=== PATIENT | male | born 1935 | race Caucasian/White ===

== ENCOUNTER → 2017-04-21 09:00 | Outpatient (CLI) | payer MEDICARE, OTHER, SELFPAY ==
[2017-04-21 13:02] LABS: Prothrombin Time (Protime)PT. 21.5 SECONDS (11.7-14.9)
== END ==
PROVIDERS: Visit Provider Internal Medicine Cardiovascular Disease
DX: I48.0 Paroxysmal atrial fibrillation (principal)
CPT/HCPCS: 85610

== ENCOUNTER → 2017-06-23 11:55 | Outpatient (CLI) | payer MEDICARE, SELFPAY | PROVIDERS: PCP Family Medicine; Visit Provider Internal Medicine Cardiovascular Disease | DX: I48.0 Paroxysmal atrial fibrillation (principal) | CPT/HCPCS: 85610 ==

== ENCOUNTER → 2017-08-11 11:45 | Outpatient (CLI) | payer MEDICARE, SELFPAY ==
[2017-08-11 12:05] LABS: International Normalized Ratio 3.1; Prothrombin Time (Protime)PT. 32.5 SECONDS (11.7-14.9)
== END ==
PROVIDERS: Visit Provider Internal Medicine Cardiovascular Disease
DX: I48.0 Paroxysmal atrial fibrillation (principal)
CPT/HCPCS: 85610

== ENCOUNTER → 2017-08-25 08:49 | Outpatient (CLI) | payer MEDICARE, SELFPAY ==
--- NOTE | 2017-08-25 08:49 | DT_ITS ---
This patient was seen during an EMR downtime August 24, 2017 - August 31, 2017. This patient may have a combination of paper and electronic documentation or all paper documentation. All documentation is viewable within the e-chart portion of [facility] for each patient visit.
[2017-09-01 15:47] LABS: International Normalized Ratio 2.4; Prothrombin Time (Protime)PT. 26.1 SECONDS (11.7-14.9)
== END ==
PROVIDERS: PCP Family Medicine; Visit Provider Internal Medicine Cardiovascular Disease
DX: I48.0 Paroxysmal atrial fibrillation (principal)
CPT/HCPCS: 85610

== ENCOUNTER → 2017-08-26 13:55 | Outpatient (CLI) | payer MEDICARE, SELFPAY ==
--- NOTE | 2017-08-26 13:55 | DT_ITS ---
This patient was seen during an EMR downtime August 24, 2017 - August 31, 2017. This patient may have a combination of paper and electronic documentation or all paper documentation. All documentation is viewable within the e-chart portion of [facility] for each patient visit.
[2017-08-31 16:02] LABS: Alanine Aminotransfer ALT/SGPT 38 U/L (16-61); CPK Total, Creatine Kinase 135 U/L (39-308)
[2017-09-01 16:54] LABS: Cholesterol 88 mg/dL (200); High Density Lipoprotein 36 mg/dL; Triglycerides 54 mg/dL; Very Low Density Lipoprotein 11 mg/dL (5-40)
== END ==
PROVIDERS: Visit Provider Internal Medicine Cardiovascular Disease
DX: I25.10 Atherosclerotic heart disease of native coronary artery without angina pectoris (principal)
CPT/HCPCS: 80061; 82550; 84460

== ENCOUNTER → 2017-09-08 12:23 | Outpatient (CLI) | payer MEDICARE, SELFPAY ==
[2017-09-08 12:40] LABS: International Normalized Ratio 2.2; Prothrombin Time (Protime)PT. 24.3 SECONDS (11.7-14.9)
== END ==
PROVIDERS: Visit Provider Internal Medicine Cardiovascular Disease
DX: I48.0 Paroxysmal atrial fibrillation (principal)
CPT/HCPCS: 85610

== ENCOUNTER → 2017-09-22 12:37 | Outpatient (CLI) | payer MEDICARE, SELFPAY | PROVIDERS: Family Provider Family Medicine; PCP Family Medicine; Visit Provider Internal Medicine Cardiovascular Disease | DX: I48.0 Paroxysmal atrial fibrillation (principal) | CPT/HCPCS: 85610 ==

== ENCOUNTER 2017-10-06 15:17 | Emergency (ER) | payer MEDICARE, SELFPAY ==
[2017-10-06 15:18] VITALS: BP 147/83; PULSE 70; RESP 18; TEMP 37.1; O2SAT 97; BMI 23.6
--- NOTE | 2017-10-06 16:02 | VDLE_ITS ---
Reason For Study: swelling RIGHT LEFT GSV is normal. CFV is compressible, spontaneous, phasic, CFV is compressible, spontaneous, phasic, competent, and demonstrates normal competent and demonstrates normal augmentation. augmentation. FV is compressible, spontaneous, phasic, competent and demonstrates normal augmentation. POP V is compressible, spontaneous, phasic, competent and demonstrates normal augmentation. T/P Trunk is compressible. PTV is compressible. RT PerV is compressible. Procedure Exam performed portable in ED. The exam was diagnostic. A preliminary report was called and/or faxed to Dr. Gillespie. Interpretation Summary Deep veins of the right lower extremity are patent and compressible segmentally. There is no evidence of right lower extremity deep vein thrombosis. Valvular competence appears intact within the proximal deep venous system on the right . The right greater saphenous vein appears patent and compressible segmentally. Ordering Physician: Kristian Gillespie Performed By: Cuauhtemoc Chapin RVDawna
--- NOTE | 2017-10-06 16:03 | ED.VISSUMM ---
- ER Visit Summary Date of Service: 10/06/17 Chief Complaint: Atraumatic right lower leg swelling History of Present Illness: The patient is a 82 M currently on Coumadin for A. fib. The last 2+ days he had atraumatic right lower leg and foot swelling. No prior history. No prior blood clot. No recent travel, immobilization or hospitalization. No recent surgery. He denies any pain. No trouble walking on it. He Physical Examination: Well-appearing older male. Vital signs are stable afebrile. Accompanied by his . H EENT exam unremarkable. Neck nontender. Lungs clear to auscultation bilaterally. Heart regular rhythm no murmur. Abdomen soft nontender. Moving all 4 extremities. Neurovascular intact. He is trace edema and is very lower right lower leg and lateral foot. DP pulses intact. The foot is completely nontender. There is no bony deformities or tenderness. No redness or warmth. No signs of trauma. He is able to wiggle his toes. His normal touch sensation. Calf is nontender without cords. Neurologically is awake and alert. 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 Noninvasive study of his right lower extremity no DVT per the reimbursement representative. Emergency Department Course and Treatment: Repeat exam patient doing well at 1630. They are comfortable being discharged home. He is having no pain and is fine with no x-ray being obtained at this time. He will elevate his leg if this does not improve he will follow-up. He was instructed his INR was slightly subtherapeutic at 1.7 and was instructed to take an extra dose this evening. Treatment Plan: Follow-up with his primary care physician if not improving. Disposition: Discharge Impression: Acute right lower leg and foot mild swelling and edema secondary to venous insufficiency Subtherapeutic INR 1.7 This note was generated with [employer] dictation software. It may contain incorrect words, spelling, and punctuation that were not noted in review of the chart prior to signing ED Disposition - Plan for ED Patient: Chief Complaint: Edema Referrals: Joseph Mora MD [Primary Care Provider] -
--- NOTE | 2017-10-06 16:06 | ED.DCSUM_ITS ---
- ER Visit Summary Date of Service: 10/06/17 Chief Complaint: Atraumatic right lower leg swelling History of Present Illness: The patient is a 82 M currently on Coumadin for A. fib. The last 2+ days he had atraumatic right lower leg and foot swelling. No prior history. No prior blood clot. No recent travel, immobilization or hospitalization. No recent surgery. He denies any pain. No trouble walking on it. He Physical Examination: Well-appearing older male. Vital signs are stable afebrile. Accompanied by his . H EENT exam unremarkable. Neck nontender. Lungs clear to auscultation bilaterally. Heart regular rhythm no murmur. Abdomen soft nontender. Moving all 4 extremities. Neurovascular intact. He is trace edema and is very lower right lower leg and lateral foot. DP pulses intact. The foot is completely nontender. There is no bony deformities or tenderness. No redness or warmth. No signs of trauma. He is able to wiggle his toes. His normal touch sensation. Calf is nontender without cords. Neurologically is awake and alert. 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 Noninvasive study of his right lower extremity no DVT per the apprenticeship consultant. Emergency Department Course and Treatment: Repeat exam patient doing well at 1630. They are comfortable being discharged home. He is having no pain and is fine with no x-ray being obtained at this time. He will elevate his leg if this does not improve he will follow-up. He was instructed his INR was slightly subtherapeutic at 1.7 and was instructed to take an extra dose this evening. Treatment Plan: Follow-up with his primary care physician if not improving. Disposition: Discharge Impression: Acute right lower leg and foot mild swelling and edema secondary to venous insufficiency Subtherapeutic INR 1.7 This note was generated with [email or web address] dictation software. It may contain incorrect words, spelling, and punctuation that were not noted in review of the chart prior to signing ED Disposition - Plan for ED Patient: Chief Complaint: Edema Referrals: Joseph Mora MD [Primary Care Provider] -
--- NOTE | 2017-10-06 16:34 | ED.DEP ---
ED Disposition - Plan for ED Patient: Disposition: Home or Assisted Living Chief Complaint: Edema Instructions: ED Leg Swelling Unilateral Referrals: Joseph Mora MD [Primary Care Provider] - 1 Week if not improving Additional Instructions: Your warfarin level was subtherapeutic today at 1.7. You may want to take an extra 2 mg p.o. this evening. And then take your normal dose tomorrow. Follow-up with your doctor if the swelling does not resolve or gets worse.
[2017-10-06 16:48] VITALS: BP 132/68; PULSE 68; RESP 16; O2SAT 97
== END 2017-10-06 16:49 | disposition home or self-care (01) ==
PROVIDERS: Emergency Provider Emergency Medicine; Family Provider Family Medicine; PCP Family Medicine
DX: I87.2 Venous insufficiency (chronic) (peripheral) (principal); I48.91 Unspecified atrial fibrillation; Z79.01 Long term (current) 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
CPT/HCPCS: 93971; 99282

== ENCOUNTER → 2017-10-13 13:07 | Outpatient (CLI) | payer MEDICARE, SELFPAY ==
[2017-10-13 13:28] LABS: International Normalized Ratio 2.3; Prothrombin Time (Protime)PT. 25.2 SECONDS (11.7-14.9)
== END ==
PROVIDERS: Family Provider Family Medicine; PCP Family Medicine; Visit Provider Internal Medicine Cardiovascular Disease
DX: I48.0 Paroxysmal atrial fibrillation (principal)
CPT/HCPCS: 85610

== ENCOUNTER → 2017-10-20 08:32 | Outpatient (CLI) | payer MEDICARE, SELFPAY ==
[2017-10-20 15:34] LABS: International Normalized Ratio 0.9; Prothrombin Time (Protime)PT. 12.1 SECONDS (11.7-14.9)
== END ==
PROVIDERS: Family Provider Family Medicine; PCP Family Medicine; Visit Provider Internal Medicine Cardiovascular Disease
DX: I48.0 Paroxysmal atrial fibrillation (principal)
CPT/HCPCS: 85610

== ENCOUNTER → 2017-10-27 12:32 | Outpatient (CLI) | payer MEDICARE, SELFPAY ==
[2017-10-27 13:00] LABS: International Normalized Ratio 2.2; Prothrombin Time (Protime)PT. 24.3 SECONDS (11.7-14.9)
== END ==
PROVIDERS: Family Provider Family Medicine; PCP Family Medicine; Visit Provider Internal Medicine Cardiovascular Disease
DX: I48.0 Paroxysmal atrial fibrillation (principal)
CPT/HCPCS: 85610

== ENCOUNTER → 2017-11-03 12:00 | Outpatient (CLI) | payer MEDICARE, SELFPAY ==
[2017-11-03 12:23] LABS: International Normalized Ratio 2.3; Prothrombin Time (Protime)PT. 25.8 SECONDS (11.7-14.9)
== END ==
PROVIDERS: Family Provider Family Medicine; PCP Family Medicine; Visit Provider Internal Medicine Cardiovascular Disease
DX: I48.0 Paroxysmal atrial fibrillation (principal)
CPT/HCPCS: 85610

== ENCOUNTER → 2017-11-17 11:57 | Outpatient (CLI) | payer MEDICARE, SELFPAY ==
[2017-11-17 12:16] LABS: International Normalized Ratio 2.3; Prothrombin Time (Protime)PT. 25.8 SECONDS (11.7-14.9)
== END ==
PROVIDERS: Family Provider Family Medicine; PCP Family Medicine; Visit Provider Internal Medicine Cardiovascular Disease
DX: I48.0 Paroxysmal atrial fibrillation (principal)
CPT/HCPCS: 85610

== ENCOUNTER → 2018-01-12 15:38 | Outpatient (CLI) | payer MEDICARE, SELFPAY ==
[2018-01-12 16:48] LABS: International Normalized Ratio 2.4; Prothrombin Time (Protime)PT. 26.5 SECONDS (11.7-14.9)
== END ==
PROVIDERS: Family Provider Family Medicine; PCP Family Medicine; Referring Provider Internal Medicine Cardiovascular Disease; Visit Provider Internal Medicine Cardiovascular Disease
DX: I48.0 Paroxysmal atrial fibrillation (principal)
CPT/HCPCS: 85610

== ENCOUNTER → 2018-02-09 10:01 | Outpatient (CLI) | payer MEDICARE, SELFPAY | PROVIDERS: PCP Family Medicine; Visit Provider Internal Medicine Cardiovascular Disease | DX: I48.0 Paroxysmal atrial fibrillation (principal) | CPT/HCPCS: 85610 ==

== ENCOUNTER → 2018-03-09 11:55 | Outpatient (CLI) | payer MEDICARE, SELFPAY ==
[2018-03-09 13:04] LABS: International Normalized Ratio 2.2; Prothrombin Time (Protime)PT. 24.5 SECONDS (11.7-14.9)
--- OUTSIDE RECORDS SUMMARY | 2018-06-10 21:30 | XMS RPT_ITS ---
:1935 Author Organization OHIP Support Name Relationship Address Phone KAILASH HULL Unavailable Unavailable + [place] [address] TOÑITO HULL Unavailable [address] + [place] [address] R Unavailable Unavailable Unavailable DELLA, KAILASH Unavailable Unavailable + [place] [address] DELLA TOÑITO Unavailable [address] + [place] [address] R Unavailable Unavailable Unavailable DELLA, KAILASH Unavailable Unavailable + [place] [address] DELLA TOÑITO Unavailable [address] + [place] [address] R Unavailable Unavailable Unavailable DELLA, KAILASH Unavailable Unavailable + [place] [address] DELLA TOÑITO Unavailable [address] + [place] [address] R Unavailable Unavailable Unavailable DELLA, KAILASH Unavailable Unavailable + [place] [address] DELLA TOÑITO Unavailable [address] + [place] [address] R Unavailable Unavailable Unavailable DELLA, KAILASH Unavailable Unavailable + [place] [address] DELLA TOÑITO Unavailable [address] + [place] [address] R Unavailable Unavailable Unavailable DELLA, KAILASH Unavailable Unavailable + [place] [address] DELLA TOÑITO Unavailable [address] + [place] [address] R Unavailable Unavailable Unavailable DELLA, KAILASH Unavailable Unavailable + [place] [address] DELLA TOÑITO Unavailable [address] + [place] [address] R Unavailable Unavailable Unavailable DELLA, KAILASH Unavailable Unavailable + [place] [address] DELLA, TOÑITO Unavailable [address] + [place] [address] R Unavailable Unavailable Unavailable DELLA, KAILASH Unavailable Unavailable + [place] [address] DELLA, TOÑITO Unavailable [address] + [place] [address] R Unavailable Unavailable Unavailable DELLA, KAILASH Unavailable Unavailable + [place] [address] DELLA, TOÑITO Unavailable [address] + [place] [address] R Unavailable Unavailable Unavailable DELLA, KAILASH Unavailable Unavailable + [place] [address] DELLA, TOÑITO Unavailable [address] + [place] [address] R Unavailable Unavailable Unavailable DELLA, KAILASH Unavailable Unavailable + [place] [address] DELLA, TOÑITO Unavailable [address] + [place] [address] R Unavailable Unavailable Unavailable DELLA, KAILASH Unavailable Unavailable + [place] [address] DELLA, TOÑITO Unavailable [address] + [place] [address] R Unavailable Unavailable Unavailable DELLA, KAILASH Unavailable Unavailable + [place] [address] DELLA, TOÑITO Unavailable [address] + [place] [address] R Unavailable Unavailable Unavailable DELLA, KAILASH Unavailable Unavailable + [place] [address] DELLA, TOÑITO Unavailable [address] + [place] [address] R Unavailable Unavailable Unavailable DELLA, TOÑITO Unavailable [address] + [place] [address] R Unavailable Unavailable Unavailable Care Team Providers Name Role Phone Rosanna Oliveira Attending Unavailable Rosanna Oliveira Referring Unavailable Stas Carter Primary Care Unavailable Rosanna Oliveira Attending Unavailable Rosanna Oliveira Referring Unavailable Stas Carter Primary Care Unavailable Katelin Henry Consulting Unavailable Tee, Rosanna Attending Unavailable [facility] Unavailable Rock, Rosanna Referring Unavailable Rock, Rosanna Attending Unavailable Tee, Rosanna Attending Unavailable Tee, Rosanna Referring Unavailable Tee, Rosanna Attending Unavailable Rock, Rosanna Referring [facility]available [facility] [place] [facility] Unavailable Rock, Rosanna Attending [facility]available Rock, Rosanna Referring Unavailable Rock, Rosanna Attending Unavailable [facility] Unavailable Tee, Rosanna Attending Unavailable Tee, Rosanna Attending Unavailable [facility] Unavailable Rock, Rosanna Referring Unavailable Tee, Rosanna Attending Unavailable [facility] Unavailable Tee, Rosanna Attending Unavailable Tee, Rosanna Referring Unavailable [facility] Unavailable Rock, Rosanna Attending Unavailable [facility] Unavailable Tee, Rosanna Referring Unavailable [facility] Unavailable Kristian Gillespie Attending Unavailable Tee, Rosanna Attending Unavailable [facility] Unavailable Tee, Rosanna Attending Unavailable Tee, Rosanna Attending Unavailable [facility] Unavailable Tee, Rosanna Referring Unavailable TEE, ROSANNA E Attending Unavailable TEE, ROSANNA E Referring Unavailable TEE, ROSANNA E Referring Unavailable TEE, ROSANNA E Referring Unavailable TEE, ROSANNA E Referring Unavailable TEE, ROSANNA E Referring Unavailable TEE, ROSANNA E Referring Unavailable TEE, ROSANNA E Referring Unavailable TEE, ROSANNA E Referring Unavailable TEE, ROSANNA E Referring Unavailable TEE, ROSANNA E Referring Unavailable TEE, ROSANNA E Referring Unavailable TEE, ROSANNA E Referring Unavailable TEE, ROSANNA E Referring Unavailable TEE, ROSANNA E Referring Unavailable TEE, ROSANNA E Referring Unavailable TEE, ROSANNA E Referring Unavailable TEE, ROSANNA E Referring Unavailable TEE, ROSANNA E Referring Unavailable TEE, ROSANNA E Referring Unavailable TEE, ROSANNA E Referring Unavailable TEE, ROSANNA E Referring Unavailable TEE, ROSANNA E Referring Unavailable TEE, ROSANNA E Referring Unavailable GABRIELA RAMIREZ ([facility]) Attending Unavailable TEE, ROSANNA E Referring Unavailable TEE, ROSANNA E Referring Unavailable TEE, ROSANNA E Referring Unavailable TEE, ROSANNA E Referring Unavailable TEE, ROSANNA E Referring Unavailable TEE, ROSANNA E Referring Unavailable TEE, ROSANNA E Referring Unavailable RORO NUÑEZ ([place]) Attending Unavailable TEE, ROSANNA E Referring Unavailable KATELIN MORROW (SENIOR PRODUCT DEVELOPMENT SCIENTIST) Attending Unavailable TEE, ROSANNA E Attending Unavailable TEE, ROSNANA E Referring Unavailable TEE, ROSANNA Attending Unavailable TEE, ROSANNA Referring Unavailable Morgan Stas Maya Primary Care Unavailable TEE, ROSANNA Attending Unavailable TEE, ROSANNA Referring Unavailable Stas Carter Primary Care Unavailable PROBLEMS PROBLEMS DATE TYPE CONDITION / CODE ATTENDING STATUS SOURCE 04/05/2018 Unknown I48.0 - Paroxysmal Tee, Active [place] atrial fibrillation [facility] / I48.0(ICD-10) Hospital Repository 09/22/2016 Active Paroxysmal atrial NA Active [place] fibrillation / [facility] I48.0(ICD-10) [place] Repository 09/16/2017 Unknown I25.10 - Rock, Active [place] Atherosclerotic [facility] heart disease of [facility] [place] coronary Repository artery without angina pectoris / I25.10(ICD-10) 06/24/2017 Active Dizziness and NA Active [place] giddiness / [facility] R42(ICD-10) [place] Repository 06/02/2017 Active Atherosclerotic TEE, Active [place] heart disease of [facility] Other [place] coronary [place] artery without Repository angina pectoris / I25.10(ICD-10) 06/02/2017 Admitting Unknown / TEE, Active [place] [facility] diagnosis UNK(Unknown) [facility] Repository PROCEDURES PROCEDURES No Procedure Records FoundRESULTS RESULTS PROGRESS Observed: 04/05/2018 Status: COMPLETED Source: [place] 9:54 AM [facility] REPOSITORY HNO ID: [id number] Author: Katelin Montague (Marylu) Cristhian Service: (none) Author Type: Nurse Practitioner Type: Progress Notes Filed: 04/05/2018 11:44 AM Note Text: Chief Complaint Patient presents with: Mouth/Lip Problem: top of tongue is sore and creases of mouth are sore HPI Geronimo Flores is a 82 year old male who presents here today for Above Complaints. Patient previously seen on 12/15/17 for angular cheilitis and was prescribed Lotrimin cream and Nystatin swish and spit he has been using without relief. States the past month he has experienced an increase in dry mouth with difficulty swallowing in morning. States chewing gum helps. Also taking OTC medication to help with dry mouth and dry throat with minimal relief. Also having complaints of a burning sensation in the top of his tongue he has been experiencing x 2 weeks and rates 7/10. States chewing gum helps to relieve his tongue discomfort. He has had his dentures since the 1959' and is to be fitted tomorrow at the [place] for [facility] [place]. Reports brushing dentures twice daily while soaking them in efferdent every night. Reports sleeping with his mouth open. States he normally does not drink much water but has been increasing his water intake over the past couple of weeks. Denies difficulty swallowing or chewing and loss of appetite. Denies worsening or improvement in his symptoms from November. Also reports film on lips he began noticing 2-3 weeks ago in the morning after he wakes up. The ROS is otherwise negative. Past medical history, appointments, medications, allergies reviewed. Patient Allergies ALLERGIES No Known Allergies Current Medications Current Outpatient Prescriptions on File Prior to Visit: warfarin (COUMADIN) 2.5 mg tablet TAKE 5MG, 2.5MG, 2.5 MG AND REPEAT, OR DIRECTED atorvastatin (LIPITOR) 80 mg tablet Take 0.5 tablets by mouth once daily. fosinopril (MONOPRIL) 10 mg tablet Take 1 tablet by mouth once daily. ADULT ASPIRIN 81 MG CHEWABLE TAB Take one(1) tablet daily. nystatin (MYCOSTATIN) 100,000 unit/mL suspension Take 5 mL by mouth four times daily. 1tsp swish in mouth for several minutes, then swallow (or expectorate) 4 times daily until gone. (Patient not taking: Reported on 02/02/2018 ) sildenafil (VIAGRA) 100 mg tablet warfarin (COUMADIN) 2 mg tablet Take 1 tablet by mouth once daily. Or as directed No current facility-administered medications on file prior to visit. Previous Medical History PAST MEDICAL HISTORY Diagnosis Date - Coronary atherosclerosis of unspecified type of vessel, [place] or graft Coronary artery disease - Other and unspecified hyperlipidemia - Unspecified essential hypertension Essential hypertension Previous Surgical History PAST SURGICAL HISTORY Procedure Laterality Date - APPENDECTOMY - PERC TRANSL COR ANGIO 2005 last time Percutaneous Transluminal Coronary Angio Status 3 procedures Family History FAMILY HISTORY Problem Relation Age of Onset - Arthritis Mother - Alcohol/Drug Father - Stroke Father - Cancer Brother 50 Stomach cancer Social History Social History Marital status: Spouse name: Years of education: Number of children: 2 Social History Main Topics Smoking status: Former Smoker Packs/day: 0.00 Years: 0.00 Smokeless tobacco: Never Used Comment: 30 yaers ago Alcohol use: No Drug use: No EXAM: BP 148/70 (BP Site: Left Arm, BP Position: Sitting, BP Cuff Size: Large Adult) Pulse 76 Temp 36.4 ?C (97.5 ?F) (Tympanic) Resp 18 Wt 81.2 kg (179 lb) BMI 24.28 kg/m? General Appearance: Well appearing, alert, in no acute distress, well-hydrated, well nourished.. Skin: Skin color, texture, turgor normal, no suspicious rashes or lesions, Positives: Angular cheilitis. Nose/Sinuses: Nares normal, septum midline, mucosa normal, no drainage or sinus tenderness. Oropharynx: Lips, mucosa, gums normal, oropharynx normal and Positive findings: cheilitis. Fissured tongue. Positive for Dentures. Positive posterior oropharynx doan-colored mucous. Lungs: lungs clear to auscultation. No wheezing, rhonchi, rales. Heart: RRR without murmur, gallop, or rubs. No ectopy. ASSESSMENT/PLAN: 1. Angular cheilitis - ICD9: 528.5, ICD10: K13.0 (primary diagnosis) - CLOTRIMAZOLE 10 MG HARESH - FUNGAL CULTURE AND SMEAR-HAIR,SKIN,NAIL - Increase intake of non-caffeinated fluids - Humidifier at home - Salt water gargles at home - See patient instructions. 2. Paroxysmal atrial fibrillation (HCC) - ICD9: 427.31, ICD10: I48.0 -Follows with Cardiology Katelin Morrow, MSN SAMPLE BUILDER.SHEMAR BREWER Observed: 04/05/2018 Status: COMPLETED Source: [place] 9:40 AM [facility] REPOSITORY Office Visit (FAMPWS) GERONIMO FLORES ([id number]) 1935 M Date Time Provider Department 04/05/18 9:40 AM KATELIN MORROW (SENIOR PRODUCT DEVELOPMENT SCIENTIST) ZAKI During your visit today, we recorded the following information about you: Temperature Pulse Respiration Blood pressure 97.5 degrees 76/minute 18/minute 148/70 Weight 81.2 kg Katelin Morrow, MSN SAMPLE BUILDER.SUPERVISOR CIGAR MAKING HAND 04/05/2018 11:44 AM Signed Chief Complaint Patient presents with: Mouth/Lip Problem: top of tongue is sore and creases of mouth are sore HPI Geronimo Flores is a 82 year old male who presents here today for Above Complaints. Patient previously seen on 12/15/17 for angular cheilitis and was prescribed Lotrimin cream and Nystatin swish and spit he has been using without relief. States the past month he has experienced an increase in dry mouth with difficulty swallowing in morning. States chewing gum helps. Also taking OTC medication to help with dry mouth and dry throat with minimal relief. Also having complaints of a burning sensation in the top of his tongue he has been experiencing x 2 weeks and rates 7/10. States chewing gum helps to relieve his tongue discomfort. He has had his dentures since the 1959's and is to be fitted tomorrow at the [place] for new [facility]. Reports brushing dentures twice daily while soaking them in efferdent every night. Reports sleeping with his mouth open. States he normally does not drink much water but has been increasing his water intake over the past couple of weeks. Denies difficulty swallowing or chewing and loss of appetite. Denies worsening or improvement in his symptoms from November. Also reports film on lips he began noticing 2-3 weeks ago in the morning after he wakes up. The ROS is otherwise negative. Past medical history, appointments, medications, allergies reviewed. Patient Allergies ALLERGIES No Known Allergies Current Medications Current Outpatient Prescriptions on File Prior to Visit: warfarin (COUMADIN) 2.5 mg tablet TAKE 5MG, 2.5MG, 2.5 MG AND REPEAT, OR DIRECTED atorvastatin (LIPITOR) 80 mg tablet Take 0.5 tablets by mouth once daily. fosinopril (MONOPRIL) 10 mg tablet Take 1 tablet by mouth once daily. ADULT ASPIRIN 81 MG CHEWABLE TAB Take one(1) tablet daily. nystatin (MYCOSTATIN) 100,000 unit/mL suspension Take 5 mL by mouth four times daily. 1tsp swish in mouth for several minutes, then swallow (or expectorate) 4 times daily until gone. (Patient not taking: Reported on 02/02/2018 ) sildenafil (VIAGRA) 100 mg tablet warfarin (COUMADIN) 2 mg tablet Take 1 tablet by mouth once daily. Or as directed No current facility-administered medications on file prior to visit. Previous Medical History PAST MEDICAL HISTORY Diagnosis Date - Coronary atherosclerosis of unspecified type of vessel, [place] or graft Coronary artery disease - Other and unspecified hyperlipidemia - Unspecified essential hypertension Essential hypertension Previous Surgical History PAST SURGICAL HISTORY Procedure Laterality Date - APPENDECTOMY - PERC TRANSL COR ANGIO 2005 last time Percutaneous Transluminal Coronary Angio Status 3 procedures Family History FAMILY HISTORY Problem Relation Age of Onset - Arthritis Mother - Alcohol/Drug Father - Stroke Father - Cancer Brother 50 Stomach cancer Social History Social History Marital status: Spouse name: Years of education: Number of children: 2 Social History Main Topics Smoking status: Former Smoker Packs/day: 0.00 Years: 0.00 Smokeless tobacco: Never Used Comment: 30 yaers ago Alcohol use: No Drug use: No EXAM: BP 148/70 (BP Site: Left Arm, BP Position: Sitting, BP Cuff Size: Large Adult) Pulse 76 Temp 36.4 ?C (97.5 ?F) (Tympanic) Resp 18 Wt 81.2 kg (179 lb) BMI 24.28 kg/m? General Appearance: Well appearing, alert, in no acute distress, well-hydrated, well nourished.. Skin: Skin color, texture, turgor normal, no suspicious rashes or lesions, Positives: Angular cheilitis. Nose/Sinuses: Nares normal, septum midline, mucosa normal, no drainage or sinus tenderness. Oropharynx: Lips, mucosa, gums normal, oropharynx normal and Positive findings: cheilitis. Fissured tongue. Positive for Dentures. Positive posterior oropharynx doan-colored mucous. Lungs: lungs clear to auscultation. No wheezing, rhonchi, rales. Heart: RRR without murmur, gallop, or rubs. No ectopy. ASSESSMENT/PLAN: 1. Angular cheilitis - ICD9: 528.5, ICD10: K13.0 (primary diagnosis) - CLOTRIMAZOLE 10 MG HARESH - FUNGAL CULTURE AND SMEAR-HAIR,SKIN,NAIL - Increase intake of non-caffeinated fluids - Humidifier at home - Salt water gargles at home - See patient instructions. 2. Paroxysmal atrial fibrillation (HCC) - ICD9: 427.31, ICD10: I48.0 -Follows with Cardiology Katelin Morrow, MSN SAMPLE BUILDER.SUPERVISOR CIGAR MAKING HAND Katelin Morrow, MSN SAMPLE BUILDER.SUPERVISOR CIGAR MAKING HAND 04/05/2018 10:26 AM Signed 1. Warm salt water gargles 2-3 times/day 2. Humidifier 3. Increase water intake 4. Begin using the antifungal lozenges. 5 times/day Referring Provider: SELF [200] Allergies As of Date: 04/05/2018 (No Known Allergies) Date Reviewed: 04/05/2018 Reviewed by: Katelin Montague (Aeroplane Pilot) Cristhian - Fully Assessed Reason for Visit: Mouth/Lip Problem [68] Cmt: top of tongue is sore and creases of mouth are sore Primary Visit Diagnosis:Angular cheilitis [K13.0] Other Visit Diagnosis:Paroxysmal atrial fibrillation (HCC) [I48.0] Order(s):clotrimazole (MYCELEX) 10 mg trocheSLOWLY DISSOLVE IN MOUTH 5 (FIVE) TIMES A DAY FOR 2 WEEKS. DO NOT CHEW OR SWALLOW WHOLEDisp: 70 tabletRfl: 0 FUNGAL CULTURE AND SMEAR-HAIR,SKIN,NAIL [SQFHSNSM] Order #: [id number] Prescriptions as of 04/05/2018 Sig: WARFARIN 2.5 MG TABLET TAKE 5MG, 2.5MG, 2.5 MG AND R* ATORVASTATIN 80 MG TABLET Take 0.5 tablets by mouth onc* FOSINOPRIL 10 MG TABLET Take 1 tablet by mouth once d* * ADULT ASPIRIN 81 MG CHEWABLE * Take one(1) tablet daily. 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 Warm salt water gargles 2-3 times/day 2. Humidifier 3. Increase water intake 4. Begin using the antifungal lozenges. 5 times/day Prescriptions ordered this encounter Disp Refills Start End CLOTRIMAZOLE 10 MG HARESH 70 t* 0 04/05/2018 04/05/2018 Sig: SLOWLY DISSOLVE IN MOUTH 5 (FIVE) TIMES A DAY FOR 2 WEEKS. DO NOT CHEW OR SWALLOW WHOLE CLOTRIMAZOLE 10 MG HARESH 70 t* 0 04/05/2018 Sig: SLOWLY DISSOLVE IN MOUTH 5 (FIVE) TIMES A DAY FOR 2 WEEKS. DO NOT CHEW OR SWALLOW WHOLE Medications Discontinued During This Encounter nystatin (MYCOSTATIN) 100,000 unit/m* 200 * 0 12/15/2017 04/05/2018 Route: ORAL Sig: Take 5 mL by mouth four times daily. 1tsp swish in mouth for several minutes, then swallow (or expectorate) 4 times daily until gone. Patient not taking: Reported on 02/02/2018 Disc: Course of therapy completed sildenafil (VIAGRA) 100 mg tablet 0 09/26/2016 04/05/2018 Class: Historical Med Sig: Disc: Discontinued by Patient clotrimazole (MYCELEX) 10 mg haresh 70 t* 0 04/05/2018 04/05/2018 Sig: SLOWLY DISSOLVE IN MOUTH 5 (FIVE) TIMES A DAY FOR 2 WEEKS. DO NOT CHEW OR SWALLOW WHOLE Disc: Reason for discontinue is not on file. Encounter Status:Closed by KATELIN MORROW CNP on 04/05/18 PROTIME Collected: 04/05/2018 Status: F Source: [place] 9:05 AM [facility] REPOSITORY TYPE CODE TESTS RESULT OUT OF REFERENCE UNITS RANGE LAB PSEC 9.7-13.0 sec Test PT sent to [facility]. Result Comment: Account Credited HIDE LAB INR 0.9-1.3 Test sent to PT INR [facility]. Result Comment: Account Credited HIDE PROTHROMBIN TIME W/INR Collected: 04/05/2018 Status: F Source: [place] 9:04 AM [facility] REPOSITORY TYPE CODE TESTS RESULT OUT OF RANGE REFERENCE UNITS LAB L300.4150 11.7-14.9 SECONDS High PROTIME 22.6 LAB L300.4200 Normal INR 2.0 Performed By: #### L300.3900 #### [facility] Laboratory [address] [place], [address] PROTHROMBIN TIME W/INR Collected: 03/09/2018 Status: F Source: [place] 8:21 AM [facility] REPOSITORY TYPE CODE TESTS RESULT OUT OF RANGE REFERENCE UNITS LAB L300.4150 11.7-14.9 SECONDS High PROTIME 24.5 LAB L300.4200 Normal INR 2.2 Performed By: #### L300.3900 #### [facility] [address] [place], [address] PROTIME Collected: 03/09/2018 Status: F Source: [place] 8:19 AM [facility] REPOSITORY TYPE CODE TESTS RESULT OUT OF REFERENCE UNITS RANGE LAB PSEC 9.7-13.0 sec Test PT sent to [facility]. Result Comment: Account Credited LAB INR 0.9-1.3 Test sent to PT INR [facility]. Result Comment: Account Credited PROTIME Collected: 02/09/2018 Status: F Source: [place] 9:02 AM [facility] REPOSITORY TYPE CODE TESTS RESULT OUT OF REFERENCE UNITS RANGE LAB PSEC 9.7-13.0 sec Test PT sent to [facility]. Result Comment: Account Credited LAB INR 0.9-1.3 Test sent to PT INR [facility]. Result Comment: Account Credited PROTHROMBIN TIME W/INR Collected: 02/09/2018 Status: F Source: [place] 8:48 AM [facility] REPOSITORY TYPE CODE TESTS RESULT OUT OF RANGE REFERENCE UNITS LAB L300.4150 11.7-14.9 SECONDS High PROTIME 23.0 LAB L300.4200 Normal INR 2.0 Performed By: #### L300.3900 #### [facility] [address] [place], [address] PROGRESS Observed: 02/02/2018 Status: COMPLETED Source: [place] 8:54 AM [facility] REPOSITORY O ID: [id number] Author: Rosanna Oliveira Service: (none) Author Type: Physician Type: Progress Notes Filed: 02/02/2018 9:51 AM Note Text: PERTINENT CARDIAC HISTORY ASHD - PCI LAD 2003 HTN HL Carotid disease Syncope PAF ADHERENCE TO GUIDELINES MASTER-I or ARB for HF with prior LVEF<40 (NQF 0081) - N/A ASA or Plavix for ASHD (NQF 0067) - MET Beta jazmin for ASHD with prior CA or prior LVEF<40 (NQF 0070) - N/A Beta jazmin for HF with prior LVEF<40 (NQF 0083) - N/A MASTER-I or ARB for ASHD with DM or prior LVEF<40 (NQF 0066) - N/A Statin therapy for ASHD or FHL or DM - MET BMI documented and plan if >25 (NQF 0421) - lifestyle recommendation form Tobacco use screening and referral (NQF 0028) - lifestyle recommendation form Recommendation for whole food, plant based diet - lifestyle recommendation form CLINICAL IMPRESSION/PLAN: Geronimo Flores has stable ischemic heart disease. He's had no recurrent syncope. His blood pressure is still borderline low. I recommend that he decrease lisinopril to 10 milligrams daily and update me with vital signs in one to 2 weeks. His Lipitor will be decreased to 40 milligrams daily. I asked him to provide us copies of laboratory studies that are done at the [place]. I recommend that he be seen again in cardiology to 8 months. If he has recurrent syncope, loop recorder will be recommended. Written and verbal health teaching given to patient, patient verbalizes understanding and agrees with treatment plan. DIAGNOSIS FOR VISIT: ASHD PAF HISTORY OF PRESENT ILLNESS Geronimo Flores returns for follow-up of multiple cardiac issues, as noted above. He reports stable exercise tolerance. He's had no chest discomfort. He's had no recurrent syncope. He has occasional lightheadedness when he stands suddenly. Blood pressures at home have the been as low as 100 systolic. He's had no orthopnea, edema, palpitations, TIAs, amaurosis. ALLERGIES: ALLERGIES No Known Allergies CURRENT OUTPATIENT MEDICATIONS: atorvastatin (LIPITOR) 80 mg tablet Take 1 tablet by mouth once daily. Fosinopril Sodium 40 mg tablet Take 1/2 tablet daily warfarin (COUMADIN) 2.5 mg tablet Take 5mg, 2.5mg, 2.5 mg and repeat, or as directed sildenafil (VIAGRA) 100 mg tablet warfarin (COUMADIN) 2 mg tablet Take 1 tablet by mouth once daily. Or as directed ADULT ASPIRIN 81 MG CHEWABLE TAB Take one(1) tablet daily. nystatin (MYCOSTATIN) 100,000 unit/mL suspension Take 5 mL by mouth four times daily. 1tsp swish in mouth for several minutes, then swallow (or expectorate) 4 times daily until gone. PHYSICAL EXAMINATION: VITAL SIGNS: BP 111/63 Pulse 77 Ht 6' 0 (1.83m) Wt 178 lb 3.2 oz (80.8kg) BMI 24.16 kg/(m2). Chest: Clear to auscultation. Trachea is midline. Air entry is equal. Cardiac: Regular rhythm. S1 and S2 are normal. PMI is nondisplaced. There is a soft systolic ejection murmur. Carotids are brisk without bruits. JVP is less than 10 cm. Abdomen: Soft and nontender. There are no pulsatile masses or bruits. No liver enlargement. Bowel sounds are active. Extremities: No edema. Pulses are intact and symmetrical. Recent lipids were reviewed. LDL was 41 Recent carotid Doppler shows mild progression of disease. Follow-up has been scheduled. Electronically Signed: Rosanna Oliveira MD February 02, 2018 8:54 AM CC: Stas Carter MD CNOV Observed: 02/02/2018 Status: COMPLETED Source: [place] 8:30 AM [facility] REPOSITORY Office Visit (CAWSTR) GERONIMO FLORES ([id number]) 1935 M Date Time Provider Department 02/02/18 8:30 AM ROSANNA OLIVEIRA CAWSTR During your visit today, we recorded the following information about you: Pulse Blood pressure Weight Height 77/minute 111/63 80.8 kg 1.829 m Rosanna Oliveira MD 02/02/2018 9:51 AM Signed PERTINENT CARDIAC HISTORY ASHD - PCI LAD 2002 HTN HL Carotid disease Syncope PAF ADHERENCE TO GUIDELINES MASTER-I or ARB for HF with prior LVEF<40 (NQF 0081) - N/A ASA or Plavix for ASHD (NQF 0067) - MET Beta jazmin for ASHD with prior CA or prior LVEF<40 (NQF 0070) - N/A Beta jazmin for HF with prior LVEF<40 (NQF 0083) - N/A MASTER-I or ARB for ASHD with DM or prior LVEF<40 (NQF 0066) - N/A Statin therapy for ASHD or FHL or DM - MET BMI documented and plan if >25 (NQF 0421) - lifestyle recommendation form Tobacco use screening and referral (NQF 0028) - lifestyle recommendation form Recommendation for whole food, plant based diet - lifestyle recommendation form CLINICAL IMPRESSION/PLAN: Geronimo Flores has stable ischemic heart disease. He's had no recurrent syncope. His blood pressure is still borderline low. I recommend that he decrease lisinopril to 10 milligrams daily and update me with vital signs in one to 2 weeks. His Lipitor will be decreased to 40 milligrams daily. I asked him to provide us copies of laboratory studies that are done at the [facility]. I recommend that he be seen again in cardiology to 8 months. If he has recurrent syncope, loop recorder will be recommended. Written and verbal health teaching given to patient, patient verbalizes understanding and agrees with treatment plan. DIAGNOSIS FOR VISIT: ASHD PAF HISTORY OF PRESENT ILLNESS Geronimo Flores returns for follow-up of multiple cardiac issues, as noted above. He reports stable exercise tolerance. He's had no chest discomfort. He's had no recurrent syncope. He has occasional lightheadedness when he stands suddenly. Blood pressures at home have the been as low as 100 systolic. He's had no orthopnea, edema, palpitations, TIAs, amaurosis. ALLERGIES: ALLERGIES No Known Allergies CURRENT OUTPATIENT MEDICATIONS: atorvastatin (LIPITOR) 80 mg tablet Take 1 tablet by mouth once daily. Fosinopril Sodium 40 mg tablet Take 1/2 tablet daily warfarin (COUMADIN) 2.5 mg tablet Take 5mg, 2.5mg, 2.5 mg and repeat, or as directed sildenafil (VIAGRA) 100 mg tablet warfarin (COUMADIN) 2 mg tablet Take 1 tablet by mouth once daily. Or as directed ADULT ASPIRIN 81 MG CHEWABLE TAB Take one(1) tablet daily. nystatin (MYCOSTATIN) 100,000 unit/mL suspension Take 5 mL by mouth four times daily. 1tsp swish in mouth for several minutes, then swallow (or expectorate) 4 times daily until gone. PHYSICAL EXAMINATION: VITAL SIGNS: BP 111/63 Pulse 77 Ht 6' 0 (1.83m) Wt 178 lb 3.2 oz (80.8kg) BMI 24.16 kg/(m2). Chest: Clear to auscultation. Trachea is midline. Air entry is equal. Cardiac: Regular rhythm. S1 and S2 are normal. PMI is nondisplaced. There is a soft systolic ejection murmur. Carotids are brisk without bruits. JVP is less than 10 cm. Abdomen: Soft and nontender. There are no pulsatile masses or bruits. No liver enlargement. Bowel sounds are active. Extremities: No edema. Pulses are intact and symmetrical. Recent lipids were reviewed. LDL was 41 Recent carotid Doppler shows mild progression of disease. Follow-up has been scheduled. Electronically Signed: Rosanna Oliveira MD February 02, 2018 8:54 AM CC: MD Rosanna Vasquez MD 02/02/2018 8:56 AM Signed LIFESTYLE CHANGE A healthy lifestyle is the most important component of your overall treatment plan. Please give serious thought to the following areas and commit to making medical terminologist changes. EAT A WHOLE FOOD, PLANT BASED DIET The nutrition your body gets is more important than the medicine you take. What matters most is the overall way you eat. We encourage you to minimize the use of animal products (which include dairy and all meats except fatty fish) and use whole, unprocessed plant foods to provide your protein, vitamins and other nutrients. We have a lot of information to share with you on this topic. This is not a diet. It is a way of life that you will keep with you. EXERCISE REGULARLY It is not important to spend hours in the gym, lifting weights and perspiring heavily. A total of 2-3 hours per week of aerobic (causing you to be moderately short of breath) exercise is sufficient to improve your health. Talk to us before you begin a new exercise program, if you have heart disease or experience shortness of breath or chest pain. REDUCE STRESS Chronic emotional and physical stress leads to disease. Ways of reducing stress include meditation, visualization, prayer, yoga and other forms of relaxation therapy. Consistency is the carpio. Find a technique that works for you and do it every day. CULTIVATE RELATIONSHIPS Loneliness and isolation have a major negative impact on health. Seek out others who can love, care for and nurture you. Avoid hurtful relationships. MAINTAIN IDEAL BODY WEIGHT The best way to do this is to do all the things above. Our bodies naturally find the right weight if we keep moving and feed ourselves the right food. If your BMI is greater than 25, we strongly recommend a referral to a weight management program. Please speak to us or your family physician about available programs. AVOID NICOTINE IN ALL FORMS This includes all tobacco products, whether chewed, smoked, vaped, or rubbed on the skin. Smoking cessation programs, which can make use of tobacco substitutes, medications to suppress cravings and behavior management, are available. Please contact your family physician about programs in your area. Referring Provider: ROSANNA OLIVEIRA [[id number]] Allergies As of Date: 02/02/2018 (No Known Allergies) Date Reviewed: 02/02/2018 Reviewed by: Esther Luna MA - Fully Assessed Reason for Visit: Established Patient [175] Cmt: ASHD/HTN Primary Visit Diagnosis:Hypertension, essential [I10] Other Visit Diagnosis:Atherosclerosis 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, unspecified vessel or lesion type, unspecified whether [place] or transplanted heart [I25.10] Order(s):atorvastatin (LIPITOR) 80 mg tabletTake 0.5 tablets by mouth once daily.Disp: 30 tabletRfl: 11 fosinopril (MONOPRIL) 10 mg tabletTake 1 tablet by mouth once daily.Disp: 90 tabletRfl: 3 Prescriptions as of 02/02/2018 Sig: ATORVASTATIN 80 MG TABLET Take 0.5 tablets by mouth onc* WARFARIN 2.5 MG TABLET Take 5mg, 2.5mg, 2.5 mg and r* SILDENAFIL 100 MG TABLET WARFARIN 2 MG TABLET Take 1 tablet by mouth once d* * ADULT ASPIRIN 81 MG CHEWABLE * Take one(1) tablet daily. FOSINOPRIL 10 MG TABLET Take 1 tablet by mouth once d* NYSTATIN 100,000 UNIT/ML ORAL* Take 5 mL by mouth four times* Patient not taking: Reported on 02/02/2018 Problem List As Of Date 02/02/2018 Noted Resolved BENIGN HYPERTENSION [I10] INVALID FOR* Coronary atherosclerosis [I25.10] INVALID FOR* 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 Please give serious thought to the following areas and commit to making correction changes. EAT A WHOLE FOOD, PLANT BASED DIET The nutrition your body gets is more important than the medicine you take. What matters most is the overall way you eat. We encourage you to minimize the use of animal products (which include dairy and all meats except fatty fish) and use whole, unprocessed plant foods to provide your protein, vitamins and other nutrients. We have a lot of information to share with you on this topic. This is not a diet. It is a way of life that you will keep with you. EXERCISE REGULARLY It is not important to spend hours in the gym, lifting weights and perspiring heavily. A total of 2-3 hours per week of aerobic (causing you to be moderately short of breath) exercise is sufficient to improve your health. Talk to us before you begin a new exercise program, if you have heart disease or experience shortness of breath or chest pain. REDUCE STRESS Chronic emotional and physical stress leads to disease. Ways of reducing stress include meditation, visualization, prayer, yoga and other forms of relaxation therapy. Consistency is the carpio. Find a technique that works for you and do it every day. CULTIVATE RELATIONSHIPS Loneliness and isolation have a major negative impact on health. Seek out others who can love, care for and nurture you. Avoid hurtful relationships. MAINTAIN IDEAL BODY WEIGHT The best way to do this is to do all the things above. Our bodies naturally find the right weight if we keep moving and feed ourselves the right food. If your BMI is greater than 25, we strongly recommend a referral to a weight management program. Please speak to us or your family physician about available programs. AVOID NICOTINE IN ALL FORMS This includes all tobacco products, whether chewed, smoked, vaped, or rubbed on the skin. Smoking cessation programs, which can make use of tobacco substitutes, medications to suppress cravings and behavior management, are available. Please contact your family physician about programs in your area. Prescriptions ordered this encounter Disp Refills Start End ATORVASTATIN 80 MG TABLET 30 t* 11 02/02/2018 Route: ORAL Sig: Take 0.5 tablets by mouth once daily. FOSINOPRIL 10 MG TABLET 90 t* 3 02/02/2018 02/02/2018 Route: ORAL Sig: Take 1 tablet by mouth once daily. FOSINOPRIL 10 MG TABLET 90 t* 3 02/02/2018 Class: Print RX Route: ORAL Sig: Take 1 tablet by mouth once daily. Medications Discontinued During This Encounter atorvastatin (LIPITOR) 80 mg tablet 30 t* 11 06/26/2017 02/02/2018 Route: ORAL Sig: Take 1 tablet by mouth once daily. Disc: Reason for discontinue is not on file. Fosinopril Sodium 40 mg tablet 06/02/2017 02/02/2018 Class: Med Update Sig: Take 1/2 tablet daily Disc: Reason for discontinue is not on file. fosinopril (MONOPRIL) 10 mg tablet 90 t* 3 02/02/2018 02/02/2018 Route: ORAL Sig: Take 1 tablet by mouth once daily. Disc: Reason for discontinue is not on file. Encounter Status:Closed by ROSANNA OLIVEIRA MD on 02/02/18 PROTHROMBIN TIME W/INR Collected: 01/12/2018 Status: F Source: [place] 9:00 AM [facility] REPOSITORY TYPE CODE TESTS RESULT OUT OF RANGE REFERENCE UNITS LAB L300.4150 11.7-14.9 SECONDS High PROTIME 26.5 LAB L300.4200 Normal INR 2.4 Performed By: #### L300.3900 #### [facility] [address] [place], [address] PROTIME Collected: 01/12/2018 Status: F Source: [place] 9:00 AM [facility] REPOSITORY TYPE CODE TESTS RESULT OUT OF REFERENCE UNITS RANGE LAB PSEC 9.7-13.0 sec Test PT sent to [facility]. Result Comment: Account Credited HIDE LAB INR 0.9-1.3 Test sent to PT INR [facility]. Result Comment: Account Credited HIDE PROTIME Collected: 12/22/2017 Status: F Source: [place] 8:50 AM [facility] REPOSITORY TYPE CODE TESTS RESULT OUT OF RANGE REFERENCE UNITS LAB PSEC 9.7-13.0 sec High PT Sec 23.4 LAB INR 0.9-1.3 High PT INR 2.4 Result Comment: Vitamin K Antagonist (VKA) Therapeutic Range: INR 2 to 3 (Target INR of 2.5) Note: For patients treated with VKA drugs, such as warfarin, the [place] [employer] 2012 Guideline recommends a therapeutic INR range of 2 to 3 (target INR of 2.5). This recommendation includes high-risk patients with antiphospholipid syndrome with previous arterial or venous thromboembolism, current-generation mechanical or bioprosthetic aortic heart valve replacement. Note: Patients with mechanical aortic valve replacement and additional risk factors for thromboembolic events (atrial fibrillation, previous thromboembolism, LV dysfunction, hypercoagulable conditions) or an older generation mechanical AVR (i.e., ball in-Cage) or any mechanical MVR should have a INR therapeutic range of 2.5 to 3.5 (target INR of 3). Domenicott GH, et al. Chest 2012, 141:7S-47S Avel RA, et al. [facility] 2017, 70: 252-289 Performed By: #### PT #### [facility] [address], [place] [address] PROGRESS Observed: 12/15/2017 Status: COMPLETED Source: [place] 8:52 AM [facility] REPOSITORY HNO ID: [id number] Author: Jemma Nuñez Service: (none) Author Type: Physician Pattern Marking Supervisor Type: Progress Notes Filed: 12/15/2017 9:13 AM Note Text: Chief Complaint Patient presents with: burning sensation in mouth x 2 weeks HPI Geronimo Flores is a 82 year old male who presents here today for Above Complaints.. For the past 2 weeks patient has noticed a burning sensation in corner of mouth and on tongue Denies sore throat Reports dry throat. Has dentures No recent antibiotic use, doesn't have steroid oral or nasal inhalers. Past medical history, appointments, medications, allergies reviewed. Previous Medical History PAST MEDICAL HISTORY Diagnosis Date - Coronary atherosclerosis of unspecified type of vessel, [place] or graft Coronary artery disease - Other and unspecified hyperlipidemia - Unspecified essential hypertension Essential hypertension Previous Surgical History PAST SURGICAL HISTORY Procedure Laterality Date - APPENDECTOMY - PERC TRANSL COR ANGIO 2005 last time Percutaneous Transluminal Coronary Angio Status 3 procedures Family History FAMILY HISTORY Problem Relation Age of Onset - Arthritis Mother - Alcohol/Drug Father - Stroke Father - Cancer Brother 50 Stomach cancer Patient Allergies ALLERGIES No Known Allergies Current Medications Current Outpatient Prescriptions on File Prior to Visit: atorvastatin (LIPITOR) 80 mg tablet Take 1 tablet by mouth once daily. Fosinopril Sodium 40 mg tablet Take 1/2 tablet daily warfarin (COUMADIN) 2.5 mg tablet Take 5mg, 2.5mg, 2.5 mg and repeat, or as directed sildenafil (VIAGRA) 100 mg tablet warfarin (COUMADIN) 2 mg tablet Take 1 tablet by mouth once daily. Or as directed ADULT ASPIRIN 81 MG CHEWABLE TAB Take one(1) tablet daily. No current facility-administered medications on file prior to visit. Social History Social History Marital status: Spouse name: Years of education: Number of children: 2 Social History Main Topics Smoking status: Former Smoker Packs/day: 0.00 Years: 0.00 Smokeless tobacco: Never Used Comment: 30 yaers ago Alcohol use: No Drug use: No Review of Symptoms REVIEW OF SYSTEMS See HPI EXAM: BP 142/62 (BP Site: Right Arm, BP Position: Sitting, BP Cuff Size: Regular Adult) Pulse 78 Temp 36.6 ?C (97.8 ?F) Resp 12 Ht 182.9 cm (6') Wt 79.8 kg (176 lb) SpO2 98% BMI 23.87 kg/m? General Appearance: Well appearing, alert, in no acute distress, well-hydrated, well nourished.. Nose/Sinuses: Nares normal, septum midline, mucosa normal, no drainage or sinus tenderness. Oropharynx: erythema noted in corners of mouth. No yellow crusting. No blister. No erythema of posterior pharynx. No white patches. Lungs: Lungs clear to auscultation. No wheezing, rhonchi, rales. Heart: RRR without murmur, gallop, or rubs. No ectopy. Health Maintenance List ADULT PREVNAR-13 due on 08/12/2000 DTAP,TDAP,TD(1 - Tdap) due on 02/23/2008 INFLUENZA(1) due on 11/21/2017 LDL CHOLESTEROL due on 08/26/2018 DIABETES SCREEN due on 06/15/2020 LIPID SCREEN due on 08/26/2022 PNEUMOVAX AGE 65 AND OVER WITH 5YR LOOKBACK Completed Data reviewed n/a ASSESSMENT/PLAN: 1. Angular cheilitis - ICD9: 528.5, ICD10: K13.0 Use the lotrimin cream and nystatin swish for about 2 weeks. Discussed good oral and denture hygiene. Follow up in 2 weeks if no improvement. Discussed possible red flags and when to seek medical attention. PERICO DEL REAL Observed: 12/15/2017 Status: COMPLETED Source: [place] 8:40 AM [facility] REPOSITORY Office Visit (FAMPWS) GERONIMO FLORES ([id number]) 1935 M Date Time Provider Department 12/15/17 8:40 AM DAYRON NUÑEZ) FAMPWS During your visit today, we recorded the following information about you: Temperature Pulse Respiration Blood pressure 97.8 degrees 78/minute 12/minute 132/62 Weight Height 79.8 kg 1.829 m RORO NUÑEZ PA-C 12/15/2017 9:13 AM Signed Chief Complaint Patient presents with: burning sensation in mouth x 2 weeks HPI Geronimo Flores is a 82 year old male who presents here today for Above Complaints.. For the past 2 weeks patient has noticed a burning sensation in corner of mouth and on tongue Denies sore throat Reports dry throat. Has dentures No recent antibiotic use, doesn't have steroid oral or nasal inhalers. Past medical history, appointments, medications, allergies reviewed. Previous Medical History PAST MEDICAL HISTORY Diagnosis Date - Coronary atherosclerosis of unspecified type of vessel, [place] or graft Coronary artery disease - Other and unspecified hyperlipidemia - Unspecified essential hypertension Essential hypertension Previous Surgical History PAST SURGICAL HISTORY Procedure Laterality Date - APPENDECTOMY - PERC TRANSL COR ANGIO 2005 last time Percutaneous Transluminal Coronary Angio Status 3 procedures Family History FAMILY HISTORY Problem Relation Age of Onset - Arthritis Mother - Alcohol/Drug Father - Stroke Father - Cancer Brother 50 Stomach cancer Patient Allergies ALLERGIES No Known Allergies Current Medications Current Outpatient Prescriptions on File Prior to Visit: atorvastatin (LIPITOR) 80 mg tablet Take 1 tablet by mouth once daily. Fosinopril Sodium 40 mg tablet Take 1/2 tablet daily warfarin (COUMADIN) 2.5 mg tablet Take 5mg, 2.5mg, 2.5 mg and repeat, or as directed sildenafil (VIAGRA) 100 mg tablet warfarin (COUMADIN) 2 mg tablet Take 1 tablet by mouth once daily. Or as directed ADULT ASPIRIN 81 MG CHEWABLE TAB Take one(1) tablet daily. No current facility-administered medications on file prior to visit. Social History Social History Marital status: Spouse name: Years of education: Number of children: 2 Social History Main Topics Smoking status: Former Smoker Packs/day: 0.00 Years: 0.00 Smokeless tobacco: Never Used Comment: 30 yaers ago Alcohol use: No Drug use: No Review of Symptoms REVIEW OF SYSTEMS See HPI EXAM: BP 142/62 (BP Site: Right Arm, BP Position: Sitting, BP Cuff Size: Regular Adult) Pulse 78 Temp 36.6 ?C (97.8 ?F) Resp 12 Ht 182.9 cm (6') Wt 79.8 kg (176 lb) SpO2 98% BMI 23.87 kg/m? General Appearance: Well appearing, alert, in no acute distress, well-hydrated, well nourished.. Nose/Sinuses: Nares normal, septum midline, mucosa normal, no drainage or sinus tenderness. Oropharynx: erythema noted in corners of mouth. No yellow crusting. No blister. No erythema of posterior pharynx. No white patches. Lungs: Lungs clear to auscultation. No wheezing, rhonchi, rales. Heart: RRR without murmur, gallop, or rubs. No ectopy. Health Maintenance List ADULT PREVNAR-13 due on 08/12/2000 DTAP,TDAP,TD(1 - Tdap) due on 02/23/2008 INFLUENZA(1) due on 11/21/2017 LDL CHOLESTEROL due on 08/26/2018 DIABETES SCREEN due on 06/15/2020 LIPID SCREEN due on 08/26/2022 PNEUMOVAX AGE 65 AND OVER WITH 5YR LOOKBACK Completed Data reviewed n/a ASSESSMENT/PLAN: 1. Angular cheilitis - ICD9: 528.5, ICD10: K13.0 Use the lotrimin cream and nystatin swish for about 2 weeks. Discussed good oral and denture hygiene. Follow up in 2 weeks if no improvement. Discussed possible red flags and when to seek medical attention. RORO NUÑEZ PA-C Referring Provider: SELF [[id number]] Allergies As of Date: 12/15/2017 (No Known Allergies) Date Reviewed: 12/15/2017 Reviewed by: Franca Cohen LPN - Fully Assessed Reason for Visit: burning sensation in mouth x 2 weeks [Other] Primary Visit Diagnosis:Angular cheilitis [K13.0] Order(s):nystatin (MYCOSTATIN) 100,000 unit/mL suspensionTake 5 mL by mouth four times daily. 1tsp swish in mouth for several minutes, then swallow (or expectorate) 4 times daily until gone.Disp: 200 mLRfl: 0 clotrimazole (LOTRIMIN, CLOTRIM) 1 % creamApply 1 application to affected area twice daily for 14 days.Disp: 30 gRfl: 1 Prescriptions as of 12/15/2017 Sig: ATORVASTATIN 80 MG TABLET Take 1 tablet by mouth once d* FOSINOPRIL 40 MG TABLET Take 1/2 tablet daily WARFARIN 2.5 MG TABLET Take 5mg, 2.5mg, 2.5 mg and r* SILDENAFIL 100 MG TABLET WARFARIN 2 MG TABLET Take 1 tablet by mouth once d* * ADULT ASPIRIN 81 MG CHEWABLE * Take one(1) tablet daily. NYSTATIN 100,000 UNIT/ML ORAL* Take 5 mL by mouth four times* CLOTRIMAZOLE 1 % TOPICAL CREAM Apply 1 application to affect* Problem List As Of Date 12/15/2017 Noted Resolved BENIGN HYPERTENSION [I10] INVALID FOR* Coronary atherosclerosis [I25.10] INVALID FOR* 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 1tsp swish in mouth for several minutes, then swallow (or expectorate) 4 times daily until gone. CLOTRIMAZOLE 1 % TOPICAL CREAM 30 g 1 12/15/2017 12/29/2017 Route: TOPICAL Sig: Apply 1 application to affected area twice daily for 14 days. Encounter Status:Closed by RORO PALMA on 12/15/17 PROTIME Collected: 12/01/2017 Status: F Source: [place] 9:02 AM [facility] REPOSITORY TYPE CODE TESTS RESULT OUT OF RANGE REFERENCE UNITS LAB PSEC 9.7-13.0 sec High PT Sec 20.2 LAB INR 0.9-1.3 High PT INR 2.0 Result Comment: Vitamin K Antagonist (VKA) Therapeutic Range: INR 2 to 3 (Target INR of 2.5) Note: For patients treated with VKA drugs, such as warfarin, the [place] [employer] 2012 Guideline recommends a therapeutic INR range of 2 to 3 (target INR of 2.5). This recommendation includes high-risk patients with antiphospholipid syndrome with previous arterial or venous thromboembolism, current-generation mechanical or bioprosthetic aortic heart valve replacement. Note: Patients with mechanical aortic valve replacement and additional risk factors for thromboembolic events (atrial fibrillation, previous thromboembolism, LV dysfunction, hypercoagulable conditions) or an older generation mechanical AVR (i.e., ball in-Cage) or any mechanical MVR should have a INR therapeutic range of 2.5 to 3.5 (target INR of 3). Sade PALOMARES, et al. Chest 2012, 141:7S-47S Avel RA, et al. [facility] 2017, 70: 252-289 Performed By: #### PT #### [facility] [address] [place], [place] [address] PROTHROMBIN TIME W/INR Collected: 11/17/2017 Status: F Source: [place] 8:56 AM [facility] REPOSITORY TYPE CODE TESTS RESULT OUT OF RANGE REFERENCE UNITS LAB L300.4150 11.7-14.9 SECONDS High PROTIME 25.8 LAB L300.4200 Normal INR 2.3 Performed By: #### L300.3900 #### [facility] [address] [place], [place], [id number] PROTIME Collected: 11/17/2017 Status: F Source: [place] 8:56 AM [facility] REPOSITORY TYPE CODE TESTS RESULT OUT OF REFERENCE UNITS RANGE LAB PSEC 9.7-13.0 sec Test PT sent to [facility]. Result Comment: Account Credited HIDE LAB INR 0.9-1.3 Test sent to PT INR [facility]. Result Comment: Account Credited HIDE PROTIME Collected: 11/03/2017 Status: F Source: [place] 8:24 AM [facility] REPOSITORY TYPE CODE TESTS RESULT OUT OF REFERENCE UNITS RANGE LAB PSEC 9.7-13.0 sec Test PT sent to [facility]. Result Comment: Account Credited HIDE LAB INR 0.9-1.3 Test sent to PT INR [facility]. Result Comment: Account Credited HIDE PROTHROMBIN TIME W/INR Collected: 11/03/2017 Status: F Source: [place] 8:22 AM [facility] REPOSITORY TYPE CODE TESTS RESULT OUT OF RANGE REFERENCE UNITS LAB L300.4150 11.7-14.9 SECONDS High PROTIME 25.8 LAB L300.4200 Normal INR 2.3 Performed By: #### L300.3900 #### [facility] [address] [place], [place], [address] PROTHROMBIN TIME W/INR Collected: 10/27/2017 Status: F Source: [place] 7:45 AM [facility] REPOSITORY TYPE CODE TESTS RESULT OUT OF RANGE REFERENCE UNITS LAB L300.4150 11.7-14.9 SECONDS High PROTIME 24.3 LAB L300.4200 Normal INR 2.2 Performed By: #### L300.3900 #### [facility] [address] [place], [address] PROTIME Collected: 10/27/2017 Status: F Source: [place] 7:33 AM [facility] REPOSITORY TYPE CODE TESTS RESULT OUT OF REFERENCE UNITS RANGE LAB PSEC 9.7-13.0 sec Test PT sent to [facility]. Result Comment: Account Credited HIDE LAB INR 0.9-1.3 Test sent to PT INR [facility]. Result Comment: Account Credited HIDE PROTIME Collected: 10/20/2017 Status: F Source: [place] 8:35 AM [facility] REPOSITORY TYPE CODE TESTS RESULT OUT OF REFERENCE UNITS RANGE LAB PSEC 9.7-13.0 sec Test PT sent to [facility]. Result Comment: Account Credited HIDE LAB INR 0.9-1.3 Test sent to PT INR [facility]. Result Comment: Account Credited HIDE PROTHROMBIN TIME W/INR Collected: 10/20/2017 Status: F Source: [place] 12:00 AM [facility] REPOSITORY TYPE CODE TESTS RESULT OUT OF RANGE REFERENCE UNITS LAB L300.4150 11.7-14.9 SECONDS Normal PROTIME 12.1 LAB L300.4200 Normal INR 0.9 Performed By: #### L300.3900 #### [facility] [address] [place], [address] PROTIME Collected: 10/13/2017 Status: F Source: [place] 8:45 AM [facility] REPOSITORY TYPE CODE TESTS RESULT OUT OF REFERENCE UNITS RANGE LAB PSEC 9.7-13.0 sec Test PT sent to [facility]. Result Comment: Account Credited HIDE LAB INR 0.9-1.3 Test sent to PT INR [facility]. Result Comment: Account Credited HIDE PROTHROMBIN TIME W/INR Collected: 10/13/2017 Status: F Source: [place] 12:00 AM [facility] REPOSITORY TYPE CODE TESTS RESULT OUT OF RANGE REFERENCE UNITS LAB L300.4150 11.7-14.9 SECONDS High PROTIME 25.2 LAB L300.4200 Normal INR 2.3 Performed By: #### L300.3900 #### [facility] [address] [place], [address] EMERGENCY DEPARTMENT Observed: 10/06/2017 Status: F Source: [place] SUMMARY 11:57 PM [facility] REPOSITORY [facility] Medical Records Department [address] [place] [address] Emergency Department Summary 10/06/17 1603 MR#: [id number] Acct: [id number] Name: GERONIMO FLORES Rep #: [id number] : 1935 82 From: Kristian Gillespie MD PCP: Stas Carter MD Status: DEP ER - ER Visit Summary Date of Service: 10/06/17 Chief Complaint: Atraumatic right lower leg swelling History of Present Illness: The patient is a 82 M currently on Coumadin for A. fib. The last 2+ days he had atraumatic right lower leg and foot swelling. No prior history. No prior blood clot. No recent travel, immobilization or hospitalization. No recent surgery. He denies any pain. No trouble walking on it. He Physical Examination: Well-appearing older male. Vital signs are stable afebrile. Accompanied by his . H EENT exam unremarkable. Neck nontender. Lungs clear to auscultation bilaterally. Heart regular rhythm no murmur. Abdomen soft nontender. Moving all 4 extremities. Neurovascular intact. He is trace edema and is very lower right lower leg and lateral foot. DP pulses intact. The foot is completely nontender. There is no bony deformities or tenderness. No redness or warmth. No signs of trauma. He is able to wiggle his toes. His normal touch sensation. Calf is nontender without cords. Neurologically is awake and alert. 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 Noninvasive study of his right lower extremity no DVT per the shoemaker custom. Emergency Department Course and Treatment: Repeat exam patient doing well at 1630. They are comfortable being discharged home. He is having no pain and is fine with no x-ray being obtained at this time. He will elevate his leg if this does not improve he will follow-up. He was instructed his INR was slightly subtherapeutic at 1.7 and was instructed to take an extra dose this evening. Treatment Plan: Follow-up with his primary care physician if not improving. Disposition: Discharge Impression: Acute right lower leg and foot mild swelling and edema secondary to venous insufficiency Subtherapeutic INR 1.7 This note was generated with [employer] dictation software. It may contain incorrect words, spelling, and punctuation that were not noted in review of the chart prior to signing ED Disposition - Plan for ED Patient: Chief Complaint: Edema Referrals: Stas Carter MD [Primary Care Provider] - What to do if you have Problems For any increased pain, shortness of breath, bleeding, nausea or vomiting, chest pain, or any unexpected problems, contact your Primary Care Provider. Call [facility] ([phone]) or report to the closest Emergency Room. Call 911 if necessary. 10/06/17 8847 <Electronically signed by Kristian Gillespie MD> Date Kristian Gillespie MD Cosigner Signature (If Indicated): Date CC: Stas Carter MD DISCHARGE INSTRUCTION Observed: 10/06/2017 Status: F Source: [place] 11:57 PM [facility] REPOSITORY [facility] Medical Records Department [address] [place] [address] Discharge Instruction 10/06/17 1634 MR#: [id number] Acct: [id number] Name: GERONIMO FLORES Rep #: [id number] : 1935 82 From: Kristian Gillespie MD PCP: Stas Carter MD Status: [facility] ER ED Disposition - Plan for ED Patient: Disposition: Home or Assisted Living Chief Complaint: Edema Instructions: ED Leg Swelling Unilateral Referrals: Stas Carter MD [Primary Care Provider] - 1 Week if not improving Additional Instructions: Your warfarin level was subtherapeutic today at 1.7. You may want to take an extra 2 mg p.o. this evening. And then take your normal dose tomorrow. Follow-up with your doctor if the swelling does not resolve or gets worse. What to do if you have Problems For any increased pain, shortness of breath, bleeding, nausea or vomiting, chest pain, or any unexpected problems, contact your Primary Care Provider. Call [facility] ([phone]) or report to the closest Emergency Room. Call 911 if necessary. 10/06/17 0349 <Electronically signed by Kristian Gillespie MD> Date Kristian Gillespie MD Cosigner Signature (If Indicated): Date CC: Stas Carter MD VENOUS DUPLEX LOWER Observed: 10/06/2017 Status: F Source: [place] EXTREMITY 4:58 PM [facility] REPOSITORY [facility] Cardiovascular Services [address] [place] [address] Venous Duplex US, Unilateral 10/06/17 1609 MR#: [id number] Acct: [id number] Name: GERONIMO FLORES Rep #: [id number] : 1935 82 From: Levi Roberts MD Attending Dr: Status: DEP ER Ordering Dr: Kristian Gillespie MD Date: 10/06/17 Location: ED Sex: M C Admitted: Reason For Study: swelling RIGHT LEFT GSV is normal. CFV is compressible, spontaneous, phasic, CFV is compressible, spontaneous, phasic, competent, and demonstrates normal competent and demonstrates normal augmentation. augmentation. FV is compressible, spontaneous, phasic, competent and demonstrates normal augmentation. POP V is compressible, spontaneous, phasic, competent and demonstrates normal augmentation. T/P Trunk is compressible. PTV is compressible. RT PerV is compressible. Procedure Exam performed portable in ED. The exam was diagnostic. A preliminary report was called and/or faxed to Dr. Gillespie. Interpretation Summary Deep veins of the right lower extremity are patent and compressible segmentally. There is no evidence of right lower extremity deep vein thrombosis. Valvular competence appears intact within the proximal deep venous system on the right . The right greater saphenous vein appears patent and compressible segmentally. Ordering Physician: Kristian Gillespie Performed By: uCauhtemoc Chapin RVT 10/06/171657 Date Levi Roberts MD CC: Kristian Gillespie MD; Stas Carter MD Date Dictated: 10/06/17 1609 Date Transcribed: 10/06/171657 Correction Officer: Signed PROTIME Collected: 10/06/2017 Status: F Source: [place] 8:49 AM [facility] [place] REPOSITORY TYPE CODE TESTS RESULT OUT OF RANGE REFERENCE UNITS LAB PSEC 9.7-13.0 sec High PT Sec 17.3 LAB INR 0.9-1.3 High PT INR 1.7 Result Comment: Vitamin K Antagonist (VKA) Therapeutic Range: INR 2 to 3 (Target INR of 2.5) Note: For patients treated with VKA drugs, such as warfarin, the [place] [employer] 2012 Guideline recommends a therapeutic INR range of 2 to 3 (target INR of 2.5). This recommendation includes high-risk patients with antiphospholipid syndrome with previous arterial or venous thromboembolism, current-generation mechanical or bioprosthetic aortic heart valve replacement. Note: Patients with mechanical aortic valve replacement and additional risk factors for thromboembolic events (atrial fibrillation, previous thromboembolism, LV dysfunction, hypercoagulable conditions) or an older generation mechanical AVR (i.e., ball in-Cage) or any mechanical MVR should have a INR therapeutic range of 2.5 to 3.5 (target INR of 3). Sade GH, et al. Chest 2012, 141:7S-47S Avel RA et al. [facility] 2017, 70: 252-289 Performed By: #### PT #### [facility] [address] [place], [place] [address] PROTHROMBIN TIME W/INR Collected: 09/22/2017 Status: F Source: [place] 9:25 AM [facility] REPOSITORY TYPE CODE TESTS RESULT OUT OF RANGE REFERENCE UNITS LAB L300.4150 11.7-14.9 SECONDS High PROTIME 23.0 LAB L300.4200 Normal INR 2.0 Performed By: #### L300.3900 #### [facility] [address] [place], [address] PROTIME Collected: 09/22/2017 Status: F Source: [place] 9:25 AM [facility] REPOSITORY TYPE CODE TESTS RESULT OUT OF REFERENCE UNITS RANGE LAB PSEC 9.7-13.0 sec Test PT sent to [facility]. Result Comment: Account Credited HIDE LAB INR 0.9-1.3 Test sent to PT INR [facility]. Result Comment: Account Credited HIDE PROTIME Collected: 09/15/2017 Status: F Source: [place] 8:35 AM [facility] REPOSITORY TYPE CODE TESTS RESULT OUT OF RANGE REFERENCE UNITS LAB PSEC 9.7-13.0 sec High PT Sec 17.5 LAB INR 0.9-1.3 High PT INR 1.8 Result Comment: Vitamin K Antagonist (VKA) Therapeutic Range: INR 2 to 3 (Target INR of 2.5) Note: For patients treated with VKA drugs, such as warfarin, the [place] [employer] 2012 Guideline recommends a therapeutic INR range of 2 to 3 (target INR of 2.5). This recommendation includes high-risk patients with antiphospholipid syndrome with previous arterial or venous thromboembolism, current-generation mechanical or bioprosthetic aortic heart valve replacement. Note: Patients with mechanical aortic valve replacement and additional risk factors for thromboembolic events (atrial fibrillation, previous thromboembolism, LV dysfunction, hypercoagulable conditions) or an older generation mechanical AVR (i.e., ball in-Cage) or any mechanical MVR should have a INR therapeutic range of 2.5 to 3.5 (target INR of 3). Sade GH, et al. Chest 2012, 141:7S-47S Avel RA, et al. [facility] 2017, 70: 252-289 Performed By: #### PT #### [facility] [address] [place], [place] [address] DOWNTIME REPORT Observed: 09/10/2017 Status: F Source: [place] 1:52 PM [facility] REPOSITORY [facility] Medical Records Department [address] [place] [address] Downtime Report MR#: [id number] Acct: [id number] Name: GERONIMO FLORES E Rep #: [id number] : 1935 82 From: John Martinez PCP: Stas Carter MD Status: REG CLI This patient was seen during an EMR downtime August 24, 2017 - August 31, 2017. This patient may have a combination of paper and electronic documentation or all paper documentation. All documentation is viewable within the e-chart portion of [employer] for each patient visit. DOWNTIME REPORT Observed: 09/10/2017 Status: F Source: [place] 1:38 PM [facility] REPOSITORY [facility] Medical Records Department [address] [place] [address] Downtime Report MR#: [id number] Acct: [id number] Name: GERONIMO FLORES E Rep #: [id number] : 1935 82 From: John Martinez PCP: Status: REG CLI This patient was seen during an EMR downtime August 24, 2017 - August 31, 2017. This patient may have a combination of paper and electronic documentation or all paper documentation. All documentation is viewable within the e-chart portion of [employer] for each patient visit. PROTHROMBIN TIME W/INR Collected: 09/08/2017 Status: F Source: [place] 9:14 AM [facility] REPOSITORY TYPE CODE TESTS RESULT OUT OF RANGE REFERENCE UNITS LAB L300.4150 11.7-14.9 SECONDS High PROTIME 24.3 LAB L300.4200 Normal INR 2.2 Performed By: #### L300.3900 #### [facility] [address] [place], [address] PROTIME Collected: 09/08/2017 Status: F Source: [place] 8:31 AM [facility] REPOSITORY TYPE CODE TESTS RESULT OUT OF REFERENCE UNITS RANGE LAB PSEC 9.7-13.0 sec Test PT sent to [facility]. Result Comment: Account Credited HIDE LAB INR 0.9-1.3 Test sent to PT INR [facility]. Result Comment: Account Credited HIDE CPK TOTAL, CREATINE Collected: 08/26/2017 Status: F Source: [place] KINASE 8:58 AM [facility] REPOSITORY Order Comment: RESULT(S) PREVIOUSLY REPORTED ON MANUAL REQUISITION DURING DOWNTIME. TYPE CODE TESTS RESULT OUT OF RANGE REFERENCE UNITS LAB L501.3620 39-308 U/L Normal CPK TOTAL 135 Performed By: #### L501.3620, L501.4405, L500.4100 #### [facility] [address] [place], [address] ALANINE AMINOTRANSFERAS Collected: 08/26/2017 Status: F Source: [place] (SGPT) 8:58 AM [facility] REPOSITORY Order Comment: RESULT(S) PREVIOUSLY REPORTED ON MANUAL REQUISITION DURING DOWNTIME. TYPE CODE TESTS RESULT OUT OF RANGE REFERENCE UNITS LAB L501.4405 16-61 U/L Normal ALT 38 Performed By: #### L501.3620, L501.4405, L500.4100 #### [facility] [address] [place], [address] LIPID PROFILE Collected: 08/26/2017 Status: F Source: [place] 8:58 AM [facility] REPOSITORY Order Comment: RESULT(S) PREVIOUSLY REPORTED ON MANUAL REQUISITION DURING DOWNTIME. TYPE CODE TESTS RESULT OUT OF RANGE REFERENCE UNITS LAB L501.4900 200 mg/dL Normal CHOL 88 Result Comment: <200 mg/dL Desirable 200-240 mg/dL Borderline >240 mg/dL High Risk LAB L501.5000 mg/dL Normal TRIG 54 Result Comment: The drugs N-Acetylcysteine and Metamizole may falsely depress this assay. Serum Triglycerides Reference Interval Normal <150 mg/dL Borderline high 150 - 199 mg/dL High 200 - 499 mg/dL Very High > or = 500 mg/dL LAB L501.6400 mg/dL Low HDL 36 Result Comment: The drugs N-Acetylcysteine and Metamizole may falsely depress this assay. Reference Range HDL <40 mg/dL Low HDL Cholesterol HDL >or= 60 mg/dL High HDL Cholesterol LAB L501.6500 0-130 mg/dL Normal LDL 41 LAB L501.6600 5-40 mg/dL Normal VLDL 11 Performed By: #### L501.3620, L501.4405, L500.4100 #### [facility] [address] [place], [address] ALT Collected: 08/26/2017 Status: F Source: [place] 8:57 AM [facility] REPOSITORY TYPE CODE TESTS RESULT OUT OF REFERENCE UNITS RANGE LAB ALT 10-54 U/L Test ALT sent to [facility]. Result Comment: Account Credited KAYLARadha CK Collected: 08/26/2017 Status: F Source: [facility] 8:57 AM [facility] REPOSITORY TYPE CODE TESTS RESULT OUT OF REFERENCE UNITS RANGE LAB CK 51-298 U/L Test CK sent to [facility]. Result Comment: Account Credited ARINA LIPID PANEL, BASIC Collected: 08/26/2017 Status: F Source: [place] 8:57 AM [facility] REPOSITORY TYPE CODE TESTS RESULT OUT OF REFERENCE UNITS RANGE LAB CHOL <200 mg/dL Cholesterol Test sent to [facility]. Result Comment: Account Credited KAYLARadha LAB TRIGLY <150 mg/dL Triglyceride Test sent to [facility]. Result Comment: Account Credited KAYLARadha LAB HDL >39 mg/dL HDL-Cholesterol Test sent to [facility]. Result Comment: Account Credited KAYLARadha LAB LDL <100 mg/dL LDL-Cholesterol Test sent to [facility]. Result Comment: Account Credited KAYLARadha LAB NONHDL 90-159 mg/dL Non HDL Test Cholesterol sent to [facility]. Result Comment: Account Credited ARINA LAB FT hrs Fasting Time 12 LAB VLDL <30 mg/dL VLDL Cholesterol Test sent to [facility]. Result Comment: Account Credited HIDRadha LAB TCHDL <5.10 Test sent TC:HDL Ratio to [facility]. Result Comment: Account Credited ARINA LAB LDLHDL <2.54 Test sent LDL:HDL Ratio to [facility]. Result Comment: Account Credited KAYLAE PROTHROMBIN TIME W/INR Collected: 08/25/2017 Status: F Source: [place] 9:00 [facility] Order Comment: RESULT(S) PREVIOUSLY REPORTED ON MANUAL REQUISITION DURING DOWNTIME. TYPE CODE TESTS RESULT OUT OF RANGE REFERENCE UNITS LAB L300.4150 11.7-14.9 SECONDS High PROTIME 26.1 LAB L300.4200 Normal INR 2.4 Performed By: #### L300.3900 #### [facility] [address] [place], [address] PROTIME Collected: 08/25/2017 Status: F Source: [place] 9:00 AM [facility] REPOSITORY TYPE CODE TESTS RESULT OUT OF REFERENCE UNITS RANGE LAB PSEC 9.7-13.0 sec Test PT sent to [facility]. Result Comment: Account Credited KAYLAE LAB INR 0.9-1.3 Test sent to PT INR [facility]. Result Comment: Account Credited ARINA PROTIME Collected: 08/18/2017 Status: F Source: [place] 8:50 AM [facility] REPOSITORY TYPE CODE TESTS RESULT OUT OF RANGE REFERENCE UNITS LAB PSEC 9.7-13.0 sec High PT Sec 34.0 LAB INR 0.9-1.3 High PT INR 3.6 Result Comment: Vitamin K Antagonist (VKA) Therapeutic Range: INR 2 to 3 (Target INR of 2.5) Note: For patients treated with VKA drugs, such as warfarin, the [place] [employer] 2012 Guideline recommends a therapeutic INR range of 2 to 3 (target INR of 2.5). This recommendation includes high-risk patients with antiphospholipid syndrome with previous arterial or venous thromboembolism, current-generation mechanical or bioprosthetic aortic heart valve replacement. Note: Patients with mechanical aortic valve replacement and additional risk factors for thromboembolic events (atrial fibrillation, previous thromboembolism, LV dysfunction, hypercoagulable conditions) or an older generation mechanical AVR (i.e., ball in-Cage) or any mechanical MVR should have a INR therapeutic range of 2.5 to 3.5 (target INR of 3). Sade GH, et al. Chest 2012, 141:7S-47S Avel RA, et al. [facility] 2017, 70: 252-289 Performed By: #### PT #### [facility] [address] [place], [place] [address] PROTIME Collected: 08/11/2017 Status: F Source: [place] 8:33 AM [facility] REPOSITORY TYPE CODE TESTS RESULT OUT OF REFERENCE UNITS RANGE LAB PSEC 9.7-13.0 sec Test PT sent to [facility]. Result Comment: Account Credited HIDE LAB INR 0.9-1.3 Test sent to PT INR [facility]. Result Comment: Account Credited HIDE PROTHROMBIN TIME W/INR Collected: 08/11/2017 Status: F Source: [place] 8:31 AM [facility] REPOSITORY TYPE CODE TESTS RESULT OUT OF RANGE REFERENCE UNITS LAB L300.4150 11.7-14.9 SECONDS High PROTIME 32.5 LAB L300.4200 Normal INR 3.1 Performed By: #### L300.3900 #### [facility] [address] [place], [address] PROTIME Collected: 08/04/2017 Status: F Source: [place] 8:18 AM [facility] REPOSITORY TYPE CODE TESTS RESULT OUT OF RANGE REFERENCE UNITS LAB PSEC 9.7-13.0 sec High PT Sec 13.9 LAB INR 0.9-1.3 High PT INR 1.4 Result Comment: Vitamin K Antagonist (VKA) Therapeutic Range: INR 2 to 3 (Target INR of 2.5) Note: For patients treated with VKA drugs, such as warfarin, the [place] [employer] 2012 Guideline recommends a therapeutic INR range of 2 to 3 (target INR of 2.5). This recommendation includes high-risk patients with antiphospholipid syndrome with previous arterial or venous thromboembolism, current-generation mechanical or bioprosthetic aortic heart valve replacement. Note: Patients with mechanical aortic valve replacement and additional risk factors for thromboembolic events (atrial fibrillation, previous thromboembolism, LV dysfunction, hypercoagulable conditions) or an older generation mechanical AVR (i.e., ball in-Cage) or any mechanical MVR should have a INR therapeutic range of 2.5 to 3.5 (target INR of 3). Sade PALOMARES, et al. Chest 2012, 141:7S-47S Avel CARDONA et al. [facility] 2017, 70: 252-289 Performed By: #### PT #### [facility] [address] [place], [place] [address] PROTIME Collected: 07/28/2017 Status: F Source: [place] 9:10 AM [facility] REPOSITORY TYPE CODE TESTS RESULT OUT OF RANGE REFERENCE UNITS LAB PSEC 9.7-13.0 sec High PT Sec 38.2 LAB INR 0.9-1.3 High PT INR 4.0 Result Comment: Vitamin K Antagonist (VKA) Therapeutic Range: INR 2 to 3 (Target INR of 2.5) Note: For patients treated with VKA drugs, such as warfarin, the [place] [employer] 2012 Guideline recommends a therapeutic INR range of 2 to 3 (target INR of 2.5). This recommendation includes high-risk patients with antiphospholipid syndrome with previous arterial or venous thromboembolism, current-generation mechanical or bioprosthetic aortic heart valve replacement. Note: Patients with mechanical aortic valve replacement and additional risk factors for thromboembolic events (atrial fibrillation, previous thromboembolism, LV dysfunction, hypercoagulable conditions) or an older generation mechanical AVR (i.e., ball in-Cage) or any mechanical MVR should have a INR therapeutic range of 2.5 to 3.5 (target INR of 3). Sade PALOMARES, et al. Chest 2012, 141:7S-47S Avel CARDONA et al. [facility] 2017, 70: 252-289 Performed By: #### PT #### [facility] [address] [place], [place] [address] PROTIME Collected: 07/14/2017 Status: F Source: [place] 8:10 AM [facility] REPOSITORY TYPE CODE TESTS RESULT OUT OF RANGE REFERENCE UNITS LAB PSEC 9.7-13.0 sec High PT Sec 24.0 LAB INR 0.9-1.3 High PT INR 2.5 Result Comment: Vitamin K Antagonist (VKA) Therapeutic Range: INR 2 to 3 (Target INR of 2.5) Note: For patients treated with VKA drugs, such as warfarin, the [employer] [employer] 2012 Guideline recommends a therapeutic INR range of 2 to 3 (target INR of 2.5). This recommendation includes high-risk patients with antiphospholipid syndrome with previous arterial or venous thromboembolism, current-generation mechanical or bioprosthetic aortic heart valve replacement. Note: Patients with mechanical aortic valve replacement and additional risk factors for thromboembolic events (atrial fibrillation, previous thromboembolism, LV dysfunction, hypercoagulable conditions) or an older generation mechanical AVR (i.e., ball in-Cage) or any mechanical MVR should have a INR therapeutic range of 2.5 to 3.5 (target INR of 3). Sade PALOMARES et kindra. Chest 2012, 141:7S-47S Avel CARDONA et kindra. [facility] 2017, 70: 252-289 Performed By: #### PT #### [facility] [address] [place], [place] [address] PROTIME Collected: 07/07/2017 Status: F Source: [place] 8:06 AM [facility] REPOSITORY TYPE CODE TESTS RESULT OUT OF RANGE REFERENCE UNITS LAB PSEC 9.7-13.0 sec High PT Sec 17.4 LAB INR 0.9-1.3 High PT INR 1.7 Result Comment: Vitamin K Antagonist (VKA) Therapeutic Range: INR 2 to 3 (Target INR of 2.5) Note: For patients treated with VKA drugs, such as warfarin, the [place] [employer] 2012 Guideline recommends a therapeutic INR range of 2 to 3 (target INR of 2.5). This recommendation includes high-risk patients with antiphospholipid syndrome with previous arterial or venous thromboembolism, current-generation mechanical or bioprosthetic aortic heart valve replacement. Note: Patients with mechanical aortic valve replacement and additional risk factors for thromboembolic events (atrial fibrillation, previous thromboembolism, LV dysfunction, hypercoagulable conditions) or an older generation mechanical AVR (i.e., ball in-Cage) or any mechanical MVR should have a INR therapeutic range of 2.5 to 3.5 (target INR of 3). clif Henao. Chest 2012, 141:7S-47S Avel CARDONA et al. [facility] 2017, 70: 252-289 Performed By: #### PT #### [facility] [address] [place], [place] [address] PROTHROMBIN TIME W/INR Collected: 06/23/2017 Status: F Source: [place] 8:40 AM [facility] REPOSITORY TYPE CODE TESTS RESULT OUT OF RANGE REFERENCE UNITS LAB L300.4150 11.7-14.9 SECONDS High PROTIME 23.0 LAB L300.4200 Normal INR 2.0 Performed By: #### L300.3900 #### [facility] [address] [place], [address] PROTIME Collected: 06/23/2017 Status: F Source: [place] 8:36 AM [facility] REPOSITORY TYPE CODE TESTS RESULT OUT OF REFERENCE UNITS RANGE LAB PSEC 9.7-13.0 sec Test PT sent to [facility]. Result Comment: Account Credited HIDE LAB INR 0.9-1.3 Test sent to PT INR [facility]. Result Comment: Account Credited HIDE PROGRESS Observed: 06/09/2017 Status: COMPLETED Source: [place] 4:12 PM [facility] REPOSITORY HNO ID: [id number] Author: Vesta Marin PSR Service: (none) Author Type: (none) Type: Progress Notes Filed: 06/09/2017 4:13 PM Note Text: Spoke with the patient and scheduled his Corotid Doppler on June 24, 2017 at 9:00 am PROTIME Collected: 06/02/2017 Status: F Source: [place] 9:31 AM [facility] REPOSITORY TYPE CODE TESTS RESULT OUT OF RANGE REFERENCE UNITS LAB PSEC 9.7-13.0 sec High PT Sec 21.2 LAB INR 0.9-1.3 High PT INR 2.1 Result Comment: Vitamin K Antagonist (VKA) Therapeutic Range: INR 2 to 3 (Target INR of 2.5) Note: For patients treated with VKA drugs, such as warfarin, the [place] [employer] 2012 Guideline recommends a therapeutic INR range of 2 to 3 (target INR of 2.5). This recommendation includes high-risk patients with antiphospholipid syndrome with previous arterial or venous thromboembolism, current-generation mechanical or bioprosthetic aortic heart valve replacement. Note: Patients with mechanical aortic valve replacement and additional risk factors for thromboembolic events (atrial fibrillation, previous thromboembolism, LV dysfunction, hypercoagulable conditions) or an older generation mechanical AVR (i.e., ball in-Cage) or any mechanical MVR should have a INR therapeutic range of 2.5 to 3.5 (target INR of 3). Sade PALOMARES, et al. Chest 2012, 141:7S-47S Avel CARDONA, et al. [facility] 2017, 70: 252-289 Performed By: #### PT #### [facility] [address] [place], [place] [address] PROGRESS Observed: 06/02/2017 Status: COMPLETED Source: [place] 9:15 AM [facility] REPOSITORY HNO ID: [id number] Author: Rosanna Oliveira Service: (none) Author Type: Physician Type: Progress Notes Filed: 06/02/2017 9:31 AM Note Text: PERTINENT CARDIAC HISTORY ASHD - PCI LAD 2003 HTN HL Carotid disease Syncope PAF ADHERENCE TO GUIDELINES MASTER-I or ARB for HF with prior LVEF<40 (NQF 0081) - N/A ASA or Plavix for ASHD (NQF 0067) - MET Beta jazmin for ASHD with prior CA or prior LVEF<40 (NQF 0070) - N/A Beta jazmin for HF with prior LVEF<40 (NQF 0083) - N/A MASTER-I or ARB for ASHD with DM or prior LVEF<40 (NQF 0066) - N/A Statin therapy for ASHD or FHL or DM - MET BMI documented and plan if >25 (NQF 0421) - lifestyle recommendation form Tobacco use screening and referral (NQF 0028) - lifestyle recommendation form Recommendation for whole food, plant based diet - lifestyle recommendation form CLINICAL IMPRESSION/PLAN: Geronimo Flores is doing well. His blood pressure is somewhat low. He was advised to decrease fosinopril to 20 milligrams daily and update me with vital signs in 2 weeks. He will be getting labs from the [facility] in the near future and I've asked for a copy. INR has been within range. He is due today. I will see him in 8 months or as needed. If there is increased chest pain or recurrent syncope, he has been advised to contact me. Written and verbal health teaching given to patient, patient verbalizes understanding and agrees with treatment plan. This note was generated using Cloud[employer] voice recognition system, and there may be some incorrect words, spellings, and punctuation that were not noted in checking the note before saving. DIAGNOSIS FOR VISIT: ASHD Hypertension HISTORY OF PRESENT ILLNESS Geronimo Flores returns for follow-up of multiple cardiac issues, as noted above. He's had no further episodes of syncope. He has been working out at the 4 days week. He denies chest pain. His exercise tolerance is stable. He's had no edema, palpitations, TIAs, amaurosis or claudication. He has been having some postural lightheadedness and his blood pressures at home have been in the 110 systolic range. ALLERGIES: ALLERGIES No Known Allergies CURRENT OUTPATIENT MEDICATIONS: simvastatin (ZOCOR) 80 mg tablet TAKE 0.5 TABLETS BY MOUTH DAILY AT BEDTIME. Fosinopril Sodium 40 mg tablet TAKE 1 TABLET BY MOUTH ONCE DAILY. warfarin (COUMADIN) 2.5 mg tablet Take 5mg, 2.5mg, 2.5 mg and repeat, or as directed sildenafil (VIAGRA) 100 mg tablet warfarin (COUMADIN) 2 mg tablet Take 1 tablet by mouth once daily. Or as directed ADULT ASPIRIN 81 MG CHEWABLE TAB Take one(1) tablet daily. PHYSICAL EXAMINATION: VITAL SIGNS: BP 116/67 Pulse 70 Wt 175 lb 3.2 oz (79.5kg) Chest: Clear to percussion and auscultation. Trachea is midline. Air entry is equal. Cardiac: Regular rhythm. S1 and S2 are normal. PMI is nondisplaced. There is a 2/6 aortic outflow murmur. This is early systolic.. Carotids are brisk without bruits. JVP is less than 10 cm. Abdomen: Soft and nontender. There are no pulsatile masses or bruits. No liver enlargement. Bowel sounds are active. Extremities: No edema. Pulses are intact and symmetrical. EKG shows sinus rhythm with frequent atrial ectopics. There is no significant change. Electronically Signed: Rosanna Oliveira MD June 02, 2017 9:15 AM CC: Stas Carter MD CNOV Observed: 06/02/2017 Status: COMPLETED Source: [place] 9:00 AM [facility] OTHER [place] REPOSITORY Office Visit (AGCARDWST) GERONIMO FLORES ([id number]) 1935 M Date Time Provider Department 06/02/17 9:00 AM ROSANNA OLIVEIRA During your visit today, we recorded the following information about you: Pulse Blood pressure Weight 70/minute 116/67 79.5 kg Rosanna Oliveira MD 06/02/2017 9:31 AM Signed PERTINENT CARDIAC HISTORY ASHD - PCI LAD 2002 HTN HL Carotid disease Syncope PAF ADHERENCE TO GUIDELINES MASTER-I or ARB for HF with prior LVEFANDlt;40 (NQF 0081) - N/A ASA or Plavix for ASHD (NQF 0067) - MET Beta jazmin for ASHD with prior CA or prior LVEFANDlt;40 (NQF 0070) - N/A Beta jazmin for HF with prior LVEFANDlt;40 (NQF 0083) - N/A MASTER-I or ARB for ASHD with DM or prior LVEFANDlt;40 (NQF 0066) - N/A Statin therapy for ASHD or FHL or DM - MET BMI documented and plan if ANDgt;25 (NQF 0421) - lifestyle recommendation form Tobacco use screening and referral (NQF 0028) - lifestyle recommendation form Recommendation for whole food, plant based diet - lifestyle recommendation form CLINICAL IMPRESSION/PLAN: Geronimo Flores is doing well. His blood pressure is somewhat low. He was advised to decrease fosinopril to 20 milligrams daily and update me with vital signs in 2 weeks. He will be getting labs from the [facility] in the near future and I've asked for a copy. INR has been within range. He is due today. I will see him in 8 months or as needed. If there is increased chest pain or recurrent syncope, he has been advised to contact me. Written and verbal health teaching given to patient, patient verbalizes understanding and agrees with treatment plan. This note was generated using [employer] voice recognition system, and there may be some incorrect words, spellings, and punctuation that were not noted in checking the note before saving. DIAGNOSIS FOR VISIT: ASHD Hypertension HISTORY OF PRESENT ILLNESS Geronimo Flores returns for follow-up of multiple cardiac issues, as noted above. He's had no further episodes of syncope. [facility] He denies chest pain. His exercise tolerance is stable. He's had no edema, palpitations, TIAs, amaurosis or claudication. He has been having some postural lightheadedness and his blood pressures at home have been in the 110 systolic range. ALLERGIES: ALLERGIES No Known Allergies CURRENT OUTPATIENT MEDICATIONS: simvastatin (ZOCOR) 80 mg tablet TAKE 0.5 TABLETS BY MOUTH DAILY AT BEDTIME. Fosinopril Sodium 40 mg tablet TAKE 1 TABLET BY MOUTH ONCE DAILY. warfarin (COUMADIN) 2.5 mg tablet Take 5mg, 2.5mg, 2.5 mg and repeat, or as directed sildenafil (VIAGRA) 100 mg tablet warfarin (COUMADIN) 2 mg tablet Take 1 tablet by mouth once daily. Or as directed ADULT ASPIRIN 81 MG CHEWABLE TAB Take one(1) tablet daily. PHYSICAL EXAMINATION: VITAL SIGNS: BP 116/67 Pulse 70 Wt 175 lb 3.2 oz (79.5kg) Chest: Clear to percussion and auscultation. Trachea is midline. Air entry is equal. Cardiac: Regular rhythm. S1 and S2 are normal. PMI is nondisplaced. There is a 2/6 aortic outflow murmur. This is early systolic.. Carotids are brisk without bruits. JVP is less than 10 cm. Abdomen: Soft and nontender. There are no pulsatile masses or bruits. No liver enlargement. Bowel sounds are active. Extremities: No edema. Pulses are intact and symmetrical. EKG shows sinus rhythm with frequent atrial ectopics. There is no significant change. Electronically Signed: Rosanna Oliveira MD June 02, 2017 9:15 AM CC: MD Rosanna Vasquez MD 06/02/2017 9:21 AM Addendum Decrease fosinopril to 1/2 tablet daily Call with vital signs in 2 wks LIFESTYLE CHANGE A healthy lifestyle is the most important component of your overall treatment plan. Please give serious thought to the following areas and commit to making correction changes. EAT A WHOLE FOOD, PLANT BASED DIET The nutrition your body gets is more important than the medicine you take. What matters most is the overall way you eat. We encourage you to minimize the use of animal products (which include dairy and all meats except fatty fish) and use whole, unprocessed plant foods to provide your protein, vitamins and other nutrients. We have a lot of information to share with you on this topic. We also hold Shared Medical Appointments, where you can come visit with Dr. Oliveira in the company of other patients and spend over an hour talking about the challenges of changing the way you eat. This is not a ANDquot;dietANDquot;. It is a way of life that you will keep with you. EXERCISE REGULARLY It is not important to spend hours in the gym, lifting weights and perspiring heavily. A total of 2-3 hours per week of aerobic (causing you to be moderately short of breath) exercise is sufficient to improve your health. Talk to us before you begin a new exercise program, if you have heart disease or experience shortness of breath or chest pain. REDUCE STRESS Chronic emotional and physical stress leads to disease. Ways of reducing stress include meditation, visualization, prayer, yoga and other forms of relaxation therapy. Consistency is the carpio. Find a technique that works for you and do it every day. CULTIVATE RELATIONSHIPS Loneliness and isolation have a major negative impact on health. Seek out others who can love, care for and nurture you. Avoid hurtful relationships. MAINTAIN IDEAL BODY WEIGHT The best way to do this is to do all the things above. Our bodies naturally find the right weight if we keep moving and feed ourselves the right food. If your BMI is greater than 25, we strongly recommend a referral to a weight management program. Please speak to us or your family physician about available programs. AVOID NICOTINE IN ALL FORMS This includes all tobacco products, whether chewed, smoked, vaped, or rubbed on the skin. Smoking cessation programs, which can make use of tobacco substitutes, medications to suppress cravings and behavior management, are available. Please contact your family physician about programs in your area. Vesta Marin PSR 06/09/2017 4:13 PM Signed Spoke with the patient and scheduled his Corotid Doppler on June 24, 2017 at 9:00 am Referring Provider: ROSANNA OLIVEIRA [[id number]] Allergies As of Date: 06/02/2017 (No Known Allergies) Date Reviewed: 06/02/2017 Reviewed by: Kandi Kyle - Fully Assessed Reason for Visit: Recheck [92] Primary Visit Diagnosis:ASHD (arteriosclerotic heart disease) [I25.10] Other Visit Diagnosis:PAF (paroxysmal atrial fibrillation) (HCC) [I48.0] Order(s):ECG B/O W INTERP (MED OFFICE) [ECG06] Order #: [id number] Fosinopril Sodium 40 mg tabletTake 1/2 tablet dailyDisp: Rfl: Prescriptions as of 06/02/2017 Sig: FOSINOPRIL 40 MG TABLET Take 1/2 tablet daily SIMVASTATIN 80 MG TABLET TAKE 0.5 TABLETS BY MOUTH MELIA* WARFARIN 2.5 MG TABLET Take 5mg, 2.5mg, 2.5 mg and r* SILDENAFIL 100 MG TABLET WARFARIN 2 MG TABLET Take 1 tablet by mouth once d* * ADULT ASPIRIN 81 MG CHEWABLE * Take one(1) tablet daily. 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 Please give serious thought to the following areas and commit to making correction changes. EAT A WHOLE FOOD, PLANT BASED DIET The nutrition your body gets is more important than the medicine you take. What matters most is the overall way you eat. We encourage you to minimize the use of animal products (which include dairy and all meats except fatty fish) and use whole, unprocessed plant foods to provide your protein, vitamins and other nutrients. We have a lot of information to share with you on this topic. We also hold Shared Medical Appointments, where you can come visit with Dr. Oliveira in the company of other patients and spend over an hour talking about the challenges of changing the way you eat. This is not a diet. It is a way of life that you will keep with you. EXERCISE REGULARLY It is not important to spend hours in the gym, lifting weights and perspiring heavily. A total of 2-3 hours per week of aerobic (causing you to be moderately short of breath) exercise is sufficient to improve your health. Talk to us before you begin a new exercise program, if you have heart disease or experience shortness of breath or chest pain. REDUCE STRESS Chronic emotional and physical stress leads to disease. Ways of reducing stress include meditation, visualization, prayer, yoga and other forms of relaxation therapy. Consistency is the carpio. Find a technique that works for you and do it every day. CULTIVATE RELATIONSHIPS Loneliness and isolation have a major negative impact on health. Seek out others who can love, care for and nurture you. Avoid hurtful relationships. MAINTAIN IDEAL BODY WEIGHT The best way to do this is to do all the things above. Our bodies naturally find the right weight if we keep moving and feed ourselves the right food. If your BMI is greater than 25, we strongly recommend a referral to a weight management program. Please speak to us or your family physician about available programs. AVOID NICOTINE IN ALL FORMS This includes all tobacco products, whether chewed, smoked, vaped, or rubbed on the skin. Smoking cessation programs, which can make use of tobacco substitutes, medications to suppress cravings and behavior management, are available. Please contact your family physician about programs in your area. Prescriptions ordered this encounter Disp Refills Start End FOSINOPRIL 40 MG TABLET 90 t* 3 06/02/2017 06/02/2017 Class: Med Update Route: ORAL Sig: Take 1 tablet by mouth once daily. FOSINOPRIL 40 MG TABLET 06/02/2017 Class: Med Update Sig: Take 1/2 tablet daily Medications Discontinued During This Encounter metoprolol tartrate, short acting, (* 09/26/2016 06/02/2017 Class: Med Update Route: ORAL Sig: Take 1 tablet by mouth twice daily. Disc: Reason for discontinue is not on file. Cosign accepted by STAS CARTER MD[[id number]] on 09/30/2016 2:01 PM Fosinopril Sodium 40 mg tablet 90 t* 3 03/05/2017 06/02/2017 Sig: TAKE 1 TABLET BY MOUTH ONCE DAILY. Disc: Reason for discontinue is not on file. Fosinopril Sodium 40 mg tablet 90 t* 3 06/02/2017 06/02/2017 Class: Med Update Route: ORAL Sig: Take 1 tablet by mouth once daily. Disc: Reason for discontinue is not on file. Follow-up and Disposition History Recorded Encounter Status:Closed by ROSANNA OLIVEIRA MD on 06/02/17 PROTIME Collected: 05/12/2017 Status: F Source: [place] 8:05 AM [facility] REPOSITORY TYPE CODE TESTS RESULT OUT OF RANGE REFERENCE UNITS LAB PSEC 9.7-13.0 sec High PT Sec 20.3 LAB INR 0.9-1.3 High PT INR 2.1 Result Comment: Vitamin K Antagonist (VKA) Therapeutic Range: INR 2 to 3 (Target INR of 2.5) Note: For patients treated with VKA drugs, such as warfarin, the [place] [employer] 2012 Guideline recommends a therapeutic INR range of 2 to 3 (target INR of 2.5). This recommendation includes high-risk patients with antiphospholipid syndrome with previous arterial or venous thromboembolism, current-generation mechanical or bioprosthetic aortic heart valve replacement. Note: Patients with mechanical aortic valve replacement and additional risk factors for thromboembolic events (atrial fibrillation, previous thromboembolism, LV dysfunction, hypercoagulable conditions) or an older generation mechanical AVR (i.e., ball in-Cage) or any mechanical MVR should have a INR therapeutic range of 2.5 to 3.5 (target INR of 3). Sade GH, et al. Chest 2012, 141:7S-47S Avel RA, et al. [facility] 2017, 70: 252-289 Performed By: #### PT #### [facility] [address] [address] PROGRESS Observed: 05/04/2017 Status: COMPLETED Source: [place] 12:37 PM [facility] REPOSITORY HNO ID: [id number] Author: Gabriela Cristobal) SHEMAR Ramirez Service: (none) Author Type: Nurse Practitioner Type: Progress Notes Filed: 05/04/2017 1:04 PM Note Text: Chief Complaint Patient presents with: Pain HPI Geronimo Flores is a 81 year old male who presents here today for Above Complaints.. Patient presents to the office with complaints of left sided rib, axilla pain. Does have a history of stent placement in the past 15 years. Intermittent. Has been present for 2-3 days. Did shovel some snow last week. No pain at this time. Pain usually only occurs in the morning and with movement, twisting, and lifting arm above his head. When pain does occur, he described as a dull pain that feels like heat. Pain usually for 30-60 minutes at a time. During that time period, the pain can be intermittent. Has not had any syncopal episodes, periods of diaphoresis, or left arm pain. Denies any shortness of breath or chest pain. Has not taken any medications for this complaint. Has not tried any other interventions. Follows with Dr. Oliveira with cardiology. States that he thinks that it is muscular, but his made him come to the office. Past medical history, appointments, medications, allergies reviewed. Previous Medical History PAST MEDICAL HISTORY Diagnosis Date - Coronary atherosclerosis of unspecified type of vessel, [place] or graft Coronary artery disease - Other and unspecified hyperlipidemia - Unspecified essential hypertension Essential hypertension Previous Surgical History PAST SURGICAL HISTORY Procedure Laterality Date - APPENDECTOMY - PERC TRANSL COR ANGIO 2005 last time Percutaneous Transluminal Coronary Angio Status 3 procedures Family History FAMILY HISTORY Problem Relation Age of Onset - Arthritis Mother - Alcohol/Drug Father - Stroke Father - Cancer Brother 50 Stomach cancer Patient Allergies ALLERGIES No Known Allergies Current Medications Current Outpatient Prescriptions on File Prior to Visit: simvastatin (ZOCOR) 80 mg tablet TAKE 0.5 TABLETS BY MOUTH DAILY AT BEDTIME. Fosinopril Sodium 40 mg tablet TAKE 1 TABLET BY MOUTH ONCE DAILY. warfarin (COUMADIN) 2.5 mg tablet Take 5mg, 2.5mg, 2.5 mg and repeat, or as directed sildenafil (VIAGRA) 100 mg tablet metoprolol tartrate, short acting, (LOPRESSOR) 25 mg tablet Take 1 tablet by mouth twice daily. warfarin (COUMADIN) 2 mg tablet Take 1 tablet by mouth once daily. Or as directed ADULT ASPIRIN 81 MG CHEWABLE TAB Take one(1) tablet daily. No current facility-administered medications on file prior to visit. Social History Social History Marital status: Spouse name: Years of education: Number of children: Social History Main Topics Smoking status: Former Smoker Packs/day: 0.00 Years: 0.00 Smokeless status: Never Used Comment: 30 yaers ago Alcohol use: No Drug use: No REVIEW OF SYSTEMS: as above ? Reviewed relevant PMHx, PSHx, Social Hx, current medications and allergies. EXAM: BP 120/78 Pulse 76 Temp 36.9 ?C (98.4 ?F) (Tympanic) Resp 20 Wt 77.6 kg (171 lb) BMI 23.19 kg/m2 General Appearance: Well appearing, alert, in no acute distress, well-hydrated, well nourished.. Neck: Supple, no adenopathy; thyroid symmetric, normal size, no bruits. Lungs: Lungs clear to auscultation. No wheezing, rhonchi, rales. Heart: RRR without gallop, or rubs. No ectopy. Systolic murmur noted, chronic Extremities: No deformities, edema. Musculoskeletal: Mild tenderness of the intercostal space between ribs 3 and 4 on the left side, axillary line. Health Maintenance List ADULT PREVNAR-13 due on 08/12/2000 TETANUS due on 02/21/2018 DIABETES SCREEN due on 12/24/2018 INFLUENZA Completed PNEUMOVAX AGE 65 AND OVER WITH 5YR LOOKBACK Completed Data reviewed Component Latest Ref Rng AND Units 04/28/2017 PT Sec 9.7 - 13.0 sec 20.7 (H) PT INR 0.9 - 1.3 2.1 (H) ASSESSMENT/PLAN: 1. Muscle strain - ICD9: 848.9, ICD10: T14.8XXA - Was able to reproduce the pain at the location of the complaint in the left side of the rib cage. - Suspect ligament strain with recent shoveling snow, pain with movement and twisting of torso. - Advised tylenol, application of ice. - Discussed signs of cardiac chest pain and the need to go to nearest ER if developing these symptoms. - Discussed possible use of muscle relaxer but decided on not pursuing this regimen due to sedation, increased risk of falls. - Discussed these topics with his . No further questions verbalized. Follow up as needed. Gabriela Ramirez CNP PROTIME Collected: 04/28/2017 Status: F Source: [place] 8:27 AM [facility] REPOSITORY TYPE CODE TESTS RESULT OUT OF RANGE REFERENCE UNITS LAB PSEC 9.7-13.0 sec High PT Sec 20.7 LAB INR 0.9-1.3 High PT INR 2.1 Result Comment: Vitamin K Antagonist (VKA) Therapeutic Range: INR 2 to 3 (Target INR of 2.5) Note: For patients treated with VKA drugs, such as warfarin, the [place] [employer] 2012 Guideline recommends a therapeutic INR range of 2 to 3 (target INR of 2.5). This recommendation includes high-risk patients with antiphospholipid syndrome with previous arterial or venous thromboembolism, current-generation mechanical or bioprosthetic aortic heart valve replacement. Note: Patients with mechanical aortic valve replacement and additional risk factors for thromboembolic events (atrial fibrillation, previous thromboembolism, LV dysfunction, hypercoagulable conditions) or an older generation mechanical AVR (i.e., ball in-Cage) or any mechanical MVR should have a INR therapeutic range of 2.5 to 3.5 (target INR of 3). Gukrunaltt GH, et al. Chest 2012, 141:7S-47S Avel RA, et al. [facility] 2017, 70: 252-289 Performed By: #### PT #### [facility] [address] [place], [place] [address] PROTIME Collected: 04/21/2017 Status: F Source: [place] 9:13 AM [facility] REPOSITORY TYPE CODE TESTS RESULT OUT OF REFERENCE UNITS RANGE LAB PSEC 9.7-13.0 sec Test PT sent to [facility]. Result Comment: Account Credited HIDE LAB INR 0.9-1.3 Test sent to PT INR [facility]. Result Comment: Account Credited HIDE PROTHROMBIN TIME W/INR Collected: 04/21/2017 Status: F Source: [place] 12:00 AM [facility] REPOSITORY TYPE CODE TESTS RESULT OUT OF RANGE REFERENCE UNITS LAB L300.4150 11.7-14.9 SECONDS High PROTIME 21.5 LAB L300.4200 Normal INR 2.0 Performed By: #### L300.3900 #### [facility] [address] [place], [address] ALLERGIES ALLERGIES DATE TYPE / CODE NAME / CODE REACTION SEVERITY SOURCE 10/06/2017 [address] No Known Unknown [facility] Allergy/416 Allergies/Z87248 Hospital 443610(SNOM 0388(RXNORM) Repository ED CT) Drug NO KNOWN [facility] Class/10471 ALLERGIES Other [place] 1003(SNOMED Repository CT) NG/17890012 NO KNOWN [facility] 6(SNOMED ALLERGIES [facility]) Repository ENCOUNTERS ENCOUNTERS ADMIT/DISCHARGE ACCOUNT NUMBER ADMITTING ENCOUNTER LOCATION SOURCE CLASS 04/05/2018 [id number] Ambulatory [facility] ding:LABSPEC Repository 04/05/2018/04/07/19 [id number] Ambulatory [address] Main [place] Repository 04/05/2018/04/05/19 [id number] Ambulatory [address] [place] Repository 03/09/2018 [id number] Ambulatory [facility] ding:LABSPEC Repository 03/09/2018/03/09/20 [id number] Ambulatory [address] [place] Repository 02/09/2018 [id number] Ambulatory [facility] ding:LABSPEC Repository 02/09/2018/02/10/20 [id number] Ambulatory [address] [place] Repository 02/02/2018/02/03/20 [id number] Ambulatory [address] [place] Repository 02/02/2018 [id number] Ambulatory [facility] MEDICAL Repository CENTERBuildi ng:CAGWS 01/12/2018 [id number] Ambulatory [facility] ding:LABSPEC Repository 01/12/2018/01/13/20 [id number] Ambulatory [facility] Main [place] Repository 01/12/2018/01/13/20 [id number] Ambulatory [address] [place] Repository 12/22/2017/12/23/19 [id number] Ambulatory [facility] [place] Repository 12/15/2017/12/17/19 [id number] Ambulatory [facility] [place] Repository 12/01/2017/12/02/19 [id number] Ambulatory [address] [place] Repository 11/17/2017 [id number] Ambulatory [facility] ding:LABSPEC Repository 11/17/2017/11/18/19 [id number] Ambulatory [address] [place] Repository 11/03/2017 [id number] Ambulatory [facility] ding:LABSPEC Repository 11/03/2017/11/04/19 [id number] Ambulatory [address] [place] Repository 10/27/2017 [id number] Ambulatory [facility] ding:LABSPEC Repository 10/27/2017/10/28/19 [id number] Ambulatory [address] [place] Repository 10/20/2017/10/21/19 [id number] Ambulatory [address] [place] Repository 10/20/2017 [id number] Ambulatory [facility] ding:LABSPEC Repository 10/13/2017 [id number] Ambulatory [facility] ding:LABSPEC Repository 10/13/2017/10/14/19 [id number] Ambulatory [address] [place] Repository 10/06/2017/10/07/19 [id number] Emergency [address] ding:ED Repository 10/06/2017/10/07/19 [id number] Ambulatory [address] [place] Repository 09/22/2017 [id number] Ambulatory [facility] ding:LABSPEC Repository 09/22/2017/09/23/19 [id number] Ambulatory [address] [place] Repository 09/15/2017/09/16/19 [id number] Ambulatory [address] [place] Repository 09/08/2017 [id number] Ambulatory [facility] ding:LABSPEC Repository 09/08/2017/09/09/19 [id number] Ambulatory [address] [place] Repository 08/26/2017 [id number] Ambulatory [facility] ding:LABSPEC Repository 08/26/2017/08/27/19 [id number] Ambulatory [place] [facility] [place] Repository 08/25/[id number] [facility] [place] Repository 08/25/2017/08/26/19 [id number] Ambulatory [place] [facility] [place] Repository 08/25/2017 [id number] Ambulatory [facility] ding:LABSPEC Repository 08/18/2017/08/19/19 [id number] Ambulatory [address] [place] Repository 08/11/2017 [id number] Ambulatory [facility] ding:LABSPEC Repository 08/11/2017/08/12/19 [id number] Ambulatory [address] [place] Repository 07/28/2017/07/29/19 [id number] Ambulatory [address] [place] Repository 07/14/2017/07/15/19 [id number] Ambulatory [address] [place] Repository 07/07/2017/07/08/19 [id number] Ambulatory [address] [place] Repository 06/24/2017/07/01/19 [id number] Ambulatory [address] [place] Repository 06/23/2017 [id number] Ambulatory [facility] ding:LABSPEC Repository 06/23/2017/06/24/19 [id number] Ambulatory [address] [place] Repository 06/02/2017/06/03/19 [id number] Ambulatory [address] [place] Repository 06/02/2017/06/03/19 [id number] Ambulatory [address] Other [place] Repository 06/02/2017/06/03/19 [id number] Ambulatory [address] MEDICAL Repository CENTERBuildi ng:CAGWS 05/12/2017/05/12/19 [id number] Ambulatory [address] [place] Repository 05/04/2017/05/05/19 [id number] Ambulatory [address] [place] Repository 04/28/2017/04/28/19 [id number] Ambulatory [address] [place] Repository 04/21/2017/04/21/19 [id number] Ambulatory [address] [place] Repository 04/21/2017 [id number] Ambulatory [facility] ding:LABSPEC Repository PAYERS PAYERS ENCOUNTER GUARANTOR PAYER SUBSCRIBER SOURCE 04/05/2018 GERONIMO Garcia Primary GERONIMO E [place] [address] [facility] [place] [address], MEDICAREPolicy [id number] [facility] [address]Hai: Number: Repository [id number] (HP) Date:4328-23-77[address] [place] [address]JN: 04/05/2018 Secondary NOT GIVENUNK Bernice Insurance:SELF PAY [facility] Number: Effective Repository Date:2018-04-05 03/09/2018 GERONIMO E Primary GERONIMO E Bern[place] [address] Insurance:[employer] CARPENTERDOB: [place] [address], MEDICAREPolicy [id number] General Hospital [address]Vcy: Number: Repository [id number] (HP) Date:6290-07-99[address] [place] [address]UE: 03/09/2018 Secondary NOT GIVENUNK [place] Insurance:SELF PAY [facility] Number: Effective Repository Date:2018-03-09 02/09/2018 GERONIMO E Primary GERONIMO E [place] [address] Insurance:[employer] CARPENTERDOB: [place] [address], MEDICAREPolicy [id number] General Hospital [address]Tbv: Number: Repository [id number] (HP) Date:4929-93-08[address] [place] [address]WP: 02/09/2018 Secondary NOT GIVENUNK [place] Insurance:SELF PAY [facility] Number: Effective Repository Date:2018-02-09 02/02/2018 GERONIMO E Primary Insurance:[place] [facility]Policy CARPENTERDOB: [facility] [id number] BOX Number: [id number] Repository [address] [place] [address] [id number] [place] [address]Nrp: Date: (HP) 01/12/2018 GERONIMO E Primary GERONIMO E [place] [address] Insurance:[employer] CARPENTERDOB: [place] [address], MEDICAREPolicy [id number] General Hospital [address]Mat: Number: Repository [id number] (HP) Date:1189-81-82JW [address] [place] [address]XW: 01/12/2018 Secondary NOT GIVENUNK [place] Insurance:SELF PAY [facility] Number: Effective Repository Date:2018-01-12 11/17/2017 GERONIMO E Primary GERONIMO E [place] [address] Insurance:[employer] CARPENTERDOB: [place] [address], MEDICAREPolicy [id number] [facility] [place] [address]Sja: Number: Repository [id number] (HP) Date:5811-35-00[address] [place] [address]XJ: 11/17/2017 Secondary NOT GIVENUNK [place] Insurance:SELF PAY [facility] Number: Effective Repository Date:2017-11-17 11/03/2017 GERONIMO E Primary GERONIMO E [place] [address] Insurance:[employer] CARPENTERDOB: [place] [address], MEDICAREPolicy [id number] [facility] [place] [address]Nou: Number: Repository [id number] (HP) Date:4182-80-98FQ [address] [place] [address]EF: 11/03/2017 Secondary NOT GIVENUNK [place] Insurance:SELF PAY [facility] Number: Effective Repository Date:2017-11-03 10/27/2017 GERONIMO E Primary GERONIMO E [place] [address] Insurance:[employer] CARPENTERDOB: [place] [address], MEDICAREPolicy [id number] [place] [address]Srk: Number: Repository [id number] (HP) Date:2176-20-88SZ [address] [place] [address]JJ: 10/27/2017 Secondary NOT GIVENUNK [place] Insurance:SELF PAY [facility] Number: Effective Repository Date:2017-10-27 10/20/2017 GERONIMO E Primary GERONIMO E [place] [address] Insurance:[employer] CARPENTERDOB: [place] [address], MEDICAREPolicy [id number] Hospital [place] [address]Lmn: Number: Repository [id number] (HP) Date:5565-88-04ZV [address] [place] [address]XW: 10/20/2017 Secondary NOT GIVENUNK [place] Insurance:SELF PAY [facility] Number: Effective Repository Date:2017-10-20 10/13/2017 GERONIMO E Primary GERONIMO E [place] [address] Insurance:[employer] CARPENTERDOB: [place] [address], MEDICAREPolicy [id number] General Hospital [address]Xns: Number: Repository [id number] (HP) Date:2401-32-49[address] [place] [address]TI: 10/13/2017 Secondary NOT GIVENUNK [place] Insurance:SELF PAY [facility] Number: Effective Repository Date:2017-10-13 10/06/2017 GERONIMO E Primary GERONIMO E [place] [address] Insurance:[employer] CARPENTERDOB: [place] [address], MEDICAREPolicy [id number] [place] [address]Egq: Number: Repository [id number] (HP) Date:0073-24-20LD [address] [place] [address]JB: 10/06/2017 Secondary NOT GIVENUNK [place] Insurance:SELF PAY [facility] Number: Effective Repository Date:2017-10-06 09/22/2017 GERONIMO E Primary GERONIMO E [place] [address] Insurance:[employer] CARPENTERDOB: [place] [address], MEDICAREPolicy [id number] [place] [address]Aid: Number: Repository [id number] (HP) Date:7904-89-26CD [address] [place] [address]FO: 09/22/2017 Secondary NOT GIVENUNK [place] Insurance:SELF PAY [facility] Number: Effective Repository Date:2017-09-22 09/08/2017 GERONIMO E Primary GERONIMO E [place] [address] Insurance:[employer] CARPENTERDOB: [place] [address], MEDICAREPolicy [id number] Hospital [place] [address]Iox: Number: Repository [id number] (HP) Date:8656-60-73MI [address] [place] [address]DZ: 09/08/2017 Secondary NOT GIVENUNK [place] Insurance:SELF PAY [facility] Number: Effective Repository Date:2017-09-08 08/26/2017 GERONIMO E Primary GERONIMO E [place] [address] Insurance:[employer] CARPENTERDOB: [place] [address], MEDICAREPolicy [id number] General Hospital [address]Pqw: Number: Repository [id number] (HP) Date:3772-76-21TM [address] [place] [address]PX: 08/26/2017 Secondary NOT GIVENUNK [place] Insurance:SELF PAY [facility] Number: Effective Repository Date:2017-08-26 08/25/2017 GERONIMO E Primary GERONIMO E [place] [address] Insurance:[employer] CARPENTERDOB: [place] [address], MEDICAREPolicy [id number] General Hospital [address]Cad: Number: Repository [id number] (HP) Date:8227-49-25JY [address] [place] [address]UQ: 08/25/2017 Secondary NOT GIVENUNK [place] Insurance:SELF PAY [facility] Number: Effective Repository Date:2017-08-25 08/11/2017 Geronimo E Primary Geronimo E [place] [address] Insurance:[employer] CarpenterDOB: [place] [address], MEDICAREPolicy [id number] General Hospital [address]Qwq: Number: Repository [id number] (HP) Date:7927-51-55[address] [place] [address]GS: 08/11/2017 Secondary NOT GIVENUNK [place] Insurance:SELF PAY [facility] Number: Effective Repository Date:2017-08-11 06/23/2017 Geronimo E Primary Geronimo E [place] [address] Insurance:[employer] CarpenterDOB: [place] [address], MEDICAREPolicy [id number] General Hospital [address]Mof: Number: Repository [id number] (HP) Date:3429-68-68D[address] [place] [address]LZ: 06/23/2017 Secondary NOT GIVENUNK [place] Insurance:SELF PAY [facility] Number: Effective Repository Date:2017-06-23 06/02/2017 GERONIMO Garcia Primary Insurance:[place] GERONIMO E [facility] MEDICAREPolicy CARPENTERDOB: [facility] [id number] BOX Number: [id number] Repository [address] [place] [address] [id number] [place] [address]Rjm: Date: (HP) 04/21/2017 Geronimo Garcia Primary Geronimo E [place] [facility] [address] Insurance:[facility] CarpenterDOB: [place] [address], MEDICAREPolicy [id number] General Hospital [address]Jjv: Number: Repository [id number] (HP) Date:3094-09-51E[address] [place] [address]TF: 04/21/2017 Secondary Geronimo E Bernice Insurance[facility] Number: [id number] Hospital [id number] Repository Date:8056-78-91PWV SERVICE [id number] [place], [place] [address]MH: [phone] X2003 04/21/2017 Tertiary NOT GIVENUNK [place] Insurance:SELF PAY [facility] Number: Effective Repository Date:2017-04-21
== END ==
PROVIDERS: Family Provider Family Medicine; PCP Family Medicine; Referring Provider Internal Medicine Cardiovascular Disease; Visit Provider Internal Medicine Cardiovascular Disease
DX: I48.0 Paroxysmal atrial fibrillation (principal)
CPT/HCPCS: 85610

== ENCOUNTER → 2018-04-05 13:20 | Outpatient (CLI) | payer MEDICARE, SELFPAY ==
[2018-04-05 13:42] LABS: Prothrombin Time (Protime)PT. 22.6 SECONDS (11.7-14.9)
== END ==
PROVIDERS: Family Provider Family Medicine; PCP Family Medicine; Referring Provider Internal Medicine Cardiovascular Disease; Visit Provider Internal Medicine Cardiovascular Disease
DX: I48.0 Paroxysmal atrial fibrillation (principal); K13.0 Diseases of lips
CPT/HCPCS: 85610; 87077; 87102; 87106; 87206

== ENCOUNTER → 2018-05-04 12:22 | Outpatient (CLI) | payer MEDICARE, SELFPAY ==
[2018-05-04 13:19] LABS: Prothrombin Time (Protime)PT. 22.7 SECONDS (11.7-14.9)
== END ==
PROVIDERS: Family Provider Family Medicine; PCP Family Medicine; Referring Provider Internal Medicine Cardiovascular Disease; Visit Provider Internal Medicine Cardiovascular Disease
DX: I48.0 Paroxysmal atrial fibrillation (principal)
CPT/HCPCS: 85610

== ENCOUNTER → 2018-06-01 12:17 | Outpatient (CLI) | payer MEDICARE, SELFPAY ==
[2018-06-01 12:59] LABS: International Normalized Ratio 2.2; Prothrombin Time (Protime)PT. 24.5 SECONDS (11.7-14.9)
== END ==
PROVIDERS: Family Provider Family Medicine; PCP Family Medicine; Referring Provider Internal Medicine Cardiovascular Disease; Visit Provider Internal Medicine Cardiovascular Disease
DX: I48.0 Paroxysmal atrial fibrillation (principal)
CPT/HCPCS: 85610

== ENCOUNTER → 2018-06-29 10:19 | Outpatient (CLI) | payer MEDICARE, SELFPAY ==
[2018-06-29 11:13] LABS: Prothrombin Time (Protime)PT. 22.4 SECONDS (11.7-14.9)
== END ==
PROVIDERS: Family Provider Family Medicine; PCP Family Medicine; Referring Provider Internal Medicine Cardiovascular Disease; Visit Provider Internal Medicine Cardiovascular Disease
DX: I48.0 Paroxysmal atrial fibrillation (principal)
CPT/HCPCS: 85610

== ENCOUNTER → 2018-07-22 09:57 | Outpatient (CLI) | payer MEDICARE, SELFPAY ==
[2018-07-22 10:24] LABS: International Normalized Ratio 1.8; Prothrombin Time (Protime)PT. 20.5 SECONDS (11.7-14.9)
[2018-07-22 14:17] LABS: Vitamin B12 265 pg/mL (211-911)
== END ==
PROVIDERS: Family Provider Family Medicine; PCP Family Medicine; Referring Provider Family Medicine; Visit Provider Family Medicine
DX: R68.2 Dry mouth, unspecified (principal); K14.6 Glossodynia; Z79.01 Long term (current) 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
CPT/HCPCS: 82607; 85610

== ENCOUNTER → 2018-09-02 10:17 | Outpatient (CLI) | payer MEDICARE, SELFPAY ==
[2018-09-02 16:07] LABS: International Normalized Ratio 1.6; Prothrombin Time (Protime)PT. 19.3 SECONDS (11.7-14.9)
== END ==
PROVIDERS: Family Provider Family Medicine; PCP Family Medicine; Referring Provider Family Medicine; Visit Provider Family Medicine
DX: I48.0 Paroxysmal atrial fibrillation (principal); Z79.01 Long term (current) 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
CPT/HCPCS: 85610

== ENCOUNTER → 2018-09-08 | Outpatient (CLI) | payer MEDICARE, SELFPAY ==
[2018-09-09 14:06] LABS: RNP Ab 0.2 AI (0.0-0.9); SJOGREN'S Anti-SS-A test < 0.2 AI (0.0-0.9); SJOGREN'S Anti-SS-B test < 0.2 AI (0.0-0.9); Smith Ab <0.2 AI (0.0-0.9)
[2018-09-09 15:07] LABS: ANTINUCLEAR ANTIBODIES DIRECT Negative (Negative); Anti-dsDNA Ab <1 IU/mL (0-9)
[2018-09-09 16:07] LABS: RNP Ab 0.2 AI (0.0-0.9); Smith Ab <0.2 AI (0.0-0.9)
[2018-09-09 16:31] LABS: Anti-Nuclear Antibody Test Negative (.)
== END | disposition home or self-care (01) ==
LOC: LAB 10:05
PROVIDERS: Family Provider Family Medicine; PCP Family Medicine; Referring Provider Dermatology; Visit Provider Dermatology
DX: K11.7 Disturbances of salivary secretion (principal)
CPT/HCPCS: 36415; 86038; 86225; 86235

== ENCOUNTER → 2018-09-16 13:54 | Outpatient (CLI) | payer MEDICARE, SELFPAY ==
[2018-09-16 14:31] LABS: International Normalized Ratio 2.2
== END ==
PROVIDERS: Family Provider Family Medicine; PCP Family Medicine; Referring Provider Family Medicine; Visit Provider Family Medicine
DX: I48.0 Paroxysmal atrial fibrillation (principal); Z79.01 Long term (current) 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
CPT/HCPCS: 85610

== ENCOUNTER → 2018-10-07 10:30 | Outpatient (CLI) | payer MEDICARE, SELFPAY ==
[2018-10-07 10:59] LABS: International Normalized Ratio 2.7
== END ==
PROVIDERS: Family Provider Family Medicine; PCP Family Medicine; Referring Provider Family Medicine; Visit Provider Family Medicine
DX: I48.0 Paroxysmal atrial fibrillation (principal); Z79.01 Long term (current) 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
CPT/HCPCS: 85610

== ENCOUNTER → 2018-11-04 08:31 | Outpatient (CLI) | payer MEDICARE, SELFPAY ==
[2018-11-04 09:54] LABS: International Normalized Ratio 2.6; Prothrombin Time (Protime)PT. 27.5 SECONDS (11.7-14.9)
== END ==
PROVIDERS: Family Provider Family Medicine; PCP Family Medicine; Referring Provider Family Medicine; Visit Provider Family Medicine
DX: Z79.01 Long term (current) 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 (principal); I48.0 Paroxysmal atrial fibrillation
CPT/HCPCS: 85610

== ENCOUNTER → 2018-12-02 10:30 | Outpatient (CLI) | payer MEDICARE, SELFPAY ==
[2018-12-02 11:05] LABS: International Normalized Ratio 2.5; Prothrombin Time (Protime)PT. 26.8 SECONDS (11.7-14.9)
== END ==
PROVIDERS: Family Provider Family Medicine; PCP Family Medicine; Referring Provider Family Medicine; Visit Provider Family Medicine
DX: I48.0 Paroxysmal atrial fibrillation (principal); Z79.01 Long term (current) 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
CPT/HCPCS: 85610

== ENCOUNTER → 2019-01-27 10:32 | Outpatient (CLI) | payer MEDICARE, SELFPAY ==
[2019-01-27 11:12] LABS: International Normalized Ratio 3.2; Prothrombin Time (Protime)PT. 32.8 SECONDS (11.7-14.9)
== END ==
PROVIDERS: Family Provider Family Medicine; PCP Family Medicine; Referring Provider Family Medicine; Visit Provider Family Medicine
DX: I48.0 Paroxysmal atrial fibrillation (principal); Z79.01 Long term (current) 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
CPT/HCPCS: 85610

== ENCOUNTER → 2019-03-10 12:55 | Outpatient (CLI) | payer MEDICARE, SELFPAY ==
[2019-03-10 14:00] LABS: International Normalized Ratio 1.8; Prothrombin Time (Protime)PT. 20.7 SECONDS (11.7-14.9)
== END ==
PROVIDERS: Family Provider Family Medicine; PCP Family Medicine; Referring Provider Family Medicine; Visit Provider Family Medicine
DX: I48.0 Paroxysmal atrial fibrillation (principal); Z79.01 Long term (current) 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
CPT/HCPCS: 85610

== ENCOUNTER → 2019-03-31 12:25 | Outpatient (CLI) | payer MEDICARE, SELFPAY ==
[2019-03-31 13:03] LABS: International Normalized Ratio 1.7; Prothrombin Time (Protime)PT. 19.7 SECONDS (11.7-14.9)
== END ==
PROVIDERS: Family Provider Family Medicine; PCP Family Medicine; Referring Provider Family Medicine; Visit Provider Family Medicine
DX: I48.0 Paroxysmal atrial fibrillation (principal); Z79.01 Long term (current) 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
CPT/HCPCS: 85610

== ENCOUNTER → 2019-04-21 12:48 | Outpatient (CLI) | payer MEDICARE, SELFPAY ==
[2019-04-21 13:29] LABS: International Normalized Ratio 1.5; Prothrombin Time (Protime)PT. 17.8 SECONDS (11.7-14.9)
== END ==
PROVIDERS: PCP Family Medicine; Referring Provider Family Medicine; Visit Provider Family Medicine
DX: I48.0 Paroxysmal atrial fibrillation (principal); Z79.01 Long term (current) 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
CPT/HCPCS: 85610

== ENCOUNTER → 2019-05-05 12:25 | Outpatient (CLI) | payer MEDICARE, SELFPAY ==
[2019-05-05 13:36] LABS: International Normalized Ratio 2.3; Prothrombin Time (Protime)PT. 25.4 SECONDS (11.7-14.9)
== END ==
PROVIDERS: PCP Family Medicine; Referring Provider Family Medicine; Visit Provider Family Medicine
DX: I48.0 Paroxysmal atrial fibrillation (principal); Z79.01 Long term (current) 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
CPT/HCPCS: 85610

== ENCOUNTER → 2019-09-22 10:07 | Outpatient (CLI) | payer MEDICARE, SELFPAY ==
[2019-09-22 10:30] LABS: International Normalized Ratio 1.8; Prothrombin Time (Protime)PT. 20.4 SECONDS (11.7-14.9)
== END ==
PROVIDERS: PCP Family Medicine; Referring Provider Family Medicine; Visit Provider Family Medicine
DX: Z79.01 Long term (current) 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 (principal)
CPT/HCPCS: 85610

== ENCOUNTER → 2019-10-20 12:23 | Outpatient (CLI) | payer MEDICARE, SELFPAY ==
[2019-10-20 12:56] LABS: International Normalized Ratio 2.7; Prothrombin Time (Protime)PT. 27.8 SECONDS (11.7-14.9)
== END ==
PROVIDERS: PCP Family Medicine; Referring Provider Family Medicine; Visit Provider Family Medicine
DX: Z79.01 Long term (current) 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 (principal)
CPT/HCPCS: 85610

== ENCOUNTER → 2019-12-01 12:23 | Outpatient (CLI) | payer MEDICARE, SELFPAY ==
[2019-12-01 12:56] LABS: International Normalized Ratio 2.6; Prothrombin Time (Protime)PT. 27.7 SECONDS (11.7-14.9)
== END ==
PROVIDERS: PCP Family Medicine; Referring Provider Family Medicine; Visit Provider Family Medicine
DX: Z79.01 Long term (current) 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 (principal)
CPT/HCPCS: 85610

== ENCOUNTER → 2019-12-29 | Outpatient (CLI) | payer MEDICARE, SELFPAY ==
[2019-12-29 13:38] LABS: International Normalized Ratio 3.1; Prothrombin Time (Protime)PT. 31.5 SECONDS (11.7-14.9)
== END | disposition home or self-care (01) ==
LOC: LABSPEC 12:30
PROVIDERS: PCP Family Medicine; Referring Provider Family Medicine; Visit Provider Family Medicine
DX: Z79.01 Long term (current) 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 (principal)
CPT/HCPCS: 85610

== ENCOUNTER → 2020-01-26 09:19 | Outpatient (CLI) | payer MEDICARE, SELFPAY ==
[2020-01-26 09:48] LABS: International Normalized Ratio 2.8; Prothrombin Time (Protime)PT. 29.4 SECONDS (11.7-14.9)
== END ==
PROVIDERS: PCP Family Medicine; Referring Provider Family Medicine; Visit Provider Family Medicine
DX: Z79.01 Long term (current) 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 (principal)
CPT/HCPCS: 85610

== ENCOUNTER → 2020-02-23 09:24 | Outpatient (CLI) | payer MEDICARE, SELFPAY ==
[2020-02-23 09:45] LABS: International Normalized Ratio 2.1
== END ==
PROVIDERS: PCP Family Medicine; Referring Provider Family Medicine; Visit Provider Family Medicine
DX: Z79.01 Long term (current) 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 (principal)
CPT/HCPCS: 85610

== ENCOUNTER → 2020-03-22 09:25 | Outpatient (CLI) | payer MEDICARE, SELFPAY ==
[2020-03-22 10:11] LABS: International Normalized Ratio 5.6; Prothrombin Time (Protime)PT. 50.7 SECONDS (11.7-14.9)
== END ==
PROVIDERS: PCP Family Medicine; Referring Provider Family Medicine; Visit Provider Family Medicine
DX: Z79.01 Long term (current) 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 (principal)
CPT/HCPCS: 85610

== ENCOUNTER → 2020-03-29 09:02 | Outpatient (CLI) | payer MEDICARE, SELFPAY ==
[2020-03-29 09:28] LABS: International Normalized Ratio 1.1; Prothrombin Time (Protime)PT. 13.5 SECONDS (11.7-14.9)
== END ==
PROVIDERS: PCP Family Medicine; Referring Provider Family Medicine; Visit Provider Family Medicine
DX: Z79.01 Long term (current) 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 (principal)
CPT/HCPCS: 85610

== ENCOUNTER → 2020-04-12 16:36 | Outpatient (CLI) | payer MEDICARE, SELFPAY ==
[2020-04-12 17:57] LABS: International Normalized Ratio 2.4; Prothrombin Time (Protime)PT. 26.1 SECONDS (11.7-14.9)
== END ==
PROVIDERS: PCP Family Medicine; Referring Provider Family Medicine; Visit Provider Family Medicine
DX: Z79.01 Long term (current) 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 (principal)
CPT/HCPCS: 85610

== ENCOUNTER → 2020-05-23 10:02 | Outpatient (CLI) | payer MEDICARE, SELFPAY ==
[2020-05-23 10:29] LABS: International Normalized Ratio 2.2; Prothrombin Time (Protime)PT. 23.8 SECONDS (11.7-14.9)
== END ==
PROVIDERS: PCP Family Medicine; Referring Provider Family Medicine; Visit Provider Family Medicine
DX: Z79.01 Long term (current) 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 (principal)
CPT/HCPCS: 85610

== ENCOUNTER → 2020-06-20 10:10 | Outpatient (CLI) | payer MEDICARE, SELFPAY ==
[2020-06-20 10:41] LABS: International Normalized Ratio 3.1; Prothrombin Time (Protime)PT. 31.4 SECONDS (11.7-14.9)
== END ==
PROVIDERS: PCP Family Medicine; Visit Provider Family Medicine
DX: Z79.01 Long term (current) 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 (principal)
CPT/HCPCS: 85610

== ENCOUNTER → 2020-07-18 09:30 | Outpatient (CLI) | payer MEDICARE, SELFPAY ==
[2020-07-18 09:47] LABS: International Normalized Ratio 2.1; Prothrombin Time (Protime)PT. 22.5 SECONDS (11.7-14.9)
== END ==
PROVIDERS: PCP Family Medicine; Visit Provider Family Medicine
DX: Z79.01 Long term (current) 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 (principal)
CPT/HCPCS: 85610

== ENCOUNTER → 2020-08-15 09:48 | Outpatient (CLI) | payer MEDICARE, SELFPAY ==
[2020-08-15 10:06] LABS: International Normalized Ratio 3.4; Prothrombin Time (Protime)PT. 33.5 SECONDS (11.7-14.9)
== END ==
PROVIDERS: PCP Family Medicine; Visit Provider Family Medicine
DX: Z79.01 Long term (current) 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 (principal)
CPT/HCPCS: 85610

== ENCOUNTER → 2020-09-27 12:14 | Outpatient (CLI) | payer MEDICARE, SELFPAY ==
[2020-09-27 12:47] LABS: International Normalized Ratio 2.9; Prothrombin Time (Protime)PT. 29.4 SECONDS (11.7-14.9)
== END ==
PROVIDERS: PCP Family Medicine; Referring Provider Family Medicine; Visit Provider Family Medicine
DX: Z51.81 Encounter for therapeutic drug level monitoring (principal); Z79.01 Long term (current) 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
CPT/HCPCS: 85610

== ENCOUNTER → 2020-10-25 10:37 | Outpatient (CLI) | payer MEDICARE, SELFPAY ==
[2020-10-25 10:58] LABS: International Normalized Ratio 2.5; Prothrombin Time (Protime)PT. 26.4 SECONDS (11.7-14.9)
== END ==
PROVIDERS: PCP Family Medicine; Visit Provider Family Medicine
DX: Z51.81 Encounter for therapeutic drug level monitoring (principal); Z79.01 Long term (current) 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; I48.0 Paroxysmal atrial fibrillation
CPT/HCPCS: 85610

== ENCOUNTER → 2020-11-22 09:52 | Outpatient (CLI) | payer MEDICARE, SELFPAY ==
[2020-11-22 10:13] LABS: International Normalized Ratio 2.6; Prothrombin Time (Protime)PT. 27.2 SECONDS (11.7-14.9)
== END ==
PROVIDERS: PCP Family Medicine; Visit Provider Family Medicine
DX: Z51.81 Encounter for therapeutic drug level monitoring (principal); Z79.01 Long term (current) 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; I48.0 Paroxysmal atrial fibrillation
CPT/HCPCS: 85610

== ENCOUNTER → 2020-12-20 12:41 | Outpatient (CLI) | payer MEDICARE, SELFPAY ==
[2020-12-20 13:26] LABS: International Normalized Ratio 2.2; Prothrombin Time (Protime)PT. 23.3 SECONDS (11.7-14.9)
== END ==
PROVIDERS: PCP Family Medicine; Visit Provider Family Medicine
DX: Z51.81 Encounter for therapeutic drug level monitoring (principal); Z79.01 Long term (current) 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; I48.0 Paroxysmal atrial fibrillation
CPT/HCPCS: 85610

== ENCOUNTER → 2021-01-17 12:10 | Outpatient (CLI) | payer MEDICARE, SELFPAY ==
[2021-01-17 12:35] LABS: International Normalized Ratio 2.7; Prothrombin Time (Protime)PT. 28.2 SECONDS (11.7-14.9)
== END ==
PROVIDERS: PCP Family Medicine; Visit Provider Family Medicine
DX: Z51.81 Encounter for therapeutic drug level monitoring (principal); Z79.01 Long term (current) 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; I48.0 Paroxysmal atrial fibrillation
CPT/HCPCS: 85610

== ENCOUNTER 2021-02-10 07:25 | Inpatient (IN) | payer MEDICARE, SELFPAY ==
[2021-02-10] VITALS (12 sets, daily range): BP systolic 113–141; BP diastolic 57–89; PULSE 78–84; RESP 18–23; TEMP 37–37.9; O2SAT 92–95; BMI 24.2; BMI 23.0
--- NOTE | 2021-02-10 07:37 | EKG12_ITS ---
Test Reason : WEAKNESS Blood Pressure : / mmHG Vent. Rate : 090 BPM Atrial Rate : 090 BPM P-R Int : 232 ms QRS Dur : 134 ms QT Int : 410 ms P-R-T Axes : 078 -40 019 degrees QTc Int : 501 ms Sinus rhythm with marked sinus arrhythmia with 1st degree A-V block Left axis deviation Right bundle branch block Abnormal ECG Confirmed by BILLY POLANCO, JENSEN ([id number]), research editor GUS STRINGER ([id number]) on 02/11/2021 1:53:24 PM Referred By: VIDAL Confirmed By:JENSEN CERVANTES MD
--- NOTE | 2021-02-10 07:37 | RAD_ITS ---
EXAM: XR CHEST, 2 VIEWS CLINICAL INDICATION: Ill-defined infiltrates in the left mid lung. Mild pulmonary hyperinflation with flattening of the hemidiaphragms. TECHNIQUE: Frontal and lateral views of the chest. This report was created using [employer] report generation technology. COMPARISON: None. FINDINGS: LUNGS AND PLEURAL SPACES: Unremarkable. No consolidation or edema. No pneumothorax. No effusion. HEART: Unremarkable. Cardiac silhouette not enlarged. MEDIASTINUM: Central airways and mediastinal contour are unremarkable. BONES/JOINTS: Unremarkable. SOFT TISSUES: Unremarkable. RAD/Chest PA and Lateral IMPRESSION: 1. Suspicious interstitial pneumonitis in the left midlung. 2. Mild COPD. Electronically Signed: Yoan Mcfadden MD at 8:37 EST , Service support ,
--- NOTE | 2021-02-10 07:38 | EX.ED.DYSGE1 ---
HPI History of Present Illness Chief Complaint: Weakness Informant: patient and spouse/S.O. Onset/Context/Timing Onset: Weeks (Onset of illness 2 weeks ago per ) Context: Sudden Onset Timing: Intermittent Quality: Generalized weakness and respiratory symptoms Location: Not applicable Current Severity: Mild Maximum Severity: Moderate Worsened by: Uncertain Relieved by: Nothing Associated Symptoms Associated Symptoms: Per HPI Narrative Narrative: Patient is an elderly male who has history of hypertension, hypercholesterolemia, A. fib, coronary artery disease who became ill approximately 2 weeks ago. According to he felt much better on Thursday. He celebrated Thanksgiving with family yesterday. states until yesterday he has not been eating well. He denies loss of taste or smell. He is not certain why he has no appetite. states he did have cough and congestion. He was told that he does not have Covid since he does not have a fever. He has had several falls. He fell because of generalized weakness going to the restroom earlier this morning. He and his denied head trauma. He denies loss of conscious. He presently denies headache. He denies any visual, ocular auditory symptoms. He denies neck pain. He denies cardiac symptoms. He denies any respiratory symptoms presently. He denies GI symptoms. He denies urologic symptoms. He denies hematuria. He denies hematemesis, melena medic easier. He apparently is on Coumadin for atrial fibrillation. He may have had a stroke in the past as well. Prior similar symptoms: No Recent Illness/Hospitalization: Yes [facility] Home Medications aspirin 81 mg PO DAILY 10/06/17 [History Last Taken 10/06/17] fosinopril 20 mg PO DAILY 10/06/17 [History Last Taken 10/05/17] simvastatin 80 mg PO DAILY 10/06/17 [History Last Taken 10/05/17] warfarin 2.5 mg PO DAILY 10/06/17 [History Last Taken 10/06/17] Allergy/AdvReac Type Severity Reaction Status Date / Time No Known Allergies Allergy Verified 10/06/17 15:57 Social History (Updated 02/10/21 @ 07:[address] Riaz Marrero MD) household members: spouse Smoking Status: Never smoker substance use type: does not use ROS ROS ED Constitutional Constitutional ED: Denies chills, fever(s), subjective, sweats or weight loss Eyes Eyes: Denies blurry vision, change in vision or diplopia ENT ENT ED: Reports rhinorrhea; Denies ear pain or sore throat Cardiovascular Cardiovascular: Denies chest pain, orthopnea, palpitations, paroxysmal nocturnal dyspnea or racing heartbeat Respiratory/Chest Respiratory/Chest: Reports cough, dyspnea and sputum; Denies dyspnea on exertion, orthopnea or paroxysmal nocturnal dyspnea Gastrointestinal Gastrointestinal: Denies abdominal pain, constipation, diarrhea, melena, nausea or vomiting Genitourinary Genitourinary ED: Denies dysuria, hematuria or urinary frequency Musculoskeletal Musculoskeletal: Denies arthralgias, myalgias or neck pain Integumentary Denies rash Neurologic Neurologic: Reports weakness; Denies headache(s) or paresthesias Endocrine Endocrinology: Denies polydipsia, polyphagia or polyuria Hematologic/Lymphatic Hematologic/Lymphatic: Reports easy bruising; Denies anemia or easy bleeding EXAM Physical Exam Const Vital Signs: 02/10/21 07:26 02/10/21 07:30 02/10/21 07:31 Temperature 99.1 F 99.1 F Temperature Source Oral Oral Pulse Rate 84 84 Respiratory Rate 20 H 20 H Respiratory Effort Normal Non-Labored Respiratory Pattern Normal Blood Pressure 125/78 H 125/78 H Blood Pressure Mean 93 93 Pulse Ox 92 92 Oxygen Delivery Method Room Air Room Air 02/10/21 08:53 02/10/21 09:00 Temperature 99.1 F 99.1 F Temperature Source Oral Oral Pulse Rate 83 83 Respiratory Rate 22 H 22 H Respiratory Effort Respiratory Pattern Blood Pressure 121/57 H 121/57 H Blood Pressure Mean 78 78 Pulse Ox 93 93 Oxygen Delivery Method Room Air Room Air Positive well nourished and well developed General Appearance ED: well developed and NAD; Negative for cyanotic, diaphoretic or pallor HEENT Reports dry mucous membranes HEENT Narrative: Bilateral hearing aids. Uvula midline. There is no erythema or exudate. Negative for trauma or tenderness Mouth ED: Yes dry mucous membranes Mouth: dry mucous membranes Eyes PERRL and EOMs intact bilaterally General Eye ED: Negative for pale conjunctiva or scleral icterus Neck no lymphadenopathy, supple and no JVD General: Negative for tenderness Resp normal respiratory effort and No clear to auscultation bilaterally Resp Narrative: Patient has adventitial breath sounds bilaterally. Effort and Inspection: pain with movement Cardio regular rate and no murmurs Rhythm: abnormal rhythm GI normal to inspection, nondistended, normoactive bowel sounds and non-tender Palpation: soft Back/Spine no CVA tenderness Cervical Spine: Negative for cervical spine tenderness Thoracic Spine / Upper Back: Negative for thoracic spinal tenderness or paraspinal muscle tenderness Neuro No oriented x3 and CN's II-XII intact bilaterally Sensorium / Orientation: alert and orientation impaired Motor Exam: strength 5/5 throughout and general weakness Psych Psych Narrative: Affect is flat Skin no rashes or lesions noted and no wounds General Skin Exam: Negative for jaundice or pallor MDM MDM MDM Narrative Medical decision making narrative: Patient has vague generalized symptoms. This may represent Covid, metabolic or infectious etiology. Will obtain appropriate blood work to assess for anemia, renal function, urinary tract infection. Chest x-ray is obtained because of abnormal respiratory sounds and the fact that he has been ill for 2 weeks with respiratory symptoms according to the . Patient only has 1 SIRS criteria. With generalized weakness frequent recent falls, increased confusion (which may represent infectious cephalopathy) and community-acquired pneumonia will contact hospitalist for observation versus full admission for IV antibiotics. Respiratory rate is now elevated. Patient does have 2 sirs criteria. Lab Data Attestation: I reviewed the patient's lab results. Lab results narrative: White count is elevated. Because white count is elevated blood cultures were obtained. After reviewing chest x-rays antibiotics were ordered for commune acquired pneumonia. This may represent Covid pneumonia. Since his symptoms started greater than 2 weeks ago Covid PCR was obtained. Lactate is elevated. Labs: Laboratory Results - last 24 hr 02/10/21 02/10/21 02/10/21 07:10 07:10 07:51 WBC 16.1 H RBC 5.40 Hgb 16.1 Hct 48.5 MCV 89.8 MCH 29.8 MCHC 33.2 RDW Std Deviation 42.1 RDW Coeff of Boom 12.9 Plt Count 258 MPV 9.4 Immature Gran % (Auto) 0.400 Neut % (Auto) 93.3 H Lymph % (Auto) 2.2 L Graves % (Auto) 3.7 Eos % (Auto) 0.1 Baso % (Auto) 0.3 Absolute Neuts (auto) 15.0 H Absolute Lymphs (auto) 0.36 L Nucleated RBC % 0 PT INR Sodium 139 Potassium 3.7 Chloride 105 Carbon Dioxide 28.0 Anion Gap 6 BUN 15 Creatinine 0.85 Estim Creat Clear Calc 69.74 Est GFR (MDRD) Af Amer 111 Est GFR (MDRD) Non-Af 91 BUN/Creatinine Ratio 17.7 Glucose 148 H Lactic Acid 2.1 H* Calcium 8.9 Total Bilirubin 1.10 H AST 34 ALT 49 Alkaline Phosphatase 147 H Total Protein 7.2 Albumin 3.6 Globulin 3.6 Albumin/Globulin Ratio 1.0 02/10/21 02/10/21 07:51 08:08 WBC RBC Hgb Hct MCV MCH MCHC RDW Std Deviation RDW Coeff of Boom Plt Count MPV Immature Gran % (Auto) Neut % (Auto) Lymph % (Auto) Graves % (Auto) Eos % (Auto) Baso % (Auto) Absolute Neuts (auto) Absolute Lymphs (auto) Nucleated RBC % PT Cancelled 29.0 H INR Cancelled 2.8 Sodium Potassium Chloride Carbon Dioxide Anion Gap BUN Creatinine Estim Creat Clear Calc Est GFR (MDRD) Af Amer Est GFR (MDRD) Non-Af BUN/Creatinine Ratio Glucose Lactic Acid Calcium Total Bilirubin AST ALT Alkaline Phosphatase Total Protein Albumin Globulin Albumin/Globulin Ratio Radiography Chest X-Ray - ED: 2 View and Read by ED Physician (Patchy interstitial infiltrates on the left question on the right. There is a comparison view from 2017; however, unable to retrieve. Looking at the thumbnail these changes appear to be new. X-ray was interpreted by me at 0834) Diagnostic Testing: Clinical Impression(s) from Imaging Studies Chest X-Ray 02/10/21 07:37 IMPRESSION: 1. Suspicious interstitial pneumonitis in the left midlung. 2. Mild COPD. Electronically Signed: Yoan Mcfadden MD at 8:37 EST , Service support , EKG Initial EKG: Attestation: I personally reviewed and interpreted this EKG as follows: Interpretation: Sinus Rhythm (Ventricular rate is 90. There is premature atrial beats noted with first-degree AV block. MT interval is 232 ms. Cures duration 134 ms. QT duration 410 ms. [place] to the left. Patient QRS morphology is consistent with a right bundle branch block.) Discharge Plan Dx/Rx/DC Orders Clinical Impression: Community acquired pneumonia, Acidosis, lactic, Anticoagulant long-term use, Hyperglycemia Disposition Disposition: Acute Care Hospital [facility]
[2021-02-10 07:45] LABS: Absolute Lymphocyte Count 0.36 X10^3/uL (0.83-4.51); Basophil# 0.05 X10^3/uL; Basophil% 0.3 % (0-1); Eosinophil# 0.02 X10^3/uL; Eosinophils% 0.1 % (0-5); Hematocrit 48.5 % (40-54); Hemoglobin 16.1 g/dL (13.0-16.5); Lymphocyte # 0.36 X10^3/ul (0.83-4.51); Lymphocyte % 2.2 % (19-41); Mean Corp Hgb Conc 33.2 g/dL (32-36); Mean Corpuscular Hgb 29.8 pg (27.0-32.0); Mean Corpuscular Volume 89.8 fL (80-94); Mean Platelet Vol. 9.4 fl (6.2-12.0); Monocyte% 3.7 % (0-10); NRBC Flagged by Analyzer 0 % (0-5); Neutrophil % 93.3 % (47-70); POSITIVE DIFFERENTIAL YES; Platelet Count 258 K/mm3 (150-450); RBC Distribution Width CV 12.9 % (11.6-14.6); RBC Distribution Width SD 42.1 fl (35.1-43.9); White Blood Count 16.1 K/mm3 (4.4-11.0)
[2021-02-10 07:47] LABS: Differential Indicated SCAN CRITERIA MET
[2021-02-10 07:58] LABS: AST(SGOT) 34 U/L (15-37); Alanine Aminotransfer ALT/SGPT 49 U/L (16-61); Albumin, Serum 3.6 g/dL (3.2-5.0); Alkaline Phosphatase 147 U/L (45-117); Anion Gap 6 (5-15); BUN 15 mg/dL (7-18); BUN/Creat Ratio 17.7 RATIO (10-20); Calcium,Total 8.9 mg/dL (8.5-10.1); Chloride 105 mmol/L (98-107); Creatinine, Serum 0.85 mg/dL (0.70-1.30); EST Glomerular Filtration Rate 91 mL/min (>60); Est Glom Filt Rate - Afr Amer 111 mL/min (>60); Estimated Creatinine Clearance 69.74 ml/min; Globulin 3.6 g/dL (2.2-4.2); Glucose 148 mg/dL (74-106); Potassium 3.7 mmol/L (3.5-5.1); Protein, Total 7.2 g/dL (6.4-8.2); Sodium Level 139 mmol/L (136-145)
[2021-02-10 08:31] LABS: International Normalized Ratio 2.8
[2021-02-10 08:39] LABS: Lactic Acid 2.1 mmol/L (0.4-1.9)
--- NOTE | 2021-02-10 09:30 | PCM.HP.STD ---
HPI - General General Date of Admission: 02/10/21 HPI Narrative He was saturating 93% on pressure of 121/57, pulse rate of 53 and respiratory of 22 with temperature of 99.1 Fahrenheit.Vitals were bloodCLAXEL HOPSON, is a 85 M with an extensive PMH as outlined who was admitted with a complaint of progressively worsening weakness. Patient apparently became ill ~ 2 weeks ago, and had not been eating or drinking well. He has also been falling at home. He denied any fever or chills, nausea or vomiting or diarrhea. He also had mild confusion and cough and congestion. He denied any chest pain, palpitations, dizziness, nausea or vomiting. Review of systems was otherwise negative. Vitals where pulse rate of 83, blood pressure of 121/57 and respiratory rate of 22 and he was saturating at 93% on room air. CBC showed WBC of 16.1 and hemoglobin of 16.1 as well as platelets of 258. Chemistry was essentially unremarkable and lactic acid was 2.1. Chest x-ray showed ill-defined infiltrates in the left midlung with mild pulmonary hyperinflation with flattening of the hemidiaphragms. Covid PCR was pending. He has been admitted to be managed for sepsis due to pneumonia and probable Covid. [facility] Home Medications aspirin 81 mg PO DAILY 10/06/17 [History Last Taken 10/06/17] fosinopril 20 mg PO DAILY 10/06/17 [History Last Taken 10/05/17] simvastatin 80 mg PO DAILY 10/06/17 [History Last Taken 10/05/17] warfarin 2.5 mg PO DAILY 10/06/17 [History Last Taken 10/06/17] Allergy/AdvReac Type Severity Reaction Status Date / Time No Known Allergies Allergy Verified 10/06/17 15:57 Social History (Updated 02/10/21 @ 07:[address] Riaz Marrero MD) household members: spouse Smoking Status: Former smoker substance use type: does not use ROS Constitutional Constitutional: Reports anorexia, fatigue, malaise and weakness; Denies change in weight, chills or fever(s) Eyes Eyes: Denies change in vision ENT HEENT: Reports nasal congestion and nasal discharge; Denies dysphagia Cardiovascular Cardiovascular: Reports syncope; Denies chest pain, dyspnea on exertion, edema, lightheadedness, orthopnea, palpitations, paroxysmal nocturnal dyspnea or rapid heart rate Respiratory/Chest Respiratory/Chest: Reports cough, dyspnea and wheezing; Denies excessive phlegm production, hemoptysis, productive cough, shortness of breath at rest or shortness of breath with exertion Gastrointestinal Gastrointestinal: Denies abdominal pain, diarrhea, nausea or vomiting Genitourinary Genitourinary: Denies burning urination, dysuria or urinary frequency Musculoskeletal Musculoskeletal: Denies joint pain, joint stiffness or joint swelling Neurologic Neurologic: Reports confusion; Denies dizziness, focal weakness, headache(s), numbness or seizure-like activity Psychiatric Psychiatric: Denies anxiety Endocrine Endocrinology: Denies change in body appearance Hematologic/Lymphatic Hematologic/Lymphatic: Denies anemia Vital Signs Vital Signs Vital Signs: 02/10/21 07:26 02/10/21 07:30 02/10/21 07:31 Temperature 99.1 F 99.1 F Temperature Source Oral Oral Pulse Rate 84 84 Respiratory Rate 20 H 20 H Respiratory Effort Normal Non-Labored Respiratory Pattern Normal Blood Pressure 125/78 H 125/78 H Blood Pressure Mean 93 93 Pulse Ox 92 92 Oxygen Delivery Method Room Air Room Air 02/10/21 08:53 02/10/21 09:00 Temperature 99.1 F 99.1 F Temperature Source Oral Oral Pulse Rate 83 83 Respiratory Rate 22 H 22 H Respiratory Effort Respiratory Pattern Blood Pressure 121/57 H 121/57 H Blood Pressure Mean 78 78 Pulse Ox 93 93 Oxygen Delivery Method Room Air Room Air Weight Weight: 178 lb 9.191 oz Body Mass Index (BMI) 24.2 Physical Exam Const alert and oriented x3 General Appearance: cooperative Orientation / Consciousness: lethargic HEENT normocephalic, head/scalp atraumatic and hearing grossly normal bilaterally Eyes PERRL, EOMs intact bilaterally and conjunctivae normal Neck no lymphadenopathy Resp Resp Narrative: diminished breath sounds bibasally, no wheezes or crackles. on room air. tachypneic Cardio regular rate, regular rhythm, S1 normal heart sound and S2 normal heart sound GI normal to inspection, nondistended, normoactive bowel sounds, soft to palpation, non-tender and non-distended Extremity normal to inspection, full ROM and no clubbing, cyanosis or edema Peripheral Pulses: Yes pulses 2+ throughout Skin no rashes or lesions noted Neuro oriented x3, CN's II-XII intact bilaterally and moves all extremities Sensorium / Orientation: awake and alert Psych affect normal Results Lab / Micro Data Result Diagrams: 02/10/21 07:10 02/10/21 07:10 Labs: Laboratory Results - last 24 hr 02/10/21 07:10: WBC 16.1 H, RBC 5.40, Hgb 16.1, Hct 48.5, MCV 89.8, MCH 29.8, MCHC 33.2, RDW Std Deviation 42.1, RDW Coeff of Boom 12.9, Plt Count 258, MPV 9.4, Immature Gran % (Auto) 0.400, Neut % (Auto) 93.3 H, Lymph % (Auto) 2.2 L, [facility] % (Auto) 3.7, Eos % (Auto) 0.1, Baso % (Auto) 0.3, Absolute Neuts (auto) 15.0 H, Absolute Lymphs (auto) 0.36 L, Nucleated RBC % 0 02/10/21 07:10: Sodium 139, Potassium 3.7, Chloride 105, Carbon Dioxide 28.0, Anion Gap 6, BUN 15, Creatinine 0.85, Estim Creat Clear Calc 69.74, Est GFR (MDRD) Af Amer 111, Est GFR (MDRD) Non-Af 91, BUN/Creatinine Ratio 17.7, Glucose 148 H, Calcium 8.9, Total Bilirubin 1.10 H, AST 34, ALT 49, Alkaline Phosphatase 147 H, Total Protein 7.2, Albumin 3.6, Globulin 3.6, Albumin/Globulin Ratio 1.0 02/10/21 07:51: Lactic Acid 2.1 H* 02/10/21 07:51: PT Cancelled, INR Cancelled 02/10/21 08:08: PT 29.0 H, INR 2.8 Radiology Impression Chest X-Ray 02/10/21 07:37 IMPRESSION: 1. Suspicious interstitial pneumonitis in the left midlung. 2. Mild COPD. Electronically Signed: Yoan Mcfadden MD at 8:37 EST , Service support , Assessment & Plan Assessment/Plan (1) Community acquired pneumonia: (2) Acidosis, lactic: PLAN: #Debility and weakness due to community acquired pneumonia admit to PCU with telemetry hydrate gently with IVF start on IV ceftriaxone and azithromycin get sputum and blood cultures consult PT/OT fall precautions covid test pending #Sepsis due to community acquired pneumonia as above #Lactic acidosis: Likely due to community-acquired pneumonia. Should improve with hydration. #Atrial fibrillation: Not on any rate limiting all antiarrhythmic medication. On Coumadin. #Hyperlipidemia: Continue statins #Benign essential hypertension: On fosinopril #Coronary artery disease: On aspirin and fosinopril DVT prophylaxis: On Coumadin. Check INR. CODE STATUS: Full code Patient and significant other counseled extensively about different types of CODE STATUS including full code, DNR CCA and DNR CCA. Per significan other, she is unable to make decisions for him if he is incapacitated and that would fall on his daughters to make those decisions. Patient is alert and oriented now and elects to be full code. Total [id number] time 16 minutes. Charges/Coding Visit Charges Inpatient E&M: 30946 Init Hosp L3 Procedures Hospitalists Procedures: 91029 Advncd Care Plan 30 Min
--- NOTE | 2021-02-10 09:32 | NURSING ---
DR BARBARA WERNER
--- NOTE | 2021-02-10 09:58 | NURSING ---
MED SURG [facility] PNEUMONIA, ENCEPHALOPATHY, LACTIC ACIDOSIS
[2021-02-10 11:56] LABS: Reflex Lactate? Y
[2021-02-10 12:44] LABS: Troponin-I HS 16 pg/mL (3.0-78.0)
[2021-02-10 12:49] LABS: Lactic Acid 1.9 mmol/L (0.4-1.9)
[2021-02-10] MEDS: Aspirin E.C. 81 MG Tablet PO (13:40)
[2021-02-10] MEDS: 0.9% Normal Saline 1,000 ML 125 ML IV ×2 (13:40→20:39)
[2021-02-10 14:27] LABS: Troponin-I HS 17 pg/mL (3.0-78.0)
[2021-02-10 18:18] LABS: Troponin-I HS 17 pg/mL (3.0-78.0)
[2021-02-10] MEDS: Ceftriaxone 1 GM/50 ML BAG IV (20:39)
[2021-02-11 00:20] LABS: Mucous, Urine 0 SEEN /hpf (<or=2+); Red Blood Cells-Urine 0 SEEN /hpf (0-5); Squamous Epithelial Cells - UA 0 SEEN /hpf (0-5); White Blood Cells 0 SEEN /hpf (0-5)
[2021-02-11 00:21] LABS: Color, Urine Yellow (Yellow); Glucose, Dipstick Normal (Normal); Ketone-Dipstick Negative (Negative); Leukocyte Esterase-Dipstick Negative /ul (Negative); Nitrite-Dipstick Negative (Negative); Occult Blood-Urine Negative /ul (Negative); Protein-Dipstick Negative (Negative); Specific Gravity, Urine 1.015 (1.002-1.030); Urine Bilirubin Dipstick Negative (Negative); Urine Clarity Clear (Clear); Urine Urobilinogen 1 mg/dl (Normal)
[2021-02-11 00:34] LABS: Bacteria 1+ /hpf (None Seen)
[2021-02-11 03:00] VITALS: PULSE 76
[2021-02-11 03:45] VITALS: BP 140/82; PULSE 80; RESP 16; TEMP 36.4; O2SAT 96
[2021-02-11] MEDS: 0.9% Normal Saline 1,000 ML 125 ML IV (05:06)
[2021-02-11 06:02] LABS: Absolute Lymphocyte Count 1.02 X10^3/uL (0.83-4.51); Absolute Neutrophil Count 11.6 X10^3/uL (2.0-7.7); Basophil# 0.06 X10^3/uL; Basophil% 0.4 % (0-1); Eosinophil# 0.04 X10^3/uL; Eosinophils% 0.3 % (0-5); Hematocrit 39.4 % (40-54); Hemoglobin 12.9 g/dL (13.0-16.5); Lymphocyte # 1.02 X10^3/ul (0.83-4.51); Lymphocyte % 7.4 % (19-41); Mean Corp Hgb Conc 32.7 g/dL (32-36); Mean Corpuscular Hgb 29.9 pg (27.0-32.0); Mean Corpuscular Volume 91.2 fL (80-94); Mean Platelet Vol. 9.7 fl (6.2-12.0); Monocyte# 0.96 X10^3/uL; NRBC Flagged by Analyzer 0 % (0-5); Neutrophil # 11.61 X10^3/uL (2.7-7.7); Neutrophil % 84.4 % (47-70); Platelet Count 223 K/mm3 (150-450); RBC Distribution Width CV 12.9 % (11.6-14.6); RBC Distribution Width SD 43.1 fl (35.1-43.9); Red Blood Count 4.32 M/mm3 (4.6-6.2); White Blood Count 13.8 K/mm3 (4.4-11.0)
[2021-02-11 06:33] VITALS: PULSE 91
[2021-02-11 06:49] LABS: Anion Gap 5 (5-15); BUN 12 mg/dL (7-18); BUN/Creat Ratio 23.6 RATIO (10-20); Calcium,Total 8.4 mg/dL (8.5-10.1); Chloride 107 mmol/L (98-107); Creatinine, Serum 0.51 mg/dL (0.70-1.30); EST Glomerular Filtration Rate 165 mL/min (>60); Est Glom Filt Rate - Afr Amer 199 mL/min (>60); Estimated Creatinine Clearance 58.82 ml/min; Glucose 93 mg/dL (74-106); Potassium 3.6 mmol/L (3.5-5.1); Sodium Level 138 mmol/L (136-145)
[2021-02-11 07:33] VITALS: O2SAT 91
[2021-02-11 09:26] VITALS: BP 152/79; PULSE 66; RESP 18; TEMP 36.6; O2SAT 96
[2021-02-11] MEDS: Atorvastatin Calcium 40 MG Tablet PO (09:43)
[2021-02-11] MEDS: Aspirin E.C. 81 MG Tablet PO (09:44)
[2021-02-11] MEDS: Ceftriaxone 1 GM/50 ML BAG IV (09:44)
[2021-02-11] MEDS: Lisinopril 20 MG Tablet PO (09:44)
[2021-02-11 10:30] VITALS: O2SAT 91; O2SAT 94
--- NOTE | 2021-02-11 11:20 | CASEMGMT ---
EMILY YATES assessment: Face to Face with patient for initial transition planning/care coordination assessment. EMILY YATES introduced self and role at [facility], pt voices understanding and consents to assessment. Pt is sitting up in chair in no distress on room air. Pt is A/Ox4 and answers all questions appropriately. Care providers, pharmacy, and demographics verified/updated. Presentation: C/O fall last pm in bathroom and unable to get up, low pulse ox for EMS Admitting dx: Sepsis, CAP PCP: [facility] Specialists: Pt states no current specialists. [facility]erred [facility]acy: [facility] Insurance: [employer] Prescription Benefit: [employer] Living Will/HPOA: Pt states has LW/HPOA and sig other did bring them into be copied and placed on chart. Pt's daughter, Blanca Julian, is HPOA. LNOK: Blanca Julian, daughter/HPOA; Maria Guadalupe Salguero, sig other Living Arrangements: Pt lives with sig other in mobile home with 5 [address] in and states no concerns at home. Pt is independent with ADL's. Transportation: Pt states sig other drives and states no transportation concerns. DME/HHC: Pt states no current DME or need for any DME. Pt states no hx of HHC or SNF. Pt states no concerns with going home at time of discharge. Pt is retired. Pt states does not smoke cigarettes but does drink ETOH rarely. Pt voices no further concerns/needs. CM to follow for any further discharge planning/needs. Advised pt to ask for CM if any further questions/concerns/needs arise, voices understanding. Pt Goal: Home Plan[place] EMILY YATES
--- NOTE | 2021-02-11 12:33 | PCM.DC.SUM ---
Providers Date of Admission: 02/10/21 Primary Care Physician: Dr. Joseph Mora MD Reason For Visit: SEPSIS, COMMUNITY AQUIRED PNEUMONIA Diagnosis Discharge Diagnosis (1) Community acquired pneumonia: Status: Acute Code(s): J18.9 - Pneumonia, unspecified organism (2) Acidosis, lactic: Status: Acute Code(s): E87.2 - Acidosis Medications at Discharge Home Medications aspirin 81 mg PO DAILY 10/06/17 fosinopril 20 mg PO DAILY 10/06/17 simvastatin 80 mg PO DAILY 10/06/17 warfarin 2.5 mg PO DAILY 10/06/17 amoxicillin-pot clavulanate [Augmentin XR] 1 tab PO Q12H #12 tab 02/11/21 Hospital Course Operations None Procedures None Summary of Care Provided Minutes Spent on Discharge: 35 Hospital Course: Mr. Flores is an 85-year-old white male who presented to the emergency department [facility] on 02/10/2021 with a chief complaint of generalized weakness and respiratory symptoms. Evidently the patient became ill approximately 2 weeks prior to presentation but he felt much better on the Thursday prior to presenting to the hospital. He had celebrated Thanksgiving with his family the day prior to presentation and his reported up until the day prior to presentation he had not been eating well. The patient did have some cough and congestion as well as generalized weakness. He had a fall on the day of admission while going to the restroom secondary to this weakness. Given his course a COVID-19 PCR was performed and was found to be negative. His chest x-ray done on admission showed evidence of an infiltrate in the left midlung as well as mild COPD. On admission he had an elevated white count at 16.1 with a left shift. His BMP was overall unremarkable other than a mildly elevated total bilirubin at 1.0 and elevated lactic acid at 2.1. His cardiac enzymes were cycled and were found to be negative x3. His lactic acid corrected very quickly and within 3 hours of presentation corrected to baseline. Sepsis had been documented but has been ruled out. Blood cultures were obtained and were negative at 48 hours. He was treated for community-acquired pneumonia with azithromycin and ceftriaxone. Urine Legionella and strep pneumo antigens were done and were negative. I reevaluated the patient on 02/11/2021 he reported that he was feeling much better and was anxious to go home. He was seen by physical therapy and Occupational Therapy and was able to ambulate to the bathroom with only standby assist having a steady gait without the use of any supportive devices. He had multiple directional changes without loss of balance and only had mild shortness of breath. On admission he was placed on 2 L nasal cannula and had stable oxygen saturations. Upon my exam he was weaned to room air and had an oxygen saturation of 94%. Given his desire to go home we did ambulate him without oxygen and his oxygen saturation only dropped to 91%. He had not been able to produce a sputum and therefore sputum culture was not obtained. Given his symptoms we will discharge him on Augmentin to complete a 7-day course and I did recommend follow-up with his PCP in 1 week for reevaluation. I encouraged him to represent to the hospital if his symptoms got any worse given the fact he improved faster than we anticipated him to do so on admission. He was discharged home on 02/11/2021 in stable condition. Discharge diagnoses: Community-acquired pneumonia Sepsis-ruled out Leukocytosis Mild lactic acidosis-resolved Hypertension Hyperlipidemia Paroxysmal atrial fibrillation CAD Physical Exam Const alert, oriented x3, no apparent distress and average body habitus Constitutional Narrative: Older white male who appears younger than stated age, sitting up in a chair at the bedside, watching television, currently on room air, states he feels well and would like to go home General Appearance: cooperative, comfortable, well kempt and well developed Orientation / Consciousness: awake Exam Limitations: no limitations HEENT normocephalic, head/scalp atraumatic and moist oral mucous membranes; Negative for dentition normal HEENT Narrative: Mildly hard of hearing, no thrush, Mallampati 2 Eyes PERRL, EOMs intact bilaterally and conjunctivae normal Eyes Narrative: No scleral icterus Neck no lymphadenopathy, supple and no JVD Neck Narrative: Trachea midline Resp normal respiratory effort, no retractions, no use of accessory muscles and clear to auscultation bilaterally Resp Narrative: Few scattered end expiratory wheezes that improved with cough to clear Auscultation: wheezes; Negative for crackles, rales or rhonchi Cardio regular rate, regular rhythm, S1 normal heart sound, S2 normal heart sound, no murmurs, no rub, no gallops, no clicks and no JVD GI normal to inspection, nondistended, normoactive bowel sounds, soft to palpation, non-tender and non-distended Extremity no clubbing, cyanosis or edema Skin no rashes or lesions noted, no wounds, skin turgor normal and no jaundice Neuro oriented x3, CN's II-XII intact bilaterally, moves all extremities and no focal motor deficits Neuro Narrative: Mild generalized weakness proximal greater than distal Sensorium / Orientation: awake and alert Speech: speech normal Psych affect normal Psych Narrative: Extremely pleasant Weight / BMI Weight Weight: 77 kg Body Mass Index (BMI) 23.0 ABG / Lab / Microbiology Data Result Diagrams: 02/11/21 05:26 02/11/21 05:26 Laboratory: Laboratory Results - last 24 hr 02/10/21 12:15: Lactic Acid 1.9 02/10/21 12:15: Troponin I High Sens 16 02/10/21 14:00: Troponin I High Sens 17 02/10/21 17:45: Troponin I High Sens 17 02/10/21 23:55: Urine Color Yellow, Urine Clarity Clear, Urine pH 8.0, Ur Specific [place] 1.015, Urine Protein Negative, Urine Glucose (UA) Normal, Urine Ketones Negative, Urine Occult Blood Negative, Urine Nitrite Negative, Urine Bilirubin Negative, Urine Urobilinogen 1 H, Ur Leukocyte Esterase Negative, Urine RBC 0 SEEN, Urine WBC 0 SEEN, Ur Squamous Epith Cells 0 SEEN, Urine Bacteria 1+, Urine Mucus 0 SEEN 02/11/21 05:26: Sodium 138, Potassium 3.6, Chloride 107, Carbon Dioxide 26.0, Anion Gap 5, BUN 12, Creatinine 0.51 L, Estim Creat Clear Calc 58.82, Est GFR (MDRD) Af Amer 199, Est GFR (MDRD) Non-Af 165, BUN/Creatinine Ratio 23.6 H, Glucose 93, Calcium 8.4 L 02/11/21 05:26: WBC 13.8 H, RBC 4.32 L, Hgb 12.9 L, Hct 39.4 L, MCV 91.2, MCH 29.9, MCHC 32.7, RDW Std Deviation 43.1, RDW Coeff of [place] 12.9, Plt Count 223, MPV 9.7, Immature Gran % (Auto) 0.500, Neut % (Auto) 84.4 H, Lymph % (Auto) 7.4 L, [place] % (Auto) 7.0, Eos % (Auto) 0.3, Baso % (Auto) 0.4, Absolute Neuts (auto) 11.6 H, Absolute Lymphs (auto) 1.02, Nucleated RBC % 0 Microbiology: Microbiology 02/11/21 10:23 Urine, Clean Catch Streptococcus pneumoniae Antigen (M - Final 02/11/21 10:23 Urine Catheter - Catheter Legionella Antigen - Final 02/10/21 08:08 Blood Culture (Wb) - Right Hand Blood Culture - Preliminary No growth in 48 hours. 02/10/21 08:15 Blood Culture (Wb) - Left Forearm Blood Culture - Preliminary No growth in 48 hours. D/C Instructions Discharge Diet: Low fat / Low cholesterol Discharge Activity: Return to Normal Activity Meaningful Use Info Meaningful Use Diagnoses (Choose all that apply): None applicable Discharge Plan Admission Admit Date/Time: 02/10/21 09:52 Primary Reason for Your Visit: Weakness/respiratory symptoms Attending Provider: Marta Black Primary Care Provider: Joseph Mora Discharge Orders/Prescriptions Prescriptions: New amoxicillin-pot clavulanate [Augmentin XR] 1,000-62.5 mg tablet extended release 12 hr 1 tab PO Q12H Qty: 12 RF: 0 Continued fosinopril 40 MG tablet 20 mg PO DAILY RF: 0 simvastatin 80 MG tablet 80 mg PO DAILY RF: 0 warfarin 2.5 MG tablet 2.5 mg PO DAILY RF: 0 aspirin 81 MG tablet 81 mg PO DAILY RF: 0 Referrals / Follow Up: Joseph Mora MD [Primary Care Provider] - In 1 Week Disposition Disposition (needs filled in before D/C Order can be placed): Home, Self Care Charges/Coding Visit Charges Inpatient E&M: 89225 Disch Hosp
--- NOTE | 2021-02-11 15:16 | NURSING ---
This RN reviewed SN charting and was with SN during all medication administration
== END 2021-02-11 13:27 | disposition home or self-care (01) | DRG 194 ==
LOC: ED 08:47 → PCU 11:21
PROVIDERS: Admitting Provider Student in an Organized Health Care Education/Training Program; Emergency Provider Emergency Medicine; PCP Family Medicine; Visit Provider Internal Medicine
DX: J18.9 Pneumonia, unspecified organism (principal); E87.2 Acidosis; J44.0 Chronic obstructive pulmonary disease with (acute) lower respiratory infection; E78.5 Hyperlipidemia, unspecified; I10 Essential (primary) hypertension; I25.10 Atherosclerotic heart disease of native coronary artery without angina pectoris; Z66 Do not resuscitate; I48.0 Paroxysmal atrial fibrillation; I44.0 Atrioventricular block, first degree; Z79.01 Long term (current) 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; E78.00 Pure hypercholesterolemia, unspecified; Z79.82 Long term (current) use of aspirin; Z86.73 Personal history of transient ischemic attack (TIA), and cerebral infarction without residual deficits; Z87.891 Personal history of nicotine dependence
CPT/HCPCS: 36415; 71046; 80048; 80053; 81001; 83605; 84484; 85025; 85610; 87040; 87449; 87635; 93005; 97162; 97166; 99251; 99285; J7030; J7040; U0005; A4216; G0463; J0696; U0003

== ENCOUNTER → 2021-02-13 12:13 | Outpatient (CLI) | payer MEDICARE, SELFPAY ==
[2021-02-13 12:38] LABS: International Normalized Ratio 2.1; Prothrombin Time (Protime)PT. 22.9 SECONDS (11.7-14.9)
== END ==
PROVIDERS: PCP Family Medicine; Visit Provider Family Medicine
DX: Z51.81 Encounter for therapeutic drug level monitoring (principal); Z79.01 Long term (current) 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; I48.0 Paroxysmal atrial fibrillation
CPT/HCPCS: 85610

== ENCOUNTER → 2021-03-13 09:30 | Outpatient (CLI) | payer MEDICARE, SELFPAY ==
[2021-03-13 10:07] LABS: International Normalized Ratio 2.9; Prothrombin Time (Protime)PT. 29.9 SECONDS (11.7-14.9)
[2021-03-13 10:13] LABS: Cholesterol 206 mg/dL (200); High Density Lipoprotein 38 mg/dL; Triglycerides 193 mg/dL; Very Low Density Lipoprotein 39 mg/dL (5-40)
== END ==
PROVIDERS: PCP Family Medicine; Referring Provider Nurse Practitioner Family; Visit Provider Nurse Practitioner Family
DX: I25.10 Atherosclerotic heart disease of native coronary artery without angina pectoris (principal); Z51.81 Encounter for therapeutic drug level monitoring; Z79.01 Long term (current) 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; I48.0 Paroxysmal atrial fibrillation
CPT/HCPCS: 80061; 85610

== ENCOUNTER 2021-12-21 18:04 | Observation (INO) | payer MEDICARE, SELFPAY ==
[2021-12-21] VITALS (10 sets, daily range): BP systolic 156–185; BP diastolic 76–101; PULSE 66–81; RESP 16–18; TEMP 36.2–36.4; O2SAT 94–98; BMI 24.2; BMI 22.6
--- NOTE | 2021-12-21 18:09 | CT_ITS ---
EXAM: CT HEAD WITHOUT INTRAVENOUS CONTRAST CLINICAL INDICATION: Neuro deficit, acute, stroke suspected TECHNIQUE: Multiple axial images were obtained of the head without intravenous contrast. This CT exam was performed using one or more of the following dose reduction techniques: automated exposure control, adjustment of the mA and/or kV according to patient size, and/or use of iterative reconstruction technique. This report was created using [employer] report generation technology. 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 Low density regions in the brain may signify early microvascular ischemic changes, a demyelinating process, vasculitis, or sequela related to migraines. No intra- or extra-axial hemorrhage. No intracranial mass or mass effect. Posterior fossa structures are unremarkable. Ventricles are appropriate for age. No hydrocephalus. Basal cisterns are patent. BONES/JOINTS: Unremarkable. No discrete lytic or blastic abnormalities. VASCULATURE: There are calcifications around the cavernous carotid arteries. This is consistent for atherosclerotic disease. SINUSES: There is sinus disease. MASTOID AIR CELLS: Unremarkable. Clear. ORBITS: Visualized globes, extraocular muscles, optic nerves and retrobulbar fat appear unremarkable. CT/STROKE Brain/Head without Cont IMPRESSION: Chronic microvascular ischemic changes. N.B. : The above Results were Read Back by Noah Cardoza MD to JOSUE Richardson, and understanding confirmed on 12/21/2021 18:52:51 (ET). Electronically Signed: Noah Cardoza MD at 18:33 EDT ,
--- NOTE | 2021-12-21 18:09 | EKG12_ITS ---
Test Reason : STROKE Blood Pressure : / mmHG Vent. Rate : 071 BPM Atrial Rate : 071 BPM P-R Int : 184 ms QRS Dur : 124 ms QT Int : 432 ms P-R-T Axes : 077 -30 027 degrees QTc Int : 469 ms Sinus rhythm with Premature supraventricular complexes Left axis deviation Right bundle branch block Abnormal ECG Confirmed by BILLY POLANCO, JENSEN ([id number]), newspaper editor managing GUS STRINGER ([id number]) on 12/24/2021 12:39:26 PM Referred By: Confirmed By:JENSEN CERVANTES MD
--- NOTE | 2021-12-21 18:09 | NURSING ---
STROKE ALERT CALLED [phone]
--- NOTE | 2021-12-21 18:10 | CT_ITS ---
We are attempting to reach an attending provider to discuss findings. An addendum with communication details will be sent when the communication is complete. EXAM: CT ANGIOGRAPHY HEAD AND NECK WITH INTRAVENOUS CONTRAST CLINICAL INDICATION: Neuro deficit, acute, stroke suspected TECHNIQUE: [place]/head and neck CT angiography protocol performed with intravenous contrast. This CT exam was performed using one or more of the following dose reduction techniques: automated exposure control, adjustment of the mA and/or kV according to patient size, and/or use of iterative reconstruction technique. This report was created using [employer] report generation technology. MIP reconstructed images were created and reviewed. CONTRAST: IV 100mL [id number] RADIATION DOSE: CTDIvol = 19.10 mGy, DLP = 663.39 mGy-cm COMPARISON: None. FINDINGS: HEAD: RIGHT ANTERIOR CEREBRAL ARTERY: Unremarkable. No significant stenosis at the visualized segments. Anterior communicating artery is present. No aneurysm. RIGHT MIDDLE CEREBRAL ARTERY: Unremarkable. No significant stenosis at the visualized segments. No aneurysm. RIGHT POSTERIOR CEREBRAL ARTERY: Unremarkable. No occlusion or significant stenosis. No aneurysm. RIGHT INTRACRANIAL INTERNAL CAROTID ARTERY: See below. RIGHT INTRACRANIAL VERTEBRAL ARTERY: Unremarkable. No significant stenosis. No dissection or occlusion. LEFT ANTERIOR CEREBRAL ARTERY: Unremarkable. No significant stenosis at the visualized segments. No aneurysm. LEFT MIDDLE CEREBRAL ARTERY: Unremarkable. No significant stenosis at the visualized segments. No aneurysm. LEFT POSTERIOR CEREBRAL ARTERY: Unremarkable. No occlusion or significant stenosis. No aneurysm. LEFT INTRACRANIAL INTERNAL CAROTID ARTERY: See below. LEFT INTRACRANIAL VERTEBRAL ARTERY: Unremarkable. No significant stenosis. No dissection or occlusion. BASILAR ARTERY: Unremarkable. No significant stenosis. No aneurysm. OTHER VASCULATURE: There is mild atherosclerotic plaque formation of the origin of the right internal carotid artery with less than 50% cross sectional diameter stenosis. ALL ABOVE CRITERIA BY NASCET. There is mild atherosclerotic plaque formation of the origin of the left internal carotid artery with less than 50% cross sectional diameter stenosis. ALL ABOVE CRITERIA BY NASCET. There is calcified plaque formation of the right cavernous carotid artery, with a mild stenosis (less than 50%). ALL ABOVE CRITERIA BY NASCET. SINUSES: There is sinus disease. NECK: RIGHT COMMON CAROTID ARTERY: Unremarkable. No significant stenosis. No dissection or occlusion. RIGHT EXTRACRANIAL INTERNAL CAROTID ARTERY: See above. RIGHT EXTERNAL CAROTID ARTERY: Unremarkable. No occlusion. RIGHT EXTRACRANIAL VERTEBRAL ARTERY: Unremarkable. No significant stenosis. No dissection or occlusion. LEFT COMMON CAROTID ARTERY: Unremarkable. No significant stenosis. No dissection or occlusion. LEFT EXTRACRANIAL INTERNAL CAROTID ARTERY: See above. LEFT EXTERNAL CAROTID ARTERY: Unremarkable. No occlusion. LEFT EXTRACRANIAL VERTEBRAL ARTERY: Unremarkable. No significant stenosis. No dissection or occlusion. THYROID: The thyroid is heterogenous. It contains nodules. This should be further evaluated with ultrasound. This can be performed as an outpatient. GREAT VESSELS OF AORTIC ARCH: There is calcified plaque formation of the left cavernous carotid artery, with a mild stenosis (less than 50%). ALL ABOVE CRITERIA BY NASCET. LUNG APICES: Unremarkable as visualized. HEAD and NECK: BONES/JOINTS: There are degenerative findings of the cervical spine. No discrete lytic or blastic abnormalities. SOFT TISSUES: Unremarkable. CAROTID STENOSIS REFERENCE USING NASCET CRITERIA: % ICA stenosis = (1 - narrowest ICA diameter/diameter of distal cervical ICA) x 100. Mild - <50% stenosis. Moderate - 50-69% stenosis. Severe - 70-94% stenosis. Near occlusion - 95-99% stenosis. Occluded - 100% stenosis. CT/STROKE CTA Head AND Neck W/Con IMPRESSION: 1. The thyroid is heterogenous. It contains nodules. This should be further evaluated with ultrasound. This can be performed as an outpatient. 2. There is mild atherosclerotic plaque formation of the origin of the right internal carotid artery with less than 50% cross sectional diameter stenosis. ALL ABOVE CRITERIA BY NASCET. 3. There is mild atherosclerotic plaque formation of the origin of the left internal carotid artery with less than 50% cross sectional diameter stenosis. ALL ABOVE CRITERIA BY NASCET. 4. There is calcified plaque formation of the right cavernous carotid artery, with a mild stenosis (less than 50%). ALL ABOVE CRITERIA BY NASCET. 5. There is calcified plaque formation of the left cavernous carotid artery, with a mild stenosis (less than 50%). ALL ABOVE CRITERIA BY NASCET. Electronically Signed: Noah Cardoza MD at 18:45 EDT ,
--- NOTE | 2021-12-21 18:11 | EDS_ITS ---
HPI History of Present Illness Chief Complaint: Stroke Alert Informant: patient and spouse/S.O. Onset/Context/Timing Onset: Today Context: Sudden Onset Timing: Continuous Quality and Location: Positive for Right Facial Droop and Slurred Speech Current Severity: Mild Maximum Severity: Moderate Associated Symptoms Associated Symptoms: Positive for Headache; Negative for Nausea, Vomiting or Chest Pain Narrative Narrative: Male history of CAD with 4 cardiac stents on Coumadin. was not at home and he was working in the yard. She states she came home in about 5:00 she realized that he was in the backyard Stingose when she went to check on him and states that he was not acting normally she thought he had a right-sided facial droop and trouble with his speech and possibly weak on the right side. Most of that is resolved. She states he had a headache 2 days ago. No recent falls. He has never had a stroke or mini stroke. He is definitely improving from the symptoms he had at home. Prior similar symptoms: No Recent Illness/Hospitalization: No PFSH PFS Medical History Anticoagulant long-term use Home Medications warfarin 2.5 mg tablet 2.5 mg PO DAILY 10/06/17 [History Last Taken 10/06/17] Allergy/AdvReac Type Severity Reaction Status Date / Time No Known Allergies Allergy Verified 12/21/21 18:13 Social History household members: spouse Smoking Status: Former smoker substance use type: does not use ROS ROS ED ROS Narrative No recent illness. Headache 2 days ago. Review of Systems ROS Unobtainable: Denies due to encephalopathy Constitutional Constitutional ED: Denies chills or fever(s) Eyes Eyes: Denies blurry vision ENT ENT ED: Denies ear pain Cardiovascular Cardiovascular: Denies chest pain Respiratory/Chest Respiratory/Chest: Denies cough or dyspnea Gastrointestinal Gastrointestinal: Denies abdominal pain Genitourinary Genitourinary ED: Denies dysuria or hematuria Musculoskeletal Musculoskeletal: Denies arthralgias Integumentary Denies abscess Neurologic Neurologic: Reports headache(s) Psychiatric Psychiatric: Denies anxiety Endocrine Endocrinology: Denies polydipsia Hematologic/Lymphatic Hematologic/Lymphatic: Denies easy bleeding Allergic/Immunologic Allergic/Immunologic ED: Denies mouth swelling or urticaria EXAM Physical Exam Narrative Exam Narrative: 86-year-old male vital signs stable afebrile does not look septic toxic. H EENT exam is right side of his face does droop a little bit when he smiles both c orners of his mouth go up. Pupils round reactive light his motions are intact. He has normal sensation bilaterally. Tongue is midline. Normal speech. No signs of trauma. Neck nontender. No lymphadenopathy. Lungs are clear. Heart regular rate and rhythm rate about 80 no murmur. Chest were nontender. Abdomen soft nontender. Moving all 4 extremities. 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 Dorsi and plantar flexion intact. He can raise either arm or leg and there is no drift. He is speaking normally. At worst he has an NIH of 1. That would be for possible right-sided facial droop but there is no paralysis. Const Vital Signs: 12/21/21 18:05 12/21/21 18:16 12/21/21 18:17 Temperature 97.2 F L 97.2 F L Temperature Source Temporal Temporal Pulse Rate 81 Respiratory Rate 16 Blood Pressure 159/76 H Blood Pressure Mean 103 Pulse Ox 96 96 Oxygen Delivery Method Room Air Room Air 12/21/21 18:39 Temperature Temperature Source Pulse Rate 72 Respiratory Rate 16 Blood Pressure 156/101 H Blood Pressure Mean 119 Pulse Ox 95 Oxygen Delivery Method Room Air Positive well nourished and well developed; Negative for obese, cachectic, contractures or unkempt General Appearance ED: well developed; Negative for unkempt, cachectic, contractures or NAD Nutritional Appearance: Negative for cachectic or obese HEENT Reports moist mucous membranes atraumatic; Negative for trauma Nose: Negative for other Eyes PERRL and EOMs intact bilaterally General Eye ED: Negative for pale conjunctiva or scleral icterus Neck no lymphadenopathy, supple and no JVD General: Negative for tenderness Thyroid: Negative for other Chest Wall inspection of chest normal and palpation of chest normal Chest: Negative for other Resp normal respiratory effort and clear to auscultation bilaterally Effort and Inspection: Negative for retractions Auscultation: Negative for rales, rhonchi or wheezes Cardio no murmurs Rate: regular rate; Negative for bradycardia or tachycardic Rhythm: regular rhythm; Negative for abnormal rhythm Heart Sounds: S1 normal and S2 normal GI normal to inspection, nondistended, normoactive bowel sounds, soft to palpation, non-tender, non-distended and no masses Inspection: Negative for abdominal distention Auscultation: normoactive bowel sounds Palpation: Negative for tender or guarding Back/Spine no CVA tenderness General Back: Negative for CVA tenderness Cervical Spine: Negative for cervical spine tenderness Thoracic Spine / Upper Back: Negative for thoracic spinal tenderness Lumbar Spine / Lower Back: Negative for lumbar spinal tenderness Extremity normal to inspection General Extremety ED: Negative for deformity, edema or tenderness General Extremity: Negative for deformity or edema Neuro oriented x3 and no sensory deficits noted Neuro Narrative: Awake and alert. Answering questions following commands. Normal speech. His face seems a droop on the right however its not paralyzed when he smiles both corners of his mouth go up normally. Other than that he has normal motor strength to his arms and legs. No drift. Sensorium / Orientation: alert, oriented to person, oriented to place and oriented to time; Negative for orientation impaired, confused, lethargic or stuporous Speech: speech normal Motor Exam: strength 5/5 throughout Psych mental status grossly normal Appearance: Negative for unkempt Attitude: No agitated Mood & Affect: Negative for depressed Attention / Concentration: Negative for other Skin no wounds General Skin Exam: Negative for jaundice Lesions: no lesions Rashes: no rashes Trauma: Negative for abrasion NIHSS NIHSS Initial: 1a Level of Consciousness: 0 1b LOC Questions (Score 2 if aphasic/stupor): 0 1c LOC Commands (Only score 1st attempt): 0 2 Best Gaze (If aphasic, use reflexive mvmts.): 0 3 Visual: 0 4 Facial Palsy: 1 5 Motor Arm Right (UN = amputation/fusion): 0 5 Motor Arm Left: 0 6 Motor Leg Right: 0 6 Motor Leg Left: 0 7 Limb ataxia (Only + if out of proportion): 0 8 Sensory (Aphasia/stupor=0 or 1, coma=2): 0 9 Best Language: 0 10 Dysarthria (mute, coma=2, intubated=UN): 0 11 Extinction and Inattention (only scored if +): 0 Total Score: 1 MDM MDM MDM Narrative Medical decision making narrative: Patient with possible stroke or TIA symptoms. He seems to be much improved from when he was at home and even when our staff is getting him out of the car. Currently has normal motor strength. At worst he has an NIH of 1 currently. He is on the blood thinner Coumadin. He will be put through stroke protocol along with a CTA head and neck. He will be admitted. Repeat exam at 6:56 PM patient doing well. His NIH score is 0. His facial droop is completely resolved. He has normal motor strength. Normal speech. States he feels fine. I discussed all test results of both he and his . Still awaiting the PT/INR. I will speak to the hospitalist about admission. I have also spoken to the stroke neurologist who agrees that the patient is not a tPA candidate. Lab Data Attestation: I reviewed the patient's lab results. Lab results narrative: CBC normal. White count of 7 H&H of 14 and 44. Electrolytes unremarkable gap of 6 BUN and creatinine are 19 and 0.8. Glucose of 107. Troponin 13. CT of his brain and CTA shows no significant acute abnormalities as read by the radiologist and reviewed by me. Labs: Laboratory Results - last 24 hr 12/21/21 12/21/21 18:06 18:06 WBC 7.9 RBC 4.85 Hgb 14.5 Hct 44.6 MCV 92.0 MCH 29.9 MCHC 32.5 RDW Std Deviation 42.2 RDW Coeff of Boom 12.5 Plt Count 241 MPV 10.2 Immature Gran % (Auto) 0.400 Neut % (Auto) 72.4 H Lymph % (Auto) 15.5 L [place] % (Auto) 9.9 Eos % (Auto) 1.4 Baso % (Auto) 0.4 Absolute Neuts (auto) 5.7 Absolute Lymphs (auto) 1.23 Nucleated RBC % 0 Sodium 141 Potassium 3.7 Chloride 106 Carbon Dioxide 29.0 Anion Gap 6 BUN 19 H Creatinine 0.87 Estim Creat Clear Calc 66.90 Est GFR (MDRD) Af Amer 107 Est GFR (MDRD) Non-Af 88 BUN/Creatinine Ratio 21.8 H Glucose 107 H Calcium 9.2 Troponin I High Sens 13 Radiography Diagnostic Testing: Clinical Impression(s) from Imaging Studies Head/Neck CTA 12/21/21 18:10 IMPRESSION: 1. The thyroid is heterogenous. It contains nodules. This should be further evaluated with ultrasound. This can be performed as an outpatient. 2. There is mild atherosclerotic plaque formation of the origin of the right internal carotid artery with less than 50% cross sectional diameter stenosis. ALL ABOVE CRITERIA BY NASCET. 3. There is mild atherosclerotic plaque formation of the origin of the left internal carotid artery with less than 50% cross sectional diameter stenosis. ALL ABOVE CRITERIA BY NASCET. 4. There is calcified plaque formation of the right cavernous carotid artery, with a mild stenosis (less than 50%). ALL ABOVE CRITERIA BY NASCET. 5. There is calcified plaque formation of the left cavernous carotid artery, with a mild stenosis (less than 50%). ALL ABOVE CRITERIA BY NASCET. Electronically Signed: Noah Cardoza MD at 18:45 EDT , Rhythm Strip Rhythm Strip: Sinus Rhythm Rate: 71 Ectopy: None EKG Initial EKG: Attestation: I personally reviewed and interpreted this EKG as follows: Interpretation: Sinus Rhythm and No Acute Injury Pattern Comments: Normal sinus rhythm rate of 71 no acute signs of IA or ischemia. Right bundle branch block. Discharge Plan Triage Chief Complaint: Stroke Alert Other Complaint: Neuro S/Sx ED Provider: Inderjit Gillespie Dx/Rx/DC Orders Clinical Impression: TIA (transient ischemic attack), CAD (coronary artery disease), Chronic anticoagulation Prescriptions: No Action warfarin 2.5 MG tablet 2.5 mg PO DAILY Primary Care Provider: Joseph Mora Referrals: Joseph Mora MD [Primary Care Provider] - Disposition Disposition: Acute Care Hospital [facility]
--- NOTE | 2021-12-21 18:24 | CM.ED ---
SW Note SW responded to stroke alert. Patient goes by Jaquna. Patient's significant other is Maria Guadalupe. Patient has a daughter that Maria Guadalupe said that she would update but Jaquan asked her not to at this time. Emotional support provided. SW remains available if additional needs arise. Plan: Emotional support Oliva GIVENS
[2021-12-21 18:33] LABS: Absolute Lymphocyte Count 1.23 X10^3/uL (0.83-4.51); Absolute Neutrophil Count 5.7 X10^3/uL (2.0-7.7); Basophil# 0.03 X10^3/uL; Basophil% 0.4 % (0-1); Eosinophil# 0.11 X10^3/uL; Eosinophils% 1.4 % (0-5); Hematocrit 44.6 % (40-54); Hemoglobin 14.5 g/dL (13.0-16.5); Lymphocyte # 1.23 X10^3/ul (0.83-4.51); Lymphocyte % 15.5 % (19-41); Mean Corp Hgb Conc 32.5 g/dL (32-36); Mean Corpuscular Hgb 29.9 pg (27.0-32.0); Mean Platelet Vol. 10.2 fl (6.2-12.0); Monocyte# 0.78 X10^3/uL; Monocyte% 9.9 % (0-10); NRBC Flagged by Analyzer 0 % (0-5); Neutrophil # 5.73 X10^3/uL (2.7-7.7); Neutrophil % 72.4 % (47-70); Platelet Count 241 K/mm3 (150-450); RBC Distribution Width CV 12.5 % (11.6-14.6); RBC Distribution Width SD 42.2 fl (35.1-43.9); Red Blood Count 4.85 M/mm3 (4.6-6.2); White Blood Count 7.9 K/mm3 (4.4-11.0)
[2021-12-21 18:45] LABS: International Normalized Ratio 2.3; Prothrombin Time (Protime)PT. 24.7 SECONDS (11.7-14.9)
[2021-12-21 18:52] LABS: Anion Gap 6 (5-15); BUN 19 mg/dL (7-18); BUN/Creat Ratio 21.8 RATIO (10-20); Calcium,Total 9.2 mg/dL (8.5-10.1); Chloride 106 mmol/L (98-107); Creatinine, Serum 0.87 mg/dL (0.70-1.30); EST Glomerular Filtration Rate 88 mL/min (>60); Est Glom Filt Rate - Afr Amer 107 mL/min (>60); Glucose 107 mg/dL (74-106); Potassium 3.7 mmol/L (3.5-5.1); Sodium Level 141 mmol/L (136-145); Troponin-I HS 13 pg/mL (3.0-78.0)
[2021-12-21 18:55] LABS: Partial Thromboplast Time 36.6 Seconds (24.1-36.2)
--- NOTE | 2021-12-21 18:59 | RAD_ITS ---
STUDY: XR Chest 1 View 12/21/2021 6:59 PM REASON FOR EXAM: Male, 86 years old. CHEST PAIN Neuro deficit, acute, stroke suspected COMPARISON: 02.10.21 TECHNIQUE: XR Chest 1 View FINDINGS: There is no demonstrated pleural abnormality. Normal heart size. Normal mediastinum. Normal david. Prominent appearing increased interstitial lung markings. Normal visualized pulmonary arteries. There is atherosclerotic calcification of the aortic arch with tortuosity. There are diffuse degenerative changes of the visualized thoracic spine. There is degenerative osteoarthritis of the bilateral shoulders. There is no demonstrated abnormality of the visualized soft tissue structures of the upper abdomen. RAD/Chest 1 View IMPRESSION: There are no acute findings. Electronically Signed: Noah Cardoza MD at 19:22 EDT ,
--- NOTE | 2021-12-21 18:59 | ED.RN ---
PER DR. TAMEKA TALLEY TO [facility] STROKE SCALE.
--- NOTE | 2021-12-21 19:57 | HP.PCM.HOS_ITS ---
HPI - General General Date of Admission: 12/21/21 Date of Service: 12/21/21 Chief Complaint: Strokelike symptoms HPI Narrative GERONIMO HOPSON, is a 86 M with a significant history of; hypertension in dyslipidemia who presents to the emergency department with strokelike symptoms. Last known well before presentation was about 5 hours. When patient's significant other returned home patient was having expressive aphasia and right-sided weakness. Also he had a facial droop. Reportedly nurses had to pull patient from his vehicle when patient arrived to the ED. However while at the emergency department patient symptoms resolved. [facility] Medical History Anticoagulant long-term use Home Medications warfarin 2.5 mg tablet 2.5 mg PO DAILY 10/06/17 [History Last Taken 10/06/17] Allergy/AdvReac Type Severity Reaction Status Date / Time No Known Allergies Allergy Verified 12/21/21 18:13 Family History Other Alcoholism Surgical History History of appendectomy Social History household members: spouse Smoking Status: Former smoker substance use type: does not use ROS ROS Narrative Pertinent positives and pertinent negatives as noted in HPI. All other systems were reviewed and are negative Vital Signs Vital Signs Vital Signs: 12/21/21 18:05 12/21/21 18:16 12/21/21 18:17 Temperature 97.2 F L 97.2 F L Temperature Source Temporal Temporal Pulse Rate 81 Respiratory Rate 16 Blood Pressure 159/76 H Blood Pressure Mean 103 Pulse Ox 96 96 Oxygen Delivery Method Room Air Room Air 12/21/21 18:39 12/21/21 19:02 12/21/21 19:15 Temperature 97.6 F L Temperature Source Temporal Pulse Rate 72 74 70 Respiratory Rate 16 16 18 Blood Pressure 156/101 H 164/78 H 171/81 H Blood Pressure Mean 119 106 111 Pulse Ox 95 94 96 Oxygen Delivery Method Room Air Room Air Room Air Weight Weight: 80.9 kg Body Mass Index (BMI) 24.2 Physical Exam Narrative Physical exam: General: Well-nourished, well-developed. Head: Normocephalic, atraumatic, no tenderness Eyes: Vision is grossly intact. EOMI ENT, no trauma, moist mucous membranes, no rhinorrhea Neck: Nontender, full range of motion, no spinal tenderness, deformities, step- off CVS: Regular rate and rhythm. S1-S2 present. No murmur, gallop or rub. Respiratory : clear to auscultation bilaterally, chest wall nontender, no wheezing Abdomen: Soft, nontender, nondistended, normal bowel sounds, no masses : Deferred Back: Nontender, no CVA tenderness, no midline spinal tenderness, deformities, step-offs Extremities: Nontender full range of motion, no trauma Skin: Normal color, no trauma, abrasions Neuro: Alert, oriented, cranial nerves II through XII grossly intact. Right upper extremity strength 4 out of 5. Strength in all other extremities 5 out of 5. Not hyperreflexia throughout. No dysmetria with [id number] test and [id number] test Psychiatry: Normal mood. Normal affect. Not depressed. Not anxious. Results Lab / Micro Data Result Diagrams: 12/21/21 18:06 12/21/21 18:06 Labs: Laboratory Results - last 24 hr 12/21/21 18:06: WBC 7.9, RBC 4.85, Hgb 14.5, Hct 44.6, MCV 92.0, MCH 29.9, MCHC 32.5, RDW Std Deviation 42.2, RDW Coeff of Boom 12.5, Plt Count 241, MPV 10.2, Immature Gran % (Auto) 0.400, Neut % (Auto) 72.4 H, Lymph % (Auto) 15.5 L, [place] % (Auto) 9.9, Eos % (Auto) 1.4, Baso % (Auto) 0.4, Absolute Neuts (auto) 5.7, Absolute Lymphs (auto) 1.23, Nucleated RBC % 0 12/21/21 18:06: PT 24.7 H, INR 2.3, APTT 36.6 H 12/21/21 18:06: Sodium 141, Potassium 3.7, Chloride 106, Carbon Dioxide 29.0, Anion Gap 6, BUN 19 H, Creatinine 0.87, Estim Creat Clear Calc 66.90, Est GFR (MDRD) Af Amer 107, Est GFR (MDRD) Non-Af 88, BUN/Creatinine Ratio 21.8 H, Glucose 107 H, Calcium 9.2, Troponin I High Sens 13 Rhythm Strip Rhythm Strip: Sinus Rhythm Rate: 71 Ectopy: None Radiology Impression Head/Neck CTA 12/21/21 18:10 IMPRESSION: 1. The thyroid is heterogenous. It contains nodules. This should be further evaluated with ultrasound. This can be performed as an outpatient. 2. There is mild atherosclerotic plaque formation of the origin of the right internal carotid artery with less than 50% cross sectional diameter stenosis. ALL ABOVE CRITERIA BY NASCET. 3. There is mild atherosclerotic plaque formation of the origin of the left internal carotid artery with less than 50% cross sectional diameter stenosis. ALL ABOVE CRITERIA BY NASCET. 4. There is calcified plaque formation of the right cavernous carotid artery, with a mild stenosis (less than 50%). ALL ABOVE CRITERIA BY NASCET. 5. There is calcified plaque formation of the left cavernous carotid artery, with a mild stenosis (less than 50%). ALL ABOVE CRITERIA BY NASCET. Electronically Signed: Noah Cardoza MD at 18:45 EDT , ADDENDUM: 12/21/21 [id number] IMPRESSION: 1. The thyroid is heterogenous. It contains nodules. This should be further evaluated with ultrasound. This can be performed as an outpatient. 2. There is mild atherosclerotic plaque formation of the origin of the right internal carotid artery with less than 50% cross sectional diameter stenosis. ALL ABOVE CRITERIA BY NASCET. 3. There is mild atherosclerotic plaque formation of the origin of the left internal carotid artery with less than 50% cross sectional diameter stenosis. ALL ABOVE CRITERIA BY NASCET. 4. There is calcified plaque formation of the right cavernous carotid artery, with a mild stenosis (less than 50%). ALL ABOVE CRITERIA BY NASCET. 5. There is calcified plaque formation of the left cavernous carotid artery, with a mild stenosis (less than 50%). ALL ABOVE CRITERIA BY NASCET. N.B. : The above Results were Read Back by Noah Cardoza MD to Kristian Gillespie MD, and understanding confirmed on 12/21/2021 18:52:55 (ET). Electronically Signed: Noah Cardoza MD at 18:45 EDT , Chest X-Ray 12/21/21 18:59 IMPRESSION: There are no acute findings. Electronically Signed: Noah Cardoza MD at 19:22 EDT , Assessment & Plan Assessment/Plan (1) Stroke-like symptoms: (2) TIA (transient ischemic attack): (3) Chronic anticoagulation: PLAN: Plan Stroke-like symptoms Serial NINDS NIH Scale ordered. Impression of head CT by radiology:Chronic microvascular ischemic changes. Upon my personal head CT image review: I agree with radiologist interpretation CT head and neck with no hemodynamically significant stenosis Lipid profile and A1c ordered. Physical therapy, and occupational therapy to work with patient. N.p.o. until bedside swallow eval. Daily aspirin ordered. Review of record shows lipid profile on 03/13/2021 with triglycerides of 193; cholesterol 206; LDL cholesterol 129; VLDL cholesterol 39; HDL cholesterol of 38. Patient's significant other who was at the bedside stated patient was previously on statin but statin was discontinued because patient lipids level were good. High intensity statin ordered Permissive hypertension. Control blood pressure with labetalol for systolic blood pressure of more than 220 or diastolic blood pressure of more than 120. MRI brain ordered Echocardiogram ordered. Paroxysmal A. fib Stable INR therapeutic. Coumadin continued. Thyroid nodules CT head and neck on presentation showed nodules in thyroid; and for which thyroid ultrasound was recommended. TSH ordered. DVT prophylaxis Coumadin continued as above.
[2021-12-21] MEDS: Atorvastatin Calcium 40 MG Tablet PO (22:01)
[2021-12-22] VITALS (7 sets, daily range): BP systolic 142–170; BP diastolic 58–81; PULSE 56–82; RESP 16–20; TEMP 36.4–36.9; O2SAT 96–98
--- NOTE | 2021-12-22 03:29 | EKG12_ITS ---
Test Reason : RHYTHM CHANGE Blood Pressure : / mmHG Vent. Rate : 054 BPM Atrial Rate : 054 BPM P-R Int : 202 ms QRS Dur : 142 ms QT Int : 462 ms P-R-T Axes : 082 -23 024 degrees QTc Int : 438 ms Sinus bradycardia with Premature supraventricular complexes Right bundle branch block Abnormal ECG When compared with ECG of 21-DEC-2021 18:49, MANUAL COMPARISON REQUIRED, DATA IS UNCONFIRMED Confirmed by BILLY POLANCO, JENSEN ([id number]), food editor GUS STRINGER ([id number]) on 12/24/2021 12:42:27 PM Referred By: Confirmed By:JENSEN CERVANTES MD
[2021-12-22] MEDS: Potassium Chloride Oral Tablet 10 MEQ 30 MEQ PO (04:47)
[2021-12-22 05:59] LABS: International Normalized Ratio 2.5
[2021-12-22 06:03] LABS: Magnesium 2.1 mg/dL (1.6-2.6)
[2021-12-22 06:12] LABS: Cholesterol 152 mg/dL (200); High Density Lipoprotein 35 mg/dL; Thyroid Stim Hormone (TSH) 0.42 uIU/mL (0.358-3.74); Triglycerides 76 mg/dL; Very Low Density Lipoprotein 15 mg/dL (5-40)
[2021-12-22] MEDS: Aspirin 81 MG TAB.CHEW PO (08:35)
--- NOTE | 2021-12-22 09:00 | MRI_ITS ---
STUDY: MRI BRAIN WITHOUT CONTRAST REASON FOR EXAM: Male, 86 years old. CVA R facial droop, slurred speech TECHNIQUE: Standardized multiplanar fat and water weighted pulse sequences were obtained. COMPARISON: Head CT dated December 21, 2021. MRI of the brain dated SEPTEMBER 09, 2016 FINDINGS: There is mild cerebral atrophy with widening of the extra-axial spaces and ventricular dilatation. There are multiple white matter hyperintensities, distributed throughout the deep white matter tracts of the cerebral hemispheres, consistent with moderate chronic white matter ischemic changes. There is no evidence for recent intracranial ischemia or other cause of cytotoxic edema on diffusion weighted imaging (DWI). 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 Normal thalami. There is no extra-axial fluid accumulation. Normal flow voids within the major intracranial circulation suggesting patency by spin echo criteria. Normal sella turcica, pituitary gland, infundibular stalk, optic chiasm and hypothalamus. Normal tectal plate and pineal gland. Normal midbrain, joey and medulla. Normal cerebellum. Normal basal cisterns. Normal bilateral temporal bones. Normal bilateral internal auditory canals. No demonstrated orbital abnormality, within the constraints of a routine brain study. Normal visualized paranasal sinuses. Normal calvarium and skull base. Normal visualized soft tissue structures. Normal visualized upper cervical spine. MRI/Brain without Contrast IMPRESSION: 1. Involutional and chronic ischemic changes of the brain, as described above. 2. No acute infarct or intracranial hemorrhage. Electronically Signed: Fabiano Cheema MD at 10:46 EDT ,
[2021-12-22 09:23] LABS: Hemoglobin A1c 5.9 % (3.8-5.6)
--- NOTE | 2021-12-22 11:11 | DCINST_ITS ---
Discharge Instructions Diet Discharge Diet: No restrictions Activity Discharge Activity: Return to Normal Activity Dressing / Incision Call your doctor if you observe: Fever of 101 or Higher, Shortness of breath, Dizziness, Fainting spells, Swelling in the ankles, Chest pain and Increased palpitations (irregular heartbeat) Follow Up Care Test Results: Test results from this visit will be discussed in further detail at your follow- up appointment, if applicable. Discharge Plan Admission Admit Date/Time: 12/21/21 19:40 Attending Provider: Spike Preston Primary Care Provider: Joseph Mora Consulting Providers: Dirk Us Instructions Additional Instructions / Restrictions: Follow-up with your PCP in 3 to 5 days to monitor your blood pressure. I also started you on lisinopril which can affect kidney function started recommend an outpatient BMP as well. Discharge Orders/Prescriptions Prescriptions: New atorvastatin 40 mg Tablet 40 mg PO QHS Qty: 30 0RF aspirin 81 mg Tablet,Chewable 81 mg PO BREAKFAST Qty: 30 0RF lisinopril 10 mg tablet 10 mg PO DAILY Qty: 30 0RF Continued warfarin 2.5 MG tablet 2.5 mg PO DAILY Referrals / Follow Up: Joseph Mora MD [Primary Care Provider] - Within 1 Week Disposition Disposition (needs filled in before D/C Order can be placed): Home, Self Care
--- NOTE | 2021-12-22 11:16 | DS.PCM_ITS ---
Providers Date of Admission: 12/21/21 Primary Care Physician: Dr. Joseph Mora MD Reason For Visit: TIA Diagnosis Discharge Diagnosis (1) Stroke-like symptoms: Status: Acute Code(s): R29.90 - Unspecified symptoms and signs involving the nervous system (2) TIA (transient ischemic attack): Status: Acute Code(s): G45.9 - Transient cerebral ischemic attack, unspecified (3) Chronic anticoagulation: Status: Acute Code(s): Z79.01 - equipment [employer] (current) 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 Medications at Discharge Home Medications warfarin 2.5 mg tablet 2.5 mg PO DAILY 10/06/17 aspirin 81 mg chewable tablet 81 mg PO BREAKFAST #30 tabs 12/22/21 atorvastatin 40 mg tablet 40 mg PO QHS #30 tabs 12/22/21 lisinopril 10 mg tablet 10 mg PO DAILY #30 tabs 12/22/21 Hospital Course Operations None Procedures None Summary of Care Provided Minutes Spent on Discharge: 36 Hospital Course: Per HPI: GERONIMO HOPSON,? is a 86 M with a significant history of; hypertension in dyslipidemia who presents to the emergency department with strokelike symptoms.? Last known well before presentation was about 5 hours.? When patient's significant other returned home patient was having expressive aphasia and right-sided weakness.? Also he had a facial droop.? Reportedly nurses had to pull patient from his vehicle when patient arrived to the ED.? However while? at the emergency department patient symptoms resolved. Hospital Course: 1. TIA/paroxysmal A. fib?86-year-old male presented with right-sided weakness and aphasia, this is completely resolved. He was started on aspirin and Lipitor, CT of the head and neck was unremarkable and CT of the brain was normal. He did have an MRI today which was negative and just showed normal aging. I discussed with him the plan for possible discharge today given the fact that his NIHs have been 0, and he expressed understanding of the risk benefits of going home and would like to go home today. His blood pressures have been a little bit elevated so I do recommend starting him on lisinopril 10 mg p.o. daily as well as continuing aspirin and Lipitor in the setting of his Coumadin, his INR was therapeutic. I do recommend following up with his PCP in 3 to 5 days after discharge. 2. Incidental thyroid nodules on CT scan recommend outpatient follow-up with an ultrasound, TSH is normal at 0.42 Physical Exam Narrative General: Alert, Oriented x3, Cooperative, No apparent distress HEENT: Atraumatic, PERRLA, EOMI, Normocephalic Oral: Moist Mucosa Neck: Supple, No JVD Lungs: Clear to auscultation, Normal air movement, No rhonchi, No wheeze, No rales Cardiovascular: Regular rate, Regular Rhythm, Normal S1, Normal S2, No murmurs Abdomen: Soft, Non Tender, Non-Distended, No Hepato-splenomegaly Extremities: No edema, Capillary Refill Less than 3 Seconds Skin: No rashes, No breakdown Musculoskeletal: No Tenderness to Palpation of Joints or Extremities Neurological: Cranial nerves II-XII grossly intact, Motor Exam 5/5 strength throughout, Sensory exam intact to light touch and pain Psych/Mental Status: Normal Affect, Appropriate Weight / BMI Weight Weight: 167 lb 5.294 oz Body Mass Index (BMI) 22.6 ABG / Lab / Microbiology Data Result Diagrams: 12/21/21 18:06 12/21/21 18:06 Laboratory: Laboratory Results - last 24 hr 12/21/21 18:06: WBC 7.9, RBC 4.85, Hgb 14.5, Hct 44.6, MCV 92.0, MCH 29.9, MCHC 32.5, RDW Std Deviation 42.2, RDW Coeff of Boom 12.5, Plt Count 241, MPV 10.2, Immature Gran % (Auto) 0.400, Neut % (Auto) 72.4 H, Lymph % (Auto) 15.5 L, Hart % (Auto) 9.9, Eos % (Auto) 1.4, Baso % (Auto) 0.4, Absolute Neuts (auto) 5.7, Absolute Lymphs (auto) 1.23, Nucleated RBC % 0 12/21/21 18:06: PT 24.7 H, INR 2.3, APTT 36.6 H 12/21/21 18:06: Sodium 141, Potassium 3.7, Chloride 106, Carbon Dioxide 29.0, Anion Gap 6, BUN 19 H, Creatinine 0.87, Estim Creat Clear Calc 66.90, Est GFR (MDRD) Af Amer 107, Est GFR (MDRD) Non-Af 88, BUN/Creatinine Ratio 21.8 H, Glucose 107 H, Calcium 9.2, Troponin I High Sens 13 12/22/21 05:15: PT 27.0 H, INR 2.5 12/22/21 05:15: Triglycerides 76, Cholesterol 152, LDL Cholesterol 102, VLDL Cholesterol 15, HDL Cholesterol 35 L, TSH 0.42 12/22/21 05:15: Hemoglobin A1c 5.9 H 12/22/21 05:15: Magnesium 2.1 Radiography Diagnostic Testing: Radiology Impression Brain CT 12/21/21 18:09 IMPRESSION: Chronic microvascular ischemic changes. N.B. : The above Results were Read Back by Noah Cardoza MD to JOSUE Richardson, and understanding confirmed on 12/21/2021 18:52:51 (ET). Electronically Signed: Noah Cardoza MD at 18:33 EDT , ADDENDUM: 12/21/212119 IMPRESSION: undefined Head/Neck CTA 12/21/21 18:10 IMPRESSION: 1. The thyroid is heterogenous. It contains nodules. This should be further evaluated with ultrasound. This can be performed as an outpatient. 2. There is mild atherosclerotic plaque formation of the origin of the right internal carotid artery with less than 50% cross sectional diameter stenosis. ALL ABOVE CRITERIA BY NASCET. 3. There is mild atherosclerotic plaque formation of the origin of the left internal carotid artery with less than 50% cross sectional diameter stenosis. ALL ABOVE CRITERIA BY NASCET. 4. There is calcified plaque formation of the right cavernous carotid artery, with a mild stenosis (less than 50%). ALL ABOVE CRITERIA BY NASCET. 5. There is calcified plaque formation of the left cavernous carotid artery, with a mild stenosis (less than 50%). ALL ABOVE CRITERIA BY NASCET. Electronically Signed: Noah Cardoza MD at 18:45 EDT , ADDENDUM: 12/21/21 1859 IMPRESSION: 1. The thyroid is heterogenous. It contains nodules. This should be further evaluated with ultrasound. This can be performed as an outpatient. 2. There is mild atherosclerotic plaque formation of the origin of the right internal carotid artery with less than 50% cross sectional diameter stenosis. ALL ABOVE CRITERIA BY NASCET. 3. There is mild atherosclerotic plaque formation of the origin of the left internal carotid artery with less than 50% cross sectional diameter stenosis. ALL ABOVE CRITERIA BY NASCET. 4. There is calcified plaque formation of the right cavernous carotid artery, with a mild stenosis (less than 50%). ALL ABOVE CRITERIA BY NASCET. 5. There is calcified plaque formation of the left cavernous carotid artery, with a mild stenosis (less than 50%). ALL ABOVE CRITERIA BY NASCET. N.B. : The above Results were Read Back by Noah Cardoza MD to Kristian Gillespie MD, and understanding confirmed on 12/21/2021 18:52:55 (ET). Electronically Signed: Noah Cardoza MD at 18:45 EDT , Chest X-Ray 12/21/21 18:59 IMPRESSION: There are no acute findings. Electronically Signed: oNah Cardoza MD at 19:22 EDT , Brain MRI 12/22/21 09:00 IMPRESSION: 1. Involutional and chronic ischemic changes of the brain, as described above. 2. No acute infarct or intracranial hemorrhage. Electronically Signed: Fabiano Cheema MD at 10:46 EDT , D/C Instructions Discharge Diet: No restrictions Call your doctor if you observe: Fever of 101 or Higher, Shortness of breath, Dizziness, Fainting spells, Swelling in the ankles, Chest pain and Increased palpitations (irregular heartbeat) Meaningful Use Info Meaningful Use Diagnoses (Choose all that apply): None applicable Discharge Plan Admission Admit Date/Time: 12/21/21 19:40 Attending Provider: Spike Preston Primary Care Provider: Joseph Mora Consulting Providers: Dirk Us Instructions Additional Instructions / Restrictions: Follow-up with your PCP in 3 to 5 days to monitor your blood pressure. I also started you on lisinopril which can affect kidney function started recommend an outpatient BMP as well. Discharge Orders/Prescriptions Prescriptions: New atorvastatin 40 mg Tablet 40 mg PO QHS Qty: 30 0RF aspirin 81 mg Tablet,Chewable 81 mg PO BREAKFAST Qty: 30 0RF lisinopril 10 mg tablet 10 mg PO DAILY Qty: 30 0RF Continued warfarin 2.5 MG tablet 2.5 mg PO DAILY Referrals / Follow Up: Joseph Mora MD [Primary Care Provider] - Within 1 Week Disposition Disposition (needs filled in before D/C Order can be placed): Home, Self Care Charges/Coding Visit Charges OBSV E&M: 07085 Observation care discharge
[2021-12-22] MEDS: Lisinopril 10 MG Tablet PO (11:37)
[2021-12-25 08:30] LABS: Bedside Glucose 122 mg/dL (74-106)
== END 2021-12-22 11:15 | disposition home or self-care (01) ==
LOC: ED 19:16 → PCU 20:22
PROVIDERS: Admitting Provider Hospitalist; Emergency Provider Emergency Medicine; PCP Family Medicine; Visit Provider Family Medicine
DX: G45.9 Transient cerebral ischemic attack, unspecified (principal); I48.0 Paroxysmal atrial fibrillation; R29.810 Facial weakness; E78.5 Hyperlipidemia, unspecified; Z87.891 Personal history of nicotine dependence; Z79.01 Long term (current) 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; I25.10 Atherosclerotic heart disease of native coronary artery without angina pectoris; E04.2 Nontoxic multinodular goiter; I10 Essential (primary) hypertension; R47.81 Slurred speech; Z79.899 Other long term (current) drug therapy; Z95.5 Presence of coronary angioplasty implant and graft
CPT/HCPCS: 36415; 70450; 70496; 70498; 70551; 71045; 80048; 80061; 82962; 83036; 83735; 84443; 84484; 85025; 85610; 85730; 93005; 94762; 97162; 97165; 99218; 99285; Q9967; G0378

== ENCOUNTER 2023-02-10 14:30 | Emergency (ER) | payer OTHER, SELFPAY ==
[2023-02-10 14:32] VITALS: BP 141/62; PULSE 78; RESP 18; TEMP 36.6; O2SAT 98
[2023-02-10 14:37] VITALS: BMI 22.1
[2023-02-10 15:29] VITALS: BP 147/75; PULSE 66; RESP 16; O2SAT 97
--- NOTE | 2023-02-10 15:31 | EX.ED.DYSGE1 ---
HPI History of Present Illness Chief Complaint: Fatigue Informant: patient Onset/Context/Timing Onset: Yesterday Context: Gradual Onset Timing: Continuous Quality: Weakness Location: Generalized Worsened by: Nothing Relieved by: Nothing Narrative Narrative: Presents with generalized weakness that has been getting worse since yesterday morning. Patient states it is gradually getting worse. Patient states he feels weak all over. Patient admits to a mild sore throat and some neck pain. Patient denies any chest pain or shortness of breath. Patient denies any cough. Patient denies any nausea or vomiting. Patient denies any fevers or chills. Patient denies any urinary complaints. Patient denies any headaches. [facility] Medical History Anticoagulant long-term use CAD (coronary artery disease) Chronic anticoagulation TIA (transient ischemic attack) Home Medications warfarin 2.5 mg tablet 2.5 mg PO DAILY blood thinner 10/06/17 [History Last Taken 10/06/17] aspirin 81 mg chewable tablet 81 mg PO BREAKFAST #30 tabs 12/22/21 [Rx Last Taken Unknown] atorvastatin 40 mg tablet 40 mg PO QHS #30 tabs 12/22/21 [Rx Last Taken Unknown] lisinopril 10 mg tablet 10 mg PO DAILY #30 tabs 12/22/21 [Rx Last Taken Unknown] Allergy/AdvReac Type Severity Reaction Status Date / Time No Known Allergies Allergy Verified 02/10/23 14:32 Family History Other Alcoholism Surgical History History of appendectomy Hx of appendectomy Stented coronary artery Social History household members: spouse Smoking Status: Former smoker substance use type: does not use ROS ROS ED Constitutional Constitutional ED: Denies chills or fever(s) Eyes Eyes: Denies blurry vision or change in vision ENT ENT ED: Reports sore throat; Denies rhinorrhea Cardiovascular Cardiovascular: Denies chest pain or palpitations Respiratory/Chest Respiratory/Chest: Denies cough or dyspnea Gastrointestinal Gastrointestinal: Denies nausea or vomiting Genitourinary Genitourinary ED: Denies dysuria or hematuria Musculoskeletal Musculoskeletal: Reports neck pain; Denies back pain Integumentary Denies abscess or rash Neurologic Neurologic: Reports weakness; Denies headache(s) Allergic/Immunologic Allergic/Immunologic ED: Denies mouth swelling or urticaria EXAM Physical Exam Const Vital Signs: 02/10/23 14:32 02/10/23 15:20 02/10/23 15:29 Temperature 98 F Temperature Source Temporal Pulse Rate 78 66 Respiratory Rate 18 16 Respiratory Effort Normal Non-Labored Respiratory Pattern Normal Blood Pressure 141/62 H 147/75 H Blood Pressure Mean 88 99 Pulse Ox 98 97 Oxygen Delivery Method Room Air Room Air 02/10/23 16:59 Temperature Temperature Source Pulse Rate 79 Respiratory Rate 12 Respiratory Effort Respiratory Pattern Blood Pressure 153/68 H Blood Pressure Mean 96 Pulse Ox 98 Oxygen Delivery Method Room Air Positive well nourished and well developed General Appearance ED: well developed and NAD HEENT Reports moist mucous membranes Neck supple and no JVD Resp normal respiratory effort and clear to auscultation bilaterally Cardio regular rate and regular rhythm GI non-tender and non-distended Palpation: soft Extremity normal to inspection General Extremety ED: Negative for edema or tenderness General Extremity: Negative for edema Neuro oriented x3, CN's II-XII intact bilaterally and no sensory deficits noted Sensorium / Orientation: alert Motor Exam: strength 5/5 throughout and general weakness Psych mental status grossly normal MDM MDM MDM Narrative Medical decision making narrative: Differential diagnosis includes cardiac dysrhythmia, cardiac ischemia, pneumonia, pneumothorax, urinary tract infection, pyelonephritis, viral illness, dehydration, electrolyte abnormality, and gastroenteritis. EKG will be obtained to assess for cardiac dysrhythmia and cardiac ischemia. Chest x-ray will be obtained to assess for pneumonia and pneumothorax. CBC will be obtained to assess for leukocytosis and anemia. Basic metabolic profile will be obtained to assess for electrolyte abnormality and renal function. High-sensitivity troponin will be obtained to assess for cardiac ischemia. PT with INR and PTT will be obtained to assess for coagulopathy. Lab Data Attestation: I reviewed the patient's lab results. Lab results narrative: CBC was reviewed. There is a mild anemia with a hemoglobin of 10.6 and hematocrit 36.2. Basic metabolic profile was reviewed. BUN was 19. Chloride was slightly elevated at 108. Anion gap was normal. Glucose was normal. PT with INR and PTT were reviewed. Pro time was 15.6 and INR is 1.2. PTT was normal at 26.3. High-sensitivity troponin was reviewed and was normal at 16. Urinalysis was reviewed. There is no evidence of urinary tract infection or hematuria. COVID-19 rapid antigen was reviewed and was negative. Influenza A and influenza B antigens were reviewed and were negative. Labs: Laboratory Results - last 24 hr 02/10/23 02/10/23 16:00 17:00 WBC 7.5 RBC 4.42 L Hgb 10.6 L Hct 36.2 L MCV 81.9 MCH 24.0 L MCHC 29.3 L RDW Std Deviation 41.8 RDW Coeff of Boom 14.1 Plt Count 328 MPV 9.9 Immature Gran % (Auto) 0.400 Neut % (Auto) 77.9 H Lymph % (Auto) 13.3 L Stewart % (Auto) 7.2 Eos % (Auto) 0.4 Baso % (Auto) 0.8 Absolute Neuts (auto) 5.8 Absolute Lymphs (auto) 0.99 Nucleated RBC % 0 PT 15.6 H INR 1.2 APTT 26.3 Sodium 140 Potassium 4.0 Chloride 108 H Carbon Dioxide 30.0 Anion Gap 2 L BUN 19 H Creatinine 0.80 Estim Creat Clear Calc 68.37 Est GFR (MDRD) Af Amer 118 Est GFR (MDRD) Non-Af 97 BUN/Creatinine Ratio 23.8 H Glucose 117 H Calcium 8.9 Troponin I High Sens 16 Urine Color Yellow Urine Clarity Clear Urine pH 6.5 Ur Specific [place] 1.015 Urine Protein 15 H Urine Glucose (UA) Normal Urine Ketones 5 H Urine Occult Blood Negative Urine Nitrite Negative Urine Bilirubin 1 H Urine Urobilinogen 4 H Ur Leukocyte Esterase 25 H Urine RBC 0 SEEN Urine WBC 0-5 SEEN Ur Squamous Epith Cells 0 SEEN Urine Bacteria 0 SEEN Urine Mucus 0 SEEN Radiography Diagnostic Testing: Clinical Impression(s) from Imaging Studies Chest X-Ray 02/10/23 16:01 IMPRESSION: No definite acute or significant abnormality seen. Electronically Signed: Greg Ronquillo MD at 16:24 EST , Portable 1 view chest x-ray was obtained. On my independent interpretation, lung العلي are clear. There is normal cardiac silhouette. Bony thorax is normal. There is no acute process noted. Radiologist also interpreted the x-ray and agrees. EKG Initial EKG: Attestation: I personally reviewed and interpreted this EKG as follows: Interpretation: Sinus Rhythm (69), RBBB and Non-Specific ST Changes Comments: EKG was obtained. On my independent interpretation, it showed a normal sinus rhythm with a rate of 69. ME interval is within normal limits at 164 ms. QRS interval is slightly prolonged at 128 ms. QTc interval is within normal limits at 471 ms. There is left axis deviation at -39. There is a right bundle branch block pattern noted. There are nonspecific ST-T wave changes. Prior EKG tracings: available for review Prior: Unchanged (12/22/2021) Treatment and Re-Evaluation :: Patient was given IV fluids. Patient feeling better on reevaluation. Patient wants to go home. Patient was ambulated here in the emergency department was able to ambulate with a walker and was steady on his feet. Patient will be discharged. Patient will be instructed to follow-up with his primary care physician in 3 to 5 days. Patient was instructed to return if worse in any way. Patient and spouse understood and were agreeable with the plan. All questions were answered. Discharge Plan Triage Chief Complaint: Fatigue ED Provider: Brian Cunningham Dx/Rx/DC Orders Clinical Impression: Essential (primary) hypertension, General weakness Instructions: ED Weakness (Uncertain Cause) Prescriptions: No Action warfarin 2.5 MG tablet 2.5 mg PO DAILY atorvastatin 40 mg Tablet 40 mg PO QHS Qty: 30 0RF aspirin 81 mg Tablet,Chewable 81 mg PO BREAKFAST Qty: 30 0RF lisinopril 10 mg tablet 10 mg PO DAILY Qty: 30 0RF Primary Care Provider: Joseph Mora Referrals: Joseph Mora MD [Primary Care Provider] - 3-5 Days Disposition Disposition: Home, Self Care
[2023-02-10] MEDS: 0.9% Normal Saline (500mL Bag) 500 ML 1000 ML IV (16:01)
--- NOTE | 2023-02-10 16:01 | RAD_ITS ---
STUDY: X-RAY CHEST REASON FOR EXAM: Male, 87 years old. Weakness TECHNIQUE: Single AP portable view of the chest. COMPARISON: 12/21/2021. FINDINGS: The lungs are clear and expanded. There is no demonstrated pleural abnormality. Normal size heart. Normal mediastinum and david. Normal visualized pulmonary arteries. There is atherosclerotic tortuosity of the aortic arch and descending thoracic aorta. There are diffuse degenerative changes of the visualized thoracic spine. Normal visualized ribs, clavicles, and shoulders. There is no demonstrated abnormality of the visualized soft tissue structures of the upper abdomen. RAD/Chest 1 View (Portable) IMPRESSION: No definite acute or significant abnormality seen. Electronically Signed: Greg Ronquillo MD at 16:24 EST ,
[2023-02-10 16:15] LABS: Absolute Lymphocyte Count 0.99 X10^3/uL (0.83-4.51); Absolute Neutrophil Count 5.8 X10^3/uL (2.0-7.7); Basophil# 0.06 X10^3/uL; Basophil% 0.8 % (0-1); Eosinophil# 0.03 X10^3/uL; Eosinophils% 0.4 % (0-5); Hematocrit 36.2 % (40-54); Hemoglobin 10.6 g/dL (13.0-16.5); Lymphocyte # 0.99 X10^3/ul (0.83-4.51); Lymphocyte % 13.3 % (19-41); Mean Corp Hgb Conc 29.3 g/dL (32-36); Mean Corpuscular Volume 81.9 fL (80-94); Mean Platelet Vol. 9.9 fl (6.2-12.0); Monocyte# 0.54 X10^3/uL; Monocyte% 7.2 % (0-10); NRBC Flagged by Analyzer 0 % (0-5); Neutrophil # 5.81 X10^3/uL (2.7-7.7); Neutrophil % 77.9 % (47-70); Platelet Count 328 K/mm3 (150-450); RBC Distribution Width CV 14.1 % (11.6-14.6); RBC Distribution Width SD 41.8 fl (35.1-43.9); Red Blood Count 4.42 M/mm3 (4.6-6.2); White Blood Count 7.5 K/mm3 (4.4-11.0)
[2023-02-10 16:38] LABS: Anion Gap 2 (5-15); BUN 19 mg/dL (7-18); BUN/Creat Ratio 23.8 RATIO (10-20); Calcium,Total 8.9 mg/dL (8.5-10.1); Chloride 108 mmol/L (98-107); EST Glomerular Filtration Rate 97 mL/min (>60); Est Glom Filt Rate - Afr Amer 118 mL/min (>60); Estimated Creatinine Clearance 68.37 ml/min; Glucose 117 mg/dL (74-106); Sodium Level 140 mmol/L (136-145); Troponin-I HS 16 pg/mL (3.0-78.0)
[2023-02-10 16:45] LABS: International Normalized Ratio 1.2; Prothrombin Time (Protime)PT. 15.6 SECONDS (11.7-14.9)
[2023-02-10 16:46] LABS: Partial Thromboplast Time 26.3 Seconds (24.1-36.2)
[2023-02-10 16:59] VITALS: BP 153/68; PULSE 79; RESP 12; O2SAT 98
[2023-02-10 17:02] LABS: Bacteria 0 SEEN /hpf (None Seen); Mucous, Urine 0 SEEN /hpf (<or=2+); Red Blood Cells-Urine 0 SEEN /hpf (0-5); Squamous Epithelial Cells - UA 0 SEEN /hpf (0-5)
[2023-02-10 17:14] LABS: Color, Urine Yellow (Yellow); Glucose, Dipstick Normal (Normal); Ketone-Dipstick 5 mg/dl (Negative); Leukocyte Esterase-Dipstick 25 /ul (Negative); Nitrite-Dipstick Negative (Negative); Occult Blood-Urine Negative /ul (Negative); Protein-Dipstick 15 mg/dl (Negative); Specific Gravity, Urine 1.015 (1.002-1.030); Urine Clarity Clear (Clear); Urine Urobilinogen 4 mg/dl (Normal); Urine pH 6.5 (5.0 - 8.0)
[2023-02-10 17:21] LABS: Urine Bilirubin Dipstick 1 mg/dL (Negative)
[2023-02-10 17:27] LABS: White Blood Cells 0-5 SEEN /hpf (0-5)
== END 2023-02-10 19:05 | disposition home or self-care (01) ==
PROVIDERS: Emergency Provider Emergency Medicine; PCP Family Medicine; Visit Provider Emergency Medicine
DX: R53.1 Weakness (principal); R53.83 Other fatigue; Z87.891 Personal history of nicotine dependence; I25.10 Atherosclerotic heart disease of native coronary artery without angina pectoris; I10 Essential (primary) hypertension; Z86.73 Personal history of transient ischemic attack (TIA), and cerebral infarction without residual deficits; Z79.899 Other long term (current) drug therapy; Z79.01 Long term (current) 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; Z79.82 Long term (current) use of aspirin; Z90.49 Acquired absence of other specified parts of digestive tract; Z95.5 Presence of coronary angioplasty implant and graft
CPT/HCPCS: 71045; 80048; 81001; 84484; 85025; 85610; 85730; 87428; 90471; 93005; 96360; 99285; J7030

== ENCOUNTER 2024-09-01 07:31 | Inpatient (IN) | payer MEDICARE, SELFPAY ==
[2024-09-01] VITALS (8 sets, daily range): BP systolic 128–180; BP diastolic 60–96; PULSE 62–87; RESP 16–20; TEMP 36.8–38.4; O2SAT 93–99; BMI 23.4; BMI 21.6
--- NOTE | 2024-09-01 07:57 | RAD_ITS ---
PROCEDURE: HIPS B/L MIN 2 VIEWS W/ PELVIS 09/01/2024 REASON FOR EXAM: FALL AND PAIN TECHNIQUE: Three views of both hips were obtained. COMPARISON: None FINDINGS: Mild degree of joint space narrowing of both hip joints. No evidence of fracture or dislocation. Degenerative changes of the symphysis pubis. No pelvic fracture seen. RAD/Hips B/L min 2 views w/ Pelvis IMPRESSION: Degenerative changes of both hip joints. No fracture or dislocation present. Reading Location: [id number]
--- NOTE | 2024-09-01 07:58 | ED.VIS.FALL ---
HPI HPI - Fall History of Present Illness Chief Complaint: Fall Informant: patient and spouse/S.O. Occured/Mechanism Occurred: Today Mechanism/Context: Yes same level fall Usually ambulates: Without assistance Pain/Injury Pain Location: lower extremity Quality of Pain: Sharp Current Severity: Mild Associated Symptoms Associated Symptoms: Positive for Weakness and Inability to ambulate; Negative for Parasthesias, Loss of function, Loss of consciousness or Amnesia Narrative Narrative: 89-year-old male history of dementia on the blood thinner Coumadin due to prior TIAs and A-fib. He was in the bathroom today fell was unable to get up and is complaining of right hip pain. called the paramedics. He also fell yesterday. He has an abrasion to his left elbow. They do not believe that he hit his head. He denies any headache. Prior similar symptoms: No Recent Illness/Hospitalization: No PFSH PFS Medical History Chronic anticoagulation TIA (transient ischemic attack) Anticoagulant long-term use CAD (coronary artery disease) Home Medications ?Medication ?Instructions ?Recorded ?Last Taken ?Type warfarin 2.5 mg tablet 2.5 mg PO DAILY blood thinner 10/06/17 10/06/17 History atorvastatin 40 mg tablet 40 mg PO QHS #30 tabs 12/22/21 Unknown Rx lisinopril 10 mg tablet 10 mg PO DAILY #30 tabs 12/22/21 Unknown Rx memantine 10 mg tablet 10 mg PO BID 09/01/24 Unknown History rivastigmine 4.6 mg/24 hour 1 patch topical DAILY 09/01/24 Unknown History transdermal patch Allergy/AdvReac Type Severity Reaction Status Date / Time No Known Allergies Allergy Verified 09/01/24 07:35 Family History Other Alcoholism Surgical History Hx of appendectomy Stented coronary artery History of appendectomy Social History household members: spouse and significant other housing: house Smoking Status: Former smoker substance use type: does not use ROS ROS ED ROS Narrative Denies recent illness. Constitutional Constitutional ED: Denies chills or fever(s) Eyes Eyes: Denies blurry vision ENT ENT ED: Denies ear pain Cardiovascular Cardiovascular: Denies chest pain Respiratory/Chest Respiratory/Chest: Denies cough or dyspnea Gastrointestinal Gastrointestinal: Denies abdominal pain Genitourinary Genitourinary ED: Denies dysuria or hematuria Musculoskeletal Musculoskeletal: Denies arthralgias Integumentary Denies abscess or Abrasions Neurologic Neurologic: Denies headache(s) Psychiatric Psychiatric: Denies anxiety Endocrine Endocrinology: Denies polydipsia Hematologic/Lymphatic Hematologic/Lymphatic: Reports lymphadenopathy Allergic/Immunologic Allergic/Immunologic ED: Denies mouth swelling EXAM Physical Exam Narrative Exam Narrative: 89-year-old male sitting upright in bed. and I believe his daughter at bedside. No acute distress. Vital signs are stable. He is afebrile. His pulse ox is 98% on room air no hypoxia. H EENT exam pupils round reactive light. Extra motions are intact. He has no trauma or tenderness or bruising or abrasions to his face or scalp. C-spine and neck are nontender. Back and spine are nontender without any signs of trauma. Lungs clear to auscultation bilaterally. Heart A-fib rate in the 70s. Chest wall and ribs nontender. Abdomen soft nontender. Pelvic girdle intact. He has no shortening or rotation of either hip. He is able to flex and extend both hips. Femurs are nontender. There is no deformity. He has normal flexion extension of his knees and ankles. Normal dorsi plantarflexion. Upper extremities are nontender he is abrasion behind his left elbow but he can raise both arms over his head. He can flex extend his shoulders elbows and wrist. 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 Neurologically he is awake alert. Answering questions and following commands. He has dementia. Const Vital Signs: 09/01/24 07:31 09/01/24 07:36 09/01/24 09:31 Temperature 98.3 F Temperature Source Oral Pulse Rate 77 87 Respiratory Rate 16 18 Respiratory Effort Normal Non-Labored Respiratory Depth Normal Respiratory Pattern Normal Blood Pressure 170/86 H 180/89 H Blood Pressure Mean 114 119 Pulse Ox 98 98 99 Oxygen Delivery Method Room Air Room Air 09/01/24 09:52 Temperature 98.9 F Temperature Source Pulse Rate 87 Respiratory Rate 18 Respiratory Effort Respiratory Depth Respiratory Pattern Blood Pressure 180/89 H Blood Pressure Mean 119 Pulse Ox 99 Oxygen Delivery Method Positive well nourished and well developed General Appearance ED: well developed and NAD HEENT Reports normocephalic atraumatic; Negative for trauma, contusion, hematoma or tenderness Eyes PERRL and EOMs intact bilaterally Neck full ROM, no lymphadenopathy and supple Chest Wall inspection of chest normal and palpation of chest normal Resp normal respiratory effort, no retractions and clear to auscultation bilaterally Auscultation: Negative for rales, rhonchi or wheezes Cardio S1 normal heart sound, S2 normal heart sound and no murmurs; Negative for regular rate or regular rhythm Cardio Narrative: A-fib rate in the 70s. Rhythm: abnormal rhythm GI non-tender, non-distended and no masses Palpation: soft; Negative for guarding or rebound tenderness present Back/Spine no CVA tenderness Back/Spine Narrative: Back nontender no trauma. General Back: Negative for CVA tenderness Cervical Spine: Negative for cervical spine tenderness Lumbar Spine / Lower Back: Negative for lumbar spinal tenderness Neuro No oriented x3, CN's II-XII intact bilaterally, moves all extremities and no focal motor deficits Neuro Narrative: Awake and alert. Has dementia. Some confusion. At his baseline. Sensorium / Orientation: alert, oriented to person, orientation impaired and confused; Negative for oriented to place or oriented to time Motor Exam: strength 5/5 throughout Psych mental status grossly normal and thought process normal Skin Skin Narrative: Abrasion left posterior elbow. Nontender with normal range of motion. Lesions: no lesions Rashes: no rashes Trauma: abrasion MDM MDM MDM Narrative Medical decision making narrative: 89-year-old male fell at home in the bathroom complaining of hip pain exam is really not impressive he can move the hip there is no gross deformity nor shortening. X-rays to be taken of both hips. He does not need any pain meds. He is on Coumadin there is no signs of any head injury I do not think he needs a CT of his brain. He has no complaint of head pain or headache. And again there is no signs of trauma. Screening labs are also be obtained. Repeat exam patient doing well at 8:45 AM. I went over the x-ray results with both his and daughter. And the patient. Will going to try to get him up and ambulating. To see if he is able to walk. Multiple repeat exams patient is resting comfortably. I went over test results with he and family. When we try to get him up and walk him he was extremely weak and unsteady on his feet. He will be unable to be discharged to home. I added additional testing which was unremarkable. Spoke to and family who agreed with the admission. Spoke to the hospitalist and he will be admitted. History & Record Review Discussion w/independent historian: Patient and Family Additional record(s) reviewed:: Prior inpatient record, Prior outpatient record, Prior ED visit and Prior labs Lab Data Attestation: I reviewed the patient's lab results. Lab results narrative: CBC shows white count 12.9. H&H 11.6 and 36.8. Platelets 258. PT/INR was 21.4 and 1.8. Electrolytes show sodium 139. Gap 10. BUN and creatinine of 17 and 0.7. Glucose 112. UA normal. CT brain chronic changes. No acute bleed. Labs: Laboratory Results - last 24 hr 09/01/24 09/01/24 08:01 09:46 WBC 12.9 H RBC 4.72 Hgb 11.6 L Hct 36.8 L MCV 78.0 L MCH 24.6 L MCHC 31.5 L RDW Std Deviation 48.2 H RDW Coeff of [place]om 17.2 H Plt Count 258 MPV 9.4 Immature Gran % (Auto) 0.400 Neut % (Auto) 87.5 H Lymph % (Auto) 4.8 L [place] % (Auto) 5.7 Eos % (Auto) 1.2 Baso % (Auto) 0.4 Absolute Neuts (auto) 11.3 H Absolute Lymphs (auto) 0.62 L Nucleated RBC % 0 PT 21.4 H INR 1.8 Sodium 139 Potassium 3.7 Chloride 105 Carbon Dioxide 24.3 Anion Gap 10 BUN 17 Creatinine 0.77 Estim Creat Clear Calc 68.71 Est GFR (MDRD) Non-Af 86 BUN/Creatinine Ratio 21.6 H Glucose 112 H Calcium 8.8 Urine Color Yellow Urine Clarity Clear Urine pH 8.0 Ur Specific [place] 1.010 Urine Protein 15 H Urine Glucose (UA) Normal Urine Ketones Negative Urine Occult Blood 10 H Urine Nitrite Negative Urine Bilirubin Negative Urine Urobilinogen 4 H Ur Leukocyte Esterase Negative Urine RBC 0 SEEN Urine WBC 0 SEEN Ur Squamous Epith Cells 0 SEEN Urine Bacteria 0 SEEN Urine Mucus 0 SEEN Radiography Chest X-Ray - ED: 2 View, Read by ED Physician, Heart, Lungs, Mediastinum, Bony Structures, No Acute Disease and Chronic Changes Diagnostic Testing: Clinical Impression(s) from Imaging Studies Hip/Pelvis X-Ray 09/01/24 07:57 IMPRESSION: Degenerative changes of both hip joints. No fracture or dislocation present. Reading Location: [facility]--[address] 09/01/24 09:05 IMPRESSION: Cerebral atrophy. Mucosal thickening of the ethmoid sinuses as well as opacification of the left maxillary sinus. Reading Location: [facility]-IR-1 Chest X-Ray 09/01/24 09:25 IMPRESSION: No acute abnormality is seen. Reading Location: [facility]--1 Chest x-ray, 2 views, AP and lateral, interpreted by myself shows no acute abnormality. Also read by the radiologist and agrees its negative. Hip and pelvis x-ray. Of both the right and left hips. Showed arthritic changes. No fracture or dislocation. Interpreted again both by myself and the radiologist. Discharge Plan Dx/Rx/DC Orders Clinical Impression: Fall, Unable to ambulate, Contusion of hip, History of atrial fibrillation, History of TIAs, Chronic anticoagulation, History of dementia, Adult failure to thrive Disposition Disposition: Acute Care [facility]
[2024-09-01 08:11] LABS: Absolute Lymphocyte Count 0.62 X10^3/uL (0.83-4.51); Absolute Neutrophil Count 11.3 X10^3/uL (2.0-7.7); Basophil# 0.05 X10^3/uL; Basophil% 0.4 % (0-1); Eosinophil# 0.15 X10^3/uL; Eosinophils% 1.2 % (0-5); Hematocrit 36.8 % (40-54); Hemoglobin 11.6 g/dL (13.0-16.5); Lymphocyte # 0.62 X10^3/ul (0.83-4.51); Lymphocyte % 4.8 % (19-41); Mean Corp Hgb Conc 31.5 g/dL (32-36); Mean Corpuscular Hgb 24.6 pg (27.0-32.0); Mean Platelet Vol. 9.4 fl (6.2-12.0); Monocyte# 0.74 X10^3/uL; Monocyte% 5.7 % (0-10); NRBC Flagged by Analyzer 0 % (0-5); Neutrophil # 11.31 X10^3/uL (2.7-7.7); Neutrophil % 87.5 % (47-70); Platelet Count 258 K/mm3 (150-450); RBC Distribution Width CV 17.2 % (11.6-14.6); RBC Distribution Width SD 48.2 fl (35.1-43.9); Red Blood Count 4.72 M/mm3 (4.6-6.2); White Blood Count 12.9 K/mm3 (4.4-11.0)
[2024-09-01 08:27] LABS: Anion Gap 10 (5-15); BUN 17 mg/dL (4-19); BUN/Creat Ratio 21.6 RATIO (10-20); Calcium,Total 8.8 mg/dL (7.6-11.0); Carbon Dioxide 24.3 mmol/L (21.0-32.0); Chloride 105 mmol/L (98-108); Creatinine, Serum 0.77 mg/dL (0.70-1.20); EST Glomerular Filtration Rate 86 (>60); Estimated Creatinine Clearance 68.71 ml/min (50-250); Glucose 112 mg/dL (70-99); Potassium 3.7 mmol/L (3.3-5.1); Sodium Level 139 mmol/L (133-145)
[2024-09-01 08:31] LABS: International Normalized Ratio 1.8; Prothrombin Time (Protime)PT. 21.4 SECONDS (11.7-14.9)
--- NOTE | 2024-09-01 09:05 | CT_ITS ---
PROCEDURE: BRAIN/HEAD WITHOUT CONTRAST 09/01/2024 REASON FOR EXAM: FALL ON COUMADIN Dementia. TECHNIQUE: Head CT without intravenous contrast. Coronal and Sagittal reconstruction series were provided. One or more dose reduction techniques were used (e.g., Automated exposure control, adjustment of the mA and/or kV according to patient size, use of iterative reconstruction technique. RADIATION DOSE SUMMARY: CTDlvol: 44.99 mGy DLP: 849.54 mGycm COMPARISON: Prior study dated December 21, 2021. FINDINGS: Brain: Low density in the periventricular white matter suggests mild chronic small vessel ischemic changes. Calcification of the basal ganglia bilaterally. This is a normal variant for the patient's age. CSF Spaces: Moderate generalized cerebral atrophy Sinuses/Mastoids: Mucosal thickening of the ethmoid sinuses and opacification of the left maxillary sinus. Bones: No fracture. CT/Brain/Head without Contrast IMPRESSION: Cerebral atrophy. Mucosal thickening of the ethmoid sinuses as well as opacification of the left maxillary sinus. Reading Location: [place] [id number]
--- NOTE | 2024-09-01 09:25 | RAD_ITS ---
PROCEDURE: CHEST 1 VIEW (PORTABLE) 09/01/2024 REASON FOR EXAM: WEAKNESS TECHNIQUE: Frontal view of the chest. COMPARISON: Prior study dated February 10, 2023. FINDINGS: Hardware: EKG electrodes are seen Heart: Heart size is within normal limits. Lungs: Hyperinflation. No acute abnormality is seen. Bones: Degenerative changes are identified within the thoracic spine. Other: Atherosclerotic calcification of the aortic arch. RAD/Chest 1 View (Portable) IMPRESSION: No acute abnormality is seen. Reading Location: [place] [id number]
[2024-09-01 09:52] LABS: Bacteria 0 SEEN /hpf (None Seen); Mucous, Urine 0 SEEN /hpf (<or=2+); Red Blood Cells-Urine 0 SEEN /hpf (0-5); Squamous Epithelial Cells - UA 0 SEEN /hpf (0-5); White Blood Cells 0 SEEN /hpf (0-5)
[2024-09-01 09:58] LABS: Color, Urine Yellow (Yellow); Glucose, Dipstick Normal (Normal); Ketone-Dipstick Negative (Negative); Leukocyte Esterase-Dipstick Negative /ul (Negative); Nitrite-Dipstick Negative (Negative); Occult Blood-Urine 10 /ul (Negative); Protein-Dipstick 15 mg/dl (Negative); Urine Bilirubin Dipstick Negative (Negative); Urine Clarity Clear (Clear); Urine Urobilinogen 4 mg/dl (Normal)
--- NOTE | 2024-09-01 10:18 | PCM.HP.STD ---
HPI - General General Date of Admission: 09/01/24 Date of Service: 09/01/24 Chief Complaint: mechanical fall HPI Narrative GERONIMO HOPSON, is a 89 M with a PMH as outlined who presents via the ED On 09/01/2024 with a complaint of weakness and mechanical fall. He fell whilst in the bathroom this morning.He had also fallen the day before admission. He is on coumadin on account of afib. He complained of hip discomfort after hte fall. He did not hit his head. He denied any dizziness, lightheadedness, nausea, vomiting or any other symptoms. He could not ambulate in the ED due to mechanical fall. Review of systems was otherwise negative. History was mainly obtained from his significant other and his daughter. According to the significant other he had fallen further 2 prior days as stated and also said his last fall was about a year ago. She said his legs just gave way and he fell. He was unable to get up and they had to call the EMS to get him up. He did not hit his head. As far as she knew he had not had any lightheadedness or dizziness, palpitations, nausea vomiting or any other such symptoms. Vitals in the ED were BP of 180/89, DE of 87, RR of 18 and temp of 98.9F. He was saturating at 99% on room air. CBC showed Hb of 11.6, wbc of 12.98 and platelets of 258. INR was 1.8. Chemistry showed sodium of 139, potassium of 3.7 and anion gap of 10. Cr was 0.77. URinalysis showed no evidence of UTI. CT brain showed cerebral atrophy and mucosal thickening of the ethmoid sinuses as well as opacification of the left maxillary sinus. Xray of the hip and pelvic xray showed miuld degree of joint space narrowing of both hip joints and no evidence of fracture or dislocation. He is being admitted to be managed for debility and weakness due to mechanical fall. [facility] Medical History Chronic anticoagulation TIA (transient ischemic attack) Anticoagulant long-term use CAD (coronary artery disease) Home Medications ?Medication ?Instructions ?Recorded ?Last Taken ?Type warfarin 2.5 mg tablet 2.5 mg PO DAILY blood thinner 10/06/17 10/06/17 History atorvastatin 40 mg tablet 40 mg PO QHS #30 tabs 12/22/21 Unknown Rx lisinopril 10 mg tablet 10 mg PO DAILY #30 tabs 12/22/21 Unknown Rx memantine 10 mg tablet 10 mg PO BID 09/01/24 Unknown History rivastigmine 4.6 mg/24 hour 1 patch topical DAILY 09/01/24 Unknown History transdermal patch Allergy/AdvReac Type Severity Reaction Status Date / Time No Known Allergies Allergy Verified 09/01/24 07:35 Family History Other Alcoholism Surgical History Hx of appendectomy Stented coronary artery History of appendectomy Social History household members: spouse and significant other housing: house Smoking Status: Former smoker substance use type: does not use ROS ROS Narrative mainly obtained from significant other and daughter Constitutional Constitutional: Reports fatigue, malaise and weakness; Denies anorexia, chills or fever(s) Eyes Eyes: Denies change in vision ENT HEENT: Denies dysphagia, headache(s) or sinus pressure Cardiovascular Cardiovascular: Reports paroxysmal nocturnal dyspnea; Denies chest pain, dyspnea on exertion, edema, lightheadedness, orthopnea, palpitations or rapid heart rate Respiratory/Chest Respiratory/Chest: Denies cough, dyspnea, shortness of breath at rest or shortness of breath with exertion Gastrointestinal Gastrointestinal: Denies constipation, nausea or vomiting Genitourinary Genitourinary: Denies dysuria Neurologic Neurologic: Reports confusion; Denies dizziness, focal weakness or headache(s) Vital Signs Vital Signs Vital Signs: 09/01/24 07:31 09/01/24 07:36 09/01/24 09:31 Temperature 98.3 F Temperature Source Oral Pulse Rate 77 87 Respiratory Rate 16 18 Respiratory Effort Normal Non-Labored Respiratory Depth Normal Respiratory Pattern Normal Blood Pressure 170/86 H 180/89 H Blood Pressure Mean 114 119 Pulse Ox 98 98 99 Oxygen Delivery Method Room Air Room Air 09/01/24 09:52 Temperature 98.9 F Temperature Source Pulse Rate 87 Respiratory Rate 18 Respiratory Effort Respiratory Depth Respiratory Pattern Blood Pressure 180/89 H Blood Pressure Mean 119 Pulse Ox 99 Oxygen Delivery Method Weight Weight: 173 lb 1.006 oz Body Mass Index (BMI) 23.4 Physical Exam Const alert Constitutional Narrative: frail, weak, confused General Appearance: cooperative Orientation / Consciousness: confused and disoriented HEENT normocephalic and head/scalp atraumatic HEENT Narrative: dry oral mucosa Eyes EOMs intact bilaterally and conjunctivae normal Neck supple and no JVD Resp normal respiratory effort, no use of accessory muscles and clear to auscultation bilaterally Cardio regular rate, regular rhythm, S1 normal heart sound, S2 normal heart sound and no murmurs GI normal to inspection, nondistended, normoactive bowel sounds, soft to palpation, non-tender and non-distended Extremity normal to inspection, full ROM and no clubbing, cyanosis or edema Neuro Neuro Narrative: alert, confused, moves all extremities, weak and frail. Psych Psych Narrative: flat affect Results Lab / Micro Data 09/01/24 08:01 09/01/24 08:01 Labs: Laboratory Results - last 24 hr 09/01/24 08:01: WBC 12.9 H, RBC 4.72, Hgb 11.6 L, Hct 36.8 L, MCV 78.0 L, MCH 24.6 L, MCHC 31.5 L, RDW Std Deviation 48.2 H, RDW Coeff of Boom 17.2 H, Plt Count 258, MPV 9.4, Immature Gran % (Auto) 0.400, Neut % (Auto) 87.5 H, Lymph % (Auto) 4.8 L, [place] % (Auto) 5.7, Eos % (Auto) 1.2, Baso % (Auto) 0.4, Absolute Neuts (auto) 11.3 H, Absolute Lymphs (auto) 0.62 L, Nucleated RBC % 0, PT 21.4 H, INR 1.8, Sodium 139, Potassium 3.7, Chloride 105, Carbon Dioxide 24.3, Anion Gap 10, BUN 17, Creatinine 0.77, Estim Creat Clear Calc 68.71, Est GFR (MDRD) Non-Af 86, BUN/Creatinine Ratio 21.6 H, Glucose 112 H, Calcium 8.8 09/01/24 09:46: Urine Color Yellow, Urine Clarity Clear, Urine pH 8.0, Ur Specific [place] 1.010, Urine Protein 15 H, Urine Glucose (UA) Normal, Urine Ketones Negative, Urine Occult Blood 10 H, Urine Nitrite Negative, Urine Bilirubin Negative, Urine Urobilinogen 4 H, Ur Leukocyte Esterase Negative, Urine RBC 0 SEEN, Urine WBC 0 SEEN, Ur Squamous Epith Cells 0 SEEN, Urine Bacteria 0 SEEN, Urine Mucus 0 SEEN Imaging Radiology Impression Hip/Pelvis X-Ray 09/01/24 07:57 IMPRESSION: Degenerative changes of both hip joints. No fracture or dislocation present. Reading Location: [facility]-IR-[address] 09/01/24 09:05 IMPRESSION: Cerebral atrophy. Mucosal thickening of the ethmoid sinuses as well as opacification of the left maxillary sinus. Reading Location: [facility]-IR-1 Chest X-Ray 09/01/24 09:25 IMPRESSION: No acute abnormality is seen. Reading Location: [facility]-IR-1 Assessment & Plan Assessment/Plan (1) Adult failure to thrive: (2) Fall: (3) Unable to ambulate: (4) Contusion of hip: PLAN: Plan #Debility and weakness due to mechanical falls Patient admitted with a complaint of mechanical falls. He fell on the day of admission and also fell the day before. His legs just gave way. The EMS had to be called both times to get him off. states the last time he fell was about 2 years ago. He is on Coumadin for A-fib. Imaging done showed no evidence of any fractures. CT of the brain showed no evidence of intracranial bleed. Admit to [facility]. Hydrate gently with IV fluids. PT OT on board. Fall precautions. #History of A-fib: On Coumadin. INR is 1.8. Not on any rate or rhythm limiting medication. I spoke to the patient's daughter and extensively about the risk of brain bleed with his history of falls as well as the risk of stroke if he is taking of the Coumadin. I explained to them that would have to be a shared decision making process and the remaining power to make the decision they felt was in the best interest of the patient. The daughter is the healthcare power of sales [employer] business [employer]. In light of patient's confusion in the setting of dementia, she would ultimately have to make decisions feels in the best interest of her father. She was counseled that she would need to think about it and let the medical team know what she had decided. #History of dementia: On rivastigmine #Dyslipidemia: On statin #Benign essential hypertension: On lisinopril. DVT prophylaxis: SCDs for now. Hold Coumadin in light of patient who had a mechanical fall today. Will resume tomorrow unless family decides that they wants this medication to be stopped. Code status: DNRCCA no intubation Patient counseled extensively about different types of CODE STATUS including full code, DNR CCA and DNR CCA. PEr and daughter. Patient would not want CPR or intubation and has always been clear about that to them. They will therefore elect for him to be DNR CCA no intubation. Total [id number] time 16 minutes. Charges/Coding Visit Charges Inpatient E&M: 52239 Init Hosp L3 Procedures Hospitalists Procedures: 25532 Advncd Care Plan 30 Min
[2024-09-01] MEDS: 0.9% Normal Saline (1000mL) 1,000 ML 125 ML IV (13:53)
[2024-09-01] MEDS: 0.9% Saline Lock 10 ML Syringe IV ×3 (13:53→23:50)
[2024-09-01] MEDS: Acetaminophen 325 MG Tablet 650 MG PO (19:16)
--- NOTE | 2024-09-01 19:53 | PCM.HOSP.N ---
Hospitalist Note Called regarding Mr. Flores having a temperature of 101.1. He was given Tylenol. Reviewed admitting note and it appears he came in for generalized weakness and mechanical fall. He had also had a fall the day prior to presentation. It does not sound like he any other significant symptoms at the time of presentation. Upon review of his CBC he did have a leukocytosis and a left shift with an 87.5% neutrophilia. UA was unremarkable and chest x-ray was not suggestive of infection. He is hemodynamically stable. Will check sed rate, CRP, procalcitonin, COVID-19, respiratory viral panel, blood cultures, and start Vanco and Zosyn for now as the etiology of this fever is unclear at this time however with his leukocytosis and left shift I would be worried about an infection. Again source is not clear at this time. Monitor hemodynamics with the initiation of antibiotics.
--- OUTSIDE RECORDS SUMMARY | 2024-09-01 20:33 | XMS RPT_ITS | CCD ---
Author Organization [facility] Care Team Providers Care Trust Manager Name Role Phone AISHA OLIVEIRANETH E Unavailable Unavailable TEE DARRELL E Unavailable Unavailable AISHA OLIVEIRANETH Unavailable Unavailable DARRELL OLIVEIRA Unavailable Unavailable Stas Mora Unavailable Unavailable DARRELL OLIVEIRA Unavailable Unavailable DARRELL OLIVEIRA Unavailable Unavailable Stas Mora Unavailable Unavailable Stas Mora MD Primary Care Provider 13, Pharmacist Unavailable Stas Mora MD Primary Care Provider 13, Pharmacist Unavailable Stas Mora MD Primary Care Provider Dr. Stas Mora Primary Care Provider [phone] Dr. Inderjit Gillespie Emergency Provider Dr. Dirk Us Admit Provider Dr. Dirk Us Attending Provider Dr. Dirk Us Other Provider Dr. Spike Preston Attending Provider Dr. Spike Preston Other Provider Stas Mora MD Primary Care Provider 13, Pharmacist Unavailable PHYSICIAN, NONE Primary Care Physician Unavailab Stas Menjivar Primary Care Unavailable Brian Cunningham Attending Unavailable Stas Mora MD Primary Care Provider PAYTON IBANEZ DO Attending Unavailable PHYSICIAN, NONE Primary Care Unavailable PHYSICIAN, NONE Primary Care Unavailable [facility] DO Attending Unavailable Tannhof SENIOR TECHNICAL RECRUITER.SHIRT FOLDING MACHINE OPERATOR, Jenna Unavailable Caio SENIOR TECHNICAL RECRUITER.SHIRT FOLDING MACHINE OPERATOR, Elvis Unavailable GANTA, LUCIANA C Referring Unavailable ELDERBROCK, STAS D Primary Care Unavailable Tannhof SENIOR TECHNICAL RECRUITER.SHIRT FOLDING MACHINE OPERATOR, Jenna Unavailable Unavail able Tannhof SENIOR TECHNICAL RECRUITER.SHIRT FOLDING MACHINE OPERATOR, Jenna Unavailable ELDERBROCK, STAS D Primary Care Unavailable ELDERBROCK, STAS D Referring Unavailable ELDERBROCK, STAS D Primary Care Unavailable ELDERBROCK, STAS D Attending Unavailable ELDERBROCK, STAS D Primary Care Unavailable ELDERBROCK, STAS D Referring Unavailable ELDERBROCK, STAS D Primary Care Unavailable ELDERBROCK, STAS D Referring Unavailable ELDERBROCK, STAS D Primary Care Unavailable ELDERBROCK, STAS D Referring Unavailable ELDERBROCK, STAS D Primary Care Unavailable ELDERBROCK, STAS D Attending Unavailable ELDERBROCK, STAS D Primary Care Unavailable ELDERBROCK, STAS D Referring Unavailable ELDERBROCK, STAS D Primary Care Unavailable ELDERBROCK, STAS D Referring Unavailable ELDERBROCK, STAS D Primary Care Unavailable ELDERBROCK, STAS D Referring Unavailable ELDERBROCK, STAS D Primary Care Unavailable ELDERBROCK, STAS D Referring Unavailable ELDERBROCK, STAS D Primary Care Unavailable ELDERBROCK, STAS D Referring Unavailable ELDERBROCK, STAS D Primary Care Unavailable ELDERBROCK, STAS D Attending Unavailable ELDERBROCK, STAS D Primary Care Unavailable GANTA, LUCIANA Referring Unavailable ELDERBROCK, STAS D Primary Care Unavailable ELDERBROCK, STAS D Referring Unavailable GANTA, LUCIANA Attending Unavailable ELDERBROCK, STAS D Primary Care Unavailable ELDERBROCK, STAS D Referring Unavailable ELDERBROCK, STAS D Primary Care Unavailable ELDERBROCK, STAS D Referring Unavailable ELDERBROCK, STAS D Primary Care Unavailable ELDERBROCK, STAS D Attending Unavailable ELDERBROCK, STAS D Primary Care Unavailable ELDERBROCK, STAS D Referring Unavailable ELDERBROCK, STAS D Primary Care Unavailable ELDERBROCK, STAS D Referring Unavailable ELDERBROCK, STAS D Primary Care Unavailable ELDERBROCK, STAS D Referring Unavailable ELDERBROCK, STAS D Primary Care Unavailable ELDERBROCK, STAS D Referring Unavailable ELDERBROCK, STAS D Primary Care Unavailable ELDERBROCK, STAS D Referring Unavailable ELDERBROCK, STAS D Primary Care Unavailable ELDERBROCK, STAS D Referring Unavailable STAS MORA Primary Care Unavailable STAS MORA Referring Unavailable STAS MORA Primary Care Unavailable STAS MORA Referring Unavailable STAS MORA Primary Care Unavailable STAS MORA Referring Unavailable STAS MORA Primary Care Unavailable LUCIANA CISNEROS Attending Unavailable STAS MORA Primary Care Unavailable STAS MORA Attending Unavailable Morgan POLANCO, Dr. Ruiz Primary Care Provider Jose Miguel POLANCO, Dr. Jansen Emergency Provider Priscilla POLANCO, Dr. Kathy Bearden Admit Provider [phone] Priscilla POLANCO, Dr. 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 90 tablet 3 05/26/2024 Active Start: 07-16-2021 End: 07-17-2021 take 1 tablet by mouth once daily at bedtime for hyperlipidemia atorvastatin (LIPITOR) 20 mg tablet Take 1 tablet by mouth daily at bedtime. For cholesterol. 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 90 tablet 3 10/14/2019 07/13/2020 Discontinued Comment on above: Take 1 tablet by darrian th daily at bedtime. For cholesterol. Take 40 mg by mouth daily at bedtime. Take 1 tablet by darrian th daily at bedtime. furosemide 20 mg oral tablet (20 sources) Loop Diuretic Start: 09-15-19 End: 05-27-19 take 1 tablet by mouth once daily as needed furosemide (LASIX) 20 mg tablet Indications: Edema of both lower legs Take 1 tablet by mouth once daily as needed. 30 tablet 5 09/15/2023 05/26/2024 Discontinued (Course of therapy completed) lisinopril 10 mg oral tablet (20 sources) Angiotensin Converting Enzyme Inhibitor Start: 12-23-19 End: 11-26-19 take 1 tablet by mouth once daily lisinopril (ZESTRIL) 10 mg tablet Indications: Essential hypertension, benign Take 1 tablet by mouth once daily. 90 tablet 3 11/26/2023 Active Comment on above: Take by mouth. Take 1 tablet by darrian once daily. memantine hydrochloride 10 mg oral tablet (10 sources) Q-mdalum-P-aspartate Receptor Antagonist Start: 06-02-19 End: 11-29-19 take 1 tablet by mouth twice daily memantine (NAMENDA) 10 mg tablet Take 1 tablet by mouth two times a day. 60 tablet 5 06/01/2024 11/28/2024 Active metoprolol tartrate 50 mg oral tablet (1 source) beta-Adrenergic Jazmin Start: 01-02-20 Lopressor 50 mg oral tablet Dose : 25 mg = 0.5 tab(s), PO, BID, 0 Refill(s), current med (Hx) Start Date: 01/01/06 Status: Ordered 24 hr rivastigmine 0.192 mg/hr transdermal system (4 sources) Start: 09-02-19 Rivastigmine 4.6 mg/24 hour patch 24 hour Active 1 NMA TOPICAL DAILY September 01, 2024 12:00am Start: 08-31-2024 apply 1 dose transde rmal route once daily rivastigmine (EXELON) 4.6 mg/24 hour patch Apply 1 patch as directed once daily. 30 patch 5 08/31/2024 Active tamsulosin hydrochloride 0.4 mg oral capsule (20 sources) alpha-Adrenergic Jazmin Start: 03-03-2023 End: 05-26-2024 take 1 capsule by mouth once daily at bedtime tamsulosin (FLOMAX) 0.4 mg Indications: Urinary frequency Take 1 capsule by mouth daily at bedtime. 30 capsule 5 03/03/2023 05/26/2024 Discontinued (Discontinued by Patient) Comment on above: Take 1 capsule by mo [facility] daily at bedtime. vardenafil 10 mg oral tablet (1 source) Phosphodiesterase 5 Inhibitor Start: 01-01-2006 take 1 tablet by mouth once daily as needed vardenafil 10 mg oral tablet See Instructions, PO daily as needed, 0 Refill(s), current med (Hx) Start Date: 01/01/06 Status: Ordered warfarin sodium 3 mg oral tablet (20 sources) Vitamin K Antagonist Start: 01-04-2024 End: 01-03-2025 warfarin (COUMADIN) 3 mg tablet Indications: Paroxysmal atrial fibrillation (HCC) Take as directed by anticoagulation clinic 03/03/2024 Active Start: 06-08-2023 End: 05-26-2024 take 1 tablet by mouth once daily warfarin (COUMADIN) 1 mg tablet Take 1 tablet by mouth daily as directed. 30 tablet 06/24/2023 Active Start: 09-22-2019 End: 06-23-2022 warfarin (COUMADIN) 2.5 mg t ablet TAKE 5 MG EVERY MON, DIXIE 2.5 MG ALL OTHER DAYS 135 tablet 3 06/23/2022 Active Start: 10-06-2017 End: 03-03-2024 warfarin (COUMADIN) 2.5 mg t ablet Take as directed by anticoagulation clinic 30 tablet 03/03/2024 Active Comment on above: 5 mg every Mon, Dixie; 2.5 mg all other days TAKE 5 MG EVERY MON, DIXIE 2.5 MG ALL OTHER DAYS Take 2.5 mg everyday Take 2.5 mg everyday except 3.75 mg on Fridays Take 1 tablet by darrian once daily. Take 1 tablet by darrian daily as directed. Completed/Discontinued Medications Medication Drug Class(es) Dates Sig (Normalized) Sig (Original) acyclovir 0.05 mg/mg topical ointment (3 sources) Herpesvirus Nucleoside Analog DNA Polymerase Inhibitor, Herpes Simplex Virus Nucleoside Analog DNA Polymerase Inhibitor, Herpes Zoster Virus Nucleoside Analog DNA Polymerase Inhibitor Start: 11-08-2020 End: 07-08-2021 acyclovir (ZOVIRAX) 5 % ointment Apply to affected area five times daily. 5 g 1 11/08/2020 07/08/2021 Discontinued Comment on above: Apply to affected ar ea five times daily. 12 hr amoxicillin 1000 mg / clavulanate 62.5 mg extended release oral tablet (3 sources) Penicillin-class Antibacterial Start: 02-11-2021 End: 07-08-2021 Amoxicillin-Pot Clavulanate (AUGMENTIN SR) 1,000-62.5 mg per tablet Q12H 0 02/11/2021 07/08/2021 Discontinued Comment on above: Q12H aspirin 81 mg chewable tablet (20 sources) Platelet Aggregation Inhibitor, Nonsteroidal Anti-inflammatory Drug Start: 01-01-2006 take 1 dose by mouth once daily aspirin Dose : 81 mg =, PO, Daily, 0 Refill(s), current med (Hx) Start Date: 01/01/06 Status: Ordered Start: 10-07-2005 End: 09-01-2024 take 1 tablet by mouth at breakfast Aspirin 81 mg Tablet,Chewable Discontinued 81 mg PO WITH BREAKFAST December 22, 2021 12:00am September 01, 2024 7:38am Comment on above: Take one(1) tablet d aily. Take 1 tablet by darrian th once daily. 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 90 tablet 3 11/26/2023 07/28/2024 Discontinued (Discontinued by another Health Care Provider) fosinopril sodium 10 mg oral tablet (20 sources) Angiotensin Converting Enzyme Inhibitor Start: 2005 End: 2022 take 1 tablet by mouth once daily fosinopril (MONOPRIL) 10 mg tablet Take 1 tablet by mouth once daily. 90 tablet 3 02/02/2018 08/26/2022 Discontinued Comment on above: Take 1 tablet by darrian th once daily. methylPREDNISolone (1 source) Corticosteroid Start: 2019 End: 2019 methylPREDNISolone (MEDROL, SOFÍA,) 4 mg Dose-Pack Indications: Acute right-sided low back pain, unspecified whether sciatica present Follow dosing instructions, take with food. 1 Package 03/12/2020 03/18/2020 simvastatin 40 mg oral tablet (6 sources) HMG-CoA Reductase Inhibitor Start: 2005 End: 2021 simvastatin (ZOCOR) 40 mg tablet 40 mg. 0 09/08/2016 07/16/2021 Discontinued Comment on above: 40 mg. 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; Translations: [Coronary atherosclerosis] Onset: 10-07-2005 06-26-2017 Chronic Delirium, dementia, and amnestic and other cognitive disorders (14 sources) Vascular dementia ; Translations: [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, psychotic disturbance, mood disturbance, or anxiety (HCC)] Onset: 04-27-2024 08-14-2023 Chronic Diabetes mellitus without complication (4 sources) Hyperglycemia; Translations: [Hyperglycemia, unspecified] 02-19-2021 Episodic Disorders of lipid metabolism (20 sources) Dyslipidemia; Translations: [Hyperlipidemia, unspecified] Onset: 08-26-2022 Chronic E Codes: Fall (2 sources) Fall; Translations: [Unspecified fall, initial encounter] 09-01-2024 Episodic Essential hypertension (20 sources) Benign essential hypertension; Translations: [Essential (primary) hypertension] Onset: 10-07-2005 10-07-2005 Chronic Fluid and electrolyte disorders (4 sources) Lactic acidosis; Translations: [Acidosis] 02-19-2021 Episodic Genitourinary symptoms and ill-defined conditions (1 source) Increased frequency of urination; Translations: [Frequency of micturition] 11-26-2023 Episodic Late effects of cerebrovascular disease (3 sources) Sequela of cerebrovascular accident; Translations: [Unspecified sequelae of cerebral infarction] 06-01-2023 Chronic Malaise and fatigue (4 sources) Asthenia; Translations: [Weakness] Onset: 02-16-2023 02-10-2023 Episodic Open wounds of head; neck; and trunk (1 source) Laceration of head; Translations: [Laceration without foreign body of other part of head, initial encounter] Onset: 11-17-2022 Episodic Osteoarthritis (20 sources) Localized, primary osteoarthritis; Translations: [Unilateral primary osteoarthritis, unspecified knee] Onset: 10-07-2005 10-07-2005 Chronic Other aftercare (4 sources) Patient encounter status; Translations: [Encounter for therapeutic drug level monitoring] Episodic Other aftercare (1 source) Post-discharge follow-up; Translations: [Encounter for follow-up examination after completed treatment for conditions other than malignant neoplasm] Episodic Other circulatory disease (2 sources) H/O: atrial fibrillation; Translations: [Personal history of other diseases of the circulatory system] 09-01-2024 Episodic Other circulatory disease (2 sources) History of transient ischemic attack; Translations: [Personal history of transient ischemic attack (TIA), and cerebral infarction without residual deficits] 09-01-2024 Episodic Other connective tissue disease (1 source) Neurological symptom; Translations: [Unspecified symptoms and signs involving the nervous system] Episodic Other connective tissue disease (1 source) Unspecified symptoms and signs involving the nervous system; Translations: [Other symptoms involving nervous and musculoskeletal systems] Episodic Other connective tissue disease (2 sources) Other bursitis of elbow, right elbow; Translations: [Olecranon bursitis] Onset: 07-28-2024 07-28-2024 Episodic Other hereditary and degenerative nervous system conditions (2 sources) Impaired cognition; Translations: [Mild cognitive impairment, so stated] 04-27-2024 Chronic Other hereditary and degenerative nervous system conditions (2 sources) Mild cognitive impairment, so stated; Translations: [Cognitive impairment, mild, so stated] Onset: 04-27-2024 Chronic Other injuries and conditions due to external causes (1 source) Injury of head; Translations: [Unspecified injury of head, initial encounter] Onset: 11-17-2022 Episodic Other nervous system disorders (1 source) Walking disability; Translations: [Difficulty in walking, not elsewhere classified] 04-27-2024 Chronic Other nervous system disorders (1 source) Vascular parkinsonism; 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 Other nervous system disorders (1 source) Vascular parkinsonism; 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)] Onset: 06-01-2024 Chronic Other nervous system disorders (1 source) Difficulty in walking, not elsewhere classified; Translations: [Ambulatory dysfunction] Onset: 04-27-2024 Chronic Other nervous system disorders (2 sources) Unable to walk; Translations: [Difficulty in walking, not elsewhere classified] 09-01-2024 Chronic Other nervous system disorders (2 sources) Disturbance in speech; Translations: [Unspecified speech disturbances] 02-16-2023 Episodic Other nervous system disorders (2 sources) Impaired cognition; Translations: [Other symptoms and signs involving cognitive functions and awareness] 04-27-2024 Episodic Other nervous system disorders (1 source) Shuffling gait; Translations: [Other abnormalities of gait and mobility] 04-27-2024 Episodic Other nervous system disorders (1 source) Impairment of balance; Translations: [Other abnormalities of gait and mobility] 04-27-2024 Episodic Other non-traumatic joint disorders (1 source) Hip pain; Translations: [Pain in left hip] 05-21-2022 Episodic Other nutritional; endocrine; and metabolic disorders (2 sources) Adult failure to thrive syndrome; Translations: [Adult failure to thrive] 09-01-2024 Episodic Other screening for suspected conditions (not mental disorders or infectious disease) (4 sources) INR raised; Translations: [Abnormal coagulation profile] Onset: 05-25-2024 Episodic Pneumonia (except that caused by tuberculosis or sexually transmitted disease) (4 sources) Community acquired pneumonia; Translations: [Pneumonia, unspecified organism] 02-10-2021 Episodic Residual codes; unclassified (3 sources) Bilateral lower leg edema; Translations: [Localized edema] 09-15-2023 Episodic Residual codes; unclassified (1 source) Hallucinations; Translations: [Hallucinations, unspecified] 08-31-2024 Episodic Screening and history of mental health and substance abuse codes (2 sources) H/O: dementia; Translations: [Personal history of other mental and behavioral disorders] 09-01-2024 Episodic Spondylosis; intervertebral disc disorders; other back problems (1 source) Acute low back pain; Translations: [Acute right-sided low back pain, unspecified whether sciatica present] 03-12-2020 Episodic Superficial injury; contusion (3 sources) Contusion of hip; Translations: [Contusion of unspecified hip, initial encounter] 09-01-2024 Episodic Syncope (4 sources) Syncope; Translations: [Syncope and collapse] 09-08-2016 Episodic Thyroid disorders (1 source) Thyroid nodule; Translations: [Nontoxic single thyroid nodule] Chronic Transient cerebral ischemia (7 sources) Transient cerebral ischemia; Translations: [Transient cerebral ischemic attack, unspecified] Chronic Unclassified (1 source) Unknown / UNK(Unknown) Onset: 06-02-2017 Unclassified (1 source) heart cath Onset: 03-23-2005 01-05-2006 Past or Other Problems Problem Classification Problem Date Documented Date Episodic/Chronic Diseases of mouth; excluding dental (20 sources) Mucocele of lower lip; 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] Onset: 04-24-2011 04-24-2011 Episodic Neoplasms of unspecified nature or uncertain behavior (20 sources) Neoplasm of lip; 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] Onset: 04-24-2011 04-24-2011 Episodic Other aftercare (20 sources) Long-term current us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; Translations: [[facility] (current) 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] Onset: 09-22-2016 Episodic Other aftercare (3 sources) 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; Translations: [Long-term (current) 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] Onset: 07-19-2018 Episodic Other nervous system disorders (1 source) Other symptoms and signs involving cognitive functions and awareness; Translations: [Cognitive impairment] Onset: 04-27-2024 Episodic Other nervous system disorders (2 sources) Other abnormalities of gait and mobility; Translations: [Shuffling gait] Onset: 04-27-2024 Episodic Results Test Name Value Interpretation Reference Range Facility Absolute lymphocyte countOrd ered By: Inderjit Gillespie on 09-01-2024 Lymphocytes Auto (Unsp spec) [#/Vol] 0.62 10*3/uL Low 0.83-4.51 [facility] Absolute neutrophil countOrd ered By: Inderjit Gillespie on 09-01-2024 Neutrophils (Bld) [#/Vol] 11.3 10*3/uL High 2.0-7.7 [facility] Anion gap in Serum or Plasma Ordered By: Inderjit Gillespie on 09-01-2024 Anion gap [Moles/Vol] 10 mmol/L 5-15 [facility] Automated lymphocyte count a s percentage of total leukocytesOrdered By: Inderjit Gillespie on 09-01-2024 Lymphocytes/100 WBC Auto (Unsp spec) 4.8 % Low 19-41 [facility] BUN/creatinine ratioOrdered By: Inderjit Gillespie on 09-01-2024 Urea nitrogen/Creatinine [Mass ratio] 21.6 mg/mg High 10-20 [facility] Basophil percentageOrdered B y: Inderjit Gillespie on 09-01-2024 Basophils/100 WBC (Bld) 0.4 % 0-1 [facility] Bilirubin Test strip Ql (U)O rdered By: Inderjit Gillespie on 09-01-2024 Bilirubin Ql (U) Negative Negative [facility] Carbon dioxide, total [Moles /volume] in Central venous bloodOrdered By: Inderjit Gillespie on 09-01-2024 CO2 [Moles/Vol] 24.3 mmol/L 21.0-32.0 [facility] Chloride assayOrdered By: Aries Gillespie on 09-01-2024 Chloride [Moles/Vol] 105 mmol/L 98-108 [facility] Eosinophil percentageOrdered By: Inderjit Gillespie on 09-01-2024 Eosinophils/100 WBC (Bld) 1.2 % 0-5 [facility] Erythrocyte distribution wid th ratioOrdered By: Inderjit Gillespie on 09-01-2024 Erythrocyte distribution width (RBC) [Ratio] 17.2 % High 11.6-14.6 [facility] Erythrocyte distribution wid th standard deviationOrdered By: Inderjit Gillespie on 09-01-2024 Erythrocyte distribution width (RBC) [Ratio] 48.2 fl High 35.1-43.9 [facility] Glomerular filtration rate ( GFR) estimation/1.73 sq m using serum, plasma, or whole bOrdered By: Inderjit Gillespie on 09-01-2024 GFR/1.73 sq M.predicted among non-blacks MDRD (S/P/Bld) [Vol rate/Area] 86 mL/min/{1.73_m2} >60 [facility] Comment on above: mL/min/1.73m2 CKD-EP I Creatinine Equation (2020) Hematocrit Auto (Bld) [Volum e fraction]Ordered By: Inderjit Gillespie on 09-01-2024 Hematocrit (Bld) [Volume fraction] 36.8 % Low 40-54 [facility] Hemoglobin measurementOrdere d By: Inderjit Gillespie on 09-01-2024 Hemoglobin (Bld) [Mass/Vol] 11.6 g/dL Low 13.0-16.5 [facility] Immature granulocytes/100 WB C Auto (Bld)Ordered By: Inderjit Gillespie on 09-01-2024 Immature granulocytes/100 WBC (Bld) 0.400 % 0.0-0.9 [facility] Comment on above: IG% - Immature Granu locytes (promyelocytes, myelocytes and metamyelocytes) > 1% indicates that a LEFT SHIFT is Present. International normalized rat io (INR) calculationOrdered By: Inderjit Gillespie on 09-01-2024 INR Coag (Bld) [Relative time] 1.8 {INR} [facility] Ketones Test strip Ql (U)Ord ered By: Inderjit Gillespie on 09-01-2024 Ketones Ql (U) Negative Negative [facility] MCV (mean corpuscular volume ) determinationOrdered By: Inderjit Gillespie on 09-01-2024 MCV (RBC) [Entitic vol] 78.0 fL Low 80-94 [facility] Mean corpuscular hemoglobin (MCH) determinationOrdered By: Inderjit Gillespie on 09-01-2024 MCH (RBC) [Entitic mass] 24.6 pg Low 27.0-32.0 [facility] Mean corpuscular hemoglobin concentration (MCHC) determinationOrdered By: Inderjit Gillespie on 09-01-2024 MCHC (RBC) [Mass/Vol] 31.5 g/dL Low 32-36 [facility] Mean platelet volume determi nationOrdered By: Inderjit Gillespie on 09-01-2024 Platelet mean volume (Bld) [Entitic vol] 9.4 fL 6.2-12.0 [facility] Microscopic analysis of urin e for red blood cells (RBC)Ordered By: Inderjit Gillespie on 09-01-2024 Microscopic analysis of urine for red blood cells (RBC) 0 SEEN /hpf 0-5 [facility] Monocyte percentageOrdered B y: Inderjit Gillespie on 09-01-2024 Monocytes/100 WBC (Bld) 5.7 % 0-10 [facility] Mucus LM Ql (Urine sed)Order ed By: Inderjit Gillespie on 09-01-2024 Mucus Ql (Urine sed) 0 SEEN /hpf [facility] Neutrophil percentageOrdered By: Inderjit Gillespie on 09-01-2024 Neutrophils/100 WBC (Bld) 87.5 % High 47-70 [facility] Nitrite Test strip Ql (U)Ord ered By: Inderjit Gillespie on 09-01-2024 Nitrite Ql (U) Negative Negative [facility] Nucleated red blood cell per centageOrdered By: Inderjit Gillespie on 09-01-2024 Nucleated RBC/100 WBC (Bld) [Ratio] 0 % 0-5 [facility] Platelet countOrdered By: Aries Gillespie on 09-01-2024 Platelets (Bld) [#/Vol] 258 10*3/uL 150-450 [facility] Potassium measurement (mass/ volume)Ordered By: Inderjit Gillespie on 09-01-2024 Potassium (Unsp spec) [Mass/Vol] 3.7 mmol/L 3.3-5.1 [facility] Protein Test strip Ql (U)Ord ered By: Inderjit Gillespie on 09-01-2024 Protein Ql (U) 15 mg/dl High Negative [facility] Prothrombin timeOrdered By: Inderjit Gillespie on 09-01-2024 PT Coag (PPP) [Time] 21.4 s High 11.7-14.9 [facility] RBC Auto (Bld) [#/Vol]Ordere d By: Inderjit Gillespie on 09-01-2024 RBC (Bld) [#/Vol] 4.72 10*6/uL 4.6-6.2 [facility] Serum creatinine measurement (mass/volume)Ordered By: Inderjit Gillespie on 09-01-2024 Creatinine [Mass/Vol] 0.77 mg/dL 0.70-1.20 [facility] Serum glucose measurement (m ass/volume)Ordered By: Inderjit Gillespie on 09-01-2024 Glucose [Mass/Vol] 112 mg/dL High 70-99 [facility] Serum or plasma calcium alvaro urement (mass/volume)Ordered By: Inderjit Gillespie on 09-01-2024 Calcium [Mass/Vol] 8.8 mg/dL 7.6-11.0 [facility] Serum or plasma urea nitroge n measurement (mass/volume)Ordered By: Inderjit Gillespie on 09-01-2024 Urea nitrogen [Mass/Vol] 17 mg/dL 4-19 [facility] Sodium levelOrdered By: Inderjit Gillespie on 09-01-2024 Sodium [Moles/Vol] 139 mmol/L 133-145 [facility] Squamous epithelial cells de tection in urine sediment by light microscopyOrdered By: Inderjit Gillespie on 09-01-2024 Epithelial cells.squamous LM Ql (Urine sed) 0 SEEN /hpf 0-5 [facility] Urine clarityOrdered By: Mario Gillespie on 09-01-2024 Clarity (U) Clear Clear [facility] Urine color determinationOrd ered By: Inderjit Gillespie on 09-01-2024 Color (U) Yellow Yellow [facility] Urine glucose detectionOrder ed By: Inderjit Gillespie on 09-01-2024 Glucose Ql (U) Normal mg/dl Normal [facility] Urine leukocyte esterase det ection by dipstickOrdered By: Inderjit Gillespie on 09-01-2024 Leukocyte esterase Test strip Ql (U) Negative Negative [facility] Urine pHOrdered By: Inderjit pack on 09-01-2024 pH (U) 8.0 [pH] 5.0 - 8.0 [facility] Urine sediment bacteria coun t by microscopy (number/high power field)Ordered By: Inderjit Gillespie on 09-01-2024 Bacteria LM.HPF (Urine sed) [#/Area] 0 /[HPF] None Seen [facility] Urine specific gravity measu rementOrdered By: Inderjit Gillespie on 09-01-2024 Specific gravity (U) [Rel density] 1.010 1.002-1.03 0 [facility] Urine urobilinogen measureme ntOrdered By: Inderjit Gillespie on 09-01-2024 Urobilinogen Ql (U) 4 mg/dl High Normal [facility] White blood cell (WBC) count Ordered By: Inderjit Gillespie on 09-01-2024 WBC (Bld) [#/Vol] 12.9 10*3/uL High 4.4-11.0 [facility] White blood cell countOrdere d By: Inderjit Gillespie on 09-01-2024 White blood cell count 0 SEEN /hpf 0-5 [facility] CNPNon 08-03-2024 CNPN Telephone (PHAIAE) ROBY FLORES ([id number]) 1935 M Date Time Provider Department 08/03/24 CORETTA JALLOH During your visit today, we recorded the following information about you: Coretta Jalloh RPh 08/03/2024 10:52 AM Signed [facility] Pharmacy Anticoagulation Clinic Anticoagulation Episode Summary Anticoagulation Care Providers Provider Role Specialty Phone number Stas Mora MD Referring Family Medicine [phone] Roby Flores is a 88 year old year old male patient being evaluated today for a Lab INR. Patient is currently on the following 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(s) Warfarin. Labs Lab Results Component Value Date INR 2.5 (H) 08/03/2024 INR 2.1 (H) 07/06/2024 INR 2.5 (H) 06/29/2024 Lab Results Component Value Date HB 11.8 (L) 05/25/2024 HB 10.0 (L) 06/04/2023 HB 9.8 (L) 06/03/2023 Lab Results Component Value Date HCT 38.7 (L) 05/25/2024 HCT 34.9 (L) 06/04/2023 HCT 33.7 (L) 06/03/2023 Lab Results Component Value Date PLT 257 05/25/2024 PLT 297 06/04/2023 PLT 284 06/03/2023 Lab Results Component Value Date CREAT 0.73 05/25/2024 CREAT 0.81 06/03/2023 CREAT 0.89 08/15/2022 No components found for: TBILI3 Lab Results Component Value Date ALT 17 05/25/2024 ALT 13 06/03/2023 ALT 14 08/15/2022 Lab Results Component Value Date AST 22 05/25/2024 AST 21 06/03/2023 AST 23 08/15/2022 Estimated Creatinine Clearance: 73.3 mL/min (based on SCr of 0.73 mg/dL). ALLERGIES No Known Allergies 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: [facility] current us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 Paroxysmal atrial fibrillation (hcc) Anticoagulation Episode Summary Current INR goal: 2.0-3.0 Assessment: INR result of 2.5 is therapeutic Plan: Current Warfarin Dosing As of 08/03/2024 Full warfarin instructions: 1.5 mg every Thu, Sat; 2.5 mg all other days Left voice message For Maria Guadalupe. Advised patient to continue current weekly dose as noted above Next lab INR check scheduled on 08/31/2024 Patient advised to call the PAC with any medication changes, bleeding/bruising concerns, recent changes in vitamin k consumption, if any procedures are coming up, if they have been ill or in the hospital, and if they have missed any doses of warfarin. Coretta Jalloh [facility] Clinical Pharmacist, Pharmacy Anticoagulation Clinic Pharmacy Anticoagulation Clinic Pager: [phone]. Adrian (AcademizeElana Berry 08/03/2024 11:01 AM Signed PATIENT CALL Patient called call center regarding missed call. Patient's caregiver called re: returning a call. Read the following to caller: Assessment: INR result of 2.5 is therapeutic Plan: Current Warfarin Dosing As of 08/03/2024 Full warfarin instructions: 1.5 mg every Thu, Sat; 2.5 mg all other days Left voice message For Maria Guadalupe. Advised patient to continue current weekly dose as noted above Next lab INR check scheduled on 08/31/2024 Caregiver verbalized understanding. Will route to [facility] as FYI. Elana Campbell (Academize) Coretta Jalloh [facility] 08/03/2024 11:20 AM Signed I have reviewed the below recommendations and agree with plan. 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 Diagnosis:[facility] current us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 [Z79.01] Other Visit Diagnosis:Paroxysmal atrial fibrillation (HCC) [I48.0] Prescriptions as of 08/03/2024 - memantine (NAMENDA) 10 mg tablet Take 1 tablet by mouth two times a day. - atorvastatin (LIPITOR) 40 mg tablet Take 1 tablet by mouth daily at bedtime. - warfarin (COUMADIN) 2.5 mg tablet Take as directed by anticoagulation clinic - warfarin (COUMADIN) 3 mg tablet Take as directed by anticoagulation clinic - lisinopril (ZESTRIL) 10 mg tablet Take 1 tablet by mouth once daily. - warfarin (COUMADIN) 1 mg tablet Take 1 tablet by mouth daily as directed. 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 [facility] current us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 [Z79.01]09/22/2016 Paroxysmal atrial fibrillation (HCC) [I48.0] 09/22/2016 Hyperlipidemia [E78.5] 08/26/2022 Encounter Status:Closed by CORETTA JALLOH on 08/03/24 Normal [facility] PT panel Coag (PPP)on 2024 INR Coag (PPP) [Relative time] 2.5 {INR} High 0.9-1.3 [facility] Comment on above: Order Comment: Speci men Type: BLOOD SPECIMENOrdering Facility: [facility] Address: [address] [place] [address] Result Comment: Mary min K Antagonist (VKA) Therapeutic Range: INR 2 to 3 (Target INR of 2.5) Note: For patients treated with VKA drugs, such as warfarin, the [place] [employer] 2012 Guideline recommends [...] Chest 2012, 141:7S-47S Avel CARDONA et al. JAC 2017, 70: 252-289 Performed By: #### 3 4528-0 ####[facility] WALKERTOWNCLIA [id number] [address] [place] PT Coag (PPP) [Time] 24.3 s High <13.1 [facility] Comment on above: Order Comment: Speci men Type: BLOOD SPECIMENOrdering Facility: [facility] Address: [facility][note 3] [place] [address] Performed By: #### 3 4528-0 ####[facility] LINWNCLIA [id number] [address] OF [facility] CNOVon 07-28-2024 CNOV Office Visit (VISHWS ) ROBY FLORES ([id number]) 1935 M Date Time Provider Department 07/28/24 11:20 AM STAS MORA During your visit today, we recorded the following information about you: Pulse Respiration Blood pressure Weight 56/minute 16/minute 136/78 74.1 kg Stas Mora MD 07/28/2024 11:21 AM Signed Chief Complaint Patient presents with: Lump: Elbow HPI Robykarna Flores is a 88 year old male who presents here today for lump. Here today with his for an acute visit. Pt c/o lump on right elbow that's been present for about 1 month. states that pt just told her about it a few days ago. Denies hitting the elbow on anything. Denies any pain in the area, but can just feel the lump. No longer taking Aricept due to bradycardia. Was switched to Namenda by Geriatrics, but pt is not taking due to cost of medication. Past medical history, appointments, medications, allergies reviewed. Previous Medical History PAST MEDICAL HISTORY Diagnosis Date Coronary atherosclerosis of unspecified type of vessel, pauma or graft Coronary artery disease Other and unspecified hyperlipidemia Unspecified essential hypertension Essential hypertension Previous Surgical History PAST SURGICAL HISTORY Procedure Laterality Date APPENDECTOMY PERC TRANSL COR ANGIO 2006 last time Percutaneous Transluminal Coronary Angio Status 3 procedures Family History FAMILY HISTORY Problem Relation Age of Onset Arthritis Mother Alcohol/Drug Father Stroke Father Cancer Brother 50 Stomach cancer Patient Allergies ALLERGIES No Known Allergies Current Medications Current Outpatient Medications on File Prior to Visit Medication Sig memantine (NAMENDA) 10 mg tablet Take 1 tablet by mouth two times a day. atorvastatin (LIPITOR) 40 mg tablet Take 1 tablet by mouth daily at bedtime. warfarin (COUMADIN) 2.5 mg tablet Take as directed by anticoagulation clinic warfarin (COUMADIN) 3 mg tablet Take as directed by anticoagulation clinic lisinopril (ZESTRIL) 10 mg tablet Take 1 tablet by mouth once daily. donepezil (ARICEPT) 5 mg tablet Take 1 tablet by mouth daily at bedtime. warfarin (COUMADIN) 1 mg tablet Take 1 tablet by mouth daily as directed. No current facility-administered medications on file prior to visit. Social History Social History Tobacco Use Smoking status: Former Smokeless tobacco: Never Tobacco comments: 30 yaers ago Substance Use Topics Alcohol use: No Drug use: No EXAM: BP 136/78 Pulse (!) 56 Resp 16 Wt 74.1 kg (163 lb 5.8 oz) BMI 22.40 kg/m? General Appearance: Well appearing, alert, in no acute distress, well-hydrated, well nourished. Using a cane to ambulate, slow to walk with shuffling. Lungs: Lungs clear to auscultation. No wheezing, rhonchi, rales.. Heart: RRR without murmur, gallop, or rubs. No ectopy. Extremities: R elbow examined. Noted bursa sac on right elbow seen. No pain to palpate. Health Maintenance List Covid-19 Vaccine( season) due on 06/01/2024 Depression Screening due on 2024 Anxiety Screening due on 2024 RSV Vaccine(1 - 1-dose 75+ series) due on 11/25/2024 LDL Cholesterol due on 05/25/2025 Diabetes Screening due on 05/26/2027 DTaP,Tdap,Td Vaccine(2 - Td or Tdap) due on 02/27/2031 Influenza Vaccine Completed Advance Directive Discussion Completed Shingrix Vaccine Completed Pneumococcal Vaccine: 50+ Completed Data reviewed None ASSESSMENT/PLAN: 1. Bursitis of right elbow, unspecified bursa - ICD9: 726.33, ICD10: M70.31 - Advised pt to use ice and wrap elbow to help reduce lump. - Not painful, but if bothersome can refer to Ortho - Did advise pt and that generally not preferred to have drained due to re-occurrence. Follow up prn. I agree with the Chief Complaint, ROS, and Past Histories independently gathered by the clinical patient support tech and the remaining scribed note accurately describes my personal service to the patient. Medical Decision Making: Problems: Low: Acute, uncomplicated illness or injury Risk: Low: Low risk from testing/treatment Medical Decision Making Level: 3 - Low Stas Mora MD The documentation for this note was completed by Rosie Cruz MA acting as scribe for Stas Mora MD. July 28, 2024 11:16 AM. Rosie Cruz MA Allergies As of Date: 07/28/2024 (No Known Allergies) Date Reviewed: 07/28/2024 Reviewed by: Rosie Cruz MA - Fully Assessed Reason for Visit: Lump [31942] Cmt: Elbow Primary Visit Diagnosis:Bursitis of right elbow, unspecified bursa [M70.31] Prescriptions as of 07/28/2024 - memantine (NAMENDA) 10 mg tablet Take 1 tablet by mouth two times a day. - atorvastatin (LIPITOR) 40 mg tablet Take 1 tablet by mouth daily at bedtime. - warfarin (COUMADIN) 2.5 mg tablet Take as directed (more content not included)... Normal [facility] Gene 07-12-2024 SHEMARN Telephone (GERIWR) ROBY FLORES ([id number]) 1935 M Date Time Provider Department 07/12/24 LUCIANA CISNEROS During your visit today, we recorded the following information about you: Marian Corona RN 07/12/2024 10:28 AM Signed Significant other calls to report that patient is no longer going to take the memantine 10 mg twice daily d/t cost ($55/mo). Patient is wanting to know if he could stop the memantine and starting the donepezil again at 10 mg instead of 5 mg. Verified that patient is currently only taking memantine 10 mg twice daily and no Aricept at all. Please review and advise, EMILY Wolf Chitra, MD 07/14/2024 4:11 PM Signed His heart rate was only 46 so he cannot be on Namenda unless his heart rate is atleast 56 or above. Regards, Marta Woodward MD, MA 07/15/2024 8:59 AM Signed Spoke with Maria Guadalupe, she stated that due to cost they would like to stop the Namenda and start back on Aricept 10 mg daily. Please advise. MARIA E Coleman Chitra, MD 07/15/2024 1:41 PM Signed Sorry I meant he cannot be on the aricept due to the heart rate, if his current heart rate Is more than 60 then he can take the aricept. Also would like to know if he is feeling any improvement with the medication with cognition . Please call and let them know that they can stop the medication namenda if too expensive. Apologies for the confusion. The message was a typo Regards, Ursula Nino MD, MA 07/15/2024 2:31 PM Signed Significant other (SO) notified. SO states she's noticed a little improvement with cognition. Patient still has hallucinations and still doesn't remember well. SO states when patient was taking Aricept prior to start of Namenda, did not notice a difference with patient but the Aricept dose was only 5 mg. SO states it could be d/t the low dose. Repeated to SO patient CAN take Aricept if HR is 60+. SO verbalized understanding of instructions. SO questions if HR stays below 60 is there anything else that patient can take? Please advise. MARIA E Dodd Chitra, MD 07/15/2024 5:29 PM Signed Nothing other than namenda if aricept is contraindicated Luciana Ortiz MD, Elizabeth, MA 07/18/2024 9:37 AM Signed notified and aware nothing else can be sent in place namenda. Wendy Faulkner MA Allergies As of Date: 07/12/2024 (No Known Allergies) Date Reviewed: 06/01/2024 Reviewed by: Vicki Patricia LPN - Fully Assessed Reason for Visit: Medication Problem [65] Prescriptions as of 07/18/2024 - memantine (NAMENDA) 10 mg tablet Take 1 tablet by mouth two times a day. - atorvastatin (LIPITOR) 40 mg tablet Take 1 tablet by mouth daily at bedtime. - warfarin (COUMADIN) 2.5 mg tablet Take as directed by anticoagulation clinic - warfarin (COUMADIN) 3 mg tablet Take as directed by anticoagulation clinic - lisinopril (ZESTRIL) 10 mg tablet Take 1 tablet by mouth once daily. - donepezil (ARICEPT) 5 mg tablet Take 1 tablet by mouth daily at bedtime. - warfarin (COUMADIN) 1 mg tablet Take 1 tablet by mouth daily as directed. 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 [facility] current us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 [Z79.01]09/22/2016 Paroxysmal atrial fibrillation (HCC) [I48.0] 09/22/2016 Hyperlipidemia [E78.5] 08/26/2022 Encounter Status:Closed by WENDY FAULKNER on 07/18/24 [facility] ([id number]) 1935 M Date Time Provider Department 07/06/24 CORETTA JALLOH During your visit today, we recorded the following information about you: Coretta Jalloh [facility] 07/06/2024 10:16 AM Signed [facility] Ambulatory Pharmacy Anticoagulation Clinic Anticoagulation Episode Summary Anticoagulation Care Providers Provider Role Specialty Phone number Stas Mora MD Referring Family Medicine [phone] Roby Flores is a 88 year old year old male patient being evaluated today for a Telemanagement visit. Patient is currently on the following 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(s) Warfarin. Labs PT INR (no units) Date Value 05/19/2022 1.7 05/15/2021 2.3 04/17/2021 1.9 INR (no units) Date Value 07/06/2024 2.1 06/29/2024 2.5 05/25/2024 2.9 Hemoglobin (g/dL) Date Value 05/25/2024 11.8 Hematocrit (%) Date Value 05/25/2024 38.7 Platelet Count (k/uL) Date Value 05/25/2024 257 Creatinine (mg/dL) Date Value 05/25/2024 0.73 06/03/2023 0.81 08/15/2022 0.89 03/13/2021 0.80 08/28/2020 0.83 Bilirubin, Total (mg/dL) Date Value 05/25/2024 0.8 03/13/2021 0.5 ALT (U/L) Date Value 05/25/2024 17 03/13/2021 24 AST (U/L) Date Value 05/25/2024 22 03/13/2021 24 Estimated Creatinine Clearance: 73 mL/min (based on SCr of 0.73 mg/dL). 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 Paroxysmal atrial fibrillation (hcc) Anticoagulation Episode Summary Current INR goal: 2.0-3.0 Assessment: INR result of 2.1 is therapeutic Plan: Current Warfarin Dosing As of 07/06/2024 Full warfarin instructions: 1.5 mg every Thu, Sat; 2.5 mg all other days Called and spoke to patient/caregiver Advised patient to continue current weekly dose as noted above Next lab INR check scheduled on 08/03/2024 Patient's caregiver, Maria Guadalupe, verbalizes understanding of the plan. Patient denies need for refills. Patient advised to call the PAC with any medication changes, bleeding/bruising concerns, recent changes in vitamin k consumption, if any procedures are coming up, if they have been ill or in the hospital, and if they have missed any doses of warfarin. Coretta Jalloh [facility] Clinical Pharmacist, Pharmacy Anticoagulation Clinic Pharmacy Anticoagulation Clinic Pager: [phone]. Allergies As of Date: 07/06/2024 (No Known Allergies) Date Reviewed: 06/01/2024 Reviewed by: Vicki Patricia LPN - Fully Assessed Reason for Visit: Anticoagulation Telephone Fu [148] Cmt: Lab INR result Primary Visit Diagnosis:[facility] current us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 [Z79.01] Other Visit Diagnosis:Paroxysmal atrial fibrillation (HCC) [I48.0] Prescriptions as of 07/06/2024 - memantine (NAMENDA) 10 mg tablet Take 1 tablet by mouth two times a day. - atorvastatin (LIPITOR) 40 mg tablet Take 1 tablet by mouth daily at bedtime. - warfarin (COUMADIN) 2.5 mg tablet Take as directed by anticoagulation clinic - warfarin (COUMADIN) 3 mg tablet Take as directed by anticoagulation clinic - lisinopril (ZESTRIL) 10 mg tablet Take 1 tablet by mouth once daily. - donepezil (ARICEPT) 5 mg tablet Take 1 tablet by mouth daily at bedtime. - warfarin (COUMADIN) 1 mg tablet Take 1 tablet by mouth daily as directed. 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 [facility] current us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 [Z79.01]09/22/2016 Paroxysmal atrial fibrillation (HCC) [I48.0] 09/22/2016 Hyperlipidemia [E78.5] 08/26/2022 Encounter Status:Closed by CORETTA JALLOH on 07/06/24 Normal [facility] PT panel Coag (PPP)on 2024 INR Coag (PPP) [Relative time] 2.1 {INR} High 0.9-1.3 [facility] Comment on above: Order Comment: Speci ghulam Type: BLOOD SPECIMENOrdering Facility: [facility] Address: [address] [place] [address] Result Comment: Mary min K Antagonist (VKA) Therapeutic Range: INR 2 to 3 (Target INR of 2.5) Note: For patients treated with VKA drugs, such as warfarin, the [place] [employer] 2012 Guideline recommends [...] Chest 2012, 141:7S-47S Avel RA, et al. JACC 2017, 70: 252-289 Performed By: #### 3 4528-0 ####[facility] FAULKNER [id number] [place] [address] [place] PT Coag (PPP) [Time] 21.0 s High <13.1 [facility] Comment on above: Order Comment: Speci men Type: BLOOD SPECIMENOrdering Facility: [facility] Address: [address] [place] [address] Performed By: #### 3 4528-0 ####[facility] FAULKNER [id number] [place] [id number] [facility] CNPNon 06-29-2024 CNPN Telephone (PHAMTE) SANDRAROBY E ([id number]) 1935 M Date Time Provider Department 06/29/24 CORETTA JALLOH During your visit today, we recorded the following information about you: Coretta Jalloh RPh 06/29/2024 9:54 AM Signed [facility] Ambulatory Pharmacy Anticoagulation Clinic Anticoagulation Episode Summary Anticoagulation Care Providers Provider Role Specialty Phone number Stas Mora MD Referring Family Medicine [phone] Roby Radha Flores is a 88 year old year old male patient being evaluated today for a Lab INR. Patient is currently on the following 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(s) Warfarin. Labs PT INR (no units) Date Value 05/19/2022 1.7 05/15/2021 2.3 04/17/2021 1.9 INR (no units) Date Value 06/29/2024 2.5 05/25/2024 2.9 04/27/2024 2.6 Hemoglobin (g/dL) Date Value 05/25/2024 11.8 Hematocrit (%) Date Value 05/25/2024 38.7 Platelet Count (k/uL) Date Value 05/25/2024 257 Creatinine (mg/dL) Date Value 05/25/2024 0.73 06/03/2023 0.81 08/15/2022 0.89 03/13/2021 0.80 08/28/2020 0.83 Bilirubin, Total (mg/dL) Date Value 05/25/2024 0.8 03/13/2021 0.5 ALT (U/L) Date Value 05/25/2024 17 03/13/2021 24 AST (U/L) Date Value 05/25/2024 22 03/13/2021 24 Estimated Creatinine Clearance: 73 mL/min (based on SCr of 0.73 mg/dL). 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 Paroxysmal atrial fibrillation (hcc) Anticoagulation Episode Summary Current INR goal: 2.0-3.0 Assessment: INR result of 2.5 is therapeutic Plan: Current Warfarin Dosing As of 06/29/2024 Full warfarin instructions: 1.5 mg every Thu, Sat; 2.5 mg all other days Sent [facility] Therapy Records message Advised patient to continue current weekly dose as noted above Next home INR check scheduled on 07/06/2024 Patient advised to call the PAC with any medication changes, bleeding/bruising concerns, recent changes in vitamin k consumption, if any procedures are coming up, if they have been ill or in the hospital, and if they have missed any doses of warfarin. Coretta Jallho Formerly [facility] Clinical Pharmacist, Pharmacy Anticoagulation Clinic Pharmacy Anticoagulation Clinic Pager: [phone]. Allergies As of Date: 06/29/2024 (No Known Allergies) Date Reviewed: 06/01/2024 Reviewed by: Vicki Patricia LPN - Fully Assessed Reason for Visit: Anticoagulation Telephone Fu [148] Cmt: Lab INR result Primary Visit Diagnosis: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 [Z79.01] Other Visit Diagnosis:Paroxysmal atrial fibrillation (HCC) [I48.0] Prescriptions as of 06/29/2024 - memantine (NAMENDA) 10 mg tablet Take 1 tablet by mouth two times a day. - atorvastatin (LIPITOR) 40 mg tablet Take 1 tablet by mouth daily at bedtime. - warfarin (COUMADIN) 2.5 mg tablet Take as directed by anticoagulation clinic - warfarin (COUMADIN) 3 mg tablet Take as directed by anticoagulation clinic - lisinopril (ZESTRIL) 10 mg tablet Take 1 tablet by mouth once daily. - donepezil (ARICEPT) 5 mg tablet Take 1 tablet by mouth daily at bedtime. - warfarin (COUMADIN) 1 mg tablet Take 1 tablet by mouth daily as directed. 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 [Z79.01]09/22/2016 Paroxysmal atrial fibrillation (HCC) [I48.0] 09/22/2016 Hyperlipidemia [E78.5]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 8-15 [facility] Comment on above: Order Comment: Speci men Type: BLOOD SPECIMENOrdering Facility: [facility] Address: [address] [place] [address] Performed By: #### 2 4331-1 ####[facility] LABORATORYCLIA [id number] [place], [place] [address] [place] [address] STATES OF [facility] [id number] [place] [address] [place]#### 13174-9 ####[facility] [id number] [place] [address] [place] AST [Catalytic activity/Vol] 22 U/L Normal 14-40 [facility] Comment on above: Order Comment: Speci men Type: BLOOD SPECIMENOrdering Facility: [facility] Address: [address] [place] [address] Performed By: #### 2 4331-1 ####[facility] LABORATORYCLIA [id number] [place], [place] [address] [place] [address] BERNICE MILLTOWNCLIA [id number] [place] [address] [place]#### 83978-6 ####[facility] MILLTOWNCLIA [id number] [place] [address] [place] Bilirubin [Mass/Vol] 0.8 mg/dL Normal 0.2-1.3 [facility] Comment on above: Order Comment: Speci men Type: BLOOD SPECIMENOrdering Facility: [facility] Address: [address] [place] [address] Performed By: #### 2 4331-1 ####[facility] LABORATORYCLIA [id number] [address] BERNICE MILLTOWNCLIA [id number] [place] [address] [place]#### 52346-3 ####[facility] MILLTOWNCLIA [id number] [place] [address] [place] Calcium [Mass/Vol] 8.8 mg/dL Normal 8.5-10.2 [facility] Comment on above: Order Comment: Speci men Type: BLOOD SPECIMENOrdering Facility: [facility] Address: [address] [place] [address] Performed By: #### 2 4331-1 ####[facility] LABORATORYCLIA [id number] [address] BERNICE MILLTOWNCLIA [id number] [place] [address] [place]#### 42294-2 ####[facility] MILLTOWNCLIA [id number] [place] [address] [place] Chloride [Moles/Vol] 102 mmol/L Normal 98-107 [facility] Comment on above: Order Comment: Speci men Type: BLOOD SPECIMENOrdering Facility: [facility] Address: [address] [place] [address] Performed By: #### 2 4331-1 ####[facility] LABORATORYCLIA [id number] [place] [address] [place] [facility] BERNICEVERMONT PSYCHIATRIC CARE HOSPITALWCOLIA [id number] [place] [address] [place]#### 01584-1 ####[facility] MILLWCOLIA [id number] [place] [address] [place] CO2 [Moles/Vol] 24 mmol/L Normal 22-30 [facility] Comment on above: Order Comment: Speci men Type: BLOOD SPECIMENOrdering Facility: [facility] Address: [address] [place] [address] Performed By: #### 2 4331-1 ####[facility] LABORATORYCLIA [id number] [address] STATES [facility] [id number] [place] [address] [place]#### 72129-1 ####[facility] CENTERLIA [id number] [place] [address] [place] Creatinine [Mass/Vol] 0.73 mg/dL Normal 0.73-1.22 [facility] Comment on above: Order Comment: Speci men Type: BLOOD SPECIMENOrdering Facility: [facility] Address: [address] [place] [address] Performed By: #### 2 4331-1 ####[facility]ORATORYCLIA [id number] [place] [address] [place] [facility] BERNICESAMARITAN HOSPITALA [id number] [address]#### 12315-1 ####[facility] [id number] [address] Creatinine and Glomerular filtration rate.predicted panel (S/P/Bld) 88 mL/min/1.73m??? Normal >=60 [facility] Comment on above: Order Comment: Stone parmar Type: BLOOD SPECIMENOrdering Facility: [facility] Address: [address] [place] [address] Result Comment: Ruby mated Glomerular Filtration Rate (eGFR) is calculated using the 2020 CKD-EPI creatinine equation. This equation utilizes serum creatinine, sex, and age as parameters. The creatinine assay has traceable calibration to isotope dilution-mass spectrometry. Refer to KDIGO guidelines for clinical interpretation. In patients with unstable renal function, e.g. those with acute kidney injury, the eGFR may not accurately reflect actual GFR. Performed By: #### 2 4331-1 ####[facility] LABORATORYCLIA [id number] [address] [id number] [address]#### 92879-2 ####[facility] [id number] [place] [address] [place] Glucose [Mass/Vol] 98 mg/dL Normal 74-99 [facility] Comment on above: Order Comment: Stone parmar Type: BLOOD SPECIMENOrdering Facility: [facility] Address: [address] [place] [address] Result Comment: The [place] Diabetes Association (ADA) provides guidance for cutoff values for fasting glucose and random glucose. The ADA defines fasting as no caloric intake for at least 8 hours. Fasting plasma glucose results between 100 to 125 mg/dL indicate increased risk for diabetes (prediabetes). Fasting plasma glucose results greater than or equal to 126 mg/dL meet the criteria for diagnosis of diabetes. In the absence of unequivocal hyperglycemia, results should be confirmed by repeat testing. In a patient with classic symptoms of hyperglycemia or hyperglycemic crisis, random plasma glucose results greater than or equal to 200 mg/dL meet the criteria for diagnosis of diabetes. Reference: Standards of Medical Care in Diabetes 2016, [place] Diabetes Association. Diabetes Care. 2016.39(Suppl 1). Performed By: #### 2 4331-1 ####[facility] LABORATORYCLIA [id number] [address] [id number] [address] OF [place]#### 95977-1 ####[facility] [id number] [address] [place] Potassium [Moles/Vol] 4.1 mmol/L Normal 3.7-5.1 [facility] Comment on above: Order Comment: Speci men Type: BLOOD SPECIMENOrdering Facility: [facility] Address: [address] [place] [address] Performed By: #### 2 4331-1 ####[facility] LABORATORYCLIA [id number] [address] [id number] [address] OF [place]#### 52757-0 ####[facility] CENTERLIA [id number] [place] [address] [place] Protein [Mass/Vol] 6.8 g/dL Normal 6.3-8.0 [facility] Comment on above: Order Comment: Speci men Type: BLOOD SPECIMENOrdering Facility: [facility] Address: [address] [place] [address] Performed By: #### 2 4331-1 ####[facility] LABORATORYCLIA [id number] [address] [id number] [place] [address] [place]#### 23723-0 ####[facility] [id number] [place] [address] [place] Sodium [Moles/Vol] 137 mmol/L Normal 136-144 [facility] Comment on above: Order Comment: Speci men Type: BLOOD SPECIMENOrdering Facility: [facility] Address: [address] [place] [address] Performed By: #### 2 4331-1 ####[facility] LABORATORYCLIA [id number] [address] STATES OF [facility] [id number] [place] [address] [place]#### 42830-9 ####[facility] [id number] [place] [address] [place] Urea nitrogen [Mass/Vol] 14 mg/dL Normal 9-24 [facility] Comment on above: Order Comment: Speci men Type: BLOOD SPECIMENOrdering Facility: [facility] Address: [address] [place] [address] Performed By: #### 2 4331-1 ####[facility] LABORATORYCLIA [id number] [address] STATES OF [facility] [id number] [place] [address] [place]#### 59634-0 ####[facility] [id number] [place] [address] [place] Lipid 1996 panelon 5 Cholesterol [Mass/Vol] 107 mg/dL Normal <200 [facility] Comment on above: Order Comment: Speci men Type: BLOOD SPECIMENOrdering Facility: [facility] Address: [address] [place] [address] Result Comment: <200 mg/dL, Desirable 200-239 mg/dL, Borderline high >239 mg/dL, High Performed By: #### 2 4331-1 ####[facility] LABORATORYCLIA [id number] [address] STATES OF [facility] DAYTONLIA [id number] [place] [address] [place]#### 08570-1 ####[facility] CENTERLIA [id number] [place] [address] [place] Cholesterol in HDL [Mass/Vol] 43 mg/dL Normal >39 [facility] Comment on above: Order Comment: Speci men Type: BLOOD SPECIMENOrdering Facility: [facility] Address: [address] [place] [address] Result Comment: 40-5 9 mg/dL, Acceptable >59 mg/dL, High: Negative risk factor for coronary heart disease <40 mg/dL, Low: Positive risk factor for coronary heart disease Performed By: #### 2 4331-1 ####[facility] LABORATORYCLIA [id number] [address] STATES OF [facility]TONLIA [id number] [place] [address] [place]#### 89914-7 ####[facility] P[facility]LLASWNCLIA [id number] [place] [address] [place] Cholesterol in LDL [Mass/Vol] 51 mg/dL Normal <100 [facility] Comment on above: Order Comment: Speci men Type: BLOOD SPECIMENOrdering Facility: [facility] Address: [address] [place] [id number] Result Comment: <100 mg/dL, Optimal 100-129 mg/dL, Near optimal/above optimal 130-159 mg/dL, Borderline high 160-189 mg/dL, High >189 mg/dL, Very high Secondary prevention optimal LDL Cholesterol levels are recommended to be < 70 mg/dL Performed By: #### 2 4331-1 ####[facility] LABORATORYCLIA [id number] [address] [id number] [place] [address] [facility] [place]#### 31788-1 ####[facility] CENTERLIA [id number] [place] [address] [facility] [place] Cholesterol in LDL/Cholesterol in HDL [Mass ratio] 1.19 {ratio} Normal <2.54 [facility] Comment on above: Order Comment: Speci men Type: BLOOD SPECIMENOrdering Facility: [facility] Address: [address] [place] [address] Result Comment: Refe rence: 1. National Cholesterol Education Program ATP III Guideline At-A-Glance Quick Desk Reference: National Heart, Lung, and Blood [place]. National Institutes of Health. 2001: NIH Publication No. 01-3305. 2. An International Atherosclerosis Society position paper: global recommendations for the management of dyslipidemia: executive summary, Atherosclerosis. 2014: 232(2):410-413. Performed By: #### 2 4331-1 ####[facility] LABORATORYCLIA [id number] [address] [id number] [address]#### 80408-9 ####[facility] CENTERLIA [id number] [place] [address] [place] Cholesterol in VLDL [Mass/Vol] 13 mg/dL Normal <30 [facility] Comment on above: Order Comment: Speci men Type: BLOOD SPECIMENOrdering Facility: [facility] Address: [address] [place] [address] Performed By: #### 2 4331-1 ####[facility] LABORATORYCLIA [id number] [place] [address] [place] [facility] [id number] [place] [address] [place]#### 07633-1 ####[facility] [id number] [place] [address] [place] Cholesterol non HDL [Mass/Vol] 64 mg/dL Normal <130 [facility] Comment on above: Order Comment: Speci men Type: BLOOD SPECIMENOrdering Facility: [facility] Address: [address] [place] [address] Result Comment: <130 mg/dL, Optimal 130-159 mg/dL, Near optimal/above optimal 160-189 mg/dL, Borderline high 190-219 mg/dL, High >219 mg/dL, Very high Secondary prevention optimal non HDL Cholesterol levels are recommended to be <100 mg/dL Performed By: #### 2 4331-1 ####[facility] LABORATORYCLIA [id number] [address] STATES OF [facility] [id number] [place] [address] [place]#### 78440-9 ####[facility] [id number] [place] [address] [place] Cholesterol.total/Cho lesterol in HDL [Mass ratio] 2.49 {ratio} Normal <5.10 [facility] Comment on above: Order Comment: Speci men Type: BLOOD SPECIMENOrdering Facility: [facility] Address: [address] [place] [address] Performed By: #### 2 4331-1 ####[facility] LABORATORYCLIA [id number] [address] STATES OF [facility] [id number] [place] [address] [place]#### 76007-5 ####[facility] CENTERLIA [id number] [place] [address] [place] FASTING TIME 12 hrs Normal [facility] Comment on above: Order Comment: Speci men Type: BLOOD SPECIMENOrdering Facility: [facility] Address: [address] [place] [address] Performed By: #### 2 4331-1 ####[facility]ORATORYCLIA [id number] [address] [id number] [place] [address] [place]#### 56085-0 ####[facility] [id number] [place] [address] [place] Triglyceride [Mass/Vol] 66 mg/dL Normal <150 [facility] Comment on above: Order Comment: Speci men Type: BLOOD SPECIMENOrdering Facility: [facility] Address: [address] [place] [address] Result Comment: <150 mg/dL, Normal 150-199 mg/dL, Borderline high 200-499 mg/dL, High >499 mg/dL, Very high Performed By: #### 2 4331-1 ####[facility]ORATORYCLIA [id number] [address] [id number] [place] [address] [place]#### 11100-0 ####[facility] CENTERLIA [id number] [place] [address] [place] PT panel Coag (PPP)on 2024 INR Coag (PPP) [Relative time] 2.9 {INR} High 0.9-1.3 [facility] Comment on above: Order Comment: Speci men Type: BLOOD SPECIMENOrdering Facility: [facility] Address: [address] [place] [address] Result Comment: Mary min K Antagonist (VKA) Therapeutic Range: INR 2 to 3 (Target INR of 2.5) Note: For patients treated with VKA drugs, such as warfarin, the [place] College [employer] Chest [employer]icians 2012 Guideline recommends [...] Chest 2012, 141:7S-47S Avel CARDONA et al. [facility] 2017, 70: 252-289 Performed By: #### 3 4528-0 ####[facility] [id number] [place] [address] [place] PT Coag (PPP) [Time] 28.7 s High <13.1 [facility] Comment on above: Order Comment: Speci men Type: BLOOD SPECIMENOrdering Facility: [facility] Address: [address] [place] [address] Performed By: #### 3 4528-0 ####[facility] [id number] [place] [address] [place] MR Brain WO contraston 05-23 * * *Final Report* * * DATE OF EXAM: May 23 2024 3:14PM [facility] 3015 - MRI BRAIN W QUANT WO IVCON / PROCEDURE REASON: Cognitive impairment, mild, so stated * * * * Physician Interpretation * * * * EXAMINATION: MRI BRAIN W QUANT WO IVCON, MRI 3D BRAIN QUANT CLINICAL HISTORY: Cognitive impairment, mild, so stated TECHNIQUE: Axial KIN FLAIR, KIN T2, diffusion and susceptibility weighted imaging without contrast, using the ADNI dementia protocol and 3-D post-processing using the Neuro[employer] software at an independent workstation with concurrent physician supervision and images were created, reviewed and archived. MQ: [email or web address] COMPARISON: None RESULT: QUALITATIVE: Acute Intracranial Process: None. Chronic Intracranial Process: Extensive, confluent increased T2 and FLAIR signal is present in the supratentorial white matter which is nonspecific but likely represents extensive chronic microvascular ischemia. Number of chronic lacunar infarcts: Greater than 2 Location of chronic lacunar infarcts: Multiple remote lacunar infarcts in the bilateral centrum semiovale/judd radiata, along with the central joey. Age related white matter changes (ARWMC) rating: White matter lesions: 3 Basal ganglia lesions: 0 Prior intracranial hemorrhage: Parenchymal microhemorrhages: 0 Other (siderosis/macrohemorrhages (>10mm): Not Applicable Amyloid Related Imaging Abnormalities: ARIA-E: N/A ARIA-H Microhemorrhage: N/A ARIA-H Siderosis: N/A Qualitative brain and hippocampal volume loss for age: Cortex: Moderate and Symmetric White Matter: Severe and Symmetric Hippocampi: Severe and Symmetric Ventricles: Commensurate with volume loss. Brain Parenchymal Signal and Morphology: The brain parenchyma is otherwise within normal limits of signal and morphology. There is no evidence of an intracranial mass or extraaxial fluid collection. Other Significant Findings: Mild mucosal thickening in the bilateral ethmoid air cells, severe mucosal thickening in the right sphenoid sinus, and complete opacification of the left maxillary sinus. QUANTITATIVE: Exam Quality: Good for volumetric analysis. Segmentation: Negligible mismapping by visual inspection. Quantitative Data: Total Hippocampal Volume: Percentile for Age: 15 Asymmetry Index: 5.27 Inferior Lateral Vent Volume: Percentile for age: 99 Asymmetry Index: -7.83 Superior Lateral Vent Volume: Percentile for age: 99 Asymmetry Index: 12.7 Temporal Lobe Cortex Volume: Temporal Lobe Percentile for Age: 11 Temporal Lobe Asymmetry Index: 64 Frontal Lobe Cortex Volume: Frontal Lobe Percentile for Age: 29 Frontal Lobe Asymmetry Index: 20 Parietal Lobe Cortex Volume: Parietal Lobe Percentile for Age:35 Occipital Lobe Cortex Volume: Occipital Lobe Percentile for Age: 63 Whole Brain Volume Brain Percentile for Age: 12 Concordance between qualitative and quantitative hippocampal volume assessment: Concordant Change in brain volumes: No previous volumetric study for comparison See below for comparison of brain volumes in relation to the prior volumetric study: Not applicable. The prior study was reprocessed with the current algorithm version for adequate comparison. Please note that small variations may be due to standard measurement error. Brain Volume: Current percentile: N/A Previous percentile: N/A Hippocampal Volume: Current percentile: N/A Previous percentile: N/A Superior Lateral Ventricle Volume Change: Current percentile: N/A Previous percentile: N/A Inferior Lateral Ventricle Volume Change: Current percentile: N/A Previous percentile: N/A Mean hippocampal volume loss among normal elderly: 0.7% per year, (-0.3 to 1.7; Violeta 2008; also Hieu 2010). [facility] RADIOLOGY Provider, [facility] Kari [facility] - 05/23/2024 * * *Final Report* * * DATE OF EXAM: May 23 2024 3:14PM [facility] 3015 - MRI BRAIN W QUANT WO IVCON / PROCEDURE REASON: Cognitive impairment, mild, so stated * * * * Physician Interpretation * * * * EXAMINATION: MRI BRAIN W QUANT WO IVCON, MRI 3D BRAIN QUANT CLINICAL HISTORY: Cognitive impairment, mild, so stated TECHNIQUE: Axial KIN FLAIR, KIN T2, diffusion and susceptibility weighted imaging without contrast, using the ADNI dementia protocol and 3-D post-processing using the [employer] software at an independent workstation with concurrent physician supervision and images were created, reviewed and archived. MQ: [email or web address] COMPARISON: None RESULT: QUALITATIVE: Acute Intracranial Process: None. Chronic Intracranial Process: Extensive, confluent increased T2 and FLAIR signal is present in the supratentorial white matter which is nonspecific but likely represents extensive chronic microvascular ischemia. Number of chronic lacunar infarcts: Greater than 2 Location of chronic lacunar infarcts: Multiple remote lacunar infarcts in the bilateral centrum semiovale/judd radiata, along with the central joey. Age related white matter changes (ARWMC) rating: White matter lesions: 3 Basal ganglia lesions: 0 Prior intracranial hemorrhage: Parenchymal microhemorrhages: 0 Other (siderosis/macrohemorrhages (>10mm): Not Applicable Amyloid Related Imaging Abnormalities: ARIA-E: N/A ARIA-H Microhemorrhage: N/A ARIA-H Siderosis: N/A Qualitative brain and hippocampal volume loss for age: Cortex: Moderate and Symmetric White Matter: Severe and Symmetric Hippocampi: Severe and Symmetric Ventricles: Commensurate with volume loss. Brain Parenchymal Signal and Morphology: The brain parenchyma is otherwise within normal limits of signal and morphology. There is no evidence of an intracranial mass or extraaxial fluid collection. Other Significant Findings: Mild mucosal thickening in the bilateral ethmoid air cells, severe mucosal thickening in the right sphenoid sinus, and complete opacification of the left maxillary sinus. QUANTITATIVE: Exam Quality: Good for volumetric analysis. Segmentation: Negligible mismapping by visual inspection. Quantitative Data: Total Hippocampal Volume: Percentile for Age: 15 Asymmetry Index: 5.27 Inferior Lateral Vent Volume: Percentile for age: 99 Asymmetry Index: -7.83 Superior Lateral Vent Volume: Percentile for age: 99 Asymmetry Index: 12.7 Temporal Lobe Cortex Volume: Temporal Lobe Percentile for Age: 11 Temporal Lobe Asymmetry Index: 64 Frontal Lobe Cortex Volume: Frontal Lobe Percentile for Age: 29 Frontal Lobe Asymmetry Index: 20 Parietal Lobe Cortex Volume: Parietal Lobe Percentile for Age:35 Occipital Lobe Cortex Volume: Occipital Lobe Percentile for Age: 63 Whole Brain Volume Brain Percentile for Age: 12 Concordance between qualitative and quantitative hippocampal volume assessment: Concordant Change in brain volumes: No previous volumetric study for comparison See below for comparison of brain volumes in relation to the prior volumetric study: Not applicable. The prior study was reprocessed with the current algorithm version for adequate comparison. Please note that small variations may be due to standard measurement error. Brain Volume: Current percentile: N/A Previous percentile: N/A Hippocampal Volume: Current percentile: N/A Previous percentile: N/A Superior Lateral Ventricle Volume Change: Current percentile: N/A Previous percentile: N/A Inferior Lateral Ventricle Volume Change: Current percentile: N/A Previous percentile: N/A Mean hippocampal volume loss among normal elderly: 0.7% per year, (-0.3 to 1.7; Violeta 2008; also Hieu 2010). IMPRESSION IMPRESSION: No acute intracranial process. Chronic changes and quantitative volumes as described. REFERENCES: White Matter Lesions: 0 = No lesions, including symmetrical, well-defined caps or bands 1 = Focal Lesions 2 = Beginning of [place] 3 = Diffuse Involvement of Entire Region Basal Ganglia Lesions: 0 = No Lesions 1 = 1 Focal Lesion (>5mm) 2 = >1 Focal Lesion (>5mm) 3 = Confluent Lesions Hieu Saavedra, et al. The clinical use of structural MRI in Alzheimer disease. Nature Reviews Neurology 6;67 (2010). Violeta et al. Validation of a fully automated 3D hippocampal segmentation method using subjects with Alzheimer's disease mild cognitive impairment, and elderly controls. Neuroimage 43;59 (2008). Javier et al. A New Rating Scale for Age-Related White Matter Changes Applicable to MRI and CT. Stroke. 32:1318 (2001). * Asymmetry index defined as difference between left and right volumes divided by mean or [(L-R/Mean) x 100] (%). Age-matched r (more content not included)... [facility] MR Unspecified body region 3 D post processingon 05-23-2024 * * *Final Report* * * DATE OF EXAM: May 23 2024 3:14PM [facility] 7867 - MRI 3D BRAIN QUANT / PROCEDURE REASON: Cognitive impairment, mild, so stated * * * * Physician Interpretation * * * * EXAMINATION: MRI BRAIN W QUANT WO IVCON, MRI 3D BRAIN QUANT CLINICAL HISTORY: Cognitive impairment, mild, so stated TECHNIQUE: Axial KIN FLAIR, KIN T2, diffusion and susceptibility weighted imaging without contrast, using the ADNI dementia protocol and 3-D post-processing using the [employer] software at an independent workstation with concurrent physician supervision and images were created, reviewed and archived. MQ: [id number] COMPARISON: None RESULT: QUALITATIVE: Acute Intracranial Process: None. Chronic Intracranial Process: Extensive, confluent increased T2 and FLAIR signal is present in the supratentorial white matter which is nonspecific but likely represents extensive chronic microvascular ischemia. Number of chronic lacunar infarcts: Greater than 2 Location of chronic lacunar infarcts: Multiple remote lacunar infarcts in the bilateral centrum semiovale/judd radiata, along with the central joey. Age related white matter changes (ARWMC) rating: White matter lesions: 3 Basal ganglia lesions: 0 Prior intracranial hemorrhage: Parenchymal microhemorrhages: 0 Other (siderosis/macrohemorrhages (>10mm): Not Applicable Amyloid Related Imaging Abnormalities: ARIA-E: N/A ARIA-H Microhemorrhage: N/A ARIA-H Siderosis: N/A Qualitative brain and hippocampal volume loss for age: Cortex: Moderate and Symmetric White Matter: Severe and Symmetric Hippocampi: Severe and Symmetric Ventricles: Commensurate with volume loss. Brain Parenchymal Signal and Morphology: The brain parenchyma is otherwise within normal limits of signal and morphology. There is no evidence of an intracranial mass or extraaxial fluid collection. Other Significant Findings: Mild mucosal thickening in the bilateral ethmoid air cells, severe mucosal thickening in the right sphenoid sinus, and complete opacification of the left maxillary sinus. QUANTITATIVE: Exam Quality: Good for volumetric analysis. Segmentation: Negligible mismapping by visual inspection. Quantitative Data: Total Hippocampal Volume: Percentile for Age: 15 Asymmetry Index: 5.27 Inferior Lateral Vent Volume: Percentile for age: 99 Asymmetry Index: -7.83 Superior Lateral Vent Volume: Percentile for age: 99 Asymmetry Index: 12.7 Temporal Lobe Cortex Volume: Temporal Lobe Percentile for Age: 11 Temporal Lobe Asymmetry Index: 64 Frontal Lobe Cortex Volume: Frontal Lobe Percentile for Age: 29 Frontal Lobe Asymmetry Index: 20 Parietal Lobe Cortex Volume: Parietal Lobe Percentile for Age:35 Occipital Lobe Cortex Volume: Occipital Lobe Percentile for Age: 63 Whole Brain Volume Brain Percentile for Age: 12 Concordance between qualitative and quantitative hippocampal volume assessment: Concordant Change in brain volumes: No previous volumetric study for comparison See below for comparison of brain volumes in relation to the prior volumetric study: Not applicable. The prior study was reprocessed with the current algorithm version for adequate comparison. Please note that small variations may be due to standard measurement error. Brain Volume: Current percentile: N/A Previous percentile: N/A Hippocampal Volume: Current percentile: N/A Previous percentile: N/A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 INR (no units) Date Value 05/19/2022 1.7 05/15/2021 2.3 04/17/2021 1.9 INR (no units) Date Value 04/27/2024 2.6 04/13/2024 3.2 03/30/2024 3.5 Hemoglobin (g/dL) Date Value 06/04/2023 10.0 Hematocrit (%) Date Value 06/04/2023 34.9 Platelet Count (k/uL) Date Value 06/04/2023 297 Creatinine (mg/dL) Date Value 06/03/2023 0.81 08/15/2022 0.89 02/21/2022 0.85 03/13/2021 0.80 08/28/2020 0.83 Bilirubin, Total (mg/dL) Date Value 06/03/2023 0.6 03/13/2021 0.5 ALT (U/L) Date Value 06/03/2023 13 03/13/2021 24 AST (U/L) Date Value 06/03/2023 21 03/13/2021 24 CrCl cannot be calculated (Patient's most recent lab result is older than the maximum 180 days allowed.). ALLERGIES No Known Allergies 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: [facility] current us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 Paroxysmal atrial fibrillation (hcc) Anticoagulation Episode Summary Current INR goal: 2.0-3.0 Assessment: INR result of 2.6 is therapeutic following recent dose decrease. Plan: Current Warfarin Dosing As of 04/27/2024 Full warfarin instructions: 1.5 mg every Thu, Sat; 2.5 mg all other days Called and spoke to patient/caregiver Advised patient to continue current weekly dose as noted above Next lab INR check scheduled on 05/25/2024 Patient's SO, Maria Guadalupe =verbalizes understanding of the plan. Patient denies need for refills. Patient advised to call the PAC with any medication changes, bleeding/bruising concerns, recent changes in vitamin k consumption, if any procedures are coming up, if they have been ill or in the hospital, and if they have missed any doses of warfarin. Coretta Jalloh Formerly [facility] Clinical Pharmacist, Pharmacy Anticoagulation Clinic Pharmacy Anticoagulation Clinic Pager: [phone]. Allergies As of Date: 04/27/2024 (No Known Allergies) Date Reviewed: 04/27/2024 Reviewed by: Vicki Patricia LPN - Fully Assessed Reason for Visit: Anticoagulation Telephone Fu [148] Cmt: Lab INR result Primary Visit Diagnosis: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 [Z79.01] Other Visit Diagnosis:Paroxysmal atrial fibrillation (HCC) [I48.0] Prescriptions as of 04/27/2024 - warfarin (COUMADIN) 2.5 mg tablet Take as directed by anticoagulation clinic - warfarin (COUMADIN) 3 mg tablet Take as directed by anticoagulation clinic - lisinopril (ZESTRIL) 10 mg tablet Take 1 tablet by mouth once daily. - donepezil (ARICEPT) 5 mg tablet Take 1 tablet by mouth daily at bedtime. - warfarin (COUMADIN) 1 mg tablet Take 1 tablet by mouth once daily. - furosemide (LASIX) 20 mg tablet Take 1 tablet by mouth once daily as needed. - warfarin (COUMADIN) 1 mg tablet Take 1 tablet by mouth daily as directed. - tamsulosin (FLOMAX) 0.4 mg Take 1 capsule by mouth daily at bedtime. - atorvastatin (LIPITOR) 40 mg tablet Take 1 tablet by mouth daily at bedtime. - aspirin 81 mg chewable tablet Take 1 tablet by mouth once daily. 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 [Z79.01]09/22/2016 Paroxysmal atrial fibrillation (HCC) [I48.0] 09/22/2016 Hyperlipidemia [E78.5] 08/26/2022 Encounter Status:Closed by CORETTA JALLOH on 04/27/24 Normal [facility] Cobalamin (Vitamin B12) [Mas s/Vol]on 04-27-2024 Interpretation and review of laboratory results Normal [facility] No Panel Informationon 04-27 [facility] PT panel Coag (PPP)on 2024 INR Coag (PPP) [Relative time] 2.6 {INR} High 0.9-1.3 [facility] Comment on above: Order Comment: Stone parmar Type: BLOOD SPECIMENOrdering Facility: [facility] Address: [address] [place] [phone] Result Comment: Mary min K Antagonist (VKA) Therapeutic Range: INR 2 to 3 (Target INR of 2.5) Note: For patients treated with VKA drugs, such as warfarin, the [place] [employer] 2012 Guideline recommends [...] Chest 2012, 141:7S-47S Avel RA, et al. [facility] 2017, 70: 252-289 Performed By: #### 3 4528-0 ####[facility] HOSPITALAMINATARachel [id number] [place] [address] [place] PT Coag (PPP) [Time] 25.2 s High <13.1 [facility] Comment on above: Order Comment: Stone parmar Type: BLOOD SPECIMENOrdering Facility: [facility] Address: [address] [place] [phone] Performed By: #### 3 4528-0 ####[facility] PINELLASWNCLIA [id number] [place] [address] [place] THYROID STIMULATING HORMONEo n 04-27-2024 TSH Qn 0.177 m[IU]/L Low [facility] TSH Qnon 04-27-2024 Interpretation and review of laboratory results Abnormal [facility] TSH SerPl-aCncon 04-27-2024 TSH Qn 0.177 m[IU]/L Low 0.270-4.20 0 [facility] Comment on above: Order Comment: Speci men Type: BLOOD SPECIMENOrdering Facility: [facility] Address: [address] [place] [address] Performed By: #### 2 132-9, 3015-3 ####[facility] [id number] [place] [address] [place] VITAMIN B12on 04-27-2024 Cobalamin (Vitamin B12) [Mass/Vol] 389 pg/mL 232 - 1245 pg/mL [facility] Vit B12 SerPl-mCncon 025 Cobalamin (Vitamin B12) [Mass/Vol] 389 pg/mL Normal 232-1245 [facility] Comment on above: Order Comment: Speci men Type: BLOOD SPECIMENOrdering Facility: [facility] Address: [address] [place] [address] Performed By: #### 2 132-9, 3 ####[facility] [id number] [address] [place] CNPNon 04-25-2024 [facility] ROBY FLORES ([id number]) 1935 M Date Time Provider Department 04/25/24 [facility] During your visit today, we recorded the following information about you: Anabella Salazar LPN 04/25/2024 10:38 AM Signed Pt's SO Gabby, calls to report pt's memory issues are getting worse. Gabby reports pt tells others he has dreams but they are things he is really doing. Pt will look for letters or papers that do not exist. Gabby reports pt was looking for his dog that he had 30 years ago. Gabby reports she does not know what the next step is for pt but she is having a hard time with pt. Scheduled an appt on 04/29. Gabby and pt's daughter will be with pt at appt. RUDY Verdin Mark D, MD 04/25/2024 2:18 PM Signed I would suggest a consult to Geriatrics for further evaluation of his memory issues MD Hakeem Vasquez Kathryn, MA 04/25/2024 2:20 PM Signed Message left for pt to call back. Marian Carrasco MA, RN 04/25/2024 2:32 PM Signed Significant other (Maria Guadalupe) returns call and provider message reviewed. Transferred to schedule consult to geriatrics. Marian Corona RN Allergies As of Date: 04/25/2024 (No Known Allergies) Date Reviewed: 11/26/2023 Reviewed by: Rosie Cruz MA - Fully Assessed Reason for Visit: memory issues [Other] Primary Visit Diagnosis:Dementia, unspecified dementia severity, unspecified dementia type, unspecified whether behavioral, psychotic, or mood disturbance or anxiety ([facility]) [F03.90] Order(s):CONSULT TO GERIATRICS [9012] Order #: [id number]: 1 FUTURE Prescriptions as of 04/25/2024 - warfarin (COUMADIN) 2.5 mg tablet Take as directed by anticoagulation clinic - warfarin (COUMADIN) 3 mg tablet Take as directed by anticoagulation clinic - lisinopril (ZESTRIL) 10 mg tablet Take 1 tablet by mouth once daily. - donepezil (ARICEPT) 5 mg tablet Take 1 tablet by mouth daily at bedtime. - warfarin (COUMADIN) 1 mg tablet Take 1 tablet by mouth once daily. - furosemide (LASIX) 20 mg tablet Take 1 tablet by mouth once daily as needed. - warfarin (COUMADIN) 1 mg tablet Take 1 tablet by mouth daily as directed. - tamsulosin (FLOMAX) 0.4 mg Take 1 capsule by mouth daily at bedtime. - atorvastatin (LIPITOR) 40 mg tablet Take 1 tablet by mouth daily at bedtime. - aspirin 81 mg chewable tablet Take 1 tablet by mouth once daily. 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 [facility] current us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 [Z79.01]09/22/2016 Paroxysmal atrial fibrillation (HCC) [I48.0] 09/22/2016 Hyperlipidemia [E78.5] 08/26/2022 Encounter Status:Closed by MARIAN CORONA on 04/25/24 [facility] Gene 04-13-2024 CNPN Telephone ([facility]) ROBY FLORES ([id number]) 1935 M Date Time Provider Department 04/13/24 CORETTA JALLOH During your visit today, we recorded the following information about you: Coretta Jalloh riya 04/13/2024 11:15 AM Signed [facility] Ambulatory Pharmacy Anticoagulation Clinic Anticoagulation Episode Summary Anticoagulation Care Providers Provider Role Specialty Phone number Stas Mora MD Referring Family Medicine [phone] Roby Martinezenter is a 88 year old year old male patient being evaluated today for a Telemanagement visit. Patient is currently on the following 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(s) Warfarin. Labs PT INR (no units) Date Value 05/19/2022 1.7 05/15/2021 2.3 04/17/2021 1.9 INR (no units) Date Value 04/13/2024 3.2 03/30/2024 3.5 03/17/2024 3.8 Hemoglobin (g/dL) Date Value 06/04/2023 10.0 Hematocrit (%) Date Value 06/04/2023 34.9 Platelet Count (k/uL) Date Value 06/04/2023 297 Creatinine (mg/dL) Date Value 06/03/2023 0.81 08/15/2022 0.89 02/21/2022 0.85 03/13/2021 0.80 08/28/2020 0.83 Bilirubin, Total (mg/dL) Date Value 06/03/2023 0.6 03/13/2021 0.5 ALT (U/L) Date Value 06/03/2023 13 03/13/2021 24 AST (U/L) Date Value 06/03/2023 21 03/13/2021 24 CrCl cannot be calculated (Patient's most recent lab result is older than the maximum 180 days allowed.). 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 Paroxysmal atrial fibrillation (hcc) Anticoagulation Episode Summary Current INR goal: 2.0-3.0 Assessment: INR result of 3.2 is SUPRAtherapeutic due to: unknown cause - did not speak to patient despite recent dose decrease. Plan: Current Warfarin Dosing As of 04/13/2024 Full warfarin instructions: 1.5 mg every Wed, Sat; 2.5 mg all other days Left voice message On both home and mobile (Maria Guadalupe). Advised patient to decrease total weekly regimen Next lab INR check scheduled on 04/27/2024 Will try to reach out again to ensure they got the message to adjust his dose. Patient advised to call the PAC with any medication changes, bleeding/bruising concerns, recent changes in vitamin k consumption, if any procedures are coming up, if they have been ill or in the hospital, and if they have missed any doses of warfarin. Coretta Jalloh Formerly [facility] Clinical Pharmacist, Pharmacy Anticoagulation Clinic Pharmacy Anticoagulation Clinic Pager: [phone]. Elise Paredes Formerly [facility] 04/14/2024 10:45 AM Signed Spoke to patient and Gabby and they will reduce warfarin dosage to 1.5 mg WedSat/ 2.5 mg all other days and go back to the lab in 2 weeks. Elise Paredes, PharmD., CACP Allergies As of Date: 04/13/2024 (No Known Allergies) Date Reviewed: 11/26/2023 Reviewed by: Rosie Cruz MA - Fully Assessed Reason for Visit: Anticoagulation Telephone Fu [148] Cmt: Home INR result Primary Visit Diagnosis:[facility] current us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 [Z79.01] Other Visit Diagnosis:Paroxysmal atrial fibrillation (HCC) [I48.0] Prescriptions as of 04/14/2024 - warfarin (COUMADIN) 2.5 mg tablet Take as directed by anticoagulation clinic - warfarin (COUMADIN) 3 mg tablet Take as directed by anticoagulation clinic - lisinopril (ZESTRIL) 10 mg tablet Take 1 tablet by mouth once daily. - donepezil (ARICEPT) 5 mg tablet Take 1 tablet by mouth daily at bedtime. - warfarin (COUMADIN) 1 mg tablet Take 1 tablet by mouth once daily. - furosemide (LASIX) 20 mg tablet Take 1 tablet by mouth once daily as needed. - warfarin (COUMADIN) 1 mg tablet Take 1 tablet by mouth daily as directed. - tamsulosin (FLOMAX) 0.4 mg Take 1 capsule by mouth daily at bedtime. - atorvastatin (LIPITOR) 40 mg tablet Take 1 tablet by mouth daily at bedtime. - aspirin 81 mg chewable tablet Take 1 tablet by mouth once daily. 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 [Z79.01]09/22/2016 Paroxysmal atrial fibrillation (HCC) [I48.0] 09/22/2016 Hyperlipidemia [E78.5] 08/26/2022 Encounter Status:Closed by CORETTA JALLOH on 04/13/24 Normal [facility] PT panel Coag (PPP)on 2024 INR Coag (PPP) [Relative time] 3.2 {INR} High 0.9-1.3 [facility] Comment on above: Order Comment: Stone parmar Type: BLOOD SPECIMENOrdering Facility: [facility] Address: [address] [place] [id number] Result Comment: Mary min K Antagonist (VKA) Therapeutic Range: INR 2 to 3 (Target INR of 2.5) Note: For patients treated with VKA drugs, such as warfarin, the [place] [employer] 2012 Guideline recommends [...] Chest 2012, 141:7S-47S Avel RA, et al. [facility] 2017, 70: 252-289 Performed By: #### 3 4528-0 ####[facility]ITALAMINATALAKEVIEW [facility] [id number] [place] [address] [place] PT Coag (PPP) [Time] 31.2 s High <13.1 [facility] Comment on above: Order Comment: Stone parmar Type: BLOOD SPECIMENOrdering Facility: [facility] Address: [address] [place] [id number] Performed By: #### 3 4528-0 ####[facility] [id number] [address] [place] Gene 03-30-2024 MICHELINE Telephone ([facility]) ROBY FLORES ([id number]) 1935 M Date Time Provider Department 03/30/24 CORETTA JALLOH During your visit today, we recorded the following information about you: Coretta Jalloh Formerly [facility] 03/30/2024 9:57 AM Signed [facility] Pharmacy Anticoagulation Clinic Anticoagulation Episode Summary Anticoagulation Care Providers Provider Role Specialty Phone number Stas Mora MD Referring Family Medicine [phone] Roby Flores is a 88 year old year old male patient being evaluated today for a Lab INR. Patient is currently on the following 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(s) Warfarin. Labs PT INR (no units) Date Value 05/19/2022 1.7 05/15/2021 2.3 04/17/2021 1.9 INR (no units) Date Value 03/30/2024 3.5 03/17/2024 3.8 03/03/2024 3.6 Hemoglobin (g/dL) Date Value 06/04/2023 10.0 Hematocrit (%) Date Value 06/04/2023 34.9 Platelet Count (k/uL) Date Value 06/04/2023 297 Creatinine (mg/dL) Date Value 06/03/2023 0.81 08/15/2022 0.89 02/21/2022 0.85 03/13/2021 0.80 08/28/2020 0.83 Bilirubin, Total (mg/dL) Date Value 06/03/2023 0.6 03/13/2021 0.5 ALT (U/L) Date Value 06/03/2023 13 03/13/2021 24 AST (U/L) Date Value 06/03/2023 21 03/13/2021 24 CrCl cannot be calculated (Patient's most recent lab result is older than the maximum 180 days allowed.). ALLERGIES No Known Allergies 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: [facility] current us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 Paroxysmal atrial fibrillation (hcc) Anticoagulation Episode Summary Current INR goal: 2.0-3.0 Assessment: INR result of 3.5 is SUPRAtherapeutic due to: No obvious cause (patient denies medication change, grapefruit/cranberry/pomegra dustin/lazaro ingestion, OTC medication use, change in herbal/nutritional supplement, accidental overdosage, change in warfarin tablet shape or color, change in vit K consumption, recent illness (NVD, fever), any changes to general health, changes in tobacco use, or EtOH consumption) Maria Guadalupe said his appetite has been less but hasn't changed much recently. We have been reducing his dose for some time. Plan: Current Warfarin Dosing As of 03/30/2024 Full warfarin instructions: 03/30: 1.25 mg; Otherwise 1.5 mg every Wed; 2.5 mg all other days Called and spoke to patient/caregiver Advised patient to decrease dose for 1 day and decrease total weekly regimen Next lab INR check scheduled on 04/13/2024 Patient's caregiver verbalizes understanding of the plan. Patient denies need for refills. Patient advised to call the PAC with any medication changes, bleeding/bruising concerns, recent changes in vitamin k consumption, if any procedures are coming up, if they have been ill or in the hospital, and if they have missed any doses of warfarin. Coretta Jalloh Formerly [facility] Clinical Pharmacist, Pharmacy Anticoagulation Clinic Pharmacy Anticoagulation Clinic Pager: [phone]. Allergies As of Date: 03/30/2024 (No Known Allergies) Date Reviewed: 11/26/2023 Reviewed by: Rosie Cruz MA - Fully Assessed Reason for Visit: Anticoagulation Telephone Fu [148] Cmt: Lab INR result Primary Visit Diagnosis: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 [Z79.01] Other Visit Diagnosis:Paroxysmal atrial fibrillation (HCC) [I48.0] Prescriptions as of 03/30/2024 - warfarin (COUMADIN) 2.5 mg tablet Take as directed by anticoagulation clinic - warfarin (COUMADIN) 3 mg tablet Take as directed by anticoagulation clinic - lisinopril (ZESTRIL) 10 mg tablet Take 1 tablet by mouth once daily. - donepezil (ARICEPT) 5 mg tablet Take 1 tablet by mouth daily at bedtime. - warfarin (COUMADIN) 1 mg tablet Take 1 tablet by mouth once daily. - furosemide (LASIX) 20 mg tablet Take 1 tablet by mouth once daily as needed. - warfarin (COUMADIN) 1 mg tablet Take 1 tablet by mouth daily as directed. - tamsulosin (FLOMAX) 0.4 mg Take 1 capsule by mouth daily at bedtime. - atorvastatin (LIPITOR) 40 mg tablet Take 1 tablet by mouth daily at bedtime. - aspirin 81 mg chewable tablet Take 1 tablet by mouth once daily. 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 [Z79.01]09/22/2016 Paroxysmal atrial fibrillation (HCC) [I48.0] 09/22/2016 Hyperlipidemia [E78.5] 08/26/2022 Encounter Status:Closed by CORETTA JALLOH on 03/30/24 Normal [facility] PT panel Coag (PPP)on 2024 INR Coag (PPP) [Relative time] 3.5 {INR} High 0.9-1.3 [facility] Comment on above: Order Comment: Speci men Type: BLOOD SPECIMENOrdering Facility: [facility] Address: [address] [place] [address] Result Comment: Mary min K Antagonist (VKA) Therapeutic Range: INR 2 to 3 (Target INR of 2.5) Note: For patients treated with VKA drugs, such as warfarin, the [place] [employer] 2012 Guideline recommends [...] Chest 2012, 141:7S-47S Avel RA, et al. [facility] 2017, 70: 252-289 Performed By: #### 3 4528-0 ####[facility] BERNICE LINWNCLIA [id number] [place] [address] [place] PT Coag (PPP) [Time] 33.4 s High <13.1 [facility] Comment on above: Order Comment: Speci men Type: BLOOD SPECIMENOrdering Facility: [facility] Address: [facility][note 3] [place] [address] Performed By: #### 3 4528-0 ####[facility] DENISELONG LAKENCLIA [id number] [address] OF [facility] 03-17-2024 [facility] ROBY FLORES ([id number]) 1935 M Date Time Provider Department 03/17/24 JOSY GANDHI During your visit today, we recorded the following information about you: Josy Gandhi riya 03/17/2024 9:38 AM Signed [facility] Ambulatory Pharmacy Anticoagulation Clinic Anticoagulation Episode Summary Anticoagulation Care Providers Provider Role Specialty Phone number Stas Mora MD Referring Family Medicine [phone] Roby Martinezenter is a 88 year old year old male patient being evaluated today for a Lab INR. Patient is currently on the following 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(s) Warfarin. Labs PT INR (no units) Date Value 05/19/2022 1.7 05/15/2021 2.3 04/17/2021 1.9 INR (no units) Date Value 03/17/2024 3.8 03/03/2024 3.6 02/10/2024 3.3 Hemoglobin (g/dL) Date Value 06/04/2023 10.0 Hematocrit (%) Date Value 06/04/2023 34.9 Platelet Count (k/uL) Date Value 06/04/2023 297 Creatinine (mg/dL) Date Value 06/03/2023 0.81 08/15/2022 0.89 02/21/2022 0.85 03/13/2021 0.80 08/28/2020 0.83 Bilirubin, Total (mg/dL) Date Value 06/03/2023 0.6 03/13/2021 0.5 ALT (U/L) Date Value 06/03/2023 13 03/13/2021 24 AST (U/L) Date Value 06/03/2023 21 03/13/2021 24 CrCl cannot be calculated (Patient's most recent lab result is older than the maximum 180 days allowed.). 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 Paroxysmal atrial fibrillation (hcc) Anticoagulation Episode Summary Current INR goal: 2.0-3.0 Assessment: INR result of 3.8 is SUPRAtherapeutic due to: No obvious cause (patient denies medication change, grapefruit/cranberry/pomegra dustin/lazaro ingestion, OTC medication use, change in herbal/nutritional supplement, accidental overdosage, change in warfarin tablet shape or color, change in vit K consumption, recent illness (NVD, fever), any changes to general health, changes in tobacco use, or EtOH consumption) Plan: Current Warfarin Dosing As of 03/17/2024 Full warfarin instructions: 03/17: Hold; Otherwise 3 mg every Thu; 2.5 mg all other days Called and spoke to patient/caregiver Advised patient to hold 1 dose then decrease current regimen Next lab INR check scheduled on 03/31/2024 Patient's caregiver verbalizes understanding of the plan. Patient denies need for refills. Patient advised to call the PAC with any medication changes, bleeding/bruising concerns, recent changes in vitamin k consumption, if any procedures are coming up, if they have been ill or in the hospital, and if they have missed any doses of warfarin. Josy Gandhi Formerly [facility] Clinical Pharmacist, Pharmacy Anticoagulation Clinic Pharmacy Anticoagulation Clinic Pager: [phone]. 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:[facility] current us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 [Z79.01] Other Visit Diagnosis:Paroxysmal atrial fibrillation (HCC) [I48.0] Prescriptions as of 03/17/2024 - warfarin (COUMADIN) 2.5 mg tablet Take as directed by anticoagulation clinic - warfarin (COUMADIN) 3 mg tablet Take as directed by anticoagulation clinic - lisinopril (ZESTRIL) 10 mg tablet Take 1 tablet by mouth once daily. - donepezil (ARICEPT) 5 mg tablet Take 1 tablet by mouth daily at bedtime. - warfarin (COUMADIN) 1 mg tablet Take 1 tablet by mouth once daily. - furosemide (LASIX) 20 mg tablet Take 1 tablet by mouth once daily as needed. - warfarin (COUMADIN) 1 mg tablet Take 1 tablet by mouth daily as directed. - tamsulosin (FLOMAX) 0.4 mg Take 1 capsule by mouth daily at bedtime. - atorvastatin (LIPITOR) 40 mg tablet Take 1 tablet by mouth daily at bedtime. - aspirin 81 mg chewable tablet Take 1 tablet by mouth once daily. 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 [facility] current us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 [Z79.01]09/22/2016 Paroxysmal atrial fibrillation (HCC) [I48.0] 09/22/2016 Hyperlipidemia [E78.5] 08/26/2022 Encounter Status:Closed by JOSY GANDHI on 03/17/24 Normal [facility] PT panel Coag (PPP)on 2023 INR Coag (PPP) [Relative time] 3.8 {INR} High 0.9-1.3 [facility] Comment on above: Order Comment: Stone parmar Type: BLOOD SPECIMENOrdering Facility: [facility] Address: [address] [place] [place] [id number] Result Comment: Mary min K Antagonist (VKA) Therapeutic Range: INR 2 to 3 (Target INR of 2.5) Note: For patients treated with VKA drugs, such as warfarin, the [place] [employer] 2012 Guideline recommends [...] Chest 2012, 141:7S-47S Avel RA, et al. [facility] 2017, 70: 252-289 Performed By: #### 3 4528-0 ####[facility]PITALAMINATARachel [id number] [place] [address] [place] PT Coag (PPP) [Time] 36.4 s High <13.1 [facility] Comment on above: Order Comment: Stone parmar Type: BLOOD SPECIMENOrdering Facility: [facility] Address: [address] [place] [id number] Performed By: #### 3 4528-0 ####[facility] [id number] [address] [place] Gene 03-03-2024 MICHELINE Telephone ([facility]) ROBY FLORES ([id number]) 1935 M Date Time Provider Department 03/03/24 ELISE PAREDES During your visit today, we recorded the following information about you: [facility] 03/03/2024 9:40 AM Signed [facility] Ambulatory Pharmacy Anticoagulation Clinic Anticoagulation Episode Summary Anticoagulation Care Providers Provider Role Specialty Phone number Stas Mora MD Referring Family Medicine [phone] Roby Flores is a 88 year old year old male patient being evaluated today for a Lab INR. Patient is currently on the following 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(s) Warfarin. Labs PT INR (no units) Date Value 05/19/2022 1.7 05/15/2021 2.3 04/17/2021 1.9 INR (no units) Date Value 03/03/2024 3.6 02/10/2024 3.3 01/20/2024 3.4 Hemoglobin (g/dL) Date Value 06/04/2023 10.0 Hematocrit (%) Date Value 06/04/2023 34.9 Platelet Count (k/uL) Date Value 06/04/2023 297 Creatinine (mg/dL) Date Value 06/03/2023 0.81 08/15/2022 0.89 02/21/2022 0.85 03/13/2021 0.80 08/28/2020 0.83 Bilirubin, Total (mg/dL) Date Value 06/03/2023 0.6 03/13/2021 0.5 ALT (U/L) Date Value 06/03/2023 13 03/13/2021 24 AST (U/L) Date Value 06/03/2023 21 03/13/2021 24 CrCl cannot be calculated (Patient's most recent lab result is older than the maximum 180 days allowed.). 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 Paroxysmal atrial fibrillation (hcc) Anticoagulation Episode Summary Current INR goal: 2.0-3.0 Assessment: INR result of 3.6 is SUPRAtherapeutic due to: No obvious cause (patient denies medication change, grapefruit/cranberry/pomegra dustin/lazaro ingestion, OTC medication use, change in herbal/nutritional supplement, accidental overdosage, change in warfarin tablet shape or color, change in vit K consumption, recent illness (NVD, fever), any changes to general health, changes in tobacco use, or EtOH consumption) Plan: Current Warfarin Dosing As of 03/03/2024 Full warfarin instructions: 3 mg every Mon, Fri; 2.5 mg all other days Called and spoke to patient/caregiver Advised patient to decrease total weekly regimen Next lab INR check scheduled on 03/22/2024 Spouse verbalizes understanding of the plan. Patient denies need for refills. Patient advised to call the PAC with any medication changes, bleeding/bruising concerns, recent changes in vitamin k consumption, if any procedures are coming up, if they have been ill or in the hospital, and if they have missed any doses of warfarin. Elise Paredes Formerly [facility] Clinical Pharmacist, Pharmacy Anticoagulation Clinic Pharmacy Anticoagulation Clinic Pager: [phone]. Allergies As of Date: 03/03/2024 (No Known Allergies) Date Reviewed: 11/26/2023 Reviewed by: Rosie Cruz MA - Fully Assessed Reason for Visit: Anticoagulation Telephone Fu [148] Cmt: Lab INR result Primary Visit Diagnosis: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 [Z79.01] Other Visit Diagnosis:Paroxysmal atrial fibrillation (HCC) [I48.0] Order(s):Order #: [id number] Order #: [id number] Prescriptions as of 03/03/2024 - warfarin (COUMADIN) 2.5 mg tablet Take as directed by anticoagulation clinic - warfarin (COUMADIN) 3 mg tablet Take as directed by anticoagulation clinic - lisinopril (ZESTRIL) 10 mg tablet Take 1 tablet by mouth once daily. - donepezil (ARICEPT) 5 mg tablet Take 1 tablet by mouth daily at bedtime. - warfarin (COUMADIN) 1 mg tablet Take 1 tablet by mouth once daily. - furosemide (LASIX) 20 mg tablet Take 1 tablet by mouth once daily as needed. - warfarin (COUMADIN) 1 mg tablet Take 1 tablet by mouth daily as directed. - tamsulosin (FLOMAX) 0.4 mg Take 1 capsule by mouth daily at bedtime. - atorvastatin (LIPITOR) 40 mg tablet Take 1 tablet by mouth daily at bedtime. - aspirin 81 mg chewable tablet Take 1 tablet by mouth once daily. 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 Normal [facility] PT panel Coag (PPP)on 2023 INR Coag (PPP) [Relative time] 3.6 {INR} High 0.9-1.3 [facility] Comment on above: Order Comment: Speci men Type: BLOOD SPECIMENOrdering Facility: [facility] Address: [address] [place] [address] Result Comment: Mary min K Antagonist (VKA) Therapeutic Range: INR 2 to 3 (Target INR of 2.5) Note: For patients treated with VKA drugs, such as warfarin, the [place] [employer] 2012 Guideline recommends [...] GH, et al. Chest 2012, 141:7S-47S Avel CARDONA, et al. [facility] 2017, 70: 252-289 Performed By: #### 3 4528-0 ####[facility] DENISELONG [facility]AMINATALA[facility] [id number] [place] [address] [place] PT Coag (PPP) [Time] 35.1 s High <13.1 [facility] Comment on above: Order Comment: Speci men Type: BLOOD SPECIMENOrdering Facility: [facility] Address: [address] [place] [address] Performed By: #### 3 4528-0 ####[facility] [id number] [address] [place] CNPMarizol 02-10-2024 [facility] ROBY FLORES ([id number]) 1935 M Date Time Provider Department 02/10/24 CORETTA JALLOH During your visit today, we recorded the following information about you: Coretta Jalloh Formerly [facility] 02/10/2024 9:12 AM Signed [facility] Ambulatory Pharmacy Anticoagulation Clinic Anticoagulation Episode Summary Anticoagulation Care Providers Provider Role Specialty Phone number Stas Mora MD Referring Family Medicine [phone] Roby Garcia Sandra is a 88 year old year old male patient being evaluated today for a Telemanagement visit. Patient is currently on the following 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(s) Warfarin. Labs PT INR (no units) Date Value 05/19/2022 1.7 05/15/2021 2.3 04/17/2021 1.9 INR (no units) Date Value 02/10/2024 3.3 01/20/2024 3.4 12/23/2023 2.2 Hemoglobin (g/dL) Date Value 06/04/2023 10.0 Hematocrit (%) Date Value 06/04/2023 34.9 Platelet Count (k/uL) Date Value 06/04/2023 297 Creatinine (mg/dL) Date Value 06/03/2023 0.81 08/15/2022 0.89 02/21/2022 0.85 03/13/2021 0.80 08/28/2020 0.83 Bilirubin, Total (mg/dL) Date Value 06/03/2023 0.6 03/13/2021 0.5 ALT (U/L) Date Value 06/03/2023 13 03/13/2021 24 AST (U/L) Date Value 06/03/2023 21 03/13/2021 24 CrCl cannot be calculated (Patient's most recent lab result is older than the maximum 180 days allowed.). 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 Paroxysmal atrial fibrillation (hcc) Anticoagulation Episode Summary Current INR goal: 2.0-3.0 Assessment: INR result of 3.3 is SUPRAtherapeutic due to: unknown cause - did not speak to patient Plan: Current Warfarin Dosing As of 02/10/2024 Full warfarin instructions: 2.5 mg every Thu, Thu; 3 mg all other days Left voice message For Maria Guadalupe. Advised patient to decrease total weekly regimen - small change. Next lab INR check scheduled on 02/24/2024 Patient advised to call the PAC with any medication changes, bleeding/bruising concerns, recent changes in vitamin k consumption, if any procedures are coming up, if they have been ill or in the hospital, and if they have missed any doses of warfarin. Coretta Jalloh RPh Clinical Pharmacist, Pharmacy Anticoagulation Clinic Pharmacy Anticoagulation Clinic Pager: [phone]. Coretta Jalloh RPh 02/24/2024 3:53 PM Signed Patient was due to test INR today at the lab - will continue to monitor for results. Coretta Jalloh PharmD Pharmacy Anticoagulation Clinic [place], Coretta, Formerly [facility] 03/02/2024 1:38 PM Signed Roby Flores was called and reminded to test INR today or as soon as possible. Spoke to Maria Guadalupe, she said she would try to get him to the lab tomorrow - 03/03. Coretta Jalloh PharmD Pharmacy Anticoagulation Clinic Allergies As of Date: 02/10/2024 (No Known Allergies) Date Reviewed: 11/26/2023 Reviewed by: Rosie Cruz MA - Fully Assessed Reason for Visit: Anticoagulation Telephone Fu [148] Cmt: Lab INR result Primary Visit Diagnosis: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 [Z79.01] Other Visit Diagnosis:Paroxysmal atrial fibrillation (HCC) [I48.0] Prescriptions as of 03/02/2024 - warfarin (COUMADIN) 3 mg tablet Take 1 tablet by mouth daily as directed. - lisinopril (ZESTRIL) 10 mg tablet Take 1 tablet by mouth once daily. - donepezil (ARICEPT) 5 mg tablet Take 1 tablet by mouth daily at bedtime. - warfarin (COUMADIN) 1 mg tablet Take 1 tablet by mouth once daily. - furosemide (LASIX) 20 mg tablet Take 1 tablet by mouth once daily as needed. - warfarin (COUMADIN) 1 mg tablet Take 1 tablet by mouth daily as directed. - tamsulosin (FLOMAX) 0.4 mg Take 1 capsule by mouth daily at bedtime. - warfarin (COUMADIN) 2.5 mg tablet Take 2.5 mg everyday except 3.75 mg on Fridays - atorvastatin (LIPITOR) 40 mg tablet Take 1 tablet by mouth daily at bedtime. - aspirin 81 mg chewable tablet Take 1 tablet by mouth once daily. 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 [Z79.01]09/22/2016 Paroxysmal atrial fibrillation (HCC) [I48.0] 09/22/2016 Hyperlipidemia [E78.5] 08/26/2022 Encounter Status:Closed by CORETTA JALLOH on 02/10/24 Normal [facility] PT panel Coag (PPP)on 2023 INR Coag (PPP) [Relative time] 3.3 {INR} High 0.9-1.3 [facility] Comment on above: Order Comment: Specrosalio parmar Type: BLOOD SPECIMENOrdering Facility: [facility] Address: [address] [place] [address] Result Comment: Mary min K Antagonist (VKA) Therapeutic Range: INR 2 to 3 (Target INR of 2.5) Note: For patients treated with VKA drugs, such as warfarin, the [place] [employer] 2012 Guideline recommends [...] Chest 2012, 141:7S-47S Avel RA, et al. [facility] 2017, 70: 252-289 Performed By: #### 3 4528-0 ####[facility] HOSPITALRachel [id number] [place] [address] [place] PT Coag (PPP) [Time] 31.4 s High <13.1 [facility] Comment on above: Order Comment: Stone parmar Type: BLOOD SPECIMENOrdering Facility: [facility] Address: [address] [place] [address] Performed By: #### 3 4528-0 ####[facility] [id number] [place] [address] [place] Gene 01-20-2024 CNPN Telephone (PHAMTE) ROBY FLORES ([id number]) 1935 M Date Time Provider Department 01/20/24 CORETTA JALLOH During your visit today, we recorded the following information about you: Coretta Jalloh RPh 01/20/2024 10:25 AM Signed [facility] Ambulatory Pharmacy Anticoagulation Clinic Anticoagulation Episode Summary Anticoagulation Care Providers Provider Role Specialty Phone number Stas Mora MD Referring Family Medicine [phone] Roby Flores is a 88 year old year old male patient being evaluated today for a Telemanagement visit. Patient is currently on the following 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(s) Warfarin. Labs PT INR (no units) Date Value 05/19/2022 1.7 05/15/2021 2.3 04/17/2021 1.9 INR (no units) Date Value 01/20/2024 3.4 12/23/2023 2.2 12/09/2023 1.9 Hemoglobin (g/dL) Date Value 06/04/2023 10.0 Hematocrit (%) Date Value 06/04/2023 34.9 Platelet Count (k/uL) Date Value 06/04/2023 297 Creatinine (mg/dL) Date Value 06/03/2023 0.81 08/15/2022 0.89 02/21/2022 0.85 03/13/2021 0.80 08/28/2020 0.83 Bilirubin, Total (mg/dL) Date Value 06/03/2023 0.6 03/13/2021 0.5 ALT (U/L) Date Value 06/03/2023 13 03/13/2021 24 AST (U/L) Date Value 06/03/2023 21 03/13/2021 24 CrCl cannot be calculated (Patient's most recent lab result is older than the maximum 180 days allowed.). ALLERGIES No Known Allergies 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: [facility] current us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 Paroxysmal atrial fibrillation (hcc) Anticoagulation Episode Summary Current INR goal: 2.0-3.0 Assessment: INR result of 3.4 is SUPRAtherapeutic due to: Decreased vitamin k intake Maria Guadalupe said she will try to get him to eat more vit K containing foods. Plan: Current Warfarin Dosing As of 01/20/2024 Full warfarin instructions: 01/19: 1.5 mg; Otherwise 2.5 mg every Sun; 3 mg all other days Called and spoke to patient/caregiver Advised patient to decrease dose for 1 day only then resume weekly regimen Next lab INR check scheduled on 02/10/2024 Patient's caregiver, Maria Guadalupe, verbalizes understanding of the plan. Patient denies need for refills. Patient advised to call the PAC with any medication changes, bleeding/bruising concerns, recent changes in vitamin k consumption, if any procedures are coming up, if they have been ill or in the hospital, and if they have missed any doses of warfarin. Coretta Jalloh Formerly [facility] Clinical Pharmacist, Pharmacy Anticoagulation Clinic Pharmacy Anticoagulation Clinic Pager: [phone]. 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: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 [Z79.01] Other Visit Diagnosis:Paroxysmal atrial fibrillation (HCC) [I48.0] Prescriptions as of 01/20/2024 - warfarin (COUMADIN) 3 mg tablet Take 1 tablet by mouth daily as directed. - lisinopril (ZESTRIL) 10 mg tablet Take 1 tablet by mouth once daily. - donepezil (ARICEPT) 5 mg tablet Take 1 tablet by mouth daily at bedtime. - warfarin (COUMADIN) 1 mg tablet Take 1 tablet by mouth once daily. - furosemide (LASIX) 20 mg tablet Take 1 tablet by mouth once daily as needed. - warfarin (COUMADIN) 1 mg tablet Take 1 tablet by mouth daily as directed. - tamsulosin (FLOMAX) 0.4 mg Take 1 capsule by mouth daily at bedtime. - warfarin (COUMADIN) 2.5 mg tablet Take 2.5 mg everyday except 3.75 mg on Fridays - atorvastatin (LIPITOR) 40 mg tablet Take 1 tablet by mouth daily at bedtime. - aspirin 81 mg chewable tablet Take 1 tablet by mouth once daily. 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 [Z79.01]09/22/2016 Paroxysmal atrial fibrillation (HCC) [I48.0] 09/22/2016 Hyperlipidemia [E78.5] 08/26/2022 Encounter Status:Closed by CORETTA JALLOH on 01/20/24 Normal [facility] PT panel Coag (PPP)on 2023 INR Coag (PPP) [Relative time] 3.4 {INR} High 0.9-1.3 [facility] Comment on above: Order Comment: Speci men Type: BLOOD SPECIMENOrdering Facility: [facility] Address: [facility][note 3] [facility] [place] [id number] Result Comment: Mary min K Antagonist (VKA) Therapeutic Range: INR 2 to 3 (Target INR of 2.5) Note: For patients treated with VKA drugs, such as warfarin, the [place] [employer] 2012 Guideline recommends [...] Chest 2012, 141:7S-47S Avel RA, et al. [facility] 2017, 70: 252-289 Performed By: #### 3 4528-0 ####[facility] [id number] [place] [address] [place] PT Coag (PPP) [Time] 31.8 s High <13.1 [facility] Comment on above: Order Comment: Speci men Type: BLOOD SPECIMENOrdering Facility: [facility] Address: [address] [id number] Performed By: #### 3 4528-0 ####[facility] [id number] [address] [facility] Tele[facility] ([facility] ROBY FLORES ([id number]) 1935 M Date Time Provider Department 01/04/24 STAS MORA [facility] During your visit today, we recorded the following information about you: Oliva Westbrook LPN 01/04/2024 9:37 AM Signed Patient significant other Maria Guadalupe calling asking for a warfarin 3 mg rx to be sent to [facility]. He is taking 3 mg daily and has 1 mg tablets and 2.5 mg tablets. He keeps running out of the 1 mg every 10 days and pharmacy asking for another rx. Pending rx needs completed. Please advise Jenna Fitzpatrick APRN.SHIRT FOLDING MACHINE OPERATOR 01/04/2024 10:42 AM Signed The following approved medication requests have been transmitted electronically. Requested Prescriptions Signed Prescriptions Disp Refills warfarin (COUMADIN) 3 mg tablet 30 tablet 11 Sig: Take 1 tablet by mouth daily as directed. Authorizing Provider: JENNA FITZPATRICK APRN.SHIRT FOLDING MACHINE OPERATOR Allergies As of Date: 01/04/2024 (No Known Allergies) Date Reviewed: 11/26/2023 Reviewed by: Rosie Cruz MA - Fully Assessed Reason for Visit: Medication Request [138] Primary Visit Diagnosis:Paroxysmal atrial fibrillation (HCC) [I48.0] Order(s):warfarin (COUMADIN) 3 mg tabletTake 1 tablet by mouth daily as directed.Disp: 30 tabletRfl: 11 Prescriptions as of 01/04/2024 - warfarin (COUMADIN) 3 mg tablet Take 1 tablet by mouth daily as directed. - lisinopril (ZESTRIL) 10 mg tablet Take 1 tablet by mouth once daily. - donepezil (ARICEPT) 5 mg tablet Take 1 tablet by mouth daily at bedtime. - warfarin (COUMADIN) 1 mg tablet Take 1 tablet by mouth once daily. - furosemide (LASIX) 20 mg tablet Take 1 tablet by mouth once daily as needed. - warfarin (COUMADIN) 1 mg tablet Take 1 tablet by mouth daily as directed. - tamsulosin (FLOMAX) 0.4 mg Take 1 capsule by mouth daily at bedtime. - warfarin (COUMADIN) 2.5 mg tablet Take 2.5 mg everyday except 3.75 mg on Fridays - atorvastatin (LIPITOR) 40 mg tablet Take 1 tablet by mouth daily at bedtime. - aspirin 81 mg chewable tablet Take 1 tablet by mouth once daily. 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 Encounter Status:Closed by JENNA FITZPATRICK on 01/04/24 Normal [facility] Gene 12-24-2023 CNPN Telephone (PHAMTE) ROBY FLORES ([id number]) 1935 M Date Time Provider Department 12/24/23 ELISE PAREDES During your visit today, we recorded the following information about you: Elise Paredes, [facility] 12/24/2023 2:32 PM Signed [facility] Ambulatory Pharmacy Anticoagulation Clinic Anticoagulation Episode Summary Anticoagulation Care Providers Provider Role Specialty Phone number Stas Mora MD Referring Family Medicine [phone] Robykaran Flores is a 88 year old year old male patient being evaluated today for a Lab INR. Patient is currently on the following 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(s) Warfarin. Labs PT INR (no units) Date Value 05/19/2022 1.7 05/15/2021 2.3 04/17/2021 1.9 INR (no units) Date Value 12/23/2023 2.2 12/09/2023 1.9 11/26/2023 1.5 Hemoglobin (g/dL) Date Value 06/04/2023 10.0 Hematocrit (%) Date Value 06/04/2023 34.9 Platelet Count (k/uL) Date Value 06/04/2023 297 Creatinine (mg/dL) Date Value 06/03/2023 0.81 08/15/2022 0.89 02/21/2022 0.85 03/13/2021 0.80 08/28/2020 0.83 Bilirubin, Total (mg/dL) Date Value 06/03/2023 0.6 03/13/2021 0.5 ALT (U/L) Date Value 06/03/2023 13 03/13/2021 24 AST (U/L) Date Value 06/03/2023 21 03/13/2021 24 CrCl cannot be calculated (Patient's most recent lab result is older than the maximum 180 days allowed.). 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 Paroxysmal atrial fibrillation (hcc) Anticoagulation Episode Summary Current INR goal: 2.0-3.0 Assessment: INR result of 2.2 is therapeutic Plan: Current Warfarin Dosing As of 12/24/2023 Full warfarin instructions: 2.5 mg every Sun; 3 mg all other days Left voice message Advised patient to continue current weekly dose as noted above Next lab INR check scheduled on 01/21/2024 Elise Paredes [facility] Clinical Pharmacist, Pharmacy Anticoagulation Clinic Pharmacy Anticoagulation Clinic Pager: [phone]. Allergies As of Date: 12/24/2023 (No Known Allergies) Date Reviewed: 11/26/2023 Reviewed by: Rosie Cruz MA - Fully Assessed Reason for Visit: Anticoagulation Telephone Fu [148] Cmt: Lab INR Primary Visit Diagnosis:[facility] current us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 [Z79.01] Other Visit Diagnosis:Paroxysmal atrial fibrillation (HCC) [I48.0] Order(s):PROTHROMBIN TIME [SQPT] Order #: [id number] STANDING Prescriptions as of 12/24/2023 - lisinopril (ZESTRIL) 10 mg tablet Take 1 tablet by mouth once daily. - donepezil (ARICEPT) 5 mg tablet Take 1 tablet by mouth daily at bedtime. - warfarin (COUMADIN) 1 mg tablet Take 1 tablet by mouth once daily. - furosemide (LASIX) 20 mg tablet Take 1 tablet by mouth once daily as needed. - warfarin (COUMADIN) 1 mg tablet Take 1 tablet by mouth daily as directed. - tamsulosin (FLOMAX) 0.4 mg Take 1 capsule by mouth daily at bedtime. - warfarin (COUMADIN) 2.5 mg tablet Take 2.5 mg everyday except 3.75 mg on Fridays - atorvastatin (LIPITOR) 40 mg tablet Take 1 tablet by mouth daily at bedtime. - aspirin 81 mg chewable tablet Take 1 tablet by mouth once daily. 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 [facility] current us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 [Z79.01]09/22/2016 Paroxysmal atrial fibrillation (HCC) [I48.0] 09/22/2016 Hyperlipidemia [E78.5] 08/26/2022 Encounter Status:Closed by ELISE PAREDES on 12/24/23 Normal [facility] PT panel Coag (PPP)on 2023 INR Coag (PPP) [Relative time] 2.2 {INR} High 0.9-1.3 [facility] Comment on above: Order Comment: Speci men Type: BLOOD SPECIMENOrdering Facility: [facility] Address: [address] [place], [place] [id number] Result Comment: Mary min K Antagonist (VKA) Therapeutic Range: INR 2 to 3 (Target INR of 2.5) Note: For patients treated with VKA drugs, such as warfarin, the [place] [employer] 2012 Guideline recommends [...] Chest 2012, 141:7S-47S Avel CARDONA et al. [facility] 2017, 70: 252-289 Performed By: #### 3 4528-0 ####[facility] [id number] [place] [address] [place] PT Coag (PPP) [Time] 22.1 s High 9.7-13.0 [facility] Comment on above: Order Comment: Speci men Type: BLOOD SPECIMENOrdering Facility: [facility] Address: [address] [place] [address] Performed By: #### 3 4528-0 ####[facility] [id number] [address] [place] CNPMarizol 12-10-2023 CNPN Telephone (PHAMTE) ROBY FLORES ([id number]) 1935 M Date Time Provider Department 12/10/23 ELISE PAREDES During your visit today, we recorded the following information about you: [facility]/10/2023 2:21 PM Signed [facility] Ambulatory Pharmacy Anticoagulation Clinic Anticoagulation Episode Summary Anticoagulation Care Providers Provider Role Specialty Phone number Stas Mora MD Referring Family Medicine [phone] Roby Martinezenter is a 88 year old year old male patient being evaluated today for a Lab INR. Patient is currently on the following 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(s) Warfarin. Labs PT INR (no units) Date Value 05/19/2022 1.7 05/15/2021 2.3 04/17/2021 1.9 INR (no units) Date Value 12/09/2023 1.9 11/26/2023 1.5 11/18/2023 1.8 Hemoglobin (g/dL) Date Value 06/04/2023 10.0 Hematocrit (%) Date Value 06/04/2023 34.9 Platelet Count (k/uL) Date Value 06/04/2023 297 Creatinine (mg/dL) Date Value 06/03/2023 0.81 08/15/2022 0.89 02/21/2022 0.85 03/13/2021 0.80 08/28/2020 0.83 Bilirubin, Total (mg/dL) Date Value 06/03/2023 0.6 03/13/2021 0.5 ALT (U/L) Date Value 06/03/2023 13 03/13/2021 24 AST (U/L) Date Value 06/03/2023 21 03/13/2021 24 CrCl cannot be calculated (Patient's most recent lab result is older than the maximum 180 days allowed.). 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 Paroxysmal atrial fibrillation (hcc) Anticoagulation Episode Summary Current INR goal: 2.0-3.0 Assessment: INR result of 1.9 is SUBtherapeutic due to: unknown cause - did not speak to patient Plan: Current Warfarin Dosing As of 12/10/2023 Full warfarin instructions: 2.5 mg every Sun; 3 mg all other days Left voice message for Gabby at [phone] (home) Advised patient to increase total weekly regimen Next lab INR check scheduled on 12/24/2023 Elise Paredes [facility] Clinical Pharmacist, Pharmacy Anticoagulation Clinic Pharmacy Anticoagulation Clinic Pager: [phone]. Allergies As of Date: 12/10/2023 (No Known Allergies) Date Reviewed: 11/26/2023 Reviewed by: Rosie Cruz MA - Fully Assessed Reason for Visit: Anticoagulation Telephone Fu [148] Cmt: Lab INR Primary Visit Diagnosis:[facility] current us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 [Z79.01] Other Visit Diagnosis:Paroxysmal atrial fibrillation (HCC) [I48.0] Prescriptions as of 12/10/2023 - lisinopril (ZESTRIL) 10 mg tablet Take 1 tablet by mouth once daily. - donepezil (ARICEPT) 5 mg tablet Take 1 tablet by mouth daily at bedtime. - warfarin (COUMADIN) 1 mg tablet Take 1 tablet by mouth once daily. - furosemide (LASIX) 20 mg tablet Take 1 tablet by mouth once daily as needed. - warfarin (COUMADIN) 1 mg tablet Take 1 tablet by mouth daily as directed. - tamsulosin (FLOMAX) 0.4 mg Take 1 capsule by mouth daily at bedtime. - warfarin (COUMADIN) 2.5 mg tablet Take 2.5 mg everyday except 3.75 mg on Fridays - atorvastatin (LIPITOR) 40 mg tablet Take 1 tablet by mouth daily at bedtime. - aspirin 81 mg chewable tablet Take 1 tablet by mouth once daily. 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 [Z79.01]09/22/2016 Paroxysmal atrial fibrillation (HCC) [I48.0] 09/22/2016 Hyperlipidemia [E78.5] 08/26/2022 Encounter Status:Closed by ELISE PAREDES on 12/10/23 Normal [facility] PT panel Coag (PPP)on 2023 INR Coag (PPP) [Relative time] 1.9 {INR} High 0.9-1.3 [facility] Comment on above: Order Comment: Speci men Type: BLOOD SPECIMENOrdering Facility: [facility] Address: [address] [place] [address] Result Comment: Mary min K Antagonist (VKA) Therapeutic Range: INR 2 to 3 (Target INR of 2.5) Note: For patients treated with VKA drugs, such as warfarin, the [place] [employer] 2012 Guideline recommends [...] Chest 2012, 141:7S-47S Avel RA, et al. [facility] 2017, 70: 252-289 Performed By: #### 3 4528-0 ####[facility] [id number] [place] [address] [place] PT Coag (PPP) [Time] 18.8 s High 9.7-13.0 [facility] Comment on above: Order Comment: Speci men Type: BLOOD SPECIMENOrdering Facility: [facility] Address: [address] [place] [address] Performed By: #### 3 4528-0 ####[facility] [id number] [address] [place] CNOVon 11-26-2023 CNOV Office Visit (FAMPWS ) SANDRAROBY Garcia ([id number]) 1935 M Date Time Provider Department 11/26/23 10:40 AM STAS MORA FAMPWS During your visit today, we recorded the following information about you: Pulse Respiration Blood pressure Weight 60/minute 18/minute 144/80 71.4 kg Stas Mora MD 11/26/2023 11:02 AM Signed Chief Complaint Patient presents with: F/U 6 Month HPI Roby Garcia Sandra is a 88 year old male who presents here today for 6 month follow up. Pt here today for routine follow up. Here today with his . Denies doing too much over this summer due to trouble with walking and being 88 years old. Pt stated he was 81. GI/Uro - Denies any stomach or bowel issues. No longer having issues controlling his bowels, previously was. Does have urinary urgency with accidents frequently per . Previously was taking Flomax 0.4 mg daily, but has not taken this over the past few months. Unsure why pt quit medication. Unsure if any noticeable difference, due to still having accidents. INR and coumadin dosage managed by Pharmacists. Is supposed to have this checked today. HTN: Denies any chest pains, dizziness, or sob. Checking BP at home, overall doing okay. Taking Lisinopril 10 mg daily. Pt had elevated reading today in office, but has not taken his medication yet today. Edema - PRN use of Lasix 20 mg for lower leg edema. Stable at this time. Lipid/CVA: Does try to watch his diet, appetite overall okay but doesn't eat as much as he used too. No real exercise, but does do some things around the home. Has lost almost 10 lbs since last visit, but pt feels this was misread at that visit. Previously was taking Lipitor 40 mg daily, but has not taken this for the past few months, pt unsure why he stopped. Takes ASA 81 mg daily. Still some speech difficulties and right side weakness from probable CVA . Uses cane to get around. No falls in the past year. States he has trouble with walking, feels this is related to his knee's. Denies any pain or falls, but feels it slows him down. Memory - Taking Aricept 5 mg once daily, this was started at last visit. Denies any issues with medication or side effects. reports memory not doing well. Patient just chuckles when asked. Pt reports struggling with names and dates. No longer driving. He stated he was 81 years old. states he does handle his medication, but puts out his medication for him to take. HM - Declines RSV vaccine. Will receive Flu vaccine through Pharmacy with . Will check with local Pharmacy for updated Covid vaccine. Past medical history, appointments, medications, allergies reviewed. Previous Medical History PAST MEDICAL HISTORY No date: Coronary atherosclerosis of unspecified type of vessel, pauma or graft Comment: Coronary artery disease No date: Other and unspecified hyperlipidemia No date: Unspecified essential hypertension Comment: Essential hypertension Previous Surgical History PAST SURGICAL HISTORY No date: APPENDECTOMY 2005 last time: PERC TRANSL COR ANGIO Comment: Percutaneous Transluminal Coronary Angio Status 3 procedures Family History FAMILY HISTORY Problem Relation Age of Onset Arthritis Mother Alcohol/Drug Father Stroke Father Cancer Brother 50 Stomach cancer Patient Allergies ALLERGIES No Known Allergies Current Medications Current Outpatient Medications on File Prior to Visit Medication Sig warfarin (COUMADIN) 1 mg tablet Take 1 tablet by mouth once daily. furosemide (LASIX) 20 mg tablet Take 1 tablet by mouth once daily as needed. donepezil (ARICEPT) 5 mg tablet Take 1 tablet by mouth daily at bedtime. warfarin (COUMADIN) 1 mg tablet Take 1 tablet by mouth daily as directed. tamsulosin (FLOMAX) 0.4 mg Take 1 capsule by mouth daily at bedtime. warfarin (COUMADIN) 2.5 mg tablet Take 2.5 mg everyday except 3.75 mg on Fridays atorvastatin (LIPITOR) 40 mg tablet Take 1 tablet by mouth daily at bedtime. aspirin 81 mg chewable tablet Take 1 tablet by mouth once daily. lisinopril (ZESTRIL) 10 mg tablet Take 1 tablet by mouth once daily. No current facility-administered medications on file prior to visit. Social History Social History Tobacco Use Smoking status: Former Smokeless tobacco: Never Tobacco comments: 30 yaers ago Substance Use Topics Alcohol use: No Drug use: No EXAM: BP 144/80 Pulse 60 Resp 18 Wt 71.4 kg (157 lb 6.5 oz) BMI 21.95 kg/m? General Appearance: Well appearing, alert, in no acute distress, well-hydrated, well nourished. Using a cane to ambulate. Lungs: Lungs clear to auscultation. No wheezing, rhonchi, rales.. Heart: RRR without murmur, gallop, or rubs. No ectopy. Health Maintenance List RSV Vaccine(1 - 1-dose 60+ series) Never done Covid-19 Vaccine(2022- season) due on 11/22/2023 Influ (more content not included)... Normal [facility] Gene 11-26-2023 [facility] ROBY FLOR[facility] ([id number]) 1935 M Date Time Provider Department 11/26/23 ELISE PAREDES During your visit today, we recorded the following information about you: [facility] 11/26/2023 4:23 PM Signed [facility] Pharmacy Anticoagulation Clinic Anticoagulation Episode Summary Anticoagulation Care Providers Provider Role Specialty Phone number Stas Mora MD Referring Family Medicine [phone] Roby Flores is a 88 year old year old male patient being evaluated today for a Lab INR. Patient is currently on the following 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(s) Warfarin. Labs PT INR (no units) Date Value 05/19/2022 1.7 05/15/2021 2.3 04/17/2021 1.9 INR (no units) Date Value 11/26/2023 1.5 11/18/2023 1.8 10/14/2023 2.3 Hemoglobin (g/dL) Date Value 06/04/2023 10.0 Hematocrit (%) Date Value 06/04/2023 34.9 Platelet Count (k/uL) Date Value 06/04/2023 297 Creatinine (mg/dL) Date Value 06/03/2023 0.81 08/15/2022 0.89 02/21/2022 0.85 03/13/2021 0.80 08/28/2020 0.83 Bilirubin, Total (mg/dL) Date Value 06/03/2023 0.6 03/13/2021 0.5 ALT (U/L) Date Value 06/03/2023 13 03/13/2021 24 AST (U/L) Date Value 06/03/2023 21 03/13/2021 24 CrCl cannot be calculated (Unknown ideal weight.). ALLERGIES No Known Allergies 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: [facility] current us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 Paroxysmal atrial fibrillation (hcc) Anticoagulation Episode Summary Current INR goal: 2.0-3.0 Assessment: INR result of 1.5 is SUBtherapeutic due to: unknown cause - did not speak to patient Plan: Current Warfarin Dosing As of 11/26/2023 Full warfarin instructions: 11/25: 5 mg; Otherwise 3 mg every Mon, Wed, Sat; 2.5 mg all other days Left voice message Advised patient to 5 mg x1(11/25) and call PAC to discuss further Elise Paredes [facility] Clinical Pharmacist, Pharmacy Anticoagulation Clinic Pharmacy Anticoagulation Clinic Pager: [phone]. Satish (Fried Cake MakerParmjit Berry 11/26/2023 4:30 PM Signed Patient's spouse called regarding message. Patient typically takes warfarin in the morning but did not take any today. Patient's spouse doesn't understand why its low all the sudden. Denies changes in medication/ diet or missed doses. Call transferred to [facility] Parmjit Covarrubias, Process Camera Operator (pain management specialist) Pharmacy Anticoagulation Clinic Elise Paredes [facility] 11/26/2023 4:32 PM Signed [facility] Ambulatory Pharmacy Anticoagulation Clinic Anticoagulation Episode Summary Anticoagulation Care Providers Provider Role Specialty Phone number Stas Mora MD Referring Family Medicine [phone] Roby Flores is a 88 year old year old male patient being evaluated today for a Lab INR. Patient is currently on the following 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(s) Warfarin. Labs PT INR (no units) Date Value 05/19/2022 1.7 05/15/2021 2.3 04/17/2021 1.9 INR (no units) Date Value 11/26/2023 1.5 11/18/2023 1.8 10/14/2023 2.3 Hemoglobin (g/dL) Date Value 06/04/2023 10.0 Hematocrit (%) Date Value 06/04/2023 34.9 Platelet Count (k/uL) Date Value 06/04/2023 297 Creatinine (mg/dL) Date Value 06/03/2023 0.81 08/15/2022 0.89 02/21/2022 0.85 03/13/2021 0.80 08/28/2020 0.83 Bilirubin, Total (mg/dL) Date Value 06/03/2023 0.6 03/13/2021 0.5 ALT (U/L) Date Value 06/03/2023 13 03/13/2021 24 AST (U/L) Date Value 06/03/2023 21 03/13/2021 24 CrCl cannot be calculated (Unknown ideal weight.). 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 Paroxysmal atrial fibrillation (hcc) Anticoagulation Episode Summary Current INR goal: 2.0-3.0 Assessment: INR result of 1.5 is SUBtherapeutic due to: No obvious cause (patient denies liver, green tea, new herbal/nutritional supplements - such as Boost, Ensure, an increase in vit K foods and/or V8 type juices, any changes in warfarin tablet, or missed doses) Plan: Current Warfarin Dosing As of 11/26/2023 Full warfarin instructions: 11/25: 5 mg; Otherwise 2.5 mg every Thu, Thu, Thu; 3 mg all other days Called and spoke to patient/caregiver Advised patient to increase dose for 1 day and increase total weekly regimen Next lab INR check scheduled on 12/10/2023 Patient's caregiver verbalizes understanding of the plan. Patient denies need for refills. Elise Paredes [facility] Clinical Pharmacist, Pharmacy Anticoagulation Clinic Pharmacy Anticoagulation Clinic Pager: [phone]. Allergies As of Date: 11/26/2023 (No Known Allergies) Date Reviewed: 11/26/2023 Reviewed by: Rosie Cruz MA - Fully Assessed Reason for Visit: Anticoagulation Telephone Fu [148] Cmt: Lab INR Primary Visit Diagnosis: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 [Z79.01] (more content not included)... Normal [facility] PT panel Coag (PPP)on 2023 INR Coag (PPP) [Relative time] 1.5 {INR} High 0.9-1.3 [facility] Comment on above: Order Comment: Speci men Type: BLOOD SPECIMENOrdering Facility: [facility] Address: [address] [place] [address] Result Comment: Mary min K Antagonist (VKA) Therapeutic Range: INR 2 to 3 (Target INR of 2.5) Note: For patients treated with VKA drugs, such as warfarin, the [place] [employer] 2012 Guideline recommends [...] Chest 2012, 141:7S-47S Avel RA, et al. [facility] 2017, 70: 252-289 Performed By: #### 3 4528-0 ####[facility] [id number] [place] [address] [place] PT Coag (PPP) [Time] 15.1 s High 9.7-13.0 [facility] Comment on above: Order Comment: Speci men Type: BLOOD SPECIMENOrdering Facility: [facility] Address: [address] [place] [address] Performed By: #### 3 4528-0 ####[facility] [id number] [address] [place] Gene 11-18-2023 CNPN Telephone (SHAY) ROBY FLORES ([id number]) 1935 M Date Time Provider Department 11/18/23 CORETTA JALLOH During your visit today, we recorded the following information about you: Coretta Jalloh RPh 11/18/2023 4:37 PM Signed [facility] Ambulatory Pharmacy Anticoagulation Clinic Anticoagulation Episode Summary Anticoagulation Care Providers Provider Role Specialty Phone number Stas Mora MD Referring Family Medicine [phone] Roby Flores is a 88 year old year old male patient being evaluated today for a Lab INR. Patient is currently on the following 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(s) Warfarin. Labs PT INR (no units) Date Value 05/19/2022 1.7 05/15/2021 2.3 04/17/2021 1.9 INR (no units) Date Value 11/18/2023 1.8 10/14/2023 2.3 09/16/2023 2.3 Hemoglobin (g/dL) Date Value 06/04/2023 10.0 Hematocrit (%) Date Value 06/04/2023 34.9 Platelet Count (k/uL) Date Value 06/04/2023 297 Creatinine (mg/dL) Date Value 06/03/2023 0.81 08/15/2022 0.89 02/21/2022 0.85 03/13/2021 0.80 08/28/2020 0.83 Bilirubin, Total (mg/dL) Date Value 06/03/2023 0.6 03/13/2021 0.5 ALT (U/L) Date Value 06/03/2023 13 03/13/2021 24 AST (U/L) Date Value 06/03/2023 21 03/13/2021 24 CrCl cannot be calculated (Unknown ideal weight.). ALLERGIES No Known Allergies 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: [facility] current us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 Paroxysmal atrial fibrillation (hcc) Anticoagulation Episode Summary Current INR goal: 2.0-3.0 Assessment: INR result of 1.8 is SUBtherapeutic due to: Increased vitamin k intake recently. Plan: Current Warfarin Dosing As of 11/18/2023 Full warfarin instructions: 3 mg every Mon, Wed, Sat; 2.5 mg all other days Called and spoke to patient/caregiver Advised patient to continue current weekly dose as noted above Next lab INR check scheduled on 12/02/2023 Patient's caregiver verbalizes understanding of the plan. Patient denies need for refills. Coretta Jalloh Formerly [facility] Clinical Pharmacist, Pharmacy Anticoagulation Clinic Pharmacy Anticoagulation Clinic Pager: [phone]. Allergies As of Date: 11/18/2023 (No Known Allergies) Date Reviewed: 09/15/2023 Reviewed by: Rosie Cruz MA - Fully Assessed Reason for Visit: Anticoagulation Telephone Fu [148] Cmt: Home INR Primary Visit Diagnosis:[facility] current us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 [Z79.01] Other Visit Diagnosis:Paroxysmal atrial fibrillation (HCC) [I48.0] Prescriptions as of 11/18/2023 - warfarin (COUMADIN) 1 mg tablet Take 1 tablet by mouth once daily. - furosemide (LASIX) 20 mg tablet Take 1 tablet by mouth once daily as needed. - donepezil (ARICEPT) 5 mg tablet Take 1 tablet by mouth daily at bedtime. - warfarin (COUMADIN) 1 mg tablet Take 1 tablet by mouth daily as directed. - tamsulosin (FLOMAX) 0.4 mg Take 1 capsule by mouth daily at bedtime. - warfarin (COUMADIN) 2.5 mg tablet Take 2.5 mg everyday except 3.75 mg on Fridays - atorvastatin (LIPITOR) 40 mg tablet Take 1 tablet by mouth daily at bedtime. - aspirin 81 mg chewable tablet Take 1 tablet by mouth once daily. - lisinopril (ZESTRIL) 10 mg tablet Take 1 tablet by mouth once daily. 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 [Z79.01]09/22/2016 Paroxysmal atrial fibrillation (HCC) [I48.0] 09/22/2016 Hyperlipidemia [E78.5] 08/26/2022 Encounter Status:Closed by CORETTA JALLOH on 11/18/23 Normal [facility] PT panel Coag (PPP)on 2023 INR Coag (PPP) [Relative time] 1.8 {INR} High 0.9-1.3 [facility] Comment on above: Order Comment: Speci men Type: BLOOD SPECIMENOrdering Facility: [facility] Address: [address] [place] [address] Result Comment: Mary min K Antagonist (VKA) Therapeutic Range: INR 2 to 3 (Target INR of 2.5) Note: For patients treated with VKA drugs, such as warfarin, the [place] [employer] 2012 Guideline recommends [...] Chest 2012, 141:7S-47S Avel RA, et al. JAC 2017, 70: 252-289 Performed By: #### 3 4528-0 ####[facility] [id number] [place] [address] [place] PT Coag (PPP) [Time] 18.6 s High 9.7-13.0 [facility] Comment on above: Order Comment: Speci men Type: BLOOD SPECIMENOrdering Facility: [facility] Address: [address] [place] [address] Performed By: #### 3 4528-0 ####[facility] [id number] [place] [address] [place] CNPMarizol 10-14-2023 CNPN Telephone (PHAMTE) ROBY FLORES ([id number]) 1935 M Date Time Provider Department 10/14/23 CORETTA JALLOH During your visit today, we recorded the following information about you: Coretta Jalloh RPh 10/14/2023 4:24 PM Signed [facility] Pharmacy Anticoagulation Clinic Anticoagulation Episode Summary Anticoagulation Care Providers Provider Role Specialty Phone number Stas Mora MD Referring Family Medicine [phone] Roby Flores is a 88 year old year old male patient being evaluated today for a Lab INR. Patient is currently on the following 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(s) Warfarin. Labs PT INR (no units) Date Value 05/19/2022 1.7 05/15/2021 2.3 04/17/2021 1.9 INR (no units) Date Value 10/14/2023 2.3 09/16/2023 2.3 09/02/2023 2.4 Hemoglobin (g/dL) Date Value 06/04/2023 10.0 Hematocrit (%) Date Value 06/04/2023 34.9 Platelet Count (k/uL) Date Value 06/04/2023 297 Creatinine (mg/dL) Date Value 06/03/2023 0.81 08/15/2022 0.89 02/21/2022 0.85 03/13/2021 0.80 08/28/2020 0.83 Bilirubin, Total (mg/dL) Date Value 06/03/2023 0.6 03/13/2021 0.5 ALT (U/L) Date Value 06/03/2023 13 03/13/2021 24 AST (U/L) Date Value 06/03/2023 21 03/13/2021 24 CrCl cannot be calculated (Unknown ideal weight.). 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 Paroxysmal atrial fibrillation (hcc) Anticoagulation Episode Summary Current INR goal: 2.0-3.0 Assessment: INR result of 2.3 is therapeutic Plan: Current Warfarin Dosing As of 10/14/2023 Full warfarin instructions: 3 mg every Mon, Wed, Sat; 2.5 mg all other days Called and spoke to patient/caregiver Advised patient to continue current weekly dose as noted above Next lab INR check scheduled on 11/11/2023 Patient's caregiver - Maria Guadalupe, verbalizes understanding of the plan. Patient denies need for refills. Coretta Jalloh Formerly [facility] Clinical Pharmacist, Pharmacy Anticoagulation Clinic Pharmacy Anticoagulation Clinic Pager: [phone]. Coretta Jalloh RPh 11/11/2023 2:23 PM Signed Patient was due to test INR today at the lab -will continue to monitor for results. Coretta Jalloh PharmD Pharmacy Anticoagulation Clinic Allergies As of Date: 10/14/2023 (No Known Allergies) Date Reviewed: 09/15/2023 Reviewed by: Rosie Cruz MA - Fully Assessed Reason for Visit: Anticoagulation Telephone Fu [148] Cmt: Home INR results Primary Visit Diagnosis:[facility] current us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 [Z79.01] Other Visit Diagnosis:Paroxysmal atrial fibrillation (HCC) [I48.0] Prescriptions as of 11/18/2023 - warfarin (COUMADIN) 1 mg tablet Take 1 tablet by mouth once daily. - furosemide (LASIX) 20 mg tablet Take 1 tablet by mouth once daily as needed. - donepezil (ARICEPT) 5 mg tablet Take 1 tablet by mouth daily at bedtime. - warfarin (COUMADIN) 1 mg tablet Take 1 tablet by mouth daily as directed. - tamsulosin (FLOMAX) 0.4 mg Take 1 capsule by mouth daily at bedtime. - warfarin (COUMADIN) 2.5 mg tablet Take 2.5 mg everyday except 3.75 mg on Fridays - atorvastatin (LIPITOR) 40 mg tablet Take 1 tablet by mouth daily at bedtime. - aspirin 81 mg chewable tablet Take 1 tablet by mouth once daily. - lisinopril (ZESTRIL) 10 mg tablet Take 1 tablet by mouth once daily. 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 [Z79.01]09/22/2016 Paroxysmal atrial fibrillation (HCC) [I48.0] 09/22/2016 Hyperlipidemia [E78.5] 08/26/2022 Encounter Status:Closed by CORETTA JALLOH on 10/14/23 Normal [facility] PT panel Coag (PPP)on 2023 INR Coag (PPP) [Relative time] 2.3 {INR} High 0.9-1.3 [facility] Comment on above: Order Comment: Stone parmar Type: BLOOD SPECIMENOrdering Facility: [facility] Address: [address] [place] [address] Result Comment: Mary min K Antagonist (VKA) Therapeutic Range: INR 2 to 3 (Target INR of 2.5) Note: For patients treated with VKA drugs, such as warfarin, the [place] [employer] 2012 Guideline recommends [...] Chest 2012, 141:7S-47S Avel RA, et al. [facility] 2017, 70: 252-289 Performed By: #### 3 4528-0 ####[facility] [id number] [facility] [id number] [address] [place] PT Coag (PPP) [Time] 23.0 s High 9.7-13.0 [facility] Comment on above: Order Comment: Stone parmar Type: BLOOD SPECIMENOrdering Facility: [facility] Address: [address] [place] [address] Performed By: #### 3 4528-0 ####[facility] [id number] [address] [address] [place] Gene 09-16-2023 CNPN Telephone (PHAMTE) SANDRAALYSSAROBY Radha ([id number]) 1935 M Date Time Provider Department 09/16/23 COLLEEN STOUT PHAMTE During your visit today, we recorded the following information about you: Colleen Stout RPh 09/16/2023 4:23 PM Addendum [facility] Ambulatory Pharmacy Anticoagulation Clinic Anticoagulation Episode Summary Anticoagulation Care Providers Provider Role Specialty Phone number Stas Mora MD Referring Family Medicine [phone] Roby Radha Flores is a 88 year old year old male patient being evaluated today for a Telemanagement visit. Patient is currently on the following 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(s) Warfarin. Labs PT INR (no units) Date Value 05/19/2022 1.7 05/15/2021 2.3 04/17/2021 1.9 INR (no units) Date Value 09/16/2023 2.3 09/02/2023 2.4 08/26/2023 2.0 Hemoglobin (g/dL) Date Value 06/04/2023 10.0 Hematocrit (%) Date Value 06/04/2023 34.9 Platelet Count (k/uL) Date Value 06/04/2023 297 Creatinine (mg/dL) Date Value 06/03/2023 0.81 08/15/2022 0.89 02/21/2022 0.85 03/13/2021 0.80 08/28/2020 0.83 Bilirubin, Total (mg/dL) Date Value 06/03/2023 0.6 03/13/2021 0.5 ALT (U/L) Date Value 06/03/2023 13 03/13/2021 24 AST (U/L) Date Value 06/03/2023 21 03/13/2021 24 CrCl cannot be calculated (Unknown ideal weight.). ALLERGIES No Known Allergies 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: Anticoagulation Episode Summary Current INR goal: 2.0-3.0 Assessment: INR result of 2.3 is therapeutic 09/14-seen by Dr. Mora for swelling of both legs. Started on Lasix prn. Plan: Current Warfarin Dosing As of 09/16/2023 Full warfarin instructions: 3 mg every Mon, Wed, Sat; 2.5 mg all other days Called and spoke to patient/caregiver Advised patient to continue current weekly dose as noted above Next lab INR check scheduled on 10/14/2023 Patient's caregiver verbalizes understanding of the plan. Patient denies need for refills. Colleen tSout Formerly [facility] Clinical Pharmacist, Pharmacy Anticoagulation Clinic Pharmacy Anticoagulation Clinic Pager: [phone]. Allergies As of Date: 09/16/2023 (No Known Allergies) Date Reviewed: 09/15/2023 Reviewed by: Rosie Cruz MA - Fully Assessed Reason for Visit: Anticoagulation Telephone Fu [148] Prescriptions as of 09/16/2023 - furosemide (LASIX) 20 mg tablet Take 1 tablet by mouth once daily as needed. - donepezil (ARICEPT) 5 mg tablet Take 1 tablet by mouth daily at bedtime. - warfarin (COUMADIN) 1 mg tablet Take 1 tablet by mouth daily as directed. - warfarin (COUMADIN) 1 mg tablet Take 1 tablet by mouth once daily. - tamsulosin (FLOMAX) 0.4 mg Take 1 capsule by mouth daily at bedtime. - warfarin (COUMADIN) 2.5 mg tablet Take 2.5 mg everyday except 3.75 mg on Fridays - atorvastatin (LIPITOR) 40 mg tablet Take 1 tablet by mouth daily at bedtime. - aspirin 81 mg chewable tablet Take 1 tablet by mouth once daily. - lisinopril (ZESTRIL) 10 mg tablet Take 1 tablet by mouth once daily. 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 [facility] current us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 [Z79.01]09/22/2016 Paroxysmal atrial fibrillation (HCC) [I48.0] 09/22/2016 Hyperlipidemia [E78.5] 08/26/2022 Encounter Status:Closed by COLLEEN STOUT on 09/16/23 Normal [facility] PT panel Coag (PPP)on 2023 INR Coag (PPP) [Relative time] 2.3 {INR} High 0.9-1.3 [facility] Comment on above: Order Comment: Stone parmar Type: BLOOD SPECIMENOrdering Facility: [facility] Address: [address] [place] [address] Result Comment: Mary min K Antagonist (VKA) Therapeutic Range: INR 2 to 3 (Target INR of 2.5) Note: For patients treated with VKA drugs, such as warfarin, the [place] [employer] 2012 Guideline recommends [...] Chest 2012, 141:7S-47S Avel RA, et al. [facility] 2017, 70: 252-289 Performed By: #### 3 4528-0 ####[facility] [id number] [place] [address] [place] PT Coag (PPP) [Time] 22.4 s High 9.7-13.0 [facility] Comment on above: Order Comment: Speci men Type: BLOOD SPECIMENOrdering Facility: [facility] Address: [address] [place] [address] Performed By: #### 3 4528-0 ####[facility] [id number] [address] [id number] [id number] [place] CNOVon 09-15-2023 CNOV Office Visit (FAMPWS ) ROBY FLORES ([id number]) 1935 M Date Time Provider Department 09/15/23 8:40 AM [facility] During your visit today, we recorded the following information about you: Pulse Respiration Blood pressure Weight 76/minute 18/minute 138/84 79.7 kg Stas Mora MD 09/15/2023 8:52 AM Signed Chief Complaint Patient presents with: Edema: B/L lower legs HPI Roby Flores is a 88 year old male who presents here today for swelling. Pt here today with his . Pt and concerned about bilateral leg swelling that has been ongoing intermittently. Not exactly sure how long this has been going on or what causes the swelling. At times the pain is very uncomfortable. Unable to tell what causes this, feels it may be worse later in the day into the evening. States yesterday was really bad. states that his socks were cutting into him due to the edema, possibly socks were too tight but unsure. Today they don't look too bad at all, denies having much swelling at all today. Swelling goes about half way up each calf, pitting edema >1/4 inch (6 mm) deep, rest and elevation only with partial decrease in swelling. Does not wear compression stockings. No redness to legs, no pain, no fevers, no chest pains, SOB, dizziness. No hx of blood clots, cancer, heart failure, kidney disease, or liver failure. Past medical history, appointments, medications, allergies reviewed. Previous Medical History PAST MEDICAL HISTORY Diagnosis Date Coronary atherosclerosis of unspecified type of vessel, pauma or graft Coronary artery disease Other and unspecified hyperlipidemia Unspecified essential hypertension Essential hypertension Previous Surgical History PAST SURGICAL HISTORY Procedure Laterality Date APPENDECTOMY PERC TRANSL COR ANGIO 2005 last time Percutaneous Transluminal Coronary Angio Status 3 procedures Family History FAMILY HISTORY Problem Relation Age of Onset Arthritis Mother Alcohol/Drug Father Stroke Father Cancer Brother 50 Stomach cancer Patient Allergies ALLERGIES No Known Allergies Current Medications Current Outpatient Medications on File Prior to Visit Medication Sig donepezil (ARICEPT) 5 mg tablet Take 1 tablet by mouth daily at bedtime. warfarin (COUMADIN) 1 mg tablet Take 1 tablet by mouth daily as directed. warfarin (COUMADIN) 1 mg tablet Take 1 tablet by mouth once daily. tamsulosin (FLOMAX) 0.4 mg Take 1 capsule by mouth daily at bedtime. warfarin (COUMADIN) 2.5 mg tablet Take 2.5 mg everyday except 3.75 mg on Fridays atorvastatin (LIPITOR) 40 mg tablet Take 1 tablet by mouth daily at bedtime. aspirin 81 mg chewable tablet Take 1 tablet by mouth once daily. lisinopril (ZESTRIL) 10 mg tablet Take 1 tablet by mouth once daily. No current facility-administered medications on file prior to visit. Social History Social History Tobacco Use Smoking status: Former Smokeless tobacco: Never Tobacco comments: 30 yaers ago Substance Use Topics Alcohol use: No Drug use: No EXAM: BP 138/84 (BP Site: Left Arm, BP Position: Sitting, BP Cuff Size: Regular Adult) Pulse 76 Resp 18 Wt 79.7 kg (175 lb 12.8 oz) BMI 24.52 kg/m? General Appearance: Well appearing, alert, in no acute distress, well-hydrated, well nourished and using a cane. Lungs: Lungs clear to auscultation. No wheezing, rhonchi, rales.. Heart: RRR without murmur, gallop, or rubs. No ectopy. Extremities: Edema: Slight edema noted on today's exam bilaterally. Sock line noted. Health Maintenance List RSV Vaccine(1 - 1-dose 60+ series) Never done Covid-19 Vaccine() due on 05/13/2023 LDL Cholesterol due on 06/02/2024 Diabetes Screening due on 06/02/2026 DTaP,Tdap,Td Vaccine(2 - Td or Tdap) due on 02/27/2031 Influenza Vaccine Completed Advance Directive Discussion Completed Behavioral Health Screening Completed Shingrix Vaccine Completed Pneumococcal Vaccine: 65+ Completed Data reviewed None ASSESSMENT/PLAN: 1. Edema of both lower legs - ICD9: 782.3, ICD10: R60.0 - Start low dosage of Lasix 20 mg once daily as needed. Follow up as scheduled in Nov. I agree with the Chief Complaint, ROS, and Past Histories independently gathered by the clinical patient support tech and the remaining scribed note accurately describes my personal service to the patient. Medical Decision Making: Problems: Low: Acute, uncomplicated illness or injury Risk: Moderate: Drug management Medical Decision Making Level: 3 - Low Stas Mora MD The documentation for this note was completed by Rosie Cruz MA acting as scribe for Stas Mora MD. September 15, 2023 8:45 AM. MARIA E Arellano Rilee, MA 09/15/2023 8:48 AM Signed Starting Lasix (Furosemide) 20 mg once daily as needed. You can use the medication (more content not included)... [facility] (PHAMTE) ROBY FLORES ([id number]) 1935 M Date Time Provider Department 09/02/23 CORETTA JALLOH PHAJENNIFERE During your visit today, we recorded the following information about you: Coretta Jalloh RPh 09/02/2023 3:21 PM Signed [facility] Ambulatory Pharmacy Anticoagulation Clinic Anticoagulation Episode Summary Anticoagulation Care Providers Provider Role Specialty Phone number Stas Mora MD Referring Family Medicine [phone] Roby Garcia Sandra is a 88 year old year old male patient being evaluated today for a Lab INR. Patient is currently on the following 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(s) Warfarin. Labs PT INR (no units) Date Value 05/19/2022 1.7 05/15/2021 2.3 04/17/2021 1.9 INR (no units) Date Value 09/02/2023 2.4 08/26/2023 2.0 08/19/2023 1.9 Hemoglobin (g/dL) Date Value 06/04/2023 10.0 Hematocrit (%) Date Value 06/04/2023 34.9 Platelet Count (k/uL) Date Value 06/04/2023 297 Creatinine (mg/dL) Date Value 06/03/2023 0.81 08/15/2022 0.89 02/21/2022 0.85 03/13/2021 0.80 08/28/2020 0.83 Bilirubin, Total (mg/dL) Date Value 06/03/2023 0.6 03/13/2021 0.5 ALT (U/L) Date Value 06/03/2023 13 03/13/2021 24 AST (U/L) Date Value 06/03/2023 21 03/13/2021 24 CrCl cannot be calculated (Unknown ideal weight.). ALLERGIES No Known Allergies 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: [facility] current us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 Paroxysmal atrial fibrillation (hcc) Anticoagulation Episode Summary Current INR goal: 2.0-3.0 Assessment: INR result of 2.4 is therapeutic following very slight dose increase. Two therapeutic results in a row! Plan: Current Warfarin Dosing As of 09/02/2023 Full warfarin instructions: 3 mg every Mon, Wed, Sat; 2.5 mg all other days Called and spoke to patient/caregiver Advised patient to continue current weekly dose as noted above Next lab INR check scheduled on 09/16/2023 Maria Guadalupe verbalizes understanding of the plan. Patient denies need for refills. Coretta Jalloh Formerly [facility] Clinical Pharmacist, Pharmacy Anticoagulation Clinic Pharmacy Anticoagulation Clinic Pager: [phone]. Allergies As of Date: 09/02/2023 (No Known Allergies) Date Reviewed: 08/14/2023 Reviewed by: Marta Palacio MA - Fully Assessed Reason for Visit: Anticoagulation Telephone Fu [148] Cmt: Lab INR results Primary Visit Diagnosis: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 [Z79.01] Other Visit Diagnosis:Paroxysmal atrial fibrillation (HCC) [I48.0] Prescriptions as of 09/16/2023 - furosemide (LASIX) 20 mg tablet Take 1 tablet by mouth once daily as needed. - donepezil (ARICEPT) 5 mg tablet Take 1 tablet by mouth daily at bedtime. - warfarin (COUMADIN) 1 mg tablet Take 1 tablet by mouth daily as directed. - warfarin (COUMADIN) 1 mg tablet Take 1 tablet by mouth once daily. - tamsulosin (FLOMAX) 0.4 mg Take 1 capsule by mouth daily at bedtime. - warfarin (COUMADIN) 2.5 mg tablet Take 2.5 mg everyday except 3.75 mg on Fridays - atorvastatin (LIPITOR) 40 mg tablet Take 1 tablet by mouth daily at bedtime. - aspirin 81 mg chewable tablet Take 1 tablet by mouth once daily. - lisinopril (ZESTRIL) 10 mg tablet Take 1 tablet by mouth once daily. 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 [Z79.01]09/22/2016 Paroxysmal atrial fibrillation (HCC) [I48.0] 09/22/2016 Hyperlipidemia [E78.5] 08/26/2022 Encounter Status:Closed by CORETTA JALLOH on 09/02/23 Normal [facility] PT panel Coag (PPP)on 2023 INR Coag (PPP) [Relative time] 2.4 {INR} High 0.9-1.3 [facility] Comment on above: Order Comment: Speci men Type: BLOOD SPECIMENOrdering Facility: [facility] Address: [address] [place] [address] Result Comment: Mary min K Antagonist (VKA) Therapeutic Range: INR 2 to 3 (Target INR of 2.5) Note: For patients treated with VKA drugs, such as warfarin, the [place] [employer] 2012 Guideline recommends [...] Chest 2012, 141:7S-47S Avel RA, et al. [facility] 2017, 70: 252-289 Performed By: #### 3 4528-0 ####[facility] [id number] [place] [address] [place] PT Coag (PPP) [Time] 24.0 s High 9.7-13.0 [facility] Comment on above: Order Comment: Speci men Type: BLOOD SPECIMENOrdering Facility: [facility] Address: [address] [place] [address] Performed By: #### 3 4528-0 ####[facility] [id number] [address] [place] Gene 08-26-2023 CNPN Telephone (TIAE) ROBY FLORES ([id number]) 1935 M Date Time Provider Department 08/26/23 CORETTA JALLOH During your visit today, we recorded the following information about you: Coretta Jalloh RPh 08/26/2023 5:07 PM Signed [facility] Ambulatory Pharmacy Anticoagulation Clinic Anticoagulation Episode Summary Anticoagulation Care Providers Provider Role Specialty Phone number Stas Mora MD Referring Family Medicine [phone] Roby Flores is a 88 year old year old male patient being evaluated today for a Lab INR. Patient is currently on the following 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(s) Warfarin. Labs PT INR (no units) Date Value 05/19/2022 1.7 05/15/2021 2.3 04/17/2021 1.9 INR (no units) Date Value 08/26/2023 2.0 08/19/2023 1.9 08/12/2023 1.4 Hemoglobin (g/dL) Date Value 06/04/2023 10.0 Hematocrit (%) Date Value 06/04/2023 34.9 Platelet Count (k/uL) Date Value 06/04/2023 297 Creatinine (mg/dL) Date Value 06/03/2023 0.81 08/15/2022 0.89 02/21/2022 0.85 03/13/2021 0.80 08/28/2020 0.83 Bilirubin, Total (mg/dL) Date Value 06/03/2023 0.6 03/13/2021 0.5 ALT (U/L) Date Value 06/03/2023 13 03/13/2021 24 AST (U/L) Date Value 06/03/2023 21 03/13/2021 24 CrCl cannot be calculated (Unknown ideal weight.). 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 Paroxysmal atrial fibrillation (hcc) Anticoagulation Episode Summary Current INR goal: 2.0-3.0 Assessment: INR result of 2.0 is therapeutic following recent dose increase. Plan: Current Warfarin Dosing As of 08/26/2023 Full warfarin instructions: 3 mg every Mon, Wed, Sat; 2.5 mg all other days Left voice message For Maria Guadalupe. Advised patient to increase total weekly regimen but a little more since INR is on the low end. Next lab INR check scheduled on 09/02/2023 Coretta Jalloh RPh Clinical Pharmacist, Pharmacy Anticoagulation Clinic Pharmacy Antico[facility] Pager: [phone]. Allergies As of Date: 08/26/2023 (No Known Allergies) Date Reviewed: 08/14/2023 Reviewed by: Marta Palacio MA - Fully Assessed Reason for Visit: Anticoagulation Telephone Fu [148] Cmt: Lab INR results Primary Visit Diagnosis: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 [Z79.01] Other Visit Diagnosis:Paroxysmal atrial fibrillation (HCC) [I48.0] Prescriptions as of 08/26/2023 - donepezil (ARICEPT) 5 mg tablet Take 1 tablet by mouth daily at bedtime. - warfarin (COUMADIN) 1 mg tablet Take 1 tablet by mouth daily as directed. - warfarin (COUMADIN) 1 mg tablet Take 1 tablet by mouth once daily. - tamsulosin (FLOMAX) 0.4 mg Take 1 capsule by mouth daily at bedtime. - warfarin (COUMADIN) 2.5 mg tablet Take 2.5 mg everyday except 3.75 mg on Fridays - atorvastatin (LIPITOR) 40 mg tablet Take 1 tablet by mouth daily at bedtime. - aspirin 81 mg chewable tablet Take 1 tablet by mouth once daily. - lisinopril (ZESTRIL) 10 mg tablet Take 1 tablet by mouth once daily. 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 [Z79.01]09/22/2016 Paroxysmal atrial fibrillation (HCC) [I48.0] 09/22/2016 Hyperlipidemia [E78.5] 08/26/2022 Encounter Status:Closed by CORETTA JALLOH on 08/26/23 Normal [facility] PT panel Coag (PPP)on 2023 INR Coag (PPP) [Relative time] 2.0 {INR} High 0.9-1.3 [facility] Comment on above: Order Comment: Speci men Type: BLOOD SPECIMENOrdering Facility: [facility] Address: [address] [place] [address] Result Comment: Mary min K Antagonist (VKA) Therapeutic Range: INR 2 to 3 (Target INR of 2.5) Note: For patients treated with VKA drugs, such as warfarin, the [place] [employer] 2012 Guideline recommends [...] Chest 2012, 141:7S-47S Avel RA, et al. [facility] 2017, 70: 252-289 Performed By: #### 3 4528-0 ####[facility] [id number] [place] [address] [place] PT Coag (PPP) [Time] 20.1 s High 9.7-13.0 [facility] Comment on above: Order Comment: Stone parmar Type: BLOOD SPECIMENOrdering Facility: [facility] Address: [address] [place] [address] Performed By: #### 3 4528-0 ####[facility] [id number] [place] [address] [place] Gene 08-19-2023 MICHELINE Telephone ([facility]) ROBY FLORES ([id number]) 1935 M Date Time Provider Department 08/19/23 CORETTA JALLOH During your visit today, we recorded the following information about you: GaelyaquelinCoretta [facility]ly [facility] 08/19/2023 5:13 PM Signed [facility] Pharmacy Anticoagulation Clinic Anticoagulation Episode Summary Anticoagulation Care Providers Provider Role Specialty Phone number Stas Mora MD Referring Family Medicine [phone] Roby Flores is a 88 year old year old male patient being evaluated today for a Telemanagement visit. Patient is currently on the following 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(s) Warfarin. Labs PT INR (no units) Date Value 05/19/2022 1.7 05/15/2021 2.3 04/17/2021 1.9 INR (no units) Date Value 08/19/2023 1.9 08/12/2023 1.4 08/05/2023 1.5 Hemoglobin (g/dL) Date Value 06/04/2023 10.0 Hematocrit (%) Date Value 06/04/2023 34.9 Platelet Count (k/uL) Date Value 06/04/2023 297 Creatinine (mg/dL) Date Value 06/03/2023 0.81 08/15/2022 0.89 02/21/2022 0.85 03/13/2021 0.80 08/28/2020 0.83 Bilirubin, Total (mg/dL) Date Value 06/03/2023 0.6 03/13/2021 0.5 ALT (U/L) Date Value 06/03/2023 13 03/13/2021 24 AST (U/L) Date Value 06/03/2023 21 03/13/2021 24 Estimated Creatinine Clearance: 65.5 mL/min (based on SCr of 0.81 mg/dL). ALLERGIES No Known Allergies 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: Anticoagulation Episode Summary Current INR goal: 2.0-3.0 Assessment: INR result of 1.9 is SUBtherapeutic due to: No obvious cause Plan: Current Warfarin Dosing As of 08/12/2023 Full warfarin instructions: 08/11: 3 mg; Otherwise 2.5 mg every day Called and spoke to patient/caregiver Advised patient to increase total weekly regimen Next lab INR check scheduled on 08/26/23 - will have a re-education tomorrow. We did send the new ed video but Marai Guadalupe said she still has to watch it. Patient's caregiver verbalizes understanding of the plan. Patient denies need for refills. Coretta Jalloh [facility] Clinical Pharmacist, Pharmacy Anticoagulation Clinic Pharmacy Anticoagulation Clinic Pager: [phone]. Coretta Jalloh RPh 08/21/2023 2:28 PM Signed This was done over the phone. INITIAL EDUCATION FORM Initial patient education included: 1. Reason for taking warfarin 2. How warfarin works 3. What the INR test is and frequency of testing 4. When to take warfarin and what to do if a dose is missed 5. Identifying tablet(s) and to notify the [facility] if there is a change in tablet color, shape, or markings - verified that he has 1mg and 2.5mg 6. Drug interactions (Rx, OTC, herbal) and importance of notifying the [facility] with any changes - sometimes tylenol for pain prn - maybe 2 tablets whenever he needs it 7. Potential duration of therapy 8. Signs/symptoms of bleeding and what to do if they occur 9. Precautionary measures to decrease trauma/bleeding - had several falls in the past but not recently. Last summer may have been the last one. 10. Signs/symptoms of thrombosis and what to do if they occur 11. Need to limit or avoid EtOH consumption - not more than 2 drinks at a time 12. Dietary considerations - he eats green beans or a couple salads per week. 13. Carrying identification 14. Importance of notifying healthcare provider and [facility] when hospitalizations occur and when another healthcare provider has asked them to stop/hold warfarin before any procedure 15. Importance of notifying all healthcare providers they are taking warfarin 16. Use of control measures if applicable 17. Emergency contact numbers given Pt has a pill box but Maria Guadalupe said he forgets that So she leaves it out daily. Advised her to watch the new video. He just started Aricept 5mg this past week. He just saw his PCP. He was diagnosed with moderate dementia. Increased his dose 2 days ago and he will follow up at the lab on 08/25. Coretta Jalloh, PharmD, CACP Pharmacy Anticoagulation Clinic Allergies As of Date: 08/19/2023 (No Known Allergies) Date Reviewed: 08/14/2023 Reviewed by: Marta Palacio MA - Fully Assessed Reason for Visit: Anticoagulation Telephone Fu [148] Cmt: Lab INR Primary Visit Diagnosis:[facility] current us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 [Z79.01] Other Visit Diagnosis:Paroxysmal atrial fibrillation (HCC) [I48.0] Prescriptions as of 08/21/2023 - donepezil (ARICEPT) 5 mg tablet Take 1 tablet by mouth daily at bedtime. - warfarin (COUMADIN) 1 mg tablet Take 1 tablet by mouth daily as directed. - warfarin (COUMADIN) 1 mg tablet Take 1 tablet by mouth once daily. - tamsulosin (FLOMAX) 0.4 mg Take 1 capsule by mouth daily at bedtime. - warfarin (COUMADIN) 2.5 mg tablet Take 2.5 mg everyday except 3.75 mg on Fridays - atorvastatin (LIPITOR) 40 mg tablet Take 1 tablet by mouth daily at bedtime. - aspirin 81 mg chewable t (more content not included)... Normal [facility] PT panel Coag (PPP)on 2023 INR Coag (PPP) [Relative time] 1.9 {INR} High 0.9-1.3 [facility] Comment on above: Order Comment: Speci men Type: BLOOD SPECIMENOrdering Facility: [facility] Address: [facility]note 3[facility] [place] [address] Result Comment: Mary min K Antagonist (VKA) Therapeutic Range: INR 2 to 3 (Target INR of 2.5) Note: For patients treated with VKA drugs, such as warfarin, the [place] [employer] 2012 Guideline recommends [...] Chest 2012, 141:7S-47S Avel RA, et al. J[facility] 2017, 70: 252-289 Performed By: #### 3 4528-0 ####[facility] [id number] [address] [place] PT Coag (PPP) [Time] 18.8 s High 9.7-13.0 [facility] Comment on above: Order Comment: Speci men Type: BLOOD SPECIMENOrdering Facility: [facility] Address: [address] [place] [address] Performed By: #### 3 4528-0 ####[facility] [id number] [place] [id number] [facility] CNOVon 08-14-2023 CNOV Office Visit ([facility]AMPWS ) ROBY FLORES ([id number]) 1935 M Date Time Provider Department 08/14/23 10:00 AM [facility] During your visit today, we recorded the following information about you: Pulse Respiration Blood pressure Weight 64/minute 14/minute 140/80 73.5 kg Stas Mora MD 08/14/2023 10:20 AM Signed Chief Complaint Patient presents with: memory issues HPI Roby Flores is a 88 year old male who presents here today for memory issues. Here with is . Pt and family concerned about pt memory. Pt thinks his memory is ok. states he is forgetting every day things, can't find items that are in their usual spots. He doesn't remember appts or times. He thinks things are happening that are not happening, thinks he is being sued by a tenriism and that he was given a letter about it, doesn't know who the rate clerk passenger is or where the tenriism is. states this is not true. He was looking for his brother who lives out of state, thought he was still staying with them, however he has not been up to [place] since Jan. No hallucinations. Is not leaving the home in the middle of the night. Sleeping a lot, more than normal. Does not do any driving or cooking. He knows who the President is and knows that the year is 2023. Is not forgetting who people are. Pt states he has dreams about paying bills but it hasn't happened and then he is paranoid and worried that he missed a payment and his credit is being ruined. He states he doesn't know what to believe. Behavioral Health Screening (Lower risk for depression) YARELIS-2 Score: 0 (Lower risk for anxiety) Recommendation: no further intervention at this time Past medical history, appointments, medications, allergies reviewed. Previous Medical History PAST MEDICAL HISTORY Diagnosis Date Coronary atherosclerosis of unspecified type of vessel, pauma or graft Coronary artery disease Other and unspecified hyperlipidemia Unspecified essential hypertension Essential hypertension Previous Surgical History PAST SURGICAL HISTORY Procedure Laterality Date APPENDECTOMY PERC TRANSL COR ANGIO 2005 last time Percutaneous Transluminal Coronary Angio Status 3 procedures Family History FAMILY HISTORY Problem Relation Age of Onset Arthritis Mother Alcohol/Drug Father Stroke Father Cancer Brother 50 Stomach cancer Patient Allergies ALLERGIES No Known Allergies Current Medications Current Outpatient Medications on File Prior to Visit Medication Sig warfarin (COUMADIN) 1 mg tablet Take 1 tablet by mouth daily as directed. warfarin (COUMADIN) 1 mg tablet Take 1 tablet by mouth once daily. tamsulosin (FLOMAX) 0.4 mg Take 1 capsule by mouth daily at bedtime. warfarin (COUMADIN) 2.5 mg tablet Take 2.5 mg everyday except 3.75 mg on Fridays atorvastatin (LIPITOR) 40 mg tablet Take 1 tablet by mouth daily at bedtime. aspirin 81 mg chewable tablet Take 1 tablet by mouth once daily. lisinopril (ZESTRIL) 10 mg tablet Take 1 tablet by mouth once daily. No current facility-administered medications on file prior to visit. Social History Social History Tobacco Use Smoking status: Former Smokeless tobacco: Never Tobacco comments: 30 yaers ago Substance Use Topics Alcohol use: No Drug use: No EXAM: BP 140/80 Pulse 64 Resp 14 Wt 73.5 kg (162 lb) BMI 22.59 kg/m? General Appearance: Well appearing, alert, in no acute distress, well-hydrated, well nourished.. Lungs: Lungs clear to auscultation. No wheezing, rhonchi, rales.. Heart: RRR without murmur, gallop, or rubs. No ectopy. Health Maintenance List RSV Vaccine(1 - 1-dose 60+ series) Never done Behavioral Health Screening Never done Covid-19 Vaccine( season) due on 05/13/2023 LDL Cholesterol due on 06/02/2024 Diabetes Screening due on 06/02/2026 DTaP,Tdap,Td Vaccine(2 - Td or Tdap) due on 02/27/2031 Influenza Vaccine Completed Advance Directive Discussion Completed Shingrix Vaccine Completed Pneumococcal Vaccine: 65+ Completed Data reviewed None ASSESSMENT/PLAN: 1. 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 I agree with the Chief Complaint, ROS, and Past Histories independently gathered by the clinical patient support tech and the remaining scribed note accurately describes my personal service to the patient. Medical Decision Making: Problems: Moderate: New problem with uncertain prognosis Risk: Moderate: Drug management Medical Decision Making Level: 4 - Moderate Stas Mora MD The documentation for this note was completed by Marta Palacio MA acting as scribe for Stas Mora MD. August 14, 2023 9:51 AM. Marta Palacio MA Allergies As o (more content not included)... [facility] ([facility]) ROBY FLORES ([id number]) 1935 M Date Time Provider Department 08/12/23 CORETTA JALLOH During your visit today, we recorded the following information about you: Coretta Jalloh RPh 08/12/2023 4:39 PM Signed [facility] Pharmacy Anticoagulation Clinic Anticoagulation Episode Summary Anticoagulation Care Providers Provider Role Specialty Phone number Stas Mora MD Referring Family Medicine [phone] Roby Flores is a 87 year old year old male patient being evaluated today for a Telemanagement visit. Patient is currently on the following 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(s) Warfarin. Labs PT INR (no units) Date Value 05/19/2022 1.7 05/15/2021 2.3 04/17/2021 1.9 INR (no units) Date Value 08/12/2023 1.4 08/05/2023 1.5 07/29/2023 1.3 Hemoglobin (g/dL) Date Value 06/04/2023 10.0 Hematocrit (%) Date Value 06/04/2023 34.9 Platelet Count (k/uL) Date Value 06/04/2023 297 Creatinine (mg/dL) Date Value 06/03/2023 0.81 08/15/2022 0.89 02/21/2022 0.85 03/13/2021 0.80 08/28/2020 0.83 Bilirubin, Total (mg/dL) Date Value 06/03/2023 0.6 03/13/2021 0.5 ALT (U/L) Date Value 06/03/2023 13 03/13/2021 24 AST (U/L) Date Value 06/03/2023 21 03/13/2021 24 Estimated Creatinine Clearance: 68.4 mL/min (based on SCr of 0.81 mg/dL). ALLERGIES No Known Allergies 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: [facility] current us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 Paroxysmal atrial fibrillation (hcc) Anticoagulation Episode Summary Current INR goal: 2.0-3.0 Assessment: INR result of 1.4 is SUBtherapeutic due to: No obvious cause despite recent dose increase. Will send in the new pt ed video and schedule time next week to talk a little more on warfarin re-education. Hopefully this will help in our relationship and his healthcare experience. Plan: Current Warfarin Dosing As of 08/12/2023 Full warfarin instructions: 08/11: 3 mg; Otherwise 2.5 mg every day Called and spoke to patient/caregiver Advised patient to increase total weekly regimen Next lab INR check scheduled on 08/19/2023 Maria Guadalupe verbalizes understanding of the plan. Patient denies need for refills. Coretta Jalloh [facility] Clinical Pharmacist, Pharmacy Anticoagulation Clinic Pharmacy Anticoagulation Clinic Pager: [phone]. Allergies As of Date: 08/12/2023 (No Known Allergies) Date Reviewed: 06/01/2023 Reviewed by: Marta Palacio MA - Fully Assessed Reason for Visit: Anticoagulation Telephone Fu [148] Cmt: Home INR results Primary Visit Diagnosis: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 [Z79.01] Other Visit Diagnosis:Paroxysmal atrial fibrillation (HCC) [I48.0] Prescriptions as of 08/12/2023 - warfarin (COUMADIN) 1 mg tablet Take 1 tablet by mouth daily as directed. - warfarin (COUMADIN) 1 mg tablet Take 1 tablet by mouth once daily. - tamsulosin (FLOMAX) 0.4 mg Take 1 capsule by mouth daily at bedtime. - warfarin (COUMADIN) 2.5 mg tablet Take 2.5 mg everyday except 3.75 mg on Fridays - atorvastatin (LIPITOR) 40 mg tablet Take 1 tablet by mouth daily at bedtime. - aspirin 81 mg chewable tablet Take 1 tablet by mouth once daily. - lisinopril (ZESTRIL) 10 mg tablet Take 1 tablet by mouth once daily. 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 [Z79.01]09/22/2016 Paroxysmal atrial fibrillation (HCC) [I48.0] 09/22/2016 Hyperlipidemia [E78.5] 08/26/2022 Encounter Status:Closed by CORETTA JALLOH on 08/12/23 Normal [facility] PT panel Coag (PPP)on 2023 INR Coag (PPP) [Relative time] 1.4 {INR} High 0.9-1.3 [facility] Comment on above: Order Comment: Stone parmar Type: BLOOD SPECIMENOrdering Facility: [facility] Address: [address] [place] [address] Result Comment: Mary min K Antagonist (VKA) Therapeutic Range: INR 2 to 3 (Target INR of 2.5) Note: For patients treated with VKA drugs, such as warfarin, the [place] [employer] 2012 Guideline recommends [...] Chest 2012, 141:7S-47S Avel RA, et al. [facility] 2017, 70: 252-289 Performed By: #### 3 4528-0 ####[facility] [id number] [place] [address] [place] PT Coag (PPP) [Time] 14.5 s High 9.7-13.0 [facility] Comment on above: Order Comment: Stone parmar Type: BLOOD SPECIMENOrdering Facility: [facility] Address: [address] [place] [address] Performed By: #### 3 4528-0 ####[facility] [id number] [place] [address] [place] CBC W Auto Differential pane l (Bld)on 06-04-2023 Basophils (Bld) [#/Vol] 0.06 10*3/uL <0.11 k/uL [facility] Basophils/100 WBC (Bld) 0.9 % [facility] Differential cell count method Nom (Bld) Auto [facility] Eosinophils (Bld) [#/Vol] 0.16 10*3/uL <0.46 k/uL [facility] Eosinophils/100 WBC (Bld) 2.4 % [facility] Erythrocyte distribution width (RBC) [Ratio] 15.7 % High 11.5 - 15.0 % [facility] Hematocrit (Bld) [Volume fraction] 34.9 % Low 39.0 - 51.0 % [facility] Hemoglobin (Bld) [Mass/Vol] 10.0 g/dL Low 13.0 - 17.0 g/dL [facility] Immature granulocytes (Bld) [#/Vol] <0.10 k/uL [facility] Immature granulocytes/100 WBC (Bld) 0.3 % [facility] Lymphocytes (Bld) [#/Vol] 1.65 10*3/uL 1.00 - 4.00 k/uL [facility] Lymphocytes/100 WBC (Bld) 24.8 % [facility] MCH (RBC) [Entitic mass] 20.9 pg Low 26.0 - 34.0 pg [facility] MCHC (RBC) [Mass/Vol] 28.7 g/dL Low 30.5 - 36.0 g/dL [facility] MCV (RBC) [Entitic vol] 73.0 fL Low 80.0 - 100.0 fL [facility] Monocytes (Bld) [#/Vol] 0.61 10*3/uL <0.87 k/uL [facility] Monocytes/100 WBC (Bld) 9.2 % [facility] Neutrophils (Bld) [#/Vol] 4.16 10*3/uL 1.45 - 7.50 k/uL [facility] Neutrophils/100 WBC (Bld) 62.4 % [facility] Nucleated RBC (Bld) [#/Vol] <0.01 k/uL [facility] Nucleated RBC/100 WBC (Bld) [Ratio] 0.0 /100 WBC [facility] Platelet mean volume (Bld) [Entitic vol] 10.7 fL 9.0 - 12.7 fL [facility] Platelets (Bld) [#/Vol] 297 10*3/uL 150 - 400 k/uL [facility] RBC (Bld) [#/Vol] 4.78 10*6/uL 4.20 - 6.00 m/uL [facility] WBC (Bld) [#/Vol] 6.66 10*3/uL 3.70 - 11.00 k/uL [facility] MRI BRAIN WO IVCONon 023 [facility] Absolute lymphocyte countOrd ered By: Brian Cunningham on 02-10-2023 Lymphocytes Auto (Unsp spec) [#/Vol] 0.99 10*3/uL 0.83-4.51 [facility] Automated blood hematocrit ( percentage)Ordered By: Brian Cunningham on 02-10-2023 Hematocrit (Bld) [Volume fraction] 36.2 % Low 40-54 [facility] Comment on above: Performed By: #### L 100.0100, L300.3900, L500.2500, L501.4020, L300.4310 #### [facility] [address] [place], [address] Basic Metabolic Profile (BMP )on 02-10-2023 BUN/CRE 23.8 RATIO High 10-20 [facility] Comment on above: Order Comment: 'TROP ' Serial specimen #1, #2 or #3: 1 Performed By: #### L 100.0100, L300.3900, L500.2500, L501.4020, L300.4310 #### [facility] [address] [place], [address] CA,Total 8.9 mg/dL Normal 8.5-10.1 [facility] Comment on above: Order Comment: 'TROP ' Serial specimen #1, #2 or #3: 1 Performed By: #### L 100.0100, L300.3900, L500.2500, L501.4020, L300.4310 #### [facility] [address] [place], [address] ECRCL 68.37 ml/min Normal [facility] Comment on above: Order Comment: 'TROP ' Serial specimen #1, #2 or #3: 1 Performed By: #### L 100.0100, L300.3900, L500.2500, L501.4020, L300.4310 #### [facility] [address] [place], [address] EST GFR - AA 118 mL/min Normal >60 [facility] Comment on above: Order Comment: 'TROP ' Serial specimen #1, #2 or #3: 1 Result Comment: Afri can [place] GFR Calc Performed By: #### L 100.0100, L300.3900, L500.2500, L501.4020, L300.4310 #### [facility] [address] [place], [address] GAP 2 Low 5-15 [facility] Comment on above: Order Comment: 'TROP ' Serial specimen #1, #2 or #3: 1 Performed By: #### L 100.0100, L300.3900, L500.2500, L501.4020, L300.4310 #### [facility] [address] [place], [address] GFR/1.73 sq M.predicted among non-blacks MDRD (S/P/Bld) [Vol rate/Area] 97 mL/min/{1.73_m2} Normal >60 [facility] Comment on above: Order Comment: 'TROP ' Serial specimen #1, #2 or #3: 1 Result Comment: Non- GFR Calc Performed By: #### L 100.0100, L300.3900, L500.2500, L501.4020, L300.4310 #### [facility] [address] [place], [address] Basic Metabolic Profile (BMP )Ordered By: Brian Cunningham on 02-10-2023 CO2 [Moles/Vol] 30.0 mmol/L Normal 21.0-32.0 [facility] Comment on above: Order Comment: 'TROP ' Serial specimen #1, #2 or #3: 1 Performed By: #### L 100.0100, L300.3900, L500.2500, L501.4020, L300.4310 #### [facility] [address] [place], [address] Basophil percentageOrdered B y: Brian Cunningham on 02-10-2023 Chloride [Moles/Vol] 108 mmol/L High 98-107 [facility] Comment on above: Order Comment: 'TROP ' Serial specimen #1, #2 or #3: 1 Performed By: #### L 100.0100, L300.3900, L500.2500, L501.4020, L300.4310 #### [facility] [address] [place], [address] Glucose [Mass/Vol] 117 mg/dL High 74-106 [facility] Comment on above: Fasting Glucose resu lt from 100 to 125 mg/dL suggests IMPAIRED HOMEOSTASIS per A.D.A. criteria. Order Comment: 'TROP ' Serial specimen #1, #2 or #3: 1 Result Comment: Fast ing Glucose result from 100 to 125 mg/dL suggests IMPAIRED HOMEOSTASIS per A.D.A. criteria. Performed By: #### L 100.0100, L300.3900, L500.2500, L501.4020, L300.4310 #### [facility] [address] [place], [address] Potassium [Moles/Vol] 4.0 mmol/L Normal 3.5-5.1 [facility] Comment on above: Order Comment: 'TROP ' Serial specimen #1, #2 or #3: 1 Performed By: #### L 100.0100, L300.3900, L500.2500, L501.4020, L300.4310 #### [facility] [address] [place], [address] Sodium [Moles/Vol] 140 mmol/L Normal 136-145 [facility] Comment on above: Order Comment: 'TROP ' Serial specimen #1, #2 or #3: 1 Performed By: #### L 100.0100, L300.3900, L500.2500, L501.4020, L300.4310 #### [facility] [address] [place], [address] Basophils/100 WBC (Bld) 0.8 % Normal 0-1 [facility] Comment on above: Performed By: #### L 100.0100, L300.3900, L500.2500, L501.4020, L300.4310 #### [facility] [address] [place], [address] Eosinophils/100 WBC (Bld) 0.4 % Normal 0-5 [facility] Comment on above: Performed By: #### L 100.0100, L300.3900, L500.2500, L501.4020, L300.4310 #### [facility] [address] [place], [address] Neutrophils/100 WBC (Bld) 77.9 % High 47-70 [facility] Comment on above: Performed By: #### L 100.0100, L300.3900, L500.2500, L501.4020, L300.4310 #### [facility] [address] [place], [address] WBC (Bld) [#/Vol] 7.5 10*3/uL Normal 4.4-11.0 [facility] Comment on above: Performed By: #### L 100.0100, L300.3900, L500.2500, L501.4020, L300.4310 #### [facility] [address] [place], [address] Basophil percentage 0-5 SEEN /hpf 0-[address] [facility] Neutrophils (Bld) [#/Vol] 5.8 10*3/uL 2.0-7.7 [facility] Bilirubin Test strip Ql (U)O rdered By: Brian Cunningham on 02-10-2023 Bilirubin Ql (U) 1 mg/dL Negative [facility] Comment on above: COLOR OF URINE MAY A FFECT DIPSTICK RESULTS. Blood erythrocytes count (nu mber/volume)Ordered By: Brian Cunningham on 02-10-2023 RBC (Bld) [#/Vol] 4.42 10*6/uL Low 4.6-6.2 [facility] Comment on above: Performed By: #### L 100.0100, L300.3900, L500.2500, L501.4020, L300.4310 #### [facility] [address] [facility] [address] Blood hemoglobin measurement (mass/volume)Ordered By: Brian Cunningham on 02-10-2023 Hemoglobin (Bld) [Mass/Vol] 10.6 g/dL Low 13.0-16.5 [facility] Comment on above: Performed By: #### L 100.0100, L300.3900, L500.2500, L501.4020, L300.4310 #### [facility] [address] [place] [id number] Blood lymphocytes/100 leukoc ytesOrdered By: Brian Cunningham on 02-10-2023 Lymphocytes/100 WBC (Bld) 13.3 % Low 19-41 [facility] Comment on above: Performed By: #### L 100.0100, L300.3900, L500.2500, L501.4020, L300.4310 #### [facility] [address] [place] [id number] Blood monocytes/100 leukocyt esOrdered By: Brian Cunningham on 02-10-2023 Monocytes/100 WBC (Bld) 7.2 % Normal 0-10 [facility] Comment on above: Performed By: #### L 100.0100, L300.3900, L500.2500, L501.4020, L300.4310 #### [facility] [address] [facility] [address] Blood platelet mean volumeOr dered By: Brian Cunningham on 02-10-2023 Platelet mean volume (Bld) [Entitic vol] 9.9 fL Normal 6.2-12.0 [facility] Comment on above: Performed By: #### L 100.0100, L300.3900, L500.2500, L501.4020, L300.4310 #### [facility] [address] [place], [address] CBC W/Diff, Automatedon 01-22 Absolute Lymph 0.99 X10 3/uL Normal 0.83-4.51 [facility] Comment on above: Performed By: #### L 100.0100, L300.3900, L500.2500, L501.4020, L300.4310 #### [facility] [address] [place], [address] Absolute Neut 5.8 X10 3/uL Normal 2.0-7.7 [facility] Comment on above: Performed By: #### L 100.0100, L300.3900, L500.2500, L501.4020, L300.4310 #### [facility] [address] [place], [address] IG% 0.400 Normal 0.0-0.9 [facility] Comment on above: Result Comment: IG% - Immature Granulocytes (promyelocytes, myelocytes and metamyelocytes) > 1% indicates that a LEFT SHIFT is Present. Performed By: #### L 100.0100, L300.3900, L500.2500, L501.4020, L300.4310 #### [facility] [address] [place], [address] Nucleated RBC (Bld) [#/Vol] 0 10*3/uL Normal 0-5 [facility] Comment on above: Performed By: #### L 100.0100, L300.3900, L500.2500, L501.4020, L300.4310 #### [facility] [address] [place], [address] RDW SD 41.8 fl Normal 35.1-43.9 [facility] Comment on above: Performed By: #### L 100.0100, L300.3900, L500.2500, L501.4020, L300.4310 #### [facility] [address] [place], [address] CBC W/Diff, AutomatedOrdered By: Brian Cunningham on 02-10-2023 Erythrocyte distribution width (RBC) [Ratio] 14.1 % Normal 11.6-14.6 [facility] Comment on above: Performed By: #### L 100.0100, L300.3900, L500.2500, L501.4020, L300.4310 #### [facility] [address] [place], [address] MCH (RBC) [Entitic mass] 24.0 pg Low 27.0-32.0 [facility] Comment on above: Performed By: #### L 100.0100, L300.3900, L500.2500, L501.4020, L300.4310 #### [facility] [address] [place], [address] Chest 1 View (Portable)on Chest 1 View (Portable) [facility] Services [address] [place] [address] Chest 1 View (Portable) MR#: [id number] Acct: [id number] Name: ROBY FLORES Rep #: [id number] : 1935 M 87 From: Greg antonio MD PCP: Dr. Stas Mora MD Status: [facility] ER Study: Chest 1 View (Portable) Date of Exam: 02/10/23 Exam# [id number] Ordering Dr: Brian Cunningham DO :[id number] STUDY: X-RAY CHEST REASON FOR EXAM: Male, 87 years old. Weakness TECHNIQUE: Single AP portable view of the chest. COMPARISON: 12/21/2021. FINDINGS: The lungs are clear and expanded. There is no demonstrated pleural abnormality. Normal size heart. Normal mediastinum and david. Normal visualized pulmonary arteries. There is atherosclerotic tortuosity of the aortic arch and descending thoracic aorta. There are diffuse degenerative changes of the visualized thoracic spine. Normal visualized ribs, clavicles, and shoulders. There is no demonstrated abnormality of the visualized soft tissue structures of the upper abdomen. RAD/Chest 1 View (Portable) IMPRESSION: No definite acute or significant abnormality seen. Electronically Signed: Greg Ronquillo MD at 16:24 EST , CC: Dr. Brina Cunningham DO; Dr. Stas Mora MD Fitter Mechanic: Signed Normal [facility] Determination of erythrocyte mean corpuscular volume (MCV)Ordered By: Brian Cunningham on 02-10-2023 MCV (RBC) [Entitic vol] 81.9 fL Normal 80-94 [facility] Comment on above: Performed By: #### L 100.0100, L300.3900, L500.2500, L501.4020, L300.4310 #### [facility] [address] [place], [address] Emergency Department Summary on 02-10-2023 Emergency Department Summary [facility] Medical Records Department [address] [place] [address] Emergency Department Summary 02/10/23 MR#: [id number] Acct: [id number] Name: ROBY FLORES Rep #: [id number] : 1935 87 From: Brian Cunningham DO PCP: Dr. Stas Mora MD Status:DEP ER Location: ED HPI History of Present Illness Chief Complaint: Fatigue Informant: patient Onset/Context/Timing Onset: Yesterday Context: Gradual Onset Timing: Continuous Quality: Weakness Location: Generalized Worsened by: Nothing Relieved by: Nothing Narrative Narrative: Presents with generalized weakness that has been getting worse since yesterday morning. Patient states it is gradually getting worse. Patient states he feels weak all over. Patient admits to a mild sore throat and some neck pain. Patient denies any chest pain or shortness of breath. Patient denies any cough. Patient denies any nausea or vomiting. Patient denies any fevers or chills. Patient denies any urinary complaints. Patient denies any headaches. PFSH [facility] Medical History Anticoagulant long-term use CAD (coronary artery disease) Chronic anticoagulation TIA (transient ischemic attack) Home Medications warfarin 2.5 mg tablet 2.5 mg PO DAILY blood thinner 10/06/17 [History Last Taken 10/06/17] aspirin 81 mg chewable tablet 81 mg PO BREAKFAST #30 tabs 12/22/21 [Rx Last Taken Unknown] atorvastatin 40 mg tablet 40 mg PO QHS #30 tabs 12/22/21 [Rx Last Taken Unknown] lisinopril 10 mg tablet 10 mg PO DAILY #30 tabs 12/22/21 [Rx Last Taken Unknown] Allergy/AdvReac Type Severity Reaction Status Date / Time No Known Allergies Allergy Verified 02/10/23 14:32 Family History Other Alcoholism Surgical History History of appendectomy Hx of appendectomy Stented coronary artery Social History household members: spouse Smoking Status: Former smoker substance use type: does not use ROS ROS ED Constitutional Constitutional ED: Denies chills or fever(s) Eyes Eyes: Denies blurry vision or change in vision ENT ENT ED: Reports sore throat; Denies rhinorrhea Cardiovascular Cardiovascular: Denies chest pain or palpitations Respiratory/Chest Respiratory/Chest: Denies cough or dyspnea Gastrointestinal Gastrointestinal: Denies nausea or vomiting Genitourinary Genitourinary ED: Denies dysuria or hematuria Musculoskeletal Musculoskeletal: Reports neck pain; Denies back pain Integumentary Denies abscess or rash Neurologic Neurologic: Reports weakness; Denies headache(s) Allergic/Immunologic Allergic/Immunologic ED: Denies mouth swelling or urticaria EXAM Physical Exam Const Vital Signs: 02/10/23 14:32 02/10/23 15:20 02/10/23 15:29 Temperature 98 F Temperature Source Temporal Pulse Rate 78 66 Respiratory Rate 18 16 Respiratory Effort Normal Non-Labored Respiratory Pattern Normal Blood Pressure 141/62 H 147/75 H Blood Pressure Mean 88 99 Pulse Ox 98 97 Oxygen Delivery Method Room Air Room Air 02/10/23 16:59 Temperature Temperature Source Pulse Rate 79 Respiratory Rate 12 Respiratory Effort Respiratory Pattern Blood Pressure 153/68 H Blood Pressure Mean 96 Pulse Ox 98 Oxygen Delivery Method Room Air Positive well nourished and well developed General Appearance ED: well developed and NAD HEENT Reports moist mucous membranes Neck supple and no JVD Resp normal respiratory effort and clear to auscultation bilaterally Cardio regular rate and regular rhythm GI non-tender and non-distended Palpation: soft Extremity normal to inspection General Extremety ED: Negative for edema or tenderness General Extremity: Negative for edema Neuro oriented x3, CN's II-XII intact bilaterally and no sensory deficits noted Sensorium / Orientation: alert Motor Exam: strength 5/5 throughout and general weakness Psych mental status grossly normal MDM MDM MDM Narrative Medical decision making narrative: Differential diagnosis includes cardiac dysrhythmia, cardiac ischemia, pneumonia, pneumothorax, urinary tract infection, pyelonephritis, viral illness, dehydration, electrolyte abnormality, and gastroenteritis. EKG will be obtained to assess for cardiac dysrhythmia and cardiac ischemia. Chest x-ray will be obtained to assess for pneumonia and pneumothorax. CBC will be obtained to assess for leukocytosis and anemia. Basic metabolic profile will be obtained to assess for electrolyte abnormality and renal function. High-sensitivity troponin will be obtained to assess for cardiac ischemia. PT wit (more content not included)... Normal [facility] INR in Blood by Coagulation assayOrdered By: Brian Cunningham on 02-10-2023 INR Coag (Bld) [Relative time] 1.2 {INR} [facility] Influenza virus A and B and SARS-CoV-2 (COVID-19) Ag panel - Upper respiratory specimOrdered By: Brian Cunningham on 02-10-2023 SARS-CoV-2 (COVID-19) RNA LOLI+probe Ql (Resp) [facility] Ketones Test strip Ql (U)Ord ered By: Brian Cunningham on 02-10-2023 Ketones Ql (U) 5 mg/dl Negative [facility] L501.4020on 02-10-2023 TROPONIN-I HS 16 pg/mL Normal 3.0-78.0 [facility] Comment on above: Order Comment: 'TROP ' Serial specimen #1, #2 or #3: 1 Result Comment: Plea se Note: New Test Units and Gender Specific Reference Ranges. For more information see Policy Stat Procedure Early High Sensitivity Troponin (TNIH) and attachments. Performed By: #### L 100.0100, L300.3900, L500.2500, L501.4020, L300.4310 #### [facility] [address] [place], [address] Laboratory - Chemistry and C hemistry - challengeOrdered By: Brian Cunningham on 02-10-2023 Urea nitrogen/Creatinine [Mass ratio] 23.8 mg/mg 10- [facility] - Hematology and Cell countsOrdered By: Brian Cunningham on 02-10-2023 Erythrocyte distribution width (RBC) [Entitic vol] 41.8 fL 35.1-43.9 [facility] Immature granulocytes/100 WBC (Bld) 0.400 % 0.0-0.9 [facility] Comment on above: IG% - Immature Granu locytes (promyelocytes, myelocytes and metamyelocytes) > 1% indicates that a LEFT SHIFT is Present. Nucleated RBC/100 WBC (Bld) [Ratio] 0 % 0-5 [facility] M101.0111on 02-10-2023 M101.0111 *Negative results fr om patients with symptom onset beyond five days should be treated as presumptive and confirmed by a molecular assay if clinically necessary. Negative results should not be used as the sole basis for treatment or for patient management. FLUABV+SARS-CoV2 Ag Pnl Up resp IA.rapid *Positive results do not differentiate between SARS-CoV and SARS-CoV-2. FLUABV+SARS-CoV2 Ag Pnl Up resp IA.rapid Negative Influenza results should be confirmed with FLU PANEL MOLECULAR if indicated. FLUABV+SARS-CoV2 Ag Pnl Up resp IA.rapid * This test has not been FDA cleared or approved; the test has been authorized by FDA under an Emergency Use Authorization (EAU) for use by laboratories certified under CLIA that meet the requirements to perform moderate, high, or waived complexity tests. FLUABV+SARS-CoV2 Ag Pnl Up resp IA.rapid Normal Reference Range: Negative Kajal, CHUCKY method SARS-CoV-2 (COVID 19) Negative Influenza Ag, Direct NEGATIVE for Influenza A/B Antigen (See Note) Normal [facility] Comment on above: Performed By: #### M 101.0111 #### [facility] [address] [place], [address] MCHC [Mass/volume] by Automa eli countOrdered By: Brian Cunningham on 02-10-2023 MCHC (RBC) [Mass/Vol] 29.3 g/dL Low 32-36 [facility] Comment on above: Performed By: #### L 100.0100, L300.3900, L500.2500, L501.4020, L300.4310 #### [facility] [address] [place], [address] Mucus LM Ql (Urine sed)Order ed By: Brian Cunningham on 02-10-2023 Mucus Ql (Urine sed) 0 SEEN /hpf [facility] Nitrite Test strip Ql (U)Ord ered By: Brian Cunningham on 02-10-2023 Nitrite Ql (U) Negative Negative [facility] No Panel InformationOrdered By: Brian Cunningham on 02-10-2023 Estimated Creatinine Clearance Calc 68.37 ml/min [facility] Estimated GFR (MDRD) Amer 118 mL/min >60 [facility] Comment on above: GFR Calc Estimated GFR (MDRD) Non-Af Amer 97 mL/min >60 [facility] Comment on above: Non- GFR Calc Troponin I High Sensitivity 16 pg/mL 3.0-78.0 [facility] Comment on above: Please Note: New Hiwot t Units and Gender Specific Reference Ranges. For more information see Policy Stat Procedure Early High Sensitivity Troponin (TNIH) and attachments. Partial Thromboplast TimeOrd ered By: Brian Cunningham on 02-10-2023 aPTT Coag (Bld) [Time] 26.3 s Normal 24.1-36.2 [facility] Comment on above: Performed By: #### L 100.0100, L300.3900, L500.2500, L501.4020, L300.4310 #### [facility] [address] [place], [address] Platelets bldOrdered By: Caitlyn Cunningham on 02-10-2023 Platelets (Bld) [#/Vol] 328 10*3/uL Normal 150-450 [facility] Comment on above: Performed By: #### L 100.0100, L300.3900, L500.2500, L501.4020, L300.4310 #### [facility] [address] [place], [address] Protein Test strip Ql (U)Ord ered By: Brian Cunningham on 02-10-2023 Protein Ql (U) 15 mg/dl Negative [facility] Prothrombin Time w/INRon INR Coag (PPP) [Relative time] 1.2 {INR} Normal [facility] Comment on above: Performed By: #### L 100.0100, L300.3900, L500.2500, L501.4020, L300.4310 #### [facility] [address] [place], [address] Prothrombin Time w/INROrdere d By: Brian Cunningham on 02-10-2023 PT Coag (PPP) [Time] 15.6 s High 11.7-14.9 [facility] Comment on above: Performed By: #### L 100.0100, L300.3900, L500.2500, L501.4020, L300.4310 #### [facility] [address] [place], [address] Serum or plasma calcium alvaro urement (mass/volume)Ordered By: Brian Cunningham on 02-10-2023 Calcium [Mass/Vol] 8.9 mg/dL 8.5-10.1 [facility] Serum or plasma creatinine m easurement (mass/volume)Ordered By: Brian Cunningham on 02-10-2023 Creatinine [Mass/Vol] 0.80 mg/dL Normal 0.70-1.30 [facility] Comment on above: The validity of the calculated GFR & GFRAA in patients over 70 years has not been determined. Clinical correlation is essential. Order Comment: 'TROP ' Serial specimen #1, #2 or #3: 1 Result Comment: The validity of the calculated GFR GFRAA in patients over 70 years has not been determined. Clinical correlation is essential. Performed By: #### L 100.0100, L300.3900, L500.2500, L501.4020, L300.4310 #### [facility] [address] [place], [address] Serum or plasma urea nitroge n measurement (mass/volume)Ordered By: Brian Cunningham on 02-10-2023 Urea nitrogen [Mass/Vol] 19 mg/dL High 7-18 [facility] Comment on above: Order Comment: 'TROP ' Serial specimen #1, #2 or #3: 1 Performed By: #### L 100.0100, L300.3900, L500.2500, L501.4020, L300.4310 #### [facility] [address] [place], [address] Squamous epithelial cells de tection in urine sediment by light microscopyOrdered By: Brian Cunningham on 02-10-2023 Epithelial cells.squamous LM Ql (Urine sed) 0 SEEN /hpf 0-5 [facility] Thin prep Papanicolaou smear with manual screeningOrdered By: Brian Cunningham on 02-10-2023 Thin prep Papanicolaou smear with manual screening 2 5-15 [facility] Urinalysis, Completeon 11-21 -2023 WBC 0-5 SEEN Normal 0-5 [facility] Comment on above: Order Comment: CLEAN CATCH Performed By: #### L 400.0001 #### [facility] [address] [place], [address] BACTERIA 0 SEEN Normal None Seen [facility] Comment on above: Order Comment: CLEAN CATCH Performed By: #### L 400.0001 #### [facility] [address] [place], [address] EPI,SQUAMOUS 0 SEEN Normal 0-5 [facility] Comment on above: Order Comment: CLEAN CATCH Performed By: #### L 400.0001 #### [facility] [address] [place], [address] Mucus Ql (Urine sed) 0 SEEN Normal [facility] Comment on above: Order Comment: CLEAN CATCH Performed By: #### L 400.0001 #### [facility] [address] [place], [address] RBC 0 SEEN Normal 0-5 [facility] Comment on above: Order Comment: CLEAN CATCH Performed By: #### L 400.0001 #### [facility] [address] [place], [address] Urine blood detectionOrdered By: Brian Cunningham on 02-10-2023 RBC Ql (U) Negative Negative [facility] RBC Ql (U) 0 SEEN /hpf 0-5 [facility] Urine clarityOrdered By: Caitlyn Cunningham on 02-10-2023 Clarity (U) Clear Clear [facility] Urine color determinationOrd ered By: Brian Cunningham on 02-10-2023 Color (U) Yellow Yellow [facility] Urine glucose detectionOrder ed By: Brian Cunningham on 02-10-2023 Glucose Ql (U) Normal mg/dl Normal [facility] Urine leukocyte esterase det ection by dipstickOrdered By: Brian Cunningham on 02-10-2023 Leukocyte esterase Test strip Ql (U) 25 /ul Negative [facility] Urine pHOrdered By: Brian lawlerrashard on 02-10-2023 pH (U) 6.5 [pH] 5.0 - 8.0 [facility] Urine sediment bacteria coun t by microscopy (number/high power field)Ordered By: Brian Cunningham on 02-10-2023 Bacteria LM.HPF (Urine sed) [#/Area] 0 /[HPF] None Seen [facility] Urine specific gravity measu rementOrdered By: Brian Cunningham on 02-10-2023 Specific gravity (U) [Rel density] 1.015 1.002-1.03 0 [facility] Urobilinogen Auto test strip Ql (U)Ordered By: Brian Cunningham on 02-10-2023 Urobilinogen Ql (U) 4 mg/dl Normal [facility] CT HEAD OR BRAIN W/O CONTRAS Ton 11-17-2022 CT HEAD OR BRAIN W/O CONTRAST ORIGINAL EXAMINATION: CT OF THE HEAD WITHOUT CONTRAST 11/17/2022 4:17 pm TECHNIQUE: CT of the head was performed without the administration of intravenous contrast. Automated exposure control, iterative reconstruction, and/or weight based adjustment of the mA/kV was utilized to reduce the radiation dose to as low as reasonably achievable. COMPARISON: None. HISTORY: ORDERING SYSTEM PROVIDED HISTORY: Reason for Exam: pain FINDINGS: BRAIN/VENTRICLES: There is no acute intracranial hemorrhage, mass effect or midline shift. No abnormal extra-axial fluid collection. There is extensive bilateral microangiopathic change. There is a 9 mm left basal ganglion lacunar infarct which is the doan-white differentiation is maintained without evidence of an acute infarct. There is no evidence of hydrocephalus. ORBITS: The visualized portion of the orbits demonstrate no acute abnormality. SINUSES: Left maxillary sinus is hypoplastic and opacified. SOFT TISSUES/SKULL: No acute abnormality of the visualized skull or soft tissues. IMPRESSION: No acute intracranial abnormality. Extensive white matter disease most commonly seen in microangiopathic change. 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 Interpreted by: Silvestre Chaudhari MD Preliminary Report By: Silvestre Chaudhari MD Electronically signed By Silvestre Chaudhari MD Dictated Date: 11/17/2022 4:24:43 PM Prelim Date: 11/17/2022 4:26:20 PM Sign Date: 11/17/2022 4:26:20 PM Ordering Provider: STERLING Plummer [facility] ([place] XR Pelvis and Hip - left AP and Lateral frogon 05-21-2022 IMPRESSION: No acute fracture or hip dislocation Fitter Mechanic: PSC Transcribe Date/Time: May 21 2022 3:41P Dictated by : JUDY MCKENZIE MD This examination was interpreted and the report reviewed and electronically signed by: JUDY MCKENZIE MD on May 21 2022 3:43PM EST DIVISION OF RADIOLOGY * * *Final Report* * * DATE OF EXAM: May 21 2022 3:41PM WOX [id number] - XR HIP 3V PELV+ AP/LAT LT / PROCEDURE REASON: Left hip pain * * * * Physician Interpretation * * * * EXAMINATION: XR HIP 3V PELV+ AP/LAT LT CLINICAL HISTORY: Left hip pain Technique: XR HIP 3V PELV+ AP/LAT LT -- LEFT with 3 views on 3 images Comparison: None RESULT: No acute fracture or dislocation. Mild hip joint space narrowing. Small acetabular osteophytes. DIVISION OF RADIOLOGY Provider, [facility] - 05/21/2022 * * *Final Report* * * DATE OF EXAM: May 21 2022 3:41PM WOX 5351 - XR HIP 3V PELV+ AP/LAT LT / PROCEDURE REASON: Left hip pain * * * * Physician Interpretation * * * * EXAMINATION: XR HIP 3V PELV+ AP/LAT LT CLINICAL HISTORY: Left hip pain Technique: XR HIP 3V PELV+ AP/LAT LT -- LEFT with 3 views on 3 images Comparison: None RESULT: No acute fracture or dislocation. Mild hip joint space narrowing. Small acetabular osteophytes. IMPRESSION IMPRESSION: No acute fracture or hip dislocation Fitter Mechanic: PSCB Transcribe Date/Time: May 21 2022 3:41P Dictated by : JUDY MCKENZIE MD This examination was interpreted and the report reviewed and electronically signed by: JUDY MCKENZIE MD on May 21 2022 3:43PM EST [facility] Radiology Study observation (narrative) [facility] XR Pelvis and Hip - left AP and Lateral frogOrdered By: Ccf Provider on 05-21-2022 [facility] PT panel Coag (PPP)on 2022 INR Coag (Bld) [Relative time] 1.7 {INR} [facility] Basophil percentageon 2021 Cholesterol [Mass/Vol] 152 mg/dL <200 [facility] Work Phone: Comment on above: <200 mg/dL Desirable 200-240 mg/dL Borderline >240 mg/dL High Risk Triglyceride [Mass/Vol] 76 mg/dL <199 [facility] Work Phone: Comment on above: The drugs N-Acetylcy steine and Metamizole may falsely depress this assay.Serum Triglycerides Reference Interval Normal <150 mg/dL Borderline high 150 - 199 mg/dL High 200 - 499 mg/dL Very High > or = 500 mg/dL INR in Blood by Coagulation assayon 12-22-2021 INR Coag (Bld) [Relative time] 2.5 {INR} [facility] Work Phone: Laboratory - Chemistry and C hemistry - challengeon 12-22-2021 Magnesium [Mass/Vol] 2.1 mg/dL 1.6-2.6 [facility] Work Phone: Laboratory - Coagulationon 1 PT Coag (PPP) [Time] 27.0 s 11.7-14.9 [facility] Work Phone: No Panel Informationon 12-22 Thyroid Stimulating Hormone (TSH) 0.42 uIU/mL 0.358-3.74 [facility] Work Phone: Serum or plasma cholesterol in HDL measurement (mass/volume)on 12-22-2021 Cholesterol in HDL [Mass/Vol] 35 mg/dL >40 [facility] Work Phone: Comment on above: The drugs N-Acetylcy steine and Metamizole may falsely depress this assay. Reference Range HDL <40 mg/dL Low HDL Cholesterol HDL >or= 60 mg/dL High HDL Cholesterol Serum or plasma cholesterol in VLDL measurement (mass/volume)on 12-22-2021 Cholesterol in VLDL [Mass/Vol] 15 mg/dL 5-40 [facility] Work Phone: Serum or plasma low density lipoprotein (LDL) cholesterol measurement (mass/volume)on 12-22-2021 Cholesterol in LDL [Mass/Vol] 102 mg/dL 0-130 [facility] Work Phone: Whole blood hemoglobin A1c/t otal hemoglobin ratio (mass fraction)on 12-22-2021 HbA1c (Bld) [Mass fraction] 5.9 % 3.8-5.6 [facility] Work Phone: Comment on above: Normal < 5.7 % Predi abetic 5.7 - 6.4 % Diabetic >or= 6.5 % Please note range changes. Absolute lymphocyte counton 12-21-2021 Lymphocytes Auto (Unsp spec) [#/Vol] 1.23 10*3/uL 0.83-4.51 [facility] Work Phone: Basophil percentageon 2021 Basophils/100 WBC (Bld) 0.4 % 0-1 [facility] Work Phone: Chloride [Moles/Vol] 106 mmol/L 98-107 [facility] Work Phone: Eosinophils/100 WBC (Bld) 1.4 % 0-5 [facility] Work Phone: Glucose [Mass/Vol] 107 mg/dL 74-106 [facility] Work Phone: Comment on above: Fasting Glucose resu lt from 100 to 125 mg/dL suggests IMPAIRED HOMEOSTASIS per A.D.A. criteria. Neutrophils (Bld) [#/Vol] 5.7 10*3/uL 2.0-7.7 [facility] Work Phone: Neutrophils/100 WBC (Bld) 72.4 % 47-70 [facility] Work Phone: Potassium [Moles/Vol] 3.7 mmol/L 3.5-5.1 [facility] Work Phone: [phone] Sodium [Moles/Vol] 141 mmol/L 136-145 [facility] Work Phone: WBC (Bld) [#/Vol] 7.9 10*3/uL 4.4-11.0 [facility] Work Phone: Blood erythrocytes count (nu mber/volume)on 12-21-2021 RBC (Bld) [#/Vol] 4.85 10*6/uL 4.6-6.2 [facility] Work Phone: Blood hemoglobin measurement (mass/volume)on 12-21-2021 Hemoglobin (Bld) [Mass/Vol] 14.5 g/dL 13.0-16.5 [facility] Work Phone: Blood lymphocytes/100 leukoc yteson 12-21-2021 Lymphocytes/100 WBC (Bld) 15.5 % 19-41 [facility] Work Phone: Blood monocytes/100 leukocyt eson 12-21-2021 Monocytes/100 WBC (Bld) 9.9 % 0-10 [facility] Work Phone: Blood platelet mean volumeon 12-21-2021 Platelet mean volume (Bld) [Entitic vol] 10.2 fL 6.2-12.0 [facility] Work Phone: Determination of erythrocyte mean corpuscular volume (MCV)on 12-21-2021 MCV (RBC) [Entitic vol] 92.0 fL 80-94 [facility] Work Phone: Hematocrit Auto (Bld) [Volum e fraction]on 12-21-2021 Hematocrit (Bld) [Volume fraction] 44.6 % 40-54 [facility] Work Phone: INR in Blood by Coagulation assayon 12-21-2021 INR Coag (Bld) [Relative time] 2.3 {INR} [facility] Work Phone: Laboratory - Chemistry and C hemistry - challengeon 12-21-2021 CO2 [Moles/Vol] 29.0 mmol/L 21.0-32.0 [facility] Work Phone: Urea nitrogen/Creatinine [Mass ratio] 21.8 mg/mg 10-20 [facility] Work Phone: Laboratory - Coagulationon 1 aPTT Coag (Bld) [Time] 36.6 s 24.1-36.2 [facility] Work Phone: PT Coag (PPP) [Time] 24.7 s 11.7-14.9 [facility] Work Phone: Laboratory - Hematology and Cell countson 12-21-2021 Erythrocyte distribution width (RBC) [Entitic vol] 42.2 fL 35.1-43.9 [facility] Work Phone: Erythrocyte distribution width (RBC) [Ratio] 12.5 % 11.6-14.6 [facility] Work Phone: Immature granulocytes/100 WBC (Bld) 0.400 % 0.0-0.9 [facility] Work Phone: Comment on above: IG% - Immature Granu locytes (promyelocytes, myelocytes and metamyelocytes) > 1% indicates that a LEFT SHIFT is Present. MCH (RBC) [Entitic mass] 29.9 pg 27.0-32.0 [facility] Work Phone: Nucleated RBC/100 WBC (Bld) [Ratio] 0 % 0-5 [facility] Work Phone: MCHC Auto (RBC) [Mass/Vol]on 12-21-2021 MCHC (RBC) [Mass/Vol] 32.5 g/dL 32-36 [facility] Work Phone: No Panel Informationon 12-21 Estimated Creatinine Clearance Calc 66.90 ml/min [facility] Work Phone: Estimated GFR (MDRD) Amer 107 mL/min >60 [facility] Work Phone: Comment on above: GFR Calc Estimated GFR (MDRD) Non-Af Amer 88 mL/min >60 [facility] Work Phone: Comment on above: Non- GFR Calc Troponin I High Sensitivity 13 pg/mL 3.0-78.0 [facility] Work Phone: [phone] Comment on above: Please Note: New Hiwot t Units and Gender Specific Reference Ranges. For more information see Policy Stat Procedure Early High Sensitivity Troponin (TNIH) and attachments. Platelets bldon 12-21-2021 Platelets (Bld) [#/Vol] 241 10*3/uL 150-450 [facility] Work Phone: Serum or plasma calcium alvaro urement (mass/volume)on 12-21-2021 Calcium [Mass/Vol] 9.2 mg/dL 8.5-10.1 [facility] Work Phone: Serum or plasma creatinine m easurement (mass/volume)on 12-21-2021 Creatinine [Mass/Vol] 0.87 mg/dL 0.70-1.30 [facility] Work Phone: Comment on above: The validity of the calculated GFR & GFRAA in patients over 70 years has not been determined. Clinical correlation is essential. Serum or plasma urea nitroge n measurement (mass/volume)on 12-21-2021 Urea nitrogen [Mass/Vol] 19 mg/dL 10-07 [facility] Work Phone: Thin prep Papanicolaou smear with manual screeningon 12-21-2021 Thin prep Papanicolaou smear with manual screening 6 08-04 [facility] Work Phone: CBC panel Auto (Bld)on 07-08 Erythrocyte distribution width (RBC) [Ratio] 13.1 % 11.5 - 15.0 % [facility] Hematocrit (Bld) [Volume fraction] 49.5 % 39.0 - 51.0 % [facility] Hemoglobin (Bld) [Mass/Vol] 15.9 g/dL 13.0 - 17.0 g/dL [facility] MCH (RBC) [Entitic mass] 29.6 pg 26.0 - 34.0 pg [facility] MCHC (RBC) [Mass/Vol] 32.1 g/dL 30.5 - 36.0 g/dL [facility] MCV (RBC) [Entitic vol] 92.2 fL 80.0 - 100.0 fL [facility] Nucleated RBC (Bld) [#/Vol] 10*3/uL <0.01 k/uL [facility] Platelet mean volume (Bld) [Entitic vol] 10.7 fL 9.0 - 12.7 fL [facility] Platelets (Bld) [#/Vol] 235 10*3/uL 150 - 400 k/uL [facility] RBC (Bld) [#/Vol] 5.37 10*6/uL 4.20 - 6.00 m/uL [facility] WBC (Bld) [#/Vol] 10.33 10*3/uL 3.70 - 11.00 k/uL [facility] XR Lumbar spine 3 Viewson IMPRESSION: 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 Fitter Mechanic: EDUAR Transcribe Date/Time: Mar 13 2020 8:34A Dictated by : GABRIELLE BENTLEY MD This examination was interpreted and the report reviewed and electronically signed by: GABRIELLE BENTLEY MD on Mar 13 2020 8:35AM [facility] DIVISION OF RADIOLOGY * * *Final Report* * * DATE OF EXAM: Mar 12 2020 5:08PM WOX [id number] - XR LUMBAR 3V AP/LAT/L5-S1 / PROCEDURE REASON: Acute right-sided low back pain, unspecified whether sciatica present * * * * Physician Interpretation * * * * EXAM TITLE: XR LUMBAR 3V AP/LAT/L5-S1 EXAM DATE/TIME: 03/12/2020 5:08 PM COMPARISON: None. CLINICAL INDICATION/HISTORY: Low back pain. TECHNIQUE: AP, lateral and cone down lateral views of the lumbar spine are presented. FINDINGS: There are five jqw-bnd-gyvsezg lumbar vertebrae. No fracture or subluxations are noted. L5-S1 disc space narrowing is demonstrated. There is significant osteophyte formation. Kissing spine seen on lateral view. DIVISION OF RADIOLOGY Provider, [facility] - 03/13/2020 * * *Final Report* * * DATE OF EXAM: Mar 12 2020 5:08PM WOX [id number] - XR LUMBAR 3V AP/LAT/L5-S1 / PROCEDURE REASON: Acute right-sided low back pain, unspecified whether sciatica present * * * * Physician Interpretation * * * * EXAM TITLE: XR LUMBAR 3V AP/LAT/L5-S1 EXAM DATE/TIME: 03/12/2020 5:08 PM COMPARISON: None. CLINICAL INDICATION/HISTORY: Low back pain. TECHNIQUE: AP, lateral and cone down lateral views of the lumbar spine are presented. FINDINGS: There are five dep-ghf-jhbfozw lumbar vertebrae. No fracture or subluxations are noted. L5-S1 disc space narrowing is demonstrated. There is significant osteophyte formation. Kissing spine seen on lateral view. 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 Fitter Mechanic: PSCB Transcribe Date/Time: Mar 13 2020 8:34A Dictated by : GABRIELLE BENTLEY MD This examination was interpreted and the report reviewed and electronically signed by: GABRIELLE BENTLEY MD on Mar 13 2020 8:35AM EST [facility] XR Lumbar spine 3 ViewsOrder ed By: Ccf Provider on 03-13-2020 [facility] XR Lumbar spine 3 Viewson Radiology Study observation (narrative) [facility] PROGRESSon 06-09-2017 PROGRESS HNO ID: [id number] Author: Vesta Marin PSR Service: (none) Author Type: (none) Type: Progress Notes Filed: 06/09/2017 4:13 PM Note Text: Spoke with the patient and scheduled his Corotid Doppler on June 24, 2017 at 9:00 am Normal [facility] CNOVon 06-02-2017 CNOV Office Visit (AGCARDWST) -------ROBY FLORES ([id number]) 1935 MDate Time Provider Department06/02/17 9:00 AM DARRELL OLIVEIRA During your visit today, we recorded the following information about you: Pulse Blood pressure Weight 70/minute 116/67 79.5 kgDarrell Oliveira MD 06/02/2017 9:31 AM SignedPERTINENT CARDIAC HISTORYASHD - PCI LAD 2003HTNHLCarotid diseaseSyncopePAFADHERENCE TO GUIDELINESACE-I or ARB for HF with prior LVEFANDlt;40 (NQF 0081) - N/AASA or Plavix for ASHD (NQF 0067) - METBeta jazmin for ASHD with prior NM or prior LVEFANDlt;40 (NQF 0070) - N/ABeta jazmin for HF with prior LVEFANDlt;40 (NQF 0083) - N/AACE-I or ARB for ASHD with DM or prior LVEFANDlt;40 (NQF 0066) - N/AStatin therapy for ASHD or FHL or DM - METBMI documented and plan if ANDgt;25 (NQF 0421) - lifestyle recommendation formTobacco use screening and referral (NQF 0028) - lifestyle recommendation formRecommendation for whole food, plant based diet - lifestyle recommendation formCLINICAL IMPRESSION/PLAN:Roby Flores is doing well. His blood pressure is somewhat low. He wasadvised to decrease fosinopril to 20 milligrams daily and update me with vitalsigns in 2 weeks.He will be getting labs from the [facility] in the near future and I've askedfor a copy.INR has been within range. He is due today.I will see him in 8 months or as needed. If there is increased chest pain orrecurrent syncope, he has been advised to contact me.Written and verbal health teaching given to patient, patient verbalizesunderstanding and agrees with treatment plan.This note was generated using artandseek voice recognition system, and there may besome incorrect words, spellings, and punctuation that were not noted inchecking the note before saving.DIAGNOSIS FOR VISIT:ASHDHypertensionHISTOR Y OF PRESENT ILLNESSClshayne Flores returns for follow-up of multiple cardiac issues, as notedabove.He's had no further episodes of syncope. [facility] He denies chest pain. His exercise tolerance is stable. He's had noedema, palpitations, TIAs, amaurosis or claudication.He has been having some postural lightheadedness and his blood pressures athome have been in the 110 systolic range.ALLERGIES:ALLERGIESNo Known AllergiesCURRENT OUTPATIENT MEDICATIONS:simvastatin (ZOCOR) 80 mg tablet TAKE 0.5 TABLETS BY MOUTH DAILY AT BEDTIME.Fosinopril Sodium 40 mg tablet TAKE 1 TABLET BY MOUTH ONCE DAILY.warfarin (COUMADIN) 2.5 mg tablet Take 5mg, 2.5mg, 2.5 mg and repeat, or asdirectedsildenafil (VIAGRA) 100 mg tabletwarfarin (COUMADIN) 2 mg tablet Take 1 tablet by mouth once daily. Or asdirectedADULT ASPIRIN 81 MG CHEWABLE TAB Take one(1) tablet daily.PHYSICAL EXAMINATION:VITAL SIGNS: BP 116/67 Pulse 70 Wt 175 lb 3.2 oz (79.5kg)Chest: Clear to percussion and auscultation. Trachea is midline. Air entry isequal. Cardiac: Regular rhythm. S1 and S2 are normal. PMI is nondisplaced.There is a 2/6 aortic outflow murmur. This is early systolic.. Carotids arebrisk without bruits. JVP is less than 10 cm. Abdomen: Soft and nontender.There are no pulsatile masses or bruits. No liver enlargement. Bowel soundsare active. Extremities: No edema. Pulses are intact and symmetrical.EKG shows sinus rhythm with frequent atrial ectopics. There is no significantchange.Electronic ally Signed:Darrell Oliveira [facility] 2017 9:15 [facility]: Carmen Vasquez MD 06/02/2017 9:21 AM AddendumDecrease fosinopril to 1/2 tablet dailyCall with vital signs in 2 wksLIFESTYLE CHANGEA healthy lifestyle is the most important component of your overall treatmentplan. Please give serious thought to the following areas and commit to makinglong term changes.EAT A WHOLE FOOD, PLANT BASED DIETThe nutrition your body gets is more important than the medicine you take.What matters most is the overall way you eat. We encourage you to minimize theuse of animal products (which include dairy and all meats except fatty fish)and use whole, unprocessed plant foods to provide your protein, vitamins andother nutrients. We have a lot of information to share with you on this topic. We also hold Shared Medical Appointments, where you can come visit with in the company of other patients and spend over an hour talking aboutthe challenges of changing the way you eat. This is not a ANDquot;dietANDquot;.It is a way of life that you will keep with you.EXERCISE REGULARLYIt is not important to spend hours in the gym, lifting weights and perspiringheavily. A total of 2-3 hours per week of aerobic (causing you to bemoderately short of breath) exercise is sufficient to improve your health.Talk to us before you begin a new exercise program, if you have heart diseaseor experience shortness of breath or chest pain.REDUCE STRESSChronic emotional and physical stress leads to disease. Ways of reducingstress include meditation, visualization, prayer, yoga and other forms ofrelaxation therapy. Consistency is the carpio. Find a technique that works foryou and do it every day.CULTIVATE RELATIONSHIPSLoneliness and isolation have a major negative impact on health. Seek outothers who can love, care for and nurture you. Avoid hurtful relationships.MAINTAIN IDEAL BODY WEIGHTThe best way to do this is to do all the things above. Our bodies naturallyfind the right weight if we keep moving and feed ourselves the right food. Ifyour BMI is greater than 25, we strongly recommend a referral to a weightmanagement program. Please speak to us or your family physician aboutavailable programs.AVOID NICOTINE IN ALL FORMSThis includes all tobacco products, whether chewed, smoked, vaped, or rubbed onthe skin. Smoking cessation programs, which can make use of tobaccosubstitutes, medications to suppress cravings and behavior management, areavailable. Please contact your family physician about programs in your area.Vesta Marin PSR 06/09/2017 4:13 PM SignedSpoke with the patient and scheduled his Corotid Doppler on June 24, 2017 at9:00 amRefbrittani Provider: DARRELL OLIVEIRA [[id number]]Allergies As of Date: 06/02/2017(No Known Allergies)Date Reviewed: 06/02/2017Reviewed by: Kandi Breaux) Anabella - Fully AssessedReason for Visit: Recheck [92]Primary Visit Diagnosis:ASHD (arteriosclerotic heart disease) [I25.10] Other Visit Diagnosis:PAF (paroxysmal atrial fibrillation) ([facility]) [I48.0]Order(s):ECG B/O W INTERP (MED OFFICE) [ECG06] Order #: [id number] Fosinopril Sodium 40 mg tabletTake 1/2 tablet dailyDisp: Rfl:Prescriptions as of 06/02/2017 Sig: FOSINOPRIL 40 MG TABLET Take 1/2 tablet daily SIMVASTATIN 80 MG TABLET TAKE 0.5 TABLETS BY MOUTH BHANU* WARFARIN 2.5 MG TABLET Take 5mg, 2.5mg, 2.5 mg and r* SILDENAFIL 100 MG TABLET WARFARIN 2 MG TABLET Take 1 tablet by mouth once d* * ADULT ASPIRIN 81 MG CHEWABLE * Take one(1) tablet daily.Problem List As Of Date 06/02/2017 Noted Resolved BENIGN HYPERTENSION [I10] INVALID FOR* CORONARY ATHEROSCLER UNSPEC VESSEL [I25.10] INVALID FOR* 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 Please give serious thought to the following areas and commit to making [place] [facility] changes. EAT A WHOLE FOOD, PLANT BASED [...] your family physician about programs in your area.Prescriptions ordered this encounter Disp Refills Start End FOSINOPRIL 40 MG TABLET 90 t* 3 06/02/2017 06/02/2017 Class: Med Update Route: ORAL Sig: Take 1 tablet by mouth once daily. FOSINOPRIL 40 MG TABLET 06/02/2017 Class: Med Update Sig: Take 1/2 tablet dailyMedications Discontinued During This Encounter metoprolol tartrate, short acting, (* 09/26/2016 06/02/2017 Class: Med Update Route: ORAL Sig: Take 1 tablet by mouth twice daily. Disc: Reason for discontinue is not on file. Cosign accepted by STAS MORA MD[[id number]] on 09/30/2016 2:01 PM Fosinopril Sodium 40 mg tablet 90 t* 3 03/05/2017 06/02/2017 Sig: TAKE 1 TABLET BY MOUTH ONCE DAILY. Disc: Reason for discontinue is not on file. Fosinopril Sodium 40 mg tablet 90 t* 3 06/02/2017 06/02/2017 Class: Med Update Route: ORAL Sig: Take 1 tablet by mouth once daily. Disc: Reason for discontinue is not on file.Follow-up and Disposition History RecordedEncounter Number: [id number] Status:Closed by DARRELL OLIVEIRA MD on 06/02/17 Normal [facility] PROGRESSon 06-02-2017 PROGRESS HNO ID: [id number] thor: Darrell Stahl: (none)Author Type: PhysicianType: Progress NotesFiled: 06/02/2017 9:31 AMNote Text:PERTINENT CARDIAC HISTORYASHD - PCI LAD 2003HTNHLCarotid diseaseSyncopePAFADHERENCE TO GUIDELINESACE-I or ARB for HF with prior LVEF<40 (NQF 0081) - N/AASA or Plavix for ASHD (NQF 0067) - METBeta jazmin for ASHD with prior NM or prior LVEF<40 (NQF 0070) - N/ABeta jazmin for HF with prior LVEF<40 (NQF 0083) - N/AACE-I or ARB for ASHD with DM or prior LVEF<40 (NQF 0066) - N/AStatin therapy for ASHD or FHL or DM - METBMI documented and plan if >25 (NQF 0421) - lifestyle recommendation formTobacco use screening and referral (NQF 0028) - lifestyle recommendationformRecommenda tion for whole food, plant based diet - lifestyle recommendationformCLINICAL IMPRESSION/PLAN:Roby Flores is doing well. His blood pressure is somewhat low. Hewas advised to decrease fosinopril to 20 milligrams daily and update mewith vital signs in 2 weeks.He will be getting labs from the [facility] in the near future and I'veasked for a copy.INR has been within range. He is due today.I will see him in 8 months or as needed. If there is increased chest painor recurrent syncope, he has been advised to contact me.Written and verbal health teaching given to patient, patient verbalizesunderstanding and agrees with treatment plan.This note was generated using artandseek voice recognition system, and theremay be some incorrect words, spellings, and punctuation that were notnoted in checking the note before saving.DIAGNOSIS FOR VISIT:ASHDHypertensionHISTOR Y OF PRESENT ILLNESSClshayne Flores returns for follow-up of multiple cardiac issues, asnoted above.He's had no further episodes of syncope. [facility]. He denies chest pain. His exercise tolerance is stable. He'shad no edema, palpitations, TIAs, amaurosis or claudication.He has been having some postural lightheadedness and his blood pressuresat home have been in the 110 systolic range.ALLERGIES:ALLERGIESNo Known AllergiesCURRENT OUTPATIENT MEDICATIONS:simvastatin (ZOCOR) 80 mg tablet TAKE 0.5 TABLETS BY MOUTH DAILY ATBEDTIME.Fosinopril Sodium 40 mg tablet TAKE 1 TABLET BY MOUTH ONCE DAILY.warfarin (COUMADIN) 2.5 mg tablet Take 5mg, 2.5mg, 2.5 mg and repeat, oras directedsildenafil (VIAGRA) 100 mg tabletwarfarin (COUMADIN) 2 mg tablet Take 1 tablet by mouth once daily. Or asdirectedADULT ASPIRIN 81 MG CHEWABLE TAB Take one(1) tablet daily.PHYSICAL EXAMINATION:VITAL SIGNS: BP 116/67 Pulse 70 Wt 175 lb 3.2 oz (79.5kg)Chest: Clear to percussion and auscultation. Trachea is midline. Airentry is equal. Cardiac: Regular rhythm. S1 and S2 are normal. PMI isnondisplaced. There is a 2/6 aortic outflow murmur. This is earlysystolic.. Carotids are brisk without bruits. JVP is less than 10 cm.Abdomen: Soft and nontender. There are no pulsatile masses or bruits. Noliver enlargement. Bowel sounds are active. Extremities: No edema.Pulses are intact and symmetrical.EKG shows sinus rhythm with frequent atrial ectopics. There is nosignificant change.Electronically Signed:Darrell Oliveira, [facility] 2017 9:15 [facility]: Stas Mora MD [facility] OBSOLETEon 03-02-2017 OBSOLETE Refill (AGCARDWST) -------ROB[facility] FLORES ([id number]) 1935 [facility] Ssacgngszs01/11/17 DARRELL OLIVEIRA AGCARDWST During your visit today, we recorded the following information about you:Darrell Oliveira MD 03/02/2017 12:36 PM SignedThe following approved medication requests have been transmitted electronically.Signed Prescriptions Disp Refills warfarin (COUMADIN) 2.5 mg tablet 100 tablet 11 Sig: Take 1 tablet by mouth once daily. Or as directed MESFIN: No Authorizing Provider: DARRELL OLIVEIRA MDAmanda Caskey, MA 03/02/2017 2:47 PM SignedPharmacy called stating that directions needs to be different in order to getmedication to be approved for more tablets.Pended a new script.Chuy De Leon MA 03/02/2017 2:47 PM SignedAddended by: ELANA HOOD MA on: 03/02/2017 02:47 PM Modules accepted: More Oliveira MD 03/02/2017 3:14 PM SignedPended order makes no sense. This would be 2 tablets a weekErmias Awad MA 03/02/2017 3:19 PM SignedDirections changed, please check.Chuy De Leon MA 03/02/2017 3:19 PM SignedAddended by: ELANA HOOD MA on: 03/02/2017 03:19 PM Modules accepted: More Oliveira MD 03/02/2017 4:14 PM SignedThe following approved medication requests have been transmitted electronically.Signed Prescriptions Disp Refills warfarin (COUMADIN) 2.5 mg tablet 60 tablet 11 Sig: Take 5mg, 2.5mg, 2.5 mg and repeat, or as directed MESFIN: No Authorizing Provider: DARRELL OLIVEIRA MDKenneth E. Shafer, MD 03/02/2017 4:14 PM SignedAddended by: DARRELL OLIVEIRA MD on: 03/02/2017 04:14 PM Modules accepted: OrdersAllergies As of Date: 03/02/2017(No Known Allergies)Date Reviewed: 12/01/2016Reviewed by: Yesenia Oro Ma - Fully AssessedReason for Visit: Refill Request [94]Order(s):warfarin (COUMADIN) 2.5 mg tabletTake 5mg, 2.5mg, 2.5 mg and repeat, or as directedDisp: 60 tabletRfl: 11Prescriptions as of 03/02/2017 Sig: WARFARIN 2.5 MG TABLET Take 5mg, 2.5mg, 2.5 mg and r* SILDENAFIL 100 MG TABLET METOPROLOL TARTRATE 25 MG TAB* Take 1 tablet by mouth twice * WARFARIN 2 MG TABLET Take 1 tablet by mouth once d* SIMVASTATIN 80 MG TABLET Take 0.5 tablets by mouth bhanu* FOSINOPRIL 40 MG TABLET Take 1 tablet by mouth once d* * ADULT ASPIRIN 81 MG CHEWABLE * Take one(1) tablet daily.Problem List As Of Date 03/02/2017 Noted Resolved BENIGN HYPERTENSION [I10] INVALID FOR* CORONARY ATHEROSCLER UNSPEC VESSEL [I25.10] INVALID FOR* 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 Or as directed WARFARIN 2.5 MG TABLET 60 t* 11 03/02/2017 Sig: Take 5mg, 2.5mg, 2.5 mg and repeat, or as directedMedications Discontinued During This Encounter warfarin (COUMADIN) 2.5 mg tablet 45 t* 01/23/2017 03/02/2017 Route: ORAL Sig: Take 1 tablet by mouth daily as directed. Disc: Reason for discontinue is not on file. warfarin (COUMADIN) 2.5 mg tablet 100 * 11 03/02/2017 03/02/2017 Route: ORAL Sig: Take 1 tablet by mouth once daily. Or as directed Disc: Reason for discontinue is not on file. Status:Closed by ELANA HOOD MA on 03/02/17 [facility] OBSOLETEon 01-23-2017 OBSOLETE Refill (AGCARDWST) -------ROBY FLORES ([id number]) 1935 MDate Time Provider Ngdaxrlngw57/3/17 DARRELL OLIVEIRA AGCARDWST During your visit today, we recorded the following information about you:Dao Bishop RN, RN 01/23/2017 3:15 PM SignedPatient phones requesting refills as follows:Pending Prescriptions Disp Refills WARFARIN 2.5 MG TABLET 45 tablet 11 Sig: Take 1 tablet by mouth daily as directed. Currently taking cycle io5zs-9.5mg-2.5mg repeat MESFIN: No Please review and advise.Mahesh Carpenter has been identified by name and date of : YesRX INSTRUCTIONS:Patient aware RX will be sent to pharmacy. No need to notify patient.Arthur Carpenter MD 01/23/2017 4:30 PM SignedThe following approved medication requests have been transmitted electronically.Signed Prescriptions Disp Refills warfarin (COUMADIN) 2.5 mg tablet 45 tablet 11 Sig: Take 1 tablet by mouth daily as directed. MESFIN: No Authorizing Provider: DARRELL OLIVEIRA MDAdam Gilmor, RN, RN 01/23/2017 5:08 PM Signedescript confirmedAllergies As of Date: 01/23/2017(No Known Allergies)Date Reviewed: 12/01/2016Reviewed by: Yesenia Oro Ma - Fully AssessedReason for Visit: Refill Request [94]Order(s):warfarin (COUMADIN) 2.5 mg tabletTake 1 tablet by mouth daily as directed.Disp: 45 tabletRfl: 11Prescriptions as of 01/23/2017 Sig: WARFARIN 2.5 MG TABLET Take 1 tablet by mouth daily * SILDENAFIL 100 MG TABLET METOPROLOL TARTRATE 25 MG TAB* Take 1 tablet by mouth twice * WARFARIN 2 MG TABLET Take 1 tablet by mouth once d* SIMVASTATIN 80 MG TABLET Take 0.5 tablets by mouth bhanu* FOSINOPRIL 40 MG TABLET Take 1 tablet by mouth once d* * ADULT ASPIRIN 81 MG CHEWABLE * Take one(1) tablet daily.Problem List As Of Date 01/23/2017 Noted Resolved BENIGN HYPERTENSION [I10] INVALID FOR* CORONARY ATHEROSCLER UNSPEC VESSEL [I25.10] INVALID FOR* 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 Disc: Reason for discontinue is not on file. Status:Closed by DAO BISHOP on 01/23/17 Normal [facility] Vital Signs Date Time Vital Sign Value Performing Clinician Facility 09-01-2024 11:00-0400 Diastolic blood pressure 79 mm[Hg] Dr. Stas Mora MD Work Phone: [facility] 09-01-2024 11:00-0400 Heart rate 70 /min Dr. Stas Mora MD Work Phone: [facility] 09-01-2024 11:00-0400 Respiratory rate 18 /min Dr. Stas Mora MD Work Phone: [facility] 09-01-2024 11:00-0400 SaO2% (BldA) [Mass fraction] 98 % Dr. Stas Mora MD Work Phone: [facility] 09-01-2024 11:00-0400 Systolic blood pressure 180 mm[Hg] Dr. Stas Mora MD Work Phone: [facility] 09-01-2024 09:52-0400 Body temperature 98.9 [degF] Dr. Stas Mora MD Work Phone: [facility] 09-01-2024 07:31-0400 Body height 182.[address] Stas Mora MD Work Phone: [facility] 09-01-2024 07:31-0400 Body mass index (BMI) [Ratio] 23.4 kg/m2 Dr. Stas Mora MD Work Phone: [facility] 09-01-2024 07:31-0400 Body weight 78.[address] Stas Mora MD Work Phone: [facility] 08-31-2024 11:05-0400 Body mass index (BMI) [Ratio] 22.35 kg/m2 Luciana Cisneros MD Work Phone: [facility] 08-31-2024 11:05-0400 Body weight 73.94 kg Luciana Cisneros MD Work Phone: [facility] 08-31-2024 11:05-0400 Diastolic blood pressure 74 mm[Hg] Luciana Cisneros MD Work Phone: [facility] 08-31-2024 11:05-0400 Heart rate 74 /min Luciana Cisneros MD Work Phone: [facility] 08-31-2024 11:05-0400 Respiratory rate 12 /min Luciana Cisneros MD Work Phone: [facility] 08-31-2024 11:05-0400 SaO2% (BldA) [Mass fraction] 98 % Luciana Cisneros MD Work Phone: [facility] 08-31-2024 11:05-0400 Systolic blood pressure 124 mm[Hg] Luciana Cisneros MD Work Phone: [facility] 07-28-2024 11:12-0400 Diastolic blood pressure 78 mm[Hg] Stas Mora MD Work Phone: [facility] 07-28-2024 11:12-0400 Systolic blood pressure 136 mm[Hg] Stas Mora MD Work Phone: [facility] 07-28-2024 11:10-0400 Body mass index (BMI) [Ratio] 22.4 kg/m2 Stas Mora MD Work Phone: [facility] 07-28-2024 11:10-0400 Body weight 74.1 kg Stas Mora MD Work Phone: [facility] 07-28-2024 11:10-0400 Heart rate 56 /min Stas Mora MD Work Phone: [facility] 07-28-2024 11:10-0400 Respiratory rate 16 /min Stas Mora MD Work Phone: [facility] 06-01-2024 14:52-0400 Body height 181.9 cm Luciana Cisneros MD Work Phone: [facility] 06-01-2024 14:52-0400 Body mass index (BMI) [Ratio] 22.33 kg/m2 Luciana Cisneros MD Work Phone: [facility] 06-01-2024 14:52-0400 Body weight 73.85 kg Luciana Cisneros MD Work Phone: [facility] 06-01-2024 14:52-0400 Diastolic blood pressure 60 mm[Hg] Luciana Cisneros MD Work Phone: [facility] 06-01-2024 14:52-0400 Heart rate 46 /min Luciana Cisneros MD Work Phone: [facility] 06-01-2024 14:52-0400 SaO2% (BldA) [Mass fraction] 98 % Luciana Cisneros MD Work Phone: [facility] 06-01-2024 14:52-0400 Systolic blood pressure 132 mm[Hg] Luciana Cisneros MD Work Phone: [facility] 05-26-2024 09:18-0500 Diastolic blood pressure 82 mm[Hg] Stas Mora MD Work Phone: [facility] 05-26-2024 09:18-0500 Systolic blood pressure 144 mm[Hg] Stas Mora MD Work Phone: [facility] 05-26-2024 09:06-0500 Body mass index (BMI) [Ratio] 22.19 kg/m2 Stas Mora MD Work Phone: [facility] 05-26-2024 09:06-0500 Body weight 73.5 kg Stas Mora MD Work Phone: [facility] 05-26-2024 09:06-0500 Heart rate 56 /min Stas Mora MD Work Phone: [facility] 05-26-2024 09:06-0500 Respiratory rate 18 /min Stas Mora MD Work Phone: [facility] 04-27-2024 09:34-0500 Body height 182 cm Luciana Cisneros MD Work Phone: [facility] 04-27-2024 09:34-0500 Body mass index (BMI) [Ratio] 22.51 kg/m2 Luciana Cisneros MD Work Phone: [facility] 04-27-2024 09:34-0500 Body weight 74.57 kg Luciana Cisneros MD Work Phone: [facility] 04-27-2024 09:34-0500 Diastolic blood pressure 62 mm[Hg] Luciana Cisneros MD Work Phone: [facility] 04-27-2024 09:34-0500 Heart rate 60 /min Luciana Cisneros MD Work Phone: [facility] 04-27-2024 09:34-0500 SaO2% (BldA) [Mass fraction] 98 % Luciana Cisneros MD Work Phone: [facility] 04-27-2024 09:34-0500 Systolic blood pressure 110 mm[Hg] Luciana Cisneros MD Work Phone: [facility] 11-26-2023 10:33-0400 Diastolic blood pressure 80 mm[Hg] Stas Mora MD Work Phone: [facility] 11-26-2023 10:33-0400 Systolic blood pressure 144 mm[Hg] Stas Mora MD Work Phone: [facility] 11-26-2023 10:22-0400 Body mass index (BMI) [Ratio] 21.95 kg/m2 Stas Mora MD Work Phone: [facility] 11-26-2023 10:22-0400 Body weight 71.4 kg Stas Mora MD Work Phone: [facility] 11-26-2023 10:22-0400 Heart rate 60 /min Stas Mora MD Work Phone: [facility] 11-26-2023 10:22-0400 Respiratory rate 18 /min Stas Mora MD Work Phone: [facility] 09-15-2023 08:38-0400 Body mass index (BMI) [Ratio] 24.52 kg/m2 Stas Mora MD Work Phone: [facility] 09-15-2023 08:38-0400 Body weight 79.74 kg Stas Mora MD Work Phone: [facility] 09-15-2023 08:38-0400 Diastolic blood pressure 84 mm[Hg] Stas Mora MD Work Phone: [facility] 09-15-2023 08:38-0400 Heart rate 76 /min Stas Mora MD Work Phone: [facility] 09-15-2023 08:38-0400 Respiratory rate 18 /min Stas Mora MD Work Phone: [facility] 09-15-2023 08:38-0400 Systolic blood pressure 138 mm[Hg] Stas Mora MD Work Phone: [facility] 08-14-2023 09:57-0400 Body mass index (BMI) [Ratio] 22.59 kg/m2 Stas Mora MD Work Phone: [facility] 08-14-2023 09:57-0400 Body weight 73.48 kg Stas Mora MD Work Phone: [facility] 08-14-2023 09:57-0400 Diastolic blood pressure 80 mm[Hg] Stas Mora MD Work Phone: [facility] 08-14-2023 09:57-0400 Heart rate 64 /min Stas Mora MD Work Phone: [facility] 08-14-2023 09:57-0400 Respiratory rate 14 /min Stas Mora MD Work Phone: [facility] 08-14-2023 09:57-0400 Systolic blood pressure 140 mm[Hg] Stas Mora MD Work Phone: [facility] 06-01-2023 15:08-0400 Body weight 75.75 kg Stas Mora MD Work Phone: [facility] 06-01-2023 15:08-0400 Diastolic blood pressure 90 mm[Hg] Stas Mora MD Work Phone: [facility] 06-01-2023 15:08-0400 Heart rate 82 /min Stas Mora MD Work Phone: [facility] 06-01-2023 15:08-0400 Respiratory rate 16 /min Stas Mora MD Work Phone: [facility] 06-01-2023 15:08-0400 SaO2% (BldA) [Mass fraction] 100 % Stas Mora MD Work Phone: [facility] 06-01-2023 15:08-0400 Systolic blood pressure 140 mm[Hg] Stas Mora MD Work Phone: [facility] 02-16-2023 13:57-0500 Diastolic blood pressure 62 mm[Hg] Stas Mora MD Work Phone: [facility] 02-16-2023 13:57-0500 Heart rate 62 /min Stas Mora MD Work Phone: [facility] 02-16-2023 13:57-0500 Respiratory rate 16 /min Stas Mora MD Work Phone: [facility] 02-16-2023 13:57-0500 Systolic blood pressure 110 mm[Hg] Stas Mora MD Work Phone: [facility] 02-10-2023 16:59-0500 Diastolic blood pressure 68 mm[Hg] [facility] 02-10-2023 16:59-0500 Heart rate 79 /min [facility] 02-10-2023 16:59-0500 Respiratory rate 12 /min [facility] 02-10-2023 16:59-0500 SaO2% (BldA) [Mass fraction] 98 % [facility] 02-10-2023 16:59-0500 Systolic blood pressure 153 mm[Hg] [facility] 02-10-2023 14:37-0500 Body mass index (BMI) [Ratio] 22.1 kg/m2 [facility] 02-10-2023 14:37-0500 Body weight 74.3 kg [facility] 02-10-2023 14:32-0500 Body height 182.88 cm [facility] 02-10-2023 14:32-0500 Body temperature 98 [degF] [facility] 11-17-2022 17:22-0400 Diastolic Blood Pressure Non-Invasive 68 1 STERLING LYNCH DO [facility] 11-17-2022 17:22-0400 Heart rate 76 /min STERLING LYNCH DO [facility] 11-17-2022 17:22-0400 Respiratory rate 18 /min STERLING LYNCH DO [facility] 11-17-2022 17:22-0400 Systolic Blood Pressure Non-Invasive 126 1 STERLING LYNCH DO [facility] 11-17-2022 15:23-0400 Body height 185.4 cm STERLING LYNCH DO [facility] 11-17-2022 15:23-0400 Body temperature 97.88 [degF] STERLING DAIGLET DO [facility] 11-17-2022 15:23-0400 Body weight 79.6 kg STERLING LYNCH DO [facility] 11-17-2022 15:23-0400 Diastolic Blood Pressure Non-Invasive 70 1 STERLING LYNCH DO [facility] 11-17-2022 15:23-0400 Heart rate 89 /min STERLING LYNCH DO [facility] 11-17-2022 15:23-0400 Respiratory rate 18 /min STERLING LYNCH DO [facility] 11-17-2022 15:23-0400 Systolic Blood Pressure Non-Invasive 134 1 STERLING LYNCH DO [facility] 08-26-2022 13:12-0400 Body height 180.3 cm Stas Mora MD Work Phone: [facility] 08-26-2022 13:12-0400 Body weight 78.74 kg Stas Mora MD Work Phone: [facility] 08-26-2022 13:12-0400 Diastolic blood pressure 74 mm[Hg] Stas Mora MD Work Phone: [facility] 08-26-2022 13:12-0400 Heart rate 66 /min Stas Mora MD Work Phone: [facility] 08-26-2022 13:12-0400 Respiratory rate 16 /min Stas Mora MD Work Phone: [facility] 08-26-2022 13:12-0400 Systolic blood pressure 122 mm[Hg] Stas Mora MD Work Phone: [facility] 12-26-2021 11:22-0400 Body weight 78.56 kg Stas Mora MD Work Phone: [facility] 12-26-2021 11:22-0400 Diastolic blood pressure 80 mm[Hg] Stas Mora MD Work Phone: [facility] 12-26-2021 11:22-0400 Heart rate 58 /min Stas Mora MD Work Phone: [facility] 12-26-2021 11:22-0400 Respiratory rate 16 /min Stas Mora MD Work Phone: [facility] 12-26-2021 11:22-0400 Systolic blood pressure 142 mm[Hg] Stas Mora MD Work Phone: [facility] 12-22-2021 11:13-0400 Body temperature 97.6 [degF] Dr. Stas Mora Work Phone: [facility] Work Phone: 12-22-2021 11:13-0400 Diastolic blood pressure 58 mm[Hg] Dr. Stas Mora Work Phone: [facility] Work Phone: 12-22-2021 11:13-0400 Heart rate 63 /min Dr. Stas Mora Work Phone: [facility] Work Phone: 12-22-2021 11:13-0400 Respiratory rate 16 /min Dr. Stas Mora Work Phone: [facility] Work Phone: 12-22-2021 11:13-0400 SaO2% (BldA) [Mass fraction] 96 % Dr. Stas Mora Work Phone: [facility] Work Phone: 12-22-2021 11:13-0400 Systolic blood pressure 142 mm[Hg] Dr. Stas Mora Work Phone: [facility] Work Phone: 12-21-2021 20:06-0400 Body height 182.[address] Stas Mora Work Phone: [facility] Work Phone: 12-21-2021 20:06-0400 Body mass index (BMI) [Ratio] 22.6 kg/m2 Dr. Stas Mora Work Phone: [facility] Work Phone: 12-21-2021 20:06-0400 Body weight 75.[address] Stas Mora Work Phone: [facility] Work Phone: 12-21-2021 19:15-0400 Diastolic blood pressure 81 mm[Hg] [facility] Work Phone: 12-21-2021 19:15-0400 Heart rate 70 /min [facility] Work Phone: 12-21-2021 19:15-0400 Respiratory rate 18 /min [facility] Work Phone: 12-21-2021 19:15-0400 SaO2% (BldA) [Mass fraction] 96 % [facility] Work Phone: 12-21-2021 19:15-0400 Systolic blood pressure 171 mm[Hg] [facility] Work Phone: 12-21-2021 19:02-0400 Body temperature 97.6 [degF] [facility] Work Phone: 12-21-2021 18:17-0400 Body height 182.88 cm [facility] Work Phone: 12-21-2021 18:17-0400 Body mass index (BMI) [Ratio] 24.2 kg/m2 [facility] Work Phone: 12-21-2021 18:17-0400 Body weight 80.9 kg [facility] Work Phone: 09-05-2021 11:21-0400 Body height 182.9 cm Stas Mora MD Work Phone: [facility] 09-05-2021 11:21-0400 Body weight 80.2 kg Stas Mora MD Work Phone: [facility] 09-05-2021 11:21-0400 Diastolic blood pressure 70 mm[Hg] Stas Mora MD Work Phone: [facility] 09-05-2021 11:21-0400 Heart rate 62 /min Stas Mora MD Work Phone: [facility] 09-05-2021 11:21-0400 Respiratory rate 16 /min Stas Mora MD Work Phone: [facility] 09-05-2021 11:21-0400 Systolic blood pressure 136 mm[Hg] Stas Mora MD Work Phone: [facility] 07-08-2021 10:41-0400 Body weight 83.55 kg Stas Mora MD Work Phone: [facility] 07-08-2021 10:41-0400 Diastolic blood pressure 78 mm[Hg] Stas Mora MD Work Phone: [facility] 07-08-2021 10:41-0400 Heart rate 60 /min Stas Mora MD Work Phone: [facility] 07-08-2021 10:41-0400 Respiratory rate 16 /min Stas Mora MD Work Phone: [facility] 07-08-2021 10:41-0400 Systolic blood pressure 120 mm[Hg] Stas Mora MD Work Phone: [facility] Encounters Encounter Date Encounter Type Care Provider Facility Start: 09-01-2024 End: 09-01-2024 Telephone encounter Kandi Petego [facility] Work Phone: [facility] Comment on above: Medication Problem ( Cost) Start: 09-01-2024 Evaluation and management of inpatient Dr. Kathy Wells MD -[facility] 3 Work Phone: Start: 09-01-[address] Stas Mora MD Work Phone: [facility] Work Phone: Start: 08-31-2024 End: 08-31-2024 Telephone encounter Coretta Jalloh [facility] Comment on above: Anticoagulation Tele phone Fu (Home INR result ) Start: 08-31-2024 End: 08-31-2024 Office outpatient visit 25 minutes Luciana Cisneros MD Work Phone: Geriatrics Comment on above: Moderate dementia wi thout behavioral disturbance, psychotic disturbance, mood disturbance, or anxiety, unspecified dementia type (HCC) (Primary Dx); Hallucinations; Screening for depression; Encounter for screening examination for other mental health and behavioral disorders Start: 08-03-2024 End: 08-03-2024 Telephone encounter Coretta [facility] [facility] Comment on above: Anticoagulation Tele phone Fu (Lab INR result) Start: 08-03-2024 End: 08-03-[address] Start: 07-28-2024 End: 07-28-2024 Office outpatient visit 15 minutes Stas Mora MD Work Phone: [facility] Comment on above: Bursitis of right el bow, unspecified bursa (Primary Dx) Start: 07-28-2024 End: 07-28-2024 ambulatory STAS MORA Facility:[facility] Start: 07-06-2024 End: 07-06-2024 Telephone encounter Coretta Jalloh [facility] Comment on above: Anticoagulation Tele phone Fu (Lab INR result ) Start: 07-06-2024 End: 07-06-2024 ambulatory STAS MORA Facility:[facility] Start: 06-29-2024 End: 06-29-2024 Telephone encounter Coretta Jalloh [facility] Comment on above: Anticoagulation Tele phone Fu (Lab INR result ) Start: 06-29-2024 End: 06-29-2024 ambulatory STAS MORA Facility:[facility] Start: 06-01-2024 End: 06-01-2024 Office consultation new/estab patient 80 min Luciana Cisneros MD Work Phone: Geriatrics Comment on above: Mixed dementia (HCC) (Primary Dx); Vascular parkinsonism (HCC) Start: 06-01-2024 End: 06-01-[address] [facility] Start: 06-01-2024 End: 08-01-2024 Follow-up encounter Luciana Cisneros MD Work Phone: Geriatrics Start: 05-26-2024 End: 05-26-2024 Telephone encounter Luciana Cisneros MD Work Phone: Geriatrics Comment on above: Appointment (Resched ule for geriatric f/u) Start: 05-26-2024 End: 05-26-[address] [facility] Start: 05-26-2024 End: 05-26-2024 Patient encounter procedure Stas Mora MD Work Phone: [facility] [place] Comment on above: Essential hypertensi on, benign (Primary Dx); Hyperlipidemia, unspecified hyperlipidemia type; Atherosclerosis 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, unspecified vessel or lesion type, unspecified whether pauma or transplanted heart; Paroxysmal atrial fibrillation (HCC); Edema of both lower legs; History of stroke with residual effects; Dementia, unspecified dementia severity, unspecified dementia type, unspecified whether behavioral, psychotic, or mood disturbance or anxiety (HCC) Start: 05-25-2024 End: 05-25-2024 Telephone encounter Paige Hickman [facility] Comment on above: Anticoagulation Tele phone Fu (Lab INR Result ) Start: 05-25-2024 End: 05-25-2024 ambulatory STAS MORA Facility:[facility] Start: 05-23-2024 ambulatory ULCIANA CISNEROS Facility :[id number] Start: 05-23-2024 End: 05-23-2024 Subsequent hospital visit by physician [facility] Work Phone: [facility] Comment on above: Cognitive impairment , mild, 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] Start: 04-28-2024 End: 04-29-2024 Telephone encounter Stas Mora MD Work Phone: Internal Medicine [place] Comment on above: Results Start: 04-27-2024 End: 04-27-2024 Telephone encounter Coretta Jalloh [facility] Comment on above: Anticoagulation Tele phone Fu (Lab INR result ) Start: 04-27-2024 End: 04-27-2024 ambulatory STAS MORA Facility:[facility] Start: 04-27-2024 End: 04-27-2024 Assmt & care planning pt w/cognitive impairment Luciana Cisneros MD Work Phone: Geriatrics Comment on above: Dementia, unspecifie d dementia severity, unspecified dementia type, unspecified whether behavioral, psychotic, or mood disturbance or anxiety (HCC) (Primary Dx); Cognitive impairment; Cognitive impairment, mild, so stated; Shuffling gait; Ambulatory dysfunction; Balance disorder Start: 04-27-2024 End: 04-27-2024 ambulatory STAS MORA Facility:[facility] Start: 04-25-2024 End: 04-25-2024 Telephone encounter Stas Mora MD Work Phone: Family Medicine [place] Comment on above: memory issues Start: 04-13-2024 End: 04-13-2024 [facility] Comment on above: Anticoagulation Tele phone Fu (Home INR result ) Start: 04-13-2024 End: 04-13-2024 ambulatory STAS MORA Facility:[facility] Start: 03-30-2024 End: 03-30-2024 Telephone encounter Coretta Jalloh [facility] Comment on above: Anticoagulation Tele phone Fu (Lab INR result ) Start: 03-30-2024 End: 03-30-2024 ambulatory [facility] Start: 03-17-2024 End: 03-17-2024 Telephone encounter Josy Gandhi [facility] Comment on above: Anticoagulation Tele phone Fu (Lab INR result ) Start: 03-17-2024 End: 03-17-2024 ambulatory STAS MORA Facility:[facility] Start: 03-03-2024 End: 03-03-2024 Telephone encounter Elise Paredes [facility] Comment on above: Anticoagulation Tele phone Fu (Lab INR result) Start: 03-03-2024 End: 03-03-2024 ambulatory [facility] Facility:[facility] Start: 02-10-2024 End: 02-10-2024 Telephone encounter Coretta Jalloh [facility] Comment on above: Anticoagulation Tele phone Fu (Lab INR result ) Start: 02-10-2024 End: 02-10-2024 ambulatory [facility] Facility:[facility] Start: 01-20-2024 End: 01-20-2024 Telephone encounter Coretta Jalloh [facility] Comment on above: Anticoagulation Tele phone Fu (Lab INR results ) Start: 01-20-2024 End: 01-20-2024 ambulatory [facility] Facility:[facility] Start: 01-04-2024 End: 01-04-2024 Telephone encounter Stas Mora MD Work Phone: [facility] Comment on above: Medication Request Start: 12-24-2023 End: 12-24-2023 Telephone encounter Elise Paredes [facility] Comment on above: Anticoagulation Tele phone Fu (Lab INR) Start: 12-23-2023 End: 12-23-2023 ambulatory STAS MORA Facility:[facility] Start: 12-10-2023 End: 12-10-2023 Telephone encounter Elise Paredes [facility] Comment on above: Anticoagulation Tele phone Fu (Lab INR) Start: 12-09-2023 End: 12-09-2023 ambulatory [facility] Facility:[facility] Start: 11-26-2023 End: 11-26-2023 Telephone encounter Elise Paredes [facility] Comment on above: Anticoagulation Tele phone Fu (Lab INR) Start: 11-26-2023 End: 11-26-2023 ambulatory [facility] Facility:[facility] Start: 11-26-2023 End: 11-26-2023 Patient encounter procedure Stas Mora MD Work Phone: [facility] [place] Comment on above: Essential hypertensi on, benign (Primary Dx); Hyperlipidemia, unspecified hyperlipidemia type; Edema of both lower legs; Paroxysmal atrial fibrillation (HCC); History of stroke with residual effects; 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, psychotic disturbance, mood disturbance, or anxiety (HCC); Urinary frequency; Abnormal CBC Start: 11-18-2023 End: 11-18-2023 Telephone encounter Coretta Jalloh [facility] Comment on above: Anticoagulation Tele phone Fu (Home INR) Start: 11-18-2023 End: 11-18-2023 ambulatory STAS MORA Facility:[facility] Start: 11-16-2023 End: 11-16-2023 Refill Stas Mora MD Work Phone: [facility] [place] Comment on above: Refill Request Start: 10-14-2023 Telephone encounter [facility] Comment on above: Anticoagulation Tele phone Fu (Home INR results ) Start: 10-14-2023 End: 10-14-2023 ambulatory STAS MORA Facility:[facility] Start: 09-16-2023 Telephone encounter Colleen Stout [facility] Comment on above: Anticoagulation Tele phone Fu Start: 09-16-2023 End: 09-16-2023 ambulatory STAS MORA Facility:[facility] Start: 09-15-2023 End: 09-15-2023 ambulatory ST[facility] Tre[facility] Start: 09-15-2023 End: 09-15-2023 Patient encounter procedure Stas Mora MD Work Phone: [facility] [place] Comment on above: Edema of both lower legs (Primary Dx) Start: 09-14-2023 End: 09-14-2023 ambulatory Nurse Intm/Famp Triage [facility] Work Phone: Nurse Phone Triage Comment on above: Leg swelling Start: 09-02-2023 Telephone encounter [facility] Comment on above: Anticoagulation Tele phone Fu (Lab INR results) Start: 09-02-2023 End: 09-02-2023 ambulatory [facility] Facility:[facility] Start: 08-26-2023 Telephone encounter [facility] Comment on above: Anticoagulation Tele phone Fu (Lab INR results ) Start: 08-26-2023 End: 08-26-2023 ambulatory [facility] Facility:[facility] Start: 08-19-2023 Telephone encounter [facility] Comment on above: Anticoagulation Tele phone Fu (Lab INR) Start: 08-19-2023 End: 08-19-2023 ambulatory [facility] Facility:[facility] Start: 08-14-2023 End: 08-14-2023 ambulatory [facility] Facility:[facility] Start: 08-14-2023 End: 08-14-2023 Patient encounter procedure Stas Mora MD Work Phone: [facility] Comment on above: Moderate vascular de mentia without behavioral disturbance, psychotic disturbance, mood disturbance, or anxiety (HCC) (Primary Dx); Essential hypertension, benign; Paroxysmal atrial fibrillation (HCC) Start: 08-12-2023 Telephone encounter [facility]ta [facility] Comment on above: Anticoagulation Tele phone Fu (Home INR results ) Start: 08-12-2023 End: 08-12-2023 ambulatory [facility] Facility:[facility] Start: 08-06-2023 ambulatory PAYTON IBANEZ DO Facil ity:A Start: 08-05-2023 Telephone encounter [facility] Comment on above: Anticoagulation Tele phone Fu (Home INR results ) Start: 07-29-2023 Telephone encounter [facility] Comment on above: Anticoagulation Foll ow Up Start: 07-22-2023 Telephone encounter [facility]ta [facility] Comment on above: Anticoagulation Tele phone Fu (Lab INR results ) Start: 07-16-2023 Refill Elvis RASHID RN.SHIRT FOLDING MACHINE OPERATOR Work Phone: [facility] Comment on above: Refill Request Start: 07-15-2023 Telephone encounter [facility]ta [facility] Comment on above: Anticoagulation Tele phone Fu (Lab INR results ) Start: 07-08-2023 Telephone encounter [facility]ta [facility] Comment on above: Anticoagulation Tele phone Fu (Lab INR ) Start: 07-02-2023 Telephone encounter [facility]ta [facility] Comment on above: Opened In Error Start: 07-01-2023 Telephone encounter [facility]ta [facility] Comment on above: Anticoagulation Tele phone Fu (Home INR ) Start: 06-25-2023 End: 04-13-2024 Telephone encounter [facility] Comment on above: Patient Update Start: 06-24-2023 Telephone encounter Jerzy Easton MD Work Phone: [facility] [place] Comment on above: Anticoagulation Start: 06-11-2023 Telephone encounter Stas miranda MD Work Phone: [facility] [place] Comment on above: Anticoagulation Start: 06-08-2023 Telephone encounter Jenna Armenta nhof SENIOR TECHNICAL RECRUITER.SHIRT FOLDING MACHINE OPERATOR Work Phone: [facility] [place] Comment on above: Erroneous encounter- disregard Anticoagulation Start: 06-05-2023 Telephone encounter Jennaligia Armenta nhof SENIOR TECHNICAL RECRUITER.SHIRT FOLDING MACHINE OPERATOR Work Phone: [facility] [place] Comment on above: Results (Labs, Criti cleopatra ) Start: 06-04-2023 ambulatory Hortencia Winston RN NURSE O N CALL Comment on above: Results, Lab High Protime and INR Start: 06-04-2023 E-mail encounter fro m caregiver Jasmin Bell MD Work Phone: [facility] [place] Start: 06-04-2023 Telephone encounter Jenna Armenta nhof SENIOR TECHNICAL RECRUITER.SHIRT FOLDING MACHINE OPERATOR Work Phone: [facility] [place] Comment on above: Results; Orders (Lab s ) Start: 06-03-2023 Telephone encounter [facility]oretta [facility] Comment on above: Anticoagulation Tele phone Fu (Lab INR results ) Start: 06-01-2023 End: 06-01-2023 Patient encounter procedure Stas Mora MD Work Phone: [facility] [place] Comment on above: Essential hypertensi on, benign (Primary Dx); Paroxysmal atrial fibrillation (HCC); Atherosclerosis 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, unspecified vessel or lesion type, unspecified whether pauma or transplanted heart; Hyperlipidemia, unspecified hyperlipidemia type; History of stroke with residual effects; Speech disturbance, unspecified type Start: 05-27-2023 Telephone encounter [facility]ta [facility] Comment on above: Anticoagulation Tele phone Fu (Lab INR results ) Start: 05-20-2023 Telephone encounter [facility]ta [facility] Comment on above: Anticoagulation Tele phone Fu (Home INR results) Start: 05-13-2023 Telephone encounter Senia Alan [facility] Comment on above: Anticoagulation Tele phone Fu (INR Lab Result) Start: 05-06-2023 Telephone encounter [facility]ta [facility] Comment on above: Anticoagulation Tele phone Fu (Lab INR results ) Start: 04-29-2023 Telephone encounter [facility]ta [facility] Comment on above: Anticoagulation Tele phone Fu (Home INR results ) Start: 02-20-2023 Telephone encounter Elise Paredes [facility] Comment on above: Anticoagulation Tele phone Fu (Lab INR) Start: 02-17-2023 Telephone encounter Stas miranda MD Work Phone: [facility] [place] Comment on above: Results Start: 02-17-2023 End: 02-17-2023 Subsequent hospital visit by physician Mri Radio [facility] (I-Stat/1.5t) Work Phone: Radiology Comment on above: Cerebral infarction, unspecified mechanism (HCC) [I63.9] Start: 02-16-2023 End: 02-16-2023 Patient encounter procedure Stas Mora MD Work Phone: Family [facility] [place] Comment on above: Cerebral infarction, unspecified mechanism (HCC) (Primary Dx); Generalized weakness; Speech disturbance, unspecified type; Hyperlipidemia, unspecified hyperlipidemia type; Essential hypertension, benign; Paroxysmal atrial fibrillation (HCC) Start: 02-13-2023 Telephone encounter Elise Paredes [facility] Comment on above: Anticoagulation Tele phone Fu (Lab INR) Start: 02-10-2023 End: 02-10-2023 Emergency department patient visit Stas Mora Facility:[facility] Start: 02-10-2023 End: 02-10-2023 Emergency department patient visit [facility] Work Phone: Start: 02-06-2023 Telephone encounter Senia Cross [facility] Amb[facility] Telemanagement Comment on above: Anticoagulation Tele phone Fu (INR Lab Result) Start: 01-19-2023 Telephone encounter [facility] Comment on above: Anticoagulation Tele phone Fu Start: 01-16-2023 Orders Only Stas newman MD Work Phone: Family Medicine [place] Comment on above: 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 current us 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 (Primary Dx); Paroxysmal atrial fibrillation (HCC) Start: 12-26-2022 Telephone encounter Senia Cross [facility] Comment on above: Anticoagulation Tele phone Fu (INR Lab Result) Start: 12-19-2022 Telephone encounter Senia Cross [facility] Comment on above: Anticoagulation Tele phone Fu (INR Lab Result) Start: 12-12-2022 Telephone encounter Senia Cross [facility] Comment on above: Anticoagulation Tele phone Fu (INR Lab Result) Start: 11-21-2022 Telephone encounter Jeimy Rhoda [facility] Comment on above: Anticoagulation Tele phone Fu (Lab INR result) Start: 11-17-2022 End: 11-17-2022 Emergency department patient visit NONE PHYSICIAN Facility:B Start: 11-17-2022 End: 11-17-2022 Emergency department patient visit STERLING SYED [facility] Start: 11-07-2022 Telephone encounter Senia Cross [facility] Comment on above: Anticoagulation Tele phone Fu (INR Lab Result) Start: 10-31-2022 Telephone encounter [facility] Comment on above: Anticoagulation Tele phone Fu Start: 10-24-2022 Telephone encounter Senia Cross [facility] Comment on above: Anticoagulation Tele phone Fu (INR Lab Result) Start: 10-17-2022 Telephone encounter Yomi Cov[facility]ubiaszman [facility] Tele[facility] Comment on above: Anticoagulation Tele phone Fu (Lab INR Result/) urgent PT INR result Start: 09-26-2022 Telephone encounter Jeimy Duong [facility] Comment on above: Anticoagulation Tele phone Fu (Lab INR result) Start: 09-12-2022 Telephone encounter Jeimy Duong [facility] Comment on above: Anticoagulation Tele phone Fu (Lab INR result) Start: 08-26-2022 End: 08-26-2022 Patient encounter procedure Stas Mora MD Work Phone: [facility] [place] Comment on above: Encounter for Medica re annual wellness exam (Primary Dx); Paroxysmal atrial fibrillation (HCC); Essential hypertension, benign; Hyperlipidemia, unspecified hyperlipidemia type Start: 08-22-2022 Telephone encounter Senia Cross [facility] Comment on above: Anticoagulation Tele phone Fu Start: 07-18-2022 Telephone encounter Senia Cross [facility] Comment on above: Anticoagulation Tele phone Fu (INR Lab Result) Start: 07-04-2022 Telephone encounter Lety Brady Juliocesar [facility] Comment on above: Anticoagulation Tele phone Fu (Lab INR result ) Start: 06-23-2022 Refill Elvis RASHID RN.SHIRT FOLDING MACHINE OPERATOR Work Phone: [facility] [place] Comment on above: Refill Request Start: 06-20-2022 Telephone encounter Senia Cross [facility] Telemanagement Comment on above: Anticoagulation Tele phone Fu (INR Lab Result) Start: 06-06-2022 Telephone encounter Senia Cross [facility] Comment on above: Anticoagulation Tele phone Fu (INR Lab Result) Start: 05-30-2022 Telephone encounter Stas miranda MD Work Phone: [facility] [place] Comment on above: Opened In Error Start: 05-22-2022 Telephone encounter Jenna barnes APRN.SHIRT FOLDING MACHINE OPERATOR Work Phone: [facility] [place] Comment on above: Results (X-ray hip) Start: 05-21-2022 End: 05-21-2022 Subsequent hospital visit by physician Jaymie [facility] [place] Work Phone: Radiology Comment on above: Left hip pain [M25.5 52] Start: 05-21-2022 ambulatory Fani Grace RN NURSE O N CALL Comment on above: Fall Fall; Hip Pain Start: 05-19-2022 Telephone encounter Stas miranda MD Work Phone: [facility] Comment on above: Anticoagulation Start: 05-16-2022 Telephone encounter Senia Cross [facility] Comment on above: Anticoagulation Tele phone Fu Start: 05-02-2022 Telephone encounter Senia Cross [facility] Comment on above: Anticoagulation Tele phone Fu (INR Lab Result) Start: 04-18-2022 Telephone encounter Senia Cross [facility] Tele[facility] Comment on above: Anticoagulation Tele phone Fu (INR Lab Result) Start: 04-04-2022 Telephone encounter Elise Paredes [facility] Comment on above: Anticoagulation Tele phone Fu (Lab INR) Start: 03-31-2022 Telephone encounter Stas miranda MD Work Phone: [facility] Comment on above: Release Of Medical R ecords ([place] PCP) Start: 03-21-2022 Telephone encounter Carmelina Cruz [facility] Comment on above: Anticoagulation Tele phone Fu Start: 02-21-2022 Telephone encounter Kristian Ferguson MD Work Phone: [facility] Comment on above: Anticoagulation Start: 02-10-2022 Telephone encounter Stas miranda MD Work Phone: [facility] Comment on above: Opened In Error Start: 01-27-2022 Telephone encounter [facility]ige [facility] Comment on above: Anticoagulation Tele phone Fu (Lab INR Result) Start: 01-20-2022 Telephone encounter [facility] Comment on above: Anticoagulation Tele phone Fu (Lab INR Result) Start: 01-17-2022 Telephone encounter Stas miranda MD Work Phone: [facility] Comment on above: Anticoagulation; Cri tical Results (INR) Start: 01-13-2022 Refill Stas newman MD Work Phone: [facility] Comment on above: Refill Request; Refi ll Request Start: 01-03-2022 Telephone encounter Senia Phillips [facility] Comment on above: Anticoagulation Tele phone Fu (INR Home Test Result) Start: 01-02-2022 Telephone encounter Stas miranda MD Work Phone: [facility] Comment on above: Results Start: 12-26-2021 End: 12-26-2021 Patient encounter procedure Stas Mora MD Work Phone: [facility] Comment on above: Hospital discharge f ollow-up (Primary Dx); Encounter for immunization; TIA (transient ischemic attack); Thyroid nodule; Essential hypertension, benign; Paroxysmal atrial fibrillation (HCC); Atherosclerosis 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, unspecified vessel or lesion type, unspecified whether pauma or transplanted heart Start: 12-22-2021 Non-patient / Non-visit Dr. Maria E Mora Work Phone: [facility] Start: 12-21-2021 Non-patient / Non-visit Dr. Maria E Mora Work Phone: [facility] Start: 12-21-2021 End: 12-22-2021 Evaluation and management of inpatient [facility] Start: 12-21-2021 End: 12-22-[address] Stas Mora Work Phone: [facility] Work Phone: Start: 12-20-2021 Telephone encounter Stas miranda MD Work Phone: [facility] Comment on above: Opened In Error Anticoagulation Tele phone Fu (INR Lab Result) Start: 12-06-2021 Telephone encounter Senia Phillips [facility] Comment on above: Anticoagulation Tele phone Fu (INR Lab Result) Start: 11-22-2021 Telephone encounter Janice Huang [facility] Comment on above: Anticoagulation Tele phone Fu (INR) Start: 11-08-2021 Telephone encounter Stas miranda MD Work Phone: [facility] [place] Comment on above: Opened In Error Anticoagulation Tele phone Fu (INR Lab Result) Start: 10-25-2021 Telephone encounter Janice Sal [facility] Comment on above: Anticoagulation Tele phone Fu (lab INR ) Start: 09-27-2021 Telephone encounter Yomi Wills [facility] Comment on above: Anticoagulation Tele phone Fu (Lab INR Result) Start: 09-13-2021 Orders Only Stas newman MD Work Phone: [facility] [place] Comment on above: [facility] current us 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 (Primary Dx); Encounter for monitoring Coumadin therapy Anticoagulation Tele phone Fu (INR Lab Result) Start: 09-05-2021 End: 09-05-2021 Patient encounter procedure Stas Mora MD Work Phone: Family [facility] [place] Comment on above: Encounter for Medica re annual wellness exam (Primary Dx); Paroxysmal atrial fibrillation (HCC); Essential hypertension, benign Start: 08-30-2021 Telephone encounter Jenna Armenta nhof SENIOR TECHNICAL RECRUITER.SHIRT FOLDING MACHINE OPERATOR Work Phone: [facility] [place] Comment on above: Orders (INR ) Anticoagulation Tele phone Fu (INR Lab Result) Start: 08-16-2021 Orders Only Stas newman MD Work Phone: [facility] [place] Comment on above: Anticoagulation Start: 08-02-2021 Telephone encounter Senia Alan [facility] Comment on above: Anticoagulation Tele phone Fu (INR Lab Result) Start: 07-16-2021 Telephone encounter Stas miranda MD Work Phone: [facility] [place] Comment on above: Results Start: 07-13-2021 Refill Elvis RASHID RN.SHIRT FOLDING MACHINE OPERATOR Work Phone: [facility] [place] Comment on above: Refill Request Start: 07-08-2021 End: 07-08-2021 Patient encounter procedure Stas Mora MD Work Phone: [facility] [place] Comment on above: Essential hypertensi on, benign (Primary Dx); Atherosclerosis 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, unspecified vessel or lesion type, unspecified whether pauma or transplanted heart; Paroxysmal atrial fibrillation (HCC); Primary osteoarthritis of both knees Start: 07-03-2021 Telephone encounter Stas miranda MD Work Phone: [facility] [place] Comment on above: Anticoagulation Tele phone Fu (Lab INR result) Start: 06-12-2021 Telephone encounter Stas miranda MD Work Phone: [facility] [place] Comment on above: Anticoagulation (Lab INR result) Start: 03-12-2020 End: 03-12-2020 Subsequent hospital visit by physician Xr [facility] [place] Work Phone: Radiology Comment on above: Acute right-sided lo w back pain, unspecified whether sciatica present [M54.5] Start: 02-02-2018 Ambulatory DARRELL OLIVEIRA Facility :[facility] Start: 06-02-2017 End: 06-02-2017 [facility] Procedures Date Procedure Procedure Detail Performing Clinician Start: 09-01-2024 Urnls dip stick/tabl et reagent auto microscopy Dr. Stas Mora MD Work Phone: Start: 09-01-2024 Plain chest X-ray Dr. Jessica Mora MD Work Phone: Start: 09-01-2024 CT of head without contrast Dr. Stas Mora MD Work Phone: Start: 09-01-[address] Stas Mora MD Work Phone: Start: 09-01-2024 Plain x-ray of pelvi s and lower extremity Dr. 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 Stas Mora Work Phone: Start: 12-21-2021 Plain chest X-ray Start: 12-21-2021 CT angiography of he ad and neck Start: 12-21-2021 CT of head without contrast Dr. Stas Mora Work Phone: Start: 03-12-2020 Radex spine lumbosac ral 2/3 views Stas Mora MD Work Phone: Plan of Treatment Date Care Activity Detail Author Start: 02-27-2031 Urine microalbumin profile [facility] Start: 05-26-2027 Diabetes Screening Diabetes Screenin g [facility] Start: 06-02-2026 Diabetes Screening Diabetes Screenin [facility] Start: 08-15-2025 DIABETES SCREEN DIABETES SCREEN [facility] Start: 08-15-2025 Diabetes Screening Diabetes Screenin g [facility] Start: 05-25-2025 Hepatitis B surface antibody level LDL Cholesterol [facility] Start: 03-30-2025 End: 03-30-2025 Patient encounter procedure 03/30/2025 11:00 AM EST Office Visit Geriatrics [address] [place] [address] Luciana Cisneros MD [address] [place] [id number] follow up 6 months Geriatrics Comment on above: follow up 6 months Start: 02-21-2025 DIABETES SCREEN DIABETES SCREEN [facility] Start: 12-06-2024 DIABETES SCREEN DIABETES SCREEN [facility] Start: 12-05-2024 End: 12-05-2024 Patient encounter procedure 12/05/2024 12:40 PM EDT Office Visit [facility] [place] [address] [place] [address] Stas Mora MD [address] [place] [address] [facility] from [facility]01 Start: 12-01-2024 End: 12-01-2024 Patient encounter procedure 12/01/2024 9:40 AM EDT Office Visit [facility] [place] [address] [place] [address] Stas Mora MD [address] [place], [place] [address] 6 mo f/u [facility] Comment on above: 6 mo f/u Start: 11-26-2024 End: 02-25-2025 CBC W Auto Differential panel - Blood COMPLETE BLOOD COUNT AND DIFFERENTIAL Lab Routine Essential hypertension, benign Expected: 11/26/2024 (Approximate), Expires: 02/25/2025 [facility] Comment on above: Expected: 11/26/2024 (Approximate), Expires: 02/25/2025 Start: 11-26-2024 End: 02-25-2025 Comprehensive metabolic 2000 panel - Serum or Plasma COMPREHENSIVE METABOLIC PANEL Lab Routine Essential hypertension, benign Hyperlipidemia, unspecified hyperlipidemia type Expected: 11/26/2024 (Approximate), Expires: 02/25/2025 [facility] Work Phone: Comment on above: Expected: 11/26/2024 (Approximate), Expires: 02/25/2025 Start: 11-26-2024 End: 02-25-2025 Lipid 1996 panel - Serum or Plasma LIPID PANEL BASIC Lab Routine Essential hypertension, benign Hyperlipidemia, unspecified hyperlipidemia type Expected: 11/26/2024 (Approximate), Expires: 02/25/2025 [facility] Comment on above: Expected: 11/26/2024 (Approximate), Expires: 02/25/2025 Start: 11-25-2024 RSV Vaccine (1 - 1-d ose 60+ series) RSV Vaccine (1 - 1-dose 60+ series) [facility] Comment on above: Postponed from 08/12 (Declined at this time) Start: 11-25-2024 RSV Vaccine (1 - 1-d ose 75+ series) RSV Vaccine (1 - 1-dose 75+ series) [facility] Comment on above: Postponed from 08/12 (Declined at this time) Start: 09-01-2024 Admission procedure [facility] Start: 09-01-2024 Hospital admission, emergency, from emergency room, medical nature [facility] Start: 08-31-2024 End: 08-31-2024 Patient encounter procedure 08/31/2024 11:00 AM EDT Office Visit Geriatrics [address] [place], [place] [address] Luciana Cisneros MD [address] [place], [place] [id number] 3 month f/u Geriatrics Comment on above: 3 month f/u Start: 2024 Anxiety Screening Anxiety Screening [facility] Start: 2024 Depression Screening Depression Scre ening [facility] Start: 07-08-2024 DIABETES SCREEN DIABETES SCREEN [facility] Start: 06-02-2024 Hepatitis B surface antibody level LDL Cholesterol [facility] Start: 06-01-2024 End: 06-01-2024 Patient encounter procedure 06/01/2024 3:00 PM EDT Office Visit Geriatrics [address] [place], [place] [id number] Luciana Cisneros MD [address] [place], [place] [phone] Follow up visit for MRI Geriatrics Comment on above: Follow up visit for MRI Start: 06-01-2024 Covid-19 Vaccine () Covid-19 Vaccine () [facility] Start: 05-30-2024 End: 05-30-2024 Patient encounter procedure 05/30/2024 11:20 AM EDT Office Visit [facility] Medicine [place] [address] [place] [address] Luciana Cisneros MD [address] [place] [address] Follow up visit for MRI [facility] [place] Comment on above: Follow up visit for MRI Start: 05-26-2024 End: 05-26-2024 Patient encounter procedure 05/26/2024 9:20 AM EST Office Visit Family Medicine [place] [address] [place] [address] Stas Mora MD [address] [place] [address] 6 mo f/u [facility] [place] Comment on above: 6 mo f/u Start: 05-25-2024 End: 08-24-2024 CBC W Auto Differential panel - Blood COMPLETE BLOOD COUNT AND DIFFERENTIAL Lab Routine Abnormal CBC Expected: 05/25/2024 (Approximate), Expires: 08/24/2024 [facility] Comment on above: Expected: 05/25/2024 (Approximate), Expires: 08/24/2024 Start: 05-25-2024 End: 08-24-2024 Comprehensive metabolic 2000 panel - Serum or Plasma COMPREHENSIVE METABOLIC PANEL Lab Routine Essential hypertension, benign Hyperlipidemia, unspecified hyperlipidemia type Expected: 05/25/2024 (Approximate), Expires: 08/24/2024 [facility] Work Phone: Comment on above: Expected: 05/25/2024 (Approximate), Expires: 08/24/2024 Start: 05-25-2024 End: 08-24-2024 Lipid 1996 panel - Serum or Plasma LIPID PANEL BASIC Lab Routine Essential hypertension, benign Hyperlipidemia, unspecified hyperlipidemia type Expected: 05/25/2024 (Approximate), Expires: 08/24/2024 [facility] Comment on above: Expected: 05/25/2024 (Approximate), Expires: 08/24/2024 Start: 05-25-2024 End: 05-25-2024 ambulatory 05/25/2024 8:30 AM EST Results Only [place] [facility] Draw Station [address] [facility] [place] [address] [facility] Start: 05-23-2024 End: 05-23-2024 Patient encounter procedure 05/23/2024 2:30 PM EST Appointment [facility] [address] [place] [address] Cognitive impairment, mild, 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] [facility] Comment on above: Cognitive impairment , mild, 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] Start: 04-29-2024 End: 04-29-2024 Patient encounter procedure 04/29/2024 3:40 PM EST Office Visit Family [facility] [place] [address] [place] [address] Stas Mora MD [address] [facility] [address] memory issues,See TE Family [place] Comment on above: memory issues,See TE Start: 04-27-2024 End: 04-27-2024 Patient encounter procedure 04/27/2024 9:30 AM EST Office Visit Geriatrics [address] [facility] [address] Luciana Cisneros MD [address] [facility] [address] Dementia, unspecified dementia severity, unspecified dementia type, unspecified whether behavioral, psychotic, or mood disturbance or anxiety (HCC) [F03.90] Geriatrics Comment on above: Dementia, unspecifie d dementia severity, unspecified dementia type, unspecified whether behavioral, psychotic, or mood disturbance or anxiety (HCC) [F03.90] Start: 03-23-2024 Advance Directive Discussion Advance Directive Discussion [facility] Start: 03-23-2024 Medicare Advantage A nnual Wellness Visit Medicare Advantage Annual Wellness Visit [facility] Start: 03-13-2024 DIABETES SCREEN DIABETES SCREEN [facility] Start: 11-26-2023 End: 11-26-2023 Patient encounter procedure [facility] [place] Comment on above: 6 month follow up 6 month follow up, jessica bashir, on aricept x 3 months Start: 11-22-2023 Covid-19 Vaccine ( season) Covid-19 Vaccine () [facility] Start: 11-22-2023 Influenza vaccination Influenza Vacc ine (#1) [facility] Start: 09-15-2023 End: 09-15-2023 Patient encounter procedure 09/15/2023 8:40 AM EDT [facility] [address] [place], [place] [address] Stas Mora MD [address] [place], [place] [id number] leg swelling- both legs--See triage 09/14/2023. [facility] [place] Comment on above: leg swelling- both l egs--See triage 09/14/2023. Start: 08-16-2023 Hepatitis B surface antibody level LDL CHOLESTEROL [facility] Start: 08-14-2023 End: 08-14-2023 Patient encounter procedure 08/14/2023 10:00 AM EDT Office Visit [facility] [place] [address] [place] [address] Stas Mora MD [address] [place], [place] [id number] Memory Issues [facility] [place] Comment on above: Memory Issues Start: 06-04-2023 End: 09-03-2023 Ferritin [Mass/volume] in Serum or Plasma [facility] Work Phone: Comment on above: Expected: 06/04/2023 , Expires: 09/03/2023 Start: 06-04-2023 End: 09-03-2023 Iron and Iron binding capacity panel - Serum or Plasma [facility] Work Phone: Comment on above: Expected: 06/04/2023 , Expires: 09/03/2023 Start: 06-01-2023 End: 08-31-2023 CBC panel - Blood by Automated count CBC Lab Routine Paroxysmal atrial fibrillation (HCC) Essential hypertension, benign Expected: 06/01/2023 (Approximate), Expires: 08/31/2023 [facility] Work Phone: Comment on above: Expected: 06/01/2023 (Approximate), Expires: 08/31/2023 Start: 06-01-2023 End: 08-31-2023 Comprehensive metabolic 2000 panel - Serum or Plasma COMP METABOLIC PANEL Lab Routine Paroxysmal atrial fibrillation (HCC) Essential hypertension, benign Hyperlipidemia, unspecified hyperlipidemia type Expected: 06/01/2023 (Approximate), Expires: 08/31/2023 [facility] Work Phone: Comment on above: Expected: 06/01/2023 (Approximate), Expires: 08/31/2023 Start: 06-01-2023 End: 08-31-2023 Lipid 1996 panel - Serum or Plasma LIPID PANEL BASIC Lab Routine Paroxysmal atrial fibrillation (HCC) Essential hypertension, benign Hyperlipidemia, unspecified hyperlipidemia type Expected: 06/01/2023 (Approximate), Expires: 08/31/2023 [facility] Work Phone: Comment on above: Expected: 06/01/2023 (Approximate), Expires: 08/31/2023 Start: 05-13-2023 Covid-19 Vaccine () Covid-19 Vaccine () [facility] Start: 03-23-2023 Advance Directive Discussion Advance Directive Discussion [facility] Start: 03-23-2023 Behavioral Health Screening Behavioral Health Screening [facility] Start: 03-23-2023 Depression Assessment Depression Ass essment [facility] Start: 02-21-2023 Hepatitis B surface antibody level LDL CHOLESTEROL [facility] Start: 02-10-2023 [facility] Start: 12-06-2022 Hepatitis B surface antibody level LDL CHOLESTEROL [facility] Start: 11-21-2022 Covid-19 Vaccine ( season) Covid-19 Vaccine () [facility] Start: 11-21-[address] [facility] Start: 09-05-2022 PNEUMOCOCCAL: 65+ (2 - PCV) PNEUMOCOCCAL: 65+ (2 - PCV) [facility] Comment on above: Postponed from 02/21 (Declined at this time) Start: 07-08-2022 Hepatitis B surface antibody level LDL CHOLESTEROL [facility] Start: 04-26-2022 COVID-19 VACCINE (6 - Pfizer series) COVID-19 VACCINE (6 - Pfizer series) [facility] Start: 03-23-2022 ADVANCE DIRECTIVE DISCUSSION ADVANCE DIRECTIVE DISCUSSION [facility] Start: 03-23-2022 DEPRESSION ASSESSMENT DEPRESSION ASS ESSMENT [facility] Start: 03-13-2022 Hepatitis B surface antibody level LDL CHOLESTEROL [facility] Start: 03-10-2022 End: 05-10-2022 CBC panel - Blood by Automated count CBC Lab Routine TIA (transient ischemic attack) Essential hypertension, benign Atherosclerosis 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, unspecified vessel or lesion type, unspecified whether pauma or transplanted heart Expected: 03/10/2022 (Approximate), Expires: 05/10/2022 [facility] Work Phone: Comment on above: Expected: 03/10/2022 (Approximate), Expires: 05/10/2022 Start: 03-10-2022 End: 05-10-2022 Comprehensive metabolic 2000 panel - Serum or Plasma COMP METABOLIC PANEL Lab Routine TIA (transient ischemic attack) Essential hypertension, benign Atherosclerosis 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, unspecified vessel or lesion type, unspecified whether pauma or transplanted heart Expected: 03/10/2022 (Approximate), Expires: 05/10/2022 [facility] Work Phone: Comment on above: Expected: 03/10/2022 (Approximate), Expires: 05/10/2022 Start: 03-10-2022 End: 05-10-2022 Lipid 1996 panel - Serum or Plasma LIPID PANEL BASIC Lab Routine TIA (transient ischemic attack) Essential hypertension, benign Atherosclerosis 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, unspecified vessel or lesion type, unspecified whether pauma or transplanted heart Expected: 03/10/2022 (Approximate), Expires: 05/10/2022 [facility] Work Phone: Comment on above: Expected: 03/10/2022 (Approximate), Expires: 05/10/2022 Start: 01-03-2022 End: 03-05-2022 Comprehensive metabolic 2000 panel - Serum or Plasma COMP METABOLIC PANEL Lab Routine Atherosclerosis 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, unspecified vessel or lesion type, unspecified whether pauma or transplanted heart Essential hypertension, benign Expected: 01/03/2022 (Approximate), Expires: 03/05/2022 [facility] Work Phone: Comment on above: Expected: 01/03/2022 (Approximate), Expires: 03/05/2022 Start: 01-03-2022 End: 03-05-2022 LIPID PANEL BASIC LIPID PANEL BASIC Lab Routine Atherosclerosis 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, unspecified vessel or lesion type, unspecified whether pauma or transplanted heart Essential hypertension, benign Expected: 01/03/2022 (Approximate), Expires: 03/05/2022 [facility] Work Phone: Comment on above: Expected: 01/03/2022 (Approximate), Expires: 03/05/2022 Start: 12-24-2021 Prothrombin time [facility] Work Phone: Start: 12-23-2021 Prothrombin time [facility] Work Phone: Start: 12-22-2021 Patient discharge [facility] Work Phone: Start: 12-21-2021 Assessment of risk o f venous thromboembolism [facility] Work Phone: Start: 12-21-2021 Cardiac monitoring [facility] Work Phone: Start: 12-21-2021 Catheterization of vein [facility] Work Phone: Start: 12-21-2021 Continuous pulse oximetry [facility] Work Phone: Start: 12-21-2021 Elevation of head of bed [facility] Work Phone: Start: 12-21-2021 Exercises [facility] Work Phone: Start: 12-21-[address] anned interventions [facility] Work Phone: Start: 12-21-2021 Insertion of cathete r into peripheral vein [facility] Work Phone: Start: 12-21-2021 Measuring intake and output [facility] Work Phone: Start: 12-21-2021 Notification of physician [facility] Work Phone: Start: 12-21-2021 Oxygen therapy [facility] Work Phone: Start: 12-21-2021 Providing care accor ding to standard [facility] Work Phone: Start: 12-21-2021 Provision of activit y privileges [facility] Work Phone: Start: 12-21-2021 Referral to occupati onal therapist [facility] Work Phone: Start: 12-21-2021 Referral to service [facility] Work Phone: Start: 12-21-2021 Tobacco use cessatio n education [facility] Work Phone: Start: 12-21-2021 US scan of thyroid Thyroid [facility] Work Phone: Start: 12-21-2021 [facility] Work Phone: Start: 12-21-2021 End: 12-21-2021 Following clinical pathway protocol [facility] Work Phone: Start: 12-21-2021 Verification routine [facility] Work Phone: Start: 12-21-2021 Admission procedure [facility] Work Phone: Start: 12-21-2021 CT of head without contrast STROKE Brain/Head without Cont [facility] Work Phone: Start: 12-21-2021 CT Unspecified body region WO contrast [facility] Work Phone: Start: 12-21-2021 Oxygen therapy [facility] Work Phone: Start: 12-21-2021 End: 12-22-2021 [facility] Work Phone: Start: 11-21-2021 Influenza vaccination INFLUENZA (#1) [facility] Start: 09-24-2021 COVID-19 VACCINE (5 - Booster for Pfizer series) COVID-19 VACCINE (5 - Booster for Pfizer series) [facility] Start: 08-30-2021 End: 10-30-2021 PT panel - Platelet poor plasma by Coagulation assay [facility] Work Phone: Comment on above: Expected: 08/30/2021 , Expires: 10/30/2021 Start: 07-08-2021 End: 09-07-2021 Comprehensive metabolic 2000 panel - Serum or Plasma [facility] Work Phone: Comment on above: Expected: 07/08/2021 (Approximate), Expires: 09/07/2021 Start: 07-08-2021 End: 09-07-2021 LIPID PANEL BASIC [facility] Work Phone: Comment on above: Expected: 07/08/2021 (Approximate), Expires: 09/07/2021 Start: 04-27-2021 COVID-19 VACCINE (4 - Booster for Pfizer series) COVID-19 VACCINE (4 - Booster for Pfizer series) [facility] Start: 03-23-2021 ADVANCE DIRECTIVE DISCUSSION ADVANCE DIRECTIVE DISCUSSION [facility] Start: 03-23-2021 DEPRESSION ASSESSMENT DEPRESSION ASS ESSMENT [facility] Start: 02-21-2009 Pneumococcal Vaccine : 65+ (2 - PCV) Pneumococcal Vaccine: 65+ (2 - PCV) [facility] Start: 02-21-2009 PNEUMOCOCCAL: 65+ (2 - PCV) PNEUMOCOCCAL: 65+ (2 - PCV) [facility] Start: 02-23-2008 Urine microalbumin profile DTAP,TDAP,TD (1 - Tdap) [facility] Start: 1995 RSV Vaccine (1 - 1-d ose 60+ series) RSV Vaccine (1 - 1-dose 60+ series) [facility] Start: 08-12-1985 SHINGRIX VACCINE (1 of 2) VALDES GRIX VACCINE (1 of 2) [facility] Hemoglobin.gastroint estin al.lower [Presence] in Stool by Immunoassay FECAL OCCULT BLOOD TEST Lab Routine Abnormal CBC 06/04/2023 2:13 PM EDT [facility] Work Phone: End: 05-27-2025 MR Brain WO contrast MRI BRAIN W QUANT WO IVCON Radiology Routine Cognitive impairment, mild, so stated 1 Occurrences starting 04/27/2024 until 05/27/2025 [facility] Work Phone: Comment on above: 1 Occurrences starti ng 04/27/2024 until 05/27/2025 End: 05-27-2025 MR Unspecified body region 3D post processing MRI 3D BRAIN QUANT Radiology Routine Cognitive impairment, mild, so stated 1 Occurrences starting 04/27/2024 until 05/27/2025 [facility] Comment on above: 1 Occurrences starti ng 04/27/2024 until 05/27/2025 End: 03-17-2024 Mri brain brain stem w/o contrast material MRI BRAIN WO IVCON Radiology STAT Cerebral infarction, unspecified mechanism (HCC) 1 Occurrences starting 02/16/2023 until 03/17/2024 [facility] Work Phone: Comment on above: 1 Occurrences starti ng 02/16/2023 until 03/17/2024 Mri brain brain stem w/o contrast material MRI BRAIN WO IVCON Radiology STAT Cerebral infarction, unspecified mechanism (HCC) 02/17/2023 8:13 AM EST [facility] Work Phone: Patient Education ED Weakness (U ncertain Cause) [facility] Work Phone: Patient referral [facility] Work Phone: End: 09-13-2022 PT panel - Platelet poor plasma by Coagulation assay PROTHROMBIN TIME/PT Lab Routine 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 Encounter for monitoring Coumadin therapy Once per week for 99 Occurrences starting 09/13/2021 until 09/13/2022 [facility] Work Phone: Comment on above: Once per week for 99 Occurrences starting 09/13/2021 until 09/13/2022 PT panel - Platelet poor plasma by Coagulation assay PROTHROMBIN TIME/PT Lab Routine 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 Encounter for monitoring Coumadin therapy 09/13/2021 8:42 AM EDT [facility] Work Phone: End: 01-16-2024 PT panel - Platelet poor plasma by Coagulation assay PROTHROMBIN TIME/PT Lab Routine [facility] current us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 Paroxysmal atrial fibrillation (HCC) Once per week for 99 Occurrences starting 01/16/2023 until 01/16/2024 [facility] Work Phone: Comment on above: Once per week for 99 Occurrences starting 01/16/2023 until 01/16/2024 End: 12-23-2024 PT panel - Platelet poor plasma by Coagulation assay PROTHROMBIN TIME Lab STAT [facility] current us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 24 Occurrences starting 12/24/2023 until 12/23/2024 [facility] Work Phone: Comment on above: 24 Occurrences start ing 12/24/2023 until 12/23/2024 End: 01-25-2023 Us soft tissue head & neck real time imge docm US THYROID/PARATHYROID Radiology Routine Thyroid nodule 1 Occurrences starting 12/26/2021 until 01/25/2023 [facility] Work Phone: Comment on above: 1 Occurrences starti ng 12/26/2021 until 01/25/2023 [facility] Immunizations Immunization Date Immunization Notes Care Provider Rich vargas 01-10-2023 influenza (HD-IIV4) vaccine, age 65+ yr, high dose, quadrivalent, PF (FLUZONE HIGH-DOSE) [facility] 01-10-2023 influenza virus vacc ine, unspecified formulation [facility] 12-26-2021 influenza, high-dose , quadrivalent vaccine (FLUZONE HIGH DOSE QUADRIVALENT) Stas Mora MD Work Phone: [facility] 12-26-2021 influenza virus vacc ine, unspecified formulation Senia Phillips [facility] 02-27-2021 tetanus toxoid, redu natividad diphtheria toxoid, and acellular pertussis vaccine, adsorbed Stas Mora MD Work Phone: [facility] 02-27-2021 zoster vaccine recombinant Stas Mora MD Work Phone: [facility] 12-25-2020 Covid (Pfizer) Dr. Stas gonzales Work Phone: [facility] 12-10-2020 influenza (HD-IIV4) vaccine, age 65+ yr, high dose, quadrivalent, PF (FLUZONE HIGH-DOSE) Coretta Jalloh [facility] 12-10-2020 influenza, high dose seasonal, preservative-free Stas Mora MD Work Phone: [facility] 09-17-2020 zoster vaccine recombinant Stas Mora MD Work Phone: [facility] 05-09-2020 Covid (Pfizer) Dr. Stas gonzales Work Phone: [facility] 04-18-2020 Covid (Pfizer) Dr. Stas gonzales Work Phone: [facility] 12-24-2016 influenza, high dose seasonal, preservative-free Stas Mora MD Work Phone: [facility] 12-22-2015 Influenza virus vaccine [facility] 12-22-2015 influenza, seasonal, injectable, preservative free Stas Mora MD Work Phone: [facility] Work Phone: 01-30-2014 influenza, high dose seasonal, preservative-free Stas Mora MD Work Phone: [facility] Work Phone: 01-24-2013 influenza virus vacc ine, unspecified formulation Stas Mora MD Work Phone: [facility] 02-22-2008 pneumococcal polysaccharide vaccine, 23 valent Stas Mora MD Work Phone: [facility] Work Phone: 02-22-2008 tetanus and diphther ia toxoids, adsorbed, preservative free, for adult use (2 Lf of tetanus toxoid and 2 Lf of diphtheria toxoid) Stas Mora MD Work Phone: [facility] Work Phone: Payers Date Payer Category Payer Self-pay [id number] 2023 Unknown [id number] 2022 Unknown [id number] 2016 Medicare [employer] [place] [id number] 2016-Present [phone] [address] [place] [address] HMO [id number] 2016 Medicare [employer] [place] [id number] 2016-Present [phone] [address] [place] [address] HMO [id number] 2016 [place] ([place] Care[place] [id number] 2016 Medicare [id number] 1935 Unknown [id number] 1935 Unknown [id number] Unknown [place] AUTH REQUIR ED SEE NOTE . [id number] Unknown [id number] Social History Date Type Detail Facility Start: 05-04-2017 End: 12-26-2021 Tobacco smoking status NHIS Ex-smoker [facility] Start: 02-15-2021 End: 07-28-2024 Alcohol intake Current non-drinker of alcohol (finding) [facility] Start: 08-26-2020 End: 08-29-2021 History SDOH Alcohol Frequency 2 [facility] Start: 08-26-2020 End: 08-29-2021 History SDOH Alcohol Std Drinks 1 [facility] Start: 08-26-2020 End: 08-29-2021 History SDOH Social Connections Muslim 3 [facility] Start: 08-26-2020 End: 08-29-2021 History SDOH Social Connections Living 5 [facility] Start: 08-26-2020 History SDOH Physical Activity MPS 6 [facility] Start: 08-26-2020 Education 12 [facility] Start: 1935 Sex Assigned At Male [facility] Start: 02-11-2020 End: 12-26-2021 Exposure to SARS-CoV-2 (event) Not sure [facility] History of tobacco use Current smoker [facility] Start: 05-04-2017 End: 12-26-2021 Tobacco use and exposure Smokeless tobacco non-user [facility] Start: 12-21-2021 End: 02-10-2023 Tobacco smoking status [facility] Unknown if ever smoked [facility] Start: 12-22-2021 Non-smoker [facility] Start: 12-26-2021 Tobacco Comment 30 yaers ago [facility] Start: 02-28-2020 End: 08-29-2021 History of Social function [facility] Start: 02-28-2020 End: 08-29-2021 Social connection and isolation panel [facility] Do you belong to any clubs or organizations such as tenriism groups, unions, fraternal or athletic groups, or school groups? No [facility] Are you now , , , , never or living with a partner? [facility] How often to you hav e a drink containing alcohol? Monthly or less [facility] How many standard dr inks containing alcohol do you have on a typical day? 1 or 2 [facility] How often do you hav e 6 or more drinks on 1 occasion? Never [facility] How hard is it for y ou to pay for the very basics like food, housing, medical care, and heating Not hard at all [facility] Do you feel stress - tense, restless, nervous, or anxious, or unable to sleep at night because your mind is troubled all the time - these days [OSQ] Not at all [facility] (I/We) worried wheth er (my/our) food would run out before (I/we) got money to buy more. Never true [facility] Start: 08-26-2020 Gender identity Identifies as male gender (finding) [facility] Start: 08-26-2020 Sexual orientation Heterosexual (finding) [facility] Sex Assigned At [facility] Are you now , , , , never or living with a partner? [facility] How often to you hav e a drink containing alcohol? 2-4 times a month [facility] Goals Date Patient Goal Desired Activity /State Functional Status Date Assessment Result Facility 07-26-2024 Total score [AUDIT-C] 1 07/27/19 6:26 PM EDT User, Olena [facility] 07-26-2024 Within the last year , have you been humiliated or emotionally abused in other ways by your partner or ex-partner? No 07/26/2024 6:26 PM EDT [facility] Within the last year , have you been afraid of your partner or ex-partner? No 07/26/2024 6:26 PM EDT User, [facility] 07-26-2024 Within the last year , have you been raped or forced to have any kind of sexual activity by your partner or ex-partner? No 07/26/2024 6:26 PM EDT [facility] 07-26-2024 Within the last year , have you been kicked, hit, slapped, or otherwise physically hurt by your partner or ex-partner? No 07/26/2024 6:26 PM EDT [facility] 07-26-2024 How often to you hav e a drink containing alcohol? Monthly or less 07/26/2024 6:26 PM EDT User, Mychart Monthly or less [facility] 07-26-[address] inks containing alcohol do you have on a typical day? 1 or 2 07/26/2024 6:26 PM EDT User, Mychart 1 or 2 [facility] 07-26-2024 How often do you hav e 6 or more drinks on 1 occasion? Never 07/26/2024 6:26 PM EDT User, Mychart Never [facility] 11-17-2022 Functional Status Up ad tara [facility] 11-17-2022 Functional Status Identified as high risk, Fall ID band on, Room located near nursing station [facility] 12-22-2021 Functional status Ambulates;Chair [facility] Work Phone: 07-02-2016 Are you deaf, or do you have serious difficulty hearing No 07/02/2016 2:52 PM JOYT Anita Zhang, DO No [facility] Work Phone: 07-02-2016 Are you blind, or do you have serious difficulty seeing, even when wearing glasses No 07/02/2016 2:52 PM Anita Bentley, DO No [facility] 07-02-2016 Do you have serious difficulty walking or climbing stairs No 07/02/2016 2:52 PM Anita Bentley, DO No [facility] 07-02-2016 Do you have difficul ty dressing or bathing No 07/02/2016 2:52 PM Anita Bentley, DO No [facility] 07-02-2016 Because of a physica l, mental, or emotional condition, do you have difficulty doing errands alone such as visiting a physician's office or shopping No 07/02/2016 2:52 PM Anita Bentley, DO No [facility] Mental Status Date Assessment Result Facility 02-10-2023 Cognitive function Level Of Cons ciousness Awake;Alert;Appropriate;Fol lows Commands [facility] Work Phone: 11-17-2022 Mental Status Orientation Oriented x 4 [facility] 11-17-2022 Mental Status [facility] 12-22-2021 Cognitive function Voice/Name [facility] Work Phone: 12-21-2021 Cognitive function Voice/Name [facility] Work Phone: 07-02-2016 Because of a physica l, mental, or emotional condition, do you have serious difficulty concentrating, remembering, or making decisions No 07/02/2016 2:52 PM EDT Anita Zhang, DO No [facility] Clinical Notes 03-12-2020 to 09-01-2024 Telephone Encounter - Haydee Oliveros LPN - 09/01/2024 2:49 PM EDTTelephone Encounter - Haydee Oliveros LPN - 09/01/2024 2:49 PM EDTGLuciana broderick MD - 08/31/2024 5:46 PM EDT Note Date & Type Note Facility 09-01-2024 Telephone encounter Note Form atting of this note might be different from the original. Mychart message sent [facility] 09-01-2024 Miscellaneous Notes Formattin g of this note might be different from the original. Mychart message sent Thanks Kandi, Staff please let patient know what the pharmacist as opined on. Regards, Luciana Cisneros MD Images from the original note were not included. PCP reached out to PharmD regarding ways to get memantine tabs or rivastigmine patch at a reduced cost. Per recent PCP note, memantine was originally affordable at $18.75 but increased to ~$55. Rivastigmine patch was ordered yesterday. PharmD called pharmacy and confirmed copay is $100 x 30 patches. Memantine (Namenda) tablets are available at a more affordable alvarado using Good Rx coupons. At [facility] (his current pharmacy), he can get a 1 mo supply for ~$30. If he switches the prescription to [facility], he can get a 1 mo supply for ~$20. See coupons below. Rivastigmine patches are also available via GoodRx. It appears the cheapest option is through [facility], in which he can get 30 patches for $52. Coupon also below. Sending to PCP to review and provide patient with coupon card information. Kandi Aguayo PharmD, [facility] Primary Care Clinical Pharmacist Memantine coupon at [facility] Memantine coupon at [facility] Rivastigmine patches coupon at [facility] documented in this encounter [facility] 09-01-2024 Telephone encounter Note Form atting of this note might be different from the original. Thanks Kandi, Staff please let patient know what the pharmacist as opined on. Regards, Luciana Cisneros MD [facility] 09-01-2024 Discharge summary [facility] 09-01-2024 Telephone encounter Note Images from the original note were not included. PCP reached out to PharmD regarding ways to get memantine tabs or rivastigmine patch at a reduced cost. Per recent PCP note, memantine was originally affordable at $18.75 but increased to ~$55. Rivastigmine patch was ordered yesterday. PharmD called pharmacy and confirmed copay is $100 x 30 patches. Memantine (Namenda) tablets are available at a more affordable alvarado using Good Rx coupons. At [facility] (his current pharmacy), he can get a 1 mo supply for ~$30. If he switches the prescription to [facility], he can get a 1 mo supply for ~$20. See coupons below. Rivastigmine patches are also available via GoodRx. It appears the cheapest option is through [facility], in which he can get 30 patches for $52. Coupon also below. Sending to PCP to review and provide patient with coupon card information. Kandi Aguayo, PharmD, BCPS Primary Care Clinical Pharmacist Memantine coupon at [facility] Memantine coupon at [facility] Rivastigmine patches coupon at [facility] Work Phone: 09-01-2024 Radiology Diagnostic study note [facility] Imaging Services [address], [place] [address] Brain/Head without Contrast MR#: [id number] Acct: [id number] Name: ROBY FLORES Rep #: [id number] : 1935 M [id number] From: Laith Chavez MD PCP: Dr. Stas Mora MD Status: RE G ER Study:Brain/Head without Contrast Date of Exa m: 09/01/24 Exam# [id number] Ordering Dr: Earlene Gillespie MD PROCEDURE: BRAIN/HEAD WITHOUT CONTRAST 09/01/2024 REASON FOR EXAM: FALL ON COUMADIN Dementia. TECHNIQUE: Head CT without intravenous contrast. Coronal and Sagittal reconstruction serieswere provided. One or more dose reduction techniques were used (e.g., Automated exposure control, adjustment of the mA and/or kV according to patient size, use of iterative reconstruction technique. RADIATION DOSE SUMMARY: CTDlvol: 44.99 mGy DLP: 849.54 mGycm COMPARISON: Prior study dated December 21, 2021. FINDINGS: Brain: Low density in the periventricular white matter suggests mild chronic small vessel ischemic changes. Calcification of the basal ganglia bilaterally. This is a normal variant for the patient's age. CSF Spaces: Moderate generalized cerebral atrophy Sinuses/Mastoids: Mucosal thickening of the ethmoid sinuses and opacification ofthe left maxillary sinus. Bones: No fracture. CT/Brain/Head without Contrast IMPRESSION: Cerebral atrophy. Mucosal thickening of the ethmoid sinuses as well as opacification of the left maxillary sinus. Reading Location: [place] [address] CC: Dr. Inderjit Gillespie MD; Dr. Stas Mora MD ~ Fitter Mechanic: Signed [facility] 09-01-2024 Radiology Diagnostic study note [facility] Imaging Services [address] [place] [id number] Chest 1 View (Portable) MR#: [id number] Acct: [id number] Name: ROBY FLORES Rep #: [id number] 1935 M [id number] From: Laith Chavez MD PCP: Dr. Stas Mora MD Status: RE G ER Study:Chest 1 View (Portable) Date of Exam: 09/01/24 Exam# [id number] Ordering Dr: Earlene Gillespie MD PROCEDURE: CHEST 1 VIEW (PORTABLE) 09/01/2024 REASON FOR EXAM: WEAKNESS TECHNIQUE: Frontal view of the chest. COMPARISON: Prior study dated February 10, 2023. FINDINGS: Hardware: EKG electrodes are seen Heart: Heart size is within normal limits. Lungs: Hyperinflation. No acute abnormality is seen. Bones: Degenerative changes are identified within the thoracic spine. Other: Atherosclerotic calcification of the aortic arch. RAD/Chest 1 View (Portable) IMPRESSION: No acute abnormality is seen. Reading Location: [place] [address] CC: Dr. Inderjit Gillespie MD; Dr. Stas Mora MD ~ Fitter Mechanic: Signed [facility] 09-01-2024 Radiology Diagnostic study note [facility] Imaging [facility] [address] [place], [place] [address] Hips B/L min 2 views w/ Pelvis MR#: [id number] Acct: [id number] Name: ROBY FLORES Rep #: [id number] : 1935 M [id number] From: Laith Chavez MD PCP: Dr. Stas Mora MD Status: RE G ER Study:Hips B/L min 2 views w/ Pelvis Date of Exam: 09/01/24 Exam# [id number] Ordering Dr: Earlene Gillespie MD PROCEDURE: HIPS B/L MIN 2 VIEWS W/ PELVIS 09/01/2024 REASON FOR EXAM: FALL AND PAIN TECHNIQUE: Three views of both hips were obtained. COMPARISON: None FINDINGS: Mild degree of joint space narrowing of both hip joints. No evidence of fracture or dislocation. Degenerative changes of the symphysis pubis. No pelvic fracture seen. RAD/Hips B/L min 2 views w/ Pelvis IMPRESSION: Degenerative changes of both hip joints. No fracture or dislocation present. Reading Location: [place] [address] CC: Dr. Inderjit Gillespie MD; Dr. Stas Mora MD ~ Fitter Mechanic: Signed [facility] 08-31-2024 History of Present illness Narrative Reason for Visit Follow up HPI Jaquan Flores is a 89-year-old male with a history of dementia, accompanied by his caregiver, presenting for worsening hallucinations and memory decline. Jaquan's caregiver reports an increase in the frequency and severity of hallucinations, which occur during the day and are perceived as real by Jaquan. Recent hallucinations include seeing two men in suits in the bedroom and believing his brother, who lives in [place], was present. Jaquan also thought he had a car in [facility] and wanted to retrieve it, despite not having a speedboat driver's license or a car there. Additionally, he was found fully dressed at 0430, waiting for a bus that does not exist. Jaquan denies fear associated with these hallucinations. Jaquan's memory has reportedly worsened over the past year, with episodes of confusion about his age and location. He also inquires about a nonexistent gun, believing his caregiver possesses it. The caregiver expresses frustration and anger due to Jaquan's condition but denies any aggressive behavior from Jaquan, such as hitting or throwing objects. Jaquan has a history of falls and rigidity, resembling Parkinsonian symptoms, but has not had recent falls. He used to walk frequently and ride a bike until a few years ago but has reduced his walking activities recently. He refuses physical therapy due to copay costs. Jaquan previously tried Aricept but discontinued it due to bradycardia. He also tried Namenda, which was initially affordable at $18.75 but increased to $54.95, leading to discontinuation due to cost. The caregiver notes that Namenda seemed to help but was not significantly effective. Social History Tobacco Use Smoking status: Former Smokeless tobacco: Never Tobacco comments: 30 yaers ago Substance Use Topics Alcohol use: No Drug use: No Past medical history, appointments, medications, allergies reviewed. Pertinent Lab/Diagnostic Studies are reviewed and discussed today Current Outpatient Medications: atorvastatin (LIPITOR) 40 mg tablet warfarin (COUMADIN) 2.5 mg tablet warfarin (COUMADIN) 3 mg tablet lisinopril (ZESTRIL) 10 mg tablet warfarin (COUMADIN) 1 mg tablet rivastigmine (EXELON) 4.6 mg/24 hour patch memantine (NAMENDA) 10 mg tablet [facility] Maintenance Medicare Advantage Annual Wellness Visit Covid-19 Vaccine()@ Review Of Systems Constitutional: (+) insomnia Musculoskeletal: (+) rigidity, (+) gait difficulty Neurological: (+) memory loss Psychiatric: (+) visual hallucinations, (-) dream enactment behavior Physical Exam BP 124/74 Pulse 74 Resp 12 Wt 73.9 kg (163 lb) SpO2 98% BMI 22.35 kg/m GENERAL: NAD, alert and oriented SKIN: unremarkable, no rash or skin lesions. HEAD: normocephalic EYES: PERRLA, EOMI, conjunctiva clear LUNGS: Clear to auscultation bilaterally, no wheezes/rhonchi/rales. HEART: Regular rate and rhythm, no murmurs. No ectopy. EXTREMITIES: Normal, No deformities, No skin discoloration, No edema. NEURO: Awake, alert and oriented x3, cranial nerves II-XII grossly intact, normal gait, no involuntary motions Assessment and Plan 1. Moderate dementia without behavioral disturbance, psychotic disturbance, mood disturbance, or anxiety, unspecified dementia type (HCC) Hallucinations Dementia with worsening hallucinations. Previously trialed Aricept, which was discontinued due to bradycardia, and Namenda, which was discontinued due to cost. Hallucinations include seeing people and objects that are not present. Patient is not currently experiencing anxiety or anger, but rigidity and decreased mobility are noted. - Initiate rivastigmine patch; will monitor for efficacy and side effects. - Contacted pharmacist to explore cost assistance for rivastigmine patch. - Educated caregiver on managing hallucinations by sometimes playing along to reduce distress. - Advised caregiver to monitor heart rate; if HR is below 60 bpm, hold medication. - Discussed potential use of risperidone if hallucinations become harmful or significantly bothersome. - Follow-up to assess response to treatment and adjust as necessary. 2. Screening for depression 3. Encounter for screening examination for other mental health and behavioral disorders Voice recognition software was used to compose this office note. Please excuse any unintended typographical errors. Recording using ambient Waterfall software for draft documentation of the visit was discussed with the patient/authorized business office representative; all questions welcomed and answered. Patient/authorized business office representative agreed to proceed Luciana Cisneros MD documented in this encounter [facility] 08-31-2024 Telephone encounter Note [facility] Ambulatory Pharmacy Anticoagulation Clinic Anticoagulation Episode Summary Anticoagulation Care Providers Provider Role Specialty Phone number Stas Mora MD Referring Family Medicine [phone] Roby Flores is a 89 year old year old male patient being evaluated today for a Lab INR. Patient is currently on the following 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(s) Warfarin. Labs Lab Results Component Value Date INR 1.9 (H) 08/31/2024 INR 2.5 (H) 08/03/2024 INR 2.1 (H) 07/06/2024 Lab Results Component Value Date HB 11.8 (L) 05/25/2024 HB 10.0 (L) 06/04/2023 HB 9.8 (L) 06/03/2023 Lab Results Component Value Date HCT 38.7 (L) 05/25/2024 HCT 34.9 (L) 06/04/2023 HCT 33.7 (L) 06/03/2023 Lab Results Component Value Date PLT 257 05/25/2024 PLT 297 06/04/2023 PLT 284 06/03/2023 Lab Results Component Value Date CREAT 0.73 05/25/2024 CREAT 0.81 06/03/2023 CREAT 0.89 08/15/2022 No components found for: TBILI3 Lab Results Component Value Date ALT 17 05/25/2024 ALT 13 06/03/2023 ALT 14 08/15/2022 Lab Results Component Value Date AST 22 05/25/2024 AST 21 06/03/2023 AST 23 08/15/2022 Estimated Creatinine Clearance: 71.7 mL/min (based on SCr of 0.73 mg/dL). ALLERGIES No Known Allergies 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: [facility] current us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 Paroxysmal atrial fibrillation (hcc) Anticoagulation Episode Summary Current INR goal: 2.0-3.0 Assessment: INR result of 1.9 is SUBtherapeutic due to: No obvious cause (patient denies liver, green tea, new herbal/nutritional supplements - such as Boost, Ensure, an increase in vit K foods and/or V8 type juices, any changes in warfarin tablet, or missed doses) Plan: Current Warfarin Dosing As of 08/31/2024 Full warfarin instructions: 1.5 mg every Thu, Sat; 2.5 mg all other days Called and spoke to patient/caregiver Advised patient to continue current weekly dose as noted above Next point of care INR check scheduled on or by 09/28/2024 Patient's caregiver verbalizes understanding of the plan. Patient denies need for refills. Patient advised to call the PAC with any medication changes, bleeding/bruising concerns, recent changes in vitamin k consumption, if any procedures are coming up, if they have been ill or in the hospital, and if they have missed any doses of warfarin. Coretta Jalloh RPh Clinical Pharmacist, Pharmacy Anticoagulation Clinic Pharmacy Anticoagulation Clinic Pager: [phone]. [facility] 08-31-2024 Miscellaneous Notes [facility] Ambulatory Pharmacy Anticoagulation Clinic Anticoagulation Episode Summary Anticoagulation Care Providers Provider Role Specialty Phone number Stas Mora MD Referring Family Medicine [phone] Roby Flores is a 89 year old year old male patient being evaluated today for a Lab INR. Patient is currently on the following 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(s) Warfarin. Labs Lab Results Component Value Date INR 1.9 (H) 08/31/2024 INR 2.5 (H) 08/03/2024 INR 2.1 (H) 07/06/2024 Lab Results Component Value Date HB 11.8 (L) 05/25/2024 HB 10.0 (L) 06/04/2023 HB 9.8 (L) 06/03/2023 Lab Results Component Value Date HCT 38.7 (L) 05/25/2024 HCT 34.9 (L) 06/04/2023 HCT 33.7 (L) 06/03/2023 Lab Results Component Value Date PLT 257 05/25/2024 PLT 297 06/04/2023 PLT 284 06/03/2023 Lab Results Component Value Date CREAT 0.73 05/25/2024 CREAT 0.81 06/03/2023 CREAT 0.89 08/15/2022 No components found for: [id number] Lab Results Component Value Date ALT 17 05/25/2024 ALT 13 06/03/2023 ALT 14 08/15/2022 Lab Results Component Value Date AST 22 05/25/2024 AST 21 06/03/2023 AST 23 08/15/2022 Estimated Creatinine Clearance: 71.7 mL/min (based on SCr of 0.73 mg/dL). 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 Paroxysmal atrial fibrillation (hcc) Anticoagulation Episode Summary Current INR goal: 2.0-3.0 Assessment: INR result of 1.9 is SUBtherapeutic due to: No obvious cause (patient denies liver, green tea, new herbal/nutritional supplements - such as Boost, Ensure, an increase in vit K foods and/or V8 type juices, any changes in warfarin tablet, or missed doses) Plan: Current Warfarin Dosing As of 08/31/2024 Full warfarin instructions: 1.5 mg every Thu, Sat; 2.5 mg all other days Called and spoke to patient/caregiver Advised patient to continue current weekly dose as noted above Next point of care INR check scheduled on or by 09/28/2024 Patient's caregiver verbalizes understanding of the plan. Patient denies need for refills. Patient advised to call the PAC with any medication changes, bleeding/bruising concerns, recent changes in vitamin k consumption, if any procedures are coming up, if they have been ill or in the hospital, and if they have missed any doses of warfarin. Coretta Jalloh RPh Clinical Pharmacist, Pharmacy Anticoagulation Clinic Pharmacy Anticoagulation Clinic Pager: [phone]. documented in this encounter [facility] 08-31-2024 Instructions Luciana Cisneros MD - 08/31/2024 12:08 PM EDT We discussed your dementia and related symptoms: - Your memory and hallucinations have worsened. You are experiencing more frequent hallucinations, including seeing people or figures that are not present. You mentioned that these hallucinations are not frightening to you. - We discussed trying the Rivastigmine patch to help with memory and possibly reduce hallucinations. This patch may have fewer side effects, such as a lower risk of reducing your heart rate, compared to other medications. I will contact the pharmacist to explore options for insurance coverage or discounts for this medication. Once I have more information, I will let Maria Guadalupe know. - Your blood pressure and heart rate were good today (heart rate: 74). If your heart rate remains above 60, we may consider retrying certain medications, but this will depend on cost and side effects. - For now, we will not start medications like Risperidone unless your hallucinations become harmful or significantly bothersome. We discussed your mobility and physical activity: - Your walking has decreased, and you have experienced rigidity and falls in the past. You are able to pull yourself up using a chair when needed. - You have not been attending physical therapy due to cost and preference. If you change your mind, physical therapy could help improve your mobility and reduce the risk of falls. We discussed strategies for managing your hallucinations: - Maria Guadalupe should use situational judgment when responding to your hallucinations. For simple or harmless situations, it may be helpful to play along or redirect your attention. For more complex or impractical scenarios, such as traveling long distances, it is okay to gently explain that the situation is not real. - Maria Guadalupe should continue monitoring your symptoms and let us know if they worsen or if you become frightened by your hallucinations. Next steps: - I will contact the pharmacist to explore options for the Rivastigmine patch and will inform Maria Guadalupe of any updates. - Please monitor your heart rate at home. If it consistently stays above 60, let us know, as this may allow us to consider additional treatment options. - Continue to prioritize safety at home, especially regarding falls. If you experience more frequent falls or mobility issues, let us know. Please reach out if you have any questions or if your symptoms change. documented in this encounter [facility] 08-21-2024 Evaluation note Diagnosis Onset Date Resolution Adult failure to thrive acute J une 2024 10:24am Chronic anticoagulation acute J une 2024 10:24am Contusion of hip acute August 10:24am Fall acute September 01 10:24am History of atrial fibrillation acute September 01, 2024 10:24am History of dementia acute September 01, 2024 10:24am History of TIAs acute August 10:24am Unable to ambulate acute August 212024 10:24am [facility] Work Phone: 1(415) 283-683205-14-2025 Telephone encounter Note* Telephone Encounter - Coretta Jalloh [facility] - 08/03/2024 11:20 AM EDT I have reviewed the below recommendations and agree with plan. Coretta Jalloh PharmD [facility]05-14-2025 Miscellaneous Notes* Telephone Encounter - Coretta Jalloh RPh - 08/03/2024 11:20 AM EDT I have reviewed the below recommendations and agree with plan. Coretta Jalloh PharmD * Telephone Encounter - Adrian ([employer]ana Berry - 08/03/2024 10:57 AM EDT PATIENT CALL Patient called call center regarding missed call. Patient's caregiver called re: returning a call. Read the following to caller: Assessment: INR result of 2.5 is therapeutic Plan: Current Warfarin Dosing As of 08/03/2024 Full warfarin instructions: 1.5 mg every Thu, Sat; 2.5 mg all other days Left voice message For Maria Guadalupe. Advised patient to continue current weekly dose as noted above Next lab INR check scheduled on 08/31/2024 Caregiver verbalized understanding. Will route to [facility] as FYI. Elana Campbell ([employer]) * Telephone Encounter - Coretta Jalloh RP - 08/03/2024 10:41 AM EDT [facility] Ambulatory Pharmacy Anticoagulation Clinic Anticoagulation Episode Summary Anticoagulation Care Providers Provider Role Specialty Phone number Stas Mora MD Referring Family Medicine [phone] Roby Flores is a 88 year old year old male patient being evaluated today for a Lab INR. Patient is currently on the following 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(s) Warfarin. Labs Lab Results Component Value Date INR 2.5 (H) 08/03/2024 INR 2.1 (H) 07/06/2024 INR 2.5 (H) 06/29/2024 Lab Results Component Value Date HB 11.8 (L) 05/25/2024 HB 10.0 (L) 06/04/2023 HB 9.8 (L) 06/03/2023 Lab Results Component Value Date HCT 38.7 (L) 05/25/2024 HCT 34.9 (L) 06/04/2023 HCT 33.7 (L) 06/03/2023 Lab Results Component Value Date PLT 257 05/25/2024 PLT 297 06/04/2023 PLT 284 06/03/2023 Lab Results Component Value Date CREAT 0.73 05/25/2024 CREAT 0.81 06/03/2023 CREAT 0.89 08/15/2022 No components found for: TBILI3 Lab Results Component Value Date ALT 17 05/25/2024 ALT 13 06/03/2023 ALT 14 08/15/2022 Lab Results Component Value Date AST 22 05/25/2024 AST 21 06/03/2023 AST 23 08/15/2022 Estimated Creatinine Clearance: 73.3 mL/min (based on SCr of 0.73 mg/dL). ALLERGIES No Known Allergies 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: [facility] current us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 Paroxysmal atrial fibrillation (hcc) Anticoagulation Episode Summary Current INR goal: 2.0-3.0 Assessment: INR result of 2.5 is therapeutic Plan: Current Warfarin Dosing As of 08/03/2024 Full warfarin instructions: 1.5 mg every Thu, Sat; 2.5 mg all other days Left voice message For Maria Guadalupe. Advised patient to continue current weekly dose as noted above Next lab INR check scheduled on 08/31/2024 Patient advised to call the PAC with any medication changes, bleeding/bruising concerns, recent changes in vitamin k consumption, if any procedures are coming up, if they have been ill or in the hospital, and if they have missed any doses of warfarin. Coretta Jalloh [facility] Clinical Pharmacist, Pharmacy Anticoagulation Clinic Pharmacy Anticoagulation Clinic Pager: [phone]. [facility] Telephone encounter Note * Telephone Encounter - Adrian Huang[employer])Elana - 08/03/2024 10:57 AM EDT PATIENT CALL Patient called call center regarding missed call. Patient's caregiver called re: returning a call. Read the following to caller: Assessment: INR result of 2.5 is therapeutic Plan: Current Warfarin Dosing As of 08/03/2024 Full warfarin instructions: 1.5 mg every Thu, Sat; 2.5 mg all other days Left voice message For Maria Guadalupe. Advised patient to continue current weekly dose as noted above Next lab INR check scheduled on 08/31/2024 Caregiver verbalized understanding. Will route to [facility] as FYI. Elana Huang[employer]ize) [facility]05-14-2025 Telephone encounter Note* Telephone Encounter - Coretta Jalloh RPh - 08/03/2024 10:41 AM EDT [facility] Ambulatory Pharmacy Anticoagulation Clinic Anticoagulation Episode Summary Anticoagulation Care Providers Provider Role Specialty Phone number Stas Mora MD Referring Family Medicine [phone] Roby Flores is a 88 year old year old male patient being evaluated today for a Lab INR. Patient is currently on the following 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(s) Warfarin. Labs Lab Results Component Value Date INR 2.5 (H) 08/03/2024 INR 2.1 (H) 07/06/2024 INR 2.5 (H) 06/29/2024 Lab Results Component Value Date HB 11.8 (L) 05/25/2024 HB 10.0 (L) 06/04/2023 HB 9.8 (L) 06/03/2023 Lab Results Component Value Date HCT 38.7 (L) 05/25/2024 HCT 34.9 (L) 06/04/2023 HCT 33.7 (L) 06/03/2023 Lab Results Component Value Date PLT 257 05/25/2024 PLT 297 06/04/2023 PLT 284 06/03/2023 Lab Results Component Value Date CREAT 0.73 05/25/2024 CREAT 0.81 06/03/2023 CREAT 0.89 08/15/2022 No components found for: [id number] Lab Results Component Value Date ALT 17 05/25/2024 ALT 13 06/03/2023 ALT 14 08/15/2022 Lab Results Component Value Date AST 22 05/25/2024 AST 21 06/03/2023 AST 23 08/15/2022 Estimated Creatinine Clearance: 73.3 mL/min (based on SCr of 0.73 mg/dL). 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 Advised patient to continue current weekly dose as noted above Next lab INR check scheduled on 08/31/2024 Patient advised to call the PAC with any medication changes, bleeding/bruising concerns, recent changes in vitamin k consumption, if any procedures are coming up, if they have been ill or in the hospital, and if they have missed any doses of warfarin. Coretta Jalloh RPh Clinical Pharmacist, Pharmacy Anticoagulation Clinic Pharmacy Anticoagulation Clinic Pager: [phone]. [facility]05-08-2025 History of Present illness Narrative* Stas Mora MD - 07/28/2024 11:20 AM EDT Chief Complaint Patient presents with: Lump: Elbow HPI Roby Flores is a 88 year old male who presents here today for lump. Here today with his for an acute visit. Pt c/o lump on right elbow that's been present for about 1 month. states that pt just told herabout it a few days ago. Denies hitting the elbow on anything. Denies any pain in the area, but canjust feel the lump. No longer taking Aricept due to bradycardia. Was switched to Namenda by Geriatrics, but pt is not taking due to cost of medication. Past medical history, appointments, medications, allergies reviewed. Previous Medical History PAST MEDICAL HISTORY Diagnosis Date Coronary atherosclerosis of unspecified type of vessel, pauma or graft Coronary artery disease Other and unspecified hyperlipidemia Unspecified essential hypertension Essential hypertension Previous Surgical History PAST SURGICAL HISTORY Procedure Laterality Date APPENDECTOMY PERC TRANSL COR ANGIO 2005 last time Percutaneous Transluminal Coronary Angio Status 3 procedures Family History FAMILY HISTORY Problem Relation Age of Onset Arthritis Mother Alcohol/Drug Father Stroke Father Cancer Brother 50 Stomach cancer Patient Allergies ALLERGIES No Known Allergies Current Medications Current Outpatient Medications on File Prior to Visit Medication Sig memantine (NAMENDA) 10 mg tablet Take 1 tablet by mouth two times a day. atorvastatin (LIPITOR) 40 mg tablet Take 1 tablet by mouth daily at bedtime. warfarin (COUMADIN) 2.5 mg tablet Take as directed by anticoagulation clinic warfarin (COUMADIN) 3 mg tablet Take as directed by anticoagulation clinic lisinopril (ZESTRIL) 10 mg tablet Take 1 tablet by mouth once daily. donepezil (ARICEPT) 5 mg tablet Take 1 tablet by mouth daily at bedtime. warfarin (COUMADIN) 1 mg tablet Take 1 tablet by mouth daily as directed. No current facility-administered medications on file prior to visit. Social History Social History Tobacco Use Smoking status: Former Smokeless tobacco: Never Tobacco comments: 30 yaers ago Substance Use Topics Alcohol use: No Drug use: No EXAM: BP 136/78 Pulse (!) 56 Resp 16 Wt 74.1 kg (163 lb 5.8 oz) BMI 22.40 kg/m General Appearance: Well appearing, alert, in no acute distress, well-hydrated, well nourished. Using a cane to ambulate, slow to walk with shuffling. Lungs: Lungs clear to auscultation. No wheezing, rhonchi, rales.. Heart: RRR without murmur, gallop, or rubs. No ectopy. Extremities: R elbow examined. Noted bursa sac on right elbow seen. No pain to palpate. Health Maintenance List Covid-19 Vaccine( season) due on 06/01/2024 Depression Screening due on 2024 Anxiety Screening due on 2024 RSV Vaccine(1 - 1-dose 75+ series) due on 11/25/2024 LDL Cholesterol due on 05/25/2025 Diabetes Screening due on 05/26/2027 DTaP,Tdap,Td Vaccine(2 - Td or Tdap) due on 02/27/2031 Influenza Vaccine Completed Advance Directive Discussion Completed Shingrix Vaccine Completed Pneumococcal Vaccine: 50+ Completed Data reviewed None ASSESSMENT/PLAN: 1. Bursitis of right elbow, unspecified bursa - ICD9: 726.33, ICD10: M70.31 - Advised pt to use ice and wrap elbow to help reduce lump. - Not painful, but if bothersome can refer to Ortho - Did advise pt and that generally not preferred to have drained due to re-occurrence. Follow up prn. I agree with the Chief Complaint, ROS, and Past Histories independently gathered by the clinical patient support tech and the remaining scribed note accurately describes my personal service to the patient. Medical Decision Making: Problems: Low: Acute, uncomplicated illness or injury Risk: Low: Low risk from testing/treatment Medical Decision Making Level: 3 - Low Stas Mora MD The documentation for this note was completed by Rosie Cruz MA acting as scribe for Stas Mora MD. July 28, 2024 11:16 AM. Rosie Cruz MA documented in this encounterC[facility] NoteHNO ID: [id number] Author: STAS MORA MD Service: ? Author Type: Physician Type: Progress Notes Filed: 07/28/2024 11:21 Note Text: Chief Complaint Patient presents with: Lump: Elbow HPI Roby Flores is a 88 year old male who presents here today for lump. Here today with his for an acute visit. Pt c/o lump on right elbow that's been present for about 1 month. states that pt just told her about it a few days ago. Denies hitting the elbow on anything. Denies any pain in the area, but can just feel the lump. No longer taking Aricept due to bradycardia. Was switched to Namenda by Geriatrics, but pt is not taking due to cost of medication. Past medical history, appointments, medications, allergies reviewed. Previous Medical History PAST MEDICAL HISTORY Diagnosis Date Coronary atherosclerosis of unspecified type of vessel, pauma or graft Coronary artery disease Other and unspecified hyperlipidemia Unspecified essential hypertension Essential hypertension Previous Surgical History PAST SURGICAL HISTORY Procedure Laterality Date APPENDECTOMY PERC TRANSL COR ANGIO 2005 last time Percutaneous Transluminal Coronary Angio Status 3 procedures Family History FAMILY HISTORY Problem Relation Age of Onset Arthritis Mother Alcohol/Drug Father Stroke Father Cancer Brother 50 Stomach cancer Patient Allergies ALLERGIES No Known Allergies Current Medications Current Outpatient Medications on File Prior to Visit Medication Sig memantine (NAMENDA) 10 mg tablet Take 1 tablet by mouth two times a day. atorvastatin (LIPITOR) 40 mg tablet Take 1 tablet by mouth daily at bedtime. warfarin (COUMADIN) 2.5 mg tablet Take as directed by anticoagulation clinic warfarin (COUMADIN) 3 mg tablet Take as directed by anticoagulation clinic lisinopril (ZESTRIL) 10 mg tablet Take 1 tablet by mouth once daily. donepezil (ARICEPT) 5 mg tablet Take 1 tablet by mouth daily at bedtime. warfarin (COUMADIN) 1 mg tablet Take 1 tablet by mouth daily as directed. No current facility-administered medications on file prior to visit. Social History Social History Tobacco Use Smoking status: Former Smokeless tobacco: Never Tobacco comments: 30 yaers ago Substance Use Topics Alcohol use: No Drug use: No EXAM: BP 136/78 Pulse (!) 56 Resp 16 Wt 74.1 kg (163 lb 5.8 oz) BMI 22.40 kg/m? General Appearance: Well appearing, alert, in no acute distress, well-hydrated, well nourished. Using a cane to ambulate, slow to walk with shuffling. Lungs: Lungs clear to auscultation. No wheezing, rhonchi, rales.. Heart: RRR without murmur, gallop, or rubs. No ectopy. Extremities: R elbow examined. Noted bursa sac on right elbow seen. No pain to palpate. Health Maintenance List Covid-19 Vaccine( season) due on 06/01/2024 Depression Screening due on 2024 Anxiety Screening due on 2024 RSV Vaccine(1 - 1-dose 75+ series) due on 11/25/2024 LDL Cholesterol due on 05/25/2025 Diabetes Screening due on 05/26/2027 DTaP,Tdap,Td Vaccine(2 - Td or Tdap) due on 02/27/2031 Influenza Vaccine Completed Advance Directive Discussion Completed Shingrix Vaccine Completed Pneumococcal Vaccine: 50+ Completed Data reviewed None ASSESSMENT/PLAN: 1. Bursitis of right elbow, unspecified bursa - ICD9: 726.33, ICD10: M70.31 - Advised pt to use ice and wrap elbow to help reduce lump. - Not painful, but if bothersome can refer to Ortho - Did advise pt and that generally not preferred to have drained due to re-occurrence. Follow up prn. I agree with the Chief Complaint, ROS, and Past Histories independently gathered by the clinical patient support tech and the remaining scribed note accurately describes my personal service to the patient. Medical Decision Making: Problems: Low: Acute, uncomplicated illness or injury Risk: Low: Low risk from testing/treatment Medical Decision Making Level: 3 - Low Stas Mora MD The documentation for this note was completed by Rosie Cruz MA acting as scribe for Stas Mora MD. July 28, 2024 11:[address] [facility]04-16-2025 Telephone encounter Note* Telephone Encounter - Coretta Jalloh [facility] - 07/06/2024 10:11 AM EDT [facility] Ambulatory Pharmacy Anticoagulation Clinic Anticoagulation Episode Summary Anticoagulation Care Providers Provider Role Specialty Phone number Stas Mora MD Referring Family Medicine [phone] Roby Flores is a 88 year old year old male patient being evaluated today for a Telemanagement visit. Patient is currently on the following 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(s) Warfarin. Labs PT INR (no units) Date Value 05/19/2022 1.7 05/15/2021 2.3 04/17/2021 1.9 INR (no units) Date Value 07/06/2024 2.1 06/29/2024 2.5 05/25/2024 2.9 Hemoglobin (g/dL) Date Value 05/25/2024 11.8 Hematocrit (%) Date Value 05/25/2024 38.7 Platelet Count (k/uL) Date Value 05/25/2024 257 Creatinine (mg/dL) Date Value 05/25/2024 0.73 06/03/2023 0.81 08/15/2022 0.89 03/13/2021 0.80 08/28/2020 0.83 Bilirubin, Total (mg/dL) Date Value 05/25/2024 0.8 03/13/2021 0.5 ALT (U/L) Date Value 05/25/2024 17 03/13/2021 24 AST (U/L) Date Value 05/25/2024 22 03/13/2021 24 Estimated Creatinine Clearance: 73 mL/min (based on SCr of 0.73 mg/dL). 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 Paroxysmal atrial fibrillation (hcc) Anticoagulation Episode Summary Current INR goal: 2.0-3.0 Assessment: INR result of 2.1 is therapeutic Plan: Current Warfarin Dosing As of 07/06/2024 Full warfarin instructions: 1.5 mg every Thu, Sat; 2.5 mg all other days Called and spoke to patient/caregiver Advised patient to continue current weekly dose as noted above Next lab INR check scheduled on 08/03/2024 Patient's caregiver, Maria Guadalupe, verbalizes understanding of the plan. Patient denies need for refills. Patient advised to call the PAC with any medication changes, bleeding/bruising concerns, recent changes in vitamin k consumption, if any procedures are coming up, if they have been ill or in the hospital, and if they have missed any doses of warfarin. Coretta Jalloh RPh Clinical Pharmacist, Pharmacy Anticoagulation Clinic Pharmacy Anticoagulation Clinic Pager: [phone]. [facility]04-16-2025 Miscellaneous Notes* Telephone Encounter - Coretta Jalloh [facility] - 07/06/2024 10:11 AM EDT [facility] Ambulatory Pharmacy Anticoagulation Clinic Anticoagulation Episode Summary Anticoagulation Care Providers Provider Role Specialty Phone number Stas Mora MD Referring Family Medicine [phone] Roby Flores is a 88 year old year old male patient being evaluated today for a Telemanagement visit. Patient is currently on the following 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(s) Warfarin. Labs PT INR (no units) Date Value 05/19/2022 1.7 05/15/2021 2.3 04/17/2021 1.9 INR (no units) Date Value 07/06/2024 2.1 06/29/2024 2.5 05/25/2024 2.9 Hemoglobin (g/dL) Date Value 05/25/2024 11.8 Hematocrit (%) Date Value 05/25/2024 38.7 Platelet Count (k/uL) Date Value 05/25/2024 257 Creatinine (mg/dL) Date Value 05/25/2024 0.73 06/03/2023 0.81 08/15/2022 0.89 03/13/2021 0.80 08/28/2020 0.83 Bilirubin, Total (mg/dL) Date Value 05/25/2024 0.8 03/13/2021 0.5 ALT (U/L) Date Value 05/25/2024 17 03/13/2021 24 AST (U/L) Date Value 05/25/2024 22 03/13/2021 24 Estimated Creatinine Clearance: 73 mL/min (based on SCr of 0.73 mg/dL). ALLERGIES No Known Allergies 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: [facility] current us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 Paroxysmal atrial fibrillation (hcc) Anticoagulation Episode Summary Current INR goal: 2.0-3.0 Assessment: INR result of 2.1 is therapeutic Plan: Current Warfarin Dosing As of 07/06/2024 Full warfarin instructions: 1.5 mg every Thu, Sat; 2.5 mg all other days Called and spoke to patient/caregiver Advised patient to continue current weekly dose as noted above Next lab INR check scheduled on 08/03/2024 Patient's caregiver, Maria Guadalupe, verbalizes understanding of the plan. Patient denies need for refills. Patient advised to call the PAC with any medication changes, bleeding/bruising concerns, recent changes in vitamin k consumption, if any procedures are coming up, if they have been ill or in the hospital, and if they have missed any doses of warfarin. Coretta Jalloh RPh Clinical Pharmacist, Pharmacy Anticoagulation Clinic Pharmacy Anticoagulation Clinic Pager: [phone]. documented in this encounterC[facility] Telephone encounter Note * Telephone Encounter - Coretta Jalloh RPh - 06/29/2024 9:52 AM EDT [facility] Ambulatory Pharmacy Anticoagulation Clinic Anticoagulation Episode Summary Anticoagulation Care Providers Provider Role Specialty Phone number Stas Mora MD Referring Family Medicine [phone] Roby Flores is a 88 year old year old male patient being evaluated today for a Lab INR. Patient is currently on the following 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(s) Warfarin. Labs PT INR (no units) Date Value 05/19/2022 1.7 05/15/2021 2.3 04/17/2021 1.9 INR (no units) Date Value 06/29/2024 2.5 05/25/2024 2.9 04/27/2024 2.6 Hemoglobin (g/dL) Date Value 05/25/2024 11.8 Hematocrit (%) Date Value 05/25/2024 38.7 Platelet Count (k/uL) Date Value 05/25/2024 257 Creatinine (mg/dL) Date Value 05/25/2024 0.73 06/03/2023 0.81 08/15/2022 0.89 03/13/2021 0.80 08/28/2020 0.83 Bilirubin, Total (mg/dL) Date Value 05/25/2024 0.8 03/13/2021 0.5 ALT (U/L) Date Value 05/25/2024 17 03/13/2021 24 AST (U/L) Date Value 05/25/2024 22 03/13/2021 24 Estimated Creatinine Clearance: 73 mL/min (based on SCr of 0.73 mg/dL). 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 Paroxysmal atrial fibrillation (hcc) Anticoagulation Episode Summary Current INR goal: 2.0-3.0 Assessment: INR result of 2.5 is therapeutic Plan: Current Warfarin Dosing As of 06/29/2024 Full warfarin instructions: 1.5 mg every Thu, Sat; 2.5 mg all other days [facility] Records message Advised patient to continue current weekly dose as noted above Next home INR check scheduled on 07/06/2024 Patient advised to call the PAC with any medication changes, bleeding/bruising concerns, recent changes in vitamin k consumption, if any procedures are coming up, if they have been ill or in the hospital, and if they have missed any doses of warfarin. Coretta Jalloh RPh Clinical Pharmacist, Pharmacy Anticoagulation Clinic Pharmacy Anticoagulation Clinic Pager: [phone]. [facility]04-09-2025 Miscellaneous Notes* Telephone Encounter - Coretta Jalloh RPh - 06/29/2024 9:52 AM EDT [facility] Ambulatory Pharmacy Anticoagulation Clinic Anticoagulation Episode Summary Anticoagulation Care Providers Provider Role Specialty Phone number Stas Mora MD Referring Family Medicine [phone] Roby Flores is a 88 year old year old male patient being evaluated today for a Lab INR. Patient is currently on the following 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(s) Warfarin. Labs PT INR (no units) Date Value 05/19/2022 1.7 05/15/2021 2.3 04/17/2021 1.9 INR (no units) Date Value 06/29/2024 2.5 05/25/2024 2.9 04/27/2024 2.6 Hemoglobin (g/dL) Date Value 05/25/2024 11.8 Hematocrit (%) Date Value 05/25/2024 38.7 Platelet Count (k/uL) Date Value 05/25/2024 257 Creatinine (mg/dL) Date Value 05/25/2024 0.73 06/03/2023 0.81 08/15/2022 0.89 03/13/2021 0.80 08/28/2020 0.83 Bilirubin, Total (mg/dL) Date Value 05/25/2024 0.8 03/13/2021 0.5 ALT (U/L) Date Value 05/25/2024 17 03/13/2021 24 AST (U/L) Date Value 05/25/2024 22 03/13/2021 24 Estimated Creatinine Clearance: 73 mL/min (based on SCr of 0.73 mg/dL). ALLERGIES No Known Allergies 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: [facility] current us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 Paroxysmal atrial fibrillation (hcc) Anticoagulation Episode Summary Current INR goal: 2.0-3.0 Assessment: INR result of 2.5 is therapeutic Plan: Current Warfarin Dosing As of 06/29/2024 Full warfarin instructions: 1.5 mg every Thu, Sat; 2.5 mg all other days [facility] Records message Advised patient to continue current weekly dose as noted above Next home INR check scheduled on 07/06/2024 Patient advised to call the PAC with any medication changes, bleeding/bruising concerns, recent changes in vitamin k consumption, if any procedures are coming up, if they have been ill or in the hospital, and if they have missed any doses of warfarin. Coretta Jalloh RPh Clinical Pharmacist, Pharmacy Anticoagulation Clinic Pharmacy Anticoagulation Clinic Pager: [phone]. documented in this encounterC[facility]03-[facility] Instructions* Patient Instructions* Luciana Cisneros MD - 06/01/2024 3:39 PM EDT Look into adult date care once or twice a week. Physical Therapy for vascular parkinsonism documented in this encounterC[facility]03-[facility]25 NoteHNO ID: [id number] Author: LUCIANA CISNEROS MD Service: ? Author Type: Physician Type: Progress Notes Filed: 07/14/2024 16:10 Note Text: [facility] Geriatric Medicine Initial Consult Roby Flores is a 88 year old year old male who comes for Comprehensive Geriatric Assessment. Pt accompanied by: daughter Anabella and SO- Maria Guadalupe. Caregivers involved in care: HPI: This is a 88-year-old gentleman with a past medical history of hypertension, paroxysmal A-fib, hyperlipidemia, bph,who is here for assessment of memory concerns. He is already on Aricept 5 mg. For over a year she has been declining in memory. Initially it seemed insidious like he was but more now. He needs supervising for a lot of his instrumental activities of daily living, family noted paranoia, and some delusions of people coming to get him because he owes them money. He also has been talking lately of animals when he grew up in farm house, was searching for a dog all over his house, but they have not had pets for the past 20 years or more. He denies constipation, decrease in smell, tremors, RBD, hallucination, head trauma, but he does have change In his handwriting. Daughter and SO note that he is forgetting appointments, repeats himself. June 01, 2024 Here along with his significant other and daughter and would like again to discuss his MRI results of the brain. Reviewed in detail the extensive white matter changes that are seen in his brain along with the different volumes including hippocampal volume of 15% tile.. The superior temporal gyrus and supramarginal gyrus are both the 4th percentile. Family wanted to know approximate timelines and so we did the E prognosis for him and there is a 52% chance that he will not be around in 2 years and 91 percentile chance he will be around 5 years. This was discussed in detail with the family. Patient was not able to understand completely what we were talking about. The significant other is kind and is taking care of him but she is getting worn out and she is hoping to look into places to keep him. notes that he does not have RBD, had hallucinations in the past but not too many of late, he does sleep a lot, is tired and his heart rate is only 46-49, he does shuffle and into his way around the house. There is some, concern of wandering. Any Family History of dementia? No Are you or your spouse a ? Yes Safety: Does pt know his/her address? YES only half of it. What would you do if there was a fire? Get out How would you call for help? Yes but did not know 911 Social History: Primary language: Armenian Marital Status: Single Living situation: Home w/ SO Socially engaged? (participates in activities such as clubs, tenriism, community center, sports, games, visiting friends/relatives, etc?): They go out to eat sometimes, not as often, most of the time they order stuff and pick it up at home. Caregiver Holiday and Stress Are your feeling overwhelmed? A little Do you have concerns about your own health? Yes Are you neglecting your own needs? A little Do you have financial concerns? YES Do your fear loss of employment? NO Do you have concerns about verbal/physical abuse? NO Do you feel that you are still capable of taking care of your relative? YES at the current level of care Are you willing to continue being in the caregiver role? YES B-ADLs: (I=independent,A=assistance,D=dependent) ?Bathing: I, needs reminders occasionally Dressing: I, but uses the same clothes sometimes Toileting: I, mostly, sometimes needs help Transferring:Other: he has been shuffling recently , Continence: I, he has had urine accidents a lot in the past. Not recently Feeding: I, I-ADLs: Ability to use phone: A, Shopping: D, Cooking: D, but he never did cooking. Housekeeping: I, still does the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 81 mg chewable tablet, Sig Take 1 tablet by mouth once daily., Start Date 12/22/22, End Date 12/17/23, Taking? 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 YES - Type?: likely functional incontinence Constipation/Change in bowel habits: No Vision Positive for vision impairment and wears glasses Follows with shoe planner:YES Hearing - Hearing aid : Hearing impairment, wears bilateral hearing aids Falls: .: Falls in the last 12 months: Positive: last week, went to the barn, and tripped and fell. If + falls: Physical Exam: General: Well-nourished, kempt Ambulatory: cane Mobility Aid: Cane Head: Normocephalic Eyes: conjunctiva/corneas normal, EOMI Ears: R TM -has hearing aids in. L has hearing aids in. Oropharynx: Moist without lesions, teeth in good repair Neck: supple and no adenopathy. Cardio: regular rate and rhythm. Pulmonary: Lungs clear to auscultation bilaterally Extremities: Extremities normal. Sensations are normal in the feet b/l No deformities, edema, or skin discoloration. Musculoskeletal: overall strength is normal. Neuro:Deep Tendon reflexes :2/4, Cranial nerves are normal. Extremities: Extremities normal. No deformities, edema, or skin discoloration. Musculoskeletal: No rigidity, tremor or bradykinesia is noted. Rhomberg: Negative. Neuro:Deep Tendon reflexes :2/4, B/l legs Lurias test: was not done A tandem gait testing was unable to be done. Gait: Unsteadiness: YES Shuffling: YES sometimes he is shuffling Tremors: NO Slowness: YES [place] Cognitive Exam (MOCA): 18/30 CDR Dementia Scale 1) Subjective Memory Loss: YES 2) Measurable Memory Loss: YES 3) IADLs: YES 4) BADLs: YES Driving Safely: No < 50% 6) Medications: CHEI Level: CDR 5 Depression Screening/Evaluation: PHQ- 5 Labs: None available today Brain Imaging:None available today (F03.90) Dementia, unspecified dementia severity, unspecified dementia type, unspecified whether behavioral, psychotic, or mood disturbance or anxiety (HCC) Comment: Plan: CONSULT TO GERIATRICS Assessment and Plan: I. Medical /Mental Status/Decision Making Capacity 1-Mentation # Subjective memory loss with measurable memory loss with MOCA score of 18/30 ... Patient does havefunctional impairment. 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 Afib could be contributing to the presentation. Not on medication that could be contributing, he is on aricept at 5 mgs but taking it at night time, discussed that he should take in the morning. Though he has hearing aids he still cannot hear very well, which may be contributing to decrease in cognition. Has not been exercising. More to himself and does not have social interactions CDR 2 FAST 08/27 Patient and family are looking for an explanation of his condition and would like to know how to plan for him in the future Plan: He will need imaging, labs , tsh and vit d ,and optimization of medications. Please get the mri done in [place] Take aricept in the morning Do Physical Therapy Labs today See me after the mri. We discussed adult daycare to help with bathing and supervision once or twice a week. We also discussed Meals on Wheels or other food options to help the caregiver who is getting for him. 2-Mobility -- Has been falling as he does not lift his legs when walking, does not complain of back or legs pains. notes shuffling, was advised Physical Therapy in the past but he did not want to pay the co pays although he is willing to do it now Plan - Physical Therapy 3-Medications and chronic medical conditions He is on blood thinners, we discussed the importance of optimizing balance and moblity to prevent bleeding episodes from falling. Emphasized the importance of exercise in him. 4- Matters Most - - has HCPOA, nominated , daughter will be making the decisions. REFERRALS AND RECOMMENDATIONS 1. Discussed the cognitive benefits of memory exercises and reviewed examples 2. Discussed the cognitive benefits of physical exercise and socialization Luciana Cisneros MD [facility] documented in this encounterCleveland [facility]02-03-2025 Telephone encounter Note * Telephone Encounter - Marian Corona RN - 04/25/2024 2:30 PM EST Significant other (Maria Guadalupe) returns call and provider message reviewed. Transferred to schedule consult to geriatrics. Marian Corona RN [facility]02-03-2025 Miscellaneous Notes* Telephone Encounter - Marian Corona RN - 04/25/2024 2:30 PM EST Significant other (Maria Guadalupe) returns call and provider message reviewed. Transferred to schedule consult to geriatrics. Marian Corona RN * Telephone Encounter - Marta Palacio MA - 04/25/2024 2:20 PM EST Message left for pt to call back. Marta Palacio MA * Telephone Encounter - Stas Mora MD - 04/25/2024 2:18 PM EST I would suggest a consult to Geriatrics for further evaluation of his memory issues Stas Mora MD * Telephone Encounter - Anabella Salazar LPN - 04/25/2024 10:35 AM EST Pt's SO Gabby, calls to report pt's memory issues are getting worse. Gabby reports pt tells others he has dreams but they are things he is really doing. Pt will look for letters or papers that do not exist. Gabby reports pt was looking for his dog that he had 30 years ago. Gabby reports she does not know what the next step is for pt but she is having a hard time with pt. Scheduled an appt on 04/29. Gabby and pt's daughter will be with pt at appt. Anabella Salazar LPN documented in this encounterCleveland Clinic [facility]02-03-2025 Telephone encounter Note * Telephone Encounter - Marta Palacio MA - 04/25/2024 2:20 PM EST Message left for pt to call back. Marta Palacio MA [facility]02-03-2025 Telephone encounter Note* Telephone Encounter - Stas Mora MD - 04/25/2024 2:18 PM EST I would suggest a consult to Geriatrics for further evaluation of his memory issues Stas Mora MD [facility]02-03-2025 Telephone encounter Note* Telephone Encounter - Anabella Salazar LPN - 04/25/2024 10:35 AM EST Pt's SO Gabby, calls to report pt's memory issues are getting worse. Gabby reports pt tells others he has dreams but they are things he is really doing. Pt will look for letters or papers that do not exist. Gabby reports pt was looking for his dog that he had 30 years ago. Gabby reports she does not know what the next step is for pt but she is having a hard time with pt. Scheduled an appt on 04/29. Gabby and pt's daughter will be with pt at appt. Anabella Salazar LPN [facility]01-22-2025 Telephone encounter Note* Telephone Encounter - Coretta Jalloh [facility] - 04/13/2024 11:04 AM EST [facility] Ambulatory Pharmacy Anticoagulation Clinic Anticoagulation Episode Summary Anticoagulation Care Providers Provider Role Specialty Phone number Stas Mora MD Referring Family Medicine [phone] Roby Flores is a 88 year old year old male patient being evaluated today for a Telemanagement visit. Patient is currently on the following 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(s) Warfarin. Labs PT INR (no units) Date Value 05/19/2022 1.7 05/15/2021 2.3 04/17/2021 1.9 INR (no units) Date Value 04/13/2024 3.2 03/30/2024 3.5 03/17/2024 3.8 Hemoglobin (g/dL) Date Value 06/04/2023 10.0 Hematocrit (%) Date Value 06/04/2023 34.9 Platelet Count (k/uL) Date Value 06/04/2023 297 Creatinine (mg/dL) Date Value 06/03/2023 0.81 08/15/2022 0.89 02/21/2022 0.85 03/13/2021 0.80 08/28/2020 0.83 Bilirubin, Total (mg/dL) Date Value 06/03/2023 0.6 03/13/2021 0.5 ALT (U/L) Date Value 06/03/2023 13 03/13/2021 24 AST (U/L) Date Value 06/03/2023 21 03/13/2021 24 CrCl cannot be calculated (Patient's most recent lab result is older than the maximum 180 days allowed.). 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 Paroxysmal atrial fibrillation (hcc) Anticoagulation Episode Summary Current INR goal: 2.0-3.0 Assessment: INR result of 3.2 is SUPRAtherapeutic due to: unknown cause - did not speak to patient despite recent dose decrease. Plan: Current Warfarin Dosing As of 04/13/2024 Full warfarin instructions: 1.5 mg every Thu, Sat; 2.5 mg all other days Left voice message On both home and mobile ([employer]). Advised patient to decrease total weekly regimen Next lab INR check scheduled on 04/27/2024 Will try to reach out again to ensure they got the message to adjust his dose. Patient advised to call the PAC with any medication changes, bleeding/bruising concerns, recent changes in vitamin k consumption, if any procedures are coming up, if they have been ill or in the hospital, and if they have missed any doses of warfarin. Coretta Jalloh RPh Clinical Pharmacist, Pharmacy Anticoagulation Clinic Pharmacy Anticoagulation Clinic Pager: [phone]. [facility]01-22-2025 Miscellaneous Notes* Telephone Encounter - Coretta Jalloh, [facility] - 04/13/2024 11:04 AM EST [facility] Ambulatory Pharmacy Anticoagulation Clinic Anticoagulation Episode Summary Anticoagulation Care Providers Provider Role Specialty Phone number Stas Mora MD Referring Family Medicine [phone] Roby Flores is a 88 year old year old male patient being evaluated today for a Telemanagement visit. Patient is currently on the following 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(s) Warfarin. Labs PT INR (no units) Date Value 05/19/2022 1.7 05/15/2021 2.3 04/17/2021 1.9 INR (no units) Date Value 04/13/2024 3.2 03/30/2024 3.5 03/17/2024 3.8 Hemoglobin (g/dL) Date Value 06/04/2023 10.0 Hematocrit (%) Date Value 06/04/2023 34.9 Platelet Count (k/uL) Date Value 06/04/2023 297 Creatinine (mg/dL) Date Value 06/03/2023 0.81 08/15/2022 0.89 02/21/2022 0.85 03/13/2021 0.80 08/28/2020 0.83 Bilirubin, Total (mg/dL) Date Value 06/03/2023 0.6 03/13/2021 0.5 ALT (U/L) Date Value 06/03/2023 13 03/13/2021 24 AST (U/L) Date Value 06/03/2023 21 03/13/2021 24 CrCl cannot be calculated (Patient's most recent lab result is older than the maximum 180 days allowed.). 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 Paroxysmal atrial fibrillation (hcc) Anticoagulation Episode Summary Current INR goal: 2.0-3.0 Assessment: INR result of 3.2 is SUPRAtherapeutic due to: unknown cause - did not speak to patient despite recent dose decrease. Plan: Current Warfarin Dosing As of 04/13/2024 Full warfarin instructions: 1.5 mg every Thu, Sat; 2.5 mg all other days Left voice message On both home and mobile ([employer]). Advised patient to decrease total weekly regimen Next lab INR check scheduled on 04/27/2024 Will try to reach out again to ensure they got the message to adjust his dose. Patient advised to call the PAC with any medication changes, bleeding/bruising concerns, recent changes in vitamin k consumption, if any procedures are coming up, if they have been ill or in the hospital, and if they have missed any doses of warfarin. Coretta Jalloh RPh Clinical Pharmacist, Pharmacy Anticoagulation Clinic Pharmacy Antico[facility] Pager: [phone]. documented [facility] encounterC[facility] Telephone encounter Note * Telephone Encounter - Coretta Jalloh RPh - 03/30/2024 9:45 AM EST [facility] Amb[facility] Anticoagulation Episode Summary Anticoagulation Care Providers Provider Role Specialty Phone number Stas Mora MD Referring Family Medicine [phone] Roby Flores is a 88 year old year old male patient being evaluated today for a Lab INR. Patient is currently on the following 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(s) Warfarin. Labs PT INR (no units) Date Value 05/19/2022 1.7 05/15/2021 2.3 04/17/2021 1.9 INR (no units) Date Value 03/30/2024 3.5 03/17/2024 3.8 03/03/2024 3.6 Hemoglobin (g/dL) Date Value 06/04/2023 10.0 Hematocrit (%) Date Value 06/04/2023 34.9 Platelet Count (k/uL) Date Value 06/04/2023 297 Creatinine (mg/dL) Date Value 06/03/2023 0.81 08/15/2022 0.89 02/21/2022 0.85 03/13/2021 0.80 08/28/2020 0.83 Bilirubin, Total (mg/dL) Date Value 06/03/2023 0.6 03/13/2021 0.5 ALT (U/L) Date Value 06/03/2023 13 03/13/2021 24 AST (U/L) Date Value 06/03/2023 21 03/13/2021 24 CrCl cannot be calculated (Patient's most recent lab result is older than the maximum 180 days allowed.). ALLERGIES No Known Allergies 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: [facility] current us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 Paroxysmal atrial fibrillation (hcc) Anticoagulation Episode Summary Current INR goal: 2.0-3.0 Assessment: INR result of 3.5 is SUPRAtherapeutic due to: No obvious cause (patient denies medication change, grapefruit/cranberry/pomegranate/lazaro ingestion, OTC medication use, change in herbal/nutritional supplement, accidental overdosage, change in warfarin tablet shape or color, change in vit K consumption, recent illness (NVD, fever), any changes to general health, changes in tobacco use, or EtOH consumption) Maria Guadalupe said his appetite has been less but hasn't changed much recently. We have been reducing his dose for some time. Plan: Current Warfarin Dosing As of 03/30/2024 Full warfarin instructions: 03/30: 1.25 mg; Otherwise 1.5 mg every Thu; 2.5 mg all other days Called and spoke to patient/caregiver Advised patient to decrease dose for 1 day and decrease total weekly regimen Next lab INR check scheduled on 04/13/2024 Patient's caregiver verbalizes understanding of the plan. Patient denies need for refills. Patient advised to call the PAC with any medication changes, bleeding/bruising concerns, recent changes in vitamin k consumption, if any procedures are coming up, if they have been ill or in the hospital, and if they have missed any doses of warfarin. Coretta Jalloh RPh Clinical Pharmacist, Pharmacy Anticoagulation Clinic Pharmacy Anticoagulation [facility] Pager: [phone]. [facility]01[facility] Miscellaneous Notes* Telephone Encounter - Coretta Jalloh RPh - 03/30/2024 9:45 AM EST [facility] Ambulatory Pharm[facility] Anticoagulation Clinic Anticoagulation Episode Summary Anticoagulation Care Providers Provider Role Specialty Phone number Stas Mora MD Referring Family Medicine [phone] Roby Flores is a 88 year old year old male patient being evaluated today for a Lab INR. Patient is currently on the following 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(s) Warfarin. Labs PT INR (no units) Date Value 05/19/2022 1.7 05/15/2021 2.3 04/17/2021 1.9 INR (no units) Date Value 03/30/2024 3.5 03/17/2024 3.8 03/03/2024 3.6 Hemoglobin (g/dL) Date Value 06/04/2023 10.0 Hematocrit (%) Date Value 06/04/2023 34.9 Platelet Count (k/uL) Date Value 06/04/2023 297 Creatinine (mg/dL) Date Value 06/03/2023 0.81 08/15/2022 0.89 02/21/2022 0.85 03/13/2021 0.80 08/28/2020 0.83 Bilirubin, Total (mg/dL) Date Value 06/03/2023 0.6 03/13/2021 0.5 ALT (U/L) Date Value 06/03/2023 13 03/13/2021 24 AST (U/L) Date Value 06/03/2023 21 03/13/2021 24 CrCl cannot be calculated (Patient's most recent lab result is older than the maximum 180 days allowed.). ALLERGIES No Known Allergies 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: [facility] current us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 Paroxysmal atrial fibrillation (hcc) Anticoagulation Episode Summary Current INR goal: 2.0-3.0 Assessment: INR result of 3.5 is SUPRAtherapeutic due to: No obvious cause (patient denies medication change, grapefruit/cranberry/pomegranate/lazaro ingestion, OTC medication use, change in herbal/nutritional supplement, accidental overdosage, change in warfarin tablet shape or color, change in vit K consumption, recent illness (NVD, fever), any changes to general health, changes in tobacco use, or EtOH consumption) Maria Guadalupe said his appetite has been less but hasn't changed much recently. We have been reducing his dose for some time. Plan: Current Warfarin Dosing As of 03/30/2024 Full warfarin instructions: 03/30: 1.25 mg; Otherwise 1.5 mg every Wed; 2.5 mg all other days Called and spoke to patient/caregiver Advised patient to decrease dose for 1 day and decrease total weekly regimen Next lab INR check scheduled on 04/13/2024 Patient's caregiver verbalizes understanding of the plan. Patient denies need for refills. Patient advised to call the PAC with any medication changes, bleeding/bruising concerns, recent changes in vitamin k consumption, if any procedures are coming up, if they have been ill or in the hospital, and if they have missed any doses of warfarin. Coretta Jalloh RPh Clinical Pharmacist, Pharmacy Anticoagulation Clinic Pharmacy Anticoagulation Clinic Pager: [phone]. documented in this encounterC[facility] Telephone encounter Note * Telephone Encounter - Josy Gandhi RPh - 03/17/2024 9:34 AM EST [facility] Ambulatory Pharm[facility] Anticoagulation Clinic Anticoagulation Episode Summary Anticoagulation Care Providers Provider Role Specialty Phone number Stas Mora MD Referring Family Medicine [phone] Roby Flores is a 88 year old year old male patient being evaluated today for a Lab INR. Patient is currently on the following 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(s) Warfarin. Labs PT INR (no units) Date Value 05/19/2022 1.7 05/15/2021 2.3 04/17/2021 1.9 INR (no units) Date Value 03/17/2024 3.8 03/03/2024 3.6 02/10/2024 3.3 Hemoglobin (g/dL) Date Value 06/04/2023 10.0 Hematocrit (%) Date Value 06/04/2023 34.9 Platelet Count (k/uL) Date Value 06/04/2023 297 Creatinine (mg/dL) Date Value 06/03/2023 0.81 08/15/2022 0.89 02/21/2022 0.85 03/13/2021 0.80 08/28/2020 0.83 Bilirubin, Total (mg/dL) Date Value 06/03/2023 0.6 03/13/2021 0.5 ALT (U/L) Date Value 06/03/2023 13 03/13/2021 24 AST (U/L) Date Value 06/03/2023 21 03/13/2021 24 CrCl cannot be calculated (Patient's most recent lab result is older than the maximum 180 days allowed.). ALLERGIES No Known Allergies 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: [facility] current us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 Paroxysmal atrial fibrillation (hcc) Anticoagulation Episode Summary Current INR goal: 2.0-3.0 Assessment: INR result of 3.8 is SUPRAtherapeutic due to: No obvious cause (patient denies medication change, grapefruit/cranberry/pomegranate/lazaro ingestion, OTC medication use, change in herbal/nutritional supplement, accidental overdosage, change in warfarin tablet shape or color, change in vit K consumption, recent illness (NVD, fever), any changes to general health, changes in tobacco use, or EtOH consumption) Plan: Current Warfarin Dosing As of 03/17/2024 Full warfarin instructions: 03/17: Hold; Otherwise 3 mg every Thu; 2.5 mg all other days Called and spoke to patient/caregiver Advised patient to hold 1 dose then decrease current regimen Next lab INR check scheduled on 03/31/2024 Patient's caregiver verbalizes understanding of the plan. Patient denies need for refills. Patient advised to call the PAC with any medication changes, bleeding/bruising concerns, recent changes in vitamin k consumption, if any procedures are coming up, if they have been ill or in the hospital, and if they have missed any doses of warfarin. Josy Gandhi RPh Clinical Pharmacist, Pharmacy Anticoagulation Clinic Pharmacy Anticoagulation Clinic Pager: [phone]. [facility] Miscellaneous Notes* Telephone Encounter - Josy Gandhi RPh - 03/17/2024 9:34 AM EST [facility] Ambulatory Pharmacy Anticoagulation Clinic Anticoagulation Episode Summary Anticoagulation Care Providers Provider Role Specialty Phone number Stas Mora MD Referring Family Medicine [phone] Roby Flores is a 88 year old year old male patient being evaluated today for a Lab INR. Patient is currently on the following 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(s) Warfarin. Labs PT INR (no units) Date Value 05/19/2022 1.7 05/15/2021 2.3 04/17/2021 1.9 INR (no units) Date Value 03/17/2024 3.8 03/03/2024 3.6 02/10/2024 3.3 Hemoglobin (g/dL) Date Value 06/04/2023 10.0 Hematocrit (%) Date Value 06/04/2023 34.9 Platelet Count (k/uL) Date Value 06/04/2023 297 Creatinine (mg/dL) Date Value 06/03/2023 0.81 08/15/2022 0.89 02/21/2022 0.85 03/13/2021 0.80 08/28/2020 0.83 Bilirubin, Total (mg/dL) Date Value 06/03/2023 0.6 03/13/2021 0.5 ALT (U/L) Date Value 06/03/2023 13 03/13/2021 24 AST (U/L) Date Value 06/03/2023 21 03/13/2021 24 CrCl cannot be calculated (Patient's most recent lab result is older than the maximum 180 days allowed.). ALLERGIES No Known Allergies 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: [facility] current us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 Paroxysmal atrial fibrillation (hcc) Anticoagulation Episode Summary Current INR goal: 2.0-3.0 Assessment: INR result of 3.8 is SUPRAtherapeutic due to: No obvious cause (patient denies medication change, grapefruit/cranberry/pomegranate/lazaro ingestion, OTC medication use, change in herbal/nutritional supplement, accidental overdosage, change in warfarin tablet shape or color, change in vit K consumption, recent illness (NVD, fever), any changes to general health, changes in tobacco use, or EtOH consumption) Plan: Current Warfarin Dosing As of 03/17/2024 Full warfarin instructions: 03/17: Hold; Otherwise 3 mg every Thu; 2.5 mg all other days Called and spoke to patient/caregiver Advised patient to hold 1 dose then decrease current regimen Next lab INR check scheduled on 03/31/2024 Patient's caregiver verbalizes understanding of the plan. Patient denies need for refills. Patient advised to call the PAC with any medication changes, bleeding/bruising concerns, recent changes in vitamin k consumption, if any procedures are coming up, if they have been ill or in the hospital, and if they have missed any doses of warfarin. Josy Gandhi Formerly [facility] Clinical Pharmacist, Pharmacy Anticoagulation Clinic Pharmacy Anticoagulation Clinic Pager: [phone]. documented in this encounterC[facility] Telephone encounter Note * Telephone Encounter - Elise Paredes [facility] - 03/03/2024 9:32 AM EST [facility] Ambulatory Pharmacy Anticoagulation Clinic Anticoagulation Episode Summary Anticoagulation Care Providers Provider Role Specialty Phone number Stas Mora MD Referring Family Medicine [phone] Roby Flores is a 88 year old year old male patient being evaluated today for a Lab INR. Patient is currently on the following 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(s) Warfarin. Labs PT INR (no units) Date Value 05/19/2022 1.7 05/15/2021 2.3 04/17/2021 1.9 INR (no units) Date Value 03/03/2024 3.6 02/10/2024 3.3 01/20/2024 3.4 Hemoglobin (g/dL) Date Value 06/04/2023 10.0 Hematocrit (%) Date Value 06/04/2023 34.9 Platelet Count (k/uL) Date Value 06/04/2023 297 Creatinine (mg/dL) Date Value 06/03/2023 0.81 08/15/2022 0.89 02/21/2022 0.85 03/13/2021 0.80 08/28/2020 0.83 Bilirubin, Total (mg/dL) Date Value 06/03/2023 0.6 03/13/2021 0.5 ALT (U/L) Date Value 06/03/2023 13 03/13/2021 24 AST (U/L) Date Value 06/03/2023 21 03/13/2021 24 CrCl cannot be calculated (Patient's most recent lab result is older than the maximum 180 days allowed.). 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 Paroxysmal atrial fibrillation (hcc) Anticoagulation Episode Summary Current INR goal: 2.0-3.0 Assessment: INR result of 3.6 is SUPRAtherapeutic due to: No obvious cause (patient denies medication change, grapefruit/cranberry/pomegranate/lazaro ingestion, OTC medication use, change in herbal/nutritional supplement, accidental overdosage, change in warfarin tablet shape or color, change in vit K consumption, recent illness (NVD, fever), any changes to general health, changes in tobacco use, or EtOH consumption) Plan: Current Warfarin Dosing As of 03/03/2024 Full warfarin instructions: 3 mg every Mon, Fri; 2.5 mg all other days Called and spoke to patient/caregiver Advised patient to decrease total weekly regimen Next lab INR check scheduled on 03/22/2024 Spouse verbalizes understanding of the plan. Patient denies need for refills. Patient advised to call the PAC with any medication changes, bleeding/bruising concerns, recent changes in vitamin k consumption, if any procedures are coming up, if they have been ill or in the hospital, and if they have missed any doses of warfarin. Elise Paredes RPh Clinical Pharmacist, Pharmacy Anticoagulation Clinic Pharmacy Anticoagulation Clinic Pager: [phone]. [facility]12-12-[facility] Miscellaneous Notes* Telephone Encounter - Elise Paredes RPh - 03/03/2024 9:32 AM EST [facility] Ambulatory Pharmacy Anticoagulation Clinic Anticoagulation Episode Summary Anticoagulation Care Providers Provider Role Specialty Phone number Stas Mora MD Referring Family Medicine [phone] Roby Flores is a 88 year old year old male patient being evaluated today for a Lab INR. Patient is currently on the following 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(s) Warfarin. Labs PT INR (no units) Date Value 05/19/2022 1.7 05/15/2021 2.3 04/17/2021 1.9 INR (no units) Date Value 03/03/2024 3.6 02/10/2024 3.3 01/20/2024 3.4 Hemoglobin (g/dL) Date Value 06/04/2023 10.0 Hematocrit (%) Date Value 06/04/2023 34.9 Platelet Count (k/uL) Date Value 06/04/2023 297 Creatinine (mg/dL) Date Value 06/03/2023 0.81 08/15/2022 0.89 02/21/2022 0.85 03/13/2021 0.80 08/28/2020 0.83 Bilirubin, Total (mg/dL) Date Value 06/03/2023 0.6 03/13/2021 0.5 ALT (U/L) Date Value 06/03/2023 13 03/13/2021 24 AST (U/L) Date Value 06/03/2023 21 03/13/2021 24 CrCl cannot be calculated (Patient's most recent lab result is older than the maximum 180 days allowed.). 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 Paroxysmal atrial fibrillation (hcc) Anticoagulation Episode Summary Current INR goal: 2.0-3.0 Assessment: INR result of 3.6 is SUPRAtherapeutic due to: No obvious cause (patient denies medication change, grapefruit/cranberry/pomegranate/lazaro ingestion, OTC medication use, change in herbal/nutritional supplement, accidental overdosage, change in warfarin tablet shape or color, change in vit K consumption, recent illness (NVD, fever), any changes to general health, changes in tobacco use, or EtOH consumption) Plan: Current Warfarin Dosing As of 03/03/2024 Full warfarin instructions: 3 mg every Mon, Fri; 2.5 mg all other days Called and spoke to patient/caregiver Advised patient to decrease total weekly regimen Next lab INR check scheduled on 03/22/2024 Spouse verbalizes understanding of the plan. Patient denies need for refills. Patient advised to call the PAC with any medication changes, bleeding/bruising concerns, recent changes in vitamin k consumption, if any procedures are coming up, if they have been ill or in the hospital, and if they have missed any doses of warfarin. Elise Paredes RPh Clinical Pharmacist, Pharmacy Anticoagulation Clinic Pharmacy Anticoagulation Clinic Pager: [phone]. documented in this encounterC[facility] Telephone encounter Note * Telephone Encounter - Coretta Jalloh RPh - 02/10/2024 9:08 AM EST [facility] Ambulatory Pharmacy Anticoagulation Clinic Anticoagulation Episode Summary Anticoagulation Care Providers Provider Role Specialty Phone number Stas Mora MD Referring Family Medicine [phone] Roby Flores is a 88 year old year old male patient being evaluated today for a Telemanagement visit. Patient is currently on the following 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(s) Warfarin. Labs PT INR (no units) Date Value 05/19/2022 1.7 05/15/2021 2.3 04/17/2021 1.9 INR (no units) Date Value 02/10/2024 3.3 01/20/2024 3.4 12/23/2023 2.2 Hemoglobin (g/dL) Date Value 06/04/2023 10.0 Hematocrit (%) Date Value 06/04/2023 34.9 Platelet Count (k/uL) Date Value 06/04/2023 297 Creatinine (mg/dL) Date Value 06/03/2023 0.81 08/15/2022 0.89 02/21/2022 0.85 03/13/2021 0.80 08/28/2020 0.83 Bilirubin, Total (mg/dL) Date Value 06/03/2023 0.6 03/13/2021 0.5 ALT (U/L) Date Value 06/03/2023 13 03/13/2021 24 AST (U/L) Date Value 06/03/2023 21 03/13/2021 24 CrCl cannot be calculated (Patient's most recent lab result is older than the maximum 180 days allowed.). 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 Paroxysmal atrial fibrillation (hcc) Anticoagulation Episode Summary Current INR goal: 2.0-3.0 Assessment: INR result of 3.3 is SUPRAtherapeutic due to: unknown cause - did not speak to patient Plan: Current Warfarin Dosing As of 02/10/2024 Full warfarin instructions: 2.5 mg every Thu, Thu; 3 mg all other days Left voice message For Maria Guadalupe. Advised patient to decrease total weekly regimen - small change. Next lab INR check scheduled on 02/24/2024 Patient advised to call the PAC with any medication changes, bleeding/bruising concerns, recent changes in vitamin k consumption, if any procedures are coming up, if they have been ill or in the hospital, and if they have missed any doses of warfarin. Coretta Jalloh RPh Clinical Pharmacist, Pharmacy Anticoagulation Clinic Pharmacy Anticoagulation Clinic Pager: [phone]. [facility]11-20-2024 Miscellaneous Notes* Telephone Encounter - Coretta Jalloh RPh - 02/10/2024 9:08 AM EST [facility] Ambulatory Pharmacy Anticoagulation Clinic Anticoagulation Episode Summary Anticoagulation Care Providers Provider Role Specialty Phone number Stas Mora MD Referring Family Medicine [phone] Roby Flores is a 88 year old year old male patient being evaluated today for a Telemanagement visit. Patient is currently on the following 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(s) Warfarin. Labs PT INR (no units) Date Value 05/19/2022 1.7 05/15/2021 2.3 04/17/2021 1.9 INR (no units) Date Value 02/10/2024 3.3 01/20/2024 3.4 12/23/2023 2.2 Hemoglobin (g/dL) Date Value 06/04/2023 10.0 Hematocrit (%) Date Value 06/04/2023 34.9 Platelet Count (k/uL) Date Value 06/04/2023 297 Creatinine (mg/dL) Date Value 06/03/2023 0.81 08/15/2022 0.89 02/21/2022 0.85 03/13/2021 0.80 08/28/2020 0.83 Bilirubin, Total (mg/dL) Date Value 06/03/2023 0.6 03/13/2021 0.5 ALT (U/L) Date Value 06/03/2023 13 03/13/2021 24 AST (U/L) Date Value 06/03/2023 21 03/13/2021 24 CrCl cannot be calculated (Patient's most recent lab result is older than the maximum 180 days allowed.). 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 Paroxysmal atrial fibrillation (hcc) Anticoagulation Episode Summary Current INR goal: 2.0-3.0 Assessment: INR result of 3.3 is SUPRAtherapeutic due to: unknown cause - did not speak to patient Plan: Current Warfarin Dosing As of 02/10/2024 Full warfarin instructions: 2.5 mg every Thu, Thu; 3 mg all other days Left voice message For Maria Guadalupe. Advised patient to decrease total weekly regimen - small change. Next lab INR check scheduled on 02/24/2024 Patient advised to call the PAC with any medication changes, bleeding/bruising concerns, recent changes in vitamin k consumption, if any procedures are coming up, if they have been ill or in the hospital, and if they have missed any doses of warfarin. Coretta Jalloh RPh Clinical Pharmacist, Pharmacy Anticoagulation Clinic Pharmacy Anticoagulation Clinic Pager: [phone]. documented in this encounterC[facility] Telephone encounter Note * Telephone Encounter - Coretta Jalloh RPh - 01/20/2024 10:19 AM EDT [facility] Ambulatory Pharmacy Anticoagulation Clinic Anticoagulation Episode Summary Anticoagulation Care Providers Provider Role Specialty Phone number Stas Mora MD Referring Family Medicine [phone] Roby Flores is a 88 year old year old male patient being evaluated today for a Telemanagement visit. Patient is currently on the following 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(s) Warfarin. Labs PT INR (no units) Date Value 05/19/2022 1.7 05/15/2021 2.3 04/17/2021 1.9 INR (no units) Date Value 01/20/2024 3.4 12/23/2023 2.2 12/09/2023 1.9 Hemoglobin (g/dL) Date Value 06/04/2023 10.0 Hematocrit (%) Date Value 06/04/2023 34.9 Platelet Count (k/uL) Date Value 06/04/2023 297 Creatinine (mg/dL) Date Value 06/03/2023 0.81 08/15/2022 0.89 02/21/2022 0.85 03/13/2021 0.80 08/28/2020 0.83 Bilirubin, Total (mg/dL) Date Value 06/03/2023 0.6 03/13/2021 0.5 ALT (U/L) Date Value 06/03/2023 13 03/13/2021 24 AST (U/L) Date Value 06/03/2023 21 03/13/2021 24 CrCl cannot be calculated (Patient's most recent lab result is older than the maximum 180 days allowed.). ALLERGIES No Known Allergies 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: [facility] current us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 Paroxysmal atrial fibrillation (hcc) Anticoagulation Episode Summary Current INR goal: 2.0-3.0 Assessment: INR result of 3.4 is SUPRAtherapeutic due to: Decreased vitamin k intake Maria Guadalupe said she will try to get him to eat more vit K containing foods. Plan: Current Warfarin Dosing As of 01/20/2024 Full warfarin instructions: 01/19: 1.5 mg; Otherwise 2.5 mg every Sun; 3 mg all other days Called and spoke to patient/caregiver Advised patient to decrease dose for 1 day only then resume weekly regimen Next lab INR check scheduled on 02/10/2024 Patient's caregiver, Maria Guadalupe, verbalizes understanding of the plan. Patient denies need for refills. Patient advised to call the PAC with any medication changes, bleeding/bruising concerns, recent changes in vitamin k consumption, if any procedures are coming up, if they have been ill or in the hospital, and if they have missed any doses of warfarin. Coretta Jalloh RPh Clinical Pharmacist, Pharmacy Anticoagulation Clinic Pharmacy Anticoagulation Clinic Pager: [phone]. [facility]10[facility] Miscellaneous Notes* Telephone Encounter - Coretta Jalloh RPh - 01/20/2024 10:19 AM EDT [facility] Ambulatory Pharmacy Anticoagulation Clinic Anticoagulation Episode Summary Anticoagulation Care Providers Provider Role Specialty Phone number Stas Mora MD Referring Family Medicine [phone] Roby Flores is a 88 year old year old male patient being evaluated today for a Telemanagement visit. Patient is currently on the following 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(s) Warfarin. Labs PT INR (no units) Date Value 05/19/2022 1.7 05/15/2021 2.3 04/17/2021 1.9 INR (no units) Date Value 01/20/2024 3.4 12/23/2023 2.2 12/09/2023 1.9 Hemoglobin (g/dL) Date Value 06/04/2023 10.0 Hematocrit (%) Date Value 06/04/2023 34.9 Platelet Count (k/uL) Date Value 06/04/2023 297 Creatinine (mg/dL) Date Value 06/03/2023 0.81 08/15/2022 0.89 02/21/2022 0.85 03/13/2021 0.80 08/28/2020 0.83 Bilirubin, Total (mg/dL) Date Value 06/03/2023 0.6 03/13/2021 0.5 ALT (U/L) Date Value 06/03/2023 13 03/13/2021 24 AST (U/L) Date Value 06/03/2023 21 03/13/2021 24 CrCl cannot be calculated (Patient's most recent lab result is older than the maximum 180 days allowed.). ALLERGIES No Known Allergies 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: [facility] current us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 Paroxysmal atrial fibrillation (hcc) Anticoagulation Episode Summary Current INR goal: 2.0-3.0 Assessment: INR result of 3.4 is SUPRAtherapeutic due to: Decreased vitamin k intake Maria Guadalupe said she will try to get him to eat more vit K containing foods. Plan: Current Warfarin Dosing As of 01/20/2024 Full warfarin instructions: 01/19: 1.5 mg; Otherwise 2.5 mg every Sun; 3 mg all other days Called and spoke to patient/caregiver Advised patient to decrease dose for 1 day only then resume weekly regimen Next lab INR check scheduled on 02/10/2024 Patient's caregiver, Maria Guadalupe, verbalizes understanding of the plan. Patient denies need for refills. Patient advised to call the PAC with any medication changes, bleeding/bruising concerns, recent changes in vitamin k consumption, if any procedures are coming up, if they have been ill or in the hospital, and if they have missed any doses of warfarin. Coretta Jalloh RPh Clinical Pharmacist, Pharmacy Anticoagulation Clinic Pharm[facility] Pager: [phone]. documented in this encounterC[facility] Telephone encounter Note * Telephone Encounter - Jenna Fitzpatrick APRN.CNP - 01/04/2024 10:41 AM EDT The following approved medication requests have been transmitted electronically. Requested Prescriptions Signed Prescriptions Disp Refills warfarin (COUMADIN) 3 mg tablet 30 tablet 11 Sig: Take 1 tablet by mouth daily as directed. Authorizing Provider: JENNA FITZPATRICK APRN.CNP [facility]10-14-2024 Miscellaneous Notes* Telephone Encounter - Jenna Fitzpatrick APRN.CNP - 01/04/2024 10:41 AM EDT The following approved medication requests have been transmitted electronically. Requested Prescriptions Signed Prescriptions Disp Refills warfarin (COUMADIN) 3 mg tablet 30 tablet 11 Sig: Take 1 tablet by mouth daily as directed. Authorizing Provider: JENNA FITZPATRICK APRN.CNP * Telephone Encounter - Oliva Westbrook LPN - 01/04/2024 9:33 AM EDT Patient significant other Maria Guadalupe calling asking for a warfarin 3 mg rx to be sent to [facility]. Heis taking 3 mg daily and has 1 mg tablets and 2.5 mg tablets. He keeps running out of the 1 mg every 10 days and pharmacy asking for another rx. Pending rx needs completed. Please advise documented in this encounterC[facility]10-[facility] Telephone encounter Note * Telephone Encounter - Oliva Westbrook LPN - 01/04/2024 9:33 AM EDT Patient significant other Maria Guadalupe calling asking for a warfarin 3 mg rx to be sent to [facility]. Heis taking 3 mg daily and has 1 mg tablets and 2.5 mg tablets. He keeps running out of the 1 mg every 10 days and pharmacy asking for another rx. Pending rx needs completed. Please advise [facility]10-[facility]24 Telephone encounter Note* Telephone Encounter - Elise Paredes, [facility] - 12/24/2023 2:29 PM EDT [facility] Amb[facility] Clinic Anticoagulation Episode Summary Anticoagulation Care Providers Provider Role Specialty Phone number Stas Mora MD Referring Family Medicine [phone] Roby Flores is a 88 year old year old male patient being evaluated today for a Lab INR. Patient is currently on the following 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(s) Warfarin. Labs PT INR (no units) Date Value 05/19/2022 1.7 05/15/2021 2.3 04/17/2021 1.9 INR (no units) Date Value 12/23/2023 2.2 12/09/2023 1.9 11/26/2023 1.5 Hemoglobin (g/dL) Date Value 06/04/2023 10.0 Hematocrit (%) Date Value 06/04/2023 34.9 Platelet Count (k/uL) Date Value 06/04/2023 297 Creatinine (mg/dL) Date Value 06/03/2023 0.81 08/15/2022 0.89 02/21/2022 0.85 03/13/2021 0.80 08/28/2020 0.83 Bilirubin, Total (mg/dL) Date Value 06/03/2023 0.6 03/13/2021 0.5 ALT (U/L) Date Value 06/03/2023 13 03/13/2021 24 AST (U/L) Date Value 06/03/2023 21 03/13/2021 24 CrCl cannot be calculated (Patient's most recent lab result is older than the maximum 180 days allowed.). ALLERGIES No Known Allergies 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: [facility] current us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 Paroxysmal atrial fibrillation (hcc) Anticoagulation Episode Summary Current INR goal: 2.0-3.0 Assessment: INR result of 2.2 is therapeutic Plan: Current Warfarin Dosing As of 12/24/2023 Full warfarin instructions: 2.5 mg every Sun; 3 mg all other days Left voice message Advised patient to continue current weekly dose as noted above Next lab INR check scheduled on 01/21/2024 Elise Paredes RPh Clinical Pharmacist, Pharmacy Anticoagulation Clinic Pharmacy Anticoagulation Clinic Pager: [phone]. [facility]10-[facility] Miscellaneous Notes* Telephone Encounter - Elise Paredes RPh - 12/24/2023 2:29 PM EDT [facility] Ambulatory Pharmacy Anticoagulation Clinic Anticoagulation Episode Summary Anticoagulation Care Providers Provider Role Specialty Phone number Stas Mora MD Referring Family Medicine [phone] Roby Flores is a 88 year old year old male patient being evaluated today for a Lab INR. Patient is currently on the following 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(s) Warfarin. Labs PT INR (no units) Date Value 05/19/2022 1.7 05/15/2021 2.3 04/17/2021 1.9 INR (no units) Date Value 12/23/2023 2.2 12/09/2023 1.9 11/26/2023 1.5 Hemoglobin (g/dL) Date Value 06/04/2023 10.0 Hematocrit (%) Date Value 06/04/2023 34.9 Platelet Count (k/uL) Date Value 06/04/2023 297 Creatinine (mg/dL) Date Value 06/03/2023 0.81 08/15/2022 0.89 02/21/2022 0.85 03/13/2021 0.80 08/28/2020 0.83 Bilirubin, Total (mg/dL) Date Value 06/03/2023 0.6 03/13/2021 0.5 ALT (U/L) Date Value 06/03/2023 13 03/13/2021 24 AST (U/L) Date Value 06/03/2023 21 03/13/2021 24 CrCl cannot be calculated (Patient's most recent lab result is older than the maximum 180 days allowed.). ALLERGIES No Known Allergies 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: [facility] current us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 Paroxysmal atrial fibrillation (hcc) Anticoagulation Episode Summary Current INR goal: 2.0-3.0 Assessment: INR result of 2.2 is therapeutic Plan: Current Warfarin Dosing As of 12/24/2023 Full warfarin instructions: 2.5 mg every Sun; 3 mg all other days Left voice message Advised patient to continue current weekly dose as noted above Next lab INR check scheduled on 01/21/2024 Elise Paredes RPh Clinical Pharmacist, Pharmacy Anticoagulation Clinic Pharmacy Anticoagulation Clinic Pager: [phone]. documented in this encounterC[facility] Telephone encounter Note * Telephone Encounter - Elise Paredes RPh - 12/10/2023 2:13 PM EDT [facility] Amb[facility] Clinic Anticoagulation Episode Summary Anticoagulation Care Providers Provider Role Specialty Phone number Stas Mora MD Referring Family Medicine [phone] Roby Flores is a 88 year old year old male patient being evaluated today for a Lab INR. Patient is currently on the following 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(s) Warfarin. Labs PT INR (no units) Date Value 05/19/2022 1.7 05/15/2021 2.3 04/17/2021 1.9 INR (no units) Date Value 12/09/2023 1.9 11/26/2023 1.5 11/18/2023 1.8 Hemoglobin (g/dL) Date Value 06/04/2023 10.0 Hematocrit (%) Date Value 06/04/2023 34.9 Platelet Count (k/uL) Date Value 06/04/2023 297 Creatinine (mg/dL) Date Value 06/03/2023 0.81 08/15/2022 0.89 02/21/2022 0.85 03/13/2021 0.80 08/28/2020 0.83 Bilirubin, Total (mg/dL) Date Value 06/03/2023 0.6 03/13/2021 0.5 ALT (U/L) Date Value 06/03/2023 13 03/13/2021 24 AST (U/L) Date Value 06/03/2023 21 03/13/2021 24 CrCl cannot be calculated (Patient's most recent lab result is older than the maximum 180 days allowed.). 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 Paroxysmal atrial fibrillation (hcc) Anticoagulation Episode Summary Current INR goal: 2.0-3.0 Assessment: INR result of 1.9 is SUBtherapeutic due to: unknown cause - did not speak to patient Plan: Current Warfarin Dosing As of 12/10/2023 Full warfarin instructions: 2.5 mg every Sun; 3 mg all other days Left voice message for Gabby at [phone] (home) Advised patient to increase total weekly regimen Next lab INR check scheduled on 12/24/2023 Elise Paredes [facility] Clinical Pharmacist, Pharmacy Anticoagulation Clinic Pharmacy Anticoagulation Clinic Pager: [phone]. [facility] Miscellaneous Notes* Telephone Encounter - Elise Paredes RPh - 12/10/2023 2:13 PM EDT [facility] Ambulatory [facility] Anticoagulation Clinic Anticoagulation Episode Summary Anticoagulation Care Providers Provider Role Specialty Phone number Stas Mora MD Referring Family Medicine [phone] Roby Flores is a 88 year old year old male patient being evaluated today for a Lab INR. Patient is currently on the following 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(s) Warfarin. Labs PT INR (no units) Date Value 05/19/2022 1.7 05/15/2021 2.3 04/17/2021 1.9 INR (no units) Date Value 12/09/2023 1.9 11/26/2023 1.5 11/18/2023 1.8 Hemoglobin (g/dL) Date Value 06/04/2023 10.0 Hematocrit (%) Date Value 06/04/2023 34.9 Platelet Count (k/uL) Date Value 06/04/2023 297 Creatinine (mg/dL) Date Value 06/03/2023 0.81 08/15/2022 0.89 02/21/2022 0.85 03/13/2021 0.80 08/28/2020 0.83 Bilirubin, Total (mg/dL) Date Value 06/03/2023 0.6 03/13/2021 0.5 ALT (U/L) Date Value 06/03/2023 13 03/13/2021 24 AST (U/L) Date Value 06/03/2023 21 03/13/2021 24 CrCl cannot be calculated (Patient's most recent lab result is older than the maximum 180 days allowed.). 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 Paroxysmal atrial fibrillation (hcc) Anticoagulation Episode Summary Current INR goal: 2.0-3.0 Assessment: INR result of 1.9 is SUBtherapeutic due to: unknown cause - did not speak to patient Plan: Current Warfarin Dosing As of 12/10/2023 Full warfarin instructions: 2.5 mg every Sun; 3 mg all other days Left voice message for Gabby at [phone] (home) Advised patient to increase total weekly regimen Next lab INR check scheduled on 12/24/2023 Elise Paredes RPh Clinical Pharmacist, Pharmacy Anticoagulation Clinic Pharmacy Anticoagulation Clinic Pager: [phone]. documented in this encounterC[facility] Telephone encounter Note * Telephone Encounter - Elise Paredes RPh - 11/26/2023 4:32 PM EDT [facility] Ambulatory [facility] Anticoagulation Clinic Anticoagulation Episode Summary Anticoagulation Care Providers Provider Role Specialty Phone number Stas Mora MD Referring Family Medicine [phone] Roby Flores is a 88 year old year old male patient being evaluated today for a Lab INR. Patient is currently on the following 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(s) Warfarin. Labs PT INR (no units) Date Value 05/19/2022 1.7 05/15/2021 2.3 04/17/2021 1.9 INR (no units) Date Value 11/26/2023 1.5 11/18/2023 1.8 10/14/2023 2.3 Hemoglobin (g/dL) Date Value 06/04/2023 10.0 Hematocrit (%) Date Value 06/04/2023 34.9 Platelet Count (k/uL) Date Value 06/04/2023 297 Creatinine (mg/dL) Date Value 06/03/2023 0.81 08/15/2022 0.89 02/21/2022 0.85 03/13/2021 0.80 08/28/2020 0.83 Bilirubin, Total (mg/dL) Date Value 06/03/2023 0.6 03/13/2021 0.5 ALT (U/L) Date Value 06/03/2023 13 03/13/2021 24 AST (U/L) Date Value 06/03/2023 21 03/13/2021 24 CrCl cannot be calculated (Unknown ideal weight.). 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 Paroxysmal atrial fibrillation (hcc) Anticoagulation Episode Summary Current INR goal: 2.0-3.0 Assessment: INR result of 1.5 is SUBtherapeutic due to: No obvious cause (patient denies liver, green tea, new herbal/nutritional supplements - such as Boost, Ensure, an increase in vit K foods and/or V8 type juices, any changes in warfarin tablet, or missed doses) Plan: Current Warfarin Dosing As of 11/26/2023 Full warfarin instructions: 11/25: 5 mg; Otherwise 2.5 mg every Thu, Thu, Thu; 3 mg all other days Called and spoke to patient/caregiver Advised patient to increase dose for 1 day and increase total weekly regimen Next lab INR check scheduled on 12/10/2023 Patient's caregiver verbalizes understanding of the plan. Patient denies need for refills. Elise Paredes RPh Clinical Pharmacist, Pharmacy Anticoagulation Clinic Pharmacy Anticoagulation Clinic Pager: [phone]. [facility]09-[facility] Miscellaneous Notes* Telephone Encounter - Elise Paredes RPh - 11/26/2023 4:32 PM EDT [facility] Ambulatory Pharmacy Anticoagulation Clinic Anticoagulation Episode Summary Anticoagulation Care Providers Provider Role Specialty Phone number Stas Mora MD Referring Family Medicine [phone] Roby Flores is a 88 year old year old male patient being evaluated today for a Lab INR. Patient is currently on the following 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(s) Warfarin. Labs PT INR (no units) Date Value 05/19/2022 1.7 05/15/2021 2.3 04/17/2021 1.9 INR (no units) Date Value 11/26/2023 1.5 11/18/2023 1.8 10/14/2023 2.3 Hemoglobin (g/dL) Date Value 06/04/2023 10.0 Hematocrit (%) Date Value 06/04/2023 34.9 Platelet Count (k/uL) Date Value 06/04/2023 297 Creatinine (mg/dL) Date Value 06/03/2023 0.81 08/15/2022 0.89 02/21/2022 0.85 03/13/2021 0.80 08/28/2020 0.83 Bilirubin, Total (mg/dL) Date Value 06/03/2023 0.6 03/13/2021 0.5 ALT (U/L) Date Value 06/03/2023 13 03/13/2021 24 AST (U/L) Date Value 06/03/2023 21 03/13/2021 24 CrCl cannot be calculated (Unknown ideal weight.). 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 Paroxysmal atrial fibrillation (hcc) Anticoagulation Episode Summary Current INR goal: 2.0-3.0 Assessment: INR result of 1.5 is SUBtherapeutic due to: No obvious cause (patient denies liver, green tea, new herbal/nutritional supplements - such as Boost, Ensure, an increase in vit K foods and/or V8 type juices, any changes in warfarin tablet, or missed doses) Plan: Current Warfarin Dosing As of 11/26/2023 Full warfarin instructions: 11/25: 5 mg; Otherwise 2.5 mg every Thu, Thu, Thu; 3 mg all other days Called and spoke to patient/caregiver Advised patient to increase dose for 1 day and increase total weekly regimen Next lab INR check scheduled on 12/10/2023 Patient's caregiver verbalizes understanding of the plan. Patient denies need for refills. Elise Paredes [facility] Clinical Pharmacist, Pharmacy Anticoagulation Clinic Pharmacy Anticoagulation Clinic Pager: [phone]. * Telephone Encounter - Satish HuangFried Cake MakerParmjit Berry - 11/26/2023 4:26 PM EDT Patient's spouse called regarding message. Patient typically takes warfarin in the morning but did not take any today. Patient's spouse doesn't understand why its low all the sudden. Denies changes in medication/ diet or missed doses. Call transferred to [facility] Parmjit Covarrubias, Process Camera Operator (pain management specialist) Pharmacy Anticoagulation Clinic * Telephone Encounter - Elise Paredes [facility] - 11/26/2023 4:21 PM EDT [facility] Ambulatory [facility] Anticoagulation Clinic Anticoagulation Episode Summary Anticoagulation Care Providers Provider Role Specialty Phone number Stas Mora MD Referring Family Medicine [phone] Roby Flores is a 88 year old year old male patient being evaluated today for a Lab INR. Patient is currently on the following 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(s) Warfarin. Labs PT INR (no units) Date Value 05/19/2022 1.7 05/15/2021 2.3 04/17/2021 1.9 INR (no units) Date Value 11/26/2023 1.5 11/18/2023 1.8 10/14/2023 2.3 Hemoglobin (g/dL) Date Value 06/04/2023 10.0 Hematocrit (%) Date Value 06/04/2023 34.9 Platelet Count (k/uL) Date Value 06/04/2023 297 Creatinine (mg/dL) Date Value 06/03/2023 0.81 08/15/2022 0.89 02/21/2022 0.85 03/13/2021 0.80 08/28/2020 0.83 Bilirubin, Total (mg/dL) Date Value 06/03/2023 0.6 03/13/2021 0.5 ALT (U/L) Date Value 06/03/2023 13 03/13/2021 24 AST (U/L) Date Value 06/03/2023 21 03/13/2021 24 CrCl cannot be calculated (Unknown ideal weight.). ALLERGIES No Known Allergies 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: [facility] current us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 Paroxysmal atrial fibrillation (hcc) Anticoagulation Episode Summary Current INR goal: 2.0-3.0 Assessment: INR result of 1.5 is SUBtherapeutic due to: unknown cause - did not speak to patient Plan: Current Warfarin Dosing As of 11/26/2023 Full warfarin instructions: 11/25: 5 mg; Otherwise 3 mg every Mon, Wed, Sat; 2.5 mg all other days Left voice message Advised patient to 5 mg x1(11/25) and call PAC to discuss further Elise Paredes [facility] Clinical Pharmacist, Pharmacy Anticoagulation Clinic Pharmacy Anticoagulation Clinic Pager: [phone]. documented in this encounterC[facility] Telephone encounter Note * Telephone Encounter - Satish (Fried Cake Maker)Parmjit - 11/26/2023 4:26 PM EDT Patient's spouse called regarding message. Patient typically takes warfarin in the morning but did not take any today. Patient's spouse doesn't understand why its low all the sudden. Denies changes in medication/ diet or missed doses. Call transferred to [facility] Parmjit Covarrubias, Process Camera Operator (pain management specialist) Pharmacy Anticoagulation Clinic [facility] Telephone encounter Note* Telephone Encounter - Elise Paredes [facility] - 11/26/2023 4:21 PM EDT [facility] Ambulatory Pharmacy Anticoagulation Clinic Anticoagulation Episode Summary Anticoagulation Care Providers Provider Role Specialty Phone number Stas Mora MD Referring Family Medicine [phone] Roby Flores is a 88 year old year old male patient being evaluated today for a Lab INR. Patient is currently on the following 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(s) Warfarin. Labs PT INR (no units) Date Value 05/19/2022 1.7 05/15/2021 2.3 04/17/2021 1.9 INR (no units) Date Value 11/26/2023 1.5 11/18/2023 1.8 10/14/2023 2.3 Hemoglobin (g/dL) Date Value 06/04/2023 10.0 Hematocrit (%) Date Value 06/04/2023 34.9 Platelet Count (k/uL) Date Value 06/04/2023 297 Creatinine (mg/dL) Date Value 06/03/2023 0.81 08/15/2022 0.89 02/21/2022 0.85 03/13/2021 0.80 08/28/2020 0.83 Bilirubin, Total (mg/dL) Date Value 06/03/2023 0.6 03/13/2021 0.5 ALT (U/L) Date Value 06/03/2023 13 03/13/2021 24 AST (U/L) Date Value 06/03/2023 21 03/13/2021 24 CrCl cannot be calculated (Unknown ideal weight.). 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 [facility]09-[facility] History of Present illness Narrative* Stas Mora MD - 11/26/2023 10:40 AM EDT Chief Complaint Patient presents with: F/U 6 Month HPI Roby Flores is a 88 year old male who presents here today for 6 month follow up. Pt here today for routine follow up. Here today with his . Denies doing too much over this summer due to trouble with walking and being 88 years old. Pt stated he was 81. GI/Uro - Denies any stomach or bowel issues. No longer having issues controlling his bowels, previously was. Does have urinary urgency with accidents frequently per . Previously was taking Flomax0.4 mg daily, but has not taken this over the past few months. Unsure why pt quit medication. Unsure if any noticeable difference, due to still having accidents. INR and coumadin dosage managed by Pharmacists. Is supposed to have this checked today. HTN: Denies any chest pains, dizziness, or sob. Checking BP at home, overall doing okay. Taking Lisinopril 10 mg daily. Pt had elevated reading today in office, but has not taken his medication yet today. Edema - PRN use of Lasix 20 mg for lower leg edema. Stable at this time. Lipid/CVA: Does try to watch his diet, appetite overall okay but doesn't eat as much as he used too. No real exercise, but does do some things around the home. Has lost almost 10 lbs since last visit, but pt feels this was misread at that visit. Previously was taking Lipitor 40 mg daily, but has not taken this for the past few months, pt unsure why he stopped. Takes ASA 81 mg daily. Still some speech difficulties and right side weakness from probable CVA . Uses cane to get around.No falls in the past year. States he has trouble with walking, feels this is related to his knee's.Denies any pain or falls, but feels it slows him down. Memory - Taking Aricept 5 mg once daily, this was started at last visit. Denies any issues with medication or side effects. reports memory not doing well. Patient just chuckles when asked. Pt reports struggling with names and dates. No longer driving. He stated he was 81 years old. stateshe does handle his medication, but puts out his medication for him to take. HM - Declines RSV vaccine. Will receive Flu vaccine through Pharmacy with . Will check with local Pharmacy for updated Covid vaccine. Past medical history, appointments, medications, allergies reviewed. Previous Medical History PAST MEDICAL HISTORY No date: Coronary atherosclerosis of unspecified type of vessel, pauma or graft Comment: Coronary artery disease No date: Other and unspecified hyperlipidemia No date: Unspecified essential hypertension Comment: Essential hypertension Previous Surgical History PAST SURGICAL HISTORY No date: APPENDECTOMY 2005 last time: PERC TRANSL COR ANGIO Comment: Percutaneous Transluminal Coronary Angio Status 3 procedures Family History FAMILY HISTORY Problem Relation Age of Onset Arthritis Mother Alcohol/Drug Father Stroke Father Cancer Brother 50 Stomach cancer Patient Allergies ALLERGIES No Known Allergies Current Medications Current Outpatient Medications on File Prior to Visit Medication Sig warfarin (COUMADIN) 1 mg tablet Take 1 tablet by mouth once daily. furosemide (LASIX) 20 mg tablet Take 1 tablet by mouth once daily as needed. donepezil (ARICEPT) 5 mg tablet Take 1 tablet by mouth daily at bedtime. warfarin (COUMADIN) 1 mg tablet Take 1 tablet by mouth daily as directed. tamsulosin (FLOMAX) 0.4 mg Take 1 capsule by mouth daily at bedtime. warfarin (COUMADIN) 2.5 mg tablet Take 2.5 mg everyday except 3.75 mg on Fridays atorvastatin (LIPITOR) 40 mg tablet Take 1 tablet by mouth daily at bedtime. aspirin 81 mg chewable tablet Take 1 tablet by mouth once daily. lisinopril (ZESTRIL) 10 mg tablet Take 1 tablet by mouth once daily. No current facility-administered medications on file prior to visit. Social History Social History Tobacco Use Smoking status: Former Smokeless tobacco: Never Tobacco comments: 30 yaers ago Substance Use Topics Alcohol use: No Drug use: No EXAM: BP 144/80 Pulse 60 Resp 18 Wt 71.4 kg (157 lb 6.5 oz) BMI 21.95 kg/m General Appearance: Well appearing, alert, in no acute distress, well-hydrated, well nourished. Using a cane to ambulate. Lungs: Lungs clear to auscultation. No wheezing, rhonchi, rales.. Heart: RRR without murmur, gallop, or rubs. No ectopy. Health Maintenance List RSV Vaccine(1 - 1-dose 60+ series) Never done Covid-19 Vaccine() due on 11/22/2023 Influenza Vaccine(1) due on 11/22/2023 LDL Cholesterol due on 06/02/2024 Depression Screening due on 2024 Anxiety Screening due on 2024 Diabetes Screening due on 06/02/2026 DTaP,Tdap,Td Vaccine(2 - Td or Tdap) due on 02/27/2031 Advance Directive Discussion Completed Shingrix Vaccine Completed Pneumococcal Vaccine: 65+ Completed Data reviewed None ASSESSMENT/PLAN: 1. Essential hypertension, benign - ICD9: 401.1, ICD10: I10 (primary diagnosis) - elevated today, take medication - Recommend home blood pressure monitoring, to bring results to next visit - Encouraged sodium restriction, DASH or Mediterranean diet - Recommend regular aerobic exercise - LISINOPRIL 10 MG TABLET - COMPREHENSIVE METABOLIC PANEL - LIPID PANEL BASIC 2. Hyperlipidemia, unspecified hyperlipidemia type - ICD9: 272.4, ICD10: E78.5 - Off Lipitor - Counseled on healthy diet and regular exercise - COMPREHENSIVE METABOLIC PANEL - LIPID PANEL BASIC 3. Edema of both lower legs - ICD9: 782.3, ICD10: R60.0 - Stable - Use Lasix prn 4. Paroxysmal atrial fibrillation (HCC) - ICD9: 427.31, ICD10: I48.0 - Check INR today - Follow up with Pharmacist. 5. History of stroke with residual effects - ICD9: 438.9, ICD10: I69.30 - Stable 6. 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 - DONEPEZIL 5 MG TABLET 7. Urinary frequency - ICD9: 788.41, ICD10: R35.0 - Chronic - continue to stay off Flomax. 8. Abnormal CBC - ICD9: 790.6, ICD10: R79.89 - Recheck labs - COMPLETE BLOOD COUNT AND DIFFERENTIAL 6 mo f/u with fasting labs prior to visit. I agree with the Chief Complaint, ROS, and Past Histories independently gathered by the clinical patient support tech and the remaining scribed note accurately describes my personal service to the patient. Medical Decision Making: Problems: Moderate: 2+ stable chronic illnesses Data: Unique test(s) ordered: 3+ Risk: Moderate: Drug management Medical Decision Making Level: 4 - Moderate Stas Mora MD The documentation for this note was completed by Rosie Cruz MA acting as scribe for Stas Mora MD. November 26, 2023 10:55 AM. Rosie Cruz MA documented in this encounterC[facility] NoteHNO ID: [id number] Author: STAS MORA MD Service: ? Author Type: Physician Type: Progress Notes Filed: 11/26/2023 11:02 Note Text: Chief Complaint Patient presents with: F/U 6 Month HPI Roby Flores is a 88 year old male who presents here today for 6 month follow up. Pt here today for routine follow up. Here today with his . Denies doing too much over this summer due to trouble with walking and being 88 years old. Pt stated he was 81. GI/Uro - Denies any stomach or bowel issues. No longer having issues controlling his bowels, previously was. Does have urinary urgency with accidents frequently per . Previously was taking Flomax 0.4 mg daily, but has not taken this over the past few months. Unsure why pt quit medication. Unsure if any noticeable difference, due to still having accidents. INR and coumadin dosage managed by Pharmacists. Is supposed to have this checked today. HTN: Denies any chest pains, dizziness, or sob. Checking BP at home, overall doing okay. Taking Lisinopril 10 mg daily. Pt had elevated reading today in office, but has not taken his medication yet today. Edema - PRN use of Lasix 20 mg for lower leg edema. Stable at this time. Lipid/CVA: Does try to watch his diet, appetite overall okay but doesn't eat as much as he used too. No real exercise, but does do some things around the home. Has lost almost 10 lbs since last visit, but pt feels this was misread at that visit. Previously was taking Lipitor 40 mg daily, but has not taken this for the past few months, pt unsure why he stopped. Takes ASA 81 mg daily. Still some speech difficulties and right side weakness from probable CVA . Uses cane to get around. No falls in the past year. States he has trouble with walking, feels this is related to his knee's. Denies any pain or falls, but feels it slows him down. Memory - Taking Aricept 5 mg once daily, this was started at last visit. Denies any issues with medication or side effects. reports memory not doing well. Patient just chuckles when asked. Pt reports struggling with names and dates. No longer driving. He stated he was 81 years old. states he does handle his medication, but puts out his medication for him to take. HM - Declines RSV vaccine. Will receive Flu vaccine through Pharmacy with . Will check with local Pharmacy for updated Covid vaccine. Past medical history, appointments, medications, allergies reviewed. Previous Medical History PAST MEDICAL HISTORY No date: Coronary atherosclerosis of unspecified type of vessel, pauma or graft Comment: Coronary artery disease No date: Other and unspecified hyperlipidemia No date: Unspecified essential hypertension Comment: Essential hypertension Previous Surgical History PAST SURGICAL HISTORY No date: APPENDECTOMY 2005 last time: PERC TRANSL COR ANGIO Comment: Percutaneous Transluminal Coronary Angio Status 3 procedures Family History FAMILY HISTORY Problem Relation Age of Onset Arthritis Mother Alcohol/Drug Father Stroke Father Cancer Brother 50 Stomach cancer Patient Allergies ALLERGIES No Known Allergies Current Medications Current Outpatient Medications on File Prior to Visit Medication Sig warfarin (COUMADIN) 1 mg tablet Take 1 tablet by mouth once daily. furosemide (LASIX) 20 mg tablet Take 1 tablet by mouth once daily as needed. donepezil (ARICEPT) 5 mg tablet Take 1 tablet by mouth daily at bedtime. warfarin (COUMADIN) 1 mg tablet Take 1 tablet by mouth daily as directed. tamsulosin (FLOMAX) 0.4 mg Take 1 capsule by mouth daily at bedtime. warfarin (COUMADIN) 2.5 mg tablet Take 2.5 mg everyday except 3.75 mg on Fridays atorvastatin (LIPITOR) 40 mg tablet Take 1 tablet by mouth daily at bedtime. aspirin 81 mg chewable tablet Take 1 tablet by mouth once daily. lisinopril (ZESTRIL) 10 mg tablet Take 1 tablet by mouth once daily. No current facility-administered medications on file prior to visit. Social History Social History Tobacco Use Smoking status: Former Smokeless tobacco: Never Tobacco comments: 30 yaers ago Substance Use Topics Alcohol use: No Drug use: No EXAM: BP 144/80 Pulse 60 Resp 18 Wt 71.4 kg (157 lb 6.5 oz) BMI 21.95 kg/m? General Appearance: Well appearing, alert, in no acute distress, well-hydrated, well nourished. Using a cane to ambulate. Lungs: Lungs clear to auscultation. No wheezing, rhonchi, rales.. Heart: RRR without murmur, gallop, or rubs. No ectopy. Health Maintenance List RSV Vaccine(1 - 1-dose 60+ series) Never done Covid-19 Vaccine( season) due on 11/22/2023 Influenza Vaccine(1) due on 11/22/2023 LDL Cholesterol due on 06/02/2024 Depression Screening due on 2024 Anxiety Screening due on 2024 Diabetes Screening due on 06/02/2026 DTaP,Tdap,Td Vaccine(2 - Td or Tdap) due on 02/27/2031 Advance Directive Discussion Compl (more content not included)...[facility]08-28-2024 Telephone encounter Note* Telephone Encounter - Coretta Jalloh RP - 11/18/2023 4:30 PM EDT [facility] Anticoagulation Episode Summary Anticoagulation Care Providers Provider Role Specialty Phone number Stas Mora MD Referring Family Medicine [phone] Roby Flores is a 88 year old year old male patient being evaluated today for a Lab INR. Patient is currently on the following anticoagulant(s) Warfarin. Labs PT INR (no units) Date Value 05/19/2022 1.7 05/15/2021 2.3 04/17/2021 1.9 INR (no units) Date Value 11/18/2023 1.8 10/14/2023 2.3 09/16/2023 2.3 Hemoglobin (g/dL) Date Value 06/04/2023 10.0 Hematocrit (%) Date Value 06/04/2023 34.9 Platelet Count (k/uL) Date Value 06/04/2023 297 Creatinine (mg/dL) Date Value 06/03/2023 0.81 08/15/2022 0.89 02/21/2022 0.85 03/13/2021 0.80 08/28/2020 0.83 Bilirubin, Total (mg/dL) Date Value 06/03/2023 0.6 03/13/2021 0.5 ALT (U/L) Date Value 06/03/2023 13 03/13/2021 24 AST (U/L) Date Value 06/03/2023 21 03/13/2021 24 CrCl cannot be calculated (Unknown ideal weight.). 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 Paroxysmal atrial fibrillation (hcc) Anticoagulation Episode Summary Current INR goal: 2.0-3.0 Assessment: INR result of 1.8 is SUBtherapeutic due to: Increased vitamin k intake recently. Plan: Current Warfarin Dosing As of 11/18/2023 Full warfarin instructions: 3 mg every Mon, Wed, Sat; 2.5 mg all other days Called and spoke to patient/caregiver Advised patient to continue current weekly dose as noted above Next lab INR check scheduled on 12/02/2023 Patient's caregiver verbalizes understanding of the plan. Patient denies need for refills. Coretta Jalloh RPh Clinical Pharmacist, Pharmacy Anticoagulation Clinic Pharmacy [facility] Pager: [phone]. [facility]08-28-2024 Miscellaneous Notes* Telephone Encounter - Coretta Jalloh RPh - 11/18/2023 4:30 PM EDT [facility] Clinic Anticoagulation Episode Summary Anticoagulation Care Providers Provider Role Specialty Phone number Stas Mora MD Referring Family Medicine [phone] Roby Flores is a 88 year old year old male patient being evaluated today for a Lab INR. Patient is currently on the following anticoagulant(s) Warfarin. Labs PT INR (no units) Date Value 05/19/2022 1.7 05/15/2021 2.3 04/17/2021 1.9 INR (no units) Date Value 11/18/2023 1.8 10/14/2023 2.3 09/16/2023 2.3 Hemoglobin (g/dL) Date Value 06/04/2023 10.0 Hematocrit (%) Date Value 06/04/2023 34.9 Platelet Count (k/uL) Date Value 06/04/2023 297 Creatinine (mg/dL) Date Value 06/03/2023 0.81 08/15/2022 0.89 02/21/2022 0.85 03/13/2021 0.80 08/28/2020 0.83 Bilirubin, Total (mg/dL) Date Value 06/03/2023 0.6 03/13/2021 0.5 ALT (U/L) Date Value 06/03/2023 13 03/13/2021 24 AST (U/L) Date Value 06/03/2023 21 03/13/2021 24 CrCl cannot be calculated (Unknown ideal weight.). 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 Paroxysmal atrial fibrillation (hcc) Anticoagulation Episode Summary Current INR goal: 2.0-3.0 Assessment: INR result of 1.8 is SUBtherapeutic due to: Increased vitamin k intake recently. Plan: Current Warfarin Dosing As of 11/18/2023 Full warfarin instructions: 3 mg every Mon, Wed, Sat; 2.5 mg all other days Called and spoke to patient/caregiver Advised patient to continue current weekly dose as noted above Next lab INR check scheduled on 12/02/2023 Patient's caregiver verbalizes understanding of the plan. Patient denies need for refills. Coretta Jalloh RPh Clinical Pharmacist, Pharmacy Anticoagulation Clinic Pharmacy Anticoagulation Clinic Pager: [phone]. documented in this encounterC[facility]08-26-2024 Telephone encounter Note * Telephone Encounter - Elvis Kearney APRN.CNP - 11/16/2023 9:39 AM EDT The following approved medication requests have been transmitted electronically. Requested Prescriptions Pending Prescriptions Disp Refills warfarin (COUMADIN) 1 mg tablet 30 tablet 5 Sig: Take 1 tablet by mouth once daily. Elvis Kearney APRN.CNP [facility]08-26-2024 Miscellaneous Notes* Telephone Encounter - Elvis Kearney APRN.CNP - 11/16/2023 9:39 AM EDT The following approved medication requests have been transmitted electronically. Requested Prescriptions Pending Prescriptions Disp Refills warfarin (COUMADIN) 1 mg tablet 30 tablet 5 Sig: Take 1 tablet by mouth once daily. Elvis Kearney APRN.CNP * Telephone Encounter - Melany Shahid MA - 11/16/2023 9:06 AM EDT Prescription Refill Information The patient has been identified by name and date of : Yes Caregiver verified no other encounters exist for this prescription request: Yes Caregiver confirmed with patient/requestor that no other refills are due, in the near future, with this provider at this time: Yes The last office visit in the department: 07/2023 Does the patient have a future office visit with this provider/department: Yes 11/2023 Requested Prescriptions Pending Prescriptions Disp Refills warfarin (COUMADIN) 1 mg tablet 30 tablet 5 Sig: Take 1 tablet by mouth once daily. Melany Shahid MA November 16, 2023 9:06 AM * Telephone Encounter - Keke Ross - 11/16/2023 9:00 AM EDT Prescription Refill Information The patient has been identified by name and date of : Yes Caregiver verified no other encounters exist for this prescription request: Yes Caregiver confirmed with patient/requestor that no other refills are due, in the near future, with this provider at this time: Yes The last office visit in the department: 09/15/23 Does the patient have a future office visit with this provider/department: Yes Requested Prescriptions Pending Prescriptions Disp Refills warfarin (COUMADIN) 1 mg tablet 30 tablet 5 Sig: Take 1 tablet by mouth once daily. Keke Rinaldi November 16, 2023 9:00 AM documented in this encounterC[facility]08-26-2024 Telephone encounter Note * Telephone Encounter - Melany Shahid MA - 11/16/2023 9:06 AM EDT Prescription Refill Information The patient has been identified by name and date of : Yes Caregiver verified no other encounters exist for this prescription request: Yes Caregiver confirmed with patient/requestor that no other refills are due, in the near future, with this provider at this time: Yes The last office visit in the department: 07/2023 Does the patient have a future office visit with this provider/department: Yes 11/2023 Requested Prescriptions Pending Prescriptions Disp Refills warfarin (COUMADIN) 1 mg tablet 30 tablet 5 Sig: Take 1 tablet by mouth once daily. Melany Shahid MA November 16, 2023 9:06 AM [facility]08-26-2024 Telephone encounter Note* Telephone Encounter - Kkee Ross - 11/16/2023 9:00 AM EDT Prescription Refill Information The patient has been identified by name and date of : Yes Caregiver verified no other encounters exist for this prescription request: Yes Caregiver confirmed with patient/requestor that no other refills are due, in the near future, with this provider at this time: Yes The last office visit in the department: 09/15/23 Does the patient have a future office visit with this provider/department: Yes Requested Prescriptions Pending Prescriptions Disp Refills warfarin (COUMADIN) 1 mg tablet 30 tablet 5 Sig: Take 1 tablet by mouth once daily. Keke Rinaldi November 16, 2023 9:00 AM [facility]07-24-2024 Telephone encounter Note* Telephone Encounter - Coretta Jalloh RPh - 10/14/2023 4:21 PM EDT [facility] Ambulatory Pharm[facility] Anticoagulation Clinic Anticoagulation Episode Summary Anticoagulation Care Providers Provider Role Specialty Phone number Stas Mora MD Referring Family Medicine [phone] Roby Flores is a 88 year old year old male patient being evaluated today for a Lab INR. Patient is currently on the following anticoagulant(s) Warfarin. Labs PT INR (no units) Date Value 05/19/2022 1.7 05/15/2021 2.3 04/17/2021 1.9 INR (no units) Date Value 10/14/2023 2.3 09/16/2023 2.3 09/02/2023 2.4 Hemoglobin (g/dL) Date Value 06/04/2023 10.0 Hematocrit (%) Date Value 06/04/2023 34.9 Platelet Count (k/uL) Date Value 06/04/2023 297 Creatinine (mg/dL) Date Value 06/03/2023 0.81 08/15/2022 0.89 02/21/2022 0.85 03/13/2021 0.80 08/28/2020 0.83 Bilirubin, Total (mg/dL) Date Value 06/03/2023 0.6 03/13/2021 0.5 ALT (U/L) Date Value 06/03/2023 13 03/13/2021 24 AST (U/L) Date Value 06/03/2023 21 03/13/2021 24 CrCl cannot be calculated (Unknown ideal weight.). ALLERGIES No Known Allergies 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: [facility] current us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 Paroxysmal atrial fibrillation (hcc) Anticoagulation Episode Summary Current INR goal: 2.0-3.0 Assessment: INR result of 2.3 is therapeutic Plan: Current Warfarin Dosing As of 10/14/2023 Full warfarin instructions: 3 mg every Mon, Wed, Sat; 2.5 mg all other days Called and spoke to patient/caregiver Advised patient to continue current weekly dose as noted above Next lab INR check scheduled on 11/11/2023 Patient's caregiver - Maria Guadalupe, verbalizes understanding of the plan. Patient denies need for refills. Coretta Jalloh RPh Clinical Pharmacist, Pharmacy Anticoagulation Clinic Pharmacy Anticoagulation Clinic Pager: [phone]. [facility]07-24-[facility]24 Miscellaneous Notes* Telephone Encounter - Coretta Jalloh RPh - 10/14/2023 4:21 PM EDT [facility] Anticoagulation Clinic Anticoagulation Episode Summary Anticoagulation Care Providers Provider Role Specialty Phone number Stas Mora MD Referring Family Medicine [phone] Roby Flores is a 88 year old year old male patient being evaluated today for a Lab INR. Patient is currently on the following anticoagulant(s) Warfarin. Labs PT INR (no units) Date Value 05/19/2022 1.7 05/15/2021 2.3 04/17/2021 1.9 INR (no units) Date Value 10/14/2023 2.3 09/16/2023 2.3 09/02/2023 2.4 Hemoglobin (g/dL) Date Value 06/04/2023 10.0 Hematocrit (%) Date Value 06/04/2023 34.9 Platelet Count (k/uL) Date Value 06/04/2023 297 Creatinine (mg/dL) Date Value 06/03/2023 0.81 08/15/2022 0.89 02/21/2022 0.85 03/13/2021 0.80 08/28/2020 0.83 Bilirubin, Total (mg/dL) Date Value 06/03/2023 0.6 03/13/2021 0.5 ALT (U/L) Date Value 06/03/2023 13 03/13/2021 24 AST (U/L) Date Value 06/03/2023 21 03/13/2021 24 CrCl cannot be calculated (Unknown ideal weight.). ALLERGIES No Known Allergies 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: [facility] current us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 Paroxysmal atrial fibrillation (hcc) Anticoagulation Episode Summary Current INR goal: 2.0-3.0 Assessment: INR result of 2.3 is therapeutic Plan: Current Warfarin Dosing As of 10/14/2023 Full warfarin instructions: 3 mg every Mon, Wed, Sat; 2.5 mg all other days Called and spoke to patient/caregiver Advised patient to continue current weekly dose as noted above Next lab INR check scheduled on 11/11/2023 Patient's caregiver - Maria Guadalupe, verbalizes understanding of the plan. Patient denies need for refills. Coretta Jalloh RPh Clinical Pharmacist, Pharmacy Anticoagulation Clinic Pharmacy Anticoagulation Clinic Pager: [phone]. documented in this encounterC[facility]06-[facility] Telephone encounter Note * Telephone Encounter - Colleen Stout, [facility] - 09/16/2023 11:15 AM EDT [facility] Ambulatory Pharm[facility] Anticoagulation Clinic Anticoagulation Episode Summary Anticoagulation Care Providers Provider Role Specialty Phone number Stas Mora MD Referring Family Medicine [phone] Roby Flores is a 88 year old year old male patient being evaluated today for a Telemanagement visit. Patient is currently on the following anticoagulant(s) Warfarin. Labs PT INR (no units) Date Value 05/19/2022 1.7 05/15/2021 2.3 04/17/2021 1.9 INR (no units) Date Value 09/16/2023 2.3 09/02/2023 2.4 08/26/2023 2.0 Hemoglobin (g/dL) Date Value 06/04/2023 10.0 Hematocrit (%) Date Value 06/04/2023 34.9 Platelet Count (k/uL) Date Value 06/04/2023 297 Creatinine (mg/dL) Date Value 06/03/2023 0.81 08/15/2022 0.89 02/21/2022 0.85 03/13/2021 0.80 08/28/2020 0.83 Bilirubin, Total (mg/dL) Date Value 06/03/2023 0.6 03/13/2021 0.5 ALT (U/L) Date Value 06/03/2023 13 03/13/2021 24 AST (U/L) Date Value 06/03/2023 21 03/13/2021 24 CrCl cannot be calculated (Unknown ideal weight.). ALLERGIES No Known Allergies 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: Anticoagulation Episode Summary Current INR goal: 2.0-3.0 Assessment: INR result of 2.3 is therapeutic 09/14-seen by Dr. Mora for swelling of both legs. Started on Lasix prn. Plan: Current Warfarin Dosing As of 09/16/2023 Full warfarin instructions: 3 mg every Mon, Wed, Sat; 2.5 mg all other days Called and spoke to patient/caregiver Advised patient to continue current weekly dose as noted above Next lab INR check scheduled on 10/14/2023 Patient's caregiver verbalizes understanding of the plan. Patient denies need for refills. Colleen Stout RPh Clinical Pharmacist, Pharmacy Anticoagulation Clinic Pharmacy Anticoagulation Clinic Pager: [phone]. [facility]06-26-2024 Miscellaneous Notes* Telephone Encounter - Colleen Stout RPh - 09/16/2023 11:15 AM EDT [facility] Amb[facility] Anticoagulation Clinic Anticoagulation Episode Summary Anticoagulation Care Providers Provider Role Specialty Phone number Stas Mora MD Referring Family Medicine [phone] Roby Flores is a 88 year old year old male patient being evaluated today for a Telemanagement visit. Patient is currently on the following anticoagulant(s) Warfarin. Labs PT INR (no units) Date Value 05/19/2022 1.7 05/15/2021 2.3 04/17/2021 1.9 INR (no units) Date Value 09/16/2023 2.3 09/02/2023 2.4 08/26/2023 2.0 Hemoglobin (g/dL) Date Value 06/04/2023 10.0 Hematocrit (%) Date Value 06/04/2023 34.9 Platelet Count (k/uL) Date Value 06/04/2023 297 Creatinine (mg/dL) Date Value 06/03/2023 0.81 08/15/2022 0.89 02/21/2022 0.85 03/13/2021 0.80 08/28/2020 0.83 Bilirubin, Total (mg/dL) Date Value 06/03/2023 0.6 03/13/2021 0.5 ALT (U/L) Date Value 06/03/2023 13 03/13/2021 24 AST (U/L) Date Value 06/03/2023 21 03/13/2021 24 CrCl cannot be calculated (Unknown ideal weight.). ALLERGIES No Known Allergies 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: Anticoagulation Episode Summary Current INR goal: 2.0-3.0 Assessment: INR result of 2.3 is therapeutic 09/14-seen by Dr. Mora for swelling of both legs. Started on Lasix prn. Plan: Current Warfarin Dosing As of 09/16/2023 Full warfarin instructions: 3 mg every Mon, Wed, Sat; 2.5 mg all other days Called and spoke to patient/caregiver Advised patient to continue current weekly dose as noted above Next lab INR check scheduled on 10/14/2023 Patient's caregiver verbalizes understanding of the plan. Patient denies need for refills. Colleen Stout RPh Clinical Pharmacist, Pharmacy Anticoagulation Clinic Pharmacy Anticoagulation Clinic Pager: [phone]. documented in this encounterCleveland [facility]06-25-2024 Instructions* Patient Instructions* Rosie Cruz MA - 09/15/2023 8:48 AM EDT Starting Lasix (Furosemide) 20 mg once daily as needed. You can use the medication on days where swelling is increased. Elevate legs through out the day to help with swelling. Decrease sodium in diet. documented in this encounterCleveland Clinic [facility]06-25-2024 History of Present illness Narrative* Stas Mora MD - 09/15/2023 8:40 AM EDT Chief Complaint Patient presents with: Edema: B/L lower legs HPI Roby Flores is a 88 year old male who presents here today for swelling. Pt here today with his . Pt and concerned about bilateral leg swelling that has been ongoing intermittently. Not exactly sure how long this has been going on or what causes the swelling. At times the pain is very uncomfortable. Unable to tell what causes this, feels it may be worse later in the day into the evening. States yesterday was really bad. states that his socks were cutting into him due to the edema, possibly socks were too tight but unsure. Today they don't look too bad at all, denies having much swelling at all today. Swelling goes about half way up each calf, pitting edema >1/4 inch (6 mm) deep, rest and elevation only with partial decrease in swelling. Does not wear compression stockings. No redness to legs, no pain, no fevers, no chest pains, SOB, dizziness. No hx of blood clots, cancer, heart failure, kidney disease, or liver failure. Past medical history, appointments, medications, allergies reviewed. Previous Medical History PAST MEDICAL HISTORY Diagnosis Date Coronary atherosclerosis of unspecified type of vessel, pauma or graft Coronary artery disease Other and unspecified hyperlipidemia Unspecified essential hypertension Essential hypertension Previous Surgical History PAST SURGICAL HISTORY Procedure Laterality Date APPENDECTOMY PERC TRANSL COR ANGIO 2005 last time Percutaneous Transluminal Coronary Angio Status 3 procedures Family History FAMILY HISTORY Problem Relation Age of Onset Arthritis Mother Alcohol/Drug Father Stroke Father Cancer Brother 50 Stomach cancer Patient Allergies ALLERGIES No Known Allergies Current Medications Current Outpatient Medications on File Prior to Visit Medication Sig donepezil (ARICEPT) 5 mg tablet Take 1 tablet by mouth daily at bedtime. warfarin (COUMADIN) 1 mg tablet Take 1 tablet by mouth daily as directed. warfarin (COUMADIN) 1 mg tablet Take 1 tablet by mouth once daily. tamsulosin (FLOMAX) 0.4 mg Take 1 capsule by mouth daily at bedtime. warfarin (COUMADIN) 2.5 mg tablet Take 2.5 mg everyday except 3.75 mg on Fridays atorvastatin (LIPITOR) 40 mg tablet Take 1 tablet by mouth daily at bedtime. aspirin 81 mg chewable tablet Take 1 tablet by mouth once daily. lisinopril (ZESTRIL) 10 mg tablet Take 1 tablet by mouth once daily. No current facility-administered medications on file prior to visit. Social History Social History Tobacco Use Smoking status: Former Smokeless tobacco: Never Tobacco comments: 30 yaers ago Substance Use Topics Alcohol use: No Drug use: No EXAM: BP 138/84 (BP Site: Left Arm, BP Position: Sitting, BP Cuff Size: Regular Adult) Pulse 76 Resp 18 Wt 79.7 kg (175 lb 12.8 oz) BMI 24.52 kg/m General Appearance: Well appearing, alert, in no acute distress, well-hydrated, well nourished and using a cane. Lungs: Lungs clear to auscultation. No wheezing, rhonchi, rales.. Heart: RRR without murmur, gallop, or rubs. No ectopy. Extremities: Edema: Slight edema noted on today's exam bilaterally. Sock line noted. Health Maintenance List RSV Vaccine(-dose 60+ series) Never done Covid-19 Vaccine( season) due on 05/13/2023 LDL Cholesterol due on 06/02/2024 Diabetes Screening due on 06/02/2026 DTaP,Tdap,Td Vaccine(2 - Td or Tdap) due on 02/27/2031 Influenza Vaccine Completed Advance Directive Discussion Completed Behavioral Health Screening Completed Shingrix Vaccine Completed Pneumococcal Vaccine: 65+ Completed Data reviewed None ASSESSMENT/PLAN: 1. Edema of both lower legs - ICD9: 782.3, ICD10: R60.0 - Start low dosage of Lasix 20 mg once daily as needed. Follow up as scheduled in Nov. I agree with the Chief Complaint, ROS, and Past Histories independently gathered by the clinical patient support tech and the remaining scribed note accurately describes my personal service to the patient. Medical Decision Making: Problems: Low: Acute, uncomplicated illness or injury Risk: Moderate: Drug management Medical Decision Making Level: 3 - Low Stas Mora MD The documentation for this note was completed by Rosie Cruz MA acting as scribe for Stas Mora MD. September 15, 2023 8:45 AM. Rosie Cruz MA documented in this encounterC[facility] NoteHNO ID: [id number] Author: STAS MORA MD Service: ? Author Type: Physician Type: Progress Notes Filed: 09/15/2023 08:52 Note Text: Chief Complaint Patient presents with: Edema: B/L lower legs HPI Roby Flores is a 88 year old male who presents here today for swelling. Pt here today with his . Pt and concerned about bilateral leg swelling that has been ongoing intermittently. Not exactly sure how long this has been going on or what causes the swelling. At times the pain is very uncomfortable. Unable to tell what causes this, feels it may be worse later in the day into the evening. States yesterday was really bad. states that his socks were cutting into him due to the edema, possibly socks were too tight but unsure. Today they don't look too bad at all, denies having much swelling at all today. Swelling goes about half way up each calf, pitting edema >1/4 inch (6 mm) deep, rest and elevation only with partial decrease in swelling. Does not wear compression stockings. No redness to legs, no pain, no fevers, no chest pains, SOB, dizziness. No hx of blood clots, cancer, heart failure, kidney disease, or liver failure. Past medical history, appointments, medications, allergies reviewed. Previous Medical History PAST MEDICAL HISTORY Diagnosis Date Coronary atherosclerosis of unspecified type of vessel, pauma or graft Coronary artery disease Other and unspecified hyperlipidemia Unspecified essential hypertension Essential hypertension Previous Surgical History PAST SURGICAL HISTORY Procedure Laterality Date APPENDECTOMY PERC TRANSL COR ANGIO 2005 last time Percutaneous Transluminal Coronary Angio Status 3 procedures Family History FAMILY HISTORY Problem Relation Age of Onset Arthritis Mother Alcohol/Drug Father Stroke Father Cancer Brother 50 Stomach cancer Patient Allergies ALLERGIES No Known Allergies Current Medications Current Outpatient Medications on File Prior to Visit Medication Sig donepezil (ARICEPT) 5 mg tablet Take 1 tablet by mouth daily at bedtime. warfarin (COUMADIN) 1 mg tablet Take 1 tablet by mouth daily as directed. warfarin (COUMADIN) 1 mg tablet Take 1 tablet by mouth once daily. tamsulosin (FLOMAX) 0.4 mg Take 1 capsule by mouth daily at bedtime. warfarin (COUMADIN) 2.5 mg tablet Take 2.5 mg everyday except 3.75 mg on Fridays atorvastatin (LIPITOR) 40 mg tablet Take 1 tablet by mouth daily at bedtime. aspirin 81 mg chewable tablet Take 1 tablet by mouth once daily. lisinopril (ZESTRIL) 10 mg tablet Take 1 tablet by mouth once daily. No current facility-administered medications on file prior to visit. Social History Social History Tobacco Use Smoking status: Former Smokeless tobacco: Never Tobacco comments: 30 yaers ago Substance Use Topics Alcohol use: No Drug use: No EXAM: BP 138/84 (BP Site: Left Arm, BP Position: Sitting, BP Cuff Size: Regular Adult) Pulse 76 Resp 18 Wt 79.7 kg (175 lb 12.8 oz) BMI 24.52 kg/m? General Appearance: Well appearing, alert, in no acute distress, well-hydrated, well nourished and using a cane. Lungs: Lungs clear to auscultation. No wheezing, rhonchi, rales.. Heart: RRR without murmur, gallop, or rubs. No ectopy. Extremities: Edema: Slight edema noted on today's exam bilaterally. Sock line noted. Health Maintenance List RSV Vaccine(1 - 1-dose 60+ series) Never done Covid-19 Vaccine( season) due on 05/13/2023 LDL Cholesterol due on 06/02/2024 Diabetes Screening due on 06/02/2026 DTaP,Tdap,Td Vaccine(2 - Td or Tdap) due on 02/27/2031 Influenza Vaccine Completed Advance Directive Discussion Completed Behavioral Health Screening Completed Shingrix Vaccine Completed Pneumococcal Vaccine: 65+ Completed Data reviewed None ASSESSMENT/PLAN: 1. Edema of both lower legs - ICD9: 782.3, ICD10: R60.0 - Start low dosage of Lasix 20 mg once daily as needed. Follow up as scheduled in Nov. I agree with the Chief Complaint, ROS, and Past Histories independently gathered by the clinical patient support tech and the remaining scribed note accurately describes my personal service to the patient. Medical Decision Making: Problems: Low: Acute, uncomplicated illness or injury Risk: Moderate: Drug management Medical Decision Making Level: 3 - Low Stas Mora MD The documentation for this note was completed by Rosie Cruz MA acting as scribe for Stas Mora MD. September 15, 2023 8:[address] [facility]06-24-2024 Telephone encounter Note* Telephone Encounter - Marian Corona RN - 09/14/2023 3:24 PM EDT Significant other (Maria Guadalupe) called and patient present. Nurse triage completed with Maria Guadalupe relaying questions to patient. Per protocol. See provider within 24 hours. Patient scheduled for tomorrow morning at [address] Mora. Care advice reviewed. Maria Guadalupe verbalizes understanding. Reason for Disposition [1] MODERATE leg swelling (e.g., swelling extends up to knees) AND [2] new-onset or worsening Answer Assessment - Initial Assessment Questions 1. ONSET: Off and on for quite some time. Patient not sure exactly how long. 2. LOCATION: Bilateral legs. Approximately 1[address] up each calf. 3. SEVERITY: - MODERATE edema: Swelling of lower leg to knee, pitting edema > 1/4 inch (6 mm) deep, rest and elevation only partially reduce swelling. 4. REDNESS: No redness 5. PAIN: No pain 6. FEVER:No fever 7. CAUSE: Patient not certain. 8. MEDICAL HISTORY: No history of blood clots (e.g., DVT), cancer, heart failure, kidney disease, or liver failure 9. RECURRENT SYMPTOM: No 10. OTHER SYMPTOMS: No chest pain or difficulty breathing Protocols used: Leg Swelling and [id number]-LE [facility]06-[facility] Miscellaneous Notes* Telephone Encounter - Marian Coroan RN - 09/14/2023 3:24 PM EDT Significant other (Maria Guadalupe) called and patient present. Nurse triage completed with Maria Guadalupe relaying questions to patient. Per protocol. See provider within 24 hours. Patient scheduled for tomorrow morning at [address] Mora. Care advice reviewed. Maria Guadalupe verbalizes understanding. Reason for Disposition [1] MODERATE leg swelling (e.g., swelling extends up to knees) AND [2] new-onset or worsening Answer Assessment - Initial Assessment Questions 1. ONSET: Off and on for quite some time. Patient not sure exactly how long. 2. LOCATION: Bilateral legs. Approximately 1/[address] up each calf. 3. SEVERITY: - MODERATE edema: Swelling of lower leg to knee, pitting edema > 1/4 inch (6 mm) deep, rest and elevation only partially reduce swelling. 4. REDNESS: No redness 5. PAIN: No pain 6. FEVER:No fever 7. CAUSE: Patient not certain. 8. MEDICAL HISTORY: No history of blood clots (e.g., DVT), cancer, heart failure, kidney disease, or liver failure 9. RECURRENT SYMPTOM: No 10. OTHER SYMPTOMS: No chest pain or difficulty breathing Protocols used: Leg Swelling and [id number] * Telephone Encounter - Elana Valdes RN - 09/14/2023 2:52 PM EDT Called and left a voicemail for the Patient and on the Pts girlfriends phone to have the Pt call back and ask for a nurse to receive the providers message. We need more information about his bilateral leg swelling that he was scheduled for tomorrow. Elana Valdes RN documented in this encounterC[facility]06-24-2024 Telephone encounter Note * Telephone Encounter - Elana Valdes RN - 09/14/2023 2:52 PM EDT Called and left a voicemail for the Patient and on the Pts girlfriends phone to have the Pt call back and ask for a nurse to receive the providers message. We need more information about his bilateral leg swelling that he was scheduled for tomorrow. Elana Valdes RN [facility]06-12-2024 Telephone encounter Note* Telephone Encounter - Coretta Jalloh RP - 09/02/2023 3:08 PM EDT [facility] Clinic Anticoagulation Episode Summary Anticoagulation Care Providers Provider Role Specialty Phone number Stas Mora MD Referring Family Medicine [phone] Roby Flores is a 88 year old year old male patient being evaluated today for a Lab INR. Patient is currently on the following anticoagulant(s) Warfarin. Labs PT INR (no units) Date Value 05/19/2022 1.7 05/15/2021 2.3 04/17/2021 1.9 INR (no units) Date Value 09/02/2023 2.4 08/26/2023 2.0 08/19/2023 1.9 Hemoglobin (g/dL) Date Value 06/04/2023 10.0 Hematocrit (%) Date Value 06/04/2023 34.9 Platelet Count (k/uL) Date Value 06/04/2023 297 Creatinine (mg/dL) Date Value 06/03/2023 0.81 08/15/2022 0.89 02/21/2022 0.85 03/13/2021 0.80 08/28/2020 0.83 Bilirubin, Total (mg/dL) Date Value 06/03/2023 0.6 03/13/2021 0.5 ALT (U/L) Date Value 06/03/2023 13 03/13/2021 24 AST (U/L) Date Value 06/03/2023 21 03/13/2021 24 CrCl cannot be calculated (Unknown ideal weight.). 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 Two therapeutic results in a row! Plan: Current Warfarin Dosing As of 09/02/2023 Full warfarin instructions: 3 mg every Mon, Wed, Sat; 2.5 mg all other days Called and spoke to patient/caregiver Advised patient to continue current weekly dose as noted above Next lab INR check scheduled on 09/16/2023 Maria Guadalupe verbalizes understanding of the plan. Patient denies need for refills. Coretta Jalloh RPh Clinical Pharmacist, Pharmacy Anticoagulation Clinic Pharmacy [facility] Pager: [phone]. [facility]06-12-[facility] Miscellaneous Notes* Telephone Encounter - Coretta Jalloh RPh - 09/02/2023 3:08 PM EDT [facility] Antico[facility] Clinic Anticoagulation Episode Summary Anticoagulation Care Providers Provider Role Specialty Phone number Stas Mora MD Referring Family Medicine [phone] Roby Flores is a 88 year old year old male patient being evaluated today for a Lab INR. Patient is currently on the following anticoagulant(s) Warfarin. Labs PT INR (no units) Date Value 05/19/2022 1.7 05/15/2021 2.3 04/17/2021 1.9 INR (no units) Date Value 09/02/2023 2.4 08/26/2023 2.0 08/19/2023 1.9 Hemoglobin (g/dL) Date Value 06/04/2023 10.0 Hematocrit (%) Date Value 06/04/2023 34.9 Platelet Count (k/uL) Date Value 06/04/2023 297 Creatinine (mg/dL) Date Value 06/03/2023 0.81 08/15/2022 0.89 02/21/2022 0.85 03/13/2021 0.80 08/28/2020 0.83 Bilirubin, Total (mg/dL) Date Value 06/03/2023 0.6 03/13/2021 0.5 ALT (U/L) Date Value 06/03/2023 13 03/13/2021 24 AST (U/L) Date Value 06/03/2023 21 03/13/2021 24 CrCl cannot be calculated (Unknown ideal weight.). ALLERGIES No Known Allergies 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: [facility] current us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 Paroxysmal atrial fibrillation (hcc) Anticoagulation Episode Summary Current INR goal: 2.0-3.0 Assessment: INR result of 2.4 is therapeutic following very slight dose increase. Two therapeutic results in a row! Plan: Current Warfarin Dosing As of 09/02/2023 Full warfarin instructions: 3 mg every Mon, Wed, Sat; 2.5 mg all other days Called and spoke to patient/caregiver Advised patient to continue current weekly dose as noted above Next lab INR check scheduled on 09/16/2023 Maria Guadalupe verbalizes understanding of the plan. Patient denies need for refills. Coretta Jalloh RPh Clinical Pharmacist, Pharmacy Anticoagulation Clinic Pharmacy An[facility] Pager: [phone]. documented in this encounterC[facility]06-[facility] Telephone encounter Note * Telephone Encounter - Coretta Jalloh RPh - 08/26/2023 5:03 PM EDT [facility] An[facility] Clinic Anticoagulation Episode Summary Anticoagulation Care Providers Provider Role Specialty Phone number Stas Mora MD Referring Family Medicine [phone] Roby Flores is a 88 year old year old male patient being evaluated today for a Lab INR. Patient is currently on the following anticoagulant(s) Warfarin. Labs PT INR (no units) Date Value 05/19/2022 1.7 05/15/2021 2.3 04/17/2021 1.9 INR (no units) Date Value 08/26/2023 2.0 08/19/2023 1.9 08/12/2023 1.4 Hemoglobin (g/dL) Date Value 06/04/2023 10.0 Hematocrit (%) Date Value 06/04/2023 34.9 Platelet Count (k/uL) Date Value 06/04/2023 297 Creatinine (mg/dL) Date Value 06/03/2023 0.81 08/15/2022 0.89 02/21/2022 0.85 03/13/2021 0.80 08/28/2020 0.83 Bilirubin, Total (mg/dL) Date Value 06/03/2023 0.6 03/13/2021 0.5 ALT (U/L) Date Value 06/03/2023 13 03/13/2021 24 AST (U/L) Date Value 06/03/2023 21 03/13/2021 24 CrCl cannot be calculated (Unknown ideal weight.). ALLERGIES No Known Allergies 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: [facility] current us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 Paroxysmal atrial fibrillation (hcc) Anticoagulation Episode Summary Current INR goal: 2.0-3.0 Assessment: INR result of 2.0 is therapeutic following recent dose increase. Plan: Current Warfarin Dosing As of 08/26/2023 Full warfarin instructions: 3 mg every Mon, Wed, Sat; 2.5 mg all other days Left voice message For Maria Guadalupe. Advised patient to increase total weekly regimen but a little more since INR is on the low end. Next lab INR check scheduled on 09/02/2023 Coretta Jalloh RPh Clinical Pharmacist, Pharmacy Anticoagulation Clinic Pharmacy Antico[facility] Pager: [phone]. [facility]06-[facility] Miscellaneous Notes* Telephone Encounter - Coretta Jalloh RPh - 08/26/2023 5:03 PM EDT [facility] Anticoagulation Episode Summary Anticoagulation Care Providers Provider Role Specialty Phone number Stas Mora MD Referring Family Medicine [phone] Roby Flores is a 88 year old year old male patient being evaluated today for a Lab INR. Patient is currently on the following anticoagulant(s) Warfarin. Labs PT INR (no units) Date Value 05/19/2022 1.7 05/15/2021 2.3 04/17/2021 1.9 INR (no units) Date Value 08/26/2023 2.0 08/19/2023 1.9 08/12/2023 1.4 Hemoglobin (g/dL) Date Value 06/04/2023 10.0 Hematocrit (%) Date Value 06/04/2023 34.9 Platelet Count (k/uL) Date Value 06/04/2023 297 Creatinine (mg/dL) Date Value 06/03/2023 0.81 08/15/2022 0.89 02/21/2022 0.85 03/13/2021 0.80 08/28/2020 0.83 Bilirubin, Total (mg/dL) Date Value 06/03/2023 0.6 03/13/2021 0.5 ALT (U/L) Date Value 06/03/2023 13 03/13/2021 24 AST (U/L) Date Value 06/03/2023 21 03/13/2021 24 CrCl cannot be calculated (Unknown ideal weight.). 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 Paroxysmal atrial fibrillation (hcc) Anticoagulation Episode Summary Current INR goal: 2.0-3.0 Assessment: INR result of 2.0 is therapeutic following recent dose increase. Plan: Current Warfarin Dosing As of 08/26/2023 Full warfarin instructions: 3 mg every Mon, Wed, Sat; 2.5 mg all other days Left voice message For Maria Guadalupe. Advised patient to increase total weekly regimen but a little more since INR is on the low end. Next lab INR check scheduled on 09/02/2023 Coretta Jalloh RPh Clinical Pharmacist, Pharmacy Anticoagulation Clinic Pharmacy Anticoagulation Clinic Pager: [phone]. documented in this encounterC[facility]05-[facility] Telephone encounter Note * Telephone Encounter - Coretta Jalloh RPh - 08/19/2023 5:09 PM EDT [facility] Ambulatory [facility] Anticoagulation Clinic Anticoagulation Episode Summary Anticoagulation Care Providers Provider Role Specialty Phone number Stas Mora MD Referring Family Medicine [phone] Roby Flores is a 88 year old year old male patient being evaluated today for a Telemanagement visit. Patient is currently on the following anticoagulant(s) Warfarin. Labs PT INR (no units) Date Value 05/19/2022 1.7 05/15/2021 2.3 04/17/2021 1.9 INR (no units) Date Value 08/19/2023 1.9 08/12/2023 1.4 08/05/2023 1.5 Hemoglobin (g/dL) Date Value 06/04/2023 10.0 Hematocrit (%) Date Value 06/04/2023 34.9 Platelet Count (k/uL) Date Value 06/04/2023 297 Creatinine (mg/dL) Date Value 06/03/2023 0.81 08/15/2022 0.89 02/21/2022 0.85 03/13/2021 0.80 08/28/2020 0.83 Bilirubin, Total (mg/dL) Date Value 06/03/2023 0.6 03/13/2021 0.5 ALT (U/L) Date Value 06/03/2023 13 03/13/2021 24 AST (U/L) Date Value 06/03/2023 21 03/13/2021 24 Estimated Creatinine Clearance: 65.5 mL/min (based on SCr of 0.81 mg/dL). ALLERGIES No Known Allergies 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: Anticoagulation Episode Summary Current INR goal: 2.0-3.0 Assessment: INR result of 1.9 is SUBtherapeutic due to: No obvious cause Plan: Current Warfarin Dosing As of 08/12/2023 Full warfarin instructions: 08/11: 3 mg; Otherwise 2.5 mg every day Called and spoke to patient/caregiver Advised patient to increase total weekly regimen Next lab INR check scheduled on 08/26/23 - will have a re-education tomorrow. We did send the new ed video but Maria Guadalupe said she still has to watch it. Patient's caregiver verbalizes understanding of the plan. Patient denies need for refills. Coretta Jalloh RPh Clinical Pharmacist, Pharmacy Anticoagulation Clinic Pharmacy Anticoagulation Clinic Pager: [phone]. [facility]05-29-[facility] Miscellaneous Notes* Telephone Encounter - Coretta Jalloh RPh - 08/19/2023 5:09 PM EDT [facility] Ambulatory Pharmacy Anticoagulation Clinic Anticoagulation Episode Summary Anticoagulation Care Providers Provider Role Specialty Phone number Stas Mora MD Referring Family Medicine [phone] Roby Flores is a 88 year old year old male patient being evaluated today for a Telemanagement visit. Patient is currently on the following anticoagulant(s) Warfarin. Labs PT INR (no units) Date Value 05/19/2022 1.7 05/15/2021 2.3 04/17/2021 1.9 INR (no units) Date Value 08/19/2023 1.9 08/12/2023 1.4 08/05/2023 1.5 Hemoglobin (g/dL) Date Value 06/04/2023 10.0 Hematocrit (%) Date Value 06/04/2023 34.9 Platelet Count (k/uL) Date Value 06/04/2023 297 Creatinine (mg/dL) Date Value 06/03/2023 0.81 08/15/2022 0.89 02/21/2022 0.85 03/13/2021 0.80 08/28/2020 0.83 Bilirubin, Total (mg/dL) Date Value 06/03/2023 0.6 03/13/2021 0.5 ALT (U/L) Date Value 06/03/2023 13 03/13/2021 24 AST (U/L) Date Value 06/03/2023 21 03/13/2021 24 Estimated Creatinine Clearance: 65.5 mL/min (based on SCr of 0.81 mg/dL). ALLERGIES No Known Allergies 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: Anticoagulation Episode Summary Current INR goal: 2.0-3.0 Assessment: INR result of 1.9 is SUBtherapeutic due to: No obvious cause Plan: Current Warfarin Dosing As of 08/12/2023 Full warfarin instructions: 08/11: 3 mg; Otherwise 2.5 mg every day Called and spoke to patient/caregiver Advised patient to increase total weekly regimen Next lab INR check scheduled on 08/26/23 - will have a re-education tomorrow. We did send the new ed video but Maria Guadalupe said she still has to watch it. Patient's caregiver verbalizes understanding of the plan. Patient denies need for refills. Coretta Jalloh RPh Clinical Pharmacist, Pharmacy Anticoagulation Clinic Pharmacy Anticoagulation Clinic Pager: [phone]. documented in this encounterC[facility]05[facility] History of Present illness Narrative* Stas Mora MD - 08/14/2023 10:00 AM EDT Chief Complaint Patient presents with: memory issues HPI Roby Flores is a 88 year old male who presents here today for memory issues. Here with is . Pt and family concerned about pt memory. Pt thinks his memory is ok. states he is forgetting every day things, can't find items that are in their usual spots. He doesn't remember appts or times.He thinks things are happening that are not happening, thinks he is being sued by a tenriism and thathe was given a letter about it, doesn't know who the rate clerk passenger is or where the tenriism is. states this is not true. He was looking for his brother who lives out of state, thought he was still staying with them, however he has not been up to [place] since Jan. No hallucinations. Is not leaving the home in the middle of the night. Sleeping a lot, more than normal. Does not do any driving or cooking. He knows who the President is and knows that the year is 2023. Is not forgetting who people are. Pt states he has dreams about paying bills but it hasn't happened and then he is paranoid and worriedthat he missed a payment and his credit is being ruined. He states he doesn't know what to believe. Behavioral Health Screening (Lower risk for depression) YARELIS-2 Score: 0 (Lower risk for anxiety) Recommendation: no further intervention at this time Past medical history, appointments, medications, allergies reviewed. Previous Medical History PAST MEDICAL HISTORY Diagnosis Date Coronary atherosclerosis of unspecified type of vessel, pauma or graft Coronary artery disease Other and unspecified hyperlipidemia Unspecified essential hypertension Essential hypertension Previous Surgical History PAST SURGICAL HISTORY Procedure Laterality Date APPENDECTOMY PERC TRANSL COR ANGIO 2006 last time Percutaneous Transluminal Coronary Angio Status 3 procedures Family History FAMILY HISTORY Problem Relation Age of Onset Arthritis Mother Alcohol/Drug Father Stroke Father Cancer Brother 50 Stomach cancer Patient Allergies ALLERGIES No Known Allergies Current Medications Current Outpatient Medications on File Prior to Visit Medication Sig warfarin (COUMADIN) 1 mg tablet Take 1 tablet by mouth daily as directed. warfarin (COUMADIN) 1 mg tablet Take 1 tablet by mouth once daily. tamsulosin (FLOMAX) 0.4 mg Take 1 capsule by mouth daily at bedtime. warfarin (COUMADIN) 2.5 mg tablet Take 2.5 mg everyday except 3.75 mg on Fridays atorvastatin (LIPITOR) 40 mg tablet Take 1 tablet by mouth daily at bedtime. aspirin 81 mg chewable tablet Take 1 tablet by mouth once daily. lisinopril (ZESTRIL) 10 mg tablet Take 1 tablet by mouth once daily. No current facility-administered medications on file prior to visit. Social History Social History Tobacco Use Smoking status: Former Smokeless tobacco: Never Tobacco comments: 30 yaers ago Substance Use Topics Alcohol use: No Drug use: No EXAM: BP 140/80 Pulse 64 Resp 14 Wt 73.5 kg (162 lb) BMI 22.59 kg/m General Appearance: Well appearing, alert, in no acute distress, well-hydrated, well nourished.. Lungs: Lungs clear to auscultation. No wheezing, rhonchi, rales.. Heart: RRR without murmur, gallop, or rubs. No ectopy. Health Maintenance List RSV Vaccine(1 - 1-dose 60+ series) Never done Behavioral Health Screening Never done Covid-19 Vaccine( season) due on 05/13/2023 LDL Cholesterol due on 06/02/2024 Diabetes Screening due on 06/02/2026 DTaP,Tdap,Td Vaccine(2 - Td or Tdap) due on 02/27/2031 Influenza Vaccine Completed Advance Directive Discussion Completed Shingrix Vaccine Completed Pneumococcal Vaccine: 65+ Completed Data reviewed None ASSESSMENT/PLAN: 1. 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 I agree with the Chief Complaint, ROS, and Past Histories independently gathered by the clinical patient support tech and the remaining scribed note accurately describes my personal service to the patient. Medical Decision Making: Problems: Moderate: New problem with uncertain prognosis Risk: Moderate: Drug management Medical Decision Making Level: 4 - Moderate Stas Mora MD The documentation for this note was completed by Marta Palacio MA acting as scribe for Stas Mora MD. August 14, 2023 9:51 AM. Marta Palacio MA documented in this encounterCleveland [facility] NoteHNO ID: [id number] Author: STAS MORA MD Service: ? Author Type: Physician Type: Progress Notes Filed: 08/14/2023 10:20 Note Text: Chief Complaint Patient presents with: memory issues HPI Roby Flores is a 88 year old male who presents here today for memory issues. Here with is . Pt and family concerned about pt memory. Pt thinks his memory is ok. states he is forgetting every day things, can't find items that are in their usual spots. He doesn't remember appts or times. He thinks things are happening that are not happening, thinks he is being sued by a tenriism and that he was given a letter about it, doesn't know who the rate clerk passenger is or where the tenriism is. states this is not true. He was looking for his brother who lives out of state, thought he was still staying with them, however he has not been up to [place] since Jan. No hallucinations. Is not leaving the home in the middle of the night. Sleeping a lot, more than normal. Does not do any driving or cooking. He knows who the President is and knows that the year is 2023. Is not forgetting who people are. Pt states he has dreams about paying bills but it hasn't happened and then he is paranoid and worried that he missed a payment and his credit is being ruined. He states he doesn't know what to believe. Behavioral Health Screening (Lower risk for depression) YARELIS-2 Score: 0 (Lower risk for anxiety) Recommendation: no further intervention at this time Past medical history, appointments, medications, allergies reviewed. Previous Medical History PAST MEDICAL HISTORY Diagnosis Date Coronary atherosclerosis of unspecified type of vessel, pauma or graft Coronary artery disease Other and unspecified hyperlipidemia Unspecified essential hypertension Essential hypertension Previous Surgical History PAST SURGICAL HISTORY Procedure Laterality Date APPENDECTOMY PERC TRANSL COR ANGIO 2005 last time Percutaneous Transluminal Coronary Angio Status 3 procedures Family History FAMILY HISTORY Problem Relation Age of Onset Arthritis Mother Alcohol/Drug Father Stroke Father Cancer Brother 50 Stomach cancer Patient Allergies ALLERGIES No Known Allergies Current Medications Current Outpatient Medications on File Prior to Visit Medication Sig warfarin (COUMADIN) 1 mg tablet Take 1 tablet by mouth daily as directed. warfarin (COUMADIN) 1 mg tablet Take 1 tablet by mouth once daily. tamsulosin (FLOMAX) 0.4 mg Take 1 capsule by mouth daily at bedtime. warfarin (COUMADIN) 2.5 mg tablet Take 2.5 mg everyday except 3.75 mg on Fridays atorvastatin (LIPITOR) 40 mg tablet Take 1 tablet by mouth daily at bedtime. aspirin 81 mg chewable tablet Take 1 tablet by mouth once daily. lisinopril (ZESTRIL) 10 mg tablet Take 1 tablet by mouth once daily. No current facility-administered medications on file prior to visit. Social History Social History Tobacco Use Smoking status: Former Smokeless tobacco: Never Tobacco comments: 30 yaers ago Substance Use Topics Alcohol use: No Drug use: No EXAM: BP 140/80 Pulse 64 Resp 14 Wt 73.5 kg (162 lb) BMI 22.59 kg/m? General Appearance: Well appearing, alert, in no acute distress, well-hydrated, well nourished.. Lungs: Lungs clear to auscultation. No wheezing, rhonchi, rales.. Heart: RRR without murmur, gallop, or rubs. No ectopy. Health Maintenance List RSV Vaccine(1 - 1-dose 60+ series) Never done Behavioral Health Screening Never done Covid-19 Vaccine(2022-) due on 05/13/2023 LDL Cholesterol due on 06/02/2024 Diabetes Screening due on 06/02/2026 DTaP,Tdap,Td Vaccine(2 - Td or Tdap) due on 02/27/2031 Influenza Vaccine Completed Advance Directive Discussion Completed Shingrix Vaccine Completed Pneumococcal Vaccine: 65+ Completed Data reviewed None ASSESSMENT/PLAN: 1. 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 I agree with the Chief Complaint, ROS, and Past Histories independently gathered by the clinical patient support tech and the remaining scribed note accurately describes my personal service to the patient. Medical Decision Making: Problems: Moderate: New problem with uncertain prognosis Risk: Moderate: Drug management Medical Decision Making Level: 4 - Moderate Stas Mora MD The documentation for this note was completed by aMrta Palacio MA acting as scribe for Stas Mora MD. August 14, 2023 9:51 AM. Marta Palacio [facility]05-22-2024 Telephone encounter Note * Telephone Encounter - Yeimi Coretta [facility] - 08/12/2023 4:27 PM EDT [facility] Anticoagulation Episode Summary Anticoagulation Care Providers Provider Role Specialty Phone number Stas Mora MD Referring Family Medicine [phone] Roby Flores is a 87 year old year old male patient being evaluated today for a Telemanagement visit. Patient is currently on the following anticoagulant(s) Warfarin. Labs PT INR (no units) Date Value 05/19/2022 1.7 05/15/2021 2.3 04/17/2021 1.9 INR (no units) Date Value 08/12/2023 1.4 08/05/2023 1.5 07/29/2023 1.3 Hemoglobin (g/dL) Date Value 06/04/2023 10.0 Hematocrit (%) Date Value 06/04/2023 34.9 Platelet Count (k/uL) Date Value 06/04/2023 297 Creatinine (mg/dL) Date Value 06/03/2023 0.81 08/15/2022 0.89 02/21/2022 0.85 03/13/2021 0.80 08/28/2020 0.83 Bilirubin, Total (mg/dL) Date Value 06/03/2023 0.6 03/13/2021 0.5 ALT (U/L) Date Value 06/03/2023 13 03/13/2021 24 AST (U/L) Date Value 06/03/2023 21 03/13/2021 24 Estimated Creatinine Clearance: 68.4 mL/min (based on SCr of 0.81 mg/dL). 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 Paroxysmal atrial fibrillation (hcc) Anticoagulation Episode Summary Current INR goal: 2.0-3.0 Assessment: INR result of 1.4 is SUBtherapeutic due to: No obvious cause despite recent dose increase. Will send in the new pt ed video and schedule time next week to talk a little more on warfarin re-education. Hopefully this will help in our relationship and his healthcare experience. Plan: Current Warfarin Dosing As of 08/12/2023 Full warfarin instructions: 08/11: 3 mg; Otherwise 2.5 mg every day Called and spoke to patient/caregiver Advised patient to increase total weekly regimen Next lab INR check scheduled on 08/19/2023 Maria Guadalupe verbalizes understanding of the plan. Patient denies need for refills. Coretta Jalloh RPh Clinical Pharmacist, Pharmacy Anticoagulation Clinic Pharmacy Anticoagulation Clinic Pager: [phone]. [facility]05-22-[facility]24 Miscellaneous Notes* Telephone Encounter - Coretta Jalloh RPh - 08/12/2023 4:27 PM EDT [facility] Ambulatory Pharm[facility] Anticoagulation Clinic Anticoagulation Episode Summary Anticoagulation Care Providers Provider Role Specialty Phone number Stas Mora MD Referring Family Medicine [phone] Roby Flores is a 87 year old year old male patient being evaluated today for a Telemanagement visit. Patient is currently on the following anticoagulant(s) Warfarin. Labs PT INR (no units) Date Value 05/19/2022 1.7 05/15/2021 2.3 04/17/2021 1.9 INR (no units) Date Value 08/12/2023 1.4 08/05/2023 1.5 07/29/2023 1.3 Hemoglobin (g/dL) Date Value 06/04/2023 10.0 Hematocrit (%) Date Value 06/04/2023 34.9 Platelet Count (k/uL) Date Value 06/04/2023 297 Creatinine (mg/dL) Date Value 06/03/2023 0.81 08/15/2022 0.89 02/21/2022 0.85 03/13/2021 0.80 08/28/2020 0.83 Bilirubin, Total (mg/dL) Date Value 06/03/2023 0.6 03/13/2021 0.5 ALT (U/L) Date Value 06/03/2023 13 03/13/2021 24 AST (U/L) Date Value 06/03/2023 21 03/13/2021 24 Estimated Creatinine Clearance: 68.4 mL/min (based on SCr of 0.81 mg/dL). ALLERGIES No Known Allergies 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: [facility] current us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 Paroxysmal atrial fibrillation (hcc) Anticoagulation Episode Summary Current INR goal: 2.0-3.0 Assessment: INR result of 1.4 is SUBtherapeutic due to: No obvious cause despite recent dose increase. Will send in the new pt ed video and schedule time next week to talk a little more on warfarin re-education. Hopefully this will help in our relationship and his healthcare experience. Plan: Current Warfarin Dosing As of 08/12/2023 Full warfarin instructions: 08/11: 3 mg; Otherwise 2.5 mg every day Called and spoke to patient/caregiver Advised patient to increase total weekly regimen Next lab INR check scheduled on 08/19/2023 Maria Guadalupe verbalizes understanding of the plan. Patient denies need for refills. Coretta Jalloh RPh Clinical Pharmacist, Pharmacy Anticoagulation Clinic Pharmacy Anticoagulation Clinic Pager: [phone]. documented in this encounterC[facility]05-[facility]-2024 Telephone encounter Note * Telephone Encounter - Coretta Jalloh RPh - 08/05/2023 4:41 PM EDT [facility] Clinic Anticoagulation Episode Summary Anticoagulation Care Providers Provider Role Specialty Phone number Stas Mora MD Referring Family Medicine [phone] Roby Flores is a 87 year old year old male patient being evaluated today for a Telemanagement visit. Patient is currently on the following anticoagulant(s) Warfarin. Labs PT INR (no units) Date Value 05/19/2022 1.7 05/15/2021 2.3 04/17/2021 1.9 INR (no units) Date Value 08/05/2023 1.5 07/29/2023 1.3 07/22/2023 1.3 Hemoglobin (g/dL) Date Value 06/04/2023 10.0 Hematocrit (%) Date Value 06/04/2023 34.9 Platelet Count (k/uL) Date Value 06/04/2023 297 Creatinine (mg/dL) Date Value 06/03/2023 0.81 08/15/2022 0.89 02/21/2022 0.85 03/13/2021 0.80 08/28/2020 0.83 Bilirubin, Total (mg/dL) Date Value 06/03/2023 0.6 03/13/2021 0.5 ALT (U/L) Date Value 06/03/2023 13 03/13/2021 24 AST (U/L) Date Value 06/03/2023 21 03/13/2021 24 Estimated Creatinine Clearance: 68.4 mL/min (based on SCr of 0.81 mg/dL). 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 Paroxysmal atrial fibrillation (hcc) Anticoagulation Episode Summary Current INR goal: 2.0-3.0 Assessment: INR result of 1.5 is SUBtherapeutic due to: unknown cause - did not speak to patient Plan: Current Warfarin Dosing As of 08/05/2023 Full warfarin instructions: 2 mg every Tue, Dixie, Sat; 2.5 mg all other days Left voice message On home and cell (for Maria Guadalupe) Advised patient to increase total weekly regimen Next lab INR check scheduled on 08/12/2023 Coretta Jalloh [facility] Clinical Pharmacist, Pharmacy Anticoagulation Clinic Pharmacy Anticoagulation Clinic Pager: [phone]. [facility]05-[facility] Miscellaneous Notes* Telephone Encounter - Coretta Jalloh RPh - 08/05/2023 4:41 PM EDT [facility] Ambulatory Pharmacy Anticoagulation Clinic Anticoagulation Episode Summary Anticoagulation Care Providers Provider Role Specialty Phone number Stas Mora MD Referring Family Medicine [phone] Roby Flores is a 87 year old year old male patient being evaluated today for a Telemanagement visit. Patient is currently on the following anticoagulant(s) Warfarin. Labs PT INR (no units) Date Value 05/19/2022 1.7 05/15/2021 2.3 04/17/2021 1.9 INR (no units) Date Value 08/05/2023 1.5 07/29/2023 1.3 07/22/2023 1.3 Hemoglobin (g/dL) Date Value 06/04/2023 10.0 Hematocrit (%) Date Value 06/04/2023 34.9 Platelet Count (k/uL) Date Value 06/04/2023 297 Creatinine (mg/dL) Date Value 06/03/2023 0.81 08/15/2022 0.89 02/21/2022 0.85 03/13/2021 0.80 08/28/2020 0.83 Bilirubin, Total (mg/dL) Date Value 06/03/2023 0.6 03/13/2021 0.5 ALT (U/L) Date Value 06/03/2023 13 03/13/2021 24 AST (U/L) Date Value 06/03/2023 21 03/13/2021 24 Estimated Creatinine Clearance: 68.4 mL/min (based on SCr of 0.81 mg/dL). 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 Paroxysmal atrial fibrillation (hcc) Anticoagulation Episode Summary Current INR goal: 2.0-3.0 Assessment: INR result of 1.5 is SUBtherapeutic due to: unknown cause - did not speak to patient Plan: Current Warfarin Dosing As of 08/05/2023 Full warfarin instructions: 2 mg every Tue, Dixie, Sat; 2.5 mg all other days Left voice message On home and cell (for Maria Guadalupe) Advised patient to increase total weekly regimen Next lab INR check scheduled on 08/12/2023 Coretta Jalloh RPh Clinical Pharmacist, Pharmacy Anticoagulation Clinic Pharmacy Anticoagulation Clinic Pager: [phone]. documented in this encounterC[facility]05-[facility] Telephone encounter Note * Telephone Encounter - Elena Lopez RPh - 07/29/2023 3:21 PM EDT [facility] Ambulatory Pharm[facility] Anticoagulation Clinic Anticoagulation Episode Summary Anticoagulation Care Providers Provider Role Specialty Phone number Stas Mora MD Referring Family Medicine [phone] Roby Flores is a 87 year old year old male patient being evaluated today for a Telemanagement visit. Patient is currently on the following anticoagulant(s) Warfarin. Labs PT INR (no units) Date Value 05/19/2022 1.7 05/15/2021 2.3 04/17/2021 1.9 INR (no units) Date Value 07/29/2023 1.3 07/22/2023 1.3 07/15/2023 1.5 Hemoglobin (g/dL) Date Value 06/04/2023 10.0 Hematocrit (%) Date Value 06/04/2023 34.9 Platelet Count (k/uL) Date Value 06/04/2023 297 Creatinine (mg/dL) Date Value 06/03/2023 0.81 08/15/2022 0.89 02/21/2022 0.85 03/13/2021 0.80 08/28/2020 0.83 Bilirubin, Total (mg/dL) Date Value 06/03/2023 0.6 03/13/2021 0.5 ALT (U/L) Date Value 06/03/2023 13 03/13/2021 24 AST (U/L) Date Value 06/03/2023 21 03/13/2021 24 Estimated Creatinine Clearance: 68.4 mL/min (based on SCr of 0.81 mg/dL). 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 Paroxysmal atrial fibrillation (hcc) Anticoagulation Episode Summary Current INR goal: 2.0-3.0 Assessment: INR result of 1.3 is SUBtherapeutic due to: No obvious cause Patient denies missed doses, increase in dietary vitamin K (including liver products, protein shakes and nutrient drinks), changes in Prescription/OTC/herbal/ medicines or dietary supplements, and change in tablet appearance Discussed higher INRs at the end of April through mid-May. Caregiver does not recall anything in particular that affected INR during that time either. Caregiver expresses confidence that patient is taking warfarin Plan: Current Warfarin Dosing As of 07/29/2023 Full warfarin instructions: 07/28: 3 mg; Otherwise 2.5 mg every Sun; 2 mg all other days Called and spoke to patient/caregiver Advised patient to increase dose for 1 day and increase total weekly regimen Caregiver agrees to track Vit K intake over the next week to consider any opportunities for more week to week consistency Next lab INR check scheduled on 08/05/2023 Patient and Patient's caregiver verbalizes understanding of the plan. Patient denies need for refills. Elena Lopez [facility] Clinical Pharmacist, Pharmacy Anticoagulation Clinic Pharmacy Anticoagulation Clinic Pager: [phone]. [facility]05-08-[facility] Miscellaneous Notes* Telephone Encounter - Elena Lopez RPh - 07/29/2023 3:21 PM EDT [facility] Ambulatory Pharmacy Anticoagulation Clinic Anticoagulation Episode Summary Anticoagulation Care Providers Provider Role Specialty Phone number Stas Mora MD Referring Family Medicine [phone] Roby Flores is a 87 year old year old male patient being evaluated today for a Telemanagement visit. Patient is currently on the following anticoagulant(s) Warfarin. Labs PT INR (no units) Date Value 05/19/2022 1.7 05/15/2021 2.3 04/17/2021 1.9 INR (no units) Date Value 07/29/2023 1.3 07/22/2023 1.3 07/15/2023 1.5 Hemoglobin (g/dL) Date Value 06/04/2023 10.0 Hematocrit (%) Date Value 06/04/2023 34.9 Platelet Count (k/uL) Date Value 06/04/2023 297 Creatinine (mg/dL) Date Value 06/03/2023 0.81 08/15/2022 0.89 02/21/2022 0.85 03/13/2021 0.80 08/28/2020 0.83 Bilirubin, Total (mg/dL) Date Value 06/03/2023 0.6 03/13/2021 0.5 ALT (U/L) Date Value 06/03/2023 13 03/13/2021 24 AST (U/L) Date Value 06/03/2023 21 03/13/2021 24 Estimated Creatinine Clearance: 68.4 mL/min (based on SCr of 0.81 mg/dL). ALLERGIES No Known Allergies 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: [facility] current us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 Paroxysmal atrial fibrillation (hcc) Anticoagulation Episode Summary Current INR goal: 2.0-3.0 Assessment: INR result of 1.3 is SUBtherapeutic due to: No obvious cause Patient denies missed doses, increase in dietary vitamin K (including liver products, protein shakes and nutrient drinks), changes in Prescription/OTC/herbal/ medicines or dietary supplements, and change in tablet appearance Discussed higher INRs at the end of April through mid-May. Caregiver does not recall anything in particular that affected INR during that time either. Caregiver expresses confidence that patient is taking warfarin Plan: Current Warfarin Dosing As of 07/29/2023 Full warfarin instructions: 07/28: 3 mg; Otherwise 2.5 mg every Sun; 2 mg all other days Called and spoke to patient/caregiver Advised patient to increase dose for 1 day and increase total weekly regimen Caregiver agrees to track Vit K intake over the next week to consider any opportunities for more week to week consistency Next lab INR check scheduled on 08/05/2023 Patient and Patient's caregiver verbalizes understanding of the plan. Patient denies need for refills. Elena Lopez RPh Clinical Pharmacist, Pharmacy Anticoagulation Clinic Pharmacy Anticoagulation Clinic Pager: [phone]. documented in this encounterC[facility] Telephone encounter Note * Telephone Encounter - Coretta Jalloh, [facility] - 07/22/2023 4:40 PM EDT [facility] Ambulatory Pharmacy Anticoagulation Clinic Anticoagulation Episode Summary Anticoagulation Care Providers Provider Role Specialty Phone number Stas Mora MD Referring Family Medicine [phone] Roby Flores is a 87 year old year old male patient being evaluated today for a Telemanagement visit. Patient is currently on the following anticoagulant(s) Warfarin. Labs PT INR (no units) Date Value 05/19/2022 1.7 05/15/2021 2.3 04/17/2021 1.9 INR (no units) Date Value 07/22/2023 1.3 07/15/2023 1.5 07/08/2023 1.3 Hemoglobin (g/dL) Date Value 06/04/2023 10.0 Hematocrit (%) Date Value 06/04/2023 34.9 Platelet Count (k/uL) Date Value 06/04/2023 297 Creatinine (mg/dL) Date Value 06/03/2023 0.81 08/15/2022 0.89 02/21/2022 0.85 03/13/2021 0.80 08/28/2020 0.83 Bilirubin, Total (mg/dL) Date Value 06/03/2023 0.6 03/13/2021 0.5 ALT (U/L) Date Value 06/03/2023 13 03/13/2021 24 AST (U/L) Date Value 06/03/2023 21 03/13/2021 24 Estimated Creatinine Clearance: 68.4 mL/min (based on SCr of 0.81 mg/dL). 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 Plan: Current Warfarin Dosing As of 07/22/2023 Full warfarin instructions: 2 mg every day Called and spoke to patient/caregiver Advised patient to increase dose for 1 day and increase total weekly regimen Next lab INR check scheduled on 07/29/2023 Patient's caregiver, Maria Guadalupe, verbalizes understanding of the plan. Patient denies need for refills. Coretta Jalloh RPh Clinical Pharmacist, Pharmacy Anticoagulation Clinic Pharmacy Anticoagulation Clinic Pager: [phone]. [facility]05-01-20[facility] Miscellaneous Notes* Telephone Encounter - Coretta Jalloh RPh - 07/22/2023 4:40 PM EDT [facility] Ambulatory Pharmacy Anticoagulation Clinic Anticoagulation Episode Summary Anticoagulation Care Providers Provider Role Specialty Phone number Stas Mora MD Referring Family Medicine [phone] Roby Flores is a 87 year old year old male patient being evaluated today for a Telemanagement visit. Patient is currently on the following anticoagulant(s) Warfarin. Labs PT INR (no units) Date Value 05/19/2022 1.7 05/15/2021 2.3 04/17/2021 1.9 INR (no units) Date Value 07/22/2023 1.3 07/15/2023 1.5 07/08/2023 1.3 Hemoglobin (g/dL) Date Value 06/04/2023 10.0 Hematocrit (%) Date Value 06/04/2023 34.9 Platelet Count (k/uL) Date Value 06/04/2023 297 Creatinine (mg/dL) Date Value 06/03/2023 0.81 08/15/2022 0.89 02/21/2022 0.85 03/13/2021 0.80 08/28/2020 0.83 Bilirubin, Total (mg/dL) Date Value 06/03/2023 0.6 03/13/2021 0.5 ALT (U/L) Date Value 06/03/2023 13 03/13/2021 24 AST (U/L) Date Value 06/03/2023 21 03/13/2021 24 Estimated Creatinine Clearance: 68.4 mL/min (based on SCr of 0.81 mg/dL). 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 Plan: Current Warfarin Dosing As of 07/22/2023 Full warfarin instructions: 2 mg every day Called and spoke to patient/caregiver Advised patient to increase dose for 1 day and increase total weekly regimen Next lab INR check scheduled on 07/29/2023 Patient's caregiver, Maria Guadalupe, verbalizes understanding of the plan. Patient denies need for refills. Coretta Jalloh RPh Clinical Pharmacist, Pharmacy Anticoagulation Clinic [facility] Pager: [phone]. documented in this encounterC[facility] Telephone encounter Note * Telephone Encounter - Coretta Jalloh RPh - 07/15/2023 3:18 PM EDT [facility] Anticoagulation Episode Summary Anticoagulation Care Providers Provider Role Specialty Phone number Stas Mora MD Referring Family Medicine [phone] Roby Flores is a 87 year old year old male patient being evaluated today for a Lab INR. Patient is currently on the following anticoagulant(s) Warfarin. Labs PT INR (no units) Date Value 05/19/2022 1.7 05/15/2021 2.3 04/17/2021 1.9 INR (no units) Date Value 07/15/2023 1.5 07/08/2023 1.3 07/01/2023 1.2 Hemoglobin (g/dL) Date Value 06/04/2023 10.0 Hematocrit (%) Date Value 06/04/2023 34.9 Platelet Count (k/uL) Date Value 06/04/2023 297 Creatinine (mg/dL) Date Value 06/03/2023 0.81 08/15/2022 0.89 02/21/2022 0.85 03/13/2021 0.80 08/28/2020 0.83 Bilirubin, Total (mg/dL) Date Value 06/03/2023 0.6 03/13/2021 0.5 ALT (U/L) Date Value 06/03/2023 13 03/13/2021 24 AST (U/L) Date Value 06/03/2023 21 03/13/2021 24 Estimated Creatinine Clearance: 68.4 mL/min (based on SCr of 0.81 mg/dL). 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 Paroxysmal atrial fibrillation (hcc) Anticoagulation Episode Summary Current INR goal: 2.0-3.0 Assessment: INR result of 1.5 is SUBtherapeutic due to: No obvious cause Plan: Current Warfarin Dosing As of 07/15/2023 Full warfarin instructions: 1 mg every Mon, Fri; 2 mg all other days Called and spoke to patient/caregiver Advised patient to increase total weekly regimen Next home INR check scheduled on 07/22/2023 Patient's caregiver verbalizes understanding of the plan. Patient denies need for refills. Coretta Jalloh RPh Clinical Pharmacist, Pharmacy Anticoagulation Clinic Pharmacy An[facility] Pager: [phone]. [facility]04-24-[facility] Miscellaneous Notes* Telephone Encounter - Coretta Jalloh RPh - 07/15/2023 3:18 PM EDT [facility] Ambulatory [facility] Antico[facility] Clinic Anticoagulation Episode Summary Anticoagulation Care Providers Provider Role Specialty Phone number Stas Mora MD Referring Family Medicine [phone] Roby Flores is a 87 year old year old male patient being evaluated today for a Lab INR. Patient is currently on the following anticoagulant(s) Warfarin. Labs PT INR (no units) Date Value 05/19/2022 1.7 05/15/2021 2.3 04/17/2021 1.9 INR (no units) Date Value 07/15/2023 1.5 07/08/2023 1.3 07/01/2023 1.2 Hemoglobin (g/dL) Date Value 06/04/2023 10.0 Hematocrit (%) Date Value 06/04/2023 34.9 Platelet Count (k/uL) Date Value 06/04/2023 297 Creatinine (mg/dL) Date Value 06/03/2023 0.81 08/15/2022 0.89 02/21/2022 0.85 03/13/2021 0.80 08/28/2020 0.83 Bilirubin, Total (mg/dL) Date Value 06/03/2023 0.6 03/13/2021 0.5 ALT (U/L) Date Value 06/03/2023 13 03/13/2021 24 AST (U/L) Date Value 06/03/2023 21 03/13/2021 24 Estimated Creatinine Clearance: 68.4 mL/min (based on SCr of 0.81 mg/dL). 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 Paroxysmal atrial fibrillation (hcc) Anticoagulation Episode Summary Current INR goal: 2.0-3.0 Assessment: INR result of 1.5 is SUBtherapeutic due to: No obvious cause Plan: Current Warfarin Dosing As of 07/15/2023 Full warfarin instructions: 1 mg every Mon, Fri; 2 mg all other days Called and spoke to patient/caregiver Advised patient to increase total weekly regimen Next home INR check scheduled on 07/22/2023 Patient's caregiver verbalizes understanding of the plan. Patient denies need for refills. Coretta Jalloh RPh Clinical Pharmacist, Pharmacy Anticoagulation Clinic Pharmacy Anticoagulation Clinic Pager: [phone]. documented in this encounterCleveland [facility]04-[facility] Miscellaneous Notes* Telephone Encounter - Coretta Jalloh RPh - 07/08/2023 4:36 PM EDT [facility] Anticoagulation Episode Summary Anticoagulation Care Providers Provider Role Specialty Phone number Stas Mora MD Referring Family Medicine [phone] Roby Flores is a 87 year old year old male patient being evaluated today for a Lab INR. Patient is currently on the following anticoagulant(s) Warfarin. Labs PT INR (no units) Date Value 05/19/2022 1.7 05/15/2021 2.3 04/17/2021 1.9 INR (no units) Date Value 07/08/2023 1.3 07/01/2023 1.2 06/24/2023 1.3 Hemoglobin (g/dL) Date Value 06/04/2023 10.0 Hematocrit (%) Date Value 06/04/2023 34.9 Platelet Count (k/uL) Date Value 06/04/2023 297 Creatinine (mg/dL) Date Value 06/03/2023 0.81 08/15/2022 0.89 02/21/2022 0.85 03/13/2021 0.80 08/28/2020 0.83 Bilirubin, Total (mg/dL) Date Value 06/03/2023 0.6 03/13/2021 0.5 ALT (U/L) Date Value 06/03/2023 13 03/13/2021 24 AST (U/L) Date Value 06/03/2023 21 03/13/2021 24 Estimated Creatinine Clearance: 68.4 mL/min (based on SCr of 0.81 mg/dL). ALLERGIES No Known Allergies 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: [facility] current us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 Paroxysmal atrial fibrillation (hcc) Anticoagulation Episode Summary Current INR goal: 2.0-3.0 Assessment: INR result of 1.3 is SUBtherapeutic due to: No obvious cause Maria Guadalupe said he has been having more green vegetables - like green beans. He will try to keep very consistent. It looks like he was taking 17.5mg per week and that was making his INR too high. Now he is up to 11mg per week. Plan: Current Warfarin Dosing As of 07/08/2023 Full warfarin instructions: 2 mg every Mon, Wed, Fri; 1 mg all other days Called and spoke to patient/caregiver Advised patient to increase total weekly regimen Next lab INR check scheduled on 07/14 Maria Guadalupe verbalizes understanding of the plan. Patient requests need for refills. Coretta Jalloh RPh Clinical Pharmacist, Pharmacy Anticoagulation Clinic Pharmacy Anticoagulation Clinic Pager: [phone]. documented in this encounterC[facility]04-10-2024 Miscellaneous Notes* Telephone Encounter - Coretta Jalloh RPh - 07/01/2023 5:20 PM EDT [facility] Ambulatory Pharmacy Anticoagulation Clinic Anticoagulation Episode Summary Anticoagulation Care Providers Provider Role Specialty Phone number Stas Mora MD Referring Family Medicine [phone] Roby Flores is a 87 year old year old male patient being evaluated today for a Lab INR. Patient is currently on the following anticoagulant(s) Warfarin. Labs PT INR (no units) Date Value 05/19/2022 1.7 05/15/2021 2.3 04/17/2021 1.9 INR (no units) Date Value 07/01/2023 1.2 06/24/2023 1.3 06/11/2023 2.2 Hemoglobin (g/dL) Date Value 06/04/2023 10.0 Hematocrit (%) Date Value 06/04/2023 34.9 Platelet Count (k/uL) Date Value 06/04/2023 297 Creatinine (mg/dL) Date Value 06/03/2023 0.81 08/15/2022 0.89 02/21/2022 0.85 03/13/2021 0.80 08/28/2020 0.83 Bilirubin, Total (mg/dL) Date Value 06/03/2023 0.6 03/13/2021 0.5 ALT (U/L) Date Value 06/03/2023 13 03/13/2021 24 AST (U/L) Date Value 06/03/2023 21 03/13/2021 24 Estimated Creatinine Clearance: 68.4 mL/min (based on SCr of 0.81 mg/dL). 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 Paroxysmal atrial fibrillation (hcc) Anticoagulation Episode Summary Current INR goal: 2.0-3.0 Assessment: INR result of 1.2 is SUBtherapeutic due to: No obvious cause and didn't speak to pt. It looks like his dose was changed last time to 2mg ThFri / 1mg all other days. LM asking him to let us know if that is not what was taken or if there was a missed dose or diet change. Plan: Current Warfarin Dosing As of 07/01/2023 Full warfarin instructions: 2 mg every Mon, Wed, Fri; 1 mg all other days Left voice message On cell number. Advised patient to increase total weekly regimen Next lab INR check scheduled on 07/08/2023 Coretta Jalloh [facility] Clinical Pharmacist, Pharmacy Anticoagulation Clinic Pharmacy Anticoagulation Clinic Pager: [phone]. documented in this encounterC[facility]04-04-20[facility] Telephone encounter Note * Telephone Encounter - Adrian HuangAcademizeElana Berry - 06/25/2023 5:14 PM EDT Images from the original note were not included. Per response from PCP: Stas Mora MD routed conversation to You 27 minutes ago (4:46 PM) Stas Mora MD 27 minutes ago (4:46 PM) It looks like my office became involved because the on-call doctor was called with his elevated INR. I would prefer he stay with the pharmacy for his routine monitoring. Stas Mora MD PAC to continue to monitor patient's INRs/dose warfarin. Next INR expected 4/5 and remains on Remote TM list. Elana Campbell (Academize) [facility]04-04-2024 Miscellaneous Notes* Telephone Encounter - Adrian HuangFried Cake Maker)Elana - 06/25/2023 5:14 PM EDT Images from the original note were not included. Per response from PCP: Stas Mora MD routed conversation to You 27 minutes ago (4:46 PM) Stas Mora MD 27 minutes ago (4:46 PM) It looks like my office became involved because the on-call doctor was called with his elevated INR. I would prefer he stay with the pharmacy for his routine monitoring. Stas Mora MD PAC to continue to monitor patient's INRs/dose warfarin. Next INR expected 4/5 and remains on Remote TM list. Elana Campbell (Academize) * Telephone Encounter - Stas Mora MD - 06/25/2023 4:44 PM EDT It looks like my office became involved because the on-call doctor was called with his elevated INR. I would prefer he stay with the pharmacy for his routine monitoring. Stas Mora MD * Telephone Encounter - Adrian (Fried Cake Maker)Elana - 06/25/2023 4:03 PM EDT Pharm Phone Call follow up. PPC note: 06/24 did PCP advise who is managing the patient? RN placed this note. We will need to reach out to MD office as patient will have next INR 4/5 to determine who will manage results PPC Patient is to have INR checked tomorrow (4/5). Unclear who is managing results. Will route to provider for input. Dr. Mora: It appears your office has been managing patient's INRs/warfarin. If you plan to continue managing patients results, PAC will DC patient from our service at this time Please advise. Elana Campbell CPhT (Process Camera Operator) Pharmacy Anticoagulation Clinic documented in this encounterC[facility]04-04-20[facility] Telephone encounter Note * Telephone Encounter - Stas Mora MD - 06/25/2023 4:44 PM EDT It looks like my office became involved because the on-call doctor was called with his elevated INR. I would prefer he stay with the pharmacy for his routine monitoring. Stas Mora MD [facility]04-04-20[facility] Telephone encounter Note* Telephone Encounter - Adrian HuangFried Cake MakerElana Berry - 06/25/2023 4:03 PM EDT Pharm Phone Call follow up. PPC note: 06/24 did PCP advise who is managing the patient? RN placed this note. We will need to reach out to MD office as patient will have next INR 4/5 to determine who will manage results PPC Patient is to have INR checked tomorrow (4/5). Unclear who is managing results. Will route to provider for input. Dr. Mora: It appears your office has been managing patient's INRs/warfarin. If you plan to continue managing patients results, PAC will DC patient from our service at this time Please advise. Elana Campbell CPhT (Process Camera Operator) Pharmacy Anticoagulation Clinic [facility]04-03-2024 Miscellaneous Notes* Telephone Encounter - Jason Easton MD - 06/24/2023 4:46 PM EDT Order approved. Take as directed in earlier message. * Telephone Encounter - Keke Tsang MA - 06/24/2023 4:35 PM EDT Patient and spouse notified. Pt reports that he cannot find 1 mg warfarin bottle today at all. Requesting new RX be sent to pharmacy today. Order pended. Keke Tsang MA * Telephone Encounter - Jason Easton MD - 06/24/2023 4:26 PM EDT INR low. Increase coumadin to 2 mg Th, Thu and 1 mg all other days. Recheck in 1 week. * Telephone Encounter - Keke Tsang MA - 06/24/2023 4:10 PM EDT INR Date Value Ref Range Status 06/24/2023 1.3 0.9 - 1.3 Final Comment: Vitamin K Antagonist (VKA) Therapeutic Range: INR 2 to 3 (Target INR of 2.5) Note: For patients treated with VKA drugs, such as warfarin, the [place] [employer] 2012 Guideline recommends [...] Chest 2012, 141:7S-47S Avel RA, et al. [facility] 2017, 70: 252-289 Confirmed that pt is taking 1 mg daily. No changes to diet, medications, missed or extra doses, etc. Keke Tsang MA documented in this encounterCleveland [facility]03-22-2024 Miscellaneous Notes* Telephone Encounter - Marta Palacio MA - 06/12/2023 11:21 AM EDT Gabby notified and voiced understanding. Tracker and med list updated. Marta Palacio MA * Telephone Encounter - Luz Elena Giraldo APRN.CNP - 06/12/2023 9:39 AM EDT Continue current Coumadin dose, recheck again in 2 weeks. Luz Elena Giraldo APRN.CNP * Telephone Encounter - Rosie Cruz Ma - 06/11/2023 4:24 PM EDT Last INR: PT INR 2.2 06/11/2023 Current dose of coumadin is: 1 mg daily. Last date of dose change: 06/08/23. Previous INR (date and result): 3.2 on 06/08/23 Additional Clinical Information or narrative: no Rosie Cruz Ma documented in this encounterCleveland [facility]03-18-2024 Miscellaneous Notes* Telephone Encounter - Keke Ferraro PA-C - 06/08/2023 5:20 PM EDT Rx sent per nurse request. Keke Ferraro PA-C * Telephone Encounter - Hortencia Silver LPN - 06/08/2023 5:[address] Reagan Coumadin 1 mg daily recheck or Thursday. Pt. informed. * Telephone Encounter - Jonathan Reagan DO - 06/08/2023 5:08 PM EDT What was his previous dosing for Coumadin? Jonathan Reagan DO * Telephone Encounter - Marta Palacio MA - 06/08/2023 3:00 PM EDT Last INR: PT INR 3.2 06/08/2023 Current dose of coumadin is: Pt has been holding Coumadin over the weekend. Last date of dose change: 06/05/23. Previous INR (date and result): 06/05/23 INR: 6.9 Additional Clinical Information or narrative: no documented in this encounterCleveland [facility]03-15-2024 Miscellaneous Notes* Telephone Encounter - Halina Alfaro LPN - 06/05/2023 10:17 AM EDT Patient daughter notified of results, verbalizes understanding of instructions. Pt is to hold coumadin Sat and Sun. and Get PT/INR on Thursday. Halina Alfaro LPN * Telephone Encounter - Oliva Westbrook LPN - 06/05/2023 10:05 AM EDT Phoned Maria Guadalupe oliveros was going over notes from Dr Bell my chart note, patient has already taken his coumadin dose 2.5 mg today. so now what instructions does he go by? Notes from Dr Bell: If you are having any bleeding issues, you need to go to the closest ER to be evaluated and treated. If no bleeding issues: You need to hold the coumadin today and tomorrow Coumadin 1.25 mg Thursday and Thursday. Get INR on Thursday * Telephone Encounter - Oliva Westbrook LPN - 06/05/2023 9:51 AM EDT Maria Guadalupe Salguero returned call and went over notes below from Jenna Fitzpatrick SHELL COREMAKER. She said no change in his diet, not taking any antibiotics, has not taken double dose. Patient currently taking coumadin2.5 mg daily. * Telephone Encounter - Jenna Fitzpatrick APRN.CNP - 06/05/2023 9:11 AM EDT Attempted to call the patient and daughter to discuss critical lab value that was received yesterday. On-call provider tried calling the patient last night several times without answer. I attempted to call the patient again this morning and his daughter without answer. INR was 6.9. Jenna Fitzpatrick APRN.SHEMAR documented in this encounterCleveland [facility]03-15-2024 Miscellaneous Notes* Telephone Encounter - Marta Palacio MA - 06/05/2023 10:15 AM EDT See phone note 06/05/23 with Jenna Fitzpatrick. Marta Palacio MA * Telephone Encounter - Jasmin Bell MD - 06/04/2023 7:59 PM EDT Been trying to call patient at numbers give and goes straight to . Sending MyChart message in case will see that sooner. After multiple attempts, I called [facility]. They cannot call the patient but if the patient calls them, they will conference call with me. documented in this encounterCleveland [facility]03-15-2024 Miscellaneous Notes* Telephone Encounter - Marta Palacio MA - 06/05/2023 10:06 AM EDT See other phone note sent to Jenna Fitzpatrick. Mrata Palacio MA * Telephone Encounter - Jasmin Bell MD - 06/04/2023 7:48 PM EDT Paged about critical lab value. INR that was drawn 1:28 this afternoon high at 6.9. Reviewed records. INR was 3.9 yesterday--patient instructed to lower dose from 3.75 mg Wed with 2.5 mg daily to 1.25 mg Wed and 2.5 mg daily. Went back a couple months and noted that INR has not been stable since at least February. Got over 8 when dose was 3.75 Fridays with 2.5 mg rest of the week. Doses titrated down and some doses held for a few weeks then when got too low, dose titrated back up. I have left multiple voicemail messages on his mobile as well as Maria Guadalupe Salguero's phone. Also left a message on conrad Rios's mobile. Sent a MyChart message too. Called [facility] and the will conference call me if patient calls them. documented in this encounterCleveland Clinic [facility]03-14-2024 Miscellaneous Notes* Telephone Encounter - Hortencia Winston, RN - 06/04/2023 8:[address] Bell has left messages for the patient to call back regarding a critical lab. documented in this encounterCleveland Clinic [facility]03-14-2024 Miscellaneous Notes* Telephone Encounter - Minda Solorzano RN - 06/04/2023 12:51 PM EDT Spoke with patient's significant other, Maria Guadalupe. Given message from provider's office. She verbalizesunderstanding. Minda Solorzano RN * Telephone Encounter - Halina Alfaro LPN - 06/04/2023 12:35 PM EDT TC to pt. LM to call office, ask for triage nurse to get results. Halina Alfaro LPN * Telephone Encounter - Jenna Fitzpatrick APRN.CNP - 06/04/2023 11:37 AM EDT Can you please call the patient and let him know that I reviewed his lab results. Cholesterol was normal. I know his INR has been elevated. CBC lab test shows some signs of possibleblood loss. I would like him to repeat labs in 1 week as well as complete a stool test to check forany blood. He can stop at the lab to collect his stool supplies. Please let me know if he has any questions. Thank you. Jenna Fitzpatrick APRN.SHEMAR documented in this encounterCleveland [facility]03-13-2024 Miscellaneous Notes* Telephone Encounter - Coretta Jalloh, DAVID - 06/03/2023 3:22 PM EDT [facility] Antico[facility] Clinic Anticoagulation Episode Summary Anticoagulation Care Providers Provider Role Specialty Phone number Stas Mora MD Referring Family Medicine [phone] Roby Flores is a 87 year old year old male patient being evaluated today for a Lab INR. Patient is currently on the following anticoagulant(s) Warfarin. Labs PT INR (no units) Date Value 05/19/2022 1.7 05/15/2021 2.3 04/17/2021 1.9 INR (no units) Date Value 06/03/2023 3.9 05/27/2023 4.8 05/20/2023 2.3 Hemoglobin (g/dL) Date Value 06/03/2023 9.8 Hematocrit (%) Date Value 06/03/2023 33.7 Platelet Count (k/uL) Date Value 06/03/2023 284 Creatinine (mg/dL) Date Value 08/15/2022 0.89 02/21/2022 0.85 12/06/2021 0.80 03/13/2021 0.80 08/28/2020 0.83 Bilirubin, Total (mg/dL) Date Value 08/15/2022 0.9 03/13/2021 0.5 ALT (U/L) Date Value 08/15/2022 14 03/13/2021 24 AST (U/L) Date Value 08/15/2022 23 03/13/2021 24 CrCl cannot be calculated (Patient's most recent lab result is older than the maximum 180 days allowed.). 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 This similar dose was working before. Plan: Current Warfarin Dosing As of 06/03/2023 Full warfarin instructions: 1.25 mg every Wed; 2.5 mg all other days Called and spoke to patient/caregiver Advised patient to decrease dose for 1 day only then resume weekly regimen Next lab INR check scheduled on 06/10/2023 Patient verbalizes understanding of the plan. Patient denies need for refills. Coretta Jalloh RPh Clinical Pharmacist, Pharmacy Anticoagulation Clinic Pharmacy Anticoagulation Clinic Pager: [phone]. documented in this encounterCleveland Clinic [facility]03-11-2024 History of Present illness Narrative* Stas Mora MD - 06/01/2023 3:20 PM EDT Chief Complaint Patient presents with: F/U 3 Month HPI Roby Flores is a 87 year old male who presents here today for 3 month follow up. Pt unclear about medications; states that for the past month he has stopped all his medications other than the coumadin. HM: Depression screening; denies feeling depressed or hopeless. Depression screening tool completedand reviewed. Based on score and interview, patient is not at risk for depression. Screening tool discussed with patient, and I recommended no further intervention at this time Still some speech difficulties and right side weakness from probable CVA . Uses cane to get around.No recent falls. Has an advanced directive. Denies any bowel, Gi, or urinary issues. Taking Flomax 0.4 mg daily. HTN: Taking Lisinopril 10 mg daily. NO chest pains, dizziness, or SOB. Lipid: Tolerating Lipitor 40 mg daily and ASA 81 mg daily. INR and coumadin dosage managed by Pharmacists. Past medical history, appointments, medications, allergies reviewed. Previous Medical History PAST MEDICAL HISTORY Diagnosis Date Coronary atherosclerosis of unspecified type of vessel, pauma or graft Coronary artery disease Other and unspecified hyperlipidemia Unspecified essential hypertension Essential hypertension Previous Surgical History PAST SURGICAL HISTORY Procedure Laterality Date APPENDECTOMY PERC TRANSL COR ANGIO 2005 last time Percutaneous Transluminal Coronary Angio Status 3 procedures Family History FAMILY HISTORY Problem Relation Age of Onset Arthritis Mother Alcohol/Drug Father Stroke Father Cancer Brother 50 Stomach cancer Patient Allergies ALLERGIES No Known Allergies Current Medications Current Outpatient Medications on File Prior to Visit Medication Sig tamsulosin (FLOMAX) 0.4 mg Take 1 capsule by mouth daily at bedtime. warfarin (COUMADIN) 2.5 mg tablet Take 2.5 mg everyday except 3.75 mg on Fridays atorvastatin (LIPITOR) 40 mg tablet Take 1 tablet by mouth daily at bedtime. aspirin 81 mg chewable tablet Take 1 tablet by mouth once daily. lisinopril (ZESTRIL) 10 mg tablet Take 1 tablet by mouth once daily. No current facility-administered medications on file prior to visit. Social History Social History Tobacco Use Smoking status: Former Smokeless tobacco: Never Tobacco comments: 30 yaers ago Substance Use Topics Alcohol use: No Drug use: No EXAM: BP 140/90 Pulse 82 Resp 16 Wt 75.8 kg (167 lb) SpO2 100% BMI 23.29 kg/m General Appearance: Well appearing, alert, in no acute distress, well-hydrated, well nourished.. Lungs: Lungs clear to auscultation. No wheezing, rhonchi, rales.. Heart: RRR without murmur, gallop, or rubs. No ectopy. Health Maintenance List RSV Vaccine(1 - 1-dose 60+ series) Never done Advance Directive Discussion due on 03/23/2023 Depression Assessment due on 03/23/2023 LDL Cholesterol due on 08/16/2023 Diabetes Screening due on 08/15/2025 DTaP,Tdap,Td Vaccine(2 - Td or Tdap) due on 02/27/2031 Influenza Vaccine Completed Shingrix Vaccine Completed Covid-19 Vaccine Completed Pneumococcal Vaccine: 65+ Completed Data reviewed none ASSESSMENT/PLAN: 1. Essential hypertension, benign - ICD9: 401.1, ICD10: I10 (primary diagnosis) - Controlled - Continue current medications - Recommend home blood pressure monitoring, to bring results to next visit - Encouraged sodium restriction, DASH or Mediterranean diet - COMP METABOLIC PANEL - LIPID PANEL BASIC - CBC 2. Paroxysmal atrial fibrillation (HCC) - ICD9: 427.31, ICD10: I48.0 - COMP METABOLIC PANEL - LIPID PANEL BASIC - CBC 3. Atherosclerosis 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, unspecified vessel or lesion type, unspecified whether pauma or transplanted heart - ICD9: 414.00, ICD10: I25.10 Stable 4. Hyperlipidemia, unspecified hyperlipidemia type - ICD9: 272.4, ICD10: E78.5 Check labs - COMP METABOLIC PANEL - LIPID PANEL BASIC 5. History of stroke with residual effects - ICD9: 438.9, ICD10: I69.30 Stable 6. Speech disturbance, unspecified type - ICD9: 784.59, ICD10: R47.9 Stable Labs ordered; notify of results Follow up in 6 months I agree with the Chief Complaint, ROS, and Past Histories independently gathered by the clinical patient support tech and the remaining scribed note accurately describes my personal service to the patient. Medical Decision Making: Problems: Moderate: 2+ stable chronic illnesses Data: Unique test(s) ordered: 3+ Risk: Moderate: Drug management Medical Decision Making Level: 4 - Moderate Stas Mora MD The documentation for this note was completed by Marta Palacio MA acting as scribe for Stas Mora MD. June 01, 2023 3:10 PM. Marta Palacio MA documented in this encounterC[facility]03-[facility]24 Miscellaneous Notes* Telephone Encounter - Coretta Jalloh, Formerly [facility] - 05/27/2023 2:23 PM EST [facility] Anticoagulation Episode Summary Anticoagulation Care Providers Provider Role Specialty Phone number Stas Mora MD Referring Family Medicine [phone] Roby Flores is a 87 year old year old male patient being evaluated today for a [facility] Anticoagulation Episode Summary Anticoagulation Care Providers Provider Role Specialty Phone number Stas Mora MD Referring Family Medicine [phone] Roby Flores is a 87 year old year old male patient being evaluated today for a Telemanagement visit. Patient is currently on the following anticoagulant(s) Warfarin. Labs PT INR (no units) Date Value 05/19/2022 1.7 05/15/2021 2.3 04/17/2021 1.9 INR (no units) Date Value 05/27/2023 4.8 05/20/2023 2.3 05/13/2023 1.4 Hemoglobin (g/dL) Date Value 08/15/2022 12.6 Hematocrit (%) Date Value 08/15/2022 40.0 Platelet Count (k/uL) Date Value 08/15/2022 229 Creatinine (mg/dL) Date Value 08/15/2022 0.89 02/21/2022 0.85 12/06/2021 0.80 03/13/2021 0.80 08/28/2020 0.83 Bilirubin, Total (mg/dL) Date Value 08/15/2022 0.9 03/13/2021 0.5 ALT (U/L) Date Value 08/15/2022 14 03/13/2021 24 AST (U/L) Date Value 08/15/2022 23 03/13/2021 24 CrCl cannot be calculated (Patient's most recent lab result is older than the maximum 180 days allowed.). ALLERGIES No Known Allergies 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: [facility] current us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 Paroxysmal atrial fibrillation (hcc) Anticoagulation Episode Summary Current INR goal: 2.0-3.0 Assessment: INR result of 4.8 is SUPRAtherapeutic due to: No obvious cause Plan: Current Warfarin Dosing As of 05/27/2023 Full warfarin instructions: 05/26: Hold; Otherwise 3.75 mg every Wed; 2.5 mg all other days Called and spoke to patient/caregiver Advised patient to hold 1 dose then continue current regimen Next lab INR check scheduled on 06/02 Maria Guadalupe verbalizes understanding of the plan. Patient denies need for refills. Coretta Jalloh RPh Clinical Pharmacist, Pharmacy Anticoagulation Clinic Pharmacy [facility] Pager: [phone]. documented in this encounterCleveland [facility]02-28-2024 Miscellaneous Notes* Telephone Encounter - Coretta Jalloh RPh - 05/20/2023 2:36 PM EST [facility] Amb[facility] Clinic Anticoagulation Episode Summary Anticoagulation Care Providers Provider Role Specialty Phone number Stas Mora MD Referring Family Medicine [phone] Roby Flores is a 87 year old year old male patient being evaluated today for a Telemanagement visit. Patient is currently on the following anticoagulant(s) Warfarin. Labs INR (no units) Date Value 05/20/2023 2.3 05/13/2023 1.4 05/06/2023 1.3 Hemoglobin (g/dL) Date Value 08/15/2022 12.6 Hematocrit (%) Date Value 08/15/2022 40.0 Platelet Count (k/uL) Date Value 08/15/2022 229 Creatinine (mg/dL) Date Value 08/15/2022 0.89 02/21/2022 0.85 12/06/2021 0.80 03/13/2021 0.80 08/28/2020 0.83 Bilirubin, Total (mg/dL) Date Value 08/15/2022 0.9 03/13/2021 0.5 ALT (U/L) Date Value 08/15/2022 14 03/13/2021 24 AST (U/L) Date Value 08/15/2022 23 03/13/2021 24 CrCl cannot be calculated (Patient's most recent lab result is older than the maximum 180 days allowed.). ALLERGIES No Known Allergies 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: [facility] current us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 Paroxysmal atrial fibrillation (hcc) Anticoagulation Episode Summary Current INR goal: 2.0-3.0 Assessment: INR result of 2.3 is therapeutic following recent dose increase. We have been slowing titration his dose back up for some time. Plan: Current Warfarin Dosing As of 05/20/2023 Full warfarin instructions: 3.75 mg every Wed; 2.5 mg all other days Left voice message Advised patient to continue current weekly dose as noted above Next lab INR check scheduled on 05/27/2023 Coretta Jalloh RPh Clinical Pharmacist, Pharmacy Anticoagulation Clinic Pharmacy Antico[facility] Pager: [phone]. documented in this encounterC[facility]02-21-2024 Miscellaneous Notes* Telephone Encounter - Senia Phillips RPh - 05/13/2023 4:06 PM EST [facility] Clinic Anticoagulation Episode Summary Anticoagulation Care Providers Provider Role Specialty Phone number Stas Mora MD Referring Family Medicine [phone] Roby Flores is a 87 year old year old male patient being evaluated today for a Telemanagement visit. Patient is currently on the following anticoagulant(s) Warfarin. Labs PT INR (no units) Date Value 05/19/2022 1.7 05/15/2021 2.3 04/17/2021 1.9 INR (no units) Date Value 05/13/2023 1.4 05/06/2023 1.3 04/29/2023 1.3 Hemoglobin (g/dL) Date Value 08/15/2022 12.6 Hematocrit (%) Date Value 08/15/2022 40.0 Platelet Count (k/uL) Date Value 08/15/2022 229 Creatinine (mg/dL) Date Value 08/15/2022 0.89 02/21/2022 0.85 12/06/2021 0.80 03/13/2021 0.80 08/28/2020 0.83 Bilirubin, Total (mg/dL) Date Value 08/15/2022 0.9 03/13/2021 0.5 ALT (U/L) Date Value 08/15/2022 14 03/13/2021 24 AST (U/L) Date Value 08/15/2022 23 03/13/2021 24 CrCl cannot be calculated (Patient's most recent lab result is older than the maximum 180 days allowed.). ALLERGIES No Known Allergies 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: [facility] current us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 Paroxysmal atrial fibrillation (hcc) Anticoagulation Episode Summary Current INR goal: 2.0-3.0 Assessment: INR result of 1.4 is SUBtherapeutic due to: No obvious cause Patient denies missed doses, recent increase in vitamin K intake, and other potential causes of subtherapeutic INR such as: liver, green tea, nutritional supplements including V8, recent addition of multivitamin, meal replacement drinks/shakes (Boost, Ensure, Glucerna, Slim-Fast, Atkins, etc.). Plan: Current Warfarin Dosing As of 05/13/2023 Full warfarin instructions: 05/13: 3.75 mg; Otherwise 2.5 mg every day Called and spoke to patient/caregiver Advised patient to increase dose for 1 day and increase total weekly regimen Next lab INR check scheduled on 05/20/2023 Patient's caregiver verbalizes understanding of the plan. Patient denies need for refills. Senia Phillips RPh Clinical Pharmacist, Pharmacy Anticoagulation Clinic Pharmacy Anticoagulation Clinic Pager: [phone]. documented in this encounterC[facility]02-14-2024 Miscellaneous Notes* Telephone Encounter - Coretta Jalloh, Former[facility] - 05/06/2023 3:14 PM EST [facility] Ambulatory [facility] Anticoagulation Clinic Anticoagulation Episode Summary Anticoagulation Care Providers Provider Role Specialty Phone number Stas Mora MD Referring Family Medicine [phone] Roby Flores is a 87 year old year old male patient being evaluated today for a Lab INR. Patient is currently on the following anticoagulant(s) Warfarin. Labs PT INR (no units) Date Value 05/19/2022 1.7 05/15/2021 2.3 04/17/2021 1.9 INR (no units) Date Value 05/06/2023 1.3 04/29/2023 1.3 04/22/2023 1.4 Hemoglobin (g/dL) Date Value 08/15/2022 12.6 Hematocrit (%) Date Value 08/15/2022 40.0 Platelet Count (k/uL) Date Value 08/15/2022 229 Creatinine (mg/dL) Date Value 08/15/2022 0.89 02/21/2022 0.85 12/06/2021 0.80 03/13/2021 0.80 08/28/2020 0.83 Bilirubin, Total (mg/dL) Date Value 08/15/2022 0.9 03/13/2021 0.5 ALT (U/L) Date Value 08/15/2022 14 03/13/2021 24 AST (U/L) Date Value 08/15/2022 23 03/13/2021 24 CrCl cannot be calculated (Patient's most recent lab result is older than the maximum 180 days allowed.). ALLERGIES No Known Allergies 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: [facility] current us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 Paroxysmal atrial fibrillation (hcc) Anticoagulation Episode Summary Current INR goal: 2.0-3.0 Assessment: INR result of 1.3 is SUBtherapeutic due to: unknown cause - did not speak to patient I wasn't sure if patient was a slower responder to doses and was being cautious as his INR julio very high in the past. Plan: Current Warfarin Dosing As of 05/06/2023 Full warfarin instructions: 05/06: 3.75 mg; Otherwise 1.25 mg every Sun; 2.5 mg all other days; Starting 05/07/2023 Left voice message Advised patient to increase dose for 1 day and increase total weekly regimen Next lab INR check scheduled on 05/13/2023 JENNIFER for Diana. Coretta Jalloh RPh Clinical Pharmacist, Pharmacy Anticoagulation Clinic Pharmacy Anticoagulation Clinic Pager: [phone]. documented in this encounterC[facility]02-07-2024 Miscellaneous Notes* Telephone Encounter - Coretta Jalloh RPh - 04/29/2023 4:00 PM EST [facility] Ambulatory [facility] Anticoagulation Clinic Anticoagulation Episode Summary Anticoagulation Care Providers Provider Role Specialty Phone number Stas Mora MD Referring Family Medicine [phone] Roby Flores is a 87 year old year old male patient being evaluated today for a Lab INR. Patient is currently on the following anticoagulant(s) Warfarin. Labs PT INR (no units) Date Value 05/19/2022 1.7 05/15/2021 2.3 04/17/2021 1.9 INR (no units) Date Value 04/29/2023 1.3 04/22/2023 1.4 04/15/2023 1.7 Hemoglobin (g/dL) Date Value 08/15/2022 12.6 Hematocrit (%) Date Value 08/15/2022 40.0 Platelet Count (k/uL) Date Value 08/15/2022 229 Creatinine (mg/dL) Date Value 08/15/2022 0.89 02/21/2022 0.85 12/06/2021 0.80 03/13/2021 0.80 08/28/2020 0.83 Bilirubin, Total (mg/dL) Date Value 08/15/2022 0.9 03/13/2021 0.5 ALT (U/L) Date Value 08/15/2022 14 03/13/2021 24 AST (U/L) Date Value 08/15/2022 23 03/13/2021 24 CrCl cannot be calculated (Patient's most recent lab result is older than the maximum 180 days allowed.). ALLERGIES No Known Allergies 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: [facility] current us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 Paroxysmal atrial fibrillation (hcc) Anticoagulation Episode Summary Current INR goal: 2.0-3.0 Assessment: INR result of 1.3 is SUBtherapeutic due to: unknown cause - did not speak to patient Despite increased warfarin dose. INR remains very labile. Plan: Current Warfarin Dosing As of 04/29/2023 Full warfarin instructions: 1.25 mg every Sun, [place]; 2.5 mg all other days Left voice message - LM on his cell number. Advised patient to increase dose for 1 day only then resume weekly regimen Unsure if he needs a further dose increase. Perhaps he is a late responder on the frequent dose adjustments? LM to call us to discuss any other reason for the low INR again. Next lab INR check scheduled on 05/06/2023 Coretta Jalloh RPh Clinical Pharmacist, Pharmacy Anticoagulation Clinic Pharmacy Anticoagulation Clinic Pager: [phone]. documented in this encounterCleveland [facility]12-01-2023 Miscellaneous Notes* Telephone Encounter - Elise Paredes [facility] - 02/20/2023 3:37 PM EST [facility] Ambulatory Pharmacy Anticoagulation Clinic Anticoagulation Episode Summary Anticoagulation Care Providers Provider Role Specialty Phone number Stas Mora MD Referring Family Medicine [phone] Roby Flores is a 87 year old year old male patient being evaluated today for a Lab INR. Patient is currently on the following anticoagulant(s) Warfarin. Labs PT INR (no units) Date Value 05/19/2022 1.7 05/15/2021 2.3 04/17/2021 1.9 INR (no units) Date Value 02/20/2023 2.9 02/13/2023 1.6 02/06/2023 1.9 Hemoglobin (g/dL) Date Value 08/15/2022 12.6 Hematocrit (%) Date Value 08/15/2022 40.0 Platelet Count (k/uL) Date Value 08/15/2022 229 Creatinine (mg/dL) Date Value 08/15/2022 0.89 02/21/2022 0.85 12/06/2021 0.80 03/13/2021 0.80 08/28/2020 0.83 Bilirubin, Total (mg/dL) Date Value 08/15/2022 0.9 03/13/2021 0.5 ALT (U/L) Date Value 08/15/2022 14 03/13/2021 24 AST (U/L) Date Value 08/15/2022 23 03/13/2021 24 CrCl cannot be calculated (Patient's most recent lab result is older than the maximum 180 days allowed.). ALLERGIES No Known Allergies 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: [facility] current us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 Paroxysmal atrial fibrillation (hcc) Anticoagulation Episode Summary Current INR goal: 2.0-3.0 Assessment: INR result of 2.9 is therapeutic Plan: Current Warfarin Dosing As of 02/20/2023 Full warfarin instructions: 3.75 mg every Fri; 2.5 mg all other days Called and spoke to patient/caregiver - Maria Guadalupe Advised patient to increase total weekly regimen Next lab INR check scheduled on 03/06/2023 Patient's caregiver verbalizes understanding of the plan. Patient denies need for refills. Elise Paredes [facility] Clinical Pharmacist, Pharmacy Anticoagulation Clinic Pharmacy Anticoagulation Clinic Pager: [phone]. documented in this encounterCleveland [facility]11-28-2023 Miscellaneous Notes* Telephone Encounter - Franca Cohen LPN - 02/17/2023 9:59 AM EST Maria Guadalupe called back and message below given. She reports he is a little better. She will discuss withpt message below and decide on what they want to do. Franca Cohen LPN * Telephone Encounter - Marta Palacio Ma - 02/17/2023 9:40 AM EST Message left for pt to call back for results. 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 Unless he is much better today I would recommend return to ER; I think he would benefit from admission for further evaluation and therapy evaluation Stas Mora MD documented in this encounterCleveland Clinic [facility]11-28-2023 History of Present illness Narrative* Janelle Rivera RT(R) - 02/17/2023 7:30 AM EST Radiology Service Progress Note PATIENT NAME: Roby Flores DATE OF SERVICE: February 17, 2023 TIME: 7:43 AM PATIENT IDENTITY VERIFICATION COMPLETED USING TWO (2) IDENTIFIERS: Name and Date of confirmedby patient verbally. FALL SCREENING: Has the patient had 2 falls in the last year or 1 fall with injury or currently using an Ambulatory Assistive Device (Walker, Cane, Wheelchair, Crutches, etc.)? Yes, Patient High Riskfor Falls What interventions were put in place to prevent falls during this visit? Instructed Patient to Callfor Help if Needed, Offered Assistance with Transfers/Clothing, Instructed Patient to Remain Seated(Not on Exam Table) Until Exam, and Increased Observations by Caregivers PATIENT GENDER DATA: Male PATIENT RELEVANT IMPLANT DATA REVIEWED: Yes RADIOLOGY DEPARTMENT: MR; Exam(s) Completed: Head: Routine Brain PERIPHERAL IV DATA: Not applicable SIGNED BY: RT Nancy(R) February 17, 2023 7:43 AM documented in this encounterCleveland Clinic [facility]11-27-2023 History of Present illness Narrative* Stas Mora MD - 02/16/2023 2:00 PM EST Chief Complaint Patient presents with: ED Follow-up HPI Roby Flores is a 87 year old male who presents here today for ER Follow Up.. Pt went to the [facility] ER on 02/10/23 with c/o fatigue, weakness, trouble finding words. He was given IV fluids and at time of discharge was feeling better and felt he could go home. He has been feeling very weak in the legs, difficulty moving the legs on his own, requires help from . Uses a walkerto ambulate at home. Has had 2 falls in the last 4 days. Pt has been having trouble with his legs for some time but it is getting worse. Has remained confused, had urinary and bowel incontinence yesterday. Feels a little better today. Pt had INR checked on 02/13/23 with result of 1.6. Pharmacist manages INR and coumadin, message left instructing pt to increase does 1 day only to 5 mg then resume weekly regimen of 2.5 mg daily. Recheck in 1 week. Below copied from [employer]: Chief Complaint: Fatigue Informant: patient Onset/Context/Timing Onset: Yesterday Context: Gradual Onset Timing: Continuous Quality: Weakness Location: Generalized Worsened by: Nothing Relieved by: Nothing Narrative Narrative: Presents with generalized weakness that has been getting worse since yesterday morning. Patient states it is gradually getting worse. Patient states he feels weak all over. Patient admits to a mild sore throat and some neck pain. Patient denies any chest pain or shortness of breath. Patient denies any cough. Patient denies any nausea or vomiting. Patient denies any fevers or chills. Patient denies any urinary complaints. Patient denies any headaches. [facility] Narrative Medical decision making narrative: Differential diagnosis includes cardiac dysrhythmia, cardiac ischemia, pneumonia, pneumothorax, urinary tract infection, pyelonephritis, viral illness, dehydration, electrolyte abnormality, and gastroenteritis. EKG will be obtained to assess for cardiac dysrhythmia and cardiac ischemia. Chest x-raywill be obtained to assess for pneumonia and pneumothorax. CBC will be obtained to assess for leukocytosis and anemia. Basic metabolic profile will be obtained to assess for electrolyte abnormality and renal function. High-sensitivity troponin will be obtained to assess for cardiac ischemia. PT with INR and PTT will be obtained to assess for coagulopathy. Lab Data Attestation: I reviewed the patient's lab results. Lab results narrative: CBC was reviewed. There is a mild anemia with a hemoglobin of 10.6 and hematocrit 36.2. Basic metabolic profile was reviewed. BUN was 19. Chloride was slightly elevated at 108. Anion gap was normal. Glucose was normal. PT with INR and PTT were reviewed. Pro time was 15.6 and INR is 1.2. PTT was normal at 26.3. High-sensitivity troponin was reviewed and was normal at 16. Urinalysis was reviewed. There is no evidence of urinary tract infection or hematuria. COVID-19 rapid antigen was reviewed andwas negative. Influenza A and influenza B antigens were reviewed and were negative. Past medical history, appointments, medications, allergies reviewed. Previous Medical History PAST MEDICAL HISTORY Diagnosis Date Coronary atherosclerosis of unspecified type of vessel, pauma or graft Coronary artery disease Other and unspecified hyperlipidemia Unspecified essential hypertension Essential hypertension Previous Surgical History PAST SURGICAL HISTORY Procedure Laterality Date APPENDECTOMY PERC TRANSL COR ANGIO 2005 last time Percutaneous Transluminal Coronary Angio Status 3 procedures Family History FAMILY HISTORY Problem Relation Age of Onset Arthritis Mother Alcohol/Drug Father Stroke Father Cancer Brother 50 Stomach cancer Patient Allergies ALLERGIES No Known Allergies Current Medications Current Outpatient Medications on File Prior to Visit Medication Sig atorvastatin (LIPITOR) 40 mg tablet Take 1 tablet by mouth daily at bedtime. warfarin (COUMADIN) 2.5 mg tablet Take 2.5 mg everyday aspirin 81 mg chewable tablet Take 1 tablet by mouth once daily. lisinopril (ZESTRIL) 10 mg tablet Take 1 tablet by mouth once daily. No current facility-administered medications on file prior to visit. Social History Social History Tobacco Use Smoking status: Former Smokeless tobacco: Never Tobacco comments: 30 yaers ago Substance Use Topics Alcohol use: No Drug use: No EXAM: BP 110/62 Pulse 62 Resp 16 General Appearance: weak, mildly confused. Lungs: Lungs clear to auscultation. No wheezing, rhonchi, rales.. Heart: RRR without murmur, gallop, or rubs. No ectopy. Extremities: moves all extremities with good strength. Health Maintenance List RSV Vaccine(1 - 1-dose 60+ series) Never done LDL Cholesterol due on 08/16/2023 Diabetes Screening due on 08/15/2025 DTaP,Tdap,Td Vaccine(2 - Td or Tdap) due on 02/27/2031 Influenza Vaccine Completed Advance Directive Discussion Completed Depression Assessment Completed Shingrix Vaccine Completed Covid-19 Vaccine Completed Pneumococcal Vaccine: 65+ Completed Data reviewed [facility] ER reports 02/10/23 ASSESSMENT/PLAN: 1. Cerebral infarction, unspecified mechanism (HCC) - ICD9: 434.91, ICD10: I63.9 (primary diagnosis) Concern for CVA; will get MRI - MRI BRAIN WO IVCON 2. Generalized weakness - ICD9: 780.79, ICD10: R53.1 3. Speech disturbance, unspecified type - ICD9: 784.59, ICD10: R47.9 4. Hyperlipidemia, unspecified hyperlipidemia type - ICD9: 272.4, ICD10: E78.5 5. Essential hypertension, benign - ICD9: 401.1, ICD10: I10 - Controlled - Continue current medications - Recommend home blood pressure monitoring, to bring results to next visit - Encouraged sodium restriction, DASH or Mediterranean diet - Recommend regular aerobic exercise 6. Paroxysmal atrial fibrillation (HCC) - ICD9: 427.31, ICD10: I48.0 IF condition worsens return to ER, may need inpatient care if he is not able to take care of himself at home Follow up prn I agree with the Chief Complaint, ROS, and Past Histories independently gathered by the clinical patient support tech and the remaining scribed note accurately describes my personal service to the patient. Medical Decision Making: Problems: High: Chronic illness with severe change Data: Unique test(s) ordered: 1 Risk: Moderate: Moderate risk from testing/treatment Medical Decision Making Level: 4 - Moderate Stas Mora MD The documentation for this note was completed by Marta Palacio Ma acting as scribe for Stas Mora MD. February 16, 2023 2:01 PM. Marta Palacio Ma documented in this encounterC[facility]23 Miscellaneous Notes* Telephone Encounter - Elise Paredes Formerly [facility] - 02/13/2023 3:56 PM EST [facility] Amb[facility] An[facility] Clinic Anticoagulation Episode Summary Anticoagulation Care Providers Provider Role Specialty Phone number Stas Mora MD Referring Family Medicine [phone] Roby Flores is a 87 year old year old male patient being evaluated today for a Lab INR. Patient is currently on the following anticoagulant(s) Warfarin. Labs PT INR (no units) Date Value 05/19/2022 1.7 05/15/2021 2.3 04/17/2021 1.9 INR (no units) Date Value 02/13/2023 1.6 02/06/2023 1.9 01/30/2023 2.1 Hemoglobin (g/dL) Date Value 08/15/2022 12.6 Hematocrit (%) Date Value 08/15/2022 40.0 Platelet Count (k/uL) Date Value 08/15/2022 229 Creatinine (mg/dL) Date Value 08/15/2022 0.89 02/21/2022 0.85 12/06/2021 0.80 03/13/2021 0.80 08/28/2020 0.83 Bilirubin, Total (mg/dL) Date Value 08/15/2022 0.9 03/13/2021 0.5 ALT (U/L) Date Value 08/15/2022 14 03/13/2021 24 AST (U/L) Date Value 08/15/2022 23 03/13/2021 24 CrCl cannot be calculated (Patient's most recent lab result is older than the maximum 180 days allowed.). 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 Paroxysmal atrial fibrillation (hcc) Anticoagulation Episode Summary Current INR goal: 2.0-3.0 Assessment: INR result of 1.6 is SUBtherapeutic due to: unknown cause - did not speak to patient Plan: Current Warfarin Dosing As of 02/13/2023 Full warfarin instructions: 02/13: 5 mg; Otherwise 2.5 mg every day Left voice message for Maria Guadalupe Advised patient to increase dose for 1 day only then resume weekly regimen Next lab INR check scheduled on 02/20/2023 Elise Paredes [facility] Clinical Pharmacist, Pharmacy Anticoagulation Clinic Pharmacy Anticoagulation Clinic Pager: [phone]. documented in this encounterC[facility]11-17-2023 Miscellaneous Notes* Telephone Encounter - Senia Phillips RP - 02/06/2023 4:28 PM EST [facility] Amb[facility] Antico[facility] Clinic Anticoagulation Episode Summary Anticoagulation Care Providers Provider Role Specialty Phone number Stas Mora MD Referring Family Medicine [phone] Roby Flores is a 87 year old year old male patient being evaluated today for a Telemanagement visit. Patient is currently on the following anticoagulant(s) Warfarin. Labs PT INR (no units) Date Value 05/19/2022 1.7 05/15/2021 2.3 04/17/2021 1.9 INR (no units) Date Value 02/06/2023 1.9 01/30/2023 2.1 01/23/2023 1.7 Hemoglobin (g/dL) Date Value 08/15/2022 12.6 Hematocrit (%) Date Value 08/15/2022 40.0 Platelet Count (k/uL) Date Value 08/15/2022 229 Creatinine (mg/dL) Date Value 08/15/2022 0.89 02/21/2022 0.85 12/06/2021 0.80 03/13/2021 0.80 08/28/2020 0.83 Bilirubin, Total (mg/dL) Date Value 08/15/2022 0.9 03/13/2021 0.5 ALT (U/L) Date Value 08/15/2022 14 03/13/2021 24 AST (U/L) Date Value 08/15/2022 23 03/13/2021 24 Estimated Creatinine Clearance: 62.3 mL/min (based on SCr of 0.89 mg/dL). ALLERGIES No Known Allergies 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: [facility] current us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 Paroxysmal atrial fibrillation (hcc) Anticoagulation Episode Summary Current INR goal: 2.0-3.0 Assessment: INR result of 1.9 is SUBtherapeutic due to: No obvious cause Plan: Current Warfarin Dosing As of 02/06/2023 Full warfarin instructions: 02/07: 3.75 mg; Otherwise 2.5 mg every day Called and spoke to patient/caregiver Advised patient to increase dose for 1 day only then resume weekly regimen Next lab INR check scheduled on 02/13/2023 Patient verbalizes understanding of the plan. Patient denies need for refills. Senia Phillips RPh Clinical Pharmacist, Pharmacy Anticoagulation Clinic Pharmacy Anticoagulation Clinic Pager: [phone]. documented [place] encounterAnthony [place] [address]-06-2023 Miscellaneous Notes* Telephone Encounter - Senia Phillips RPh - 12/26/2022 3:04 PM EDT [facility] An[facility] Clinic Anticoagulation Episode Summary Anticoagulation Care Providers Provider Role Specialty Phone number Stas Mora MD Referring Family Medicine [phone] Roby Flores is a 87 year old year old male patient being evaluated today for a Telemanagement visit. Patient is currently on the following anticoagulant(s) Warfarin. Labs PT INR (no units) Date Value 05/19/2022 1.7 05/15/2021 2.3 04/17/2021 1.9 INR (no units) Date Value 12/26/2022 2.5 12/19/2022 2.0 12/12/2022 4.1 Hemoglobin (g/dL) Date Value 08/15/2022 12.6 Hematocrit (%) Date Value 08/15/2022 40.0 Platelet Count (k/uL) Date Value 08/15/2022 229 Creatinine (mg/dL) Date Value 08/15/2022 0.89 02/21/2022 0.85 12/06/2021 0.80 03/13/2021 0.80 08/28/2020 0.83 Bilirubin, Total (mg/dL) Date Value 08/15/2022 0.9 03/13/2021 0.5 ALT (U/L) Date Value 08/15/2022 14 03/13/2021 24 AST (U/L) Date Value 08/15/2022 23 03/13/2021 24 Estimated Creatinine Clearance: 62.3 mL/min (based on SCr of 0.89 mg/dL). 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 Paroxysmal atrial fibrillation (hcc) Anticoagulation Episode Summary Current INR goal: 2.0-3.0 Assessment: INR result of 2.5 is therapeutic Plan: Current Warfarin Dosing As of 12/26/2022 Full warfarin instructions: 2.5 mg every day [employer] Records message Advised patient to continue current weekly dose as noted above Next lab INR check scheduled on 01/09/2023 Senia Phillips RPh Clinical Pharmacist, Pharmacy Anticoagulation Clinic Pharmacy Anticoagulation Clinic Pager: [phone]. documented in this encounterC[facility]09-29-2023 Miscellaneous Notes* Telephone Encounter - Senia Phillips RPh - 12/19/2022 4:30 PM EDT [facility] Ambulatory [facility] Anticoagulation Clinic Anticoagulation Episode Summary Anticoagulation Care Providers Provider Role Specialty Phone number Stas Mora MD Referring Family Medicine [phone] Roby Flores is a 87 year old year old male patient being evaluated today for a Telemanagement visit. Patient is currently on the following anticoagulant(s) Warfarin. Labs PT INR (no units) Date Value 05/19/2022 1.7 05/15/2021 2.3 04/17/2021 1.9 INR (no units) Date Value 12/19/2022 2.0 12/12/2022 4.1 11/21/2022 2.3 Hemoglobin (g/dL) Date Value 08/15/2022 12.6 Hematocrit (%) Date Value 08/15/2022 40.0 Platelet Count (k/uL) Date Value 08/15/2022 229 Creatinine (mg/dL) Date Value 08/15/2022 0.89 02/21/2022 0.85 12/06/2021 0.80 03/13/2021 0.80 08/28/2020 0.83 Bilirubin, Total (mg/dL) Date Value 08/15/2022 0.9 03/13/2021 0.5 ALT (U/L) Date Value 08/15/2022 14 03/13/2021 24 AST (U/L) Date Value 08/15/2022 23 03/13/2021 24 Estimated Creatinine Clearance: 62.3 mL/min (based on SCr of 0.89 mg/dL). 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 Paroxysmal atrial fibrillation (hcc) Anticoagulation Episode Summary Current INR goal: 2.0-3.0 Assessment: INR result of 2.0 is therapeutic Plan: Current Warfarin Dosing As of 12/19/2022 Full warfarin instructions: 2.5 mg every day [employer] Records message Advised patient to continue current weekly dose as noted above Next lab INR check scheduled on 01/02/2023 Senia Phillips RPh Clinical Pharmacist, Pharmacy Anticoagulation Clinic Pharmacy Anticoagulation Clinic Pager: [phone]. documented in this encounterC[facility]09-22-2023 Miscellaneous Notes* Telephone Encounter - Senia Phillips RPh - 12/12/2022 4:01 PM EDT [facility] Ambulatory [facility] Anticoagulation Clinic Anticoagulation Episode Summary Anticoagulation Care Providers Provider Role Specialty Phone number Stas Mora MD Referring Family Medicine [phone] Roby Flores is a 87 year old year old male patient being evaluated today for a Telemanagement visit. Patient is currently on the following anticoagulant(s) Warfarin. Labs PT INR (no units) Date Value 05/19/2022 1.7 05/15/2021 2.3 04/17/2021 1.9 INR (no units) Date Value 12/12/2022 4.1 11/21/2022 2.3 11/07/2022 2.2 Hemoglobin (g/dL) Date Value 08/15/2022 12.6 Hematocrit (%) Date Value 08/15/2022 40.0 Platelet Count (k/uL) Date Value 08/15/2022 229 Creatinine (mg/dL) Date Value 08/15/2022 0.89 02/21/2022 0.85 12/06/2021 0.80 03/13/2021 0.80 08/28/2020 0.83 Bilirubin, Total (mg/dL) Date Value 08/15/2022 0.9 03/13/2021 0.5 ALT (U/L) Date Value 08/15/2022 14 03/13/2021 24 AST (U/L) Date Value 08/15/2022 23 03/13/2021 24 Estimated Creatinine Clearance: 62.3 mL/min (based on SCr of 0.89 mg/dL). ALLERGIES No Known Allergies 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: [facility] current us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 Paroxysmal atrial fibrillation (hcc) Anticoagulation Episode Summary Current INR goal: 2.0-3.0 Assessment: INR result of 4.1 is SUPRAtherapeutic due to: Patient taking incorrect warfarin dose or extra dose(s) Plan: Current Warfarin Dosing As of 12/12/2022 Full warfarin instructions: 12/12: Hold; Otherwise 2.5 mg every day Called and spoke to patient/caregiver Advised patient to hold 1 dose then decrease current regimen Next lab INR check scheduled on 12/26/2022 Patient verbalizes understanding of the plan. Patient denies need for refills. Senia Phillips riya Clinical Pharmacist, Pharmacy Anticoagulation Clinic Pharmacy Anticoagulation Clinic Pager: [phone]. documented in this encounterC[facility]09-01-2023 Miscellaneous Notes* Telephone Encounter - Jeimy Duong RPh - 11/21/2022 2:38 PM EDT [facility] Ambulatory Pharmacy Anticoagulation Clinic Anticoagulation Episode Summary Anticoagulation Care Providers Provider Role Specialty Phone number Stas Mora MD Referring Family Medicine [phone] Roby Flores is a 87 year old year old male patient being evaluated today for a Lab INR. Patient is currently on the following anticoagulant(s) Warfarin. Labs PT INR (no units) Date Value 05/19/2022 1.7 05/15/2021 2.3 04/17/2021 1.9 INR (no units) Date Value 11/21/2022 2.3 11/07/2022 2.2 10/24/2022 2.5 Hemoglobin (g/dL) Date Value 08/15/2022 12.6 Hematocrit (%) Date Value 08/15/2022 40.0 Platelet Count (k/uL) Date Value 08/15/2022 229 Creatinine (mg/dL) Date Value 08/15/2022 0.89 02/21/2022 0.85 12/06/2021 0.80 03/13/2021 0.80 08/28/2020 0.83 Bilirubin, Total (mg/dL) Date Value 08/15/2022 0.9 03/13/2021 0.5 ALT (U/L) Date Value 08/15/2022 14 03/13/2021 24 AST (U/L) Date Value 08/15/2022 23 03/13/2021 24 Estimated Creatinine Clearance: 62.3 mL/min (based on SCr of 0.89 mg/dL). ALLERGIES No Known Allergies 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: Anticoagulation Episode Summary Current INR goal: 2.0-3.0 Assessment: INR result of 2.3 is therapeutic Plan: Current Warfarin Dosing As of 11/21/2022 Full warfarin instructions: 2.5 mg every day Left voice message on home number Advised patient to continue current weekly dose as noted above Next lab INR check scheduled on 12/12/2022 Jeimy Duong RPh Clinical Pharmacist, Pharmacy Anticoagulation Clinic Pharmacy Anticoagulation Clinic Pager: [phone]. documented in this encounterCleveland [facility]08-28-2023 Hospital Discharge instructions Patient Education 11/17/2022 16:32:18 Laceration, Face: Suture or Tape Face Laceration: Stitches or Tape A laceration is a cut through the skin. This will require stitches if it is deep. Minor cuts may betreated with surgical tape. Home care Your healthcare provider may prescribe an antibiotic. This is to help prevent infection. Follow allinstructions for taking this medicine. Take the medicine every day until it is gone or you are toldto stop. You should not have any left over. The healthcare provider may prescribe medicines for pain. Follow instructions for taking them. Follow the healthcare provider s instructions on how to care for the cut. Wash your hands with soap and warm water before and after caring for the cut. This helps prevent infection. If a bandage was applied and it becomes wet or dirty, replace it. Otherwise, leave it in place for the first 24 hours, then change it once a day or as directed. If stitches were used, clean the wound daily: oAfter removing the bandage, wash the area with soap and water. Use a wet cotton swab to loosen andremove any blood or crust that forms. oAfter cleaning, keep the wound clean and dry. Talk with your healthcare provider before putting any antibiotic ointment on the wound. Reapply a fresh bandage. oYou may remove the bandage to shower as usual after the first 24 hours, but don't soak the area inwater (no swimming) until the sutures are removed. If surgical tape was used, keep the area clean and dry. If it becomes wet, blot it dry with a towel. Most facial skin wounds heal without problems. But an infection sometimes occurs despite proper treatment. Watch for the signs of infection listed below. Follow-up care Follow up with your healthcare provider as advised. Be sure to return for removal of the stitches as directed. Ask your provider how long stitches should remain in place. If surgical tape closures were used, you may remove them yourself when your provider recommends if they have not fallen off on their own. When to seek medical advice Call your healthcare provider right away if any of these occur: Wound bleeding not controlled by direct pressure Signs of infection, including increasing pain in the wound, increasing wound redness or swelling, or pus or bad odor coming from the wound Fever of 100.4 F (38 C) or higher, or as directed by your healthcare provider Stitches come apart or fall out or surgical tape falls off before 5 days Wound edges reopen Wound changes colors Numbness around the wound [id number] [employer]. [address] [place] [address]. All rights reserved. This information is not intended as a substitute for professional medical care. Always follow yourhealthcare professional's instructions. 11/17/2022 16:32:14 Head Injury (Adult) Head Injury (Adult) You have a head injury. It does not appear serious at this time. But symptoms of a more serious problem, such as a mild brain injury (concussion) or bruising or bleeding in the brain, may appear later. For this reason, you or someone caring for you will need to watch for the symptoms listed below. Once you re home, also be sure to follow any care instructions you re given. Home care Watch for the following symptoms Seek emergency medical care if you have any of these symptoms over the next hours to days: Headache Nausea or vomiting Dizziness Sensitivity to light or noise Unusual sleepiness or grogginess Trouble falling asleep Personality changes Vision changes Memory loss Confusion Trouble walking or clumsiness Loss of consciousness (even for a short time) Inability to be awakened Stiff neck Weakness or numbness in any part of the body Seizures General care If you were prescribed medicines for pain, use them as directed. Note: Don t take other medicines for pain without talking to your provider first. To help reduce swelling and pain, apply a cold source to the injured area for up to 20 minutes at atime. Do this as often as directed. Use a cold pack or bag of ice wrapped in a thin towel. Never apply a cold source directly to the skin. If you have cuts or scrapes as a result of your head injury, care for them as directed. For the next 24 hours (or longer, if instructed): oDon t drink alcohol or use sedatives or other medicines that make you sleepy. oDon t drive or operate machinery. oDon t do anything strenuous, such as heavy lifting or straining. oLimit tasks that require concentration. This includes reading, using a smartphone or computer, watching TV, and playing video games. oDon t return to sports or other activities that could result in another head injury. Follow-up care Follow up with your healthcare provider, or as directed. If imaging tests were done, they will be reviewed by a doctor. You will be told the results and any new findings that may affect your care. When to seek medical advice Call your healthcare provider right away if any of these occur: Pain doesn t get better or worsens New or increased swelling or bruising Fever of 100.4 F (38 C) or higher, or as directed by your provider Increased redness, warmth, drainage, or bleeding from the injured area Fluid drainage or bleeding from the nose or ears Any depression or bony abnormality in the injured area Persistent confusion or lethargy Bruising behind the ears or bruising around the eyes [id number] [employer]. [address] [place] [address]. All rights reserved. This information is not intended as a substitute for professional medical care. Always follow yourhealthcare professional's instructions. Follow Up Care 11/17/2022 15:05:08 With:Call Physician Referral Address:Unknown When:2-4 days [facility] 08-28-2023 Note Discharge Instructions Thank you for allowing [place] to assist you with your healthcare needs. The following is importantdischarge information regarding your hospital visit. Diagnosis from Today's Visit Fall Head injury Laceration of forehead Multiple head and/or neck laceration What to Do Next Instructions from Your Care Team sutures out in 5-7 days No qualifying data available. Post Acute Orders No qualifying data available. You Need to Schedule the Following Appointments Follow Up with Call Physician Referral When Within 2-4 days Allergies NKA Medications Please ask your primary doctor or pharmacist before taking any other medication not listed, including over the counter drugs, herbal medications, vitamins and or supplements as they may interact withyour home medications. What How Much When Instructions Last Dose Unchanged aspirin 81 Milligram by mouth Every day Unchanged atorvastatin (atorvastatin 40 mg oral tablet) 1 tab(s) by mouth Once a day Unchanged fosinopril (fosinopril 10 mg oral tablet) 1 tab(s) by mouth Every day Unchanged lisinopril (lisinopril 10 mg oral tablet) 1 tab(s) by mouth Once a day Unchanged metoprolol (Lopressor 50 mg oral tablet) 0.5 tab(s) by mouth Two (2) times a day Unchanged simvastatin (simvastatin 40 mg oral tablet) 1 tab(s) by mouth Once a day (at bedtime) Unchanged vardenafil (vardenafil 10 mg oral tablet) See Instructions PO daily as needed Unchanged warfarin (warfarin 2.5 mg oral tablet) 2 tab(s) by mouth Every Thursday and TAKE 5 MG BY MOUTH EVERY THURSDAY AND THURSDAY, THEN 2.5 MG ALL OTHER DAYS Unchanged warfarin (warfarin 2.5 mg oral tablet) 1 tab(s) by mouth Every Thu / / Thu / Thu / Thu Please take this list to your next doctor s visit. Bring all medications you take, including over the counter medications, herbals and other supplements with you to your doctor s visit. Patients and families are reminded to discard old lists and to update any records with all medication providers or retail pharmacies. Education Materials Face Laceration: Stitches or Tape A laceration is a cut through the skin. This will require stitches if it is deep. Minor cuts may betreated with surgical tape. Home care Your healthcare provider may prescribe an antibiotic. This is to help prevent infection. Follow allinstructions for taking this medicine. Take the medicine every day until it is gone or you are toldto stop. You should not have any left over. The healthcare provider may prescribe medicines for pain. Follow instructions for taking them. Follow the healthcare provider s instructions on how to care for the cut. Wash your hands with soap and warm water before and after caring for the cut. This helps prevent infection. If a bandage was applied and it becomes wet or dirty, replace it. Otherwise, leave it in place for the first 24 hours, then change it once a day or as directed. If stitches were used, clean the wound daily: oAfter removing the bandage, wash the area with soap and water. Use a wet cotton swab to loosen andremove any blood or crust that forms. oAfter cleaning, keep the wound clean and dry. Talk with your healthcare provider before putting any antibiotic ointment on the wound. Reapply a fresh bandage. oYou may remove the bandage to shower as usual after the first 24 hours, but don't soak the area inwater (no swimming) until the sutures are removed. If surgical tape was used, keep the area clean and dry. If it becomes wet, blot it dry with a towel. Most facial skin wounds heal without problems. But an infection sometimes occurs despite proper treatment. Watch for the signs of infection listed below. Follow-up care Follow up with your healthcare provider as advised. Be sure to return for removal of the stitches as directed. Ask your provider how long stitches should remain in place. If surgical tape closures were used, you may remove them yourself when your provider recommends if they have not fallen off on their own. When to seek medical advice Call your healthcare provider right away if any of these occur: Wound bleeding not controlled by direct pressure Signs of infection, including increasing pain in the wound, increasing wound redness or swelling, or pus or bad odor coming from the wound Fever of 100.4 F (38 C) or higher, or as directed by your healthcare provider Stitches come apart or fall out or surgical tape falls off before 5 days Wound edges reopen Wound changes colors Numbness around the wound [id number] [employer]. [address] [place] [address]. All rights reserved. This information is not intended as a substitute for professional medical care. Always follow yourhealthcare professional's instructions. Head Injury (Adult) You have a head injury. It does not appear serious at this time. But symptoms of a more serious problem, such as a mild brain injury (concussion) or bruising or bleeding in the brain, may appear later. For this reason, you or someone caring for you will need to watch for the symptoms listed below. Once you re home, also be sure to follow any care instructions you re given. Home care Watch for the following symptoms Seek emergency medical care if you have any of these symptoms over the next hours to days: Headache Nausea or vomiting Dizziness Sensitivity to light or noise Unusual sleepiness or grogginess Trouble falling asleep Personality changes Vision changes Memory loss Confusion Trouble walking or clumsiness Loss of consciousness (even for a short time) Inability to be awakened Stiff neck Weakness or numbness in any part of the body Seizures General care If you were prescribed medicines for pain, use them as directed. Note: Don t take other medicines for pain without talking to your provider first. To help reduce swelling and pain, apply a cold source to the injured area for up to 20 minutes at atime. Do this as often as directed. Use a cold pack or bag of ice wrapped in a thin towel. Never apply a cold source directly to the skin. If you have cuts or scrapes as a result of your head injury, care for them as directed. For the next 24 hours (or longer, if instructed): oDon t drink alcohol or use sedatives or other medicines that make you sleepy. oDon t drive or operate machinery. oDon t do anything strenuous, such as heavy lifting or straining. oLimit tasks that require concentration. This includes reading, using a smartphone or computer, watching TV, and playing video games. oDon t return to sports or other activities that could result in another head injury. Follow-up care Follow up with your healthcare provider, or as directed. If imaging tests were done, they will be reviewed by a doctor. You will be told the results and any new findings that may affect your care. When to seek medical advice Call your healthcare provider right away if any of these occur: Pain doesn t get better or worsens New or increased swelling or bruising Fever of 100.4 F (38 C) or higher, or as directed by your provider Increased redness, warmth, drainage, or bleeding from the injured area Fluid drainage or bleeding from the nose or ears Any depression or bony abnormality in the injured area Persistent confusion or lethargy Bruising behind the ears or bruising around the eyes [id number] [employer]. [address] [place] [address], [place] [address]. All rights reserved. This information is not intended as a substitute for professional medical care. Always follow yourhealthcare professional's instructions. Additional Information VACCINATE! IT SAVES LIVES! Members of the community who have not yet received the COVID-19 vaccine and would like to receive it can visit one of [facility] vaccine clinics. There are many vaccine clinic locations within the [facility]. For locations and available times, please visit [email or web address] It is important to note that some COVID mobile vaccine clinics are held outdoors and may be canceled in rainy or stormy conditions. To learn more about pediatric vaccinations (ages 5-11), we invite you to visit the [facility] webpage. https://[email or web address]/[email or web address] [email or web address] learn more about the COVID-19 vaccine, we invite you to visit the CDC website for a list of frequently asked questions. https://www.cdc.gov/coronavirus/2019-ncov/vaccines/faq.html [facility] Patient Portal Access Instructions: Stay connected with your healthcare team and access your personal medical information anytime with the [facility] [employer] Patient Portal. If you would like a full copy of your medical records please contact the [facility] Medical Records Department Thursday through Thursday between 8a.m. and 4:30p.m. Please follow the directions below to access the portal: 1.Access the email account you provided upon registration to the hospital.2.Look for an invitation email from [facility].3.Open the email and access the invitation link: Accept Invitation to [facility]4.Fill in the required العلي to create your account. Sign into [email or web address] with your username and password that you created in the above steps to stay up to date. You can then view a summary of results, a summary of your visits, and the ability to download your summaries to your computer or send the information securely to a physician. Remember that your healthcare information is confidential, so carefully consider who you will allow to register on the [facility] Patient Portal for access to your information. You can also access the [facility] Patient Portal on the [employer] jonathon. Simply click on Health Records under [employer] [facility] [place] and then click on the [employer] logo. HOW TO SAFELY DISPOSE OF PRESCRIPTION MEDICATIONS Please use one of the following methods to safely dispose of your unused medications. 1.Use a drug disposal kit: the drug disposal pouch allows you to safely discard your old and unuseddrugs. Ask your nurse to give you one when you are discharged.2.Visit a local take-back location: Many local pharmacies and police departments have programs that collect old and unwanted prescriptiondrugs. Call your local pharmacy or go to http://[email or web address].Doculogy/2C5Oa5i to find one close to you.3.Make use of household items: Use cat litter or old coffee grounds to dispose medications if other options arenot available. Mix your drugs with these household products, seal them in an airtight container andthrow it into the garbage. Call [facility]: [phone] to be sure your drugs can be disposed of in this way. Some medicines may require a different approach.4.Never flush your medications down the toilet. IF YOU HAVE BEEN PRESCRIBED AN OPIOIDS FOR PAIN If you have been prescribed an opioid (such as hydrocodone, oxycodone or morphine), it is critical to understand the possible side effects and risks of opioid pain medications. Even when taken as directed, opioids can have several side effects including: Tolerance, meaning you might need to take more of a medication for the same pain relief. Nausea, vomiting and/or constipation. Sleepiness, dizziness, dry mouth, confusion, depression or itching. Physical dependence, meaning you have withdrawal symptoms when a medication is stopped ? this can develop within a few days. KNOW YOUR RESPONSIBILITIES It is important to know exactly how much and how often to take the opioid pain medications you are prescribed. Never take opioids in higher amounts or more often than prescribed. Do not combine opioids with alcohol or other drugs that cause drowsiness, such as benzodiazepines, also known as benzos,including diazepam and alprazolam, muscle relaxants or sleep aids. Never sell or share prescriptionopioids. This is illegal. Store opioids in a secure place and out of reach of others (including children, family, friends and visitors). The last page(s) of this document has been signed and retained as a CHART COPY Signatures Patient Education Materials Laceration, Face: Suture or Tape Head Injury (Adult) Medication Leaflets My discharge plan and instructions have been reviewed and explained to me and I,SANDRA ROBY Radha understand my current condition and have read and understand these discharge instructions. I have received a written copy of the plan/instructions. If I have questions, I am aware that I should contact my doctor. 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 Automated exposure control, iterative reconstruction, and/or weight based adjustment of the mA/kV was utilized to reduce the radiation dose to as low as reasonably achievable. COMPARISON: None. HISTORY: ORDERING SYSTEM PROVIDED HISTORY: Reason for Exam: pain FINDINGS: BRAIN/VENTRICLES: There is no acute intracranial hemorrhage, mass effect or midline shift. No abnormal extra-axial fluid collection. There is extensive bilateral microangiopathic change. There is a 9 mm left basal ganglion lacunar infarct which is the doan-white differentiation is maintained without evidence of an acute infarct. There is no evidence of hydrocephalus. ORBITS: The visualized portion of the orbits demonstrate no acute abnormality. SINUSES: Left maxillary sinus is hypoplastic and opacified. SOFT TISSUES/SKULL: No acute abnormality of the visualized skull or soft tissues. IMPRESSION: No acute intracranial abnormality. Extensive white matter disease most commonly seen in microangiopathic change. 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 Interpreted by: Silvestre Chaudhari MD Preliminary Report By: Silvestre Chaudhari MD Electronically signed By Silvestre Chaudhari MD Dictated Date: 11/17/2022 4:24:43 PM Prelim Date: 11/17/2022 4:26:20 PM Sign Date: 11/17/2022 4:26:20 PM Ordering Provider: [facility]08-18-2023 Miscellaneous Notes* Telephone Encounter - Senia Phillips [facility] - 11/07/2022 3:22 PM EDT [facility] Ambulatory Pharmacy Anticoagulation Clinic Anticoagulation Episode Summary Anticoagulation Care Providers Provider Role Specialty Phone number Stas Mora MD Referring Family Medicine [phone] Roby Flores is a 87 year old year old male patient being evaluated today for a Telemanagement visit. Patient is currently on the following anticoagulant(s) Warfarin. Labs PT INR (no units) Date Value 05/19/2022 1.7 05/15/2021 2.3 04/17/2021 1.9 INR (no units) Date Value 11/07/2022 2.2 10/24/2022 2.5 10/17/2022 5.5 Hemoglobin (g/dL) Date Value 08/15/2022 12.6 Hematocrit (%) Date Value 08/15/2022 40.0 Platelet Count (k/uL) Date Value 08/15/2022 229 Creatinine (mg/dL) Date Value 08/15/2022 0.89 02/21/2022 0.85 12/06/2021 0.80 03/13/2021 0.80 08/28/2020 0.83 Bilirubin, Total (mg/dL) Date Value 08/15/2022 0.9 03/13/2021 0.5 ALT (U/L) Date Value 08/15/2022 14 03/13/2021 24 AST (U/L) Date Value 08/15/2022 23 03/13/2021 24 Estimated Creatinine Clearance: 62.3 mL/min (based on SCr of 0.89 mg/dL). ALLERGIES No Known Allergies 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: [facility] current us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 Paroxysmal atrial fibrillation (hcc) Anticoagulation Episode Summary Current INR goal: 2.0-3.0 Assessment: INR result of 2.2 is therapeutic Plan: Current Warfarin Dosing As of 11/07/2022 Full warfarin instructions: 2.5 mg every day [facility] Records message Advised patient to continue current weekly dose as noted above Next lab INR check scheduled on 11/21/2022 Senia Phillips RPh Clinical Pharmacist, Pharmacy Anticoagulation Clinic Pharmacy An[facility] Pager: [phone]. documented in this encounterC[facility] Miscellaneous Notes* Telephone Encounter - Senia Phillips RPh - 10/31/2022 2:29 PM EDT Patient due to test INR today. Will continue to monitor for results. Senia Phillips RPh documented in this encounterC[facility]08-04-2023 Miscellaneous Notes* Telephone Encounter - Senia Phillips RPh - 10/24/2022 3:13 PM EDT [facility] Ambulatory Pharm[facility] Anticoagulation Clinic Anticoagulation Episode Summary Anticoagulation Care Providers Provider Role Specialty Phone number Stas Mora MD Referring Family Medicine [phone] Roby Flores is a 87 year old year old male patient being evaluated today for a Telemanagement visit. Patient is currently on the following anticoagulant(s) Warfarin. Labs PT INR (no units) Date Value 05/19/2022 1.7 05/15/2021 2.3 04/17/2021 1.9 INR (no units) Date Value 10/24/2022 2.5 10/17/2022 5.5 09/26/2022 2.8 Hemoglobin (g/dL) Date Value 08/15/2022 12.6 Hematocrit (%) Date Value 08/15/2022 40.0 Platelet Count (k/uL) Date Value 08/15/2022 229 Creatinine (mg/dL) Date Value 08/15/2022 0.89 02/21/2022 0.85 12/06/2021 0.80 03/13/2021 0.80 08/28/2020 0.83 Bilirubin, Total (mg/dL) Date Value 08/15/2022 0.9 03/13/2021 0.5 ALT (U/L) Date Value 08/15/2022 14 03/13/2021 24 AST (U/L) Date Value 08/15/2022 23 03/13/2021 24 Estimated Creatinine Clearance: 62.3 mL/min (based on SCr of 0.89 mg/dL). ALLERGIES No Known Allergies 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: [facility] current us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 Paroxysmal atrial fibrillation (hcc) Anticoagulation Episode Summary Current INR goal: 2.0-3.0 Assessment: INR result of 2.5 is therapeutic Plan: Current Warfarin Dosing As of 10/24/2022 Full warfarin instructions: 2.5 mg every day [facility] Records message Advised patient to decrease total weekly regimen to better reflect overall dose given past few weeks Next lab INR check scheduled on 10/31/2022 Senia Phillips RPh Clinical Pharmacist, Pharmacy Anticoagulation Clinic Pharmacy Anticoagulation Clinic Pager: [phone]. documented in this encounterC[facility]07-28-2023 Miscellaneous Notes* Telephone Encounter - Jason Easton MD - 10/17/2022 4:25 PM EDT Reviewed recommendations and agree. * Telephone Encounter - Halina Castelan RN - 10/17/2022 3:36 PM EDT Patient s identity has been confirmed by name and birthdate: Yes Call received from Rolanda Saavedra from [facility] lab at 1530 PM to report an urgent value for PT INR with a result of 5.5. Routed to Dr Easton at 1559 as an FYI. Please see the Anticoagulation TE call from today by the [facility] Anticoagulation Clinic. They spoke with pt at 1543 and gave pt instructions on what to do. Halina Castelan RN documented in this encounterCleveland Clinic [facility]07-28-2023 Miscellaneous Notes* Telephone Encounter - Yomi Wills, [facility] - 10/17/2022 3:43 PM EDT [facility] Ambulatory Pharm[facility] Anticoagulation Clinic Anticoagulation Episode Summary Anticoagulation Care Providers Provider Role Specialty Phone number Stas Mora MD Referring Family Medicine [phone] Roby Flores is a 87 year old year old male patient being evaluated today for a Lab INR. Patient is currently on the following anticoagulant(s) Warfarin. Labs PT INR (no units) Date Value 05/19/2022 1.7 05/15/2021 2.3 04/17/2021 1.9 INR (no units) Date Value 10/17/2022 5.5 09/26/2022 2.8 09/12/2022 3.9 Hemoglobin (g/dL) Date Value 08/15/2022 12.6 Hematocrit (%) Date Value 08/15/2022 40.0 Platelet Count (k/uL) Date Value 08/15/2022 229 Creatinine (mg/dL) Date Value 08/15/2022 0.89 02/21/2022 0.85 12/06/2021 0.80 03/13/2021 0.80 08/28/2020 0.83 Bilirubin, Total (mg/dL) Date Value 08/15/2022 0.9 03/13/2021 0.5 ALT (U/L) Date Value 08/15/2022 14 03/13/2021 24 AST (U/L) Date Value 08/15/2022 23 03/13/2021 24 Estimated Creatinine Clearance: 62.3 mL/min (based on SCr of 0.89 mg/dL). 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 denies decrease in dietary vitamin K, changes in Prescription/OTC/herbal/ medicines or dietary supplement, cranberry or grapefruit ingestion, NVD, cold/flu/infection, change in tablet apperance, increased edema (worsened CHF), or EtOH ingestion Plan: Current Warfarin Dosing As of 10/17/2022 Full warfarin instructions: 3.75 mg every Fri; 2.5 mg all other days Called and spoke to patient/caregiver - spoke with Maria Guadalupe Patient reports no S/S of bleeding/bruising Advised patient to increase intake of Vitamin K rich foods x 1-2 days Advised patient to hold 2 doses then continue current regimen Next home INR check scheduled on 10/24/2022 Patient's caregiver verbalizes understanding of the plan. Patient denies need for refills. Yomi Wills [facility] Clinical Pharmacist, Pharmacy Anticoagulation Clinic Pharmacy Anticoagulation Clinic Pager: [phone]. documented in this encounterC[facility]07-07-2023 Miscellaneous Notes* Telephone Encounter - Jeimy Duong RPh - 09/26/2022 2:11 PM EDT [facility] Ambulatory Pharm[facility] Anticoagulation Clinic Anticoagulation Episode Summary Anticoagulation Care Providers Provider Role Specialty Phone number Stas Mora MD Referring Family Medicine [phone] Roby Flores is a 87 year old year old male patient being evaluated today for a Lab INR. Patient is currently on the following anticoagulant(s) Warfarin. Labs PT INR (no units) Date Value 05/19/2022 1.7 05/15/2021 2.3 04/17/2021 1.9 INR (no units) Date Value 09/26/2022 2.8 09/12/2022 3.9 08/29/2022 2.4 Hemoglobin (g/dL) Date Value 08/15/2022 12.6 Hematocrit (%) Date Value 08/15/2022 40.0 Platelet Count (k/uL) Date Value 08/15/2022 229 Creatinine (mg/dL) Date Value 08/15/2022 0.89 02/21/2022 0.85 12/06/2021 0.80 03/13/2021 0.80 08/28/2020 0.83 Bilirubin, Total (mg/dL) Date Value 08/15/2022 0.9 03/13/2021 0.5 ALT (U/L) Date Value 08/15/2022 14 03/13/2021 24 AST (U/L) Date Value 08/15/2022 23 03/13/2021 24 Estimated Creatinine Clearance: 62.3 mL/min (based on SCr of 0.89 mg/dL). ALLERGIES No Known Allergies 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: Anticoagulation Episode Summary Current INR goal: 2.0-3.0 Assessment: INR result of 2.8 is therapeutic Plan: Current Warfarin Dosing As of 09/26/2022 Full warfarin instructions: 3.75 mg every Fri; 2.5 mg all other days Called and spoke to patient/caregiver spouse Advised patient to continue current weekly dose as noted above Next lab INR check scheduled on 10/17/2022 Patient verbalizes understanding of the plan. Jeimy Duong RPh Clinical Pharmacist, Pharmacy Anticoagulation Clinic Pharmacy Anticoagulation Clinic Pager: [phone]. documented in this encounterCleveland [facility]06-23-2023 Miscellaneous Notes* Telephone Encounter - Jeimy Duong RPh - 09/12/2022 2:50 PM EDT [facility]ulatory [facility] Anticoagulation Clinic Anticoagulation Episode Summary Anticoagulation Care Providers Provider Role Specialty Phone number Stas Mora MD Referring Family Medicine [phone] Roby Flores is a 87 year old year old male patient being evaluated today for a Lab INR. Patient is currently on the following anticoagulant(s) Warfarin. Labs PT INR (no units) Date Value 05/19/2022 1.7 05/15/2021 2.3 04/17/2021 1.9 INR (no units) Date Value 09/12/2022 3.9 08/29/2022 2.4 08/15/2022 2.4 Hemoglobin (g/dL) Date Value 08/15/2022 12.6 Hematocrit (%) Date Value 08/15/2022 40.0 Platelet Count (k/uL) Date Value 08/15/2022 229 Creatinine (mg/dL) Date Value 08/15/2022 0.89 02/21/2022 0.85 12/06/2021 0.80 03/13/2021 0.80 08/28/2020 0.83 Bilirubin, Total (mg/dL) Date Value 08/15/2022 0.9 03/13/2021 0.5 ALT (U/L) Date Value 08/15/2022 14 03/13/2021 24 AST (U/L) Date Value 08/15/2022 23 03/13/2021 24 Estimated Creatinine Clearance: 62.3 mL/min (based on SCr of 0.89 mg/dL). ALLERGIES No Known Allergies 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: Anticoagulation Episode Summary Current INR goal: 2.0-3.0 Assessment: INR result of 3.9 is SUPRAtherapeutic due to: No obvious cause Patient denies any medication changes, grapefruit/cranberry ingestion, OTC/herbal/nutritional supplement use, accidental over dosage, changes in warfarin tablet color/shape/packing checker, eating less green vegetables, recent illness/fever/nausea/vomiting/diarrhea, increased edema/SOB, or ETOH consump tion. Plan: Current Warfarin Dosing As of 09/12/2022 Full warfarin instructions: 09/12: 1.25 mg; Otherwise 3.75 mg every Thu; 2.5 mg all other days Called and spoke to patient/caregiver daughter Advised patient to decrease dose for 1 day only then resume weekly regimen as noted above. Next lab INR check scheduled on 09/26/2022 Patient's caregiver verbalizes understanding of the plan. Jeimy Duong RPh Clinical Pharmacist, Pharmacy Anticoagulation Clinic Pharmacy Anticoagulation Clinic Pager: [phone]. documented in this encounterCleveland Clinic [facility]06-06-2023 Instructions* Patient Instructions* Marta Palacio Ma - 08/26/2022 1:36 PM EDT Please check your medications when you get home and make sure that your medications match our list. documented in this encounterCleveland Clinic [facility]06-06-2023 History of Present illness Narrative* Stas Mora MD - 08/26/2022 1:20 PM EDT Medical B eligibilty date 1999 Date of last exam 09/05/2021 PAST MEDICAL HISTORY Diagnosis Date Coronary atherosclerosis of unspecified type of vessel, pauma or graft Coronary artery disease Other and unspecified hyperlipidemia Unspecified essential hypertension Essential hypertension PAST SURGICAL HISTORY Procedure Laterality Date APPENDECTOMY PERC TRANSL COR ANGIO 2006 last time Percutaneous Transluminal Coronary Angio Status 3 procedures Patient has no known allergies. Current Outpatient Medications Medication Sig warfarin (COUMADIN) 2.5 mg tablet TAKE 5 MG EVERY MON, DIXIE 2.5 MG ALL OTHER DAYS atorvastatin (LIPITOR) 40 mg tablet Take 1 tablet by mouth daily at bedtime. lisinopril (ZESTRIL, PRINIVIL) 10 mg tablet Take 1 tablet by mouth once daily. aspirin 81 mg chewable tablet Take 1 tablet by mouth once daily. fosinopril (MONOPRIL) 10 mg tablet Take 1 tablet by mouth once daily. No current facility-administered medications for this visit. Medications reviewed: Yes FAMILY HISTORY Problem Relation Age of Onset Arthritis Mother Alcohol/Drug Father Stroke Father Cancer Brother 50 Stomach cancer Social History Tobacco Use Smoking status: Former Smokeless tobacco: Never Tobacco comments: 30 yaers ago Substance Use Topics Alcohol use: No Drug use: No Roby likes to exercise by walking a mile, takes him about 30 minutes. He watches his diet for sodium, low fat and low cholesterol some of the time. List of current specialists seen: Dr. Bobby [facility] Pharmacist manage INR End of Live Planning discussed including patients advanced directive wishes: Yes I am willing to follow Roby advanced directives. Depression screen He in the past two weeks denies having felt down, depressed, hopeless, or with little interest or pleasure in doing things. Depression screening tool completed and reviewed. Based on score and interview, patient is not at risk for depression. Screening tool discussed with patient, and I recommendedno further intervention at this time. Functional Ability/Safety Screen 1. Was the patient's timed Up and Go test unsteady or longer than 30 seconds? Yes 2. Does the patient need help with the phone, transportation, shopping,preparing meals, housework, laundry, medications or managing money? No 3. Does your home have rungs in the hallway, lack of grab bars in the bathroom, lack of handrails on the stairs or have poor lighting? Yes Hearing Evaluation: wears hearing aids and normal PHYSICAL EXAM BP 122/74 Pulse 66 Resp 16 Ht 180.3 cm (5' 11) Wt 78.7 kg (173 lb 9.6 oz) BMI 24.21 kg/m Visual acuity: OD: 20/25 OS: 20/ 25 OU: 20/25 No glasses CV: Irregular Lungs: Clear ASSESSMENT/PLAN: 1. Encounter for Medicare annual wellness exam - ICD9: V70.0, ICD10: Z00.00 (primary diagnosis) - Counseled on healthy diet and regular exercise - Depression screening tool completed and reviewed with patient. Based on score and interview, patient is not at risk for depression and recommended no further intervention at this time. - Follow up for annual exam in one year 2. Paroxysmal atrial fibrillation (HCC) - ICD9: 427.31, ICD10: I48.0 Stable Continue current medications. 3. Essential hypertension, benign - ICD9: 401.1, ICD10: I10 - Controlled - Continue current medications - Recommend regular aerobic exercise 4. Hyperlipidemia, unspecified hyperlipidemia type - ICD9: 272.4, ICD10: E78.5 - Controlled - Continue current medications - Counseled on healthy diet and regular exercise Follow up in 6 months for follow up with labs I agree with the Chief Complaint, ROS, and Past Histories independently gathered by the clinical patient support tech and the remaining scribed note accurately describes my personal service to the patient. Stas Mora MD The documentation for this note was completed by Marta Palacio Ma acting as scribe for Stas Mora MD. August 26, 2022 1:17 PM. Marta Palacio Ma documented in this encounterCleveland Clinic [facility]06-02-2023 Miscellaneous Notes* Telephone Encounter - Senia Alan [facility] - 08/22/2022 2:50 PM EDT [facility] Ambulatory Pharmacy Anticoagulation Clinic Anticoagulation Episode Summary Anticoagulation Care Providers Provider Role Specialty Phone number Stas Mora MD Referring Family Medicine [phone] Roby Flores is a 87 year old year old male patient being evaluated today for a Telemanagement visit. Patient is currently on the following anticoagulant(s) Warfarin. Labs PT INR (no units) Date Value 05/19/2022 1.7 05/15/2021 2.3 04/17/2021 1.9 INR (no units) Date Value 08/15/2022 2.4 08/01/2022 1.8 07/18/2022 2.1 Hemoglobin (g/dL) Date Value 08/15/2022 12.6 Hematocrit (%) Date Value 08/15/2022 40.0 Platelet Count (k/uL) Date Value 08/15/2022 229 Creatinine (mg/dL) Date Value 08/15/2022 0.89 02/21/2022 0.85 12/06/2021 0.80 03/13/2021 0.80 08/28/2020 0.83 Bilirubin, Total (mg/dL) Date Value 08/15/2022 0.9 03/13/2021 0.5 ALT (U/L) Date Value 08/15/2022 14 03/13/2021 24 AST (U/L) Date Value 08/15/2022 23 03/13/2021 24 CrCl cannot be calculated (Unknown ideal weight.). 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 Paroxysmal atrial fibrillation (hcc) Anticoagulation Episode Summary Current INR goal: 2.0-3.0 Assessment: INR result of 2.4 is therapeutic Plan: Current Warfarin Dosing As of 08/22/2022 Full warfarin instructions: 3.75 mg every Fri; 2.5 mg all other days [facility] [employer] Records message Advised patient to continue current weekly dose as noted above Next lab INR check scheduled on 08/29/2022 Senia Phillips RPh Clinical Pharmacist, Pharmacy Anticoagulation Clinic Pharm[facility] Pager: [phone]. documented in this encounterCleveland [facility]04-28-2023 Miscellaneous Notes* Telephone Encounter - Senia Phillips RPh - 07/18/2022 3:29 PM EDT [facility] Anticoagulation Episode Summary Anticoagulation Care Providers Provider Role Specialty Phone number Stas Mora MD Referring Family Medicine [phone] Roby Flores is a 86 year old year old male patient being evaluated today for a Telemanagement visit. Patient is currently on the following anticoagulant(s) Warfarin. Labs PT INR (no units) Date Value 05/19/2022 1.7 05/15/2021 2.3 04/17/2021 1.9 INR (no units) Date Value 07/18/2022 2.1 07/04/2022 1.6 06/20/2022 2.9 Hemoglobin (g/dL) Date Value 02/21/2022 14.5 Hematocrit (%) Date Value 02/21/2022 44.1 Platelet Count (k/uL) Date Value 02/21/2022 233 Creatinine (mg/dL) Date Value 02/21/2022 0.85 12/06/2021 0.80 07/08/2021 0.81 03/13/2021 0.80 08/28/2020 0.83 Bilirubin, Total (mg/dL) Date Value 02/21/2022 0.5 03/13/2021 0.5 ALT (U/L) Date Value 02/21/2022 84 03/13/2021 24 AST (U/L) Date Value 02/21/2022 47 03/13/2021 24 Estimated Creatinine Clearance: 67.2 mL/min (based on SCr of 0.85 mg/dL). 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 Paroxysmal atrial fibrillation (hcc) Anticoagulation Episode Summary Current INR goal: 2.0-3.0 Assessment: INR result of 2.1 is therapeutic Plan: Current Warfarin Dosing As of 07/18/2022 Full warfarin instructions: 2.5 mg every day [employer] Records message Advised patient to continue current weekly dose as noted above Next lab INR check scheduled on 08/01/2022 Senia Phillips riya Clinical Pharmacist, Pharmacy Anticoagulation Clinic Pharmacy An[facility] Pager: [phone]. documented in this encounterCleveland [facility]04-14-2023 Miscellaneous Notes* Telephone Encounter - Lety Gandara RPh - 07/04/2022 3:46 PM EDT [facility] Amb[facility] Anticoagulation Episode Summary Anticoagulation Care Providers Provider Role Specialty Phone number Stas Mora MD Referring Family Medicine [phone] Roby Flores is a 86 year old year old male patient being evaluated today for a Lab INR. Patient is currently on the following anticoagulant(s) Warfarin. Labs PT INR (no units) Date Value 05/19/2022 1.7 05/15/2021 2.3 04/17/2021 1.9 INR (no units) Date Value 07/04/2022 1.6 06/20/2022 2.9 06/06/2022 2.6 Hemoglobin (g/dL) Date Value 02/21/2022 14.5 Hematocrit (%) Date Value 02/21/2022 44.1 Platelet Count (k/uL) Date Value 02/21/2022 233 Creatinine (mg/dL) Date Value 02/21/2022 0.85 12/06/2021 0.80 07/08/2021 0.81 03/13/2021 0.80 08/28/2020 0.83 Bilirubin, Total (mg/dL) Date Value 02/21/2022 0.5 03/13/2021 0.5 ALT (U/L) Date Value 02/21/2022 84 03/13/2021 24 AST (U/L) Date Value 02/21/2022 47 03/13/2021 24 Estimated Creatinine Clearance: 67.2 mL/min (based on SCr of 0.85 mg/dL). ALLERGIES No Known Allergies 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: [facility] current us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 Paroxysmal atrial fibrillation (hcc) Anticoagulation Episode Summary Current INR goal: 2.0-3.0 Assessment: Spoke to Maria Guadalupe after confirming pt INR result of 1.6 is SUBtherapeutic due to: No obvious cause The patient caregiver denies he has had liver, green tea, new supplements, an increase in vit K foods, any changes with the Coumadin tablet, or missed doses. Plan: Current Warfarin Dosing As of 07/04/2022 Full warfarin instructions: 07/04: 3.75 mg; Otherwise 2.5 mg every day Called and spoke to patient/caregiver Maria Guadalupe Advised patient to increase dose for 1 day only then resume weekly regimen Next lab INR check scheduled on 07/18/2022 appt booked for 8:30 am Patient's caregiver verbalizes understanding of the plan. Patient denies need for refills. Lety Gandara, Formerly [facility] Clinical Pharmacist, Pharmacy Anticoagulation Clinic Pharmacy Anticoagulation Clinic Pager: [phone]. documented in this encounterCleveland [facility]04-03-2023 Miscellaneous Notes* Telephone Encounter - Elvis Kearney APRN.CNP - 06/23/2022 10:17 AM EDT The following approved medication requests have been transmitted electronically. Requested Prescriptions Pending Prescriptions Disp Refills warfarin (COUMADIN) 2.5 mg tablet [Pharmacy Med Name: WARFARIN SODIUM 2.5 MG TABLET] 135 tablet 3 Sig: TAKE 5 MG EVERY MON, DIXIE 2.5 MG ALL OTHER DAYS Elvis Kearney APRN.CNP documented in this encounterCleveland Clinic [facility]03-31-2023 Miscellaneous Notes* Telephone Encounter - Senia Phillips RPh - 06/20/2022 4:46 PM EDT [facility] Clinic Anticoagulation Episode Summary Anticoagulation Care Providers Provider Role Specialty Phone number Stas Mora MD Referring Family Medicine [phone] Roby Flores is a 86 year old year old male patient being evaluated today for a Telemanagement visit. Patient is currently on the following anticoagulant(s) Warfarin. Labs PT INR (no units) Date Value 05/19/2022 1.7 05/15/2021 2.3 04/17/2021 1.9 INR (no units) Date Value 06/20/2022 2.9 06/06/2022 2.6 05/30/2022 4.8 Hemoglobin (g/dL) Date Value 02/21/2022 14.5 Hematocrit (%) Date Value 02/21/2022 44.1 Platelet Count (k/uL) Date Value 02/21/2022 233 Creatinine (mg/dL) Date Value 02/21/2022 0.85 12/06/2021 0.80 07/08/2021 0.81 03/13/2021 0.80 08/28/2020 0.83 Bilirubin, Total (mg/dL) Date Value 02/21/2022 0.5 03/13/2021 0.5 ALT (U/L) Date Value 02/21/2022 84 03/13/2021 24 AST (U/L) Date Value 02/21/2022 47 03/13/2021 24 Estimated Creatinine Clearance: 67.2 mL/min (based on SCr of 0.85 mg/dL). 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 Paroxysmal atrial fibrillation (hcc) Anticoagulation Episode Summary Current INR goal: 2.0-3.0 Assessment: INR result of 2.9 is therapeutic Plan: Current Warfarin Dosing As of 06/20/2022 Full warfarin instructions: 2.5 mg every day Called and was unable to leave voice message - voicemailbox was for Maria Guadalupe, wasn't sure if ok to leave message Sent [employer] message Advised patient to continue current weekly dose as noted above Next lab INR check scheduled on 07/04/2022 Senia Phillips RPh Clinical Pharmacist, Pharmacy Anticoagulation Clinic Pharmacy Anticoagulation Clinic Pager: [phone]. documented in this encounterCleveland [facility]03-17-2023 Miscellaneous Notes* Telephone Encounter - Senia Phillips RPh - 06/06/2022 4:18 PM EDT [facility] Amb[facility] Anticoagulation Clinic Anticoagulation Episode Summary Anticoagulation Care Providers Provider Role Specialty Phone number Stas Mora MD Referring Family Medicine [phone] Roby Flores is a 86 year old year old male patient being evaluated today for a Telemanagement visit. Patient is currently on the following anticoagulant(s) Warfarin. Labs PT INR (no units) Date Value 05/19/2022 1.7 05/15/2021 2.3 04/17/2021 1.9 INR (no units) Date Value 06/06/2022 2.6 05/30/2022 4.8 05/19/2022 1.7 Hemoglobin (g/dL) Date Value 02/21/2022 14.5 Hematocrit (%) Date Value 02/21/2022 44.1 Platelet Count (k/uL) Date Value 02/21/2022 233 Creatinine (mg/dL) Date Value 02/21/2022 0.85 12/06/2021 0.80 07/08/2021 0.81 03/13/2021 0.80 08/28/2020 0.83 Bilirubin, Total (mg/dL) Date Value 02/21/2022 0.5 03/13/2021 0.5 ALT (U/L) Date Value 02/21/2022 84 03/13/2021 24 AST (U/L) Date Value 02/21/2022 47 03/13/2021 24 Estimated Creatinine Clearance: 67.2 mL/min (based on SCr of 0.85 mg/dL). ALLERGIES No Known Allergies 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: [facility] current us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 Paroxysmal atrial fibrillation (hcc) Anticoagulation Episode Summary Current INR goal: 2.0-3.0 Assessment: INR result of 2.6 is therapeutic Plan: Current Warfarin Dosing As of 06/06/2022 Full warfarin instructions: 2.5 mg every day [facility] [employer] Records message Advised patient to continue current weekly dose as noted above Next lab INR check scheduled on 06/20/2022 Senia Phillips RPh Clinical Pharmacist, Pharmacy Anticoagulation Clinic Pharmacy Anticoagulation Clinic Pager: [phone]. documented in this encounterCleveland [facility]03-10-2023 Miscellaneous Notes* Telephone Encounter - Neeru Rice LPN - 05/30/2022 3:02 PM EST Pharmacists manage INR documented in this encounterCleveland Clinic [facility]03-02-2023 Miscellaneous Notes* Telephone Encounter - Halina Alfaro LPN - 05/22/2022 8:51 AM EST Patient notified spouse of results, verbalizes understanding of instructions. She will tell Pt. Halina Alfaro LPN * Telephone Encounter - Jenna Fitzpatrick APRN.SHEMAR - 05/22/2022 7:15 AM EST Can you please call the patient and let him know that I reviewed his x-ray results. X-ray does not show any dislocation or fracture. 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 I would recommend that he continue supportive care at home, pain should improve over time. Continue to use Tylenol as needed and ice to the area. Please let me know if he has any questions. Thank you. Jenna Fitzpatrick APRN.SHIRT FOLDING MACHINE OPERATOR documented in this encounterCleveland Clinic [facility]03-01-2023 Miscellaneous Notes* Telephone Encounter - Judy Matos RN - 05/21/2022 12:32 PM EST Reason for call: Hip injury (right) Outcome: 24 hour recommendation, care advice given, patient verbalized understanding. Conferenced Significant other to appointment center for scheduling. Reason for Disposition [1] High-risk adult (e.g., age > 60 years, osteoporosis, chronic steroid use) AND [2] limping Followed a hip injury Answer Assessment - Initial Assessment Questions 1. MECHANISM: trip and fall in the bathroom, landing on right hip. Denies head injury, loss of consciousness. + blood thinners (Coumadin) 2. ONSET: 05/20 at 6000 3. LOCATION: right hip 4. APPEARANCE of INJURY: Significant other denies swelling, hematoma, wounds 5. SEVERITY: Patient can stand, very painful to walk 6. SIZE: na 7. PAIN: 3/10 at rest, 8/10 with walking--steady pain, ache 8. TETANUS: na 9. OTHER SYMPTOMS: weakness in right hip/leg 10. : na Protocols used: Hip [id number], Hip [id number] documented in this encounterCleveland Clinic [facility]03-01-2023 Miscellaneous Notes* Telephone Encounter - Fani Grace RN - 05/21/2022 12:22 PM EST Patient disconnected during transferred, called multiple time with no answer. documented in this encounterCleveland Clinic [facility]02-27-2023 Miscellaneous Notes* Telephone Encounter - Paige Hickman RPh - 05/19/2022 4:31 PM EST Spoke with patient and provided dosing instructions and next INR date. * Telephone Encounter - Oliva Westbrook LPN - 05/19/2022 4:15 PM EST Patient calling to ask for his coumadin instructions please. * Telephone Encounter - Franca Cohen LPN - 05/19/2022 3:42 PM EST Last INR: PT INR 1.7 05/19/2022 Current dose of coumadin is: Coumadin 2.5 every day. Last date of dose change: unknown. Previous INR (date and result): 05/02/22 2.1 Additional Clinical Information or narrative: no, denies any problems with bleeding, bruising, change in diet, has not missed any doses. Pt called in for results. Please call back with instructions. Franca Cohen LPN documented in this encounterCleveland Clinic [facility]02-24-2023 Miscellaneous Notes* Telephone Encounter - Senia Phillips RPh - 05/16/2022 5:10 PM EST Patient due to test INR today. Will continue to monitor for results. Senia Phillips RPh documented in this encounterCleveland Clinic [facility]02-10-2023 Miscellaneous Notes* Telephone Encounter - Senia Phillips RPh - 05/02/2022 3:06 PM EST [facility] Ambulatory Pharmacy Anticoagulation Clinic Anticoagulation Episode Summary Anticoagulation Care Providers Provider Role Specialty Phone number Stas Mora MD Referring Family Medicine [phone] Roby Flores is a 86 year old year old male patient being evaluated today for a Telemanagement visit. Patient is currently on the following anticoagulant(s) Warfarin. Labs PT INR (no units) Date Value 05/15/2021 2.3 04/17/2021 1.9 03/13/2021 Test sent to [facility]. INR (no units) Date Value 05/02/2022 2.1 04/18/2022 2.4 04/04/2022 3.3 Hemoglobin (g/dL) Date Value 02/21/2022 14.5 Hematocrit (%) Date Value 02/21/2022 44.1 Platelet Count (k/uL) Date Value 02/21/2022 233 Creatinine (mg/dL) Date Value 02/21/2022 0.85 12/06/2021 0.80 07/08/2021 0.81 03/13/2021 0.80 08/28/2020 0.83 Bilirubin, Total (mg/dL) Date Value 02/21/2022 0.5 03/13/2021 0.5 ALT (U/L) Date Value 02/21/2022 84 03/13/2021 24 AST (U/L) Date Value 02/21/2022 47 03/13/2021 24 Estimated Creatinine Clearance: 68.3 mL/min (based on SCr of 0.85 mg/dL). 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 Paroxysmal atrial fibrillation (hcc) Anticoagulation Episode Summary Current INR goal: 2.0-3.0 Assessment: INR result of 2.1 is therapeutic Plan: Current Warfarin Dosing As of 05/02/2022 Full warfarin instructions: 2.5 mg every day Sent [employer] Records message Advised patient to continue current weekly dose as noted above Next lab INR check scheduled on 05/16/2022 Senia Phillips RPh Clinical Pharmacist, Pharmacy Anticoagulation Clinic Pharmacy Anticoagulation Clinic Pager: [phone]. documented in this encounterCleveland Clinic [facility]01-27-2023 Miscellaneous Notes* Telephone Encounter - Senia Phillips RPh - 04/18/2022 4:25 PM EST [facility] Ambulatory [facility] Anticoagulation Clinic Anticoagulation Episode Summary Anticoagulation Care Providers Provider Role Specialty Phone number Stas Mora MD Referring Family Medicine [phone] Roby Flores is a 86 year old year old male patient being evaluated today for a Telemanagement visit. Patient is currently on the following anticoagulant(s) Warfarin. Labs PT INR (no units) Date Value 05/15/2021 2.3 04/17/2021 1.9 03/13/2021 Test sent to [facility]. INR (no units) Date Value 04/18/2022 2.4 04/04/2022 3.3 03/21/2022 2.9 Hemoglobin (g/dL) Date Value 02/21/2022 14.5 Hematocrit (%) Date Value 02/21/2022 44.1 Platelet Count (k/uL) Date Value 02/21/2022 233 Creatinine (mg/dL) Date Value 02/21/2022 0.85 12/06/2021 0.80 07/08/2021 0.81 03/13/2021 0.80 08/28/2020 0.83 Bilirubin, Total (mg/dL) Date Value 02/21/2022 0.5 03/13/2021 0.5 ALT (U/L) Date Value 02/21/2022 84 03/13/2021 24 AST (U/L) Date Value 02/21/2022 47 03/13/2021 24 Estimated Creatinine Clearance: 68.3 mL/min (based on SCr of 0.85 mg/dL). ALLERGIES No Known Allergies 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: [facility] current us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 Paroxysmal atrial fibrillation (hcc) Anticoagulation Episode Summary Current INR goal: 2.0-3.0 Assessment: INR result of 2.4 is therapeutic Plan: Current Warfarin Dosing As of 04/18/2022 Full warfarin instructions: 2.5 mg every day; Starting 04/18/2022 Sent [facility] [employer] Records message Advised patient to continue current weekly dose as noted above Next lab INR check scheduled on 05/02/2022 Senia Phillips RPh Clinical Pharmacist, Pharmacy Anticoagulation Clinic Pharmacy Anticoagulation Clinic Pager: [phone]. documented in this encounterCleveland Clinic [facility]01-13-2023 Miscellaneous Notes* Telephone Encounter - Elise Paredes [facility] - 04/04/2022 4:09 PM EST [facility] Ambulatory Pharmacy Anticoagulation Clinic Anticoagulation Episode Summary Anticoagulation Care Providers Provider Role Specialty Phone number Stas Mora MD Referring Family Medicine [phone] Roby Flores is a 86 year old year old male patient being evaluated today for a Lab INR. Patient is currently on the following anticoagulant(s) Warfarin. Labs PT INR (no units) Date Value 05/15/2021 2.3 04/17/2021 1.9 03/13/2021 Test sent to [facility]. INR (no units) Date Value 04/04/2022 3.3 03/21/2022 2.9 03/07/2022 4.1 Hemoglobin (g/dL) Date Value 02/21/2022 14.5 Hematocrit (%) Date Value 02/21/2022 44.1 Platelet Count (k/uL) Date Value 02/21/2022 233 Creatinine (mg/dL) Date Value 02/21/2022 0.85 12/06/2021 0.80 07/08/2021 0.81 03/13/2021 0.80 08/28/2020 0.83 Bilirubin, Total (mg/dL) Date Value 02/21/2022 0.5 03/13/2021 0.5 ALT (U/L) Date Value 02/21/2022 84 03/13/2021 24 AST (U/L) Date Value 02/21/2022 47 03/13/2021 24 Estimated Creatinine Clearance: 68.3 mL/min (based on SCr of 0.85 mg/dL). 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 Paroxysmal atrial fibrillation (hcc) Anticoagulation Episode Summary Current INR goal: 2.0-3.0 Assessment: INR result of 3.3 is SUPRAtherapeutic due to: unknown cause - did not speak to patient Plan: Current Warfarin Dosing As of 04/04/2022 Full warfarin instructions: 2.5 mg every day; Starting 04/04/2022 Left voice message Advised patient to decrease dose for 1 day only then resume weekly regimen Next lab INR check scheduled on 04/18/2022 as appears patient has been getting labs every 2 weeks Elise Paredes [facility] Clinical Pharmacist, Pharmacy Anticoagulation Clinic Pharmacy Anticoagulation Clinic Pager: [phone]. documented in this encounterCleveland Clinic [facility]01-09-2023 Miscellaneous Notes* Telephone Encounter - Rosie Cruz Ma - 03/31/2022 5:12 PM EST Office received continuity of care paperwork from the [facility] requesting pt's last OV, labs and Imm. PerPCP okay to fax back requested records. Faxed back to [facility] at F#: [phone]. Rosie Cruz Ma documented in this encounterCleveland Clinic [facility]12-30-2022 Miscellaneous Notes* Telephone Encounter - Carmelina Cruz [facility] - 03/21/2022 4:05 PM EST [facility] Ambulatory Pharmacy Anticoagulation Clinic Anticoagulation Episode Summary Anticoagulation Care Providers Provider Role Specialty Phone number Stas Mora MD Referring Family Medicine [phone] Roby Flores is a 86 year old year old male patient being evaluated today for a Telemanagement visit. Patient is currently on the following anticoagulant(s) Warfarin. Labs PT INR (no units) Date Value 05/15/2021 2.3 04/17/2021 1.9 03/13/2021 Test sent to [facility]. INR (no units) Date Value 03/21/2022 2.9 03/07/2022 4.1 02/21/2022 2.0 Hemoglobin (g/dL) Date Value 02/21/2022 14.5 Hematocrit (%) Date Value 02/21/2022 44.1 Platelet Count (k/uL) Date Value 02/21/2022 233 Creatinine (mg/dL) Date Value 02/21/2022 0.85 12/06/2021 0.80 07/08/2021 0.81 03/13/2021 0.80 08/28/2020 0.83 Bilirubin, Total (mg/dL) Date Value 02/21/2022 0.5 03/13/2021 0.5 ALT (U/L) Date Value 02/21/2022 84 03/13/2021 24 AST (U/L) Date Value 02/21/2022 47 03/13/2021 24 Estimated Creatinine Clearance: 68.3 mL/min (based on SCr of 0.85 mg/dL). 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 Paroxysmal atrial fibrillation (hcc) Anticoagulation Episode Summary Current INR goal: 2.0-3.0 Assessment: INR result of 2.9 is therapeutic Plan: Current Warfarin Dosing As of 03/21/2022 Full warfarin instructions: 2.5 mg every day; Starting 03/21/2022 Sent Group Therapy Records message Advised patient to continue current weekly dose as noted above Next home INR check scheduled on 04/04/2022 Carmelina Cruz RPh Clinical Pharmacist, Pharmacy Anticoagulation Clinic Pharmacy Anticoagulation Clinic Pager: [phone]. * Telephone Encounter - Carmelina Cruz RPh - 03/21/2022 3:12 PM EST Patient due to test INR today. Will continue to monitor for results. Carmelina Cruz RPh documented in this encounterCleveland Clinic [facility]12-02-2022 Miscellaneous Notes* Telephone Encounter - Oliva Westbrook LPN - 02/21/2022 2:58 PM EST Last INR: PT INR 2.0 02/21/2022 Current dose of coumadin is: 2.5 mg daily Last date of dose change: not known . Previous INR (date and result): 3.1 on 02/07/2022 Additional Clinical Information or narrative: no changes, no missed doses, no antibiotics, no bruising or bleeding issues, his diet was out of control for Thanksgiving ate whatever he wanted to. documented in this encounterCleveland Clinic [facility]10-31-2022 Miscellaneous Notes* Telephone Encounter - Paige Hickman RPh - 01/20/2022 3:55 PM EDT [facility] Ambulatory Pharmacy Anticoagulation Clinic Anticoagulation Episode Summary Anticoagulation Care Providers Provider Role Specialty Phone number Stas Mora MD Referring Family Medicine [phone] Roby Flores is a 86 year old year old male patient being evaluated today for a Telemanagement visit. Patient is currently on the following anticoagulant(s) Warfarin. Labs PT INR (no units) Date Value 05/15/2021 2.3 04/17/2021 1.9 03/13/2021 Test sent to [facility]. INR (no units) Date Value 01/20/2022 1.7 01/17/2022 5.7 01/03/2022 2.4 Estimated Creatinine Clearance: 72.8 mL/min (based on SCr of 0.8 mg/dL). ALLERGIES No Known Allergies 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: Anticoagulation Episode Summary Current INR goal: 2.0-3.0 Assessment: INR result of 1.7 is SUBtherapeutic due to: held doses. Plan: Current Warfarin Dosing As of 01/20/2022 Full warfarin instructions: 2.5 mg every day Left voice message Advised patient to restart warfarin today - 2.5 mg daily Next INR check due on 01/27/2022 Patient instructed to call [facility] at [phone] with any questionsor concerns. Paige Hickman RPh Clinical Pharmacist, Pharmacy Anticoagulation Clinic Pharmacy Anticoagulation Clinic Pager: [phone] documented in this encounterCleveland Clinic [facility]10-28-2022 Miscellaneous Notes* Telephone Encounter - Senia Phillips RPh - 01/17/2022 5:27 PM EDT Follow up with INR result on Thursday, 01/20. Senia Phillips PharmD, BCPS * Telephone Encounter - Oliva Westbrook LPN - 01/17/2022 4:51 PM EDT Patient returned call and went over notes from Dr Mora, hold coumadin, do not take coumadin, recheck INR on Thursday, INR was high 5.7 this time, with patient understanding. * Telephone Encounter - Elana Valdes RN - 01/17/2022 4:39 PM EDT Called and left a voicemail for the Patient to call back and ask for a nurse to receive the providers message. Sent information as a [employer] message as well. Elana Valdes RN * Telephone Encounter - Stas Mora MD - 01/17/2022 4:25 PM EDT Hold coumadin Recheck INR on Thursday Stas Mora MD * Telephone Encounter - Rosie Cruz Ma - 01/17/2022 4:24 PM EDT Routing INR high priority to Pharmacy who manages pt's Coumadin. PCP will review and advise. Rosie Cruz Ma * Telephone Encounter - Stas Mora MD - 01/17/2022 3:54 PM EDT * Telephone Encounter - Enedelia Ibanez LPN - 01/17/2022 3:45 PM EDT Last INR: PT INR 5.7 01/17/2022 Attempted to contact patient with no answer at [phone]. Current dose of coumadin is: 2.5 mg every day . Previous INR (date and result): 01/03/22 2.4 documented in this encounterCleveland Clinic [facility]10-24-2022 Miscellaneous Notes* Telephone Encounter - Jenna Fitzpatrick APRN.CNP - 01/13/2022 1:54 PM EDT The following approved medication requests have been transmitted electronically. Requested Prescriptions Pending Prescriptions Disp Refills atorvastatin (LIPITOR) 40 mg tablet 90 tablet 3 Sig: Take 1 tablet by mouth daily at bedtime. lisinopril (ZESTRIL, PRINIVIL) 10 mg tablet 90 tablet 3 Sig: Take 1 tablet by mouth once daily. aspirin 81 mg chewable tablet 90 tablet 3 Sig: Take 1 tablet by mouth once daily. Jenna Fitzpatrick APRN.SHEMAR * Telephone Encounter - López Mckenna LPN - 01/13/2022 1:38 PM EDT Patient phones requesting refills as follows: Requested Prescriptions Pending Prescriptions Disp Refills atorvastatin (LIPITOR) 40 mg tablet 90 tablet 3 Sig: Take 1 tablet by mouth daily at bedtime. lisinopril (ZESTRIL, PRINIVIL) 10 mg tablet 90 tablet 3 Sig: Take 1 tablet by mouth once daily. FARZANA 12/26/21 NOV 03/10/22 Please review and advise. López Mckenna LPN documented in this encounterCleveland [facility]10-14-2022 Miscellaneous Notes* Telephone Encounter - Senia Phillips RPh - 01/03/2022 4:11 PM EDT [facility] Amb[facility] An[facility] Clinic Anticoagulation Episode Summary Anticoagulation Care Providers Provider Role Specialty Phone number Stas Mora MD Referring Family Medicine [phone] Roby Flores is a 86 year old year old male patient being evaluated today for a Telemanagement visit. Patient is currently on the following anticoagulant(s) Warfarin. Labs PT INR (no units) Date Value 05/15/2021 2.3 04/17/2021 1.9 03/13/2021 Test sent to [facility]. INR (no units) Date Value 01/03/2022 2.4 12/20/2021 2.1 12/06/2021 3.8 Hemoglobin (g/dL) Date Value 07/08/2021 15.9 Hematocrit (%) Date Value 07/08/2021 49.5 Platelet Count (k/uL) Date Value 07/08/2021 235 Creatinine (mg/dL) Date Value 12/06/2021 0.80 07/08/2021 0.81 03/13/2021 0.80 08/28/2020 0.83 Bilirubin, Total (mg/dL) Date Value 12/06/2021 0.4 03/13/2021 0.5 ALT (U/L) Date Value 12/06/2021 17 03/13/2021 24 AST (U/L) Date Value 12/06/2021 23 03/13/2021 24 Estimated Creatinine Clearance: 72.8 mL/min (based on SCr of 0.8 mg/dL). 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 Paroxysmal atrial fibrillation (hcc) Anticoagulation Episode Summary Current INR goal: 2.0-3.0 Assessment: INR result of 2.4 is therapeutic Plan: Current Warfarin Dosing As of 01/03/2022 Full warfarin instructions: 2.5 mg every day Sent Group Therapy Records message Advised patient to continue current weekly dose as noted above Next lab INR check scheduled on 01/17/2022 Senia Phillips RPh Clinical Pharmacist, Pharmacy Anticoagulation Clinic Pharmacy Antico[facility] Clinic Pager: [phone]. documented in this encounterCleveland Clinic [facility]10-14-2022 Miscellaneous Notes* Telephone Encounter - Marta Palacio Ma - 01/03/2022 10:49 AM EDT Pt notified of results via Group Therapy Records. Marta Palacio Ma * Telephone Encounter - Stas Mora MD - 01/02/2022 6:07 PM EDT Please notify patient that his thyroid ultrasound looks OK, the nodules are all small, appear normal, and do not need any further evaluation pr follow up. Stas Mora MD documented in this encounterCleveland Clinic [facility]10-06-2022 History of Present illness Narrative* Stas Mora MD - 12/26/2021 11:20 AM EDT Chief Complaint Patient presents with: [facility] F/U [facility] Roby Flores is a 86 year old male who presents here today for Hospital Discharge Follow up. Here with . Pt stated he was putting new steps on the deck and when he got done he walked around the side of the deck, started cleaning up and started feeling dizzy. He grabbed on to the deck and started to go down, he was not able to get up due to his right leg feeling weak. It took him about 20 minutes to get up and he walked over to the swing and sat down until his came home. noticed right away that something was wrong because his right side mouth was drooping. He used the pole of the swing topull himself up but he was not able to put his arm around , they managed to get him to the car and then to the ER. Pt feels he had the sx for about 1-2 hours. Pt was admitted to [facility] ER 12/21/21 with stroke sx however sx resolved while in ER. CT and MRI unremarkable for CVA. BP was elevated so he was advised to start Lisinopril 10 mg daily and Lipitor 40 mg daily and continue with Aspirin and coumadin. He was discharged home on 12/22/21. There was note of incidental finding of thyroid nodules on CT scan with recommendation of outpatient follow- up with anultrasound. Pt TSH was normal at 0.42. He states he feels ok. Energy level is ok, appetite ok. Denies any further issues with stroke like sx. Has not been checking his BP at home. No chest pains, dizziness, or SOB. states that his BPwas down to 140/80 range when he was discharged home. Facial drooping has resolved. Has had a fall in the last year. Below copied from [facility]: HPI History of Present Illness Chief Complaint: Stroke Alert Informant: patient and spouse/S.O. Onset/Context/Timing Onset: Today Context: Sudden Onset Timing: Continuous Quality and Location: Positive for Right Facial Droop and Slurred Speech Current Severity: Mild Maximum Severity: Moderate Associated Symptoms Associated Symptoms: Positive for Headache; Negative for Nausea, Vomiting or Chest Pain Narrative Narrative: Male history of CAD with 4 cardiac stents on Coumadin. was not at home and he was working in the yard. She states she came home in about 5:00 she realized that he was in the backyard Stingose when she went to check on him and states that he was not acting normally she thought he had a right-sided facial droop and trouble with his speech and possibly weak on the right side. Most of that is resolved. She states he had a headache 2 days ago. No recent falls. He has never had a stroke or mini stroke. He is definitely improving from the symptoms he had at home. Physical Exam Narrative Exam Narrative: 86-year-old male vital signs stable afebrile does not look septic toxic. H EENT exam is right side of his face does droop a little bit when he smiles both corners of his mouth go up. Pupils round reactive light his motions are intact. He has normal sensation bilaterally. Tongue is midline. Normal speech. No signs of trauma. Neck nontender. No lymphadenopathy. Lungs are clear. Heart regular rate and rhythm rate about 80 no murmur. Chest were nontender. Abdomen soft nontender. Moving all 4 extremities. He has 5 out of 5 group chief operator strength bilaterally. Dorsi and plantar flexion intact. He can raise either arm or leg and there is no drift. He is speaking normally. At worst he has an NIH of 1. That would be for possible right-sided facial droop but there is no paralysis. Date of Admission: 12/21/21 Primary Care Physician: Dr. Stas Mora MD Reason For Visit: TIA Diagnosis Discharge Diagnosis (1) Stroke-like symptoms: Status: Acute Code(s): R29.90 - Unspecified symptoms and signs involving the nervous system (2) TIA (transient ischemic attack): Status: Acute Code(s): G45.9 - Transient cerebral ischemic attack, unspecified (3) Chronic anticoagulation: Status: Acute Code(s): Z79.01 - 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 Medications at Discharge Home Medications warfarin 2.5 mg tablet 2.5 mg PO DAILY 10/06/17 aspirin 81 mg chewable tablet 81 mg PO BREAKFAST #30 tabs 12/22/21 atorvastatin 40 mg tablet 40 mg PO QHS #30 tabs 12/22/21 lisinopril 10 mg tablet 10 mg PO DAILY #30 tabs 12/22/21 Hospital Course Operations None Procedures None Summary of Care Provided Minutes Spent on Discharge: 36 Hospital Course: Per HPI: ROBY FLORES, is a 86 M with a significant history of; hypertension in dyslipidemia who presents to the emergency department with strokelike symptoms. Last known well before presentation was about 5 hours. When patient's significant other returned home patient was having expressive aphasia and right-sided weakness. Also he had a facial droop. Reportedly nurses had to pull patient from his vehicle when patient arrived to the ED. However while at the emergency department patient symptoms resolved. Hospital Course: 1. TIA/paroxysmal A. [id number] male presented with right-sided weakness and aphasia, this is completely resolved. He was started on aspirin and Lipitor, CT of the head and neck was unremarkableand CT of the brain was normal. He did have an MRI today which was negative and just showed normal aging. I discussed with him the plan for possible discharge today given the fact that his NIHs have been 0, and he expressed understanding of the risk benefits of going home and would like to go home today. His blood pressures have been a little bit elevated so I do recommend starting him on lisinopril 10 mg p.o. daily as well as continuing aspirin and Lipitor in the setting of his Coumadin, his INR was therapeutic. I do recommend following up with his PCP in 3 to 5 days after discharge. 2. Incidental thyroid nodules on CT scan recommend outpatient follow-up with an ultrasound, TSH is normal at 0.42 Falls Risk Intake: Patient age 65 or over, unsteady, or was advised to use special equipment to aid ambulation (i.e., cane or walker)? Yes Has the patient had two falls in the past year, or one with injury? Yes Does the patient need to use their hands when pushing up from chair, or hold onto furniture when ambulating at home? No Is the patient worried about falling? Yes Please inform patient that answering Yes to one or more of the questions above can increase theirrisk of falling Patient is at greater risk for falls. Falls Instruction: Teaching document below - reviewed and given to patient [facility] - FALLS Prevention Safety Plan Past medical history, appointments, medications, allergies reviewed. Previous Medical History PAST MEDICAL HISTORY Diagnosis Date Coronary atherosclerosis of unspecified type of vessel, pauma or graft Coronary artery disease Other and unspecified hyperlipidemia Unspecified essential hypertension Essential hypertension Previous Surgical History PAST SURGICAL HISTORY Procedure Laterality Date APPENDECTOMY PERC TRANSL COR ANGIO 2005 last time Percutaneous Transluminal Coronary Angio Status 3 procedures Family History FAMILY HISTORY Problem Relation Age of Onset Arthritis Mother Alcohol/Drug Father Stroke Father Cancer Brother 50 Stomach cancer Patient Allergies ALLERGIES No Known Allergies Current Medications Current Outpatient Medications on File Prior to Visit Medication Sig warfarin (COUMADIN) 2.5 mg tablet TAKE 5 MG EVERY MON, DIXIE 2.5 MG ALL OTHER DAYS fosinopril (MONOPRIL) 10 mg tablet Take 1 tablet by mouth once daily. ADULT ASPIRIN 81 MG CHEWABLE TAB Take one(1) tablet daily. No current facility-administered medications on file prior to visit. Social History Social History Tobacco Use Smoking status: Former Smokeless tobacco: Never Tobacco comments: 30 yaers ago Substance Use Topics Alcohol use: No Drug use: No EXAM: BP 142/80 Pulse (!) 58 Resp 16 Wt 78.6 kg (173 lb 3.2 oz) BMI 23.49 kg/m General Appearance: Well appearing, alert, in no acute distress, well-hydrated, well nourished.. Head: no facial drooping. Neck: Supple, no adenopathy; thyroid symmetric, normal size, no bruits. Lungs: Lungs clear to auscultation. No wheezing, rhonchi, rales.. Heart: RRR without murmur, gallop, or rubs. No ectopy. Health Maintenance List SHINGRIX VACCINE(1 of 2) Never done DTAP,TDAP,TD(1 - Tdap) due on 02/23/2008 DEPRESSION ASSESSMENT Never done COVID-19 VACCINE(5 - Booster for Pfizer series) due on 09/24/2021 INFLUENZA(1) due on 11/21/2021 PNEUMOCOCCAL: 65+(2 - PCV) due on 09/05/2022 LDL CHOLESTEROL due on 12/06/2022 DIABETES SCREEN due on 12/06/2024 ADVANCE DIRECTIVE DISCUSSION Completed Data reviewed [facility] reports from 10/21/21-10/22/21 ASSESSMENT/PLAN: 1. Hospital discharge follow-up - ICD9: V67.59, ICD10: Z09 (primary diagnosis) Improved Continue current medications. 2. Encounter for immunization - ICD9: V03.89, ICD10: Z23 - INFLUENZA SEASONAL QUADRIVALENT HIGH DOSE AGE 65+ 3. TIA (transient ischemic attack) - ICD9: 435.9, ICD10: G45.9 Continue current medications. 4. Thyroid nodule - ICD9: 241.0, ICD10: E04.1 Get Thyroid US 5. Essential hypertension, benign - ICD9: 401.1, ICD10: I10 - fair control - Continue current medication(s) - Recommended regular aerobic exercise. - Recommend home blood pressure monitoring, to bring results in on next visit - Goal of BP <130/80 6. Paroxysmal atrial fibrillation (HCC) - ICD9: 427.31, ICD10: I48.0 Continue current medications. 7. Atherosclerosis 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, unspecified vessel or lesion type, unspecified whether pauma or transplanted heart - ICD9: 414.00, ICD10: I25.10 Continue current medications. Follow up in Dec as scheduled with fasting labs prior. I agree with the Chief Complaint, ROS, and Past Histories independently gathered by the clinical patient support tech and the remaining scribed note accurately describes my personal service to the patient. Medical Decision Making: Problems: Moderate: New problem with uncertain prognosis Data: Unique test result(s) reviewed: 3+ Unique test(s) ordered: 3+ Risk: Moderate: Drug management Medical Decision Making Level: 4 - Moderate Stas Mora MD The documentation for this note was completed by Marta Palacio Ma acting as scribe for Stas Mora MD. December 26, 2021 11:26 AM. Marta Palacio Ma documented in this encounterCleveland [facility]09-30-2022 Miscellaneous Notes* Telephone Encounter - Senia Phillips RPh - 12/20/2021 4:39 PM EDT [facility] Ambulatory Pharmacy Anticoagulation Clinic Anticoagulation Episode Summary Anticoagulation Care Providers Provider Role Specialty Phone number Stas Mora MD Referring Family Medicine [phone] Roby Flores is a 86 year old year old male patient being evaluated today for a Telemanagement visit. Patient is currently on the following anticoagulant(s) Warfarin. Labs PT INR (no units) Date Value 05/15/2021 2.3 04/17/2021 1.9 03/13/2021 Test sent to [facility]. INR (no units) Date Value 12/20/2021 2.1 12/06/2021 3.8 11/22/2021 2.4 Hemoglobin (g/dL) Date Value 07/08/2021 15.9 Hematocrit (%) Date Value 07/08/2021 49.5 Platelet Count (k/uL) Date Value 07/08/2021 235 Creatinine (mg/dL) Date Value 12/06/2021 0.80 07/08/2021 0.81 03/13/2021 0.80 08/28/2020 0.83 Bilirubin, Total (mg/dL) Date Value 12/06/2021 0.4 03/13/2021 0.5 ALT (U/L) Date Value 12/06/2021 17 03/13/2021 24 AST (U/L) Date Value 12/06/2021 23 03/13/2021 24 CrCl cannot be calculated (Unknown ideal weight.). ALLERGIES No Known Allergies 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: [facility] current us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 Paroxysmal atrial fibrillation (hcc) Anticoagulation Episode Summary Current INR goal: 2.0-3.0 Assessment: INR result of 2.1 is therapeutic Plan: Current Warfarin Dosing As of 12/20/2021 Full warfarin instructions: 2.5 mg every day Sent Group Therapy Records message Advised patient to continue current weekly dose as noted above Next lab INR check scheduled on 01/03/2022 Senia Phillips RPh Clinical Pharmacist, Pharmacy Anticoagulation Clinic Pharmacy Anticoagulation Clinic Pager: [phone]. documented in this encounterCleveland [facility]09-16-2022 Miscellaneous Notes* Telephone Encounter - Senia Phillips RPh - 12/06/2021 4:29 PM EDT [facility] Ambulatory Pharmacy Anticoagulation Clinic Anticoagulation Episode Summary Anticoagulation Care Providers Provider Role Specialty Phone number Stas Mora MD Referring [facility] [phone] Roby Flores is a 86 year old year old male patient being evaluated today for a Telemanagement visit. Patient is currently on the following anticoagulant(s) Warfarin. Labs PT INR (no units) Date Value 05/15/2021 2.3 04/17/2021 1.9 03/13/2021 Test sent to [facility]. INR (no units) Date Value 12/06/2021 3.8 11/22/2021 2.4 11/08/2021 2.8 Hemoglobin (g/dL) Date Value 07/08/2021 15.9 Hematocrit (%) Date Value 07/08/2021 49.5 Platelet Count (k/uL) Date Value 07/08/2021 235 Creatinine (mg/dL) Date Value 12/06/2021 0.80 07/08/2021 0.81 03/13/2021 0.80 08/28/2020 0.83 Bilirubin, Total (mg/dL) Date Value 12/06/2021 0.4 03/13/2021 0.5 ALT (U/L) Date Value 12/06/2021 17 03/13/2021 24 AST (U/L) Date Value 12/06/2021 23 03/13/2021 24 CrCl cannot be calculated (Unknown ideal weight.). 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 Paroxysmal atrial fibrillation (hcc) Anticoagulation Episode Summary Current INR goal: 2.0-3.0 Assessment: INR result of 3.8 is SUPRAtherapeutic due to: unknown cause - did not speak to patient Plan: Current Warfarin Dosing As of 12/06/2021 Full warfarin instructions: 2.5 mg every day Left voice message Advised patient to hold 1 dose then continue current regimen Next lab INR check scheduled on 12/20/2021 Senia Phillips RPh Clinical Pharmacist, Pharmacy Anticoagulation Clinic Pharmacy Anticoagulation Clinic Pager: [phone]. documented in this encounterCleveland [facility]09-02-2022 Miscellaneous Notes* Telephone Encounter - Janice Huang RPh - 11/22/2021 5:17 PM EDT [facility] Amb[facility] Anticoagulation Clinic Anticoagulation Episode Summary Anticoagulation Care Providers Provider Role Specialty Phone number Stas Mora MD Referring [facility] [phone] Roby Flores is a 86 year old year old male patient being evaluated today for a Telemanagement visit. Patient is currently on the following anticoagulant(s) Warfarin. Labs PT INR (no units) Date Value 05/15/2021 2.3 04/17/2021 1.9 03/13/2021 Test sent to [facility]. INR (no units) Date Value 11/22/2021 2.4 11/08/2021 2.8 10/25/2021 4.1 Hemoglobin (g/dL) Date Value 07/08/2021 15.9 Hematocrit (%) Date Value 07/08/2021 49.5 Platelet Count (k/uL) Date Value 07/08/2021 235 Creatinine (mg/dL) Date Value 07/08/2021 0.81 03/13/2021 0.80 08/28/2020 0.83 Bilirubin, Total (mg/dL) Date Value 07/08/2021 0.5 03/13/2021 0.5 ALT (U/L) Date Value 07/08/2021 29 03/13/2021 24 AST (U/L) Date Value 07/08/2021 29 03/13/2021 24 Estimated Creatinine Clearance: 71.9 mL/min (based on SCr of 0.81 mg/dL). 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 Paroxysmal atrial fibrillation (hcc) Anticoagulation Episode Summary Current INR goal: 2.0-3.0 Assessment: INR result of 2.4 is therapeutic Plan: Current Warfarin Dosing As of 11/22/2021 Full warfarin instructions: 2.5 mg every day Called and spoke to patient/caregiver Advised patient to continue current weekly dose as noted above Next lab INR check scheduled on 12/06/2021 Advised pt to Call Coumadin Clinic at [phone] to confirm dosing and follow-up Janice Huang RPh Clinical Pharmacist, Pharmacy Anticoagulation Clinic Pharmacy Anticoagulation Clinic Pager: [phone]. documented in this encounterCleveland Clinic [facility]08-19-2022 Miscellaneous Notes* Telephone Encounter - Senia Phillips RPh - 11/08/2021 5:01 PM EDT [facility] Ambulatory [facility] Anticoagulation Clinic Anticoagulation Episode Summary Anticoagulation Care Providers Provider Role Specialty Phone number Stas Mora MD Referring [facility] [phone] Roby Flores is a 86 year old year old male patient being evaluated today for a Telemanagement visit. Patient is currently on the following anticoagulant(s) Warfarin. Labs PT INR (no units) Date Value 05/15/2021 2.3 04/17/2021 1.9 03/13/2021 Test sent to [facility]. INR (no units) Date Value 11/08/2021 2.8 10/25/2021 4.1 10/11/2021 4.1 Hemoglobin (g/dL) Date Value 07/08/2021 15.9 Hematocrit (%) Date Value 07/08/2021 49.5 Platelet Count (k/uL) Date Value 07/08/2021 235 Creatinine (mg/dL) Date Value 07/08/2021 0.81 03/13/2021 0.80 08/28/2020 0.83 Bilirubin, Total (mg/dL) Date Value 07/08/2021 0.5 03/13/2021 0.5 ALT (U/L) Date Value 07/08/2021 29 03/13/2021 24 AST (U/L) Date Value 07/08/2021 29 03/13/2021 24 Estimated Creatinine Clearance: 71.9 mL/min (based on SCr of 0.81 mg/dL). ALLERGIES No Known Allergies 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: [facility] current us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 Paroxysmal atrial fibrillation (hcc) Anticoagulation Episode Summary Current INR goal: 2.0-3.0 Assessment: INR result of 2.8 is therapeutic Plan: Current Warfarin Dosing As of 11/08/2021 Full warfarin instructions: 2.5 mg every day Sent Group Therapy Records message Advised patient to continue current weekly dose as noted above Next lab INR check scheduled on 11/22/2021 Senia Phillips RPh Clinical Pharmacist, Pharmacy Anticoagulation Clinic Pharmacy Anticoagulation Clinic Pager: [phone]. documented in this encounterCleveland Clinic [facility]08-05-2022 Miscellaneous Notes* Telephone Encounter - Janice Huang RPh - 10/25/2021 4:16 PM EDT [facility] Amb[facility] Anticoagulation Clinic Anticoagulation Episode Summary Anticoagulation Care Providers Provider Role Specialty Phone number Stas Mora MD Referring [facility] [phone] Roby Flores is a 86 year old year old male patient being evaluated today for a Telemanagement visit. Patient is currently on the following anticoagulant(s) Warfarin. Labs PT INR (no units) Date Value 05/15/2021 2.3 04/17/2021 1.9 03/13/2021 Test sent to [facility]. INR (no units) Date Value 10/25/2021 4.1 10/11/2021 4.1 09/27/2021 2.3 Hemoglobin (g/dL) Date Value 07/08/2021 15.9 Hematocrit (%) Date Value 07/08/2021 49.5 Platelet Count (k/uL) Date Value 07/08/2021 235 Creatinine (mg/dL) Date Value 07/08/2021 0.81 03/13/2021 0.80 08/28/2020 0.83 Bilirubin, Total (mg/dL) Date Value 07/08/2021 0.5 03/13/2021 0.5 ALT (U/L) Date Value 07/08/2021 29 03/13/2021 24 AST (U/L) Date Value 07/08/2021 29 03/13/2021 24 Estimated Creatinine Clearance: 71.9 mL/min (based on SCr of 0.81 mg/dL). 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 Paroxysmal atrial fibrillation (hcc) Anticoagulation Episode Summary Current INR goal: 2.0-3.0 Assessment: INR result of 4.1 is SUPRAtherapeutic due to: No obvious cause Plan: Current Warfarin Dosing As of 10/25/2021 Full warfarin instructions: 10/25: Hold; Otherwise 2.5 mg every day Called and spoke to patient/caregiver Advised patient to hold 1 dose then decrease current regimen Next lab INR check scheduled on 11/08/2021 Patient verbalizes understanding of the plan. Patient denies need for refills. Janice Huang RPh Clinical Pharmacist, Pharmacy Anticoagulation Clinic Pharmacy Anticoagulation Clinic Pager: [phone] . documented in this encounterCleveland Clinic [facility]07-08-2022 Miscellaneous Notes* Telephone Encounter - Elana Campbell ([employer]) - 09/27/2021 4:50 PM EDT PATIENT CALL Patient called call center regarding results. Patient called and stated he had his INR checked today (09/27) and it was 2.3. Patient can be called at [phone] with any questions or sent [facility] message if result is within range. PT INR (no units) Date Value 05/15/2021 2.3 04/17/2021 1.9 03/13/2021 Test sent to [facility]. INR (no units) Date Value 09/27/2021 2.3 09/13/2021 2.7 08/30/2021 2.1 Elana Campbell ([employer]) * Telephone Encounter - Yomi Wills RPh - 09/27/2021 6:28 AM EDT Patient due to test INR today. Will continue to monitor for results. Yomi Wills RPh documented in this encounterCleveland Clinic [facility]06-24-2022 Miscellaneous Notes* Telephone Encounter - Senia Phillips RPh - 09/13/2021 4:11 PM EDT [facility] Ambulatory Pharmacy Anticoagulation Clinic Anticoagulation Episode Summary Anticoagulation Care Providers Provider Role Specialty Phone number Stas Mora MD [facility] [facility] [phone] Roby Flores is a 86 year old year old male patient being evaluated today for a Telemanagement visit. Patient is currently on the following anticoagulant(s) Warfarin. Labs PT INR (no units) Date Value 05/15/2021 2.3 04/17/2021 1.9 03/13/2021 Test sent to [facility]. INR (no units) Date Value 09/13/2021 2.7 08/30/2021 2.1 08/16/2021 1.7 Hemoglobin (g/dL) Date Value 07/08/2021 15.9 Hematocrit (%) Date Value 07/08/2021 49.5 Platelet Count (k/uL) Date Value 07/08/2021 235 Creatinine (mg/dL) Date Value 07/08/2021 0.81 03/13/2021 0.80 08/28/2020 0.83 Bilirubin, Total (mg/dL) Date Value 07/08/2021 0.5 03/13/2021 0.5 ALT (U/L) Date Value 07/08/2021 29 03/13/2021 24 AST (U/L) Date Value 07/08/2021 29 03/13/2021 24 Estimated Creatinine Clearance: 71.9 mL/min (based on SCr of 0.81 mg/dL). ALLERGIES No Known Allergies 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: [facility] current us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 Paroxysmal atrial fibrillation (hcc) Anticoagulation Episode Summary Current INR goal: 2.0-3.0 Assessment: INR result of 2.7 is therapeutic Plan: Sent [employer] message Advised patient to continue current weekly dose Next lab INR check scheduled on 09/27/2021 Senia Phillips RPh Clinical Pharmacist, Pharmacy Anticoagulation Clinic Pharmacy [facility] Pager: [phone] . documented in this encounterCleveland Clinic [facility]06-16-2022 History of Present illness Narrative* Stas Mora MD - 09/05/2021 11:20 AM EDT Medical B eligibilty date 1999 Date of last exam 08/28/2020 PAST MEDICAL HISTORY Diagnosis Date Coronary atherosclerosis of unspecified type of vessel, pauma or graft Coronary artery disease Other and unspecified hyperlipidemia Unspecified essential hypertension Essential hypertension PAST SURGICAL HISTORY Procedure Laterality Date APPENDECTOMY PERC TRANSL COR ANGIO 2005 last time Percutaneous Transluminal Coronary Angio Status 3 procedures Patient has no known allergies. Current Outpatient Medications Medication Sig warfarin (COUMADIN) 2.5 mg tablet TAKE 5 MG EVERY MON, DIXIE 2.5 MG ALL OTHER DAYS fosinopril (MONOPRIL) 10 mg tablet Take 1 tablet by mouth once daily. ADULT ASPIRIN 81 MG CHEWABLE TAB Take one(1) tablet daily. No current facility-administered medications for this visit. Medications reviewed: Yes FAMILY HISTORY Problem Relation Age of Onset Arthritis Mother Alcohol/Drug Father Stroke Father Cancer Brother 50 Stomach cancer Social History Tobacco Use Smoking status: Former Smoker Smokeless tobacco: Never Used Tobacco comment: 30 yaers ago Substance Use Topics Alcohol use: No Drug use: No Roby gets minimal exercise other then doing work around the home, such as mowing. Admits he doesn't watch his diet, but his significant other Gabby cooks well for him. Did fall in the bathroom last week due to knee going out or slipping in his socks on the hardwood floor. When he fell his mid back hit the edge of the tub. Denies any pain just has a bruise. List of current specialists seen: [facility] follows with [facility] for Coumadin management. Pt denies any other Specialist. End of Live Planning discussed including patients advanced directive wishes: Yes has both. Daughteris his POA. I am willing to follow Roby advanced directives. Depression screen He in the past two weeks denies having felt down, depressed, hopeless or with little interest or pleasure in doing things. Functional Ability/Safety Screen 1. Was the patient's timed Up and Go test unsteady or longer than 30 seconds? No 2. Does the patient need help with the phone, transportation, shopping,preparing meals, housework, laundry, medications or managing money? No 3. Does your home have rungs in the hallway, lack of grab bars in the bathroom, lack of handrails on the stairs or have poor lighting? No rugs, No grab bars, + handrails and good lighting at home. Hearing Evaluation: within normal limits and wears hearing aids PHYSICAL EXAM BP 136/70 (BP Site: Left Arm, BP Position: Sitting, BP Cuff Size: Regular Adult) Pulse 62 Resp 16 Ht 182.9 cm (6') Wt 80.2 kg (176 lb 12.8 oz) BMI 23.98 kg/m Visual acuity: OD: 20/40 OS: 20/ 40 OU: 20/25, no corrective lenses. Green = blue, Red normal. Mini-Cog Patient asked to remember the following three words: Banana, [place] and Chair Visuospatial/Executive Functioning: Clock drawin/2 (Normal clock with all number in correct sequence and position, hands are correct = 2 points, inability or refusal to draw a clock = 0) Three word recall: 3/3 Total score: 5/5 (Total score = word recall score + clock draw score) Physical Exam Constitutional: Appearance: Normal appearance. Cardiovascular: Rate and Rhythm: Normal rate and regular rhythm. Pulses: Normal pulses. Heart sounds: Normal heart sounds. No murmur heard. No gallop. Pulmonary: Effort: Pulmonary effort is normal. No respiratory distress. Breath sounds: Normal breath sounds. No wheezing or rales. Skin: Findings: Bruising present. Comments: Mid upper back. Neurological: General: No focal deficit present. Mental Status: He is alert and oriented to person, place, and time. Psychiatric: Mood and Affect: Mood normal. Behavior: Behavior normal. ASSESMENT/PLAN: 86 year old male The following prevention plan was discussed during the office visit and provided to the patient: - Fall avoidance ASSESSMENT/PLAN: 1. Encounter for Medicare annual wellness exam - ICD9: V70.0, ICD10: Z00.00 (primary diagnosis) - Counseled on healthy diet and regular exercise - Follow up for annual exam in one year 2. Paroxysmal atrial fibrillation (HCC) - ICD9: 427.31, ICD10: I48.0 3. Essential hypertension, benign - ICD9: 401.1, ICD10: I10 I agree with the Chief Complaint, ROS, and Past Histories independently gathered by the clinical patient support tech and the remaining scribed note accurately describes my personal service to the patient. Stas Mora MD The documentation for this note was completed by Rosie Cruz Ma acting as scribe for Stas Mora MD. September 05, 2021 11:33 AM. Rosie Cruz Ma documented in this encounterCleveland Clinic [facility]06-10-2022 Miscellaneous Notes* Telephone Encounter - Senia Phillips [facility] - 08/30/2021 5:10 PM EDT [facility] Amb[facility]tico[facility] Clinic Anticoagulation Episode Summary Anticoagulation Care Providers Provider Role Specialty Phone number Stas Mora MD Referring [facility] [phone] Roby Flores is a 86 year old year old male patient being evaluated today for a Telemanagement visit. Patient is currently on the following anticoagulant(s) Warfarin. Labs PT INR (no units) Date Value 05/15/2021 2.3 04/17/2021 1.9 03/13/2021 Test sent to [facility]. INR (no units) Date Value 08/30/2021 2.1 08/16/2021 1.7 08/02/2021 3.2 Hemoglobin (g/dL) Date Value 07/08/2021 15.9 Hematocrit (%) Date Value 07/08/2021 49.5 Platelet Count (k/uL) Date Value 07/08/2021 235 Creatinine (mg/dL) Date Value 07/08/2021 0.81 03/13/2021 0.80 08/28/2020 0.83 Bilirubin, Total (mg/dL) Date Value 07/08/2021 0.5 03/13/2021 0.5 ALT (U/L) Date Value 07/08/2021 29 03/13/2021 24 AST (U/L) Date Value 07/08/2021 29 03/13/2021 24 CrCl cannot be calculated (Unknown ideal weight.). 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 documented in this encounterC[facility]06-10-2022 Miscellaneous Notes* Telephone Encounter - Jenna Fitzpatrick APRN.CNP - 08/30/2021 8:56 AM EDT Needs order for PT/INR, order signed. Jenna Fitzpatrick APRN.CNP documented in this encounterCleveland Clinic [facility]05-27-2022 Miscellaneous Notes* Telephone Encounter - Rosie Cruz Ma - 08/16/2021 2:18 PM EDT INR has been reviewed in another encounter. Rosie Cruz Ma documented in this encounterCleveland Clinic [facility]05-13-2022 Miscellaneous Notes* Telephone Encounter - Senia Phillips RPh - 08/02/2021 4:11 PM EDT [facility] Ambulatory [facility] Anticoagulation Clinic Anticoagulation Episode Summary Anticoagulation Care Providers Provider Role Specialty Phone number Stas Mora MD Referring [facility] [phone] Roby Flores is a 85 year old year old male patient being evaluated today for a Telemanagement visit. Patient is currently on the following anticoagulant(s) Warfarin. Labs PT INR (no units) Date Value 05/15/2021 2.3 04/17/2021 1.9 03/13/2021 Test sent to [facility]. INR (no units) Date Value 08/02/2021 3.2 07/17/2021 2.0 07/03/2021 4.5 Hemoglobin (g/dL) Date Value 07/08/2021 15.9 Hematocrit (%) Date Value 07/08/2021 49.5 Platelet Count (k/uL) Date Value 07/08/2021 235 Creatinine (mg/dL) Date Value 07/08/2021 0.81 03/13/2021 0.80 08/28/2020 0.83 Bilirubin, Total (mg/dL) Date Value 07/08/2021 0.5 03/13/2021 0.5 ALT (U/L) Date Value 07/08/2021 29 03/13/2021 24 AST (U/L) Date Value 07/08/2021 29 03/13/2021 24 CrCl cannot be calculated (Unknown ideal weight.). 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 documented in this encounterCleveland Clinic [facility]04-27-2022 Miscellaneous Notes* Telephone Encounter - Rosie Cruz Ma - 07/17/2021 3:23 PM EDT Call to pt and notified him of below, verbalized understanding. Rosie Cruz Ma * Telephone Encounter - Stas Mora MD - 07/17/2021 3:14 PM EDT Thanks for the clarification; I was understanding that he had gone back on the Zocor. Since he has not been taking anything then I think he is OK to stay off any cholesterol medications. Stas Mora MD * Telephone Encounter - Jessica Mcfadden RN - 07/17/2021 12:55 PM EDT Patient returned call and given provider's message with verbalized understanding. Patient reports he has not taken cholesterol medicine in a long time. He doesn't know how long. Do you still want himto take the lipitor? Please advise patient. * Telephone Encounter - Marta Palacio Ma - 07/17/2021 11:31 AM EDT Message left for pt to call back for results. Marta Palacio MA * Telephone Encounter - Stas Mora MD - 07/16/2021 6:07 PM EDT Please notify patient that his labs look very good; his cholesterol is low. I think he would benefit from staying on a cholesterol medicine, so I would like to switch him to Lipitor as ordered and recheck labs in 6 months Stas Mora MD documented in this encounterCleveland Clinic [facility]04-25-2022 Miscellaneous Notes* Telephone Encounter - Elvis Kearney APRN.CNP - 07/15/2021 12:39 PM EDT The following approved medication requests have been transmitted electronically. Pending Prescriptions Disp Refills WARFARIN 2.5 MG TABLET 135 tablet 3 Sig: TAKE 5 MG EVERY MON, DIXIE 2.5 MG ALL OTHER DAYS MESFIN: No Elvis Kearney APRN.CNP documented in this encounterCleveland Clinic [facility]04-18-2022 History of Present illness Narrative* Stas Mora MD - 07/08/2021 10:36 AM EDT Chief Complaint Patient presents with: Medication Follow-up HPI Roby Flores is a 85 year old male who presents here today for medication follow up. He does have an advanced directive/Living will. No bowel, Gi, or urinary issues. HTN: Does check BP at home, readings WNL. No chest pains, dizziness, or SOB. No swelling in feet orankles. 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 Taking Fosinopril 10 mg daily. Lipid: Taking Zocor 40 mg daily. He states he has been watching his diet, actually eating more vegetarian. Denies any regular exercise. He has been off the Zocor a few months but started taking it again last week. Pt states that his insurance is going to increase the cost of the Zocor and suggestedif he still needed cholesterol meds to switch to something else. A-fib: Taking coumadin, Pharmacist manages INR. He can not tell when he is in A- fib. He states thatthe last 2 months his INR has been high. He has been eating more greens. He was also splitting his dosage into twice a day rather than all at once. Pain: brian knee pain, OA. He has not done PT or seen Ortho for the pain. The knees ache constantly, occ feels like the knee might give out. Uses blue emu on the knees at times. He does not take any Tylenol. Past medical history, appointments, medications, allergies reviewed. Previous Medical History PAST MEDICAL HISTORY Diagnosis Date Coronary atherosclerosis of unspecified type of vessel, pauma or graft Coronary artery disease Other and unspecified hyperlipidemia Unspecified essential hypertension Essential hypertension Previous Surgical History PAST SURGICAL HISTORY Procedure Laterality Date APPENDECTOMY PERC TRANSL COR ANGIO 2005 last time Percutaneous Transluminal Coronary Angio Status 3 procedures Family History FAMILY HISTORY Problem Relation Age of Onset Arthritis Mother Alcohol/Drug Father Stroke Father Cancer Brother 50 Stomach cancer Patient Allergies ALLERGIES No Known Allergies Current Medications Current Outpatient Medications on File Prior to Visit Medication Sig Amoxicillin-Pot Clavulanate (AUGMENTIN SR) 1,000-62.5 mg per tablet Q12H simvastatin (ZOCOR) 40 mg tablet 40 mg. acyclovir (ZOVIRAX) 5 % ointment Apply to affected area five times daily. warfarin (COUMADIN) 2.5 mg tablet 5 mg every Mon, Dixie; 2.5 mg all other days fosinopril (MONOPRIL) 10 mg tablet Take 1 tablet by mouth once daily. ADULT ASPIRIN 81 MG CHEWABLE TAB Take one(1) tablet daily. No current facility-administered medications on file prior to visit. Social History Social History Tobacco Use Smoking status: Former Smoker Smokeless tobacco: Never Used Tobacco comment: 30 yaers ago Substance Use Topics Alcohol use: No Drug use: No EXAM: BP 120/78 Pulse 60 Resp 16 Wt 83.6 kg (184 lb 3.2 oz) BMI 24.98 kg/m General Appearance: Well appearing, alert, in no acute distress, well-hydrated, well nourished.. Lungs: Lungs clear to auscultation. No wheezing, rhonchi, rales.. Heart: RRR without murmur, gallop, or rubs. No ectopy. Health Maintenance List SHINGRIX VACCINE(1 of 2) Never done DTAP,TDAP,TD(1 - Tdap) due on 02/23/2008 ADVANCE DIRECTIVE DISCUSSION Never done LDL CHOLESTEROL due on 03/13/2022 DIABETES SCREEN due on 03/13/2024 INFLUENZA Completed PNEUMOVAX AGE 65 AND OVER WITH 5YR LOOKBACK Completed COVID-19 VACCINE Completed MENINGOCOCCAL CONJUGATE Aged Out Data reviewed Appointment on 07/03/2021 Component Date Value PT Sec 07/03/2021 44.1 (A) INR 07/03/2021 4.5 (A) Appointment on 06/12/2021 Component Date Value PT Sec 06/12/2021 34.5 (A) INR 06/12/2021 3.5 (A) Appointment on 05/15/2021 Component Date Value PT Sec 05/15/2021 23.4 (A) PT INR 05/15/2021 2.3 (A) ASSESSMENT/PLAN: 1. Essential hypertension, benign - ICD9: 401.1, ICD10: I10 (primary diagnosis) - good control - Continue current medication(s) - Recommended regular aerobic exercise. - Recommend home blood pressure monitoring, to bring results in on next visit - Goal of BP <130/80 2. Atherosclerosis 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, unspecified vessel or lesion type, unspecified whether pauma or transplanted heart - ICD9: 414.00, ICD10: I25.10 Check lipid and cmp today, will notify if he needs to continue on cholesterol medications, may needto change zocor to cheaper medication. Continue current medications. Recommend exercise 3. Paroxysmal atrial fibrillation (HCC) - ICD9: 427.31, ICD10: I48.0 Continue current medications. 4. Acute pain of both knees - ICD9: 338.19, 719.46, ICD10: M25.561, M25.562 Declined PT or Ortho consult Declined XR Recommend using Tylenol for pain, continue with blue emu Follow up determined upon lab results. Will notify of lab results. I agree with the Chief Complaint, ROS, and Past Histories independently gathered by the clinical patient support tech and the remaining scribed note accurately describes my personal service to the patient. Medical Decision Making: Problems: Moderate: 2+ stable chronic illnesses Data: Unique test(s) ordered: 2 Risk: Moderate: Drug management Medical Decision Making Level: 4 - Moderate Stas Mora MD The documentation for this note was completed by Marta Palacio Ma acting as scribe for Stas Mora MD. July 08, 2021 10:37 AM. Marta Palacio Ma documented in this encounterCleveland Clinic [facility]04-13-2022 Miscellaneous Notes* Telephone Encounter - Coretta Jalloh [facility] - 07/03/2021 3:40 PM EDT [facility] Ambulatory Pharm[facility] Anticoagulation Clinic Anticoagulation Episode Summary Anticoagulation Care Providers Provider Role Specialty Phone number Stas Mora MD Referring [facility] [phone] Roby Flores is a 85 year old year old male patient being evaluated today for a Lab INR. Patient is currently on the following anticoagulant(s) Warfarin. Labs PT INR (no units) Date Value 05/15/2021 2.3 04/17/2021 1.9 03/13/2021 Test sent to [facility]. INR (no units) Date Value 07/03/2021 4.5 06/12/2021 3.5 Creatinine (mg/dL) Date Value 03/13/2021 0.80 08/28/2020 0.83 Bilirubin, Total (mg/dL) Date Value 03/13/2021 0.5 ALT (U/L) Date Value 03/13/2021 24 AST (U/L) Date Value 03/13/2021 24 CrCl cannot be calculated (Unknown ideal weight.). 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 He also has been taking 2.5mg AM and 2.5mg PM on Thu and . Plan: Called and spoke to patient/caregiver Advised patient to hold 1 dose then decrease current regimen Next lab INR check scheduled on or by 07/17. Patient verbalizes understanding of the plan. Patient denies need for refills. Coretta Jalloh RPh Clinical Pharmacist, Pharmacy Anticoagulation Clinic Pharmacy Anticoagulation Clinic Pager: [phone] . * Telephone Encounter - Marta Palacio Ma - 07/03/2021 3:05 PM EDT INR 4.5. Results routed to pharmacist who Handles pt coumadin. Marta Palacio Ma documented in this encounterCleveland Clinic [facility]03-23-2022 Miscellaneous Notes* Telephone Encounter - Coretta Jalloh RPh - 06/12/2021 3:20 PM EDT [facility] Amb[facility] Anticoagulation Clinic Anticoagulation Episode Summary Anticoagulation Care Providers Provider Role Specialty Phone number Stas Mora MD Referring [facility] [phone] Roby Flores is a 85 year old year old male patient being evaluated today for a Lab INR. Patient is currently on the following anticoagulant(s) Warfarin. Labs PT INR (no units) Date Value 05/15/2021 2.3 04/17/2021 1.9 03/13/2021 Test sent to [facility]. INR (no units) Date Value 06/12/2021 3.5 Creatinine (mg/dL) Date Value 03/13/2021 0.80 08/28/2020 0.83 Bilirubin, Total (mg/dL) Date Value 03/13/2021 0.5 ALT (U/L) Date Value 03/13/2021 24 AST (U/L) Date Value 03/13/2021 24 CrCl cannot be calculated (Unknown ideal weight.). ALLERGIES No Known Allergies 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: [facility] current use of anticoagulant Paroxysmal atrial fibrillation (hcc) Anticoagulation Episode Summary Current INR goal: 2.0-3.0 Assessment: INR result of 3.5 is SUPRAtherapeutic due to: No obvious cause Plan: Called and spoke to patient/caregiver Advised patient to hold 1 dose then continue current regimen Next lab INR check scheduled on 07/03 in [place]. Patient verbalizes understanding of the plan. Patient denies need for refills. Coretta Jlaloh RPh Clinical Pharmacist, Pharmacy Anticoagulation Clinic Pharmacy Anticoagulation Clinic Pager: [phone] . * Telephone Encounter - Rosie Cruz Ma - 06/12/2021 3:08 PM EDT Pt's INR results have finalized. Routing to pharm to review and advise. Rosie Cruz Ma documented in this encounterCleveland Clinic [facility] Rehabilitation12-21-2020 History of Present illness Narrative* Hussein George Tech (Rt) - 03/12/2020 5:00 PM EST Radiology Service Progress Note PATIENT NAME: Roby Flores DATE OF SERVICE: March 12, 2020 TIME: 5:01 PM PATIENT IDENTITY VERIFICATION COMPLETED USING TWO (2) IDENTIFIERS: Name and Date of confirmedby patient verbally. FALL SCREENING: Has the patient had 2 falls in the last year or 1 fall with injury or currently using an Ambulatory Assistive Device (Walker, Cane, Wheelchair, Crutches, etc.)? No PATIENT GENDER DATA: Male PATIENT RELEVANT IMPLANT DATA REVIEWED: Not Applicable RADIOLOGY DEPARTMENT: General X-ray: Exam(s) Completed: Spine X-Ray(s): Lumbar AP / LAT / L5-S1 PERIPHERAL IV DATA: Not applicable SIGNED BY: RT Macrina March 12, 2020 5:01 PM documented in this encounterCleveland Clinic Children'S Hospital For RehabilitationDischar summary Author Inderjit Gillespie [facility] Note Date/Time September 01, 2024 10:2 5am [facility] Medical Records Department [address] [place] [address] Emergency Department Summary 09/01/24 MR#: [id number] Acct: [id number] Name: ROBY FLORES Rep #:[id number] : [id number] 89 From: Inderjit Gillespie MD PCP: Dr. Stas Mora MD Status:RE G ER Location: ED HPI HPI - Fall History of Present Illness Chief Complaint: Fall Informant: patient and spouse/S.O. Occured/Mechanism Occurred: Today Mechanism/Context: Yes same level fall Usually ambulates: Without assistance Pain/Injury Pain Location: lower extremity Quality of Pain: Sharp Current Severity: Mild Associated Symptoms Associated Symptoms: Positive for Weakness and Inability to ambulate; Negative for Parasthesias, Loss of function, Loss of consciousness or Amnesia Narrative Narrative: 89-year-old male history of dementia on the blood thinner Coumadin due to prior TIAs and A-fib. He was in the bathroom today fell was unable to get up and is complaining of right hip pain. called the paramedics. He also fell yesterday. He has an abrasion to his left elbow. They do not believe that he hit his head. He denies any headache. Prior similar symptoms: No Recent Illness/Hospitalization: No PFSH PFSH Medical History Chronic anticoagulation TIA (transient ischemic attack) Anticoagulant long-term use CAD (coronary artery disease) Home Medications ?Medication ?Instructions ?Recorded ?Last Taken ?Type warfarin 2.5 mg tablet 2.5 mg PO DAILY blood thinne r 10/06/17 10/06/17 History atorvastatin 40 mg tablet 40 mg PO QHS #30 tabs Unknown Rx lisinopril 10 mg tablet 10 mg PO DAILY #30 tabs 10/0 05/14 Unknown Rx memantine 10 mg tablet 10 mg PO BID 09/01/24 Unknow n History rivastigmine 4.6 mg/24 hour 1 patch topical DAILY 08/21 05/17 Unknown History transdermal patch Allergy/AdvReac Type Severity Reaction Status Date / Time No Known Allergies Allergy Verified 09/01/24 07:35 Family History Other Alcoholism Surgical History Hx of appendectomy Stented coronary artery History of appendectomy Social History household members: spouse and significant other housing: house Smoking Status: Former smoker substance use type: does not use ROS ROS ED ROS Narrative Denies recent illness. Constitutional Constitutional ED: Denies chills or fever(s) Eyes Eyes: Denies blurry vision ENT ENT ED: Denies ear pain Cardiovascular Cardiovascular: Denies chest pain Respiratory/Chest Respiratory/Chest: Denies cough or dyspnea Gastrointestinal Gastrointestinal: Denies abdominal pain Genitourinary Genitourinary ED: Denies dysuria or hematuria Musculoskeletal Musculoskeletal: Denies arthralgias Integumentary Denies abscess or Abrasions Neurologic Neurologic: Denies headache(s) Psychiatric Psychiatric: Denies anxiety Endocrine Endocrinology: Denies polydipsia Hematologic/Lymphatic Hematologic/Lymphatic: Reports lymphadenopathy Allergic/Immunologic Allergic/Immunologic ED: Denies mouth swelling EXAM Physical Exam Narrative Exam Narrative: 89-year-old male sitting upright in bed. and I believe his daughter at bedside. No acute distress. Vital signs are stable. He is afebrile. His pulse ox is 98% on room air no hypoxia. H EENT exam pupils round reactive light. Extra motions are intact. He has no trauma or tenderness or bruising orabrasions to his face or scalp. C-spine and neck are nontender. Back and spineare nontender without any signs of trauma. Lungs clear to auscultation bilaterally. Heart A-fib rate in the 70s. Chest wall and ribs nontender. Abdomen soft nontender. Pelvic girdle intact. He has no shortening or rotationof either hip. He is able to flex and extend both hips. Femurs are nontender. There is no deformity. He has normal flexion extension of his knees and ankles. Normal dorsi plantarflexion. Upper extremities are nontender he is abrasion behind his left elbow but he can raise both arms over his head. He can flex extend his shoulders elbows and wrist. 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 Neurologically he is awake alert. Answering questions and following commands. He has dementia. Const Vital Signs: 09/01/24 07:31 09/01/24 07:36 09/01/24 09:31 Temperature 98.3 F Temperature Source Oral Pulse Rate 77 87 Respiratory Rate 16 18 Respiratory Effort Normal Non-Labored Respiratory Depth Normal Respiratory Pattern Normal Blood Pressure 170/86 H 180/89 H Blood Pressure Mean 114 119 Pulse Ox 98 98 99 Oxygen Delivery Method Room Air Room Air 09/01/24 09:52 Temperature 98.9 F Temperature Source Pulse Rate 87 Respiratory Rate 18 Respiratory Effort Respiratory Depth Respiratory Pattern Blood Pressure 180/89 H Blood Pressure Mean 119 Pulse Ox 99 Oxygen Delivery Method Positive well nourished and well developed General Appearance ED: well developed and NAD HEENT Reports normocephalic atraumatic; Negative for trauma, contusion, hematoma or tenderness Eyes PERRL and EOMs intact bilaterally Neck full ROM, no lymphadenopathy and supple Chest Wall inspection of chest normal and palpation of chest normal Resp normal respiratory effort, no retractions and clear to auscultation bilaterally Auscultation: Negative for rales, rhonchi or wheezes Cardio S1 normal heart sound, S2 normal heart sound and no murmurs; Negative for regular rate or regular rhythm Cardio Narrative: A-fib rate in the 70s. Rhythm: abnormal rhythm GI non-tender, non-distended and no masses Palpation: soft; Negative for guarding or rebound tenderness present Back/Spine no CVA tenderness Back/Spine Narrative: Back nontender no trauma. General Back: Negative for CVA tenderness Cervical Spine: Negative for cervical spine tenderness Lumbar Spine / Lower Back: Negative for lumbar spinal tenderness Neuro No oriented x3, CN's II-XII intact bilaterally, moves all extremities and no focal motor deficits Neuro Narrative: Awake and alert. Has dementia. Some confusion. At his baseline. Sensorium / Orientation: alert, oriented to person, orientation impaired and confused; Negative for oriented to place or oriented to time Motor Exam: strength 5/5 throughout Psych mental status grossly normal and thought process normal Skin Skin Narrative: Abrasion left posterior elbow. Nontender with normal range of motion. Lesions: no lesions Rashes: no rashes Trauma: abrasion MDM MDM MDM Narrative Medical decision making narrative: 89-year-old male fell at home in the bathroom complaining of hip pain exam is really not impressive he can move the hip there is no gross deformity nor shortening. X-rays to be taken of both hips. He does not need any pain meds. He is on Coumadin there is no signs of any head injury I do not think he needs aCT of his brain. He has no complaint of head pain or headache. And again thereis no signs of trauma. Screening labs are also be obtained. Repeat exam patient doing well at 8:45 AM. I went over the x-ray results with both his and daughter. And the patient. Will going to try to get him up and ambulating. To see if he is able to walk. Multiple repeat exams patient is resting comfortably. I went over test results with he and family. When we try to get him up and walk him he was extremely weak and unsteady on his feet. He will be unable to be discharged to home. I added additional testing which was unremarkable. Spoke to and family who agreed with the admission. Spoke to the hospitalist and he will be admitted. History & Record Review Discussion w/independent historian: Patient and Family Additional record(s) reviewed:: Prior inpatient record, Prior outpatient record,Prior ED visit and Prior labs Lab Data Attestation: I reviewed the patient's lab results. Lab results narrative: CBC shows white count 12.9. H&H 11.6 and 36.8. Platelets 258. PT/INR was 21.4 and 1.8. Electrolytes show sodium 139. Gap 10. BUN and creatinine of 17 and 0.7. Glucose 112. UA normal. CT brain chronic changes. No acute bleed. Labs: Laboratory Results - last 24 hr 09/01/24 09/01/24 08:01 09:46 WBC 12.9 H RBC 4.72 Hgb 11.6 L Hct 36.8 L MCV 78.0 L MCH 24.6 L MCHC 31.5 L RDW Std Deviation 48.2 H RDW Coeff of Boom 17.2 H Plt Count 258 MPV 9.4 Immature Gran % (Auto) 0.400 Neut % (Auto) 87.5 H Lymph % (Auto) 4.8 L Citrus % (Auto) 5.7 Eos % (Auto) 1.2 Baso % (Auto) 0.4 Absolute Neuts (auto) 11.3 H Absolute Lymphs (auto) 0.62 L Nucleated RBC % 0 PT 21.4 H INR 1.8 Sodium 139 Potassium 3.7 Chloride 105 Carbon Dioxide 24.3 Anion Gap 10 BUN 17 Creatinine 0.77 Estim Creat Clear Calc 68.71 Est GFR (MDRD) Non-Af 86 BUN/Creatinine Ratio 21.6 H Glucose 112 H Calcium 8.8 Urine Color Yellow Urine Clarity Clear Urine pH 8.0 Ur Specific [place] 1.010 Urine Protein 15 H Urine Glucose (UA) Normal Urine Ketones Negative Urine Occult Blood 10 H Urine Nitrite Negative Urine Bilirubin Negative Urine Urobilinogen 4 H Ur Leukocyte Esterase Negative Urine RBC 0 SEEN Urine WBC 0 SEEN Ur Squamous Epith Cells 0 SEEN Urine Bacteria 0 SEEN Urine Mucus 0 SEEN Radiography Chest X-Ray - ED: 2 View, Read by ED Physician, Heart, Lungs, Mediastinum, Bony Structures, No Acute Disease and Chronic Changes Diagnostic Testing: Clinical Impression(s) from Imaging Studies Hip/Pelvis X-Ray 09/01/24 07:57 IMPRESSION: Degenerative changes of both hip joints. No fracture or dislocation present. Reading Location: [facility]--[address] 09/01/24 09:05 IMPRESSION: Cerebral atrophy. Mucosal thickening of the ethmoid sinuses as well as opacification of the left maxillary sinus. Reading Location: [facility]-IR-1 Chest X-Ray 09/01/24 09:25 IMPRESSION: No acute abnormality is seen. Reading Location: [facility]-IR-1 Chest x-ray, 2 views, AP and lateral, interpreted by myself shows no acute abnormality. Also read by the radiologist and agrees its negative. Hip and pelvis x-ray. Of both the right and left hips. Showed arthritic changes. No fracture or dislocation. Interpreted again both by myself and the radiologist. Discharge Plan Dx/Rx/DC Orders Clinical Impression: Fall, Unable to ambulate, Contusion of hip, History of atrial fibrillation, History of TIAs, Chronic anticoagulation, History of dementia, Adult failure to thrive Disposition Disposition: Acute Care Hospital [facility] What to do if you have Problems For any increased pain, shortness of breath, bleeding, nausea or vomiting, chestpain, or any unexpected problems, contact your Primary Care Provider. Call [facility] ([phone]) or report to the closest Emergency Room. Call 911 if necessary. 09/01/24 1025 <Electronically signed by Inderjit Gillespie MD> Cosigner Signature (if applicable): CC: Dr. 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- Primary Long-term (current) 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 Paroxysmal atrial fibrillation (HCC) 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- Primary Long-term (current) 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 Paroxysmal atrial fibrillation (HCC) Atrial [facility] Diagnosis Essential hypertension, benign- Primary Atherosclerosis 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, unspecified vessel or lesion type, unspecified whether pauma or transplanted heart Paroxysmal atrial fibrillation (HCC) Atrial fibrillation Primary osteoarthritis of both knees Primary localized osteoarthrosis, lower leg [facility] Diagnosis Atherosclerosis 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, unspecified vessel or lesion type, unspecified whether pauma or transplanted heart- Primary Essential hypertension, benign [facility] current use of anticoagulant- Primary Long-term (current) 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 Paroxysmal atrial fibrillation (HCC) Atrial [facility] Diagnosis Elevated INR- Primary Abnormal coagulation profile [facility] current use of anticoagulant- Primary Long-term (current) 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 Paroxysmal atrial fibrillation (HCC) Atrial [facility] Diagnosis Encounter for Medicare annual wellness exam- Primary Routine general medical examination at a health care facility Paroxysmal atrial fibrillation (HCC) Atrial fibrillation Essential hypertension, benign [facility] current use of anticoagulant- Primary Long-term (current) 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 Encounter for monitoring Coumadin therapy Encounter for therapeutic drug monitoring [facility] Diagnosis [facility] current use of anticoagulant- Primary Long-term (current) 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 Paroxysmal atrial fibrillation (HCC) Atrial fibrillation [facility] Diagnosis [facility] current use of anticoagulant- Primary Long-term (current) 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 Paroxysmal atrial fibrillation (HCC) Atrial fibrillation [facility] Diagnosis Onset Date Resolution Status Chronic anticoagulation acut e TIA (transient ischemic attack) acute CAD (coronary artery disease) [facility] Work Phone: Evaluation note* Diagnosis Onset Date Resolution Status Chronic anticoagulation acut e Stroke-like symptoms acute TIA (transient ischemic attack) acute CAD (coronary artery disease) [facility] Work Phone: Evaluation note* Diagnosis Hospital discharge follow-up- Primary Other follow-up examination Encounter for immunization Need for other specified prophylactic vaccination against single bacterial disease TIA (transient ischemic attack) Unspecified transient cerebral ischemia Thyroid nodule Nontoxic uninodular goiter Essential hypertension, benign Paroxysmal atrial fibrillation (HCC) Atrial fibrillation Atherosclerosis 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, unspecified vessel or lesion type, unspecified whether pauma or transplanted heart [facility]* 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- Primary Long-term (current) 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 Paroxysmal atrial fibrillation (HCC) Atrial fibrillation [facility] 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- Primary Long-term (current) 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 Paroxysmal atrial fibrillation (HCC) Atrial fibrillation [facility] Diagnosis [facility] current use of anticoagulant- Primary Long-term (current) 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 Paroxysmal atrial fibrillation (HCC) Atrial fibrillation [facility]* Diagnosis Encounter for Medicare annual wellness exam- Primary Routine general medical examination at a [facility] care facility Paroxysmal atrial fibrillation (HCC) Atrial fibrillation Essential hypertension, benign Hyperlipidemia, unspecified hyperlipidemia type documented [facility]* 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- Primary Long-term (current) 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 Paroxysmal atrial fibrillation (HCC) Atrial fibrillation [facility] Diagnosis [facility] current use of anticoagulant- Primary Long-term (current) 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 Paroxysmal atrial fibrillation (HCC) Atrial fibrillation [facility] Diagnosis [facility] current use of anticoagulant- Primary Long-term (current) 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 Paroxysmal atrial fibrillation (HCC) Atrial fibrillation [facility] 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- Primary Long-term (current) 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 Paroxysmal atrial fibrillation (HCC) Atrial fibrillation [facility]No assessment information [facility]test[facility] Work Phone: Evaluation note* 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- Primary Long-term (current) 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 Paroxysmal atrial fibrillation (HCC) Atrial fibrillation [facility]* Diagnosis Cerebral infarction, unspecified mechanism (HCC)- Primary Generalized weakness Other malaise and fatigue Speech disturbance, unspecified type Hyperlipidemia, unspecified hyperlipidemia type Essential hypertension, benign Paroxysmal atrial fibrillation (HCC) Atrial fibrillation [facility]* Diagnosis Cerebral infarction, unspecified mechanism (HCC) documented [facility]* 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- Primary Long-term (current) 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 Paroxysmal atrial fibrillation (HCC) Atrial fibrillation [facility]* Diagnosis Essential hypertension, benign- Primary Paroxysmal atrial fibrillation (HCC) Atrial fibrillation Atherosclerosis 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, unspecified vessel or lesion type, unspecified whether pauma or transplanted heart Hyperlipidemia, unspecified hyperlipidemia type History of stroke with 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 Speech disturbance, unspecified type [facility]* Diagnosis Abnormal CBC- Primary Other abnormal blood chemistry [facility]* Diagnosis [facility] current use of anticoagulant- Primary Long-term (current) 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 Paroxysmal atrial fibrillation (HCC) Atrial fibrillation [facility]* 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- Primary Long-term (current) 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 Paroxysmal atrial fibrillation (HCC) Atrial fibrillation [facility] Diagnosis [facility] current use of anticoagulant- Primary Long-term (current) 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 Paroxysmal atrial fibrillation (HCC) Atrial fibrillation [facility] Diagnosis [facility] current use of anticoagulant- Primary Long-term (current) 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 Paroxysmal atrial fibrillation (HCC) [facility]rial [facility] Diagnosis 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, psychotic disturbance, mood disturbance, or anxiety (HCC)- Primary Essential hypertension, benign Paroxysmal atrial fibrillation (HCC) Atrial fibrillation [facility] Diagnosis Edema of both lower legs- Primary [facility] Diagnosis [facility] current use of anticoagulant- Primary Long-term (current) 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 Paroxysmal atrial fibrillation (HCC) Atrial fibrillation [facility] Diagnosis [facility] current use of anticoagulant Long-term (current) 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 Paroxysmal atrial fibrillation (HCC) Atrial fibrillation [facility] Diagnosis Essential hypertension, benign- Primary Hyperlipidemia, unspecified hyperlipidemia type Edema of both lower legs Paroxysmal atrial fibrillation (HCC) Atrial fibrillation History of stroke with 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, psychotic disturbance, mood disturbance, or anxiety (HCC) Urinary frequency Abnormal CBC Other abnormal blood chemistry [facility] 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- Primary Long-term (current) 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 Paroxysmal atrial fibrillation (HCC) Atrial fibrillation [facility] 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- Primary Long-term (current) 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 Paroxysmal atrial fibrillation (HCC) Atrial fibrillation [facility]* Diagnosis Left hip pain Pain in joint, pelvic region and thigh [facility] Diagnosis [facility] current use of anticoagulant- Primary Long-term (current) 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 Paroxysmal atrial fibrillation (HCC) Atrial fibrillation [facility] Diagnosis Acute right-sided low back pain, unspecified whether sciatica present [facility] Diagnosis Paroxysmal atrial fibrillation (HCC)- Primary [facility]rial [facility] current use of anticoagulant- Primary Long-term (current) 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 Paroxysmal atrial fibrillation (HCC) Atrial fibrillation [facility] 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- Primary Long-term (current) 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 Paroxysmal atrial fibrillation (HCC) Atrial fibrillation documented in this encounter [facility] note* Diagnosis Dementia, unspecified dementia severity, unspecified dementia type, unspecified whether behavioral, psychotic, or mood disturbance or anxiety (HCC)- Primary documented in this encounter [facility] note* 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- Primary Long-term (current) 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 Paroxysmal atrial fibrillation (HCC) Atrial fibrillation documented in this encounter [facility] note* Diagnosis Dementia, unspecified dementia severity, unspecified dementia type, unspecified whether behavioral, psychotic, or mood disturbance or anxiety (HCC)- Primary Cognitive impairment Unspecified persistent mental disorders due to conditions classified elsewhere Cognitive impairment, mild, so stated Mild cognitive impairment, so stated Shuffling gait Abnormality of gait Ambulatory dysfunction Difficulty in walking Balance disorder Other symptoms involving nervous and musculoskeletal systems documented in this encounter [facility] note* Diagnosis Cognitive impairment, mild, so stated Mild cognitive impairment, so stated documented in this encounter [facility] note* Diagnosis Essential hypertension, benign- Primary Hyperlipidemia, unspecified hyperlipidemia type Atherosclerosis 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, unspecified vessel or lesion type, unspecified whether pauma or transplanted heart Paroxysmal atrial fibrillation (HCC) Atrial fibrillation Edema of both lower legs History of stroke with 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 Dementia, unspecified dementia severity, unspecified dementia type, unspecified whether behavioral, psychotic, or mood disturbance or anxiety (HCC) documented in this encounter [facility] note* 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) Paralysis agitans documented in this encounter [facility] note* Diagnosis Bursitis of right elbow, unspecified bursa- Primary [facility] Diagnosis Moderate dementia without behavioral disturbance, psychotic disturbance, mood disturbance, or anxiety, unspecified dementia type (HCC)- Primary Hallucinations Screening for depression Encounter for screening examination for other mental health and behavioral disorders documented in this encounter [facility] for referral (narrative)* Diagnostic Procedure Only (Routine) - Authorized Specialty Diagnoses / Procedures Referred By Jennifer t Referred To Contact US IMAGING Diagnoses Thyroid nodule Procedures US THYROID/PARATHYROID US SOFT TISSUE HEAD & NECK REAL TIME IMGE DOCM Stas Mora MD [address] [place] [address] Us Imaging Referral ID Status Reason Start Date Expiration Date Visits Requested Visits Authorized [id number] Authorized Auto-Generat ed Referral 12/26/2021 01/25/2023 1 1 [facility] for referral (narrative)* Diagnostic Procedure Only (Urgent) - Closed Specialty Diagnoses / Procedures Referred By Contac t Referred To Contact XR IMAGING Diagnoses Left hip pain Procedures XR HIP GENERAL 3V PELV/AP/LAT LEFT RADEX HIP UNILATERAL WITH PELVIS 2-3 VIEWS Jenna Fitzpatrick APRN.[employer] FOLDING MACHINE OPERATOR [address] [id number] [place] [address] Referral ID Status Reason Start Date Expiration Date V isits Requested Visits Authorized [id number] Closed Auto-Generate d Referral 05/21/2022 06/20/2023 1 1 [facility] for referral (narrative)No reason for referral information [facility]: Reason for visit Narrative* Diagnostic Procedure Only (Urgent) - Closed Specialty Diagnoses / Procedures Referred By Contac t Referred To Contact XR IMAGING Diagnoses Left hip pain Procedures XR HIP GENERAL 3V PELV/AP/LAT LEFT RADEX HIP UNILATERAL WITH PELVIS 2-3 VIEWS Jenna Fitzpatrick APRN.[employer]ATOR [address] [place] [address] [place] [address] Referral ID Status Reason Start Date Expiration Date V isits Requested Visits Authorized [id number] Closed Auto-Generate d Referral 05/21/2022 06/20/2023 1 1 [facility] for visit Narrative* MRI/CT (Routine) - Closed Specialty Diagnoses / Procedures Referred By Contac t Referred To Contact MR IMAGING Diagnoses Cognitive impairment, mild, so stated Procedures MRI BRAIN W QUANT WO IVCON MRI BRAIN BRAIN STEM W/O CONTRAST MATERIAL Luciana Cisneros MD [address] [place] [address] Phone: tel: fax: [place] [id number] Referral ID Status Reason Start Date Expiration Date V isits Requested Visits Authorized [id number] Closed Auto-Generate d Referral 05/11/2024 07/10/2024 1 1 [facility] Summary Purpose Family History Relationship Condition Age at Onset Recorded Date/T eva Unknown Family History?No pertinent history Unkno wn September 08, 2016 1:12pm Family History?No pertinent history Unkno wn September 08, 2016 1:12pm Relationship Condition Age at Onset Recorded Date/T eva Not Specified Alcoholism Unknown Advance Directives Advance Directive Response Recorded Date/ Time Living Will Yes December 21 6:17pm Power of Lathe Winder Yes December 21 022 6:17pm Name of Medical Power of Lathe Winder IRAJ HULL , DAUGHTER December 21, 2021 6:17pm Advance Directive Response Recorded Date/ Time Name of Medical Power of Lathe Winder Anabella Hull December 21, 2021 8:06pm Living Will Yes December 21 8:06pm Power of Lathe Winder Yes December 21 8:06pm Advance Directive Response Recorded Date/ Time Living Will Yes February 10, 023 3:17pm Power of Lathe Winder Yes February 10, 2023 3:17pm Name of Medical Power of Lathe Winder daughter-yomi hull February 10, 2023 3:17pm Advance Directive Response Recorded Date/ Time Do you have a Healthcare Power of Lathe Winder? Yes September 01, 2024 7:36am Name of Medical Power of Lathe Winder anabella hull September 01, 2024 7:36am Chief Complaint and Reason for Visit Chief Complaint NEURO Reason for Visit Chronic anticoagulat ion TIA (transient ischemic attack) CAD (coronary artery disease) Chief Complaint TIA TIA (cardiology) TIA (cardiology) Reason for Visit Chronic anticoagulat ion Stroke-like symptoms TIA (transient ischemic attack) CAD (coronary artery disease) Chief Complaint fatigue Chief Complaint Admit Date DEBILITY, MECHANICAL FALL September 01 10:24am Reason for Visit Admit Date Adult failure to thrive September 01, 2024 10:24am Chronic anticoagulation September 01, 2024 10:24am Contusion of hip September 01, 2024 10:2 4am Fall September 01, 2024 10:2 4am History of atrial fibrillation August 10:24am History of dementia September 01, 2024 10:2 4am History of TIAs September 01, 2024 10:2 4am Unable to ambulate September 01, 2024 10:2 4am Reason for Referral Specialty Diagnoses / Procedures Referred By Jennifer t Referred To Contact [facility] Diagnoses Shuffling gait Ambulatory dysfunction Balance disorder Procedures CONSULT TO PHYSICAL THERAPY PHYSICAL THERAPY EVALUATION HIGH COMPLEX 45 MINS Luciana Cisneros MD [address] [place] [address] [facility] [place] [address] [place] [address] Referral ID Status Reason Start Date Expiration Date Visits Requested Visits Authorized [id number] Pending Review Auto-Generat ed Referral 04/27/2024 04/27/2025 1 1 Specialty Diagnoses / Procedures Referred By Jennifer gomez Referred To Contact MR IMAGING Diagnoses Cognitive impairment, mild, so stated Procedures MRI BRAIN W QUANT WO IVCON MRI BRAIN BRAIN STEM W/O CONTRAST MATERIAL Luciana Cisneros MD [address] [place] [address] Mr Imaging [id number] Referral ID Status Reason Start Date Expiration Date Visits Requested Visits Authorized [id number] Pending Review Auto-Generat ed Referral 04/27/2024 05/27/2025 1 1 Specialty Diagnoses / Procedures Referred By Jennifer gomez Referred To Contact Gerontology Diagnoses Dementia, unspecified dementia severity, unspecified dementia type, unspecified whether behavioral, psychotic, or mood disturbance or anxiety (HCC) Procedures CONSULT TO GERIATRICS OFFICE/OUTPATIENT [facility] MDM 60 MINUTES Stas Mora MD [address] [place] [address] Referral ID Status Reason Start Date Expiration Date Visits Requested Visits Authorized [id number] Authorized PCP Requested Referral 04/25/2024 04/25/2025 1 1 Specialty Diagnoses / Procedures Referred By Jennifer gomez Referred To Contact MR IMAGING Diagnoses Cerebral infarction, unspecified mechanism (HCC) Procedures MRI BRAIN WO IVCON MRI BRAIN BRAIN STEM W/O CONTRAST MATERIAL Stas Mora MD [address] [place] [address] [place] [id number] Referral ID Status Reason Start Date Expiration Date Visits Requested Visits Authorized [id number] Pending Review Auto-Genera eli Referral Patient Cleared - Admin/Chair man/Directo r advise to proceed or did not respond 3 03/17/2024 1 1 Additional Source Comments (unrecognized sect ion and content) No Status Records FoundNo Status Records FoundNo Status Records FoundNo Status Records FoundNo Status Records FoundNo Status Records FoundNo Status Records Found INFORMATION SOURCE (unrecogn ized section and content) DATE CREATED AUTHOR [facility] DATE CREATED AUTHOR AUTHOR'S ORGANIZ ATION [facility]11[facility] DATE CREATED AUTHOR AUTHOR'S ORGANIZ ATION 09/15/2017 [facility] DATE CREATED AUTHOR AUTHOR'S ORGANIZ ATION 02/16/2023 [facility] DATE CREATED AUTHOR AUTHOR'S ORGANIZ ATION 08/12/2023 [facility] ([place]) DATE CREATED AUTHOR AUTHOR'S ORGANIZ ATION 05/24/2024 [facility] DATE CREATED AUTHOR AUTHOR'S ORGANIZ ATION 08/04/2024 [facility] Source Comments (unrecognize d section and content) In the event this informatio n is protected by the Federal Confidentiality of Alcohol and Drug Abuse Patient Records regulations: The Federal rules restrict any use of the information to criminally investigate or prosecute any alcohol or drug abuse patient.[facility] RehabilitationIn the event this information is protected by the Federal Confidentiality of Alcohol and Drug Abuse Patient Records regulations: The Federal rules restrict any use of the information to criminally investigate or prosecute any alcohol or drug abuse patient.[facility] RehabilitationIn the event this information is protected by the Federal Confidentiality of Alcohol and Drug Abuse Patient Records regulations: The Federal rules restrict any use of the information to criminally investigate or prosecute any alcohol or drug abuse patient.[facility] RehabilitationIn the event this information is protected by the Federal Confidentiality of Alcohol and Drug Abuse Patient Records regulations: The Federal rules restrict any use of the information to criminally investigate or prosecute any alcohol or drug abuse patient.[facility] RehabilitationIn the event this information is protected by the Federal Confidentiality of Alcohol and Drug Abuse Patient Records regulations: The Federal rules restrict any use of the information to criminally investigate or prosecute any alcohol or drug abuse patient.[facility] RehabilitationIn the event this information is protected by the Federal Confidentiality of Alcohol and Drug Abuse Patient Records regulations: The Federal rules restrict any use of the information to criminally investigate or prosecute any alcohol or drug abuse patient.[facility] RehabilitationIn the event this information is protected by the Federal Confidentiality of Alcohol and Drug Abuse Patient Records regulations: The Federal rules restrict any use of the information to criminally investigate or prosecute any alcohol or drug abuse patient.[facility] RehabilitationIn the event this information is protected by the Federal Confidentiality of Alcohol and Drug Abuse Patient Records regulations: The Federal rules restrict any use of the information to criminally investigate or prosecute any alcohol or drug abuse patient.[facility] RehabilitationIn the event this information is protected by the Federal Confidentiality of Alcohol and Drug Abuse Patient Records regulations: The Federal rules restrict any use of the information to criminally investigate or prosecute any alcohol or drug abuse patient.[facility] RehabilitationIn the event this information is protected by the Federal Confidentiality of Alcohol and Drug Abuse Patient Records regulations: The Federal rules restrict any use of the information to criminally investigate or prosecute any alcohol or drug abuse patient.[facility] RehabilitationIn the event this information is protected by the Federal Confidentiality of Alcohol and Drug Abuse Patient Records regulations: The Federal rules restrict any use of the information to criminally investigate or prosecute any alcohol or drug abuse patient.[facility] RehabilitationIn the event this information is protected by the Federal Confidentiality of Alcohol and Drug Abuse Patient Records regulations: The Federal rules restrict any use of the information to criminally investigate or prosecute any alcohol or drug abuse patient.[facility] RehabilitationIn the event this information is protected by the Federal Confidentiality of Alcohol and Drug Abuse Patient Records regulations: The Federal rules restrict any use of the information to criminally investigate or prosecute any alcohol or drug abuse patient.[facility] RehabilitationIn the event this information is protected by the Federal Confidentiality of Alcohol and Drug Abuse Patient Records regulations: The Federal rules restrict any use of the information to criminally investigate or prosecute any alcohol or drug abuse patient.[facility] RehabilitationIn the event this information is protected by the Federal Confidentiality of Alcohol and Drug Abuse Patient Records regulations: The Federal rules restrict any use of the information to criminally investigate or prosecute any alcohol or drug abuse patient.[facility] RehabilitationIn the event this information is protected by the Federal Confidentiality of Alcohol and Drug Abuse Patient Records regulations: The Federal rules restrict any use of the information to criminally investigate or prosecute any alcohol or drug abuse patient.[facility] RehabilitationIn the event this information is protected by the Federal Confidentiality of Alcohol and Drug Abuse Patient Records regulations: The Federal rules restrict any use of the information to criminally investigate or prosecute any alcohol or drug abuse patient.[facility] RehabilitationIn the event this information is protected by the Federal Confidentiality of Alcohol and Drug Abuse Patient Records regulations: The Federal rules restrict any use of the information to criminally investigate or prosecute any alcohol or drug abuse patient.[facility] RehabilitationIn the event this information is protected by the Federal Confidentiality of Alcohol and Drug Abuse Patient Records regulations: The Federal rules restrict any use of the information to criminally investigate or prosecute any alcohol or drug abuse patient.[facility] RehabilitationIn the event this information is protected by the Federal Confidentiality of Alcohol and Drug Abuse Patient Records regulations: The Federal rules restrict any use of the information to criminally investigate or prosecute any alcohol or drug abuse patient.[facility] RehabilitationIn the event this information is protected by the Federal Confidentiality of Alcohol and Drug Abuse Patient Records regulations: The Federal rules restrict any use of the information to criminally investigate or prosecute any alcohol or drug abuse patient.[facility] RehabilitationIn the event this information is protected by the Federal Confidentiality of Alcohol and Drug Abuse Patient Records regulations: The Federal rules restrict any use of the information to criminally investigate or prosecute any alcohol or drug abuse patient.[facility] RehabilitationIn the event this information is protected by the Federal Confidentiality of Alcohol and Drug Abuse Patient Records regulations: The Federal rules restrict any use of the information to criminally investigate or prosecute any alcohol or drug abuse patient.[facility] RehabilitationIn the event this information is protected by the Federal Confidentiality of Alcohol and Drug Abuse Patient Records regulations: The Federal rules restrict any use of the information to criminally investigate or prosecute any alcohol or drug abuse patient.[facility] RehabilitationIn the event this information is protected by the Federal Confidentiality of Alcohol and Drug Abuse Patient Records regulations: The Federal rules restrict any use of the information to criminally investigate or prosecute any alcohol or drug abuse patient.[facility] RehabilitationIn the event this information is protected by the Federal Confidentiality of Alcohol and Drug Abuse Patient Records regulations: The Federal rules restrict any use of the information to criminally investigate or prosecute any alcohol or drug abuse patient.[facility] RehabilitationIn the event this information is protected by the Federal Confidentiality of Alcohol and Drug Abuse Patient Records regulations: The Federal rules restrict any use of the information to criminally investigate or prosecute any alcohol or drug abuse patient.[facility] RehabilitationIn the event this information is protected by the Federal Confidentiality of Alcohol and Drug Abuse Patient Records regulations: The Federal rules restrict any use of the information to criminally investigate or prosecute any alcohol or drug abuse patient.[facility] RehabilitationIn the event this information is protected by the Federal Confidentiality of Alcohol and Drug Abuse Patient Records regulations: The Federal rules restrict any use of the information to criminally investigate or prosecute any alcohol or drug abuse patient.[facility] RehabilitationIn the event this information is protected by the Federal Confidentiality of Alcohol and Drug Abuse Patient Records regulations: The Federal rules restrict any use of the information to criminally investigate or prosecute any alcohol or drug abuse patient.[facility] RehabilitationIn the event this information is protected by the Federal Confidentiality of Alcohol and Drug Abuse Patient Records regulations: The Federal rules restrict any use of the information to criminally investigate or prosecute any alcohol or drug abuse patient.[facility] RehabilitationIn the event this information is protected by the Federal Confidentiality of Alcohol and Drug Abuse Patient Records regulations: The Federal rules restrict any use of the information to criminally investigate or prosecute any alcohol or drug abuse patient.[facility] RehabilitationIn the event this information is protected by the Federal Confidentiality of Alcohol and Drug Abuse Patient Records regulations: The Federal rules restrict any use of the information to criminally investigate or prosecute any alcohol or drug abuse patient.[facility] RehabilitationIn the event this information is protected by the Federal Confidentiality of Alcohol and Drug Abuse Patient Records regulations: The Federal rules restrict any use of the information to criminally investigate or prosecute any alcohol or drug abuse patient.[facility] RehabilitationIn the event this information is protected by the Federal Confidentiality of Alcohol and Drug Abuse Patient Records regulations: The Federal rules restrict any use of the information to criminally investigate or prosecute any alcohol or drug abuse patient.[facility] RehabilitationIn the event this information is protected by the Federal Confidentiality of Alcohol and Drug Abuse Patient Records regulations: The Federal rules restrict any use of the information to criminally investigate or prosecute any alcohol or drug abuse patient.[facility] RehabilitationIn the event this information is protected by the Federal Confidentiality of Alcohol and Drug Abuse Patient Records regulations: The Federal rules restrict any use of the information to criminally investigate or prosecute any alcohol or drug abuse patient.[facility] RehabilitationIn the event this information is protected by the Federal Confidentiality of Alcohol and Drug Abuse Patient Records regulations: The Federal rules restrict any use of the information to criminally investigate or prosecute any alcohol or drug abuse patient.[facility] RehabilitationIn the event this information is protected by the Federal Confidentiality of Alcohol and Drug Abuse Patient Records regulations: The Federal rules restrict any use of the information to criminally investigate or prosecute any alcohol or drug abuse patient.[facility] RehabilitationIn the event this information is protected by the Federal Confidentiality of Alcohol and Drug Abuse Patient Records regulations: The Federal rules restrict any use of the information to criminally investigate or prosecute any alcohol or drug abuse patient.[facility] RehabilitationIn the event this information is protected by the Federal Confidentiality of Alcohol and Drug Abuse Patient Records regulations: The Federal rules restrict any use of the information to criminally investigate or prosecute any alcohol or drug abuse patient.[facility] RehabilitationIn the event this information is protected by the Federal Confidentiality of Alcohol and Drug Abuse Patient Records regulations: The Federal rules restrict any use of the information to criminally investigate or prosecute any alcohol or drug abuse patient.[facility] RehabilitationIn the event this information is protected by the Federal Confidentiality of Alcohol and Drug Abuse Patient Records regulations: The Federal rules restrict any use of the information to criminally investigate or prosecute any alcohol or drug abuse patient.[facility] RehabilitationIn the event this information is protected by the Federal Confidentiality of Alcohol and Drug Abuse Patient Records regulations: The Federal rules restrict any use of the information to criminally investigate or prosecute any alcohol or drug abuse patient.[facility] RehabilitationIn the event this information is protected by the Federal Confidentiality of Alcohol and Drug Abuse Patient Records regulations: The Federal rules restrict any use of the information to criminally investigate or prosecute any alcohol or drug abuse patient.[facility] RehabilitationIn the event this information is protected by the Federal Confidentiality of Alcohol and Drug Abuse Patient Records regulations: The Federal rules restrict any use of the information to criminally investigate or prosecute any alcohol or drug abuse patient.[facility] RehabilitationIn the event this information is protected by the Federal Confidentiality of Alcohol and Drug Abuse Patient Records regulations: The Federal rules restrict any use of the information to criminally investigate or prosecute any alcohol or drug abuse patient.[facility] RehabilitationIn the event this information is protected by the Federal Confidentiality of Alcohol and Drug Abuse Patient Records regulations: The Federal rules restrict any use of the information to criminally investigate or prosecute any alcohol or drug abuse patient.[facility] RehabilitationIn the event this information is protected by the Federal Confidentiality of Alcohol and Drug Abuse Patient Records regulations: The Federal rules restrict any use of the information to criminally investigate or prosecute any alcohol or drug abuse patient.[facility] RehabilitationIn the event this information is protected by the Federal Confidentiality of Alcohol and Drug Abuse Patient Records regulations: The Federal rules restrict any use of the information to criminally investigate or prosecute any alcohol or drug abuse patient.[facility] RehabilitationIn the event this information is protected by the Federal Confidentiality of Alcohol and Drug Abuse Patient Records regulations: The Federal rules restrict any use of the information to criminally investigate or prosecute any alcohol or drug abuse patient.[facility] RehabilitationIn the event this information is protected by the Federal Confidentiality of Alcohol and Drug Abuse Patient Records regulations: The Federal rules restrict any use of the information to criminally investigate or prosecute any alcohol or drug abuse patient.[facility] RehabilitationIn the event this information is protected by the Federal Confidentiality of Alcohol and Drug Abuse Patient Records regulations: The Federal rules restrict any use of the information to criminally investigate or prosecute any alcohol or drug abuse patient.[facility] RehabilitationIn the event this information is protected by the Federal Confidentiality of Alcohol and Drug Abuse Patient Records regulations: The Federal rules restrict any use of the information to criminally investigate or prosecute any alcohol or drug abuse patient.[facility] RehabilitationIn the event this information is protected by the Federal Confidentiality of Alcohol and Drug Abuse Patient Records regulations: The Federal rules restrict any use of the information to criminally investigate or prosecute any alcohol or drug abuse patient.[facility] RehabilitationIn the event this information is protected by the Federal Confidentiality of Alcohol and Drug Abuse Patient Records regulations: The Federal rules restrict any use of the information to criminally investigate or prosecute any alcohol or drug abuse patient.[facility] RehabilitationIn the event this information is protected by the Federal Confidentiality of Alcohol and Drug Abuse Patient Records regulations: The Federal rules restrict any use of the information to criminally investigate or prosecute any alcohol or drug abuse patient.[facility] RehabilitationIn the event this information is protected by the Federal Confidentiality of Alcohol and Drug Abuse Patient Records regulations: The Federal rules restrict any use of the information to criminally investigate or prosecute any alcohol or drug abuse patient.[facility] RehabilitationIn the event this information is protected by the Federal Confidentiality of Alcohol and Drug Abuse Patient Records regulations: The Federal rules restrict any use of the information to criminally investigate or prosecute any alcohol or drug abuse patient.[facility] RehabilitationIn the event this information is protected by the Federal Confidentiality of Alcohol and Drug Abuse Patient Records regulations: The Federal rules restrict any use of the information to criminally investigate or prosecute any alcohol or drug abuse patient.[facility] RehabilitationIn the event this information is protected by the Federal Confidentiality of Alcohol and Drug Abuse Patient Records regulations: The Federal rules restrict any use of the information to criminally investigate or prosecute any alcohol or drug abuse patient.[facility] RehabilitationIn the event this information is protected by the Federal Confidentiality of Alcohol and Drug Abuse Patient Records regulations: The Federal rules restrict any use of the information to criminally investigate or prosecute any alcohol or drug abuse patient.[facility] RehabilitationIn the event this information is protected by the Federal Confidentiality of Alcohol and Drug Abuse Patient Records regulations: The Federal rules restrict any use of the information to criminally investigate or prosecute any alcohol or drug abuse patient.[facility] RehabilitationIn the event this information is protected by the Federal Confidentiality of Alcohol and Drug Abuse Patient Records regulations: The Federal rules restrict any use of the information to criminally investigate or prosecute any alcohol or drug abuse patient.[facility] RehabilitationIn the event this information is protected by the Federal Confidentiality of Alcohol and Drug Abuse Patient Records regulations: The Federal rules restrict any use of the information to criminally investigate or prosecute any alcohol or drug abuse patient.[facility] RehabilitationIn the event this information is protected by the Federal Confidentiality of Alcohol and Drug Abuse Patient Records regulations: The Federal rules restrict any use of the information to criminally investigate or prosecute any alcohol or drug abuse patient.[facility] RehabilitationIn the event this information is protected by the Federal Confidentiality of Alcohol and Drug Abuse Patient Records regulations: The Federal rules restrict any use of the information to criminally investigate or prosecute any alcohol or drug abuse patient.[facility] RehabilitationIn the event this information is protected by the Federal Confidentiality of Alcohol and Drug Abuse Patient Records regulations: The Federal rules restrict any use of the information to criminally investigate or prosecute any alcohol or drug abuse patient.[facility] RehabilitationIn the event this information is protected by the Federal Confidentiality of Alcohol and Drug Abuse Patient Records regulations: The Federal rules restrict any use of the information to criminally investigate or prosecute any alcohol or drug abuse patient.[facility] RehabilitationIn the event this information is protected by the Federal Confidentiality of Alcohol and Drug Abuse Patient Records regulations: The Federal rules restrict any use of the information to criminally investigate or prosecute any alcohol or drug abuse patient.[facility] RehabilitationIn the event this information is protected by the Federal Confidentiality of Alcohol and Drug Abuse Patient Records regulations: The Federal rules restrict any use of the information to criminally investigate or prosecute any alcohol or drug abuse patient.[facility] RehabilitationIn the event this information is protected by the Federal Confidentiality of Alcohol and Drug Abuse Patient Records regulations: The Federal rules restrict any use of the information to criminally investigate or prosecute any alcohol or drug abuse patient.[facility] RehabilitationIn the event this information is protected by the Federal Confidentiality of Alcohol and Drug Abuse Patient Records regulations: The Federal rules restrict any use of the information to criminally investigate or prosecute any alcohol or drug abuse patient.[facility] RehabilitationIn the event this information is protected by the Federal Confidentiality of Alcohol and Drug Abuse Patient Records regulations: The Federal rules restrict any use of the information to criminally investigate or prosecute any alcohol or drug abuse patient.[facility] RehabilitationIn the event this information is protected by the Federal Confidentiality of Alcohol and Drug Abuse Patient Records regulations: The Federal rules restrict any use of the information to criminally investigate or prosecute any alcohol or drug abuse patient.[facility] RehabilitationIn the event this information is protected by the Federal Confidentiality of Alcohol and Drug Abuse Patient Records regulations: The Federal rules restrict any use of the information to criminally investigate or prosecute any alcohol or drug abuse patient.[facility] RehabilitationIn the event this information is protected by the Federal Confidentiality of Alcohol and Drug Abuse Patient Records regulations: The Federal rules restrict any use of the information to criminally investigate or prosecute any alcohol or drug abuse patient.[facility] RehabilitationIn the event this information is protected by the Federal Confidentiality of Alcohol and Drug Abuse Patient Records regulations: The Federal rules restrict any use of the information to criminally investigate or prosecute any alcohol or drug abuse patient.[facility] RehabilitationIn the event this information is protected by the Federal Confidentiality of Alcohol and Drug Abuse Patient Records regulations: The Federal rules restrict any use of the information to criminally investigate or prosecute any alcohol or drug abuse patient.[facility] RehabilitationIn the event this information is protected by the Federal Confidentiality of Alcohol and Drug Abuse Patient Records regulations: The Federal rules restrict any use of the information to criminally investigate or prosecute any alcohol or drug abuse patient.[facility] RehabilitationIn the event this information is protected by the Federal Confidentiality of Alcohol and Drug Abuse Patient Records regulations: The Federal rules restrict any use of the information to criminally investigate or prosecute any alcohol or drug abuse patient.[facility] RehabilitationIn the event this information is protected by the Federal Confidentiality of Alcohol and Drug Abuse Patient Records regulations: The Federal rules restrict any use of the information to criminally investigate or prosecute any alcohol or drug abuse patient.[facility] RehabilitationIn the event this information is protected by the Federal Confidentiality of Alcohol and Drug Abuse Patient Records regulations: The Federal rules restrict any use of the information to criminally investigate or prosecute any alcohol or drug abuse patient.[facility] RehabilitationIn the event this information is protected by the Federal Confidentiality of Alcohol and Drug Abuse Patient Records regulations: The Federal rules restrict any use of the information to criminally investigate or prosecute any alcohol or drug abuse patient.[facility] RehabilitationIn the event this information is protected by the Federal Confidentiality of Alcohol and Drug Abuse Patient Records regulations: The Federal rules restrict any use of the information to criminally investigate or prosecute any alcohol or drug abuse patient.[facility] RehabilitationIn the event this information is protected by the Federal Confidentiality of Alcohol and Drug Abuse Patient Records regulations: The Federal rules restrict any use of the information to criminally investigate or prosecute any alcohol or drug abuse patient.[facility] RehabilitationIn the event this information is protected by the Federal Confidentiality of Alcohol and Drug Abuse Patient Records regulations: The Federal rules restrict any use of the information to criminally investigate or prosecute any alcohol or drug abuse patient.[facility] RehabilitationIn the event this information is protected by the Federal Confidentiality of Alcohol and Drug Abuse Patient Records regulations: The Federal rules restrict any use of the information to criminally investigate or prosecute any alcohol or drug abuse patient.[facility] RehabilitationIn the event this information is protected by the Federal Confidentiality of Alcohol and Drug Abuse Patient Records regulations: The Federal rules restrict any use of the information to criminally investigate or prosecute any alcohol or drug abuse patient.[facility] RehabilitationIn the event this information is protected by the Federal Confidentiality of Alcohol and Drug Abuse Patient Records regulations: The Federal rules restrict any use of the information to criminally investigate or prosecute any alcohol or drug abuse patient.[facility] RehabilitationIn the event this information is protected by the Federal Confidentiality of Alcohol and Drug Abuse Patient Records regulations: The Federal rules restrict any use of the information to criminally investigate or prosecute any alcohol or drug abuse patient.[facility] RehabilitationIn the event this information is protected by the Federal Confidentiality of Alcohol and Drug Abuse Patient Records regulations: The Federal rules restrict any use of the information to criminally investigate or prosecute any alcohol or drug abuse patient.[facility] RehabilitationIn the event this information is protected by the Federal Confidentiality of Alcohol and Drug Abuse Patient Records regulations: The Federal rules restrict any use of the information to criminally investigate or prosecute any alcohol or drug abuse patient.[facility] RehabilitationIn the event this information is protected by the Federal Confidentiality of Alcohol and Drug Abuse Patient Records regulations: The Federal rules restrict any use of the information to criminally investigate or prosecute any alcohol or drug abuse patient.[facility] RehabilitationIn the event this information is protected by the Federal Confidentiality of Alcohol and Drug Abuse Patient Records regulations: The Federal rules restrict any use of the information to criminally investigate or prosecute any alcohol or drug abuse patient.[facility] RehabilitationIn the event this information is protected by the Federal Confidentiality of Alcohol and Drug Abuse Patient Records regulations: The Federal rules restrict any use of the information to criminally investigate or prosecute any alcohol or drug abuse patient.[facility] RehabilitationIn the event this information is protected by the Federal Confidentiality of Alcohol and Drug Abuse Patient Records regulations: The Federal rules restrict any use of the information to criminally investigate or prosecute any alcohol or drug abuse patient.[facility] RehabilitationIn the event this information is protected by the Federal Confidentiality of Alcohol and Drug Abuse Patient Records regulations: The Federal rules restrict any use of the information to criminally investigate or prosecute any alcohol or drug abuse patient.[facility] RehabilitationIn the event this information is protected by the Federal Confidentiality of Alcohol and Drug Abuse Patient Records regulations: The Federal rules restrict any use of the information to criminally investigate or prosecute any alcohol or drug abuse patient.[facility] RehabilitationIn the event this information is protected by the Federal Confidentiality of Alcohol and Drug Abuse Patient Records regulations: The Federal rules restrict any use of the information to criminally investigate or prosecute any alcohol or drug abuse patient.[facility] RehabilitationIn the event this information is protected by the Federal Confidentiality of Alcohol and Drug Abuse Patient Records regulations: The Federal rules restrict any use of the information to criminally investigate or prosecute any alcohol or drug abuse patient.[facility] RehabilitationIn the event this information is protected by the Federal Confidentiality of Alcohol and Drug Abuse Patient Records regulations: The Federal rules restrict any use of the information to criminally investigate or prosecute any alcohol or drug abuse patient.[facility] RehabilitationIn the event this information is protected by the Federal Confidentiality of Alcohol and Drug Abuse Patient Records regulations: The Federal rules restrict any use of the information to criminally investigate or prosecute any alcohol or drug abuse patient.[facility] RehabilitationIn the event this information is protected by the Federal Confidentiality of Alcohol and Drug Abuse Patient Records regulations: The Federal rules restrict any use of the information to criminally investigate or prosecute any alcohol or drug abuse patient.[facility] RehabilitationIn the event this information is protected by the Federal Confidentiality of Alcohol and Drug Abuse Patient Records regulations: The Federal rules restrict any use of the information to criminally investigate or prosecute any alcohol or drug abuse patient.[facility] RehabilitationIn the event this information is protected by the Federal Confidentiality of Alcohol and Drug Abuse Patient Records regulations: The Federal rules restrict any use of the information to criminally investigate or prosecute any alcohol or drug abuse patient.[facility] RehabilitationIn the event this information is protected by the Federal Confidentiality of Alcohol and Drug Abuse Patient Records regulations: The Federal rules restrict any use of the information to criminally investigate or prosecute any alcohol or drug abuse patient.[facility] RehabilitationIn the event this information is protected by the Federal Confidentiality of Alcohol and Drug Abuse Patient Records regulations: The Federal rules restrict any use of the information to criminally investigate or prosecute any alcohol or drug abuse patient.[facility] RehabilitationIn the event this information is protected by the Federal Confidentiality of Alcohol and Drug Abuse Patient Records regulations: The Federal rules restrict any use of the information to criminally investigate or prosecute any alcohol or drug abuse patient.[facility] RehabilitationIn the event this information is protected by the Federal Confidentiality of Alcohol and Drug Abuse Patient Records regulations: The Federal rules restrict any use of the information to criminally investigate or prosecute any alcohol or drug abuse patient.[facility] RehabilitationIn the event this information is protected by the Federal Confidentiality of Alcohol and Drug Abuse Patient Records regulations: The Federal rules restrict any use of the information to criminally investigate or prosecute any alcohol or drug abuse patient.[facility] RehabilitationIn the event this information is protected by the Federal Confidentiality of Alcohol and Drug Abuse Patient Records regulations: The Federal rules restrict any use of the information to criminally investigate or prosecute any alcohol or drug abuse patient.[facility] RehabilitationIn the event this information is protected by the Federal Confidentiality of Alcohol and Drug Abuse Patient Records regulations: The Federal rules restrict any use of the information to criminally investigate or prosecute any alcohol or drug abuse patient.[facility] RehabilitationIn the event this information is protected by the Federal Confidentiality of Alcohol and Drug Abuse Patient Records regulations: The Federal rules restrict any use of the information to criminally investigate or prosecute any alcohol or drug abuse patient.[facility] RehabilitationIn the event this information is protected by the Federal Confidentiality of Alcohol and Drug Abuse Patient Records regulations: The Federal rules restrict any use of the information to criminally investigate or prosecute any alcohol or drug abuse patient.[facility] RehabilitationIn the event this information is protected by the Federal Confidentiality of Alcohol and Drug Abuse Patient Records regulations: The Federal rules restrict any use of the information to criminally investigate or prosecute any alcohol or drug abuse patient.[facility] RehabilitationIn the event this information is protected by the Federal Confidentiality of Alcohol and Drug Abuse Patient Records regulations: The Federal rules restrict any use of the information to criminally investigate or prosecute any alcohol or drug abuse patient.[facility] RehabilitationIn the event this information is protected by the Federal Confidentiality of Alcohol and Drug Abuse Patient Records regulations: The Federal rules restrict any use of the information to criminally investigate or prosecute any alcohol or drug abuse patient.[facility] RehabilitationIn the event this information is protected by the Federal Confidentiality of Alcohol and Drug Abuse Patient Records regulations: The Federal rules restrict any use of the information to criminally investigate or prosecute any alcohol or drug abuse patient.[facility] RehabilitationIn the event this information is protected by the Federal Confidentiality of Alcohol and Drug Abuse Patient Records regulations: The Federal rules restrict any use of the information to criminally investigate or prosecute any alcohol or drug abuse patient.[facility] RehabilitationIn the event this information is protected by the Federal Confidentiality of Alcohol and Drug Abuse Patient Records regulations: The Federal rules restrict any use of the information to criminally investigate or prosecute any alcohol or drug abuse patient.[facility] RehabilitationIn the event this information is protected by the Federal Confidentiality of Alcohol and Drug Abuse Patient Records regulations: The Federal rules restrict any use of the information to criminally investigate or prosecute any alcohol or drug abuse patient.[facility] RehabilitationIn the event this information is protected by the Federal Confidentiality of Alcohol and Drug Abuse Patient Records regulations: The Federal rules restrict any use of the information to criminally investigate or prosecute any alcohol or drug abuse patient.[facility] RehabilitationIn the event this information is protected by the Federal Confidentiality of Alcohol and Drug Abuse Patient Records regulations: The Federal rules restrict any use of the information to criminally investigate or prosecute any alcohol or drug abuse patient.[facility] RehabilitationIn the event this information is protected by the Federal Confidentiality of Alcohol and Drug Abuse Patient Records regulations: The Federal rules restrict any use of the information to criminally investigate or prosecute any alcohol or drug abuse patient.[facility] RehabilitationIn the event this information is protected by the Federal Confidentiality of Alcohol and Drug Abuse Patient Records regulations: The Federal rules restrict any use of the information to criminally investigate or prosecute any alcohol or drug abuse patient.[facility] RehabilitationIn the event this information is protected by the Federal Confidentiality of Alcohol and Drug Abuse Patient Records regulations: The Federal rules restrict any use of the information to criminally investigate or prosecute any alcohol or drug abuse patient.[facility] RehabilitationIn the event this information is protected by the Federal Confidentiality of Alcohol and Drug Abuse Patient Records regulations: The Federal rules restrict any use of the information to criminally investigate or prosecute any alcohol or drug abuse patient.[facility] RehabilitationIn the event this information is protected by the Federal Confidentiality of Alcohol and Drug Abuse Patient Records regulations: The Federal rules restrict any use of the information to criminally investigate or prosecute any alcohol or drug abuse patient.[facility] RehabilitationIn the event this information is protected by the Federal Confidentiality of Alcohol and Drug Abuse Patient Records regulations: The Federal rules restrict any use of the information to criminally investigate or prosecute any alcohol or drug abuse patient.[facility] RehabilitationIn the event this information is protected by the Federal Confidentiality of Alcohol and Drug Abuse Patient Records regulations: The Federal rules restrict any use of the information to criminally investigate or prosecute any alcohol or drug abuse patient.[facility] RehabilitationIn the event this information is protected by the Federal Confidentiality of Alcohol and Drug Abuse Patient Records regulations: The Federal rules restrict any use of the information to criminally investigate or prosecute any alcohol or drug abuse patient.[facility] RehabilitationIn the event this information is protected by the Federal Confidentiality of Alcohol and Drug Abuse Patient Records regulations: The Federal rules restrict any use of the information to criminally investigate or prosecute any alcohol or drug abuse patient.[facility] Reason for Visit (unrecogniz ed section and content) Reason Comments Anticoagulation Lab INR result Reason Comments Anticoagulation Telephone Fu Lab INR res ult Reason Comments Medication Follow-up Reason Comments Refill Request Reason Comments Results Reason Comments Anticoagulation Telephone Fu INR Lab Res ult Reason Comments Orders INR Reason Comments Medicare Wellness Exam Reason Onset Date Comments Anticoagulation Telephone Fu 09/27/2021 Lab INR Result Reason Comments Anticoagulation Telephone Fu lab INR Reason Comments Opened In Error Reason Comments Anticoagulation Telephone Fu INR Reason Comments Hospital F/U Reason Comments Anticoagulation Telephone Fu INR Home Te st Result Reason Onset Date Comments Anticoagulation 01/17/2022 Critical Results 01/17/2022 INR Reason Onset Date Comments Anticoagulation Telephone Fu 01/20/2022 Lab INR Result Reason Onset Date Comments Anticoagulation Telephone Fu 01/27/2022 Lab INR Result Reason Onset Date Comments Refill Request 01/13/2022 Refill Request 01/28/2022 Reason Comments Anticoagulation Reason Comments Anticoagulation Telephone Fu Reason Comments Release Of Medical Records [facility] PCP Reason Onset Date Comments Anticoagulation Telephone Fu 04/04/2022 Lab INR Reason Comments Fall Reason Comments Fall Hip Pain Reason Comments Results X-ray hip Reason Comments Anticoagulation Telephone Fu Lab INR res ult Reason Onset Date Comments Anticoagulation Telephone Fu 10/17/2022 Lab INR Result Reason Comments urgent PT INR result Reason Onset Date Comments Anticoagulation Telephone Fu 01/19/2023 Reason Onset Date Comments Anticoagulation Telephone Fu 02/13/2023 Lab INR Reason Comments ED Follow-up Specialty Diagnoses / Procedures Referred By Jennifer gomez Referred To Contact MR IMAGING Diagnoses Cerebral infarction, unspecified mechanism (HCC) Procedures MRI BRAIN WO IVCON MRI BRAIN BRAIN STEM W/O CONTRAST MATERIAL Stas Mora MD [address] [facility] [place] [address] [place] [address] Referral ID Status Reason Start Date Expiration Date V isits Requested Visits Authorized [id number] Closed Auto-Generat ed Referral Patient Cleared - Admin/Chairm an/Director advise to proceed or did not respond 02/17/2023 04/18/2023 1 1 Reason Onset Date Comments Anticoagulation Telephone Fu 02/20/2023 Lab INR Reason Comments Anticoagulation Telephone Fu Home INR re sults Reason Comments Anticoagulation Telephone Fu Lab INR res ults Reason Comments Anticoagulation Telephone Fu Home INR re sults Reason Comments F/U 3 Month Reason Comments Results Orders Labs Reason Comments Results, Lab Reason Comments Results Labs, Critical Reason Comments Erroneous encounter-disregard Reason Onset Date Comments Anticoagulation 06/24/2023 Reason Comments Anticoagulation Telephone Fu Home INR Reason Comments Anticoagulation Telephone Fu Lab INR Reason Comments Anticoagulation Follow Up Reason Comments memory issues Reason Comments Anticoagulation Telephone Fu Lab INR Reason Comments Anticoagulation Telephone Fu Lab INR res ults Reason Comments Leg swelling Reason Comments Edema B/L lower legs Reason Onset Date Comments Refill Request 11/16/2023 Reason Comments Anticoagulation Telephone Fu Home INR Reason Comments F/U 6 Month Reason Onset Date Comments Anticoagulation Telephone Fu 11/26/2023 Lab INR Reason Onset Date Comments Anticoagulation Telephone Fu 12/10/2023 Lab INR Reason Onset Date Comments Anticoagulation Telephone Fu 12/24/2023 Lab INR Reason Comments Medication Request Reason Onset Date Comments Anticoagulation Telephone Fu 03/03/2024 Lab INR result Reason Comments Anticoagulation Telephone Fu Home INR re sult Reason Comments Patient Update Reason Comments memory issues Reason Comments Geriatric Evaluation Specialty Diagnoses / Procedures Referred By Jennifer gomez Referred To Contact Gerontology Diagnoses Dementia, unspecified dementia severity, unspecified dementia type, unspecified whether behavioral, psychotic, or mood disturbance or anxiety (HCC) Procedures CONSULT TO GERIATRICS OFFICE/OUTPATIENT [facility] 60 MINUTES Stas Mora MD [address] [id number] Referral ID Status Reason Start Date Expiration Date V isits Requested Visits Authorized [id number] Closed PCP Requested Referral 04/25/2024 04/25/2025 1 1 Reason Onset Date Comments Anticoagulation Telephone Fu 05/25/2024 Lab INR Result Reason Comments Appointment Reschedule for geria tric f/u Reason Comments Follow Up Geriatric follow up MRI results, with daughter Iraj and Maria Guadalupe, shuffling gait, did not remember ' name. Reason Comments Lump Elbow Reason Comments Follow Up Reason Comments Medication Problem Cost Care Teams (unrecognized sec tion and content) Trust Manager Relationship Specialty Start Date End Date Stas Mora MD [address] [facility] [place] [address] PCP - General 08/02/08, Pharmacist [phone] [place] [address], [place] [address] Pharmacist Pharmacy 10/19/19 Trust Manager Relationship Specialty Start Date End Date Stas Mora MD [address] [facility] [place] [address] PCP - General 08/02/08, Pharmacist [phone] [place] [address], [place] [address] Pharmacist Pharmacy 10/19/19 Trust Manager Relationship Specialty Start Date End Date Stas Mora MD [address] [place] [address] PCP - General 08/02/08, Pharmacist [phone] [place] [address], [place] [address] Pharmacist Pharmacy 10/19/19 Trust Manager Relationship Specialty Start Date End Date Stas Mora MD [address] [place] [address] PCP - General 08/02/08, Pharmacist [phone] [place] [address], [place] [address] Pharmacist Pharmacy 10/19/19 Trust Manager Relationship Specialty Start Date End Date Stas Mora MD [address] [facility] [place] [address] PCP - General 08/02/08, Pharmacist [address] [place] [address] Pharmacist Pharmacy 10/19/19 Trust Manager Relationship Specialty Start Date End Date Stas Mora MD [address] [place] [address] PCP - General 08/02/08, Pharmacist [address] [place] [address] Pharmacist Pharmacy 10/19/19 Trust Manager Relationship Specialty Start Date End Date Stas Mora MD [address] [facility] [place] [address] PCP - General 08/02/08, Pharmacist [address] [place] [address] Pharmacist Pharmacy 10/19/19 Trust Manager Relationship Specialty Start Date End Date Stas Mora MD [address] [place] [address] PCP - General 08/02/08, Pharmacist [address]129 [place] [address] Pharmacist Pharmacy 10/19/19 Trust Manager Relationship Specialty Start Date End Date Stas Mora MD [address] [place] [address] PCP - General 08/02/08, Pharmacist [address] [place] [address] Pharmacist Pharmacy 10/19/19 Trust Manager Relationship Specialty Start Date End Date Stas Mora MD [address] [place] [address] PCP - General 08/02/08, Pharmacist [phone] [place] [address], [place] [address] Pharmacist Pharmacy 10/19/19 Trust Manager Relationship Specialty Start Date End Date Stsa Mora MD [address] [place] [address] PCP - General 08/02/08, Pharmacist [address] [place] [address] Pharmacist Pharmacy 10/19/19 Trust Manager Relationship Specialty Start Date End Date Stas Mora MD [address] [place] [address] PCP - General 08/02/08, Pharmacist [address] [facility] [place] [address] Pharmacist Pharmacy 10/19/19 Trust Manager Relationship Specialty Start Date End Date Stas Mora MD [address] [facility] [place] [address] PCP - General 08/02/08, Pharmacist [address] [place] [address] Pharmacist Pharmacy 10/19/19 Trust Manager Relationship Specialty Start Date End Date Stas Mora MD [address] [facility] [place] [address] PCP - General 08/02/08, Pharmacist [phone] [place] [address], [place] [address] Pharmacist Pharmacy 10/19/19 Trust Manager Relationship Specialty Start Date End Date Stas Mora MD [address] [facility] [place] [address] PCP - General 08/02/08, Pharmacist [address] [place] [address] Pharmacist Pharmacy 10/19/19 Trust Manager Relationship Specialty Start Date End Date Stas Mora MD [address] [facility] [place] [address] PCP - General 08/02/08, Pharmacist [address] [place] [address] Pharmacist Pharmacy 10/19/19 Trust Manager Relationship Specialty Start Date End Date Stas Mora MD [address] [facility] [place] [address] PCP - General 08/02/08, Pharmacist [address] [place] [address] Pharmacist Pharmacy 10/19/19 Trust Manager Relationship Specialty Start Date End Date Stas Mora MD [address] [facility] [place] [address] PCP - General 08/02/08, Pharmacist [address] [place] [address] Pharmacist Pharmacy 10/19/19 Trust Manager Relationship Specialty Start Date End Date Stas Mora MD [address] [place] [address] PCP - General 08/02/08, Pharmacist [address] [place] [address] Pharmacist Pharmacy 10/19/19 Trust Manager Relationship Specialty Start Date End Date Stas Mora MD [address] [place] [address] PCP - General 08/02/08, Pharmacist [address] [place] [address] Pharmacist Pharmacy 10/19/19 Trust Manager Relationship Specialty Start Date End Date Stas Mora MD [address] [place] [address] PCP - General 08/02/08, Pharmacist [address] [place] [address] Pharmacist Pharmacy 10/19/19 Team Status: Active Member Role Status Dates Dr. Stas Mora MD Family Provider Active Dr. Stas Mora MD Primary Care Provider Active Team Status: Inactive Member Role Status Dates Dr. Stas Mora MD Primary Care Provider Active Dr. Brian Cunningham , DO Emergency Provider Active Trust Manager Relationship Specialty Start Date End Date Stas Mora MD [address] [place] [address] PCP - General 08/02/08, Pharmacist [address] [place] [address] Pharmacist Pharmacy 10/19/19 Trust Manager Relationship Specialty Start Date End Date Stas Mora MD [address] [facility] [place] [address] PCP - General 08/02/08, Pharmacist [address] [place] [address] Pharmacist Pharmacy 10/19/19 Trust Manager Relationship Specialty Start Date End Date Stas Mora MD [address] [facility] [place] [address] PCP - General 08/02/08, Pharmacist [address] [place] [address] Pharmacist Pharmacy 10/19/19 Trust Manager Relationship Specialty Start Date End Date Stas Mora MD [address] [place] [address] PCP - General 08/02/08, Pharmacist [address] [place] [address] Pharmacist Pharmacy 10/19/19 Trust Manager Relationship Specialty Start Date End Date Stas Mora MD [address] [facility] [place] [address] PCP - General 08/02/08, Pharmacist [address] [place] [address] Pharmacist Pharmacy 10/19/19 Trust Manager Relationship Specialty Start Date End Date Stas Mora MD [address] [facility] [place] [address] PCP - General 08/02/08, Pharmacist [address] [place] [address] Pharmacist Pharmacy 10/19/19 Trust Manager Relationship Specialty Start Date End Date Stas Mora MD [address] [facility] [place] [address] PCP - General 08/02/08, Pharmacist [address] [place] [address] Pharmacist Pharmacy 10/19/19 Trust Manager Relationship Specialty Start Date End Date Stas Mora MD [address] [place] [address] PCP - General 08/02/08, Pharmacist [address] [place] [address] Pharmacist Pharmacy 10/19/19 Trust Manager Relationship Specialty Start Date End Date Stas Mora MD [address] [place] [address] PCP - General 08/02/08, Pharmacist [address] [place] [address] Pharmacist Pharmacy 10/19/19 Trust Manager Relationship Specialty Start Date End Date Stas Mora MD [address] [place] [address] PCP - General 08/02/08, Pharmacist [address] [place] [address] Pharmacist Pharmacy 10/19/19 Trust Manager Relationship Specialty Start Date End Date Stas Mora MD [address] [place] [address] PCP - General 08/02/08, Pharmacist [address] [place] [address] Pharmacist Pharmacy 10/19/19 Trust Manager Relationship Specialty Start Date End Date Stas Mora MD [address] [place] [address] PCP - General 08/02/08, Pharmacist 56683 [place] [address] Pharmacist Pharmacy 10/19/19 Trust Manager Relationship Specialty Start Date End Date Stas Mora MD [address] [place] [address] PCP - General 08/02/08, Pharmacist 399[address] [place] [address] Pharmacist Pharmacy 10/19/19 Trust Manager Relationship Specialty Start Date End Date Stas Mora MD [address] [place] [address] PCP - General 08/02/08, Pharmacist [address] [place] [address] Pharmacist Pharmacy 10/19/19 Trust Manager Relationship Specialty Start Date End Date Stas Mora MD [address] [place] [address] PCP - General 08/02/08, Pharmacist [address]478 [place] [address] Pharmacist Pharmacy 10/19/19 Trust Manager Relationship Specialty Start Date End Date Stas Mora MD [address] [place] [address] PCP - General 08/02/08, Pharmacist [address]195 [place] [address] Pharmacist Pharmacy 10/19/19 Trust Manager Relationship Specialty Start Date End Date Stas Mora MD [address] [place] [address] PCP - General 08/02/08, Pharmacist [address]60 [place] [address] Pharmacist Pharmacy 10/19/19 Trust Manager Relationship Specialty Start Date End Date Stas Mora MD [address] [facility] [place] [address] PCP - General 08/02/08, Pharmacist [address]255 [place] [address] Pharmacist Pharmacy 10/19/19 Trust Manager Relationship Specialty Start Date End Date Stas Mora MD [address] [place] [address] PCP - General 08/02/08, Pharmacist [address] [place] [address] Pharmacist Pharmacy 10/19/19 Trust Manager Relationship Specialty Start Date End Date Stas Mora MD [address] [place] [address] PCP - General 08/02/08, Pharmacist [address]73 [place] [address] Pharmacist Pharmacy 10/19/19 Trust Manager Relationship Specialty Start Date End Date Stas Mora MD [address] [place] [address] PCP - General 08/02/08, Pharmacist [address] [place] [address] Pharmacist Pharmacy 10/19/19 Trust Manager Relationship Specialty Start Date End Date Stas Mora MD [address] [facility] [place] [address] PCP - General 08/02/08, Pharmacist [address] [place] [address] Pharmacist Pharmacy 10/19/19 Jenna Fitzpatrick APRN.SHIRT FOLDING MACHINE OPERATOR [address] [facility] [place] [address] Associate Professor Of Biology Family Medicine 02/28/24 Trust Manager Relationship Specialty Start Date End Date Stas Mora MD [address] [facility] [place] [address] PCP - General 08/02/08, Pharmacist [address]443 [place] [address] Pharmacist Pharmacy 10/19/19 Jenna Fitzpatrick APRN.SHIRT FOLDING MACHINE OPERATOR [address] [place] [address] Associate Professor Of Biology Family Medicine 02/28/24 Elvis Kearney APRN.SHIRT FOLDING MACHINE OPERATOR [address] [place] [address] Associate Professor Of Biology Family Medicine 03/08/24 Trust Manager Relationship Specialty Start Date End Date Stas Mora MD [address] [facility] [place] [address] PCP - General 08/02/08, Pharmacist 81906 [place] [address] Pharmacist Pharmacy 10/19/19 Jenna Fitzpatrick SENIOR TECHNICAL RECRUITER.SHIRT FOLDING MACHINE OPERATOR [address] [facility] [place] [address] Associate Professor Of Biology Family Medicine 02/28/24 Elvis Kearney APRN.SHIRT FOLDING MACHINE OPERATOR [address] [facility] [place] [address] Associate Professor Of Biology Family Medicine 03/08/24 Trust Manager Relationship Specialty Start Date End Date Stas Mora MD [address] [place] [address] PCP - General 08/02/08, Pharmacist [address] [place] [address] Pharmacist Pharmacy 10/19/19 Jenna Fitzpatrick APRN.SHIRT FOLDING MACHINE OPERATOR [address] [place] [address] Associate Professor Of Biology Family Medicine 02/28/24 Elvis Kearney SENIOR TECHNICAL RECRUITER.SHIRT FOLDING MACHINE OPERATOR [address] [place] [address] Associate Professor Of Biology [facility] Medicine 03/08/24 Trust Manager Relationship Specialty Start Date End Date Stas Mora MD [address] [place] [address] PCP - General 08/02/08, Pharmacist [address]704 [place] [address] Pharmacist Pharmacy 10/19/19 Jenna Fitzpatrick SENIOR TECHNICAL RECRUITER.SHIRT FOLDING MACHINE OPERATOR [address] [place] [address] Associate Professor Of Biology Family Medicine 02/28/24 Elvis Kearney SENIOR TECHNICAL RECRUITER.SHIRT FOLDING MACHINE OPERATOR [address] [place] [address] Associate Professor Of Biology Family Medicine 03/08/24 Trust Manager Relationship Specialty Start Date End Date Stas Mora MD [address] [place] [address] PCP - General 08/02/08, Pharmacist [address] [place] [address] Pharmacist Pharmacy 10/19/19 Jenna Fitzpatrick APRN.SHIRT FOLDING MACHINE OPERATOR [address] [facility] [place] [address] Associate Professor Of Biology Family Medicine 02/28/24 Elvis Kearney APRN.SHIRT FOLDING MACHINE OPERATOR [address] [facility] [place] [address] Associate Professor Of Biology Family Medicine 03/08/24 Trust Manager Relationship Specialty Start Date End Date Stas Mora MD [address] [place] [address] PCP - General 08/02/08, Pharmacist [address]64 [place] [address] Pharmacist Pharmacy 10/19/19 Jenna Fitzpatrick APRN.SHIRT FOLDING MACHINE OPERATOR [address] [place] [address] Associate Professor Of Biology Family [facility] 02/28/24 Elvis Kearney APRN.SHIRT FOLDING MACHINE OPERATOR [address] [place] [address] Associate Professor Of Biology [facility] 03/08/24 Trust Manager Relationship Specialty Start Date End Date Stas Mora MD [address] [place] [address] PCP - General 08/02/08, Pharmacist [address] [place] [address] Pharmacist Pharmacy 10/19/19 Jenna Fitzpatrick APRN.SHIRT FOLDING MACHINE OPERATOR [address] [place] [address] Associate Professor Of Biology Family Medicine 02/28/24 Elvis Kearney APRN.SHIRT FOLDING MACHINE OPERATOR [address] [place] [address] Associate Professor Of Biology Family Medicine 03/08/24 Trust Manager Relationship Specialty Start Date End Date Stas Mora MD [address] [place] [address] PCP - General 08/02/08, Pharmacist [address]20 [place] [address] Pharmacist Pharmacy 10/19/19 Jenna Fitzpatrick SENIOR TECHNICAL RECRUITER.SHIRT FOLDING MACHINE OPERATOR [address] [place] [address] Associate Professor Of Biology Family Medicine 02/28/24 Elvis Kearney APRN.SHIRT FOLDING MACHINE OPERATOR [address] [place] [address] Associate Professor Of Biology [facility] 03/08/24 Trust Manager Relationship Specialty Start Date End Date Stas Mora MD [address] [place] [address] PCP - General 08/02/08, Pharmacist [address] [place] [address] Pharmacist Pharmacy 10/19/19 Jenna Fitzpatrick SENIOR TECHNICAL RECRUITER.SHIRT FOLDING MACHINE OPERATOR [address] [place] [address] Associate Professor Of Biology Family Medicine 02/28/24 Elvis Kearney APRN.SHIRT FOLDING MACHINE OPERATOR [address] [place] [address] Associate Professor Of Biology Family Medicine 03/08/24 Trust Manager Relationship Specialty Start Date End Date Stas Mora MD [address] [place] [address] PCP - General 08/02/08, Pharmacist [address]33 [place] [address] Pharmacist Pharmacy 10/19/19 Jenna Fitzpatrick APRN.SHIRT FOLDING MACHINE OPERATOR [address] [place] [address] Associate Professor Of Biology Family Medicine 02/28/24 Elvis Kearney APRN.SHIRT FOLDING MACHINE OPERATOR [address] [place] [address] Associate Professor Of Biology Family Medicine 03/08/24 Trust Manager Relationship Specialty Start Date End Date Stas Mora MD [address] [place] [address] PCP - General 08/02/08, Pharmacist [address] [place] [address] Pharmacist Pharmacy 10/19/19 Jenna Fitzpatrick APRN.SHIRT FOLDING MACHINE OPERATOR [address] [place] [address] Associate Professor Of Biology Family Medicine 02/28/24 Elvis Kearney SENIOR TECHNICAL RECRUITER.SHIRT FOLDING MACHINE OPERATOR [address] [place] [address] Associate Professor Of Biology Family Medicine 03/08/24 Trust Manager Relationship Specialty Start Date End Date Stas Mora MD [address] [place] [address] PCP - General 08/02/08, Pharmacist [address] [place] [address] Pharmacist Pharmacy 10/19/19 Jenna Fitzpatrick APRN.SHIRT FOLDING MACHINE OPERATOR [address] [place] [address] Associate Professor Of Biology Family Medicine 02/28/24 Elvis Kearney APRN.SHIRT FOLDING MACHINE OPERATOR [address] [place] [address] Associate Professor Of Biology Family Medicine 03/08/24 Trust Manager Relationship Specialty Start Date End Date Stas Mora MD [address] [place] [address] PCP - General 08/02/08, Pharmacist [phone] [place] [address] Pharmacist Pharmacy 10/19/19 Jenna Fitzpatrick APRN.SHIRT FOLDING MACHINE OPERATOR [address] [place] [address] Associate Professor Of Biology Family [facility] 02/28/24 Elvis Kearney APRN.SHIRT FOLDING MACHINE OPERATOR [address] [place] [address] [facility] 03/08/24 Trust Manager Relationship Specialty Start Date End Date Stas Mora MD [address] [place] [address] PCP - General 08/02/08, Pharmacist [address]42 [place] [address] Pharmacist Pharmacy 10/19/19 Jenna Fitzpatrick SENIOR TECHNICAL RECRUITER.SHIRT FOLDING MACHINE OPERATOR [address] [place] [address] Associate Professor Of Biology Family Medicine 02/28/24 Elvis Kearney APRN.SHIRT FOLDING MACHINE OPERATOR [address] [place] [address] Associate Professor Of Biology Family Medicine 03/08/24 Trust Manager Relationship Specialty Start Date End Date Stas Mora MD [address] [place] [address] PCP - General 08/02/08, Pharmacist 14933 [place] [address] Pharmacist Pharmacy 10/19/19 Jenna Fitzpatrick APRN.SHIRT FOLDING MACHINE OPERATOR [address] [place] [address] Associate Professor Of Biology Family Medicine 02/28/24 Elvis Kearney APRN.SHIRT FOLDING MACHINE OPERATOR [address] [place] [address] Associate Professor Of Biology Family Medicine 03/08/24 Trust Manager Relationship Specialty Start Date End Date Stas Mora MD [address] [place] [address] PCP - General 08/02/08, Pharmacist 987[address] [place] [address] Pharmacist Pharmacy 10/19/19 Jenna Fitzpatrick APRN.SHIRT FOLDING MACHINE OPERATOR [address] [place] [address] Associate Professor Of Biology Family Medicine 02/28/24 Elvis Kearney APRN.SHIRT FOLDING MACHINE OPERATOR [address] [place] [address] Associate Professor Of Biology Family Medicine 03/08/24 Trust Manager Relationship Specialty Start Date End Date Stas Mora MD [address] [place] [address] PCP - General 08/02/08, Pharmacist [address] [place] [address] Pharmacist Pharmacy 10/19/19 Elvis Kearney APRN.SHIRT FOLDING MACHINE OPERATOR [address] [place], [place] 289371 [facility] 03/08/24 Trust Manager Relationship Specialty Start Date End Date Stas Mora MD [address] [place], [place] [address]67[address] PCP - General 08/02/08, Pharmacist 73376 [place], [place] 6928[address] Pharmacist Pharmacy 10/19/19 Elvis Kearney, JETHRO.SHIRT FOLDING MACHINE OPERATOR [address] [place], [place] 8657[address] [facility] 03/08/24 Team Status: Active Member Role Status Dates Dr. Stas Mora MD Primary Care Provider Active Team Status: Active Member Role Status Dates Dr. Stas Mora MD Primary Care Provider Active Start: September 01, 2024 Dr. Inderjit Gillespie MD Emergency Provider Active S tart: September 01, 2024 Dr. Kathy Wells MD Admit Provider Active St art: September 01, 2024 Dr. Kathy Wells MD Attending Provider Active Start: September 01, 2024 Goals (unrecognized section and content) Goals may be documented in a n alternate section No data available for this sectionGoals may be documented in an alternate sectionGoals may be documented in an alternate section FOR RECORDS PERTAINING TO PATIENTS WHO ARE OR HAVE BEEN ENROLLED IN A CHEMICAL DEPENDENCY/SUBSTANCEABUSE PROGRAM, SOME INFORMATION MAY BE OMITTED. This clinical summary was aggregated from multiple sources. Caution should be exercised in using it in the provision of clinical care. This summary normalizes information from multiple sources, and as a consequence, information in this document may materially change the coding, format and clinical context of patient data. In addition, data may be omitted in some cases. CLINICAL DECISIONS SHOULD BE BASED ON THE PRIMARY CLINICAL RECORDS. [facility] [employer] [facility]. provides no warranty or guarantee of the accuracy or completeness of information in this document.
[2024-09-01] MEDS: Vancomycin HCl 1,750 MG in 0.9% Normal Saline (500mL Bag) 500 ML 250 MG IV (20:49)
--- NOTE | 2024-09-01 21:14 | PCM.RX.CS ---
Consult Antibiotic Management Pharmacy has been consulted to manage selected antibiotic: Vancomycin Type of Intervention Type of Consult: New start Labs Labs: Sodium 139 mmol/L (133-145) 09/01/24 08:01 Potassium 3.7 mmol/L (3.3-5.1) 09/01/24 08:01 Chloride 105 mmol/L (98-108) 09/01/24 08:01 Carbon Dioxide 24.3 mmol/L (21.0-32.0) 09/01/24 08:01 Anion Gap 10 (5-15) 09/01/24 08:01 BUN 17 mg/dL (4-19) 09/01/24 08:01 Creatinine 0.77 mg/dL (0.70-1.20) 09/01/24 08:01 Est GFR (MDRD) Non-Af 86 (>60) 09/01/24 08:01 BUN/Creatinine Ratio 21.6 RATIO (10-20) H 09/01/24 08:01 Glucose 112 mg/dL (70-99) H 09/01/24 08:01 Dosing Weight Weight used for dosin.4 kg Estimated Creatinine Clearance Estimated Creatinine Clearance: 69 Goal Trough Goal Trough: 15-20 mcg/mL Pharmacy Plan for Drug Dosing Pharmacy Plan for Drug Dosing: Pharmacy Service will continue to monitor and adjust dosing as required. 1750MG GIVEN IN ER @2048. START 750MG Q12H AND DRAW TROUGH PRIOR TO 4TH DOSE Follow-Up Labs Follow-Up Labs: Trough: Vancomycin Date/Time Labs Ordered Labs to be done on [date and time ordered]: 09/03 @ 5109
[2024-09-01 21:16] LABS: Erythrocyte Sedimentation Rate 2 mm/hr (0-20)
[2024-09-01 21:25] LABS: Procalcitonin 0.07 ng/mL (<=0.10)
[2024-09-01] MEDS: Memantine Hydrochloride 10 MG Tablet PO (22:40)
[2024-09-01] MEDS: Atorvastatin Calcium 40 MG Tablet PO (22:40)
[2024-09-01] MEDS: Piperacil/Tazobactam 3.375 GM in 0.9% Normal Saline (50mL MB+) 50 ML IV (23:56)
[2024-09-02] VITALS (11 sets, daily range): BP systolic 151–180; BP diastolic 85–101; PULSE 80–89; RESP 24–28; TEMP 36.4–37.1; O2SAT 89–97
[2024-09-02] MEDS: 0.9% Normal Saline (1000mL) 1,000 ML 125 ML IV (02:35)
[2024-09-02 06:46] LABS: Absolute Lymphocyte Count 0.52 X10^3/uL (0.83-4.51); Absolute Neutrophil Count 12.1 X10^3/uL (2.0-7.7); Basophil# 0.08 X10^3/uL; Basophil% 0.6 % (0-1); Eosinophils% 2.2 % (0-5); Hematocrit 39.9 % (40-54); Hemoglobin 11.9 g/dL (13.0-16.5); Lymphocyte # 0.52 X10^3/ul (0.83-4.51); Lymphocyte % 3.8 % (19-41); Mean Corp Hgb Conc 29.8 g/dL (32-36); Mean Corpuscular Hgb 24.5 pg (27.0-32.0); Mean Corpuscular Volume 82.3 fL (80-94); Mean Platelet Vol. 10.6 fl (6.2-12.0); Monocyte# 0.66 X10^3/uL; Monocyte% 4.8 % (0-10); NRBC Flagged by Analyzer 0 % (0-5); Neutrophil # 12.12 X10^3/uL (2.7-7.7); Neutrophil % 87.9 % (47-70); POSITIVE DIFFERENTIAL YES; Platelet Count 227 K/mm3 (150-450); RBC Distribution Width CV 17.8 % (11.6-14.6); RBC Distribution Width SD 52.3 fl (35.1-43.9); Red Blood Count 4.85 M/mm3 (4.6-6.2); White Blood Count 13.8 K/mm3 (4.4-11.0)
[2024-09-02] MEDS: Piperacil/Tazobactam 3.375 GM in 0.9% Normal Saline (50mL MB+) 50 ML IV ×3 (07:02→22:55)
[2024-09-02 07:18] LABS: Anion Gap 15 (5-15); BUN 14 mg/dL (4-19); BUN/Creat Ratio 18.9 RATIO (10-20); Calcium,Total 8.5 mg/dL (7.6-11.0); Carbon Dioxide 14.2 mmol/L (21.0-32.0); Chloride 105 mmol/L (98-108); Creatinine, Serum 0.75 mg/dL (0.70-1.20); EST Glomerular Filtration Rate 86 (>60); Glucose 105 mg/dL (70-99); Potassium 4.3 mmol/L (3.3-5.1); Sodium Level 135 mmol/L (133-145)
[2024-09-02 08:47] LABS: International Normalized Ratio 1.9; Prothrombin Time (Protime)PT. 22.1 SECONDS (11.7-14.9)
[2024-09-02] MEDS: Vancomycin HCl 750 MG in 0.9% Normal Saline (250mL Bag) 250 ML 250 MG IV ×2 (09:14→20:34)
--- NOTE | 2024-09-02 09:45 | CASEMGMT ---
Addendum entered by Fanny Bernabe 09/02/24 11:55: 1128- EMILY YATES into pt room, pt sig other present. Pt sitting up in chair in no distress with eyes closed. Pt sig other states that she is having a hard time managing pt at home. She states it is mentally difficult for her as pt hallucinations can make her angry but she realizes pt is not present when he has these and they are very real to him. She states pt has seen men in suits in the bedroom when it was only the two of them. Tsering states she was told that pt will get further therapy prior to coming home and she feels this is the best option at this time. She does want pt to return home after therapy. Updated SW who will call pt dtr to discuss. Original Note: EMILY YATES into pt room, pt sitting on edge of bed as it appears he may be starting to get up. Pt nurse arrived soon after. Pt could not recall where he was, what year it is or whom he lives with. Reoriented pt and made pt aware that this EMILY YATES would call his dtr to ask some questions regarding his living situation. Pt agreeable to this. Noted pt dtr is POA. EMILY YATES Assessment: TC to pt dtr, Blanca Julian RN CM introduced self and role at [facility], pt dtr voices understanding and consents to assessment. Care providers, pharmacy, and demographics verified/updated. Admitting Dx: debility, mechanical fall Strata Score: 3 PCP:[facility] Specialists:Sue, geriatric specialist; WHG, cardio Preferred Pharmacy: [facility] Insurance: [facility] Prescription Benefit: yes LNOK: deneen Mastr; Maria Guadalupe Salguero, sig other Living Arrangements: Pt lives with sig other in a mobile home with 5-6 steps to enter with a rail. Pt dtr reports pt has been living with sig other for approx 14 years. She states pt is indep in bathing and dressing self but that sig other does the meals, laundry and gets groceries. She states that she feels it may be getting too difficult for the sig other to care for pt with his dementia but sig other is not reporting this. She asks EMILY YATES to speak with her to see if she feels pt can return home or if pt will need s/t therapy prior to coming home. Pt dtr states she would not be able to care for him on her own but she knows the sig other is trying to keep pt at home as long as she can. TC to sig other, left vm requesting returned call. Transportation: Pt significant other transports pt to medical appts. DME:cane, walker, grab bar in shower, shower chair HHC/SNF: Denies hx of CM to follow. Advised pt to ask CM if any further questions/concerns/needs arise, voices understanding. Pt Goal: Unable to state Plan: TBD pending decision of pt dtr and sig other Taran DIAZ CM
[2024-09-02] MEDS: Lisinopril 10 MG Tablet PO (09:54)
[2024-09-02] MEDS: Memantine Hydrochloride 10 MG Tablet PO ×2 (09:55→20:35)
--- NOTE | 2024-09-02 10:37 | NURSING ---
Updated Mr. Flores's daughter Blanca on how pt is doing and plan of care going forward.
--- NOTE | 2024-09-02 11:07 | CASEMGMT ---
Spoke with pts daughter/HC POA, Blanca Julian, to complete CHASE form. CHASE form and its content were verbally explained. Blanca voiced understanding.? Copy of signed CHASE form placed in pts room and original placed in patient's chart.? Neeru Peguero, Discharge Planning Asst
--- NOTE | 2024-09-02 11:41 | CASEMGMT ---
Discharge Planning A list of SNF providers including quality and resource use data and consistent with the patient's preferred geographic region, medical needs, and insurance network was created in [facility] Guide.? This list was provided to the SW. Neeru Peguero Discharge Planning Asst.
--- NOTE | 2024-09-02 12:13 | CASEMGMT ---
Social Work SW received referral from RNCM. Pt's dgt and significant other are in agreement that pt needs SNF placement. SW spoke with pt dgt Blanca about placement. Blanca is uncertain if placement will be for short term rehab only or will turn into snf placement. This is dependent on how pt would do with therapy. A list of SNF providers including quality and resource use data and consistent with the patient?s preferred geographic region, medical needs, and insurance network were provided via the [facility] Guide Link. Pt dgt to review emailed list and let SW know SNF choice. DEANDRE Bardales
--- NOTE | 2024-09-02 14:04 | PN_ITS ---
Subjective Subjective Patient seen and examined. He had no complaints this morning. He was alert and sitting in his chair when I saw him with his nurse by his bedside. He did display a date of the day he was seen.. However he said [place] Was the current president and did not know the year. He is on 1 L of oxygen. He developed a fever overnight and so was started on broad-spectrum antibiotics. WBC is 13.8 today. Objective Data Objective Data Vital Signs: Vital Signs Temp Pulse Resp BP Pulse Ox O2 Del Method O2 Flow Rate 98.5 F 80 24 H 159/89 H 96 Nasal Cannula 1 09/02/24 08:00 09/02/24 08:00 09/02/24 08:00 09/02/24 08:00 09/02/24 09:30 09/02/24 09:30 09/02/24 09:30 Oxygen Flow Rate (L/min) 1 Oxygen Delivery Method Nasal Cannula Weight: 159 lb 9.835 oz Body Mass Index (BMI) 21.6 Intake & Output: Intake and Output for Last 24 Hours 08/31/24 09/01/24 09/02/24 23:59 23:59 23:59 Intake Total 1537.08 / 1537.08 1722.92 / 1722.92 Output Total 250 / 450 850 / 850 Balance 1287.08 / 1087.08 872.92 / 872.92 Lab / Micro Data 09/02/24 05:10 09/02/24 05:10 Labs: Laboratory Results - last 24 hr 09/01/24 08:01: ESR 2, C-React Prot Ext Range 26.80 H, Procalcitonin 0.07 09/02/24 05:10: WBC 13.8 H, RBC 4.85, Hgb 11.9 L, Hct 39.9 L, MCV 82.3 D, MCH 24.5 L, MCHC 29.8 L D, RDW Std Deviation 52.3 H, RDW Coeff of Boom 17.8 H, Plt Count 227, MPV 10.6, Immature Gran % (Auto) 0.700, Neut % (Auto) 87.9 H, Lymph % (Auto) 3.8 L, [place] % (Auto) 4.8, Eos % (Auto) 2.2, Baso % (Auto) 0.6, Absolute Neuts (auto) 12.1 H, Absolute Lymphs (auto) 0.52 L, Nucleated RBC % 0, Sodium 135, Potassium 4.3, Chloride 105, Carbon Dioxide 14.2 L, Anion Gap 15, BUN 14, Creatinine 0.75, Estim Creat Clear Calc 64.10, Est GFR (MDRD) Non-Af 86, BUN/Creatinine Ratio 18.9, Glucose 105 H, Calcium 8.5 09/02/24 08:25: PT 22.1 H, INR 1.9 Micro: Microbiology 09/01/24 20:24 Mucosa - Nasopharyngeal Respiratory Panel (PCR) - Final 09/01/24 20:56 Nasal Secretion SARS-CoV-2 Antigen (Rapid) - Final Physical Exam Const alert Constitutional Narrative: frail, weak, confused, alert to self and place, but not to time. General Appearance: cooperative HEENT normocephalic and head/scalp atraumatic Eyes conjunctivae normal Neck supple and no JVD Resp normal respiratory effort, no use of accessory muscles and clear to auscultation bilaterally Cardio regular rate, regular rhythm, S1 normal heart sound, S2 normal heart sound and no murmurs GI normal to inspection, nondistended, normoactive bowel sounds and soft to palpation Extremity normal to inspection, full ROM, normal capillary refill and no clubbing, cyanosis or edema General Extremity: no tenderness to palpation of joints or extremities Skin General Skin Exam: no breakdown Neuro CN's II-XII intact bilaterally and no focal motor deficits Neuro Narrative: alert, confused, moves all extremities, weak and frail. Motor Exam: general weakness Psych Psych Narrative: flat affect Assessment & Plan Assessment/Plan (1) Adult failure to thrive: (2) Fall: (3) Unable to ambulate: (4) Contusion of hip: PLAN: Plan #Debility and weakness due to mechanical falls * Patient admitted with a complaint of mechanical falls. He fell on the day of admission and also fell the day before. His legs just gave way. The EMS had to be called both times to get him off. * states the last time he fell was about 2 years ago. He is on Coumadin for A-fib. * Imaging done showed no evidence of any fractures. CT of the brain showed no evidence of intracranial bleed. * Admit to MedSur. Hydrate gently with IV fluids. * PT OT on board. Fall precautions. * # Fever * Patient developed a fever overnight. Urinalysis showed no evidence of UTI. Blood cultures ordered and patient started on IV vancomycin and Zosyn. * #History of A-fib: * On Coumadin. INR is 1.9. Not on any rate or rhythm limiting medication. * I spoke to the patient's daughter and extensively about the risk of brain bleed with his history of falls as well as the risk of stroke if he is taking of the Coumadin. * I explained to them that would have to be a shared decision making process and the remaining power to make the decision they felt was in the best interest of the patient. * The daughter is the healthcare power of bankruptcy attorney. * In light of patient's confusion in the setting of dementia, she would ultimately have to make decisions feels in the best interest of her father. * She was counseled that she would need to think about it and let the medical team know what she had decided. * Will resume Coumadin today was waiting for daughter to make a decision. * #History of dementia: On rivastigmine #Dyslipidemia: On statin #Benign essential hypertension: On lisinopril. DVT prophylaxis: * Resume Coumadin today. INR 1.9. Daughter still thinking about that she wants him to continue otherwise. * Code status: DNRCCA no intubation * Charges/Coding Visit Charges Inpatient E&M: 02303 Subs Hosp L2
--- NOTE | 2024-09-02 14:48 | CASEMGMT ---
Social Work Return call from pt's daughter Blanca. Blanca has reviewed SNF list and preferred providers are [facility] and 2. [facility]. Blanca is uncertain if pt will need manager 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 placement, but would like pt to go to a facility that would be able to provide this if pt cannot return home. DC speech language pathology assistant updated and to send referral to [facility]. Plan[facility], pending acceptance and precDEANDRE Rahman
--- NOTE | 2024-09-02 14:56 | CASEMGMT ---
Addendum entered by Neeru Peguero 09/02/24 15:26: [facility] has accepted and will submit for precert. Neeru Peguero DC Planning Asst. Original Note: Discharge Planning Referral sent to [facility]. Neeru Peguero DC Planning Asst.
[2024-09-02] MEDS: 0.9% Normal Saline (250mL Bag) 250 ML 15 ML IV (15:59)
--- NOTE | 2024-09-02 16:03 | CASEMGMT ---
Social Work [facility] pt and precert has been started. PASRR completed in HENS. Phone call placed to pt dgt updating on SNF acceptance and pending precert. Green sheet placed on chart to facilitate weekend discharge. [place] to call the unit if precert is obtained. Plan: [facility], pending precert DEANDRE Bardales
--- NOTE | 2024-09-02 17:47 | NURSING ---
Bladder scanned for 2cc after pt only voided 100cc in urinal with some hesitency and previously tried to urinate in the bathroom and was unable. This RN gave pt some water to drink and he drank around 125cc of water. Family encouraged to help pt keep drinking water. Pt refused breakfast this morning and also for dinner. Only took bites for lunch.
[2024-09-02] MEDS: Atorvastatin Calcium 40 MG Tablet PO (20:35)
[2024-09-03] VITALS (8 sets, daily range): BP systolic 120–154; BP diastolic 70–104; PULSE 81–97; RESP 15–24; TEMP 36.7–37.3; O2SAT 94–99
[2024-09-03] MEDS: Piperacil/Tazobactam 3.375 GM in 0.9% Normal Saline (50mL MB+) 50 ML IV ×3 (05:52→23:21)
[2024-09-03] MEDS: Memantine Hydrochloride 10 MG Tablet PO ×2 (08:19→20:42)
[2024-09-03] MEDS: Lisinopril 10 MG Tablet PO (08:19)
[2024-09-03] MEDS: Vancomycin Trough/Random Due 1 LAB MC (08:20)
[2024-09-03 08:21] LABS: Absolute Lymphocyte Count 0.82 X10^3/uL (0.83-4.51); Absolute Neutrophil Count 10.2 X10^3/uL (2.0-7.7); Basophil# 0.08 X10^3/uL; Basophil% 0.7 % (0-1); Eosinophil# 0.34 X10^3/uL; Eosinophils% 2.8 % (0-5); Hematocrit 35.6 % (40-54); Hemoglobin 11.3 g/dL (13.0-16.5); Lymphocyte # 0.82 X10^3/ul (0.83-4.51); Lymphocyte % 6.7 % (19-41); Mean Corp Hgb Conc 31.7 g/dL (32-36); Mean Corpuscular Hgb 24.7 pg (27.0-32.0); Mean Corpuscular Volume 77.7 fL (80-94); Mean Platelet Vol. 9.9 fl (6.2-12.0); Monocyte# 0.74 X10^3/uL; NRBC Flagged by Analyzer 0 % (0-5); Neutrophil # 10.22 X10^3/uL (2.7-7.7); Neutrophil % 83.4 % (47-70); Platelet Count 252 K/mm3 (150-450); RBC Distribution Width CV 17.5 % (11.6-14.6); RBC Distribution Width SD 48.2 fl (35.1-43.9); Red Blood Count 4.58 M/mm3 (4.6-6.2); White Blood Count 12.3 K/mm3 (4.4-11.0)
[2024-09-03 08:31] LABS: International Normalized Ratio 1.8; Prothrombin Time (Protime)PT. 20.9 SECONDS (11.7-14.9)
[2024-09-03 09:21] LABS: Anion Gap 13 (5-15); BUN 10 mg/dL (4-19); BUN/Creat Ratio 13.3 RATIO (10-20); Calcium,Total 8.5 mg/dL (7.6-11.0); Carbon Dioxide 19.1 mmol/L (21.0-32.0); Chloride 104 mmol/L (98-108); Creatinine, Serum 0.74 mg/dL (0.70-1.20); EST Glomerular Filtration Rate 87 (>60); Glucose 111 mg/dL (70-99); Potassium 3.5 mmol/L (3.3-5.1); Sodium Level 137 mmol/L (133-145)
[2024-09-03 09:35] LABS: Vancomycin, Trough Level 8.2 ug/mL (5.0-15.0)
[2024-09-03] MEDS: Vancomycin HCl 1,250 MG in 0.9% Normal Saline (250mL Bag) 250 ML 167 MG IV ×2 (10:59→20:53)
--- NOTE | 2024-09-03 11:35 | PCM.PROGNOTE ---
Subjective Subjective Patient seen and examined. He was alert and communicative. He had no active complaints. He has remained hemodynamically stable. Review of systems otherwise negative. Objective Data Objective Data Vital Signs: Vital Signs Temp Pulse Resp BP Pulse Ox O2 Del Method O2 Flow Rate 98.2 F 96 22 H 154/104 H 94 Room Air 2 09/03/24 08:13 09/03/24 08:13 09/03/24 08:13 09/03/24 08:13 09/03/24 08:09/03/24 08:09/02/24 15:02 Oxygen Flow Rate (L/min) 2 Oxygen Delivery Method Room Air Weight: 159 lb 9.835 oz Body Mass Index (BMI) 21.6 Intake & Output: Intake and Output for Last 24 Hours 09/01/24 09/02/24 09/03/24 23:59 23:59 23:59 Intake Total 1537.08 / 1537.08 2277.92 / 2477.92 550 / 550 Output Total 250 / 450 950 / 950 100 / 100 Balance 1287.08 / 1087.08 1327.92 / 1527.92 450 / 450 Lab / Micro Data 09/03/24 08:11 09/03/24 08:11 Labs: Laboratory Results - last 24 hr 09/03/24 08:11: WBC 12.3 H, RBC 4.58 L, Hgb 11.3 L, Hct 35.6 L, MCV 77.7 L D, MCH 24.7 L, MCHC 31.7 L D, RDW Std Deviation 48.2 H, RDW Coeff of Boom 17.5 H, Plt Count 252, MPV 9.9, Immature Gran % (Auto) 0.400, Neut % (Auto) 83.4 H, Lymph % (Auto) 6.7 L, [place] % (Auto) 6.0, Eos % (Auto) 2.8, Baso % (Auto) 0.7, Absolute Neuts (auto) 10.2 H, Absolute Lymphs (auto) 0.82 L, Nucleated RBC % 0, PT 20.9 H, INR 1.8, Sodium 137, Potassium 3.5, Chloride 104, Carbon Dioxide 19.1 L, Anion Gap 13, BUN 10, Creatinine 0.74, Estim Creat Clear Calc 64.10, Est GFR (MDRD) Non-Af 87, BUN/Creatinine Ratio 13.3, Glucose 111 H, Calcium 8.5, Vancomycin Trough 8.2 Micro: Microbiology 09/01/24 20:24 Mucosa - Nasopharyngeal Respiratory Panel (PCR) - Final 09/01/24 20:56 Nasal Secretion SARS-CoV-2 Antigen (Rapid) - Final Physical Exam Const alert Constitutional Narrative: frail, frail, weak, more communicative and less confused today General Appearance: cooperative HEENT normocephalic, head/scalp atraumatic and moist oral mucous membranes Eyes EOMs intact bilaterally and conjunctivae normal Neck supple and no JVD Resp normal respiratory effort, normal air movement, no use of accessory muscles and clear to auscultation bilaterally Cardio regular rate, regular rhythm, S1 normal heart sound, S2 normal heart sound and no murmurs GI normal to inspection, nondistended, normoactive bowel sounds and soft to palpation Extremity normal to inspection, full ROM, normal capillary refill and no clubbing, cyanosis or edema Extremity Narrative: LUE bandaged at the elbow due to elbow contusion. General Extremity: no tenderness to palpation of joints or extremities Skin General Skin Exam: no breakdown Neuro no focal motor deficits Neuro Narrative: alert, moves all extremities, weak and frail. Motor Exam: general weakness Psych Psych Narrative: flat affect Assessment & Plan Assessment/Plan (1) Adult failure to thrive: (2) Fall: (3) Unable to ambulate: (4) Contusion of hip: PLAN: Plan #Debility and weakness due to mechanical falls Patient admitted with a complaint of mechanical falls. He fell on the day of admission and also fell the day before. His legs just gave way. The EMS had to be called both times to get him up. states the last time he fell was about 2 years ago. He is on Coumadin for A-fib. Imaging done showed no evidence of any fractures. CT of the brain showed no evidence of intracranial bleed. He was hydrated with IV fluids. PT OT on board. Fall precautions. # Fever Patient developed a fever. Fever resolved and has not recurred. Urinalysis showed no evidence of UTI. Blood cultures ordered and patient started on IV vancomycin and Zosyn. WBC today is 12.3. Respiratory panel was negative. Blood cultures pending. #History of A-fib: On Coumadin. INR is 1.8 today. Not on any rate or rhythm limiting medication. I spoke to the patient's daughter and extensively about the risk of brain bleed with his history of falls as well as the risk of stroke if he is taking of the Coumadin. I explained to them that would have to be a shared decision making process and the remaining power to make the decision they felt was in the best interest of the patient. The daughter is the healthcare power of civil attorney. In light of patient's confusion in the setting of dementia, she would ultimately have to make decisions feels in the best interest of her father. She was counseled that she would need to think about it and let the medical team know what she had decided. resume coumadin today. #History of dementia: On rivastigmine #Dyslipidemia: On statin #Benign essential hypertension: On lisinopril. DVT prophylaxis: Resume Coumadin today. INR 1.8. Daughter still thinking about that she wants him to continue otherwise. Code status: DNRCCA no intubation Disposition: Will benefit from placement. PT OT on board. Charges/Coding Visit Charges Inpatient E&M: 99398 Subs Hosp L2
--- NOTE | 2024-09-03 15:48 | PCM.RX.CS ---
Consult Antibiotic Management Pharmacy has been consulted to manage selected antibiotic: Vancomycin Type of Intervention Type of Consult: Follow-up Suspected Infection Suspected Infection: Other Labs Labs: Sodium 137 mmol/L (133-145) 09/03/24 08:11 Potassium 3.5 mmol/L (3.3-5.1) 09/03/24 08:11 Chloride 104 mmol/L (98-108) 09/03/24 08:11 Carbon Dioxide 19.1 mmol/L (21.0-32.0) L 09/03/24 08:11 Anion Gap 13 (5-15) 09/03/24 08:11 BUN 10 mg/dL (4-19) 09/03/24 08:11 Creatinine 0.74 mg/dL (0.70-1.20) 09/03/24 08:11 Est GFR (MDRD) Non-Af 87 (>60) 09/03/24 08:11 BUN/Creatinine Ratio 13.3 RATIO (10-20) 09/03/24 08:11 Glucose 111 mg/dL (70-99) H 09/03/24 08:11 Vancomycin Trough 8.2 ug/mL (5.0-15.0) 09/03/24 08:11 Microbiology Microbiology: Microbiology 09/01/24 20:24 Mucosa - Nasopharyngeal Respiratory Panel (PCR) - Final 09/01/24 20:56 Nasal Secretion SARS-CoV-2 Antigen (Rapid) - Final Goal Trough Goal Trough: 15-20 mcg/mL Pharmacy Plan for Drug Dosing Pharmacy Plan for Drug Dosing: VANCOMYCIN LEVEL RECEIVED Current Vancomycin Dose: 750mg q12h Number of Doses Received: x2 doses of 750mg Vancomycin Level: 8.2 Hours Since Last Dose: 11.5 hours since last 750mg dose Renal Function: SrCr 0.74 Renal Function Trend: SrCr stable Lab/Micro: Vancomycin Plan/Comments: trough level of 8.2 is below the ordered goal trough range of 15-20. recommend changing dose to 1250mg q12h and checking a trough prior to the 4th dose Pending Level: 09/04/24 at 2130 Pharmacy Service will continue to monitor and adjust dosing as required. Follow-Up Labs Follow-Up Labs: Trough: Vancomycin (09/04/24 at 2130)
[2024-09-03] MEDS: Atorvastatin Calcium 40 MG Tablet PO (20:42)
[2024-09-04 05:00] VITALS: BP 178/80; PULSE 94; RESP 15; TEMP 36.6; O2SAT 98
[2024-09-04] MEDS: Piperacil/Tazobactam 3.375 GM in 0.9% Normal Saline (50mL MB+) 50 ML IV ×2 (05:15→13:36)
[2024-09-04 07:09] LABS: Absolute Lymphocyte Count 0.89 X10^3/uL (0.83-4.51); Absolute Neutrophil Count 8.9 X10^3/uL (2.0-7.7); Basophil# 0.09 X10^3/uL; Basophil% 0.8 % (0-1); Eosinophils% 5.3 % (0-5); Hematocrit 33.3 % (40-54); Hemoglobin 10.7 g/dL (13.0-16.5); Lymphocyte # 0.89 X10^3/ul (0.83-4.51); Lymphocyte % 7.8 % (19-41); Mean Corp Hgb Conc 32.1 g/dL (32-36); Mean Corpuscular Hgb 24.6 pg (27.0-32.0); Mean Corpuscular Volume 76.6 fL (80-94); Mean Platelet Vol. 10.6 fl (6.2-12.0); Monocyte# 0.88 X10^3/uL; Monocyte% 7.7 % (0-10); NRBC Flagged by Analyzer 0 % (0-5); Neutrophil # 8.89 X10^3/uL (2.7-7.7); Platelet Count 305 K/mm3 (150-450); RBC Distribution Width CV 17.5 % (11.6-14.6); RBC Distribution Width SD 48.3 fl (35.1-43.9); Red Blood Count 4.35 M/mm3 (4.6-6.2); White Blood Count 11.4 K/mm3 (4.4-11.0)
[2024-09-04 07:24] LABS: Anion Gap 11 (5-15); BUN 12 mg/dL (4-19); BUN/Creat Ratio 17.3 RATIO (10-20); Calcium,Total 8.2 mg/dL (7.6-11.0); Carbon Dioxide 20.9 mmol/L (21.0-32.0); Chloride 107 mmol/L (98-108); Creatinine, Serum 0.72 mg/dL (0.70-1.20); EST Glomerular Filtration Rate 87 (>60); Glucose 120 mg/dL (70-99); Potassium 3.5 mmol/L (3.3-5.1); Sodium Level 139 mmol/L (133-145)
[2024-09-04 08:06] LABS: International Normalized Ratio 1.9; Prothrombin Time (Protime)PT. 21.8 SECONDS (11.7-14.9)
[2024-09-04] MEDS: Vancomycin HCl 1,250 MG in 0.9% Normal Saline (250mL Bag) 250 ML 167 MG IV (10:01)
[2024-09-04] MEDS: Memantine Hydrochloride 10 MG Tablet PO ×2 (10:02→20:35)
[2024-09-04] MEDS: Lisinopril 10 MG Tablet PO (10:02)
--- NOTE | 2024-09-04 13:00 | CASEMGMT ---
Social Work Date of referral: 09/04/24 Reason for referral: Family requesting information regarding upcoming [facility] ([facility]) placement. Referred by: [facility] nursing Patient, patient's daughter, Blanca Julian and patient's significant other (s/o) Maria Guadalupe Salguero were all present. Patient's daughter had general questions about the SNF process and where patient is in that process. torpedo worker shared information from last Care Management note indicating that patient has been accepted at [facility] and pre-cert has been started. SNF facility to alert acute floor once pre-cert has been approved. Patient's daughter and s/o also requested to speak with patient's nurse to see how patient did through the night so sheep farm worker did leave patient's room to request nurse go update family which nurse stated she would do. No other questions/concerns/follow up needed/requested at this time. Family expressed appreciation for social work visit. Deb Cuadra, SALVAGE ENGINEER, STRINGS TEACHER
[2024-09-04] MEDS: 0.9% Normal Saline (250mL Bag) 250 ML 15 ML IV (13:40)
[2024-09-04 14:00] VITALS: O2SAT 97
[2024-09-04 14:05] VITALS: BP 148/92; PULSE 92; RESP 16; TEMP 36.9; O2SAT 97
--- NOTE | 2024-09-04 14:12 | PN_ITS ---
Subjective Subjective Patient seen and examined. He was alert and communicative and had no complaints today. He had an uneventful night. Review of systems otherwise negative. Objective Data Objective Data Vital Signs: Vital Signs Temp Pulse Resp BP Pulse Ox O2 Del Method O2 Flow Rate 97.8 F 94 15 178/80 H 98 Nasal Cannula 2 09/04/24 05:00 09/04/24 05:00 09/04/24 05:00 09/04/24 05:00 09/04/24 05:00 09/04/24 10:22 09/04/24 12:05 Oxygen Flow Rate (L/min) 2 Oxygen Delivery Method Nasal Cannula Weight: 159 lb 9.835 oz Body Mass Index (BMI) 21.6 Intake & Output: Intake and Output for Last 24 Hours 09/02/24 09/03/24 09/04/24 23:59 23:59 23:59 Intake Total 2277.92 / 2477.92 1840 / 1940 475 / 475 Output Total 950 / 950 200 / 300 150 / 150 Balance 1327.92 / 1527.92 1640 / 1640 325 / 325 Lab / Micro Data 09/04/24 05:14 09/04/24 05:14 Labs: Laboratory Results - last 24 hr 09/04/24 05:14: WBC 11.4 H, RBC 4.35 L, Hgb 10.7 L, Hct 33.3 L, MCV 76.6 L, MCH 24.6 L, MCHC 32.1, RDW Std Deviation 48.3 H, RDW Coeff of Boom 17.5 H, Plt Count 305, MPV 10.6, Immature Gran % (Auto) 0.400, Neut % (Auto) 78.0 H, Lymph % (Auto) 7.8 L, [place] % (Auto) 7.7, Eos % (Auto) 5.3 H, Baso % (Auto) 0.8, Absolute Neuts (auto) 8.9 H, Absolute Lymphs (auto) 0.89, Nucleated RBC % 0, Sodium 139, Potassium 3.5, Chloride 107, Carbon Dioxide 20.9 L, Anion Gap 11, BUN 12, Creatinine 0.72, Estim Creat Clear Calc 64.10, Est GFR (MDRD) Non-Af 87, BUN/Creatinine Ratio 17.3, Glucose 120 H, Calcium 8.2 09/04/24 07:45: PT 21.8 H, INR 1.9 Micro: Microbiology 09/01/24 20:45 Blood Culture (Wb) - Right Hand Blood Culture - Preliminary No growth in 48 hours. 09/01/24 20:45 Blood Culture (Wb) - Left Hand Blood Culture - Preliminary No growth in 48 hours. 09/01/24 20:24 Mucosa - Nasopharyngeal Respiratory Panel (PCR) - Final 09/01/24 20:56 Nasal Secretion SARS-CoV-2 Antigen (Rapid) - Final Physical Exam Const alert Constitutional Narrative: frail, weak, more communicative and less confused today General Appearance: cooperative Orientation / Consciousness: confused and disoriented HEENT normocephalic, head/scalp atraumatic and moist oral mucous membranes Eyes EOMs intact bilaterally and conjunctivae normal Neck supple and no JVD Resp Resp Narrative: Mildly diminished breath sounds bibasilarly. No wheezes or crackles. On 2 L of oxygen by nasal cannula. Cardio regular rate, regular rhythm, S1 normal heart sound, S2 normal heart sound and no murmurs GI normal to inspection, nondistended, normoactive bowel sounds, soft to palpation, non-tender and non-distended Extremity normal to inspection, full ROM, normal capillary refill and no clubbing, cyanosis or edema Extremity Narrative: LUE bandaged at the elbow due to elbow contusion. General Extremity: no tenderness to palpation of joints or extremities Skin Skin Narrative: as under extremities Neuro no focal motor deficits Neuro Narrative: alert, moves all extremities, weak and frail. Motor Exam: general weakness Psych cooperative Psych Narrative: flat affect Mood & Affect: flat affect Assessment & Plan Assessment/Plan (1) Adult failure to thrive: (2) Fall: (3) Unable to ambulate: (4) Contusion of hip: PLAN: Plan #Debility and weakness due to mechanical falls * Patient admitted with a complaint of mechanical falls. He fell on the day of admission and also fell the day before. His legs just gave way. The EMS had to be called both times to get him up. * states the last time he fell was about 2 years ago. He is on Coumadin for A-fib. * Imaging done showed no evidence of any fractures. CT of the brain showed no evidence of intracranial bleed. * PT OT on board. Fall precautions. * # Fever * Patient developed a fever. Fever resolved and has not recurred. * Urinalysis showed no evidence of UTI. * Blood cultures ordered and patient started on IV vancomycin and Zosyn. * WBC today is down to 11.3. Respiratory panel was negative. Blood cultures negative after 48 hours. Will therefore DC antibiotics. * #History of A-fib: * On Coumadin. INR is 1.9 today. Not on any rate or rhythm limiting medication. * I spoke to the patient's daughter and extensively about the risk of brain bleed with his history of falls as well as the risk of stroke if he is taking of the Coumadin. * I explained to them that would have to be a shared decision making process and the remaining power to make the decision they felt was in the best interest of the patient. * The daughter is the healthcare power of attorney recruiter. * In light of patient's confusion in the setting of dementia, she would ultimately have to make decisions feels in the best interest of her father. * She was counseled that she would need to think about it and let the medical team know what she had decided. * coumadin resumed whilst patient is in the hospital. Awaiting daughter's final decision about stopping coumadin or otherwise due to history of mechanical falls * #History of dementia: On rivastigmine #Dyslipidemia: On statin #Benign essential hypertension: On lisinopril. DVT prophylaxis: * Resume Coumadin today. INR 1.8. Daughter still thinking about that she wants him to continue otherwise. * Code status: DNRCCA no intubation * Disposition: Awaiting placement. PT OT on board. Charges/Coding Visit Charges Inpatient E&M: 15287 Subs Hosp L2
[2024-09-04 20:00] VITALS: BP 171/100; PULSE 70; RESP 15; TEMP 36.9; O2SAT 97
[2024-09-04] MEDS: Atorvastatin Calcium 40 MG Tablet PO (20:35)
[2024-09-05 04:51] LABS: Mucous, Urine 0 SEEN /hpf (<or=2+); Squamous Epithelial Cells - UA 0 SEEN /hpf (0-5)
[2024-09-05 05:15] LABS: Color, Urine Straw (Yellow); Glucose, Dipstick Normal (Normal); Ketone-Dipstick Negative (Negative); Leukocyte Esterase-Dipstick Negative /ul (Negative); Nitrite-Dipstick Negative (Negative); Occult Blood-Urine 25 /ul (Negative); Protein-Dipstick 15 mg/dl (Negative); Specific Gravity, Urine 1.005 (1.002-1.030); Urine Bilirubin Dipstick Negative (Negative); Urine Clarity Clear (Clear); Urine Urobilinogen Normal (Normal)
[2024-09-05 05:23] LABS: Bacteria RARE /hpf (None Seen); Red Blood Cells-Urine 0-5 SEEN /hpf (0-5); White Blood Cells 0-5 SEEN /hpf (0-5)
[2024-09-05 06:22] VITALS: BP 170/85; PULSE 90; RESP 15; TEMP 36.8; O2SAT 96
[2024-09-05 07:05] LABS: Absolute Lymphocyte Count 0.96 X10^3/uL (0.83-4.51); Absolute Neutrophil Count 7.6 X10^3/uL (2.0-7.7); Basophil# 0.07 X10^3/uL; Basophil% 0.7 % (0-1); Eosinophil# 0.39 X10^3/uL; Hematocrit 35.3 % (40-54); Hemoglobin 11.3 g/dL (13.0-16.5); Lymphocyte # 0.96 X10^3/ul (0.83-4.51); Lymphocyte % 9.8 % (19-41); Mean Corpuscular Hgb 24.4 pg (27.0-32.0); Mean Corpuscular Volume 76.2 fL (80-94); Mean Platelet Vol. 9.3 fl (6.2-12.0); Monocyte# 0.78 X10^3/uL; Monocyte% 7.9 % (0-10); NRBC Flagged by Analyzer 0 % (0-5); Neutrophil # 7.58 X10^3/uL (2.7-7.7); Neutrophil % 77.2 % (47-70); Platelet Count 329 K/mm3 (150-450); RBC Distribution Width CV 17.6 % (11.6-14.6); RBC Distribution Width SD 47.9 fl (35.1-43.9); Red Blood Count 4.63 M/mm3 (4.6-6.2); White Blood Count 9.8 K/mm3 (4.4-11.0)
[2024-09-05 07:18] LABS: Anion Gap 12 (5-15); BUN 8 mg/dL (4-19); BUN/Creat Ratio 13.4 RATIO (10-20); Calcium,Total 8.6 mg/dL (7.6-11.0); Carbon Dioxide 21.9 mmol/L (21.0-32.0); Chloride 105 mmol/L (98-108); Creatinine, Serum 0.62 mg/dL (0.70-1.20); EST Glomerular Filtration Rate 91 (>60); Glucose 119 mg/dL (70-99); Potassium 3.3 mmol/L (3.3-5.1); Sodium Level 139 mmol/L (133-145)
[2024-09-05 07:53] VITALS: BP 178/86; PULSE 78; RESP 18; TEMP 36.9; O2SAT 95
--- NOTE | 2024-09-05 08:58 | CASEMGMT ---
Discharge Planning Updates attached. Precert remains pending. Neeru Peguero DC Planning Asst.
[2024-09-05] MEDS: Memantine Hydrochloride 10 MG Tablet PO ×2 (08:59→20:14)
[2024-09-05] MEDS: Lisinopril 10 MG Tablet PO (08:59)
[2024-09-05 14:00] VITALS: BP 148/67; PULSE 65; RESP 18; TEMP 36.8; O2SAT 99
--- NOTE | 2024-09-05 16:08 | PN.HOSP_ITS ---
Reason for Visit Reason for Visit: Diagnoses Difficulty in walking, not elsewhere classified (09/02/24) Adult failure to thrive (09/02/24) Abrasion of unspecified elbow, initial encounter (09/02/24) Contusion of unspecified hip, initial encounter (09/02/24) Unspecified fall, initial encounter (09/02/24) Objective Data Objective Data Vital Signs: Vital Signs Temp Pulse Resp BP Pulse Ox O2 Del Method O2 Flow Rate 98.2 F 65 18 148/67 H 99 Room Air 2 09/05/24 14:00 09/05/24 14:00 09/05/24 14:00 09/05/24 14:00 09/05/24 14:00 09/05/24 14:00 09/04/24 12:05 Oxygen Flow Rate (L/min) 2 Oxygen Delivery Method Room Air Weight: 159 lb 9.835 oz Body Mass Index (BMI) 21.6 Intake & Output: Intake and Output for Last 24 Hours 09/03/24 09/04/24 09/05/24 23:59 23:59 23:59 Intake Total 1840 / 1940 884.38 / 884.38 250 / 250 Output Total 200 / 300 350 / 350 Balance 1640 / 1640 534.38 / 534.38 250 / 250 Lab / Micro Data 09/05/24 06:55 09/05/24 06:55 Labs: Laboratory Results - last 24 hr 09/05/24 03:20: Urine Color Straw, Urine Clarity Clear, Urine pH 7.0, Ur Specific [place] 1.005, Urine Protein 15 H, Urine Glucose (UA) Normal, Urine Ketones Negative, Urine Occult Blood 25 H, Urine Nitrite Negative, Urine Bilirubin Negative, Urine Urobilinogen Normal, Ur Leukocyte Esterase Negative, Urine RBC 0-5 SEEN, Urine WBC 0-5 SEEN, Ur Squamous Epith Cells 0 SEEN, Urine Bacteria RARE, Urine Mucus 0 SEEN 09/05/24 06:55: WBC 9.8, RBC 4.63, Hgb 11.3 L, Hct 35.3 L, MCV 76.2 L, MCH 24.4 L, MCHC 32.0, RDW Std Deviation 47.9 H, RDW Coeff of [place]om 17.6 H, Plt Count 329, MPV 9.3, Immature Gran % (Auto) 0.400, Neut % (Auto) 77.2 H, Lymph % (Auto) 9.8 L, [place] % (Auto) 7.9, Eos % (Auto) 4.0, Baso % (Auto) 0.7, Absolute Neuts (auto) 7.6, Absolute Lymphs (auto) 0.96, Nucleated RBC % 0, Sodium 139, Potassium 3.3, Chloride 105, Carbon Dioxide 21.9, Anion Gap 12, BUN 8, Creatinine 0.62 L, Estim Creat Clear Calc 64.10, Est GFR (MDRD) Non-Af 91, BUN/Creatinine Ratio 13.4, G lucose 119 H, Calcium 8.6 Micro: Microbiology 09/01/24 20:45 Blood Culture (Wb) - Right Hand Blood Culture - Preliminary No growth in 48 hours. 09/01/24 20:45 Blood Culture (Wb) - Left Hand Blood Culture - Preliminary No growth in 48 hours. 09/01/24 20:24 Mucosa - Nasopharyngeal Respiratory Panel (PCR) - Final 09/01/24 20:56 Nasal Secretion SARS-CoV-2 Antigen (Rapid) - Final Physical Exam Narrative Seen and examined. Patient was admitted with mechanical fall. Waiting for pre-CERT. Patient and her agreed for continuation of blood thinner/Coumadin. Risk and benefit explained Physical exam General: Alert, Oriented x3, Cooperative HEENT: Atraumatic, PERRLA, EOMI, Normocephalic. Oral: No Gingival or Mucosal Lesions/ Ulcerations Neck: Supple, No JVD, Negative Carotid Bruits Chest wall/Lungs: Air entry diminished in bilateral lung bases. No crepitation/rhonchi Cardiovascular: Irregular rhythm, A-fib normal S1,S2, No M/G/R Abdomen: Bowel Sounds Present, Soft, Non Tender, Non-Distended : No dysuria. No renal angle tenderness. No suprapubic tenderness. Extremities: No edema, Capillary Refill Less than 3 Seconds Skin: No rashes, No breakdown Musculoskeletal: No Tenderness to Palpation of Joints or Extremities Neurological: Cranial nerves II-XII grossly intact, DTR 2+/4. No acute focal neurological deficit. Psych/Mental Status: Flat affect. Assessment & Plan Assessment/Plan (1) Adult failure to thrive: (2) Fall: (3) Unable to ambulate: (4) Contusion of hip: PLAN: Plan 89-year-old gentleman was mainly admitted for debility and weakness related to mechanical fall and disequilibrium. #Debility and weakness due to mechanical falls * Patient admitted with a complaint of mechanical falls. He fell on the day of admission and also fell the day before. His legs just gave way. The EMS had to be called both times to get him up. * states the last time he fell was about 2 years ago. He is on Coumadin for A-fib. * Imaging done showed no evidence of any fractures. CT of the brain showed no evidence of intracranial bleed. * PT OT on board. Fall precautions. 09/05: For now they agree to continue Coumadin. Risk and benefit of anticoagulants including Coumadin explained to the patient and his near the bedside. # Fever * Patient developed a fever. Fever resolved and has not recurred. * Urinalysis showed no evidence of UTI. * Blood cultures ordered and patient started on IV vancomycin and Zosyn. * WBC today is down to 11.3. Respiratory panel was negative. Blood cultures negative after 48 hours. Antibiotics were discontinued #History of A-fib: * On Coumadin. INR is 1.9 today. Not on any rate or rhythm limiting medication. * I spoke to the patient's extensively about the risk of brain bleed with his history of falls as well as the risk of stroke if he is taking of the Coumadin and patient and his agreed to continue warfarin * The daughter is the healthcare power of internet e commerce specialist. #History of dementia: On rivastigmine #Dyslipidemia: On statin #Benign essential hypertension: On lisinopril. DVT prophylaxis: * Resume Coumadin today. INR 1.8. Daughter still thinking about that she wants him to continue otherwise. Code status: DNRCCA no intubation * Disposition: Awaiting placement. PT OT on board. Charges/Coding Visit Charges Inpatient E&M: 84954 Subs Hosp L2
[2024-09-05 17:31] LABS: International Normalized Ratio 2.2; Prothrombin Time (Protime)PT. 24.7 SECONDS (11.7-14.9)
[2024-09-05] MEDS: Atorvastatin Calcium 40 MG Tablet PO (20:14)
[2024-09-05] MEDS: Acetaminophen 325 MG Tablet 650 MG PO (20:18)
[2024-09-05 20:31] VITALS: BP 122/72; PULSE 59; RESP 16; TEMP 36.6; O2SAT 95
[2024-09-06 01:31] VITALS: BP 164/94; PULSE 88; RESP 16; TEMP 36.5; O2SAT 95
[2024-09-06 04:52] LABS: Absolute Lymphocyte Count 1.28 X10^3/uL (0.83-4.51); Absolute Neutrophil Count 5.2 X10^3/uL (2.0-7.7); Basophil# 0.08 X10^3/uL; Eosinophil# 0.49 X10^3/uL; Eosinophils% 6.3 % (0-5); Hematocrit 33.6 % (40-54); Hemoglobin 10.8 g/dL (13.0-16.5); Lymphocyte # 1.28 X10^3/ul (0.83-4.51); Lymphocyte % 16.4 % (19-41); Mean Corp Hgb Conc 32.1 g/dL (32-36); Mean Corpuscular Hgb 24.6 pg (27.0-32.0); Mean Corpuscular Volume 76.5 fL (80-94); Mean Platelet Vol. 9.4 fl (6.2-12.0); Monocyte# 0.71 X10^3/uL; Monocyte% 9.1 % (0-10); NRBC Flagged by Analyzer 0 % (0-5); Neutrophil % 66.8 % (47-70); Platelet Count 325 K/mm3 (150-450); RBC Distribution Width CV 17.4 % (11.6-14.6); RBC Distribution Width SD 48.2 fl (35.1-43.9); Red Blood Count 4.39 M/mm3 (4.6-6.2); White Blood Count 7.8 K/mm3 (4.4-11.0)
[2024-09-06 05:06] LABS: International Normalized Ratio 2.4
[2024-09-06 05:07] LABS: Anion Gap 10 (5-15); BUN 11 mg/dL (4-19); BUN/Creat Ratio 14.4 RATIO (10-20); Calcium,Total 8.7 mg/dL (7.6-11.0); Carbon Dioxide 24.9 mmol/L (21.0-32.0); Chloride 106 mmol/L (98-108); Creatinine, Serum 0.73 mg/dL (0.70-1.20); EST Glomerular Filtration Rate 87 (>60); Glucose 109 mg/dL (70-99); Potassium 3.5 mmol/L (3.3-5.1); Sodium Level 141 mmol/L (133-145)
[2024-09-06 07:52] VITALS: BP 107/90; PULSE 92; RESP 18; TEMP 36.4; O2SAT 97
[2024-09-06] MEDS: Memantine Hydrochloride 10 MG Tablet PO (07:59)
[2024-09-06] MEDS: Lisinopril 10 MG Tablet PO (07:59)
--- NOTE | 2024-09-06 10:03 | TREXTCAR_ITS ---
Diet Diet Order/Speech Therapy: INPATIENT Hospital Diet / Speech Therapy Order(s) 09/01/24 13:31 Diet: Regular - General Food consistency:: Regular Liquid Consistency:: Regular/Thin Routine Orders/Code Status Suppository Type: Dulcolax 10mg Suppository Frequency: Daily PRN Routine Lab Work: INR (Twice a week.) DC O2, CPAP, BIPAP needs Home O2 Discharge instructions: No Wound(s) skin tear to left elbow: Wound Type: Skin Tear Therapies Extremity Affected:: Bilateral Lower Physical Therapy: Eval and Treat Occupational Therapy: Eval and Treat Speech Therapy: Eval and Treat Problem/Diagnosis (1) Adult failure to thrive: Status: Acute Code(s): R62.7 - Adult failure to thrive (2) Fall: Status: Acute Code(s): W19.XXXA - Unspecified fall, initial encounter (3) Unable to ambulate: Status: Acute Code(s): R26.2 - Difficulty in walking, not elsewhere classified (4) Contusion of hip: Status: Acute Code(s): S70.00XA - Contusion of unspecified hip, initial encounter Plan 89-year-old gentleman was mainly admitted for debility and weakness related to mechanical fall and disequilibrium. #Debility and weakness due to mechanical falls * Patient admitted with a complaint of mechanical falls. He fell on the day of admission and also fell the day before. His legs just gave way. The EMS had to be called both times to get him up. * states the last time he fell was about 2 years ago. He is on Coumadin for A-fib. * Imaging done showed no evidence of any fractures. CT of the brain showed no evidence of intracranial bleed. * PT OT on board. Fall precautions. 09/05: For now they agree to continue Coumadin. Risk and benefit of anticoagulants including Coumadin explained to the patient and his near the bedside. # Fever * Patient developed a fever. Fever resolved and has not recurred. * Urinalysis showed no evidence of UTI. * Blood cultures ordered and patient started on IV vancomycin and Zosyn. * WBC today is down to 11.3. Respiratory panel was negative. Blood cultures negative after 48 hours. Antibiotics were discontinued #History of A-fib: * On Coumadin. INR is 1.9 today. Not on any rate or rhythm limiting medication. * I spoke to the patient's extensively about the risk of brain bleed with his history of falls as well as the risk of stroke if he is taking of the Coumadin and patient and his agreed to continue warfarin * The daughter is the healthcare power of civil attorney. #History of dementia: On rivastigmine #Dyslipidemia: On statin #Benign essential hypertension: On lisinopril. DVT prophylaxis: * Resume Coumadin today. INR 1.8. Daughter still thinking about that she wants him to continue otherwise. Code status: DNRCCA no intubation * Disposition: Awaiting placement. PT OT on board. Allergies/Procedures Done in Hospital Allergies No Known Allergies Allergy (Verified 09/01/24 07:35) Type of Care/Length of Stay Estimated LOS: Convalescent Care Less Than 30 days Type of Care Needed: Skilled Rehab Potential: Good Prognosis: Good Additional Orders/Day of Discharge Day of Discharge: 09/06/24 Dietary and Speech Recommendations Dietitian Recommendations/Changes: Will continue liberalized regular diet with consistency/texture as per PATIENT PORTAL REPRESENTATIVE. Will continue 120mL ensure plus HP 4 times per day w/ medpass. Monitor blood glucose level and restrict dietary carbohydrate as needed. Trend weights closely and adjust ONS as needed to optimize nutrition and prevent energy/pro depletion. Discharge Plan Admission Admit Date/Time: 09/02/24 12:49 Primary Reason for Your Visit: Mechanical fall Attending Provider: Navid Dominguez Primary Care Provider: Joseph Mora Consulting Providers: Kathy Wells Discharge Orders/Prescriptions Prescriptions: New polyethylene glycol 3350 [Miralax] 17 gram/dose powder 17 g PO DAILY 30 Days Qty: 510 0RF Continued warfarin 2.5 MG tablet 2.5 mg PO DAILY atorvastatin 40 mg Tablet 40 mg PO QHS Qty: 30 0RF lisinopril 10 mg tablet 10 mg PO DAILY Qty: 30 0RF memantine 10 mg tablet 10 mg PO BID rivastigmine 4.6 mg/24 hour patch 24 hour 1 patch topical DAILY Referrals / Follow Up: Joseph Mora MD [Primary Care Provider] - Disposition Disposition (needs filled in before D/C Order can be placed): Assisted Facility
--- NOTE | 2024-09-06 10:05 | CASEMGMT ---
Social Work- SW received notice of precert approval. SW updated pt and pt dtr Blanca. SW provided education on SNF process to Blanca. Pt confused and unsure why he is in the hospital. Pt dtr reports that she spoke with pt who asked her as well when he arrived at the hospital and why he was admitted. SW remains available to follow. DEANDRE Daigle
--- NOTE | 2024-09-06 11:09 | DS.PCM_ITS ---
Providers Date of Admission: 09/02/24 Date of Discharge: 09/06/24 Primary Care Physician: Dr. Joseph Mora MD Reason For Visit: DEBILITY, MECHANICAL FALL Diagnosis Discharge Diagnosis (1) Adult failure to thrive: Status: Acute Code(s): R62.7 - Adult failure to thrive (2) Fall: Status: Acute Code(s): W19.XXXA - Unspecified fall, initial encounter (3) Unable to ambulate: Status: Acute Code(s): R26.2 - Difficulty in walking, not elsewhere classified (4) Contusion of hip: Status: Acute Code(s): S70.00XA - Contusion of unspecified hip, initial encounter Plan 89-year-old gentleman was mainly admitted for debility and weakness related to mechanical fall and disequilibrium. #Debility and weakness due to mechanical falls * Patient admitted with a complaint of mechanical falls. He fell on the day of admission and also fell the day before. His legs just gave way. The EMS had to be called both times to get him up. * states the last time he fell was about 2 years ago. He is on Coumadin for A-fib. * Imaging done showed no evidence of any fractures. CT of the brain showed no evidence of intracranial bleed. * PT OT on board. Fall precautions. 09/05: For now they agree to continue Coumadin. Risk and benefit of anticoagulants including Coumadin explained to the patient and his near the bedside. 09/06: INR 2.4. Hold warfarin today and resume tomorrow. H&H 10.8/33.6%, moderate chronic anemia # Fever * Patient developed a fever. Fever resolved and has not recurred. * Urinalysis showed no evidence of UTI. * Blood cultures ordered and patient started on IV vancomycin and Zosyn. * WBC today is down to 11.3. Respiratory panel was negative. Blood cultures negative after 48 hours. Antibiotics were discontinued #History of A-fib: * On Coumadin. INR is 1.9 today. Not on any rate or rhythm limiting medication. * I spoke to the patient's extensively about the risk of brain bleed with his history of falls as well as the risk of stroke if he is taking of the Coumadin and patient and his agreed to continue warfarin * The daughter is the healthcare power of staff attorney. #History of dementia: On rivastigmine #Dyslipidemia: On statin #Benign essential hypertension: On lisinopril. DVT prophylaxis: * Resume Coumadin today. INR 1.8. Daughter still thinking about that she wants him to continue otherwise. Code status: DNRCCA no intubation * Discharge medication reconciliation done. Discharge follow-up instructions completed. Discharge process discussed with the patient and all questions were answered to patient's satisfaction. Follow with PCP in 1 to 2 weeks Total time spent, exact 35 minutes on discharge meds reconciliation, examination, coordination of care with nurses and ancillary staff, review of imaging and blood test and discussion with the patient on follow-up instructions. Medications at Discharge Home Medications atorvastatin 40 mg tablet 40 mg PO QHS #30 tabs 12/22/21 lisinopril 10 mg tablet 10 mg PO DAILY #30 tabs 12/22/21 memantine 10 mg tablet 10 mg PO BID 09/01/24 rivastigmine 4.6 mg/24 hour transdermal patch 1 patch topical DAILY 09/01/24 polyethylene glycol 3350 17 gram/dose oral powder (Miralax) 17 g PO DAILY 1 month #510 grams 09/06/24 warfarin 2 mg tablet 2 mg PO .evening #30 tabs 09/06/24 Physical Exam Narrative Seen and examined. Patient was admitted with mechanical fall. Waiting for pre-CERT. Patient and her agreed for continuation of blood thinner/Coumadin. Risk and benefit explained and patient and family agreed to take warfarin. Advised to hold warfarin today Physical exam General: Alert, Oriented x3, Cooperative HEENT: Atraumatic, PERRLA, EOMI, Normocephalic. Oral: No Gingival or Mucosal Lesions/ Ulcerations Neck: Supple, No JVD, Negative Carotid Bruits Chest wall/Lungs: Air entry diminished in bilateral lung bases. No crepitation/rhonchi Cardiovascular: Irregular rhythm, A-fib normal S1,S2, No M/G/R Abdomen: Bowel Sounds Present, Soft, Non Tender, Non-Distended : No dysuria. No renal angle tenderness. No suprapubic tenderness. Extremities: No edema, Capillary Refill Less than 3 Seconds Skin: No rashes, No breakdown Musculoskeletal: No Tenderness to Palpation of Joints or Extremities Neurological: Cranial nerves II-XII grossly intact, DTR 2+/4. No acute focal neurological deficit. Psych/Mental Status: Flat affect. Weight / BMI Weight Weight: 159 lb 9.835 oz Body Mass Index (BMI) 21.6 ABG / Lab / Microbiology Data 09/06/24 04:00 09/06/24 04:00 Laboratory: Laboratory Results - last 24 hr 09/05/24 16:55: PT 24.7 H, INR 2.2 09/06/24 04:00: WBC 7.8, RBC 4.39 L, Hgb 10.8 L, Hct 33.6 L, MCV 76.5 L, MCH 24.6 L, MCHC 32.1, RDW Std Deviation 48.2 H, RDW Coeff of [place]om 17.4 H, Plt Count 325, MPV 9.4, Immature Gran % (Auto) 0.400, Neut % (Auto) 66.8, Lymph % (Auto) 16.4 L, [place] % (Auto) 9.1, Eos % (Auto) 6.3 H, Baso % (Auto) 1.0, Absolute Neuts (auto) 5.2, Absolute Lymphs (auto) 1.28, Nucleated RBC % 0, PT 27.0 H, INR 2.4, Sodium 141, Potassium 3.5, Chloride 106, Carbon Dioxide 24.9, Anion Gap 10, BUN 11, Creatinine 0.73, Estim Creat Clear Calc 64.10, Est GFR (MDRD) Non-Af 87, BUN/Creatinine Ratio 14.4, Glucose 109 H, Calcium 8.7 Microbiology: Microbiology 09/01/24 20:45 Blood Culture (Wb) - Right Hand Blood Culture - Preliminary No growth in 48 hours. 09/01/24 20:45 Blood Culture (Wb) - Left Hand Blood Culture - Preliminary No growth in 48 hours. 09/01/24 20:24 Mucosa - Nasopharyngeal Respiratory Panel (PCR) - Final 09/01/24 20:56 Nasal Secretion SARS-CoV-2 Antigen (Rapid) - Final D/C Instructions DC O2, CPAP, BIPAP Needs Home O2 Discharge instructions: No Meaningful Use Info Meaningful Use Meaningful Use Diagnoses (Choose all that apply): None applicable Ischemic Stroke Statin Dosing Therapy Reference: STATIN DOSE THERAPY REFERENCE: * Patients > 75 years receive moderate or high dose statin therapy. * Patients 75 years or YOUNGER should receive HIGH intensity statin dose unless contraindicated. You will be required to document reason for non-treatment if statin daily dose does not meet guidelines. HIGH DOSE STATIN THERAPY DAILY Atorvastatin > than or = to 40 mg Rosuvastatin > than or = to 20 mg Amlodipine + Atorvastatin > than or = to 2.5/40 mg Ezetimibe + Simvastatin 10/80 mg Simvastatin 80mg Discharge Plan Admission Admit Date/Time: 09/02/24 12:49 Primary Reason for Your Visit: Mechanical fall Attending Provider: Navid Dominguez Primary Care Provider: Joseph Mora Consulting Providers: Kathy Wells Instructions Additional Instructions / Restrictions: Start warfarin from tomorrow. Discharge Orders/Prescriptions Prescriptions: New polyethylene glycol 3350 [Miralax] 17 gram/dose powder 17 g PO DAILY 30 Days Qty: 510 0RF warfarin 2 mg tablet 2 mg PO .evening Qty: 30 0RF Rx Instructions: Hold if INR more than 2.5. Start from 09/07/2024 Continued atorvastatin 40 mg Tablet 40 mg PO QHS Qty: 30 0RF lisinopril 10 mg tablet 10 mg PO DAILY Qty: 30 0RF memantine 10 mg tablet 10 mg PO BID rivastigmine 4.6 mg/24 hour patch 24 hour 1 patch topical DAILY Discontinued warfarin 2.5 MG tablet 2.5 mg PO DAILY Referrals / Follow Up: Joseph Mora MD [Primary Care Provider] - Disposition Disposition (needs filled in before D/C Order can be placed): [facility] Facility Charges/Coding Visit Charges Inpatient E&M: 01860 Disch Hosp >30min
--- NOTE | 2024-09-06 11:43 | PHA.DC.MR.R ---
Pharmacy [place] Med Reconciliation Pharmacy Service has performed discharge medication reconciliation for this patient. The patient's discharge medication list was reviewed for discrepancies and discrepancies were resolved. Medications at Discharge Home Medications atorvastatin 40 mg tablet 40 mg PO QHS #30 tabs 12/22/21 lisinopril 10 mg tablet 10 mg PO DAILY #30 tabs 12/22/21 memantine 10 mg tablet 10 mg PO BID 09/01/24 rivastigmine 4.6 mg/24 hour transdermal patch 1 patch topical DAILY 09/01/24 polyethylene glycol 3350 17 gram/dose oral powder (Miralax) 17 g PO DAILY 1 month #510 grams 09/06/24 warfarin 2 mg tablet 2 mg PO .evening #30 tabs 09/06/24
--- NOTE | 2024-09-06 12:28 | NURSING ---
Called report to Jenna at [facility] [phone]. Pt to be picked up at 15:00.
--- NOTE | 2024-09-06 12:29 | CASEMGMT ---
Discharge Planning Discharge orders, signed med list, and transport time sent to [facility]. Physicians will transport pt by cot at 3p. Nursing, SW, and pts daughter (Blanca) updated. Neeru Peguero DC Planning Asst.
--- NOTE | 2024-09-06 13:16 | CASEMGMT ---
Social Work Precert has been obtained.? Physician updated and pt is ready for discharge today.? PASRR form completed in [facility]. Bedside nurse notified of discharge time. DCA notified of discharge readiness. DCA to complete all final arrangements and notifications. Disposition:[facility], skilled level of care under convalescent stay. DEANDRE Daigle
[2024-09-06 14:15] VITALS: BP 137/88; PULSE 78; RESP 18; TEMP 36.6; O2SAT 97
== END 2024-09-06 16:37 | disposition skilled nursing facility (03) | DRG 884 ==
LOC: ED 10:24 → MS3 11:29
PROVIDERS: Internal Medicine; Admitting Provider Student in an Organized Health Care Education/Training Program; Emergency Provider Emergency Medicine; PCP Family Medicine; Visit Provider Internal Medicine
DX: F03.90 Unspecified dementia, unspecified severity, without behavioral disturbance, psychotic disturbance, mood disturbance, and anxiety (principal); R62.7 Adult failure to thrive; Z66 Do not resuscitate; I10 Essential (primary) hypertension; I48.0 Paroxysmal atrial fibrillation; E78.5 Hyperlipidemia, unspecified; I25.10 Atherosclerotic heart disease of native coronary artery without angina pectoris; S50.312A Abrasion of left elbow, initial encounter; S70.00XA Contusion of unspecified hip, initial encounter; R26.2 Difficulty in walking, not elsewhere classified; W19.XXXA Unspecified fall, initial encounter; R53.81 Other malaise; Z87.891 Personal history of nicotine dependence; Z79.2 Long term (current) use of antibiotics; Z95.5 Presence of coronary angioplasty implant and graft; Z81.8 Family history of other mental and behavioral disorders; Z79.01 Long term (current) 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; Z75.1 Person awaiting admission to adequate facility elsewhere; Z68.21 Body mass index [BMI] 21.0-21.9, adult
CPT/HCPCS: 36415; 70450; 71045; 73521; 80048; 80202; 81001; 84145; 85025; 85610; 85652; 86140; 87040; 87633; 87811; 97162; 97166; 97530; 97535; 99285; A4216

== ENCOUNTER → 2024-09-26 | Outpatient (REF) | payer MEDICARE, SELFPAY ==
[2024-09-26 07:30] LABS: INR Fingerstick 2.5
== END ==
LOC: OLS.WHLTCC 05:00
PROVIDERS: PCP Family Medicine; Visit Provider Internal Medicine
DX: I48.91 Unspecified atrial fibrillation (principal)
CPT/HCPCS: 36416; 85610

== ENCOUNTER → 2024-09-28 | Outpatient (REF) | payer MEDICARE, SELFPAY ==
[2024-09-28 07:26] LABS: Hematocrit 37.0 % (40-54); Hemoglobin 11.5 g/dL (13.0-16.5); Immature Granulocytes Count 0.020 X10^3/uL (0.0-0.0); Mean Corp Hgb Conc 31.1 g/dL (32-36); Mean Corpuscular Volume 80.3 fL (80-94); Mean Platelet Vol. 10.5 fl (6.2-12.0); NRBC Flagged by Analyzer 0 % (0-5); Platelet Count 280 K/mm3 (150-450); RBC Distribution Width CV 18.3 % (11.6-14.6); RBC Distribution Width SD 52.8 fl (35.1-43.9); Red Blood Count 4.61 M/mm3 (4.6-6.2); White Blood Count 7.0 K/mm3 (4.4-11.0)
[2024-09-28 08:03] LABS: Anion Gap 13 (5-15); BUN 14 mg/dL (4-19); BUN/Creat Ratio 19.9 RATIO (10-20); Calcium,Total 8.9 mg/dL (7.6-11.0); Carbon Dioxide 21.1 mmol/L (21.0-32.0); Chloride 105 mmol/L (98-108); Glucose 91 mg/dL (70-99); Potassium 4.0 mmol/L (3.3-5.1)
== END ==
LOC: OLS.WHLTCC 05:00
PROVIDERS: PCP Family Medicine; Visit Provider Internal Medicine
DX: I10 Essential (primary) hypertension (principal); M25.851 Other specified joint disorders, right hip; M25.852 Other specified joint disorders, left hip; S70.01XD Contusion of right hip, subsequent encounter; M25.551 Pain in right hip; M25.552 Pain in left hip; M62.561 Muscle wasting and atrophy, not elsewhere classified, right lower leg
CPT/HCPCS: 36415; 80048; 85025

== ENCOUNTER → 2024-09-29 05:00 | Outpatient (REF) | payer MEDICARE, SELFPAY ==
[2024-09-29 09:45] LABS: Prothrombin Time (Protime)PT. 34.4 SECONDS (11.7-14.9)
== END ==
LOC: OLS.WHLTCC 05:00
PROVIDERS: PCP Family Medicine; Visit Provider Internal Medicine
DX: M25.851 Other specified joint disorders, right hip (principal); M25.852 Other specified joint disorders, left hip; M25.552 Pain in left hip; M25.551 Pain in right hip; M62.561 Muscle wasting and atrophy, not elsewhere classified, right lower leg; S70.01XD Contusion of right hip, subsequent encounter; I48.91 Unspecified atrial fibrillation
CPT/HCPCS: 36415; 85610

== ENCOUNTER → 2024-10-05 05:00 | Outpatient (REF) | payer MEDICARE, SELFPAY ==
--- OUTSIDE RECORDS SUMMARY | 2024-10-05 07:00 | XMS RPT_ITS | CCD ---
Author Organization [facility] Care Team Providers Care [employer] Consultant Name Role Phone TEEAISHA LLODYNETH E Unavailable Unavailable TEE DARRELL E Unavailable Unavailable AISHA OLIVEIRANETH Unavailable Unavailable DARRELL OLIVEIRA Unavailable Unavailable tSas Mora Unavailable Unavailable DARRELL OLIVEIRA Unavailable Unavailable [...] NONE Primary Care Physician Unavailab Stas Menjivar MD Primary Care Provider PAYTON IBANEZ DO Attending Unavailable PHYSICIAN, NONE Primary Care Unavailable PHYSICIAN, NONE Primary Care Unavailable STERLING LYNCH DO Attending Unavailable Tannhof CONSTRUCTION DRILLER.INSOLE LIP TURNER, Jenna Unavailable Caio CONSTRUCTION DRILLER.INSOLE LIP TURNER, Elvis Unavailable LUCIANA CISNEROS Referring Unavailable ELDERBROCKSTAS Primary Care Unavailable Tannhof CONSTRUCTION DRILLER.INSOLE LIP TURNER, Jenna Unavailable Unavail able [place]annhof CONSTRUCTION DRILLER.INSOLE LIP TURNER, Jenna Unavailable Morgan POLANCO, Dr. Ruiz Primary Care Provider Jose Miguel POLANCO, Dr. Jansen Emergency Provider Priscilla POLANCO, Dr. Kathy Bearden Admit Provider Priscilla POLANCO, Dr. Kathy Bearden Attending Provider Priscilla POLANCO, Dr. Kathy Bearden Other Provider Alberto POLANCO, Dr. Shoemaker Attending Provider Alberto POLANCO, Dr. Shoemaker Other Provider Oleghe OLS, Efewongbe Attending Unavailabl e Elderbrock, Stas Primary Care Unavailable Oleghe OLS, Efewongbe Attending Unavailabl e Elderbrock, Stas Primary Care Unavailable Oleghe OLS, Efewongbe Attending Unavailabl e Elderbrock, Stas Primary Care Unavailable Navid Dominguez Attending Unavailable Koram, Kathy Monisha Consulting Unavailable Koram, Kathy Monisha Admitting Unavailable Elderbrock, Stas Primary Care Unavailable Navid Dominguez Consulting Unavailable Koram, Kathy Monisha Attending Unavailable Koram, Kathy Monisha Admitting Unavailable Koram, Kahty Monisha Attending Unavailable Elderbrock, Stas Primary Care Unavailable Koram, Kathy Monisha Consulting Unavailable Oleghe OLS, Efewongbe Referring Unavailabl e Oleghe OLS, Efewongbe Attending Unavailabl e Elderbrock, Stas Primary Care Unavailable Oleghe OLS, Efewongbe Attending Unavailabl e Elderbrock, Stas Primary Care Unavailable Oleghe OLS, Efewongbe Attending Unavailabl e Elderbrock, Stas Primary Care Unavailable Oleghe OLS, Efewongbe Attending Unavailabl e Elderbrock, Stas Primary Care Unavailable Oleghe OLS, Efewongbe Attending Unavailabl e Elderbrock, Stas Primary Care Unavailable Koram, Kathy Monisha Admitting Unavailable Elderbrock, Stas Primary Care Unavailable Alberto, Navid Attending Unavailable Koram, Kathy Monisha Consulting Unavailable Oleghe OLS, Efewongbe Attending Unavailabl e Elderbrock, Stas Primary Care Unavailable Oleghe OLS, Efewongbe Attending Unavailabl e Elderbrock, Stas Primary Care Unavailable Oleghe OLS, Efewongbe Attending Unavailabl e Elderbrock, Stas Primary Care Unavailable ELDERBROCK, STAS D Primary Care Unavailable GANTA, LUCIANA Attending Unavailable ELDERBROCK, STAS D Referring Unavailable ELDERBROCK, STAS D Primary Care Unavailable ELDERBROCK, STAS D Referring Unavailable ELDERBROCK, STAS D Primary Care Unavailable ELDERBROCK, STAS D Referring Unavailable ELDERBROCK, STAS Maya Primary Care Unavailable ELDERBROCK, STAS Maya Primary Care Unavailable ELDERBROCK, STAS D Referring Unavailable ELDERBROCK, STAS Maya Attending Unavailable ELDERBROCK, STAS Trejo Primary Care Unavailable ELDERBROCK, STAS Maya Referring Unavailable ELDERBROCK, STAS Maya Primary Care Unavailable ELDERBROCK, STAS Maya Referring Unavailable ELDERBROCK, STAS Maya Primary Care Unavailable ELDERBROCK, STAS Maya Referring Unavailable GANTA, LUCIANA Attending Unavailable ELDERBROCK, STAS Maya Primary Care Unavailable ELDERBROCK, STAS Maya Referring Unavailable ELDERBROCK, STAS Maya Primary Care Unavailable ELDERBROCK, STAS Maya Referring Unavailable ELDERBROCK, STAS Maya Primary Care Unavailable ELDERBROCK, STAS D Referring Unavailable ELDERBROCK, STAS Maya Primary Care Unavailable ELDERBROCK, STAS Maya Referring Unavailable ELDERBROCK, STAS Maya Primary Care Unavailable ELDERBROCK, STAS Maya Referring Unavailable ELDERBROCK, STAS Maya Primary Care Unavailable ELDERBROCK, STAS Maya Primary Care Unavailable ELDERBROCK, STAS Maya Referring Unavailable ELDERBROCK, STAS Maya Referring Unavailable ELDERBROCK, STAS Maya Primary Care Unavailable ELDERBROCK, STAS Maya Attending Unavailable ELDERBROCK, STAS Maya Primary Care Unavailable ELDERBROCK, STAS Maya Primary Care Unavailable GANTA, LUCIANA Attending Unavailable ELDERBROCK, STAS D Referring Unavailable ELDERBROCK, STAS D Primary Care Unavailable ELDERBROCK, STAS D Primary Care Unavailable GANTA, LUCIANA Referring Unavailable ELDERBROCK, STAS D Referring Unavailable ELDERBROCK, STAS D Primary Care Unavailable ELDERBROCK, STAS D Attending Unavailable ELDERBROCK, STAS D Primary Care Unavailable ELDERBROCK, STAS D Referring Unavailable ELDERBROCK, STAS D Primary Care Unavailable Medications Current Medications Medication Drug Class(es) Dates Sig (Normalized) Sig (Original) atorvastatin 40 mg oral tablet (20 sources) HMG-CoA Reductase Inhibitor Start: 12-22-2021 End: 05-26-2024 take 1 tablet by mouth once daily at bedtime atorvastatin (LIPITOR) 40 mg tablet Indications: Hyperlipidemia, unspecified hyperlipidemia type , Atherosclerosis 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, unspecified vessel or lesion type, unspecified whether [place] or transplanted heart Take 1 tablet by [...] unspecified vessel or lesion type, unspecified whether [place] or transplanted heart Take 1 tablet by [...] by mouth. Take 1 tablet by darrian th once daily. memantine hydrochloride 10 mg oral tablet (12 sources) I-clhtnu-R-aspartate Receptor Antagonist Start: 06-02-19 End: 11-29-19 take [...] med (Hx) Start Date: 01/01/06 Status: Ordered polyethylene glycol 3350 22006 mg powder for oral solution (1 source) Osmotic Laxative Start: 09-07-19 Polyethylene Glycol 3350 (Miralax) 17 gram/dose powder Active 17 g PO DAILY 510 September 06, 2024 12:00am 24 hr rivastigmine 0.192 mg/hr transdermal system (6 sources) Start: 09-02-19 Rivastigmine 4.6 mg/24 hour [...] Comment on above: Take 1 capsule by [facility] daily at bedtime. vardenafil 10 mg oral tablet (1 source) Phosphodiesterase 5 Inhibitor Start: 01-01-2006 take 1 tablet by mouth once daily as needed vardenafil 10 mg oral tablet See Instructions, PO daily as needed, 0 Refill(s), current med (Hx) Start Date: 01/01/06 Status: Ordered warfarin sodium 2 mg oral tablet (20 sources) Vitamin K Antagonist Start: 09-06-2024 Warfarin 2 mg tablet Active 2 mg PO .evening September 06, 2024 12:00am Hold if INR more than 2.5. Start from 09/07/2024 Start: 01-04-2024 End: 01-03-2025 warfarin (COUMADIN) 3 mg tab let Indications: Paroxysmal atrial fibrillation (HCC) Take as [...] tablet 3 06/23/2022 Active Start: 10-06-2017 End: 09-06-2024 warfarin (COUMADIN) 2.5 mg t ablet Take as directed by anticoagulation clinic 30 tablet 03/03/2024 Active Comment on above: 5 mg every Mon, Dixie; 2.5 mg all other days TAKE 5 MG EVERY MON, DIXIE 2.5 MG ALL OTHER DAYS Take 2.5 mg everyday Take 2.5 mg everyday except 3.75 mg on Fridays Take 1 tablet by darrian th once daily. Take 1 tablet by darrian th daily as directed. 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, psychotic disturbance, mood disturbance, or anxiety (HCC)] Onset: 04-27-2024 08-14-2023 Chronic Diabetes mellitus without complication (5 sources) Hyperglycemia; Translations: [Hyperglycemia, unspecified] 02-19-2021 Episodic Disorders of lipid metabolism (20 sources) Dyslipidemia; Translations: [Hyperlipidemia, unspecified] Onset: 08-26-2022 Chronic E Codes: Fall (5 sources) Fall; Translations: [Unspecified fall, initial encounter] Onset: 09-06-2024 09-01-2024 Episodic Essential hypertension (20 sources) Benign essential hypertension; Translations: [Essential (primary) hypertension] Onset: 10-07-2005 10-07-2005 Chronic Fluid and electrolyte disorders (5 sources) Lactic acidosis; Translations: [Acidosis] 02-19-2021 Episodic Genitourinary symptoms and ill-defined conditions (1 source) Increased frequency of urination; Translations: [Frequency of micturition] 11-26-2023 Episodic Late effects of cerebrovascular disease (3 sources) Sequela of cerebrovascular accident; Translations: [Unspecified sequelae of cerebral infarction] 06-01-2023 Chronic Malaise and fatigue (4 sources) Asthenia; Translations: [Weakness] 02-10-2023 Episodic Open wounds of head; neck; [...] than malignant neoplasm] Episodic Other circulatory disease (4 sources) H/O: atrial fibrillation; Translations: [Personal history of other diseases of the circulatory system] 09-01-2024 Episodic Other circulatory disease (4 sources) History of transient ischemic attack; Translations: [...] parkinsonism] 06-01-2024 Chronic Other nervous system disorders (4 sources) Unable to walk; Translations: [Difficulty in walking, not elsewhere classified] 09-01-2024 Chronic Other nervous system disorders (2 sources) Difficulty in walking, not elsewhere classified; Translations: [Difficulty in walking, not elsewhere classified] Onset: 04-27-2024 Chronic Other nervous system disorders (1 source) Vascular parkinsonism; 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)] Onset: 06-01-2024 Chronic Other nervous system disorders (2 sources) [...] Episodic Other nutritional; endocrine; and metabolic disorders (4 sources) Adult failure to thrive syndrome; Translations: [Adult failure to thrive] 09-01-2024 Episodic Other nutritional; endocrine; and metabolic disorders (1 source) Adult failure to thrive; Translations: [Adult failure to thrive] Onset: 09-06-2024 Episodic Pneumonia (except that caused by tuberculosis or sexually transmitted disease) (5 sources) Community acquired pneumonia; Translations: [Pneumonia, unspecified organism] 02-10-2021 Episodic Residual codes; unclassified (3 sources) Bilateral lower leg edema; Translations: [Localized edema] 09-15-2023 Episodic Residual codes; unclassified (1 source) Hallucinations; Translations: [Hallucinations, unspecified] 08-31-2024 Episodic Screening and history of mental health and substance abuse codes (6 sources) H/O: dementia; Translations: [Personal history of other mental and behavioral disorders] Onset: 08-31-2024 09-01-2024 Episodic Spondylosis; intervertebral disc disorders; other back problems (1 source) Acute low back pain; Translations: [Acute right-sided low back pain, unspecified whether sciatica present] 03-12-2020 Episodic Superficial injury; contusion (8 sources) Contusion of hip; Translations: [Contusion of unspecified hip, initial encounter] Onset: 09-06-2024 09-01-2024 Episodic Syncope (5 sources) Syncope; Translations: [Syncope and collapse] 09-08-2016 Episodic Thyroid disorders (1 source) Thyroid nodule; Translations: [Nontoxic single thyroid nodule] Chronic Transient cerebral ischemia (8 sources) Transient cerebral ischemia; Translations: [Transient cerebral ischemic attack, unspecified] Chronic Unclassified (1 source) Unknown / UNK(Unknown) Onset: 06-02-2017 Unclassified (1 source) heart cath Onset: 03-23-2005 01-05-2006 Unclassified (1 source) Moderate dementia without behavioral disturbance, psychotic disturbance, mood disturbance, or anxiety, unspecified dementia type (HCC); Translations: [Moderate dementia without behavioral disturbance, psychotic disturbance, mood disturbance, or anxiety, unspecified dementia type (HCC)] Onset: 08-31-2024 Past or Other Problems Problem Classification Problem [...] sources) Long-term current use of anticoagulant; Translations: [manager 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 (current) 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] Onset: 09-22-2016 Episodic Other aftercare (3 sources) care home (current) 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; Translations: [Long-term (current) 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] Onset: 07-19-2018 Episodic Other nervous system disorders (1 source) Other symptoms and signs involving cognitive functions and awareness; Translations: [Cognitive impairment] Onset: 04-27-2024 Episodic Other nervous system disorders (2 sources) Other abnormalities of gait and mobility; Translations: [Shuffling gait] Onset: 04-27-2024 Episodic Other screening for suspected conditions (not mental disorders or infectious disease) (4 sources) INR raised; Translations: [Abnormal coagulation profile] Onset: 05-25-2024 Episodic Results Test Name Value Interpretation Reference Range Facility [facility] 09-21-2024 [facility] Telephone ([facility]) ROBY FLORES ([id number]) 1935 M Date Time Provider Department 09/21/24 STAS MORA [facility] During your visit today, we recorded the following information about you: Petty Vargas 09/21/2024 9:23 AM Signed [facility] for rehabilitation. Maria Guadalupe states that he has been in there for two weeks. Please advise Allergies As of Date: 09/21/2024 (No Known Allergies) Date Reviewed: 08/31/2024 Reviewed by: Wendy Faulkner MA - Fully Assessed Prescriptions as of 09/22/2024 - rivastigmine (EXELON) 4.6 mg/24 hour patch Apply 1 patch as directed once daily. - memantine (NAMENDA) 10 mg tablet Take [...] as directed. 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, [address] PROTIME Normal 11.7-14.9 [facility] Comment on above: Result Comment: Canc elled via OM: Order cancelled - Patient discharged Performed By: #### L 300.3900 #### [facility] [address] [place], [address] Culture, Blood (WB)on 2024 CUB No growth in [address] [facility] Comment on above: Performed By: #### M 200.1000, L509.7001, L101.9900, L501.6710 #### [facility] [address] [place], [address] Prothrombin Time w/INRon INR Normal [facility] Comment on above: Result Comment: Canc elled via OM: Order cancelled - Patient discharged Performed By: #### L 300.3900 #### [facility] [address] [place], [address] PROTIME Normal 11.7-14.9 [facility] Comment on above: Result Comment: Canc elled via OM: Order cancelled - Patient discharged Performed By: #### L 300.3900 #### [facility] [address] [place], [address] Absolute lymphocyte countOrd ered By: Navid Dominguez on 09-06-2024 Lymphocytes Auto (Unsp spec) [#/Vol] 1.28 10*3/uL 0.83-4.51 [facility] Absolute neutrophil countOrd ered By: Navid Dominguez on 09-06-2024 Neutrophils (Bld) [#/Vol] 5.2 10*3/uL 2.0-7.7 [facility] Anion gap in Serum or Plasma Ordered By: Navid Dominguez on 09-06-2024 Anion gap [Moles/Vol] 10 mmol/L 5-15 [facility] Automated blood erythrocyte countOrdered By: Navid Dominguez on 09-06-2024 RBC (Bld) [#/Vol] 4.39 10*6/uL Low 4.6-6.2 [facility] Comment on above: Performed By: #### L 100.0100, L500.2500, L300.3900 #### [facility] [address] [place], [address] Automated blood hematocrit ( percentage)Ordered By: Navid Dominguez on 09-06-2024 Hematocrit (Bld) [Volume fraction] 33.6 % Low 40-54 [facility] Comment on above: Performed By: #### L 100.0100, L500.2500, L300.3900 #### [facility] [address] [place], [address] Automated lymphocyte count a s percentage of total leukocytesOrdered By: Navid Dominguez on 09-06-2024 Lymphocytes/100 WBC Auto (Unsp spec) 16.4 % Low 19-41 [facility] BUN/creatinine ratioOrdered By: Navid Dominguez on 09-06-2024 Urea nitrogen/Creatinine [Mass ratio] 14.4 mg/mg 10-20 [facility] Basic Metabolic Profile (BMP )on 09-06-2024 BUN/CRE 14.4 RATIO Normal -20 [facility] Comment on above: Performed By: #### M 200.1000, L509.7001, L101.9900, L501.6710 #### [facility] [address] [place], [address] ECRCL 64.10 ml/min Normal 50-250 [facility] Comment on above: Performed By: #### M 200.1000, L509.7001, L101.9900, L501.6710 #### [facility] [address] [place], [address] GAP 10 Normal 5-15 [facility] Comment on above: Performed By: #### M 200.1000, L509.7001, L101.9900, L501.6710 #### [facility] [address] [place], [address] Potassium [Moles/Vol] 3.5 mmol/L Normal 3.3-5.1 [facility] Comment on above: Performed By: #### M 200.1000, L509.7001, L101.9900, L501.6710 #### [facility] [address] [place], [address] Basophil percentageOrdered B y: Navid Alberto on 09-06-2024 Basophils/100 WBC (Bld) 1.0 % Normal 0-1 [facility] Comment on above: Performed By: #### L 100.0100, L500.2500, L300.3900 #### [facility] [address] [place], [address] CBC W/Diff, Automatedon 08-21 Absolute Lymph 1.28 X10 3/uL Normal 0.83-4.51 [facility] Comment on above: Performed By: #### L 100.0100, L500.2500, L300.3900 #### [facility] [address] [place], [address] Absolute Neut 5.2 X10 3/uL Normal 2.0-7.7 [facility] Comment on above: Performed By: #### L 100.0100, L500.2500, L300.3900 #### [facility] [address] [place], [address] IG% 0.400 Normal 0.0-0.9 [facility] Comment on above: Result Comment: IG% - Immature Granulocytes (promyelocytes, myelocytes and metamyelocytes) > 1% indicates that a LEFT SHIFT is Present. Performed By: #### L 100.0100, L500.2500, L300.3900 #### [facility] [address] [place], [address] Lymphocytes/100 WBC (Bld) 16.4 % Low 19-41 [facility] Comment on above: Performed By: #### L 100.0100, L500.2500, L300.3900 #### [facility] [address] [place], [address] Nucleated RBC (Bld) [#/Vol] 0 10*3/uL Normal 0-5 [facility] Comment on above: Performed By: #### L 100.0100, L500.2500, L300.3900 #### [facility] [address] [place], [address] RDW SD 48.2 fl High 35.1-43.9 [facility] Comment on above: Performed By: #### L 100.0100, L500.2500, L300.3900 #### [facility] [address] [place], [address] Carbon dioxide, total [Moles /volume] in Central venous bloodOrdered By: Navid Dominguez on 09-06-2024 CO2 [Moles/Vol] 24.9 mmol/L Normal 21.0-32.0 [facility] Comment on above: Performed By: #### M 200.1000, L509.7001, L101.9900, L501.6710 #### [facility] [address] [place], [address] Chloride assayOrdered By: Cameron Dominguez on 09-06-2024 Chloride [Moles/Vol] 106 mmol/L Normal 98-108 [facility] Comment on above: Performed By: #### M 200.1000, L509.7001, L101.9900, L501.6710 #### [facility] [address] [place], [address] Eosinophil percentageOrdered By: Navid Dominguez on 09-06-2024 Eosinophils/100 WBC (Bld) 6.3 % High 0-5 [facility] Comment on above: Performed By: #### L 100.0100, L500.2500, L300.3900 #### [facility] [address] [place], [address] Erythrocyte distribution wid th ratioOrdered By: Navid Dominguez on 09-06-2024 Erythrocyte distribution width (RBC) [Ratio] 17.4 % High 11.6-14.6 [facility] Comment on above: Performed By: #### L 100.0100, L500.2500, L300.3900 #### [facility] [address] [place], [address] Erythrocyte distribution wid th standard deviationOrdered By: Navid Dominguez on 09-06-2024 Erythrocyte distribution width (RBC) [Ratio] 48.2 fl High 35.1-43.9 [facility] Glomerular filtration rate ( GFR) estimation/1.73 sq m using serum, plasma, or whole bOrdered By: Navid Dominguez on 09-06-2024 GFR/1.73 sq M.predicted among non-blacks MDRD (S/P/Bld) [Vol rate/Area] 87 mL/min/{1.73_m2} Normal >60 [facility] Comment on above: mL/min/1.73m2 CKD-EP I Creatinine Equation (2020) Result Comment: mL/m in/1.73m2 CKD-EPI Creatinine Equation (2020) Performed By: #### M 200.1000, L509.7001, L101.9900, L501.6710 #### [facility] [address] [place], [address] Hemoglobin measurementOrdere d By: Navid Dominguez on 09-06-2024 Hemoglobin (Bld) [Mass/Vol] 10.8 g/dL Low 13.0-16.5 [facility] Comment on above: Performed By: #### L 100.0100, L500.2500, L300.3900 #### [facility] [address] [place], [address] Immature granulocytes/100 WB C Auto (Bld)Ordered By: Navid Dominguez on 09-06-2024 Immature granulocytes/100 WBC (Bld) 0.400 % 0.0-0.9 [facility] Comment on above: IG% - Immature Granu locytes (promyelocytes, myelocytes and metamyelocytes) > 1% indicates that a LEFT SHIFT is Present. International normalized rat io (INR) calculationOrdered By: Navid Dominguez on 09-06-2024 INR Coag (Bld) [Relative time] 2.4 {INR} [facility] MCV (mean corpuscular volume ) determinationOrdered By: Navid Dominguez on 09-06-2024 MCV (RBC) [Entitic vol] 76.5 fL Low 80-94 [facility] Comment on above: Performed By: #### L 100.0100, L500.2500, L300.3900 #### [facility] [address] [place], [place], [id number] Mean corpuscular hemoglobin (MCH) determinationOrdered By: Navid Dominguez on 09-06-2024 MCH (RBC) [Entitic mass] 24.6 pg Low 27.0-32.0 [facility] Comment on above: Performed By: #### L 100.0100, L500.2500, L300.3900 #### [facility] [address] [place], [address] Mean corpuscular hemoglobin concentration (MCHC) determinationOrdered By: Navid Dominguez on 09-06-2024 MCHC (RBC) [Mass/Vol] 32.1 g/dL Normal 32-36 [facility] Comment on above: Performed By: #### L 100.0100, L500.2500, L300.3900 #### [facility] [address] [place], [place], [id number] [phone] Mean platelet volume determi nationOrdered By: Navid Dominguez on 09-06-2024 Platelet mean volume (Bld) [Entitic vol] 9.4 fL Normal 6.2-12.0 [facility] Comment on above: Performed By: #### L 100.0100, L500.2500, L300.3900 #### [facility] [address] [place], [address] Monocyte percentageOrdered B y: Navid Dominguez on 09-06-2024 Monocytes/100 WBC (Bld) 9.1 % Normal 0-10 [facility] Comment on above: Performed By: #### L 100.0100, L500.2500, L300.3900 #### [facility] [address] [place], [address] Neutrophil percentageOrdered By: Navid Dominguez on 09-06-2024 Neutrophils/100 WBC (Bld) 66.8 % Normal 47-70 [facility] Comment on above: Performed By: #### L 100.0100, L500.2500, L300.3900 #### [facility] [address] [place], [address] Nucleated red blood cell per centageOrdered By: Navid Dominguez on 09-06-2024 Nucleated RBC/100 WBC (Bld) [Ratio] 0 % 0-5 [facility] Platelet countOrdered By: Cameron Dominguez on 09-06-2024 Platelets (Bld) [#/Vol] 325 10*3/uL Normal 150-450 [facility] Comment on above: Performed By: #### L 100.0100, L500.2500, L300.3900 #### [facility] [address] [place], [address] Potassium measurement (mass/ volume)Ordered By: Navid Dominguez on 09-06-2024 Potassium (Unsp spec) [Mass/Vol] 3.5 mmol/L 3.3-5.1 [facility] Prothrombin Time w/INRon INR Coag (PPP) [Relative time] 2.4 {INR} Normal [facility] Comment on above: Performed By: #### M 200.1000, L509.7001, L101.9900, L501.6710 #### [facility] [address] [place], [address] Prothrombin timeOrdered By: Navid Dominguez on 09-06-2024 PT Coag (PPP) [Time] 27.0 s High 11.7-14.9 [facility] Comment on above: Performed By: #### M 200.1000, L509.7001, L101.9900, L501.6710 #### [facility] [address] [place], [address] Serum creatinine measurement (mass/volume)Ordered By: Navid Dominguez on 09-06-2024 Creatinine [Mass/Vol] 0.73 mg/dL Normal 0.70-1.20 [facility] Comment on above: Performed By: #### M 200.1000, L509.7001, L101.9900, L501.6710 #### [facility] [address] [place], [address] Serum glucose measurement (m ass/volume)Ordered By: Navid Dominguez on 09-06-2024 Glucose [Mass/Vol] 109 mg/dL High 70-99 [facility] Comment on above: Performed By: #### M 200.1000, L509.7001, L101.9900, L501.6710 #### [facility] [address] [place], [address] Serum or plasma calcium alvaro urement (mass/volume)Ordered By: Navid Dominguez on 09-06-2024 Calcium [Mass/Vol] 8.7 mg/dL Normal 7.6-11.0 [facility] Comment on above: Performed By: #### M 200.1000, L509.7001, L101.9900, L501.6710 #### [facility] [address] [place], [address] Serum or plasma urea nitroge n measurement (mass/volume)Ordered By: Navid Dominguez on 09-06-2024 Urea nitrogen [Mass/Vol] 11 mg/dL Normal 4-19 [facility] Comment on above: Performed By: #### M 200.1000, L509.7001, L101.9900, L501.6710 #### [facility] [address] [place], [address] Sodium levelOrdered By: Kamilah Dominguez on 09-06-2024 Sodium [Moles/Vol] 141 mmol/L Normal 133-145 [facility] Comment on above: Performed By: #### M 200.1000, L509.7001, L101.9900, L501.6710 #### [facility] [address] [place], [address] White blood cell (WBC) count Ordered By: Navid Dominguez on 09-06-2024 WBC (Bld) [#/Vol] 7.8 10*3/uL Normal 4.4-11.0 [facility] Comment on above: Performed By: #### L 100.0100, L500.2500, L300.3900 #### [facility] [address] [place], [address] Basic Metabolic Profile (BMP )on 09-05-2024 BUN/CRE 13.4 RATIO Normal 10-20 [facility] Comment on above: Performed By: #### M 200.1000, L509.7001, L101.9900, L501.6710 #### [facility] [address] [place], [address] Calcium [Mass/Vol] 8.6 mg/dL Normal 7.6-11.0 [facility] Comment on above: Performed By: #### M 200.1000, L509.7001, L101.9900, L501.6710 #### [facility] [address] [place], [address] Chloride [Moles/Vol] 105 mmol/L Normal 98-108 [facility] Comment on above: Performed By: #### M 200.1000, L509.7001, L101.9900, L501.6710 #### [facility] [address] [place], [address] CO2 [Moles/Vol] 21.9 mmol/L Normal 21.0-32.0 [facility] Comment on above: Performed By: #### M 200.1000, L509.7001, L101.9900, L501.6710 #### [facility] [address] [place], [address] Creatinine [Mass/Vol] 0.62 mg/dL Low 0.70-1.20 [facility] Comment on above: Performed By: #### M 200.1000, L509.7001, L101.9900, L501.6710 #### [facility] [address] [place], [address] ECRCL 64.10 ml/min Normal 50-250 [facility] Comment on above: Performed By: #### M 200.1000, L509.7001, L101.9900, L501.6710 #### [facility] [address] [place], [address] GAP 12 Normal 5-15 [facility] Comment on above: Performed By: #### M 200.1000, L509.7001, L101.9900, L501.6710 #### [facility] [address] [place], [address] GFR/1.73 sq M.predicted among non-blacks MDRD (S/P/Bld) [Vol rate/Area] 91 mL/min/{1.73_m2} Normal >60 [facility] Comment on above: Result Comment: mL/m in/1.73m2 CKD-EPI Creatinine Equation (2020) Performed By: #### M 200.1000, L509.7001, L101.9900, L501.6710 #### [facility] [address] [place], [address] Glucose [Mass/Vol] 119 mg/dL High 70-99 [facility] Comment on above: Performed By: #### M 200.1000, L509.7001, L101.9900, L501.6710 #### [facility] [address] [place], [address] Potassium [Moles/Vol] 3.3 mmol/L Normal 3.3-5.1 [facility] Comment on above: Performed By: #### M 200.1000, L509.7001, L101.9900, L501.6710 #### [facility] [address] [place], [address] Sodium [Moles/Vol] 139 mmol/L Normal 133-145 [facility] Comment on above: Performed By: #### M 200.1000, L509.7001, L101.9900, L501.6710 #### [facility] [address] [place], [address] Urea nitrogen [Mass/Vol] 8 mg/dL Normal 4-19 [facility] Comment on above: Performed By: #### M 200.1000, L509.7001, L101.9900, L501.6710 #### [facility] [address] [place], [address] Bilirubin Test strip Ql (U)O rdered By: Marta Black on 09-05-2024 Bilirubin Ql (U) Negative Negative [facility] CBC W/Diff, Automatedon 08-21 Absolute Lymph 0.96 X10 3/uL Normal 0.83-4.51 [facility] Comment on above: Performed By: #### M 200.1000, L509.7001, L101.9900, L501.6710 #### [facility] [address] [place], [address] Absolute Neut 7.6 X10 3/uL Normal 2.0-7.7 [facility] Comment on above: Performed By: #### M 200.1000, L509.7001, L101.9900, L501.6710 #### [facility] [address] [place], [address] Basophils/100 WBC (Bld) 0.7 % Normal 0-1 [facility] Comment on above: Performed By: #### M 200.1000, L509.7001, L101.9900, L501.6710 #### [facility] [address] [place], [address] Eosinophils/100 WBC (Bld) 4.0 % Normal 0-5 [facility] Comment on above: Performed By: #### M 200.1000, L509.7001, L101.9900, L501.6710 #### [facility] [address] [place], [address] Erythrocyte distribution width (RBC) [Ratio] 17.6 % High 11.6-14.6 [facility] Comment on above: Performed By: #### M 200.1000, L509.7001, L101.9900, L501.6710 #### [facility] [address] [place], [address] Hematocrit (Bld) [Volume fraction] 35.3 % Low 40-54 [facility] Comment on above: Performed By: #### M 200.1000, L509.7001, L101.9900, L501.6710 #### [facility] [address] [place], [address] Hemoglobin (Bld) [Mass/Vol] 11.3 g/dL Low 13.0-16.5 [facility] Comment on above: Performed By: #### M 200.1000, L509.7001, L101.9900, L501.6710 #### [facility] [address] [place], [address] IG% 0.400 Normal 0.0-0.9 [facility] Comment on above: Result Comment: IG% - Immature Granulocytes (promyelocytes, myelocytes and metamyelocytes) > 1% indicates that a LEFT SHIFT is Present. Performed By: #### M 200.1000, L509.7001, L101.9900, L501.6710 #### [facility] [address] [place], [address] Lymphocytes/100 WBC (Bld) 9.8 % Low 19-41 [facility] Comment on above: Performed By: #### M 200.1000, L509.7001, L101.9900, L501.6710 #### [facility] [address] [place], [address] MCH (RBC) [Entitic mass] 24.4 pg Low 27.0-32.0 [facility] Comment on above: Performed By: #### M 200.1000, L509.7001, L101.9900, L501.6710 #### [facility] [address] [place], [address] MCHC (RBC) [Mass/Vol] 32.0 g/dL Normal 32-36 [facility] Comment on above: Performed By: #### M 200.1000, L509.7001, L101.9900, L501.6710 #### [facility] [address] [place], [address] MCV (RBC) [Entitic vol] 76.2 fL Low 80-94 [facility] Comment on above: Performed By: #### M 200.1000, L509.7001, L101.9900, L501.6710 #### [facility] [address] [place], [address] Monocytes/100 WBC (Bld) 7.9 % Normal 0-10 [facility] Comment on above: Performed By: #### M 200.1000, L509.7001, L101.9900, L501.6710 #### [facility] [address] [place], [address] Neutrophils/100 WBC (Bld) 77.2 % High 47-70 [facility] Comment on above: Performed By: #### M 200.1000, L509.7001, L101.9900, L501.6710 #### [facility] [address] [place], [address] Nucleated RBC (Bld) [#/Vol] 0 10*3/uL Normal 0-5 [facility] Comment on above: Performed By: #### M 200.1000, L509.7001, L101.9900, L501.6710 #### [facility] [address] [place], [address] Platelet mean volume (Bld) [Entitic vol] 9.3 fL Normal 6.2-12.0 [facility] Comment on above: Performed By: #### M 200.1000, L509.7001, L101.9900, L501.6710 #### [facility] [address] [place], [address] Platelets (Bld) [#/Vol] 329 10*3/uL Normal 150-450 [facility] Comment on above: Performed By: #### M 200.1000, L509.7001, L101.9900, L501.6710 #### [facility] [address] [place], [address] RBC (Bld) [#/Vol] 4.63 10*6/uL Normal 4.6-6.2 [facility] Comment on above: Performed By: #### M 200.1000, L509.7001, L101.9900, L501.6710 #### [facility] [address] [place], [address] RDW SD 47.9 fl High 35.1-43.9 [facility] Comment on above: Performed By: #### M 200.1000, L509.7001, L101.9900, L501.6710 #### [facility] [address] [place], [address] WBC (Bld) [#/Vol] 9.8 10*3/uL Normal 4.4-11.0 [facility] Comment on above: Performed By: #### M 200.1000, L509.7001, L101.9900, L501.6710 #### [facility] [address] [place], [address] Ketones Test strip Ql (U)Ord ered By: Marta Black on 09-05-2024 Ketones Ql (U) Negative Negative [facility] Microscopic analysis of urin e for red blood cells (RBC)Ordered By: Marta Black on 09-05-2024 Microscopic analysis of urine for red blood cells (RBC) 0-5 SEEN /hpf 0-5 [facility] Mucus LM Ql (Urine sed)Order ed By: Marta Black on 09-05-2024 Mucus Ql (Urine sed) 0 SEEN /hpf [facility] Nitrite Test strip Ql (U)Ord ered By: Marta Black on 09-05-2024 Nitrite Ql (U) Negative Negative [facility] Protein Test strip Ql (U)Ord ered By: Marta Black on 09-05-2024 Protein Ql (U) 15 mg/dl High Negative [facility] Prothrombin Time w/INRon INR Coag (PPP) [Relative time] 2.2 {INR} Normal [facility] Comment on above: Performed By: #### M 200.1000, L509.7001, L101.9900, L501.6710 #### [facility] [address] [place], [address] PT Coag (PPP) [Time] 24.7 s High 11.7-14.9 [facility] Comment on above: Performed By: #### M 200.1000, L509.7001, L101.9900, L501.6710 #### [facility] [address] [place], [address] Squamous epithelial cells de tection in urine sediment by light microscopyOrdered By: Marta Black on 09-05-2024 Epithelial cells.squamous LM Ql (Urine sed) 0 SEEN /hpf 0-5 [facility] Urinalysis, Completeon 09-05 BACTERIA RARE Normal None Seen [facility] Comment on above: Order Comment: CLEAN CATCH Performed By: #### M 200.1000, L509.7001, L101.9900, L501.6710 #### [facility] [address] [place], [address] RBC 0-5 SEEN Normal 0-5 [facility] Comment on above: Order Comment: CLEAN CATCH Performed By: #### M 200.1000, L509.7001, L101.9900, L501.6710 #### [facility] [address] [place], [address] WBC 0-5 SEEN Normal 0-5 [facility] Comment on above: Order Comment: CLEAN CATCH Performed By: #### M 200.1000, L509.7001, L101.9900, L501.6710 #### [facility] [address] [place], [address] BILIRUBIN URINE Negative Normal Negative [facility] Comment on above: Order Comment: CLEAN CATCH Performed By: #### M 200.1000, L509.7001, L101.9900, L501.6710 #### [facility] [address] [place], [address] Clarity (U) Clear Normal Clear [facility] Comment on above: Order Comment: CLEAN CATCH Performed By: #### M 200.1000, L509.7001, L101.9900, L501.6710 #### [facility] [address] [place], [address] Color (U) Straw Normal Yellow [facility] Comment on above: Order Comment: CLEAN CATCH Performed By: #### M 200.1000, L509.7001, L101.9900, L501.6710 #### [facility] [address] [place], [address] GLUCOSE, UR Normal Normal Normal [facility] Comment on above: Order Comment: CLEAN CATCH Performed By: #### M 200.1000, L509.7001, L101.9900, L501.6710 #### [facility] [address] [place], [address] KETONE UR Negative Normal Negative [facility] Comment on above: Order Comment: CLEAN CATCH Performed By: #### M 200.1000, L509.7001, L101.9900, L501.6710 #### [facility] [address] [place], [address] LEUK ESTERASE Negative Normal Negative [facility] Comment on above: Order Comment: CLEAN CATCH Performed By: #### M 200.1000, L509.7001, L101.9900, L501.6710 #### [facility] [address] [place], [address] Nitrite Ql (U) Negative Normal Negative [facility] Comment on above: Order Comment: CLEAN CATCH Performed By: #### M 200.1000, L509.7001, L101.9900, L501.6710 #### [facility] [address] [place], [address] OCCULT BLOOD-UR 25 /ul Abnormal Negative [facility] Comment on above: Order Comment: CLEAN CATCH Performed By: #### M 200.1000, L509.7001, L101.9900, L501.6710 #### [facility] [address] [place], [address] pH UR 7.0 Normal 5.0 - 8.0 [facility] Comment on above: Order Comment: CLEAN CATCH Performed By: #### M 200.1000, L509.7001, L101.9900, L501.6710 #### [facility] [address] [place], [address] PROT DIPSTX 15 mg/dl Abnormal Negative [facility] Comment on above: Order Comment: CLEAN CATCH Performed By: #### M 200.1000, L509.7001, L101.9900, L501.6710 #### [facility] [address] [place], [address] SP.GR. DIPSTX 1.005 Normal 1.002-1.03 0 [facility] Comment on above: Order Comment: CLEAN CATCH Performed By: #### M 200.1000, L509.7001, L101.9900, L501.6710 #### [facility] [address] [place], [address] UROBILI Normal Normal Normal [facility] Comment on above: Order Comment: CLEAN CATCH Performed By: #### M 200.1000, L509.7001, L101.9900, L501.6710 #### [facility] [address] [place], [address] EPI,SQUAMOUS 0 SEEN Normal 0-5 [facility] Comment on above: Order Comment: CLEAN CATCH Performed By: #### M 200.1000, L509.7001, L101.9900, L501.6710 #### [facility] [address] [place], [address] Mucus Ql (Urine sed) [address] [facility] Comment on above: Order Comment: CLEAN CATCH Performed By: #### M 200.1000, L509.7001, L101.9900, L501.6710 #### [facility] [address] [place], [address] Urine clarityOrdered By: Magnolia Black on 09-05-2024 Clarity (U) Clear Clear [facility] Urine color determinationOrd ered By: Marta Black on 09-05-2024 Color (U) Straw Yellow [facility] Urine glucose detectionOrder ed By: Marta Black on 09-05-2024 Glucose Ql (U) Normal mg/dl Normal [facility] Urine leukocyte esterase det ection by dipstickOrdered By: Marta Black on 09-05-2024 Leukocyte esterase Test strip Ql (U) Negative Negative [facility] Urine pHOrdered By: Marta Black on 09-05-2024 pH (U) 7.0 [pH] 5.0 - 8.0 [facility] Urine sediment bacteria coun t by microscopy (number/high power field)Ordered By: Marta Black on 09-05-2024 Bacteria LM.HPF (Urine sed) [#/Area] RARE /hpf None Seen [facility] Urine specific gravity measu rementOrdered By: Marta Black on 09-05-2024 Specific gravity (U) [Rel density] 1.005 1.002-1.03 0 [facility] Urine urobilinogen measureme ntOrdered By: Marta Black on 09-05-2024 Urobilinogen Ql (U) Normal mg/dl Normal [facility] White blood cell countOrdere d By: Marta Black on 09-05-2024 White blood cell count 0-5 SEEN /hpf 0-5 [facility] Basic Metabolic Profile (BMP )on 09-04-2024 BUN/CRE 17.3 RATIO Normal 10-20 [facility] Comment on above: Performed By: #### M 200.1000, L509.7001, L101.9900, L501.6710 #### [facility] [address] [place], [address] Calcium [Mass/Vol] 8.2 mg/dL Normal 7.6-11.0 [facility] Comment on above: Performed By: #### M 200.1000, L509.7001, L101.9900, L501.6710 #### [facility] [address] [place], [address] Chloride [Moles/Vol] 107 mmol/L Normal 98-108 [facility] Comment on above: Performed By: #### M 200.1000, L509.7001, L101.9900, L501.6710 #### [facility] [address] [place], [address] CO2 [Moles/Vol] 20.9 mmol/L Low 21.0-32.0 [facility] Comment on above: Performed By: #### M 200.1000, L509.7001, L101.9900, L501.6710 #### [facility] [address] [place], [address] Creatinine [Mass/Vol] 0.72 mg/dL Normal 0.70-1.20 [facility] Comment on above: Performed By: #### M 200.1000, L509.7001, L101.9900, L501.6710 #### [facility] [address] [place], [address] ECRCL 64.10 ml/min Normal 50-250 [facility] Comment on above: Performed By: #### M 200.1000, L509.7001, L101.9900, L501.6710 #### [facility] [address] [place], [address] GAP 11 Normal 5-15 [facility] Comment on above: Performed By: #### M 200.1000, L509.7001, L101.9900, L501.6710 #### [facility] [address] [place], [address] GFR/1.73 sq M.predicted among non-blacks MDRD (S/P/Bld) [Vol rate/Area] 87 mL/min/{1.73_m2} Normal >60 [facility] Comment on above: Result Comment: mL/m in/1.73m2 CKD-EPI Creatinine Equation (2020) Performed By: #### M 200.1000, L509.7001, L101.9900, L501.6710 #### [facility] [address] [place], [address] Glucose [Mass/Vol] 120 mg/dL High 70-99 [facility] Comment on above: Performed By: #### M 200.1000, L509.7001, L101.9900, L501.6710 #### [facility] [address] [place], [address] Potassium [Moles/Vol] 3.5 mmol/L Normal 3.3-5.1 [facility] Comment on above: Performed By: #### M 200.1000, L509.7001, L101.9900, L501.6710 #### [facility] [address] [place], [address] Sodium [Moles/Vol] 139 mmol/L Normal 133-145 [facility] Comment on above: Performed By: #### M 200.1000, L509.7001, L101.9900, L501.6710 #### [facility] [address] [place], [address] Urea nitrogen [Mass/Vol] 12 mg/dL Normal 4-19 [facility] Comment on above: Performed By: #### M 200.1000, L509.7001, L101.9900, L501.6710 #### [facility] [address] [place], [address] CBC W/Diff, Automatedon 08-21 Absolute Lymph 0.89 X10 3/uL Normal 0.83-4.51 [facility] Comment on above: Performed By: #### M 200.1000, L509.7001, L101.9900, L501.6710 #### [facility] [address] [place], [address] Absolute Neut 8.9 X10 3/uL High 2.0-7.7 [facility] Comment on above: Performed By: #### M 200.1000, L509.7001, L101.9900, L501.6710 #### [facility] [address] [place], [address] Basophils/100 WBC (Bld) 0.8 % Normal 0-1 [facility] Comment on above: Performed By: #### M 200.1000, L509.7001, L101.9900, L501.6710 #### [facility] [address] [place], [address] Eosinophils/100 WBC (Bld) 5.3 % High 0-5 [facility] Comment on above: Performed By: #### M 200.1000, L509.7001, L101.9900, L501.6710 #### [facility] [address] [place], [address] Erythrocyte distribution width (RBC) [Ratio] 17.5 % High 11.6-14.6 [facility] Comment on above: Performed By: #### M 200.1000, L509.7001, L101.9900, L501.6710 #### [facility] [address] [place], [address] Hematocrit (Bld) [Volume fraction] 33.3 % Low 40-54 [facility] Comment on above: Performed By: #### M 200.1000, L509.7001, L101.9900, L501.6710 #### [facility] [address] [place], [address] Hemoglobin (Bld) [Mass/Vol] 10.7 g/dL Low 13.0-16.5 [facility] Comment on above: Performed By: #### M 200.1000, L509.7001, L101.9900, L501.6710 #### [facility] [address] [place], [address] IG% 0.400 Normal 0.0-0.9 [facility] Comment on above: Result Comment: IG% - Immature Granulocytes (promyelocytes, myelocytes and metamyelocytes) > 1% indicates that a LEFT SHIFT is Present. Performed By: #### M 200.1000, L509.7001, L101.9900, L501.6710 #### [facility] [address] [place], [address] Lymphocytes/100 WBC (Bld) 7.8 % Low 19-41 [facility] Comment on above: Performed By: #### M 200.1000, L509.7001, L101.9900, L501.6710 #### [facility] [address] [place], [address] MCH (RBC) [Entitic mass] 24.6 pg Low 27.0-32.0 [facility] Comment on above: Performed By: #### M 200.1000, L509.7001, L101.9900, L501.6710 #### [facility] [address] [place], [address] MCHC (RBC) [Mass/Vol] 32.1 g/dL Normal 32-36 [facility] Comment on above: Performed By: #### M 200.1000, L509.7001, L101.9900, L501.6710 #### [facility] [address] [place], [address] MCV (RBC) [Entitic vol] 76.6 fL Low 80-94 [facility] Comment on above: Performed By: #### M 200.1000, L509.7001, L101.9900, L501.6710 #### [facility] [address] [place], [address] Monocytes/100 WBC (Bld) 7.7 % Normal 0-10 [facility] Comment on above: Performed By: #### M 200.1000, L509.7001, L101.9900, L501.6710 #### [facility] [address] [place], [address] Neutrophils/100 WBC (Bld) 78.0 % High 47-70 [facility] Comment on above: Performed By: #### M 200.1000, L509.7001, L101.9900, L501.6710 #### [facility] [address] [place], [address] Nucleated RBC (Bld) [#/Vol] 0 10*3/uL Normal 0-5 [facility] Comment on above: Performed By: #### M 200.1000, L509.7001, L101.9900, L501.6710 #### [facility] [address] [place], [address] Platelet mean volume (Bld) [Entitic vol] 10.6 fL Normal 6.2-12.0 [facility] Comment on above: Performed By: #### M 200.1000, L509.7001, L101.9900, L501.6710 #### [facility] [address] [place], [address] Platelets (Bld) [#/Vol] 305 10*3/uL Normal 150-450 [facility] Comment on above: Performed By: #### M 200.1000, L509.7001, L101.9900, L501.6710 #### [facility] [address] [place], [address] RBC (Bld) [#/Vol] 4.35 10*6/uL Low 4.6-6.2 [facility] Comment on above: Performed By: #### M 200.1000, L509.7001, L101.9900, L501.6710 #### [facility] [address] [place], [address] RDW SD 48.3 fl High 35.1-43.9 [facility] Comment on above: Performed By: #### M 200.1000, L509.7001, L101.9900, L501.6710 #### [facility] [address] [place], [address] WBC (Bld) [#/Vol] 11.4 10*3/uL High 4.4-11.0 [facility] Comment on above: Performed By: #### M 200.1000, L509.7001, L101.9900, L501.6710 #### [facility] [address] [place], [address] Prothrombin Time w/INRon INR Coag (PPP) [Relative time] 1.9 {INR} Normal [facility] Comment on above: Performed By: #### L 300.3900 #### [facility] [address] [place], [address] PT Coag (PPP) [Time] 21.8 s High 11.7-14.9 [facility] Comment on above: Performed By: #### L 300.3900 #### [facility] [address] [place], [address] Basic Metabolic Profile (BMP )on 09-03-2024 BUN/CRE 13.3 RATIO Normal 10-20 [facility] Comment on above: Performed By: #### M 200.1000, L509.7001, L101.9900, L501.6710 #### [facility] [address] [place], [address] Calcium [Mass/Vol] 8.5 mg/dL Normal 7.6-11.0 [facility] Comment on above: Performed By: #### M 200.1000, L509.7001, L101.9900, L501.6710 #### [facility] [address] [place], [address] Chloride [Moles/Vol] 104 mmol/L Normal 98-108 [facility] Comment on above: Performed By: #### M 200.1000, L509.7001, L101.9900, L501.6710 #### [facility] [address] [place], [address] CO2 [Moles/Vol] 19.1 mmol/L Low 21.0-32.0 [facility] Comment on above: Performed By: #### M 200.1000, L509.7001, L101.9900, L501.6710 #### [facility] [address] [place], [address] Creatinine [Mass/Vol] 0.74 mg/dL Normal 0.70-1.20 [facility] Comment on above: Performed By: #### M 200.1000, L509.7001, L101.9900, L501.6710 #### [facility] [address] [place], [address] ECRCL 64.10 ml/min Normal 50-250 [facility] Comment on above: Performed By: #### M 200.1000, L509.7001, L101.9900, L501.6710 #### [facility] [address] [place], [address] GAP 13 Normal 5-15 [facility] Comment on above: Performed By: #### M 200.1000, L509.7001, L101.9900, L501.6710 #### [facility] [address] [place], [address] GFR/1.73 sq M.predicted among non-blacks MDRD (S/P/Bld) [Vol rate/Area] 87 mL/min/{1.73_m2} Normal >60 [facility] Comment on above: Result Comment: mL/m in/1.73m2 CKD-EPI Creatinine Equation (2020) Performed By: #### M 200.1000, L509.7001, L101.9900, L501.6710 #### [facility] [address] [place], [address] Glucose [Mass/Vol] 111 mg/dL High 70-99 [facility] Comment on above: Performed By: #### M 200.1000, L509.7001, L101.9900, L501.6710 #### [facility] [address] [place], [address] Potassium [Moles/Vol] 3.5 mmol/L Normal 3.3-5.1 [facility] Comment on above: Performed By: #### M 200.1000, L509.7001, L101.9900, L501.6710 #### [facility] [address] [place], [address] Sodium [Moles/Vol] 137 mmol/L Normal 133-145 [facility] Comment on above: Performed By: #### M 200.1000, L509.7001, L101.9900, L501.6710 #### [facility] [address] [place], [address] Urea nitrogen [Mass/Vol] 10 mg/dL Normal 4-19 [facility] Comment on above: Performed By: #### M 200.1000, L509.7001, L101.9900, L501.6710 #### [facility] [address] [place], [address] CBC W/Diff, Automatedon - Absolute Lymph 0.82 X10 3/uL Low 0.83-4.51 [facility] Comment on above: Performed By: #### M 200.1000, L509.7001, L101.9900, L501.6710 #### [facility] [address] [place], [address] Absolute Neut 10.2 X10 3/uL High 2.0-7.7 [facility] Comment on above: Performed By: #### M 200.1000, L509.7001, L101.9900, L501.6710 #### [facility] [address] [place], [address] Basophils/100 WBC (Bld) 0.7 % Normal 0-1 [facility] Comment on above: Performed By: #### M 200.1000, L509.7001, L101.9900, L501.6710 #### [facility] [address] [place], [address] Eosinophils/100 WBC (Bld) 2.8 % Normal 0-5 [facility] Comment on above: Performed By: #### M 200.1000, L509.7001, L101.9900, L501.6710 #### [facility] [address] [place], [address] Erythrocyte distribution width (RBC) [Ratio] 17.5 % High 11.6-14.6 [facility] Comment on above: Performed By: #### M 200.1000, L509.7001, L101.9900, L501.6710 #### [facility] [address] [place], [address] Hematocrit (Bld) [Volume fraction] 35.6 % Low 40-54 [facility] Comment on above: Performed By: #### M 200.1000, L509.7001, L101.9900, L501.6710 #### [facility] [address] [place], [address] Hemoglobin (Bld) [Mass/Vol] 11.3 g/dL Low 13.0-16.5 [facility] Comment on above: Performed By: #### M 200.1000, L509.7001, L101.9900, L501.6710 #### [facility] [address] [place], [address] IG% 0.400 Normal 0.0-0.9 [facility] Comment on above: Result Comment: IG% - Immature Granulocytes (promyelocytes, myelocytes and metamyelocytes) > 1% indicates that a LEFT SHIFT is Present. Performed By: #### M 200.1000, L509.7001, L101.9900, L501.6710 #### [facility] [address] [place], [address] Lymphocytes/100 WBC (Bld) 6.7 % Low 19-41 [facility] Comment on above: Performed By: #### M 200.1000, L509.7001, L101.9900, L5.6710 #### [facility] [address] [place], [address] MCH (RBC) [Entitic mass] 24.7 pg Low 27.0-32.0 [facility] Comment on above: Performed By: #### M 200.1000, L509.7001, L101.9900, L501.6710 #### [facility] [address] [place], [address] MCHC (RBC) [Mass/Vol] 31.7 g/dL Low 32-36 [facility] Comment on above: Performed By: #### M 200.1000, L509.7001, L101.9900, L501.6710 #### [facility] [address] [place], [address] MCV (RBC) [Entitic vol] 77.7 fL Low 80-94 [facility] Comment on above: Performed By: #### M 200.1000, L509.7001, L101.9900, L501.6710 #### [facility] [address] [place], [address] Monocytes/100 WBC (Bld) 6.0 % Normal 0-10 [facility] Comment on above: Performed By: #### M 200.1000, L509.7001, L101.9900, L501.6710 #### [facility] [address] [place], [address] Neutrophils/100 WBC (Bld) 83.4 % High 47-70 [facility] Comment on above: Performed By: #### M 200.1000, L509.7001, L101.9900, L501.6710 #### [facility] [address] [place], [address] Nucleated RBC (Bld) [#/Vol] 0 10*3/uL Normal 0-5 [facility] Comment on above: Performed By: #### M 200.1000, L509.7001, L101.9900, L501.6710 #### [facility] [address] [place], [address] Platelet mean volume (Bld) [Entitic vol] 9.9 fL Normal 6.2-12.0 [facility] Comment on above: Performed By: #### M 200.1000, L509.7001, L101.9900, L501.6710 #### [facility] [address] [place], [address] Platelets (Bld) [#/Vol] 252 10*3/uL Normal 150-450 [facility] Comment on above: Performed By: #### M 200.1000, L509.7001, L101.9900, L501.6710 #### [facility] [address] [place], [address] RBC (Bld) [#/Vol] 4.58 10*6/uL Low 4.6-6.2 [facility] Comment on above: Performed By: #### M 200.1000, L509.7001, L101.9900, L501.6710 #### [facility] [address] [place], [address] RDW SD 48.2 fl High 35.1-43.9 [facility] Comment on above: Performed By: #### M 200.1000, L509.7001, L101.9900, L501.6710 #### [facility] [address] [place], [address] WBC (Bld) [#/Vol] 12.3 10*3/uL High 4.4-11.0 [facility] Comment on above: Performed By: #### M 200.1000, L509.7001, L101.9900, L501.6710 #### [facility] [address] [place], [address] Prothrombin Time w/INRon INR Coag (PPP) [Relative time] 1.8 {INR} Normal [facility] Comment on above: Performed By: #### L 300.3900 #### [facility] [address] [place], [address] PT Coag (PPP) [Time] 20.9 s High 11.7-14.9 [facility] Comment on above: Performed By: #### L 300.3900 #### [facility] [address] [place], [address] Trough vancomycin levelOrder ed By: Marta Black on 09-03-2024 Vancomycin trough [Mass/Vol] 8.2 ug/mL 5.0-15.0 [facility] Comment on above: Recommended goal tro ugh ranges are generally 10-15 mcg/ml for less severe/complicated infections such as cellulitis or UTI and 15-20 mcg/ml for more severe/complicated infections such as bacteremia/sepsis, osteomyelitis, pneumonia or meningitis. Goal trough ranges should take into account indication, patient-specific factors and organism LAILA.VANCOMYCIN STANDARED DRUG THERAPY TROUGH LEVEL: 5.0 - 15.0 mg/L VANCOMYCIN HIGH INTENSITY THERAPY TROUGH LEVEL: 15.0 - 20.0 mg/L High Intensity therapy recommended for serious lifethreatening infections include:- Jsafbshfob-Yquiqhbvkztf-Fmfylocpq (Ventilator/Healtcare Associated)-Sepsis PLEASE CONTACT PHARMACY SERVICES (#[id number]) FOR INTERPRETATIONOF RESULTS. Vancomycin, Trough Levelon 0 09-03-2024 VANCO, TROUGH 8.2 ug/mL Normal 5.0-15.0 [facility] Comment on above: Order Comment: Comme nts: Trough to be drawn 30 mins prior to scheduled [id number] Result Comment: Ilya mmended goal trough ranges are generally 10-15 mcg/ml for less severe/complicated infections such as cellulitis or UTI and 15-20 mcg/ml for more severe/complicated infections such as bacteremia/sepsis, osteomyelitis, pneumonia or meningitis. Goal trough ranges should take into account indication, patient-specific factors and organism LAILA. VANCOMYCIN STANDARED DRUG THERAPY TROUGH LEVEL: 5.0 - 15.0 mg/L VANCOMYCIN HIGH INTENSITY THERAPY TROUGH LEVEL: 15.0 - 20.0 mg/L High Intensity therapy recommended for serious life threatening infections include: - Meningitis -Endocarditis -Pneumonia (Ventilator/Healtcare Associated) -Sepsis PLEASE CONTACT PHARMACY SERVICES (#[id number]) FOR INTERPRETATION OF RESULTS. Performed By: #### M 200.1000, L509.7001, L101.9900, L501.6710 #### [facility] [address] [place], [address] Basic Metabolic Profile (BMP )on 09-02-2024 BUN/CRE 18.9 RATIO Normal 10-20 [facility] Comment on above: Performed By: #### M 200.1000, L509.7001, L101.9900, L501.6710 #### [facility] [address] [place], [address] Calcium [Mass/Vol] 8.5 mg/dL Normal 7.6-11.0 [facility] Comment on above: Performed By: #### M 200.1000, L509.7001, L101.9900, L501.6710 #### [facility] [address] [place], [address] Chloride [Moles/Vol] 105 mmol/L Normal 98-108 [facility] Comment on above: Performed By: #### M 200.1000, L509.7001, L101.9900, L501.6710 #### [facility] [address] [place], [address] CO2 [Moles/Vol] 14.2 mmol/L Low 21.0-32.0 [facility] Comment on above: Performed By: #### M 200.1000, L509.7001, L101.9900, L501.6710 #### [facility] [address] [place], [address] Creatinine [Mass/Vol] 0.75 mg/dL Normal 0.70-1.20 [facility] Comment on above: Performed By: #### M 200.1000, L509.7001, L101.9900, L501.6710 #### [facility] [address] [place], [address] ECRCL 64.10 ml/min Normal 50-250 [facility] Comment on above: Performed By: #### M 200.1000, L509.7001, L101.9900, L501.6710 #### [facility] [address] [place], [address] GAP 15 Normal 5-15 [facility] Comment on above: Performed By: #### M 200.1000, L509.7001, L101.9900, L501.6710 #### [facility] [address] [place], [address] GFR/1.73 sq M.predicted among non-blacks MDRD (S/P/Bld) [Vol rate/Area] 86 mL/min/{1.73_m2} Normal >60 [facility] Comment on above: Result Comment: mL/m in/1.73m2 CKD-EPI Creatinine Equation (2020) Performed By: #### M 200.1000, L509.7001, L101.9900, L501.6710 #### [facility] [address] [place], [address] Glucose [Mass/Vol] 105 mg/dL High 70-99 [facility] Comment on above: Performed By: #### M 200.1000, L509.7001, L101.9900, L501.6710 #### [facility] [address] [place], [address] Potassium [Moles/Vol] 4.3 mmol/L Normal 3.3-5.1 [facility] Comment on above: Result Comment: Hemo lysis present, Results??could be affected. ?? Performed By: #### M 200.1000, L509.7001, L101.9900, L501.6710 #### [facility] [address] [place], [address] Sodium [Moles/Vol] 135 mmol/L Normal 133-145 [facility] Comment on above: Performed By: #### M 200.1000, L509.7001, L101.9900, L501.6710 #### [facility] [address] [place], [address] Urea nitrogen [Mass/Vol] 14 mg/dL Normal 4-19 [facility] Comment on above: Performed By: #### M 200.1000, L509.7001, L101.9900, L501.6710 #### [facility] [address] [place], [address] CBC W/Diff, Automatedon 06-03 25-2024 Absolute Lymph 0.52 X10 3/uL Low 0.83-4.51 [facility] Comment on above: Performed By: #### M 200.1000, L509.7001, L101.9900, L501.6710 #### [facility] [address] [place], [address] Absolute Neut 12.1 X10 3/uL High 2.0-7.7 [facility] Comment on above: Performed By: #### M 200.1000, L509.7001, L101.9900, L501.6710 #### [facility] [address] [place], [address] Basophils/100 WBC (Bld) 0.6 % Normal 0-1 [facility] Comment on above: Performed By: #### M 200.1000, L509.7001, L101.9900, L501.6710 #### [facility] [address] [place], [address] Eosinophils/100 WBC (Bld) 2.2 % Normal 0-5 [facility] Comment on above: Performed By: #### M 200.1000, L509.7001, L101.9900, L501.6710 #### [facility] [address] [place], [address] Erythrocyte distribution width (RBC) [Ratio] 17.8 % High 11.6-14.6 [facility] Comment on above: Performed By: #### M 200.1000, L509.7001, L101.9900, L501.6710 #### [facility] [address] [place], [address] Hematocrit (Bld) [Volume fraction] 39.9 % Low 40-54 [facility] Comment on above: Performed By: #### M 200.1000, L509.7001, L101.9900, L501.6710 #### [facility] [address] [place], [address] Hemoglobin (Bld) [Mass/Vol] 11.9 g/dL Low 13.0-16.5 [facility] Comment on above: Performed By: #### M 200.1000, L509.7001, L101.9900, L501.6710 #### [facility] [address] [place], [address] IG% 0.700 Normal 0.0-0.9 [facility] Comment on above: Result Comment: IG% - Immature Granulocytes (promyelocytes, myelocytes and metamyelocytes) > 1% indicates that a LEFT SHIFT is Present. Performed By: #### M 200.1000, L509.7001, L101.9900, L501.6710 #### [facility] [address] [place], [address] Lymphocytes/100 WBC (Bld) 3.8 % Low 19-41 [facility] Comment on above: Performed By: #### M 200.1000, L509.7001, L101.9900, L501.6710 #### [facility] [address] [place], [address] MCH (RBC) [Entitic mass] 24.5 pg Low 27.0-32.0 [facility] Comment on above: Performed By: #### M 200.1000, L509.7001, L101.9900, L501.6710 #### [facility] [address] [place], [address] MCHC (RBC) [Mass/Vol] 29.8 g/dL Low 32-36 [facility] Comment on above: Performed By: #### M 200.1000, L509.7001, L101.9900, L501.6710 #### [facility] [address] [place], [address] MCV (RBC) [Entitic vol] 82.3 fL Normal 80-94 [facility] Comment on above: Performed By: #### M 200.1000, L509.7001, L101.9900, L501.6710 #### [facility] [address] [place], [address] Monocytes/100 WBC (Bld) 4.8 % Normal 0-10 [facility] Comment on above: Performed By: #### M 200.1000, L509.7001, L101.9900, L501.6710 #### [facility] [address] [place], [address] Neutrophils/100 WBC (Bld) 87.9 % High 47-70 [facility] Comment on above: Performed By: #### M 200.1000, L509.7001, L101.9900, L501.6710 #### [facility] [address] [place], [address] Nucleated RBC (Bld) [#/Vol] 0 10*3/uL Normal 0-5 [facility] Comment on above: Performed By: #### M 200.1000, L509.7001, L101.9900, L501.6710 #### [facility] [address] [place], [address] Platelet mean volume (Bld) [Entitic vol] 10.6 fL Normal 6.2-12.0 [facility] Comment on above: Performed By: #### M 200.1000, L509.7001, L101.9900, L501.6710 #### [facility] [address] [place], [address] Platelets (Bld) [#/Vol] 227 10*3/uL Normal 150-450 [facility] Comment on above: Performed By: #### M 200.1000, L509.7001, L101.9900, L501.6710 #### [facility] [address] [place], [address] RBC (Bld) [#/Vol] 4.85 10*6/uL Normal 4.6-6.2 [facility] Comment on above: Performed By: #### M 200.1000, L509.7001, L101.9900, L501.6710 #### [facility] [address] [place], [address] RDW SD 52.3 fl High 35.1-43.9 [facility] Comment on above: Performed By: #### M 200.1000, L509.7001, L101.9900, L501.6710 #### [facility] [address] [place], [address] WBC (Bld) [#/Vol] 13.8 10*3/uL High 4.4-11.0 [facility] Comment on above: Performed By: #### M 200.1000, L509.7001, L101.9900, L501.6710 #### [facility] [address] [place], [address] Prothrombin Time w/INRon INR Coag (PPP) [Relative time] 1.9 {INR} Normal [facility] Comment on above: Performed By: #### M 200.1000, L509.7001, L101.9900, L501.6710 #### [facility] [address] [place], [address] PT Coag (PPP) [Time] 22.1 s High 11.7-14.9 [facility] Comment on above: Performed By: #### M 200.1000, L509.7001, L101.9900, L501.6710 #### [facility] [address] [place], [address] RESPIRATORY PANEL MOLECULARo n 09-02-2024 RP PANEL ADENOVIRUS Not Detected INFLUENZA A Not Detected INFLUENZA A (SUBTYPE H1) Not Detected INFLUENZA A (SUBTYPE H3) Not Detected INFLUENZA B Not Detected HUMAN METAPHNEUMO Not Detected PARAINFLUENZA 1 Not Detected PARAINFLUENZA 2 Not Detected PARAINFLUENZA 3 Not Detected PARAINFLUENZA 4 Not Detected RHINOVIRUS Not Detected RSV A Not Detected RSV B Not Detected Normal [facility] Comment on above: Performed By: #### M 200.1000, L509.7001, L101.9900, L501.6710 #### [facility] [address] [place], [address] Absolute lymphocyte countOrd ered By: Inderjit Gillespie on 09-01-2024 Lymphocytes Auto (Unsp spec) [#/Vol] 0.62 10*3/uL Low 0.83-4.51 [facility] Absolute neutrophil countOrd ered By: Inderjit Gillespie on 09-01-2024 Neutrophils (Bld) [#/Vol] 11.3 10*3/uL High 2.0-7.7 [facility] Anion gap in Serum or Plasma Ordered By: Inderjit Gillespie on 09-01-2024 Anion gap [Moles/Vol] 10 mmol/L 5-15 [facility] Automated lymphocyte count a s percentage of total leukocytesOrdered By: Inderjit Gillespie on 09-01-2024 Lymphocytes/100 WBC Auto (Unsp spec) 4.8 % Low 19-41 [facility] BUN/creatinine ratioOrdered By: Inderjit Gillespie on 09-01-2024 Urea nitrogen/Creatinine [Mass ratio] 21.6 mg/mg High 10-20 [facility] Basic Metabolic Profile (BMP )on 09-01-2024 BUN/CRE 21.6 RATIO High 10-20 [facility] Comment on above: Performed By: #### M 200.1000, L509.7001, L101.9900, L501.6710 #### [facility] [address] [place], [address] Calcium [Mass/Vol] 8.8 mg/dL Normal 7.6-11.0 [facility] Comment on above: Performed By: #### M 200.1000, L509.7001, L101.9900, L501.6710 #### [facility] [address] [place], [address] Chloride [Moles/Vol] 105 mmol/L Normal 98-108 [facility] Comment on above: Performed By: #### M 200.1000, L509.7001, L101.9900, L501.6710 #### [facility] [address] [place], [address] CO2 [Moles/Vol] 24.3 mmol/L Normal 21.0-32.0 [facility] Comment on above: Performed By: #### M 200.1000, L509.7001, L101.9900, L501.6710 #### [facility] [address] [place], [address] Creatinine [Mass/Vol] 0.77 mg/dL Normal 0.70-1.20 [facility] Comment on above: Performed By: #### M 200.1000, L509.7001, L101.9900, L501.6710 #### [facility] [address] [place], [address] ECRCL 68.71 ml/min Normal 50-250 [facility] Comment on above: Performed By: #### M 200.1000, L509.7001, L101.9900, L501.6710 #### [facility] [address] [place], [address] GAP 10 Normal 5-15 [facility] Comment on above: Performed By: #### M 200.1000, L509.7001, L101.9900, L501.6710 #### [facility] [address] [place], [address] GFR/1.73 sq M.predicted among non-blacks MDRD (S/P/Bld) [Vol rate/Area] 86 mL/min/{1.73_m2} Normal >60 [facility] Comment on above: Result Comment: mL/m in/1.73m2 CKD-EPI Creatinine Equation (2020) Performed By: #### M 200.1000, L509.7001, L101.9900, L501.6710 #### [facility] [address] [place], [address] Glucose [Mass/Vol] 112 mg/dL High 70-99 [facility] Comment on above: Performed By: #### M 200.1000, L509.7001, L101.9900, L501.6710 #### [facility] [address] [place], [address] Potassium [Moles/Vol] 3.7 mmol/L Normal 3.3-5.1 [facility] Comment on above: Performed By: #### M 200.1000, L509.7001, L101.9900, L501.6710 #### [facility] [address] [place], [address] Sodium [Moles/Vol] 139 mmol/L Normal 133-145 [facility] Comment on above: Performed By: #### M 200.1000, L509.7001, L101.9900, L501.6710 #### [facility] [address] [place], [address] Urea nitrogen [Mass/Vol] 17 mg/dL Normal 4-19 [facility] Comment on above: Performed By: #### M 200.1000, L509.7001, L101.9900, L501.6710 #### [facility] [address] [place], [address] Basophil percentageOrdered B y: Inderjit Gillespie on 09-01-2024 Basophils/100 WBC (Bld) 0.4 % 0-1 [facility] Bilirubin Test strip Ql (U)O rdered By: Inderjit Gillespie on 09-01-2024 Bilirubin Ql (U) Negative Negative [facility] Brain/Head without Contrasto n 09-01-2024 Brain/Head without Contrast [facility] [address] [place] [address] Brain/Head without Contrast MR#: [id number] Acct: [id number] Name: ROBY FLORES Rep #: [id number] : 1935 M 89 From: Jose harris MD PCP: Dr. Stas Mora MD Status: REG ER Study: Brain/Head without Contrast Date of Exam: 08/21 05/17 Exam# [id number] Ordering Dr: Inderjit Gillespie MD PROCEDURE: BRAIN/HEAD WITHOUT CONTRAST 09/01/2024 REASON FOR EXAM: FALL ON COUMADIN Dementia. TECHNIQUE: Head CT without intravenous contrast. Coronal and Sagittal reconstruction series were provided. One or more dose reduction techniques [...] thickening of the ethmoid sinuses and opacification of the left maxillary sinus. Bones: No fracture. CT/Brain/Head without Contrast IMPRESSION: Cerebral atrophy. Mucosal thickening of the ethmoid sinuses as well as opacification of the left maxillary sinus. Reading Location: [place] [address] CC: Dr. Inderjit Gillespie MD; Dr. Stas Mora MD [employer]: Signed Normal [facility] CBC W/Diff, Automatedon 08-21 Absolute Lymph 0.62 X10 3/uL Low 0.83-4.51 [facility] Comment on above: Performed By: #### M 200.1000, L509.7001, L101.9900, L501.6710 #### [facility] [address] [place], [address] Absolute Neut 11.3 X10 3/uL High 2.0-7.7 [facility] Comment on above: Performed By: #### M 200.1000, L509.7001, L101.9900, L501.6710 #### [facility] [address] [place], [address] Basophils/100 WBC (Bld) 0.4 % Normal 0-1 [facility] Comment on above: Performed By: #### M 200.1000, L509.7001, L101.9900, L501.6710 #### [facility] [address] [place], [address] Eosinophils/100 WBC (Bld) 1.2 % Normal 0-5 [facility] Comment on above: Performed By: #### M 200.1000, L509.7001, L101.9900, L501.6710 #### [facility] [address] [place], [address] Erythrocyte distribution width (RBC) [Ratio] 17.2 % High 11.6-14.6 [facility] Comment on above: Performed By: #### M 200.1000, L509.7001, L101.9900, L501.6710 #### [facility] [address] [place], [address] Hematocrit (Bld) [Volume fraction] 36.8 % Low 40-54 [facility] Comment on above: Performed By: #### M 200.1000, L509.7001, L101.9900, L501.6710 #### [facility] [address] [place], [address] Hemoglobin (Bld) [Mass/Vol] 11.6 g/dL Low 13.0-16.5 [facility] Comment on above: Performed By: #### M 200.1000, L509.7001, L101.9900, L501.6710 #### [facility] [address] [place], [address] IG% 0.400 Normal 0.0-0.9 [facility] Comment on above: Result Comment: IG% - Immature Granulocytes (promyelocytes, myelocytes and metamyelocytes) > 1% indicates that a LEFT SHIFT is Present. Performed By: #### M 200.1000, L509.7001, L101.9900, L501.6710 #### [facility] [address] [place], [address] Lymphocytes/100 WBC (Bld) 4.8 % Low 19-41 [facility] Comment on above: Performed By: #### M 200.1000, L509.7001, L101.9900, L501.6710 #### [facility] [address] [place], [address] MCH (RBC) [Entitic mass] 24.6 pg Low 27.0-32.0 [facility] Comment on above: Performed By: #### M 200.1000, L509.7001, L101.9900, L501.6710 #### [facility] [address] [place], [address] MCHC (RBC) [Mass/Vol] 31.5 g/dL Low 32-36 [facility] Comment on above: Performed By: #### M 200.1000, L509.7001, L101.9900, L501.6710 #### [facility] [address] [place], [address] MCV (RBC) [Entitic vol] 78.0 fL Low 80-94 [facility] Comment on above: Performed By: #### M 200.1000, L509.7001, L101.9900, L501.6710 #### [facility] [address] [place], [address] Monocytes/100 WBC (Bld) 5.7 % Normal 0-10 [facility] Comment on above: Performed By: #### M 200.1000, L509.7001, L101.9900, L501.6710 #### [facility] [address] [place], [address] Neutrophils/100 WBC (Bld) 87.5 % High 47-70 [facility] Comment on above: Performed By: #### M 200.1000, L509.7001, L101.9900, L501.6710 #### [facility] [address] [place], [address] Nucleated RBC (Bld) [#/Vol] 0 10*3/uL Normal 0-5 [facility] Comment on above: Performed By: #### M 200.1000, L509.7001, L101.9900, L501.6710 #### [facility] [address] [place], [address] Platelet mean volume (Bld) [Entitic vol] 9.4 fL Normal 6.2-12.0 [facility] Comment on above: Performed By: #### M 200.1000, L509.7001, L101.9900, L501.6710 #### [facility] [address] [place], [address] Platelets (Bld) [#/Vol] 258 10*3/uL Normal 150-450 [facility] Comment on above: Performed By: #### M 200.1000, L509.7001, L101.9900, L501.6710 #### [facility] [address] [place], [address] RBC (Bld) [#/Vol] 4.72 10*6/uL Normal 4.6-6.2 [facility] Comment on above: Performed By: #### M 200.1000, L509.7001, L101.9900, L501.6710 #### [facility] [address] [place], [address] RDW SD 48.2 fl High 35.1-43.9 [facility] Comment on above: Performed By: #### M 200.1000, L509.7001, L101.9900, L501.6710 #### [facility] [address] [place], [address] WBC (Bld) [#/Vol] 12.9 10*3/uL High 4.4-11.0 [facility] Comment on above: Performed By: #### M 200.1000, L509.7001, L101.9900, L501.6710 #### [facility] [address] [place], [address] CNPNon 09-01-2024 CNPN Telephone (PHMEWO) ROBY FLORES ([id number]) 1935 M Date Time Provider Department 09/01/24 RUSSELL AGUAYO During your visit today, we recorded the following information about you: Russell Aguayo [facility] 09/01/2024 10:01 AM Signed PCP reached out to PharmD regarding ways to get memantine tabs or rivastigmine patch at a reduced cost. Per recent PCP note, memantine was originally affordable at $18.75 but increased to ~$55. Rivastigmine patch was ordered yesterday. PharmD called pharmacy and confirmed copay is $100 x 30 patches. Memantine (Namenda) tablets are available at a more affordable alvarado using Good Rx coupons. At [facility] (his current pharmacy), he can get a 1 mo supply for ~$30. If he switches the prescription to [facility], he can get a 1 mo supply for ~$20. See coupons below. Rivastigmine patches are also available via [facility]. It appears the cheapest option is through [facility], in which he can get 30 patches for $52. Coupon also below. Sending to PCP to review and provide patient with coupon card information. Russell Aguayo, Saúl, BCPS Primary Care Clinical Pharmacist Memantine coupon at [facility] Memantine coupon at [facility] Rivastigmine patches coupon at [facility] Luciana Cisneros MD 09/01/2024 1:27 PM Signed Rahul Chau, Staff please let patient know what the pharmacist as opined on. Regards, Haydee Mares MD, LPN 09/01/2024 2:49 PM Signed [employer] message sent Allergies As of Date: 09/01/2024 (No Known Allergies) Date Reviewed: 08/31/2024 Reviewed by: Wendy Faulnker MA - Fully Assessed Reason for Visit: Medication Problem [65] Cmt: Cost Prescriptions as of 09/01/2024 - rivastigmine (EXELON) 4.6 mg/24 hour patch Apply 1 patch as directed once daily. - memantine (NAMENDA) 10 mg tablet Take [...] as directed. 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 RAPID ([facility] T)on 09-01-2024 SARS-CoV-2 (COVID-19) RNA LOLI+probe Ql (Unsp spec) *Negative results from patients with symptom onset beyond five days should be treated as presumptive and confirmed by a molecular assay if clinically necessary. Negative results should not be used as the sole basis for treatment or for patient management. SARS-CoV-2 Ag Resp Ql IA.rapid * This test has not been FDA cleared or approved; the test has been authorized by FDA under an Emergency Use Authorization (EAU) for use by laboratories certified under CLIA that meet the requirements to perform moderate, high, or waived complexity tests. SARS-CoV-2 Ag Resp Ql IA.rapid Normal Reference Range: Negative SARS-CoV-2 (COVID 19) Negative RAPID METHOD [employer] COVID19 Ag Card Normal [facility] Comment on above: Performed By: #### M 200.1000, L509.7001, L101.9900, L501.6710 #### [facility] [address] [facility] [place], [address] COVID-19 virus antigen assay Ordered By: Marta Black on 09-01-2024 SARS-CoV-2 (COVID-19) Ag IA.rapid Ql (Resp) [facility] CRPon 09-01-2024 C-REACTIVE PROT 26.80 mg/L High 0.0-3.0 [facility] Comment on above: Performed By: #### M 200.1000, L509.7001, L101.9900, L501.6710 #### [facility] [address] [place], [place], [id number] Carbon dioxide, total [Moles /volume] in Central venous bloodOrdered By: Inderjit Gillespie on 09-01-2024 CO2 [Moles/Vol] 24.3 mmol/L 21.0-32.0 [facility] Chest 1 View (Portable)on Chest 1 View (Portable) [facility] Services [address] [place], [place] [id number] Chest 1 View (Portable) MR#: [id number] Acct: [id number] Name: ROBY FLORES Rep #: [id number] : 1935 M 89 From: Jose harris MD PCP: Dr. Sats Mora MD Status: REG ER Study: Chest 1 View (Portable) Date of Exam: 09/01/24 Exam# [id number] Ordering Dr: Inderjit Gillespie MD PROCEDURE: CHEST 1 VIEW (PORTABLE) [...] No acute abnormality is seen. Reading Location: [place] [address] CC: Dr. Inderjit Gillespie MD; Dr. Stas Mora MD [employer] Ware[employer] Associate: Signed Normal [facility] Chloride assayOrdered By: Aries Gillespie on 09-01-2024 Chloride [Moles/Vol] 105 mmol/L 98-108 [facility] Emergency Department Summary on 09-01-2024 Emergency Department Summary [facility] Medical Records Department [address] [place] [address] Emergency Department Summary 09/01/24 MR#: [id number] Acct: [id number] Name: ROBY FLORES Rep #: [id number] : 1935 89 From: Inderjit Gillespie MD PCP: Dr. Stas Mora MD Status:REG ER Location: ED HPI HPI - Fall [...] similar symptoms: No Recent Illness/Hospitalization: No PFSH PFS Medical History Chronic anticoagulation TIA (transient ischemic attack) Anticoagulant long-term use CAD (coronary artery disease) Home Medications ???Medication ???Instructions ???Recorded ???Last Taken ???Type warfarin 2.5 mg tablet 2.5 mg PO DAILY blood thinner 09/2010/06/17 History atorvastatin 40 mg tablet 40 mg PO QHS #30 tabs 12/22/21 Unk nown Rx lisinopril 10 mg tablet 10 mg PO DAILY #30 tabs 12/22/21 U nknown Rx memantine 10 mg tablet 10 mg PO BID 09/01/24 Unknown Hist ory rivastigmine 4.6 mg/24 hour 1 patch topical DAILY 09/01/24 Unk nown History transdermal patch Allergy/AdvReac Type Severity Reaction [...] has no trauma or tenderness or bruising or abrasions to his face or scalp. C-spine and neck are nontender. Back and spine are nontender without any signs of trauma. Lungs clear to auscultation bilaterally. Heart A-fib rate in the 70s. Chest wall and ribs nontender. Abdomen soft nontender. Pelvic girdle intact. He has no shortening or rotation of either hip. He is able to flex and extend both hips. Femurs are nontender. There is no deformity. He has normal flexion extension of his knees and ankles. Normal dorsi plantarflexion. Upper extremities are nontender he is abrasion behind his left elbow but he can raise both arms over his head. He can flex extend his shoulders elbows and wrist. 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 Neurologically he is awake alert. Answering [...] Delivery Method Room Air Room Air 09/01/24 (more content not included)... Normal [facility] Eosinophil percentageOrdered By: Inderjit Gillespie on 09-01-2024 Eosinophils/100 WBC (Bld) 1.2 % 0-5 [facility] Erythrocyte Sed Rateon 09-01 SED RATE 2 mm/hr Normal 0-20 [facility] Comment on above: Performed By: #### M 200.1000, L509.7001, L101.9900, L501.6710 #### [facility] [address] [place], [address] Erythrocyte distribution wid th ratioOrdered By: Inderjit Gillespie on 09-01-2024 Erythrocyte distribution width (RBC) [Ratio] 17.2 % High 11.6-14.6 [facility] Erythrocyte distribution wid th standard deviationOrdered By: Inderjit Gillespie on 09-01-2024 Erythrocyte distribution width (RBC) [Ratio] 48.2 fl High 35.1-43.9 [facility] Erythrocyte sedimentation ra teOrdered By: Marta Black on 09-01-2024 ESR (Bld) [Velocity] 2 mm/h 0-20 [facility] Glomerular filtration rate ( GFR) estimation/1.73 sq m using serum, plasma, or whole bOrdered By: Inderjit Gillespie on 09-01-2024 GFR/1.73 sq M.predicted among non-blacks MDRD (S/P/Bld) [Vol rate/Area] 86 mL/min/{1.73_m2} >60 [facility] Comment on above: mL/min/1.73m2 CKD-EP I Creatinine Equation (2020) H AND P Exam - [facility]iston 09-01-2024 H&P Exam - Hospitalist [facility] Medical Records Department [address] [place] [address] H P Exam - Hospitalist 09/01/24 1018 MR#: [id number] Acct: [id number] Name: ROBY FLORES Rep #: [id number] : 1935 89 From: Kathy Wells MD PCP: Dr. Stas Mora MD Status:ADM GERMAN Location: [facility] [id number] HPI - General General Date of Admission: 09/01/24 Date of Service: 09/01/24 Chief Complaint: mechanical fall HPI Narrative ROBY FLORES, is a 89 M with a PMH as outlined who presents via the ED On 09/01/2024 with a complaint of weakness and mechanical fall. He fell whilst in the bathroom this morning.He had also fallen the day before admission. He is on coumadin on account of afib. He complained of hip discomfort after hte fall. He did not hit his head. He denied any dizziness, lightheadedness, nausea, vomiting or any other symptoms. He could not ambulate in the ED due to mechanical fall. Review of systems was otherwise negative. History was mainly obtained from his significant other and his daughter. According to the significant other he had fallen further 2 prior days as stated and also said his last fall was about a year ago. She said his legs just gave way and he fell. He was unable to get up and they had to call the EMS to get him up. He did not hit his head. As far as she knew he had not had any lightheadedness or dizziness, palpitations, nausea vomiting or any other such symptoms. Vitals in the ED were BP of 180/89, TX of 87, RR of 18 and temp of 98.9F. He was saturating at 99% on room air. CBC showed Hb of 11.6, wbc of 12.98 and platelets of 258. INR was 1.8. Chemistry showed sodium of 139, potassium of 3.7 and anion gap of 10. Cr was 0.77. URinalysis showed no evidence of UTI. CT brain showed cerebral atrophy and mucosal thickening of the ethmoid sinuses as well as opacification of the left maxillary sinus. Xray of the hip and pelvic xray showed miuld degree of joint space narrowing of both hip joints and no evidence of fracture or dislocation. He is being admitted to be managed for debility and weakness due to mechanical fall. [facility] Medical History Chronic anticoagulation TIA (transient ischemic attack) Anticoagulant long-term use CAD (coronary artery disease) Home Medications ???Medication ???Instructions ???Recorded ???Last Taken ???Type warfarin 2.5 mg tablet 2.5 mg PO DAILY blood thinner 09/2010/06/17 History atorvastatin 40 mg tablet 40 mg PO QHS #30 tabs 12/22/21 Unk nown Rx lisinopril 10 mg tablet 10 mg PO DAILY #30 tabs 12/22/21 U nknown Rx memantine 10 mg tablet 10 mg PO BID 09/01/24 Unknown Hist ory rivastigmine 4.6 mg/24 hour 1 patch topical DAILY 09/01/24 Unk nown History transdermal patch Allergy/AdvReac Type Severity Reaction Status Date / Time No Known Allergies Allergy Verified 09/01/24 07:35 Family History Other Alcoholism Surgical History Hx of appendectomy Stented coronary artery History of appendectomy Social History household members: spouse and significant other housing: house Smoking Status: Former smoker substance use type: does not use ROS ROS Narrative mainly obtained from significant other and daughter Constitutional Constitutional: Reports fatigue, malaise and weakness; Denies anorexia, chills or fever(s) Eyes Eyes: Denies change in vision ENT HEENT: Denies dysphagia, headache(s) or sinus pressure Cardiovascular Cardiovascular: Reports paroxysmal nocturnal dyspnea; Denies chest pain, dyspnea on exertion, edema, lightheadedness, orthopnea, palpitations or rapid heart rate Respiratory/Chest Respiratory/Chest: Denies cough, dyspnea, shortness of breath at rest or shortness of breath with exertion Gastrointestinal Gastrointestinal: Denies constipation, nausea or vomiting Genitourinary Genitourinary: Denies dysuria Neurologic Neurologic: Reports confusion; Denies dizziness, focal weakness or headache(s) Vital Signs Vital Signs Vital Signs: 09/01/24 07:31 09/01/24 07:36 09/01/24 [...] Blood Pressure Mean 119 Pulse Ox 99 Oxy (more content not included)... Normal [facility] Hematocrit Auto (Bld) [Volum e fraction]Ordered By: Inderjit Gillespie on 09-01-2024 Hematocrit (Bld) [Volume fraction] 36.8 % Low 40-54 [facility] Hemoglobin measurementOrdere d By: Inderjit Gillespie on 09-01-2024 Hemoglobin (Bld) [Mass/Vol] 11.6 g/dL Low 13.0-16.5 [facility] Hips B/L min 2 views w/ Pelv adolfo 09-01-2024 Hips B/L min 2 views w/ Pelvis [facility] Services [address] [place], [place] [id number] Hips B/L min 2 views w/ Pelvis MR#: [id number] Acct: [id number] Name: ROBY FLORES Rep #: [id number] : 1935 M 89 From: Jose harris MD PCP: Dr. Stas Mora MD Status: REG ER Study: Hips B/L min 2 views w/ Pelvis Date of Exam: 0 09/01/24 Exam# [id number] Ordering Dr: Inderjit Gillespie MD PROCEDURE: HIPS B/L MIN 2 [...] No fracture or dislocation present. Reading Location: [place] [address] CC: Dr. Inderjit Gillespie MD; Dr. Stas Mora MD Retail Ware[employer] Associate: Signed Normal [facility] Immature granulocytes/100 WB C Auto (Bld)Ordered By: Inderjit Gillespie on 09-01-2024 Immature granulocytes/100 WBC (Bld) 0.400 % 0.0-0.9 [facility] Comment on above: IG% - Immature Granu locytes (promyelocytes, myelocytes and metamyelocytes) > 1% indicates that a LEFT SHIFT is Present. International normalized rat io (INR) calculationOrdered By: Inderjit Gillespie on 09-01-2024 INR Coag (Bld) [Relative time] 1.8 {INR} [facility] Ketones Test strip Ql (U)Ord ered By: Inderjit Gillespie on 09-01-2024 Ketones Ql (U) Negative Negative [facility] L509.7001on 09-01-2024 Procalcitonin 0.07 ng/mL Normal <=0.10 [facility] Comment on above: Result Comment: Inte rpretation: <0.10-0.25 ng/mL: Antibiotic therapy discouraged. Bacterial infection unlikely. 0.25-0.50 ng/mL: Antibiotic therapy encouraged. Bacterial infection possible. >0.50 ng/mL: Antibiotic therapy strongly encouraged. Suggestive of presence of bacterial infection. PCT should always be interpreted in the clinical context of the patient. Therefore, clinicians should use the PCT results in conjunction with other laboratory findings and clinical signs of the patient. Performed By: #### M 200.1000, L509.7001, L101.9900, L501.6710 #### [facility] [address] [place], [address] MCV (mean corpuscular volume ) determinationOrdered By: Inderjit Gillespie on 09-01-2024 MCV (RBC) [Entitic vol] 78.0 fL Low 80-94 [facility] Mean corpuscular hemoglobin (MCH) determinationOrdered By: Inderjit Gillespie on 09-01-2024 MCH (RBC) [Entitic mass] 24.6 pg Low 27.0-32.0 [facility] Mean corpuscular hemoglobin concentration (MCHC) determinationOrdered By: Inderjit Gillespie on 09-01-2024 MCHC (RBC) [Mass/Vol] 31.5 g/dL Low 32-36 [facility] Mean platelet volume determi nationOrdered By: Inderjit Gillespie on 09-01-2024 Platelet mean volume (Bld) [Entitic vol] 9.4 fL 6.2-12.0 [facility] Microscopic analysis of urin e for red blood cells (RBC)Ordered By: Inderjit Gillespie on 09-01-2024 Microscopic analysis of urine for red blood cells (RBC) 0 SEEN /hpf 0-5 [facility] Monocyte percentageOrdered B y: Inderjit Gillespie on 09-01-2024 Monocytes/100 WBC (Bld) 5.7 % 0-10 [facility] Mucus LM Ql (Urine sed)Order ed By: Inderjit Gillespie on 09-01-2024 Mucus Ql (Urine sed) 0 SEEN /hpf [facility] Neutrophil percentageOrdered By: Inderjit Gillespie on 09-01-2024 Neutrophils/100 WBC (Bld) 87.5 % High 47-70 [facility] Nitrite Test strip Ql (U)Ord ered By: Inderjit Gillespie on 09-01-2024 Nitrite Ql (U) Negative Negative [facility] Nucleated red blood cell per centageOrdered By: Inderjit Gillespie on 09-01-2024 Nucleated RBC/100 WBC (Bld) [Ratio] 0 % 0-5 [facility] Platelet countOrdered By: Aries Gillespie on 09-01-2024 Platelets (Bld) [#/Vol] 258 10*3/uL 150-450 [facility] Potassium measurement (mass/ volume)Ordered By: Inderjit Gillespie on 09-01-2024 Potassium (Unsp spec) [Mass/Vol] 3.7 mmol/L 3.3-5.1 [facility] Procalcitonin [Mass/volume] in Serum or Plasma by ImmunoassayOrdered By: Marta Black on 09-01-2024 Procalcitonin IA [Mass/Vol] 0.07 ng/mL <0.11 [facility] Comment on above: Interpretation:<0.10 -0.25 ng/mL: Antibiotic therapy discouraged. Bacterial infection unlikely.0.25-0.50 ng/mL: Antibiotic therapy encouraged. Bacterial infection possible.>0.50 ng/mL: Antibiotic therapy strongly encouraged. Suggestive of presence of bacterial infection.PCT should always be interpreted in the clinical context of the patient. Therefore, clinicians should use the PCT results in conjunction with other laboratory findings and clinical signs of the patient. Protein Test strip Ql (U)Ord ered By: Inderjit Gillespie on 09-01-2024 Protein Ql (U) 15 mg/dl High Negative [facility] Prothrombin Time w/INRon INR Coag (PPP) [Relative time] 1.8 {INR} Normal [facility] Comment on above: Performed By: #### M 200.1000, L509.7001, L101.9900, L501.6710 #### [facility] [address] [place], [address] PT Coag (PPP) [Time] 21.4 s High 11.7-14.[address] [facility] Comment on above: Performed By: #### M 200.1000, L509.7001, L101.9900, L501.6710 #### [facility] [place], [address] Prothrombin timeOrdered By: Inderjit Gillespie on 09-01-2024 PT Coag (PPP) [Time] 21.4 s High 11.7-14.9 [facility] RBC Auto (Bld) [#/Vol]Ordere d By: Inderjit Gillespie on 09-01-2024 RBC (Bld) [#/Vol] 4.72 10*6/uL 4.6-6.2 [facility] Respiratory pathogens detect ion panel by molecular detection methodOrdered By: Marta Black on 09-01-2024 Respiratory pathogens DNA and RNA panel LOLI+probe (Resp) [facility] Serum creatinine measurement (mass/volume)Ordered By: Inderjit Gillespie on 09-01-2024 Creatinine [Mass/Vol] 0.77 mg/dL 0.70-1.20 [facility] Serum glucose measurement (m ass/volume)Ordered By: Inderjit Gillespie on 09-01-2024 Glucose [Mass/Vol] 112 mg/dL High 70-99 [facility] Serum or plasma C reactive p rotein measurement (mass/volume)Ordered By: Marta Black on 09-01-2024 CRP [Mass/Vol] 26.80 mg/L High 0.0-3.0 [facility] Serum or plasma calcium alvaro urement (mass/volume)Ordered By: Inderjit Gillespie on 09-01-2024 Calcium [Mass/Vol] 8.8 mg/dL 7.6-11.0 [facility] Serum or plasma urea nitroge n measurement (mass/volume)Ordered By: Inderjit Gillespie on 09-01-2024 Urea nitrogen [Mass/Vol] 17 mg/dL 4-19 [facility] Sodium levelOrdered By: Inderjit Gillespie on 09-01-2024 Sodium [Moles/Vol] 139 mmol/L 133-145 [facility] Squamous epithelial cells de tection in urine sediment by light microscopyOrdered By: Inderjit Gillespie on 09-01-2024 Epithelial cells.squamous LM Ql (Urine sed) 0 SEEN /hpf 0-5 [facility] Urinalysis, Completeon 09-01 BACTERIA 0 SEEN Normal None Seen [facility] Comment on above: Order Comment: CLEAN CATCH Performed By: #### L 400.0001 #### [facility] [address] [place], [address] EPI,SQUAMOUS 0 SEEN Normal 0-5 [facility] Comment on above: Order Comment: CLEAN CATCH Performed By: #### L 400.0001 #### [facility] [address] [place], [address] Mucus Ql (Urine sed) [address] [facility] Comment on above: Order Comment: CLEAN CATCH Performed By: #### L 400.0001 #### [facility] [address] [place], [address] RBC 0 SEEN Normal 0-5 [facility] Comment on above: Order Comment: CLEAN CATCH Performed By: #### L 400.0001 #### [facility] [address] [place], [address] WBC 0 SEEN Normal 0-5 [facility] Comment on above: Order Comment: CLEAN CATCH Performed By: #### L 400.0001 #### [facility] [address] [place], [address] Urine clarityOrdered By: Mario Gillespie on 09-01-2024 Clarity (U) Clear Clear [facility] Urine color determinationOrd ered By: Inderjit Gillespie on 09-01-2024 Color (U) Yellow Yellow [facility] Urine glucose detectionOrder ed By: Inderjit Gillespie on 09-01-2024 Glucose Ql (U) Normal mg/dl Normal [facility] Urine leukocyte esterase det ection by dipstickOrdered By: Inderjit Gillespie on 09-01-2024 Leukocyte esterase Test strip Ql (U) Negative Negative [facility] Urine pHOrdered By: Inderjit pack on 09-01-2024 pH (U) 8.0 [pH] 5.0 - 8.0 [facility] Urine sediment bacteria coun t by microscopy (number/high power field)Ordered By: Inderjit Gillespie on 09-01-2024 Bacteria LM.HPF (Urine sed) [#/Area] 0 /[HPF] None Seen [facility] Urine specific gravity measu rementOrdered By: Inderjit Gillespie on 09-01-2024 Specific gravity (U) [Rel density] 1.010 1.002-1.03 0 [facility] Urine urobilinogen measureme ntOrdered By: Inderjit Gillespie on 09-01-2024 Urobilinogen Ql (U) 4 mg/dl High Normal [facility] White blood cell (WBC) count Ordered By: Inderjit Gillespie on 09-01-2024 WBC (Bld) [#/Vol] 12.9 10*3/uL High 4.4-11.0 [facility] White blood cell countOrdere d By: Inderjit Gillespie on 09-01-2024 White blood cell count 0 SEEN /hpf 0-5 [facility] CNOVon 08-31-2024 CNOV Office Visit ([place] ) ROBY FLORES ([id number]) 1935 M Date Time Provider Department 08/31/24 11:00 AM LUCIANA CISNEROS During your visit today, we recorded the following information about you: Pulse Respiration Blood pressure Weight 74/minute 12/minute 124/74 73.9 kg Luciana Cisneros MD 08/31/2024 12:08 PM Signed We discussed your dementia and related symptoms: [...] any questions or if your symptoms change. Luciana Cisneros MD 08/31/2024 5:51 PM Signed Reason for Visit Follow up HPI Jaquan [...] and believing his brother, who lives in [place], was present. Jaquan also thought he had a car in [facility] and wanted to retrieve it, despite not having a stake driver's license or a car there. Additionally, [...] mg tablet warfarin (COUMADIN) 2.5 mg tablet wa (more content not included)... Normal [facility] ([id number]) 1935 M Date Time Provider Department 08/31/24 CORETTA JALLOH During your visit today, we recorded the following information about you: Coretta Jalloh RPh 08/31/2024 2:13 PM Signed [facility] Ambulatory Pharmacy Anticoagulation Clinic Anticoagulation Episode Summary Anticoagulation Care Providers Provider Role Specialty Phone number Stas Mora MD Referring Family Medicine [phone] Roby Flores is a 89 year old [...] ALLERGIES No Known Allergies 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 Paroxysmal atrial fibrillation [...] Pharmacy Anticoagulation Clinic Pharmacy Anticoagulation Clinic Pager: [phone]. Coretta Jalloh RPh 09/28/2024 11:30 AM Signed Per TE on 09/21, pt is in [facility] for rehab. He has been for for nearly 3 weeks now. Will check back next week before we call Maria Guadalupe. Will watch for notes of discharge. Coretta Jalloh RPh Allergies As of Date: 08/31/2024 (No Known Allergies) Date Reviewed: 08/31/2024 Reviewed by: Wendy Faulkner MA - Fully Assessed Reason for Visit: Anticoagulation Telephone Fu [148] Cmt: Home INR result Primary Visit Diagnosis: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 [Z79.01] Other Visit Diagnosis:Paroxysmal atrial fibrillation (HCC) [I48.0] Prescriptions as of 09/28/2024 - rivastigmine (EXELON) 4.6 mg/24 hour patch Apply 1 patch as directed once daily. - memantine (NAMENDA) 10 mg tablet Take [...] as directed. 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*08/31/2024 Encounter Status:Closed by CORETTA JALLOH on 08/31/24 Normal [facility] PT panel Coag (PPP)on 2024 INR Coag (PPP) [Relative time] 1.9 {INR} High 0.9-1.3 [facility] Comment on above: Order Comment: Stone parmar Type: BLOOD SPECIMENOrdering Facility: [facility] Address: [address] [place] [address] Result Comment: Mary min K Antagonist (VKA) Therapeutic Range: INR 2 to 3 (Target INR of 2.5) Note: For patients treated with VKA drugs, such as warfarin, the Citizen Of The [place] [employer] 2012 Guideline recommends [...] 70: 252-289 Performed By: #### 3 4528-0 ####[facility] [id number] [place] [address] [place] PT Coag (PPP) [Time] 19.2 s High <13.1 [facility] Comment on above: Order Comment: Speci men Type: BLOOD SPECIMENOrdering Facility: [facility] Address: [address], [place] [address] Performed By: #### 3 4528-0 ####[facility] BERNICE FAULKNER [id number] [place] [id number] [place] CNPMarizol 08-03-2024 CNPN Telephone (PHAMTE) ROBY FLORES ([id number]) 1935 M Date Time Provider Department 08/03/24 CORETTA JALLOH During your visit today, we recorded the following information about you: Coretta Jalloh [facility] 08/03/2024 10:52 AM Signed [facility] Pharmacy Anticoagulation Clinic Anticoagulation Episode Summary Anticoagulation Care Providers Provider Role Specialty Phone number Stas Mora MD Referring Family Medicine [phone] Roby Radha Flores is a 88 year [...] ALLERGIES No Known Allergies 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: care home current use of anticoagulant Paroxysmal atrial fibrillation (hcc) Anticoagulation Episode Summary Current INR goal: 2.0-3.0 Assessment: INR result of 2.5 is therapeutic Plan: Current Warfarin Dosing As of 08/03/2024 Full warfarin instructions: 1.5 mg every Wed, [...] any doses of warfarin. Coretta Jalloh [facility] Clinical Pharmacist, Pharmacy Anticoagulation Clinic Pharmacy Anticoagulation Clinic Pager: [phone]. Adrian ([email or web address])Elana 08/03/2024 11:01 AM Signed PATIENT CALL Patient called call center regarding missed call. Patient's caregiver called re: returning a call. Read the following to caller: Assessment: INR result of 2.5 is therapeutic Plan: Current Warfarin Dosing As of 08/03/2024 Full warfarin instructions: 1.5 mg every Wed, Sat; 2.5 mg all other days Left voice message For Maria Guadalupe. Advised patient to continue current weekly dose as noted above Next lab INR check scheduled on 08/31/2024 Caregiver verbalized understanding. Will route to [facility] as FYI. Elana Campbell (Art Teacher) Coretta Jalloh RPh 08/03/2024 11:20 AM Signed I have reviewed the below recommendations and agree with plan. 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 care home current use of anticoagulant [Z79.01]09/22/2016 Paroxysmal atrial fibrillation (HCC) [I48.0] 09/22/2016 Hyperlipidemia [E78.5] 08/26/2022 Encounter Status:Closed by CORETTA JALLOH on 08/03/24 Normal [facility] PT panel Coag (PPP)on 2024 INR Coag (PPP) [Relative time] 2.5 {INR} High 0.9-1.3 [facility] Comment on above: Order Comment: Speci men Type: BLOOD SPECIMENOrdering Facility: [facility] Address: [address] [place] [address] Result Comment: Mary min K Antagonist (VKA) Therapeutic Range: INR 2 to 3 (Target INR of 2.5) Note: For patients treated with VKA drugs, such as warfarin, the Citizen Of The [place] [employer] 2012 Guideline recommends [...] 70: 252-289 Performed By: #### 3 4528-0 ####[facility] [id number] [place] [address] [place] PT Coag (PPP) [Time] 24.3 s High <13.1 [facility] Comment on above: Order Comment: Speci men Type: BLOOD SPECIMENOrdering Facility: [facility] Address: [address] [place] [address] Performed By: #### 3 4528-0 ####[facility] [id number] [place] [address] [place] CNOVon 07-28-2024 [facility]Y FLORES ([id number]) 1935 M Date Time Provider Department 07/28/24 11:20 AM STAS MORA FAMPWS During your visit [...] Coronary atherosclerosis of unspecified type of vessel, unalakleet or graft Coronary artery disease Other and [...] Past Histories independently gathered by the clinical sales support manager and the remaining scribed note accurately describes [...] - Fully Assessed Reason for Visit: Lump [[id number]] Cmt: Elbow Primary Visit Diagnosis:Bursitis of right elbow, unspecified bursa [M70.31] Prescriptions as of 07/28/2024 - memantine (NAMENDA) 10 mg tablet Take 1 tablet by mouth two times a day. - atorvastatin (LIPITOR) 40 mg tablet Take 1 tablet by mouth daily at bedtime. - warfarin (COUMADIN) 2.5 mg tablet Take as directed (more content not included)... [facility] (GERIWR) SANDRAROBY ([id number]) 1935 M Date Time Provider Department 07/12/24 [...] the confusion. 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 [Z79.01]09/22/2016 Paroxysmal atrial fibrillation (HCC) [I48.0] 09/22/2016 Hyperlipidemia [E78.5] 08/26/2022 Encounter Status:Closed by WENDY FAULKNER on 07/18/24 Normal [facility] CNPNon 07-06-2024 CNPN Telephone (W-locateMTE) ROBY FLORES ([id number]) 1935 M Date Time Provider Department 07/06/24 CORETTA JALLOH During your visit today, we recorded the following information about you: Coretta Jalloh RPh 07/06/2024 10:16 AM Signed [facility]ulatory Pharmacy Anticoagulation Clinic Anticoagulation Episode Summary Anticoagulation Care Providers Provider Role Specialty Phone number Stas Mora MD Referring Family Medicine [phone] Roby Martinezenter is a 88 year old [...] ALLERGIES No Known Allergies 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 Paroxysmal atrial fibrillation [...] any doses of warfarin. Coretta Jalloh [facility] Clinical Pharmacist, Pharmacy Anticoagulation Clinic Pharmacy Anticoagulation Clinic Pager: [phone]. 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 [Z79.01]09/22/2016 Paroxysmal atrial fibrillation (HCC) [I48.0] 09/22/2016 Hyperlipidemia [E78.5] 08/26/2022 Encounter Status:Closed by CORETTA JALLOH on 07/06/24 Normal [facility] PT panel Coag (PPP)on 2024 INR Coag (PPP) [Relative time] 2.1 {INR} High 0.9-1.3 [facility] Comment on above: Order Comment: Speci men Type: BLOOD SPECIMENOrdering Facility: [facility] Address: [address] [place] [address] Result Comment: Mary min K Antagonist (VKA) Therapeutic Range: INR 2 to 3 (Target INR of 2.5) Note: For patients treated with VKA drugs, such as warfarin, the Citizen Of The [place] [employer] 2012 Guideline recommends [...] 70: 252-289 Performed By: #### 3 4528-0 ####[facility] [id number] [place] [address] [place] PT Coag (PPP) [Time] 21.0 s High <13.1 [facility] Comment on above: Order Comment: Speci men Type: BLOOD SPECIMENOrdering Facility: [facility] Address: [address] [place] [address] Performed By: #### 3 4528-0 ####[facility] [id number] [address] [place] CNPMarizol 06-29-2024 CNPN Telephone (PHAMTE) ROBY FLORES ([id number]) 1935 M Date Time Provider Department 06/29/24 CORETTA JALLHO During your visit today, we recorded the following information about you: Coretta Jalloh RPh 06/29/2024 9:54 AM Signed [facility] Ambulatory Pharmacy Anticoagulation Clinic Anticoagulation Episode Summary Anticoagulation Care Providers Provider Role Specialty Phone number Stas Mora MD Referring Family Medicine [phone] Roby Radha Flores is a 88 year [...] ALLERGIES No Known Allergies 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 Paroxysmal atrial fibrillation (hcc) Anticoagulation Episode Summary Current INR goal: 2.0-3.0 Assessment: INR result of 2.5 is therapeutic Plan: Current Warfarin Dosing As of 06/29/2024 Full warfarin instructions: 1.5 mg every Thu, Sat; 2.5 mg all other days Sent BABL Media message Advised patient to continue current weekly dose as noted above Next home INR check scheduled on 07/06/2024 Patient advised to call the PAC with any medication changes, bleeding/bruising concerns, recent changes in vitamin k consumption, if any procedures are coming up, if they have been ill or in the hospital, and if they have missed any doses of warfarin. Coretta Jalloh [facility] Clinical Pharmacist, Pharmacy Anticoagulation Clinic Pharmacy Anticoagulation Clinic Pager: [phone]. 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 care home current use of anticoagulant [Z79.01]09/22/2016 Paroxysmal atrial fibrillation (HCC) [I48.0] 09/22/2016 Hyperlipidemia [E78.5] 08/26/2022 Encounter Status:Closed by CORETTA JALLOH on 06/29/24 Normal [facility] PT panel Coag (PPP)on 2024 INR Coag (PPP) [Relative time] 2.5 {INR} High 0.9-1.3 [facility] Comment on above: Order Comment: Speci men Type: BLOOD SPECIMENOrdering Facility: [facility] Address: [address] [place] [address] Result Comment: Mary min K Antagonist (VKA) Therapeutic Range: INR 2 to 3 (Target INR of 2.5) Note: For patients treated with VKA drugs, such as warfarin, the Citizen Of [place] [employer] 2012 Guideline recommends [...] 70: 252-289 Performed By: #### 3 4528-0 ####[facility] [id number] [place] [address] [place] PT Coag (PPP) [Time] 24.4 s High <13.1 [facility] Comment on above: Order Comment: Speci men Type: BLOOD SPECIMENOrdering Facility: [facility] Address: [address] [place] [address] Performed By: #### 3 4528-0 ####[facility] [id number] [place] [address] [place] CNOVon 06-01-2024 CNOV Office Visit ([place] ) ROBY FLORES ([id number]) 1935 M Date Time Provider Department 06/01/24 3:00 PM LUCIANA CISNEROS During your visit today, we recorded the following information about you: Pulse Blood pressure Weight Height 46/minute 132/60 73.8 kg 1.819 m Luciana Cisneros MD 07/14/2024 4:10 PM Addendum [facility] Initial Consult Roby Flores [...] not know 911 Social History: Primary language: Kenyan Marital Status: Single Living situation: Home w/ SO Socially engaged? (participates in activities such as clubs, mandaen, community center, sports, games, visiting friends/relatives, etc?): They go out to eat sometimes, not as often, most of the time they order stuff and pick it up at home. Caregiver [place] and Stress Are your feeling overwhelmed? 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 Normal [facility] CNOVon 05-26-2024 CNOV Office Visit (FAMPWS ) ROBY FLORES ([id number]) 1935 M Date Time Provider Department 05/26/24 9:20 AM [facility] During your visit today, we recorded the following information about you: Pulse Respiration Blood pressure Weight 56/minute 18/minute 144/82 73.5 kg Stas Mora MD 05/26/2024 9:39 AM Signed Chief Complaint Patient presents with: F/U 6 Month HPI Roby Radha Flores is a 88 year old male [...] Coronary atherosclerosis of unspecified type of vessel, unalakleet or graft Coronary artery disease Other and [...] due on (more content not included)... 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 care home current use of anticoagulant [Z79.01]09/22/2016 Paroxysmal atrial fibrillation (HCC) [I48.0] 09/22/2016 Hyperlipidemia [E78.5] 08/26/2022 Encounter Status:Closed by EDILIA MOSLEY on 05/26/24 Normal [facility] CBC W Auto Differential pane l (Bld)on 05-25-2024 Basophils (Bld) [#/Vol] 0.05 10*3/uL Normal <0.11 [facility] Comment on above: Order Comment: Speci men Type: BLOOD SPECIMENOrdering Facility: [facility] Address: [address] [place] [address] Performed By: #### 5 7021-8 ####[facility] BERNICE AFULKNER [id number] [place] [address] [place] Basophils/100 WBC (Bld) 0.6 % Normal [facility] Comment on above: Order Comment: Speci men Type: BLOOD SPECIMENOrdering Facility: [facility] Address: [address] [place] [address] Performed By: #### 5 7021-8 ####[facility] [id number] [place] [address] [place] Differential cell count method Nom (Bld) Auto Normal [facility] Comment on above: Order Comment: Speci men Type: BLOOD SPECIMENOrdering Facility: [facility] Address: [address] [place] [address] Performed By: #### 5 7021-8 ####[facility] [id number] [place] [address] [place] Eosinophils (Bld) [#/Vol] 0.08 10*3/uL Normal <0.46 [facility] Comment on above: Order Comment: Speci men Type: BLOOD SPECIMENOrdering Facility: [facility] Address: [address] [place] [address] Performed By: #### 5 7021-8 ####[facility] [id number] [place] [address] [place] Eosinophils/100 WBC (Bld) 1.0 % Normal [facility] Comment on above: Order Comment: Speci men Type: BLOOD SPECIMENOrdering Facility: [facility] Address: [address] [place] [address] Performed By: #### 5 7021-8 ####[facility] [id number] [place] [address] [place] Erythrocyte distribution width (RBC) [Ratio] 16.7 % High 11.5-15.0 [facility] Comment on above: Order Comment: Speci men Type: BLOOD SPECIMENOrdering Facility: [facility] Address: [address] [place] [address] Performed By: #### 5 7021-8 ####[facility] [id number] [place] [address] [place] Hematocrit (Bld) [Volume fraction] 38.7 % Low 39.0-51.0 [facility] Comment on above: Order Comment: Speci men Type: BLOOD SPECIMENOrdering Facility: [facility] Address: [address] [place] [address] Performed By: #### 5 7021-8 ####[facility]ENTER[facility]ER[facility] [id number] [place] [address] [place] Hemoglobin (Bld) [Mass/Vol] 11.8 g/dL Low 13.0-17.0 [facility] Comment on above: Order Comment: Speci men Type: BLOOD SPECIMENOrdering Facility: [facility] Address: [address] [place] [address] Performed By: #### 5 7021-8 ####[facility] CENTERAMINATARachel [id number] [place] [address] [place] Immature granulocytes (Bld) [#/Vol] 10*3/uL Normal <0.10 [facility] Comment on above: Order Comment: Speci men Type: BLOOD SPECIMENOrdering Facility: [facility] Address: [address] [place] [address] Performed By: #### 5 7021-8 ####[facility] CENTERFATIMAHA [id number] [place] [address] [place] Immature granulocytes/100 WBC (Bld) 0.2 % Normal [facility] Comment on above: Order Comment: Speci men Type: BLOOD SPECIMENOrdering Facility: [facility] Address: [address] [place] [address] Performed By: #### 5 7021-8 ####[facility] SYSTEMSWNCLIA [id number] [place] [address] [place] Lymphocytes (Bld) [#/Vol] 1.50 10*3/uL Normal 1.00-4.00 [facility] Comment on above: Order Comment: Speci men Type: BLOOD SPECIMENOrdering Facility: [facility] Address: [address] [place] [address] Performed By: #### 5 7021-8 ####[facility] [id number] [place] [address] [place] Lymphocytes/100 WBC (Bld) 18.7 % Normal [facility] Comment on above: Order Comment: Speci men Type: BLOOD SPECIMENOrdering Facility: [facility] Address: [address] [place] [address] Performed By: #### 5 7021-8 ####[facility] [id number] [place] [address] [place] MCH (RBC) [Entitic mass] 23.6 pg Low 26.0-34.0 [facility] Comment on above: Order Comment: Speci men Type: BLOOD SPECIMENOrdering Facility: [facility] Address: [address] [place] [address] Performed By: #### 5 7021-8 ####[facility] [id number] [place] [address] [place] MCHC (RBC) [Mass/Vol] 30.5 g/dL Normal 30.5-36.0 [facility] Comment on above: Order Comment: Speci men Type: BLOOD SPECIMENOrdering Facility: [facility] Address: [address] [place] [address] Performed By: #### 5 7021-8 ####[facility]ENTERNCLI [id number] [place] [address] [place] MCV (RBC) [Entitic vol] 77.6 fL Low 80.0-100.0 [facility] Comment on above: Order Comment: Speci men Type: BLOOD SPECIMENOrdering Facility: [facility] Address: [address] [place] [address] Performed By: #### 5 7021-8 ####[facility]ENTERNCLIA [id number] [place] [address] [place] Monocytes (Bld) [#/Vol] 0.64 10*3/uL Normal <0.87 [facility] Comment on above: Order Comment: Speci men Type: BLOOD SPECIMENOrdering Facility: [facility] Address: [address] [place] [address] Performed By: #### 5 7021-8 ####[facility]ENTERNCLIA [id number] [place] [address] [place] Monocytes/100 WBC (Bld) 8.0 % Normal [facility] Comment on above: Order Comment: Speci men Type: BLOOD SPECIMENOrdering Facility: [facility] Address: [address] [place] [address] Performed By: #### 5 7021-8 ####[facility]ENTERNCLIA [id number] [place] [address] [place] Neutrophils (Bld) [#/Vol] 5.75 10*3/uL Normal 1.45-7.50 [facility] Comment on above: Order Comment: Speci men Type: BLOOD SPECIMENOrdering Facility: [facility] Address: [address] [place] [address] Performed By: #### 5 7021-8 ####[facility]ENTERNCLIA [id number] [place] [address] [place] Neutrophils/100 WBC (Bld) 71.5 % Normal [facility] Comment on above: Order Comment: Speci men Type: BLOOD SPECIMENOrdering Facility: [facility] Address: [address] [place] [address] Performed By: #### 5 7021-8 ####[facility] FORKJERMAIN [id number] [place] [address] [place] Nucleated RBC (Bld) [#/Vol] 10*3/uL Normal <0.01 [facility] Comment on above: Order Comment: Speci men Type: BLOOD SPECIMENOrdering Facility: [facility] Address: [address] [place] [address] Performed By: #### 5 7021-8 ####[facility]ENTERNCLIZZ [id number] [place] [address] [place] Nucleated RBC/100 WBC (Bld) [Ratio] 0.0 /100 WBC Normal [facility] Comment on above: Order Comment: Speci men Type: BLOOD SPECIMENOrdering Facility: [facility] Address: [address] [place] [address] Performed By: #### 5 7021-8 ####[facility]ENTERNCLIA [id number] [place] [address] [place] Platelet mean volume (Bld) [Entitic vol] 10.6 fL Normal 9.0-12.7 [facility] Comment on above: Order Comment: Speci men Type: BLOOD SPECIMENOrdering Facility: [facility] Address: [address] [place] [address] Performed By: #### 5 7021-8 ####[facility]ENTERNCLIA [id number] [place] [address] [place] Platelets (Bld) [#/Vol] 257 10*3/uL Normal 150-400 [facility] Comment on above: Order Comment: Speci men Type: BLOOD SPECIMENOrdering Facility: [facility] Address: [address] [place] [address] Performed By: #### 5 7021-8 ####[facility]ITALTOWNCLIA [id number] [place] [address] [place] RBC (Bld) [#/Vol] 4.99 10*6/uL Normal 4.20-6.00 [facility] Comment on above: Order Comment: Speci men Type: BLOOD SPECIMENOrdering Facility: [facility] Address: [address] [place] [address] Performed By: #### 5 7021-8 ####[facility]ENTERNCLIA [id number] [place] [address] [place] WBC (Bld) [#/Vol] 8.04 10*3/uL Normal 3.70-11.00 [facility] Comment on above: Order Comment: Speci men Type: BLOOD SPECIMENOrdering Facility: [facility] Address: [address] [place] [address] Performed By: #### 5 7021-8 ####[facility]ERNCLIA [id number] [address] [place] CNPMarizol 05-25-2024 CNPN Telephone (TIAE) ROBY FLORES ([id number]) 1935 M Date Time Provider Department 05/25/24 PAIGE HICKMAN During your visit today, we recorded the following information about you: Paige Hickman RPh 05/25/2024 1:51 PM Signed [facility] Anticoagulation Clinic Anticoagulation Episode Summary Anticoagulation Care Providers Provider Role Specialty Phone number Stas Mora MD Referring Family Medicine [phone] Roby Martinezenter is a 88 year old [...] Sat; 2.5 mg all other days Sent BABL Media message Advised patient to continue current weekly dose as noted above Next INR check due on 06/29/2024 Paige Hickman [facility]ly [facility] Clinical Pharmacist, Pharmacy Anticoagulation Clinic Pharmacy Anticoagulation Clinic Pager: [phone]. 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 [Z79.01]09/22/2016 Paroxysmal atrial fibrillation (HCC) [I48.0] 09/22/2016 Hyperlipidemia [E78.5] 08/26/2022 Encounter Status:Closed by PAIGE HICKMAN on 05/25/24 Normal [facility] Comprehensive metabolic 2000 panelon 05-25-2024 Albumin [Mass/Vol] 4.2 g/dL Normal 3.9-4.9 [facility] Comment on above: Order Comment: Speci men Type: BLOOD SPECIMENOrdering Facility: [facility] Address: [address] [place] [address] Performed By: #### 2 4331-1 ####[facility] LABORATORYCLIA [id number] [place] [address] [place] OF [facility] [id number] [address] STATES [place]#### [address]-8 ####[facility] HOSPITALLIA [id number] [place] [address] [place] ALP [Catalytic activity/Vol] 138 U/L High 38-113 [facility] Comment on above: Order Comment: Speci men Type: BLOOD SPECIMENOrdering Facility: [facility] Address: [address] [place] [address] Performed By: #### 2 4331-1 ####[facility] LABORATORYCLIA [id number] [address] [id number] [address] STATES [place]#### 70840-9 ####[facility] [id number] [address] [place] ALT [Catalytic activity/Vol] 17 U/L Normal 10-54 [facility] Comment on above: Order Comment: Speci men Type: BLOOD SPECIMENOrdering Facility: [facility] Address: [address] [place] [address] Performed By: #### 2 4331-1 ####[facility] LABORATORYCLIA [id number] [address] [id number] [address] [place]#### 65492-8 ####[facility] [id number] [place] [address] [place] Anion gap [Moles/Vol] 11 mmol/L Normal 8-15 [facility] Comment on above: Order Comment: Speci men Type: BLOOD SPECIMENOrdering Facility: [facility] Address: [address] [place] [address] Performed By: #### 2 4331-1 ####[facility]ORATORYCLIA [id number] [place], [place] [address] [place] [address] BERNICE MILLTOWNCLIA [id number] [address] STATES [place]#### 81538-0 ####[facility] MILLTOWNCLIA [id number] [place] [address] [place] AST [Catalytic activity/Vol] 22 U/L Normal 14-40 [facility] Comment on above: Order Comment: Speci men Type: BLOOD SPECIMENOrdering Facility: [facility] Address: [address] [place] [address] Performed By: #### 2 4331-1 ####[facility] LABORATORYCLIA [id number] [address] BERNICE MILLTOWNCLIA [id number] [place] [address] [place]#### 36975-1 ####[facility] MILLTOWNCLIA [id number] [place] [address] [place] Bilirubin [Mass/Vol] 0.8 mg/dL Normal 0.2-1.3 [facility] Comment on above: Order Comment: Speci men Type: BLOOD SPECIMENOrdering Facility: [facility] Address: [address] [place] [address] Performed By: #### 2 4331-1 ####[facility] LABORATORYCLIA [id number] [address] BERNICE MILLTOWNCLIA [id number] [place] [address] [place]#### 22942-7 ####[facility] MILLTOWNCLIA [id number] [place] [address] [place] Calcium [Mass/Vol] 8.8 mg/dL Normal 8.5-10.2 [facility] Comment on above: Order Comment: Speci men Type: BLOOD SPECIMENOrdering Facility: [facility] Address: [address] [place] [address] Performed By: #### 2 4331-1 ####[facility] LABORATORYCLIA [id number] [place] [address] [place] [facility] BERNICE MILLTOWNCLIA [id number] [place] [address] [place]#### 10032-5 ####[facility] MILLTOWNCLIA [id number] [place] [address] [place] Chloride [Moles/Vol] 102 mmol/L Normal 98-107 [facility] Comment on above: Order Comment: Speci men Type: BLOOD SPECIMENOrdering Facility: [facility] Address: [address] [place] [address] Performed By: #### 2 4331-1 ####[facility] LABORATORYCLIA [id number] [address] OF [facility] BERNICEBRATTLEBORO MEMORIAL HOSPITALWNCLIA [id number] [place] [address] [place]#### 34987-3 ####[facility] MILLWNCLIA [id number] [place] [address] [place] CO2 [Moles/Vol] 24 mmol/L Normal 22-30 [facility] Comment on above: Order Comment: Speci men Type: BLOOD SPECIMENOrdering Facility: [facility] Address: [address] [place] [address] Performed By: #### 2 4331-1 ####[facility] LABORATORYCLIA [id number] [place] [address] [place] [facility] BERNICE MILLWNCLIA [id number] [address]#### [address]-9 ####[facility] HOSPITALLIA [id number] [place] [address] [place] [facility] Creatinine [Mass/Vol] 0.73 mg/dL Normal 0.73-1.22 [facility] Comment on above: Order Comment: Speci men Type: BLOOD SPECIMENOrdering Facility: [facility] Address: [address] [place] [address] Performed By: #### 2 4331-1 ####[facility] LABORATORYCLIA [id number] [id number] [place] [address]#### 10564-8 ####[facility] [id number] [address] Creatinine and Glomerular filtration rate.predicted panel (S/P/Bld) 88 mL/min/1.73m??? Normal >=60 [facility] Comment on above: Order Comment: Speci men Type: BLOOD SPECIMENOrdering Facility: [facility] Address: [address] [place] [address] Result Comment: Ruby mated Glomerular Filtration Rate [...] actual GFR. Performed By: #### 2 4331-1 ####[facility] LABORATORYCLIA [id number] [address]ETWFEDERAL CORRECTION INSTITUTION HOSPITALA [id number] [address]#### 35197-4 ####[facility] HOSPITALLIA [id number] [place] [address] [place] Glucose [Mass/Vol] 98 mg/dL Normal 74-99 [facility] Comment on above: Order Comment: Speci men Type: BLOOD SPECIMENOrdering Facility: [facility] Address: [address] [place], [place] [address] Result Comment: The [place] Diabetes Association (ADA) provides guidance for cutoff [...] Standards of Medical Care in Diabetes 2016, [place] Diabetes Association. Diabetes Care. 2016.39(Suppl 1). Performed By: #### 2 4331-1 ####[employer] [facility] LABORATORYCLIA [id number] [address] [id number] [place] [address] [place]#### 65911-3 ####[facility] [id number] [place] [address] [place] Potassium [Moles/Vol] 4.1 mmol/L Normal 3.7-5.1 [facility] Comment on above: Order Comment: Speci men Type: BLOOD SPECIMENOrdering Facility: [facility] Address: [address] [place] [address] Performed By: #### 2 4331-1 ####[facility] LABORATORYCLIA [id number] [address] STATES OF [facility] [id number] [address] [place]#### 50527-3 ####[facility] SYSTEMSWNMLIA [id number] [place] [address] [place] Protein [Mass/Vol] 6.8 g/dL Normal 6.3-8.0 [facility] Comment on above: Order Comment: Speci men Type: BLOOD SPECIMENOrdering Facility: [facility] Address: [address] [place] [address] Performed By: #### 2 4331-1 ####[facility] LABORATORYCLIA [id number] [address] [id number] [address] [place]#### 07242-9 ####[facility] [id number] [place] [address] [place] Sodium [Moles/Vol] 137 mmol/L Normal 136-144 [facility] Comment on above: Order Comment: Speci men Type: BLOOD SPECIMENOrdering Facility: [facility] Address: [address] [place] [address] Performed By: #### 2 4331-1 ####[facility] LABORATORYCLIA [id number] [address] [id number] [place] [address] [place]#### 93393-1 ####[facility] HOSPITALLIA [id number] [place] [address] [place] Urea nitrogen [Mass/Vol] 14 mg/dL Normal 9-24 [facility] Comment on above: Order Comment: Speci men Type: BLOOD SPECIMENOrdering Facility: [facility] Address: [address] [place] [address] Performed By: #### 2 4331-1 ####[facility]ORATORYCLIA [id number] [place], [place] [address] [place] [id number] OF [place]#### [address]-6 ####[facility] HOSPITALLIA [id number] [place] [address] [place] Lipid 1996 panelon 5 Cholesterol [Mass/Vol] 107 mg/dL Normal <200 [facility] Comment on above: Order Comment: Speci men Type: BLOOD SPECIMENOrdering Facility: [facility] Address: [address] [place] [address] Result Comment: <200 mg/dL, Desirable 200-239 mg/dL, Borderline high >239 mg/dL, High Performed By: #### 2 4331-1 ####[facility]ORATORYCLIA [id number] [address] [id number] [address] [place]#### 61429-9 ####[facility] [id number] [address] [place] Cholesterol in HDL [Mass/Vol] 43 mg/dL Normal >39 [facility] Comment on above: Order Comment: Speci men Type: BLOOD SPECIMENOrdering Facility: [facility] Address: [address] [place] [address] Result Comment: 40-5 9 mg/dL, Acceptable >59 mg/dL, High: Negative risk factor for coronary heart disease <40 mg/dL, Low: Positive risk factor for coronary heart disease Performed By: #### 2 4331-1 ####[facility] LABORATORYCLIA [id number] [place], [place] [address] [place] [address] OF [facility] CAMPUSLIA [id number] [address]#### 479[address]-9 ####[facility] [id number] [address] Cholesterol in LDL [Mass/Vol] 51 mg/dL Normal <100 [facility] Comment on above: Order Comment: Speci men Type: BLOOD SPECIMENOrdering Facility: [facility] Address: [address] [place] [address] Result Comment: <100 mg/dL, Optimal 100-129 mg/dL, Near optimal/above optimal 130-159 mg/dL, Borderline high 160-189 mg/dL, High >189 mg/dL, Very high Secondary prevention optimal LDL Cholesterol levels are recommended to be < 70 mg/dL Performed By: #### 2 4331-1 ####[employer] LABORATORYCLIA [id number] [address] [id number] [address]#### 80978-9 ####[facility] [id number] [address] Cholesterol in LDL/Cholesterol in HDL [Mass ratio] 1.19 {ratio} Normal <2.54 [facility] Comment on above: Order Comment: Speci men Type: BLOOD SPECIMENOrdering Facility: [facility] Address: [address] [place] [address] Result Comment: Refe rence: 1. National Cholesterol Education Program ATP III Guideline At-A-Glance Quick Desk Reference: National Heart, Lung, and Blood [place]. National Institutes of Health. 2001: NIH Publication No. 01-3305. 2. An International Atherosclerosis Society position paper: global recommendations for the management of dyslipidemia: executive summary, Atherosclerosis. 2014: 232(2):410-413. Performed By: #### 2 4331-1 ####[employer] LABORATORYCLIA [id number] [address] [facility]IN[facility] BERNICE MILLTOWNCLIA [id number] [place] [address] [place]#### 39266-7 ####[facility] SYSTEMSWNCLIA [id number] [address] [place] Cholesterol in VLDL [Mass/Vol] 13 mg/dL Normal <30 [facility] Comment on above: Order Comment: Speci men Type: BLOOD SPECIMENOrdering Facility: [facility] Address: [address] [place] [address] Performed By: #### 2 4331-1 ####[facility] LABORATORYCLIA [id number] [address] [id number] [place] [address] [place]#### 33246-8 ####[facility] [id number] [place] [address] [place] Cholesterol non HDL [Mass/Vol] 64 mg/dL Normal <130 [facility] Comment on above: Order Comment: Speci men Type: BLOOD SPECIMENOrdering Facility: [facility] Address: [address] [place] [address] Result Comment: <130 mg/dL, Optimal 130-159 mg/dL, Near optimal/above optimal 160-189 mg/dL, Borderline high 190-219 mg/dL, High >219 mg/dL, Very high Secondary prevention optimal non HDL Cholesterol levels are recommended to be <100 mg/dL Performed By: #### 2 4331-1 ####[facility] LABORATORYCLIA [id number] [address] STATES OF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 [facility] 01-20-2024 CNPN Telephone (PHAMTE) ROBY FLORES ([id number]) 1935 M Date Time Provider Department 01/20/24 CORETTA JLALOH During your visit today, we recorded the following information about you: Coretta Jalloh RPh 01/20/2024 10:25 AM Signed [facility] Ambulatory Pharmacy Anticoagulation Clinic Anticoagulation Episode Summary Anticoagulation Care Providers Provider Role Specialty Phone number Stas Mora MD Referring Family Medicine [phone] Roby Martinezenter is a 88 year old [...] ALLERGIES No Known Allergies 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: care home current use of anticoagulant Paroxysmal atrial fibrillation [...] any doses of warfarin. Coretta Jalloh Former[facility] Clinical Pharmacist, Pharmacy Anticoagulation Clinic Pharmacy Anticoagulation Clinic Pager: [phone]. 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 care home current use of anticoagulant [Z79.01]09/22/2016 Paroxysmal atrial fibrillation (HCC) [I48.0] 09/22/2016 Hyperlipidemia [E78.5] 08/26/2022 Encounter Status:Closed by CORETTA JALLOH on 01/20/24 Normal [facility] PT panel Coag (PPP)on 2023 INR Coag (PPP) [Relative time] 3.4 {INR} High 0.9-1.3 [facility] Comment on above: Order Comment: Stone parmar Type: BLOOD SPECIMENOrdering Facility: [facility] Address: [address] [place] [id number] Result Comment: Mary min K Antagonist (VKA) Therapeutic Range: INR 2 to 3 (Target INR of 2.5) Note: For patients treated with VKA drugs, such as warfarin, the Citizen Of The [place] [employer]icians 2012 Guideline recommends [...] 70: 252-289 Performed By: #### 3 4528-0 ####[facility] [id number] [place] [address] [place] PT Coag (PPP) [Time] 31.8 s High <13.1 [facility] Comment on above: Order Comment: Stone parmar Type: BLOOD SPECIMENOrdering Facility: [facility] Address: [address] [place] [place] [id number] Performed By: #### 3 4528-0 ####[facility]ENTERNCLIA [id number] [address] [place] Gene 01-04-2024 SHEMARN Telephone (FAMPWS) ROBY FLORES ([id number]) 1935 M Date Time Provider Department 01/04/24 STAS MORA During your visit today, we recorded the following information about you: Oliva Westbrook LPN 01/04/2024 9:37 AM Signed Patient significant other Maria Guadalupe calling asking for a warfarin 3 mg rx to be sent to [facility]. He is taking 3 mg daily and has 1 mg tablets and 2.5 mg tablets. He keeps running out of the 1 mg every 10 days and pharmacy asking for another rx. Pending rx needs completed. Please advise Jenna Fitzpatrick APRN.CNP 01/04/2024 10:42 AM Signed The following approved medication requests have been transmitted electronically. Requested Prescriptions Signed Prescriptions Disp Refills warfarin (COUMADIN) 3 mg tablet 30 tablet 11 Sig: Take 1 tablet by mouth daily as directed. 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 Encounter Status:Closed by JENNA FITZPATRICK on 01/04/24 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 [Z79.01]09/22/2016 Paroxysmal atrial fibrillation (HCC) [I48.0] 09/22/2016 Hyperlipidemia [E78.5] 08/26/2022 Encounter Status:Closed by ELISE PAREDES on 12/24/23 Normal [facility] PT panel Coag (PPP)on 2023 INR Coag (PPP) [Relative time] 2.2 {INR} High 0.9-1.3 [facility] Comment on above: Order Comment: Speci men Type: BLOOD SPECIMENOrdering Facility: [facility] Address: [address] [place] [address] [place] [address] Result Comment: Mary min K Antagonist (VKA) Therapeutic Range: INR 2 to 3 (Target INR of 2.5) Note: For patients treated with VKA drugs, such as warfarin, the Citizen Of [place] [employer] 2012 Guideline recommends [...] 70: 252-289 Performed By: #### 3 4528-0 ####[facility] [id number] [place] [address] [place] PT Coag (PPP) [Time] 22.1 s High 9.7-13.0 [facility] Comment on above: Order Comment: Speci men Type: BLOOD SPECIMENOrdering Facility: [facility] Address: [address] [place] [address] Performed By: #### 3 4528-0 ####[facility] [id number] [address] [place] CNPMarizol 12-10-2023 SHEMARN Telephone (SHAY) ROBY FLORES ([id number]) 1935 M Date Time Provider Department 12/10/23 ELISE PAREDES During your visit today, we recorded the following information about you: Elise Paredes RPh 12/10/2023 2:21 PM Signed [facility] Pharm[facility] Anticoagulation Clinic Anticoagulation Episode Summary Anticoagulation Care Providers Provider Role Specialty Phone number Stas Mora MD Referring Family Medicine [phone] Roby Flores is a 88 year old [...] ALLERGIES No Known Allergies 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: care home current use of anticoagulant Paroxysmal atrial fibrillation (hcc) Anticoagulation Episode Summary Current INR goal: 2.0-3.0 Assessment: INR result of 1.9 is SUBtherapeutic due to: unknown cause - did not speak to patient Plan: Current Warfarin Dosing As of 12/10/2023 Full warfarin instructions: 2.5 mg every Sun; 3 mg all other days Left voice message for Gabby at [phone] (home) Advised patient to increase total weekly regimen Next lab INR check scheduled on 12/24/2023 Elise Paredes RPh Clinical Pharmacist, Pharmacy Anticoagulation Clinic Pharmacy Anticoagulation Clinic Pager: [phone]. 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 [Z79.01]09/22/2016 Paroxysmal atrial fibrillation (HCC) [I48.0] 09/22/2016 Hyperlipidemia [E78.5] 08/26/2022 Encounter Status:Closed by ELISE PAREDES on 12/10/23 Normal [facility] PT panel Coag (PPP)on 2023 INR Coag (PPP) [Relative time] 1.9 {INR} High 0.9-1.3 [facility] Comment on above: Order Comment: Stone parmar Type: BLOOD SPECIMENOrdering Facility: [facility] Address: [address] [place] [address] Result Comment: Mary min K Antagonist (VKA) Therapeutic Range: INR 2 to 3 (Target INR of 2.5) Note: For patients treated with VKA drugs, such as warfarin, the Citizen Of [place] [employer] 2012 Guideline recommends [...] 70: 252-289 Performed By: #### 3 4528-0 ####[facility] [id number] [place] [address] [place] PT Coag (PPP) [Time] 18.8 s High 9.7-13.0 [facility] Comment on above: Order Comment: Stone parmar Type: BLOOD SPECIMENOrdering Facility: [facility] Address: [address] [place] [address] Performed By: #### 3 4528-0 ####[facility] [id number] [place] [address] [place] CNOVon 11-26-2023 CNOV Office Visit (FAMPWS ) ROBY FLORES ([id number]) 1935 M Date Time Provider Department 11/26/23 10:40 AM STAS MORA During your visit today, [...] Coronary atherosclerosis of unspecified type of vessel, [place] or graft Comment: Coronary artery disease No [...] done Covid-19 Vaccine( season) due on 11/22/2023 Influ (more content not included)... Normal [facility] CNPNon 11-26-2023 CNPN Telephone (PHAMTE) ROBY FLORES ([id number]) 1935 M Date Time Provider Department 11/26/23 ELISE PAREDES During your visit today, we recorded the following information about you: Elise Paredes, [facility] 11/26/2023 4:23 PM Signed [facility] Pharm[facility] Anticoagulation Clinic Anticoagulation Episode Summary Anticoagulation Care Providers Provider Role Specialty Phone number Stas Mora MD Referring Family Medicine [phone] Roby Martinezenter is a 88 year old [...] ALLERGIES No Known Allergies 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: care home current use of anticoagulant Paroxysmal atrial fibrillation [...] PAC to discuss further Elise Paredes [facility] Clinical Pharmacist, Pharmacy Anticoagulation Clinic Pharmacy Anticoagulation Clinic Pager: [phone]. Satish (Art TeacherParmjit Berry 11/26/2023 4:30 PM Signed Patient's spouse called regarding message. Patient typically takes warfarin in the morning but did not take any today. Patient's spouse doesn't understand why its low all the sudden. Denies changes in medication/ diet or missed doses. 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 Allergies As of Date: 11/26/2023 (No Known Allergies) Date Reviewed: 11/26/2023 Reviewed by: Rosie Cruz MA - Fully Assessed Reason for Visit: Anticoagulation Telephone Fu [148] Cmt: Lab INR Primary Visit Diagnosis: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 [Z79.01] (more content not included)... Normal [facility] PT panel Coag (PPP)on 2023 INR Coag (PPP) [Relative time] 1.5 {INR} High 0.9-1.3 [facility] Comment on above: Order Comment: Stone parmar Type: BLOOD SPECIMENOrdering Facility: [facility] Address: [address] [place] [address] Result Comment: Mary min K Antagonist (VKA) Therapeutic Range: INR 2 to 3 (Target INR of 2.5) Note: For patients treated with VKA drugs, such as warfarin, the Citizen Of [place] [employer] 2012 Guideline recommends [...] 70: 252-289 Performed By: #### 3 4528-0 ####[facility] LABIA [id number] [place] [address] [place] PT Coag (PPP) [Time] 15.1 s High 9.7-13.0 [facility] Comment on above: Order Comment: Stone parmar Type: BLOOD SPECIMENOrdering Facility: [facility] Address: [address] [place] [id number] Performed By: #### 3 4528-0 ####[facility] LABCLIA [id number] [place] [address] [place] CNPMarizol 11-18-2023 CNPN Telephone ([facility]) ROBY FLORES ([id number]) 1935 M Date Time Provider Department 11/18/23 CORETTA JALLOH During your visit today, we recorded the following information about you: Coretta Jalloh [facility] 11/18/2023 4:37 PM Signed [facility]ulatory Pharmacy Anticoagulation Clinic Anticoagulation Episode Summary Anticoagulation Care Providers Provider Role Specialty Phone number Stas Mora MD Referring Family Medicine [phone] Roby Flores is a 88 year old [...] ALLERGIES No Known Allergies 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 Coretta Jalloh [facility] Clinical Pharmacist, Pharmacy Anticoagulation Clinic Pharmacy Anticoagulation Clinic Pager: [phone]. 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 care home current use of anticoagulant [Z79.01]09/22/2016 Paroxysmal atrial fibrillation (HCC) [I48.0] 09/22/2016 Hyperlipidemia [E78.5] 08/26/2022 Encounter Status:Closed by CORETTA JALLOH on 11/18/23 Normal [facility] PT panel Coag (PPP)on 2023 INR Coag (PPP) [Relative time] 1.8 {INR} High 0.9-1.3 [facility] Comment on above: Order Comment: Stone parmar Type: BLOOD SPECIMENOrdering Facility: [facility] Address: [address] [place] [address] Result Comment: Mary min K Antagonist (VKA) Therapeutic Range: INR 2 to 3 (Target INR of 2.5) Note: For patients treated with VKA drugs, such as warfarin, the Citizen Of [place] [employer] 2012 Guideline recommends [...] 70: 252-289 Performed By: #### 3 4528-0 ####[facility] LABCLIA [id number] [place] [address] [place] PT Coag (PPP) [Time] 18.6 s High 9.7-13.0 [facility] Comment on above: Order Comment: Stone parmar Type: BLOOD SPECIMENOrdering Facility: [facility] Address: [address], [place] [address] Performed By: #### 3 4528-0 ####[facility] SHADE [id number] [address] [place] [id number] [id number] [place] CNPMarizol 10-14-2023 CNPN Telephone (PHAMTE) ROBY FLORES ([id number]) 1935 M Date Time Provider Department 10/14/23 CORETTA JALLOH During your visit today, we recorded the following information about you: Coretta Jalloh [facility] 10/14/2023 4:24 PM Signed [facility]ulatory Pharmacy Anticoagulation Clinic Anticoagulation Episode Summary Anticoagulation Care Providers Provider Role Specialty Phone number Stas Mora MD Referring Family Medicine [phone] Roby Flores is a 88 year old [...] ALLERGIES No Known Allergies 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 Coretta Jalloh [facility] Clinical Pharmacist, Pharmacy Anticoagulation Clinic Pharmacy Anticoagulation Clinic Pager: [phone]. Coretta Jalloh RPh 11/11/2023 2:23 PM Signed Patient was due to test INR today at the lab -will continue to monitor for results. 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 care home current use of anticoagulant [Z79.01]09/22/2016 Paroxysmal atrial fibrillation (HCC) [I48.0] 09/22/2016 Hyperlipidemia [E78.5] 08/26/2022 Encounter Status:Closed by CORETTA JALLOH on 10/14/23 Normal [facility] PT panel Coag (PPP)on 2023 INR Coag (PPP) [Relative time] 2.3 {INR} High 0.9-1.3 [facility] Comment on above: Order Comment: Speci men Type: BLOOD SPECIMENOrdering Facility: [facility] Address: [address] [place], [place] [address] Result Comment: Mary min K Antagonist (VKA) Therapeutic Range: INR 2 to 3 (Target INR of 2.5) Note: For patients treated with VKA drugs, such as warfarin, the Citizen Of [place] [employer] 2012 Guideline recommends [...] 2.5 to 3.5 (target INR of 3). Guyatt GH, et al. Chest 2012, 141:7S-47S Avel CARDONA, et al. [facility] 2017, 70: 252-289 Performed By: #### 3 4528-0 ####[facility] [id number] [place] [address] [place] PT Coag (PPP) [Time] 23.0 s High 9.7-13.0 [facility] Comment on above: Order Comment: Speci men Type: BLOOD SPECIMENOrdering Facility: [facility] Address: [address] [place] [address] Performed By: #### 3 4528-0 ####[facility] [id number] [address] [place] CBC W Auto Differential pane l (Bld)on 06-04-2023 Basophils (Bld) [#/Vol] 0.06 10*3/uL <0.11 k/uL [facility] Basophils/100 WBC (Bld) 0.9 % [facility] Differential cell count method Nom (Bld) Auto [facility] Eosinophils (Bld) [#/Vol] 0.16 10*3/uL <0.46 k/uL [facility] Eosinophils/100 WBC (Bld) 2.4 % [facility] Erythrocyte distribution width (RBC) [Ratio] 15.7 % High 11.5 - 15.0 % [facility] Hematocrit (Bld) [Volume fraction] 34.9 % Low 39.0 - 51.0 % [facility] Hemoglobin (Bld) [Mass/Vol] 10.0 g/dL Low 13.0 - 17.0 g/dL [facility] Immature granulocytes (Bld) [#/Vol] <0.10 k/uL [facility] Immature granulocytes/100 WBC (Bld) 0.3 % [facility] Lymphocytes (Bld) [#/Vol] 1.65 10*3/uL 1.00 - 4.00 k/uL [facility] Lymphocytes/100 WBC (Bld) 24.8 % [facility] MCH (RBC) [Entitic mass] 20.9 pg Low 26.0 - 34.0 pg [facility] MCHC (RBC) [Mass/Vol] 28.7 g/dL Low 30.5 - 36.0 g/dL [facility] MCV (RBC) [Entitic vol] 73.0 fL Low 80.0 - 100.0 fL [facility] Monocytes (Bld) [#/Vol] 0.61 10*3/uL <0.87 k/uL [facility] Monocytes/100 WBC (Bld) 9.2 % [facility] Neutrophils (Bld) [#/Vol] 4.16 10*3/uL 1.45 - 7.50 k/uL [facility] Neutrophils/100 WBC (Bld) 62.4 % [facility] Nucleated RBC (Bld) [#/Vol] <0.01 k/uL [facility] Nucleated RBC/100 WBC (Bld) [Ratio] 0.0 /100 WBC [facility] Platelet mean volume (Bld) [Entitic vol] 10.7 fL 9.0 - 12.7 fL [facility] Platelets (Bld) [#/Vol] 297 10*3/uL 150 - 400 k/uL [facility] RBC (Bld) [#/Vol] 4.78 10*6/uL 4.20 - 6.00 m/uL [facility] WBC (Bld) [#/Vol] 6.66 10*3/uL 3.70 - 11.00 k/uL [facility] MRI BRAIN WO IVCONon 02-17-2 023 [facility] Absolute lymphocyte countOrd ered By: Brian Cunningham on 02-10-2023 Lymphocytes Auto (Unsp spec) [#/Vol] 0.99 10*3/uL 0.83-4.51 [facility] Basophil percentageOrdered B y: Brian Cunningham on 02-10-2023 Basophil percentage 0-5 SEEN /hpf 0-5 [facility] Basophils/100 WBC (Bld) 0.8 % 0-1 [facility] Chloride [Moles/Vol] 108 mmol/L 98-107 [facility] Eosinophils/100 WBC (Bld) 0.4 % 0-5 [facility] Glucose [Mass/Vol] 117 mg/dL 74-106 [facility] Comment on above: Fasting Glucose resu lt from 100 to 125 mg/dL suggests IMPAIRED HOMEOSTASIS per A.D.A. criteria. Neutrophils (Bld) [#/Vol] 5.8 10*3/uL 2.0-7.7 [facility] Neutrophils/100 WBC (Bld) 77.9 % 47-70 [facility] Potassium [Moles/Vol] 4.0 mmol/L 3.5-5.1 [facility] Sodium [Moles/Vol] 140 mmol/L 136-145 [facility] WBC (Bld) [#/Vol] 7.5 10*3/uL 4.4-11.0 [facility] Bilirubin Test strip Ql (U)O rdered By: Brian Cunningham on 02-10-2023 Bilirubin Ql (U) 1 mg/dL Negative [facility] Comment on above: COLOR OF URINE MAY A FFECT DIPSTICK RESULTS. Blood erythrocytes count (nu mber/volume)Ordered By: Brian Cunningham on 02-10-2023 RBC (Bld) [#/Vol] 4.42 10*6/uL 4.6-6.2 [facility] Blood hemoglobin measurement (mass/volume)Ordered By: Brian Cunningham on 02-10-2023 Hemoglobin (Bld) [Mass/Vol] 10.6 g/dL 13.0-16.5 [facility] Blood lymphocytes/100 leukoc ytesOrdered By: Brian Cunningham on 02-10-2023 Lymphocytes/100 WBC (Bld) 13.3 % 19-41 [facility] Blood monocytes/100 leukocyt esOrdered By: Brian Cunningham on 02-10-2023 Monocytes/100 WBC (Bld) 7.2 % 0-10 [facility] Blood platelet mean volumeOr dered By: Brian Cunningham on 02-10-2023 Platelet mean volume (Bld) [Entitic vol] 9.9 fL 6.2-12.0 [facility] Determination of erythrocyte mean corpuscular volume (MCV)Ordered By: Brian Cunningham on 02-10-2023 MCV (RBC) [Entitic vol] 81.9 fL 80-94 [facility] Hematocrit Auto (Bld) [Volum e fraction]Ordered By: Brian Cunningham on 02-10-2023 Hematocrit (Bld) [Volume fraction] 36.2 % 40-54 [facility] INR in Blood by Coagulation assayOrdered By: Brian Cunningham on 02-10-2023 INR Coag (Bld) [Relative time] 1.2 {INR} [facility] Influenza virus A and B and SARS-CoV-2 (COVID-19) Ag panel - Upper respiratory specimOrdered By: Brian Cunningham on 02-10-2023 SARS-CoV-2 (COVID-19) RNA LOLI+probe Ql (Resp) [facility] Ketones Test strip Ql (U)Ord ered By: Brian Cunningham on 02-10-2023 Ketones Ql (U) 5 mg/dl Negative [facility] Laboratory - Chemistry and C hemistry - challengeOrdered By: Brian Cunningham on 02-10-2023 CO2 [Moles/Vol] 30.0 mmol/L 21.0-32.0 [facility] Urea nitrogen/Creatinine [Mass ratio] 23.8 mg/mg 10-20 [facility] Laboratory - CoagulationOrde red By: Brian Cunningham on 02-10-2023 aPTT Coag (Bld) [Time] 26.3 s 24.1-36.2 [facility] PT Coag (PPP) [Time] 15.6 s 11.7-14.9 [facility] Laboratory - Hematology and Cell countsOrdered By: Brian Cunningham on 02-10-2023 Erythrocyte distribution width (RBC) [Entitic vol] 41.8 fL 35.1-43.9 [facility] Erythrocyte distribution width (RBC) [Ratio] 14.1 % 11.6-14.6 [facility] Immature granulocytes/100 WBC (Bld) 0.400 % 0.0-0.9 [facility] Comment on above: IG% - Immature Granu locytes (promyelocytes, myelocytes and metamyelocytes) > 1% indicates that a LEFT SHIFT is Present. MCH (RBC) [Entitic mass] 24.0 pg 27.0-32.0 [facility] Nucleated RBC/100 WBC (Bld) [Ratio] 0 % 0-5 [facility] MCHC Auto (RBC) [Mass/Vol]Or dered By: Brian Cunningham on 02-10-2023 MCHC (RBC) [Mass/Vol] 29.3 g/dL 32-36 [facility] Mucus LM Ql (Urine sed)Order ed By: Brian Cunningham on 02-10-2023 Mucus Ql (Urine sed) 0 SEEN /hpf [facility] Nitrite Test strip Ql (U)Ord ered By: Brian Cunningham on 02-10-2023 Nitrite Ql (U) Negative Negative [facility] No Panel InformationOrdered By: Brian Cunningham on 02-10-2023 Estimated Creatinine Clearance Calc 68.37 ml/min [facility] Estimated GFR (MDRD) Amer 118 mL/min >60 [facility] Comment on above: GFR Calc Estimated GFR (MDRD) Non-Af Amer 97 mL/min >60 [facility] Comment on above: Non- GFR Calc Troponin I High Sensitivity 16 pg/mL 3.0-78.0 [facility] Comment on above: Please Note: New [place] t Units and Gender Specific Reference Ranges. For more information see Policy Stat Procedure [place] High Sensitivity Troponin (TNIH) and attachments. Platelets bldOrdered By: Caitlyn Cunningham on 02-10-2023 Platelets (Bld) [#/Vol] 328 10*3/uL 150-450 [facility] Protein Test strip Ql (U)Ord ered By: Brian Cunningham on 02-10-2023 Protein Ql (U) 15 mg/dl Negative [facility] Serum or plasma calcium alvaro urement (mass/volume)Ordered By: Brian Cunningham on 02-10-2023 Calcium [Mass/Vol] 8.9 mg/dL 8.5-10.1 [facility] Serum or plasma creatinine m easurement (mass/volume)Ordered By: Brian Cunningham on 02-10-2023 Creatinine [Mass/Vol] 0.80 mg/dL 0.70-1.30 [facility] Comment on above: The validity of the calculated GFR & GFRAA in patients over 70 years has not been determined. Clinical correlation is essential. Serum or plasma urea nitroge n measurement (mass/volume)Ordered By: Brian Cunningham on 02-10-2023 Urea nitrogen [Mass/Vol] 19 mg/dL 7-18 [facility] Squamous epithelial cells de tection in urine sediment by light microscopyOrdered By: Brian Cunningham on 02-10-2023 Epithelial cells.squamous LM Ql (Urine sed) 0 SEEN /hpf 0-5 [facility] Thin prep Papanicolaou smear with manual screeningOrdered By: Brian Cunningham on 02-10-2023 Thin prep Papanicolaou smear with manual screening 2 5-15 [facility] Urine blood detectionOrdered By: Brian Cunningham on 02-10-2023 RBC Ql (U) Negative Negative [facility] RBC Ql (U) 0 SEEN /hpf 0-5 [facility] Urine clarityOrdered By: Caitlyn Cunningham on 02-10-2023 Clarity (U) Clear Clear [facility] Urine color determinationOrd ered By: Brian Cunningham on 02-10-2023 Color (U) Yellow Yellow [facility] Urine glucose detectionOrder ed By: Brian Cunningham on 02-10-2023 Glucose Ql (U) Normal mg/dl Normal [facility] Urine leukocyte esterase det ection by dipstickOrdered By: Brian Cunningham on 02-10-2023 Leukocyte esterase Test strip Ql (U) 25 /ul Negative [facility] Urine pHOrdered By: Brian swain on 02-10-2023 pH (U) 6.5 [pH] 5.0 - 8.0 [facility] Urine sediment bacteria coun t by microscopy (number/high power field)Ordered By: rBian Cunningham on 02-10-2023 Bacteria LM.HPF (Urine sed) [#/Area] 0 /[HPF] None Seen [facility] Urine specific gravity measu rementOrdered By: Brian Cunningham on 02-10-2023 Specific gravity (U) [Rel density] 1.015 1.002-1.03 0 [facility] Urobilinogen Auto test strip Ql (U)Ordered By: Brian Cunningham on 02-10-2023 Urobilinogen Ql (U) 4 mg/dl Normal [facility] CT HEAD OR BRAIN W/O CONTRAS Ton [...] Silvestre Chaudhari MD Preliminary Report By: Silvestre Chaduhari MD Electronically signed By Silvestre Chaudhari MD Dictated Date: 11/17/2022 4:24:43 PM Prelim Date: 11/17/2022 4:26:20 PM Sign Date: 11/17/2022 4:26:20 PM Ordering Provider: STERLING LYNCH [facility] XR Pelvis and Hip - left AP and Lateral frogon 05-21-2022 IMPRESSION: No acute fracture or hip dislocation Retail Warehouse Associate: EDUAR Transcribe Date/Time: May 21 2022 3:41P Dictated by : JUDY MCKENZIE MD This examination was interpreted and the report reviewed and electronically signed by: JUDY MCKENZIE MD on May 21 2022 3:43PM [facility] DIVISION OF RADIOLOGY * * *Final Report* [...] Small acetabular osteophytes. DIVISION OF RADIOLOGY [facility]22 * * *Final Report* * [...] IMPRESSION: No acute fracture or hip dislocation Retail Warehouse Associate: PSCB Transcribe Date/Time: May 21 2022 3:41P Dictated by : JUDY MCKENZIE MD This examination was interpreted and the report reviewed and electronically signed by: JUDY MCKENZIE MD on May 21 2022 3:43PM EST [facility] Radiology Study observation (narrative) [facility] XR Pelvis and Hip - left AP and Lateral frogOrdered By: Ccf Provider on 05-21-2022 [facility] PT panel Coag (PPP)on 2022 INR Coag (Bld) [Relative time] 1.7 {INR} [facility] Basophil percentageon 2021 Cholesterol [Mass/Vol] 152 mg/dL <200 [facility] Work Phone: Comment on above: <200 mg/dL Desirable 200-240 mg/dL Borderline >240 mg/dL High Risk Triglyceride [Mass/Vol] 76 mg/dL <199 [facility] Work Phone: Comment on above: The drugs N-Acetylcy steine and Metamizole may falsely depress this assay.Serum Triglycerides Reference Interval Normal <150 mg/dL Borderline high 150 - 199 mg/dL High 200 - 499 mg/dL Very High > or = 500 mg/dL INR in Blood by Coagulation assayon 12-22-2021 INR Coag (Bld) [Relative time] 2.5 {INR} [facility] Work Phone: Laboratory - Chemistry and C hemistry - challengeon 12-22-2021 Magnesium [Mass/Vol] 2.1 mg/dL 1.6-2.6 [facility] Work Phone: Laboratory - Coagulationon 1 PT Coag (PPP) [Time] 27.0 s 11.7-14.9 [facility] Work Phone: No Panel Informationon 12-22 Thyroid Stimulating Hormone (TSH) 0.42 uIU/mL 0.358-3.74 [facility] Work Phone: Serum or plasma cholesterol in HDL measurement (mass/volume)on 12-22-2021 Cholesterol in HDL [Mass/Vol] 35 mg/dL >40 [facility] Work Phone: Comment on above: The drugs N-Acetylcy steine and Metamizole may falsely depress this assay. Reference Range HDL <40 mg/dL Low HDL Cholesterol HDL >or= 60 mg/dL High HDL Cholesterol Serum or plasma cholesterol in VLDL measurement (mass/volume)on 12-22-2021 Cholesterol in VLDL [Mass/Vol] 15 mg/dL 5-40 [facility] Work Phone: Serum or plasma low density lipoprotein (LDL) cholesterol measurement (mass/volume)on 12-22-2021 Cholesterol in LDL [Mass/Vol] 102 mg/dL 0-130 [facility] Work Phone: Whole blood hemoglobin A1c/t otal hemoglobin ratio (mass fraction)on 12-22-2021 HbA1c (Bld) [Mass fraction] 5.9 % 3.8-5.6 [facility] Work Phone: Comment on above: Normal < 5.7 % Predi abetic 5.7 - 6.4 % Diabetic >or= 6.5 % Please note range changes. Absolute lymphocyte counton 12-21-2021 Lymphocytes Auto (Unsp spec) [#/Vol] 1.23 10*3/uL 0.83-4.51 [facility] Work Phone: Basophil percentageon 2021 Basophils/100 WBC (Bld) 0.4 % 0-1 [facility] Work Phone: Chloride [Moles/Vol] 106 mmol/L 98-107 [facility] Work Phone: [phone] Eosinophils/100 WBC (Bld) 1.4 % 0-5 [facility] Work Phone: Glucose [Mass/Vol] 107 mg/dL 74-106 [facility] Work Phone: Comment on above: Fasting Glucose resu lt from 100 to 125 mg/dL suggests IMPAIRED HOMEOSTASIS per A.D.A. criteria. Neutrophils (Bld) [#/Vol] 5.7 10*3/uL 2.0-7.7 [facility] Work Phone: [phone] Neutrophils/100 WBC (Bld) 72.4 % 47-70 [facility] Work Phone: Potassium [Moles/Vol] 3.7 mmol/L 3.5-5.1 [facility] Work Phone: Sodium [Moles/Vol] 141 mmol/L 136-145 [facility] Work Phone: WBC (Bld) [#/Vol] 7.9 10*3/uL 4.4-11.0 [facility] Work Phone: Blood erythrocytes count (nu mber/volume)on 12-21-2021 RBC (Bld) [#/Vol] 4.85 10*6/uL 4.6-6.2 [facility] Work Phone: Blood hemoglobin measurement (mass/volume)on 12-21-2021 Hemoglobin (Bld) [Mass/Vol] 14.5 g/dL 13.0-16.5 [facility] Work Phone: [phone] Blood lymphocytes/100 leukoc yteson 12-21-2021 Lymphocytes/100 WBC (Bld) 15.5 % 19-41 [facility] Work Phone: Blood monocytes/100 leukocyt eson 12-21-2021 Monocytes/100 WBC (Bld) 9.9 % 0-10 [facility] Work Phone: Blood platelet mean volumeon 12-21-2021 Platelet mean volume (Bld) [Entitic vol] 10.2 fL 6.2-12.0 [facility] Work Phone: Determination of erythrocyte mean corpuscular volume (MCV)on 12-21-2021 MCV (RBC) [Entitic vol] 92.0 fL 80-94 [facility] Work Phone: Hematocrit Auto (Bld) [Volum e fraction]on 12-21-2021 Hematocrit (Bld) [Volume fraction] 44.6 % 40-54 [facility] Work Phone: INR in Blood by Coagulation assayon 12-21-2021 INR Coag (Bld) [Relative time] 2.3 {INR} [facility] Work Phone: Laboratory - Chemistry and C hemistry - challengeon 12-21-2021 CO2 [Moles/Vol] 29.0 mmol/L 21.0-32.0 [facility] Work Phone: Urea nitrogen/Creatinine [Mass ratio] 21.8 mg/mg 10-20 [facility] Work Phone: Laboratory - Coagulationon 1 aPTT Coag (Bld) [Time] 36.6 s 24.1-36.2 [facility] Work Phone: PT Coag (PPP) [Time] 24.7 s 11.7-14.9 [facility] Work Phone: Laboratory - Hematology and Cell countson 12-21-2021 Erythrocyte distribution width (RBC) [Entitic vol] 42.2 fL 35.1-43.9 [facility] Work Phone: Erythrocyte distribution width (RBC) [Ratio] 12.5 % 11.6-14.6 [facility] Work Phone: Immature granulocytes/100 WBC (Bld) 0.400 % 0.0-0.9 [facility] Work Phone: Comment on above: IG% - Immature Granu locytes (promyelocytes, myelocytes and metamyelocytes) > 1% indicates that a LEFT SHIFT is Present. MCH (RBC) [Entitic mass] 29.9 pg 27.0-32.0 [facility] Work Phone: Nucleated RBC/100 WBC (Bld) [Ratio] 0 % 0-5 [facility] Work Phone: MCHC Auto (RBC) [Mass/Vol]on 12-21-2021 MCHC (RBC) [Mass/Vol] 32.5 g/dL 32-36 [facility] Work Phone: No Panel Informationon 12-21 Estimated Creatinine Clearance Calc 66.90 ml/min [facility] Work Phone: Estimated GFR (MDRD) Amer 107 mL/min >60 [facility] Work Phone: Comment on above: GFR Calc Estimated GFR (MDRD) Non-Af Amer 88 mL/min >60 [facility] Work Phone: Comment on above: Non- GFR Calc Troponin I High Sensitivity 13 pg/mL 3.0-78.0 [facility] Work Phone: Comment on above: Please Note: New Hiwot t Units and Gender Specific Reference Ranges. For more information see Policy Stat Procedure [place] High Sensitivity Troponin (TNIH) and attachments. Platelets bldon 12-21-2021 Platelets (Bld) [#/Vol] 241 10*3/uL 150-450 [facility] Work Phone: Serum or plasma calcium alvaro urement (mass/volume)on 12-21-2021 Calcium [Mass/Vol] 9.2 mg/dL 8.5-10.1 [facility] Work Phone: Serum or plasma creatinine m easurement (mass/volume)on 12-21-2021 Creatinine [Mass/Vol] 0.87 mg/dL 0.70-1.30 [facility] Work Phone: Comment on above: The validity of the calculated GFR & GFRAA in patients over 70 years has not been determined. Clinical correlation is essential. Serum or plasma urea nitroge n measurement (mass/volume)on 12-21-2021 Urea nitrogen [Mass/Vol] 19 mg/dL 7-18 [facility] Work Phone: Thin prep Papanicolaou smear with manual screeningon 12-21-2021 Thin prep Papanicolaou smear with manual screening 08-04 [facility] Work Phone: CBC panel Auto (Bld)on 07-08 Erythrocyte distribution width (RBC) [Ratio] 13.1 % 11.5 - 15.0 % [facility] Hematocrit (Bld) [Volume fraction] 49.5 % 39.0 - 51.0 % [facility] Hemoglobin (Bld) [Mass/Vol] 15.9 g/dL 13.0 - 17.0 g/dL [facility] MCH (RBC) [Entitic mass] 29.6 pg 26.0 - 34.0 pg [facility] MCHC (RBC) [Mass/Vol] 32.1 g/dL 30.5 - 36.0 g/dL [facility] MCV (RBC) [Entitic vol] 92.2 fL 80.0 - 100.0 fL [facility] Nucleated RBC (Bld) [#/Vol] 10*3/uL <0.01 k/uL [facility] Platelet mean volume (Bld) [Entitic vol] 10.7 fL 9.0 - 12.7 fL [facility] Platelets (Bld) [#/Vol] 235 10*3/uL 150 - 400 k/uL [facility] RBC (Bld) [#/Vol] 5.37 10*6/uL 4.20 - 6.00 m/uL [facility] WBC (Bld) [#/Vol] 10.33 10*3/uL 3.70 - 11.00 k/uL [facility] XR Lumbar spine 3 Viewson IMPRESSION: 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 Retail Warehouse Associate: PSCB Transcribe Date/Time: Mar 13 2020 8:34A Dictated by : GABRIELLE BENTLEY MD This examination was interpreted and the report reviewed and electronically signed by: GABRIELLE BENTLEY MD on Mar 13 2020 8:35AM [facility] DIVISION OF RADIOLOGY * * *Final Report* [...] spine are presented. FINDINGS: There are five wjz-exm-tkfuhci lumbar vertebrae. No fracture or subluxations are noted. L5-S1 disc space narrowing is demonstrated. There is significant osteophyte formation. Kissing spine seen on lateral view. DIVISION OF RADIOLOGY Provider, [facility] - 03/13/2020 * * *Final Report* * [...] spine are presented. FINDINGS: There are five mzr-mxx-psgefbn lumbar vertebrae. No fracture or subluxations are noted. L5-S1 disc space narrowing is demonstrated. There is significant osteophyte formation. Kissing spine seen on lateral view. 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 Retail Warehouse Associate: PSCB Transcribe Date/Time: Mar 13 2020 8:34A Dictated by : GABRIELLE BENTLEY MD This examination was interpreted and the report reviewed and electronically signed by: GABRIELLE BENTLEY MD on Mar 13 2020 8:35AM EST [facility] XR Lumbar spine 3 ViewsOrder ed By: [facility] Provider on 03-13-2020 [facility] XR Lumbar spine 3 Viewson Radiology Study observation (narrative) [facility] PROGRESSon 06-09-2017 PROGRESS HNO ID: [id number] Author: Vesta Marin PSR Service: (none) Author Type: (none) Type: Progress Notes Filed: 06/09/2017 4:13 PM Note Text: Spoke with the patient and scheduled his Corotid Doppler on June 24, 2017 at 9:00 am Normal [facility] CNOVon 06-02-2017 CNOV Office Visit (AGCARDWST) -------ROBY FLORES ([id number]) 1935 MDate Time Provider Department06/02/17 9:00 AM DARRELL OLIVEIRA AGCARDWST During your visit today, we recorded the following information about you: Pulse Blood pressure Weight 70/minute 116/67 79.5 kgDarrell Oliveira MD 06/02/2017 9:31 AM SignedPERTINENT CARDIAC HISTORYASHD - PCI LAD 2003HTNHLCarotid diseaseSyncopePAFADHERENCE TO GUIDELINESACE-I or ARB for HF with prior LVEFANDlt;40 (NQF 0081) - N/AASA or Plavix for ASHD (NQF 0067) - METBeta jazmin for ASHD with prior ID or prior LVEFANDlt;40 (NQF 0070) - N/ABeta [...] weeks.He will be getting labs from the [facility] in the near future and I've askedfor a copy.INR has been within range. He is due today.I will see him in 8 months or as needed. If there is increased chest pain orrecurrent syncope, he has been advised to contact me.Written and verbal health teaching given to patient, patient verbalizesunderstanding and agrees with treatment plan.This note was generated using [email or web address] voice recognition system, and there may besome incorrect words, spellings, and punctuation that were not noted inchecking the note before saving.DIAGNOSIS FOR VISIT:ASHDHypertensionHISTOR Y OF PRESENT ILLNESSRoby Flores returns for follow-up of multiple cardiac [...] ectopics. There is no significantchange.Electronic ally Signed:Darrell Oliveira, [facility] 2017 9:15 [facility]: Carmen Vasquez MD 06/02/2017 9:21 AM AddendumDecrease [...] Corotid Doppler on June 24, 2017 at9:00 amReferring Provider: DARRELL OLIVEIRA [[id number]]Allergies As of Date: 06/02/2017(No Known Allergies)Date Reviewed: 06/02/2017Reviewed by: Russell ([facility]) Anabella - Fully AssessedReason for Visit: Recheck [92]Primary Visit Diagnosis:ASHD (arteriosclerotic heart disease) [I25.10] Other Visit Diagnosis:PAF (paroxysmal atrial fibrillation) (HCC) [I48.0]Order(s):ECG B/O W INTERP (MED OFFICE) [ECG06] Order #: [id number] Fosinopril Sodium 40 mg tabletTake 1/2 tablet [...] FOR* 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 Please give serious thought to the following areas and commit to making retirement changes. EAT A WHOLE FOOD, PLANT BASED [...] way you eat. This is not a "diet". It is a way of life that [...] on file. Cosign accepted by STAS MORA MD[[id number]] on 09/30/2016 2:01 PM Fosinopril Sodium 40 [...] on file.Follow-up and Disposition History RecordedEncounter Number: [id number] Status:Closed by DARRELL OLIVEIRA MD on 06/02/17 [facility] PROGRESSon 06-02-2017 PROGRESS HNO ID: [id number] thor: Darrell Stahl: (none)Author Type: PhysicianType: Progress NotesFiled: 06/02/2017 9:31 AMNote Text:PERTINENT CARDIAC HISTORYASHD - PCI LAD 2003HTNHLCarotid diseaseSyncopePAFADHERENCE TO GUIDELINESACE-I or ARB for HF with prior LVEF<40 (NQF 0081) - N/AASA or Plavix for ASHD (NQF 0067) - METBeta jazmin for ASHD with prior ID or prior LVEF<40 (NQF 0070) - N/ABeta [...] weeks.He will be getting labs from the [facility] in the near future and I'veasked for a copy.INR has been within range. He is due today.I will see him in 8 months or as needed. If there is increased chest painor recurrent syncope, he has been advised to contact me.Written and verbal health teaching given to patient, patient verbalizesunderstanding and agrees with treatment plan.This note was generated using [email or web address] voice recognition system, and theremay be some [...] atrial ectopics. 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 Disc: Reason for discontinue is not on file. warfarin (COUMADIN) 2.5 mg tablet 100 * 11 03/02/2017 03/02/2017 Route: ORAL Sig: Take 1 tablet by mouth once daily. Or as directed Disc: Reason for discontinue is not on file. Status:Closed by ELANA HOOD MA on 03/02/17 [facility] OBSOLETEon 01-23-2017 OBSOLETE Refill (AGCARDWST) -------ROBY FLORES ([id number]) 1935 MDate Time Provider Gzaojnnxel52/3/17 DARRELL OLIVEIRA AGCARDWST During your visit today, we recorded the following information about you:Dao Bishop RN, RN 01/23/2017 3:15 PM SignedPatient phones requesting refills as follows:Pending Prescriptions Disp Refills WARFARIN 2.5 MG TABLET 45 tablet 11 Sig: Take 1 tablet by mouth daily as directed. 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 Status:Closed by DAO BISHOP on 01/23/17 [facility] Vital Signs Date Time Vital Sign Value Performing Clinician Facility 09-06-2024 14:15-0400 Body temperature 98 [degF] Dr. Stas Mora MD Work Phone: 1(902)[phone] [place] [address] 09-06-2024 14:15-0400 Diastolic blood pressure 88 mm[Hg] Dr. Stas Mora MD Work Phone: 4(619)830-667196 [place] [address] 09-06-2024 14:15-0400 Heart rate 78 /min Dr. Stas Mora MD Work Phone: 9(168)483-853996 [place] [address] 09-06-2024 14:15-0400 Respiratory rate 18 /min Dr. Stas Mora MD Work Phone: 3(104)773-936296 [place] [address] 09-06-2024 14:15-0400 SaO2% (BldA) [Mass fraction] 97 % Dr. Stas Mora MD Work Phone: 1(944)[phone] [place] [address] 09-06-2024 14:15-0400 Systolic blood pressure 137 mm[Hg] Dr. Stas Mora MD Work Phone: 0(108)211-162596 [place] [address] 09-04-2024 12:05-0400 Inhaled oxygen flow rate 2 L/min Dr. Stas Mora MD Work Phone: 9(891)783-370996 [place] [address] 09-01-2024 11:52-0400 Body height 182.[address] Stas Mora MD Work Phone: 6(431)173-669296 [place] [address] 09-01-2024 11:52-0400 Body mass index (BMI) [Ratio] 21.6 kg/m2 Dr. Stas Mora MD Work Phone: 2(078)672-103696 [place] [address] 09-01-2024 11:52-0400 Body weight 72.[address] Stas Mora MD Work Phone: 0(376)051-399396 [place] [address] 09-01-2024 11:00-0400 Diastolic blood pressure 79 mm[Hg] Dr. Stas Mora MD Work Phone: 6(572)921-335596 [place] [address] 09-01-2024 11:00-0400 Heart rate 70 /min Dr. Stas Mora MD Work Phone: 4(867)843-283496 [place] [address] 09-01-2024 11:00-0400 Respiratory rate 18 /min Dr. Stas Mora MD Work Phone: 9(679)816-731096 [place] [address] 09-01-2024 11:00-0400 SaO2% (BldA) [Mass fraction] 98 % Dr. Stas Mora MD Work Phone: 5(581)241-890196 [place] [address] 09-01-2024 11:00-0400 Systolic blood pressure 180 mm[Hg] Dr. Stas Mora MD Work Phone: 7(012)046-553096 [place] [address] 09-01-2024 09:52-0400 Body temperature 98.9 [degF] Dr. Stas Mora MD Work Phone: 8(365)182-838396 [place] [address] 09-01-2024 07:31-0400 Body height 182.[address] Stas Mora MD Work Phone: 7(895)335-240896 [place] [address] 09-01-2024 07:31-0400 Body mass index (BMI) [Ratio] 23.4 kg/m2 Dr. Stas Mora MD Work Phone: 7(660)210-253096 [place] [address] 09-01-2024 07:31-0400 Body weight 78.[address] Stas Mora MD Work Phone: 3(470)288-646796 [place] [address] 08-31-2024 11:05-0400 Body mass index (BMI) [Ratio] 22.35 kg/m2 Luciana Cisneros MD Work Phone: [facility] 08-31-2024 11:05-0400 Body weight 73.94 kg Luciana Cisneros MD Work Phone: [facility] 08-31-2024 11:05-0400 Diastolic blood pressure 74 mm[Hg] Luciana Cisneros MD Work Phone: [facility] 08-31-2024 11:05-0400 Heart rate 74 /min Luciana Cisneros MD Work Phone: [facility] 08-31-2024 11:05-0400 Respiratory rate 12 /min Luciana Cisneros MD Work Phone: [facility] 08-31-2024 11:05-0400 SaO2% (BldA) [Mass fraction] 98 % Luciana Cisneros MD Work Phone: [facility] 08-31-2024 11:05-0400 Systolic blood pressure 124 mm[Hg] Luciana Cisneros MD Work Phone: [facility] 07-28-2024 11:12-0400 Diastolic blood pressure 78 mm[Hg] Stas Mora MD Work Phone: [facility] 07-28-2024 11:12-0400 Systolic blood pressure 136 mm[Hg] Stas Mora MD Work Phone: [facility] 07-28-2024 11:10-0400 Body mass index (BMI) [Ratio] 22.4 kg/m2 Stas Mora MD Work Phone: [facility] 07-28-2024 11:10-0400 Body weight 74.1 kg Stas Mora MD Work Phone: [facility] 07-28-2024 11:10-0400 Heart rate 56 /min Stas Mora MD Work Phone: [facility] 07-28-2024 11:10-0400 Respiratory rate 16 /min Stas Mora MD Work Phone: [facility] 06-01-2024 14:52-0400 Body height 181.9 cm Luciana Cisneros MD Work Phone: [facility] 06-01-2024 14:52-0400 Body mass index (BMI) [Ratio] 22.33 kg/m2 Luciana Cisneros MD Work Phone: [facility] 06-01-2024 14:52-0400 Body weight 73.85 kg Luciana Cisneros MD Work Phone: [facility] 06-01-2024 14:52-0400 Diastolic blood pressure 60 mm[Hg] Luciana Cisneros MD Work Phone: [facility] 06-01-2024 14:52-0400 Heart rate 46 /min Luciana Cisneros MD Work Phone: [facility] 06-01-2024 14:52-0400 SaO2% (BldA) [Mass fraction] 98 % Luciana Cisneros MD Work Phone: [facility] 06-01-2024 14:52-0400 Systolic blood pressure 132 mm[Hg] Luciana Cisneros MD Work Phone: [facility] 05-26-2024 09:18-0500 Diastolic blood pressure 82 mm[Hg] Stas Mora MD Work Phone: [facility] 05-26-2024 09:18-0500 Systolic blood pressure 144 mm[Hg] Stas Mora MD Work Phone: [facility] 05-26-2024 09:06-0500 Body mass index (BMI) [Ratio] 22.19 kg/m2 Stas Mora MD Work Phone: [facility] 05-26-2024 09:06-0500 Body weight 73.5 kg Stas Mora MD Work Phone: [facility] 05-26-2024 09:06-0500 Heart rate 56 /min Stas Mora MD Work Phone: [facility] 05-26-2024 09:06-0500 Respiratory rate 18 /min Stas Mora MD Work Phone: [facility] 04-27-2024 09:34-0500 Body height 182 cm Luciana Cisneros MD Work Phone: [facility] 04-27-2024 09:34-0500 Body mass index (BMI) [Ratio] 22.51 kg/m2 Luciana Cisneros MD Work Phone: [facility] 04-27-2024 09:34-0500 Body weight 74.57 kg Luciana Cisneros MD Work Phone: [facility] 04-27-2024 09:34-0500 Diastolic blood pressure 62 mm[Hg] Luciana Cisneros MD Work Phone: [facility] 04-27-2024 09:34-0500 Heart rate 60 /min Luciana Cisneros MD Work Phone: [facility] 04-27-2024 09:34-0500 SaO2% (BldA) [Mass fraction] 98 % Luciana Cisneros MD Work Phone: [facility] 04-27-2024 09:34-0500 Systolic blood pressure 110 mm[Hg] Luciana Cisneros MD Work Phone: [facility] 11-26-2023 10:33-0400 Diastolic blood pressure 80 mm[Hg] Stas Mora MD Work Phone: [facility] 11-26-2023 10:33-0400 Systolic blood pressure 144 mm[Hg] Stas Mora MD Work Phone: [facility] 11-26-2023 10:22-0400 Body mass index (BMI) [Ratio] 21.95 kg/m2 Stas Mora MD Work Phone: [facility] 11-26-2023 10:22-0400 Body weight 71.4 kg Stas Mora MD Work Phone: [facility] 11-26-2023 10:22-0400 Heart rate 60 /min Stas Mora MD Work Phone: [facility] 11-26-2023 10:22-0400 Respiratory rate 18 /min Stas Mora MD Work Phone: [facility] 09-15-2023 08:38-0400 Body mass index (BMI) [Ratio] 24.52 kg/m2 Stas Mora MD Work Phone: [facility] 09-15-2023 08:38-0400 Body weight 79.74 kg Stas Mora MD Work Phone: [facility] 09-15-2023 08:38-0400 Diastolic blood pressure 84 mm[Hg] Stas Mora MD Work Phone: [facility] 09-15-2023 08:38-0400 Heart rate 76 /min Stas Mora MD Work Phone: [facility] 09-15-2023 08:38-0400 Respiratory rate 18 /min Stas Mora MD Work Phone: [facility] 09-15-2023 08:38-0400 Systolic blood pressure 138 mm[Hg] Stas Mora MD Work Phone: [facility] 08-14-2023 09:57-0400 Body mass index (BMI) [Ratio] 22.59 kg/m2 Stas Mora MD Work Phone: [facility] 08-14-2023 09:57-0400 Body weight 73.48 kg Stas Mora MD Work Phone: [facility] 08-14-2023 09:57-0400 Diastolic blood pressure 80 mm[Hg] Stas Mora MD Work Phone: [facility] 08-14-2023 09:57-0400 Heart rate 64 /min Stas Mora MD Work Phone: [facility] 08-14-2023 09:57-0400 Respiratory rate 14 /min Stas Mora MD Work Phone: [facility] 08-14-2023 09:57-0400 Systolic blood pressure 140 mm[Hg] Stas Mora MD Work Phone: [facility] 06-01-2023 15:08-0400 Body weight 75.75 kg Stas Mora MD Work Phone: [facility] 06-01-2023 15:08-0400 Diastolic blood pressure 90 mm[Hg] Stas Mora MD Work Phone: [facility] 06-01-2023 15:08-0400 Heart rate 82 /min Stas Mora MD Work Phone: [facility] 06-01-2023 15:08-0400 Respiratory rate 16 /min Stas Mora MD Work Phone: [facility] 06-01-2023 15:08-0400 SaO2% (BldA) [Mass fraction] 100 % Stas Mora MD Work Phone: [facility] 06-01-2023 15:08-0400 Systolic blood pressure 140 mm[Hg] Stas Mora MD Work Phone: [facility] 02-16-2023 13:57-0500 Diastolic blood pressure 62 mm[Hg] Stas Mora MD Work Phone: [facility] 02-16-2023 13:57-0500 Heart rate 62 /min Stas Mora MD Work Phone: [facility] 02-16-2023 13:57-0500 Respiratory rate 16 /min Stas Mora MD Work Phone: [facility] 02-16-2023 13:57-0500 Systolic blood pressure 110 mm[Hg] Stas Mora MD Work Phone: [facility] 02-10-2023 16:59-0500 Diastolic blood pressure 68 mm[Hg] [facility] 02-10-2023 16:59-0500 Heart rate 79 /min [facility] 02-10-2023 16:59-0500 Respiratory rate 12 /min [facility] 02-10-2023 16:59-0500 SaO2% (BldA) [Mass fraction] 98 % [facility] 02-10-2023 16:59-0500 Systolic blood pressure 153 mm[Hg] [facility] 02-10-2023 14:37-0500 Body mass index (BMI) [Ratio] 22.1 kg/m2 [facility] 02-10-2023 14:37-0500 Body weight 74.3 kg [facility] 02-10-2023 14:32-0500 Body height 182.88 cm [facility] 02-10-2023 14:32-0500 Body temperature 98 [degF] [facility] 11-17-2022 17:22-0400 Diastolic Blood Pressure Non-Invasive 68 1 STERLING FROMMELT DO [facility] 11-17-2022 17:22-0400 Heart rate 76 /min STERLING FROMMELT DO [facility] 11-17-2022 17:22-0400 Respiratory rate 18 /min STERLING DAIGLET DO [facility] 11-17-2022 17:22-0400 Systolic Blood Pressure Non-Invasive 126 1 STERLING DAIGLET DO [facility] 11-17-2022 15:23-0400 Body height 185.4 cm STERLING DAIGLET DO [facility] 11-17-2022 15:23-0400 Body temperature 97.88 [degF] STERLING DAIGLET DO [facility] 11-17-2022 15:23-0400 Body weight 79.6 kg STERLING DAIGLET DO [facility] 11-17-2022 15:23-0400 Diastolic Blood Pressure Non-Invasive 70 1 STERLING DAIGLET DO [facility] 11-17-2022 15:23-0400 Heart rate 89 /min STERLING DAIGLET DO [facility] 11-17-2022 15:23-0400 Respiratory rate 18 /min STERLING DAIGLET DO [facility] 11-17-2022 15:23-0400 Systolic Blood Pressure Non-Invasive 134 1 STERLING CISNEROSMELT DO [facility] 08-26-2022 13:12-0400 Body height 180.3 cm Stas Mora MD Work Phone: [facility] 08-26-2022 13:12-0400 Body weight 78.74 kg Stas Mora MD Work Phone: [facility] 08-26-2022 13:12-0400 Diastolic blood pressure 74 mm[Hg] Stas Mora MD Work Phone: [facility] 08-26-2022 13:12-0400 Heart rate 66 /min Stas Mora MD Work Phone: [facility] 08-26-2022 13:12-0400 Respiratory rate 16 /min Stas Mora MD Work Phone: [facility] 08-26-2022 13:12-0400 Systolic blood pressure 122 mm[Hg] Stas Mora MD Work Phone: [facility] 12-26-2021 11:22-0400 Body weight 78.56 kg Stas Mora MD Work Phone: [facility] 12-26-2021 11:22-0400 Diastolic blood pressure 80 mm[Hg] Stas Mora MD Work Phone: [facility] 12-26-2021 11:22-0400 Heart rate 58 /min Stas Mora MD Work Phone: [facility] 12-26-2021 11:22-0400 Respiratory rate 16 /min Stas Mora MD Work Phone: [facility] 12-26-2021 11:22-0400 Systolic blood pressure 142 mm[Hg] Stas Mora MD Work Phone: [facility] 12-22-2021 11:13-0400 Body temperature 97.6 [degF] Dr. Stas Mora Work Phone: [facility] Work Phone: 12-22-2021 11:13-0400 Diastolic blood pressure 58 mm[Hg] Dr. Stas Mora Work Phone: [facility] Work Phone: 12-22-2021 11:13-0400 Heart rate 63 /min Dr. Stas Mora Work Phone: [facility] Work Phone: 12-22-2021 11:13-0400 Respiratory rate 16 /min Dr. Stas Mora Work Phone: [facility] Work Phone: 12-22-2021 11:13-0400 SaO2% (BldA) [Mass fraction] 96 % Dr. Stas Mora Work Phone: [facility] Work Phone: 12-22-2021 11:13-0400 Systolic blood pressure 142 mm[Hg] Dr. Stas Mora Work Phone: [facility] Work Phone: 12-21-2021 20:06-0400 Body height 182.[address] Stas Mora Work Phone: [facility] Work Phone: 12-21-2021 20:06-0400 Body mass index (BMI) [Ratio] 22.6 kg/m2 Dr. Stas Mora Work Phone: [facility] Work Phone: 12-21-2021 20:06-0400 Body weight 75.[address] Stas Mora Work Phone: [facility] Work Phone: 12-21-2021 19:15-0400 Diastolic blood pressure 81 mm[Hg] [facility] Work Phone: 12-21-2021 19:15-0400 Heart rate 70 /min [facility] Work Phone: 12-21-2021 19:15-0400 Respiratory rate 18 /min [facility] Work Phone: 12-21-2021 19:15-0400 SaO2% (BldA) [Mass fraction] 96 % [facility] Work Phone: 12-21-2021 19:15-0400 Systolic blood pressure 171 mm[Hg] [facility] Work Phone: 12-21-2021 19:02-0400 Body temperature 97.6 [degF] [facility] Work Phone: 12-21-2021 18:17-0400 Body height 182.88 cm [facility] Work Phone: 12-21-2021 18:17-0400 Body mass index (BMI) [Ratio] 24.2 kg/m2 [facility] Work Phone: 12-21-2021 18:17-0400 Body weight 80.9 kg [facility] Work Phone: 09-05-2021 11:21-0400 Body height 182.9 cm Stas Mora MD Work Phone: [facility] 09-05-2021 11:21-0400 Body weight 80.2 kg Stas Mora MD Work Phone: [facility] 09-05-2021 11:21-0400 Diastolic blood pressure 70 mm[Hg] Stas Mora MD Work Phone: [facility] 09-05-2021 11:21-0400 Heart rate 62 /min Stas Mora MD Work Phone: [facility] 09-05-2021 11:21-0400 Respiratory rate 16 /min Stas Mora MD Work Phone: [facility] 09-05-2021 11:21-0400 Systolic blood pressure 136 mm[Hg] Stas Mora MD Work Phone: [facility] 07-08-2021 10:41-0400 Body weight 83.55 kg Stas Mora MD Work Phone: [facility] 07-08-2021 10:41-0400 Diastolic blood pressure 78 mm[Hg] Stas Mora MD Work Phone: [facility] 07-08-2021 10:41-0400 Heart rate 60 /min Stas Mora MD Work Phone: [facility] 07-08-2021 10:41-0400 Respiratory rate 16 /min Stas Mora MD Work Phone: [facility] 07-08-2021 10:41-0400 Systolic blood pressure 120 mm[Hg] Stas Mora MD Work Phone: [facility] Encounters Encounter Date Encounter Type Care Provider Facility Start: 09-29-2024 ambulatory Efewongbe Oleghe OLS Fa cility:[facility] Start: 09-28-2024 ambulatory Efewongbe Oleghe OLS Fa cility:[facility] Start: 09-26-2024 ambulatory Efewongbe Oleghe OLS Fa cility:[facility] Start: 09-23-2024 ambulatory Efewongbe Oleghe OLS Fa cility:[facility] Start: 09-21-2024 End: 09-22-2024 Telephone encounter Stas Mora MD Work Phone: [facility] Start: 09-21-2024 ambulatory Efewongbe Oleghe OLS Fa cility:[facility] Start: 09-19-2024 ambulatory Efewongbe Oleghe OLS Fa cility:[facility] Start: 09-15-2024 ambulatory Efewongbe Oleghe OLS Fa cility:[facility] Start: 09-14-2024 ambulatory Efewongbe Oleghe OLS Fa cility:[facility] Start: 09-12-2024 ambulatory Efewongbe Oleghe OLS Fa cility:[facility] Start: 09-08-2024 ambulatory Efewongbe Oleghe OLS Fa cility:[facility] Start: 09-07-2024 ambulatory Efewongbe Oleghe OLS Fa cility:[facility] Start: 09-06-2024 Non-patient / Non-visit Dr. Navid Dominguez MD -[facility] Work Phone: Start: 09-05-2024 Non-patient / Non-visit Dr. Navid Dominguez MD -[facility] Work Phone: Start: 09-04-2024 Non-patient / Non-visit Dr. Jia Wells MD -[facility] Work Phone: Start: 09-03-2024 Non-patient / Non-visit Dr. Jia Wells MD -[facility] Work Phone: Start: 09-02-2024 Non-patient / Non-visit Dr. Jia Wells MD -[facility] Work Phone: Start: 09-02-2024 ambulatory Navid Dominguez Facility: [facility] Start: 09-02-2024 End: 09-06-2024 Evaluation and management of inpatient Dr. Navid Dominguez MD -[facility] Work Phone: Start: 09-01-2024 End: 09-01-2024 Telephone encounter Russell Glendora [facility] Work Phone: [facility] Comment on above: Medication Problem ( Cost) Start: 09-01-2024 ambulatory Kathy Wells Facility :[facility] Start: 09-01-2024 Evaluation and management of inpatient Dr. Kathy Wells MD -[facility] Work Phone: Start: 09-01-2024 Non-patient / Non-visit Dr. Jia Wells MD -[facility] Work Phone: Start: 09-01-[address] Stas Mora MD Work Phone: [facility] Work Phone: Start: 08-31-2024 End: 08-31-2024 Telephone encounter Coretta Jalloh [facility] Telemanagement Comment on above: Anticoagulation Tele phone Fu (Home INR result ) Start: 08-31-2024 End: 08-31-2024 ambulatory STAS MORA Facility:[facility] Start: 08-31-2024 End: 08-31-2024 Office outpatient visit 25 minutes Luciana Cisneros MD Work Phone: Geriatrics Comment on above: Moderate dementia wi thout behavioral disturbance, psychotic disturbance, mood disturbance, or anxiety, unspecified dementia type (HCC) (Primary Dx); Hallucinations; Screening for depression; Encounter for screening examination for other mental health and behavioral disorders Start: 08-31-2024 End: 08-31-2024 ambulatory [facility] Facility:[facility] Start: 08-03-2024 End: 08-03-2024 Telephone encounter Coretta Jalloh [facility] Tele[facility] Comment on above: Anticoagulation Tele phone Fu (Lab INR result) Start: 08-03-2024 End: 08-03-2024 ambulatory [facility] Facility:[facility] Start: 07-28-2024 End: 07-28-2024 Office outpatient visit 15 minutes Stas Mora MD Work Phone: [facility] [place] Comment on above: Bursitis of right el bow, unspecified bursa (Primary Dx) Start: 07-28-2024 End: 07-28-2024 [facility] Facility:[facility] Start: 07-06-2024 End: 07-06-2024 [facility] Telemanagement Comment on above: Anticoagulation Tele phone Fu (Lab INR result ) Start: 07-06-2024 End: 07-06-2024 ambulatory [facility] Facility:[facility] Start: 06-29-2024 End: 06-29-2024 Telephone encounter Coretta Jalloh [facility]ulatory Telemanagement Comment on above: Anticoagulation Tele phone Fu (Lab INR result ) Start: 06-29-2024 End: 06-29-2024 [facility] Facility:[facility] Start: 06-01-2024 End: 06-01-2024 Office consultation new/estab patient 80 min Luciana Cisneros MD Work Phone: Geriatrics Comment on above: Mixed dementia (HCC) (Primary Dx); Vascular parkinsonism (HCC) Start: 06-01-2024 End: 06-01-2024 ambulatory [facility] Facility:[facility] Start: 06-01-2024 End: 08-01-2024 Follow-up encounter Luciana Cisneros MD Work Phone: Geriatrics Start: 05-26-2024 End: 05-26-2024 Telephone encounter Luciana Cisneros MD Work Phone: Geriatrics Comment on above: Appointment (Resched ule for geriatric f/u) Start: 05-26-2024 End: 05-26-2024 ambulatory STAS MORA Facility:[facility] Start: 05-26-2024 End: 05-26-2024 Patient encounter procedure Stas Mora MD Work Phone: [facility] [place] Comment on above: Essential hypertensi on, benign (Primary Dx); Hyperlipidemia, unspecified hyperlipidemia type; Atherosclerosis 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, unspecified vessel or lesion type, unspecified whether [place] or transplanted heart; Paroxysmal atrial fibrillation (HCC); Edema of both lower legs; History of stroke with residual effects; Dementia, unspecified dementia severity, unspecified dementia type, unspecified whether behavioral, psychotic, or mood disturbance or anxiety (HCC) Start: 05-25-2024 End: 05-25-2024 Telephone encounter Paige Hickman [facility] Tele[facility] Comment on above: Anticoagulation Tele phone Fu (Lab INR Result ) Start: 05-25-2024 End: 05-25-2024 [facility] Start: 05-23-2024 ambulatory LUCIANA CISNEROS Facility :[id number] Start: 05-23-2024 End: 05-23-2024 Subsequent hospital visit by physician [facility] 1 Work Phone: [facility] Comment on above: Cognitive impairment , mild, 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] Start: 04-28-2024 End: 04-29-2024 Telephone encounter Stas Mora MD Work Phone: [facility] [place] Comment on above: Results Start: 04-27-2024 End: 04-27-2024 Telephone encounter Coretta Jalloh [facility] Telemanagement Comment on above: Anticoagulation Tele phone Fu (Lab INR result ) Start: 04-27-2024 End: 04-27-2024 ambulatory STAS MORA Facility:[facility] Start: 04-27-2024 End: 04-27-2024 Assmt & care planning pt w/cognitive impairment Luciana Cisneros MD Work Phone: Geriatrics Comment on above: Dementia, unspecifie d dementia severity, unspecified dementia type, unspecified whether behavioral, psychotic, or mood disturbance or anxiety (HCC) (Primary Dx); Cognitive impairment; Cognitive impairment, mild, so stated; Shuffling gait; Ambulatory dysfunction; Balance disorder Start: 04-27-2024 End: 04-27-2024 ambulatory STAS MORA Facility:[facility] Start: 04-25-2024 End: 04-25-2024 Telephone encounter Stas Mora MD Work Phone: [facility] Comment on above: memory issues Start: 04-13-2024 End: 04-13-2024 Telephone encounter Coretta Jalloh [facility] Comment on above: Anticoagulation Tele phone Fu (Home INR result ) Start: 04-13-2024 End: 04-13-2024 [facility] Start: 03-30-2024 End: 03-30-2024 Telephone encounter Coretta Jlaloh [facility] Comment on above: Anticoagulation Tele phone Fu (Lab INR result ) Start: 03-30-2024 End: 03-30-2024 ambulatory BEEMER Maya [facility] Facility:[facility] Start: 03-17-2024 End: 03-17-2024 Telephone encounter Josy Gandhi [facility] Comment on above: Anticoagulation Tele phone Fu (Lab INR result ) Start: 03-17-2024 End: 03-17-2024 ambulatory [facility] Start: 03-03-2024 End: 03-03-2024 Telephone encounter Elise Paredes [facility] Comment on above: Anticoagulation Tele phone Fu (Lab INR result) Start: 03-03-2024 End: 03-03-2024 ambulatory [facility] Start: 02-10-2024 End: 02-10-2024 Telephone encounter Coretta Jalloh [facility] Comment on above: Anticoagulation Tele phone Fu (Lab INR result ) Start: 02-10-2024 End: 02-10-2024 ambulatory STAS Maya [facility] Facility:[facility] Start: 01-20-2024 End: 01-20-2024 Telephone encounter Coretta Jalloh [facility] Comment on above: Anticoagulation Tele phone Fu (Lab INR results ) Start: 01-20-2024 End: 01-20-2024 ambulatory [facility] Facility:[facility] Start: 01-04-2024 End: 01-04-2024 Telephone encounter Stas Mora MD Work Phone: [facility] [place] Comment on above: Medication Request Start: 12-24-2023 End: 12-24-2023 Telephone encounter Elise Paredes [facility] Comment on above: Anticoagulation Tele phone Fu (Lab INR) Start: 12-23-2023 End: 12-23-2023 ambulatory [facility] Facility:[facility] Start: 12-10-2023 End: 12-10-2023 Telephone encounter Elise Paredes [facility] Comment on above: Anticoagulation Tele phone Fu (Lab INR) Start: 12-09-2023 End: 12-09-2023 ambulatory [facility] Facility:[facility] Start: 11-26-2023 End: 11-26-2023 Telephone encounter Elise Paredes [facility] Tele[facility] Comment on above: Anticoagulation Tele phone Fu (Lab INR) Start: 11-26-2023 End: 11-26-2023 ambulatory [facility] Facility:[facility] Start: 11-26-2023 End: 11-26-2023 Patient encounter procedure Stas Mora MD Work Phone: [facility] Comment on above: Essential hypertensi on, benign (Primary Dx); Hyperlipidemia, unspecified hyperlipidemia type; Edema of both lower legs; Paroxysmal atrial fibrillation (HCC); History of stroke with residual effects; 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, psychotic disturbance, mood disturbance, or anxiety (HCC); Urinary frequency; Abnormal CBC Start: 11-18-2023 End: 11-18-2023 Telephone encounter Coretta Jalloh [facility] Comment on above: Anticoagulation Tele phone Fu (Home INR) Start: 11-18-2023 End: 11-18-2023 ambulatory [facility] Facility:[facility] Start: 11-16-2023 End: 11-16-2023 Refill Stas Mora MD Work Phone: [facility] [place] Comment on above: Refill Request Start: 10-14-2023 Telephone encounter Corettaubaldo Jalloh [facility] Comment on above: Anticoagulation Tele phone Fu (Home INR results ) Start: 10-14-2023 End: 10-14-2023 ambulatory STAS MORA Facility:[facility] Start: 09-16-2023 Telephone encounter Colleen Sommer [facility] Telemanagement Comment on above: Anticoagulation Tele phone Fu Start: 09-15-2023 End: 09-15-2023 Patient encounter procedure Stas Mora MD Work Phone: [facility] [place] Comment on above: Edema of both lower legs (Primary Dx) Start: 09-14-2023 End: 09-14-2023 ambulatory Nurse Intm/Famp Triage [facility] Work Phone: Nurse Phone Triage Comment on above: Leg swelling Start: 09-02-2023 Telephone encounter Coretta Taryaquelin [facility] Comment on above: Anticoagulation Tele phone Fu (Lab INR results) Start: 08-26-2023 Telephone encounter [facility]oretta Taryaquelin [facility] Comment on above: Anticoagulation Tele phone Fu (Lab INR results ) Start: 08-19-2023 Telephone encounter Coretta Taryaquelin [facility] Comment on above: Anticoagulation Tele phone Fu (Lab INR) Start: 08-14-2023 End: 08-14-2023 Patient encounter procedure Stas Mora MD Work Phone: [facility] [place] Comment on above: Moderate vascular de mentia without behavioral disturbance, psychotic disturbance, mood disturbance, or anxiety (HCC) (Primary Dx); Essential hypertension, benign; Paroxysmal atrial fibrillation (HCC) Start: 08-12-2023 Telephone encounter Coretta Taryaquelin [facility] Comment on above: Anticoagulation Tele phone Fu (Home INR results ) Start: 08-06-2023 ambulatory PAYTON SHAMAR DO Facil ity:A Start: 08-05-2023 Telephone encounter Coretta Tarcy [facility] Comment on above: Anticoagulation Tele phone Fu (Home INR results ) Start: 07-29-2023 Telephone encounter Elena Lopez [facility] Comment on above: Anticoagulation Foll ow Up Start: 07-22-2023 Telephone encounter [facility] Comment on above: Anticoagulation Tele phone Fu (Lab INR results ) Start: 07-16-2023 Refill Elvis RASHID RN.[employer] Work Phone: [facility] [place] Comment on above: Refill Request Start: 07-15-2023 Telephone encounter [facility] Comment on above: Anticoagulation Tele phone Fu (Lab INR results ) Start: 07-08-2023 Telephone encounter [facility] Comment on above: Anticoagulation Tele phone Fu (Lab INR ) Start: 07-02-2023 Telephone encounter Coretta Jalloh [facility] Comment on above: Opened In Error Start: 07-01-2023 Telephone encounter [facility] Comment on above: Anticoagulation Tele phone Fu (Home INR ) Start: 06-25-2023 End: 04-13-2024 Telephone encounter [facility] Comment on above: Patient Update Start: 06-24-2023 Telephone encounter Jerzy Easton MD Work Phone: [facility] [place] Comment on above: Anticoagulation Start: 06-11-2023 Telephone encounter Stas miranda MD Work Phone: [facility] [place] Comment on above: Anticoagulation Start: 06-08-2023 Telephone encounter Jenna Armenta mdof [employer]STRU[employer]ER.[employer] Work Phone: [facility] [place] Comment on above: Erroneous encounter- disregard Anticoagulation Start: 06-05-2023 Telephone encounter Jenna Armenta mdof [employer]RILLER.[employer]NER Work Phone: [facility] [place] Comment on above: Results (Labs, Criti cleopatra ) Start: 06-04-2023 ambulatory Hortencia Winston RN NURSE O N CALL Comment on above: Results, Lab High Protime and INR Start: 06-04-2023 E-mail encounter fro m caregiver Jasmin Bell MD Work Phone: [facility] [place] Start: 06-04-2023 Telephone encounter Jenna Armenta nhof [employer]STRU[employer] DRILLER.[employer] TURNER Work Phone: [facility] [place] Comment on above: Results; Orders (Lab s ) Start: 06-03-2023 Telephone encounter [facility]oretta Jalloh [facility] Ambulatory Telemanagement Comment on above: Anticoagulation Tele phone Fu (Lab INR results ) Start: 06-01-2023 End: 06-01-2023 Patient encounter procedure Stas Mora MD Work Phone: [facility] [place] Comment on above: Essential hypertensi on, benign (Primary Dx); Paroxysmal atrial fibrillation (HCC); Atherosclerosis 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, unspecified vessel or lesion type, unspecified whether [place] or transplanted heart; Hyperlipidemia, unspecified hyperlipidemia type; History of stroke with residual effects; Speech disturbance, unspecified type Start: 05-27-2023 Telephone encounter Corettaubaldo Jalloh [facility] Comment on above: Anticoagulation Tele phone Fu (Lab INR results ) Start: 05-20-2023 Telephone encounter Corettaubaldo Mayocy [facility] Amb[facility] Tele[facility] Comment on above: Anticoagulation Tele phone Fu (Home INR results) Start: 05-13-2023 Telephone encounter Senia Phillips [facility] Ambulatory Telemanagement Comment on above: Anticoagulation Tele phone Fu (INR Lab Result) Start: 05-06-2023 Telephone encounter Corettaubaldo Mayocy R [facility] Comment on above: Anticoagulation Tele phone Fu (Lab INR results ) Start: 04-29-2023 Telephone encounter Coretta Tarcy [facility] Amb[facility] Tele[facility] Comment on above: Anticoagulation Tele phone Fu (Home INR results ) Start: 02-20-2023 Telephone encounter Elise Paredes [facility] Comment on above: Anticoagulation Tele phone Fu (Lab INR) Start: 02-17-2023 Telephone encounter Stas miranda MD Work Phone: [facility] [place] Comment on above: Results Start: 02-17-2023 End: 02-17-2023 Subsequent hospital visit by physician Mri [facility] (I-Stat/1.5t) Work Phone: Radiology Comment on above: Cerebral infarction, unspecified mechanism (HCC) [I63.9] Start: 02-16-2023 End: 02-16-2023 Patient encounter procedure Stas Mora MD Work Phone: [facility] Comment on above: Cerebral infarction, unspecified mechanism (HCC) (Primary Dx); Generalized weakness; Speech disturbance, unspecified type; Hyperlipidemia, unspecified hyperlipidemia type; Essential hypertension, benign; Paroxysmal atrial fibrillation (HCC) Start: 02-13-2023 Telephone encounter Elise Paredes [facility]ulatory Telemanagement Comment on above: Anticoagulation Tele phone Fu (Lab INR) Start: 02-10-2023 End: 02-10-2023 Emergency department patient visit [facility] Work Phone: Start: 02-06-2023 Telephone encounter Senia Phillips h P [facility]acy Ambulatory Telemanagement Comment on above: Anticoagulation Tele phone Fu (INR Lab Result) Start: 01-19-2023 Telephone encounter [facility]ige [facility] Comment on above: Anticoagulation Tele phone Fu Start: 01-16-2023 Orders Only Stas newman MD Work Phone: [facility] Comment on above: care home current us e of anticoagulant (Primary Dx); Paroxysmal atrial fibrillation (HCC) Start: 12-26-2022 Telephone encounter Senia Phillips RPh P [facility]acy Ambulatory Telemanagement Comment on above: Anticoagulation Tele phone Fu (INR Lab Result) Start: 12-19-2022 Telephone encounter Senia Phillips RPh P [facility]acy Ambulatory Telemanagement Comment on above: Anticoagulation Tele phone Fu (INR Lab Result) Start: 12-12-2022 Telephone encounter Senia Phillips RPh P harmacy Ambulatory Telemanagement Comment on above: Anticoagulation Tele phone Fu (INR Lab Result) Start: 11-21-2022 Telephone encounter Jeimy Duong [facility] Comment on above: Anticoagulation Tele phone Fu (Lab INR result) Start: 11-17-2022 End: 11-17-2022 Emergency department patient visit NONE PHYSICIAN Facility:B Start: 11-17-2022 End: 11-17-2022 Emergency department patient visit STERLING LYNCH DO [facility] Start: 11-07-2022 Telephone encounter Senia Cross [...] Lab Result) Start: 10-17-2022 Telephone encounter Yomi Wills RP h Pharmacy Ambulatory Telemanagement Comment on above: Anticoagulation Tele phone Fu (Lab INR Result/) urgent PT INR result Start: 09-26-2022 Telephone encounter Jeimy Duong [facility] Comment on above: Anticoagulation Tele phone Fu (Lab INR result) Start: 09-12-2022 Telephone encounter Jeimy Duong [facility] Comment on above: Anticoagulation Tele phone Fu (Lab INR result) Start: 08-26-2022 End: 08-26-2022 Patient encounter procedure Stas Mora MD Work Phone: [facility] [place] Comment on above: Encounter for Medica re [...] Lab Result) Start: 07-04-2022 Telephone encounter Lety Gandara [facility] Comment on above: Anticoagulation Tele phone Fu (Lab INR result ) Start: 06-23-2022 Refill Elvis RASHID RN.INSOLE LIP TURNER Work Phone: [facility] Comment on above: Refill Request Start: 06-20-2022 Telephone encounter Senia Cross RPh P harmacy Ambulatory Telemanagement Comment on above: Anticoagulation Tele phone Fu (INR Lab Result) Start: 06-06-2022 Telephone encounter Senia Cross RPh P harmacy Amb[facility] Tele[facility] Comment on above: Anticoagulation Tele phone Fu (INR Lab Result) Start: 05-30-2022 Telephone encounter Stas miranda MD Work Phone: [facility] [place] Comment on above: Opened In Error Start: 05-22-2022 Telephone encounter Jenna Armenta nhof CONSTRUCTION DRILLER.INSOLE LIP TURNER Work Phone: [facility] [place] Comment on above: Results (X-ray hip) Start: 05-21-2022 End: 05-21-2022 Subsequent hospital visit by physician Jaymie [facility] [place] Work Phone: Radiology Comment on above: Left hip pain [M25.5 52] Start: 05-21-2022 ambulatory Fani Grace RN NURSE O N CALL Comment on above: Fall Fall; Hip Pain Start: 05-19-2022 Telephone encounter Stas miranda MD Work Phone: [facility] [place] Comment on above: Anticoagulation Start: 05-16-2022 Telephone [...] Start: 04-04-2022 Telephone encounter Elise Paredes [facility] Comment on above: Anticoagulation Tele phone Fu (Lab INR) Start: 03-31-2022 Telephone encounter Stas miranda MD Work Phone: [facility] [place] Comment on above: Release Of Medical R ecords ([place] PCP) Start: 03-21-2022 Telephone encounter Carmelina Cruz [facility] Comment on above: Anticoagulation Tele phone Fu Start: 02-21-2022 Telephone encounter Kristian Ferguson MD Work Phone: [facility] [place] Comment on above: Anticoagulation Start: 02-10-2022 Telephone encounter Stas miranda MD Work Phone: [facility] [place] Comment on above: Opened In Error Start: 01-27-2022 Telephone encounter Paige Brady [facility] Comment on above: Anticoagulation Tele phone Fu (Lab INR Result) Start: 01-20-2022 Telephone encounter Paige Brady [facility] Comment on above: Anticoagulation Tele phone Fu (Lab INR Result) Start: 01-17-2022 Telephone encounter Stas miranda MD Work Phone: [facility] Comment on above: Anticoagulation; Cri tical Results (INR) Start: 01-13-2022 Refill Stas newman MD Work Phone: [facility] Comment on above: Refill Request; Refi ll Request Start: 01-03-2022 Telephone encounter Senia Alan [facility] Comment on above: Anticoagulation Tele phone Fu (INR Home Test Result) Start: 01-02-2022 Telephone encounter Stas miranda MD Work Phone: [facility] Comment on above: Results Start: 12-26-2021 End: 12-26-2021 Patient encounter procedure Stas Mora MD Work Phone: [facility] Comment on above: Hospital discharge f ollow-up (Primary Dx); Encounter for immunization; TIA (transient ischemic attack); Thyroid nodule; Essential hypertension, benign; Paroxysmal atrial fibrillation (HCC); Atherosclerosis 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, unspecified vessel or lesion type, unspecified whether [place] or transplanted heart Start: 12-22-2021 Non-patient / Non-visit Dr. Maria E Mora Work Phone: [facility] Start: 12-21-2021 Non-patient / Non-visit Dr. Maria E Mora Work Phone: [facility] Start: 12-21-2021 End: 12-22-2021 Evaluation and management of inpatient [facility] Unit Start: 12-21-2021 End: 12-22-[address] Stas Mora Work Phone: [facility] Work Phone: Start: 12-20-2021 Telephone encounter Stas miranda MD Work Phone: [facility] [place] Comment on above: Opened In Error Anticoagulation Tele phone Fu (INR Lab Result) Start: 12-06-2021 Telephone encounter Senia Alan [facility] Tele[facility] Comment on above: Anticoagulation Tele phone Fu (INR Lab Result) Start: 11-22-2021 Telephone encounter Janice Huang [facility] Comment on above: Anticoagulation Tele phone Fu (INR) Start: 11-08-2021 Telephone encounter Stas miranda MD Work Phone: [facility] [place] Comment on above: Opened In Error Anticoagulation Tele phone Fu (INR Lab Result) Start: 10-25-2021 Telephone encounter Janice Sal [facility] Comment on above: Anticoagulation Tele phone Fu (lab INR ) Start: 09-27-2021 Telephone encounter Yomi Covarrubiaszman [facility] Ambulatory Telemanagement Comment on above: Anticoagulation Tele phone Fu (Lab INR Result) Start: 09-13-2021 Orders Only Stas newman MD Work Phone: [facility] [place] Comment on above: care home current us e of anticoagulant (Primary Dx); Encounter for monitoring Coumadin therapy Anticoagulation Tele phone Fu (INR Lab Result) Start: 09-05-2021 End: 09-05-2021 Patient encounter procedure Stas Mora MD Work Phone: [facility] [place] Comment on above: Encounter for Medica re annual wellness exam (Primary Dx); Paroxysmal atrial fibrillation (HCC); Essential hypertension, benign Start: 08-30-2021 Telephone encounter Jenna Armenta nhof CONSTRUCTION DRILLER.INSOLE LIP TURNER Work Phone: [facility] [place] Comment on above: Orders (INR ) Anticoagulation Tele phone Fu (INR Lab Result) Start: 08-16-2021 Orders Only Stas newman MD Work Phone: [facility] [place] Comment on above: Anticoagulation Start: 08-02-2021 Telephone encounter Senia Alan [facility] Comment on above: Anticoagulation Tele phone Fu (INR Lab Result) Start: 07-16-2021 Telephone encounter Stas miranda MD Work Phone: [facility] Comment on above: Results Start: 07-13-2021 Refill Elvis RASHID RN.INSOLE LIP TURNER Work Phone: [facility] Comment on above: Refill Request Start: 07-08-2021 End: 07-08-2021 Patient encounter procedure Stas Mora MD Work Phone: [facility] Comment on above: Essential hypertensi on, benign (Primary Dx); Atherosclerosis 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, unspecified vessel or lesion type, unspecified whether [place] or transplanted heart; Paroxysmal atrial fibrillation (HCC); Primary osteoarthritis of both knees Start: 07-03-2021 Telephone encounter Stas miranda MD Work Phone: [facility] Comment on above: Anticoagulation Tele phone Fu (Lab INR result) Start: 06-12-2021 Telephone encounter Stas miranda MD Work Phone: [facility] Comment on above: Anticoagulation (Lab INR result) Start: 03-12-2020 End: 03-12-2020 Subsequent hospital visit by physician Xr [facility] [place] Work Phone: Radiology Comment on above: Acute right-sided lo w back pain, unspecified whether sciatica present [M54.5] Start: 02-02-2018 Ambulatory DARRELL OLIVEIRA Facility :[facility] Start: 06-02-2017 End: 06-02-2017 [facility] Procedures Date Procedure Procedure Detail Performing Clinician Start: 09-06-[address] Stas Mora MD Work Phone: Start: 09-05-2024 Urnls dip stick/tabl et reagent auto microscopy Dr. Stas Mora MD Work Phone: Start: 09-01-[address] Stas Mora MD Work Phone: Start: 09-01-[address] Stas Mora MD Work Phone: Start: 09-01-2024 Urnls dip stick/tabl et reagent [...] depression scr eening assessment Coretta Jalloh [facility] Start: 02-17-2023 Mri brain brain stem w/o contrast material Stas Mora MD Work Phone: Start: 02-10-2023 Plain chest X-ray Start: 02-10-2023 SARS-CoV-2 & FLU Ant igen (Rapid) Start: 05-21-2022 Radex hip unilateral with pelvis 2-3 views Jenna Fitzpatrick APRN.INSOLE LIP TURNER Work Phone: Start: 05-19-2022 PROTHROMBIN TIME/PT Ccf [...] Detail Author Start: 02-27-2031 Urine microalbumin profile [facility] Start: 05-26-2027 Diabetes Screening Diabetes Screenin g [facility] Start: 06-02-2026 Diabetes Screening Diabetes Screennm g [facility] Start: 08-15-2025 DIABETES SCREEN DIABETES SCREEN [facility] Start: 08-15-2025 Diabetes Screening Diabetes Screenin g [facility] Start: 05-25-2025 Hepatitis B surface antibody level LDL Cholesterol [facility] Start: 03-30-2025 End: 03-30-2025 Patient encounter procedure 03/30/2025 11:00 AM EST Office Visit Geriatrics [address], [place] [id number] Luciana Cisneros MD [address] [place], [place] [id number] follow up 6 months Geriatrics Comment on above: follow up 6 months Start: 02-21-2025 DIABETES SCREEN DIABETES SCREEN [facility] Start: 12-06-2024 DIABETES SCREEN DIABETES SCREEN [facility] Start: 12-05-2024 End: 12-05-2024 Patient encounter procedure 12/05/2024 12:40 PM EDT Office Visit Family Medicine [place] [address] [facility] [place] [address] Stas Mora MD [address] [place], [place] [id number] reschedule from 12/01 [facility] [place] Comment on above: reschedule from 12/01 Start: 12-01-2024 End: 12-01-2024 Patient encounter procedure 12/01/2024 9:40 AM EDT Office Visit Family Medicine [place] [address] [place], [place] [address] Stas Mora MD [address] [place], [place] [address] 6 mo f/u Family [facility] [place] Comment on above: 6 mo f/u Start: 11-26-2024 End: 02-25-2025 CBC W Auto Differential panel - Blood COMPLETE BLOOD COUNT AND DIFFERENTIAL Lab Routine Essential hypertension, benign Expected: 11/26/2024 (Approximate), Expires: 02/25/2025 [facility] Comment on above: Expected: 11/26/2024 (Approximate), Expires: 02/25/2025 Start: 11-26-2024 End: 02-25-2025 Comprehensive metabolic 2000 panel - Serum or Plasma COMPREHENSIVE METABOLIC PANEL Lab Routine Essential hypertension, benign Hyperlipidemia, unspecified hyperlipidemia type Expected: 11/26/2024 (Approximate), Expires: 02/25/2025 [facility] Work Phone: Comment on above: Expected: 11/26/2024 (Approximate), Expires: 02/25/2025 Start: 11-26-2024 End: 02-25-2025 Lipid 1996 panel - Serum or Plasma LIPID PANEL BASIC Lab Routine Essential hypertension, benign Hyperlipidemia, unspecified hyperlipidemia type Expected: 11/26/2024 (Approximate), Expires: 02/25/2025 [facility] Comment on above: Expected: 11/26/2024 (Approximate), Expires: 02/25/2025 Start: 11-25-2024 RSV Vaccine (1 - 1-d ose 60+ series) RSV Vaccine (1 - 1-dose 60+ series) [facility] Comment on above: Postponed from 08/12 (Declined at this time) Start: 11-25-2024 RSV Vaccine (1 - 1-d ose 75+ series) RSV Vaccine (1 - 1-dose 75+ series) [facility] Comment on above: Postponed from 08/12 (Declined at this time) Start: 11-21-2024 Influenza vaccination Influenza Vacc ine (#1) [facility] Start: 09-06-2024 Patient discharge [facility] Start: 09-02-2024 Admission procedure [facility] Start: 09-01-2024 End: 09-02-2024 [facility] Start: 09-01-2024 Blood culture Blood Culture [facility] Start: 09-01-2024 Application of intermittent pneumatic compression device [facility] Start: 09-01-2024 Fall prevention [facility] Start: 09-01-2024 Oxygen therapy [facility] Start: 09-01-2024 Provision of activit y privileges [facility] Start: 09-01-2024 Assessment of risk o f venous thromboembolism [facility] Start: 09-01-2024 Insertion of cathete r into peripheral vein [facility] Start: 09-01-2024 Providing care accor ding to standard [facility] Start: 09-01-2024 Referral to occupati onal therapist [facility] Start: 09-01-2024 Referral to service [facility] Start: 09-01-2024 [facility] Start: 09-01-2024 Following clinical pathway protocol [facility] Start: 09-01-2024 Admission procedure [facility] Start: 09-01-2024 Hospital admission, emergency, from emergency room, medical nature [facility] Start: 08-31-2024 End: 08-31-2024 Patient encounter procedure 08/31/2024 11:00 AM EDT Office Visit Geriatrics [address] [place] [address] Luciana Cisneros MD [address] [place] [address] 3 month f/u Geriatrics Comment on above: 3 month f/u Start: 2024 Anxiety Screening Anxiety Screening [facility] Start: 2024 Depression Screening Depression Scre ening [facility] Start: 07-08-2024 DIABETES SCREEN DIABETES SCREEN [facility] Start: 06-02-2024 Hepatitis B surface antibody level LDL Cholesterol [facility] Start: 06-01-2024 End: 06-01-2024 Patient encounter procedure 06/01/2024 3:00 PM EDT Office Visit Geriatrics [address] [place] [address] Luciana Cisneros MD [address] [place] [address] Follow up visit for MRI Geriatrics Comment on above: Follow up visit for MRI Start: 06-01-2024 Covid-19 Vaccine () Covid-19 Vaccine ( season) [facility] Start: 05-30-2024 End: 05-30-2024 Patient encounter procedure 05/30/2024 11:20 AM EDT Office Visit Internal Medicine [place] [address] [place] [address] Luciana Cisneros MD [address] [place] [address] Follow up visit for MRI [facility] [place] Comment on above: Follow up visit for MRI Start: 05-26-2024 End: 05-26-2024 Patient encounter procedure 05/26/2024 9:20 AM EST Office Visit Family Medicine [place] [address] [place] [address] Stas Mora MD [address] [place] [address] 6 mo f/u Family Medicine [place] Comment on above: 6 mo f/u Start: 05-25-2024 End: 08-24-2024 CBC W Auto Differential panel - Blood COMPLETE BLOOD COUNT AND DIFFERENTIAL Lab Routine Abnormal CBC Expected: 05/25/2024 (Approximate), Expires: 08/24/2024 [facility] Comment on above: Expected: 05/25/2024 (Approximate), Expires: 08/24/2024 Start: 05-25-2024 End: 08-24-2024 Comprehensive metabolic 2000 panel - Serum or Plasma COMPREHENSIVE METABOLIC PANEL Lab Routine Essential hypertension, benign Hyperlipidemia, unspecified hyperlipidemia type Expected: 05/25/2024 (Approximate), Expires: 08/24/2024 [facility] Work Phone: Comment on above: Expected: 05/25/2024 (Approximate), Expires: 08/24/2024 Start: 05-25-2024 End: 08-24-2024 Lipid 1996 panel - Serum or Plasma LIPID PANEL BASIC Lab Routine Essential hypertension, benign Hyperlipidemia, unspecified hyperlipidemia type Expected: 05/25/2024 (Approximate), Expires: 08/24/2024 [facility] Comment on above: Expected: 05/25/2024 (Approximate), Expires: 08/24/2024 Start: 05-25-2024 End: 05-25-2024 ambulatory 05/25/2024 8:30 AM EST Results Only [place] [facility] Draw Station [address] 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 [address] Stas Mora MD [address] [facility] [address] memory issues,See TE [facility] [place] Comment on above: memory issues,See TE Start: 04-27-2024 End: 04-27-2024 Patient encounter procedure 04/27/2024 9:30 AM EST Office Visit Geriatrics [address] [facility] [address] Luciana Cisneros MD [address] [facility] [address] Dementia, unspecified dementia severity, unspecified dementia type, unspecified whether behavioral, psychotic, or mood disturbance or anxiety (HCC) [F03.90] Geriatrics Comment on above: Dementia, unspecifie d dementia severity, unspecified dementia type, unspecified whether behavioral, psychotic, or mood disturbance or anxiety (HCC) [F03.90] Start: 03-23-2024 Advance Directive Discussion Advance Directive Discussion [facility] Start: 03-23-2024 Medicare Advantage A nnual Wellness Visit Medicare Advantage Annual Wellness Visit [facility] Start: 03-13-2024 DIABETES SCREEN DIABETES SCREEN [facility] Start: 11-26-2023 End: 11-26-2023 Patient encounter procedure [facility] [place] Comment on above: 6 month follow up 6 month follow up, jessica bashir, on aricept x 3 months Start: 11-22-2023 Covid-19 Vaccine ( season) Covid-19 Vaccine ( season) [facility] Start: 11-22-2023 Influenza vaccination Influenza Vacc ine (#1) [facility] Start: 09-15-2023 End: 09-15-2023 Patient encounter procedure 09/15/2023 8:40 AM EDT Office Visit [facility] [place] [address] [place], [place] [id number] Stas Mora MD [address] [place], [place] [id number] leg swelling- both legs--See triage 09/14/2023. [facility] [place] Comment on above: leg swelling- both l egs--See triage 09/14/2023. Start: 08-16-2023 Hepatitis B surface antibody level LDL CHOLESTEROL [facility] Start: 08-14-2023 End: 08-14-2023 Patient encounter procedure 08/14/2023 10:00 AM EDT Office Visit [facility] [place] [address] [facility], [place] [id number] Stas Mora MD [address] [place], [place] [id number] Memory Issues [facility] [place] Comment on above: Memory Issues Start: 06-04-2023 End: 09-03-2023 Ferritin [Mass/volume] in Serum or Plasma [facility] Work Phone: Comment on above: Expected: 06/04/2023 , Expires: 09/03/2023 Start: 06-04-2023 End: 09-03-2023 Iron and Iron binding capacity panel - Serum or Plasma [facility] Work Phone: Comment on above: Expected: 06/04/2023 , Expires: 09/03/2023 Start: 06-01-2023 End: 08-31-2023 CBC panel - Blood by Automated count CBC Lab Routine Paroxysmal atrial fibrillation (HCC) Essential hypertension, benign Expected: 06/01/2023 (Approximate), Expires: 08/31/2023 [facility] Work Phone: Comment on above: Expected: 06/01/2023 (Approximate), Expires: 08/31/2023 Start: 06-01-2023 End: 08-31-2023 Comprehensive metabolic 2000 panel - Serum or Plasma COMP METABOLIC PANEL Lab Routine Paroxysmal atrial fibrillation (HCC) Essential hypertension, benign Hyperlipidemia, unspecified hyperlipidemia type Expected: 06/01/2023 (Approximate), Expires: 08/31/2023 [facility] Work Phone: Comment on above: Expected: 06/01/2023 (Approximate), Expires: 08/31/2023 Start: 06-01-2023 End: 08-31-2023 Lipid 1996 panel - Serum or Plasma LIPID PANEL BASIC Lab Routine Paroxysmal atrial fibrillation (HCC) Essential hypertension, benign Hyperlipidemia, unspecified hyperlipidemia type Expected: 06/01/2023 (Approximate), Expires: 08/31/2023 [facility] Work Phone: Comment on above: Expected: 06/01/2023 (Approximate), Expires: 08/31/2023 Start: 05-13-2023 Covid-19 Vaccine () Covid-19 Vaccine () [facility] Start: 03-23-2023 Advance Directive Discussion Advance Directive Discussion [facility] Start: 03-23-2023 Behavioral Health Screening Behavioral Health Screening [facility] Start: 03-23-2023 Depression Assessment Depression Ass essment [facility] Start: 02-21-2023 Hepatitis B surface antibody level LDL CHOLESTEROL [facility] Start: 02-10-2023 [facility] Start: 12-06-2022 Hepatitis B surface antibody level LDL CHOLESTEROL [facility] Start: 11-21-2022 Covid-19 Vaccine () Covid-19 Vaccine () [facility] Start: 11-21-2022 Influenza vaccination [facility] Start: 09-05-2022 PNEUMOCOCCAL: 65+ (2 - PCV) PNEUMOCOCCAL: 65+ (2 - PCV) [facility] Comment on above: Postponed from 02/21 (Declined at this time) Start: 07-08-2022 Hepatitis B surface antibody level LDL CHOLESTEROL [facility] Start: 04-26-2022 COVID-19 VACCINE (6 - Pfizer series) COVID-19 VACCINE (6 - Pfizer series) [facility] Start: 03-23-2022 ADVANCE DIRECTIVE DISCUSSION ADVANCE DIRECTIVE DISCUSSION [facility] Start: 03-23-2022 DEPRESSION ASSESSMENT DEPRESSION ASS ESSMENT [facility] Start: 03-13-2022 Hepatitis B surface antibody level LDL CHOLESTEROL [facility] Start: 03-10-2022 End: 05-10-2022 CBC panel - Blood by Automated count CBC Lab Routine TIA (transient ischemic attack) Essential hypertension, benign Atherosclerosis 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, unspecified vessel or lesion type, unspecified whether [place] or transplanted heart Expected: 03/10/2022 (Approximate), Expires: 05/10/2022 [facility] Work Phone: Comment on above: Expected: 03/10/2022 (Approximate), Expires: 05/10/2022 Start: 03-10-2022 End: 05-10-2022 Comprehensive metabolic 2000 panel - Serum or Plasma COMP METABOLIC PANEL Lab Routine TIA (transient ischemic attack) Essential hypertension, benign Atherosclerosis 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, unspecified vessel or lesion type, unspecified whether [place] or transplanted heart Expected: 03/10/2022 (Approximate), Expires: 05/10/2022 [facility] Work Phone: Comment on above: Expected: 03/10/2022 (Approximate), Expires: 05/10/2022 Start: 03-10-2022 End: 05-10-2022 Lipid 1996 panel - Serum or Plasma LIPID PANEL BASIC Lab Routine TIA (transient ischemic attack) Essential hypertension, benign Atherosclerosis 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, unspecified vessel or lesion type, unspecified whether [place] or transplanted heart Expected: 03/10/2022 (Approximate), Expires: 05/10/2022 [facility] Work Phone: Comment on above: Expected: 03/10/2022 (Approximate), Expires: 05/10/2022 Start: 01-03-2022 End: 03-05-2022 Comprehensive metabolic 2000 panel - Serum or Plasma COMP METABOLIC PANEL Lab Routine Atherosclerosis 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, unspecified vessel or lesion type, unspecified whether [place] or transplanted heart Essential hypertension, benign Expected: 01/03/2022 (Approximate), Expires: 03/05/2022 [facility] Work Phone: Comment on above: Expected: 01/03/2022 (Approximate), Expires: 03/05/2022 Start: 01-03-2022 End: 03-05-2022 LIPID PANEL BASIC LIPID PANEL BASIC Lab Routine Atherosclerosis 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, unspecified vessel or lesion type, unspecified whether [place] or transplanted heart Essential hypertension, benign Expected: 01/03/2022 (Approximate), Expires: 03/05/2022 [facility] Work Phone: Comment on above: Expected: 01/03/2022 (Approximate), Expires: 03/05/2022 Start: 12-24-2021 Prothrombin time [facility] Work Phone: Start: 12-23-2021 Prothrombin time [facility] Work Phone: Start: 12-22-2021 Patient discharge [facility] Work Phone: Start: 12-21-2021 Assessment of risk o f venous thromboembolism [facility] Work Phone: Start: 12-21-[address] [facility] Work Phone: Start: 12-21-2021 Catheterization of vein [facility] Work Phone: Start: 12-21-2021 Continuous pulse oximetry [facility] Work Phone: Start: 12-21-2021 Elevation of head of bed [facility] Work Phone: Start: 12-21-2021 Exercises [facility] Work Phone: Start: 12-21-[address] anned interventions [facility] Work Phone: Start: 12-21-2021 Insertion of cathete r into peripheral vein [facility] Work Phone: Start: 12-21-2021 Measuring intake and output [facility] Work Phone: Start: 12-21-2021 Notification of physician [facility] Work Phone: Start: 12-21-2021 Oxygen therapy [facility] Work Phone: Start: 12-21-2021 Providing care accor ding to standard [facility] Work Phone: Start: 12-21-2021 Provision of activit y privileges [facility] Work Phone: Start: 12-21-2021 Referral to occupati onal therapist [facility] Work Phone: Start: 12-21-2021 Referral to service [facility] Work Phone: Start: 12-21-2021 Tobacco use cessatio n education [facility] Work Phone: Start: 12-21-2021 US scan of thyroid Thyroid [facility] Work Phone: Start: 12-21-2021 [facility] Work Phone: Start: 12-21-2021 End: 12-21-2021 Following clinical pathway protocol [facility] Work Phone: Start: 12-21-2021 Verification routine Wo [facility] Work Phone: Start: 12-21-2021 Admission procedure [facility] Work Phone: Start: 12-21-2021 CT of head without contrast STROKE Brain/Head without Cont [facility] Work Phone: Start: 12-21-2021 CT Unspecified body region WO contrast [facility] Work Phone: Start: 12-21-2021 Oxygen therapy [facility] Work Phone: Start: 12-21-2021 End: 12-22-2021 [facility] Work Phone: Start: 11-21-2021 Influenza vaccination INFLUENZA (#1) [facility] Start: 09-24-2021 COVID-19 VACCINE (5 - Booster for Pfizer series) COVID-19 VACCINE (5 - Booster for Pfizer series) [facility] Start: 08-30-2021 End: 10-30-2021 PT panel - Platelet poor plasma by Coagulation assay [facility] Work Phone: Comment on above: Expected: 08/30/2021 , Expires: 10/30/2021 Start: 07-08-2021 End: 09-07-2021 Comprehensive metabolic 2000 panel - Serum or Plasma [facility] Work Phone: Comment on above: Expected: 07/08/2021 (Approximate), Expires: 09/07/2021 Start: 07-08-2021 End: 09-07-2021 LIPID PANEL BASIC [facility] Work Phone: Comment on above: Expected: 07/08/2021 (Approximate), Expires: 09/07/2021 Start: 04-27-2021 COVID-19 VACCINE (4 - Booster for Pfizer series) COVID-19 VACCINE (4 - Booster for Pfizer series) [facility] Start: 03-23-2021 ADVANCE DIRECTIVE DISCUSSION ADVANCE DIRECTIVE DISCUSSION [facility] Start: 03-23-2021 DEPRESSION ASSESSMENT DEPRESSION ASS ESSMENT [facility] Start: 02-21-2009 Pneumococcal Vaccine : 65+ (2 - PCV) Pneumococcal Vaccine: 65+ (2 - PCV) [facility] Start: 02-21-2009 PNEUMOCOCCAL: 65+ (2 - PCV) PNEUMOCOCCAL: 65+ (2 - PCV) [facility] Start: 02-23-2008 Urine microalbumin profile DTAP,TDAP,TD (1 - Tdap) [facility] Start: 1995 RSV Vaccine (1 - 1-d ose 60+ series) RSV Vaccine (1 - 1-dose 60+ series) [facility] Start: 08-12-1985 SHINGRIX VACCINE (1 of 2) VALDES GRIX VACCINE (1 of 2) [facility] Hemoglobin.gastroint estin al.lower [Presence] in Stool by Immunoassay FECAL OCCULT BLOOD TEST Lab Routine Abnormal CBC 06/04/2023 2:13 PM EDT [facility] Work Phone: End: 05-27-2025 MR Brain WO contrast MRI BRAIN W QUANT WO IVCON Radiology Routine Cognitive impairment, mild, so stated 1 Occurrences starting 04/27/2024 until 05/27/2025 [facility] Work Phone: Comment on above: 1 Occurrences starti ng 04/27/2024 until 05/27/2025 End: 05-27-2025 MR Unspecified body region 3D post processing MRI 3D BRAIN QUANT Radiology Routine Cognitive impairment, mild, so stated 1 Occurrences starting 04/27/2024 until 05/27/2025 [facility] Comment on above: 1 Occurrences starti ng 04/27/2024 until 05/27/2025 End: 03-17-2024 Mri brain brain stem w/o contrast material MRI BRAIN WO IVCON Radiology STAT Cerebral infarction, unspecified mechanism (HCC) 1 Occurrences starting 02/16/2023 until 03/17/2024 [facility] Work Phone: Comment on above: 1 Occurrences starti ng 02/16/2023 until 03/17/2024 Mri brain brain stem w/o contrast material MRI BRAIN WO IVCON Radiology STAT Cerebral infarction, unspecified mechanism (HCC) 02/17/2023 8:13 AM EST [facility] Work Phone: Patient Education ED Weakness (U ncertain Cause) [facility] Work Phone: Patient referral [facility] Work Phone: End: 09-13-2022 PT panel - Platelet poor plasma by Coagulation assay PROTHROMBIN TIME/PT Lab Routine care home current use of anticoagulant Encounter for monitoring Coumadin therapy Once per week for 99 Occurrences starting 09/13/2021 until 09/13/2022 [facility] Work Phone: Comment on above: Once per week for 99 Occurrences starting 09/13/2021 until 09/13/2022 PT panel - Platelet poor plasma by Coagulation assay PROTHROMBIN TIME/PT Lab Routine care home current use of anticoagulant Encounter for monitoring Coumadin therapy 09/13/2021 8:42 AM EDT [facility] Work Phone: End: 01-16-2024 PT panel - Platelet poor plasma by Coagulation assay PROTHROMBIN TIME/PT Lab Routine 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 Paroxysmal atrial fibrillation (HCC) Once per week for 99 Occurrences starting 01/16/2023 until 01/16/2024 [facility] Work Phone: Comment on above: Once per week for 99 Occurrences starting 01/16/2023 until 01/16/2024 End: 12-23-2024 PT panel - Platelet poor plasma by Coagulation assay PROTHROMBIN TIME Lab STAT care home current use of anticoagulant 24 Occurrences starting 12/24/2023 until 12/23/2024 [facility] Work Phone: Comment on above: 24 Occurrences start ing 12/24/2023 until 12/23/2024 End: 01-25-2023 Us soft tissue head & neck real time imge docm US THYROID/PARATHYROID Radiology Routine Thyroid nodule 1 Occurrences starting 12/26/2021 until 01/25/2023 [facility] Work Phone: Comment on above: 1 Occurrences starti ng 12/26/2021 until 01/25/2023 [facility] Immunizations Immunization Date Immunization Notes Care Provider [facility] 12-03-2023 influenza virus vacc ine, unspecified formulation Stas Mora MD Work Phone: [facility] 01-10-2023 influenza (HD-IIV4) vaccine, age 65+ yr, high dose, quadrivalent, PF (FLUZONE HIGH-DOSE) Coretta Jalloh [facility] 01-10-2023 influenza virus vacc ine, unspecified formulation Coretta Jalloh [facility] 12-26-2021 influenza, high-dose , quadrivalent vaccine (FLUZONE HIGH DOSE QUADRIVALENT) Stas Mora MD Work Phone: [facility] 12-26-2021 influenza virus vacc ine, unspecified formulation Senia Phillips [facility] 02-27-2021 tetanus toxoid, redu natividad diphtheria toxoid, and acellular pertussis vaccine, adsorbed Stas Mora MD Work Phone: [facility] 02-27-2021 zoster vaccine recombinant Stas Mora MD Work Phone: [facility] 12-25-2020 Covid (Pfizer) Dr. Stas gonzales Work Phone: [facility] 12-10-2020 influenza (HD-IIV4) vaccine, age 65+ yr, high dose, quadrivalent, PF (FLUZONE HIGH-DOSE) Coretta Jalloh [facility] 12-10-2020 influenza, high dose seasonal, preservative-free Stas Mora MD Work Phone: [facility] 09-17-2020 zoster vaccine recombinant Stas Mora MD Work Phone: [facility] 05-09-2020 Covid (Pfizer) Dr. Stas gonzales Work Phone: [facility] 04-18-2020 Covid (Pfizer) Dr. Stas gonzales Work Phone: [facility] 12-24-2016 influenza, high dose seasonal, preservative-free Stas Mora MD Work Phone: [facility] 12-22-2015 Influenza virus vaccine W [facility] 12-22-2015 influenza, seasonal, injectable, preservative free Stas Mora MD Work Phone: [facility] Work Phone: 01-30-2014 influenza, high dose seasonal, preservative-free Stas Mora MD Work Phone: [facility] Work Phone: 01-24-2013 influenza virus vacc ine, unspecified formulation Stas Mora MD Work Phone: [facility] 02-22-2008 pneumococcal polysaccharide vaccine, 23 valent Stas Mora MD Work Phone: [facility] Work Phone: 02-22-2008 tetanus and diphther ia toxoids, adsorbed, preservative free, for adult use (2 Lf of tetanus toxoid and 2 Lf of diphtheria toxoid) Stas Mora MD Work Phone: [facility] Work Phone: Payers Date Payer Category Payer Self-pay [id number] 2022 Unknown [id number] 2016 [place] [id number] 2016-Present [phone] [address] [place] [address] O [id number] 2016 Medicare [place] [id number] 2016-Present [phone] [address] [place] [address] O [id number] 2016 [place] Care[place] [id number] 2016 Medicare [id number] 1935 Unknown [id number]. [id number] 1935 Unknown [id number] 2.16.840.1.192468.3.579. 2.627 Unknown VA AUTH REQUIR ED SEE NOTE [id number] Unknown VA AUTH REQUIR ED SEE NOTE . [id number] Unknown [id number] 2.16.840.1.833056.3.579. 2.462 Unknown [id number] 2.16.840.1.492572.3.579. 2.462 Unknown [id number] 2.16.840.1.231266.3.579. 2.462 Unknown [id number] 2.16.840.1.347543.3.579. 2.462 Unknown [id number] 2.16.840.1.702910.3.579. 2.462 Unknown [id number] 2.16.840.1.064473.3.579. 2.462 Unknown [id number] 2.16.840.1.587048.3.579. 2.462 Unknown [id number] 2.16.840.1.984724.3.579. 2.462 Unknown [id number] 2.16.840.1.719931.3.579. 2.462 Unknown [id number] 2.16.840.1.267854.3.579. 2.462 Unknown [id number] 2.16.840.1.000259.3.579. 2.462 Unknown [id number] 2.16.840.1.776049.3.579. 2.462 Unknown [id number] 2.16.840.1.399090.3.579. 2.462 Unknown [id number] 2.16.840.1.360478.3.579. 2.462 Unknown [id number] 2.16.840.1.732386.3.579. 2.462 Unknown [id number] 2.16.840.1.386371.3.579. 2.462 Unknown [id number] 2.16.840.1.890489.3.579. 2.462 Unknown [id number] 2.16.840.1.853547.3.579. 2.462 Social History Date Type Detail Facility Start: 05-04-2017 End: 12-26-2021 Tobacco smoking status NHIS Ex-smoker [facility] Start: 02-15-2021 End: 07-28-2024 Alcohol intake Current non-drinker of alcohol (finding) [facility] Start: 08-26-2020 End: 08-29-2021 History SDOH Alcohol Frequency 2 [facility] Start: 08-26-2020 End: 08-29-2021 History SDOH Alcohol Std Drinks 1 [facility] Start: 08-26-2020 End: 08-29-2021 History SDOH Social Connections Confucianism 3 [facility] Start: 08-26-2020 End: 08-29-2021 History SDOH Social Connections Living 5 [facility] Start: 08-26-2020 History SDOH Physical Activity MPS 6 [facility] Start: 08-26-2020 Education 12 [facility] Start: 1935 Sex Assigned At Male [facility] Start: 02-11-2020 End: 12-26-2021 Exposure to SARS-CoV-2 (event) Not sure [facility] History of tobacco use Current smoker [facility] Start: 05-04-2017 End: 12-26-2021 Tobacco use and exposure Smokeless tobacco non-user [facility] Start: 12-21-2021 End: 02-10-2023 Tobacco smoking status KYIS Unknown if ever smoked [facility] Start: 12-22-2021 Non-smoker [facility] Start: 12-26-2021 Tobacco Comment 30 yaers ago [facility] Start: 02-28-2020 End: 08-29-2021 History of Social function [facility] Start: 02-28-2020 End: 08-29-2021 Social connection and isolation panel [facility] Do you belong to any clubs or organizations such as mandaen groups, unions, fraternal or athletic groups, or school groups? No [facility] Are you now , , , , never or living with a partner? [facility] How often to you hav e a drink containing alcohol? Monthly or less [facility] How many standard dr inks containing alcohol do you have on a typical day? 1 or 2 [facility] How often do you hav e 6 or more drinks on 1 occasion? Never [facility] How hard is it for y ou to pay for the very basics like food, housing, medical care, and heating Not hard at all [facility] Do you feel stress - tense, restless, nervous, or anxious, or unable to sleep at night because your mind is troubled all the time - these days [OSQ] Not at all [facility] (I/We) worried velvet er (my/our) food would run out before (I/we) got money to buy more. Never true [facility] Start: 08-26-2020 Gender identity Identifies as male gender (finding) [facility] Start: 08-26-2020 Sexual orientation Heterosexual (finding) [facility] Sex Assigned At Sex [facility] Are you now , , , , never or living with a partner? [facility] How often to you hav e a drink containing alcohol? 2-4 times a month [facility] Goals Date Patient Goal Desired Activity /State Functional Status Date Assessment Result Facility 09-06-2024 Functional status Ambulates [facility] Work Phone: 07-26-2024 Total score [AUDIT-C] 1 07/27/19 25 6:26 PM EDT User, Olena [facility] 07-26-2024 Within the last year , have you been humiliated or emotionally abused in other ways by your partner or ex-partner? No 07/26/2024 6:26 PM EDT User, [email or web address] 07-26-2024 Within the last year , have you been afraid of your partner or ex-partner? No 07/26/2024 6:26 PM EDT [facility] 07-26-2024 Within the last year , have you been raped or forced to have any kind of sexual activity by your partner or ex-partner? No 07/26/2024 6:26 PM EDT [facility] 07-26-[facility]24 Within the last year , have you been kicked, hit, slapped, or otherwise physically hurt by your partner or ex-partner? No 07/26/2024 6:26 PM EDT User, Mychart No [facility] 07-26-2024 How often to you hav e a drink containing alcohol? Monthly or less 07/26/2024 6:26 PM EDT User, Mychart Monthly or less [facility] 07-26-[address] inks containing alcohol do you have on a typical day? 1 or 2 07/26/2024 6:26 PM EDT User, Mychart 1 or 2 [facility] 07-26-2024 How often do you hav e 6 or more drinks on 1 occasion? Never 07/26/2024 6:26 PM EDT User, Mychart Never [facility] 11-17-2022 Functional Status Up ad tara [facility] 11-17-2022 Functional Status Identified as high risk, Fall ID band on, Room located near nursing station [facility] 12-22-2021 Functional status Ambulates;Chair [facility] Work Phone: 07-02-2016 Are you deaf, or do you have serious difficulty hearing No 07/02/2016 2:52 PM Anita Bentley, DO No [facility] Work Phone: 07-02-2016 Are you blind, or do you have serious difficulty seeing, even when wearing glasses No 07/02/2016 2:52 PM Anita Bentley, DO No [facility] 07-02-2016 Do you have serious difficulty walking or climbing stairs No 07/02/2016 2:52 PM Anita Bentley, DO No [facility] 07-02-2016 Do you have difficul ty dressing or bathing No 07/02/2016 2:52 PM Anita Bentley, DO No [facility] 07-02-2016 Because of a physica l, mental, or emotional condition, do you have difficulty doing errands alone such as visiting a physician's office or shopping No 07/02/2016 2:52 PM Anita Bentley, DO No [facility] Mental Status Date Assessment Result Facility 09-06-2024 Cognitive function Voice/Name [facility] Work Phone: 09-05-2024 Cognitive function Appropriate;Cooperativ e [facility] Work Phone: 02-10-2023 Cognitive function Level Of Cons ciousness Awake;Alert;Appropriate;Fol lows Commands [facility] Work Phone: 11-17-2022 Mental Status Orientation Oriented x 4 [facility] 11-17-2022 Mental Status [facility] 12-22-2021 Cognitive function Voice/Name [facility] Work Phone: 12-21-2021 Cognitive function Voice/Name [facility] Work Phone: 07-02-2016 Because of a physica l, mental, or emotional condition, do you have serious difficulty concentrating, remembering, or making decisions No 07/02/2016 2:52 PM EDT Anita Zhang, DO No [facility] Clinical Notes 03-12-2020 to 09-21-2024 Telephone Encounter - Petty Vargas - 09/21/2024 9:21 AM EDTTelephone Encounter - Petty Vargas - 09/21/2024 9:21 AM EDT Note Date & Type Note Facility 09-21-2024 Telephone encounter Note Form atting of this note might be different from the original. [facility]. Maria Guadalupe states that he has been in there for two weeks. Please advise [facility] 09-21-2024 Miscellaneous Notes Formattin g of this note might be different from the original. [facility]. Maria Guadalupe states that he has been in there for two weeks. Please advise documented in this encounter [facility] 09-06-2024 Consult note [facility] 09-06-2024 Consult note Note Date/Time September 06, 2024 4:37pm [facility] Medical Records Department [address] [place] [address] Counseling Note - Pharmacy 09/06/24 1143 MR#: [id number] Acct: [id number] Name: ROBY FLORES Rep #:[id number] : 1935 89 From: Isabelle Summers PCP: Dr. Stas Mora MD Status:AD M IN Location: [place] [address] Pharmacy [place] Med Reconciliation Pharmacy Service has performed discharge medication reconciliation for this patient. The patient's discharge medication list was reviewed for discrepancies and discrepancies were resolved. Medications at Discharge Home Medications atorvastatin 40 mg tablet 40 mg PO QHS #30 tabs 12/22/21 lisinopril 10 mg tablet 10 mg PO DAILY #30 tabs 12/22/21 memantine 10 mg tablet 10 mg PO BID 09/01/24 rivastigmine 4.6 mg/24 hour transdermal patch 1 patch topical DAILY 09/01/24 polyethylene glycol 3350 17 gram/dose oral powder (Miralax) 17 g PO DAILY 1 month #510 grams 09/06/24 warfarin 2 mg tablet 2 mg PO .evening #30 tabs 09/06/24 09/06/24 1143 <Electronically signed by Isabelle Summers> Date _ Isabelle Summers Cosigner Signature (if applicable): Date CC: ~ Signed [facility] Work Phone: [phone] 710-155406-17-2025 Discharge summary Author Navid Dominguez [facility] Note Date/Time September 06, 2024 11:1 4am [facility] Medical Records Department [address] [place] [address] Discharge Summary 09/06/24 1109 MR#: [id number] Acct: [id number] Name: ROBY FLORES Rep #:[id number] : 1935 89 From: Navid Trejo PCP: Dr. Stas Mora MD Status:AD M IN Location: [facility] [id number] Providers Date of Admission: 09/02/24 Date of Discharge: 09/06/24 Primary Care Physician: Dr. Stas Mora MD Reason For Visit: DEBILITY, MECHANICAL FALL Diagnosis Discharge Diagnosis (1) Adult failure to thrive: Status: Acute Code(s): R62.7 - Adult failure to thrive (2) Fall: Status: Acute Code(s): W19.XXXA - Unspecified fall, initial encounter (3) Unable to ambulate: Status: Acute Code(s): R26.2 - Difficulty in walking, not elsewhere classified (4) Contusion of hip: Status: Acute Code(s): S70.00XA - Contusion of unspecified hip, initial encounter Plan 89-year-old gentleman was mainly admitted for debility and weakness related to mechanical fall and disequilibrium. #Debility and weakness due to mechanical falls * Patient admitted with a complaint of mechanical falls. He fell on the day of admission and also fell the day before. His legs just gave way. The EMS had to be called both times to get him up. * states the last time he fell was about 2 years ago. He is on Coumadin for A-fib. * Imaging done showed no evidence of any fractures. CT of the brain showed no evidence of intracranial bleed. * PT OT on board. Fall precautions. 09/05: For now they agree to continue Coumadin. Risk and benefit of anticoagulants including [facility]mad[facility]: INR 2.4. Hold warfarin today and resume tomorrow. H&H 10.8/33.6%, moderate chronic anemia # Fever * Patient developed a fever. Fever resolved and has not recurred. * Urinalysis showed no evidence of UTI. * Blood cultures ordered and patient started on IV vancomycin and Zosyn. * WBC today is down to 11.3. Respiratory panel was negative. Blood cultures negative after 48 hours. Antibiotics were discontinued #History of A-fib: * On Coumadin. INR is 1.9 today. Not on any rate or rhythm limiting medication. * I spoke to the patient's extensively about the risk of brain bleed with his history of falls as well as the risk of stroke if he is taking of the Coumadin and patient and his agreed to continue warfarin * The daughter is the healthcare power of energy attorney. #History of dementia: On rivastigmine #Dyslipidemia: On statin #Benign essential hypertension: On lisinopril. DVT prophylaxis: * Resume Coumadin today. INR 1.8. Daughter still thinking about that she wants him to continue otherwise. Code status: DNRCCA no intubation * Discharge medication reconciliation done. Discharge follow-up instructions completed. Discharge process discussed with the patient and all questions wereanswered to patient's satisfaction. Follow with PCP in 1 to 2 weeks Total time spent, exact 35 minutes on discharge meds reconciliation, examination, coordination of care with nurses and ancillary staff, review of imaging and blood test and discussion with the patient on follow-up instructions. Medications at Discharge Home Medications atorvastatin 40 mg tablet 40 mg PO QHS #30 tabs 12/22/21 lisinopril 10 mg tablet 10 mg PO DAILY #30 tabs 12/22/21 memantine 10 mg tablet 10 mg PO BID 09/01/24 rivastigmine 4.6 mg/24 hour transdermal patch 1 patch topical DAILY 09/01/24 polyethylene glycol 3350 17 gram/dose oral powder (Miralax) 17 g PO DAILY 1 month #510 grams 09/06/24 warfarin 2 mg tablet 2 mg PO .evening #30 tabs 09/06/24 Physical Exam Narrative Seen and examined. Patient was admitted with mechanical fall. Waiting for pre-CERT. Patient and her agreed for continuation of blood thinner/Coumadin. Risk and benefit explained and patient and family agreed to take warfarin. Advised to hold warfarin today Physical exam General: Alert, Oriented x3, Cooperative HEENT: Atraumatic, PERRLA, EOMI, Normocephalic. Oral: No Gingival or Mucosal Lesions/ Ulcerations Neck: Supple, No JVD, Negative Carotid Bruits Chest wall/Lungs: Air entry diminished in bilateral lung bases. No crepitation/rhonchi Cardiovascular: Irregular rhythm, A-fib normal S1,S2, No M/G/R Abdomen: Bowel Sounds Present, Soft, Non Tender, Non-Distended : No dysuria. No renal angle tenderness. No suprapubic tenderness. Extremities: No edema, Capillary Refill Less than 3 Seconds Skin: No rashes, No breakdown Musculoskeletal: No Tenderness to Palpation of Joints or Extremities Neurological: Cranial nerves II-XII grossly intact, DTR 2+/4. No acute focal neurological deficit. Psych/Mental Status: Flat affect. Weight / BMI Weight Weight: 159 lb 9.835 oz Body Mass Index (BMI) 21.6 ABG / Lab / Microbiology Data 09/06/24 04:00 09/06/24 04:00 Laboratory: Laboratory Results - last 24 hr 09/05/24 16:55: PT 24.7 H, INR 2.2 09/06/24 04:00: WBC 7.8, RBC 4.39 L, Hgb 10.8 L, Hct 33.6 L, MCV 76.5 L, MCH 24.6 L, MCHC 32.1, RDW Std Deviation 48.2 H, RDW Coeff of Boom 17.4 H, Plt Count 325, MPV 9.4, Immature Gran % (Auto) 0.400, Neut % (Auto) 66.8, Lymph % (Auto) 16.4 L, [place] % (Auto) 9.1, Eos % (Auto) 6.3 H, Baso % (Auto) 1.0, Absolute Neuts(auto) 5.2, Absolute Lymphs (auto) 1.28, Nucleated RBC % 0, PT 27.0 H, INR 2.4, Sodium 141, Potassium 3.5, Chloride 106, Carbon Dioxide 24.9, Anion Gap 10, BUN 11, Creatinine 0.73, Estim Creat Clear Calc 64.10, Est GFR (MDRD) Non-Af 87, BUN/Creatinine Ratio 14.4, Glucose 109 H, Calcium 8.7 Microbiology: Microbiology 09/01/24 20:45 Blood Culture (Wb) - Right Hand Blood Culture - Preliminary No growth in 48 hours. 09/01/24 20:45 Blood Culture (Wb) - Left Hand Blood Culture - Preliminary No growth in 48 hours. 09/01/24 20:24 Mucosa - Nasopharyngeal Respiratory Panel (PCR) - Final 09/01/24 20:56 Nasal Secretion SARS-CoV-2 Antigen (Rapid) - Final D/C Instructions DC O2, CPAP, BIPAP Needs Home O2 Discharge instructions: No Meaningful Use Info Meaningful Use Meaningful Use Diagnoses (Choose all that apply): None applicable Ischemic Stroke Statin Dosing Therapy Reference: STATIN DOSE THERAPY REFERENCE: * Patients > 75 years receive moderate or high dose statin therapy. * Patients 75 years or YOUNGER should receive HIGH intensity statin dose unless contraindicated. You will be required to document reason for non-treatment if statin daily dose does not meet guidelines. HIGH DOSE STATIN THERAPY DAILY Atorvastatin > than or = to 40 mg Rosuvastatin > than or = to 20 mg Amlodipine + Atorvastatin > than or = to 2.5/40 mg Ezetimibe + Simvastatin 10/80 mg Simvastatin 80mg Discharge Plan Admission Admit Date/Time: 09/02/24 12:49 Primary Reason for Your Visit: Mechanical fall Attending Provider: Navid Dominguez Primary Care Provider: Stas Mora Consulting Providers: Kathy Wells Instructions Additional Instructions / Restrictions: Start warfarin from tomorrow. Discharge Orders/Prescriptions Prescriptions: New polyethylene glycol 3350 [Miralax] 17 gram/dose powder 17 g PO DAILY 30 Days Qty: 510 0RF warfarin 2 mg tablet 2 mg PO .evening Qty: 30 0RF Rx Instructions: Hold if INR more than 2.5. Start from 09/07/2024 Continued atorvastatin 40 mg Tablet 40 mg PO QHS Qty: 30 0RF lisinopril 10 mg tablet 10 mg PO DAILY Qty: 30 0RF memantine 10 mg tablet 10 mg PO BID rivastigmine 4.6 mg/24 hour patch 24 hour 1 patch topical DAILY Discontinued warfarin 2.5 MG tablet 2.5 mg PO DAILY Referrals / Follow Up: Stas Mora MD [Primary Care Provider] - Disposition Disposition (needs filled in before D/C Order can be placed): Half-Way Facility Charges/Coding Visit Charges Inpatient E&M: 12433 Disch Hosp >30min 09/06/24 1114 <Electronically signed by Navid Dominguez MD> Cosigner Signature (if applicable): CC: Dr. Stas Mora MD; Dr. Navid Dominguez MD~ Signed [facility] Work Phone: [phone] 238-820206-17-2025 Discharge summary Author Navid Dominguez [facility] Note Date/Time September 06, 2024 11:0 9am [facility] Medical Records Department [address] [place] [address] Transfer to [facility] MR#: [id number] Acct: [id number] Name: ROBY FLORES Rep #:[id number] : 1935 89 From: Navid Trejo PCP: Dr. Stas Mora MD Status:AD M IN Certification of patient admission REQUIRED AT TIME OF ADMISSION. I CERTIFY THAT POST-HOSPITAL ECF SERVICES ARE REQUIRED TO BE GIVEN ON AN IN-PATIENT BASIS BECAUSE OF THE ABOVE NAMED PATIENT'S NEED FOR LONGTERM CARE ON A CONTINUING BASIS FOR THE CONDITION(S) FOR WHICH HE/SHE WAS RECEIVING IN-PATIENT HOSPITAL SERVICES PRIOR TO HIS/HER TRANSFER TO THE ECF. 09/06/24 1109<Electronically signed by Navid Dominguez MD> Diet Diet Order/Speech Therapy: INPATIENT Hospital Diet / Speech Therapy Order(s) 09/01/24 13:31 Diet: Regular - General Food consistency:: Regular Liquid Consistency:: Regular/Thin Routine Orders/Code Status Suppository Type: Dulcolax 10mg Suppository Frequency: Daily PRN Routine Lab Work: INR (Twice a week.) DC O2, CPAP, BIPAP needs Home O2 Discharge instructions: No Wound(s) skin tear to left elbow: Wound Type: Skin Tear Therapies Extremity Affected:: Bilateral Lower Physical Therapy: Eval and Treat Occupational Therapy: Eval and Treat Speech Therapy: Eval and Treat Problem/Diagnosis (1) Adult failure to thrive: Status: Acute Code(s): R62.7 - Adult failure to thrive (2) Fall: Status: Acute Code(s): W19.XXXA - Unspecified fall, initial encounter (3) Unable to ambulate: Status: Acute Code(s): R26.2 - Difficulty in walking, not elsewhere classified (4) Contusion of hip: Status: Acute Code(s): S70.00XA - Contusion of unspecified hip, initial encounter Plan 89-year-old gentleman was mainly admitted for debility and weakness related to mechanical fall and disequilibrium. #Debility and weakness due to mechanical falls * Patient admitted with a complaint of mechanical falls. He fell on the day of admission and also fell the day before. His legs just gave way. The EMS had to be called both times to get him up. * states the last time he fell was about 2 years ago. He is on Coumadin for A-fib. * Imaging done showed no evidence of any fractures. CT of the brain showed no evidence of intracranial bleed. * PT OT on board. Fall precautions. 09/05: For now they agree to continue Coumadin. Risk and benefit of anticoagulants including Coumadin explained to the patient and his near thebedside. # Fever * Patient developed a fever. Fever resolved and has not recurred. * Urinalysis showed no evidence of UTI. * Blood cultures ordered and patient started on IV vancomycin and Zosyn. * WBC today is down to 11.3. Respiratory panel was negative. Blood cultures negative after 48 hours. Antibiotics were discontinued #History of A-fib: * On Coumadin. INR is 1.9 today. Not on any rate or rhythm limiting medication. * I spoke to the patient's extensively about the risk of brain bleed with his history of falls as well as the risk of stroke if he is taking of the Coumadin and patient and his agreed to continue warfarin * The daughter is the healthcare power of energy attorney. #History of dementia: On rivastigmine #Dyslipidemia: On statin #Benign essential hypertension: On lisinopril. DVT prophylaxis: * Resume Coumadin today. INR 1.8. Daughter still thinking about that she wants him to continue otherwise. Code status: DNRCCA no intubation * Disposition: Awaiting placement. PT OT on board. Allergies/Procedures Done in Hospital Allergies No Known Allergies Allergy (Verified 09/01/24 07:35) Type of Care/Length of Stay Estimated LOS: Convalescent Care Less Than 30 days Type of Care Needed: Skilled Rehab Potential: Good Prognosis: Good Additional Orders/Day of Discharge Day of Discharge: 09/06/24 Dietary and Speech Recommendations Dietitian Recommendations/Changes: Will continue liberalized regular diet with consistency/texture as per [employer]. Will continue 120mL ensure plus HP 4 times per day w/ medpass. Monitor blood glucose level and restrict dietary carbohydrate as needed. Trend weights closely and adjust ONS as needed to optimize nutrition and preventenergy/pro depletion. Discharge Plan Admission Admit Date/Time: 09/02/24 12:49 Primary Reason for Your Visit: Mechanical fall Attending Provider: Navid Dominguez Primary Care Provider: Stas Mora Consulting Providers: Kathy Wells Discharge Orders/Prescriptions Prescriptions: New polyethylene glycol 3350 [Miralax] 17 gram/dose powder 17 g PO DAILY 30 Days Qty: 510 0RF Continued warfarin 2.5 MG tablet 2.5 mg PO DAILY atorvastatin 40 mg Tablet 40 mg PO QHS Qty: 30 0RF lisinopril 10 mg tablet 10 mg PO DAILY Qty: 30 0RF memantine 10 mg tablet 10 mg PO BID rivastigmine 4.6 mg/24 hour patch 24 hour 1 patch topical DAILY Referrals / Follow Up: Stas Mora MD [Primary Care Provider] - Disposition Disposition (needs filled in before D/C Order can be placed): Half-Way Facility 09/06/24 1109 <Electronically signed by Navid Dominguez MD> Cosigner Signature (if applicable): CC: Dr. Stas Mora MD; Dr. Kathy Wells MD ~ [facility] Work Phone: [phone]) 474-555106-17-2025 Discharge summary [facility] Medical Records Department [address] [place] [address] Discharge Summary 09/06/24 1109 MR#: [id number] Acct: [id number] Name: ROBY FLORES Rep #:[id number] : 1935 89 From: Navid Trejo PCP: Dr. Stas Mora MD Status:AD M IN [facility] Date of Admission: 09/02/24 Date of Discharge: 09/06/24 Primary Care Physician: Dr. Stas Mora MD Reason For Visit: DEBILITY, MECHANICAL FALL Diagnosis Discharge Diagnosis (1) Adult failure to thrive: Status: Acute Code(s): R62.7 - Adult failure to thrive (2) Fall: Status: Acute Code(s): W19.XXXA - Unspecified fall, initial encounter (3) Unable to ambulate: Status: Acute Code(s): R26.2 - Difficulty in walking, not elsewhere classified (4) Contusion of hip: Status: Acute Code(s): S70.00XA - Contusion of unspecified hip, initial encounter Plan 89-year-old gentleman was mainly admitted for debility and weakness related to mechanical fall and disequilibrium. #Debility and weakness due to mechanical falls * Patient admitted with a complaint of mechanical falls. He fell on the day of admission and also fell the day before. His legs just gave way. The EMS had to be called both times to get him up. * states the last time he fell was about 2 years ago. He is on Coumadin for A-fib. * Imaging done showed no evidence of any fractures. CT of the brain showed no evidence of intracranial bleed. * PT OT on board. Fall precautions. 09/05: For now they agree to continue Coumadin. Risk and benefit of anticoagulants including Coumadin [facility] 09/06: INR 2.4. Hold warfarin today and resume tomorrow. H&H 10.8/33.6%, moderate chronic anemia # Fever * Patient developed a fever. Fever resolved and has not recurred. * Urinalysis showed no evidence of UTI. * Blood cultures ordered and patient started on IV vancomycin and Zosyn. * WBC today is down to 11.3. Respiratory panel was negative. Blood cultures negative after 48 hours. Antibiotics were discontinued #History of A-fib: * On Coumadin. INR is 1.9 today. Not on any rate or rhythm limiting medication. * I spoke to the patient's extensively about the risk of brain bleed with his history of fallsas well as the risk of stroke if he is taking of the Coumadin and patient and his agreed to continue warfarin * The daughter is the healthcare power of energy attorney. #History of dementia: On rivastigmine #Dyslipidemia: On statin #Benign essential hypertension: On lisinopril. DVT prophylaxis: * Resume Coumadin today. INR 1.8. Daughter still thinking about that she wants him to continue otherwise. Code status: DNRCCA no intubation * Discharge medication reconciliation done. Discharge follow-up instructions completed. Discharge process discussed with the patient and all questions wereanswered to patient's satisfaction. Follow with PCP in 1 to 2 weeks Total time spent, exact 35 minutes on discharge meds reconciliation, examination, coordination of care with nurses and ancillary staff, review of imaging and blood test and discussion with the patient on follow-up instructions. Medications at Discharge Home Medications atorvastatin 40 mg tablet 40 mg PO QHS #30 tabs 12/22/21 lisinopril 10 mg tablet 10 mg PO DAILY #30 tabs 12/22/21 memantine 10 mg tablet 10 mg PO BID 09/01/24 rivastigmine 4.6 mg/24 hour transdermal patch 1 patch topical DAILY 09/01/24 polyethylene glycol 3350 17 gram/dose oral powder (Miralax) 17 g PO DAILY 1 month #510 grams 09/06/24 warfarin 2 mg tablet 2 mg PO .evening #30 tabs 09/06/24 Physical Exam Narrative Seen and examined. Patient was admitted with mechanical fall. Waiting for pre-CERT. Patient and her agreed for continuation of blood thinner/Coumadin. Risk and benefit explained and patient and family agreed to take warfarin. Advised to hold warfarin today Physical exam General: Alert, Oriented x3, Cooperative HEENT: Atraumatic, PERRLA, EOMI, Normocephalic. Oral: No Gingival or Mucosal Lesions/ Ulcerations Neck: Supple, No JVD, Negative Carotid Bruits Chest wall/Lungs: Air entry diminished in bilateral lung bases. No crepitation/rhonchi Cardiovascular: Irregular rhythm, A-fib normal S1,S2, No M/G/R Abdomen: Bowel Sounds Present, Soft, Non Tender, Non-Distended : No dysuria. No renal angle tenderness. No suprapubic tenderness. Extremities: No edema, Capillary Refill Less than 3 Seconds Skin: No rashes, No breakdown Musculoskeletal: No Tenderness to Palpation of Joints or Extremities Neurological: Cranial nerves II-XII grossly intact, DTR 2+/4. No acute focal neurological deficit. Psych/Mental Status: Flat affect. Weight / BMI Weight Weight: 159 lb 9.835 oz Body Mass Index (BMI) 21.6 ABG / Lab / Microbiology Data 09/06/24 04:00 09/06/24 04:00 Laboratory: Laboratory Results - last 24 hr 09/05/24 16:55: PT 24.7 H, INR 2.2 09/06/24 04:00: WBC 7.8, RBC 4.39 L, Hgb 10.8 L, Hct 33.6 L, MCV 76.5 L, MCH 24.6 L, MCHC 32.1, RDWStd Deviation 48.2 H, RDW Coeff of Boom 17.4 H, Plt Count 325, MPV 9.4, Immature Gran % (Auto) 0.400, Neut % (Auto) 66.8, Lymph % (Auto) 16.4 L, [place] % (Auto) 9.1, Eos % (Auto) 6.3 H, Baso % (Auto) 1.0, Absolute Neuts(auto) 5.2, Absolute Lymphs (auto) 1.28, Nucleated RBC % 0, PT 27.0 H, INR 2.4, Sodium 141, Potassium 3.5, Chloride 106, Carbon Dioxide 24.9, Anion Gap 10, BUN 11, Creatinine 0.73, Estim Creat Clear Calc 64.10, Est GFR (MDRD) Non-Af 87, BUN/Creatinine Ratio 14.4, Glucose 109 H, Calcium 8.7 Microbiology: Microbiology 09/01/24 20:45 Blood Culture (Wb) - Right Hand Blood Culture - Preliminary No growth in 48 hours. 09/01/24 20:45 Blood Culture (Wb) - Left Hand Blood Culture - Preliminary No growth in 48 hours. 09/01/24 20:24 Mucosa - Nasopharyngeal Respiratory Panel (PCR) - Final 09/01/24 20:56 Nasal Secretion SARS-CoV-2 Antigen (Rapid) - Final D/C Instructions DC O2, CPAP, BIPAP Needs Home O2 Discharge instructions: No Meaningful Use Info Meaningful Use Meaningful Use Diagnoses (Choose all that apply): None applicable Ischemic Stroke Statin Dosing Therapy Reference: STATIN DOSE THERAPY REFERENCE: * Patients > 75 years receive moderate or high dose statin therapy. * Patients 75 years or YOUNGER should receive HIGH intensity statin dose unless contraindicated. You will be required to document reason for non-treatment if statin daily dose does not meet guidelines. HIGH DOSE STATIN THERAPY DAILY Atorvastatin > than or = to 40 mg Rosuvastatin > than or = to 20 mg Amlodipine + Atorvastatin > than or = to 2.5/40 mg Ezetimibe + Simvastatin 10/80 mg Simvastatin 80mg Discharge Plan Admission Admit Date/Time: 09/02/24 12:49 Primary Reason for Your Visit: Mechanical fall Attending Provider: Navid Dominguez Primary Care Provider: Stas Mora Consulting Providers: Kathy Wells Instructions Additional Instructions / Restrictions: Start warfarin from tomorrow. Discharge Orders/Prescriptions Prescriptions: New polyethylene glycol 3350 [Miralax] 17 gram/dose powder 17 g PO DAILY 30 Days Qty: 510 0RF warfarin 2 mg tablet 2 mg PO .evening Qty: 30 0RF Rx Instructions: Hold if INR more than 2.5. Start from 09/07/2024 Continued atorvastatin 40 mg Tablet 40 mg PO QHS Qty: 30 0RF lisinopril 10 mg tablet 10 mg PO DAILY Qty: 30 0RF memantine 10 mg tablet 10 mg PO BID rivastigmine 4.6 mg/24 hour patch 24 hour 1 patch topical DAILY Discontinued warfarin 2.5 MG tablet 2.5 mg PO DAILY Referrals / Follow Up: Stas Mora MD [Primary Care Provider] - Disposition Disposition (needs filled in before D/C Order can be placed): Half-Way Facility Charges/Coding Visit Charges Inpatient E&M: 25354 Disch Hosp >30min 09/06/24 1114 Cosigner Signature (if applicable): CC: Dr. Stas Mora MD; Dr. Navid Dominguez MD~ Signed [facility]06-17-2025 Discharge summary [facility] Medical Records Department [address] [place] [address] Transfer to [facility] MR#: [id number] Acct: [id number] Name: ROBY FLORES Rep #:[id number] : 1935 89 From: Navid Trejo PCP: Dr. Stas Mora MD Status:AD M IN Certification of patient admission REQUIRED AT TIME OF ADMISSION. I CERTIFY THAT POST-HOSPITAL F SERVICES ARE REQUIRED TO BE GIVEN ON AN IN-PATIENT BASIS BECAUSE OF THE ABOVE NAMED PATIENT'S NEED FOR LONGTERM CARE ON A CONTINUING BASIS FOR THE CONDITION(S) FOR WHICH HE/SHE WAS RECEIVING IN-PATIENT HOSPITAL SERVICES PRIOR TO HIS/HER TRANSFER TO THE [facility]. 09/06/24 1109 Diet Diet Order/Speech Therapy: INPATIENT Hospital Diet / Speech Therapy Order(s) 09/01/24 13:31 Diet: Regular - General Food consistency:: Regular Liquid Consistency:: Regular/Thin Routine Orders/Code Status Suppository Type: Dulcolax 10mg Suppository Frequency: Daily PRN Routine Lab Work: INR (Twice a week.) DC O2, CPAP, BIPAP needs Home O2 Discharge instructions: No Wound(s) skin tear to left elbow: Wound Type: Skin Tear Therapies Extremity Affected:: Bilateral Lower Physical Therapy: Eval and Treat Occupational Therapy: Eval and Treat Speech Therapy: Eval and Treat Problem/Diagnosis (1) Adult failure to thrive: Status: Acute Code(s): R62.7 - Adult failure to thrive (2) Fall: Status: Acute Code(s): W19.XXXA - Unspecified fall, initial encounter (3) Unable to ambulate: Status: Acute Code(s): R26.2 - Difficulty in walking, not elsewhere classified (4) Contusion of hip: Status: Acute Code(s): S70.00XA - Contusion of unspecified hip, initial encounter Plan 89-year-old gentleman was mainly admitted for debility and weakness related to mechanical fall and disequilibrium. #Debility and weakness due to mechanical falls * Patient admitted with a complaint of mechanical falls. He fell on the day of admission and also fell the day before. His legs just gave way. The EMS had to be called both times to get him up. * states the last time he fell was about 2 years ago. He is on Coumadin for A-fib. * Imaging done showed no evidence of any fractures. CT of the brain showed no evidence of intracranial bleed. * PT OT on board. Fall precautions. 09/05: For now they agree to continue Coumadin. Risk and benefit of anticoagulants including Coumadin [facility] the [facility] # Fever * Patient developed a fever. Fever resolved and has not recurred. * Urinalysis showed no evidence of UTI. * Blood cultures ordered and patient started on IV vancomycin and Zosyn. * WBC today is down to 11.3. Respiratory panel was negative. Blood cultures negative after 48 hours. Antibiotics were discontinued #History of A-fib: * On Coumadin. INR is 1.9 today. Not on any rate or rhythm limiting medication. * I spoke to the patient's extensively about the risk of brain bleed with his history of fallsas well as the risk of stroke if he is taking of the Coumadin and patient and his agreed to continue warfarin * The daughter is the healthcare power of energy attorney. #History of dementia: On rivastigmine #Dyslipidemia: On statin #Benign essential hypertension: On lisinopril. DVT prophylaxis: * Resume Coumadin today. INR 1.8. Daughter still thinking about that she wants him to continue otherwise. Code status: DNRCCA no intubation * Disposition: Awaiting placement. PT OT on board. Allergies/Procedures Done in Hospital Allergies No Known Allergies Allergy (Verified 09/01/24 07:35) Type of Care/Length of Stay Estimated LOS: Convalescent Care Less Than 30 days Type of Care Needed: Skilled Rehab Potential: Good Prognosis: Good Additional Orders/Day of Discharge Day of Discharge: 09/06/24 Dietary and Speech Recommendations Dietitian Recommendations/Changes: Will continue liberalized regular diet with consistency/texture as per [employer]. Will continue 120mL ensure plus HP 4 times per day w/ medpass. Monitor blood glucose level and restrict dietary carbohydrate as needed. Trend weights closely and adjust ONS as needed to optimize nutrition and preventenergy/pro depletion. Discharge Plan Admission Admit Date/Time: 09/02/24 12:49 Primary Reason for Your Visit: Mechanical fall Attending Provider: Navid Dominguez Primary Care Provider: Stas Mora Consulting Providers: Kathy Wells Discharge Orders/Prescriptions Prescriptions: New polyethylene glycol 3350 [Miralax] 17 gram/dose powder 17 g PO DAILY 30 Days Qty: 510 0RF Continued warfarin 2.5 MG tablet 2.5 mg PO DAILY atorvastatin 40 mg Tablet 40 mg PO QHS Qty: 30 0RF lisinopril 10 mg tablet 10 mg PO DAILY Qty: 30 0RF memantine 10 mg tablet 10 mg PO BID rivastigmine 4.6 mg/24 hour patch 24 hour 1 patch topical DAILY Referrals / Follow Up: Stas Mora MD [Primary Care Provider] - Disposition Disposition (needs filled in before D/C Order can be placed): Half-Way Facility 09/06/24 1109 Cosigner Signature (if applicable): CC: Dr. Stas Mora MD; Dr. Kathy Wells MD ~ [facility]06-17-2025 [facility] Medical Records Department [address] [place] [address] Discharge Summary 09/06/24 1109 MR#: [id number] Acct: [id number] Name: ROBY FLORES Rep #: [id number] : 1935 89 From: Navid Dominguez MD PCP: Dr. Stas Mora MD Status:ADM IN [facility] Prov[facility] Date of Admission: 09/02/24 Date of Discharge: 09/06/24 Primary Care Physician: Dr. Stas Mora MD Reason For Visit: DEBILITY, MECHANICAL FALL Diagnosis Discharge Diagnosis (1) Adult failure to thrive: Status: Acute Code(s): R62.7 - Adult failure to thrive (2) Fall: Status: Acute Code(s): W19.XXXA - Unspecified fall, initial encounter (3) Unable to ambulate: Status: Acute Code(s): R26.2 - Difficulty in walking, not elsewhere classified (4) Contusion of hip: Status: Acute Code(s): S70.00XA - Contusion of unspecified hip, initial encounter Plan 89-year-old gentleman was mainly admitted for debility and weakness related to mechanical fall and disequilibrium. #Debility and weakness due to mechanical falls * Patient admitted with a complaint of mechanical falls. He fell on the day of admission and also fell the day before. His legs just gave way. The EMS had to be called both times to get him up. * states the last time he fell was about 2 years ago. He is on Coumadin for A-fib. * Imaging done showed no evidence of any fractures. CT of the brain showed no evidence of intracranial bleed. * PT OT on board. Fall precautions. 09/05: For now they agree to continue Coumadin. Risk and benefit of anticoagulants including Coumadin explained to the patient and his near the bedside. 09/06: INR 2.4. Hold warfarin today and resume tomorrow. H H 10.8/33.6%, moderate chronic anemia # Fever * Patient developed a fever. Fever resolved and has not recurred. * Urinalysis showed no evidence of UTI. * Blood cultures ordered and patient started on IV vancomycin and Zosyn. * WBC today is down to 11.3. Respiratory panel was negative. Blood cultures negative after 48 hours. Antibiotics were discontinued #History of A-fib: * On Coumadin. INR is 1.9 today. Not on any rate or rhythm limiting medication. * I spoke to the patient's extensively about the risk of brain bleed with his history of falls as well as the risk of stroke if he is taking of the Coumadin and patient and his agreed to continue warfarin * The daughter is the healthcare power of energy attorney. #History of dementia: On rivastigmine #Dyslipidemia: On statin #Benign essential hypertension: On lisinopril. DVT prophylaxis: * Resume Coumadin today. INR 1.8. Daughter still thinking about that she wants him to continue otherwise. Code status: DNRCCA no intubation * Discharge medication reconciliation done. Discharge follow-up instructions completed. Discharge process discussed with the patient and all questions were answered to patient's satisfaction. Follow with PCP in 1 to 2 weeks Total time spent, exact 35 minutes on discharge meds reconciliation, examination, coordination of care with nurses and ancillary staff, review of imaging and blood test and discussion with the patient on follow-up instructions. Medications at Discharge Home Medications atorvastatin 40 mg tablet 40 mg PO QHS #30 tabs 12/22/21 lisinopril 10 mg tablet 10 mg PO DAILY #30 tabs 12/22/21 memantine 10 mg tablet 10 mg PO BID 09/01/24 rivastigmine 4.6 mg/24 hour transdermal patch 1 patch topical DAILY 09/01/24 polyethylene glycol 3350 17 gram/dose oral powder (Miralax) 17 g PO DAILY 1 month #510 grams 09/06/24 warfarin 2 mg tablet 2 mg PO .evening #30 tabs 09/06/24 Physical Exam Narrative Seen and examined. Patient was admitted with mechanical fall. Waiting for pre-CERT. Patient and her agreed for continuation of blood thinner/Coumadin. Risk and benefit explained and patient and family agreed to take warfarin. Advised to hold warfarin today Physical exam General: Alert, Oriented x3, Cooperative HEENT: Atraumatic, PERRLA, EOMI, Normocephalic. Oral: No Gingival or Mucosal Lesions/ Ulcerations Neck: Supple, No JVD, Negative Carotid Bruits Chest wall/Lungs: Air entry diminished in bilateral lung bases. No crepitation/rhonchi Cardiovascular: Irregular rhythm, A-fib normal S1,S2, No M/G/R Abdomen: Bowel Sounds Present, Soft, Non Tender, Non-Distended : No dysuria. No renal angle tenderness. No suprapubic tenderness. Extremities: No edema, Capillary Refill Less than 3 Seconds Skin: No rashes, No breakdown Musculoskeletal: No Tenderness to Palpation of Joints or Extremities Neurological: Cranial nerves II-XII grossly intact, DTR 2+/4. No acute focal neurological deficit. Psych/Mental Status: Flat affect. Weight / BMI Weight Weight: 159 lb 9.835 oz Body Mass Index (BMI) 21.6 ABG / Lab / Microbiol (more content not included)...[facility] 09-05-2024 Progress note Author Navid Dominguez [facility] Note Date/Time September 05, 2024 4:15 pm [facility] Medical Records Department [address] [place] [address] Progress Note - Hospitalist 09/05/24 1608 MR#: [id number] Acct: [id number] Name: ROBY FLORES Rep #:[id number] : 1935 89 From: Navid Trejo PCP: Dr. Stas Mora MD Status:AD M IN [facility] Reason for Visit Reason for Visit: Diagnoses Difficulty in walking, not elsewhere classified (09/02/24) Adult failure to thrive (09/02/24) Abrasion of unspecified elbow, initial encounter (09/02/24) Contusion of unspecified hip, initial encounter (09/02/24) Unspecified fall, initial encounter (09/02/24) Objective Data Objective Data Vital Signs: Vital Signs Temp Pulse Resp BP Pulse Ox O2 Del Method O2 Flow Rate 98.2 F 65 18 148/67 H 99 Room Air 2 09/05/24 14:00 09/05/24 14:00 09/05/24 14:00 09/05/24 14:00 09/05/24 14:00 09/05/24 14:00 09/04/24 12:05 Oxygen Flow Rate (L/min) 2 Oxygen Delivery Method Room Air Weight: 159 lb 9.835 oz Body Mass Index (BMI) 21.6 Intake & Output: Intake and Output for Last 24 Hours 09/03/24 09/04/24 09/05/24 23:59 23:59 23:59 Intake Total 1840 / 1940 884.38 / 884.38 250 / 250 Output Total 200 / 300 350 / 350 Balance 1640 / 1640 534.38 / 534.38 250 / 250 Lab / Micro Data 09/05/24 06:55 09/05/24 06:55 Labs: Laboratory Results - last 24 hr 09/05/24 03:20: Urine Color Straw, Urine Clarity Clear, Urine pH 7.0, Ur Specific [place] 1.005, Urine Protein 15 H, Urine Glucose (UA) Normal, Urine Ketones Negative, Urine Occult Blood 25 H, Urine Nitrite Negative, Urine Bilirubin Negative, Urine Urobilinogen Normal, Ur Leukocyte Esterase Negative, Urine RBC 0-5 SEEN, Urine WBC 0-5 SEEN, Ur Squamous Epith Cells 0 SEEN, Urine Bacteria RARE, Urine Mucus 0 SEEN 09/05/24 06:55: WBC 9.8, RBC 4.63, Hgb 11.3 L, Hct 35.3 L, MCV 76.2 L, MCH 24.4 L, MCHC 32.0, RDW Std Deviation 47.9 H, RDW Coeff of Boom 17.6 H, Plt Count 329, MPV 9.3, Immature Gran % (Auto) 0.400, Neut % (Auto) 77.2 H, Lymph % (Auto) 9.8 L, [place] % (Auto) 7.9, Eos % (Auto) 4.0, Baso % (Auto) 0.7, Absolute Neuts (auto)7.6, Absolute Lymphs (auto) 0.96, Nucleated RBC % 0, Sodium 139, Potassium 3.3, Chloride 105, Carbon Dioxide 21.9, Anion Gap 12, BUN 8, Creatinine 0.62 L, EstimCreat Clear Calc 64.10, Est GFR (MDRD) Non-Af 91, BUN/Creatinine Ratio 13.4, Glucose 119 H, Calcium 8.6 Micro: Microbiology 09/01/24 20:45 Blood Culture (Wb) - Right Hand Blood Culture - Preliminary No growth in 48 hours. 09/01/24 20:45 Blood Culture (Wb) - Left Hand Blood Culture - Preliminary No growth in 48 hours. 09/01/24 20:24 Mucosa - Nasopharyngeal Respiratory Panel (PCR) - Final 09/01/24 20:56 Nasal Secretion SARS-CoV-2 Antigen (Rapid) - Final Physical Exam Narrative Seen and examined. Patient was admitted with mechanical fall. Waiting for pre-CERT. Patient and her agreed for continuation of blood thinner/Coumadin. Risk and benefit explained Physical exam General: Alert, Oriented x3, Cooperative HEENT: Atraumatic, PERRLA, EOMI, Normocephalic. Oral: No Gingival or Mucosal Lesions/ Ulcerations Neck: Supple, No JVD, Negative Carotid Bruits Chest wall/Lungs: Air entry diminished in bilateral lung bases. No crepitation/rhonchi Cardiovascular: Irregular rhythm, A-fib normal S1,S2, No M/G/R Abdomen: Bowel Sounds Present, Soft, Non Tender, Non-Distended : No dysuria. No renal angle tenderness. No suprapubic tenderness. Extremities: No edema, Capillary Refill Less than 3 Seconds Skin: No rashes, No breakdown Musculoskeletal: No Tenderness to Palpation of Joints or Extremities Neurological: Cranial nerves II-XII grossly intact, DTR 2+/4. No acute focal neurological deficit. Psych/Mental Status: Flat affect. Assessment & Plan Assessment/Plan (1) Adult failure to thrive: (2) Fall: (3) Unable to ambulate: (4) Contusion of hip: PLAN: Plan 89-year-old gentleman was mainly admitted for debility and weakness related to mechanical fall and disequilibrium. #Debility and weakness due to mechanical falls * Patient admitted with a complaint of mechanical falls. He fell on the day of admission and also fell the day before. His legs just gave way. The EMS had to be called both times to get him up. * states the last time he fell was about 2 years ago. He is on Coumadin for A-fib. * Imaging done showed no evidence of any fractures. CT of the brain showed no evidence of intracranial bleed. * PT OT on board. Fall precautions. 09/05: For now they agree to continue Coumadin. Risk and benefit of anticoagulants including [facility]madin [facility] # Fever * Patient developed a fever. Fever resolved and has not recurred. * Urinalysis showed no evidence of UTI. * Blood cultures ordered and patient started on IV vancomycin and Zosyn. * WBC today is down to 11.3. Respiratory panel was negative. Blood cultures negative after 48 hours. Antibiotics were discontinued #History of A-fib: * On Coumadin. INR is 1.9 today. Not on any rate or rhythm limiting medication. * I spoke to the patient's extensively about the risk of brain bleed with his history of falls as well as the risk of stroke if he is taking of the Coumadin and patient and his agreed to continue warfarin * The daughter is the healthcare power of energy attorney. #History of dementia: On rivastigmine #Dyslipidemia: On statin #Benign essential hypertension: On lisinopril. DVT prophylaxis: * Resume Coumadin today. INR 1.8. Daughter still thinking about that she wants him to continue otherwise. Code status: DNRCCA no intubation * Disposition: Awaiting placement. PT OT on board. Charges/Coding Visit Charges Inpatient E&M: 02665 Subs Hosp L2 09/05/24 1615 <Electronically signed by Navid Dominguez MD> Cosigner Signature (if applicable): CC: ~ Signed [facility] Work Phone: [phone] Progress note [facility] Medical Records Department [address] [place] [address] Progress Note - Hospitalist 09/05/24 1608 MR#: [id number] Acct: [id number] Name: ROBY FLORES Rep #:[id number] : 1935 89 From: Navid Trejo PCP: Dr. Stas Mora MD Status:AD M IN Location: [place] [address]-1 Reason for Visit Reason for Visit: Diagnoses Difficulty in walking, not elsewhere classified (09/02/24) Adult failure to thrive (09/02/24) Abrasion of unspecified elbow, initial encounter (09/02/24) Contusion of unspecified hip, initial encounter (09/02/24) Unspecified fall, initial encounter (09/02/24) Objective Data Objective Data Vital Signs: Vital Signs Temp Pulse Resp BP Pulse Ox O2 Del Method O2 Flow Rate 98.2 F 65 18 148/67 H 99 Room Air 2 09/05/24 14:00 09/05/24 14:00 09/05/24 14:00 09/05/24 14:00 09/05/24 14:00 09/05/24 14:00 09/04/24 12:05 Oxygen Flow Rate (L/min) 2 Oxygen Delivery Method Room Air Weight: 159 lb 9.835 oz Body Mass Index (BMI) 21.6 Intake & Output: Intake and Output for Last 24 Hours 09/03/24 09/04/24 09/05/24 23:59 23:59 23:59 Intake Total 1840 / 1940 884.38 / 884.38 250 / 250 Output Total 200 / 300 350 / 350 Balance 1640 / 1640 534.38 / 534.38 250 / 250 Lab / Micro Data 09/05/24 06:55 09/05/24 06:55 Labs: Laboratory Results - last 24 hr 09/05/24 03:20: Urine Color Straw, Urine Clarity Clear, Urine pH 7.0, Ur Specific [place] 1.005, Urine Protein 15 H, Urine Glucose (UA) Normal, Urine Ketones Negative, Urine Occult Blood 25 H, Urine Nitrite Negative, Urine Bilirubin Negative, Urine Urobilinogen Normal, Ur Leukocyte Esterase Negative, Urine RBC 0-5 SEEN, Urine WBC 0-5 SEEN, Ur Squamous Epith Cells 0 SEEN, Urine Bacteria RARE, Urine Mucus 0 SEEN 09/05/24 06:55: WBC 9.8, RBC 4.63, Hgb 11.3 L, Hct 35.3 L, MCV 76.2 L, MCH 24.4 L, MCHC 32.0, RDW Std Deviation 47.9 H, RDW Coeff of Boom 17.6 H, Plt Count 329, MPV 9.3, Immature Gran % (Auto) 0.400, Neut % (Auto) 77.2 H, Lymph % (Auto) 9.8 L, [place] % (Auto) 7.9, Eos % (Auto) 4.0, Baso % (Auto) 0.7, Absolute Neuts (auto)7.6, Absolute Lymphs (auto) 0.96, Nucleated RBC % 0, Sodium 139, Potassium 3.3,Chloride 105, Carbon Dioxide 21.9, Anion Gap 12, BUN 8, Creatinine 0.62 L, EstimCreat Clear Calc 64.10, Est GFR (MDRD) Non-Af 91, BUN/Creatinine Ratio 13.4, Glucose 119 H, Calcium 8.6 Micro: Microbiology 09/01/24 20:45 Blood Culture (Wb) - Right Hand Blood Culture - Preliminary No growth in 48 hours. 09/01/24 20:45 Blood Culture (Wb) - Left Hand Blood Culture - Preliminary No growth in 48 hours. 09/01/24 20:24 Mucosa - Nasopharyngeal Respiratory Panel (PCR) - Final 09/01/24 20:56 Nasal Secretion SARS-CoV-2 Antigen (Rapid) - Final Physical Exam Narrative Seen and examined. Patient was admitted with mechanical fall. Waiting for pre-CERT. Patient and her agreed for continuation of blood thinner/Coumadin. Risk and benefit explained Physical exam General: Alert, Oriented x3, Cooperative HEENT: Atraumatic, PERRLA, EOMI, Normocephalic. Oral: No Gingival or Mucosal Lesions/ Ulcerations Neck: Supple, No JVD, Negative Carotid Bruits Chest wall/Lungs: Air entry diminished in bilateral lung bases. No crepitation/rhonchi Cardiovascular: Irregular rhythm, A-fib normal S1,S2, No M/G/R Abdomen: Bowel Sounds Present, Soft, Non Tender, Non-Distended : No dysuria. No renal angle tenderness. No suprapubic tenderness. Extremities: No edema, Capillary Refill Less than 3 Seconds Skin: No rashes, No breakdown Musculoskeletal: No Tenderness to Palpation of Joints or Extremities Neurological: Cranial nerves II-XII grossly intact, DTR 2+/4. No acute focal neurological deficit. Psych/Mental Status: Flat affect. Assessment & Plan Assessment/Plan (1) Adult failure to thrive: (2) Fall: (3) Unable to ambulate: (4) Contusion of hip: PLAN: Plan 89-year-old gentleman was mainly admitted for debility and weakness related to mechanical fall and disequilibrium. #Debility and weakness due to mechanical falls * Patient admitted with a complaint of mechanical falls. He fell on the day of admission and also fell the day before. His legs just gave way. The EMS had to be called both times to get him up. * states the last time he fell was about 2 years ago. He is on Coumadin for A-fib. * Imaging done showed no evidence of any fractures. CT of the brain showed no evidence of intracranial bleed. * PT OT on board. Fall precautions. 09/05: For now they agree to continue Coumadin. Risk and benefit of anticoagulants including Coumadin explained [facility] the [facility] # Fever * Patient developed a fever. Fever resolved and has not recurred. * Urinalysis showed no evidence of UTI. * Blood cultures ordered and patient started on IV vancomycin and Zosyn. * WBC today is down to 11.3. Respiratory panel was negative. Blood cultures negative after 48 hours. Antibiotics were discontinued #History of A-fib: * On Coumadin. INR is 1.9 today. Not on any rate or rhythm limiting medication. * I spoke to the patient's extensively about the risk of brain bleed with his history of fallsas well as the risk of stroke if he is taking of the Coumadin and patient and his agreed to continue warfarin * The daughter is the healthcare power of energy attorney. #History of dementia: On rivastigmine #Dyslipidemia: On statin #Benign essential hypertension: On lisinopril. DVT prophylaxis: * Resume Coumadin today. INR 1.8. Daughter still thinking about that she wants him to continue otherwise. Code status: DNRCCA no intubation * Disposition: Awaiting placement. PT OT on board. Charges/Coding Visit Charges Inpatient E&M: 18579 Subs Hosp L2 09/05/24 1615 Cosigner Signature (if applicable): CC: ~ Signed [facility]06-15-2025 Progress note [facility] Note Date/Time September 04, 2024 3:37 pm [facility] Medical Records Department [address] [place] [address] Progress Note 09/04/24 1412 MR#: [id number] Acct: [id number] Name: ROBY FLORES Rep #:[id number] : 1935 89 From: Kathy Wells MD PCP: Dr. Stas Mora MD Status:AD M IN Location: [place] [address]-1 Subjective Subjective Patient seen and examined. He was alert and communicative and had no complaintstoday. He had an uneventful night. Review of systems otherwise negative. Objective Data Objective Data Vital Signs: Vital Signs Temp Pulse Resp BP Pulse Ox O2 Del Method O2 Flow Rate 97.8 F 94 15 178/80 H 98 Nasal Cannula 2 09/04/24 05:00 09/04/24 05:00 09/04/24 05:00 09/04/24 05:00 09/04/24 05:00 09/04/24 10:22 09/04/24 12:05 Oxygen Flow Rate (L/min) 2 Oxygen Delivery Method Nasal Cannula Weight: 159 lb 9.835 oz Body Mass Index (BMI) 21.6 Intake & Output: Intake and Output for Last 24 Hours 09/02/24 09/03/24 09/04/24 23:59 23:59 23:59 Intake Total 2277.92 / 2477.92 1840 / 1940 475 / 475 Output Total 950 / 950 200 / 300 150 / 150 Balance 1327.92 / 1527.92 1640 / 1640 325 / 325 Lab / Micro Data 09/04/24 05:14 09/04/24 05:14 Labs: Laboratory Results - last 24 hr 09/04/24 05:14: WBC 11.4 H, RBC 4.35 L, Hgb 10.7 L, Hct 33.3 L, MCV 76.6 L, MCH 24.6 L, MCHC 32.1, RDW Std Deviation 48.3 H, RDW Coeff of Boom 17.5 H, Plt Count 305, MPV 10.6, Immature Gran % (Auto) 0.400, Neut % (Auto) 78.0 H, Lymph % (Auto) 7.8 L, [place] % (Auto) 7.7, Eos % (Auto) 5.3 H, Baso % (Auto) 0.8, AbsoluteNeuts (auto) 8.9 H, Absolute Lymphs (auto) 0.89, Nucleated RBC % 0, Sodium 139, Potassium 3.5, Chloride 107, Carbon Dioxide 20.9 L, Anion Gap 11, BUN 12, Creatinine 0.72, Estim Creat Clear Calc 64.10, Est GFR (MDRD) Non-Af 87, BUN/Creatinine Ratio 17.3, Glucose 120 H, Calcium 8.2 09/04/24 07:45: PT 21.8 H, INR 1.9 Micro: Microbiology 09/01/24 20:45 Blood Culture (Wb) - Right Hand Blood Culture - Preliminary No growth in 48 hours. 09/01/24 20:45 Blood Culture (Wb) - Left Hand Blood Culture - Preliminary No growth in 48 hours. 09/01/24 20:24 Mucosa - Nasopharyngeal Respiratory Panel (PCR) - Final 09/01/24 20:56 Nasal Secretion SARS-CoV-2 Antigen (Rapid) - Final Physical Exam Const alert Constitutional Narrative: frail, weak, more communicative and less confused today General Appearance: cooperative Orientation / Consciousness: confused and disoriented HEENT normocephalic, head/scalp atraumatic and moist oral mucous membranes Eyes EOMs intact bilaterally and conjunctivae normal Neck supple and no JVD Resp Resp Narrative: Mildly diminished breath sounds bibasilarly. No wheezes or crackles. On 2 L ofoxygen by nasal cannula. Cardio regular rate, regular rhythm, S1 normal heart sound, S2 normal heart sound and no murmurs GI normal to inspection, nondistended, normoactive bowel sounds, soft to palpation,non-tender and non-distended Extremity normal to inspection, full ROM, normal capillary refill and no clubbing, cyanosis or edema Extremity Narrative: LUE bandaged at the elbow due to elbow contusion. General Extremity: no tenderness to palpation of joints or extremities Skin Skin Narrative: as under extremities Neuro no focal motor deficits Neuro Narrative: alert, moves all extremities, weak and frail. Motor Exam: general weakness Psych cooperative Psych Narrative: flat affect Mood & Affect: flat affect Assessment & Plan Assessment/Plan (1) Adult failure to thrive: (2) Fall: (3) Unable to ambulate: (4) Contusion of hip: PLAN: Plan #Debility and weakness due to mechanical falls * Patient admitted with a complaint of mechanical falls. He fell on the day of admission and also fell the day before. His legs just gave way. The EMS had to be called both times to get him up. * states the last time he fell was about 2 years ago. He is on Coumadin for A-fib. * Imaging done showed no evidence of any fractures. CT of the brain showed no evidence of intracranial bleed. * PT OT on board. Fall precautions. * # Fever * Patient developed a fever. Fever resolved and has not recurred. * Urinalysis showed no evidence of UTI. * Blood cultures ordered and patient started on IV vancomycin and Zosyn. * WBC today is down to 11.3. Respiratory panel was negative. Blood cultures negative after 48 hours. Will therefore DC antibiotics. * #History of A-fib: * On Coumadin. INR is 1.9 today. Not on any rate or rhythm limiting medication. * I spoke to the patient's daughter and extensively about the risk of brain bleed with his history of falls as well as the risk of stroke if he is taking of the Coumadin. * I explained to them that would have to be a shared decision making process and the remaining power to make the decision they felt was in the best interest of the patient. * The daughter is the healthcare power of energy attorney. * In light of patient's confusion in the setting of dementia, she would ultimately have to make decisions feels in the best interest of her father. * She was counseled that she would need to think about it and let the medical team know what she had decided. * coumadin resumed whilst patient is in the hospital. Awaiting daughter's final decision about stopping coumadin or otherwise due to history of mechanical falls * #History of dementia: On rivastigmine #Dyslipidemia: On statin #Benign essential hypertension: On lisinopril. DVT prophylaxis: * Resume Coumadin today. INR 1.8. Daughter still thinking about that she wants him to continue otherwise. * Code status: DNRCCA no intubation * Disposition: Awaiting placement. PT OT on board. Charges/Coding Visit Charges Inpatient E&M: 85187 Subs Hosp L2 09/04/24 1536 <Electronically signed by Kathy Wells MD> Kathy Wells MD Cosigner Signature (if applicable): CC: ~ Signed [facility] Work Phone: [phone] Progress note [facility] Medical Records Department [address] [place] [address] Progress Note 09/04/24 1412 MR#: [id number] Acct: [id number] Name: ROBY FLORES Rep #:[id number] : 1935 89 From: Kathy Wells MD PCP: Dr. Stas Mora MD Status:AD M IN Location: [place] [address] Subjective Subjective Patient seen and examined. He was alert and communicative and had no complaintstoday. He had an uneventful night. Review of systems otherwise negative. Objective Data Objective Data Vital Signs: Vital Signs Temp Pulse Resp BP Pulse Ox O2 Del Method O2 Flow Rate 97.8 F 94 15 178/80 H 98 Nasal Cannula 2 09/04/24 05:00 09/04/24 05:00 09/04/24 05:00 09/04/24 05:00 09/04/24 05:00 09/04/24 10:22 09/04/24 12:05 Oxygen Flow Rate (L/min) 2 Oxygen Delivery Method Nasal Cannula Weight: 159 lb 9.835 oz Body Mass Index (BMI) 21.6 Intake & Output: Intake and Output for Last 24 Hours 09/02/24 09/03/2409/04/25 23:59 23:59 23:59 Intake Total 2277.92 / 2477.92 1840 / 1940 475 / 475 Output Total 950 / 950 200 / 300 150 / 150 Balance 1327.92 / 1527.92 1640 / 1640 325 / 325 Lab / Micro Data 09/04/24 05:14 09/04/24 05:14 Labs: Laboratory Results - last 24 hr 09/04/24 05:14: WBC 11.4 H, RBC 4.35 L, Hgb 10.7 L, Hct 33.3 L, MCV 76.6 L, MCH 24.6 L, MCHC 32.1, RDW Std Deviation 48.3 H, RDW Coeff of Boom 17.5 H, Plt Count 305, MPV 10.6, Immature Gran % (Auto) 0.400, Neut % (Auto) 78.0 H, Lymph % (Auto) 7.8 L, [place] % (Auto) 7.7, Eos % (Auto) 5.3 H, Baso % (Auto) 0.8, AbsoluteNeuts (auto) 8.9 H, Absolute Lymphs (auto) 0.89, Nucleated RBC % 0, Sodium 139, Potassium 3.5, Chloride 107, Carbon Dioxide 20.9 L, Anion Gap 11, BUN 12, Creatinine 0.72, Estim Creat Clear Calc 64.10, Est GFR (MDRD) Non-Af 87, BUN/Creatinine Ratio 17.3, Glucose 120 H, Calcium 8.2 09/04/24 07:45: PT 21.8 H, INR 1.9 Micro: Microbiology 09/01/24 20:45 Blood Culture (Wb) - Right Hand Blood Culture - Preliminary No growth in 48 hours. 09/01/24 20:45 Blood Culture (Wb) - Left Hand Blood Culture - Preliminary No growth in 48 hours. 09/01/24 20:24 Mucosa - Nasopharyngeal Respiratory Panel (PCR) - Final 09/01/24 20:56 Nasal Secretion SARS-CoV-2 Antigen (Rapid) - Final Physical Exam Const alert Constitutional Narrative: frail, weak, more communicative and less confused today General Appearance: cooperative Orientation / Consciousness: confused and disoriented HEENT normocephalic, head/scalp atraumatic and moist oral mucous membranes Eyes EOMs intact bilaterally and conjunctivae normal Neck supple and no JVD Resp Resp Narrative: Mildly diminished breath sounds bibasilarly. No wheezes or crackles. On 2 L ofoxygen by nasal cannula. Cardio regular rate, regular rhythm, S1 normal heart sound, S2 normal heart sound and no murmurs GI normal to inspection, nondistended, normoactive bowel sounds, soft to palpation,non-tender and non-distended Extremity normal to inspection, full ROM, normal capillary refill and no clubbing, cyanosis or edema Extremity Narrative: LUE bandaged at the elbow due to elbow contusion. General Extremity: no tenderness to palpation of joints or extremities Skin Skin Narrative: as under extremities Neuro no focal motor deficits Neuro Narrative: alert, moves all extremities, weak and frail. Motor Exam: general weakness Psych cooperative Psych Narrative: flat affect Mood & Affect: flat affect Assessment & Plan Assessment/Plan (1) Adult failure to thrive: (2) Fall: (3) Unable to ambulate: (4) Contusion of hip: PLAN: Plan #Debility and weakness due to mechanical falls * Patient admitted with a complaint of mechanical falls. He fell on the day of admission and also fell the day before. His legs just gave way. The EMS had to be called both times to get him up. * states the last time he fell was about 2 years ago. He is on Coumadin for A-fib. * Imaging done showed no evidence of any fractures. CT of the brain showed no evidence of intracranial bleed. * PT OT on board. Fall precautions. * # Fever * Patient developed a fever. Fever resolved and has not recurred. * Urinalysis showed no evidence of UTI. * Blood cultures ordered and patient started on IV vancomycin and Zosyn. * WBC today is down to 11.3. Respiratory panel was negative. Blood cultures negative after 48 hours. Will therefore DC antibiotics. * #History of A-fib: * On Coumadin. INR is 1.9 today. Not on any rate or rhythm limiting medication. * I spoke to the patient's daughter and extensively about the risk of brain bleed with his history of falls as well as the risk of stroke if he is taking of the Coumadin. * I explained to them that would have to be a shared decision making process and the remaining power to make the decision they felt was in the best interest of the patient. * The daughter is the healthcare power of energy attorney. * In light of patient's confusion in the setting of dementia, she would ultimately have to make decisions feels in the best interest of her father. * She was counseled that she would need to think about it and let the medical team know what she had decided. * coumadin resumed whilst patient is in the hospital. Awaiting daughter's final decision about stopping coumadin or otherwise due to history of mechanical falls * #History of dementia: On rivastigmine #Dyslipidemia: On statin #Benign essential hypertension: On lisinopril. DVT prophylaxis: * Resume Coumadin today. INR 1.8. Daughter still thinking about that she wants him to continue otherwise. * Code status: DNRCCA no intubation * Disposition: Awaiting placement. PT OT on board. Charges/Coding Visit Charges Inpatient E&M: 96237 Subs Hosp L2 09/04/24 1537 Kathy Wells MD Cosigner Signature (if applicable): CC: ~ Signed [facility]06-14-2025 Progress note Author Kathy [facility] Note Date/Time September 03, 2024 6:29 pm [facility] Medical Records Department [address] [place] [address] Progress Note 09/03/24 1135 MR#: [id number] Acct: [id number] Name: ROBY FLORES Rep #:[id number] : 1935 89 From: Kathy Wells MD PCP: Dr. Stas Mora MD Status:AD M IN Location: [place] [address] Subjective Subjective Patient seen and examined. He was alert and communicative. He had no active complaints. He has remained hemodynamically stable. Review of systems otherwise negative. Objective Data Objective Data Vital Signs: Vital Signs Temp Pulse Resp BP Pulse Ox O2 Del Method O2 Flow Rate 98.2 F 96 22 H 154/104 H 94 Room Air 2 09/03/24 08:13 09/03/24 08:13 09/03/24 08:09/03/24 08:09/03/24 08:09/03/24 08:09/02/24 15:02 Oxygen Flow Rate (L/min) 2 Oxygen Delivery Method Room Air Weight: 159 lb 9.835 oz Body Mass Index (BMI) 21.6 Intake & Output: Intake and Output for Last 24 Hours 09/01/24 09/02/24 09/03/24 23:59 23:59 23:59 Intake Total 1537.08 / 1537.08 2277.92 / 2477.92 550 / 550 Output Total 250 / 450 950 / 950 100 / 100 Balance 1287.08 / 1087.08 1327.92 / 1527.92 450 / 450 Lab / Micro Data 09/03/24 08:11 09/03/24 08:11 Labs: Laboratory Results - last 24 hr 09/03/24 08:11: WBC 12.3 H, RBC 4.58 L, Hgb 11.3 L, Hct 35.6 L, MCV 77.7 L D, MCH 24.7 L, MCHC 31.7 L D, RDW Std Deviation 48.2 H, RDW Coeff of Boom 17.5 H, PltCount 252, MPV 9.9, Immature Gran % (Auto) 0.400, Neut % (Auto) 83.4 H, Lymph % (Auto) 6.7 L, [place] % (Auto) 6.0, Eos % (Auto) 2.8, Baso % (Auto) 0.7, Absolute Neuts (auto) 10.2 H, Absolute Lymphs (auto) 0.82 L, Nucleated RBC % 0, PT 20.9 H, INR 1.8, Sodium 137, Potassium 3.5, Chloride 104, Carbon Dioxide 19.1 L, AnionGap 13, BUN 10, Creatinine 0.74, Estim Creat Clear Calc 64.10, Est GFR (MDRD) Non-Af 87, BUN/Creatinine Ratio 13.3, Glucose 111 H, Calcium 8.5, Vancomycin Trough 8.2 Micro: Microbiology 09/01/24 20:24 Mucosa - Nasopharyngeal Respiratory Panel (PCR) - Final 09/01/24 20:56 Nasal Secretion SARS-CoV-2 Antigen (Rapid) - Final Physical Exam Const alert Constitutional Narrative: frail, frail, weak, more communicative and less confused today General Appearance: cooperative HEENT normocephalic, head/scalp atraumatic and moist oral mucous membranes Eyes EOMs intact bilaterally and conjunctivae normal Neck supple and no JVD Resp normal respiratory effort, normal air movement, no use of accessory muscles and clear to auscultation bilaterally Cardio regular rate, regular rhythm, S1 normal heart sound, S2 normal heart sound and no murmurs GI normal to inspection, nondistended, normoactive bowel sounds and soft to palpation Extremity normal to inspection, full ROM, normal capillary refill and no clubbing, cyanosis or edema Extremity Narrative: LUE bandaged at the elbow due to elbow contusion. General Extremity: no tenderness to palpation of joints or extremities Skin General Skin Exam: no breakdown Neuro no focal motor deficits Neuro Narrative: alert, moves all extremities, weak and frail. Motor Exam: general weakness Psych Psych Narrative: flat affect Assessment & Plan Assessment/Plan (1) Adult failure to thrive: (2) Fall: (3) Unable to ambulate: (4) Contusion of hip: PLAN: Plan #Debility and weakness due to mechanical falls * Patient admitted with a complaint of mechanical falls. He fell on the day of admission and also fell the day before. His legs just gave way. The EMS had to be called both times to get him up. * states the last time he fell was about 2 years ago. He is on Coumadin for A-fib. * Imaging done showed no evidence of any fractures. CT of the brain showed no evidence of intracranial bleed. * He was hydrated with IV fluids. * PT OT on board. Fall precautions. * # Fever * Patient developed a fever. Fever resolved and has not recurred. * Urinalysis showed no evidence of UTI. * Blood cultures ordered and patient started on IV vancomycin and Zosyn. * WBC today is 12.3. Respiratory panel was negative. Blood cultures pending. * #History of A-fib: * On Coumadin. INR is 1.8 today. Not on any rate or rhythm limiting medication. * I spoke to the patient's daughter and extensively about the risk of brain bleed with his history of falls as well as the risk of stroke if he is taking of the Coumadin. * I explained to them that would have to be a shared decision making process and the remaining power to make the decision they felt was in the best interest of the patient. * The daughter is the healthcare power of energy attorney. * In light of patient's confusion in the setting of dementia, she would ultimately have to make decisions feels in the best interest of her father. * She was counseled that she would need to think about it and let the medical team know what she had decided. * resume coumadin today. * #History of dementia: On rivastigmine #Dyslipidemia: On statin #Benign essential hypertension: On lisinopril. DVT prophylaxis: * Resume Coumadin today. INR 1.8. Daughter still thinking about that she wants him to continue otherwise. * Code status: DNRCCA no intubation * Disposition: Will benefit from placement. PT OT on board. Charges/Coding Visit Charges Inpatient E&M: 41278 Subs Hosp L2 09/03/24 1829 <Electronically signed by Kathy Wells MD> Kathy Wells MD Cosigner Signature (if applicable): CC: ~ Signed [facility] Work Phone: [phone] Progress note [facility] Medical Records Department [address] [place] [address] Progress Note 09/03/24 1135 MR#: [id number] Acct: [id number] Name: ROBY FLORES Rep #:[id number] : 1935 89 From: Kathy Wells MD PCP: Dr. Stas Mora MD Status:AD M IN Location: [place] [address]1 Subjective Subjective Patient seen and examined. He was alert and communicative. He had no active complaints. He has remained hemodynamically stable. Review of systems otherwise negative. Objective Data Objective Data Vital Signs: Vital Signs Temp Pulse Resp BP Pulse Ox O2 Del Method O2 Flow Rate 98.2 F 96 22 H 154/104 H 94 Room Air 2 09/03/24 08:13 09/03/24 08:13 09/03/24 08:13 09/03/24 08:09/03/24 08:25 09/03/24 08:09/02/24 15:02 Oxygen Flow Rate (L/min) 2 Oxygen Delivery Method Room Air Weight: 159 lb 9.835 oz Body Mass Index (BMI) 21.6 Intake & Output: Intake and Output for Last 24 Hours 09/01/24 09/02/24 09/03/24 23:59 23:59 23:59 Intake Total 1537.08 / 1537.08 2277.92 / 2477.92 550 / 550 Output Total 250 / 450 950 / 950 100 / 100 Balance 1287.08 / 1087.08 1327.92 / 1527.92 450 / 450 Lab / Micro Data 09/03/24 08:11 09/03/24 08:11 Labs: Laboratory Results - last 24 hr 09/03/24 08:11: WBC 12.3 H, RBC 4.58 L, Hgb 11.3 L, Hct 35.6 L, MCV 77.7 L D, MCH 24.7 L, MCHC 31.7L D, RDW Std Deviation 48.2 H, RDW Coeff of Boom 17.5 H, PltCount 252, MPV 9.9, Immature Gran % (Auto) 0.400, Neut % (Auto) 83.4 H, Lymph % (Auto) 6.7 L, [place] % (Auto) 6.0, Eos % (Auto) 2.8, Baso % (Auto) 0.7, Absolute Neuts (auto) 10.2 H, Absolute Lymphs (auto) 0.82 L, Nucleated RBC % 0, PT 20.9 H,INR 1.8, Sodium 137, Potassium 3.5, Chloride 104, Carbon Dioxide 19.1 L, AnionGap 13, BUN 10, Creatinine 0.74, Estim Creat Clear Calc 64.10, Est GFR (MDRD) Non-Af 87, BUN/Creatinine Ratio 13.3, Glucose 111 H, Calcium 8.5, Vancomycin Trough 8.2 Micro: Microbiology 09/01/24 20:24 Mucosa - Nasopharyngeal Respiratory Panel (PCR) - Final 09/01/24 20:56 Nasal Secretion SARS-CoV-2 Antigen (Rapid) - Final Physical Exam Const alert Constitutional Narrative: frail, frail, weak, more communicative and less confused today General Appearance: cooperative HEENT normocephalic, head/scalp atraumatic and moist oral mucous membranes Eyes EOMs intact bilaterally and conjunctivae normal Neck supple and no JVD Resp normal respiratory effort, normal air movement, no use of accessory muscles and clear to auscultation bilaterally Cardio regular rate, regular rhythm, S1 normal heart sound, S2 normal heart sound and no murmurs GI normal to inspection, nondistended, normoactive bowel sounds and soft to palpation Extremity normal to inspection, full ROM, normal capillary refill and no clubbing, cyanosis or edema Extremity Narrative: LUE bandaged at the elbow due to elbow contusion. General Extremity: no tenderness to palpation of joints or extremities Skin General Skin Exam: no breakdown Neuro no focal motor deficits Neuro Narrative: alert, moves all extremities, weak and frail. Motor Exam: general weakness Psych Psych Narrative: flat affect Assessment & Plan Assessment/Plan (1) Adult failure to thrive: (2) Fall: (3) Unable to ambulate: (4) Contusion of hip: PLAN: Plan #Debility and weakness due to mechanical falls * Patient admitted with a complaint of mechanical falls. He fell on the day of admission and also fell the day before. His legs just gave way. The EMS had to be called both times to get him up. * states the last time he fell was about 2 years ago. He is on Coumadin for A-fib. * Imaging done showed no evidence of any fractures. CT of the brain showed no evidence of intracranial bleed. * He was hydrated with IV fluids. * PT OT on board. Fall precautions. * # Fever * Patient developed a fever. Fever resolved and has not recurred. * Urinalysis showed no evidence of UTI. * Blood cultures ordered and patient started on IV vancomycin and Zosyn. * WBC today is 12.3. Respiratory panel was negative. Blood cultures pending. * #History of A-fib: * On Coumadin. INR is 1.8 today. Not on any rate or rhythm limiting medication. * I spoke to the patient's daughter and extensively about the risk of brain bleed with his history of falls as well as the risk of stroke if he is taking of the Coumadin. * I explained to them that would have to be a shared decision making process and the remaining power to make the decision they felt was in the best interest of the patient. * The daughter is the healthcare power of energy attorney. * In light of patient's confusion in the setting of dementia, she would ultimately have to make decisions feels in the best interest of her father. * She was counseled that she would need to think about it and let the medical team know what she had decided. * resume coumadin today. * #History of dementia: On rivastigmine #Dyslipidemia: On statin #Benign essential hypertension: On lisinopril. DVT prophylaxis: * Resume Coumadin today. INR 1.8. Daughter still thinking about that she wants him to continue otherwise. * Code status: DNRCCA no intubation * Disposition: Will benefit from placement. PT OT on board. Charges/Coding Visit Charges Inpatient E&M: 62435 Subs Hosp L2 09/03/24 0312 Kathy Wells MD Cosigner Signature (if applicable): CC: ~ Signed [facility]06-14-2025 Consult note Author Spike De La Cruz [facility] Note Date/Time September 03, 2024 3:49 pm [facility] Medical Records Department [address] [place] [address] Pharmacokinetic/Renal -Consult 09/03/24 1548 MR#: [id number] Acct: [id number] Name: ROBY FLORES Rep #:[id number] : 1935 89 From: Spike [facility] PCP: Dr. Stas Mora MD Status:AD M IN Location: [place] [address] Consult Antibiotic Management Pharmacy has been consulted to manage selected antibiotic: Vancomycin Type of Intervention Type of Consult: Follow-up Suspected Infection Suspected Infection: Other Labs Labs: Sodium 137 mmol/L (133-145) 09/03/24 08:11 Potassium 3.5 mmol/L (3.3-5.1) 09/03/24 08:11 Chloride 104 mmol/L (98-108) 09/03/24 08:11 Carbon Dioxide 19.1 mmol/L (21.0-32.0) L 09/03/24 08:11 Anion Gap 13 (5-15) 09/03/24 08:11 BUN 10 mg/dL (4-19) 09/03/24 08:11 Creatinine 0.74 mg/dL (0.70-1.20) 09/03/24 08:11 Est GFR (MDRD) Non-Af 87 (>60) 09/03/24 08:11 BUN/Creatinine Ratio 13.3 RATIO (10-20) 09/03/24 08:11 Glucose 111 mg/dL (70-99) H 09/03/24 08:11 Vancomycin Trough 8.2 ug/mL (5.0-15.0) 09/03/24 08:11 Microbiology Microbiology: Microbiology 09/01/24 20:24 Mucosa - Nasopharyngeal Respiratory Panel (PCR) - Final 09/01/24 20:56 Nasal Secretion SARS-CoV-2 Antigen (Rapid) - Final Goal Trough Goal Trough: 15-20 mcg/mL Pharmacy Plan for Drug Dosing Pharmacy Plan for Drug Dosing: VANCOMYCIN LEVEL RECEIVED Current Vancomycin Dose: 750mg q12h Number of Doses Received: x2 doses of 750mg Vancomycin Level: 8.2 Hours Since Last Dose: 11.5 hours since last 750mg dose Renal Function: SrCr 0.74 Renal Function Trend: SrCr stable Lab/Micro: Vancomycin Plan/Comments: trough level of 8.2 is below the ordered goal trough range of 15-20. recommend changing dose to 1250mg q12h and checking a trough prior to the 4th dose Pending Level: 09/04/24 at 2130 Pharmacy Service will continue to monitor and adjust dosing as required. Follow-Up Labs Follow-Up Labs: Trough: Vancomycin (09/04/24 at 2130) 09/03/24 1549 <Electronically signed by Spike Angelo [facility]> Date _ Spike De La Cruz [facility] Cosigner Signature (if applicable): Date CC: ~ Signed [facility] Work Phone: [phone]) [phone] Consult note [facility] Medical Records Department [address] [place] [address] [place] [address] Pharmacokinetic/Renal -Consult 09/03/24 1548 MR#: [id number] Acct: [id number] Name: ROBY FLORES Rep #:[id number] : 1935 89 From: Spike [facility] PCP: Dr. Stas Mora MD Status:AD M IN Location: [place] [address] Consult Antibiotic Management Pharmacy has been consulted to manage selected antibiotic: Vancomycin Type of Intervention Type of Consult: Follow-up Suspected Infection Suspected Infection: Other Labs Labs: Sodium 137 mmol/L (133-145) 09/03/24 08:11 Potassium 3.5 mmol/L (3.3-5.1) 09/03/24 08:11 Chloride 104 mmol/L (98-108) 09/03/24 08:11 Carbon Dioxide 19.1 mmol/L (21.0-32.0) L 09/03/24 08:11 Anion Gap 13 (5-15) 09/03/24 08:11 BUN 10 mg/dL (4-19) 09/03/24 08:11 Creatinine 0.74 mg/dL (0.70-1.20) 09/03/24 08:11 Est GFR (MDRD) Non-Af 87 (>60) 09/03/24 08:11 BUN/Creatinine Ratio 13.3 RATIO (10-20) 09/03/24 08:11 Glucose 111 mg/dL (70-99) H 09/03/24 08:11 Vancomycin Trough 8.2 ug/mL (5.0-15.0) 09/03/24 08:11 Microbiology Microbiology: Microbiology 09/01/24 20:24 Mucosa - Nasopharyngeal Respiratory Panel (PCR) - Final 09/01/24 20:56 Nasal Secretion SARS-CoV-2 Antigen (Rapid) - Final Goal Trough Goal Trough: 15-20 mcg/mL Pharmacy Plan for Drug Dosing Pharmacy Plan for Drug Dosing: VANCOMYCIN LEVEL RECEIVED Current Vancomycin Dose: 750mg q12h Number of Doses Received: x2 doses of 750mg Vancomycin Level: 8.2 Hours Since Last Dose: 11.5 hours since last 750mg dose Renal Function: SrCr 0.74 Renal Function Trend: SrCr stable Lab/Micro: Vancomycin Plan/Comments: trough level of 8.2 is below the ordered goal trough range of 15-20. recommend changing dose to 1250mg q12h and checking a trough prior to the 4th dose Pending Level: 09/04/24 at 2130 Pharmacy Service will continue to monitor and adjust dosing as required. Follow-Up Labs Follow-Up Labs: Trough: Vancomycin (09/04/24 at 2130) 09/03/24 1549 dominick [facility]> Date _ Spike De La Cruz [facility] Cosigner Signature (if applicable): Date CC: ~ Signed [facility]06-13-2025 Progress note Author Kathy Wells [facility] Note Date/Time September 02, 2024 6:45 pm [facility] Medical Records Department [address] [place] [address] Progress Note 09/02/24 1404 MR#: [id number] Acct: [id number] Name: ROBY FLORES Rep #:[id number] : 1935 89 From: Kathy Wells MD PCP: Dr. Stas Mora MD Status:AD M IN Location: [place] [address] Subjective Subjective Patient seen and examined. He had no complaints this morning. He was alert andsitting in his chair when I saw him with his nurse by his bedside. He did display a date of the day he was seen.. However he said Gab Was the current president and did not know the year. He is on 1 L of oxygen. He developed a fever overnight and so was started on broad-spectrum antibiotics. WBC is 13.8 today. Objective Data Objective Data Vital Signs: Vital Signs Temp Pulse Resp BP Pulse Ox O2 Del Method O2 Flow Rate 98.5 F 80 24 H 159/89 H 96 Nasal Cannula 1 09/02/24 08:00 09/02/24 08:00 09/02/24 08:00 09/02/24 08:00 09/02/24 09:30 09/02/24 09:30 09/02/24 09:30 Oxygen Flow Rate (L/min) 1 Oxygen Delivery Method Nasal Cannula Weight: 159 lb 9.835 oz Body Mass Index (BMI) 21.6 Intake & Output: Intake and Output for Last 24 Hours 08/31/24 09/01/24 09/02/24 23:59 23:59 23:59 Intake Total 1537.08 / 1537.08 1722.92 / 1722.92 Output Total 250 / 450 850 / 850 Balance 1287.08 / 1087.08 872.92 / 872.92 Lab / Micro Data 09/02/24 05:10 09/02/24 05:10 Labs: Laboratory Results - last 24 hr 09/01/24 08:01: ESR 2, C-React Prot Ext Range 26.80 H, Procalcitonin 0.07 09/02/24 05:10: WBC 13.8 H, RBC 4.85, Hgb 11.9 L, Hct 39.9 L, MCV 82.3 D, MCH 24.5 L, MCHC 29.8 L D, RDW Std Deviation 52.3 H, RDW Coeff of Boom 17.8 H, Plt Count 227, MPV 10.6, Immature Gran % (Auto) 0.700, Neut % (Auto) 87.9 H, Lymph %(Auto) 3.8 L, [place] % (Auto) 4.8, Eos % (Auto) 2.2, Baso % (Auto) 0.6, Absolute Neuts (auto) 12.1 H, Absolute Lymphs (auto) 0.52 L, Nucleated RBC % 0, Sodium 135, Potassium 4.3, Chloride 105, Carbon Dioxide 14.2 L, Anion Gap 15, BUN 14, Creatinine 0.75, Estim Creat Clear Calc 64.10, Est GFR (MDRD) Non-Af 86, BUN/Creatinine Ratio 18.9, Glucose 105 H, Calcium 8.5 09/02/24 08:25: PT 22.1 H, INR 1.9 Micro: Microbiology 09/01/24 20:24 Mucosa - Nasopharyngeal Respiratory Panel (PCR) - Final 09/01/24 20:56 Nasal Secretion SARS-CoV-2 Antigen (Rapid) - Final Physical Exam Const alert Constitutional Narrative: frail, weak, confused, alert to self and place, but not to time. General Appearance: cooperative HEENT normocephalic and head/scalp atraumatic Eyes conjunctivae normal Neck supple and no JVD Resp normal respiratory effort, no use of accessory muscles and clear to auscultationbilaterally Cardio regular rate, regular rhythm, S1 normal heart sound, S2 normal heart sound and no murmurs GI normal to inspection, nondistended, normoactive bowel sounds and soft to palpation Extremity normal to inspection, full ROM, normal capillary refill and no clubbing, cyanosis or edema General Extremity: no tenderness to palpation of joints or extremities Skin General Skin Exam: no breakdown Neuro CN's II-XII intact bilaterally and no focal motor deficits Neuro Narrative: alert, confused, moves all extremities, weak and frail. Motor Exam: general weakness Psych Psych Narrative: flat affect Assessment & Plan Assessment/Plan (1) Adult failure to thrive: (2) Fall: (3) Unable to ambulate: (4) Contusion of hip: PLAN: Plan #Debility and weakness due to mechanical falls * Patient admitted with a complaint of mechanical falls. He fell on the day of admission and also fell the day before. His legs just gave way. The EMS had to be called both times to get him off. * states the last time he fell was about 2 years ago. He is on Coumadin for A-fib. * Imaging done showed no evidence of any fractures. CT of the brain showed no evidence of intracranial bleed. * [facility]drate gently with IV fluids. * PT OT on board. Fall precautions. * # Fever * Patient developed a fever overnight. Urinalysis showed no evidence of UTI. Blood cultures ordered and patient started on IV vancomycin and Zosyn. * #History of A-fib: * On Coumadin. INR is 1.9. Not on any rate or rhythm limiting medication. * I spoke to the patient's daughter and extensively about the risk of brain bleed with his history of falls as well as the risk of stroke if he is taking of the Coumadin. * I explained to them that would have to be a shared decision making process and the remaining power to make the decision they felt was in the best interest of the patient. * The daughter is the healthcare power of energy attorney. * In light of patient's confusion in the setting of dementia, she would ultimately have to make decisions feels in the best interest of her father. * She was counseled that she would need to think about it and let the medical team know what she had decided. * Will resume Coumadin today was waiting for daughter to make a decision. * #History of dementia: On rivastigmine #Dyslipidemia: On statin #Benign essential hypertension: On lisinopril. DVT prophylaxis: * Resume Coumadin today. INR 1.9. Daughter still thinking about that she wants him to continue otherwise. * Code status: DNRCCA no intubation * Charges/Coding Visit Charges Inpatient E&M: 79890 Subs Hosp L2 09/02/24 1845 <Electronically signed by Kathy Wells MD> Kathy Wells MD Cosigner Signature (if applicable): CC: ~ Signed [facility] Work Phone: [phone]) 470-160006-13-2025 Progress note [facility] Medical Records Department [address] [place] [address] Progress Note 09/02/24 1404 MR#: [id number] Acct: [id number] Name: ROBY FLORES Rep #:[id number] : 1935 89 From: Kathy Wells MD PCP: Dr. Stas Mora MD Status:AD M IN Location: [place] [address]1 Subjective Subjective Patient seen and examined. He had no complaints this morning. He was alert andsitting in his chair when I saw him with his nurse by his bedside. He did display a date of the day he was seen.. However he said Gab Was the current president and did not know the year. He is on 1 L of oxygen. He developed a fever overnight and so was started on broad-spectrum antibiotics. WBC is 13.8 today. Objective Data Objective Data Vital Signs: Vital Signs Temp Pulse Resp BP Pulse Ox O2 Del Method O2 Flow Rate 98.5 F 80 24 H 159/89 H 96 Nasal Cannula 1 09/02/24 08:00 09/02/24 08:00 09/02/24 08:00 09/02/24 08:00 09/02/24 09:30 09/02/24 09:30 09/02/24 09:30 Oxygen Flow Rate (L/min) 1 Oxygen Delivery Method Nasal Cannula Weight: 159 lb 9.835 oz Body Mass Index (BMI) 21.6 Intake & Output: Intake and Output for Last 24 Hours 08/31/24 09/01/24 09/02/24 23:59 23:59 23:59 Intake Total 1537.08 / 1537.08 1722.92 / 1722.92 Output Total 250 / 450 850 / 850 Balance 1287.08 / 1087.08 872.92 / 872.92 Lab / Micro Data 09/02/24 05:10 09/02/24 05:10 Labs: Laboratory Results - last 24 hr 09/01/24 08:01: ESR 2, C-React Prot Ext Range 26.80 H, Procalcitonin 0.07 09/02/24 05:10: WBC 13.8 H, RBC 4.85, Hgb 11.9 L, Hct 39.9 L, MCV 82.3 D, MCH 24.5 L, MCHC 29.8 L D, RDW Std Deviation 52.3 H, RDW Coeff of Boom 17.8 H, Plt Count 227, MPV 10.6, Immature Gran % (Auto)0.700, Neut % (Auto) 87.9 H, Lymph %(Auto) 3.8 L, [place] % (Auto) 4.8, Eos % (Auto) 2.2, Baso % (Auto) 0.6, Absolute Neuts (auto) 12.1 H, Absolute Lymphs (auto) 0.52 L, Nucleated RBC % 0, Sodium 135, Potassium 4.3, Chloride 105, Carbon Dioxide 14.2 L, Anion Gap 15, BUN 14, Creatinine 0.75, Estim Creat Clear Calc 64.10, Est GFR (MDRD) Non-Af 86, BUN/Creatinine Ratio 18.9, Glucose 105 H, Calcium 8.5 09/02/24 08:25: PT 22.1 H, INR 1.9 Micro: Microbiology 09/01/24 20:24 Mucosa - Nasopharyngeal Respiratory Panel (PCR) - Final 09/01/24 20:56 Nasal Secretion SARS-CoV-2 Antigen (Rapid) - Final Physical Exam Const alert Constitutional Narrative: frail, weak, confused, alert to self and place, but not to time. General Appearance: cooperative HEENT normocephalic and head/scalp atraumatic Eyes conjunctivae normal Neck supple and no JVD Resp normal respiratory effort, no use of accessory muscles and clear to auscultationbilaterally Cardio regular rate, regular rhythm, S1 normal heart sound, S2 normal heart sound and no murmurs GI normal to inspection, nondistended, normoactive bowel sounds and soft to palpation Extremity normal to inspection, full ROM, normal capillary refill and no clubbing, cyanosis or edema General Extremity: no tenderness to palpation of joints or extremities Skin General Skin Exam: no breakdown Neuro CN's II-XII intact bilaterally and no focal motor deficits Neuro Narrative: alert, confused, moves all extremities, weak and frail. Motor Exam: general weakness Psych Psych Narrative: flat affect Assessment & Plan Assessment/Plan (1) Adult failure to thrive: (2) Fall: (3) Unable to ambulate: (4) Contusion of hip: PLAN: Plan #Debility and weakness due to mechanical falls * Patient admitted with a complaint of mechanical falls. He fell on the day of admission and also fell the day before. His legs just gave way. The EMS had to be called both times to get him off. * states the last time he fell was about 2 years ago. He is on Coumadin for A-fib. * Imaging done showed no evidence of any fractures. CT of the brain showed no evidence of intracranial bleed. * [facility] Hydrate gently with IV fluids. * PT OT on board. Fall precautions. * # Fever * Patient developed a fever overnight. Urinalysis showed no evidence of UTI. Blood cultures orderedand patient started on IV vancomycin and Zosyn. * #History of A-fib: * On Coumadin. INR is 1.9. Not on any rate or rhythm limiting medication. * I spoke to the patient's daughter and extensively about the risk of brain bleed with his history of falls as well as the risk of stroke if he is taking of the Coumadin. * I explained to them that would have to be a shared decision making process and the remaining power to make the decision they felt was in the best interest of the patient. * The daughter is the healthcare power of energy attorney. * In light of patient's confusion in the setting of dementia, she would ultimately have to make decisions feels in the best interest of her father. * She was counseled that she would need to think about it and let the medical team know what she had decided. * Will resume Coumadin today was waiting for daughter to make a decision. * #History of dementia: On rivastigmine #Dyslipidemia: On statin #Benign essential hypertension: On lisinopril. DVT prophylaxis: * Resume Coumadin today. INR 1.9. Daughter still thinking about that she wants him to continue otherwise. * Code status: DNRCCA no intubation * Charges/Coding Visit Charges Inpatient E&M: 66653 Subs Hosp L2 09/02/24 0323 Kathy Wells MD Cosigner Signature (if applicable): CC: ~ Signed [facility]06-13-2025 Evaluation note* Diagnosis Onset Date Resolution Status Admit Date Adult failure to thrive acute [facility] 2024 12:49pm Chronic anticoagulation acute [facility] 2024 12:49pm Contusion of hip acute August 12:49pm Fall acute September 02 12:49pm History of atrial fibrillation acute September 02, 2024 12:49pm History of dementia acute September 02, 2024 12:49pm History of TIAs acute August 12:49pm Unable to ambulate acute August 212024 12:49pm [facility] Work Phone: 1(529) 152-518306-12-2025 Consult note Author Zachary Lubin [facility] Note Date/Time September 01, 2024 9:15 pm [facility] Medical Records Department [address] [place] [address] Pharmacokinetic/Renal -Consult 09/01/242113 MR#: [id number] Acct: [id number] Name: ROBY FLORES Rep #:[id number] : 1935 89 From: Zachary Serrano od PCP: Dr. Stas Mora MD Status:AD M [facility] Y Location: [place] [address] Consult Antibiotic Management Pharmacy has been consulted to manage selected antibiotic: Vancomycin Type of Intervention Type of Consult: New start Labs Labs: Sodium 139 mmol/L (133-145) 09/01/24 08:01 Potassium 3.7 mmol/L (3.3-5.1) 09/01/24 08:01 Chloride 105 mmol/L (98-108) 09/01/24 08:01 Carbon Dioxide 24.3 mmol/L (21.0-32.0) 09/01/24 08:01 Anion Gap 10 (5-15) 09/01/24 08:01 BUN 17 mg/dL (4-19) 09/01/24 08:01 Creatinine 0.77 mg/dL (0.70-1.20) 09/01/24 08:01 Est GFR (MDRD) Non-Af 86 (>60) 09/01/24 08:01 BUN/Creatinine Ratio 21.6 RATIO (10-20) H 09/01/24 08:01 Glucose 112 mg/dL (70-99) H 09/01/24 08:01 Dosing Weight Weight used for dosin.4 kg Estimated Creatinine Clearance Estimated Creatinine Clearance: 69 Goal Trough Goal Trough: 15-20 mcg/mL Pharmacy Plan for Drug Dosing Pharmacy Plan for Drug Dosing: Pharmacy Service will continue to monitor and adjust dosing as required. 1750MG GIVEN IN ER @2048. START 750MG Q12H AND DRAW TROUGH PRIOR TO 4TH DOSE Follow-Up Labs Follow-Up Labs: Trough: Vancomycin Date/Time Labs Ordered Labs to be done on [date and time ordered]: 09/03 @ 82909/01/242114 <Electronically signed by Zachary burton> Date _ Zachary Lubin Cosigner Signature (if applicable): Date _ CC: ~ Signed [facility] Work Phone: 1(402) 843-302906-12-2025 Progress note Author Marta Black [facility] Note Date/Time September 01, 2024 7:55 pm [facility] Medical Records Department [address] [place] [address] Progress Note - Hospitalist 09/01/241952 MR#: [id number] Acct: [id number] Name: ROBY FLORES Rep #:[id number] : 1935 89 From: Marta Black DO PCP: Dr. Stas Mora MD Status:AD M [facility] Location: [place] [id number] Hospitalist Note Called regarding Mr. Flores having a temperature of 101.1. He was given Tylenol. Reviewed admitting note and it appears he came in for generalized weakness and mechanical fall. He had also had a fall the day prior to presentation. It does not sound like he any other significant symptoms at the time of presentation. Upon review of his CBC he did have a leukocytosis and a left shift with an 87.5% neutrophilia. UA was unremarkable and chest x-ray was not suggestive of infection. He is hemodynamically stable. Will check sed rate, CRP, procalcitonin, COVID-19, respiratory viral panel, blood cultures, and start Vanco and Zosyn for now as the etiology of this fever is unclear at this time however with his leukocytosis and left shift I would be worried about an infection. Again source is not clear at this time. Monitor hemodynamics with the initiation of antibiotics. 09/01/241954 <Electronically signed by Marta Black DO> Cosigner Signature (if applicable): CC: ~ Signed [facility] Work Phone: 1(973) 305-876206-12-2025 Consult note [facility] Medical Records Department [address] [place] [address] Pharmacokinetic/Renal -Consult 09/01/242113 MR#: [id number] Acct: [id number] Name: ROBY FLORES Rep #:[id number] : 1935 89 From: Zachary Serrano od PCP: Dr. Stas Mora MD Status:AD M [facility] Y Location: [place] [address] Consult Antibiotic Management Pharmacy has been consulted to manage selected antibiotic: Vancomycin Type of Intervention Type of Consult: New start Labs Labs: Sodium 139 mmol/L (133-145) 09/01/24 08:01 Potassium 3.7 mmol/L (3.3-5.1) 09/01/24 08:01 Chloride 105 mmol/L (98-108) 09/01/24 08:01 Carbon Dioxide 24.3 mmol/L (21.0-32.0) 09/01/24 08:01 Anion Gap 10 (5-15) 09/01/24 08:01 BUN 17 mg/dL (4-19) 09/01/24 08:01 Creatinine 0.77 mg/dL (0.70-1.20) 09/01/24 08:01 Est GFR (MDRD) Non-Af 86 (>60) 09/01/24 08:01 BUN/Creatinine Ratio 21.6 RATIO (10-20) H 09/01/24 08:01 Glucose 112 mg/dL (70-99) H 09/01/24 08:01 Dosing Weight Weight used for dosin.4 kg Estimated Creatinine Clearance Estimated Creatinine Clearance: 69 Goal Trough Goal Trough: 15-20 mcg/mL Pharmacy Plan for Drug Dosing Pharmacy Plan for Drug Dosing: Pharmacy Service will continue to monitor and adjust dosing as required. 1750MG GIVEN IN ER @2048. START 750MG Q12H AND DRAW TROUGH PRIOR TO 4TH DOSE Follow-Up Labs Follow-Up Labs: Trough: Vancomycin Date/Time Labs Ordered Labs to be done on [date and time ordered]: 09/03 @ 30 09/01/24 2115 lood> Date _ Zachary Juárezignrowdy Signature (if applicable): Date _ CC: ~ Signed [facility]06-12-2025 History and physical note Author Kathy [facility] Note Date/Time September 01, 2024 6:04 pm [facility] Medical Records Department [address] [place] [address] H&P Exam - Hospitalist 09/01/24 1018 MR#: [id number] Acct: [id number] Name: ROBY FLORES Rep #:[id number] : 1935 89 From: Kathy Wells MD PCP: Dr. Stas Mora MD Status:AD M [facility] Location: [place] [id number] HPI - General General Date of Admission: 09/01/24 Date of Service: 09/01/24 Chief Complaint: mechanical fall HPI Narrative ROBY FLORES, is a 89 M with a PMH as outlined who presents via the ED On 09/01/2024 with a complaint of weakness and mechanical fall. He fell whilst in the bathroom this morning.He had also fallen the day before admission. He is on coumadin on account of afib. He complained of hip discomfort after hte fall. He did not hit his head. He denied any dizziness, lightheadedness, nausea, vomitingor any other symptoms. He could not ambulate in the ED due to mechanical fall. Review of systems was otherwise negative. History was mainly obtained from his significant other and his daughter. According to the significant other he had fallen further 2 prior days as stated and also said his last fall was about a year ago. She said his legs just gave way and he fell. He was unable to get upand they had to call the EMS to get him up. He did not hit his head. As far asshe knew he had not had any lightheadedness or dizziness, palpitations, nausea vomiting or any other such symptoms. Vitals in the ED were BP of 180/89, TX of 87, RR of 18 and temp of 98.9F. He wassaturating at 99% on room air. CBC showed Hb of 11.6, wbc of 12.98 and plateletsof 258. INR was 1.8. Chemistry showed sodium of 139, potassium of 3.7 and anion gap of 10. Cr was 0.77. URinalysis showed no evidence of UTI. CT brain showed cerebral atrophy and mucosal thickening of the ethmoid sinuses as well as opacification of the left maxillary sinus. Xray of the hip and pelvic xray showed miuld degree of joint space narrowing of both hip joints and no evidence of fracture or dislocation. He is being admitted to be managed for debility and weakness due to mechanical fall. [facility] Medical History Chronic anticoagulation TIA (transient ischemic attack) Anticoagulant long-term use CAD (coronary artery disease) Home Medications ?Medication ?Instructions ?Recorded ?Last Taken ?Type warfarin 2.5 mg tablet 2.5 mg PO DAILY blood thinne r 10/06/17 10/06/17 History atorvastatin 40 mg tablet 40 mg PO QHS #30 tabs Unknown Rx lisinopril 10 mg tablet 10 mg PO DAILY #30 tabs 05/14 Unknown Rx memantine 10 mg tablet [...] use type: does not use ROS ROS Narrative mainly obtained from significant other and daughter Constitutional Constitutional: Reports fatigue, malaise and weakness; Denies anorexia, chills or fever(s) Eyes Eyes: Denies change in vision ENT HEENT: Denies dysphagia, headache(s) or sinus pressure Cardiovascular Cardiovascular: Reports paroxysmal nocturnal dyspnea; Denies chest pain, dyspneaon exertion, edema, lightheadedness, orthopnea, palpitations or rapid heart rate Respiratory/Chest Respiratory/Chest: Denies cough, dyspnea, shortness of breath at rest or shortness of breath with exertion Gastrointestinal Gastrointestinal: Denies constipation, nausea or vomiting Genitourinary Genitourinary: Denies dysuria Neurologic Neurologic: Reports confusion; Denies dizziness, focal weakness or headache(s) Vital Signs Vital Signs Vital Signs: 09/01/24 07:31 09/01/24 07:36 09/01/24 [...] 119 Pulse Ox 99 Oxygen Delivery Method Weight Weight: 173 lb 1.006 oz Body Mass Index (BMI) 23.4 Physical Exam Const alert Constitutional Narrative: frail, weak, confused General Appearance: cooperative Orientation / Consciousness: confused and disoriented HEENT normocephalic and head/scalp atraumatic HEENT Narrative: dry oral mucosa Eyes EOMs intact bilaterally and conjunctivae normal Neck supple and no JVD Resp normal respiratory effort, no use of accessory muscles and clear to auscultationbilaterally Cardio regular rate, regular rhythm, S1 normal heart sound, S2 normal heart sound and no murmurs GI normal to inspection, nondistended, normoactive bowel sounds, soft to palpation,non-tender and non-distended Extremity normal to inspection, full ROM and no clubbing, cyanosis or edema Neuro Neuro Narrative: alert, confused, moves all extremities, weak and frail. Psych Psych Narrative: flat affect Results Lab / Micro Data 09/01/24 08:01 09/01/24 08:01 Labs: Laboratory Results - last 24 hr 09/01/24 08:01: WBC 12.9 H, RBC 4.72, Hgb 11.6 L, Hct 36.8 L, MCV 78.0 L, MCH 24.6 L, MCHC 31.5 L, RDW Std Deviation 48.2 H, RDW Coeff of Boom 17.2 H, Plt Count 258, MPV 9.4, Immature Gran % (Auto) 0.400, Neut % (Auto) 87.5 H, Lymph % (Auto) 4.8 L, [place] % (Auto) 5.7, Eos % (Auto) 1.2, Baso % (Auto) 0.4, Absolute Neuts (auto) 11.3 H, Absolute Lymphs (auto) 0.62 L, Nucleated RBC % 0, PT 21.4 H, INR 1.8, Sodium 139, Potassium 3.7, Chloride 105, Carbon Dioxide 24.3, Anion Gap 10, BUN 17, Creatinine 0.77, Estim Creat Clear Calc 68.71, Est GFR (MDRD) Non-Af 86, BUN/Creatinine Ratio 21.6 H, Glucose 112 H, Calcium 8.8 09/01/24 09:46: Urine Color Yellow, Urine Clarity Clear, Urine pH 8.0, Ur Specific [place] 1.010, Urine Protein 15 H, Urine Glucose (UA) Normal, Urine Ketones Negative, Urine Occult Blood 10 H, Urine Nitrite Negative, Urine Bilirubin Negative, Urine Urobilinogen 4 H, Ur Leukocyte Esterase Negative, Urine RBC 0 SEEN, Urine WBC 0 SEEN, Ur Squamous Epith Cells 0 SEEN, Urine Bacteria 0 SEEN, Urine Mucus 0 SEEN Imaging Radiology Impression Hip/Pelvis X-Ray 09/01/24 07:57 IMPRESSION: Degenerative changes of both hip joints. No fracture or dislocation present. Reading Location: [facility]--[address] 09/01/24 09:05 IMPRESSION: Cerebral atrophy. Mucosal thickening of the ethmoid sinuses as well as opacification of the left maxillary sinus. Reading Location: [facility] Chest X-Ray 09/01/24 09:25 IMPRESSION: No acute abnormality is seen. Reading Location: [facility] Assessment & Plan Assessment/Plan (1) Adult failure to thrive: (2) Fall: (3) Unable to ambulate: (4) Contusion of hip: PLAN: Plan #Debility and weakness due to mechanical falls * Patient admitted with a complaint of mechanical falls. He fell on the day of admission and also fell the day before. His legs just gave way. The EMS had to be called both times to get him off. * states the last time he fell was about 2 years ago. He is on Coumadin for A-fib. * Imaging done showed no evidence of any fractures. CT of the brain showed no evidence of intracranial bleed. * Admit to MedSurg. Hydrate gently with IV fluids. * PT OT on board. Fall precautions. * #History of A-fib: * On Coumadin. INR is 1.8. Not on any rate or rhythm limiting medication. * I spoke to the patient's daughter and extensively about the risk of brain bleed with his history of falls as well as the risk of stroke if he is taking of the Coumadin. * I explained to them that would have to be a shared decision making process and the remaining power to make the decision they felt was in the best interest of the patient. * The daughter is the healthcare power of energy attorney. * In light of patient's confusion in the setting of dementia, she would ultimately have to make decisions feels in the best interest of her father. * She was counseled that she would need to think about it and let the medical team know what she had decided. * #History of dementia: On rivastigmine #Dyslipidemia: On statin #Benign essential hypertension: On lisinopril. DVT prophylaxis: * SCDs for now. * Hold Coumadin in light of patient who had a mechanical fall today. * Will resume tomorrow unless family decides that they wants this medication to be stopped. * Code status: DNRCCA no intubation * Patient counseled extensively about different types of CODE STATUS including full code, DNR CCA and DNR CCA. * PEr and daughter. Patient would not want CPR or intubation and has always been clear about that to them. They will therefore elect for him to be DNR CCA no intubation. * Total wlyf-lv-wnat time 16 minutes. Charges/Coding Visit Charges Inpatient E&M: 56104 Init Hosp L3 Procedures Hospitalists Procedures: 79147 Advncd Care Plan 30 Min 09/01/24 1804 <Electronically signed by Kathy Wells MD> Cosigner Signature (if applicable): CC: Dr. Stas Mora MD; Dr. Kathy Wells MD~ Signed [facility] Work Phone: 1(836) 762-236106-12-2025 Progress note [facility] Medical Records Department [address] [place] [address] Progress Note - Hospitalist 09/01/241952 MR#: [id number] Acct: [id number] Name: ROBY FLORES Rep #:[id number] : 1935 89 From: Marta Black DO PCP: Dr. Stas Mora MD Status:[facility] Location: [place] [address] Hospitalist Note Called regarding Mr. Flores having a temperature of 101.1. He was given Tylenol. Reviewed admitting note and it appears he came in for generalized weakness and mechanical fall. He had also had a fall the day prior to presentation. It does not sound like he any other significant symptoms at the ti me of presentation. Upon review of his CBC he did have a leukocytosis and a left shift with an 87.5% neutrophilia. UA was unremarkable and chest x-ray was not suggestive of infection. He is hemodynamically stable. Will check sed rate, CRP, procalcitonin, COVID-19, respiratory viral panel, blood cultures, and start Vanco and Zosyn for now as the etiology of this fever is unclear at this time however with his leukocytosis and left shift I would be worried about an infection. Again source is not clear at this time. Monitor hemodynamics with the initiation of antibiotics. 09/01/241954 Cosigner Signature (if applicable): CC: ~ Signed [facility]06-12-2025 History and physical note [facility] Medical Records Department [address] [place] [address] H&P Exam - Hospitalist 09/01/24 1018 MR#: [id number] Acct: [id number] Name: ROBY FLORES Rep #:[id number] : 1935 89 From: Kathy Wells MD PCP: Dr. Stas Mora MD Status:AD M [id number] HPI - General General Date of Admission: 09/01/24 Date of Service: 09/01/24 Chief Complaint: mechanical fall HPI Narrative ROBY FLORES, is a 89 M with a PMH as outlined who presents via the ED On 09/01/2024 with a complaint of weakness and mechanical fall. He fell whilst in the bathroom this morning.He had also fallen the day before admission. He is on coumadin on account of afib. He complained of hip discomfort after hte fall. He did not hit his head. He denied any dizziness, lightheadedness, nausea, vomitingorany other symptoms. He could not ambulate in the ED due to mechanical fall. Review of systems was otherwise negative. History was mainly obtained from his significant other and his daughter. According to the significant other he had fallen further 2 prior days as stated and also said his last fall was about a year ago. She said his legs just gave way and he fell. He was unable to get upand they had to call the EMS to get him up. He did not hit his head. As far asshe knew he had not had any lightheadedness or dizziness, palpitations, nausea vomiting or any other such symptoms. Vitals in the ED were BP of 180/89, TX of 87, RR of 18 and temp of 98.9F. He wassaturating at 99% on room air. CBC showed Hb of 11.6, wbc of 12.98 and plateletsof 258. INR was 1.8. Chemistry showed sodium of 139, potassium of 3.7 and anion gap of 10. Cr was 0.77. URinalysis showed no evidence of UTI. CT brain showed cerebral atrophy and mucosal thickening of the ethmoid sinuses as well as opacification of the left maxillary sinus. Xray of the hip and pelvic xray showed miuld degree of joint space narrowing of both hip joints and no evidence of fracture or dislocation. He is being admitted to be managed for debility and weakness due to mechanical fall. [facility] Medical History Chronic anticoagulation TIA (transient ischemic attack) Anticoagulant long-term use CAD (coronary artery disease) Home Medications ?Medication ?Instructions ?Recorded ?Last Taken ?Type warfarin 2.5 mg tablet 2.5 mg PO DAILY blood thinne r 10/06/17 10/06/17 History atorvastatin 40 mg tablet 40 mg PO QHS #30 tabs Unknown Rx lisinopril 10 mg tablet 10 mg PO DAILY #30 tabs 05/14 Unknown Rx memantine 10 mg tablet [...] use type: does not use ROS ROS Narrative mainly obtained from significant other and daughter Constitutional Constitutional: Reports fatigue, malaise and weakness; Denies anorexia, chills or fever(s) Eyes Eyes: Denies change in vision ENT HEENT: Denies dysphagia, headache(s) or sinus pressure Cardiovascular Cardiovascular: Reports paroxysmal nocturnal dyspnea; Denies chest pain, dyspneaon exertion, edema,lightheadedness, orthopnea, palpitations or rapid heart rate Respiratory/Chest Respiratory/Chest: Denies cough, dyspnea, shortness of breath at rest or shortness of breath with exertion Gastrointestinal Gastrointestinal: Denies constipation, nausea or vomiting Genitourinary Genitourinary: Denies dysuria Neurologic Neurologic: Reports confusion; Denies dizziness, focal weakness or headache(s) Vital Signs Vital Signs Vital Signs: 09/01/24 07:31 09/01/24 07:36 09/01/24 [...] 119 Pulse Ox 99 Oxygen Delivery Method Weight Weight: 173 lb 1.006 oz Body Mass Index (BMI) 23.4 Physical Exam Const alert Constitutional Narrative: frail, weak, confused General Appearance: cooperative Orientation / Consciousness: confused and disoriented HEENT normocephalic and head/scalp atraumatic HEENT Narrative: dry oral mucosa Eyes EOMs intact bilaterally and conjunctivae normal Neck supple and no JVD Resp normal respiratory effort, no use of accessory muscles and clear to auscultationbilaterally Cardio regular rate, regular rhythm, S1 normal heart sound, S2 normal heart sound and no murmurs GI normal to inspection, nondistended, normoactive bowel sounds, soft to palpation,non-tender and non-distended Extremity normal to inspection, full ROM and no clubbing, cyanosis or edema Neuro Neuro Narrative: alert, confused, moves all extremities, weak and frail. Psych Psych Narrative: flat affect Results Lab / Micro Data 09/01/24 08:01 09/01/24 08:01 Labs: Laboratory Results - last 24 hr 09/01/24 08:01: WBC 12.9 H, RBC 4.72, Hgb 11.6 L, Hct 36.8 L, MCV 78.0 L, MCH 24.6 L, MCHC 31.5 L, RDW Std Deviation 48.2 H, RDW Coeff of [place]om 17.2 H, Plt Count 258, MPV 9.4, Immature Gran % (Auto) 0.400, Neut % (Auto) 87.5 H, Lymph % (Auto) 4.8 L, [place] % (Auto) 5.7, Eos % (Auto) 1.2, Baso % (Auto) 0.4, Absolute Neuts (auto) 11.3 H, Absolute Lymphs (auto) 0.62 L, Nucleated RBC % 0, PT 21.4 H, INR 1.8, Sodium 139, Potassium 3.7, Chloride 105, Carbon Dioxide 24.3, Anion Gap 10, BUN 17, Creatinine 0.77, Estim Creat Clear Calc 68.71, Est GFR (MDRD) Non-Af 86, BUN/Creatinine Ratio 21.6 H, Glucose 112 H, Calcium 8.8 09/01/24 09:46: Urine Color Yellow, Urine Clarity Clear, Urine pH 8.0, Ur Specific [place] 1.010, Urine Protein 15 H, Urine Glucose (UA) Normal, Urine Ketones Negative, Urine Occult Blood 10 H, UrineNitrite Negative, Urine Bilirubin Negative, Urine Urobilinogen 4 H, Ur Leukocyte Esterase Negative,Urine RBC 0 SEEN, Urine WBC 0 SEEN, Ur Squamous Epith Cells 0 SEEN, Urine Bacteria 0 SEEN, Urine Mucus 0 SEEN Imaging Radiology Impression Hip/Pelvis X-Ray 09/01/24 07:57 IMPRESSION: Degenerative changes of both hip joints. No fracture or dislocation present. Reading Location: [facility] 09/01/24 09:05 IMPRESSION: Cerebral atrophy. Mucosal thickening of the ethmoid sinuses as well as opacification of the left maxillary sinus. Reading Location: [facility] Chest X-Ray 09/01/24 09:25 IMPRESSION: No acute abnormality is seen. Reading Location: [facility] Assessment & Plan Assessment/Plan (1) Adult failure to thrive: (2) Fall: (3) Unable to ambulate: (4) Contusion of hip: PLAN: Plan #Debility and weakness due to mechanical falls * Patient admitted with a complaint of mechanical falls. He fell on the day of admission and also fell the day before. His legs just gave way. The EMS had to be called both times to get him off. * states the last time he fell was about 2 years ago. He is on Coumadin for A-fib. * Imaging done showed no evidence of any fractures. CT of the brain showed no evidence of intracranial bleed. * Admit to MedSurg. Hydrate gently with IV fluids. * PT OT on board. Fall precautions. * #History of A-fib: * On Coumadin. INR is 1.8. Not on any rate or rhythm limiting medication. * I spoke to the patient's daughter and extensively about the risk of brain bleed with his history of falls as well as the risk of stroke if he is taking of the Coumadin. * I explained to them that would have to be a shared decision making process and the remaining power to make the decision they felt was in the best interest of the patient. * The daughter is the healthcare power of energy attorney. * In light of patient's confusion in the setting of dementia, she would ultimately have to make decisions feels in the best interest of her father. * She was counseled that she would need to think about it and let the medical team know what she had decided. * #History of dementia: On rivastigmine #Dyslipidemia: On statin #Benign essential hypertension: On lisinopril. DVT prophylaxis: * SCDs for now. * Hold Coumadin in light of patient who had a mechanical fall today. * Will resume tomorrow unless family decides that they wants this medication to be stopped. * Code status: DNRCCA no intubation * Patient counseled extensively about different types of CODE STATUS including full code, DNR CCA and DNR CCA. * PEr and daughter. Patient would not want CPR or intubation and has always been clear about that to them. They will therefore elect for him to be DNR CCA no intubation. * Total hzeh-yc-jbgi time 16 minutes. Charges/Coding Visit Charges Inpatient E&M: 22887 Init Hosp L3 Procedures Hospitalists Procedures: 42105 Advncd Care Plan 30 Min 09/01/24 1804 Cosigner Signature (if applicable): CC: Dr. Stas Mora MD; Dr. Kathy Wells MD~ Signed [facility]06-12-2025 Telephone encounter Note* Telephone Encounter - Haydee Oliveros LPN - 09/01/2024 2:49 PM EDT Mychart message sent [facility]06-12-2025 Miscellaneous Notes* Telephone Encounter - Haydee Oliveros LPN - 09/01/2024 2:49 PM EDT Mychart message sent * Telephone Encounter - Luciana Cisneros MD - 09/01/2024 1:26 PM EDT Thanks Russell, Staff please let patient know what the pharmacist as opined on. Regards, Luciana Cisneros MD * Telephone Encounter - Russell Aguayo RPh - 09/01/2024 9:46 AM EDT Images from the original note were not included. PCP reached out to PharmD regarding ways to get memantine tabs or rivastigmine patch at a reduced cost. Per recent PCP note, memantine was originally affordable at $18.75 but increased to ~$55. Rivastigmine patch was ordered yesterday. [facility] called pharmacy and confirmed copay is $100 x 30 patches. Memantine (Namenda) tablets are available at a more affordable alvarado using Good Rx coupons. At [facility] (his current pharmacy), he can get a 1 mo supply for ~$30. If he switches the prescription to [facility], he can get a 1 mo supply for ~$20. See coupons below. Rivastigmine patches are also available via [employer]. It appears the cheapest option is through [facility], in which he can get 30 patches for $52. Coupon also below. Sending to PCP to review and provide patient with coupon card information. Russell Aguayo PharmD, [facility] Primary Care Clinical Pharmacist Memantine coupon at [facility] Memantine coupon at [facility] Rivastigmine patches coupon at [facility] documented in this encounterLicking [facility] Hospital06-12-2025 Telephone encounter Note * Telephone Encounter - Luciana Cisneros MD - 09/01/2024 1:26 PM EDT Thanks Russell, Staff please let patient know what the pharmacist as opined on. Regards, Luciana Cisneros MD [facility]06-12-2025 Discharge summary Author Inderjit Gillespie [facility] Note Date/Time September 01, 2024 10:2 5am [facility] Medical Records Department [address] [place] [address] Emergency Department Summary 09/01/24 MR#: [id number] Acct: [id number] Name: ROBY FLORES Rep #:[id number] : [...] similar symptoms: No Recent Illness/Hospitalization: No PFSH PFS Medical History Chronic anticoagulation TIA (transient ischemic attack) Anticoagulant long-term use CAD (coronary artery disease) Home Medications ?Medication ?Instructions ?Recorded ?Last Taken ?Type warfarin 2.5 mg tablet 2.5 mg PO DAILY blood thinne r 10/06/17 10/06/17 History atorvastatin 40 mg tablet 40 mg PO QHS #30 tabs Unknown Rx lisinopril 10 mg tablet 10 mg PO DAILY #30 tabs 05/14 Unknown Rx memantine 10 mg tablet [...] shoulders elbows and wrist. 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 Neurologically he is awake alert. Answering [...] 87.5 H Lymph % (Auto) 4.8 L [place] % (Auto) 5.7 Eos % (Auto) 1.2 [...] Clarity Clear Urine pH 8.0 Ur Specific [place] 1.010 Urine Protein 15 H Urine Glucose [...] No fracture or dislocation present. Reading Location: [facility]-[address] 09/01/24 09:05 IMPRESSION: Cerebral atrophy. Mucosal thickening of the ethmoid sinuses as well as opacification of the left maxillary sinus. Reading Location: [facility]-1 Chest X-Ray 09/01/24 09:25 IMPRESSION: No acute abnormality is seen. Reading Location: [facility]-1 Chest x-ray, 2 views, AP and lateral, [...] to thrive Disposition Disposition: Acute Care Hospital [facility] What to do if you have Problems For any increased pain, shortness of breath, bleeding, nausea or vomiting, chestpain, or any unexpected problems, contact your Primary Care Provider. Call [facility] ([phone]) or report to the closest Emergency Room. Call 911 if necessary. 09/01/24 1025 <Electronically signed by Inderjit Gillespie MD> Cosigner Signature (if applicable): CC: Dr. Stas Mora MD ~ Signed [facility] Work Phone: 1(194) 569-938806-12-2025 Discharge summary [facility] Medical Records Department [address] [place] [address] Emergency Department Summary 09/01/24 MR#: [id number] Acct: [id number] Name: ROBY FLORES Rep #:[id number] : [...] similar symptoms: No Recent Illness/Hospitalization: No PFSH PFS Medical History Chronic anticoagulation TIA (transient ischemic attack) Anticoagulant long-term use CAD (coronary artery disease) Home Medications ?Medication ?Instructions ?Recorded ?Last Taken ?Type warfarin 2.5 mg tablet 2.5 mg PO DAILY blood thinne r 10/06/17 10/06/17 History atorvastatin 40 mg tablet 40 mg PO QHS #30 tabs Unknown Rx lisinopril 10 mg tablet 10 mg PO DAILY #30 tabs 1005/14 Unknown Rx memantine 10 mg tablet 10 [...] on room air no hypoxia. H EENT exampupils round reactive light. Extra motions are intact. He has no trauma or tenderness or bruising orabrasions to his face or scalp. C-spine and neck are nontender. Back and spineare nontender withoutany signs of trauma. Lungs clear to auscultation [...] shoulders elbows and wrist. 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 Neurologically he is awake alert. Answering [...] to person, orientation impaired and confused; Negative fororiented to place or oriented to time Motor [...] of hip pain exam is really not impressivehe can move the hip there is no gross deformity nor shortening. X-rays to be taken of both hips. Hedoes not need any pain meds. He is [...] 87.5 H Lymph % (Auto) 4.8 L [place] % (Auto) 5.7 Eos % (Auto) 1.2 [...] Clarity Clear Urine pH 8.0 Ur Specific [place] 1.010 Urine Protein 15 H Urine Glucose [...] No fracture or dislocation present. [facility] 09/01/24 09:05 IMPRESSION: Cerebral atrophy. Mucosal thickening of the ethmoid sinuses as well as opacification of the left maxillary sinus. Reading Location: [facility] Chest X-Ray 09/01/24 09:25 IMPRESSION: No acute abnormality is seen. Reading Location: [facility] Chest x-ray, 2 views, AP and [...] failure to thrive Disposition Disposition: Acute Care [facility] What to do if you have Problems For any increased pain, shortness of breath, bleeding, nausea or vomiting, chestpain, or any unexpected problems, contact your Primary Care Provider. Call [facility] ([phone]) or report tothe closest Emergency Room. Call 911 if necessary. 09/01/24 1025 Cosigner Signature (if applicable): CC: Dr. Stas Mora MD ~ Signed [facility]06-12-2025 Telephone encounter Note* Telephone Encounter - Russell Aguayo, [facility] - 09/01/2024 9:46 AM EDT Images from the original note were [...] affordable alvarado using Good Rx coupons. At [facility] (his current pharmacy), he can get a 1 mo supply for ~$30. If he switches the prescription to [facility], he can get a 1 mo supply for ~$20. See coupons below. Rivastigmine patches are also available via [employer]. It appears the cheapest option is through [facility], in which he can get 30 patches for $52. Coupon also below. Sending to PCP to review and provide patient with coupon card information. Russell Aguayo, PharmD, BCPS Primary Care Clinical Pharmacist Memantine coupon at [facility] Memantine coupon at [facility] Rivastigmine patches coupon at [facility] Work Phone: 1(573) 536-296106-12-2025 Radiology Diagnostic study note [facility] Imaging Services [address] [place], [place] [address] Brain/Head without Contrast MR#: [id number] Acct: [id number] Name: ROBY FLORES Rep #: [id number] : 1935 M 89 From: Laith Chavez MD PCP: Dr. tSas Mora MD Status: RE G ER Study:Brain/Head without Contrast Date of Exa m: 09/01/24 Exam# [id number] Ordering Dr: Earlene Gillespie MD PROCEDURE: BRAIN/HEAD [...] of the left maxillary sinus. Reading Location: [facility]- CC: Dr. Inderjit Gillespie MD; Dr. Stas Mora MD ~ Retail Warehouse Associate: Signed [facility]06-12-2025 Radiology Diagnostic study note [facility] Imaging Services [address] [place], [place] [id number] Chest 1 View (Portable) MR#: [id number] Acct: [id number] Name: ROBY FLORES Rep #: [id number] : 1935 M 89 From: Laith Chavez MD PCP: Dr. Stas Mora MD Status: RE G ER Study:Chest 1 View (Portable) Date of Exam: 09/01/24 Exam# [id number] Ordering Dr: Earlene Gillespie MD PROCEDURE: CHEST [...] No acute abnormality is seen. Reading Location: [facility]- CC: Dr. Inderjit Gillespie MD; Dr. Stas Mora MD ~ Retail Warehouse Associate: Signed [facility]06-12-2025 Radiology Diagnostic study note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 Pharmacy Anticoagulation Clinic Pharmacy Anticoagulation Clinic Pager: [phone]. [facility]06-26-2024 Miscellaneous Notes* Telephone Encounter - Colleen Sommer RPh - 09/16/2023 11:15 AM EDT [facility] Antico[facility] Anticoagulation Episode Summary Anticoagulation Care Providers Provider Role Specialty Phone number Stas Mora MD Referring Family Medicine [phone] Roby Flores is a 88 year old [...] plan. Patient denies need for refills. Colleen Sommer RPh Clinical Pharmacist, Pharmacy Anticoagulation Clinic Pharmacy Anticoagulation Clinic Pager: [phone]. documented in this encounterLicking Memorial Hospital06-25-2024 Instructions* Patient Instructions* Rosie Cruz MA - 09/15/2023 8:48 AM EDT Starting Lasix (Furosemide) 20 mg once daily as needed. You can use the medication on days where swelling is increased. Elevate legs through out the day to help with swelling. Decrease sodium in diet. documented in this encounterLicking Memorial Hospital06-25-2024 History of Present illness Narrative* Stas Mora [...] Coronary atherosclerosis of unspecified type of vessel, unalakleet or graft Coronary artery disease Other and [...] Past Histories independently gathered by the clinical sales support manager and the remaining scribed note accurately describes [...] AM. Rosie Cruz MA documented in this encounterLicking [facility] Hospital06-24-2024 Telephone encounter Note * Telephone Encounter - [...] difficulty breathing Protocols used: Leg Swelling and [id number] [facility]06-24-2024 Miscellaneous Notes* Telephone Encounter - Marian Corona [...] difficulty breathing Protocols used: Leg Swelling and [id number] * Telephone Encounter - Elana Valdes RN - 09/14/2023 2:52 PM EDT Called and left a voicemail for the Patient and on the Pts girlfriends phone to have the Pt call back and ask for a nurse to receive the providers message. We need more information about his bilateral leg swelling that he was scheduled for tomorrow. Elana Valdes RN documented in this encounterLicking Memorial Hospital06-24-2024 Telephone encounter Note * Telephone Encounter - Elana Valdes RN - 09/14/2023 2:52 PM EDT Called and left a voicemail for the Patient and on the Pts girlfriends phone to have the Pt call back and ask for a nurse to receive the providers message. We need more information about his bilateral leg swelling that he was scheduled for tomorrow. Elana Valdes RN [facility]06-12-2024 Telephone encounter Note* Telephone Encounter - Coretta Jalloh RP - 09/02/2023 3:08 PM EDT [facility] Anticoagulation Clinic Anticoagulation Episode Summary Anticoagulation Care Providers Provider Role Specialty Phone number Stas Mora MD Referring Family Medicine [phone] Roby Flores is a 88 year old [...] ALLERGIES No Known Allergies 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 Paroxysmal atrial fibrillation [...] Pharmacy Anticoagulation Clinic Pharmacy Anticoagulation Clinic Pager: [phone]. [facility]06-12-2024 Miscellaneous Notes* Telephone Encounter - Coretta Jalloh RPh - 09/02/2023 3:08 PM EDT [facility]tico[facility] Anticoagulation Episode Summary Anticoagulation Care Providers Provider Role Specialty Phone number Stas Mora MD Referring [facility] [phone] Roby Flores is a 88 year old [...] ALLERGIES No Known Allergies 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: care home current use of anticoagulant Paroxysmal atrial fibrillation [...] Pharmacy Anticoagulation Clinic Pharmacy Anticoagulation Clinic Pager: [phone]. documented in this encounterLicking Memorial Hospital06-05-2024 Telephone encounter Note * Telephone Encounter - Coretta Jalloh RPh - 08/26/2023 5:03 PM EDT [facility] Pharmacy Anticoagulation Clinic Anticoagulation Episode Summary Anticoagulation Care Providers Provider Role Specialty Phone number Stas Mora MD Referring Family Medicine [phone] Roby Flores is a 88 year old [...] ALLERGIES No Known Allergies 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: care home current use of anticoagulant Paroxysmal atrial fibrillation [...] Pharmacy Anticoagulation Clinic Pharmacy Anticoagulation Clinic Pager: [phone]. [facility]06-05-2024 Miscellaneous Notes* Telephone Encounter - Coretta Jalloh RPh - 08/26/2023 5:03 PM EDT [facility] Antico[facility] Anticoagulation Episode Summary Anticoagulation Care Providers Provider Role Specialty Phone number Stas Mora MD Referring Family Medicine [phone] Roby Flores is a 88 year old [...] ALLERGIES No Known Allergies 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: care home current use of anticoagulant Paroxysmal atrial fibrillation [...] Pharmacy Anticoagulation Clinic Pharmacy Anticoagulation Clinic Pager: [phone]. documented in this encounterLicking Memorial Hospital05-29-2024 Telephone encounter Note * Telephone Encounter - Coretta Jalloh RPh - 08/19/2023 5:09 PM EDT [facility] Anticoagulation Episode Summary Anticoagulation Care Providers Provider Role Specialty Phone number Stas Mora MD Referring Family Medicine [phone] Roby Flores is a 88 year old [...] Pharmacy Anticoagulation Clinic Pharmacy Anticoagulation Clinic Pager: [phone]. [facility]05-29-2024 Miscellaneous Notes* Telephone Encounter - Coretta Jalloh RPh - 08/19/2023 5:09 PM EDT [facility] Anticoagulation [facility] Anticoagulation Episode Summary Anticoagulation Care Providers Provider Role Specialty Phone number Stas Mora MD Referring Family Medicine [phone] Roby Flores is a 88 year old [...] Pharmacy Anticoagulation Clinic Pharmacy Anticoagulation Clinic Pager: [phone]. documented in this encounterLicking Memorial Hospital05-24-2024 History of Present illness Narrative* Stas Mora [...] thinks he is being sued by a mandaen and thathe was given a letter about it, doesn't know who the cash applications coordinator is or where the mandaen is. states this is not true. He was looking for his brother who lives out of state, thought he was still staying with them, however he has not been up to [place] since Nov. No hallucinations. Is not leaving the home [...] Coronary atherosclerosis of unspecified type of vessel, unalakleet or graft Coronary artery disease Other and [...] Past Histories independently gathered by the clinical sales support manager and the remaining scribed note accurately describes [...] AM. Marta Palacio MA documented in this encounterLicking Memorial Hospital05-22-2024 Telephone encounter Note * Telephone Encounter - Coretta Jalloh [facility] - 08/12/2023 4:27 PM EDT [facility] Antico[facility] Anticoagulation Episode Summary Anticoagulation Care Providers Provider Role Specialty Phone number Stas Mora MD Referring Family Medicine [phone] Roby Flores is a 87 year old [...] ALLERGIES No Known Allergies 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 Paroxysmal atrial fibrillation [...] Pharmacy Anticoagulation Clinic Pharmacy Anticoagulation Clinic Pager: [phone]. [facility]05-22-2024 Miscellaneous Notes* Telephone Encounter - Coretta Jalloh RPh - 08/12/2023 4:27 PM EDT [facility]tico[facility] Anticoagulation Episode Summary Anticoagulation Care Providers Provider Role Specialty Phone number Stas Mora MD Referring Family Medicine [phone] Roby Flores is a 87 year old [...] ALLERGIES No Known Allergies 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 Paroxysmal atrial fibrillation [...] Pharmacy Anticoagulation Clinic Pharmacy Anticoagulation Clinic Pager: [phone]. documented in this encounterLicking [facility] Hospital05-15-2024 Telephone encounter Note * Telephone Encounter - Coretta Jalloh RPh - 08/05/2023 4:41 PM EDT [facility] Anticoagulation Episode Summary Anticoagulation Care Providers Provider Role Specialty Phone number Stas Mora MD Referring Family Medicine [phone] Roby Flores is a 87 year old [...] ALLERGIES No Known Allergies 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: care home current use of anticoagulant Paroxysmal atrial fibrillation [...] Pharmacy Anticoagulation Clinic Pharmacy Anticoagulation Clinic Pager: [phone]. [facility]05-15-2024 Miscellaneous Notes* Telephone Encounter - Coretta Jalloh RPh - 08/05/2023 4:41 PM EDT [facility] Anticoagulation Episode Summary Anticoagulation Care Providers Provider Role Specialty Phone number Stas Mora MD Referring Family Medicine [phone] Roby Flores is a 87 year old [...] ALLERGIES No Known Allergies 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 Paroxysmal atrial fibrillation [...] Pharmacy Anticoagulation Clinic Pharmacy Anticoagulation Clinic Pager: [phone]. documented in this encounterLicking Memorial Hospital05-08-2024 Telephone encounter Note * Telephone Encounter - Elena Lopez RPh - 07/29/2023 3:21 PM EDT [facility] Anticoagulation Episode Summary Anticoagulation Care Providers Provider Role Specialty Phone number Stas Mora MD Referring Family Medicine [phone] Roby Flores is a 87 year old [...] ALLERGIES No Known Allergies 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: care home current use of anticoagulant Paroxysmal atrial fibrillation [...] Pharmacy Anticoagulation Clinic Pharmacy Anticoagulation Clinic Pager: [phone]. [facility]05-08-2024 Miscellaneous Notes* Telephone Encounter - Elena Lopez RPh - 07/29/2023 3:21 PM EDT [facility] Anticoagulation Episode Summary Anticoagulation Care Providers Provider Role Specialty Phone number Stas Mora MD Referring Family Medicine [phone] Roby Flores is a 87 year old [...] ALLERGIES No Known Allergies 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 Elena Lopez [facility]ly [facility] Clinical Pharmacist, Pharmacy Anticoagulation Clinic Pharmacy Anticoagulation Clinic Pager: [phone]. documented in this encounterLicking [facility]05[facility] Telephone encounter Note * Telephone Encounter - Coretta Jalloh RPh - 07/22/2023 4:40 PM EDT [facility] Anticoagulation Episode Summary Anticoagulation Care Providers Provider Role Specialty Phone number Stas Mora MD Referring Family Medicine [phone] Roby Flores is a 87 year old [...] ALLERGIES No Known Allergies 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 Paroxysmal atrial fibrillation [...] Pharmacy Anticoagulation Clinic Pharmacy Anticoagulation Clinic Pager: [phone]. [facility]05-01-[facility]24 Miscellaneous Notes* Telephone Encounter - Coretta Jalloh RPh - 07/22/2023 4:40 PM EDT [facility] Anticoagulation Episode Summary Anticoagulation Care Providers Provider Role Specialty Phone number Stas Mora MD Referring Family Medicine [phone] Roby Flores is a 87 year old [...] ALLERGIES No Known Allergies 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: care home current use of anticoagulant Paroxysmal atrial fibrillation [...] Pharmacy Anticoagulation Clinic Pharmacy Anticoagulation Clinic Pager: [phone]. documented in this encounterLicking [facility] Hospital04-24-[facility]24 Telephone encounter Note * Telephone Encounter - Coretta Jalloh RPh - 07/15/2023 3:18 PM EDT [facility] Anticoagulation Episode Summary Anticoagulation Care Providers Provider Role Specialty Phone number Stas Mora MD Referring Family Medicine [phone] Roby Flores is a 87 year old [...] ALLERGIES No Known Allergies 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 Paroxysmal atrial fibrillation [...] Pharmacy Anticoagulation Clinic Pharmacy Anticoagulation Clinic Pager: [phone]. [facility]04[facility] Miscellaneous Notes* Telephone Encounter - Coretta Jalloh RPh - 07/15/2023 3:18 PM EDT [facility] Anticoagulation Episode Summary Anticoagulation Care Providers Provider Role Specialty Phone number Stas Mora MD Referring Family Medicine [phone] Roby Flores is a 87 year old [...] ALLERGIES No Known Allergies 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: care home current use of anticoagulant Paroxysmal atrial fibrillation [...] Pharmacy Anticoagulation Clinic Pharmacy Anticoagulation Clinic Pager: [phone]. documented in this encounterLicking [facility] Hospital04-17-2024 Miscellaneous Notes* Telephone Encounter - Coretta Jalloh RPh - 07/08/2023 4:36 PM EDT [facility] Anticoagulation Episode Summary Anticoagulation Care Providers Provider Role Specialty Phone number Stas Mora MD Referring [facility] [phone] Roby Flores is a 87 year old [...] ALLERGIES No Known Allergies 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 Paroxysmal atrial fibrillation [...] Patient requests need for refills. Coretta Jalloh [facility]ly [facility] Clinical Pharmacist, Pharmacy Anticoagulation Clinic Pharmacy Anticoagulation Clinic Pager: [phone]. documented in this encounterLicking [facility] Hospital04-10-2024 Miscellaneous Notes* Telephone Encounter - Coretta Jalloh RPh - 07/01/2023 5:20 PM EDT [facility] Anticoagulation Episode Summary Anticoagulation Care Providers Provider Role Specialty Phone number Stas Mora MD Referring Family Medicine [phone] Roby Flores is a 87 year old [...] ALLERGIES No Known Allergies 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 Paroxysmal atrial fibrillation [...] INR check scheduled on 07/08/2023 Coretta Jalloh RPh Clinical Pharmacist, Pharmacy Anticoagulation Clinic Pharmacy Anticoagulation Clinic Pager: [phone]. documented in this encounterLicking [facility] Hospital04-04-2024 Telephone encounter Note * Telephone Encounter - Adrian ([email or web address])Elana - 06/25/2023 5:14 PM EDT Images from [...] remains on Remote TM list. Elana Campbell ([email or web address]) [facility]04-04-2024 Miscellaneous Notes* Telephone Encounter - Adrian [email or web address])Elana - 06/25/2023 5:14 PM EDT Images from [...] remains on Remote TM list. Elana Campbell (Art Teacher) * Telephone Encounter - Stas Mora MD - 06/25/2023 4:44 PM EDT It looks like my office became involved because the on-call doctor was called with his elevated INR. I would prefer he stay with the pharmacy for his routine monitoring. Stas Mora MD * Telephone Encounter - Adrian (Art Teacher)Elana - 06/25/2023 4:03 PM EDT Pharm Phone [...] this time Please advise. Elana Campbell CPhT (Biomass Boiler Operator) Pharmacy Anticoagulation Clinic documented in this encounterLicking [facility] Hospital04-04-2024 Telephone encounter Note * Telephone Encounter - Stas Mora MD - 06/25/2023 4:44 PM EDT It looks like my office became involved because the on-call doctor was called with his elevated INR. I would prefer he stay with the pharmacy for his routine monitoring. Stas Mora MD [facility]04-04-2024 Telephone encounter Note* Telephone Encounter - Adrian (Art Teacher)Elana - 06/25/2023 4:03 PM EDT Pharm Phone [...] this time Please advise. Elana Campbell CPhT (Biomass Boiler Operator) Pharmacy Anticoagulation Clinic [facility]04-03-20[facility] Miscellaneous Notes* Telephone Encounter - Jason Easton MD - 06/24/2023 4:46 PM EDT Order approved. Take as directed in earlier message. * Telephone Encounter - Keke Tsang MA - 06/24/2023 4:35 PM EDT Patient and spouse notified. Pt reports that he cannot find 1 mg warfarin bottle today "at all". Requesting new RX be sent to pharmacy today. Order pended. Keke Tsang MA * Telephone Encounter - Jason Easton MD - 06/24/2023 4:26 PM EDT INR low. Increase coumadin to 2 mg Thurs, Fri and 1 mg all other days. Recheck in 1 week. * Telephone Encounter - Keke Tsang MA - 06/24/2023 4:10 PM EDT INR Date Value Ref Range Status 06/24/2023 1.3 0.9 - 1.3 Final Comment: Vitamin K Antagonist (VKA) Therapeutic Range: INR 2 to 3 (Target INR of 2.5) Note: For patients treated with VKA drugs, such as warfarin, the [employer] [place] [employer] 2012 Guideline recommends [...] etc. Keke Tsang MA documented in this encounterLicking Memorial Hospital03-22-2024 Miscellaneous Notes* Telephone Encounter - Marta Palacio [...] no Rosie Cruz Ma documented in this encounterLicking [facility] Hospital03-18-2024 Miscellaneous Notes* Telephone Encounter - Keke Ferraro [...] Information or narrative: no documented in this encounterLicking Memorial Hospital03-15-2024 Miscellaneous Notes* Telephone Encounter - Halina Alfaro [...] went over notes below from Jenna Fitzpatrick PAINT STRIPPER. She said no change in his diet, not taking any antibiotics, has not taken double dose. Patient currently taking coumadin2.5 mg daily. * Telephone Encounter - Jenna Fitzpatrick APRN.INSOLE LIP TURNER - 06/05/2023 9:11 AM EDT Attempted to call the patient and daughter to discuss critical lab value that was received yesterday. On-call provider tried calling the patient last night several times without answer. I attempted to call the patient again this morning and his daughter without answer. INR was 6.9. Jenna Fitzpatrick APRN.SHEMAR documented in this encounterLicking Memorial Hospital03-15-2024 Miscellaneous Notes* Telephone Encounter - Marta Palacio MA - 06/05/2023 10:15 AM EDT See phone note 06/05/23 with Jenna Fitzpatrick. Marta Palacio MA * Telephone Encounter - Jasmin Bell MD - 06/04/2023 7:59 PM EDT Been trying to call patient at numbers give and goes straight to . Sending [facility] message in case will see that sooner. After multiple attempts, I called [facility]OC. They cannot call the patient but if the patient calls them, they will conference call with me. documented in this encounterLicking Memorial Hospital03-15-2024 Miscellaneous Notes* Telephone Encounter - Marta Palacio MA - 06/05/2023 10:06 AM EDT See other phone note sent to Jenna Fitzpatrick. Marta Palacio MA * Telephone [...] messages on his mobile as well as Marai Guadalupe Salguero's phone. Also left a message on daughter Anabella's mobile. Sent a [employer] message too. Called [facility] and the will conference call me if patient calls them. documented in this encounterLicking Memorial Hospital03-14-2024 Miscellaneous Notes* Telephone Encounter - Hortencia Winston RN - 06/04/2023 8:[address] Bell has left messages for the patient to call back regarding a critical lab. documented in this encounterLicking Memorial Hospital03-14-2024 Miscellaneous Notes* Telephone Encounter - Minda Solorzano [...] LPN * Telephone Encounter - Jenna Fitzpatrick APRN.INSOLE LIP TURNER - 06/04/2023 11:37 AM EDT Can you [...] has any questions. Thank you. Jenna Fitzpatrick APRN.INSOLE LIP TURNER documented in this encounterLicking Memorial Hospital03-13-2024 Miscellaneous Notes* Telephone Encounter - Coretta Jalloh [facility] - 06/03/2023 3:22 PM EDT [facility] Antico[facility] Clinic Anticoagulation Episode Summary Anticoagulation Care Providers Provider Role Specialty Phone number Stas Mora MD Referring Family Medicine [phone] Roby Flores is a 87 year old [...] ALLERGIES No Known Allergies 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 Paroxysmal atrial fibrillation [...] Pharmacy Anticoagulation Clinic Pharmacy Anticoagulation Clinic Pager: [phone]. documented in this encounterLicking Memorial Hospital03-11-2024 History of Present illness Narrative* Stas Mora [...] Coronary atherosclerosis of unspecified type of vessel, unal[place]leet or graft Coronary artery disease Other and [...] unspecified vessel or lesion type, unspecified whether unalakleet or transplanted heart - ICD9: 414.00, ICD10: [...] Past Histories independently gathered by the clinical sales support manager and the remaining scribed note accurately describes [...] PM. Marta Palacio MA documented in this encounterLicking Memorial Hospital03-06-2024 Miscellaneous Notes* Telephone Encounter - Coretta Jalloh [facility] - 05/27/2023 2:23 PM EST [facility] Anticoagulation Episode Summary Anticoagulation Care Providers Provider Role Specialty Phone number Stas Mora MD Referring Family Medicine [phone] Robyimelda Flores is a 87 year old year old male patient being evaluated today for a [facility] Anticoagulation Episode Summary Anticoagulation Care Providers Provider Role Specialty Phone number Stas Mora MD Referring Family Medicine [phone] Robyimelda Flores is a 87 year old year [...] ALLERGIES No Known Allergies 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 Paroxysmal atrial fibrillation (hcc) Anticoagulation Episode Summary Current INR goal: 2.0-3.0 Assessment: INR result of 4.8 is SUPRAtherapeutic due to: No obvious cause Plan: Current Warfarin Dosing As of 05/27/2023 Full warfarin instructions: 05/26: Hold; Otherwise 3.75 mg every Thu; 2.5 mg all other days Called and spoke to patient/caregiver Advised patient to hold 1 dose then continue current regimen Next lab INR check scheduled on 06/02 Maria Guadalupe verbalizes understanding of the plan. Patient denies need for refills. Coretta Jalloh RPh Clinical Pharmacist, Pharmacy Anticoagulation Clinic Pharmacy Anticoagulation Clinic Pager: [phone]. documented in this encounterLicking Memorial Hospital02-28-2024 Miscellaneous Notes* Telephone Encounter - Coretta Jalloh RPh - 05/20/2023 2:36 PM EST [facility] An[facility] Anticoagulation Episode Summary Anticoagulation Care Providers Provider Role Specialty Phone number Stas Mora MD Referring Family Medicine [phone] Roby Flores is a 87 year old [...] ALLERGIES No Known Allergies 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: care home current use of anticoagulant Paroxysmal atrial fibrillation (hcc) Anticoagulation Episode Summary Current INR goal: 2.0-3.0 Assessment: INR result of 2.3 is therapeutic following recent dose increase. We have been slowing titration his dose back up for some time. Plan: Current Warfarin Dosing As of 05/20/2023 Full warfarin instructions: 3.75 mg every Thu; 2.5 mg all other days Left voice message Advised patient to continue current weekly dose as noted above Next lab INR check scheduled on 05/27/2023 Coretta Jalloh RPh Clinical Pharmacist, Pharmacy Anticoagulation Clinic Pharmacy Anticoagulation Clinic Pager: [phone]. documented in this encounterLicking Memorial Hospital02-21-2024 Miscellaneous Notes* Telephone Encounter - Senia Phillips RPh - 05/13/2023 4:06 PM EST [facility] Antico[facility] Clinic Anticoagulation Episode Summary Anticoagulation Care Providers Provider Role Specialty Phone number Stas Mora MD Referring Family Medicine [phone] Roby Flores is a 87 year old [...] ALLERGIES No Known Allergies 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 Paroxysmal atrial fibrillation [...] Pharmacy Anticoagulation Clinic Pharmacy Anticoagulation Clinic Pager: [phone]. documented in this encounterLicking Memorial Hospital02-14-2024 Miscellaneous Notes* Telephone Encounter - Coretta Jalloh RPh - 05/06/2023 3:14 PM EST [facility] Antico[facility] Clinic Anticoagulation Episode Summary Anticoagulation Care Providers Provider Role Specialty Phone number Stas Mora MD Referring Family Medicine [phone] Roby Flores is a 87 year old [...] ALLERGIES No Known Allergies 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 Paroxysmal atrial fibrillation [...] Next lab INR check scheduled on 05/13/2023 LM for Maria Guadalupe. Coretta Jalloh RPh Clinical Pharmacist, Pharmacy Anticoagulation Clinic Pharmacy Anticoagulation Clinic Pager: [phone]. documented in this encounterLicking Memorial Hospital02-07-2024 Miscellaneous Notes* Telephone Encounter - Coertta Jalloh RPh - 04/29/2023 4:00 PM EST [facility] Anticoagulation Episode Summary Anticoagulation Care Providers Provider Role Specialty Phone number Stas Mora MD Referring Family Medicine [phone] Roby Flores is a 87 year old [...] ALLERGIES No Known Allergies 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: care home current use of anticoagulant Paroxysmal atrial fibrillation [...] INR check scheduled on 05/06/2023 Coretta Jalloh [facility] Clinical Pharmacist, Pharmacy Anticoagulation Clinic Pharmacy Anticoagulation Clinic Pager: [phone]. documented in this encounterLicking [facility] Hospital12-01-2023 Miscellaneous Notes* Telephone Encounter - Elise Paredes [facility] - 02/20/2023 3:37 PM EST [facility] Anticoagulation Episode Summary Anticoagulation Care Providers Provider Role Specialty Phone number Stas Mora MD Referring Family Medicine [phone] Roby Flores is a 87 year old [...] ALLERGIES No Known Allergies 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: care home current use of anticoagulant Paroxysmal atrial fibrillation [...] Pharmacy Anticoagulation Clinic Pharmacy Anticoagulation Clinic Pager: [phone]. documented in this encounterLicking Memorial Hospital11-28-2023 Miscellaneous Notes* Telephone Encounter - Franca Cohen [...] evaluation Stas Mora MD documented in this encounterLicking Memorial Hospital11-28-2023 History of Present illness Narrative* Janelle Rivera RT(Caitlyn) - 02/17/2023 7:30 AM EST Radiology Service [...] IV DATA: Not applicable SIGNED BY: RT Nancy(Caitlyn) February 17, 2023 7:43 AM documented in this encounterCleveland [id number] History of Present illness Narrative* Stas Mora MD - 02/16/2023 2:00 PM EST Chief Complaint Patient presents with: ED Follow-up HPI Roby Flores is a 87 year old male who presents here today for ER Follow Up.. Pt went to the [facility] ER on 02/10/23 with c/o fatigue, weakness, [...] Recheck in 1 week. Below copied from [employer]: Chief Complaint: Fatigue Informant: patient Onset/Context/Timing Onset: [...] any urinary complaints. Patient denies any headaches. [facility] Narrative Medical decision making narrative: Differential diagnosis [...] Coronary atherosclerosis of unspecified type of vessel, unalakleet or graft Coronary artery disease Other and [...] Completed Pneumococcal Vaccine: 65+ Completed Data reviewed [facility] ER reports 02/10/23 ASSESSMENT/PLAN: 1. Cerebral infarction, [...] Past Histories independently gathered by the clinical sales support manager and the remaining scribed note accurately describes [...] PM. Marta Palacio Ma documented in this encounterLicking Memorial Hospital11-24-2023 Miscellaneous Notes* Telephone Encounter - Elise Paredes, [facility] - 02/13/2023 3:56 PM EST [facility] Antico[facility] Clinic Anticoagulation Episode Summary Anticoagulation Care Providers Provider Role Specialty Phone number Stas Mora MD Referring Family Medicine [phone] Roby Flores is a 87 year old [...] ALLERGIES No Known Allergies 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 Paroxysmal atrial fibrillation [...] check scheduled on 02/20/2023 Elise Paredes [facility] Clinical Pharmacist, Pharmacy Anticoagulation Clinic Pharmacy Anticoagulation Clinic Pager: [phone]. documented in this encounterLicking [facility] Hospital11-17-2023 Miscellaneous Notes* Telephone Encounter - AlanSeniaEnrique - 02/06/2023 4:28 PM EST [facility] Anticoagulation Clinic Anticoagulation Episode Summary Anticoagulation Care Providers Provider Role Specialty Phone number Stas Mora MD Referring Family Medicine [phone] Roby Flores is a 87 year old [...] ALLERGIES No Known Allergies 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 Paroxysmal atrial fibrillation [...] Pharmacy Anticoagulation Clinic Pharmacy Anticoagulation Clinic Pager: [phone]. documented in this encounterLicking Memorial Hospital10-06-2023 Miscellaneous Notes* Telephone Encounter - Senia Phillips RPh - 12/26/2022 3:04 PM EDT [facility] Anticoagulation Clinic Anticoagulation Episode Summary Anticoagulation Care Providers Provider Role Specialty Phone number Stas Mora MD Referring Family Medicine [phone] Roby Flores is a 87 year old [...] ALLERGIES No Known Allergies 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: care home current use of anticoagulant Paroxysmal atrial fibrillation (hcc) Anticoagulation Episode Summary Current INR goal: 2.0-3.0 Assessment: INR result of 2.5 is therapeutic Plan: Current Warfarin Dosing As of 12/26/2022 Full warfarin instructions: 2.5 mg every day Sent [employer] message Advised patient to continue current weekly dose as noted above Next lab INR check scheduled on 01/09/2023 Senia Phillips RPh Clinical Pharmacist, Pharmacy Anticoagulation Clinic Pharmacy Anticoagulation Clinic Pager: [phone]. documented in this encounterLicking Memorial Hospital09-29-2023 Miscellaneous Notes* Telephone Encounter - Senia Phillips RPh - 12/19/2022 4:30 PM EDT [facility] Antico[facility] Clinic Anticoagulation Episode Summary Anticoagulation Care Providers Provider Role Specialty Phone number Stas Mora MD Referring Family Medicine [phone] Roby Flores is a 87 year old [...] ALLERGIES No Known Allergies 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: care home current use of anticoagulant Paroxysmal atrial fibrillation (hcc) Anticoagulation Episode Summary Current INR goal: 2.0-3.0 Assessment: INR result of 2.0 is therapeutic Plan: Current Warfarin Dosing As of 12/19/2022 Full warfarin instructions: 2.5 mg every day Sent [employer] message Advised patient to continue current weekly dose as noted above Next lab INR check scheduled on 01/02/2023 Senia Phillips RPh Clinical Pharmacist, Pharmacy Anticoagulation Clinic Pharmacy Anticoagulation Clinic Pager: [phone]. documented in this encounterLicking Memorial Hospital09-22-2023 Miscellaneous Notes* Telephone Encounter - Senia Phillips RPh - 12/12/2022 4:01 PM EDT [facility] Anticoagulation Clinic Anticoagulation Episode Summary Anticoagulation Care Providers Provider Role Specialty Phone number Stas Mora MD Referring Family Medicine [phone] Roby Flores is a 87 year old [...] ALLERGIES No Known Allergies 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: care home current use of anticoagulant Paroxysmal atrial fibrillation [...] Pharmacy Anticoagulation Clinic Pharmacy Anticoagulation Clinic Pager: [phone]. documented in this encounterLicking [facility] Hospital09-01-2023 Miscellaneous Notes* Telephone Encounter - Jeimy Duong RPh - 11/21/2022 2:38 PM EDT [facility] Anticoagulation Clinic Anticoagulation Episode Summary Anticoagulation Care Providers Provider Role Specialty Phone number Stas Mora MD Referring Family Medicine [phone] Roby Flores is a 87 year old [...] Pharmacy Anticoagulation Clinic Pharmacy Anticoagulation Clinic Pager: [phone]. documented in this encounterLicking Memorial Hospital08-28-2023 Hospital Discharge instructions Patient Education 11/17/2022 16:32:18 [...] Wound changes colors Numbness around the wound 9805-3111 [employer]. [address] [place] [address]653. All rights reserved. This information is not intended as a substitute for professional medical care. Always follow [facility] professional's instructions. 11/17/2022 16:32:14 Head Injury (Adult) [...] the ears or bruising around the eyes 0587-0101 [employer]. [address] [place] [address], [place] [address]. All rights reserved. This information is not intended as a substitute for professional medical care. Always follow yourhealthcare professional's instructions. Follow Up Care 11/17/2022 15:05:08 With:Call Physician Referral Address:Unknown When:2-4 days [facility] Samiradevin Graham 08-28-2023 Note Discharge Instructions Thank you for allowing [facility] to assist you with your healthcare needs. [...] Wound changes colors Numbness around the wound 7994-3108 [employer]. [address] [place] [address], [place] [address]. All rights reserved. This information is not [...] the ears or bruising around the eyes 4803-3939 [employer]. [address] [place] [address]. All rights reserved. This information is not intended as a substitute for professional medical care. Always follow yourhealthcare professional's instructions. Additional Information VACCINATE! IT SAVES LIVES! Members of the community who have not yet received the COVID-19 vaccine and would like to receive it can visit one of [facility] vaccine clinics. There are many vaccine clinic locations within the [facility]. For locations and available times, please visit www.[email or web address].[place].gov/. It is important to note that some COVID mobile vaccine clinics are held outdoors and may be canceled in rainy or stormy conditions. To learn more about pediatric vaccinations (ages 5-11), we invite you to visit the [facility] webpage. [email or web address]://www.[email or web address].org/pages/[email or web address]-Opnwmpwhev-[email or web address] stions.htmlTo learn more about the COVID-19 vaccine, we invite you to visit the CDC website for a list of frequently asked questions. https://www.cdc.gov/coronavirus/2019-ncov/vaccines/faq.html [facility] Greenleaf Book GroupChart Patient Portal Access Instructions: Stay connected with your healthcare team and access your personal medical information anytime with the [facility] Patient Portal. If you would like a full copy of your medical records please contact the [facility] Medical Records Department Thursday through Thursday between 8a.m. and 4:30p.m. Please follow the directions below to access the portal: 1.Access the email account you provided upon registration to the [facility].2.Look for an invitation email from [facility].3.Open the email and access the invitation link: Accept Invitation to [employer]4.Fill in the required العلي to create your account. Sign into [email or web address] with your username and password that you [...] you will allow to register on the [employer] Patient Portal for access to your information. You can also access the [employer] Patient Portal on the [email or web address]. Simply click on "Health Records" under "Forter" and then click on the [employer] logo. HOW TO SAFELY DISPOSE OF PRESCRIPTION [...] Call your local pharmacy or go to [email or web address] to find one close to you.3.Make use of household items: Use cat litter or old coffee grounds to dispose medications if other options arenot available. Mix your drugs with these household products, seal them in an airtight container andthrow it into the garbage. Call [facility]: [phone] to be sure your drugs can be [...] been reviewed and explained to me and ISANDRA CLAYTON E understand my current condition and have read and understand these discharge instructions. I have received a written copy of the plan/instructions. If I have questions, I am aware that I should contact my doctor. Patient/Product Steward Signature: Date/Time: Relationship to Patient: Witness Name/Signature: Date/Time: [facility]08-28-2023 Note ORIGINAL EXAMINATION: CT OF THE [...] Sign Date: 11/17/2022 4:26:20 PM Ordering Provider: [facility]08-18-2023 Miscellaneous Notes* Telephone Encounter - Senia Phillips [facility] - 11/07/2022 3:22 PM EDT [facility] Anticoagulation Episode Summary Anticoagulation Care Providers Provider Role Specialty Phone number Stas Mora MD Referring Family Medicine [phone] Roby Flores is a 87 year old [...] ALLERGIES No Known Allergies 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: care home current use of anticoagulant Paroxysmal atrial fibrillation (hcc) Anticoagulation Episode Summary Current INR goal: 2.0-3.0 Assessment: INR result of 2.2 is therapeutic Plan: Current Warfarin Dosing As of 11/07/2022 Full warfarin instructions: 2.5 mg every day Sent B[employer] Media message Advised patient to continue current weekly dose as noted above Next lab INR check scheduled on 11/21/2022 Senia Phillips RPh Clinical Pharmacist, Pharmacy Anticoagulation Clinic Pharmacy [facility] Pager: [phone]. documented in this encounterLicking Memorial Hospital08-11-2023 Miscellaneous Notes* Telephone Encounter - Senia Phillips RPh - 10/31/2022 2:29 PM EDT Patient due to test INR today. Will continue to monitor for results. Senia Phillips RPh documented in this encounterLicking Memorial Hospital08-04-2023 Miscellaneous Notes* Telephone Encounter - Senia Phillips RPh - 10/24/2022 3:13 PM EDT [facility] Anticoagulation Episode Summary Anticoagulation Care Providers Provider Role Specialty Phone number Stas Mora MD Referring Family Medicine [phone] Roby Flores is a 87 year old [...] ALLERGIES No Known Allergies 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 Paroxysmal atrial fibrillation (hcc) Anticoagulation Episode Summary Current INR goal: 2.0-3.0 Assessment: INR result of 2.5 is therapeutic Plan: Current Warfarin Dosing As of 10/24/2022 Full warfarin instructions: 2.5 mg every day Sent BAB[employer] Media message Advised patient to decrease total weekly regimen to better reflect overall dose given past few weeks Next lab INR check scheduled on 10/31/2022 Senia Phillips RPh Clinical Pharmacist, Pharmacy Anticoagulation Clinic Pharmacy Antico[facility] Clinic Pager: [phone]. documented in this encounterLicking Memorial Hospital07-28-2023 Miscellaneous Notes* Telephone Encounter - Jason Easton [...] Anticoagulation TE call from today by the [facility]. They spoke with pt at [phone] and gave pt instructions on what to do. Halina Castelan, RN documented in this encounterLicking Memorial Hospital07-28-2023 Miscellaneous Notes* Telephone Encounter - Yomi Wills [facility] - 10/17/2022 3:43 PM EDT [facility] Anticoagulation Episode Summary Anticoagulation Care Providers Provider Role Specialty Phone number Stas Mora MD Referring Family Medicine [phone] Roby Flores is a 87 year old [...] ALLERGIES No Known Allergies 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 Paroxysmal atrial fibrillation [...] Patient denies need for refills. Yomi Wills RPh Clinical Pharmacist, Pharmacy Anticoagulation Clinic Pharmacy Anticoagulation Clinic Pager: [phone]. documented in this encounterLicking Memorial Hospital07-07-2023 Miscellaneous Notes* Telephone Encounter - Jeimy Duong RPh - 09/26/2022 2:11 PM EDT [facility] Anticoagulation Episode Summary Anticoagulation Care Providers Provider Role Specialty Phone number Stas Mora MD Referring Family Medicine [phone] Roby Flores is a 87 year old [...] Pharmacy Anticoagulation Clinic Pharmacy Anticoagulation Clinic Pager: [phone]. documented in this encounterLicking Memorial Hospital06-23-2023 Miscellaneous Notes* Telephone Encounter - Jeimy Duong RPh - 09/12/2022 2:50 PM EDT [facility] Anticoagulation Episode Summary Anticoagulation Care Providers Provider Role Specialty Phone number Stas Mora MD Referring Family Medicine [phone] Roby Flores is a 87 year old [...] accidental over dosage, changes in warfarin tablet color/shape/tin flopper, eating less green vegetables, recent illness/fever/nausea/vomiting/diarrhea, increased edema/SOB, or ETOH consump tion. Plan: Current Warfarin Dosing As of 09/12/2022 Full warfarin instructions: 09/12: 1.25 mg; Otherwise 3.75 mg every Fri; 2.5 mg all other days Called and spoke to patient/caregiver daughter Advised patient to decrease dose for 1 day only then resume weekly regimen as noted above. Next lab INR check scheduled on 09/26/2022 Patient's caregiver verbalizes understanding of the plan. Jeimy Duong RPh Clinical Pharmacist, Pharmacy Anticoagulation Clinic Pharmacy Anticoagulation Clinic Pager: [phone]. documented in this encounterLicking Memorial Hospital06-06-2023 Instructions* Patient Instructions* Marta Palacio Hi - 08/26/2022 1:36 PM EDT Please check your medications when you get home and make sure that your medications match our list. documented in this encounterLicking Memorial Hospital06-06-2023 History of Present illness Narrative* Stas Mora MD - 08/26/2022 1:20 PM EDT Medical B eligibilty date 1999 Date of last exam 09/05/2021 PAST MEDICAL HISTORY Diagnosis Date Coronary atherosclerosis of unspecified type of vessel, [place] or graft Coronary artery disease Other and [...] 66 Resp 16 Ht 180.3 cm (5' 11") Wt 78.7 kg (173 lb 9.6 oz) [...] Past Histories independently gathered by the clinical sales support manager and the remaining scribed note accurately describes my personal service to the patient. Stas Mora MD The documentation for this note was completed by Marta Palacio Ma acting as scribe for Stas Mora MD. August 26, 2022 1:17 PM. Marta Palacio Ma documented in this encounterLicking Memorial Hospital06-02-2023 Miscellaneous Notes* Telephone Encounter - Senia Phillips [facility] - 08/22/2022 2:50 PM EDT [facility] Anticoagulation Episode Summary Anticoagulation Care Providers Provider Role Specialty Phone number Stas Mora MD Referring Family Medicine [phone] Roby Flores is a 87 year old [...] ALLERGIES No Known Allergies 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 Paroxysmal atrial fibrillation (hcc) Anticoagulation Episode Summary Current INR goal: 2.0-3.0 Assessment: INR result of 2.4 is therapeutic Plan: Current Warfarin Dosing As of 08/22/2022 Full warfarin instructions: 3.75 mg every Fri; 2.5 mg all other days Sent BABL Media message Advised patient to continue current weekly dose as noted above Next lab INR check scheduled on 08/29/2022 Senia Phillips RPh Clinical Pharmacist, Pharmacy Anticoagulation Clinic Pharmacy Anticoagulation Clinic Pager: [phone]. documented in this encounterLicking Memorial Hospital04-28-2023 Miscellaneous Notes* Telephone Encounter - Senia Phillips RPh - 07/18/2022 3:29 PM EDT [facility] Anticoagulation Episode Summary Anticoagulation Care Providers Provider Role Specialty Phone number Stas Mora MD Referring Family Medicine [phone] Roby Flores is a 86 year old [...] ALLERGIES No Known Allergies 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 Paroxysmal atrial fibrillation (hcc) Anticoagulation Episode Summary Current INR goal: 2.0-3.0 Assessment: INR result of 2.1 is therapeutic Plan: Current Warfarin Dosing As of 07/18/2022 Full warfarin instructions: 2.5 mg every day Sent BABL Media message Advised patient to continue current weekly dose as noted above Next lab INR check scheduled on 08/01/2022 Senai Phillips RPh Clinical Pharmacist, Pharmacy Anticoagulation Clinic Pharmacy Anticoagulation Clinic Pager: [phone]. documented in this encounterLicking Memorial Hospital04-14-2023 Miscellaneous Notes* Telephone Encounter - Lety Gandara [facility] - 07/04/2022 3:46 PM EDT [facility] Anticoagulation Episode Summary Anticoagulation Care Providers Provider Role Specialty Phone number Stas Mora MD Referring Family Medicine [phone] Roby Flores is a 86 year old [...] ALLERGIES No Known Allergies Indication for Warfarin: care home current use of anticoagulant Paroxysmal atrial fibrillation [...] plan. Patient denies need for refills. Lety Gandara [facility] Clinical Pharmacist, Pharmacy Anticoagulation Clinic Pharmacy Anticoagulation Clinic Pager: [phone]. documented in this encounterLicking Memorial Hospital04-03-2023 Miscellaneous Notes* Telephone Encounter - Elvis Kearney APRN.CNP - 06/23/2022 10:17 AM EDT The following approved medication requests have been transmitted electronically. Requested Prescriptions Pending Prescriptions Disp Refills warfarin (COUMADIN) 2.5 mg tablet [Pharmacy Med Name: WARFARIN SODIUM 2.5 MG TABLET] 135 tablet 3 Sig: TAKE 5 MG EVERY MON, DIXIE 2.5 MG ALL OTHER DAYS Elvis Kearney APRN.CNP documented in this encounterLicking Memorial Hospital03-31-2023 Miscellaneous Notes* Telephone Encounter - Senia Phillips RPh - 06/20/2022 4:46 PM EDT [facility] Anticoagulation Episode Summary Anticoagulation Care Providers Provider Role Specialty Phone number Stas Mora MD Referring Family Medicine [phone] Roby Flores is a 86 year old [...] ALLERGIES No Known Allergies 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 Paroxysmal atrial fibrillation (hcc) Anticoagulation Episode Summary Current INR goal: 2.0-3.0 Assessment: INR result of 2.9 is therapeutic Plan: Current Warfarin Dosing As of 06/20/2022 Full warfarin instructions: 2.5 mg every day Called and was unable to leave voice message - voicemailbox was for Maria Guadalupe, wasn't sure if ok to leave message Sent MyChart message Advised patient to continue current weekly dose as noted above Next lab INR check scheduled on 07/04/2022 Senia Phillips RPh Clinical Pharmacist, Pharmacy Anticoagulation Clinic Pharmacy Anticoagulation Clinic Pager: [phone]. documented in this encounterLicking Memorial Hospital03-17-2023 Miscellaneous Notes* Telephone Encounter - Senia Phillips RPh - 06/06/2022 4:18 PM EDT [facility] Anticoagulation Episode Summary Anticoagulation Care Providers Provider Role Specialty Phone number Stas Mora MD Referring Family Medicine [phone] Roby Flores is a 86 year old [...] ALLERGIES No Known Allergies Indication for Warfarin: care home current use of anticoagulant Paroxysmal atrial fibrillation (hcc) Anticoagulation Episode Summary Current INR goal: 2.0-3.0 Assessment: INR result of 2.6 is therapeutic Plan: Current Warfarin Dosing As of 06/06/2022 Full warfarin instructions: 2.5 mg every day Sent BABL Media message Advised patient to continue current weekly dose as noted above Next lab INR check scheduled on 06/20/2022 Senia Phillips RPh Clinical Pharmacist, Pharmacy Anticoagulation Clinic Pharmacy Anticoagulation Clinic Pager: [phone]. documented in this encounterLicking Memorial Hospital03-10-2023 Miscellaneous Notes* Telephone Encounter - Neeru Rice LPN - 05/30/2022 3:02 PM EST Pharmacists manage INR documented in this encounterLicking Memorial Hospital03-02-2023 Miscellaneous Notes* Telephone Encounter - Halina Alfaro LPN - 05/22/2022 8:51 AM EST Patient notified spouse of results, verbalizes understanding of instructions. She will tell Pt. Halina Alfaro LPN * Telephone Encounter - Jenna Fitzpatrick APRN.CNP - 05/22/2022 7:15 AM EST Can you [...] you. Jenna Fitzpatrick APRN.SHEMAR documented in this encounterLicking Memorial Hospital03-01-2023 Miscellaneous Notes* Telephone Encounter - Judy Matos [...] hip/leg 10. : na Protocols used: Hip [id number], Hip Hebicp-[id number]-DJ documented in this encounterLicking Memorial Hospital03-01-2023 Miscellaneous Notes* Telephone Encounter - Fani Grace RN - 05/21/2022 12:22 PM EST Patient disconnected during transferred, called multiple time with no answer. documented in this encounterLicking Memorial Hospital02-27-2023 Miscellaneous Notes* Telephone Encounter - Paige Hickman [...] instructions. Franca Cohen LPN documented in this encounterLicking Memorial Hospital02-24-2023 Miscellaneous Notes* Telephone Encounter - Senia Phillips RPh - 05/16/2022 5:10 PM EST Patient due to test INR today. Will continue to monitor for results. Senia Phillips RPh documented in this encounterLicking Memorial Hospital02-10-2023 Miscellaneous Notes* Telephone Encounter - Senia Phillips RPh - 05/02/2022 3:06 PM EST [facility] Anticoagulation Episode Summary Anticoagulation Care Providers Provider Role Specialty Phone number Stas Mora MD Referring Family Medicine [phone] Roby Flores is a 86 year old year old male patient being evaluated today for a Telemanagement visit. Patient is currently on the following anticoagulant(s) Warfarin. Labs PT INR (no units) Date Value 05/15/2021 2.3 04/17/2021 1.9 03/13/2021 Test sent to [facility]. INR (no units) Date Value 05/02/2022 2.1 [...] ALLERGIES No Known Allergies 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 Paroxysmal atrial fibrillation (hcc) Anticoagulation Episode Summary Current INR goal: 2.0-3.0 Assessment: INR result of 2.1 is therapeutic Plan: Current Warfarin Dosing As of 05/02/2022 Full warfarin instructions: 2.5 mg every day Sent BABL Media message Advised patient to continue current weekly dose as noted above Next lab INR check scheduled on 05/16/2022 Senia Phillips RPh Clinical Pharmacist, Pharmacy Anticoagulation Clinic Pharmacy Anticoagulation Clinic Pager: [phone]. documented in this encounterLicking Memorial Hospital01-27-2023 Miscellaneous Notes* Telephone Encounter - Senia Phillips RPh - 04/18/2022 4:25 PM EST [facility] Anticoagulation Episode Summary Anticoagulation Care Providers Provider Role Specialty Phone number Stas Mora MD Referring Family Medicine [phone] Roby Flores is a 86 year old year old male patient being evaluated today for a Telemanagement visit. Patient is currently on the following anticoagulant(s) Warfarin. Labs PT INR (no units) Date Value 05/15/2021 2.3 04/17/2021 1.9 03/13/2021 Test sent to [facility]. INR (no units) Date Value 04/18/2022 2.4 [...] ALLERGIES No Known Allergies Indication for Warfarin: care home current use of anticoagulant Paroxysmal atrial fibrillation (hcc) Anticoagulation Episode Summary Current INR goal: 2.0-3.0 Assessment: INR result of 2.4 is therapeutic Plan: Current Warfarin Dosing As of 04/18/2022 Full warfarin instructions: 2.5 mg every day; Starting 04/18/2022 Sent BABL Media message Advised patient to continue current weekly dose as noted above Next lab INR check scheduled on 05/02/2022 Senia Phillips RPh Clinical Pharmacist, Pharmacy Anticoagulation Clinic Pharmacy Anticoagulation Clinic Pager: [phone]. documented in this encounterLicking Memorial Hospital01-13-2023 Miscellaneous Notes* Telephone Encounter - Elise Paredes RPh - 04/04/2022 4:09 PM EST [facility] Anticoagulation Episode Summary Anticoagulation Care Providers Provider Role Specialty Phone number Stas Mora MD Referring Family Medicine [phone] Roby Flores is a 86 year old year old male patient being evaluated today for a Lab INR. Patient is currently on the following anticoagulant(s) Warfarin. Labs PT INR (no units) Date Value 05/15/2021 2.3 04/17/2021 1.9 03/13/2021 Test sent to [facility]. INR (no units) Date Value 04/04/2022 3.3 [...] ALLERGIES No Known Allergies Indication for Warfarin: care home current use of anticoagulant Paroxysmal atrial fibrillation [...] labs every 2 weeks Elise Paredes [facility] Clinical Pharmacist, Pharmacy Anticoagulation Clinic Pharmacy Anticoagulation Clinic Pager: [phone]. documented in this encounterLicking Memorial Hospital01-09-2023 Miscellaneous Notes* Telephone Encounter - Rosie Cruz Ma - 03/31/2022 5:12 PM EST Office received continuity of care paperwork from the [place] requesting pt's last OV, labs and Imm. PerPCP okay to fax back requested records. Faxed back to [facility] at F#: [phone]. Rosie Cruz Ma documented in this encounterLicking Memorial Hospital12-30-2022 Miscellaneous Notes* Telephone Encounter - Carmelina Cruz RPh - 03/21/2022 4:05 PM EST [facility] Anticoagulation Episode Summary Anticoagulation Care Providers Provider Role Specialty Phone number Stas Mora MD Referring Family Medicine [phone] Roby Flores is a 86 year old year old male patient being evaluated today for a Telemanagement visit. Patient is currently on the following anticoagulant(s) Warfarin. Labs PT INR (no units) Date Value 05/15/2021 2.3 04/17/2021 1.9 03/13/2021 Test sent to [facility]. 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 * Telephone Encounter - Carmelina Cruz RPh - 03/21/2022 3:12 PM EST Patient due to test INR today. Will continue to monitor for results. Carmelina Cruz RPh documented in this encounterLicking Memorial Hospital12-02-2022 Miscellaneous Notes* Telephone Encounter - Oliva Westbrook [...] whatever he wanted to. documented in this encounterLicking Memorial Hospital10-31-2022 Miscellaneous Notes* Telephone Encounter - Paige Hickman RPh - 01/20/2022 3:55 PM EDT [facility] Anticoagulation Episode Summary Anticoagulation Care Providers Provider Role Specialty Phone number Stas Mora MD Referring Family Medicine [phone] Roby Flores is a 86 year old year old male patient being evaluated today for a Telemanagement visit. Patient is currently on the following anticoagulant(s) Warfarin. Labs PT INR (no units) Date Value 05/15/2021 2.3 04/17/2021 1.9 03/13/2021 Test sent to [facility]. INR (no units) Date Value 01/20/2022 1.7 [...] instructed to call [facility] at [phone] with any questionsor concerns. Paige Hickman RP Clinical Pharmacist, Pharmacy Anticoagulation Clinic Pharmacy Anticoagulation Clinic Pager: [phone] documented in this encounterLicking Memorial Hospital10-28-2022 Miscellaneous Notes* Telephone Encounter - Senia Phillips [...] the providers message. Sent information as a [employer] message as well. Elana Valdes RN * [...] to contact patient with no answer at [phone]. Current dose of coumadin is: 2.5 mg every day . Previous INR (date and result): 01/03/22 2.4 documented in this encounterLicking Memorial Hospital10-24-2022 Miscellaneous Notes* Telephone Encounter - Jenna Fitzpatrick [...] advise. López Mckenna LPN documented in this encounterLicking Memorial Hospital10-14-2022 Miscellaneous Notes* Telephone Encounter - Senia Phillips [facility] - 01/03/2022 4:11 PM EDT [facility] Anticoagulation Episode Summary Anticoagulation Care Providers Provider Role Specialty Phone number Stas Mora MD Referring Family Medicine [phone] Roby Flores is a 86 year old year old male patient being evaluated today for a Telemanagement visit. Patient is currently on the following anticoagulant(s) Warfarin. Labs PT INR (no units) Date Value 05/15/2021 2.3 04/17/2021 1.9 03/13/2021 Test sent to [facility]. INR (no units) Date Value 01/03/2022 2.4 [...] ALLERGIES No Known Allergies Indication for Warfarin: care home current use of anticoagulant Paroxysmal atrial fibrillation (hcc) Anticoagulation Episode Summary Current INR goal: 2.0-3.0 Assessment: INR result of 2.4 is therapeutic Plan: Current Warfarin Dosing As of 01/03/2022 Full warfarin instructions: 2.5 mg every day Sent BABL Media message Advised patient to continue current weekly dose as noted above Next lab INR check scheduled on 01/17/2022 Senia Phillips RPh Clinical Pharmacist, Pharmacy Anticoagulation Clinic Pharmacy Anticoagulation Clinic Pager: [phone]. documented in this encounterLicking Memorial Hospital10-14-2022 Miscellaneous Notes* Telephone Encounter - Marta Palacio Ma - 01/03/2022 10:49 AM EDT Pt notified of results via [email or web address]. Marta Palacio Ma * Telephone Encounter - Stas Mora MD - 01/02/2022 6:07 PM EDT Please notify patient that his thyroid ultrasound looks OK, the nodules are all small, appear normal, and do not need any further evaluation pr follow up. Stas Mora MD documented in this encounterLicking Memorial Hospital10-06-2022 History of Present illness Narrative* Stas Mora MD - 12/26/2021 11:20 AM EDT Chief Complaint Patient presents with: [facility] F/U [facility] Roby Flores is a 86 year [...] about 1-2 hours. Pt was admitted to [facility] ER 12/21/21 with stroke sx however sx [...] in the last year. Below copied from [facility] [employer]: HPI History of Present Illness Chief Complaint: [...] realized that he was in the backyard [facility] when she went to check on him [...] extremities. 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 Dorsi and plantar flexion intact. [...] Chronic anticoagulation: Status: Acute Code(s): Z79.01 - care home (current) 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 Medications at Discharge [...] symptoms resolved. Hospital Course: 1. TIA/paroxysmal A. [id number] male presented with right-sided weakness and aphasia, [...] Coronary atherosclerosis of unspecified type of vessel, unalakleet or graft Coronary artery disease Other and [...] 12/06/2024 ADVANCE DIRECTIVE DISCUSSION Completed Data reviewed [facility] reports from 10/21/21-10/22/21 ASSESSMENT/PLAN: 1. Hospital discharge [...] unspecified vessel or lesion type, unspecified whether unalak[place]et or transplanted heart - ICD9: 414.00, ICD10: I25.10 Continue current medications. Follow up in Dec as scheduled with fasting labs prior. I agree with the Chief Complaint, ROS, and Past Histories independently gathered by the clinical sales support manager and the remaining scribed note accurately describes my personal service to the patient. Medical Decision Making: Problems: Moderate: New problem with uncertain prognosis Data: Unique test result(s) reviewed: 3+ Unique test(s) ordered: 3+ Risk: Moderate: Drug management Medical Decision Making Level: 4 - Moderate Stas Mora MD The documentation for this note was completed by Marat Palacio Ma acting as scribe for Stas Mora MD. December 26, 2021 11:26 AM. Marta Palacio Ma documented in this encounterLicking [facility] Hospital09-30-2022 Miscellaneous Notes* Telephone Encounter - Senia Phillips Former[facility] - 12/20/2021 4:39 PM EDT [facility] Anticoagulation Episode Summary Anticoagulation Care Providers Provider Role Specialty Phone number Stas Mora MD Referring Family Medicine [phone] Roby Flores is a 86 year old year old male patient being evaluated today for a Telemanagement visit. Patient is currently on the following anticoagulant(s) Warfarin. Labs PT INR (no units) Date Value 05/15/2021 2.3 04/17/2021 1.9 03/13/2021 Test sent to [facility]. INR (no units) Date Value 12/20/2021 2.1 [...] ALLERGIES No Known Allergies Indication for Warfarin: care home current use of anticoagulant Paroxysmal atrial fibrillation (hcc) Anticoagulation Episode Summary Current INR goal: 2.0-3.0 Assessment: INR result of 2.1 is therapeutic Plan: Current Warfarin Dosing As of 12/20/2021 Full warfarin instructions: 2.5 mg every day Sent BABL Media message Advised patient to continue current weekly dose as noted above Next lab INR check scheduled on 01/03/2022 Senia Phillips RPh Clinical Pharmacist, Pharmacy Anticoagulation Clinic Pharmacy Anticoagulation Clinic Pager: [phone]. documented in this encounterLicking Memorial Hospital09-16-2022 Miscellaneous Notes* Telephone Encounter - Senia Phillips RPh - 12/06/2021 4:29 PM EDT [facility] Anticoagulation Episode Summary Anticoagulation Care Providers Provider Role Specialty Phone number Stas Mora MD Referring [facility] [phone] Roby Flores is a 86 year old year old male patient being evaluated today for a Telemanagement visit. Patient is currently on the following anticoagulant(s) Warfarin. Labs PT INR (no units) Date Value 05/15/2021 2.3 04/17/2021 1.9 03/13/2021 Test sent to [facility]. INR (no units) Date Value 12/06/2021 3.8 [...] ALLERGIES No Known Allergies Indication for Warfarin: care home current use of anticoagulant Paroxysmal atrial fibrillation [...] Pharmacy Anticoagulation Clinic Pharmacy Anticoagulation Clinic Pager: [phone]. documented in this encounterLicking Memorial Hospital09-02-2022 Miscellaneous Notes* Telephone Encounter - Janice Huang RPh - 11/22/2021 5:17 PM EDT [facility] Anticoagulation Episode Summary Anticoagulation Care Providers Provider Role Specialty Phone number Stas Mora MD Referring [facility] [phone] Roby Flores is a 86 year old year old male patient being evaluated today for a Telemanagement visit. Patient is currently on the following anticoagulant(s) Warfarin. Labs PT INR (no units) Date Value 05/15/2021 2.3 04/17/2021 1.9 03/13/2021 Test sent to [facility]. INR (no units) Date Value 11/22/2021 2.4 [...] ALLERGIES No Known Allergies Indication for Warfarin: care home current use of anticoagulant Paroxysmal atrial fibrillation [...] Advised pt to Call Coumadin Clinic at [phone] to confirm dosing and follow-up Janice Huang RP Clinical Pharmacist, Pharmacy Anticoagulation Clinic Pharmacy Anticoagulation Clinic Pager: [phone]. documented in this encounterLicking Memorial Hospital08-19-2022 Miscellaneous Notes* Telephone Encounter - Senia Phillips RPh - 11/08/2021 5:01 PM EDT [facility] Anticoagulation Episode Summary Anticoagulation Care Providers Provider Role Specialty Phone number Stas Mora MD Referring [facility] [phone] Roby Flores is a 86 year old year old male patient being evaluated today for a Telemanagement visit. Patient is currently on the following anticoagulant(s) Warfarin. Labs PT INR (no units) Date Value 05/15/2021 2.3 04/17/2021 1.9 03/13/2021 Test sent to [facility]. 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 documented in this encounterLicking Memorial Hospital08-05-2022 Miscellaneous Notes* Telephone Encounter - Janice Huang RPh - 10/25/2021 4:16 PM EDT [facility] Anticoagulation Episode Summary Anticoagulation Care Providers Provider Role Specialty Phone number Stas Mora MD Referring [facility] [phone] Roby Flores is a 86 year old year old male patient being evaluated today for a Telemanagement visit. Patient is currently on the following anticoagulant(s) Warfarin. Labs PT INR (no units) Date Value 05/15/2021 2.3 04/17/2021 1.9 03/13/2021 Test sent to [facility]. INR (no units) Date Value 10/25/2021 4.1 [...] ALLERGIES No Known Allergies 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 Paroxysmal atrial fibrillation [...] Pharmacy Anticoagulation Clinic Pharmacy Anticoagulation Clinic Pager: [phone] . documented in this encounterLicking Memorial Hospital07-08-2022 Miscellaneous Notes* Telephone Encounter - Elana Campbell (Art Teacher) - 09/27/2021 4:50 PM EDT PATIENT CALL Patient called call center regarding results. Patient called and stated he had his INR checked today (09/27) and it was 2.3. Patient can be called at [phone] with any questions or sent MC message if result is within range. PT INR (no units) Date Value 05/15/2021 2.3 04/17/2021 1.9 03/13/2021 Test sent to [facility]. INR (no units) Date Value 09/27/2021 2.3 09/13/2021 2.7 08/30/2021 2.1 Elana Campbell (Art Teacher) * Telephone Encounter - Yomi Wills RP - 09/27/2021 6:28 AM EDT Patient due to test INR today. Will continue to monitor for results. Yomi Wills [facility] documented in this encounterLicking Memorial Hospital06-24-2022 Miscellaneous Notes* Telephone Encounter - Senia Phillips [facility] - 09/13/2021 4:11 PM EDT [facility] Anticoagulation Episode Summary Anticoagulation Care Providers Provider Role Specialty Phone number Stas Mora MD Referring [facility] [phone] Roby Flores is a 86 year old year old male patient being evaluated today for a Telemanagement visit. Patient is currently on the following anticoagulant(s) Warfarin. Labs PT INR (no units) Date Value 05/15/2021 2.3 04/17/2021 1.9 03/13/2021 Test sent to [facility]. INR (no units) Date Value 09/13/2021 2.7 [...] ALLERGIES No Known Allergies Indication for Warfarin: care home current use of anticoagulant Paroxysmal atrial fibrillation (hcc) Anticoagulation Episode Summary Current INR goal: 2.0-3.0 Assessment: INR result of 2.7 is therapeutic Plan: Sent BABL Media message Advised patient to continue current weekly dose Next lab INR check scheduled on 09/27/2021 Senia Phillips RPh Clinical Pharmacist, Pharmacy Anticoagulation Clinic Pharmacy Anticoagulation Clinic Pager: [phone] . documented in this encounterLicking Memorial Hospital06-16-2022 History of Present illness Narrative* Stas Mora MD - 09/05/2021 11:20 AM EDT Medical B eligibilty date 1999 Date of last exam 08/28/2020 PAST MEDICAL HISTORY Diagnosis Date Coronary atherosclerosis of unspecified type of vessel, unalakleet or graft Coronary artery disease Other and [...] [facility] every [facility]. [facility]. Pt denies any other Specialist. End of Live Planning discussed including patients advanced directive wishes: Yes has both. Daughteris his POA. I am willing to follow [place] advanced directives. Depression screen He in the [...] to remember the following three words: Banana, Globe and Chair Visuospatial/Executive Functioning: Clock drawin/2 (Normal [...] Past Histories independently gathered by the clinical sales support manager and the remaining scribed note accurately describes my personal service to the patient. Stas Mora MD The documentation for this note was completed by Rosie Cruz Ma acting as scribe for Stas Mora MD. September 05, 2021 11:33 AM. Rosie Cruz Ma documented in this encounterLicking Memorial Hospital06-10-2022 Miscellaneous Notes* Telephone Encounter - Senia Phillips [facility] - 08/30/2021 5:10 PM EDT [facility] Anticoagulation Episode Summary Anticoagulation Care Providers Provider Role Specialty Phone number Stas Mora MD Referring [facility] [phone] Roby Flores is a 86 year old year old male patient being evaluated today for a Telemanagement visit. Patient is currently on the following anticoagulant(s) Warfarin. Labs PT INR (no units) Date Value 05/15/2021 2.3 04/17/2021 1.9 03/13/2021 Test sent to [facility]. INR (no units) Date Value 08/30/2021 2.1 [...] ALLERGIES No Known Allergies 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 Paroxysmal atrial fibrillation (hcc) Anticoagulation Episode Summary Current INR goal: 2.0-3.0 Assessment: INR result of 2.1 is therapeutic Plan: Sent BABL Media message Advised patient to continue current weekly dose Next lab INR check scheduled on 09/13/2021 Senia Phillips RPh Clinical Pharmacist, Pharmacy Anticoagulation Clinic Pharmacy Anticoagulation Clinic Pager: [phone] . documented in this encounterLicking Memorial Hospital06-10-2022 Miscellaneous Notes* Telephone Encounter - Jenna Fitzpatrick APRN.CNP - 08/30/2021 8:56 AM EDT Needs order for PT/INR, order signed. Jenna Fitzpatrick APRN.CNP documented in this encounterLicking Memorial Hospital05-27-2022 Miscellaneous Notes* Telephone Encounter - Rosie Cruz Ma - 08/16/2021 2:18 PM EDT INR has been reviewed in another encounter. Rosie Cruz Ma documented in this encounterLicking Memorial Hospital05-13-2022 Miscellaneous Notes* Telephone Encounter - Senia Phillips RPh - 08/02/2021 4:11 PM EDT [facility] Anticoagulation Episode Summary Anticoagulation Care Providers Provider Role Specialty Phone number Stas Mora MD Referring [facility] [phone] Roby Flores is a 85 year old year old male patient being evaluated today for a Telemanagement visit. Patient is currently on the following anticoagulant(s) Warfarin. Labs PT INR (no units) Date Value 05/15/2021 2.3 04/17/2021 1.9 03/13/2021 Test sent to [facility]. INR (no units) Date Value 08/02/2021 3.2 [...] ALLERGIES No Known Allergies Indication for Warfarin: care home current use of anticoagulant Paroxysmal atrial fibrillation [...] Pharmacy Anticoagulation Clinic Pharmacy Anticoagulation Clinic Pager: [phone] . documented in this encounterLicking Memorial Hospital04-27-2022 Miscellaneous Notes* Telephone Encounter - Rosie Cruz [...] months Stas Mora MD documented in this encounterLicking Memorial Hospital04-25-2022 Miscellaneous Notes* Telephone Encounter - Elvis Kearney APRN.CNP - 07/15/2021 12:39 PM EDT The following approved medication requests have been transmitted electronically. Pending Prescriptions Disp Refills WARFARIN 2.5 MG TABLET 135 tablet 3 Sig: TAKE 5 MG EVERY MON, DIXIE 2.5 MG ALL OTHER DAYS MESFIN: No Elvis Kearney APRN.CNP documented in this encounterLicking Memorial Hospital04-18-2022 History of Present illness Narrative* Stas Mora [...] SOB. No swelling in feet orankles. No finance manager. Taking Fosinopril 10 mg daily. Lipid: Taking [...] Coronary atherosclerosis of unspecified type of vessel, unalakleet or graft Coronary artery disease Other and [...] unspecified vessel or lesion type, unspecified whether unal[place] or transplanted heart - ICD9: 414.00, ICD10: [...] Past Histories independently gathered by the clinical sales support manager and the remaining scribed note accurately describes [...] AM. Marta Palacio Ma documented in this encounterLicking Memorial Hospital04-13-2022 Miscellaneous Notes* Telephone Encounter - Coretta Jalloh [facility] - 07/03/2021 3:40 PM EDT [facility] Anticoagulation Episode Summary Anticoagulation Care Providers Provider Role Specialty Phone number Stas Mora MD Referring Family Practice [phone] Roby Flores is a 85 year old year old male patient being evaluated today for a Lab INR. Patient is currently on the following anticoagulant(s) Warfarin. Labs PT INR (no units) Date Value 05/15/2021 2.3 04/17/2021 1.9 03/13/2021 Test sent to [facility]. INR (no units) Date Value 07/03/2021 4.5 06/12/2021 3.5 Creatinine (mg/dL) Date Value 03/13/2021 0.80 08/28/2020 0.83 Bilirubin, Total (mg/dL) Date Value 03/13/2021 0.5 ALT (U/L) Date Value 03/13/2021 24 AST (U/L) Date Value 03/13/2021 24 CrCl cannot be calculated (Unknown ideal weight.). ALLERGIES No Known Allergies Indication for Warfarin: care home current use of anticoagulant Paroxysmal atrial fibrillation [...] Pharmacy Anticoagulation Clinic Pharmacy Anticoagulation Clinic Pager: [phone] . * Telephone Encounter - Marta Palacio Ma - 07/03/2021 3:05 PM EDT INR 4.5. Results routed to pharmacist who Handles pt coumadin. Marta Palacio Ma documented in this encounterLicking Memorial Hospital03-23-2022 Miscellaneous Notes* Telephone Encounter - Coretta Jalloh RPh - 06/12/2021 3:20 PM EDT [facility] Anticoagulation Episode Summary Anticoagulation Care Providers Provider Role Specialty Phone number Stas Mora MD Referring [facility] [phone] Roby Flores is a 85 year old year old male patient being evaluated today for a Lab INR. Patient is currently on the following anticoagulant(s) Warfarin. Labs PT INR (no units) Date Value 05/15/2021 2.3 04/17/2021 1.9 03/13/2021 Test sent to [facility]. INR (no units) Date Value 06/12/2021 3.5 Creatinine (mg/dL) Date Value 03/13/2021 0.80 08/28/2020 0.83 Bilirubin, Total (mg/dL) Date Value 03/13/2021 0.5 ALT (U/L) Date Value 03/13/2021 24 AST (U/L) Date Value 03/13/2021 24 CrCl cannot be calculated (Unknown ideal weight.). ALLERGIES No Known Allergies 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 Paroxysmal atrial fibrillation (hcc) Anticoagulation Episode Summary Current INR goal: 2.0-3.0 Assessment: INR result of 3.5 is SUPRAtherapeutic due to: No obvious cause Plan: Called and spoke to patient/caregiver Advised patient to hold 1 dose then continue current regimen Next lab INR check scheduled on 07/03 in [place]. Patient verbalizes understanding of the plan. Patient denies need for refills. Coretta Jalloh RPh Clinical Pharmacist, Pharmacy Anticoagulation Clinic Pharmacy Anticoagulation Clinic Pager: [phone] . * Telephone Encounter - Rosie Cruz Ma - 06/12/2021 3:08 PM EDT Pt's INR results have finalized. Routing to pharm to review and advise. Rosie Cruz Ma documented in this encounterLicking Memorial Hospital12-21-2020 History of Present illness Narrative* Hussein George [...] 12, 2020 5:01 PM documented in this encounterLicking Memorial HospitalDischar summary Author Inderjit Gillespie [facility] Note Date/Time September 01, 2024 10:2 5am [facility] Medical Records Department [address] [place] [address] Emergency Department Summary 09/01/24 MR#: [id number] Acct: [id number] Name: ROBY FLORES Rep #:[id number] : [...] Prior similar symptoms: No Recent [facility] Medical History Chronic anticoagulation TIA (transient ischemic attack) Anticoagulant long-term use CAD (coronary artery disease) Home Medications ?Medication ?Instructions ?Recorded ?Last Taken ?Type warfarin 2.5 mg tablet 2.5 mg PO DAILY blood thinne r 10/06/17 10/06/17 History atorvastatin 40 mg tablet 40 mg PO QHS #30 tabs Unknown Rx lisinopril 10 mg tablet 10 mg PO DAILY #30 tabs 05/14 Unknown Rx memantine 10 mg tablet [...] shoulders elbows and wrist. 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 Neurologically he is awake alert. Answering [...] 87.5 H Lymph % (Auto) 4.8 L [place] % (Auto) 5.7 Eos % (Auto) 1.2 [...] Clarity Clear Urine pH 8.0 Ur Specific [place] 1.010 Urine Protein 15 H Urine Glucose [...] No fracture or dislocation present. Reading Location: [facility] 09/01/24 09:05 IMPRESSION: Cerebral atrophy. Mucosal thickening of the ethmoid sinuses as well as opacification of the left maxillary sinus. Reading Location: [facility] Chest X-Ray 09/01/24 09:25 IMPRESSION: No acute abnormality is seen. [facility], 2 views, AP and lateral, [...] to thrive Disposition Disposition: Acute Care Hospital [facility] What to do if you have Problems For any increased pain, shortness of breath, bleeding, nausea or vomiting, chestpain, or any unexpected problems, contact your Primary Care Provider. Call [facility] ([phone]) or report to the closest Emergency Room. Call 911 if necessary. 09/01/24 1025 <Electronically signed by Inderjit Gillespie MD> Cosigner Signature (if applicable): CC: Dr. 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- Primary Long-term (current) 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 Paroxysmal atrial fibrillation (HCC) Atrial fibrillation documented in this encounter [facility]* Diagnosis Essential hypertension, benign- Primary Atherosclerosis 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, unspecified vessel or lesion type, unspecified whether [place] or transplanted heart Paroxysmal atrial fibrillation (HCC) Atrial fibrillation Primary osteoarthritis of both knees Primary localized osteoarthrosis, lower leg documented in this encounter [facility]* Diagnosis Atherosclerosis 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, unspecified vessel or lesion type, unspecified whether un[place] or transplanted heart- Primary Essential hypertension, benign documented in this encounter [facility]* Diagnosis care home current use of anticoagulant- Primary Long-term (current) 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 Paroxysmal atrial fibrillation (HCC) Atrial fibrillation documented in this encounter [facility]* Diagnosis Elevated INR- Primary Abnormal coagulation profile [facility] Diagnosis care home current use of anticoagulant- Primary Long-term (current) 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 Paroxysmal atrial fibrillation (HCC) Atrial fibrillation [facility]* Diagnosis Encounter for Medicare annual wellness exam- Primary Routine general medical examination at a [facility] care facility Paroxysmal atrial fibrillation (HCC) Atrial fibrillation Essential hypertension, benign [facility]* Diagnosis care home current use of anticoagulant- Primary Long-term (current) 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 Encounter for monitoring Coumadin therapy Encounter for therapeutic drug monitoring documented in this encounter [facility]* Diagnosis care home current use of anticoagulant- Primary Long-term (current) 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 Paroxysmal atrial fibrillation (HCC) Atrial fibrillation [facility] Diagnosis care home current use of anticoagulant- Primary Long-term (current) 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 Paroxysmal atrial fibrillation (HCC) Atrial fibrillation documented in this encounter [facility]* Diagnosis Onset Date Resolution Status Chronic anticoagulation acut e TIA (transient ischemic attack) acute CAD (coronary artery disease) [facility] Work Phone: Evaluation note* Diagnosis Onset Date Resolution Status Chronic anticoagulation acut e Stroke-like symptoms acute TIA (transient ischemic attack) acute CAD (coronary artery disease) [facility] Work Phone: Evaluation note* Diagnosis Hospital discharge follow-up- Primary Other follow-up examination Encounter for immunization Need for other specified prophylactic vaccination against single bacterial disease TIA (transient ischemic attack) Unspecified transient cerebral ischemia Thyroid nodule Nontoxic uninodular goiter Essential hypertension, benign Paroxysmal atrial fibrillation (HCC) Atrial fibrillation Atherosclerosis 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, unspecified vessel or lesion type, unspecified whether [place] or transplanted heart documented in this encounter [facility]* Diagnosis care home current use of anticoagulant- Primary Long-term (current) 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 Paroxysmal atrial fibrillation (HCC) Atrial fibrillation [facility] Diagnosis care home current use of anticoagulant- Primary Long-term (current) 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 Paroxysmal atrial fibrillation (HCC) Atrial fibrillation documented in this encounter [facility]* Diagnosis care home current use of anticoagulant- Primary Long-term (current) 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 Paroxysmal atrial fibrillation (HCC) Atrial fibrillation [facility]* Diagnosis Encounter for Medicare annual wellness exam- Primary Routine general medical examination at a [facility] facility Paroxysmal atrial fibrillation (HCC) Atrial fibrillation Essential hypertension, benign Hyperlipidemia, unspecified hyperlipidemia type [facility]* Diagnosis 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- Primary Long-term (current) 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 Paroxysmal atrial fibrillation (HCC) Atrial [facility] Diagnosis care home current use of anticoagulant- Primary Long-term (current) 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 Paroxysmal atrial fibrillation (HCC) Atrial fibrillation [facility]* Diagnosis care home current use of anticoagulant- Primary Long-term (current) 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 Paroxysmal atrial fibrillation (HCC) Atrial fibrillation [facility]* Diagnosis care home current use of anticoagulant- Primary Long-term (current) 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 Paroxysmal atrial fibrillation (HCC) Atrial fibrillation [facility] noteNo assessment information availableWSelect [facility] Work Phone: Evaluation note* Diagnosis care home current use of anticoagulant- Primary Long-term (current) 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 Paroxysmal atrial fibrillation (HCC) Atrial fibrillation [facility]* Diagnosis Cerebral infarction, unspecified mechanism (HCC)- Primary Generalized weakness Other malaise and fatigue Speech disturbance, unspecified type Hyperlipidemia, unspecified hyperlipidemia type Essential hypertension, benign Paroxysmal atrial fibrillation (HCC) Atrial fibrillation [facility]* Diagnosis Cerebral infarction, unspecified mechanism (HCC) [facility]* Diagnosis care home current use of anticoagulant- Primary Long-term (current) 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 Paroxysmal atrial fibrillation (HCC) Atrial fibrillation [facility]* Diagnosis Essential hypertension, benign- Primary Paroxysmal atrial fibrillation (HCC) Atrial fibrillation Atherosclerosis 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, unspecified vessel or lesion type, unspecified whether [place] or transplanted heart Hyperlipidemia, unspecified hyperlipidemia type History of stroke with 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 Speech disturbance, unspecified type [facility]* Diagnosis Abnormal CBC- Primary Other abnormal [facility] current use of anticoagulant- Primary Long-term (current) 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 Paroxysmal atrial fibrillation (HCC) [facility]rial [facility] current use of anticoagulant- Primary Long-term (current) 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 Paroxysmal atrial fibrillation (HCC) [facility]rial [facility] Diagnosis care home current use of anticoagulant- Primary Long-term (current) 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 Paroxysmal atrial fibrillation (HCC) Atrial [facility] Diagnosis care home current use of anticoagulant- Primary Long-term (current) 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 Paroxysmal atrial fibrillation (HCC) Atrial [facility] Diagnosis 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, psychotic disturbance, mood disturbance, or anxiety (HCC)- Primary Essential hypertension, benign Paroxysmal atrial fibrillation (HCC) [facility]rial [facility] Diagnosis Edema of both lower legs- Primary [facility] Diagnosis 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- Primary Long-term (current) 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 Paroxysmal atrial fibrillation (HCC) Atrial fibrillation [facility] Diagnosis care home current use of anticoagulant Long-term (current) 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 Paroxysmal atrial fibrillation (HCC) Atrial [facility] Diagnosis Essential hypertension, benign- Primary Hyperlipidemia, unspecified hyperlipidemia type Edema of both lower legs Paroxysmal atrial fibrillation (HCC) Atrial fibrillation History of stroke with 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, psychotic disturbance, mood disturbance, or anxiety (HCC) Urinary frequency Abnormal CBC Other abnormal blood chemistry [facility] 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- Primary Long-term (current) 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 Paroxysmal atrial fibrillation (HCC) Atrial [facility] 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- Primary Long-term (current) 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 Paroxysmal atrial fibrillation (HCC) Atrial [facility] Diagnosis Left hip pain Pain in joint, pelvic region and thigh [facility] current use of anticoagulant- Primary Long-term (current) 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 Paroxysmal atrial fibrillation (HCC) [facility]rial [facility] Diagnosis Acute right-sided low back pain, unspecified whether sciatica present [facility] Diagnosis Paroxysmal atrial fibrillation (HCC)- Primary Atrial fibrillation [facility] Diagnosis care home current use of anticoagulant- Primary Long-term (current) 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 Paroxysmal atrial fibrillation (HCC) Atrial fibrillation [facility] Diagnosis care home current use of anticoagulant- Primary Long-term (current) 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 Paroxysmal atrial fibrillation (HCC) Atrial fibrillation [facility] Diagnosis Dementia, unspecified dementia severity, unspecified dementia type, unspecified whether behavioral, psychotic, or mood disturbance or anxiety (HCC)- Primary [facility] Diagnosis 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- Primary Long-term (current) 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 Paroxysmal atrial fibrillation (HCC) Atrial fibrillation [facility]* Diagnosis Dementia, unspecified dementia severity, unspecified [...] and musculoskeletal systems [facility]* Diagnosis Cognitive impairment, mild, so stated Mild cognitive impairment, so stated [facility]* Diagnosis Essential hypertension, benign- Primary Hyperlipidemia, unspecified hyperlipidemia type Atherosclerosis 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, unspecified vessel or lesion type, unspecified whether [place] or transplanted heart Paroxysmal atrial fibrillation (HCC) Atrial fibrillation Edema of both lower legs History of stroke with 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 Dementia, unspecified dementia severity, unspecified dementia type, unspecified whether behavioral, psychotic, or mood disturbance or anxiety (HCC) [facility]* 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) Paralysis agitans [facility] Diagnosis Bursitis of right elbow, unspecified bursa- Primary [facility]* Diagnosis Moderate dementia without behavioral disturbance, psychotic disturbance, mood disturbance, or anxiety, unspecified dementia type (HCC)- Primary Hallucinations Screening for depression Encounter for screening examination for other mental health and behavioral disorders documented in this encounter [facility] for referral (narrative)* Diagnostic Procedure Only (Routine) - Authorized Specialty Diagnoses / Procedures Referred By Kashac t Referred To Contact US IMAGING Diagnoses Thyroid nodule Procedures US THYROID/PARATHYROID US SOFT TISSUE HEAD & NECK REAL TIME IMGE Stas Queen MD [address] [place] [address] Us Imaging Referral ID Status Reason Start Date Expiration Date Visits Requested Visits Authorized [id number] Authorized Auto-Generat ed Referral 12/26/2021 01/25/2023 1 1 [facility] for referral (narrative)* Diagnostic Procedure Only (Urgent) - Closed Specialty Diagnoses / Procedures Referred By Kashac t Referred To Contact XR IMAGING Diagnoses Left hip pain Procedures XR HIP GENERAL 3V PELV/AP/LAT LEFT RADEX HIP UNILATERAL WITH PELVIS 2-3 VIEWS Jenna Fitzpatrick APRN.[employer] [address] [place] [address] [place] [address] Referral ID Status Reason Start Date Expiration Date V isits Requested Visits Authorized [id number] Closed Auto-Generate d Referral 05/21/2022 06/20/2023 1 1 [facility] for referral (narrative)No reason for referral information availableWSelect [facility] Work Phone: Reason for visit Narrative* Diagnostic Procedure Only (Urgent) - Closed Specialty Diagnoses / Procedures Referred By Contac t Referred To Contact XR IMAGING Diagnoses Left hip pain Procedures XR HIP GENERAL 3V PELV/AP/LAT LEFT RADEX HIP UNILATERAL WITH PELVIS 2-3 VIEWS Jenna Fitzpatrick APRN.CNP [address] [place] [address] [place] [address] Referral ID Status Reason Start Date Expiration Date V isits Requested Visits Authorized [id number] Closed Auto-Generate d Referral 05/21/2022 06/20/2023 1 1 [facility] for visit Narrative* MRI/CT (Routine) - Closed Specialty Diagnoses / Procedures Referred By Jennifer t Referred To Contact MR IMAGING Diagnoses Cognitive impairment, mild, so stated Procedures MRI BRAIN W QUANT WO IVCON MRI BRAIN BRAIN STEM W/O CONTRAST MATERIAL Luciana Cisneros MD [address] [place] [address] Phone: tel: fax: [place] [address] Referral ID Status Reason Start Date Expiration Date V isits Requested Visits Authorized [id number] Closed Auto-Generate d Referral 05/11/2024 07/10/2024 1 1 [facility] Summary Purpose Family History No Family History Records Found Relationship Condition Age at Onset Recorded Date/T eva Unknown Family History?No pertinent history Unkno wn September 08, 2016 1:12pm Family History?No pertinent history Unkno wn September 08, 2016 1:12pm Relationship Condition Age at Onset Recorded Date/T eva Not Specified Alcoholism Unknown Advance Directives No Advanced Directives Records Found Advance Directive Response Recorded Date/ Time Living Will Yes December 21 6:17pm Power of Advertising Columnist Yes December 21 022 6:17pm Name of Medical Power of Advertising Columnist IRAJ HULL , DAUGHTER December 21, 2021 6:17pm Advance Directive Response Recorded Date/ Time Name of Medical Power of Advertising Columnist Anabella Hull December 21, 2021 8:06pm Living Will Yes December 21 8:06pm Power of Advertising Columnist Yes December 21 8:06pm Advance Directive Response Recorded Date/ Time Living Will Yes February 10, 023 3:17pm Power of Advertising Columnist Yes February 10, 2023 3:17pm Name of Medical Power of Advertising Columnist daughter-yomi hull February 10, 2023 3:17pm Advance Directive Response Recorded Date/ Time Do you have a Healthcare Power of Advertising Columnist? Yes September 01, 2024 7:36am Name of Medical Power of Advertising Columnist anabella hull September 01, 2024 7:36am Advance Directive Response Recorded Date/ Time Do you have a Healthcare Power of Advertising Columnist? Yes September 01, 2024 12:00pm Name of Medical Power of Advertising Columnist anabella hull September 01, 2024 12:00pm Chief Complaint and Reason for Visit Chief [...] to ambulate September 01, 2024 10:2 4am Chief Complaint Admit Date DEBILITY, MECHANICAL FALL September 01 10:24am DEBILITY, MECHANICAL FALL September 02 12:49pm DEBILITY, MECHANICAL FALL September 02 2:04pm DEBILITY, MECHANICAL FALL September 03 11:35am DEBILITY, MECHANICAL FALL September 04 2:12pm DEBILITY, MECHANICAL FALL September 05 4:08pm DEBILITY, MECHANICAL FALL September 06 10:03am Reason for Visit Admit Date Adult failure to thrive September 02, 2024 12:49pm Chronic anticoagulation September 02, 2024 12:49pm Contusion of hip September 02, 2024 12:4 9pm Fall September 02, 2024 12:4 9pm History of atrial fibrillation August 12:49pm History of dementia September 02, 2024 12:4 9pm History of TIAs September 02, 2024 12:4 9pm Unable to ambulate September 02, 2024 12:4 9pm Reason for Referral Specialty Diagnoses / Procedures Referred By Jennifer gomez Referred To Contact [facility] Diagnoses Shuffling gait Ambulatory dysfunction Balance disorder Procedures CONSULT TO PHYSICAL THERAPY PHYSICAL THERAPY EVALUATION HIGH COMPLEX 45 MINS Luciana Cisneros MD [address] [place] [address] [facility] [address] [place] [address] Referral ID Status Reason Start Date Expiration Date Visits Requested Visits Authorized [id number] Pending Review Auto-Generat ed Referral 04/27/2024 04/27/2025 1 1 Specialty Diagnoses / Procedures Referred By Contac t Referred To Contact MR IMAGING Diagnoses Cognitive impairment, mild, so stated Procedures MRI BRAIN W QUANT WO IVCON MRI BRAIN BRAIN STEM W/O CONTRAST MATERIAL Luciana Cisneros MD [address] [place] [address] Mr Imaging [facility] Referral ID Status Reason Start Date Expiration Date Visits Requested Visits Authorized [id number] Pending Review Auto-Generat ed Referral 04/27/2024 05/27/2025 1 1 Specialty Diagnoses / Procedures Referred By Contac t Referred To Contact Gerontology Diagnoses Dementia, unspecified dementia severity, unspecified dementia type, unspecified whether behavioral, psychotic, or mood disturbance or anxiety (HCC) Procedures CONSULT TO GERIATRICS OFFICE/OUTPATIENT [facility] 60 MINUTES Stas Mora MD [address] [place], [place] [id number] Referral ID Status Reason Start Date Expiration Date Visits Requested Visits Authorized [id number] Authorized PCP Requested Referral 04/25/2024 04/25/2025 1 1 Specialty Diagnoses / Procedures Referred By Contac t Referred To Contact MR IMAGING Diagnoses Cerebral infarction, unspecified mechanism (HCC) Procedures MRI BRAIN WO IVCON MRI BRAIN BRAIN STEM W/O CONTRAST MATERIAL Stas Mora MD [address] [place] [address] [place] [address] Referral ID Status Reason Start Date Expiration Date Visits Requested Visits Authorized [id number] Pending Review Auto-Genera eli Referral Patient Cleared - Admin/Chair man/Directo r advise to proceed or did not respond 3 03/17/2024 1 1 Additional Source Comments (unrecognized sect ion and content) No Status Records FoundNo Status Records FoundNo Status Records FoundNo Status Records FoundNo Status Records FoundNo Status Records FoundNo Status Records Found INFORMATION SOURCE (unrecogn ized section and content) DATE CREATED AUTHOR 09/11/2017 [facility] DATE CREATED AUTHOR AUTHOR'S ORGANIZ ATION 09/11/2017 [facility] DATE CREATED AUTHOR AUTHOR'S ORGANIZ ATION 09/15/2017 [facility] DATE CREATED AUTHOR AUTHOR'S ORGANIZ ATION 08/12/2023 [facility] ([place]) DATE CREATED AUTHOR AUTHOR'S ORGANIZ ATION 05/24/2024 [facility] DATE CREATED AUTHOR AUTHOR'S ORGANIZ ATION 09/29/2024 [facility] DATE CREATED AUTHOR AUTHOR'S ORGANIZ ATION 10/02/2024 [facility] Source Comments (unrecognize d section and content) In the event this informatio n is protected by the Federal Confidentiality of Alcohol and Drug Abuse Patient Records regulations: The Federal rules restrict any use of the information to criminally investigate or prosecute any alcohol or drug abuse patient.[facility] the event this information is protected by the Federal Confidentiality of Alcohol and Drug Abuse Patient Records regulations: The Federal rules restrict any use of the information to criminally investigate or prosecute any alcohol or drug abuse patient.[facility] HospitalIn the event this information is protected by the Federal Confidentiality of Alcohol and Drug Abuse Patient Records regulations: The Federal rules restrict any use of the information to criminally investigate or prosecute any alcohol or drug abuse patient.[facility] HospitalIn the event this information is protected by the Federal Confidentiality of Alcohol and Drug Abuse Patient Records regulations: The Federal rules restrict any use of the information to criminally investigate or prosecute any alcohol or drug abuse patient.[facility] HospitalIn the event this information is protected by the Federal Confidentiality of Alcohol and Drug Abuse Patient Records regulations: The Federal rules restrict any use of the information to criminally investigate or prosecute any alcohol or drug abuse patient.[facility] HospitalIn the event this information is protected by the Federal Confidentiality of Alcohol and Drug Abuse Patient Records regulations: The Federal rules restrict any use of the information to criminally investigate or prosecute any alcohol or drug abuse patient.[facility] HospitalIn the event this information is protected by the Federal Confidentiality of Alcohol and Drug Abuse Patient Records regulations: The Federal rules restrict any use of the information to criminally investigate or prosecute any alcohol or drug abuse patient.[facility] HospitalIn the event this information is protected by the Federal Confidentiality of Alcohol and Drug Abuse Patient Records regulations: The Federal rules restrict any use of the information to criminally investigate or prosecute any alcohol or drug abuse patient.[facility] HospitalIn the event this information is protected by the Federal Confidentiality of Alcohol and Drug Abuse Patient Records regulations: The Federal rules restrict any use of the information to criminally investigate or prosecute any alcohol or drug abuse patient.[facility] HospitalIn the event this information is protected by the Federal Confidentiality of Alcohol and Drug Abuse Patient Records regulations: The Federal rules restrict any use of the information to criminally investigate or prosecute any alcohol or drug abuse patient.[facility] HospitalIn the event this information is protected by the Federal Confidentiality of Alcohol and Drug Abuse Patient Records regulations: The Federal rules restrict any use of the information to criminally investigate or prosecute any alcohol or drug abuse patient.[facility] HospitalIn the event this information is protected by the Federal Confidentiality of Alcohol and Drug Abuse Patient Records regulations: The Federal rules restrict any use of the information to criminally investigate or prosecute any alcohol or drug abuse patient.[facility] HospitalIn the event this information is protected by the Federal Confidentiality of Alcohol and Drug Abuse Patient Records regulations: The Federal rules restrict any use of the information to criminally investigate or prosecute any alcohol or drug abuse patient.[facility] HospitalIn the event this information is protected by the Federal Confidentiality of Alcohol and Drug Abuse Patient Records regulations: The Federal rules restrict any use of the information to criminally investigate or prosecute any alcohol or drug abuse patient.[facility] HospitalIn the event this information is protected by the Federal Confidentiality of Alcohol and Drug Abuse Patient Records regulations: The Federal rules restrict any use of the information to criminally investigate or prosecute any alcohol or drug abuse patient.[facility] HospitalIn the event this information is protected by the Federal Confidentiality of Alcohol and Drug Abuse Patient Records regulations: The Federal rules restrict any use of the information to criminally investigate or prosecute any alcohol or drug abuse patient.[facility] HospitalIn the event this information is protected by the Federal Confidentiality of Alcohol and Drug Abuse Patient Records regulations: The Federal rules restrict any use of the information to criminally investigate or prosecute any alcohol or drug abuse patient.[facility] HospitalIn the event this information is protected by the Federal Confidentiality of Alcohol and Drug Abuse Patient Records regulations: The Federal rules restrict any use of the information to criminally investigate or prosecute any alcohol or drug abuse patient.[facility] HospitalIn the event this information is protected by the Federal Confidentiality of Alcohol and Drug Abuse Patient Records regulations: The Federal rules restrict any use of the information to criminally investigate or prosecute any alcohol or drug abuse patient.[facility] HospitalIn the event this information is protected by the Federal Confidentiality of Alcohol and Drug Abuse Patient Records regulations: The Federal rules restrict any use of the information to criminally investigate or prosecute any alcohol or drug abuse patient.[facility] HospitalIn the event this information is protected by the Federal Confidentiality of Alcohol and Drug Abuse Patient Records regulations: The Federal rules restrict any use of the information to criminally investigate or prosecute any alcohol or drug abuse patient.[facility] HospitalIn the event this information is protected by the Federal Confidentiality of Alcohol and Drug Abuse Patient Records regulations: The Federal rules restrict any use of the information to criminally investigate or prosecute any alcohol or drug abuse patient.[facility] HospitalIn the event this information is protected by the Federal Confidentiality of Alcohol and Drug Abuse Patient Records regulations: The Federal rules restrict any use of the information to criminally investigate or prosecute any alcohol or drug abuse patient.[facility] HospitalIn the event this information is protected by the Federal Confidentiality of Alcohol and Drug Abuse Patient Records regulations: The Federal rules restrict any use of the information to criminally investigate or prosecute any alcohol or drug abuse patient.[facility] HospitalIn the event this information is protected by the Federal Confidentiality of Alcohol and Drug Abuse Patient Records regulations: The Federal rules restrict any use of the information to criminally investigate or prosecute any alcohol or drug abuse patient.[facility] HospitalIn the event this information is protected by the Federal Confidentiality of Alcohol and Drug Abuse Patient Records regulations: The Federal rules restrict any use of the information to criminally investigate or prosecute any alcohol or drug abuse patient.[facility] HospitalIn the event this information is protected by the Federal Confidentiality of Alcohol and Drug Abuse Patient Records regulations: The Federal rules restrict any use of the information to criminally investigate or prosecute any alcohol or drug abuse patient.[facility] HospitalIn the event this information is protected by the Federal Confidentiality of Alcohol and Drug Abuse Patient Records regulations: The Federal rules restrict any use of the information to criminally investigate or prosecute any alcohol or drug abuse patient.[facility] HospitalIn the event this information is protected by the Federal Confidentiality of Alcohol and Drug Abuse Patient Records regulations: The Federal rules restrict any use of the information to criminally investigate or prosecute any alcohol or drug abuse patient.[facility] HospitalIn the event this information is protected by the Federal Confidentiality of Alcohol and Drug Abuse Patient Records regulations: The Federal rules restrict any use of the information to criminally investigate or prosecute any alcohol or drug abuse patient.[facility] HospitalIn the event this information is protected by the Federal Confidentiality of Alcohol and Drug Abuse Patient Records regulations: The Federal rules restrict any use of the information to criminally investigate or prosecute any alcohol or drug abuse patient.[facility] HospitalIn the event this information is protected by the Federal Confidentiality of Alcohol and Drug Abuse Patient Records regulations: The Federal rules restrict any use of the information to criminally investigate or prosecute any alcohol or drug abuse patient.[facility] HospitalIn the event this information is protected by the Federal Confidentiality of Alcohol and Drug Abuse Patient Records regulations: The Federal rules restrict any use of the information to criminally investigate or prosecute any alcohol or drug abuse patient.[facility] HospitalIn the event this information is protected by the Federal Confidentiality of Alcohol and Drug Abuse Patient Records regulations: The Federal rules restrict any use of the information to criminally investigate or prosecute any alcohol or drug abuse patient.[facility] HospitalIn the event this information is protected by the Federal Confidentiality of Alcohol and Drug Abuse Patient Records regulations: The Federal rules restrict any use of the information to criminally investigate or prosecute any alcohol or drug abuse patient.[facility] HospitalIn the event this information is protected by the Federal Confidentiality of Alcohol and Drug Abuse Patient Records regulations: The Federal rules restrict any use of the information to criminally investigate or prosecute any alcohol or drug abuse patient.[facility] HospitalIn the event this information is protected by the Federal Confidentiality of Alcohol and Drug Abuse Patient Records regulations: The Federal rules restrict any use of the information to criminally investigate or prosecute any alcohol or drug abuse patient.[facility] HospitalIn the event this information is protected by the Federal Confidentiality of Alcohol and Drug Abuse Patient Records regulations: The Federal rules restrict any use of the information to criminally investigate or prosecute any alcohol or drug abuse patient.[facility] HospitalIn the event this information is protected by the Federal Confidentiality of Alcohol and Drug Abuse Patient Records regulations: The Federal rules restrict any use of the information to criminally investigate or prosecute any alcohol or drug abuse patient.[facility] HospitalIn the event this information is protected by the Federal Confidentiality of Alcohol and Drug Abuse Patient Records regulations: The Federal rules restrict any use of the information to criminally investigate or prosecute any alcohol or drug abuse patient.[facility] HospitalIn the event this information is protected by the Federal Confidentiality of Alcohol and Drug Abuse Patient Records regulations: The Federal rules restrict any use of the information to criminally investigate or prosecute any alcohol or drug abuse patient.[facility] HospitalIn the event this information is protected by the Federal Confidentiality of Alcohol and Drug Abuse Patient Records regulations: The Federal rules restrict any use of the information to criminally investigate or prosecute any alcohol or drug abuse patient.[facility] HospitalIn the event this information is protected by the Federal Confidentiality of Alcohol and Drug Abuse Patient Records regulations: The Federal rules restrict any use of the information to criminally investigate or prosecute any alcohol or drug abuse patient.[facility] HospitalIn the event this information is protected by the Federal Confidentiality of Alcohol and Drug Abuse Patient Records regulations: The Federal rules restrict any use of the information to criminally investigate or prosecute any alcohol or drug abuse patient.[facility] HospitalIn the event this information is protected by the Federal Confidentiality of Alcohol and Drug Abuse Patient Records regulations: The Federal rules restrict any use of the information to criminally investigate or prosecute any alcohol or drug abuse patient.[facility] HospitalIn the event this information is protected by the Federal Confidentiality of Alcohol and Drug Abuse Patient Records regulations: The Federal rules restrict any use of the information to criminally investigate or prosecute any alcohol or drug abuse patient.[facility] HospitalIn the event this information is protected by the Federal Confidentiality of Alcohol and Drug Abuse Patient Records regulations: The Federal rules restrict any use of the information to criminally investigate or prosecute any alcohol or drug abuse patient.[facility] HospitalIn the event this information is protected by the Federal Confidentiality of Alcohol and Drug Abuse Patient Records regulations: The Federal rules restrict any use of the information to criminally investigate or prosecute any alcohol or drug abuse patient.[facility] HospitalIn the event this information is protected by the Federal Confidentiality of Alcohol and Drug Abuse Patient Records regulations: The Federal rules restrict any use of the information to criminally investigate or prosecute any alcohol or drug abuse patient.[facility] HospitalIn the event this information is protected by the Federal Confidentiality of Alcohol and Drug Abuse Patient Records regulations: The Federal rules restrict any use of the information to criminally investigate or prosecute any alcohol or drug abuse patient.[facility] HospitalIn the event this information is protected by the Federal Confidentiality of Alcohol and Drug Abuse Patient Records regulations: The Federal rules restrict any use of the information to criminally investigate or prosecute any alcohol or drug abuse patient.[facility] HospitalIn the event this information is protected by the Federal Confidentiality of Alcohol and Drug Abuse Patient Records regulations: The Federal rules restrict any use of the information to criminally investigate or prosecute any alcohol or drug abuse patient.[facility] HospitalIn the event this information is protected by the Federal Confidentiality of Alcohol and Drug Abuse Patient Records regulations: The Federal rules restrict any use of the information to criminally investigate or prosecute any alcohol or drug abuse patient.[facility] HospitalIn the event this information is protected by the Federal Confidentiality of Alcohol and Drug Abuse Patient Records regulations: The Federal rules restrict any use of the information to criminally investigate or prosecute any alcohol or drug abuse patient.[facility] HospitalIn the event this information is protected by the Federal Confidentiality of Alcohol and Drug Abuse Patient Records regulations: The Federal rules restrict any use of the information to criminally investigate or prosecute any alcohol or drug abuse patient.[facility] HospitalIn the event this information is protected by the Federal Confidentiality of Alcohol and Drug Abuse Patient Records regulations: The Federal rules restrict any use of the information to criminally investigate or prosecute any alcohol or drug abuse patient.[facility] HospitalIn the event this information is protected by the Federal Confidentiality of Alcohol and Drug Abuse Patient Records regulations: The Federal rules restrict any use of the information to criminally investigate or prosecute any alcohol or drug abuse patient.[facility] HospitalIn the event this information is protected by the Federal Confidentiality of Alcohol and Drug Abuse Patient Records regulations: The Federal rules restrict any use of the information to criminally investigate or prosecute any alcohol or drug abuse patient.[facility] HospitalIn the event this information is protected by the Federal Confidentiality of Alcohol and Drug Abuse Patient Records regulations: The Federal rules restrict any use of the information to criminally investigate or prosecute any alcohol or drug abuse patient.[facility] HospitalIn the event this information is protected by the Federal Confidentiality of Alcohol and Drug Abuse Patient Records regulations: The Federal rules restrict any use of the information to criminally investigate or prosecute any alcohol or drug abuse patient.[facility] HospitalIn the event this information is protected by the Federal Confidentiality of Alcohol and Drug Abuse Patient Records regulations: The Federal rules restrict any use of the information to criminally investigate or prosecute any alcohol or drug abuse patient.[facility] HospitalIn the event this information is protected by the Federal Confidentiality of Alcohol and Drug Abuse Patient Records regulations: The Federal rules restrict any use of the information to criminally investigate or prosecute any alcohol or drug abuse patient.[facility] HospitalIn the event this information is protected by the Federal Confidentiality of Alcohol and Drug Abuse Patient Records regulations: The Federal rules restrict any use of the information to criminally investigate or prosecute any alcohol or drug abuse patient.[facility] HospitalIn the event this information is protected by the Federal Confidentiality of Alcohol and Drug Abuse Patient Records regulations: The Federal rules restrict any use of the information to criminally investigate or prosecute any alcohol or drug abuse patient.[facility] HospitalIn the event this information is protected by the Federal Confidentiality of Alcohol and Drug Abuse Patient Records regulations: The Federal rules restrict any use of the information to criminally investigate or prosecute any alcohol or drug abuse patient.[facility] HospitalIn the event this information is protected by the Federal Confidentiality of Alcohol and Drug Abuse Patient Records regulations: The Federal rules restrict any use of the information to criminally investigate or prosecute any alcohol or drug abuse patient.[facility] HospitalIn the event this information is protected by the Federal Confidentiality of Alcohol and Drug Abuse Patient Records regulations: The Federal rules restrict any use of the information to criminally investigate or prosecute any alcohol or drug abuse patient.[facility] HospitalIn the event this information is protected by the Federal Confidentiality of Alcohol and Drug Abuse Patient Records regulations: The Federal rules restrict any use of the information to criminally investigate or prosecute any alcohol or drug abuse patient.[facility] HospitalIn the event this information is protected by the Federal Confidentiality of Alcohol and Drug Abuse Patient Records regulations: The Federal rules restrict any use of the information to criminally investigate or prosecute any alcohol or drug abuse patient.[facility] HospitalIn the event this information is protected by the Federal Confidentiality of Alcohol and Drug Abuse Patient Records regulations: The Federal rules restrict any use of the information to criminally investigate or prosecute any alcohol or drug abuse patient.[facility] HospitalIn the event this information is protected by the Federal Confidentiality of Alcohol and Drug Abuse Patient Records regulations: The Federal rules restrict any use of the information to criminally investigate or prosecute any alcohol or drug abuse patient.[facility] HospitalIn the event this information is protected by the Federal Confidentiality of Alcohol and Drug Abuse Patient Records regulations: The Federal rules restrict any use of the information to criminally investigate or prosecute any alcohol or drug abuse patient.[facility] HospitalIn the event this information is protected by the Federal Confidentiality of Alcohol and Drug Abuse Patient Records regulations: The Federal rules restrict any use of the information to criminally investigate or prosecute any alcohol or drug abuse patient.[facility] HospitalIn the event this information is protected by the Federal Confidentiality of Alcohol and Drug Abuse Patient Records regulations: The Federal rules restrict any use of the information to criminally investigate or prosecute any alcohol or drug abuse patient.[facility] HospitalIn the event this information is protected by the Federal Confidentiality of Alcohol and Drug Abuse Patient Records regulations: The Federal rules restrict any use of the information to criminally investigate or prosecute any alcohol or drug abuse patient.[facility] HospitalIn the event this information is protected by the Federal Confidentiality of Alcohol and Drug Abuse Patient Records regulations: The Federal rules restrict any use of the information to criminally investigate or prosecute any alcohol or drug abuse patient.[facility] HospitalIn the event this information is protected by the Federal Confidentiality of Alcohol and Drug Abuse Patient Records regulations: The Federal rules restrict any use of the information to criminally investigate or prosecute any alcohol or drug abuse patient.[facility] HospitalIn the event this information is protected by the Federal Confidentiality of Alcohol and Drug Abuse Patient Records regulations: The Federal rules restrict any use of the information to criminally investigate or prosecute any alcohol or drug abuse patient.[facility] HospitalIn the event this information is protected by the Federal Confidentiality of Alcohol and Drug Abuse Patient Records regulations: The Federal rules restrict any use of the information to criminally investigate or prosecute any alcohol or drug abuse patient.[facility] HospitalIn the event this information is protected by the Federal Confidentiality of Alcohol and Drug Abuse Patient Records regulations: The Federal rules restrict any use of the information to criminally investigate or prosecute any alcohol or drug abuse patient.[facility] HospitalIn the event this information is protected by the Federal Confidentiality of Alcohol and Drug Abuse Patient Records regulations: The Federal rules restrict any use of the information to criminally investigate or prosecute any alcohol or drug abuse patient.[facility] HospitalIn the event this information is protected by the Federal Confidentiality of Alcohol and Drug Abuse Patient Records regulations: The Federal rules restrict any use of the information to criminally investigate or prosecute any alcohol or drug abuse patient.[facility] HospitalIn the event this information is protected by the Federal Confidentiality of Alcohol and Drug Abuse Patient Records regulations: The Federal rules restrict any use of the information to criminally investigate or prosecute any alcohol or drug abuse patient.[facility] HospitalIn the event this information is protected by the Federal Confidentiality of Alcohol and Drug Abuse Patient Records regulations: The Federal rules restrict any use of the information to criminally investigate or prosecute any alcohol or drug abuse patient.[facility] HospitalIn the event this information is protected by the Federal Confidentiality of Alcohol and Drug Abuse Patient Records regulations: The Federal rules restrict any use of the information to criminally investigate or prosecute any alcohol or drug abuse patient.[facility] HospitalIn the event this information is protected by the Federal Confidentiality of Alcohol and Drug Abuse Patient Records regulations: The Federal rules restrict any use of the information to criminally investigate or prosecute any alcohol or drug abuse patient.[facility] HospitalIn the event this information is protected by the Federal Confidentiality of Alcohol and Drug Abuse Patient Records regulations: The Federal rules restrict any use of the information to criminally investigate or prosecute any alcohol or drug abuse patient.[facility] HospitalIn the event this information is protected by the Federal Confidentiality of Alcohol and Drug Abuse Patient Records regulations: The Federal rules restrict any use of the information to criminally investigate or prosecute any alcohol or drug abuse patient.[facility] HospitalIn the event this information is protected by the Federal Confidentiality of Alcohol and Drug Abuse Patient Records regulations: The Federal rules restrict any use of the information to criminally investigate or prosecute any alcohol or drug abuse patient.[facility] HospitalIn the event this information is protected by the Federal Confidentiality of Alcohol and Drug Abuse Patient Records regulations: The Federal rules restrict any use of the information to criminally investigate or prosecute any alcohol or drug abuse patient.[facility] HospitalIn the event this information is protected by the Federal Confidentiality of Alcohol and Drug Abuse Patient Records regulations: The Federal rules restrict any use of the information to criminally investigate or prosecute any alcohol or drug abuse patient.[facility] HospitalIn the event this information is protected by the Federal Confidentiality of Alcohol and Drug Abuse Patient Records regulations: The Federal rules restrict any use of the information to criminally investigate or prosecute any alcohol or drug abuse patient.[facility] HospitalIn the event this information is protected by the Federal Confidentiality of Alcohol and Drug Abuse Patient Records regulations: The Federal rules restrict any use of the information to criminally investigate or prosecute any alcohol or drug abuse patient.[facility]In the event this information is protected by the Federal Confidentiality of Alcohol and Drug Abuse Patient Records regulations: The Federal rules restrict any use of the information to criminally investigate or prosecute any alcohol or drug abuse patient.[facility] HospitalIn the event this information is protected by the Federal Confidentiality of Alcohol and Drug Abuse Patient Records regulations: The Federal rules restrict any use of the information to criminally investigate or prosecute any alcohol or drug abuse patient.[facility]In the event this information is protected by the Federal Confidentiality of Alcohol and Drug Abuse Patient Records regulations: The Federal rules restrict any use of the information to criminally investigate or prosecute any alcohol or drug abuse patient.[facility]In the event this information is protected by the Federal Confidentiality of Alcohol and Drug Abuse Patient Records regulations: The Federal rules restrict any use of the information to criminally investigate or prosecute any alcohol or drug abuse patient.[facility]In the event this information is protected by the Federal Confidentiality of Alcohol and Drug Abuse Patient Records regulations: The Federal rules restrict any use of the information to criminally investigate or prosecute any alcohol or drug abuse patient.[facility] HospitalIn the event this information is protected by the Federal Confidentiality of Alcohol and Drug Abuse Patient Records regulations: The Federal rules restrict any use of the information to criminally investigate or prosecute any alcohol or drug abuse patient.[facility]In the event this information is protected by the Federal Confidentiality of Alcohol and Drug Abuse Patient Records regulations: The Federal rules restrict any use of the information to criminally investigate or prosecute any alcohol or drug abuse patient.[facility] HospitalIn the event this information is protected by the Federal Confidentiality of Alcohol and Drug Abuse Patient Records regulations: The Federal rules restrict any use of the information to criminally investigate or prosecute any alcohol or drug abuse patient.[facility]In the event this information is protected by the Federal Confidentiality of Alcohol and Drug Abuse Patient Records regulations: The Federal rules restrict any use of the information to criminally investigate or prosecute any alcohol or drug abuse patient.[facility]In the event this information is protected by the Federal Confidentiality of Alcohol and Drug Abuse Patient Records regulations: The Federal rules restrict any use of the information to criminally investigate or prosecute any alcohol or drug abuse patient.[facility]In the event this information is protected by the Federal Confidentiality of Alcohol and Drug Abuse Patient Records regulations: The Federal rules restrict any use of the information to criminally investigate or prosecute any alcohol or drug abuse patient.[facility]In the event this information is protected by the Federal Confidentiality of Alcohol and Drug Abuse Patient Records regulations: The Federal rules restrict any use of the information to criminally investigate or prosecute any alcohol or drug abuse patient.[facility]In the event this information is protected by the Federal Confidentiality of Alcohol and Drug Abuse Patient Records regulations: The Federal rules restrict any use of the information to criminally investigate or prosecute any alcohol or drug abuse patient.[facility] HospitalIn the event this information is protected by the Federal Confidentiality of Alcohol and Drug Abuse Patient Records regulations: The Federal rules restrict any use of the information to criminally investigate or prosecute any alcohol or drug abuse patient.[facility]In the event this information is protected by the Federal Confidentiality of Alcohol and Drug Abuse Patient Records regulations: The Federal rules restrict any use of the information to criminally investigate or prosecute any alcohol or drug abuse patient.[facility]In the event this information is protected by the Federal Confidentiality of Alcohol and Drug Abuse Patient Records regulations: The Federal rules restrict any use of the information to criminally investigate or prosecute any alcohol or drug abuse patient.[facility]In the event this information is protected by the Federal Confidentiality of Alcohol and Drug Abuse Patient Records regulations: The Federal rules restrict any use of the information to criminally investigate or prosecute any alcohol or drug abuse patient.[facility] HospitalIn the event this information is protected by the Federal Confidentiality of Alcohol and Drug Abuse Patient Records regulations: The Federal rules restrict any use of the information to criminally investigate or prosecute any alcohol or drug abuse patient.[facility] HospitalIn the event this information is protected by the Federal Confidentiality of Alcohol and Drug Abuse Patient Records regulations: The Federal rules restrict any use of the information to criminally investigate or prosecute any alcohol or drug abuse patient.[facility] [facility] HospitalIn the event this information is protected by the Federal Confidentiality of Alcohol and Drug Abuse Patient Records regulations: The Federal rules restrict any use of the information to criminally investigate or prosecute any alcohol or drug abuse patient.[facility] HospitalIn the event this information is protected by the Federal Confidentiality of Alcohol and Drug Abuse Patient Records regulations: The Federal rules restrict any use of the information to criminally investigate or prosecute any alcohol or drug abuse patient.[facility] HospitalIn the event this information is protected by the Federal Confidentiality of Alcohol and Drug Abuse Patient Records regulations: The Federal rules restrict any use of the information to criminally investigate or prosecute any alcohol or drug abuse patient.[facility] HospitalIn the event this information is protected by the Federal Confidentiality of Alcohol and Drug Abuse Patient Records regulations: The Federal rules restrict any use of the information to criminally investigate or prosecute any alcohol or drug abuse patient.[facility] HospitalIn the event this information is protected by the Federal Confidentiality of Alcohol and Drug Abuse Patient Records regulations: The Federal rules restrict any use of the information to criminally investigate or prosecute any alcohol or drug abuse patient.[facility] HospitalIn the event this information is protected by the Federal Confidentiality of Alcohol and Drug Abuse Patient Records regulations: The Federal rules restrict any use of the information to criminally investigate or prosecute any alcohol or drug abuse patient.[facility] HospitalIn the event this information is protected by the Federal Confidentiality of Alcohol and Drug Abuse Patient Records regulations: The Federal rules restrict any use of the information to criminally investigate or prosecute any alcohol or drug abuse patient.[facility] HospitalIn the event this information is protected by the Federal Confidentiality of Alcohol and Drug Abuse Patient Records regulations: The Federal rules restrict any use of the information to criminally investigate or prosecute any alcohol or drug abuse patient.[facility] HospitalIn the event this information is protected by the Federal Confidentiality of Alcohol and Drug Abuse Patient Records regulations: The Federal rules restrict any use of the information to criminally investigate or prosecute any alcohol or drug abuse patient.[facility] HospitalIn the event this information is protected by the Federal Confidentiality of Alcohol and Drug Abuse Patient Records regulations: The Federal rules restrict any use of the information to criminally investigate or prosecute any alcohol or drug abuse patient.[facility] HospitalIn the event this information is protected by the Federal Confidentiality of Alcohol and Drug Abuse Patient Records regulations: The Federal rules restrict any use of the information to criminally investigate or prosecute any alcohol or drug abuse patient.[facility] HospitalIn the event this information is protected by the Federal Confidentiality of Alcohol and Drug Abuse Patient Records regulations: The Federal rules restrict any use of the information to criminally investigate or prosecute any alcohol or drug abuse patient.[facility] HospitalIn the event this information is protected by the Federal Confidentiality of Alcohol and Drug Abuse Patient Records regulations: The Federal rules restrict any use of the information to criminally investigate or prosecute any alcohol or drug abuse patient.[facility] HospitalIn the event this information is protected by the Federal Confidentiality of Alcohol and Drug Abuse Patient Records regulations: The Federal rules restrict any use of the information to criminally investigate or prosecute any alcohol or drug abuse patient.[facility] HospitalIn the event this information is protected by the Federal Confidentiality of Alcohol and Drug Abuse Patient Records regulations: The Federal rules restrict any use of the information to criminally investigate or prosecute any alcohol or drug abuse patient.[facility] HospitalIn the event this information is protected by the Federal Confidentiality of Alcohol and Drug Abuse Patient Records regulations: The Federal rules restrict any use of the information to criminally investigate or prosecute any alcohol or drug abuse patient.[facility] HospitalIn the event this information is protected by the Federal Confidentiality of Alcohol and Drug Abuse Patient Records regulations: The Federal rules restrict any use of the information to criminally investigate or prosecute any alcohol or drug abuse patient.[facility] HospitalIn the event this information is protected by the Federal Confidentiality of Alcohol and Drug Abuse Patient Records regulations: The Federal rules restrict any use of the information to criminally investigate or prosecute any alcohol or drug abuse patient.[facility] HospitalIn the event this information is protected by the Federal Confidentiality of Alcohol and Drug Abuse Patient Records regulations: The Federal rules restrict any use of the information to criminally investigate or prosecute any alcohol or drug abuse patient.[facility] HospitalIn the event this information is protected by the Federal Confidentiality of Alcohol and Drug Abuse Patient Records regulations: The Federal rules restrict any use of the information to criminally investigate or prosecute any alcohol or drug abuse patient.[facility] HospitalIn the event this information is protected by the Federal Confidentiality of Alcohol and Drug Abuse Patient Records regulations: The Federal rules restrict any use of the information to criminally investigate or prosecute any alcohol or drug abuse patient.[facility] HospitalIn the event this information is protected by the Federal Confidentiality of Alcohol and Drug Abuse Patient Records regulations: The Federal rules restrict any use of the information to criminally investigate or prosecute any alcohol or drug abuse patient.[facility] Reason for Visit (unrecogniz ed section and [...] STEM W/O CONTRAST MATERIAL Stas Mora MD [address] [facility] [place] [address] [place] [address] Referral ID Status Reason Start Date Expiration Date V isits Requested Visits Authorized [id number] Closed Auto-Generat ed Referral Patient Cleared - [...] anxiety (HCC) Procedures CONSULT TO GERIATRICS OFFICE/OUTPATIENT [facility] 60 MINUTES Stas Mora MD [address] [place] [address] Referral ID Status Reason Start Date Expiration Date V isits Requested Visits Authorized [id number] Closed PCP Requested Referral 04/25/2024 04/25/2025 1 [...] Care Teams (unrecognized sec tion and content) [employer] Consultant Relationship Specialty Start Date End Date Stas Mora MD [address] [facility] [place] [address] PCP - General 08/02/08, Pharmacist [address] [place] [address] Pharmacist Pharmacy 10/19/19 Oracle Fusion Consultant Relationship Specialty Start Date End Date Stas Mora MD [address] [facility] [place] [address] PCP - General 08/02/08, Pharmacist 46488 [place] [address] Pharmacist Pharmacy 10/19/19 Oracle Fusion Consultant Relationship Specialty Start Date End Date Stas Mora MD [address] [place] [address] PCP - General 08/02/08, Pharmacist 58668 [place] [address] Pharmacist Pharmacy 10/19/19 Oracle Fusion Consultant Relationship Specialty Start Date End Date Stas Mora MD [address] [place] [address] PCP - General 08/02/08, Pharmacist 96658 [place] [address] Pharmacist Pharmacy 10/19/19 Oracle Fusion Consultant Relationship Specialty Start Date End Date Stas Mora MD [address] [facility] [place] [address] PCP - General 08/02/08, Pharmacist 21155 [place] [address] Pharmacist Pharmacy 10/19/19 Oracle Fusion Consultant Relationship Specialty Start Date End Date Stas Mora MD [address] [place] [address] PCP - General 08/02/08, Pharmacist 14947 [facility] [place] [address] Pharmacist Pharmacy 10/19/19 Oracle Fusion Consultant Relationship Specialty Start Date End Date Stas Mora MD [address] [facility] [place] [address] PCP - General 08/02/08, Pharmacist 51432 [place] [address] Pharmacist Pharmacy 10/19/19 Oracle Fusion Consultant Relationship Specialty Start Date End Date Stas Mora MD [address] [facility] [place] [address] PCP - General 08/02/08, Pharmacist 08135 [place] [address] Pharmacist Pharmacy 10/19/19 Oracle Fusion Consultant Relationship Specialty Start Date End Date Stas Mora MD [address] [facility] [place] [address] PCP - General 08/02/08, Pharmacist 53923 [place] [address] Pharmacist Pharmacy 10/19/19 Oracle Fusion Consultant Relationship Specialty Start Date End Date Stas Mora MD [address] [facility] [place] [address] PCP - General 08/02/08, Pharmacist 37830 [place] [address] Pharmacist Pharmacy 10/19/19 Oracle Fusion Consultant Relationship Specialty Start Date End Date Stas Mora MD [address] [facility] [place] [address] PCP - General 08/02/08, Pharmacist 14708 [facility] [place] [address] Pharmacist Pharmacy 10/19/19 Oracle Fusion Consultant Relationship Specialty Start Date End Date Stas Mora MD [address] [facility] [place] [address] PCP - General 08/02/08, Pharmacist 27704 [place] [address] Pharmacist Pharmacy 10/19/19 Oracle Fusion Consultant Relationship Specialty Start Date End Date Stas Mora MD [address] [place] [address] PCP - General 08/02/08, Pharmacist 51088 [place] [address] Pharmacist Pharmacy 10/19/19 Oracle Fusion Consultant Relationship Specialty Start Date End Date Stas Mora MD [address] [place] [address] PCP - General 08/02/08, Pharmacist [phone] [place] [address], [place] [address] Pharmacist Pharmacy 10/19/19 Oracle Fusion Consultant Relationship Specialty Start Date End Date Stas Mora MD [address] [place] [address] PCP - General 08/02/08, Pharmacist 89208 [place] [address] Pharmacist Pharmacy 10/19/19 Oracle Fusion Consultant Relationship Specialty Start Date End Date Stas Mora MD [address] [place] [address] PCP - General 08/02/08, Pharmacist 66872 [place] [address] Pharmacist Pharmacy 10/19/19 Oracle Fusion Consultant Relationship Specialty Start Date End Date Stas Mora MD [address] [facility] [place] [address] PCP - General 08/02/08, Pharmacist 25259 [place] [address] Pharmacist Pharmacy 10/19/19 Oracle Fusion Consultant Relationship Specialty Start Date End Date Stas Mora MD [address] [place] [address] PCP - General 08/02/08, Pharmacist [address] [place] [address] Pharmacist Pharmacy 10/19/19 Oracle Fusion Consultant Relationship Specialty Start Date End Date Stas Mora MD [address] [place] [address] PCP - General 08/02/08, Pharmacist [address] [place] [address] Pharmacist Pharmacy 10/19/19 Oracle Fusion Consultant Relationship Specialty Start Date End Date Stas Mora MD [address] [place] [address] PCP - General 08/02/08, Pharmacist [address]375 [place] [address] Pharmacist Pharmacy 10/19/19 Oracle Fusion Consultant Relationship Specialty Start Date End Date Stas Mora MD [address] [place] [address] PCP - General 08/02/08, Pharmacist [address] [place] [address] Pharmacist Pharmacy 10/19/19 Team Status: Active Member Role Status Dates Dr. Stas Mora MD Family Provider Active Dr. Stas Mora MD Primary Care Provider Active Team Status: Inactive Member Role Status Dates Dr. Stas Mora MD Primary Care Provider Active Dr. Brian Cunningham , Emergency Provider Active [employer] Consultant Relationship Specialty Start Date End Date Stas Mora MD [address] [place] [address] PCP - General 08/02/08, Pharmacist [address]83 [place] [address] Pharmacist Pharmacy 10/19/19 Oracle Fusion Consultant Relationship Specialty Start Date End Date Stas Mora MD [address] [facility] [place] [address] PCP - General 08/02/08, Pharmacist [address]18 [place] [address] Pharmacist Pharmacy 10/19/19 Oracle Fusion Consultant Relationship Specialty Start Date End Date Stas Mora MD [address] [place] [address] PCP - General 08/02/08, Pharmacist [address]83 [place] [address] Pharmacist Pharmacy 10/19/19 Oracle Fusion Consultant Relationship Specialty Start Date End Date Stas Mora MD [address] [facility] [place] [address] PCP - General 08/02/08, Pharmacist [address]37 [place] [address] Pharmacist Pharmacy 10/19/19 Oracle Fusion Consultant Relationship Specialty Start Date End Date Stas Mora MD [address] [place] [address] PCP - General 08/02/08, Pharmacist 46954 [place] [address] Pharmacist Pharmacy 10/19/19 Oracle Fusion Consultant Relationship Specialty Start Date End Date Stas Mora MD [address] [facility] [place] [address] PCP - General 08/02/08, Pharmacist [address] [place] [address] Pharmacist Pharmacy 10/19/19 Oracle Fusion Consultant Relationship Specialty Start Date End Date Stas Mora MD [address] [facility] [place] [address] PCP - General 08/02/08, Pharmacist 28435 [place] [address] Pharmacist Pharmacy 10/19/19 Oracle Fusion Consultant Relationship Specialty Start Date End Date Stas Mora MD [address] [facility] [place] [address] PCP - General 08/02/08, Pharmacist [address]136 [place] [address] Pharmacist Pharmacy 10/19/19 Oracle Fusion Consultant Relationship Specialty Start Date End Date Stas Mora MD [address] [facility] [place] [address] PCP - General 08/02/08, Pharmacist 38187 [place] [address] Pharmacist Pharmacy 10/19/19 Oracle Fusion Consultant Relationship Specialty Start Date End Date Stas Mora MD [address] [facility] [place] [address] PCP - General 08/02/08, Pharmacist 69898 [place] [address] Pharmacist Pharmacy 10/19/19 Oracle Fusion Consultant Relationship Specialty Start Date End Date Stas Mora MD [address] [facility] [place] [address] PCP - General 08/02/08, Pharmacist 73836 [place] [address] Pharmacist Pharmacy 10/19/19 Oracle Fusion Consultant Relationship Specialty Start Date End Date Stas Mora MD [address] [facility] [place] [address] PCP - General 08/02/08, Pharmacist [address] [place] [address] Pharmacist Pharmacy 10/19/19 Oracle Fusion Consultant Relationship Specialty Start Date End Date Stas Mora MD [address] [place] [address] PCP - General 08/02/08, Pharmacist [phone] [place] [address] Pharmacist Pharmacy 10/19/19 Oracle Fusion Consultant Relationship Specialty Start Date End Date Stas Mora MD [address] [place] [address] PCP - General 08/02/08, Pharmacist [address] [place] [address] Pharmacist Pharmacy 10/19/19 Oracle Fusion Consultant Relationship Specialty Start Date End Date Stas Mora MD [address] [place] [address] PCP - General 08/02/08, Pharmacist [address]007 [place] [address] Pharmacist Pharmacy 10/19/19 Oracle Fusion Consultant Relationship Specialty Start Date End Date Stas Mora MD [address] [place] [address] PCP - General 08/02/08, Pharmacist [address]57 [place] [address] Pharmacist Pharmacy 10/19/19 Oracle Fusion Consultant Relationship Specialty Start Date End Date Stas Mora MD [address] [place] [address] PCP - General 08/02/08, Pharmacist [address] [place] [address] Pharmacist Pharmacy 10/19/19 Oracle Fusion Consultant Relationship Specialty Start Date End Date Stas Mora MD [address] [facility] [place] [address] PCP - General 08/02/08, Pharmacist [address]75 [place] [address] Pharmacist Pharmacy 10/19/19 Oracle Fusion Consultant Relationship Specialty Start Date End Date Stas Mora MD [address] [place] [address] PCP - General 08/02/08, Pharmacist [address]15 [place] [address] Pharmacist Pharmacy 10/19/19 Oracle Fusion Consultant Relationship Specialty Start Date End Date Stas Mora MD [address] [place] [address] PCP - General 08/02/08, Pharmacist [address]177 [place] [address] Pharmacist Pharmacy 10/19/19 Oracle Fusion Consultant Relationship Specialty Start Date End Date Stas Mora MD [address] [facility] [place] [address] PCP - General 08/02/08, Pharmacist [address]34 [place] [address] Pharmacist Pharmacy 10/19/19 Oracle Fusion Consultant Relationship Specialty Start Date End Date Stas Mora MD [address] [facility] [place] [address] PCP - General 08/02/08, Pharmacist 31280 [place] [address] Pharmacist Pharmacy 10/19/19 Jenna Fitzpatrick APRN.INSOLE LIP TURNER [address] [facility] [place] [address] Attending Physician Family Medicine 02/28/24 Oracle Fusion Consultant Relationship Specialty Start Date End Date Stas Mora MD [address] [facility] [place] [address] PCP - General 08/02/08, Pharmacist [address] [place] [address] Pharmacist Pharmacy 10/19/19 Jenna Fitzpatrick APRN.INSOLE LIP TURNER [address] [place] [address] Attending Physician Family Medicine 02/28/24 Elvis Kearney APRN.INSOLE LIP TURNER [address] [facility] [place] [address] [facility] 03/08/24 Oracle Fusion Consultant Relationship Specialty Start Date End Date Stas Mora MD [address] [place] [address] PCP - General 08/02/08, Pharmacist 41276 [place] [address] Pharmacist Pharmacy 10/19/19 Jenna Fitzpatrick APRN.INSOLE LIP TURNER [address] [facility] [place] [address] Attending Physician Family Medicine 02/28/24 Elvis Kearney APRN.INSOLE LIP TURNER [address] [facility] [place] [address] Attending Physician Family Medicine 03/08/24 Oracle Fusion Consultant Relationship Specialty Start Date End Date Stas Mora MD [address] [place] [address] PCP - General 08/02/08, Pharmacist [address] [place] [address] Pharmacist Pharmacy 10/19/19 Jenna Fitzpatrick, CONSTRUCTION DRILLER.INSOLE LIP TURNER [address] [place] [address] Attending Physician Family Medicine 02/28/24 Elvis Kearney CONSTRUCTION DRILLER.INSOLE LIP TURNER [address] [place] [address] Attending Physician Family Medicine 03/08/24 Oracle Fusion Consultant Relationship Specialty Start Date End Date Stas Mora MD [address] [facility] [place] [address] PCP - General 08/02/08, Pharmacist [address] [place] [address] Pharmacist Pharmacy 10/19/19 Jenna Fitzpatrick, CONSTRUCTION DRILLER.INSOLE LIP TURNER [address] [place] [address] Attending Physician Family Medicine 02/28/24 Elvis Kearney, CONSTRUCTION DRILLER.INSOLE LIP TURNER [address] [facility] [place] [address] Attending Physician Family Medicine 03/08/24 Oracle Fusion Consultant Relationship Specialty Start Date End Date Stas Mora MD [address] [facility] [place] [address] PCP - General 08/02/08, Pharmacist [address] [place] [address] Pharmacist Pharmacy 10/19/19 Jenna Fitzpatrick APRN.INSOLE LIP TURNER [address] [facility] [place] [address] Attending Physician Family Medicine 02/28/24 Elvis Kearney APRN.INSOLE LIP TURNER [address] [facility] [place] [address] Attending Physician Family Medicine 03/08/24 Oracle Fusion Consultant Relationship Specialty Start Date End Date Stas Mora MD [address] [place] [address] PCP - General 08/02/08, Pharmacist [address] [place] [address] Pharmacist Pharmacy 10/19/19 Jenna Fitzpatrick CONSTRUCTION DRILLER.INSOLE LIP TURNER [address] [place] [address] Attending Physician Family Medicine 02/28/24 Elvis Kearney CONSTRUCTION DRILLER.INSOLE LIP TURNER [address] [facility] [place] [address] Attending Physician Family Medicine 03/08/24 Oracle Fusion Consultant Relationship Specialty Start Date End Date Stas Mora MD [address] [facility] [place] [address] PCP - General 08/02/08, Pharmacist [address] [place] [address] Pharmacist Pharmacy 10/19/19 Jenna Fitzpatrick APRN.INSOLE LIP TURNER [address] [place] [address] Attending Physician Family Medicine 02/28/24 Elvis Kearney APRN.INSOLE LIP TURNER [address] [facility] [place] [address] Attending Physician Family Medicine 03/08/24 Oracle Fusion Consultant Relationship Specialty Start Date End Date Stas Mora MD [address] [place] [address] PCP - General 08/02/08, Pharmacist [address] [place] [address] Pharmacist Pharmacy 10/19/19 Jenna Fitzpatrick APRN.INSOLE LIP TURNER [address] [place] [address] Attending Physician Family [facility] 02/28/24 Elvis Kearney APRN.INSOLE LIP TURNER [address] [place] [address] Attending Physician [facility] 03/08/24 Oracle Fusion Consultant Relationship Specialty Start Date End Date Stas Mora MD [address] [place] [address] PCP - General 08/02/08, Pharmacist [address] [place] [address] Pharmacist Pharmacy 10/19/19 Jenna Fitzpatrick CONSTRUCTION DRILLER.INSOLE LIP TURNER [address] [place] [address] Attending Physician Family Medicine 02/28/24 Elvis Kearney APRN.INSOLE LIP TURNER [address] [place] [address] Attending Physician Family Medicine 03/08/24 Oracle Fusion Consultant Relationship Specialty Start Date End Date Stas Mora MD [address] [facility] [place] [address] PCP - General 08/02/08, Pharmacist 35128 [place] [address] Pharmacist Pharmacy 10/19/19 Jenna Fitzpatrick APRN.INSOLE LIP TURNER [address] [place] [address] Attending Physician Family Medicine 02/28/24 Elvis Kearney APRN.INSOLE LIP TURNER [address] [place] [address] Attending Physician Family Medicine 03/08/24 Oracle Fusion Consultant Relationship Specialty Start Date End Date Stas Mora MD [address] [place] [address] PCP - General 08/02/08, Pharmacist [address] [place] [address] Pharmacist Pharmacy 10/19/19 Jenna Fitzpatrick, CONSTRUCTION DRILLER.INSOLE LIP TURNER [address] [place] [address] Attending Physician Family Medicine 02/28/24 Elvis Kearney CONSTRUCTION DRILLER.INSOLE LIP TURNER [address] [facility] [place] [address] Attending Physician Family Medicine 03/08/24 Oracle Fusion Consultant Relationship Specialty Start Date End Date Stas Mora MD [address] [facility] [place] [address] PCP - General 08/02/08, Pharmacist 37089 [place] [address] Pharmacist Pharmacy 10/19/19 Jenna Fitzpatrick APRN.INSOLE LIP TURNER [address] [place] [address] Attending Physician [facility] 02/28/24 Elvis Kearney APRN.INSOLE LIP TURNER [address] [place] [address] Attending Physician [facility] 03/08/24 Oracle Fusion Consultant Relationship Specialty Start Date End Date Stas Mora MD [address] [place] [address] PCP - General 08/02/08, Pharmacist [address]210 [place] [address] Pharmacist Pharmacy 10/19/19 Jenna Fitzpatrick APRN.INSOLE LIP TURNER [address] [place] [address] [facility] 02/[facility]/24 Elvis Kearney APRN.INSOLE LIP TURNER [address] [place] [address] [facility] 03/08/24 Oracle Fusion Consultant Relationship Specialty Start Date End Date Stas Mora MD [address] [place] [address] PCP - General 08/02/08, Pharmacist 37791 [place] [address] Pharmacist Pharmacy 10/19/19 Jenna Fitzpatrick APRN.INSOLE LIP TURNER [address] [place] [address] Attending Physician [facility] 02/28/24 Elvis Kearney APRN.INSOLE LIP TURNER [address] [place] [address] Attending Physician Family Medicine 03/08/24 Oracle Fusion Consultant Relationship Specialty Start Date End Date Stas Mora MD [address] [place] [address] PCP - General 08/02/08, Pharmacist [address] [place] [address] Pharmacist Pharmacy 10/19/19 Jenna Fitzpatrick, CONSTRUCTION DRILLER.INSOLE LIP TURNER [address] [place] [address] Attending Physician Family Medicine 02/28/24 Elvis Kearney CONSTRUCTION DRILLER.INSOLE LIP TURNER [address] [place] [address] Attending Physician [facility] 03/08/24 Oracle Fusion Consultant Relationship Specialty Start Date End Date Stas Mora MD [address] [place] [address] PCP - General 08/02/08, Pharmacist [address] [place] [address] Pharmacist Pharmacy 10/19/19 Jenna Fitzpatrick, CONSTRUCTION DRILLER.INSOLE LIP TURNER [address] [place], [place] [address] Attending Physician Family Medicine 02/28/24 Elvis Kearney, CONSTRUCTION DRILLER.INSOLE LIP TURNER [address] [place] [address] Attending Physician [facility] 03/08/24 [employer] Consultant Relationship Specialty Start Date End Date Stas Mora MD [address] [place] [address] PCP - General 08/02/08, Pharmacist [id number] [place], [place] [id number] Pharmacist Pharmacy 10/19/19 Elvis Kearney APRN.INSOLE LIP TURNER [address] [facility], [place] [id number] Formerly [facility], [facility] 03/08/24 [employer] Consultant Relationship Specialty Start Date End Date Stas Mora MD [address] [place], [place] [id number] PCP - General 08/02/08, Pharmacist [id number] [place] [address] Pharmacist Pharmacy 10/19/19 Elvis Kearney APRN.INSOLE LIP TURNER [address] [facility] [place] [address] Formerly [facility], [facility] 03/08/24 Team Status: Active Member Role Status [...] Attending Provider Active Start: September 01, 2024 Team Status: Active Member Role Status Dates Dr. Stas Mora MD Primary Care Provider Active Start: September 01, 2024 Dr. Inderjit Gillespie MD Emergency Provider Active S tart: September 01, 2024 Dr. Kathy Wells MD Admit Provider Active St art: September 01, 2024 Dr. Kathy Wells MD Attending Provider Active Start: September 01, 2024 Dr. Kathy Wells MD Other Provider Active St art: September 01, 2024 Team Status: Inactive Member Role Status Dates Dr. Stas Mora MD Primary Care Provider Active Start: September 02, 2024 End: September 06, 2024 Dr. Inderjit Gillespie MD Emergency Provider Active S tart: September 02, 2024 End: September 06, 2024 Dr. Kathy Wells MD Admit Provider Active St art: September 02, 2024 End: September 06, 2024 Dr. Kathy Wells MD Other Provider Active St art: September 02, 2024 End: September 06, 2024 Dr. Navid Dominguez MD Attending Provider Active Start: September 02, 2024 End: September 06, 2024 Team Status: Active Member Role Status Dates Dr. Stas Mora MD Primary Care Provider Active Start: September 02, 2024 Dr. Inderjit Gillespie MD Emergency Provider Active S tart: September 02, 2024 Dr. Kathy Wells MD Admit Provider Active St art: September 02, 2024 Dr. Kathy Wells MD Attending Provider Active Start: September 02, 2024 Dr. Kathy Wells MD Other Provider Active St art: September 02, 2024 Team Status: Active Member Role Status Dates Dr. Stas Mora MD Primary Care Provider Active Start: September 03, 2024 Dr. Inderjit Gillespie MD Emergency Provider Active S tart: September 03, 2024 Dr. Kathy Wells MD Admit Provider Active St art: September 03, 2024 Dr. Kathy Wells MD Attending Provider Active Start: September 03, 2024 Dr. Kathy Wells MD Other Provider Active St art: September 03, 2024 Team Status: Active Member Role Status Dates Dr. Stas Mora MD Primary Care Provider Active Start: September 04, 2024 Dr. Inderjit Gillespie MD Emergency Provider Active S tart: September 04, 2024 Dr. Kathy Wells MD Admit Provider Active St art: September 04, 2024 Dr. Kathy Wells MD Attending Provider Active Start: September 04, 2024 Dr. Kathy Wells MD Other Provider Active St art: September 04, 2024 Team Status: Active Member Role Status Dates Dr. Stas Mora MD Primary Care Provider Active Start: September 05, 2024 Dr. Inderjit Gillespie MD Emergency Provider Active S tart: September 05, 2024 Dr. Kathy Wells MD Admit Provider Active St art: September 05, 2024 Dr. Kathy Wells MD Other Provider Active St art: September 05, 2024 Dr. Navid Dominguez MD Attending Provider Active Start: September 05, 2024 Dr. Navid Dominguez MD Other Provider Active Sta rt: September 05, 2024 Team Status: Active Member Role Status Dates Dr. Stas Mora MD Primary Care Provider Active Start: September 06, 2024 Dr. Inderjit Gillespie MD Emergency Provider Active S tart: September 06, 2024 Dr. Kathy Wells MD Admit Provider Active St art: September 06, 2024 Dr. Kathy Wells MD Other Provider Active St art: September 06, 2024 Dr. Navid Dominguez MD Attending Provider Active Start: September 06, 2024 Dr. Navid Dominguez MD Other Provider Active Sta rt: September 06, 2024 [employer] Consultant Relationship Specialty Start Date End Date Stas Mora MD [address] [place], [place] [id number] PCP - General 08/02/08 13, Pharmacist [id number] [place] [address] Pharmacist Pharmacy 10/19/19 Elvis Kearney APRN.CNP [address] [place], [place] [address] Attending Physician Family Medicine 03/08/24 Goals (unrecognized section and content) Goals may [...] BE BASED ON THE PRIMARY CLINICAL RECORDS. [facility] [employer] [facility]. provides no warranty or guarantee of the accuracy or completeness of information in this document.
[2024-10-05 07:27] LABS: Hematocrit 35.0 % (40-54); Hemoglobin 11.0 g/dL (13.0-16.5); Immature Granulocytes Count 0.020 X10^3/uL (0.0-0.0); Mean Corp Hgb Conc 31.4 g/dL (32-36); Mean Corpuscular Volume 78.8 fL (80-94); Mean Platelet Vol. 10.3 fl (6.2-12.0); NRBC Flagged by Analyzer 0 % (0-5); Platelet Count 235 K/mm3 (150-450); RBC Distribution Width CV 18.2 % (11.6-14.6); RBC Distribution Width SD 52.4 fl (35.1-43.9); Red Blood Count 4.44 M/mm3 (4.6-6.2); White Blood Count 6.5 K/mm3 (4.4-11.0)
[2024-10-05 07:57] LABS: Anion Gap 10 (5-15); BUN 13 mg/dL (4-19); BUN/Creat Ratio 18.2 RATIO (10-20); Calcium,Total 8.7 mg/dL (7.6-11.0); Carbon Dioxide 24.6 mmol/L (21.0-32.0); Chloride 106 mmol/L (98-108); Glucose 90 mg/dL (70-99); Potassium 4.1 mmol/L (3.3-5.1)
== END ==
LOC: OLS.WHLTSB 05:00
PROVIDERS: PCP Family Medicine; Visit Provider Internal Medicine
DX: I48.91 Unspecified atrial fibrillation (principal)
CPT/HCPCS: 36415; 80048; 85025

== ENCOUNTER → 2024-10-06 05:00 | Outpatient (REF) | payer MEDICARE, SELFPAY ==
--- OUTSIDE RECORDS SUMMARY | 2024-10-06 03:27 | XMS RPT_ITS | CCD ---
Author Organization [facility] Care Team Providers Care Car Stower Name Role Phone TEEAISHA LOLYDNETH E Unavailable Unavailable TEE DARRELL E Unavailable [...] Unavailable STERLING LYNCH DO Attending Unavailable Tannhof LOAN SERVICING SPECIALIST.FIBERGLASS TECHNICIAN, Jenna Unavailable Caio LOAN SERVICING SPECIALIST.FIBERGLASS TECHNICIAN, Elvis Unavailable LUCIANA CISNEROS Referring Unavailable ELDERBROCKSTAS Primary Care Unavailable Tannhof LOAN SERVICING SPECIALIST.FIBERGLASS TECHNICIAN, Jenna Unavailable Unavail able Tannhof LOAN SERVICING SPECIALIST.FIBERGLASS TECHNICIAN, Jenna Unavailable Morgan POLANCO, Dr. Ruiz Primary Care Provider [phone] Jose Miguel POLANCO, Dr. Jansen Emergency Provider [phone] Priscilla POLANCO, Dr. Kathy Bearden Admit Provider [...] Unavailable Koram, Kathy Monisha Admitting Unavailable Koram, Kathy Monisha Attending Unavailable Elderbrock, Stas Primary Care [...] ELDERBROCK, STAS D Primary Care Unavailable ELDERBROCK, SATS D Referring Unavailable ELDERBROCK, STAS D Primary [...] unspecified vessel or lesion type, unspecified whether [place] or transplanted heart Take 1 tablet by [...] unspecified vessel or lesion type, unspecified whether [place] or transplanted heart Take 1 tablet by [...] hydrochloride 10 mg oral tablet (12 sources) C-sjlcpr-W-aspartate Receptor Antagonist Start: 06-02-19 End: 11-29-19 take [...] Date: 01/01/06 Status: Ordered polyethylene glycol 3350 07909 mg powder for oral solution (1 source) [...] Comment on above: Take 1 capsule by [facility] daily at bedtime. vardenafil 10 [...] disease (20 sources) Atherosclerotic heart disease of [place] coronary artery without angina pectoris; Translations: [Coronary [...] Long-term current use of anticoagulant; Translations: [manager 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] Onset: 09-22-2016 Episodic Other aftercare (3 sources) assisted (current) 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; Translations: [Long-term (current) [...] Test Name Value Interpretation Reference Range Facility [facility] 09-21-2024 [facility] Telephone ([facility]) ROBY FLORES ([id number]) 1935 M Date Time Provider Department 09/21/24 STAS MORA [facility] During your visit today, we recorded the following information about you: Petty Vargas 09/21/2024 9:23 AM Signed [facility] for [facility]. 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, [address] PROTIME Normal 11.7-14.9 [facility] Comment on above: Result Comment: Canc elled via OM: Order cancelled - Patient discharged Performed By: #### L 300.3900 #### [facility] [address] [place], [address] Culture, Blood (WB)on 2024 CUB No growth in 5 days. Normal [facility] Comment on above: Performed By: #### M 200.1000, L509.7001, L101.9900, L501.6710 #### [facility] [address] [place], [address] Prothrombin Time w/INRon INR Normal [facility] Comment on above: Result Comment: Canc elled via OM: Order cancelled - Patient discharged Performed By: #### L 300.3900 #### [facility] [address] [place], [address] PROTIME Normal 11.7-14.9 [facility] Comment on above: Result Comment: Canc elled via OM: Order cancelled - Patient discharged Performed By: #### L 300.3900 #### [facility] [address] [place], [address] Absolute lymphocyte countOrd ered By: Navid Dominguez on 09-06-2024 Lymphocytes Auto (Unsp spec) [#/Vol] 1.28 10*3/uL 0.83-4.51 [facility] Absolute neutrophil countOrd ered By: Navid Dominguez on 09-06-2024 Neutrophils (Bld) [#/Vol] 5.2 10*3/uL 2.0-7.7 [facility] Anion gap in Serum or Plasma Ordered By: Navid Dominguez on 09-06-2024 Anion gap [Moles/Vol] 10 mmol/L 5-15 [facility] Automated blood erythrocyte countOrdered By: Navid Dominguez on 09-06-2024 RBC (Bld) [#/Vol] 4.39 10*6/uL Low 4.6-6.2 [facility] Comment on above: Performed By: #### L 100.0100, L500.2500, L300.3900 #### [facility] [address] [place], [address] Automated blood hematocrit ( percentage)Ordered By: Navid Dominguez on 09-06-2024 Hematocrit (Bld) [Volume fraction] 33.6 % Low 40-54 [facility] Comment on above: Performed By: #### L 100.0100, L500.2500, L300.3900 #### [facility] [address] [place], [address] Automated lymphocyte count a s percentage of total leukocytesOrdered By: Navid Dominguez on 09-06-2024 Lymphocytes/100 WBC Auto (Unsp spec) 16.4 % Low 19-41 [facility] BUN/creatinine ratioOrdered By: Navid Dominguez on 09-06-2024 Urea nitrogen/Creatinine [Mass ratio] 14.4 mg/mg 10-20 [facility] Basic Metabolic Profile (BMP )on 09-06-2024 BUN/CRE 14.4 RATIO Normal -20 [facility] Comment on above: Performed By: #### M 200.1000, L509.7001, L101.9900, L501.6710 #### [facility] [address] [place], [address] ECRCL 64.10 ml/min Normal 50-250 [facility] Comment on above: Performed By: #### M 200.1000, L509.7001, L101.9900, L501.6710 #### [facility] [address] [place], [address] GAP 10 Normal 5-15 [facility] Comment on above: Performed By: #### M 200.1000, L509.7001, L101.9900, L501.6710 #### [facility] [address] [place], [address] Potassium [Moles/Vol] 3.5 mmol/L Normal 3.3-5.1 [facility] Comment on above: Performed By: #### M 200.1000, L509.7001, L101.9900, L501.6710 #### [facility] [address] [place], [address] Basophil percentageOrdered B y: Navid Alberto on 09-06-2024 Basophils/100 WBC (Bld) 1.0 % Normal 0-1 [facility] Comment on above: Performed By: #### L 100.0100, L500.2500, L300.3900 #### [facility] [address] [place], [address] CBC W/Diff, Automatedon 08-21 Absolute Lymph 1.28 X10 3/uL Normal 0.83-4.51 [facility] Comment on above: Performed By: #### L 100.0100, L500.2500, L300.3900 #### [facility] [address] [place], [address] Absolute Neut 5.2 X10 3/uL Normal 2.0-7.7 [facility] Comment on above: Performed By: #### L 100.0100, L500.2500, L300.3900 #### [facility] [address] [place], [address] IG% 0.400 Normal 0.0-0.9 [facility] Comment on above: Result Comment: IG% - Immature Granulocytes (promyelocytes, myelocytes and metamyelocytes) > 1% indicates that a LEFT SHIFT is Present. Performed By: #### L 100.0100, L500.2500, L300.3900 #### [facility] [address] [place], [address] Lymphocytes/100 WBC (Bld) 16.4 % Low 19-41 [facility] Comment on above: Performed By: #### L 100.0100, L500.2500, L300.3900 #### [facility] [address] [place], [address] Nucleated RBC (Bld) [#/Vol] 0 10*3/uL Normal 0-5 [facility] Comment on above: Performed By: #### L 100.0100, L500.2500, L300.3900 #### [facility] [address] [place], [address] RDW SD 48.2 fl High 35.1-43.9 [facility] Comment on above: Performed By: #### L 100.0100, L500.2500, L300.3900 #### [facility] [address] [place], [address] Carbon dioxide, total [Moles /volume] in Central venous bloodOrdered By: Navid Dominguez on 09-06-2024 CO2 [Moles/Vol] 24.9 mmol/L Normal 21.0-32.0 [facility] Comment on above: Performed By: #### M 200.1000, L509.7001, L101.9900, L501.6710 #### [facility] [address] [place], [address] Chloride assayOrdered By: Cameron Dominguez on 09-06-2024 Chloride [Moles/Vol] 106 mmol/L Normal 98-108 [facility] Comment on above: Performed By: #### M 200.1000, L509.7001, L101.9900, L501.6710 #### [facility] [address] [place], [address] Eosinophil percentageOrdered By: Navid Dominguez on 09-06-2024 Eosinophils/100 WBC (Bld) 6.3 % High 0-5 [facility] Comment on above: Performed By: #### L 100.0100, L500.2500, L300.3900 #### [facility] [address] [place], [address] Erythrocyte distribution wid th ratioOrdered By: Navid Dominguez on 09-06-2024 Erythrocyte distribution width (RBC) [Ratio] 17.4 % High 11.6-14.6 [facility] Comment on above: Performed By: #### L 100.0100, L500.2500, L300.3900 #### [facility] [address] [place], [address] Erythrocyte distribution wid th standard deviationOrdered By: Navid Dominguez on 09-06-2024 Erythrocyte distribution width (RBC) [Ratio] 48.2 fl High 35.1-43.9 [facility] Glomerular filtration rate ( GFR) estimation/1.73 sq m using serum, plasma, or whole bOrdered By: Navid Dominguez on 09-06-2024 GFR/1.73 sq M.predicted among non-blacks MDRD (S/P/Bld) [Vol rate/Area] 87 mL/min/{1.73_m2} Normal >60 [facility] Comment on above: mL/min/1.73m2 CKD-EP I Creatinine Equation (2020) Result Comment: mL/m in/1.73m2 CKD-EPI Creatinine Equation (2020) Performed By: #### M 200.1000, L509.7001, L101.9900, L501.6710 #### [facility] [address] [place], [address] Hemoglobin measurementOrdere d By: Navid Dominguez on 09-06-2024 Hemoglobin (Bld) [Mass/Vol] 10.8 g/dL Low 13.0-16.5 [facility] Comment on above: Performed By: #### L 100.0100, L500.2500, L300.3900 #### [facility] [address] [place], [address] Immature granulocytes/100 WB C Auto (Bld)Ordered By: Navid Dominguez on 09-06-2024 Immature granulocytes/100 WBC (Bld) 0.400 % 0.0-0.9 [facility] Comment on above: IG% - Immature Granu locytes (promyelocytes, myelocytes and metamyelocytes) > 1% indicates that a LEFT SHIFT is Present. International normalized rat io (INR) calculationOrdered By: Navid Dominguez on 09-06-2024 INR Coag (Bld) [Relative time] 2.4 {INR} [facility] MCV (mean corpuscular volume ) determinationOrdered By: Navid Dominguez on 09-06-2024 MCV (RBC) [Entitic vol] 76.5 fL Low 80-94 [facility] Comment on above: Performed By: #### L 100.0100, L500.2500, L300.3900 #### [facility] [address] [place], [place], [id number] Mean corpuscular hemoglobin (MCH) determinationOrdered By: Navid Dominguez on 09-06-2024 MCH (RBC) [Entitic mass] 24.6 pg Low 27.0-32.0 [facility] Comment on above: Performed By: #### L 100.0100, L500.2500, L300.3900 #### [facility] [address] [place], [address] Mean corpuscular hemoglobin concentration (MCHC) determinationOrdered By: Navid Dominguez on 09-06-2024 MCHC (RBC) [Mass/Vol] 32.1 g/dL Normal 32-36 [facility] Comment on above: Performed By: #### L 100.0100, L500.2500, L300.3900 #### [facility] [address] [place], [place], [id number] [phone] Mean platelet volume determi nationOrdered By: Navid Dominguez on 09-06-2024 Platelet mean volume (Bld) [Entitic vol] 9.4 fL Normal 6.2-12.0 [facility] Comment on above: Performed By: #### L 100.0100, L500.2500, L300.3900 #### [facility] [address] [place], [address] Monocyte percentageOrdered B y: Navid Dominguez on 09-06-2024 Monocytes/100 WBC (Bld) 9.1 % Normal 0-10 [facility] Comment on above: Performed By: #### L 100.0100, L500.2500, L300.3900 #### [facility] [address] [place], [address] Neutrophil percentageOrdered By: Navid Dominguez on 09-06-2024 Neutrophils/100 WBC (Bld) 66.8 % Normal 47-70 [facility] Comment on above: Performed By: #### L 100.0100, L500.2500, L300.3900 #### [facility] [address] [place], [address] Nucleated red blood cell per centageOrdered By: Navid Dominguez on 09-06-2024 Nucleated RBC/100 WBC (Bld) [Ratio] 0 % 0-5 [facility] Platelet countOrdered By: Cameron Dominguez on 09-06-2024 Platelets (Bld) [#/Vol] 325 10*3/uL Normal 150-450 [facility] Comment on above: Performed By: #### L 100.0100, L500.2500, L300.3900 #### [facility] [address] [place], [address] Potassium measurement (mass/ volume)Ordered By: Navid Dominguez on 09-06-2024 Potassium (Unsp spec) [Mass/Vol] 3.5 mmol/L 3.3-5.1 [facility] Prothrombin Time w/INRon INR Coag (PPP) [Relative time] 2.4 {INR} Normal [facility] Comment on above: Performed By: #### M 200.1000, L509.7001, L101.9900, L501.6710 #### [facility] [address] [place], [address] Prothrombin timeOrdered By: Navid Dominguez on 09-06-2024 PT Coag (PPP) [Time] 27.0 s High 11.7-14.9 [facility] Comment on above: Performed By: #### M 200.1000, L509.7001, L101.9900, L501.6710 #### [facility] [address] [place], [address] Serum creatinine measurement (mass/volume)Ordered By: Navid Dominguez on 09-06-2024 Creatinine [Mass/Vol] 0.73 mg/dL Normal 0.70-1.20 [facility] Comment on above: Performed By: #### M 200.1000, L509.7001, L101.9900, L501.6710 #### [facility] [address] [place], [address] Serum glucose measurement (m ass/volume)Ordered By: Navid Dominguez on 09-06-2024 Glucose [Mass/Vol] 109 mg/dL High 70-99 [facility] Comment on above: Performed By: #### M 200.1000, L509.7001, L101.9900, L501.6710 #### [facility] [address] [place], [address] Serum or plasma calcium alvaro urement (mass/volume)Ordered By: Navid Dominguez on 09-06-2024 Calcium [Mass/Vol] 8.7 mg/dL Normal 7.6-11.0 [facility] Comment on above: Performed By: #### M 200.1000, L509.7001, L101.9900, L501.6710 #### [facility] [address] [place], [address] Serum or plasma urea nitroge n measurement (mass/volume)Ordered By: Navid Dominguez on 09-06-2024 Urea nitrogen [Mass/Vol] 11 mg/dL Normal 4-19 [facility] Comment on above: Performed By: #### M 200.1000, L509.7001, L101.9900, L501.6710 #### [facility] [address] [place], [address] Sodium levelOrdered By: Kamilah Dominguez on 09-06-2024 Sodium [Moles/Vol] 141 mmol/L Normal 133-145 [facility] Comment on above: Performed By: #### M 200.1000, L509.7001, L101.9900, L501.6710 #### [facility] [address] [place], [address] White blood cell (WBC) count Ordered By: Navid Dominguez on 09-06-2024 WBC (Bld) [#/Vol] 7.8 10*3/uL Normal 4.4-11.0 [facility] Comment on above: Performed By: #### L 100.0100, L500.2500, L300.3900 #### [facility] [address] [place], [address] Basic Metabolic Profile (BMP )on 09-05-2024 BUN/CRE 13.4 RATIO Normal 10-20 [facility] Comment on above: Performed By: #### M 200.1000, L509.7001, L101.9900, L501.6710 #### [facility] [address] [place], [address] Calcium [Mass/Vol] 8.6 mg/dL Normal 7.6-11.0 [facility] Comment on above: Performed By: #### M 200.1000, L509.7001, L101.9900, L501.6710 #### [facility] [address] [place], [address] Chloride [Moles/Vol] 105 mmol/L Normal 98-108 [facility] Comment on above: Performed By: #### M 200.1000, L509.7001, L101.9900, L501.6710 #### [facility] [address] [place], [address] CO2 [Moles/Vol] 21.9 mmol/L Normal 21.0-32.0 [facility] Comment on above: Performed By: #### M 200.1000, L509.7001, L101.9900, L501.6710 #### [facility] [address] [place], [address] Creatinine [Mass/Vol] 0.62 mg/dL Low 0.70-1.20 [facility] Comment on above: Performed By: #### M 200.1000, L509.7001, L101.9900, L501.6710 #### [facility] [address] [place], [address] ECRCL 64.10 ml/min Normal 50-250 [facility] Comment on above: Performed By: #### M 200.1000, L509.7001, L101.9900, L501.6710 #### [facility] [address] [place], [address] GAP 12 Normal 5-15 [facility] Comment on above: Performed By: #### M 200.1000, L509.7001, L101.9900, L501.6710 #### [facility] [address] [place], [address] GFR/1.73 sq M.predicted among non-blacks MDRD (S/P/Bld) [Vol rate/Area] 91 mL/min/{1.73_m2} Normal >60 [facility] Comment on above: Result Comment: mL/m in/1.73m2 CKD-EPI Creatinine Equation (2020) Performed By: #### M 200.1000, L509.7001, L101.9900, L501.6710 #### [facility] [address] [place], [address] Glucose [Mass/Vol] 119 mg/dL High 70-99 [facility] Comment on above: Performed By: #### M 200.1000, L509.7001, L101.9900, L501.6710 #### [facility] [address] [place], [address] Potassium [Moles/Vol] 3.3 mmol/L Normal 3.3-5.1 [facility] Comment on above: Performed By: #### M 200.1000, L509.7001, L101.9900, L501.6710 #### [facility] [address] [place], [address] Sodium [Moles/Vol] 139 mmol/L Normal 133-145 [facility] Comment on above: Performed By: #### M 200.1000, L509.7001, L101.9900, L501.6710 #### [facility] [address] [place], [address] Urea nitrogen [Mass/Vol] 8 mg/dL Normal 4-19 [facility] Comment on above: Performed By: #### M 200.1000, L509.7001, L101.9900, L501.6710 #### [facility] [address] [place], [address] Bilirubin Test strip Ql (U)O rdered By: Marta Black on 09-05-2024 Bilirubin Ql (U) Negative Negative [facility] CBC W/Diff, Automatedon 08-21 Absolute Lymph 0.96 X10 3/uL Normal 0.83-4.51 [facility] Comment on above: Performed By: #### M 200.1000, L509.7001, L101.9900, L501.6710 #### [facility] [address] [place], [address] Absolute Neut 7.6 X10 3/uL Normal 2.0-7.7 [facility] Comment on above: Performed By: #### M 200.1000, L509.7001, L101.9900, L501.6710 #### [facility] [address] [place], [address] Basophils/100 WBC (Bld) 0.7 % Normal 0-1 [facility] Comment on above: Performed By: #### M 200.1000, L509.7001, L101.9900, L501.6710 #### [facility] [address] [place], [address] Eosinophils/100 WBC (Bld) 4.0 % Normal 0-5 [facility] Comment on above: Performed By: #### M 200.1000, L509.7001, L101.9900, L501.6710 #### [facility] [address] [place], [address] Erythrocyte distribution width (RBC) [Ratio] 17.6 % High 11.6-14.6 [facility] Comment on above: Performed By: #### M 200.1000, L509.7001, L101.9900, L501.6710 #### [facility] [address] [place], [address] Hematocrit (Bld) [Volume fraction] 35.3 % Low 40-54 [facility] Comment on above: Performed By: #### M 200.1000, L509.7001, L101.9900, L501.6710 #### [facility] [address] [place], [address] Hemoglobin (Bld) [Mass/Vol] 11.3 g/dL Low 13.0-16.5 [facility] Comment on above: Performed By: #### M 200.1000, L509.7001, L101.9900, L501.6710 #### [facility] [address] [place], [address] IG% 0.400 Normal 0.0-0.9 [facility] Comment on above: Result Comment: IG% - Immature Granulocytes (promyelocytes, myelocytes and metamyelocytes) > 1% indicates that a LEFT SHIFT is Present. Performed By: #### M 200.1000, L509.7001, L101.9900, L501.6710 #### [facility] [address] [place], [address] Lymphocytes/100 WBC (Bld) 9.8 % Low 19-41 [facility] Comment on above: Performed By: #### M 200.1000, L509.7001, L101.9900, L501.6710 #### [facility] [address] [place], [address] MCH (RBC) [Entitic mass] 24.4 pg Low 27.0-32.0 [facility] Comment on above: Performed By: #### M 200.1000, L509.7001, L101.9900, L501.6710 #### [facility] [address] [place], [address] MCHC (RBC) [Mass/Vol] 32.0 g/dL Normal 32-36 [facility] Comment on above: Performed By: #### M 200.1000, L509.7001, L101.9900, L501.6710 #### [facility] [address] [place], [address] MCV (RBC) [Entitic vol] 76.2 fL Low 80-94 [facility] Comment on above: Performed By: #### M 200.1000, L509.7001, L101.9900, L501.6710 #### [facility] [address] [place], [address] Monocytes/100 WBC (Bld) 7.9 % Normal 0-10 [facility] Comment on above: Performed By: #### M 200.1000, L509.7001, L101.9900, L501.6710 #### [facility] [address] [place], [address] Neutrophils/100 WBC (Bld) 77.2 % High 47-70 [facility] Comment on above: Performed By: #### M 200.1000, L509.7001, L101.9900, L501.6710 #### [facility] [address] [place], [address] Nucleated RBC (Bld) [#/Vol] 0 10*3/uL Normal 0-5 [facility] Comment on above: Performed By: #### M 200.1000, L509.7001, L101.9900, L501.6710 #### [facility] [address] [place], [address] Platelet mean volume (Bld) [Entitic vol] 9.3 fL Normal 6.2-12.0 [facility] Comment on above: Performed By: #### M 200.1000, L509.7001, L101.9900, L501.6710 #### [facility] [address] [place], [address] Platelets (Bld) [#/Vol] 329 10*3/uL Normal 150-450 [facility] Comment on above: Performed By: #### M 200.1000, L509.7001, L101.9900, L501.6710 #### [facility] [address] [place], [address] RBC (Bld) [#/Vol] 4.63 10*6/uL Normal 4.6-6.2 [facility] Comment on above: Performed By: #### M 200.1000, L509.7001, L101.9900, L501.6710 #### [facility] [address] [place], [address] RDW SD 47.9 fl High 35.1-43.9 [facility] Comment on above: Performed By: #### M 200.1000, L509.7001, L101.9900, L501.6710 #### [facility] [address] [place], [address] WBC (Bld) [#/Vol] 9.8 10*3/uL Normal 4.4-11.0 [facility] Comment on above: Performed By: #### M 200.1000, L509.7001, L101.9900, L501.6710 #### [facility] [address] [place], [address] Ketones Test strip Ql (U)Ord ered By: Marta Black on 09-05-2024 Ketones Ql (U) Negative Negative [facility] Microscopic analysis of urin e for red blood cells (RBC)Ordered By: Marta Black on 09-05-2024 Microscopic analysis of urine for red blood cells (RBC) 0-5 SEEN /hpf 0-5 [facility] Mucus LM Ql (Urine sed)Order ed By: Marta Black on 09-05-2024 Mucus Ql (Urine sed) 0 SEEN /hpf [facility] Nitrite Test strip Ql (U)Ord ered By: Marta Black on 09-05-2024 Nitrite Ql (U) Negative Negative [facility] Protein Test strip Ql (U)Ord ered By: Marta Black on 09-05-2024 Protein Ql (U) 15 mg/dl High Negative [facility] Prothrombin Time w/INRon INR Coag (PPP) [Relative time] 2.2 {INR} Normal [facility] Comment on above: Performed By: #### M 200.1000, L509.7001, L101.9900, L501.6710 #### [facility] [address] [place], [address] PT Coag (PPP) [Time] 24.7 s High 11.7-14.9 [facility] Comment on above: Performed By: #### M 200.1000, L509.7001, L101.9900, L501.6710 #### [facility] [address] [place], [address] Squamous epithelial cells de tection in urine sediment by light microscopyOrdered By: Marta Black on 09-05-2024 Epithelial cells.squamous LM Ql (Urine sed) 0 SEEN /hpf 0-5 [facility] Urinalysis, Completeon 09-05 BACTERIA RARE Normal None Seen [facility] Comment on above: Order Comment: CLEAN CATCH Performed By: #### M 200.1000, L509.7001, L101.9900, L501.6710 #### [facility] [address] [place], [address] RBC 0-5 SEEN Normal 0-5 [facility] Comment on above: Order Comment: CLEAN CATCH Performed By: #### M 200.1000, L509.7001, L101.9900, L501.6710 #### [facility] [address] [place], [address] WBC 0-5 SEEN Normal 0-5 [facility] Comment on above: Order Comment: CLEAN CATCH Performed By: #### M 200.1000, L509.7001, L101.9900, L501.6710 #### [facility] [address] [place], [address] BILIRUBIN URINE Negative Normal Negative [facility] Comment on above: Order Comment: CLEAN CATCH Performed By: #### M 200.1000, L509.7001, L101.9900, L501.6710 #### [facility] [address] [place], [address] Clarity (U) Clear Normal Clear [facility] Comment on above: Order Comment: CLEAN CATCH Performed By: #### M 200.1000, L509.7001, L101.9900, L501.6710 #### [facility] [address] [place], [address] Color (U) Straw Normal Yellow [facility] Comment on above: Order Comment: CLEAN CATCH Performed By: #### M 200.1000, L509.7001, L101.9900, L501.6710 #### [facility] [address] [place], [address] GLUCOSE, UR Normal Normal Normal [facility] Comment on above: Order Comment: CLEAN CATCH Performed By: #### M 200.1000, L509.7001, L101.9900, L501.6710 #### [facility] [address] [place], [address] KETONE UR Negative Normal Negative [facility] Comment on above: Order Comment: CLEAN CATCH Performed By: #### M 200.1000, L509.7001, L101.9900, L501.6710 #### [facility] [address] [place], [address] LEUK ESTERASE Negative Normal Negative [facility] Comment on above: Order Comment: CLEAN CATCH Performed By: #### M 200.1000, L509.7001, L101.9900, L501.6710 #### [facility] [address] [place], [address] Nitrite Ql (U) Negative Normal Negative [facility] Comment on above: Order Comment: CLEAN CATCH Performed By: #### M 200.1000, L509.7001, L101.9900, L501.6710 #### [facility] [address] [place], [address] OCCULT BLOOD-UR 25 /ul Abnormal Negative [facility] Comment on above: Order Comment: CLEAN CATCH Performed By: #### M 200.1000, L509.7001, L101.9900, L501.6710 #### [facility] [address] [place], [address] pH UR 7.0 Normal 5.0 - 8.0 [facility] Comment on above: Order Comment: CLEAN CATCH Performed By: #### M 200.1000, L509.7001, L101.9900, L501.6710 #### [facility] [address] [place], [address] PROT DIPSTX 15 mg/dl Abnormal Negative [facility] Comment on above: Order Comment: CLEAN CATCH Performed By: #### M 200.1000, L509.7001, L101.9900, L501.6710 #### [facility] [address] [place], [address] SP.GR. DIPSTX 1.005 Normal 1.002-1.03 0 [facility] Comment on above: Order Comment: CLEAN CATCH Performed By: #### M 200.1000, L509.7001, L101.9900, L501.6710 #### [facility] [address] [place], [address] UROBILI Normal Normal Normal [facility] Comment on above: Order Comment: CLEAN CATCH Performed By: #### M 200.1000, L509.7001, L101.9900, L501.6710 #### [facility] [address] [place], [address] EPI,SQUAMOUS 0 SEEN Normal 0-5 [facility] Comment on above: Order Comment: CLEAN CATCH Performed By: #### M 200.1000, L509.7001, L101.9900, L501.6710 #### [facility] [address] [place], [address] Mucus Ql (Urine sed) 0 SEEN Normal [facility] Comment on above: Order Comment: CLEAN CATCH Performed By: #### M 200.1000, L509.7001, L101.9900, L501.6710 #### [facility] [address] [place], [address] Urine clarityOrdered By: Magnolia Black on 09-05-2024 Clarity (U) Clear Clear [facility] Urine color determinationOrd ered By: Marta Black on 09-05-2024 Color (U) Straw Yellow [facility] Urine glucose detectionOrder ed By: Marta Black on 09-05-2024 Glucose Ql (U) Normal mg/dl Normal [facility] Urine leukocyte esterase det ection by dipstickOrdered By: Marta Black on 09-05-2024 Leukocyte esterase Test strip Ql (U) Negative Negative [facility] Urine pHOrdered By: Marta Black on 09-05-2024 pH (U) 7.0 [pH] 5.0 - 8.0 [facility] Urine sediment bacteria coun t by microscopy (number/high power field)Ordered By: Marta Black on 09-05-2024 Bacteria LM.HPF (Urine sed) [#/Area] RARE /hpf None Seen [facility] Urine specific gravity measu rementOrdered By: Marta Black on 09-05-2024 Specific gravity (U) [Rel density] 1.005 1.002-1.03 0 [facility] Urine urobilinogen measureme ntOrdered By: Marta Black on 09-05-2024 Urobilinogen Ql (U) Normal mg/dl Normal [facility] White blood cell countOrdere d By: Marta Black on 09-05-2024 White blood cell count 0-5 SEEN /hpf 0-5 [facility] Basic Metabolic Profile (BMP )on 09-04-2024 BUN/CRE 17.3 RATIO Normal 10-20 [facility] Comment on above: Performed By: #### M 200.1000, L509.7001, L101.9900, L501.6710 #### [facility] [address] [place], [address] Calcium [Mass/Vol] 8.2 mg/dL Normal 7.6-11.0 [facility] Comment on above: Performed By: #### M 200.1000, L509.7001, L101.9900, L501.6710 #### [facility] [address] [place], [address] Chloride [Moles/Vol] 107 mmol/L Normal 98-108 [facility] Comment on above: Performed By: #### M 200.1000, L509.7001, L101.9900, L501.6710 #### [facility] [address] [place], [address] CO2 [Moles/Vol] 20.9 mmol/L Low 21.0-32.0 [facility] Comment on above: Performed By: #### M 200.1000, L509.7001, L101.9900, L501.6710 #### [facility] [address] [place], [address] Creatinine [Mass/Vol] 0.72 mg/dL Normal 0.70-1.20 [facility] Comment on above: Performed By: #### M 200.1000, L509.7001, L101.9900, L501.6710 #### [facility] [address] [place], [address] ECRCL 64.10 ml/min Normal 50-250 [facility] Comment on above: Performed By: #### M 200.1000, L509.7001, L101.9900, L501.6710 #### [facility] [address] [place], [address] GAP 11 Normal 5-15 [facility] Comment on above: Performed By: #### M 200.1000, L509.7001, L101.9900, L501.6710 #### [facility] [address] [place], [address] GFR/1.73 sq M.predicted among non-blacks MDRD (S/P/Bld) [Vol rate/Area] 87 mL/min/{1.73_m2} Normal >60 [facility] Comment on above: Result Comment: mL/m in/1.73m2 CKD-EPI Creatinine Equation (2020) Performed By: #### M 200.1000, L509.7001, L101.9900, L501.6710 #### [facility] [address] [place], [address] Glucose [Mass/Vol] 120 mg/dL High 70-99 [facility] Comment on above: Performed By: #### M 200.1000, L509.7001, L101.9900, L501.6710 #### [facility] [address] [place], [address] Potassium [Moles/Vol] 3.5 mmol/L Normal 3.3-5.1 [facility] Comment on above: Performed By: #### M 200.1000, L509.7001, L101.9900, L501.6710 #### [facility] [address] [place], [address] Sodium [Moles/Vol] 139 mmol/L Normal 133-145 [facility] Comment on above: Performed By: #### M 200.1000, L509.7001, L101.9900, L501.6710 #### [facility] [address] [place], [address] Urea nitrogen [Mass/Vol] 12 mg/dL Normal 4-19 [facility] Comment on above: Performed By: #### M 200.1000, L509.7001, L101.9900, L501.6710 #### [facility] [address] [place], [address] CBC W/Diff, Automatedon 08-21 Absolute Lymph 0.89 X10 3/uL Normal 0.83-4.51 [facility] Comment on above: Performed By: #### M 200.1000, L509.7001, L101.9900, L501.6710 #### [facility] [address] [place], [address] Absolute Neut 8.9 X10 3/uL High 2.0-7.7 [facility] Comment on above: Performed By: #### M 200.1000, L509.7001, L101.9900, L501.6710 #### [facility] [address] [place], [address] Basophils/100 WBC (Bld) 0.8 % Normal 0-1 [facility] Comment on above: Performed By: #### M 200.1000, L509.7001, L101.9900, L501.6710 #### [facility] [address] [place], [address] Eosinophils/100 WBC (Bld) 5.3 % High 0-5 [facility] Comment on above: Performed By: #### M 200.1000, L509.7001, L101.9900, L501.6710 #### [facility] [address] [place], [address] Erythrocyte distribution width (RBC) [Ratio] 17.5 % High 11.6-14.6 [facility] Comment on above: Performed By: #### M 200.1000, L509.7001, L101.9900, L501.6710 #### [facility] [address] [place], [address] Hematocrit (Bld) [Volume fraction] 33.3 % Low 40-54 [facility] Comment on above: Performed By: #### M 200.1000, L509.7001, L101.9900, L501.6710 #### [facility] [address] [place], [address] Hemoglobin (Bld) [Mass/Vol] 10.7 g/dL Low 13.0-16.5 [facility] Comment on above: Performed By: #### M 200.1000, L509.7001, L101.9900, L501.6710 #### [facility] [address] [place], [address] IG% 0.400 Normal 0.0-0.9 [facility] Comment on above: Result Comment: IG% - Immature Granulocytes (promyelocytes, myelocytes and metamyelocytes) > 1% indicates that a LEFT SHIFT is Present. Performed By: #### M 200.1000, L509.7001, L101.9900, L501.6710 #### [facility] [address] [place], [address] Lymphocytes/100 WBC (Bld) 7.8 % Low 19-41 [facility] Comment on above: Performed By: #### M 200.1000, L509.7001, L101.9900, L501.6710 #### [facility] [address] [place], [address] MCH (RBC) [Entitic mass] 24.6 pg Low 27.0-32.0 [facility] Comment on above: Performed By: #### M 200.1000, L509.7001, L101.9900, L501.6710 #### [facility] [address] [place], [address] MCHC (RBC) [Mass/Vol] 32.1 g/dL Normal 32-36 [facility] Comment on above: Performed By: #### M 200.1000, L509.7001, L101.9900, L501.6710 #### [facility] [address] [place], [address] MCV (RBC) [Entitic vol] 76.6 fL Low 80-94 [facility] Comment on above: Performed By: #### M 200.1000, L509.7001, L101.9900, L501.6710 #### [facility] [address] [place], [address] Monocytes/100 WBC (Bld) 7.7 % Normal 0-10 [facility] Comment on above: Performed By: #### M 200.1000, L509.7001, L101.9900, L501.6710 #### [facility] [address] [place], [address] Neutrophils/100 WBC (Bld) 78.0 % High 47-70 [facility] Comment on above: Performed By: #### M 200.1000, L509.7001, L101.9900, L501.6710 #### [facility] [address] [place], [address] Nucleated RBC (Bld) [#/Vol] 0 10*3/uL Normal 0-5 [facility] Comment on above: Performed By: #### M 200.1000, L509.7001, L101.9900, L501.6710 #### [facility] [address] [place], [address] Platelet mean volume (Bld) [Entitic vol] 10.6 fL Normal 6.2-12.0 [facility] Comment on above: Performed By: #### M 200.1000, L509.7001, L101.9900, L501.6710 #### [facility] [address] [place], [address] Platelets (Bld) [#/Vol] 305 10*3/uL Normal 150-450 [facility] Comment on above: Performed By: #### M 200.1000, L509.7001, L101.9900, L501.6710 #### [facility] [address] [place], [address] RBC (Bld) [#/Vol] 4.35 10*6/uL Low 4.6-6.2 [facility] Comment on above: Performed By: #### M 200.1000, L509.7001, L101.9900, L501.6710 #### [facility] [address] [place], [address] RDW SD 48.3 fl High 35.1-43.9 [facility] Comment on above: Performed By: #### M 200.1000, L509.7001, L101.9900, L501.6710 #### [facility] [address] [place], [address] WBC (Bld) [#/Vol] 11.4 10*3/uL High 4.4-11.0 [facility] Comment on above: Performed By: #### M 200.1000, L509.7001, L101.9900, L501.6710 #### [facility] [address] [place], [address] Prothrombin Time w/INRon INR Coag (PPP) [Relative time] 1.9 {INR} Normal [facility] Comment on above: Performed By: #### L 300.3900 #### [facility] [address] [place], [address] PT Coag (PPP) [Time] 21.8 s High 11.7-14.9 [facility] Comment on above: Performed By: #### L 300.3900 #### [facility] [address] [place], [address] Basic Metabolic Profile (BMP )on 09-03-2024 BUN/CRE 13.3 RATIO Normal 10-20 [facility] Comment on above: Performed By: #### M 200.1000, L509.7001, L101.9900, L501.6710 #### [facility] [address] [place], [address] Calcium [Mass/Vol] 8.5 mg/dL Normal 7.6-11.0 [facility] Comment on above: Performed By: #### M 200.1000, L509.7001, L101.9900, L501.6710 #### [facility] [address] [place], [address] Chloride [Moles/Vol] 104 mmol/L Normal 98-108 [facility] Comment on above: Performed By: #### M 200.1000, L509.7001, L101.9900, L501.6710 #### [facility] [address] [place], [address] CO2 [Moles/Vol] 19.1 mmol/L Low 21.0-32.0 [facility] Comment on above: Performed By: #### M 200.1000, L509.7001, L101.9900, L501.6710 #### [facility] [address] [place], [address] Creatinine [Mass/Vol] 0.74 mg/dL Normal 0.70-1.20 [facility] Comment on above: Performed By: #### M 200.1000, L509.7001, L101.9900, L501.6710 #### [facility] [address] [place], [address] ECRCL 64.10 ml/min Normal 50-250 [facility] Comment on above: Performed By: #### M 200.1000, L509.7001, L101.9900, L501.6710 #### [facility] [address] [place], [address] GAP 13 Normal 5-15 [facility] Comment on above: Performed By: #### M 200.1000, L509.7001, L101.9900, L501.6710 #### [facility] [address] [place], [address] GFR/1.73 sq M.predicted among non-blacks MDRD (S/P/Bld) [Vol rate/Area] 87 mL/min/{1.73_m2} Normal >60 [facility] Comment on above: Result Comment: mL/m in/1.73m2 CKD-EPI Creatinine Equation (2020) Performed By: #### M 200.1000, L509.7001, L101.9900, L501.6710 #### [facility] [address] [place], [address] Glucose [Mass/Vol] 111 mg/dL High 70-99 [facility] Comment on above: Performed By: #### M 200.1000, L509.7001, L101.9900, L501.6710 #### [facility] [address] [place], [address] Potassium [Moles/Vol] 3.5 mmol/L Normal 3.3-5.1 [facility] Comment on above: Performed By: #### M 200.1000, L509.7001, L101.9900, L501.6710 #### [facility] [address] [place], [address] Sodium [Moles/Vol] 137 mmol/L Normal 133-145 [facility] Comment on above: Performed By: #### M 200.1000, L509.7001, L101.9900, L501.6710 #### [facility] [address] [place], [address] Urea nitrogen [Mass/Vol] 10 mg/dL Normal 4-19 [facility] Comment on above: Performed By: #### M 200.1000, L509.7001, L101.9900, L501.6710 #### [facility] [address] [place], [address] CBC W/Diff, Automatedon - Absolute Lymph 0.82 X10 3/uL Low 0.83-4.51 [facility] Comment on above: Performed By: #### M 200.1000, L509.7001, L101.9900, L501.6710 #### [facility] [address] [place], [address] Absolute Neut 10.2 X10 3/uL High 2.0-7.7 [facility] Comment on above: Performed By: #### M 200.1000, L509.7001, L101.9900, L501.6710 #### [facility] [address] [place], [id number] Basophils/100 WBC (Bld) 0.7 % Normal 0-1 [facility] Comment on above: Performed By: #### M 200.1000, L509.7001, L101.9900, L501.6710 #### [facility] [address] [place], [id number] Eosinophils/100 WBC (Bld) 2.8 % Normal 0-5 [facility] Comment on above: Performed By: #### M 200.1000, L509.7001, L101.9900, L501.6710 #### [facility] [address] [place], [address] Erythrocyte distribution width (RBC) [Ratio] 17.5 % High 11.6-14.6 [facility] Comment on above: Performed By: #### M 200.1000, L509.7001, L101.9900, L501.6710 #### [facility] [address] [place], [address] Hematocrit (Bld) [Volume fraction] 35.6 % Low 40-54 [facility] Comment on above: Performed By: #### M 200.1000, L509.7001, L101.9900, L501.6710 #### [facility] [address] [place], [address] Hemoglobin (Bld) [Mass/Vol] 11.3 g/dL Low 13.0-16.5 [facility] Comment on above: Performed By: #### M 200.1000, L509.7001, L101.9900, L501.6710 #### [facility] [address] [place], [address] IG% 0.400 Normal 0.0-0.9 [facility] Comment on above: Result Comment: IG% - Immature Granulocytes (promyelocytes, myelocytes and metamyelocytes) > 1% indicates that a LEFT SHIFT is Present. Performed By: #### M 200.1000, L509.7001, L101.9900, L501.6710 #### [facility] [address] [place], [address] Lymphocytes/100 WBC (Bld) 6.7 % Low 19-41 [facility] Comment on above: Performed By: #### M 200.1000, L509.7001, L101.9900, L5.6710 #### [facility] [address] [place], [address] MCH (RBC) [Entitic mass] 24.7 pg Low 27.0-32.0 [facility] Comment on above: Performed By: #### M 200.1000, L509.7001, L101.9900, L501.6710 #### [facility] [address] [place], [address] MCHC (RBC) [Mass/Vol] 31.7 g/dL Low 32-36 [facility] Comment on above: Performed By: #### M 200.1000, L509.7001, L101.9900, L501.6710 #### [facility] [address] [place], [address] MCV (RBC) [Entitic vol] 77.7 fL Low 80-94 [facility] Comment on above: Performed By: #### M 200.1000, L509.7001, L101.9900, L501.6710 #### [facility] [address] [place], [address] Monocytes/100 WBC (Bld) 6.0 % Normal 0-10 [facility] Comment on above: Performed By: #### M 200.1000, L509.7001, L101.9900, L501.6710 #### [facility] [address] [place], [address] Neutrophils/100 WBC (Bld) 83.4 % High 47-70 [facility] Comment on above: Performed By: #### M 200.1000, L509.7001, L101.9900, L501.6710 #### [facility] [address] [place], [address] Nucleated RBC (Bld) [#/Vol] 0 10*3/uL Normal 0-5 [facility] Comment on above: Performed By: #### M 200.1000, L509.7001, L101.9900, L501.6710 #### [facility] [address] [place], [address] Platelet mean volume (Bld) [Entitic vol] 9.9 fL Normal 6.2-12.0 [facility] Comment on above: Performed By: #### M 200.1000, L509.7001, L101.9900, L501.6710 #### [facility] [address] [place], [address] Platelets (Bld) [#/Vol] 252 10*3/uL Normal 150-450 [facility] Comment on above: Performed By: #### M 200.1000, L509.7001, L101.9900, L501.6710 #### [facility] [address] [place], [id number] RBC (Bld) [#/Vol] 4.58 10*6/uL Low 4.6-6.2 [facility] Comment on above: Performed By: #### M 200.1000, L509.7001, L101.9900, L501.6710 #### [facility] [address] [place], [address] RDW SD 48.2 fl High 35.1-43.9 [facility] Comment on above: Performed By: #### M 200.1000, L509.7001, L101.9900, L501.6710 #### [facility] [address] [place], [address] WBC (Bld) [#/Vol] 12.3 10*3/uL High 4.4-11.0 [facility] Comment on above: Performed By: #### M 200.1000, L509.7001, L101.9900, L501.6710 #### [facility] [address] [place], [address] Prothrombin Time w/INRon INR Coag (PPP) [Relative time] 1.8 {INR} Normal [facility] Comment on above: Performed By: #### L 300.3900 #### [facility] [address] [place], [address] PT Coag (PPP) [Time] 20.9 s High 11.7-14.9 [facility] Comment on above: Performed By: #### L 300.3900 #### [facility] [address] [place], [address] Trough vancomycin levelOrder ed By: Marta Black on 09-03-2024 Vancomycin trough [Mass/Vol] 8.2 ug/mL 5.0-15.0 [facility] Comment on above: Recommended goal tro [...] therapy recommended for serious lifethreatening infections include:- Abqvijvugz-Vwcdtvenzrdw-Pslhtdwls (Ventilator/Healtcare Associated)-Sepsis PLEASE CONTACT PHARMACY SERVICES (#[id number]) FOR INTERPRETATIONOF RESULTS. Vancomycin, Trough Levelon 0 09-03-2024 VANCO, TROUGH 8.2 ug/mL Normal 5.0-15.0 [facility] Comment on above: Order Comment: Comme nts: Trough to be drawn 30 mins prior to scheduled [id number] Result Comment: Ilya mmended goal trough ranges [...] (Ventilator/Healtcare Associated) -Sepsis PLEASE CONTACT PHARMACY SERVICES (#[id number]) FOR INTERPRETATION OF RESULTS. Performed By: #### M 200.1000, L509.7001, L101.9900, L501.6710 #### [facility] [address] [place], [address] Basic Metabolic Profile (BMP )on 09-02-2024 BUN/CRE 18.9 RATIO Normal 10-20 [facility] Comment on above: Performed By: #### M 200.1000, L509.7001, L101.9900, L501.6710 #### [facility] [address] [place], [address] Calcium [Mass/Vol] 8.5 mg/dL Normal 7.6-11.0 [facility] Comment on above: Performed By: #### M 200.1000, L509.7001, L101.9900, L501.6710 #### [facility] [address] [place], [address] Chloride [Moles/Vol] 105 mmol/L Normal 98-108 [facility] Comment on above: Performed By: #### M 200.1000, L509.7001, L101.9900, L501.6710 #### [facility] [address] [place], [address] CO2 [Moles/Vol] 14.2 mmol/L Low 21.0-32.0 [facility] Comment on above: Performed By: #### M 200.1000, L509.7001, L101.9900, L501.6710 #### [facility] [address] [place], [address] Creatinine [Mass/Vol] 0.75 mg/dL Normal 0.70-1.20 [facility] Comment on above: Performed By: #### M 200.1000, L509.7001, L101.9900, L501.6710 #### [facility] [address] [place], [address] ECRCL 64.10 ml/min Normal 50-250 [facility] Comment on above: Performed By: #### M 200.1000, L509.7001, L101.9900, L501.6710 #### [facility] [address] [place], [address] GAP 15 Normal 5-15 [facility] Comment on above: Performed By: #### M 200.1000, L509.7001, L101.9900, L501.6710 #### [facility] [address] [place], [address] GFR/1.73 sq M.predicted among non-blacks MDRD (S/P/Bld) [Vol rate/Area] 86 mL/min/{1.73_m2} Normal >60 [facility] Comment on above: Result Comment: mL/m in/1.73m2 CKD-EPI Creatinine Equation (2020) Performed By: #### M 200.1000, L509.7001, L101.9900, L501.6710 #### [facility] [address] [place], [id number] Glucose [Mass/Vol] 105 mg/dL High 70-99 [facility] Comment on above: Performed By: #### M 200.1000, L509.7001, L101.9900, L501.6710 #### [facility] [address] [place], [id number] Potassium [Moles/Vol] 4.3 mmol/L Normal 3.3-5.1 [facility] Comment on above: Result Comment: Hemo lysis present, Results??could be affected. ?? Performed By: #### M 200.1000, L509.7001, L101.9900, L501.6710 #### [facility] [address] [place], [id number] Sodium [Moles/Vol] 135 mmol/L Normal 133-145 [facility] Comment on above: Performed By: #### M 200.1000, [id number], L101.9900, [id number] #### [facility] [address] [place], [id number] Urea nitrogen [Mass/Vol] 14 mg/dL Normal 4-19 [facility] Comment on above: Performed By: #### M 200.1000, [id number], L101.9900, [id number] #### [facility] [address] [place], [id number] CBC W/Diff, Automatedon 06-03 25-2024 Absolute Lymph 0.52 X10 3/uL Low 0.83-4.51 [facility] Comment on above: Performed By: #### M 200.1000, [id number], L101.9900, L501.6710 #### [facility] [address] [place], [id number] Absolute Neut 12.1 X10 3/uL High 2.0-7.7 [facility] Comment on above: Performed By: #### M 200.1000, L509.7001, L101.9900, L501.6710 #### [facility] [address] [place], [address] Basophils/100 WBC (Bld) 0.6 % Normal 0-1 [facility] Comment on above: Performed By: #### M 200.1000, L509.7001, L101.9900, L501.6710 #### [facility] [address] [place], [address] Eosinophils/100 WBC (Bld) 2.2 % Normal 0-5 [facility] Comment on above: Performed By: #### M 200.1000, L509.7001, L101.9900, L501.6710 #### [facility] [address] [place], [address] Erythrocyte distribution width (RBC) [Ratio] 17.8 % High 11.6-14.6 [facility] Comment on above: Performed By: #### M 200.1000, L509.7001, L101.9900, L501.6710 #### [facility] [address] [place], [address] Hematocrit (Bld) [Volume fraction] 39.9 % Low 40-54 [facility] Comment on above: Performed By: #### M 200.1000, L509.7001, L101.9900, L501.6710 #### [facility] [address] [place], [address] Hemoglobin (Bld) [Mass/Vol] 11.9 g/dL Low 13.0-16.5 [facility] Comment on above: Performed By: #### M 200.1000, L509.7001, L101.9900, L501.6710 #### [facility] [address] [place], [address] IG% 0.700 Normal 0.0-0.9 [facility] Comment on above: Result Comment: IG% - Immature Granulocytes (promyelocytes, myelocytes and metamyelocytes) > 1% indicates that a LEFT SHIFT is Present. Performed By: #### M 200.1000, L509.7001, L101.9900, L501.6710 #### [facility] [address] [place], [address] Lymphocytes/100 WBC (Bld) 3.8 % Low 19-41 [facility] Comment on above: Performed By: #### M 200.1000, L509.7001, L101.9900, L501.6710 #### [facility] [address] [place], [address] MCH (RBC) [Entitic mass] 24.5 pg Low 27.0-32.0 [facility] Comment on above: Performed By: #### M 200.1000, L509.7001, L101.9900, L501.6710 #### [facility] [address] [place], [address] MCHC (RBC) [Mass/Vol] 29.8 g/dL Low 32-36 [facility] Comment on above: Performed By: #### M 200.1000, L509.7001, L101.9900, L501.6710 #### [facility] [address] [place], [address] MCV (RBC) [Entitic vol] 82.3 fL Normal 80-94 [facility] Comment on above: Performed By: #### M 200.1000, L509.7001, L101.9900, L501.6710 #### [facility] [address] [place], [address] Monocytes/100 WBC (Bld) 4.8 % Normal 0-10 [facility] Comment on above: Performed By: #### M 200.1000, L509.7001, L101.9900, L501.6710 #### [facility] [address] [place], [address] Neutrophils/100 WBC (Bld) 87.9 % High 47-70 [facility] Comment on above: Performed By: #### M 200.1000, L509.7001, L101.9900, L501.6710 #### [facility] [address] [place], [address] Nucleated RBC (Bld) [#/Vol] 0 10*3/uL Normal 0-5 [facility] Comment on above: Performed By: #### M 200.1000, L509.7001, L101.9900, L501.6710 #### [facility] [address] [place], [address] Platelet mean volume (Bld) [Entitic vol] 10.6 fL Normal 6.2-12.0 [facility] Comment on above: Performed By: #### M 200.1000, L509.7001, L101.9900, L501.6710 #### [facility] [address] [place], [address] Platelets (Bld) [#/Vol] 227 10*3/uL Normal 150-450 [facility] Comment on above: Performed By: #### M 200.1000, L509.7001, L101.9900, L501.6710 #### [facility] [address] [place], [address] RBC (Bld) [#/Vol] 4.85 10*6/uL Normal 4.6-6.2 [facility] Comment on above: Performed By: #### M 200.1000, L509.7001, L101.9900, L501.6710 #### [facility] [address] [place], [address] RDW SD 52.3 fl High 35.1-43.9 [facility] Comment on above: Performed By: #### M 200.1000, L509.7001, L101.9900, L501.6710 #### [facility] [address] [place], [address] WBC (Bld) [#/Vol] 13.8 10*3/uL High 4.4-11.0 [facility] Comment on above: Performed By: #### M 200.1000, L509.7001, L101.9900, L501.6710 #### [facility] [address] [place], [address] Prothrombin Time w/INRon INR Coag (PPP) [Relative time] 1.9 {INR} Normal [facility] Comment on above: Performed By: #### M 200.1000, L509.7001, L101.9900, L501.6710 #### [facility] [address] [place], [address] PT Coag (PPP) [Time] 22.1 s High 11.7-14.9 [facility] Comment on above: Performed By: #### M 200.1000, L509.7001, L101.9900, L501.6710 #### [facility] [address] [place], [address] RESPIRATORY PANEL MOLECULARo n 09-02-2024 RP PANEL ADENOVIRUS Not Detected INFLUENZA A Not Detected INFLUENZA A (SUBTYPE H1) Not Detected INFLUENZA A (SUBTYPE H3) Not Detected INFLUENZA B Not Detected HUMAN METAPHNEUMO Not Detected PARAINFLUENZA 1 Not Detected PARAINFLUENZA 2 Not Detected PARAINFLUENZA 3 Not Detected PARAINFLUENZA 4 Not Detected RHINOVIRUS Not Detected RSV A Not Detected RSV B Not Detected Normal [facility] Comment on above: Performed By: #### M 200.1000, L509.7001, L101.9900, L501.6710 #### [facility] [address] [place], [id number] Absolute lymphocyte countOrd ered By: Inderjit Gillespie on 09-01-2024 Lymphocytes Auto (Unsp spec) [#/Vol] 0.62 10*3/uL Low 0.83-4.51 [facility] Absolute neutrophil countOrd ered By: Inderjit Gillespie on 09-01-2024 Neutrophils (Bld) [#/Vol] 11.3 10*3/uL High 2.0-7.7 [facility] Anion gap in Serum or Plasma Ordered By: Inderjit Gillespie on 09-01-2024 Anion gap [Moles/Vol] 10 mmol/L 5-15 [facility] Automated lymphocyte count a s percentage of total leukocytesOrdered By: Inderjit Gillespie on 09-01-2024 Lymphocytes/100 WBC Auto (Unsp spec) 4.8 % Low 19-41 [facility] BUN/creatinine ratioOrdered By: Inderjit Gillespie on 09-01-2024 Urea nitrogen/Creatinine [Mass ratio] 21.6 mg/mg High 10-20 [facility] Basic Metabolic Profile (BMP )on 09-01-2024 BUN/CRE 21.6 RATIO High 10-20 [facility] Comment on above: Performed By: #### M 200.1000, L509.7001, L101.9900, L501.6710 #### [facility] [address] [place], [address] Calcium [Mass/Vol] 8.8 mg/dL Normal 7.6-11.0 [facility] Comment on above: Performed By: #### M 200.1000, L509.7001, L101.9900, L501.6710 #### [facility] [address] [place], [address] Chloride [Moles/Vol] 105 mmol/L Normal 98-108 [facility] Comment on above: Performed By: #### M 200.1000, L509.7001, L101.9900, L501.6710 #### [facility] [address] [place], [address] CO2 [Moles/Vol] 24.3 mmol/L Normal 21.0-32.0 [facility] Comment on above: Performed By: #### M 200.1000, L509.7001, L101.9900, L501.6710 #### [facility] [address] [place], [address] Creatinine [Mass/Vol] 0.77 mg/dL Normal 0.70-1.20 [facility] Comment on above: Performed By: #### M 200.1000, L509.7001, L101.9900, L501.6710 #### [facility] [address] [place], [address] ECRCL 68.71 ml/min Normal 50-250 [facility] Comment on above: Performed By: #### M 200.1000, L509.7001, L101.9900, L501.6710 #### [facility] [address] [place], [address] GAP 10 Normal 5-15 [facility] Comment on above: Performed By: #### M 200.1000, L509.7001, L101.9900, L501.6710 #### [facility] [address] [place], [address] GFR/1.73 sq M.predicted among non-blacks MDRD (S/P/Bld) [Vol rate/Area] 86 mL/min/{1.73_m2} Normal >60 [facility] Comment on above: Result Comment: mL/m in/1.73m2 CKD-EPI Creatinine Equation (2020) Performed By: #### M 200.1000, L509.7001, L101.9900, L501.6710 #### [facility] [address] [place], [address] Glucose [Mass/Vol] 112 mg/dL High 70-99 [facility] Comment on above: Performed By: #### M 200.1000, L509.7001, L101.9900, L501.6710 #### [facility] [address] [place], [address] Potassium [Moles/Vol] 3.7 mmol/L Normal 3.3-5.1 [facility] Comment on above: Performed By: #### M 200.1000, L509.7001, L101.9900, L501.6710 #### [facility] [address] [place], [address] Sodium [Moles/Vol] 139 mmol/L Normal 133-145 [facility] Comment on above: Performed By: #### M 200.1000, L509.7001, L101.9900, L501.6710 #### [facility] [address] [place], [address] Urea nitrogen [Mass/Vol] 17 mg/dL Normal 4-19 [facility] Comment on above: Performed By: #### M 200.1000, L509.7001, L101.9900, L501.6710 #### [facility] [address] [place], [address] Basophil percentageOrdered B y: Inderjit Gillespie on 09-01-2024 Basophils/100 WBC (Bld) 0.4 % 0-1 [facility] Bilirubin Test strip Ql (U)O rdered By: Inderjit Gillespie on 09-01-2024 Bilirubin Ql (U) Negative Negative [facility] Brain/Head without Contrasto n 09-01-2024 Brain/Head without Contrast [facility] Imaging Services [address] [place] [address] Brain/Head without Contrast MR#: [id number] Acct: [id number] Name: ROBY FLORES Rep #: [id number] : 1935 M 89 From: Jose harris MD PCP: Dr. Stas Mora MD Status: REG ER Study: Brain/Head without Contrast Date of Exam: 08/21 05/17 Exam# [id number] Ordering Dr: Inderjit Gillespie MD PROCEDURE: BRAIN/HEAD [...] of the left maxillary sinus. Reading Location: [place] [address] CC: Dr. Inderjit Gillespie MD; Dr. Stas Mora MD Cadd Drafter: Signed Normal [facility] CBC W/Diff, Automatedon 08-21 Absolute Lymph 0.62 X10 3/uL Low 0.83-4.51 [facility] Comment on above: Performed By: #### M 200.1000, L509.7001, L101.9900, L501.6710 #### [facility] [address] [place], [address] Absolute Neut 11.3 X10 3/uL High 2.0-7.7 [facility] Comment on above: Performed By: #### M 200.1000, L509.7001, L101.9900, L501.6710 #### [facility] [address] [place], [address] Basophils/100 WBC (Bld) 0.4 % Normal 0-1 [facility] Comment on above: Performed By: #### M 200.1000, L509.7001, L101.9900, L501.6710 #### [facility] [address] [place], [address] Eosinophils/100 WBC (Bld) 1.2 % Normal 0-5 [facility] Comment on above: Performed By: #### M 200.1000, L509.7001, L101.9900, L501.6710 #### [facility] [address] [place], [address] Erythrocyte distribution width (RBC) [Ratio] 17.2 % High 11.6-14.6 [facility] Comment on above: Performed By: #### M 200.1000, L509.7001, L101.9900, L501.6710 #### [facility] [address] [place], [address] Hematocrit (Bld) [Volume fraction] 36.8 % Low 40-54 [facility] Comment on above: Performed By: #### M 200.1000, L509.7001, L101.9900, L501.6710 #### [facility] [address] [place], [address] Hemoglobin (Bld) [Mass/Vol] 11.6 g/dL Low 13.0-16.5 [facility] Comment on above: Performed By: #### M 200.1000, L509.7001, L101.9900, L501.6710 #### [facility] [address] [place], [address] IG% 0.400 Normal 0.0-0.9 [facility] Comment on above: Result Comment: IG% - Immature Granulocytes (promyelocytes, myelocytes and metamyelocytes) > 1% indicates that a LEFT SHIFT is Present. Performed By: #### M 200.1000, L509.7001, L101.9900, L501.6710 #### [facility] [address] [place], [id number] Lymphocytes/100 WBC (Bld) 4.8 % Low 19-41 [facility] Comment on above: Performed By: #### M 200.1000, L509.7001, L101.9900, L501.6710 #### [facility] [address] [place], [address] MCH (RBC) [Entitic mass] 24.6 pg Low 27.0-32.0 [facility] Comment on above: Performed By: #### M 200.1000, L509.7001, L101.9900, L501.6710 #### [facility] [address] [place], [address] MCHC (RBC) [Mass/Vol] 31.5 g/dL Low 32-36 [facility] Comment on above: Performed By: #### M 200.1000, L509.7001, L101.9900, L501.6710 #### [facility] [address] [place], [address] MCV (RBC) [Entitic vol] 78.0 fL Low 80-94 [facility] Comment on above: Performed By: #### M 200.1000, L509.7001, L101.9900, L501.6710 #### [facility] [address] [place], [address] Monocytes/100 WBC (Bld) 5.7 % Normal 0-10 [facility] Comment on above: Performed By: #### M 200.1000, L509.7001, L101.9900, L501.6710 #### [facility] [address] [place], [address] Neutrophils/100 WBC (Bld) 87.5 % High 47-70 [facility] Comment on above: Performed By: #### M 200.1000, L509.7001, L101.9900, L501.6710 #### [facility] [address] [place], [address] Nucleated RBC (Bld) [#/Vol] 0 10*3/uL Normal 0-5 [facility] Comment on above: Performed By: #### M 200.1000, L509.7001, L101.9900, L501.6710 #### [facility] [address] [place], [address] Platelet mean volume (Bld) [Entitic vol] 9.4 fL Normal 6.2-12.0 [facility] Comment on above: Performed By: #### M 200.1000, L509.7001, L101.9900, L501.6710 #### [facility] [address] [place], [address] Platelets (Bld) [#/Vol] 258 10*3/uL Normal 150-450 [facility] Comment on above: Performed By: #### M 200.1000, L509.7001, L101.9900, L501.6710 #### [facility] [address] [place], [address] RBC (Bld) [#/Vol] 4.72 10*6/uL Normal 4.6-6.2 [facility] Comment on above: Performed By: #### M 200.1000, L509.7001, L101.9900, L501.6710 #### [facility] [address] [place], [address] RDW SD 48.2 fl High 35.1-43.9 [facility] Comment on above: Performed By: #### M 200.1000, L509.7001, L101.9900, L501.6710 #### [facility] [address] [place], [address] WBC (Bld) [#/Vol] 12.9 10*3/uL High 4.4-11.0 [facility] Comment on above: Performed By: #### M 200.1000, L509.7001, L101.9900, L501.6710 #### [facility] [address] [place], [address] CNPNon 09-01-2024 CNPN Telephone (PHMEWO) ROBY FLORES ([id number]) 1935 M Date Time Provider Department 09/01/24 RUSSELL AGUAYO During your visit today, we recorded the following information about you: Russell Aguayo [facility] 09/01/2024 10:01 AM Signed PCP reached out [...] affordable alvarado using Good Rx coupons. At [facility] (his current pharmacy), he can get a 1 mo supply for ~$30. If he switches the prescription to [facility], he can get a 1 mo supply for ~$20. See coupons below. Rivastigmine patches are also available via [employer]. It appears the cheapest option is through [facility], in which he can get 30 patches for $52. Coupon also below. Sending to PCP to review and provide patient with coupon card information. Russell Aguayo, Saúl, BCPS Primary Care Clinical Pharmacist Memantine coupon at [facility] Memantine coupon at [facility] Rivastigmine patches coupon at [facility] Luciana Cisneros MD 09/01/2024 1:27 PM Signed Rahul Chau, Staff please let patient know what the pharmacist as opined on. 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, [address] COVID-19 virus antigen assay Ordered By: Marta Black on 09-01-2024 SARS-CoV-2 (COVID-19) Ag IA.rapid Ql (Resp) [facility] CRPon 09-01-2024 C-REACTIVE PROT 26.80 mg/L High 0.0-3.0 [facility] Comment on above: Performed By: #### M 200.1000, L509.7001, L101.9900, L501.6710 #### [facility] [address] [place], [place], [address] Carbon dioxide, total [Moles /volume] in Central venous bloodOrdered By: Inderjit Gillespie on 09-01-2024 CO2 [Moles/Vol] 24.3 mmol/L 21.0-32.0 [facility] Chest 1 View (Portable)on Chest 1 View (Portable) [facility] Imaging Services [address] [place], [place] [address] Chest 1 View (Portable) MR#: [id number] Acct: [id number] Name: ROBY FLORES Rep #: [id number] : 1935 M 89 From: Jose harris MD PCP: Dr. Stas Mora MD Status: REG ER Study: Chest 1 View (Portable) Date of Exam: 09/01/24 Exam# [id number] Ordering Dr: Inderjit Gillespie MD PROCEDURE: CHEST [...] No acute abnormality is seen. Reading Location: [place] [address] CC: Dr. Inderjit Gillespie MD; Dr. Stas Mora MD Cadd Drafter: Signed Normal [facility] Chloride assayOrdered By: Aires Gillespie on 09-01-2024 Chloride [Moles/Vol] 105 mmol/L 98-108 [facility] Emergency Department Summary on 09-01-2024 Emergency Department Summary [facility] Medical Records Department [address] [place] [address] Emergency Department Summary 09/01/24 MR#: [id number] Acct: [id number] Name: ROBY FLORES Rep #: [id number] : 1935 89 From: Inderjit Gillespie MD [...] shoulders elbows and wrist. 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 Neurologically he is awake alert. Answering [...] Air 09/01/24 (more content not included)... Normal [facility] Eosinophil percentageOrdered By: Inderjit Gillespie on 09-01-2024 Eosinophils/100 WBC (Bld) 1.2 % 0-5 [facility] Erythrocyte Sed Rateon 09-01 SED RATE 2 mm/hr Normal 0-20 [facility] Comment on above: Performed By: #### M 200.1000, L509.7001, L101.9900, L501.6710 #### [facility] [address] [place], [address] Erythrocyte distribution wid th ratioOrdered By: Inderjit Gillespie on 09-01-2024 Erythrocyte distribution width (RBC) [Ratio] 17.2 % High 11.6-14.6 [facility] Erythrocyte distribution wid th standard deviationOrdered By: Inderjit Gillespie on 09-01-2024 Erythrocyte distribution width (RBC) [Ratio] 48.2 fl High 35.1-43.9 [facility] Erythrocyte sedimentation ra teOrdered By: Marta Black on 09-01-2024 ESR (Bld) [Velocity] 2 mm/h 0-20 [facility] Glomerular filtration rate ( GFR) estimation/1.73 sq m using serum, plasma, or whole bOrdered By: Inderjit Gillespie on 09-01-2024 GFR/1.73 sq M.predicted among non-blacks MDRD (S/P/Bld) [Vol rate/Area] 86 mL/min/{1.73_m2} >60 [facility] Comment on above: mL/min/1.73m2 CKD-EP I Creatinine Equation (2020) H AND P Exam - [facility] 09-01-2024 H&P Exam - Hospitalist [facility] Medical Records Department [address] [place] [address] H P Exam - Hospitalist 09/01/24 1018 MR#: [id number] Acct: [id number] Name: ROBY FLORES Rep #: [id number] : 1935 89 From: Kathy Wells MD PCP: Dr. Stas Mora MD Status:ADM GERMAN [place] [facility] HPI - General General Date of Admission: [...] in the ED were BP of 180/89, [place] of 87, RR of 18 and temp [...] debility and weakness due to mechanical fall. [facility] Medical History Chronic anticoagulation TIA (transient ischemic [...] 99 Oxy (more content not included)... Normal [facility] Hematocrit Auto (Bld) [Volum e fraction]Ordered By: Inderjit Gillespie on 09-01-2024 Hematocrit (Bld) [Volume fraction] 36.8 % Low 40-54 [facility] Hemoglobin measurementOrdere d By: Inderjit Gillespie on 09-01-2024 Hemoglobin (Bld) [Mass/Vol] 11.6 g/dL Low 13.0-16.5 [facility] Hips B/L min 2 views w/ Pelv adolfo 09-01-2024 Hips B/L min 2 views w/ Pelvis [facility] Imaging Services [address] [place], [place] [id number] Hips B/L min 2 views w/ Pelvis MR#: [id number] Acct: [id number] Name: ROBY FLORES Rep #: [id number] : 1935 M 89 From: Jose harris MD PCP: Dr. Stas Mora MD Status: REG ER Study: Hips B/L min 2 views w/ Pelvis Date of Exam: 0 09/01/24 Exam# [id number] Ordering Dr: Inderjit Gillespie MD PROCEDURE: HIPS [...] No fracture or dislocation present. Reading Location: [place] [address] CC: Dr. Inderjit Gillespie MD; Dr. Stas Mora MD Cadd Drafter: Signed Normal [facility] Immature granulocytes/100 WB C Auto (Bld)Ordered By: Inderjit Gillespie on 09-01-2024 Immature granulocytes/100 WBC (Bld) 0.400 % 0.0-0.9 [facility] Comment on above: IG% - Immature Granu locytes (promyelocytes, myelocytes and metamyelocytes) > 1% indicates that a LEFT SHIFT is Present. International normalized rat io (INR) calculationOrdered By: Inderjit Gillespie on 09-01-2024 INR Coag (Bld) [Relative time] 1.8 {INR} [facility] Ketones Test strip Ql (U)Ord ered By: Inderjit Gillespie on 09-01-2024 Ketones Ql (U) Negative Negative [facility] L509.7001on 09-01-2024 Procalcitonin 0.07 ng/mL Normal <=0.10 [facility] Comment on above: Result Comment: Inte [...] #### M 200.1000, L509.7001, L101.9900, L501.6710 #### [facility] [address] [place], [address] MCV (mean corpuscular volume ) determinationOrdered By: Inderijt Gillespie on 09-01-2024 MCV (RBC) [Entitic vol] 78.0 fL Low 80-94 [facility] Mean corpuscular hemoglobin (MCH) determinationOrdered By: Inderjit Gillespie on 09-01-2024 MCH (RBC) [Entitic mass] 24.6 pg Low 27.0-32.0 [facility] Mean corpuscular hemoglobin concentration (MCHC) determinationOrdered By: Inderjit Gillespie on 09-01-2024 MCHC (RBC) [Mass/Vol] 31.5 g/dL Low 32-36 [facility] Mean platelet volume determi nationOrdered By: Inderjit Gillespie on 09-01-2024 Platelet mean volume (Bld) [Entitic vol] 9.4 fL 6.2-12.0 [facility] Microscopic analysis of urin e for red blood cells (RBC)Ordered By: Inderjit Gillespie on 09-01-2024 Microscopic analysis of urine for red blood cells (RBC) 0 SEEN /hpf 0-5 [facility] Monocyte percentageOrdered B y: Inderjit Gillespie on 09-01-2024 Monocytes/100 WBC (Bld) 5.7 % 0-10 [facility] Mucus LM Ql (Urine sed)Order ed By: Inderjit Gillespie on 09-01-2024 Mucus Ql (Urine sed) 0 SEEN /hpf [facility] Neutrophil percentageOrdered By: Inderjit Gillespie on 09-01-2024 Neutrophils/100 WBC (Bld) 87.5 % High 47-70 [facility] Nitrite Test strip Ql (U)Ord ered By: Inderjit Gillespie on 09-01-2024 Nitrite Ql (U) Negative Negative [facility] Nucleated red blood cell per centageOrdered By: Inderjit Gillespie on 09-01-2024 Nucleated RBC/100 WBC (Bld) [Ratio] 0 % 0-5 [facility] Platelet countOrdered By: Aries Gillespie on 09-01-2024 Platelets (Bld) [#/Vol] 258 10*3/uL 150-450 [facility] Potassium measurement (mass/ volume)Ordered By: Inderjit Gillespie on 09-01-2024 Potassium (Unsp spec) [Mass/Vol] 3.7 mmol/L 3.3-5.1 [facility] Procalcitonin [Mass/volume] in Serum or Plasma by ImmunoassayOrdered By: Marta Black on 09-01-2024 Procalcitonin IA [Mass/Vol] 0.07 ng/mL <0.11 [facility] Comment on above: Interpretation:<0.10 -0.25 ng/mL: [...] Protein Ql (U) 15 mg/dl High Negative [facility] Prothrombin Time w/INRon INR Coag (PPP) [Relative time] 1.8 {INR} Normal [facility] Comment on above: Performed By: #### M 200.1000, L509.7001, L101.9900, L501.6710 #### [facility] [address] [place], [address] PT Coag (PPP) [Time] 21.4 s High 11.7-14.[address] [facility] Comment on above: Performed By: #### M 200.1000, L509.7001, L101.9900, L501.6710 #### [facility] [place], [address] Prothrombin timeOrdered By: Inderjit Gillespie on 09-01-2024 PT Coag (PPP) [Time] 21.4 s High 11.7-14.9 [facility] RBC Auto (Bld) [#/Vol]Ordere d By: Inderjit Gillespie on 09-01-2024 RBC (Bld) [#/Vol] 4.72 10*6/uL 4.6-6.2 [facility] Respiratory pathogens detect ion panel by molecular detection methodOrdered By: Marta Black on 09-01-2024 Respiratory pathogens DNA and RNA panel LOLI+probe (Resp) [facility] Serum creatinine measurement (mass/volume)Ordered By: Inderjit Gillespie on 09-01-2024 Creatinine [Mass/Vol] 0.77 mg/dL 0.70-1.20 [facility] Serum glucose measurement (m ass/volume)Ordered By: Inderjit Gillespie on 09-01-2024 Glucose [Mass/Vol] 112 mg/dL High 70-99 [facility] Serum or plasma C reactive p rotein measurement (mass/volume)Ordered By: Marta Black on 09-01-2024 CRP [Mass/Vol] 26.80 mg/L High 0.0-3.0 [facility] Serum or plasma calcium alvaro urement (mass/volume)Ordered By: Inderjit Gillespie on 09-01-2024 Calcium [Mass/Vol] 8.8 mg/dL 7.6-11.0 [facility] Serum or plasma urea nitroge n measurement (mass/volume)Ordered By: Inderjit Gillespie on 09-01-2024 Urea nitrogen [Mass/Vol] 17 mg/dL 4-19 [facility] Sodium levelOrdered By: Inderjit Gillespie on 09-01-2024 Sodium [Moles/Vol] 139 mmol/L 133-145 [facility] Squamous epithelial cells de tection in urine sediment by light microscopyOrdered By: Inderjit Gillespie on 09-01-2024 Epithelial cells.squamous LM Ql (Urine sed) 0 SEEN /hpf 0-5 [facility] Urinalysis, Completeon 09-01 BACTERIA 0 SEEN Normal None Seen [facility] Comment on above: Order Comment: CLEAN CATCH Performed By: #### L 400.0001 #### [facility] [address] [place], [address] EPI,SQUAMOUS 0 SEEN Normal 0-5 [facility] Comment on above: Order Comment: CLEAN CATCH Performed By: #### L 400.0001 #### [facility] [address] [place], [address] Mucus Ql (Urine sed) 0 SEEN Normal [facility] Comment on above: Order Comment: CLEAN CATCH Performed By: #### L 400.0001 #### [facility] [address] [place], [address] RBC 0 SEEN Normal 0-5 [facility] Comment on above: Order Comment: CLEAN CATCH Performed By: #### L 400.0001 #### [facility] [address] [place], [address] WBC 0 SEEN Normal 0-5 [facility] Comment on above: Order Comment: CLEAN CATCH Performed By: #### L 400.0001 #### [facility] [address] [place], [address] Urine clarityOrdered By: Mario Gillespie on 09-01-2024 Clarity (U) Clear Clear [facility] Urine color determinationOrd ered By: Inderjit Gillespie on 09-01-2024 Color (U) Yellow Yellow [facility] Urine glucose detectionOrder ed By: Inderjit Gillespie on 09-01-2024 Glucose Ql (U) Normal mg/dl Normal [facility] Urine leukocyte esterase det ection by dipstickOrdered By: Inderjit Gillespie on 09-01-2024 Leukocyte esterase Test strip Ql (U) Negative Negative [facility] Urine pHOrdered By: Inderjit pack on 09-01-2024 pH (U) 8.0 [pH] 5.0 - 8.0 [facility] Urine sediment bacteria coun t by microscopy (number/high power field)Ordered By: Inderjit Gillespie on 09-01-2024 Bacteria LM.HPF (Urine sed) [#/Area] 0 /[HPF] None Seen [facility] Urine specific gravity measu rementOrdered By: Inderjit Gillespie on 09-01-2024 Specific gravity (U) [Rel density] 1.010 1.002-1.03 0 [facility] Urine urobilinogen measureme ntOrdered By: Inderjit Gillespie on 09-01-2024 Urobilinogen Ql (U) 4 mg/dl High Normal [facility] White blood cell (WBC) count Ordered By: Inderjit Gillespie on 09-01-2024 WBC (Bld) [#/Vol] 12.9 10*3/uL High 4.4-11.0 [facility] White blood cell countOrdere d By: Inderjit Gillespie on 09-01-2024 White blood cell count 0 SEEN /hpf 0-5 [facility] CNOVon 08-31-2024 CNOV Office Visit ([place] ) ROBY FLORES ([id number]) 1935 M Date Time Provider Department 08/31/24 [...] and believing his brother, who lives in [place], was present. 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 Additionally, [...] tablet wa (more content not included)... Normal [facility] Gene 08-31-2024 [facility] Telephone (TIAE) ROBY FLORES ([id number]) 1935 M Date Time Provider Department 08/31/24 CORETTA JALLOH During your visit today, we recorded the following information about you: Coretta Jalloh RPh 08/31/2024 2:13 PM Signed [facility] Anticoagulation Clinic Anticoagulation Episode Summary Anticoagulation Care Providers Provider Role Specialty Phone number Stas Mora MD Referring Family Medicine [phone] Roby Flores is a 89 year old [...] No Known Allergies Indication for Warfarin: 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 Coretta Jalloh RPh 09/28/2024 11:30 AM Signed Per TE on 09/21, pt is in [facility] for rehab. He has been for for nearly 3 weeks now. Will check back next week before we call Maria Guadalupe. Will watch for notes of discharge. 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*08/31/2024 Encounter Status:Closed by CORETTA JALLOH on 08/31/24 Normal [facility] PT panel Coag (PPP)on 2024 INR Coag (PPP) [Relative time] 1.9 {INR} High 0.9-1.3 [facility] Comment on above: Order Comment: Stone parmar Type: BLOOD SPECIMENOrdering Facility: [facility] Address: [address] [place] [address] Result Comment: Mary min K Antagonist (VKA) Therapeutic Range: INR 2 to 3 (Target INR of 2.5) Note: For patients treated with VKA drugs, such as warfarin, the [place] [employer] 2012 Guideline recommends [...] Chest 2012, 141:7S-47S Avel RA, et al. [facility] 2017, 70: 252-289 Performed By: #### 3 4528-0 ####[facility] [id number] [place] [address] [place] PT Coag (PPP) [Time] 19.2 s High <13.1 [facility] Comment on above: Order Comment: Speci men Type: BLOOD SPECIMENOrdering Facility: [facility] Address: [address], [place] [address] Performed By: #### 3 4528-0 ####[facility] BERNICE FAULKNER [id number] [place] [id number] [place] CNPMarizol 08-03-2024 CNPN Telephone (PHAMTE) ROBY FLORES ([id number]) 1935 M Date Time Provider Department 08/03/24 CORETTA JALLOH During your visit today, we recorded the following information about you: Coretta Jalloh [facility] 08/03/2024 10:52 AM Signed [facility] Anticoagulation Clinic Anticoagulation Episode Summary Anticoagulation Care Providers Provider Role Specialty Phone number Stas Mora MD Referring Family Medicine [phone] Roby Radha Flores is a 88 year [...] ALLERGIES No Known Allergies Indication for Warfarin: assisted current use of 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 Coretta Jalloh [facility] Clinical Pharmacist, Pharmacy Anticoagulation Clinic Pharmacy Anticoagulation Clinic Pager: [phone]. Adrian (Healthcare IT)Elana 08/03/2024 11:01 AM Signed PATIENT CALL Patient [...] 08/31/2024 Caregiver verbalized understanding. Will route to [facility] as FYI. Elana Campbell ([employer] T[employer] Repairer) Coretta Jalloh RPh 08/03/2024 11:20 AM Signed I have reviewed the below recommendations and agree with plan. 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 assisted current use of anticoagulant [Z79.01]09/22/2016 Paroxysmal atrial fibrillation (HCC) [I48.0] 09/22/2016 Hyperlipidemia [E78.5] 08/26/2022 Encounter Status:Closed by CORETTA JALLOH on 08/03/24 Normal [facility] PT panel Coag (PPP)on 2024 INR Coag (PPP) [Relative time] 2.5 {INR} High 0.9-1.3 [facility] Comment on above: Order Comment: Speci men Type: BLOOD SPECIMENOrdering Facility: [facility] Address: [address] [place] [address] Result Comment: Mary min K Antagonist (VKA) Therapeutic Range: INR 2 to 3 (Target INR of 2.5) Note: For patients treated with VKA drugs, such as warfarin, the [place] [employer] 2012 Guideline recommends [...] Performed By: #### 3 4528-0 ####[facility] [id number] [place] [address] [place] PT Coag (PPP) [Time] 24.3 s High <13.1 [facility] Comment on above: Order Comment: Speci men Type: BLOOD SPECIMENOrdering Facility: [facility] Address: [address] [place] [address] Performed By: #### 3 4528-0 ####[facility] [id number] [place] [address] [place] CNOVon 07-28-2024 [facility]Y FLORES ([id number]) 1935 M Date Time Provider Department 07/28/24 [...] Coronary atherosclerosis of unspecified type of vessel, [place] or graft Coronary artery disease Other and [...] Past Histories independently gathered by the clinical bilingual patient support caseworker and the remaining scribed note accurately describes [...] - Fully Assessed Reason for Visit: Lump [90793] Cmt: Elbow Primary Visit Diagnosis:Bursitis of right elbow, unspecified bursa [M70.31] Prescriptions as of 07/28/2024 - memantine (NAMENDA) 10 mg tablet Take 1 tablet by mouth two times a day. - atorvastatin (LIPITOR) 40 mg tablet Take 1 tablet by mouth daily at bedtime. - warfarin (COUMADIN) 2.5 mg tablet Take as directed (more content not included)... 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 [Z79.01]09/22/2016 Paroxysmal atrial fibrillation (HCC) [I48.0] 09/22/2016 Hyperlipidemia [E78.5] 08/26/2022 Encounter Status:Closed by WENDY FAULKNER on 07/18/24 Normal [facility] CNPNon 07-06-2024 CNPN Telephone (The Finance ScholarMTE) ROBY FLORES ([id number]) 1935 M Date Time Provider Department 07/06/24 CORETTA JALLOH During your visit today, we recorded the following information about you: Coretta Jalloh RPh 07/06/2024 10:16 AM Signed [facility] Anticoagulation Clinic Anticoagulation Episode Summary Anticoagulation Care Providers Provider Role Specialty Phone number Stas Mora MD Referring Family Medicine [phone] Roby Martinezenter is a 88 year old [...] No Known Allergies Indication for Warfarin: 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 Coretta Jalloh [facility] Clinical Pharmacist, Pharmacy Anticoagulation Clinic Pharmacy Anticoagulation Clinic Pager: [phone]. 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 [Z79.01]09/22/2016 Paroxysmal atrial fibrillation (HCC) [I48.0] 09/22/2016 Hyperlipidemia [E78.5] 08/26/2022 Encounter Status:Closed by CORETTA JALLOH on 07/06/24 Normal [facility] PT panel Coag (PPP)on 2024 INR Coag (PPP) [Relative time] 2.1 {INR} High 0.9-1.3 [facility] Comment on above: Order Comment: Speci men Type: BLOOD SPECIMENOrdering Facility: [facility] Address: [address] [place] [address] Result Comment: Mary min K Antagonist (VKA) Therapeutic Range: INR 2 to 3 (Target INR of 2.5) Note: For patients treated with VKA drugs, such as warfarin, the [place] [employer] 2012 Guideline recommends [...] Chest 2012, 141:7S-47S Avel CARDONA, et al. [facility] 2017, 70: 252-289 Performed By: #### 3 4528-0 ####[facility] [id number] [place] [address] [place] PT Coag (PPP) [Time] 21.0 s High <13.1 [facility] Comment on above: Order Comment: Speci men Type: BLOOD SPECIMENOrdering Facility: [facility] Address: [address] [place] [address] Performed By: #### 3 4528-0 ####[facility] [id number] [address] [place] CNPMarizol 06-29-2024 CNPN Telephone (PHAMTE) ROBY FLORES ([id number]) 1935 M Date Time Provider Department 06/29/24 CORETTA JALLOH During your visit today, we recorded the following information about you: Coretta Jalloh RPh 06/29/2024 9:54 AM Signed [facility] Anticoagulation Clinic Anticoagulation Episode Summary Anticoagulation Care Providers Provider Role Specialty Phone number Stas Mora MD Referring Family Medicine [phone] Roby Radha Flores is a 88 year [...] No Known Allergies Indication for Warfarin: 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 Paroxysmal atrial fibrillation (hcc) Anticoagulation Episode Summary Current INR goal: 2.0-3.0 Assessment: INR result of 2.5 is therapeutic Plan: Current Warfarin Dosing As of 06/29/2024 Full warfarin instructions: 1.5 mg every Thu, Sat; 2.5 mg all other days Sent Tripcover message Advised patient to continue current weekly dose as noted above Next home INR check scheduled on 07/06/2024 Patient advised to call the PAC with any medication changes, bleeding/bruising concerns, recent changes in vitamin k consumption, if any procedures are coming up, if they have been ill or in the hospital, and if they have missed any doses of warfarin. Coretta Jalloh [facility] Clinical Pharmacist, Pharmacy Anticoagulation Clinic Pharmacy Anticoagulation Clinic Pager: [phone]. 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 assisted current use of anticoagulant [Z79.01]09/22/2016 Paroxysmal atrial fibrillation (HCC) [I48.0] 09/22/2016 Hyperlipidemia [E78.5] 08/26/2022 Encounter Status:Closed by CORETTA JALLOH on 06/29/24 Normal [facility] PT panel Coag (PPP)on 2024 INR Coag (PPP) [Relative time] 2.5 {INR} High 0.9-1.3 [facility] Comment on above: Order Comment: Speci men Type: BLOOD SPECIMENOrdering Facility: [facility] Address: [address] [place] [address] Result Comment: Mary min K Antagonist (VKA) Therapeutic Range: INR 2 to 3 (Target INR of 2.5) Note: For patients treated with VKA drugs, such as warfarin, the [place] [employer] 2012 Guideline recommends [...] Performed By: #### 3 4528-0 ####[facility] [id number] [place] [address] [place] PT Coag (PPP) [Time] 24.4 s High <13.1 [facility] Comment on above: Order Comment: Speci men Type: BLOOD SPECIMENOrdering Facility: [facility] Address: [address] [place] [address] Performed By: #### 3 4528-0 ####[facility] [id number] [place] [address] [place] CNOVon 06-01-2024 CNOV Office Visit ([place] ) ROBY FLORES ([id number]) 1935 M Date Time Provider Department 06/01/24 3:00 PM LUCIANA CISNEROS During your visit today, we recorded the following information about you: Pulse Blood pressure Weight Height 46/minute 132/60 73.8 kg 1.819 m Luciana Cisneros MD 07/14/2024 4:10 PM Addendum [facility] Initial Consult [...] not know 911 Social History: Primary language: Mauritanian Marital Status: Single Living situation: Home w/ SO Socially engaged? (participates in activities such as clubs, roman catholic, community center, sports, games, visiting friends/relatives, etc?): They go out to eat sometimes, not as often, most of the time they order stuff and pick it up at home. Caregiver [place] and Stress Are your feeling overwhelmed? 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 Normal [facility] CNOVon 05-26-2024 CNOV Office Visit ([place] ) ROBY FLORES ([id number]) 1935 M Date Time Provider Department 05/26/24 9:20 AM STAS MORA [facility] During your visit today, we recorded the [...] Coronary atherosclerosis of unspecified type of vessel, [place] or graft Coronary artery disease Other and [...] due on (more content not included)... 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 assisted current use of anticoagulant [Z79.01]09/22/2016 Paroxysmal atrial fibrillation (HCC) [I48.0] 09/22/2016 Hyperlipidemia [E78.5] 08/26/2022 Encounter Status:Closed by EDILIA MOSLEY on 05/26/24 Normal [facility] CBC W Auto Differential pane l (Bld)on 05-25-2024 Basophils (Bld) [#/Vol] 0.05 10*3/uL Normal <0.11 [facility] Comment on above: Order Comment: Speci men Type: BLOOD SPECIMENOrdering Facility: [facility] Address: [address] [place] [address] Performed By: #### 5 7021-8 ####[facility] BERNICE FAULKNER [id number] [place] [address] [place] Basophils/100 WBC (Bld) 0.6 % Normal [facility] Comment on above: Order Comment: Speci men Type: BLOOD SPECIMENOrdering Facility: [facility] Address: [address] [place] [address] Performed By: #### 5 7021-8 ####[facility] [id number] [place] [address] [place] Differential cell count method Nom (Bld) Auto Normal [facility] Comment on above: Order Comment: Speci men Type: BLOOD SPECIMENOrdering Facility: [facility] Address: [address] [place] [address] Performed By: #### 5 7021-8 ####[facility] [id number] [place] [address] [place] Eosinophils (Bld) [#/Vol] 0.08 10*3/uL Normal <0.46 [facility] Comment on above: Order Comment: Speci men Type: BLOOD SPECIMENOrdering Facility: [facility] Address: [address] [place] [address] Performed By: #### 5 7021-8 ####[facility] [id number] [place] [address] [place] Eosinophils/100 WBC (Bld) 1.0 % Normal [facility] Comment on above: Order Comment: Speci men Type: BLOOD SPECIMENOrdering Facility: [facility] Address: [address] [place] [address] Performed By: #### 5 7021-8 ####[facility] [id number] [place] [address] [place] Erythrocyte distribution width (RBC) [Ratio] 16.7 % High 11.5-15.0 [facility] Comment on above: Order Comment: Speci men Type: BLOOD SPECIMENOrdering Facility: [facility] Address: [address] [place] [address] Performed By: #### 5 7021-8 ####[facility] KAUSHIK [id number] [place] [address] [place] Hematocrit (Bld) [Volume fraction] 38.7 % Low 39.0-51.0 [facility] Comment on above: Order Comment: Speci men Type: BLOOD SPECIMENOrdering Facility: [facility] Address: [address] [place] [address] Performed By: #### 5 7021-8 ####[facility] [id number] [place] [address] [place] Hemoglobin (Bld) [Mass/Vol] 11.8 g/dL Low 13.0-17.0 [facility] Comment on above: Order Comment: Speci men Type: BLOOD SPECIMENOrdering Facility: [facility] Address: [address] [place] [address] Performed By: #### 5 7021-8 ####[facility] N[facility]LESAMINATARachel [id number] [place] [address] [place] Immature granulocytes (Bld) [#/Vol] 10*3/uL Normal <0.10 [facility] Comment on above: Order Comment: Speci men Type: BLOOD SPECIMENOrdering Facility: [facility] Address: [address] [place] [address] Performed By: #### 5 7021-8 ####[facility]LESFATIMAHA [id number] [place] [address] [place] Immature granulocytes/100 WBC (Bld) 0.2 % Normal [facility] Comment on above: Order Comment: Speci men Type: BLOOD SPECIMENOrdering Facility: [facility] Address: [address] [place] [address] Performed By: #### 5 7021-8 ####[facility] [id number] [place] [address] [place] Lymphocytes (Bld) [#/Vol] 1.50 10*3/uL Normal 1.00-4.00 [facility] Comment on above: Order Comment: Speci men Type: BLOOD SPECIMENOrdering Facility: [facility] Address: [address] [place] [address] Performed By: #### 5 7021-8 ####[facility] [id number] [place] [address] [place] Lymphocytes/100 WBC (Bld) 18.7 % Normal [facility] Comment on above: Order Comment: Speci men Type: BLOOD SPECIMENOrdering Facility: [facility] Address: [address] [place] [address] Performed By: #### 5 7021-8 ####[facility] [id number] [place] [address] [place] MCH (RBC) [Entitic mass] 23.6 pg Low 26.0-34.0 [facility] Comment on above: Order Comment: Speci men Type: BLOOD SPECIMENOrdering Facility: [facility] Address: [address] [place] [address] Performed By: #### 5 7021-8 ####[facility] [id number] [place] [address] [place] MCHC (RBC) [Mass/Vol] 30.5 g/dL Normal 30.5-36.0 [facility] Comment on above: Order Comment: Speci men Type: BLOOD SPECIMENOrdering Facility: [facility] Address: [address] [place] [address] Performed By: #### 5 7021-8 ####[facility] NAPLESNCLI [id number] [place] [address] [place] MCV (RBC) [Entitic vol] 77.6 fL Low 80.0-100.0 [facility] Comment on above: Order Comment: Speci men Type: BLOOD SPECIMENOrdering Facility: [facility] Address: [address] [place] [address] Performed By: #### 5 7021-8 ####[facility] NAPLESNCLIA [id number] [place] [address] [place] Monocytes (Bld) [#/Vol] 0.64 10*3/uL Normal <0.87 [facility] Comment on above: Order Comment: Speci men Type: BLOOD SPECIMENOrdering Facility: [facility] Address: [address] [place] [address] Performed By: #### 5 7021-8 ####[facility] NAPLESNCLIA [id number] [place] [address] [place] Monocytes/100 WBC (Bld) 8.0 % Normal [facility] Comment on above: Order Comment: Speci men Type: BLOOD SPECIMENOrdering Facility: [facility] Address: [address] [place] [address] Performed By: #### 5 7021-8 ####[facility] NAPLESNCLIA [id number] [place] [address] [place] Neutrophils (Bld) [#/Vol] 5.75 10*3/uL Normal 1.45-7.50 [facility] Comment on above: Order Comment: Speci men Type: BLOOD SPECIMENOrdering Facility: [facility] Address: [address] [place] [address] Performed By: #### 5 7021-8 ####[facility] NAPLESNCLIA [id number] [place] [address] [place] Neutrophils/100 WBC (Bld) 71.5 % Normal [facility] Comment on above: Order Comment: Speci men Type: BLOOD SPECIMENOrdering Facility: [facility] Address: [address] [place] [address] Performed By: #### 5 7021-8 ####[facility] DENISEIRRIGONJERMAIN [id number] [place] [address] [place] Nucleated RBC (Bld) [#/Vol] 10*3/uL Normal <0.01 [facility] Comment on above: Order Comment: Speci men Type: BLOOD SPECIMENOrdering Facility: [facility] Address: [address] [place] [address] Performed By: #### 5 7021-8 ####[facility] NAPLESNCLIZZ [id number] [place] [address] [place] Nucleated RBC/100 WBC (Bld) [Ratio] 0.0 /100 WBC Normal [facility] Comment on above: Order Comment: Speci men Type: BLOOD SPECIMENOrdering Facility: [facility] Address: [address] [place] [address] Performed By: #### 5 7021-8 ####[facility] NAPLESNCLIA [id number] [place] [address] [place] Platelet mean volume (Bld) [Entitic vol] 10.6 fL Normal 9.0-12.7 [facility] Comment on above: Order Comment: Speci men Type: BLOOD SPECIMENOrdering Facility: [facility] Address: [address] [place] [address] Performed By: #### 5 7021-8 ####[facility] N[facility]LESNCLIA [id number] [place] [address] [place] Platelets (Bld) [#/Vol] 257 10*3/uL Normal 150-400 [facility] Comment on above: Order Comment: Speci men Type: BLOOD SPECIMENOrdering Facility: [facility] Address: [address] [place] [address] Performed By: #### 5 7021-8 ####[facility] SYSTEMTOWNCLIA [id number] [place] [address] [place] RBC (Bld) [#/Vol] 4.99 10*6/uL Normal 4.20-6.00 [facility] Comment on above: Order Comment: Speci men Type: BLOOD SPECIMENOrdering Facility: [facility] Address: [address] [place] [address] Performed By: #### 5 7021-8 ####[facility] N[facility]LESNCLIA [id number] [place] [address] [place] WBC (Bld) [#/Vol] 8.04 10*3/uL Normal 3.70-11.00 [facility] Comment on above: Order Comment: Speci men Type: BLOOD SPECIMENOrdering Facility: [facility] Address: [address] [place] [address] Performed By: #### 5 7021-8 ####[facility] NAPLESNCLIA [id number] [address] [place] CNPMarizol 05-25-2024 CNPN Telephone (TIAE) ROBY FLORES ([id number]) 1935 M Date Time Provider Department 05/25/24 PAIGE HICKMAN During your visit today, we recorded the following information about you: Paige Hickman RPh 05/25/2024 1:51 PM Signed [facility] Anticoagulation Clinic Anticoagulation Episode Summary Anticoagulation Care Providers Provider Role Specialty Phone number Stas Mora MD Referring Family Medicine [phone] Roby Martinezenter is a 88 year old [...] Sat; 2.5 mg all other days Sent Tripcover message Advised patient to continue current weekly dose as noted above Next INR check due on 06/29/2024 Paige Hickman [facility] Clinical Pharmacist, Pharmacy Anticoagulation Clinic Pharmacy Anticoagulation Clinic Pager: [phone]. 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 [Z79.01]09/22/2016 Paroxysmal atrial fibrillation (HCC) [I48.0] 09/22/2016 Hyperlipidemia [E78.5] 08/26/2022 Encounter Status:Closed by PAIGE HICKMAN on 05/25/24 Normal [facility] Comprehensive metabolic 2000 panelon 05-25-2024 Albumin [Mass/Vol] 4.2 g/dL Normal 3.9-4.9 [facility] Comment on above: Order Comment: Speci men Type: BLOOD SPECIMENOrdering Facility: [facility] Address: [address] [place] [address] Performed By: #### 2 4331-1 ####[facility] LABORATORYCLIA [id number] [place] [address] [place] OF [facility] [id number] [address] [place]#### 87822-8 ####[facility] CENTERLIA [id number] [place] [address] [place] ALP [Catalytic activity/Vol] 138 U/L High 38-113 [facility] Comment on above: Order Comment: Speci men Type: BLOOD SPECIMENOrdering Facility: [facility] Address: [address] [place] [address] Performed By: #### 2 4331-1 ####[facility] LABORATORYCLIA [id number] [address] [id number] [address] [place]#### 86982-2 ####[facility] [id number] [address] [place] ALT [Catalytic activity/Vol] 17 U/L Normal 10-54 [facility] Comment on above: Order Comment: Speci men Type: BLOOD SPECIMENOrdering Facility: [facility] Address: [address] [place] [address] Performed By: #### 2 4331-1 ####[facility] LABORATORYCLIA [id number] [address] [id number] [address] [place]#### 99261-4 ####[facility]ITAL[facility] [id number] [place] [address] [place] Anion gap [Moles/Vol] 11 mmol/L Normal 8-15 [facility] Comment on above: Order Comment: Speci men Type: BLOOD SPECIMENOrdering Facility: [facility] Address: [address] [place] [address] Performed By: #### 2 4331-1 ####[facility]ORATORYCLIA [id number] [place], [place] [address] [place] [address] BERNICE MILLTOWNCLIA [id number] [address] [place]#### 79385-0 ####[facility] MILLTOWNCLIA [id number] [place] [address] [place] AST [Catalytic activity/Vol] 22 U/L Normal 14-40 [facility] Comment on above: Order Comment: Speci men Type: BLOOD SPECIMENOrdering Facility: [facility] Address: [address] [place] [address] Performed By: #### 2 4331-1 ####[facility] LABORATORYCLIA [id number] [address] BERNICE MILLTOWNCLIA [id number] [place] [address] [place]#### 92052-9 ####[facility] MILLTOWNCLIA [id number] [place] [address] [place] Bilirubin [Mass/Vol] 0.8 mg/dL Normal 0.2-1.3 [facility] Comment on above: Order Comment: Speci men Type: BLOOD SPECIMENOrdering Facility: [facility] Address: [address] [place] [address] Performed By: #### 2 4331-1 ####[facility] LABORATORYCLIA [id number] [address] BERNICE MILLTOWNCLIA [id number] [place] [address] [place]#### 20892-4 ####[facility] MILLTOWNCLIA [id number] [place] [address] [place] Calcium [Mass/Vol] 8.8 mg/dL Normal 8.5-10.2 [facility] Comment on above: Order Comment: Speci men Type: BLOOD SPECIMENOrdering Facility: [facility] Address: [address] [place] [address] Performed By: #### 2 4331-1 ####[facility]ORATORYCLIA [id number] [place] [address] [place] [facility] BERNICE MILLTOWNCLIA [id number] [place] [address] [place]#### 68151-5 ####[facility] MILLTOWNCLIA [id number] [place] [address] [place] Chloride [Moles/Vol] 102 mmol/L Normal 98-107 [facility] Comment on above: Order Comment: Speci men Type: BLOOD SPECIMENOrdering Facility: [facility] Address: [address] [place] [address] Performed By: #### 2 4331-1 ####[facility]ORATORYCLIA [id number] [address] OF [facility] BERNICEUNIVERSITY OF VERMONT MEDICAL CENTERWNCLIA [id number] [place] [address] [place]#### 64914-1 ####[facility] MILLWNCLIA [id number] [place] [address] [place] CO2 [Moles/Vol] 24 mmol/L Normal 22-30 [facility] Comment on above: Order Comment: Speci men Type: BLOOD SPECIMENOrdering Facility: [facility] Address: [address] [place] [address] Performed By: #### 2 4331-1 ####[facility]ORATORYCLIA [id number] [place] [address] [place] [facility] BERNICE MILLWNCLIA [id number] [address] [place] [address]#### 02592-5 ####[facility] MEDICAL CENTERLIA [id number] [place] [address] [place] [facility] Creatinine [Mass/Vol] 0.73 mg/dL Normal 0.73-1.22 [facility] Comment on above: Order Comment: Speci men Type: BLOOD SPECIMENOrdering Facility: [facility] Address: [address] [place] [address] Performed By: #### 2 4331-1 ####[facility] LABORATORYCLIA [id number] [id number] [place] [address]#### 79774-6 ####[facility] [id number] [address] Creatinine and Glomerular filtration rate.predicted panel (S/P/Bld) 88 mL/min/1.73m??? Normal >=60 [facility] Comment on above: Order Comment: Speci men Type: BLOOD SPECIMENOrdering Facility: [facility] Address: [address] [place] [address] Result Comment: Ruby mated Glomerular Filtration Rate [...] By: #### 2 4331-1 ####[facility] LABORATORYCLIA [id number] [address]ETWAPPLETON MUNICIPAL HOSPITALA [id number] [address]#### 37833-3 ####[facility] MED[facility] CENTERLIA [id number] [place] [address] [place] Glucose [Mass/Vol] 98 mg/dL Normal 74-99 [facility] Comment on above: Order Comment: Speci men Type: BLOOD SPECIMENOrdering Facility: [facility] Address: [address] [place], [place] [address] Result Comment: The [place] Diabetes Association (ADA) provides guidance for cutoff [...] Standards of Medical Care in Diabetes 2016, [place] [employer] Association. Diabetes Care. 2016.39(Suppl 1). Performed By: #### 2 4331-1 ####[facility] LABORATORYCLIA [id number] [address] [id number] [place] [address] [place]#### 58812-4 ####[facility] [id number] [place] [address] [place] Potassium [Moles/Vol] 4.1 mmol/L Normal 3.7-5.1 [facility] Comment on above: Order Comment: Speci men Type: BLOOD SPECIMENOrdering Facility: [facility] Address: [address] [place] [address] Performed By: #### 2 4331-1 ####[facility] LABORATORYCLIA [id number] [address] STATES OF [facility] [id number] [address] [place]#### 67662-1 ####[facility] FLORIDAWMDLIA [id number] [place] [address] [place] Protein [Mass/Vol] 6.8 g/dL Normal 6.3-8.0 [facility] Comment on above: Order Comment: Speci men Type: BLOOD SPECIMENOrdering Facility: [facility] Address: [address] [place] [address] Performed By: #### 2 4331-1 ####[facility] LABORATORYCLIA [id number] [address] [id number] [address] [place]#### 02768-3 ####[facility] [id number] [place] [address] [place] Sodium [Moles/Vol] 137 mmol/L Normal 136-144 [facility] Comment on above: Order Comment: Speci men Type: BLOOD SPECIMENOrdering Facility: [facility] Address: [address] [place] [address] Performed By: #### 2 4331-1 ####[facility] LABORATORYCLIA [id number] [address] [id number] [place] [address] [place]#### 65777-6 ####[facility] CENTERLIA [id number] [place] [address] [place] Urea nitrogen [Mass/Vol] 14 mg/dL Normal 9-24 [facility] Comment on above: Order Comment: Speci men Type: BLOOD SPECIMENOrdering Facility: [facility] Address: [address] [place] [address] Performed By: #### 2 4331-1 ####[facility]ORATORYCLIA [id number] [place], [place] [address] [place] [id number] [place]#### 39610-1 ####[facility] CENTERLIA [id number] [place] [address] [place] Lipid 1996 panelon 5 Cholesterol [Mass/Vol] 107 mg/dL Normal <200 [facility] Comment on above: Order Comment: Speci men Type: BLOOD SPECIMENOrdering Facility: [facility] Address: [address] [place] [address] Result Comment: <200 mg/dL, Desirable 200-239 mg/dL, Borderline high >239 mg/dL, High Performed By: #### 2 4331-1 ####[facility]ORATORYCLIA [id number] [address] [id number] [address] [place]#### 30767-9 ####[facility] [id number] [address] [place] Cholesterol in HDL [Mass/Vol] 43 mg/dL Normal >39 [facility] Comment on above: Order Comment: Speci men Type: BLOOD SPECIMENOrdering Facility: [facility] Address: [address] [place] [address] Result Comment: 40-5 9 mg/dL, Acceptable >59 mg/dL, High: Negative risk factor for coronary heart disease <40 mg/dL, Low: Positive risk factor for coronary heart disease Performed By: #### 2 4331-1 ####[facility]ORATORYCLIA [id number] [place], [place] [address] [place] [address] OF [facility] SOUTHLIA [id number] [address]#### 69938-8 ####[facility] [id number] [address] Cholesterol in LDL [Mass/Vol] 51 mg/dL Normal <100 [facility] Comment on above: Order Comment: Speci men Type: BLOOD SPECIMENOrdering Facility: [facility] Address: [address] [place] [address] Result Comment: <100 mg/dL, Optimal 100-129 mg/dL, Near optimal/above optimal 130-159 mg/dL, Borderline high 160-189 mg/dL, High >189 mg/dL, Very high Secondary prevention optimal LDL Cholesterol levels are recommended to be < 70 mg/dL Performed By: #### 2 4331-1 ####[facility] LABORATORYCLIA [id number] [address] [id number] [address]#### 92814-4 ####[facility] [id number]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 ####[facility] CLINENCLIA [id number] [address] [place] [facility] 01-20-2024 CNPN Telephone (PHAMTE) ROBY FLORES ([id number]) 1935 M Date Time Provider Department 01/20/24 CORETTA JALLOH During your visit today, we recorded the following information about you: Coretta Jalloh RPh 01/20/2024 10:25 AM Signed [facility] Ambulatory Pharmacy Anticoagulation Clinic Anticoagulation Episode Summary Anticoagulation Care Providers Provider Role Specialty Phone number Stas Mora MD Referring Family Medicine [phone] Roby Martinezenter is a 88 year old [...] ALLERGIES No Known Allergies Indication for Warfarin: assisted current use of 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 Coretta Jalloh [facility] Clinical Pharmacist, Pharmacy Anticoagulation Clinic Pharmacy Anticoagulation Clinic Pager: [phone]. 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 assisted current use of anticoagulant [Z79.01]09/22/2016 Paroxysmal atrial fibrillation (HCC) [I48.0] 09/22/2016 Hyperlipidemia [E78.5] 08/26/2022 Encounter Status:Closed by CORETTA JALLOH on 01/20/24 Normal [facility] PT panel Coag (PPP)on 2023 INR Coag (PPP) [Relative time] 3.4 {INR} High 0.9-1.3 [facility] Comment on above: Order Comment: Stone parmar Type: BLOOD SPECIMENOrdering Facility: [facility] Address: [address] [place] [id number] Result Comment: Mary min K Antagonist (VKA) Therapeutic Range: INR 2 to 3 (Target INR of 2.5) Note: For patients treated with VKA drugs, such as warfarin, the [place] [employer]icians 2012 Guideline recommends [...] Chest 2012, 141:7S-47S Avel RA, et al. [facility] 2017, 70: 252-289 Performed By: #### 3 4528-0 ####[facility] [id number] [place] [address] [place] PT Coag (PPP) [Time] 31.8 s High <13.1 [facility] Comment on above: Order Comment: Stone parmar Type: BLOOD SPECIMENOrdering Facility: [facility] Address: [address] [place] [id number] Performed By: #### 3 4528-0 ####[facility] N[facility]LESNCLIA [id number] [address] [place] Gene 01-04-2024 SHEMARN Telephone (FAMPWS) ROBY FLORES ([id number]) 1935 M Date Time Provider Department 01/04/24 STAS MORA During your visit today, we recorded the following information about you: Oliva Westbrook LPN 01/04/2024 9:37 AM Signed Patient significant other Maria Guadalupe calling asking for a warfarin 3 mg rx to be sent to [place] [facility]. He is taking 3 mg daily [...] daily as directed. 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 Encounter Status:Closed by JENNA FITZPATRICK on 01/04/24 [facility] 12-24-2023 MICHELINE Telephone (DARIENMTE) ROBY FLORES ([id number]) 1935 M Date Time Provider Department 12/24/23 ELISE PAREDES During your visit today, we recorded the following information about you: Elise Paredes [facility] 12/24/2023 2:32 PM Signed [facility] Pharm[facility] Anticoagulation Clinic Anticoagulation Episode Summary Anticoagulation Care Providers Provider Role Specialty Phone number Stas Mora MD Referring Family Medicine [phone] Roby Garcia Sandra is a 88 year [...] No Known Allergies Indication for Warfarin: 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 Paroxysmal atrial fibrillation (hcc) Anticoagulation Episode Summary Current INR goal: 2.0-3.0 Assessment: INR result of 2.2 is therapeutic Plan: Current Warfarin Dosing As of 12/24/2023 Full warfarin instructions: 2.5 mg every Sun; 3 mg all other days Left voice message Advised patient to continue current weekly dose as noted above Next lab INR check scheduled on 01/21/2024 Elise Paredes [facility] Clinical Pharmacist, Pharmacy Anticoagulation Clinic Pharmacy Anticoagulation Clinic Pager: [phone]. 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 [Z79.01]09/22/2016 Paroxysmal atrial fibrillation (HCC) [I48.0] 09/22/2016 Hyperlipidemia [E78.5] 08/26/2022 Encounter Status:Closed by ELISE PAREDES on 12/24/23 Normal [facility] PT panel Coag (PPP)on 2023 INR Coag (PPP) [Relative time] 2.2 {INR} High 0.9-1.3 [facility] Comment on above: Order Comment: Speci men Type: BLOOD SPECIMENOrdering Facility: [facility] Address: [address] [place] [address] [place] [address] Result Comment: Mary min K Antagonist (VKA) Therapeutic Range: INR 2 to 3 (Target INR of 2.5) Note: For patients treated with VKA drugs, such as warfarin, the [place] [employer] 2012 Guideline recommends [...] Chest 2012, 141:7S-47S Avel RA, et al. [facility] 2017, 70: 252-289 Performed By: #### 3 4528-0 ####[facility] [id number] [place] [address] [place] PT Coag (PPP) [Time] 22.1 s High 9.7-13.0 [facility] Comment on above: Order Comment: Speci men Type: BLOOD SPECIMENOrdering Facility: [facility] Address: [address] [place] [address] Performed By: #### 3 4528-0 ####[facility] [id number] [address] [place] CNPMarizol 12-10-2023 SHEMARN Telephone (SHAY) ROBY FLORES ([id number]) 1935 M Date Time Provider Department 12/10/23 ELISE PAREDES During your visit today, we recorded the following information about you: Elise Paredes RPh 12/10/2023 2:21 PM Signed [facility] Ambulatory Pharmacy Anticoagulation Clinic Anticoagulation Episode Summary Anticoagulation Care Providers Provider Role Specialty Phone number Stas Mora MD Referring Family Medicine [phone] Roby Flores is a 88 year old [...] ALLERGIES No Known Allergies Indication for Warfarin: assisted current use of anticoagulant Paroxysmal atrial fibrillation (hcc) Anticoagulation Episode Summary Current INR goal: 2.0-3.0 Assessment: INR result of 1.9 is SUBtherapeutic due to: unknown cause - did not speak to patient Plan: Current Warfarin Dosing As of 12/10/2023 Full warfarin instructions: 2.5 mg every Sun; 3 mg all other days Left voice message for Gabby at [phone] (home) Advised patient to increase total weekly regimen Next lab INR check scheduled on 12/24/2023 Elise Paredes RPh Clinical Pharmacist, Pharmacy Anticoagulation Clinic Pharmacy Anticoagulation Clinic Pager: [phone]. 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 [Z79.01]09/22/2016 Paroxysmal atrial fibrillation (HCC) [I48.0] 09/22/2016 Hyperlipidemia [E78.5] 08/26/2022 Encounter Status:Closed by ELISE PAREDES on 12/10/23 Normal [facility] PT panel Coag (PPP)on 2023 INR Coag (PPP) [Relative time] 1.9 {INR} High 0.9-1.3 [facility] Comment on above: Order Comment: Stone parmar Type: BLOOD SPECIMENOrdering Facility: [facility] Address: [address] [place] [address] Result Comment: Mary min K Antagonist (VKA) Therapeutic Range: INR 2 to 3 (Target INR of 2.5) Note: For patients treated with VKA drugs, such as warfarin, the [place] [employer] 2012 Guideline recommends [...] 70: 252-289 Performed By: #### 3 4528-0 ####[facility] [id number] [place] [address] [place] PT Coag (PPP) [Time] 18.8 s High 9.7-13.0 [facility] Comment on above: Order Comment: Stone parmar Type: BLOOD SPECIMENOrdering Facility: [facility] Address: [address] [place] [address] Performed By: #### 3 4528-0 ####[facility] [id number] [place] [address] [place] CNOVon 11-26-2023 CNOV Office Visit (FAMPWS ) ROBY FLORES ([id number]) 1935 M Date Time Provider Department 11/26/23 [...] Coronary atherosclerosis of unspecified type of vessel, [place] or graft Comment: Coronary artery disease No [...] 11/22/2023 Influ (more content not included)... Normal [facility] CNPNon 11-26-2023 CNPN Telephone (PHAMTE) ROBY FLORES ([id number]) 1935 M Date Time Provider Department 11/26/23 ELISE PAREDES During your visit today, we recorded the following information about you: Elise Paredes, [facility] 11/26/2023 4:23 PM Signed [facility] Ambulatory Pharmacy Anticoagulation Clinic Anticoagulation Episode Summary Anticoagulation Care Providers Provider Role Specialty Phone number Stas Mora MD Referring Family Medicine [phone] Roby Martinezenter is a 88 year old [...] ALLERGIES No Known Allergies Indication for Warfarin: assisted current use of anticoagulant Paroxysmal atrial fibrillation [...] call PAC to discuss further Elise Paredes [facility] Clinical Pharmacist, Pharmacy Anticoagulation Clinic Pharmacy Anticoagulation Clinic Pager: [phone]. Satish (Tire And Tube RepairerParmjit Berry 11/26/2023 4:30 PM Signed Patient's spouse called regarding message. Patient typically takes warfarin in the morning but did not take any today. Patient's spouse doesn't understand why its low all the sudden. Denies changes in medication/ diet or missed doses. Call transferred to [facility] Parmjit Covarrubias Stroke Belt Sander Operator (computer programmer analyst) Pharmacy Anticoagulation Clinic Elise Paredes [facility] 11/26/2023 4:32 PM S[address] [facility] Pharmacy Anticoagulation Clinic Anticoagulation Episode Summary Anticoagulation Care Providers Provider Role Specialty Phone number Stas Mora MD Referring Family Medicine [phone] Roby Flores is a 88 year old [...] No Known Allergies Indication for Warfarin: 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 Paroxysmal atrial fibrillation [...] Pharmacy Anticoagulation Clinic Pharmacy Anticoagulation Clinic Pager: [phone]. Allergies As of Date: 11/26/2023 (No Known Allergies) Date Reviewed: 11/26/2023 Reviewed by: Rosie Cruz MA - Fully Assessed Reason for Visit: Anticoagulation Telephone Fu [148] Cmt: Lab INR Primary Visit Diagnosis: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 [Z79.01] (more content not included)... Normal [facility] PT panel Coag (PPP)on 2023 INR Coag (PPP) [Relative time] 1.5 {INR} High 0.9-1.3 [facility] Comment on above: Order Comment: Stone parmar Type: BLOOD SPECIMENOrdering Facility: [facility] Address: [address] [place] [address] Result Comment: Mary min K Antagonist (VKA) Therapeutic Range: INR 2 to 3 (Target INR of 2.5) Note: For patients treated with VKA drugs, such as warfarin, the [place] [employer] 2012 Guideline recommends [...] Chest 2012, 141:7S-47S Avel RA, et al. [facility] 2017, 70: 252-289 Performed By: #### 3 4528-0 ####[facility] LABIA [id number] [place] [address] [place] PT Coag (PPP) [Time] 15.1 s High 9.7-13.0 [facility] Comment on above: Order Comment: Stone parmar Type: BLOOD SPECIMENOrdering Facility: [facility] Address: [address] [place] [id number] Performed By: #### 3 4528-0 ####[facility] LABCLIA [id number] [place] [address] [place] CNPMarizol 11-18-2023 CNPN Telephone ([facility]) ROBY FLORES ([id number]) 1935 M Date Time Provider Department 11/18/23 CORETTA JALLOH During your visit today, we recorded the following information about you: Coretta Jalloh [facility] 11/18/2023 4:37 PM Signed [facility] Ambulatory Pharmacy Anticoagulation Clinic Anticoagulation Episode Summary Anticoagulation Care Providers Provider Role Specialty Phone number Stas Mora MD Referring Family Medicine [phone] Roby Flores is a 88 year old [...] No Known Allergies Indication for Warfarin: 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 Paroxysmal atrial fibrillation [...] Patient denies need for refills. Coretta Jalloh [facility] Clinical Pharmacist, Pharmacy Anticoagulation Clinic Pharmacy Anticoagulation Clinic Pager: [phone]. 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 assisted current use of anticoagulant [Z79.01]09/22/2016 Paroxysmal atrial fibrillation (HCC) [I48.0] 09/22/2016 Hyperlipidemia [E78.5] 08/26/2022 Encounter Status:Closed by CORETTA JALLOH on 11/18/23 Normal [facility] PT panel Coag (PPP)on 2023 INR Coag (PPP) [Relative time] 1.8 {INR} High 0.9-1.3 [facility] Comment on above: Order Comment: Stone parmar Type: BLOOD SPECIMENOrdering Facility: [facility] Address: [address] [place] [address] Result Comment: Mary min K Antagonist (VKA) Therapeutic Range: INR 2 to 3 (Target INR of 2.5) Note: For patients treated with VKA drugs, such as warfarin, the [place] [employer] 2012 Guideline recommends [...] Chest 2012, 141:7S-47S Avel RA, et al. [facility] 2017, 70: 252-289 Performed By: #### 3 4528-0 ####[facility] LABCLIA [id number] [place] [address] [place] PT Coag (PPP) [Time] 18.6 s High 9.7-13.0 [facility] Comment on above: Order Comment: Stone paramr Type: BLOOD SPECIMENOrdering Facility: [facility] Address: [address], [place] [address] Performed By: #### 3 4528-0 ####[facility] [place]ADE [id number] [id number] [id number] [place] CNPMarizol 10-14-2023 CNPN Telephone (PHAMTE) ROBY FLORES ([id number]) 1935 M Date Time Provider Department 10/14/23 CORETTA JALLOH During your visit today, we recorded the following information about you: Coretta Jalloh [facility] 10/14/2023 4:24 PM Signed [facility] Ambulatory Pharmacy Anticoagulation Clinic Anticoagulation Episode Summary Anticoagulation Care Providers Provider Role Specialty Phone number Stas Mora MD Referring Family Medicine [phone] Roby Flores is a 88 year old [...] No Known Allergies Indication for Warfarin: 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 Paroxysmal atrial fibrillation [...] Patient denies need for refills. Coretta Jalloh [facility] Clinical Pharmacist, Pharmacy Anticoagulation Clinic Pharmacy Anticoagulation Clinic Pager: [phone]. Coretta Jalloh RPh 11/11/2023 2:23 PM Signed Patient was due to test INR today at the lab -will continue to monitor for results. 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 assisted current use of anticoagulant [Z79.01]09/22/2016 Paroxysmal atrial fibrillation (HCC) [I48.0] 09/22/2016 Hyperlipidemia [E78.5] 08/26/2022 Encounter Status:Closed by CORETTA JALLOH on 10/14/23 Normal [facility] PT panel Coag (PPP)on 2023 INR Coag (PPP) [Relative time] 2.3 {INR} High 0.9-1.3 [facility] Comment on above: Order Comment: Speci men Type: BLOOD SPECIMENOrdering Facility: [facility] Address: [address] [place], [place] [id number] Result Comment: Mary min K Antagonist (VKA) Therapeutic Range: INR 2 to 3 (Target INR of 2.5) Note: For patients treated with VKA drugs, such as warfarin, the [place] [employer] 2012 Guideline recommends [...] Chest 2012, 141:7S-47S Avel CARDONA, et al. [facility] 2017, 70: 252-289 Performed By: #### 3 4528-0 ####[facility] [id number] [place] [address] [place] PT Coag (PPP) [Time] 23.0 s High 9.7-13.0 [facility] Comment on above: Order Comment: Speci men Type: BLOOD SPECIMENOrdering Facility: [facility] Address: [address] [place] [address] Performed By: #### 3 4528-0 ####[facility] LABIA [id number] [address] [place] CBC W Auto Differential pane l (Bld)on 06-04-2023 Basophils (Bld) [#/Vol] 0.06 10*3/uL <0.11 k/uL [facility] Basophils/100 WBC (Bld) 0.9 % [facility] Differential cell count method Nom (Bld) Auto [facility] Eosinophils (Bld) [#/Vol] 0.16 10*3/uL <0.46 k/uL [facility] Eosinophils/100 WBC (Bld) 2.4 % [facility] Erythrocyte distribution width (RBC) [Ratio] 15.7 % High 11.5 - 15.0 % [facility] Hematocrit (Bld) [Volume fraction] 34.9 % Low 39.0 - 51.0 % [facility] Hemoglobin (Bld) [Mass/Vol] 10.0 g/dL Low 13.0 - 17.0 g/dL [facility] Immature granulocytes (Bld) [#/Vol] <0.10 k/uL [facility] Immature granulocytes/100 WBC (Bld) 0.3 % [facility] Lymphocytes (Bld) [#/Vol] 1.65 10*3/uL 1.00 - 4.00 k/uL [facility] Lymphocytes/100 WBC (Bld) 24.8 % [facility] MCH (RBC) [Entitic mass] 20.9 pg Low 26.0 - 34.0 pg [facility] MCHC (RBC) [Mass/Vol] 28.7 g/dL Low 30.5 - 36.0 g/dL [facility] MCV (RBC) [Entitic vol] 73.0 fL Low 80.0 - 100.0 fL [facility] Monocytes (Bld) [#/Vol] 0.61 10*3/uL <0.87 k/uL [facility] Monocytes/100 WBC (Bld) 9.2 % [facility] Neutrophils (Bld) [#/Vol] 4.16 10*3/uL 1.45 - 7.50 k/uL [facility] Neutrophils/100 WBC (Bld) 62.4 % [facility] Nucleated RBC (Bld) [#/Vol] <0.01 k/uL [facility] Nucleated RBC/100 WBC (Bld) [Ratio] 0.0 /100 WBC [facility] Platelet mean volume (Bld) [Entitic vol] 10.7 fL 9.0 - 12.7 fL [facility] Platelets (Bld) [#/Vol] 297 10*3/uL 150 - 400 k/uL [facility] RBC (Bld) [#/Vol] 4.78 10*6/uL 4.20 - 6.00 m/uL [facility] WBC (Bld) [#/Vol] 6.66 10*3/uL 3.70 - 11.00 k/uL [facility] MRI BRAIN WO IVCONon 02-17-2 023 [facility] Absolute lymphocyte countOrd ered By: Brian Cunningham on 02-10-2023 Lymphocytes Auto (Unsp spec) [#/Vol] 0.99 10*3/uL 0.83-4.51 [facility] Basophil percentageOrdered B y: Brian Cunningham on 02-10-2023 Basophil percentage 0-5 SEEN /hpf 0-5 [facility] Basophils/100 WBC (Bld) 0.8 % 0-1 [facility] Chloride [Moles/Vol] 108 mmol/L 98-107 [facility] Eosinophils/100 WBC (Bld) 0.4 % 0-5 [facility] Glucose [Mass/Vol] 117 mg/dL 74-106 [facility] Comment on above: Fasting Glucose resu lt from 100 to 125 mg/dL suggests IMPAIRED HOMEOSTASIS per A.D.A. criteria. Neutrophils (Bld) [#/Vol] 5.8 10*3/uL 2.0-7.7 [facility] Neutrophils/100 WBC (Bld) 77.9 % 47-70 [facility] Potassium [Moles/Vol] 4.0 mmol/L 3.5-5.1 [facility] Sodium [Moles/Vol] 140 mmol/L 136-145 [facility] WBC (Bld) [#/Vol] 7.5 10*3/uL 4.4-11.0 [facility] Bilirubin Test strip Ql (U)O rdered By: Brian Cunningham on 02-10-2023 Bilirubin Ql (U) 1 mg/dL Negative [facility] Comment on above: COLOR OF URINE MAY A FFECT DIPSTICK RESULTS. Blood erythrocytes count (nu mber/volume)Ordered By: Brian Cunningham on 02-10-2023 RBC (Bld) [#/Vol] 4.42 10*6/uL 4.6-6.2 [facility] Blood hemoglobin measurement (mass/volume)Ordered By: Brian Cunningham on 02-10-2023 Hemoglobin (Bld) [Mass/Vol] 10.6 g/dL 13.0-16.5 [facility] Blood lymphocytes/100 leukoc ytesOrdered By: Brian Cunningham on 02-10-2023 Lymphocytes/100 WBC (Bld) 13.3 % 19-41 [facility] Blood monocytes/100 leukocyt esOrdered By: Brian Cunningham on 02-10-2023 Monocytes/100 WBC (Bld) 7.2 % 0-10 [facility] Blood platelet mean volumeOr dered By: Brian Cunningham on 02-10-2023 Platelet mean volume (Bld) [Entitic vol] 9.9 fL 6.2-12.0 [facility] Determination of erythrocyte mean corpuscular volume (MCV)Ordered By: Brian Cunningham on 02-10-2023 MCV (RBC) [Entitic vol] 81.9 fL 80-94 [facility] Hematocrit Auto (Bld) [Volum e fraction]Ordered By: Brian Cunningham on 02-10-2023 Hematocrit (Bld) [Volume fraction] 36.2 % 40-54 [facility] INR in Blood by Coagulation assayOrdered By: Brian Cunningham on 02-10-2023 INR Coag (Bld) [Relative time] 1.2 {INR} [facility] Influenza virus A and B and SARS-CoV-2 (COVID-19) Ag panel - Upper respiratory specimOrdered By: Brian Cunningham on 02-10-2023 SARS-CoV-2 (COVID-19) RNA LOLI+probe Ql (Resp) [facility] Ketones Test strip Ql (U)Ord ered By: Brian Cunningham on 02-10-2023 Ketones Ql (U) 5 mg/dl Negative [facility] Laboratory - Chemistry and C hemistry - challengeOrdered By: Brian Cunningham on 02-10-2023 CO2 [Moles/Vol] 30.0 mmol/L 21.0-32.0 [facility] Urea nitrogen/Creatinine [Mass ratio] 23.8 mg/mg 10-20 [facility] Laboratory - CoagulationOrde red By: Brian Cunningham on 02-10-2023 aPTT Coag (Bld) [Time] 26.3 s 24.1-36.2 [facility] PT Coag (PPP) [Time] 15.6 s 11.7-14.9 [facility] - Hematology and Cell countsOrdered By: Brian Cunningham on 02-10-2023 Erythrocyte distribution width (RBC) [Entitic vol] 41.8 fL 35.1-43.9 [facility] Erythrocyte distribution width (RBC) [Ratio] 14.1 % 11.6-14.6 [facility] Immature granulocytes/100 WBC (Bld) 0.400 % 0.0-0.9 [facility] Comment on above: IG% - Immature Granu locytes (promyelocytes, myelocytes and metamyelocytes) > 1% indicates that a LEFT SHIFT is Present. MCH (RBC) [Entitic mass] 24.0 pg 27.0-32.0 [facility] Nucleated RBC/100 WBC (Bld) [Ratio] 0 % 0-5 [facility] MCHC Auto (RBC) [Mass/Vol]Or dered By: Brian Cunningham on 02-10-2023 MCHC (RBC) [Mass/Vol] 29.3 g/dL 32-36 [facility] Mucus LM Ql (Urine sed)Order ed By: Brian Cunningham on 02-10-2023 Mucus Ql (Urine sed) 0 SEEN /hpf [facility] Nitrite Test strip Ql (U)Ord ered By: Brian Cunningham on 02-10-2023 Nitrite Ql (U) Negative Negative [facility] No Panel InformationOrdered By: Brian Cunningham on 02-10-2023 Estimated Creatinine Clearance Calc 68.37 ml/min [facility] Estimated GFR (MDRD) Amer 118 mL/min >60 [facility] Comment on above: GFR Calc Estimated GFR (MDRD) Non-Af Amer 97 mL/min >60 [facility] Comment on above: Non- GFR Calc Troponin I High Sensitivity 16 pg/mL 3.0-78.0 [facility] Comment on above: Please Note: New [place] t Units and Gender Specific Reference Ranges. For more information see Policy Stat Procedure [place] High Sensitivity Troponin (TNIH) and attachments. Platelets bldOrdered By: Caitlyn Cunningham on 02-10-2023 Platelets (Bld) [#/Vol] 328 10*3/uL 150-450 [facility] Protein Test strip Ql (U)Ord ered By: Brian Cunningham on 02-10-2023 Protein Ql (U) 15 mg/dl Negative [facility] Serum or plasma calcium alvaro urement (mass/volume)Ordered By: Brian Cunningham on 02-10-2023 Calcium [Mass/Vol] 8.9 mg/dL 8.5-10.1 [facility] Serum or plasma creatinine m easurement (mass/volume)Ordered By: Brian Cunningham on 02-10-2023 Creatinine [Mass/Vol] 0.80 mg/dL 0.70-1.30 [facility] Comment on above: The validity of the calculated GFR & GFRAA in patients over 70 years has not been determined. Clinical correlation is essential. Serum or plasma urea nitroge n measurement (mass/volume)Ordered By: Brian Cunningham on 02-10-2023 Urea nitrogen [Mass/Vol] 19 mg/dL 7-18 [facility] Squamous epithelial cells de tection in urine sediment by light microscopyOrdered By: Brian Cunningham on 02-10-2023 Epithelial cells.squamous LM Ql (Urine sed) 0 SEEN /hpf 0-5 [facility] Thin prep Papanicolaou smear with manual screeningOrdered By: Brian Cunningham on 02-10-2023 Thin prep Papanicolaou smear with manual screening 2 5-15 [facility] Urine blood detectionOrdered By: Brian Cunningham on 02-10-2023 RBC Ql (U) Negative Negative [facility] RBC Ql (U) 0 SEEN /hpf 0-5 [facility] Urine clarityOrdered By: Caitlyn Cunningham on 02-10-2023 Clarity (U) Clear Clear [facility] [facility] Urine color determinationOrd ered By: Brian Cunningham on 02-10-2023 Color (U) Yellow Yellow [facility] Urine glucose detectionOrder ed By: Brian Cunningham on 02-10-2023 Glucose Ql (U) Normal mg/dl Normal [facility] Urine leukocyte esterase det ection by dipstickOrdered By: Brian Cunningham on 02-10-2023 Leukocyte esterase Test strip Ql (U) 25 /ul Negative [facility] Urine pHOrdered By: Brian swain on 02-10-2023 pH (U) 6.5 [pH] 5.0 - 8.0 [facility] Urine sediment bacteria coun t by microscopy (number/high power field)Ordered By: Brian Cunningham on 02-10-2023 Bacteria LM.HPF (Urine sed) [#/Area] 0 /[HPF] None Seen [facility] Urine specific gravity measu rementOrdered By: Brian Cunningham on 02-10-2023 Specific gravity (U) [Rel density] 1.015 1.002-1.03 0 [facility] Urobilinogen Auto test strip Ql (U)Ordered By: Brian Cunningham on 02-10-2023 Urobilinogen Ql (U) 4 mg/dl Normal [facility] CT HEAD OR BRAIN W/O CONTRAS Ton [...] 11/17/2022 4:26:20 PM Ordering Provider: STERLING LYNCH [facility] ([facility]) XR Pelvis and Hip - left AP and Lateral frogon 05-21-2022 IMPRESSION: No acute fracture or hip dislocation Cadd Drafter: EDUAR Transcribe Date/Time: May 21 2022 3:41P Dictated by : JUDY MCKENZIE MD This examination was interpreted and the report reviewed and electronically signed by: JUDY MCKENZIE MD on May 21 2022 3:43PM [facility] DIVISION OF RADIOLOGY * * *Final [...] Small acetabular osteophytes. DIVISION OF RADIOLOGY [facility] * * *Final Report* * [...] IMPRESSION: No acute fracture or hip dislocation Cadd Drafter: PSCB Transcribe Date/Time: May 21 2022 3:41P Dictated by : JUDY MCKENZIE MD This examination was interpreted and the report reviewed and electronically signed by: JUDY MCKENZIE MD on May 21 2022 3:43PM EST [facility] Radiology Study observation (narrative) [facility] XR Pelvis and Hip - left AP and Lateral frogOrdered By: Ccf Provider on 05-21-2022 [facility] PT panel Coag (PPP)on 2022 INR Coag (Bld) [Relative time] 1.7 {INR} [facility] Basophil percentageon 2021 Cholesterol [Mass/Vol] 152 mg/dL <200 [facility] Work Phone: Comment on above: <200 mg/dL Desirable 200-240 mg/dL Borderline >240 mg/dL High Risk Triglyceride [Mass/Vol] 76 mg/dL <199 [facility] Work Phone: Comment on above: The drugs N-Acetylcy steine and Metamizole may falsely depress this assay.Serum Triglycerides Reference Interval Normal <150 mg/dL Borderline high 150 - 199 mg/dL High 200 - 499 mg/dL Very High > or = 500 mg/dL INR in Blood by Coagulation assayon 12-22-2021 INR Coag (Bld) [Relative time] 2.5 {INR} [facility] Work Phone: Laboratory - Chemistry and C hemistry - challengeon 12-22-2021 Magnesium [Mass/Vol] 2.1 mg/dL 1.6-2.6 [facility] Work Phone: Laboratory - Coagulationon 1 PT Coag (PPP) [Time] 27.0 s 11.7-14.9 [facility] Work Phone: No Panel Informationon 12-22 Thyroid Stimulating Hormone (TSH) 0.42 uIU/mL 0.358-3.74 [facility] Work Phone: Serum or plasma cholesterol in HDL measurement (mass/volume)on 12-22-2021 Cholesterol in HDL [Mass/Vol] 35 mg/dL >40 [facility] Work Phone: Comment on above: The drugs N-Acetylcy steine and Metamizole may falsely depress this assay. Reference Range HDL <40 mg/dL Low HDL Cholesterol HDL >or= 60 mg/dL High HDL Cholesterol Serum or plasma cholesterol in VLDL measurement (mass/volume)on 12-22-2021 Cholesterol in VLDL [Mass/Vol] 15 mg/dL 5-40 [facility] Work Phone: Serum or plasma low density lipoprotein (LDL) cholesterol measurement (mass/volume)on 12-22-2021 Cholesterol in LDL [Mass/Vol] 102 mg/dL 0-130 [facility] Work Phone: Whole blood hemoglobin A1c/t otal hemoglobin ratio (mass fraction)on 12-22-2021 HbA1c (Bld) [Mass fraction] 5.9 % 3.8-5.6 [facility] Work Phone: Comment on above: Normal < 5.7 % Predi abetic 5.7 - 6.4 % Diabetic >or= 6.5 % Please note range changes. Absolute lymphocyte counton 12-21-2021 Lymphocytes Auto (Unsp spec) [#/Vol] 1.23 10*3/uL 0.83-4.51 [facility] Work Phone: Basophil percentageon 2021 Basophils/100 WBC (Bld) 0.4 % 0-1 [facility] Work Phone: Chloride [Moles/Vol] 106 mmol/L 98-107 [facility] Work Phone: [phone] Eosinophils/100 WBC (Bld) 1.4 % 0-5 [facility] Work Phone: Glucose [Mass/Vol] 107 mg/dL 74-106 [facility] Work Phone: Comment on above: Fasting Glucose resu lt from 100 to 125 mg/dL suggests IMPAIRED HOMEOSTASIS per A.D.A. criteria. Neutrophils (Bld) [#/Vol] 5.7 10*3/uL 2.0-7.7 [facility] Work Phone: [phone] Neutrophils/100 WBC (Bld) 72.4 % 47-70 [facility] Work Phone: Potassium [Moles/Vol] 3.7 mmol/L 3.5-5.1 [facility] Work Phone: Sodium [Moles/Vol] 141 mmol/L 136-145 [facility] Work Phone: WBC (Bld) [#/Vol] 7.9 10*3/uL 4.4-11.0 [facility] Work Phone: Blood erythrocytes count (nu mber/volume)on 12-21-2021 RBC (Bld) [#/Vol] 4.85 10*6/uL 4.6-6.2 [facility] Work Phone: Blood hemoglobin measurement (mass/volume)on 12-21-2021 Hemoglobin (Bld) [Mass/Vol] 14.5 g/dL 13.0-16.5 [facility] Work Phone: [phone] Blood lymphocytes/100 leukoc yteson 12-21-2021 Lymphocytes/100 WBC (Bld) 15.5 % 19-41 [facility] Work Phone: Blood monocytes/100 leukocyt eson 12-21-2021 Monocytes/100 WBC (Bld) 9.9 % 0-10 [facility] Work Phone: Blood platelet mean volumeon 12-21-2021 Platelet mean volume (Bld) [Entitic vol] 10.2 fL 6.2-12.0 [facility] Work Phone: Determination of erythrocyte mean corpuscular volume (MCV)on 12-21-2021 MCV (RBC) [Entitic vol] 92.0 fL 80-94 [facility] Work Phone: Hematocrit Auto (Bld) [Volum e fraction]on 12-21-2021 Hematocrit (Bld) [Volume fraction] 44.6 % 40-54 [facility] Work Phone: INR in Blood by Coagulation assayon 12-21-2021 INR Coag (Bld) [Relative time] 2.3 {INR} [facility] Work Phone: Laboratory - Chemistry and C hemistry - challengeon 12-21-2021 CO2 [Moles/Vol] 29.0 mmol/L 21.0-32.0 [facility] Work Phone: Urea nitrogen/Creatinine [Mass ratio] 21.8 mg/mg 10-20 [facility] Work Phone: Laboratory - Coagulationon 1 aPTT Coag (Bld) [Time] 36.6 s 24.1-36.2 [facility] Work Phone: PT Coag (PPP) [Time] 24.7 s 11.7-14.9 [facility] Work Phone: Laboratory - Hematology and Cell countson 12-21-2021 Erythrocyte distribution width (RBC) [Entitic vol] 42.2 fL 35.1-43.9 [facility] Work Phone: Erythrocyte distribution width (RBC) [Ratio] 12.5 % 11.6-14.6 [facility] Work Phone: Immature granulocytes/100 WBC (Bld) 0.400 % 0.0-0.9 [facility] Work Phone: Comment on above: IG% - Immature Granu locytes (promyelocytes, myelocytes and metamyelocytes) > 1% indicates that a LEFT SHIFT is Present. MCH (RBC) [Entitic mass] 29.9 pg 27.0-32.0 [facility] Work Phone: Nucleated RBC/100 WBC (Bld) [Ratio] 0 % 0-5 [facility] Work Phone: MCHC Auto (RBC) [Mass/Vol]on 12-21-2021 MCHC (RBC) [Mass/Vol] 32.5 g/dL 32-36 [facility] Work Phone: No Panel Informationon 12-21 Estimated Creatinine Clearance Calc 66.90 ml/min [facility] Work Phone: Estimated GFR (MDRD) Amer 107 mL/min >60 [facility] Work Phone: Comment on above: GFR Calc Estimated GFR (MDRD) Non-Af Amer 88 mL/min >60 [facility] Work Phone: Comment on above: Non- GFR Calc Troponin I High Sensitivity 13 pg/mL 3.0-78.0 [facility] Work Phone: Comment on above: Please Note: New Hiwot t Units and Gender Specific Reference Ranges. For more information see Policy Stat Procedure [place] High Sensitivity Troponin (TNIH) and attachments. Platelets bldon 12-21-2021 Platelets (Bld) [#/Vol] 241 10*3/uL 150-450 [facility] Work Phone: Serum or plasma calcium alvaro urement (mass/volume)on 12-21-2021 Calcium [Mass/Vol] 9.2 mg/dL 8.5-10.1 [facility] Work Phone: Serum or plasma creatinine m easurement (mass/volume)on 12-21-2021 Creatinine [Mass/Vol] 0.87 mg/dL 0.70-1.30 [facility] Work Phone: Comment on above: The validity of the calculated GFR & GFRAA in patients over 70 years has not been determined. Clinical correlation is essential. Serum or plasma urea nitroge n measurement (mass/volume)on 12-21-2021 Urea nitrogen [Mass/Vol] 19 mg/dL 7-18 [facility] Work Phone: Thin prep Papanicolaou smear with manual screeningon 12-21-2021 Thin prep Papanicolaou smear with manual screening 08-04 [facility] Work Phone: CBC panel Auto (Bld)on 07-08 Erythrocyte distribution width (RBC) [Ratio] 13.1 % 11.5 - 15.0 % [facility] Hematocrit (Bld) [Volume fraction] 49.5 % 39.0 - 51.0 % [facility] Hemoglobin (Bld) [Mass/Vol] 15.9 g/dL 13.0 - 17.0 g/dL [facility] MCH (RBC) [Entitic mass] 29.6 pg 26.0 - 34.0 pg [facility] MCHC (RBC) [Mass/Vol] 32.1 g/dL 30.5 - 36.0 g/dL [facility] MCV (RBC) [Entitic vol] 92.2 fL 80.0 - 100.0 fL [facility] Nucleated RBC (Bld) [#/Vol] 10*3/uL <0.01 k/uL [facility] Platelet mean volume (Bld) [Entitic vol] 10.7 fL 9.0 - 12.7 fL [facility] Platelets (Bld) [#/Vol] 235 10*3/uL 150 - 400 k/uL [facility] RBC (Bld) [#/Vol] 5.37 10*6/uL 4.20 - 6.00 m/uL [facility] WBC (Bld) [#/Vol] 10.33 10*3/uL 3.70 - 11.00 k/uL [facility] XR Lumbar spine 3 Viewson IMPRESSION: 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 Cadd Drafter: PSCB Transcribe Date/Time: Mar 13 2020 8:34A Dictated by : GABRIELLE BENTLEY MD This examination was interpreted and the report reviewed and electronically signed by: GABRIELLE BENTLEY MD on Mar 13 2020 8:35AM [facility] DIVISION OF RADIOLOGY * * *Final [...] spine are presented. FINDINGS: There are five zrd-cgt-nihcggx lumbar vertebrae. No fracture or subluxations are noted. L5-S1 disc space narrowing is demonstrated. There is significant osteophyte formation. Kissing spine seen on lateral view. DIVISION OF RADIOLOGY Provider, [facility] - 03/13/2020 * * *Final Report* [...] spine are presented. FINDINGS: There are five itx-kef-uzaerbi lumbar vertebrae. No fracture or subluxations are noted. L5-S1 disc space narrowing is demonstrated. There is significant osteophyte formation. Kissing spine seen on lateral view. 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 Cadd Drafter: PSCB Transcribe Date/Time: Mar 13 2020 8:34A Dictated by : GABRIELLE BENTLEY MD This examination was interpreted and the report reviewed and electronically signed by: GABRIELLE BENTLEY MD on Mar 13 2020 8:35AM EST [facility] XR Lumbar spine 3 ViewsOrder ed By: Ccf Provider on 03-13-2020 [facility] XR Lumbar spine 3 Viewson Radiology Study observation (narrative) [facility] PROGRESSon 06-09-2017 PROGRESS HNO ID: [id number] Author: Vesta Marin PSR Service: (none) Author Type: (none) Type: Progress Notes Filed: 06/09/2017 4:13 PM Note Text: Spoke with the patient and scheduled his Corotid Doppler on June 24, 2017 at 9:00 am Normal [facility] CNOVon 06-02-2017 CNOV Office Visit (AGCARDWST) -------ROBY FLORES ([id number]) 1935 MDate Time Provider Department06/02/17 9:00 AM [...] - METBeta jazmin for ASHD with prior LA or prior LVEFANDlt;40 (NQF 0070) - N/ABeta [...] weeks.He will be getting labs from the [facility] in the near future and I've askedfor a copy.INR has been within range. He is due today.I will see him in 8 months or as needed. If there is increased chest pain orrecurrent syncope, he has been advised to contact me.Written and verbal health teaching given to patient, patient verbalizesunderstanding and agrees with treatment plan.This note was generated using [employer] voice recognition system, and there may besome [...] There is no significantchange.Electronic ally Signed:Darrell Oliveira, [facility] 2017 9:15 [facility]: Carmen Vasquez MD 06/02/2017 9:21 [...] 24, 2017 at9:00 amReferring Provider: DARRELL OLIVEIRA [[id number]]Allergies As of Date: 06/02/2017(No Known Allergies)Date Reviewed: 06/02/2017Reviewed by: Russell ([facility]) Anabella - Fully AssessedReason for Visit: Recheck [92]Primary Visit Diagnosis:ASHD (arteriosclerotic heart disease) [I25.10] Other Visit Diagnosis:PAF (paroxysmal atrial fibrillation) (HCC) [I48.0]Order(s):ECG B/O W INTERP (MED OFFICE) [ECG06] Order #: [id number] Fosinopril Sodium 40 mg tabletTake 1/2 tablet [...] FOR* 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 Please give serious thought to the following areas and commit to making mcc changes. EAT A WHOLE FOOD, PLANT BASED [...] on file. Cosign accepted by STAS MORA MD[[id number]] on 09/30/2016 2:01 PM Fosinopril Sodium 40 [...] on file.Follow-up and Disposition History RecordedEncounter Number: [id number] Status:Closed by DARRELL OLIVEIRA MD on 06/02/17 [facility] PROGRESSon 06-02-2017 PROGRESS HNO ID: [id number] thor: Darrell Stahl: (none)Author Type: PhysicianType: Progress NotesFiled: 06/02/2017 9:31 AMNote Text:PERTINENT CARDIAC HISTORYASHD - PCI LAD 2003HTNHLCarotid diseaseSyncopePAFADHERENCE TO GUIDELINESACE-I or ARB for HF with prior LVEF<40 (NQF 0081) - N/AASA or Plavix for ASHD (NQF 0067) - METBeta jazmin for ASHD with prior LA or prior LVEF<40 (NQF 0070) - N/ABeta [...] weeks.He will be getting labs from the [facility] in the near future and I'veasked for a copy.INR has been within range. He is due today.I will see him in 8 months or as needed. If there is increased chest painor recurrent syncope, he has been advised to contact me.Written and verbal health teaching given to patient, patient verbalizesunderstanding and agrees with treatment plan.This note was generated using [employer] voice recognition system, and theremay be some [...] ectopics. There is nosignificant change.Electronically Signed:Darrell Oliveira 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 Status:Closed by DAO BISHOP on 01/23/17 [facility] Vital Signs Date Time Vital Sign Value Performing Clinician Facility 09-06-2024 14:15-0400 Body temperature 98 [degF] Dr. Stas Mora MD Work Phone: 5(477)416-294263 [place] [address] 09-06-2024 14:15-0400 Diastolic blood pressure 88 mm[Hg] Dr. Stas Mora MD Work Phone: 7(135)557-674963 [place] [address] 09-06-2024 14:15-0400 Heart rate 78 /min Dr. Stas Mora MD Work Phone: 2(537)882-225963 [place] [address] 09-06-2024 14:15-0400 Respiratory rate 18 /min Dr. Stas Mora MD Work Phone: 5(872)029-059463 [place] [address] 09-06-2024 14:15-0400 SaO2% (BldA) [Mass fraction] 97 % Dr. Stas Mora MD Work Phone: 3(620)337-339863 [place] [address] 09-06-2024 14:15-0400 Systolic blood pressure 137 mm[Hg] Dr. Stas Mora MD Work Phone: 2(963)298-920763 [place] [address] 09-04-2024 12:05-0400 Inhaled oxygen flow rate 2 L/min Dr. Stas Mora MD Work Phone: 6(326)574-570463 [place] [address] 09-01-2024 11:52-0400 Body height 182.[address] Stas Mora MD Work Phone: 9(639)787-914963 [place] [address] 09-01-2024 11:52-0400 Body mass index (BMI) [Ratio] 21.6 kg/m2 Dr. Stas Mora MD Work Phone: 3(208)249-336663 [place] [address] 09-01-2024 11:52-0400 Body weight 72.[address] Stas Mora MD Work Phone: 8(510)776-504763 [place] [address] 09-01-2024 11:00-0400 Diastolic blood pressure 79 mm[Hg] Dr. Stas Mora MD Work Phone: 6(986)357-976263 [place] [address] 09-01-2024 11:00-0400 Heart rate 70 /min Dr. Stas Mora MD Work Phone: 6(597)444-394963 [place] [address] 09-01-2024 11:00-0400 Respiratory rate 18 /min Dr. Stas Mora MD Work Phone: 4(192)338-565263 [place] [address] 09-01-2024 11:00-0400 SaO2% (BldA) [Mass fraction] 98 % Dr. Stas Mora MD Work Phone: 8(866)683-881063 [place] [address] 09-01-2024 11:00-0400 Systolic blood pressure 180 mm[Hg] Dr. Stas Mora MD Work Phone: 3(677)569-027763 [place] [address] 09-01-2024 09:52-0400 Body temperature 98.9 [degF] Dr. Stas Mora MD Work Phone: 7(562)[phone] [place] [address] 09-01-2024 07:31-0400 Body height 182.[address] Stas Mora MD Work Phone: 3(151)386-224163 [place] [address] 09-01-2024 07:31-0400 Body mass index (BMI) [Ratio] 23.4 kg/m2 Dr. Stas Mora MD Work Phone: 3(416)335-980063 [place] [address] 09-01-2024 07:31-0400 Body weight 78.[address] Stas Mora MD Work Phone: 6(865)185-790063 [place] [address] 08-31-2024 11:05-0400 Body mass index (BMI) [Ratio] 22.35 kg/m2 Luciana Cisneros MD Work Phone: [facility] 08-31-2024 11:05-0400 Body weight 73.94 kg Luciana Cisneros MD Work Phone: [facility] 08-31-2024 11:05-0400 Diastolic blood pressure 74 mm[Hg] Luciana Cisneros MD Work Phone: [facility] 08-31-2024 11:05-0400 Heart rate 74 /min Luciana Cisneros MD Work Phone: [facility] 08-31-2024 11:05-0400 Respiratory rate 12 /min Luciana Cisneros MD Work Phone: [facility] 08-31-2024 11:05-0400 SaO2% (BldA) [Mass fraction] 98 % Luciana Cisneros MD Work Phone: [facility] 08-31-2024 11:05-0400 Systolic blood pressure 124 mm[Hg] Luciana Cisneros MD Work Phone: [facility] 07-28-2024 11:12-0400 Diastolic blood pressure 78 mm[Hg] Stas Mora MD Work Phone: [facility] 07-28-2024 11:12-0400 Systolic blood pressure 136 mm[Hg] Stas Mora MD Work Phone: [facility] 07-28-2024 11:10-0400 Body mass index (BMI) [Ratio] 22.4 kg/m2 Stas Mora MD Work Phone: [facility] 07-28-2024 11:10-0400 Body weight 74.1 kg Stas Mora MD Work Phone: [facility] 07-28-2024 11:10-0400 Heart rate 56 /min Stas Mora MD Work Phone: [facility] 07-28-2024 11:10-0400 Respiratory rate 16 /min Stas Mora MD Work Phone: [facility] 06-01-2024 14:52-0400 Body height 181.9 cm Luciana Cisneros MD Work Phone: [facility] 06-01-2024 14:52-0400 Body mass index (BMI) [Ratio] 22.33 kg/m2 Luciana Cisneros MD Work Phone: [facility] 06-01-2024 14:52-0400 Body weight 73.85 kg Luciana Cisneros MD Work Phone: [facility] 06-01-2024 14:52-0400 Diastolic blood pressure 60 mm[Hg] Luciana Cisneros MD Work Phone: [facility] 06-01-2024 14:52-0400 Heart rate 46 /min Luciana Cisneros MD Work Phone: [facility] 06-01-2024 14:52-0400 SaO2% (BldA) [Mass fraction] 98 % Luciana Cisneros MD Work Phone: [facility] 06-01-2024 14:52-0400 Systolic blood pressure 132 mm[Hg] Luciana Cisneros MD Work Phone: [facility] 05-26-2024 09:18-0500 Diastolic blood pressure 82 mm[Hg] Stas Mora MD Work Phone: [facility] 05-26-2024 09:18-0500 Systolic blood pressure 144 mm[Hg] Stas Mora MD Work Phone: [facility] 05-26-2024 09:06-0500 Body mass index (BMI) [Ratio] 22.19 kg/m2 Stas Mora MD Work Phone: [facility] 05-26-2024 09:06-0500 Body weight 73.5 kg Stas Mora MD Work Phone: [facility] 05-26-2024 09:06-0500 Heart rate 56 /min Stas Mora MD Work Phone: [facility] 05-26-2024 09:06-0500 Respiratory rate 18 /min Stas Mora MD Work Phone: [facility] 04-27-2024 09:34-0500 Body height 182 cm Luciana Cisneros MD Work Phone: [facility] 04-27-2024 09:34-0500 Body mass index (BMI) [Ratio] 22.51 kg/m2 Luciana Cisneros MD Work Phone: [facility] 04-27-2024 09:34-0500 Body weight 74.57 kg Luciana Cisneros MD Work Phone: [facility] 04-27-2024 09:34-0500 Diastolic blood pressure 62 mm[Hg] Luciana Cisneros MD Work Phone: [facility] 04-27-2024 09:34-0500 Heart rate 60 /min Luciana Cisneros MD Work Phone: [facility] 04-27-2024 09:34-0500 SaO2% (BldA) [Mass fraction] 98 % Luciana Cisneros MD Work Phone: [facility] 04-27-2024 09:34-0500 Systolic blood pressure 110 mm[Hg] Luciana Cisneros MD Work Phone: [facility] 11-26-2023 10:33-0400 Diastolic blood pressure 80 mm[Hg] Stas Mora MD Work Phone: [facility] 11-26-2023 10:33-0400 Systolic blood pressure 144 mm[Hg] Stas Mora MD Work Phone: [facility] 11-26-2023 10:22-0400 Body mass index (BMI) [Ratio] 21.95 kg/m2 Stas Mora MD Work Phone: [facility] 11-26-2023 10:22-0400 Body weight 71.4 kg Stas Mora MD Work Phone: [facility] 11-26-2023 10:22-0400 Heart rate 60 /min Stas Mora MD Work Phone: [facility] 11-26-2023 10:22-0400 Respiratory rate 18 /min Stas Mora MD Work Phone: [facility] 09-15-2023 08:38-0400 Body mass index (BMI) [Ratio] 24.52 kg/m2 Stas Mora MD Work Phone: [facility] 09-15-2023 08:38-0400 Body weight 79.74 kg Stas Mora MD Work Phone: [facility] 09-15-2023 08:38-0400 Diastolic blood pressure 84 mm[Hg] Stas Mora MD Work Phone: [facility] 09-15-2023 08:38-0400 Heart rate 76 /min Stas Mora MD Work Phone: [facility] 09-15-2023 08:38-0400 Respiratory rate 18 /min Stas Mora MD Work Phone: [facility] 09-15-2023 08:38-0400 Systolic blood pressure 138 mm[Hg] Stas Mora MD Work Phone: [facility] 08-14-2023 09:57-0400 Body mass index (BMI) [Ratio] 22.59 kg/m2 Stas Mora MD Work Phone: [facility] 08-14-2023 09:57-0400 Body weight 73.48 kg Stas Mora MD Work Phone: [facility] 08-14-2023 09:57-0400 Diastolic blood pressure 80 mm[Hg] Stas Mora MD Work Phone: [facility] 08-14-2023 09:57-0400 Heart rate 64 /min Stas Mora MD Work Phone: [facility] 08-14-2023 09:57-0400 Respiratory rate 14 /min Stas Mora MD Work Phone: [facility] 08-14-2023 09:57-0400 Systolic blood pressure 140 mm[Hg] Stas Mora MD Work Phone: [facility] 06-01-2023 15:08-0400 Body weight 75.75 kg Stas Mora MD Work Phone: [facility] 06-01-2023 15:08-0400 Diastolic blood pressure 90 mm[Hg] Stas Mora MD Work Phone: [facility] 06-01-2023 15:08-0400 Heart rate 82 /min Stas Mora MD Work Phone: [facility] 06-01-2023 15:08-0400 Respiratory rate 16 /min Stas Mora MD Work Phone: [facility] 06-01-2023 15:08-0400 SaO2% (BldA) [Mass fraction] 100 % Stas Mora MD Work Phone: [facility] 06-01-2023 15:08-0400 Systolic blood pressure 140 mm[Hg] Stas Mora MD Work Phone: [facility] 02-16-2023 13:57-0500 Diastolic blood pressure 62 mm[Hg] Stas Mora MD Work Phone: [facility] 02-16-2023 13:57-0500 Heart rate 62 /min Stas Mora MD Work Phone: [facility] 02-16-2023 13:57-0500 Respiratory rate 16 /min Stas Mora MD Work Phone: [facility] 02-16-2023 13:57-0500 Systolic blood pressure 110 mm[Hg] Stas Mora MD Work Phone: [facility] 02-10-2023 16:59-0500 Diastolic blood pressure 68 mm[Hg] [facility] 02-10-2023 16:59-0500 Heart rate 79 /min [facility] 02-10-2023 16:59-0500 Respiratory rate 12 /min [facility] 02-10-2023 16:59-0500 SaO2% (BldA) [Mass fraction] 98 % [facility] 02-10-2023 16:59-0500 Systolic blood pressure 153 mm[Hg] [facility] 02-10-2023 14:37-0500 Body mass index (BMI) [Ratio] 22.1 kg/m2 [facility] 02-10-2023 14:37-0500 Body weight 74.3 kg [facility] 02-10-2023 14:32-0500 Body height 182.88 cm [facility] 02-10-2023 14:32-0500 Body temperature 98 [degF] [facility] 11-17-2022 17:22-0400 Diastolic Blood Pressure Non-Invasive 68 1 STERLING FROMMELT DO [facility] 11-17-2022 17:22-0400 Heart rate 76 /min STERLING FROMMELT DO [facility] 11-17-2022 17:22-0400 Respiratory rate 18 /min STERLING DAIGLET DO [facility] 11-17-2022 17:22-0400 Systolic Blood Pressure Non-Invasive 126 1 STERLING DAIGLET DO [facility] 11-17-2022 15:23-0400 Body height 185.4 cm STERLING DAIGLET DO [facility] 11-17-2022 15:23-0400 Body temperature 97.88 [degF] STERLING DAIGLET DO [facility] 11-17-2022 15:23-0400 Body weight 79.6 kg STERLING DAIGLET DO [facility] 11-17-2022 15:23-0400 Diastolic Blood Pressure Non-Invasive 70 1 STERLING DAIGLET DO [facility] 11-17-2022 15:23-0400 Heart rate 89 /min STERLING DAIGLET DO [facility] 11-17-2022 15:23-0400 Respiratory rate 18 /min STERLIGN DAIGLET DO [facility] 11-17-2022 15:23-0400 Systolic Blood Pressure Non-Invasive 134 1 STERLING CISNEROSMELT DO [facility] 08-26-2022 13:12-0400 Body height 180.3 cm Stas Mora MD Work Phone: [facility] 08-26-2022 13:12-0400 Body weight 78.74 kg Stas Mora MD Work Phone: [facility] 08-26-2022 13:12-0400 Diastolic blood pressure 74 mm[Hg] Stas Mora MD Work Phone: [facility] 08-26-2022 13:12-0400 Heart rate 66 /min Stas Mora MD Work Phone: [facility] 08-26-2022 13:12-0400 Respiratory rate 16 /min Stas Mora MD Work Phone: [facility] 08-26-2022 13:12-0400 Systolic blood pressure 122 mm[Hg] Stas Mora MD Work Phone: [facility] 12-26-2021 11:22-0400 Body weight 78.56 kg Stas Mora MD Work Phone: [facility] 12-26-2021 11:22-0400 Diastolic blood pressure 80 mm[Hg] Stas Mora MD Work Phone: [facility] 12-26-2021 11:22-0400 Heart rate 58 /min Stas Mora MD Work Phone: [facility] 12-26-2021 11:22-0400 Respiratory rate 16 /min Stas Mora MD Work Phone: [facility] 12-26-2021 11:22-0400 Systolic blood pressure 142 mm[Hg] Stas Mora MD Work Phone: [facility] 12-22-2021 11:13-0400 Body temperature 97.6 [degF] Dr. Stas Mora Work Phone: [facility] Work Phone: 12-22-2021 11:13-0400 Diastolic blood pressure 58 mm[Hg] Dr. Stas Mora Work Phone: [facility] Work Phone: 12-22-2021 11:13-0400 Heart rate 63 /min Dr. Stas Mora Work Phone: [facility] Work Phone: 12-22-2021 11:13-0400 Respiratory rate 16 /min Dr. Stas Mora Work Phone: [facility] Work Phone: 12-22-2021 11:13-0400 SaO2% (BldA) [Mass fraction] 96 % Dr. Stas Mora Work Phone: [facility] Work Phone: 12-22-2021 11:13-0400 Systolic blood pressure 142 mm[Hg] Dr. Stas Mora Work Phone: [facility] Work Phone: 12-21-2021 20:06-0400 Body height 182.[address] Stas Mora Work Phone: [facility] Work Phone: 12-21-2021 20:06-0400 Body mass index (BMI) [Ratio] 22.6 kg/m2 Dr. Stas Mora Work Phone: [facility] Work Phone: 12-21-2021 20:06-0400 Body weight 75.[address] Stas Mora Work Phone: [facility] Work Phone: 12-21-2021 19:15-0400 Diastolic blood pressure 81 mm[Hg] [facility] Work Phone: 12-21-2021 19:15-0400 Heart rate 70 /min [facility] Work Phone: 12-21-2021 19:15-0400 Respiratory rate 18 /min [facility] Work Phone: 12-21-2021 19:15-0400 SaO2% (BldA) [Mass fraction] 96 % [facility] Work Phone: 12-21-2021 19:15-0400 Systolic blood pressure 171 mm[Hg] [facility] Work Phone: 12-21-2021 19:02-0400 Body temperature 97.6 [degF] [facility] Work Phone: 12-21-2021 18:17-0400 Body height 182.88 cm [facility] Work Phone: 12-21-2021 18:17-0400 Body mass index (BMI) [Ratio] 24.2 kg/m2 [facility] Work Phone: 12-21-2021 18:17-0400 Body weight 80.9 kg [facility] Work Phone: 09-05-2021 11:21-0400 Body height 182.9 cm Stas Mora MD Work Phone: [facility] 09-05-2021 11:21-0400 Body weight 80.2 kg Stas Mora MD Work Phone: [facility] 09-05-2021 11:21-0400 Diastolic blood pressure 70 mm[Hg] Stas Mora MD Work Phone: [facility] 09-05-2021 11:21-0400 Heart rate 62 /min Stas Mora MD Work Phone: [facility] 09-05-2021 11:21-0400 Respiratory rate 16 /min Stas Mora MD Work Phone: [facility] 09-05-2021 11:21-0400 Systolic blood pressure 136 mm[Hg] Stas Mora MD Work Phone: [facility] 07-08-2021 10:41-0400 Body weight 83.55 kg Stas Mora MD Work Phone: [facility] 07-08-2021 10:41-0400 Diastolic blood pressure 78 mm[Hg] Stas Mora MD Work Phone: [facility] 07-08-2021 10:41-0400 Heart rate 60 /min Stas Mora MD Work Phone: [facility] 07-08-2021 10:41-0400 Respiratory rate 16 /min Stas Mora MD Work Phone: [facility] 07-08-2021 10:41-0400 Systolic blood pressure 120 mm[Hg] Stas Mora MD Work Phone: [facility] Encounters Encounter Date Encounter Type Care Provider Facility Start: 09-29-2024 ambulatory Efewongbe Oleghe OLS Fa cility:[facility] Start: 09-28-2024 ambulatory Efewongbe Oleghe OLS Fa cility:[facility] Start: 09-26-2024 ambulatory Efewongbe Oleghe OLS Fa cility:[facility] Start: 09-23-2024 ambulatory Efewongbe Oleghe OLS Fa cility:[facility] Start: 09-21-2024 End: 09-22-2024 Telephone encounter Stas Mora MD Work Phone: [facility] Start: 09-21-2024 ambulatory Efewongbe Oleghe OLS Fa cility:[facility] Start: 09-19-2024 ambulatory Efewongbe Oleghe OLS Fa cility:[facility] Start: 09-15-2024 ambulatory Efewongbe Oleghe OLS Fa cility:[facility] Start: 09-14-2024 ambulatory Efewongbe Oleghe OLS Fa cility:[facility] Start: 09-12-2024 ambulatory Efewongbe Oleghe OLS Fa cility:[facility] Start: 09-08-2024 ambulatory Efewongbe Oleghe OLS Fa cility:[facility] Start: 09-07-2024 ambulatory Efewongbe Oleghe OLS Fa cility:[facility] Start: 09-06-2024 Non-patient / Non-visit Dr. Navid Dominguez MD -[facility] Work Phone: Start: 09-05-2024 Non-patient / Non-visit Dr. Navid Dominguez MD -[facility] Work Phone: Start: 09-04-2024 Non-patient / Non-visit Dr. Jia Wells MD -[facility] Work Phone: Start: 09-03-2024 Non-patient / Non-visit Dr. Jia Wells MD -[facility] Work Phone: Start: 09-02-2024 Non-patient / Non-visit Dr. Jia Wells MD -[facility] Work Phone: Start: 09-02-2024 ambulatory Navid Dominguez [place] [facility] Start: 09-02-2024 End: 09-06-2024 Evaluation and management of inpatient Dr. Navid Dominguez MD -[facility] Work Phone: Start: 09-01-2024 End: 09-01-2024 Telephone encounter [place] [facility] Work Phone: [facility] Comment on above: Medication Problem ( Cost) Start: 09-01-2024 ambulatory Kathy Wells [place] :[facility] Start: 09-01-2024 Evaluation and management of inpatient Dr. Kathy Wells MD -[facility] Work Phone: Start: 09-01-2024 Non-patient / Non-visit Dr. Jia Wells MD -[facility] Work Phone: Start: 09-01-[address] Stas Mora MD Work Phone: [facility] Work Phone: Start: 08-31-2024 End: 08-31-2024 Telephone encounter Coretta Jalloh [facility]ulatory Telemanagement Comment on above: Anticoagulation Tele phone Fu (Home INR result ) Start: 08-31-2024 End: 08-31-2024 ambulatory STAS MORA Facility:[facility] Start: 08-31-2024 End: 08-31-2024 Office outpatient visit 25 minutes Luciana Cisneros MD Work Phone: Geriatrics Comment on above: Moderate dementia wi thout behavioral disturbance, psychotic disturbance, mood disturbance, or anxiety, unspecified dementia type (HCC) (Primary Dx); Hallucinations; Screening for depression; Encounter for screening examination for other mental health and behavioral disorders Start: 08-31-2024 End: 08-31-2024 ambulatory [facility] Facility:[facility] Start: 08-03-2024 End: 08-03-2024 Telephone encounter Coretta Jalloh [facility]ulatory Telemanagement Comment on above: Anticoagulation Tele phone Fu (Lab INR result) Start: 08-03-2024 End: 08-03-2024 ambulatory [facility] Facility:[facility] Start: 07-28-2024 End: 07-28-2024 Office outpatient visit 15 minutes Stas Mora MD Work Phone: [facility] [place] Comment on above: Bursitis of right el bow, unspecified bursa (Primary Dx) Start: 07-28-2024 End: 07-28-2024 [facility] Facility:[facility] Start: 07-06-2024 End: 07-06-2024 [facility] Telemanagement Comment on above: Anticoagulation Tele phone Fu (Lab INR result ) Start: 07-06-2024 End: 07-06-2024 ambulatory [facility] Facility:[facility] Start: 06-29-2024 End: 06-29-2024 Telephone encounter Coretta Jalloh [facility]ulatory Telemanagement Comment on above: Anticoagulation Tele phone Fu (Lab INR result ) Start: 06-29-2024 End: 06-29-2024 [facility] Facility:[facility] Start: 06-01-2024 End: 06-01-2024 Office consultation new/estab patient 80 min Luciana Cisneros MD Work Phone: Geriatrics Comment on above: Mixed dementia (HCC) (Primary Dx); Vascular parkinsonism (HCC) Start: 06-01-2024 End: 06-01-2024 ambulatory [facility] Facility:[facility] Start: 06-01-2024 End: 08-01-2024 Follow-up encounter Luciana Cisneros MD Work Phone: Geriatrics Start: 05-26-2024 End: 05-26-2024 Telephone encounter Luciana Cisneros MD Work Phone: Geriatrics Comment on above: Appointment (Resched ule for geriatric f/u) Start: 05-26-2024 End: 05-26-2024 ambulatory STAS MORA Facility:[facility] Start: 05-26-2024 End: 05-26-2024 Patient encounter procedure Stas Mora MD Work Phone: [facility] [place] Comment on above: Essential hypertensi on, benign (Primary Dx); Hyperlipidemia, unspecified hyperlipidemia type; Atherosclerosis 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, unspecified vessel or lesion type, unspecified whether [place] or transplanted heart; Paroxysmal atrial fibrillation (HCC); Edema of both lower legs; History of stroke with residual effects; Dementia, unspecified dementia severity, unspecified dementia type, unspecified whether behavioral, psychotic, or mood disturbance or anxiety (HCC) Start: 05-25-2024 End: 05-25-2024 Telephone encounter Paige Hickman [facility]ulatory Telemanagement Comment on above: Anticoagulation Tele phone Fu (Lab INR Result ) Start: 05-25-2024 End: 05-25-2024 [facility] Start: 05-23-2024 ambulatory LUCIANA CISNEROS Facility :[id number] Start: 05-23-2024 End: 05-23-2024 Subsequent hospital visit by physician [facility] Work Phone: [facility] Comment on above: Cognitive impairment , mild, 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] Start: 04-28-2024 End: 04-29-2024 Telephone encounter Stas Mora MD Work Phone: [facility] [place] Comment on above: Results Start: 04-27-2024 End: 04-27-2024 Telephone encounter Coretta Jalloh [facility]ulatory Telemanagement Comment on above: Anticoagulation Tele phone Fu (Lab INR result ) Start: 04-27-2024 End: 04-27-2024 ambulatory STAS MORA Facility:[facility] Start: 04-27-2024 End: 04-27-2024 Assmt & care planning pt w/cognitive impairment Luciana Cisneros MD Work Phone: Geriatrics Comment on above: Dementia, unspecifie d dementia severity, unspecified dementia type, unspecified whether behavioral, psychotic, or mood disturbance or anxiety (HCC) (Primary Dx); Cognitive impairment; Cognitive impairment, mild, so stated; Shuffling gait; Ambulatory dysfunction; Balance disorder Start: 04-27-2024 End: 04-27-2024 ambulatory STAS MROA Facility:[facility] Start: 04-25-2024 End: 04-25-2024 Telephone encounter Stas Mora MD Work Phone: [facility] Comment on above: memory issues Start: 04-13-2024 End: 04-13-2024 Telephone encounter Coretta Jalloh [facility]ulatory Telemanagement Comment on above: Anticoagulation Tele phone Fu (Home INR result ) Start: 04-13-2024 End: 04-13-2024 [facility] Start: 03-30-2024 End: 03-30-2024 Telephone encounter Coretta Jalloh [facility]ulatory Telemanagement Comment on above: Anticoagulation Tele phone Fu (Lab INR result ) Start: 03-30-2024 End: 03-30-2024 ambulatory IVANHOE Maya [facility] Facility:[facility] Start: 03-17-2024 End: 03-17-2024 Telephone encounter Josy Gandhi [facility] Comment on above: Anticoagulation Tele phone Fu (Lab INR result ) Start: 03-17-2024 End: 03-17-2024 [facility]ulatory [facility] Start: 03-03-2024 End: 03-03-2024 Telephone encounter Elise Paredes [facility]ulatory Telemanagement Comment on above: Anticoagulation Tele phone Fu (Lab INR result) Start: 03-03-2024 End: 03-03-2024 [facility]ulatory [facility] Start: 02-10-2024 End: 02-10-2024 Telephone encounter Coretta Jalloh [facility]ulatory Telemanagement Comment on above: Anticoagulation Tele phone Fu (Lab INR result ) Start: 02-10-2024 End: 02-10-2024 ambulatory STAS Maya [facility] Facility:[facility] Start: 01-20-2024 End: 01-20-2024 Telephone encounter Coretta Jalloh [facility]ulatory Telemanagement Comment on above: Anticoagulation Tele phone Fu (Lab INR results ) Start: 01-20-2024 End: 01-20-2024 ambulatory [facility] Facility:[facility] Start: 01-04-2024 End: 01-04-2024 Telephone encounter Stas Mora MD Work Phone: [facility] [place] Comment on above: Medication Request Start: 12-24-2023 End: 12-24-2023 Telephone encounter Elise Paredes [facility]ulatory Telemanagement Comment on above: Anticoagulation Tele phone Fu (Lab INR) Start: 12-23-2023 End: 12-23-2023 ambulatory [facility] Facility:[facility] Start: 12-10-2023 End: 12-10-2023 Telephone encounter Elise Paredes [facility]ulatory Telemanagement Comment on above: Anticoagulation Tele phone Fu (Lab INR) Start: 12-09-2023 End: 12-09-2023 ambulatory [facility] Facility:[facility] Start: 11-26-2023 End: 11-26-2023 Telephone encounter Elise Paredes [facility] Ambulatory Telemanagement Comment on above: Anticoagulation Tele phone Fu (Lab INR) Start: 11-26-2023 End: 11-26-2023 ambulatory [facility] Facility:[facility] Start: 11-26-2023 End: 11-26-2023 Patient encounter procedure Stas Mora MD Work Phone: [facility] Comment on above: Essential hypertensi on, benign (Primary Dx); Hyperlipidemia, unspecified hyperlipidemia type; Edema of both lower legs; Paroxysmal atrial fibrillation (HCC); History of stroke with residual effects; 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, psychotic disturbance, mood disturbance, or anxiety (HCC); Urinary frequency; Abnormal CBC Start: 11-18-2023 End: 11-18-2023 Telephone encounter Coretta Jalloh [facility] Ambulatory Telemanagement Comment on above: Anticoagulation Tele phone Fu (Home INR) Start: 11-18-2023 End: 11-18-2023 ambulatory [facility] Facility:[facility] Start: 11-16-2023 End: 11-16-2023 Refill Stas Mora MD Work Phone: [facility] [place] Comment on above: Refill Request Start: 10-14-2023 Telephone encounter Corettaubaldo Jalloh [facility] Tele[facility] Comment on above: Anticoagulation Tele phone Fu (Home INR results ) Start: 10-14-2023 End: 10-14-2023 ambulatory STAS MORA Facility:[facility] Start: 09-16-2023 Telephone encounter Colleen Sommer [facility] Ambulatory Telemanagement Comment on above: Anticoagulation Tele phone Fu Start: 09-15-2023 End: 09-15-2023 Patient encounter procedure Stas Mora MD Work Phone: [facility] [place] Comment on above: Edema of both lower legs (Primary Dx) Start: 09-14-2023 End: 09-14-2023 ambulatory Nurse Intm/Famp Triage [facility] Work Phone: Nurse Phone Triage Comment [...] encounter procedure Stas Mora MD Work Phone: [facility] [place] Comment on above: Moderate vascular de mentia [...] results ) Start: 07-16-2023 Refill Elvis RASHID RN.FIBERGLASS TECHNICIAN Work Phone: [facility] [place] Comment on above: Refill Request Start: [...] Anticoagulation Start: 06-08-2023 Telephone encounter Jenna Armenta idof LOAN SERVICING SPECIALIST.FIBERGLASS TECHNICIAN Work Phone: [facility] [place] Comment on above: Erroneous encounter- disregard Anticoagulation Start: 06-05-2023 Telephone encounter Jenna Armenta idof LOAN SERVICING SPECIALIST.FIBERGLASS TECHNICIAN Work Phone: [facility] [place] Comment on above: Results (Labs, Criti cleopatra ) Start: 06-04-2023 ambulatory Hortencia Winston RN NURSE O N CALL Comment on above: Results, Lab High Protime and INR Start: 06-04-2023 E-mail encounter fro m caregiver Jasmin Bell MD Work Phone: [facility] [place] Start: 06-04-2023 Telephone encounter Jenna Armenta nhof LOAN SERVICING SPECIALIST.FIBERGLASS TECHNICIAN Work Phone: [facility] [place] Comment on above: Results; Orders (Lab s ) Start: 06-03-2023 Telephone encounter Coretta [facility]oh [facility] Ambulatory Telemanagement Comment on above: Anticoagulation Tele phone Fu (Lab INR results ) Start: 06-01-2023 End: 06-01-2023 Patient encounter procedure Stas Mora MD Work Phone: [facility] [place] Comment on above: Essential hypertensi on, benign (Primary Dx); Paroxysmal atrial fibrillation (HCC); Atherosclerosis 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, unspecified vessel or lesion type, unspecified whether [place] or transplanted heart; Hyperlipidemia, unspecified hyperlipidemia type; [...] results) Start: 05-13-2023 Telephone encounter Senia Phillips [facility] Ambulatory Telemanagement Comment on above: [...] ) Start: 02-20-2023 Telephone encounter Elise Paredes [facility] Comment on above: Anticoagulation Tele phone Fu (Lab INR) Start: 02-17-2023 Telephone encounter Stas miranda MD Work Phone: [facility] [place] Comment on above: Results Start: 02-17-2023 End: 02-17-2023 Subsequent hospital visit by physician [employer] [facility] (I-Stat/1.5t) Work Phone: Radiology Comment on above: Cerebral infarction, unspecified mechanism (HCC) [I63.9] Start: 02-16-2023 End: 02-16-2023 Patient encounter procedure Stas Mora MD Work Phone: [facility] Comment on above: Cerebral infarction, unspecified mechanism (HCC) (Primary Dx); Generalized weakness; Speech disturbance, unspecified type; Hyperlipidemia, unspecified hyperlipidemia type; Essential hypertension, benign; Paroxysmal atrial fibrillation (HCC) Start: 02-13-2023 Telephone encounter Elise Paredes [facility] Ambulatory Telemanagement Comment on above: Anticoagulation Tele phone Fu (Lab INR) Start: 02-10-2023 End: 02-10-2023 Emergency department patient visit [facility] Work Phone: Start: 02-06-2023 Telephone encounter Senia Phillips h P [facility] Comment on above: Anticoagulation Tele phone Fu (INR Lab Result) Start: 01-19-2023 Telephone encounter [facility] Comment on above: Anticoagulation Tele phone Fu Start: 01-16-2023 Orders Only Stas newman MD Work Phone: [facility] Comment on above: assisted current us e of anticoagulant (Primary Dx); [...] Result) Start: 11-21-2022 Telephone encounter Jeimy Duong [facility] harm[facility] Comment on above: Anticoagulation Tele phone Fu (Lab INR result) Start: 11-17-2022 End: 11-17-2022 Emergency department patient visit NONE PHYSICIAN Facility:B Start: 11-17-2022 End: 11-17-2022 Emergency department patient visit STERLING LYNCH DO [place] Start: 11-07-2022 Telephone encounter Senia Cross RPh [...] result Start: 09-26-2022 Telephone encounter Jeimy Duong [facility] Comment on above: Anticoagulation Tele phone Fu (Lab INR result) Start: 09-12-2022 Telephone encounter Jeimy Duong [facility] Comment on above: Anticoagulation Tele phone Fu (Lab INR result) Start: 08-26-2022 End: 08-26-2022 Patient encounter procedure Stas Mora MD Work Phone: [facility] [place] Comment on above: Encounter for Medica re [...] Result) Start: 07-04-2022 Telephone encounter Lety Gandara [facility] Comment on above: Anticoagulation Tele phone Fu (Lab INR result ) Start: 06-23-2022 Refill Elvis RASHID RN.FIBERGLASS TECHNICIAN Work Phone: [facility] Comment on above: Refill Request Start: 06-20-2022 Telephone encounter Senia Cross RPh P [facility] Comment on above: Anticoagulation Tele phone Fu (INR Lab Result) Start: 06-06-2022 Telephone encounter Senia Cross RPh P [facility] Comment on above: Anticoagulation Tele phone Fu (INR Lab Result) Start: 05-30-2022 Telephone encounter Stas miranda MD Work Phone: [facility] [place] Comment on above: Opened In Error Start: 05-22-2022 Telephone encounter Jenna Armenta nhof LOAN SERVICING SPECIALIST.FIBERGLASS TECHNICIAN Work Phone: [facility] [place] Comment on above: Results (X-ray hip) Start: 05-21-2022 End: 05-21-2022 Subsequent hospital visit by physician Jaymie [facility] [place] Work Phone: Radiology Comment on above: Left hip pain [M25.5 52] Start: 05-21-2022 ambulatory Fani Grace RN NURSE O N CALL Comment on above: Fall Fall; Hip Pain Start: 05-19-2022 Telephone encounter Stas miranda MD Work Phone: [facility] [place] Comment on above: Anticoagulation Start: [...] Result) Start: 04-04-2022 Telephone encounter Elise Paredes [facility] Comment on above: Anticoagulation Tele phone Fu (Lab INR) Start: 03-31-2022 Telephone encounter Stas miranda MD Work Phone: [facility] [place] Comment on above: Release Of Medical R ecords (DC PCP) Start: 03-21-2022 Telephone encounter Carmelina Cruz [facility] Comment on above: Anticoagulation Tele phone Fu Start: 02-21-2022 Telephone encounter Kristian Ferguson MD Work Phone: [facility] [place] Comment on above: Anticoagulation Start: 02-10-2022 Telephone encounter Stas miranda MD Work Phone: [facility] [place] Comment on above: Opened In Error Start: 01-27-2022 Telephone encounter [facility] Comment on above: Anticoagulation Tele phone Fu (Lab INR Result) Start: 01-20-2022 Telephone encounter [facility] Comment on above: Anticoagulation Tele phone Fu (Lab INR Result) Start: 01-17-2022 Telephone encounter Stas miranda MD Work Phone: [facility] Comment on above: Anticoagulation; Cri tical Results (INR) Start: 01-13-2022 Refill Stas newman MD Work Phone: [facility] Comment on above: Refill Request; Refi ll Request Start: 01-03-2022 Telephone encounter Senia Alan [facility] Tele[facility] Comment on above: Anticoagulation Tele phone Fu (INR Home Test Result) Start: 01-02-2022 Telephone encounter Stas miranda MD Work Phone: [facility] Comment on above: Results Start: 12-26-2021 End: 12-26-2021 Patient encounter procedure Stas Mora MD Work Phone: [facility] Comment on above: Hospital discharge f ollow-up (Primary Dx); Encounter for immunization; TIA (transient ischemic attack); Thyroid nodule; Essential hypertension, benign; Paroxysmal atrial fibrillation (HCC); Atherosclerosis 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, unspecified vessel or lesion type, unspecified whether [place] or transplanted heart Start: 12-22-2021 Non-patient / Non-visit Dr. Maria E Mora Work Phone: [facility] Start: 12-21-2021 Non-patient / Non-visit Dr. Maria E Mora Work Phone: [facility] Start: 12-21-2021 End: 12-22-2021 Evaluation and management of inpatient [facility] Start: 12-21-2021 End: 12-22-[address] Stas Mora Work Phone: [facility] Work Phone: Start: 12-20-2021 Telephone encounter Stas miranda MD Work Phone: [facility] [place] Comment on above: Opened In Error Anticoagulation Tele phone Fu (INR Lab Result) Start: 12-06-2021 Telephone encounter Senia Alan [facility] P harm[facility] Tele[facility] Comment on above: Anticoagulation Tele phone Fu (INR Lab Result) Start: 11-22-2021 Telephone encounter Janice Huang [facility] Tele[facility] Comment on above: Anticoagulation Tele phone Fu (INR) Start: 11-08-2021 Telephone encounter Stas miranda MD Work Phone: [facility] [place] Comment on above: Opened In Error Anticoagulation Tele phone Fu (INR Lab Result) Start: 10-25-2021 Telephone encounter Janice Sal [facility] Comment on above: Anticoagulation Tele phone Fu (lab INR ) Start: 09-27-2021 Telephone encounter Yomi Covarrubiaszman [facility] Telemanagement Comment on above: Anticoagulation Tele phone Fu (Lab INR Result) Start: 09-13-2021 Orders Only Stas newman MD Work Phone: [facility] [place] Comment on above: assisted current us e of anticoagulant (Primary Dx); Encounter for monitoring Coumadin therapy Anticoagulation Tele phone Fu (INR Lab Result) Start: 09-05-2021 End: 09-05-2021 Patient encounter procedure Stas Mora MD Work Phone: [facility] [place] Comment on above: Encounter for Medica re annual wellness exam (Primary Dx); Paroxysmal atrial fibrillation (HCC); Essential hypertension, benign Start: 08-30-2021 Telephone encounter Jenna Armenta nhof LOAN SERVICING SPECIALIST.FIBERGLASS TECHNICIAN Work Phone: [facility] [place] Comment on above: Orders (INR ) Anticoagulation Tele phone Fu (INR Lab Result) Start: 08-16-2021 Orders Only Stas newman MD Work Phone: [facility] [place] Comment on above: Anticoagulation Start: 08-02-2021 Telephone encounter Senia Alan [facility] Tele[facility] Comment on above: Anticoagulation Tele phone Fu (INR Lab Result) Start: 07-16-2021 Telephone encounter Stas miranda MD Work Phone: [facility] Comment on above: Results Start: 07-13-2021 Refill Elvis RASHID RN.FIBERGLASS TECHNICIAN Work Phone: [facility] Comment on above: Refill Request Start: 07-08-2021 End: 07-08-2021 Patient encounter procedure Stas Mora MD Work Phone: [facility] Comment on above: Essential hypertensi on, benign (Primary Dx); Atherosclerosis 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, unspecified vessel or lesion type, unspecified whether [place] or transplanted heart; Paroxysmal atrial fibrillation (HCC); Primary osteoarthritis of both knees Start: 07-03-2021 Telephone encounter Stas miranda MD Work Phone: [facility] Comment on above: Anticoagulation Tele phone Fu (Lab INR result) Start: 06-12-2021 Telephone encounter Stas miranda MD Work Phone: [facility] Comment on above: Anticoagulation (Lab INR result) Start: 03-12-2020 End: 03-12-2020 Subsequent hospital visit by physician Xr [facility] [place] Work Phone: Radiology Comment on above: Acute right-sided lo w back pain, unspecified whether sciatica present [M54.5] Start: 02-02-2018 Ambulatory DARRELL OLIVEIRA Facility :[facility] Start: 06-02-2017 End: 06-02-2017 [facility]ulatory [facility] Procedures Date Procedure Procedure Detail Performing Clinician [...] Adult depression scr eening assessment Coretta Jalloh [facility] Start: 02-17-2023 Mri brain brain stem w/o contrast material Stas Mora MD Work Phone: Start: 02-10-2023 Plain chest X-ray Start: 02-10-2023 SARS-CoV-2 & FLU Ant igen (Rapid) Start: 05-21-2022 Radex hip unilateral with pelvis 2-3 views Jenna Fitzpatrick APRN.FIBERGLASS TECHNICIAN Work Phone: Start: 05-19-2022 PROTHROMBIN TIME/PT [facility] [...] Detail Author Start: 02-27-2031 Urine microalbumin profile [facility] Start: 05-26-2027 Diabetes Screening Diabetes Screenin g [facility] Start: 06-02-2026 Diabetes Screening Diabetes Screensc g [facility] Start: 08-15-2025 DIABETES SCREEN DIABETES SCREEN [facility] Start: 08-15-2025 Diabetes Screening Diabetes Screenin g [facility] Start: 05-25-2025 Hepatitis B surface antibody level LDL Cholesterol [facility] Start: 03-30-2025 End: 03-30-2025 Patient encounter procedure 03/30/2025 11:00 AM EST Office Visit Geriatrics [address] [place], [place] [phone] Luciana Cisneros MD [address] [place], [place] [address] follow up 6 months Geriatrics Comment on above: follow up 6 months Start: 02-21-2025 DIABETES SCREEN DIABETES SCREEN [facility] Start: 12-06-2024 DIABETES SCREEN DIABETES SCREEN [facility] Start: 12-05-2024 End: 12-05-2024 Patient encounter procedure 12/05/2024 12:40 PM EDT Office Visit [facility] [place] [address] [facility] [place] [address] Stas Mora MD [address] [place], [place] [phone] reschedule from 12/01 [facility] [place] Comment on above: reschedule from 12/01 Start: 12-01-2024 End: 12-01-2024 Patient encounter procedure 12/01/2024 9:40 AM EDT Office Visit [facility] [place] [address] [place], [place] [id number] Stas Mora MD [address] [place], [place] [address] 6 mo f/u [facility] [place] Comment on above: 6 mo f/u Start: 11-26-2024 End: 02-25-2025 CBC W Auto Differential panel - Blood COMPLETE BLOOD COUNT AND DIFFERENTIAL Lab Routine Essential hypertension, benign Expected: 11/26/2024 (Approximate), Expires: 02/25/2025 [facility] Comment on above: Expected: 11/26/2024 (Approximate), Expires: 02/25/2025 Start: 11-26-2024 End: 02-25-2025 Comprehensive metabolic 2000 panel - Serum or Plasma COMPREHENSIVE METABOLIC PANEL Lab Routine Essential hypertension, benign Hyperlipidemia, unspecified hyperlipidemia type Expected: 11/26/2024 (Approximate), Expires: 02/25/2025 [facility] Work Phone: Comment on above: Expected: 11/26/2024 (Approximate), Expires: 02/25/2025 Start: 11-26-2024 End: 02-25-2025 Lipid 1996 panel - Serum or Plasma LIPID PANEL BASIC Lab Routine Essential hypertension, benign Hyperlipidemia, unspecified hyperlipidemia type Expected: 11/26/2024 (Approximate), Expires: 02/25/2025 [facility] Comment on above: Expected: 11/26/2024 (Approximate), Expires: 02/25/2025 Start: 11-25-2024 RSV Vaccine (1 - 1-d ose 60+ series) RSV Vaccine (1 - 1-dose 60+ series) [facility] Comment on above: Postponed from 08/12 (Declined at this time) Start: 11-25-2024 RSV Vaccine (1 - 1-d ose 75+ series) RSV Vaccine (1 - 1-dose 75+ series) [facility] Comment on above: Postponed from 08/12 (Declined at this time) Start: 11-21-2024 Influenza vaccination Influenza Vacc ine (#1) [facility] Start: 09-06-2024 Patient discharge [facility] Start: 09-02-2024 Admission procedure [facility] Start: 09-01-2024 End: 09-02-2024 [facility] Start: 09-01-2024 Blood culture Blood Culture [facility] Start: 09-01-2024 Application of intermittent pneumatic compression device [facility] Start: 09-01-2024 Fall prevention [facility] Start: 09-01-2024 Oxygen therapy [facility] Start: 09-01-2024 Provision of activit y privileges [facility] Start: 09-01-2024 Assessment of risk o f venous thromboembolism [facility] Start: 09-01-2024 Insertion of cathete r into peripheral vein [facility] Start: 09-01-2024 Providing care accor ding to standard [facility] Start: 09-01-2024 Referral to occupati onal therapist [facility] Start: 09-01-2024 Referral to service [facility] Start: 09-01-2024 [facility] Start: 09-01-2024 Following clinical pathway protocol [facility] Start: 09-01-2024 Admission procedure [facility] Start: 09-01-2024 Hospital admission, emergency, from emergency room, medical nature [facility] Start: 08-31-2024 End: 08-31-2024 Patient encounter procedure 08/31/2024 11:00 AM EDT Office Visit Geriatrics [address] [place] [address] Luciana Cisneros MD [address] [place] [address] 3 month f/u Geriatrics Comment on above: 3 month f/u Start: 2024 Anxiety Screening Anxiety Screening [facility] Start: 2024 Depression Screening Depression Scre ening [facility] Start: 07-08-2024 DIABETES SCREEN DIABETES SCREEN [facility] Start: 06-02-2024 Hepatitis B surface antibody level LDL Cholesterol [facility] Start: 06-01-2024 End: 06-01-2024 Patient encounter procedure 06/01/2024 3:00 PM EDT Office Visit Geriatrics [address] [place] [address] Luciana Cisneros MD [address] [place] [address] Follow up visit for MRI [facility] Comment on above: Follow up visit for MRI Start: 06-01-2024 Covid-19 Vaccine () Covid-19 Vaccine ( season) [facility] Start: 05-30-2024 End: 05-30-2024 Patient encounter procedure 05/30/2024 11:20 AM EDT Office Visit Internal Medicine [place] [address] [place] [address] Luciana Cisneros MD [address] [place] [address] Follow up visit for MRI [facility] [place] Comment on above: Follow up visit for MRI Start: 05-26-2024 End: 05-26-2024 Patient encounter procedure 05/26/2024 9:20 AM EST Office Visit Family Medicine [place] [address] [place] [address] Stas Mora MD [address] [place] [address] 6 mo f/u [facility] [place] Comment on above: 6 mo f/u Start: 05-25-2024 End: 08-24-2024 CBC W Auto Differential panel - Blood COMPLETE BLOOD COUNT AND DIFFERENTIAL Lab Routine Abnormal CBC Expected: 05/25/2024 (Approximate), Expires: 08/24/2024 [facility] Comment on above: Expected: 05/25/2024 (Approximate), Expires: 08/24/2024 Start: 05-25-2024 End: 08-24-2024 Comprehensive metabolic 2000 panel - Serum or Plasma COMPREHENSIVE METABOLIC PANEL Lab Routine Essential hypertension, benign Hyperlipidemia, unspecified hyperlipidemia type Expected: 05/25/2024 (Approximate), Expires: 08/24/2024 [facility] Work Phone: Comment on above: Expected: 05/25/2024 (Approximate), Expires: 08/24/2024 Start: 05-25-2024 End: 08-24-2024 Lipid 1996 panel - Serum or Plasma LIPID PANEL BASIC Lab Routine Essential hypertension, benign Hyperlipidemia, unspecified hyperlipidemia type Expected: 05/25/2024 (Approximate), Expires: 08/24/2024 [facility] Comment on above: Expected: 05/25/2024 (Approximate), Expires: 08/24/2024 Start: 05-25-2024 End: 05-25-2024 ambulatory 05/25/2024 8:30 AM EST Results Only [place] [facility] [address] [facility] [place] [id number] [place] [facility] Start: 05-23-2024 End: 05-23-2024 Patient encounter procedure 05/23/2024 2:30 PM EST Appointment [facility] [address] [place] [address] Cognitive impairment, mild, 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] [facility] Comment on above: Cognitive impairment , mild, 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] Start: 04-29-2024 End: 04-29-2024 Patient encounter procedure 04/29/2024 3:40 PM EST Office Visit [facility] [place] [address] [facility] [place] [id number] Stas Mora MD [address] [facility] [address] memory issues,See TE [facility] [place] Comment on above: memory issues,See TE Start: 04-27-2024 End: 04-27-2024 Patient encounter procedure 04/27/2024 9:30 AM EST Office Visit Geriatrics [address] [facility] [place] [address] Luciana Cisneros MD [address] [facility] [place] [address] Dementia, unspecified dementia severity, unspecified dementia type, unspecified whether behavioral, psychotic, or mood disturbance or anxiety (HCC) [F03.90] Geriatrics Comment on above: Dementia, unspecifie d dementia severity, unspecified dementia type, unspecified whether behavioral, psychotic, or mood disturbance or anxiety (HCC) [F03.90] Start: 03-23-2024 Advance Directive Discussion Advance Directive Discussion [facility] Start: 03-23-2024 Medicare Advantage A nnual Wellness Visit Medicare Advantage Annual Wellness Visit [facility] Start: 03-13-2024 DIABETES SCREEN DIABETES SCREEN [facility] Start: 11-26-2023 End: 11-26-2023 Patient encounter procedure [facility] [place] Comment on above: 6 month follow up 6 month follow up, jessica bashir, on aricept x 3 months Start: 11-22-2023 Covid-19 Vaccine ( season) Covid-19 Vaccine ( season) [facility] Start: 11-22-2023 Influenza vaccination Influenza Vacc ine (#1) [facility] Start: 09-15-2023 End: 09-15-2023 Patient encounter procedure 09/15/2023 8:40 AM EDT Office Visit [facility] [place] [address] [place], [place] [id number] Stas Mora MD [address] [place], [place] [phone] leg swelling- both legs--See triage 09/14/2023. [facility] [place] Comment on above: leg swelling- both l egs--See triage 09/14/2023. Start: 08-16-2023 Hepatitis B surface antibody level LDL CHOLESTEROL [facility] Start: 08-14-2023 End: 08-14-2023 Patient encounter procedure 08/14/2023 10:00 AM EDT Office Visit [facility] [place] [address] [facility] [place], [place] [address] Stas Mora MD [address] [place], [place] [phone] Memory Issues [facility] [place] Comment on above: Memory Issues Start: 06-04-2023 End: 09-03-2023 Ferritin [Mass/volume] in Serum or Plasma [facility] Work Phone: Comment on above: Expected: 06/04/2023 , Expires: 09/03/2023 Start: 06-04-2023 End: 09-03-2023 Iron and Iron binding capacity panel - Serum or Plasma [facility] Work Phone: Comment on above: Expected: 06/04/2023 , Expires: 09/03/2023 Start: 06-01-2023 End: 08-31-2023 CBC panel - Blood by Automated count CBC Lab Routine Paroxysmal atrial fibrillation (HCC) Essential hypertension, benign Expected: 06/01/2023 (Approximate), Expires: 08/31/2023 [facility] Work Phone: Comment on above: Expected: 06/01/2023 (Approximate), Expires: 08/31/2023 Start: 06-01-2023 End: 08-31-2023 Comprehensive metabolic 2000 panel - Serum or Plasma COMP METABOLIC PANEL Lab Routine Paroxysmal atrial fibrillation (HCC) Essential hypertension, benign Hyperlipidemia, unspecified hyperlipidemia type Expected: 06/01/2023 (Approximate), Expires: 08/31/2023 [facility] Work Phone: Comment on above: Expected: 06/01/2023 (Approximate), Expires: 08/31/2023 Start: 06-01-2023 End: 08-31-2023 Lipid 1996 panel - Serum or Plasma LIPID PANEL BASIC Lab Routine Paroxysmal atrial fibrillation (HCC) Essential hypertension, benign Hyperlipidemia, unspecified hyperlipidemia type Expected: 06/01/2023 (Approximate), Expires: 08/31/2023 [facility] Work Phone: Comment on above: Expected: 06/01/2023 (Approximate), Expires: 08/31/2023 Start: 05-13-2023 Covid-19 Vaccine () Covid-19 Vaccine () [facility] Start: 03-23-2023 Advance Directive Discussion Advance Directive Discussion [facility] Start: 03-23-2023 Behavioral Health Screening Behavioral Health Screening [facility] Start: 03-23-2023 Depression Assessment Depression Ass essment [facility] Start: 02-21-2023 Hepatitis B surface antibody level LDL CHOLESTEROL [facility] Start: 02-10-2023 [facility] Start: 12-06-2022 Hepatitis B surface antibody level LDL CHOLESTEROL [facility] Start: 11-21-2022 Covid-19 Vaccine () Covid-19 Vaccine () [facility] Start: 11-21-2022 Influenza vaccination [facility] Start: 09-05-2022 PNEUMOCOCCAL: 65+ (2 - PCV) PNEUMOCOCCAL: 65+ (2 - PCV) [facility] Comment on above: Postponed from 02/21 (Declined at this time) Start: 07-08-2022 Hepatitis B surface antibody level LDL CHOLESTEROL [facility] Start: 04-26-2022 COVID-19 VACCINE (6 - Pfizer series) COVID-19 VACCINE (6 - Pfizer series) [facility] Start: 03-23-2022 ADVANCE DIRECTIVE DISCUSSION ADVANCE DIRECTIVE DISCUSSION [facility] Start: 03-23-2022 DEPRESSION ASSESSMENT DEPRESSION ASS ESSMENT [facility] Start: 03-13-2022 Hepatitis B surface antibody level LDL CHOLESTEROL [facility] Start: 03-10-2022 End: 05-10-2022 CBC panel - Blood by Automated count CBC Lab Routine TIA (transient ischemic attack) Essential hypertension, benign Atherosclerosis 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, unspecified vessel or lesion type, unspecified whether [place] or transplanted heart Expected: 03/10/2022 (Approximate), Expires: 05/10/2022 [facility] Work Phone: Comment on above: Expected: 03/10/2022 (Approximate), Expires: 05/10/2022 Start: 03-10-2022 End: 05-10-2022 Comprehensive metabolic 2000 panel - Serum or Plasma COMP METABOLIC PANEL Lab Routine TIA (transient ischemic attack) Essential hypertension, benign Atherosclerosis 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, unspecified vessel or lesion type, unspecified whether [place] or transplanted heart Expected: 03/10/2022 (Approximate), Expires: 05/10/2022 [facility] Work Phone: Comment on above: Expected: 03/10/2022 (Approximate), Expires: 05/10/2022 Start: 03-10-2022 End: 05-10-2022 Lipid 1996 panel - Serum or Plasma LIPID PANEL BASIC Lab Routine TIA (transient ischemic attack) Essential hypertension, benign Atherosclerosis 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, unspecified vessel or lesion type, unspecified whether [place] or transplanted heart Expected: 03/10/2022 (Approximate), Expires: 05/10/2022 [facility] Work Phone: Comment on above: Expected: 03/10/2022 (Approximate), Expires: 05/10/2022 Start: 01-03-2022 End: 03-05-2022 Comprehensive metabolic 2000 panel - Serum or Plasma COMP METABOLIC PANEL Lab Routine Atherosclerosis 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, unspecified vessel or lesion type, unspecified whether [place] or transplanted heart Essential hypertension, benign Expected: 01/03/2022 (Approximate), Expires: 03/05/2022 [facility] Work Phone: Comment on above: Expected: 01/03/2022 (Approximate), Expires: 03/05/2022 Start: 01-03-2022 End: 03-05-2022 LIPID PANEL BASIC LIPID PANEL BASIC Lab Routine Atherosclerosis 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, unspecified vessel or lesion type, unspecified whether [place] or transplanted heart Essential hypertension, benign Expected: 01/03/2022 (Approximate), Expires: 03/05/2022 [facility] Work Phone: Comment on above: Expected: 01/03/2022 (Approximate), Expires: 03/05/2022 Start: 12-24-2021 Prothrombin time [facility] Work Phone: Start: 12-23-2021 Prothrombin time [facility] Work Phone: Start: 12-22-2021 Patient discharge [facility] Work Phone: Start: 12-21-2021 Assessment of risk o f venous thromboembolism [facility] Work Phone: Start: 12-21-2021 Cardiac monitoring [facility] Work Phone: Start: 12-21-2021 Catheterization of vein [facility] Work Phone: Start: 12-21-2021 Continuous pulse oximetry [facility] Work Phone: Start: 12-21-2021 Elevation of head of bed [facility] Work Phone: Start: 12-21-2021 Exercises [facility] Work Phone: Start: 12-21-[address] anned interventions [facility] Work Phone: Start: 12-21-2021 Insertion of cathete r into peripheral vein [facility] Work Phone: Start: 12-21-2021 Measuring intake and output [facility] Work Phone: Start: 12-21-2021 Notification of physician [facility] Work Phone: Start: 12-21-2021 Oxygen therapy [facility] Work Phone: Start: 12-21-2021 Providing care accor ding to standard [facility] Work Phone: Start: 12-21-2021 Provision of activit y privileges [facility] Work Phone: Start: 12-21-2021 Referral to occupati onal therapist [facility] Work Phone: Start: 12-21-2021 Referral to service [facility] Work Phone: Start: 12-21-2021 Tobacco use cessatio n education [facility] Work Phone: Start: 12-21-2021 US scan of thyroid Thyroid [facility] Work Phone: Start: 12-21-2021 [facility] Work Phone: Start: 12-21-2021 End: 12-21-2021 Following clinical pathway protocol [facility] Work Phone: Start: 12-21-2021 Verification routine [facility] Work Phone: Start: 12-21-2021 Admission procedure [facility] Work Phone: Start: 12-21-2021 CT of head without contrast STROKE Brain/Head without Cont [facility] Work Phone: Start: 12-21-2021 CT Unspecified body region WO contrast [facility] Work Phone: Start: 12-21-2021 Oxygen therapy [facility] Work Phone: Start: 12-21-2021 End: 12-22-2021 [facility] Work Phone: Start: 11-21-2021 Influenza vaccination INFLUENZA (#1) [facility] Start: 09-24-2021 COVID-19 VACCINE (5 - Booster for Pfizer series) COVID-19 VACCINE (5 - Booster for Pfizer series) [facility] Start: 08-30-2021 End: 10-30-2021 PT panel - Platelet poor plasma by Coagulation assay [facility] Work Phone: Comment on above: Expected: 08/30/2021 , Expires: 10/30/2021 Start: 07-08-2021 End: 09-07-2021 Comprehensive metabolic 2000 panel - Serum or Plasma [facility] Work Phone: Comment on above: Expected: 07/08/2021 (Approximate), Expires: 09/07/2021 Start: 07-08-2021 End: 09-07-2021 LIPID PANEL BASIC [facility] Work Phone: Comment on above: Expected: 07/08/2021 (Approximate), Expires: 09/07/2021 Start: 04-27-2021 COVID-19 VACCINE (4 - Booster for Pfizer series) COVID-19 VACCINE (4 - Booster for Pfizer series) [facility] Start: 03-23-2021 ADVANCE DIRECTIVE DISCUSSION ADVANCE DIRECTIVE DISCUSSION [facility] Start: 03-23-2021 DEPRESSION ASSESSMENT DEPRESSION ASS ESSMENT [facility] Start: 02-21-2009 Pneumococcal Vaccine : 65+ (2 - PCV) Pneumococcal Vaccine: 65+ (2 - PCV) [facility] Start: 02-21-2009 PNEUMOCOCCAL: 65+ (2 - PCV) PNEUMOCOCCAL: 65+ (2 - PCV) [facility] Start: 02-23-2008 Urine microalbumin profile DTAP,TDAP,TD (1 - Tdap) [facility] Start: 1995 RSV Vaccine (1 - 1-d ose 60+ series) RSV Vaccine (1 - 1-dose 60+ series) [facility] Start: 08-12-1985 SHINGRIX VACCINE (1 of 2) VALDES GRIX VACCINE (1 of 2) [facility] Hemoglobin.gastroint estin al.lower [Presence] in Stool by Immunoassay FECAL OCCULT BLOOD TEST Lab Routine Abnormal CBC 06/04/2023 2:13 PM EDT [facility] Work Phone: End: 05-27-2025 MR Brain WO contrast MRI BRAIN W QUANT WO IVCON Radiology Routine Cognitive impairment, mild, so stated 1 Occurrences starting 04/27/2024 until 05/27/2025 [facility] Work Phone: Comment on above: 1 Occurrences starti ng 04/27/2024 until 05/27/2025 End: 05-27-2025 MR Unspecified body region 3D post processing MRI 3D BRAIN QUANT Radiology Routine Cognitive impairment, mild, so stated 1 Occurrences starting 04/27/2024 until 05/27/2025 [facility] Comment on above: 1 Occurrences starti ng 04/27/2024 until 05/27/2025 End: 03-17-2024 Mri brain brain stem w/o contrast material MRI BRAIN WO IVCON Radiology STAT Cerebral infarction, unspecified mechanism (HCC) 1 Occurrences starting 02/16/2023 until 03/17/2024 [facility] Work Phone: Comment on above: 1 Occurrences starti ng 02/16/2023 until 03/17/2024 Mri brain brain stem w/o contrast material MRI BRAIN WO IVCON Radiology STAT Cerebral infarction, unspecified mechanism (HCC) 02/17/2023 8:13 AM EST [facility] Work Phone: Patient Education ED Weakness (U ncertain Cause) [facility] Work Phone: Patient referral [facility] Work Phone: End: 09-13-2022 PT panel - Platelet poor plasma by Coagulation assay PROTHROMBIN TIME/PT Lab Routine assisted current use of anticoagulant Encounter for monitoring Coumadin therapy Once per week for 99 Occurrences starting 09/13/2021 until 09/13/2022 [facility] Work Phone: Comment on above: Once per week for 99 Occurrences starting 09/13/2021 until 09/13/2022 PT panel - Platelet poor plasma by Coagulation assay PROTHROMBIN TIME/PT Lab Routine assisted current use of anticoagulant Encounter for monitoring Coumadin therapy 09/13/2021 8:42 AM EDT [facility] Work Phone: End: 01-16-2024 PT panel - Platelet poor plasma by Coagulation assay PROTHROMBIN TIME/PT Lab Routine 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 Paroxysmal atrial fibrillation (HCC) Once per week for 99 Occurrences starting 01/16/2023 until 01/16/2024 [facility] Work Phone: Comment on above: Once per week for 99 Occurrences starting 01/16/2023 until 01/16/2024 End: 12-23-2024 PT panel - Platelet poor plasma by Coagulation assay PROTHROMBIN TIME Lab STAT assisted current use of anticoagulant 24 Occurrences starting 12/24/2023 until 12/23/2024 [facility] Work Phone: Comment on above: 24 Occurrences start ing 12/24/2023 until 12/23/2024 End: 01-25-2023 Us soft tissue head & neck real time imge docm US THYROID/PARATHYROID Radiology Routine Thyroid nodule 1 Occurrences starting 12/26/2021 until 01/25/2023 [facility] Work Phone: Comment on above: 1 Occurrences starti ng 12/26/2021 until 01/25/2023 [facility] Immunizations Immunization Date Immunization Notes Care Provider Rich [facility] 12-03-2023 influenza virus vacc ine, unspecified formulation Stas Mora MD Work Phone: [facility] 01-10-2023 influenza (HD-IIV4) vaccine, age 65+ yr, high dose, quadrivalent, PF (FLUZONE HIGH-DOSE) Coretta Jalloh [facility] 01-10-2023 influenza virus vacc ine, unspecified formulation Coretta Jalloh [facility] 12-26-2021 influenza, high-dose , quadrivalent vaccine (FLUZONE HIGH DOSE QUADRIVALENT) Stas Mora MD Work Phone: [facility] 12-26-2021 influenza virus vacc ine, unspecified formulation Senia Phillips [facility] 02-27-2021 tetanus toxoid, redu natividad diphtheria toxoid, and acellular pertussis vaccine, adsorbed Stas Mora MD Work Phone: [facility] 02-27-2021 zoster vaccine recombinant Stas Mora MD Work Phone: [facility] 12-25-2020 Covid (Pfizer) Dr. Stas gonzales Work Phone: [facility] 12-10-2020 influenza (HD-IIV4) vaccine, age 65+ yr, high dose, quadrivalent, PF (FLUZONE HIGH-DOSE) Coretta Jalloh [facility] 12-10-2020 influenza, high dose seasonal, preservative-free Stas Mora MD Work Phone: [facility] 09-17-2020 zoster vaccine recombinant Stas Mora MD Work Phone: [facility] 05-09-2020 Covid (Pfizer) Dr. Stas gonzales Work Phone: [facility] 04-18-2020 Covid (Pfizer) Dr. Stas gonzales Work Phone: [facility] 12-24-2016 influenza, high dose seasonal, preservative-free Stas Mora MD Work Phone: [facility] 12-22-2015 Influenza virus vaccine [facility] 12-22-2015 influenza, seasonal, injectable, preservative free Stas Mora MD Work Phone: [facility] Work Phone: 01-30-2014 influenza, high dose seasonal, preservative-free Stas Mora MD Work Phone: [facility] Work Phone: 01-24-2013 influenza virus vacc ine, unspecified formulation Stas Mora MD Work Phone: [facility] 02-22-2008 pneumococcal polysaccharide vaccine, 23 valent Stas Mora MD Work Phone: [facility] Work Phone: 02-22-2008 tetanus and diphther ia toxoids, adsorbed, preservative free, for adult use (2 Lf of tetanus toxoid and 2 Lf of diphtheria toxoid) Stas Mora MD Work Phone: [facility] Work Phone: Payers Date Payer Category Payer Self-pay [id number] 2022 Unknown [id number] 2016 Medicare [employer] [id number] 2016-Present [phone] [address] [place] [address] O [id number] 2016 Medicare [employer] [id number] 2016-Present [phone] [address] [place] [address] O [id number] 2016 [place] [id number] 2016 Medicare [id number] 1935 Unknown [id number]. [id number] 1935 Unknown [id number] [id number]. 2.627 Unknown VA AUTH REQUIR ED SEE NOTE [id number] Unknown VA AUTH REQUIR ED SEE NOTE . [id number] Unknown [id number] 2.16.840.1.877448.3.579. 2.462 Unknown [id number] 2.16.840.1.416479.3.579. 2.462 Unknown [id number] 2.16.840.1.168971.3.579. 2.462 Unknown [id number] 2.16.840.1.493551.3.579. 2.462 Unknown [id number] 2.16.840.1.115221.3.579. 2.462 Unknown [id number] 2.16.840.1.679676.3.579. 2.462 Unknown [id number] 2.16.840.1.970313.3.579. 2.462 Unknown [id number] 2.16.840.1.185163.3.579. 2.462 Unknown [id number] 2.16.840.1.068323.3.579. 2.462 Unknown [id number] 2.16.840.1.792476.3.579. 2.462 Unknown [id number] 2.16.840.1.938498.3.579. 2.462 Unknown [id number] 2.16.840.1.121086.3.579. 2.462 Unknown [id number] 2.16.840.1.520844.3.579. 2.462 Unknown [id number] 2.16.840.1.477581.3.579. 2.462 Unknown [id number] 2.16.840.1.792904.3.579. 2.462 Unknown [id number] 2.16.840.1.924214.3.579. 2.462 Unknown [id number] 2.16.840.1.834975.3.579. 2.462 Unknown [id number] 2.16.840.1.531420.3.579. 2.462 Social History Date Type Detail Facility Start: 05-04-2017 End: 12-26-2021 Tobacco smoking status NHIS Ex-smoker [facility] Start: 02-15-2021 End: 07-28-2024 Alcohol intake Current non-drinker of alcohol (finding) [facility] Start: 08-26-2020 End: 08-29-2021 History SDOH Alcohol Frequency 2 [facility] Start: 08-26-2020 End: 08-29-2021 History SDOH Alcohol Std Drinks 1 [facility] Start: 08-26-2020 End: 08-29-2021 History SDOH Social Connections Buddhism 3 [facility] Start: 08-26-2020 End: 08-29-2021 History SDOH Social Connections Living 5 [facility] Start: 08-26-2020 History SDOH Physical Activity MPS 6 [facility] Start: 08-26-2020 Education 12 [facility] Start: 1935 Sex Assigned At Male [facility] Start: 02-11-2020 End: 12-26-2021 Exposure to SARS-CoV-2 (event) Not sure [facility] History of tobacco use Current smoker [facility] Start: 05-04-2017 End: 12-26-2021 Tobacco use and exposure Smokeless tobacco non-user [facility] Start: 12-21-2021 End: 02-10-2023 Tobacco smoking status OHIS Unknown if ever smoked [facility] Start: 12-22-2021 Non-smoker [facility] Start: 12-26-2021 Tobacco Comment 30 yaers ago [facility] Start: 02-28-2020 End: 08-29-2021 History of Social function [facility] Start: 02-28-2020 End: 08-29-2021 Social connection and isolation panel [facility] Do you belong to any clubs or organizations such as roman catholic groups, unions, fraternal or athletic groups, or school groups? No [facility] Are you now , , , , never or living with a partner? [facility] How often to you hav e a drink containing alcohol? Monthly or less [facility] How many standard dr inks containing alcohol do you have on a typical day? 1 or 2 [facility] How often do you hav e 6 or more drinks on 1 occasion? Never [facility] How hard is it for y ou to pay for the very basics like food, housing, medical care, and heating Not hard at all [facility] Do you feel stress - tense, restless, nervous, or anxious, or unable to sleep at night because your mind is troubled all the time - these days [OSQ] Not at all [facility] (I/We) worried velvet er (my/our) food would run out before (I/we) got money to buy more. Never true [facility] Start: 08-26-2020 Gender identity Identifies as male gender (finding) [facility] Start: 08-26-2020 Sexual orientation Heterosexual (finding) [facility] Sex Assigned At Sex [facility] Are you now , , , , never or living with a partner? [facility] How often to you hav e a drink containing alcohol? 2-4 times a month [facility] Goals Date Patient Goal Desired Activity /State Functional Status Date Assessment Result Facility 09-06-2024 Functional status Ambulates [facility] Work Phone: 07-26-2024 Total score [AUDIT-C] 1 07/27/19 25 6:26 PM EDT User, Olena [facility] 07-26-2024 Within the last year , have you been humiliated or emotionally abused in other ways by your partner or ex-partner? No 07/26/2024 6:26 PM EDT User, [facility] 07-26-2024 Within the last year , have you been afraid of your partner or ex-partner? No 07/26/2024 6:26 PM EDT [facility] 07-26-2024 Within the last year , have you been raped or forced to have any kind of sexual activity by your partner or ex-partner? No 07/26/2024 6:26 PM EDT [facility] 07-26-[facility]24 Within the last year , have you been kicked, hit, slapped, or otherwise physically hurt by your partner or ex-partner? No 07/26/2024 6:26 PM EDT User, Mychart No [facility] 07-26-2024 How often to you hav e a drink containing alcohol? Monthly or less 07/26/2024 6:26 PM EDT User, Mychart Monthly or less [facility] 07-26-[address] inks containing alcohol do you have on a typical day? 1 or 2 07/26/2024 6:26 PM EDT User, Mychart 1 or 2 [facility] 07-26-2024 How often do you hav e 6 or more drinks on 1 occasion? Never 07/26/2024 6:26 PM EDT User, Mychart Never [facility] 11-17-2022 Functional Status Up ad tara [facility] 11-17-2022 Functional Status Identified as high risk, Fall ID band on, Room located near nursing station [facility] 12-22-2021 Functional status Ambulates;Chair [facility] Work Phone: 07-02-2016 Are you deaf, or do you have serious difficulty hearing No 07/02/2016 2:52 PM Anita Bentley, DO No [facility] Work Phone: 07-02-2016 Are you blind, or do you have serious difficulty seeing, even when wearing glasses No 07/02/2016 2:52 PM Anita Bentley, DO No [facility] 07-02-2016 Do you have serious difficulty walking or climbing stairs No 07/02/2016 2:52 PM Anita Bentley, DO No [facility] 07-02-2016 Do you have difficul ty dressing or bathing No 07/02/2016 2:52 PM Anita Bentley, DO No [facility] 07-02-2016 Because of a physica l, mental, or emotional condition, do you have difficulty doing errands alone such as visiting a physician's office or shopping No 07/02/2016 2:52 PM Anita Bentley, DO No [facility] Mental Status Date Assessment Result Facility 09-06-2024 Cognitive function Voice/Name [facility] Work Phone: 09-05-2024 Cognitive function Appropriate;Cooperativ e [facility] Work Phone: 02-10-2023 Cognitive function Level Of Cons ciousness Awake;Alert;Appropriate;Fol lows Commands [facility] Work Phone: 11-17-2022 Mental Status Orientation Oriented x 4 [facility] 11-17-2022 Mental Status [facility] 12-22-2021 Cognitive function Voice/Name [facility] Work Phone: 12-21-2021 Cognitive function Voice/Name [facility] Work Phone: 07-02-2016 Because of a physica l, mental, or emotional condition, do you have serious difficulty concentrating, remembering, or making decisions No 07/02/2016 2:52 PM EDT Anita Zhang, DO No [facility] Clinical Notes 03-12-2020 to 09-21-2024 Telephone Encounter [...] in there for two weeks. Please advise [facility] 09-21-2024 Miscellaneous Notes Formattin g of this note might be different from the original. [facility]. Maria Guadalupe states that he has been in there for two weeks. Please advise documented in this encounter [facility] 09-06-2024 Consult note [facility] 09-06-2024 Consult note Note Date/Time September 06, 2024 4:37pm [facility] Medical Records Department [address] [place] [address] Counseling Note - Pharmacy 09/06/24 1143 MR#: [id number] Acct: [id number] Name: ROBY FLORES Rep #:[id number] : 1935 89 From: Isabelle Summers PCP: Dr. Stas Mora MD Status:AD M IN Location: [place] [address] Pharmacy [place] Med Reconciliation Pharmacy Service has performed discharge [...] Signature (if applicable): Date CC: ~ Signed [facility] Work Phone: 1(788) 240-572306-17-2025 Discharge summary Author Navid Dominguez [facility] Note Date/Time September 06, 2024 11:1 4am [facility] Medical Records Department [address] [place] [address] Discharge Summary 09/06/24 1109 MR#: [id number] Acct: [id number] Name: ROBY FLORES Rep #:[id number] : 1935 89 From: Navid Trejo PCP: Dr. Stas Mora MD Status:AD M IN [place] [facility] [id number] Providers Date of Admission: 09/02/24 Date of [...] [facility] to the [facility] and [facility] 09/06: INR 2.4. Hold warfarin today and [...] The daughter is the healthcare power of charge auditor. #History of dementia: On rivastigmine #Dyslipidemia: On [...] (Auto) 66.8, Lymph % (Auto) 16.4 L, [place] % (Auto) 9.1, Eos % (Auto) 6.3 [...] in before D/C Order can be placed): Longterm Facility Charges/Coding Visit Charges Inpatient E&M: 98791 Disch Hosp >30min 09/06/24 1114 <Electronically signed by Navid Dominguez MD> Cosigner Signature (if applicable): CC: Dr. Stas Mora MD; Dr. Navid Dominguez MD~ Signed [facility] Work Phone: 1(725) 991-921306-17-2025 Discharge summary Author Navid Dominguez [facility] Note Date/Time September 06, 2024 11:0 9am [facility] Medical Records Department [address] [place] [address] [address] [facility] MR#: [id number] Acct: [id number] Name: ROBY FLORES Rep #:[id number] : [...] The daughter is the healthcare power of charge auditor. #History of dementia: On rivastigmine #Dyslipidemia: On [...] liberalized regular diet with consistency/texture as per UNDERWEAR TRIMMER. Will continue 120mL ensure plus HP 4 [...] in before D/C Order can be placed): Longterm Facility 09/06/24 1109 <Electronically signed by Navid Dominguez MD> Cosigner Signature (if applicable): CC: Dr. Stas Mora MD; Dr. Kathy Wells MD ~ [facility] Work Phone: 1(668) 807-180706-17-2025 Discharge summary [facility] Medical Records Department [address] [place] [address] Discharge Summary 09/06/24 1109 MR#: [id number] Acct: [id number] Name: ROBY FLORES Rep #:[id number] : 1935 89 From: Navid Trejo PCP: Dr. Stas Mora MD Status:AD M IN [id number] Providers Date of Admission: 09/02/24 Date of [...] [facility] 09[facility]: INR 2.4. Hold warfarin today and [...] The daughter is the healthcare power of charge auditor. #History of dementia: On rivastigmine #Dyslipidemia: On [...] (Auto) 66.8, Lymph % (Auto) 16.4 L, [place] % (Auto) 9.1, Eos % (Auto) 6.3 [...] in before D/C Order can be placed): Longterm Facility Charges/Coding Visit Charges Inpatient E&M: 16069 Disch Hosp >30min 09/06/24 1114 Cosigner Signature (if applicable): CC: Dr. Stas Mora MD; Dr. Navid Dominguez MD~ Signed [facility]06-17-2025 Discharge summary [facility] Medical Records Department [address] [place] [address] [facility] MR#: [id number] Acct: [id number] Name: ROBY FLORES Rep #:[id number] : [...] SERVICES PRIOR TO HIS/HER TRANSFER TO THE [facility]. 09/06/24 1109 Diet Diet Order/Speech Therapy: INPATIENT [...] explained to the [facility] # Fever * Patient developed a fever. [...] The daughter is the healthcare power of charge auditor. #History of dementia: On rivastigmine #Dyslipidemia: On [...] liberalized regular diet with consistency/texture as per UNDERWEAR TRIMMER. Will continue 120mL ensure plus HP 4 [...] in before D/C Order can be placed): Longterm Facility 09/06/24 1109 Cosigner Signature (if applicable): CC: Dr. Stas Mora MD; Dr. Kathy Wells MD ~ [facility]06-17-2025 [facility] Medical Records Department [address] [place] [address] Discharge Summary 09/06/24 1109 MR#: [id number] Acct: [id number] Name: ROBY FLORES Rep #: [id number] : 1935 89 From: Navid Dominguez MD PCP: Dr. Stas Mora MD Status:ADM IN [facility] Providers Date of Admission: 09/02/24 Date of [...] The daughter is the healthcare power of charge auditor. #History of dementia: On rivastigmine #Dyslipidemia: On [...] / Lab / Microbiol (more content not included)...[facility] 09-05-2024 Progress note Author Navid Dominguez [facility] Note Date/Time September 05, 2024 4:15 pm [facility] Medical Records Department [address] [place] [address] Progress Note - Hospitalist 09/05/24 1608 MR#: [id number] Acct: [id number] Name: ROBY FLORES Rep #:[id number] : 1935 89 From: Navid Trejo PCP: Dr. Stas Mora MD Status:AD M IN [facility] Reason for Visit Reason for Visit: Diagnoses [...] Clarity Clear, Urine pH 7.0, Ur Specific [place] 1.005, Urine Protein 15 H, Urine Glucose [...] 77.2 H, Lymph % (Auto) 9.8 L, [place] % (Auto) 7.9, Eos % (Auto) 4.0, [...] explained to the patient and [facility] # Fever * Patient developed a fever. [...] The daughter is the healthcare power of charge auditor. #History of dementia: On rivastigmine #Dyslipidemia: On statin #Benign essential hypertension: On lisinopril. DVT prophylaxis: * Resume Coumadin today. INR 1.8. Daughter still thinking about that she wants him to continue otherwise. Code status: DNRCCA no intubation * Disposition: Awaiting placement. PT OT on board. Charges/Coding Visit Charges Inpatient E&M: 50421 Subs Hosp L2 09/05/24 1615 <Electronically signed by Navid Dominguez MD> Cosigner Signature (if applicable): CC: ~ Signed [facility] Work Phone: 1(900) 732-286506-16-2025 Progress note [facility] Medical Records Department [address] [place] [address] Progress Note - Hospitalist 09/05/24 1608 MR#: [id number] Acct: [id number] Name: ROBY FLORES Rep #:[id number] : 1935 89 From: Navid Trejo PCP: Dr. Stas Mora MD Status:AD M IN Location: [place] [address]-1 Reason for Visit Reason for Visit: Diagnoses [...] Clarity Clear, Urine pH 7.0, Ur Specific [place] 1.005, Urine Protein 15 H, Urine Glucose [...] 77.2 H, Lymph % (Auto) 9.8 L, [place] % (Auto) 7.9, Eos % (Auto) 4.0, [...] explained to the patient and his [facility] # Fever * Patient developed a fever. [...] The daughter is the healthcare power of charge auditor. #History of dementia: On rivastigmine #Dyslipidemia: On statin #Benign essential hypertension: On lisinopril. DVT prophylaxis: * Resume Coumadin today. INR 1.8. Daughter still thinking about that she wants him to continue otherwise. Code status: DNRCCA no intubation * Disposition: Awaiting placement. PT OT on board. Charges/Coding Visit Charges Inpatient E&M: 55557 Subs Hosp L2 09/05/24 1615 Cosigner Signature (if applicable): CC: ~ Signed [facility]06-15-2025 Progress note Author [facility] Note Date/Time September 04, 2024 3:37 pm [facility] Medical Records Department [address] [place] [address] Progress Note 09/04/24 1412 MR#: [id number] Acct: [id number] Name: ROBY FLORES Rep #:[id number] : 1935 89 From: Kathy Wells MD PCP: Dr. Stas Mora MD Status:AD M IN Location: [place] [address]-1 Subjective Subjective Patient seen and examined. He [...] 78.0 H, Lymph % (Auto) 7.8 L, [place] % (Auto) 7.7, Eos % (Auto) 5.3 [...] The daughter is the healthcare power of charge auditor. * In light of patient's confusion in [...] on board. Charges/Coding Visit Charges Inpatient E&M: 72074 Subs Hosp L2 09/04/24 1531 <Electronically signed by Kathy Wells MD> Kathy Wells MD Cosigner Signature (if applicable): CC: ~ Signed [facility] Work Phone: 1(129) 585-641906-15-2025 Progress note [facility] Medical Records Department [address] [place] [address] Progress Note 09/04/24 1412 MR#: [id number] Acct: [id number] Name: ROBY FLORES Rep #:[id number] : 1935 89 From: Kathy Wells MD PCP: Dr. Stas Mora MD Status:AD M IN Location: [place] [address] Subjective Subjective Patient seen and examined. He [...] 78.0 H, Lymph % (Auto) 7.8 L, [place] % (Auto) 7.7, Eos % (Auto) 5.3 [...] The daughter is the healthcare power of charge auditor. * In light of patient's confusion in [...] on board. Charges/Coding Visit Charges Inpatient E&M: 34470 Subs Hosp L2 09/04/24 1537 Kathy Wells MD Cosigner Signature (if applicable): CC: ~ Signed [facility]06-14-2025 Progress note Author Kathy [facility] Note Date/Time September 03, 2024 6:29 pm [facility] Medical Records Department [address] [place] [address] Progress Note 09/03/24 1135 MR#: [id number] Acct: [id number] Name: ROBY FLORES Rep #:[id number] : 1935 89 From: Kathy Wells MD PCP: Dr. Stas Mora MD Status:AD M IN Location: [place] [address] Subjective Subjective Patient seen and examined. He [...] 83.4 H, Lymph % (Auto) 6.7 L, [place] % (Auto) 6.0, Eos % (Auto) 2.8, [...] The daughter is the healthcare power of charge auditor. * In light of patient's confusion in [...] on board. Charges/Coding Visit Charges Inpatient E&M: 01636 Subs Hosp L2 09/03/24 1829 <Electronically signed by Kathy Wells MD> Kathy Wells MD Cosigner Signature (if applicable): CC: ~ Signed [facility] Work Phone: 1(468) 833-185706-14-2025 Progress note [facility] Medical Records Department [address] [place] [address] Progress Note 09/03/24 1135 MR#: [id number] Acct: [id number] Name: ROBY FLORES Rep #:[id number] : 1935 89 From: Kathy Wells MD PCP: Dr. Stas Mora MD Status:AD M IN Location: [place] [address]-1 Subjective Subjective Patient seen and examined. He [...] 83.4 H, Lymph % (Auto) 6.7 L, [place] % (Auto) 6.0, Eos % (Auto) 2.8, [...] The daughter is the healthcare power of charge auditor. * In light of patient's confusion in [...] on board. Charges/Coding Visit Charges Inpatient E&M: 32098 Subs Hosp L2 09/03/24 3428 Kathy Wells MD Cosigner Signature (if applicable): CC: ~ Signed [facility]06-14-2025 Consult note Author Spike De La Cruz [facility] Note Date/Time September 03, 2024 3:49 pm [facility] Medical Records Department [address] [place] [address] Pharmacokinetic/Renal -Consult 09/03/24 1548 MR#: [id number] Acct: [id number] Name: ROBY FLORES Rep #:[id number] : 1935 89 From: Spike Maynard [facility] PCP: Dr. Stas Mora MD Status:AD M IN Location: [place] [address] Consult Antibiotic Management Pharmacy has been consulted [...] 09/03/24 1549 <Electronically signed by Spike Angelo [facility]> Date _ Spike De La Cruz [facility] Cosigner Signature (if applicable): Date CC: ~ Signed [facility] Work Phone: 1(812) 438-644406-14-2025 Consult note [facility] Medical Records Department [address] [place] [address] [place] [address] Pharmacokinetic/Renal -Consult 09/03/24 1548 MR#: [id number] Acct: [id number] Name: ROBY FLORES Rep #:[id number] : 1935 89 From: Spike Maynard [facility] PCP: Dr. Stas Mora MD Status:AD M IN Location: [place] [address] Consult Antibiotic Management Pharmacy has been consulted [...] Vancomycin (09/04/24 at 2130) 09/03/24 1549 dominick [facility]> Date _ Spike De La Cruz [facility] Cosigner Signature (if applicable): Date CC: ~ Signed [facility]06-13-2025 Progress note Author Kathy Wells [facility] Note Date/Time September 02, 2024 6:45 pm [facility] Medical Records Department [address] [place] [address] Progress Note 09/02/24 1404 MR#: [id number] Acct: [id number] Name: ROBY FLORES Rep #:[id number] : 1935 89 From: Kathy Wells MD PCP: Dr. Stas Mora MD Status:AD M IN Location: [place] [address] Subjective Subjective Patient seen and examined. He [...] (Auto) 87.9 H, Lymph %(Auto) 3.8 L, [place] % (Auto) 4.8, Eos % (Auto) 2.2, [...] evidence of intracranial bleed. [facility] with [facility] fluids. * PT [...] The daughter is the healthcare power of charge auditor. * In light of patient's confusion in [...] intubation * Charges/Coding Visit Charges Inpatient E&M: 13961 Subs Hosp L2 09/02/24 1845 <Electronically signed by Kathy Wells MD> Kathy Wells MD Cosigner Signature (if applicable): CC: ~ Signed [facility] Work Phone: 1(613) 338-346506-13-2025 Progress note [facility] Medical Records Department [address] [place] [address] Progress Note 09/02/24 1404 MR#: [id number] Acct: [id number] Name: ROBY FLORES Rep #:[id number] : 1935 89 From: Kathy Wells MD PCP: Dr. Stas Mora MD Status:AD M IN Location: [place] [address]-1 Subjective Subjective Patient seen and examined. He [...] (Auto) 87.9 H, Lymph %(Auto) 3.8 L, [place] % (Auto) 4.8, Eos % (Auto) 2.2, [...] evidence of intracranial bleed. * [facility] Hydrate gently with IV fluids. * PT [...] The daughter is the healthcare power of charge auditor. * In light of patient's confusion in [...] intubation * Charges/Coding Visit Charges Inpatient E&M: 07024 Subs Hosp L2 09/02/24 5850 Kathy Wells MD Cosigner Signature (if applicable): CC: ~ Signed [facility]06-13-2025 Evaluation note* Diagnosis Onset Date Resolution Status Admit Date Adult failure to thrive acute J [facility] 2024 12:49pm Chronic anticoagulation acute J [facility] 2024 12:49pm Contusion of hip acute August 12:49pm Fall acute September 02 12:49pm History of atrial fibrillation acute September 02, 2024 12:49pm History of dementia acute September 02, 2024 12:49pm History of TIAs acute August 12:49pm Unable to ambulate acute August 212024 12:49pm [facility] Work Phone: 1(959) 809-174306-12-2025 Consult note Author Zachary Lubin [facility] Note Date/Time September 01, 2024 9:15 pm [facility] Medical Records Department [address] [facility] [place] [address] Pharmacokinetic/Renal -Consult 09/01/242113 MR#: [id number] Acct: [id number] Name: ROBY FLORES Rep #:[id number] : 1935 89 From: Zachary Serrano od PCP: Dr. Stas Mora MD Status:AD M GERMAN Y Location: [place] [address] Consult Antibiotic Management Pharmacy has been consulted [...] (if applicable): Date _ CC: ~ Signed [facility] Work Phone: 1(997) 910-667906-12-2025 Progress note Author Marta Black [facility] Note Date/Time September 01, 2024 7:55 pm [facility] Medical Records Department [address] [place] [address] Progress Note - Hospitalist 09/01/241952 MR#: [id number] Acct: [id number] Name: ROBY FLORES Rep #:[id number] : 1935 89 From: Marta Black DO PCP: Dr. Stas Mora MD Status:AD M [place]ER[place] Location: [place] ZA648-7 Hospitalist Note Called regarding Mr. Flores having [...] Cosigner Signature (if applicable): CC: ~ Signed [facility] Work Phone: 1(220) 164-346706-12-2025 Consult note [facility] Medical Records Department [address] [place] [address] Pharmacokinetic/Renal -Consult 09/01/242113 MR#: [id number] Acct: [id number] Name: ROBY FLORES Rep #:[id number] : 1935 89 From: Zachary Serrano od PCP: Dr. Stas Mora MD Status:AD M GERMAN Y Location: [place] [address] Consult Antibiotic Management Pharmacy has been consulted [...] (if applicable): Date _ CC: ~ Signed [facility]06-12-2025 History and physical note Author Kathy [facility] Note Date/Time September 01, 2024 6:04 pm [facility] Medical Records Department [address] [place] [address] H&P Exam - Hospitalist 09/01/24 1018 MR#: [id number] Acct: [id number] Name: ROBY FLORES Rep #:[id number] : 1935 89 From: Kathy Wells MD PCP: Dr. Stas Mora MD Status:AD M [place] Location: [place] ZI332-5 HPI - General General Date of Admission: [...] in the ED were BP of 180/89, [place] of 87, RR of 18 and temp [...] debility and weakness due to mechanical fall. [facility] Medical History Chronic anticoagulation TIA (transient ischemic [...] 87.5 H, Lymph % (Auto) 4.8 L, [place] % (Auto) 5.7, Eos % (Auto) 1.2, [...] Clarity Clear, Urine pH 8.0, Ur Specific [place] 1.010, Urine Protein 15 H, Urine Glucose [...] No fracture or dislocation present. Reading Location: [facility]--[address] 09/01/24 09:05 IMPRESSION: Cerebral atrophy. Mucosal thickening of the ethmoid sinuses as well as opacification of the left maxillary sinus. Reading Location: [facility]-1 Chest X-Ray 09/01/24 09:25 IMPRESSION: No acute abnormality is seen. Reading Location: [facility]-1 Assessment & Plan Assessment/Plan (1) Adult [...] The daughter is the healthcare power of charge auditor. * In light of patient's confusion in [...] be DNR CCA no intubation. * Total eova-iy-vcdu time 16 minutes. Charges/Coding Visit Charges Inpatient E&M: 51256 Init Hosp L3 Procedures Hospitalists Procedures: 47314 Advncd Care Plan 30 Min 09/01/24 1804 <Electronically signed by Kathy Wells MD> Cosigner Signature (if applicable): CC: Dr. Stas Mora MD; Dr. Kathy Wells MD~ Signed [facility] Work Phone: 1(962) 525-110306-12-2025 Progress note [facility] Medical Records Department [address] [place] [address] Progress Note - Hospitalist 09/01/241952 MR#: [id number] Acct: [id number] Name: ROBY FLORES Rep #:[id number] : 1935 89 From: Marta Black DO PCP: Dr. Stas Mora MD Status:[facility] Location: [place] [address] Hospitalist Note Called regarding Mr. Flores having [...] Cosigner Signature (if applicable): CC: ~ Signed [facility]06-12-2025 History and physical note [facility] Medical Records Department [address] [place] [address] H&P Exam - Hospitalist 09/01/24 1018 MR#: [id number] Acct: [id number] Name: ROBY FLORES Rep #:[id number] : 1935 89 From: Kathy Wells MD PCP: Dr. Stas Mora MD Status:AD M [facility] HPI - General General Date of Admission: [...] in the ED were BP of 180/89, [place] of 87, RR of 18 and temp [...] debility and weakness due to mechanical fall. [facility] Medical History Chronic anticoagulation TIA (transient ischemic [...] 87.5 H, Lymph % (Auto) 4.8 L, [place] % (Auto) 5.7, Eos % (Auto) 1.2, [...] Clarity Clear, Urine pH 8.0, Ur Specific [place] 1.010, Urine Protein 15 H, Urine Glucose [...] No fracture or dislocation present. Reading Location: [facility]-[address] 09/01/24 09:05 IMPRESSION: Cerebral atrophy. Mucosal thickening of the ethmoid sinuses as well as opacification of the left maxillary sinus. Reading Location: [facility]-1 Chest X-Ray 09/01/24 09:25 IMPRESSION: No acute abnormality is seen. Reading Location: [facility]-1 Assessment & Plan Assessment/Plan (1) Adult [...] The daughter is the healthcare power of charge auditor. * In light of patient's confusion in [...] be DNR CCA no intubation. * Total fvhg-lx-aukw time 16 minutes. Charges/Coding Visit Charges Inpatient E&M: 52873 Init Hosp L3 Procedures Hospitalists Procedures: 97532 Advncd Care Plan 30 Min 09/01/24 1804 Cosigner Signature (if applicable): CC: Dr. Stas Mora MD; Dr. Kathy Wells MD~ Signed [facility]06-12-2025 Telephone encounter Note* Telephone Encounter - Haydee Oliveros LPN - 09/01/2024 2:49 PM EDT Mychart message sent [facility]06-12-2025 Miscellaneous Notes* Telephone Encounter - Haydee Oliveros [...] affordable alvarado using Good Rx coupons. At [facility] (his current pharmacy), he can get a 1 mo supply for ~$30. If he switches the prescription to [facility], he can get a 1 mo supply for ~$20. See coupons below. Rivastigmine patches are also available via [employer]. It appears the cheapest option is through [facility], in which he can get 30 patches for $52. Coupon also below. Sending to PCP to review and provide patient with coupon card information. Russell Aguayo PharmD, [facility] Primary Care Clinical Pharmacist Memantine coupon at [facility] Memantine coupon at [facility] Rivastigmine patches coupon at [facility] documented in this [facility] Telephone encounter Note * Telephone Encounter - Luciana Cisneros MD - 09/01/2024 1:26 PM EDT Thanks Russell, Staff please let patient know what the pharmacist as opined on. Regards, Luciana Cisneros MD [facility]06-12-2025 Discharge summary Author Inderjit Gillespie [facility] Note Date/Time September 01, 2024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 voicemail for the Patient and on the Pts girlfriends phone to have the Pt call back and ask for a nurse to receive the providers message. We need more information about his bilateral leg swelling that he was scheduled for tomorrow. Elana Valdes RN documented in this encounterSelect Medical Specialty [facility] [place] Telephone encounter Note * Telephone Encounter - Elana Valdes RN - 09/14/2023 2:52 PM EDT Called and left a voicemail for the Patient and on the Pts girlfriends phone to have the Pt call back and ask for a nurse to receive the providers message. We need more information about his bilateral leg swelling that he was scheduled for tomorrow. Elana Valdes RN [facility] [place]06-12-2024 Telephone encounter Note* Telephone Encounter - Coretta Jalloh RP - 09/02/2023 3:08 PM EDT [facility] [place] [facility] Anticoagulation Clinic Anticoagulation Episode Summary Anticoagulation Care Providers Provider Role Specialty Phone number Stas Mora MD Referring Family Medicine [phone] Roby Flores is a 88 year old [...] No Known Allergies Indication for Warfarin: 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 Paroxysmal atrial fibrillation [...] Pharmacy Anticoagulation Clinic Pharmacy Anticoagulation Clinic Pager: [phone]. [facility] [place]06-12-2024 Miscellaneous Notes* Telephone Encounter - Coretta Jalloh RPh - 09/02/2023 3:08 PM EDT [facility] [place] [facility] Anticoagulation Clinic Anticoagulation Episode Summary Anticoagulation Care Providers Provider Role Specialty Phone number Stas Mora MD Referring [facility] [phone] Roby Flores is a 88 year old [...] ALLERGIES No Known Allergies Indication for Warfarin: assisted current use of anticoagulant Paroxysmal atrial fibrillation [...] Pharmacy Anticoagulation Clinic Pharmacy Anticoagulation Clinic Pager: [phone]. documented [facility] encounter[facility] [place] Telephone encounter Note * Telephone Encounter - Coretta Jalloh RPh - 08/26/2023 5:03 PM EDT [facility] Pharm[facility] Anticoagulation Clinic Anticoagulation Episode Summary Anticoagulation Care Providers Provider Role Specialty Phone number Stas Mora MD Referring Family Medicine [phone] Roby Flores is a 88 year old [...] ALLERGIES No Known Allergies Indication for Warfarin: assisted current use of anticoagulant Paroxysmal atrial fibrillation [...] Pharmacy Anticoagulation Clinic Pharmacy Anticoagulation Clinic Pager: [phone]. [facility] [place]06-05-2024 Miscellaneous Notes* Telephone Encounter - Coretta Jalloh RPh - 08/26/2023 5:03 PM EDT [facility] [place] [facility]ticoagulation Clinic Anticoagulation Episode Summary Anticoagulation Care Providers Provider Role Specialty Phone number Stas Mora MD Referring Family Medicine [phone] Roby Flores is a 88 year old [...] ALLERGIES No Known Allergies Indication for Warfarin: assisted current use of anticoagulant Paroxysmal atrial fibrillation [...] Pharmacy Anticoagulation Clinic Pharmacy Anticoagulation Clinic Pager: [phone]. documented [facility] encounter[facility] [place] Telephone encounter Note * Telephone Encounter - Coretta Jalloh RPh - 08/19/2023 5:09 PM EDT [facility] [place] [facility] Anticoagulation Clinic Anticoagulation Episode Summary Anticoagulation Care Providers Provider Role Specialty Phone number Stas Mora MD Referring Family Medicine [phone] Roby Flores is a 88 year old [...] Pharmacy Anticoagulation Clinic Pharmacy Anticoagulation Clinic Pager: [phone]. [facility] [place]05-29-2024 Miscellaneous Notes* Telephone Encounter - Coretta Jalloh RPh - 08/19/2023 5:09 PM EDT [facility] [place] [facility] Anticoagulation Clinic Anticoagulation Episode Summary Anticoagulation Care Providers Provider Role Specialty Phone number Stas Mora MD Referring Family Medicine [phone] Roby Flores is a 88 year old [...] Pharmacy Anticoagulation Clinic Pharmacy Anticoagulation Clinic Pager: [phone]. documented in this encounter[facility] [place] History of Present illness Narrative* Stas Mora [...] thinks he is being sued by a roman catholic and thathe was given a letter about it, doesn't know who the behavioral science chair is or where the roman catholic is. states this is not true. He was looking for his brother who lives out of state, thought he was still staying with them, however he has not been up to [place] since Nov. No hallucinations. Is not leaving [...] Coronary atherosclerosis of unspecified type of vessel, [place] or graft Coronary artery disease Other and [...] Past Histories independently gathered by the clinical bilingual patient support caseworker and the remaining scribed note accurately describes [...] AM. Marta Palacio MA documented in [facility] encounter[facility] [place] Telephone encounter Note * Telephone Encounter - Coretta Jalloh [facility] - 08/12/2023 4:27 PM EDT [facility] [place] [facility] Anticoagulation Clinic Anticoagulation Episode Summary Anticoagulation Care Providers Provider Role Specialty Phone number Stas Mora MD Referring Family Medicine [phone] Roby Flores is a 87 year old [...] No Known Allergies Indication for Warfarin: 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 Paroxysmal atrial fibrillation [...] Pharmacy Anticoagulation Clinic Pharmacy Anticoagulation Clinic Pager: [phone]. [facility] [place]05-22-2024 Miscellaneous Notes* Telephone Encounter - Coretta Jalloh RPh - 08/12/2023 4:27 PM EDT [facility] [place] [facility] Anticoagulation Clinic Anticoagulation Episode Summary Anticoagulation Care Providers Provider Role Specialty Phone number Stas Mora MD Referring Family Medicine [phone] Roby Flores is a 87 year old [...] No Known Allergies Indication for Warfarin: 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 Paroxysmal atrial fibrillation [...] Pharmacy Anticoagulation Clinic Pharmacy Anticoagulation Clinic Pager: [phone]. documented in [facility] encounter[facility] [place] Telephone encounter Note * Telephone Encounter - Coretta Jalloh RPh - 08/05/2023 4:41 PM EDT [facility] [place] [facility] Anticoagulation Clinic Anticoagulation Episode Summary Anticoagulation Care Providers Provider Role Specialty Phone number Stas Mora MD Referring Family Medicine [phone] Roby Flores is a 87 year old [...] ALLERGIES No Known Allergies Indication for Warfarin: assisted current use of anticoagulant Paroxysmal atrial fibrillation [...] Pharmacy Anticoagulation Clinic Pharmacy Anticoagulation Clinic Pager: [phone]. [facility] [place]05-15-2024 Miscellaneous Notes* Telephone Encounter - Coretta Jalloh RPh - 08/05/2023 4:41 PM EDT [facility] [place] [facility] Anticoagulation Clinic Anticoagulation Episode Summary Anticoagulation Care Providers Provider Role Specialty Phone number Stas Mora MD Referring Family Medicine [phone] Roby Flores is a 87 year old [...] No Known Allergies Indication for Warfarin: 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 Paroxysmal atrial fibrillation [...] Pharmacy Anticoagulation Clinic Pharmacy Anticoagulation Clinic Pager: [phone]. documented in [facility] encounter[facility] [place] Telephone encounter Note * Telephone Encounter - Elena Lopez RPh - 07/29/2023 3:21 PM EDT [facility] [place] [facility] Anticoagulation Clinic Anticoagulation Episode Summary Anticoagulation Care Providers Provider Role Specialty Phone number Stas Mora MD Referring Family Medicine [phone] Roby Flores is a 87 year old [...] ALLERGIES No Known Allergies Indication for Warfarin: assisted current use of anticoagulant Paroxysmal atrial fibrillation [...] Pharmacy Anticoagulation Clinic Pharmacy Anticoagulation Clinic Pager: [phone]. [facility] [place]05-08-2024 Miscellaneous Notes* Telephone Encounter - Elena Lopez RPh - 07/29/2023 3:21 PM EDT [facility] [place] [facility] Anticoagulation Clinic Anticoagulation Episode Summary Anticoagulation Care Providers Provider Role Specialty Phone number Stas Mora MD Referring Family Medicine [phone] Roby Flores is a 87 year old [...] No Known Allergies Indication for Warfarin: 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 Paroxysmal atrial fibrillation [...] Patient denies need for refills. Elena Lopez [facility] Clinical Pharmacist, Pharmacy Anticoagulation Clinic Pharmacy Anticoagulation Clinic Pager: [phone]. documented in this encounterSelect [facility] [place] Telephone encounter Note * Telephone Encounter - Coretta Jalloh RPh - 07/22/2023 4:40 PM EDT [facility] [place] [facility] Anticoagulation Clinic Anticoagulation Episode Summary Anticoagulation Care Providers Provider Role Specialty Phone number Stas Mora MD Referring Family Medicine [phone] Roby Flores is a 87 year old [...] No Known Allergies Indication for Warfarin: 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 Paroxysmal atrial fibrillation [...] Pharmacy Anticoagulation Clinic Pharmacy Anticoagulation Clinic Pager: [phone]. [facility] [place]05-01-2024 Miscellaneous Notes* Telephone Encounter - Coretta Jalloh RPh - 07/22/2023 4:40 PM EDT [facility] [place] [facility] Anticoagulation Clinic Anticoagulation Episode Summary Anticoagulation Care Providers Provider Role Specialty Phone number Stas Mora MD Referring Family Medicine [phone] Roby Flores is a 87 year old [...] ALLERGIES No Known Allergies Indication for Warfarin: assisted current use of anticoagulant Paroxysmal atrial fibrillation [...] Pharmacy Anticoagulation Clinic Pharmacy Anticoagulation Clinic Pager: [phone]. documented in this encounterSelect [facility] [place] Telephone encounter Note * Telephone Encounter - Coretta Jalloh RPh - 07/15/2023 3:18 PM EDT [facility] [place] Amb[facility] Anticoagulation Clinic Anticoagulation Episode Summary Anticoagulation Care Providers Provider Role Specialty Phone number Stas Mora MD Referring Family Medicine [phone] Roby Flores is a 87 year old [...] No Known Allergies Indication for Warfarin: 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 Paroxysmal atrial fibrillation [...] Pharmacy Anticoagulation Clinic Pharmacy Anticoagulation Clinic Pager: [phone]. [facility] [place]04-24-2024 Miscellaneous Notes* Telephone Encounter - Coretta Jalloh RPh - 07/15/2023 3:18 PM EDT [facility] [place] Amb[facility] Anticoagulation Clinic Anticoagulation Episode Summary Anticoagulation Care Providers Provider Role Specialty Phone number Stas Mora MD Referring Family Medicine [phone] Roby Flores is a 87 year old [...] ALLERGIES No Known Allergies Indication for Warfarin: assisted current use of anticoagulant Paroxysmal atrial fibrillation [...] Pharmacy Anticoagulation Clinic Pharmacy Anticoagulation Clinic Pager: [phone]. documented in this encounterSelect [facility] [place]04[facility]-2024 Miscellaneous Notes* Telephone Encounter - Coretta Jalloh RPh - 07/08/2023 4:36 PM EDT [facility] [place] [facility] Anticoagulation Clinic Anticoagulation Episode Summary Anticoagulation Care Providers Provider Role Specialty Phone number Stas Mora MD Referring [facility] [phone] Roby Flores is a 87 year old [...] No Known Allergies Indication for Warfarin: 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 Paroxysmal atrial fibrillation [...] Patient requests need for refills. Coretta Jalloh [facility] Clinical Pharmacist, Pharmacy Anticoagulation Clinic Pharmacy Anticoagulation Clinic Pager: [phone]. documented in this encounterSelect [facility] [place]2024 Miscellaneous Notes* Telephone Encounter - Coretta Jalloh RPh - 07/01/2023 5:20 PM EDT [facility] [place] Amb[facility] Anticoagulation Clinic Anticoagulation Episode Summary Anticoagulation Care Providers Provider Role Specialty Phone number Stas Mora MD Referring Family Medicine [phone] Roby Flores is a 87 year old [...] No Known Allergies Indication for Warfarin: 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 Paroxysmal atrial fibrillation [...] Pharmacy Anticoagulation Clinic Pharmacy Anticoagulation Clinic Pager: [phone]. documented in this encounterSelect [facility] [place] Telephone encounter Note * Telephone Encounter - Adrian (Healthcare IT)Elana - 06/25/2023 5:14 PM EDT Images from [...] remains on Remote TM list. Elana Campbell (Healthcare IT) [facility] [place]04-04-2024 Miscellaneous Notes* Telephone Encounter - Adrian HuangHealthcare IT)Elana - 06/25/2023 5:14 PM EDT Images from [...] remains on Remote TM list. Elana Campbell (Tire And Tube Repairer) * Telephone Encounter - Stas Mora MD - 06/25/2023 4:44 PM EDT It looks like my office became involved because the on-call doctor was called with his elevated INR. I would prefer he stay with the pharmacy for his routine monitoring. Stas Mora MD * Telephone Encounter - Adrian (Tire And Tube Repairer)Elana - 06/25/2023 4:03 PM EDT Pharm Phone [...] this time Please advise. Elana Campbell CPhT (Stroke Belt Sander Operator) Pharmacy Anticoagulation Clinic documented in this encounterSelect [facility] [place] Telephone encounter Note * Telephone Encounter - Stas Mora MD - 06/25/2023 4:44 PM EDT It looks like my office became involved because the on-call doctor was called with his elevated INR. I would prefer he stay with the pharmacy for his routine monitoring. Stas Mora MD [facility] [place]04-04-2024 Telephone encounter Note* Telephone Encounter - Adrian (Tire And Tube Repairer)Elana - 06/25/2023 4:03 PM EDT Pharm Phone [...] this time Please advise. Elana Campbell CPhT (Stroke Belt Sander Operator) Pharmacy Anticoagulation Clinic [facility] [place]04-03-2024 Miscellaneous Notes* Telephone Encounter - Jason Easton [...] with VKA drugs, such as warfarin, the [place] [employer] 2012 Guideline recommends [...] Chest 2012, 141:7S-47S Avel RA, et al. [facility] 2017, 70: 252-289 Confirmed that pt is taking 1 mg daily. No changes to diet, medications, missed or extra doses, etc. Keke Tsang MA documented in this encounterSelect [facility] [place]03-[facility]-2024 Miscellaneous Notes* Telephone Encounter - Marta Palacio [...] no Rosie Cruz Ma documented in this encounterSelect [facility] [place]03-18-2024 Miscellaneous Notes* Telephone Encounter - Keke Ferraro [...] Information or narrative: no documented in this encounterSelect Medical [facility]ty [facility] [place]03-[facility]-2024 Miscellaneous Notes* Telephone Encounter - Halina Alfaro [...] went over notes below from Jenna Fitzpatrick WIRE WHEELER. She said no change in his diet, not taking any antibiotics, has not taken double dose. Patient currently taking coumadin2.5 mg daily. * Telephone Encounter - Jenna Fitzpatrick APRN.FIBERGLASS TECHNICIAN - 06/05/2023 9:11 AM EDT Attempted to call the patient and daughter to discuss critical lab value that was received yesterday. On-call provider tried calling the patient last night several times without answer. I attempted to call the patient again this morning and his daughter without answer. INR was 6.9. Jenna Fitzpatrick APRN.SHEMAR documented in this encounterSelect [facility]ty [facility] [place]03-[facility]-2024 Miscellaneous Notes* Telephone Encounter - Marta Palacio MA - 06/05/2023 10:15 AM EDT See phone note 06/05/23 with Jenna Fitzpatrick. Marta Palacio MA * Telephone Encounter - Jasmin Bell MD - 06/04/2023 7:59 PM EDT Been trying to call patient at numbers give and goes straight to . Sending Hightail message in case will see that sooner. After multiple attempts, I called [facility]. They cannot call the patient but if the patient calls them, they will conference call with me. documented in this encounterSelect [facility]ty [facility] [place]-2024 Miscellaneous Notes* Telephone Encounter - Marta Palacio [...] message on daughter Anabella's mobile. Sent a Gini.nett message too. Called [facility] and the will conference call me if patient calls them. documented in this encounterSelect [facility] [place]03-[facility]-2024 Miscellaneous Notes* Telephone Encounter - Hortencia Winston RN - 06/04/2023 8:[address] Bell has left messages for the patient to call back regarding a critical lab. documented in this encounterSelect [facility] [place]03-14-2024 Miscellaneous Notes* Telephone Encounter - Minda Solorzano [...] LPN * Telephone Encounter - Jenna Fitzpatrick APRN.FIBERGLASS TECHNICIAN - 06/04/2023 11:37 AM EDT Can you [...] has any questions. Thank you. Jenna Fitzpatrick APRN.FIBERGLASS TECHNICIAN documented in this encounterSelect [facility]ty [facility] [place]03-13-2024 Miscellaneous Notes* Telephone Encounter - Coretta Jalloh [facility] - 06/03/2023 3:22 PM EDT [facility] [place] Ambulatory Pharmacy Anticoagulation Clinic Anticoagulation Episode Summary Anticoagulation Care Providers Provider Role Specialty Phone number Stas Mora MD Referring Family Medicine [phone] Roby Flores is a 87 year old [...] No Known Allergies Indication for Warfarin: 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 Paroxysmal atrial fibrillation [...] Pharmacy Anticoagulation Clinic Pharmacy Anticoagulation Clinic Pager: [phone]. documented in this encounterSelect [facility]ty [facility] [place]03-[place]-2024 History of Present illness Narrative* Stas Mora [...] Coronary atherosclerosis of unspecified type of vessel, [place] or graft Coronary artery disease Other and [...] unspecified vessel or lesion type, unspecified whether [place] or transplanted heart - ICD9: 414.00, ICD10: [...] Past Histories independently gathered by the clinical bilingual patient support caseworker and the remaining scribed note accurately describes [...] PM. Marta Palacio MA documented in this encounterSelect [facility] [place]03-[facility]-2024 Miscellaneous Notes* Telephone Encounter - Coretta Jalloh [facility] - 05/27/2023 2:23 PM EST [facility] [place] [facility] Anticoagulation Clinic Anticoagulation Episode Summary Anticoagulation Care Providers Provider Role Specialty Phone number Stas Mora MD Referring Family Medicine [phone] Robyimelda Flores is a 87 year old year old male patient being evaluated today for a [facility] [place] Amb[facility] Anticoagulation Clinic Anticoagulation Episode Summary Anticoagulation Care Providers Provider Role Specialty Phone number Stas Mora MD Referring Family Medicine [phone] Robyimelda Flores is a 87 year old [...] No Known Allergies Indication for Warfarin: 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 Paroxysmal atrial fibrillation [...] Pharmacy Anticoagulation Clinic Pharmacy Anticoagulation Clinic Pager: [phone]. documented in this encounterSelect [facility] [place]02-28-2024 Miscellaneous Notes* Telephone Encounter - Coretta Jalloh RPh - 05/20/2023 2:36 PM EST [facility] [place] Amb[facility] Pharmacy Anticoagulation Clinic Anticoagulation Episode Summary Anticoagulation Care Providers Provider Role Specialty Phone number Stas Mora MD Referring Family Medicine [phone] Roby Flores is a 87 year old [...] ALLERGIES No Known Allergies Indication for Warfarin: assisted current use of anticoagulant Paroxysmal atrial fibrillation [...] Pharmacy Anticoagulation Clinic Pharmacy Anticoagulation Clinic Pager: [phone]. documented in this encounterSelect [facility] [place]02-[place]-2024 Miscellaneous Notes* Telephone Encounter - Senia Phillips RPh - 05/13/2023 4:06 PM EST [facility] [place] Amb[facility] Pharmacy Anticoagulation Clinic Anticoagulation Episode Summary Anticoagulation Care Providers Provider Role Specialty Phone number Stas Mora MD Referring Family Medicine [phone] Roby Flores is a 87 year old [...] No Known Allergies Indication for Warfarin: 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 Paroxysmal atrial fibrillation [...] Pharmacy Anticoagulation Clinic Pharmacy Anticoagulation Clinic Pager: [phone]. documented in this encounterSelect [facility] [place]02[facility]-2024 Miscellaneous Notes* Telephone Encounter - Coretta Jalloh RPh - 05/06/2023 3:14 PM EST [facility] [place] Amb[facility] Anticoagulation Clinic Anticoagulation Episode Summary Anticoagulation Care Providers Provider Role Specialty Phone number Stas Mora MD Referring Family Medicine [phone] Roby Flores is a 87 year old [...] No Known Allergies Indication for Warfarin: 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 Paroxysmal atrial fibrillation [...] Pharmacy Anticoagulation Clinic Pharmacy Anticoagulation Clinic Pager: [phone]. documented in this encounterSelect [facility] [place]02[facility]-2024 Miscellaneous Notes* Telephone Encounter - Coretta Jalloh RPh - 04/29/2023 4:00 PM EST [facility] [place] [facility] Anticoagulation Clinic Anticoagulation Episode Summary Anticoagulation Care Providers Provider Role Specialty Phone number Stas Mora MD Referring Family Medicine [phone] Roby Flores is a 87 year old [...] ALLERGIES No Known Allergies Indication for Warfarin: assisted current use of anticoagulant Paroxysmal atrial fibrillation [...] INR check scheduled on 05/06/2023 Coretta Jalloh [facility] Clinical Pharmacist, Pharmacy Anticoagulation Clinic Pharmacy Anticoagulation Clinic Pager: [phone]. documented in this encounterSelect [facility] [place]12[facility]-2023 Miscellaneous Notes* Telephone Encounter - Elise Paredes [facility] - 02/20/2023 3:37 PM EST [facility] [place] Amb[facility] Anticoagulation Clinic Anticoagulation Episode Summary Anticoagulation Care Providers Provider Role Specialty Phone number Stas Mora MD Referring Family Medicine [phone] Roby Flores is a 87 year old [...] ALLERGIES No Known Allergies Indication for Warfarin: assisted current use of anticoagulant Paroxysmal atrial fibrillation [...] Pharmacy Anticoagulation Clinic Pharmacy Anticoagulation Clinic Pager: [phone]. documented in this encounterSelect [facility] [place]11-[place]-2023 Miscellaneous Notes* Telephone Encounter - Franca Cohen [...] evaluation Stas Mora MD documented in this encounterSelect [facility] [place]11-[place]-2023 History of Present illness Narrative* Janelle Rivera [...] 2023 7:43 AM documented in this encounterCleveland [id number] History of Present illness Narrative* Stas Mora MD - 02/16/2023 2:00 PM EST Chief Complaint Patient presents with: ED Follow-up HPI Roby Flores is a 87 year old male who presents here today for ER Follow Up.. Pt went to the [facility] ER on 02/10/23 with c/o fatigue, [...] Recheck in 1 week. Below copied from [facility]: Chief Complaint: Fatigue Informant: patient Onset/Context/Timing Onset: [...] any urinary complaints. Patient denies any headaches. [facility] Narrative Medical decision making narrative: Differential [...] Coronary atherosclerosis of unspecified type of vessel, [place] or graft Coronary artery disease Other and [...] Completed Pneumococcal Vaccine: 65+ Completed Data reviewed [facility] ER reports 02/10/23 ASSESSMENT/PLAN: 1. Cerebral [...] Past Histories independently gathered by the clinical bilingual patient support caseworker and the remaining scribed note accurately describes [...] PM. Marta Palacio Ma documented in this encounterSelect [facility] [place]11-24-2023 Miscellaneous Notes* Telephone Encounter - Elise Paredes, [facility] - 02/13/2023 3:56 PM EST [facility] Anticoagulation Episode Summary Anticoagulation Care Providers Provider Role Specialty Phone number Stas Mora MD Referring Family Medicine [phone] Roby Flores is a 87 year old [...] No Known Allergies Indication for Warfarin: 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 Paroxysmal atrial fibrillation [...] INR check scheduled on 02/20/2023 Elise Paredes [facility] Clinical Pharmacist, Pharmacy Anticoagulation Clinic Pharmacy Anticoagulation Clinic Pager: [phone]. documented in this encounterSelect Medical [facility] [place]11-17-2023 Miscellaneous Notes* Telephone Encounter - AlanSeniaEnrique - 02/06/2023 4:28 PM EST [facility] Clinic Anticoagulation Episode Summary Anticoagulation Care Providers Provider Role Specialty Phone number Stas Mora MD Referring Family Medicine [phone] Roby Flores is a 87 year old [...] No Known Allergies Indication for Warfarin: 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 Paroxysmal atrial fibrillation [...] Pharmacy Anticoagulation Clinic Pharmacy Anticoagulation Clinic Pager: [phone]. documented in this encounterSelect Medical [facility] [place]10-06-2023 Miscellaneous Notes* Telephone Encounter - Senia Phillips RPh - 12/26/2022 3:04 PM EDT [facility] Clinic Anticoagulation Episode Summary Anticoagulation Care Providers Provider Role Specialty Phone number Stas Mora MD Referring Family Medicine [phone] Roby Flores is a 87 year old [...] ALLERGIES No Known Allergies Indication for Warfarin: assisted current use of anticoagulant Paroxysmal atrial fibrillation (hcc) Anticoagulation Episode Summary Current INR goal: 2.0-3.0 Assessment: INR result of 2.5 is therapeutic Plan: Current Warfarin Dosing As of 12/26/2022 Full warfarin instructions: 2.5 mg every day Sent Tripcover message Advised patient to continue current weekly dose as noted above Next lab INR check scheduled on 01/09/2023 Senia Phillips RPh Clinical Pharmacist, Pharmacy Anticoagulation Clinic Pharmacy Anticoagulation Clinic Pager: [phone]. documented in this encounterSelect Medical [facility]ty [facility] [place]09-29-2023 Miscellaneous Notes* Telephone Encounter - Senia Phillips RPh - 12/19/2022 4:30 PM EDT [facility] Clinic Anticoagulation Episode Summary Anticoagulation Care Providers Provider Role Specialty Phone number Stas Mora MD Referring Family Medicine [phone] Roby Flores is a 87 year old [...] ALLERGIES No Known Allergies Indication for Warfarin: assisted current use of anticoagulant Paroxysmal atrial fibrillation (hcc) Anticoagulation Episode Summary Current INR goal: 2.0-3.0 Assessment: INR result of 2.0 is therapeutic Plan: Current Warfarin Dosing As of 12/19/2022 Full warfarin instructions: 2.5 mg every day Sent Tripcover message Advised patient to continue current weekly dose as noted above Next lab INR check scheduled on 01/02/2023 Senia Phillips RPh Clinical Pharmacist, Pharmacy Anticoagulation Clinic Pharmacy Anticoagulation Clinic Pager: [phone]. documented in this encounterSelect Medical [facility]ty [facility] [place]09-22-2023 Miscellaneous Notes* Telephone Encounter - Senia Phillips RPh - 12/12/2022 4:01 PM EDT [facility] Clinic Anticoagulation Episode Summary Anticoagulation Care Providers Provider Role Specialty Phone number Stas Mora MD Referring Family Medicine [phone] Roby Flores is a 87 year old [...] ALLERGIES No Known Allergies Indication for Warfarin: assisted current use of anticoagulant Paroxysmal atrial fibrillation [...] Pharmacy Anticoagulation Clinic Pharmacy Anticoagulation Clinic Pager: [phone]. documented in this encounterSelect Medical [facility]ty [facility] [place]09-01-2023 Miscellaneous Notes* Telephone Encounter - Jeimy Duong RPh - 11/21/2022 2:38 PM EDT [facility]tico[facility] Clinic Anticoagulation Episode Summary Anticoagulation Care Providers Provider Role Specialty Phone number Stas Mora MD Referring Family Medicine [phone] Roby Flores is a 87 year old [...] Pharmacy Anticoagulation Clinic Pharmacy Anticoagulation Clinic Pager: [phone]. documented in this encounterSelect Medical Specialty [facility] [place]08-28-2023 Hospital Discharge instructions Patient Education 11/17/2022 16:32:18 [...] Wound changes colors Numbness around the wound 5768-6871 [employer]. [address] [place] [address]. All rights reserved. This information is not intended as a substitute for professional medical care. Always follow [facility] professional's instructions. 11/17/2022 16:32:14 Head Injury (Adult) [...] the ears or bruising around the eyes 4488-4152 [employer] [address] [place] [address], [place] [address]. All rights reserved. This information is not intended as a substitute for professional medical care. Always follow yourhealthcare professional's instructions. Follow Up Care 11/17/2022 15:05:08 With:Call Physician Referral Address:Unknown When:2-4 days [facility] Samiradevin Graham 08-28-2023 Note Discharge Instructions Thank [...] Wound changes colors Numbness around the wound 0144-5350 [employer] [address] [place] [address], [place] [address]. All rights reserved. This information is not [...] the ears or bruising around the eyes 7650-1915 [employer] [address] [place] [address]. All rights reserved. This information is not intended as a substitute for professional medical care. Always follow yourhealthcare professional's instructions. Additional Information VACCINATE! IT SAVES LIVES! Members of the community who have not yet received the COVID-19 vaccine and would like to receive it can visit one of [facility] vaccine clinics. There are many vaccine clinic locations within the [facility]. For locations and available times, please visit [email or web address] It is important to note that some COVID mobile vaccine clinics are held outdoors and may be canceled in rainy or stormy conditions. To learn more about pediatric vaccinations (ages 5-11), we invite you to visit the [facility] webpage. [email or web address] learn more about the COVID-19 vaccine, we invite you to visit the CDC website for a list of frequently asked questions. https://www.cdc.gov/coronavirus/2019-ncov/vaccines/faq.html [facility] Patient [facility] Access Instructions: Stay connected with your healthcare team and access your personal medical information anytime with the [facility] Patient Portal. If you would like a full copy of your medical records please contact the [facility] Medical Records Department Thursday through Thursday between 8a.m. and 4:30p.m. Please follow the directions below to access the portal: 1.Access the email account you provided upon registration to the [facility].2.Look for an invitation email from [facility].3.Open the email and access the invitation link: Accept Invitation to [employer]4.Fill in the required العلي to create your account. Sign into [email or web address] with your username and password that you [...] you will allow to register on the [employer] Patient Portal for access to your information. You can also access the [employer] Patient Portal on the [facility]. Simply click on "Health Records" under "Jobaline" and then click on the [employer] logo. HOW TO SAFELY DISPOSE OF PRESCRIPTION [...] Call your local pharmacy or go to [email or web address] to find one close to you.3.Make use of household items: Use cat litter or old coffee grounds to dispose medications if other options arenot available. Mix your drugs with these household products, seal them in an airtight container andthrow it into the garbage. Call [facility]: [phone] to be sure your drugs can be [...] aware that I should contact my doctor. 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08-28-2023 Note ORIGINAL EXAMINATION: CT OF THE HEAD [...] Sign Date: 11/17/2022 4:26:20 PM Ordering Provider: [facility]08-18-2023 Miscellaneous Notes* Telephone Encounter - Senia Phillips [facility] - 11/07/2022 3:22 PM EDT [facility] Antico[facility] Clinic Anticoagulation Episode Summary Anticoagulation Care Providers Provider Role Specialty Phone number Stas Mora MD Referring Family Medicine [phone] Roby Flores is a 87 year old [...] ALLERGIES No Known Allergies Indication for Warfarin: assisted current use of anticoagulant Paroxysmal atrial fibrillation (hcc) Anticoagulation Episode Summary Current INR goal: 2.0-3.0 Assessment: INR result of 2.2 is therapeutic Plan: Current Warfarin Dosing As of 11/07/2022 Full warfarin instructions: 2.5 mg every day Sent Tripcover message Advised patient to continue current weekly dose as noted above Next lab INR check scheduled on 11/21/2022 Senia Phillips RPh Clinical Pharmacist, Pharmacy Anticoagulation Clinic Pharmacy Anticoagulation Clinic Pager: [phone]. documented in this encounterSelect Medical Specialty [facility] [place]08-11-2023 Miscellaneous Notes* Telephone Encounter - Senia Phillips RPh - 10/31/2022 2:29 PM EDT Patient due to test INR today. Will continue to monitor for results. 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 documented in this encounterSelect Medical [facility]ty [facility] [place]07-28-2023 Miscellaneous Notes* Telephone Encounter - Jason Easton [...] call from today by the [facility] Pharmacy Anticoagulation Clinic. They spoke with pt at [phone] and gave pt instructions on what to do. 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 documented in this encounterSelect Medical [facility]ty [facility] [place]07-07-2023 Miscellaneous Notes* Telephone Encounter - Jeimy Duong RPh - 09/26/2022 2:11 PM EDT [facility] Anticoagulation Clinic Anticoagulation Episode Summary Anticoagulation Care Providers Provider Role Specialty Phone number Stas Mora MD Referring Family Medicine [phone] Roby Flores is a 87 year old [...] Pharmacy Anticoagulation Clinic Pharmacy Anticoagulation Clinic Pager: [phone]. 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 documented in this encounterSelect Medical [facility]ty [facility] [place]06-06-2023 Instructions* Patient Instructions* Marta Palacio Al - 08/26/2022 1:36 PM EDT Please check your medications when you get home and make sure that your medications match our list. documented in this encounterSelect Medical Specialty Hospital [facility] [place]06-06-2023 History of Present illness Narrative* Stas Mora MD - 08/26/2022 1:20 PM EDT Medical B eligibilty date 1999 Date of last exam 09/05/2021 PAST MEDICAL HISTORY Diagnosis Date Coronary atherosclerosis of unspecified type of vessel, [place] or graft Coronary artery disease Other and [...] Past Histories independently gathered by the clinical bilingual patient support caseworker and the remaining scribed note accurately describes my personal service to the patient. Stas Mora MD The documentation for this note was completed by Marta Palacio Ma acting as scribe for Stas Mora MD. August 26, 2022 1:17 PM. Marta Palacio Ma documented in this encounterSelect Medical Specialty [facility] [place]06-02-2023 Miscellaneous Notes* Telephone Encounter - Senia Phillips [facility] - 08/22/2022 2:50 PM EDT [facility] Anticoagulation Clinic Anticoagulation Episode Summary Anticoagulation Care Providers Provider Role Specialty Phone number Stas Mora MD Referring Family Medicine [phone] Roby Flores is a 87 year old [...] No Known Allergies Indication for Warfarin: 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 Paroxysmal atrial fibrillation (hcc) Anticoagulation Episode Summary Current INR goal: 2.0-3.0 Assessment: INR result of 2.4 is therapeutic Plan: Current Warfarin Dosing As of 08/22/2022 Full warfarin instructions: 3.75 mg every Fri; 2.5 mg all other days Sent Tripcover message Advised patient to continue current weekly dose as noted above Next lab INR check scheduled on 08/29/2022 Senia Phillips RPh Clinical Pharmacist, Pharmacy Anticoagulation Clinic Pharmacy Anticoagulation Clinic Pager: [phone]. documented in this encounterSelect Medical [facility] [place]04-28-2023 Miscellaneous Notes* Telephone Encounter - Senia Phillips RPh - 07/18/2022 3:29 PM EDT [facility] Antico[facility] Clinic Anticoagulation Episode Summary Anticoagulation Care Providers Provider Role Specialty Phone number Stas Mora MD Referring Family Medicine [phone] Roby Flores is a 86 year old [...] No Known Allergies Indication for Warfarin: 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 Paroxysmal atrial fibrillation (hcc) Anticoagulation Episode Summary Current INR goal: 2.0-3.0 Assessment: INR result of 2.1 is therapeutic Plan: Current Warfarin Dosing As of 07/18/2022 Full warfarin instructions: 2.5 mg every day Sent Tripcover message Advised patient to continue current weekly dose as noted above Next lab INR check scheduled on 08/01/2022 Senia Phillips RPh Clinical Pharmacist, Pharmacy Anticoagulation Clinic Pharmacy Anticoagulation Clinic Pager: [phone]. documented in this encounterSelect Medical [facility]ty [facility] [place]04-14-2023 Miscellaneous Notes* Telephone Encounter - Lety Gandara [facility] - 07/04/2022 3:46 PM EDT [facility] Anticoagulation Clinic Anticoagulation Episode Summary Anticoagulation Care Providers Provider Role Specialty Phone number Stas Mora MD Referring Family Medicine [phone] Roby Flores is a 86 year old [...] ALLERGIES No Known Allergies Indication for Warfarin: assisted current use of anticoagulant Paroxysmal atrial fibrillation [...] Patient denies need for refills. Lety Gandara [facility] Clinical Pharmacist, Pharmacy Anticoagulation Clinic Pharmacy Anticoagulation Clinic Pager: [phone]. documented in this encounterSelect Medical [facility]ty [facility] [place]04-03-2023 Miscellaneous Notes* Telephone Encounter - Elvis Kearney APRN.CNP - 06/23/2022 10:17 AM EDT The following approved medication requests have been transmitted electronically. Requested Prescriptions Pending Prescriptions Disp Refills warfarin (COUMADIN) 2.5 mg tablet [Pharmacy Med Name: WARFARIN SODIUM 2.5 MG TABLET] 135 tablet 3 Sig: TAKE 5 MG EVERY MON, DIXIE 2.5 MG ALL OTHER DAYS Elvis Kearney APRN.CNP documented in this encounterSelect Medical [facility]ty [facility] [place]03-31-2023 Miscellaneous Notes* Telephone Encounter - Senia Phillips RPh - 06/20/2022 4:46 PM EDT [facility] Anticoagulation Clinic Anticoagulation Episode Summary Anticoagulation Care Providers Provider Role Specialty Phone number Stas Mora MD Referring Family Medicine [phone] Roby Flores is a 86 year old [...] No Known Allergies Indication for Warfarin: 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 Paroxysmal atrial fibrillation [...] Pharmacy Anticoagulation Clinic Pharmacy Anticoagulation Clinic Pager: [phone]. documented in this encounterSelect Medical [facility] [place]03-17-2023 Miscellaneous Notes* Telephone Encounter - Senia Phillips RPh - 06/06/2022 4:18 PM EDT [facility] Amb[facility] Anticoagulation Clinic Anticoagulation Episode Summary Anticoagulation Care Providers Provider Role Specialty Phone number Stas Mora MD Referring Family Medicine [phone] Roby Flores is a 86 year old [...] ALLERGIES No Known Allergies Indication for Warfarin: assisted current use of anticoagulant Paroxysmal atrial fibrillation (hcc) Anticoagulation Episode Summary Current INR goal: 2.0-3.0 Assessment: INR result of 2.6 is therapeutic Plan: Current Warfarin Dosing As of 06/06/2022 Full warfarin instructions: 2.5 mg every day Sent Tripcover message Advised patient to continue current weekly dose as noted above Next lab INR check scheduled on 06/20/2022 Senia Phillips RPh Clinical Pharmacist, Pharmacy Anticoagulation Clinic Pharmacy Anticoagulation Clinic Pager: [phone]. documented in this encounterSelect Medical [facility]ty [facility] [place]03-10-2023 Miscellaneous Notes* Telephone Encounter - Neeru Rice LPN - 05/30/2022 3:02 PM EST Pharmacists manage INR documented in this encounterSelect Medical Specialty Hospital [facility] [place]03-02-2023 Miscellaneous Notes* Telephone Encounter - Halina Alfaro [...] you. Jenna Fitzpatrick APRN.SHEMAR documented in this encounterSelect Medical Specialty [facility] [place]03-01-2023 Miscellaneous Notes* Telephone Encounter - Judy Matos [...] hip/leg 10. : na Protocols used: Hip [id number], Hip Chspco-UCHUE-MQ documented in this encounterSelect Medical Specialty [facility] [place]03-01-2023 Miscellaneous Notes* Telephone Encounter - Fani Grace RN - 05/21/2022 12:22 PM EST Patient disconnected during transferred, called multiple time with no answer. documented in this encounterSelect Medical Specialty [facility] [place]02-27-2023 Miscellaneous Notes* Telephone Encounter - Paige Hickman [...] instructions. Franca Cohen LPN documented in this encounterSelect Medical Specialty [facility] [place]02-24-2023 Miscellaneous Notes* Telephone Encounter - Senia Phillips RPh - 05/16/2022 5:10 PM EST Patient due to test INR today. Will continue to monitor for results. Senia Phillips RPh documented in this encounterSelect Medical Specialty [facility] [place]02-10-2023 Miscellaneous Notes* Telephone Encounter - Senia Phillips RPh - 05/02/2022 3:06 PM EST [facility] Anticoagulation Clinic Anticoagulation Episode Summary Anticoagulation Care Providers Provider Role Specialty Phone number Stas Mora MD Referring Family Medicine [phone] Roby Flores is a 86 year old year old male patient being evaluated today for a Telemanagement visit. Patient is currently on the following anticoagulant(s) Warfarin. Labs PT INR (no units) Date Value 05/15/2021 2.3 04/17/2021 1.9 03/13/2021 Test sent to [facility]. INR (no units) Date Value 05/02/2022 [...] No Known Allergies Indication for Warfarin: 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 Paroxysmal atrial fibrillation (hcc) Anticoagulation Episode Summary Current INR goal: 2.0-3.0 Assessment: INR result of 2.1 is therapeutic Plan: Current Warfarin Dosing As of 05/02/2022 Full warfarin instructions: 2.5 mg every day Sent Tripcover message Advised patient to continue current weekly dose as noted above Next lab INR check scheduled on 05/16/2022 Senia Phillips RPh Clinical Pharmacist, Pharmacy Anticoagulation Clinic Pharmacy Anticoagulation Clinic Pager: [phone]. documented in this encounterSelect Medical [facility] [place]01-27-2023 Miscellaneous Notes* Telephone Encounter - Senia Phillips RPh - 04/18/2022 4:25 PM EST [facility] Anticoagulation Clinic Anticoagulation Episode Summary Anticoagulation Care Providers Provider Role Specialty Phone number Stas Mora MD Referring Family Medicine [phone] Roby Flores is a 86 year old year old male patient being evaluated today for a Telemanagement visit. Patient is currently on the following anticoagulant(s) Warfarin. Labs PT INR (no units) Date Value 05/15/2021 2.3 04/17/2021 1.9 03/13/2021 Test sent to [facility]. INR (no units) Date Value 04/18/2022 [...] ALLERGIES No Known Allergies Indication for Warfarin: assisted current use of anticoagulant Paroxysmal atrial fibrillation (hcc) Anticoagulation Episode Summary Current INR goal: 2.0-3.0 Assessment: INR result of 2.4 is therapeutic Plan: Current Warfarin Dosing As of 04/18/2022 Full warfarin instructions: 2.5 mg every day; Starting 04/18/2022 Sent Tripcover message Advised patient to continue current weekly dose as noted above Next lab INR check scheduled on 05/02/2022 Senia Phillips RPh Clinical Pharmacist, Pharmacy Anticoagulation Clinic Pharmacy Anticoagulation Clinic Pager: [phone]. documented in this encounterSelect Medical [facility]ty [facility] - [place] Miscellaneous Notes* Telephone Encounter - Elise Paredes RPh - 04/04/2022 4:09 PM EST [facility] [place] Ambulatory Pharmacy Anticoagulation Clinic Anticoagulation Episode Summary Anticoagulation Care Providers Provider Role Specialty Phone number Stas Mora MD Referring Family Medicine [phone] Roby Flores is a 86 year old year old male patient being evaluated today for a Lab INR. Patient is currently on the following anticoagulant(s) Warfarin. Labs PT INR (no units) Date Value 05/15/2021 2.3 04/17/2021 1.9 03/13/2021 Test sent to [facility]. INR (no units) Date Value 04/04/2022 [...] ALLERGIES No Known Allergies Indication for Warfarin: assisted current use of anticoagulant Paroxysmal atrial fibrillation [...] getting labs every 2 weeks Elise Paredes [facility] Clinical Pharmacist, Pharmacy Anticoagulation Clinic Pharmacy Anticoagulation Clinic Pager: [phone]. documented in this encounterSelect [facility] [place]-[place] Miscellaneous Notes* Telephone Encounter - Rosie Cruz Ma - 03/31/2022 5:12 PM EST Office received continuity of care paperwork from the DC requesting pt's last OV, labs and Imm. PerPCP okay to fax back requested records. Faxed back to [facility] at F#: [phone]. Rosie Cruz Ma documented in this encounterSelect [facility] [place]12-30-2022 Miscellaneous Notes* Telephone Encounter - Carmelina Cruz RPh - 03/21/2022 4:05 PM EST [facility] [place] Ambulatory Pharmacy Anticoagulation Clinic Anticoagulation Episode Summary Anticoagulation Care Providers Provider Role Specialty Phone number Stas Mora MD Referring Family Medicine [phone] Roby Flores is a 86 year old year old male patient being evaluated today for a Telemanagement visit. Patient is currently on the following anticoagulant(s) Warfarin. Labs PT INR (no units) Date Value 05/15/2021 2.3 04/17/2021 1.9 03/13/2021 Test sent to [facility]. 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 * Telephone Encounter - Carmelina Cruz RPh - 03/21/2022 3:12 PM EST Patient due to test INR today. Will continue to monitor for results. Carmelina Cruz RPh documented in this encounterSelect [facility] [place]12-[place]-20[place] Miscellaneous Notes* Telephone Encounter - Oliva Westbrook [...] whatever he wanted to. documented in this encounterSelect [facility] - [place]10-31-2022 Miscellaneous Notes* Telephone Encounter - Paige Hickman RPh - 01/20/2022 3:55 PM EDT [facility] [place] Ambulatory Pharmacy Anticoagulation Clinic Anticoagulation Episode Summary Anticoagulation Care Providers Provider Role Specialty Phone number Stas Mora MD Referring Family Medicine [phone] Roby Flores is a 86 year old year old male patient being evaluated today for a Telemanagement visit. Patient is currently on the following anticoagulant(s) Warfarin. Labs PT INR (no units) Date Value 05/15/2021 2.3 04/17/2021 1.9 03/13/2021 Test sent to [facility]. INR (no units) Date Value 01/20/2022 [...] instructed to call [facility] at [phone] with any questionsor concerns. Paige Hickman RP Clinical Pharmacist, Pharmacy Anticoagulation Clinic Pharmacy Anticoagulation Clinic Pager: [phone] documented in this encounterSelect Medical [facility]ty [facility] - [place]10-28-2022 Miscellaneous Notes* Telephone Encounter - Senia Phillips [...] the providers message. Sent information as a Hightail message as well. Elana Valdes RN * [...] to contact patient with no answer at [phone]. Current dose of coumadin is: 2.5 mg every day . Previous INR (date and result): 01/03/22 2.4 documented in this encounterSelect Medical [facility] - [place]10-24-2022 Miscellaneous Notes* Telephone Encounter - Jenna Fitzpatrick [...] advise. López Mckenna LPN documented in this encounterSelect Medical Specialty Hospital - [place]10-14-2022 Miscellaneous Notes* Telephone Encounter - Senia Phillips [facility] - 01/03/2022 4:11 PM EDT [facility] [place] Ambulatory [facility] Anticoagulation Clinic Anticoagulation Episode Summary Anticoagulation Care Providers Provider Role Specialty Phone number Stas Mora MD Referring Family Medicine [phone] Roby Flores is a 86 year old year old male patient being evaluated today for a Telemanagement visit. Patient is currently on the following anticoagulant(s) Warfarin. Labs PT INR (no units) Date Value 05/15/2021 2.3 04/17/2021 1.9 03/13/2021 Test sent to [facility]. INR (no units) Date Value 01/03/2022 [...] ALLERGIES No Known Allergies Indication for Warfarin: assisted current use of anticoagulant Paroxysmal atrial fibrillation (hcc) Anticoagulation Episode Summary Current INR goal: 2.0-3.0 Assessment: INR result of 2.4 is therapeutic Plan: Current Warfarin Dosing As of 01/03/2022 Full warfarin instructions: 2.5 mg every day Sent Tripcover message Advised patient to continue current weekly dose as noted above Next lab INR check scheduled on 01/17/2022 Senia Phillips RPh Clinical Pharmacist, Pharmacy Anticoagulation Clinic Pharmacy Anticoagulation Clinic Pager: [phone]. documented in this encounterSelect Medical [facility] - [place]10-14-2022 Miscellaneous Notes* Telephone Encounter - Marta Palacio Ma - 01/03/2022 10:49 AM EDT Pt notified of results via [employer]. Marta Palacio Ma * Telephone Encounter - Stas Mora MD - 01/02/2022 6:07 PM EDT Please notify patient that his thyroid ultrasound looks OK, the nodules are all small, appear normal, and do not need any further evaluation pr follow up. Stas Mora MD documented in this encounterSelect Medical [facility]ty [facility] - [place]10-06-2022 History of Present illness Narrative* Stas Mora MD - 12/26/2021 11:20 AM EDT Chief Complaint Patient presents with: [facility] F/U [facility] Roby Flores is a 86 [...] about 1-2 hours. Pt was admitted to [facility] ER 12/21/21 with stroke sx however [...] in the last year. Below copied from [facility] [employer]: HPI History of Present Illness Chief Complaint: [...] realized that [facility] she went to check on him [...] extremities. 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 Dorsi and plantar flexion intact. [...] Chronic anticoagulation: Status: Acute Code(s): Z79.01 - assisted (current) 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 Medications at Discharge [...] symptoms resolved. Hospital Course: 1. TIA/paroxysmal A. [id number]-old male presented with right-sided weakness and aphasia, [...] Coronary atherosclerosis of unspecified type of vessel, [place] or graft Coronary artery disease Other and [...] 12/06/2024 ADVANCE DIRECTIVE DISCUSSION Completed Data reviewed [facility] reports from 10/21/21-10/22/21 ASSESSMENT/PLAN: 1. Hospital [...] unspecified vessel or lesion type, unspecified whether [place] or transplanted heart - ICD9: 414.00, ICD10: I25.10 Continue current medications. Follow up in Dec as scheduled with fasting labs prior. I agree with the Chief Complaint, ROS, and Past Histories independently gathered by the clinical bilingual patient support caseworker and the remaining scribed note accurately describes [...] AM. Marta Palacio Ma documented in this encounterSelect Medical Specialty [facility] - [place]09-30-2022 Miscellaneous Notes* Telephone Encounter - Senia Phillips [facility] - 12/20/2021 4:39 PM EDT [facility] [place] Ambulatory Pharmacy Anticoagulation Clinic Anticoagulation Episode Summary Anticoagulation Care Providers Provider Role Specialty Phone number Stas Mora MD Referring Family Medicine [phone] Roby Flores is a 86 year old year old male patient being evaluated today for a Telemanagement visit. Patient is currently on the following anticoagulant(s) Warfarin. Labs PT INR (no units) Date Value 05/15/2021 2.3 04/17/2021 1.9 03/13/2021 Test sent to [facility]. INR (no units) Date Value 12/20/2021 [...] ALLERGIES No Known Allergies Indication for Warfarin: assisted current use of anticoagulant Paroxysmal atrial fibrillation (hcc) Anticoagulation Episode Summary Current INR goal: 2.0-3.0 Assessment: INR result of 2.1 is therapeutic Plan: Current Warfarin Dosing As of 12/20/2021 Full warfarin instructions: 2.5 mg every day Sent Tripcover message Advised patient to continue current weekly dose as noted above Next lab INR check scheduled on 01/03/2022 Senia Phillips RPh Clinical Pharmacist, Pharmacy Anticoagulation Clinic Pharmacy Anticoagulation Clinic Pager: [phone]. documented in this encounterSelect Medical [facility] - [place]09-16-2022 Miscellaneous Notes* Telephone Encounter - Senia Phillips RPh - 12/06/2021 4:29 PM EDT [facility] [place] Ambulatory [facility] Anticoagulation Clinic Anticoagulation Episode Summary Anticoagulation Care Providers Provider Role Specialty Phone number Stas Mora MD Referring [facility] [phone] Roby Flores is a 86 year old year old male patient being evaluated today for a Telemanagement visit. Patient is currently on the following anticoagulant(s) Warfarin. Labs PT INR (no units) Date Value 05/15/2021 2.3 04/17/2021 1.9 03/13/2021 Test sent to [facility]. INR (no units) Date Value 12/06/2021 [...] ALLERGIES No Known Allergies Indication for Warfarin: assisted current use of anticoagulant Paroxysmal atrial fibrillation [...] Pharmacy Anticoagulation Clinic Pharmacy Anticoagulation Clinic Pager: [phone]. documented in this encounterSelect Medical [facility] - [place]09-02-2022 Miscellaneous Notes* Telephone Encounter - Janice Huang RPh - 11/22/2021 5:17 PM EDT [facility] [place] Ambulatory [facility] Anticoagulation Clinic Anticoagulation Episode Summary Anticoagulation Care Providers Provider Role Specialty Phone number Stas Mora MD Referring [facility] [phone] Roby Flores is a 86 year old year old male patient being evaluated today for a Telemanagement visit. Patient is currently on the following anticoagulant(s) Warfarin. Labs PT INR (no units) Date Value 05/15/2021 2.3 04/17/2021 1.9 03/13/2021 Test sent to [facility]. INR (no units) Date Value 11/22/2021 [...] ALLERGIES No Known Allergies Indication for Warfarin: assisted current use of anticoagulant Paroxysmal atrial fibrillation [...] Advised pt to Call Coumadin Clinic at [phone] to confirm dosing and follow-up Janice Huang RP Clinical Pharmacist, Pharmacy Anticoagulation Clinic Pharmacy Anticoagulation Clinic Pager: [phone]. documented in this encounterSelect Medical [facility]ty [facility] - [place]08-19-2022 Miscellaneous Notes* Telephone Encounter - Senia Phillips RPh - 11/08/2021 5:01 PM EDT [facility] [place] Ambulatory [facility] Anticoagulation Clinic Anticoagulation Episode Summary Anticoagulation Care Providers Provider Role Specialty Phone number Stas Mora MD Referring [facility] [phone] Roby Flores is a 86 year old year old male patient being evaluated today for a Telemanagement visit. Patient is currently on the following anticoagulant(s) Warfarin. Labs PT INR (no units) Date Value 05/15/2021 2.3 04/17/2021 1.9 03/13/2021 Test sent to [facility]. 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 documented in this encounterSelect Medical [facility]ty [facility] - [place]08-05-2022 Miscellaneous Notes* Telephone Encounter - Janice Huang RPh - 10/25/2021 4:16 PM EDT [facility] [place] Ambulatory [facility] Anticoagulation Clinic Anticoagulation Episode Summary Anticoagulation Care Providers Provider Role Specialty Phone number Stas Mora MD Referring [facility] [phone] Roby Flores is a 86 year old year old male patient being evaluated today for a Telemanagement visit. Patient is currently on the following anticoagulant(s) Warfarin. Labs PT INR (no units) Date Value 05/15/2021 2.3 04/17/2021 1.9 03/13/2021 Test sent to [facility]. INR (no units) Date Value 10/25/2021 [...] No Known Allergies Indication for Warfarin: 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 Paroxysmal atrial fibrillation [...] Pharmacy Anticoagulation Clinic Pharmacy Anticoagulation Clinic Pager: [phone] . documented in this encounterSelect Medical Specialty Hospital - [place]07-08-2022 Miscellaneous Notes* Telephone Encounter - Elana Campbell ([employer]ire [employer] Tube Repairer) - 09/27/2021 4:50 PM EDT PATIENT CALL Patient called call center regarding results. Patient called and stated he had his INR checked today (09/27) and it was 2.3. Patient can be called at [phone] with any questions or sent MC message if result is within range. PT INR (no units) Date Value 05/15/2021 2.3 04/17/2021 1.9 03/13/2021 Test sent to [facility]. INR (no units) Date Value 09/27/2021 2.3 09/13/2021 2.7 08/30/2021 2.1 Elana Campbell (Tire And Tube Repairer) * Telephone Encounter - Yomi Wills RP - 09/27/2021 6:28 AM EDT Patient due to test INR today. Will continue to monitor for results. Yomi Wills [facility] documented in this encounterSelect Medical Specialty Hospital - [place]06-24-2022 Miscellaneous Notes* Telephone Encounter - Senia Phillips [facility] - 09/13/2021 4:11 PM EDT [facility] [place] Ambulatory Pharmacy Anticoagulation Clinic Anticoagulation Episode Summary Anticoagulation Care Providers Provider Role Specialty Phone number Stas Mora MD Referring [facility] [phone] Roby Flores is a 86 year old year old male patient being evaluated today for a Telemanagement visit. Patient is currently on the following anticoagulant(s) Warfarin. Labs PT INR (no units) Date Value 05/15/2021 2.3 04/17/2021 1.9 03/13/2021 Test sent to [facility]. INR (no units) Date Value 09/13/2021 [...] ALLERGIES No Known Allergies Indication for Warfarin: assisted current use of anticoagulant Paroxysmal atrial fibrillation (hcc) Anticoagulation Episode Summary Current INR goal: 2.0-3.0 Assessment: INR result of 2.7 is therapeutic Plan: Sent Tripcover message Advised patient to continue current weekly dose Next lab INR check scheduled on 09/27/2021 Senia Phillips RPh Clinical Pharmacist, Pharmacy Anticoagulation Clinic Pharmacy Anticoagulation Clinic Pager: [phone] . documented in this encounterSelect Medical Specialty Hospital - [place]06-16-2022 History of Present illness Narrative* Stas Mora MD - 09/05/2021 11:20 AM EDT Medical B eligibilty date 1999 Date of last exam 08/28/2020 PAST MEDICAL HISTORY Diagnosis Date Coronary atherosclerosis of unspecified type of vessel, [place] or graft Coronary artery disease Other and [...] his POA. I am willing to follow [place] advanced directives. Depression screen He in the [...] to remember the following three words: Banana, [place] and Chair Visuospatial/Executive Functioning: Clock drawin/2 (Normal [...] Past Histories independently gathered by the clinical bilingual patient support caseworker and the remaining scribed note accurately describes my personal service to the patient. Stas Mora MD The documentation for this note was completed by Rosie Cruz Ma acting as scribe for Stas Mora MD. September 05, 2021 11:33 AM. Rosie Cruz Ma documented in this encounterSelect Medical Specialty Hospital - [place]06-10-2022 Miscellaneous Notes* Telephone Encounter - Senia Phillips [facility] - 08/30/2021 5:10 PM EDT [facility] [place] Ambulatory Pharmacy Anticoagulation Clinic Anticoagulation Episode Summary Anticoagulation Care Providers Provider Role Specialty Phone number Stas Mora MD Referring [facility] [phone] Roby Flores is a 86 year old year old male patient being evaluated today for a Telemanagement visit. Patient is currently on the following anticoagulant(s) Warfarin. Labs PT INR (no units) Date Value 05/15/2021 2.3 04/17/2021 1.9 03/13/2021 Test sent to [facility]. INR (no units) Date Value 08/30/2021 [...] No Known Allergies Indication for Warfarin: 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 Paroxysmal atrial fibrillation (hcc) Anticoagulation Episode Summary Current INR goal: 2.0-3.0 Assessment: INR result of 2.1 is therapeutic Plan: Sent Tripcover message Advised patient to continue current weekly dose Next lab INR check scheduled on 09/13/2021 Senia Phillips RPh Clinical Pharmacist, Pharmacy Anticoagulation Clinic Pharmacy Anticoagulation Clinic Pager: [phone] . documented in this encounterSelect Medical [facility]ty [facility] - [place]06-10-2022 Miscellaneous Notes* Telephone Encounter - Jenna Fitzpatrick APRN.CNP - 08/30/2021 8:56 AM EDT Needs order for PT/INR, order signed. Jenna Fitzpatrick APRN.CNP documented in this encounterSelect Medical Specialty Hospital - [place]05-27-2022 Miscellaneous Notes* Telephone Encounter - Rosie Cruz Ma - 08/16/2021 2:18 PM EDT INR has been reviewed in another encounter. Rosie Cruz Ma documented in this encounterSelect Medical Specialty Hospital - [place]05-13-2022 Miscellaneous Notes* Telephone Encounter - Senia Phillips RPh - 08/02/2021 4:11 PM EDT [facility] [place] Ambulatory Pharm[facility] Anticoagulation Clinic Anticoagulation Episode Summary Anticoagulation Care Providers Provider Role Specialty Phone number Stas Mora MD Referring [facility] [phone] Roby Flores is a 85 year old year old male patient being evaluated today for a Telemanagement visit. Patient is currently on the following anticoagulant(s) Warfarin. Labs PT INR (no units) Date Value 05/15/2021 2.3 04/17/2021 1.9 03/13/2021 Test sent to [facility]. INR (no units) Date Value 08/02/2021 [...] ALLERGIES No Known Allergies Indication for Warfarin: assisted current use of anticoagulant Paroxysmal atrial fibrillation [...] Pharmacy Anticoagulation Clinic Pharmacy Anticoagulation Clinic Pager: [phone] . documented in this encounterSelect Medical Specialty [facility] - [place]04-27-2022 Miscellaneous Notes* Telephone Encounter - Rosie Cruz [...] months Stas Mora MD documented in this encounterSelect Medical Specialty Hospital - [place]04-25-2022 Miscellaneous Notes* Telephone Encounter - Elvis Kearney APRN.CNP - 07/15/2021 12:39 PM EDT The following approved medication requests have been transmitted electronically. Pending Prescriptions Disp Refills WARFARIN 2.5 MG TABLET 135 tablet 3 Sig: TAKE 5 MG EVERY MON, DIXIE 2.5 MG ALL OTHER DAYS MESFIN: No Elvis Kearney APRN.CNP documented in this encounterSelect Medical Specialty Hospital - [place]04-18-2022 History of Present illness Narrative* Stas Mora [...] SOB. No swelling in feet orankles. No otorhinolaryngologist. Taking Fosinopril 10 mg daily. Lipid: Taking [...] Coronary atherosclerosis of unspecified type of vessel, [place] or graft Coronary artery disease Other and [...] unspecified vessel or lesion type, unspecified whether [place] or transplanted heart - ICD9: 414.00, ICD10: [...] Past Histories independently gathered by the clinical bilingual patient support caseworker and the remaining scribed note accurately describes my personal service to the patient. Medical Decision Making: Problems: Moderate: 2+ stable chronic illnesses Data: Unique test(s) ordered: 2 Risk: Moderate: Drug management Medical Decision Making Level: 4 - Moderate Stas Mora MD The documentation for this note was completed by Marta Plaacio Ma acting as scribe for Stas Mora MD. July 08, 2021 10:37 AM. Marta Palacio Ma documented in this encounterSelect Medical [facility]ty [facility] [place]04-13-2022 Miscellaneous Notes* Telephone Encounter - Coretta Jalloh [facility] - 07/03/2021 3:40 PM EDT [facility] [place] Ambulatory Pharm[facility] Anticoagulation Clinic Anticoagulation Episode Summary Anticoagulation Care Providers Provider Role Specialty Phone number Stas Mora MD Referring Family Practice [phone] Roby Flores is a 85 year old year old male patient being evaluated today for a Lab INR. Patient is currently on the following anticoagulant(s) Warfarin. Labs PT INR (no units) Date Value 05/15/2021 2.3 04/17/2021 1.9 03/13/2021 Test sent to [facility]. INR (no units) Date Value 07/03/2021 4.5 06/12/2021 3.5 Creatinine (mg/dL) Date Value 03/13/2021 0.80 08/28/2020 0.83 Bilirubin, Total (mg/dL) Date Value 03/13/2021 0.5 ALT (U/L) Date Value 03/13/2021 24 AST (U/L) Date Value 03/13/2021 24 CrCl cannot be calculated (Unknown ideal weight.). ALLERGIES No Known Allergies Indication for Warfarin: assisted current use of anticoagulant Paroxysmal atrial fibrillation [...] Pharmacy Anticoagulation Clinic Pharmacy Anticoagulation Clinic Pager: [phone] . * Telephone Encounter - Marta Palacio Ma - 07/03/2021 3:05 PM EDT INR 4.5. Results routed to pharmacist who Handles pt coumadin. Marta Palacio Ma documented in this encounterSelect Medical Specialty [facility] - [place]03-23-2022 Miscellaneous Notes* Telephone Encounter - Coretta Jalloh RPh - 06/12/2021 3:20 PM EDT [facility] [place] Ambulatory [facility] Anticoagulation Clinic Anticoagulation Episode Summary Anticoagulation Care Providers Provider Role Specialty Phone number Stas Mora MD Referring [facility] [phone] Roby Flores is a 85 year old year old male patient being evaluated today for a Lab INR. Patient is currently on the following anticoagulant(s) Warfarin. Labs PT INR (no units) Date Value 05/15/2021 2.3 04/17/2021 1.9 03/13/2021 Test sent to [facility]. INR (no units) Date Value 06/12/2021 3.5 Creatinine (mg/dL) Date Value 03/13/2021 0.80 08/28/2020 0.83 Bilirubin, Total (mg/dL) Date Value 03/13/2021 0.5 ALT (U/L) Date Value 03/13/2021 24 AST (U/L) Date Value 03/13/2021 24 CrCl cannot be calculated (Unknown ideal weight.). ALLERGIES No Known Allergies Indication for Warfarin: 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 Paroxysmal atrial fibrillation (hcc) Anticoagulation Episode Summary Current INR goal: 2.0-3.0 Assessment: INR result of 3.5 is SUPRAtherapeutic due to: No obvious cause Plan: Called and spoke to patient/caregiver Advised patient to hold 1 dose then continue current regimen Next lab INR check scheduled on 07/03 in [place]. Patient verbalizes understanding of the plan. Patient denies need for refills. Coretta Jalloh RPh Clinical Pharmacist, Pharmacy Anticoagulation Clinic Pharmacy Anticoagulation Clinic Pager: [phone] . * Telephone Encounter - Rosie Cruz Ma - 06/12/2021 3:08 PM EDT Pt's INR results have finalized. Routing to pharm to review and advise. Rosie Cruz Ma documented in this encounterSelect [facility] History of Present illness Narrative* Hussein George [...] 12, 2020 5:01 PM documented in this encounterSelect [facility]Dis[facility] summary Author Inderjit Gillespie [facility] Note Date/Time September 01, 2024 10:2 5am [facility] Medical Records Department [address] [place] [address] Emergency Department Summary 09/01/24 MR#: [id number] Acct: [id number] Name: ROBY FLORES Rep #:[id number] : [...] Prior similar symptoms: No Recent Illness/Hospitalization: [facility] Medical History Chronic anticoagulation TIA (transient ischemic [...] shoulders elbows and wrist. 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 Neurologically he is awake alert. Answering [...] 87.5 H Lymph % (Auto) 4.8 L [place] % (Auto) 5.7 Eos % (Auto) 1.2 [...] Clarity Clear Urine pH 8.0 Ur Specific [place] 1.010 Urine Protein 15 H Urine Glucose [...] No fracture or dislocation present. Reading Location: [facility] 09/01/24 09:05 IMPRESSION: Cerebral atrophy. Mucosal thickening of the ethmoid sinuses as well as opacification of the left maxillary sinus. Reading Location: [facility] Chest X-Ray 09/01/24 09:25 IMPRESSION: No acute abnormality is seen. [facility], 2 views, AP and lateral, [...] to thrive Disposition Disposition: Acute Care Hospital [facility] What to do if you have Problems For any increased pain, shortness of breath, bleeding, nausea or vomiting, chestpain, or any unexpected problems, contact your Primary Care Provider. Call [facility] ([phone]) or report to the closest Emergency Room. Call 911 if necessary. 09/01/24 1025 <Electronically signed by Inderjit Gillespie MD> Cosigner Signature (if applicable): CC: Dr. Stas Mora MD ~ Signed [facility] Work Phone: Evaluation + Plan note No data available for this section [facility] Evaluation note* Diagnosis 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- Primary Long-term (current) 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 Paroxysmal atrial fibrillation (HCC) Atrial fibrillation [facility] Diagnosis 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- Primary Long-term (current) 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 Paroxysmal atrial fibrillation (HCC) Atrial fibrillation [facility]* Diagnosis Essential hypertension, benign- Primary Atherosclerosis 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, unspecified vessel or lesion type, unspecified whether [place] or transplanted heart Paroxysmal atrial fibrillation (HCC) Atrial fibrillation Primary osteoarthritis of both knees Primary localized osteoarthrosis, lower leg documented in [facility]* Diagnosis Atherosclerosis 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, unspecified vessel or lesion type, unspecified whether [place] or transplanted heart- Primary Essential hypertension, benign documented [facility]* Diagnosis assisted current use of anticoagulant- Primary Long-term (current) 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 Paroxysmal atrial fibrillation (HCC) Atrial fibrillation documented [facility] this [facility]* Diagnosis Elevated INR- Primary Abnormal coagulation profile [facility]* Diagnosis assisted current use of anticoagulant- Primary Long-term (current) 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 Paroxysmal atrial fibrillation (HCC) Atrial fibrillation [facility]* Diagnosis Encounter for Medicare annual wellness exam- Primary Routine general medical examination at a [facility] facility Paroxysmal atrial fibrillation (HCC) Atrial fibrillation Essential hypertension, benign [facility]* Diagnosis assisted current use of anticoagulant- Primary Long-term (current) 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 Encounter for monitoring Coumadin therapy Encounter for therapeutic drug monitoring documented [facility] this encounter [facility]* Diagnosis assisted current use of anticoagulant- Primary Long-term (current) 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 Paroxysmal atrial fibrillation (HCC) Atrial fibrillation [facility]* Diagnosis assisted current use of anticoagulant- Primary Long-term (current) 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 Paroxysmal atrial fibrillation (HCC) Atrial fibrillation documented in this encounter [facility]* Diagnosis Onset Date Resolution Status Chronic anticoagulation acut e TIA (transient ischemic attack) acute CAD (coronary artery disease) [facility] Work Phone: Evaluation note* Diagnosis Onset Date Resolution Status Chronic anticoagulation acut e Stroke-like symptoms acute TIA (transient ischemic attack) acute CAD (coronary artery disease) [facility] Work Phone: Evaluation note* Diagnosis Hospital discharge follow-up- Primary Other follow-up examination Encounter for immunization Need for other specified prophylactic vaccination against single bacterial disease TIA (transient ischemic attack) Unspecified transient cerebral ischemia Thyroid nodule Nontoxic uninodular goiter Essential hypertension, benign Paroxysmal atrial fibrillation (HCC) Atrial fibrillation Atherosclerosis 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, unspecified vessel or lesion type, unspecified whether [place] or transplanted heart documented in this encounter [facility]* Diagnosis assisted current use of anticoagulant- Primary Long-term (current) 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 Paroxysmal atrial fibrillation (HCC) Atrial fibrillation [facility]* Diagnosis assisted current use of anticoagulant- Primary Long-term (current) 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 Paroxysmal atrial fibrillation (HCC) Atrial fibrillation [facility]* Diagnosis assisted current use of anticoagulant- Primary Long-term (current) 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 Paroxysmal atrial fibrillation (HCC) Atrial fibrillation documented in this encounter [facility]* Diagnosis Encounter for Medicare annual wellness exam- Primary Routine general medical examination at a [facility] facility Paroxysmal atrial fibrillation (HCC) Atrial fibrillation Essential hypertension, benign Hyperlipidemia, unspecified hyperlipidemia type documented in this encounter [facility]* Diagnosis 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- Primary Long-term (current) 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 Paroxysmal atrial fibrillation (HCC) Atrial fibrillation documented in this encounter [facility]* Diagnosis assisted current use of anticoagulant- Primary Long-term (current) 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 Paroxysmal atrial fibrillation (HCC) Atrial fibrillation documented in this encounter [facility]* Diagnosis assisted current use of anticoagulant- Primary Long-term (current) 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 Paroxysmal atrial fibrillation (HCC) Atrial fibrillation documented in this encounter [facility]* Diagnosis assisted current use of anticoagulant- Primary Long-term (current) 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 Paroxysmal atrial fibrillation (HCC) Atrial fibrillation documented in this encounter [facility] noteNo assessment information availableWWright-[facility] Work Phone: Evaluation note* Diagnosis assisted current use of anticoagulant- Primary Long-term (current) 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 Paroxysmal atrial fibrillation (HCC) Atrial fibrillation documented in this encounter [facility]* Diagnosis Cerebral infarction, unspecified mechanism (HCC)- Primary Generalized weakness Other malaise and fatigue Speech disturbance, unspecified type Hyperlipidemia, unspecified hyperlipidemia type Essential hypertension, benign Paroxysmal atrial fibrillation (HCC) Atrial fibrillation documented in this encounter [facility]* Diagnosis Cerebral infarction, unspecified mechanism (HCC) documented in this encounter [facility]* Diagnosis assisted current use of anticoagulant- Primary Long-term (current) 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 Paroxysmal atrial fibrillation (HCC) Atrial fibrillation documented in this encounter [facility]* Diagnosis Essential hypertension, benign- Primary Paroxysmal atrial fibrillation (HCC) Atrial fibrillation Atherosclerosis 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, unspecified vessel or lesion type, unspecified whether [place] or transplanted heart Hyperlipidemia, unspecified hyperlipidemia type History of stroke with 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 Speech disturbance, unspecified type documented in this encounter [facility]* Diagnosis Abnormal CBC- Primary Other abnormal blood chemistry [facility] Diagnosis assisted current use of anticoagulant- Primary Long-term (current) 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 Paroxysmal atrial fibrillation (HCC) Atrial fibrillation [facility]* Diagnosis assisted current use of anticoagulant- Primary Long-term (current) 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 Paroxysmal atrial fibrillation (HCC) Atrial fibrillation [facility]* Diagnosis assisted current use of anticoagulant- Primary Long-term (current) 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 Paroxysmal atrial fibrillation (HCC) Atrial fibrillation [facility]* Diagnosis assisted current use of anticoagulant- Primary Long-term (current) 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 Paroxysmal atrial fibrillation (HCC) Atrial fibrillation [facility]* Diagnosis 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, psychotic disturbance, mood disturbance, or anxiety (HCC)- Primary Essential hypertension, benign Paroxysmal atrial fibrillation (HCC) Atrial fibrillation [facility]* Diagnosis Edema of both lower legs- Primary [facility]* Diagnosis 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- Primary Long-term (current) 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 Paroxysmal atrial fibrillation (HCC) Atrial fibrillation [facility]* Diagnosis assisted current use of anticoagulant Long-term (current) 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 Paroxysmal atrial fibrillation (HCC) Atrial fibrillation [facility]* Diagnosis Essential hypertension, benign- Primary Hyperlipidemia, unspecified hyperlipidemia type Edema of both lower legs Paroxysmal atrial fibrillation (HCC) Atrial fibrillation History of stroke with 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, psychotic disturbance, mood disturbance, or anxiety (HCC) Urinary frequency Abnormal CBC Other abnormal blood chemistry [facility] Diagnosis 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- Primary Long-term (current) 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 Paroxysmal atrial fibrillation (HCC) Atrial fibrillation [facility] Diagnosis 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- Primary Long-term (current) 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 Paroxysmal atrial fibrillation (HCC) Atrial fibrillation [facility]* Diagnosis Left hip pain Pain in joint, pelvic region and thigh [facility]* Diagnosis assisted current use of anticoagulant- Primary Long-term (current) 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 Paroxysmal atrial fibrillation (HCC) Atrial fibrillation documented [facility] this encounter [facility]* Diagnosis Acute right-sided low back pain, unspecified whether sciatica present documented in this encounter [facility]* Diagnosis Paroxysmal atrial fibrillation (HCC)- Primary Atrial fibrillation documented [facility] this [facility]* Diagnosis assisted current use of anticoagulant- Primary Long-term (current) 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 Paroxysmal atrial fibrillation (HCC) Atrial fibrillation documented in this encounter [facility]* Diagnosis assisted current use of anticoagulant- Primary Long-term (current) 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 Paroxysmal atrial fibrillation (HCC) Atrial fibrillation documented in this encounter [facility]* Diagnosis Dementia, unspecified dementia severity, unspecified dementia type, unspecified whether behavioral, psychotic, or mood disturbance or anxiety (HCC)- Primary documented in this encounter [facility]* Diagnosis 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- Primary Long-term (current) 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 Paroxysmal atrial fibrillation (HCC) Atrial fibrillation documented in this encounter [facility]* Diagnosis Dementia, unspecified dementia severity, unspecified [...] and musculoskeletal systems documented in this encounter [facility]* Diagnosis Cognitive impairment, mild, so stated Mild cognitive impairment, so stated documented in this encounter [facility]* Diagnosis Essential hypertension, benign- Primary Hyperlipidemia, unspecified hyperlipidemia type Atherosclerosis 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, unspecified vessel or lesion type, unspecified whether [place] or transplanted heart Paroxysmal atrial fibrillation (HCC) Atrial fibrillation Edema of both lower legs History of stroke with 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 Dementia, unspecified dementia severity, unspecified dementia type, unspecified whether behavioral, psychotic, or mood disturbance or anxiety (HCC) documented in this encounter [facility]* 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) Paralysis agitans documented [facility] this encounter [facility]* Diagnosis Bursitis of right elbow, unspecified bursa- Primary documented in this [facility]* Diagnosis Moderate dementia without behavioral disturbance, psychotic disturbance, mood disturbance, or anxiety, unspecified dementia type (HCC)- Primary Hallucinations Screening for depression Encounter for screening examination for other mental health and behavioral disorders documented in this encounter [facility] for referral (narrative)* Diagnostic Procedure Only (Routine) - Authorized Specialty Diagnoses / Procedures Referred By Kashac t Referred To Contact US IMAGING Diagnoses Thyroid nodule Procedures US THYROID/PARATHYROID US SOFT TISSUE HEAD & NECK REAL TIME IMGE Stas Queen MD [address] [place] [address] Us Imaging Referral ID Status Reason Start Date Expiration Date Visits Requested Visits Authorized [id number] Authorized Auto-Generat ed Referral 12/26/2021 01/25/[address] [facility] for referral (narrative)* Diagnostic Procedure Only (Urgent) - Closed Specialty Diagnoses / Procedures Referred By Kashac t Referred To Contact XR IMAGING Diagnoses Left hip pain Procedures XR HIP GENERAL 3V PELV/AP/LAT LEFT RADEX HIP UNILATERAL WITH PELVIS 2-3 VIEWS Jenna Fitzpatrick APRN.F[employer]ERGL[employer] TECHNICIAN [address] [place] [address] [place] [address] Referral ID Status Reason Start Date Expiration Date V isits Requested Visits Authorized [id number] Closed Auto-Generate d Referral 05/21/2022 06/20/[address] [facility] for referral (narrative)No reason for referral information availableWWright-[facility] Work Phone: Reason for visit Narrative* Diagnostic Procedure Only (Urgent) - Closed Specialty Diagnoses / Procedures Referred By Contac t Referred To Contact XR IMAGING Diagnoses Left hip pain Procedures XR HIP GENERAL 3V PELV/AP/LAT LEFT RADEX HIP UNILATERAL WITH PELVIS 2-3 VIEWS Jenna Fitzpatrick APRN.CNP [address] [place] [address] [place] [address] Referral ID Status Reason Start Date Expiration Date V isits Requested Visits Authorized [id number] Closed Auto-Generate d Referral 05/21/2022 06/20/[address] [facility] for visit Narrative* MRI/CT (Routine) - Closed Specialty Diagnoses / Procedures Referred By Jennifer t Referred To Contact MR IMAGING Diagnoses Cognitive impairment, mild, so stated Procedures MRI BRAIN W QUANT WO IVCON MRI BRAIN BRAIN STEM W/O CONTRAST MATERIAL Luciana Cisneros MD [address] [place] [address] Phone: tel: fax: [place] [address] Referral ID Status Reason Start Date Expiration Date V isits Requested Visits Authorized [id number] Closed Auto-Generate d Referral 05/11/2024 07/10/2024 1 1 [facility] Summary Purpose Family History No Family History [...] Will Yes December 21 6:17pm Power of [employer]ble [employer] Gran[employer]isher Yes December 21 022 6:17pm Name of Medical Power of [employer]ble [employer] IRAJ HULL , DAUGHTER December 21, 2021 6:17pm Advance Directive Response Recorded Date/ Time Name of Medical Power of [employer]ble [employer] Gran[employer] Anabella Hull December 21, 2021 8:06pm Living Will Yes December 21 8:06pm Power of [employer]ble [employer]isher Yes December 21 8:06pm Advance Directive Response Recorded Date/ Time Living Will Yes February 10, 023 3:17pm Power of [employer]ble [employer]isher Yes February 10, 2023 3:17pm Name of Medical Power of [employer] daughter-yomi hull February 10, 2023 3:17pm Advance Directive Response Recorded Date/ Time Do you have a Healthcare Power of [employer]ble [employer] Granite [employer]isher? Yes September 01, 2024 7:36am Name of Medical Power of [employer]isher anabella hull September 01, 2024 7:36am Advance Directive Response Recorded Date/ Time Do you have a Healthcare Power of [employer]ble [employer] Gran[employer]isher? Yes September 01, 2024 12:00pm Name of Medical Power of [employer]ble [employer] Granite [employer]isher anabella hull September 01, 2024 12:00pm Chief [...] HIGH COMPLEX 45 MINS Luciana Cisneros MD [address] [place] [address] [facility] [place] [address] [place] [address] Referral ID Status Reason Start Date Expiration Date Visits Requested Visits Authorized [id number] Pending Review Auto-Generat ed Referral 04/27/2024 04/27/2025 1 1 Specialty Diagnoses / Procedures Referred By Contac t Referred To Contact MR IMAGING Diagnoses Cognitive impairment, mild, so stated Procedures MRI BRAIN W QUANT WO IVCON MRI BRAIN BRAIN STEM W/O CONTRAST MATERIAL Luciana Cisneros MD [address] [place] [address] Mr Imaging [facility] Referral ID Status Reason Start Date Expiration Date Visits Requested Visits Authorized [id number] Pending Review Auto-Generat ed Referral 04/27/2024 05/27/2025 1 1 Specialty Diagnoses / Procedures Referred By Contac t Referred To Contact Gerontology Diagnoses Dementia, unspecified dementia severity, unspecified dementia type, unspecified whether behavioral, psychotic, or mood disturbance or anxiety (HCC) Procedures CONSULT TO GERIATRICS OFFICE/OUTPATIENT [facility] 60 MINUTES Stas Mora MD [address] [place], [place] [id number] Referral ID Status Reason Start Date Expiration Date Visits Requested Visits Authorized [id number] Authorized PCP Requested Referral 04/25/2024 04/25/2025 1 1 Specialty Diagnoses / Procedures Referred By Contac t Referred To Contact MR IMAGING Diagnoses Cerebral infarction, unspecified mechanism (HCC) Procedures MRI BRAIN WO IVCON MRI BRAIN BRAIN STEM W/O CONTRAST MATERIAL Stas Mora MD [address] [place] [address] [place] [id number] Referral ID Status Reason Start Date Expiration Date Visits Requested Visits Authorized [id number] Pending Review Auto-Genera eli Referral Patient Cleared - Admin/Chair man/Directo r advise to proceed or did not respond 3 03/17/2024 1 1 Additional Source Comments (unrecognized sect ion and content) No Status Records FoundNo Status Records FoundNo Status Records FoundNo Status Records FoundNo Status Records FoundNo Status Records FoundNo Status Records Found INFORMATION SOURCE (unrecogn ized section and content) DATE CREATED AUTHOR 09/11/2017 [facility] DATE CREATED AUTHOR AUTHOR'S ORGANIZ ATION 09/11/2017 [facility] DATE CREATED AUTHOR AUTHOR'S ORGANIZ ATION 09/15/2017 [facility] DATE CREATED AUTHOR AUTHOR'S ORGANIZ ATION 08/12/2023 [facility] ([place] DATE CREATED AUTHOR AUTHOR'S ORGANIZ ATION 05/24/[address] [facility] DATE CREATED AUTHOR AUTHOR'S ORGANIZ ATION 09/29/2024 [facility] DATE CREATED AUTHOR AUTHOR'S ORGANIZ ATION 10/02/2024 [facility] Source Comments (unrecognize d section and content) In the event this informatio n is protected by the Federal Confidentiality of Alcohol and Drug Abuse Patient Records regulations: The Federal rules restrict any use of the information to criminally investigate or prosecute any alcohol or drug abuse patient.[facility] the event this information is protected by the Federal Confidentiality of Alcohol and Drug Abuse Patient Records regulations: The Federal rules restrict any use of the information to criminally investigate or prosecute any alcohol or drug abuse patient.[facility] [facility] [place] the event this information is protected by the Federal Confidentiality of Alcohol and Drug Abuse Patient Records regulations: The Federal rules restrict any use of the information to criminally investigate or prosecute any alcohol or drug abuse patient.[facility] [place] the event this information is protected by the Federal Confidentiality of Alcohol and Drug Abuse Patient Records regulations: The Federal rules restrict any use of the information to criminally investigate or prosecute any alcohol or drug abuse patient.[facility] [place] the event this information is protected by the Federal Confidentiality of Alcohol and Drug Abuse Patient Records regulations: The Federal rules restrict any use of the information to criminally investigate or prosecute any alcohol or drug abuse patient.[facility] [place] the event this information is protected by the Federal Confidentiality of Alcohol and Drug Abuse Patient Records regulations: The Federal rules restrict any use of the information to criminally investigate or prosecute any alcohol or drug abuse patient.[facility] [place] the event this information is protected by the Federal Confidentiality of Alcohol and Drug Abuse Patient Records regulations: The Federal rules restrict any use of the information to criminally investigate or prosecute any alcohol or drug abuse patient.[facility] [place]In the event this information is protected by the Federal Confidentiality of Alcohol and Drug Abuse Patient Records regulations: The Federal rules restrict any use of the information to criminally investigate or prosecute any alcohol or drug abuse patient.[facility] [place]In the event this information is protected by the Federal Confidentiality of Alcohol and Drug Abuse Patient Records regulations: The Federal rules restrict any use of the information to criminally investigate or prosecute any alcohol or drug abuse patient.[facility] [place] the event this information is protected by the Federal Confidentiality of Alcohol and Drug Abuse Patient Records regulations: The Federal rules restrict any use of the information to criminally investigate or prosecute any alcohol or drug abuse patient.[facility] [place]In the event this information is protected by the Federal Confidentiality of Alcohol and Drug Abuse Patient Records regulations: The Federal rules restrict any use of the information to criminally investigate or prosecute any alcohol or drug abuse patient.[facility] [place]In the event this information is protected by the Federal Confidentiality of Alcohol and Drug Abuse Patient Records regulations: The Federal rules restrict any use of the information to criminally investigate or prosecute any alcohol or drug abuse patient.[facility] [place] the event this information is protected by the Federal Confidentiality of Alcohol and Drug Abuse Patient Records regulations: The Federal rules restrict any use of the information to criminally investigate or prosecute any alcohol or drug abuse patient.[facility] [place] the event this information is protected by the Federal Confidentiality of Alcohol and Drug Abuse Patient Records regulations: The Federal rules restrict any use of the information to criminally investigate or prosecute any alcohol or drug abuse patient.[facility] [place]In the event this information is protected by the Federal Confidentiality of Alcohol and Drug Abuse Patient Records regulations: The Federal rules restrict any use of the information to criminally investigate or prosecute any alcohol or drug abuse patient.[facility] [place]In the event this information is protected by the Federal Confidentiality of Alcohol and Drug Abuse Patient Records regulations: The Federal rules restrict any use of the information to criminally investigate or prosecute any alcohol or drug abuse patient.[facility] [place]In the event this information is protected by the Federal Confidentiality of Alcohol and Drug Abuse Patient Records regulations: The Federal rules restrict any use of the information to criminally investigate or prosecute any alcohol or drug abuse patient.[facility] [place]In the event this information is protected by the Federal Confidentiality of Alcohol and Drug Abuse Patient Records regulations: The Federal rules restrict any use of the information to criminally investigate or prosecute any alcohol or drug abuse patient.[facility] [place]In the event this information is protected by the Federal Confidentiality of Alcohol and Drug Abuse Patient Records regulations: The Federal rules restrict any use of the information to criminally investigate or prosecute any alcohol or drug abuse patient.[facility] [place]In the event this information is protected by the Federal Confidentiality of Alcohol and Drug Abuse Patient Records regulations: The Federal rules restrict any use of the information to criminally investigate or prosecute any alcohol or drug abuse patient.[facility] [place]In the event this information is protected by the Federal Confidentiality of Alcohol and Drug Abuse Patient Records regulations: The Federal rules restrict any use of the information to criminally investigate or prosecute any alcohol or drug abuse patient.[facility] [place]In the event this information is protected by the Federal Confidentiality of Alcohol and Drug Abuse Patient Records regulations: The Federal rules restrict any use of the information to criminally investigate or prosecute any alcohol or drug abuse patient.[facility] [place]In the event this information is protected by the Federal Confidentiality of Alcohol and Drug Abuse Patient Records regulations: The Federal rules restrict any use of the information to criminally investigate or prosecute any alcohol or drug abuse patient.[facility] [place]In the event this information is protected by the Federal Confidentiality of Alcohol and Drug Abuse Patient Records regulations: The Federal rules restrict any use of the information to criminally investigate or prosecute any alcohol or drug abuse patient.[facility] [place]In the event this information is protected by the Federal Confidentiality of Alcohol and Drug Abuse Patient Records regulations: The Federal rules restrict any use of the information to criminally investigate or prosecute any alcohol or drug abuse patient.[facility] [place]In the event this information is protected by the Federal Confidentiality of Alcohol and Drug Abuse Patient Records regulations: The Federal rules restrict any use of the information to criminally investigate or prosecute any alcohol or drug abuse patient.[facility] [place]In the event this information is protected by the Federal Confidentiality of Alcohol and Drug Abuse Patient Records regulations: The Federal rules restrict any use of the information to criminally investigate or prosecute any alcohol or drug abuse patient.[facility] [place]In the event this information is protected by the Federal Confidentiality of Alcohol and Drug Abuse Patient Records regulations: The Federal rules restrict any use of the information to criminally investigate or prosecute any alcohol or drug abuse patient.[facility] [place]In the event this information is protected by the Federal Confidentiality of Alcohol and Drug Abuse Patient Records regulations: The Federal rules restrict any use of the information to criminally investigate or prosecute any alcohol or drug abuse patient.[facility] [place]In the event this information is protected by the Federal Confidentiality of Alcohol and Drug Abuse Patient Records regulations: The Federal rules restrict any use of the information to criminally investigate or prosecute any alcohol or drug abuse patient.[facility] [place]In the event this information is protected by the Federal Confidentiality of Alcohol and Drug Abuse Patient Records regulations: The Federal rules restrict any use of the information to criminally investigate or prosecute any alcohol or drug abuse patient.[facility] [place]In the event this information is protected by the Federal Confidentiality of Alcohol and Drug Abuse Patient Records regulations: The Federal rules restrict any use of the information to criminally investigate or prosecute any alcohol or drug abuse patient.[facility] [place]In the event this information is protected by the Federal Confidentiality of Alcohol and Drug Abuse Patient Records regulations: The Federal rules restrict any use of the information to criminally investigate or prosecute any alcohol or drug abuse patient.[facility] [place]In the event this information is protected by the Federal Confidentiality of Alcohol and Drug Abuse Patient Records regulations: The Federal rules restrict any use of the information to criminally investigate or prosecute any alcohol or drug abuse patient.[facility] [place]In the event this information is protected by the Federal Confidentiality of Alcohol and Drug Abuse Patient Records regulations: The Federal rules restrict any use of the information to criminally investigate or prosecute any alcohol or drug abuse patient.[facility] [place]In the event this information is protected by the Federal Confidentiality of Alcohol and Drug Abuse Patient Records regulations: The Federal rules restrict any use of the information to criminally investigate or prosecute any alcohol or drug abuse patient.[facility] [place]In the event this information is protected by the Federal Confidentiality of Alcohol and Drug Abuse Patient Records regulations: The Federal rules restrict any use of the information to criminally investigate or prosecute any alcohol or drug abuse patient.[facility] [place]In the event this information is protected by the Federal Confidentiality of Alcohol and Drug Abuse Patient Records regulations: The Federal rules restrict any use of the information to criminally investigate or prosecute any alcohol or drug abuse patient.[facility] [place]In the event this information is protected by the Federal Confidentiality of Alcohol and Drug Abuse Patient Records regulations: The Federal rules restrict any use of the information to criminally investigate or prosecute any alcohol or drug abuse patient.[facility] [place]In the event this information is protected by the Federal Confidentiality of Alcohol and Drug Abuse Patient Records regulations: The Federal rules restrict any use of the information to criminally investigate or prosecute any alcohol or drug abuse patient.[facility] [place]In the event this information is protected by the Federal Confidentiality of Alcohol and Drug Abuse Patient Records regulations: The Federal rules restrict any use of the information to criminally investigate or prosecute any alcohol or drug abuse patient.[facility] [place]In the event this information is protected by the Federal Confidentiality of Alcohol and Drug Abuse Patient Records regulations: The Federal rules restrict any use of the information to criminally investigate or prosecute any alcohol or drug abuse patient.[facility] [place]In the event this information is protected by the Federal Confidentiality of Alcohol and Drug Abuse Patient Records regulations: The Federal rules restrict any use of the information to criminally investigate or prosecute any alcohol or drug abuse patient.[facility] [place]In the event this information is protected by the Federal Confidentiality of Alcohol and Drug Abuse Patient Records regulations: The Federal rules restrict any use of the information to criminally investigate or prosecute any alcohol or drug abuse patient.[facility] [place]In the event this information is protected by the Federal Confidentiality of Alcohol and Drug Abuse Patient Records regulations: The Federal rules restrict any use of the information to criminally investigate or prosecute any alcohol or drug abuse patient.[facility] [place]In the event this information is protected by the Federal Confidentiality of Alcohol and Drug Abuse Patient Records regulations: The Federal rules restrict any use of the information to criminally investigate or prosecute any alcohol or drug abuse patient.[facility] [place]In the event this information is protected by the Federal Confidentiality of Alcohol and Drug Abuse Patient Records regulations: The Federal rules restrict any use of the information to criminally investigate or prosecute any alcohol or drug abuse patient.[facility] [place]In the event this information is protected by the Federal Confidentiality of Alcohol and Drug Abuse Patient Records regulations: The Federal rules restrict any use of the information to criminally investigate or prosecute any alcohol or drug abuse patient.[facility] [place]In the event this information is protected by the Federal Confidentiality of Alcohol and Drug Abuse Patient Records regulations: The Federal rules restrict any use of the information to criminally investigate or prosecute any alcohol or drug abuse patient.[facility] [place]In the event this information is protected by the Federal Confidentiality of Alcohol and Drug Abuse Patient Records regulations: The Federal rules restrict any use of the information to criminally investigate or prosecute any alcohol or drug abuse patient.[facility] [place]In the event this information is protected by the Federal Confidentiality of Alcohol and Drug Abuse Patient Records regulations: The Federal rules restrict any use of the information to criminally investigate or prosecute any alcohol or drug abuse patient.[facility] [place]In the event this information is protected by the Federal Confidentiality of Alcohol and Drug Abuse Patient Records regulations: The Federal rules restrict any use of the information to criminally investigate or prosecute any alcohol or drug abuse patient.[facility] [place]In the event this information is protected by the Federal Confidentiality of Alcohol and Drug Abuse Patient Records regulations: The Federal rules restrict any use of the information to criminally investigate or prosecute any alcohol or drug abuse patient.[facility] [place]In the event this information is protected by the Federal Confidentiality of Alcohol and Drug Abuse Patient Records regulations: The Federal rules restrict any use of the information to criminally investigate or prosecute any alcohol or drug abuse patient.[facility] [place]In the event this information is protected by the Federal Confidentiality of Alcohol and Drug Abuse Patient Records regulations: The Federal rules restrict any use of the information to criminally investigate or prosecute any alcohol or drug abuse patient.[facility] [place]In the event this information is protected by the Federal Confidentiality of Alcohol and Drug Abuse Patient Records regulations: The Federal rules restrict any use of the information to criminally investigate or prosecute any alcohol or drug abuse patient.[facility] [place]In the event this information is protected by the Federal Confidentiality of Alcohol and Drug Abuse Patient Records regulations: The Federal rules restrict any use of the information to criminally investigate or prosecute any alcohol or drug abuse patient.[facility] [place]In the event this information is protected by the Federal Confidentiality of Alcohol and Drug Abuse Patient Records regulations: The Federal rules restrict any use of the information to criminally investigate or prosecute any alcohol or drug abuse patient.[facility] [place]In the event this information is protected by the Federal Confidentiality of Alcohol and Drug Abuse Patient Records regulations: The Federal rules restrict any use of the information to criminally investigate or prosecute any alcohol or drug abuse patient.[facility] [place]In the event this information is protected by the Federal Confidentiality of Alcohol and Drug Abuse Patient Records regulations: The Federal rules restrict any use of the information to criminally investigate or prosecute any alcohol or drug abuse patient.[facility] [place]In the event this information is protected by the Federal Confidentiality of Alcohol and Drug Abuse Patient Records regulations: The Federal rules restrict any use of the information to criminally investigate or prosecute any alcohol or drug abuse patient.[facility] [place]In the event this information is protected by the Federal Confidentiality of Alcohol and Drug Abuse Patient Records regulations: The Federal rules restrict any use of the information to criminally investigate or prosecute any alcohol or drug abuse patient.[facility] [place]In the event this information is protected by the Federal Confidentiality of Alcohol and Drug Abuse Patient Records regulations: The Federal rules restrict any use of the information to criminally investigate or prosecute any alcohol or drug abuse patient.[facility] [place]In the event this information is protected by the Federal Confidentiality of Alcohol and Drug Abuse Patient Records regulations: The Federal rules restrict any use of the information to criminally investigate or prosecute any alcohol or drug abuse patient.[facility] [place]In the event this information is protected by the Federal Confidentiality of Alcohol and Drug Abuse Patient Records regulations: The Federal rules restrict any use of the information to criminally investigate or prosecute any alcohol or drug abuse patient.[facility] [place]In the event this information is protected by the Federal Confidentiality of Alcohol and Drug Abuse Patient Records regulations: The Federal rules restrict any use of the information to criminally investigate or prosecute any alcohol or drug abuse patient.[facility] [place]In the event this information is protected by the Federal Confidentiality of Alcohol and Drug Abuse Patient Records regulations: The Federal rules restrict any use of the information to criminally investigate or prosecute any alcohol or drug abuse patient.[facility] [place]In the event this information is protected by the Federal Confidentiality of Alcohol and Drug Abuse Patient Records regulations: The Federal rules restrict any use of the information to criminally investigate or prosecute any alcohol or drug abuse patient.[facility] [place]In the event this information is protected by the Federal Confidentiality of Alcohol and Drug Abuse Patient Records regulations: The Federal rules restrict any use of the information to criminally investigate or prosecute any alcohol or drug abuse patient.[facility] [place]In the event this information is protected by the Federal Confidentiality of Alcohol and Drug Abuse Patient Records regulations: The Federal rules restrict any use of the information to criminally investigate or prosecute any alcohol or drug abuse patient.[facility] [place]In the event this information is protected by the Federal Confidentiality of Alcohol and Drug Abuse Patient Records regulations: The Federal rules restrict any use of the information to criminally investigate or prosecute any alcohol or drug abuse patient.[facility] [place]In the event this information is protected by the Federal Confidentiality of Alcohol and Drug Abuse Patient Records regulations: The Federal rules restrict any use of the information to criminally investigate or prosecute any alcohol or drug abuse patient.[facility] [place]In the event this information is protected by the Federal Confidentiality of Alcohol and Drug Abuse Patient Records regulations: The Federal rules restrict any use of the information to criminally investigate or prosecute any alcohol or drug abuse patient.[facility] [place]In the event this information is protected by the Federal Confidentiality of Alcohol and Drug Abuse Patient Records regulations: The Federal rules restrict any use of the information to criminally investigate or prosecute any alcohol or drug abuse patient.[facility] [place]In the event this information is protected by the Federal Confidentiality of Alcohol and Drug Abuse Patient Records regulations: The Federal rules restrict any use of the information to criminally investigate or prosecute any alcohol or drug abuse patient.[facility] [place]In the event this information is protected by the Federal Confidentiality of Alcohol and Drug Abuse Patient Records regulations: The Federal rules restrict any use of the information to criminally investigate or prosecute any alcohol or drug abuse patient.[facility] [place]In the event this information is protected by the Federal Confidentiality of Alcohol and Drug Abuse Patient Records regulations: The Federal rules restrict any use of the information to criminally investigate or prosecute any alcohol or drug abuse patient.[facility] [place]In the event this information is protected by the Federal Confidentiality of Alcohol and Drug Abuse Patient Records regulations: The Federal rules restrict any use of the information to criminally investigate or prosecute any alcohol or drug abuse patient.[facility] [place]In the event this information is protected by the Federal Confidentiality of Alcohol and Drug Abuse Patient Records regulations: The Federal rules restrict any use of the information to criminally investigate or prosecute any alcohol or drug abuse patient.[facility] [place]In the event this information is protected by the Federal Confidentiality of Alcohol and Drug Abuse Patient Records regulations: The Federal rules restrict any use of the information to criminally investigate or prosecute any alcohol or drug abuse patient.[facility] [place]In the event this information is protected by the Federal Confidentiality of Alcohol and Drug Abuse Patient Records regulations: The Federal rules restrict any use of the information to criminally investigate or prosecute any alcohol or drug abuse patient.[facility] [place]In the event this information is protected by the Federal Confidentiality of Alcohol and Drug Abuse Patient Records regulations: The Federal rules restrict any use of the information to criminally investigate or prosecute any alcohol or drug abuse patient.[facility]In the event this information is protected by the Federal Confidentiality of Alcohol and Drug Abuse Patient Records regulations: The Federal rules restrict any use of the information to criminally investigate or prosecute any alcohol or drug abuse patient.[facility] [place]In the event this information is protected by the Federal Confidentiality of Alcohol and Drug Abuse Patient Records regulations: The Federal rules restrict any use of the information to criminally investigate or prosecute any alcohol or drug abuse patient.[facility] [place]In the event this information is protected by the Federal Confidentiality of Alcohol and Drug Abuse Patient Records regulations: The Federal rules restrict any use of the information to criminally investigate or prosecute any alcohol or drug abuse patient.[facility] [place]In the event this information is protected by the Federal Confidentiality of Alcohol and Drug Abuse Patient Records regulations: The Federal rules restrict any use of the information to criminally investigate or prosecute any alcohol or drug abuse patient.[facility] [place]In the event this information is protected by the Federal Confidentiality of Alcohol and Drug Abuse Patient Records regulations: The Federal rules restrict any use of the information to criminally investigate or prosecute any alcohol or drug abuse patient.[facility] [place]stownIn the event this information is protected by the Federal Confidentiality of Alcohol and Drug Abuse Patient Records regulations: The Federal rules restrict any use of the information to criminally investigate or prosecute any alcohol or drug abuse patient.[facility] [place]In the event this information is protected by the Federal Confidentiality of Alcohol and Drug Abuse Patient Records regulations: The Federal rules restrict any use of the information to criminally investigate or prosecute any alcohol or drug abuse patient.[facility] [place]stownIn the event this information is protected by the Federal Confidentiality of Alcohol and Drug Abuse Patient Records regulations: The Federal rules restrict any use of the information to criminally investigate or prosecute any alcohol or drug abuse patient.[facility] [place]In the event this information is protected by the Federal Confidentiality of Alcohol and Drug Abuse Patient Records regulations: The Federal rules restrict any use of the information to criminally investigate or prosecute any alcohol or drug abuse patient.[facility] [place]In the event this information is protected by the Federal Confidentiality of Alcohol and Drug Abuse Patient Records regulations: The Federal rules restrict any use of the information to criminally investigate or prosecute any alcohol or drug abuse patient.[facility] [place]In the event this information is protected by the Federal Confidentiality of Alcohol and Drug Abuse Patient Records regulations: The Federal rules restrict any use of the information to criminally investigate or prosecute any alcohol or drug abuse patient.[facility] [place]In the event this information is protected by the Federal Confidentiality of Alcohol and Drug Abuse Patient Records regulations: The Federal rules restrict any use of the information to criminally investigate or prosecute any alcohol or drug abuse patient.[facility] [place]In the event this information is protected by the Federal Confidentiality of Alcohol and Drug Abuse Patient Records regulations: The Federal rules restrict any use of the information to criminally investigate or prosecute any alcohol or drug abuse patient.[facility] [place]In the event this information is protected by the Federal Confidentiality of Alcohol and Drug Abuse Patient Records regulations: The Federal rules restrict any use of the information to criminally investigate or prosecute any alcohol or drug abuse patient.[facility] [place]In the event this information is protected by the Federal Confidentiality of Alcohol and Drug Abuse Patient Records regulations: The Federal rules restrict any use of the information to criminally investigate or prosecute any alcohol or drug abuse patient.[facility] [place]stownIn the event this information is protected by the Federal Confidentiality of Alcohol and Drug Abuse Patient Records regulations: The Federal rules restrict any use of the information to criminally investigate or prosecute any alcohol or drug abuse patient.[facility] [place]stownIn the event this information is protected by the Federal Confidentiality of Alcohol and Drug Abuse Patient Records regulations: The Federal rules restrict any use of the information to criminally investigate or prosecute any alcohol or drug abuse patient.[facility] [place]stownIn the event this information is protected by the Federal Confidentiality of Alcohol and Drug Abuse Patient Records regulations: The Federal rules restrict any use of the information to criminally investigate or prosecute any alcohol or drug abuse patient.[facility] [place]stownIn the event this information is protected by the Federal Confidentiality of Alcohol and Drug Abuse Patient Records regulations: The Federal rules restrict any use of the information to criminally investigate or prosecute any alcohol or drug abuse patient.[facility] [place]stownIn the event this information is protected by the Federal Confidentiality of Alcohol and Drug Abuse Patient Records regulations: The Federal rules restrict any use of the information to criminally investigate or prosecute any alcohol or drug abuse patient.[facility] [place]stownIn the event this information is protected by the Federal Confidentiality of Alcohol and Drug Abuse Patient Records regulations: The Federal rules restrict any use of the information to criminally investigate or prosecute any alcohol or drug abuse patient.[facility] [place]stownIn the event this information is protected by the Federal Confidentiality of Alcohol and Drug Abuse Patient Records regulations: The Federal rules restrict any use of the information to criminally investigate or prosecute any alcohol or drug abuse patient.[facility] [place]In the event this information is protected by the Federal Confidentiality of Alcohol and Drug Abuse Patient Records regulations: The Federal rules restrict any use of the information to criminally investigate or prosecute any alcohol or drug abuse patient.[facility] [place]In the event this information is protected by the Federal Confidentiality of Alcohol and Drug Abuse Patient Records regulations: The Federal rules restrict any use of the information to criminally investigate or prosecute any alcohol or drug abuse patient.[facility] [place]stownIn the event this information is protected by the Federal Confidentiality of Alcohol and Drug Abuse Patient Records regulations: The Federal rules restrict any use of the information to criminally investigate or prosecute any alcohol or drug abuse patient.[facility] [place]stownIn the event this information is protected by the Federal Confidentiality of Alcohol and Drug Abuse Patient Records regulations: The Federal rules restrict any use of the information to criminally investigate or prosecute any alcohol or drug abuse patient.[facility] [place]stownIn the event this information is protected by the Federal Confidentiality of Alcohol and Drug Abuse Patient Records regulations: The Federal rules restrict any use of the information to criminally investigate or prosecute any alcohol or drug abuse patient.[facility] [place]stownIn the event this information is protected by the Federal Confidentiality of Alcohol and Drug Abuse Patient Records regulations: The Federal rules restrict any use of the information to criminally investigate or prosecute any alcohol or drug abuse patient.[facility] [place]stownIn the event this information is protected by the Federal Confidentiality of Alcohol and Drug Abuse Patient Records regulations: The Federal rules restrict any use of the information to criminally investigate or prosecute any alcohol or drug abuse patient.[facility] [place]stownIn the event this information is protected by the Federal Confidentiality of Alcohol and Drug Abuse Patient Records regulations: The Federal rules restrict any use of the information to criminally investigate or prosecute any alcohol or drug abuse patient.[facility] [place]stownIn the event this information is protected by the Federal Confidentiality of Alcohol and Drug Abuse Patient Records regulations: The Federal rules restrict any use of the information to criminally investigate or prosecute any alcohol or drug abuse patient.[facility] [place]stownIn the event this information is protected by the Federal Confidentiality of Alcohol and Drug Abuse Patient Records regulations: The Federal rules restrict any use of the information to criminally investigate or prosecute any alcohol or drug abuse patient.[facility] [place]In the event this information is protected by the Federal Confidentiality of Alcohol and Drug Abuse Patient Records regulations: The Federal rules restrict any use of the information to criminally investigate or prosecute any alcohol or drug abuse patient.[facility] [place]In the event this information is protected by the Federal Confidentiality of Alcohol and Drug Abuse Patient Records regulations: The Federal rules restrict any use of the information to criminally investigate or prosecute any alcohol or drug abuse patient.[facility] [place]In the event this information is protected by the Federal Confidentiality of Alcohol and Drug Abuse Patient Records regulations: The Federal rules restrict any use of the information to criminally investigate or prosecute any alcohol or drug abuse patient.[facility] [place]In the event this information is protected by the Federal Confidentiality of Alcohol and Drug Abuse Patient Records regulations: The Federal rules restrict any use of the information to criminally investigate or prosecute any alcohol or drug abuse patient.[facility] [place]stownIn the event this information is protected by the Federal Confidentiality of Alcohol and Drug Abuse Patient Records regulations: The Federal rules restrict any use of the information to criminally investigate or prosecute any alcohol or drug abuse patient.[facility] [place]stownIn the event this information is protected by the Federal Confidentiality of Alcohol and Drug Abuse Patient Records regulations: The Federal rules restrict any use of the information to criminally investigate or prosecute any alcohol or drug abuse patient.[facility] [place]stownIn the event this information is protected by the Federal Confidentiality of Alcohol and Drug Abuse Patient Records regulations: The Federal rules restrict any use of the information to criminally investigate or prosecute any alcohol or drug abuse patient.[facility] [place]stownIn the event this information is protected by the Federal Confidentiality of Alcohol and Drug Abuse Patient Records regulations: The Federal rules restrict any use of the information to criminally investigate or prosecute any alcohol or drug abuse patient.[facility] [place]stownIn the event this information is protected by the Federal Confidentiality of Alcohol and Drug Abuse Patient Records regulations: The Federal rules restrict any use of the information to criminally investigate or prosecute any alcohol or drug abuse patient.[facility] [place]stownIn the event this information is protected by the Federal Confidentiality of Alcohol and Drug Abuse Patient Records regulations: The Federal rules restrict any use of the information to criminally investigate or prosecute any alcohol or drug abuse patient.[facility] [place]stownIn the event this information is protected by the Federal Confidentiality of Alcohol and Drug Abuse Patient Records regulations: The Federal rules restrict any use of the information to criminally investigate or prosecute any alcohol or drug abuse patient.[facility] [place]stownIn the event this information is protected by the Federal Confidentiality of Alcohol and Drug Abuse Patient Records regulations: The Federal rules restrict any use of the information to criminally investigate or prosecute any alcohol or drug abuse patient.[facility] [place]stownIn the event this information is protected by the Federal Confidentiality of Alcohol and Drug Abuse Patient Records regulations: The Federal rules restrict any use of the information to criminally investigate or prosecute any alcohol or drug abuse patient.[facility] [place]In the event this information is protected by the Federal Confidentiality of Alcohol and Drug Abuse Patient Records regulations: The Federal rules restrict any use of the information to criminally investigate or prosecute any alcohol or drug abuse patient.[facility] [place]In the event this information is protected by the Federal Confidentiality of Alcohol and Drug Abuse Patient Records regulations: The Federal rules restrict any use of the information to criminally investigate or prosecute any alcohol or drug abuse patient.[facility] [place]In the event this information is protected by the Federal Confidentiality of Alcohol and Drug Abuse Patient Records regulations: The Federal rules restrict any use of the information to criminally investigate or prosecute any alcohol or drug abuse patient.[facility] [place]In the event this information is protected by the Federal Confidentiality of Alcohol and Drug Abuse Patient Records regulations: The Federal rules restrict any use of the information to criminally investigate or prosecute any alcohol or drug abuse patient.[facility] [place]In the event this information is protected by the Federal Confidentiality of Alcohol and Drug Abuse Patient Records regulations: The Federal rules restrict any use of the information to criminally investigate or prosecute any alcohol or drug abuse patient.[facility] [place]In the event this information is protected by the Federal Confidentiality of Alcohol and Drug Abuse Patient Records regulations: The Federal rules restrict any use of the information to criminally investigate or prosecute any alcohol or drug abuse patient.[facility] [place]In the event this information is protected by the Federal Confidentiality of Alcohol and Drug Abuse Patient Records regulations: The Federal rules restrict any use of the information to criminally investigate or prosecute any alcohol or drug abuse patient.[facility] [place] Reason for Visit (unrecogniz ed section and [...] STEM W/O CONTRAST MATERIAL Stas Mora MD [address] [place] [id number] [place] [id number] Referral ID Status Reason Start Date Expiration Date V isits Requested Visits Authorized [id number] Closed Auto-Generat ed Referral Patient Cleared - [...] anxiety (HCC) Procedures CONSULT TO GERIATRICS OFFICE/OUTPATIENT [facility] 60 MINUTES Stas Mora MD [address] [place] [address] Referral ID Status Reason Start Date Expiration Date V isits Requested Visits Authorized [id number] Closed PCP Requested Referral 04/25/2024 04/25/2025 1 [...] Care Teams (unrecognized sec tion and content) Car Stower Relationship Specialty Start Date End Date Stas Mora MD [address] [place] [id number] PCP - General 08/02/08, Pharmacist [address] [facility] [place] [address] Pharmacist Pharmacy 10/19/19 Car Stower Relationship Specialty Start Date End Date Stas Mora MD [address] [place] [address] PCP - General 08/02/08, Pharmacist [address] [facility] [place] [address] Pharmacist Pharmacy 10/19/19 Car Stower Relationship Specialty Start Date End Date Stas Mora MD [address] [place] [address] PCP - General 08/02/08, Pharmacist [address]26 [facility] [place] [address] Pharmacist Pharmacy 10/19/19 Car Stower Relationship Specialty Start Date End Date Stas Mora MD [address] [place] [address] PCP - General 08/02/08, Pharmacist [address]32 [facility] [place] [address] Pharmacist Pharmacy 10/19/19 Car Stower Relationship Specialty Start Date End Date Stas Mora MD [address] [place] [address] PCP - General 08/02/08, Pharmacist [address] [facility] [place] [address] Pharmacist Pharmacy 10/19/19 Car Stower Relationship Specialty Start Date End Date Stas Mora MD [address] [place] [address] PCP - General 08/02/08, Pharmacist [address] [facility] [place] [address] Pharmacist Pharmacy 10/19/19 Car Stower Relationship Specialty Start Date End Date Stas Mora MD [address] [place] [address] PCP - General 08/02/08, Pharmacist [address] [facility] [place] [address] Pharmacist Pharmacy 10/19/19 Car Stower Relationship Specialty Start Date End Date Stas Mora MD [address] [place] [address] PCP - General 08/02/08, Pharmacist [address] [facility] [place] [address] Pharmacist Pharmacy 10/19/19 Car Stower Relationship Specialty Start Date End Date Stas Mora MD [address] [place] [address] PCP - General 08/02/08, Pharmacist [address] [facility] [address] Pharmacist Pharmacy 10/19/19 Car Stower Relationship Specialty Start Date End Date Stas Mora MD [address] [place] [address] PCP - General 08/02/08, Pharmacist [address] [facility] [place] [address] Pharmacist Pharmacy 10/19/19 Car Stower Relationship Specialty Start Date End Date Stas Mora MD [address] [place] [address] PCP - General 08/02/08, Pharmacist [address] [facility] [place] [address] Pharmacist Pharmacy 10/19/19 Car Stower Relationship Specialty Start Date End Date Stas Mora MD [address] [place] [address] PCP - General 08/02/08, Pharmacist [address] [facility] [place] [address] Pharmacist Pharmacy 10/19/19 Car Stower Relationship Specialty Start Date End Date Stas Mora MD [address] [place] [address] PCP - General 08/02/08, Pharmacist [address]74 [facility] [place] [address] Pharmacist Pharmacy 10/19/19 Car Stower Relationship Specialty Start Date End Date Stas Mora MD [address] [place] [address] PCP - General 08/02/08, Pharmacist [id number] [place] [address], [place] [address] Pharmacist Pharmacy 10/19/19 Car Stower Relationship Specialty Start Date End Date Stas Mora MD [address] [place] [address] PCP - General 08/02/08, Pharmacist 43582 [facility] [place] [address] Pharmacist Pharmacy 10/19/19 Car Stower Relationship Specialty Start Date End Date Stas Mora MD [address] [place] [address] PCP - General 08/02/08, Pharmacist [address]873 [facility] [place] [address] Pharmacist Pharmacy 10/19/19 Car Stower Relationship Specialty Start Date End Date Stas Mora MD [address] [facility] [place] [address] PCP - General 08/02/08, Pharmacist [address] [facility] [place] [address] Pharmacist Pharmacy 10/19/19 Car Stower Relationship Specialty Start Date End Date Stas Mora MD [address] [place] [address] PCP - General 08/02/08, Pharmacist [address] [place] [address] Pharmacist Pharmacy 10/19/19 Car Stower Relationship Specialty Start Date End Date Stas Mora MD [address] [place] [address] PCP - General 08/02/08, Pharmacist [address] [place] [address] Pharmacist Pharmacy 10/19/19 Car Stower Relationship Specialty Start Date End Date Stas Mora MD [address] [place] [address] PCP - General 08/02/08, Pharmacist [address] [place] [address] Pharmacist Pharmacy 10/19/19 Car Stower Relationship Specialty Start Date End Date Stas Mora MD [address] [place] [address] PCP - General 08/02/08, Pharmacist [address] [place] [address] Pharmacist Pharmacy 10/19/19 Team Status: Active Member Role Status Dates Dr. Stas Mora MD Family Provider Active Dr. Stas Mora MD Primary Care Provider Active Team Status: Inactive Member Role Status Dates Dr. Stas Mora MD Primary Care Provider Active Dr. Brian Cunningham , Emergency Provider Active Car Stower Relationship Specialty Start Date End Date Stas Mora MD [address] [place] [address] PCP - General 08/02/08, Pharmacist [address] [place] [address] Pharmacist Pharmacy 10/19/19 Car Stower Relationship Specialty Start Date End Date Stas Mora MD [address] [place] [address] PCP - General 08/02/08, Pharmacist [address] [place] [address] Pharmacist Pharmacy 10/19/19 Car Stower Relationship Specialty Start Date End Date Stas Mora MD [address] [place] [address] PCP - General 08/02/08, Pharmacist [address] [place] [address] Pharmacist Pharmacy 10/19/19 Car Stower Relationship Specialty Start Date End Date Stas Mora MD [address] [place] [address] PCP - General 08/02/08, Pharmacist [address] [place] [address] Pharmacist Pharmacy 10/19/19 Car Stower Relationship Specialty Start Date End Date Stas Mora MD [address] [place] [address] PCP - General 08/02/08, Pharmacist [address] [facility] [address] Pharmacist Pharmacy 10/19/19 Car Stower Relationship Specialty Start Date End Date Stas Mora MD [address] [place] [address] PCP - General 08/02/08, Pharmacist [address] [place] [address] Pharmacist Pharmacy 10/19/19 Car Stower Relationship Specialty Start Date End Date Stas Mora MD [address] [place] [address] PCP - General 08/02/08, Pharmacist [address] [facility] [place] [address] Pharmacist Pharmacy 10/19/19 Car Stower Relationship Specialty Start Date End Date Stas Mora MD [address] [place] [address] PCP - General 08/02/08, Pharmacist [address] [place] [address] Pharmacist Pharmacy 10/19/19 Car Stower Relationship Specialty Start Date End Date Stas Mora MD [address] [place] [address] PCP - General 08/02/08, Pharmacist 19442 [facility] [place] [address] Pharmacist Pharmacy 10/19/19 Car Stower Relationship Specialty Start Date End Date Stas Mora MD [address] [place] [address] PCP - General 08/02/08, Pharmacist [address] [facility] [place] [address] Pharmacist Pharmacy 10/19/19 Car Stower Relationship Specialty Start Date End Date Stas Mora MD [address] [place] [address] PCP - General 08/02/08, Pharmacist [address] [facility] [place] [address] Pharmacist Pharmacy 10/19/19 Car Stower Relationship Specialty Start Date End Date Stas Mora MD [address] [place] [address] PCP - General 08/02/08, Pharmacist [address] [place] [address] Pharmacist Pharmacy 10/19/19 Car Stower Relationship Specialty Start Date End Date Stas Mora MD [address] [place] [address] PCP - General 08/02/08, Pharmacist [id number] [place] [address] Pharmacist Pharmacy 10/19/19 Car Stower Relationship Specialty Start Date End Date tSas Mora MD [address] [place] [address] PCP - General 08/02/08, Pharmacist [id number] [place] [address] Pharmacist Pharmacy 10/19/19 Car Stower Relationship Specialty Start Date End Date Stas Mora MD [address] [place] [address] PCP - General 08/02/08, Pharmacist [address] [place] [address] Pharmacist Pharmacy 10/19/19 Car Stower Relationship Specialty Start Date End Date Stas Mora MD [address] [place] [address] PCP - General 08/02/08, Pharmacist [id number] [place] [address] Pharmacist Pharmacy 10/19/19 Car Stower Relationship Specialty Start Date End Date Stas Mora MD [address] [place] [address] PCP - General 08/02/08, Pharmacist [address] [place] [address] Pharmacist Pharmacy 10/19/19 Car Stower Relationship Specialty Start Date End Date Stas Mora MD [address] [place] [address] PCP - General 08/02/08, Pharmacist [address] [place] [address] Pharmacist Pharmacy 10/19/19 Car Stower Relationship Specialty Start Date End Date Stas Mora MD [address] [place] [address] PCP - General 08/02/08, Pharmacist [address] [place] [address] Pharmacist Pharmacy 10/19/19 Car Stower Relationship Specialty Start Date End Date Stas Mora MD [address] [place] [address] PCP - General 08/02/08, Pharmacist [address] [place] [address] Pharmacist Pharmacy 10/19/19 Car Stower Relationship Specialty Start Date End Date Stas Mora MD [address] [place] [id number] PCP - General 08/02/08, Pharmacist [address] [place] [address] Pharmacist Pharmacy 10/19/19 Car Stower Relationship Specialty Start Date End Date Stas Mora MD [address] [place] [id number] PCP - General 08/02/08, Pharmacist [phone] [facility] [place] [id number] Pharmacist Pharmacy 10/19/19 Jenna Fitzpatrick APRN.FIBERGLASS TECHNICIAN [address] [place] [address] Assembly Operator Family Medicine 02/28/24 Car Stower Relationship Specialty Start Date End Date Stas Mora MD [address] [place] [address] PCP - General 08/02/08, Pharmacist [address] [place] [address] Pharmacist Pharmacy 10/19/19 Jenna Fitzpatrick APRN.FIBERGLASS TECHNICIAN [address] [place] [address] Assembly Operator Family Medicine 02/28/24 Elvis Kearney APRN.FIBERGLASS TECHNICIAN [address] [place] [address] [facility] 03/08/24 Car Stower Relationship Specialty Start Date End Date Stas Mora MD [address] [place] [address] PCP - General 08/02/08, Pharmacist [address] [facility] [place] [address] Pharmacist Pharmacy 10/19/19 Jenna Fitzpatrick APRN.FIBERGLASS TECHNICIAN [address] [place] [address] Assembly Operator Family Medicine 02/28/24 Elvis Kearney APRN.FIBERGLASS TECHNICIAN [address] [place] [address] Assembly Operator Family Medicine 03/08/24 Car Stower Relationship Specialty Start Date End Date Stas Mora MD [address] [place] [address] PCP - General 08/02/08, Pharmacist [address] [place] [address] Pharmacist Pharmacy 10/19/19 Jenna Fitzpatrick, LOAN SERVICING SPECIALIST.FIBERGLASS TECHNICIAN [address] [place] [address] Assembly Operator Family Medicine 02/28/24 Elvis Kearney LOAN SERVICING SPECIALIST.FIBERGLASS TECHNICIAN [address] [place] [address] Assembly Operator Family Medicine 03/08/24 Car Stower Relationship Specialty Start Date End Date Stas Mora MD [address] [place] [address] PCP - General 08/02/08, Pharmacist [address] [place] [address] Pharmacist Pharmacy 10/19/19 Jenna Fitzpatrick, LOAN SERVICING SPECIALIST.FIBERGLASS TECHNICIAN [address] [place] [address] Assembly Operator Family Medicine 02/28/24 Elvis Kearney, LOAN SERVICING SPECIALIST.FIBERGLASS TECHNICIAN [address] [place] [address] Assembly Operator Family Medicine 03/08/24 Car Stower Relationship Specialty Start Date End Date Stas Mora MD [address] [place] [address] PCP - General 08/02/08, Pharmacist [address] [place] [address] Pharmacist Pharmacy 10/19/19 Jenna Fitzpatrick APRN.FIBERGLASS TECHNICIAN [address] [place] [address] Assembly Operator Family Medicine 02/28/24 Elvis Kearney APRN.FIBERGLASS TECHNICIAN [address] [place] [address] Assembly Operator Family Medicine 03/08/24 Car Stower Relationship Specialty Start Date End Date Stas Mora MD [address] [place] [address] PCP - General 08/02/08, Pharmacist [address] [place] [address] Pharmacist Pharmacy 10/19/19 Jenna Fitzpatrick LOAN SERVICING SPECIALIST.FIBERGLASS TECHNICIAN [address] [place] [address] Assembly Operator Family Medicine 02/28/24 Elvis Kearney LOAN SERVICING SPECIALIST.FIBERGLASS TECHNICIAN [address] [place] [address] Assembly Operator Family Medicine 03/08/24 Car Stower Relationship Specialty Start Date End Date Stas Mora MD [address] [place] [address] PCP - General 08/02/08, Pharmacist [address] [place] [address] Pharmacist Pharmacy 10/19/19 Jenna Fitzpatrick APRN.FIBERGLASS TECHNICIAN [address] [place] [address] Assembly Operator Family Medicine 02/28/24 Elvis Kearney APRN.FIBERGLASS TECHNICIAN [address] [place] [address] Assembly Operator Family Medicine 03/08/24 Car Stower Relationship Specialty Start Date End Date Stas Mora MD [address] [place] [address] PCP - General 08/02/08, Pharmacist [address] [place] [address] Pharmacist Pharmacy 10/19/19 Jenna Fitzpatrick APRN.FIBERGLASS TECHNICIAN [address] [place] [address] Assembly Operator [facility] 02/28/24 Elvis Kearney APRN.FIBERGLASS TECHNICIAN [address] [place] [address] Assembly Operator [facility] 03/08/24 Car Stower Relationship Specialty Start Date End Date Stas Mora MD [address] [place] [address] PCP - General 08/02/08, Pharmacist [address] [place] [address] Pharmacist Pharmacy 10/19/19 Jenna Fitzpatrick LOAN SERVICING SPECIALIST.FIBERGLASS TECHNICIAN [address] [place] [address] Assembly Operator Family Medicine 02/28/24 Elvis Kearney APRN.FIBERGLASS TECHNICIAN [address] [place] [address] Assembly Operator Family Medicine 03/08/24 Car Stower Relationship Specialty Start Date End Date Stas Mora MD [address] [place] [address] PCP - General 08/02/08, Pharmacist [address] [facility] [place] [address] Pharmacist Pharmacy 10/19/19 Jenna Fitzpatrick APRN.FIBERGLASS TECHNICIAN [address] [place] [address] Assembly Operator Family Medicine 02/28/24 Elvis Kearney APRN.FIBERGLASS TECHNICIAN [address] [place] [address] Assembly Operator Family Medicine 03/08/24 Car Stower Relationship Specialty Start Date End Date Stas Mora MD [address] [place] [address] PCP - General 08/02/08, Pharmacist [address] [place] [address] Pharmacist Pharmacy 10/19/19 Jenna Fitzpatrick, LOAN SERVICING SPECIALIST.FIBERGLASS TECHNICIAN [address] [place] [address] Assembly Operator Family Medicine 02/28/24 Elvis Kearney LOAN SERVICING SPECIALIST.FIBERGLASS TECHNICIAN [address] [facility] [place] [address] Assembly Operator Family Medicine 03/08/24 Car Stower Relationship Specialty Start Date End Date Stas Mora MD [address] [place] [address] PCP - General 08/02/08, Pharmacist [address] [facility] [place] [address] Pharmacist Pharmacy 10/19/19 Jenna Fitzpatrick APRN.FIBERGLASS TECHNICIAN [address] [place] [address] Assembly Operator [facility] 02/28/24 Elvis Kearney APRN.FIBERGLASS TECHNICIAN [address] [place] [address] Assembly Operator [facility] 03/08/24 Car Stower Relationship Specialty Start Date End Date Stas Mora MD [address] [place] [address] PCP - General 08/02/08, Pharmacist [address] [place] [address] Pharmacist Pharmacy 10/19/19 Jenna Fitzpatrick APRN.FIBERGLASS TECHNICIAN [address] [place] [address] [facility] 02/28/24 Elvis Kearney APRN.FIBERGLASS TECHNICIAN [address] [place] [address] [facility] 03/08/24 Car Stower Relationship Specialty Start Date End Date Stas Mora MD [address] [place] [address] PCP - General 08/02/08, Pharmacist [address] [facility] [place] [address] Pharmacist Pharmacy 10/19/19 Jenna Fitzpatrick APRN.FIBERGLASS TECHNICIAN [address] [place] [address] Assembly Operator [facility] 02/28/24 Elvis Kearney APRN.FIBERGLASS TECHNICIAN [address] [place] [address] Assembly Operator Family Medicine 03/08/24 Car Stower Relationship Specialty Start Date End Date Stas Mora MD [address] [place] [address] PCP - General 08/02/08, Pharmacist [address] [place] [address] Pharmacist Pharmacy 10/19/19 Jenna Fitzpatrick, LOAN SERVICING SPECIALIST.FIBERGLASS TECHNICIAN [address] [place] [address] Assembly Operator Family Medicine 02/28/24 Elvis Kearney LOAN SERVICING SPECIALIST.FIBERGLASS TECHNICIAN [address] [place] [address] Assembly Operator [facility] 03/08/24 Car Stower Relationship Specialty Start Date End Date Stas Mora MD [address] [place] [address] PCP - General 08/02/08, Pharmacist [address] [place] [address] Pharmacist Pharmacy 10/19/19 Jenna Fitzpatrick, LOAN SERVICING SPECIALIST.FIBERGLASS TECHNICIAN [address] [place] [address] Assembly Operator Family Medicine 02/28/24 Elvis Kearney, LOAN SERVICING SPECIALIST.FIBERGLASS TECHNICIAN [address] [place] [address] Assembly Operator [facility] 03/08/24 Car Stower Relationship Specialty Start Date End Date Stas Mora MD [address] [place] [address] PCP - General 08/02/08, Pharmacist [address] [place], [place] [address] Pharmacist Pharmacy 10/19/19 Elvis Kearney APRN.FIBERGLASS TECHNICIAN [address] [place], [place] [address] [facility] 03/08/24 Car Stower Relationship Specialty Start Date End Date Stas Mora MD [address] [place], [place] [address] PCP - General 08/02/08, Pharmacist [address] [place] [address] Pharmacist Pharmacy 10/19/19 Elvis Kearney APRN.FIBERGLASS TECHNICIAN [address] [place] [address] [facility] 03/08/24 Team Status: Active Member Role Status [...] Provider Active Sta rt: September 06, 2024 Car Stower Relationship Specialty Start Date End Date Stas Mora MD [address] [place], [place] [id number] PCP - General 08/02/08 13, Pharmacist [address] [place] [address] Pharmacist Pharmacy 10/19/19 Elvis Kearney APRN.CNP [address] [place], [place] [address] Assembly Operator Family Medicine 03/08/24 Goals (unrecognized section and [...] BE BASED ON THE PRIMARY CLINICAL RECORDS. [facility]. provides no warranty or guarantee of the accuracy or completeness of information in this document.
[2024-10-06 08:00] LABS: INR Fingerstick 2.1
== END ==
LOC: OLS.WHLTSB 05:00
PROVIDERS: PCP Family Medicine; Visit Provider Internal Medicine
DX: I48.91 Unspecified atrial fibrillation (principal)
CPT/HCPCS: 36416; 85610

== ENCOUNTER → 2024-10-31 05:00 | Outpatient (REF) | payer MEDICARE, SELFPAY ==
[2024-10-31 09:02] LABS: INR Fingerstick 1.8
== END ==
LOC: OLS.WHLTSB 05:00
PROVIDERS: PCP Family Medicine; Visit Provider Internal Medicine
DX: M25.851 Other specified joint disorders, right hip (principal); M25.852 Other specified joint disorders, left hip; S70.01XD Contusion of right hip, subsequent encounter; M25.552 Pain in left hip; M62.561 Muscle wasting and atrophy, not elsewhere classified, right lower leg; I48.91 Unspecified atrial fibrillation
CPT/HCPCS: 36416; 85610

== ENCOUNTER → 2024-11-02 05:00 | Outpatient (REF) | payer MEDICARE, SELFPAY ==
--- OUTSIDE RECORDS SUMMARY | 2024-11-02 04:06 | XMS RPT_ITS | CCD ---
Author Organization [facility] Inform ion [facility] Care Team Providers Care Transit Vehicle Inspector Name Role Phone TEE, DARRELL E Unavailable Unavailable TEE, DARRELL E Unavailable Unavailable TEE DARRELL Unavailable Unavailable DARRELL OLIVEIRA Unavailable Unavailable Stas Mora Unavailable Unavailable AISHA OLIVEIRANETH Unavailable Unavailable DARRELL OLIVEIRA Unavailable Unavailable Stas Mora Unavailable Unavailable Stas Mora MD Primary Care Provider 13, Pharmacist Unavailable Stas Mora MD Primary Care Provider 13, Pharmacist Unavailable Stas Mora MD Primary Care Provider [phone] Dr. Stas Mora Primary Care Provider [phone] Dr. Inderjit Gillespie Emergency Provider Dr. Dirk Us Admit Provider Dr. Dirk Us Attending Provider Dr. Dirk Us Other Provider Dr. Spike Preston Attending Provider Dr. Spike Preston Other Provider Stas Mora MD Primary Care Provider [phone] 13, Pharmacist Unavailable PHYSICIAN, NONE Primary Care Physician Unavailab Stas Menjivar MD Primary Care Provider PAYTON IBANEZ DO Attending Unavailable PHYSICIAN, NONE Primary Care Unavailable PHYSICIAN, NONE Primary Care Unavailable STERLING LYNCH DO Attending Unavailable Tannhof SAMPLE CUTTER.GUEST ATTENDANT, Jenna Unavailable Caio SAMPLE CUTTER.GUEST ATTENDANT, Elvis Unavailable GANTA, LUCIANA C Referring Unavailable ELDERBROCK, STAS D Primary Care Unavailable Tannhof SAMPLE CUTTER.GUEST ATTENDANT, Jenna Unavailable Unavail able Tannhof SAMPLE CUTTER.GUEST ATTENDANT, Jenna Unavailable Morgan POLANCO, Dr. Ruiz Primary Care Provider Jose Miguel POLANCO, Dr. Jansen Emergency Provider Priscilla POLANCO, Dr. Kathy Bearden Admit Provider Priscilla POLANCO, Dr. Kathy Bearden Attending Provider Priscilla POLANCO, Dr. Kathy Bearden Other Provider Alberto POLANCO, Dr. Shoemaker Attending Provider Alberto POLANCO, Dr. Shoemaker Other Provider Ever POLANCO, Shayy Attending Provider Unavailrachel Curtis MD, Shayy Referring Provider Unavailrachel Carmona NP-CHalina Attending Provider ELDERBROCK, STAS D Primary Care Unavailable GANTA, LUCIANA Attending Unavailable ELDERBROCK, STAS D Attending Unavailable ELDERBROCK, STAS D Primary Care Unavailable ELDERBROCK, STAS D Referring Unavailable ELDERBROCK, STAS D Primary Care Unavailable GANTA, LUCIANA Attending Unavailable ELDERBROCK, STAS D Primary Care Unavailable ELDERBROCK, STAS D Primary Care Unavailable ELDERBROCK, STAS D Referring Unavailable ELDERBROCK, STAS D Primary Care Unavailable ELDERBROCK, STAS D Referring Unavailable ELDERBROCK, STAS D Referring Unavailable [...] STAS D Referring Unavailable ELDERBROCK, STAS D Referring Unavailable GANTA, LUCIANA Attending Unavailable ELDERBROCK, STAS D Primary Care Unavailable ELDERAYUSHCKSTAS Primary Care Unavailable ELDERBROCKSTAS Referring Unavailable ELDERBROCK, STAS Trejo Referring Unavailable ELDERBROCK, STAS Trejo Primary Care Unavailable ELDERSTAS GUTIERREZ Attending Unavailable ELDERAYUSHCKSTAS Primary Care Unavailable ELDERBROCK, STAS Trejo Primary Care Unavailable ELDERAYUSHCK, STAS Trejo Referring Unavailable ELDERBROCK, STAS Trejo Primary Care Unavailable ELDERBROCK, STAS Trejo Referring Unavailable ELDERBROCKSTAS Attending Unavailable ELDERSTAS GUTIERREZ Primary Care Unavailable ELDERSTAS GUTIERREZ Referring Unavailable ELDERBROCK, STAS Trejo Primary Care Unavailable GANLUCIANA BAILEY Referring Unavailable ELDERBROCKSTAS Primary Care Unavailable Oleghe OLS, Efewongbe Attending Unavailabl e Elderbrock, Stas Primary Care Unavailable Oleghe OLS, Efewongbe Attending Unavailabl e Elderbrock, Stas Primary Care Unavailable Koram, Kathy Monisha Attending Unavailable Koram, Kathy Monisha Consulting Unavailable Elderbrock, Stas Primary Care Unavailable Koram, Kathy Monisha Admitting Unavailable Koram, Kathy Monisha Attending Unavailable Koram, Kathy Monisha Consulting Unavailable Elderbrock, Stas Primary Care Unavailable Koram, Kathy Monisha Admitting Unavailable Oleghe OLS, Efewongbe Attending Unavailabl e Elderbrock, Stas Primary Care Unavailable Koram, Kathy Monisha Consulting Unavailable Elderbrock, Stas Primary Care Unavailable Alberto, Navid Attending Unavailable Koram, Kathy Monisha Admitting Unavailable Oleghe OLS, Efewongbe Referring Unavailabl e Oleghe OLS, Efewongbe Attending Unavailabl e Elderbrock, Stas Primary Care Unavailable Oleghe OLS, Efewongbe Attending Unavailabl e Elderbrock, Stas Primary Care Unavailable Oleghe OLS, Efewongbe Attending Unavailabl e Elderbrock, Stas Primary Care Unavailable Oleghe OLS, Efewongbe Attending Unavailabl e Elderbrock, Stas Primary Care Unavailable Elderbrock, Stas Primary Care Unavailable Oleghe OLS, Efewongbe Attending Unavailabl e Oleghe OLS, Efewongbe Attending Unavailabl e Elderbrock, Stas Primary Care Unavailable Alberto, Navid Attending Unavailable Alberto, Navid Consulting Unavailable Kristine INGOT PASSER, Halina Attending Unavailable Elderbrock, Stas Primary Care Unavailable Kristine INGOT PASSER, Halina Attending Unavailable Elderbrock, Stas Primary Care Unavailable Oleghe OLS, Efewongbe Attending Unavailabl e Elderbrock, Stas Primary Care Unavailable Shayy Spencer Attending Stas Macario Primary Care Unavailable Shayy Spencer Attending Stas Macario Primary Care Unavailable Shayy Spencer Attending Stas Macario Primary Care Unavailable Shayy Spencer Attending Stas Macario Primary Care Unavailable Medications Current Medications Medication Drug Class(es) Dates Sig (Normalized) Sig (Original) atorvastatin 40 mg oral tablet (20 sources) HMG-CoA Reductase Inhibitor Start: 12-22-2021 End: 05-26-2024 take 1 tablet by mouth at bedtime Atorvastatin 40 mg Tablet Active 40 mg PO AT BEDTIME December 22, 2021 12:00am Start: 07-16-2021 End: 07-17-2021 take 1 tablet [...] unspecified vessel or lesion type, unspecified whether [place] or transplanted heart Take 1 tablet by [...] take 1 tablet by mouth once daily Lisinopril 10 mg tablet Active 10 mg PO DAILY December 22, 2021 12:00am Comment on above: Take by mouth. [facility] memantine hydrochloride 10 mg oral tablet (16 sources) W-qkuxep-W-aspartate Receptor Antagonist Start: 06-02-19 End: 11-29-19 take 1 tablet by mouth twice daily Memantine 10 mg tablet Active 10 mg PO TWICE A DAY September 01, 2024 12:00am metoprolol tartrate 50 mg oral tablet (1 source) beta-Adrenergic Jazmin Start: 01-02-20 Lopressor 50 mg oral tablet Dose : 25 mg = 0.5 tab(s), PO, BID, 0 Refill(s), current med (Hx) Start Date: 01/01/06 Status: Ordered polyethylene glycol 3350 36751 mg powder for oral solution (5 sources) Osmotic Laxative Start: 09-07-19 Polyethylene Glycol 3350 (Miralax) 17 gram/dose powder Active 17 g PO DAILY 510 30 0 September 06, 2024 12:00am 24 hr rivastigmine 0.192 mg/hr transdermal system (10 sources) Start: 09-02-19 Rivastigmine 4.6 mg/24 hour [...] on above: Take 1 capsule by mo [facility] daily at bedtime. vardenafil 10 mg [...] mg tablet Active 2 mg PO .evening 30 0 September 06, 2024 12:00am Hold if INR [...] 3 06/23/2022 Active Start: 10-06-2017 End: 09-06-2024 take 1 tablet by mouth once daily Warfarin 2.5 MG tablet Discontinued 2.5 mg PO DAILY October 06, 2017 12:00am September 06, 2024 11:11am blood thinner Comment on above: 5 mg every Mon, [...] Tablet,Chewable Discontinued 81 mg PO WITH BREAKFAST 30 0 December 22, 2021 12:00am September 01, 2024 [...] disease (20 sources) Atherosclerotic heart disease of [place] coronary artery without angina pectoris; Translations: [Coronary atherosclerosis] Onset: 10-07-2005 06-26-2017 Chronic Delirium, dementia, and amnestic and other cognitive disorders (16 sources) Vascular dementia ; Translations: [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, psychotic disturbance, mood disturbance, or anxiety (HCC)] Onset: 04-27-2024 08-14-2023 Chronic Diabetes mellitus without complication (9 sources) Hyperglycemia; Translations: [Hyperglycemia, unspecified] 02-19-2021 Episodic Disorders of lipid metabolism (20 sources) Dyslipidemia; Translations: [Hyperlipidemia, unspecified] Onset: 08-26-2022 Chronic E Codes: Fall (13 sources) Fall; Translations: [Unspecified fall, initial encounter] Onset: 09-06-2024 09-01-2024 Episodic Essential hypertension (20 sources) Benign essential hypertension; Translations: [Essential (primary) hypertension] Onset: 10-07-2005 10-07-2005 Chronic Fluid and electrolyte disorders (9 sources) Lactic acidosis; Translations: [Acidosis] 02-19-2021 Episodic Genitourinary symptoms and ill-defined conditions (1 source) Increased frequency of urination; Translations: [Frequency of micturition] 11-26-2023 Episodic Late effects of cerebrovascular disease (3 sources) Sequela of cerebrovascular accident; Translations: [Unspecified sequelae of cerebral infarction] 06-01-2023 Chronic Malaise and fatigue (8 sources) Asthenia; Translations: [Weakness] 02-10-2023 Episodic Open wounds of head; neck; and trunk (1 source) Laceration of head; Translations: [Laceration without foreign body of other part of head, initial encounter] Onset: 11-17-2022 Episodic Osteoarthritis (20 sources) Localized, primary osteoarthritis; Translations: [Unilateral primary osteoarthritis, unspecified knee] Onset: 10-07-2005 10-07-2005 Chronic Other aftercare (20 sources) Long-term current use of anticoagulant; Translations: [donor specialist (current) 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] Onset: 09-22-2016 Episodic Other aftercare (4 sources) Patient encounter status; Translations: [Encounter for therapeutic drug level monitoring] Episodic Other aftercare (1 source) Post-discharge follow-up; Translations: [Encounter for follow-up examination after completed treatment for conditions other than malignant neoplasm] Episodic Other circulatory disease (12 sources) H/O: atrial fibrillation; Translations: [Personal history of other diseases of the circulatory system] 09-01-2024 Episodic Other circulatory disease (12 sources) History of transient ischemic attack; Translations: [...] musculoskeletal systems] Episodic Other connective tissue disease (1 source) Muscle wasting and atrophy, not elsewhere classified, right lower leg; Translations: [Muscle wasting and atrophy, not elsewhere classified, right lower leg] Onset: 10-12-2024 Episodic Other hereditary and degenerative nervous system [...] parkinsonism] 06-01-2024 Chronic Other nervous system disorders (12 sources) Unable to walk; Translations: [Difficulty in walking, not elsewhere classified] 09-01-2024 Chronic Other nervous system disorders (1 source) [...] [Pain in left hip] 05-21-2022 Episodic Other non-traumatic joint disorders (1 source) Pain in left hip; Translations: [Pain in left hip] Onset: 10-19-2024 Episodic Other non-traumatic joint disorders (1 source) Other specified joint disorders, right hip; Translations: [Other specified joint disorders, right hip] Onset: 10-19-2024 Episodic Other non-traumatic joint disorders (1 source) Other specified joint disorders, left hip; Translations: [Other specified joint disorders, left hip] Onset: 10-19-2024 Episodic Other non-traumatic joint disorders (1 source) Pain in right hip; Translations: [Pain in right hip] Onset: 10-19-2024 Episodic Other non-traumatic joint disorders (1 source) Pain in unspecified shoulder; Translations: [Pain in unspecified shoulder] Onset: 10-12-2024 Episodic Other nutritional; endocrine; and metabolic disorders (12 sources) Adult failure to thrive syndrome; Translations: [Adult failure to thrive] 09-01-2024 Episodic Other nutritional; endocrine; and metabolic disorders (1 source) Adult failure to thrive; Translations: [Adult failure to thrive] Onset: 09-06-2024 Episodic Pneumonia (except that caused by tuberculosis or sexually transmitted disease) (9 sources) Community acquired pneumonia; Translations: [Pneumonia, unspecified organism] 02-10-2021 Episodic Residual codes; unclassified (3 sources) Bilateral lower leg edema; Translations: [Localized edema] 09-15-2023 Episodic Residual codes; unclassified (1 source) Hallucinations; Translations: [Hallucinations, unspecified] 08-31-2024 Episodic Screening and history of mental health and substance abuse codes (14 sources) H/O: dementia; Translations: [Personal history of other mental and behavioral disorders] Onset: 08-31-2024 09-01-2024 Episodic Spondylosis; intervertebral disc disorders; other back problems (1 source) Acute low back pain; Translations: [Acute right-sided low back pain, unspecified whether sciatica present] 03-12-2020 Episodic Superficial injury; contusion (20 sources) Contusion of hip; Translations: [Contusion of unspecified hip, initial encounter] Onset: 09-06-2024 09-01-2024 Episodic Syncope (9 sources) Syncope; Translations: [Syncope and collapse] 09-08-2016 Episodic Thyroid disorders (1 source) Thyroid nodule; Translations: [Nontoxic single thyroid nodule] Chronic Transient cerebral ischemia (12 sources) Transient cerebral ischemia; Translations: [Transient cerebral [...] system] Onset: 04-24-2011 04-24-2011 Episodic Other aftercare (3 sources) snf (current) 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; Translations: [Long-term (current) 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] Onset: 07-19-2018 Episodic Other connective tissue disease (2 sources) Other bursitis of elbow, right elbow; Translations: [Olecranon bursitis] Onset: 07-28-2024 07-28-2024 Episodic Other nervous system disorders (1 source) [...] Test Name Value Interpretation Reference Range Facility International normalized rat io (INR) measurement by fingerstickOrdered By: Shayy Curtis on 10-31-2024 INR Coag (BldC) [Relative time] 1.8 [facility] Comment on above: Critical Value > 4.0 Whole blood prothrombin time Ordered By: Shayy Crutis on 10-31-2024 PT Coag (Bld) [Time] 20.2 s High 11.7-14.9 [facility] International normalized rat io (INR) measurement by fingerstickOrdered By: Shayy Curtis on 10-06-2024 INR Coag (BldC) [Relative time] 2.1 [facility] Comment on above: Critical Value > 4.0 Whole blood prothrombin time Ordered By: Shayy Curtis on 10-06-2024 PT Coag (Bld) [Time] 22.6 s High 11.7-14.9 [facility] Absolute lymphocyte countOrd ered By: Shayy Curtis on 10-05-2024 Lymphocytes Auto (Unsp spec) [#/Vol] 1.54 10*3/uL 0.83-4.51 [facility] Absolute neutrophil countOrd ered By: Shayy Curtis on 10-05-2024 Neutrophils (Bld) [#/Vol] 4.2 10*3/uL 2.0-7.7 [facility] Anion gap in Serum or Plasma Ordered By: Shayy Curtis on 10-05-2024 Anion gap [Moles/Vol] 10 mmol/L 5-15 [facility] Automated lymphocyte count a s percentage of total leukocytesOrdered By: Shayy Curtis on 10-05-2024 Lymphocytes/100 WBC Auto (Unsp spec) 23.8 % 19-41 [facility] BUN/creatinine ratioOrdered By: Hunghollierobsonirlanda Salazartomyradha on 10-05-2024 Urea nitrogen/Creatinine [Mass ratio] 18.2 mg/mg 10-20 [facility] Basophil percentageOrdered B y: Shayy Martintomyradha on 10-05-2024 Basophils/100 WBC (Bld) 0.6 % 0-1 [facility] Carbon dioxide, total [Moles /volume] in Central venous bloodOrdered By: [facility] Curtis on 10-05-2024 CO2 [Moles/Vol] 24.6 mmol/L 21.0-32.0 [facility] Chloride assayOrdered By: Hung holliechampionirlanda Curtis on 10-05-2024 Chloride [Moles/Vol] 106 mmol/L 98-108 [facility] Eosinophil percentageOrdered By: holliechampionirlanda Salazartomyradha on 10-05-2024 Eosinophils/100 WBC (Bld) 1.9 % 0-5 [facility] Erythrocyte distribution wid th ratioOrdered By: [facility] Martintomyradha on 10-05-2024 Erythrocyte distribution width (RBC) [Ratio] 18.2 % High 11.6-14.6 [facility] Erythrocyte distribution wid th standard deviationOrdered By: [facility] Martintomyradha on 10-05-2024 Erythrocyte distribution width (RBC) [Ratio] 52.4 fl High 35.1-43.9 [facility] Glomerular filtration rate ( GFR) estimation/1.73 sq m using serum, plasma, or whole bOrdered By: baldomero Salazartomyradha on 10-05-2024 GFR/1.73 sq M.predicted among non-blacks MDRD (S/P/Bld) [Vol rate/Area] 87 mL/min/{1.73_m2} >60 [facility] Comment on above: mL/min/1.73m2 CKD-EP I Creatinine Equation (2020) Hematocrit Auto (Bld) [Volum e fraction]Ordered By: Shayy Curtis on 10-05-2024 Hematocrit (Bld) [Volume fraction] 35.0 % Low 40-54 [facility] Hemoglobin measurementOrdere d By: Shayy Curtis on 10-05-2024 Hemoglobin (Bld) [Mass/Vol] 11.0 g/dL Low 13.0-16.5 [facility] Immature granulocytes/100 WB C Auto (Bld)Ordered By: Shayy Curtis on 10-05-2024 Immature granulocytes/100 WBC (Bld) 0.300 % 0.0-0.9 [facility] Comment on above: IG% - Immature Granu locytes (promyelocytes, myelocytes and metamyelocytes) > 1% indicates that a LEFT SHIFT is Present. MCV (mean corpuscular volume ) determinationOrdered By: Shayy Curtis on 10-05-2024 MCV (RBC) [Entitic vol] 78.8 fL Low 80-94 [facility] Mean corpuscular hemoglobin (MCH) determinationOrdered By: holliechampionirlanda Curtis on 10-05-2024 MCH (RBC) [Entitic mass] 24.8 pg Low 27.0-32.0 [facility] Mean corpuscular hemoglobin concentration (MCHC) determinationOrdered By: baldomero Curtis on 10-05-2024 MCHC (RBC) [Mass/Vol] 31.4 g/dL Low 32-36 [facility] Mean platelet volume determi nationOrdered By: Shayy Curtis on 10-05-2024 Platelet mean volume (Bld) [Entitic vol] 10.3 fL 6.2-12.0 [facility] Monocyte percentageOrdered B y: Shayy Curtis on 10-05-2024 Monocytes/100 WBC (Bld) 8.5 % 0-10 [facility] Neutrophil percentageOrdered By: baldomero Curtis on 10-05-2024 Neutrophils/100 WBC (Bld) 64.9 % 47-70 [facility] Nucleated red blood cell per centageOrdered By: Shayy Curtis on 10-05-2024 Nucleated RBC/100 WBC (Bld) [Ratio] 0 % 0-5 [facility] Platelet countOrdered By: Hung Curtis on 10-05-2024 Platelets (Bld) [#/Vol] 235 10*3/uL 150-450 [facility] Potassium measurement (mass/ volume)Ordered By: Shayy Curtis on 10-05-2024 Potassium (Unsp spec) [Mass/Vol] 4.1 mmol/L 3.3-5.1 [facility] RBC Auto (Bld) [#/Vol]Ordere d By: Shayy Curtis on 10-05-2024 RBC (Bld) [#/Vol] 4.44 10*6/uL Low 4.6-6.2 [facility] Serum creatinine measurement (mass/volume)Ordered By: Shayy Curtis on 10-05-2024 Creatinine [Mass/Vol] 0.73 mg/dL 0.70-1.20 [facility] Serum glucose measurement (m ass/volume)Ordered By: Shayy Curtis on 10-05-2024 Glucose [Mass/Vol] 90 mg/dL 70-99 [facility] Serum or plasma calcium alvaro urement (mass/volume)Ordered By: Shayy Curtis on 10-05-2024 Calcium [Mass/Vol] 8.7 mg/dL 7.6-11.0 [facility] Serum or plasma urea nitroge n measurement (mass/volume)Ordered By: Shayy Curtis on 10-05-2024 Urea nitrogen [Mass/Vol] 13 mg/dL 4-19 [facility] Sodium levelOrdered By: Latrice simonmaira Ever on 10-05-2024 Sodium [Moles/Vol] 140 mmol/L 133-145 [facility] White blood cell (WBC) count Ordered By: Shayy Curtis on 10-05-2024 WBC (Bld) [#/Vol] 6.5 10*3/uL 4.4-11.0 [facility] International normalized rat io (INR) calculationOrdered By: Shayy Curtis on 09-29-2024 INR Coag (Bld) [Relative time] 3.3 {INR} [facility] Prothrombin timeOrdered By: Shayy Curtis on 09-29-2024 PT Coag (PPP) [Time] 34.4 s High 11.7-14.9 [facility] Absolute lymphocyte countOrd ered By: Latricerobsonirlanda Salazartomyradha on 09-28-2024 Lymphocytes Auto (Unsp spec) [#/Vol] 1.41 10*3/uL 0.83-4.51 [facility] Absolute neutrophil countOrd ered By: Shayy Salazartomyradha on 09-28-2024 Neutrophils (Bld) [#/Vol] 4.8 10*3/uL 2.0-7.7 [facility] Anion gap in Serum or Plasma Ordered By: Shayy Curtis on 09-28-2024 Anion gap [Moles/Vol] 13 mmol/L 5-15 [facility] Automated lymphocyte count a s percentage of total leukocytesOrdered By: Shayy Curtis on 09-28-2024 Lymphocytes/100 WBC Auto (Unsp spec) 20.1 % 19-41 [facility] BUN/creatinine ratioOrdered By: holilechampionirlanda Curtis on 09-28-2024 Urea nitrogen/Creatinine [Mass ratio] 19.9 mg/mg 10-20 [facility] Basophil percentageOrdered B y: Latricerobsonirlanda Salazartomyradha on 09-28-2024 Basophils/100 WBC (Bld) 0.6 % 0-1 [facility] Carbon dioxide, total [Moles /volume] in Central venous bloodOrdered By: Shayy Curtis on 09-28-2024 CO2 [Moles/Vol] 21.1 mmol/L 21.0-32.0 [facility] Chloride assayOrdered By: Hung Curtis on 09-28-2024 Chloride [Moles/Vol] 105 mmol/L 98-108 [facility] Eosinophil percentageOrdered By: baldomero Curtis on 09-28-2024 Eosinophils/100 WBC (Bld) 2.0 % 0-5 [facility] Erythrocyte distribution wid th ratioOrdered By: Shayy Curtis on 09-28-2024 Erythrocyte distribution width (RBC) [Ratio] 18.3 % High 11.6-14.6 [facility] Erythrocyte distribution wid th standard deviationOrdered By: Shayy Curtis on 09-28-2024 Erythrocyte distribution width (RBC) [Ratio] 52.8 fl High 35.1-43.9 [facility] Glomerular filtration rate ( GFR) estimation/1.73 sq m using serum, plasma, or whole bOrdered By: Shayy Curtis on 09-28-2024 GFR/1.73 sq M.predicted among non-blacks MDRD (S/P/Bld) [Vol rate/Area] 88 mL/min/{1.73_m2} >60 [facility] Comment on above: mL/min/1.73m2 CKD-EP I Creatinine Equation (2020) Hematocrit Auto (Bld) [Volum e fraction]Ordered By: [facility] on 09-28-2024 Hematocrit (Bld) [Volume fraction] 37.0 % Low 40-54 [facility] Hemoglobin measurementOrdere d By: Shayy Curtis on 09-28-2024 Hemoglobin (Bld) [Mass/Vol] 11.5 g/dL Low 13.0-16.5 [facility] Immature granulocytes/100 WB C Auto (Bld)Ordered By: holliechampionirlanda Curtis on 09-28-2024 Immature granulocytes/100 WBC (Bld) 0.300 % 0.0-0.9 [facility] Comment on above: IG% - Immature Granu locytes (promyelocytes, myelocytes and metamyelocytes) > 1% indicates that a LEFT SHIFT is Present. MCV (mean corpuscular volume ) determinationOrdered By: Shayy Curtis on 09-28-2024 MCV (RBC) [Entitic vol] 80.3 fL 80-94 [facility] Mean corpuscular hemoglobin (MCH) determinationOrdered By: baldomero Curtis on 09-28-2024 MCH (RBC) [Entitic mass] 24.9 pg Low 27.0-32.0 [facility] Mean corpuscular hemoglobin concentration (MCHC) determinationOrdered By: holliechampionirlanda Curtis 09-28-2024 MCHC (RBC) [Mass/Vol] 31.1 g/dL Low 32-36 [facility] Mean platelet volume determi nationOrdered By: baldomero Curtis 09-28-2024 Platelet mean volume (Bld) [Entitic vol] 10.5 fL 6.2-12.0 [facility] Monocyte percentageOrdered B y: Shayy Salazartomyradha on 09-28-2024 Monocytes/100 WBC (Bld) 8.8 % 0-10 [facility] Neutrophil percentageOrdered By: Shayy Curtis on 09-28-2024 Neutrophils/100 WBC (Bld) 68.2 % 47-70 [facility] Nucleated red blood cell per centageOrdered By: Shayy Curtis on 09-28-2024 Nucleated RBC/100 WBC (Bld) [Ratio] 0 % 0-5 [facility] Platelet countOrdered By: Hung Curtis on 09-28-2024 Platelets (Bld) [#/Vol] 280 10*3/uL 150-450 [facility] Potassium measurement (mass/ volume)Ordered By: Shayy Curtis on 09-28-2024 Potassium (Unsp spec) [Mass/Vol] 4.0 mmol/L 3.3-5.1 [facility] RBC Auto (Bld) [#/Vol]Ordere d By: Shayy Curtis on 09-28-2024 RBC (Bld) [#/Vol] 4.61 10*6/uL 4.6-6.2 [facility] Serum creatinine measurement (mass/volume)Ordered By: Shayy Curtis on 09-28-2024 Creatinine [Mass/Vol] 0.71 mg/dL 0.70-1.20 [facility] Serum glucose measurement (m ass/volume)Ordered By: Shayy Curtis on 09-28-2024 Glucose [Mass/Vol] 91 mg/dL 70-99 [facility] Serum or plasma calcium alvaro urement (mass/volume)Ordered By: Shayy Curtis on 09-28-2024 Calcium [Mass/Vol] 8.9 mg/dL 7.6-11.0 [facility] Serum or plasma urea nitroge n measurement (mass/volume)Ordered By: Shayy Curtis on 09-28-2024 Urea nitrogen [Mass/Vol] 14 mg/dL 4-19 [facility] Sodium levelOrdered By: Latrice Curtis on 09-28-2024 Sodium [Moles/Vol] 140 mmol/L 133-145 [facility] White blood cell (WBC) count Ordered By: Shayy Curtis on 09-28-2024 WBC (Bld) [#/Vol] 7.0 10*3/uL 4.4-11.0 [facility] International normalized rat io (INR) measurement by fingerstickOrdered By: Shayy Curtis on 09-26-2024 INR Coag (BldC) [Relative time] 2.5 [facility] Comment on above: Critical Value > 4.0 Whole blood prothrombin time Ordered By: Shayy Curtis on 09-26-2024 PT Coag (Bld) [Time] 27.1 s High 11.7-14.9 [facility] International normalized rat io (INR) calculationOrdered By: Shayy Curtis on 09-23-2024 INR Coag (Bld) [Relative time] 2.0 {INR} [facility] Prothrombin timeOrdered By: Shayy Curtis on 09-23-2024 PT Coag (PPP) [Time] 23.5 s High 11.7-14.9 [facility] Absolute lymphocyte countOrd ered By: Shayy Curtis on 09-21-2024 Lymphocytes Auto (Unsp spec) [#/Vol] 1.35 10*3/uL 0.83-4.51 [facility] Absolute neutrophil countOrd ered By: Shayy Curtis on 09-21-2024 Neutrophils (Bld) [#/Vol] 4.3 10*3/uL 2.0-7.7 [facility] Anion gap in Serum or Plasma Ordered By: Shayy Curtis on 09-21-2024 Anion gap [Moles/Vol] 12 mmol/L 5-15 [facility] Automated lymphocyte count a s percentage of total leukocytesOrdered By: Shayy Curtis on 09-21-2024 Lymphocytes/100 WBC Auto (Unsp spec) 21.5 % 19-41 [facility] BUN/creatinine ratioOrdered By: Shayy Curtis on 09-21-2024 Urea nitrogen/Creatinine [Mass ratio] 15.8 mg/mg 10-20 [facility] Basophil percentageOrdered B y: Shayy Curtis on 09-21-2024 Basophils/100 WBC (Bld) 0.8 % 0-1 [facility] CNPNon 09-21-2024 CNPN Telephone (FAMWS) ROBY FLORES ([id number]) 1935 M Date Time Provider Department 09/21/24 [facility] During your visit today, we recorded the following information about you: Ruthannzenaida Petty 09/21/2024 9:[address] [facility] for [facility]. 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 Encounter Status:Closed by MARTA PALACIO on 09/22/24 Normal [facility] Carbon dioxide, total [Moles /volume] in Central venous bloodOrdered By: Shayy Curtis on 09-21-2024 CO2 [Moles/Vol] 23.2 mmol/L 21.0-32.0 [facility] Chloride assayOrdered By: Hung Curtis on 09-21-2024 Chloride [Moles/Vol] 104 mmol/L 98-108 [facility] Eosinophil percentageOrdered By: Shayy Curtis on 09-21-2024 Eosinophils/100 WBC (Bld) 1.3 % 0-5 [facility] Erythrocyte distribution wid th ratioOrdered By: Shayy Curtis on 09-21-2024 Erythrocyte distribution width (RBC) [Ratio] 18.0 % High 11.6-14.6 [facility] Erythrocyte distribution wid th standard deviationOrdered By: Shayy Curtis on 09-21-2024 Erythrocyte distribution width (RBC) [Ratio] 50.8 fl High 35.1-43.9 [facility] Glomerular filtration rate ( GFR) estimation/1.73 sq m using serum, plasma, or whole bOrdered By: Shayy Curtis on 09-21-2024 GFR/1.73 sq M.predicted among non-blacks MDRD (S/P/Bld) [Vol rate/Area] 88 mL/min/{1.73_m2} >60 [facility] Comment on above: mL/min/1.73m2 CKD-EP I Creatinine Equation (2020) Hematocrit Auto (Bld) [Volum e fraction]Ordered By: Shayy Curtis on 09-21-2024 Hematocrit (Bld) [Volume fraction] 37.5 % Low 40-54 [facility] Hemoglobin measurementOrdere d By: Shayy Curtis on 09-21-2024 Hemoglobin (Bld) [Mass/Vol] 11.6 g/dL Low 13.0-16.5 [facility] Immature granulocytes/100 WB C Auto (Bld)Ordered By: Shayy Curtis on 09-21-2024 Immature granulocytes/100 WBC (Bld) 0.300 % 0.0-0.9 [facility] Comment on above: IG% - Immature Granu locytes (promyelocytes, myelocytes and metamyelocytes) > 1% indicates that a LEFT SHIFT is Present. International normalized rat io (INR) calculationOrdered By: Shayy Curtis on 09-21-2024 INR Coag (Bld) [Relative time] 1.7 {INR} [facility] MCV (mean corpuscular volume ) determinationOrdered By: Shayy Curtis on 09-21-2024 MCV (RBC) [Entitic vol] 78.9 fL Low 80-94 [facility] Mean corpuscular hemoglobin (MCH) determinationOrdered By: holliechampionirlanda Curtis on 09-21-2024 MCH (RBC) [Entitic mass] 24.4 pg Low 27.0-32.0 [facility] Mean corpuscular hemoglobin concentration (MCHC) determinationOrdered By: baldomero Curtis on 09-21-2024 MCHC (RBC) [Mass/Vol] 30.9 g/dL Low 32-36 [facility] Mean platelet volume determi nationOrdered By: holliechampionirlanda Curtis on 09-21-2024 Platelet mean volume (Bld) [Entitic vol] 10.1 fL 6.2-12.0 [facility] Monocyte percentageOrdered B y: Shayy Curtis on 09-21-2024 Monocytes/100 WBC (Bld) 8.1 % 0-10 [facility] Neutrophil percentageOrdered By: Shayy Curtis on 09-21-2024 Neutrophils/100 WBC (Bld) 68.0 % 47-70 [facility] Nucleated red blood cell per centageOrdered By: Shayy Curtis on 09-21-2024 Nucleated RBC/100 WBC (Bld) [Ratio] 0 % 0-5 [facility] Platelet countOrdered By: Hung Curtis on 09-21-2024 Platelets (Bld) [#/Vol] 318 10*3/uL 150-450 [facility] Potassium measurement (mass/ volume)Ordered By: Shayy Curtis on 09-21-2024 Potassium (Unsp spec) [Mass/Vol] 4.0 mmol/L 3.3-5.1 [facility] Prothrombin timeOrdered By: Shayy Curtis on 09-21-2024 PT Coag (PPP) [Time] 20.6 s High 11.7-14.9 [facility] RBC Auto (Bld) [#/Vol]Ordere d By: Shayy Curtis on 09-21-2024 RBC (Bld) [#/Vol] 4.75 10*6/uL 4.6-6.2 [facility] Serum creatinine measurement (mass/volume)Ordered By: Shayy Curtis on 09-21-2024 Creatinine [Mass/Vol] 0.70 mg/dL 0.70-1.20 [facility] Serum glucose measurement (m ass/volume)Ordered By: Shayy Curtis on 09-21-2024 Glucose [Mass/Vol] 101 mg/dL High 70-99 [facility] Serum or plasma calcium alvaro urement (mass/volume)Ordered By: Shayy Curtis on 09-21-2024 Calcium [Mass/Vol] 9.2 mg/dL 7.6-11.0 [facility] Serum or plasma urea nitroge n measurement (mass/volume)Ordered By: Shayy Curtis on 09-21-2024 Urea nitrogen [Mass/Vol] 11 mg/dL 4-19 [facility] Sodium levelOrdered By: Latrice Curtis on 09-21-2024 Sodium [Moles/Vol] 139 mmol/L 133-145 [facility] White blood cell (WBC) count Ordered By: Shayy Curtis on 09-21-2024 WBC (Bld) [#/Vol] 6.3 10*3/uL 4.4-11.0 [facility] International normalized rat io (INR) measurement by fingerstickOrdered By: Shayy Curtis on 09-19-2024 INR Coag (BldC) [Relative time] 1.9 [facility] Comment on above: Critical Value > 4.0 Whole blood prothrombin time Ordered By: Shayy Curtis on 09-19-2024 PT Coag (Bld) [Time] 21.5 s High 11.7-14.9 [facility] International normalized rat io (INR) calculationOrdered By: Shayy Curtis on 09-15-2024 INR Coag (Bld) [Relative time] 2.1 {INR} [facility] Prothrombin timeOrdered By: Shayy Curtis on 09-15-2024 PT Coag (PPP) [Time] 24.2 s High 11.7-14.9 [facility] Absolute lymphocyte countOrd ered By: Shayy Curtis on 09-14-2024 Lymphocytes Auto (Unsp spec) [#/Vol] 1.57 10*3/uL 0.83-4.51 [facility] Absolute neutrophil countOrd ered By: Shayy Curtis on 09-14-2024 Neutrophils (Bld) [#/Vol] 5.1 10*3/uL 2.0-7.7 [facility] Anion gap in Serum or Plasma Ordered By: Shayy Curtis on 09-14-2024 Anion gap [Moles/Vol] 12 mmol/L 5-15 [facility] Automated lymphocyte count a s percentage of total leukocytesOrdered By: Shayy Curtis on 09-14-2024 Lymphocytes/100 WBC Auto (Unsp spec) 20.8 % - [facility] BUN/creatinine ratioOrdered By: Shayy Curtis on 09-14-2024 Urea nitrogen/Creatinine [Mass ratio] 21.8 mg/mg High 10-20 [facility] Basophil percentageOrdered B y: Shayy Curtis on 09-14-2024 Basophils/100 WBC (Bld) 1.1 % High 0-1 [facility] Carbon dioxide, total [Moles /volume] in Central venous bloodOrdered By: Shayy Curtis on 09-14-2024 CO2 [Moles/Vol] 21.8 mmol/L 21.0-32.0 [facility] Chloride assayOrdered By: Hung Curtis on 09-14-2024 Chloride [Moles/Vol] 107 mmol/L 98-108 [facility] Eosinophil percentageOrdered By: Shayy Curtis on 09-14-2024 Eosinophils/100 WBC (Bld) 1.7 % 0-5 [facility] Erythrocyte distribution wid th ratioOrdered By: Hungbaldomero Salazartomyradha on 09-14-2024 Erythrocyte distribution width (RBC) [Ratio] 17.7 % High 11.6-14.6 [facility] Erythrocyte distribution wid th standard deviationOrdered By: Shayy Curtis on 09-14-2024 Erythrocyte distribution width (RBC) [Ratio] 51.1 fl High 35.1-43.9 [facility] Glomerular filtration rate ( GFR) estimation/1.73 sq m using serum, plasma, or whole bOrdered By: Shayy Curtis on 09-14-2024 GFR/1.73 sq M.predicted among non-blacks MDRD (S/P/Bld) [Vol rate/Area] 87 mL/min/{1.73_m2} >60 [facility] Comment on above: mL/min/1.73m2 CKD-EP I Creatinine Equation (2020) Hematocrit Auto (Bld) [Volum e fraction]Ordered By: Shayy Curtis on 09-14-2024 Hematocrit (Bld) [Volume fraction] 34.7 % Low 40-54 [facility] Hemoglobin measurementOrdere d By: Shayy Curtis on 09-14-2024 Hemoglobin (Bld) [Mass/Vol] 10.7 g/dL Low 13.0-16.5 [facility] Immature granulocytes/100 WB C Auto (Bld)Ordered By: Shayy Curtis on 09-14-2024 Immature granulocytes/100 WBC (Bld) 0.400 % 0.0-0.9 [facility] Comment on above: IG% - Immature Granu locytes (promyelocytes, myelocytes and metamyelocytes) > 1% indicates that a LEFT SHIFT is Present. MCV (mean corpuscular volume ) determinationOrdered By: Shayy Curtis on 09-14-2024 MCV (RBC) [Entitic vol] 78.9 fL Low 80-94 [facility] Mean corpuscular hemoglobin (MCH) determinationOrdered By: Shayy Curtis on 09-14-2024 MCH (RBC) [Entitic mass] 24.3 pg Low 27.0-32.0 [facility] Mean corpuscular hemoglobin concentration (MCHC) determinationOrdered By: Shayy Curtis on 09-14-2024 MCHC (RBC) [Mass/Vol] 30.8 g/dL Low 32-36 [facility] Mean platelet volume determi nationOrdered By: Shayy Curtis on 09-14-2024 Platelet mean volume (Bld) [Entitic vol] 10.6 fL 6.2-12.0 [facility] Monocyte percentageOrdered B y: Shayy Curtis on 09-14-2024 Monocytes/100 WBC (Bld) 8.5 % 0-10 [facility] Neutrophil percentageOrdered By: holliechampionirlanda Curtis on 09-14-2024 Neutrophils/100 WBC (Bld) 67.5 % 47-70 [facility] Nucleated red blood cell per centageOrdered By: Shayy Curtis on 09-14-2024 Nucleated RBC/100 WBC (Bld) [Ratio] 0 % 0-5 [facility] Platelet countOrdered By: Hung Curtis on 09-14-2024 Platelets (Bld) [#/Vol] 291 10*3/uL 150-450 [facility] Potassium measurement (mass/ volume)Ordered By: Shayy Curtis on 09-14-2024 Potassium (Unsp spec) [Mass/Vol] 4.0 mmol/L 3.3-5.1 [facility] RBC Auto (Bld) [#/Vol]Ordere d By: Shayy Curtis on 09-14-2024 RBC (Bld) [#/Vol] 4.40 10*6/uL Low 4.6-6.2 [facility] Serum creatinine measurement (mass/volume)Ordered By: Shayy Curtis on 09-14-2024 Creatinine [Mass/Vol] 0.74 mg/dL 0.70-1.20 [facility] Serum glucose measurement (m ass/volume)Ordered By: Shayy Curtis on 09-14-2024 Glucose [Mass/Vol] 99 mg/dL 70-99 [facility] Serum or plasma calcium alvaro urement (mass/volume)Ordered By: Shayy Curtis on 09-14-2024 Calcium [Mass/Vol] 8.6 mg/dL 7.6-11.0 [facility] Serum or plasma urea nitroge n measurement (mass/volume)Ordered By: Shayy Curtis on 09-14-2024 Urea nitrogen [Mass/Vol] 16 mg/dL 4-19 [facility] Sodium levelOrdered By: Latrice simonmaira Ever on 09-14-2024 Sodium [Moles/Vol] 141 mmol/L 133-145 [facility] White blood cell (WBC) count Ordered By: Shayy Curtis on 09-14-2024 WBC (Bld) [#/Vol] 7.5 10*3/uL 4.4-11.0 [facility] International normalized rat io (INR) measurement by fingerstickOrdered By: Shayy Curtis on 09-12-2024 INR Coag (BldC) [Relative time] 3.2 [facility] Comment on above: Critical Value > 4.0 Whole blood prothrombin time Ordered By: Shayy Curtis on 09-12-2024 PT Coag (Bld) [Time] 33.0 s High 11.7-14.9 [facility] International normalized rat io (INR) measurement by fingerstickOrdered By: Shayy Curtis on 09-08-2024 INR Coag (BldC) [Relative time] 2.2 [facility] Comment on above: Critical Value > 4.0 Prothrombin Time w/INRon INR Normal [facility] Comment on above: Result Comment: Canc elled via OM: Order cancelled - Patient discharged Performed By: #### L 300.3900 #### [facility] [address] [place], [place], [id number] PROTIME Normal 11.7-14.9 [facility] Comment on above: Result Comment: Canc elled via OM: Order cancelled - Patient discharged Performed By: #### L 300.3900 #### [facility] [address] [place], [place], [id number] Whole blood prothrombin time Ordered By: Shayy Curtis on 09-08-2024 PT Coag (Bld) [Time] 23.8 s High 11.7-14.9 [facility] Anion gap in Serum or Plasma Ordered By: Shayy Curtis on 09-07-2024 Anion gap [Moles/Vol] 10 mmol/L 5-15 [facility] BUN/creatinine ratioOrdered By: Shayy Curtis on 09-07-2024 Urea nitrogen/Creatinine [Mass ratio] 14.0 mg/mg 10-20 [facility] Bilirubin, totalOrdered By: Shayy Curtis on 09-07-2024 Bilirubin [Mass/Vol] 1.02 mg/dL 0.00-1.30 [facility] Calculated very low density lipoprotein (VLDL) cholesterol measurementOrdered By: Shayy Curtis on 09-07-2024 Calculated very low density lipoprotein (VLDL) cholesterol measurement 13 mg/dL 5-40 [facility] Carbon dioxide, total [Moles /volume] in Central venous bloodOrdered By: Shayy Curtis on 09-07-2024 CO2 [Moles/Vol] 25.4 mmol/L 21.0-32.0 [facility] Chloride assayOrdered By: Hung Curtis on 09-07-2024 Chloride [Moles/Vol] 104 mmol/L 98-108 [facility] Culture, Blood (WB)on 2024 CUB No growth in 5 days. Normal [facility] Comment on above: Performed By: #### M 200.1000, L509.7001, L101.9900, L501.6710 #### [facility] [address] [place], [address] Glomerular filtration rate ( GFR) estimation/1.73 sq m using serum, plasma, or whole bOrdered By: Shayy Curtis on 09-07-2024 GFR/1.73 sq M.predicted among non-blacks MDRD (S/P/Bld) [Vol rate/Area] 88 mL/min/{1.73_m2} >60 [facility] Comment on above: mL/min/1.73m2 CKD-EP I Creatinine Equation (2020) LDL calc ser/plasOrdered By: Shayy Curtis on 09-07-2024 Cholesterol in LDL [Mass/Vol] 64 mg/dL [facility] Comment on above: Hqefjcxuqf=455-514 m g/dL & Higher Keiu=296 mg/dL or greater Laboratory - Chemistry and C hemistry - challengeOrdered By: Shayy Curtis on 09-07-2024 AST [Catalytic activity/Vol] 33 U/L <38 [facility] Potassium measurement (mass/ volume)Ordered By: Shayy Curtis on 09-07-2024 Potassium (Unsp spec) [Mass/Vol] 3.8 mmol/L 3.3-5.1 [facility] Prothrombin Time w/INRon INR Normal [facility] Comment on above: Result Comment: Canc elled via OM: Order cancelled - Patient discharged Performed By: #### L 300.3900 #### [facility] [address] [place], [address] PROTIME Normal 11.7-14.9 [facility] Comment on above: Result Comment: Canc elled via OM: Order cancelled - Patient discharged Performed By: #### L 300.3900 #### [facility] [address] [place], [address] Screening total cholesterol/ high density lipoprotein (HDL) cholesterol ratioOrdered By: Shayy Curtis on 09-07-2024 Cholesterol.total/Cho lesterol in HDL [Mass ratio] 3.75 {ratio} [facility] Serum creatinine measurement (mass/volume)Ordered By: Shayy Curtis on 09-07-2024 Creatinine [Mass/Vol] 0.70 mg/dL 0.70-1.20 [facility] Serum globulin measurementOr dered By: Shayy Curtis on 09-07-2024 Globulin (S) [Mass/Vol] 2.5 g/dL 2.2-4.2 [facility] Serum glucose measurement (m ass/volume)Ordered By: Shayy Curtis on 09-07-2024 Glucose [Mass/Vol] 107 mg/dL High 70-99 [facility] Serum or plasma alanine franks otransferase (ALT) measurementOrdered By: Shayy Curtis on 09-07-2024 ALT [Catalytic activity/Vol] 23 U/L <47 [facility] Serum or plasma albumin alvaro urement (mass/volume)Ordered By: Shayy Curtis on 09-07-2024 Albumin [Mass/Vol] 3.7 g/dL 3.4-4.8 [facility] Serum or plasma albumin/glob ulin mass ratioOrdered By: Shayy Curtis on 09-07-2024 Albumin/Globulin [Mass ratio] 1.5 {ratio} 0.9-2.4 [facility] Serum or plasma alkaline carole sphatase measurementOrdered By: Shayy Curtis on 09-07-2024 ALP [Catalytic activity/Vol] 123 U/L 40-129 [facility] Serum or plasma calcium alvaro urement (mass/volume)Ordered By: Shayy Curtis on 09-07-2024 Calcium [Mass/Vol] 8.7 mg/dL 7.6-11.0 [facility] Serum or plasma cholesterol in HDL measurement (mass/volume)Ordered By: Shayy Curtis on 09-07-2024 Cholesterol in HDL [Mass/Vol] 28 mg/dL Low >40 [facility] Comment on above: National Cholesterol Education Program (NCEP) guidelines:<40 mg/dL: Low HDL-cholesterol (major risk factor for CHD)>= 60 mg/dL: High HDL-cholesterol (negative risk factor for CHD)HDL-cholesterol is affected by a number of factors, e.g. smoking, exercise, hormones, sex and age. Serum or plasma cholesterol measurement (mass/volume)Ordered By: Shayy Curtis on 09-07-2024 Cholesterol [Mass/Vol] 105 mg/dL <201 [facility] Comment on above: Cholesterol level, D esirable <200 mg/dLBorderline high cholesterol 200-239 mg/dLHigh cholesterol >=240 mg/dLRecommendations of the NCEP Adult Treatment Panel for the following risk-cutoff thresholds for the [place] population. Serum or plasma urea nitroge n measurement (mass/volume)Ordered By: Shayy Curtis on 09-07-2024 Urea nitrogen [Mass/Vol] 10 mg/dL 4-19 [facility] Sodium levelOrdered By: Latrice Curtis on 09-07-2024 Sodium [Moles/Vol] 139 mmol/L 133-145 [facility] TSH DL <= 0.005 mIU/L QnOrde red By: Shayy Curtis on 09-07-2024 TSH Qn 0.300 uIU/mL 0.300-4.20 0 [facility] Total proteinOrdered By: Yazan Curtis on 09-07-2024 Protein [Mass/Vol] 6.2 g/dL 5.9-8.4 [facility] Triglycerides measurementOrd ered By: Shayy Curtis on 09-07-2024 Triglyceride [Mass/Vol] 63 mg/dL <199 [facility] Comment on above: The drugs N-Acetylcy steine and Metamizole may falsely depress this assay. Normal range: <150 mg/dLBorderline High: 150-199 mg/dLHigh: 200-499 mg/dLVery High: >500 mg/dL Vitamin B12 ser/plasOrdered By: Shayy Curtis on 09-07-2024 Cobalamin (Vitamin B12) [Mass/Vol] 519 pg/mL 180-914 [facility] Absolute lymphocyte countOrd ered By: Navid Dominguez on 09-06-2024 Lymphocytes Auto (Unsp spec) [#/Vol] 1.28 10*3/uL 0.83-4.51 [facility] Absolute neutrophil countOrd ered By: Navid Dominguez on 09-06-2024 Neutrophils (Bld) [#/Vol] 5.2 10*3/uL 2.0-7.7 [facility] Anion gap in Serum or Plasma Ordered By: Navid Dominguez on 09-06-2024 Anion gap [Moles/Vol] 10 mmol/L 5-15 [facility] Automated blood erythrocyte countOrdered By: Navid Dominguez on 09-06-2024 RBC (Bld) [#/Vol] 4.39 10*6/uL Low 4.6-6.2 [facility] Comment on above: Performed By: #### L 100.0100, L500.2500, L300.3900 #### [facility] [address] [place], [place], [id number] Automated blood hematocrit ( percentage)Ordered By: Navid Dominguez on 09-06-2024 Hematocrit (Bld) [Volume fraction] 33.6 % Low 40-54 [facility] Comment on above: Performed By: #### L 100.0100, L500.2500, L300.3900 #### [facility] [address] [place], [place], [id number] Automated lymphocyte count a s percentage of total leukocytesOrdered By: Navid Dominguze on 09-06-2024 Lymphocytes/100 WBC Auto (Unsp spec) 16.4 % Low 19-41 [facility] BUN/creatinine ratioOrdered By: Navid Dominguez on 09-06-2024 Urea nitrogen/Creatinine [Mass ratio] 14.4 mg/mg - [facility] Basic Metabolic Profile (BMP )on 09-06-2024 BUN/CRE 14.4 RATIO Normal 01-09 [facility] Comment on above: Performed By: #### M 200.1000, L509.7001, L101.9900, L501.6710 #### [facility] [address] [place], [address] ECRCL 64.10 ml/min Normal 50-250 [facility] Comment on above: Performed By: #### M 200.1000, L509.7001, L101.9900, L501.6710 #### [facility] [address] [place], [id number] GAP 10 Normal 5-15 [facility] Comment on above: Performed By: #### M 200.1000, L509.7001, L101.9900, L501.6710 #### [facility] [address] [place], [id number] Potassium [Moles/Vol] 3.5 mmol/L Normal 3.3-5.1 [facility] Comment on above: Performed By: #### M 200.1000, L509.7001, L101.9900, L501.6710 #### [facility] [address] [place], [id number] Basophil percentageOrdered B y: Navid Alberto on 09-06-2024 Basophils/100 WBC (Bld) 1.0 % 0-1 [facility] Comment on above: Performed By: #### L 100.0100, L500.2500, L300.3900 #### [facility] [address] [place], [id number] CBC W/Diff, Automatedon - Absolute Lymph 1.28 X10 3/uL Normal 0.83-4.51 [facility] Comment on above: Performed By: #### L 100.0100, L500.2500, L300.3900 #### [facility] [address] [place], [id number] Absolute Neut 5.2 X10 3/uL Normal 2.0-7.7 [facility] Comment on above: Performed By: #### L 100.0100, L500.2500, L300.3900 #### [facility] [address] [place], [id number] IG% 0.400 Normal 0.0-0.9 [facility] Comment on above: Result Comment: IG% - Immature Granulocytes (promyelocytes, myelocytes and metamyelocytes) > 1% indicates that a LEFT SHIFT is Present. Performed By: #### L 100.0100, L500.2500, L300.3900 #### [facility] [address] [place], [address] Lymphocytes/100 WBC (Bld) 16.4 % Low 19-41 [facility] Comment on above: Performed By: #### L 100.0100, L500.2500, L300.3900 #### [facility] [address] [place], [address] Nucleated RBC (Bld) [#/Vol] 0 10*3/uL Normal 0-5 [facility] Comment on above: Performed By: #### L 100.0100, L500.2500, L300.3900 #### [facility] [address] [place], [address] RDW SD 48.2 fl High 35.1-43.9 [facility] Comment on above: Performed By: #### L 100.0100, L500.2500, L300.3900 #### [facility] [address] [place], [address] Carbon dioxide, total [Moles /volume] in Central venous bloodOrdered By: Navid Dominguez on 09-06-2024 CO2 [Moles/Vol] 24.9 mmol/L 21.0-32.0 [facility] Comment on above: Performed By: #### M 200.1000, L509.7001, L101.9900, L501.6710 #### [facility] [address] [place], [address] Chloride assayOrdered By: Cameron Dominguez on 09-06-2024 Chloride [Moles/Vol] 106 mmol/L 98-108 [facility] Comment on above: Performed By: #### M 200.1000, L509.7001, L101.9900, L501.6710 #### [facility] [address] [place], [address] Eosinophil percentageOrdered By: Navid Dominguez on 09-06-2024 Eosinophils/100 WBC (Bld) 6.3 % High 0-5 [facility] Comment on above: Performed By: #### L 100.0100, L500.2500, L300.3900 #### [facility] [address] [place], [address] Erythrocyte distribution wid th ratioOrdered By: Navid Dominguez on 09-06-2024 Erythrocyte distribution width (RBC) [Ratio] 17.4 % High 11.6-14.6 [facility] Comment on above: Performed By: #### L 100.0100, L500.2500, L300.3900 #### [facility] [address] [place], [address] Erythrocyte distribution wid th standard deviationOrdered By: Navid Dominguez on 09-06-2024 Erythrocyte distribution width (RBC) [Ratio] 48.2 fl High 35.1-43.9 [facility] Glomerular filtration rate ( GFR) estimation/1.73 sq m using serum, plasma, or whole bOrdered By: Navid Dominguez on 09-06-2024 GFR/1.73 sq M.predicted among non-blacks MDRD (S/P/Bld) [Vol rate/Area] 87 mL/min/{1.73_m2} >60 [facility] Comment on above: mL/min/1.73m2 CKD-EP I Creatinine Equation (2020) Result Comment: mL/m in/1.73m2 CKD-EPI Creatinine Equation (2020) Performed By: #### M 200.1000, L509.7001, L101.9900, L501.6710 #### [facility] [address] [place], [place], [address] Hemoglobin measurementOrdere d By: Navid Dominguez on 09-06-2024 Hemoglobin (Bld) [Mass/Vol] 10.8 g/dL Low 13.0-16.5 [facility] Comment on above: Performed By: #### L 100.0100, L500.2500, L300.3900 #### [facility] [address] [place], [address] Immature granulocytes/100 WB C Auto (Bld)Ordered By: Navid Dominguez on 09-06-2024 Immature granulocytes/100 WBC (Bld) 0.400 % 0.0-0.9 [facility] Comment on above: IG% - Immature Granu locytes (promyelocytes, myelocytes and metamyelocytes) > 1% indicates that a LEFT SHIFT is Present. International normalized rat io (INR) calculationOrdered By: Navid Dominguez on 09-06-2024 INR Coag (Bld) [Relative time] 2.4 {INR} [facility] MCV (mean corpuscular volume ) determinationOrdered By: Navid Dominguez on 09-06-2024 MCV (RBC) [Entitic vol] 76.5 fL Low 80-94 [facility] Comment on above: Performed By: #### L 100.0100, L500.2500, L300.3900 #### [facility] [address] [place], [place], [address] Mean corpuscular hemoglobin (MCH) determinationOrdered By: Navid Dominguez on 09-06-2024 MCH (RBC) [Entitic mass] 24.6 pg Low 27.0-32.0 [facility] Comment on above: Performed By: #### L 100.0100, L500.2500, L300.3900 #### [facility] [address] [place], [place], [address] Mean corpuscular hemoglobin concentration (MCHC) determinationOrdered By: Navid Dominguez on 09-06-2024 MCHC (RBC) [Mass/Vol] 32.1 g/dL 32-36 [facility] Comment on above: Performed By: #### L 100.0100, L500.2500, L300.3900 #### [facility] [address] [place], [address] Mean platelet volume determi nationOrdered By: Navid Dominguez on 09-06-2024 Platelet mean volume (Bld) [Entitic vol] 9.4 fL 6.2-12.0 [facility] Comment on above: Performed By: #### L 100.0100, L500.2500, L300.3900 #### [facility] [address] [place], [address] Monocyte percentageOrdered B y: aNvid Dominguez on 09-06-2024 Monocytes/100 WBC (Bld) 9.1 % 0-10 [facility] Comment on above: Performed By: #### L 100.0100, L500.2500, L300.3900 #### [facility] [address] [place], [address] Neutrophil percentageOrdered By: Navid Dominguez on 09-06-2024 Neutrophils/100 WBC (Bld) 66.8 % 47-70 [facility] Comment on above: Performed By: #### L 100.0100, L500.2500, L300.3900 #### [facility] [address] [place], [address] Nucleated red blood cell per centageOrdered By: Navid Dominguez on 09-06-2024 Nucleated RBC/100 WBC (Bld) [Ratio] 0 % 0-5 [facility] Platelet countOrdered By: Cameron Dominguez on 09-06-2024 Platelets (Bld) [#/Vol] 325 10*3/uL 150-450 [facility] Comment on above: Performed By: #### L 100.0100, L500.2500, L300.3900 #### [facility] [address] [place], [address] Potassium measurement (mass/ volume)Ordered By: Navid Dominguez on 09-06-2024 Potassium (Unsp spec) [Mass/Vol] 3.5 mmol/L 3.3-5.1 [facility] Prothrombin Time w/INRon INR Coag (PPP) [Relative time] 2.4 {INR} Normal [facility] Comment on above: Performed By: #### M 200.1000, L509.7001, L101.9900, L501.6710 #### [facility] [address] [place], [address] Prothrombin timeOrdered By: Navid Dominguez on 09-06-2024 PT Coag (PPP) [Time] 27.0 s High 11.7-14.9 [facility] Comment on above: Performed By: #### M 200.1000, L509.7001, L101.9900, L501.6710 #### [facility] [address] [place], [address] Serum creatinine measurement (mass/volume)Ordered By: Navid Dominguez on 09-06-2024 Creatinine [Mass/Vol] 0.73 mg/dL 0.70-1.20 [facility] Comment on above: Performed By: #### M 200.1000, L509.7001, L101.9900, L501.6710 #### [facility] [address] [place], [address] Serum glucose measurement (m ass/volume)Ordered By: Navid Dominguez on 09-06-2024 Glucose [Mass/Vol] 109 mg/dL High 70-99 [facility] Comment on above: Performed By: #### M 200.1000, L509.7001, L101.9900, L501.6710 #### [facility] [address] [place], [address] Serum or plasma calcium alvaro urement (mass/volume)Ordered By: Navid Dominguez on 09-06-2024 Calcium [Mass/Vol] 8.7 mg/dL 7.6-11.0 [facility] Comment on above: Performed By: #### M 200.1000, L509.7001, L101.9900, L501.6710 #### [facility] [address] [place], [address] Serum or plasma urea nitroge n measurement (mass/volume)Ordered By: Navid Dominguez on 09-06-2024 Urea nitrogen [Mass/Vol] 11 mg/dL 4-19 [facility] Comment on above: Performed By: #### M 200.1000, L509.7001, L101.9900, L501.6710 #### [facility] [address] [place], [address] Sodium levelOrdered By: Kamilah Dominguez on 09-06-2024 Sodium [Moles/Vol] 141 mmol/L 133-145 [facility] Comment on above: Performed By: #### M 200.1000, L509.7001, L101.9900, L501.6710 #### [facility] [address] [place], [address] White blood cell (WBC) count Ordered By: Navid Dominguez on 09-06-2024 WBC (Bld) [#/Vol] 7.8 10*3/uL 4.4-11.0 [facility] Comment on above: Performed By: #### L 100.0100, L500.2500, L300.3900 #### [facility] [address] [place], [id number] Basic Metabolic Profile (BMP )on 09-05-2024 BUN/CRE 13.4 RATIO Normal 10-20 [facility] Comment on above: Performed By: #### M 200.1000, L509.7001, L101.9900, L501.6710 #### [facility] [address] [place], [address] Calcium [Mass/Vol] 8.6 mg/dL Normal 7.6-11.0 [facility] Comment on above: Performed By: #### M 200.1000, L509.7001, L101.9900, L501.6710 #### [facility] [address] [place], [address] Chloride [Moles/Vol] 105 mmol/L Normal 98-108 [facility] Comment on above: Performed By: #### M 200.1000, L509.7001, L101.9900, L501.6710 #### [facility] [address] [place], [address] CO2 [Moles/Vol] 21.9 mmol/L Normal 21.0-32.0 [facility] Comment on above: Performed By: #### M 200.1000, L509.7001, L101.9900, L501.6710 #### [facility] [address] [place], [address] Creatinine [Mass/Vol] 0.62 mg/dL Low 0.70-1.20 [facility] Comment on above: Performed By: #### M 200.1000, L509.7001, L101.9900, L501.6710 #### [facility] [address] [place], [id number] ECRCL 64.10 ml/min Normal 50-250 [facility] Comment on above: Performed By: #### M 200.1000, L509.7001, L101.9900, L501.6710 #### [facility] [address] [place], [address] GAP 12 Normal 5-15 [facility] Comment on above: Performed By: #### M 200.1000, L509.7001, L101.9900, L501.6710 #### [facility] [address] [place], [address] GFR/1.73 sq M.predicted among non-blacks MDRD (S/P/Bld) [Vol rate/Area] 91 mL/min/{1.73_m2} Normal >60 [facility] Comment on above: Result Comment: mL/m in/1.73m2 CKD-EPI Creatinine Equation (2020) Performed By: #### M 200.1000, L509.7001, L101.9900, L501.6710 #### [facility] [address] [place], [address] Glucose [Mass/Vol] 119 mg/dL High 70-99 [facility] Comment on above: Performed By: #### M 200.1000, L509.7001, L101.9900, L501.6710 #### [facility] [address] [place], [address] Potassium [Moles/Vol] 3.3 mmol/L Normal 3.3-5.1 [facility] Comment on above: Performed By: #### M 200.1000, L509.7001, L101.9900, L501.6710 #### [facility] [address] [place], [address] Sodium [Moles/Vol] 139 mmol/L Normal 133-145 [facility] Comment on above: Performed By: #### M 200.1000, L509.7001, L101.9900, L501.6710 #### [facility] [address] [place], [address] Urea nitrogen [Mass/Vol] 8 mg/dL Normal 4-19 [facility] Comment on above: Performed By: #### M 200.1000, L509.7001, L101.9900, L501.6710 #### [facility] [address] [place], [address] Bilirubin Test strip Ql (U)O rdered By: Marta Black on 09-05-2024 Bilirubin Ql (U) Negative Negative [facility] CBC W/Diff, Automatedon - Absolute Lymph 0.96 X10 3/uL Normal 0.83-4.51 [facility] Comment on above: Performed By: #### M 200.1000, L509.7001, L101.9900, L501.6710 #### [facility] [address] [place], [address] Absolute Neut 7.6 X10 3/uL Normal 2.0-7.7 [facility] Comment on above: Performed By: #### M 200.1000, L509.7001, L101.9900, L501.6710 #### [facility] [address] [place], [address] Basophils/100 WBC (Bld) 0.7 % Normal 0-1 [facility] Comment on above: Performed By: #### M 200.1000, L509.7001, L101.9900, L501.6710 #### [facility] [address] [place], [address] Eosinophils/100 WBC (Bld) 4.0 % Normal 0-5 [facility] Comment on above: Performed By: #### M 200.1000, L509.7001, L101.9900, L501.6710 #### [facility] [address] [place], [address] Erythrocyte distribution width (RBC) [Ratio] 17.6 % High 11.6-14.6 [facility] Comment on above: Performed By: #### M 200.1000, L509.7001, L101.9900, L501.6710 #### [facility] [address] [place], [address] Hematocrit (Bld) [Volume fraction] 35.3 % Low 40-54 [facility] Comment on above: Performed By: #### M 200.1000, L509.7001, L101.9900, L501.6710 #### [facility] [address] [place], [address] Hemoglobin (Bld) [Mass/Vol] 11.3 g/dL Low 13.0-16.5 [facility] Comment on above: Performed By: #### M 200.1000, L509.7001, L101.9900, L501.6710 #### [facility] [address] [place], [address] IG% 0.400 Normal 0.0-0.9 [facility] Comment on above: Result Comment: IG% - Immature Granulocytes (promyelocytes, myelocytes and metamyelocytes) > 1% indicates that a LEFT SHIFT is Present. Performed By: #### M 200.1000, L509.7001, L101.9900, L501.6710 #### [facility] [address] [place], [address] Lymphocytes/100 WBC (Bld) 9.8 % Low 19-41 [facility] Comment on above: Performed By: #### M 200.1000, L509.7001, L101.9900, L501.6710 #### [facility] [address] [place], [address] MCH (RBC) [Entitic mass] 24.4 pg Low 27.0-32.0 [facility] Comment on above: Performed By: #### M 200.1000, L509.7001, L101.9900, L501.6710 #### [facility] [address] [place], [address] MCHC (RBC) [Mass/Vol] 32.0 g/dL Normal 32-36 [facility] Comment on above: Performed By: #### M 200.1000, L509.7001, L101.9900, L501.6710 #### [facility] [address] [place], [id number] MCV (RBC) [Entitic vol] 76.2 fL Low 80-94 [facility] Comment on above: Performed By: #### M 200.1000, L509.7001, L101.9900, L501.6710 #### [facility] [address] [place], [address] Monocytes/100 WBC (Bld) 7.9 % Normal 0-10 [facility] Comment on above: Performed By: #### M 200.1000, L509.7001, L101.9900, L501.6710 #### [facility] [address] [place], [address] Neutrophils/100 WBC (Bld) 77.2 % High 47-70 [facility] Comment on above: Performed By: #### M 200.1000, L509.7001, L101.9900, L501.6710 #### [facility] [address] [place], [address] Nucleated RBC (Bld) [#/Vol] 0 10*3/uL Normal 0-5 [facility] Comment on above: Performed By: #### M 200.1000, L509.7001, L101.9900, L501.6710 #### [facility] [address] [place], [address] Platelet mean volume (Bld) [Entitic vol] 9.3 fL Normal 6.2-12.0 [facility] Comment on above: Performed By: #### M 200.1000, L509.7001, L101.9900, L501.6710 #### [facility] [address] [place], [address] Platelets (Bld) [#/Vol] 329 10*3/uL Normal 150-450 [facility] Comment on above: Performed By: #### M 200.1000, L509.7001, L101.9900, L501.6710 #### [facility] [address] [place], [address] RBC (Bld) [#/Vol] 4.63 10*6/uL Normal 4.6-6.2 [facility] Comment on above: Performed By: #### M 200.1000, L509.7001, L101.9900, L501.6710 #### [facility] [address] [place], [address] RDW SD 47.9 fl High 35.1-43.9 [facility] Comment on above: Performed By: #### M 200.1000, L509.7001, L101.9900, L501.6710 #### [facility] [address] [place], [address] WBC (Bld) [#/Vol] 9.8 10*3/uL Normal 4.4-11.0 [facility] Comment on above: Performed By: #### M 200.1000, L509.7001, L101.9900, L501.6710 #### [facility] [address] [place], [address] Ketones Test strip Ql (U)Ord ered By: Marta Black on 09-05-2024 Ketones Ql (U) Negative Negative [facility] Microscopic analysis of urin e for red blood cells (RBC)Ordered By: Marta Black on 09-05-2024 Microscopic analysis of urine for red blood cells (RBC) 0-5 SEEN /hpf 0-5 [facility] Mucus LM Ql (Urine sed)Order ed By: Marta Black on 09-05-2024 Mucus Ql (Urine sed) 0 SEEN /hpf [facility] Nitrite Test strip Ql (U)Ord ered By: Marta Black on 09-05-2024 Nitrite Ql (U) Negative Negative [facility] Protein Test strip Ql (U)Ord ered By: Marta Black on 09-05-2024 Protein Ql (U) 15 mg/dl High Negative [facility] Prothrombin Time w/INRon INR Coag (PPP) [Relative time] 2.2 {INR} Normal [facility] Comment on above: Performed By: #### M 200.1000, L509.7001, L101.9900, L501.6710 #### [facility] [address] [place], [address] PT Coag (PPP) [Time] 24.7 s High 11.7-14.9 [facility] Comment on above: Performed By: #### M 200.1000, L509.7001, L101.9900, L501.6710 #### [facility] [address] [place], [address] Squamous epithelial cells de tection in urine sediment by light microscopyOrdered By: Marta Black on 09-05-2024 Epithelial cells.squamous LM Ql (Urine sed) 0 SEEN /hpf 0-5 [facility] Urinalysis, Completeon 09-05 BACTERIA RARE Normal None Seen [facility] Comment on above: Order Comment: CLEAN CATCH Performed By: #### M 200.1000, L509.7001, L101.9900, L501.6710 #### [facility] [address] [place], [address] RBC 0-5 SEEN Normal 0-5 [facility] Comment on above: Order Comment: CLEAN CATCH Performed By: #### M 200.1000, L509.7001, L101.9900, L501.6710 #### [facility] [address] [place], [address] WBC 0-5 SEEN Normal 0-5 [facility] Comment on above: Order Comment: CLEAN CATCH Performed By: #### M 200.1000, L509.7001, L101.9900, L501.6710 #### [facility] [address] [place], [address] BILIRUBIN URINE Negative Normal Negative [facility] Comment on above: Order Comment: CLEAN CATCH Performed By: #### M 200.1000, L509.7001, L101.9900, L501.6710 #### [facility] [address] [place], [address] Clarity (U) Clear Normal Clear [facility] Comment on above: Order Comment: CLEAN CATCH Performed By: #### M 200.1000, L509.7001, L101.9900, L501.6710 #### [facility] [address] [place], [address] Color (U) Straw Normal Yellow [facility] Comment on above: Order Comment: CLEAN CATCH Performed By: #### M 200.1000, L509.7001, L101.9900, L501.6710 #### [facility] [address] [place], [address] GLUCOSE, UR Normal Normal Normal [facility] Comment on above: Order Comment: CLEAN CATCH Performed By: #### M 200.1000, L509.7001, L101.9900, L501.6710 #### [facility] [address] [place], [address] KETONE UR Negative Normal Negative [facility] Comment on above: Order Comment: CLEAN CATCH Performed By: #### M 200.1000, L509.7001, L101.9900, L501.6710 #### [facility] [address] [place], [address] LEUK ESTERASE Negative Normal Negative [facility] Comment on above: Order Comment: CLEAN CATCH Performed By: #### M 200.1000, L509.7001, L101.9900, L501.6710 #### [facility] [address] [place], [address] Nitrite Ql (U) Negative Normal Negative [facility] Comment on above: Order Comment: CLEAN CATCH Performed By: #### M 200.1000, L509.7001, L101.9900, L501.6710 #### [facility] [address] [place], [address] OCCULT BLOOD-UR 25 /ul Abnormal Negative [facility] Comment on above: Order Comment: CLEAN CATCH Performed By: #### M 200.1000, L509.7001, L101.9900, L501.6710 #### [facility] [address] [place], [address] pH UR 7.0 Normal 5.0 - 8.0 [facility] Comment on above: Order Comment: CLEAN CATCH Performed By: #### M 200.1000, L509.7001, L101.9900, L501.6710 #### [facility] [address] [place], [address] PROT DIPSTX 15 mg/dl Abnormal Negative [facility] Comment on above: Order Comment: CLEAN CATCH Performed By: #### M 200.1000, L509.7001, L101.9900, L501.6710 #### [facility] [address] [place], [address] SP.GR. DIPSTX 1.005 Normal 1.002-1.03 0 [facility] Comment on above: Order Comment: CLEAN CATCH Performed By: #### M 200.1000, L509.7001, L101.9900, L501.6710 #### [facility] [address] [place], [address] UROBILI Normal Normal Normal [facility] Comment on above: Order Comment: CLEAN CATCH Performed By: #### M 200.1000, L509.7001, L101.9900, L501.6710 #### [facility] [address] [place], [address] EPI,SQUAMOUS 0 SEEN Normal 0-5 [facility] Comment on above: Order Comment: CLEAN CATCH Performed By: #### M 200.1000, L509.7001, L101.9900, L501.6710 #### [facility] [address] [place], [address] Mucus Ql (Urine sed) 0 SEEN Normal [facility] Comment on above: Order Comment: CLEAN CATCH Performed By: #### M 200.1000, L509.7001, L101.9900, L501.6710 #### [facility] [address] [place], [address] Urine clarityOrdered By: Magnolia Black on 09-05-2024 Clarity (U) Clear Clear [facility] Urine color determinationOrd ered By: Marta Black on 09-05-2024 Color (U) Straw Yellow [facility] Urine glucose detectionOrder ed By: Marta Black on 09-05-2024 Glucose Ql (U) Normal mg/dl Normal [facility] Urine leukocyte esterase det ection by dipstickOrdered By: Marta Black on 09-05-2024 Leukocyte esterase Test strip Ql (U) Negative Negative [facility] Urine pHOrdered By: Marta Black on 09-05-2024 pH (U) 7.0 [pH] 5.0 - 8.0 [facility] Urine sediment bacteria coun t by microscopy (number/high power field)Ordered By: Marta Black on 09-05-2024 Bacteria LM.HPF (Urine sed) [#/Area] RARE /hpf None Seen [facility] Urine specific gravity measu rementOrdered By: Marta Black on 09-05-2024 Specific gravity (U) [Rel density] 1.005 1.002-1.03 0 [facility] Urine urobilinogen measureme ntOrdered By: Marta Black on 09-05-2024 Urobilinogen Ql (U) Normal mg/dl Normal [facility] White blood cell countOrdere d By: Marta Black on 09-05-2024 White blood cell count 0-5 SEEN /hpf 0-5 [facility] Basic Metabolic Profile (BMP )on 09-04-2024 BUN/CRE 17.3 RATIO Normal 10-20 [facility] Comment on above: Performed By: #### M 200.1000, L509.7001, L101.9900, L501.6710 #### [facility] [address] [place], [address] Calcium [Mass/Vol] 8.2 mg/dL Normal 7.6-11.0 [facility] Comment on above: Performed By: #### M 200.1000, L509.7001, L101.9900, L501.6710 #### [facility] [address] [place], [address] Chloride [Moles/Vol] 107 mmol/L Normal 98-108 [facility] Comment on above: Performed By: #### M 200.1000, L509.7001, L101.9900, L501.6710 #### [facility] [address] [place], [address] CO2 [Moles/Vol] 20.9 mmol/L Low 21.0-32.0 [facility] Comment on above: Performed By: #### M 200.1000, L509.7001, L101.9900, L501.6710 #### [facility] [address] [place], [address] Creatinine [Mass/Vol] 0.72 mg/dL Normal 0.70-1.20 [facility] Comment on above: Performed By: #### M 200.1000, L509.7001, L101.9900, L501.6710 #### [facility] [address] [place], [address] ECRCL 64.10 ml/min Normal 50-250 [facility] Comment on above: Performed By: #### M 200.1000, L509.7001, L101.9900, L501.6710 #### [facility] [address] [place], [address] GAP 11 Normal 5-15 [facility] Comment on above: Performed By: #### M 200.1000, L509.7001, L101.9900, L501.6710 #### [facility] [address] [place], [id number] GFR/1.73 sq M.predicted among non-blacks MDRD (S/P/Bld) [Vol rate/Area] 87 mL/min/{1.73_m2} Normal >60 [facility] Comment on above: Result Comment: mL/m in/1.73m2 CKD-EPI Creatinine Equation (2020) Performed By: #### M 200.1000, L509.7001, L101.9900, L501.6710 #### [facility] [address] [place], [id number] Glucose [Mass/Vol] 120 mg/dL High 70-99 [facility] Comment on above: Performed By: #### M 200.1000, L509.7001, L101.9900, L501.6710 #### [facility] [address] [place], [address] Potassium [Moles/Vol] 3.5 mmol/L Normal 3.3-5.1 [facility] Comment on above: Performed By: #### M 200.1000, L509.7001, L101.9900, L501.6710 #### [facility] [address] [place], [address] Sodium [Moles/Vol] 139 mmol/L Normal 133-145 [facility] Comment on above: Performed By: #### M 200.1000, L509.7001, L101.9900, L501.6710 #### [facility] [address] [place], [id number] Urea nitrogen [Mass/Vol] 12 mg/dL Normal 4-19 [facility] Comment on above: Performed By: #### M 200.1000, L509.7001, L101.9900, L501.6710 #### [facility] [address] [place], [address] CBC W/Diff, Automatedon 06-03 27-2024 Absolute Lymph 0.89 X10 3/uL Normal 0.83-4.51 [facility] Comment on above: Performed By: #### M 200.1000, L509.7001, L101.9900, L501.6710 #### [facility] [address] [place], [address] Absolute Neut 8.9 X10 3/uL High 2.0-7.7 [facility] Comment on above: Performed By: #### M 200.1000, L509.7001, L101.9900, L501.6710 #### [facility] [address] [place], [address] Basophils/100 WBC (Bld) 0.8 % Normal 0-1 [facility] Comment on above: Performed By: #### M 200.1000, L509.7001, L101.9900, L501.6710 #### [facility] [address] [place], [address] Eosinophils/100 WBC (Bld) 5.3 % High 0-5 [facility] Comment on above: Performed By: #### M 200.1000, L509.7001, L101.9900, L501.6710 #### [facility] [address] [place], [address] Erythrocyte distribution width (RBC) [Ratio] 17.5 % High 11.6-14.6 [facility] Comment on above: Performed By: #### M 200.1000, L509.7001, L101.9900, L501.6710 #### [facility] [address] [place], [address] Hematocrit (Bld) [Volume fraction] 33.3 % Low 40-54 [facility] Comment on above: Performed By: #### M 200.1000, L509.7001, L101.9900, L501.6710 #### [facility] [address] [place], [address] Hemoglobin (Bld) [Mass/Vol] 10.7 g/dL Low 13.0-16.5 [facility] Comment on above: Performed By: #### M 200.1000, L509.7001, L101.9900, L501.6710 #### [facility] [address] [place], [address] IG% 0.400 Normal 0.0-0.9 [facility] Comment on above: Result Comment: IG% - Immature Granulocytes (promyelocytes, myelocytes and metamyelocytes) > 1% indicates that a LEFT SHIFT is Present. Performed By: #### M 200.1000, L509.7001, L101.9900, L501.6710 #### [facility] [address] [place], [address] Lymphocytes/100 WBC (Bld) 7.8 % Low 19-41 [facility] Comment on above: Performed By: #### M 200.1000, L509.7001, L101.9900, L501.6710 #### [facility] [address] [place], [address] MCH (RBC) [Entitic mass] 24.6 pg Low 27.0-32.0 [facility] Comment on above: Performed By: #### M 200.1000, L509.7001, L101.9900, L501.6710 #### [facility] [address] [place], [address] MCHC (RBC) [Mass/Vol] 32.1 g/dL Normal 32-36 [facility] Comment on above: Performed By: #### M 200.1000, L509.7001, L101.9900, L501.6710 #### [facility] [address] [place], [address] MCV (RBC) [Entitic vol] 76.6 fL Low 80-94 [facility] Comment on above: Performed By: #### M 200.1000, L509.7001, L101.9900, L501.6710 #### [facility] [address] [place], [id number] Monocytes/100 WBC (Bld) 7.7 % Normal 0-10 [facility] Comment on above: Performed By: #### M 200.1000, L509.7001, L101.9900, L501.6710 #### [facility] [address] [place], [id number] Neutrophils/100 WBC (Bld) 78.0 % High 47-70 [facility] Comment on above: Performed By: #### M 200.1000, L509.7001, L101.9900, L501.6710 #### [facility] [address] [place], [id number] Nucleated RBC (Bld) [#/Vol] 0 10*3/uL Normal 0-5 [facility] Comment on above: Performed By: #### M 200.1000, L509.7001, L101.9900, L501.6710 #### [facility] [address] [place], [id number] Platelet mean volume (Bld) [Entitic vol] 10.6 fL Normal 6.2-12.0 [facility] Comment on above: Performed By: #### M 200.1000, L509.7001, L101.9900, L501.6710 #### [facility] [address] [place], [id number] Platelets (Bld) [#/Vol] 305 10*3/uL Normal 150-450 [facility] Comment on above: Performed By: #### M 200.1000, L509.7001, L101.9900, L501.6710 #### [facility] [address] [place], [id number] RBC (Bld) [#/Vol] 4.35 10*6/uL Low 4.6-6.2 [facility] Comment on above: Performed By: #### M 200.1000, L509.7001, L101.9900, L501.6710 #### [facility] [address] [place], [id number] RDW SD 48.3 fl High 35.1-43.9 [facility] Comment on above: Performed By: #### M 200.1000, L509.7001, L101.9900, L501.6710 #### [facility] [address] [place], [id number] WBC (Bld) [#/Vol] 11.4 10*3/uL High 4.4-11.0 [facility] Comment on above: Performed By: #### M 200.1000, L509.7001, L101.9900, L501.6710 #### [facility] [address] [place], [id number] Prothrombin Time w/INRon INR Coag (PPP) [Relative time] 1.9 {INR} Normal [facility] Comment on above: Performed By: #### L 300.3900 #### [facility] [address] [place], [id number] PT Coag (PPP) [Time] 21.8 s High 11.7-14.9 [facility] Comment on above: Performed By: #### L 300.3900 #### [facility] [address] [place], [id number] Basic Metabolic Profile (BMP )on 09-03-2024 BUN/CRE 13.3 RATIO Normal 10-20 [facility] Comment on above: Performed By: #### M 200.1000, L509.7001, L101.9900, L501.6710 #### [facility] [address] [place], [address] Calcium [Mass/Vol] 8.5 mg/dL Normal 7.6-11.0 [facility] Comment on above: Performed By: #### M 200.1000, L509.7001, L101.9900, L501.6710 #### [facility] [address] [place], [address] Chloride [Moles/Vol] 104 mmol/L Normal 98-108 [facility] Comment on above: Performed By: #### M 200.1000, L509.7001, L101.9900, L501.6710 #### [facility] [address] [place], [address] CO2 [Moles/Vol] 19.1 mmol/L Low 21.0-32.0 [facility] Comment on above: Performed By: #### M 200.1000, L509.7001, L101.9900, L501.6710 #### [facility] [address] [place], [address] Creatinine [Mass/Vol] 0.74 mg/dL Normal 0.70-1.20 [facility] Comment on above: Performed By: #### M 200.1000, L509.7001, L101.9900, L501.6710 #### [facility] [address] [place], [address] ECRCL 64.10 ml/min Normal 50-250 [facility] Comment on above: Performed By: #### M 200.1000, L509.7001, L101.9900, L501.6710 #### [facility] [address] [place], [address] GAP 13 Normal 5-15 [facility] Comment on above: Performed By: #### M 200.1000, L509.7001, L101.9900, L501.6710 #### [facility] [address] [place], [id number] GFR/1.73 sq M.predicted among non-blacks MDRD (S/P/Bld) [Vol rate/Area] 87 mL/min/{1.73_m2} Normal >60 [facility] Comment on above: Result Comment: mL/m in/1.73m2 CKD-EPI Creatinine Equation (2020) Performed By: #### M 200.1000, L509.7001, L101.9900, L501.6710 #### [facility] [address] [place], [id number] Glucose [Mass/Vol] 111 mg/dL High 70-99 [facility] Comment on above: Performed By: #### M 200.1000, L509.7001, L101.9900, L501.6710 #### [facility] [address] [place], [address] Potassium [Moles/Vol] 3.5 mmol/L Normal 3.3-5.1 [facility] Comment on above: Performed By: #### M 200.1000, L509.7001, L101.9900, L501.6710 #### [facility] [address] [place], [id number] Sodium [Moles/Vol] 137 mmol/L Normal 133-145 [facility] Comment on above: Performed By: #### M 200.1000, L509.7001, L101.9900, L501.6710 #### [facility] [address] [place], [id number] Urea nitrogen [Mass/Vol] 10 mg/dL Normal 4-19 [facility] Comment on above: Performed By: #### M 200.1000, L509.7001, L101.9900, L501.6710 #### [facility] [address] [place], [address] CBC W/Diff, Automatedon - Absolute Lymph 0.82 X10 3/uL Low 0.83-4.51 [facility] Comment on above: Performed By: #### M 200.1000, L509.7001, L101.9900, L501.6710 #### [facility] [address] [place], [address] Absolute Neut 10.2 X10 3/uL High 2.0-7.7 [facility] Comment on above: Performed By: #### M 200.1000, L509.7001, L101.9900, L501.6710 #### [facility] [address] [place], [address] Basophils/100 WBC (Bld) 0.7 % Normal 0-1 [facility] Comment on above: Performed By: #### M 200.1000, L509.7001, L101.9900, L501.6710 #### [facility] [address] [place], [address] Eosinophils/100 WBC (Bld) 2.8 % Normal 0-5 [facility] Comment on above: Performed By: #### M 200.1000, L509.7001, L101.9900, L501.6710 #### [facility] [address] [place], [address] Erythrocyte distribution width (RBC) [Ratio] 17.5 % High 11.6-14.6 [facility] Comment on above: Performed By: #### M 200.1000, L509.7001, L101.9900, L501.6710 #### [facility] [address] [place], [address] Hematocrit (Bld) [Volume fraction] 35.6 % Low 40-54 [facility] Comment on above: Performed By: #### M 200.1000, L509.7001, L101.9900, L501.6710 #### [facility] [address] [place], [address] Hemoglobin (Bld) [Mass/Vol] 11.3 g/dL Low 13.0-16.5 [facility] Comment on above: Performed By: #### M 200.1000, L509.7001, L101.9900, L501.6710 #### [facility] [address] [place], [address] IG% 0.400 Normal 0.0-0.9 [facility] Comment on above: Result Comment: IG% - Immature Granulocytes (promyelocytes, myelocytes and metamyelocytes) > 1% indicates that a LEFT SHIFT is Present. Performed By: #### M 200.1000, L509.7001, L101.9900, L501.6710 #### [facility] [address] [place], [address] Lymphocytes/100 WBC (Bld) 6.7 % Low 19-41 [facility] Comment on above: Performed By: #### M 200.1000, L509.7001, L101.9900, L501.6710 #### [facility] [address] [place], [address] MCH (RBC) [Entitic mass] 24.7 pg Low 27.0-32.0 [facility] Comment on above: Performed By: #### M 200.1000, L509.7001, L101.9900, L501.6710 #### [facility] [address] [place], [address] MCHC (RBC) [Mass/Vol] 31.7 g/dL Low 32-36 [facility] Comment on above: Performed By: #### M 200.1000, L509.7001, L101.9900, L501.6710 #### [facility] [address] [place], [id number] MCV (RBC) [Entitic vol] 77.7 fL Low 80-94 [facility] Comment on above: Performed By: #### M 200.1000, L509.7001, L101.9900, L501.6710 #### [facility] [address] [place], [id number] Monocytes/100 WBC (Bld) 6.0 % Normal 0-10 [facility] Comment on above: Performed By: #### M 200.1000, L509.7001, L101.9900, L501.6710 #### [facility] [address] [place], [id number] Neutrophils/100 WBC (Bld) 83.4 % High 47-70 [facility] Comment on above: Performed By: #### M 200.1000, L509.7001, L101.9900, L501.6710 #### [facility] [address] [place], [id number] Nucleated RBC (Bld) [#/Vol] 0 10*3/uL Normal 0-5 [facility] Comment on above: Performed By: #### M 200.1000, L509.7001, L101.9900, L501.6710 #### [facility] [address] [place], [id number] Platelet mean volume (Bld) [Entitic vol] 9.9 fL Normal 6.2-12.0 [facility] Comment on above: Performed By: #### M 200.1000, L509.7001, L101.9900, L501.6710 #### [facility] [address] [place], [id number] Platelets (Bld) [#/Vol] 252 10*3/uL Normal 150-450 [facility] Comment on above: Performed By: #### M 200.1000, L509.7001, L101.9900, L501.6710 #### [facility] [address] [place], [id number] RBC (Bld) [#/Vol] 4.58 10*6/uL Low 4.6-6.2 [facility] Comment on above: Performed By: #### M 200.1000, L509.7001, L101.9900, L501.6710 #### [facility] [address] [place], [id number] RDW SD 48.2 fl High 35.1-43.9 [facility] Comment on above: Performed By: #### M 200.1000, L509.7001, L101.9900, L501.6710 #### [facility] [address] [place], [id number] WBC (Bld) [#/Vol] 12.3 10*3/uL High 4.4-11.0 [facility] Comment on above: Performed By: #### M 200.1000, L509.7001, L101.9900, L501.6710 #### [facility] [address] [place], [id number] Prothrombin Time w/INRon INR Coag (PPP) [Relative time] 1.8 {INR} Normal [facility] Comment on above: Performed By: #### L 300.3900 #### [facility] [address] [place], [id number] PT Coag (PPP) [Time] 20.9 s High 11.7-14.9 [facility] Comment on above: Performed By: #### L 300.3900 #### [facility] [address] [place], [id number] Trough vancomycin levelOrder ed By: Marta Black on 09-03-2024 Vancomycin trough [Mass/Vol] 8.2 ug/mL 5.0-15.0 [facility] Comment on above: Recommended goal tro [...] therapy recommended for serious lifethreatening infections include:- Oazkakgfis-Mmfgjrzuvuga-Ylvgfrktp (Ventilator/Healtcare Associated)-Sepsis PLEASE CONTACT PHARMACY SERVICES (#[id number]) FOR INTERPRETATIONOF RESULTS. Vancomycin, Trough Levelon 0 09-03-2024 VANCO, TROUGH 8.2 ug/mL Normal 5.0-15.0 [facility] Comment on above: Order Comment: Comme nts: Trough to be drawn 30 mins prior to scheduled [id number] Result Comment: Ilya mmended goal trough ranges [...] (Ventilator/Healtcare Associated) -Sepsis PLEASE CONTACT PHARMACY SERVICES (#[id number]) FOR INTERPRETATION OF RESULTS. Performed By: #### M 200.1000, L509.7001, L101.9900, L501.6710 #### [facility] [address] [place], [address] Basic Metabolic Profile (BMP )on 09-02-2024 BUN/CRE 18.9 RATIO Normal 10-20 [facility] Comment on above: Performed By: #### M 200.1000, L509.7001, L101.9900, L501.6710 #### [facility] [address] [place], [address] Calcium [Mass/Vol] 8.5 mg/dL Normal 7.6-11.0 [facility] Comment on above: Performed By: #### M 200.1000, L509.7001, L101.9900, L501.6710 #### [facility] [address] [place], [address] Chloride [Moles/Vol] 105 mmol/L Normal 98-108 [facility] Comment on above: Performed By: #### M 200.1000, L509.7001, L101.9900, L501.6710 #### [facility] [address] [place], [address] CO2 [Moles/Vol] 14.2 mmol/L Low 21.0-32.0 [facility] Comment on above: Performed By: #### M 200.1000, L509.7001, L101.9900, L501.6710 #### [facility] [address] [place], [address] Creatinine [Mass/Vol] 0.75 mg/dL Normal 0.70-1.20 [facility] Comment on above: Performed By: #### M 200.1000, L509.7001, L101.9900, L501.6710 #### [facility] [address] [place], [address] ECRCL 64.10 ml/min Normal 50-250 [facility] Comment on above: Performed By: #### M 200.1000, L509.7001, L101.9900, L501.6710 #### [facility] [address] [place], [address] GAP 15 Normal 5-15 [facility] Comment on above: Performed By: #### M 200.1000, L509.7001, L101.9900, L501.6710 #### [facility] [address] [place], [address] GFR/1.73 sq M.predicted among non-blacks MDRD (S/P/Bld) [Vol rate/Area] 86 mL/min/{1.73_m2} Normal >60 [facility] Comment on above: Result Comment: mL/m in/1.73m2 CKD-EPI Creatinine Equation (2020) Performed By: #### M 200.1000, L509.7001, L101.9900, L501.6710 #### [facility] [address] [place], [address] Glucose [Mass/Vol] 105 mg/dL High 70-99 [facility] Comment on above: Performed By: #### M 200.1000, L509.7001, L101.9900, L501.6710 #### [facility] [address] [place], [address] Potassium [Moles/Vol] 4.3 mmol/L Normal 3.3-5.1 [facility] Comment on above: Result Comment: Hemo lysis present, Results??could be affected. ?? Performed By: #### M 200.1000, L509.7001, L101.9900, L501.6710 #### [facility] [address] [place], [address] Sodium [Moles/Vol] 135 mmol/L Normal 133-145 [facility] Comment on above: Performed By: #### M 200.1000, L509.7001, L101.9900, L501.6710 #### [facility] [address] [place], [id number] Urea nitrogen [Mass/Vol] 14 mg/dL Normal 4-19 [facility] Comment on above: Performed By: #### M 200.1000, L509.7001, L101.9900, L501.6710 #### [facility] [address] [place], [address] CBC W/Diff, Automatedon 06-03 25-2024 Absolute Lymph 0.52 X10 3/uL Low 0.83-4.51 [facility] Comment on above: Performed By: #### M 200.1000, L509.7001, L101.9900, L501.6710 #### [facility] [address] [place], [address] Absolute Neut 12.1 X10 3/uL High 2.0-7.7 [facility] Comment on above: Performed By: #### M 200.1000, L509.7001, L101.9900, L501.6710 #### [facility] [address] [place], [address] Basophils/100 WBC (Bld) 0.6 % Normal 0-1 [facility] Comment on above: Performed By: #### M 200.1000, L509.7001, L101.9900, L501.6710 #### [facility] [address] [place], [address] Eosinophils/100 WBC (Bld) 2.2 % Normal 0-5 [facility] Comment on above: Performed By: #### M 200.1000, L509.7001, L101.9900, L501.6710 #### [facility] [address] [place], [address] Erythrocyte distribution width (RBC) [Ratio] 17.8 % High 11.6-14.6 [facility] Comment on above: Performed By: #### M 200.1000, L509.7001, L101.9900, L501.6710 #### [facility] [address] [place], [address] Hematocrit (Bld) [Volume fraction] 39.9 % Low 40-54 [facility] Comment on above: Performed By: #### M 200.1000, L509.7001, L101.9900, L501.6710 #### [facility] [address] [place], [id number] Hemoglobin (Bld) [Mass/Vol] 11.9 g/dL Low 13.0-16.5 [facility] Comment on above: Performed By: #### M 200.1000, L509.7001, L101.9900, L501.6710 #### [facility] [address] [place], [address] IG% 0.700 Normal 0.0-0.9 [facility] Comment on above: Result Comment: IG% - Immature Granulocytes (promyelocytes, myelocytes and metamyelocytes) > 1% indicates that a LEFT SHIFT is Present. Performed By: #### M 200.1000, L509.7001, L101.9900, L501.6710 #### [facility] [address] [place], [id number] Lymphocytes/100 WBC (Bld) 3.8 % Low 19-41 [facility] Comment on above: Performed By: #### M 200.1000, L509.7001, L101.9900, L501.6710 #### [facility] [address] [place], [id number] MCH (RBC) [Entitic mass] 24.5 pg Low 27.0-32.0 [facility] Comment on above: Performed By: #### M 200.1000, L509.7001, L101.9900, L501.6710 #### [facility] [address] [place], [id number] MCHC (RBC) [Mass/Vol] 29.8 g/dL Low 32-36 [facility] Comment on above: Performed By: #### M 200.1000, L509.7001, L101.9900, L501.6710 #### [facility] [address] [place], [id number] MCV (RBC) [Entitic vol] 82.3 fL Normal 80-94 [facility] Comment on above: Performed By: #### M 200.1000, L509.7001, L101.9900, L501.6710 #### [facility] [address] [place], [id number] Monocytes/100 WBC (Bld) 4.8 % Normal 0-10 [facility] Comment on above: Performed By: #### M 200.1000, L509.7001, L101.9900, L501.6710 #### [facility] [address] [place], [id number] Neutrophils/100 WBC (Bld) 87.9 % High 47-70 [facility] Comment on above: Performed By: #### M 200.1000, L509.7001, L101.9900, L501.6710 #### [facility] [address] [place], [id number] Nucleated RBC (Bld) [#/Vol] 0 10*3/uL Normal 0-5 [facility] Comment on above: Performed By: #### M 200.1000, L509.7001, L101.9900, L501.6710 #### [facility] [address] [place], [address] Platelet mean volume (Bld) [Entitic vol] 10.6 fL Normal 6.2-12.0 [facility] Comment on above: Performed By: #### M 200.1000, L509.7001, L101.9900, L501.6710 #### [facility] [address] [place], [id number] Platelets (Bld) [#/Vol] 227 10*3/uL Normal 150-450 [facility] Comment on above: Performed By: #### M 200.1000, L509.7001, L101.9900, L501.6710 #### [facility] [address] [place], [id number] RBC (Bld) [#/Vol] 4.85 10*6/uL Normal 4.6-6.2 [facility] Comment on above: Performed By: #### M 200.1000, L509.7001, L101.9900, L501.6710 #### [facility] [address] [place], [id number] RDW SD 52.3 fl High 35.1-43.9 [facility] Comment on above: Performed By: #### M 200.1000, L509.7001, L101.9900, L501.6710 #### [facility] [address] [place], [id number] WBC (Bld) [#/Vol] 13.8 10*3/uL High 4.4-11.0 [facility] Comment on above: Performed By: #### M 200.1000, L509.7001, L101.9900, L501.6710 #### [facility] [address] [place], [id number] Prothrombin Time w/INRon INR Coag (PPP) [Relative time] 1.9 {INR} Normal [facility] Comment on above: Performed By: #### M 200.1000, L509.7001, L101.9900, L501.6710 #### [facility] [address] [place], [id number] PT Coag (PPP) [Time] 22.1 s High 11.7-14.9 [facility] Comment on above: Performed By: #### M 200.1000, L509.7001, L101.9900, L501.6710 #### [facility] [address] [place], [id number] RESPIRATORY PANEL MOLECULARo n 09-02-2024 RP PANEL ADENOVIRUS Not Detected INFLUENZA A Not Detected INFLUENZA A (SUBTYPE H1) Not Detected INFLUENZA A (SUBTYPE H3) Not Detected INFLUENZA B Not Detected HUMAN METAPHNEUMO Not Detected PARAINFLUENZA 1 Not Detected PARAINFLUENZA 2 Not Detected PARAINFLUENZA 3 Not Detected PARAINFLUENZA 4 Not Detected RHINOVIRUS Not Detected RSV A Not Detected RSV B Not Detected Normal [facility] Comment on above: Performed By: #### M 200.1000, L509.7001, L101.9900, L501.6710 #### [facility] [address] [place], [address] Absolute lymphocyte countOrd ered By: Inderjit Gillespie on 09-01-2024 Lymphocytes Auto (Unsp spec) [#/Vol] 0.62 10*3/uL Low 0.83-4.51 [facility] Absolute neutrophil countOrd ered By: Inderjit Gillespie on 09-01-2024 Neutrophils (Bld) [#/Vol] 11.3 10*3/uL High 2.0-7.7 [facility] Anion gap in Serum or Plasma Ordered By: Inderjit Gillespie on 09-01-2024 Anion gap [Moles/Vol] 10 mmol/L 5-15 [facility] Automated lymphocyte count a s percentage of total leukocytesOrdered By: Inderjit Gillespie on 09-01-2024 Lymphocytes/100 WBC Auto (Unsp spec) 4.8 % Low 19-41 [facility] BUN/creatinine ratioOrdered By: Inderjit Gillespie on 09-01-2024 Urea nitrogen/Creatinine [Mass ratio] 21.6 mg/mg High 10-20 [facility] Basic Metabolic Profile (BMP )on 09-01-2024 BUN/CRE 21.6 RATIO High - [facility] Comment on above: Performed By: #### M 200.1000, L509.7001, L101.9900, L501.6710 #### [facility] [address] [place], [address] Calcium [Mass/Vol] 8.8 mg/dL Normal 7.6-11.0 [facility] Comment on above: Performed By: #### M 200.1000, L509.7001, L101.9900, L501.6710 #### [facility] [address] [place], [id number] Chloride [Moles/Vol] 105 mmol/L Normal 98-108 [facility] Comment on above: Performed By: #### M 200.1000, L509.7001, L101.9900, L501.6710 #### [facility] [address] [place], [id number] CO2 [Moles/Vol] 24.3 mmol/L Normal 21.0-32.0 [facility] Comment on above: Performed By: #### M 200.1000, L509.7001, L101.9900, L501.6710 #### [facility] [address] [place], [id number] Creatinine [Mass/Vol] 0.77 mg/dL Normal 0.70-1.20 [facility] Comment on above: Performed By: #### M 200.1000, L509.7001, L101.9900, L501.6710 #### [facility] [address] [place], [id number] ECRCL 68.71 ml/min Normal 50-250 [facility] Comment on above: Performed By: #### M 200.1000, L509.7001, L101.9900, L501.6710 #### [facility] [address] [place], [id number] GAP 10 Normal 5-15 [facility] Comment on above: Performed By: #### M 200.1000, L509.7001, L101.9900, L501.6710 #### [facility] [address] [place], [id number] GFR/1.73 sq M.predicted among non-blacks MDRD (S/P/Bld) [Vol rate/Area] 86 mL/min/{1.73_m2} Normal >60 [facility] Comment on above: Result Comment: mL/m in/1.73m2 CKD-EPI Creatinine Equation (2020) Performed By: #### M 200.1000, L509.7001, L101.9900, L501.6710 #### [facility] [address] [place], [id number] Glucose [Mass/Vol] 112 mg/dL High 70-99 [facility] Comment on above: Performed By: #### M 200.1000, L509.7001, L101.9900, L501.6710 #### [facility] [address] [place], [id number] Potassium [Moles/Vol] 3.7 mmol/L Normal 3.3-5.1 [facility] Comment on above: Performed By: #### M 200.1000, L509.7001, L101.9900, L501.6710 #### [facility] [address] [place], [id number] Sodium [Moles/Vol] 139 mmol/L Normal 133-145 [facility] Comment on above: Performed By: #### M 200.1000, L509.7001, L101.9900, L501.6710 #### [facility] [address] [place], [id number] Urea nitrogen [Mass/Vol] 17 mg/dL Normal 4-19 [facility] Comment on above: Performed By: #### M 200.1000, L509.7001, L101.9900, L501.6710 #### [facility] [address] [place], [id number] Basophil percentageOrdered B y: Inderjit Gillespie on 09-01-2024 Basophils/100 WBC (Bld) 0.4 % 0-1 [facility] Bilirubin Test strip Ql (U)O rdered By: Inderjit Gillespie on 09-01-2024 Bilirubin Ql (U) Negative Negative [facility] Blood cultureOrdered By: Magnolia Black on 09-01-2024 Bacteria identified Cx Nom (Bld) No growth in 5 days. [facility] Brain/Head without Contrasto n 09-01-2024 Brain/Head without Contrast [facility] Imaging Services [address] [place] [id number] Brain/Head without Contrast MR#: [id number] Acct: [id number] Name: ROBY FLORES Rep #: [id number] : 1935 M 89 From: Jose harris MD PCP: Dr. Stas Mora MD Status: REG ER Study: Brain/Head without Contrast Date of Exam: 08/21 05/17 Exam# [id number] Ordering Dr: Inderjit Gillespie MD PROCEDURE: BRAIN/HEAD [...] of the left maxillary sinus. Reading Location: [place] [address] CC: Dr. Inderjit Gillespie MD; Dr. Stas Mora MD Measurement Supervisor: Signed Normal [facility] CBC W/Diff, Automatedon 08-21 Absolute Lymph 0.62 X10 3/uL Low 0.83-4.51 [facility] Comment on above: Performed By: #### M 200.1000, L509.7001, L101.9900, L501.6710 #### [facility] [address] [place], [id number] Absolute Neut 11.3 X10 3/uL High 2.0-7.7 [facility] Comment on above: Performed By: #### M 200.1000, L509.7001, L101.9900, L501.6710 #### [facility] [address] [place], [address] Basophils/100 WBC (Bld) 0.4 % Normal 0-1 [facility] Comment on above: Performed By: #### M 200.1000, L509.7001, L101.9900, L501.6710 #### [facility] [address] [place], [id number] Eosinophils/100 WBC (Bld) 1.2 % Normal 0-5 [facility] Comment on above: Performed By: #### M 200.1000, L509.7001, L101.9900, L501.6710 #### [facility] [address] [place], [id number] Erythrocyte distribution width (RBC) [Ratio] 17.2 % High 11.6-14.6 [facility] Comment on above: Performed By: #### M 200.1000, L509.7001, L101.9900, L501.6710 #### [facility] [address] [place], [id number] Hematocrit (Bld) [Volume fraction] 36.8 % Low 40-54 [facility] Comment on above: Performed By: #### M 200.1000, L509.7001, L101.9900, L501.6710 #### [facility] [address] [place], [id number] Hemoglobin (Bld) [Mass/Vol] 11.6 g/dL Low 13.0-16.5 [facility] Comment on above: Performed By: #### M 200.1000, L509.7001, L101.9900, L501.6710 #### [facility] [address] [place], [address] IG% 0.400 Normal 0.0-0.9 [facility] Comment on above: Result Comment: IG% - Immature Granulocytes (promyelocytes, myelocytes and metamyelocytes) > 1% indicates that a LEFT SHIFT is Present. Performed By: #### M 200.1000, L509.7001, L101.9900, L501.6710 #### [facility] [address] [place], [address] Lymphocytes/100 WBC (Bld) 4.8 % Low 19-41 [facility] Comment on above: Performed By: #### M 200.1000, L509.7001, L101.9900, L501.6710 #### [facility] [address] [place], [address] MCH (RBC) [Entitic mass] 24.6 pg Low 27.0-32.0 [facility] Comment on above: Performed By: #### M 200.1000, L509.7001, L101.9900, L501.6710 #### [facility] [address] [place], [address] MCHC (RBC) [Mass/Vol] 31.5 g/dL Low 32-36 [facility] Comment on above: Performed By: #### M 200.1000, L509.7001, L101.9900, L501.6710 #### [facility] [address] [place], [address] MCV (RBC) [Entitic vol] 78.0 fL Low 80-94 [facility] Comment on above: Performed By: #### M 200.1000, L509.7001, L101.9900, L501.6710 #### [facility] [address] [place], [address] Monocytes/100 WBC (Bld) 5.7 % Normal 0-10 [facility] Comment on above: Performed By: #### M 200.1000, L509.7001, L101.9900, L501.6710 #### [facility] [address] [place], [address] Neutrophils/100 WBC (Bld) 87.5 % High 47-70 [facility] Comment on above: Performed By: #### M 200.1000, L509.7001, L101.9900, L501.6710 #### [facility] [address] [place], [address] Nucleated RBC (Bld) [#/Vol] 0 10*3/uL Normal 0-5 [facility] Comment on above: Performed By: #### M 200.1000, L509.7001, L101.9900, L501.6710 #### [facility] [address] [place], [address] Platelet mean volume (Bld) [Entitic vol] 9.4 fL Normal 6.2-12.0 [facility] Comment on above: Performed By: #### M 200.1000, L509.7001, L101.9900, L501.6710 #### [facility] [address] [place], [address] Platelets (Bld) [#/Vol] 258 10*3/uL Normal 150-450 [facility] Comment on above: Performed By: #### M 200.1000, L509.7001, L101.9900, L501.6710 #### [facility] [address] [place], [address] RBC (Bld) [#/Vol] 4.72 10*6/uL Normal 4.6-6.2 [facility] Comment on above: Performed By: #### M 200.1000, L509.7001, L101.9900, L501.6710 #### [facility] [address] [place], [address] RDW SD 48.2 fl High 35.1-43.9 [facility] Comment on above: Performed By: #### M 200.1000, L509.7001, L101.9900, L501.6710 #### [facility] [address] [place], [address] WBC (Bld) [#/Vol] 12.9 10*3/uL High 4.4-11.0 [facility] Comment on above: Performed By: #### M 200.1000, L509.7001, L101.9900, L501.6710 #### [facility] [address] [place], [address] CNPNon 09-01-2024 CNPN Telephone (PHMEWO) ROBY FLORES ([id number]) 1935 M Date Time Provider Department 09/01/24 RUSSELL AGUAYO [facility] During your visit today, we recorded the following information about you: Russell Aguayo [facility] 09/01/2024 10:01 AM Signed PCP reached out [...] affordable alvarado using Good Rx coupons. At [facility] (his current pharmacy), he can get a 1 mo supply for ~$30. If he switches the prescription to [facility], he can get a 1 mo supply for ~$20. See coupons below. Rivastigmine patches are also available via GoodRx. It appears the cheapest option is through [facility], in which he can get 30 patches for $52. Coupon also below. Sending to PCP to review and provide patient with coupon card information. Russell Aguayo, YongD, BCPS Primary Care Clinical Pharmacist Memantine coupon at [facility] Memantine coupon at [facility] Rivastigmine patches coupon at [facility] Luciana Cisneros MD 09/01/2024 1:27 PM Signed Thanks Russell, Staff please let patient know what the pharmacist as opined on. 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 [place], [place], [address] COVID-19 virus antigen assay Ordered By: Marta Black on 09-01-2024 SARS-CoV-2 (COVID-19) Ag IA.rapid Ql (Resp) [facility] CRPon 09-01-2024 C-REACTIVE PROT 26.80 mg/L High 0.0-3.0 [facility] Comment on above: Performed By: #### M 200.1000, L509.7001, L101.9900, L501.6710 #### [facility] [address] [place], [address] Carbon dioxide, total [Moles /volume] in Central venous bloodOrdered By: Inderjit Gillespie on 09-01-2024 CO2 [Moles/Vol] 24.3 mmol/L 21.0-32.0 [facility] Chest 1 View (Portable)on Chest 1 View (Portable) [facility] Imaging Services [address] [place] [address] Chest 1 View (Portable) MR#: [id number] Acct: [id number] Name: ROBY FLORES Rep #: [id number] : 1935 M 89 From: Jose harris MD PCP: Dr. Stas Mora MD Status: REG ER Study: Chest 1 View (Portable) Date of Exam: 09/01/24 Exam# [id number] Ordering Dr: Inderjit Gillespie MD PROCEDURE: CHEST [...] No acute abnormality is seen. Reading Location: [facility] CC: Dr. Inderjit Gillespie MD; Dr. Stas Mora MD Measurement Supervisor: Signed Normal [facility] Chloride assayOrdered By: Aries Gillespie on 09-01-2024 Chloride [Moles/Vol] 105 mmol/L 98-108 [facility] Emergency Department Summary on 09-01-2024 Emergency Department Summary [facility] Medical Records Department [address] [place] [address] Emergency Department Summary 09/01/24 MR#: [id number] Acct: [id number] Name: ROBY FLORES Rep #: [id number] : 1935 89 From: Inderjit Gillespie MD [...] shoulders elbows and wrist. He has normal powder blender and pourer strength. Neurologically he is awake alert. Answering [...] Air 09/01/24 (more content not included)... Normal [facility] Eosinophil percentageOrdered By: Inderjit Gillespie on 09-01-2024 Eosinophils/100 WBC (Bld) 1.2 % 0-5 [facility] Erythrocyte Sed Rateon 09-01 SED RATE 2 mm/hr Normal 0-20 [facility] Comment on above: Performed By: #### M 200.1000, L509.7001, L101.9900, L501.6710 #### [facility] [address] [place], [address] Erythrocyte distribution wid th ratioOrdered By: Inderjit Gillespie on 09-01-2024 Erythrocyte distribution width (RBC) [Ratio] 17.2 % High 11.6-14.6 [facility] Erythrocyte distribution wid th standard deviationOrdered By: Inderjit Gillespie on 09-01-2024 Erythrocyte distribution width (RBC) [Ratio] 48.2 fl High 35.1-43.9 [facility] Erythrocyte sedimentation ra teOrdered By: aMrta Black on 09-01-2024 ESR (Bld) [Velocity] 2 mm/h 0- [facility] Glomerular filtration rate ( GFR) estimation/1.73 sq m using serum, plasma, or whole bOrdered By: Inderjit Gillespie on 09-01-2024 GFR/1.73 sq M.predicted among non-blacks MDRD (S/P/Bld) [Vol rate/Area] 86 mL/min/{1.73_m2} >60 [facility] Comment on above: mL/min/1.73m2 CKD-EP I Creatinine Equation (2020) H AND P Exam - [facility] 09-01-2024 H&P Exam - Hospitalist [facility] Medical Records Department [address] [place] [address] H P Exam - Hospitalist 09/01/24 1018 MR#: [id number] Acct: [id number] Name: ROBY FLORES Rep #: [id number] : 1935 89 From: Kathy Wells MD PCP: Dr. Stas Mora MD Status:ADM GERMAN Location: MS3 EC912-5 HPI - General General Date of Admission: 09/01/24 Date of Service: 09/01/24 Chief Complaint: mechanical fall HPI Annika FLORES, is a 89 M with a [...] in the ED were BP of 180/89, OR of 87, RR of 18 and temp [...] debility and weakness due to mechanical fall. [facility] Medical History Chronic anticoagulation TIA (transient [...] 99 Oxy (more content not included)... Normal [facility] Hematocrit Auto (Bld) [Volum e fraction]Ordered By: Inderjit Gillespie on 09-01-2024 Hematocrit (Bld) [Volume fraction] 36.8 % Low 40-54 [facility] Hemoglobin measurementOrdere d By: Inderjit Gillespie on 09-01-2024 Hemoglobin (Bld) [Mass/Vol] 11.6 g/dL Low 13.0-16.5 [facility] Hips B/L min 2 views w/ Pelv adolfo 09-01-2024 Hips B/L min 2 views w/ Pelvis [facility] Imaging Services [address] [place] [address] Hips B/L min 2 views w/ Pelvis MR#: [id number] Acct: [id number] Name: ROBY FLORES Rep #: [id number] :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 Mora MD Referring Family Medicine [phone] Roby Radha Flores is a 88 year [...] ALLERGIES No Known Allergies Indication for Warfarin: 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 Coretta Jalloh [facility] Clinical Pharmacist, Pharmacy Anticoagulation Clinic Pharmacy Anticoagulation Clinic Pager: [phone]. 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 [Z79.01]09/22/2016 Paroxysmal atrial fibrillation (HCC) [I48.0] 09/22/2016 Hyperlipidemia [E78.5] 08/26/2022 Encounter Status:Closed by CORETTA JALLOH on 04/27/24 Normal [facility] Cobalamin (Vitamin B12) [Mas s/Vol]on 04-27-2024 Interpretation and review of laboratory results Normal [facility] No Panel Informationon 04-27 [facility] PT panel Coag (PPP)on 2024 INR Coag (PPP) [Relative time] 2.6 {INR} High 0.9-1.3 [facility] Comment on above: Order Comment: Speci men Type: BLOOD SPECIMENOrdering Facility: [facility] Address: [facility] [place] [address] Result Comment: Mary min K Antagonist (VKA) Therapeutic Range: INR 2 to 3 (Target INR of 2.5) Note: For patients treated with VKA drugs, such as warfarin, the [employer] [employer] 2012 Guideline recommends [...] Chest 2012, 141:7S-47S Avel RA, et al. [facility] 2017, 70: 252-289 Performed By: #### 3 4528-0 ####[facility] [id number] [place] [address] [place] PT Coag (PPP) [Time] 25.2 s High <13.1 [facility] Comment on above: Order Comment: Stone parmar Type: BLOOD SPECIMENOrdering Facility: [facility] Address: [address] [place] [address] Performed By: #### 3 4528-0 ####[facility] [id number] [place] [address] [place] THYROID STIMULATING HORMONEo n 04-27-2024 TSH Qn 0.177 m[IU]/L Low [facility] TSH Qnon 04-27-2024 Interpretation and review of laboratory results Abnormal [facility] TSH SerPl-aCncon 04-27-2024 TSH Qn 0.177 m[IU]/L Low 0.270-4.20 0 [facility] Comment on above: Order Comment: Stone parmar Type: BLOOD SPECIMENOrdering Facility: [facility] Address: [address] [place] [address] Performed By: #### 2 132-9, 3016-3 ####[facility] LABCLIA [id number] [place] [address] [place] VITAMIN B12on 04-27-2024 Cobalamin (Vitamin B12) [Mass/Vol] 389 pg/mL 232 - 1245 pg/mL [facility] Vit B12 SerPl-mCncon 025 Cobalamin (Vitamin B12) [Mass/Vol] 389 pg/mL Normal 232-1245 [facility] Comment on above: Order Comment: Speci men Type: BLOOD SPECIMENOrdering Facility: [facility] Address: [address] [place] [address] Performed By: #### 2 132-9, 3016-3 ####[facility] LABCLIA [id number] [facility] [id number] [id number] 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 Gene 04-13-2024 CNPN Telephone (PHAMTE) SANDRAROBY Garcia ([id number]) 1935 M Date Time Provider Department 04/13/24 CORETTA JALLOH PHAMTE During your visit today, we recorded the following information about you: Coretta Jalloh [facility] 04/13/2024 11:15 AM Signed [facility] Ambulatory Pharmacy Anticoagulation Clinic Anticoagulation Episode Summary Anticoagulation Care Providers Provider Role Specialty Phone number Stas Mora MD Referring Family Medicine [phone] Roby Radha Flores is a 88 year [...] ALLERGIES No Known Allergies Indication for Warfarin: snf current use of 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 Coretta Jalloh [facility] Clinical Pharmacist, Pharmacy Anticoagulation Clinic Pharmacy Anticoagulation Clinic Pager: [phone]. 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 [Z79.01]09/22/2016 Paroxysmal atrial fibrillation (HCC) [I48.0] 09/22/2016 Hyperlipidemia [E78.5] 08/26/2022 Encounter Status:Closed by CORETTA JALLOH on 04/13/24 Normal [facility] PT panel Coag (PPP)on 2024 INR Coag (PPP) [Relative time] 3.2 {INR} High 0.9-1.3 [facility] Comment on above: Order Comment: Speci men Type: BLOOD SPECIMENOrdering Facility: [facility] Address: [address] [place] [address] Result Comment: Mary min K Antagonist (VKA) Therapeutic Range: INR 2 to 3 (Target INR of 2.5) Note: For patients treated with VKA drugs, such as warfarin, the [place] [employer] 2012 Guideline recommends [...] Chest 2012, 141:7S-47S Avel RA, et al. [facility] 2017, 70: 252-289 Performed By: #### 3 4528-0 ####[facility] [id number] [place] [address] [place] PT Coag (PPP) [Time] 31.2 s High <13.1 [facility] Comment on above: Order Comment: Speci men Type: BLOOD SPECIMENOrdering Facility: [facility] Address: [address] [place] [address] Performed By: #### 3 4528-0 ####[facility] [id number] [place] [address] [place] Gene 03-30-2024 SHEMARN Telephone (TIAE) ROBY FLORES ([id number]) 1935 M Date Time Provider Department 03/30/24 CORETTA JALLOH During your visit today, we recorded the following information about you: Coretta Jalloh [facility] 03/30/2024 9:57 AM Signed [facility] Ambulatory Pharmacy Anticoagulation Clinic Anticoagulation Episode Summary Anticoagulation Care Providers Provider Role Specialty Phone number Stas Mora MD Referring Family Medicine [phone] Roby Flores is a 88 year old [...] ALLERGIES No Known Allergies Indication for Warfarin: 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 Paroxysmal atrial fibrillation [...] Dosing As of 03/30/2024 Full warfarin instructions: 1/8: 1.25 mg; Otherwise 1.5 mg every Wed; [...] missed any doses of warfarin. Coretta Jalloh [facility] Clinical Pharmacist, Pharmacy Anticoagulation Clinic Pharmacy Anticoagulation Clinic Pager: [phone]. 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 snf current use of anticoagulant [Z79.01]09/22/2016 Paroxysmal atrial fibrillation (HCC) [I48.0] 09/22/2016 Hyperlipidemia [E78.5] 08/26/2022 Encounter Status:Closed by CORETTA JALLOH on 03/30/24 Normal [facility] PT panel Coag (PPP)on 2024 INR Coag (PPP) [Relative time] 3.5 {INR} High 0.9-1.3 [facility] Comment on above: Order Comment: Speci men Type: BLOOD SPECIMENOrdering Facility: [facility] Address: [address] [place] [address] Result Comment: Mary min K Antagonist (VKA) Therapeutic Range: INR 2 to 3 (Target INR of 2.5) Note: For patients treated with VKA drugs, such as warfarin, the [place] [employer] 2012 Guideline recommends [...] Chest 2012, 141:7S-47S Avel RA, et al. [facility] 2017, 70: 252-289 Performed By: #### 3 4528-0 ####[facility] [id number] [place] [address] [place] PT Coag (PPP) [Time] 33.4 s High <13.1 [facility] Comment on above: Order Comment: Speci men Type: BLOOD SPECIMENOrdering Facility: [facility] Address: [address] [place] [address] Performed By: #### 3 4528-0 ####[facility] FAULKNER [id number] [address] OF [facility] Gene 03-17-2024 CNPN Telephone (PHARAV) ROBY FLORES ([id number]) 1935 M Date Time Provider Department 03/17/24 JOSY GANDHI During your visit today, we recorded the following information about you: Josy Gandhi RPh 03/17/2024 9:38 AM Signed [facility] Ambulatory Pharmacy Anticoagulation Clinic Anticoagulation Episode Summary Anticoagulation Care Providers Provider Role Specialty Phone number Stas Mora MD Referring Family Medicine [phone] Rboyimelda Flores is a 88 year old year [...] ALLERGIES No Known Allergies Indication for Warfarin: 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 Josy Gandhi [facility] Clinical Pharmacist, Pharmacy Anticoagulation Clinic Pharmacy Anticoagulation Clinic Pager: [phone]. 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 snf current use of anticoagulant [Z79.01]09/22/2016 Paroxysmal atrial fibrillation (HCC) [I48.0] 09/22/2016 Hyperlipidemia [E78.5] 08/26/2022 Encounter Status:Closed by JOSY GANDHI on 03/17/24 Normal [facility] PT panel Coag (PPP)on 2023 INR Coag (PPP) [Relative time] 3.8 {INR} High 0.9-1.3 [facility] Comment on above: Order Comment: Speci men Type: BLOOD SPECIMENOrdering Facility: [facility] Address: [address] [place] [address] Result Comment: Mary min K Antagonist (VKA) Therapeutic Range: INR 2 to 3 (Target INR of 2.5) Note: For patients treated with VKA drugs, such as warfarin, the [place] [employer] 2012 Guideline recommends [...] 70: 252-289 Performed By: #### 3 4528-0 ####[facility] [id number] [place] [address] [place] PT Coag (PPP) [Time] 36.4 s High <13.1 [facility] Comment on above: Order Comment: Speci men Type: BLOOD SPECIMENOrdering Facility: [facility] Address: [address] [place] [address] Performed By: #### 3 4528-0 ####[facility] [id number] [place] [address] [place] Gene 03-03-2024 MICHELINE Telephone (PHAMTE) ROBY FLORES ([id number]) 1935 M Date Time Provider Department 03/03/24 ELISE PAREDES During your visit today, we recorded the following information about you: Elise Paredes, [facility] 03/03/2024 9:40 AM Signed [facility] Ambulatory Pharmacy Anticoagulation Clinic Anticoagulation Episode Summary Anticoagulation Care Providers Provider Role Specialty Phone number Stas Mora MD Referring Family Medicine [phone] Roby Flores is a 88 year old [...] ALLERGIES No Known Allergies Indication for Warfarin: snf current use of 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 Elise Paredes [facility] Clinical Pharmacist, Pharmacy Anticoagulation Clinic Pharmacy Anticoagulation Clinic Pager: [phone]. 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 Normal [facility] PT panel Coag (PPP)on 2023 INR Coag (PPP) [Relative time] 3.6 {INR} High 0.9-1.3 [facility] Comment on above: Order Comment: Speci men Type: BLOOD SPECIMENOrdering Facility: [facility] Address: [address] [place], [place] [id number] Result Comment: Mary min K Antagonist (VKA) Therapeutic Range: INR 2 to 3 (Target INR of 2.5) Note: For patients treated with VKA drugs, such as warfarin, the [place] [employer] 2012 Guideline recommends [...] Chest 2012, 141:7S-47S Avel CARDONA et al. [facility] 2017, 70: 252-289 Performed By: #### 3 4528-0 ####[facility] [id number] [place] [address] [place] PT Coag (PPP) [Time] 35.1 s High <13.1 [facility] Comment on above: Order Comment: Speci men Type: BLOOD SPECIMENOrdering Facility: [facility] Address: [facility] [place] [address] Performed By: #### 3 4528-0 ####[facility]ITAL[facility] [id number] [place] [address] [place] CNPNon 02-10-2024 CNPN Telephone (PHAMTE) ROBY FLORES ([id number]) 1935 M Date Time Provider Department 02/10/24 CORETTA JALLOH During your visit today, we recorded the following information about you: Coretta Jalloh RPh 02/10/2024 9:12 AM Signed [facility] Ambulatory Pharmacy Anticoagulation Clinic Anticoagulation Episode Summary Anticoagulation Care Providers Provider Role Specialty Phone number Stas Mora MD Referring Family Medicine [phone] Roby Martinezenter is a 88 year old [...] ALLERGIES No Known Allergies Indication for Warfarin: snf current use of anticoagulant Paroxysmal atrial fibrillation [...] Pharmacy Anticoagulation Clinic Pharmacy Anticoagulation Clinic Pager: [phone]. Coretta Jalloh RPh 02/24/2024 3:53 PM Signed Patient was due to test INR today at the lab - will continue to monitor for results. 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 snf current use of anticoagulant [Z79.01]09/22/2016 Paroxysmal atrial fibrillation (HCC) [I48.0] 09/22/2016 Hyperlipidemia [E78.5] 08/26/2022 Encounter Status:Closed by CORETTA JALLOH on 02/10/24 Normal [facility] PT panel Coag (PPP)on 2023 INR Coag (PPP) [Relative time] 3.3 {INR} High 0.9-1.3 [facility] Comment on above: Order Comment: Stone parmar Type: BLOOD SPECIMENOrdering Facility: [facility] Address: [address] [place] [id number] Result Comment: Mary min K Antagonist (VKA) Therapeutic Range: INR 2 to 3 (Target INR of 2.5) Note: For patients treated with VKA drugs, such as warfarin, the [place] [employer] 2012 Guideline recommends [...] Chest 2012, 141:7S-47S Avel RA, et al. [facility] 2017, 70: 252-289 Performed By: #### 3 4528-0 ####[facility] [id number] [place] [address] [place] PT Coag (PPP) [Time] 31.4 s High <13.1 [facility] Comment on above: Order Comment: Stone parmar Type: BLOOD SPECIMENOrdering Facility: [facility] Address: [address] [place] [address] Performed By: #### 3 4528-0 ####[facility] [id number] [address] [place] Gene 01-20-2024 SHEMARN Telephone ([facility]) ROBY FLORES ([id number]) 1935 M Date Time Provider Department 01/20/24 CORETTA JALLOH During your visit today, we recorded the following information about you: Coretta Jalloh [facility] 01/20/2024 10:25 AM Signed [facility] Ambulatory Pharmacy Anticoagulation Clinic Anticoagulation Episode Summary Anticoagulation Care Providers Provider Role Specialty Phone number Stas Mora MD Referring Family Medicine [phone] Roby Flores is a 88 year old [...] ALLERGIES No Known Allergies Indication for Warfarin: 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 Coretta Jalloh [facility] Clinical Pharmacist, Pharmacy Anticoagulation Clinic Pharmacy Anticoagulation Clinic Pager: [phone]. 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 snf current use of anticoagulant [Z79.01]09/22/2016 Paroxysmal atrial fibrillation (HCC) [I48.0] 09/22/2016 Hyperlipidemia [E78.5] 08/26/2022 Encounter Status:Closed by CORETTA JALLOH on 01/20/24 Normal [facility] PT panel Coag (PPP)on 2023 INR Coag (PPP) [Relative time] 3.4 {INR} High 0.9-1.3 [facility] Comment on above: Order Comment: Speci men Type: BLOOD SPECIMENOrdering Facility: [facility] Address: [address] [place] [address] Result Comment: Mary min K Antagonist (VKA) Therapeutic Range: INR 2 to 3 (Target INR of 2.5) Note: For patients treated with VKA drugs, such as warfarin, the [place] [employer] 2012 Guideline recommends [...] GH, et al. Chest 2012, 141:7S-47S Avel CARDONA et al. [facility] 2017, 70: 252-289 Performed By: #### 3 4528-0 ####[facility] [id number] [place] [address] [place] PT Coag (PPP) [Time] 31.8 s High <13.1 [facility] Comment on above: Order Comment: Speci men Type: BLOOD SPECIMENOrdering Facility: [facility] Address: [address] [place] [address] Performed By: #### 3 4528-0 ####[facility]OSPITALR[facility] [id number] [address] [place] [facility] 01-04-2024 [facility] (FAM[facility] ROBY FLORES ([id number]) 1935 M Date Time Provider Department 01/04/24 [facility] During your visit today, we recorded [...] rx needs completed. Please advise Jenna Fitzpatrick APRN.SHEMAR 01/04/2024 10:42 AM Signed The following approved medication requests have been transmitted electronically. Requested Prescriptions Signed Prescriptions Disp Refills warfarin (COUMADIN) 3 mg tablet 30 tablet 11 Sig: Take 1 tablet by mouth daily as directed. 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 Encounter Status:Closed by JENNA FITZPATRICK on 01/04/24 [facility] ([facility] ROBY FLORES ([id number]) 1935 M Date Time Provider Department 12/24/23 ELISE PAREDES PHAMAHENDRA During your visit today, we recorded the following information about you: Elise Paredes, [facility] 12/24/2023 2:32 PM Signed [facility] Ambulatory Pharmacy Anticoagulation Clinic Anticoagulation Episode Summary Anticoagulation Care Providers Provider Role Specialty Phone number Stas Mora MD Referring Family Medicine [phone] Roby Flores is a 88 year old [...] ALLERGIES No Known Allergies Indication for Warfarin: snf current use of anticoagulant Paroxysmal atrial fibrillation (hcc) Anticoagulation Episode Summary Current INR goal: 2.0-3.0 Assessment: INR result of 2.2 is therapeutic Plan: Current Warfarin Dosing As of 12/24/2023 Full warfarin instructions: 2.5 mg every Sun; 3 mg all other days Left voice message Advised patient to continue current weekly dose as noted above Next lab INR check scheduled on 01/21/2024 Elise Paredes [facility] Clinical Pharmacist, Pharmacy Anticoagulation Clinic Pharmacy Anticoagulation Clinic Pager: [phone]. 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 [Z79.01]09/22/2016 Paroxysmal atrial fibrillation (HCC) [I48.0] 09/22/2016 Hyperlipidemia [E78.5] 08/26/2022 Encounter Status:Closed by ELISE PAREDES on 12/24/23 Normal [facility] PT panel Coag (PPP)on 2023 INR Coag (PPP) [Relative time] 2.2 {INR} High 0.9-1.3 [facility] Comment on above: Order Comment: Stone parmar Type: BLOOD SPECIMENOrdering Facility: [facility] Address: [address] [place] [address] Result Comment: Mary min K Antagonist (VKA) Therapeutic Range: INR 2 to 3 (Target INR of 2.5) Note: For patients treated with VKA drugs, such as warfarin, the [employer] 2012 Guideline recommends [...] Chest 2012, 141:7S-47S Avel RA, et al. [facility] 2017, 70: 252-289 Performed By: #### 3 4528-0 ####[facility] LABCLIA [id number] [place] [address] [place] PT Coag (PPP) [Time] 22.1 s High 9.7-13.0 [facility] Comment on above: Order Comment: Speci men Type: BLOOD SPECIMENOrdering Facility: [facility] Address: [address], [place] [address] Performed By: #### 3 4528-0 ####[facility] LABJOHN [id number] [address] [id number] [id number] [place] CNPMarizol 12-10-2023 CNP[facility] Telephone (PHAMTE) ROBY FLORES ([id number]) 1935 M Date Time Provider Department 12/10/23 ELISE PAREDES PHAMAHENDRA During your visit today, we recorded the following information about you: [facility] 2:21 PM Signed [facility] Ambulatory Pharmacy Anticoagulation Clinic Anticoagulation Episode Summary Anticoagulation Care Providers Provider Role Specialty Phone number Stas Mora MD Referring Family Medicine [phone] Roby Garcia Sandra is a 88 year [...] ALLERGIES No Known Allergies Indication for Warfarin: 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 Paroxysmal atrial fibrillation (hcc) Anticoagulation Episode Summary Current INR goal: 2.0-3.0 Assessment: INR result of 1.9 is SUBtherapeutic due to: unknown cause - did not speak to patient Plan: Current Warfarin Dosing As of 12/10/2023 Full warfarin instructions: 2.5 mg every Sun; 3 mg all other days Left voice message for Gabby at [phone] (home) Advised patient to increase total weekly regimen Next lab INR check scheduled on 12/24/2023 Elise Paredes [facility] Clinical Pharmacist, Pharmacy Anticoagulation Clinic Pharmacy Anticoagulation Clinic Pager: [phone]. 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 snf current use of anticoagulant [Z79.01]09/22/2016 Paroxysmal atrial fibrillation (HCC) [I48.0] 09/22/2016 Hyperlipidemia [E78.5] 08/26/2022 Encounter Status:Closed by ELISE PAREDES on 12/10/23 Normal [facility] PT panel Coag (PPP)on 2023 INR Coag (PPP) [Relative time] 1.9 {INR} High 0.9-1.3 [facility] Comment on above: Order Comment: Speci men Type: BLOOD SPECIMENOrdering Facility: [facility] Address: [address] [place] [address] Result Comment: Mary min K Antagonist (VKA) Therapeutic Range: INR 2 to 3 (Target INR of 2.5) Note: For patients treated with VKA drugs, such as warfarin, the [employer] 2012 Guideline recommends [...] 70: 252-289 Performed By: #### 3 4528-0 ####[facility] LABCLIA [id number] [place] [id number] [place] PT Coag (PPP) [Time] 18.8 s High 9.7-13.0 [facility] Comment on above: Order Comment: Speci men Type: BLOOD SPECIMENOrdering Facility: [facility] Address: [facility] [place] [address] Performed By: #### 3 4528-0 ####[facility] LABCLIA [id number] [place] [id number] [facility] [place] CNOVon 11-26-2023 CNOV Office Visit (VISHWS ) SANDRAROBY Garcia ([id number]) 1935 M Date Time Provider Department 11/26/23 [...] Coronary atherosclerosis of unspecified type of vessel, [place] or graft Comment: Coronary artery disease No [...] 11/22/2023 Influ (more content not included)... [facility] Telephone (DARIENMDE) ROBY FLORES ([id number]) 1935 M Date Time Provider Department 11/26/23 ELISE PAREDES During your visit today, we recorded the following information about you: Elise Paredes, [facility] 11/26/2023 4:23 PM Signed [facility] Pharmacy Anticoagulation Clinic Anticoagulation Episode Summary Anticoagulation Care Providers Provider Role Specialty Phone number Stas Mora MD Referring Family Medicine [phone] Roby Flores is a 88 year old [...] ALLERGIES No Known Allergies Indication for Warfarin: 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 Paroxysmal atrial fibrillation [...] call PAC to discuss further Elise Paredes [facility] Clinical Pharmacist, Pharmacy Anticoagulation Clinic Pharmacy Anticoagulation Clinic Pager: [phone]. Satish (Media Manager)Parmjit 11/26/2023 4:30 PM Signed Patient's spouse called regarding message. Patient typically takes warfarin in the morning but did not take any today. Patient's spouse doesn't understand why its low all the sudden. Denies changes in medication/ diet or missed doses. 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 Elise Paredes [facility] Clinical Pharmacist, Pharmacy Anticoagulation Clinic Pharmacy Anticoagulation Clinic Pager: [phone]. 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 Normal [facility] PT panel Coag (PPP)on 2023 INR Coag (PPP) [Relative time] 1.5 {INR} High 0.9-1.3 [facility] Comment on above: Order Comment: Speci men Type: BLOOD SPECIMENOrdering Facility: [facility] Address: [address] [place], [place] [id number] Result Comment: Mary min K Antagonist (VKA) Therapeutic Range: INR 2 to 3 (Target INR of 2.5) Note: For patients treated with VKA drugs, such as warfarin, the [place] [employer] 2012 Guideline recommends [...] Chest 2012, 141:7S-47S Avel RA, et al. [facility] 2017, 70: 252-289 Performed By: #### 3 4528-0 ####[facility] [id number] [place] [address] [place] PT Coag (PPP) [Time] 15.1 s High 9.7-13.0 [facility] Comment on above: Order Comment: Speci men Type: BLOOD SPECIMENOrdering Facility: [facility] Address: [address] [place] [address] Performed By: #### 3 4528-0 ####[facility] LABIA [id number] [address] [place] CNPNon 11-18-2023 CNPN Telephone (PHAMTE) ROBY FLORES ([id number]) 1935 M Date Time Provider Department 11/18/23 CORETTA JALLOH During your visit today, we recorded the following information about you: Coretta Jalloh [facility] 11/18/2023 4:37 PM Signed [facility] Ambulatory Pharmacy Anticoagulation Clinic Anticoagulation Episode Summary Anticoagulation Care Providers Provider Role Specialty Phone number Stas Mora MD Referring Family Medicine [phone] Roby Martinezenter is a 88 year old [...] ALLERGIES No Known Allergies Indication for Warfarin: 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 Paroxysmal atrial fibrillation [...] Patient denies need for refills. Coretta Jalloh [facility] Clinical Pharmacist, Pharmacy Anticoagulation Clinic Pharmacy Anticoagulation Clinic Pager: [phone]. 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 snf current use of anticoagulant [Z79.01]09/22/2016 Paroxysmal atrial fibrillation (HCC) [I48.0] 09/22/2016 Hyperlipidemia [E78.5] 08/26/2022 Encounter Status:Closed by CORETTA JALLOH on 11/18/23 Normal [facility] PT panel Coag (PPP)on 2023 INR Coag (PPP) [Relative time] 1.8 {INR} High 0.9-1.3 [facility] Comment on above: Order Comment: Speci men Type: BLOOD SPECIMENOrdering Facility: [facility] Address: [address] [place] [address] Result Comment: Mary min K Antagonist (VKA) Therapeutic Range: INR 2 to 3 (Target INR of 2.5) Note: For patients treated with VKA drugs, such as warfarin, the [employer] [employer] 2012 Guideline recommends [...] Chest 2012, 141:7S-47S Avel RA, et al. [facility] 2017, 70: 252-289 Performed By: #### 3 4528-0 ####[facility] [id number] [place] [address] [place] PT Coag (PPP) [Time] 18.6 s High 9.7-13.0 [facility] Comment on above: Order Comment: Speci men Type: BLOOD SPECIMENOrdering Facility: [facility] Address: [address] [place] [address] Performed By: #### 3 4528-0 ####[facility] [id number] [address] [place] CBC W Auto Differential pane l (Bld)on 06-04-2023 Basophils (Bld) [#/Vol] 0.06 10*3/uL <0.11 k/uL [facility] Basophils/100 WBC (Bld) 0.9 % [facility] Differential cell count method Nom (Bld) Auto [facility] Eosinophils (Bld) [#/Vol] 0.16 10*3/uL <0.46 k/uL [facility] Eosinophils/100 WBC (Bld) 2.4 % [facility] Erythrocyte distribution width (RBC) [Ratio] 15.7 % High 11.5 - 15.0 % [facility] Hematocrit (Bld) [Volume fraction] 34.9 % Low 39.0 - 51.0 % [facility] Hemoglobin (Bld) [Mass/Vol] 10.0 g/dL Low 13.0 - 17.0 g/dL [facility] Immature granulocytes (Bld) [#/Vol] <0.10 k/uL [facility] Immature granulocytes/100 WBC (Bld) 0.3 % [facility] Lymphocytes (Bld) [#/Vol] 1.65 10*3/uL 1.00 - 4.00 k/uL [facility] Lymphocytes/100 WBC (Bld) 24.8 % [facility] MCH (RBC) [Entitic mass] 20.9 pg Low 26.0 - 34.0 pg [facility] MCHC (RBC) [Mass/Vol] 28.7 g/dL Low 30.5 - 36.0 g/dL [facility] MCV (RBC) [Entitic vol] 73.0 fL Low 80.0 - 100.0 fL [facility] Monocytes (Bld) [#/Vol] 0.61 10*3/uL <0.87 k/uL [facility] Monocytes/100 WBC (Bld) 9.2 % [facility] Neutrophils (Bld) [#/Vol] 4.16 10*3/uL 1.45 - 7.50 k/uL [facility] Neutrophils/100 WBC (Bld) 62.4 % [facility] Nucleated RBC (Bld) [#/Vol] <0.01 k/uL [facility] Nucleated RBC/100 WBC (Bld) [Ratio] 0.0 /100 WBC [facility] Platelet mean volume (Bld) [Entitic vol] 10.7 fL 9.0 - 12.7 fL [facility] Platelets (Bld) [#/Vol] 297 10*3/uL 150 - 400 k/uL [facility] RBC (Bld) [#/Vol] 4.78 10*6/uL 4.20 - 6.00 m/uL [facility] WBC (Bld) [#/Vol] 6.66 10*3/uL 3.70 - 11.00 k/uL [facility] MRI BRAIN WO IVCONon 02-17- 023 [facility] Absolute lymphocyte countOrd ered By: Brian Cunningham on 02-10-2023 Lymphocytes Auto (Unsp spec) [#/Vol] 0.99 10*3/uL 0.83-4.51 [facility] Basophil percentageOrdered B y: Brian Cunningham on 02-10-2023 Basophil percentage 0-5 SEEN /hpf 0-5 [facility] Basophils/100 WBC (Bld) 0.8 % 0-1 [facility] Chloride [Moles/Vol] 108 mmol/L 98-107 [facility] Eosinophils/100 WBC (Bld) 0.4 % 0-5 [facility] Glucose [Mass/Vol] 117 mg/dL 74-106 [facility] Comment on above: Fasting Glucose resu lt from 100 to 125 mg/dL suggests IMPAIRED HOMEOSTASIS per A.D.A. criteria. Neutrophils (Bld) [#/Vol] 5.8 10*3/uL 2.0-7.7 [facility] Neutrophils/100 WBC (Bld) 77.9 % 47-70 [facility] Potassium [Moles/Vol] 4.0 mmol/L 3.5-5.1 [facility] Sodium [Moles/Vol] 140 mmol/L 136-145 [facility] WBC (Bld) [#/Vol] 7.5 10*3/uL 4.4-11.0 [facility] Bilirubin Test strip Ql (U)O rdered By: Brian Cunningham on 02-10-2023 Bilirubin Ql (U) 1 mg/dL Negative [facility] Comment on above: COLOR OF URINE MAY A FFECT DIPSTICK RESULTS. Blood erythrocytes count (nu mber/volume)Ordered By: Brian Cunningham on 02-10-2023 RBC (Bld) [#/Vol] 4.42 10*6/uL 4.6-6.2 [facility] Blood hemoglobin measurement (mass/volume)Ordered By: Brian Cunningham on 02-10-2023 Hemoglobin (Bld) [Mass/Vol] 10.6 g/dL 13.0-16.5 [facility] Blood lymphocytes/100 leukoc ytesOrdered By: Brian Cunningham on 02-10-2023 Lymphocytes/100 WBC (Bld) 13.3 % 19-41 [facility] Blood monocytes/100 leukocyt esOrdered By: Brian Cunningham on 02-10-2023 Monocytes/100 WBC (Bld) 7.2 % 0-10 [facility] Blood platelet mean volumeOr dered By: Brian Cunningham on 02-10-2023 Platelet mean volume (Bld) [Entitic vol] 9.9 fL 6.2-12.0 [facility] Determination of erythrocyte mean corpuscular volume (MCV)Ordered By: Brian Cunningham on 02-10-2023 MCV (RBC) [Entitic vol] 81.9 fL 80-94 [facility] Hematocrit Auto (Bld) [Volum e fraction]Ordered By: Brian Cunningham on 02-10-2023 Hematocrit (Bld) [Volume fraction] 36.2 % 40-54 [facility] INR in Blood by Coagulation assayOrdered By: Brian Cunningham on 02-10-2023 INR Coag (Bld) [Relative time] 1.2 {INR} [facility] Influenza virus A and B and SARS-CoV-2 (COVID-19) Ag panel - Upper respiratory specimOrdered By: Brian Cunningham on 02-10-2023 SARS-CoV-2 (COVID-19) RNA LOLI+probe Ql (Resp) [facility] Ketones Test strip Ql (U)Ord ered By: Brian Cunningham on 02-10-2023 Ketones Ql (U) 5 mg/dl Negative [facility] Laboratory - Chemistry and C hemistry - challengeOrdered By: Brian Cunningham on 02-10-2023 CO2 [Moles/Vol] 30.0 mmol/L 21.0-32.0 [facility] Urea nitrogen/Creatinine [Mass ratio] 23.8 mg/mg 10-20 [facility] Laboratory - CoagulationOrde red By: Brian Cunningham on 02-10-2023 aPTT Coag (Bld) [Time] 26.3 s 24.1-36.2 [facility] PT Coag (PPP) [Time] 15.6 s 11.7-14.9 [facility] Laboratory - Hematology and Cell countsOrdered By: Brian Cunningham on 02-10-2023 Erythrocyte distribution width (RBC) [Entitic vol] 41.8 fL 35.1-43.9 [facility] Erythrocyte distribution width (RBC) [Ratio] 14.1 % 11.6-14.6 [facility] Immature granulocytes/100 WBC (Bld) 0.400 % 0.0-0.9 [facility] Comment on above: IG% - Immature Granu locytes (promyelocytes, myelocytes and metamyelocytes) > 1% indicates that a LEFT SHIFT is Present. MCH (RBC) [Entitic mass] 24.0 pg 27.0-32.0 [facility] Nucleated RBC/100 WBC (Bld) [Ratio] 0 % 0-5 [facility] MCHC Auto (RBC) [Mass/Vol]Or dered By: Brian Cunningham on 02-10-2023 MCHC (RBC) [Mass/Vol] 29.3 g/dL 32-36 [facility] Mucus LM Ql (Urine sed)Order ed By: Brian Cunningham on 02-10-2023 Mucus Ql (Urine sed) 0 SEEN /hpf [facility] Nitrite Test strip Ql (U)Ord ered By: Brian Cunningham on 02-10-2023 Nitrite Ql (U) Negative Negative [facility] No Panel InformationOrdered By: Brian Cunningham on 02-10-2023 Estimated Creatinine Clearance Calc 68.37 ml/min [facility] Estimated GFR (MDRD) Amer 118 mL/min >60 [facility] Comment on above: GFR Calc Estimated GFR (MDRD) Non-Af Amer 97 mL/min >60 [facility] Comment on above: Non- GFR Calc Troponin I High Sensitivity 16 pg/mL 3.0-78.0 [facility] Comment on above: Please Note: New [place] t Units and Gender Specific Reference Ranges. For more information see Policy Stat Procedure [place] High Sensitivity Troponin (TNIH) and attachments. Platelets bldOrdered By: Caitlyn Cunningham on 02-10-2023 Platelets (Bld) [#/Vol] 328 10*3/uL 150-450 [facility] Protein Test strip Ql (U)Ord ered By: Brian Cunningham on 02-10-2023 Protein Ql (U) 15 mg/dl Negative [facility] Serum or plasma calcium alvaro urement (mass/volume)Ordered By: Brian Cunningham on 02-10-2023 Calcium [Mass/Vol] 8.9 mg/dL 8.5-10.1 [facility] Serum or plasma creatinine m easurement (mass/volume)Ordered By: Brian Cunningham on 02-10-2023 Creatinine [Mass/Vol] 0.80 mg/dL 0.70-1.30 [facility] Comment on above: The validity of the calculated GFR & GFRAA in patients over 70 years has not been determined. Clinical correlation is essential. Serum or plasma urea nitroge n measurement (mass/volume)Ordered By: Brian Cunningham on 02-10-2023 Urea nitrogen [Mass/Vol] 19 mg/dL 7-18 [facility] Squamous epithelial cells de tection in urine sediment by light microscopyOrdered By: Brian Cunningham on 02-10-2023 Epithelial cells.squamous LM Ql (Urine sed) 0 SEEN /hpf 0-5 [facility] Thin prep Papanicolaou smear with manual screeningOrdered By: Brian Cunningham on 02-10-2023 Thin prep Papanicolaou smear with manual screening 2 5-15 [facility] Urine blood detectionOrdered By: Brian Cunningham on 02-10-2023 RBC Ql (U) Negative Negative [facility] RBC Ql (U) 0 SEEN /hpf 0-5 [facility] Urine clarityOrdered By: Caitlyn Cunningham on 02-10-2023 Clarity (U) Clear Clear [facility] Urine color determinationOrd ered By: Brian Cunningham on 02-10-2023 Color (U) Yellow Yellow [facility] Urine glucose detectionOrder ed By: Brian Cunningham on 02-10-2023 Glucose Ql (U) Normal mg/dl Normal [facility] Urine leukocyte esterase det ection by dipstickOrdered By: Brian Cunningham on 02-10-2023 Leukocyte esterase Test strip Ql (U) 25 /ul Negative [facility] Urine pHOrdered By: Brian swain on 02-10-2023 pH (U) 6.5 [pH] 5.0 - 8.0 [facility] Urine sediment bacteria coun t by microscopy (number/high power field)Ordered By: Brian Cunningham on 02-10-2023 Bacteria LM.HPF (Urine sed) [#/Area] 0 /[HPF] None Seen [facility] Urine specific gravity measu rementOrdered By: Brian Cunningham on 02-10-2023 Specific gravity (U) [Rel density] 1.015 1.002-1.03 0 [facility] Urobilinogen Auto test strip Ql (U)Ordered By: Brian Cunningham on 02-10-2023 Urobilinogen Ql (U) 4 mg/dl Normal [facility] CT HEAD OR BRAIN W/O [...] Date: 11/17/2022 4:26:20 PM [facility]ing [facility] Pelvis and Hip - left AP and Lateral frogon 05-21-2022 IMPRESSION: No acute fracture or hip dislocation Measurement Supervisor: EDUAR Transcribe Date/Time: May 21 2022 3:41P Dictated by : JUDY MCKENZIE MD This examination was interpreted and the report reviewed and electronically signed by: JUDY MCKENZIE MD on May 21 2022 3:43PM [facility] DIVISION OF RADIOLOGY * * [...] Small acetabular osteophytes. DIVISION OF RADIOLOGY [facility]22 * * *Final Report* [...] IMPRESSION: No acute fracture or hip dislocation Measurement Supervisor: [facility] Transcribe Date/Time: May 21 2022 3:41P Dictated by : JUDY MCKENZIE MD This examination was interpreted and the report reviewed and electronically signed by: JUDY MCKENZIE MD on May 21 2022 3:43PM EST [facility] Radiology Study observation (narrative) [facility] XR Pelvis and Hip - left AP and Lateral frogOrdered By: Ccf Provider on 05-21-2022 [facility] PT panel Coag (PPP)on 2022 INR Coag (Bld) [Relative time] 1.7 {INR} [facility] Basophil percentageon 2021 Cholesterol [Mass/Vol] 152 mg/dL <200 [facility] Work Phone: Comment on above: <200 mg/dL Desirable 200-240 mg/dL Borderline >240 mg/dL High Risk Triglyceride [Mass/Vol] 76 mg/dL <199 [facility] Work Phone: Comment on above: The drugs N-Acetylcy steine and Metamizole may falsely depress this assay.Serum Triglycerides Reference Interval Normal <150 mg/dL Borderline high 150 - 199 mg/dL High 200 - 499 mg/dL Very High > or = 500 mg/dL INR in Blood by Coagulation assayon 12-22-2021 INR Coag (Bld) [Relative time] 2.5 {INR} [facility] Work Phone: Laboratory - Chemistry and C hemistry - challengeon 12-22-2021 Magnesium [Mass/Vol] 2.1 mg/dL 1.6-2.6 [facility] Work Phone: Laboratory - Coagulationon 1 PT Coag (PPP) [Time] 27.0 s 11.7-14.9 [facility] Work Phone: No Panel Informationon 12-22 Thyroid Stimulating Hormone (TSH) 0.42 uIU/mL 0.358-3.74 [facility] Work Phone: Serum or plasma cholesterol in HDL measurement (mass/volume)on 12-22-2021 Cholesterol in HDL [Mass/Vol] 35 mg/dL >40 [facility] Work Phone: Comment on above: The drugs N-Acetylcy steine and Metamizole may falsely depress this assay. Reference Range HDL <40 mg/dL Low HDL Cholesterol HDL >or= 60 mg/dL High HDL Cholesterol Serum or plasma cholesterol in VLDL measurement (mass/volume)on 12-22-2021 Cholesterol in VLDL [Mass/Vol] 15 mg/dL 5-40 [facility] Work Phone: Serum or plasma low density lipoprotein (LDL) cholesterol measurement (mass/volume)on 12-22-2021 Cholesterol in LDL [Mass/Vol] 102 mg/dL 0-130 [facility] Work Phone: Whole blood hemoglobin A1c/t otal hemoglobin ratio (mass fraction)on 12-22-2021 HbA1c (Bld) [Mass fraction] 5.9 % 3.8-5.6 [facility] Work Phone: Comment on above: Normal < 5.7 % Predi abetic 5.7 - 6.4 % Diabetic >or= 6.5 % Please note range changes. Absolute lymphocyte counton 12-21-2021 Lymphocytes Auto (Unsp spec) [#/Vol] 1.23 10*3/uL 0.83-4.51 [facility] Work Phone: Basophil percentageon 2021 Basophils/100 WBC (Bld) 0.4 % 0-1 [facility] Work Phone: Chloride [Moles/Vol] 106 mmol/L 98-107 [facility] Work Phone: Eosinophils/100 WBC (Bld) 1.4 % 0-5 [facility] Work Phone: Glucose [Mass/Vol] 107 mg/dL 74-106 [facility] Work Phone: Comment on above: Fasting Glucose resu lt from 100 to 125 mg/dL suggests IMPAIRED HOMEOSTASIS per A.D.A. criteria. Neutrophils (Bld) [#/Vol] 5.7 10*3/uL 2.0-7.7 [facility] Work Phone: Neutrophils/100 WBC (Bld) 72.4 % 47-70 [facility] Work Phone: Potassium [Moles/Vol] 3.7 mmol/L 3.5-5.1 [facility] Work Phone: Sodium [Moles/Vol] 141 mmol/L 136-145 [facility] Work Phone: WBC (Bld) [#/Vol] 7.9 10*3/uL 4.4-11.0 [facility] Work Phone: [phone] Blood erythrocytes count (nu mber/volume)on 12-21-2021 RBC (Bld) [#/Vol] 4.85 10*6/uL 4.6-6.2 [facility] Work Phone: Blood hemoglobin measurement (mass/volume)on 12-21-2021 Hemoglobin (Bld) [Mass/Vol] 14.5 g/dL 13.0-16.5 [facility] Work Phone: Blood lymphocytes/100 leukoc yteson 12-21-2021 Lymphocytes/100 WBC (Bld) 15.5 % 19-41 [facility] Work Phone: Blood monocytes/100 leukocyt eson 12-21-2021 Monocytes/100 WBC (Bld) 9.9 % 0-10 [facility] Work Phone: Blood platelet mean volumeon 12-21-2021 Platelet mean volume (Bld) [Entitic vol] 10.2 fL 6.2-12.0 [facility] Work Phone: Determination of erythrocyte mean corpuscular volume (MCV)on 12-21-2021 MCV (RBC) [Entitic vol] 92.0 fL 80-94 [facility] Work Phone: Hematocrit Auto (Bld) [Volum e fraction]on 12-21-2021 Hematocrit (Bld) [Volume fraction] 44.6 % 40-54 [facility] Work Phone: INR in Blood by Coagulation assayon 12-21-2021 INR Coag (Bld) [Relative time] 2.3 {INR} [facility] Work Phone: Laboratory - Chemistry and C hemistry - challengeon 12-21-2021 CO2 [Moles/Vol] 29.0 mmol/L 21.0-32.0 [facility] Work Phone: Urea nitrogen/Creatinine [Mass ratio] 21.8 mg/mg 10-20 [facility] Work Phone: Laboratory - Coagulationon 1 aPTT Coag (Bld) [Time] 36.6 s 24.1-36.2 [facility] Work Phone: PT Coag (PPP) [Time] 24.7 s 11.7-14.9 [facility] Work Phone: Laboratory - Hematology and Cell countson 12-21-2021 Erythrocyte distribution width (RBC) [Entitic vol] 42.2 fL 35.1-43.9 [facility] Work Phone: Erythrocyte distribution width (RBC) [Ratio] 12.5 % 11.6-14.6 [facility] Work Phone: Immature granulocytes/100 WBC (Bld) 0.400 % 0.0-0.9 [facility] Work Phone: Comment on above: IG% - Immature Granu locytes (promyelocytes, myelocytes and metamyelocytes) > 1% indicates that a LEFT SHIFT is Present. MCH (RBC) [Entitic mass] 29.9 pg 27.0-32.0 [facility] Work Phone: Nucleated RBC/100 WBC (Bld) [Ratio] 0 % 0-5 [facility] Work Phone: MCHC Auto (RBC) [Mass/Vol]on 12-21-2021 MCHC (RBC) [Mass/Vol] 32.5 g/dL 32-36 [facility] Work Phone: No Panel Informationon 12-21 Estimated Creatinine Clearance Calc 66.90 ml/min [facility] Work Phone: Estimated GFR (MDRD) Amer 107 mL/min >60 [facility] Work Phone: Comment on above: GFR Calc Estimated GFR (MDRD) Non-Af Amer 88 mL/min >60 [facility] Work Phone: Comment on above: Non- GFR Calc Troponin I High Sensitivity 13 pg/mL 3.0-78.0 [facility] Work Phone: Comment on above: Please Note: New Hiwot t Units and Gender Specific Reference Ranges. For more information see Policy Stat Procedure [place] High Sensitivity Troponin (TNIH) and attachments. Platelets bldon 12-21-2021 Platelets (Bld) [#/Vol] 241 10*3/uL 150-450 [facility] Work Phone: Serum or plasma calcium alvaro urement (mass/volume)on 12-21-2021 Calcium [Mass/Vol] 9.2 mg/dL 8.5-10.1 [facility] Work Phone: Serum or plasma creatinine m easurement (mass/volume)on 12-21-2021 Creatinine [Mass/Vol] 0.87 mg/dL 0.70-1.30 [facility] Work Phone: Comment on above: The validity of the calculated GFR & GFRAA in patients over 70 years has not been determined. Clinical correlation is essential. Serum or plasma urea nitroge n measurement (mass/volume)on 12-21-2021 Urea nitrogen [Mass/Vol] 19 mg/dL 10-07 [facility] Work Phone: Thin prep Papanicolaou smear with manual screeningon 12-21-2021 Thin prep Papanicolaou smear with manual screening 08-04 [facility] Work Phone: CBC panel Auto (Bld)on 07-08 Erythrocyte distribution width (RBC) [Ratio] 13.1 % 11.5 - 15.0 % [facility] Hematocrit (Bld) [Volume fraction] 49.5 % 39.0 - 51.0 % [facility] Hemoglobin (Bld) [Mass/Vol] 15.9 g/dL 13.0 - 17.0 g/dL [facility] MCH (RBC) [Entitic mass] 29.6 pg 26.0 - 34.0 pg [facility] MCHC (RBC) [Mass/Vol] 32.1 g/dL 30.5 - 36.0 g/dL [facility] MCV (RBC) [Entitic vol] 92.2 fL 80.0 - 100.0 fL [facility] Nucleated RBC (Bld) [#/Vol] 10*3/uL <0.01 k/uL [facility] Platelet mean volume (Bld) [Entitic vol] 10.7 fL 9.0 - 12.7 fL [facility] Platelets (Bld) [#/Vol] 235 10*3/uL 150 - 400 k/uL [facility] RBC (Bld) [#/Vol] 5.37 10*6/uL 4.20 - 6.00 m/uL [facility] WBC (Bld) [#/Vol] 10.33 10*3/uL 3.70 - 11.00 k/uL [facility] XR Lumbar spine 3 Viewson IMPRESSION: 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 Measurement Supervisor: EDUAR Transcribe Date/Time: Mar 13 2020 8:34A Dictated by : GABRIELLE BENTLEY MD This examination was interpreted and the report reviewed and electronically signed by: GABRIELLE BENTLEY MD on Mar 13 2020 8:35AM [facility] DIVISION OF RADIOLOGY * * [...] spine are presented. FINDINGS: There are five rvv-mgh-gknzfks lumbar vertebrae. No fracture or subluxations are noted. L5-S1 disc space narrowing is demonstrated. There is significant osteophyte formation. Kissing spine seen on lateral view. DIVISION OF RADIOLOGY Provider, Richie Pierce [facility] - 03/13/2020 * * *Final Report* [...] spine are presented. FINDINGS: There are five udn-fdb-ljexcdp lumbar vertebrae. No fracture or subluxations are noted. L5-S1 disc space narrowing is demonstrated. There is significant osteophyte formation. Kissing spine seen on lateral view. 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 Measurement Supervisor: PSCB Transcribe Date/Time: Mar 13 2020 8:34A Dictated by : GABRIELLE BENTLEY MD This examination was interpreted and the report reviewed and electronically signed by: GABRIELLE BENTLEY MD on Mar 13 2020 8:35AM EST [facility] XR Lumbar spine 3 ViewsOrder ed By: Ccf Provider on 03-13-2020 [facility] XR Lumbar spine 3 Viewson Radiology Study observation (narrative) [facility] PROGRESSon 06-09-2017 PROGRESS HNO ID: [id number] Author: Vesta Marin PSR Service: (none) Author Type: (none) Type: Progress Notes Filed: 06/09/2017 4:13 PM Note Text: Spoke with the patient and scheduled his Corotid Doppler on June 24, 2017 at 9:00 am [facility] CNOVon 06-02-2017 CNOV Office Visit (AGCARDWST) -------ROBY FLORES ([id number]) 1935 MDate Time Provider Department06/02/17 9:00 AM [...] weeks.He will be getting labs from the [facility] in the near future and I've askedfor a copy.INR has been within range. He is due today.I will see him in 8 months or as needed. If there is increased chest pain orrecurrent syncope, he has been advised to contact me.Written and verbal health teaching given to patient, patient verbalizesunderstanding and agrees with treatment plan.This note was generated using Linksy voice recognition system, and there may besome incorrect words, spellings, and punctuation that were not noted inchecking the note before saving.DIAGNOSIS FOR VISIT:ASHDHypertensionHISTOR Y OF PRESENT ILLNESSClshayne Flores returns for follow-up of multiple cardiac issues, as notedabove.He's had no further episodes of syncope. He has been working out at the 4days week. He denies chest pain. His [...] There is no significantchange.Electronic ally Signed:Darrell Oliveira, [facility] 2017 9:15 [facility]: Carmen Vasquez MD 06/02/2017 9:21 AM AddendumDecrease [...] 24, 2017 at9:00 amReferring Provider: DARRELL OLIVEIRA [[id number]]Allergies As of Date: 06/02/2017(No Known Allergies)Date Reviewed: 06/02/2017Reviewed by: Rsusell Breaux) Anabella - Fully AssessedReason for Visit: Recheck [92]Primary Visit Diagnosis:ASHD (arteriosclerotic heart disease) [I25.10] Other Visit Diagnosis:PAF (paroxysmal atrial fibrillation) ([facility]) [I48.0]Order(s):ECG B/O W INTERP (MED OFFICE) [ECG06] Order #: [id number] Fosinopril Sodium 40 mg tabletTake 1/2 tablet [...] FOR* 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 Cosign accepted by STAS MORA MD[[id number]] on 09/30/2016 2:01 PM Fosinopril Sodium 40 [...] on file.Follow-up and Disposition History RecordedEncounter Number: [id number] Status:Closed by DARRELL OLIVEIRA MD on 06/02/17 [facility] PROGRESSon 06-02-2017 PROGRESS HNO ID: [id number] thor: Darrell Stahl: (none)Author Type: PhysicianType: Progress [...] weeks.He will be getting labs from the [facility] in the near future and I'veasked for a copy.INR has been within range. He is due today.I will see him in 8 months or as needed. If there is increased chest painor recurrent syncope, he has been advised to contact me.Written and verbal health teaching given to patient, patient verbalizesunderstanding and agrees with treatment plan.This note was generated using Linksy voice recognition system, and theremay be some [...] ectopics. 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 Or as directed WARFARIN 2.5 MG TABLET 60 t* 03/02/2017 Sig: Take 5mg, 2.5mg, 2.5 mg and repeat, or as directedMedications Discontinued During This Encounter warfarin (COUMADIN) 2.5 mg tablet 45 t* 01/23/2017 03/02/2017 Route: ORAL Sig: Take 1 tablet by mouth daily as directed. Disc: Reason for discontinue is not on file. warfarin (COUMADIN) 2.5 mg tablet 100 * 03/02/2017 03/02/2017 Route: ORAL Sig: Take 1 tablet by mouth once daily. Or as directed Disc: Reason for discontinue is not on file. Status:Closed by ELANA HOOD MA on 03/02/17 [facility] OBSOLETEon 01-23-2017 OBSOLETE Refill (AGCARDWST) -------ROBY FLORES ([id number]) 1935 MDate Time Provider Ocqdfhidny10/3/17 DARRELL OLIVEIRA AGCARDWST During your visit today, we recorded the following information about you:Dao Bishop RN, RN 01/23/2017 3:15 PM SignedPatient phones requesting refills as follows:Pending Prescriptions Disp Refills WARFARIN 2.5 MG TABLET 45 tablet 11 Sig: Take 1 tablet by mouth daily as directed. 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 Stas Mora MD Work Phone: 3(924)086-604719 [place] [address] 09-06-2024 14:15-0400 Diastolic blood pressure 88 mm[Hg] Dr. Stas Mora MD Work Phone: 5(085)333-380866 [place] [address] 09-06-2024 14:15-0400 Heart rate 78 /min Dr. Stas Mora MD Work Phone: 6(841)481-575719 [place] [address] 09-06-2024 14:15-0400 Respiratory rate 18 /min Dr. Stas Mora MD Work Phone: 3(240)660-984119 [place] [address] 09-06-2024 14:15-0400 SaO2% (BldA) [Mass fraction] 97 % Dr. Stas Mora MD Work Phone: [facility] 09-06-2024 14:15-0400 Systolic blood pressure 137 mm[Hg] Dr. Stas Mora MD Work Phone: 4(756)892-775319 [place] [address] 09-04-2024 12:05-0400 Inhaled oxygen flow rate 2 L/min Dr. Stas Mora MD Work Phone: 3(066)973-203980 [address] 09-01-2024 11:52-0400 Body height 182.[address] Stas Mora MD Work Phone: 1(292)556-077366 [place] [address] 09-01-2024 11:52-0400 Body mass index (BMI) [Ratio] 21.6 kg/m2 Dr. Stas Mora MD Work Phone: 0(178)543-350666 [place] [address] 09-01-2024 11:52-0400 Body weight 72.[address] Stas Mora MD Work Phone: 8(104)383-379166 [place] [address] 09-01-2024 11:00-0400 Diastolic blood pressure 79 mm[Hg] Dr. Stas Mora MD Work Phone: 8(086)762-283066 [place] [address] 09-01-2024 11:00-0400 Heart rate 70 /min Dr. Stas Mora MD Work Phone: 8(703)955-794266 [place] [address] 09-01-2024 11:00-0400 Respiratory rate 18 /min Dr. Stas Mora MD Work Phone: 9(700)753-906066 [place] [address] 09-01-2024 11:00-0400 SaO2% (BldA) [Mass fraction] 98 % Dr. Stas Mora MD Work Phone: 2(122)441-373066 [place] [address] 09-01-2024 11:00-0400 Systolic blood pressure 180 mm[Hg] Dr. Stas Mora MD Work Phone: 9(896)423-929466 [place] [address] 09-01-2024 09:52-0400 Body temperature 98.9 [degF] Dr. Stas Mora MD Work Phone: 9(708)095-455066 [place] [address] 09-01-2024 07:31-0400 Body height 182.[address] Stas Mora MD Work Phone: 7(994)823-075266 [place] [address] 09-01-2024 07:31-0400 Body mass index (BMI) [Ratio] 23.4 kg/m2 Dr. Stas Mora MD Work Phone: 0(684)937-418566 [place] [address] 09-01-2024 07:31-0400 Body weight 78.[address] Stas Mora MD Work Phone: 1(885)467-358866 [place] [address] 08-31-2024 11:05-0400 Body mass index (BMI) [Ratio] 22.35 kg/m2 Luciana Cisneros MD Work Phone: [facility] 08-31-2024 11:05-0400 Body weight 73.94 kg Luciana Cisneros MD Work Phone: [facility] 08-31-2024 11:05-0400 Diastolic blood pressure 74 mm[Hg] Luciana Cisneros MD Work Phone: [facility] 08-31-2024 11:05-0400 Heart rate 74 /min Luciana Cisneros MD Work Phone: [facility] 08-31-2024 11:05-0400 Respiratory rate 12 /min Luciana Cisneros MD Work Phone: [facility] 08-31-2024 11:05-0400 SaO2% (BldA) [Mass fraction] 98 % Luciana Cisneros MD Work Phone: [facility] 08-31-2024 11:05-0400 Systolic blood pressure 124 mm[Hg] Luciana Cisneros MD Work Phone: [facility] 07-28-2024 11:12-0400 Diastolic blood pressure 78 mm[Hg] Stas Mora MD Work Phone: [facility] 07-28-2024 11:12-0400 Systolic blood pressure 136 mm[Hg] Stas Mora MD Work Phone: [facility] 07-28-2024 11:10-0400 Body mass index (BMI) [Ratio] 22.4 kg/m2 Stas Mora MD Work Phone: [facility] 07-28-2024 11:10-0400 Body weight 74.1 kg Stas Mora MD Work Phone: [facility] 07-28-2024 11:10-0400 Heart rate 56 /min Stas Mora MD Work Phone: [facility] 07-28-2024 11:10-0400 Respiratory rate 16 /min Stas Mora MD Work Phone: [facility] 06-01-2024 14:52-0400 Body height 181.9 cm Luciana Cisneros MD Work Phone: [facility] 06-01-2024 14:52-0400 Body mass index (BMI) [Ratio] 22.33 kg/m2 Luciana Cisneros MD Work Phone: [facility] 06-01-2024 14:52-0400 Body weight 73.85 kg Luciana Cisneros MD Work Phone: [facility] 06-01-2024 14:52-0400 Diastolic blood pressure 60 mm[Hg] Luciana Cisneros MD Work Phone: [facility] 06-01-2024 14:52-0400 Heart rate 46 /min Luciana Cisneros MD Work Phone: [facility] 06-01-2024 14:52-0400 SaO2% (BldA) [Mass fraction] 98 % Luciana Cisneros MD Work Phone: [facility] 06-01-2024 14:52-0400 Systolic blood pressure 132 mm[Hg] Luciana Cisneros MD Work Phone: [facility] 05-26-2024 09:18-0500 Diastolic blood pressure 82 mm[Hg] Stas Mora MD Work Phone: [facility] 05-26-2024 09:18-0500 Systolic blood pressure 144 mm[Hg] Stas Mora MD Work Phone: [facility] 05-26-2024 09:06-0500 Body mass index (BMI) [Ratio] 22.19 kg/m2 Stas Mora MD Work Phone: [facility] 05-26-2024 09:06-0500 Body weight 73.5 kg Stas Mora MD Work Phone: [facility] 05-26-2024 09:06-0500 Heart rate 56 /min Stas Mora MD Work Phone: [facility] 05-26-2024 09:06-0500 Respiratory rate 18 /min Stas Mora MD Work Phone: [facility] 04-27-2024 09:34-0500 Body height 182 cm Luciana Cisneros MD Work Phone: [facility] 04-27-2024 09:34-0500 Body mass index (BMI) [Ratio] 22.51 kg/m2 Luciana Cisneros MD Work Phone: [facility] 04-27-2024 09:34-0500 Body weight 74.57 kg Luciana Cisneros MD Work Phone: [facility] 04-27-2024 09:34-0500 Diastolic blood pressure 62 mm[Hg] Luciana Cisneros MD Work Phone: [facility] 04-27-2024 09:34-0500 Heart rate 60 /min Luciana Cisneros MD Work Phone: [facility] 04-27-2024 09:34-0500 SaO2% (BldA) [Mass fraction] 98 % Luciana Cisneros MD Work Phone: [facility] 04-27-2024 09:34-0500 Systolic blood pressure 110 mm[Hg] Luciana Cisneros MD Work Phone: [facility] 11-26-2023 10:33-0400 Diastolic blood pressure 80 mm[Hg] Stas Mora MD Work Phone: [facility] 11-26-2023 10:33-0400 Systolic blood pressure 144 mm[Hg] Stas Mora MD Work Phone: [facility] 11-26-2023 10:22-0400 Body mass index (BMI) [Ratio] 21.95 kg/m2 Stas Mora MD Work Phone: [facility] 11-26-2023 10:22-0400 Body weight 71.4 kg Stas Mora MD Work Phone: [facility] 11-26-2023 10:22-0400 Heart rate 60 /min Stas Mora MD Work Phone: [facility] 11-26-2023 10:22-0400 Respiratory rate 18 /min Stas Mora MD Work Phone: [facility] 09-15-2023 08:38-0400 Body mass index (BMI) [Ratio] 24.52 kg/m2 Stas Mora MD Work Phone: [facility] 09-15-2023 08:38-0400 Body weight 79.74 kg Stas Mora MD Work Phone: [facility] 09-15-2023 08:38-0400 Diastolic blood pressure 84 mm[Hg] Stas Mora MD Work Phone: [facility] 09-15-2023 08:38-0400 Heart rate 76 /min Stas Mora MD Work Phone: [facility] 09-15-2023 08:38-0400 Respiratory rate 18 /min Stas Mora MD Work Phone: [facility] 09-15-2023 08:38-0400 Systolic blood pressure 138 mm[Hg] Stas Mora MD Work Phone: [facility] 08-14-2023 09:57-0400 Body mass index (BMI) [Ratio] 22.59 kg/m2 Stas Mora MD Work Phone: [facility] 08-14-2023 09:57-0400 Body weight 73.48 kg Stas Mora MD Work Phone: [facility] 08-14-2023 09:57-0400 Diastolic blood pressure 80 mm[Hg] Stas Mora MD Work Phone: [facility] 08-14-2023 09:57-0400 Heart rate 64 /min Stas Mora MD Work Phone: [facility] 08-14-2023 09:57-0400 Respiratory rate 14 /min Stas Mora MD Work Phone: [facility] 08-14-2023 09:57-0400 Systolic blood pressure 140 mm[Hg] Stas Mora MD Work Phone: [facility] 06-01-2023 15:08-0400 Body weight 75.75 kg Stas Mora MD Work Phone: [facility] 06-01-2023 15:08-0400 Diastolic blood pressure 90 mm[Hg] Stas Mora MD Work Phone: [facility] 06-01-2023 15:08-0400 Heart rate 82 /min Stas Mora MD Work Phone: [facility] 06-01-2023 15:08-0400 Respiratory rate 16 /min Stas Mora MD Work Phone: [facility] 06-01-2023 15:08-0400 SaO2% (BldA) [Mass fraction] 100 % Stas Mora MD Work Phone: [facility] 06-01-2023 15:08-0400 Systolic blood pressure 140 mm[Hg] Stas Mora MD Work Phone: [facility] 02-16-2023 13:57-0500 Diastolic blood pressure 62 mm[Hg] Stas Mora MD Work Phone: [facility] 02-16-2023 13:57-0500 Heart rate 62 /min Stas Mora MD Work Phone: [facility] 02-16-2023 13:57-0500 Respiratory rate 16 /min Stas Mora MD Work Phone: [facility] 02-16-2023 13:57-0500 Systolic blood pressure 110 mm[Hg] Stas Mora MD Work Phone: [facility] 02-10-2023 16:59-0500 Diastolic blood pressure 68 mm[Hg] [facility] 02-10-2023 16:59-0500 Heart rate 79 /min [facility] 02-10-2023 16:59-0500 Respiratory rate 12 /min [facility] 02-10-2023 16:59-0500 SaO2% (BldA) [Mass fraction] 98 % [facility] 02-10-2023 16:59-0500 Systolic blood pressure 153 mm[Hg] [facility] 02-10-2023 14:37-0500 Body mass index (BMI) [Ratio] 22.1 kg/m2 [facility] 02-10-2023 14:37-0500 Body weight 74.3 kg [facility] 02-10-2023 14:32-0500 Body height 182.88 cm [facility] 02-10-2023 14:32-0500 Body temperature 98 [degF] [facility] 11-17-2022 17:22-0400 Diastolic Blood Pressure Non-Invasive 68 1 STERLING FROMLayer3 TVT DO [facility] 11-17-2022 17:22-0400 Heart rate 76 /min STERLING FROMLayer3 TVT DO [facility] 11-17-2022 17:22-0400 Respiratory rate 18 /min STERLING FROMMELT DO [facility] 11-17-2022 17:22-0400 Systolic Blood Pressure Non-Invasive 126 1 STERLING FROMLayer3 TVT DO [facility] 11-17-2022 15:23-0400 Body height 185.4 cm STERLING FROMLayer3 TVT DO [facility] 11-17-2022 15:23-0400 Body temperature 97.88 [degF] STERLING FROMMELT DO [facility] 11-17-2022 15:23-0400 Body weight 79.6 kg STERLING FROMMELT DO [facility] 11-17-2022 15:23-0400 Diastolic Blood Pressure Non-Invasive 70 1 STERLING FROMLayer3 TVT DO [facility] 11-17-2022 15:23-0400 Heart rate 89 /min STERLING FROMLayer3 TVT DO [facility] 11-17-2022 15:23-0400 Respiratory rate 18 /min STERLING FROMLayer3 TVT DO [facility] 11-17-2022 15:23-0400 Systolic Blood Pressure Non-Invasive 134 1 STERLING LYNCH DO [facility] 08-26-2022 13:12-0400 Body height 180.3 cm Stas Mora MD Work Phone: [facility] 08-26-2022 13:12-0400 Body weight 78.74 kg Stas Mora MD Work Phone: [facility] 08-26-2022 13:12-0400 Diastolic blood pressure 74 mm[Hg] Stas Mora MD Work Phone: [facility] 08-26-2022 13:12-0400 Heart rate 66 /min Stas Mora MD Work Phone: [facility] 08-26-2022 13:12-0400 Respiratory rate 16 /min Stas Mora MD Work Phone: [facility] 08-26-2022 13:12-0400 Systolic blood pressure 122 mm[Hg] Stas Mora MD Work Phone: [facility] 12-26-2021 11:22-0400 Body weight 78.56 kg Stas Mora MD Work Phone: [facility] 12-26-2021 11:22-0400 Diastolic blood pressure 80 mm[Hg] Stas Mora MD Work Phone: [facility] 12-26-2021 11:22-0400 Heart rate 58 /min Stas Mora MD Work Phone: [facility] 12-26-2021 11:22-0400 Respiratory rate 16 /min Stas Mora MD Work Phone: [facility] 12-26-2021 11:22-0400 Systolic blood pressure 142 mm[Hg] Stas Mora MD Work Phone: [facility] 12-22-2021 11:13-0400 Body temperature 97.6 [degF] Dr. Stas Mora Work Phone: [facility] Work Phone: 12-22-2021 11:13-0400 Diastolic blood pressure 58 mm[Hg] Dr. Stas Mora Work Phone: [facility] Work Phone: 12-22-2021 11:13-0400 Heart rate 63 /min Dr. Stas Mora Work Phone: [facility] Work Phone: 12-22-2021 11:13-0400 Respiratory rate 16 /min Dr. Stas Mora Work Phone: [facility] Work Phone: 12-22-2021 11:13-0400 SaO2% (BldA) [Mass fraction] 96 % Dr. Stas Mora Work Phone: [facility] Work Phone: 12-22-2021 11:13-0400 Systolic blood pressure 142 mm[Hg] Dr. Stas Mora Work Phone: [facility] Work Phone: 12-21-2021 20:06-0400 Body height 182.[address] Stas Mora Work Phone: [facility] Work Phone: 12-21-2021 20:06-0400 Body mass index (BMI) [Ratio] 22.6 kg/m2 Dr. Stas Mora Work Phone: [facility] Work Phone: 12-21-2021 20:06-0400 Body weight 75.[address] Stas Mora Work Phone: [facility] Work Phone: 12-21-2021 19:15-0400 Diastolic blood pressure 81 mm[Hg] [facility] Work Phone: 12-21-2021 19:15-0400 Heart rate 70 /min [facility] Work Phone: 12-21-2021 19:15-0400 Respiratory rate 18 /min [facility] Work Phone: 12-21-2021 19:15-0400 SaO2% (BldA) [Mass fraction] 96 % [facility] Work Phone: 12-21-2021 19:15-0400 Systolic blood pressure 171 mm[Hg] [facility] Work Phone: 12-21-2021 19:02-0400 Body temperature 97.6 [degF] [facility] Work Phone: 12-21-2021 18:17-0400 Body height 182.88 cm [facility] Work Phone: 12-21-2021 18:17-0400 Body mass index (BMI) [Ratio] 24.2 kg/m2 [facility] Work Phone: 12-21-2021 18:17-0400 Body weight 80.9 kg [facility] Work Phone: 09-05-2021 11:21-0400 Body height 182.9 cm Stas Mora MD Work Phone: [facility] 09-05-2021 11:21-0400 Body weight 80.2 kg Stas Mora MD Work Phone: [facility] 09-05-2021 11:21-0400 Diastolic blood pressure 70 mm[Hg] Stas Mora MD Work Phone: [facility] 09-05-2021 11:21-0400 Heart rate 62 /min Stas Mora MD Work Phone: [facility] 09-05-2021 11:21-0400 Respiratory rate 16 /min Stas Mora MD Work Phone: [facility] 09-05-2021 11:21-0400 Systolic blood pressure 136 mm[Hg] Stas Mora MD Work Phone: [facility] 07-08-2021 10:41-0400 Body weight 83.55 kg Stas Mora MD Work Phone: [facility] 07-08-2021 10:41-0400 Diastolic blood pressure 78 mm[Hg] Stas Mora MD Work Phone: [facility] 07-08-2021 10:41-0400 Heart rate 60 /min Stas Mora MD Work Phone: [facility] 07-08-2021 10:41-0400 Respiratory rate 16 /min Stas Mora MD Work Phone: [facility] 07-08-2021 10:41-0400 Systolic blood pressure 120 mm[Hg] Stas Mora MD Work Phone: [facility] Encounters Encounter Date Encounter Type Care Provider Facility Start: 10-31-2024 ambulatory Stas Frankel y:[facility] Start: 10-31-2024 Registered Referred Shayy MaloneyElmer Olguin/Alyssa Start: 10-20-2024 End: 10-20-[address] Stas Mora MD Work Phone: [facility] Start: 10-20-2024 End: 10-20-2024 Patient encounter procedure [facility] Work Phone: Start: 10-06-2024 ambulatory Shayy GAMA Fa cility:[facility] Start: 10-06-2024 Registered Referred Shayy MaloneyElmer Olguin/Alyssa Start: 10-05-2024 ambulatory Shayy GAMA Fa cility:[facility] Start: 10-05-2024 Registered Referred Shayy MaloneyElmer Olguin/Alyssa Start: 09-30-2024 End: 09-30-[address] Stas Mora MD Work Phone: [facility] Start: 09-30-2024 End: 09-30-2024 Patient encounter procedure [facility] Work Phone: Start: 09-29-2024 ambulatory Efhollieongbe Martintomye OLS Fa cility:[facility] Start: 09-29-2024 Registered Referred Shayy Cardozo Start: 09-28-2024 ambulatory Efhollietimmy [place] [facility] Fa cility:[facility] Start: 09-28-2024 Registered Referred Shayy Cardozo Start: 09-26-2024 ambulatory Efbaldomero [place] [facility] Fa cility:[facility] Start: 09-26-2024 Registered Referred Shayy Cardozo Start: 09-23-2024 ambulatory Efbaldomero Curtis O[facility] Fa cility:[facility] Start: 09-23-2024 Registered Referred Shayy Cardozo Start: 09-21-2024 End: 09-22-2024 Telephone encounter Stas Mora MD Work Phone: [facility] Start: 09-21-2024 ambulatory Hungbaldomero [place] O[facility] Fa cility:[facility] Start: 09-21-2024 Registered Referred Shayy Cardozo Start: 09-19-2024 ambulatory Efbaldomero [place] [facility] Fa cility:[facility] Start: 09-19-2024 Registered Referred Shayy Cardozo Start: 09-15-2024 ambulatory Shayy Curtis [facility] Fa cility:[facility] Start: 09-15-2024 Registered Referred Shayy Cardozo Start: 09-14-2024 ambulatory Efhollieongirlanda [place] [facility] Fa cility:[facility] Start: 09-14-2024 Registered Referred Shayy Cardozo Start: 09-12-2024 ambulatory Efbaldomero Curtis OLS Fa cility:[facility] Start: 09-12-2024 Registered Referred Shayy Cardozo Start: 09-08-2024 End: 09-08-2024 Patient encounter procedure Halina Lintonimedla [facility] Work Phone: Start: 09-08-2024 End: 09-08-[address] Stas Mora MD Work Phone: [facility] Start: 09-08-2024 Registered Referred Shayy Cardozo Start: 09-07-2024 End: 09-07-2024 Patient encounter procedure Halina Lintonimelda [facility] Work Phone: Start: 09-07-2024 End: 09-07-[address] Stas Mora MD Work Phone: [facility] Start: 09-07-2024 Registered Referred Shayy Cardozo Start: 09-06-2024 Non-patient / Non-visit Dr. Navid Dominguez MD [facility] Work Phone: Start: 09-05-2024 Non-patient / Non-visit Dr. Navid Dominguez MD [facility] Work Phone: Start: 09-04-2024 Non-patient / [facility] Work [facility]: Start: 09-03-2024 Non-patient / Non-visit [facility] Jia [facility] Work Phone: Start: 09-02-2024 Non-patient / Non-visit [facility] Jia [facility] Work Phone: Start: 09-02-2024 ambulatory Kathy Wells Facility :[facility] Start: 09-02-2024 End: 09-06-2024 Evaluation and management of inpatient Dr. Navid Dominguez MD -[facility] Work Phone: Start: 09-01-2024 End: 09-01-2024 Telephone encounter Russell Aguayo [facility] Work Phone: [facility] Comment on above: Medication Problem ( Cost) Start: 09-01-2024 ambulatory Kathy Wells Facility :[facility] Start: 09-01-2024 Evaluation and management of inpatient Dr. Kathy Wells MD [facility] Work Phone: Start: 09-01-2024 Non-patient / Non-visit Dr. Jia Wells MD -[place] [facility] Work Phone: Start: 09-01-[address] Stas Mora MD Work Phone: [facility] Work Phone: Start: 08-31-2024 End: 08-31-2024 Telephone encounter Coretta Jalloh [facility] Telemanagement Comment on above: Anticoagulation Tele phone Fu (Home INR result ) Start: 08-31-2024 End: 08-31-2024 ambulatory STAS MORA Facility:[facility] Start: 08-31-2024 End: 08-31-2024 Office outpatient visit 25 minutes Luciana Cisneros MD Work Phone: Geriatrics Comment on above: Moderate dementia wi thout behavioral disturbance, psychotic disturbance, mood disturbance, or anxiety, unspecified dementia type (HCC) (Primary Dx); Hallucinations; Screening for depression; Encounter for screening examination for other mental health and behavioral disorders Start: 08-31-2024 End: 08-31-2024 ambulatory LUCIANA CISNEROS Facility:[facility] Start: 08-03-2024 End: 08-03-2024 Telephone encounter Coretta Jalloh [facility] Telemanagement Comment on above: Anticoagulation Tele phone Fu (Lab INR result) Start: 08-03-2024 End: 08-03-2024 ambulatory STAS MORA Facility:[facility] Start: 07-28-2024 End: 07-28-2024 Office outpatient visit 15 minutes Stas Mora MD Work Phone: [facility] [place] Comment on above: Bursitis of right el bow, unspecified bursa (Primary Dx) Start: 07-28-2024 End: 07-28-2024 ambulatory STAS MORA Facility:[facility] Start: 07-06-2024 End: 07-06-2024 Telephone encounter Coretta Jalloh [facility] Tele[facility] Comment on above: Anticoagulation Tele phone Fu (Lab INR result ) Start: 07-06-2024 End: 07-06-2024 ambulatory [facility] Facility:[facility] Start: 06-29-2024 End: 06-29-2024 Telephone encounter Coretta Jalloh [facility] Tele[facility] Comment on above: Anticoagulation Tele phone Fu (Lab INR result ) Start: 06-29-2024 End: 06-29-2024 ambulatory [facility] Facility:[facility] Start: 06-01-2024 End: 06-01-2024 Office consultation new/estab patient 80 min Luciana Cisneros MD Work Phone: Geriatrics Comment on above: Mixed dementia (HCC) (Primary Dx); Vascular parkinsonism (HCC) Start: 06-01-2024 End: 06-01-2024 ambulatory [facility] Facility:[facility] Start: 06-01-2024 End: 08-01-2024 Follow-up encounter Luciana Cisneros MD Work Phone: Geriatrics Start: 05-26-2024 End: 05-26-2024 Telephone encounter Luciana Cisneros MD Work Phone: Geriatrics Comment on above: Appointment (Resched ule for geriatric f/u) Start: 05-26-2024 End: 05-26-2024 ambulatory [facility] Facility:[facility] Start: 05-26-2024 End: 05-26-2024 Patient encounter procedure Stas Mora MD Work Phone: [facility] [place] Comment on above: Essential hypertensi on, benign (Primary Dx); Hyperlipidemia, unspecified hyperlipidemia type; Atherosclerosis 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, unspecified vessel or lesion type, unspecified whether [place] or transplanted heart; Paroxysmal atrial fibrillation (HCC); Edema of both lower legs; History of stroke with residual effects; Dementia, unspecified dementia severity, unspecified dementia type, unspecified whether behavioral, psychotic, or mood disturbance or anxiety (HCC) Start: 05-25-2024 End: 05-25-2024 Telephone encounter Paige Hickman [facility] Tele[facility] Comment on above: Anticoagulation Tele phone Fu (Lab INR Result ) Start: 05-25-2024 End: 05-25-2024 ambulatory STAS MORA Facility:[facility] Start: 05-23-2024 ambulatory LUCIANA CISNEROS Facility :[id number] Start: 05-23-2024 End: 05-23-2024 Subsequent hospital visit by physician [facility] Work Phone: [facility] Comment on above: Cognitive impairment , mild, 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] Start: 04-28-2024 End: 04-29-2024 Telephone encounter Stas Mora MD Work Phone: [facility] [place] Comment on above: Results Start: 04-27-2024 End: 04-27-2024 Telephone encounter Coretta Jalloh [facility] Tele[facility] Comment on above: Anticoagulation Tele phone Fu (Lab INR result ) Start: 04-27-2024 End: 04-27-2024 ambulatory LUCIANA CISNEROS Facility:[facility] Start: 04-27-2024 End: 04-27-2024 Assmt & care planning pt w/cognitive impairment Luciana Cisneros MD Work Phone: Geriatrics Comment on above: Dementia, unspecifie d dementia severity, unspecified dementia type, unspecified whether behavioral, psychotic, or mood disturbance or anxiety (HCC) (Primary Dx); Cognitive impairment; Cognitive impairment, mild, so stated; Shuffling gait; Ambulatory dysfunction; Balance disorder Start: 04-27-2024 End: 04-27-2024 ambulatory STAS MORA Facility:[facility] Start: 04-25-2024 End: 04-25-2024 Telephone encounter Stas Mora MD Work Phone: [facility] [place] Comment on above: memory issues Start: 04-13-2024 End: 04-13-2024 Telephone encounter Coretta Jalloh [facility] Comment on above: Anticoagulation Tele phone Fu (Home INR result ) Start: 04-13-2024 End: 04-13-2024 ambulatory STAS MORA Facility:[facility] Start: 03-30-2024 End: 03-30-2024 Telephone encounter Coretta Jalloh [facility] Comment on above: Anticoagulation Tele phone Fu (Lab INR result ) Start: 03-30-2024 End: 03-30-2024 ambulatory [facility] Facility:[facility] Start: 03-17-2024 End: 03-17-2024 Telephone encounter Josy Collins [facility] Comment on above: Anticoagulation Tele phone Fu (Lab INR result ) Start: 03-17-2024 End: 03-17-2024 ambulatory [facility] Facility:[facility] Start: 03-03-2024 End: 03-03-2024 Telephone encounter Elise Paredes [facility] Tele[facility] Comment on above: Anticoagulation Tele phone Fu (Lab INR result) Start: 03-03-2024 End: 03-03-2024 ambulatory STAS Trejo [facility] Facility:[facility] Start: 02-10-2024 End: 02-10-2024 Telephone encounter Coretta Jalloh [facility] Comment on above: Anticoagulation Tele phone Fu (Lab INR result ) Start: 02-10-2024 End: 02-10-2024 ambulatory [facility] Facility:[facility] Start: 01-20-2024 End: 01-20-2024 Telephone encounter Coretta Jalloh [facility] Comment on above: Anticoagulation Tele phone Fu (Lab INR results ) Start: 01-20-2024 End: 01-20-2024 ambulatory [facility] Facility:[facility] Start: 01-04-2024 End: 01-04-2024 Telephone encounter Stas Mora MD Work Phone: [facility] Comment on above: Medication Request Start: 12-24-2023 End: 12-24-2023 Telephone encounter Elies Paredes [facility] Comment on above: Anticoagulation Tele phone Fu (Lab INR) Start: 12-23-2023 End: 12-23-2023 ambulatory STAS Maya [facility] Facility:[facility] Start: 12-10-2023 End: 12-10-2023 Telephone encounter Elise Paredes [facility] Comment on above: Anticoagulation Tele phone Fu (Lab INR) Start: 12-09-2023 End: 12-09-2023 ambulatory STAS MORA Facility:[facility] Start: 11-26-2023 End: 11-26-2023 Telephone encounter Elise Paredes [facility] Tele[facility] Comment on above: Anticoagulation Tele phone Fu (Lab INR) Start: 11-26-2023 End: 11-26-2023 ambulatory SATS Maya [facility] Facility:[facility] Start: 11-26-2023 End: 11-26-2023 Patient encounter procedure Stas Mora MD Work Phone: [facility] [place] Comment on above: Essential hypertensi on, benign (Primary Dx); Hyperlipidemia, unspecified hyperlipidemia type; Edema of both lower legs; Paroxysmal atrial fibrillation (HCC); History of stroke with residual effects; 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, psychotic disturbance, mood disturbance, or anxiety (HCC); Urinary frequency; Abnormal CBC Start: 11-18-2023 End: 11-18-2023 Telephone encounter Coretta Jalloh [facility] Tele[facility] Comment on above: Anticoagulation Tele phone Fu (Home INR) Start: 11-18-2023 End: 11-18-2023 ambulatory STAS Trejo [facility] Facility:[facility] Start: 11-16-2023 End: 11-16-2023 Refill Stas Mora MD Work Phone: [facility] [place] Comment on above: Refill Request Start: 10-14-2023 Telephone encounter [facility] Comment on above: Anticoagulation Tele phone Fu (Home INR results ) Start: 09-16-2023 Telephone encounter Colleen Sommer [facility] Tele[facility] Comment on above: Anticoagulation Tele phone Fu Start: 09-15-2023 End: 09-15-2023 Patient encounter procedure Stas Mora MD Work Phone: [facility] [place] Comment on above: Edema of both lower legs (Primary Dx) Start: 09-14-2023 End: 09-14-2023 ambulatory Nurse Intm/Famp Triage [facility] Work Phone: Nurse Phone Triage Comment on above: Leg swelling Start: 09-02-2023 Telephone encounter [facility]ta aJlloh [facility] Comment on above: Anticoagulation Tele phone Fu (Lab INR results) Start: 08-26-2023 Telephone encounter [facility]ta Taryaquelin [facility] Comment on above: Anticoagulation Tele phone Fu (Lab INR results ) Start: 08-19-2023 Telephone encounter Corettaubaldo Jalloh [facility] Comment on above: Anticoagulation Tele phone Fu (Lab INR) Start: 08-14-2023 End: 08-14-2023 Patient encounter procedure Stas Mora MD Work Phone: [facility] Comment on above: Moderate vascular de mentia without behavioral disturbance, psychotic disturbance, mood disturbance, or anxiety (HCC) (Primary Dx); Essential hypertension, benign; Paroxysmal atrial fibrillation (HCC) Start: 08-12-2023 Telephone encounter [facility]ta [facility]oh [facility] Comment on above: Anticoagulation Tele phone Fu (Home INR results ) Start: 08-06-2023 ambulatory PAYTON SHAMAR DO Facil ity:A Start: 08-05-2023 Telephone encounter [facility]ta [facility]oh [facility] Comment on above: Anticoagulation Tele phone Fu (Home INR results ) Start: 07-29-2023 Telephone encounter [facility] Comment on above: Anticoagulation Foll ow Up Start: 07-22-2023 Telephone encounter [facility]oretta Jalloh [facility] Comment on above: Anticoagulation Tele phone Fu (Lab INR results ) Start: 07-16-2023 Refill Elvis RASHID RN.GUEST ATTENDANT Work Phone: [facility] Comment on above: Refill Request Start: 07-15-2023 Telephone encounter [facility]ta Taryaquelin [facility] Comment on above: Anticoagulation Tele phone Fu (Lab INR results ) Start: 07-08-2023 Telephone encounter [facility] T[facility]aquelin [facility] Comment on above: Anticoagulation Tele phone Fu (Lab INR ) Start: 07-02-2023 Telephone encounter [facility] Taryaquelin [facility] Comment on above: Opened In Error Start: 07-01-2023 Telephone encounter [facility]ta Taryaquelin [facility] Comment on above: Anticoagulation Tele phone Fu (Home INR ) Start: 06-25-2023 End: 04-13-2024 Telephone encounter [facility] Comment on above: Patient Update Start: 06-24-2023 Telephone encounter Jerzy Easton MD Work Phone: [facility] [place] Comment on above: Anticoagulation Start: 06-11-2023 Telephone encounter Stas miranda MD Work Phone: [facility] [place] Comment on above: Anticoagulation Start: 06-08-2023 Telephone encounter Jenna Armenta nvof SAMPLE CUTTER.GUEST ATTENDANT Work Phone: [facility] [place] Comment on above: Erroneous encounter- disregard Anticoagulation Start: 06-05-2023 Telephone encounter Jenna Armenta nvof SAMPLE CUTTER.GUEST ATTENDANT Work Phone: [facility] [place] Comment on above: Results (Labs, Criti cleopatra ) Start: 06-04-2023 ambulatory Hortencia Winston RN NURSE O N CALL Comment on above: Results, Lab High Protime and INR Start: 06-04-2023 E-mail encounter fro m caregiver Jasmin Bell MD Work Phone: [facility] Start: 06-04-2023 Telephone encounter Jenna Armenta nvof SAMPLE CUTTER.GUEST ATTENDANT Work Phone: [facility] [place] Comment on above: Results; Orders (Lab s ) Start: 06-03-2023 Telephone encounter [facility] Comment on above: Anticoagulation Tele phone Fu (Lab INR results ) Start: 06-01-2023 End: 06-01-2023 Patient encounter procedure Stas Mora MD Work Phone: [facility] [place] Comment on above: Essential hypertensi on, benign (Primary Dx); Paroxysmal atrial fibrillation (HCC); Atherosclerosis 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, unspecified vessel or lesion type, unspecified whether [place] or transplanted heart; Hyperlipidemia, unspecified hyperlipidemia type; History of stroke with residual effects; Speech disturbance, unspecified type Start: 05-27-2023 Telephone encounter [facility] Comment on above: Anticoagulation Tele phone Fu (Lab INR results ) Start: 05-20-2023 Telephone encounter [facility] Comment on above: Anticoagulation Tele phone Fu (Home INR results) Start: 05-13-2023 Telephone encounter Senia Phillips [facility] Ambulatory Telemanagement Comment on above: Anticoagulation Tele phone Fu (INR Lab Result) Start: 05-06-2023 Telephone encounter [facility] Comment on above: Anticoagulation Tele phone Fu (Lab INR results ) Start: 04-29-2023 Telephone encounter [facility] Comment on above: Anticoagulation Tele phone Fu (Home INR results ) Start: 02-20-2023 Telephone encounter Elise Paredes [facility] Comment on above: Anticoagulation Tele phone Fu (Lab INR) Start: 02-17-2023 Telephone encounter Stas miranda MD Work Phone: [facility] Comment on above: Results Start: 02-17-2023 End: 02-17-2023 Subsequent hospital visit by physician Mri Radio [facility] (I-Stat/1.5t) Work Phone: Radiology Comment on above: Cerebral infarction, unspecified mechanism (HCC) [I63.9] Start: 02-16-2023 End: 02-16-2023 Patient encounter procedure Stas Mora MD Work Phone: [facility] Comment on above: Cerebral infarction, unspecified mechanism (HCC) (Primary Dx); Generalized weakness; Speech disturbance, unspecified type; Hyperlipidemia, unspecified hyperlipidemia type; Essential hypertension, benign; Paroxysmal atrial fibrillation (HCC) Start: 02-13-2023 Telephone encounter Elise Paredes [facility] Comment on above: Anticoagulation Tele phone Fu (Lab INR) Start: 02-10-2023 End: 02-10-2023 Emergency department patient visit [facility] Work Phone: Start: 02-06-2023 Telephone encounter Senia Phillips [facility] Telemanagement Comment on above: Anticoagulation Tele phone Fu (INR Lab Result) Start: 01-19-2023 Telephone encounter [facility] Comment on above: Anticoagulation Tele phone Fu Start: 01-16-2023 Orders Only Stas newman MD Work Phone: [facility] [place] Comment on above: donor specialist current us e of anticoagulant (Primary Dx); [...] Result) Start: 11-21-2022 Telephone encounter Jeimy Duong [facility] Comment on above: Anticoagulation Tele phone Fu (Lab INR result) Start: 11-17-2022 End: 11-17-2022 Emergency department patient visit NONE PHYSICIAN Facility:B Start: 11-17-2022 End: 11-17-2022 Emergency department patient visit STERLING LYNCH DO [facility] Start: 11-07-2022 Telephone encounter Senia Cross RPh [...] result Start: 09-26-2022 Telephone encounter [facility] Comment on above: Anticoagulation Tele phone Fu (Lab INR result) Start: 09-12-2022 Telephone encounter [facility] Comment on above: Anticoagulation Tele phone Fu (Lab INR result) Start: 08-26-2022 End: 08-26-2022 Patient encounter procedure Stas Mora MD Work Phone: [facility] Comment on above: Encounter for Medica re [...] Start: 07-04-2022 Telephone encounter Lety Brady Juliocesar [facility] Comment on above: Anticoagulation Tele phone Fu (Lab INR result ) Start: 06-23-2022 Refill Elvis RASHID RN.GUEST ATTENDANT Work Phone: [facility] Comment on above: Refill Request Start: 06-20-2022 Telephone encounter Senia Cross [facility] Comment on above: Anticoagulation Tele phone Fu (INR Lab Result) Start: 06-06-2022 Telephone encounter Senia Cross [facility] Comment on above: Anticoagulation Tele phone Fu (INR Lab Result) Start: 05-30-2022 Telephone encounter Stas miranda MD Work Phone: [facility] Comment on above: Opened In Error Start: 05-22-2022 Telephone encounter Jenna Geovany nhof SAMPLE CUTTER.GUEST ATTENDANT Work Phone: Family [facility] [place] Comment on above: Results (X-ray hip) Start: 05-21-2022 End: 05-21-2022 Subsequent hospital visit by physician Jaymie [facility] [place] Work Phone: Radiology Comment on above: Left hip pain [M25.5 52] Start: 05-21-2022 ambulatory Fani Grace RN NURSE O N CALL Comment on above: Fall Fall; Hip Pain Start: 05-19-2022 Telephone encounter Stas miranda MD Work Phone: [facility] [place] Comment on above: Anticoagulation Start: 05-16-2022 Telephone encounter Senia Cross [facility] Comment on above: Anticoagulation Tele phone Fu Start: 05-02-2022 Telephone encounter Senia Phillips [facility] Amb[facility] Tele[facility] Comment on above: Anticoagulation Tele phone Fu (INR Lab Result) Start: 04-18-2022 Telephone encounter Senia Phillips [facility] Amb[facility] Telemanagement Comment on above: Anticoagulation Tele phone Fu (INR Lab Result) Start: 04-04-2022 Telephone encounter Elise Paredes [facility] Comment on above: Anticoagulation Tele phone Fu (Lab INR) Start: 03-31-2022 Telephone encounter Stas miranda MD Work Phone: [facility] [place] Comment on above: Release Of Medical R ecords (ND PCP) Start: 03-21-2022 Telephone encounter Carmelina Cruz [facility] Comment on above: Anticoagulation Tele phone Fu Start: 02-21-2022 Telephone encounter Kristian Ferguson MD Work Phone: [facility] [place] Comment on above: Anticoagulation Start: 02-10-2022 Telephone encounter Stas miranda MD Work Phone: [facility] [place] Comment on above: Opened In Error Start: 01-27-2022 Telephone encounter [facility] Comment on above: Anticoagulation Tele phone Fu (Lab INR Result) Start: 01-20-2022 Telephone encounter [facility] Comment on above: Anticoagulation Tele phone Fu (Lab INR Result) Start: 01-17-2022 Telephone encounter Stas miranda MD Work Phone: [facility] [place] Comment on above: Anticoagulation; Cri tical Results (INR) Start: 01-13-2022 Refill Stas newman MD Work Phone: [facility] [place] Comment on above: Refill Request; Refi ll Request Start: 01-03-2022 Telephone encounter Senia Phillips [facility] Tele[facility] Comment on above: Anticoagulation Tele phone Fu (INR Home Test Result) Start: 01-02-2022 Telephone encounter Stas miranda MD Work Phone: [facility] [place] Comment on above: Results Start: 12-26-2021 End: 12-26-2021 Patient encounter procedure Stas Mora MD Work Phone: [facility] Comment on above: Hospital discharge f ollow-up (Primary Dx); Encounter for immunization; TIA (transient ischemic attack); Thyroid nodule; Essential hypertension, benign; Paroxysmal atrial fibrillation (HCC); Atherosclerosis 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, unspecified vessel or lesion type, unspecified whether [place] or transplanted heart Start: 12-22-2021 Non-patient / Non-visit Dr. Maria E Mora Work Phone: [facility] Start: 12-21-2021 Non-patient / Non-visit Dr. Maria E Mora Work Phone: [facility] Start: 12-21-2021 End: 12-22-2021 Evaluation and management of inpatient [facility] Start: 12-21-2021 End: 12-22-[address] Stas Mora Work Phone: [facility] Work Phone: Start: 12-20-2021 Telephone encounter Stas miranda MD Work Phone: [facility] Comment on above: Opened In Error Anticoagulation Tele phone Fu (INR Lab Result) Start: 12-06-2021 Telephone encounter Senia Phillips [facility] Comment on above: Anticoagulation Tele phone Fu (INR Lab Result) Start: 11-22-2021 Telephone encounter Janice Huang [facility] Comment on above: Anticoagulation Tele phone Fu (INR) Start: 11-08-2021 Telephone encounter Stas miranda MD Work Phone: [facility] Comment on above: Opened In Error Anticoagulation Tele phone Fu (INR Lab Result) Start: 10-25-2021 Telephone encounter Janice Huang [facility] Comment on above: Anticoagulation Tele phone Fu (lab INR ) Start: 09-27-2021 Telephone encounter Yomi Wills [facility] Comment on above: Anticoagulation Tele phone Fu (Lab INR Result) Start: 09-13-2021 Orders Only Stas newman MD Work Phone: [facility] [place] Comment on above: donor specialist current us e of anticoagulant (Primary Dx); Encounter for monitoring Coumadin therapy Anticoagulation Tele phone Fu (INR Lab Result) Start: 09-05-2021 End: 09-05-2021 Patient encounter procedure Stas Mora MD Work Phone: [facility] [place] Comment on above: Encounter for Medica re annual wellness exam (Primary Dx); Paroxysmal atrial fibrillation (HCC); Essential hypertension, benign Start: 08-30-2021 Telephone encounter Jenna Armenta nhof SAMPLE CUTTER.GUEST ATTENDANT Work Phone: [facility] [place] Comment on above: Orders (INR ) Anticoagulation Tele phone Fu (INR Lab Result) Start: 08-16-2021 Orders Only Stas newman MD Work Phone: [facility] [place] Comment on above: Anticoagulation Start: 08-02-2021 Telephone encounter Senia Phillips [facility] Comment on above: Anticoagulation Tele phone Fu (INR Lab Result) Start: 07-16-2021 Telephone encounter Stas miranda MD Work Phone: [facility] [place] Comment on above: Results Start: 07-13-2021 Refill Elvis RASHID RN.GUEST ATTENDANT Work Phone: [facility] [place] Comment on above: Refill Request Start: 07-08-2021 End: 07-08-2021 Patient encounter procedure Stas Mora MD Work Phone: [facility] [place] Comment on above: Essential hypertensi on, benign (Primary Dx); Atherosclerosis 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, unspecified vessel or lesion type, unspecified whether [place] or transplanted heart; Paroxysmal atrial fibrillation (HCC); Primary osteoarthritis of both knees Start: 07-03-2021 Telephone encounter Stas miranda MD Work Phone: [facility] [place] Comment on above: Anticoagulation Tele phone Fu (Lab INR result) Start: 06-12-2021 Telephone encounter Stas miranda MD Work Phone: [facility] [place] Comment on above: Anticoagulation (Lab INR result) Start: 03-12-2020 End: 03-12-2020 Subsequent hospital visit by physician Jaymie [facility] [place] Work Phone: Radiology Comment on above: Acute right-sided lo w back pain, unspecified whether sciatica present [M54.5] Start: 02-02-2018 Ambulatory DARRELL OLIVEIRA Facility :[facility] Start: 06-02-2017 End: 06-02-2017 [facility] DARRELL OLIVEIRA [facility] Procedures Date Procedure Procedure Detail Performing Clinician Start: 09-06-[address] Stas Mora MD Work Phone: Start: 09-05-2024 Urnls dip stick/tabl et reagent auto microscopy Dr. Stas Mora MD Work Phone: Start: 09-01-[address] Stas Mora MD Work Phone: Start: 09-01-[address] Stas Mora MD Work Phone: Start: 09-01-[address] Sats Mora MD Work Phone: Start: 09-01-2024 Urnls [...] Adult depression scr eening assessment Coretta Jalloh [facility] Start: 02-17-2023 Mri brain brain stem w/o contrast material Stas Mora MD Work Phone: Start: 02-10-2023 Plain chest X-ray Start: 02-10-2023 SARS-CoV-2 & FLU Ant igen (Rapid) Start: 05-21-2022 Radex hip unilateral with pelvis 2-3 views Jenna Amari SAMPLE CUTTER.GUEST ATTENDANT Work Phone: Start: 05-19-2022 PROTHROMBIN TIME/PT Ccf [...] Detail Author Start: 02-27-2031 Urine microalbumin profile [facility] Start: 05-26-2027 Diabetes Screening Diabetes Screenin [facility] Start: 06-02-2026 Diabetes Screening Diabetes Screenin g [facility] Start: 08-15-2025 DIABETES SCREEN DIABETES SCREEN [facility] Start: 08-15-2025 Diabetes Screening Diabetes Screenin g [facility] Start: 05-25-2025 Hepatitis B surface antibody level LDL Cholesterol [facility] Start: 03-30-2025 End: 03-30-2025 Patient encounter procedure 03/30/2025 11:00 AM EST Office Visit Geriatrics [address] [place] [id number] Luciana Cisneros MD [address] [place] [address] follow up 6 months Geriatrics Comment on above: follow up 6 months Start: 02-21-2025 DIABETES SCREEN DIABETES SCREEN [facility] Start: 12-06-2024 DIABETES SCREEN DIABETES SCREEN [facility] Start: 12-05-2024 End: 12-05-2024 Patient encounter procedure 12/05/2024 12:40 PM EDT Office Visit [facility] [address] [facility] [place] [address] Stas Mora MD [address] [place] [address] reschedule from 12/01 [facility] Comment on above: reschedule from 12/01 Start: 12-01-2024 End: 12-01-2024 Patient encounter procedure 12/01/2024 9:40 AM EDT Office Visit [facility] [address] [place], [place] [address] Stas Mora MD [address] [place] [address] 6 mo f/u [facility] Comment on above: 6 mo f/u Start: 11-26-2024 End: 02-25-2025 CBC W Auto Differential panel - Blood COMPLETE BLOOD COUNT AND DIFFERENTIAL Lab Routine Essential hypertension, benign Expected: 11/26/2024 (Approximate), Expires: 02/25/2025 [facility] Comment on above: Expected: 11/26/2024 (Approximate), Expires: 02/25/2025 Start: 11-26-2024 End: 02-25-2025 Comprehensive metabolic 2000 panel - Serum or Plasma COMPREHENSIVE METABOLIC PANEL Lab Routine Essential hypertension, benign Hyperlipidemia, unspecified hyperlipidemia type Expected: 11/26/2024 (Approximate), Expires: 02/25/2025 [facility] Work Phone: Comment on above: Expected: 11/26/2024 (Approximate), Expires: 02/25/2025 Start: 11-26-2024 End: 02-25-2025 Lipid 1996 panel - Serum or Plasma LIPID PANEL BASIC Lab Routine Essential hypertension, benign Hyperlipidemia, unspecified hyperlipidemia type Expected: 11/26/2024 (Approximate), Expires: 02/25/2025 [facility] Comment on above: Expected: 11/26/2024 (Approximate), Expires: 02/25/2025 Start: 11-25-2024 RSV Vaccine (1 - 1-d ose 60+ series) RSV Vaccine (1 - 1-dose 60+ series) [facility] Comment on above: Postponed from 08/12 (Declined at this time) Start: 11-25-2024 RSV Vaccine (1 - 1-d ose 75+ series) RSV Vaccine (1 - 1-dose 75+ series) [facility] Comment on above: Postponed from 08/12 (Declined at this time) Start: 11-21-2024 Influenza vaccination Influenza Vacc ine (#1) [facility] Start: 09-06-2024 Patient discharge [facility] Start: 09-02-2024 Admission procedure [facility] Start: 09-01-2024 End: 09-02-2024 [facility] Start: 09-01-2024 Blood culture Blood Culture [facility] Start: 09-01-2024 Application of intermittent pneumatic compression device [facility] Start: 09-01-2024 Fall prevention [facility] Start: 09-01-2024 Oxygen therapy [facility] Start: 09-01-2024 Provision of activit y privileges [facility] Start: 09-01-2024 Assessment of risk o f venous thromboembolism [facility] Start: 09-01-2024 Insertion of cathete r into peripheral vein [facility] Start: 09-01-2024 Providing care accor ding to standard [facility] Start: 09-01-2024 Referral to occupati onal therapist [facility] Start: 09-01-2024 Referral to service [facility] Start: 09-01-2024 [facility] Start: 09-01-2024 Following clinical pathway protocol [facility] Start: 09-01-2024 Admission procedure [facility] Start: 09-01-2024 Hospital admission, emergency, from emergency room, medical nature [facility] Start: 08-31-2024 End: 08-31-2024 Patient encounter procedure 08/31/2024 11:00 AM EDT Office Visit Geriatrics [address] [facility] [place] [address] Luciana Cisneros MD [address] [facility] [place], [place] [id number] 3 month f/u Geriatrics Comment on above: 3 month f/u Start: 2024 Anxiety Screening Anxiety Screening [facility] Start: 2024 Depression Screening Depression Scre ening [facility] Start: 07-08-2024 DIABETES SCREEN DIABETES SCREEN [facility] Start: 06-02-2024 Hepatitis B surface antibody level LDL Cholesterol [facility] Start: 06-01-2024 End: 06-01-2024 Patient encounter procedure 06/01/2024 3:00 PM EDT Office Visit Geriatrics [address] [facility] [place] [address] Luciana Cisneros MD [address] [facility] [place] [address] Follow up visit for MRI [facility]iatric[facility] Comment on above: Follow up visit for MRI Start: 06-01-2024 Covid-19 Vaccine ( season) Covid-19 Vaccine () [facility] Start: 05-30-2024 End: 05-30-2024 Patient encounter procedure 05/30/2024 11:20 AM EDT Office Visit [facility] [place] [address] [facility] [place] [address] Luciana Cisneros MD [address] [facility] [place] [address] Follow up visit for MRI [facility] [place] Comment on above: Follow up visit for MRI Start: 05-26-2024 End: 05-26-2024 Patient encounter procedure 05/26/2024 9:20 AM EST Office Visit [facility] Medicine [place] [address] [facility] [place], [place] [address] Sats Mora MD [address] [facility] [place], [place] [id number] 6 mo f/u [facility] [place] Comment on above: 6 mo f/u Start: 05-25-2024 End: 08-24-2024 CBC W Auto Differential panel - Blood COMPLETE BLOOD COUNT AND DIFFERENTIAL Lab Routine Abnormal CBC Expected: 05/25/2024 (Approximate), Expires: 08/24/2024 [facility] Comment on above: Expected: 05/25/2024 (Approximate), Expires: 08/24/2024 Start: 05-25-2024 End: 08-24-2024 Comprehensive metabolic 2000 panel - Serum or Plasma COMPREHENSIVE METABOLIC PANEL Lab Routine Essential hypertension, benign Hyperlipidemia, unspecified hyperlipidemia type Expected: 05/25/2024 (Approximate), Expires: 08/24/2024 [facility] Work Phone: Comment on above: Expected: 05/25/2024 (Approximate), Expires: 08/24/2024 Start: 05-25-2024 End: 08-24-2024 Lipid 1996 panel - Serum or Plasma LIPID PANEL BASIC Lab Routine Essential hypertension, benign Hyperlipidemia, unspecified hyperlipidemia type Expected: 05/25/2024 (Approximate), Expires: 08/24/2024 [facility] Comment on above: Expected: 05/25/2024 (Approximate), Expires: 08/24/2024 Start: 05-25-2024 End: 05-25-2024 ambulatory 05/25/2024 8:30 AM EST Results Only [facility] [address] [facility] [place] [address] [facility] Start: 05-23-2024 End: 05-23-2024 Patient encounter procedure 05/23/2024 2:30 PM EST Appointment [facility] [address] [place] [address] Cognitive impairment, mild, 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] [facility] Comment on above: Cognitive impairment , mild, 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] Start: 04-29-2024 End: 04-29-2024 Patient encounter procedure 04/29/2024 3:40 PM EST Office Visit Family [facility] [address] [facility] [place] [address] Stas Mora MD [address] [facility] [address] memory issues,See TE [facility] [place] Comment on above: memory issues,See TE Start: 04-27-2024 End: 04-27-2024 Patient encounter procedure 04/27/2024 9:30 AM EST Office Visit Geriatrics [address] [place], [place] [id number] Luciana Cisneros MD [address] [place], [place] [id number] Dementia, unspecified dementia severity, unspecified dementia type, unspecified whether behavioral, psychotic, or mood disturbance or anxiety (HCC) [F03.90] Geriatrics Comment on above: Dementia, unspecifie d dementia severity, unspecified dementia type, unspecified whether behavioral, psychotic, or mood disturbance or anxiety (HCC) [F03.90] Start: 03-23-2024 Advance Directive Discussion Advance Directive Discussion [facility] Start: 03-23-2024 Medicare Advantage A nnual Wellness Visit Medicare Advantage Annual Wellness Visit [facility] Start: 03-13-2024 DIABETES SCREEN DIABETES SCREEN [facility] Start: 11-26-2023 End: 11-26-2023 Patient encounter procedure [facility] [place] Comment on above: 6 month follow up 6 month follow up, jessica bashir, on aricept x 3 months Start: 11-22-2023 Covid-19 Vaccine ( season) Covid-19 Vaccine ( season) [facility] Start: 11-22-2023 Influenza vaccination Influenza Vacc ine (#1) [facility] Start: 09-15-2023 End: 09-15-2023 Patient encounter procedure 09/15/2023 8:40 AM EDT Office Visit [facility] [place] [address] [place] [address] Stas Mora MD [address] [place], [place] [phone] leg swelling- both legs--See triage 09/14/2023. [facility] [place] Comment on above: leg swelling- both l egs--See triage 09/14/2023. Start: 08-16-2023 Hepatitis B surface antibody level LDL CHOLESTEROL [facility] Start: 08-14-2023 End: 08-14-2023 Patient encounter procedure 08/14/2023 10:00 AM EDT Office Visit [facility] [place] [address] [place] [address] Stas Mora MD [address] [facility] [place] [id number] Memory Issues [facility] [place] Comment on above: Memory Issues Start: 06-04-2023 End: 09-03-2023 Ferritin [Mass/volume] in Serum or Plasma [facility] Work Phone: Comment on above: Expected: 06/04/2023 , Expires: 09/03/2023 Start: 06-04-2023 End: 09-03-2023 Iron and Iron binding capacity panel - Serum or Plasma [facility] Work Phone: Comment on above: Expected: 06/04/2023 , Expires: 09/03/2023 Start: 06-01-2023 End: 08-31-2023 CBC panel - Blood by Automated count CBC Lab Routine Paroxysmal atrial fibrillation (HCC) Essential hypertension, benign Expected: 06/01/2023 (Approximate), Expires: 08/31/2023 [facility] Work Phone: Comment on above: Expected: 06/01/2023 (Approximate), Expires: 08/31/2023 Start: 06-01-2023 End: 08-31-2023 Comprehensive metabolic 2000 panel - Serum or Plasma COMP METABOLIC PANEL Lab Routine Paroxysmal atrial fibrillation (HCC) Essential hypertension, benign Hyperlipidemia, unspecified hyperlipidemia type Expected: 06/01/2023 (Approximate), Expires: 08/31/2023 [facility] Work Phone: Comment on above: Expected: 06/01/2023 (Approximate), Expires: 08/31/2023 Start: 06-01-2023 End: 08-31-2023 Lipid 1996 panel - Serum or Plasma LIPID PANEL BASIC Lab Routine Paroxysmal atrial fibrillation (HCC) Essential hypertension, benign Hyperlipidemia, unspecified hyperlipidemia type Expected: 06/01/2023 (Approximate), Expires: 08/31/2023 [facility] Work Phone: Comment on above: Expected: 06/01/2023 (Approximate), Expires: 08/31/2023 Start: 05-13-2023 Covid-19 Vaccine () Covid-19 Vaccine () [facility] Start: 03-23-2023 Advance Directive Discussion Advance Directive Discussion [facility] Start: 03-23-2023 Behavioral Health Screening Behavioral Health Screening [facility] Start: 03-23-2023 Depression Assessment Depression Ass essment [facility] Start: 02-21-2023 Hepatitis B surface antibody level LDL CHOLESTEROL [facility] Start: 02-10-2023 [facility] Start: 12-06-2022 Hepatitis B surface antibody level LDL CHOLESTEROL [facility] Start: 11-21-2022 Covid-19 Vaccine () Covid-19 Vaccine () [facility] Start: 11-21-2022 Influenza vaccination [facility] Start: 09-05-2022 PNEUMOCOCCAL: 65+ (2 - PCV) PNEUMOCOCCAL: 65+ (2 - PCV) [facility] Comment on above: Postponed from 02/21 (Declined at this time) Start: 07-08-2022 Hepatitis B surface antibody level LDL CHOLESTEROL [facility] Start: 04-26-2022 COVID-19 VACCINE (6 - Pfizer series) COVID-19 VACCINE (6 - Pfizer series) [facility] Start: 03-23-2022 ADVANCE DIRECTIVE DISCUSSION ADVANCE DIRECTIVE DISCUSSION [facility] Start: 03-23-2022 DEPRESSION ASSESSMENT DEPRESSION ASS ESSMENT [facility] Start: 03-13-2022 Hepatitis B surface antibody level LDL CHOLESTEROL [facility] Start: 03-10-2022 End: 05-10-2022 CBC panel - Blood by Automated count CBC Lab Routine TIA (transient ischemic attack) Essential hypertension, benign Atherosclerosis 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, unspecified vessel or lesion type, unspecified whether [place] or transplanted heart Expected: 03/10/2022 (Approximate), Expires: 05/10/2022 [facility] Work Phone: Comment on above: Expected: 03/10/2022 (Approximate), Expires: 05/10/2022 Start: 03-10-2022 End: 05-10-2022 Comprehensive metabolic 2000 panel - Serum or Plasma COMP METABOLIC PANEL Lab Routine TIA (transient ischemic attack) Essential hypertension, benign Atherosclerosis 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, unspecified vessel or lesion type, unspecified whether [place] or transplanted heart Expected: 03/10/2022 (Approximate), Expires: 05/10/2022 [facility] Work Phone: Comment on above: Expected: 03/10/2022 (Approximate), Expires: 05/10/2022 Start: 03-10-2022 End: 05-10-2022 Lipid 1996 panel - Serum or Plasma LIPID PANEL BASIC Lab Routine TIA (transient ischemic attack) Essential hypertension, benign Atherosclerosis 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, unspecified vessel or lesion type, unspecified whether [place] or transplanted heart Expected: 03/10/2022 (Approximate), Expires: 05/10/2022 [facility] Work Phone: Comment on above: Expected: 03/10/2022 (Approximate), Expires: 05/10/2022 Start: 01-03-2022 End: 03-05-2022 Comprehensive metabolic 2000 panel - Serum or Plasma COMP METABOLIC PANEL Lab Routine Atherosclerosis 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, unspecified vessel or lesion type, unspecified whether [place] or transplanted heart Essential hypertension, benign Expected: 01/03/2022 (Approximate), Expires: 03/05/2022 [facility] Work Phone: Comment on above: Expected: 01/03/2022 (Approximate), Expires: 03/05/2022 Start: 01-03-2022 End: 03-05-2022 LIPID PANEL BASIC LIPID PANEL BASIC Lab Routine Atherosclerosis 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, unspecified vessel or lesion type, unspecified whether [place] or transplanted heart Essential hypertension, benign Expected: 01/03/2022 (Approximate), Expires: 03/05/2022 [facility] Work Phone: Comment on above: Expected: 01/03/2022 (Approximate), Expires: 03/05/2022 Start: 12-24-2021 Prothrombin time [facility] Work Phone: Start: 12-23-2021 Prothrombin time [facility] Work Phone: Start: 12-22-2021 Patient discharge [facility] Work Phone: Start: 12-21-2021 Assessment of risk o f venous thromboembolism [facility] Work Phone: Start: 12-21-2021 Cardiac monitoring [facility] Work Phone: Start: 12-21-2021 Catheterization of vein [facility] Work Phone: Start: 12-21-2021 Continuous pulse oximetry [facility] Work Phone: Start: 12-21-2021 Elevation of head of bed [facility] Work Phone: Start: 12-21-2021 Exercises [facility] Work Phone: Start: 12-21-[address] anned interventions [facility] Work Phone: Start: 12-21-2021 Insertion of cathete r into peripheral vein [facility] Work Phone: Start: 12-21-2021 Measuring intake and output [facility] Work Phone: Start: 12-21-2021 Notification of physician [facility] Work Phone: Start: 12-21-2021 Oxygen therapy [facility] Work Phone: Start: 12-21-2021 Providing care accor ding to standard [facility] Work Phone: Start: 12-21-2021 Provision of activit y privileges [facility] Work Phone: Start: 12-21-2021 Referral to occupati onal therapist [facility] Work Phone: Start: 12-21-2021 Referral to service [facility] Work Phone: Start: 12-21-2021 Tobacco use cessatio n education [facility] Work Phone: Start: 12-21-2021 [facility] Start: [facility] Start: 12-21-2021 End: 12-21-2021 Following clinical pathway protocol [facility] Work Phone: Start: 12-21-2021 Verification routine [facility] Work Phone: Start: 12-21-2021 [facility] Start: 12-21-2021 CT of head without contrast STROKE Brain/Head without Cont [facility] Work Phone: Start: 12-21-2021 CT Unspecified body region WO contrast [facility] Work Phone: Start: 12-21-2021 Oxygen therapy [facility] Work Phone: Start: 12-21-2021 End: 12-22-2021 [facility] Work Phone: Start: 11-21-2021 Influenza vaccination INFLUENZA (#1) [facility] Start: 09-24-2021 COVID-19 VACCINE (5 - Booster for Pfizer series) COVID-19 VACCINE (5 - Booster for Pfizer series) [facility] Start: 08-30-2021 End: 10-30-2021 PT panel - Platelet poor plasma by Coagulation assay [facility] Work Phone: Comment on above: Expected: 08/30/2021 , Expires: 10/30/2021 Start: 07-08-2021 End: 09-07-2021 Comprehensive metabolic 2000 panel - Serum or Plasma [facility] Work Phone: Comment on above: Expected: 07/08/2021 (Approximate), Expires: 09/07/2021 Start: 07-08-2021 End: 09-07-2021 LIPID PANEL BASIC [facility] Work Phone: Comment on above: Expected: 07/08/2021 (Approximate), Expires: 09/07/2021 Start: 04-27-2021 COVID-19 VACCINE (4 - Booster for Pfizer series) COVID-19 VACCINE (4 - Booster for Pfizer series) [facility] Start: 03-23-2021 ADVANCE DIRECTIVE DISCUSSION ADVANCE DIRECTIVE DISCUSSION [facility] Start: 03-23-2021 DEPRESSION ASSESSMENT DEPRESSION ASS ESSMENT [facility] Start: 02-21-2009 Pneumococcal Vaccine : 65+ (2 - PCV) Pneumococcal Vaccine: 65+ (2 - PCV) [facility] Start: 02-21-2009 PNEUMOCOCCAL: 65+ (2 - PCV) PNEUMOCOCCAL: 65+ (2 - PCV) [facility] Start: 02-23-2008 Urine microalbumin profile DTAP,TDAP,TD (1 - Tdap) [facility] Start: 1995 RSV Vaccine (1 - 1-d ose 60+ series) RSV Vaccine (1 - 1-dose 60+ series) [facility] Start: 08-12-1985 SHINGRIX VACCINE (1 of 2) VALDES GRIX VACCINE (1 of 2) [facility] Hemoglobin.gastroint estin al.lower [Presence] in Stool by Immunoassay FECAL OCCULT BLOOD TEST Lab Routine Abnormal CBC 06/04/2023 2:13 PM EDT [facility] Work Phone: End: 05-27-2025 MR Brain WO contrast MRI BRAIN W QUANT WO IVCON Radiology Routine Cognitive impairment, mild, so stated 1 Occurrences starting 04/27/2024 until 05/27/2025 [facility] Work Phone: Comment on above: 1 Occurrences starti ng 04/27/2024 until 05/27/2025 End: 05-27-2025 MR Unspecified body region 3D post processing MRI 3D BRAIN QUANT Radiology Routine Cognitive impairment, mild, so stated 1 Occurrences starting 04/27/2024 until 05/27/2025 [facility] Comment on above: 1 Occurrences starti ng 04/27/2024 until 05/27/2025 End: 03-17-2024 Mri brain brain stem w/o contrast material MRI BRAIN WO IVCON Radiology STAT Cerebral infarction, unspecified mechanism (HCC) 1 Occurrences starting 02/16/2023 until 03/17/2024 [facility] Work Phone: Comment on above: 1 Occurrences starti ng 02/16/2023 until 03/17/2024 Mri brain brain stem w/o contrast material MRI BRAIN WO IVCON Radiology STAT Cerebral infarction, unspecified mechanism (HCC) 02/17/2023 8:13 AM EST [facility] Work Phone: Patient Education ED Weakness (U ncertain Cause) [facility] Work Phone: Patient referral [facility] Work Phone: End: 09-13-2022 PT panel - Platelet poor plasma by Coagulation assay PROTHROMBIN TIME/PT Lab Routine snf current use of anticoagulant Encounter for monitoring Coumadin therapy Once per week for 99 Occurrences starting 09/13/2021 until 09/13/2022 [facility] Work Phone: Comment on above: Once per week for 99 Occurrences starting 09/13/2021 until 09/13/2022 PT panel - Platelet poor plasma by Coagulation assay PROTHROMBIN TIME/PT Lab Routine 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 Encounter for monitoring Coumadin therapy 09/13/2021 8:42 AM EDT [facility] Work Phone: End: 01-16-2024 PT panel - Platelet poor plasma by Coagulation assay PROTHROMBIN TIME/PT Lab Routine snf current use of anticoagulant Paroxysmal atrial fibrillation (HCC) Once per week for 99 Occurrences starting 01/16/2023 until 01/16/2024 [facility] Work Phone: Comment on above: Once per week for 99 Occurrences starting 01/16/2023 until 01/16/2024 End: 12-23-2024 PT panel - Platelet poor plasma by Coagulation assay PROTHROMBIN TIME Lab STAT 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 24 Occurrences starting 12/24/2023 until 12/23/2024 [facility] Work Phone: Comment on above: 24 Occurrences start ing 12/24/2023 until 12/23/2024 End: 01-25-2023 Us soft tissue head & neck real time imge docm US THYROID/PARATHYROID Radiology Routine Thyroid nodule 1 Occurrences starting 12/26/2021 until 01/25/2023 [facility] Work Phone: Comment on above: 1 Occurrences starti ng 12/26/2021 until 01/25/2023 [facility] Immunizations Immunization Date Immunization Notes Care Provider Rich vargas 12-03-2023 influenza virus vacc ine, unspecified formulation Stas Mora MD Work Phone: [facility] 01-10-2023 influenza (HD-IIV4) vaccine, age 65+ yr, high dose, quadrivalent, PF (FLUZONE HIGH-DOSE) [facility] 01-10-2023 influenza virus vacc ine, unspecified formulation [facility] 12-26-2021 influenza, high-dose , quadrivalent vaccine (FLUZONE HIGH DOSE QUADRIVALENT) Stas Mora MD Work Phone: [facility] 12-26-2021 influenza virus vacc ine, unspecified formulation Senia Alan [facility] 02-27-2021 tetanus toxoid, redu natividad diphtheria toxoid, and acellular pertussis vaccine, adsorbed Stas Mora MD Work Phone: [facility] 02-27-2021 zoster vaccine recombinant Stas Mora MD Work Phone: [facility] 12-25-2020 Covid (Pfizer) Dr. Stas gonzales Work Phone: [facility] 12-10-2020 influenza (HD-IIV4) vaccine, age 65+ yr, high dose, quadrivalent, PF (FLUZONE HIGH-DOSE) Coretta Jalloh [facility] 12-10-2020 influenza, high dose seasonal, preservative-free Stas Mora MD Work Phone: [facility] 09-17-2020 zoster vaccine recombinant Stas Mora MD Work Phone: [facility] 05-09-2020 Covid (Pfizer) Dr. Stas gonzales Work Phone: [facility] 04-18-2020 Covid (Pfizer) Dr. Stas gonzales Work Phone: [facility] 12-24-2016 influenza, high dose seasonal, preservative-free Stas Mora MD Work Phone: [facility] 12-22-2015 Influenza virus vaccine [facility] 12-22-2015 influenza, seasonal, injectable, preservative free Stas Mora MD Work Phone: [facility] Work Phone: 01-30-2014 influenza, high dose seasonal, preservative-free Stas Mora MD Work Phone: [facility] Work Phone: 01-24-2013 influenza virus vacc ine, unspecified formulation Stas Mora MD Work Phone: [facility] 02-22-2008 pneumococcal polysaccharide vaccine, 23 valent Stas Mora MD Work Phone: [facility] Work Phone: 02-22-2008 tetanus and diphther ia toxoids, adsorbed, preservative free, for adult use (2 Lf of tetanus toxoid and 2 Lf of diphtheria toxoid) Stas Mora MD Work Phone: [facility] Work Phone: Payers Date Payer Category Payer Self-pay [id number] 2022 Unknown [id number] 2016 Medicare [employer] [place] [id number] 2016-Present [phone] [address] [place] [address] [facility] [id number] 2016 Medicare [employer] [place] [id number] 2016-Present [phone] [address] [place] [address] HMO [id number] 2016 [place] [id number] 2016 Medicare [id number] 1935 Unknown [id number]. 2.627 1935 Unknown [id number] 2.0.1.385430.3.579. 2.627 Unknown VA AUTH REQUIR ED SEE NOTE [id number] Unknown [place] AUTH REQUIR ED SEE NOTE . [id number] Unknown [id number]. 2.462 Unknown [id number] 2.0.1.214512.3.579. 2.462 Unknown [id number] 2.0.1.473635.3.579. 2.462 Unknown [id number] 2.840.1.534352.3.579. 2.462 Unknown [id number] 2.840.1.885765.3.579. 2.462 Unknown [id number] 2.0.1.915212.3.579. 2.462 Unknown [id number] 2.16.840.1.196004.3.579. 2.462 Unknown [id number] 2.16.840.1.709257.3.579. 2.462 Unknown [id number] 2.16.840.1.681639.3.579. 2.462 Unknown [id number] 2.16.840.1.926324.3.579. 2.462 Unknown [id number] 2.16.840.1.752776.3.579. 2.462 Unknown [id number] 2.16.840.1.539327.3.579. 2.462 Unknown [id number] 2.16.840.1.609226.3.579. 2.462 Unknown [id number] 2.16.840.1.883856.3.579. 2.462 Unknown [id number] 2.16.840.1.019052.3.579. 2.462 Unknown [id number] 2.16.840.1.635471.3.579. 2.462 Unknown [id number] 2.16.840.1.829272.3.579. 2.462 Unknown [id number] 2.16.840.1.951649.3.579. 2.462 Unknown [id number] 2.16.840.1.888468.3.579. 2.462 Unknown [id number] 2.16.840.1.902445.3.579. 2.462 Unknown [id number] 2.16.840.1.240243.3.579. 2.462 Unknown [id number] 2.16.840.1.231873.3.579. 2.462 Unknown [id number] 2.16.840.1.126319.3.579. 2.462 Social History Date Type Detail Facility Start: 05-04-2017 End: 09-01-2024 Tobacco smoking status TXIS Ex-smoker [facility] Start: 02-15-2021 End: 07-28-2024 Alcohol intake Current non-drinker of alcohol (finding) [facility] Start: 08-26-2020 End: 08-29-2021 History SDOH Alcohol Frequency 2 [facility] Start: 08-26-2020 End: 08-29-2021 History SDOH Alcohol Std Drinks 1 [facility] Start: 08-26-2020 End: 08-29-2021 History SDOH Social Connections Mu-Ism 3 [facility] Start: 08-26-2020 End: 08-29-2021 History SDOH Social Connections Living 5 [facility] Start: 08-26-2020 History SDOH Physical Activity MPS 6 [facility] Start: 08-26-2020 Education 12 [facility] Start: 1935 Sex Assigned At Male [facility] Start: 02-11-2020 End: 12-26-2021 Exposure to SARS-CoV-2 (event) Not sure [facility] History of tobacco use Current smoker [facility] Start: 05-04-2017 End: 12-26-2021 Tobacco use and exposure Smokeless tobacco non-user [facility] Start: 12-21-2021 End: 02-10-2023 Tobacco smoking status NHIS Unknown if ever smoked [facility] Start: 12-22-2021 Non-smoker [facility] Start: 12-26-2021 Tobacco Comment 30 yaers ago [facility] Start: 02-28-2020 End: 08-29-2021 History of Social function [facility] Start: 02-28-2020 End: 08-29-2021 Social connection and isolation panel [facility] Do you belong to any clubs or organizations such as restorationist groups, unions, fraternal or athletic groups, or school groups? No [facility] Are you now , , , , never or living with a partner? [facility] How often to you hav e a drink containing alcohol? Monthly or less [facility] How many standard dr inks containing alcohol do you have on a typical day? 1 or 2 [facility] How often do you hav e 6 or more drinks on 1 occasion? Never [facility] How hard is it for y ou to pay for the very basics like food, housing, medical care, and heating Not hard at all [facility] Do you feel stress - tense, restless, nervous, or anxious, or unable to sleep at night because your mind is troubled all the time - these days [OSQ] Not at all [facility] (I/We) worried velvet er (my/our) food would run out before (I/we) got money to buy more. Never true [facility] Start: 08-26-2020 Gender identity Identifies as male gender (finding) [facility] Start: 08-26-2020 Sexual orientation Heterosexual (finding) [facility] Sex Assigned At [facility] Are you now , , , , never or living with a partner? [facility] How often to you hav e a drink containing alcohol? 2-4 times a month [facility] Goals Date Patient Goal Desired Activity /State Functional Status Date Assessment Result Facility 09-06-2024 Functional status Ambulates [facility] Work Phone: 07-26-2024 Total score [AUDIT-C] 1 07/27/19 6:26 PM EDT [facility] 07-26-2024 Within the last year , have you been humiliated or emotionally abused in other ways by your partner or ex-partner? No 07/26/2024 6:26 PM EDT User, [facility] 07-26-2024 Within the last year , have you been afraid of your partner or ex-partner? No 07/26/2024 6:26 PM EDT User, [facility] 07-26-2024 Within the last year , have you been raped or forced to have any kind of sexual activity by your partner or ex-partner? No 07/26/2024 6:26 PM EDT [facility] 07-26-2024 Within the last year , have you been kicked, hit, slapped, or otherwise physically hurt by your partner or ex-partner? No 07/26/2024 6:26 PM EDT User, [facility] No [facility] 07-26-2024 How often to you hav e a drink containing alcohol? Monthly or less 07/26/2024 6:26 PM EDT User, Mychart Monthly or less [facility] 07-26-[address] inks containing alcohol do you have on a typical day? 1 or 2 07/26/2024 6:26 PM EDT User, Mychart 1 or 2 [facility] 07-26-2024 How often do you hav e 6 or more drinks on 1 occasion? Never 07/26/2024 6:26 PM EDT User, Mychart Never [facility] 11-17-2022 [facility] 11-17-2022 Functional Status Identified as high risk, Fall ID band on, Room located near nursing station [facility] 12-22-2021 Functional status Ambulates;Chair [facility] Work Phone: 07-02-2016 Are you deaf, or do you have serious difficulty hearing No 07/02/2016 2:52 PM EDT Anita Zhang, DO No [facility] Work Phone: 07-02-2016 Are you blind, or do you have serious difficulty seeing, even when wearing glasses No 07/02/2016 2:52 PM EDT Anita Zhang, DO No [facility] 07-02-2016 Do you have serious difficulty walking or climbing stairs No 07/02/2016 2:52 PM EDT Anita Zhang, DO No [facility] 07-02-2016 Do you have difficul ty dressing or bathing No 07/02/2016 2:52 PM EDT Anita Zhang, DO No [facility] 07-02-2016 Because of a physica l, mental, or emotional condition, do you have difficulty doing errands alone such as visiting a physician's office or shopping No 07/02/2016 2:52 PM EDT Anita Zhang, DO No [facility] Mental Status Date Assessment Result Facility 09-06-2024 Cognitive function Voice/Name [facility] Work Phone: 09-05-2024 Cognitive function Appropriate;Cooperativ e [facility] Work Phone: 02-10-2023 Cognitive function Level Of Cons ciousness Awake;Alert;Appropriate;Fol lows Commands [facility] Work Phone: 11-17-2022 Mental Status Orientation Oriented x 4 [facility] 11-17-2022 Mental Status [facility] 12-22-2021 Cognitive function Voice/Name [facility] Work Phone: 12-21-2021 Cognitive function Voice/Name [facility] Work Phone: 07-02-2016 Because of a physica l, mental, or emotional condition, do you have serious difficulty concentrating, remembering, or making decisions No 07/02/2016 2:52 PM EDT Anita Zhang, DO No [facility] Clinical Notes 03-12-2020 to 09-21-2024 Telephone Encounter - Petty Vargas - 09/21/2024 9:21 AM EDTTelephone Encounter - Petty Vargas - 09/21/2024 9:21 AM EDT Note Date & Type Note Facility 09-21-2024 Telephone encounter Note Form atting of this note might be different from the original. [facility]. Maria Guadalupe states that he has been in there for two weeks. Please advise [facility] 09-21-2024 Miscellaneous Notes Formattin g of this note might be different from the original. [facility] for [facility]. Maria Guadalupe states that he has been in there for two weeks. Please advise documented in this encounter [facility] 09-06-2024 Consult note [facility] 09-06-2024 Consult note Note Date/Time September 06, 2024 4:37pm [facility] Medical Records Department [address] [place] [address] Counseling Note - Pharmacy 09/06/24 1143 MR#: [id number] Acct: [id number] Name: ROBY FLORES Rep #:[id number] : 1935 89 From: Isabelle Summers PCP: Dr. Stas Mora MD Status:AD M IN Y [id number] [place] Med Reconciliation Pharmacy Service has performed discharge [...] Signature (if applicable): Date CC: ~ Signed [facility] Work Phone: 1(549) 605-889406-17-2025 Discharge summary Author Navid Dominguez [facility] Note Date/Time September 06, 2024 11:[address] [place] [address] Health System Medical Records Department [address] [place] [address] Discharge Summary 09/06/24 1109 MR#: [id number] Acct: [id number] Name: ROBY FLORES Rep #:[id number] : 1935 89 From: Navid Trejo PCP: Dr. Stas Mora MD Status:AD M IN Location: [place] [address]-1 Providers Date of Admission: 09/02/24 Date of [...] explained to the patient and his [facility] 09/06: INR 2.4. Hold warfarin today [...] The daughter is the healthcare power of claims attorney. #History of dementia: On rivastigmine #Dyslipidemia: [...] (Auto) 66.8, Lymph % (Auto) 16.4 L, George % (Auto) 9.1, Eos % (Auto) 6.3 [...] Half-Way Facility Charges/Coding Visit Charges Inpatient E&M: 76209 Disch Hosp >30min 09/06/24 1114 <Electronically signed by Navid Dominguez MD> Cosigner Signature (if applicable): CC: Dr. Stas Mora MD; Dr. Navid Dominguez MD~ Signed [facility] Work Phone: 1(175) 388-703306-17-2025 Discharge summary Author Navid Dominguez [facility] Note Date/Time September 06, 2024 11:0 9am [facility] Medical Records Department [address] [place] [address] [facility] MR#: [id number] Acct: [id number] Name: ROBY FLORES Rep #:[id number] : 1935 89 From: Navid Trejo PCP: Dr. Stas Mora MD Status:AD M IN Certification of patient admission REQUIRED AT TIME OF ADMISSION. I CERTIFY THAT POST-HOSPITAL ECF SERVICES ARE REQUIRED TO BE GIVEN ON AN IN-PATIENT BASIS BECAUSE OF THE ABOVE NAMED PATIENT'S NEED FOR ASSISTED CARE ON A CONTINUING BASIS FOR THE CONDITION(S) FOR WHICH HE/SHE WAS RECEIVING IN-PATIENT HOSPITAL SERVICES PRIOR TO HIS/HER TRANSFER TO THE [facility]. 09/06/24 1109<Electronically signed by Navid Dominguez MD> [...] explained to the patient and his [facility]. # Fever * Patient developed a [...] The daughter is the healthcare power of claims attorney. #History of dementia: On rivastigmine #Dyslipidemia: [...] liberalized regular diet with consistency/texture as per STRAIGHTENING ROLL OPERATOR. Will continue 120mL ensure plus HP 4 [...] Mora MD; Dr. Kathy Wells MD ~ [facility] Work Phone: 1([phone]) [phone] Discharge summary [facility] Medical Records Department [address] [place] [address] Discharge Summary 09/06/24 1109 MR#: [id number] Acct: [id number] Name: ROBY FLORES Rep #:[id number] : 1935 89 From: Navid Trejo PCP: Dr. Stas Mora MD Status:[facility] [place] Location: [address] Providers Date of Admission: 09/02/24 Date of [...] to the patient and his near [facility]. 09/06: INR 2.4. Hold warfarin today and [...] The daughter is the healthcare power of claims attorney. #History of dementia: On rivastigmine #Dyslipidemia: [...] (Auto) 66.8, Lymph % (Auto) 16.4 L, George % (Auto) 9.1, Eos % (Auto) 6.3 [...] Half-Way Facility Charges/Coding Visit Charges Inpatient E&M: 69787 Disch Hosp >30min 09/06/24 1114 Cosigner Signature (if applicable): CC: Dr. Stas Mora MD; Dr. Navid Dominguez MD~ Signed [facility]06-17-2025 Discharge summary [facility] Medical Records Department [address] [place] [address] [facility] MR#: [id number] Acct: [id number] Name: ROBY FLORES Rep #:[id number] : 1935 89 From: Navid Trejo PCP: Dr. Stas Mora MD Status:AD M IN Certification of patient admission REQUIRED AT TIME OF ADMISSION. I CERTIFY THAT POST-HOSPITAL ECF SERVICES ARE REQUIRED TO BE GIVEN ON AN IN-PATIENT BASIS BECAUSE OF THE ABOVE NAMED PATIENT'S NEED FOR ASSISTED CARE ON A CONTINUING BASIS FOR THE CONDITION(S) FOR WHICH HE/SHE WAS RECEIVING IN-PATIENT HOSPITAL SERVICES PRIOR TO HIS/HER TRANSFER TO THE [facility]. 09/06/24 1109 Diet Diet Order/Speech Therapy: INPATIENT [...] explained to the patient and his [facility]. # Fever * Patient developed a [...] The daughter is the healthcare power of claims attorney. #History of dementia: On rivastigmine #Dyslipidemia: [...] liberalized regular diet with consistency/texture as per STRAIGHTENING ROLL OPERATOR. Will continue 120mL ensure plus HP 4 [...] can be placed): Half-Way Facility 09/06/24 1109 [facility] Signature (if applicable): CC: Dr. Stas Mora MD; Dr. Kathy Wells MD ~ [facility]06-17-2025 [facility] Medical Records Department [address] [place] [address] Discharge Summary 09/06/24 1109 MR#: [id number] Acct: [id number] Name: ROBY FLROES Rep #: [id number] : 1935 89 From: Navid Dominguez MD PCP: Dr. Stas Mora MD Status:ADM IN [facility] Providers Date of Admission: 09/02/24 Date of [...] The daughter is the healthcare power of claims attorney. #History of dementia: On rivastigmine #Dyslipidemia: [...] / Lab / Microbiol (more content not included)...[facility] 09-05-2024 Progress note Author Navid Dominguez [facility] Note Date/Time September 05, 2024 4:15 pm [facility] Medical Records Department [address] [place] [address] Progress Note - Hospitalist 09/05/24 1608 MR#: [id number] Acct: [id number] Name: ROBY FLORES Rep #:[id number] : 1935 89 From: Navid Trejo PCP: Dr. Stas Mora MD Status:AD M IN Location: [address] Reason for Visit Reason for Visit: Diagnoses [...] Clarity Clear, Urine pH 7.0, Ur Specific [place] 1.005, Urine Protein 15 H, Urine Glucose [...] 77.2 H, Lymph % (Auto) 9.8 L, George % (Auto) 7.9, Eos % (Auto) 4.0, [...] explained to the [facility]. # Fever * Patient developed a fever. [...] The daughter is the healthcare power of claims attorney. #History of dementia: On rivastigmine #Dyslipidemia: On statin #Benign essential hypertension: On lisinopril. DVT prophylaxis: * Resume Coumadin today. INR 1.8. Daughter still thinking about that she wants him to continue otherwise. Code status: DNRCCA no intubation * Disposition: Awaiting placement. PT OT on board. Charges/Coding Visit Charges Inpatient E&M: 12017 Subs Hosp L2 09/05/24 7232 <Electronically signed by Navid Dominguez MD> Cosigner Signature (if applicable): CC: ~ Signed [facility] Work Phone: 1(833) 648-409306-16-2025 Progress note [facility] Medical Records Department [address] [place] [address] Progress Note - Hospitalist 09/05/24 1608 MR#: [id number] Acct: [id number] Name: ROBY FLORES Rep #:[id number] : 1935 89 From: Navid Trejo PCP: Dr. Stas Mora MD Status:AD M IN Location: [place] EC127-8 Reason for Visit Reason for Visit: Diagnoses [...] Clarity Clear, Urine pH 7.0, Ur Specific [place] 1.005, Urine Protein 15 H, Urine Glucose [...] 77.2 H, Lymph % (Auto) 9.8 L, George % (Auto) 7.9, Eos % (Auto) 4.0, [...] explained to the patient and his [facility]. # Fever * Patient developed a [...] The daughter is the healthcare power of claims attorney. #History of dementia: On rivastigmine #Dyslipidemia: On statin #Benign essential hypertension: On lisinopril. DVT prophylaxis: * Resume Coumadin today. INR 1.8. Daughter still thinking about that she wants him to continue otherwise. Code status: DNRCCA no intubation * Disposition: Awaiting placement. PT OT on board. Charges/Coding Visit Charges Inpatient E&M: 42299 Subs Hosp L2 09/05/24 1615 Cosigner Signature (if applicable): CC: ~ Signed [facility]06-15-2025 Progress note Author Kathy Wells [facility] Note Date/Time September 04, 2024 3:37 pm [facility] Medical Records Department [address] [place] [address] Progress Note 09/04/24 1412 MR#: [id number] Acct: [id number] Name: ROBY FLORES Rep #:[id number] : 1935 89 From: Kathy Wells MD PCP: Dr. Stas Mora MD Status:AD M IN Location: [place] [address] Subjective Subjective Patient seen and examined. He [...] 78.0 H, Lymph % (Auto) 7.8 L, George % (Auto) 7.7, Eos % (Auto) 5.3 [...] The daughter is the healthcare power of claims attorney. * In light of patient's confusion [...] on board. Charges/Coding Visit Charges Inpatient E&M: 98971 Subs Hosp L2 09/04/24 1537 <Electronically signed by Kathy Wells MD> Kathy Wells MD Cosigner Signature (if applicable): CC: ~ Signed [facility] Work Phone: [phone]) 851-140606-15-2025 Progress note [facility] Medical Records Department [address] [place] [address] Progress Note 09/04/24 1412 MR#: [id number] Acct: [id number] Name: ROBY FLORES Rep #:[id number] : 1935 89 From: Kathy Wells MD PCP: Dr. Stas Mora MD Status:AD M IN Location: [place] [address] Subjective Subjective Patient seen and examined. He [...] 78.0 H, Lymph % (Auto) 7.8 L, George % (Auto) 7.7, Eos % (Auto) 5.3 [...] The daughter is the healthcare power of claims attorney. * In light of patient's confusion [...] on board. Charges/Coding Visit Charges Inpatient E&M: 01735 Subs Hosp L2 09/04/24 1537 Kathy Wells MD Cosigner Signature (if applicable): CC: ~ Signed [facility]06-14-2025 Progress note Author Kathy [facility] Note Date/Time September 03, 2024 6:29 pm [facility] Medical Records Department [address] [place] [address] Progress Note 09/03/24 1135 MR#: [id number] Acct: [id number] Name: ROBY FLORES Rep #:[id number] : 1935 89 From: Kathy Wells MD PCP: Dr. Stas Mroa MD Status:AD M IN Location: [place] [address] Subjective Subjective Patient seen and examined. He [...] 83.4 H, Lymph % (Auto) 6.7 L, George % (Auto) 6.0, Eos % (Auto) 2.8, [...] The daughter is the healthcare power of claims attorney. * In light of patient's confusion [...] on board. Charges/Coding Visit Charges Inpatient E&M: 14661 Subs Hosp L2 09/03/24 1829 <Electronically signed by Kathy Wells MD> Kathy Wells MD Cosigner Signature (if applicable): CC: ~ Signed [facility] Work Phone: 1(751) 428-256306-14-2025 Progress note [facility] Medical Records Department [address] [place] [address] Progress Note 09/03/24 1135 MR#: [id number] Acct: [id number] Name: ROBY FLORES Rep #:[id number] : 1935 89 From: Kathy Wells MD PCP: Dr. Stas Mora MD Status:AD M IN Location: [place] [address] Subjective Subjective Patient seen and examined. He [...] 09/03/24 08:13 09/03/24 08:13 09/03/24 08:13 09/03/24 08:13 09/03/24 08:25 09/03/24 08:25 09/02/24 15:02 Oxygen Flow Rate (L/min) 2 Oxygen [...] 83.4 H, Lymph % (Auto) 6.7 L, George % (Auto) 6.0, Eos % (Auto) 2.8, [...] The daughter is the healthcare power of claims attorney. * In light of patient's confusion [...] on board. Charges/Coding Visit Charges Inpatient E&M: 56267 Subs Hosp L2 09/03/24 7165 Kathy Wells MD Cosigner Signature (if applicable): CC: ~ Signed [facility]06-14-2025 Consult note Author Spike [facility] Note Date/Time September 03, 2024 3:49 pm [facility] Medical Records Department [address] [place] [address] Pharmacokinetic/Renal -Consult 09/03/24 1548 MR#: [id number] Acct: [id number] Name: ROBY FLOERS Rep #:[id number] : 1935 89 From: Spike Maynard [facility] PCP: Dr. Stas Mora MD Status:AD M IN Location: [place] [address] Consult Antibiotic Management Pharmacy has been consulted [...] 09/03/24 1549 <Electronically signed by Spike Angelo [facility]> Date _ Spike De La Cruz [facility] Cosigner Signature (if applicable): Date CC: ~ Signed [facility] Work Phone: 1(395) 762-205706-14-2025 Consult note [facility] Medical Records Department [address] [facility] [place] [address] Pharmacokinetic/Renal -Consult 09/03/24 1548 MR#: [id number] Acct: [id number] Name: ROBY FLORES Rep #:[id number] : 1935 89 From: Spike Maynard [facility] PCP: Dr. Stas Mora MD Status:AD M IN Location: [place] [address] Consult Antibiotic Management Pharmacy has been consulted [...] Vancomycin (09/04/24 at 2130) 09/03/24 1549 dominick [facility]> Date _ Spike De La Cruz [facility] Cosigner Signature (if applicable): Date CC: ~ Signed [facility]06-13-2025 Progress note Author Kathy Wells [facility] Note Date/Time September 02, 2024 6:45 pm [facility] Medical Records Department [address] [place] [address] Progress Note 09/02/24 1404 MR#: [id number] Acct: [id number] Name: ROBY FLORES Rep #:[id number] : 1935 89 From: Kathy Wells MD PCP: Dr. Stas Mora MD Status:AD M IN Location: [place] [address]1 Subjective Subjective Patient seen and examined. He [...] (Auto) 87.9 H, Lymph %(Auto) 3.8 L, George % (Auto) 4.8, Eos % (Auto) 2.2, [...] evidence of intracranial bleed. * [facility]. * PT [...] The daughter is the healthcare power of claims attorney. * In light of patient's confusion [...] intubation * Charges/Coding Visit Charges Inpatient E&M: 91601 Subs Hosp L2 09/02/24 629 <Electronically signed by Kathy Wells MD> Kathy Wells MD Cosigner Signature (if applicable): CC: ~ Signed [facility] Work Phone: 1(474) 111-883906-13-2025 Progress note [facility] Medical Records Department [address] [place] [address] Progress Note 09/02/24 1404 MR#: [id number] Acct: [id number] Name: ROBY FLORES Rep #:[id number] : 1935 89 From: Kathy Wells MD PCP: Dr. Stas Mora MD Status:AD M IN Location: [place] [address] Subjective Subjective Patient seen and examined. He [...] (Auto) 87.9 H, Lymph %(Auto) 3.8 L, George % (Auto) 4.8, Eos % (Auto) 2.2, [...] evidence of intracranial bleed. * [facility] gently with IV fluids. * PT [...] The daughter is the healthcare power of claims attorney. * In light of patient's confusion [...] intubation * Charges/Coding Visit Charges Inpatient E&M: 60599 Subs Hosp L2 09/02/24 8043 Kathy Wells MD Cosigner Signature (if applicable): CC: ~ Signed [facility]06-13-2025 Evaluation note* Diagnosis Onset Date Resolution Status Admit Date Adult failure to thrive acute J une 2024 12:49pm Chronic anticoagulation acute J [facility] 2024 12:49pm Contusion of hip acute August 12:49pm Fall acute Louann 13[address], 202 5 12:49pm History of atrial fibrillation acute September 02, 2024 12:49pm History of dementia acute September 02, 2024 12:49pm History of TIAs acute August 12:49pm Unable to ambulate acute August 212024 12:49pm [facility] Work Phone: 1(198) 292-817706-13-2025 Evaluation note* Diagnosis Onset Date Resolution Status Admit Date Chronic anticoagulation acute J [facility] 2024 12:49pm Contusion of hip acute August 12:49pm Fall acute September 02 12:49pm History of atrial fibrillation acute September 02, 2024 12:49pm History of TIAs acute August 12:49pm Unable to ambulate acute August 212024 12:49pm Adult failure to thrive inactive [facility] 2024 12:49pm History of dementia inactive September 02, 2024 12:49pm [facility] Work Phone: 1([phone] 109-169906-12-2025 Consult note Author Zachary Lubin [facility] Note Date/Time September 01, 2024 9:15 pm [facility] Medical Records Department [address] [place] [address] Pharmacokinetic/Renal -Consult 09/01/242113 MR#: [id number] Acct: [id number] Name: ROBY FLORES Rep #:[id number] : 1935 89 From: Zachary Serrano od PCP: Dr. Stas Mora MD Status:ELIAS PORTER Y Location: [place] [address] Consult Antibiotic Management Pharmacy has been consulted [...] on [date and time ordered]: 09/03 @ 0830 09/01/242114 <Electronically signed by Zachary burton> Date _ Zachary Skinner Signature (if applicable): Date _ CC: ~ Signed [facility] Work Phone: 1(233) 289-625906-12-2025 Progress note Author Marta Black [facility] Note Date/Time September 01, 2024 7:55 pm [facility] Medical Records Department [address] [place] [address] Progress Note - Hospitalist 09/01/241952 MR#: [id number] Acct: [id number] Name: ROBY FLORES Rep #:[id number] : 1935 89 From: Marta Black DO PCP: Dr. Stas Mora MD Status:AD M [place] Location: [place] VQ030-9 Hospitalist Note Called regarding Mr. Flores having [...] Cosigner Signature (if applicable): CC: ~ Signed [facility] Work Phone: 1(412) 869-494106-12-2025 Consult note [facility] Medical Records Department [address] [place] [address] Pharmacokinetic/Renal -Consult 09/01/242113 MR#: [id number] Acct: [id number] Name: ROBY FLORES Rep #:[id number] : 1935 89 From: Zachary Serrano od PCP: Dr. Stas Mora MD Status:AD M [place] Y Location: [place] [address] Consult Antibiotic Management Pharmacy has been consulted [...] on [date and time ordered]: 09/03 @ 0830 09/01/242114 lood> Date _ Zachary Skinner Signature (if applicable): Date _ CC: ~ Signed [facility]06-12-2025 History and physical note Author Kathy [facility] Note Date/Time September 01, 2024 6:04 pm [facility] Medical Records Department [address] [place] [address] H&P Exam - Hospitalist 09/01/24 1018 MR#: [id number] Acct: [id number] Name: ROBY FLORES Rep #:[id number] : 1935 89 From: Kathy Wells MD PCP: Dr. Stas Mora MD Status:AD M [place] [facility] [place] HPI - General General Date of Admission: [...] in the ED were BP of 180/89, OR of 87, RR of 18 and temp [...] debility and weakness due to mechanical fall. [facility] Medical History Chronic anticoagulation TIA (transient [...] 87.5 H, Lymph % (Auto) 4.8 L, George % (Auto) 5.7, Eos % (Auto) 1.2, [...] Clarity Clear, Urine pH 8.0, Ur Specific [place] 1.010, Urine Protein 15 H, Urine Glucose [...] No fracture or dislocation present. Reading Location: [facility] 09/01/24 09:05 IMPRESSION: Cerebral atrophy. Mucosal thickening of the ethmoid sinuses as well as opacification of the left maxillary sinus. [facility] Chest X-Ray 09/01/24 09:25 IMPRESSION: No acute abnormality is seen. Reading Location: [facility]-1 Assessment & Plan Assessment/Plan (1) Adult failure [...] evidence of intracranial bleed. * [facility]drate gently with IV fluids. * PT [...] The daughter is the healthcare power of claims attorney. * In light of patient's confusion [...] be DNR CCA no intubation. * Total lvmc-fz-xgvq time 16 minutes. Charges/Coding Visit Charges Inpatient E&M: 03796 Init Hosp L3 Procedures Hospitalists Procedures: 29993 Advncd Care Plan 30 Min 09/01/24 1804 <Electronically signed by Kathy Wells MD> Cosigner Signature (if applicable): CC: Dr. Stas Mora MD; Dr. Kathy Wells MD~ Signed [facility] Work Phone: 1(316) 144-783906-12-2025 Progress note [facility] Medical Records Department [address] [place] [address] Progress Note - Hospitalist 09/01/241952 MR#: [id number] Acct: [id number] Name: ROBY FLORES E Rep #:[id number] : 1935 89 From: Marta Black DO PCP: Dr. Stas Mora MD Status:AD M [facility] Location: [place] [address] Hospitalist Note Called regarding Mr. Flores having [...] Cosigner Signature (if applicable): CC: ~ Signed [facility]06-12-2025 History and physical note [facility] Medical Records Department [address] [place] [address] H&P Exam - Hospitalist 09/01/24 1018 MR#: [id number] Acct: [id number] Name: ROBY FLORES Rep #:[id number] : 1935 89 From: Kathy Wells MD PCP: Dr. Stas Mora MD Status:[facility] [place] [facility] [place] HPI - General General Date of Admission: [...] in the ED were BP of 180/89, OR of 87, RR of 18 and temp [...] debility and weakness due to mechanical fall. [facility] Medical History Chronic anticoagulation TIA (transient [...] 87.5 H, Lymph % (Auto) 4.8 L, George % (Auto) 5.7, Eos % (Auto) 1.2, [...] Clarity Clear, Urine pH 8.0, Ur Specific [place] 1.010, Urine Protein 15 H, Urine Glucose [...] No fracture or dislocation present. Reading Location: [facility]--[address] 09/01/24 09:05 IMPRESSION: Cerebral atrophy. Mucosal thickening of the ethmoid sinuses as well as opacification of the left maxillary sinus. Reading Location: [facility]--1 Chest X-Ray 09/01/24 09:25 IMPRESSION: No acute abnormality is seen. Reading Location: [facility]-1 Assessment & Plan Assessment/Plan (1) Adult [...] evidence of intracranial bleed. * Admit to [facility]. Hydrate gently with IV fluids. * PT [...] The daughter is the healthcare power of claims attorney. * In light of patient's confusion [...] be DNR CCA no intubation. * Total qcwj-jt-nsdg time 16 minutes. Charges/Coding Visit Charges Inpatient E&M: 84783 Init Hosp L3 Procedures Hospitalists Procedures: 99891 Advncd Care Plan 30 Min 06/12/25 1804 Cosigner Signature (if applicable): CC: Dr. Stas Mora MD; Dr. Kathy Wells MD~ Signed [facility]06-12-2025 Telephone encounter Note* Telephone Encounter - Haydee Oliveros LPN - 09/01/2024 2:49 PM EDT Mychart message sent [facility]06-12-2025 Miscellaneous Notes* Telephone Encounter - Haydee Oliveros LPN - 09/01/2024 2:49 PM EDT Mychart message sent * Telephone Encounter - Luciana Cisneros MD - 09/01/2024 1:26 PM EDT Thanks Russell, Staff please let patient know what the pharmacist as opined on. Regards, Luciana Cisneros MD * [facility]/01/2024 9:46 AM EDT Images from [...] affordable alvarado using Good Rx coupons. At [facility] (his current pharmacy), he can get a 1 mo supply for ~$30. If he switches the prescription to [facility], he can get a 1 mo supply for ~$20. See coupons below. Rivastigmine patches are also available via GoodRx. It appears the cheapest option is through [facility], in which he can get 30 patches for $52. Coupon also below. Sending to PCP to review and provide patient with coupon card information. Russell Aguayo, YongD, BCPS Primary Care Clinical Pharmacist Memantine coupon at [facility] Memantine coupon at [facility] Rivastigmine patches coupon at [facility] documented in this encounter[facility] Telephone encounter Note * Telephone Encounter - Luciana Cisneros MD - 09/01/2024 1:26 PM EDT Thanks Russell, Staff please let patient know what the pharmacist as opined on. Regards, Luciana Cisneros MD [facility]06-12-2025 Discharge summary Author Inderjit Gillespie [facility] Note Date/Time September 01, 2024 10:2 5am [facility] Medical Records Department [address] [place] [address] Emergency Department Summary 09/01/24 MR#: [id number] Acct: [id number] Name: ROBY FLORES Rep #:[id number] : [...] shoulders elbows and wrist. He has normal powder blender and pourer strength. Neurologically he is awake alert. Answering [...] 87.5 H Lymph % (Auto) 4.8 L George % (Auto) 5.7 Eos % (Auto) 1.2 [...] Clarity Clear Urine pH 8.0 Ur Specific [place] 1.010 Urine Protein 15 H Urine Glucose [...] No fracture or dislocation present. Reading Location: [facility]-[address] 09/01/24 09:05 IMPRESSION: Cerebral atrophy. Mucosal thickening of the ethmoid sinuses as well as opacification of the left maxillary sinus. Reading Location: [facility]-IR-1 Chest X-Ray 09/01/24 09:25 IMPRESSION: No acute abnormality is seen. Reading Location: [facility]1 Chest x-ray, 2 views, AP and [...] dementia, Adult failure to thrive Disposition Disposition: [facility] What to do if you have Problems For any increased pain, shortness of breath, bleeding, nausea or vomiting, chestpain, or any unexpected problems, contact your Primary Care Provider. Call [facility] ([phone]) or report to the closest Emergency Room. Call 911 if necessary. 09/01/24 1025 <Electronically signed by Inderjit Gillespie MD> Cosigner Signature (if applicable): CC: Dr. Stas Mora MD ~ Signed [facility] Work Phone: 1(516) 569-258006-12-2025 Discharge summary [facility] Medical Records Department [address] [place] [address] Emergency Department Summary 09/01/24 MR#: [id number] Acct: [id number] Name: ROBY FLORES Rep #:[id number] : [...] shoulders elbows and wrist. He has normal powder blender and pourer strength. Neurologically he is awake alert. Answering [...] 87.5 H Lymph % (Auto) 4.8 L George % (Auto) 5.7 Eos % (Auto) 1.2 [...] Clarity Clear Urine pH 8.0 Ur Specific [place] 1.010 Urine Protein 15 H Urine Glucose [...] No fracture or dislocation present. Reading Location: [facility] 09/01/24 09:05 IMPRESSION: Cerebral atrophy. Mucosal thickening of the ethmoid sinuses as well as opacification of the left maxillary sinus. Reading Location: [facility] Chest X-Ray 09/01/24 09:25 IMPRESSION: No acute abnormality is seen. Reading Location: [facility] Chest x-ray, 2 views, AP and [...] to thrive Disposition Disposition: [facility] What to do if you have Problems For any increased pain, shortness of breath, bleeding, nausea or vomiting, chestpain, or any unexpected problems, contact your Primary Care Provider. Call [facility] ([phone]) or report tothe closest Emergency Room. Call 911 if necessary. 09/01/24 1025 Cosigner Signature (if applicable): CC: Dr. Stas Mora MD ~ Signed [facility]06-12-2025 Telephone encounter Note* Telephone Encounter - Russell Aguayo, [facility] - 09/01/2024 9:46 AM EDT Images from [...] affordable alvarado using Good Rx coupons. At [facility] (his current pharmacy), he can get a 1 mo supply for ~$30. If he switches the prescription to [facility], he can get a 1 mo supply for ~$20. See coupons below. Rivastigmine patches are also available via GoodRx. It appears the cheapest option is through [facility], in which he can get 30 patches for $52. Coupon also below. Sending to PCP to review and provide patient with coupon card information. Russell Aguayo, PharmD, BCPS Primary Care Clinical Pharmacist Memantine coupon at [facility] Memantine coupon at [facility] Rivastigmine patches coupon at [facility] Work Phone: [phone]) 166-318406-12-2025 Radiology Diagnostic study note [facility] Imaging Services [address] [place] [address] [id number] Brain/Head without Contrast MR#: [id number] Acct: [id number] Name: ROBY FLORES Rep #: [id number] : 1935 M 89 From: Laith Chavez MD PCP: Dr. Stas Mora MD Status: RE G ER Study:Brain/Head without Contrast Date of Exa m: 09/01/24 Exam# [id number] Ordering Dr: Earlene Gillespie MD PROCEDURE: BRAIN/HEAD [...] of the left maxillary sinus. Reading Location: [facility]1 CC: Dr. Inderjit Gillespie MD; Dr. Stas Mora MD ~ Measurement Supervisor: Signed [facility]06-12-2025 Radiology Diagnostic study note [facility] Imaging Services [address] [place], [place] [address] Chest 1 View (Portable) MR#: [id number] Acct: [id number] Name: ROBY FLORES Rep #: [id number] : 1935 M 89 From: Laith Chavez MD PCP: Dr. Stas Mora MD Status: RE G ER Study:Chest 1 View (Portable) Date of Exam: 09/01/24 Exam# [id number] Ordering Dr: Earlene Gillespie MD PROCEDURE: CHEST [...] No acute abnormality is seen. Reading Location: [place] [address] CC: Dr. Inderjit Gillespie MD; Dr. Stas Moar MD ~ Measurement Supervisor: Signed [facility]06-12-2025 Radiology Diagnostic study note [facility] Imaging Services [address] [place], [place] [id number] Hips B/L min 2 views w/ Pelvis MR#: [id number] Acct: [id number] Name: ROBY FLORES Rep #: [id number] : 1935 M 89 From: Laith Chavez MD PCP: Dr. Stas Mora MD Status: RE G ER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 Allergies Indication for Warfarin: snf current use of anticoagulant Paroxysmal atrial fibrillation [...] voice message On both home and mobile ([employer]). Advised patient to decrease total weekly regimen [...] Pharmacy Anticoagulation Clinic Pharmacy Anticoagulation Clinic Pager: [phone]. documented in this encounterAvita Health System [facility]01-08-2025 Telephone encounter Note * Telephone Encounter - Coretta Jalloh RPh - 03/30/2024 9:45 AM EST [facility] Clinic Anticoagulation Episode Summary Anticoagulation Care Providers Provider Role Specialty Phone number Stas Mora MD Referring Family Medicine [phone] Roby Flores is a 88 year old [...] ALLERGIES No Known Allergies Indication for Warfarin: snf current use of anticoagulant Paroxysmal atrial fibrillation [...] Pharmacy Anticoagulation Clinic Pharmacy Anticoagulation Clinic Pager: [phone]. [facility] Miscellaneous Notes* Telephone Encounter - Coretta Jalloh RPh - 03/30/2024 9:45 AM EST [facility]ticoagulation Clinic Anticoagulation Episode Summary Anticoagulation Care Providers Provider Role Specialty Phone number Stas Mora MD Referring Family Medicine [phone] Roby Flores is a 88 year old [...] ALLERGIES No Known Allergies Indication for Warfarin: 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 Paroxysmal atrial fibrillation [...] Pharmacy Anticoagulation Clinic Pharmacy Anticoagulation Clinic Pager: [phone]. documented in this encounterAvita Health [facility]12-26-2024 Telephone encounter Note * Telephone Encounter - Josy Gandhi RPh - 03/17/2024 9:34 AM EST [facility] Anticoagulation Clinic Anticoagulation Episode Summary Anticoagulation Care Providers Provider Role Specialty Phone number Stas Mora MD Referring Family Medicine [phone] Roby Flores is a 88 year old [...] ALLERGIES No Known Allergies Indication for Warfarin: snf current use of 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 Josy Gandhi [facility] Clinical Pharmacist, Pharmacy Anticoagulation Clinic Pharmacy Anticoagulation Clinic Pager: [phone]. [facility]12-26-[facility] Miscellaneous Notes* Telephone Encounter - Josy Gandhi RPh - 03/17/2024 9:34 AM EST [facility] Ambulatory [facility] Anticoagulation Clinic Anticoagulation Episode Summary Anticoagulation Care Providers Provider Role Specialty Phone number Stas Mora MD Referring Family Medicine [phone] Roby Flores is a 88 year old [...] ALLERGIES No Known Allergies Indication for Warfarin: 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 Paroxysmal atrial fibrillation [...] Pharmacy Anticoagulation Clinic Pharmacy Anticoagulation Clinic Pager: [phone]. documented in this encounterAvita Health [facility]12-12-2024 Telephone encounter Note * Telephone Encounter - Elise Paredes RP - 03/03/2024 9:32 AM EST [facility] Clinic Anticoagulation Episode Summary Anticoagulation Care Providers Provider Role Specialty Phone number Stas Mora MD Referring Family Medicine [phone] Roby Flores is a 88 year old [...] ALLERGIES No Known Allergies Indication for Warfarin: snf current use of anticoagulant Paroxysmal atrial fibrillation [...] Pharmacy Anticoagulation Clinic Pharmacy Anticoagulation Clinic Pager: [phone]. [facility]12-[facility] Miscellaneous Notes* Telephone Encounter - Elise Paredes RPh - 03/03/2024 9:32 AM EST [facility] Anticoagulation Clinic Anticoagulation Episode Summary Anticoagulation Care Providers Provider Role Specialty Phone number Stas Mora MD Referring Family Medicine [phone] Roby Flores is a 88 year old [...] ALLERGIES No Known Allergies Indication for Warfarin: snf current use of 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 Elise Paredes [facility] Clinical Pharmacist, Pharmacy Anticoagulation Clinic Pharmacy Anticoagulation Clinic Pager: [phone]. documented in this encounterAvita Health [facility]11-20-2024 Telephone encounter Note * Telephone Encounter - Coretta Jalloh RPh - 02/10/2024 9:08 AM EST [facility] Antico[facility] Clinic Anticoagulation Episode Summary Anticoagulation Care Providers Provider Role Specialty Phone number Stas Mora MD Referring Family Medicine [phone] Roby Flores is a 88 year old [...] ALLERGIES No Known Allergies Indication for Warfarin: 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 Paroxysmal atrial fibrillation [...] Pharmacy Anticoagulation Clinic Pharmacy Anticoagulation Clinic Pager: [phone]. [facility] Miscellaneous Notes* Telephone Encounter - Coretta Jalloh RPh - 02/10/2024 9:08 AM EST [facility] Anticoagulation Clinic Anticoagulation Episode Summary Anticoagulation Care Providers Provider Role Specialty Phone number Stas Mora MD Referring Family Medicine [phone] Roby Flores is a 88 year old [...] ALLERGIES No Known Allergies Indication for Warfarin: snf current use of anticoagulant Paroxysmal atrial fibrillation [...] Pharmacy Anticoagulation Clinic Pharmacy Anticoagulation Clinic Pager: [phone]. documented in this encounterAvita [facility]10-30-2024 Telephone encounter Note * Telephone Encounter - Coretta Jalloh RPh - 01/20/2024 10:19 AM EDT [facility] An[facility] Clinic Anticoagulation Episode Summary Anticoagulation Care Providers Provider Role Specialty Phone number Stas Mora MD Referring Family Medicine [phone] Roby Flores is a 88 year old [...] ALLERGIES No Known Allergies Indication for Warfarin: snf current use of 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 Coretta Jalloh [facility] Clinical Pharmacist, Pharmacy Anticoagulation Clinic Pharmacy Anticoagulation Clinic Pager: [phone]. [facility]10-30[facility] Miscellaneous Notes* Telephone Encounter - Coretta Jalloh RPh - 01/20/2024 10:19 AM EDT [facility] Ambulatory [facility] Anticoagulation Clinic Anticoagulation Episode Summary Anticoagulation Care Providers Provider Role Specialty Phone number Stas Mora MD Referring Family Medicine [phone] Roby Flores is a 88 year old [...] ALLERGIES No Known Allergies Indication for Warfarin: snf current use of anticoagulant Paroxysmal atrial fibrillation [...] Pharmacy Anticoagulation Clinic Pharmacy Anticoagulation Clinic Pager: [phone]. documented in this encounterAvita Health [facility]10-14-2024 Telephone encounter Note * Telephone Encounter - Jenna Fitzpatrick APRN.CNP - 01/04/2024 10:41 AM EDT The following approved medication requests have been transmitted electronically. Requested Prescriptions Signed Prescriptions Disp Refills warfarin (COUMADIN) 3 mg tablet 30 tablet 11 Sig: Take 1 tablet by mouth daily as directed. Authorizing Provider: JENNA FITZPATRICK APRN.CNP [facility]10-14-[facility]24 Miscellaneous Notes* Telephone Encounter - Jenna [...] 3 mg rx to be sent to [facility]. Heis taking 3 mg daily and has 1 mg tablets and 2.5 mg tablets. He keeps running out of the 1 mg every 10 days and pharmacy asking for another rx. Pending rx needs completed. Please advise documented in this encounterAvita Health System [facility]10-14-2024 Telephone encounter Note * Telephone Encounter - Oliva Westbrook LPN - 01/04/2024 9:33 AM EDT Patient significant other Maria Guadalupe calling asking for a warfarin 3 mg rx to be sent to [facility]. Heis taking 3 mg daily and has 1 mg tablets and 2.5 mg tablets. He keeps running out of the 1 mg every 10 days and pharmacy asking for another rx. Pending rx needs completed. Please advise [facility] Telephone encounter Note* Telephone Encounter - Elise Paredes, [facility] - 12/24/2023 2:29 PM EDT [facility] Amb[facility] Anticoagulation Clinic Anticoagulation Episode Summary Anticoagulation Care Providers Provider Role Specialty Phone number Stsa Mora MD Referring Family Medicine [phone] Roby Flores is a 88 year old [...] ALLERGIES No Known Allergies Indication for Warfarin: snf current use of anticoagulant Paroxysmal atrial fibrillation (hcc) Anticoagulation Episode Summary Current INR goal: 2.0-3.0 Assessment: INR result of 2.2 is therapeutic Plan: Current Warfarin Dosing As of 12/24/2023 Full warfarin instructions: 2.5 mg every Sun; 3 mg all other days Left voice message Advised patient to continue current weekly dose as noted above Next lab INR check scheduled on 01/21/2024 Elise Paredes riya Clinical Pharmacist, Pharmacy Anticoagulation Clinic Pharmacy Anticoagulation Clinic Pager: [phone]. [facility]10-03-[facility] Miscellaneous Notes* Telephone Encounter - Elise Paredes RPh - 12/24/2023 2:29 PM EDT [facility] Ambulatory [facility]acy Anticoagulation Clinic Anticoagulation Episode Summary Anticoagulation Care Providers Provider Role Specialty Phone number Stas Mora MD Referring Family Medicine [phone] Roby Flores is a 88 year old [...] ALLERGIES No Known Allergies Indication for Warfarin: snf current use of anticoagulant Paroxysmal atrial fibrillation [...] Pharmacy Anticoagulation Clinic Pharmacy Anticoagulation Clinic Pager: [phone]. documented in this encounterAvita Health [facility]09-19-2024 Telephone encounter Note * Telephone Encounter - Elise Paredes RPh - 12/10/2023 2:13 PM EDT [facility] Ambulatory [facility] Anticoagulation Clinic Anticoagulation Episode Summary Anticoagulation Care Providers Provider Role Specialty Phone number Stas Mora MD Referring Family Medicine [phone] Roby Flores is a 88 year old [...] ALLERGIES No Known Allergies Indication for Warfarin: snf current use of anticoagulant Paroxysmal atrial fibrillation (hcc) Anticoagulation Episode Summary Current INR goal: 2.0-3.0 Assessment: INR result of 1.9 is SUBtherapeutic due to: unknown cause - did not speak to patient Plan: Current Warfarin Dosing As of 12/10/2023 Full warfarin instructions: 2.5 mg every Sun; 3 mg all other days Left voice message for Gabby at [phone] (home) Advised patient to increase total weekly regimen Next lab INR check scheduled on 12/24/2023 Elise Paredes RPh Clinical Pharmacist, Pharmacy Anticoagulation Clinic Pharmacy Anticoagulation Clinic Pager: [phone]. [facility]09-[facility] Miscellaneous Notes* Telephone Encounter - Elise Paredes RPh - 12/10/2023 2:13 PM EDT [facility] Ambulatory Pharmacy Anticoagulation Clinic Anticoagulation Episode Summary Anticoagulation Care Providers Provider Role Specialty Phone number Stas Mora MD Referring Family Medicine [phone] Roby Flores is a 88 year old [...] ALLERGIES No Known Allergies Indication for Warfarin: snf current use of anticoagulant Paroxysmal atrial fibrillation (hcc) Anticoagulation Episode Summary Current INR goal: 2.0-3.0 Assessment: INR result of 1.9 is SUBtherapeutic due to: unknown cause - did not speak to patient Plan: Current Warfarin Dosing As of 12/10/2023 Full warfarin instructions: 2.5 mg every Sun; 3 mg all other days Left voice message for Gabby at [phone] (home) Advised patient to increase total weekly regimen Next lab INR check scheduled on 12/24/2023 Elise Paredes RPh Clinical Pharmacist, Pharmacy Anticoagulation Clinic Pharmacy Anticoagulation Clinic Pager: [phone]. documented in this encounterAvita [facility]09-05-2024 Telephone encounter Note * Telephone Encounter - Elise Paredes, [facility] - 11/26/2023 4:32 PM EDT [facility] Ambulatory [facility] Anticoagulation Clinic Anticoagulation Episode Summary Anticoagulation Care Providers Provider Role Specialty Phone number Stas Mora MD Referring Family Medicine [phone] Roby Flores is a 88 year old [...] ALLERGIES No Known Allergies Indication for Warfarin: 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 Paroxysmal atrial fibrillation [...] Pharmacy Anticoagulation Clinic Pharmacy Anticoagulation Clinic Pager: [phone]. [facility]09-[facility] Miscellaneous Notes* Telephone Encounter - Elise Paredes RPh - 11/26/2023 4:32 PM EDT [facility] Ambulatory Pharmacy Anticoagulation Clinic Anticoagulation Episode Summary Anticoagulation Care Providers Provider Role Specialty Phone number Stas Mora MD Referring Family Medicine [phone] Roby Flores is a 88 year old [...] ALLERGIES No Known Allergies Indication for Warfarin: snf current use of anticoagulant Paroxysmal atrial fibrillation [...] Patient denies need for refills. Elise Paredes [facility] Clinical Pharmacist, Pharmacy Anticoagulation Clinic Pharmacy Anticoagulation Clinic Pager: [phone]. * Telephone Encounter - Satish [employer]Parmjit - 11/26/2023 4:26 PM EDT Patient's spouse called regarding message. Patient typically takes warfarin in the morning but did not take any today. Patient's spouse doesn't understand why its low all the sudden. Denies changes in medication/ diet or missed doses. Call transferred to [facility] Parmjit Covarrubias, Manufacturing Advisor (seed sorter) Pharmacy Anticoagulation Clinic * Telephone Encounter - Elise Paredes [facility] - 11/26/2023 4:21 PM EDT [facility] Ambulatory Pharmacy Anticoagulation Clinic Anticoagulation Episode Summary Anticoagulation Care Providers Provider Role Specialty Phone number Stas Mora MD Referring Family Medicine [phone] Roby Flores is a 88 year old [...] ALLERGIES No Known Allergies Indication for Warfarin: 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 Paroxysmal atrial fibrillation [...] Pharmacy Anticoagulation Clinic Pharmacy Anticoagulation Clinic Pager: [phone]. documented in this encounterAvita Health [facility]09-05-2024 Telephone encounter Note * Telephone Encounter - Satish (Media ManagerParmjit Berry - 11/26/2023 4:26 PM EDT Patient's spouse called regarding message. Patient typically takes warfarin in the morning but did not take any today. Patient's spouse doesn't understand why its low all the sudden. Denies changes in medication/ diet or missed doses. Call transferred to [facility] Parmjit Covarrubias, Manufacturing Advisor (seed sorter) Pharmacy Anticoagulation Clinic [facility]09-05-[facility] Telephone encounter Note* Telephone Encounter - Elise Paredes, [facility] - 11/26/2023 4:21 PM EDT [facility] Ambulatory Pharmacy Anticoagulation Clinic Anticoagulation Episode Summary Anticoagulation Care Providers Provider Role Specialty Phone number Stas Mora MD Referring Family Medicine [phone] Roby Flores is a 88 year old [...] ALLERGIES No Known Allergies Indication for Warfarin: snf current use of anticoagulant Paroxysmal atrial fibrillation [...] call PAC to discuss further Elise Paredes [facility] Clinical Pharmacist, Pharmacy Anticoagulation Clinic Pharmacy Anticoagulation Clinic Pager: [phone]. [facility]09-05-[facility] History of Present illness Narrative* Stas [...] Coronary atherosclerosis of unspecified type of vessel, [place] or graft Comment: Coronary artery disease No [...] Past Histories independently gathered by the clinical product support representative and the remaining scribed note accurately describes [...] AM. Rosie Cruz MA documented in this encounterAvita Health System [facility]09-05-2024 NoteHNO ID: [id number] Author: STAS MORA MD Service: ? Author [...] Coronary atherosclerosis of unspecified type of vessel, [place] or graft Comment: Coronary artery disease No [...] Directive Discussion Compl (more content not included)...[facility]08-28-2024 Telephone encounter Note* Telephone Encounter - Coretta Jalloh RPh - 11/18/2023 4:30 PM EDT [facility] Ambulatory Pharmacy Anticoagulation Clinic Anticoagulation Episode Summary Anticoagulation Care Providers Provider Role Specialty Phone number Stas Mora MD Referring Family Medicine [phone] Roby Flores is a 88 year old [...] ALLERGIES No Known Allergies Indication for Warfarin: 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 Paroxysmal atrial fibrillation [...] Pharmacy Anticoagulation Clinic Pharmacy Anticoagulation Clinic Pager: [phone]. [facility] Miscellaneous Notes* Telephone Encounter - Coretta Jalloh RPh - 11/18/2023 4:30 PM EDT [facility] Ambulatory Pharmacy Anticoagulation Clinic Anticoagulation Episode Summary Anticoagulation Care Providers Provider Role Specialty Phone number Stas Mora MD Referring Family Medicine [phone] Roby Flores is a 88 year old [...] ALLERGIES No Known Allergies Indication for Warfarin: 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 Paroxysmal atrial fibrillation [...] Patient denies need for refills. Coretta Jalloh [facility] Clinical Pharmacist, Pharmacy Anticoagulation Clinic Pharmacy [facility] Pager: [phone]. documented in this encounterAvita [facility]08-26-[facility]24 Telephone encounter Note * Telephone Encounter - Elvis Kearney APRN.CNP - 11/16/2023 9:39 AM EDT The following approved medication requests have been transmitted electronically. Requested Prescriptions Pending Prescriptions Disp Refills warfarin (COUMADIN) 1 mg tablet 30 tablet 5 Sig: Take 1 tablet by mouth once daily. Elvis Kearney APRN.CNP [facility]08-26-[facility]24 Miscellaneous Notes* Telephone Encounter - Elvis [...] 16, 2023 9:00 AM documented in this encounterAvita Health [facility]08-26-2024 Telephone encounter Note * Telephone Encounter [...] Shahid MA November 16, 2023 9:06 AM [facility]08-26-2024 Telephone encounter Note* Telephone Encounter - [...] Keke Rinaldi November 16, 2023 9:00 AM [facility]07-24-2024 Telephone encounter Note* Telephone Encounter - Coretta Jalloh RP - 10/14/2023 4:21 PM EDT [facility] Anticoagulation Episode Summary Anticoagulation Care Providers Provider Role Specialty Phone number Stas Mora MD Referring Family Medicine [phone] Roby Flores is a 88 year old [...] ALLERGIES No Known Allergies Indication for Warfarin: 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 Paroxysmal atrial fibrillation [...] Pharmacy Anticoagulation Clinic Pharmacy [facility] Pager: [phone]. [facility] Miscellaneous Notes* Telephone Encounter - Coretta Jalloh RPh - 10/14/2023 4:21 PM EDT [facility] Anticoagulation Episode Summary Anticoagulation Care Providers Provider Role Specialty Phone number Stas Mora MD Referring Family Medicine [phone] Roby Flores is a 88 year old [...] ALLERGIES No Known Allergies Indication for Warfarin: snf current use of anticoagulant Paroxysmal atrial fibrillation [...] Pharmacy Anticoagulation Clinic Pharmacy Anticoagulation Clinic Pager: [phone]. documented in this encounterAvita [facility]06-26-2024 Telephone encounter Note * Telephone Encounter - Colleen Sommer RPh - 09/16/2023 11:15 AM EDT [facility] Anticoagulation Episode Summary Anticoagulation Care Providers Provider Role Specialty Phone number Stas Mora MD Referring Family Medicine [phone] Roby Flores is a 88 year old [...] Pharmacy Anticoagulation Clinic Pharmacy An[facility] Pager: [phone]. [facility] Miscellaneous Notes* Telephone Encounter - Colleen Sommer RPh - 09/16/2023 11:15 AM EDT [facility] Anticoagulation Episode Summary Anticoagulation Care Providers Provider Role Specialty Phone number Stas Mora MD Referring Family Medicine [phone] Roby Flores is a 88 year old [...] Pharmacy Anticoagulation Clinic Pharmacy Anticoagulation Clinic Pager: [phone]. documented in this encounterAvita Health System [facility]06-25-2024 Instructions* Patient Instructions* Rosie Cruz MA - 09/15/2023 8:48 AM EDT Starting Lasix (Furosemide) 20 mg once daily as needed. You can use the medication on days where swelling is increased. Elevate legs through out the day to help with swelling. Decrease sodium in diet. documented in this encounterAvita Health [facility]06-25-2024 History of Present illness Narrative* Stas [...] Coronary atherosclerosis of unspecified type of vessel, [place] or graft Coronary artery disease Other and [...] Past Histories independently gathered by the clinical product support representative and the remaining scribed note accurately describes [...] AM. Rosie Cruz MA documented in this encounterAvita [facility]06-24-2024 Telephone encounter Note * Telephone Encounter [...] difficulty breathing Protocols used: Leg Swelling and [id number] [facility]06-24-2024 Miscellaneous Notes* Telephone Encounter - Marian [...] difficulty breathing Protocols used: Leg Swelling and [id number] * Telephone Encounter - Elana Valdes RN - 09/14/2023 2:52 PM EDT Called and left a voicemail for the Patient and on the Pts girlfriends phone to have the Pt call back and ask for a nurse to receive the providers message. We need more information about his bilateral leg swelling that he was scheduled for tomorrow. Elana Valdes RN documented in this encounterAvita Health System [facility]06-24-2024 Telephone encounter Note * Telephone Encounter [...] was scheduled for tomorrow. Elana Valdes RN [facility] Telephone encounter Note* Telephone Encounter - Coretta Jalloh RP - 09/02/2023 3:08 PM EDT [facility] Anticoagulation Episode Summary Anticoagulation Care Providers Provider Role Specialty Phone number Stas Mora MD Referring Family Medicine [phone] Roby Flores is a 88 year old [...] ALLERGIES No Known Allergies Indication for Warfarin: snf current use of anticoagulant Paroxysmal atrial fibrillation [...] Pharmacy Anticoagulation Clinic Pharmacy Anticoagulation [facility] Pager: [phone]. [facility] Miscellaneous Notes* Telephone Encounter - Coretta Jalloh RPh - 09/02/2023 3:08 PM EDT [facility] Anticoagulation Episode Summary Anticoagulation Care Providers Provider Role Specialty Phone number Stas Mora MD Referring Family Medicine [phone] Roby Flores is a 88 year old [...] ALLERGIES No Known Allergies Indication for Warfarin: snf current use of anticoagulant Paroxysmal atrial fibrillation [...] the plan. Patient denies need for refills. Corettaubaldo Jalloh RPh Clinical Pharmacist, Pharmacy Anticoagulation Clinic Pharmacy Anticoagulation Clinic Pager: [phone]. documented in this encounterAvita Health [facility]06-05-2024 Telephone encounter Note * Telephone Encounter - Coretta Jalloh RPh - 08/26/2023 5:03 PM EDT [facility] Anticoagulation Episode Summary Anticoagulation Care Providers Provider Role Specialty Phone number Stas Mora MD Referring Family Medicine [phone] Roby Flores is a 88 year old [...] ALLERGIES No Known Allergies Indication for Warfarin: snf current use of anticoagulant Paroxysmal atrial fibrillation [...] Pharmacy Anticoagulation Clinic Pharmacy Antico[facility] Pager: [phone]. [facility] Miscellaneous Notes* Telephone Encounter - Coretta Jalloh RPh - 08/26/2023 5:03 PM EDT [facility] Anticoagulation Episode Summary Anticoagulation Care Providers Provider Role Specialty Phone number Stas Mora MD Referring Family Medicine [phone] Roby Flores is a 88 year old [...] ALLERGIES No Known Allergies Indication for Warfarin: snf current use of anticoagulant Paroxysmal atrial fibrillation [...] Pharmacy Anticoagulation Clinic Pharmacy Anticoagulation Clinic Pager: [phone]. documented in this encounterAvita [facility]05-29-2024 Telephone encounter Note * Telephone Encounter - Coretta Jalloh RPh - 08/19/2023 5:09 PM EDT [facility] Anticoagulation Episode Summary Anticoagulation Care Providers Provider Role Specialty Phone number Stas Mora MD Referring Family Medicine [phone] Roby Flores is a 88 year old [...] Pharmacy Anticoagulation Clinic Pharmacy Antico[facility] Pager: [phone]. [facility] Miscellaneous Notes* Telephone Encounter - Coretta Jalloh RPh - 08/19/2023 5:09 PM EDT [facility] Clinic Anticoagulation Episode Summary Anticoagulation Care Providers Provider Role Specialty Phone number Stas Mora MD Referring Family Medicine [phone] Roby Flores is a 88 year old [...] Pharmacy Anticoagulation Clinic Pharmacy Anticoagulation Clinic Pager: [phone]. documented in this encounterAvita Health System [facility]05-24-2024 History of Present illness Narrative* Stas [...] thinks he is being sued by a restorationist and thathe was given a letter about it, doesn't know who the allergist/pediatric pulmonologist is or where the restorationist is. states this is not true. He was looking for his brother who lives out of state, thought he was still staying with them, however he has not been up to [place] since Jan. No hallucinations. Is not leaving [...] Coronary atherosclerosis of unspecified type of vessel, [place] or graft Coronary artery disease Other and [...] Past Histories independently gathered by the clinical product support representative and the remaining scribed note accurately describes [...] AM. Marta Palacio MA documented in this encounterAvita [facility]05-22-2024 Telephone encounter Note * Telephone Encounter - Coretta Jalloh RPh - 08/12/2023 4:27 PM EDT [facility] Clinic Anticoagulation Episode Summary Anticoagulation Care Providers Provider Role Specialty Phone number Stas Mora MD Referring Family Medicine [phone] Roby Flores is a 87 year old [...] ALLERGIES No Known Allergies Indication for Warfarin: snf current use of anticoagulant Paroxysmal atrial fibrillation [...] Pharmacy Anticoagulation Clinic Pharmacy Anticoagulation Clinic Pager: [phone]. [facility] Miscellaneous Notes* Telephone Encounter - Coretta Jalloh, [facility] - 08/12/2023 4:27 PM EDT [facility] Anticoagulation Episode Summary Anticoagulation Care Providers Provider Role Specialty Phone number Stas Mora MD Referring Family Medicine [phone] Roby Flores is a 87 year old [...] ALLERGIES No Known Allergies Indication for Warfarin: snf current use of anticoagulant Paroxysmal atrial fibrillation [...] Pharmacy Anticoagulation Clinic Pharmacy Anticoagulation Clinic Pager: [phone]. documented in this encounterAvita Health [facility]05-15-2024 Telephone encounter Note * Telephone Encounter - Coretta Jalloh RPh - 08/05/2023 4:41 PM EDT [facility] Anticoagulation Episode Summary Anticoagulation Care Providers Provider Role Specialty Phone number Stas Mora MD Referring Family Medicine [phone] Roby Flores is a 87 year old [...] ALLERGIES No Known Allergies Indication for Warfarin: 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 Paroxysmal atrial fibrillation [...] Pharmacy Anticoagulation Clinic Pharmacy Anticoagulation Clinic Pager: [phone]. [facility]05-[facility] Miscellaneous Notes* Telephone Encounter - Coretta Jalloh RPh - 08/05/2023 4:41 PM EDT [facility] An[facility] Clinic Anticoagulation Episode Summary Anticoagulation Care Providers Provider Role Specialty Phone number Stas Mora MD Referring Family Medicine [phone] Roby Flores is a 87 year old [...] ALLERGIES No Known Allergies Indication for Warfarin: 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 Paroxysmal atrial fibrillation (hcc) Anticoagulation Episode Summary Current INR goal: 2.0-3.0 Assessment: INR result of 1.5 is SUBtherapeutic due to: unknown cause - did not speak to patient Plan: Current Warfarin Dosing As of 08/05/2023 Full warfarin instructions: 2 mg every e, [place], Sat; 2.5 mg all other days Left voice message On home and cell (for Maria Guadalupe) Advised patient to increase total weekly regimen Next lab INR check scheduled on 08/12/2023 Coretta Jalloh RPh Clinical Pharmacist, Pharmacy Anticoagulation Clinic Pharmacy Anticoagulation Clinic Pager: [phone]. documented in this encounterAvita [facility]05-08-2024 Telephone encounter Note * Telephone Encounter - Elena Lopez RPh - 07/29/2023 3:21 PM EDT [facility] Anticoagulation Clinic Anticoagulation Episode Summary Anticoagulation Care Providers Provider Role Specialty Phone number Stas Mora MD Referring Family Medicine [phone] Roby Flores is a 87 year old [...] ALLERGIES No Known Allergies Indication for Warfarin: 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 Paroxysmal atrial fibrillation [...] Pharmacy Anticoagulation Clinic Pharmacy Anticoagulation Clinic Pager: [phone]. [facility]05-[facility] Miscellaneous Notes* Telephone Encounter - Elena Lopez RPh - 07/29/2023 3:21 PM EDT [facility] Anticoagulation Clinic Anticoagulation Episode Summary Anticoagulation Care Providers Provider Role Specialty Phone number Stas Mora MD Referring Family Medicine [phone] Roby Flores is a 87 year old [...] ALLERGIES No Known Allergies Indication for Warfarin: snf current use of anticoagulant Paroxysmal atrial fibrillation [...] Patient denies need for refills. Elena Lopez [facility] Clinical Pharmacist, Pharmacy Anticoagulation Clinic Pharmacy Anticoagulation Clinic Pager: [phone]. documented in this encounterAvita Health [facility]05-01-2024 Telephone encounter Note * Telephone Encounter - Coretta Jalloh [facility] - 07/22/2023 4:40 PM EDT [facility] Clinic Anticoagulation Episode Summary Anticoagulation Care Providers Provider Role Specialty Phone number Stas Mora MD Referring Family Medicine [phone] Roby Flores is a 87 year old [...] ALLERGIES No Known Allergies Indication for Warfarin: 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 Paroxysmal atrial fibrillation [...] Pharmacy Anticoagulation Clinic Pharmacy Anticoagulation Clinic Pager: [phone]. [facility]05-[facility] Miscellaneous Notes* Telephone Encounter - Coretta Jalloh RPh - 07/22/2023 4:40 PM EDT [facility] Ambulatory [facility]acy Anticoagulation Clinic Anticoagulation Episode Summary Anticoagulation Care Providers Provider Role Specialty Phone number Stas Mora MD Referring Family Medicine [phone] Roby Flores is a 87 year old [...] ALLERGIES No Known Allergies Indication for Warfarin: snf current use of anticoagulant Paroxysmal atrial fibrillation [...] Pharmacy Anticoagulation Clinic Pharmacy Anticoagulation Clinic Pager: [phone]. documented in this encounterAvita Health [facility]04-24-2024 Telephone encounter Note * Telephone Encounter - Coretta Jalloh RPh - 07/15/2023 3:18 PM EDT [facility] Anticoagulation Clinic Anticoagulation Episode Summary Anticoagulation Care Providers Provider Role Specialty Phone number Stas Mora MD Referring Family Medicine [phone] Roby Flores is a 87 year old [...] ALLERGIES No Known Allergies Indication for Warfarin: snf current use of anticoagulant Paroxysmal atrial fibrillation [...] Pharmacy Anticoagulation Clinic Pharmacy Anticoagulation Clinic Pager: [phone]. [facility]04[facility] Miscellaneous Notes* Telephone Encounter - Coretta Jalloh RPh - 07/15/2023 3:18 PM EDT [facility] Ambulatory Pharmacy Anticoagulation Clinic Anticoagulation Episode Summary Anticoagulation Care Providers Provider Role Specialty Phone number Stas Mora MD Referring Family Medicine [phone] Roby Flores is a 87 year old [...] ALLERGIES No Known Allergies Indication for Warfarin: snf current use of anticoagulant Paroxysmal atrial fibrillation [...] Pharmacy Anticoagulation Clinic Pharmacy Anticoagulation Clinic Pager: [phone]. documented in this encounterAvita Health [facility]04-17-2024 Miscellaneous Notes* Telephone Encounter - Coretta Jalloh [facility] - 07/08/2023 4:36 PM EDT [facility] Ambulatory [facility]acy Anticoagulation Clinic Anticoagulation Episode Summary Anticoagulation Care Providers Provider Role Specialty Phone number Stas Mora MD Referring Family Medicine [phone] Roby Flores is a 87 year old [...] ALLERGIES No Known Allergies Indication for Warfarin: snf current use of anticoagulant Paroxysmal atrial fibrillation [...] Pharmacy Anticoagulation Clinic Pharmacy Anticoagulation Clinic Pager: [phone]. documented in this encounterAvita [facility]04-10-2024 Miscellaneous Notes* Telephone Encounter - Coretta Jalloh RPh - 07/01/2023 5:20 PM EDT [facility] Ambulatory [facility]acy Anticoagulation Clinic Anticoagulation Episode Summary Anticoagulation Care Providers Provider Role Specialty Phone number Stas Mora MD Referring Family Medicine [phone] Roby Flores is a 87 year old [...] ALLERGIES No Known Allergies Indication for Warfarin: snf current use of anticoagulant Paroxysmal atrial fibrillation [...] Pharmacy Anticoagulation Clinic Pharmacy Anticoagulation Clinic Pager: [phone]. documented in this encounterAvita Health [facility]04-04-2024 Telephone encounter Note * Telephone Encounter - Adrian ([employer]Elana - 06/25/2023 5:14 PM EDT Images from [...] remains on Remote TM list. Elana Campbell ([employer] [facility]04-04-2024 Miscellaneous Notes* Telephone Encounter - Adrian [employer]Elana Berry - 06/25/2023 5:14 PM EDT Images [...] remains on Remote TM list. Elana Campbell ([employer] * Telephone Encounter - Stas Mora MD - 06/25/2023 4:44 PM EDT It looks like my office became involved because the on-call doctor was called with his elevated INR. I would prefer he stay with the pharmacy for his routine monitoring. Stas Mora MD * Telephone Encounter - Adrian [employer]Elana - 06/25/2023 4:03 PM EDT Pharm Phone [...] this time Please advise. Elana Campbell CPhT (Manufacturing Advisor) Pharmacy Anticoagulation Clinic documented in this encounterAvita Health [facility]04-04-2024 Telephone encounter Note * Telephone Encounter - Stas Mora MD - 06/25/2023 4:44 PM EDT It looks like my office became involved because the on-call doctor was called with his elevated INR. I would prefer he stay with the pharmacy for his routine monitoring. Stas Mora MD [facility]04-04-2024 Telephone encounter Note* Telephone Encounter - Adrian (Media Manager)Elana - 06/25/2023 4:03 PM EDT Pharm Phone [...] this time Please advise. Elana Campbell CPhT (Manufacturing Advisor) Pharmacy Anticoagulation Clinic [facility]04-03-2024 Miscellaneous Notes* Telephone Encounter - Jason [...] with VKA drugs, such as warfarin, the [employer] 2012 Guideline recommends [...] Chest 2012, 141:7S-47S Avel RA, et al. [facility] 2017, 70: [phone] Confirmed that pt is taking 1 mg daily. No changes to diet, medications, missed or extra doses, etc. Keke Tsang MA documented in this encounterAvita Health System [facility]03-22-2024 Miscellaneous Notes* Telephone Encounter - Marta Palacio MA - 06/12/2023 11:21 AM EDT Gabby notified and voiced understanding. Tracker and med list updated. Marta Palacio MA * Telephone Encounter - Luz Elena Giraldo APRN.SHEMAR - 06/12/2023 9:39 AM EDT Continue current Coumadin dose, recheck again in 2 weeks. Luz Elena Giraldo APRN.GUEST ATTENDANT * Telephone Encounter - Rosie Cruz Ma - 06/11/2023 4:24 PM EDT Last INR: PT INR 2.2 06/11/2023 Current dose of coumadin is: 1 mg daily. Last date of dose change: 06/08/23. Previous INR (date and result): 3.2 on 06/08/23 Additional Clinical Information or narrative: no Rosie Cruz Ma documented in this encounterAvita Health [facility]03-18-2024 Miscellaneous Notes* Telephone Encounter - Keke [...] Information or narrative: no documented in this encounterAvita Health System [facility]03-15-2024 Miscellaneous Notes* Telephone Encounter - Halina [...] went over notes below from Jenna Fitzpatrick [employer]. She said no change in his diet, not taking any antibiotics, has not taken double dose. Patient currently taking coumadin2.5 mg daily. * Telephone Encounter - Jenna Fiztpatrick APRN.CNP - 06/05/2023 9:11 AM EDT Attempted to call the patient and daughter to discuss critical lab value that was received yesterday. On-call provider tried calling the patient last night several times without answer. I attempted to call the patient again this morning and his daughter without answer. INR was 6.9. Jenna Fitzpatrick APRN.SHEMAR documented in this encounterAvita Health [facility]03-15-2024 Miscellaneous Notes* Telephone Encounter - Marta Palacio MA - 06/05/2023 10:15 AM EDT See phone note 06/05/23 with Jenna Fitzpatrick. Marta Palacio MA * Telephone Encounter - Jasmin Bell MD - 06/04/2023 7:59 PM EDT Been trying to call patient at numbers give and goes straight to . Sending [employer] message in case will see that sooner. After multiple attempts, I called [facility]. They cannot call the patient but if the patient calls them, they will conference call with me. documented in this encounterAvita Health [facility]03-15-2024 Miscellaneous Notes* Telephone Encounter - Marta [...] message on daughter Anabella's mobile. Sent a [employer] message too. Called [facility] and the will conference call me if patient calls them. documented in this encounterAvita Health [facility]03-14-2024 Miscellaneous Notes* Telephone Encounter - Hortencia Winston RN - 06/04/2023 8:[address] Bell has left messages for the patient to call back regarding a critical lab. documented in this encounterAvita Health [facility]03-14-2024 Miscellaneous Notes* Telephone Encounter - Minda [...] has any questions. Thank you. Jenna Fitzpatrick APRN.GUEST ATTENDANT documented in this encounterAvita Health [facility]03-13-2024 Miscellaneous Notes* Telephone Encounter - Coretta Jalloh, [facility] - 06/03/2023 3:22 PM EDT [facility] Ambulatory [facility]acy Anticoagulation Clinic Anticoagulation Episode Summary Anticoagulation Care Providers Provider Role Specialty Phone number Stas Mora MD Referring Family Medicine [phone] Roby Flores is a 87 year old [...] ALLERGIES No Known Allergies Indication for Warfarin: 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 Paroxysmal atrial fibrillation [...] the plan. Patient denies need for refills. Corteta Jalloh RPh Clinical Pharmacist, Pharmacy Anticoagulation Clinic Pharmacy Anticoagulation Clinic Pager: [phone]. documented in this encounterAvita Health [facility]03-11-2024 History of Present illness Narrative* Stas [...] Coronary atherosclerosis of unspecified type of vessel, [place] or graft Coronary artery disease Other and [...] unspecified vessel or lesion type, unspecified whether [place] or transplanted heart - ICD9: 414.00, ICD10: [...] Past Histories independently gathered by the clinical product support representative and the remaining scribed note accurately describes [...] PM. Marta Palacio MA documented in this encounterAvita Health [facility]03-06-2024 Miscellaneous Notes* Telephone Encounter - Coretta Jalloh [facility] - 05/27/2023 2:23 PM EST [facility] Ambulatory [facility]acy Anticoagulation Clinic Anticoagulation Episode Summary Anticoagulation Care Providers Provider Role Specialty Phone number Stas Mora MD Referring Family Medicine [phone] Roby Radha Flores is a 87 year old year old male patient being evaluated today for a [facility]acy Anticoagulation Clinic Anticoagulation Episode Summary Anticoagulation Care Providers Provider Role Specialty Phone number Stas Mora MD Referring Family Medicine [phone] Roybimelda Flores is a 87 year old year [...] ALLERGIES No Known Allergies Indication for Warfarin: 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 Paroxysmal atrial fibrillation [...] Pharmacy Anticoagulation Clinic Pharmacy Anticoagulation Clinic Pager: [phone]. documented in this encounterAv[facility]-28-[facility] Miscellaneous Notes* Telephone Encounter - Coretta Jalloh RPh - 05/20/2023 2:36 PM EST [facility] Anticoagulation Episode Summary Anticoagulation Care Providers Provider Role Specialty Phone number Stas Mora MD Referring Family Medicine [phone] Roby Flores is a 87 year old [...] ALLERGIES No Known Allergies Indication for Warfarin: 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 Paroxysmal atrial fibrillation [...] Pharmacy Anticoagulation Clinic Pharmacy Anticoagulation Clinic Pager: [phone]. documented in this encounterAvita [facility]02-21-2024 Miscellaneous Notes* Telephone Encounter - Senia PhillipsEnrique - 05/13/2023 4:06 PM EST [facility] Clinic Anticoagulation Episode Summary Anticoagulation Care Providers Provider Role Specialty Phone number Stas Mora MD Referring Family Medicine [phone] Roby Flores is a 87 year old [...] ALLERGIES No Known Allergies Indication for Warfarin: snf current use of anticoagulant Paroxysmal atrial fibrillation [...] Pharmacy Anticoagulation Clinic Pharmacy Anticoagulation Clinic Pager: [phone]. documented in this encounterAvita [facility]02-14-2024 Miscellaneous Notes* Telephone Encounter - oCretta Jalloh RPh - 05/06/2023 3:14 PM EST [facility] Clinic Anticoagulation Episode Summary Anticoagulation Care Providers Provider Role Specialty Phone number Stas Mora MD Referring Family Medicine [phone] Roby Flores is a 87 year old [...] ALLERGIES No Known Allergies Indication for Warfarin: 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 Paroxysmal atrial fibrillation [...] Next lab INR check scheduled on 05/13/2023 for Diana. Coretta Jalloh RPh Clinical Pharmacist, Pharmacy Anticoagulation Clinic Pharmacy Anticoagulation Clinic Pager: [phone]. documented in this encounterAvita [facility]02-07-2024 Miscellaneous Notes* Telephone Encounter - Coretta Jalloh RPh - 04/29/2023 4:00 PM EST [facility] Anticoagulation Episode Summary Anticoagulation Care Providers Provider Role Specialty Phone number Stas Mora MD Referring Family Medicine [phone] Roby Flores is a 87 year old [...] ALLERGIES No Known Allergies Indication for Warfarin: snf current use of anticoagulant Paroxysmal atrial fibrillation [...] INR check scheduled on 05/06/2023 Coretta Jalloh riya Clinical Pharmacist, Pharmacy Anticoagulation Clinic Pharmacy Anticoagulation Clinic Pager: [phone]. documented in this encounterAvita [facility]12-01-2023 Miscellaneous Notes* Telephone Encounter - Elise Paredes [facility] - 02/20/2023 3:37 PM EST [facility] Clinic Anticoagulation Episode Summary Anticoagulation Care Providers Provider Role Specialty Phone number Stas Mora MD Referring Family Medicine [phone] Roby Flores is a 87 year old [...] ALLERGIES No Known Allergies Indication for Warfarin: snf current use of anticoagulant Paroxysmal atrial fibrillation [...] Pharmacy Anticoagulation Clinic Pharmacy Anticoagulation Clinic Pager: [phone]. documented in this encounterAvita [facility]11-28-2023 Miscellaneous Notes* Telephone Encounter - Franca [...] Palacio MA * Telephone Encounter - Stas Mroa MD - 02/17/2023 9:36 AM EST Please notify patient that his MRI does show a small stoke. Unless he is much better today I would recommend return to ER; I think he would benefit from admission for further evaluation and therapy evaluation Stas Mora MD documented in this encounterAvita Health System [facility]11-28-2023 History of Present illness Narrative* Janelle Rivera, RT(R) - 02/17/2023 7:30 AM EST Radiology [...] 17, 2023 7:43 AM documented in this encounterAvita Health System [facility]11-27-2023 History of Present illness Narrative* Stas Mora MD - 02/16/2023 2:00 PM EST Chief Complaint Patient presents with: ED Follow-up HPI Roby Flores is a 87 year old male who presents here today for ER Follow Up.. Pt went to the [facility] ER on 02/10/23 with c/o fatigue, [...] Recheck in 1 week. Below copied from [employer]: Chief Complaint: Fatigue Informant: patient Onset/Context/Timing Onset: [...] any urinary complaints. Patient denies any headaches. MDM Narrative Medical decision making narrative: Differential [...] Coronary atherosclerosis of unspecified type of vessel, [place] or graft Coronary artery disease Other and [...] Completed Pneumococcal Vaccine: 65+ Completed Data reviewed [facility] ER reports 02/10/23 ASSESSMENT/PLAN: 1. Cerebral [...] Past Histories independently gathered by the clinical product support representative and the remaining scribed note accurately describes [...] PM. Marta Palacio Ma documented in this encounterAvita [facility]11-24-2023 Miscellaneous Notes* Telephone Encounter - Reggie Elise Brady, [facility] - 02/13/2023 3:56 PM EST [facility] Clinic Anticoagulation Episode Summary Anticoagulation Care Providers Provider Role Specialty Phone number Stas Mora MD Referring Family Medicine [phone] Roby Flores is a 87 year old [...] ALLERGIES No Known Allergies Indication for Warfarin: 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 Paroxysmal atrial fibrillation [...] INR check scheduled on 02/20/2023 Elise Paredes [facility] Clinical Pharmacist, Pharmacy Anticoagulation Clinic Pharmacy Anticoagulation Clinic Pager: [phone]. documented in this encounterAvita [facility]11-17-2023 Miscellaneous Notes* Telephone Encounter - Senia Phillips RP - 02/06/2023 4:28 PM EST [facility] Anticoagulation Clinic Anticoagulation Episode Summary Anticoagulation Care Providers Provider Role Specialty Phone number Stas Mora MD Referring Family Medicine [phone] Roby Flores is a 87 year old [...] ALLERGIES No Known Allergies Indication for Warfarin: 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 Paroxysmal atrial fibrillation [...] Pharmacy Anticoagulation Clinic Pharmacy Anticoagulation Clinic Pager: [phone]. documented in this encounterAvita Health System [facility]10-06-2023 Miscellaneous Notes* Telephone Encounter - Senia Phillips RPh - 12/26/2022 3:04 PM EDT [facility] Clinic Anticoagulation Episode Summary Anticoagulation Care Providers Provider Role Specialty Phone number Stas Mora MD Referring Family Medicine [phone] Roby Flores is a 87 year old [...] ALLERGIES No Known Allergies Indication for Warfarin: 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 Paroxysmal atrial fibrillation (hcc) Anticoagulation Episode Summary Current INR goal: 2.0-3.0 Assessment: INR result of 2.5 is therapeutic Plan: Current Warfarin Dosing As of 12/26/2022 Full warfarin instructions: 2.5 mg every day Sent [employer] message Advised patient to continue current weekly dose as noted above Next lab INR check scheduled on 01/09/2023 Senia Phillips RPh Clinical Pharmacist, Pharmacy Anticoagulation Clinic Pharmacy Anticoagulation Clinic Pager: [phone]. documented in this encounterAvita Health [facility]09-29-2023 Miscellaneous Notes* Telephone Encounter - Senia Phillips RPh - 12/19/2022 4:30 PM EDT [facility] Anticoagulation Clinic Anticoagulation Episode Summary Anticoagulation Care Providers Provider Role Specialty Phone number Stas Mora MD Referring Family Medicine [phone] Roby Flores is a 87 year old [...] ALLERGIES No Known Allergies Indication for Warfarin: snf current use of anticoagulant Paroxysmal atrial fibrillation (hcc) Anticoagulation Episode Summary Current INR goal: 2.0-3.0 Assessment: INR result of 2.0 is therapeutic Plan: Current Warfarin Dosing As of 12/19/2022 Full warfarin instructions: 2.5 mg every day Sent [employer] message Advised patient to continue current weekly dose as noted above Next lab INR check scheduled on 01/02/2023 Senia Phillips RPh Clinical Pharmacist, Pharmacy Anticoagulation Clinic Pharmacy Anticoagulation Clinic Pager: [phone]. documented in this encounterAvita Health [facility]09-22-2023 Miscellaneous Notes* Telephone Encounter - Senia Phillips RPh - 12/12/2022 4:01 PM EDT [facility] Anticoagulation Clinic Anticoagulation Episode Summary Anticoagulation Care Providers Provider Role Specialty Phone number Stas Mora MD Referring Family Medicine [phone] Roby Flores is a 87 year old [...] ALLERGIES No Known Allergies Indication for Warfarin: 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 Paroxysmal atrial fibrillation [...] Pharmacy Anticoagulation Clinic Pharmacy Anticoagulation Clinic Pager: [phone]. documented in this encounterAvita Health [facility]09-01-2023 Miscellaneous Notes* Telephone Encounter - Jeimy Duong RPh - 11/21/2022 2:38 PM EDT [facility] Ambulatory Pharmacy Anticoagulation Clinic Anticoagulation Episode Summary Anticoagulation Care Providers Provider Role Specialty Phone number Stas Mora MD Referring Family Medicine [phone] Roby Flores is a 87 year old [...] Pharmacy Anticoagulation Clinic Pharmacy Anticoagulation Clinic Pager: [phone]. documented in this encounterAvita Health System [facility]08-28-2023 Hospital Discharge instructions Patient Education 11/17/2022 [...] Wound changes colors Numbness around the wound 2984-5775 [employer]. [address] [place] [address], [place] [address]. All rights reserved. This information is not [...] the ears or bruising around the eyes 8446-[address] [employer] [place] [address], [place] [address]. All rights reserved. This information is not intended as a substitute for professional medical care. Always follow yourhealthcare professional's instructions. Follow Up Care 11/17/2022 15:05:08 With:Call Physician Referral Address:Unknown When:2-4 days [facility] 08-28-2023 Note Discharge Instructions Thank you for allowing [facility] to assist you with your healthcare needs. [...] Thu / / Thu / Thu / Sat Please take this list to your next [...] Wound changes colors Numbness around the wound 3426-2587 [employer]. [address] [place] [address]. All rights reserved. This information is not [...] the ears or bruising around the eyes 8428-9274 [employer]. [address] [place] [address]. All rights reserved. This information is not intended as a substitute for professional medical care. Always follow yourhealthcare professional's instructions. Additional Information VACCINATE! IT SAVES LIVES! Members of the community who have not yet received the COVID-19 vaccine and would like to receive it can visit one of [facility] vaccine clinics. There are many vaccine clinic locations within the [facility]. For locations and available times, please visit [email or web address] It is important to note that some COVID mobile vaccine clinics are held outdoors and may be canceled in rainy or stormy conditions. To learn more about pediatric vaccinations (ages 5-11), we invite you to visit the [facility] webpage. [email or web address]://www.[email or web address]/pages/[email or web address]-Dvkxrknlmpm-Xjbwhroryb-[email or web address]-Dpo stions.htmlTo learn more about the COVID-19 vaccine, we invite you to visit the CDC website for a list of frequently asked questions. https://www.cdc.gov/coronavirus/2019-ncov/vaccines/faq.html [facility] Patient Portal Access Instructions: Stay connected with your healthcare team and access your personal medical information anytime with the [facility] Patient Portal. If you would like a full copy of your medical records please contact the [facility] Medical Records Department Thursday through Thursday between 8a.m. and 4:30p.m. Please follow the directions below to access the portal: 1.Access the email account you provided upon registration to the hospital.2.Look for an invitation email from [facility].3.Open the email and access the invitation link: Accept Invitation to [facility]4.Fill in the required العلي to create your account. Sign into [email or web address] with your username and password that you [...] you will allow to register on the [facility] Patient Portal for access to your information. You can also access the [facility] Patient Portal on the [employer]. Simply click on "Health Records" under "[employer]" and then click on the [facility] logo. HOW TO SAFELY DISPOSE OF PRESCRIPTION [...] Call your local pharmacy or go to [email or web address]/[email or web address] to find one close to you.3.Make use of household items: Use cat litter or old coffee grounds to dispose medications if other options arenot available. Mix your drugs with these household products, seal them in an airtight container andthrow it into the garbage. Call [facility]: [phone] to be sure your drugs can be [...] been reviewed and explained to me and I,ROBY FLORES understand my current condition and have read and understand these discharge instructions. I have received a written copy of the plan/instructions. If I have questions, I am aware that I should contact my doctor. 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: Date/Time: Relationship to Patient: Witness Name/Signature: Date/Time: [facility]08-28-2023 Note ORIGINAL EXAMINATION: CT OF [...] 11/17/2022 4:26:20 PM Ordering Provider: [facility]08-18-2023 Miscellaneous Notes* Telephone Encounter - Senia Phillips [facility] - 11/07/2022 3:22 PM EDT [facility] Ambulatory Pharmacy Anticoagulation Clinic Anticoagulation Episode Summary Anticoagulation Care Providers Provider Role Specialty Phone number Stas Mora MD Referring Family Medicine [phone] Roby Flores is a 87 year old [...] ALLERGIES No Known Allergies Indication for Warfarin: snf current use of anticoagulant Paroxysmal atrial fibrillation (hcc) Anticoagulation Episode Summary Current INR goal: 2.0-3.0 Assessment: INR result of 2.2 is therapeutic Plan: Current Warfarin Dosing As of 11/07/2022 Full warfarin instructions: 2.5 mg every day Sent [employer] message Advised patient to continue current weekly dose as noted above Next lab INR check scheduled on 11/21/2022 Senia Phillips RPh Clinical Pharmacist, Pharmacy Anticoagulation Clinic Pharmacy Anticoagulation Clinic Pager: [phone]. documented in this encounterAvita Health [facility]08-11-2023 Miscellaneous Notes* Telephone Encounter - Senia Phillips RPh - 10/31/2022 2:29 PM EDT Patient due to test INR today. Will continue to monitor for results. Senia Phillips RPh documented in this encounterAvita Health [facility]08-04-2023 Miscellaneous Notes* Telephone Encounter - Senia Phillips RPh - 10/24/2022 3:13 PM EDT [facility] Ambulatory Pharmacy Anticoagulation Clinic Anticoagulation Episode Summary Anticoagulation Care Providers Provider Role Specialty Phone number Stas Mora MD Referring Family Medicine [phone] Roby Flores is a 87 year old [...] ALLERGIES No Known Allergies Indication for Warfarin: snf current use of anticoagulant Paroxysmal atrial fibrillation (hcc) Anticoagulation Episode Summary Current INR goal: 2.0-3.0 Assessment: INR result of 2.5 is therapeutic Plan: Current Warfarin Dosing As of 10/24/2022 Full warfarin instructions: 2.5 mg every day Sent [employer] message Advised patient to decrease total weekly regimen to better reflect overall dose given past few weeks Next lab INR check scheduled on 10/31/2022 Senia Phillips RPh Clinical Pharmacist, Pharmacy Anticoagulation Clinic Pharmacy Anticoagulation Clinic Pager: [phone]. documented in this encounterAvita Health [facility]07-28-2023 Miscellaneous Notes* Telephone Encounter - Jason [...] Anticoagulation TE call from today by the [facility]. They spoke with pt at [phone] and gave pt instructions on what to do. 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 documented in this encounterAvita Health [facility]07-07-2023 Miscellaneous Notes* Telephone Encounter - Jeimy Duong RPh - 09/26/2022 2:11 PM EDT [facility] Ambulatory Pharmacy Anticoagulation Clinic Anticoagulation Episode Summary Anticoagulation Care Providers Provider Role Specialty Phone number Stas Mora MD Referring Family Medicine [phone] Roby Flores is a 87 year old [...] Pharmacy Anticoagulation Clinic Pharmacy Anticoagulation Clinic Pager: [phone]. 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 documented in this encounterAvita Health System [facility]06-06-2023 Instructions* Patient Instructions* Marta Palacio Ma - 08/26/2022 1:36 PM EDT Please check your medications when you get home and make sure that your medications match our list. documented in this encounterAvita Health System [facility]06-06-2023 History of Present illness Narrative* Stas Mora MD - 08/26/2022 1:20 PM EDT Medical B eligibilty date 1999 Date of last exam 09/05/2021 PAST MEDICAL HISTORY Diagnosis Date Coronary atherosclerosis of unspecified type of vessel, [place] or graft Coronary artery disease Other and [...] Past Histories independently gathered by the clinical product support representative and the remaining scribed note accurately describes my personal service to the patient. Stas Mora MD The documentation for this note was completed by Marta Palacio Ma acting as scribe for Stas Mora MD. August 26, 2022 1:17 PM. Marta Palacio Ma documented in this encounterAvita Health System [facility]06-02-2023 Miscellaneous Notes* Telephone Encounter - Senia Phillips RPh - 08/22/2022 2:50 PM EDT [facility] Ambulatory Pharmacy Anticoagulation Clinic Anticoagulation Episode Summary Anticoagulation Care Providers Provider Role Specialty Phone number Stas Mora MD Referring Family Medicine [phone] Roby Flores is a 87 year old [...] ALLERGIES No Known Allergies Indication for Warfarin: snf current use of anticoagulant Paroxysmal atrial fibrillation (hcc) Anticoagulation Episode Summary Current INR goal: 2.0-3.0 Assessment: INR result of 2.4 is therapeutic Plan: Current Warfarin Dosing As of 08/22/2022 Full warfarin instructions: 3.75 mg every Fri; 2.5 mg all other days Sent [employer] message Advised patient to continue current weekly dose as noted above Next lab INR check scheduled on 08/29/2022 Senia Phillips RPh Clinical Pharmacist, Pharmacy Anticoagulation Clinic Pharmacy Anticoagulation Clinic Pager: [phone]. documented in this encounterAvita Health System [facility]04-28-2023 Miscellaneous Notes* Telephone Encounter - Senia Phillips RPh - 07/18/2022 3:29 PM EDT [facility] Ambulatory Pharmacy Anticoagulation Clinic Anticoagulation Episode Summary Anticoagulation Care Providers Provider Role Specialty Phone number Stas Mora MD Referring Family Medicine [phone] Roby Flores is a 86 year old [...] ALLERGIES No Known Allergies Indication for Warfarin: snf current use of anticoagulant Paroxysmal atrial fibrillation (hcc) Anticoagulation Episode Summary Current INR goal: 2.0-3.0 Assessment: INR result of 2.1 is therapeutic Plan: Current Warfarin Dosing As of 07/18/2022 Full warfarin instructions: 2.5 mg every day Sent [employer] message Advised patient to continue current weekly dose as noted above Next lab INR check scheduled on 08/01/2022 Senia Phillips RPh Clinical Pharmacist, Pharmacy Anticoagulation Clinic Pharmacy Anticoagulation Clinic Pager: [phone]. documented in this encounterAvita Health [facility]04-14-2023 Miscellaneous Notes* Telephone Encounter - Lety Gandara [facility] - 07/04/2022 3:46 PM EDT [facility] Ambulatory Pharmacy Anticoagulation Clinic Anticoagulation Episode Summary Anticoagulation Care Providers Provider Role Specialty Phone number Stas Mora MD Referring Family Medicine [phone] Roby Flores is a 86 year old [...] ALLERGIES No Known Allergies Indication for Warfarin: snf current use of anticoagulant Paroxysmal atrial fibrillation [...] Patient denies need for refills. Lety Gandara RPh Clinical Pharmacist, Pharmacy Anticoagulation Clinic Pharmacy Anticoagulation Clinic Pager: [phone]. documented in this encounterAvita Health System [facility]04-03-2023 Miscellaneous Notes* Telephone Encounter - Elvis Kearney APRN.CNP - 06/23/2022 10:17 AM EDT The following approved medication requests have been transmitted electronically. Requested Prescriptions Pending Prescriptions Disp Refills warfarin (COUMADIN) 2.5 mg tablet [Pharmacy Med Name: WARFARIN SODIUM 2.5 MG TABLET] 135 tablet 3 Sig: TAKE 5 MG EVERY MON, DIXIE 2.5 MG ALL OTHER DAYS Elvis Kearney APRN.CNP documented in this encounterAvita Health System [facility]03-31-2023 Miscellaneous Notes* Telephone Encounter - Senia Phillips RPh - 06/20/2022 4:46 PM EDT [facility] Ambulatory Pharmacy Anticoagulation Clinic Anticoagulation Episode Summary Anticoagulation Care Providers Provider Role Specialty Phone number Stas Mora MD Referring Family Medicine [phone] Roby Flores is a 86 year old [...] ALLERGIES No Known Allergies Indication for Warfarin: 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 Paroxysmal atrial fibrillation [...] Pharmacy Anticoagulation Clinic Pharmacy Anticoagulation Clinic Pager: [phone]. documented in this encounterAvita Health [facility]03-17-2023 Miscellaneous Notes* Telephone Encounter - Senia Phillips RPh - 06/06/2022 4:18 PM EDT [facility] Ambulatory Pharmacy Anticoagulation Clinic Anticoagulation Episode Summary Anticoagulation Care Providers Provider Role Specialty Phone number Stas Mora MD Referring Family Medicine [phone] Roby Flores is a 86 year old [...] ALLERGIES No Known Allergies Indication for Warfarin: 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 Paroxysmal atrial fibrillation (hcc) Anticoagulation Episode Summary Current INR goal: 2.0-3.0 Assessment: INR result of 2.6 is therapeutic Plan: Current Warfarin Dosing As of 06/06/2022 Full warfarin instructions: 2.5 mg every day Sent [employer] message Advised patient to continue current weekly dose as noted above Next lab INR check scheduled on 06/20/2022 Senia Phillips RPh Clinical Pharmacist, Pharmacy Anticoagulation Clinic Pharmacy [facility] Pager: [phone]. documented in this encounterAvita [facility]03-10-2023 Miscellaneous Notes* Telephone Encounter - Neeru Rice LPN - 05/30/2022 3:02 PM EST Pharmacists manage INR documented in this encounterAvita Health System [facility]03-02-2023 Miscellaneous Notes* Telephone Encounter - Halina [...] has any questions. Thank you. Jenna Fitzpatrick APRN.GUEST ATTENDANT documented in this encounterAvita Health System [facility]03-01-2023 Miscellaneous Notes* Telephone Encounter - Judy [...] hip/leg 10. : na Protocols used: Hip Nomf-EWAEM-VF, Hip Hksszq-HNZXI-UD documented in this encounterAvita Health System [facility]03-01-2023 Miscellaneous Notes* Telephone Encounter - Fani Grace RN - 05/21/2022 12:22 PM EST Patient disconnected during transferred, called multiple time with no answer. documented in this encounterAvita Health System [facility]02-27-2023 Miscellaneous Notes* Telephone Encounter - Paige [...] instructions. Franca Cohen LPN documented in this encounterAvita Health System [facility]02-24-2023 Miscellaneous Notes* Telephone Encounter - Senia Phillips RP - 05/16/2022 5:10 PM EST Patient due to test INR today. Will continue to monitor for results. Senia Phillips RPh documented in this encounterAvita Health System [facility]02-10-2023 Miscellaneous Notes* Telephone Encounter - Senia Phillips [facility] - 05/02/2022 3:06 PM EST [facility] Anticoagulation Episode Summary Anticoagulation Care Providers Provider Role Specialty Phone number Stas Mora MD Referring Family Medicine [phone] Roby Flores is a 86 year old year old male patient being evaluated today for a Telemanagement visit. Patient is currently on the following anticoagulant(s) Warfarin. Labs PT INR (no units) Date Value 05/15/2021 2.3 04/17/2021 1.9 03/13/2021 Test sent to [facility]. INR (no units) Date Value 05/02/2022 [...] ALLERGIES No Known Allergies Indication for Warfarin: snf current use of anticoagulant Paroxysmal atrial fibrillation (hcc) Anticoagulation Episode Summary Current INR goal: 2.0-3.0 Assessment: INR result of 2.1 is therapeutic Plan: Current Warfarin Dosing As of 05/02/2022 Full warfarin instructions: 2.5 mg every day Sent [employer] message Advised patient to continue current weekly dose as noted above Next lab INR check scheduled on 05/16/2022 Senia Phillips RPh Clinical Pharmacist, Pharmacy Anticoagulation Clinic Pharmacy Anticoagulation Clinic Pager: [phone]. documented in this encounterAvita Health System [facility]01-27-2023 Miscellaneous Notes* Telephone Encounter - Senia Phillips RPh - 04/18/2022 4:25 PM EST [facility] Anticoagulation Episode Summary Anticoagulation Care Providers Provider Role Specialty Phone number tSas Mora MD Referring Family Medicine [phone] Roby Flores is a 86 year old year old male patient being evaluated today for a Telemanagement visit. Patient is currently on the following anticoagulant(s) Warfarin. Labs PT INR (no units) Date Value 05/15/2021 2.3 04/17/2021 1.9 03/13/2021 Test sent to [facility]. INR (no units) Date Value 04/18/2022 [...] ALLERGIES No Known Allergies Indication for Warfarin: snf current use of anticoagulant Paroxysmal atrial fibrillation (hcc) Anticoagulation Episode Summary Current INR goal: 2.0-3.0 Assessment: INR result of 2.4 is therapeutic Plan: Current Warfarin Dosing As of 04/18/2022 Full warfarin instructions: 2.5 mg every day; Starting 04/18/2022 Sent [employer] message Advised patient to continue current weekly dose as noted above Next lab INR check scheduled on 05/02/2022 Senia Phillips RPh Clinical Pharmacist, Pharmacy Anticoagulation Clinic Pharmacy Anticoagulation Clinic Pager: [phone]. documented in this encounterAvita Health System [facility]01-13-2023 Miscellaneous Notes* Telephone Encounter - Elise Paredes RPh - 04/04/2022 4:09 PM EST [facility] Anticoagulation Episode Summary Anticoagulation Care Providers Provider Role Specialty Phone number Stas Mora MD Referring Family Medicine [phone] Roby Flores is a 86 year old year old male patient being evaluated today for a Lab INR. Patient is currently on the following anticoagulant(s) Warfarin. Labs PT INR (no units) Date Value 05/15/2021 2.3 04/17/2021 1.9 03/13/2021 Test sent to [facility]. INR (no units) Date Value 04/04/2022 [...] ALLERGIES No Known Allergies Indication for Warfarin: 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 Paroxysmal atrial fibrillation [...] getting labs every 2 weeks Elise Paredes [facility] Clinical Pharmacist, Pharmacy Anticoagulation Clinic Pharmacy Anticoagulation Clinic Pager: [phone]. documented in this encounterAvita Health System [facility]01-09-2023 Miscellaneous Notes* Telephone Encounter - Rosie Cruz Ma - 03/31/2022 5:12 PM EST Office received continuity of care paperwork from the [place] requesting pt's last OV, labs and Imm. PerPCP okay to fax back requested records. Faxed back to [facility] at F#: [phone]. Rosie Cruz Ma documented in this encounterAvita Health System [facility]12-30-2022 Miscellaneous Notes* Telephone Encounter - Carmelina Cruz RPh - 03/21/2022 4:05 PM EST [facility] Anticoagulation Episode Summary Anticoagulation Care Providers Provider Role Specialty Phone number Stas Mora MD Referring Family Medicine [phone] Roby Flores is a 86 year old year old male patient being evaluated today for a Telemanagement visit. Patient is currently on the following anticoagulant(s) Warfarin. Labs PT INR (no units) Date Value 05/15/2021 2.3 04/17/2021 1.9 03/13/2021 Test sent to [facility]. INR (no units) Date Value 03/21/2022 [...] ALLERGIES No Known Allergies Indication for Warfarin: snf current use of anticoagulant Paroxysmal atrial fibrillation (hcc) Anticoagulation Episode Summary Current INR goal: 2.0-3.0 Assessment: INR result of 2.9 is therapeutic Plan: Current Warfarin Dosing As of 03/21/2022 Full warfarin instructions: 2.5 mg every day; Starting 03/21/2022 Sent [employer] message Advised patient to continue current weekly dose as noted above Next home INR check scheduled on 04/04/2022 Carmelina Cruz RPh Clinical Pharmacist, Pharmacy Anticoagulation Clinic Pharmacy Anticoagulation Clinic Pager: [phone]. * Telephone Encounter - Carmelina Cruz RPh - 03/21/2022 3:12 PM EST Patient due to test INR today. Will continue to monitor for results. Carmelina Cruz RPh documented in this encounterAvita Health System [facility]12-02-2022 Miscellaneous Notes* Telephone Encounter - Oliva [...] whatever he wanted to. documented in this encounterAvita Health System [facility]10-31-2022 Miscellaneous Notes* Telephone Encounter - Paige Hickman RPh - 01/20/2022 3:55 PM EDT [facility] Anticoagulation Episode Summary Anticoagulation Care Providers Provider Role Specialty Phone number Stas Mora MD Referring Family Medicine [phone] Roby Flores is a 86 year old year old male patient being evaluated today for a Telemanagement visit. Patient is currently on the following anticoagulant(s) Warfarin. Labs PT INR (no units) Date Value 05/15/2021 2.3 04/17/2021 1.9 03/13/2021 Test sent to [facility]. INR (no units) Date Value 01/20/2022 [...] instructed to call [facility] at [phone] with any questionsor concerns. Paige Hickman [facility] Clinical Pharmacist, Pharmacy Anticoagulation Clinic Pharmacy Anticoagulation Clinic Pager: [phone] documented in this encounterAvita Health System [facility]10-28-2022 Miscellaneous Notes* Telephone Encounter - Senia [...] the providers message. Sent information as a [employer] message as well. Elana Valdes, RN * Telephone Encounter - Stas Mora MD - 01/17/2022 4:25 PM EDT Hold coumadin Recheck INR on Thursday tSas Mora MD * Telephone Encounter - Rosie [...] to contact patient with no answer at [phone]. Current dose of coumadin is: 2.5 mg every day . Previous INR (date and result): 01/03/22 2.4 documented in this encounterAvita Health System [facility]10-24-2022 Miscellaneous Notes* Telephone Encounter - Jenna [...] tablet by mouth once daily. Jenna Fitzpatrick APRN.CNP * Telephone Encounter - López Mckenna LPN [...] advise. López Mckenna LPN documented in this encounterAvita Health System [facility]10-14-2022 Miscellaneous Notes* Telephone Encounter - Senia Phillips [facility] - 01/03/2022 4:11 PM EDT [facility] Amb[facility] Anticoagulation Clinic Anticoagulation Episode Summary Anticoagulation Care Providers Provider Role Specialty Phone number Stas Mora MD Referring Family Medicine [phone] Roby Flores is a 86 year old year old male patient being evaluated today for a Telemanagement visit. Patient is currently on the following anticoagulant(s) Warfarin. Labs PT INR (no units) Date Value 05/15/2021 2.3 04/17/2021 1.9 03/13/2021 Test sent to [facility]. INR (no units) Date Value 01/03/2022 [...] ALLERGIES No Known Allergies Indication for Warfarin: 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 Paroxysmal atrial fibrillation (hcc) Anticoagulation Episode Summary Current INR goal: 2.0-3.0 Assessment: INR result of 2.4 is therapeutic Plan: Current Warfarin Dosing As of 01/03/2022 Full warfarin instructions: 2.5 mg every day Sent [employer] message Advised patient to continue current weekly dose as noted above Next lab INR check scheduled on 01/17/2022 Senia Phillips RPh Clinical Pharmacist, Pharmacy Anticoagulation Clinic Pharmacy Anticoagulation Clinic Pager: [phone]. documented in this encounterAvita Health System [facility]10-14-2022 Miscellaneous Notes* Telephone Encounter - Marta Palacio Ma - 01/03/2022 10:49 AM EDT Pt notified of results via [employer]. Marta Palacio Ma * Telephone Encounter - Stas Mora MD - 01/02/2022 6:07 PM EDT Please notify patient that his thyroid ultrasound looks OK, the nodules are all small, appear normal, and do not need any further evaluation pr follow up. Stas Mora MD documented in this encounterAvita Health System [facility]10-06-2022 History of Present illness Narrative* Stas Mora MD - 12/26/2021 11:20 AM EDT Chief Complaint Patient presents with: Hospital F/U [facility] Roby Flores is a 86 year old [...] about 1-2 hours. Pt was admitted to [facility] ER 12/21/21 with stroke sx however [...] in the last year. [facility] of Present Illness Chief Complaint: [...] extremities. He has 5 out of 5 powder blender and pourer strength bilaterally. Dorsi and plantar flexion intact. [...] Chronic anticoagulation: Status: Acute Code(s): Z79.01 - snf (current) 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 Medications at Discharge [...] symptoms resolved. Hospital Course: 1. TIA/paroxysmal A. [id number]old male presented with right-sided weakness and aphasia, [...] Coronary atherosclerosis of unspecified type of vessel, [place] or graft Coronary artery disease Other and [...] 12/06/2024 ADVANCE DIRECTIVE DISCUSSION Completed Data reviewed [facility] reports from 10/21/21-10/22/21 ASSESSMENT/PLAN: 1. Hospital [...] unspecified vessel or lesion type, unspecified whether [place] or transplanted heart - ICD9: 414.00, ICD10: I25.10 Continue current medications. Follow up in Dec as scheduled with fasting labs prior. I agree with the Chief Complaint, ROS, and Past Histories independently gathered by the clinical product support representative and the remaining scribed note accurately describes [...] AM. Marta Palacio Ma documented in this encounterAvita Health System [facility]09-30-2022 Miscellaneous Notes* Telephone Encounter - Senia Phillips [facility] - 12/20/2021 4:39 PM EDT [facility] Amb[facility] Anticoagulation Clinic Anticoagulation Episode Summary Anticoagulation Care Providers Provider Role Specialty Phone number Stas Mora MD Referring Family Medicine [phone] Roby Flores is a 86 year old year old male patient being evaluated today for a Telemanagement visit. Patient is currently on the following anticoagulant(s) Warfarin. Labs PT INR (no units) Date Value 05/15/2021 2.3 04/17/2021 1.9 03/13/2021 Test sent to [facility]. INR (no units) Date Value 12/20/2021 [...] ALLERGIES No Known Allergies Indication for Warfarin: 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 Paroxysmal atrial fibrillation (hcc) Anticoagulation Episode Summary Current INR goal: 2.0-3.0 Assessment: INR result of 2.1 is therapeutic Plan: Current Warfarin Dosing As of 12/20/2021 Full warfarin instructions: 2.5 mg every day Sent [employer] message Advised patient to continue current weekly dose as noted above Next lab INR check scheduled on 01/03/2022 Senia Phillips RPh Clinical Pharmacist, Pharmacy Anticoagulation Clinic Pharmacy Anticoagulation Clinic Pager: [phone]. documented in this encounterAvita Health System [facility]09-16-2022 Miscellaneous Notes* Telephone Encounter - Senia Phillips RPh - 12/06/2021 4:29 PM EDT [facility] Amb[facility] Anticoagulation Clinic Anticoagulation Episode Summary Anticoagulation Care Providers Provider Role Specialty Phone number Stas Mora MD Referring [facility] [phone] Roby Flores is a 86 year old year old male patient being evaluated today for a Telemanagement visit. Patient is currently on the following anticoagulant(s) Warfarin. Labs PT INR (no units) Date Value 05/15/2021 2.3 04/17/2021 1.9 03/13/2021 Test sent to [facility]. INR (no units) Date Value 12/06/2021 [...] ALLERGIES No Known Allergies Indication for Warfarin: snf current use of anticoagulant Paroxysmal atrial fibrillation [...] Pharmacy Anticoagulation Clinic Pharmacy Anticoagulation Clinic Pager: [phone]. documented in this encounterAvita Health System [facility]09-02-2022 Miscellaneous Notes* Telephone Encounter - Janice Huang RPh - 11/22/2021 5:17 PM EDT [facility] Amb[facility] Anticoagulation Clinic Anticoagulation Episode Summary Anticoagulation Care Providers Provider Role Specialty Phone number Stas Mora MD Referring [facility] [phone] Roby Flores is a 86 year old year old male patient being evaluated today for a Telemanagement visit. Patient is currently on the following anticoagulant(s) Warfarin. Labs PT INR (no units) Date Value 05/15/2021 2.3 04/17/2021 1.9 03/13/2021 Test sent to [facility]. INR (no units) Date Value 11/22/2021 [...] ALLERGIES No Known Allergies Indication for Warfarin: snf current use of anticoagulant Paroxysmal atrial fibrillation [...] Advised pt to Call Coumadin Clinic at [phone] to confirm dosing and follow-up Janice Huang [facility] Clinical Pharmacist, Pharmacy Anticoagulation Clinic Pharmacy Anticoagulation Clinic Pager: [phone]. documented in this encounterAvita Health System [facility]08-19-2022 Miscellaneous Notes* Telephone Encounter - Senia Phillips RPh - 11/08/2021 5:01 PM EDT [facility] Amb[facility] Anticoagulation Clinic Anticoagulation Episode Summary Anticoagulation Care Providers Provider Role Specialty Phone number Stas Mora MD Referring [facility] [phone] Roby Flores is a 86 year old year old male patient being evaluated today for a Telemanagement visit. Patient is currently on the following anticoagulant(s) Warfarin. Labs PT INR (no units) Date Value 05/15/2021 2.3 04/17/2021 1.9 03/13/2021 Test sent to [facility]. INR (no units) Date Value 11/08/2021 [...] ALLERGIES No Known Allergies Indication for Warfarin: snf current use of anticoagulant Paroxysmal atrial fibrillation (hcc) Anticoagulation Episode Summary Current INR goal: 2.0-3.0 Assessment: INR result of 2.8 is therapeutic Plan: Current Warfarin Dosing As of 11/08/2021 Full warfarin instructions: 2.5 mg every day Sent [employer] message Advised patient to continue current weekly dose as noted above Next lab INR check scheduled on 11/22/2021 Senia Phillips RPh Clinical Pharmacist, Pharmacy Anticoagulation Clinic Pharmacy Anticoagulation Clinic Pager: [phone]. documented in this encounterAvita Health System [facility]08-05-2022 Miscellaneous Notes* Telephone Encounter - Janice Huang RPh - 10/25/2021 4:16 PM EDT [facility] Ambulatory [facility] Anticoagulation Clinic Anticoagulation Episode Summary Anticoagulation Care Providers Provider Role Specialty Phone number Stas Mora MD Referring Family Practice [phone] Roby Flores is a 86 year old year old male patient being evaluated today for a Telemanagement visit. Patient is currently on the following anticoagulant(s) Warfarin. Labs PT INR (no units) Date Value 05/15/2021 2.3 04/17/2021 1.9 03/13/2021 Test sent to [facility]. INR (no units) Date Value 10/25/2021 [...] ALLERGIES No Known Allergies Indication for Warfarin: snf current use of anticoagulant Paroxysmal atrial fibrillation [...] Pharmacy Anticoagulation Clinic Pharmacy Anticoagulation Clinic Pager: [phone] . documented in this encounterAvita Health System [facility]07-08-2022 Miscellaneous Notes* Telephone Encounter - Elana Campbell (Media Manager) - 09/27/2021 4:50 PM EDT PATIENT CALL Patient called call center regarding results. Patient called and stated he had his INR checked today (09/27) and it was 2.3. Patient can be called at [phone] with any questions or sent [facility] message if result is within range. PT INR (no units) Date Value 05/15/2021 2.3 04/17/2021 1.9 03/13/2021 Test sent to [facility]. INR (no units) Date Value 09/27/2021 2.3 09/13/2021 2.7 08/30/2021 2.1 Elana Campbell (Media Manager) * Telephone Encounter - Yomi Wills RPh - 09/27/2021 6:28 AM EDT Patient due to test INR today. Will continue to monitor for results. Yomi Wills RPh documented in this encounterAvita Health System Bu[facility]06-24-2022 Miscellaneous Notes* Telephone Encounter - Senia Phillips RPh - 09/13/2021 4:11 PM EDT [facility] Ambulatory [facility] Anticoagulation Clinic Anticoagulation Episode Summary Anticoagulation Care Providers Provider Role Specialty Phone number Stas Mora MD Referring [facility] [phone] Roby Flores is a 86 year old year old male patient being evaluated today for a Telemanagement visit. Patient is currently on the following anticoagulant(s) Warfarin. Labs PT INR (no units) Date Value 05/15/2021 2.3 04/17/2021 1.9 03/13/2021 Test sent to [facility]. INR (no units) Date Value 09/13/2021 [...] ALLERGIES No Known Allergies Indication for Warfarin: snf current use of anticoagulant Paroxysmal atrial fibrillation (hcc) Anticoagulation Episode Summary Current INR goal: 2.0-3.0 Assessment: INR result of 2.7 is therapeutic Plan: Sent [employer] message Advised patient to continue current weekly dose Next lab INR check scheduled on 09/27/2021 Senia Phillips RPh Clinical Pharmacist, Pharmacy Anticoagulation Clinic Pharmacy Anticoagulation Clinic Pager: [phone] . documented in this encounterAvita Health System [facility]06-16-2022 History of Present illness Narrative* Stas Mora MD - 09/05/2021 11:20 AM EDT Medical B eligibilty date 1999 Date of last exam 08/28/2020 PAST MEDICAL HISTORY Diagnosis Date Coronary atherosclerosis of unspecified type of vessel, [place] or graft Coronary artery disease Other and [...] [place] every [facility] [place]. Pt follows with [facility] Pharmacy for Coumadin management. Pt denies any other Specialist. End of Live Planning discussed including patients advanced directive wishes: Yes has both. Daughteris his POA. I am willing to follow [place] advanced directives. Depression screen He in the [...] to remember the following three words: Banana, [place] and Chair Visuospatial/Executive Functioning: Clock drawin/2 (Normal [...] Past Histories independently gathered by the clinical product support representative and the remaining scribed note accurately describes my personal service to the patient. Stas Mora MD The documentation for this note was completed by Rosie Cruz Ma acting as scribe for Stas Mora MD. September 05, 2021 11:33 AM. Rosie Cruz Ma documented in this encounterAvita Health System [facility]06-10-2022 Miscellaneous Notes* Telephone Encounter - Senia Phillips [facility] - 08/30/2021 5:10 PM EDT [facility] Ambulatory Pharmacy Anticoagulation Clinic Anticoagulation Episode Summary Anticoagulation Care Providers Provider Role Specialty Phone number Stas Mora MD Referring [facility] [phone] Roby Flores is a 86 year old year old male patient being evaluated today for a Telemanagement visit. Patient is currently on the following anticoagulant(s) Warfarin. Labs PT INR (no units) Date Value 05/15/2021 2.3 04/17/2021 1.9 03/13/2021 Test sent to [facility]. INR (no units) Date Value 08/30/2021 [...] ALLERGIES No Known Allergies Indication for Warfarin: snf current use of anticoagulant Paroxysmal atrial fibrillation (hcc) Anticoagulation Episode Summary Current INR goal: 2.0-3.0 Assessment: INR result of 2.1 is therapeutic Plan: Sent [employer] message Advised patient to continue current weekly dose Next lab INR check scheduled on 09/13/2021 Senia Phillips RPh Clinical Pharmacist, Pharmacy Anticoagulation Clinic Pharmacy Anticoagulation Clinic Pager: [phone] . documented in this encounterAvita Health System [facility]06-10-2022 Miscellaneous Notes* Telephone Encounter - Jenna Fitzpatrick APRN.CNP - 08/30/2021 8:56 AM EDT Needs order for PT/INR, order signed. Jenna Fitzpatrick APRN.CNP documented in this encounterAvita Health System Bu[facility]05-27-2022 Miscellaneous Notes* Telephone Encounter - Rosie Cruz Ma - 08/16/2021 2:18 PM EDT INR has been reviewed in another encounter. Rosie Cruz Ma documented in this encounterAvita Health System [facility]05-13-2022 Miscellaneous Notes* Telephone Encounter - Senia Phillips RPh - 08/02/2021 4:11 PM EDT [facility] Ambulatory Pharm[facility] Anticoagulation Clinic Anticoagulation Episode Summary Anticoagulation Care Providers Provider Role Specialty Phone number Stas Mora MD Referring [facility] [phone] Roby Flores is a 85 year old year old male patient being evaluated today for a Telemanagement visit. Patient is currently on the following anticoagulant(s) Warfarin. Labs PT INR (no units) Date Value 05/15/2021 2.3 04/17/2021 1.9 03/13/2021 Test sent to [facility]. INR (no units) Date Value 08/02/2021 [...] ALLERGIES No Known Allergies Indication for Warfarin: snf current use of anticoagulant Paroxysmal atrial fibrillation [...] Pharmacy Anticoagulation Clinic Pharmacy Anticoagulation Clinic Pager: [phone] . documented in this encounterAvita Health System [facility]04-27-2022 Miscellaneous Notes* Telephone Encounter - Rosie [...] months Stas Mora MD documented [facility] this encounter[facility] Miscellaneous Notes* Telephone Encounter - Elvis Kearney APRN.SHEMAR - 07/15/2021 12:39 PM EDT The following approved medication requests have been transmitted electronically. Pending Prescriptions Disp Refills WARFARIN 2.5 MG TABLET 135 tablet 3 Sig: TAKE 5 MG EVERY MON, DIXIE 2.5 MG ALL OTHER DAYS MESFIN: No Elvis Kearney APRN.GUEST ATTENDANT documented in this encounterAvita [facility]04-18-[facility]22 History of Present illness Narrative* Stas [...] SOB. No swelling in feet orankles. No insurance underwriting assistant. Taking Fosinopril 10 mg daily. Lipid: Taking [...] Coronary atherosclerosis of unspecified type of vessel, [place] or graft Coronary artery disease Other and [...] unspecified vessel or lesion type, unspecified whether [place] or transplanted heart - ICD9: 414.00, ICD10: [...] Past Histories independently gathered by the clinical product support representative and the remaining scribed note accurately describes [...] AM. Marta Palacio Ma documented in this encounterAv[facility]04-13-2022 Miscellaneous Notes* Telephone Encounter - Coretta Jalloh [facility] - 07/03/2021 3:40 PM EDT [facility] Clinic Anticoagulation Episode Summary Anticoagulation Care Providers Provider Role Specialty Phone number Stas Mora MD Referring [facility] [phone] Roby Flores is a 85 year old year old male patient being evaluated today for a Lab INR. Patient is currently on the following anticoagulant(s) Warfarin. Labs PT INR (no units) Date Value 05/15/2021 2.3 04/17/2021 1.9 03/13/2021 Test sent to [facility]. INR (no units) Date Value 07/03/2021 4.5 06/12/2021 3.5 Creatinine (mg/dL) Date Value 03/13/2021 0.80 08/28/2020 0.83 Bilirubin, Total (mg/dL) Date Value 03/13/2021 0.5 ALT (U/L) Date Value 03/13/2021 24 AST (U/L) Date Value 03/13/2021 24 CrCl cannot be calculated (Unknown ideal weight.). ALLERGIES No Known Allergies Indication for Warfarin: 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 Paroxysmal atrial fibrillation [...] Pharmacy Anticoagulation Clinic Pharmacy Anticoagulation Clinic Pager: [phone] . * Telephone Encounter - Marta Palacio Ma - 07/03/2021 3:05 PM EDT INR 4.5. Results routed to pharmacist who Handles pt coumadin. Marta Palacio Ma documented in this encounterAvita [facility]03-23-2022 Miscellaneous Notes* Telephone Encounter - Coretta Jalloh RPh - 06/12/2021 3:20 PM EDT [facility] Clinic Anticoagulation Episode Summary Anticoagulation Care Providers Provider Role Specialty Phone number Stas Mora MD Referring [facility] [phone] Roby Flores is a 85 year old year old male patient being evaluated today for a Lab INR. Patient is currently on the following anticoagulant(s) Warfarin. Labs PT INR (no units) Date Value 05/15/2021 2.3 04/17/2021 1.9 03/13/2021 Test sent to [facility]. INR (no units) Date Value 06/12/2021 3.5 Creatinine (mg/dL) Date Value 03/13/2021 0.80 08/28/2020 0.83 Bilirubin, Total (mg/dL) Date Value 03/13/2021 0.5 ALT (U/L) Date Value 03/13/2021 24 AST (U/L) Date Value 03/13/2021 24 CrCl cannot be calculated (Unknown ideal weight.). ALLERGIES No Known Allergies Indication for Warfarin: 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 Paroxysmal atrial fibrillation (hcc) Anticoagulation Episode Summary Current INR goal: 2.0-3.0 Assessment: INR result of 3.5 is SUPRAtherapeutic due to: No obvious cause Plan: Called and spoke to patient/caregiver Advised patient to hold 1 dose then continue current regimen Next lab INR check scheduled on 07/03 in [place]. Patient verbalizes understanding of the plan. Patient denies need for refills. Coretta Jalloh RPh Clinical Pharmacist, Pharmacy Anticoagulation Clinic Pharmacy Anticoagulation Clinic Pager: [phone] . * Telephone Encounter - Rosie Cruz Ma - 06/12/2021 3:08 PM EDT Pt's INR results have finalized. Routing to pharm to review and advise. Rosie Crzu Ma documented in this encounterAvita [facility]12-21-2020 History of Present illness Narrative* Ariel, Hussein A (Rt), Tech - 03/12/2020 5:00 PM EST Radiology Service [...] 12, 2020 5:01 PM documented in this encounterSaint [facility] ClinicDischarge summary Author Inderjit Gillespie [facility] Note Date/Time September 01, 2024 10:2 5am [facility] Medical Records Department [address] [place] [address] Emergency Department Summary 09/01/24 MR#: [id number] Acct: [id number] Name: ROBY FLORES Rep #:[id number] : [...] shoulders elbows and wrist. He has normal powder blender and pourer strength. Neurologically he is awake alert. Answering [...] 87.5 H Lymph % (Auto) 4.8 L George % (Auto) 5.7 Eos % (Auto) 1.2 [...] Clarity Clear Urine pH 8.0 Ur Specific [place] 1.010 Urine Protein 15 H Urine Glucose [...] No fracture or dislocation present. Reading Location: [facility] 09/01/24 09:05 IMPRESSION: Cerebral atrophy. Mucosal thickening of the ethmoid sinuses as well as opacification of the left maxillary sinus. Reading Location: [facility] Chest X-Ray 09/01/24 09:25 IMPRESSION: No acute abnormality is seen. Reading Location: [facility] Chest x-ray, 2 views, AP and [...] to thrive Disposition Disposition: Acute Care Hospital [facility] What to do if you have Problems For any increased pain, shortness of breath, bleeding, nausea or vomiting, chestpain, or any unexpected problems, contact your Primary Care Provider. Call [facility] ([phone]) or report to the closest Emergency Room. Call 911 if necessary. 09/01/24 1025 <Electronically signed by Inderijt Gillespie MD> Cosigner Signature (if applicable): CC: Dr. Stas Mora MD ~ Signed [facility] Work Phone: Evaluation + Plan note No data available for this section [facility] Evaluation note* Diagnosis snf current use of anticoagulant- Primary Long-term (current) 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 Paroxysmal atrial fibrillation (HCC) Atrial fibrillation documented in this encounter [facility]* Diagnosis snf current use of anticoagulant- Primary Long-term (current) 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 Paroxysmal atrial fibrillation (HCC) Atrial fibrillation documented in this encounter [facility]* Diagnosis Essential hypertension, benign- Primary Atherosclerosis 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, unspecified vessel or lesion type, unspecified whether [place] or transplanted heart Paroxysmal atrial fibrillation (HCC) Atrial fibrillation Primary osteoarthritis of both knees Primary localized osteoarthrosis, lower leg [facility]* Diagnosis Atherosclerosis 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, unspecified vessel or lesion type, unspecified whether [place] or transplanted heart- Primary Essential hypertension, benign documented in this encounter [facility] note* 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 Long-term (current) 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 Paroxysmal atrial fibrillation (HCC) Atrial fibrillation documented in this encounter [facility] note* Diagnosis Elevated INR- Primary Abnormal coagulation profile documented in this encounter [facility]* Diagnosis snf current use of anticoagulant- Primary Long-term (current) 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 Paroxysmal atrial fibrillation (HCC) Atrial fibrillation documented in this encounter [facility]* Diagnosis Encounter for Medicare annual wellness exam- Primary Routine general medical examination at a [facility] Paroxysmal atrial fibrillation (HCC) Atrial fibrillation Essential hypertension, benign documented in this encounter [facility]* Diagnosis snf current use of anticoagulant- Primary Long-term (current) 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 Encounter for monitoring Coumadin therapy Encounter for therapeutic drug monitoring documented in this encounter [facility] note* Diagnosis snf current use of anticoagulant- Primary Long-term (current) 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 Paroxysmal atrial fibrillation (HCC) Atrial fibrillation documented [facility] this encounter [facility]* Diagnosis snf current use of anticoagulant- Primary Long-term (current) 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 Paroxysmal atrial fibrillation (HCC) Atrial fibrillation [facility]* Diagnosis Onset Date Resolution Status Chronic anticoagulation acut e TIA (transient ischemic attack) acute CAD (coronary artery disease) [facility] Work Phone: Evaluation note* Diagnosis Onset Date Resolution Status Chronic anticoagulation acut e Stroke-like symptoms acute TIA (transient ischemic attack) acute CAD (coronary artery disease) [facility] Work Phone: Evaluation note* Diagnosis Hospital discharge follow-up- Primary Other follow-up examination Encounter for immunization Need for other specified prophylactic vaccination against single bacterial disease TIA (transient ischemic attack) Unspecified transient cerebral ischemia Thyroid nodule Nontoxic uninodular goiter Essential hypertension, benign Paroxysmal atrial fibrillation (HCC) Atrial fibrillation Atherosclerosis 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, unspecified vessel or lesion type, unspecified whether [place] or transplanted heart documented in this encounter [facility]* Diagnosis snf current use of anticoagulant- Primary Long-term (current) 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 Paroxysmal atrial fibrillation (HCC) Atrial fibrillation documented in this encounter [facility]* Diagnosis snf current use of anticoagulant- Primary Long-term (current) 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 Paroxysmal atrial fibrillation (HCC) Atrial fibrillation [facility]* Diagnosis snf current use of anticoagulant- Primary Long-term (current) 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 Paroxysmal atrial fibrillation (HCC) Atrial fibrillation [facility]* Diagnosis Encounter for Medicare annual wellness exam- Primary Routine general medical examination at a [facility] Paroxysmal atrial fibrillation (HCC) Atrial fibrillation Essential hypertension, benign Hyperlipidemia, unspecified hyperlipidemia type documented in this encounter [facility]* Diagnosis snf current use of anticoagulant- Primary Long-term (current) 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 Paroxysmal atrial fibrillation (HCC) Atrial fibrillation [facility]* 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 Long-term (current) 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 Paroxysmal atrial fibrillation (HCC) Atrial fibrillation [facility]* Diagnosis snf current use of anticoagulant- Primary Long-term (current) 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 Paroxysmal atrial fibrillation (HCC) Atrial fibrillation [facility]* Diagnosis snf current use of anticoagulant- Primary Long-term (current) 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 Paroxysmal atrial fibrillation (HCC) Atrial fibrillation [facility] encounter [facility] noteNo assessment information availableWGrant Hospital Work Phone: Evaluation note* 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 Long-term (current) 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 Paroxysmal atrial fibrillation (HCC) Atrial fibrillation documented in this encounter [facility]* Diagnosis Cerebral infarction, unspecified mechanism (HCC)- Primary Generalized weakness Other malaise and fatigue Speech disturbance, unspecified type Hyperlipidemia, unspecified hyperlipidemia type Essential hypertension, benign Paroxysmal atrial fibrillation (HCC) Atrial fibrillation documented in this encounter [facility]* Diagnosis Cerebral infarction, unspecified mechanism (HCC) documented in this encounter [facility]* 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 Long-term (current) 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 Paroxysmal atrial fibrillation (HCC) Atrial fibrillation documented in this encounter [facility]* Diagnosis Essential hypertension, benign- Primary Paroxysmal atrial fibrillation (HCC) Atrial fibrillation Atherosclerosis 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, unspecified vessel or lesion type, unspecified whether [place] or transplanted heart Hyperlipidemia, unspecified hyperlipidemia type History of stroke with 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 Speech disturbance, unspecified type documented in this encounter [facility]* Diagnosis Abnormal CBC- Primary Other abnormal blood chemistry documented [facility] this encounter [facility]* 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 Long-term (current) 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 Paroxysmal atrial fibrillation (HCC) Atrial fibrillation documented [facility] this encounter [facility]* Diagnosis snf current use of anticoagulant- Primary Long-term (current) 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 Paroxysmal atrial fibrillation (HCC) Atrial fibrillation documented [facility] this [facility]* 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 Long-term (current) 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 Paroxysmal atrial fibrillation (HCC) Atrial fibrillation documented [facility] this encounter [facility]* Diagnosis snf current use of anticoagulant- Primary Long-term (current) 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 Paroxysmal atrial fibrillation (HCC) Atrial fibrillation documented in this encounter [facility]* Diagnosis 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, psychotic disturbance, mood disturbance, or anxiety (HCC)- Primary Essential hypertension, benign Paroxysmal atrial fibrillation (HCC) Atrial fibrillation documented in this encounter [facility]* Diagnosis Edema of both lower legs- Primary [facility]* 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 Long-term (current) 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 Paroxysmal atrial fibrillation (HCC) Atrial fibrillation [facility]* Diagnosis snf current use of anticoagulant Long-term (current) 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 Paroxysmal atrial fibrillation (HCC) Atrial fibrillation [facility] this encounter [facility]* Diagnosis Essential hypertension, benign- Primary Hyperlipidemia, unspecified hyperlipidemia type Edema of both lower legs Paroxysmal atrial fibrillation (HCC) Atrial fibrillation History of stroke with 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, psychotic disturbance, mood disturbance, or anxiety (HCC) Urinary frequency Abnormal CBC Other abnormal blood chemistry [facility]* 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 Long-term (current) 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 Paroxysmal atrial fibrillation (HCC) Atrial fibrillation documented [facility] this encounter [facility]* Diagnosis snf current use of anticoagulant- Primary Long-term (current) 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 Paroxysmal atrial fibrillation (HCC) Atrial fibrillation documented in this encounter [facility]* Diagnosis Left hip pain Pain in joint, pelvic region and thigh documented in this encounter [facility]* 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 Long-term (current) 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 Paroxysmal atrial fibrillation (HCC) Atrial fibrillation documented [facility] this encounter [facility]* Diagnosis Acute right-sided low back pain, unspecified whether sciatica present documented in this encounter [facility]* Diagnosis Paroxysmal atrial fibrillation (HCC)- Primary Atrial fibrillation documented in this [facility]* 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 Long-term (current) 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 Paroxysmal atrial fibrillation (HCC) Atrial fibrillation documented in this encounter [facility]* Diagnosis snf current use of anticoagulant- Primary Long-term (current) 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 Paroxysmal atrial fibrillation (HCC) Atrial fibrillation documented [facility] this encounter [facility]* Diagnosis Dementia, unspecified dementia severity, unspecified dementia type, unspecified whether behavioral, psychotic, or mood disturbance or anxiety (HCC)- Primary documented in this encounter [facility]* 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 Long-term (current) 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 Paroxysmal atrial fibrillation (HCC) Atrial fibrillation [facility] this encounter [facility]* Diagnosis Dementia, unspecified dementia severity, unspecified [...] and musculoskeletal systems documented in this encounter [facility]* Diagnosis Cognitive impairment, mild, so stated Mild cognitive impairment, so stated [facility]* Diagnosis Essential hypertension, benign- Primary Hyperlipidemia, unspecified hyperlipidemia type Atherosclerosis 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, unspecified vessel or lesion type, unspecified whether [place] or transplanted heart Paroxysmal atrial fibrillation (HCC) Atrial fibrillation Edema of both lower legs History of stroke with 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 Dementia, unspecified dementia severity, unspecified dementia type, unspecified whether behavioral, psychotic, or mood disturbance or anxiety (HCC) documented in this encounter [facility]* 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 for referral (narrative)* Diagnostic Procedure Only (Routine) - Authorized Specialty Diagnoses / Procedures Referred By Contac t Referred To Contact US IMAGING Diagnoses Thyroid nodule Procedures US THYROID/PARATHYROID US SOFT TISSUE HEAD & NECK REAL TIME IMGE Stas Queen MD [address] [place] [address] Us Imaging Referral ID Status Reason Start Date Expiration Date Visits Requested Visits Authorized [id number] Authorized Auto-Generat ed Referral 12/26/2021 01/25/20[address] [facility] for referral (narrative)* Diagnostic Procedure Only (Urgent) - Closed Specialty Diagnoses / Procedures Referred By Contac t Referred To Contact XR IMAGING Diagnoses Left hip pain Procedures XR HIP GENERAL 3V PELV/AP/LAT LEFT RADEX HIP UNILATERAL WITH PELVIS 2-3 VIEWS Jenna Fitzpatrick, DANYELLE [address] [place] [address] [place] [address] Referral ID Status Reason Start Date Expiration Date V isits Requested Visits Authorized [id number] Closed Auto-Generate d Referral 05/21/2022 06/20/2023 [address] [facility] for referral (narrative)No reason for referral information availableWGrant Hospital Work Phone: Reason for visit Narrative* Diagnostic Procedure Only (Urgent) - Closed Specialty Diagnoses / Procedures Referred By Contac t Referred To Contact XR IMAGING Diagnoses Left hip pain Procedures XR HIP GENERAL 3V PELV/AP/LAT LEFT RADEX HIP UNILATERAL WITH PELVIS 2-3 VIEWS Jenna Fitzpatrick, JETHRO.GUEST ATTENDANT [address] [place] [address] [place] [address] Referral ID Status Reason Start Date Expiration Date V isits Requested Visits Authorized [id number] Closed Auto-Generate d Referral 05/21/2022 06/20/2023 [address] [facility] for visit Narrative* MRI/CT (Routine) - Closed Specialty Diagnoses / Procedures Referred By Contaron t Referred To Contact MR IMAGING Diagnoses Cognitive impairment, mild, so stated Procedures MRI BRAIN W QUANT WO IVCON MRI BRAIN BRAIN STEM W/O CONTRAST MATERIAL Luciana Cisneros MD [address] [place] [address] Phone: tel: fax: [place] [id number] Referral ID Status Reason Start Date Expiration Date V isits Requested Visits Authorized [id number] Closed Auto-Generate d Referral 05/11/2024 07/10/2024 1 1 [facility] Summary Purpose Family History Relationship Condition Age at Onset Recorded Date/T eva Unknown Family History?No pertinent history Unkno wn September 08, 2016 1:12pm Family History?No pertinent history Unkno wn September 08, 2016 1:12pm Relationship Condition Age at Onset Recorded Date/T eva Not Specified Alcoholism Unknown Advance Directives Advance Directive Response Recorded Date/ Time Living Will Yes December 21 6:17pm Power of Exhaust Emissions Inspector Yes December 21 6:17pm Name of Medical Power of Exhaust Emissions Inspector IRAJ HULL , DAUGHTER December 21, 2021 6:17pm Advance Directive Response Recorded Date/ Time Name of Medical Power of Exhaust Emissions Inspector Anabella Hull December 21, 2021 8:06pm Living Will Yes December 21 8:06pm Power of Exhaust Emissions Inspector Yes December 21 8:06pm Advance Directive Response Recorded Date/ Time Living Will Yes February 10, 023 3:17pm Power of Exhaust Emissions Inspector Yes February 10, 2023 3:17pm Name of Medical Power of Exhaust Emissions Inspector daughter-yomi hull February 10, 2023 3:17pm Advance Directive Response Recorded Date/ Time Do you have a Healthcare Power of Exhaust Emissions Inspector? Yes September 01, 2024 7:36am Name of Medical Power of Exhaust Emissions Inspector anabella hull September 01, 2024 7:36am Advance Directive Response Recorded Date/ Time Do you have a Healthcare Power of Exhaust Emissions Inspector? Yes September 01, 2024 12:00pm Name of Medical Power of Exhaust Emissions Inspector anabella hull September 01, 2024 12:00pm Chief [...] to ambulate September 02, 2024 12:4 9pm Chief Complaint Admit Date DEBILITY, MECHANICAL FALL September 01 10:24am DEBILITY, MECHANICAL FALL September 02 12:49pm DEBILITY, MECHANICAL FALL September 02 2:04pm DEBILITY, MECHANICAL FALL September 03 11:35am DEBILITY, MECHANICAL FALL September 04 2:12pm DEBILITY, MECHANICAL FALL September 05 4:08pm DEBILITY, MECHANICAL FALL September 06 10:03am LAB WORK September 07, 2024 4:00 am ADMISSION AND HISTORY & PHYSICAL September 072024 6:15pm LAB WORK September 08, 2024 5:00 am LAB WORK September 12, 2024 5:00 am LABWORK September 14, 2024 5:00 am LAB WORK September 15, 2024 6:10 am LAB WORK September 19, 2024 5:00 am LABWORK September 21, 2024 5:00a m LABWORK September 23, 2024 10:59 am LABWORK September 26, 2024 5:00a m Reason for Visit Admit Date Chronic anticoagulation September 02, 2024 12:49pm Contusion of hip September 02, 2024 12:4 9pm Fall September 02, 2024 12:4 9pm History of atrial fibrillation August 12:49pm History of TIAs September 02, 2024 12:4 9pm Unable to ambulate September 02, 2024 12:4 9pm Adult failure to thrive September 02, 2024 12:49pm History of dementia September 02, 2024 12:4 9pm Chief Complaint Admit Date DEBILITY, MECHANICAL FALL September 01 10:24am DEBILITY, MECHANICAL FALL September 02 12:49pm DEBILITY, MECHANICAL FALL September 02 2:04pm DEBILITY, MECHANICAL FALL September 03 11:35am DEBILITY, MECHANICAL FALL September 04 2:12pm DEBILITY, MECHANICAL FALL September 05 4:08pm DEBILITY, MECHANICAL FALL September 06 10:03am LAB WORK September 07, 2024 4:00 am ADMISSION AND HISTORY & PHYSICAL September 072024 6:15pm LAB WORK September 08, 2024 5:00 am NEW CONCERN September 08, 2024 4:30 pm LAB WORK September 12, 2024 5:00 am LABWORK September 14, 2024 5:00 am LAB WORK September 15, 2024 6:10 am LAB WORK September 19, 2024 5:00 am LABWORK September 21, 2024 5:00a m LABWORK September 23, 2024 10:59 am LABWORK September 26, 2024 5:00a m Chief Complaint Admit Date DEBILITY, MECHANICAL FALL September 01 10:24am DEBILITY, MECHANICAL FALL September 02 12:49pm DEBILITY, MECHANICAL FALL September 02 2:04pm DEBILITY, MECHANICAL FALL September 03 11:35am DEBILITY, MECHANICAL FALL September 04 2:12pm DEBILITY, MECHANICAL FALL September 05 4:08pm DEBILITY, MECHANICAL FALL September 06 10:03am LAB WORK September 07, 2024 4:00 am ADMISSION AND HISTORY & PHYSICAL September 072024 6:15pm LAB WORK September 08, 2024 5:00 am NEW CONCERN September 08, 2024 4:30 pm LAB WORK September 12, 2024 5:00 am LABWORK September 14, 2024 5:00 am LAB WORK September 15, 2024 6:10 am LAB WORK September 19, 2024 5:00 am LABWORK September 21, 2024 5:00a m LABWORK September 23, 2024 10:59 am LABWORK September 26, 2024 5:00a m LAB WORK September 28, 2024 5:00a m ASSISTED LAB WORK September 29, 2024 5: 00am Admission H&P Exam September 30, 2024 5:50 pm ASSISTED LAB WORK October 05, 2024 5: 00am ASSISTED LAB WORK October 06, 2024 5: 00am Chief Complaint Admit Date DEBILITY, MECHANICAL FALL September 01 10:24am DEBILITY, MECHANICAL FALL September 02 12:49pm DEBILITY, MECHANICAL FALL September 02 2:04pm DEBILITY, MECHANICAL FALL September 03 11:35am DEBILITY, MECHANICAL FALL September 04 2:12pm DEBILITY, MECHANICAL FALL September 05 4:08pm DEBILITY, MECHANICAL FALL September 06 10:03am LAB WORK September 07, 2024 4:00 am ADMISSION AND HISTORY & PHYSICAL September 072024 6:15pm LAB WORK September 08, 2024 5:00 am NEW CONCERN September 08, 2024 4:30 pm LAB WORK September 12, 2024 5:00 am LABWORK September 14, 2024 5:00 am LAB WORK September 15, 2024 6:10 am LAB WORK September 19, 2024 5:00 am LABWORK September 21, 2024 5:00a m LABWORK September 23, 2024 10:59 am LABWORK September 26, 2024 5:00a m LAB WORK September 28, 2024 5:00a m ASSISTED LAB WORK September 29, 2024 5: 00am Admission H&P Exam September 30, 2024 5:50 pm ASSISTED LAB WORK October 05, 2024 5: 00am ASSISTED LAB WORK October 06, 2024 5: 00am New Concern October 20, 2024 2:54 pm Reason for Referral Specialty Diagnoses / Procedures Referred By Jennifer gomez Referred To Contact [facility] Diagnoses Shuffling gait Ambulatory dysfunction Balance disorder Procedures CONSULT TO PHYSICAL THERAPY PHYSICAL THERAPY EVALUATION HIGH COMPLEX 45 MINS Luciana Cisneros MD [address] [place] [id number] [facility] [place] [address] [place] [id number] Referral ID Status Reason Start Date Expiration Date Visits Requested Visits Authorized [id number] Pending Review Auto-Generat ed Referral 04/27/2024 04/27/2025 1 1 Specialty Diagnoses / Procedures Referred By Jennifer gomez Referred To Contact MR IMAGING Diagnoses Cognitive impairment, mild, so stated Procedures MRI BRAIN W QUANT WO IVCON MRI BRAIN BRAIN STEM W/O CONTRAST MATERIAL Luciana Cisneros MD [address] [place] [id number] [place] [id number] Referral ID Status Reason Start Date Expiration Date Visits Requested Visits Authorized [id number] Pending Review Auto-Generat ed Referral 04/27/2024 05/27/2025 1 1 Specialty Diagnoses / Procedures Referred By Jennifer gomez Referred To Contact Gerontology Diagnoses Dementia, unspecified dementia severity, unspecified dementia type, unspecified whether behavioral, psychotic, or mood disturbance or anxiety (HCC) Procedures CONSULT TO GERIATRICS OFFICE/OUTPATIENT [facility] MDM 60 MINUTES Stas Mora MD [address] [place] [address] Referral ID Status Reason Start Date Expiration Date Visits Requested Visits Authorized [id number] Authorized PCP Requested Referral 04/25/2024 04/25/2025 1 1 Specialty Diagnoses / Procedures Referred By Contac t Referred To Contact MR IMAGING Diagnoses Cerebral infarction, unspecified mechanism (HCC) Procedures MRI BRAIN WO IVCON MRI BRAIN BRAIN STEM W/O CONTRAST MATERIAL Stas Mora MD [address] [place] [address] [place] [id number] Referral ID Status Reason Start Date Expiration Date Visits Requested Visits Authorized [id number] Pending Review Auto-Genera eli Referral Patient Cleared - Admin/Chair man/Directo r advise to proceed or did not respond 3 03/17/2024 1 1 Additional Source Comments (unrecognized sect ion and content) No Status Records FoundNo Status Records FoundNo Status Records FoundNo Status Records FoundNo Status Records FoundNo Status Records FoundNo Status Records Found INFORMATION SOURCE (unrecogn ized section and content) DATE CREATED AUTHOR 09/11/2017 [facility] DATE CREATED AUTHOR AUTHOR'S ORGANIZ ATION 09/11/2017 [facility] DATE CREATED AUTHOR AUTHOR'S ORGANIZ ATION 09/15/2017 [facility] DATE CREATED AUTHOR AUTHOR'S ORGANIZ ATION 08/12/2023 [facility] ([place]) DATE CREATED AUTHOR AUTHOR'S ORGANIZ ATION 05/24/2024 [facility] nt DATE CREATED AUTHOR AUTHOR'S ORGANIZ ATION 10/30/2024 [facility] DATE CREATED AUTHOR AUTHOR'S ORGANIZ ATION 10/31/2024 [facility] Source Comments (unrecognize d section and content) In the event this informatio n is protected by the Federal Confidentiality of Alcohol and Drug Abuse Patient Records regulations: The Federal rules restrict any use of the information to criminally investigate or prosecute any alcohol or drug abuse patient.[facility] the event this information is protected by the Federal Confidentiality of Alcohol and Drug Abuse Patient Records regulations: The Federal rules restrict any use of the information to criminally investigate or prosecute any alcohol or drug abuse patient.[facility] HospitalIn the event this information is protected by the Federal Confidentiality of Alcohol and Drug Abuse Patient Records regulations: The Federal rules restrict any use of the information to criminally investigate or prosecute any alcohol or drug abuse patient.[facility] HospitalIn the event this information is protected by the Federal Confidentiality of Alcohol and Drug Abuse Patient Records regulations: The Federal rules restrict any use of the information to criminally investigate or prosecute any alcohol or drug abuse patient.[facility] HospitalIn the event this information is protected by the Federal Confidentiality of Alcohol and Drug Abuse Patient Records regulations: The Federal rules restrict any use of the information to criminally investigate or prosecute any alcohol or drug abuse patient.[facility] HospitalIn the event this information is protected by the Federal Confidentiality of Alcohol and Drug Abuse Patient Records regulations: The Federal rules restrict any use of the information to criminally investigate or prosecute any alcohol or drug abuse patient.[facility] HospitalIn the event this information is protected by the Federal Confidentiality of Alcohol and Drug Abuse Patient Records regulations: The Federal rules restrict any use of the information to criminally investigate or prosecute any alcohol or drug abuse patient.[facility] HospitalIn the event this information is protected by the Federal Confidentiality of Alcohol and Drug Abuse Patient Records regulations: The Federal rules restrict any use of the information to criminally investigate or prosecute any alcohol or drug abuse patient.[facility] HospitalIn the event this information is protected by the Federal Confidentiality of Alcohol and Drug Abuse Patient Records regulations: The Federal rules restrict any use of the information to criminally investigate or prosecute any alcohol or drug abuse patient.[facility] HospitalIn the event this information is protected by the Federal Confidentiality of Alcohol and Drug Abuse Patient Records regulations: The Federal rules restrict any use of the information to criminally investigate or prosecute any alcohol or drug abuse patient.[facility] HospitalIn the event this information is protected by the Federal Confidentiality of Alcohol and Drug Abuse Patient Records regulations: The Federal rules restrict any use of the information to criminally investigate or prosecute any alcohol or drug abuse patient.[facility] HospitalIn the event this information is protected by the Federal Confidentiality of Alcohol and Drug Abuse Patient Records regulations: The Federal rules restrict any use of the information to criminally investigate or prosecute any alcohol or drug abuse patient.[facility] HospitalIn the event this information is protected by the Federal Confidentiality of Alcohol and Drug Abuse Patient Records regulations: The Federal rules restrict any use of the information to criminally investigate or prosecute any alcohol or drug abuse patient.[facility] HospitalIn the event this information is protected by the Federal Confidentiality of Alcohol and Drug Abuse Patient Records regulations: The Federal rules restrict any use of the information to criminally investigate or prosecute any alcohol or drug abuse patient.[facility] HospitalIn the event this information is protected by the Federal Confidentiality of Alcohol and Drug Abuse Patient Records regulations: The Federal rules restrict any use of the information to criminally investigate or prosecute any alcohol or drug abuse patient.[facility] HospitalIn the event this information is protected by the Federal Confidentiality of Alcohol and Drug Abuse Patient Records regulations: The Federal rules restrict any use of the information to criminally investigate or prosecute any alcohol or drug abuse patient.[facility] HospitalIn the event this information is protected by the Federal Confidentiality of Alcohol and Drug Abuse Patient Records regulations: The Federal rules restrict any use of the information to criminally investigate or prosecute any alcohol or drug abuse patient.[facility] HospitalIn the event this information is protected by the Federal Confidentiality of Alcohol and Drug Abuse Patient Records regulations: The Federal rules restrict any use of the information to criminally investigate or prosecute any alcohol or drug abuse patient.[facility] HospitalIn the event this information is protected by the Federal Confidentiality of Alcohol and Drug Abuse Patient Records regulations: The Federal rules restrict any use of the information to criminally investigate or prosecute any alcohol or drug abuse patient.[facility] HospitalIn the event this information is protected by the Federal Confidentiality of Alcohol and Drug Abuse Patient Records regulations: The Federal rules restrict any use of the information to criminally investigate or prosecute any alcohol or drug abuse patient.[facility] HospitalIn the event this information is protected by the Federal Confidentiality of Alcohol and Drug Abuse Patient Records regulations: The Federal rules restrict any use of the information to criminally investigate or prosecute any alcohol or drug abuse patient.[facility] HospitalIn the event this information is protected by the Federal Confidentiality of Alcohol and Drug Abuse Patient Records regulations: The Federal rules restrict any use of the information to criminally investigate or prosecute any alcohol or drug abuse patient.[facility] HospitalIn the event this information is protected by the Federal Confidentiality of Alcohol and Drug Abuse Patient Records regulations: The Federal rules restrict any use of the information to criminally investigate or prosecute any alcohol or drug abuse patient.[facility] HospitalIn the event this information is protected by the Federal Confidentiality of Alcohol and Drug Abuse Patient Records regulations: The Federal rules restrict any use of the information to criminally investigate or prosecute any alcohol or drug abuse patient.[facility] HospitalIn the event this information is protected by the Federal Confidentiality of Alcohol and Drug Abuse Patient Records regulations: The Federal rules restrict any use of the information to criminally investigate or prosecute any alcohol or drug abuse patient.[facility] HospitalIn the event this information is protected by the Federal Confidentiality of Alcohol and Drug Abuse Patient Records regulations: The Federal rules restrict any use of the information to criminally investigate or prosecute any alcohol or drug abuse patient.[facility] HospitalIn the event this information is protected by the Federal Confidentiality of Alcohol and Drug Abuse Patient Records regulations: The Federal rules restrict any use of the information to criminally investigate or prosecute any alcohol or drug abuse patient.[facility] HospitalIn the event this information is protected by the Federal Confidentiality of Alcohol and Drug Abuse Patient Records regulations: The Federal rules restrict any use of the information to criminally investigate or prosecute any alcohol or drug abuse patient.[facility] HospitalIn the event this information is protected by the Federal Confidentiality of Alcohol and Drug Abuse Patient Records regulations: The Federal rules restrict any use of the information to criminally investigate or prosecute any alcohol or drug abuse patient.[facility] HospitalIn the event this information is protected by the Federal Confidentiality of Alcohol and Drug Abuse Patient Records regulations: The Federal rules restrict any use of the information to criminally investigate or prosecute any alcohol or drug abuse patient.[facility] HospitalIn the event this information is protected by the Federal Confidentiality of Alcohol and Drug Abuse Patient Records regulations: The Federal rules restrict any use of the information to criminally investigate or prosecute any alcohol or drug abuse patient.[facility] HospitalIn the event this information is protected by the Federal Confidentiality of Alcohol and Drug Abuse Patient Records regulations: The Federal rules restrict any use of the information to criminally investigate or prosecute any alcohol or drug abuse patient.[facility] HospitalIn the event this information is protected by the Federal Confidentiality of Alcohol and Drug Abuse Patient Records regulations: The Federal rules restrict any use of the information to criminally investigate or prosecute any alcohol or drug abuse patient.[facility] HospitalIn the event this information is protected by the Federal Confidentiality of Alcohol and Drug Abuse Patient Records regulations: The Federal rules restrict any use of the information to criminally investigate or prosecute any alcohol or drug abuse patient.[facility] HospitalIn the event this information is protected by the Federal Confidentiality of Alcohol and Drug Abuse Patient Records regulations: The Federal rules restrict any use of the information to criminally investigate or prosecute any alcohol or drug abuse patient.[facility] HospitalIn the event this information is protected by the Federal Confidentiality of Alcohol and Drug Abuse Patient Records regulations: The Federal rules restrict any use of the information to criminally investigate or prosecute any alcohol or drug abuse patient.[facility] HospitalIn the event this information is protected by the Federal Confidentiality of Alcohol and Drug Abuse Patient Records regulations: The Federal rules restrict any use of the information to criminally investigate or prosecute any alcohol or drug abuse patient.[facility] HospitalIn the event this information is protected by the Federal Confidentiality of Alcohol and Drug Abuse Patient Records regulations: The Federal rules restrict any use of the information to criminally investigate or prosecute any alcohol or drug abuse patient.[facility] HospitalIn the event this information is protected by the Federal Confidentiality of Alcohol and Drug Abuse Patient Records regulations: The Federal rules restrict any use of the information to criminally investigate or prosecute any alcohol or drug abuse patient.[facility] HospitalIn the event this information is protected by the Federal Confidentiality of Alcohol and Drug Abuse Patient Records regulations: The Federal rules restrict any use of the information to criminally investigate or prosecute any alcohol or drug abuse patient.[facility] HospitalIn the event this information is protected by the Federal Confidentiality of Alcohol and Drug Abuse Patient Records regulations: The Federal rules restrict any use of the information to criminally investigate or prosecute any alcohol or drug abuse patient.[facility] HospitalIn the event this information is protected by the Federal Confidentiality of Alcohol and Drug Abuse Patient Records regulations: The Federal rules restrict any use of the information to criminally investigate or prosecute any alcohol or drug abuse patient.[facility] HospitalIn the event this information is protected by the Federal Confidentiality of Alcohol and Drug Abuse Patient Records regulations: The Federal rules restrict any use of the information to criminally investigate or prosecute any alcohol or drug abuse patient.[facility] HospitalIn the event this information is protected by the Federal Confidentiality of Alcohol and Drug Abuse Patient Records regulations: The Federal rules restrict any use of the information to criminally investigate or prosecute any alcohol or drug abuse patient.[facility] HospitalIn the event this information is protected by the Federal Confidentiality of Alcohol and Drug Abuse Patient Records regulations: The Federal rules restrict any use of the information to criminally investigate or prosecute any alcohol or drug abuse patient.[facility] HospitalIn the event this information is protected by the Federal Confidentiality of Alcohol and Drug Abuse Patient Records regulations: The Federal rules restrict any use of the information to criminally investigate or prosecute any alcohol or drug abuse patient.[facility] HospitalIn the event this information is protected by the Federal Confidentiality of Alcohol and Drug Abuse Patient Records regulations: The Federal rules restrict any use of the information to criminally investigate or prosecute any alcohol or drug abuse patient.[facility] HospitalIn the event this information is protected by the Federal Confidentiality of Alcohol and Drug Abuse Patient Records regulations: The Federal rules restrict any use of the information to criminally investigate or prosecute any alcohol or drug abuse patient.[facility] HospitalIn the event this information is protected by the Federal Confidentiality of Alcohol and Drug Abuse Patient Records regulations: The Federal rules restrict any use of the information to criminally investigate or prosecute any alcohol or drug abuse patient.[facility] HospitalIn the event this information is protected by the Federal Confidentiality of Alcohol and Drug Abuse Patient Records regulations: The Federal rules restrict any use of the information to criminally investigate or prosecute any alcohol or drug abuse patient.[facility] HospitalIn the event this information is protected by the Federal Confidentiality of Alcohol and Drug Abuse Patient Records regulations: The Federal rules restrict any use of the information to criminally investigate or prosecute any alcohol or drug abuse patient.[facility] HospitalIn the event this information is protected by the Federal Confidentiality of Alcohol and Drug Abuse Patient Records regulations: The Federal rules restrict any use of the information to criminally investigate or prosecute any alcohol or drug abuse patient.[facility] HospitalIn the event this information is protected by the Federal Confidentiality of Alcohol and Drug Abuse Patient Records regulations: The Federal rules restrict any use of the information to criminally investigate or prosecute any alcohol or drug abuse patient.[facility] HospitalIn the event this information is protected by the Federal Confidentiality of Alcohol and Drug Abuse Patient Records regulations: The Federal rules restrict any use of the information to criminally investigate or prosecute any alcohol or drug abuse patient.[facility] HospitalIn the event this information is protected by the Federal Confidentiality of Alcohol and Drug Abuse Patient Records regulations: The Federal rules restrict any use of the information to criminally investigate or prosecute any alcohol or drug abuse patient.[facility] HospitalIn the event this information is protected by the Federal Confidentiality of Alcohol and Drug Abuse Patient Records regulations: The Federal rules restrict any use of the information to criminally investigate or prosecute any alcohol or drug abuse patient.[facility] HospitalIn the event this information is protected by the Federal Confidentiality of Alcohol and Drug Abuse Patient Records regulations: The Federal rules restrict any use of the information to criminally investigate or prosecute any alcohol or drug abuse patient.[facility] HospitalIn the event this information is protected by the Federal Confidentiality of Alcohol and Drug Abuse Patient Records regulations: The Federal rules restrict any use of the information to criminally investigate or prosecute any alcohol or drug abuse patient.[facility] HospitalIn the event this information is protected by the Federal Confidentiality of Alcohol and Drug Abuse Patient Records regulations: The Federal rules restrict any use of the information to criminally investigate or prosecute any alcohol or drug abuse patient.[facility] HospitalIn the event this information is protected by the Federal Confidentiality of Alcohol and Drug Abuse Patient Records regulations: The Federal rules restrict any use of the information to criminally investigate or prosecute any alcohol or drug abuse patient.[facility] HospitalIn the event this information is protected by the Federal Confidentiality of Alcohol and Drug Abuse Patient Records regulations: The Federal rules restrict any use of the information to criminally investigate or prosecute any alcohol or drug abuse patient.[facility] HospitalIn the event this information is protected by the Federal Confidentiality of Alcohol and Drug Abuse Patient Records regulations: The Federal rules restrict any use of the information to criminally investigate or prosecute any alcohol or drug abuse patient.[facility] HospitalIn the event this information is protected by the Federal Confidentiality of Alcohol and Drug Abuse Patient Records regulations: The Federal rules restrict any use of the information to criminally investigate or prosecute any alcohol or drug abuse patient.[facility] HospitalIn the event this information is protected by the Federal Confidentiality of Alcohol and Drug Abuse Patient Records regulations: The Federal rules restrict any use of the information to criminally investigate or prosecute any alcohol or drug abuse patient.[facility] HospitalIn the event this information is protected by the Federal Confidentiality of Alcohol and Drug Abuse Patient Records regulations: The Federal rules restrict any use of the information to criminally investigate or prosecute any alcohol or drug abuse patient.[facility] HospitalIn the event this information is protected by the Federal Confidentiality of Alcohol and Drug Abuse Patient Records regulations: The Federal rules restrict any use of the information to criminally investigate or prosecute any alcohol or drug abuse patient.[facility] HospitalIn the event this information is protected by the Federal Confidentiality of Alcohol and Drug Abuse Patient Records regulations: The Federal rules restrict any use of the information to criminally investigate or prosecute any alcohol or drug abuse patient.[facility] HospitalIn the event this information is protected by the Federal Confidentiality of Alcohol and Drug Abuse Patient Records regulations: The Federal rules restrict any use of the information to criminally investigate or prosecute any alcohol or drug abuse patient.[facility] HospitalIn the event this information is protected by the Federal Confidentiality of Alcohol and Drug Abuse Patient Records regulations: The Federal rules restrict any use of the information to criminally investigate or prosecute any alcohol or drug abuse patient.[facility] HospitalIn the event this information is protected by the Federal Confidentiality of Alcohol and Drug Abuse Patient Records regulations: The Federal rules restrict any use of the information to criminally investigate or prosecute any alcohol or drug abuse patient.[facility] HospitalIn the event this information is protected by the Federal Confidentiality of Alcohol and Drug Abuse Patient Records regulations: The Federal rules restrict any use of the information to criminally investigate or prosecute any alcohol or drug abuse patient.[facility] HospitalIn the event this information is protected by the Federal Confidentiality of Alcohol and Drug Abuse Patient Records regulations: The Federal rules restrict any use of the information to criminally investigate or prosecute any alcohol or drug abuse patient.[facility] HospitalIn the event this information is protected by the Federal Confidentiality of Alcohol and Drug Abuse Patient Records regulations: The Federal rules restrict any use of the information to criminally investigate or prosecute any alcohol or drug abuse patient.[facility] HospitalIn the event this information is protected by the Federal Confidentiality of Alcohol and Drug Abuse Patient Records regulations: The Federal rules restrict any use of the information to criminally investigate or prosecute any alcohol or drug abuse patient.[facility] HospitalIn the event this information is protected by the Federal Confidentiality of Alcohol and Drug Abuse Patient Records regulations: The Federal rules restrict any use of the information to criminally investigate or prosecute any alcohol or drug abuse patient.[facility] HospitalIn the event this information is protected by the Federal Confidentiality of Alcohol and Drug Abuse Patient Records regulations: The Federal rules restrict any use of the information to criminally investigate or prosecute any alcohol or drug abuse patient.[facility] HospitalIn the event this information is protected by the Federal Confidentiality of Alcohol and Drug Abuse Patient Records regulations: The Federal rules restrict any use of the information to criminally investigate or prosecute any alcohol or drug abuse patient.[facility] HospitalIn the event this information is protected by the Federal Confidentiality of Alcohol and Drug Abuse Patient Records regulations: The Federal rules restrict any use of the information to criminally investigate or prosecute any alcohol or drug abuse patient.[facility] HospitalIn the event this information is protected by the Federal Confidentiality of Alcohol and Drug Abuse Patient Records regulations: The Federal rules restrict any use of the information to criminally investigate or prosecute any alcohol or drug abuse patient.[facility] HospitalIn the event this information is protected by the Federal Confidentiality of Alcohol and Drug Abuse Patient Records regulations: The Federal rules restrict any use of the information to criminally investigate or prosecute any alcohol or drug abuse patient.[facility] HospitalIn the event this information is protected by the Federal Confidentiality of Alcohol and Drug Abuse Patient Records regulations: The Federal rules restrict any use of the information to criminally investigate or prosecute any alcohol or drug abuse patient.[facility] HospitalIn the event this information is protected by the Federal Confidentiality of Alcohol and Drug Abuse Patient Records regulations: The Federal rules restrict any use of the information to criminally investigate or prosecute any alcohol or drug abuse patient.[facility] HospitalIn the event this information is protected by the Federal Confidentiality of Alcohol and Drug Abuse Patient Records regulations: The Federal rules restrict any use of the information to criminally investigate or prosecute any alcohol or drug abuse patient.[facility] HospitalIn the event this information is protected by the Federal Confidentiality of Alcohol and Drug Abuse Patient Records regulations: The Federal rules restrict any use of the information to criminally investigate or prosecute any alcohol or drug abuse patient.[facility] HospitalIn the event this information is protected by the Federal Confidentiality of Alcohol and Drug Abuse Patient Records regulations: The Federal rules restrict any use of the information to criminally investigate or prosecute any alcohol or drug abuse patient.[facility] HospitalIn the event this information is protected by the Federal Confidentiality of Alcohol and Drug Abuse Patient Records regulations: The Federal rules restrict any use of the information to criminally investigate or prosecute any alcohol or drug abuse patient.[facility] HospitalIn the event this information is protected by the Federal Confidentiality of Alcohol and Drug Abuse Patient Records regulations: The Federal rules restrict any use of the information to criminally investigate or prosecute any alcohol or drug abuse patient.[facility] HospitalIn the event this information is protected by the Federal Confidentiality of Alcohol and Drug Abuse Patient Records regulations: The Federal rules restrict any use of the information to criminally investigate or prosecute any alcohol or drug abuse patient.[facility] HospitalIn the event this information is protected by the Federal Confidentiality of Alcohol and Drug Abuse Patient Records regulations: The Federal rules restrict any use of the information to criminally investigate or prosecute any alcohol or drug abuse patient.[facility] HospitalIn the event this information is protected by the Federal Confidentiality of Alcohol and Drug Abuse Patient Records regulations: The Federal rules restrict any use of the information to criminally investigate or prosecute any alcohol or drug abuse patient.[facility] HospitalIn the event this information is protected by the Federal Confidentiality of Alcohol and Drug Abuse Patient Records regulations: The Federal rules restrict any use of the information to criminally investigate or prosecute any alcohol or drug abuse patient.[facility] HospitalIn the event this information is protected by the Federal Confidentiality of Alcohol and Drug Abuse Patient Records regulations: The Federal rules restrict any use of the information to criminally investigate or prosecute any alcohol or drug abuse patient.[facility] HospitalIn the event this information is protected by the Federal Confidentiality of Alcohol and Drug Abuse Patient Records regulations: The Federal rules restrict any use of the information to criminally investigate or prosecute any alcohol or drug abuse patient.[facility] HospitalIn the event this information is protected by the Federal Confidentiality of Alcohol and Drug Abuse Patient Records regulations: The Federal rules restrict any use of the information to criminally investigate or prosecute any alcohol or drug abuse patient.[facility] HospitalIn the event this information is protected by the Federal Confidentiality of Alcohol and Drug Abuse Patient Records regulations: The Federal rules restrict any use of the information to criminally investigate or prosecute any alcohol or drug abuse patient.[facility] HospitalIn the event this information is protected by the Federal Confidentiality of Alcohol and Drug Abuse Patient Records regulations: The Federal rules restrict any use of the information to criminally investigate or prosecute any alcohol or drug abuse patient.[facility] HospitalIn the event this information is protected by the Federal Confidentiality of Alcohol and Drug Abuse Patient Records regulations: The Federal rules restrict any use of the information to criminally investigate or prosecute any alcohol or drug abuse patient.[facility] HospitalIn the event this information is protected by the Federal Confidentiality of Alcohol and Drug Abuse Patient Records regulations: The Federal rules restrict any use of the information to criminally investigate or prosecute any alcohol or drug abuse patient.[facility] HospitalIn the event this information is protected by the Federal Confidentiality of Alcohol and Drug Abuse Patient Records regulations: The Federal rules restrict any use of the information to criminally investigate or prosecute any alcohol or drug abuse patient.[facility] HospitalIn the event this information is protected by the Federal Confidentiality of Alcohol and Drug Abuse Patient Records regulations: The Federal rules restrict any use of the information to criminally investigate or prosecute any alcohol or drug abuse patient.[facility] HospitalIn the event this information is protected by the Federal Confidentiality of Alcohol and Drug Abuse Patient Records regulations: The Federal rules restrict any use of the information to criminally investigate or prosecute any alcohol or drug abuse patient.[facility] HospitalIn the event this information is protected by the Federal Confidentiality of Alcohol and Drug Abuse Patient Records regulations: The Federal rules restrict any use of the information to criminally investigate or prosecute any alcohol or drug abuse patient.[facility] HospitalIn the event this information is protected by the Federal Confidentiality of Alcohol and Drug Abuse Patient Records regulations: The Federal rules restrict any use of the information to criminally investigate or prosecute any alcohol or drug abuse patient.[facility] HospitalIn the event this information is protected by the Federal Confidentiality of Alcohol and Drug Abuse Patient Records regulations: The Federal rules restrict any use of the information to criminally investigate or prosecute any alcohol or drug abuse patient.[facility] HospitalIn the event this information is protected by the Federal Confidentiality of Alcohol and Drug Abuse Patient Records regulations: The Federal rules restrict any use of the information to criminally investigate or prosecute any alcohol or drug abuse patient.[facility] HospitalIn the event this information is protected by the Federal Confidentiality of Alcohol and Drug Abuse Patient Records regulations: The Federal rules restrict any use of the information to criminally investigate or prosecute any alcohol or drug abuse patient.[facility] HospitalIn the event this information is protected by the Federal Confidentiality of Alcohol and Drug Abuse Patient Records regulations: The Federal rules restrict any use of the information to criminally investigate or prosecute any alcohol or drug abuse patient.[facility] HospitalIn the event this information is protected by the Federal Confidentiality of Alcohol and Drug Abuse Patient Records regulations: The Federal rules restrict any use of the information to criminally investigate or prosecute any alcohol or drug abuse patient.[facility] HospitalIn the event this information is protected by the Federal Confidentiality of Alcohol and Drug Abuse Patient Records regulations: The Federal rules restrict any use of the information to criminally investigate or prosecute any alcohol or drug abuse patient.[facility] HospitalIn the event this information is protected by the Federal Confidentiality of Alcohol and Drug Abuse Patient Records regulations: The Federal rules restrict any use of the information to criminally investigate or prosecute any alcohol or drug abuse patient.[facility] HospitalIn the event this information is protected by the Federal Confidentiality of Alcohol and Drug Abuse Patient Records regulations: The Federal rules restrict any use of the information to criminally investigate or prosecute any alcohol or drug abuse patient.[facility] HospitalIn the event this information is protected by the Federal Confidentiality of Alcohol and Drug Abuse Patient Records regulations: The Federal rules restrict any use of the information to criminally investigate or prosecute any alcohol or drug abuse patient.[facility] HospitalIn the event this information is protected by the Federal Confidentiality of Alcohol and Drug Abuse Patient Records regulations: The Federal rules restrict any use of the information to criminally investigate or prosecute any alcohol or drug abuse patient.[facility] HospitalIn the event this information is protected by the Federal Confidentiality of Alcohol and Drug Abuse Patient Records regulations: The Federal rules restrict any use of the information to criminally investigate or prosecute any alcohol or drug abuse patient.[facility] HospitalIn the event this information is protected by the Federal Confidentiality of Alcohol and Drug Abuse Patient Records regulations: The Federal rules restrict any use of the information to criminally investigate or prosecute any alcohol or drug abuse patient.[facility] HospitalIn the event this information is protected by the Federal Confidentiality of Alcohol and Drug Abuse Patient Records regulations: The Federal rules restrict any use of the information to criminally investigate or prosecute any alcohol or drug abuse patient.[facility] HospitalIn the event this information is protected by the Federal Confidentiality of Alcohol and Drug Abuse Patient Records regulations: The Federal rules restrict any use of the information to criminally investigate or prosecute any alcohol or drug abuse patient.[facility] HospitalIn the event this information is protected by the Federal Confidentiality of Alcohol and Drug Abuse Patient Records regulations: The Federal rules restrict any use of the information to criminally investigate or prosecute any alcohol or drug abuse patient.[facility] HospitalIn the event this information is protected by the Federal Confidentiality of Alcohol and Drug Abuse Patient Records regulations: The Federal rules restrict any use of the information to criminally investigate or prosecute any alcohol or drug abuse patient.[facility] HospitalIn the event this information is protected by the Federal Confidentiality of Alcohol and Drug Abuse Patient Records regulations: The Federal rules restrict any use of the information to criminally investigate or prosecute any alcohol or drug abuse patient.[facility] HospitalIn the event this information is protected by the Federal Confidentiality of Alcohol and Drug Abuse Patient Records regulations: The Federal rules restrict any use of the information to criminally investigate or prosecute any alcohol or drug abuse patient.[facility] HospitalIn the event this information is protected by the Federal Confidentiality of Alcohol and Drug Abuse Patient Records regulations: The Federal rules restrict any use of the information to criminally investigate or prosecute any alcohol or drug abuse patient.[facility] HospitalIn the event this information is protected by the Federal Confidentiality of Alcohol and Drug Abuse Patient Records regulations: The Federal rules restrict any use of the information to criminally investigate or prosecute any alcohol or drug abuse patient.[facility] HospitalIn the event this information is protected by the Federal Confidentiality of Alcohol and Drug Abuse Patient Records regulations: The Federal rules restrict any use of the information to criminally investigate or prosecute any alcohol or drug abuse patient.[facility] HospitalIn the event this information is protected by the Federal Confidentiality of Alcohol and Drug Abuse Patient Records regulations: The Federal rules restrict any use of the information to criminally investigate or prosecute any alcohol or drug abuse patient.[facility] HospitalIn the event this information is protected by the Federal Confidentiality of Alcohol and Drug Abuse Patient Records regulations: The Federal rules restrict any use of the information to criminally investigate or prosecute any alcohol or drug abuse patient.[facility] HospitalIn the event this information is protected by the Federal Confidentiality of Alcohol and Drug Abuse Patient Records regulations: The Federal rules restrict any use of the information to criminally investigate or prosecute any alcohol or drug abuse patient.[facility] HospitalIn the event this information is protected by the Federal Confidentiality of Alcohol and Drug Abuse Patient Records regulations: The Federal rules restrict any use of the information to criminally investigate or prosecute any alcohol or drug abuse patient.[facility] HospitalIn the event this information is protected by the Federal Confidentiality of Alcohol and Drug Abuse Patient Records regulations: The Federal rules restrict any use of the information to criminally investigate or prosecute any alcohol or drug abuse patient.[facility] HospitalIn the event this information is protected by the Federal Confidentiality of Alcohol and Drug Abuse Patient Records regulations: The Federal rules restrict any use of the information to criminally investigate or prosecute any alcohol or drug abuse patient.[facility] HospitalIn the event this information is protected by the Federal Confidentiality of Alcohol and Drug Abuse Patient Records regulations: The Federal rules restrict any use of the information to criminally investigate or prosecute any alcohol or drug abuse patient.[facility] HospitalIn the event this information is protected by the Federal Confidentiality of Alcohol and Drug Abuse Patient Records regulations: The Federal rules restrict any use of the information to criminally investigate or prosecute any alcohol or drug abuse patient.[facility] HospitalIn the event this information is protected by the Federal Confidentiality of Alcohol and Drug Abuse Patient Records regulations: The Federal rules restrict any use of the information to criminally investigate or prosecute any alcohol or drug abuse patient.[facility] HospitalIn the event this information is protected by the Federal Confidentiality of Alcohol and Drug Abuse Patient Records regulations: The Federal rules restrict any use of the information to criminally investigate or prosecute any alcohol or drug abuse patient.[facility] Reason for Visit (unrecogniz ed section [...] Specialty Diagnoses / Procedures Referred By Jennifer goemz Referred To Contact MR IMAGING Diagnoses Cerebral infarction, unspecified mechanism (HCC) Procedures MRI BRAIN WO IVCON MRI BRAIN BRAIN STEM W/O CONTRAST MATERIAL Stas Mora MD [address] [place] [address] [place] [id number] Referral ID Status Reason Start Date Expiration Date V isits Requested Visits Authorized [id number] Closed Auto-Generat ed Referral Patient Cleared - [...] Evaluation Specialty Diagnoses / Procedures Referred By Contac t Referred To Contact Gerontology Diagnoses Dementia, unspecified dementia severity, unspecified dementia type, unspecified whether behavioral, psychotic, or mood disturbance or anxiety ([facility]) Procedures CONSULT TO GERIATRICS OFFICE/OUTPATIENT [facility] 60 MINUTES Stas Mora MD [address] [place] [address] Referral ID Status Reason Start Date Expiration Date V isits Requested Visits Authorized [id number] Closed PCP Requested Referral 04/25/2024 04/25/2025 1 [...] Care Teams (unrecognized sec tion and content) Transit Vehicle Inspector Relationship Specialty Start Date End Date Stas Mora MD [address] [place], [place] [phone] PCP - General 08/02/08, Pharmacist [id number] [place] [address] Pharmacist Pharmacy 10/19/19 Transit Vehicle Inspector Relationship Specialty Start Date End Date Stas Mora MD [address] [place], [place] [id number] PCP - General 08/02/08, Pharmacist [id number] [place] [address] Pharmacist Pharmacy 10/19/19 Transit Vehicle Inspector Relationship Specialty Start Date End Date Stas Mora MD [address] [place] [address] PCP - General 08/02/08, Pharmacist [id number] [place] [address] Pharmacist Pharmacy 10/19/19 Transit Vehicle Inspector Relationship Specialty Start Date End Date Stas Mora MD [address] [place], [place] [address] PCP - General 08/02/08, Pharmacist [phone] [place] [address] Pharmacist Pharmacy 10/19/19 Transit Vehicle Inspector Relationship Specialty Start Date End Date Stas Mora MD [address] [place] [address] PCP - General 08/02/08, Pharmacist [id number] [place] [address], [place] [id number] Pharmacist Pharmacy 10/19/19 Transit Vehicle Inspector Relationship Specialty Start Date End Date Stas Mora MD [address] [place] [address] PCP - General 08/02/08, Pharmacist 34442 [place] [address] Pharmacist Pharmacy 10/19/19 Transit Vehicle Inspector Relationship Specialty Start Date End Date Stas Mora MD [address] [place] [address] PCP - General 08/02/08, Pharmacist 88565 [place] [address] Pharmacist Pharmacy 10/19/19 Transit Vehicle Inspector Relationship Specialty Start Date End Date Stas Mora MD [address] [place] [address] PCP - General 08/02/08, Pharmacist 17608 [place] [address] Pharmacist Pharmacy 10/19/19 Transit Vehicle Inspector Relationship Specialty Start Date End Date Stas Mora MD [address] [facility] [place] [address] PCP - General 08/02/08, Pharmacist [id number] [place] [address], [place] [id number] Pharmacist Pharmacy 10/19/19 Transit Vehicle Inspector Relationship Specialty Start Date End Date Stas Mora MD [address] [facility] [place] [address] PCP - General 08/02/08, Pharmacist [phone] [place] [address], [place] [id number] Pharmacist Pharmacy 10/19/19 Transit Vehicle Inspector Relationship Specialty Start Date End Date Stas Mora MD [address] [place] [address] PCP - General 08/02/08, Pharmacist [phone] [place] [address], [place] [id number] Pharmacist Pharmacy 10/19/19 Transit Vehicle Inspector Relationship Specialty Start Date End Date Stas Mora MD [address] [place] [address] PCP - General 08/02/08, Pharmacist [id number] [place] [address], [place] [id number] Pharmacist Pharmacy 10/19/19 Transit Vehicle Inspector Relationship Specialty Start Date End Date Stas Mora MD [address] [facility] [place] [address] PCP - General 08/02/08, Pharmacist 22557 [place] [address] Pharmacist Pharmacy 10/19/19 Transit Vehicle Inspector Relationship Specialty Start Date End Date Stas Mora MD [address] [facility] [place] [address] PCP - General 08/02/08, Pharmacist 13569 [place] [address] Pharmacist Pharmacy 10/19/19 Transit Vehicle Inspector Relationship Specialty Start Date End Date Stas Mora MD [address] [facility] [place] [address] PCP - General 08/02/08, Pharmacist 25044 [place] [address] Pharmacist Pharmacy 10/19/19 Transit Vehicle Inspector Relationship Specialty Start Date End Date Stas Mora MD [address] [facility] [place] [address] PCP - General 08/02/08, Pharmacist 05255 [place] [address] Pharmacist Pharmacy 10/19/19 Transit Vehicle Inspector Relationship Specialty Start Date End Date Stas Mora MD [address] [place] [address] PCP - General 08/02/08, Pharmacist 24434 [place] [address] Pharmacist Pharmacy 10/19/19 Transit Vehicle Inspector Relationship Specialty Start Date End Date Stas Mora MD [address] [facility] [place] [address] PCP - General 08/02/08, Pharmacist 40655 [place] [address] Pharmacist Pharmacy 10/19/19 Transit Vehicle Inspector Relationship Specialty Start Date End Date Stas Mora MD [address] [facility] [place] [address] PCP - General 08/02/08, Pharmacist 27509 [place] [address] Pharmacist Pharmacy 10/19/19 Transit Vehicle Inspector Relationship Specialty Start Date End Date Stas Mora MD [address] [facility] [place] [address] PCP - General 08/02/08, Pharmacist 24326 [place] [address] Pharmacist Pharmacy 10/19/19 Transit Vehicle Inspector Relationship Specialty Start Date End Date Stas Mora MD [address] [place] [address] PCP - General 08/02/08, Pharmacist [address] [place] [address] Pharmacist Pharmacy 10/19/19 Team Status: Active Member Role Status Dates Dr. Stas Mora MD Family Provider Active Dr. Stas Mora MD Primary Care Provider Active Team Status: Inactive Member Role Status Dates Dr. Stas Mora MD Primary Care Provider Active Dr. Brian Cunningham , Emergency Provider Active Transit Vehicle Inspector Relationship Specialty Start Date End Date Stas Mora MD [address] [place] [address] PCP - General 08/02/08, Pharmacist [address] [place] [address] Pharmacist Pharmacy 10/19/19 Transit Vehicle Inspector Relationship Specialty Start Date End Date Stas Mora MD [address] [place] [address] PCP - General 08/02/08, Pharmacist [address] [place] [address] Pharmacist Pharmacy 10/19/19 Transit Vehicle Inspector Relationship Specialty Start Date End Date Stas Mora MD [address] [place] [address] PCP - General 08/02/08, Pharmacist [address] [place] [address] Pharmacist Pharmacy 10/19/19 Transit Vehicle Inspector Relationship Specialty Start Date End Date Stas Mora MD [address] [facility] [place] [address] PCP - General 08/02/08, Pharmacist 23800 [place] [address] Pharmacist Pharmacy 10/19/19 Transit Vehicle Inspector Relationship Specialty Start Date End Date Stas Mora MD [address] [facility] [place] [address] PCP - General 08/02/08, Pharmacist [address]43 [place] [address] Pharmacist Pharmacy 10/19/19 Transit Vehicle Inspector Relationship Specialty Start Date End Date Stas Mora MD [address] [place] [address] PCP - General 08/02/08, Pharmacist 41239 [place] [address] Pharmacist Pharmacy 10/19/19 Transit Vehicle Inspector Relationship Specialty Start Date End Date Stas Mora MD [address] [place] [address] PCP - General 08/02/08, Pharmacist [phone] [place] [address] Pharmacist Pharmacy 10/19/19 Transit Vehicle Inspector Relationship Specialty Start Date End Date Stas Mora MD [address] [place] [address] PCP - General 08/02/08, Pharmacist 57613 [place] [address] Pharmacist Pharmacy 10/19/19 Transit Vehicle Inspector Relationship Specialty Start Date End Date Stas Mora MD [address] [place] [address] PCP - General 08/02/08, Pharmacist [address] [place] [address] Pharmacist Pharmacy 10/19/19 Transit Vehicle Inspector Relationship Specialty Start Date End Date Stas Mora MD [address] [place] [address] PCP - General 08/02/08, Pharmacist [address]138 [place] [address] Pharmacist Pharmacy 10/19/19 Transit Vehicle Inspector Relationship Specialty Start Date End Date Stas Mora MD [address] [place] [address] PCP - General 08/02/08, Pharmacist [phone] [place] [address] Pharmacist Pharmacy 10/19/19 Transit Vehicle Inspector Relationship Specialty Start Date End Date Stas Mora MD [address] [place] [address] PCP - General 08/02/08, Pharmacist [address]346 [place] [address] Pharmacist Pharmacy 10/19/19 Transit Vehicle Inspector Relationship Specialty Start Date End Date Stas Mora MD [address] [place] [address] PCP - General 08/02/08, Pharmacist [address] [place] [address] Pharmacist Pharmacy 10/19/19 Transit Vehicle Inspector Relationship Specialty Start Date End Date Stas Mora MD [address] [place] [address] PCP - General 08/02/08, Pharmacist [address] [place] [address] Pharmacist Pharmacy 10/19/19 Transit Vehicle Inspector Relationship Specialty Start Date End Date Stas Mora MD [address] [facility] [place] [address] PCP - General 08/02/08, Pharmacist [address]798 [place] [address] Pharmacist Pharmacy 10/19/19 Transit Vehicle Inspector Relationship Specialty Start Date End Date Stas Mora MD [address] [place] [address] PCP - General 08/02/08, Pharmacist 17349 [place] [address] Pharmacist Pharmacy 10/19/19 Transit Vehicle Inspector Relationship Specialty Start Date End Date Stas Mora MD [address] [place] [address] PCP - General 08/02/08, Pharmacist 28393 [place] [address] Pharmacist Pharmacy 10/19/19 Transit Vehicle Inspector Relationship Specialty Start Date End Date Stas Mora MD [address] [place] [address] PCP - General 08/02/08, Pharmacist 16548 [place] [address] Pharmacist Pharmacy 10/19/19 Transit Vehicle Inspector Relationship Specialty Start Date End Date Stas Mora MD [address] [place] [address] PCP - General 08/02/08, Pharmacist [address]66 [place] [address] Pharmacist Pharmacy 10/19/19 Transit Vehicle Inspector Relationship Specialty Start Date End Date Stas Mora MD [address] [place] [address] PCP - General 08/02/08, Pharmacist [address]61 [place] [address] Pharmacist Pharmacy 10/19/19 Transit Vehicle Inspector Relationship Specialty Start Date End Date Stas Mora MD [address] [place] [address] PCP - General 08/02/08, Pharmacist [address] [place] [address] Pharmacist Pharmacy 10/19/19 Transit Vehicle Inspector Relationship Specialty Start Date End Date Stas Mora MD [address] [place] [address] PCP - General 08/02/08, Pharmacist [address] [place] [address] Pharmacist Pharmacy 10/19/19 Jenna Fitzpatrick, JETHRO.GUEST ATTENDANT [address] [place] [address] [employer] [facility] 02/28/24 Transit Vehicle Inspector Relationship Specialty Start Date End Date Stas Mora MD [address] [place] [address] PCP - General 08/02/08, Pharmacist 43275 [place] [address] Pharmacist Pharmacy 10/19/19 Jenna Fitzpatrick, SAMPLE CUTTER.GUEST ATTENDANT [address] [place] [address] [employer] [facility] 02/28/24 Elvis Kearney APRN.GUEST ATTENDANT [address] [place] [address] [employer]ting [employer] [facility] 03/08/24 Transit Vehicle Inspector Relationship Specialty Start Date End Date Stas Mora MD [address] [place] [address] PCP - General 08/02/08, Pharmacist [address]276 [place] [address] Pharmacist Pharmacy 10/19/19 Jenna Fitzpatrick APRN.GUEST ATTENDANT [address] [place] [address] Waste And Batting [facility] 02/28/24 Elvis Kearney APRN.GUEST ATTENDANT [address] [place] [address] Waste And Batting Waste Chopper [facility] 03/08/24 Transit Vehicle Inspector Relationship Specialty Start Date End Date Stas Mora MD [address] [place] [address] PCP - General 08/02/08, Pharmacist [address] [place] [address] Pharmacist Pharmacy 10/19/19 Jenna Fitzpatrick SAMPLE CUTTER.GUEST ATTENDANT [address] [place] [address] [employer] And [employer]ting [facility] 02/28/24 Elvis Kearney APRN.GUEST ATTENDANT [address] [place] [address] Waste And Batting [employer] [facility] 03/08/24 Transit Vehicle Inspector Relationship Specialty Start Date End Date Stas Mora MD [address] [facility] [place] [address] PCP - General 08/02/08, Pharmacist [address]759 [place] [address] Pharmacist Pharmacy 10/19/19 Jenna Fitzpatrick, SAMPLE CUTTER.GUEST ATTENDANT [address] [facility] [place] [address] Waste And Batting [employer] [facility] 02/28/24 Elvis Kearney SAMPLE CUTTER.GUEST ATTENDANT [address] [facility] [place] [address] Waste And Batting [facility] 03/08/24 Transit Vehicle Inspector Relationship Specialty Start Date End Date Stas Mora MD [address] [facility] [place] [address] PCP - General 08/02/08, Pharmacist [address]42 [place] [address] Pharmacist Pharmacy 10/19/19 Jenna Fitzpatrick, SAMPLE CUTTER.GUEST ATTENDANT [address] [facility] [place] [address] Waste And Batting [employer] 02/28/24 Elvis Kearney, SAMPLE CUTTER.GUEST ATTENDANT [address] [facility] [place] [address] Waste And Batting [facility] 03/08/24 Transit Vehicle Inspector Relationship Specialty Start Date End Date Stas Mora MD [address] [facility] [place] [address] PCP - General 08/02/08, Pharmacist [address]65 [place] [address] Pharmacist Pharmacy 10/19/19 Jenna Fitzpatrick APRN.GUEST ATTENDANT [address] [place] [address] Waste And Batting Waste Chopper [facility] 02/28/24 Elvis Kearney APRN.GUEST ATTENDANT [address] [place] [address] Waste And Batting Waste Chopper [facility] 03/08/24 Transit Vehicle Inspector Relationship Specialty Start Date End Date Stas Mora MD [address] [place] [address] PCP - General 08/02/08, Pharmacist 24840 [place] [address] Pharmacist Pharmacy 10/19/19 Jenna Fitzpatrick APRN.GUEST ATTENDANT [address] [place] [address] [facility] 02/28/24 Elvis Kearney APRN.GUEST ATTENDANT [address] [place] [address] [facility] 03/08/24 Transit Vehicle Inspector Relationship Specialty Start Date End Date Stas Mora MD [address] [place] [address] PCP - General 08/02/08, Pharmacist [address] [place] [address] Pharmacist Pharmacy 10/19/19 Jenna Fitzpatrick APRN.GUEST ATTENDANT [address] [place] [address] Waste And Batting [facility] 02/28/24 Elvis Kearney APRN.GUEST ATTENDANT [address] [facility] [place] [address] Waste And Batting [facility] 03/08/24 Transit Vehicle Inspector Relationship Specialty Start Date End Date Stas Mora MD [address] [facility] [place] [address] PCP - General 08/02/08, Pharmacist [address]498 [place] [address] Pharmacist Pharmacy 10/19/19 Jenna Fitzpatrick APRN.GUEST ATTENDANT [address] [facility] [place] [address] Waste And Batting [facility] 02/28/24 Elvis Kearney APRN.GUEST ATTENDANT [address] [facility] [place] [address] Waste And Batting [facility] 03/08/24 Transit Vehicle Inspector Relationship Specialty Start Date End Date Stas Mora MD [address] [facility] [place] [address] PCP - General 08/02/08, Pharmacist [address] [place] [address] Pharmacist Pharmacy 10/19/19 Jenna Fitzpatrick SAMPLE CUTTER.GUEST ATTENDANT [address] [facility] [place] [address] Waste And Batting [facility] 02/28/24 Elvis Kearney APRN.GUEST ATTENDANT [address] [facility] [place] [address] Waste And Batting [facility] 03/08/24 Transit Vehicle Inspector Relationship Specialty Start Date End Date Stas Mora MD [address] [place] [address] PCP - General 08/02/08, Pharmacist 58861 [place] [address] Pharmacist Pharmacy 10/19/19 Jenna Fitzpatrick APRN.GUEST ATTENDANT [address] [place] [address] Waste And Batting [facility] 02/28/24 Elvis Kearney SAMPLE CUTTER.GUEST ATTENDANT [address] [place] [address] Waste And Batting Waste Chopper [facility] 03/08/24 Transit Vehicle Inspector Relationship Specialty Start Date End Date Stas Mora MD [address] [place] [address] PCP - General 08/02/08, Pharmacist [address] [place] [address] Pharmacist Pharmacy 10/19/19 Jenna Fitzpatrick SAMPLE CUTTER.GUEST ATTENDANT [address] [place] [address] Waste And [employer]ting [facility] 02/28/24 Elvis Kearney SAMPLE CUTTER.GUEST ATTENDANT [address] [place] [address] Waste And Batting [facility] 03/08/24 Transit Vehicle Inspector Relationship Specialty Start Date End Date Stas Mora MD [address] [place] [address] PCP - General 08/02/08, Pharmacist 23279 [place] [address] Pharmacist Pharmacy 10/19/19 Jenna Fitzpatrick APRN.GUEST ATTENDANT [address] [place] [address] Waste And Batting [facility] 02/28/24 Elvis Kearney APRN.GUEST ATTENDANT [address] [place] [address] Waste And Batting [facility] 03/08/24 Transit Vehicle Inspector Relationship Specialty Start Date End Date Stas Mora MD [address] [place] [address] PCP - General 08/02/08, Pharmacist [phone] [place] [address] Pharmacist Pharmacy 10/19/19 Jenna Fitzpatrick APRN.GUEST ATTENDANT [address] [place] [address] Waste And Batting [facility] 02/28/24 Elvis Kearney APRN.GUEST ATTENDANT [address] [place] [address] [facility] 03/08/24 Transit Vehicle Inspector Relationship Specialty Start Date End Date Stas Mora MD [address] [place] [address] PCP - General 08/02/08, Pharmacist [address]32 [place] [address] Pharmacist Pharmacy 10/19/19 Jenna Fitzpatrick APRN.GUEST ATTENDANT [address] [place] [address] Waste And [employer]ting [facility] 02/28/24 Elvis Kearney APRN.GUEST ATTENDANT [address] [place] [address] Waste And Batting [facility] 03/08/24 Transit Vehicle Inspector Relationship Specialty Start Date End Date Stas Mora MD [address] [place] [address] PCP - General 08/02/08, Pharmacist [address] [place] [address] Pharmacist Pharmacy 10/19/19 Jenna Fitzpatrick, SAMPLE CUTTER.GUEST ATTENDANT [address] [place] [address] Waste And [employer]ting [facility] 02/28/24 Elvis Kearney SAMPLE CUTTER.GUEST ATTENDANT [address] [place] [address] [facility] 03/08/24 Transit Vehicle Inspector Relationship Specialty Start Date End Date Stas Moar MD [address] [place] [address] PCP - General 08/02/08, Pharmacist [address]80 [place] [address] Pharmacist Pharmacy 10/19/19 Elvis Kearney SAMPLE CUTTER.GUEST ATTENDANT [address] [place] [address] [facility] 03/08/24 Transit Vehicle Inspector Relationship Specialty Start Date End Date Stas Mora MD [address] [place] [address] PCP - General 08/02/08, Pharmacist [address]695 [place] [address] Pharmacist Pharmacy 10/19/19 Elvis Kearney SAMPLE CUTTER.GUEST ATTENDANT [address] [place] [address] Waste And Batting Waste Chopper [facility] 03/08/24 Team Status: Active Member Role [...] Provider Active Sta rt: September 06, 2024 Transit Vehicle Inspector Relationship Specialty Start Date End Date Stas Mora MD [address] [facility] [place] [address] PCP - General 08/02/08 13, Pharmacist 12[address] [facility] [address] [place], [place] [id number] Pharmacist Pharmacy 10/19/19 Caio ElvisJETHRO.GUEST ATTENDANT [address] [facility] [id number] Waste And Batting [employer] [facility] 03/08/24 Team Status: Active Member Role/Relationship Status Dates Dr. Stas Mora MD Primary Care Provider Active Team Status: Active Member Role/Relationship Status Dates Dr. Stas Mora MD Primary [...] September 01, 2024 Team Status: Inactive Member Role/Relationship Status Dates Dr. Stas Mora MD Primary [...] September 06, 2024 Team Status: Active Member Role/Relationship Status Dates Dr. Stas Mora MD Primary [...] September 02, 2024 Team Status: Active Member Role/Relationship Status Dates Dr. Stas Mora MD Primary [...] September 03, 2024 Team Status: Active Member Role/Relationship Status Dates Dr. Stas Mora MD Primary [...] September 04, 2024 Team Status: Active Member Role/Relationship Status Dates Dr. Stas Mora MD Primary [...] September 05, 2024 Team Status: Active Member Role/Relationship Status Dates Dr. Stas Mora MD Primary [...] Provider Active Sta rt: September 06, 2024 Team Status: Active Member Role/Relationship Status Dates Dr. Stas Mora MD Primary Care Provider Active Start: September 07, 2024 Shayy GAMA MD Attending Provider Active Start: September 07, 2024 Shayy GAMA MD Referring Provider Active Start: September 07, 2024 Team Status: Inactive Member Role/Relationship Status Dates Dr. Stas Mora MD Primary Care Provider Active Start: September 07, 2024 End: September 07, 2024 Halina Carmona NP, INGOT PASSER-C Attending Provider Active Start: September 07, 2024 End: September 07, 2024 Team Status: Active Member Role/Relationship Status Dates Dr. Stas Mora MD Primary Care Provider Active Start: September 08, 2024 Shayy GAMA MD Attending Provider Active Start: September 08, 2024 Team Status: Active Member Role/Relationship Status Dates Dr. Stas Mora MD Primary Care Provider Active Start: September 12, 2024 Shayy GAMA MD Attending Provider Active Start: September 12, 2024 Team Status: Active Member Role/Relationship Status Dates Dr. Stas Mora MD Primary Care Provider Active Start: September 14, 2024 Shayy GAMA MD Attending Provider Active Start: September 14, 2024 Team Status: Active Member Role/Relationship Status Dates Dr. Stas Mora MD Primary Care Provider Active Start: September 15, 2024 Shayy GAMA MD Attending Provider Active Start: September 15, 2024 Team Status: Active Member Role/Relationship Status Dates Dr. Stas Mora MD Primary Care Provider Active Start: September 19, 2024 Shayy GAMA MD Attending Provider Active Start: September 19, 2024 Team Status: Active Member Role/Relationship Status Dates Dr. Stas Mora MD Primary Care Provider Active Start: September 21, 2024 Shayy GAMA MD Attending Provider Active Start: September 21, 2024 Team Status: Active Member Role/Relationship Status Dates Dr. Stas Mora MD Primary Care Provider Active Start: September 23, 2024 Shayy GAMA MD Attending Provider Active Start: September 23, 2024 Team Status: Active Member Role/Relationship Status Dates Dr. Stas Mora MD Primary Care Provider Active Start: September 26, 2024 Shayy GAMA MD Attending Provider Active Start: September 26, 2024 Team Status: Active Member Role/Relationship Status Dates Dr. Stas Mora MD Primary Care Provider Active Start: September 28, 2024 Shayy GAMA MD Attending Provider Active Start: September 28, 2024 Team Status: Active Member Role/Relationship Status Dates Dr. Stas Mora MD Primary Care Provider Active Start: September 29, 2024 Shayy GAMA MD Attending Provider Active Start: September 29, 2024 Team Status: Active Member Role/Relationship Status Dates Dr. Stas Mora MD Primary Care Provider Active Start: October 05, 2024 Shayy GAMA MD Attending Provider Active Start: October 05, 2024 Team Status: Active Member Role/Relationship Status Dates Dr. Stas Mora MD Primary Care Provider Active Start: October 06, 2024 Shayy GAMA MD Attending Provider Active Start: October 06, 2024 Team Status: Inactive Member Role/Relationship Status Dates Dr. Stas Mora MD Primary Care Provider Active Start: September 08, 2024 End: September 08, 2024 Halina Carmona NP, INGOT PASSER-C Attending Provider Active Start: September 08, 2024 End: September 08, 2024 Team Status: Active Member Role/Relationship Status Dates Dr. Stas Mora MD Primary Care Provider Active Start: September 12, 2024 Shayy GAMA MD Attending Provider Active Start: September 12, 2024 Team Status: Active Member Role/Relationship Status Dates Dr. Stas Mora MD Primary Care Provider Active Start: September 14, 2024 Shayy GAMA MD Attending Provider Active Start: September 14, 2024 Team Status: Active Member Role/Relationship Status Dates Dr. Stas Moar MD Primary Care Provider Active Start: September 15, 2024 Shayy GAMA MD Attending Provider Active Start: September 15, 2024 Team Status: Active Member Role/Relationship Status Dates Dr. Stas Mora MD Primary Care Provider Active Start: September 19, 2024 Shayy GAMA MD Attending Provider Active Start: September 19, 2024 Team Status: Active Member Role/Relationship Status Dates Dr. Stas Mora MD Primary Care Provider Active Start: September 21, 2024 Shayy GAMA MD Attending Provider Active Start: September 21, 2024 Team Status: Active Member Role/Relationship Status Dates Dr. Stas Mora MD Primary Care Provider Active Start: September 23, 2024 Shayy GAMA MD Attending Provider Active Start: September 23, 2024 Team Status: Active Member Role/Relationship Status Dates Dr. Stas Mora MD Primary Care Provider Active Start: September 26, 2024 Shayy GAMA MD Attending Provider Active Start: September 26, 2024 Team Status: Active Member Role/Relationship Status Dates Dr. Stas Mora MD Primary Care Provider Active Start: September 28, 2024 Shayy GAMA MD Attending Provider Active Start: September 28, 2024 Team Status: Active Member Role/Relationship Status Dates Dr. Stas Mora MD Primary Care Provider Active Start: September 29, 2024 Shayy GAMA MD Attending Provider Active Start: September 29, 2024 Team Status: Active Member Role/Relationship Status Dates Dr. Stas Mora MD Primary Care Provider Active Start: October 05, 2024 Shayy GAMA MD Attending Provider Active Start: October 05, 2024 Team Status: Active Member Role/Relationship Status Dates Dr. Stas Mora MD Primary Care Provider Active Start: October 06, 2024 Shayy GAMA MD Attending Provider Active Start: October 06, 2024 Team Status: Inactive Member Role/Relationship Status Dates Dr. Stas Mora MD Primary Care Provider Active Start: September 30, 2024 End: September 30, 2024 Halina Carmona INGOT PASSER, INGOT PASSER-C Attending Provider Active Start: September 30, 2024 End: September 30, 2024 Team Status: Active Member Role/Relationship Status Dates Dr. Stas Mora MD Primary Care Provider Active Start: October 05, 2024 Shayy GAMA MD Attending Provider Active Start: October 05, 2024 Team Status: Active Member Role/Relationship Status Dates Dr. Stas Mora MD Primary Care Provider Active Start: October 06, 2024 Shayy GAMA MD Attending Provider Active Start: October 06, 2024 Team Status: Active Member Role/Relationship Status Dates Dr. Stas Mora MD Primary Care Provider Active Start: October 31, 2024 Shayy GAMA MD Attending Provider Active Start: October 31, 2024 Team Status: Inactive Member Role/Relationship Status Dates Dr. Stas Mora MD Primary Care Provider Active Start: October 20, 2024 End: October 20, 2024 Halina Carmona NP, INGOT PASSER-C Attending Provider Active Start: October 20, 2024 End: October 20, 2024 Team Status: Active Member Role/Relationship Status Dates Dr. Stas Mora MD Primary Care Provider Active Start: October 31, 2024 Shayy GAMA MD Attending Provider Active Start: October 31, 2024 Goals (unrecognized section and content) Goals [...] BE BASED ON THE PRIMARY CLINICAL RECORDS. [employer] provides no warranty or guarantee of the accuracy or completeness of information in this document.
[2024-11-02 07:41] LABS: Hematocrit 35.3 % (40-54); Hemoglobin 11.2 g/dL (13.0-16.5); Immature Granulocytes Count 0.030 X10^3/uL (0.0-0.0); Mean Corp Hgb Conc 31.7 g/dL (32-36); Mean Corpuscular Volume 81.5 fL (80-94); Mean Platelet Vol. 10.3 fl (6.2-12.0); NRBC Flagged by Analyzer 0 % (0-5); Platelet Count 225 K/mm3 (150-450); RBC Distribution Width CV 18.0 % (11.6-14.6); RBC Distribution Width SD 53.7 fl (35.1-43.9); Red Blood Count 4.33 M/mm3 (4.6-6.2); White Blood Count 8.1 K/mm3 (4.4-11.0)
[2024-11-02 08:01] LABS: Anion Gap 10 (5-15); BUN 19 mg/dL (4-19); BUN/Creat Ratio 30.4 RATIO (10-20); Calcium,Total 8.7 mg/dL (7.6-11.0); Carbon Dioxide 22.3 mmol/L (21.0-32.0); Chloride 106 mmol/L (98-108); Glucose 110 mg/dL (70-99); Potassium 3.9 mmol/L (3.3-5.1)
== END ==
LOC: OLS.WHLTSB 05:00
PROVIDERS: PCP Family Medicine; Visit Provider Internal Medicine
DX: I48.91 Unspecified atrial fibrillation (principal)
CPT/HCPCS: 36415; 80048; 85025

== ENCOUNTER → 2024-11-23 05:00 | Outpatient (REF) | payer MEDICARE, SELFPAY ==
--- OUTSIDE RECORDS SUMMARY | 2024-11-23 04:19 | XMS RPT_ITS | CCD ---
Author Organization [facility] Care Team Providers Care Crm Developer Name Role Phone TEE, DARRELL E Unavailable Unavailable TEE, DARRELL E Unavailable Unavailable TEE DARRELL Unavailable Unavailable TEE DARRELL Unavailable Unavailable Stas Mroa Unavailable Unavailable AISHA OLIVEIRANETH Unavailable Unavailable DARRELL [...] Care Unavailable STERLING LYNCH DO Attending Unavailable Amari MORELOS.Jenna STATON Unavailable Caio DIRECTIONAL BORE OPERATOR.HEDGE FUND ACCOUNTANT, Elvis Unavailable AMELIA, LUCIANA C Referring Unavailable ELDERBROCK, STAS D Primary Care Unavailable Tannhof DIRECTIONAL BORE OPERATOR.HEDGE FUND ACCOUNTANT, Jenna Unavailable Unavail able Tannhof DIRECTIONAL BORE OPERATOR.HEDGE FUND ACCOUNTANT, Jenna Unavailable Morgan POLANCO, Dr. Ruiz Primary [...] Referring Provider Unavailrachel Carmona NP-CHalina Attending Provider Ever POLANCO, Dr. Lucas Attending Provider STAS MORA Attending Unavailable ELDERBROCK, STAS D Primary Care [...] Unavailable ELDERBROCK, STAS D Primary Care Unavailable ELDERSTAS GUTIERREZ Referring Unavailable ELDERBROCKSTAS Primary Care Unavailable ELDERSTAS GUTIERREZ Referring Unavailable ELDERBROCKSTAS Primary Care Unavailable ELDERSTAS GUTIERREZ Attending Unavailable ELDERSTAS GUTIERREZ Primary Care Unavailable ELDERSTAS GUTIERREZ Primary Care Unavailable ELDERSTAS GUTIERREZ Referring Unavailable ELDERBROCKSTAS Referring Unavailable ELDERBROCKSTAS Primary Care Unavailable GANTA, LUCIANA Referring Unavailable ELDERSTAS GUTIERREZ Primary Care Unavailable GANTA, LUCIANA Attending Unavailable STAS MORA Primary Care Unavailable ELDERSTAS GUTIERREZ Referring Unavailable Oleghe OLS, Efewongbe Attending Unavailabl e Elderbrock, Stas Primary Care Unavailable Elderbrock, Stas Primary Care Unavailable Oleghe OLS, Efewongbe Attending Unavailabl e Koram, Kathy Monisha Admitting Unavailable Koram, Kathy Monisha Consulting Unavailable Alberto, Navid Attending Unavailable Elderbrock, Stas Primary Care Unavailable Oleghe OLS, Efewongbe Attending Unavailabl e Elderbrock, Stas Primary Care Unavailable Koram, Kathy Monisha Consulting Unavailable Koram, Kathy Monisha Admitting Unavailable Koram, Kathy Monisha Attending Unavailable Elderbrock, Stas Primary Care Unavailable Alberto, Navid Attending Unavailable Alberto, Navid Consulting Unavailable Oleghe OLS, Efewongbe Attending Unavailabl e Elderbrock, Stas Primary Care Unavailable Oleghe OLS, Efewongbe Attending Unavailabl e Oleghe OLS, Efewongbe Referring Unavailabl e Elderbrock, Stas Primary Care Unavailable Oleghe OLS, Efewongbe Attending Unavailabl e Elderbrock, Stas Primary Care Unavailable Oleghe OLS, Efewongbe Attending Unavailabl e Elderbrock, Stas Primary Care Unavailable Oleghe OLS, Efewongbe Attending Unavailabl e Elderbrock, Stas Primary Care Unavailable Oleghe OLS, Efewongbe Attending Unavailabl e Elderbrock, Stas Primary Care Unavailable Elderbrock, Stas Primary Care Unavailable Halina Carmona Attending Unavailable Elderbrock, Stas Primary Care Unavailable Kristine Halina Attending Unavailable Elderbrock, Stas Primary Care Unavailable Kristine Halina Attending Unavailable Oleghe OLS, Efewongbe Attending Unavailabl e Elderbrock, Stas Primary Care Unavailable Oleghe OLS, Efewongbe Attending Unavailabl e Elderbrock, Stas Primary Care Unavailable Elderbrock, Stas Primary Care Unavailable Oleghe OLS, Efewongbe Attending Unavailabl e Oleghe OLS, Efewongbe Attending Unavailabl e Elderbrock, Stas Primary Care Unavailable Elderbrock, Stas Primary Care Unavailable Oleghe OLS, Efewongbe Attending Unavailabl e Elderbrock, Stas Primary Care Unavailable Tickton, Halina Attending Unavailable Oleghe, Efewongbe Attending Unavailable Elderbrock, Stas Primary Care Unavailable Oleghe, Efewongbe Attending Unavailable Elderbrock, Stas Primary Care Unavailable Koram, Kathy Monisha Admitting Unavailable Koram, Kathy Monisha Attending Unavailable Koram, Kathy Monisha Consulting [facility]available [facility] Unavailable Elderbrock, Stas Primary Care Unavailable Oleghe OLS, Efewongbe Attending Unavailabl e Elderbrock, Stas Primary Care Unavailable Oleghe OLS, Efewongbe Attending Unavailabl e Medications Current Medications Medication Drug Class(es) Dates [...] unspecified vessel or lesion type, unspecified whether [place] or transplanted heart Take 1 tablet by [...] mg tablet Active 10 mg PO DAILY 30 0 December 22, 2021 12:00am Comment on above: Take by mouth. Take 1 tablet by darrian once daily. memantine hydrochloride 10 mg oral tablet (18 sources) Q-badqxy-U-aspartate Receptor Antagonist Start: 06-02-19 End: 11-29-19 take [...] Date: 01/01/06 Status: Ordered polyethylene glycol 3350 [id number] mg powder for oral solution (7 sources) Osmotic Laxative Start: 09-07-19 Polyethylene Glycol 3350 (Miralax) 17 gram/dose powder Active 17 g PO DAILY 510 30 0 September 06, 2024 12:00am 24 hr rivastigmine 0.192 mg/hr transdermal system (12 sources) Start: 09-02-19 Rivastigmine 4.6 mg/24 hour [...] on above: [facility] 1 capsule [facility] at bed[facility]. vardenafil 10 mg oral [...] disease (20 sources) Atherosclerotic heart disease of [place] coronary artery without angina pectoris; Translations: [Coronary atherosclerosis] Onset: 10-07-2005 06-26-2017 Chronic Delirium, dementia, and amnestic and other cognitive disorders (16 sources) Vascular dementia ; Translations: [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, psychotic disturbance, mood disturbance, or anxiety (HCC)] Onset: 04-27-2024 08-14-2023 Chronic Diabetes mellitus without complication (11 sources) Hyperglycemia; Translations: [Hyperglycemia, unspecified] 02-19-2021 Episodic Disorders of lipid metabolism (20 sources) Dyslipidemia; Translations: [Hyperlipidemia, unspecified] Onset: 08-26-2022 Chronic E Codes: Fall (17 sources) Fall; Translations: [Unspecified fall, initial encounter] Onset: 09-06-2024 09-01-2024 Episodic Essential hypertension (20 sources) Benign essential hypertension; Translations: [Essential (primary) hypertension] Onset: 10-07-2005 10-07-2005 Chronic Fluid and electrolyte disorders (11 sources) Lactic acidosis; Translations: [Acidosis] 02-19-2021 Episodic Genitourinary symptoms and ill-defined conditions (1 source) Increased frequency of urination; Translations: [Frequency of micturition] 11-26-2023 Episodic Late effects of cerebrovascular disease (3 sources) Sequela of cerebrovascular accident; Translations: [Unspecified sequelae of cerebral infarction] 06-01-2023 Chronic Malaise and fatigue (10 sources) Asthenia; Translations: [Weakness] 02-10-2023 Episodic Open wounds of head; neck; and trunk (1 source) Laceration of head; Translations: [Laceration without foreign body of other part of head, initial encounter] Onset: 11-17-2022 Episodic Osteoarthritis (20 sources) Localized, primary osteoarthritis; Translations: [Unilateral primary osteoarthritis, unspecified knee] Onset: 10-07-2005 10-07-2005 Chronic Other aftercare (20 sources) Long-term current use of anticoagulant; Translations: [jail (current) 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] Onset: 09-22-2016 Episodic Other aftercare (4 sources) Patient encounter status; Translations: [Encounter for therapeutic drug level monitoring] Episodic Other aftercare (1 source) Post-discharge follow-up; Translations: [Encounter for follow-up examination after completed treatment for conditions other than malignant neoplasm] Episodic Other circulatory disease (16 sources) H/O: atrial fibrillation; Translations: [Personal history of other diseases of the circulatory system] 09-01-2024 Episodic Other circulatory disease (16 sources) History of transient ischemic attack; Translations: [...] parkinsonism] 06-01-2024 Chronic Other nervous system disorders (16 sources) Unable to walk; Translations: [Difficulty in [...] Episodic Other nutritional; endocrine; and metabolic disorders (16 sources) Adult failure to thrive syndrome; Translations: [Adult failure to thrive] 09-01-2024 Episodic Other nutritional; endocrine; and metabolic disorders (1 source) Adult failure to thrive; Translations: [Adult failure to thrive] Onset: 09-06-2024 Episodic Pneumonia (except that caused by tuberculosis or sexually transmitted disease) (11 sources) Community acquired pneumonia; Translations: [Pneumonia, unspecified organism] 02-10-2021 Episodic Residual codes; unclassified (3 sources) Bilateral lower leg edema; Translations: [Localized edema] 09-15-2023 Episodic Residual codes; unclassified (1 source) Hallucinations; Translations: [Hallucinations, unspecified] 08-31-2024 Episodic Screening and history of mental health and substance abuse codes (18 sources) H/O: dementia; Translations: [Personal history of other mental and behavioral disorders] Onset: 08-31-2024 09-01-2024 Episodic Spondylosis; intervertebral disc disorders; other back problems (1 source) Acute low back pain; Translations: [Acute right-sided low back pain, unspecified whether sciatica present] 03-12-2020 Episodic Superficial injury; contusion (20 sources) Contusion of hip; Translations: [Contusion of unspecified hip, initial encounter] Onset: 09-06-2024 09-01-2024 Episodic Syncope (11 sources) Syncope; Translations: [Syncope and collapse] 09-08-2016 Episodic Thyroid disorders (1 source) Thyroid nodule; Translations: [Nontoxic single thyroid nodule] Chronic Transient cerebral ischemia (14 sources) Transient cerebral ischemia; Translations: [Transient cerebral [...] 04-24-2011 04-24-2011 Episodic Other aftercare (3 sources) mechanical insulator (current) 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; Translations: [Long-term (current) [...] Range Facility Absolute lymphocyte countOrd ered By: Shayy Curtis on 11-02-2024 Lymphocytes Auto (Unsp spec) [#/Vol] 1.10 10*3/uL 0.83-4.51 [facility] Absolute neutrophil countOrd ered By: Shayy Curtis on 11-02-2024 Neutrophils (Bld) [#/Vol] 6.2 10*3/uL 2.0-7.7 [facility] Anion gap in Serum or Plasma Ordered By: Shayy Curtis on 11-02-2024 Anion gap [Moles/Vol] 10 mmol/L 5-15 [facility] Automated lymphocyte count a s percentage of total leukocytesOrdered By: Shayy Curtis on 11-02-2024 Lymphocytes/100 WBC Auto (Unsp spec) 13.5 % Low 19-41 [facility] BUN/creatinine ratioOrdered By: Shayy Curtis on 11-02-2024 Urea nitrogen/Creatinine [Mass ratio] 30.4 mg/mg High 10-20 [facility] Basophil percentageOrdered B y: Shayy Curtis on 11-02-2024 Basophils/100 WBC (Bld) 0.5 % 0-1 [facility] Carbon dioxide, total [Moles /volume] in Central venous bloodOrdered By: Shayy Curtis on 11-02-2024 CO2 [Moles/Vol] 22.3 mmol/L 21.0-32.0 [facility] Chloride assayOrdered By: Hung Curtis on 11-02-2024 Chloride [Moles/Vol] 106 mmol/L 98-108 [facility] Eosinophil percentageOrdered By: Shayy Curtis on 11-02-2024 Eosinophils/100 WBC (Bld) 1.4 % 0-5 [facility] Erythrocyte distribution wid th ratioOrdered By: Shayy Curtis on 11-02-2024 Erythrocyte distribution width (RBC) [Ratio] 18.0 % High 11.6-14.6 [facility] Erythrocyte distribution wid th standard deviationOrdered By: Shayy Curtis on 11-02-2024 Erythrocyte distribution width (RBC) [Ratio] 53.7 fl High 35.1-43.9 [facility] Glomerular filtration rate ( GFR) estimation/1.73 sq m using serum, plasma, or whole bOrdered By: Shayy Curtis on 11-02-2024 GFR/1.73 sq M.predicted among non-blacks MDRD (S/P/Bld) [Vol rate/Area] 91 mL/min/{1.73_m2} >60 [facility] Comment on above: mL/min/1.73m2 CKD-EP I Creatinine Equation (2020) Hematocrit Auto (Bld) [Volum e fraction]Ordered By: Shayy Curtis on 11-02-2024 Hematocrit (Bld) [Volume fraction] 35.3 % Low 40-54 [facility] Hemoglobin measurementOrdere d By: Shayy Curtis on 11-02-2024 Hemoglobin (Bld) [Mass/Vol] 11.2 g/dL Low 13.0-16.5 [facility] Immature granulocytes/100 WB C Auto (Bld)Ordered By: Shayy Curtis on 11-02-2024 Immature granulocytes/100 WBC (Bld) 0.400 % 0.0-0.9 [facility] Comment on above: IG% - Immature Granu locytes (promyelocytes, myelocytes and metamyelocytes) > 1% indicates that a LEFT SHIFT is Present. MCV (mean corpuscular volume ) determinationOrdered By: Shayy Curtis on 11-02-2024 MCV (RBC) [Entitic vol] 81.5 fL 80-94 [facility] Mean corpuscular hemoglobin (MCH) determinationOrdered By: Shayy Curtis 11-02-2024 MCH (RBC) [Entitic mass] 25.9 pg Low 27.0-32.0 [facility] Mean corpuscular hemoglobin concentration (MCHC) determinationOrdered By: Shayy Curtis on 11-02-2024 MCHC (RBC) [Mass/Vol] 31.7 g/dL Low 32-36 [facility] Mean platelet volume determi nationOrdered By: Shayy Curtis on 11-02-2024 Platelet mean volume (Bld) [Entitic vol] 10.3 fL 6.2-12.0 [facility] Monocyte percentageOrdered B y: Shayy Curtis on 11-02-2024 Monocytes/100 WBC (Bld) 7.7 % 0-10 [facility] Neutrophil percentageOrdered By: [facility] on 11-02-2024 Neutrophils/100 WBC (Bld) 76.5 % High 47-70 [facility] Nucleated red blood cell per centageOrdered By: Shayy Curtis on 11-02-2024 Nucleated RBC/100 WBC (Bld) [Ratio] 0 % 0-5 [facility] Platelet countOrdered By: Hung ocnnorirlanda Curtis on 11-02-2024 Platelets (Bld) [#/Vol] 225 10*3/uL 150-450 [facility] Potassium measurement (mass/ volume)Ordered By: Shayy Curtis on 11-02-2024 Potassium (Unsp spec) [Mass/Vol] 3.9 mmol/L 3.3-5.1 [facility] RBC Auto (Bld) [#/Vol]Ordere d By: Shayy Curtis on 11-02-2024 RBC (Bld) [#/Vol] 4.33 10*6/uL Low 4.6-6.2 [facility] Serum creatinine measurement (mass/volume)Ordered By: Shayy Curtis on 11-02-2024 Creatinine [Mass/Vol] 0.62 mg/dL Low 0.70-1.20 [facility] Serum glucose measurement (m ass/volume)Ordered By: Shayy Curtis on 11-02-2024 Glucose [Mass/Vol] 110 mg/dL High 70-99 [facility] Serum or plasma calcium alvaro urement (mass/volume)Ordered By: Shayy Curtis on 11-02-2024 Calcium [Mass/Vol] 8.7 mg/dL 7.6-11.0 [facility] Serum or plasma urea nitroge n measurement (mass/volume)Ordered By: Shayy Curtis on 11-02-2024 Urea nitrogen [Mass/Vol] 19 mg/dL 4-19 [facility] Sodium levelOrdered By: Latrice simonraffiradha Curtis on 11-02-2024 Sodium [Moles/Vol] 139 mmol/L 133-145 [facility] White blood cell (WBC) count Ordered By: Shayy Curtis on 11-02-2024 WBC (Bld) [#/Vol] 8.1 10*3/uL 4.4-11.0 [facility] International normalized rat io (INR) measurement by fingerstickOrdered By: Shayy Curtis on 10-31-2024 INR Coag (BldC) [Relative time] 1.8 [facility] Comment on above: Critical Value > 4.0 Whole blood prothrombin time Ordered By: Shayy Curtis on 10-31-2024 PT Coag (Bld) [Time] 20.2 s High 11.7-14.9 [facility] International normalized rat io (INR) measurement by fingerstickOrdered By: Shayy Curtis on 10-06-2024 INR Coag (BldC) [Relative time] 2.1 [facility] Comment on above: Critical Value > 4.0 Whole blood prothrombin time Ordered By: Shayy Curtis on 10-06-2024 PT Coag (Bld) [Time] 22.6 s High 11.7-14.9 [facility] Absolute lymphocyte countOrd ered By: Latricerobsonirlanda Salazartomye on 10-05-2024 Lymphocytes Auto (Unsp spec) [#/Vol] 1.54 10*3/uL 0.83-4.51 [facility] Absolute neutrophil countOrd ered By: Efhollieongirlanda Salazartomye on 10-05-2024 Neutrophils (Bld) [#/Vol] 4.2 10*3/uL 2.0-7.7 [facility] Anion gap in Serum or Plasma Ordered By: Efhollieongirlanda Bernale on 10-05-2024 Anion gap [Moles/Vol] 10 mmol/L 5-15 [facility] Automated lymphocyte count a s percentage of total leukocytesOrdered By: Shayy Salazartomyradha on 10-05-2024 Lymphocytes/100 WBC Auto (Unsp spec) 23.8 % 19-41 [facility] BUN/creatinine ratioOrdered By: Shayy Salazartomye on 10-05-2024 Urea nitrogen/Creatinine [Mass ratio] 18.2 mg/mg 10-20 [facility] Basophil percentageOrdered B y: Hunghollieongirlanda Salazartomye on 10-05-2024 Basophils/100 WBC (Bld) 0.6 % 0-1 [facility] Carbon dioxide, total [Moles /volume] in Central venous bloodOrdered By: Shayy Curtis on 10-05-2024 CO2 [Moles/Vol] 24.6 mmol/L 21.0-32.0 [facility] Chloride assayOrdered By: Ef hollieongbe Ever on 10-05-2024 Chloride [Moles/Vol] 106 mmol/L 98-108 [facility] Eosinophil percentageOrdered By: hollieongbe Oletomye on 10-05-2024 Eosinophils/100 WBC (Bld) 1.9 % 0-5 [facility] Erythrocyte distribution wid th ratioOrdered By: Efhollieongbe Oleghe on 10-05-2024 Erythrocyte distribution width (RBC) [Ratio] 18.2 % High 11.6-14.6 [facility] Erythrocyte distribution wid th standard deviationOrdered By: Efhollieongbe Oleghe on 10-05-2024 Erythrocyte distribution width (RBC) [Ratio] 52.4 fl High 35.1-43.9 [facility] Glomerular filtration rate ( GFR) estimation/1.73 sq m using serum, plasma, or whole bOrdered By: Shayy Cutris on 10-05-2024 GFR/1.73 sq M.predicted among non-blacks MDRD (S/P/Bld) [Vol rate/Area] 87 mL/min/{1.73_m2} >60 [facility] Comment on above: mL/min/1.73m2 CKD-EP I Creatinine Equation (2020) Hematocrit Auto (Bld) [Volum e fraction]Ordered By: Shayy Curtis on 10-05-2024 Hematocrit (Bld) [Volume fraction] 35.0 % Low 40-54 [facility] Hemoglobin measurementOrdere d By: Shayy Curtis on 10-05-2024 Hemoglobin (Bld) [Mass/Vol] 11.0 g/dL Low 13.0-16.5 [facility] Immature granulocytes/100 WB C Auto (Bld)Ordered By: Shayy Curtis on 10-05-2024 Immature granulocytes/100 WBC (Bld) 0.300 % 0.0-0.9 [facility] Comment on above: IG% - Immature Granu locytes (promyelocytes, myelocytes and metamyelocytes) > 1% indicates that a LEFT SHIFT is Present. MCV (mean corpuscular volume ) determinationOrdered By: Shayy Curtis on 10-05-2024 MCV (RBC) [Entitic vol] 78.8 fL Low 80-94 [facility] Mean corpuscular hemoglobin (MCH) determinationOrdered By: baldomero Curtis 10-05-2024 MCH (RBC) [Entitic mass] 24.8 pg Low 27.0-32.0 [facility] Mean corpuscular hemoglobin concentration (MCHC) determinationOrdered By: Shayy Curtis on 10-05-2024 MCHC (RBC) [Mass/Vol] 31.4 g/dL Low 32-36 [facility] Mean platelet volume determi nationOrdered By: Shayy Curtis 10-05-2024 Platelet mean volume (Bld) [Entitic vol] 10.3 fL 6.2-12.0 [facility] Monocyte percentageOrdered B y: Shayy Curtis on 10-05-2024 Monocytes/100 WBC (Bld) 8.5 % 0-10 [facility] Neutrophil percentageOrdered By: Shayy Salazartomyradha on 10-05-2024 Neutrophils/100 WBC (Bld) 64.9 % 47-70 [facility] Nucleated red blood cell per centageOrdered By: Hunghollierobsonirlanda Salazartomyradha on 10-05-2024 Nucleated RBC/100 WBC (Bld) [Ratio] 0 % 0-5 [facility] Platelet countOrdered By: Hung baldomero Martintomyradha on 10-05-2024 Platelets (Bld) [#/Vol] 235 10*3/uL 150-450 [facility] Potassium measurement (mass/ volume)Ordered By: Shayy Curtis on 10-05-2024 Potassium (Unsp spec) [Mass/Vol] 4.1 mmol/L 3.3-5.1 [facility] RBC Auto (Bld) [#/Vol]Ordere d By: Latricerobsonirlanda Salazartomyradha on 10-05-2024 RBC (Bld) [#/Vol] 4.44 10*6/uL Low 4.6-6.2 [facility] Serum creatinine measurement (mass/volume)Ordered By: Shayy Curtis on 10-05-2024 Creatinine [Mass/Vol] 0.73 mg/dL 0.70-1.20 [facility] Serum glucose measurement (m ass/volume)Ordered By: Shayy Curtis on 10-05-2024 Glucose [Mass/Vol] 90 mg/dL 70-99 [facility] Serum or plasma calcium alvaro urement (mass/volume)Ordered By: Shayy Curtis on 10-05-2024 Calcium [Mass/Vol] 8.7 mg/dL 7.6-11.0 [facility] Serum or plasma urea nitroge n measurement (mass/volume)Ordered By: Shayy Curtis on 10-05-2024 Urea nitrogen [Mass/Vol] 13 mg/dL 4-19 [facility] Sodium levelOrdered By: Latrice timmy Ever on 10-05-2024 Sodium [Moles/Vol] 140 mmol/L 133-145 [facility] White blood cell (WBC) count Ordered By: Shayy Curtis on 10-05-2024 WBC (Bld) [#/Vol] 6.5 10*3/uL 4.4-11.0 [facility] International normalized rat io (INR) calculationOrdered By: Shayy Curtis on 09-29-2024 INR Coag (Bld) [Relative time] 3.3 {INR} [facility] Prothrombin timeOrdered By: Shayy Curtis on 09-29-2024 PT Coag (PPP) [Time] 34.4 s High 11.7-14.9 [facility] Absolute lymphocyte countOrd ered By: Shayy Curtis on 09-28-2024 Lymphocytes Auto (Unsp spec) [#/Vol] 1.41 10*3/uL 0.83-4.51 [facility] Absolute neutrophil countOrd ered By: Shayy Curtis on 09-28-2024 Neutrophils (Bld) [#/Vol] 4.8 10*3/uL 2.0-7.7 [facility] Anion gap in Serum or Plasma Ordered By: Shayy Curtis on 09-28-2024 Anion gap [Moles/Vol] 13 mmol/L 5-15 [facility] Automated lymphocyte count a s percentage of total leukocytesOrdered By: Shayy Curtis on 09-28-2024 Lymphocytes/100 WBC Auto (Unsp spec) 20.1 % 19-41 [facility] BUN/creatinine ratioOrdered By: Shayy Curtis on 09-28-2024 Urea nitrogen/Creatinine [Mass ratio] 19.9 mg/mg 10-20 [facility] Basophil percentageOrdered B y: Shayy Curtis on 09-28-2024 Basophils/100 WBC (Bld) 0.6 % 0-1 [facility] Carbon dioxide, total [Moles /volume] in Central venous bloodOrdered By: Shayy Curtis on 09-28-2024 CO2 [Moles/Vol] 21.1 mmol/L 21.0-32.0 [facility] Chloride assayOrdered By: Hung Curtis on 09-28-2024 Chloride [Moles/Vol] 105 mmol/L 98-108 [facility] Eosinophil percentageOrdered By: Shayy Curtis on 09-28-2024 Eosinophils/100 WBC (Bld) 2.0 % 0-5 [facility] Erythrocyte distribution wid th ratioOrdered By: Shayy Curtis on 09-28-2024 Erythrocyte distribution width (RBC) [Ratio] 18.3 % High 11.6-14.6 [facility] Erythrocyte distribution wid th standard deviationOrdered By: Shayy Curtis on 09-28-2024 Erythrocyte distribution width (RBC) [Ratio] 52.8 fl High 35.1-43.9 [facility] Glomerular filtration rate ( GFR) estimation/1.73 sq m using serum, plasma, or whole bOrdered By: Shayy Curtis on 09-28-2024 GFR/1.73 sq M.predicted among non-blacks MDRD (S/P/Bld) [Vol rate/Area] 88 mL/min/{1.73_m2} >60 [facility] Comment on above: mL/min/1.73m2 CKD-EP I Creatinine Equation (2020) Hematocrit Auto (Bld) [Volum e fraction]Ordered By: Shayy Curtis on 09-28-2024 Hematocrit (Bld) [Volume fraction] 37.0 % Low 40-54 [facility] Hemoglobin measurementOrdere d By: Shayy Curtis on 09-28-2024 Hemoglobin (Bld) [Mass/Vol] 11.5 g/dL Low 13.0-16.5 [facility] Immature granulocytes/100 WB C Auto (Bld)Ordered By: Shayy Curtis on 09-28-2024 Immature granulocytes/100 WBC (Bld) 0.300 % 0.0-0.9 [facility] Comment on above: IG% - Immature Granu locytes (promyelocytes, myelocytes and metamyelocytes) > 1% indicates that a LEFT SHIFT is Present. MCV (mean corpuscular volume ) determinationOrdered By: Shayy Curtis on 09-28-2024 MCV (RBC) [Entitic vol] 80.3 fL 80-94 [facility] Mean corpuscular hemoglobin (MCH) determinationOrdered By: Shayy Curtis on 09-28-2024 MCH (RBC) [Entitic mass] 24.9 pg Low 27.0-32.0 [facility] Mean corpuscular hemoglobin concentration (MCHC) determinationOrdered By: Shayy Curtis on 09-28-2024 MCHC (RBC) [Mass/Vol] 31.1 g/dL Low 32-36 [facility] Mean platelet volume determi nationOrdered By: Shayy Curtis on 09-28-2024 Platelet mean volume (Bld) [Entitic vol] 10.5 fL 6.2-12.0 [facility] Monocyte percentageOrdered B y: Shayy Curtis on 09-28-2024 Monocytes/100 WBC (Bld) 8.8 % 0-10 [facility] Neutrophil percentageOrdered By: Shayy Curtis on 09-28-2024 Neutrophils/100 WBC (Bld) 68.2 % 47-70 [facility] Nucleated red blood cell per centageOrdered By: Shayy Curtis on 09-28-2024 Nucleated RBC/100 WBC (Bld) [Ratio] 0 % 0-5 [facility] Platelet countOrdered By: Hung Curtis on 09-28-2024 Platelets (Bld) [#/Vol] 280 10*3/uL 150-450 [facility] Potassium measurement (mass/ volume)Ordered By: Shayy Curtis on 09-28-2024 Potassium (Unsp spec) [Mass/Vol] 4.0 mmol/L 3.3-5.1 [facility] RBC Auto (Bld) [#/Vol]Ordere d By: Shayy Curtis on 09-28-2024 RBC (Bld) [#/Vol] 4.61 10*6/uL 4.6-6.2 [facility] Serum creatinine measurement (mass/volume)Ordered By: Shayy Curtis on 09-28-2024 Creatinine [Mass/Vol] 0.71 mg/dL 0.70-1.20 [facility] Serum glucose measurement (m ass/volume)Ordered By: Shayy Curtis on 09-28-2024 Glucose [Mass/Vol] 91 mg/dL 70-99 [facility] Serum or plasma calcium alvaro urement (mass/volume)Ordered By: Shayy Curtis on 09-28-2024 Calcium [Mass/Vol] 8.9 mg/dL 7.6-11.0 [facility] Serum or plasma urea nitroge n measurement (mass/volume)Ordered By: Shayy Curtis on 09-28-2024 Urea nitrogen [Mass/Vol] 14 mg/dL 4-19 [facility] Sodium levelOrdered By: Latrice Curtis on 09-28-2024 Sodium [Moles/Vol] 140 mmol/L 133-145 [facility] White blood cell (WBC) count Ordered By: Shayy Curtis on 09-28-2024 WBC (Bld) [#/Vol] 7.0 10*3/uL 4.4-11.0 [facility] International normalized rat io (INR) measurement by fingerstickOrdered By: Shayy Curtis on 09-26-2024 INR Coag (BldC) [Relative time] 2.5 [facility] Comment on above: Critical Value > 4.0 Whole blood prothrombin time Ordered By: Shayy Curtis on 09-26-2024 PT Coag (Bld) [Time] 27.1 s High 11.7-14.9 [facility] International normalized rat io (INR) calculationOrdered By: Shayy Curtis on 09-23-2024 INR Coag (Bld) [Relative time] 2.0 {INR} [facility] Prothrombin timeOrdered By: Shayy Curtis on 09-23-2024 PT Coag (PPP) [Time] 23.5 s High 11.7-14.9 [facility] Absolute lymphocyte countOrd ered By: Shayy Curtis on 09-21-2024 Lymphocytes Auto (Unsp spec) [#/Vol] 1.35 10*3/uL 0.83-4.51 [facility] Absolute neutrophil countOrd ered By: holliefrancitasirlanda Curtis on 09-21-2024 Neutrophils (Bld) [#/Vol] 4.3 10*3/uL 2.0-7.7 [facility] Anion gap in Serum or Plasma Or[facility] By: [facility] on 09-21-2024 Anion gap [Moles/Vol] 12 mmol/L 5-15 [facility] Automated lymphocyte count a s percentage of total leukocytesOrdered By: holliefrancitasirlanda Salazarradha on 09-21-2024 Lymphocytes/100 WBC Auto (Unsp spec) 21.5 % 19-41 [facility] BUN/creatinine ratioOrdered By: [facility] on 09-21-2024 Urea nitrogen/Creatinine [Mass ratio] 15.8 mg/mg 10-20 [facility] Basophil percentageOrdered B y: [facility] Sal[facility]arrad[facility] on 09-21-2024 Basophils/100 WBC (Bld) 0.8 % 0-1 [facility] CNPNon [facility] ROBY FLORES ([id number]) 1935 M Date Time Provider Department 09/21/24 [facility] During your visit today, we recorded the following information about you: Ruthannzenaida Petty 09/21/2024 9:[address] [facility] rehabilitation. 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 Encounter Status:Closed by MARTA PALACIO on 09/22/24 [facility] Carbon dioxide, total [Moles /volume] in Central venous bloodOrdered By: Shayy Curtis on 09-21-2024 CO2 [Moles/Vol] 23.2 mmol/L 21.0-32.0 [facility] Chloride assayOrdered By: Hung Curtis on 09-21-2024 Chloride [Moles/Vol] 104 mmol/L 98-108 [facility] Eosinophil percentageOrdered By: Shayy Curtis on 09-21-2024 Eosinophils/100 WBC (Bld) 1.3 % 0-5 [facility] Erythrocyte distribution wid th ratioOrdered By: Shayy Curtis on 09-21-2024 Erythrocyte distribution width (RBC) [Ratio] 18.0 % High 11.6-14.6 [facility] Erythrocyte distribution wid th standard deviationOrdered By: Shayy Curtis on 09-21-2024 Erythrocyte distribution width (RBC) [Ratio] 50.8 fl High 35.1-43.9 [facility] Glomerular filtration rate ( GFR) estimation/1.73 sq m using serum, plasma, or whole bOrdered By: Shayy Curtis on 09-21-2024 GFR/1.73 sq M.predicted among non-blacks MDRD (S/P/Bld) [Vol rate/Area] 88 mL/min/{1.73_m2} >60 [facility] Comment on above: mL/min/1.73m2 CKD-EP I Creatinine Equation (2020) Hematocrit Auto (Bld) [Volum e fraction]Ordered By: Shayy Curtis on 09-21-2024 Hematocrit (Bld) [Volume fraction] 37.5 % Low 40-54 [facility] Hemoglobin measurementOrdere d By: Shayy Curtis on 09-21-2024 Hemoglobin (Bld) [Mass/Vol] 11.6 g/dL Low 13.0-16.5 [facility] Immature granulocytes/100 WB C Auto (Bld)Ordered By: Shayy Curtis on 09-21-2024 Immature granulocytes/100 WBC (Bld) 0.300 % 0.0-0.9 [facility] Comment on above: IG% - Immature Granu locytes (promyelocytes, myelocytes and metamyelocytes) > 1% indicates that a LEFT SHIFT is Present. International normalized rat io (INR) calculationOrdered By: Shayy Curtis on 09-21-2024 INR Coag (Bld) [Relative time] 1.7 {INR} [facility] MCV (mean corpuscular volume ) determinationOrdered By: Shayy Curtis 09-21-2024 MCV (RBC) [Entitic vol] 78.9 fL Low 80-94 [facility] Mean corpuscular hemoglobin (MCH) determinationOrdered By: holliefrancitasirlanda Curtis 09-21-2024 MCH (RBC) [Entitic mass] 24.4 pg Low 27.0-32.0 [facility] Mean corpuscular hemoglobin concentration (MCHC) determinationOrdered By: Shayy Curtis on 09-21-2024 MCHC (RBC) [Mass/Vol] 30.9 g/dL Low 32-36 [facility] Mean platelet volume determi nationOrdered By: Shayy Curtis on 09-21-2024 Platelet mean volume (Bld) [Entitic vol] 10.1 fL 6.2-12.0 [facility] Monocyte percentageOrdered B y: Shayy Curtis on 09-21-2024 Monocytes/100 WBC (Bld) 8.1 % 0-10 [facility] Neutrophil percentageOrdered By: Shayy Curtis on 09-21-2024 Neutrophils/100 WBC (Bld) 68.0 % 47-70 [facility] Nucleated red blood cell per centageOrdered By: Shayy Curtis on 09-21-2024 Nucleated RBC/100 WBC (Bld) [Ratio] 0 % 0-5 [facility] Platelet countOrdered By: Hung Curtis on 09-21-2024 Platelets (Bld) [#/Vol] 318 10*3/uL 150-450 [facility] Potassium measurement (mass/ volume)Ordered By: Shayy Curtis on 09-21-2024 Potassium (Unsp spec) [Mass/Vol] 4.0 mmol/L 3.3-5.1 [facility] Prothrombin timeOrdered By: Shayy Curtis on 09-21-2024 PT Coag (PPP) [Time] 20.6 s High 11.7-14.9 [facility] RBC Auto (Bld) [#/Vol]Ordere d By: Shayy Curtis on 09-21-2024 RBC (Bld) [#/Vol] 4.75 10*6/uL 4.6-6.2 [facility] Serum creatinine measurement (mass/volume)Ordered By: Shayy Curtis on 09-21-2024 Creatinine [Mass/Vol] 0.70 mg/dL 0.70-1.20 [facility] Serum glucose measurement (m ass/volume)Ordered By: Shayy Curtis on 09-21-2024 Glucose [Mass/Vol] 101 mg/dL High 70-99 [facility] Serum or plasma calcium alvaro urement (mass/volume)Ordered By: Shayy Curtis on 09-21-2024 Calcium [Mass/Vol] 9.2 mg/dL 7.6-11.0 [facility] Serum or plasma urea nitroge n measurement (mass/volume)Ordered By: Shayy Curtis on 09-21-2024 Urea nitrogen [Mass/Vol] 11 mg/dL 4-19 [facility] Sodium levelOrdered By: Latrice warner Ever on 09-21-2024 Sodium [Moles/Vol] 139 mmol/L 133-145 [facility] White blood cell (WBC) count Ordered By: Shayy Curtis on 09-21-2024 WBC (Bld) [#/Vol] 6.3 10*3/uL 4.4-11.0 [facility] International normalized rat io (INR) measurement by fingerstickOrdered By: Shayy Curtis on 09-19-2024 INR Coag (BldC) [Relative time] 1.9 [facility] Comment on above: Critical Value > 4.0 Whole blood prothrombin time Ordered By: Shayy Curtis on 09-19-2024 PT Coag (Bld) [Time] 21.5 s High 11.7-14.9 [facility] International normalized rat io (INR) calculationOrdered By: Shayy Curtis on 09-15-2024 INR Coag (Bld) [Relative time] 2.1 {INR} [facility] Prothrombin timeOrdered By: Shayy Curtis on 09-15-2024 PT Coag (PPP) [Time] 24.2 s High 11.7-14.9 [facility] Absolute lymphocyte countOrd ered By: Shayy Curtis on 09-14-2024 Lymphocytes Auto (Unsp spec) [#/Vol] 1.57 10*3/uL 0.83-4.51 [facility] Absolute neutrophil countOrd ered By: Shayy Curtis on 09-14-2024 Neutrophils (Bld) [#/Vol] 5.1 10*3/uL 2.0-7.7 [facility] Anion gap in Serum or Plasma Ordered By: Shayy Curtis on 09-14-2024 Anion gap [Moles/Vol] 12 mmol/L 5-15 [facility] Automated lymphocyte count a s percentage of total leukocytesOrdered By: Shayy Curtis on 09-14-2024 Lymphocytes/100 WBC Auto (Unsp spec) 20.8 % 19-41 [facility] BUN/creatinine ratioOrdered By: Shayy Curtis on 09-14-2024 Urea nitrogen/Creatinine [Mass ratio] 21.8 mg/mg High 10-20 [facility] Basophil percentageOrdered B y: Shayy Curtis on 09-14-2024 Basophils/100 WBC (Bld) 1.1 % High 0-1 [facility] Carbon dioxide, total [Moles /volume] in Central venous bloodOrdered By: Shayy Curtis on 09-14-2024 CO2 [Moles/Vol] 21.8 mmol/L 21.0-32.0 [facility] Chloride assayOrdered By: Hung Curtis on 09-14-2024 Chloride [Moles/Vol] 107 mmol/L 98-108 [facility] Eosinophil percentageOrdered By: Shayy Curtis on 09-14-2024 Eosinophils/100 WBC (Bld) 1.7 % 0-5 [facility] Erythrocyte distribution wid th ratioOrdered By: Shayy Curtis on 09-14-2024 Erythrocyte distribution width (RBC) [Ratio] 17.7 % High 11.6-14.6 [facility] Erythrocyte distribution wid th standard deviationOrdered By: Shayy Curtis on 09-14-2024 Erythrocyte distribution width (RBC) [Ratio] 51.1 fl High 35.1-43.9 [facility] Glomerular filtration rate ( GFR) estimation/1.73 sq m using serum, plasma, or whole bOrdered By: Shayy Curtis on 09-14-2024 GFR/1.73 sq M.predicted among non-blacks MDRD (S/P/Bld) [Vol rate/Area] 87 mL/min/{1.73_m2} >60 [facility] Comment on above: mL/min/1.73m2 CKD-EP I Creatinine Equation (2020) Hematocrit Auto (Bld) [Volum e fraction]Ordered By: Shayy Curtis on 09-14-2024 Hematocrit (Bld) [Volume fraction] 34.7 % Low 40-54 [facility] Hemoglobin measurementOrdere d By: Shayy Curtis on 09-14-2024 Hemoglobin (Bld) [Mass/Vol] 10.7 g/dL Low 13.0-16.5 [facility] Immature granulocytes/100 WB C Auto (Bld)Ordered By: Shayy Curtis on 09-14-2024 Immature granulocytes/100 WBC (Bld) 0.400 % 0.0-0.9 [facility] Comment on above: IG% - Immature Granu locytes (promyelocytes, myelocytes and metamyelocytes) > 1% indicates that a LEFT SHIFT is Present. MCV (mean corpuscular volume ) determinationOrdered By: Shayy Curtis on 09-14-2024 MCV (RBC) [Entitic vol] 78.9 fL Low 80-94 [facility] Mean corpuscular hemoglobin (MCH) determinationOrdered By: baldomero Curtis on 09-14-2024 MCH (RBC) [Entitic mass] 24.3 pg Low 27.0-32.0 [facility] Mean corpuscular hemoglobin concentration (MCHC) determinationOrdered By: Shayy Curtis on 09-14-2024 MCHC (RBC) [Mass/Vol] 30.8 g/dL Low 32-36 [facility] Mean platelet volume determi nationOrdered By: baldomero Curtis on 09-14-2024 Platelet mean volume (Bld) [Entitic vol] 10.6 fL 6.2-12.0 [facility] Monocyte percentageOrdered B y: Shayy Curtis on 09-14-2024 Monocytes/100 WBC (Bld) 8.5 % 0-10 [facility] Neutrophil percentageOrdered By: Shayy Curtis on 06-25-2025 Neutrophils/100 WBC (Bld) 67.5 % 47-70 [facility] Nucleated red blood cell per centageOrdered By: Latricerobsonirlanda Curtis on 09-14-2024 Nucleated RBC/100 WBC (Bld) [Ratio] 0 % 0-5 [facility] Platelet countOrdered By: Hung connorirlanda Salazartomyradha on 09-14-2024 Platelets (Bld) [#/Vol] 291 10*3/uL 150-450 [facility] Potassium measurement (mass/ volume)Ordered By: Shayy Curtis on 09-14-2024 Potassium (Unsp spec) [Mass/Vol] 4.0 mmol/L 3.3-5.1 [facility] RBC Auto (Bld) [#/Vol]Ordere d By: Shayy Curtis on 09-14-2024 RBC (Bld) [#/Vol] 4.40 10*6/uL Low 4.6-6.2 [facility] Serum creatinine measurement (mass/volume)Ordered By: Shayy Curtis on 09-14-2024 Creatinine [Mass/Vol] 0.74 mg/dL 0.70-1.20 [facility] Serum glucose measurement (m ass/volume)Ordered By: Shayy Curtis on 09-14-2024 Glucose [Mass/Vol] 99 mg/dL 70-99 [facility] Serum or plasma calcium alvaro urement (mass/volume)Ordered By: Shayy Curtis on 09-14-2024 Calcium [Mass/Vol] 8.6 mg/dL 7.6-11.0 [facility] Serum or plasma urea nitroge n measurement (mass/volume)Ordered By: Shayy Curtis on 09-14-2024 Urea nitrogen [Mass/Vol] 16 mg/dL 4-19 [facility] Sodium levelOrdered By: Latrice simonmaira Ever on 09-14-2024 Sodium [Moles/Vol] 141 mmol/L 133-145 [facility] White blood cell (WBC) count Ordered By: Shayy Curtis on 09-14-2024 WBC (Bld) [#/Vol] 7.5 10*3/uL 4.4-11.0 [facility] International normalized rat io (INR) measurement by fingerstickOrdered By: Shayy Curtis on 09-12-2024 INR Coag (BldC) [Relative time] 3.2 [facility] Comment on above: Critical Value > 4.0 Whole blood prothrombin time Ordered By: Shayy Curtis on 09-12-2024 PT Coag (Bld) [Time] 33.0 s High 11.7-14.9 [facility] International normalized rat io (INR) measurement by fingerstickOrdered By: Shayy Curtis on 09-08-2024 INR Coag (BldC) [Relative time] 2.2 [facility] Comment on above: Critical Value > 4.0 Prothrombin Time w/INRon INR Normal [facility] Comment on above: Result Comment: Canc elled via OM: Order cancelled - Patient discharged Performed By: #### L 300.3900 #### [facility] [address] [place], [place], [id number] [phone] PROTIME Normal 11.7-14.9 [facility] Comment on above: Result Comment: Canc elled via OM: Order cancelled - Patient discharged Performed By: #### L 300.3900 #### [facility] [address] [place], [place], [id number] [phone] Whole blood prothrombin time Ordered By: Shayy Curtis on 09-08-2024 PT Coag (Bld) [Time] 23.8 s High 11.7-14.9 [facility] Anion gap in Serum or Plasma Ordered By: Shayy Curtis on 09-07-2024 Anion gap [Moles/Vol] 10 mmol/L 5-15 [facility] BUN/creatinine ratioOrdered By: Shayy Curtis on 09-07-2024 Urea nitrogen/Creatinine [Mass ratio] 14.0 mg/mg 10-20 [facility] Bilirubin, totalOrdered By: Shayy Curtis on 09-07-2024 Bilirubin [Mass/Vol] 1.02 mg/dL 0.00-1.30 [facility] Calculated very low density lipoprotein (VLDL) cholesterol measurementOrdered By: Shayy Curtis on 09-07-2024 Calculated very low density lipoprotein (VLDL) cholesterol measurement 13 mg/dL 5-40 [facility] Carbon dioxide, total [Moles /volume] in Central venous bloodOrdered By: Shayy Curtis on 09-07-2024 CO2 [Moles/Vol] 25.4 mmol/L 21.0-32.0 [facility] Chloride assayOrdered By: Hung Curtis on 09-07-2024 Chloride [Moles/Vol] 104 mmol/L 98-108 [facility] Culture, Blood (WB)on 2024 CUB No growth in 5 days. Normal [facility] Comment on above: Performed By: #### M 200.1000, L509.7001, L101.9900, L501.6710 #### [facility] [address] [place] [address]. [place], [place], [id number] Glomerular filtration rate ( GFR) estimation/1.73 sq m using serum, plasma, or whole bOrdered By: Shayy Curtis on 09-07-2024 GFR/1.73 sq M.predicted among non-blacks MDRD (S/P/Bld) [Vol rate/Area] 88 mL/min/{1.73_m2} >60 [facility] Comment on above: mL/min/1.73m2 CKD-EP I Creatinine Equation (2020) LDL calc ser/plasOrdered By: Shayy Curtis on 09-07-2024 Cholesterol in LDL [Mass/Vol] 64 mg/dL [facility] Comment on above: Dyjzgecgfc=116-492 m g/dL & Higher Lova=852 mg/dL or greater Laboratory - Chemistry and C hemistry - challengeOrdered By: Shayy Curtis on 09-07-2024 AST [Catalytic activity/Vol] 33 U/L <38 [facility] Potassium measurement (mass/ volume)Ordered By: Shayy Curtis on 09-07-2024 Potassium (Unsp spec) [Mass/Vol] 3.8 mmol/L 3.3-5.1 [facility] Prothrombin Time w/INRon INR Normal [facility] Comment on above: Result Comment: Canc elled via OM: Order cancelled - Patient discharged Performed By: #### L 300.3900 #### [facility] [address] [place], [place], [id number] PROTIME Normal 11.7-14.9 [facility] Comment on above: Result Comment: Canc elled via OM: Order cancelled - Patient discharged Performed By: #### L 300.3900 #### [facility] [address] [place], [place], [id number] Screening total cholesterol/ high density lipoprotein (HDL) cholesterol ratioOrdered By: Shayy Curtis on 09-07-2024 Cholesterol.total/Cho lesterol in HDL [Mass ratio] 3.75 {ratio} [facility] Serum creatinine measurement (mass/volume)Ordered By: Shayy Curtis on 09-07-2024 Creatinine [Mass/Vol] 0.70 mg/dL 0.70-1.20 [facility] Serum globulin measurementOr dered By: Shayy Curtis on 09-07-2024 Globulin (S) [Mass/Vol] 2.5 g/dL 2.2-4.2 [facility] Serum glucose measurement (m ass/volume)Ordered By: Shayy Curtis on 09-07-2024 Glucose [Mass/Vol] 107 mg/dL High 70-99 [facility] Serum or plasma alanine franks otransferase (ALT) measurementOrdered By: Shayy Curtis on 09-07-2024 ALT [Catalytic activity/Vol] 23 U/L <47 [facility] Serum or plasma albumin alvaro urement (mass/volume)Ordered By: Shayy Curtis on 09-07-2024 Albumin [Mass/Vol] 3.7 g/dL 3.4-4.8 [facility] Serum or plasma albumin/glob ulin mass ratioOrdered By: Shayy Curtis on 09-07-2024 Albumin/Globulin [Mass ratio] 1.5 {ratio} 0.9-2.4 [facility] Serum or plasma alkaline carole sphatase measurementOrdered By: Hunghollierobsonirlanda Salazartomyradha 09-07-2024 ALP [Catalytic activity/Vol] 123 U/L 40-129 [facility] Serum or plasma calcium alvaro urement (mass/volume)Ordered By: Shayy Martintomyradha on 09-07-2024 Calcium [Mass/Vol] 8.7 mg/dL 7.6-11.0 [facility] Serum or plasma cholesterol in HDL measurement (mass/volume)Ordered By: Shayy Martintomyradha on 09-07-2024 Cholesterol in HDL [Mass/Vol] 28 mg/dL Low >40 [facility] Comment on above: National Cholesterol Education Program (NCEP) guidelines:<40 mg/dL: Low HDL-cholesterol (major risk factor for CHD)>= 60 mg/dL: High HDL-cholesterol (negative risk factor for CHD)HDL-cholesterol is affected by a number of factors, e.g. smoking, exercise, hormones, sex and age. Serum or plasma cholesterol measurement (mass/volume)Ordered By: Hunghollierobsonirlanda Salazartomyradha on 09-07-2024 Cholesterol [Mass/Vol] 105 mg/dL <201 [facility] Comment on above: Cholesterol level, D esirable <200 mg/dLBorderline high cholesterol 200-239 mg/dLHigh cholesterol >=240 mg/dLRecommendations of the NCEP Adult Treatment Panel for the following risk-cutoff thresholds for the [place] population. Serum or plasma urea nitroge n measurement (mass/volume)Ordered By: Shayy Curtis 09-07-2024 Urea nitrogen [Mass/Vol] 10 mg/dL 4-19 [facility] Sodium levelOrdered By: Latrice warner Martintomyradha on 09-07-2024 Sodium [Moles/Vol] 139 mmol/L 133-145 [facility] TSH DL <= 0.005 mIU/L QnOrde red By: Hunghollierobsonirlanda Salazartomyradha on 09-07-2024 TSH Qn 0.300 uIU/mL 0.300-4.20 0 [facility] Total proteinOrdered By: Yazan jessicairlanda Salazartomyradha 09-07-2024 Protein [Mass/Vol] 6.2 g/dL 5.9-8.4 [facility] Triglycerides measurementOrd ered By: Shayy Curtis on 09-07-2024 Triglyceride [Mass/Vol] 63 mg/dL <199 [facility] Comment on above: The drugs N-Acetylcy steine and Metamizole may falsely depress this assay. Normal range: <150 mg/dLBorderline High: 150-199 mg/dLHigh: 200-499 mg/dLVery High: >500 mg/dL Vitamin B12 ser/plasOrdered By: Shayy Curtis on 09-07-2024 Cobalamin (Vitamin B12) [Mass/Vol] 519 pg/mL 180-914 [facility] Absolute lymphocyte countOrd ered By: Navid Dominguez on 09-06-2024 Lymphocytes Auto (Unsp spec) [#/Vol] 1.28 10*3/uL 0.83-4.51 [facility] Absolute neutrophil countOrd ered By: Navid Dominguez on 09-06-2024 Neutrophils (Bld) [#/Vol] 5.2 10*3/uL 2.0-7.7 [facility] Anion gap in Serum or Plasma Ordered By: Navid Dominguez on 09-06-2024 Anion gap [Moles/Vol] 10 mmol/L 5-15 [facility] Automated blood erythrocyte countOrdered By: Navid Dominguez on 09-06-2024 RBC (Bld) [#/Vol] 4.39 10*6/uL Low 4.6-6.2 [facility] Comment on above: Performed By: #### L 100.0100, L500.2500, L300.3900 #### [facility] [address] [place], [address] Automated blood hematocrit ( percentage)Ordered By: Navid Dominguez on 09-06-2024 Hematocrit (Bld) [Volume fraction] 33.6 % Low 40-54 [facility] Comment on above: Performed By: #### L 100.0100, L500.2500, L300.3900 #### [facility] [address] [place], [address] Automated lymphocyte count a s percentage of total leukocytesOrdered By: Navid Dominguez on 09-06-2024 Lymphocytes/100 WBC Auto (Unsp spec) 16.4 % Low 19-41 [facility] BUN/creatinine ratioOrdered By: Navid Dominguez on 09-06-2024 Urea nitrogen/Creatinine [Mass ratio] 14.4 mg/mg 10-20 [facility] Basic Metabolic Profile (BMP )on 09-06-2024 BUN/CRE 14.4 RATIO Normal 10-20 [facility] Comment on above: Performed By: #### M 200.1000, L509.7001, L101.9900, L501.6710 #### [facility] [address] [place], [address] ECRCL 64.10 ml/min Normal 50-250 [facility] Comment on above: Performed By: #### M 200.1000, L509.7001, L101.9900, L501.6710 #### [facility] [address] [place], [address] GAP 10 Normal 5-15 [facility] Comment on above: Performed By: #### M 200.1000, L509.7001, L101.9900, L501.6710 #### [facility] [address] [place], [address] Potassium [Moles/Vol] 3.5 mmol/L Normal 3.3-5.1 [facility] Comment on above: Performed By: #### M 200.1000, L509.7001, L101.9900, L501.6710 #### [facility] [address] [place], [address] Basophil percentageOrdered B y: Navid Dominguez on 09-06-2024 Basophils/100 WBC (Bld) 1.0 % Normal 0-1 [facility] Comment on above: Performed By: #### L 100.0100, L500.2500, L300.3900 #### [facility] [address] [place], [address] CBC W/Diff, Automatedon 08-21 Absolute Lymph 1.28 X10 3/uL Normal 0.83-4.51 [facility] Comment on above: Performed By: #### L 100.0100, L500.2500, L300.3900 #### [facility] [address] [place], [address] Absolute Neut 5.2 X10 3/uL Normal 2.0-7.7 [facility] Comment on above: Performed By: #### L 100.0100, L500.2500, L300.3900 #### [facility] [address] [place], [address] IG% 0.400 Normal 0.0-0.9 [facility] Comment on above: Result Comment: IG% - Immature Granulocytes (promyelocytes, myelocytes and metamyelocytes) > 1% indicates that a LEFT SHIFT is Present. Performed By: #### L 100.0100, L500.2500, L300.3900 #### [facility] [address] [place], [address] Lymphocytes/100 WBC (Bld) 16.4 % Low 19-41 [facility] Comment on above: Performed By: #### L 100.0100, L500.2500, L300.3900 #### [facility] [address] [place], [address] Nucleated RBC (Bld) [#/Vol] 0 10*3/uL Normal 0-5 [facility] Comment on above: Performed By: #### L 100.0100, L500.2500, L300.3900 #### [facility] [address] [place], [address] RDW SD 48.2 fl High 35.1-43.9 [facility] Comment on above: Performed By: #### L 100.0100, L500.2500, L300.3900 #### [facility] [address] [place], [address] Carbon dioxide, total [Moles /volume] in Central venous bloodOrdered By: Navid Dominguez on 09-06-2024 CO2 [Moles/Vol] 24.9 mmol/L Normal 21.0-32.0 [facility] Comment on above: Performed By: #### M 200.1000, L509.7001, L101.9900, L501.6710 #### [facility] [address] [place], [address] Chloride assayOrdered By: Cameron Dominguez on 09-06-2024 Chloride [Moles/Vol] 106 mmol/L Normal 98-108 [facility] Comment on above: Performed By: #### M 200.1000, L509.7001, L101.9900, L501.6710 #### [facility] [address] [place], [address] Eosinophil percentageOrdered By: Navid Dominguez on 09-06-2024 Eosinophils/100 WBC (Bld) 6.3 % High 0-5 [facility] Comment on above: Performed By: #### L 100.0100, L500.2500, L300.3900 #### [facility] [address] [place], [address] Erythrocyte distribution wid th ratioOrdered By: Navid Dominguez on 09-06-2024 Erythrocyte distribution width (RBC) [Ratio] 17.4 % High 11.6-14.6 [facility] Comment on above: Performed By: #### L 100.0100, L500.2500, L300.3900 #### [facility] [address] [place], [address] Erythrocyte distribution wid th standard deviationOrdered By: Navid Dominguez on 09-06-2024 Erythrocyte distribution width (RBC) [Ratio] 48.2 fl High 35.1-43.9 [facility] Glomerular filtration rate ( GFR) estimation/1.73 sq m using serum, plasma, or whole bOrdered By: Navid Dominguez on 09-06-2024 GFR/1.73 sq M.predicted among non-blacks MDRD (S/P/Bld) [Vol rate/Area] 87 mL/min/{1.73_m2} Normal >60 [facility] Comment on above: mL/min/1.73m2 CKD-EP I Creatinine Equation (2020) Result Comment: mL/m in/1.73m2 CKD-EPI Creatinine Equation (2020) Performed By: #### M 200.1000, L509.7001, L101.9900, L501.6710 #### [facility] [address] [place], [place], [id number] Hemoglobin measurementOrdere d By: Navid Dominguez on 09-06-2024 Hemoglobin (Bld) [Mass/Vol] 10.8 g/dL Low 13.0-16.5 [facility] Comment on above: Performed By: #### L 100.0100, L500.2500, L300.3900 #### [facility] [address] [place], [place], [id number] Immature granulocytes/100 WB C Auto (Bld)Ordered By: Navid Dominguez on 09-06-2024 Immature granulocytes/100 WBC (Bld) 0.400 % 0.0-0.9 [facility] Comment on above: IG% - Immature Granu locytes (promyelocytes, myelocytes and metamyelocytes) > 1% indicates that a LEFT SHIFT is Present. International normalized rat io (INR) calculationOrdered By: Navid Dominguez on 09-06-2024 INR Coag (Bld) [Relative time] 2.4 {INR} [facility] MCV (mean corpuscular volume ) determinationOrdered By: Navid Dominguez on 09-06-2024 MCV (RBC) [Entitic vol] 76.5 fL Low 80-94 [facility] Comment on above: Performed By: #### L 100.0100, L500.2500, L300.3900 #### [facility] [address] [place], [address] Mean corpuscular hemoglobin (MCH) determinationOrdered By: Navid Dominguez on 09-06-2024 MCH (RBC) [Entitic mass] 24.6 pg Low 27.0-32.0 [facility] Comment on above: Performed By: #### L 100.0100, L500.2500, L300.3900 #### [facility] [address] [place], [address] Mean corpuscular hemoglobin concentration (MCHC) determinationOrdered By: Navid Dominguez on 09-06-2024 MCHC (RBC) [Mass/Vol] 32.1 g/dL Normal 32-36 [facility] Comment on above: Performed By: #### L 100.0100, L500.2500, L300.3900 #### [facility] [address] [place], [address] Mean platelet volume determi nationOrdered By: Navid Dominguez on 09-06-2024 Platelet mean volume (Bld) [Entitic vol] 9.4 fL Normal 6.2-12.0 [facility] Comment on above: Performed By: #### L 100.0100, L500.2500, L300.3900 #### [facility] [address] [place], [address] Monocyte percentageOrdered B y: Navid Dominguez on 09-06-2024 Monocytes/100 WBC (Bld) 9.1 % Normal 0-10 [facility] Comment on above: Performed By: #### L 100.0100, L500.2500, L300.3900 #### [facility] [address] [place], [address] Neutrophil percentageOrdered By: Navid Dominguez on 09-06-2024 Neutrophils/100 WBC (Bld) 66.8 % Normal 47-70 [facility] Comment on above: Performed By: #### L 100.0100, L500.2500, L300.3900 #### [facility] [address] [place], [address] Nucleated red blood cell per centageOrdered By: Navid Dominguez on 09-06-2024 Nucleated RBC/100 WBC (Bld) [Ratio] 0 % 0-5 [facility] Platelet countOrdered By: Cameron Dominguez on 09-06-2024 Platelets (Bld) [#/Vol] 325 10*3/uL Normal 150-450 [facility] Comment on above: Performed By: #### L 100.0100, L500.2500, L300.3900 #### [facility] [address] [place], [address] Potassium measurement (mass/ volume)Ordered By: Navid Dominguez on 09-06-2024 Potassium (Unsp spec) [Mass/Vol] 3.5 mmol/L 3.3-5.1 [facility] Prothrombin Time w/INRon INR Coag (PPP) [Relative time] 2.4 {INR} Normal [facility] Comment on above: Performed By: #### M 200.1000, L509.7001, L101.9900, L501.6710 #### [facility] [address] [place], [address] Prothrombin timeOrdered By: Navid Dominguez on 09-06-2024 PT Coag (PPP) [Time] 27.0 s High 11.7-14.9 [facility] Comment on above: Performed By: #### M 200.1000, L509.7001, L101.9900, L501.6710 #### [facility] [address] [place], [address] Serum creatinine measurement (mass/volume)Ordered By: Navid Dominguez on 09-06-2024 Creatinine [Mass/Vol] 0.73 mg/dL Normal 0.70-1.20 [facility] Comment on above: Performed By: #### M 200.1000, L509.7001, L101.9900, L501.6710 #### [facility] [address] [place], [address] Serum glucose measurement (m ass/volume)Ordered By: Navid Dominguez on 09-06-2024 Glucose [Mass/Vol] 109 mg/dL High 70-99 [facility] Comment on above: Performed By: #### M 200.1000, L509.7001, L101.9900, L501.6710 #### [facility] [address] [place], [address] Serum or plasma calcium alvaro urement (mass/volume)Ordered By: Navid Dominguez on 09-06-2024 Calcium [Mass/Vol] 8.7 mg/dL Normal 7.6-11.0 [facility] Comment on above: Performed By: #### M 200.1000, L509.7001, L101.9900, L501.6710 #### [facility] [address] [place], [address] Serum or plasma urea nitroge n measurement (mass/volume)Ordered By: Navid Dominguez on 09-06-2024 Urea nitrogen [Mass/Vol] 11 mg/dL Normal 4-19 [facility] Comment on above: Performed By: #### M 200.1000, L509.7001, L101.9900, L501.6710 #### [facility] [address] [place], [address] Sodium levelOrdered By: Kamilah Dominguez on 09-06-2024 Sodium [Moles/Vol] 141 mmol/L Normal 133-145 [facility] Comment on above: Performed By: #### M 200.1000, L509.7001, L101.9900, L501.6710 #### [facility] [address] [place], [address] White blood cell (WBC) count Ordered By: Navid Dominguez on 09-06-2024 WBC (Bld) [#/Vol] 7.8 10*3/uL Normal 4.4-11.0 [facility] Comment on above: Performed By: #### L 100.0100, L500.2500, L300.3900 #### [facility] [address] [place], [address] Basic Metabolic Profile (BMP )on 09-05-2024 BUN/CRE 13.4 RATIO Normal 10-20 [facility] Comment on above: Performed By: #### M 200.1000, L509.7001, L101.9900, L501.6710 #### [facility] [address] [place], [address] Calcium [Mass/Vol] 8.6 mg/dL Normal 7.6-11.0 [facility] Comment on above: Performed By: #### M 200.1000, L509.7001, L101.9900, L501.6710 #### [facility] [address] [place], [address] Chloride [Moles/Vol] 105 mmol/L Normal 98-108 [facility] Comment on above: Performed By: #### M 200.1000, L509.7001, L101.9900, L501.6710 #### [facility] [address] [place], [address] CO2 [Moles/Vol] 21.9 mmol/L Normal 21.0-32.0 [facility] Comment on above: Performed By: #### M 200.1000, L509.7001, L101.9900, L501.6710 #### [facility] [address] [place], [address] Creatinine [Mass/Vol] 0.62 mg/dL Low 0.70-1.20 [facility] Comment on above: Performed By: #### M 200.1000, L509.7001, L101.9900, L501.6710 #### [facility] [address] [place], [address] ECRCL 64.10 ml/min Normal 50-250 [facility] Comment on above: Performed By: #### M 200.1000, L509.7001, L101.9900, L501.6710 #### [facility] [address] [place], [address] GAP 12 Normal 5-15 [facility] Comment on above: Performed By: #### M 200.1000, L509.7001, L101.9900, L501.6710 #### [facility] [address] [place], [address] GFR/1.73 sq M.predicted among non-blacks MDRD (S/P/Bld) [Vol rate/Area] 91 mL/min/{1.73_m2} Normal >60 [facility] Comment on above: Result Comment: mL/m in/1.73m2 CKD-EPI Creatinine Equation (2020) Performed By: #### M 200.1000, L509.7001, L101.9900, L501.6710 #### [facility] [address] [place], [address] Glucose [Mass/Vol] 119 mg/dL High 70-99 [facility] Comment on above: Performed By: #### M 200.1000, L509.7001, L101.9900, L501.6710 #### [facility] [address] [place], [address] Potassium [Moles/Vol] 3.3 mmol/L Normal 3.3-5.1 [facility] Comment on above: Performed By: #### M 200.1000, L509.7001, L101.9900, L501.6710 #### [facility] [address] [place], [address] Sodium [Moles/Vol] 139 mmol/L Normal 133-145 [facility] Comment on above: Performed By: #### M 200.1000, L509.7001, L101.9900, L501.6710 #### [facility] [address] [place], [address] Urea nitrogen [Mass/Vol] 8 mg/dL Normal 4-19 [facility] Comment on above: Performed By: #### M 200.1000, L509.7001, L101.9900, L501.6710 #### [facility] [address] [place], [address] Bilirubin Test strip Ql (U)O rdered By: Marta Black on 09-05-2024 Bilirubin Ql (U) Negative Negative [facility] CBC W/Diff, Automatedon 08-21 Absolute Lymph 0.96 X10 3/uL Normal 0.83-4.51 [facility] Comment on above: Performed By: #### M 200.1000, L509.7001, L101.9900, L501.6710 #### [facility] [address] [place], [address] Absolute Neut 7.6 X10 3/uL Normal 2.0-7.7 [facility] Comment on above: Performed By: #### M 200.1000, L509.7001, L101.9900, L501.6710 #### [facility] [address] [place], [address] Basophils/100 WBC (Bld) 0.7 % Normal 0-1 [facility] Comment on above: Performed By: #### M 200.1000, L509.7001, L101.9900, L501.6710 #### [facility] [address] [place], [address] Eosinophils/100 WBC (Bld) 4.0 % Normal 0-5 [facility] Comment on above: Performed By: #### M 200.1000, L509.7001, L101.9900, L501.6710 #### [facility] [address] [place], [address] Erythrocyte distribution width (RBC) [Ratio] 17.6 % High 11.6-14.6 [facility] Comment on above: Performed By: #### M 200.1000, L509.7001, L101.9900, L501.6710 #### [facility] [address] [place], [address] Hematocrit (Bld) [Volume fraction] 35.3 % Low 40-54 [facility] Comment on above: Performed By: #### M 200.1000, L509.7001, L101.9900, L501.6710 #### [facility] [address] [place], [address] Hemoglobin (Bld) [Mass/Vol] 11.3 g/dL Low 13.0-16.5 [facility] Comment on above: Performed By: #### M 200.1000, L509.7001, L101.9900, L501.6710 #### [facility] [address] [place], [address] IG% 0.400 Normal 0.0-0.9 [facility] Comment on above: Result Comment: IG% - Immature Granulocytes (promyelocytes, myelocytes and metamyelocytes) > 1% indicates that a LEFT SHIFT is Present. Performed By: #### M 200.1000, L509.7001, L101.9900, L501.6710 #### [facility] [address] [place], [address] Lymphocytes/100 WBC (Bld) 9.8 % Low 19-41 [facility] Comment on above: Performed By: #### M 200.1000, L509.7001, L101.9900, L501.6710 #### [facility] [address] [place], [address] MCH (RBC) [Entitic mass] 24.4 pg Low 27.0-32.0 [facility] Comment on above: Performed By: #### M 200.1000, L509.7001, L101.9900, L501.6710 #### [facility] [address] [place], [address] MCHC (RBC) [Mass/Vol] 32.0 g/dL Normal 32-36 [facility] Comment on above: Performed By: #### M 200.1000, L509.7001, L101.9900, L501.6710 #### [facility] [address] [place], [address] MCV (RBC) [Entitic vol] 76.2 fL Low 80-94 [facility] Comment on above: Performed By: #### M 200.1000, L509.7001, L101.9900, L501.6710 #### [facility] [address] [place], [address] Monocytes/100 WBC (Bld) 7.9 % Normal 0-10 [facility] Comment on above: Performed By: #### M 200.1000, L509.7001, L101.9900, L501.6710 #### [facility] [address] [place], [address] Neutrophils/100 WBC (Bld) 77.2 % High 47-70 [facility] Comment on above: Performed By: #### M 200.1000, L509.7001, L101.9900, L501.6710 #### [facility] [address] [place], [address] Nucleated RBC (Bld) [#/Vol] 0 10*3/uL Normal 0-5 [facility] Comment on above: Performed By: #### M 200.1000, L509.7001, L101.9900, L501.6710 #### [facility] [address] [place], [address] Platelet mean volume (Bld) [Entitic vol] 9.3 fL Normal 6.2-12.0 [facility] Comment on above: Performed By: #### M 200.1000, L509.7001, L101.9900, L501.6710 #### [facility] [address] [place], [address] Platelets (Bld) [#/Vol] 329 10*3/uL Normal 150-450 [facility] Comment on above: Performed By: #### M 200.1000, L509.7001, L101.9900, L501.6710 #### [facility] [address] [place], [address] RBC (Bld) [#/Vol] 4.63 10*6/uL Normal 4.6-6.2 [facility] Comment on above: Performed By: #### M 200.1000, L509.7001, L101.9900, L501.6710 #### [facility] [address] [place], [address] RDW SD 47.9 fl High 35.1-43.9 [facility] Comment on above: Performed By: #### M 200.1000, L509.7001, L101.9900, L501.6710 #### [facility] [address] [place], [address] WBC (Bld) [#/Vol] 9.8 10*3/uL Normal 4.4-11.0 [facility] Comment on above: Performed By: #### M 200.1000, L509.7001, L101.9900, L501.6710 #### [facility] [address] [place], [address] Ketones Test strip Ql (U)Ord ered By: Marta Black on 09-05-2024 Ketones Ql (U) Negative Negative [facility] Microscopic analysis of urin e for red blood cells (RBC)Ordered By: Marta Black on 09-05-2024 Microscopic analysis of urine for red blood cells (RBC) 0-5 SEEN /hpf 0-5 [facility] Mucus LM Ql (Urine sed)Order ed By: Marta Black on 09-05-2024 Mucus Ql (Urine sed) 0 SEEN /hpf [facility] Nitrite Test strip Ql (U)Ord ered By: Marta Black on 09-05-2024 Nitrite Ql (U) Negative Negative [facility] Protein Test strip Ql (U)Ord ered By: Marta Black on 09-05-2024 Protein Ql (U) 15 mg/dl High Negative [facility] Prothrombin Time w/INRon INR Coag (PPP) [Relative time] 2.2 {INR} Normal [facility] Comment on above: Performed By: #### M 200.1000, L509.7001, L101.9900, L501.6710 #### [facility] [address] [place], [address] PT Coag (PPP) [Time] 24.7 s High 11.7-14.9 [facility] Comment on above: Performed By: #### M 200.1000, L509.7001, L101.9900, L501.6710 #### [facility] [address] [place], [address] Squamous epithelial cells de tection in urine sediment by light microscopyOrdered By: Marta Black on 09-05-2024 Epithelial cells.squamous LM Ql (Urine sed) 0 SEEN /hpf 0-5 [facility] Urinalysis, Completeon 09-05 BACTERIA RARE Normal None Seen [facility] Comment on above: Order Comment: CLEAN CATCH Performed By: #### M 200.1000, L509.7001, L101.9900, L501.6710 #### [facility] [address] [place], [address] RBC 0-5 SEEN Normal 0-5 [facility] Comment on above: Order Comment: CLEAN CATCH Performed By: #### M 200.1000, L509.7001, L101.9900, L501.6710 #### [facility] [address] [place], [address] WBC 0-5 SEEN Normal 0-5 [facility] Comment on above: Order Comment: CLEAN CATCH Performed By: #### M 200.1000, L509.7001, L101.9900, L501.6710 #### [facility] [address] [place], [address] BILIRUBIN URINE Negative Normal Negative [facility] Comment on above: Order Comment: CLEAN CATCH Performed By: #### M 200.1000, L509.7001, L101.9900, L501.6710 #### [facility] [address] [place], [address] Clarity (U) Clear Normal Clear [facility] Comment on above: Order Comment: CLEAN CATCH Performed By: #### M 200.1000, L509.7001, L101.9900, L501.6710 #### [facility] [address] [place], [address] Color (U) Straw Normal Yellow [facility] Comment on above: Order Comment: CLEAN CATCH Performed By: #### M 200.1000, L509.7001, L101.9900, L501.6710 #### [facility] [address] [place], [address] GLUCOSE, UR Normal Normal Normal [facility] Comment on above: Order Comment: CLEAN CATCH Performed By: #### M 200.1000, L509.7001, L101.9900, L501.6710 #### [facility] [address] [place], [address] KETONE UR Negative Normal Negative [facility] Comment on above: Order Comment: CLEAN CATCH Performed By: #### M 200.1000, L509.7001, L101.9900, L501.6710 #### [facility] [address] [place], [address] LEUK ESTERASE Negative Normal Negative [facility] Comment on above: Order Comment: CLEAN CATCH Performed By: #### M 200.1000, L509.7001, L101.9900, L501.6710 #### [facility] [address] [place], [address] Nitrite Ql (U) Negative Normal Negative [facility] Comment on above: Order Comment: CLEAN CATCH Performed By: #### M 200.1000, L509.7001, L101.9900, L501.6710 #### [facility] [address] [place], [address] OCCULT BLOOD-UR 25 /ul Abnormal Negative [facility] Comment on above: Order Comment: CLEAN CATCH Performed By: #### M 200.1000, L509.7001, L101.9900, L501.6710 #### [facility] [address] [place], [address] pH UR 7.0 Normal 5.0 - 8.0 [facility] Comment on above: Order Comment: CLEAN CATCH Performed By: #### M 200.1000, L509.7001, L101.9900, L501.6710 #### [facility] [address] [place], [address] PROT DIPSTX 15 mg/dl Abnormal Negative [facility] Comment on above: Order Comment: CLEAN CATCH Performed By: #### M 200.1000, L509.7001, L101.9900, L501.6710 #### [facility] [address] [place], [address] SP.GR. DIPSTX 1.005 Normal 1.002-1.03 0 [facility] Comment on above: Order Comment: CLEAN CATCH Performed By: #### M 200.1000, L509.7001, L101.9900, L501.6710 #### [facility] [address] [place], [address] UROBILI Normal Normal Normal [facility] Comment on above: Order Comment: CLEAN CATCH Performed By: #### M 200.1000, L509.7001, L101.9900, L501.6710 #### [facility] [address] [place], [address] EPI,SQUAMOUS 0 SEEN Normal 0-5 [facility] Comment on above: Order Comment: CLEAN CATCH Performed By: #### M 200.1000, L509.7001, L101.9900, L501.6710 #### [facility] [address] [place], [address] Mucus Ql (Urine sed) 0 SEEN Normal [facility] Comment on above: Order Comment: CLEAN CATCH Performed By: #### M 200.1000, L509.7001, L101.9900, L501.6710 #### [facility] [address] [place], [address] Urine clarityOrdered By: Magnolia Black on 09-05-2024 Clarity (U) Clear Clear [facility] Urine color determinationOrd ered By: Marta Black on 09-05-2024 Color (U) Straw Yellow [facility] Urine glucose detectionOrder ed By: Marta Black on 09-05-2024 Glucose Ql (U) Normal mg/dl Normal [facility] Urine leukocyte esterase det ection by dipstickOrdered By: Marta Black on 09-05-2024 Leukocyte esterase Test strip Ql (U) Negative Negative [facility] Urine pHOrdered By: Marta Black on 09-05-2024 pH (U) 7.0 [pH] 5.0 - 8.0 [facility] Urine sediment bacteria coun t by microscopy (number/high power field)Ordered By: Marta Black on 09-05-2024 Bacteria LM.HPF (Urine sed) [#/Area] RARE /hpf None Seen [facility] Urine specific gravity measu rementOrdered By: Marta Black on 09-05-2024 Specific gravity (U) [Rel density] 1.005 1.002-1.03 0 [facility] Urine urobilinogen measureme ntOrdered By: Marta Black on 09-05-2024 Urobilinogen Ql (U) Normal mg/dl Normal [facility] White blood cell countOrdere d By: Marta Black on 09-05-2024 White blood cell count 0-5 SEEN /hpf 0-5 [facility] Basic Metabolic Profile (BMP )on 09-04-2024 BUN/CRE 17.3 RATIO Normal 10-20 [facility] Comment on above: Performed By: #### M 200.1000, L509.7001, L101.9900, L501.6710 #### [facility] [address] [place], [address] Calcium [Mass/Vol] 8.2 mg/dL Normal 7.6-11.0 [facility] Comment on above: Performed By: #### M 200.1000, L509.7001, L101.9900, L501.6710 #### [facility] [address] [place], [address] Chloride [Moles/Vol] 107 mmol/L Normal 98-108 [facility] Comment on above: Performed By: #### M 200.1000, L509.7001, L101.9900, L501.6710 #### [facility] [address] [place], [address] CO2 [Moles/Vol] 20.9 mmol/L Low 21.0-32.0 [facility] Comment on above: Performed By: #### M 200.1000, L509.7001, L101.9900, L501.6710 #### [facility] [address] [place], [address] Creatinine [Mass/Vol] 0.72 mg/dL Normal 0.70-1.20 [facility] Comment on above: Performed By: #### M 200.1000, L509.7001, L101.9900, L501.6710 #### [facility] [address] [place], [address] ECRCL 64.10 ml/min Normal 50-250 [facility] Comment on above: Performed By: #### M 200.1000, L509.7001, L101.9900, L501.6710 #### [facility] [address] [place], [address] GAP 11 Normal 5-15 [facility] Comment on above: Performed By: #### M 200.1000, L509.7001, L101.9900, L501.6710 #### [facility] [address] [place], [address] GFR/1.73 sq M.predicted among non-blacks MDRD (S/P/Bld) [Vol rate/Area] 87 mL/min/{1.73_m2} Normal >60 [facility] Comment on above: Result Comment: mL/m in/1.73m2 CKD-EPI Creatinine Equation (2020) Performed By: #### M 200.1000, L509.7001, L101.9900, L501.6710 #### [facility] [address] [place], [address] Glucose [Mass/Vol] 120 mg/dL High 70-99 [facility] Comment on above: Performed By: #### M 200.1000, L509.7001, L101.9900, L501.6710 #### [facility] [address] [place], [address] Potassium [Moles/Vol] 3.5 mmol/L Normal 3.3-5.1 [facility] Comment on above: Performed By: #### M 200.1000, L509.7001, L101.9900, L501.6710 #### [facility] [address] [place], [address] Sodium [Moles/Vol] 139 mmol/L Normal 133-145 [facility] Comment on above: Performed By: #### M 200.1000, L509.7001, L101.9900, L501.6710 #### [facility] [address] [place], [address] Urea nitrogen [Mass/Vol] 12 mg/dL Normal 4-19 [facility] Comment on above: Performed By: #### M 200.1000, L509.7001, L101.9900, L501.6710 #### [facility] [address] [place], [address] CBC W/Diff, Automatedon 08-21 Absolute Lymph 0.89 X10 3/uL Normal 0.83-4.51 [facility] Comment on above: Performed By: #### M 200.1000, L509.7001, L101.9900, L501.6710 #### [facility] [address] [place], [address] Absolute Neut 8.9 X10 3/uL High 2.0-7.7 [facility] Comment on above: Performed By: #### M 200.1000, L509.7001, L101.9900, L501.6710 #### [facility] [address] [place], [address] Basophils/100 WBC (Bld) 0.8 % Normal 0-1 [facility] Comment on above: Performed By: #### M 200.1000, L509.7001, L101.9900, L501.6710 #### [facility] [address] [place], [address] Eosinophils/100 WBC (Bld) 5.3 % High 0-5 [facility] Comment on above: Performed By: #### M 200.1000, L509.7001, L101.9900, L501.6710 #### [facility] [address] [place], [address] Erythrocyte distribution width (RBC) [Ratio] 17.5 % High 11.6-14.6 [facility] Comment on above: Performed By: #### M 200.1000, L509.7001, L101.9900, L501.6710 #### [facility] [address] [place], [address] Hematocrit (Bld) [Volume fraction] 33.3 % Low 40-54 [facility] Comment on above: Performed By: #### M 200.1000, L509.7001, L101.9900, L501.6710 #### [facility] [address] [place], [address] Hemoglobin (Bld) [Mass/Vol] 10.7 g/dL Low 13.0-16.5 [facility] Comment on above: Performed By: #### M 200.1000, L509.7001, L101.9900, L501.6710 #### [facility] [address] [place], [address] IG% 0.400 Normal 0.0-0.9 [facility] Comment on above: Result Comment: IG% - Immature Granulocytes (promyelocytes, myelocytes and metamyelocytes) > 1% indicates that a LEFT SHIFT is Present. Performed By: #### M 200.1000, L509.7001, L101.9900, L501.6710 #### [facility] [address] [place], [address] Lymphocytes/100 WBC (Bld) 7.8 % Low 19-41 [facility] Comment on above: Performed By: #### M 200.1000, L509.7001, L101.9900, L501.6710 #### [facility] [address] [place], [address] MCH (RBC) [Entitic mass] 24.6 pg Low 27.0-32.0 [facility] Comment on above: Performed By: #### M 200.1000, L509.7001, L101.9900, L501.6710 #### [facility] [address] [place], [address] MCHC (RBC) [Mass/Vol] 32.1 g/dL Normal 32-36 [facility] Comment on above: Performed By: #### M 200.1000, L509.7001, L101.9900, L501.6710 #### [facility] [address] [place], [address] MCV (RBC) [Entitic vol] 76.6 fL Low 80-94 [facility] Comment on above: Performed By: #### M 200.1000, L509.7001, L101.9900, L501.6710 #### [facility] [address] [place], [address] Monocytes/100 WBC (Bld) 7.7 % Normal 0-10 [facility] Comment on above: Performed By: #### M 200.1000, L509.7001, L101.9900, L501.6710 #### [facility] [address] [place], [address] Neutrophils/100 WBC (Bld) 78.0 % High 47-70 [facility] Comment on above: Performed By: #### M 200.1000, L509.7001, L101.9900, L501.6710 #### [facility] [address] [place], [address] Nucleated RBC (Bld) [#/Vol] 0 10*3/uL Normal 0-5 [facility] Comment on above: Performed By: #### M 200.1000, L509.7001, L101.9900, L501.6710 #### [facility] [address] [place], [address] Platelet mean volume (Bld) [Entitic vol] 10.6 fL Normal 6.2-12.0 [facility] Comment on above: Performed By: #### M 200.1000, L509.7001, L101.9900, L501.6710 #### [facility] [address] [place], [address] Platelets (Bld) [#/Vol] 305 10*3/uL Normal 150-450 [facility] Comment on above: Performed By: #### M 200.1000, L509.7001, L101.9900, L501.6710 #### [facility] [address] [place], [address] RBC (Bld) [#/Vol] 4.35 10*6/uL Low 4.6-6.2 [facility] Comment on above: Performed By: #### M 200.1000, L509.7001, L101.9900, L501.6710 #### [facility] [address] [place], [address] RDW SD 48.3 fl High 35.1-43.9 [facility] Comment on above: Performed By: #### M 200.1000, L509.7001, L101.9900, L501.6710 #### [facility] [address] [place], [address] WBC (Bld) [#/Vol] 11.4 10*3/uL High 4.4-11.0 [facility] Comment on above: Performed By: #### M 200.1000, L509.7001, L101.9900, L501.6710 #### [facility] [address] [place], [address] Prothrombin Time w/INRon INR Coag (PPP) [Relative time] 1.9 {INR} Normal [facility] Comment on above: Performed By: #### L 300.3900 #### [facility] [address] [place], [address] PT Coag (PPP) [Time] 21.8 s High 11.7-14.9 [facility] Comment on above: Performed By: #### L 300.3900 #### [facility] [address] [place], [address] Basic Metabolic Profile (BMP )on 09-03-2024 BUN/CRE 13.3 RATIO Normal 10-20 [facility] Comment on above: Performed By: #### M 200.1000, L509.7001, L101.9900, L501.6710 #### [facility] [address] [place], [address] Calcium [Mass/Vol] 8.5 mg/dL Normal 7.6-11.0 [facility] Comment on above: Performed By: #### M 200.1000, L509.7001, L101.9900, L501.6710 #### [facility] [address] [place], [address] Chloride [Moles/Vol] 104 mmol/L Normal 98-108 [facility] Comment on above: Performed By: #### M 200.1000, L509.7001, L101.9900, L501.6710 #### [facility] [address] [place], [address] CO2 [Moles/Vol] 19.1 mmol/L Low 21.0-32.0 [facility] Comment on above: Performed By: #### M 200.1000, L509.7001, L101.9900, L501.6710 #### [facility] [address] [place], [address] Creatinine [Mass/Vol] 0.74 mg/dL Normal 0.70-1.20 [facility] Comment on above: Performed By: #### M 200.1000, L509.7001, L101.9900, L501.6710 #### [facility] [address] [place], [address] ECRCL 64.10 ml/min Normal 50-250 [facility] Comment on above: Performed By: #### M 200.1000, L509.7001, L101.9900, L501.6710 #### [facility] [address] [place], [address] GAP 13 Normal 5-15 [facility] Comment on above: Performed By: #### M 200.1000, L509.7001, L101.9900, L501.6710 #### [facility] [address] [place], [address] GFR/1.73 sq M.predicted among non-blacks MDRD (S/P/Bld) [Vol rate/Area] 87 mL/min/{1.73_m2} Normal >60 [facility] Comment on above: Result Comment: mL/m in/1.73m2 CKD-EPI Creatinine Equation (2020) Performed By: #### M 200.1000, L509.7001, L101.9900, L501.6710 #### [facility] [address] [place], [address] Glucose [Mass/Vol] 111 mg/dL High 70-99 [facility] Comment on above: Performed By: #### M 200.1000, L509.7001, L101.9900, L501.6710 #### [facility] [address] [place], [address] Potassium [Moles/Vol] 3.5 mmol/L Normal 3.3-5.1 [facility] Comment on above: Performed By: #### M 200.1000, L509.7001, L101.9900, L501.6710 #### [facility] [address] [place], [address] Sodium [Moles/Vol] 137 mmol/L Normal 133-145 [facility] Comment on above: Performed By: #### M 200.1000, L509.7001, L101.9900, L501.6710 #### [facility] [address] [place], [address] Urea nitrogen [Mass/Vol] 10 mg/dL Normal 4-19 [facility] Comment on above: Performed By: #### M 200.1000, L509.7001, L101.9900, L501.6710 #### [facility] [address] [place], [address] CBC W/Diff, Automatedon 06-03 26-2024 Absolute Lymph 0.82 X10 3/uL Low 0.83-4.51 [facility] Comment on above: Performed By: #### M 200.1000, L509.7001, L101.9900, L501.6710 #### [facility] [address] [place], [address] Absolute Neut 10.2 X10 3/uL High 2.0-7.7 [facility] Comment on above: Performed By: #### M 200.1000, L509.7001, L101.9900, L501.6710 #### [facility] [address] [place], [address] Basophils/100 WBC (Bld) 0.7 % Normal 0-1 [facility] Comment on above: Performed By: #### M 200.1000, L509.7001, L101.9900, L501.6710 #### [facility] [address] [place], [address] Eosinophils/100 WBC (Bld) 2.8 % Normal 0-5 [facility] Comment on above: Performed By: #### M 200.1000, L509.7001, L101.9900, L501.6710 #### [facility] [address] [place], [address] Erythrocyte distribution width (RBC) [Ratio] 17.5 % High 11.6-14.6 [facility] Comment on above: Performed By: #### M 200.1000, L509.7001, L101.9900, L501.6710 #### [facility] [address] [place], [address] Hematocrit (Bld) [Volume fraction] 35.6 % Low 40-54 [facility] Comment on above: Performed By: #### M 200.1000, L509.7001, L101.9900, L501.6710 #### [facility] [address] [place], [address] Hemoglobin (Bld) [Mass/Vol] 11.3 g/dL Low 13.0-16.5 [facility] Comment on above: Performed By: #### M 200.1000, L509.7001, L101.9900, L501.6710 #### [facility] [address] [place], [address] IG% 0.400 Normal 0.0-0.9 [facility] Comment on above: Result Comment: IG% - Immature Granulocytes (promyelocytes, myelocytes and metamyelocytes) > 1% indicates that a LEFT SHIFT is Present. Performed By: #### M 200.1000, L509.7001, L101.9900, L501.6710 #### [facility] [address] [place], [address] Lymphocytes/100 WBC (Bld) 6.7 % Low 19-41 [facility] Comment on above: Performed By: #### M 200.1000, L509.7001, L101.9900, L501.6710 #### [facility] [address] [place], [address] MCH (RBC) [Entitic mass] 24.7 pg Low 27.0-32.0 [facility] Comment on above: Performed By: #### M 200.1000, L509.7001, L101.9900, L501.6710 #### [facility] [address] [place], [address] MCHC (RBC) [Mass/Vol] 31.7 g/dL Low 32-36 [facility] Comment on above: Performed By: #### M 200.1000, L509.7001, L101.9900, L501.6710 #### [facility] [address] [place], [address] MCV (RBC) [Entitic vol] 77.7 fL Low 80-94 [facility] Comment on above: Performed By: #### M 200.1000, L509.7001, L101.9900, L501.6710 #### [facility] [address] [place], [address] Monocytes/100 WBC (Bld) 6.0 % Normal 0-10 [facility] Comment on above: Performed By: #### M 200.1000, L509.7001, L101.9900, L501.6710 #### [facility] [address] [place], [address] Neutrophils/100 WBC (Bld) 83.4 % High 47-70 [facility] Comment on above: Performed By: #### M 200.1000, L509.7001, L101.9900, L501.6710 #### [facility] [address] [place], [address] Nucleated RBC (Bld) [#/Vol] 0 10*3/uL Normal 0-5 [facility] Comment on above: Performed By: #### M 200.1000, L509.7001, L101.9900, L501.6710 #### [facility] [address] [place], [address] Platelet mean volume (Bld) [Entitic vol] 9.9 fL Normal 6.2-12.0 [facility] Comment on above: Performed By: #### M 200.1000, L509.7001, L101.9900, L501.6710 #### [facility] [address] [place], [address] Platelets (Bld) [#/Vol] 252 10*3/uL Normal 150-450 [facility] Comment on above: Performed By: #### M 200.1000, L509.7001, L101.9900, L501.6710 #### [facility] [address] [place], [address] RBC (Bld) [#/Vol] 4.58 10*6/uL Low 4.6-6.2 [facility] Comment on above: Performed By: #### M 200.1000, L509.7001, L101.9900, L501.6710 #### [facility] [address] [place], [address] RDW SD 48.2 fl High 35.1-43.9 [facility] Comment on above: Performed By: #### M 200.1000, L509.7001, L101.9900, L501.6710 #### [facility] [address] [place], [address] WBC (Bld) [#/Vol] 12.3 10*3/uL High 4.4-11.0 [facility] Comment on above: Performed By: #### M 200.1000, L509.7001, L101.9900, L501.6710 #### [facility] [address] [place], [address] Prothrombin Time w/INRon INR Coag (PPP) [Relative time] 1.8 {INR} Normal [facility] Comment on above: Performed By: #### L 300.3900 #### [facility] [address] [place], [address] PT Coag (PPP) [Time] 20.9 s High 11.7-14.9 [facility] Comment on above: Performed By: #### L 300.3900 #### [facility] [address] [place], [address] Trough vancomycin levelOrder ed By: Marta Black on 09-03-2024 Vancomycin trough [Mass/Vol] 8.2 ug/mL 5.0-15.0 [facility] Comment on above: Recommended goal tro ugh [...] therapy recommended for serious lifethreatening infections include:- Bchniczzkj-Iqgzctuogevr-Bhpnskytm (Ventilator/Healtcare Associated)-Sepsis PLEASE CONTACT PHARMACY SERVICES (#[id number]) FOR INTERPRETATIONOF RESULTS. Vancomycin, Trough Levelon 0 09-03-2024 VANCO, TROUGH 8.2 ug/mL Normal 5.0-15.0 [facility] Comment on above: Order Comment: Comme nts: Trough to be drawn 30 mins prior to scheduled [id number] Result Comment: Ilya mmended goal trough ranges [...] (Ventilator/Healtcare Associated) -Sepsis PLEASE CONTACT PHARMACY SERVICES (#[id number]) FOR INTERPRETATION OF RESULTS. Performed By: #### M 200.1000, L509.7001, L101.9900, L501.6710 #### [facility] [address] [place], [address] Basic Metabolic Profile (BMP )on 09-02-2024 BUN/CRE 18.9 RATIO Normal 10-20 [facility] Comment on above: Performed By: #### M 200.1000, L509.7001, L101.9900, L501.6710 #### [facility] [address] [place], [address] Calcium [Mass/Vol] 8.5 mg/dL Normal 7.6-11.0 [facility] Comment on above: Performed By: #### M 200.1000, L509.7001, L101.9900, L501.6710 #### [facility] [address] [place], [address] Chloride [Moles/Vol] 105 mmol/L Normal 98-108 [facility] Comment on above: Performed By: #### M 200.1000, L509.7001, L101.9900, L501.6710 #### [facility] [address] [place], [address] CO2 [Moles/Vol] 14.2 mmol/L Low 21.0-32.0 [facility] Comment on above: Performed By: #### M 200.1000, L509.7001, L101.9900, L501.6710 #### [facility] [address] [place], [address] Creatinine [Mass/Vol] 0.75 mg/dL Normal 0.70-1.20 [facility] Comment on above: Performed By: #### M 200.1000, L509.7001, L101.9900, L501.6710 #### [facility] [address] [place], [address] ECRCL 64.10 ml/min Normal 50-250 [facility] Comment on above: Performed By: #### M 200.1000, L509.7001, L101.9900, L501.6710 #### [facility] [address] [place], [address] GAP 15 Normal 5-15 [facility] Comment on above: Performed By: #### M 200.1000, L509.7001, L101.9900, L501.6710 #### [facility] [address] [place], [address] GFR/1.73 sq M.predicted among non-blacks MDRD (S/P/Bld) [Vol rate/Area] 86 mL/min/{1.73_m2} Normal >60 [facility] Comment on above: Result Comment: mL/m in/1.73m2 CKD-EPI Creatinine Equation (2020) Performed By: #### M 200.1000, L509.7001, L101.9900, L501.6710 #### [facility] [address] [place], [address] Glucose [Mass/Vol] 105 mg/dL High 70-99 [facility] Comment on above: Performed By: #### M 200.1000, L509.7001, L101.9900, L501.6710 #### [facility] [address] [place], [address] Potassium [Moles/Vol] 4.3 mmol/L Normal 3.3-5.1 [facility] Comment on above: Result Comment: Hemo lysis present, Results??could be affected. ?? Performed By: #### M 200.1000, L509.7001, L101.9900, L501.6710 #### [facility] [address] [place], [address] Sodium [Moles/Vol] 135 mmol/L Normal 133-145 [facility] Comment on above: Performed By: #### M 200.1000, L509.7001, L101.9900, L501.6710 #### [facility] [address] [place], [address] Urea nitrogen [Mass/Vol] 14 mg/dL Normal 4-19 [facility] Comment on above: Performed By: #### M 200.1000, L509.7001, L101.9900, L501.6710 #### [facility] [address] [place], [address] CBC W/Diff, Automatedon 08-21-2024 Absolute Lymph 0.52 X10 3/uL Low 0.83-4.51 [facility] Comment on above: Performed By: #### M 200.1000, L509.7001, L101.9900, L501.6710 #### [facility] [address] [place], [address] Absolute Neut 12.1 X10 3/uL High 2.0-7.7 [facility] Comment on above: Performed By: #### M 200.1000, L509.7001, L101.9900, L501.6710 #### [facility] [address] [place], [address] Basophils/100 WBC (Bld) 0.6 % Normal 0-1 [facility] Comment on above: Performed By: #### M 200.1000, L509.7001, L101.9900, L501.6710 #### [facility] [address] [place], [address] Eosinophils/100 WBC (Bld) 2.2 % Normal 0-5 [facility] Comment on above: Performed By: #### M 200.1000, L509.7001, L101.9900, L501.6710 #### [facility] [address] [place], [address] Erythrocyte distribution width (RBC) [Ratio] 17.8 % High 11.6-14.6 [facility] Comment on above: Performed By: #### M 200.1000, L509.7001, L101.9900, L501.6710 #### [facility] [address] [place], [address] Hematocrit (Bld) [Volume fraction] 39.9 % Low 40-54 [facility] Comment on above: Performed By: #### M 200.1000, L509.7001, L101.9900, L501.6710 #### [facility] [address] [place] [place], [address] Hemoglobin (Bld) [Mass/Vol] 11.9 g/dL Low 13.0-16.5 [facility] Comment on above: Performed By: #### M 200.1000, L509.7001, L101.9900, L501.6710 #### [facility] [address] [place], [address] IG% 0.700 Normal 0.0-0.9 [facility] Comment on above: Result Comment: IG% - Immature Granulocytes (promyelocytes, myelocytes and metamyelocytes) > 1% indicates that a LEFT SHIFT is Present. Performed By: #### M 200.1000, L509.7001, L101.9900, L501.6710 #### [facility] [address] [place], [address] Lymphocytes/100 WBC (Bld) 3.8 % Low 19-41 [facility] Comment on above: Performed By: #### M 200.1000, L509.7001, L101.9900, L501.6710 #### [facility] [address] [place], [address] MCH (RBC) [Entitic mass] 24.5 pg Low 27.0-32.0 [facility] Comment on above: Performed By: #### M 200.1000, L509.7001, L101.9900, L501.6710 #### [facility] [address] [place], [address] MCHC (RBC) [Mass/Vol] 29.8 g/dL Low 32-36 [facility] Comment on above: Performed By: #### M 200.1000, L509.7001, L101.9900, L501.6710 #### [facility] [address] [place], [address] MCV (RBC) [Entitic vol] 82.3 fL Normal 80-94 [facility] Comment on above: Performed By: #### M 200.1000, L509.7001, L101.9900, L501.6710 #### [facility] [address] [place], [address] Monocytes/100 WBC (Bld) 4.8 % Normal 0-10 [facility] Comment on above: Performed By: #### M 200.1000, L509.7001, L101.9900, L501.6710 #### [facility] [address] [place], [address] Neutrophils/100 WBC (Bld) 87.9 % High 47-70 [facility] Comment on above: Performed By: #### M 200.1000, L509.7001, L101.9900, L501.6710 #### [facility] [address] [place], [address] Nucleated RBC (Bld) [#/Vol] 0 10*3/uL Normal 0-5 [facility] Comment on above: Performed By: #### M 200.1000, L509.7001, L101.9900, L501.6710 #### [facility] [address] [place], [address] Platelet mean volume (Bld) [Entitic vol] 10.6 fL Normal 6.2-12.0 [facility] Comment on above: Performed By: #### M 200.1000, L509.7001, L101.9900, L501.6710 #### [facility] [address] [place], [address] Platelets (Bld) [#/Vol] 227 10*3/uL Normal 150-450 [facility] Comment on above: Performed By: #### M 200.1000, L509.7001, L101.9900, L501.6710 #### [facility] [address] [place], [address] RBC (Bld) [#/Vol] 4.85 10*6/uL Normal 4.6-6.2 [facility] Comment on above: Performed By: #### M 200.1000, L509.7001, L101.9900, L501.6710 #### [facility] [address] [place], [address] RDW SD 52.3 fl High 35.1-43.9 [facility] Comment on above: Performed By: #### M 200.1000, L509.7001, L101.9900, L501.6710 #### [facility] [address] [place], [address] WBC (Bld) [#/Vol] 13.8 10*3/uL High 4.4-11.0 [facility] Comment on above: Performed By: #### M 200.1000, L509.7001, L101.9900, L501.6710 #### [facility] [address] [place], [address] Prothrombin Time w/INRon INR Coag (PPP) [Relative time] 1.9 {INR} Normal [facility] Comment on above: Performed By: #### M 200.1000, L509.7001, L101.9900, L501.6710 #### [facility] [address] [place], [address] PT Coag (PPP) [Time] 22.1 s High 11.7-14.9 [facility] Comment on above: Performed By: #### M 200.1000, L509.7001, L101.9900, L501.6710 #### [facility] [address] [place], [address] RESPIRATORY PANEL MOLECULARo n 09-02-2024 RP PANEL ADENOVIRUS Not Detected INFLUENZA A Not Detected INFLUENZA A (SUBTYPE H1) Not Detected INFLUENZA A (SUBTYPE H3) Not Detected INFLUENZA B Not Detected HUMAN METAPHNEUMO Not Detected PARAINFLUENZA 1 Not Detected PARAINFLUENZA 2 Not Detected PARAINFLUENZA 3 Not Detected PARAINFLUENZA 4 Not Detected RHINOVIRUS Not Detected RSV A Not Detected RSV B Not Detected Normal [facility] Comment on above: Performed By: #### M 200.1000, L509.7001, L101.9900, L501.6710 #### [facility] [address] [place], [address] Absolute lymphocyte countOrd ered By: Inderjit Gillespie on 09-01-2024 Lymphocytes Auto (Unsp spec) [#/Vol] 0.62 10*3/uL Low 0.83-4.51 [facility] Absolute neutrophil countOrd ered By: Inderjit Gillespie on 09-01-2024 Neutrophils (Bld) [#/Vol] 11.3 10*3/uL High 2.0-7.7 [facility] Anion gap in Serum or Plasma Ordered By: Inderjit Gillespie on 09-01-2024 Anion gap [Moles/Vol] 10 mmol/L 5-15 [facility] Automated lymphocyte count a s percentage of total leukocytesOrdered By: Inderjit Gillespie on 09-01-2024 Lymphocytes/100 WBC Auto (Unsp spec) 4.8 % Low 19-41 [facility] BUN/creatinine ratioOrdered By: Inderjit Gillespie on 09-01-2024 Urea nitrogen/Creatinine [Mass ratio] 21.6 mg/mg High 10-20 [facility] Basic Metabolic Profile (BMP )on 09-01-2024 BUN/CRE 21.6 RATIO High 10- [facility] Comment on above: Performed By: #### M 200.1000, L509.7001, L101.9900, L501.6710 #### [facility] [address] [place], [address] Calcium [Mass/Vol] 8.8 mg/dL Normal 7.6-11.0 [facility] Comment on above: Performed By: #### M 200.1000, L509.7001, L101.9900, L501.6710 #### [facility] [address] [place], [address] Chloride [Moles/Vol] 105 mmol/L Normal 98-108 [facility] Comment on above: Performed By: #### M 200.1000, L509.7001, L101.9900, L501.6710 #### [facility] [address] [place], [address] CO2 [Moles/Vol] 24.3 mmol/L Normal 21.0-32.0 [facility] Comment on above: Performed By: #### M 200.1000, L509.7001, L101.9900, L501.6710 #### [facility] [address] [place], [address] Creatinine [Mass/Vol] 0.77 mg/dL Normal 0.70-1.20 [facility] Comment on above: Performed By: #### M 200.1000, L509.7001, L101.9900, L501.6710 #### [facility] [address] [place], [address] ECRCL 68.71 ml/min Normal 50-250 [facility] Comment on above: Performed By: #### M 200.1000, L509.7001, L101.9900, L501.6710 #### [facility] [address] [place], [address] GAP 10 Normal 5-15 [facility] Comment on above: Performed By: #### M 200.1000, L509.7001, L101.9900, L501.6710 #### [facility] [address] [place], [address] GFR/1.73 sq M.predicted among non-blacks MDRD (S/P/Bld) [Vol rate/Area] 86 mL/min/{1.73_m2} Normal >60 [facility] Comment on above: Result Comment: mL/m in/1.73m2 CKD-EPI Creatinine Equation (2020) Performed By: #### M 200.1000, L509.7001, L101.9900, L501.6710 #### [facility] [address] [place], [address] Glucose [Mass/Vol] 112 mg/dL High 70-99 [facility] Comment on above: Performed By: #### M 200.1000, L509.7001, L101.9900, L501.6710 #### [facility] [address] [place], [address] Potassium [Moles/Vol] 3.7 mmol/L Normal 3.3-5.1 [facility] Comment on above: Performed By: #### M 200.1000, L509.7001, L101.9900, L501.6710 #### [facility] [address] [place], [address] Sodium [Moles/Vol] 139 mmol/L Normal 133-145 [facility] Comment on above: Performed By: #### M 200.1000, L509.7001, L101.9900, L501.6710 #### [facility] [address] [place], [address] Urea nitrogen [Mass/Vol] 17 mg/dL Normal 4-19 [facility] Comment on above: Performed By: #### M 200.1000, L509.7001, L101.9900, L501.6710 #### [facility] [address] [place], [address] Basophil percentageOrdered B y: Inderjit Gillespie on 09-01-2024 Basophils/100 WBC (Bld) 0.4 % 0-1 [facility] Bilirubin Test strip Ql (U)O rdered By: Inderjit Gillespie on 09-01-2024 Bilirubin Ql (U) Negative Negative [facility] Blood cultureOrdered By: Magnolia Black on 09-01-2024 Bacteria identified Cx Nom (Bld) No growth in 5 days. [facility] Brain/Head without Contrasto n 09-01-2024 Brain/Head without Contrast [facility] [address] [place], [place] [address] Brain/Head without Contrast MR#: [id number] Acct: [id number] Name: ROBY FLORES Rep #: [id number] : 1935 M 89 From: Jose harris MD PCP: Dr. Stas Mora MD Status: REG ER Study: Brain/Head without Contrast Date of Exam: 08/21 05/17 Exam# [id number] Ordering Dr: Inderjit Gillespie MD PROCEDURE: BRAIN/HEAD [...] of the left maxillary sinus. Reading Location: [place] [address] CC: Dr. Inderjit Gillespie MD; Dr. Stas Mora MD Director Corporate Security: Signed Normal [facility] CBC W/Diff, Automatedon 08-21 Absolute Lymph 0.62 X10 3/uL Low 0.83-4.51 [facility] Comment on above: Performed By: #### M 200.1000, L509.7001, L101.9900, L501.6710 #### [facility] [address] [place], [address] Absolute Neut 11.3 X10 3/uL High 2.0-7.7 [facility] Comment on above: Performed By: #### M 200.1000, L509.7001, L101.9900, L501.6710 #### [facility] [address] [place], [address] Basophils/100 WBC (Bld) 0.4 % Normal 0-1 [facility] Comment on above: Performed By: #### M 200.1000, L509.7001, L101.9900, L501.6710 #### [facility] [address] [place], [address] Eosinophils/100 WBC (Bld) 1.2 % Normal 0-5 [facility] Comment on above: Performed By: #### M 200.1000, L509.7001, L101.9900, L501.6710 #### [facility] [address] [place], [address] Erythrocyte distribution width (RBC) [Ratio] 17.2 % High 11.6-14.6 [facility] Comment on above: Performed By: #### M 200.1000, L509.7001, L101.9900, L501.6710 #### [facility] [address] [place], [address] Hematocrit (Bld) [Volume fraction] 36.8 % Low 40-54 [facility] Comment on above: Performed By: #### M 200.1000, L509.7001, L101.9900, L501.6710 #### [facility] [address] [place], [address] Hemoglobin (Bld) [Mass/Vol] 11.6 g/dL Low 13.0-16.5 [facility] Comment on above: Performed By: #### M 200.1000, L509.7001, L101.9900, L501.6710 #### [facility] [address] [place], [address] IG% 0.400 Normal 0.0-0.9 [facility] Comment on above: Result Comment: IG% - Immature Granulocytes (promyelocytes, myelocytes and metamyelocytes) > 1% indicates that a LEFT SHIFT is Present. Performed By: #### M 200.1000, L509.7001, L101.9900, L501.6710 #### [facility] [address] [place], [address] Lymphocytes/100 WBC (Bld) 4.8 % Low 19-41 [facility] Comment on above: Performed By: #### M 200.1000, L509.7001, L101.9900, L501.6710 #### [facility] [address] [place], [address] MCH (RBC) [Entitic mass] 24.6 pg Low 27.0-32.0 [facility] Comment on above: Performed By: #### M 200.1000, L509.7001, L101.9900, L501.6710 #### [facility] [address] [place], [address] MCHC (RBC) [Mass/Vol] 31.5 g/dL Low 32-36 [facility] Comment on above: Performed By: #### M 200.1000, L509.7001, L101.9900, L501.6710 #### [facility] [address] [place], [address] MCV (RBC) [Entitic vol] 78.0 fL Low 80-94 [facility] Comment on above: Performed By: #### M 200.1000, L509.7001, L101.9900, L501.6710 #### [facility] [address] [place], [address] Monocytes/100 WBC (Bld) 5.7 % Normal 0-10 [facility] Comment on above: Performed By: #### M 200.1000, L509.7001, L101.9900, L501.6710 #### [facility] [address] [place], [address] Neutrophils/100 WBC (Bld) 87.5 % High 47-70 [facility] Comment on above: Performed By: #### M 200.1000, L509.7001, L101.9900, L501.6710 #### [facility] [address] [place], [address] Nucleated RBC (Bld) [#/Vol] 0 10*3/uL Normal 0-5 [facility] Comment on above: Performed By: #### M 200.1000, L509.7001, L101.9900, L501.6710 #### [facility] [address] [place], [address] Platelet mean volume (Bld) [Entitic vol] 9.4 fL Normal 6.2-12.0 [facility] Comment on above: Performed By: #### M 200.1000, L509.7001, L101.9900, L501.6710 #### [facility] [address] [place], [address] Platelets (Bld) [#/Vol] 258 10*3/uL Normal 150-450 [facility] Comment on above: Performed By: #### M 200.1000, L509.7001, L101.9900, L501.6710 #### [facility] [address] [place], [address] RBC (Bld) [#/Vol] 4.72 10*6/uL Normal 4.6-6.2 [facility] Comment on above: Performed By: #### M 200.1000, L509.7001, L101.9900, L501.6710 #### [facility] [address] [place], [address] RDW SD 48.2 fl High 35.1-43.9 [facility] Comment on above: Performed By: #### M 200.1000, L509.7001, L101.9900, L501.6710 #### [facility] [address] [place], [address] WBC (Bld) [#/Vol] 12.9 10*3/uL High 4.4-11.0 [facility] Comment on above: Performed By: #### M 200.1000, L509.7001, L101.9900, L501.6710 #### [facility] [address] [place], [address] Gene 09-01-2024 SHEMARN Telephone (PHMEWO) ROBY FLORES ([id number]) 1935 M Date Time Provider Department 09/01/24 RUSSELL AGUAYO During your visit today, we recorded the following information about you: Russell Aguayo [facility] 09/01/2024 10:01 AM Signed PCP reached out [...] affordable alvarado using Good Rx coupons. At [facility] (his current pharmacy), he can get a 1 mo supply for ~$30. If he switches the prescription to [facility], he can get a 1 mo supply for ~$20. See coupons below. Rivastigmine patches are also available via [employer]. It appears the cheapest option is through [facility], in which he can get 30 patches for $52. Coupon also below. Sending to PCP to review and provide patient with coupon card information. Russell Aguayo, Saúl, [facility] Primary Care Clinical Pharmacist Memantine coupon at [facility] Memantine coupon at [facility] Rivastigmine patches coupon at [facility] Luciana Cisneros MD 09/01/2024 1:27 PM Signed Rahul Chau, Staff please let patient know what the pharmacist as opined on. 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 COVID 19 AG RAPID (EMILY Gomez)on [...] RAPID METHOD BinaxNow COVID19 Ag Card Normal [facility] Comment on above: Performed By: #### M 200.1000, L509.7001, L101.9900, L501.6710 #### [facility] [address] [place], [address] COVID-19 virus antigen assay Ordered By: Marta Black on 09-01-2024 SARS-CoV-2 (COVID-19) Ag IA.rapid Ql (Resp) [facility] CRPon 09-01-2024 C-REACTIVE PROT 26.80 mg/L High 0.0-3.0 [facility] Comment on above: Performed By: #### M 200.1000, L509.7001, L101.9900, L501.6710 #### [facility] [address] [facility] [place], [address] Carbon dioxide, total [Moles /volume] in Central venous bloodOrdered By: Inderjit Gillespie on 09-01-2024 CO2 [Moles/Vol] 24.3 mmol/L 21.0-32.0 [facility] Chest 1 View (Portable)on Chest 1 View (Portable) [facility] [address] [place] [address] Chest 1 View (Portable) MR#: [id number] Acct: [id number] Name: ROBY FLORES Rep #: [id number] : 1935 M 89 From: Jose harris MD PCP: Dr. Stas Mora MD Status: REG ER Study: Chest 1 View (Portable) Date of Exam: 09/01/24 Exam# [id number] Ordering Dr: Inderjit Gillespie MD PROCEDURE: CHEST [...] No acute abnormality is seen. Reading Location: [place] [address] CC: Dr. Inderjit Gillespie MD; Dr. Stas Mora MD Director Corporate Security: Signed Normal [facility] Chloride assayOrdered By: Aries Gillespie on 09-01-2024 Chloride [Moles/Vol] 105 mmol/L 98-108 [facility] Emergency Department Summary on 09-01-2024 Emergency Department Summary [facility] Medical Records Department [address] [place] [address] Emergency Department Summary 09/01/24 MR#: [id number] Acct: [id number] Name: ROBY FLORES Rep #: [id number] : 1935 89 From: Inderjit Gillespie MD [...] Prior similar symptoms: No Recent Illness/Hospitalization: [facility] Medical History Chronic anticoagulation TIA (transient ischemic [...] shoulders elbows and wrist. 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 Neurologically he is awake alert. Answering [...] Air 09/01/24 (more content not included)... Normal [facility] Eosinophil percentageOrdered By: Inderjit Gillespie on 09-01-2024 Eosinophils/100 WBC (Bld) 1.2 % 0-5 [facility] Erythrocyte Sed Rateon 09-01 SED RATE 2 mm/hr Normal 0-20 [facility] Comment on above: Performed By: #### M 200.1000, L509.7001, L101.9900, L501.6710 #### [facility] [address] [place], [address] Erythrocyte distribution wid th ratioOrdered By: Inderjit Gillespie on 09-01-2024 Erythrocyte distribution width (RBC) [Ratio] 17.2 % High 11.6-14.6 [facility] Erythrocyte distribution wid th standard deviationOrdered By: Inderjit Gillespie on 09-01-2024 Erythrocyte distribution width (RBC) [Ratio] 48.2 fl High 35.1-43.9 [facility] Erythrocyte sedimentation ra teOrdered By: Marta Black on 09-01-2024 ESR (Bld) [Velocity] 2 mm/h 0-20 [facility] Glomerular filtration rate ( GFR) estimation/1.73 sq m using serum, plasma, or whole bOrdered By: Inderjit Gillespie on 09-01-2024 GFR/1.73 sq M.predicted among non-blacks MDRD (S/P/Bld) [Vol rate/Area] 86 mL/min/{1.73_m2} >60 [facility] Comment on above: mL/min/1.73m2 CKD-EP I Creatinine Equation (2020) H AND P Exam - [facility] 09-01-2024 H&P Exam - Hospitalist [facility] Medical Records Department [address] [place] [address] H P Exam - Hospitalist 09/01/24 1018 MR#: [id number] Acct: [id number] Name: ROBY FLORES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 type of vessel, bill moore's slough or graft Coronary artery disease Other and [...] Yes, Authorizing (more content not included)... Normal [facility] ROBY FLORES ([id number]) 1935 M Date Time Provider Department 04/27/24 CORETTA JALLOH During your visit today, we recorded the following information about you: Coretta Jalloh RPh 04/27/2024 2:01 PM Signed [facility] Ambulatory Pharmacy Anticoagulation Clinic Anticoagulation Episode Summary Anticoagulation Care Providers Provider Role Specialty Phone number Stas Mora MD Referring Family Medicine [phone] Roby Flores is a 88 year old [...] ALLERGIES No Known Allergies Indication for Warfarin: jail current use of 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 Coretta Jalloh [facility] Clinical Pharmacist, Pharmacy Anticoagulation Clinic Pharmacy Anticoagulation Clinic Pager: [phone]. 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 Comment on above: Order Comment: Stone parmar Type: BLOOD SPECIMENOrdering Facility: [facility] Address: [address] [place] [address] Result Comment: Mary min K Antagonist (VKA) Therapeutic Range: INR 2 to 3 (Target INR of 2.5) Note: For patients treated with VKA drugs, such as warfarin, the [employer] 2012 Guideline recommends [...] Chest 2012, 141:7S-47S Avel CARDONA et al. [facility] 2017, 70: 252-289 Performed By: #### 3 4528-0 ####[facility] [id number] [place] [address] [place] PT Coag (PPP) [Time] 25.2 s High <13.1 [facility] Comment on above: Order Comment: Stone parmar Type: BLOOD SPECIMENOrdering Facility: [facility] Address: [address] [id number] Performed By: #### 3 4528-0 ####[facility] MIAMIAMINATALIRachel [id number] [place] [address] [place] THYROID STIMULATING HORMONEo n 04-27-2024 TSH Qn 0.177 m[IU]/L Low [facility] TSH Qnon 04-27-2024 Interpretation and review of laboratory results Abnormal [facility] TSH SerPl-aCncon 04-27-2024 TSH Qn 0.177 m[IU]/L Low 0.270-4.[address] [facility] Comment on above: Order Comment: Speci men Type: BLOOD SPECIMENOrdering Facility: [facility] Address: [address] [place] [address] [place] [address] Performed By: #### 2 132-9, 3016-3 ####[facility] LABCLIA [id number] [place] [address] [place] VITAMIN B12on 04-27-2024 Cobalamin (Vitamin B12) [Mass/Vol] 389 pg/mL 232 - 1245 pg/mL [facility] Vit B12 SerPl-mCncon 025 Cobalamin (Vitamin B12) [Mass/Vol] 389 pg/mL Normal 232-1245 [facility] Comment on above: Order Comment: Speci men Type: BLOOD SPECIMENOrdering Facility: [facility] Address: [address] [place], [place] [address] [address] Performed By: #### 2 132-9, 3016-3 ####[facility] LABCLIA [id number] [place] [id number] [place] CNPNon 04-25-2024 [facility]OR[facility] ([id number]) 1935 M Date Time Provider Department 04/25/24 [facility] During your visit today, we recorded [...] with pt. Scheduled an appt on 04/29. 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 jail current use of anticoagulant [Z79.01]09/22/2016 Paroxysmal atrial fibrillation (HCC) [I48.0] 09/22/2016 Hyperlipidemia [E78.5] 08/26/2022 Encounter Status:Closed by MARIAN CORONA on 04/25/24 [facility] 04-13-2024 CNPN Telephone (PHAMTE) ROBY FLORES ([id number]) 1935 M Date Time Provider Department 04/13/24 CORETTA JALLOH During your visit today, we recorded the following information about you: Coretta Jalloh RPh 04/13/2024 11:15 AM Signed [facility] Ambulatory Pharmacy Anticoagulation Clinic Anticoagulation Episode Summary Anticoagulation Care Providers Provider Role Specialty Phone number Stas Mora MD Referring Family Medicine [phone] Roby Garcia Sandra is a 88 year [...] ALLERGIES No Known Allergies Indication for Warfarin: jail current use of 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 Coretta Jalloh [facility] Clinical Pharmacist, Pharmacy Anticoagulation Clinic Pharmacy Anticoagulation Clinic Pager: [phone]. 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 PT panel Coag (PPP)on 2024 INR Coag (PPP) [Relative time] 3.2 {INR} High 0.9-1.3 [facility] Comment on above: Order Comment: Stone parmar Type: BLOOD SPECIMENOrdering Facility: [facility] Address: [address] [place] [address] Result Comment: Mary min K Antagonist (VKA) Therapeutic Range: INR 2 to 3 (Target INR of 2.5) Note: For patients treated with VKA drugs, such as warfarin, the [employer] 2012 Guideline recommends [...] Chest 2012, 141:7S-47S Avel RA, et al. [facility] 2017, 70: 252-289 Performed By: #### 3 4528-0 ####[facility] [id number] [place] [address] [place] PT Coag (PPP) [Time] 31.2 s High <13.1 [facility] Comment on above: Order Comment: Stone parmar Type: BLOOD SPECIMENOrdering Facility: [facility] Address: [address] [place] [address] Performed By: #### 3 4528-0 ####[facility] [id number] [place] [id number] [place] [facility] Gene 03-30-2024 CNPN Telephone (PHAMTE) ROBY FLORES ([id number]) 1935 M Date Time Provider Department 03/30/24 CORETTA JALLOH PHAJENNIFERE During your visit today, we recorded the following information about you: Coretta Jalloh riya 03/30/2024 9:57 AM Signed [facility] Ambulatory Pharmacy Anticoagulation Clinic Anticoagulation Episode Summary Anticoagulation Care Providers Provider Role Specialty Phone number Stas Mora MD Referring Family Medicine [phone] Roby Flores is a 88 year old [...] ALLERGIES No Known Allergies Indication for Warfarin: jail current use of 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 Coretta Jalloh [facility] Clinical Pharmacist, Pharmacy Anticoagulation Clinic Pharmacy Anticoagulation Clinic Pager: [phone]. 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 PT panel Coag (PPP)on 2024 INR Coag (PPP) [Relative time] 3.5 {INR} High 0.9-1.3 [facility] Comment on above: Order Comment: Speci men Type: BLOOD SPECIMENOrdering Facility: [facility] Address: [address] [place] [address] [place] [address] Result Comment: Mary min K Antagonist (VKA) Therapeutic Range: INR 2 to 3 (Target INR of 2.5) Note: For patients treated with VKA drugs, such as warfarin, the [employer] 2012 Guideline recommends [...] Chest 2012, 141:7S-47S Avel RA, et al. [facility] 2017, 70: 252-289 Performed By: #### 3 4528-0 ####[facility] [id number] [place] [address] [place] PT Coag (PPP) [Time] 33.4 s High <13.1 [facility] Comment on above: Order Comment: Speci men Type: BLOOD SPECIMENOrdering Facility: [facility] Address: [address] [facility] [address] Performed By: #### 3 4528-0 ####[facility] [id number] [address] [facility] Gene 03-17-2024 MICHELINE Telephone (PHARAV) ROBY FLORES ([id number]) 1935 M Date Time Provider Department 03/17/24 JOSY GANDHI During your visit today, we recorded the following information about you: Josy Gandhi RPh 03/17/2024 9:38 AM Signed [facility] Ambulatory Pharmacy Anticoagulation Clinic Anticoagulation Episode Summary Anticoagulation Care Providers Provider Role Specialty Phone number Stas Mora MD Referring Family Medicine [phone] Roby Garcia Sandra is a 88 year [...] ALLERGIES No Known Allergies Indication for Warfarin: 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 Josy Gandhi [facility] Clinical Pharmacist, Pharmacy Anticoagulation Clinic Pharmacy Anticoagulation Clinic Pager: [phone]. 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 PT panel Coag (PPP)on 2023 INR Coag (PPP) [Relative time] 3.8 {INR} High 0.9-1.3 [facility] Comment on above: Order Comment: Stone parmar Type: BLOOD SPECIMENOrdering Facility: [facility] Address: [address] [place] [address] Result Comment: Mary min K Antagonist (VKA) Therapeutic Range: INR 2 to 3 (Target INR of 2.5) Note: For patients treated with VKA drugs, such as warfarin, the [employer] 2012 Guideline recommends [...] Chest 2012, 141:7S-47S Avel RA, et al. [facility] 2017, 70: 252-289 Performed By: #### 3 4528-0 ####[facility] [id number] [place] [address] [place] PT Coag (PPP) [Time] 36.4 s High <13.1 [facility] Comment on above: Order Comment: Stone parmar Type: BLOOD SPECIMENOrdering Facility: [facility] Address: [address] [place] [address] Performed By: #### 3 4528-0 ####[facility] [id number] [place] [address] [place] Gene 03-03-2024 CNPN Telephone (PHAMTE) ROBY FLORES ([id number]) 1935 M Date Time Provider Department 03/03/24 ELISE PAREDES During your visit today, we recorded the following information about you: Elise Paredes, [facility] 03/03/2024 9:40 AM Signed [facility] Ambulatory Pharmacy Anticoagulation Clinic Anticoagulation Episode Summary Anticoagulation Care Providers Provider Role Specialty Phone number Stas Mora MD Referring Family Medicine [phone] Roby Flores is a 88 year old [...] ALLERGIES No Known Allergies Indication for Warfarin: 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 Elise Paredes [facility] Clinical Pharmacist, Pharmacy Anticoagulation Clinic Pharmacy Anticoagulation Clinic Pager: [phone]. 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 Normal [facility] PT panel Coag (PPP)on 2023 INR Coag (PPP) [Relative time] 3.6 {INR} High 0.9-1.3 [facility] Comment on above: Order Comment: Speci men Type: BLOOD SPECIMENOrdering Facility: [facility] Address: [address] [place] [address] Result Comment: Mary min K Antagonist (VKA) Therapeutic Range: INR 2 to 3 (Target INR of 2.5) Note: For patients treated with VKA drugs, such as warfarin, the [employer] 2012 Guideline recommends [...] 70: 252-289 Performed By: #### 3 4528-0 ####[facility] [id number] [place] [address] [place] PT Coag (PPP) [Time] 35.1 s High <13.1 [facility] Comment on above: Order Comment: Speci men Type: BLOOD SPECIMENOrdering Facility: [facility] Address: [address] [place] [address] Performed By: #### 3 4528-0 ####[facility] [id number] [place] [address] [place] Gene 02-10-2024 MICHELINE Telephone (SHAY) ROBY FLORES ([id number]) 1935 M Date Time Provider Department 02/10/24 CORETTA JALLOH During your visit today, we recorded the following information about you: Coretta Jalloh RPh 02/10/2024 9:12 AM Signed [facility] Ambulatory Pharmacy Anticoagulation Clinic Anticoagulation Episode Summary Anticoagulation Care Providers Provider Role Specialty Phone number Stas Mora MD Referring Family Medicine [phone] Roby Flores is a 88 year old [...] ALLERGIES No Known Allergies Indication for Warfarin: jail current use of 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 Coretta Jalloh [facility] Clinical Pharmacist, Pharmacy Anticoagulation Clinic Pharmacy Anticoagulation Clinic Pager: [phone]. Coretta Jalloh riya 02/24/2024 3:53 PM Signed Patient was due to test INR today at the lab - will continue to monitor for results. 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 PT panel Coag (PPP)on 2023 INR Coag (PPP) [Relative time] 3.3 {INR} High 0.9-1.3 [facility] Comment on above: Order Comment: Speci men Type: BLOOD SPECIMENOrdering Facility: [facility] Address: [address] [place] [address] Result Comment: Mary min K Antagonist (VKA) Therapeutic Range: INR 2 to 3 (Target INR of 2.5) Note: For patients treated with VKA drugs, such as warfarin, the [employer] 2012 Guideline recommends [...] Chest 2012, 141:7S-47S Avel RA, et al. [facility] 2017, 70: 252-289 Performed By: #### 3 4528-0 ####[facility] [id number] [place] [address] [place] PT Coag (PPP) [Time] 31.4 s High <13.1 [facility] Comment on above: Order Comment: Speci men Type: BLOOD SPECIMENOrdering Facility: [facility] Address: [address] [place] [address] Performed By: #### 3 4528-0 ####[facility] [id number] [place] [id number] [place] [address] [place] Gene 01-20-2024 CNPN Telephone (PHAMTE) ROBY FLORES ([id number]) 1935 M Date Time Provider Department 01/20/24 CORETTA JALLOH During your visit today, we recorded the following information about you: Coretta Jalloh RPh 01/20/2024 10:25 AM Signed [facility] Ambulatory Pharmacy Anticoagulation Clinic Anticoagulation Episode Summary Anticoagulation Care Providers Provider Role Specialty Phone number Stas Mora MD Referring Family Medicine [phone] Roby Radha Flores is a 88 year [...] ALLERGIES No Known Allergies Indication for Warfarin: jail current use of 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 Coretta Jalloh [facility] Clinical Pharmacist, Pharmacy Anticoagulation Clinic Pharmacy Anticoagulation Clinic Pager: [phone]. 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 PT panel Coag (PPP)on 2023 INR Coag (PPP) [Relative time] 3.4 {INR} High 0.9-1.3 [facility] Comment on above: Order Comment: Speci men Type: BLOOD SPECIMENOrdering Facility: [facility] Address: [address] [place] [address] Result Comment: Mary min K Antagonist (VKA) Therapeutic Range: INR 2 to 3 (Target INR of 2.5) Note: For patients treated with VKA drugs, such as warfarin, the [employer] 2012 Guideline recommends [...] Chest 2012, 141:7S-47S Avel RA, et al. [facility] 2017, 70: 252-289 Performed By: #### 3 4528-0 ####[facility] [id number] [place] [address] [place] PT Coag (PPP) [Time] 31.8 s High <13.1 [facility] Comment on above: Order Comment: Speci men Type: BLOOD SPECIMENOrdering Facility: [facility] Address: [address] [place] [address] Performed By: #### 3 4528-0 ####[facility] [id number] [address] [place] Gene 01-04-2024 [facility] FLORES ([id number]) 1935 M Date Time Provider Department 01/04/24 STAS [facility]OR[facility] During your visit today, we [...] daily as directed. 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 Encounter Status:Closed by JENNA FITZPATRICK on 01/04/24 [facility] Gene 12-24-2023 CNPN Telephone (PHAMTE) ROBY FLORES ([id number]) 1935 M Date Time Provider Department 12/24/23 ELISE PAREDES During your visit today, we recorded the following information about you: [facility]23 2:32 PM Signed [facility] Ambulatory Pharmacy Anticoagulation Clinic Anticoagulation Episode Summary Anticoagulation Care Providers Provider Role Specialty Phone number Stas Mora MD Referring Family Medicine [phone] Roby Garcia Sandra is a 88 year [...] ALLERGIES No Known Allergies Indication for Warfarin: 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 Paroxysmal atrial fibrillation (hcc) Anticoagulation Episode Summary Current INR goal: 2.0-3.0 Assessment: INR result of 2.2 is therapeutic Plan: Current Warfarin Dosing As of 12/24/2023 Full warfarin instructions: 2.5 mg every Sun; 3 mg all other days Left voice message Advised patient to continue current weekly dose as noted above Next lab INR check scheduled on 01/21/2024 Elise Paredes [facility] Clinical Pharmacist, Pharmacy Anticoagulation Clinic Pharmacy Anticoagulation Clinic Pager: [phone]. 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 PT panel Coag (PPP)on 2023 INR Coag (PPP) [Relative time] 2.2 {INR} High 0.9-1.3 [facility] Comment on above: Order Comment: Speci men Type: BLOOD SPECIMENOrdering Facility: [facility] Address: [address] [place], [place] [id number] Result Comment: Mary min K Antagonist (VKA) Therapeutic Range: INR 2 to 3 (Target INR of 2.5) Note: For patients treated with VKA drugs, such as warfarin, the [employer] 2012 Guideline recommends [...] Chest 2012, 141:7S-47S Avel RA, et al. [facility] 2017, 70: 252-289 Performed By: #### 3 4528-0 ####[facility] [id number] [place] [address] [place] PT Coag (PPP) [Time] 22.1 s High 9.7-13.0 [facility] Comment on above: Order Comment: Speci men Type: BLOOD SPECIMENOrdering Facility: [facility] Address: [address] [place] [address] Performed By: #### 3 4528-0 ####[facility] [id number] [address] [place] CNPMarizol 12-10-2023 CNPN Telephone (PHAMTE) ROBY FLORES ([id number]) 1935 M Date Time Provider Department 12/10/23 ELISE PAREDES During your visit today, we recorded the following information about you: Elise Paredes, [facility] 12/10/2023 2:21 PM Signed [facility] Ambulatory Pharmacy Anticoagulation Clinic Anticoagulation Episode Summary Anticoagulation Care Providers Provider Role Specialty Phone number Stas Mora MD Referring Family Medicine [phone] Roby Radha Flores is a 88 year [...] ALLERGIES No Known Allergies Indication for Warfarin: 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 Paroxysmal atrial fibrillation (hcc) Anticoagulation Episode Summary Current INR goal: 2.0-3.0 Assessment: INR result of 1.9 is SUBtherapeutic due to: unknown cause - did not speak to patient Plan: Current Warfarin Dosing As of 12/10/2023 Full warfarin instructions: 2.5 mg every Sun; 3 mg all other days Left voice message for Gabby at [phone] (home) Advised patient to increase total weekly regimen Next lab INR check scheduled on 12/24/2023 Elise Paredes [facility] Clinical Pharmacist, Pharmacy Anticoagulation Clinic Pharmacy Anticoagulation Clinic Pager: [phone]. 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 PT panel Coag (PPP)on 2023 INR Coag (PPP) [Relative time] 1.9 {INR} High 0.9-1.3 [facility] Comment on above: Order Comment: Speci men Type: BLOOD SPECIMENOrdering Facility: [facility] Address: [address] [place] [address] Result Comment: Mary min K Antagonist (VKA) Therapeutic Range: INR 2 to 3 (Target INR of 2.5) Note: For patients treated with VKA drugs, such as warfarin, the [employer] 2012 Guideline recommends [...] Chest 2012, 141:7S-47S Avel RA, et al. [facility] 2017, 70: 252-289 Performed By: #### 3 4528-0 ####[facility] [id number] [place] [address] [place] PT Coag (PPP) [Time] 18.8 s High 9.7-13.0 [facility] Comment on above: Order Comment: Speci men Type: BLOOD SPECIMENOrdering Facility: [facility] Address: [address] [place] [address] Performed By: #### 3 4528-0 ####[facility] [id number] [address] [place] CNOVon 11-26-2023 CNOV Office Visit (FAMPWS ) ROBY FLORES ([id number]) 1935 M Date Time Provider Department 11/26/23 [...] out his medication for him to take. - Declines RSV vaccine. Will receive Flu vaccine through Pharmacy with . Will check with local Pharmacy for updated Covid vaccine. Past medical history, appointments, medications, allergies reviewed. Previous Medical History PAST MEDICAL HISTORY No date: Coronary atherosclerosis of unspecified type of vessel, bill moore's slough or graft Comment: Coronary artery disease No [...] Influ (more content not included)... Normal [facility] CNPNon 11-26-2023 CNPN Telephone (PHAMTE) ROBY FLORES ([id number]) 1935 M Date Time Provider Department 11/26/23 ELISE PAREDES During your visit today, we recorded the following information about you: Elise Paredes, [facility] 11/26/2023 4:23 PM Signed [facility] Ambulatory Pharmacy Anticoagulation Clinic Anticoagulation Episode Summary Anticoagulation Care Providers Provider Role Specialty Phone number Stas Mora MD Referring Family Medicine [phone] Roby Flores is a 88 year old [...] ALLERGIES No Known Allergies Indication for Warfarin: jail current use of anticoagulant Paroxysmal atrial fibrillation [...] call PAC to discuss further Elise Paredes [facility] Clinical Pharmacist, Pharmacy Anticoagulation Clinic Pharmacy Anticoagulation Clinic Pager: [phone]. Satish (Lining Presser)Parmjit 11/26/2023 4:30 PM Signed Patient's spouse called regarding message. Patient typically takes warfarin in the morning but did not take any today. Patient's spouse doesn't understand why its low all the sudden. Denies changes in medication/ diet or missed doses. 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 Elise Paredes [facility] Clinical Pharmacist, Pharmacy Anticoagulation Clinic Pharmacy Anticoagulation Clinic Pager: [phone]. Allergies As of Date: 11/26/2023 (No Known Allergies) Date Reviewed: 11/26/2023 Reviewed by: Rosie Cruz MA - Fully Assessed Reason for Visit: Anticoagulation Telephone Fu [148] Cmt: Lab INR Primary Visit Diagnosis:jail current use of anticoagulant [Z79.01] (more content not included)... Normal [facility] PT panel Coag (PPP)on 2023 INR Coag (PPP) [Relative time] 1.5 {INR} High 0.9-1.3 [facility] Comment on above: Order Comment: Speci men Type: BLOOD SPECIMEN [facility] Address: [address] [place] [address] Result Comment: Mary min K Antagonist (VKA) Therapeutic Range: INR 2 to 3 (Target INR of 2.5) Note: For patients treated with VKA drugs, such as warfarin, the [employer] 2012 Guideline recommends [...] Chest 2012, 141:7S-47S Avel CARDONA et al. [facility] 2017, 70: 252-289 Performed By: #### 3 4528-0 #### [facility] [place] [id number] [address] [place] [address] [place] PT Coag (PPP) [Time] 15.1 s High 9.7-13.0 [facility] Comment on above: Order Comment: Speci men Type: BLOOD SPECIMEN [facility] Address: [address] [place] [address] Performed By: #### 3 4528-0 #### [facility] [place] [id number] [address] [place] [address] [place] CBC W Auto Differential pane l (Bld)on 06-04-2023 Basophils (Bld) [#/Vol] 0.06 10*3/uL <0.11 k/uL [facility] Basophils/100 WBC (Bld) 0.9 % [facility] Differential cell count method Nom (Bld) Auto [facility] Eosinophils (Bld) [#/Vol] 0.16 10*3/uL <0.46 k/uL [facility] Eosinophils/100 WBC (Bld) 2.4 % [facility] Erythrocyte distribution width (RBC) [Ratio] 15.7 % High 11.5 - 15.0 % [facility] Hematocrit (Bld) [Volume fraction] 34.9 % Low 39.0 - 51.0 % [facility] Hemoglobin (Bld) [Mass/Vol] 10.0 g/dL Low 13.0 - 17.0 g/dL [facility] Immature granulocytes (Bld) [#/Vol] <0.10 k/uL [facility] Immature granulocytes/100 WBC (Bld) 0.3 % [facility] Lymphocytes (Bld) [#/Vol] 1.65 10*3/uL 1.00 - 4.00 k/uL [facility] Lymphocytes/100 WBC (Bld) 24.8 % [facility] MCH (RBC) [Entitic mass] 20.9 pg Low 26.0 - 34.0 pg [facility] MCHC (RBC) [Mass/Vol] 28.7 g/dL Low 30.5 - 36.0 g/dL [facility] MCV (RBC) [Entitic vol] 73.0 fL Low 80.0 - 100.0 fL [facility] Monocytes (Bld) [#/Vol] 0.61 10*3/uL <0.87 k/uL [facility] Monocytes/100 WBC (Bld) 9.2 % [facility] Neutrophils (Bld) [#/Vol] 4.16 10*3/uL 1.45 - 7.50 k/uL [facility] Neutrophils/100 WBC (Bld) 62.4 % [facility] Nucleated RBC (Bld) [#/Vol] <0.01 k/uL [facility] Nucleated RBC/100 WBC (Bld) [Ratio] 0.0 /100 WBC [facility] Platelet mean volume (Bld) [Entitic vol] 10.7 fL 9.0 - 12.7 fL [facility] Platelets (Bld) [#/Vol] 297 10*3/uL 150 - 400 k/uL [facility] RBC (Bld) [#/Vol] 4.78 10*6/uL 4.20 - 6.00 m/uL [facility] WBC (Bld) [#/Vol] 6.66 10*3/uL 3.70 - 11.00 k/uL [facility] MRI BRAIN WO IVCONon [id number] [facility] Absolute lymphocyte countOrd ered By: Brian Cunningham on 02-10-2023 Lymphocytes Auto (Unsp spec) [#/Vol] 0.99 10*3/uL 0.83-4.51 [facility] Basophil percentageOrdered B y: Brian Cunningham on 02-10-2023 Basophil percentage 0-5 SEEN /hpf 0-5 [facility] Basophils/100 WBC (Bld) 0.8 % 0-1 [facility] Chloride [Moles/Vol] 108 mmol/L 98-107 [facility] Eosinophils/100 WBC (Bld) 0.4 % 0-5 [facility] Glucose [Mass/Vol] 117 mg/dL 74-106 [facility] Comment on above: Fasting Glucose resu lt from 100 to 125 mg/dL suggests IMPAIRED HOMEOSTASIS per A.D.A. criteria. Neutrophils (Bld) [#/Vol] 5.8 10*3/uL 2.0-7.7 [facility] Neutrophils/100 WBC (Bld) 77.9 % 47-70 [facility] Potassium [Moles/Vol] 4.0 mmol/L 3.5-5.1 [facility] Sodium [Moles/Vol] 140 mmol/L 136-145 [facility] WBC (Bld) [#/Vol] 7.5 10*3/uL 4.4-11.0 [facility] Bilirubin Test strip Ql (U)O rdered By: Brian Cunningham on 02-10-2023 Bilirubin Ql (U) 1 mg/dL Negative [facility] Comment on above: COLOR OF URINE MAY A FFECT DIPSTICK RESULTS. Blood erythrocytes count (nu mber/volume)Ordered By: Brian Cunningham on 02-10-2023 RBC (Bld) [#/Vol] 4.42 10*6/uL 4.6-6.2 [facility] Blood hemoglobin measurement (mass/volume)Ordered By: Brian Cunningham on 02-10-2023 Hemoglobin (Bld) [Mass/Vol] 10.6 g/dL 13.0-16.5 [facility] Blood lymphocytes/100 leukoc ytesOrdered By: Brian Cunningham on 02-10-2023 Lymphocytes/100 WBC (Bld) 13.3 % 19-41 [facility] Blood monocytes/100 leukocyt esOrdered By: Brian Cunningham on 02-10-2023 Monocytes/100 WBC (Bld) 7.2 % 0-10 [facility] Blood platelet mean volumeOr dered By: Brian Cunningham on 02-10-2023 Platelet mean volume (Bld) [Entitic vol] 9.9 fL 6.2-12.0 [facility] Determination of erythrocyte mean corpuscular volume (MCV)Ordered By: Brian Cunningham on 02-10-2023 MCV (RBC) [Entitic vol] 81.9 fL 80-94 [facility] Hematocrit Auto (Bld) [Volum e fraction]Ordered By: Brian Cunningham on 02-10-2023 Hematocrit (Bld) [Volume fraction] 36.2 % 40-54 [facility] INR in Blood by Coagulation assayOrdered By: Brian Cunningham on 02-10-2023 INR Coag (Bld) [Relative time] 1.2 {INR} [facility] Influenza virus A and B and SARS-CoV-2 (COVID-19) Ag panel - Upper respiratory specimOrdered By: Brian Cunningham on 02-10-2023 SARS-CoV-2 (COVID-19) RNA LOLI+probe Ql (Resp) [facility] Ketones Test strip Ql (U)Ord ered By: Brian Cunningham on 02-10-2023 Ketones Ql (U) 5 mg/dl Negative [facility] Laboratory - Chemistry and C hemistry - challengeOrdered By: Brian Cunningham on 02-10-2023 CO2 [Moles/Vol] 30.0 mmol/L 21.0-32.0 [facility] Urea nitrogen/Creatinine [Mass ratio] 23.8 mg/mg 10-20 [facility] Laboratory - CoagulationOrde red By: Brian Cunningham on 02-10-2023 aPTT Coag (Bld) [Time] 26.3 s 24.1-36.2 [facility] PT Coag (PPP) [Time] 15.6 s 11.7-14.9 [facility] Laboratory - Hematology and Cell countsOrdered By: Brian Cunningham on 02-10-2023 Erythrocyte distribution width (RBC) [Entitic vol] 41.8 fL 35.1-43.9 [facility] Erythrocyte distribution width (RBC) [Ratio] 14.1 % 11.6-14.6 [facility] Immature granulocytes/100 WBC (Bld) 0.400 % 0.0-0.9 [facility] Comment on above: IG% - Immature Granu locytes (promyelocytes, myelocytes and metamyelocytes) > 1% indicates that a LEFT SHIFT is Present. MCH (RBC) [Entitic mass] 24.0 pg 27.0-32.0 [facility] Nucleated RBC/100 WBC (Bld) [Ratio] 0 % 0-5 [facility] MCHC Auto (RBC) [Mass/Vol]Or dered By: Brian Cunningham on 02-10-2023 MCHC (RBC) [Mass/Vol] 29.3 g/dL 32-36 [facility] Mucus LM Ql (Urine sed)Order ed By: Brian Cunningham on 02-10-2023 Mucus Ql (Urine sed) 0 SEEN /hpf [facility] Nitrite Test strip Ql (U)Ord ered By: Brian Cunningham on 02-10-2023 Nitrite Ql (U) Negative Negative [facility] No Panel InformationOrdered By: Brian Cunningham on 02-10-2023 Estimated Creatinine Clearance Calc 68.37 ml/min [facility] Estimated GFR (MDRD) Amer 118 mL/min >60 [facility] Comment on above: GFR Calc Estimated GFR (MDRD) Non-Af Amer 97 mL/min >60 [facility] Comment on above: Non- GFR Calc Troponin I High Sensitivity 16 pg/mL 3.0-78.0 [facility] Comment on above: Please Note: New [place] t Units and Gender Specific Reference Ranges. For more information see Policy Stat Procedure [place] High Sensitivity Troponin (TNIH) and attachments. Platelets bldOrdered By: Caitlyn Cunningham on 02-10-2023 Platelets (Bld) [#/Vol] 328 10*3/uL 150-450 [facility] Protein Test strip Ql (U)Ord ered By: Brian Cunningham on 02-10-2023 Protein Ql (U) 15 mg/dl Negative [facility] Serum or plasma calcium alvaro urement (mass/volume)Ordered By: Brian Cunningham on 02-10-2023 Calcium [Mass/Vol] 8.9 mg/dL 8.5-10.1 [facility] Serum or plasma creatinine m easurement (mass/volume)Ordered By: Brian Cunningham on 02-10-2023 Creatinine [Mass/Vol] 0.80 mg/dL 0.70-1.30 [facility] Comment on above: The validity of the calculated GFR & GFRAA in patients over 70 years has not been determined. Clinical correlation is essential. Serum or plasma urea nitroge n measurement (mass/volume)Ordered By: Brian Cunningham on 02-10-2023 Urea nitrogen [Mass/Vol] 19 mg/dL 7-18 [facility] Squamous epithelial cells de tection in urine sediment by light microscopyOrdered By: Brian Cunningham on 02-10-2023 Epithelial cells.squamous LM Ql (Urine sed) 0 SEEN /hpf 0-5 [facility] Thin prep Papanicolaou smear with manual screeningOrdered By: Brian Cunningham on 02-10-2023 Thin prep Papanicolaou smear with manual screening 2 5-15 [facility] Urine blood detectionOrdered By: Brian Cunningham on 02-10-2023 RBC Ql (U) Negative Negative [facility] RBC Ql (U) 0 SEEN /hpf 0-5 [facility] Urine clarityOrdered By: Caitlyn Cunningham on 02-10-2023 Clarity (U) Clear Clear [facility] Urine color determinationOrd ered By: Brian Cunningham on 02-10-2023 Color (U) Yellow Yellow [facility] Urine glucose detectionOrder ed By: Brian Cunningham on 02-10-2023 Glucose Ql (U) Normal mg/dl Normal [facility] Urine leukocyte esterase det ection by dipstickOrdered By: Brian Cunningham on 02-10-2023 Leukocyte esterase Test strip Ql (U) 25 /ul Negative [facility] Urine pHOrdered By: Brian swain on 02-10-2023 pH (U) 6.5 [pH] 5.0 - 8.0 [facility] Urine sediment bacteria coun t by microscopy (number/high power field)Ordered By: Brian Cunningham on 02-10-2023 Bacteria LM.HPF (Urine sed) [#/Area] 0 /[HPF] None Seen [facility] Urine specific gravity measu rementOrdered By: Brianlisette Cunningham on 02-10-2023 Specific gravity (U) [Rel density] 1.015 1.002-1.03 0 [facility] Urobilinogen Auto test strip Ql (U)Ordered By: Brian Cunningham on 02-10-2023 Urobilinogen Ql (U) 4 mg/dl Normal [facility] CT HEAD OR BRAIN W/O CONTRAS [...] 11/17/2022 4:26:20 PM Ordering Provider: STERLING LYNCH [facility] [place] XR Pelvis and Hip - left AP and Lateral frogon 05-21-2022 IMPRESSION: No acute fracture or hip dislocation Director Corporate Security: [employer] Transcribe Date/Time: May 21 2022 3:41P [...] Small acetabular osteophytes. DIVISION OF RADIOLOGY Provider, Richie Pierce [facility] - 05/21/2022 * * *Final Report* * [...] IMPRESSION: No acute fracture or hip dislocation Director Corporate Security: [facility] Transcribe Date/Time: May 21 2022 3:41P Dictated by : JUDY MCKENZIE MD This examination was interpreted and the report reviewed and electronically signed by: JUDY MCKENZIE MD on May 21 2022 3:43PM EST [facility] Radiology Study observation (narrative) [facility] XR Pelvis and Hip - left AP and Lateral frogOrdered By: Ccf Provider on 05-21-2022 [facility] PT panel Coag (PPP)on 2022 INR Coag (Bld) [Relative time] 1.7 {INR} [facility] Basophil percentageon 2021 Cholesterol [Mass/Vol] 152 mg/dL <200 [facility] Work Phone: Comment on above: <200 mg/dL Desirable 200-240 mg/dL Borderline >240 mg/dL High Risk Triglyceride [Mass/Vol] 76 mg/dL <199 [facility] Work Phone: Comment on above: The drugs N-Acetylcy steine and Metamizole may falsely depress this assay.Serum Triglycerides Reference Interval Normal <150 mg/dL Borderline high 150 - 199 mg/dL High 200 - 499 mg/dL Very High > or = 500 mg/dL INR in Blood by Coagulation assayon 12-22-2021 INR Coag (Bld) [Relative time] 2.5 {INR} [facility] Work Phone: Laboratory - Chemistry and C hemistry - challengeon 12-22-2021 Magnesium [Mass/Vol] 2.1 mg/dL 1.6-2.6 [facility] Work Phone: Laboratory - Coagulationon 1 PT Coag (PPP) [Time] 27.0 s 11.7-14.9 [facility] Work Phone: No Panel Informationon 12-22 Thyroid Stimulating Hormone (TSH) 0.42 uIU/mL 0.358-3.74 [facility] Work Phone: Serum or plasma cholesterol in HDL measurement (mass/volume)on 12-22-2021 Cholesterol in HDL [Mass/Vol] 35 mg/dL >40 [facility] Work Phone: Comment on above: The drugs N-Acetylcy steine and Metamizole may falsely depress this assay. Reference Range HDL <40 mg/dL Low HDL Cholesterol HDL >or= 60 mg/dL High HDL Cholesterol Serum or plasma cholesterol in VLDL measurement (mass/volume)on 12-22-2021 Cholesterol in VLDL [Mass/Vol] 15 mg/dL 5-40 [facility] Work Phone: Serum or plasma low density lipoprotein (LDL) cholesterol measurement (mass/volume)on 12-22-2021 Cholesterol in LDL [Mass/Vol] 102 mg/dL 0-130 [facility] Work Phone: Whole blood hemoglobin A1c/t otal hemoglobin ratio (mass fraction)on 12-22-2021 HbA1c (Bld) [Mass fraction] 5.9 % 3.8-5.6 [facility] Work Phone: Comment on above: Normal < 5.7 % Predi abetic 5.7 - 6.4 % Diabetic >or= 6.5 % Please note range changes. Absolute lymphocyte counton 12-21-2021 Lymphocytes Auto (Unsp spec) [#/Vol] 1.23 10*3/uL 0.83-4.51 [facility] Work Phone: Basophil percentageon 2021 Basophils/100 WBC (Bld) 0.4 % 0-1 [facility] Work Phone: Chloride [Moles/Vol] 106 mmol/L 98-107 [facility] Work Phone: Eosinophils/100 WBC (Bld) 1.4 % 0-5 [facility] Work Phone: Glucose [Mass/Vol] 107 mg/dL 74-106 [facility] Work Phone: Comment on above: Fasting Glucose resu lt from 100 to 125 mg/dL suggests IMPAIRED HOMEOSTASIS per A.D.A. criteria. Neutrophils (Bld) [#/Vol] 5.7 10*3/uL 2.0-7.7 [facility] Work Phone: Neutrophils/100 WBC (Bld) 72.4 % 47-70 [facility] Work Phone: Potassium [Moles/Vol] 3.7 mmol/L 3.5-5.1 [facility] Work Phone: Sodium [Moles/Vol] 141 mmol/L 136-145 [facility] Work Phone: WBC (Bld) [#/Vol] 7.9 10*3/uL 4.4-11.0 [facility] Work Phone: Blood erythrocytes count (nu mber/volume)on 12-21-2021 RBC (Bld) [#/Vol] 4.85 10*6/uL 4.6-6.2 [facility] Work Phone: Blood hemoglobin measurement (mass/volume)on 12-21-2021 Hemoglobin (Bld) [Mass/Vol] 14.5 g/dL 13.0-16.5 [facility] Work Phone: Blood lymphocytes/100 leukoc yteson 12-21-2021 Lymphocytes/100 WBC (Bld) 15.5 % 19-41 [facility] Work Phone: Blood monocytes/100 leukocyt eson 12-21-2021 Monocytes/100 WBC (Bld) 9.9 % 0-10 [facility] Work Phone: Blood platelet mean volumeon 12-21-2021 Platelet mean volume (Bld) [Entitic vol] 10.2 fL 6.2-12.0 [facility] Work Phone: Determination of erythrocyte mean corpuscular volume (MCV)on 12-21-2021 MCV (RBC) [Entitic vol] 92.0 fL 80-94 [facility] Work Phone: Hematocrit Auto (Bld) [Volum e fraction]on 12-21-2021 Hematocrit (Bld) [Volume fraction] 44.6 % 40-54 [facility] Work Phone: INR in Blood by Coagulation assayon 12-21-2021 INR Coag (Bld) [Relative time] 2.3 {INR} [facility] Work Phone: Laboratory - Chemistry and C hemistry - challengeon 12-21-2021 CO2 [Moles/Vol] 29.0 mmol/L 21.0-32.0 [facility] Work Phone: Urea nitrogen/Creatinine [Mass ratio] 21.8 mg/mg 10-20 [facility] Work Phone: Laboratory - Coagulationon aPTT Coag (Bld) [Time] 36.6 s 24.1-36.2 [facility] Work Phone: PT Coag (PPP) [Time] 24.7 s 11.7-14.9 [facility] Work Phone: Laboratory - Hematology and Cell countson 12-21-2021 Erythrocyte distribution width (RBC) [Entitic vol] 42.2 fL 35.1-43.9 [facility] Work Phone: Erythrocyte distribution width (RBC) [Ratio] 12.5 % 11.6-14.6 [facility] Work Phone: Immature granulocytes/100 WBC (Bld) 0.400 % 0.0-0.9 [facility] Work Phone: Comment on above: IG% - Immature Granu locytes (promyelocytes, myelocytes and metamyelocytes) > 1% indicates that a LEFT SHIFT is Present. MCH (RBC) [Entitic mass] 29.9 pg 27.0-32.0 [facility] Work Phone: Nucleated RBC/100 WBC (Bld) [Ratio] 0 % 0-5 [facility] Work Phone: MCHC Auto (RBC) [Mass/Vol]on 12-21-2021 MCHC (RBC) [Mass/Vol] 32.5 g/dL 32-36 [facility] Work Phone: No Panel Informationon 12-21 Estimated Creatinine Clearance Calc 66.90 ml/min [facility] Work Phone: Estimated GFR (MDRD) Amer 107 mL/min >60 [facility] Work Phone: Comment on above: GFR Calc Estimated GFR (MDRD) Non-Af Amer 88 mL/min >60 [facility] Work Phone: Comment on above: Non- GFR Calc Troponin I High Sensitivity 13 pg/mL 3.0-78.0 [facility] Work Phone: Comment on above: Please Note: New Hiwot t Units and Gender Specific Reference Ranges. For more information see Policy Stat Procedure [place] High Sensitivity Troponin (TNIH) and attachments. Platelets bldon 12-21-2021 Platelets (Bld) [#/Vol] 241 10*3/uL 150-450 [facility] Work Phone: Serum or plasma calcium alvaro urement (mass/volume)on 12-21-2021 Calcium [Mass/Vol] 9.2 mg/dL 8.5-10.1 [facility] Work Phone: Serum or plasma creatinine m easurement (mass/volume)on 12-21-2021 Creatinine [Mass/Vol] 0.87 mg/dL 0.70-1.30 [facility] Work Phone: Comment on above: The validity of the calculated GFR & GFRAA in patients over 70 years has not been determined. Clinical correlation is essential. Serum or plasma urea nitroge n measurement (mass/volume)on 12-21-2021 Urea nitrogen [Mass/Vol] 19 mg/dL 10-07 [facility] Work Phone: Thin prep Papanicolaou smear with manual screeningon 12-21-2021 Thin prep Papanicolaou smear with manual screening 6 08-04 [facility] Work Phone: CBC panel Auto (Bld)on 07-08 Erythrocyte distribution width (RBC) [Ratio] 13.1 % 11.5 - 15.0 % [facility] Hematocrit (Bld) [Volume fraction] 49.5 % 39.0 - 51.0 % [facility] Hemoglobin (Bld) [Mass/Vol] 15.9 g/dL 13.0 - 17.0 g/dL [facility] MCH (RBC) [Entitic mass] 29.6 pg 26.0 - 34.0 pg [facility] MCHC (RBC) [Mass/Vol] 32.1 g/dL 30.5 - 36.0 g/dL [facility] MCV (RBC) [Entitic vol] 92.2 fL 80.0 - 100.0 fL [facility] Nucleated RBC (Bld) [#/Vol] 10*3/uL <0.01 k/uL [facility] Platelet mean volume (Bld) [Entitic vol] 10.7 fL 9.0 - 12.7 fL [facility] Platelets (Bld) [#/Vol] 235 10*3/uL 150 - 400 k/uL [facility] RBC (Bld) [#/Vol] 5.37 10*6/uL 4.20 - 6.00 m/uL [facility] WBC (Bld) [#/Vol] 10.33 10*3/uL 3.70 - 11.00 k/uL [facility] XR Lumbar spine 3 Viewson IMPRESSION: 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 Director Corporate Security: [employer] Transcribe Date/Time: Mar 13 2020 8:34A Dictated by : GABRIELLE BENTLEY MD This examination was interpreted and the report reviewed and electronically signed by: GABRIELLE BENTLEY MD on Mar 13 2020 8:35AM [facility] DIVISION OF RADIOLOGY * * [...] spine are presented. FINDINGS: There are five gjy-kfh-dyygbem lumbar vertebrae. No fracture or subluxations are noted. L5-S1 disc space narrowing is demonstrated. There is significant osteophyte formation. Kissing spine seen on lateral view. DIVISION OF RADIOLOGY Provider, [facility] - 03/13/2020 * * *Final Report* * [...] spine are presented. FINDINGS: There are five miu-mti-owpbsqe lumbar vertebrae. No fracture or subluxations are noted. L5-S1 disc space narrowing is demonstrated. There is significant osteophyte formation. Kissing spine seen on lateral view. 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 Director Corporate Security: [employer] Transcribe Date/Time: Mar 13 2020 8:34A Dictated by : GABRIELLE BENTLEY MD This examination was interpreted and the report reviewed and electronically signed by: GABRIELLE BENTLEY MD on Mar 13 2020 8:35AM EST [facility] XR Lumbar spine 3 ViewsOrder ed By: Ccf Provider on 03-13-2020 [facility] XR Lumbar spine 3 Viewson Radiology Study observation (narrative) [facility] PROGRESSon 06-09-2017 PROGRESS HNO ID: [id number] Author: Vesta Marin PSR Service: (none) Author Type: (none) Type: Progress Notes Filed: 06/09/2017 4:13 PM Note Text: Spoke with the patient and scheduled his Corotid Doppler on June 24, 2017 at 9:00 am Normal [facility] CNOVon 06-02-2017 CNOV Office Visit (AGCARDWST) -------ROBY FLORES ([id number]) 1935 MDate Time Provider Department06/02/17 9:00 AM [...] - METBeta jazmin for ASHD with prior GA or prior LVEFANDlt;40 (NQF 0070) - N/ABeta jazmin for HF with prior LVEFANDlt;40 (NQ 0083) - N/AACE-I or ARB for ASHD with DM or prior LVEFANDlt;40 (NQ 0066) - N/AStatin therapy for ASHD or FHL or DM - METBMI documented and plan if ANDgt;25 ([facility] 0421) - lifestyle recommendation formTobacco use screening and referral ([facility] 0028) - lifestyle recommendation formRecommendation for whole food, plant based diet - lifestyle recommendation formCLINICAL IMPRESSION/PLAN:Roby Flores is doing well. His blood pressure is somewhat low. He wasadvised to decrease fosinopril to 20 milligrams daily and update me with vitalsigns in 2 weeks.He will be getting labs from the [facility] in the near future and I've askedfor a copy.INR has been within range. He is due today.I will see him in 8 months or as needed. If there is increased chest pain orrecurrent syncope, he has been advised to contact me.Written and verbal health teaching given to patient, patient verbalizesunderstanding and agrees with treatment plan.This note was generated using [employer] voice recognition system, and there may besome [...] There is no significantchange.Electronic ally Signed:Darrell Oliveira [facility] 2017 9:15 [facility]: Carmen Vasquez MD 06/02/2017 9:21 AM [...] 24, 2017 at9:00 amReferring Provider: DARRELL OLIVEIRA [[id number]]Allergies As of Date: 06/02/2017(No Known Allergies)Date Reviewed: 06/02/2017Reviewed by: Russell Kyle - Fully AssessedReason for Visit: Recheck [92]Primary Visit Diagnosis:ASHD (arteriosclerotic heart disease) [I25.10] Other Visit Diagnosis:PAF (paroxysmal atrial fibrillation) ([facility]) [I48.0]Order(s):ECG B/O W INTERP (MED OFFICE) [ECG06] Order #: [id number] Fosinopril Sodium 40 mg tabletTake 1/2 tablet [...] FOR* 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 Please give serious thought to the following areas and commit to making senior project accountant changes. EAT A WHOLE FOOD, PLANT BASED [...] on file. Cosign accepted by STAS MORA MD[[id number]] on 09/30/2016 2:01 PM Fosinopril Sodium 40 [...] on file.Follow-up and Disposition History RecordedEncounter Number: [id number] Status:Closed by DARRELL OLIVEIRA MD on 06/02/17 [facility] PROGRESSon 06-02-2017 PROGRESS HNO ID: [id number] thor: Darrell Stahl: (none)Author Type: PhysicianType: Progress NotesFiled: 06/02/2017 9:31 AMNote Text:PERTINENT CARDIAC HISTORYASHD - PCI LAD 2003HTNHLCarotid diseaseSyncopePAFADHERENCE TO GUIDELINESACE-I or ARB for HF with prior LVEF<40 (NQF 0081) - N/AASA or Plavix for ASHD (NQF 0067) - METBeta jazmin for ASHD with prior GA or prior LVEF<40 (NQF 0070) - N/ABeta [...] weeks.He will be getting labs from the [facility] in the near future and I'veasked for a copy.INR has been within range. He is due today.I will see him in 8 months or as needed. If there is increased chest painor recurrent syncope, he has been advised to contact me.Written and verbal health teaching given to patient, patient verbalizesunderstanding and agrees with treatment plan.This note was generated using [employer] voice recognition system, and theremay be some [...] ectopics. 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 Stas Mora MD Work Phone: [facility] 09-06-2024 14:15-0400 Diastolic blood pressure 88 mm[Hg] Dr. Stas Mora MD Work Phone: [facility] 09-06-2024 14:15-0400 Heart rate 78 /min Dr. Stas Mora MD Work Phone: [facility] 09-06-2024 14:15-0400 Respiratory rate 18 /min Dr. Stas Mora MD Work Phone: [facility] 09-06-2024 14:15-0400 SaO2% (BldA) [Mass fraction] 97 % Dr. Stas Mora MD Work Phone: [facility] 09-06-2024 14:15-0400 Systolic blood pressure 137 mm[Hg] Dr. Stas Mora MD Work Phone: 8(380)553-335977 [place] [address] 09-04-2024 12:05-0400 Inhaled oxygen flow rate 2 L/min Dr. Stas Mora MD Work Phone: 2(349)950-186677 [place] [address] 09-01-2024 11:52-0400 Body height 182.[address] Stas Mora MD Work Phone: 3(566)097-177977 [place] [address] 09-01-2024 11:52-0400 Body mass index (BMI) [Ratio] 21.6 kg/m2 Dr. Stas Mora MD Work Phone: 3(448)561-152777 [place] [address] 09-01-2024 11:52-0400 Body weight 72.[address] Stas Mora MD Work Phone: 9(932)236-884377 [place] [address] 09-01-2024 11:00-0400 Diastolic blood pressure 79 mm[Hg] Dr. Stas Mora MD Work Phone: 7(889)328-662577 [place] [address] 09-01-2024 11:00-0400 Heart rate 70 /min Dr. Stas Mora MD Work Phone: 5(810)505-083377 [place] [address] 09-01-2024 11:00-0400 Respiratory rate 18 /min Dr. Stas Mora MD Work Phone: 3(411)654-315677 [place] [address] 09-01-2024 11:00-0400 SaO2% (BldA) [Mass fraction] 98 % Dr. Stas Mora MD Work Phone: 5(609)718-857677 [place] [address] 09-01-2024 11:00-0400 Systolic blood pressure 180 mm[Hg] Dr. Stas Mora MD Work Phone: 3(667)478-716877 [place] [address] 09-01-2024 09:52-0400 Body temperature 98.9 [degF] Dr. Stas Mora MD Work Phone: 7(844)572-996877 [place] [address] 09-01-2024 07:31-0400 Body height 182.[address] Stas Mora MD Work Phone: 9(309)456-073177 [place] [address] 09-01-2024 07:31-0400 Body mass index (BMI) [Ratio] 23.4 kg/m2 Dr. Stas Mora MD Work Phone: [facility] 09-01-2024 07:31-0400 Body weight 78.[address] Stas Mora MD Work Phone: [facility] 08-31-2024 11:05-0400 Body mass index (BMI) [Ratio] 22.35 kg/m2 Luciana Cisneros MD Work Phone: [facility] 08-31-2024 11:05-0400 Body weight 73.94 kg Luciana Cisneros MD Work Phone: [facility] 08-31-2024 11:05-0400 Diastolic blood pressure 74 mm[Hg] Luciana Cisneros MD Work Phone: [facility] 08-31-2024 11:05-0400 Heart rate 74 /min Luciana Cisneros MD Work Phone: [facility] 08-31-2024 11:05-0400 Respiratory rate 12 /min Luciana Cisneros MD Work Phone: [facility] 08-31-2024 11:05-0400 SaO2% (BldA) [Mass fraction] 98 % Luciana Cisneros MD Work Phone: [facility] 08-31-2024 11:05-0400 Systolic blood pressure 124 mm[Hg] Luciana Cisneros MD Work Phone: [facility] 07-28-2024 11:12-0400 Diastolic blood pressure 78 mm[Hg] Stas Mora MD Work Phone: [facility] 07-28-2024 11:12-0400 Systolic blood pressure 136 mm[Hg] Stas Mora MD Work Phone: [facility] 07-28-2024 11:10-0400 Body mass index (BMI) [Ratio] 22.4 kg/m2 Stas Mora MD Work Phone: [facility] 07-28-2024 11:10-0400 Body weight 74.1 kg Stas Mora MD Work Phone: [facility] 07-28-2024 11:10-0400 Heart rate 56 /min Stas Mora MD Work Phone: [facility] 07-28-2024 11:10-0400 Respiratory rate 16 /min Stas Mora MD Work Phone: [facility] 06-01-2024 14:52-0400 Body height 181.9 cm Luciana Cisneros MD Work Phone: [facility] 06-01-2024 14:52-0400 Body mass index (BMI) [Ratio] 22.33 kg/m2 Luciana Cisneros MD Work Phone: [facility] 06-01-2024 14:52-0400 Body weight 73.85 kg Luciana Cisneros MD Work Phone: [facility] 06-01-2024 14:52-0400 Diastolic blood pressure 60 mm[Hg] Luciana Cisneros MD Work Phone: [facility] 06-01-2024 14:52-0400 Heart rate 46 /min Luciana Cisneros MD Work Phone: [facility] 06-01-2024 14:52-0400 SaO2% (BldA) [Mass fraction] 98 % Luciana Cisneros MD Work Phone: [facility] 06-01-2024 14:52-0400 Systolic blood pressure 132 mm[Hg] Luciana Cisneros MD Work Phone: [facility] 05-26-2024 09:18-0500 Diastolic blood pressure 82 mm[Hg] Stas Mora MD Work Phone: [facility] 05-26-2024 09:18-0500 Systolic blood pressure 144 mm[Hg] Stas Mora MD Work Phone: [facility] 05-26-2024 09:06-0500 Body mass index (BMI) [Ratio] 22.19 kg/m2 Stas Mora MD Work Phone: [facility] 05-26-2024 09:06-0500 Body weight 73.5 kg Stas Mora MD Work Phone: [facility] 05-26-2024 09:06-0500 Heart rate 56 /min Stas Mora MD Work Phone: [facility] 05-26-2024 09:06-0500 Respiratory rate 18 /min Stas Mora MD Work Phone: [facility] 04-27-2024 09:34-0500 Body height 182 cm Luciana Cisneros MD Work Phone: [facility] 04-27-2024 09:34-0500 Body mass index (BMI) [Ratio] 22.51 kg/m2 Luciana Cisneros MD Work Phone: [facility] 04-27-2024 09:34-0500 Body weight 74.57 kg Luciana Cisneros MD Work Phone: [facility] 04-27-2024 09:34-0500 Diastolic blood pressure 62 mm[Hg] Luciana Cisneros MD Work Phone: [facility] 04-27-2024 09:34-0500 Heart rate 60 /min Luciana Cisneros MD Work Phone: [facility] 04-27-2024 09:34-0500 SaO2% (BldA) [Mass fraction] 98 % Luciana Cisneros MD Work Phone: [facility] 04-27-2024 09:34-0500 Systolic blood pressure 110 mm[Hg] Luciana Cisneros MD Work Phone: [facility] 11-26-2023 10:33-0400 Diastolic blood pressure 80 mm[Hg] Stas Mora MD Work Phone: [facility] 11-26-2023 10:33-0400 Systolic blood pressure 144 mm[Hg] Stas Mora MD Work Phone: [facility] 11-26-2023 10:22-0400 Body mass index (BMI) [Ratio] 21.95 kg/m2 Stas Mora MD Work Phone: [facility] 11-26-2023 10:22-0400 Body weight 71.4 kg Stas Mora MD Work Phone: [facility] 11-26-2023 10:22-0400 Heart rate 60 /min Stas Mora MD Work Phone: [facility] 11-26-2023 10:22-0400 Respiratory rate 18 /min Stas Mora MD Work Phone: [facility] 09-15-2023 08:38-0400 Body mass index (BMI) [Ratio] 24.52 kg/m2 Stas Mora MD Work Phone: [facility] 09-15-2023 08:38-0400 Body weight 79.74 kg Stas Mora MD Work Phone: [facility] 09-15-2023 08:38-0400 Diastolic blood pressure 84 mm[Hg] Stas Mora MD Work Phone: [facility] 09-15-2023 08:38-0400 Heart rate 76 /min Stas Mora MD Work Phone: [facility] 09-15-2023 08:38-0400 Respiratory rate 18 /min Stas Mora MD Work Phone: [facility] 09-15-2023 08:38-0400 Systolic blood pressure 138 mm[Hg] Stas Mora MD Work Phone: [facility] 08-14-2023 09:57-0400 Body mass index (BMI) [Ratio] 22.59 kg/m2 Stas Mora MD Work Phone: [facility] 08-14-2023 09:57-0400 Body weight 73.48 kg Stas Mora MD Work Phone: [facility] 08-14-2023 09:57-0400 Diastolic blood pressure 80 mm[Hg] Stas Mora MD Work Phone: [facility] 08-14-2023 09:57-0400 Heart rate 64 /min Stas Mora MD Work Phone: [facility] 08-14-2023 09:57-0400 Respiratory rate 14 /min Stas Mora MD Work Phone: [facility] 08-14-2023 09:57-0400 Systolic blood pressure 140 mm[Hg] Stas Mora MD Work Phone: [facility] 06-01-2023 15:08-0400 Body weight 75.75 kg Stas Mora MD Work Phone: [facility] 06-01-2023 15:08-0400 Diastolic blood pressure 90 mm[Hg] Stas Mora MD Work Phone: [facility] 06-01-2023 15:08-0400 Heart rate 82 /min Stas Mora MD Work Phone: [facility] 06-01-2023 15:08-0400 Respiratory rate 16 /min Stas Mora MD Work Phone: [facility] 06-01-2023 15:08-0400 SaO2% (BldA) [Mass fraction] 100 % Stas Mora MD Work Phone: [facility] 06-01-2023 15:08-0400 Systolic blood pressure 140 mm[Hg] Stas Mora MD Work Phone: [facility] 02-16-2023 13:57-0500 Diastolic blood pressure 62 mm[Hg] Stas Mora MD Work Phone: [facility] 02-16-2023 13:57-0500 Heart rate 62 /min Stas Mora MD Work Phone: [facility] 02-16-2023 13:57-0500 Respiratory rate 16 /min Stas Mora MD Work Phone: [facility] 02-16-2023 13:57-0500 Systolic blood pressure 110 mm[Hg] Stas Mora MD Work Phone: [facility] 02-10-2023 16:59-0500 Diastolic blood pressure 68 mm[Hg] [facility] 02-10-2023 16:59-0500 Heart rate 79 /min [facility] 02-10-2023 16:59-0500 Respiratory rate 12 /min [facility] 02-10-2023 16:59-0500 SaO2% (BldA) [Mass fraction] 98 % [facility] 02-10-2023 16:59-0500 Systolic blood pressure 153 mm[Hg] [facility] 02-10-2023 14:37-0500 Body mass index (BMI) [Ratio] 22.1 kg/m2 [facility] 02-10-2023 14:37-0500 Body weight 74.3 kg [facility] 02-10-2023 14:32-0500 Body height 182.88 cm [facility] 02-10-2023 14:32-0500 Body temperature 98 [degF] [facility] 11-17-2022 17:22-0400 Diastolic Blood Pressure Non-Invasive 68 1 STERLING DAIGLERingly [facility] 11-17-2022 17:22-0400 Heart rate 76 /min STERL[facility] DAIGLERingly [facility] 11-17-2022 17:22-0400 Respiratory rate 18 /min STERLING DAIGLET [facility] 11-17-2022 17:22-0400 Systolic Blood Pressure Non-Invasive 126 1 STERLING CISNEROSSerious [employer] [facility] 11-17-2022 15:23-0400 Body height 185.4 cm STERLING CISNEROSSerious [employer] [facility] 11-17-2022 15:23-0400 Body temperature 97.88 [degF] STERLING DAIGLET [facility] 11-17-2022 15:23-0400 Body weight 79.6 kg STERLING DAIGLET [facility] 11-17-2022 15:23-0400 Diastolic Blood Pressure Non-Invasive 70 1 STERLING LYNCH DO [facility] 11-17-2022 15:23-0400 Heart rate 89 /min STERLING LYNCH DO [facility] 11-17-2022 15:23-0400 Respiratory rate 18 /min STERLING LYNCH DO [facility] 11-17-2022 15:23-0400 Systolic Blood Pressure Non-Invasive 134 1 STERLING LYNCH DO [facility] 08-26-2022 13:12-0400 Body height 180.3 cm Stas Mora MD Work Phone: [facility] 08-26-2022 13:12-0400 Body weight 78.74 kg Stas Mora MD Work Phone: [facility] 08-26-2022 13:12-0400 Diastolic blood pressure 74 mm[Hg] Stas Mora MD Work Phone: [facility] 08-26-2022 13:12-0400 Heart rate 66 /min Stas Mora MD Work Phone: [facility] 08-26-2022 13:12-0400 Respiratory rate 16 /min Stas Mora MD Work Phone: [facility] 08-26-2022 13:12-0400 Systolic blood pressure 122 mm[Hg] Stas Mora MD Work Phone: [facility] 12-26-2021 11:22-0400 Body weight 78.56 kg Stas Mora MD Work Phone: [facility] 12-26-2021 11:22-0400 Diastolic blood pressure 80 mm[Hg] Stas Mora MD Work Phone: [facility] 12-26-2021 11:22-0400 Heart rate 58 /min Stas Mora MD Work Phone: [facility] 12-26-2021 11:22-0400 Respiratory rate 16 /min Stas Mora MD Work Phone: [facility] 12-26-2021 11:22-0400 Systolic blood pressure 142 mm[Hg] Stas Mora MD Work Phone: [facility] 12-22-2021 11:13-0400 Body temperature 97.6 [degF] Dr. Stas Mora Work Phone: [facility] Work Phone: 12-22-2021 11:13-0400 Diastolic blood pressure 58 mm[Hg] Dr. Stas Mora Work Phone: [facility] Work Phone: 12-22-2021 11:13-0400 Heart rate 63 /min Dr. Stas Mora Work Phone: [facility] Work Phone: 12-22-2021 11:13-0400 Respiratory rate 16 /min Dr. Stas Mora Work Phone: [facility] Work Phone: 12-22-2021 11:13-0400 SaO2% (BldA) [Mass fraction] 96 % Dr. Stas Mora Work Phone: [facility] Work Phone: 12-22-2021 11:13-0400 Systolic blood pressure 142 mm[Hg] Dr. Stas Mora Work Phone: [facility] Work Phone: 12-21-2021 20:06-0400 Body height 182.[address] Stas Mora Work Phone: [facility] Work Phone: 12-21-2021 20:06-0400 Body mass index (BMI) [Ratio] 22.6 kg/m2 Dr. Stas Mora Work Phone: [facility] Work Phone: 12-21-2021 20:06-0400 Body weight 75.[address] Stas Mora Work Phone: [facility] Work Phone: 12-21-2021 19:15-0400 Diastolic blood pressure 81 mm[Hg] [facility] Work Phone: 12-21-2021 19:15-0400 Heart rate 70 /min [facility] Work Phone: 12-21-2021 19:15-0400 Respiratory rate 18 /min [facility] Work Phone: 12-21-2021 19:15-0400 SaO2% (BldA) [Mass fraction] 96 % [facility] Work Phone: 12-21-2021 19:15-0400 Systolic blood pressure 171 mm[Hg] [facility] Work Phone: 12-21-2021 19:02-0400 Body temperature 97.6 [degF] [facility] Work Phone: 12-21-2021 18:17-0400 Body height 182.88 cm [facility] Work Phone: 12-21-2021 18:17-0400 Body mass index (BMI) [Ratio] 24.2 kg/m2 [facility] Work Phone: 12-21-2021 18:17-0400 Body weight 80.9 kg [facility] Work Phone: 09-05-2021 11:21-0400 Body height 182.9 cm Stas Mora MD Work Phone: [facility] 09-05-2021 11:21-0400 Body weight 80.2 kg Stas Mora MD Work Phone: [facility] 09-05-2021 11:21-0400 Diastolic blood pressure 70 mm[Hg] Stas Mora MD Work Phone: [facility] 09-05-2021 11:21-0400 Heart rate 62 /min Stas Mora MD Work Phone: [facility] 09-05-2021 11:21-0400 Respiratory rate 16 /min Stas Mora MD Work Phone: [facility] 09-05-2021 11:21-0400 Systolic blood pressure 136 mm[Hg] Stas Mora MD Work Phone: [facility] 07-08-2021 10:41-0400 Body weight 83.55 kg Stas Mora MD Work Phone: [facility] 07-08-2021 10:41-0400 Diastolic blood pressure 78 mm[Hg] Stas Mora MD Work Phone: [facility] 07-08-2021 10:41-0400 Heart rate 60 /min Stas Mora MD Work Phone: [facility] 07-08-2021 10:41-0400 Respiratory rate 16 /min Stas Mora MD Work Phone: [facility] 07-08-2021 10:41-0400 Systolic blood pressure 120 mm[Hg] Stas Mora MD Work Phone: [facility] Encounters Encounter Date Encounter Type Care Provider Facility Start: 11-22-2024 ambulatory Shayy GAMA Fa cility:[facility] Start: 11-02-2024 ambulatory Shayy Curtis OLS Fa cility:[facility] Start: 11-02-2024 [facility] Start: 10-31-2024 ambulatory Shayy Curtis OLS Fa cility:[facility] Start: 10-31-2024 Registered Referred Shayy Curtis MD -[facility] Start: 10-25-2024 End: 10-25-[address] Stas Mora MD Work Phone: -[facility] Start: 10-25-2024 End: 10-25-[address] Shayy Curtis MD -[facility] Work Phone: Start: 10-20-2024 End: 10-20-[address] Stas Mora MD Work Phone: -[facility] Start: 10-20-2024 End: 10-20-2024 Patient encounter procedure Halina HO -[facility] Work Phone: Start: 10-06-2024 ambulatory Shayy GAMA Fa cility:[facility] Start: 10-06-2024 Registered Referred Shayy DIXON [facility] Start: 10-05-2024 ambulatory Stas Mora Facilit y:[facility] Start: 10-05-2024 Registered Referred Shayy DIXON - [facility] Start: 09-30-2024 End: 09-30-[address] Stas Mora MD Work Phone: -[facility] Start: 09-30-2024 End: 09-30-2024 Patient encounter procedure Halina HO -[facility] Work Phone: Start: 09-29-2024 ambulatory Stas Mora Facilit y:[facility] Start: 09-29-2024 Registered Referred Shayy Cardozo Start: 09-28-2024 ambulatory Stas Mora Facilit y:[facility] Start: 09-28-2024 Registered Referred Shayy Cardozo Start: 09-26-2024 ambulatory Shayy GAMA Fa cility:[facility] Start: 09-26-2024 Registered Referred Shayy Cardozo Start: 09-23-2024 ambulatory Stas Mora Facilit y:[facility] Start: 09-23-2024 Registered Referred Shayy Cardozo Start: 09-21-2024 End: 09-22-2024 Telephone encounter Stas Mora MD Work Phone: [facility] Start: 09-21-2024 ambulatory Stas Mora Facilit y:[facility] Start: 09-21-2024 Registered Referred Shayy Cardozo Start: 09-20-2024 End: 09-20-[address] Stas Mora MD Work Phone: [facility] Start: 09-20-2024 End: 09-20-[address] Shayy Curtis MD -[facility] Work Phone: Start: 09-19-2024 ambulatory Shayy Curtis OLS Fa cility:[facility] Start: 09-19-2024 Registered Referred Shayy Cardozo Start: 09-15-2024 ambulatory Efewongbe Gabee OLS Fa cility:[facility] Start: 09-15-2024 Registered Referred Shayy Cardozo Start: 09-14-2024 ambulatory Efbaldomero [place] OLS Fa cility:[facility] Start: 09-14-2024 Registered Referred Shayy Cardozo Start: 09-12-2024 ambulatory Efhollietimmy [place] OLS Fa cility:[facility] Start: 09-12-2024 Registered Referred Shayy Cardozo Start: 09-08-2024 End: 09-08-2024 Patient encounter procedure Halina Carmona [facility] Work Phone: Start: 09-08-2024 End: 09-08-[address] Stas Mora MD Work Phone: [facility] Start: 09-08-2024 Registered Referred Shayy Cardozo Start: 09-07-2024 End: 09-07-2024 [facility] Start: 09-07-2024 End: 09-07-[address] Stas Mora MD Work Phone: [facility] Start: 09-07-2024 Registered Referred Shayy Curtis MD -[facility] Start: 09-06-2024 Non-patient / Non-visit Dr. Navid Dominguez MD -[facility] Work Phone: Start: 09-05-2024 Non-patient / Non-visit Dr. Navid Dominguez MD -[facility] Work Phone: Start: 09-04-2024 Non-patient / Non-visit Dr. Jia Wells MD -[facility] Work Phone: Start: 09-03-2024 Non-patient / Non-visit Dr. Jia Wells MD -[facility] Work Phone: Start: 09-02-2024 Non-patient / Non-visit Dr. Jia Wells MD -[facility] Work Phone: Start: 09-02-2024 ambulatory [facility] Monisha Jimenez Facility :[facility] Start: 09-02-2024 End: 09-06-2024 Evaluation and management of inpatient Dr. Navid Dominguez MD -[facility] Work Phone: Start: 09-01-2024 End: 09-01-2024 Telephone encounter Russell Aguayo [facility] Work Phone: [facility] Comment on above: Medication Problem ( Cost) Start: 09-01-2024 ambulatory Kathy Monisha [facility] Facility :[facility] Start: 09-01-2024 Evaluation and management of inpatient Dr. Kathy Wells MD -[facility] Work Phone: Start: 09-01-2024 Non-patient / Non-visit Dr. Jia Wells MD -[facility] Work Phone: Start: 09-01-[address] Stas Mora MD Work Phone: [facility] Work Phone: Start: 08-31-2024 End: 08-31-2024 Telephone encounter Coretta Jalloh [facility] Tele[facility] Comment on above: Anticoagulation Tele phone Fu (Home INR result ) Start: 08-31-2024 End: 08-31-2024 ambulatory STAS MORA Facility:[facility] Start: 08-31-2024 End: 08-31-2024 Office outpatient visit 25 minutes Luciana Cisneros MD Work Phone: Geriatrics Comment on above: Moderate dementia wi thout behavioral disturbance, psychotic disturbance, mood disturbance, or anxiety, unspecified dementia type (HCC) (Primary Dx); Hallucinations; Screening for depression; Encounter for screening examination for other mental health and behavioral disorders Start: 08-31-2024 End: 08-31-2024 ambulatory LUCIANA CISNEROS Facility:[facility] Start: 08-03-2024 End: 08-03-2024 Telephone encounter Coretta Jalloh [facility]ulatory [facility] Comment on above: Anticoagulation Tele phone Fu (Lab INR result) Start: 08-03-2024 End: 08-03-2024 ambulatory STAS Maya [facility] Facility:[facility] Start: 07-28-2024 End: 07-28-2024 Office outpatient visit 15 minutes Stas Mora MD Work Phone: [facility] [place] Comment on above: Bursitis of right el bow, unspecified bursa (Primary Dx) Start: 07-28-2024 End: 07-28-2024 ambulatory STAS MORA Facility:[facility] Start: 07-06-2024 End: 07-06-2024 [facility] Tele[facility] Comment on above: Anticoagulation Tele phone Fu (Lab INR result ) Start: 07-06-2024 End: 07-06-2024 ambulatory STAS Trejo [facility] Facility:[facility] Start: 06-29-2024 End: 06-29-2024 Telephone encounter Coretta Jalloh [facility] Comment on above: Anticoagulation Tele phone Fu (Lab INR result ) Start: 06-29-2024 End: 06-29-2024 ambulatory STAS MORA Facility:[facility] Start: 06-01-2024 End: 06-01-2024 Office consultation new/estab patient 80 min Luciana Cisneros MD Work Phone: Geriatrics Comment on above: Mixed dementia (HCC) (Primary Dx); Vascular parkinsonism (HCC) Start: 06-01-2024 End: 06-01-2024 ambulatory STAS MORA Facility:[facility] Start: 06-01-2024 End: 08-01-2024 Follow-up encounter Luciana Cisneros MD Work Phone: Geriatrics Start: 05-26-2024 End: 05-26-2024 Telephone encounter Luciana Cisneros MD Work Phone: Geriatrics Comment on above: Appointment (Resched ule for geriatric f/u) Start: 05-26-2024 End: 05-26-2024 ambulatory STAS MORA Facility:[facility] Start: 05-26-2024 End: 05-26-2024 Patient encounter procedure Stas Mora MD Work Phone: [facility] [place] Comment on above: Essential hypertensi on, benign (Primary Dx); Hyperlipidemia, unspecified hyperlipidemia type; Atherosclerosis 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, unspecified vessel or lesion type, unspecified whether bill moore's slough or transplanted heart; Paroxysmal atrial fibrillation (HCC); Edema of both lower legs; History of stroke with residual effects; Dementia, unspecified dementia severity, unspecified dementia type, unspecified whether behavioral, psychotic, or mood disturbance or anxiety (HCC) Start: 05-25-2024 End: 05-25-2024 Telephone encounter Paige Hickman [facility]ulatory Telemanagement Comment on above: Anticoagulation Tele phone Fu (Lab INR Result ) Start: 05-25-2024 End: 05-25-2024 ambulatory STAS MORA Facility:[facility] Start: 05-23-2024 ambulatory LUCIANA CISNEROS Facility :[id number] Start: 05-23-2024 End: 05-23-2024 Subsequent hospital visit by physician [facility] Work Phone: [facility] Comment on above: Cognitive impairment , mild, 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] Start: 04-28-2024 End: 04-29-2024 Telephone encounter Stas Mora MD Work Phone: [facility] [place] Comment on above: Results Start: 04-27-2024 End: 04-27-2024 Telephone encounter Coretta Jalloh [facility] Tele[facility] Comment on above: Anticoagulation Tele phone Fu (Lab INR result ) Start: 04-27-2024 End: 04-27-2024 ambulatory [facility] Facility:[facility] Start: 04-27-2024 End: 04-27-2024 Assmt & care planning pt w/cognitive impairment Luciana Cisneros MD Work Phone: Geriatrics Comment on above: Dementia, unspecifie d dementia severity, unspecified dementia type, unspecified whether behavioral, psychotic, or mood disturbance or anxiety (HCC) (Primary Dx); Cognitive impairment; Cognitive impairment, mild, so stated; Shuffling gait; Ambulatory dysfunction; Balance disorder Start: 04-27-2024 End: 04-27-2024 ambulatory [facility] Facility:[facility] Start: 04-25-2024 End: 04-25-2024 Telephone encounter Stas Mora MD Work Phone: [facility] [place] Comment on above: memory issues Start: 04-13-2024 End: 04-13-2024 Telephone encounter Coretta Jalloh [facility] Comment on above: Anticoagulation Tele phone Fu (Home INR result ) Start: 04-13-2024 End: 04-13-2024 ambulatory [facility] Facility:[facility] Start: 03-30-2024 End: 03-30-2024 Telephone encounter Coretta Jalloh [facility] Comment on above: Anticoagulation Tele phone Fu (Lab INR result ) Start: 03-30-2024 End: 03-30-2024 ambulatory STAS Trejo [facility] Facility:[facility] Start: 03-17-2024 End: 03-17-2024 Telephone encounter Josy Gandhi [facility] Comment on above: Anticoagulation Tele phone Fu (Lab INR result ) Start: 03-17-2024 End: 03-17-2024 ambulatory STAS MORA Facility:[facility] Start: 03-03-2024 End: 03-03-2024 Telephone encounter Elise Paredes [facility] Comment on above: Anticoagulation Tele phone Fu (Lab INR result) Start: 03-03-2024 End: 03-03-2024 [place] [place] Facility[place] Start: 02-10-2024 End: 02-10-2024 Telephone encounter Coretta Jalloh [facility] Comment on above: Anticoagulation Tele phone Fu (Lab INR result ) Start: 02-10-2024 End: 02-10-2024 ambulatory [facility] Facility:[facility] Start: 01-20-2024 End: 01-20-2024 Telephone encounter Coretta Gaelsarah [facility]ulatory Telemanagement Comment on above: Anticoagulation Tele phone Fu (Lab INR results ) Start: 01-20-2024 End: 01-20-2024 ambulatory STAS Maya [facility] Facility:[facility] Start: 01-04-2024 End: 01-04-2024 Telephone encounter Stas Mora MD Work Phone: [facility] [place] Comment on above: Medication Request Start: 12-24-2023 End: 12-24-2023 Telephone encounter Elise Paredes [facility] Tele[facility] Comment on above: Anticoagulation Tele phone Fu (Lab INR) Start: 12-23-2023 End: 12-23-2023 [facility] Start: 12-10-2023 End: 12-10-2023 Telephone encounter Elise Paredes [facility]ulatory Tele[facility] Comment on above: Anticoagulation Tele phone Fu (Lab INR) Start: 12-09-2023 End: 12-09-2023 ambulatory STAS Maya [facility] Facility:[facility] Start: 11-26-2023 End: 11-26-2023 Telephone encounter Elise Paredes [facility]ulatory [facility] Comment on above: Anticoagulation Tele phone Fu (Lab INR) Start: 11-26-2023 End: 11-26-2023 ambulatory STAS Trejo [facility] Facility:[facility] Start: 11-26-2023 End: 11-26-2023 Patient encounter procedure Stas Mora MD Work Phone: [facility] [place] Comment on above: Essential hypertensi on, benign (Primary Dx); Hyperlipidemia, unspecified hyperlipidemia type; Edema of both lower legs; Paroxysmal atrial fibrillation (HCC); History of stroke with residual effects; 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, psychotic disturbance, mood disturbance, or anxiety (HCC); Urinary frequency; Abnormal CBC Start: 11-18-2023 End: 11-18-2023 Telephone encounter Coretta Jalloh [facility] Comment on above: Anticoagulation Tele phone Fu (Home INR) Start: 11-16-2023 End: 11-16-2023 Refill Stas Mora MD Work Phone: [facility] [place] Comment on above: Refill Request Start: 10-14-2023 Telephone encounter Coretta Jalloh [facility] Ambulatory Telemanagement Comment on above: Anticoagulation Tele phone Fu (Home INR results ) Start: 09-16-2023 Telephone encounter Colleen Sommer [facility]ulatory Tele[facility] Comment on above: Anticoagulation Tele phone Fu Start: 09-15-2023 End: 09-15-2023 Patient encounter procedure Stas Mora MD Work Phone: [facility] Comment on above: Edema of both lower legs (Primary Dx) Start: 09-14-2023 End: 09-14-2023 ambulatory Nurse Intm/Famp Triage [facility] Work Phone: Nurse Phone Triage Comment on above: Leg swelling Start: 09-02-2023 Telephone encounter Coretta Tars[facility]ah [facility] Ambulatory Tele[facility] Comment on above: Anticoagulation Tele phone Fu (Lab INR results) Start: 08-26-2023 Telephone encounter Coretta Tars[facility]ah [facility] Amb[facility] Comment on above: Anticoagulation Tele phone Fu (Lab INR results ) Start: 08-19-2023 Telephone encounter Coretta Tarsarah [facility] Ambulatory [facility] Comment on above: Anticoagulation Tele phone Fu (Lab INR) Start: 08-14-2023 End: 08-14-2023 Patient encounter procedure Stas Mora MD Work Phone: [facility] Comment on above: Moderate vascular de mentia without behavioral disturbance, psychotic disturbance, mood disturbance, or anxiety (HCC) (Primary Dx); Essential hypertension, benign; Paroxysmal atrial fibrillation (HCC) Start: 08-12-2023 Telephone encounter Coretta Tarsarah [facility] Ambulatory Telemanagement Comment on above: Anticoagulation Tele phone Fu (Home INR results ) Start: 08-06-2023 ambulatory PAYTON IBANEZ DO Facil ity:A Start: 08-05-2023 Telephone encounter [facility] Comment on above: Anticoagulation Tele phone Fu (Home INR results ) Start: 07-29-2023 Telephone encounter Elena Lopez [facility] Comment on above: Anticoagulation Foll ow Up Start: 07-22-2023 Telephone encounter [facility] Comment on above: Anticoagulation Tele phone Fu (Lab INR results ) Start: 07-16-2023 Refill Elvis RASHID RN.HEDGE FUND ACCOUNTANT Work Phone: [facility] [place] Comment on above: Refill Request Start: 07-15-2023 Telephone encounter [facility] Comment on above: Anticoagulation Tele phone Fu (Lab INR results ) Start: 07-08-2023 Telephone encounter [facility] Comment on above: Anticoagulation Tele phone Fu (Lab INR ) Start: 07-02-2023 Telephone encounter [facility] Comment on above: Opened [...] Stas miranda MD Work Phone: [facility] [place] Comment on above: Anticoagulation Start: 06-08-2023 Telephone encounter Jenna singhof DIRECTIONAL BORE OPERATOR.HEDGE FUND ACCOUNTANT Work Phone: [facility] [place] Comment on above: Erroneous encounter- disregard Anticoagulation Start: 06-05-2023 Telephone encounter Jenna singhof DIRECTIONAL BORE OPERATOR.HEDGE FUND ACCOUNTANT Work Phone: [facility] [place] Comment on above: Results (Labs, Criti cleopatra ) Start: 06-04-2023 ambulatory Hortencia Winston RN NURSE O N CALL Comment on above: Results, Lab High Protime and INR Start: 06-04-2023 E-mail encounter babak m caregiver Jasmin Bell MD Work Phone: [facility] [place] Start: 06-04-2023 Telephone encounter Jenna Armenta nhof DIRECTIONAL BORE OPERATOR.HEDGE FUND ACCOUNTANT Work Phone: [facility] [place] Comment on above: Results; Orders (Lab s ) Start: 06-03-2023 Telephone encounter Coretta Tarcy [facility] Ambulatory Telemanagement Comment on above: Anticoagulation Tele phone Fu (Lab INR results ) Start: 06-01-2023 End: 06-01-2023 Patient encounter procedure Stas Mora MD Work Phone: [facility] [place] Comment on above: Essential hypertensi on, benign (Primary Dx); Paroxysmal atrial fibrillation (HCC); Atherosclerosis 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, unspecified vessel or lesion type, unspecified whether bill moore's slough or transplanted heart; Hyperlipidemia, unspecified hyperlipidemia type; History of stroke with residual effects; Speech disturbance, unspecified type Start: 05-27-2023 Telephone encounter [facility]ta [facility] Amb[facility] Comment on above: Anticoagulation Tele phone Fu (Lab INR results ) Start: 05-20-2023 Telephone encounter [facility]oretta [facility] Amb[facility] Tele[facility] Comment on above: Anticoagulation Tele phone Fu (Home INR results) Start: 05-13-2023 Telephone encounter Senia Phillips [facility] Ambulatory Telemanagement Comment on above: Anticoagulation Tele phone Fu (INR Lab Result) Start: 05-06-2023 Telephone encounter [facility]ta [facility] Ambulatory Tele[facility] Comment on above: Anticoagulation Tele phone Fu (Lab INR results ) Start: 04-29-2023 Telephone encounter [facility]ta [facility] Ambulatory Tele[facility] Comment on above: Anticoagulation Tele phone Fu (Home INR results ) Start: 02-20-2023 Telephone encounter Elise Paredes [facility] Comment on above: Anticoagulation Tele phone Fu (Lab INR) Start: 02-17-2023 Telephone encounter Stas miranda MD Work Phone: [facility] [place] Comment on above: Results Start: 02-17-2023 End: 02-17-2023 Subsequent hospital visit by physician Mri Radio [facility] (I-Stat/1.5t) Work Phone: Radiology Comment on above: Cerebral infarction, unspecified mechanism (HCC) [I63.9] Start: 02-16-2023 End: 02-16-2023 Patient encounter procedure Stas Mora MD Work Phone: [facility] Comment on above: Cerebral infarction, unspecified mechanism (HCC) (Primary Dx); Generalized weakness; Speech disturbance, unspecified type; Hyperlipidemia, unspecified hyperlipidemia type; Essential hypertension, benign; Paroxysmal atrial fibrillation (HCC) Start: 02-13-2023 Telephone encounter Elise Paredes [facility] Ambulatory Telemanagement Comment on above: Anticoagulation Tele phone Fu (Lab INR) Start: 02-10-2023 End: 02-10-2023 Emergency department patient visit [facility] Work Phone: Start: 02-06-2023 Telephone encounter Senia Cross [facility] P harmacy Ambulatory Telemanagement Comment on above: Anticoagulation Tele phone Fu (INR Lab Result) Start: 01-19-2023 Telephone encounter Paige [facility] Ambulatory Telemanagement Comment on above: Anticoagulation Tele phone Fu Start: 01-16-2023 Orders Only Stas newman MD Work Phone: [facility] Comment on above: 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 Dx); [...] Result) Start: 11-21-2022 Telephone encounter Jeimy Duong [facility] Comment on above: Anticoagulation Tele phone Fu (Lab INR result) Start: 11-17-2022 End: 11-17-2022 Emergency department patient visit NONE PHYSICIAN Facility:B Start: 11-17-2022 End: 11-17-2022 Emergency department patient visit STERLING LYNCH DO [facility] Start: 11-07-2022 Telephone encounter Senia [...] Result) Start: 10-17-2022 Telephone encounter Yomi Covarrubiaszman [facility] Comment on above: Anticoagulation Tele phone Fu (Lab INR Result/) urgent PT INR result Start: 09-26-2022 Telephone encounter Jeimy Rhoda [facility] Comment on above: Anticoagulation Tele phone Fu (Lab INR result) Start: 09-12-2022 Telephone encounter Jeimy Duong [facility] Comment on above: Anticoagulation Tele phone Fu (Lab INR result) Start: 08-26-2022 End: 08-26-2022 Patient encounter procedure Stas Mora MD Work Phone: [facility] [place] Comment on above: Encounter for Medica re annual wellness exam (Primary Dx); Paroxysmal atrial fibrillation (HCC); Essential hypertension, benign; Hyperlipidemia, unspecified hyperlipidemia type Start: 08-22-2022 Telephone encounter Senia Cross RPh [facility] Comment on above: Anticoagulation Tele phone Fu Start: 07-18-2022 Telephone encounter Sneia Cross RPh [facility] Comment on above: Anticoagulation Tele phone Fu (INR Lab Result) Start: 07-04-2022 Telephone encounter Lety Gandara [facility] Comment on above: Anticoagulation Tele phone Fu (Lab INR result ) Start: 06-23-2022 Refill Elvis RASHID RN.HEDGE FUND ACCOUNTANT Work Phone: [facility] [place] Comment on above: Refill Request Start: 06-20-2022 Telephone encounter Senia Cross RPh [facility] Comment on above: Anticoagulation Tele phone Fu (INR Lab Result) Start: 06-06-2022 Telephone encounter Senia Cross RPh [facility] Comment on above: Anticoagulation Tele phone Fu (INR Lab Result) Start: 05-30-2022 Telephone encounter Stas miranda MD Work Phone: [facility] [place] Comment on above: Opened In Error Start: 05-22-2022 Telephone encounter Jenna Armenta nhof DIRECTIONAL BORE OPERATOR.HEDGE FUND ACCOUNTANT Work Phone: [facility] [place] Comment on above: Results (X-ray hip) Start: 05-21-2022 End: 05-21-2022 Subsequent hospital visit by physician Jaymie [facility] [place] Work Phone: Radiology Comment on above: Left hip pain [M25.5 52] Start: 05-21-2022 ambulatory Fani Grace RN NURSE O N CALL Comment on above: Fall Fall; Hip Pain Start: 05-19-2022 Telephone encounter Stas miranda MD Work Phone: [facility] [place] Comment on above: Anticoagulation Start: 05-16-2022 Telephone [...] Result) Start: 04-04-2022 Telephone encounter Elise Paredes [facility] Comment on above: Anticoagulation Tele phone Fu (Lab INR) Start: 03-31-2022 Telephone encounter Stas miranda MD Work Phone: [facility] [place] Comment on above: Release Of Medical R ecords ([place] PCP) Start: 03-21-2022 Telephone encounter Carmelina Cruz [facility] Comment on above: Anticoagulation Tele phone Fu Start: 02-21-2022 Telephone encounter Kristian Ferguson MD Work Phone: [facility] Comment on above: Anticoagulation Start: 02-10-2022 Telephone encounter Sats miranda MD Work Phone: [facility] Comment on above: Opened In Error Start: 01-27-2022 Telephone encounter [facility] Comment on above: Anticoagulation Tele phone Fu (Lab INR Result) Start: 01-20-2022 Telephone encounter [facility] Comment on above: Anticoagulation Tele phone Fu (Lab INR Result) Start: 01-17-2022 Telephone encounter Stas miranda MD Work Phone: [facility] Comment on above: Anticoagulation; Cri tical Results (INR) Start: 01-13-2022 Refill Stas newman MD Work Phone: [facility] Comment on above: Refill Request; Refi ll Request Start: 01-03-2022 Telephone encounter Senia Phillips [facility] Tele[facility] Comment on above: Anticoagulation Tele phone Fu (INR Home Test Result) Start: 01-02-2022 Telephone encounter Stas miranda MD Work Phone: [facility] Comment on above: Results Start: 12-26-2021 End: 12-26-2021 Patient encounter procedure Stas Mora MD Work Phone: [facility] Comment on above: Hospital discharge f ollow-up (Primary Dx); Encounter for immunization; TIA (transient ischemic attack); Thyroid nodule; Essential hypertension, benign; Paroxysmal atrial fibrillation (HCC); Atherosclerosis 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, unspecified vessel or lesion type, unspecified whether bill moore's slough or transplanted heart Start: 12-22-2021 Non-patient / Non-visit Dr. Maria E Mora Work Phone: [facility] Start: 12-21-2021 Non-patient / Non-visit Dr. Maria E Mora Work Phone: [facility] Start: 12-21-2021 End: 12-22-2021 Evaluation and management of inpatient [facility] Start: 12-21-2021 End: 12-22-[address] Stas Mora Work Phone: [facility] Work Phone: Start: 12-20-2021 Telephone encounter Stas miranda MD Work Phone: [facility] Comment on above: Opened In Error Anticoagulation Tele phone Fu (INR Lab Result) Start: 12-06-2021 Telephone encounter Senia Alan [facility] Tele[facility] Comment on above: Anticoagulation Tele phone Fu (INR Lab Result) Start: 11-22-2021 Telephone encounter Janice Huang [facility] Tele[facility] Comment on above: Anticoagulation Tele phone Fu (INR) Start: 11-08-2021 Telephone encounter Stas miranda MD Work Phone: [facility] Comment on above: Opened In Error Anticoagulation Tele phone Fu (INR Lab Result) Start: 10-25-2021 Telephone encounter Janice Huang [facility] Comment on above: Anticoagulation Tele phone Fu (lab INR ) Start: 09-27-2021 Telephone encounter Yomi Covarrubiaszman [facility] Tele[facility] Comment on above: Anticoagulation Tele phone Fu (Lab INR Result) Start: 09-13-2021 Orders Only Stas newman MD Work Phone: [facility] Comment on above: 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 Dx); Encounter for monitoring Coumadin therapy Anticoagulation Tele phone Fu (INR Lab Result) Start: 09-05-2021 End: 09-05-2021 Patient encounter procedure Stas Mora MD Work Phone: [facility] Comment on above: Encounter for Medica re annual wellness exam (Primary Dx); Paroxysmal atrial fibrillation (HCC); Essential hypertension, benign Start: 08-30-2021 Telephone encounter Jenna Geovany barnes APRN.HEDGE FUND ACCOUNTANT Work Phone: [facility] Comment on above: Orders (INR ) Anticoagulation Tele phone Fu (INR Lab Result) Start: 08-16-2021 Orders Only Stas newman MD Work Phone: [facility] Comment on above: Anticoagulation Start: 08-02-2021 Telephone encounter Senia Phillips [facility] Telemanagement Comment on above: Anticoagulation Tele phone Fu (INR Lab Result) Start: 07-16-2021 Telephone encounter Stas miranda MD Work Phone: [facility] Comment on above: Results Start: 07-13-2021 Refill Elvis RASHID RN.HEDGE FUND ACCOUNTANT Work Phone: [facility] Comment on above: Refill Request Start: 07-08-2021 End: 07-08-2021 Patient encounter procedure Stas Mora MD Work Phone: [facility] Comment on above: Essential hypertensi on, benign (Primary Dx); Atherosclerosis 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, unspecified vessel or lesion type, unspecified whether bill moore's slough or transplanted heart; Paroxysmal atrial fibrillation (HCC); Primary osteoarthritis of both knees Start: 07-03-2021 Telephone encounter Stas miranda MD Work Phone: [facility] Comment on above: Anticoagulation Tele phone Fu (Lab INR result) Start: 06-12-2021 Telephone encounter Stas miranda MD Work Phone: [facility] Comment on above: Anticoagulation (Lab INR result) Start: 03-12-2020 End: 03-12-2020 Subsequent hospital visit by physician Jaymie [facility] [place] Work Phone: Radiology Comment on above: Acute right-sided lo w back pain, unspecified whether sciatica present [M54.5] Start: 02-02-2018 Ambulatory DARRELL OLIVEIRA Facility :[facility] Start: 06-02-2017 End: 06-02-2017 Ambulatory DARRELL OLIVEIRA [facility] Procedures Date Procedure Procedure Detail Performing [...] Adult depression scr eening assessment Coretta Jalloh [facility] Start: 02-17-2023 Mri brain brain stem w/o contrast material Stas Mora MD Work Phone: Start: 02-10-2023 Plain chest X-ray Start: 02-10-2023 SARS-CoV-2 & FLU Ant igen (Rapid) Start: 05-21-2022 Radex hip unilateral with pelvis 2-3 views Jenna Fitzpatrick DIRECTIONAL BORE OPERATOR.HEDGE FUND ACCOUNTANT Work Phone: Start: 05-19-2022 PROTHROMBIN TIME/PT [facility] [...] Detail Author Start: 02-27-2031 Urine microalbumin profile [facility] Start: 05-26-2027 [facility] Start: 06-02-2026 [facility] Scre[facility] Start: 08-15-2025 DIABETES SCREEN DIABETES SCREEN [facility] Start: 08-15-2025 Diabetes Screening [facility] Start: 05-25-2025 Hepatitis B surface antibody level LDL Cholesterol [facility] Start: 03-30-2025 End: 03-30-2025 Patient encounter procedure 03/30/2025 11:00 AM EST Office Visit Geriatrics [address] [place] [address] Luciana Cisneros MD [address] [place] [address] follow up 6 months Geriatrics Comment on above: follow up 6 months Start: 02-21-2025 DIABETES SCREEN DIABETES SCREEN [facility] Start: 12-06-2024 DIABETES SCREEN DIABETES SCREEN [facility] Start: 12-05-2024 End: 12-05-2024 Patient encounter procedure 12/05/2024 12:40 PM EDT Office Visit [facility] [place] [address] [place] [address] Stas Mora MD [address] [place] [address] reschedule from 12/01 [facility] [place] Comment on above: reschedule from 12/01 Start: 12-01-2024 End: 12-01-2024 Patient encounter procedure 12/01/2024 9:40 AM EDT Office Visit [facility] [place] [address] [place] [address] Stas Mora MD [address] [place] [address] 6 mo f/u [facility] [place] Comment on above: 6 mo f/u Start: 11-26-2024 End: 02-25-2025 CBC W Auto Differential panel - Blood COMPLETE BLOOD COUNT AND DIFFERENTIAL Lab Routine Essential hypertension, benign Expected: 11/26/2024 (Approximate), Expires: 02/25/2025 [facility] Comment on above: Expected: 11/26/2024 (Approximate), Expires: 02/25/2025 Start: 11-26-2024 End: 02-25-2025 Comprehensive metabolic 2000 panel - Serum or Plasma COMPREHENSIVE METABOLIC PANEL Lab Routine Essential hypertension, benign Hyperlipidemia, unspecified hyperlipidemia type Expected: 11/26/2024 (Approximate), Expires: 02/25/2025 [facility] Work Phone: Comment on above: Expected: 11/26/2024 (Approximate), Expires: 02/25/2025 Start: 11-26-2024 End: 02-25-2025 Lipid 1996 panel - Serum or Plasma LIPID PANEL BASIC Lab Routine Essential hypertension, benign Hyperlipidemia, unspecified hyperlipidemia type Expected: 11/26/2024 (Approximate), Expires: 02/25/2025 [facility] Comment on above: Expected: 11/26/2024 (Approximate), Expires: 02/25/2025 Start: 11-25-2024 RSV Vaccine (1 - 1-d ose 60+ series) RSV Vaccine (1 - 1-dose 60+ series) [facility] Comment on above: Postponed from 08/12 (Declined at this time) Start: 11-25-2024 RSV Vaccine (1 - 1-d ose 75+ series) RSV Vaccine (1 - 1-dose 75+ series) [facility] Comment on above: Postponed from 08/12 (Declined at this time) Start: 11-21-2024 Influenza vaccination Influenza Vacc ine (#1) [facility] Start: 09-06-2024 Patient discharge [facility] Start: 09-02-2024 Admission procedure [facility] Start: 09-01-2024 End: 09-02-2024 [facility] Start: 09-01-2024 Blood culture Blood Culture [facility] Start: 09-01-2024 Application of intermittent pneumatic compression device [facility] Start: 09-01-2024 Fall prevention [facility] Start: 09-01-2024 Oxygen therapy [facility] Start: 09-01-2024 Provision of activit y privileges [facility] Start: 09-01-2024 Assessment of risk o f venous thromboembolism [facility] Start: 09-01-2024 Insertion of cathete r into peripheral vein [facility] Start: 09-01-2024 Providing care accor ding to standard [facility] Start: 09-01-2024 Referral to occupati onal therapist [facility] Start: 09-01-2024 Referral to service [facility] Start: 09-01-2024 [facility] Start: 09-01-2024 Following clinical pathway protocol [facility] Start: 09-01-2024 Admission procedure [facility] Start: 09-01-2024 Hospital admission, emergency, from emergency room, medical nature [facility] Start: 08-31-2024 End: 08-31-2024 Patient encounter procedure 08/31/2024 11:00 AM EDT Office Visit Geriatrics [address] [place] [address] Luciana Cisneros MD [address] [place] [address] 3 month f/u Geriatrics Comment on above: 3 month f/u Start: 2024 Anxiety Screening Anxiety Screening [facility] Start: 2024 Depression Screening Depression Scre ening [facility] Start: 07-08-2024 DIABETES SCREEN DIABETES SCREEN [facility] Start: 06-02-2024 Hepatitis B surface antibody level LDL Cholesterol [facility] Start: 06-01-2024 End: 06-01-2024 Patient encounter procedure 06/01/2024 3:00 PM EDT Office Visit Geriatrics [address] [place] [address] Luciana Cisneros MD [address] [facility] [place] [address] Follow up visit for MRI Geriatrics Comment on above: Follow up visit for MRI Start: 06-01-2024 Covid-19 Vaccine ( season) Covid-19 Vaccine () [facility] Start: 05-30-2024 End: 05-30-2024 Patient encounter procedure 05/30/2024 11:20 AM EDT Office Visit Internal [facility] [place] [address] [place] [address] Luciana Cisneros MD [address] [facility] [place] [address] Follow up visit for MRI [facility] [place] Comment on above: Follow up visit for MRI Start: 05-26-2024 End: 05-26-2024 Patient encounter procedure 05/26/2024 9:20 AM EST Office Visit Family Medicine [place] [address] [place] [address] Stas Mora MD [address] [facility] [place] [address] 6 mo f/u Family [facility] [place] Comment on above: 6 mo f/u Start: 05-25-2024 End: 08-24-2024 CBC W Auto Differential panel - Blood COMPLETE BLOOD COUNT AND DIFFERENTIAL Lab Routine Abnormal CBC Expected: 05/25/2024 (Approximate), Expires: 08/24/2024 [facility] Comment on above: Expected: 05/25/2024 (Approximate), Expires: 08/24/2024 Start: 05-25-2024 End: 08-24-2024 Comprehensive metabolic 2000 panel - Serum or Plasma COMPREHENSIVE METABOLIC PANEL Lab Routine Essential hypertension, benign Hyperlipidemia, unspecified hyperlipidemia type Expected: 05/25/2024 (Approximate), Expires: 08/24/2024 [facility] Work Phone: Comment on above: Expected: 05/25/2024 (Approximate), Expires: 08/24/2024 Start: 05-25-2024 End: 08-24-2024 Lipid 1996 panel - Serum or Plasma LIPID PANEL BASIC Lab Routine Essential hypertension, benign Hyperlipidemia, unspecified hyperlipidemia type Expected: 05/25/2024 (Approximate), Expires: 08/24/2024 [facility] Comment on above: Expected: 05/25/2024 (Approximate), Expires: 08/24/2024 Start: 05-25-2024 End: 05-25-2024 ambulatory 05/25/2024 8:30 AM EST Results Only [facility] [address] [place] [address] [facility] Start: 05-23-2024 End: 05-23-2024 Patient encounter procedure 05/23/2024 2:30 PM EST Appointment [facility] [address] [address] Cognitive impairment, mild, 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] [facility] Comment on above: Cognitive impairment , mild, 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] Start: 04-29-2024 End: 04-29-2024 Patient encounter procedure 04/29/2024 3:40 PM EST Office Visit Family [facility] [address] [place] [address] Stas Mora MD [address] [place] [address] memory issues,See TE [facility] [place] Comment on above: memory issues,See TE Start: 04-27-2024 End: 04-27-2024 Patient encounter procedure 04/27/2024 9:30 AM EST Office Visit Geriatrics [address] [place] [address] Luciana Cisneros MD [address] [place] [address] Dementia, unspecified dementia severity, unspecified dementia type, unspecified whether behavioral, psychotic, or mood disturbance or anxiety (HCC) [F03.90] Geriatrics Comment on above: Dementia, unspecifie d dementia severity, unspecified dementia type, unspecified whether behavioral, psychotic, or mood disturbance or anxiety (HCC) [F03.90] Start: 03-23-2024 Advance Directive Discussion Advance Directive Discussion [facility] Start: 03-23-2024 Medicare Advantage A nnual Wellness Visit Medicare Advantage Annual Wellness Visit [facility] Start: 03-13-2024 DIABETES SCREEN DIABETES SCREEN [facility] Start: 11-26-2023 End: 11-26-2023 Patient encounter procedure [facility] [place] Comment on above: 6 month follow up 6 month follow up, jessica bashir, on aricept x 3 months Start: 11-22-2023 Covid-19 Vaccine () Covid-19 Vaccine () [facility] Start: 11-22-2023 Influenza vaccination Influenza Vacc ine (#1) [facility] Start: 09-15-2023 End: 09-15-2023 Patient encounter procedure 09/15/2023 8:40 AM EDT Office Visit [facility] [place] [address] [place], [place] [id number] Stas Mora MD [address] [place] [address] leg swelling- both legs--See triage 09/14/2023. Family [facility] Comment on above: leg swelling- both l egs--See triage 09/14/2023. Start: 08-16-2023 Hepatitis B surface antibody level LDL CHOLESTEROL [facility] Start: 08-14-2023 End: 08-14-2023 Patient encounter procedure 08/14/2023 10:00 AM EDT Office Visit Family [facility] [address] [place] [address] Stas Mora MD [address] [place], [place] [id number] Memory Issues [facility] Comment on above: Memory Issues Start: 06-04-2023 End: 09-03-2023 Ferritin [Mass/volume] in Serum or Plasma [facility] Work Phone: Comment on above: Expected: 06/04/2023 , Expires: 09/03/2023 Start: 06-04-2023 End: 09-03-2023 Iron and Iron binding capacity panel - Serum or Plasma [facility] Work Phone: Comment on above: Expected: 06/04/2023 , Expires: 09/03/2023 Start: 06-01-2023 End: 08-31-2023 CBC panel - Blood by Automated count CBC Lab Routine Paroxysmal atrial fibrillation (HCC) Essential hypertension, benign Expected: 06/01/2023 (Approximate), Expires: 08/31/2023 [facility] Work Phone: Comment on above: Expected: 06/01/2023 (Approximate), Expires: 08/31/2023 Start: 06-01-2023 End: 08-31-2023 Comprehensive metabolic 2000 panel - Serum or Plasma COMP METABOLIC PANEL Lab Routine Paroxysmal atrial fibrillation (HCC) Essential hypertension, benign Hyperlipidemia, unspecified hyperlipidemia type Expected: 06/01/2023 (Approximate), Expires: 08/31/2023 [facility] Work Phone: Comment on above: Expected: 06/01/2023 (Approximate), Expires: 08/31/2023 Start: 06-01-2023 End: 08-31-2023 Lipid 1996 panel - Serum or Plasma LIPID PANEL BASIC Lab Routine Paroxysmal atrial fibrillation (HCC) Essential hypertension, benign Hyperlipidemia, unspecified hyperlipidemia type Expected: 06/01/2023 (Approximate), Expires: 08/31/2023 [facility] Work Phone: Comment on above: Expected: 06/01/2023 (Approximate), Expires: 08/31/2023 Start: 05-13-2023 Covid-19 Vaccine () Covid-19 Vaccine () [facility] Start: 03-23-2023 Advance Directive Discussion Advance Directive Discussion [facility] Start: 03-23-2023 Behavioral Health Screening Behavioral Health Screening [facility] Start: 03-23-2023 Depression Assessment Depression Ass essment [facility] Start: 02-21-2023 Hepatitis B surface antibody level LDL CHOLESTEROL [facility] Start: 02-10-2023 [facility] Start: 12-06-2022 Hepatitis B surface antibody level LDL CHOLESTEROL [facility] Start: 11-21-2022 Covid-19 Vaccine ( season) Covid-19 Vaccine () [facility] Start: 11-21-2022 Influenza vaccination [facility] Start: 09-05-2022 PNEUMOCOCCAL: 65+ (2 - PCV) PNEUMOCOCCAL: 65+ (2 - PCV) [facility] Comment on above: Postponed from 02/21 (Declined at this time) Start: 07-08-2022 Hepatitis B surface antibody level LDL CHOLESTEROL [facility] Start: 04-26-2022 COVID-19 VACCINE (6 - Pfizer series) COVID-19 VACCINE (6 - Pfizer series) [facility] Start: 03-23-2022 ADVANCE DIRECTIVE DISCUSSION ADVANCE DIRECTIVE DISCUSSION [facility] Start: 03-23-2022 DEPRESSION ASSESSMENT DEPRESSION ASS ESSMENT [facility] Start: 03-13-2022 Hepatitis B surface antibody level LDL CHOLESTEROL [facility] Start: 03-10-2022 End: 05-10-2022 CBC panel - Blood by Automated count CBC Lab Routine TIA (transient ischemic attack) Essential hypertension, benign Atherosclerosis 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, unspecified vessel or lesion type, unspecified whether bill moore's slough or transplanted heart Expected: 03/10/2022 (Approximate), Expires: 05/10/2022 [facility] Work Phone: Comment on above: Expected: 03/10/2022 (Approximate), Expires: 05/10/2022 Start: 03-10-2022 End: 05-10-2022 Comprehensive metabolic 2000 panel - Serum or Plasma COMP METABOLIC PANEL Lab Routine TIA (transient ischemic attack) Essential hypertension, benign Atherosclerosis 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, unspecified vessel or lesion type, unspecified whether bill moore's slough or transplanted heart Expected: 03/10/2022 (Approximate), Expires: 05/10/2022 [facility] Work Phone: Comment on above: Expected: 03/10/2022 (Approximate), Expires: 05/10/2022 Start: 03-10-2022 End: 05-10-2022 Lipid 1996 panel - Serum or Plasma LIPID PANEL BASIC Lab Routine TIA (transient ischemic attack) Essential hypertension, benign Atherosclerosis 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, unspecified vessel or lesion type, unspecified whether bill moore's slough or transplanted heart Expected: 03/10/2022 (Approximate), Expires: 05/10/2022 [facility] Work Phone: Comment on above: Expected: 03/10/2022 (Approximate), Expires: 05/10/2022 Start: 01-03-2022 End: 03-05-2022 Comprehensive metabolic 2000 panel - Serum or Plasma COMP METABOLIC PANEL Lab Routine Atherosclerosis 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, unspecified vessel or lesion type, unspecified whether [place] or transplanted heart Essential hypertension, benign Expected: 01/03/2022 (Approximate), Expires: 03/05/2022 [facility] Work Phone: Comment on above: Expected: 01/03/2022 (Approximate), Expires: 03/05/2022 Start: 01-03-2022 End: 03-05-2022 LIPID PANEL BASIC LIPID PANEL BASIC Lab Routine Atherosclerosis 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, unspecified vessel or lesion type, unspecified whether [place] or transplanted heart Essential hypertension, benign Expected: 01/03/2022 (Approximate), Expires: 03/05/2022 [facility] Work Phone: Comment on above: Expected: 01/03/2022 (Approximate), Expires: 03/05/2022 Start: 12-24-2021 Prothrombin time [facility] Work Phone: Start: 12-23-2021 Prothrombin time [facility] Work Phone: Start: 12-22-2021 Patient discharge [facility] Work Phone: Start: 12-21-2021 Assessment of risk o f venous thromboembolism [facility] Work Phone: Start: 12-21-2021 Cardiac monitoring [facility] Work Phone: Start: 12-21-2021 Catheterization of vein [facility] Work Phone: Start: 12-21-2021 Continuous pulse oximetry [facility] Work Phone: Start: 12-21-2021 Elevation of head of bed [facility] Work Phone: Start: 12-21-2021 Exercises [facility] Work Phone: Start: 12-21-[address] anned interventions [facility] Work Phone: Start: 12-21-2021 Insertion of cathete r into peripheral vein [facility] Work Phone: Start: 12-21-2021 Measuring intake and output [facility] Work Phone: Start: 12-21-2021 Notification of physician [facility] Work Phone: Start: 12-21-2021 Oxygen therapy [facility] Work Phone: Start: 12-21-2021 Providing care accor ding to standard [facility] Work Phone: Start: 12-21-2021 Provision of activit y privileges [facility] Work Phone: Start: 12-21-2021 Referral to occupati onal therapist [facility] Work Phone: Start: 12-21-2021 Referral to service [facility] Work Phone: Start: 12-21-2021 Tobacco use cessatio n education [facility] Work Phone: Start: 12-21-2021 US scan of thyroid Thyroid [facility] Work Phone: Start: 12-21-2021 [facility] Work Phone: Start: 12-21-2021 End: 12-21-2021 Following clinical pathway protocol [facility] Work Phone: Start: 12-21-2021 Verification routine [facility] Work Phone: Start: 12-21-2021 Admission procedure [facility] Work Phone: Start: 12-21-2021 CT of head without contrast STROKE Brain/Head without Cont [facility] Work Phone: Start: 12-21-2021 CT Unspecified body region WO contrast [facility] Work Phone: Start: 12-21-2021 Oxygen therapy [facility] Work Phone: Start: 12-21-2021 End: 12-22-2021 [facility] Work Phone: Start: 11-21-2021 Influenza vaccination INFLUENZA (#1) [facility] Start: 09-24-2021 COVID-19 VACCINE (5 - Booster for Pfizer series) COVID-19 VACCINE (5 - Booster for Pfizer series) [facility] Start: 08-30-2021 End: 10-30-2021 PT panel - Platelet poor plasma by Coagulation assay [facility] Work Phone: Comment on above: Expected: 08/30/2021 , Expires: 10/30/2021 Start: 07-08-2021 End: 09-07-2021 Comprehensive metabolic 2000 panel - Serum or Plasma [facility] Work Phone: Comment on above: Expected: 07/08/2021 (Approximate), Expires: 09/07/2021 Start: 07-08-2021 End: 09-07-2021 LIPID PANEL BASIC [facility] Work Phone: Comment on above: Expected: 07/08/2021 (Approximate), Expires: 09/07/2021 Start: 04-27-2021 COVID-19 VACCINE (4 - Booster for Pfizer series) COVID-19 VACCINE (4 - Booster for Pfizer series) [facility] Start: 03-23-2021 ADVANCE DIRECTIVE DISCUSSION ADVANCE DIRECTIVE DISCUSSION [facility] Start: 03-23-2021 DEPRESSION ASSESSMENT DEPRESSION ASS ESSMENT [facility] Start: 02-21-2009 Pneumococcal Vaccine : 65+ (2 - PCV) Pneumococcal Vaccine: 65+ (2 - PCV) [facility] Start: 02-21-2009 PNEUMOCOCCAL: 65+ (2 - PCV) PNEUMOCOCCAL: 65+ (2 - PCV) [facility] Start: 02-23-2008 Urine microalbumin profile DTAP,TDAP,TD (1 - Tdap) [facility] Start: 1995 RSV Vaccine (1 - 1-d ose 60+ series) RSV Vaccine (1 - 1-dose 60+ series) [facility] Start: 08-12-1985 SHINGRIX VACCINE (1 of 2) VALDES GRIX VACCINE (1 of 2) [facility] Hemoglobin.gastroint estin al.lower [Presence] in Stool by Immunoassay FECAL OCCULT BLOOD TEST Lab Routine Abnormal CBC 06/04/2023 2:13 PM EDT [facility] Work Phone: End: 05-27-2025 MR Brain WO contrast MRI BRAIN W QUANT WO IVCON Radiology Routine Cognitive impairment, mild, so stated 1 Occurrences starting 04/27/2024 until 05/27/2025 [facility] Work Phone: Comment on above: 1 Occurrences starti ng 04/27/2024 until 05/27/2025 End: 05-27-2025 MR Unspecified body region 3D post processing MRI 3D BRAIN QUANT Radiology Routine Cognitive impairment, mild, so stated 1 Occurrences starting 04/27/2024 until 05/27/2025 [facility] Comment on above: 1 Occurrences starti ng 04/27/2024 until 05/27/2025 End: 03-17-2024 Mri brain brain stem w/o contrast material MRI BRAIN WO IVCON Radiology STAT Cerebral infarction, unspecified mechanism (HCC) 1 Occurrences starting 02/16/2023 until 03/17/2024 [facility] Work Phone: Comment on above: 1 Occurrences starti ng 02/16/2023 until 03/17/2024 Mri brain brain stem w/o contrast material MRI BRAIN WO IVCON Radiology STAT Cerebral infarction, unspecified mechanism (HCC) 02/17/2023 8:13 AM EST [facility] Work Phone: Patient Education ED Weakness (U ncertain Cause) [facility] Work Phone: Patient referral [facility] Work Phone: End: 09-13-2022 PT panel - Platelet poor plasma by Coagulation assay PROTHROMBIN TIME/PT 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 Encounter for monitoring Coumadin therapy Once per week for 99 Occurrences starting 09/13/2021 until 09/13/2022 [facility] Work Phone: Comment on above: Once per week for 99 Occurrences starting 09/13/2021 until 09/13/2022 PT panel - Platelet poor plasma by Coagulation assay PROTHROMBIN TIME/PT 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 Encounter for monitoring Coumadin therapy 09/13/2021 8:42 AM EDT [facility] Work Phone: End: 01-16-2024 PT panel - Platelet poor plasma by Coagulation assay PROTHROMBIN TIME/PT 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 Paroxysmal atrial fibrillation (HCC) Once per week for 99 Occurrences starting 01/16/2023 until 01/16/2024 [facility] Work Phone: Comment on above: Once per week for 99 Occurrences starting 01/16/2023 until 01/16/2024 End: 12-23-2024 PT panel - Platelet poor plasma by Coagulation assay PROTHROMBIN TIME Lab STAT 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 24 Occurrences starting 12/24/2023 until 12/23/2024 [facility] Work Phone: Comment on above: 24 Occurrences start ing 12/24/2023 until 12/23/2024 End: 01-25-2023 Us soft tissue head & neck real time imge docm US THYROID/PARATHYROID Radiology Routine Thyroid nodule 1 Occurrences starting 12/26/2021 until 01/25/2023 [facility] Work Phone: Comment on above: 1 Occurrences starti ng 12/26/2021 until 01/25/2023 [facility] Immunizations Immunization Date Immunization Notes Care Provider Rich vargas 12-03-2023 influenza virus vacc ine, unspecified formulation Stas Mora MD Work Phone: [facility] 01-10-2023 influenza (HD-IIV4) vaccine, age 65+ yr, high dose, quadrivalent, PF (FLUZONE HIGH-DOSE) Coretta Jalloh [place] 10-21-2023 influenza virus vacc ine, unspecified formulation Coretta Jalloh [place] 12-26-2021 influenza, high-dose , quadrivalent vaccine (FLUZONE HIGH DOSE QUADRIVALENT) Stas Mora MD Work Phone: [facility] 12-26-2021 influenza virus vacc ine, unspecified formulation Senia Phillips [place] 02-27-2021 tetanus toxoid, redu natividad diphtheria toxoid, and acellular pertussis vaccine, adsorbed Stas Mora MD Work Phone: [facility] 02-27-2021 zoster vaccine recombinant Stas Mora MD Work Phone: [facility] 12-25-2020 Covid (Pfizer) Dr. Stas gonzales Work Phone: [facility] 12-10-2020 influenza (HD-IIV4) vaccine, age 65+ yr, high dose, quadrivalent, PF (FLUZONE HIGH-DOSE) [facility] [place] 12-10-2020 influenza, high dose seasonal, preservative-free Stas Mora MD Work Phone: [facility] 09-17-2020 zoster vaccine recombinant Stas Mora MD Work Phone: [facility] 05-09-2020 Covid (Pfizer) Dr. Stas gonzales Work Phone: [facility] 04-18-2020 Covid (Pfizer) Dr. Stas gonzales Work Phone: [facility] 12-24-2016 influenza, high dose seasonal, preservative-free Stas Mora MD Work Phone: [facility] 12-22-2015 Influenza virus vaccine [facility] 12-22-2015 influenza, seasonal, injectable, preservative free Stas Mora MD Work Phone: [facility] Work Phone: 01-30-2014 influenza, high dose seasonal, preservative-free Stas Mora MD Work Phone: [facility] Work Phone: 01-24-2013 influenza virus vacc ine, unspecified formulation Stas Mora MD Work Phone: [facility] 02-22-2008 pneumococcal polysaccharide vaccine, 23 valent Stas Mora MD Work Phone: [facility] Work Phone: 02-22-2008 tetanus and diphther ia toxoids, adsorbed, preservative free, for adult use (2 Lf of tetanus toxoid and 2 Lf of diphtheria toxoid) Stas Mora MD Work Phone: [facility] Work Phone: Payers Date Payer Category Payer Self-pay [id number] 2022 Unknown [id number] 2016 Medicare [employer] [place] [id number] 2016-Present [phone] [address] [place] [address] O [id number] 2016 Medicare [employer] [place] [id number] 2016-Present [phone] [address] [place] [address] [facility] [id number] 2016 Medicare ([place] Care[place] [id number] 2016 Medicare [id number] 1935 Unknown [id number]. 2.627 1935 Unknown [id number] 2.840.1.070862.3.579. 2.627 Unknown VA AUTH REQUIR ED SEE NOTE [id number] Unknown VA AUTH REQUIR ED SEE NOTE . [id number] Unknown [id number] 2.840.1.111908.3.579. 2.462 Unknown [id number] 2.840.1.475038.3.579. 2.462 Unknown [id number] 2.840.1.160035.3.579. 2.462 Unknown [id number] 2.840.1.114422.3.579. 2.462 Unknown [id number] 2.840.1.314073.3.579. 2.462 Unknown [id number] 2.840.1.816079.3.579. 2.462 Unknown [id number] 2.840.1.246069.3.579. 2.462 Unknown [id number] 2.840.1.843759.3.579. 2.462 Unknown [id number] 2.840.1.106089.3.579. 2.462 Unknown [id number] 2.840.1.220664.3.579. 2.462 Unknown [id number] 2.840.1.602685.3.579. 2.462 Unknown [id number] 2.840.1.313880.3.579. 2.462 Unknown [id number] 2.840.1.152254.3.579. 2.462 Unknown [id number] 2.16.840.1.988699.3.579. 2.462 Unknown [id number] 2.16.840.1.068630.3.579. 2.462 Unknown [id number] 2.16.840.1.441745.3.579. 2.462 Unknown [id number] 2.16.840.1.988610.3.579. 2.462 Unknown [id number] 2.16.840.1.476933.3.579. 2.462 Unknown [id number] 2.16.840.1.755180.3.579. 2.462 Unknown [id number] 2.16.840.1.147470.3.579. 2.462 Unknown [id number] 2.16.840.1.096142.3.579. 2.462 Unknown [id number] 2.16.840.1.124596.3.579. 2.462 Unknown [id number] 2.16.840.1.001528.3.579. 2.462 Unknown [id number] 2.16.840.1.141265.3.579. 2.462 Unknown [id number] 2.16.840.1.379174.3.579. 2.462 Unknown [id number] 2.16.840.1.851128.3.579. 2.462 Unknown [id number] 2.16.840.1.972833.3.579. 2.462 Unknown [id number] 2.16.840.1.565246.3.579. 2.462 Unknown [id number] 2.16.840.1.347483.3.579. 2.462 Social History Date Type Detail Facility Start: 05-04-2017 End: 09-01-2024 Tobacco smoking status NHIS Ex-smoker [facility] Start: 02-15-2021 End: 07-28-2024 Alcohol intake Current non-drinker of alcohol (finding) [facility] Start: 08-26-2020 End: 08-29-2021 History SDOH Alcohol Frequency 2 [facility] Start: 08-26-2020 End: 08-29-2021 History SDOH Alcohol Std Drinks 1 [facility] Start: 08-26-2020 End: 08-29-2021 History SDOH Social Connections Zoroastrianism 3 [facility] Start: 08-26-2020 End: 08-29-2021 History SDOH Social Connections Living 5 [facility] Start: 08-26-2020 History SDOH Physical Activity MPS 6 [facility] Start: 08-26-2020 Education 12 [facility] Start: 1935 Sex Assigned At Male [facility] Start: 02-11-2020 End: 12-26-2021 Exposure to SARS-CoV-2 (event) Not sure [facility] History of tobacco use Current smoker [facility] Start: 05-04-2017 End: 12-26-2021 Tobacco use and exposure Smokeless tobacco non-user [facility] Start: 12-21-2021 End: 02-10-2023 Tobacco smoking status NHIS Unknown if ever smoked [facility] Start: 12-22-2021 Non-smoker [facility] Start: 12-26-2021 Tobacco Comment 30 yaers ago [facility] Start: 02-28-2020 End: 08-29-2021 History of Social function [facility] Start: 02-28-2020 End: 08-29-2021 Social connection and isolation panel [facility] Do you belong to any clubs or organizations such as pentecostalism groups, unions, fraternal or athletic groups, or school groups? No [facility] Are you now , , , , never or living with a partner? [facility] How often to you hav e a drink containing alcohol? Monthly or less [facility] How many standard dr inks containing alcohol do you have on a typical day? 1 or 2 [facility] How often do you hav e 6 or more drinks on 1 occasion? Never [facility] How hard is it for y ou to pay for the very basics like food, housing, medical care, and heating Not hard at all [facility] Do you feel stress - tense, restless, nervous, or anxious, or unable to sleep at night because your mind is troubled all the time - these days [OSQ] Not at all [facility] (I/We) worried velvet er (my/our) food would run out before (I/we) got money to buy more. Never true [facility] Start: 08-26-2020 Gender identity Identifies as male gender (finding) [facility] Start: 08-26-2020 Sexual orientation Heterosexual (finding) [facility] Sex Assigned At Sex [facility] Are you now , , , , never or living with a partner? [facility] How often to you hav e a drink containing alcohol? 2-4 times a month [facility] Goals Date Patient Goal Desired Activity /State Functional Status Date Assessment Result Facility 09-06-2024 Functional status Ambulates [facility] Work Phone: 07-26-2024 Total score [AUDIT-C] 1 07/27/19 6:26 PM EDT User, [facility] 07-26-2024 Within the last year , have you been humiliated or emotionally abused in other ways by your partner or ex-partner? No 07/26/2024 6:26 PM EDT User, [facility] 07-26-2024 Within the last year , have you been afraid of your partner or ex-partner? No 07/26/2024 6:26 PM EDT User, [facility] 07-26-2024 Within the last year , have you been raped or forced to have any kind of sexual activity by your partner or ex-partner? No 07/26/2024 6:26 PM EDT User, [facility] 07-26-2024 Within the last year , have you been kicked, hit, slapped, or otherwise physically hurt by your partner or ex-partner? No 07/26/2024 6:26 PM EDT User, [facility] 07-26-2024 How often to you hav e a drink containing alcohol? Monthly or less 07/26/2024 6:26 PM EDT User, Mychart Monthly or less [facility] 07-26-[address] inks containing alcohol do you have on a typical day? 1 or 2 07/26/2024 6:26 PM EDT User, Normat 1 or 2 [facility] 07-26-2024 How often do you hav e 6 or more drinks on 1 occasion? Never 07/26/2024 6:26 PM EDT User, [facility] Never [facility] 11-17-2022 Functional Status Up ad tara [facility] 11-17-2022 Functional Status Identified as high risk, Fall ID band on, Room located near nursing station [facility] 12-22-2021 Functional status Ambulates;Chair [facility] Work Phone: 07-02-2016 Are you deaf, or do you have serious difficulty hearing No 07/02/2016 2:52 PM EDT Anita Zhang, DO No [facility] Work Phone: 07-02-2016 Are you blind, or do you have serious difficulty seeing, even when wearing glasses No 07/02/2016 2:52 PM EDT Anita Zhang, DO No [facility] 07-02-2016 Do you have serious difficulty walking or climbing stairs No 07/02/2016 2:52 PM EDT Anita Zhang, DO No [facility] 07-02-2016 Do you have difficul ty dressing or bathing No 07/02/2016 2:52 PM EDT Anita Zhang, DO No [facility] 07-02-2016 Because of a physica l, mental, or emotional condition, do you have difficulty doing errands alone such as visiting a physician's office or shopping No 07/02/2016 2:52 PM EDT Antia Zhang, DO No [facility] Mental Status Date Assessment Result Facility 09-06-2024 Cognitive function Voice/Name [facility] Work Phone: 09-05-2024 Cognitive function Appropriate;Cooperativ e [facility] Work Phone: 02-10-2023 Cognitive function Level Of Cons ciousness Awake;Alert;Appropriate;Fol lows Commands [facility] Work Phone: 11-17-2022 Mental Status Orientation Oriented x 4 [facility] 11-17-2022 Mental Status [facility] Tracey Graham 12-22-2021 Cognitive function Voice/Name [facility] Work Phone: 12-21-2021 Cognitive function Voice/Name [facility] Work Phone: 07-02-2016 Because of a physica l, mental, or emotional condition, do you have serious difficulty concentrating, remembering, or making decisions No 07/02/2016 2:52 PM EDT Anita Zhang, DO No [facility] Clinical Notes 03-12-2020 to 09-21-2024 Telephone Encounter - Petty Vargas - 09/21/2024 9:21 AM EDTTelephone Encounter - Petty Vargas - 09/21/2024 9:21 AM EDT Note Date & Type Note Facility 09-21-2024 Telephone encounter Note Form atting of this note might be different from the original. [facility] healthy living for rehabilitation. Maria Guadalupe states that he has been in there for two weeks. Please advise [facility] 09-21-2024 Miscellaneous Notes Formattin g of this note might be different from the original. [facility] healthy living for rehabilitation. Maria Guadalupe states that he has been in there for two weeks. Please advise documented in this encounter [facility] 09-06-2024 Consult note [facility] 09-06-2024 Consult note Note Date/Time September 06, 2024 4:37pm [facility] Medical Records Department [address] [place] [address] Counseling Note - Pharmacy 09/06/24 1143 MR#: [id number] Acct: [id number] Name: ROBY FLORES Rep #:[id number] : 1935 89 From: Isabelle Summers PCP: Dr. Stas Mora MD Status:AD M IN Location: [address] [place] Med Reconciliation Pharmacy Service has performed discharge [...] Signature (if applicable): Date CC: ~ Signed [facility] Work Phone: 1(182) 302-569906-17-2025 Discharge summary Author Navid Dominguez [facility] Note Date/Time September 06, 2024 11:[address] [place] [address] Health System Medical Records Department [address] [place] [address] Discharge Summary 09/06/24 1109 MR#: [id number] Acct: [id number] Name: ROBY FLORES Rep #:[id number] : 1935 89 From: Navid Trejo PCP: Dr. Stas Mora MD Status:AD M IN Location: [facility] [id number] Providers Date of Admission: 09/02/24 Date of [...] explained to the patient and his [facility] 09/06: INR 2.4. Hold warfarin today and [...] (Auto) 66.8, Lymph % (Auto) 16.4 L, [place] % (Auto) 9.1, Eos % (Auto) 6.3 [...] in before D/C Order can be placed): [facility] Facility Charges/Coding Visit Charges Inpatient E&M: 54593 Disch Hosp >30min 09/06/24 1114 <Electronically signed by Navid Dominguez MD> Cosigner Signature (if applicable): CC: Dr. Stas Mora MD; Dr. Navid Dominguez MD~ Signed [facility] Work Phone: 1(170) 348-927706-17-2025 Discharge summary Author Navid Dominguez [facility] Note Date/Time September 06, 2024 11:0 9am [facility] Medical Records Department [address] [place] [address] Transfer to [facility] MR#: [id number] Acct: [id number] Name: ROBY FLORES Rep #:[id number] : 1935 89 From: Navid Trejo PCP: Dr. Stas Mora MD Status:AD M IN Certification of patient admission REQUIRED AT TIME OF ADMISSION. I CERTIFY THAT POST-HOSPITAL ECF SERVICES ARE REQUIRED TO BE GIVEN ON AN IN-PATIENT BASIS BECAUSE OF THE ABOVE NAMED PATIENT'S NEED FOR RESIDENTIAL CARE ON A CONTINUING BASIS FOR THE CONDITION(S) FOR WHICH HE/SHE WAS RECEIVING IN-PATIENT HOSPITAL SERVICES PRIOR TO HIS/HER TRANSFER TO THE [facility]. 09/06/24 1109<Electronically signed by Navid Dominguez MD> [...] explained to the [facility] and [facility] # Fever * Patient developed a [...] liberalized regular diet with consistency/texture as per [employer]. Will continue 120mL ensure plus HP 4 [...] in before D/C Order can be placed): [facility]pc Facility 09/06/24 1109 <Electronically signed by Navid Dominguez MD> Cosigner Signature (if applicable): CC: Dr. Stas Mora MD; Dr. Kathy Wells MD ~ [facility] Work Phone: 1(945) 863-360906-17-2025 Discharge summary [facility] Medical Records Department [address] [place] [address] Discharge Summary 09/06/24 1109 MR#: [id number] Acct: [id number] Name: ROBY FLORES Rep #:[id number] : 1935 89 From: Navid Trejo PCP: Dr. Stas Mora MD Status:AD M IN Location: [facility] [id number] Providers Date of Admission: 09/02/24 Date of [...] explained to the patient and his [facility] 09/06: INR 2.4. Hold warfarin today [...] (Auto) 66.8, Lymph % (Auto) 16.4 L, [place] % (Auto) 9.1, Eos % (Auto) 6.3 [...] in before D/C Order can be placed): Fpc Facility Charges/Coding Visit Charges Inpatient E&M: 39262 Disch Hosp >30min 09/06/24 1114 Cosigner Signature (if applicable): CC: Dr. Stas Mora MD; Dr. Nvaid Dominguez MD~ Signed [facility]06-17-2025 Discharge summary [facility] Medical Records Department [address] [place] [address] Transfer to [facility] MR#: [id number] Acct: [id number] Name: ROBY FLORES Rep #:[id number] : 1935 89 From: Navid Trejo PCP: Dr. Stas Mora MD Status:AD M IN Certification of patient admission REQUIRED AT TIME OF ADMISSION. I CERTIFY THAT POST-HOSPITAL ECF SERVICES ARE REQUIRED TO BE GIVEN ON AN IN-PATIENT BASIS BECAUSE OF THE ABOVE NAMED PATIENT'S NEED FOR RESIDENTIAL CARE ON A CONTINUING BASIS FOR THE CONDITION(S) FOR WHICH HE/SHE WAS RECEIVING IN-PATIENT HOSPITAL SERVICES PRIOR TO HIS/HER TRANSFER TO THE [facility]. 09/06/24 1109 Diet Diet Order/Speech Therapy: [...] explained to the [facility] # Fever * Patient developed a [...] liberalized regular diet with consistency/texture as per [employer]. Will continue 120mL ensure plus HP 4 [...] in before D/C Order can be placed): [facility] 09/06/24 1109 Cosigner Signature (if applicable): CC: Dr. Stas Mora MD; Dr. Kathy Wells MD ~ [facility]06-17-2025 [facility] Medical Records Department [address] [place] [address] Discharge Summary 09/06/24 1109 MR#: [id number] Acct: [id number] Name: ROBY FLORES Rep #: [id number] : 1935 89 From: Navid Dominguez MD PCP: Dr. Stas Mora MD Status:ADM IN Location: [place] [address]-1 Providers Date of Admission: 09/02/24 Date of [...] / Lab / Microbiol (more content not included)...[facility] 09-05-2024 Progress note Author Navid Dominguez [facility] Note Date/Time September 05, 2024 4:15 pm [facility] Medical Records Department [address] [place] [address] Progress Note - Hospitalist 09/05/24 1608 MR#: [id number] Acct: [id number] Name: ROBY FLORES Rep #:[id number] : 1935 89 From: Navid Trejo PCP: Dr. Stas Mora MD Status:AD M IN Location: [place]3 AD815-4 Reason for Visit Reason for Visit: Diagnoses [...] Clarity Clear, Urine pH 7.0, Ur Specific Macy 1.005, Urine Protein 15 H, Urine Glucose [...] 77.2 H, Lymph % (Auto) 9.8 L, [place] % (Auto) 7.9, Eos % (Auto) 4.0, [...] on board. Charges/Coding Visit Charges Inpatient E&M: 29143 Subs Hosp L2 09/05/24 0028 <Electronically signed by Navid Dominguez MD> Cosigner Signature (if applicable): CC: ~ Signed [facility] Work Phone: 1(375) 422-574906-16-2025 Progress note [facility] Medical Records Department [address] [place] [address] Progress Note - Hospitalist 09/05/24 1608 MR#: [id number] Acct: [id number] Name: ROBY FLORES Rep #:[id number] : 1935 89 From: Navid Trejo PCP: Dr. Stas Mora MD Status:AD M IN Location: [place] IU458-5 Reason for Visit Reason for Visit: Diagnoses [...] Clarity Clear, Urine pH 7.0, Ur Specific Macy 1.005, Urine Protein 15 H, Urine Glucose [...] 77.2 H, Lymph % (Auto) 9.8 L, [place] % (Auto) 7.9, Eos % (Auto) 4.0, [...] explained to the patient and [facility] # Fever * Patient developed a [...] on board. Charges/Coding Visit Charges Inpatient E&M: 13573 Subs Hosp L2 09/05/24 1615 Cosigner Signature (if applicable): CC: ~ Signed [facility]06-15-2025 Progress note Author Kathy Wells [facility] Note Date/Time September 04, 2024 3:37 pm [facility] Medical Records Department [address] [place] [address] Progress Note 09/04/24 1412 MR#: [id number] Acct: [id number] Name: ROBY FLORES Rep #:[id number] : 1935 89 From: Kathy Wells MD PCP: Dr. Stas Mora MD Status:AD M IN Location: [place] [address]-1 Subjective Subjective Patient seen and examined. He [...] 78.0 H, Lymph % (Auto) 7.8 L, [place] % (Auto) 7.7, Eos % (Auto) 5.3 [...] on board. Charges/Coding Visit Charges Inpatient E&M: 94901 Subs Hosp L2 09/04/24 1537 <Electronically signed by Kathy Wells MD> Kathy Wells MD Cosigner Signature (if applicable): CC: ~ Signed [facility] Work Phone: 1(210) 373-661106-15-2025 Progress note [facility] Medical Records Department [address] [place] [address] Progress Note 09/04/24 1412 MR#: [id number] Acct: [id number] Name: ROBY FLORES Rep #:[id number] : 1935 89 From: Kathy Wells MD PCP: Dr. Stas Mora MD Status:AD M IN Location: [place] [address] Subjective Subjective Patient seen and examined. He [...] 78.0 H, Lymph % (Auto) 7.8 L, [place] % (Auto) 7.7, Eos % (Auto) 5.3 [...] on board. Charges/Coding Visit Charges Inpatient E&M: 83681 Subs Hosp L2 09/04/24 1537 Kathy Wells MD Cosigner Signature (if applicable): CC: ~ Signed [facility]06-14-2025 Progress note Author Kathy [facility] Note Date/Time September 03, 2024 6:29 pm [facility] Medical Records Department [address] [place] [address] Progress Note 09/03/24 1135 MR#: [id number] Acct: [id number] Name: ROBY FLORES Rep #:[id number] : 1935 89 From: Kathy Wells MD PCP: Dr. Stas Mora MD Status:AD M IN Location: [place] [address] Subjective Subjective Patient seen and examined. He [...] 83.4 H, Lymph % (Auto) 6.7 L, [place] % (Auto) 6.0, Eos % (Auto) 2.8, [...] on board. Charges/Coding Visit Charges Inpatient E&M: 13890 Subs Hosp L2 09/03/24 9673 <Electronically signed by Kathy Wells MD> Kathy Wells MD Cosigner Signature (if applicable): CC: ~ Signed [facility] Work Phone: 1(227) 272-228206-14-2025 Progress note [facility] Medical Records Department [address] [place] [address] Progress Note 09/03/24 1135 MR#: [id number] Acct: [id number] Name: ROBY FLORES Rep #:[id number] : 1935 89 From: Kathy Wells MD PCP: Dr. Stas Mora MD Status:AD M IN Location: [place] YX136-7 Subjective Subjective Patient seen and examined. He [...] 83.4 H, Lymph % (Auto) 6.7 L, [place] % (Auto) 6.0, Eos % (Auto) 2.8, [...] on board. Charges/Coding Visit Charges Inpatient E&M: 78667 Subs Hosp L2 09/03/24 4107 Kathy Wells MD Cosigner Signature (if applicable): CC: ~ Signed [facility]06-14-2025 Consult note Author Spike De La Cruz [facility] Note Date/Time September 03, 2024 3:49 pm [facility] Medical Records Department [address] [place] [address] Pharmacokinetic/Renal -Consult 09/03/24 1548 MR#: [id number] Acct: [id number] Name: ROBY FLORES Rep #:[id number] : 1935 89 From: Spike Maynard [facility] PCP: Dr. Stas Mora MD Status:AD M IN Y Location: [place] [address] Consult Antibiotic Management Pharmacy has been consulted [...] 09/03/24 1549 <Electronically signed by Spike Angelo [facility]> Date _ Spike De La Cruz [facility] Cosigner Signature (if applicable): Date CC: ~ Signed [facility] Work Phone: [phone]) 788-360006-14-2025 Consult note [facility] Medical Records Department [address] [place] [address] Pharmacokinetic/Renal -Consult 09/03/24 1548 MR#: [id number] Acct: [id number] Name: ROBY FLORES Rep #:[id number] : 1935 89 From: Spike Maynard [facility] PCP: Dr. Stas Mora MD Status:AD M IN Location: [place] [address] Consult Antibiotic Management Pharmacy has been consulted [...] Trough: Vancomycin (09/04/24 at 2130) 09/03/24 1549 rowdying [facility]> Date _ Spike De La Cruz [facility] Cosigner Signature (if applicable): Date CC: ~ Signed [facility]06-13-2025 Progress note Author Kathy Wells [facility] Note Date/Time September 02, 2024 6:45 pm [facility] Medical Records Department [address] [place] [address] Progress Note 09/02/24 1404 MR#: [id number] Acct: [id number] Name: ROBY FLORES Rep #:[id number] : 1935 89 From: Kathy Wells MD PCP: Dr. Stas Mora MD Status:AD M IN Location: [place] [address] Subjective Subjective Patient seen and examined. He [...] (Auto) 87.9 H, Lymph %(Auto) 3.8 L, [place] % (Auto) 4.8, Eos % (Auto) 2.2, [...] intubation * Charges/Coding Visit Charges Inpatient E&M: 86785 Subs Hosp L2 09/02/24 184 <Electronically signed by Kathy Wells MD> Kathy Wells MD Cosigner Signature (if applicable): CC: ~ Signed [facility] Work Phone: [phone] Progress note [facility] Medical Records Department [address] [place] [address] Progress Note 09/02/24 1404 MR#: [id number] Acct: [id number] Name: ROBY FLORES Rep #:[id number] : 1935 89 From: Kathy Wells MD PCP: Dr. Stas Mora MD Status:AD M IN Location: [place] GC108-5 Subjective Subjective Patient seen and examined. He [...] (Auto) 87.9 H, Lymph %(Auto) 3.8 L, [place] % (Auto) 4.8, Eos % (Auto) 2.2, [...] intubation * Charges/Coding Visit Charges Inpatient E&M: 94357 Subs Hosp L2 09/02/24 7734 Kathy Wells MD Cosigner Signature (if applicable): CC: ~ Signed [facility]06-13-2025 Evaluation note* Diagnosis Onset Date Resolution Status Admit Date Adult failure to thrive acute [facility] 2024 12:49pm Chronic anticoagulation acute [facility] 2024 12:49pm Contusion of hip acute August 12:49pm Fall acute September 02 12:49pm History of atrial fibrillation acute September 02, 2024 12:49pm History of dementia acute September 02, 2024 12:49pm History of TIAs acute August 12:49pm Unable to ambulate acute August 212024 12:49pm [facility] Work Phone: 1(656) 282-309306-13-2025 Evaluation note* Diagnosis Onset Date Resolution Status Admit Date Chronic anticoagulation acute [facility] 2024 12:49pm Contusion of hip acute August 12:49pm Fall acute September 02 12:49pm History of atrial fibrillation acute September 02, 2024 12:49pm History of TIAs acute August 12:49pm Unable to ambulate acute August 212024 12:49pm Adult failure to thrive inactive [facility] 2024 12:49pm History of dementia inactive September 02, 2024 12:49pm [facility] Work Phone: [phone] Consult note Author Zachary Lubin [facility] Note Date/Time September 01, 2024 9:15 pm [facility] Medical Records Department [address] [place] [address] Pharmacokinetic/Renal -Consult 09/01/242113 MR#: [id number] Acct: [id number] Name: ROBY FLORES Rep #:[id number] : 1935 89 From: Zachary Serrano od PCP: Dr. Stas Mora MD Status:AD M GERMAN Y Location: [place] [address] Consult Antibiotic Management Pharmacy has been consulted [...] (if applicable): Date _ CC: ~ Signed [facility] Work Phone: 1(654) 838-176206-12-2025 Progress note Author Marta Black [facility] Note Date/Time September 01, 2024 7:55 pm [facility] Medical Records Department [address] [place] [address] Progress Note - Hospitalist 09/01/241952 MR#: [id number] Acct: [id number] Name: ROBY FLORES Rep #:[id number] : 1935 89 From: Marta Black DO PCP: Dr. Stas Mora MD Status:AD M GERMAN Location: [place] [address] Hospitalist Note Called regarding Mr. Flores having [...] Cosigner Signature (if applicable): CC: ~ Signed [facility] Work Phone: 1([phone]) 547-962406-12-2025 Consult note [facility] Medical Records Department [address] [place] [address] Pharmacokinetic/Renal -Consult 09/01/242113 MR#: [id number] Acct: [id number] Name: ROBY FLORES Rep #:[id number] : 1935 89 From: Zachary Serrano od PCP: Dr. Stas Mora MD Status:AD M GERMAN Y Location: [place] [address] Consult Antibiotic Management Pharmacy has been consulted [...] (if applicable): Date _ CC: ~ Signed [facility]06-12-2025 History and physical note Author Kathy [facility] Note Date/Time September 01, 2024 6:04 pm [facility] Medical Records Department [address] [place] [address] H&P Exam - Hospitalist 09/01/24 1018 MR#: [id number] Acct: [id number] Name: ROBY FLORES Rep #:[id number] : 1935 89 From: Kathy Wells MD PCP: Dr. Stas Mora MD Status:AD M GER[place] Location: [place]3 CP432-2 HPI - General General Date of Admission: [...] in the ED were BP of 180/89, VA of 87, RR of 18 and temp [...] debility and weakness due to mechanical fall. [facility] Medical History Chronic anticoagulation TIA (transient ischemic [...] 87.5 H, Lymph % (Auto) 4.8 L, [place] % (Auto) 5.7, Eos % (Auto) 1.2, [...] Clarity Clear, Urine pH 8.0, Ur Specific Macy 1.010, Urine Protein 15 H, Urine Glucose [...] No fracture or dislocation present. Reading Location: [facility] 09/01/24 09:05 IMPRESSION: Cerebral atrophy. Mucosal thickening of the ethmoid sinuses as well as opacification of the left maxillary sinus. Reading Location: [facility] Chest X-Ray 09/01/24 09:25 IMPRESSION: No acute abnormality is seen. Reading Location: [facility] Assessment & Plan Assessment/Plan (1) Adult [...] evidence of intracranial bleed. * Admit to [facility]. Hydrate gently with IV fluids. * PT [...] be DNR CCA no intubation. * Total phzm-jm-svzk time 16 minutes. Charges/Coding Visit Charges Inpatient E&M: 21280 Init Hosp L3 Procedures Hospitalists Procedures: 48704 Advncd Care Plan 30 Min 09/01/24 1804 <Electronically signed by Kathy Wells MD> Cosigner Signature (if applicable): CC: Dr. Stas Mora MD; Dr. Kathy Wells MD~ Signed [facility] Work Phone: 1(402) 841-360806-12-2025 Progress note [facility] Medical Records Department [address] [place] [address] Progress Note - Hospitalist 09/01/241952 MR#: [id number] Acct: [id number] Name: ROBY FLORES Rep #:[id number] : 1935 89 From: Marta Black DO PCP: Dr. Stas Mora MD Status:AD M [facility] Location: [place] [address] Hospitalist Note Called regarding Mr. Flores having [...] Cosigner Signature (if applicable): CC: ~ Signed [facility]06-12-2025 History and physical note [facility] Medical Records Department [address] [place] [address] H&P Exam - Hospitalist 09/01/24 1018 MR#: [id number] Acct: [id number] Name: ROBY FLORES Rep #:[id number] : 1935 89 From: Kathy Wells MD PCP: Dr. Stas Mora MD Status:AD M [facility] Location: [place] [address] HPI - General General Date of Admission: [...] in the ED were BP of 180/89, VA of 87, RR of 18 and temp [...] debility and weakness due to mechanical fall. [facility] Medical History Chronic anticoagulation TIA (transient ischemic [...] 87.5 H, Lymph % (Auto) 4.8 L, [place] % (Auto) 5.7, Eos % (Auto) 1.2, [...] Clarity Clear, Urine pH 8.0, Ur Specific Macy 1.010, Urine Protein 15 H, Urine Glucose [...] No fracture or dislocation present. Reading Location: [place] [address] 09/01/24 09:05 IMPRESSION: Cerebral atrophy. Mucosal thickening of the ethmoid sinuses as well as opacification of the left maxillary sinus. Reading Location: [place] [address] Chest X-Ray 09/01/24 09:25 IMPRESSION: No acute abnormality is seen. Reading Location: [place] [address] Assessment & Plan Assessment/Plan (1) Adult failure [...] be DNR CCA no intubation. * Total ncku-zi-kgav time 16 minutes. Charges/Coding Visit Charges Inpatient E&M: 36542 Init Hosp L3 Procedures Hospitalists Procedures: 52714 Advncd Care Plan 30 Min 09/01/24 4927 Cosigner Signature (if applicable): CC: Dr. Stas Mora MD; Dr. Kathy Wells MD~ Signed [facility]06-12-2025 Telephone encounter Note* Telephone Encounter - Haydee Oliveros LPN - 09/01/2024 2:49 PM EDT Mychart message sent [facility]06-12-2025 Miscellaneous Notes* Telephone Encounter - Haydee Oliveros LPN - 09/01/2024 2:49 PM EDT Mychart message sent * Telephone Encounter - Luciana Cisneros MD - 09/01/2024 1:26 PM EDT Thanks Russell, Staff please let patient know what the pharmacist as opined on. Regards, Luciana Cisneros MD * Telephone Encounter - Russell Aguayo [facility] - 09/01/2024 9:46 AM EDT [...] affordable alvarado using Good Rx coupons. At [facility] (his current pharmacy), he can get a 1 mo supply for ~$30. If he switches the prescription to [facility], he can get a 1 mo supply for ~$20. See coupons below. Rivastigmine patches are also available via GoodRx. It appears the cheapest option is through [facility], in which he can get 30 patches for $52. Coupon also below. Sending to PCP to review and provide patient with coupon card information. Russell Dede, PharmD, BCPS Primary Care Clinical Pharmacist Memantine coupon at [facility] Memantine coupon at [facility] Rivastigmine patches coupon at [facility] Telephone encounter Note * Telephone Encounter - Luciana Cisneros MD - 09/01/2024 1:26 PM EDT Thanks Russell, Staff please let patient know what the pharmacist as opined on. Regards, Luciana Cisneros MD [facility]06-12-2025 Discharge summary Author Inderjit Gillespie [facility] Note Date/Time September 01, 2024 10:2 5am [facility] Medical Records Department [address] [place] [address] Emergency Department Summary 09/01/24 MR#: [id number] Acct: [id number] Name: ROBY FLORES Rep #:[id number] : [...] shoulders elbows and wrist. 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 Neurologically he is awake alert. Answering [...] 87.5 H Lymph % (Auto) 4.8 L [place] % (Auto) 5.7 Eos % (Auto) 1.2 [...] Clarity Clear Urine pH 8.0 Ur Specific Macy 1.010 Urine Protein 15 H Urine Glucose [...] No fracture or dislocation present. Reading Location: [facility] 09/01/24 09:05 IMPRESSION: Cerebral atrophy. Mucosal thickening of the ethmoid sinuses as well as opacification of the left maxillary sinus. Reading Location: [facility] Chest X-Ray 09/01/24 09:25 IMPRESSION: No acute abnormality is seen. [facility], 2 views, AP and [...] to thrive Disposition Disposition: Acute Care Hospital [facility] What to do if you have Problems For any increased pain, shortness of breath, bleeding, nausea or vomiting, chestpain, or any unexpected problems, contact your Primary Care Provider. Call [facility] ([phone]) or report to the closest Emergency Room. Call 911 if necessary. 09/01/24 1025 <Electronically signed by Inderjit Gillespie MD> Cosigner Signature (if applicable): CC: Dr. Stas Mora MD ~ Signed [facility] Work Phone: 1(344) 331-628906-12-2025 Discharge summary [facility] Medical Records Department [address] [place] [address] Emergency Department Summary 09/01/24 MR#: [id number] Acct: [id number] Name: ROBY FLORES Rep #:[id number] : 1935 89 From: Inedrjit Gillespie MD PCP: Dr. Stas Mora MD [...] shoulders elbows and wrist. 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 Neurologically he is awake alert. Answering [...] 87.5 H Lymph % (Auto) 4.8 L [place] % (Auto) 5.7 Eos % (Auto) 1.2 [...] Clarity Clear Urine pH 8.0 Ur Specific Macy 1.010 Urine Protein 15 H Urine Glucose [...] of the left maxillary sinus. Reading Location: [facility] Chest X-Ray 09/01/24 09:25 IMPRESSION: No acute abnormality is seen. Reading Location: [facility] Chest x-ray, 2 views, AP and [...] to thrive Disposition Disposition: Acute Care Hospital [facility] What to do if you have Problems For any increased pain, shortness of breath, bleeding, nausea or vomiting, chestpain, or any unexpected problems, contact your Primary Care Provider. Call [facility] ([phone]) or report tothe closest Emergency Room. Call 911 if necessary. 09/01/24 1025 Cosigner Signature (if applicable): CC: Dr. Stas Mora MD ~ Signed [facility]06-12-2025 Telephone encounter Note* Telephone Encounter - Russell Aguayo, [facility] - 09/01/2024 9:46 AM EDT [...] affordable alvarado using Good Rx coupons. At [facility] (his current pharmacy), he can get a 1 mo supply for ~$30. If he switches the prescription to [facility], he can get a 1 mo supply for ~$20. See coupons below. Rivastigmine patches are also available via [employer]. It appears the cheapest option is through [facility], in which he can get 30 patches for $52. Coupon also below. Sending to PCP to review and provide patient with coupon card information. Russell Aguayo, PharmD, BCPS Primary Care Clinical Pharmacist Memantine coupon at [facility] Memantine coupon at [facility] Rivastigmine patches coupon at [facility] Work Phone: 1(284) 652-633106-12-2025 Radiology Diagnostic study note [facility] Imaging Services [address] [place] [address] 329921 Brain/Head without Contrast MR#: [id number] Acct: [id number] Name: ROBY FLORES Rep #: [id number] : 1935 M 89 From: Laith Chavez MD PCP: Dr. Stas Mora MD Status: RE G ER Study:Brain/Head without Contrast Date of Exa m: 09/01/24 Exam# [id number] Ordering Dr: Earlene Gillespie MD PROCEDURE: BRAIN/HEAD [...] Gillespie MD; Dr. Stas Mora MD ~ Director Corporate Security: Signed [facility]06-12-2025 Radiology Diagnostic study note [facility] Imaging Services [address] [place], [place] [address] Chest 1 View (Portable) MR#: [id number] Acct: [id number] Name: ROBY FLORES Rep #: [id number] : 1935 M 89 From: Laith Chavez MD PCP: Dr. Stas Mora MD Status: RE G ER Study:Chest 1 View (Portable) Date of Exam: 09/01/24 Exam# [id number] Ordering Dr: Earlene Gillespie MD PROCEDURE: CHEST [...] abnormality is seen. Reading Location: [facility]- CC: Dr. Inderjit Gillespie MD; Dr. Stas Mora MD ~ Director Corporate Security: Signed [facility]06-12-2025 Radiology Diagnostic study note [facility] Imaging Services [address] [facility] [place] [id number] Hips B/L min 2 views w/ Pelvis MR#: [id number] Acct: [id number] Name: ROBY FLORES Rep #: [id number] : 1935 M 89 From: Laith Chavez MD PCP: Dr. Stas Mora MD Status: RE G ER Study:Hips B/L min 2 views w/ Pelvis Date of Exam: 09/01/24 Exam# [id number] Ordering Dr: Earlene Gillespie MD PROCEDURE: HIPS [...] No fracture or dislocation present. Reading Location: [place] [address] CC: Dr. Inderjit Gillespie MD; Dr. Stas Mora MD ~ Director Corporate Security: Signed [facility]06-11-2025 NoteHNO ID: [id number] Author: LUCIANA CISNEROS MD Service: ? Author [...] and believing his brother, who lives in [place], was present. Jaquan also thought he had a car in [facility] and wanted to retrieve it, despite not having a wheelchair driver's license or a car there. Additionally, [...] condition but denies any aggressive behavior from Jauqan, such as hitting or throwing objects. Jaquan [...] Maintenance Medicare Advantage Annual Wellness Visit Covid-19 Vaccine( season)@ Review Of Systems Constitutional: (+) insomnia Musculoskeletal: [...] excuse any unintended typographical errors. Recording using [employer] software for draft documentation of the visit was discussed with the patient/authorized sales representative gas service; all questions welcomed and answered. Patient/authorized sales representative gas service agreed to proceed Luciana Cisneros [facility]06-11-2025 History of Present illness Narrative* Luciana [...] and believing his brother, who lives in [place], was present. Jaquan also thought he had a car in [facility] and wanted to retrieve it, despite not having a wheelchair driver's license or a car there. Additionally, [...] hour patch memantine (NAMENDA) 10 mg tablet [facility] Maintenance Medicare Advantage Annual Wellness Visit [...] any unintended typographical errors. Recording using ambient [employer] software for draft documentation of the visit was discussed with the patient/authorized sales representative gas service; all questions welcomed and answered. 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 documented in this encounterMercer [facility] Hospital06-11-2025 Instructions* Patient Instructions* Luciana Cisneros MD [...] if your symptoms change. documented in this encounterMercer [facility]06-01-2025 Evaluation note* Diagnosis Onset Date Resolution Status Admit Date Adult failure to thrive acute [facility] 2024 10:24am Chronic anticoagulation acute [facility] 2024 10:24am Contusion of hip acute August 10:24am Fall acute September 01 10:24am History of atrial fibrillation acute September 01, 2024 10:24am History of dementia acute September 01, 2024 10:24am History of TIAs acute August 10:24am Unable to ambulate acute August 212024 10:24am [facility] Work Phone: 1(794) 730-623505-14-2025 Telephone encounter Note* Telephone Encounter - Coretta Jalloh RPh -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 Paroxysmal atrial fibrillation [...] Pharmacy Anticoagulation Clinic Pharmacy Anticoagulation Clinic Pager: [phone]. [facility]12-12-2024 Miscellaneous Notes* Telephone Encounter - Elise Paredes RPh - 03/03/2024 9:32 AM EST [facility] Ambulatory Pharmacy Anticoagulation Clinic Anticoagulation Episode Summary Anticoagulation Care Providers Provider Role Specialty Phone number Stas Mora MD Referring Family Medicine [phone] Roby Flores is a 88 year old [...] ALLERGIES No Known Allergies Indication for Warfarin: jail current use of 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 Elise Paredes [facility] Clinical Pharmacist, Pharmacy Anticoagulation Clinic Pharmacy Anticoagulation Clinic Pager: [phone]. documented in this encounterMer[facility]11-20-2024 Telephone encounter Note * Telephone Encounter - Coretta Jalloh RP - 02/10/2024 9:08 AM EST [facility] Ambulatory Pharmacy Anticoagulation Clinic Anticoagulation Episode Summary Anticoagulation Care Providers Provider Role Specialty Phone number Stas Mora MD Referring Family Medicine [phone] Roby Flores is a 88 year old [...] ALLERGIES No Known Allergies Indication for Warfarin: jail current use of anticoagulant Paroxysmal atrial fibrillation [...] Pharmacy Anticoagulation Clinic Pharmacy Anticoagulation Clinic Pager: [phone]. [facility]11-20-2024 Miscellaneous Notes* Telephone Encounter - Coretta Jalloh RPh - 02/10/2024 9:08 AM EST [facility] Ambulatory Pharmacy Anticoagulation Clinic Anticoagulation Episode Summary Anticoagulation Care Providers Provider Role Specialty Phone number Stas Mora MD Referring Family Medicine [phone] Roby Flores is a 88 year old [...] ALLERGIES No Known Allergies Indication for Warfarin: jail current use of anticoagulant Paroxysmal atrial fibrillation [...] Pharmacy Anticoagulation Clinic Pharmacy Anticoagulation Clinic Pager: [phone]. documented in this encounterMercer [facility] Hospital10-30-2024 Telephone encounter Note * Telephone Encounter - Coretta Jalloh RPh - 01/20/2024 10:19 AM EDT [facility] Ambulatory Pharmacy Anticoagulation Clinic Anticoagulation Episode Summary Anticoagulation Care Providers Provider Role Specialty Phone number Stas Mora MD Referring Family Medicine [phone] Roby Flores is a 88 year old [...] ALLERGIES No Known Allergies Indication for Warfarin: jail current use of anticoagulant Paroxysmal atrial fibrillation [...] Pharmacy Anticoagulation Clinic Pharmacy Anticoagulation Clinic Pager: [phone]. [facility]10-30-2024 Miscellaneous Notes* Telephone Encounter - Coretta Jalloh, Enrique - 01/20/2024 10:19 AM EDT [facility] Ambulatory Pharmacy Anticoagulation Clinic Anticoagulation Episode Summary Anticoagulation Care Providers Provider Role Specialty Phone number Stas Mora MD Referring Family Medicine [phone] Roby Flores is a 88 year old [...] ALLERGIES No Known Allergies Indication for Warfarin: jail current use of anticoagulant Paroxysmal atrial fibrillation [...] Pharmacy Anticoagulation Clinic Pharmacy Anticoagulation Clinic Pager: [phone]. documented in this encounterMercer [facility] Hospital10-14-2024 Telephone encounter Note * Telephone Encounter - Jenna Fitzpatrick APRN.CNP - 01/04/2024 10:41 AM EDT The following approved medication requests have been transmitted electronically. Requested Prescriptions Signed Prescriptions Disp Refills warfarin (COUMADIN) 3 mg tablet 30 tablet 11 Sig: Take 1 tablet by mouth daily as directed. Authorizing Provider: JENNA FITZPATRICK APRN.CNP [facility]10-14-2024 Miscellaneous Notes* Telephone Encounter - Jenna [...] 3 mg rx to be sent to [facility]. Heis taking 3 mg daily and has 1 mg tablets and 2.5 mg tablets. He keeps running out of the 1 mg every 10 days and pharmacy asking for another rx. Pending rx needs completed. Please advise documented in this encounterMercer County [facility] Hospital10-14-2024 Telephone encounter Note * Telephone Encounter - Oliva Westbrook LPN - 01/04/2024 9:33 AM EDT Patient significant other Maria Guadalupe calling asking for a warfarin 3 mg rx to be sent to [facility]. Heis taking 3 mg daily and has 1 mg tablets and 2.5 mg tablets. He keeps running out of the 1 mg every 10 days and pharmacy asking for another rx. Pending rx needs completed. Please advise [facility]10-03-2024 Telephone encounter Note* Telephone Encounter - Elise Paredes [facility] - 12/24/2023 2:29 PM EDT [facility] Ambulatory Pharmacy Anticoagulation Clinic Anticoagulation Episode Summary Anticoagulation Care Providers Provider Role Specialty Phone number Stas Mora MD Referring Family Medicine [phone] Roby Flores is a 88 year old [...] ALLERGIES No Known Allergies Indication for Warfarin: jail current use of anticoagulant Paroxysmal atrial fibrillation [...] Pharmacy Anticoagulation Clinic Pharmacy Anticoagulation Clinic Pager: [phone]. [facility]10-03-2024 Miscellaneous Notes* Telephone Encounter - Elise Paredes RPh - 12/24/2023 2:29 PM EDT [facility] Ambulatory Pharmacy Anticoagulation Clinic Anticoagulation Episode Summary Anticoagulation Care Providers Provider Role Specialty Phone number Stas Mora MD Referring Family Medicine [phone] Roby Flores is a 88 year old [...] ALLERGIES No Known Allergies Indication for Warfarin: 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 Paroxysmal atrial fibrillation [...] Pharmacy Anticoagulation Clinic Pharmacy Anticoagulation Clinic Pager: [phone]. documented in this encounterMercer County [facility] Hospital09-19-2024 Telephone encounter Note * Telephone Encounter - Elise Paredes RPh - 12/10/2023 2:13 PM EDT [facility] Ambulatory Pharmacy Anticoagulation Clinic Anticoagulation Episode Summary Anticoagulation Care Providers Provider Role Specialty Phone number Stas Mora MD Referring Family Medicine [phone] Roby Flores is a 88 year old [...] ALLERGIES No Known Allergies Indication for Warfarin: 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 Paroxysmal atrial fibrillation (hcc) Anticoagulation Episode Summary Current INR goal: 2.0-3.0 Assessment: INR result of 1.9 is SUBtherapeutic due to: unknown cause - did not speak to patient Plan: Current Warfarin Dosing As of 12/10/2023 Full warfarin instructions: 2.5 mg every Sun; 3 mg all other days Left voice message for Gabby at [phone] (home) Advised patient to increase total weekly regimen Next lab INR check scheduled on 12/24/2023 Elise Paredes RPh Clinical Pharmacist, Pharmacy Anticoagulation Clinic Pharmacy Anticoagulation Clinic Pager: [phone]. [facility]09-19-2024 Miscellaneous Notes* Telephone Encounter - Elise Paredes RPh - 12/10/2023 2:13 PM EDT [facility] Ambulatory Pharmacy Anticoagulation Clinic Anticoagulation Episode Summary Anticoagulation Care Providers Provider Role Specialty Phone number Stas Mora MD Referring Family Medicine [phone] Roby Flores is a 88 year old [...] ALLERGIES No Known Allergies Indication for Warfarin: jail current use of anticoagulant Paroxysmal atrial fibrillation (hcc) Anticoagulation Episode Summary Current INR goal: 2.0-3.0 Assessment: INR result of 1.9 is SUBtherapeutic due to: unknown cause - did not speak to patient Plan: Current Warfarin Dosing As of 12/10/2023 Full warfarin instructions: 2.5 mg every Sun; 3 mg all other days Left voice message for Gabby at [phone] (home) Advised patient to increase total weekly regimen Next lab INR check scheduled on 12/24/2023 Elise Paredes RPh Clinical Pharmacist, Pharmacy Anticoagulation Clinic Pharmacy Anticoagulation Clinic Pager: [phone]. documented in this encounterMercer County [facility] Hospital09-05-2024 Telephone encounter Note * Telephone Encounter - Elise Paredes RPh - 11/26/2023 4:32 PM EDT [facility] Ambulatory Pharmacy Anticoagulation Clinic Anticoagulation Episode Summary Anticoagulation Care Providers Provider Role Specialty Phone number Stas Mora MD Referring Family Medicine [phone] Roby Flores is a 88 year old [...] ALLERGIES No Known Allergies Indication for Warfarin: 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 Paroxysmal atrial fibrillation [...] Pharmacy Anticoagulation Clinic Pharmacy Anticoagulation Clinic Pager: [phone]. [facility]09-05-2024 Miscellaneous Notes* Telephone Encounter - Elise Paredes RPh - 11/26/2023 4:32 PM EDT [facility] Ambulatory Pharmacy Anticoagulation Clinic Anticoagulation Episode Summary Anticoagulation Care Providers Provider Role Specialty Phone number Stas Mora MD Referring Family Medicine [phone] Roby Flores is a 88 year old [...] ALLERGIES No Known Allergies Indication for Warfarin: jail current use of anticoagulant Paroxysmal atrial fibrillation [...] Patient denies need for refills. Elise Paredes [facility] Clinical Pharmacist, Pharmacy Anticoagulation Clinic Pharmacy Anticoagulation Clinic Pager: [phone]. * Telephone Encounter - Satish HuangLining PresserParmjit Berry - 11/26/2023 4:26 PM EDT Patient's spouse called regarding message. Patient typically takes warfarin in the morning but did not take any today. Patient's spouse doesn't understand why its low all the sudden. Denies changes in medication/ diet or missed doses. Call transferred to [facility] Parmjit Covarrubias Engine Inspector (syrup maker) Pharmacy Anticoagulation Clinic * Telephone Encounter - Elise Paredes [facility] - 11/26/2023 4:21 PM EDT [facility] Ambulatory Pharmacy Anticoagulation Clinic Anticoagulation Episode Summary Anticoagulation Care Providers Provider Role Specialty Phone number Stas Mora MD Referring Family Medicine [phone] Roby Flores is a 88 year old [...] ALLERGIES No Known Allergies Indication for Warfarin: 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 Paroxysmal atrial fibrillation [...] Pharmacy Anticoagulation Clinic Pharmacy Anticoagulation Clinic Pager: [phone]. documented in this encounterMercer County Community Hospital09-05-2024 Telephone encounter Note * Telephone Encounter - Satish (Lining PresserParmjit Berry - 11/26/2023 4:26 PM EDT Patient's spouse called regarding message. Patient typically takes warfarin in the morning but did not take any today. Patient's spouse doesn't understand why its low all the sudden. Denies changes in medication/ diet or missed doses. Call transferred to [facility] Parmjit Covarrubias, Engine Inspector (syrup maker) Pharmacy Anticoagulation Clinic [facility]09-05-2024 Telephone encounter Note* Telephone Encounter - Elise Paredes, [facility] - 11/26/2023 4:21 PM EDT [facility] Ambulatory Pharmacy Anticoagulation Clinic Anticoagulation Episode Summary Anticoagulation Care Providers Provider Role Specialty Phone number Stas Mora MD Referring Family Medicine [phone] Roby Flores is a 88 year old [...] ALLERGIES No Known Allergies Indication for Warfarin: jail current use of anticoagulant Paroxysmal atrial fibrillation [...] Pharmacy Anticoagulation Clinic Pharmacy Anticoagulation Clinic Pager: [phone]. [facility]09-05-2024 History of Present illness Narrative* Stas [...] Coronary atherosclerosis of unspecified type of vessel, bill moore's slough or graft Comment: Coronary artery disease No [...] Past Histories independently gathered by the clinical it technical support specialist and the remaining scribed note accurately describes [...] AM. Rosie Cruz MA documented in this encounterMercer County Community Hospital09-05-2024 NoteHNO ID: [id number] Author: STAS MORA MD Service: ? Author [...] out his medication for him to take. - Declines RSV vaccine. Will receive Flu vaccine through Pharmacy with . Will check with local Pharmacy for updated Covid vaccine. Past medical history, appointments, medications, allergies reviewed. Previous Medical History PAST MEDICAL HISTORY No date: Coronary atherosclerosis of unspecified type of vessel, bill moore's slough or graft Comment: Coronary artery disease No [...] Advance Directive Discussion Compl (more content not included)...[facility]08-28-2024 Telephone encounter Note* Telephone Encounter - Coretta Jalloh [facility] - 11/18/2023 4:30 PM EDT [facility] Ambulatory Pharmacy Anticoagulation Clinic Anticoagulation Episode Summary Anticoagulation Care Providers Provider Role Specialty Phone number Stas Mora MD Referring Family Medicine [phone] Roby Flores is a 88 year old [...] ALLERGIES No Known Allergies Indication for Warfarin: 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 Paroxysmal atrial fibrillation [...] Pharmacy Anticoagulation Clinic Pharmacy Anticoagulation Clinic Pager: [phone]. [facility]08-28-2024 Miscellaneous Notes* Telephone Encounter - Coretta Jalloh RPh - 11/18/2023 4:30 PM EDT [facility] Ambulatory Pharmacy Anticoagulation Clinic Anticoagulation Episode Summary Anticoagulation Care Providers Provider Role Specialty Phone number Stas Mora MD Referring Family Medicine [phone] Roby Flores is a 88 year old [...] ALLERGIES No Known Allergies Indication for Warfarin: 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 Paroxysmal atrial fibrillation [...] Pharmacy Anticoagulation Clinic Pharmacy Anticoagulation Clinic Pager: [phone]. documented in this encounterMercer County Community Hospital08-26-2024 Telephone encounter Note * Telephone Encounter - Elvis Kearney APRN.CNP - 11/16/2023 9:39 AM EDT The following approved medication requests have been transmitted electronically. Requested Prescriptions Pending Prescriptions Disp Refills warfarin (COUMADIN) 1 mg tablet 30 tablet 5 Sig: Take 1 tablet by mouth once daily. Elvis Kearney APRN.CNP [facility]08-26-2024 Miscellaneous Notes* Telephone Encounter - Elvis Keareny APRN.CNP - 11/16/2023 9:39 AM EDT The [...] 16, 2023 9:00 AM documented in this encounterMercer County Community Hospital08-26-2024 Telephone encounter Note * Telephone Encounter [...] Shahid MA November 16, 2023 9:06 AM [facility]08-26-2024 Telephone encounter Note* Telephone Encounter - [...] Keke Rinaldi November 16, 2023 9:00 AM [facility]07-24-2024 Telephone encounter Note* Telephone Encounter - Coretta Jalloh [facility] - 10/14/2023 4:21 PM EDT [facility] Ambulatory Pharmacy Anticoagulation Clinic Anticoagulation Episode Summary Anticoagulation Care Providers Provider Role Specialty Phone number Stas Mora MD Referring Family Medicine [phone] Roby Flores is a 88 year old [...] ALLERGIES No Known Allergies Indication for Warfarin: 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 Paroxysmal atrial fibrillation [...] Pharmacy Anticoagulation Clinic Pharmacy Anticoagulation Clinic Pager: [phone]. [facility]07-24-2024 Miscellaneous Notes* Telephone Encounter - Coretta Jalloh RPh - 10/14/2023 4:21 PM EDT [facility] Ambulatory Pharmacy Anticoagulation Clinic Anticoagulation Episode Summary Anticoagulation Care Providers Provider Role Specialty Phone number Stas Mora MD Referring Family Medicine [phone] Roby Flores is a 88 year old [...] ALLERGIES No Known Allergies Indication for Warfarin: jail current use of anticoagulant Paroxysmal atrial fibrillation [...] Patient denies need for refills. Coretta Jalloh riya Clinical Pharmacist, Pharmacy Anticoagulation Clinic Pharmacy Anticoagulation Clinic Pager: [phone]. documented in this encounterMercer County Community Hospital06-26-2024 Telephone encounter Note * Telephone Encounter - Colleen Sommer RPh - 09/16/2023 11:15 AM EDT [facility] Ambulatory Pharmacy Anticoagulation Clinic Anticoagulation Episode Summary Anticoagulation Care Providers Provider Role Specialty Phone number Stas Mora MD Referring Family Medicine [phone] Roby Flores is a 88 year old [...] Pharmacy Anticoagulation Clinic Pharmacy Anticoagulation Clinic Pager: [phone]. [facility]06-26-2024 Miscellaneous Notes* Telephone Encounter - Colleen Sommer RPh - 09/16/2023 11:15 AM EDT [facility] Ambulatory Pharmacy Anticoagulation Clinic Anticoagulation Episode Summary Anticoagulation Care Providers Provider Role Specialty Phone number Stas Mora MD Referring Family Medicine [phone] Roby Flores is a 88 year old [...] Pharmacy Anticoagulation Clinic Pharmacy Anticoagulation Clinic Pager: [phone]. documented in this encounterMercer County Community Hospital06-25-2024 Instructions* Patient Instructions* Rosie Cruz MA - 09/15/2023 8:48 AM EDT Starting Lasix (Furosemide) 20 mg once daily as needed. You can use the medication on days where swelling is increased. Elevate legs through out the day to help with swelling. Decrease sodium in diet. documented in this encounterMercer County Community Hospital06-25-2024 History of Present illness Narrative* Stas [...] Coronary atherosclerosis of unspecified type of vessel, bill moore's slough or graft Coronary artery disease Other and [...] Past Histories independently gathered by the clinical it technical support specialist and the remaining scribed note accurately describes [...] AM. Rosie Cruz MA documented in this encounterMercer County [facility] Hospital06-24-2024 Telephone encounter Note * Telephone Encounter [...] difficulty breathing Protocols used: Leg Swelling and [id number] [facility]06-24-2024 Miscellaneous Notes* Telephone Encounter - Marian [...] difficulty breathing Protocols used: Leg Swelling and [id number] * Telephone Encounter - Elana Valdes RN - 09/14/2023 2:52 PM EDT Called and left a voicemail for the Patient and on the Pts girlfriends phone to have the Pt call back and ask for a nurse to receive the providers message. We need more information about his bilateral leg swelling that he was scheduled for tomorrow. Elana Valdes RN documented in this encounterMercer County Community Hospital06-24-2024 Telephone encounter Note * Telephone Encounter [...] was scheduled for tomorrow. Elana Valdes RN [facility]06-12-2024 Telephone encounter Note* Telephone Encounter - Coretta Jalloh RPh - 09/02/2023 3:08 PM EDT [facility] Ambulatory Pharmacy Anticoagulation Clinic Anticoagulation Episode Summary Anticoagulation Care Providers Provider Role Specialty Phone number Stas Mora MD Referring Family Medicine [phone] Roby Flores is a 88 year old [...] ALLERGIES No Known Allergies Indication for Warfarin: jail current use of anticoagulant Paroxysmal atrial fibrillation [...] Pharmacy Anticoagulation Clinic Pharmacy Anticoagulation Clinic Pager: [phone]. [facility]06-12-2024 Miscellaneous Notes* Telephone Encounter - Coretta Jalloh RPh - 09/02/2023 3:08 PM EDT [facility] Ambulatory Pharmacy Anticoagulation Clinic Anticoagulation Episode Summary Anticoagulation Care Providers Provider Role Specialty Phone number Stas Mora MD Referring Family Medicine [phone] Roby Flores is a 88 year old [...] ALLERGIES No Known Allergies Indication for Warfarin: 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 Paroxysmal atrial fibrillation [...] Pharmacy Anticoagulation Clinic Pharmacy An[facility] Pager: [phone]. documented in [facility] encounter[facility] Telephone encounter Note * Telephone Encounter - Hakan JallohanthEnrique bronson - 08/26/2023 5:03 PM EDT [facility] Anticoagulation Episode Summary Anticoagulation Care Providers Provider Role Specialty Phone number Stas Mora MD Referring Family Medicine [phone] Roby Flores is a 88 year old [...] ALLERGIES No Known Allergies Indication for Warfarin: 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 Paroxysmal atrial fibrillation [...] Pharmacy Anticoagulation Clinic Pharmacy Antico[facility] Pager: [phone]. [facility]06-05-[facility]24 Miscellaneous Notes* Telephone Encounter - Coretta Jalloh RPh - 08/26/2023 5:03 PM EDT [facility] Anticoagulation Episode Summary Anticoagulation Care Providers Provider Role Specialty Phone number Stas Mora MD Referring Family Medicine [phone] Roby Flores is a 88 year old [...] ALLERGIES No Known Allergies Indication for Warfarin: jail current use of anticoagulant Paroxysmal atrial fibrillation [...] Pharmacy Anticoagulation Clinic Pharmacy Anticoagulation Clinic Pager: [phone]. documented in this encounterMer[facility]05-29-2024 Telephone encounter Note * Telephone Encounter - Coretta Jalloh RPh - 08/19/2023 5:09 PM EDT [facility] An[facility] Clinic Anticoagulation Episode Summary Anticoagulation Care Providers Provider Role Specialty Phone number Stas Mora MD Referring Family Medicine [phone] Roby Flores is a 88 year old [...] Pharmacy Anticoagulation Clinic Pharmacy [facility] Pager: [phone]. [facility] Miscellaneous Notes* Telephone Encounter - Coretta Jalloh RPh - 08/19/2023 5:09 PM EDT [facility] Amb[facility] Anticoagulation Clinic Anticoagulation Episode Summary Anticoagulation Care Providers Provider Role Specialty Phone number Stas Mora MD Referring Family Medicine [phone] Roby Flores is a 88 year old [...] Pharmacy Anticoagulation Clinic Pharmacy Anticoagulation Clinic Pager: [phone]. documented in this encounterMercer [facility]05-24-2024 History of Present illness Narrative* Stas [...] thinks he is being sued by a pentecostalism and thathe was given a letter about it, doesn't know who the brass finisher is or where the pentecostalism is. states this is not true. He was looking for his brother who lives out of state, thought he was still staying with them, however he has not been up to [place] since Jan. No hallucinations. Is not leaving [...] Coronary atherosclerosis of unspecified type of vessel, bill moore's slough or graft Coronary artery disease Other and [...] Past Histories independently gathered by the clinical it technical support specialist and the remaining scribed note accurately describes [...] AM. Marta Palacio MA documented in this encounterMer[facility]05-22-2024 Telephone encounter Note * Telephone Encounter - Yeimi Coretta [facility] - 08/12/2023 4:27 PM EDT [facility] Anticoagulation Episode Summary Anticoagulation Care Providers Provider Role Specialty Phone number Stas Mora MD Referring Family Medicine [phone] Roby Flores is a 87 year old [...] ALLERGIES No Known Allergies Indication for Warfarin: 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 Paroxysmal atrial fibrillation [...] Pharmacy Anticoagulation Clinic Pharmacy Antico[facility] Pager: [phone]. [facility]05-[facility] Miscellaneous Notes* Telephone Encounter - Coretta Jalloh RPh - 08/12/2023 4:27 PM EDT [facility] An[facility] Anticoagulation Episode Summary Anticoagulation Care Providers Provider Role Specialty Phone number Stas Mora MD Referring Family Medicine [phone] Roby Flores is a 87 year old [...] ALLERGIES No Known Allergies Indication for Warfarin: jail current use of anticoagulant Paroxysmal atrial fibrillation [...] Pharmacy Anticoagulation Clinic Pharmacy Anticoagulation Clinic Pager: [phone]. documented in this encounterMercer [facility]05-15-2024 Telephone encounter Note * Telephone Encounter - Coretta Jalloh RPh - 08/05/2023 4:41 PM EDT [facility] An[facility] Anticoagulation Episode Summary Anticoagulation Care Providers Provider Role Specialty Phone number Stas Mora MD Referring Family Medicine [phone] Roby Flores is a 87 year old [...] ALLERGIES No Known Allergies Indication for Warfarin: 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 Paroxysmal atrial fibrillation [...] Pharmacy Anticoagulation Clinic Pharmacy An[facility] Pager: [phone]. [facility] Miscellaneous Notes* Telephone Encounter - Coretta Jalloh RPh - 08/05/2023 4:41 PM EDT [facility] An[facility] Anticoagulation Episode Summary Anticoagulation Care Providers Provider Role Specialty Phone number Stas Mora MD Referring Family Medicine [phone] Roby Flores is a 87 year old [...] ALLERGIES No Known Allergies Indication for Warfarin: jail current use of anticoagulant Paroxysmal atrial fibrillation [...] Pharmacy Anticoagulation Clinic Pharmacy Anticoagulation Clinic Pager: [phone]. documented in this encounterMercer [facility]05-08-2024 Telephone encounter Note * Telephone Encounter - Elena Lopez RPh - 07/29/2023 3:21 PM EDT [facility] An[facility] Anticoagulation Episode Summary Anticoagulation Care Providers Provider Role Specialty Phone number Stas Mora MD Referring Family Medicine [phone] Roby Flores is a 87 year old [...] ALLERGIES No Known Allergies Indication for Warfarin: 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 Paroxysmal atrial fibrillation [...] Pharmacy Anticoagulation Clinic Pharmacy Antico[facility] Pager: [phone]. [facility]05-[facility] Miscellaneous Notes* Telephone Encounter - Elena Lopez RPh - 07/29/2023 3:21 PM EDT [facility] Amb[facility]acy Anticoagulation Clinic Anticoagulation Episode Summary Anticoagulation Care Providers Provider Role Specialty Phone number Stas Mora MD Referring Family Medicine [phone] Roby Flores is a 87 year old [...] ALLERGIES No Known Allergies Indication for Warfarin: 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 Paroxysmal atrial fibrillation [...] Pharmacy Anticoagulation Clinic Pharmacy Anticoagulation Clinic Pager: [phone]. documented in this encounterMercer [facility]05-01-2024 Telephone encounter Note * Telephone Encounter - Coretta Jalloh RPh - 07/22/2023 4:40 PM EDT [facility] Anticoagulation Episode Summary Anticoagulation Care Providers Provider Role Specialty Phone number Stas Mora MD Referring Family Medicine [phone] Roby Flores is a 87 year old [...] ALLERGIES No Known Allergies Indication for Warfarin: jail current use of anticoagulant Paroxysmal atrial fibrillation [...] Pharmacy Anticoagulation Clinic Pharmacy Anticoagulation Clinic Pager: [phone]. [facility]05-01-[facility] Miscellaneous Notes* Telephone Encounter - Coretta Jalloh RPh - 07/22/2023 4:40 PM EDT [facility] An[facility] Clinic Anticoagulation Episode Summary Anticoagulation Care Providers Provider Role Specialty Phone number Stas Mora MD Referring Family Medicine [phone] Roby Flores is a 87 year old [...] ALLERGIES No Known Allergies Indication for Warfarin: jail current use of anticoagulant Paroxysmal atrial fibrillation [...] Pharmacy Anticoagulation Clinic Pharmacy Anticoagulation Clinic Pager: [phone]. documented in this encounterMercer County [facility]04-24-2024 Telephone encounter Note * Telephone Encounter - Coretta Jalloh RPh - 07/15/2023 3:18 PM EDT [facility] Anticoagulation Episode Summary Anticoagulation Care Providers Provider Role Specialty Phone number Stas Mora MD Referring Family Medicine [phone] Roby Flores is a 87 year old [...] ALLERGIES No Known Allergies Indication for Warfarin: jail current use of anticoagulant Paroxysmal atrial fibrillation [...] Pharmacy Anticoagulation Clinic Pharmacy Antico[facility] Pager: [phone]. [facility]04-[facility] Miscellaneous Notes* Telephone Encounter - Coretta Jalloh RPh - 07/15/2023 3:18 PM EDT [facility] Ambulatory [facility]acy Anticoagulation Clinic Anticoagulation Episode Summary Anticoagulation Care Providers Provider Role Specialty Phone number Stas Mora MD Referring Family Medicine [phone] Roby Flores is a 87 year old [...] ALLERGIES No Known Allergies Indication for Warfarin: 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 Paroxysmal atrial fibrillation [...] Pharmacy Anticoagulation Clinic Pharmacy Anticoagulation Clinic Pager: [phone]. documented in this encounterMercer County [facility] Hospital04-17-2024 Miscellaneous Notes* Telephone Encounter - Coretta Jalloh RPh - 07/08/2023 4:36 PM EDT [facility] An[facility] Anticoagulation Episode Summary Anticoagulation Care Providers Provider Role Specialty Phone number Stas Mora MD Referring Family Medicine [phone] Roby Flores is a 87 year old [...] ALLERGIES No Known Allergies Indication for Warfarin: jail current use of anticoagulant Paroxysmal atrial fibrillation [...] Pharmacy Anticoagulation Clinic Pharmacy Anticoagulation Clinic Pager: [phone]. documented in this encounterMercer County [facility] Hospital04-10-2024 Miscellaneous Notes* Telephone Encounter - Coretta Jalloh RPh - 07/01/2023 5:20 PM EDT [facility] An[facility] Anticoagulation Episode Summary Anticoagulation Care Providers Provider Role Specialty Phone number Stas Mora MD Referring Family Medicine [phone] Roby Flores is a 87 year old [...] ALLERGIES No Known Allergies Indication for Warfarin: 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 Paroxysmal atrial fibrillation [...] Pharmacy Anticoagulation Clinic Pharmacy Anticoagulation Clinic Pager: [phone]. documented in this encounterMercer County [facility] Hospital04-04-2024 Telephone encounter Note * Telephone Encounter - Adrian ([employer])Elana - 06/25/2023 5:14 PM EDT Images from [...] and remains on Remote TM list. Elana Huang[employer]) [facility]04-04-[facility] Miscellaneous Notes* Telephone Encounter - Adrian HuangGreat [employer] TeaElana Berry - 06/25/2023 5:14 PM EDT Images [...] remains on Remote TM list. Elana Campbell ([employer]) * Telephone Encounter - Stas Mora MD - 06/25/2023 4:44 PM EDT It looks like my office became involved because the on-call doctor was called with his elevated INR. I would prefer he stay with the pharmacy for his routine monitoring. Stas Mora MD * Telephone Encounter - Adrian ([employer])Elana - 06/25/2023 4:03 PM EDT Pharm Phone [...] this time Please advise. Elana Campbell CPhT (Engine Inspector) Pharmacy Anticoagulation Clinic documented in this encounterMercer County Community Hospital04-04-2024 Telephone encounter Note * Telephone Encounter - Stas Mora MD - 06/25/2023 4:44 PM EDT It looks like my office became involved because the on-call doctor was called with his elevated INR. I would prefer he stay with the pharmacy for his routine monitoring. Stas Mora MD [facility]04-04-2024 Telephone encounter Note* Telephone Encounter - Adrian ([employer])Elana - 06/25/2023 4:03 PM EDT Pharm Phone [...] this time Please advise. Elana Campbell CPhT (Engine Inspector) Pharmacy Anticoagulation [facility]04-03-2024 Miscellaneous Notes* Telephone Encounter - Jason [...] with VKA drugs, such as warfarin, the [employer] 2012 Guideline recommends [...] RA, et al. JACC 2017, 70: 252-289 Confirmed that pt is taking 1 mg daily. No changes to diet, medications, missed or extra doses, etc. Keke Tsang MA documented in this encounterMercer County Community Hospital03-22-2024 Miscellaneous Notes* Telephone Encounter - Marta Palacio MA - 06/12/2023 11:21 AM EDT Gabby notified and voiced understanding. Tracker and med list updated. Marta Palacio MA * Telephone Encounter - Luz Elena Giraldo APRN.CNP - 06/12/2023 9:39 AM EDT Continue current Coumadin dose, recheck again in 2 weeks. Luz Elena Giraldo APRN.HEDGE FUND ACCOUNTANT * Telephone Encounter - Rosie Cruz Ma - 06/11/2023 4:24 PM EDT Last INR: PT INR 2.2 06/11/2023 Current dose of coumadin is: 1 mg daily. Last date of dose change: 06/08/23. Previous INR (date and result): 3.2 on 06/08/23 Additional Clinical Information or narrative: no Rosie Cruz Ma documented in this encounterMercer County Community Hospital03-18-2024 Miscellaneous Notes* Telephone Encounter - Keke [...] Information or narrative: no documented in this encounterMercer County Community Hospital03-15-2024 Miscellaneous Notes* Telephone Encounter - Halina [...] went over notes below from Jenna Fitzpatrick MET[employer] ANNEALER. She said no change in his diet, [...] without answer. INR was 6.9. Jenna Fitzpatrick APRN.HEDGE FUND ACCOUNTANT documented in this encounterMercer County Community Hospital03-15-2024 Miscellaneous Notes* Telephone Encounter - Marta Palacio MA - 06/05/2023 10:15 AM EDT See phone note 06/05/23 with Jenna Fitzpatrick. Marta Palacio MA * Telephone Encounter - Jasmin Bell MD - 06/04/2023 7:59 PM EDT Been trying to call patient at numbers give and goes straight to . Sending [employer] message in case will see that sooner. After multiple attempts, I called [facility]. They cannot call the patient but if the patient calls them, they will conference call with me. documented in this encounterMercer County Community Hospital03-15-2024 Miscellaneous Notes* Telephone Encounter - Marta [...] message on daughter Anabella's mobile. Sent a [employer] message too. Called [facility] and the will conference call me if patient calls them. documented in this encounterMercer County Community Hospital03-14-2024 Miscellaneous Notes* Telephone Encounter - Hortencia Winston RN - 06/04/2023 8:[address] Bell has left messages for the patient to call back regarding a critical lab. documented in this encounterMercer County Community Hospital03-14-2024 Miscellaneous Notes* Telephone Encounter - Minda [...] LPN * Telephone Encounter - Jenna Fitzpatrick APRN.HEDGE FUND ACCOUNTANT - 06/04/2023 11:37 AM EDT Can you [...] has any questions. Thank you. Jenna Fitzpatrick APRN.HEDGE FUND ACCOUNTANT documented in this encounterMercer County Community Hospital03-13-2024 Miscellaneous Notes* Telephone Encounter - Coretta Jalloh [facility] - 06/03/2023 3:22 PM EDT [facility] Amb[facility] Anticoagulation Clinic Anticoagulation Episode Summary Anticoagulation Care Providers Provider Role Specialty Phone number Stas Mora MD Referring Family Medicine [phone] Roby Flores is a 87 year old [...] ALLERGIES No Known Allergies Indication for Warfarin: 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 Paroxysmal atrial fibrillation [...] Pharmacy Anticoagulation Clinic Pharmacy Anticoagulation Clinic Pager: [phone]. documented in this encounterMercer County Community Hospital03-11-2024 History of Present illness Narrative* Stas [...] Coronary atherosclerosis of unspecified type of vessel, bill moore's slough or graft Coronary artery disease Other and [...] unspecified vessel or lesion type, unspecified whether bill moore's slough or transplanted heart - ICD9: 414.00, ICD10: [...] Past Histories independently gathered by the clinical it technical support specialist and the remaining scribed note accurately describes [...] PM. Marta Palacio MA documented in this encounterMercer County Community Hospital03-06-2024 Miscellaneous Notes* Telephone Encounter - Coretta Jalloh [facility] - 05/27/2023 2:23 PM EST [facility] Anticoagulation Episode Summary Anticoagulation Care Providers Provider Role Specialty Phone number Stas Mora MD Referring Family Medicine [phone] Roby Flores is a 87 year old year old male patient being evaluated today for a [facility] Anticoagulation Episode Summary Anticoagulation Care Providers Provider Role Specialty Phone number Stas Mora MD Referring Family Medicine [phone] Roby Flores is a 87 year old [...] ALLERGIES No Known Allergies Indication for Warfarin: 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 Paroxysmal atrial fibrillation [...] Pharmacy Anticoagulation Clinic Pharmacy Anticoagulation Clinic Pager: [phone]. documented in this encounterMercer County Community Hospital02-28-2024 Miscellaneous Notes* Telephone Encounter - Coretta Jalloh RPh - 05/20/2023 2:36 PM EST [facility] Antico[facility] Clinic Anticoagulation Episode Summary Anticoagulation Care Providers Provider Role Specialty Phone number Stas Mora MD Referring Family Medicine [phone] Roby Flores is a 87 year old [...] ALLERGIES No Known Allergies Indication for Warfarin: 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 Paroxysmal atrial fibrillation [...] Pharmacy Anticoagulation Clinic Pharmacy Anticoagulation Clinic Pager: [phone]. documented in this encounterMercer County Community Hospital02-21-2024 Miscellaneous Notes* Telephone Encounter - Senia Phillips RPh - 05/13/2023 4:06 PM EST [facility] Ambulatory [facility]acy Anticoagulation Clinic Anticoagulation Episode Summary Anticoagulation Care Providers Provider Role Specialty Phone number Stas Mora MD Referring Family Medicine [phone] Roby Flores is a 87 year old [...] ALLERGIES No Known Allergies Indication for Warfarin: 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 Paroxysmal atrial fibrillation [...] Pharmacy Anticoagulation Clinic Pharmacy Anticoagulation Clinic Pager: [phone]. documented in this encounterMercer County Community Hospital02-14-2024 Miscellaneous Notes* Telephone Encounter - Coretta Jalloh RPh - 05/06/2023 3:14 PM EST [facility] Antico[facility] Clinic Anticoagulation Episode Summary Anticoagulation Care Providers Provider Role Specialty Phone number Stas Mora MD Referring Family Medicine [phone] Roby Flores is a 87 year old [...] ALLERGIES No Known Allergies Indication for Warfarin: 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 Paroxysmal atrial fibrillation [...] Pharmacy Anticoagulation Clinic Pharmacy Anticoagulation Clinic Pager: [phone]. documented in this encounterMercer County Community Hospital02-07-2024 Miscellaneous Notes* Telephone Encounter - Coretta Jallho RPh - 04/29/2023 4:00 PM EST [facility] An[facility] Anticoagulation Episode Summary Anticoagulation Care Providers Provider Role Specialty Phone number Stas Mora MD Referring Family Medicine [phone] Roby Flores is a 87 year old [...] ALLERGIES No Known Allergies Indication for Warfarin: jail current use of anticoagulant Paroxysmal atrial fibrillation [...] Pharmacy Anticoagulation Clinic Pharmacy Anticoagulation Clinic Pager: [phone]. documented in this encounterMercer County Community Hospital12-01-2023 Miscellaneous Notes* Telephone Encounter - Elise Paredes RP - 02/20/2023 3:37 PM EST [facility] Anticoagulation Clinic Anticoagulation Episode Summary Anticoagulation Care Providers Provider Role Specialty Phone number Stas Mora MD Referring Family Medicine [phone] Roby Flores is a 87 year old [...] ALLERGIES No Known Allergies Indication for Warfarin: jail current use of anticoagulant Paroxysmal atrial fibrillation [...] Pharmacy Anticoagulation Clinic Pharmacy Anticoagulation Clinic Pager: [phone]. documented in this encounterMercer County Community Hospital11-28-2023 Miscellaneous Notes* Telephone Encounter - Franca [...] evaluation Stas Mora MD documented in this encounterMercer County Community Hospital11-28-2023 History of Present illness Narrative* Janelle [...] 17, 2023 7:43 AM documented in this encounterMercer County Community Hospital11-27-2023 History of Present illness Narrative* Stas Mora MD - 02/16/2023 2:00 PM EST Chief Complaint Patient presents with: ED Follow-up HPI Roby Flores is a 87 year old male who presents here today for ER Follow Up.. Pt went to the [facility] ER on 02/10/23 with c/o fatigue, [...] Recheck in 1 week. Below copied from [employer]: Chief Complaint: Fatigue Informant: patient Onset/Context/Timing Onset: [...] Coronary atherosclerosis of unspecified type of vessel, bill moore's slough or graft Coronary artery disease Other and [...] Completed Pneumococcal Vaccine: 65+ Completed Data reviewed [facility] ER reports 02/10/23 ASSESSMENT/PLAN: 1. Cerebral [...] Past Histories independently gathered by the clinical it technical support specialist and the remaining scribed note accurately describes [...] PM. Marta Palacio Ma documented in this encounterMercer County Community Hospital11-24-2023 Miscellaneous Notes* Telephone Encounter - Elise Paredes [facility] - 02/13/2023 3:56 PM EST [facility] Anticoagulation Episode Summary Anticoagulation Care Providers Provider Role Specialty Phone number Stas Mora MD Referring Family Medicine [phone] Roby Flores is a 87 year old [...] ALLERGIES No Known Allergies Indication for Warfarin: jail current use of anticoagulant Paroxysmal atrial fibrillation [...] INR check scheduled on 02/20/2023 Elise Paredes [facility] Clinical Pharmacist, Pharmacy Anticoagulation Clinic Pharmacy Anticoagulation Clinic Pager: [phone]. documented in this encounterMercer County Community Hospital11-17-2023 Miscellaneous Notes* Telephone Encounter - Senia Phillips [facility] - 02/06/2023 4:28 PM EST [facility] Antico[facility] Clinic Anticoagulation Episode Summary Anticoagulation Care Providers Provider Role Specialty Phone number Stas Moar MD Referring Family Medicine [phone] Roby Flores is a 87 year old [...] ALLERGIES No Known Allergies Indication for Warfarin: jail current use of anticoagulant Paroxysmal atrial fibrillation [...] Pharmacy Anticoagulation Clinic Pharmacy Anticoagulation Clinic Pager: [phone]. documented in this encounterMercer County Community Hospital10-06-2023 Miscellaneous Notes* Telephone Encounter - Senia Phillips RPh - 12/26/2022 3:04 PM EDT [facility] Ambulatory [facility] Anticoagulation Clinic Anticoagulation Episode Summary Anticoagulation Care Providers Provider Role Specialty Phone number Stas Mora MD Referring Family Medicine [phone] Roby Flores is a 87 year old [...] ALLERGIES No Known Allergies Indication for Warfarin: jail current use of anticoagulant Paroxysmal atrial fibrillation (hcc) Anticoagulation Episode Summary Current INR goal: 2.0-3.0 Assessment: INR result of 2.5 is therapeutic Plan: Current Warfarin Dosing As of 12/26/2022 Full warfarin instructions: 2.5 mg every day Sent [employer] message Advised patient to continue current weekly dose as noted above Next lab INR check scheduled on 01/09/2023 Senia Phillips RPh Clinical Pharmacist, Pharmacy Anticoagulation Clinic Pharmacy Anticoagulation Clinic Pager: [phone]. documented in this encounterMercer County [facility]09-29-2023 Miscellaneous Notes* Telephone Encounter - Senia Phillips RPh - 12/19/2022 4:30 PM EDT [facility] Anticoagulation Episode Summary Anticoagulation Care Providers Provider Role Specialty Phone number Stas Mora MD Referring Family Medicine [phone] Roby Flores is a 87 year old [...] ALLERGIES No Known Allergies Indication for Warfarin: 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 Paroxysmal atrial fibrillation (hcc) Anticoagulation Episode Summary Current INR goal: 2.0-3.0 Assessment: INR result of 2.0 is therapeutic Plan: Current Warfarin Dosing As of 12/19/2022 Full warfarin instructions: 2.5 mg every day Sent Xhale message Advised patient to continue current weekly dose as noted above Next lab INR check scheduled on 01/02/2023 Senia Phillips RPh Clinical Pharmacist, Pharmacy Anticoagulation Clinic Pharmacy Anticoagulation Clinic Pager: [phone]. documented in this encounterMercer County Community Hospital09-22-2023 Miscellaneous Notes* Telephone Encounter - Senia Phillips RPh - 12/12/2022 4:01 PM EDT [facility] Anticoagulation Episode Summary Anticoagulation Care Providers Provider Role Specialty Phone number Stas Mora MD Referring Family Medicine [phone] Roby Flores is a 87 year old [...] ALLERGIES No Known Allergies Indication for Warfarin: 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 Paroxysmal atrial fibrillation [...] Pharmacy Anticoagulation Clinic Pharmacy Anticoagulation Clinic Pager: [phone]. documented in this encounterMercer County Community Hospital09-01-2023 Miscellaneous Notes* Telephone Encounter - Jeimy Duong RPh - 11/21/2022 2:38 PM EDT [facility] Amb[facility] Anticoagulation Clinic Anticoagulation Episode Summary Anticoagulation Care Providers Provider Role Specialty Phone number Stas Mora MD Referring Family Medicine [phone] Roby Flores is a 87 year old [...] Pharmacy Anticoagulation Clinic Pharmacy Anticoagulation Clinic Pager: [phone]. documented in this encounterMercer County Community Hospital08-28-2023 Hospital Discharge instructions Patient Education 11/17/2022 [...] Wound changes colors Numbness around the wound [id number] [employer]. [address] [place] [address], [place] [address]. All rights reserved. This information is not [...] the ears or bruising around the eyes 4319-6217 [employer] [address] [place] [address], [place] [address]. All rights reserved. This information is not intended as a substitute for professional medical care. Always follow yourhealthcare professional's instructions. Follow Up Care 11/17/2022 15:05:08 With:Call Physician Referral Address:Unknown When:2-4 days [facility] Note Discharge Instructions Thank you for allowing [facility] to assist you with your healthcare needs. [...] Wound changes colors Numbness around the wound 7366-7856 [employer] [address] [place] [address]. All rights reserved. This information is not [...] the ears or bruising around the eyes 5741-5177 [employer] [address] [place] [address], [place] [address]. All rights reserved. This information is not intended as a substitute for professional medical care. Always follow yourhealthcare professional's instructions. Additional Information VACCINATE! IT SAVES LIVES! Members of the community who have not yet received the COVID-19 vaccine and would like to receive it can visit one of [facility] vaccine clinics. There are many vaccine clinic locations within the [facility]. For locations and available times, please visit www.[email or web address].[email or web address] It is important to note that some COVID mobile vaccine clinics are held outdoors and may be canceled in rainy or stormy conditions. To learn more about pediatric vaccinations (ages 5-11), we invite you to visit the [facility] webpage. [email or web address]/[email or web address] learn more about the COVID-19 vaccine, we invite you to visit the CDC website for a list of frequently asked questions. https://www.cdc.gov/coronavirus/2019-ncov/vaccines/faq.html [facility] [employer] Patient Portal Access Instructions: Stay connected with your healthcare team and access your personal medical information anytime with the [facility] [employer] Patient Portal. If you would like a full copy of your medical records please contact the [facility] Medical Records Department Thursday through Thursday between 8a.m. and 4:30p.m. Please follow the directions below to access the portal: 1.Access the email account you provided upon registration to the [facility].2.Look for an invitation email from [facility].3.Open the email and access the invitation link: Accept Invitation to [employer]4.Fill in the required العلي to create your account. Sign into [email or web address] with your username and password that you [...] you will allow to register on the [facility] [employer] Patient Portal for access to your information. You can also access the [facility] [employer] Patient Portal on the [employer]. Simply click on "Health Records" under "HealthDaMetaSolv" and then click on the [facility] logo. HOW TO SAFELY DISPOSE OF PRESCRIPTION [...] Call your local pharmacy or go to [email or web address] to find one close to you.3.Make use of household items: Use cat litter or old coffee grounds to dispose medications if other options arenot available. Mix your drugs with these household products, seal them in an airtight container andthrow it into the garbage. Call [facility]: [phone] to be sure your drugs can be [...] aware that I should contact my doctor. 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: Date/Time: Relationship to Patient: Witness Name/Signature: Date/Time: [facility]08-28-2023 Note ORIGINAL EXAMINATION: CT OF THE [...] 11/17/2022 4:26:20 PM Ordering Provider: [facility]08-18-2023 Miscellaneous Notes* Telephone Encounter - Senia Phillips [facility] - 11/07/2022 3:22 PM EDT [facility] Clinic Anticoagulation Episode Summary Anticoagulation Care Providers Provider Role Specialty Phone number Stas Mora MD Referring Family Medicine [phone] Roby Flores is a 87 year old [...] ALLERGIES No Known Allergies Indication for Warfarin: jail current use of anticoagulant Paroxysmal atrial fibrillation (hcc) Anticoagulation Episode Summary Current INR goal: 2.0-3.0 Assessment: INR result of 2.2 is therapeutic Plan: Current Warfarin Dosing As of 11/07/2022 Full warfarin instructions: 2.5 mg every day Sent Xhale message Advised patient to continue current weekly dose as noted above Next lab INR check scheduled on 11/21/2022 Senia Phillips RPh Clinical Pharmacist, Pharmacy Anticoagulation Clinic Pharmacy Anticoagulation Clinic Pager: [phone]. documented in this encounterMercer County Community Hospital08-11-2023 Miscellaneous Notes* Telephone Encounter - Senia Phillips RPh - 10/31/2022 2:29 PM EDT Patient due to test INR today. Will continue to monitor for results. Senia Phillips RPh documented in this encounterMercer County Community Hospital08-04-2023 Miscellaneous Notes* Telephone Encounter - Senia Phillips RPh - 10/24/2022 3:13 PM EDT [facility] Antico[facility] Clinic Anticoagulation Episode Summary Anticoagulation Care Providers Provider Role Specialty Phone number Stas Mora MD Referring Family Medicine [phone] Roby Flores is a 87 year old [...] ALLERGIES No Known Allergies Indication for Warfarin: 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 Paroxysmal atrial fibrillation (hcc) Anticoagulation Episode Summary Current INR goal: 2.0-3.0 Assessment: INR result of 2.5 is therapeutic Plan: Current Warfarin Dosing As of 10/24/2022 Full warfarin instructions: 2.5 mg every day Sent Xhale message Advised patient to decrease total weekly regimen to better reflect overall dose given past few weeks Next lab INR check scheduled on 10/31/2022 Senia Phillips RPh Clinical Pharmacist, Pharmacy Anticoagulation Clinic Pharmacy Anticoagulation Clinic Pager: [phone]. documented in this encounterMercer County Community Hospital07-28-2023 Miscellaneous Notes* Telephone Encounter - Jason [...] Anticoagulation TE call from today by the [facility]tico[facility]. They spoke with pt at [phone] and gave pt instructions on what to do. Halina Castelan RN documented in this encounterMercer County Community Hospital07-28-2023 Miscellaneous Notes* Telephone Encounter - Yomi Wills [facility] - 10/17/2022 3:43 PM EDT [facility] Anticoagulation Clinic Anticoagulation Episode Summary Anticoagulation Care Providers Provider Role Specialty Phone number Stas Mora MD Referring Family Medicine [phone] Roby Flores is a 87 year old [...] ALLERGIES No Known Allergies Indication for Warfarin: 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 Paroxysmal atrial fibrillation [...] Patient denies need for refills. Yomi Wills [facility] Clinical Pharmacist, Pharmacy Anticoagulation Clinic Pharmacy Anticoagulation Clinic Pager: [phone]. documented in this encounterMercer County Community Hospital07-07-2023 Miscellaneous Notes* Telephone Encounter - Jeimy Duong RPh - 09/26/2022 2:11 PM EDT [facility] Amb[facility] Anticoagulation Clinic Anticoagulation Episode Summary Anticoagulation Care Providers Provider Role Specialty Phone number Stas Mora MD Referring Family Medicine [phone] Roby Flores is a 87 year old [...] Pharmacy Anticoagulation Clinic Pharmacy Anticoagulation Clinic Pager: [phone]. documented in this encounterMercer County Community Hospital06-23-2023 Miscellaneous Notes* Telephone Encounter - Jeimy Duong RPh - 09/12/2022 2:50 PM EDT [facility] Anticoagulation Episode Summary Anticoagulation Care Providers Provider Role Specialty Phone number Stas Mora MD Referring Family Medicine [phone] Roby Flores is a 87 year old [...] accidental over dosage, changes in warfarin tablet color/shape/collections representative, eating less green vegetables, recent illness/fever/nausea/vomiting/diarrhea, increased [...] Pharmacy Anticoagulation Clinic Pharmacy Anticoagulation Clinic Pager: [phone]. documented in this encounterMercer County Community Hospital06-06-2023 Instructions* Patient Instructions* Mrata Palacio Ky - 08/26/2022 1:36 PM EDT Please check your medications when you get home and make sure that your medications match our list. documented in this encounterMercer County Community Hospital06-06-2023 History of Present illness Narrative* Stas Mora MD - 08/26/2022 1:20 PM EDT Medical B eligibilty date 1999 Date of last exam 09/05/2021 PAST MEDICAL HISTORY Diagnosis Date Coronary atherosclerosis of unspecified type of vessel, bill moore's slough or graft Coronary artery disease Other and [...] Past Histories independently gathered by the clinical it technical support specialist and the remaining scribed note accurately describes my personal service to the patient. Stas Mora MD The documentation for this note was completed by Marta Palacio Ma acting as scribe for Stas Mora MD. August 26, 2022 1:17 PM. Marta Palacio Ma documented in this encounterMercer County Community Hospital06-02-2023 Miscellaneous Notes* Telephone Encounter - Senia Phillips RPh - 08/22/2022 2:50 PM EDT [facility] Anticoagulation Clinic Anticoagulation Episode Summary Anticoagulation Care Providers Provider Role Specialty Phone number Stas Mora MD Referring Family Medicine [phone] Roby Flores is a 87 year old [...] ALLERGIES No Known Allergies Indication for Warfarin: 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 Paroxysmal atrial fibrillation (hcc) Anticoagulation Episode Summary Current INR goal: 2.0-3.0 Assessment: INR result of 2.4 is therapeutic Plan: Current Warfarin Dosing As of 08/22/2022 Full warfarin instructions: 3.75 mg every Fri; 2.5 mg all other days Sent [employer] message Advised patient to continue current weekly dose as noted above Next lab INR check scheduled on 08/29/2022 Senia Phillips RPh Clinical Pharmacist, Pharmacy Anticoagulation Clinic Pharmacy Anticoagulation Clinic Pager: [phone]. documented in this encounterMercer County Community Hospital04-28-2023 Miscellaneous Notes* Telephone Encounter - Senia Phillips RPh - 07/18/2022 3:29 PM EDT [facility] Ambulatory [facility]acy Anticoagulation Clinic Anticoagulation Episode Summary Anticoagulation Care Providers Provider Role Specialty Phone number Stas Mora MD Referring Family Medicine [phone] Roby Flores is a 86 year old [...] ALLERGIES No Known Allergies Indication for Warfarin: 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 Paroxysmal atrial fibrillation (hcc) Anticoagulation Episode Summary Current INR goal: 2.0-3.0 Assessment: INR result of 2.1 is therapeutic Plan: Current Warfarin Dosing As of 07/18/2022 Full warfarin instructions: 2.5 mg every day Sent Xhale message Advised patient to continue current weekly dose as noted above Next lab INR check scheduled on 08/01/2022 Senia Phillips RPh Clinical Pharmacist, Pharmacy Anticoagulation Clinic Pharmacy Anticoagulation Clinic Pager: [phone]. documented in this encounterMercer County Community Hospital04-14-2023 Miscellaneous Notes* Telephone Encounter - Lety Gandara, [facility] - 07/04/2022 3:46 PM EDT [facility] Clinic Anticoagulation Episode Summary Anticoagulation Care Providers Provider Role Specialty Phone number Stas Mora MD Referring Family Medicine [phone] Roby Flores is a 86 year old [...] ALLERGIES No Known Allergies Indication for Warfarin: 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 Paroxysmal atrial fibrillation [...] Pharmacy Anticoagulation Clinic Pharmacy Anticoagulation Clinic Pager: [phone]. documented in this encounterMercer County Community Hospital04-03-2023 Miscellaneous Notes* Telephone Encounter - Elvis Kearney APRN.CNP - 06/23/2022 10:17 AM EDT The following approved medication requests have been transmitted electronically. Requested Prescriptions Pending Prescriptions Disp Refills warfarin (COUMADIN) 2.5 mg tablet [Pharmacy Med Name: WARFARIN SODIUM 2.5 MG TABLET] 135 tablet 3 Sig: TAKE 5 MG EVERY MON, DIXIE 2.5 MG ALL OTHER DAYS Elvis Kearney APRN.CNP documented in this encounterMercer County Community Hospital03-31-2023 Miscellaneous Notes* Telephone Encounter - Senia Phillips RPh - 06/20/2022 4:46 PM EDT [facility] Anticoagulation Clinic Anticoagulation Episode Summary Anticoagulation Care Providers Provider Role Specialty Phone number Stas Mora MD Referring Family Medicine [phone] Roby Flores is a 86 year old [...] ALLERGIES No Known Allergies Indication for Warfarin: 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 Paroxysmal atrial fibrillation [...] Pharmacy Anticoagulation Clinic Pharmacy Anticoagulation Clinic Pager: [phone]. documented in this encounterMercer County Community Hospital03-17-2023 Miscellaneous Notes* Telephone Encounter - Senia Phillips RPh - 06/06/2022 4:18 PM EDT [facility] Anticoagulation Clinic Anticoagulation Episode Summary Anticoagulation Care Providers Provider Role Specialty Phone number Stas Mora MD Referring Family Medicine [phone] Roby Flores is a 86 year old [...] ALLERGIES No Known Allergies Indication for Warfarin: jail current use of anticoagulant Paroxysmal atrial fibrillation (hcc) Anticoagulation Episode Summary Current INR goal: 2.0-3.0 Assessment: INR result of 2.6 is therapeutic Plan: Current Warfarin Dosing As of 06/06/2022 Full warfarin instructions: 2.5 mg every day Sent Xhale message Advised patient to continue current weekly dose as noted above Next lab INR check scheduled on 06/20/2022 Senia Phillips RPh Clinical Pharmacist, Pharmacy Anticoagulation Clinic Pharmacy Anticoagulation Clinic Pager: [phone]. documented in this encounterMercer County Community Hospital03-10-2023 Miscellaneous Notes* Telephone Encounter - Neeru Rice LPN - 05/30/2022 3:02 PM EST Pharmacists manage INR documented in this encounterMercer County Community Hospital03-02-2023 Miscellaneous Notes* Telephone Encounter - Halina [...] has any questions. Thank you. Jenna Fitzpatrick APRN.HEDGE FUND ACCOUNTANT documented in this encounterMercer County Community Hospital03-01-2023 Miscellaneous Notes* Telephone Encounter - Judy [...] hip/leg 10. : na Protocols used: Hip Bdun-MINWJ-YE, Hip Rshknw-JGIKP-RJ documented in this encounterMercer County Community Hospital03-01-2023 Miscellaneous Notes* Telephone Encounter - Fani Grace RN - 05/21/2022 12:22 PM EST Patient disconnected during transferred, called multiple time with no answer. documented in this encounterMercer County Community Hospital02-27-2023 Miscellaneous Notes* Telephone Encounter - Paige [...] instructions. Franca Cohen LPN documented in this encounterMercer County Community Hospital02-24-2023 Miscellaneous Notes* Telephone Encounter - Senia Phillips RPh - 05/16/2022 5:10 PM EST Patient due to test INR today. Will continue to monitor for results. Senia Phillips RPh documented in this encounterMercer County Community Hospital02-10-2023 Miscellaneous Notes* Telephone Encounter - Senia Phillips RPh - 05/02/2022 3:06 PM EST [facility] Anticoagulation Episode Summary Anticoagulation Care Providers Provider Role Specialty Phone number Stas Mora MD Referring Family Medicine [phone] Roby Flores is a 86 year old year old male patient being evaluated today for a Telemanagement visit. Patient is currently on the following anticoagulant(s) Warfarin. Labs PT INR (no units) Date Value 05/15/2021 2.3 04/17/2021 1.9 03/13/2021 Test sent to [facility]. INR (no units) Date Value 05/02/2022 2.1 [...] ALLERGIES No Known Allergies Indication for Warfarin: jail current use of anticoagulant Paroxysmal atrial fibrillation (hcc) Anticoagulation Episode Summary Current INR goal: 2.0-3.0 Assessment: INR result of 2.1 is therapeutic Plan: Current Warfarin Dosing As of 05/02/2022 Full warfarin instructions: 2.5 mg every day Sent Xhale message Advised patient to continue current weekly dose as noted above Next lab INR check scheduled on 05/16/2022 Senia Phillips RPh Clinical Pharmacist, Pharmacy Anticoagulation Clinic Pharmacy Anticoagulation Clinic Pager: [phone]. documented in this encounterMercer County Community Hospital01-27-2023 Miscellaneous Notes* Telephone Encounter - Senia Phillips RPh - 04/18/2022 4:25 PM EST [facility] Antico[facility] Clinic Anticoagulation Episode Summary Anticoagulation Care Providers Provider Role Specialty Phone number Stas Mora MD Referring Family Medicine [phone] Roby Flores is a 86 year old year old male patient being evaluated today for a Telemanagement visit. Patient is currently on the following anticoagulant(s) Warfarin. Labs PT INR (no units) Date Value 05/15/2021 2.3 04/17/2021 1.9 03/13/2021 Test sent to [facility]. INR (no units) Date Value 04/18/2022 2.4 [...] ALLERGIES No Known Allergies Indication for Warfarin: jail current use of anticoagulant Paroxysmal atrial fibrillation (hcc) Anticoagulation Episode Summary Current INR goal: 2.0-3.0 Assessment: INR result of 2.4 is therapeutic Plan: Current Warfarin Dosing As of 04/18/2022 Full warfarin instructions: 2.5 mg every day; Starting 04/18/2022 Sent Xhale message Advised patient to continue current weekly dose as noted above Next lab INR check scheduled on 05/02/2022 Senia Phillips riya Clinical Pharmacist, Pharmacy Anticoagulation Clinic Pharmacy Anticoagulation Clinic Pager: [phone]. documented in this encounterMercer County Community Hospital01-13-2023 Miscellaneous Notes* Telephone Encounter - Elise Paredes [facility] - 04/04/2022 4:09 PM EST [facility] Anticoagulation Episode Summary Anticoagulation Care Providers Provider Role Specialty Phone number Stas Mora MD Referring Family Medicine [phone] Roby Flores is a 86 year old year old male patient being evaluated today for a Lab INR. Patient is currently on the following anticoagulant(s) Warfarin. Labs PT INR (no units) Date Value 05/15/2021 2.3 04/17/2021 1.9 03/13/2021 Test sent to [facility]. INR (no units) Date Value 04/04/2022 3.3 [...] ALLERGIES No Known Allergies Indication for Warfarin: jail current use of anticoagulant Paroxysmal atrial fibrillation [...] getting labs every 2 weeks Elise Paredes RP Clinical Pharmacist, Pharmacy Anticoagulation Clinic Pharmacy Anticoagulation Clinic Pager: [phone]. documented in this encounterMercer County Community Hospital01-09-2023 Miscellaneous Notes* Telephone Encounter - Rosie Cruz Ma - 03/31/2022 5:12 PM EST Office [facility] and Imm. PerPCP okay to fax back requested records. Faxed back to [facility] at F#: [phone]. Rosie Cruz Ma documented in this encounterMercer County Community Hospital12-30-2022 Miscellaneous Notes* Telephone Encounter - Carmelina Cruz RPh - 03/21/2022 4:05 PM EST [facility] Anticoagulation Episode Summary Anticoagulation Care Providers Provider Role Specialty Phone number Stas Mora MD Referring Family Medicine [phone] Roby Flores is a 86 year old year old male patient being evaluated today for a Telemanagement visit. Patient is currently on the following anticoagulant(s) Warfarin. Labs PT INR (no units) Date Value 05/15/2021 2.3 04/17/2021 1.9 03/13/2021 Test sent to [facility]. INR (no units) Date Value 03/21/2022 2.9 [...] ALLERGIES No Known Allergies Indication for Warfarin: jail current use of anticoagulant Paroxysmal atrial fibrillation (hcc) Anticoagulation Episode Summary Current INR goal: 2.0-3.0 Assessment: INR result of 2.9 is therapeutic Plan: Current Warfarin Dosing As of 03/21/2022 Full warfarin instructions: 2.5 mg every day; Starting 03/21/2022 Sent Xhale message Advised patient to continue current weekly dose as noted above Next home INR check scheduled on 04/04/2022 Carmelina Cruz RPh Clinical Pharmacist, Pharmacy Anticoagulation Clinic Pharmacy Anticoagulation Clinic Pager: [phone]. * Telephone Encounter - Carmelina Cruz RPh - 03/21/2022 3:12 PM EST Patient due to test INR today. Will continue to monitor for results. Carmelina Cruz RPh documented in this encounterMercer County Community Hospital12-02-2022 Miscellaneous Notes* Telephone Encounter - Oliva [...] whatever he wanted to. documented in this encounterMercer County Community Hospital10-31-2022 Miscellaneous Notes* Telephone Encounter - Paige Hickman RP - 01/20/2022 3:55 PM EDT [facility] Clinic Anticoagulation Episode Summary Anticoagulation Care Providers Provider Role Specialty Phone number Stas Mora MD Referring Family Medicine [phone] Roby Flores is a 86 year old year old male patient being evaluated today for a Telemanagement visit. Patient is currently on the following anticoagulant(s) Warfarin. Labs PT INR (no units) Date Value 05/15/2021 2.3 04/17/2021 1.9 03/13/2021 Test sent to [facility]. INR (no units) Date Value 01/20/2022 1.7 [...] instructed to call [facility] at [phone] with any questionsor concerns. Paige Hickman [facility] Clinical Pharmacist, Pharmacy Anticoagulation Clinic Pharmacy [facility] Pager: [phone] documented in this encounterMercer County Community Hospital10-28-2022 Miscellaneous Notes* Telephone Encounter - Senia [...] the providers message. Sent information as a fastDovet message as well. Elana Valdes RN * [...] to contact patient with no answer at [phone]. Current dose of coumadin is: 2.5 mg every day . Previous INR (date and result): 01/03/22 2.4 documented in this encounterMercer County Community Hospital10-24-2022 Miscellaneous Notes* Telephone Encounter - Jenna [...] advise. López Mckenna LPN documented in this encounterMercer County Community Hospital10-14-2022 Miscellaneous Notes* Telephone Encounter - Senia Phillips [facility] - 01/03/2022 4:11 PM EDT [facility] Anticoagulation Episode Summary Anticoagulation Care Providers Provider Role Specialty Phone number Stas Mora MD Referring Family Medicine [phone] Roby Flores is a 86 year old year old male patient being evaluated today for a Telemanagement visit. Patient is currently on the following anticoagulant(s) Warfarin. Labs PT INR (no units) Date Value 05/15/2021 2.3 04/17/2021 1.9 03/13/2021 Test sent to [facility]. INR (no units) Date Value 01/03/2022 2.4 [...] ALLERGIES No Known Allergies Indication for Warfarin: 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 Paroxysmal atrial fibrillation (hcc) Anticoagulation Episode Summary Current INR goal: 2.0-3.0 Assessment: INR result of 2.4 is therapeutic Plan: Current Warfarin Dosing As of 01/03/2022 Full warfarin instructions: 2.5 mg every day Sent Xhale message Advised patient to continue current weekly dose as noted above Next lab INR check scheduled on 01/17/2022 Senia Phillips RPh Clinical Pharmacist, Pharmacy Anticoagulation Clinic Pharmacy Anticoagulation Clinic Pager: [phone]. documented in this encounterMercer County Community Hospital10-14-2022 Miscellaneous Notes* Telephone Encounter - Marta Palacio Ma - 01/03/2022 10:49 AM EDT Pt notified of results via [employer]. Marta Palacio Ma * Telephone Encounter - Stas Mora MD - 01/02/2022 6:07 PM EDT Please notify patient that his thyroid ultrasound looks OK, the nodules are all small, appear normal, and do not need any further evaluation pr follow up. Stas Mora MD documented in this encounterMercer County Community Hospital10-06-2022 History of Present illness Narrative* Stas Mora MD - 12/26/2021 11:20 AM EDT Chief Complaint Patient presents with: [facility] F[facility]U [facility] Roby Flores is a 86 year [...] about 1-2 hours. Pt was admitted to [facility] ER 12/21/21 with stroke sx however [...] in the last year. Below copied from [facility] HPI History of Present Illness Chief Complaint: [...] realized that he was in the backyard [facility] when she went to check on him [...] extremities. 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 Dorsi and plantar flexion intact. [...] Chronic anticoagulation: Status: Acute Code(s): Z79.01 - mechanical insulator (current) 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 Medications at Discharge [...] symptoms resolved. Hospital Course: 1. TIA/paroxysmal A. [id number] male presented with right-sided weakness and aphasia, [...] Coronary atherosclerosis of unspecified type of vessel, bill moore's slough or graft Coronary artery disease Other and [...] 12/06/2024 ADVANCE DIRECTIVE DISCUSSION Completed Data reviewed [facility] reports from 10/21/21-10/22/21 ASSESSMENT/PLAN: 1. Hospital [...] unspecified vessel or lesion type, unspecified whether bill moore's slough or transplanted heart - ICD9: 414.00, ICD10: I25.10 Continue current medications. Follow up in Dec as scheduled with fasting labs prior. I agree with the Chief Complaint, ROS, and Past Histories independently gathered by the clinical it technical support specialist and the remaining scribed note accurately describes [...] AM. Marta Palacio Ma documented in this encounterMercer County Community Hospital09-30-2022 Miscellaneous Notes* Telephone Encounter - Senia Phillips [facility] - 12/20/2021 4:39 PM EDT [facility] Anticoagulation Episode Summary Anticoagulation Care Providers Provider Role Specialty Phone number Stas Mora MD Referring Family Medicine [phone] Roby Flores is a 86 year old year old male patient being evaluated today for a Telemanagement visit. Patient is currently on the following anticoagulant(s) Warfarin. Labs PT INR (no units) Date Value 05/15/2021 2.3 04/17/2021 1.9 03/13/2021 Test sent to [facility]. INR (no units) Date Value 12/20/2021 2.1 [...] ALLERGIES No Known Allergies Indication for Warfarin: jail current use of anticoagulant Paroxysmal atrial fibrillation (hcc) Anticoagulation Episode Summary Current INR goal: 2.0-3.0 Assessment: INR result of 2.1 is therapeutic Plan: Current Warfarin Dosing As of 12/20/2021 Full warfarin instructions: 2.5 mg every day Sent Xhale message Advised patient to continue current weekly dose as noted above Next lab INR check scheduled on 01/03/2022 Senia Phillips RPh Clinical Pharmacist, Pharmacy Anticoagulation Clinic Pharmacy Antico[facility] Clinic Pager: [phone]. documented in this encounterMercer County Community Hospital09-16-2022 Miscellaneous Notes* Telephone Encounter - Senia Phillips RPh - 12/06/2021 4:29 PM EDT [facility] Anticoagulation Episode Summary Anticoagulation Care Providers Provider Role Specialty Phone number Stas Mora MD Referring [facility] [phone] Roby Flores is a 86 year old year old male patient being evaluated today for a Telemanagement visit. Patient is currently on the following anticoagulant(s) Warfarin. Labs PT INR (no units) Date Value 05/15/2021 2.3 04/17/2021 1.9 03/13/2021 Test sent to [facility]. INR (no units) Date Value 12/06/2021 3.8 [...] ALLERGIES No Known Allergies Indication for Warfarin: jail current use of anticoagulant Paroxysmal atrial fibrillation [...] Pharmacy Anticoagulation Clinic Pharmacy Anticoagulation Clinic Pager: [phone]. documented in this encounterMercer County Community Hospital09-02-2022 Miscellaneous Notes* Telephone Encounter - Janice Huang RPh - 11/22/2021 5:17 PM EDT [facility] Anticoagulation Episode Summary Anticoagulation Care Providers Provider Role Specialty Phone number Stas Mora MD Referring [facility] [phone] Roby Flores is a 86 year old year old male patient being evaluated today for a Telemanagement visit. Patient is currently on the following anticoagulant(s) Warfarin. Labs PT INR (no units) Date Value 05/15/2021 2.3 04/17/2021 1.9 03/13/2021 Test sent to [facility]. INR (no units) Date Value 11/22/2021 2.4 [...] ALLERGIES No Known Allergies Indication for Warfarin: jail current use of anticoagulant Paroxysmal atrial fibrillation [...] Advised pt to Call Coumadin Clinic at [phone] to confirm dosing and follow-up Janice Huang RPh Clinical Pharmacist, Pharmacy Anticoagulation Clinic Pharmacy Anticoagulation Clinic Pager: [phone]. documented in this encounterMercer County Community Hospital08-19-2022 Miscellaneous Notes* Telephone Encounter - Senia Phillips RPh - 11/08/2021 5:01 PM EDT [facility] Anticoagulation Episode Summary Anticoagulation Care Providers Provider Role Specialty Phone number Stas Mora MD Referring [facility] [phone] Roby Flores is a 86 year old year old male patient being evaluated today for a Telemanagement visit. Patient is currently on the following anticoagulant(s) Warfarin. Labs PT INR (no units) Date Value 05/15/2021 2.3 04/17/2021 1.9 03/13/2021 Test sent to [facility]. INR (no units) Date Value 11/08/2021 2.8 [...] ALLERGIES No Known Allergies Indication for Warfarin: 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 Paroxysmal atrial fibrillation (hcc) Anticoagulation Episode Summary Current INR goal: 2.0-3.0 Assessment: INR result of 2.8 is therapeutic Plan: Current Warfarin Dosing As of 11/08/2021 Full warfarin instructions: 2.5 mg every day Sent Xhale message Advised patient to continue current weekly dose as noted above Next lab INR check scheduled on 11/22/2021 Senia Phillips RPh Clinical Pharmacist, Pharmacy Anticoagulation Clinic Pharmacy Anticoagulation Clinic Pager: [phone]. documented in this encounterMercer County Community Hospital08-05-2022 Miscellaneous Notes* Telephone Encounter - Janice Huang RPh - 10/25/2021 4:16 PM EDT [facility] Anticoagulation Episode Summary Anticoagulation Care Providers Provider Role Specialty Phone number Stas Mora MD Referring [facility] [phone] Roby Flores is a 86 year old year old male patient being evaluated today for a Telemanagement visit. Patient is currently on the following anticoagulant(s) Warfarin. Labs PT INR (no units) Date Value 05/15/2021 2.3 04/17/2021 1.9 03/13/2021 Test sent to [facility]. INR (no units) Date Value 10/25/2021 4.1 [...] ALLERGIES No Known Allergies Indication for Warfarin: jail current use of anticoagulant Paroxysmal atrial fibrillation [...] Pharmacy Anticoagulation Clinic Pharmacy Anticoagulation Clinic Pager: [phone] . documented in this encounterMercer County Community Hospital07-08-2022 Miscellaneous Notes* Telephone Encounter - Elana Campbell (Lining Presser) - 09/27/2021 4:50 PM EDT PATIENT CALL Patient called call center regarding results. Patient called and stated he had his INR checked today (09/27) and it was 2.3. Patient can be called at [phone] with any questions or sent [facility] message if result is within range. PT INR (no units) Date Value 05/15/2021 2.3 04/17/2021 1.9 03/13/2021 Test sent to [facility]. INR (no units) Date Value 09/27/2021 2.3 09/13/2021 2.7 08/30/2021 2.1 Elana Campbell (Lining Presser) * Telephone Encounter - Yomi Wills RP - 09/27/2021 6:28 AM EDT Patient due to test INR today. Will continue to monitor for results. Yomi Wills RP documented in this encounterMercer County Community Hospital06-24-2022 Miscellaneous Notes* Telephone Encounter - Senia Phillips [facility] - 09/13/2021 4:11 PM EDT [facility] Anticoagulation Episode Summary Anticoagulation Care Providers Provider Role Specialty Phone number Stas Mora MD Referring [facility] [phone] Roby Flores is a 86 year old year old male patient being evaluated today for a Telemanagement visit. Patient is currently on the following anticoagulant(s) Warfarin. Labs PT INR (no units) Date Value 05/15/2021 2.3 04/17/2021 1.9 03/13/2021 Test sent to [facility]. INR (no units) Date Value 09/13/2021 2.7 [...] ALLERGIES No Known Allergies Indication for Warfarin: 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 Paroxysmal atrial fibrillation (hcc) Anticoagulation Episode Summary Current INR goal: 2.0-3.0 Assessment: INR result of 2.7 is therapeutic Plan: Sent Xhale message Advised patient to continue current weekly dose Next lab INR check scheduled on 09/27/2021 Senia Phillips RPh Clinical Pharmacist, Pharmacy Anticoagulation Clinic Pharmacy Anticoagulation Clinic Pager: [phone] . documented in this encounterMercer County Community Hospital06-16-2022 History of Present illness Narrative* Stas Mora MD - 09/05/2021 11:20 AM EDT Medical B eligibilty date 1999 Date of last exam 08/28/2020 PAST MEDICAL HISTORY Diagnosis Date Coronary atherosclerosis of unspecified type of vessel, bill moore's slough or graft Coronary artery disease Other and [...] his POA. I am willing to follow [place] advanced directives. Depression screen He in the [...] to remember the following three words: Banana, Clover and Chair Visuospatial/Executive Functioning: Clock drawin/2 (Normal [...] Past Histories independently gathered by the clinical it technical support specialist and the remaining scribed note accurately describes my personal service to the patient. Stas Mora MD The documentation for this note was completed by Rosie Cruz Ma acting as scribe for Stas Mora MD. September 05, 2021 11:33 AM. Rosie Cruz Ma documented in this encounterMercer County Community Hospital06-10-2022 Miscellaneous Notes* Telephone Encounter - Senia Alan [facility] - 08/30/2021 5:10 PM EDT [facility] Anticoagulation Episode Summary Anticoagulation Care Providers Provider Role Specialty Phone number Stas Mora MD Referring [facility] [phone] Roby Flores is a 86 year old year old male patient being evaluated today for a Telemanagement visit. Patient is currently on the following anticoagulant(s) Warfarin. Labs PT INR (no units) Date Value 05/15/2021 2.3 04/17/2021 1.9 03/13/2021 Test sent to [facility]. INR (no units) Date Value 08/30/2021 2.1 [...] ALLERGIES No Known Allergies Indication for Warfarin: jail current use of anticoagulant Paroxysmal atrial fibrillation (hcc) Anticoagulation Episode Summary Current INR goal: 2.0-3.0 Assessment: INR result of 2.1 is therapeutic Plan: Sent Xhale message Advised patient to continue current weekly dose Next lab INR check scheduled on 09/13/2021 Senia Phillips RPh Clinical Pharmacist, Pharmacy Anticoagulation Clinic Pharmacy Anticoagulation Clinic Pager: [phone] . documented in this encounterMercer County Community Hospital06-10-2022 Miscellaneous Notes* Telephone Encounter - Jenna Fitzpatrick APRN.CNP - 08/30/2021 8:56 AM EDT Needs order for PT/INR, order signed. Jenna Fitzpatrick APRN.CNP documented in this encounterMercer County Community Hospital05-27-2022 Miscellaneous Notes* Telephone Encounter - Rosie Cruz Ma - 08/16/2021 2:18 PM EDT INR has been reviewed in another encounter. Rosie Cruz Ma documented in this encounterMercer County Community Hospital05-13-2022 Miscellaneous Notes* Telephone Encounter - Senia Phillips RPh - 08/02/2021 4:11 PM EDT [facility] Anticoagulation Episode Summary Anticoagulation Care Providers Provider Role Specialty Phone number Stas Mora MD Referring [facility] [phone] Roby Flores is a 85 year old year old male patient being evaluated today for a Telemanagement visit. Patient is currently on the following anticoagulant(s) Warfarin. Labs PT INR (no units) Date Value 05/15/2021 2.3 04/17/2021 1.9 03/13/2021 Test sent to [facility]. INR (no units) Date Value 08/02/2021 3.2 [...] ALLERGIES No Known Allergies Indication for Warfarin: 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 Paroxysmal atrial fibrillation [...] Pharmacy Anticoagulation Clinic Pharmacy Anticoagulation Clinic Pager: [phone] . documented in this encounterMercer County Community Hospital04-27-2022 Miscellaneous Notes* Telephone Encounter - Rosie [...] months Stas Mora MD documented in this encounterMercer County Community Hospital04-25-2022 Miscellaneous Notes* Telephone Encounter - Elvis Kearney APRN.CNP - 07/15/2021 12:39 PM EDT The following approved medication requests have been transmitted electronically. Pending Prescriptions Disp Refills WARFARIN 2.5 MG TABLET 135 tablet 3 Sig: TAKE 5 MG EVERY MON, DIXIE 2.5 MG ALL OTHER DAYS MESFIN: No Elvis Kearney APRN.SHEMAR documented in this encounterMercer County Community Hospital04-18-2022 History of Present illness Narrative* Stas [...] SOB. No swelling in feet orankles. 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 Taking Fosinopril 10 mg daily. Lipid: Taking [...] Coronary atherosclerosis of unspecified type of vessel, bill moore's slough or graft Coronary artery disease Other and [...] unspecified vessel or lesion type, unspecified whether bill moore's slough or transplanted heart - ICD9: 414.00, ICD10: [...] Past Histories independently gathered by the clinical it technical support specialist and the remaining scribed note accurately describes [...] AM. Marta Palacio Ma documented in this encounterMercer County Community Hospital04-13-2022 Miscellaneous Notes* Telephone Encounter - Coretta Jalloh, [facility] - 07/03/2021 3:40 PM EDT [facility] Anticoagulation Episode Summary Anticoagulation Care Providers Provider Role Specialty Phone number Stas Mora MD Referring [facility] [phone] Roby Flores is a 85 year old year old male patient being evaluated today for a Lab INR. Patient is currently on the following anticoagulant(s) Warfarin. Labs PT INR (no units) Date Value 05/15/2021 2.3 04/17/2021 1.9 03/13/2021 Test sent to [facility]. INR (no units) Date Value 07/03/2021 4.5 06/12/2021 3.5 Creatinine (mg/dL) Date Value 03/13/2021 0.80 08/28/2020 0.83 Bilirubin, Total (mg/dL) Date Value 03/13/2021 0.5 ALT (U/L) Date Value 03/13/2021 24 AST (U/L) Date Value 03/13/2021 24 CrCl cannot be calculated (Unknown ideal weight.). ALLERGIES No Known Allergies Indication for Warfarin: 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 Paroxysmal atrial fibrillation [...] Pharmacy Anticoagulation Clinic Pharmacy Anticoagulation Clinic Pager: [phone] . * Telephone Encounter - Marta Palacio Ma - 07/03/2021 3:05 PM EDT INR 4.5. Results routed to pharmacist who Handles pt coumadin. Marta Palacio Ma documented in this encounterMercer County Community Hospital03-23-2022 Miscellaneous Notes* Telephone Encounter - Coretta Jalloh RPh - 06/12/2021 3:20 PM EDT [facility] Anticoagulation Episode Summary Anticoagulation Care Providers Provider Role Specialty Phone number Stas Mora MD Referring [facility] [phone] Roby Flores is a 85 year old year old male patient being evaluated today for a Lab INR. Patient is currently on the following anticoagulant(s) Warfarin. Labs PT INR (no units) Date Value 05/15/2021 2.3 04/17/2021 1.9 03/13/2021 Test sent to [facility]. INR (no units) Date Value 06/12/2021 3.5 Creatinine (mg/dL) Date Value 03/13/2021 0.80 08/28/2020 0.83 Bilirubin, Total (mg/dL) Date Value 03/13/2021 0.5 ALT (U/L) Date Value 03/13/2021 24 AST (U/L) Date Value 03/13/2021 24 CrCl cannot be calculated (Unknown ideal weight.). ALLERGIES No Known Allergies Indication for Warfarin: 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 Paroxysmal atrial fibrillation (hcc) Anticoagulation Episode Summary Current INR goal: 2.0-3.0 Assessment: INR result of 3.5 is SUPRAtherapeutic due to: No obvious cause Plan: Called and spoke to patient/caregiver Advised patient to hold 1 dose then continue current regimen Next lab INR check scheduled on 07/03 in [place]. Patient verbalizes understanding of the plan. Patient denies need for refills. Coretta Jalloh RPh Clinical Pharmacist, Pharmacy Anticoagulation Clinic Pharmacy Anticoagulation Clinic Pager: [phone] . * Telephone Encounter - Rosie Cruz Ma - 06/12/2021 3:08 PM EDT Pt's INR results have finalized. Routing to pharm to review and advise. Rosie Cruz Ma documented in this encounterMercer County Community Hospital12-21-2020 History of Present illness Narrative* Hussein [...] 12, 2020 5:01 PM documented in this encounterVanderbilt ClinicDischarge summary Author Inderjit Gillespie [facility] Note Date/Time September 01, 2024 10:2 5am [facility] Medical Records Department [address] [place] [address] Emergency Department Summary 09/01/24 MR#: [id number] Acct: [id number] Name: ROBY FLORES Rep #:[id number] : [...] shoulders elbows and wrist. 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 Neurologically he is awake alert. Answering [...] 87.5 H Lymph % (Auto) 4.8 L [place] % (Auto) 5.7 Eos % (Auto) 1.2 [...] Clarity Clear Urine pH 8.0 Ur Specific Macy 1.010 Urine Protein 15 H Urine Glucose [...] of the left maxillary sinus. Reading Location: [facility]-IR[facility]1 Chest X-Ray 09/01/24 09:25 IMPRESSION: No acute abnormality is seen. Reading Location: [facility] Chest x-ray, 2 views, AP and [...] to thrive Disposition Disposition: Acute Care Hospital [facility] What to do if you have Problems For any increased pain, shortness of breath, bleeding, nausea or vomiting, chestpain, or any unexpected problems, contact your Primary Care Provider. Call [facility] ([phone]) or report to the closest Emergency Room. Call 911 if necessary. 09/01/24 1025 <Electronically signed by Inderjit Gillespie MD> Cosigner Signature (if applicable): CC: Dr. Stas Mora MD ~ Signed [facility] Work Phone: Evaluation + Plan note No data available for this section [facility] Evaluation note* Diagnosis 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- Primary Long-term (current) 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 Paroxysmal atrial fibrillation (HCC) Atrial fibrillation documented in this encounter [facility] Hospital[facility]* Diagnosis jail current use of anticoagulant- Primary Long-term (current) 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 Paroxysmal atrial fibrillation (HCC) Atrial fibrillation documented in this encounter [facility] HospitalEvaluation [facility]* Diagnosis Essential hypertension, benign- Primary Atherosclerosis 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, unspecified vessel or lesion type, unspecified whether bill moore's slough or transplanted heart Paroxysmal atrial fibrillation (HCC) Atrial fibrillation Primary osteoarthritis of both knees Primary localized osteoarthrosis, lower leg documented in this encounter [facility]* Diagnosis Atherosclerosis 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, unspecified vessel or lesion type, unspecified whether bill moore's slough or transplanted heart- Primary Essential hypertension, benign documented in this encounter [facility]* Diagnosis jail current use of anticoagulant- Primary Long-term (current) 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 Paroxysmal atrial fibrillation (HCC) Atrial fibrillation [facility]* Diagnosis Elevated INR- Primary Abnormal coagulation profile documented in this encounter [facility] note* Diagnosis 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- Primary Long-term (current) 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 Paroxysmal atrial fibrillation (HCC) Atrial fibrillation documented in this encounter [facility] note* Diagnosis Encounter for Medicare annual wellness exam- Primary Routine general medical examination at a [facility] Paroxysmal atrial fibrillation (HCC) Atrial fibrillation Essential hypertension, benign documented in this encounter [facility]* Diagnosis 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- Primary Long-term (current) 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 Encounter for monitoring Coumadin therapy Encounter for therapeutic drug monitoring documented in this encounter [facility]Eval[facility]iana hospital note* Diagnosis 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- Primary Long-term (current) 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 Paroxysmal atrial fibrillation (HCC) Atrial [facility] Diagnosis 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- Primary Long-term (current) 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 Paroxysmal atrial fibrillation (HCC) Atrial fibrillation documented in this encounter [facility] note* Diagnosis Onset Date Resolution Status Chronic anticoagulation acut e TIA (transient ischemic attack) acute CAD (coronary artery disease) [facility] Work Phone: Evaluation note* Diagnosis Onset Date Resolution Status Chronic anticoagulation acut e Stroke-like symptoms acute TIA (transient ischemic attack) acute CAD (coronary artery disease) [facility] Work Phone: Evaluation note* Diagnosis Hospital discharge follow-up- Primary Other follow-up examination Encounter for immunization Need for other specified prophylactic vaccination against single bacterial disease TIA (transient ischemic attack) Unspecified transient cerebral ischemia Thyroid nodule Nontoxic uninodular goiter Essential hypertension, benign Paroxysmal atrial fibrillation (HCC) Atrial fibrillation Atherosclerosis 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, unspecified vessel or lesion type, unspecified whether [place] or transplanted heart [facility] Diagnosis jail current use of anticoagulant- Primary Long-term (current) 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 Paroxysmal atrial fibrillation (HCC) Atrial fibrillation [facility]* Diagnosis 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- Primary Long-term (current) 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 Paroxysmal atrial fibrillation (HCC) Atrial fibrillation [facility] Diagnosis 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- Primary Long-term (current) 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 Paroxysmal atrial fibrillation (HCC) Atrial [facility] Diagnosis Encounter for Medicare annual wellness exam- Primary Routine general medical examination at a health care facility Paroxysmal atrial fibrillation (HCC) Atrial fibrillation Essential hypertension, benign Hyperlipidemia, unspecified hyperlipidemia type [facility]* Diagnosis 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- Primary Long-term (current) 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 Paroxysmal atrial fibrillation (HCC) Atrial fibrillation [facility] Diagnosis jail current use of anticoagulant- Primary Long-term (current) 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 Paroxysmal atrial fibrillation (HCC) Atrial fibrillation [facility] Diagnosis jail current use of anticoagulant- Primary Long-term (current) 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 Paroxysmal atrial fibrillation (HCC) Atrial fibrillation [facility] Diagnosis 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- Primary Long-term (current) 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 Paroxysmal atrial fibrillation (HCC) Atrial fibrillation [facility] noteNo assessment information availableWSy[facility] Work Phone: Evaluation note* Diagnosis jail current use of anticoagulant- Primary Long-term (current) 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 Paroxysmal atrial fibrillation (HCC) Atrial fibrillation [facility]* Diagnosis Cerebral infarction, unspecified mechanism (HCC)- Primary Generalized weakness Other malaise and fatigue Speech disturbance, unspecified type Hyperlipidemia, unspecified hyperlipidemia type Essential hypertension, benign Paroxysmal atrial fibrillation (HCC) Atrial fibrillation [facility] Diagnosis Cerebral infarction, unspecified mechanism (HCC) [facility] Diagnosis 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- Primary Long-term (current) 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 Paroxysmal atrial fibrillation (HCC) Atrial fibrillation [facility] Diagnosis Essential hypertension, benign- Primary Paroxysmal atrial fibrillation (HCC) Atrial fibrillation Atherosclerosis 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, unspecified vessel or lesion type, unspecified whether [place] or transplanted heart Hyperlipidemia, unspecified hyperlipidemia type History of stroke with 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 Speech disturbance, unspecified type [facility] Diagnosis Abnormal CBC- Primary Other abnormal blood chemistry [facility] Diagnosis 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- Primary Long-term (current) 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 Paroxysmal atrial fibrillation (HCC) [facility]rial [facility] Diagnosis 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- Primary Long-term (current) 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 Paroxysmal atrial fibrillation (HCC) Atrial fibrillation [facility] Diagnosis jail current use of anticoagulant- Primary Long-term (current) 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 Paroxysmal atrial fibrillation (HCC) Atrial fibrillation [facility] Diagnosis 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- Primary Long-term (current) 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 Paroxysmal atrial fibrillation (HCC) Atrial fibrillation [facility] Diagnosis 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, psychotic disturbance, mood disturbance, or anxiety (HCC)- Primary Essential hypertension, benign Paroxysmal atrial fibrillation (HCC) Atrial fibrillation [facility] Diagnosis Edema of both lower legs- Primary [facility] Diagnosis 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- Primary Long-term (current) 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 Paroxysmal atrial fibrillation (HCC) Atrial fibrillation [facility] Diagnosis jail current use of anticoagulant Long-term (current) 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 Paroxysmal atrial fibrillation (HCC) Atrial fibrillation [facility] Diagnosis Essential hypertension, benign- Primary Hyperlipidemia, unspecified hyperlipidemia type Edema of both lower legs Paroxysmal atrial fibrillation (HCC) Atrial fibrillation History of stroke with 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, psychotic disturbance, mood disturbance, or anxiety (HCC) Urinary frequency Abnormal CBC Other abnormal blood chemistry [facility] Diagnosis jail current use of anticoagulant- Primary Long-term (current) 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 Paroxysmal atrial fibrillation (HCC) Atrial fibrillation [facility] Diagnosis 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- Primary Long-term (current) 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 Paroxysmal atrial fibrillation (HCC) Atrial fibrillation [facility] Diagnosis Left hip pain Pain in joint, pelvic region and thigh [facility]* Diagnosis 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- Primary Long-term (current) 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 Paroxysmal atrial fibrillation (HCC) Atrial fibrillation [facility]* Diagnosis Acute right-sided low back pain, unspecified whether sciatica present [facility]* Diagnosis Paroxysmal atrial fibrillation (HCC)- Primary Atrial fibrillation [facility]* Diagnosis 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- Primary Long-term (current) 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 Paroxysmal atrial fibrillation (HCC) Atrial fibrillation [facility]* Diagnosis 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- Primary Long-term (current) 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 Paroxysmal atrial fibrillation (HCC) Atrial fibrillation [facility]* Diagnosis Dementia, unspecified dementia severity, unspecified dementia type, unspecified whether behavioral, psychotic, or mood disturbance or anxiety (HCC)- Primary [facility]* Diagnosis 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- Primary Long-term (current) 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 Paroxysmal atrial fibrillation (HCC) Atrial fibrillation [facility]* Diagnosis Dementia, unspecified dementia severity, unspecified [...] and musculoskeletal systems documented [facility]* Diagnosis Cognitive impairment, mild, so stated Mild cognitive impairment, so stated [facility] Diagnosis Essential hypertension, benign- Primary Hyperlipidemia, unspecified hyperlipidemia type Atherosclerosis 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, unspecified vessel or lesion type, unspecified whether [place] or transplanted heart Paroxysmal atrial fibrillation (HCC) Atrial fibrillation Edema of both lower legs History of stroke with 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 Dementia, unspecified dementia severity, unspecified dementia type, unspecified whether behavioral, psychotic, or mood disturbance or anxiety (HCC) documented [facility]* 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) Paralysis agitans [facility] Diagnosis Bursitis of right elbow, unspecified bursa- Primary [facility]* Diagnosis Moderate dementia without behavioral disturbance, psychotic disturbance, mood disturbance, or anxiety, unspecified dementia type (HCC)- Primary Hallucinations Screening for depression Encounter for screening examination for other mental health and behavioral disorders documented in this encounter [facility] for referral (narrative)* Diagnostic Procedure Only (Routine) - Authorized Specialty Diagnoses / Procedures Referred By Contac t Referred To Contact US IMAGING Diagnoses Thyroid nodule Procedures US THYROID/PARATHYROID US SOFT TISSUE HEAD & NECK REAL TIME IMGE Stas Queen MD [address] [place] [address] Us Imaging Referral ID Status Reason Start Date Expiration Date Visits Requested Visits Authorized [id number] Authorized Auto-Generat ed Referral 12/26/2021 01/25/2023 1 1 [facility] for referral (narrative)* Diagnostic Procedure Only (Urgent) - Closed Specialty Diagnoses / Procedures Referred By Contac t Referred To Contact XR IMAGING Diagnoses Left hip pain Procedures XR HIP GENERAL 3V PELV/AP/LAT LEFT RADEX HIP UNILATERAL WITH PELVIS 2-3 VIEWS Jenna Fitzpatrick APRN.CNP [address] [place] [address] [place] [address] Referral ID Status Reason Start Date Expiration Date V isits Requested Visits Authorized [id number] Closed Auto-Generate d Referral 05/21/2022 06/20/2023 1 1 [facility] for referral (narrative)No reason for referral information availableWSy[facility] Work Phone: Reason for visit Narrative* Diagnostic Procedure Only (Urgent) - Closed Specialty Diagnoses / Procedures Referred By Contac t Referred To Contact XR IMAGING Diagnoses Left hip pain Procedures XR HIP GENERAL 3V PELV/AP/LAT LEFT RADEX HIP UNILATERAL WITH PELVIS 2-3 VIEWS Jenna Fitzpatrick, DANYELLE [address] [place] [address] [place] [address] Referral ID Status Reason Start Date Expiration Date V isits Requested Visits Authorized [id number] Closed Auto-Generate d Referral 05/21/2022 06/20/2023 1 1 [facility] MRI/CT (Routine) - Closed Specialty Diagnoses / Procedures Referred By Contac t Referred To Contact MR IMAGING Diagnoses Cognitive impairment, mild, so stated Procedures MRI BRAIN W QUANT WO IVCON MRI BRAIN BRAIN STEM W/O CONTRAST MATERIAL Luciana Cisneros MD [address] [place] [address] Phone: tel: fax: [place] [id number] Referral ID Status Reason Start Date Expiration Date V isits Requested Visits Authorized [id number] Closed Auto-Generate d Referral 05/11/2024 07/10/2024 1 1 [facility] Summary Purpose Family History No Family [...] Will Yes December 21 6:17pm Power of Job Training Supervisor Yes December 21 6:17pm Name of Medical Power of Job Training Supervisor IRAJ HULL , DAUGHTER December 21, 2021 6:17pm Advance Directive Response Recorded Date/ Time Name of Medical Power of Job Training Supervisor Anabella Hull December 21, 2021 8:06pm Living Will Yes December 21 8:06pm Power of Job Training Supervisor Yes December 21 8:06pm Advance Directive Response Recorded Date/ Time Living Will Yes February 10, 023 3:17pm Power of Job Training Supervisor Yes February 10, 2023 3:17pm Name of Medical Power of Job Training Supervisor daughter-yomi hull February 10, 2023 3:17pm Advance Directive Response Recorded Date/ Time Do you have a Healthcare Power of Job Training Supervisor? Yes September 01, 2024 7:36am Name of Medical Power of Job Training Supervisor anabella hull September 01, 2024 7:36am Advance Directive Response Recorded Date/ Time Do you have a Healthcare Power of Job Training Supervisor? Yes September 01, 2024 12:00pm Name of Medical Power of Job Training Supervisor anabella hull September 01, 2024 12:00pm Chief [...] LAB WORK September 28, 2024 5:00a m RESIDENTIAL LAB WORK September 29, 2024 5: 00am Admission H&P Exam September 30, 2024 5:50 pm RESIDENTIAL LAB WORK October 05, 2024 5: 00am RESIDENTIAL LAB WORK October 06, 2024 5: 00am [...] LAB WORK September 28, 2024 5:00a m RESIDENTIAL LAB WORK September 29, 2024 5: 00am Admission H&P Exam September 30, 2024 5:50 pm RESIDENTIAL LAB WORK October 05, 2024 5: 00am RESIDENTIAL LAB WORK October 06, 2024 5: 00am New Concern October 20, 2024 2:54 pm Chief Complaint Admit Date DEBILITY, MECHANICAL FALL [...] LAB WORK September 19, 2024 5:00 am Admission Exam September 20, 2024 2:33p m LABWORK September 21, 2024 5:00a m LABWORK September 23, 2024 10:59 am LABWORK September 26, 2024 5:00a m LAB WORK September 28, 2024 5:00a m RESIDENTIAL LAB WORK September 29, 2024 5: 00am Admission H&P Exam September 30, 2024 5:50 pm RESIDENTIAL LAB WORK October 05, 2024 5: 00am RESIDENTIAL LAB WORK October 06, 2024 5: 00am New Concern October 20, 2024 2:54 pm LABWORK October 31, 2024 5: 00am LABWORK November 02, 2024 5: 00am Chief Complaint Admit Date [...] LAB WORK September 19, 2024 5:00 am Admission Exam September 20, 2024 2:33p m LABWORK September 21, 2024 5:00a m LABWORK September 23, 2024 10:59 am LABWORK September 26, 2024 5:00a m LAB WORK September 28, 2024 5:00a m RESIDENTIAL LAB WORK September 29, 2024 5: 00am Admission H&P Exam September 30, 2024 5:50 pm RESIDENTIAL LAB WORK October 05, 2024 5: 00am RESIDENTIAL LAB WORK October 06, 2024 5: 00am New Concern October 20, 2024 2:54 pm ADMISSION, H&P October 25, 2024 2:2 2pm LABWORK October 31, 2024 5: 00am LABWORK November 02, 2024 5: 00am Reason for Referral Specialty Diagnoses / Procedures Referred By Jennifer gomez Referred To Contact [facility] Diagnoses Shuffling gait Ambulatory dysfunction Balance disorder Procedures CONSULT TO PHYSICAL THERAPY PHYSICAL THERAPY EVALUATION HIGH COMPLEX 45 MINS Luciana Cisneros MD [address] [place] [address] [facility] [address] [place] [id number] Referral ID Status Reason Start Date Expiration Date Visits Requested Visits Authorized [id number] Pending Review Auto-Generat ed Referral 04/27/2024 04/27/2025 1 1 Specialty Diagnoses / Procedures Referred By Contac t Referred To Contact MR IMAGING Diagnoses Cognitive impairment, mild, so stated Procedures MRI BRAIN W QUANT WO IVCON MRI BRAIN BRAIN STEM W/O CONTRAST MATERIAL Luciana Cisneros MD [address] [place] [address] Mr Imaging [facility] Referral ID Status Reason Start Date Expiration Date Visits Requested Visits Authorized [id number] Pending Review Auto-Generat ed Referral 04/27/2024 05/27/2025 1 1 Specialty Diagnoses / Procedures Referred By Contac t Referred To Contact Gerontology Diagnoses Dementia, unspecified dementia severity, unspecified dementia type, unspecified whether behavioral, psychotic, or mood disturbance or anxiety (HCC) Procedures CONSULT TO [facility]IATRICS OFFICE[facility] 60 MINUTES Stas Mora MD [address] [place] [address] Referral ID Status Reason Start Date Expiration Date Visits Requested Visits Authorized [id number] Authorized PCP Requested Referral 04/25/2024 04/25/2025 1 1 Specialty Diagnoses / Procedures [facility] Referred To Contact MR IMAGING Diagnoses Cerebral infarction, unspecified mechanism (HCC) Procedures MRI BRAIN WO IVCON MRI BRAIN BRAIN STEM W/O CONTRAST MATERIAL Stas Mora MD [address] [place] [address] Mr Imaging [facility] Referral ID Status Reason Start Date Expiration Date Visits Requested Visits Authorized [id number] Pending Review Auto-Genera eli Referral Patient Cleared - Admin/Chair man/Directo r advise to proceed or did not respond 3 03/17/2024 1 1 Additional Source Comments (unrecognized sect ion and content) No Status Records FoundNo Status Records FoundNo Status Records FoundNo Status Records FoundNo Status Records FoundNo Status Records FoundNo Status Records Found INFORMATION SOURCE (unrecogn ized section and content) DATE CREATED AUTHOR 09/11/2017 [facility] DATE CREATED AUTHOR AUTHOR'S ORGANIZ ATION 09/11/2017 [facility] DATE CREATED AUTHOR AUTHOR'S ORGANIZ ATION 09/15/2017 [facility] DATE CREATED AUTHOR AUTHOR'S ORGANIZ ATION 08/12/2023 [facility] ([place]) DATE CREATED AUTHOR AUTHOR'S ORGANIZ ATION 05/24/2024 [facility] DATE CREATED AUTHOR AUTHOR'S ORGANIZ ATION 11/19/2024 [facility] DATE CREATED AUTHOR AUTHOR'S ORGANIZ ATION 11/22/2024 [facility] Source Comments (unrecognize d section and content) In the event this informatio n is protected by the Federal Confidentiality of Alcohol and Drug Abuse Patient Records regulations: The Federal rules restrict any use of the information to criminally investigate or prosecute any alcohol or drug abuse patient.[facility] the event this information is protected by the Federal Confidentiality of Alcohol and Drug Abuse Patient Records regulations: The Federal rules restrict any use of the information to criminally investigate or prosecute any alcohol or drug abuse patient.[facility] the event this information is protected by the Federal Confidentiality of Alcohol and Drug Abuse Patient Records regulations: The Federal rules restrict any use of the information to criminally investigate or prosecute any alcohol or drug abuse patient.[facility] the event this information is protected by the Federal Confidentiality of Alcohol and Drug Abuse Patient Records regulations: The Federal rules restrict any use of the information to criminally investigate or prosecute any alcohol or drug abuse patient.[facility] the event this information is protected by the Federal Confidentiality of Alcohol and Drug Abuse Patient Records regulations: The Federal rules restrict any use of the information to criminally investigate or prosecute any alcohol or drug abuse patient.[facility] the event this information is protected by the Federal Confidentiality of Alcohol and Drug Abuse Patient Records regulations: The Federal rules restrict any use of the information to criminally investigate or prosecute any alcohol or drug abuse patient.[facility] the event this information is protected by the Federal Confidentiality of Alcohol and Drug Abuse Patient Records regulations: The Federal rules restrict any use of the information to criminally investigate or prosecute any alcohol or drug abuse patient.[facility] the event this information is protected by the Federal Confidentiality of Alcohol and Drug Abuse Patient Records regulations: The Federal rules restrict any use of the information to criminally investigate or prosecute any alcohol or drug abuse patient.[facility] the event this information is protected by the Federal Confidentiality of Alcohol and Drug Abuse Patient Records regulations: The Federal rules restrict any use of the information to criminally investigate or prosecute any alcohol or drug abuse patient.[facility] the event this information is protected by the Federal Confidentiality of Alcohol and Drug Abuse Patient Records regulations: The Federal rules restrict any use of the information to criminally investigate or prosecute any alcohol or drug abuse patient.[facility] the event this information is protected by the Federal Confidentiality of Alcohol and Drug Abuse Patient Records regulations: The Federal rules restrict any use of the information to criminally investigate or prosecute any alcohol or drug abuse patient.[facility] Hospital[facility] the event this information is protected by the Federal Confidentiality of Alcohol and Drug Abuse Patient Records regulations: The Federal rules restrict any use of the information to criminally investigate or prosecute any alcohol or drug abuse patient.[facility] the event this information is protected by the Federal Confidentiality of Alcohol and Drug Abuse Patient Records regulations: The Federal rules restrict any use of the information to criminally investigate or prosecute any alcohol or drug abuse patient.[facility] Hospital[facility] the event this information is protected by the Federal Confidentiality of Alcohol and Drug Abuse Patient Records regulations: The Federal rules restrict any use of the information to criminally investigate or prosecute any alcohol or drug abuse patient.[facility] the event this information is protected by the Federal Confidentiality of Alcohol and Drug Abuse Patient Records regulations: The Federal rules restrict any use of the information to criminally investigate or prosecute any alcohol or drug abuse patient.[facility] Hospital[facility] the event this information is protected by the Federal Confidentiality of Alcohol and Drug Abuse Patient Records regulations: The Federal rules restrict any use of the information to criminally investigate or prosecute any alcohol or drug abuse patient.[facility]In the event this information is protected by the Federal Confidentiality of Alcohol and Drug Abuse Patient Records regulations: The Federal rules restrict any use of the information to criminally investigate or prosecute any alcohol or drug abuse patient.[facility] HospitalIn the event this information is protected by the Federal Confidentiality of Alcohol and Drug Abuse Patient Records regulations: The Federal rules restrict any use of the information to criminally investigate or prosecute any alcohol or drug abuse patient.[facility] HospitalIn the event this information is protected by the Federal Confidentiality of Alcohol and Drug Abuse Patient Records regulations: The Federal rules restrict any use of the information to criminally investigate or prosecute any alcohol or drug abuse patient.[facility] HospitalIn the event this information is protected by the Federal Confidentiality of Alcohol and Drug Abuse Patient Records regulations: The Federal rules restrict any use of the information to criminally investigate or prosecute any alcohol or drug abuse patient.[facility] HospitalIn the event this information is protected by the Federal Confidentiality of Alcohol and Drug Abuse Patient Records regulations: The Federal rules restrict any use of the information to criminally investigate or prosecute any alcohol or drug abuse patient.[facility] HospitalIn the event this information is protected by the Federal Confidentiality of Alcohol and Drug Abuse Patient Records regulations: The Federal rules restrict any use of the information to criminally investigate or prosecute any alcohol or drug abuse patient.[facility] HospitalIn the event this information is protected by the Federal Confidentiality of Alcohol and Drug Abuse Patient Records regulations: The Federal rules restrict any use of the information to criminally investigate or prosecute any alcohol or drug abuse patient.[facility] HospitalIn the event this information is protected by the Federal Confidentiality of Alcohol and Drug Abuse Patient Records regulations: The Federal rules restrict any use of the information to criminally investigate or prosecute any alcohol or drug abuse patient.[facility] HospitalIn the event this information is protected by the Federal Confidentiality of Alcohol and Drug Abuse Patient Records regulations: The Federal rules restrict any use of the information to criminally investigate or prosecute any alcohol or drug abuse patient.[facility] HospitalIn the event this information is protected by the Federal Confidentiality of Alcohol and Drug Abuse Patient Records regulations: The Federal rules restrict any use of the information to criminally investigate or prosecute any alcohol or drug abuse patient.[facility] HospitalIn the event this information is protected by the Federal Confidentiality of Alcohol and Drug Abuse Patient Records regulations: The Federal rules restrict any use of the information to criminally investigate or prosecute any alcohol or drug abuse patient.[facility] HospitalIn the event this information is protected by the Federal Confidentiality of Alcohol and Drug Abuse Patient Records regulations: The Federal rules restrict any use of the information to criminally investigate or prosecute any alcohol or drug abuse patient.[facility] HospitalIn the event this information is protected by the Federal Confidentiality of Alcohol and Drug Abuse Patient Records regulations: The Federal rules restrict any use of the information to criminally investigate or prosecute any alcohol or drug abuse patient.[facility] HospitalIn the event this information is protected by the Federal Confidentiality of Alcohol and Drug Abuse Patient Records regulations: The Federal rules restrict any use of the information to criminally investigate or prosecute any alcohol or drug abuse patient.[facility] HospitalIn the event this information is protected by the Federal Confidentiality of Alcohol and Drug Abuse Patient Records regulations: The Federal rules restrict any use of the information to criminally investigate or prosecute any alcohol or drug abuse patient.[facility] HospitalIn the event this information is protected by the Federal Confidentiality of Alcohol and Drug Abuse Patient Records regulations: The Federal rules restrict any use of the information to criminally investigate or prosecute any alcohol or drug abuse patient.[facility] HospitalIn the event this information is protected by the Federal Confidentiality of Alcohol and Drug Abuse Patient Records regulations: The Federal rules restrict any use of the information to criminally investigate or prosecute any alcohol or drug abuse patient.[facility] HospitalIn the event this information is protected by the Federal Confidentiality of Alcohol and Drug Abuse Patient Records regulations: The Federal rules restrict any use of the information to criminally investigate or prosecute any alcohol or drug abuse patient.[facility] HospitalIn the event this information is protected by the Federal Confidentiality of Alcohol and Drug Abuse Patient Records regulations: The Federal rules restrict any use of the information to criminally investigate or prosecute any alcohol or drug abuse patient.[facility] HospitalIn the event this information is protected by the Federal Confidentiality of Alcohol and Drug Abuse Patient Records regulations: The Federal rules restrict any use of the information to criminally investigate or prosecute any alcohol or drug abuse patient.[facility] HospitalIn the event this information is protected by the Federal Confidentiality of Alcohol and Drug Abuse Patient Records regulations: The Federal rules restrict any use of the information to criminally investigate or prosecute any alcohol or drug abuse patient.[facility] HospitalIn the event this information is protected by the Federal Confidentiality of Alcohol and Drug Abuse Patient Records regulations: The Federal rules restrict any use of the information to criminally investigate or prosecute any alcohol or drug abuse patient.[facility] HospitalIn the event this information is protected by the Federal Confidentiality of Alcohol and Drug Abuse Patient Records regulations: The Federal rules restrict any use of the information to criminally investigate or prosecute any alcohol or drug abuse patient.[facility] HospitalIn the event this information is protected by the Federal Confidentiality of Alcohol and Drug Abuse Patient Records regulations: The Federal rules restrict any use of the information to criminally investigate or prosecute any alcohol or drug abuse patient.[facility] HospitalIn the event this information is protected by the Federal Confidentiality of Alcohol and Drug Abuse Patient Records regulations: The Federal rules restrict any use of the information to criminally investigate or prosecute any alcohol or drug abuse patient.[facility] HospitalIn the event this information is protected by the Federal Confidentiality of Alcohol and Drug Abuse Patient Records regulations: The Federal rules restrict any use of the information to criminally investigate or prosecute any alcohol or drug abuse patient.[facility] HospitalIn the event this information is protected by the Federal Confidentiality of Alcohol and Drug Abuse Patient Records regulations: The Federal rules restrict any use of the information to criminally investigate or prosecute any alcohol or drug abuse patient.[facility] HospitalIn the event this information is protected by the Federal Confidentiality of Alcohol and Drug Abuse Patient Records regulations: The Federal rules restrict any use of the information to criminally investigate or prosecute any alcohol or drug abuse patient.[facility] HospitalIn the event this information is protected by the Federal Confidentiality of Alcohol and Drug Abuse Patient Records regulations: The Federal rules restrict any use of the information to criminally investigate or prosecute any alcohol or drug abuse patient.[facility] HospitalIn the event this information is protected by the Federal Confidentiality of Alcohol and Drug Abuse Patient Records regulations: The Federal rules restrict any use of the information to criminally investigate or prosecute any alcohol or drug abuse patient.[facility] HospitalIn the event this information is protected by the Federal Confidentiality of Alcohol and Drug Abuse Patient Records regulations: The Federal rules restrict any use of the information to criminally investigate or prosecute any alcohol or drug abuse patient.[facility] HospitalIn the event this information is protected by the Federal Confidentiality of Alcohol and Drug Abuse Patient Records regulations: The Federal rules restrict any use of the information to criminally investigate or prosecute any alcohol or drug abuse patient.[facility] HospitalIn the event this information is protected by the Federal Confidentiality of Alcohol and Drug Abuse Patient Records regulations: The Federal rules restrict any use of the information to criminally investigate or prosecute any alcohol or drug abuse patient.[facility] HospitalIn the event this information is protected by the Federal Confidentiality of Alcohol and Drug Abuse Patient Records regulations: The Federal rules restrict any use of the information to criminally investigate or prosecute any alcohol or drug abuse patient.[facility] HospitalIn the event this information is protected by the Federal Confidentiality of Alcohol and Drug Abuse Patient Records regulations: The Federal rules restrict any use of the information to criminally investigate or prosecute any alcohol or drug abuse patient.[facility] HospitalIn the event this information is protected by the Federal Confidentiality of Alcohol and Drug Abuse Patient Records regulations: The Federal rules restrict any use of the information to criminally investigate or prosecute any alcohol or drug abuse patient.[facility] HospitalIn the event this information is protected by the Federal Confidentiality of Alcohol and Drug Abuse Patient Records regulations: The Federal rules restrict any use of the information to criminally investigate or prosecute any alcohol or drug abuse patient.[facility] HospitalIn the event this information is protected by the Federal Confidentiality of Alcohol and Drug Abuse Patient Records regulations: The Federal rules restrict any use of the information to criminally investigate or prosecute any alcohol or drug abuse patient.[facility] HospitalIn the event this information is protected by the Federal Confidentiality of Alcohol and Drug Abuse Patient Records regulations: The Federal rules restrict any use of the information to criminally investigate or prosecute any alcohol or drug abuse patient.[facility] HospitalIn the event this information is protected by the Federal Confidentiality of Alcohol and Drug Abuse Patient Records regulations: The Federal rules restrict any use of the information to criminally investigate or prosecute any alcohol or drug abuse patient.[facility] HospitalIn the event this information is protected by the Federal Confidentiality of Alcohol and Drug Abuse Patient Records regulations: The Federal rules restrict any use of the information to criminally investigate or prosecute any alcohol or drug abuse patient.[facility] HospitalIn the event this information is protected by the Federal Confidentiality of Alcohol and Drug Abuse Patient Records regulations: The Federal rules restrict any use of the information to criminally investigate or prosecute any alcohol or drug abuse patient.[facility] HospitalIn the event this information is protected by the Federal Confidentiality of Alcohol and Drug Abuse Patient Records regulations: The Federal rules restrict any use of the information to criminally investigate or prosecute any alcohol or drug abuse patient.[facility] HospitalIn the event this information is protected by the Federal Confidentiality of Alcohol and Drug Abuse Patient Records regulations: The Federal rules restrict any use of the information to criminally investigate or prosecute any alcohol or drug abuse patient.[facility] HospitalIn the event this information is protected by the Federal Confidentiality of Alcohol and Drug Abuse Patient Records regulations: The Federal rules restrict any use of the information to criminally investigate or prosecute any alcohol or drug abuse patient.[facility] HospitalIn the event this information is protected by the Federal Confidentiality of Alcohol and Drug Abuse Patient Records regulations: The Federal rules restrict any use of the information to criminally investigate or prosecute any alcohol or drug abuse patient.[facility] HospitalIn the event this information is protected by the Federal Confidentiality of Alcohol and Drug Abuse Patient Records regulations: The Federal rules restrict any use of the information to criminally investigate or prosecute any alcohol or drug abuse patient.[facility] HospitalIn the event this information is protected by the Federal Confidentiality of Alcohol and Drug Abuse Patient Records regulations: The Federal rules restrict any use of the information to criminally investigate or prosecute any alcohol or drug abuse patient.[facility] HospitalIn the event this information is protected by the Federal Confidentiality of Alcohol and Drug Abuse Patient Records regulations: The Federal rules restrict any use of the information to criminally investigate or prosecute any alcohol or drug abuse patient.[facility] HospitalIn the event this information is protected by the Federal Confidentiality of Alcohol and Drug Abuse Patient Records regulations: The Federal rules restrict any use of the information to criminally investigate or prosecute any alcohol or drug abuse patient.[facility] HospitalIn the event this information is protected by the Federal Confidentiality of Alcohol and Drug Abuse Patient Records regulations: The Federal rules restrict any use of the information to criminally investigate or prosecute any alcohol or drug abuse patient.[facility] HospitalIn the event this information is protected by the Federal Confidentiality of Alcohol and Drug Abuse Patient Records regulations: The Federal rules restrict any use of the information to criminally investigate or prosecute any alcohol or drug abuse patient.[facility] HospitalIn the event this information is protected by the Federal Confidentiality of Alcohol and Drug Abuse Patient Records regulations: The Federal rules restrict any use of the information to criminally investigate or prosecute any alcohol or drug abuse patient.[facility] HospitalIn the event this information is protected by the Federal Confidentiality of Alcohol and Drug Abuse Patient Records regulations: The Federal rules restrict any use of the information to criminally investigate or prosecute any alcohol or drug abuse patient.[facility] HospitalIn the event this information is protected by the Federal Confidentiality of Alcohol and Drug Abuse Patient Records regulations: The Federal rules restrict any use of the information to criminally investigate or prosecute any alcohol or drug abuse patient.[facility] HospitalIn the event this information is protected by the Federal Confidentiality of Alcohol and Drug Abuse Patient Records regulations: The Federal rules restrict any use of the information to criminally investigate or prosecute any alcohol or drug abuse patient.[facility] HospitalIn the event this information is protected by the Federal Confidentiality of Alcohol and Drug Abuse Patient Records regulations: The Federal rules restrict any use of the information to criminally investigate or prosecute any alcohol or drug abuse patient.[facility] HospitalIn the event this information is protected by the Federal Confidentiality of Alcohol and Drug Abuse Patient Records regulations: The Federal rules restrict any use of the information to criminally investigate or prosecute any alcohol or drug abuse patient.[facility] HospitalIn the event this information is protected by the Federal Confidentiality of Alcohol and Drug Abuse Patient Records regulations: The Federal rules restrict any use of the information to criminally investigate or prosecute any alcohol or drug abuse patient.[facility] HospitalIn the event this information is protected by the Federal Confidentiality of Alcohol and Drug Abuse Patient Records regulations: The Federal rules restrict any use of the information to criminally investigate or prosecute any alcohol or drug abuse patient.[facility] HospitalIn the event this information is protected by the Federal Confidentiality of Alcohol and Drug Abuse Patient Records regulations: The Federal rules restrict any use of the information to criminally investigate or prosecute any alcohol or drug abuse patient.[facility] HospitalIn the event this information is protected by the Federal Confidentiality of Alcohol and Drug Abuse Patient Records regulations: The Federal rules restrict any use of the information to criminally investigate or prosecute any alcohol or drug abuse patient.[facility] HospitalIn the event this information is protected by the Federal Confidentiality of Alcohol and Drug Abuse Patient Records regulations: The Federal rules restrict any use of the information to criminally investigate or prosecute any alcohol or drug abuse patient.[facility] HospitalIn the event this information is protected by the Federal Confidentiality of Alcohol and Drug Abuse Patient Records regulations: The Federal rules restrict any use of the information to criminally investigate or prosecute any alcohol or drug abuse patient.[facility] HospitalIn the event this information is protected by the Federal Confidentiality of Alcohol and Drug Abuse Patient Records regulations: The Federal rules restrict any use of the information to criminally investigate or prosecute any alcohol or drug abuse patient.[facility] HospitalIn the event this information is protected by the Federal Confidentiality of Alcohol and Drug Abuse Patient Records regulations: The Federal rules restrict any use of the information to criminally investigate or prosecute any alcohol or drug abuse patient.[facility] HospitalIn the event this information is protected by the Federal Confidentiality of Alcohol and Drug Abuse Patient Records regulations: The Federal rules restrict any use of the information to criminally investigate or prosecute any alcohol or drug abuse patient.[facility] HospitalIn the event this information is protected by the Federal Confidentiality of Alcohol and Drug Abuse Patient Records regulations: The Federal rules restrict any use of the information to criminally investigate or prosecute any alcohol or drug abuse patient.[facility] HospitalIn the event this information is protected by the Federal Confidentiality of Alcohol and Drug Abuse Patient Records regulations: The Federal rules restrict any use of the information to criminally investigate or prosecute any alcohol or drug abuse patient.[facility] HospitalIn the event this information is protected by the Federal Confidentiality of Alcohol and Drug Abuse Patient Records regulations: The Federal rules restrict any use of the information to criminally investigate or prosecute any alcohol or drug abuse patient.[facility] HospitalIn the event this information is protected by the Federal Confidentiality of Alcohol and Drug Abuse Patient Records regulations: The Federal rules restrict any use of the information to criminally investigate or prosecute any alcohol or drug abuse patient.[facility] HospitalIn the event this information is protected by the Federal Confidentiality of Alcohol and Drug Abuse Patient Records regulations: The Federal rules restrict any use of the information to criminally investigate or prosecute any alcohol or drug abuse patient.[facility] HospitalIn the event this information is protected by the Federal Confidentiality of Alcohol and Drug Abuse Patient Records regulations: The Federal rules restrict any use of the information to criminally investigate or prosecute any alcohol or drug abuse patient.[facility] HospitalIn the event this information is protected by the Federal Confidentiality of Alcohol and Drug Abuse Patient Records regulations: The Federal rules restrict any use of the information to criminally investigate or prosecute any alcohol or drug abuse patient.[facility] HospitalIn the event this information is protected by the Federal Confidentiality of Alcohol and Drug Abuse Patient Records regulations: The Federal rules restrict any use of the information to criminally investigate or prosecute any alcohol or drug abuse patient.[facility] HospitalIn the event this information is protected by the Federal Confidentiality of Alcohol and Drug Abuse Patient Records regulations: The Federal rules restrict any use of the information to criminally investigate or prosecute any alcohol or drug abuse patient.[facility] HospitalIn the event this information is protected by the Federal Confidentiality of Alcohol and Drug Abuse Patient Records regulations: The Federal rules restrict any use of the information to criminally investigate or prosecute any alcohol or drug abuse patient.[facility] HospitalIn the event this information is protected by the Federal Confidentiality of Alcohol and Drug Abuse Patient Records regulations: The Federal rules restrict any use of the information to criminally investigate or prosecute any alcohol or drug abuse patient.[facility] HospitalIn the event this information is protected by the Federal Confidentiality of Alcohol and Drug Abuse Patient Records regulations: The Federal rules restrict any use of the information to criminally investigate or prosecute any alcohol or drug abuse patient.[facility] HospitalIn the event this information is protected by the Federal Confidentiality of Alcohol and Drug Abuse Patient Records regulations: The Federal rules restrict any use of the information to criminally investigate or prosecute any alcohol or drug abuse patient.[facility] HospitalIn the event this information is protected by the Federal Confidentiality of Alcohol and Drug Abuse Patient Records regulations: The Federal rules restrict any use of the information to criminally investigate or prosecute any alcohol or drug abuse patient.[facility] HospitalIn the event this information is protected by the Federal Confidentiality of Alcohol and Drug Abuse Patient Records regulations: The Federal rules restrict any use of the information to criminally investigate or prosecute any alcohol or drug abuse patient.[facility] HospitalIn the event this information is protected by the Federal Confidentiality of Alcohol and Drug Abuse Patient Records regulations: The Federal rules restrict any use of the information to criminally investigate or prosecute any alcohol or drug abuse patient.[facility] HospitalIn the event this information is protected by the Federal Confidentiality of Alcohol and Drug Abuse Patient Records regulations: The Federal rules restrict any use of the information to criminally investigate or prosecute any alcohol or drug abuse patient.[facility] HospitalIn the event this information is protected by the Federal Confidentiality of Alcohol and Drug Abuse Patient Records regulations: The Federal rules restrict any use of the information to criminally investigate or prosecute any alcohol or drug abuse patient.[facility] HospitalIn the event this information is protected by the Federal Confidentiality of Alcohol and Drug Abuse Patient Records regulations: The Federal rules restrict any use of the information to criminally investigate or prosecute any alcohol or drug abuse patient.[facility] HospitalIn the event this information is protected by the Federal Confidentiality of Alcohol and Drug Abuse Patient Records regulations: The Federal rules restrict any use of the information to criminally investigate or prosecute any alcohol or drug abuse patient.[facility] HospitalIn the event this information is protected by the Federal Confidentiality of Alcohol and Drug Abuse Patient Records regulations: The Federal rules restrict any use of the information to criminally investigate or prosecute any alcohol or drug abuse patient.[facility] HospitalIn the event this information is protected by the Federal Confidentiality of Alcohol and Drug Abuse Patient Records regulations: The Federal rules restrict any use of the information to criminally investigate or prosecute any alcohol or drug abuse patient.[facility] HospitalIn the event this information is protected by the Federal Confidentiality of Alcohol and Drug Abuse Patient Records regulations: The Federal rules restrict any use of the information to criminally investigate or prosecute any alcohol or drug abuse patient.[facility] HospitalIn the event this information is protected by the Federal Confidentiality of Alcohol and Drug Abuse Patient Records regulations: The Federal rules restrict any use of the information to criminally investigate or prosecute any alcohol or drug abuse patient.[facility] HospitalIn the event this information is protected by the Federal Confidentiality of Alcohol and Drug Abuse Patient Records regulations: The Federal rules restrict any use of the information to criminally investigate or prosecute any alcohol or drug abuse patient.[facility] HospitalIn the event this information is protected by the Federal Confidentiality of Alcohol and Drug Abuse Patient Records regulations: The Federal rules restrict any use of the information to criminally investigate or prosecute any alcohol or drug abuse patient.[facility] HospitalIn the event this information is protected by the Federal Confidentiality of Alcohol and Drug Abuse Patient Records regulations: The Federal rules restrict any use of the information to criminally investigate or prosecute any alcohol or drug abuse patient.[facility] HospitalIn the event this information is protected by the Federal Confidentiality of Alcohol and Drug Abuse Patient Records regulations: The Federal rules restrict any use of the information to criminally investigate or prosecute any alcohol or drug abuse patient.[facility] HospitalIn the event this information is protected by the Federal Confidentiality of Alcohol and Drug Abuse Patient Records regulations: The Federal rules restrict any use of the information to criminally investigate or prosecute any alcohol or drug abuse patient.[facility] HospitalIn the event this information is protected by the Federal Confidentiality of Alcohol and Drug Abuse Patient Records regulations: The Federal rules restrict any use of the information to criminally investigate or prosecute any alcohol or drug abuse patient.[facility] HospitalIn the event this information is protected by the Federal Confidentiality of Alcohol and Drug Abuse Patient Records regulations: The Federal rules restrict any use of the information to criminally investigate or prosecute any alcohol or drug abuse patient.[facility] HospitalIn the event this information is protected by the Federal Confidentiality of Alcohol and Drug Abuse Patient Records regulations: The Federal rules restrict any use of the information to criminally investigate or prosecute any alcohol or drug abuse patient.[facility] HospitalIn the event this information is protected by the Federal Confidentiality of Alcohol and Drug Abuse Patient Records regulations: The Federal rules restrict any use of the information to criminally investigate or prosecute any alcohol or drug abuse patient.[facility] HospitalIn the event this information is protected by the Federal Confidentiality of Alcohol and Drug Abuse Patient Records regulations: The Federal rules restrict any use of the information to criminally investigate or prosecute any alcohol or drug abuse patient.[facility] HospitalIn the event this information is protected by the Federal Confidentiality of Alcohol and Drug Abuse Patient Records regulations: The Federal rules restrict any use of the information to criminally investigate or prosecute any alcohol or drug abuse patient.[facility] HospitalIn the event this information is protected by the Federal Confidentiality of Alcohol and Drug Abuse Patient Records regulations: The Federal rules restrict any use of the information to criminally investigate or prosecute any alcohol or drug abuse patient.[facility] HospitalIn the event this information is protected by the Federal Confidentiality of Alcohol and Drug Abuse Patient Records regulations: The Federal rules restrict any use of the information to criminally investigate or prosecute any alcohol or drug abuse patient.[facility] HospitalIn the event this information is protected by the Federal Confidentiality of Alcohol and Drug Abuse Patient Records regulations: The Federal rules restrict any use of the information to criminally investigate or prosecute any alcohol or drug abuse patient.[facility] HospitalIn the event this information is protected by the Federal Confidentiality of Alcohol and Drug Abuse Patient Records regulations: The Federal rules restrict any use of the information to criminally investigate or prosecute any alcohol or drug abuse patient.[facility] HospitalIn the event this information is protected by the Federal Confidentiality of Alcohol and Drug Abuse Patient Records regulations: The Federal rules restrict any use of the information to criminally investigate or prosecute any alcohol or drug abuse patient.[facility] HospitalIn the event this information is protected by the Federal Confidentiality of Alcohol and Drug Abuse Patient Records regulations: The Federal rules restrict any use of the information to criminally investigate or prosecute any alcohol or drug abuse patient.[facility] HospitalIn the event this information is protected by the Federal Confidentiality of Alcohol and Drug Abuse Patient Records regulations: The Federal rules restrict any use of the information to criminally investigate or prosecute any alcohol or drug abuse patient.[facility] HospitalIn the event this information is protected by the Federal Confidentiality of Alcohol and Drug Abuse Patient Records regulations: The Federal rules restrict any use of the information to criminally investigate or prosecute any alcohol or drug abuse patient.[facility] HospitalIn the event this information is protected by the Federal Confidentiality of Alcohol and Drug Abuse Patient Records regulations: The Federal rules restrict any use of the information to criminally investigate or prosecute any alcohol or drug abuse patient.[facility] HospitalIn the event this information is protected by the Federal Confidentiality of Alcohol and Drug Abuse Patient Records regulations: The Federal rules restrict any use of the information to criminally investigate or prosecute any alcohol or drug abuse patient.[facility] HospitalIn the event this information is protected by the Federal Confidentiality of Alcohol and Drug Abuse Patient Records regulations: The Federal rules restrict any use of the information to criminally investigate or prosecute any alcohol or drug abuse patient.[facility] HospitalIn the event this information is protected by the Federal Confidentiality of Alcohol and Drug Abuse Patient Records regulations: The Federal rules restrict any use of the information to criminally investigate or prosecute any alcohol or drug abuse patient.[facility] HospitalIn the event this information is protected by the Federal Confidentiality of Alcohol and Drug Abuse Patient Records regulations: The Federal rules restrict any use of the information to criminally investigate or prosecute any alcohol or drug abuse patient.[facility] HospitalIn the event this information is protected by the Federal Confidentiality of Alcohol and Drug Abuse Patient Records regulations: The Federal rules restrict any use of the information to criminally investigate or prosecute any alcohol or drug abuse patient.[facility] HospitalIn the event this information is protected by the Federal Confidentiality of Alcohol and Drug Abuse Patient Records regulations: The Federal rules restrict any use of the information to criminally investigate or prosecute any alcohol or drug abuse patient.[facility] HospitalIn the event this information is protected by the Federal Confidentiality of Alcohol and Drug Abuse Patient Records regulations: The Federal rules restrict any use of the information to criminally investigate or prosecute any alcohol or drug abuse patient.[facility] Reason for Visit (unrecogniz ed section [...] STEM W/O CONTRAST MATERIAL Stas Mora MD [address] [place] [address] [place] [address] Referral ID Status Reason Start Date Expiration Date V isits Requested Visits Authorized [id number] Closed Auto-Generat ed Referral Patient Cleared - [...] anxiety (HCC) Procedures CONSULT TO GERIATRICS OFFICE[facility] 60 MINUTES Stas Mora MD [address] [place] [address] Referral ID Status Reason Start Date Expiration Date V isits Requested Visits Authorized [id number] Closed PCP Requested Referral 04/25/2024 04/25/2025 1 [...] Care Teams (unrecognized sec tion and content) Crm Developer Relationship Specialty Start Date End Date Stas Mora MD [address] [facility] [place] [address] PCP - General 08/02/08, Pharmacist [address] [place] [address] Pharmacist Pharmacy 10/19/19 Crm Developer Relationship Specialty Start Date End Date Stas Mora MD [address] [place] [address] PCP - General 08/02/08, Pharmacist [phone] [place] [address] Pharmacist Pharmacy 10/19/19 Crm Developer Relationship Specialty Start Date End Date Stas Mora MD [address] [place] [address] PCP - General 08/02/08, Pharmacist [address] [place] [address] Pharmacist Pharmacy 10/19/19 Crm Developer Relationship Specialty Start Date End Date Stas Mora MD [address] [place] [address] PCP - General 08/02/08, Pharmacist [phone] [place] [address] Pharmacist Pharmacy 10/19/19 Crm Developer Relationship Specialty Start Date End Date Stas Mora MD [address] [place] [address] PCP - General 08/02/08, Pharmacist [address] [place] [address] Pharmacist Pharmacy 10/19/19 Crm Developer Relationship Specialty Start Date End Date Stas Mora MD [address] [place] [address] PCP - General 08/02/08, Pharmacist [address] [place] [address] Pharmacist Pharmacy 10/19/19 Crm Developer Relationship Specialty Start Date End Date Stas Mora MD [address] [facility] [place] [address] PCP - General 08/02/08, Pharmacist [address] [place] [address] Pharmacist Pharmacy 10/19/19 Crm Developer Relationship Specialty Start Date End Date Stas Mora MD [address] [facility] [place] [address] PCP - General 08/02/08, Pharmacist [phone] [place] [address], [place] [address] Pharmacist Pharmacy 10/19/19 Crm Developer Relationship Specialty Start Date End Date Stas Mora MD [address] [place] [address] PCP - General 08/02/08, Pharmacist [phone] [place] [address], [place] [address] Pharmacist Pharmacy 10/19/19 Crm Developer Relationship Specialty Start Date End Date Stas Mora MD [address] [place] [address] PCP - General 08/02/08, Pharmacist [phone] [place] [address], [place] [address] Pharmacist Pharmacy 10/19/19 Crm Developer Relationship Specialty Start Date End Date Stas Mora MD [address] [facility] [place] [address] PCP - General 08/02/08, Pharmacist [phone] [place] [address], [place] [address] Pharmacist Pharmacy 10/19/19 Crm Developer Relationship Specialty Start Date End Date Stas Mora MD [address] [place] [address] PCP - General 08/02/08, Pharmacist [address] [place] [address] Pharmacist Pharmacy 10/19/19 Crm Developer Relationship Specialty Start Date End Date Stas Mora MD [address] [place] [address] PCP - General 08/02/08, Pharmacist [address] [place] [address] Pharmacist Pharmacy 10/19/19 Crm Developer Relationship Specialty Start Date End Date Stas Mora MD [address] [place] [address] PCP - General 08/02/08, Pharmacist [phone] [place] [address], [place] [address] Pharmacist Pharmacy 10/19/19 Crm Developer Relationship Specialty Start Date End Date Stas Mora MD [address] [place] [address] PCP - General 08/02/08, Pharmacist [phone] [place] [address], [place] [address] Pharmacist Pharmacy 10/19/19 Crm Developer Relationship Specialty Start Date End Date Stas Mora MD [address] [place] [address] PCP - General 08/02/08, Pharmacist [address] [place] [address] Pharmacist Pharmacy 10/19/19 Crm Developer Relationship Specialty Start Date End Date Stas Mora MD [address] [place] [address] PCP - General 08/02/08, Pharmacist [phone] [place] [address], [place] [address] Pharmacist Pharmacy 10/19/19 Crm Developer Relationship Specialty Start Date End Date Stas Mora MD [address] [place] [address] PCP - General 08/02/08, Pharmacist [address] [place] [address] Pharmacist Pharmacy 10/19/19 Crm Developer Relationship Specialty Start Date End Date Stas Mora MD [address] [place] [address] PCP - General 08/02/08, Pharmacist [address] [place] [address] Pharmacist Pharmacy 10/19/19 Crm Developer Relationship Specialty Start Date End Date Stas Mora MD [address] [place] [address] PCP - General 08/02/08, Pharmacist [address] [place] [address] Pharmacist Pharmacy 10/19/19 Crm Developer Relationship Specialty Start Date End Date Stas Mora MD [address] [place] [address] PCP - General 08/02/08, Pharmacist [address] [place] [address] Pharmacist Pharmacy 10/19/19 Team Status: Active Member Role Status Dates Dr. Stas Mora MD Family Provider Active Dr. Stas Mora MD Primary Care Provider Active Team Status: Inactive Member Role Status Dates Dr. Stas Mora MD Primary Care Provider Active Dr. Brian Cunningham DO Emergency Provider Active Crm Developer Relationship Specialty Start Date End Date Stas Mora MD [address] [place] [address] PCP - General 08/02/08, Pharmacist [address] [place] [address] Pharmacist Pharmacy 10/19/19 Crm Developer Relationship Specialty Start Date End Date Stas Mora MD [address] [facility] [place] [address] PCP - General 08/02/08, Pharmacist [address] [place] [address] Pharmacist Pharmacy 10/19/19 Crm Developer Relationship Specialty Start Date End Date Stas Mora MD [address] [place] [address] PCP - General 08/02/08, Pharmacist [address] [place] [address] Pharmacist Pharmacy 10/19/19 Crm Developer Relationship Specialty Start Date End Date Stas Mora MD [address] [place] [address] PCP - General 08/02/08, Pharmacist [address] [place] [address] Pharmacist Pharmacy 10/19/19 Crm Developer Relationship Specialty Start Date End Date Stas Mora MD [address] [place] [address] PCP - General 08/02/08, Pharmacist [address] [place] [address] Pharmacist Pharmacy 10/19/19 Crm Developer Relationship Specialty Start Date End Date Stas Mora MD [address] [facility] [place] [address] PCP - General 08/02/08, Pharmacist [address]897 [place] [address] Pharmacist Pharmacy 10/19/19 Crm Developer Relationship Specialty Start Date End Date Stas Mora MD [address] [facility] [place] [address] PCP - General 08/02/08, Pharmacist [address]92 [place] [address] Pharmacist Pharmacy 10/19/19 Crm Developer Relationship Specialty Start Date End Date Stas Mora MD [address] [facility] [place] [address] PCP - General 08/02/08, Pharmacist [address] [place] [address] Pharmacist Pharmacy 10/19/19 Crm Developer Relationship Specialty Start Date End Date Stas Mora MD [address] [place] [address] PCP - General 08/02/08, Pharmacist [address]206 [place] [address] Pharmacist Pharmacy 10/19/19 Crm Developer Relationship Specialty Start Date End Date Stas Mora MD [address] [place] [address] PCP - General 08/02/08, Pharmacist [address] [place] [address] Pharmacist Pharmacy 10/19/19 Crm Developer Relationship Specialty Start Date End Date Stas Mora MD [address] [place] [address] PCP - General 08/02/08, Pharmacist [address]287 [place] [address] Pharmacist Pharmacy 10/19/19 Crm Developer Relationship Specialty Start Date End Date Stas Mora MD [address] [place] [address] PCP - General 08/02/08, Pharmacist [address] [place] [address] Pharmacist Pharmacy 10/19/19 Crm Developer Relationship Specialty Start Date End Date Stas Mora MD [address] [place] [address] PCP - General 08/02/08, Pharmacist [address] [place] [address] Pharmacist Pharmacy 10/19/19 Crm Developer Relationship Specialty Start Date End Date Stas Mora MD [address] [place] [address] PCP - General 08/02/08, Pharmacist [address] [place] [address] Pharmacist Pharmacy 10/19/19 Crm Developer Relationship Specialty Start Date End Date Stas Mora MD [address] [place] [address] PCP - General 08/02/08, Pharmacist [address] [place] [address] Pharmacist Pharmacy 10/19/19 Crm Developer Relationship Specialty Start Date End Date Stas Mora MD [address] [place] [address] PCP - General 08/02/08, Pharmacist [address] [place] [address] Pharmacist Pharmacy 10/19/19 Crm Developer Relationship Specialty Start Date End Date Stas Mora MD [address] [place] [address] PCP - General 08/02/08, Pharmacist [address] [place] [address] Pharmacist Pharmacy 10/19/19 Crm Developer Relationship Specialty Start Date End Date Stas Mora MD [address] [facility] [place] [address] PCP - General 08/02/08, Pharmacist [address] [place] [address] Pharmacist Pharmacy 10/19/19 Crm Developer Relationship Specialty Start Date End Date Stas Mora MD [address] [place] [address] PCP - General 08/02/08, Pharmacist [address] [place] [address] Pharmacist Pharmacy 10/19/19 Crm Developer Relationship Specialty Start Date End Date Stas Mora MD [address] [place] [address] PCP - General 08/02/08, Pharmacist [address] [place] [address] Pharmacist Pharmacy 10/19/19 Crm Developer Relationship Specialty Start Date End Date Stas Mora MD [address] [place] [address] PCP - General 08/02/08, Pharmacist [address] [place] [address] Pharmacist Pharmacy 10/19/19 Crm Developer Relationship Specialty Start Date End Date Stas Mora MD [address] [place] [address] PCP - General 08/02/08, Pharmacist [address] [place] [address] Pharmacist Pharmacy 10/19/19 Jenna Fitzpatrick APRN.HEDGE FUND ACCOUNTANT [address] [place] [address] Explosive Operator Supervisor Family Medicine 02/28/24 Crm Developer Relationship Specialty Start Date End Date Stas Mora MD [address] [place] [address] PCP - General 08/02/08, Pharmacist [address] [place] [address] Pharmacist Pharmacy 10/19/19 Jenna Fitzpatrick APRN.HEDGE FUND ACCOUNTANT [address] [place] [address] Explosive Operator Supervisor Family Medicine 02/28/24 Elvis Kearney APRN.HEDGE FUND ACCOUNTANT [address] [place] [address] Explosive Operator [facility] 03/08/24 Crm Developer Relationship Specialty Start Date End Date Stas Mora MD [address] [place] [address] PCP - General 08/02/08, Pharmacist [address] [place] [address] Pharmacist Pharmacy 10/19/19 Jenna Fitzpatrick APRN.HEDGE FUND ACCOUNTANT [address] [place] [address] Explosive Operator Supervisor Family Medicine 02/28/24 Elvis Kearney APRN.HEDGE FUND ACCOUNTANT [address] [place] [address] Explosive Operator Supervisor Family Medicine 03/08/24 Crm Developer Relationship Specialty Start Date End Date Stas Mora MD [address] [facility] [place] [address] PCP - General 08/02/08, Pharmacist [address] [place] [address] Pharmacist Pharmacy 10/19/19 Jenna Fitzpatrick DIRECTIONAL BORE OPERATOR.HEDGE FUND ACCOUNTANT [address] [place] [address] Explosive Operator Supervisor Family Medicine 02/28/24 Elvis Kearney DIRECTIONAL BORE OPERATOR.HEDGE FUND ACCOUNTANT [address] [place] [address] Explosive Operator Supervisor Family Medicine 03/08/24 Crm Developer Relationship Specialty Start Date End Date Stas Mora MD [address] [place] [address] PCP - General 08/02/08, Pharmacist [address] [place] [address] Pharmacist Pharmacy 10/19/19 Jenna Fitzpatrick, DIRECTIONAL BORE OPERATOR.HEDGE FUND ACCOUNTANT [address] [place] [address] Explosive Operator Supervisor Family Medicine 02/28/24 Elvis Kearney DIRECTIONAL BORE OPERATOR.HEDGE FUND ACCOUNTANT [address] [facility] [place] [address] Explosive Operator Supervisor Family Medicine 03/08/24 Crm Developer Relationship Specialty Start Date End Date Stas Mora MD [address] [place] [address] PCP - General 08/02/08, Pharmacist [address] [place] [address] Pharmacist Pharmacy 10/19/19 Jenna Fitzpatrick APRN.HEDGE FUND ACCOUNTANT [address] [place] [address] Explosive Operator Supervisor Family [facility] 02/28/24 Elvis Kearney APRN.HEDGE FUND ACCOUNTANT [address] [place] [address] Explosive Operator Supervisor [facility] [place] 03/08/24 Crm Developer Relationship Specialty Start Date End Date Stas Mora MD [address] [place] [address] PCP - General 08/02/08, Pharmacist [address] [place] [address] Pharmacist Pharmacy 10/19/19 Jenna Fitzpatrick APRN.HEDGE FUND ACCOUNTANT [address] [place] [address] Explosive Operator [facility] 02/28/24 Elvis Kearney APRN.HEDGE FUND ACCOUNTANT [address] [place] [address] Explosive Operator [facility] 03/08/24 Crm Developer Relationship Specialty Start Date End Date Stas Mora MD [address] [place] [address] PCP - General 08/02/08, Pharmacist [address] [place] [address] Pharmacist Pharmacy 10/19/19 Jenna Fitzpatrick APRN.HEDGE FUND ACCOUNTANT [address] [place] [address] Explosive Operator Supervisor Family Medicine 02/28/24 Elvis Kearney APRN.HEDGE FUND ACCOUNTANT [address] [facility] [place] [address] Explosive Operator Supervisor Family Medicine 03/08/24 Crm Developer Relationship Specialty Start Date End Date Stas Mora MD [address] [place] [address] PCP - General 08/02/08, Pharmacist [address] [place] [address] Pharmacist Pharmacy 10/19/19 Jenna Fitzpatrick APRN.HEDGE FUND ACCOUNTANT [address] [place] [address] Explosive Operator Supervisor Family Medicine 02/28/24 Elvis Kearney APRN.HEDGE FUND ACCOUNTANT [address] [place] [address] Explosive Operator Supervisor [facility] [place] 03/08/24 Crm Developer Relationship Specialty Start Date End Date Stas Mora MD [address] [place] [address] PCP - General 08/02/08, Pharmacist [address] [place] [address] Pharmacist Pharmacy 10/19/19 Jenna Fitzpatrick DIRECTIONAL BORE OPERATOR.HEDGE FUND ACCOUNTANT [address] [facility] [place] [address] Explosive Operator Supervisor Family Medicine 02/28/24 Elvis Kearney APRN.HEDGE FUND ACCOUNTANT [address] [facility] [place] [address] Explosive Operator Supervisor Family Medicine 03/08/24 Crm Developer Relationship Specialty Start Date End Date Stas Mora MD [address] [place] [address] PCP - General 08/02/08, Pharmacist [id number] [place] [address] Pharmacist Pharmacy 10/19/19 Jenna Fitzpatrick APRN.HEDGE FUND ACCOUNTANT [address] [place] [address] Explosive Operator Supervisor Family Medicine 02/28/24 Elvis Kearney DIRECTIONAL BORE OPERATOR.HEDGE FUND ACCOUNTANT [address] [place] [address] Explosive Operator Supervisor [facility] 03/08/24 Crm Developer Relationship Specialty Start Date End Date Stas Mora MD [address] [place] [address] PCP - General 08/02/08, Pharmacist [id number] [place] [address] Pharmacist Pharmacy 10/19/19 Jenna Fitzpatrick DIRECTIONAL BORE OPERATOR.HEDGE FUND ACCOUNTANT [address] [place] [address] Explosive Operator Supervisor Family Medicine 02/28/24 Elvis Kearney, DIRECTIONAL BORE OPERATOR.HEDGE FUND ACCOUNTANT [address] [place] [address] Explosive Operator Supervisor Family Medicine 03/08/24 Crm Developer Relationship Specialty Start Date End Date Stas Mora MD [address] [place] [address] PCP - General 08/02/08, Pharmacist [id number] [place] [address] Pharmacist Pharmacy 10/19/19 Jenna Fitzpatrick APRN.HEDGE FUND ACCOUNTANT [address] [place] [address] Explosive Operator Supervisor Family Medicine 02/28/24 Elvis Kearney APRN.HEDGE FUND ACCOUNTANT [address] [place] [address] Explosive Operator Supervisor Family Medicine 03/08/24 Crm Developer Relationship Specialty Start Date End Date Stas Mora MD [address] [place] [address] PCP - General 08/02/08, Pharmacist [address] [place] [address] Pharmacist Pharmacy 10/19/19 Jenna Fitzpatrick DIRECTIONAL BORE OPERATOR.HEDGE FUND ACCOUNTANT [address] [place] [address] Explosive [facility] 02/28/24 Elvis Kearney DIRECTIONAL BORE OPERATOR.HEDGE FUND ACCOUNTANT [address] [place] [address] [facility] 03/08/24 Crm Developer Relationship Specialty Start Date End Date Stas Mora MD [address] [place] [address] PCP - General 08/02/08, Pharmacist [address] [place] [address] Pharmacist Pharmacy 10/19/19 Jenna Fitzpatrick DIRECTIONAL BORE OPERATOR.HEDGE FUND ACCOUNTANT [address] [place] [address] Explosive Operator Supervisor Family Medicine 02/28/24 Elvis Kearney DIRECTIONAL BORE OPERATOR.HEDGE FUND ACCOUNTANT [address] [place] [address] Explosive Operator Supervisor Family Medicine 03/08/24 Crm Developer Relationship Specialty Start Date End Date Stas Mora MD [address] [place] [address] PCP - General 08/02/08, Pharmacist [id number] [place] [address] Pharmacist Pharmacy 10/19/19 Jenna Fitzpatrick DIRECTIONAL BORE OPERATOR.HEDGE FUND ACCOUNTANT [address] [place] [address] Explosive Operator Supervisor Family Medicine 02/28/24 Elvis Kearney DIRECTIONAL BORE OPERATOR.HEDGE FUND ACCOUNTANT [address] [place] [address] Explosive Operator [facility] 03/08/24 Crm Developer Relationship Specialty Start Date End Date Stas Mora MD [address] [place] [address] PCP - General 08/02/08, Pharmacist [id number] [place] [address] Pharmacist Pharmacy 10/19/19 Jenna Fitzpatrick DIRECTIONAL BORE OPERATOR.HEDGE FUND ACCOUNTANT [address] [place] [address] Explosive Operator Supervisor Family Medicine 02/28/24 Elvis Kearney DIRECTIONAL BORE OPERATOR.HEDGE FUND ACCOUNTANT [address] [place] [address] Explosive Operator Supervisor [facility] Medicine 03/08/24 Crm Developer Relationship Specialty Start Date End Date Stas Mora MD [address] [place] [address] PCP - General 08/02/08, Pharmacist [address] [place] [address] Pharmacist Pharmacy 10/19/19 Elvis Kearney APRN.HEDGE FUND ACCOUNTANT [address] [facility] [place] [address] Explosive Operator [facility] 03/08/24 Crm Developer Relationship Specialty Start Date End Date Stas Mora MD [address] [facility] [place] [address] PCP - General 08/02/08, Pharmacist [phone] [place] [address] Pharmacist Pharmacy 10/19/19 Elvis Kearney APRN.HEDGE FUND ACCOUNTANT [address] [facility] [place] [address] [facility] 03/08/24 Team Status: Active Member Role Status [...] Provider Active Sta rt: September 06, 2024 Crm Developer Relationship Specialty Start Date End Date Stas Mora MD [address] [place], [place] [id number] PCP - General 08/02/08, Pharmacist [id number] [place], [place] [id number] Pharmacist Pharmacy 10/19/19 Elvis Kearney APRN.HEDGE FUND ACCOUNTANT [address] [place] [address] Explosive Operator Supervisor Family Medicine 03/08/24 Team Status: Active Member [...] Active St art: September 04, 2024 Dr. Ktahy Wells MD Attending Provider Active Start: September [...] 2024 End: September 07, 2024 Halina Carmona METAL ANNEALER, METAL ANNEALER-C Attending Provider Active Start: September 07, 2024 [...] 2024 End: September 08, 2024 Halina Carmona METAL ANNEALER, METAL ANNEALER-C Attending Provider Active Start: September 08, 2024 [...] 2024 End: September 30, 2024 Halina Carmona NP, METAL ANNEALER-C Attending Provider Active Start: September 30, 2024 [...] End: October 20, 2024 Halina Carmona NP, METAL ANNEALER-C Attending Provider Active Start: October 20, 2024 End: October 20, 2024 Team Status: Active Member Role/Relationship Status Dates Dr. Stas Mora MD Primary Care Provider Active Start: October 31, 2024 Shayy GAMA MD Attending Provider Active Start: October 31, 2024 Team Status: Inactive Member Role/Relationship Status Dates Dr. Stas Mora MD Primary Care Provider Active Start: September 20, 2024 End: September 20, 2024 Dr. Shayy Curtis MD Attending Provider Active Start: September 20, 2024 End: September 20, 2024 Team Status: Active Member Role/Relationship [...] Active Start: September 29, 2024 Team Status: Inactive Member Role/Relationship Status Dates Dr. Stas Mora MD Primary Care Provider Active Start: September 30, 2024 End: September 30, 2024 Halina Carmona METAL ANNEALER, METAL ANNEALER-C Attending Provider Active Start: September 30, 2024 [...] End: October 20, 2024 Halina Carmona NP, METAL ANNEALER-C Attending Provider Active Start: October 20, 2024 End: October 20, 2024 Team Status: Active Member Role/Relationship Status Dates Dr. Stas Mora MD Primary Care Provider Active Start: October 31, 2024 Shayy GAMA MD Attending Provider Active Start: October 31, 2024 Team Status: Active Member Role/Relationship Status Dates Dr. Stas Mora MD Primary Care Provider Active Start: November 02, 2024 Shayy GAMA MD Attending Provider Active Start: November 02, 2024 Team Status: Inactive Member Role/Relationship Status Dates Dr. Stas Mora MD Primary Care Provider Active Start: October 25, 2024 End: October 25, 2024 Dr. Shayy Curtis MD Attending Provider Active Start: October 25, 2024 End: October 25, 2024 Team Status: Active Member Role/Relationship Status Dates Dr. Stas Mora MD Primary Care Provider Active Start: October 31, 2024 Shayy GAMA MD Attending Provider Active Start: October 31, 2024 Team Status: Active Member Role/Relationship Status Dates Dr. Stas Mora MD Primary Care Provider Active Start: November 02, 2024 Shayy GAMA MD Attending Provider Active Start: November 02, 2024 Goals (unrecognized section and content) Goals [...] BE BASED ON THE PRIMARY CLINICAL RECORDS. [employer] provides no warranty or guarantee of the accuracy or completeness of information in this document.
[2024-11-23 07:37] LABS: Hematocrit 36.3 % (40-54); Hemoglobin 11.6 g/dL (13.0-16.5); Immature Granulocytes Count 0.020 X10^3/uL (0.0-0.0); Mean Corp Hgb Conc 32.0 g/dL (32-36); Mean Corpuscular Volume 82.1 fL (80-94); Mean Platelet Vol. 10.0 fl (6.2-12.0); NRBC Flagged by Analyzer 0 % (0-5); Platelet Count 245 K/mm3 (150-450); RBC Distribution Width CV 16.9 % (11.6-14.6); RBC Distribution Width SD 50.4 fl (35.1-43.9); Red Blood Count 4.42 M/mm3 (4.6-6.2); White Blood Count 6.6 K/mm3 (4.4-11.0)
[2024-11-23 07:54] LABS: Anion Gap 10 (5-15); BUN 16 mg/dL (4-19); BUN/Creat Ratio 23.9 RATIO (10-20); Calcium,Total 8.9 mg/dL (7.6-11.0); Carbon Dioxide 23.5 mmol/L (21.0-32.0); Chloride 105 mmol/L (98-108); Glucose 103 mg/dL (70-99); Potassium 4.0 mmol/L (3.3-5.1)
[2024-11-23 08:25] LABS: Prothrombin Time (Protime)PT. 17.9 SECONDS (11.7-14.9)
== END ==
LOC: OLS.WHLTSB 05:00
PROVIDERS: PCP Family Medicine; Visit Provider Internal Medicine
DX: I48.91 Unspecified atrial fibrillation (principal)
CPT/HCPCS: 36415; 80048; 85025; 85610

== ENCOUNTER → 2024-11-25 | Outpatient (REF) | payer MEDICARE, SELFPAY ==
--- OUTSIDE RECORDS SUMMARY | 2024-11-25 03:50 | XMS RPT_ITS | CCD ---
Author Organization [facility] Care Team Providers Care Air Conditioning Sheet Metal Installer Name Role Phone TEE, DARRELL E Unavailable Unavailable TEE, DARRELL E Unavailable Unavailable TEE DARRELL Unavailable Unavailable TEE DARRELL Unavailable Unavailable Stas Mora Unavailable Unavailable AISHA OLIVEIRANETH Unavailable Unavailable DARRELL OLIVEIRA Unavailable Unavailable Stas Mora Unavailable Unavailable Stas Mora MD Primary Care Provider 13, Pharmacist Unavailable Stas Mora MD Primary Care Provider 13, Pharmacist Unavailable Stas Mora MD Primary Care Provider Dr. Stas Moar Primary Care Provider [phone] Dr. Inderjit [...] Attending Unavailable Amari MORELOS.Jenna STATON Unavailable Caio SUPERVISOR AGENCY APPOINTMENTS.REPORT ANALYST, Elvis Unavailable AMELIA, LUCIANA C Referring Unavailable ELDERBROCK, STAS D Primary Care Unavailable Tannhof SUPERVISOR AGENCY APPOINTMENTS.REPORT ANALYST, Jenna Unavailable Unavail able Tannhof SUPERVISOR AGENCY APPOINTMENTS.REPORT ANALYST, Jenna Unavailable Morgan POLANCO, Dr. Ruiz Primary Care Provider Jose Miguel POLANCO, Dr. Jansen Emergency Provider Priscilla POLANCO, Dr. Kathy Bearden Admit Provider Priscilla POLANCO, Dr. Kathy Bearden Attending Provider Priscilla POLANCO, Dr. Kathy Bearden Other Provider Alberto POLANCO, Dr. Shoemaker Attending Provider Alberto POLANCO, Dr. Shoemaker Other Provider Ever POLANCO, Shayy Attending Provider Unavailaiyana Curtis MD, Shayy Referring Provider Unavailaiyana Carmona NP-CHalina Attending Provider Ever POLANCO, Dr. [...] Primary Care Unavailable ELDERSTAS GUTIERREZ Referring Unavailable ELDERSTAS GUTIERREZ Primary Care Unavailable ELDERSTAS GUTIERREZ Referring Unavailable ELDERSTAS GUTIERREZ Primary Care Unavailable STAS MORA Attending Unavailable STAS MORA Primary Care Unavailable STAS MORA Primary Care Unavailable STAS MORA Referring Unavailable ELDERSTAS GUTIERREZ Referring Unavailable ELDERSTAS GUTIERREZ Primary Care Unavailable GANTA, LUCIANA Referring Unavailable ELDERSTAS GUTIERREZ Primary Care Unavailable GANTA, LUCIANA Attending Unavailable STAS MORA Primary Care Unavailable ELDERSTAS GUTIERREZ Referring Unavailable Elderbrock, Stas Primary Care Unavailable Oleghe OLS, Efewongbe Attending Unavailabl e Oleghe OLS, Efewongbe Attending Unavailabl e Elderbrock, Stas Primary Care Unavailable Oleghe OLS, Efewongbe Attending Unavailabl e Elderbrock, Stas Primary Care Unavailable Oleghe, Efewongbe Attending Unavailable Elderbrock, Stas Primary Care Unavailable Oleghe OLS, Efewongbe Attending Unavailabl e Elderbrock, Stas Primary Care Unavailable Eldercristick, Stas Primary Care Unavailable Oleghe OLS, Efewongbe Attending Unavailabl e Oleghe OLS, Efewongbe Attending Unavailabl e Elderbrock, Stas Primary Care Unavailable Koram, Kathy Monisha Admitting Unavailable Koram, Kathy Monisha Consulting Unavailable Alberto, Navid Attending Unavailable Elderbrock, Stas Primary Care Unavailable Oleghe OLS, Efewongbe Attending Unavailabl e Elderbrock, Stas Primary Care Unavailable Oleghe, Efewongbe Attending Unavailable Elderbrock, Stas Primary Care Unavailable Elderbrock, Stas Primary Care Unavailable Kristine HEATER WORKER, Halina Attending Unavailable Elderbrock, Stas Primary Care Unavailable Kristine HEATER WORKER, Halina Attending Unavailable Elderbrock, Stas Primary Care [...] Navid Attending Unavailable Alberto, Navid Consulting Unavailable Eldertres pinos, Stas Primary Care Unavailable Kristine HEATER WORKER, Halina Attending Unavailable Elderbrock, Stas Primary Care Unavailable Shailaton HEATER WORKER, Halina Attending Unavailable Elderbrock, Stas Primary Care Unavailable Oleghe OLS, Efewongbe Attending Unavailabl e Elderbrock, Stas Primary Care Unavailable Oleghe OLS, Efewongbe Attending Unavailabl e Koram, Kathy Monisha Admitting Unavailable Koram, Kathy Monisha Attending Unavailable Koram, Kathy Monisha Consulting Unavailable [facility], Stas Primary Care Unavailable Oleghe OLS, Efewongbe Attending Unavailabl e Oleghe OLS, Efewongbe Referring Unavailabl e [facility], Stas Primary Care Unavailable Medications Current Medications Medication [...] unspecified vessel or lesion type, unspecified whether [place] or transplanted heart Take 1 tablet by [...] daily. memantine hydrochloride 10 mg oral tablet (20 sources) [id number] Receptor Antagonist Start: 06-02-19 End: 11-29-19 take [...] Date: 01/01/06 Status: Ordered polyethylene glycol 3350 20653 mg powder for oral solution (9 sources) Osmotic Laxative Start: 09-07-19 Polyethylene Glycol 3350 (Miralax) 17 gram/dose powder Active 17 g PO DAILY 510 30 0 September 06, 2024 12:00am 24 hr rivastigmine 0.192 mg/hr transdermal system (14 sources) Start: 09-02-19 Rivastigmine 4.6 mg/24 hour [...] on above: Take 1 capsule by mo [facility] daily at bedtime. vardenafil 10 mg oral [...] disease (20 sources) Atherosclerotic heart disease of [place] coronary artery without angina pectoris; Translations: [Coronary atherosclerosis] Onset: 10-07-2005 06-26-2017 Chronic Delirium, dementia, and amnestic and other cognitive disorders (16 sources) Vascular dementia ; Translations: [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, psychotic disturbance, mood disturbance, or anxiety (HCC)] Onset: 04-27-2024 08-14-2023 Chronic Diabetes mellitus without complication (13 sources) Hyperglycemia; Translations: [Hyperglycemia, unspecified] 02-19-2021 Episodic Disorders of lipid metabolism (20 sources) Dyslipidemia; Translations: [Hyperlipidemia, unspecified] Onset: 08-26-2022 Chronic E Codes: Fall (20 sources) Fall; Translations: [Unspecified fall, initial encounter] Onset: 09-06-2024 09-01-2024 Episodic Essential hypertension (20 sources) Benign essential hypertension; Translations: [Essential (primary) hypertension] Onset: 10-07-2005 10-07-2005 Chronic Fluid and electrolyte disorders (13 sources) Lactic acidosis; Translations: [Acidosis] 02-19-2021 Episodic Genitourinary symptoms and ill-defined conditions (1 source) Increased frequency of urination; Translations: [Frequency of micturition] 11-26-2023 Episodic Late effects of cerebrovascular disease (3 sources) Sequela of cerebrovascular accident; Translations: [Unspecified sequelae of cerebral infarction] 06-01-2023 Chronic Malaise and fatigue (12 sources) Asthenia; Translations: [Weakness] 02-10-2023 Episodic Open wounds of head; neck; and trunk (1 source) Laceration of head; Translations: [Laceration without foreign body of other part of head, initial encounter] Onset: 11-17-2022 Episodic Osteoarthritis (20 sources) Localized, primary osteoarthritis; Translations: [Unilateral primary osteoarthritis, unspecified knee] Onset: 10-07-2005 10-07-2005 Chronic Other aftercare (20 sources) Long-term current use of anticoagulant; Translations: [watermaster (current) 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] Onset: 09-22-2016 Episodic Other aftercare (4 sources) Patient encounter status; Translations: [Encounter for therapeutic drug level monitoring] Episodic Other aftercare (1 source) Post-discharge follow-up; Translations: [Encounter for follow-up examination after completed treatment for conditions other than malignant neoplasm] Episodic Other circulatory disease (20 sources) H/O: atrial fibrillation; Translations: [Personal history of other diseases of the circulatory system] 09-01-2024 Episodic Other circulatory disease (20 sources) History of transient ischemic attack; Translations: [...] [Unspecified injury of head, initial encounter] Onset: 08-28-2023 Episodic Other nervous system disorders (1 source) Walking disability; Translations: [Difficulty in walking, not elsewhere classified] 04-27-2024 Chronic Other nervous system disorders (1 source) Vascular parkinsonism; 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 Other nervous system disorders (20 sources) Unable to walk; Translations: [Difficulty in [...] Episodic Other nutritional; endocrine; and metabolic disorders (20 sources) Adult failure to thrive syndrome; Translations: [Adult failure to thrive] 09-01-2024 Episodic Other nutritional; endocrine; and metabolic disorders (1 source) Adult failure to thrive; Translations: [Adult failure to thrive] Onset: 09-06-2024 Episodic Pneumonia (except that caused by tuberculosis or sexually transmitted disease) (13 sources) Community acquired pneumonia; Translations: [Pneumonia, unspecified organism] 02-10-2021 Episodic Residual codes; unclassified (3 sources) Bilateral lower leg edema; Translations: [Localized edema] 09-15-2023 Episodic Residual codes; unclassified (1 source) Hallucinations; Translations: [Hallucinations, unspecified] 08-31-2024 Episodic Screening and history of mental health and substance abuse codes (20 sources) H/O: dementia; Translations: [Personal history of other mental and behavioral disorders] Onset: 08-31-2024 09-01-2024 Episodic Spondylosis; intervertebral disc disorders; other back problems (1 source) Acute low back pain; Translations: [Acute right-sided low back pain, unspecified whether sciatica present] 03-12-2020 Episodic Superficial injury; contusion (20 sources) Contusion of hip; Translations: [Contusion of unspecified hip, initial encounter] Onset: 09-06-2024 09-01-2024 Episodic Syncope (13 sources) Syncope; Translations: [Syncope and collapse] 09-08-2016 Episodic Thyroid disorders (1 source) Thyroid nodule; Translations: [Nontoxic single thyroid nodule] Chronic Transient cerebral ischemia (16 sources) Transient cerebral ischemia; Translations: [Transient cerebral [...] 04-24-2011 04-24-2011 Episodic Other aftercare (3 sources) watermaster (current) 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; Translations: [Long-term (current) [...] lymphocyte countOrd ered By: Shayy Curtis on 11-23-2024 Lymphocytes Auto (Unsp spec) [#/Vol] 1.15 10*3/uL 0.83-4.51 [facility] [place] Absolute neutrophil countOrd ered By: Shayy Curtis on 11-23-2024 Neutrophils (Bld) [#/Vol] 4.4 10*3/uL 2.0-7.7 [facility] [place] Automated lymphocyte count a s percentage of total leukocytesOrdered By: Shayy Curtis on 11-23-2024 Lymphocytes/100 WBC Auto (Unsp spec) 17.5 % Low 19-41 [facility] [place] Basophil percentageOrdered B y: baldomero Curtis on 11-23-2024 Basophils/100 WBC (Bld) 0.9 % 0-1 [facility] [place] Eosinophil percentageOrdered By: [facility] Sal[facility]ad[facility] on 11-23-2024 Eosinophils/100 WBC (Bld) 2.9 % 0-5 [facility] [place] Erythrocyte distribution wid th ratioOrdered By: baldomero Salazarradha on 11-23-2024 Erythrocyte distribution width (RBC) [Ratio] 16.9 % High 11.6-14.6 [facility] [place] Erythrocyte distribution wid th standard deviationOrdered By: baldomero Curtis on 11-23-2024 Erythrocyte distribution width (RBC) [Ratio] 50.4 fl High 35.1-43.9 [facility] [place] Hematocrit Auto (Bld) [Volum e fraction]Ordered By: Shayy Curtis on 11-23-2024 Hematocrit (Bld) [Volume fraction] 36.3 % Low 40-54 [facility] [place] Hemoglobin measurementOrdere d By: [facility] Curtis on 11-23-2024 Hemoglobin (Bld) [Mass/Vol] 11.6 g/dL Low 13.0-16.5 [facility] [place] Immature granulocytes/100 WB C Auto (Bld)Ordered By: [facility] Curtis on 11-23-2024 Immature granulocytes/100 WBC (Bld) 0.300 % 0.0-0.9 [facility] [place] Comment on above: IG% - Immature Granu locytes (promyelocytes, myelocytes and metamyelocytes) > 1% indicates that a LEFT SHIFT is Present. MCV (mean corpuscular volume ) determinationOrdered By: hollieforest groveirlanda Curtis on 11-23-2024 MCV (RBC) [Entitic vol] 82.1 fL 80-94 [facility] [place] Mean corpuscular hemoglobin (MCH) determinationOrdered By: hollieforest groveirlanda Curtis on 11-23-2024 MCH (RBC) [Entitic mass] 26.2 pg Low 27.0-32.0 [facility] [place] Mean corpuscular hemoglobin concentration (MCHC) determinationOrdered By: hollieforest groveirlanda Curtis on 11-23-2024 MCHC (RBC) [Mass/Vol] 32.0 g/dL 32-36 [facility] Mean platelet volume determi nationOrdered By: [facility] Curtis on 11-23-2024 Platelet mean volume (Bld) [Entitic vol] 10.0 fL 6.2-12.0 [facility] [place] Monocyte percentageOrdered B y: Shayy Curtis on 11-23-2024 Monocytes/100 WBC (Bld) 11.3 % High 0-10 [facility] [place] Neutrophil percentageOrdered By: baldomero Curtis on 11-23-2024 Neutrophils/100 WBC (Bld) 67.1 % 47-70 [facility] [place] Nucleated red blood cell per centageOrdered By: Shayy Curtis on 11-23-2024 Nucleated RBC/100 WBC (Bld) [Ratio] 0 % 0-5 [facility] [place] Platelet countOrdered By: Hung Curtis on 11-23-2024 Platelets (Bld) [#/Vol] 245 10*3/uL 150-450 [facility] [place] RBC Auto (Bld) [#/Vol]Ordere d By: Shayy Curtis on 11-23-2024 RBC (Bld) [#/Vol] 4.42 10*6/uL Low 4.6-6.2 [facility] White blood cell (WBC) count Ordered By: Shayy Curtis on 11-23-2024 WBC (Bld) [#/Vol] 6.6 10*3/uL 4.4-11.0 [facility] Absolute lymphocyte countOrd ered By: Shayy Curtis on 11-02-2024 Lymphocytes Auto (Unsp spec) [#/Vol] 1.10 10*3/uL 0.83-4.51 [facility] [place] Absolute neutrophil countOrd ered By: Shayy Curtis on 11-02-2024 Neutrophils (Bld) [#/Vol] 6.2 10*3/uL 2.0-7.7 [facility] [place] Anion gap in Serum or Plasma Ordered By: Shayy Curtis on 11-02-2024 Anion gap [Moles/Vol] 10 mmol/L 5-15 [facility] Automated lymphocyte count a s percentage of total leukocytesOrdered By: Shayy Curtis on 11-02-2024 Lymphocytes/100 WBC Auto (Unsp spec) 13.5 % Low 19-41 [facility] [place] BUN/creatinine ratioOrdered By: Shayy Curtis on 11-02-2024 Urea nitrogen/Creatinine [Mass ratio] 30.4 mg/mg High 10-20 [facility] [place] Basophil percentageOrdered B y: Shayy Curtis on 11-02-2024 Basophils/100 WBC (Bld) 0.5 % 0-1 [facility] [place] Carbon dioxide, total [Moles /volume] in Central venous bloodOrdered By: Shayy Curtis on 11-02-2024 CO2 [Moles/Vol] 22.3 mmol/L 21.0-32.0 [facility] [place] Chloride assayOrdered By: Hung Curtis on 11-02-2024 Chloride [Moles/Vol] 106 mmol/L 98-108 [facility] Eosinophil percentageOrdered By: Shayy Curtis on 11-02-2024 Eosinophils/100 WBC (Bld) 1.4 % 0-5 [facility] [place] Erythrocyte distribution wid th ratioOrdered By: baldomero Curtis on 11-02-2024 Erythrocyte distribution width (RBC) [Ratio] 18.0 % High 11.6-14.6 [facility] [place] Erythrocyte distribution wid th standard deviationOrdered By: Latriceforest groveirlanda Curtis on 11-02-2024 Erythrocyte distribution width (RBC) [Ratio] 53.7 fl High 35.1-43.9 [facility] [place] Glomerular filtration rate ( GFR) estimation/1.73 sq m using serum, plasma, or whole bOrdered By: Shayy Curtis on 11-02-2024 GFR/1.73 sq M.predicted among non-blacks MDRD (S/P/Bld) [Vol rate/Area] 91 mL/min/{1.73_m2} >60 [facility] [place] Comment on above: mL/min/1.73m2 CKD-EP I Creatinine Equation (2020) Hematocrit Auto (Bld) [Volum e fraction]Ordered By: Shayy Curtis on 11-02-2024 Hematocrit (Bld) [Volume fraction] 35.3 % Low 40-54 [facility] [place] Hemoglobin measurementOrdere d By: Shayy Curtis on 11-02-2024 Hemoglobin (Bld) [Mass/Vol] 11.2 g/dL Low 13.0-16.5 [facility] [place] Immature granulocytes/100 WB C Auto (Bld)Ordered By: Shayy Curtis 11-02-2024 Immature granulocytes/100 WBC (Bld) 0.400 % 0.0-0.9 [facility] [place] Comment on above: IG% - Immature Granu locytes (promyelocytes, myelocytes and metamyelocytes) > 1% indicates that a LEFT SHIFT is Present. MCV (mean corpuscular volume ) determinationOrdered By: Shayy Curtis on 11-02-2024 MCV (RBC) [Entitic vol] 81.5 fL 80-94 [facility] [place] Mean corpuscular hemoglobin (MCH) determinationOrdered By: Shayy Curtis on 11-02-2024 MCH (RBC) [Entitic mass] 25.9 pg Low 27.0-32.0 [facility] [place] Mean corpuscular hemoglobin concentration (MCHC) determinationOrdered By: Shayy Curtis on 11-02-2024 MCHC (RBC) [Mass/Vol] 31.7 g/dL Low 32-36 [facility] Mean platelet volume determi nationOrdered By: Shayy Curtis on 11-02-2024 Platelet mean volume (Bld) [Entitic vol] 10.3 fL 6.2-12.0 [facility] [place] Monocyte percentageOrdered B y: Shayy Curtis on 11-02-2024 Monocytes/100 WBC (Bld) 7.7 % 0-10 [facility] [place] Neutrophil percentageOrdered By: Shayy Curtis on 11-02-2024 Neutrophils/100 WBC (Bld) 76.5 % High 47-70 [facility] [place] Nucleated red blood cell per centageOrdered By: Shayy Curtis on 11-02-2024 Nucleated RBC/100 WBC (Bld) [Ratio] 0 % 0-5 [facility] [place] Platelet countOrdered By: Hung Curtis on 11-02-2024 Platelets (Bld) [#/Vol] 225 10*3/uL 150-450 [facility] [place] Potassium measurement (mass/ volume)Ordered By: Shayy Curtis on 11-02-2024 Potassium (Unsp spec) [Mass/Vol] 3.9 mmol/L 3.3-5.1 [facility] [place] RBC Auto (Bld) [#/Vol]Ordere d By: Shayy Curtis on 11-02-2024 RBC (Bld) [#/Vol] 4.33 10*6/uL Low 4.6-6.2 [facility] Serum creatinine measurement (mass/volume)Ordered By: Shayy Curtis on 11-02-2024 Creatinine [Mass/Vol] 0.62 mg/dL Low 0.70-1.20 [facility] Serum glucose measurement (m ass/volume)Ordered By: Shayy Curtis on 11-02-2024 Glucose [Mass/Vol] 110 mg/dL High 70-99 [facility] Serum or plasma calcium alvaro urement (mass/volume)Ordered By: Shayy Curtis on 11-02-2024 Calcium [Mass/Vol] 8.7 mg/dL 7.6-11.0 [facility] Serum or plasma urea nitroge n measurement (mass/volume)Ordered By: Shayy Curtis on 11-02-2024 Urea nitrogen [Mass/Vol] 19 mg/dL 4-19 [facility] [place] Sodium levelOrdered By: Latrice simonmaira Ever on 11-02-2024 Sodium [Moles/Vol] 139 mmol/L 133-145 [facility] White blood cell (WBC) count Ordered By: Shayy Curtis on 11-02-2024 WBC (Bld) [#/Vol] 8.1 10*3/uL 4.4-11.0 [facility] International normalized rat io (INR) measurement by fingerstickOrdered By: Shayy Curtis on 10-31-2024 INR Coag (BldC) [Relative time] 1.8 [facility] [place] Comment on above: Critical Value > 4.0 Whole blood prothrombin time Ordered By: Shayy Curtis on 10-31-2024 PT Coag (Bld) [Time] 20.2 s High 11.7-14.9 [facility] normalized rat io (INR) measurement by fingerstickOrdered By: Shayy Curtis on 10-06-2024 INR Coag (BldC) [Relative time] 2.1 [facility] [place] Comment on above: Critical Value > 4.0 Whole blood prothrombin time Ordered By: Shayy Curtis on 10-06-2024 PT Coag (Bld) [Time] 22.6 s High 11.7-14.9 [facility] Absolute lymphocyte countOrd ered By: Shayy Curtis on 10-05-2024 Lymphocytes Auto (Unsp spec) [#/Vol] 1.54 10*3/uL 0.83-4.51 [facility] [place] Absolute neutrophil countOrd ered By: Efhollieongirlanda Bernale on 10-05-2024 Neutrophils (Bld) [#/Vol] 4.2 10*3/uL 2.0-7.7 [facility] [place] Anion gap in Serum or Plasma Ordered By: Shayy Curtis on 10-05-2024 Anion gap [Moles/Vol] 10 mmol/L 5-15 [facility] Automated lymphocyte count a s percentage of total leukocytesOrdered By: Shayy Curtis on 10-05-2024 Lymphocytes/100 WBC Auto (Unsp spec) 23.8 % 19-41 [facility] [place] BUN/creatinine ratioOrdered By: Latriceongirlanda Bernale on 10-05-2024 Urea nitrogen/Creatinine [Mass ratio] 18.2 mg/mg 10-20 [facility] [place] Basophil percentageOrdered B y: Shayy Bernale on 10-05-2024 Basophils/100 WBC (Bld) 0.6 % 0-1 [facility] [place] Carbon dioxide, total [Moles /volume] in Central venous bloodOrdered By: Shayy Curtis on 10-05-2024 CO2 [Moles/Vol] 24.6 mmol/L 21.0-32.0 [facility] [place] Chloride assayOrdered By: Ef hollieongirlanda Curtis on 10-05-2024 Chloride [Moles/Vol] 106 mmol/L 98-108 [facility] Eosinophil percentageOrdered By: Christinebe Gabee on 10-05-2024 Eosinophils/100 WBC (Bld) 1.9 % 0-5 [facility] [place] Erythrocyte distribution wid th ratioOrdered By: Efhollieongbe Martinghe on 10-05-2024 Erythrocyte distribution width (RBC) [Ratio] 18.2 % High 11.6-14.6 [facility] [place] Erythrocyte distribution wid th standard deviationOrdered By: Efbaldomero Curtis on 10-05-2024 Erythrocyte distribution width (RBC) [Ratio] 52.4 fl High 35.1-43.9 [facility] [place] Glomerular filtration rate ( GFR) estimation/1.73 sq m using serum, plasma, or whole bOrdered By: Shayy Curtis on 10-05-2024 GFR/1.73 sq M.predicted among non-blacks MDRD (S/P/Bld) [Vol rate/Area] 87 mL/min/{1.73_m2} >60 [facility] [place] Comment on above: mL/min/1.73m2 CKD-EP I Creatinine Equation (2020) Hematocrit Auto (Bld) [Volum e fraction]Ordered By: Shayy Curtis on 10-05-2024 Hematocrit (Bld) [Volume fraction] 35.0 % Low 40-54 [facility] [place] Hemoglobin measurementOrdere d By: Shayy Curtis on 10-05-2024 Hemoglobin (Bld) [Mass/Vol] 11.0 g/dL Low 13.0-16.5 [facility] [place] Immature granulocytes/100 WB C Auto (Bld)Ordered By: baldomero Curtis 10-05-2024 Immature granulocytes/100 WBC (Bld) 0.300 % 0.0-0.9 [facility] [place] Comment on above: IG% - Immature Granu locytes (promyelocytes, myelocytes and metamyelocytes) > 1% indicates that a LEFT SHIFT is Present. MCV (mean corpuscular volume ) determinationOrdered By: Shayy Curtis 10-05-2024 MCV (RBC) [Entitic vol] 78.8 fL Low 80-94 [facility] [place] Mean corpuscular hemoglobin (MCH) determinationOrdered By: baldomero Curtis 10-05-2024 MCH (RBC) [Entitic mass] 24.8 pg Low 27.0-32.0 [facility] [place] Mean corpuscular hemoglobin concentration (MCHC) determinationOrdered By: Shayy Curtis 10-05-2024 MCHC (RBC) [Mass/Vol] 31.4 g/dL Low 32-36 [facility] Mean platelet volume determi nationOrdered By: Shayy Curtis 5 Platelet mean volume (Bld) [Entitic vol] 10.3 fL 6.2-12.0 [facility] [place] Monocyte percentageOrdered B y: Shayy Curtis on 10-05-2024 Monocytes/100 WBC (Bld) 8.5 % 0-10 [facility] [place] Neutrophil percentageOrdered By: Shayy Curtis on 10-05-2024 Neutrophils/100 WBC (Bld) 64.9 % 47-70 [facility] [place] Nucleated red blood cell per centageOrdered By: Shayy Curtis on 10-05-2024 Nucleated RBC/100 WBC (Bld) [Ratio] 0 % 0-5 [facility] [place] Platelet countOrdered By: Hung Curtis on 10-05-2024 Platelets (Bld) [#/Vol] 235 10*3/uL 150-450 [facility] [place] Potassium measurement (mass/ volume)Ordered By: Shayy Martinsergio on 10-05-2024 Potassium (Unsp spec) [Mass/Vol] 4.1 mmol/L 3.3-5.1 [facility] [place] RBC Auto (Bld) [#/Vol]Ordere d By: Shayy Curtis on 10-05-2024 RBC (Bld) [#/Vol] 4.44 10*6/uL Low 4.6-6.2 [facility] Serum creatinine measurement (mass/volume)Ordered By: Shayy Curtis on 10-05-2024 Creatinine [Mass/Vol] 0.73 mg/dL 0.70-1.20 [facility] Serum glucose measurement (m ass/volume)Ordered By: Shayy Curtis on 10-05-2024 Glucose [Mass/Vol] 90 mg/dL 70-99 [facility] Serum or plasma calcium alvaro urement (mass/volume)Ordered By: Shayy Curtis on 10-05-2024 Calcium [Mass/Vol] 8.7 mg/dL 7.6-11.0 [facility] Serum or plasma urea nitroge n measurement (mass/volume)Ordered By: Shayy Bernalradha on 10-05-2024 Urea nitrogen [Mass/Vol] 13 mg/dL 4-19 [facility] Sodium levelOrdered By: Latrice timmy Ever on 10-05-2024 Sodium [Moles/Vol] 140 mmol/L 133-145 [facility] White blood cell (WBC) count Ordered By: Shayy Curtis on 10-05-2024 WBC (Bld) [#/Vol] 6.5 10*3/uL 4.4-11.0 [facility] International normalized rat io (INR) calculationOrdered By: Shayy Curtis on 09-29-2024 INR Coag (Bld) [Relative time] 3.3 {INR} [facility] [place] Prothrombin timeOrdered By: Shayy Curtis on 09-29-2024 PT Coag (PPP) [Time] 34.4 s High 11.7-14.9 [facility] Absolute lymphocyte countOrd ered By: Shayy Curtis on 09-28-2024 Lymphocytes Auto (Unsp spec) [#/Vol] 1.41 10*3/uL 0.83-4.51 [facility] [place] Absolute neutrophil countOrd ered By: Shayy Curtis on 09-28-2024 Neutrophils (Bld) [#/Vol] 4.8 10*3/uL 2.0-7.7 [facility] [place] Anion gap in Serum or Plasma Ordered By: Shayy Curtis on 09-28-2024 Anion gap [Moles/Vol] 13 mmol/L 5-15 [facility] Automated lymphocyte count a s percentage of total leukocytesOrdered By: Shayy Curtis on 09-28-2024 Lymphocytes/100 WBC Auto (Unsp spec) 20.1 % 19-41 [facility] [place] BUN/creatinine ratioOrdered By: Shayy Curtis on 09-28-2024 Urea nitrogen/Creatinine [Mass ratio] 19.9 mg/mg 10-20 [facility] [place] Basophil percentageOrdered B y: Shayy Curtis on 09-28-2024 Basophils/100 WBC (Bld) 0.6 % 0-1 [facility] [place] Carbon dioxide, total [Moles /volume] in Central venous bloodOrdered By: Shayy Curtis on 09-28-2024 CO2 [Moles/Vol] 21.1 mmol/L 21.0-32.0 [facility] [place] Chloride assayOrdered By: Hung connorirlanda Curtis on 09-28-2024 Chloride [Moles/Vol] 105 mmol/L 98-108 [facility] Eosinophil percentageOrdered By: Hungbaldomero Salazartomyradha 09-28-2024 Eosinophils/100 WBC (Bld) 2.0 % 0-5 [facility] [place] Erythrocyte distribution wid th ratioOrdered By: Shayy Curtis on 09-28-2024 Erythrocyte distribution width (RBC) [Ratio] 18.3 % High 11.6-14.6 [facility] [place] Erythrocyte distribution wid th standard deviationOrdered By: Hunghollieforest groveirlanda Curtis on 09-28-2024 Erythrocyte distribution width (RBC) [Ratio] 52.8 fl High 35.1-43.9 [facility] [place] Glomerular filtration rate ( GFR) estimation/1.73 sq m using serum, plasma, or whole bOrdered By: Shayy Curtis on 09-28-2024 GFR/1.73 sq M.predicted among non-blacks MDRD (S/P/Bld) [Vol rate/Area] 88 mL/min/{1.73_m2} >60 [facility] [place] Comment on above: mL/min/1.73m2 CKD-EP I Creatinine Equation (2020) Hematocrit Auto (Bld) [Volum e fraction]Ordered By: Shayy Curtis 09-28-2024 Hematocrit (Bld) [Volume fraction] 37.0 % Low 40-54 [facility] [place] Hemoglobin measurementOrdere d By: Shayy Curtis on 09-28-2024 Hemoglobin (Bld) [Mass/Vol] 11.5 g/dL Low 13.0-16.5 [facility] [place] Immature granulocytes/100 WB C Auto (Bld)Ordered By: Shayy Curtis on 09-28-2024 Immature granulocytes/100 WBC (Bld) 0.300 % 0.0-0.9 [facility] [place] Comment on above: IG% - Immature Granu locytes (promyelocytes, myelocytes and metamyelocytes) > 1% indicates that a LEFT SHIFT is Present. MCV (mean corpuscular volume ) determinationOrdered By: Shayy Curtis on 09-28-2024 MCV (RBC) [Entitic vol] 80.3 fL 80-94 [facility] [place] Mean corpuscular hemoglobin (MCH) determinationOrdered By: Shayy Curtis on 09-28-2024 MCH (RBC) [Entitic mass] 24.9 pg Low 27.0-32.0 [facility] [place] Mean corpuscular hemoglobin concentration (MCHC) determinationOrdered By: Shayy Curtis on 09-28-2024 MCHC (RBC) [Mass/Vol] 31.1 g/dL Low 32-36 [facility] Mean platelet volume determi nationOrdered By: Shayy Curtis on 09-28-2024 Platelet mean volume (Bld) [Entitic vol] 10.5 fL 6.2-12.0 [facility] [place] Monocyte percentageOrdered B y: Shayy Curtis on 09-28-2024 Monocytes/100 WBC (Bld) 8.8 % 0-10 [facility] [place] Neutrophil percentageOrdered By: Shayy Cutris on 09-28-2024 Neutrophils/100 WBC (Bld) 68.2 % 47-70 [facility] [place] Nucleated red blood cell per centageOrdered By: Shayy Curtis on 09-28-2024 Nucleated RBC/100 WBC (Bld) [Ratio] 0 % 0-5 [facility] [place] Platelet countOrdered By: Hung Curtis on 09-28-2024 Platelets (Bld) [#/Vol] 280 10*3/uL 150-450 [facility] [place] Potassium measurement (mass/ volume)Ordered By: Shayy Curtis on 09-28-2024 Potassium (Unsp spec) [Mass/Vol] 4.0 mmol/L 3.3-5.1 [facility] [place] RBC Auto (Bld) [#/Vol]Ordere d By: Shayy Curtis on 09-28-2024 RBC (Bld) [#/Vol] 4.61 10*6/uL 4.6-6.2 [facility] Serum creatinine measurement (mass/volume)Ordered By: Shayy Curtis on 09-28-2024 Creatinine [Mass/Vol] 0.71 mg/dL 0.70-1.20 [facility] Serum glucose measurement (m ass/volume)Ordered By: Shayy Curtis on 09-28-2024 Glucose [Mass/Vol] 91 mg/dL 70-99 [facility] Serum or plasma calcium alvaro urement (mass/volume)Ordered By: Shayy Curtis on 09-28-2024 Calcium [Mass/Vol] 8.9 mg/dL 7.6-11.0 [facility] Serum or plasma urea nitroge n measurement (mass/volume)Ordered By: Shayy Curtis on 09-28-2024 Urea nitrogen [Mass/Vol] 14 mg/dL 4-19 [facility] [place] Sodium levelOrdered By: Latrice Curtis on 09-28-2024 Sodium [Moles/Vol] 140 mmol/L 133-145 [facility] White blood cell (WBC) count Ordered By: Shayy Curtis on 09-28-2024 WBC (Bld) [#/Vol] 7.0 10*3/uL 4.4-11.0 [facility] International normalized rat io (INR) measurement by fingerstickOrdered By: Shayy Curtis on 09-26-2024 INR Coag (BldC) [Relative time] 2.5 [facility] [place] Comment on above: Critical Value > 4.0 Whole blood prothrombin time Ordered By: Shayy Curtis on 09-26-2024 PT Coag (Bld) [Time] 27.1 s High 11.7-14.9 [facility] International normalized rat io (INR) calculationOrdered By: Shayy Curtis on 09-23-2024 INR Coag (Bld) [Relative time] 2.0 {INR} [facility] [place] Prothrombin timeOrdered By: Shayy Curtis on 09-23-2024 PT Coag (PPP) [Time] 23.5 s High 11.7-14.9 [facility] Absolute lymphocyte countOrd ered By: Shayy Curtis on 09-21-2024 Lymphocytes Auto (Unsp spec) [#/Vol] 1.35 10*3/uL 0.83-4.51 [facility] [place] Absolute neutrophil countOrd ered By: Shayy Curtis on 09-21-2024 Neutrophils (Bld) [#/Vol] 4.3 10*3/uL 2.0-7.7 [facility] [place] Anion gap in Serum or Plasma Ordered By: hollieforest groveirlanda Curtis on 09-21-2024 Anion gap [Moles/Vol] 12 mmol/L 5-15 [facility] Automated lymphocyte count a s percentage of total leukocytesOrdered By: hollieforest groveirlanda Salazarradha on 09-21-2024 Lymphocytes/100 WBC Auto (Unsp spec) 21.5 % 19-41 [facility] [place] BUN/creatinine ratioOrdered By: [facility] Martinradha on 09-21-2024 Urea nitrogen/Creatinine [Mass ratio] 15.8 mg/mg 10-20 [facility] [place] Basophil percentageOrdered B y: baldomero Curtis on 09-21-2024 Basophils/100 WBC (Bld) 0.8 % 0-1 [facility] [place] CNPNon 09-21-2024 [facility] ROBY FLORES ([id number]) 1935 M Date Time Provider Department 09/21/24 [facility] During your visit today, we recorded the following information about you: Ruthannzenaida Petty 09/21/2024 9:[address] [facility] rehabilitation. 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 Encounter Status:Closed by MARTA PALACIO on 09/22/24 Normal [facility] Carbon dioxide, total [Moles /volume] in Central venous bloodOrdered By: Shayy Curtis on 09-21-2024 CO2 [Moles/Vol] 23.2 mmol/L 21.0-32.0 [facility] [place] Chloride assayOrdered By: Hung Curtis on 09-21-2024 Chloride [Moles/Vol] 104 mmol/L 98-108 [facility] Eosinophil percentageOrdered By: Shayy Curtis on 09-21-2024 Eosinophils/100 WBC (Bld) 1.3 % 0-5 [facility] [place] Erythrocyte distribution wid th ratioOrdered By: Shayy Curtis on 09-21-2024 Erythrocyte distribution width (RBC) [Ratio] 18.0 % High 11.6-14.6 [facility] [place] Erythrocyte distribution wid th standard deviationOrdered By: Shayy Curtis on 09-21-2024 Erythrocyte distribution width (RBC) [Ratio] 50.8 fl High 35.1-43.9 [facility] [place] Glomerular filtration rate ( GFR) estimation/1.73 sq m using serum, plasma, or whole bOrdered By: Shayy Curtis on 09-21-2024 GFR/1.73 sq M.predicted among non-blacks MDRD (S/P/Bld) [Vol rate/Area] 88 mL/min/{1.73_m2} >60 [facility] [place] Comment on above: mL/min/1.73m2 CKD-EP I Creatinine Equation (2020) Hematocrit Auto (Bld) [Volum e fraction]Ordered By: Shayy Curtis on 09-21-2024 Hematocrit (Bld) [Volume fraction] 37.5 % Low 40-54 [facility] [place] Hemoglobin measurementOrdere d By: Shayy Curtis on 09-21-2024 Hemoglobin (Bld) [Mass/Vol] 11.6 g/dL Low 13.0-16.5 [facility] [place] Immature granulocytes/100 WB C Auto (Bld)Ordered By: Shayy Curtis on 09-21-2024 Immature granulocytes/100 WBC (Bld) 0.300 % 0.0-0.9 [facility] [place] Comment on above: IG% - Immature Granu locytes (promyelocytes, myelocytes and metamyelocytes) > 1% indicates that a LEFT SHIFT is Present. International normalized rat io (INR) calculationOrdered By: Shayy Curtis on 09-21-2024 INR Coag (Bld) [Relative time] 1.7 {INR} [facility] [place] MCV (mean corpuscular volume ) determinationOrdered By: Shayy Curtis 09-21-2024 MCV (RBC) [Entitic vol] 78.9 fL Low 80-94 [facility] [place] Mean corpuscular hemoglobin (MCH) determinationOrdered By: baldomero Curtis 09-21-2024 MCH (RBC) [Entitic mass] 24.4 pg Low 27.0-32.0 [facility] [place] Mean corpuscular hemoglobin concentration (MCHC) determinationOrdered By: Shayy Curtis on 09-21-2024 MCHC (RBC) [Mass/Vol] 30.9 g/dL Low 32-36 [facility] Mean platelet volume determi nationOrdered By: Shayy Curtis on 09-21-2024 Platelet mean volume (Bld) [Entitic vol] 10.1 fL 6.2-12.0 [facility] [place] Monocyte percentageOrdered B y: Shayy Curtis on 09-21-2024 Monocytes/100 WBC (Bld) 8.1 % 0-10 [facility] [place] Neutrophil percentageOrdered By: Shayy Curtis on 09-21-2024 Neutrophils/100 WBC (Bld) 68.0 % 47-70 [facility] [place] Nucleated red blood cell per centageOrdered By: Shayy Curtis on 09-21-2024 Nucleated RBC/100 WBC (Bld) [Ratio] 0 % 0-5 [facility] [place] Platelet countOrdered By: Hung Curtis on 09-21-2024 Platelets (Bld) [#/Vol] 318 10*3/uL 150-450 [facility] [place] Potassium measurement (mass/ volume)Ordered By: Shayy Curtis on 09-21-2024 Potassium (Unsp spec) [Mass/Vol] 4.0 mmol/L 3.3-5.1 [facility] [place] Prothrombin timeOrdered By: Shayy Curtis on 09-21-2024 PT Coag (PPP) [Time] 20.6 s High 11.7-14.9 [facility] RBC Auto (Bld) [#/Vol]Ordere d By: Shayy Curtis on 09-21-2024 RBC (Bld) [#/Vol] 4.75 10*6/uL 4.6-6.2 [facility] Serum creatinine measurement (mass/volume)Ordered By: Shayy Curtis on 09-21-2024 Creatinine [Mass/Vol] 0.70 mg/dL 0.70-1.20 [facility] Serum glucose measurement (m ass/volume)Ordered By: Shayy Curtis on 09-21-2024 Glucose [Mass/Vol] 101 mg/dL High 70-99 [facility] Serum or plasma calcium alvaro urement (mass/volume)Ordered By: Shayy Curtis on 09-21-2024 Calcium [Mass/Vol] 9.2 mg/dL 7.6-11.0 [facility] Serum or plasma urea nitroge n measurement (mass/volume)Ordered By: Shayy Curtis on 09-21-2024 Urea nitrogen [Mass/Vol] 11 mg/dL 4-19 [facility] [place] Sodium levelOrdered By: Latrice simonmaira Ever on 09-21-2024 Sodium [Moles/Vol] 139 mmol/L 133-145 [facility] White blood cell (WBC) count Ordered By: Shayy Curtis on 09-21-2024 WBC (Bld) [#/Vol] 6.3 10*3/uL 4.4-11.0 [facility] International normalized rat io (INR) measurement by fingerstickOrdered By: Shayy Curtis on 09-19-2024 INR Coag (BldC) [Relative time] 1.9 [facility] [place] Comment on above: Critical Value > 4.0 Whole blood prothrombin time Ordered By: Shayy Curtis on 09-19-2024 PT Coag (Bld) [Time] 21.5 s High 11.7-14.9 [facility] International normalized rat io (INR) calculationOrdered By: Shayy Curtis on 09-15-2024 INR Coag (Bld) [Relative time] 2.1 {INR} [facility] [place] Prothrombin timeOrdered By: Shayy Curtis on 09-15-2024 PT Coag (PPP) [Time] 24.2 s High 11.7-14.9 [facility] Absolute lymphocyte countOrd ered By: Shayy Curtis on 09-14-2024 Lymphocytes Auto (Unsp spec) [#/Vol] 1.57 10*3/uL 0.83-4.51 [facility] [place] Absolute neutrophil countOrd ered By: Shayy Curtis on 09-14-2024 Neutrophils (Bld) [#/Vol] 5.1 10*3/uL 2.0-7.7 [facility] [place] Anion gap in Serum or Plasma Ordered By: Shayy Curtis on 09-14-2024 Anion gap [Moles/Vol] 12 mmol/L 5-15 [facility] Automated lymphocyte count a s percentage of total leukocytesOrdered By: Shayy Curtis on 09-14-2024 Lymphocytes/100 WBC Auto (Unsp spec) 20.8 % 19-41 [facility] [place] BUN/creatinine ratioOrdered By: hollieforest groveirlanda Curtis on 09-14-2024 Urea nitrogen/Creatinine [Mass ratio] 21.8 mg/mg High 10-20 [facility] [place] Basophil percentageOrdered B y: Shayy Curtis on 09-14-2024 Basophils/100 WBC (Bld) 1.1 % High 0-1 [facility] [place] Carbon dioxide, total [Moles /volume] in Central venous bloodOrdered By: Shayy Curtis on 09-14-2024 CO2 [Moles/Vol] 21.8 mmol/L 21.0-32.0 [facility] [place] Chloride assayOrdered By: Hung hollietimmy Curtis on 09-14-2024 Chloride [Moles/Vol] 107 mmol/L 98-108 [facility] Eosinophil percentageOrdered By: baldomero Curtis on 09-14-2024 Eosinophils/100 WBC (Bld) 1.7 % 0-5 [facility] [place] Erythrocyte distribution wid th ratioOrdered By: Shayy Curtis on 09-14-2024 Erythrocyte distribution width (RBC) [Ratio] 17.7 % High 11.6-14.6 [facility] [place] Erythrocyte distribution wid th standard deviationOrdered By: hollieforest groveirlanda Curtis on 09-14-2024 Erythrocyte distribution width (RBC) [Ratio] 51.1 fl High 35.1-43.9 [facility] [place] Glomerular filtration rate ( GFR) estimation/1.73 sq m using serum, plasma, or whole bOrdered By: Shayy Curtis on 09-14-2024 GFR/1.73 sq M.predicted among non-blacks MDRD (S/P/Bld) [Vol rate/Area] 87 mL/min/{1.73_m2} >60 [facility] [place] Comment on above: mL/min/1.73m2 CKD-EP I Creatinine Equation (2020) Hematocrit Auto (Bld) [Volum e fraction]Ordered By: Shayy Curtis on 09-14-2024 Hematocrit (Bld) [Volume fraction] 34.7 % Low 40-54 [facility] [place] Hemoglobin measurementOrdere d By: Shayy Curtis on 09-14-2024 Hemoglobin (Bld) [Mass/Vol] 10.7 g/dL Low 13.0-16.5 [facility] [place] Immature granulocytes/100 WB C Auto (Bld)Ordered By: Shayy Curtis on 09-14-2024 Immature granulocytes/100 WBC (Bld) 0.400 % 0.0-0.9 [facility] [place] Comment on above: IG% - Immature Granu locytes (promyelocytes, myelocytes and metamyelocytes) > 1% indicates that a LEFT SHIFT is Present. MCV (mean corpuscular volume ) determinationOrdered By: Shayy Curtis on 09-14-2024 MCV (RBC) [Entitic vol] 78.9 fL Low 80-94 [facility] [place] Mean corpuscular hemoglobin (MCH) determinationOrdered By: Shayy Curtis on 09-14-2024 MCH (RBC) [Entitic mass] 24.3 pg Low 27.0-32.0 [facility] [place] Mean corpuscular hemoglobin concentration (MCHC) determinationOrdered By: Shayy Curtis on 09-14-2024 MCHC (RBC) [Mass/Vol] 30.8 g/dL Low 32-36 [facility] Mean platelet volume determi nationOrdered By: Shayy Curtis on 09-14-2024 Platelet mean volume (Bld) [Entitic vol] 10.6 fL 6.2-12.0 [facility] [place] Monocyte percentageOrdered B y: Shyay Curtis on 09-14-2024 Monocytes/100 WBC (Bld) 8.5 % 0-10 [facility] [place] Neutrophil percentageOrdered By: Shayy Curtis on 09-14-2024 Neutrophils/100 WBC (Bld) 67.5 % 47-70 [facility] [place] Nucleated red blood cell per centageOrdered By: Shayy Curtis on 09-14-2024 Nucleated RBC/100 WBC (Bld) [Ratio] 0 % 0-5 [facility] [place] Platelet countOrdered By: Hung baldomero Curtis on 09-14-2024 Platelets (Bld) [#/Vol] 291 10*3/uL 150-450 [facility] [place] Potassium measurement (mass/ volume)Ordered By: Shayy Martinsergio on 09-14-2024 Potassium (Unsp spec) [Mass/Vol] 4.0 mmol/L 3.3-5.1 [facility] [place] RBC Auto (Bld) [#/Vol]Ordere d By: Shayy Curtis on 09-14-2024 RBC (Bld) [#/Vol] 4.40 10*6/uL Low 4.6-6.2 [facility] Serum creatinine measurement (mass/volume)Ordered By: Hunghollietimmy Martinsergio on 09-14-2024 Creatinine [Mass/Vol] 0.74 mg/dL 0.70-1.20 [facility] Serum glucose measurement (m ass/volume)Ordered By: Shayy Martinsergio on 09-14-2024 Glucose [Mass/Vol] 99 mg/dL 70-99 [facility] Serum or plasma calcium alvaro urement (mass/volume)Ordered By: Shayy Martinsergio on 09-14-2024 Calcium [Mass/Vol] 8.6 mg/dL 7.6-11.0 [facility] Serum or plasma urea nitroge n measurement (mass/volume)Ordered By: Shayy Martintomyradha on 09-14-2024 Urea nitrogen [Mass/Vol] 16 mg/dL 4-19 [facility] [place] Sodium levelOrdered By: Latrice Curtis on 09-14-2024 Sodium [Moles/Vol] 141 mmol/L 133-145 [facility] White blood cell (WBC) count Ordered By: Hunghollietimmy Martintomyradha on 09-14-2024 WBC (Bld) [#/Vol] 7.5 10*3/uL 4.4-11.0 [facility] International normalized rat io (INR) measurement by fingerstickOrdered By: Shayy Curtis on 09-12-2024 INR Coag (BldC) [Relative time] 3.2 [facility] [place] Comment on above: Critical Value > 4.0 Whole blood prothrombin time Ordered By: Shayy Curtis on 09-12-2024 PT Coag (Bld) [Time] 33.0 s High 11.7-14.9 [facility] International normalized rat io (INR) measurement by fingerstickOrdered By: Shayy Curtis on 09-08-2024 INR Coag (BldC) [Relative time] 2.2 [facility] [place] Comment on above: Critical Value > 4.0 Prothrombin Time w/INRon INR Normal [facility] [place] Comment on above: Result Comment: Canc elled via OM: Order cancelled - Patient discharged Performed By: #### L 300.3900 #### [facility] [place] Laboratory [address] [place], [place], [id number] PROTIME Normal 11.7-14.9 [facility] [place] Comment on above: Result Comment: Canc elled via OM: Order cancelled - Patient discharged Performed By: #### L 300.3900 #### [facility] [place] [address] [place], [place], [id number] [phone] Whole blood prothrombin time Ordered By: Shayy Curtis on 09-08-2024 PT Coag (Bld) [Time] 23.8 s High 11.7-14.9 [facility] Anion gap in Serum or Plasma Ordered By: Shayy Curtis on 09-07-2024 Anion gap [Moles/Vol] 10 mmol/L 5-15 [facility] BUN/creatinine ratioOrdered By: Shayy Curtis on 09-07-2024 Urea nitrogen/Creatinine [Mass ratio] 14.0 mg/mg 10-20 [facility] [place] Bilirubin, totalOrdered By: Shayy Curtis on 09-07-2024 Bilirubin [Mass/Vol] 1.02 mg/dL 0.00-1.30 [facility] Calculated very low density lipoprotein (VLDL) cholesterol measurementOrdered By: Shayy Curtis on 09-07-2024 Calculated very low density lipoprotein (VLDL) cholesterol measurement 13 mg/dL 5-40 [facility] [place] Carbon dioxide, total [Moles /volume] in Central venous bloodOrdered By: Shayy Curtis on 09-07-2024 CO2 [Moles/Vol] 25.4 mmol/L 21.0-32.0 [facility] [place] Chloride assayOrdered By: Hung Curtis on 09-07-2024 Chloride [Moles/Vol] 104 mmol/L 98-108 [facility] Culture, Blood (WB)on 2024 CUB No growth in 5 days. Normal [facility] Comment on above: Performed By: #### M 200.1000, L509.7001, L101.9900, L501.6710 #### [facility] [place] Laboratory [address] [place], [place], [id number] Glomerular filtration rate ( GFR) estimation/1.73 sq m using serum, plasma, or whole bOrdered By: Shayy Curtis on 09-07-2024 GFR/1.73 sq M.predicted among non-blacks MDRD (S/P/Bld) [Vol rate/Area] 88 mL/min/{1.73_m2} >60 [facility] [place] Comment on above: mL/min/1.73m2 CKD-EP I Creatinine Equation (2020) LDL calc ser/plasOrdered By: Shayy Curtis on 09-07-2024 Cholesterol in LDL [Mass/Vol] 64 mg/dL [facility] [place] Comment on above: Upxukwcqrp=690-624 m g/dL & Higher Lhkj=298 mg/dL or greater Laboratory - Chemistry and C hemistry - challengeOrdered By: Shayy Curtis on 09-07-2024 AST [Catalytic activity/Vol] 33 U/L <38 [facility] [place] Potassium measurement (mass/ volume)Ordered By: Shayy Curtis on 09-07-2024 Potassium (Unsp spec) [Mass/Vol] 3.8 mmol/L 3.3-5.1 [facility] [place] Prothrombin Time w/INRon INR Normal [facility] [place] Comment on above: Result Comment: Canc elled via OM: Order cancelled - Patient discharged Performed By: #### L 300.3900 #### [facility] [place] Laboratory [address] [place], [place], [id number] PROTIME Normal 11.7-14.9 [facility] [place] Comment on above: Result Comment: Canc elled via OM: Order cancelled - Patient discharged Performed By: #### L 300.3900 #### [facility] [place] Laboratory [address] [place], [place], [id number] Screening total cholesterol/ high density lipoprotein (HDL) cholesterol ratioOrdered By: Shayy Curtis on 09-07-2024 Cholesterol.total/Cho lesterol in HDL [Mass ratio] 3.75 {ratio} [facility] [place] Serum creatinine measurement (mass/volume)Ordered By: Shayy Curtis on 09-07-2024 Creatinine [Mass/Vol] 0.70 mg/dL 0.70-1.20 [facility] Serum globulin measurementOr dered By: Shayy Curtis on 09-07-2024 Globulin (S) [Mass/Vol] 2.5 g/dL 2.2-4.2 [facility] [place] Serum glucose measurement (m ass/volume)Ordered By: Shayy Curtis on 09-07-2024 Glucose [Mass/Vol] 107 mg/dL High 70-99 [facility] Serum or plasma alanine franks otransferase (ALT) measurementOrdered By: Shayy Curtis on 09-07-2024 ALT [Catalytic activity/Vol] 23 U/L <47 [facility] [place] Serum or plasma albumin alvaro urement (mass/volume)Ordered By: Shayy Curtis on 09-07-2024 Albumin [Mass/Vol] 3.7 g/dL 3.4-4.8 [facility] Serum or plasma albumin/glob ulin mass ratioOrdered By: Shayy Curtis on 09-07-2024 Albumin/Globulin [Mass ratio] 1.5 {ratio} 0.9-2.4 [facility] [place] Serum or plasma alkaline carole sphatase measurementOrdered By: Shayy Curtis on 09-07-2024 ALP [Catalytic activity/Vol] 123 U/L 40-129 [facility] [place] Serum or plasma calcium alvaro urement (mass/volume)Ordered By: Shayy Salazartomyradha on 09-07-2024 Calcium [Mass/Vol] 8.7 mg/dL 7.6-11.0 [facility] Serum or plasma cholesterol in HDL measurement (mass/volume)Ordered By: Latricerobsonirlanda Salazartomyradha on 09-07-2024 Cholesterol in HDL [Mass/Vol] 28 mg/dL Low >40 [facility] [place] Comment on above: National Cholesterol Education Program (NCEP) guidelines:<40 mg/dL: Low HDL-cholesterol (major risk factor for CHD)>= 60 mg/dL: High HDL-cholesterol (negative risk factor for CHD)HDL-cholesterol is affected by a number of factors, e.g. smoking, exercise, hormones, sex and age. Serum or plasma cholesterol measurement (mass/volume)Ordered By: Shayy Curtis on 09-07-2024 Cholesterol [Mass/Vol] 105 mg/dL <201 [facility] [place] Comment on above: Cholesterol level, D esirable <200 mg/dLBorderline high cholesterol 200-239 mg/dLHigh cholesterol >=240 mg/dLRecommendations of the NCEP Adult Treatment Panel for the following risk-cutoff thresholds for the [place] population. Serum or plasma urea nitroge n measurement (mass/volume)Ordered By: Shayy Curtis on 09-07-2024 Urea nitrogen [Mass/Vol] 10 mg/dL 4-19 [facility] [place] Sodium levelOrdered By: Latrice simonmaira Martintomyradha on 09-07-2024 Sodium [Moles/Vol] 139 mmol/L 133-145 [facility] TSH DL <= 0.005 mIU/L QnOrde red By: Shayy Salazartomyradha on 09-07-2024 TSH Qn 0.300 uIU/mL 0.300-4.20 0 [facility] [place] Total proteinOrdered By: Yazan jessicairlanda Curtis on 09-07-2024 Protein [Mass/Vol] 6.2 g/dL 5.9-8.4 [facility] Triglycerides measurementOrd ered By: Shayy Curtis on 09-07-2024 Triglyceride [Mass/Vol] 63 mg/dL <199 [facility] [place] Comment on above: The drugs N-Acetylcy steine and Metamizole may falsely depress this assay. Normal range: <150 mg/dLBorderline High: 150-199 mg/dLHigh: 200-499 mg/dLVery High: >500 mg/dL Vitamin B12 ser/plasOrdered By: Shayy Curtis on 09-07-2024 Cobalamin (Vitamin B12) [Mass/Vol] 519 pg/mL 180-914 [facility] [place] Absolute lymphocyte countOrd ered By: Navid Dominguez on 09-06-2024 Lymphocytes Auto (Unsp spec) [#/Vol] 1.28 10*3/uL 0.83-4.51 [facility] [place] Absolute neutrophil countOrd ered By: Navid Dominguez on 09-06-2024 Neutrophils (Bld) [#/Vol] 5.2 10*3/uL 2.0-7.7 [facility] [place] Anion gap in Serum or Plasma Ordered By: Navid Dominguez on 09-06-2024 Anion gap [Moles/Vol] 10 mmol/L 5-15 [facility] Automated blood erythrocyte countOrdered By: Navid Dominguez on 09-06-2024 RBC (Bld) [#/Vol] 4.39 10*6/uL Low 4.6-6.2 [facility] Comment on above: Performed By: #### L 100.0100, L500.2500, L300.3900 #### [facility] [place] Laboratory [address] [place], [address] Automated blood hematocrit ( percentage)Ordered By: Navid Dominguez on 09-06-2024 Hematocrit (Bld) [Volume fraction] 33.6 % Low 40-54 [facility] [place] Comment on above: Performed By: #### L 100.0100, L500.2500, L300.3900 #### [facility] [place] Laboratory [address] [place], [address] Automated lymphocyte count a s percentage of total leukocytesOrdered By: Navid Dominguez on 09-06-2024 Lymphocytes/100 WBC Auto (Unsp spec) 16.4 % Low 19-41 [facility] [place] BUN/creatinine ratioOrdered By: Navid Dominguez on 09-06-2024 Urea nitrogen/Creatinine [Mass ratio] 14.4 mg/mg 10-20 [facility] [place] Basic Metabolic Profile (BMP )on 09-06-2024 BUN/CRE 14.4 RATIO Normal 10-20 [facility] [place] Comment on above: Performed By: #### M 200.1000, L509.7001, L101.9900, L501.6710 #### [facility] [place] Laboratory [address] [place], [address] ECRCL 64.10 ml/min Normal 50-250 [facility] [place] Comment on above: Performed By: #### M 200.1000, L509.7001, L101.9900, L501.6710 #### [facility] [place] Laboratory [address] [place], [address] GAP 10 Normal 5-15 [facility] [place] Comment on above: Performed By: #### M 200.1000, L509.7001, L101.9900, L501.6710 #### [facility] [place] Laboratory [address] [place], [address] Potassium [Moles/Vol] 3.5 mmol/L Normal 3.3-5.1 [facility] Comment on above: Performed By: #### M 200.1000, L509.7001, L101.9900, L501.6710 #### [facility] [place] Laboratory [address] [place], [address] Basophil percentageOrdered B y: Navid Dominguez on 09-06-2024 Basophils/100 WBC (Bld) 1.0 % Normal 0-1 [facility] [place] Comment on above: Performed By: #### L 100.0100, L500.2500, L300.3900 #### [facility] Laboratory [address] [place], [address] CBC W/Diff, Automatedon 08-21 Absolute Lymph 1.28 X10 3/uL Normal 0.83-4.51 [facility] [place] Comment on above: Performed By: #### L 100.0100, L500.2500, L300.3900 #### [facility] [place] Laboratory [address] [place], [address] Absolute Neut 5.2 X10 3/uL Normal 2.0-7.7 [facility] [place] Comment on above: Performed By: #### L 100.0100, L500.2500, L300.3900 #### [facility] [place] Laboratory [address] [place], [address] IG% 0.400 Normal 0.0-0.9 [facility] Comment on above: Result Comment: IG% - Immature Granulocytes (promyelocytes, myelocytes and metamyelocytes) > 1% indicates that a LEFT SHIFT is Present. Performed By: #### L 100.0100, L500.2500, L300.3900 #### [facility] Laboratory [address] [place], [address] Lymphocytes/100 WBC (Bld) 16.4 % Low 19-41 [facility] [place] Comment on above: Performed By: #### L 100.0100, L500.2500, L300.3900 #### [facility] Laboratory [address] [place], [address] Nucleated RBC (Bld) [#/Vol] 0 10*3/uL Normal 0-5 [facility] [place] Comment on above: Performed By: #### L 100.0100, L500.2500, L300.3900 #### [facility] Laboratory [address] [place], [address] RDW SD 48.2 fl High 35.1-43.9 [facility] Comment on above: Performed By: #### L 100.0100, L500.2500, L300.3900 #### [facility] Laboratory [address] [place], [address] Carbon dioxide, total [Moles /volume] in Central venous bloodOrdered By: Navid Dominguez on 09-06-2024 CO2 [Moles/Vol] 24.9 mmol/L Normal 21.0-32.0 [facility] [place] Comment on above: Performed By: #### M 200.1000, L509.7001, L101.9900, L501.6710 #### [facility] Laboratory [address] [place], [address] Chloride assayOrdered By: Cameron Dominguez on 09-06-2024 Chloride [Moles/Vol] 106 mmol/L Normal 98-108 [facility] Comment on above: Performed By: #### M 200.1000, L509.7001, L101.9900, L501.6710 #### [facility] Laboratory [address] [place], [address] Eosinophil percentageOrdered By: Navid Dominguez on 09-06-2024 Eosinophils/100 WBC (Bld) 6.3 % High 0-5 [facility] [place] Comment on above: Performed By: #### L 100.0100, L500.2500, L300.3900 #### [facility] Laboratory [address] [place], [address] Erythrocyte distribution wid th ratioOrdered By: Navid Dominguez on 09-06-2024 Erythrocyte distribution width (RBC) [Ratio] 17.4 % High 11.6-14.6 [facility] [place] Comment on above: Performed By: #### L 100.0100, L500.2500, L300.3900 #### [facility] [place] Laboratory [address] [place], [address] Erythrocyte distribution wid th standard deviationOrdered By: Navid Dominguez on 09-06-2024 Erythrocyte distribution width (RBC) [Ratio] 48.2 fl High 35.1-43.9 [facility] [place] Glomerular filtration rate ( GFR) estimation/1.73 sq m using serum, plasma, or whole bOrdered By: Navid Dominguez on 09-06-2024 GFR/1.73 sq M.predicted among non-blacks MDRD (S/P/Bld) [Vol rate/Area] 87 mL/min/{1.73_m2} Normal >60 [facility] Comment on above: mL/min/1.73m2 CKD-EP I Creatinine Equation (2020) Result Comment: mL/m in/1.73m2 CKD-EPI Creatinine Equation (2020) Performed By: #### M 200.1000, L509.7001, L101.9900, L501.6710 #### [facility] Laboratory [address] [place], [place], [id number] Hemoglobin measurementOrdere d By: Navid Dominguez on 09-06-2024 Hemoglobin (Bld) [Mass/Vol] 10.8 g/dL Low 13.0-16.5 [facility] Comment on above: Performed By: #### L 100.0100, L500.2500, L300.3900 #### [facility] Laboratory [address] [facility] [facility] [place], [place], [id number] Immature granulocytes/100 WB C Auto (Bld)Ordered By: Navid Dominguez on 09-06-2024 Immature granulocytes/100 WBC (Bld) 0.400 % 0.0-0.9 [facility] Comment on above: IG% - Immature Granu locytes (promyelocytes, myelocytes and metamyelocytes) > 1% indicates that a LEFT SHIFT is Present. International normalized rat io (INR) calculationOrdered By: Navid Dominguez on 09-06-2024 INR Coag (Bld) [Relative time] 2.4 {INR} [facility] [place] MCV (mean corpuscular volume ) determinationOrdered By: Navid Dominguez on 09-06-2024 MCV (RBC) [Entitic vol] 76.5 fL Low 80-94 [facility] Comment on above: Performed By: #### L 100.0100, L500.2500, L300.3900 #### [facility] Laboratory [address] [place], [address] Mean corpuscular hemoglobin (MCH) determinationOrdered By: Navid Dominguez on 09-06-2024 MCH (RBC) [Entitic mass] 24.6 pg Low 27.0-32.0 [facility] [place] Comment on above: Performed By: #### L 100.0100, L500.2500, L300.3900 #### [facility] Laboratory [address] [place], [address] Mean corpuscular hemoglobin concentration (MCHC) determinationOrdered By: Navid Dominguez on 09-06-2024 MCHC (RBC) [Mass/Vol] 32.1 g/dL Normal 32-36 [facility] Comment on above: Performed By: #### L 100.0100, L500.2500, L300.3900 #### [facility] Laboratory [address] [place], [address] Mean platelet volume determi nationOrdered By: Navid Dominguez on 09-06-2024 Platelet mean volume (Bld) [Entitic vol] 9.4 fL Normal 6.2-12.0 [facility] Comment on above: Performed By: #### L 100.0100, L500.2500, L300.3900 #### [facility] Laboratory [address] [place], [address] Monocyte percentageOrdered B y: Navid Dominguez on 09-06-2024 Monocytes/100 WBC (Bld) 9.1 % Normal 0-10 [facility] Comment on above: Performed By: #### L 100.0100, L500.2500, L300.3900 #### [facility] Laboratory [address] [place], [address] Neutrophil percentageOrdered By: Navid Dominguez on 09-06-2024 Neutrophils/100 WBC (Bld) 66.8 % Normal 47-70 [facility] Comment on above: Performed By: #### L 100.0100, L500.2500, L300.3900 #### [facility] Laboratory [address] [place], [address] Nucleated red blood cell per centageOrdered By: Navid Dominguez on 09-06-2024 Nucleated RBC/100 WBC (Bld) [Ratio] 0 % 0-5 [facility] Platelet countOrdered By: Cameron Dominguez on 09-06-2024 Platelets (Bld) [#/Vol] 325 10*3/uL Normal 150-450 [facility] [place] Comment on above: Performed By: #### L 100.0100, L500.2500, L300.3900 #### [facility] Laboratory [address] [place], [address] Potassium measurement (mass/ volume)Ordered By: Navid Dominguez on 09-06-2024 Potassium (Unsp spec) [Mass/Vol] 3.5 mmol/L 3.3-5.1 [facility] Prothrombin Time w/INRon INR Coag (PPP) [Relative time] 2.4 {INR} Normal [facility] [place] Comment on above: Performed By: #### M 200.1000, L509.7001, L101.9900, L501.6710 #### [facility] Laboratory [address] [place], [address] Prothrombin timeOrdered By: Navid Dominguez on 09-06-2024 PT Coag (PPP) [Time] 27.0 s High 11.7-14.9 [facility] Comment on above: Performed By: #### M 200.1000, L509.7001, L101.9900, L501.6710 #### [facility] Laboratory [address] [place], [address] Serum creatinine measurement (mass/volume)Ordered By: Navid Dominguez on 09-06-2024 Creatinine [Mass/Vol] 0.73 mg/dL Normal 0.70-1.20 [facility] Comment on above: Performed By: #### M 200.1000, L509.7001, L101.9900, L501.6710 #### [facility] Laboratory [address] [place], [address] Serum glucose measurement (m ass/volume)Ordered By: Navid Dominguez on 09-06-2024 Glucose [Mass/Vol] 109 mg/dL High 70-99 [facility] Comment on above: Performed By: #### M 200.1000, L509.7001, L101.9900, L501.6710 #### [facility] Laboratory [address] [place], [address] Serum or plasma calcium alvaro urement (mass/volume)Ordered By: Navid Dominguez on 09-06-2024 Calcium [Mass/Vol] 8.7 mg/dL Normal 7.6-11.0 [facility] Comment on above: Performed By: #### M 200.1000, L509.7001, L101.9900, L501.6710 #### [facility] Laboratory [address] [place], [address] Serum or plasma urea nitroge n measurement (mass/volume)Ordered By: Navid Dominguez on 09-06-2024 Urea nitrogen [Mass/Vol] 11 mg/dL Normal 4-19 [facility] Comment on above: Performed By: #### M 200.1000, L509.7001, L101.9900, L501.6710 #### [facility] Laboratory [address] [place], [address] Sodium levelOrdered By: Kamilah Dominguez on 09-06-2024 Sodium [Moles/Vol] 141 mmol/L Normal 133-145 [facility] Comment on above: Performed By: #### M 200.1000, L509.7001, L101.9900, L501.6710 #### [facility] Laboratory [address] [place], [address] White blood cell (WBC) count Ordered By: Navid Dominguez on 09-06-2024 WBC (Bld) [#/Vol] 7.8 10*3/uL Normal 4.4-11.0 [facility] Comment on above: Performed By: #### L 100.0100, L500.2500, L300.3900 #### [facility] Laboratory [address] [place], [address] Basic Metabolic Profile (BMP )on 09-05-2024 BUN/CRE 13.4 RATIO Normal 10-20 [facility] Comment on above: Performed By: #### M 200.1000, L509.7001, L101.9900, L501.6710 #### [facility] Laboratory [address] [place], [address] Calcium [Mass/Vol] 8.6 mg/dL Normal 7.6-11.0 [facility] Comment on above: Performed By: #### M 200.1000, L509.7001, L101.9900, L501.6710 #### [facility] Laboratory [address] [place], [address] Chloride [Moles/Vol] 105 mmol/L Normal 98-108 [facility] Comment on above: Performed By: #### M 200.1000, L509.7001, L101.9900, L501.6710 #### [facility] Laboratory [address] [place], [address] CO2 [Moles/Vol] 21.9 mmol/L Normal 21.0-32.0 [facility] Comment on above: Performed By: #### M 200.1000, L509.7001, L101.9900, L501.6710 #### [facility] Laboratory [address] [place], [address] Creatinine [Mass/Vol] 0.62 mg/dL Low 0.70-1.20 [facility] Comment on above: Performed By: #### M 200.1000, L509.7001, L101.9900, L501.6710 #### [facility] Laboratory [address] [place], [address] ECRCL 64.10 ml/min Normal 50-250 [facility] Comment on above: Performed By: #### M 200.1000, L509.7001, L101.9900, L501.6710 #### [facility] Laboratory [address] [place], [address] GAP 12 Normal 5-15 [facility] Comment on above: Performed By: #### M 200.1000, L509.7001, L101.9900, L501.6710 #### [facility] Laboratory [address] [place], [address] GFR/1.73 sq M.predicted among non-blacks MDRD (S/P/Bld) [Vol rate/Area] 91 mL/min/{1.73_m2} Normal >60 [facility] Comment on above: Result Comment: mL/m in/1.73m2 CKD-EPI Creatinine Equation (2020) Performed By: #### M 200.1000, L509.7001, L101.9900, L501.6710 #### [facility] Laboratory [address] [place], [address] Glucose [Mass/Vol] 119 mg/dL High 70-99 [facility] Comment on above: Performed By: #### M 200.1000, L509.7001, L101.9900, L501.6710 #### [facility] Laboratory [address] [place], [address] Potassium [Moles/Vol] 3.3 mmol/L Normal 3.3-5.1 [facility] Comment on above: Performed By: #### M 200.1000, L509.7001, L101.9900, L501.6710 #### [facility] Laboratory [address] [place], [address] Sodium [Moles/Vol] 139 mmol/L Normal 133-145 [facility] Comment on above: Performed By: #### M 200.1000, L509.7001, L101.9900, L501.6710 #### [facility] [address] [place], [address] Urea nitrogen [Mass/Vol] 8 mg/dL Normal 4-19 [facility] Comment on above: Performed By: #### M 200.1000, L509.7001, L101.9900, L501.6710 #### [facility] [address] [place], [address] Bilirubin Test strip Ql (U)O rdered By: Marta Black on 09-05-2024 Bilirubin Ql (U) Negative Negative [facility] CBC W/Diff, Automatedon 08-21 Absolute Lymph 0.96 X10 3/uL Normal 0.83-4.51 [facility] Comment on above: Performed By: #### M 200.1000, L509.7001, L101.9900, [id number] #### [facility] [address] [place], [address] Absolute Neut 7.6 X10 3/uL Normal 2.0-7.7 [facility] Comment on above: Performed By: #### M 200.1000, L509.7001, L101.9900, [id number] #### [facility] [address] [place], [address] Basophils/100 WBC (Bld) 0.7 % Normal 0-1 [facility] Comment on above: Performed By: #### M 200.1000, L509.7001, L101.9900, [id number] #### [facility] [address] [place], [address] Eosinophils/100 WBC (Bld) 4.0 % Normal 0-5 [facility] Comment on above: Performed By: #### M 200.1000, L509.7001, L101.9900, [id number] #### [facility] [address] [place], [address] Erythrocyte distribution width (RBC) [Ratio] 17.6 % High 11.6-14.6 [facility] Comment on above: Performed By: #### M 200.1000, L509.7001, L101.9900, L501.6710 #### [facility] [address] [place], [address] Hematocrit (Bld) [Volume fraction] 35.3 % Low 40-54 [facility] Comment on above: Performed By: #### M 200.1000, L509.7001, L101.9900, [id number] #### [facility] [address] [place], [address] Hemoglobin (Bld) [Mass/Vol] 11.3 g/dL Low 13.0-16.5 [facility] Comment on above: Performed By: #### M 200.1000, L509.7001, L101.9900, L501.6710 #### [facility] [address] [place], [address] IG% 0.400 Normal 0.0-0.9 [facility] Comment on above: Result Comment: IG% - Immature Granulocytes (promyelocytes, myelocytes and metamyelocytes) > 1% indicates that a LEFT SHIFT is Present. Performed By: #### M 200.1000, L509.7001, L101.9900, L501.6710 #### [facility] [address] [place], [address] Lymphocytes/100 WBC (Bld) 9.8 % Low 19-41 [facility] Comment on above: Performed By: #### M 200.1000, L509.7001, L101.9900, [id number] #### [facility] [address] [place], [address] MCH (RBC) [Entitic mass] 24.4 pg Low 27.0-32.0 [facility] Comment on above: Performed By: #### M 200.1000, L509.7001, L101.9900, [id number] #### [facility] [address] [place], [address] MCHC (RBC) [Mass/Vol] 32.0 g/dL Normal 32-36 [facility] Comment on above: Performed By: #### M 200.1000, L509.7001, L101.9900, [id number] #### [facility] [address] [place], [address] MCV (RBC) [Entitic vol] 76.2 fL Low 80-94 [facility] Comment on above: Performed By: #### M 200.1000, L509.7001, L101.9900, [id number] #### [facility] [address] [place], [address] Monocytes/100 WBC (Bld) 7.9 % Normal 0-10 [facility] Comment on above: Performed By: #### M 200.1000, L509.7001, L101.9900, [id number] #### [facility] [address] [place], [address] Neutrophils/100 WBC (Bld) 77.2 % High 47-70 [facility] Comment on above: Performed By: #### M 200.1000, L509.7001, L101.9900, [id number] #### [facility] [address] [place], [address] Nucleated RBC (Bld) [#/Vol] 0 10*3/uL Normal 0-5 [facility] Comment on above: Performed By: #### M 200.1000, L509.7001, L101.9900, [id number] #### [facility] [address] [place], [address] Platelet mean volume (Bld) [Entitic vol] 9.3 fL Normal 6.2-12.0 [facility] Comment on above: Performed By: #### M 200.1000, L509.7001, L101.9900, L501.6710 #### [facility] [address] [place], [address] Platelets (Bld) [#/Vol] 329 10*3/uL Normal 150-450 [facility] Comment on above: Performed By: #### M 200.1000, L509.7001, L101.9900, [id number] #### [facility] [address] [place], [address] RBC (Bld) [#/Vol] 4.63 10*6/uL Normal 4.6-6.2 [facility] Comment on above: Performed By: #### M 200.1000, L509.7001, L101.9900, [id number] #### [facility] [address] [place], [address] RDW SD 47.9 fl High 35.1-43.9 [facility] Comment on above: Performed By: #### M 200.1000, L509.7001, L101.9900, [id number] #### [facility] [address] [place], [address] WBC (Bld) [#/Vol] 9.8 10*3/uL Normal 4.4-11.0 [facility] Comment on above: Performed By: #### M 200.1000, L509.7001, L101.9900, [id number] #### [facility] [address] [place], [address] Ketones Test strip Ql (U)Ord ered By: Marta Black on 09-05-2024 Ketones Ql (U) Negative Negative [facility] Microscopic analysis of urin e for red blood cells (RBC)Ordered By: Marta Black on 09-05-2024 Microscopic analysis of urine for red blood cells (RBC) 0-5 SEEN /hpf 0-5 [facility] Mucus LM Ql (Urine sed)Order ed By: Marta Black on 09-05-2024 Mucus Ql (Urine sed) 0 SEEN /hpf [facility] Nitrite Test strip Ql (U)Ord ered By: Marta Black on 09-05-2024 Nitrite Ql (U) Negative Negative [facility] Protein Test strip Ql (U)Ord ered By: Marta Black on 09-05-2024 Protein Ql (U) 15 mg/dl High Negative [facility] Prothrombin Time w/INRon INR Coag (PPP) [Relative time] 2.2 {INR} Normal [facility] Comment on above: Performed By: #### M 200.1000, L509.7001, L101.9900, L501.6710 #### [facility] [address] [place], [address] PT Coag (PPP) [Time] 24.7 s High 11.7-14.9 [facility] Comment on above: Performed By: #### M 200.1000, L509.7001, L101.9900, L501.6710 #### [facility] [address] [place], [address] Squamous epithelial cells de tection in urine sediment by light microscopyOrdered By: Marta Black on 09-05-2024 Epithelial cells.squamous LM Ql (Urine sed) 0 SEEN /hpf 0-5 [facility] Urinalysis, Completeon 09-05 BACTERIA RARE Normal None Seen [facility] Comment on above: Order Comment: CLEAN CATCH Performed By: #### M 200.1000, L509.7001, L101.9900, [id number] #### [facility] [address] [place], [address] RBC 0-5 SEEN Normal 0-5 [facility] Comment on above: Order Comment: CLEAN CATCH Performed By: #### M 200.1000, L509.7001, L101.9900, [id number] #### [facility] [address] [place], [address] WBC 0-5 SEEN Normal 0-5 [facility] Comment on above: Order Comment: CLEAN CATCH Performed By: #### M 200.1000, L509.7001, L101.9900, [id number] #### [facility] [address] [place], [address] BILIRUBIN URINE Negative Normal Negative [facility] Comment on above: Order Comment: CLEAN CATCH Performed By: #### M 200.1000, L509.7001, L101.9900, L501.6710 #### [facility] [address] [place], [address] Clarity (U) Clear Normal Clear [facility] Comment on above: Order Comment: CLEAN CATCH Performed By: #### M 200.1000, L509.7001, L101.9900, L501.6710 #### [facility] [address] [place], [address] Color (U) Straw Normal Yellow [facility] Comment on above: Order Comment: CLEAN CATCH Performed By: #### M 200.1000, L509.7001, L101.9900, L501.6710 #### [facility] [address] [place], [address] GLUCOSE, UR Normal Normal Normal [facility] Comment on above: Order Comment: CLEAN CATCH Performed By: #### M 200.1000, L509.7001, L101.9900, L501.6710 #### [facility] [address] [place], [address] KETONE UR Negative Normal Negative [facility] Comment on above: Order Comment: CLEAN CATCH Performed By: #### M 200.1000, L509.7001, L101.9900, L501.6710 #### [facility] [address] [place], [address] LEUK ESTERASE Negative Normal Negative [facility] Comment on above: Order Comment: CLEAN CATCH Performed By: #### M 200.1000, L509.7001, L101.9900, L501.6710 #### [facility] [address] [place], [address] Nitrite Ql (U) Negative Normal Negative [facility] Comment on above: Order Comment: CLEAN CATCH Performed By: #### M 200.1000, L509.7001, L101.9900, L501.6710 #### [facility] [address] [place], [address] OCCULT BLOOD-UR 25 /ul Abnormal Negative [facility] Comment on above: Order Comment: CLEAN CATCH Performed By: #### M 200.1000, L509.7001, L101.9900, L501.6710 #### [facility] [address] [place], [address] pH UR 7.0 Normal 5.0 - 8.0 [facility] Comment on above: Order Comment: CLEAN CATCH Performed By: #### M 200.1000, L509.7001, L101.9900, L501.6710 #### [facility] [address] [place], [address] PROT DIPSTX 15 mg/dl Abnormal Negative [facility] Comment on above: Order Comment: CLEAN CATCH Performed By: #### M 200.1000, L509.7001, L101.9900, L501.6710 #### [facility] [address] [place], [address] SP.GR. DIPSTX 1.005 Normal 1.002-1.03 0 [facility] Comment on above: Order Comment: CLEAN CATCH Performed By: #### M 200.1000, L509.7001, L101.9900, L501.6710 #### [facility] [address] [place], [address] UROBILI Normal Normal Normal [facility] Comment on above: Order Comment: CLEAN CATCH Performed By: #### M 200.1000, L509.7001, L101.9900, L501.6710 #### [facility] [address] [place], [address] EPI,SQUAMOUS 0 SEEN Normal 0-5 [facility] Comment on above: Order Comment: CLEAN CATCH Performed By: #### M 200.1000, L509.7001, L101.9900, L501.6710 #### [facility] [address] [place], [address] Mucus Ql (Urine sed) 0 SEEN Normal [facility] Comment on above: Order Comment: CLEAN CATCH Performed By: #### M 200.1000, L509.7001, L101.9900, L501.6710 #### [facility] [address] [place], [address] Urine clarityOrdered By: Magnolia Black on 09-05-2024 Clarity (U) Clear Clear [facility] Urine color determinationOrd ered By: Marta Black on 09-05-2024 Color (U) Straw Yellow [facility] Urine glucose detectionOrder ed By: Marta Black on 09-05-2024 Glucose Ql (U) Normal mg/dl Normal [facility] Urine leukocyte esterase det ection by dipstickOrdered By: Marta Black on 09-05-2024 Leukocyte esterase Test strip Ql (U) Negative Negative [facility] Urine pHOrdered By: Marta Black on 09-05-2024 pH (U) 7.0 [pH] 5.0 - 8.0 [facility] Urine sediment bacteria coun t by microscopy (number/high power field)Ordered By: Marta Black on 09-05-2024 Bacteria LM.HPF (Urine sed) [#/Area] RARE /hpf None Seen [facility] Urine specific gravity measu rementOrdered By: Marta Black on 09-05-2024 Specific gravity (U) [Rel density] 1.005 1.002-1.03 0 [facility] Urine urobilinogen measureme ntOrdered By: Marta Black on 09-05-2024 Urobilinogen Ql (U) Normal mg/dl Normal [facility] White blood cell countOrdere d By: Marta Black on 09-05-2024 White blood cell count 0-5 SEEN /hpf 0-5 [facility] Basic Metabolic Profile (BMP )on 09-04-2024 BUN/CRE 17.3 RATIO Normal 10-20 [facility] Comment on above: Performed By: #### M 200.1000, L509.7001, L101.9900, L501.6710 #### [facility] [address] [place], [address] Calcium [Mass/Vol] 8.2 mg/dL Normal 7.6-11.0 [facility] Comment on above: Performed By: #### M 200.1000, L509.7001, L101.9900, L501.6710 #### [facility] [address] [place], [address] Chloride [Moles/Vol] 107 mmol/L Normal 98-108 [facility] Comment on above: Performed By: #### M 200.1000, L509.7001, L101.9900, L501.6710 #### [facility] [address] [place], [address] CO2 [Moles/Vol] 20.9 mmol/L Low 21.0-32.0 [facility] Comment on above: Performed By: #### M 200.1000, L509.7001, L101.9900, L501.6710 #### [facility] [address] [place], [address] Creatinine [Mass/Vol] 0.72 mg/dL Normal 0.70-1.20 [facility] Comment on above: Performed By: #### M 200.1000, L509.7001, L101.9900, L501.6710 #### [facility] [address] [place], [address] ECRCL 64.10 ml/min Normal 50-250 [facility] Comment on above: Performed By: #### M 200.1000, L509.7001, L101.9900, L501.6710 #### [facility] [address] [place], [address] GAP 11 Normal 5-15 [facility] Comment on above: Performed By: #### M 200.1000, L509.7001, L101.9900, L501.6710 #### [facility] [address] [place], [address] GFR/1.73 sq M.predicted among non-blacks MDRD (S/P/Bld) [Vol rate/Area] 87 mL/min/{1.73_m2} Normal >60 [facility] Comment on above: Result Comment: mL/m in/1.73m2 CKD-EPI Creatinine Equation (2020) Performed By: #### M 200.1000, L509.7001, L101.9900, L501.6710 #### [facility] [address] [place], [address] Glucose [Mass/Vol] 120 mg/dL High 70-99 [facility] Comment on above: Performed By: #### M 200.1000, L509.7001, L101.9900, L501.6710 #### [facility] [address] [place], [address] Potassium [Moles/Vol] 3.5 mmol/L Normal 3.3-5.1 [facility] Comment on above: Performed By: #### M 200.1000, L509.7001, L101.9900, L501.6710 #### [facility] [address] [place], [address] Sodium [Moles/Vol] 139 mmol/L Normal 133-145 [facility] Comment on above: Performed By: #### M 200.1000, L509.7001, L101.9900, L501.6710 #### [facility] [address] [place], [address] Urea nitrogen [Mass/Vol] 12 mg/dL Normal 4-19 [facility] Comment on above: Performed By: #### M 200.1000, L509.7001, L101.9900, L501.6710 #### [facility] [address] [place], [address] CBC W/Diff, Automatedon -03 27-2024 Absolute Lymph 0.89 X10 3/uL Normal 0.83-4.51 [facility] Comment on above: Performed By: #### M 200.1000, L509.7001, L101.9900, L501.6710 #### [facility] [address] [place], [address] Absolute Neut 8.9 X10 3/uL High 2.0-7.7 [facility] Comment on above: Performed By: #### M 200.1000, L509.7001, L101.9900, L501.6710 #### [facility] [address] [place], [address] Basophils/100 WBC (Bld) 0.8 % Normal 0-1 [facility] Comment on above: Performed By: #### M 200.1000, L509.7001, L101.9900, L501.6710 #### [facility] [address] [place], [address] Eosinophils/100 WBC (Bld) 5.3 % High 0-5 [facility] Comment on above: Performed By: #### M 200.1000, L509.7001, L101.9900, L501.6710 #### [facility] [address] [place], [address] Erythrocyte distribution width (RBC) [Ratio] 17.5 % High 11.6-14.6 [facility] Comment on above: Performed By: #### M 200.1000, L509.7001, L101.9900, L501.6710 #### [facility] [address] [place], [address] Hematocrit (Bld) [Volume fraction] 33.3 % Low 40-54 [facility] Comment on above: Performed By: #### M 200.1000, L509.7001, L101.9900, L501.6710 #### [facility] [address] [place], [address] Hemoglobin (Bld) [Mass/Vol] 10.7 g/dL Low 13.0-16.5 [facility] Comment on above: Performed By: #### M 200.1000, L509.7001, L101.9900, L501.6710 #### [facility] [address] [place], [address] IG% 0.400 Normal 0.0-0.9 [facility] Comment on above: Result Comment: IG% - Immature Granulocytes (promyelocytes, myelocytes and metamyelocytes) > 1% indicates that a LEFT SHIFT is Present. Performed By: #### M 200.1000, L509.7001, L101.9900, L501.6710 #### [facility] [address] [place], [address] Lymphocytes/100 WBC (Bld) 7.8 % Low 19-41 [facility] Comment on above: Performed By: #### M 200.1000, L509.7001, L101.9900, L501.6710 #### [facility] [address] [place], [address] MCH (RBC) [Entitic mass] 24.6 pg Low 27.0-32.0 [facility] Comment on above: Performed By: #### M 200.1000, L509.7001, L101.9900, L501.6710 #### [facility] [address] [place], [address] MCHC (RBC) [Mass/Vol] 32.1 g/dL Normal 32-36 [facility] Comment on above: Performed By: #### M 200.1000, L509.7001, L101.9900, L501.6710 #### [facility] [address] [place], [address] MCV (RBC) [Entitic vol] 76.6 fL Low 80-94 [facility] Comment on above: Performed By: #### M 200.1000, L509.7001, L101.9900, L501.6710 #### [facility] [address] [place], [address] Monocytes/100 WBC (Bld) 7.7 % Normal 0-10 [facility] Comment on above: Performed By: #### M 200.1000, L509.7001, L101.9900, L501.6710 #### [facility] [address] [place], [address] Neutrophils/100 WBC (Bld) 78.0 % High 47-70 [facility] Comment on above: Performed By: #### M 200.1000, L509.7001, L101.9900, L501.6710 #### [facility] Laboratory [address] [place], [address] Nucleated RBC (Bld) [#/Vol] 0 10*3/uL Normal 0-5 [facility] [place] Comment on above: Performed By: #### M 200.1000, L509.7001, L101.9900, L501.6710 #### [facility] [place] Laboratory [address] [place], [address] Platelet mean volume (Bld) [Entitic vol] 10.6 fL Normal 6.2-12.0 [facility] [place] Comment on above: Performed By: #### M 200.1000, L509.7001, L101.9900, L501.6710 #### [facility] [place] Laboratory [address] [place], [address] Platelets (Bld) [#/Vol] 305 10*3/uL Normal 150-450 [facility] [place] Comment on above: Performed By: #### M 200.1000, L509.7001, L101.9900, L501.6710 #### [facility] [place] Laboratory [address] [place], [address] RBC (Bld) [#/Vol] 4.35 10*6/uL Low 4.6-6.2 [facility] Comment on above: Performed By: #### M 200.1000, L509.7001, L101.9900, L501.6710 #### [facility] [place] Laboratory [address] [place], [address] RDW SD 48.3 fl High 35.1-43.9 [facility] [place] Comment on above: Performed By: #### M 200.1000, L509.7001, L101.9900, L501.6710 #### [facility] [place] Laboratory [address] [place], [address] WBC (Bld) [#/Vol] 11.4 10*3/uL High 4.4-11.0 [facility] Comment on above: Performed By: #### M 200.1000, L509.7001, L101.9900, L501.6710 #### [facility] [place] Laboratory [address] [place], [address] Prothrombin Time w/INRon INR Coag (PPP) [Relative time] 1.9 {INR} Normal [facility] [place] Comment on above: Performed By: #### L 300.3900 #### [facility] [place] Laboratory [address] [place], [address] PT Coag (PPP) [Time] 21.8 s High 11.7-14.9 [facility] Comment on above: Performed By: #### L 300.3900 #### [facility] [place] Laboratory [address] [place], [address] Basic Metabolic Profile (BMP )on 09-03-2024 BUN/CRE 13.3 RATIO Normal 10-20 [facility] [place] Comment on above: Performed By: #### M 200.1000, L509.7001, L101.9900, L501.6710 #### [facility] [place] Laboratory [address] [place], [address] Calcium [Mass/Vol] 8.5 mg/dL Normal 7.6-11.0 [facility] Comment on above: Performed By: #### M 200.1000, L509.7001, L101.9900, L501.6710 #### [facility] [place] Laboratory [address] [place], [address] Chloride [Moles/Vol] 104 mmol/L Normal 98-108 [facility] Comment on above: Performed By: #### M 200.1000, L509.7001, L101.9900, L501.6710 #### [facility] [place] Laboratory [address] [place], [address] CO2 [Moles/Vol] 19.1 mmol/L Low 21.0-32.0 [facility] [place] Comment on above: Performed By: #### M 200.1000, L509.7001, L101.9900, L501.6710 #### [facility] [place] Laboratory [address] [place], [address] Creatinine [Mass/Vol] 0.74 mg/dL Normal 0.70-1.20 [facility] Comment on above: Performed By: #### M 200.1000, L509.7001, L101.9900, L501.6710 #### [facility] [place] Laboratory [address] [place], [address] ECRCL 64.10 ml/min Normal 50-250 [facility] [place] Comment on above: Performed By: #### M 200.1000, L509.7001, L101.9900, [id number] #### [facility] [place] Laboratory [address] [place], [address] GAP 13 Normal 5-15 [facility] [place] Comment on above: Performed By: #### M 200.1000, L509.7001, L101.9900, L501.6710 #### [facility] [place] Laboratory [address] [place], [address] GFR/1.73 sq M.predicted among non-blacks MDRD (S/P/Bld) [Vol rate/Area] 87 mL/min/{1.73_m2} Normal >60 [facility] [place] Comment on above: Result Comment: mL/m in/1.73m2 CKD-EPI Creatinine Equation (2020) Performed By: #### M 200.1000, L509.7001, L101.9900, L501.6710 #### [facility] [place] Laboratory [address] [place], [address] Glucose [Mass/Vol] 111 mg/dL High 70-99 [facility] Comment on above: Performed By: #### M 200.1000, L509.7001, L101.9900, L501.6710 #### [facility] [place] Laboratory [address] [place], [address] Potassium [Moles/Vol] 3.5 mmol/L Normal 3.3-5.1 [facility] Comment on above: Performed By: #### M 200.1000, L509.7001, L101.9900, L501.6710 #### [facility] [place] Laboratory [address] [place], [address] Sodium [Moles/Vol] 137 mmol/L Normal 133-145 [facility] Comment on above: Performed By: #### M 200.1000, L509.7001, L101.9900, L501.6710 #### [facility] [place] Laboratory [address] [place], [address] Urea nitrogen [Mass/Vol] 10 mg/dL Normal 4-19 [facility] [place] Comment on above: Performed By: #### M 200.1000, L509.7001, L101.9900, L501.6710 #### [facility] [place] Laboratory [address] [place], [address] CBC W/Diff, Automatedon -03 26-2024 Absolute Lymph 0.82 X10 3/uL Low 0.83-4.51 [facility] [place] Comment on above: Performed By: #### M 200.1000, L509.7001, L101.9900, L501.6710 #### [facility] [place] Laboratory [address] [place], [address] Absolute Neut 10.2 X10 3/uL High 2.0-7.7 [facility] [place] Comment on above: Performed By: #### M 200.1000, L509.7001, L101.9900, L501.6710 #### [facility] [place] Laboratory [address] [place], [address] Basophils/100 WBC (Bld) 0.7 % Normal 0-1 [facility] [place] Comment on above: Performed By: #### M 200.1000, L509.7001, L101.9900, L501.6710 #### [facility] [place] Laboratory [address] [place], [address] Eosinophils/100 WBC (Bld) 2.8 % Normal 0-5 [facility] [place] Comment on above: Performed By: #### M 200.1000, L509.7001, L101.9900, L501.6710 #### [facility] [place] Laboratory [address] [place], [address] Erythrocyte distribution width (RBC) [Ratio] 17.5 % High 11.6-14.6 [facility] [place] Comment on above: Performed By: #### M 200.1000, L509.7001, L101.9900, L501.6710 #### [facility] [place] Laboratory [address] [place], [address] Hematocrit (Bld) [Volume fraction] 35.6 % Low 40-54 [facility] [place] Comment on above: Performed By: #### M 200.1000, L509.7001, L101.9900, L501.6710 #### [facility] [place] Laboratory [address] [place], [address] Hemoglobin (Bld) [Mass/Vol] 11.3 g/dL Low 13.0-16.5 [facility] [place] Comment on above: Performed By: #### M 200.1000, L509.7001, L101.9900, L501.6710 #### [facility] [place] Laboratory [address] [place], [address] IG% 0.400 Normal 0.0-0.9 [facility] [place] Comment on above: Result Comment: IG% - Immature Granulocytes (promyelocytes, myelocytes and metamyelocytes) > 1% indicates that a LEFT SHIFT is Present. Performed By: #### M 200.1000, L509.7001, L101.9900, L501.6710 #### [facility] [place] Laboratory [address] [place], [address] Lymphocytes/100 WBC (Bld) 6.7 % Low 19-41 [facility] [place] Comment on above: Performed By: #### M 200.1000, L509.7001, L101.9900, L501.6710 #### [facility] [place] Laboratory [address] [place], [address] MCH (RBC) [Entitic mass] 24.7 pg Low 27.0-32.0 [facility] [place] Comment on above: Performed By: #### M 200.1000, L509.7001, L101.9900, L501.6710 #### [facility] [place] Laboratory [address] [place], [address] MCHC (RBC) [Mass/Vol] 31.7 g/dL Low 32-36 [facility] Comment on above: Performed By: #### M 200.1000, L509.7001, L101.9900, L501.6710 #### [facility] [place] Laboratory [address] [place], [address] MCV (RBC) [Entitic vol] 77.7 fL Low 80-94 [facility] [place] Comment on above: Performed By: #### M 200.1000, L509.7001, L101.9900, L501.6710 #### [facility] [place] Laboratory [address] [place], [address] Monocytes/100 WBC (Bld) 6.0 % Normal 0-10 [facility] [place] Comment on above: Performed By: #### M 200.1000, L509.7001, L101.9900, L501.6710 #### [facility] [place] Laboratory [address] [place], [address] Neutrophils/100 WBC (Bld) 83.4 % High 47-70 [facility] [place] Comment on above: Performed By: #### M 200.1000, L509.7001, L101.9900, L501.6710 #### [facility] [place] Laboratory [address] [place], [address] Nucleated RBC (Bld) [#/Vol] 0 10*3/uL Normal 0-5 [facility] [place] Comment on above: Performed By: #### M 200.1000, L509.7001, L101.9900, L501.6710 #### [facility] [place] Laboratory [address] [place], [address] Platelet mean volume (Bld) [Entitic vol] 9.9 fL Normal 6.2-12.0 [facility] [place] Comment on above: Performed By: #### M 200.1000, L509.7001, L101.9900, L501.6710 #### [facility] [place] Laboratory [address] [place], [address] Platelets (Bld) [#/Vol] 252 10*3/uL Normal 150-450 [facility] [place] Comment on above: Performed By: #### M 200.1000, L509.7001, L101.9900, L501.6710 #### [facility] [place] Laboratory [address] [place], [address] RBC (Bld) [#/Vol] 4.58 10*6/uL Low 4.6-6.2 [facility] Comment on above: Performed By: #### M 200.1000, L509.7001, L101.9900, L501.6710 #### [facility] [place] Laboratory [address] [place], [address] RDW SD 48.2 fl High 35.1-43.9 [facility] [place] Comment on above: Performed By: #### M 200.1000, L509.7001, L101.9900, L501.6710 #### [facility] [place] Laboratory [address] [place], [address] WBC (Bld) [#/Vol] 12.3 10*3/uL High 4.4-11.0 [facility] Comment on above: Performed By: #### M 200.1000, L509.7001, L101.9900, L501.6710 #### [facility] [place] Laboratory [address] [place], [address] Prothrombin Time w/INRon INR Coag (PPP) [Relative time] 1.8 {INR} Normal [facility] [place] Comment on above: Performed By: #### L 300.3900 #### [facility] [place] Laboratory [address] [place], [address] PT Coag (PPP) [Time] 20.9 s High 11.7-14.9 [facility] Comment on above: Performed By: #### L 300.3900 #### [facility] [place] Laboratory [address] [place], [address] Trough vancomycin levelOrder ed By: Marta Black on 09-03-2024 Vancomycin trough [Mass/Vol] 8.2 ug/mL 5.0-15.0 [facility] [place] Comment on above: Recommended goal tro ugh [...] therapy recommended for serious lifethreatening infections include:- Ntvzpmzomd-Oteogfjswqnx-Iqdwcjbwm (Ventilator/Healtcare Associated)-Sepsis PLEASE CONTACT PHARMACY SERVICES (#[id number]) FOR INTERPRETATIONOF RESULTS. Vancomycin, Trough Levelon 0 09-03-2024 VANCO, TROUGH 8.2 ug/mL Normal 5.0-15.0 [facility] [place] Comment on above: Order Comment: Comme nts: Trough to be drawn 30 mins prior to scheduled [id number] Result Comment: Ilya mmended goal trough ranges [...] (Ventilator/Healtcare Associated) -Sepsis PLEASE CONTACT PHARMACY SERVICES (#[id number]) FOR INTERPRETATION OF RESULTS. Performed By: #### M 200.1000, L509.7001, L101.9900, L501.6710 #### [facility] [place] Laboratory [address] [place], [address] Basic Metabolic Profile (BMP )on 09-02-2024 BUN/CRE 18.9 RATIO Normal 10-20 [facility] [place] Comment on above: Performed By: #### M 200.1000, L509.7001, L101.9900, L501.6710 #### [facility] [place] Laboratory [address] [place], [address] Calcium [Mass/Vol] 8.5 mg/dL Normal 7.6-11.0 [facility] Comment on above: Performed By: #### M 200.1000, L509.7001, L101.9900, L501.6710 #### [facility] [place] Laboratory [address] [place], [address] Chloride [Moles/Vol] 105 mmol/L Normal 98-108 [facility] Comment on above: Performed By: #### M 200.1000, L509.7001, L101.9900, L501.6710 #### [facility] [place] Laboratory [address] [place], [address] CO2 [Moles/Vol] 14.2 mmol/L Low 21.0-32.0 [facility] [place] Comment on above: Performed By: #### M 200.1000, L509.7001, L101.9900, L501.6710 #### [facility] [place] Laboratory [address] [place], [address] Creatinine [Mass/Vol] 0.75 mg/dL Normal 0.70-1.20 [facility] Comment on above: Performed By: #### M 200.1000, L509.7001, L101.9900, L501.6710 #### [facility] [place] Laboratory [address] [place], [address] ECRCL 64.10 ml/min Normal 50-250 [facility] [place] Comment on above: Performed By: #### M 200.1000, L509.7001, L101.9900, L501.6710 #### [facility] [place] Laboratory [address] [place], [address] GAP 15 Normal 5-15 [facility] [place] Comment on above: Performed By: #### M 200.1000, L509.7001, L101.9900, L501.6710 #### [facility] [place] Laboratory [address] [place], [address] GFR/1.73 sq M.predicted among non-blacks MDRD (S/P/Bld) [Vol rate/Area] 86 mL/min/{1.73_m2} Normal >60 [facility] [place] Comment on above: Result Comment: mL/m in/1.73m2 CKD-EPI Creatinine Equation (2020) Performed By: #### M 200.1000, L509.7001, L101.9900, L501.6710 #### [facility] [place] Laboratory [address] [place], [address] Glucose [Mass/Vol] 105 mg/dL High 70-99 [facility] Comment on above: Performed By: #### M 200.1000, L509.7001, L101.9900, L501.6710 #### [facility] [place] Laboratory [address] [place], [address] Potassium [Moles/Vol] 4.3 mmol/L Normal 3.3-5.1 [facility] Comment on above: Result Comment: Hemo lysis present, Results??could be affected. ?? Performed By: #### M 200.1000, L509.7001, L101.9900, L501.6710 #### [facility] [place] Laboratory [address] [place], [address] Sodium [Moles/Vol] 135 mmol/L Normal 133-145 [facility] Comment on above: Performed By: #### M 200.1000, L509.7001, L101.9900, L501.6710 #### [facility] [place] Laboratory [address] [place], [address] Urea nitrogen [Mass/Vol] 14 mg/dL Normal 4-19 [facility] [place] Comment on above: Performed By: #### M 200.1000, L509.7001, L101.9900, L501.6710 #### [facility] [place] Laboratory [address] [place], [address] CBC W/Diff, Automatedon 08-21-2024 Absolute Lymph 0.52 X10 3/uL Low 0.83-4.51 [facility] [place] Comment on above: Performed By: #### M 200.1000, L509.7001, L101.9900, L501.6710 #### [facility] [place] Laboratory [address] [place], [address] Absolute Neut 12.1 X10 3/uL High 2.0-7.7 [facility] [place] Comment on above: Performed By: #### M 200.1000, L509.7001, L101.9900, L501.6710 #### [facility] [place] Laboratory [address] [place], [address] Basophils/100 WBC (Bld) 0.6 % Normal 0-1 [facility] [place] Comment on above: Performed By: #### M 200.1000, L509.7001, L101.9900, L501.6710 #### [facility] [place] Laboratory [address] [place], [address] Eosinophils/100 WBC (Bld) 2.2 % Normal 0-5 [facility] [place] Comment on above: Performed By: #### M 200.1000, L509.7001, L101.9900, L501.6710 #### [facility] [place] Laboratory [address] [place], [address] Erythrocyte distribution width (RBC) [Ratio] 17.8 % High 11.6-14.6 [facility] [place] Comment on above: Performed By: #### M 200.1000, L509.7001, L101.9900, L501.6710 #### [facility] [place] Laboratory [address] [place], [address] Hematocrit (Bld) [Volume fraction] 39.9 % Low 40-54 [facility] [place] Comment on above: Performed By: #### M 200.1000, L509.7001, L101.9900, L501.6710 #### [facility] [place] Laboratory [address] [place], [address] Hemoglobin (Bld) [Mass/Vol] 11.9 g/dL Low 13.0-16.5 [facility] [place] Comment on above: Performed By: #### M 200.1000, L509.7001, L101.9900, L501.6710 #### [facility] [place] Laboratory [address] [place], [address] IG% 0.700 Normal 0.0-0.9 [facility] [place] Comment on above: Result Comment: IG% - Immature Granulocytes (promyelocytes, myelocytes and metamyelocytes) > 1% indicates that a LEFT SHIFT is Present. Performed By: #### M 200.1000, L509.7001, L101.9900, L501.6710 #### [facility] [place] Laboratory [address] [place], [address] Lymphocytes/100 WBC (Bld) 3.8 % Low 19-41 [facility] [place] Comment on above: Performed By: #### M 200.1000, L509.7001, L101.9900, L501.6710 #### [facility] [place] Laboratory [address] [place], [address] MCH (RBC) [Entitic mass] 24.5 pg Low 27.0-32.0 [facility] [place] Comment on above: Performed By: #### M 200.1000, L509.7001, L101.9900, L501.6710 #### [facility] Laboratory [address] [place], [address] MCHC (RBC) [Mass/Vol] 29.8 g/dL Low 32-36 [facility] Comment on above: Performed By: #### M 200.1000, L509.7001, L101.9900, L501.6710 #### [facility] Laboratory [address] [place], [address] MCV (RBC) [Entitic vol] 82.3 fL Normal 80-94 [facility] [place] Comment on above: Performed By: #### M 200.1000, L509.7001, L101.9900, L501.6710 #### [facility] Laboratory [address] [place], [address] Monocytes/100 WBC (Bld) 4.8 % Normal 0-10 [facility] [place] Comment on above: Performed By: #### M 200.1000, L509.7001, L101.9900, L501.6710 #### [facility] Laboratory [address] [place], [address] Neutrophils/100 WBC (Bld) 87.9 % High 47-70 [facility] Comment on above: Performed By: #### M 200.1000, L509.7001, L101.9900, L501.6710 #### [facility] Laboratory [address] [place], [address] Nucleated RBC (Bld) [#/Vol] 0 10*3/uL Normal 0-5 [facility] [place] Comment on above: Performed By: #### M 200.1000, L509.7001, L101.9900, L501.6710 #### [facility] Laboratory [address] [place], [address] Platelet mean volume (Bld) [Entitic vol] 10.6 fL Normal 6.2-12.0 [facility] Comment on above: Performed By: #### M 200.1000, L509.7001, L101.9900, L501.6710 #### [facility] Laboratory [address] [place], [address] Platelets (Bld) [#/Vol] 227 10*3/uL Normal 150-450 [facility] [place] Comment on above: Performed By: #### M 200.1000, L509.7001, L101.9900, L501.6710 #### [facility] Laboratory [address] [place], [address] RBC (Bld) [#/Vol] 4.85 10*6/uL Normal 4.6-6.2 [facility] Comment on above: Performed By: #### M 200.1000, L509.7001, L101.9900, L501.6710 #### [facility] Laboratory [address] [place], [address] RDW SD 52.3 fl High 35.1-43.9 [facility] [place] Comment on above: Performed By: #### M 200.1000, L509.7001, L101.9900, L501.6710 #### [facility] Laboratory [address] [place], [address] WBC (Bld) [#/Vol] 13.8 10*3/uL High 4.4-11.0 [facility] Comment on above: Performed By: #### M 200.1000, L509.7001, L101.9900, L501.6710 #### [facility] Laboratory [address] [place], [address] Prothrombin Time w/INRon INR Coag (PPP) [Relative time] 1.9 {INR} Normal [facility] Comment on above: Performed By: #### M 200.1000, L509.7001, L101.9900, L501.6710 #### [facility] Laboratory [address] [place], [address] PT Coag (PPP) [Time] 22.1 s High 11.7-14.9 [facility] Comment on above: Performed By: #### M 200.1000, L509.7001, L101.9900, L501.6710 #### [facility] Laboratory [address] [place], [address] RESPIRATORY PANEL MOLECULARo n 09-02-2024 RP PANEL ADENOVIRUS Not Detected INFLUENZA A Not Detected INFLUENZA A (SUBTYPE H1) Not Detected INFLUENZA A (SUBTYPE H3) Not Detected INFLUENZA B Not Detected HUMAN METAPHNEUMO Not Detected PARAINFLUENZA 1 Not Detected PARAINFLUENZA 2 Not Detected PARAINFLUENZA 3 Not Detected PARAINFLUENZA 4 Not Detected RHINOVIRUS Not Detected RSV A Not Detected RSV B Not Detected Normal [facility] Comment on above: Performed By: #### M 200.1000, L509.7001, L101.9900, L501.6710 #### [facility] Laboratory [address] [place], [address] Absolute lymphocyte countOrd ered By: Inderjit Gillespie on 09-01-2024 Lymphocytes Auto (Unsp spec) [#/Vol] 0.62 10*3/uL Low 0.83-4.51 [facility] Absolute neutrophil countOrd ered By: Inderjit Gillespie on 09-01-2024 Neutrophils (Bld) [#/Vol] 11.3 10*3/uL High 2.0-7.7 [facility] Anion gap in Serum or Plasma Ordered By: Inderjit Gillespie on 09-01-2024 Anion gap [Moles/Vol] 10 mmol/L 5-15 [facility] Automated lymphocyte count a s percentage of total leukocytesOrdered By: Inderjit Gillespie on 09-01-2024 Lymphocytes/100 WBC Auto (Unsp spec) 4.8 % Low 19-41 [facility] BUN/creatinine ratioOrdered By: Inderjit Gillespie on 09-01-2024 Urea nitrogen/Creatinine [Mass ratio] 21.6 mg/mg High - [facility] Basic Metabolic Profile (BMP )on 09-01-2024 BUN/CRE 21.6 RATIO High 01-09 [facility] Comment on above: Performed By: #### M 200.1000, L509.7001, L101.9900, L501.6710 #### [facility] Laboratory [address] [place], [address] Calcium [Mass/Vol] 8.8 mg/dL Normal 7.6-11.0 [facility] Comment on above: Performed By: #### M 200.1000, L509.7001, L101.9900, L501.6710 #### [facility] Laboratory [address] [place], [address] Chloride [Moles/Vol] 105 mmol/L Normal 98-108 [facility] Comment on above: Performed By: #### M 200.1000, L509.7001, L101.9900, L501.6710 #### [facility] Laboratory [address] [place], [address] CO2 [Moles/Vol] 24.3 mmol/L Normal 21.0-32.0 [facility] Comment on above: Performed By: #### M 200.1000, L509.7001, L101.9900, L501.6710 #### [facility] Laboratory [address] [place], [address] Creatinine [Mass/Vol] 0.77 mg/dL Normal 0.70-1.20 [facility] Comment on above: Performed By: #### M 200.1000, L509.7001, L101.9900, L501.6710 #### [facility] Laboratory [address] [place], [address] ECRCL 68.71 ml/min Normal 50-250 [facility] Comment on above: Performed By: #### M 200.1000, L509.7001, L101.9900, L501.6710 #### [facility] Laboratory [address] [place], [address] GAP 10 Normal 5-15 [facility] Comment on above: Performed By: #### M 200.1000, L509.7001, L101.9900, L501.6710 #### [facility] Laboratory [address] [place], [address] GFR/1.73 sq M.predicted among non-blacks MDRD (S/P/Bld) [Vol rate/Area] 86 mL/min/{1.73_m2} Normal >60 [facility] Comment on above: Result Comment: mL/m in/1.73m2 CKD-EPI Creatinine Equation (2020) Performed By: #### M 200.1000, L509.7001, L101.9900, L501.6710 #### [facility] Laboratory [address] [place], [address] Glucose [Mass/Vol] 112 mg/dL High 70-99 [facility] Comment on above: Performed By: #### M 200.1000, L509.7001, L101.9900, L501.6710 #### [facility] Laboratory [address] [place], [address] Potassium [Moles/Vol] 3.7 mmol/L Normal 3.3-5.1 [facility] Comment on above: Performed By: #### M 200.1000, L509.7001, L101.9900, L501.6710 #### [facility] Laboratory [address] [place], [address] Sodium [Moles/Vol] 139 mmol/L Normal 133-145 [facility] Comment on above: Performed By: #### M 200.1000, L509.7001, L101.9900, L501.6710 #### [facility] Laboratory [address] [place], [address] Urea nitrogen [Mass/Vol] 17 mg/dL Normal 4-19 [facility] Comment on above: Performed By: #### M 200.1000, L509.7001, L101.9900, L501.6710 #### [facility] Laboratory [address] [place], [address] Basophil percentageOrdered B y: Inderjit Gillespie on 09-01-2024 Basophils/100 WBC (Bld) 0.4 % 0-1 [facility] Bilirubin Test strip Ql (U)O rdered By: Inderjit Gillespie on 09-01-2024 Bilirubin Ql (U) Negative Negative [facility] Blood cultureOrdered By: Magnolia Black on 09-01-2024 Bacteria identified Cx Nom (Bld) No growth in 5 days. [facility] Brain/Head without Contrasto n 09-01-2024 Brain/Head without Contrast [facility] Imaging Services [address] [facility] [place], [place] [address] Brain/Head without Contrast MR#: [id number] Acct: [id number] Name: ROBY FLORES Rep #: [id number] : 1935 M 89 From: Jose harris MD PCP: Dr. Stas Mora MD Status: REG ER Study: Brain/Head without Contrast Date of Exam: 08/21 05/17 Exam# [id number] Ordering Dr: Inderjit Gillespie MD PROCEDURE: BRAIN/HEAD [...] of the left maxillary sinus. Reading Location: [place] [address] CC: Dr. Inderjit Gillespie MD; Dr. Stas Mora MD Human Projectile: Signed Normal [facility] CBC W/Diff, Automatedon 08-21 Absolute Lymph 0.62 X10 3/uL Low 0.83-4.51 [facility] Comment on above: Performed By: #### M 200.1000, L509.7001, L101.9900, L501.6710 #### [facility] Laboratory [address] [place], [address] Absolute Neut 11.3 X10 3/uL High 2.0-7.7 [facility] Comment on above: Performed By: #### M 200.1000, L509.7001, L101.9900, L501.6710 #### [facility] Laboratory [address] [place], [address] Basophils/100 WBC (Bld) 0.4 % Normal 0-1 [facility] Comment on above: Performed By: #### M 200.1000, L509.7001, L101.9900, L501.6710 #### [facility] Laboratory [address] [place], [address] Eosinophils/100 WBC (Bld) 1.2 % Normal 0-5 [facility] Comment on above: Performed By: #### M 200.1000, L509.7001, L101.9900, L501.6710 #### [facility] Laboratory [address] [place], [address] Erythrocyte distribution width (RBC) [Ratio] 17.2 % High 11.6-14.6 [facility] Comment on above: Performed By: #### M 200.1000, L509.7001, L101.9900, L501.6710 #### [facility] Laboratory [address] [place], [address] Hematocrit (Bld) [Volume fraction] 36.8 % Low 40-54 [facility] Comment on above: Performed By: #### M 200.1000, L509.7001, L101.9900, L501.6710 #### [facility] Laboratory [address] [place], [address] Hemoglobin (Bld) [Mass/Vol] 11.6 g/dL Low 13.0-16.5 [facility] Comment on above: Performed By: #### M 200.1000, L509.7001, L101.9900, L501.6710 #### [facility] Laboratory [address] [place], [address] IG% 0.400 Normal 0.0-0.9 [facility] Comment on above: Result Comment: IG% - Immature Granulocytes (promyelocytes, myelocytes and metamyelocytes) > 1% indicates that a LEFT SHIFT is Present. Performed By: #### M 200.1000, L509.7001, L101.9900, L501.6710 #### [facility] Laboratory [address] [place], [address] Lymphocytes/100 WBC (Bld) 4.8 % Low 19-41 [facility] Comment on above: Performed By: #### M 200.1000, L509.7001, L101.9900, L501.6710 #### [facility] Laboratory [address] [place], [address] MCH (RBC) [Entitic mass] 24.6 pg Low 27.0-32.0 [facility] Comment on above: Performed By: #### M 200.1000, L509.7001, L101.9900, L501.6710 #### [facility] Laboratory [address] [place], [address] MCHC (RBC) [Mass/Vol] 31.5 g/dL Low 32-36 [facility] Comment on above: Performed By: #### M 200.1000, L509.7001, L101.9900, L501.6710 #### [facility] Laboratory [address] [place], [address] MCV (RBC) [Entitic vol] 78.0 fL Low 80-94 [facility] Comment on above: Performed By: #### M 200.1000, L509.7001, L101.9900, L501.6710 #### [facility] Laboratory [address] [place], [address] Monocytes/100 WBC (Bld) 5.7 % Normal 0-10 [facility] Comment on above: Performed By: #### M 200.1000, L509.7001, L101.9900, L501.6710 #### [facility] Laboratory [address] [place], [address] Neutrophils/100 WBC (Bld) 87.5 % High 47-70 [facility] Comment on above: Performed By: #### M 200.1000, L509.7001, L101.9900, L501.6710 #### [facility] Laboratory [address] [place], [address] Nucleated RBC (Bld) [#/Vol] 0 10*3/uL Normal 0-5 [facility] Comment on above: Performed By: #### M 200.1000, L509.7001, L101.9900, L501.6710 #### [facility] Laboratory [address] [place], [address] Platelet mean volume (Bld) [Entitic vol] 9.4 fL Normal 6.2-12.0 [facility] Comment on above: Performed By: #### M 200.1000, L509.7001, L101.9900, L501.6710 #### [facility] Laboratory [address] [place], [address] Platelets (Bld) [#/Vol] 258 10*3/uL Normal 150-450 [facility] Comment on above: Performed By: #### M 200.1000, L509.7001, L101.9900, L501.6710 #### [facility] Laboratory [address] [place], [address] RBC (Bld) [#/Vol] 4.72 10*6/uL Normal 4.6-6.2 [facility] Comment on above: Performed By: #### M 200.1000, L509.7001, L101.9900, L501.6710 #### [facility] Laboratory [address] [place], [address] RDW SD 48.2 fl High 35.1-43.9 [facility] Comment on above: Performed By: #### M 200.1000, L509.7001, L101.9900, L501.6710 #### [facility] Laboratory [address] [place], [address] WBC (Bld) [#/Vol] 12.9 10*3/uL High 4.4-11.0 [facility] Comment on above: Performed By: #### M 200.1000, L509.7001, L101.9900, L501.6710 #### [facility] Laboratory [address] [place], [address] Gene 09-01-2024 [place] Telephone (PHMEWO) ROBY FLORES ([id number]) 1935 M Date Time Provider Department 09/01/24 RUSSELL AGUAYO During your visit today, we recorded the following information about you: Russell Aguayo [facility] 09/01/2024 10:01 AM Signed PCP [...] affordable alvarado using Good Rx coupons. At [facility] (his current pharmacy), he can get a 1 mo supply for ~$30. If he switches the prescription to [facility], he can get a 1 mo supply for ~$20. See coupons below. Rivastigmine patches are also available via [employer]. It appears the cheapest option is through [facility], in which he can get 30 patches for $52. Coupon also below. Sending to PCP to review and provide patient with coupon card information. Russell Aguayo, Saúl, [facility] Primary Care Clinical Pharmacist Memantine coupon at [facility] Memantine coupon at [facility] Rivastigmine patches coupon at [facility] Luciana Cisneros MD 09/01/2024 1:27 PM Signed Rahul Chau, Staff please let patient know what the pharmacist as opined on. 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 COVID 19 AG RAPID (EMILY Gomez)on 09-01-2024 [...] RAPID METHOD BinaxNow COVID19 Ag Card Normal [facility] Comment on above: Performed By: #### M 200.1000, L509.7001, L101.9900, L501.6710 #### [facility] Laboratory [address] [place], [address] COVID-19 virus antigen assay Ordered By: Marta Black on 09-01-2024 SARS-CoV-2 (COVID-19) Ag IA.rapid Ql (Resp) [facility] CRPon 09-01-2024 C-REACTIVE PROT 26.80 mg/L High 0.0-3.0 [facility] Comment on above: Performed By: #### M 200.1000, L509.7001, L101.9900, L501.6710 #### [facility] Laboratory [address] [facility] [place], [address] Carbon dioxide, total [Moles /volume] in Central venous bloodOrdered By: Inderjit Gillespie on 09-01-2024 CO2 [Moles/Vol] 24.3 mmol/L 21.0-32.0 [facility] Chest 1 View (Portable)on Chest 1 View (Portable) [facility] Imaging Services [address] [place] [address] Chest 1 View (Portable) MR#: [id number] Acct: [id number] Name: ROBY FLORES Rep #: [id number] : 1935 M 89 From: Jose harris MD PCP: Dr. Stas Mora MD Status: REG ER Study: Chest 1 View (Portable) Date of Exam: 09/01/24 Exam# [id number] Ordering Dr: Inderjit Gillespie MD PROCEDURE: CHEST [...] No acute abnormality is seen. Reading Location: [place] [address] CC: Dr. Inderjit Gillespie MD; Dr. Stas Mora MD Human Projectile: Signed Normal [facility] Chloride assayOrdered By: Aries Gillespie on 09-01-2024 Chloride [Moles/Vol] 105 mmol/L 98-108 [facility] Emergency Department Summary on 09-01-2024 Emergency Department Summary [facility] Medical Records Department [address] [place] [address] Emergency Department Summary 09/01/24 MR#: [id number] Acct: [id number] Name: ROBY FLORES Rep #: [id number] : 1935 89 From: Inderjit Gillespie MD [...] Prior similar symptoms: No Recent Ill[facility] Medical History Chronic anticoagulation TIA (transient ischemic [...] shoulders elbows and wrist. 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 Neurologically he is awake alert. Answering [...] Air 09/01/24 (more content not included)... Normal [facility] Eosinophil percentageOrdered By: Inderjit Gillespie on 09-01-2024 Eosinophils/100 WBC (Bld) 1.2 % 0-5 [facility] Erythrocyte Sed Rateon 09-01 SED RATE 2 mm/hr Normal 0-20 [facility] Comment on above: Performed By: #### M 200.1000, L509.7001, L101.9900, L501.6710 #### [facility] Laboratory [address] [place], [place], [address] Erythrocyte distribution wid th ratioOrdered By: Inderjit Gillespie on 09-01-2024 Erythrocyte distribution width (RBC) [Ratio] 17.2 % High 11.6-14.6 [facility] Erythrocyte distribution wid th standard deviationOrdered By: Inderjit Gillespie on 09-01-2024 Erythrocyte distribution width (RBC) [Ratio] 48.2 fl High 35.1-43.9 [facility] Erythrocyte sedimentation ra teOrdered By: Marta Black on 09-01-2024 ESR (Bld) [Velocity] 2 mm/h 0-20 [facility] Glomerular filtration rate ( GFR) estimation/1.73 sq m using serum, plasma, or whole bOrdered By: Inderjit Gillespie on 09-01-2024 GFR/1.73 sq M.predicted among non-blacks MDRD (S/P/Bld) [Vol rate/Area] 86 mL/min/{1.73_m2} >60 [facility] Comment on above: mL/min/1.73m2 CKD-EP I Creatinine Equation (2020) H AND P Exam - Hospitaliston 09-01-2024 H&P Exam - Hospitalist [facility] Medical Records Department [address] [place] [address] H P Exam - Hospitalist 09/01/24 1018 MR#: [id number] Acct: [id number] Name: ROBY FLORES Rep #: [id number] : 1935 89 From: Kathy Wells MD PCP: Dr. Stas Mora MD Status:ADM GERMAN Location: [facility] CK380-7 HPI - General General Date of Admission: [...] in the ED were BP of 180/89, IL of 87, RR of 18 and temp [...] weakness due to mechanical fall. [facility] Medical History Chronic anticoagulation TIA (transient ischemic [...] 99 Oxy (more content not included)... Normal [facility] Hematocrit Auto (Bld) [Volum e fraction]Ordered By: Inderjit Gillespie on 09-01-2024 Hematocrit (Bld) [Volume fraction] 36.8 % Low 40-54 [facility] Hemoglobin measurementOrdere d By: Inderjit Gillespie on 09-01-2024 Hemoglobin (Bld) [Mass/Vol] 11.6 g/dL Low 13.0-16.5 [facility] Hips B/L min 2 views w/ Pelv adolfo 09-01-2024 Hips B/L min 2 views w/ Pelvis [facility] Imaging Services [address] [place] [address] Hips B/L min 2 views w/ Pelvis MR#: [id number] Acct: [id number] Name: ROBY FLORES Rep #: [id number] : 1935 M 89 From: Jose harris MD PCP: Dr. Stas Mora MD Status: REG ER Study: Hips B/L min 2 views w/ Pelvis Date of Exam: 0 09/01/24 Exam# [id number] Ordering Dr: Inderjit Gillespie MD PROCEDURE: HIPS [...] No fracture or dislocation present. Reading Location: [place] [address] CC: Dr. Inderjit Gillespie MD; Dr. Stas Mora MD Human Projectile: Signed Normal [facility] Immature granulocytes/100 WB C Auto (Bld)Ordered By: Inderjit Gillespie on 09-01-2024 Immature granulocytes/100 WBC (Bld) 0.400 % 0.0-0.9 [facility] Comment on above: IG% - Immature Granu locytes (promyelocytes, myelocytes and metamyelocytes) > 1% indicates that a LEFT SHIFT is Present. International normalized rat io (INR) calculationOrdered By: Inderjit Gillespie on 09-01-2024 INR Coag (Bld) [Relative time] 1.8 {INR} [facility] Ketones Test strip Ql (U)Ord ered By: Inderjit Gillespie on 09-01-2024 Ketones Ql (U) Negative Negative [facility] L509.7001on 09-01-2024 Procalcitonin 0.07 ng/mL Normal <=0.10 [facility] Comment on above: Result Comment: Inte rpretation: [...] #### M 200.1000, L509.7001, L101.9900, L501.6710 #### [facility] Laboratory [place], [address] MCV (mean corpuscular volume ) determinationOrdered By: Inderjit Gillespie on 09-01-2024 MCV (RBC) [Entitic vol] 78.0 fL Low 80-94 [facility] Mean corpuscular hemoglobin (MCH) determinationOrdered By: Inderjit Gillespie on 09-01-2024 MCH (RBC) [Entitic mass] 24.6 pg Low 27.0-32.0 [facility] Mean corpuscular hemoglobin concentration (MCHC) determinationOrdered By: Inderjit Gillespie on 09-01-2024 MCHC (RBC) [Mass/Vol] 31.5 g/dL Low 32-36 [facility] Mean platelet volume determi nationOrdered By: Inderjit Gillespie on 09-01-2024 Platelet mean volume (Bld) [Entitic vol] 9.4 fL 6.2-12.0 [facility] Microscopic analysis of urin e for red blood cells (RBC)Ordered By: Inderjit Gillespie on 09-01-2024 Microscopic analysis of urine for red blood cells (RBC) 0 SEEN /hpf 0-5 [facility] Monocyte percentageOrdered B y: Inderjit Gillespie on 09-01-2024 Monocytes/100 WBC (Bld) 5.7 % 0-10 [facility] Mucus LM Ql (Urine sed)Order ed By: Inderjit Gillespie on 09-01-2024 Mucus Ql (Urine sed) 0 SEEN /hpf [facility] Neutrophil percentageOrdered By: Inderjit Gillespie on 09-01-2024 Neutrophils/100 WBC (Bld) 87.5 % High 47-70 [facility] Nitrite Test strip Ql (U)Ord ered By: Inderjit Gillespie on 09-01-2024 Nitrite Ql (U) Negative Negative [facility] Nucleated red blood cell per centageOrdered By: Inderjit Gillespie on 09-01-2024 Nucleated RBC/100 WBC (Bld) [Ratio] 0 % 0-5 [facility] Platelet countOrdered By: Aries Gillespie on 09-01-2024 Platelets (Bld) [#/Vol] 258 10*3/uL 150-450 [facility] [facility] [place] Potassium measurement (mass/ volume)Ordered By: Inderjit Gillespie on 09-01-2024 Potassium (Unsp spec) [Mass/Vol] 3.7 mmol/L 3.3-5.1 [facility] [place] Procalcitonin [Mass/volume] in Serum or Plasma by ImmunoassayOrdered By: Marta Black on 09-01-2024 Procalcitonin IA [Mass/Vol] 0.07 ng/mL <0.11 [facility] [place] Comment on above: Interpretation:<0.10 -0.25 ng/mL: Antibiotic [...] Protein Ql (U) 15 mg/dl High Negative [facility] [place] Prothrombin Time w/INRon INR Coag (PPP) [Relative time] 1.8 {INR} Normal [facility] [place] Comment on above: Performed By: #### M 200.1000, L509.7001, L101.9900, L501.6710 #### [facility] [place] Laboratory [address] [place], [address] PT Coag (PPP) [Time] 21.4 s High 11.7-14.9 [facility] Comment on above: Performed By: #### M 200.1000, L509.7001, L101.9900, L501.6710 #### [facility] [place] Laboratory [address] [place], [address] Prothrombin timeOrdered By: Inderjit Gillespie on 09-01-2024 PT Coag (PPP) [Time] 21.4 s High 11.7-14.9 [facility] RBC Auto (Bld) [#/Vol]Ordere d By: Inderjit Gillespie on 09-01-2024 RBC (Bld) [#/Vol] 4.72 10*6/uL 4.6-6.2 [facility] Respiratory pathogens detect ion panel by molecular detection methodOrdered By: Marta Black on 09-01-2024 Respiratory pathogens DNA and RNA panel LOLI+probe (Resp) [facility] [place] Serum creatinine measurement (mass/volume)Ordered By: Inderjit Gillespie on 09-01-2024 Creatinine [Mass/Vol] 0.77 mg/dL 0.70-1.20 [facility] Serum glucose measurement (m ass/volume)Ordered By: Inderjit Gillespie on 09-01-2024 Glucose [Mass/Vol] 112 mg/dL High 70-99 [facility] Serum or plasma C reactive p rotein measurement (mass/volume)Ordered By: Marta Black on 09-01-2024 CRP [Mass/Vol] 26.80 mg/L High 0.0-3.0 [facility] [place] Serum or plasma calcium alvaro urement (mass/volume)Ordered By: Inderjit Gillespie on 09-01-2024 Calcium [Mass/Vol] 8.8 mg/dL 7.6-11.0 [facility] Serum or plasma urea nitroge n measurement (mass/volume)Ordered By: Inderjit Gillespie on 09-01-2024 Urea nitrogen [Mass/Vol] 17 mg/dL 4-19 [facility] [place] Sodium levelOrdered By: Inderjit Gillespie on 09-01-2024 Sodium [Moles/Vol] 139 mmol/L 133-145 [facility] Squamous epithelial cells de tection in urine sediment by light microscopyOrdered By: Inderjit Gillespie on 09-01-2024 Epithelial cells.squamous LM Ql (Urine sed) 0 SEEN /hpf 0-5 [facility] [place] Urinalysis, Completeon 09-01 BACTERIA 0 SEEN Normal None Seen [facility] [place] Comment on above: Order Comment: CLEAN CATCH Performed By: #### L 400.0001 #### [facility] Laboratory [address] [place], [address] EPI,SQUAMOUS 0 SEEN Normal 0-5 [facility] [place] Comment on above: Order Comment: CLEAN CATCH Performed By: #### L 400.0001 #### [facility] [place] Laboratory [address] [place], [address] Mucus Ql (Urine sed) 0 SEEN Normal [facility] Comment on above: Order Comment: CLEAN CATCH Performed By: #### L 400.0001 #### [facility] [place] Laboratory [address] [place], [place], [id number] RBC 0 SEEN Normal 0-5 [facility] [place] Comment on above: Order Comment: CLEAN CATCH Performed By: #### L 400.0001 #### [facility] [place] Laboratory [address] [place], [address] WBC 0 SEEN Normal 0-5 [facility] [place] Comment on above: Order Comment: CLEAN CATCH Performed By: #### L 400.0001 #### [facility] [place] Laboratory [address] [place], [place], [id number] Urine clarityOrdered By: Mario Gillespie on 09-01-2024 Clarity (U) Clear Clear [facility] Urine color determinationOrd ered By: Inderjit Gillespie on 09-01-2024 Color (U) Yellow Yellow [facility] [place] Urine glucose detectionOrder ed By: Inderjit Gillespie on 09-01-2024 Glucose Ql (U) Normal mg/dl Normal [facility] [place] Urine leukocyte esterase det ection by dipstickOrdered By: Inderjit Gillespie on 09-01-2024 Leukocyte esterase Test strip Ql (U) Negative Negative [facility] [place] Urine pHOrdered By: Inderjit pack on 09-01-2024 pH (U) 8.0 [pH] 5.0 - 8.0 [facility] [place] Urine sediment bacteria coun t by microscopy (number/high power field)Ordered By: Inderjit Gillespie on 09-01-2024 Bacteria LM.HPF (Urine sed) [#/Area] 0 /[HPF] None Seen [facility] Urine specific gravity measu rementOrdered By: Inderjit Gillespie on 09-01-2024 Specific gravity (U) [Rel density] 1.010 1.002-1.03 0 [facility] Urine urobilinogen measureme ntOrdered By: Inderjit Gillespie on 09-01-2024 Urobilinogen Ql (U) 4 mg/dl High Normal [facility] White blood cell (WBC) count Ordered By: Inderjit Gillespie on 09-01-2024 WBC (Bld) [#/Vol] 12.9 10*3/uL High 4.4-11.0 [facility] White blood cell countOrdere d By: Inderjit Gillespie on 09-01-2024 White blood cell count 0 SEEN /hpf 0-5 [facility] [place] CNOVon 08-31-2024 CNOV Office Visit (GERIWR ) ROBY FLORES ([id number]) 1935 M Date Time Provider Department 08/31/24 [...] and believing his brother, who lives in [place], was present. 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 Additionally, he [...] tablet wa (more content not included)... Normal [facility] Gene 08-31-2024 CNPN Telephone (DARIENMTE) ROBY FLORES ([id number]) 1935 M Date Time Provider Department 08/31/24 CORETTA JALLOH During your visit today, we recorded the following information about you: Coretta Jalloh RPh 08/31/2024 2:13 PM Signed [facility] Ambulatory Pharmacy Anticoagulation Clinic Anticoagulation Episode Summary Anticoagulation Care Providers Provider Role Specialty Phone number Stas Mora MD Referring Family Medicine [phone] Roby Garcia Sandra is a 89 year old year old [...] ALLERGIES No Known Allergies Indication for Warfarin: 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 Paroxysmal atrial fibrillation [...] Pharmacy Anticoagulation Clinic Pharmacy Anticoagulation Clinic Pager: [phone]. Coretta Jalloh RPh 09/28/2024 11:30 AM Signed Per TE on 09/21, pt is in [facility] for rehab. He has been for for nearly 3 weeks now. Will check back next week before we call Amria Guadalupe. Will watch for notes of discharge. Coretta Tarcy, [facility] Gaelyaquelin Coretta [facility] 10/05/2024 2:05 PM Signed Spoke to Maria Guadalupe. She said he is at an [facility] Facility and they are managing his AC but she isn't aware of results. She isn't sure of discharge timing. She said maybe check back in a few weeks. Will check back in October for any updates. Coretta Jalloh [facility] Adrian (Forensic Economist)Elana 10/27/2024 4:17 PM Signed Updating [facility] L[facility] / Rehab list. Called and stp patient's significant other, Maria Guadalupe. She stated patient is still in SNF at this time. She was agreeable to f/u in a few weeks. Tracker updated for f/u in 2-3 weeks. Elana Campbell CPhT (Managing Member) Pharmacy Anticoagulation Clinic Allergies As of Date: 08/31/2024 (No Known Allergies) Date Reviewed: 08/31/2024 Reviewed by: Wendy Faulkner MA - Fully Assessed Reason for Visit: Anticoagulation Telephone Fu [148] Cmt: Home INR result Primary Visit Diagnosis:MCFP current use of anticoagulant [Z79.01] Other Visit [...] Lip les (more content not included)... Normal [facility] PT panel Coag (PPP)on 2024 INR Coag (PPP) [Relative time] 1.9 {INR} High 0.9-1.3 [facility] Comment on above: Order Comment: Speci men Type: BLOOD SPECIMENOrdering Facility: [facility] Address: [address] [id number] Result Comment: Mary min K Antagonist (VKA) Therapeutic Range: INR 2 to 3 (Target INR of 2.5) Note: For patients treated with VKA drugs, such as warfarin, the [employer] 2012 Guideline recommends [...] Chest 2012, 141:7S-47S Avel RA, et al. [facility] 2017, 70: 252-289 Performed By: #### 3 4528-0 ####[facility]ITAL[facility]ER[facility] [id number] [address] [place] PT Coag (PPP) [Time] 19.2 s High <13.1 [facility] Comment on above: Order Comment: Speci men Type: BLOOD SPECIMENOrdering Facility: [facility] Address: [address] [place] [address] Performed By: #### 3 4528-0 ####[facility] [id number] [address] [place] CNPMarizol 08-03-2024 CNPN Telephone (PHAMTE) ROBY FLORES ([id number]) 1935 M Date Time Provider Department 08/03/24 CORETTA JALLOH During your visit today, we recorded the following information about you: Coretta Jalloh [facility] 08/03/2024 10:52 AM Signed [facility] Ambulatory Pharmacy Anticoagulation Clinic Anticoagulation Episode Summary Anticoagulation Care Providers Provider Role Specialty Phone number Stas Mora MD Referring Family Medicine [phone] Roby Flores is a 88 year old [...] ALLERGIES No Known Allergies Indication for Warfarin: 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 Coretta Jalloh [facility] Clinical Pharmacist, Pharmacy Anticoagulation Clinic Pharmacy Anticoagulation Clinic Pager: [phone]. Adrian (Netviewer)Elana 08/03/2024 11:01 AM Signed PATIENT CALL Patient [...] verbalized understanding. Will route to [facility] as FYI. Elana Campbell (Netviewer) Coretta Jalloh [facility] 08/03/2024 11:20 AM Signed I have reviewed the below recommendations and agree with plan. 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 [Z79.01]09/22/2016 Paroxysmal atrial fibrillation (HCC) [I48.0] 09/22/2016 Hyperlipidemia [E78.5] 08/26/2022 Encounter Status:Closed by CORETTA JALLOH on 08/03/24 Normal [facility] PT panel Coag (PPP)on 2024 INR Coag (PPP) [Relative time] 2.5 {INR} High 0.9-1.3 [facility] Comment on above: Order Comment: Speci men Type: BLOOD SPECIMENOrdering Facility: [facility] Address: [address] [place] [address] Result Comment: Mary min K Antagonist (VKA) Therapeutic Range: INR 2 to 3 (Target INR of 2.5) Note: For patients treated with VKA drugs, such as warfarin, the [employer] 2012 Guideline recommends [...] Chest 2012, 141:7S-47S Avel CARDONA, et al. [facility] 2017, 70: 252-289 Performed By: #### 3 4528-0 ####[facility] [id number] [place] [address] [place] PT Coag (PPP) [Time] 24.3 s High <13.1 [facility] Comment on above: Order Comment: Speci men Type: BLOOD SPECIMENOrdering Facility: [facility] Address: [address] [place] [address] Performed By: #### 3 4528-0 ####[facility] [id number] [address] OF [facility] CNOVon 07-28-2024 CNOV Office Visit (FAMPWS ) ROBY FLORES ([id number]) 1935 M Date Time Provider Department 07/28/24 [...] Coronary atherosclerosis of unspecified type of vessel, chuloonawick or graft Coronary artery disease Other and [...] Past Histories independently gathered by the clinical business support assistant and the remaining scribed note accurately describes [...] - Fully Assessed Reason for Visit: Lump [[id number]] Cmt: Elbow Primary Visit Diagnosis:Bursitis of right elbow, unspecified bursa [M70.31] Prescriptions as of 07/28/2024 - memantine (NAMENDA) 10 mg tablet Take 1 tablet by mouth two times a day. - atorvastatin (LIPITOR) 40 mg tablet Take 1 tablet by mouth daily at bedtime. - warfarin (COUMADIN) 2.5 mg tablet Take as directed (more content not included)... 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 [Z79.01]09/22/2016 Paroxysmal atrial fibrillation (HCC) [I48.0] 09/22/2016 Hyperlipidemia [E78.5] 08/26/2022 Encounter Status:Closed by WENDY FAULKNER on 07/18/24 Normal [facility] CNPNon 07-06-2024 CNPN Telephone (PHAMTE) ROBY FLORES ([id number]) 1935 M Date Time Provider Department 07/06/24 CORETTA JALLOH PHAMTE During your visit today, we recorded the following information about you: Coretta Jalloh [facility] 07/06/2024 10:16 AM Signed [facility] Ambulatory Pharmacy Anticoagulation Clinic Anticoagulation Episode Summary Anticoagulation Care Providers Provider Role Specialty Phone number Stas Mora MD Referring Family Medicine [phone] Roby Radha Flores is a 88 year [...] ALLERGIES No Known Allergies Indication for Warfarin: 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 Coretta Jalloh [facility] Clinical Pharmacist, Pharmacy Anticoagulation Clinic Pharmacy Anticoagulation Clinic Pager: [phone]. 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 [Z79.01]09/22/2016 Paroxysmal atrial fibrillation (HCC) [I48.0] 09/22/2016 Hyperlipidemia [E78.5] 08/26/2022 Encounter Status:Closed by CORETTA JALLOH on 07/06/24 Normal [facility] PT panel Coag (PPP)on 2024 INR Coag (PPP) [Relative time] 2.1 {INR} High 0.9-1.3 [facility] Comment on above: Order Comment: Speci men Type: BLOOD SPECIMENOrdering Facility: [facility] Address: [address] [place], [place] [id number] Result Comment: Mary min K Antagonist (VKA) Therapeutic Range: INR 2 to 3 (Target INR of 2.5) Note: For patients treated with VKA drugs, such as warfarin, the [employer] 2012 Guideline recommends [...] Chest 2012, 141:7S-47S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 Encounter Status:Closed by JENNA FIT[facility]PATRICK [facility]04/[facility] Tele[facility] (PHAMTE) ALYSSA FLORESTON Radha ([id number]) 1935 M Date Time Provider Department 12/24/23 ELISE PAREDES During your visit today, we recorded the following information about you: Elise Paredes, [facility] 12/24/2023 2:32 PM Signed [facility] Ambulatory Pharmacy Anticoagulation Clinic Anticoagulation Episode Summary Anticoagulation Care Providers Provider Role Specialty Phone number Stas Mora MD Referring Family Medicine [phone] Roby Garcia Sandra is a 88 year [...] ALLERGIES No Known Allergies Indication 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 MCFP current use of anticoagulant [Z79.01]09/22/2016 Paroxysmal atrial fibrillation (HCC) [I48.0] 09/22/2016 Hyperlipidemia [E78.5] 08/26/2022 Encounter Status:Closed by ELISE PAREDES on 12/24/23 Normal [facility] PT panel Coag (PPP)on 2023 INR Coag (PPP) [Relative time] 2.2 {INR} High 0.9-1.3 [facility] Comment on above: Order Comment: Speci men Type: BLOOD SPECIMENOrdering Facility: [facility] Address: [address] [place] [address] Result Comment: Mary min K Antagonist (VKA) Therapeutic Range: INR 2 to 3 (Target INR of 2.5) Note: For patients treated with VKA drugs, such as warfarin, the [employer] 2012 Guideline recommends [...] Chest 2012, 141:7S-47S Avel RA, et al. [facility] 2017, 70: 252-289 Performed By: #### 3 4528-0 ####[facility] [id number] [place] [address] [place] PT Coag (PPP) [Time] 22.1 s High 9.7-13.0 [facility] Comment on above: Order Comment: Speci men Type: BLOOD SPECIMENOrdering Facility: [facility] Address: [address] [place] [address] Performed By: #### 3 4528-0 ####[facility] [id number] [address] [place] CNPMarizol 12-10-2023 CNPN Telephone (PHAMTE) ROBY FLORES ([id number]) 1935 M Date Time Provider Department 12/10/23 ELISE PAREDES During your visit today, we recorded the following information about you: Elise Paredes [facility] 12/10/2023 2:21 PM Signed [facility] Ambulatory Pharmacy Anticoagulation Clinic Anticoagulation Episode Summary Anticoagulation Care Providers Provider Role Specialty Phone number Stas Mora MD Referring Family Medicine [phone] Roby Garcia Sandra is a 88 year [...] ALLERGIES No Known Allergies Indication for Warfarin: MCFP current use of anticoagulant Paroxysmal atrial fibrillation (hcc) Anticoagulation Episode Summary Current INR goal: 2.0-3.0 Assessment: INR result of 1.9 is SUBtherapeutic due to: unknown cause - did not speak to patient Plan: Current Warfarin Dosing As of 12/10/2023 Full warfarin instructions: 2.5 mg every Sun; 3 mg all other days Left voice message for Gabby at [phone] (home) Advised patient to increase total weekly regimen Next lab INR check scheduled on 12/24/2023 Elise Paredes [facility] Clinical Pharmacist, Pharmacy Anticoagulation Clinic Pharmacy Anticoagulation Clinic Pager: [phone]. 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 [Z79.01]09/22/2016 Paroxysmal atrial fibrillation (HCC) [I48.0] 09/22/2016 Hyperlipidemia [E78.5] 08/26/2022 Encounter Status:Closed by ELISE PAREDES on 12/10/23 Normal [facility] PT panel Coag (PPP)on 2023 INR Coag (PPP) [Relative time] 1.9 {INR} High 0.9-1.3 [facility] Comment on above: Order Comment: Speci men Type: BLOOD SPECIMENOrdering Facility: [facility] Address: [address] [place] [address] Result Comment: Mary min K Antagonist (VKA) Therapeutic Range: INR 2 to 3 (Target INR of 2.5) Note: For patients treated with VKA drugs, such as warfarin, the [employer] 2012 Guideline recommends [...] Chest 2012, 141:7S-47S Avel RA, et al. [facility] 2017, 70: 252-289 Performed By: #### 3 4528-0 ####[facility] [id number] [place] [address] [place] PT Coag (PPP) [Time] 18.8 s High 9.7-13.0 [facility] Comment on above: Order Comment: Speci men Type: BLOOD SPECIMENOrdering Facility: [facility] Address: [address] [place] [address] Performed By: #### 3 4528-0 ####[facility] [id number] [place] [address] [place] CNOVon 11-26-2023 CNOV Office Visit (FAMPWS ) ROBY FLORES ([id number]) 1935 M Date Time Provider Department 11/26/23 [...] Coronary atherosclerosis of unspecified type of vessel, chuloonawick or graft Comment: Coronary artery disease No [...] 11/22/2023 Influ (more content not included)... Normal [facility] CNPNon 11-26-2023 CNPN Telephone (PHAMTE) ROBY FLORES ([id number]) 1935 M Date Time Provider Department 11/26/23 ELISE PAREDES PHAMAHENDRA During your visit today, we recorded the following information about you: Elise Paredes, [facility] 11/26/2023 4:23 PM Signed [facility] Ambulatory Pharmacy Anticoagulation Clinic Anticoagulation Episode Summary Anticoagulation Care Providers Provider Role Specialty Phone number Stas Mora MD Referring Family Medicine [phone] Roby Flores is a 88 year old [...] ALLERGIES No Known Allergies Indication for Warfarin: MCFP current use of anticoagulant Paroxysmal atrial fibrillation [...] to discuss further Elise Paredes [facility] Clinical Pharmacist, Pharmacy Anticoagulation Clinic Pharmacy Anticoagulation Clinic Pager: [phone]. Satish (Forensic Economist)Parmjit 11/26/2023 4:30 PM Signed Patient's spouse called regarding message. Patient typically takes warfarin in the morning but did not take any today. Patient's spouse doesn't understand why its low all the sudden. Denies changes in medication/ diet or missed doses. 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 Elise Paredes [facility] Clinical Pharmacist, Pharmacy Anticoagulation Clinic Pharmacy Anticoagulation Clinic Pager: [phone]. Allergies As of Date: 11/26/2023 (No Known Allergies) Date Reviewed: 11/26/2023 Reviewed by: Rosie Cruz MA - Fully Assessed Reason for Visit: Anticoagulation Telephone Fu [148] Cmt: Lab INR Primary Visit Diagnosis:MCFP current use of anticoagulant [Z79.01] (more content not included)... Normal [facility] PT panel Coag (PPP)on 2023 INR Coag (PPP) [Relative time] 1.5 {INR} High 0.9-1.3 [facility] Comment on above: Order Comment: Speci men Type: BLOOD SPECIMEN [facility] Address: [address] [place] [address] Result Comment: Mary min K Antagonist (VKA) Therapeutic Range: INR 2 to 3 (Target INR of 2.5) Note: For patients treated with VKA drugs, such as warfarin, the [employer] 2012 Guideline recommends [...] Chest 2012, 141:7S-47S Avel CARDONA et al. [facility] 2017, 70: 252-289 Performed By: #### 3 4528-0 #### [facility] CLIA [id number] [address] [place] [address] [place] PT Coag (PPP) [Time] 15.1 s High 9.7-13.0 [facility] Comment on above: Order Comment: Speci men Type: BLOOD SPECIMEN [facility] Address: [address] [place] [address] Performed By: #### 3 4528-0 #### [facility] CLIA [id number] [address] [place] [address] [place] CBC W Auto Differential pane l (Bld)on 06-04-2023 Basophils (Bld) [#/Vol] 0.06 10*3/uL <0.11 k/uL [facility] Basophils/100 WBC (Bld) 0.9 % [facility] Differential cell count method Nom (Bld) Auto [facility] Eosinophils (Bld) [#/Vol] 0.16 10*3/uL <0.46 k/uL [facility] Eosinophils/100 WBC (Bld) 2.4 % [facility] Erythrocyte distribution width (RBC) [Ratio] 15.7 % High 11.5 - 15.0 % [facility] Hematocrit (Bld) [Volume fraction] 34.9 % Low 39.0 - 51.0 % [facility] Hemoglobin (Bld) [Mass/Vol] 10.0 g/dL Low 13.0 - 17.0 g/dL [facility] Immature granulocytes (Bld) [#/Vol] <0.10 k/uL [facility] Immature granulocytes/100 WBC (Bld) 0.3 % [facility] Lymphocytes (Bld) [#/Vol] 1.65 10*3/uL 1.00 - 4.00 k/uL [facility] Lymphocytes/100 WBC (Bld) 24.8 % [facility] MCH (RBC) [Entitic mass] 20.9 pg Low 26.0 - 34.0 pg [facility] MCHC (RBC) [Mass/Vol] 28.7 g/dL Low 30.5 - 36.0 g/dL [facility] MCV (RBC) [Entitic vol] 73.0 fL Low 80.0 - 100.0 fL [facility] Monocytes (Bld) [#/Vol] 0.61 10*3/uL <0.87 k/uL [facility] Monocytes/100 WBC (Bld) 9.2 % [facility] Neutrophils (Bld) [#/Vol] 4.16 10*3/uL 1.45 - 7.50 k/uL [facility] Neutrophils/100 WBC (Bld) 62.4 % [facility] Nucleated RBC (Bld) [#/Vol] <0.01 k/uL [facility] Nucleated RBC/100 WBC (Bld) [Ratio] 0.0 /100 WBC [facility] Platelet mean volume (Bld) [Entitic vol] 10.7 fL 9.0 - 12.7 fL [facility] Platelets (Bld) [#/Vol] 297 10*3/uL 150 - 400 k/uL [facility] RBC (Bld) [#/Vol] 4.78 10*6/uL 4.20 - 6.00 m/uL [facility] WBC (Bld) [#/Vol] 6.66 10*3/uL 3.70 - 11.00 k/uL [facility] MRI BRAIN WO IVCONon 023 [facility] Absolute lymphocyte countOrd ered By: Brian Cunningham on 02-10-2023 Lymphocytes Auto (Unsp spec) [#/Vol] 0.99 10*3/uL 0.83-4.51 [facility] Basophil percentageOrdered B y: Brian Cunningham on 02-10-2023 Basophil percentage 0-5 SEEN /hpf 0-5 [facility] Basophils/100 WBC (Bld) 0.8 % 0-1 [facility] Chloride [Moles/Vol] 108 mmol/L 98-107 [facility] Eosinophils/100 WBC (Bld) 0.4 % 0-5 [facility] Glucose [Mass/Vol] 117 mg/dL 74-106 [facility] Comment on above: Fasting Glucose resu lt from 100 to 125 mg/dL suggests IMPAIRED HOMEOSTASIS per A.D.A. criteria. Neutrophils (Bld) [#/Vol] 5.8 10*3/uL 2.0-7.7 [facility] Neutrophils/100 WBC (Bld) 77.9 % 47-70 [facility] Potassium [Moles/Vol] 4.0 mmol/L 3.5-5.1 [facility] Sodium [Moles/Vol] 140 mmol/L 136-145 [facility] WBC (Bld) [#/Vol] 7.5 10*3/uL 4.4-11.0 [facility] Bilirubin Test strip Ql (U)O rdered By: Brian Cunningham on 02-10-2023 Bilirubin Ql (U) 1 mg/dL Negative [facility] Comment on above: COLOR OF URINE MAY A FFECT DIPSTICK RESULTS. Blood erythrocytes count (nu mber/volume)Ordered By: Brian Cunningham on 02-10-2023 RBC (Bld) [#/Vol] 4.42 10*6/uL 4.6-6.2 [facility] Blood hemoglobin measurement (mass/volume)Ordered By: Brian Cunningham on 02-10-2023 Hemoglobin (Bld) [Mass/Vol] 10.6 g/dL 13.0-16.5 [facility] Blood lymphocytes/100 leukoc ytesOrdered By: Brian Cunningham on 02-10-2023 Lymphocytes/100 WBC (Bld) 13.3 % 19-41 [facility] Blood monocytes/100 leukocyt esOrdered By: Brian Cunningham on 02-10-2023 Monocytes/100 WBC (Bld) 7.2 % 0-10 [facility] Blood platelet mean volumeOr dered By: Brian Cunningham on 02-10-2023 Platelet mean volume (Bld) [Entitic vol] 9.9 fL 6.2-12.0 [facility] Determination of erythrocyte mean corpuscular volume (MCV)Ordered By: Brian Cunningham on 02-10-2023 MCV (RBC) [Entitic vol] 81.9 fL 80-94 [facility] Hematocrit Auto (Bld) [Volum e fraction]Ordered By: Brian Cunningham on 02-10-2023 Hematocrit (Bld) [Volume fraction] 36.2 % 40-54 [facility] INR in Blood by Coagulation assayOrdered By: Brian Cunningham on 02-10-2023 INR Coag (Bld) [Relative time] 1.2 {INR} [facility] Influenza virus A and B and SARS-CoV-2 (COVID-19) Ag panel - Upper respiratory specimOrdered By: Brian Cunningham on 02-10-2023 SARS-CoV-2 (COVID-19) RNA LOLI+probe Ql (Resp) [facility] Ketones Test strip Ql (U)Ord ered By: Brian Cunningham on 02-10-2023 Ketones Ql (U) 5 mg/dl Negative [facility] Laboratory - Chemistry and C hemistry - challengeOrdered By: Brian Cunningham on 02-10-2023 CO2 [Moles/Vol] 30.0 mmol/L 21.0-32.0 [facility] Urea nitrogen/Creatinine [Mass ratio] 23.8 mg/mg 10-20 [facility] Laboratory - CoagulationOrde red By: Brian Cunningham on 02-10-2023 aPTT Coag (Bld) [Time] 26.3 s 24.1-36.2 [facility] PT Coag (PPP) [Time] 15.6 s 11.7-14.9 [facility] Laboratory - Hematology and Cell countsOrdered By: Brian Cunningham on 02-10-2023 Erythrocyte distribution width (RBC) [Entitic vol] 41.8 fL 35.1-43.9 [facility] Erythrocyte distribution width (RBC) [Ratio] 14.1 % 11.6-14.6 [facility] Immature granulocytes/100 WBC (Bld) 0.400 % 0.0-0.9 [facility] Comment on above: IG% - Immature Granu locytes (promyelocytes, myelocytes and metamyelocytes) > 1% indicates that a LEFT SHIFT is Present. MCH (RBC) [Entitic mass] 24.0 pg 27.0-32.0 [facility] Nucleated RBC/100 WBC (Bld) [Ratio] 0 % 0-5 [facility] MCHC Auto (RBC) [Mass/Vol]Or dered By: Brian Cunningham on 02-10-2023 MCHC (RBC) [Mass/Vol] 29.3 g/dL 32-36 [facility] Mucus LM Ql (Urine sed)Order ed By: Brian Cunningham on 02-10-2023 Mucus Ql (Urine sed) 0 SEEN /hpf [facility] Nitrite Test strip Ql (U)Ord ered By: Brian Cunningham on 02-10-2023 Nitrite Ql (U) Negative Negative [facility] No Panel InformationOrdered By: Brian Cunningham on 02-10-2023 Estimated Creatinine Clearance Calc 68.37 ml/min [facility] Estimated GFR (MDRD) Amer 118 mL/min >60 [facility] Comment on above: GFR Calc Estimated GFR (MDRD) Non-Af Amer 97 mL/min >60 [facility] Comment on above: Non- GFR Calc Troponin I High Sensitivity 16 pg/mL 3.0-78.0 [facility] Comment on above: Please Note: New [place] Units and Gender Specific Reference Ranges. For more information see Policy Stat Procedure [place] High Sensitivity Troponin (TNIH) and attachments. Platelets bldOrdered By: Caitlyn Cunningham on 02-10-2023 Platelets (Bld) [#/Vol] 328 10*3/uL 150-450 [facility] Protein Test strip Ql (U)Ord ered By: Brian Cunningham on 02-10-2023 Protein Ql (U) 15 mg/dl Negative [facility] Serum or plasma calcium alvaro urement (mass/volume)Ordered By: Brian Cunningham on 02-10-2023 Calcium [Mass/Vol] 8.9 mg/dL 8.5-10.1 [facility] Serum or plasma creatinine m easurement (mass/volume)Ordered By: Brian Cunningham on 02-10-2023 Creatinine [Mass/Vol] 0.80 mg/dL 0.70-1.30 [facility] Comment on above: The validity of the calculated GFR & GFRAA in patients over 70 years has not been determined. Clinical correlation is essential. Serum or plasma urea nitroge n measurement (mass/volume)Ordered By: Brian Cunningham on 02-10-2023 Urea nitrogen [Mass/Vol] 19 mg/dL 7-18 [facility] Squamous epithelial cells de tection in urine sediment by light microscopyOrdered By: Brian Cunningham on 02-10-2023 Epithelial cells.squamous LM Ql (Urine sed) 0 SEEN /hpf 0-5 [facility] Thin prep Papanicolaou smear with manual screeningOrdered By: Brian Cunningham on 02-10-2023 Thin prep Papanicolaou smear with manual screening 2 5-15 [facility] Urine blood detectionOrdered By: Brian Cunningham on 02-10-2023 RBC Ql (U) Negative Negative [facility] RBC Ql (U) 0 SEEN /hpf 0-5 [facility] Urine clarityOrdered By: Caitlyn Cunningham on 02-10-2023 Clarity (U) Clear Clear [facility] Urine color determinationOrd ered By: Brian Cunningham on 02-10-2023 Color (U) Yellow Yellow [facility] Urine glucose detectionOrder ed By: Brian Cunningham on 02-10-2023 Glucose Ql (U) Normal mg/dl Normal [facility] Urine leukocyte esterase det ection by dipstickOrdered By: Brian Cunningham on 02-10-2023 Leukocyte esterase Test strip Ql (U) 25 /ul Negative [facility] Urine pHOrdered By: Brian swain on 02-10-2023 pH (U) 6.5 [pH] 5.0 - 8.0 [facility] Urine sediment bacteria coun t by microscopy (number/high power field)Ordered By: Brian Cunningham on 02-10-2023 Bacteria LM.HPF (Urine sed) [#/Area] 0 /[HPF] None Seen [facility] Urine specific gravity measu rementOrdered By: Brian Cunningham on 02-10-2023 Specific gravity (U) [Rel density] 1.015 1.002-1.03 0 [facility] Urobilinogen Auto test strip Ql (U)Ordered By: Brian Cunningham on 02-10-2023 Urobilinogen Ql (U) 4 mg/dl Normal [facility] CT HEAD OR BRAIN W/O CONTRAS [...] 11/17/2022 4:26:20 PM Ordering Provider: [facility] XR Pelvis and Hip - left AP and Lateral frogon 05-21-2022 IMPRESSION: No acute fracture or hip dislocation Human Projectile: [id number] Transcribe Date/Time: May 21 2022 3:41P [...] IMPRESSION: No acute fracture or hip dislocation Human Projectile: [facility] Transcribe Date/Time: May 21 2022 3:41P Dictated by : JUDY MCKENZIE MD This examination was interpreted and the report reviewed and electronically signed by: JUDY MCKENZIE MD on May 21 2022 3:43PM EST [facility] Radiology Study observation (narrative) [facility] XR Pelvis and Hip - left AP and Lateral frogOrdered By: Ccf Provider on 05-21-2022 [facility] PT panel Coag (PPP)on 2022 INR Coag (Bld) [Relative time] 1.7 {INR} [facility] Basophil percentageon 2021 Cholesterol [Mass/Vol] 152 mg/dL <200 [facility] Work Phone: Comment on above: <200 mg/dL Desirable 200-240 mg/dL Borderline >240 mg/dL High Risk Triglyceride [Mass/Vol] 76 mg/dL <199 [facility] Work Phone: Comment on above: The drugs N-Acetylcy steine and Metamizole may falsely depress this assay.Serum Triglycerides Reference Interval Normal <150 mg/dL Borderline high 150 - 199 mg/dL High 200 - 499 mg/dL Very High > or = 500 mg/dL INR in Blood by Coagulation assayon 12-22-2021 INR Coag (Bld) [Relative time] 2.5 {INR} [facility] Work Phone: Laboratory - Chemistry and C hemistry - challengeon 12-22-2021 Magnesium [Mass/Vol] 2.1 mg/dL 1.6-2.6 [facility] Work Phone: Laboratory - Coagulationon 1 PT Coag (PPP) [Time] 27.0 s 11.7-14.9 [facility] Work Phone: No Panel Informationon 12-22 Thyroid Stimulating Hormone (TSH) 0.42 uIU/mL 0.358-3.74 [facility] Work Phone: Serum or plasma cholesterol in HDL measurement (mass/volume)on 12-22-2021 Cholesterol in HDL [Mass/Vol] 35 mg/dL >40 [facility] Work Phone: Comment on above: The drugs N-Acetylcy steine and Metamizole may falsely depress this assay. Reference Range HDL <40 mg/dL Low HDL Cholesterol HDL >or= 60 mg/dL High HDL Cholesterol Serum or plasma cholesterol in VLDL measurement (mass/volume)on 12-22-2021 Cholesterol in VLDL [Mass/Vol] 15 mg/dL 5-40 [facility] Work Phone: Serum or plasma low density lipoprotein (LDL) cholesterol measurement (mass/volume)on 12-22-2021 Cholesterol in LDL [Mass/Vol] 102 mg/dL 0-130 [facility] Work Phone: Whole blood hemoglobin A1c/t otal hemoglobin ratio (mass fraction)on 12-22-2021 HbA1c (Bld) [Mass fraction] 5.9 % 3.8-5.6 [facility] [place] Work Phone: Comment on above: Normal < 5.7 % Predi abetic 5.7 - 6.4 % Diabetic >or= 6.5 % Please note range changes. Absolute lymphocyte counton 12-21-2021 Lymphocytes Auto (Unsp spec) [#/Vol] 1.23 10*3/uL 0.83-4.51 [facility] [place] Work Phone: Basophil percentageon 2021 Basophils/100 WBC (Bld) 0.4 % 0-1 [facility] [place] Work Phone: [phone] Chloride [Moles/Vol] 106 mmol/L 98-107 [facility] Work Phone: Eosinophils/100 WBC (Bld) 1.4 % 0-5 [facility] [place] Work Phone: Glucose [Mass/Vol] 107 mg/dL 74-106 [facility] Work Phone: Comment on above: Fasting Glucose resu lt from 100 to 125 mg/dL suggests IMPAIRED HOMEOSTASIS per A.D.A. criteria. Neutrophils (Bld) [#/Vol] 5.7 10*3/uL 2.0-7.7 [facility] [place] Work Phone: Neutrophils/100 WBC (Bld) 72.4 % 47-70 [facility] [place] Work Phone: Potassium [Moles/Vol] 3.7 mmol/L 3.5-5.1 [facility] Work Phone: Sodium [Moles/Vol] 141 mmol/L 136-145 [facility] Work Phone: WBC (Bld) [#/Vol] 7.9 10*3/uL 4.4-11.0 [facility] Work Phone: Blood erythrocytes count (nu mber/volume)on 12-21-2021 RBC (Bld) [#/Vol] 4.85 10*6/uL 4.6-6.2 [facility]: Blood hemoglobin measurement (mass/volume)on 12-21-2021 Hemoglobin (Bld) [Mass/Vol] 14.5 g/dL 13.0-16.5 [facility] [place] Work Phone: Blood lymphocytes/100 leukoc yteson 12-21-2021 Lymphocytes/100 WBC (Bld) 15.5 % 19-41 [facility] [place] Work Phone: Blood monocytes/100 leukocyt eson 12-21-2021 Monocytes/100 WBC (Bld) 9.9 % 0-10 [facility] [place] Work Phone: Blood platelet mean volumeon 12-21-2021 Platelet mean volume (Bld) [Entitic vol] 10.2 fL 6.2-12.0 [facility] [place] Work Phone: Determination of erythrocyte mean corpuscular volume (MCV)on 12-21-2021 MCV (RBC) [Entitic vol] 92.0 fL 80-94 [facility] [place] Work Phone: Hematocrit Auto (Bld) [Volum e fraction]on 12-21-2021 Hematocrit (Bld) [Volume fraction] 44.6 % 40-54 [facility] [place] Work Phone: INR in Blood by Coagulation assayon 12-21-2021 INR Coag (Bld) [Relative time] 2.3 {INR} [facility] [place] Work Phone: Laboratory - Chemistry and C hemistry - challengeon 12-21-2021 CO2 [Moles/Vol] 29.0 mmol/L 21.0-32.0 [facility] [place] Work Phone: Urea nitrogen/Creatinine [Mass ratio] 21.8 mg/mg 10-20 [facility] [place] Work Phone: Laboratory - Coagulationon aPTT Coag (Bld) [Time] 36.6 s 24.1-36.2 [facility] [place] Work Phone: PT Coag (PPP) [Time] 24.7 s 11.7-14.9 [facility] Work Phone: Laboratory - Hematology and Cell countson 12-21-2021 Erythrocyte distribution width (RBC) [Entitic vol] 42.2 fL 35.1-43.9 [facility] [place] Work Phone: Erythrocyte distribution width (RBC) [Ratio] 12.5 % 11.6-14.6 [facility] [place] Work Phone: Immature granulocytes/100 WBC (Bld) 0.400 % 0.0-0.9 [facility] [place] Work Phone: Comment on above: IG% - Immature Granu locytes (promyelocytes, myelocytes and metamyelocytes) > 1% indicates that a LEFT SHIFT is Present. MCH (RBC) [Entitic mass] 29.9 pg 27.0-32.0 [facility] [place] Work Phone: Nucleated RBC/100 WBC (Bld) [Ratio] 0 % 0-5 [facility] [place] Work Phone: MCHC Auto (RBC) [Mass/Vol]on 12-21-2021 MCHC (RBC) [Mass/Vol] 32.5 g/dL 32-36 [facility] Work Phone: No Panel Informationon 12-21 Estimated Creatinine Clearance Calc 66.90 ml/min [facility] [place] Work Phone: Estimated GFR (MDRD) Amer 107 mL/min >60 [facility] [place] Work Phone: Comment on above: GFR Calc Estimated GFR (MDRD) Non-Af Amer 88 mL/min >60 [facility] [place] Work Phone: Comment on above: Non- GFR Calc Troponin I High Sensitivity 13 pg/mL 3.0-78.0 [facility] [place] Work Phone: Comment on above: Please Note: New Hiw[place] t Units and Gender Specific Reference Ranges. For more information see Policy Stat Procedure [place] High Sensitivity Troponin (TNIH) and attachments. Platelets bldon 12-21-2021 Platelets (Bld) [#/Vol] 241 10*3/uL 150-450 [facility] [place] Work Phone: Serum or plasma calcium alvaro urement (mass/volume)on 12-21-2021 Calcium [Mass/Vol] 9.2 mg/dL 8.5-10.1 [facility] Work Phone: Serum or plasma creatinine m easurement (mass/volume)on 12-21-2021 Creatinine [Mass/Vol] 0.87 mg/dL 0.70-1.30 [facility] Work Phone: Comment on above: The validity of the calculated GFR & GFRAA in patients over 70 years has not been determined. Clinical correlation is essential. Serum or plasma urea nitroge n measurement (mass/volume)on 12-21-2021 Urea nitrogen [Mass/Vol] 19 mg/dL 10-07 [facility] [place] Work Phone: Thin prep Papanicolaou smear with manual screeningon 12-21-2021 Thin prep Papanicolaou smear with manual screening 6 08-04 [facility] [place] Work Phone: CBC panel Auto (Bld)on 07-08 Erythrocyte distribution width (RBC) [Ratio] 13.1 % 11.5 - 15.0 % [facility] Hematocrit (Bld) [Volume fraction] 49.5 % 39.0 - 51.0 % [facility] Hemoglobin (Bld) [Mass/Vol] 15.9 g/dL 13.0 - 17.0 g/dL [facility] MCH (RBC) [Entitic mass] 29.6 pg 26.0 - 34.0 pg [facility] MCHC (RBC) [Mass/Vol] 32.1 g/dL 30.5 - 36.0 g/dL [facility] MCV (RBC) [Entitic vol] 92.2 fL 80.0 - 100.0 fL [facility] Nucleated RBC (Bld) [#/Vol] 10*3/uL <0.01 k/uL [facility] Platelet mean volume (Bld) [Entitic vol] 10.7 fL 9.0 - 12.7 fL [facility] Platelets (Bld) [#/Vol] 235 10*3/uL 150 - 400 k/uL [facility] RBC (Bld) [#/Vol] 5.37 10*6/uL 4.20 - 6.00 m/uL [facility] WBC (Bld) [#/Vol] 10.33 10*3/uL 3.70 - 11.00 k/uL [facility] XR Lumbar spine 3 Viewson IMPRESSION: 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 Human Projectile: [email or web address] Transcribe Date/Time: Mar 13 2020 8:34A [...] spine are presented. FINDINGS: There are five msw-ydx-bhpuhfp lumbar vertebrae. No fracture or subluxations are [...] spine are presented. FINDINGS: There are five cfm-bhl-dhnfskt lumbar vertebrae. No fracture or subluxations are noted. L5-S1 disc space narrowing is demonstrated. There is significant osteophyte formation. Kissing spine seen on lateral view. 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 Human Projectile: [email or web address] Transcribe Date/Time: Mar 13 2020 8:34A Dictated by : GABRIELLE BENTLEY MD This examination was interpreted and the report reviewed and electronically signed by: GABRIELLE BENTLEY MD on Mar 13 2020 8:35AM EST [facility] XR Lumbar spine 3 ViewsOrder ed By: Ccf Provider on 03-13-2020 [facility] XR Lumbar spine 3 Viewson Radiology Study observation (narrative) [facility] PROGRESSon 06-09-2017 PROGRESS HNO ID: [id number] Author: Vseta Marin PSR Service: (none) Author Type: (none) Type: Progress Notes Filed: 06/09/2017 4:13 PM Note Text: Spoke with the patient and scheduled his Corotid Doppler on June 24, 2017 at 9:00 am [facility] CNOVon 06-02-2017 CNOV Office Visit (AGCARDWST) -------ROBY FLORES ([id number]) 1935 MDate Time Provider Department06/02/17 9:00 AM DARRELL OLIVEIRA AGCELEAZARWSDawna During your visit today, we recorded the following information about you: Pulse Blood pressure Weight 70/minute 116/67 79.5 kgDarrell Oliveira MD 06/02/2017 9:31 AM SignedPERTINENT CARDIAC HISTORYASHD - PCI LAD 2002HTNHLCarotid diseaseSyncopePAFADHERENCE TO GUIDELINESACE-I or ARB for HF with prior LVEFANDlt;40 (NQF 0081) - N/AASA or Plavix for ASHD (NQF 0067) - METBeta jazmin for ASHD with prior NV or prior LVEFANDlt;40 (NQF 0070) - N/ABeta jazmin for HF with prior LVEFANDlt;40 (NQF 0083) - N/AACE-I or ARB for ASHD with DM or prior LVEFANDlt;40 (NQF 0066) - N/AStatin therapy for ASHD or FHL or DM - METBMI documented and plan if ANDgt;25 (NQF 0421) - lifestyle recommendation formTobacco use screening and referral (NQ 0028) - lifestyle recommendation formRecommendation for whole food, plant based diet - lifestyle recommendation formCLINICAL IMPRESSION/PLAN:Roby Flores is doing well. His blood pressure is somewhat low. He wasadvised to decrease fosinopril to 20 milligrams daily and update me with vitalsigns in 2 weeks.He will be getting labs from the [facility] in the near future and I've askedfor a copy.INR has been within range. He is due today.I will see him in 8 months or as needed. If there is increased chest pain orrecurrent syncope, he has been advised to contact me.Written and verbal health teaching given to patient, patient verbalizesunderstanding and agrees with treatment plan.This note was generated using Blurr voice recognition system, and there may besome [...] There is no significantchange.Electronic ally Signed:Darrell Oliveira [facility] 2017 9:15 [facility]: Carmen Vasquez MD 06/02/2017 9:21 AM AddendumDecrease [...] 24, 2017 at9:00 amReferring Provider: DARRELL OLIVEIRA [[id number]]Allergies As of Date: 06/02/2017(No Known Allergies)Date Reviewed: 06/02/2017Reviewed by: Russell Breaux) Anabella - Fully AssessedReason for Visit: Recheck [92]Primary Visit Diagnosis:ASHD (arteriosclerotic heart disease) [I25.10] Other Visit Diagnosis:PAF (paroxysmal atrial fibrillation) ([facility]) [I48.0]Order(s):ECG B/O W INTERP (MED OFFICE) [ECG06] Order #: [id number] Fosinopril Sodium 40 mg tabletTake 1/2 tablet [...] FOR* 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 Cosign accepted by STAS MORA MD[[id number]] on 09/30/2016 2:01 PM Fosinopril Sodium 40 [...] on file.Follow-up and Disposition History RecordedEncounter Number: [id number] Status:Closed by DARRELL OLIVEIRA MD on 06/02/17 [facility] PROGRESSon 06-02-2017 PROGRESS HNO ID: [id number] thor: Darrell Stahl: (none)Author Type: PhysicianType: Progress NotesFiled: 06/02/2017 9:31 AMNote Text:PERTINENT CARDIAC HISTORYASHD - PCI LAD 2003HTNHLCarotid diseaseSyncopePAFADHERENCE TO GUIDELINESACE-I or ARB for HF with prior LVEF<40 (NQF 0081) - N/AASA or Plavix for ASHD (NQF 0067) - METBeta jazmin for ASHD with prior NV or prior LVEF<40 (NQF 0070) - N/ABeta [...] weeks.He will be getting labs from the [facility] in the near future and I'veasked for a copy.INR has been within range. He is due today.I will see him in 8 months or as needed. If there is increased chest painor recurrent syncope, he has been advised to contact me.Written and verbal health teaching given to patient, patient verbalizesunderstanding and agrees with treatment plan.This note was generated using Blurr voice recognition system, and theremay be some [...] ectopics. There is nosignificant change.Electronically Signed:Darrell Oliveira [facility] 2017 9:15 [facility]: Stas Mora MD 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 OBSOLETEon 01-23-2017 OBSOLETE Refill (AGCARDWST) -------FLORESROBY CORTEZ ([id number]) 1935 MDate Time Provider Luprlhdkjy79/3/17 DARRELL OLIVEIRA AGCARDWST During your visit today, we recorded the following information about you:Dao Bishop RN, RN 01/23/2017 3:15 PM SignedPatient phones requesting refills as follows:Pending Prescriptions Disp Refills WARFARIN 2.5 MG TABLET 45 tablet 11 Sig: Take 1 tablet by mouth daily as directed. 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 Stas Mora MD Work Phone: [facility] [place] 09-06-2024 14:15-0400 Diastolic blood pressure 88 mm[Hg] Dr. Stas Mora MD Work Phone: [facility] [place] 09-06-2024 14:15-0400 Heart rate 78 /min Dr. Stas Mora MD Work Phone: [facility] [place] 09-06-2024 14:15-0400 Respiratory rate 18 /min Dr. Stas Mora MD Work Phone: [facility] [place] 09-06-2024 14:15-0400 SaO2% (BldA) [Mass fraction] 97 % Dr. Stas Mora MD Work Phone: 1(058)947-340240 [address] 09-06-2024 14:15-0400 Systolic blood pressure 137 mm[Hg] Dr. Stas Mora MD Work Phone: 7(293)678-551368 [place] [address] 09-04-2024 12:05-0400 Inhaled oxygen flow rate 2 L/min Dr. Stas Mora MD Work Phone: 0(631)229-673568 [place] [address] 09-01-2024 11:52-0400 Body height 182.[address] Stas Mora MD Work Phone: 2(162)399-992768 [place] [address] 09-01-2024 11:52-0400 Body mass index (BMI) [Ratio] 21.6 kg/m2 Dr. Stas Mora MD Work Phone: 7(474)941-067768 [place] [address] 09-01-2024 11:52-0400 Body weight 72.[address] Stas Mora MD Work Phone: 7(661)509-242568 [place] [address] 09-01-2024 11:00-0400 Diastolic blood pressure 79 mm[Hg] Dr. Stas Mora MD Work Phone: 4(053)237-506968 [place] [address] 09-01-2024 11:00-0400 Heart rate 70 /min Dr. Stas Mora MD Work Phone: 7(277)504-197968 [place] [address] 09-01-2024 11:00-0400 Respiratory rate 18 /min Dr. Stas Mora MD Work Phone: 6(565)737-451468 [place] [address] 09-01-2024 11:00-0400 SaO2% (BldA) [Mass fraction] 98 % Dr. Stas Mora MD Work Phone: 0(465)750-883868 [place] [address] 09-01-2024 11:00-0400 Systolic blood pressure 180 mm[Hg] Dr. Stas Mora MD Work Phone: 3(207)028-894968 [place] [address] 09-01-2024 09:52-0400 Body temperature 98.9 [degF] Dr. Stas Mora MD Work Phone: 2(875)039-894968 [place] [address] 09-01-2024 07:31-0400 Body height 182.[address] Stas Mora MD Work Phone: [facility] [place] 09-01-2024 07:31-0400 Body mass index (BMI) [Ratio] 23.4 kg/m2 Dr. Stas Mora MD Work Phone: [facility] [place] 09-01-2024 07:31-0400 Body weight 78.[address] Stas Mora MD Work Phone: [facility] [place] 08-31-2024 11:05-0400 Body mass index (BMI) [Ratio] 22.35 kg/m2 Luciana Cisneros MD Work Phone: [facility] 08-31-2024 11:05-0400 Body weight 73.94 kg Luciana Cisneros MD Work Phone: [facility] 08-31-2024 11:05-0400 Diastolic blood pressure 74 mm[Hg] Luciana Cisneros MD Work Phone: [facility] 08-31-2024 11:05-0400 Heart rate 74 /min Luciana Cisneros MD Work Phone: [facility] 08-31-2024 11:05-0400 Respiratory rate 12 /min Luciana Cisneros MD Work Phone: [facility] 08-31-2024 11:05-0400 SaO2% (BldA) [Mass fraction] 98 % Luciana Cisneros MD Work Phone: [facility] 08-31-2024 11:05-0400 Systolic blood pressure 124 mm[Hg] Luciana Cisneros MD Work Phone: [facility] 07-28-2024 11:12-0400 Diastolic blood pressure 78 mm[Hg] Stas Mora MD Work Phone: [facility] 07-28-2024 11:12-0400 Systolic blood pressure 136 mm[Hg] Stas Mora MD Work Phone: [facility] 07-28-2024 11:10-0400 Body mass index (BMI) [Ratio] 22.4 kg/m2 Stas Mora MD Work Phone: [facility] 07-28-2024 11:10-0400 Body weight 74.1 kg Stas Mora MD Work Phone: [facility] 07-28-2024 11:10-0400 Heart rate 56 /min Stas Mora MD Work Phone: [facility] 07-28-2024 11:10-0400 Respiratory rate 16 /min Stas Mora MD Work Phone: [facility] 06-01-2024 14:52-0400 Body height 181.9 cm Luciana Cisneros MD Work Phone: [facility] 06-01-2024 14:52-0400 Body mass index (BMI) [Ratio] 22.33 kg/m2 Luciana Cisneros MD Work Phone: [facility] 06-01-2024 14:52-0400 Body weight 73.85 kg Luciana Cisneros MD Work Phone: [facility] 06-01-2024 14:52-0400 Diastolic blood pressure 60 mm[Hg] Luciana Cisneros MD Work Phone: [facility] 06-01-2024 14:52-0400 Heart rate 46 /min Luciana Cisneros MD Work Phone: [facility] 06-01-2024 14:52-0400 SaO2% (BldA) [Mass fraction] 98 % Luciana Cisneros MD Work Phone: [facility] 06-01-2024 14:52-0400 Systolic blood pressure 132 mm[Hg] Luciana Cisneros MD Work Phone: [facility] 05-26-2024 09:18-0500 Diastolic blood pressure 82 mm[Hg] Stas Mora MD Work Phone: [facility] 05-26-2024 09:18-0500 Systolic blood pressure 144 mm[Hg] Stas Mora MD Work Phone: [facility] 05-26-2024 09:06-0500 Body mass index (BMI) [Ratio] 22.19 kg/m2 Stas Mora MD Work Phone: [facility] 05-26-2024 09:06-0500 Body weight 73.5 kg Stas Mora MD Work Phone: [facility] 05-26-2024 09:06-0500 Heart rate 56 /min Stas Mora MD Work Phone: [facility] 05-26-2024 09:06-0500 Respiratory rate 18 /min Stas Mora MD Work Phone: [facility] 04-27-2024 09:34-0500 Body height 182 cm Luciana Cisneros MD Work Phone: [facility] 04-27-2024 09:34-0500 Body mass index (BMI) [Ratio] 22.51 kg/m2 Luciana Cisneros MD Work Phone: [facility] 04-27-2024 09:34-0500 Body weight 74.57 kg Luciana Cisneros MD Work Phone: [facility] 04-27-2024 09:34-0500 Diastolic blood pressure 62 mm[Hg] Luciana Cisneros MD Work Phone: [facility] 04-27-2024 09:34-0500 Heart rate 60 /min Luciana Cisneros MD Work Phone: [facility] 04-27-2024 09:34-0500 SaO2% (BldA) [Mass fraction] 98 % Luciana Cisneros MD Work Phone: [facility] 04-27-2024 09:34-0500 Systolic blood pressure 110 mm[Hg] Luciana Cisneros MD Work Phone: [facility] 11-26-2023 10:33-0400 Diastolic blood pressure 80 mm[Hg] Stas Mora MD Work Phone: [facility] 11-26-2023 10:33-0400 Systolic blood pressure 144 mm[Hg] Stas Mroa MD Work Phone: [facility] 11-26-2023 10:22-0400 Body mass index (BMI) [Ratio] 21.95 kg/m2 Stas Mora MD Work Phone: [facility] 11-26-2023 10:22-0400 Body weight 71.4 kg Stas Mora MD Work Phone: [facility] 11-26-2023 10:22-0400 Heart rate 60 /min Stas Mora MD Work Phone: [facility] 11-26-2023 10:22-0400 Respiratory rate 18 /min Stas Mora MD Work Phone: [facility] 09-15-2023 08:38-0400 Body mass index (BMI) [Ratio] 24.52 kg/m2 Stas Mora MD Work Phone: [facility] 09-15-2023 08:38-0400 Body weight 79.74 kg Stas Mora MD Work Phone: [facility] 09-15-2023 08:38-0400 Diastolic blood pressure 84 mm[Hg] Stas Mora MD Work Phone: [facility] 09-15-2023 08:38-0400 Heart rate 76 /min Stas Mora MD Work Phone: [facility] 09-15-2023 08:38-0400 Respiratory rate 18 /min Stas Mora MD Work Phone: [facility] 09-15-2023 08:38-0400 Systolic blood pressure 138 mm[Hg] Stas Mora MD Work Phone: [facility] 08-14-2023 09:57-0400 Body mass index (BMI) [Ratio] 22.59 kg/m2 Stas Mora MD Work Phone: [facility] 08-14-2023 09:57-0400 Body weight 73.48 kg Stas Mora MD Work Phone: [facility] 08-14-2023 09:57-0400 Diastolic blood pressure 80 mm[Hg] Stas Mora MD Work Phone: [facility] 08-14-2023 09:57-0400 Heart rate 64 /min Stas Mora MD Work Phone: [facility] 08-14-2023 09:57-0400 Respiratory rate 14 /min Stas Mora MD Work Phone: [facility] 08-14-2023 09:57-0400 Systolic blood pressure 140 mm[Hg] Stas Mora MD Work Phone: [facility] 06-01-2023 15:08-0400 Body weight 75.75 kg Stas Mora MD Work Phone: [facility] 06-01-2023 15:08-0400 Diastolic blood pressure 90 mm[Hg] Stas Mora MD Work Phone: [facility] 06-01-2023 15:08-0400 Heart rate 82 /min Stas Mora MD Work Phone: [facility] 06-01-2023 15:08-0400 Respiratory rate 16 /min Stas Mora MD Work Phone: [facility] 06-01-2023 15:08-0400 SaO2% (BldA) [Mass fraction] 100 % Stas Mora MD Work Phone: [facility] 06-01-2023 15:08-0400 Systolic blood pressure 140 mm[Hg] Stas Mora MD Work Phone: [facility] 02-16-2023 13:57-0500 Diastolic blood pressure 62 mm[Hg] Stas Mora MD Work Phone: [facility] 02-16-2023 13:57-0500 Heart rate 62 /min Stas Mora MD Work Phone: [facility] 02-16-2023 13:57-0500 Respiratory rate 16 /min Stas Mora MD Work Phone: [facility] 02-16-2023 13:57-0500 Systolic blood pressure 110 mm[Hg] Stas Mora MD Work Phone: [facility] 02-10-2023 16:59-0500 Diastolic blood pressure 68 mm[Hg] [facility] [place] 02-10-2023 16:59-0500 Heart rate 79 /min [facility] 02-10-2023 16:59-0500 Respiratory rate 12 /min [facility] 02-10-2023 16:59-0500 SaO2% (BldA) [Mass fraction] 98 % [facility] [place] 02-10-2023 16:59-0500 Systolic blood pressure 153 mm[Hg] [facility] [place] 02-10-2023 14:37-0500 Body mass index (BMI) [Ratio] 22.1 kg/m2 [facility] [place] 02-10-2023 14:37-0500 Body weight 74.3 kg [facility] [facility]-10-2023 14:32-0500 Body height 182.88 cm [facility] 02-10-2023 14:32-0500 Body temperature 98 [degF] [facility] 11-17-2022 17:22-0400 Diastolic Blood Pressure Non-Invasive 68 1 [facility] [employer] [facility] 11-17-2022 17:22-0400 Heart rate 76 /min [facility] [employer] [facility] 11-17-2022 17:22-0400 Respiratory rate 18 /min [facility] [employer] [facility] 11-17-2022 17:22-0400 Systolic Blood Pressure Non-Invasive 126 1 [facility] [employer] [facility] 11-17-2022 15:23-0400 Body height 185.4 cm [facility] [employer] [facility] 11-17-2022 15:23-0400 Body temperature 97.88 [degF] STERLING DAIGLET [employer] [facility] 11-17-2022 15:23-0400 Body weight 79.6 kg STERLING LYNCH [employer] [facility] 11-17-2022 15:23-0400 Diastolic Blood Pressure Non-Invasive 70 1 STERLING LYNCH DO [facility] 11-17-2022 15:23-0400 Heart rate 89 /min STERLING LYNCH DO [facility] 11-17-2022 15:23-0400 Respiratory rate 18 /min STERLING LYNCH DO [facility] 11-17-2022 15:23-0400 Systolic Blood Pressure Non-Invasive 134 1 STERLING LYNCH DO [facility] 08-26-2022 13:12-0400 Body height 180.3 cm Stas Mora MD Work Phone: [facility] 08-26-2022 13:12-0400 Body weight 78.74 kg Stas Mora MD Work Phone: [facility] 08-26-2022 13:12-0400 Diastolic blood pressure 74 mm[Hg] Stas Mora MD Work Phone: [facility] 08-26-2022 13:12-0400 Heart rate 66 /min Stas Mora MD Work Phone: [facility] 08-26-2022 13:12-0400 Respiratory rate 16 /min Stas Mora MD Work Phone: [facility] 08-26-2022 13:12-0400 Systolic blood pressure 122 mm[Hg] Stas Mora MD Work Phone: [facility] 12-26-2021 11:22-0400 Body weight 78.56 kg Stas Mora MD Work Phone: [facility] 12-26-2021 11:22-0400 Diastolic blood pressure 80 mm[Hg] Stas Mora MD Work Phone: [facility] 12-26-2021 11:22-0400 Heart rate 58 /min Stas Mora MD Work Phone: [facility] 12-26-2021 11:22-0400 Respiratory rate 16 /min Stas Mora MD Work Phone: [facility] 12-26-2021 11:22-0400 Systolic blood pressure 142 mm[Hg] Stas Mora MD Work Phone: [facility] 12-22-2021 11:13-0400 Body temperature 97.6 [degF] Dr. Stas Mora Work Phone: [facility] [place] Work Phone: 12-22-2021 11:13-0400 Diastolic blood pressure 58 mm[Hg] Dr. Stas Mora Work Phone: [facility] [place] Work Phone: 12-22-2021 11:13-0400 Heart rate 63 /min Dr. Stas Mora Work Phone: [facility] [place] Work Phone: 12-22-2021 11:13-0400 Respiratory rate 16 /min Dr. Stas Mora Work Phone: [facility] [place] Work Phone: 12-22-2021 11:13-0400 SaO2% (BldA) [Mass fraction] 96 % Dr. Stas Mora Work Phone: [facility] [place] Work Phone: 12-22-2021 11:13-0400 Systolic blood pressure 142 mm[Hg] Dr. Stas Mora Work Phone: [facility] [place] Work Phone: 12-21-2021 20:06-0400 Body height 182.[address] Stas Mora Work Phone: [facility] [place] Work Phone: 12-21-2021 20:06-0400 Body mass index (BMI) [Ratio] 22.6 kg/m2 Dr. Stas Mora Work Phone: [facility] [place] Work Phone: 12-21-2021 20:06-0400 Body weight 75.[address] Stas Mora Work Phone: [facility] [place] Work Phone: 12-21-2021 19:15-0400 Diastolic blood pressure 81 mm[Hg] [facility] Work Phone: 12-21-2021 19:15-0400 Heart rate 70 /min [facility] Work Phone: 12-21-2021 19:15-0400 Respiratory rate 18 /min [facility] Work Phone: 12-21-2021 19:15-0400 SaO2% (BldA) [Mass fraction] 96 % [facility] Work Phone: 12-21-2021 19:15-0400 Systolic blood pressure 171 mm[Hg] [facility] Work Phone: 12-21-2021 19:02-0400 Body temperature 97.6 [degF] [facility] Work Phone: 12-21-2021 18:17-0400 Body height 182.88 cm [facility] Work Phone: 12-21-2021 18:17-0400 Body mass index (BMI) [Ratio] 24.2 kg/m2 [facility] [place] Work Phone: 12-21-2021 18:17-0400 Body weight 80.9 kg [facility] Work Phone: 09-05-2021 11:21-0400 Body height 182.9 cm Stas Mora MD Work Phone: [facility] 09-05-2021 11:21-0400 Body weight 80.2 kg Stas Mora MD Work Phone: [facility] 09-05-2021 11:21-0400 Diastolic blood pressure 70 mm[Hg] Stas Mora MD Work Phone: [facility] 09-05-2021 11:21-0400 Heart rate 62 /min Stas Mora MD Work Phone: [facility] 09-05-2021 11:21-0400 Respiratory rate 16 /min Stas Mora MD Work Phone: [facility] 09-05-2021 11:21-0400 Systolic blood pressure 136 mm[Hg] Stas Mora MD Work Phone: [facility] 07-08-2021 10:41-0400 Body weight 83.55 kg Stas Mora MD Work Phone: [facility] 07-08-2021 10:41-0400 Diastolic blood pressure 78 mm[Hg] Stas Mora MD Work Phone: [facility] 07-08-2021 10:41-0400 Heart rate 60 /min Stas Mora MD Work Phone: [facility] 07-08-2021 10:41-0400 Respiratory rate 16 /min Stas Mora MD Work Phone: [facility] 07-08-2021 10:41-0400 Systolic blood pressure 120 mm[Hg] Stas Mora MD Work Phone: [facility] Encounters Encounter Date Encounter Type Care Provider Facility Start: 11-23-2024 ambulatory Efewongbe Gabee OLS Fa cility:[facility] [place] Start: 11-23-2024 Registered Referred Shayy Curtis MD [facility] Start: 11-02-2024 ambulatory Efewongbe Oletomye OLS Fa cility:[facility] [place] Start: 11-02-2024 Registered Referred Shayy Curtis MD [facility] Start: 10-31-2024 ambulatory Efewongbe Gabee OLS Fa cility:[facility] [place] Start: 10-31-2024 Registered Referred Shayy Curtis MD [facility] Start: 10-25-2024 End: 10-25-[address] Stas Mora MD Work Phone: [facility] Start: 10-25-2024 End: 10-25-[address] Shayy Curtis MD -[facility] Work Phone: Start: 10-20-2024 End: 10-20-[address] Stas Mora MD Work Phone: -[facility] Start: 10-20-2024 End: 10-20-2024 Patient encounter procedure Halina HO -[facility] Work Phone: Start: 10-06-2024 ambulatory Shayy Villanueva cility:[facility] [place] Start: 10-06-2024 [facility] Start: 10-05-2024 ambulatory Stas Frankel y:[facility] Start: 10-05-2024 Registered Referred Shayy MaloneyElmer - [facility] Start: 09-30-2024 End: 09-30-[address] Stas Mora MD Work Phone: -[facility] Start: 09-30-2024 End: 09-30-2024 Patient encounter procedure Halina HO -[facility] Work Phone: Start: 09-29-2024 ambulatory Stas Frankel y:[facility] [place] Start: 09-29-2024 Registered Referred Shayy Cardozo Start: 09-28-2024 End: 09-28-[address] Stas Mora MD Work Phone: -[facility] Start: 09-28-2024 End: 09-28-2024 Departed Referred Shayy Cardozo Start: 09-28-2024 Registered Referred Shayy Cardozo Start: 09-28-2024 End: 09-28-2024 ambulatory Stas Mora Facility:[facility] Start: 09-26-2024 End: 09-26-[address] Stas Mora MD Work Phone: -[facility] Start: 09-26-2024 End: 09-26-2024 Departed Referred Shayy Cardozo Start: 09-26-2024 Registered Referred Shayy Cardozo Start: 09-26-2024 End: 09-26-2024 ambulatory Efewongbe Oletomye OLS Facility:[facility] [place] Start: 09-23-2024 ambulatory Stas Frankel y:[facility] [place] Start: 09-23-2024 Registered Referred Shayy Cardozo Start: 09-21-2024 End: 09-22-2024 Telephone encounter Stas Mora MD Work Phone: [facility] Start: 09-21-2024 ambulatory Stas Frankel y:[facility] [place] Start: 09-21-2024 Registered Referred Shayy Cardozo Start: 09-20-2024 End: 09-20-[address] Stas Mora MD Work Phone: [facility] Start: 09-20-2024 End: 09-20-[address] Shayy Curtis MD -[facility] Work Phone: Start: 09-19-2024 ambulatory Efbaldomero Bernale OLS Fa cility:[facility] [place] Start: 09-19-2024 Registered Referred Shayy Cardozo Start: 09-15-2024 ambulatory Efewtimmy [place] OLS Fa cility:[facility] [place] Start: 09-15-2024 Registered Referred Shayy Cardozo Start: 09-14-2024 ambulatory Efewongirlanda Curtis OLS Fa cility:[facility] [place] Start: 09-14-2024 Registered Referred Shayy Cardozo Start: 09-12-2024 ambulatory Efewongbe Gabee OLS Fa cility:[facility] [place] Start: 09-12-2024 Registered Referred Shayy Cardozo Start: 09-08-2024 End: 09-08-2024 Patient encounter procedure Halinabrii Carmona [facility] Work Phone: Start: 09-08-2024 End: 09-08-[address] Stas Mora MD Work Phone: [facility] Start: 09-08-2024 Registered Referred Shayy Cardozo Start: 09-07-2024 End: 09-07-2024 Patient encounter procedure Halinabrii Lintonimelda [facility] Work Phone: Start: 09-07-2024 End: 09-07-[address] Stas Mora MD Work Phone: [facility] Start: 09-07-2024 Registered Referred Shayy Cardozo Start: 09-06-2024 Non-patient / Non-visit Dr. Navid Dominguez MD -[facility] Work Phone: Start: 09-05-2024 Non-patient / Non-visit Dr. Navid Dominguez MD [facility] Work Phone: Start: 09-04-2024 Non-patient / Non-visit Dr. Andrea Wells MD [facility] Work Phone: Start: 09-03-2024 Non-[facility] Start: 09-02-2024 Non-patient / Non-[facility] Work [facility]: Start: 09-02-2024 ambulatory Kathy Wells Facility :[facility] Start: 09-02-2024 End: 09-06-2024 Evaluation and management of inpatient Dr. Navid Dominguez MD -[facility] Work Phone: Start: 09-01-2024 End: 09-01-2024 Telephone encounter Russell Aguayo [facility] Work Phone: [facility] Comment on above: Medication Problem ( Cost) Start: 09-01-2024 ambulatory Kathy Wells Facility :[facility] Start: 09-01-2024 Evaluation and management of inpatient Dr. Kathy Wells MD -[facility] Work Phone: Start: 09-01-2024 Non-patient / Non-visit Dr. Andrea Wells MD -[facility] Work Phone: Start: 09-01-[address] Stas Mora MD Work Phone: [facility] Work Phone: Start: 08-31-2024 End: 08-31-2024 Telephone encounter Coretta Jalloh [facility] Telemanagement Comment on above: Anticoagulation Tele phone Fu (Home INR result ) Start: 08-31-2024 End: 08-31-2024 ambulatory STAS MORA Facility:[facility] Start: 08-31-2024 End: 08-31-2024 Office outpatient visit 25 minutes Luciana Cisneros MD Work Phone: Geriatrics Comment on above: Moderate dementia wi thout behavioral disturbance, psychotic disturbance, mood disturbance, or anxiety, unspecified dementia type (HCC) (Primary Dx); Hallucinations; Screening for depression; Encounter for screening examination for other mental health and behavioral disorders Start: 08-31-2024 End: 08-31-2024 ambulatory LUCIANA CISNEROS Facility:[facility] Start: 08-03-2024 End: 08-03-2024 Telephone encounter Coretta Jalloh [facility] Tele[facility] Comment on above: Anticoagulation Tele phone Fu (Lab INR result) Start: 08-03-2024 End: 08-03-2024 ambulatory STAS MORA Facility:[facility] Start: 07-28-2024 End: 07-28-2024 Office outpatient visit 15 minutes Stas Mora MD Work Phone: [facility] [place] Comment on above: Bursitis of right el bow, unspecified bursa (Primary Dx) Start: 07-28-2024 End: 07-28-2024 ambulatory [facility] Facility:[facility] Start: 07-06-2024 End: 07-06-2024 Telephone encounter Coretta Jalloh [facility] Comment on above: Anticoagulation Tele phone Fu (Lab INR result ) Start: 07-06-2024 End: 07-06-2024 [facility] Facility:[facility] Start: 06-29-2024 End: 06-29-2024 Telephone encounter Coretta Jalloh [facility] Tele[facility] Comment on above: Anticoagulation Tele phone Fu (Lab INR result ) Start: 06-29-2024 End: 06-29-2024 [facility] Facility:[facility] Start: 06-01-2024 End: 06-01-2024 Office consultation new/estab patient 80 min Luciana Cisneros MD Work Phone: Geriatrics Comment on above: Mixed dementia (HCC) (Primary Dx); Vascular parkinsonism (HCC) Start: 06-01-2024 End: 06-01-2024 [facility] Facility:[facility] Start: 06-01-2024 End: 08-01-2024 Follow-up encounter Luciana Cisneros MD Work Phone: Geriatrics Start: 05-26-2024 End: 05-26-2024 Telephone encounter Luciana Cisneros MD Work Phone: Geriatrics Comment on above: Appointment (Resched ule for geriatric f/u) Start: 05-26-2024 End: 05-26-2024 ambulatory [facility] Facility:[facility] Start: 05-26-2024 End: 05-26-2024 Patient encounter procedure Stas Mora MD Work Phone: [facility] [place] Comment on above: Essential hypertensi on, benign (Primary Dx); Hyperlipidemia, unspecified hyperlipidemia type; Atherosclerosis 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, unspecified vessel or lesion type, unspecified whether [place] or transplanted heart; Paroxysmal atrial fibrillation (HCC); Edema of both lower legs; History of stroke with residual effects; Dementia, unspecified dementia severity, unspecified dementia type, unspecified whether behavioral, psychotic, or mood disturbance or anxiety (HCC) Start: 05-25-2024 End: 05-25-2024 Telephone encounter Paige Hickman [facility] Tele[facility] Comment on above: Anticoagulation Tele phone Fu (Lab INR Result ) Start: 05-25-2024 End: 05-25-2024 ambulatory STAS MORA Facility:[facility] Start: 05-23-2024 ambulatory LUCIANA CISNEROS Facility :[id number] Start: 05-23-2024 End: 05-23-2024 Subsequent hospital visit by physician [facility] Work Phone: [facility] Comment on above: Cognitive impairment , mild, 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] Start: 04-28-2024 End: 04-29-2024 Telephone encounter Stas Mora MD Work Phone: [facility] [place] Comment on above: Results Start: 04-27-2024 End: 04-27-2024 Telephone encounter Coretta Jalloh [facility] Comment on above: Anticoagulation Tele phone Fu (Lab INR result ) Start: 04-27-2024 End: 04-27-2024 ambulatory LUCIANA CISNEROS Facility:[facility] Start: 04-27-2024 End: 04-27-2024 Assmt & care planning pt w/cognitive impairment Luciana Cisneros MD Work Phone: Geriatrics Comment on above: Dementia, unspecifie d dementia severity, unspecified dementia type, unspecified whether behavioral, psychotic, or mood disturbance or anxiety (HCC) (Primary Dx); Cognitive impairment; Cognitive impairment, mild, so stated; Shuffling gait; Ambulatory dysfunction; Balance disorder Start: 04-27-2024 End: 04-27-2024 ambulatory LUCIANA CISNEROS Facility:[facility] Start: 04-25-2024 End: 04-25-2024 Telephone encounter Stas Mora MD Work Phone: [facility] [place] Comment on above: memory issues Start: 04-13-2024 End: 04-13-2024 Telephone encounter Coretta Jalloh [facility] Comment on above: Anticoagulation Tele phone Fu (Home INR result ) Start: 04-13-2024 End: 04-13-2024 ambulatory [facility] Facility:[facility] Start: 03-30-2024 End: 03-30-2024 Telephone encounter Coretta Jalloh [facility] Comment on above: Anticoagulation Tele phone Fu (Lab INR result ) Start: 03-30-2024 End: 03-30-2024 ambulatory [facility] Facility:[facility] Start: 03-17-2024 End: 03-17-2024 Telephone encounter Josy Gandhi [facility] Comment on above: Anticoagulation Tele phone Fu (Lab INR result ) Start: 03-17-2024 End: 03-17-2024 ambulatory [facility] Facility:[facility] Start: 03-03-2024 End: 03-03-2024 Telephone encounter Elise Paredes [facility] Comment on above: Anticoagulation Tele phone Fu (Lab INR result) Start: 03-03-2024 End: 03-03-2024 ambulatory [facility] Facility:[facility] Start: 02-10-2024 End: 02-10-2024 Telephone encounter Coretta Jalloh [facility] Comment on above: Anticoagulation Tele phone Fu (Lab INR result ) Start: 02-10-2024 End: 02-10-2024 [facility] Facility:[facility] Start: 01-20-2024 End: 01-20-2024 Telephone encounter Coretta Jalloh [facility] Comment on above: Anticoagulation Tele phone Fu (Lab INR results ) Start: 01-20-2024 End: 01-20-2024 ambulatory [facility] Facility:[facility] Start: 01-04-2024 End: 01-04-2024 Telephone encounter Stas Mora MD Work Phone: [facility] Comment on above: Medication Request Start: 12-24-2023 End: 12-24-2023 Telephone encounter Elise Paredes [facility] Comment on above: Anticoagulation Tele phone Fu (Lab INR) Start: 12-23-2023 End: 12-23-2023 ambulatory [facility] Facility:[facility] Start: 12-10-2023 End: 12-10-2023 Telephone encounter Elise Paredes [facility] Comment on above: Anticoagulation Tele phone Fu (Lab INR) Start: 12-09-2023 End: 12-09-2023 ambulatory STAS Trejo [facility] Facility:[facility] Start: 11-26-2023 End: 11-26-2023 Telephone encounter Elise Paredes [facility] Comment on above: Anticoagulation Tele phone Fu (Lab INR) Start: 11-26-2023 End: 11-26-2023 ambulatory STAS Trejo [facility] Facility:[facility] Start: 11-26-2023 End: 11-26-2023 Patient encounter procedure Stas Mora MD Work Phone: [facility] [place] Comment on above: Essential hypertensi on, benign (Primary Dx); Hyperlipidemia, unspecified hyperlipidemia type; Edema of both lower legs; Paroxysmal atrial fibrillation (HCC); History of stroke with residual effects; 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, psychotic disturbance, mood disturbance, or anxiety (HCC); Urinary frequency; Abnormal CBC Start: 11-18-2023 End: 11-18-2023 Telephone encounter Coretta Jalloh [facility] Comment on above: Anticoagulation Tele phone Fu (Home INR) Start: 11-16-2023 End: 11-16-2023 Refill Stas Mora MD Work Phone: [facility] [place] Comment on above: Refill Request Start: 10-14-2023 Telephone encounter Coretta Jalloh [facility] Ambulatory Telemanagement Comment on above: Anticoagulation Tele phone Fu (Home INR results ) Start: 09-16-2023 Telephone encounter Colleen Sommer [facility] Comment on above: Anticoagulation Tele phone Fu Start: 09-15-2023 End: 09-15-2023 Patient encounter procedure Stas Mora MD Work Phone: [facility] [place] Comment on above: Edema of both lower legs (Primary Dx) Start: 09-14-2023 End: 09-14-2023 ambulatory Nurse Intm/Famp Triage [facility] Work Phone: Nurse Phone Triage Comment on above: Leg swelling Start: 09-02-2023 Telephone encounter Coretta Jalloh [facility] Comment on above: Anticoagulation Tele phone Fu (Lab INR results) Start: 08-26-2023 Telephone encounter Corettaubaldo Jalloh [facility] Comment on above: Anticoagulation Tele phone Fu (Lab INR results ) Start: 08-19-2023 Telephone encounter Corettaubaldo Jalloh [facility] Comment on above: Anticoagulation Tele phone Fu (Lab INR) Start: 08-14-2023 End: 08-14-2023 Patient encounter procedure Stas Mora MD Work Phone: [facility] Comment on above: Moderate [...] results ) Start: 07-16-2023 Refill Elvis RASHID RN.REPORT ANALYST Work Phone: [facility] Comment on above: Refill Request Start: 07-15-2023 Telephone encounter Coretta Taryaquelin [facility] Comment on above: Anticoagulation Tele phone Fu (Lab INR results ) Start: 07-08-2023 Telephone encounter Coretta Taryaquelin [facility] Comment on above: Anticoagulation Tele phone Fu (Lab INR ) Start: 07-02-2023 Telephone encounter Coretta Yeimi [facility] Comment on above: Opened In Error Start: 07-01-2023 Telephone encounter Coretta Taryaquelin [facility] Comment on above: Anticoagulation Tele phone Fu (Home INR ) Start: 06-25-2023 End: 04-13-2024 Telephone encounter [facility] Comment on above: Patient Update Start: 06-24-2023 Telephone encounter Jerzy Easton MD Work Phone: [facility] [place] Comment on above: Anticoagulation Start: 06-11-2023 Telephone encounter Stas miranda MD Work Phone: [facility] [place] Comment on above: Anticoagulation Start: 06-08-2023 Telephone encounter Jenna Armenta nhof SUPERVISOR AGENCY APPOINTMENTS.REPORT ANALYST Work Phone: [facility] [place] Comment on above: Erroneous encounter- disregard Anticoagulation Start: 06-05-2023 Telephone encounter Jenna Armenta nhof SUPERVISOR AGENCY APPOINTMENTS.REPORT ANALYST Work Phone: [facility] [place] Comment on above: Results (Labs, Criti cleopatra ) Start: 06-04-2023 ambulatory Hortencia Winston RN NURSE O N CALL Comment on above: Results, Lab High Protime and INR Start: 06-04-2023 E-mail encounter fro m caregiver Jasmin Bell MD Work Phone: [facility] [place] Start: 06-04-2023 Telephone encounter Jenna singhof SUPERVISOR AGENCY APPOINTMENTS.REPORT ANALYST Work Phone: [facility] [place] Comment on above: Results; Orders (Lab s ) Start: 06-03-2023 Telephone encounter [facility] Comment on above: Anticoagulation Tele phone Fu (Lab INR results ) Start: 06-01-2023 End: 06-01-2023 Patient encounter procedure Stas Mora MD Work Phone: [facility] [place] Comment on above: Essential hypertensi on, benign (Primary Dx); Paroxysmal atrial fibrillation (HCC); Atherosclerosis 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, unspecified vessel or lesion type, unspecified whether [place] or transplanted heart; Hyperlipidemia, unspecified hyperlipidemia type; History of stroke with residual effects; Speech disturbance, unspecified type Start: 05-27-2023 Telephone encounter [facility] Comment on above: Anticoagulation Tele phone Fu (Lab INR results ) Start: 05-20-2023 Telephone encounter [facility]ta Jalloh [facility] Ambulatory Tele[facility] Comment on above: Anticoagulation Tele phone Fu (Home INR results) Start: 05-13-2023 Telephone encounter Senia Phillips [facility] harm[facility] Ambulatory Telemanagement Comment [...] 02-20-2023 Telephone encounter Elise Paredes [facility] Comment on above: Anticoagulation Tele phone Fu (Lab INR) Start: 02-17-2023 Telephone encounter Stas miranda MD Work Phone: [facility] Comment on above: Results Start: 02-17-2023 End: 02-17-2023 Subsequent hospital visit by physician Mri Radio [facility] W[facility] (I-Stat/1.5t) Work Phone: Radiology Comment on above: Cerebral infarction, unspecified mechanism (HCC) [I63.9] Start: 02-16-2023 End: 02-16-2023 Patient encounter procedure Stas Mora MD Work Phone: [facility] Comment on above: Cerebral infarction, unspecified mechanism (HCC) (Primary Dx); Generalized weakness; Speech disturbance, unspecified type; Hyperlipidemia, unspecified hyperlipidemia type; Essential hypertension, benign; Paroxysmal atrial fibrillation (HCC) Start: 02-13-2023 Telephone encounter Elise Paredes [facility] Ambulatory Telemanagement Comment on above: Anticoagulation Tele phone Fu (Lab INR) Start: 02-10-2023 End: 02-10-2023 Emergency department patient visit [facility] Work Phone: Start: 02-06-2023 Telephone encounter Senia Phillips [facility] Ambulatory Telemanagement Comment on above: Anticoagulation Tele phone Fu (INR Lab Result) Start: 01-19-2023 Telephone encounter Paige Hickman [facility] Ambulatory Telemanagement Comment on above: Anticoagulation Tele phone Fu Start: 01-16-2023 Orders Only Stas newman MD Work Phone: [facility] [place] Comment on above: MCFP current us e of anticoagulant (Primary Dx); [...] Emergency department patient visit STERLING LYNCH DO [facility] Start: 11-07-2022 Telephone encounter Senia Cross [...] procedure Stas Mora MD Work Phone: [facility] [place] Comment on above: Encounter for Medica [...] Lab Result) Start: 07-04-2022 Telephone encounter Lety Stephenaston [facility] Comment on above: Anticoagulation Tele phone Fu (Lab INR result ) Start: 06-23-2022 Refill Elvis RASHID RN.REPORT ANALYST Work Phone: [facility] Comment on above: Refill Request Start: 06-20-2022 Telephone encounter Senia Cross [facility] P harmacy Ambulatory Telemanagement Comment on above: Anticoagulation Tele phone Fu (INR Lab Result) Start: 06-06-2022 Telephone encounter Senia Cross [facility] P harmacy Ambulatory Telemanagement Comment on above: Anticoagulation Tele phone Fu (INR Lab Result) Start: 05-30-2022 Telephone encounter Stas miranda MD Work Phone: [facility] Comment on above: Opened In Error Start: 05-22-2022 Telephone encounter Jenna Armenta nhof SUPERVISOR AGENCY APPOINTMENTS.REPORT ANALYST Work Phone: [facility] [place] Comment on above: Results (X-ray hip) Start: 05-21-2022 End: 05-21-2022 Subsequent hospital visit by physician Jaymie [facility] [place] Work Phone: Radiology Comment on above: Left hip pain [M25.5 52] Start: 05-21-2022 ambulatory Fani Grace RN NURSE O N CALL Comment on above: Fall Fall; Hip Pain Start: 05-19-2022 Telephone encounter Stas miranda MD Work Phone: [facility] [place] Comment on above: Anticoagulation Start: 05-16-2022 Telephone encounter Senia Cross [facility] P harmacy Ambulatory Telemanagement Comment on above: Anticoagulation Tele phone Fu Start: 05-02-2022 Telephone encounter Senia Phillips [facility] Ambulatory Telemanagement Comment on above: Anticoagulation Tele phone Fu (INR Lab Result) Start: 04-18-2022 Telephone encounter Senia Phillips [facility] Ambulatory Telemanagement Comment on above: Anticoagulation Tele phone Fu (INR Lab Result) Start: 04-04-2022 Telephone encounter Elise Paredes [facility] Comment on above: Anticoagulation Tele phone Fu (Lab INR) Start: 03-31-2022 Telephone encounter Stas miranda MD Work Phone: [facility] [place] Comment on above: Release Of Medical R ecords (DC PCP) Start: 03-21-2022 Telephone encounter Carmelinajustin Cruz [facility] Comment on above: Anticoagulation Tele phone Fu Start: 02-21-2022 Telephone encounter Kristian Ferguson MD Work Phone: [facility] [place] Comment on above: Anticoagulation Start: 02-10-2022 Telephone encounter Stas miranda MD Work Phone: [facility] [place] Comment on above: Opened In Error Start: 01-27-2022 Telephone encounter [facility] Comment on above: Anticoagulation Tele phone Fu (Lab INR Result) Start: 01-20-2022 Telephone encounter [facility] Comment on above: Anticoagulation Tele phone Fu (Lab INR Result) Start: 01-17-2022 Telephone encounter Stas miranda MD Work Phone: [facility] [place] Comment on above: Anticoagulation; Cri tical Results (INR) Start: 01-13-2022 Refill Stas newman MD Work Phone: [facility] [place] Comment on above: Refill Request; Refi ll Request Start: 01-03-2022 Telephone encounter Senia Phillips [facility] Ambulatory Telemanagement Comment on above: Anticoagulation Tele phone Fu (INR Home Test Result) Start: 01-02-2022 Telephone encounter Stas miranda MD Work Phone: [facility] [place] Comment on above: Results Start: 12-26-2021 End: 12-26-2021 Patient encounter procedure Stas Mora MD Work Phone: [facility] Comment on above: Hospital discharge f ollow-up (Primary Dx); Encounter for immunization; TIA (transient ischemic attack); Thyroid nodule; Essential hypertension, benign; Paroxysmal atrial fibrillation (HCC); Atherosclerosis 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, unspecified vessel or lesion type, unspecified whether [place] or transplanted heart Start: 12-22-2021 Non-patient / Non-visit Dr. Maria E Mora Work Phone: [facility] Start: 12-21-2021 Non-patient / Non-visit Dr. Maria E Mora Work Phone: [facility] Start: 12-21-2021 End: 12-22-2021 Evaluation and management of inpatient [facility] Start: 12-21-2021 End: 12-22-[address] Stas Mora Work Phone: [facility] Work Phone: Start: 12-20-2021 Telephone encounter Stas miranda MD Work Phone: [facility] Comment on above: Opened In Error Anticoagulation Tele phone Fu (INR Lab Result) Start: 12-06-2021 Telephone encounter Senia Phillips [facility] Ambulatory Telemanagement Comment on above: Anticoagulation Tele phone Fu (INR Lab Result) Start: 11-22-2021 Telephone encounter Janice Huang [facility]ulatory Telemanagement Comment on above: Anticoagulation Tele phone Fu (INR) Start: 11-08-2021 Telephone encounter Stas miranda MD Work Phone: [facility] Comment on above: Opened In Error Anticoagulation Tele phone Fu (INR Lab Result) Start: 10-25-2021 Telephone encounter Janice Huang [facility]ulatory Tele[facility] Comment on above: Anticoagulation Tele phone Fu (lab INR ) Start: 09-27-2021 Telephone encounter Yomi Wills [facility] Tele[facility] Comment on above: Anticoagulation Tele phone Fu (Lab INR Result) Start: 09-13-2021 Orders Only Stas newman MD Work Phone: [facility] [place] Comment on above: MCFP current us e of anticoagulant (Primary Dx); Encounter for monitoring Coumadin therapy Anticoagulation Tele phone Fu (INR Lab Result) Start: 09-05-2021 End: 09-05-2021 Patient encounter procedure Stas Mora MD Work Phone: [facility] [place] Comment on above: Encounter for Medica re annual wellness exam (Primary Dx); Paroxysmal atrial fibrillation (HCC); Essential hypertension, benign Start: 08-30-2021 Telephone encounter Jenna Armenta nhof SUPERVISOR AGENCY APPOINTMENTS.REPORT ANALYST Work Phone: [facility] [place] Comment on above: Orders (INR ) Anticoagulation Tele phone Fu (INR Lab Result) Start: 08-16-2021 Orders Only Stas newman MD Work Phone: [facility] [place] Comment on above: Anticoagulation Start: 08-02-2021 Telephone encounter Senia Phillips [facility] Ambulatory Telemanagement Comment on above: Anticoagulation Tele phone Fu (INR Lab Result) Start: 07-16-2021 Telephone encounter Stas miranda MD Work Phone: [facility] [place] Comment on above: Results Start: 07-13-2021 Refill Elvis RASHID RN.REPORT ANALYST Work Phone: [facility] [place] Comment on above: Refill Request Start: 07-08-2021 End: 07-08-2021 Patient encounter procedure Stas Mora MD Work Phone: [facility] [place] Comment on above: Essential hypertensi on, benign (Primary Dx); Atherosclerosis 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, unspecified vessel or lesion type, unspecified whether ch[place] or transplanted heart; Paroxysmal atrial fibrillation (HCC); Primary osteoarthritis of both knees Start: 07-03-2021 Telephone encounter Stas miranda MD Work Phone: [facility] [place] Comment on above: Anticoagulation Tele phone Fu (Lab INR result) Start: 06-12-2021 Telephone encounter Stas miranda MD Work Phone: [facility] [place] Comment on above: Anticoagulation (Lab INR result) Start: 03-12-2020 End: 03-12-2020 Subsequent hospital visit by physician Jaymie [facility] [place] Work Phone: Radiology Comment on above: Acute right-sided lo w back pain, unspecified whether sciatica present [M54.5] Start: 02-02-2018 Ambulatory DARRELL OLIVEIRA Facility :[facility] Start: 06-02-2017 End: 06-02-2017 [facility] DARRELL OLIVEIRA [facility] Procedures Date Procedure Procedure Detail Performing Clinician Start: 09-06-[address] Stas Mora MD Work Phone: Start: 09-05-2024 Urnls dip stick/tabl et reagent auto microscopy Dr. Stas Mroa MD Work Phone: Start: 09-01-2024 Blood culture [...] scr eening assessment Coretta Jalloh [facility] Start: 02-17-2023 Mri brain brain stem w/o contrast material Stas Mora MD Work Phone: Start: 02-10-2023 Plain chest X-ray Start: 02-10-2023 SARS-CoV-2 & FLU Ant igen (Rapid) Start: 05-21-2022 Radex hip unilateral with pelvis 2-3 views Jenna Fitzpatrick SUPERVISOR AGENCY APPOINTMENTS.REPORT ANALYST Work Phone: Start: 05-19-2022 PROTHROMBIN TIME/PT [facility] [...] Detail Author Start: 02-27-2031 Urine microalbumin profile [facility] Start: 05-26-2027 Diabetes Screening Diabetes Screenin [facility] Start: 06-02-2026 Diabetes Screening Diabetes Screenin g [facility] Start: 08-15-2025 DIABETES SCREEN DIABETES SCREEN [facility] Start: 08-15-2025 Diabetes Screening Diabetes Screenin g [facility] Start: 05-25-2025 Hepatitis B surface antibody level LDL Cholesterol [facility] Start: 03-30-2025 End: 03-30-2025 Patient encounter procedure 03/30/2025 11:00 AM EST Office Visit Geriatrics [address] [place] [address] Luciana Cisneros MD [address] [place] [address] follow up 6 months Geriatrics Comment on above: follow up 6 months Start: 02-21-2025 DIABETES SCREEN DIABETES SCREEN [facility] Start: 12-06-2024 DIABETES SCREEN DIABETES SCREEN [facility] Start: 12-05-2024 End: 12-05-2024 Patient encounter procedure 12/05/2024 12:40 PM EDT Office Visit [facility] [address] [facility] [place] [id number] Stas Mora MD [address] [facility] [place] [id number] reschedule from 12/01 [facility] Comment on above: reschedule from 12/01 Start: 12-01-2024 End: 12-01-2024 Patient encounter procedure 12/01/2024 9:40 AM EDT Office Visit [facility] [address] [facility] [place] [id number] Stas Mora MD [address] [facility] [place] [id number] 6 mo f/u [facility] Comment on above: 6 mo f/u Start: 11-26-2024 End: 02-25-2025 CBC W Auto Differential panel - Blood COMPLETE BLOOD COUNT AND DIFFERENTIAL Lab Routine Essential hypertension, benign Expected: 11/26/2024 (Approximate), Expires: 02/25/2025 [facility] Comment on above: Expected: 11/26/2024 (Approximate), Expires: 02/25/2025 Start: 11-26-2024 End: 02-25-2025 Comprehensive metabolic 2000 panel - Serum or Plasma COMPREHENSIVE METABOLIC PANEL Lab Routine Essential hypertension, benign Hyperlipidemia, unspecified hyperlipidemia type Expected: 11/26/2024 (Approximate), Expires: 02/25/2025 [facility] Work Phone: Comment on above: Expected: 11/26/2024 (Approximate), Expires: 02/25/2025 Start: 11-26-2024 End: 02-25-2025 Lipid 1996 panel - Serum or Plasma LIPID PANEL BASIC Lab Routine Essential hypertension, benign Hyperlipidemia, unspecified hyperlipidemia type Expected: 11/26/2024 (Approximate), Expires: 02/25/2025 [facility] Comment on above: Expected: 11/26/2024 (Approximate), Expires: 02/25/2025 Start: 11-25-2024 RSV Vaccine (1 - 1-d ose 60+ series) RSV Vaccine (1 - 1-dose 60+ series) [facility] Comment on above: Postponed from 08/12 (Declined at this time) Start: 11-25-2024 RSV Vaccine (1 - 1-d ose 75+ series) RSV Vaccine (1 - 1-dose 75+ series) [facility] Comment on above: Postponed from 08/12 (Declined at this time) Start: 11-23-2024 [facility] Start: 11-21-2024 Influenza vaccination Influenza Vacc ine (#1) [facility] Start: 09-06-2024 Patient discharge [facility] Start: 09-02-2024 Admission procedure [facility] Start: 09-01-2024 End: 09-02-2024 [facility] Start: 09-01-2024 Blood culture Blood Culture [facility] Start: 09-01-2024 Application of intermittent pneumatic compression device [facility] Start: 09-01-2024 Fall prevention [facility] Start: 09-01-2024 Oxygen therapy [facility] Start: 09-01-2024 Provision of activit y privileges [facility] Start: 09-01-2024 Assessment of risk o f venous thromboembolism [facility] Start: 09-01-2024 Insertion of cathete r into peripheral vein [facility] Start: 09-01-2024 Providing care accor ding to standard [facility] Start: 09-01-2024 Referral to occupati onal therapist [facility] Start: 09-01-2024 Referral to service [facility] Start: 09-01-2024 [facility] Start: 09-01-2024 Following clinical pathway protocol [facility] Start: 09-01-2024 Admission procedure [facility] Start: 09-01-2024 Hospital admission, emergency, from emergency room, medical nature [facility] Start: 08-31-2024 End: 08-31-2024 Patient encounter procedure 08/31/2024 11:00 AM EDT Office Visit Geriatrics [address] [place] [address] Luciana Cisneros MD [address] [place] [address] 3 month f/u Geriatrics Comment on above: 3 month f/u Start: 2024 Anxiety Screening Anxiety Screening [facility] Start: 2024 Depression Screening Depression Scre ening [facility] Start: 07-08-2024 DIABETES SCREEN DIABETES SCREEN [facility] Start: 06-02-2024 Hepatitis B surface antibody level LDL Cholesterol [facility] Start: 06-01-2024 End: 06-01-2024 Patient encounter procedure 06/01/2024 3:00 PM EDT Office Visit Geriatrics [address] [place] [address] Luciana Cisneros MD [address] [facility] [address] Follow up visit for MRI Geriatrics Comment on above: Follow up visit for MRI Start: 06-01-2024 Covid-19 Vaccine () Covid-19 Vaccine () [facility] Start: 05-30-2024 End: 05-30-2024 Patient encounter procedure 05/30/2024 11:20 AM EDT Office Visit [facility] [place] [address] [facility] [place] [address] Luciana Cisneros MD [address] [place] [address] Follow up visit for MRI [facility] [place] Comment on above: Follow up visit for MRI Start: 05-26-2024 End: 05-26-2024 Patient encounter procedure 05/26/2024 9:20 AM EST Office Visit [facility] [place] [address] [facility] [place], [place] [phone] Stas Mora MD [address] [facility] [address] 6 mo f/u [facility] Comment on above: 6 mo f/u Start: 05-25-2024 End: 08-24-2024 CBC W Auto Differential panel - Blood COMPLETE BLOOD COUNT AND DIFFERENTIAL Lab Routine Abnormal CBC Expected: 05/25/2024 (Approximate), Expires: 08/24/2024 [facility] Comment on above: Expected: 05/25/2024 (Approximate), Expires: 08/24/2024 Start: 05-25-2024 End: 08-24-2024 Comprehensive metabolic 2000 panel - Serum or Plasma COMPREHENSIVE METABOLIC PANEL Lab Routine Essential hypertension, benign Hyperlipidemia, unspecified hyperlipidemia type Expected: 05/25/2024 (Approximate), Expires: 08/24/2024 [facility] Work Phone: Comment on above: Expected: 05/25/2024 (Approximate), Expires: 08/24/2024 Start: 05-25-2024 End: 08-24-2024 Lipid 1996 panel - Serum or Plasma LIPID PANEL BASIC Lab Routine Essential hypertension, benign Hyperlipidemia, unspecified hyperlipidemia type Expected: 05/25/2024 (Approximate), Expires: 08/24/2024 [facility] Comment on above: Expected: 05/25/2024 (Approximate), Expires: 08/24/2024 Start: 05-25-2024 End: 05-25-2024 ambulatory 05/25/2024 8:30 AM EST Results Only [facility] [address] [place] [address] [facility] Start: 05-23-2024 End: 05-23-2024 Patient encounter procedure 05/23/2024 2:30 PM EST Appointment [facility] [address] [place] [address] Cognitive impairment, mild, 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] [facility] Comment on above: Cognitive impairment , mild, 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] Start: 04-29-2024 End: 04-29-2024 Patient encounter procedure 04/29/2024 3:40 PM EST Office Visit [facility] [address] [place] [address] Stas Mora MD [address] [place], [place] [address] memory issues,See TE [facility] [place] Comment on above: memory issues,See TE Start: 04-27-2024 End: 04-27-2024 Patient encounter procedure 04/27/2024 9:30 AM EST Office Visit Geriatrics [address] [place], [place] [phone] Luciana Cisneros MD [address] [place], [place] [id number] Dementia, unspecified dementia severity, unspecified dementia type, unspecified whether behavioral, psychotic, or mood disturbance or anxiety (HCC) [F03.90] Geriatrics Comment on above: Dementia, unspecifie d dementia severity, unspecified dementia type, unspecified whether behavioral, psychotic, or mood disturbance or anxiety (HCC) [F03.90] Start: 03-23-2024 Advance Directive Discussion Advance Directive Discussion [facility] Start: 03-23-2024 Medicare Advantage A nnual Wellness Visit Medicare Advantage Annual Wellness Visit [facility] Start: 03-13-2024 DIABETES SCREEN DIABETES SCREEN [facility] Start: 11-26-2023 End: 11-26-2023 Patient encounter procedure [facility] [place] Comment on above: 6 month follow up 6 month follow up, jessica bashir, on aricept x 3 months Start: 11-22-2023 Covid-19 Vaccine ( season) Covid-19 Vaccine ( season) [facility] Start: 11-22-2023 Influenza vaccination Influenza Vacc ine (#1) [facility] Start: 09-15-2023 End: 09-15-2023 Patient encounter procedure 09/15/2023 8:40 AM EDT Office Visit [facility] [address] [place], [place] [id number] Stas Mora MD [address] [place], [place] [phone] leg swelling- both legs--See triage 09/14/2023. [facility] Comment on above: leg swelling- both l egs--See triage 09/14/2023. Start: 08-16-2023 Hepatitis B surface antibody level LDL CHOLESTEROL [facility] Start: 08-14-2023 End: 08-14-2023 Patient encounter procedure 08/14/2023 10:00 AM EDT Office Visit Family [facility] [place] [address] [place] [address] Stas Mora MD [address] [place], [place] [id number] Memory Issues [facility] [place] Comment on above: Memory Issues Start: 06-04-2023 End: 09-03-2023 Ferritin [Mass/volume] in Serum or Plasma [facility] Work Phone: Comment on above: Expected: 06/04/2023 , Expires: 09/03/2023 Start: 06-04-2023 End: 09-03-2023 Iron and Iron binding capacity panel - Serum or Plasma [facility] Work Phone: Comment on above: Expected: 06/04/2023 , Expires: 09/03/2023 Start: 06-01-2023 End: 08-31-2023 CBC panel - Blood by Automated count CBC Lab Routine Paroxysmal atrial fibrillation (HCC) Essential hypertension, benign Expected: 06/01/2023 (Approximate), Expires: 08/31/2023 [facility] Work Phone: Comment on above: Expected: 06/01/2023 (Approximate), Expires: 08/31/2023 Start: 06-01-2023 End: 08-31-2023 Comprehensive metabolic 2000 panel - Serum or Plasma COMP METABOLIC PANEL Lab Routine Paroxysmal atrial fibrillation (HCC) Essential hypertension, benign Hyperlipidemia, unspecified hyperlipidemia type Expected: 06/01/2023 (Approximate), Expires: 08/31/2023 [facility] Work Phone: Comment on above: Expected: 06/01/2023 (Approximate), Expires: 08/31/2023 Start: 06-01-2023 End: 08-31-2023 Lipid 1996 panel - Serum or Plasma LIPID PANEL BASIC Lab Routine Paroxysmal atrial fibrillation (HCC) Essential hypertension, benign Hyperlipidemia, unspecified hyperlipidemia type Expected: 06/01/2023 (Approximate), Expires: 08/31/2023 [facility] Work Phone: Comment on above: Expected: 06/01/2023 (Approximate), Expires: 08/31/2023 Start: 05-13-2023 Covid-19 Vaccine () Covid-19 Vaccine () [facility] Start: 03-23-2023 Advance Directive Discussion Advance Directive Discussion [facility] Start: 03-23-2023 Behavioral Health Screening Behavioral Health Screening [facility] Start: 03-23-2023 Depression Assessment [facility] Start: 02-21-2023 Hepatitis B surface antibody level LDL CHOLESTEROL [facility] Start: 02-10-2023 [facility] Start: 12-06-2022 Hepatitis B surface antibody level LDL CHOLESTEROL [facility] Start: 11-21-2022 Covid-19 Vaccine () Covid-19 Vaccine () [facility] Start: 11-21-2022 Influenza vaccination C [facility] Start: 09-05-2022 PNEUMOCOCCAL: 65+ (2 - PCV) PNEUMOCOCCAL: 65+ (2 - PCV) [facility] Comment on above: Postponed from 02/21 (Declined at this time) Start: 07-08-2022 Hepatitis B surface antibody level LDL CHOLESTEROL [facility] Start: 04-26-2022 COVID-19 VACCINE (6 - Pfizer series) COVID-19 VACCINE (6 - Pfizer series) [facility] Start: 03-23-2022 ADVANCE DIRECTIVE DISCUSSION ADVANCE DIRECTIVE DISCUSSION [facility] Start: 03-23-2022 DE[address] [facility] Start: 03-13-2022 Hepatitis B surface antibody level LDL CHOLESTEROL [facility] Start: 03-10-2022 End: 05-10-2022 CBC panel - Blood by Automated count CBC Lab Routine TIA (transient ischemic attack) Essential hypertension, benign Atherosclerosis 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, unspecified vessel or lesion type, unspecified whether [place] or transplanted heart Expected: 03/10/2022 (Approximate), Expires: 05/10/2022 [facility] Work Phone: Comment on above: Expected: 03/10/2022 (Approximate), Expires: 05/10/2022 Start: 03-10-2022 End: 05-10-2022 Comprehensive metabolic 2000 panel - Serum or Plasma COMP METABOLIC PANEL Lab Routine TIA (transient ischemic attack) Essential hypertension, benign Atherosclerosis 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, unspecified vessel or lesion type, unspecified whether [place] or transplanted heart Expected: 03/10/2022 (Approximate), Expires: 05/10/2022 [facility] Work Phone: Comment on above: Expected: 03/10/2022 (Approximate), Expires: 05/10/2022 Start: 03-10-2022 End: 05-10-2022 Lipid 1996 panel - Serum or Plasma LIPID PANEL BASIC Lab Routine TIA (transient ischemic attack) Essential hypertension, benign Atherosclerosis 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, unspecified vessel or lesion type, unspecified whether [place] or transplanted heart Expected: 03/10/2022 (Approximate), Expires: 05/10/2022 [facility] Work Phone: Comment on above: Expected: 03/10/2022 (Approximate), Expires: 05/10/2022 Start: 01-03-2022 End: 03-05-2022 Comprehensive metabolic 2000 panel - Serum or Plasma COMP METABOLIC PANEL Lab Routine Atherosclerosis 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, unspecified vessel or lesion type, unspecified whether [place] or transplanted heart Essential hypertension, benign Expected: 01/03/2022 (Approximate), Expires: 03/05/2022 [facility] Work Phone: Comment on above: Expected: 01/03/2022 (Approximate), Expires: 03/05/2022 Start: 01-03-2022 End: 03-05-2022 LIPID PANEL BASIC LIPID PANEL BASIC Lab Routine Atherosclerosis 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, unspecified vessel or lesion type, unspecified whether [place] or transplanted heart Essential hypertension, benign Expected: 01/03/2022 (Approximate), Expires: 03/05/2022 [facility] Work Phone: Comment on above: Expected: 01/03/2022 (Approximate), Expires: 03/05/2022 Start: 12-24-[address] [facility] Work Phone: Start: 12-23-[address] [facility] Work Phone: Start: 12-22-2021 Patient discharge [facility] Work Phone: Start: 12-21-2021 Assessment of risk o f venous thromboembolism [facility] Work Phone: Start: 12-21-2021 Cardiac monitoring [facility] Work Phone: Start: 12-21-2021 Catheterization of vein [facility] Work Phone: Start: 12-21-2021 Continuous pulse oximetry [facility] Work Phone: Start: 12-21-2021 Elevation of head of bed [facility] Work Phone: Start: 12-21-2021 Exercises [facility] Work Phone: Start: 12-21-[address] anned interventions [facility] Work Phone: Start: 12-21-2021 Insertion of cathete r into peripheral vein [facility] Work Phone: Start: 12-21-2021 Measuring intake and output [facility] Work Phone: Start: 12-21-2021 Notification of physician [facility] Work Phone: Start: 12-21-2021 Oxygen therapy [facility] Work Phone: Start: 12-21-2021 Providing care accor ding to standard [facility] Work Phone: Start: 12-21-2021 Provision of activit y privileges [facility] Work Phone: Start: 12-21-2021 Referral to occupati onal therapist [facility] Work Phone: Start: 12-21-2021 Referral to service [facility] Work Phone: Start: 12-21-2021 Tobacco use cessatio n education [facility] Work Phone: Start: 12-21-2021 US scan of thyroid Thyroid [facility] Work Phone: Start: 12-21-2021 [facility] Work Phone: Start: 12-21-2021 End: 12-21-2021 Following clinical pathway protocol [facility] Work Phone: Start: 12-21-2021 Verification routine Wo [facility] Work Phone: Start: 12-21-2021 Admission procedure [facility] Work Phone: Start: 12-21-2021 CT of head without contrast STROKE Brain/Head without Cont [facility] Work Phone: Start: 12-21-2021 CT Unspecified body region WO contrast [facility] Work Phone: Start: 12-21-2021 Oxygen therapy [facility] Work Phone: Start: 12-21-2021 End: 12-22-2021 [facility] Work Phone: Start: 11-21-2021 Influenza vaccination INFLUENZA (#1) [facility] Start: 09-24-2021 COVID-19 VACCINE (5 - Booster for Pfizer series) COVID-19 VACCINE (5 - Booster for Pfizer series) [facility] Start: 08-30-2021 End: 10-30-2021 PT panel - Platelet poor plasma by Coagulation assay [facility] Work Phone: Comment on above: Expected: 08/30/2021 , Expires: 10/30/2021 Start: 07-08-2021 End: 09-07-2021 Comprehensive metabolic 2000 panel - Serum or Plasma [facility] Work Phone: Comment on above: Expected: 07/08/2021 (Approximate), Expires: 09/07/2021 Start: 07-08-2021 End: 06-18-2022 LIPID PANEL BASIC [facility] Work Phone: Comment on above: Expected: 07/08/2021 (Approximate), Expires: 09/07/2021 Start: 04-27-2021 COVID-19 VACCINE (4 - Booster for Pfizer series) COVID-19 VACCINE (4 - Booster for Pfizer series) [facility] Start: 03-23-2021 ADVANCE DIRECTIVE DISCUSSION ADVANCE DIRECTIVE DISCUSSION [facility] Start: 03-23-2021 DEPRESSION ASSESSMENT DEPRESSION ASS ESSMENT [facility] Start: 02-21-2009 Pneumococcal Vaccine : 65+ (2 - PCV) Pneumococcal Vaccine: 65+ (2 - PCV) [facility] Start: 02-21-2009 PNEUMOCOCCAL: 65+ (2 - PCV) PNEUMOCOCCAL: 65+ (2 - PCV) [facility] Start: 02-23-2008 Urine microalbumin profile DTAP,TDAP,TD (1 - Tdap) [facility] Start: 1995 RSV Vaccine (1 - 1-d ose 60+ series) RSV Vaccine (1 - 1-dose 60+ series) [facility] Start: 08-12-1985 SHINGRIX VACCINE (1 of 2) VALDES GRIX VACCINE (1 of 2) [facility] Anion gap in Serum o r Plasma [facility] BUN/Creatinine ratio [facility] Calcium [Mass/volume ] in Serum or Plasma [facility] Carbon dioxide, tota l [Moles/volume] in Central venous blood [facility] Creatinine [Mass/vol ume] in Serum or Plasma [facility] Glucose [Mass/volume ] in Serum or Plasma [facility] Hemoglobin.gastroint estin al.lower [Presence] in Stool by Immunoassay FECAL OCCULT BLOOD TEST Lab Routine Abnormal CBC 06/04/2023 2:13 PM EDT [facility] Work Phone: INR in Blood by Coagulation assay [facility] Measurement of renal function [facility] End: 05-27-2025 MR Brain WO contrast MRI BRAIN W QUANT WO IVCON Radiology Routine Cognitive impairment, mild, so stated 1 Occurrences starting 04/27/2024 until 05/27/2025 [facility] Work Phone: Comment on above: 1 Occurrences starti ng 04/27/2024 until 05/27/2025 End: 05-27-2025 MR Unspecified body region 3D post processing MRI 3D BRAIN QUANT Radiology Routine Cognitive impairment, mild, so stated 1 Occurrences starting 04/27/2024 until 05/27/2025 [facility] Comment on above: 1 Occurrences starti ng 04/27/2024 until 05/27/2025 End: 03-17-2024 Mri brain brain stem w/o contrast material MRI BRAIN WO IVCON Radiology STAT Cerebral infarction, unspecified mechanism (HCC) 1 Occurrences starting 02/16/2023 until 03/17/2024 [facility] Work Phone: Comment on above: 1 Occurrences starti ng 02/16/2023 until 03/17/2024 Mri brain brain stem w/o contrast material MRI BRAIN WO IVCON Radiology STAT Cerebral infarction, unspecified mechanism (HCC) 02/17/2023 8:13 AM EST [facility] Work Phone: Patient Education ED Weakness (U ncertain Cause) [facility] Work Phone: Patient referral [facility] Work Phone: Potassium measurement [facility] Prothrombin time [facility] End: 09-13-2022 PT panel - Platelet poor plasma by Coagulation assay PROTHROMBIN TIME/PT Lab Routine [facility] current use of anticoagulant Encounter for monitoring Coumadin therapy Once per week for 99 Occurrences starting 09/13/2021 until 09/13/2022 [facility] Work Phone: Comment on above: Once per week for 99 Occurrences starting 09/13/2021 until 09/13/2022 PT panel - Platelet poor plasma by Coagulation assay PROTHROMBIN 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 Encounter for monitoring Coumadin therapy 09/13/2021 8:42 AM EDT [facility] Work Phone: End: 01-16-2024 PT panel - Platelet poor plasma by Coagulation assay PROTHROMBIN TIME/PT Lab Routine [facility]FP current use of anticoagulant Paroxysmal atrial fibrillation (HCC) Once per week for 99 Occurrences starting 01/16/2023 until 01/16/2024 [facility] Work Phone: Comment on above: Once per week for 99 Occurrences starting 01/16/2023 until 01/16/2024 End: 12-23-2024 PT panel - Platelet poor plasma by Coagulation assay PROTHROMBIN TIME Lab STAT 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 Urea nitrogen [Mass/volume] in Serum or Plasma [facility] End: 01-25-2023 Us soft tissue head & neck real time imge docm US THYROID/PARATHYROID Radiology Routine Thyroid nodule 1 Occurrences starting 12/26/2021 until 01/25/2023 [facility] Work Phone: Comment on above: 1 Occurrences starti ng 12/26/2021 until 01/25/2023 [facility] Immunizations Immunization Date Immunization Notes Care Provider Fa [facility] 12-03-2023 influenza virus vacc ine, unspecified formulation Stas Mora MD Work Phone: [facility] 01-10-2023 influenza (HD-IIV4) vaccine, age 65+ yr, high dose, quadrivalent, PF (FLUZONE HIGH-DOSE) Corettaubaldo Jalloh [facility] 01-10-2023 influenza virus vacc ine, unspecified formulation Coretta Yeimi [facility] 12-26-2021 influenza, high-dose , quadrivalent vaccine (FLUZONE HIGH DOSE QUADRIVALENT) Stas Mora MD Work Phone: [facility] 12-26-2021 influenza virus vacc ine, unspecified formulation Senia Phillips [facility] 02-27-2021 tetanus toxoid, redu natividad diphtheria toxoid, and acellular pertussis vaccine, adsorbed Stas Mora MD Work Phone: [facility] 02-27-2021 zoster vaccine recombinant Stas Mora MD Work Phone: [facility] 12-25-2020 Covid (Pfizer) Dr. Stas gonzales Work Phone: [facility] 12-10-2020 influenza (HD-IIV4) vaccine, age 65+ yr, high dose, quadrivalent, PF (FLUZONE HIGH-DOSE) Coretta Jalloh [facility] 12-10-2020 influenza, high dose seasonal, preservative-free Stas Mora MD Work Phone: [facility] 09-17-2020 zoster vaccine recombinant Stas Mora MD Work Phone: [facility] 05-09-2020 Covid (Pfizer) Dr. Stas gonzales Work Phone: [facility] 04-18-2020 Covid (Pfizer) Dr. Stas gonzales Work Phone: [facility] 12-24-2016 influenza, high dose seasonal, preservative-free Stas Mora MD Work Phone: [facility] 12-22-2015 Influenza virus vaccine [facility] 12-22-2015 influenza, seasonal, injectable, preservative free Stas Mora MD Work Phone: [facility] Work Phone: 01-30-2014 influenza, high dose seasonal, preservative-free Stas Mora MD Work Phone: [facility] Work Phone: 01-24-2013 influenza virus vacc ine, unspecified formulation Stas Mora MD Work Phone: [facility] 02-22-2008 pneumococcal polysaccharide vaccine, 23 valent Stas Mora MD Work Phone: [facility] Work Phone: 02-22-2008 tetanus and diphther ia toxoids, adsorbed, preservative free, for adult use (2 Lf of tetanus toxoid and 2 Lf of diphtheria toxoid) Stas Mora MD Work Phone: [facility] Work Phone: Payers Date Payer Category Payer Self-pay [id number] 2022 Unknown [id number] 2016 Medicare [employer] ADVANTAGE [place] MEDICARE [id number] 2016-Present [phone] [address] [place] [address] HMO [id number] 2016 Medicare [employer] RE ADVANTAGE [place] MEDICARE [id number] 2016-Present [phone] [address] [place] [address] O [id number] 2016 Medicare (Managed Care) [place] MEDIC ARE [id number] 2016 Medicare [id number] 1935 Unknown [id number]. 2.627 1935 Unknown [id number]. 2.627 Unknown VA AUTH REQUIR ED SEE NOTE [id number] Unknown VA AUTH REQUIR ED SEE NOTE . [id number] Unknown [id number] 2.16.840.1.577846.3.579. 2.462 Unknown [id number] 2.16.840.1.406550.3.579. 2.462 Unknown [id number] 2.16.840.1.336404.3.579. 2.462 Unknown [id number] 2.16.840.1.320427.3.579. 2.462 Unknown [id number] 2.16.840.1.996894.3.579. 2.462 Unknown [id number] 2.16.840.1.195516.3.579. 2.462 Unknown [id number] 2.16.840.1.236619.3.579. 2.462 Unknown [id number] 2.16.840.1.857956.3.579. 2.462 Unknown [id number] 2.840.1.156102.3.579. 2.462 Unknown [id number] 2.16.840.1.548413.3.579. 2.462 Unknown [id number] 2.16.840.1.324563.3.579. 2.462 Unknown [id number] 2.16.840.1.660221.3.579. 2.462 Unknown [id number] 2.16.840.1.468314.3.579. 2.462 Unknown [id number] 2.16.840.1.446807.3.579. 2.462 Unknown [id number] 2.16.840.1.176636.3.579. 2.462 Unknown [id number] 2.16.840.1.236657.3.579. 2.462 Unknown [id number] 2.16.840.1.074678.3.579. 2.462 Unknown [id number] 2.16.840.1.864319.3.579. 2.462 Unknown [id number] 2.16.840.1.828242.3.579. 2.462 Unknown [id number] 2.16.840.1.682728.3.579. 2.462 Unknown [id number] 2.16.840.1.242738.3.579. 2.462 Unknown [id number] 2.16.840.1.065019.3.579. 2.462 Unknown [id number] 2.16.840.1.135615.3.579. 2.462 Unknown [id number] 2.16.840.1.881499.3.579. 2.462 Unknown [id number] 2.16.840.1.304807.3.579. 2.462 Unknown [id number] 2.16.840.1.199013.3.579. 2.462 Unknown [id number] 2.16.840.1.250634.3.579. 2.462 Unknown [id number] 2.16840.1.123245.3.579. 2.462 Unknown [id number] 2.16.840.1.020011.3.579. 2.462 Social History Date Type Detail Facility Start: 05-04-2017 End: 09-01-2024 Tobacco smoking status NHIS Ex-smoker [facility] Start: 02-15-2021 End: 07-28-2024 Alcohol intake Current non-drinker of alcohol (finding) [facility] Start: 08-26-2020 End: 08-29-2021 History SDOH Alcohol Frequency 2 [facility] Start: 08-26-2020 End: 08-29-2021 History SDOH Alcohol Std Drinks 1 [facility] Start: 08-26-2020 End: 08-29-2021 History SDOH Social Connections Hinduism 3 [facility] Start: 08-26-2020 End: 08-29-2021 History SDOH Social Connections Living 5 [facility] Start: 08-26-2020 History SDOH Physical Activity MPS 6 [facility] Start: 08-26-2020 Education 12 [facility] Start: 1935 Sex Assigned At Male [facility] Start: 02-11-2020 End: 12-26-2021 Exposure to SARS-CoV-2 (event) Not sure [facility] History of tobacco use Current smoker [facility] Start: 05-04-2017 End: 12-26-2021 Tobacco use and exposure Smokeless tobacco non-user [facility] Start: 12-21-2021 End: 02-10-2023 Tobacco smoking status NHIS Unknown if ever smoked [facility] Start: 12-22-2021 Non-smoker [facility] Start: 12-26-2021 Tobacco Comment 30 yaers ago [facility] Start: 02-28-2020 End: 08-29-2021 History of Social function [facility] Start: 02-28-2020 End: 08-29-2021 Social connection and isolation panel [facility] Do you belong to any clubs or organizations such as jewish groups, unions, fraManifest or athletic groups, or school groups? No [facility] Are you now , , , , never or living with a partner? [facility] How often to you hav e a drink containing alcohol? Monthly or less [facility] How many standard dr inks containing alcohol do you have on a typical day? 1 or 2 [facility] How often do you hav e 6 or more drinks on 1 occasion? Never [facility] How hard is it for y ou to pay for the very basics like food, housing, medical care, and heating Not hard at all [facility] Do you feel stress - tense, restless, nervous, or anxious, or unable to sleep at night because your mind is troubled all the time - these days [OSQ] Not at all [facility] (I/We) worried velvet er (my/our) food would run out before (I/we) got money to buy more. Never true [facility] Start: 08-26-2020 Gender identity Identifies as male gender (finding) [facility] Start: 08-26-2020 Sexual orientation Heterosexual (finding) [facility] Sex Assigned At [facility] Are you now , , , , never or living with a partner? [facility] How often to you hav e a drink containing alcohol? 2-4 times a month [facility] Goals Date Patient Goal Desired Activity /State Functional Status Date Assessment Result Facility 09-06-2024 Functional status [facility] Work Phone: 07-26-2024 Total score [AUDIT-C] 1 07/27/19 6:26 PM EDT User, [email or web address] [facility] 07-26-2024 Within the last year , have you been humiliated or emotionally abused in other ways by your partner or ex-partner? No 07/26/2024 6:26 PM EDT User, [email or web address] No [facility] 07-26-2024 Within the last year , have you been afraid of your partner or ex-partner? No 07/26/2024 6:26 PM EDT [email or web address] 07-26-2024 Within the last year , have you been raped or forced to have any kind of sexual activity by your partner or ex-partner? No 07/26/2024 6:26 PM EDT User, [email or web address] No [facility] 07-26-2024 Within the last year , have you been kicked, hit, slapped, or otherwise physically hurt by your partner or ex-partner? No 07/26/2024 6:26 PM EDT User, [email or web address] No [facility] 07-26-2024 How often to you hav e a drink containing alcohol? Monthly or less 07/26/2024 6:26 PM EDT User, [email or web address] Monthly or less [facility] 07-26-[address] inks containing alcohol do you have on a typical day? 1 or 2 07/26/2024 6:26 PM EDT User, Mychart 1 or 2 [facility] 07-26-2024 How often do you hav e 6 or more drinks on 1 occasion? Never 07/26/2024 6:26 PM EDT User, [email or web address] Never [facility] 11-17-2022 Functional Status Up ad tara Samira Ho glenna [facility] 11-17-2022 Functional Status Identified as high risk, Fall ID band on, Room located near nursing station [facility] 12-22-2021 Functional status Ambulates;Chair [facility] Work Phone: 07-02-2016 Are you deaf, or do you have serious difficulty hearing No 07/02/2016 2:52 PM EDT Anita Zhang, DO No [facility] Work Phone: 07-02-2016 Are you blind, or do you have serious difficulty seeing, even when wearing glasses No 07/02/2016 2:52 PM EDT Anita Zhang, DO No [facility] 07-02-2016 Do you have serious difficulty walking or climbing stairs No 07/02/2016 2:52 PM EDT Anita Zhang, DO No [facility] 07-02-2016 Do you have difficul ty dressing or bathing No 07/02/2016 2:52 PM EDT Anita Zhang, DO No [facility] 07-02-2016 Because of a physica l, mental, or emotional condition, do you have difficulty doing errands alone such as visiting a physician's office or shopping No 07/02/2016 2:52 PM EDT Anita Zhang, DO No [facility] Mental Status Date Assessment Result Facility 09-06-2024 Cognitive function Voice/Name [facility] Work Phone: 09-05-2024 Cognitive function Appropriate;Cooperativ e [facility] Work Phone: 02-10-2023 Cognitive function Level Of Cons ciousness Awake;Alert;Appropriate;Fol lows Commands [facility] Work Phone: 11-17-2022 Mental Status Orientation Oriented x 4 [facility] 11-17-2022 Mental Status [facility] 12-22-2021 Cognitive function Voice/Name [facility] Work Phone: 12-21-2021 Cognitive function Voice/Name [facility] Work Phone: 07-02-2016 Because of a physica l, mental, or emotional condition, do you have serious difficulty concentrating, remembering, or making decisions No 07/02/2016 2:52 PM EDT Anita Zhang, No [facility] Clinical Notes 03-12-2020 to 09-21-2024 Telephone [...] in there for two weeks. Please advise [facility] 09-21-2024 Miscellaneous Notes Formattin g of this note might be different from the original. [facility] Maria Guadalupe states that he has been in there for two weeks. Please advise documented in this encounter [facility] 09-06-2024 Consult note [facility] 09-06-2024 Consult note Note Date/Time September 06, 2024 4:37pm [facility] Medical Records Department [address] [place] [address] Counseling Note - Pharmacy 09/06/24 1143 MR#: [id number] Acct: [id number] Name: ROBY FLORES Rep #:[id number] : 1935 89 From: Isabelle Summers PCP: Dr. Stas Mora MD Status:AD M IN Location: [place] [address] Pharmacy ID Med Reconciliation Pharmacy Service has performed discharge [...] Signature (if applicable): Date CC: ~ Signed [facility] Work Phone: [phone]) [phone] Discharge summary Author Navid Dominguez [facility] Note Date/Time September 06, 2024 11:[address] [place] [address] [facility] Medical Records Department [address] [place] [address] Discharge Summary 09/06/24 1109 MR#: [id number] Acct: [id number] Name: ROBY FLORES Rep #:[id number] : 1935 89 From: Navid Trejo PCP: Dr. Stas Mora MD Status:AD M IN Location: [place] [address] Providers Date of Admission: 09/02/24 Date of [...] The daughter is the healthcare power of disability attorney. #History of dementia: On rivastigmine #Dyslipidemia: [...] (Auto) 66.8, Lymph % (Auto) 16.4 L, Medina % (Auto) 9.1, Eos % (Auto) 6.3 [...] in before D/C Order can be placed): [facility] Facility Charges/Coding Visit Charges Inpatient E&M: 47625 Disch Hosp >30min 09/06/24 1114 <Electronically signed by Navid Dominguez MD> Cosigner Signature (if applicable): CC: Dr. Stas Mora MD; Dr. Navid Dominguez MD~ Signed [facility] Work Phone: [phone]) 686-558806-17-2025 Discharge summary Author Navid Dominguez [facility] Note Date/Time September 06, 2024 11:0 9am [facility] Medical Records Department [address] [place] [address] Transfer to [facility] MR#: [id number] Acct: [id number] Name: ROBY FLORES Rep #:[id number] : 1935 89 From: Navid Trejo PCP: Dr. Stas Mora MD Status:AD M IN Certification of patient admission REQUIRED AT TIME OF ADMISSION. I CERTIFY THAT POST-HOSPITAL F SERVICES ARE REQUIRED TO BE GIVEN ON AN IN-PATIENT BASIS BECAUSE OF THE ABOVE NAMED PATIENT'S NEED FOR USP CARE ON A CONTINUING BASIS FOR THE CONDITION(S) FOR WHICH HE/SHE WAS RECEIVING IN-PATIENT HOSPITAL SERVICES PRIOR TO HIS/HER TRANSFER TO THE COUNTS INCLUDE 234 BEDS AT THE [facility]. 09/06/24 1109<Electronically signed by Navid Dominguez [...] explained to the [facility] # Fever * Patient developed a fever. [...] The daughter is the healthcare power of disability attorney. #History of dementia: On rivastigmine #Dyslipidemia: [...] liberalized regular diet with consistency/texture as per TEAM LEADER/RESEARCH PSYCHOLOGIST. Will continue 120mL ensure plus HP 4 [...] in before D/C Order can be placed): [facility] Facility 09/06/24 1109 <Electronically signed by Navid Dominguez MD> Cosigner Signature (if applicable): CC: Dr. Stas Mora MD; Dr. Kathy Wells MD ~ [facility] Work Phone: [phone]) 102-573606-17-2025 Discharge summary [facility] Medical Records Department [address] [place] [address] Discharge Summary 09/06/24 1109 MR#: [id number] Acct: [id number] Name: ROBY FLORES Radha Rep #:[id number] : 1935 89 From: Navid Trejo PCP: Dr. Stas Mora MD Status:AD M IN Location: [facility] RQ088-1 Providers Date of Admission: 09/02/24 Date of [...] explained to the patient and his [facility] 09/06: INR 2.4. Hold warfarin today and [...] The daughter is the healthcare power of disability attorney. #History of dementia: On rivastigmine #Dyslipidemia: [...] (Auto) 66.8, Lymph % (Auto) 16.4 L, Medina % (Auto) 9.1, Eos % (Auto) 6.3 [...] in before D/C Order can be placed): [facility] Facility Charges/Coding Visit Charges Inpatient E&M: 91385 Disch Hosp >30min 09/06/24 1114 Cosigner Signature (if applicable): CC: Dr. Stas Mora MD; Dr. Navid Dominguez MD~ Signed [facility]06-17-2025 Discharge summary [facility] Medical Records Department [address] [place] [address] Transfer to [facility] MR#: [id number] Acct: [id number] Name: ROBY FLORES Rep #:[id number] : 1935 89 From: Navid Trejo PCP: Dr. Stas Mora MD Status:AD M IN Certification of patient admission REQUIRED AT TIME OF ADMISSION. I CERTIFY THAT POST-HOSPITAL ECF SERVICES ARE REQUIRED TO BE GIVEN ON AN IN-PATIENT BASIS BECAUSE OF THE ABOVE NAMED PATIENT'S NEED FOR USP CARE ON A CONTINUING BASIS FOR THE CONDITION(S) FOR WHICH HE/SHE WAS RECEIVING IN-PATIENT HOSPITAL SERVICES PRIOR TO HIS/HER TRANSFER TO THE ECF. 09/06/24 1109 Diet Diet Order/Speech Therapy: INPATIENT [...] explained to the patient and his [facility] # Fever * Patient developed a fever. [...] The daughter is the healthcare power of disability attorney. #History of dementia: On rivastigmine #Dyslipidemia: [...] liberalized regular diet with consistency/texture as per TEAM LEADER/RESEARCH PSYCHOLOGIST. Will continue 120mL ensure plus HP 4 [...] in before D/C Order can be placed): [facility] Facility 09/06/24 1109 Cosigner Signature (if applicable): CC: Dr. Stas Mora MD; Dr. Kathy Wells MD ~ [facility]06-17-2025 [facility] Medical Records Department [address] [place] [address] Discharge Summary 09/06/24 110 MR#: [id number] Acct: [id number] Name: ROBY FLORES Rep #: [id number] : 1935 89 From: Navid Dominguez MD PCP: Dr. Stas Mora MD Status:ADM IN Location: [place] [address] Providers Date of Admission: 09/02/24 Date of [...] The daughter is the healthcare power of disability attorney. #History of dementia: On rivastigmine #Dyslipidemia: [...] / Lab / Microbiol (more content not included)...[facility] 09-05-2024 Progress note Author Navid Dominguez [facility] Note Date/Time September 05, 2024 4:15 pm [facility] Medical Records Department [address] [place] [address] Progress Note - Hospitalist 09/05/24 1608 MR#: [id number] Acct: [id number] Name: ROBY FLORES Rep #:[id number] : 1935 89 From: Navid Trejo PCP: Dr. Stas Mora MD Status:AD M IN Location: [place] OB462-2 Reason for Visit Reason for Visit: Diagnoses [...] Clarity Clear, Urine pH 7.0, Ur Specific Canyon 1.005, Urine Protein 15 H, Urine Glucose [...] 77.2 H, Lymph % (Auto) 9.8 L, Medina % (Auto) 7.9, Eos % (Auto) 4.0, [...] The daughter is the healthcare power of disability attorney. #History of dementia: On rivastigmine #Dyslipidemia: On statin #Benign essential hypertension: On lisinopril. DVT prophylaxis: * Resume Coumadin today. INR 1.8. Daughter still thinking about that she wants him to continue otherwise. Code status: DNRCCA no intubation * Disposition: Awaiting placement. PT OT on board. Charges/Coding Visit Charges Inpatient E&M: 83497 Subs Hosp L2 09/05/24 1615 <Electronically signed by Navid Dominguez MD> Cosigner Signature (if applicable): CC: ~ Signed [facility] Work Phone: [phone]) 341-116606-16-2025 Progress note [facility] Medical Records Department [address] [place] [address] Progress Note - Hospitalist 09/05/24 1608 MR#: [id number] Acct: [id number] Name: ROBY FLORES Rep #:[id number] : 1935 89 From: Navid Trejo PCP: Dr. Stas Mora MD Status:AD M IN Location: [facility] FZ536-0 Reason for Visit Reason for Visit: Diagnoses [...] Clarity Clear, Urine pH 7.0, Ur Specific [place] 1.005, Urine Protein 15 H, Urine Glucose [...] 77.2 H, Lymph % (Auto) 9.8 L, Medina % (Auto) 7.9, Eos % (Auto) 4.0, [...] explained to the patient and his [facility] # Fever * Patient developed a fever. [...] The daughter is the healthcare power of disability attorney. #History of dementia: On rivastigmine #Dyslipidemia: On statin #Benign essential hypertension: On lisinopril. DVT prophylaxis: * Resume Coumadin today. INR 1.8. Daughter still thinking about that she wants him to continue otherwise. Code status: DNRCCA no intubation * Disposition: Awaiting placement. PT OT on board. Charges/Coding Visit Charges Inpatient E&M: 91933 [facility] Hosp L2 09/05/24 1615 Cosigner Signature (if applicable): CC: ~ Signed [facility]06-15-2025 Progress note Author Kathy Wells [facility] Note Date/Time September 04, 2024 3:37 pm [facility] Medical Records Department [address] [place] [address] Progress Note 09/04/24 1412 MR#: [id number] Acct: [id number] Name: ROBY FLORES Radha Rep #:[id number] : 1935 89 From: Kathy Wells MD PCP: Dr. Stas Mora MD Status:AD M IN Location: [place] ZO952-2 Subjective Subjective Patient seen and examined. He [...] 78.0 H, Lymph % (Auto) 7.8 L, Medina % (Auto) 7.7, Eos % (Auto) 5.3 [...] The daughter is the healthcare power of disability attorney. * In light of patient's confusion [...] on board. Charges/Coding Visit Charges Inpatient E&M: 16526 Subs Hosp L2 09/04/24 9952 <Electronically signed by Kathy Wells MD> Kathy Wells MD Cosigner Signature (if applicable): CC: ~ Signed [facility] Work Phone: [phone]) 285-751806-15-2025 Progress note [facility] Medical Records Department [address] [place] [address] Progress Note 09/04/24 1412 MR#: [id number] Acct: [id number] Name: ROBY FLORES Rep #:[id number] : 1935 89 From: Kathy Wells MD PCP: Dr. Stas Mora MD Status:AD M IN Location: [place] YO895-7 Subjective Subjective Patient seen and examined. He [...] 78.0 H, Lymph % (Auto) 7.8 L, Medina % (Auto) 7.7, Eos % (Auto) 5.3 [...] The daughter is the healthcare power of disability attorney. * In light of patient's confusion [...] on board. Charges/Coding Visit Charges Inpatient E&M: 82622 Subs Hosp L2 09/04/24 1537 Kathy Wells MD Cosigner Signature (if applicable): CC: ~ Signed [facility]06-14-2025 Progress note Author Kathy Wells [facility] Note Date/Time September 03, 2024 6:29 pm [facility] Medical Records Department [address] [place] [address] Progress Note 09/03/24 1135 MR#: [id number] Acct: [id number] Name: ROBY FLORES Rep #:[id number] : 1935 89 From: Kathy Wells MD PCP: Dr. Stsa Mora MD Status:AD M IN Location: [place] [address] Subjective Subjective Patient seen and examined. He [...] 09/03/24 08:13 09/03/24 08:13 09/03/24 08:25 09/03/24 08:09/02/24 15:02 Oxygen Flow Rate [...] 83.4 H, Lymph % (Auto) 6.7 L, Medina % (Auto) 6.0, Eos % (Auto) 2.8, [...] The daughter is the healthcare power of disability attorney. * In light of patient's confusion [...] on board. Charges/Coding Visit Charges Inpatient E&M: 09729 Subs Hosp L2 09/03/249 <Electronically signed by Kathy Wells MD> Kathy Wells MD Cosigner Signature (if applicable): CC: ~ Signed [facility] Work Phone: [phone]) 535-606706-14-2025 Progress note [facility] Medical Records Department [address] [place] [address] Progress Note 09/03/24 1135 MR#: [id number] Acct: [id number] Name: ROBY FLORES Rep #:[id number] : 1935 89 From: Kathy Wells MD PCP: Dr. Stas Mora MD Status:AD M IN Location: [place] BC725-8 Subjective Subjective Patient seen and examined. He was alert and communicative. He had no active complaints. He has remained hemodynamically stable. Review of systems otherwise negative. Objective Data Objective Data Vital Signs: Vital Signs Temp Pulse Resp BP Pulse Ox O2 Del Method O2 Flow Rate 98.2 F 96 22 H 154/104 H 94 Room Air 2 09/03/24 08:13 09/03/24 08:09/03/24 08:09/03/24 08:09/03/24 08:09/03/24 08:09/02/24 15:02 Oxygen Flow [...] 83.4 H, Lymph % (Auto) 6.7 L, Medina % (Auto) 6.0, Eos % (Auto) 2.8, [...] The daughter is the healthcare power of disability attorney. * In light of patient's confusion [...] on board. Charges/Coding Visit Charges Inpatient E&M: 47867 Subs Hosp L2 09/03/24 5966 Kathy Wells MD Cosigner Signature (if applicable): CC: ~ Signed [facility]06-14-2025 Consult note Author Spike De La Cruz [facility] Note Date/Time September 03, 2024 3:49 pm [facility] Medical Records Department [address] [place] [address] Pharmacokinetic/Renal -Consult 09/03/24 1548 MR#: [id number] Acct: [id number] Name: ROBY FLORES Rep #:[id number] : 1935 89 From: Spike Maynard [facility] PCP: Dr. Stas Mora MD Status:AD M IN Location: [facility] VE156-5 Consult Antibiotic Management Pharmacy has been consulted [...] Labs: Trough: Vancomycin (09/04/24 at 2130) 09/03/24 5259 <Electronically signed by Spike Angelo [facility]> Date _ Spike De La Cruz [facility] Cosigner Signature (if applicable): Date CC: ~ Signed [facility] Work Phone: [phone] 497-596506-14-2025 Consult note [facility] Medical Records Department [address] [place] [address] Pharmacokinetic/Renal -Consult 09/03/24 1548 MR#: [id number] Acct: [id number] Name: ROBY FLORES Rep #:[id number] : 1935 89 From: Spike Maynard [facility] PCP: Dr. Stas Mora MD Status:AD M IN Location: [facility] IN325-4 Consult Antibiotic Management Pharmacy has been consulted [...] Trough: Vancomycin (09/04/24 at 2130) 09/03/[address] [facility]> Date _ Spike De La Cruz [facility] Cosigner Signature (if applicable): Date CC: ~ Signed [facility]06-13-2025 Progress note Author Kathy [facility] Note Date/Time September 02, 2024 6:45 pm [facility] Medical Records Department [address] [place] [address] Progress Note 09/02/24 1404 MR#: [id number] Acct: [id number] Name: ROBY FLORES Rep #:[id number] : 1935 89 From: Kathy Wells MD PCP: Dr. Stas Mora MD Status:AD M IN Location: [place] CA989-6 Subjective Subjective Patient seen and examined. He [...] (Auto) 87.9 H, Lymph %(Auto) 3.8 L, [place] % (Auto) 4.8, Eos % (Auto) 2.2, [...] The daughter is the healthcare power of disability attorney. * In light of patient's confusion [...] intubation * Charges/Coding Visit Charges Inpatient E&M: 91477 Subs Hosp L2 09/02/24 1841 <Electronically signed by Kathy Wells MD> Kathy Wells MD Cosigner Signature (if applicable): CC: ~ Signed [facility] Work Phone: [phone] 266-975506-13-2025 Progress note [facility] Medical Records Department [address] [place] [address] Progress Note 09/02/24 1404 MR#: [id number] Acct: [id number] Name: ROBY FLORES Rep #:[id number] : 1935 89 From: Kathy Wells MD PCP: Dr. Stas Mora MD Status:AD M IN Location: [place] AO384-5 Subjective Subjective Patient seen and examined. He [...] (Auto) 87.9 H, Lymph %(Auto) 3.8 L, [place] % (Auto) 4.8, Eos % (Auto) 2.2, [...] The daughter is the healthcare power of disability attorney. * In light of patient's confusion [...] intubation * Charges/Coding Visit Charges Inpatient E&M: 09336 Subs Hosp L2 09/02/24 2118 Kathy Wells MD Cosigner Signature (if applicable): CC: ~ Signed [facility]06-13-2025 Evaluation note* Diagnosis Onset Date Resolution Status Admit Date Adult failure to thrive acute [facility] 2024 12:49pm Chronic anticoagulation acute [facility] 2024 12:49pm Contusion of hip acute August 12:49pm Fall acute September 02 12:49pm History of atrial fibrillation acute September 02, 2024 12:49pm History of dementia acute September 02, 2024 12:49pm History of TIAs acute August 12:49pm Unable to ambulate acute August 212024 12:49pm [facility] Work Phone: [phone] 504-330806-13-2025 Evaluation note* Diagnosis Onset Date Resolution Status Admit Date Chronic anticoagulation acute [facility] 2024 12:49pm Contusion of hip acute August 12:49pm Fall acute September 02 12:49pm History of atrial fibrillation acute September 02, 2024 12:49pm History of TIAs acute August 12:49pm Unable to ambulate acute August 212024 12:49pm Adult failure to thrive inactive J 2024 12:49pm History of dementia inactive September 02, 2024 12:49pm [facility] [employer] [employer] Work Phone: 1([phone] 949-276206-12-2025 Consult note Author Zachary Lubin [facility] Note Date/Time September 01, 2024 9:15 pm [facility] Medical Records Department [address] [place] [address] Pharmacokinetic/Renal -Consult 09/01/242113 MR#: [id number] Acct: [id number] Name: ROBY FLORES Rep #:[id number] : 1935 89 From: Zachary Serrano od PCP: Dr. Stas Mora MD Status:AD M GER[place] Y Location: [place] [address] Consult Antibiotic Management Pharmacy has been consulted [...] (if applicable): Date _ CC: ~ Signed [facility] Work Phone: [phone] 221-917606-12-2025 Progress note Author Marta Black [facility] Note Date/Time September 01, 2024 7:55 pm [facility] Medical Records Department [address] [place] [address] Progress Note - Hospitalist 09/01/241952 MR#: [id number] Acct: [id number] Name: ROBY FLORES Rep #:[id number] : 1935 89 From: Marta Black DO PCP: Dr. Stas Mora MD Status:AD M [facility] Location: [place] [address] Hospitalist Note Called regarding Mr. Flores having [...] Cosigner Signature (if applicable): CC: ~ Signed [facility] Work Phone: [phone] 701-211406-12-2025 Consult note [facility] Medical Records Department [address] [place] [address] Pharmacokinetic/Renal -Consult 09/01/242113 MR#: [id number] Acct: [id number] Name: ROBY FLORES Rep #:[id number] : 1935 89 From: Zachary Serrano od PCP: Dr. Stas Mora MD Status:ELIAS Saab Location: [place] [address] Consult Antibiotic Management Pharmacy has been consulted [...] [date and time ordered]: 09/03 @ 0830 09/01/24 2115 lood> Date _ Zachary Juárezigner Signature (if applicable): Date _ CC: ~ Signed [facility]06-12-2025 History and physical note Author Kathy [facility] Note Date/Time September 01, 2024 6:04 pm [facility] Medical Records Department [address] [place] [address] H&P Exam - Hospitalist 09/01/24 1018 MR#: [id number] Acct: [id number] Name: ROBY FLORES Rep #:[id number] : 1935 89 From: Kathy Wells MD PCP: Dr. Stas Mora MD Status:AD M [facility] Location: [facility] PZ238-7 HPI - General General Date of Admission: [...] did not hit his head. As far lavonne knew he had not had any lightheadedness or dizziness, palpitations, nausea vomiting or any other such symptoms. Vitals in the ED were BP of 180/89, IL of 87, RR of 18 and temp [...] weakness due to mechanical fall. [facility] Medical History Chronic anticoagulation TIA (transient ischemic [...] 87.5 H, Lymph % (Auto) 4.8 L, [place] % (Auto) 5.7, Eos % (Auto) 1.2, [...] Clarity Clear, Urine pH 8.0, Ur Specific [place] 1.010, Urine Protein 15 H, Urine Glucose [...] or dislocation present. Reading Location: [facility] 09/01/24 09:05 IMPRESSION: Cerebral atrophy. Mucosal thickening of the ethmoid sinuses as well as opacification of the left maxillary sinus. Reading Location: [facility] Chest X-Ray 09/01/24 09:25 IMPRESSION: No acute abnormality is seen. Reading Location: [facility] Assessment & Plan Assessment/Plan (1) Adult failure [...] The daughter is the healthcare power of disability attorney. * In light of patient's confusion [...] be DNR CCA no intubation. * Total nqpy-rv-mlxy time 16 minutes. Charges/Coding Visit Charges Inpatient E&M: 44188 Init Hosp L3 Procedures Hospitalists Procedures: 89869 Advncd Care Plan 30 Min 09/01/24 1804 <Electronically signed by Kathy Wells MD> Cosigner Signature (if applicable): CC: Dr. Stas Mora MD; Dr. Kathy Wells MD~ Signed [facility] Work Phone: 1(681) 385-853906-12-2025 Progress note [facility] Medical Records Department [address] [place] [address] Progress Note - Hospitalist 09/01/241952 MR#: [id number] Acct: [id number] Name: ROBY FLORES E Rep #:[id number] : 1935 89 From: Marta Black DO PCP: Dr. Stas Mora MD Status:AD M [facility] Location: [place] [address] Hospitalist Note Called regarding Mr. Flores having [...] Cosigner Signature (if applicable): CC: ~ Signed [facility] [place]06-12-2025 History and physical note [facility] Medical Records Department [address] [place] [address] H&P Exam - Hospitalist 09/01/24 1018 MR#: [id number] Acct: [id number] Name: ROBY FLORES Rep #:[id number] : 1935 89 From: Kathy Wells MD PCP: Dr. Stas Mora MD Status:AD M GERMAN Location: MS3 MN094-2 HPI - General General Date of Admission: [...] in the ED were BP of 180/89, IL of 87, RR of 18 and temp [...] weakness due to mechanical fall. [facility] Medical History Chronic anticoagulation TIA (transient ischemic [...] 87.5 H, Lymph % (Auto) 4.8 L, Medina % (Auto) 5.7, Eos % (Auto) 1.2, [...] Clarity Clear, Urine pH 8.0, Ur Specific Canyon 1.010, Urine Protein 15 H, Urine Glucose [...] or dislocation present. Reading Location: [facility]--[address] 09/01/24 09:05 IMPRESSION: Cerebral atrophy. Mucosal thickening of the ethmoid sinuses as well as opacification of the left maxillary sinus. Reading Location: [facility]--1 Chest X-Ray 09/01/24 09:25 IMPRESSION: No acute abnormality is seen. Reading Location: [facility]--1 Assessment & Plan Assessment/Plan (1) Adult failure [...] The daughter is the healthcare power of disability attorney. * In light of patient's confusion [...] be DNR CCA no intubation. * Total sndc-ce-gsii time 16 minutes. Charges/Coding Visit Charges Inpatient E&M: 90093 Init Hosp L3 Procedures Hospitalists Procedures: 14240 Advncd Care Plan 30 Min 09/01/24 1804 Cosigner Signature (if applicable): CC: Dr. Stas Mora MD; Dr. Kathy Wells MD~ Signed [facility] [place]06-12-2025 Telephone encounter Note* Telephone Encounter - Haydee Oliveros LPN - 09/01/2024 2:49 PM EDT XOS Digital message sent [facility]06-12-2025 Miscellaneous Notes* Telephone Encounter - Haydee [...] affordable alvarado using Good Rx coupons. At [facility] (his current pharmacy), he can get a 1 mo supply for ~$30. If he switches the prescription to [facility], he can get a 1 mo supply for ~$20. See coupons below. Rivastigmine patches are also available via GoodRx. It appears the cheapest option is through [facility], in which he can get 30 patches for $52. Coupon also below. Sending to PCP to review and provide patient with coupon card information. Russell Aguayo PharmD, [facility] Primary Care Clinical Pharmacist Memantine coupon at [facility] Memantine coupon at [facility] Rivastigmine patches coupon at [facility] documented in this encounterTrihealth [facility]06-12-[facility] Telephone encounter Note * Telephone Encounter - Luciana Cisneros MD - 09/01/2024 1:26 PM EDT Thanks Russell, Staff please let patient know what the pharmacist as opined on. RegardsLuciana MD [facility]06-12-2025 Discharge summary Author Inderjit Gillespie [facility] Note Date/Time September 01, 2024 10:2 5am [facility] Medical Records Department [address] [place] [address] Emergency Department Summary 09/01/24 MR#: [id number] Acct: [id number] Name: ROBY FLORES Rep #:[id number] : [...] shoulders elbows and wrist. 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 Neurologically he is awake alert. Answering [...] 87.5 H Lymph % (Auto) 4.8 L Medina % (Auto) 5.7 Eos % (Auto) 1.2 [...] Clarity Clear Urine pH 8.0 Ur Specific Canyon 1.010 Urine Protein 15 H Urine Glucose [...] or dislocation present. Reading Location: [facility]--[address] 09/01/24 09:05 IMPRESSION: Cerebral atrophy. Mucosal thickening of the ethmoid sinuses as well as opacification of the left maxillary sinus. Reading Location: [facility]--1 Chest X-Ray 09/01/24 09:25 IMPRESSION: No acute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 Anticoagulation Episode Summary Anticoagulation Care Providers Provider Role Specialty Phone number Stas Mora MD Referring Family Medicine [phone] Roby Flores is a 88 year old [...] ALLERGIES No Known Allergies Indication for Warfarin: 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 Paroxysmal atrial fibrillation [...] Pharmacy Anticoagulation Clinic Pharmacy Anticoagulation Clinic Pager: [phone]. [facility]06-12-2024 Miscellaneous Notes* Telephone Encounter - Coretta Jalloh RPh - 09/02/2023 3:08 PM EDT [facility] Ambulatory Pharmacy Anticoagulation Clinic Anticoagulation Episode Summary Anticoagulation Care Providers Provider Role Specialty Phone number Stas Mora MD Referring Family Medicine [phone] Roby Flores is a 88 year old [...] ALLERGIES No Known Allergies Indication for Warfarin: 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 Paroxysmal atrial fibrillation [...] Pharmacy Anticoagulation Clinic Pharmacy Anticoagulation Clinic Pager: [phone]. documented in this encounterTrihealth Bethes[facility]06-05-2024 Telephone encounter Note * Telephone Encounter - Coretta Jalloh RPh - 08/26/2023 5:03 PM EDT [facility] Ambulatory Pharmacy Anticoagulation Clinic Anticoagulation Episode Summary Anticoagulation Care Providers Provider Role Specialty Phone number Stas Mora MD Referring Family Medicine [phone] Roby Flores is a 88 year old [...] ALLERGIES No Known Allergies Indication for Warfarin: [facility]FP current use of anticoagulant Paroxysmal atrial fibrillation [...] Pharmacy Anticoagulation Clinic Pharmacy Anticoagulation Clinic Pager: [phone]. [facility]06-05-2024 Miscellaneous Notes* Telephone Encounter - Coretta Jalloh RPh - 08/26/2023 5:03 PM EDT [facility] Ambulatory Pharmacy Anticoagulation Clinic Anticoagulation Episode Summary Anticoagulation Care Providers Provider Role Specialty Phone number Stas Mora MD Referring Family Medicine [phone] Roby Flores is a 88 year old [...] ALLERGIES No Known Allergies Indication for Warfarin: 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 Paroxysmal atrial fibrillation [...] Pharmacy Anticoagulation Clinic Pharmacy Anticoagulation Clinic Pager: [phone]. documented in this encounterTrihealth Bethes[facility]05-29-2024 Telephone encounter Note * Telephone Encounter - Coretta Jalloh RPh - 08/19/2023 5:09 PM EDT [facility] Ambulatory Pharmacy Anticoagulation Clinic Anticoagulation Episode Summary Anticoagulation Care Providers Provider Role Specialty Phone number Stas Mora MD Referring Family Medicine [phone] Roby Flores is a 88 year old [...] Pharmacy Anticoagulation Clinic Pharmacy Anticoagulation Clinic Pager: [phone]. [facility]05-29-2024 Miscellaneous Notes* Telephone Encounter - Coretta Jalloh RPh - 08/19/2023 5:09 PM EDT [facility] Ambulatory Pharmacy Anticoagulation Clinic Anticoagulation Episode Summary Anticoagulation Care Providers Provider Role Specialty Phone number Stas Mora MD Referring Family Medicine [phone] Roby Flores is a 88 year old [...] Pharmacy Anticoagulation Clinic Pharmacy Anticoagulation Clinic Pager: [phone]. documented in this encounterTrihealth Bethes[facility]05-24-2024 History of Present illness Narrative* Stas [...] thinks he is being sued by a jewish and thathe was given a letter about it, doesn't know who the couture alterations dressmaker is or where the jewish is. states this is not true. He was looking for his brother who lives out of state, thought he was still staying with them, however he has not been up to [place] since Jan. No hallucinations. Is not leaving [...] Coronary atherosclerosis of unspecified type of vessel, chuloonawick or graft Coronary artery disease Other and [...] Past Histories independently gathered by the clinical business support assistant and the remaining scribed note accurately describes [...] AM. Marta Palacio MA documented in this encounterTrihealth Bethes[facility]05-22-2024 Telephone encounter Note * Telephone Encounter - Yeimi Coretta [facility] - 08/12/2023 4:27 PM EDT [facility] Ambulatory Pharmacy Anticoagulation Clinic Anticoagulation Episode Summary Anticoagulation Care Providers Provider Role Specialty Phone number Stas Mora MD Referring Family Medicine [phone] Roby Flores is a 87 year old [...] ALLERGIES No Known Allergies Indication for Warfarin: 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 Paroxysmal atrial fibrillation [...] Pharmacy Anticoagulation Clinic Pharmacy Anticoagulation Clinic Pager: [phone]. [facility]05-22-2024 Miscellaneous Notes* Telephone Encounter - Coretta Jalloh RPh - 08/12/2023 4:27 PM EDT [facility] Ambulatory Pharmacy Anticoagulation Clinic Anticoagulation Episode Summary Anticoagulation Care Providers Provider Role Specialty Phone number Stas Mora MD Referring Family Medicine [phone] Roby Flores is a 87 year old [...] ALLERGIES No Known Allergies Indication for Warfarin: 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 Paroxysmal atrial fibrillation [...] Pharmacy Anticoagulation Clinic Pharmacy Anticoagulation Clinic Pager: [phone]. documented in this encounterTrihealth Bethes[facility]05-15-2024 Telephone encounter Note * Telephone Encounter - Coretta Jalloh RPh - 08/05/2023 4:41 PM EDT [facility] Ambulatory Pharmacy Anticoagulation Clinic Anticoagulation Episode Summary Anticoagulation Care Providers Provider Role Specialty Phone number Stas Mora MD Referring Family Medicine [phone] Roby Flores is a 87 year old [...] ALLERGIES No Known Allergies Indication for Warfarin: 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 Paroxysmal atrial fibrillation [...] Pharmacy Anticoagulation Clinic Pharmacy Anticoagulation Clinic Pager: [phone]. [facility]05-15-2024 Miscellaneous Notes* Telephone Encounter - Coretta Jalloh, [facility] - 08/05/2023 4:41 PM EDT [facility] Ambulatory Pharmacy Anticoagulation Clinic Anticoagulation Episode Summary Anticoagulation Care Providers Provider Role Specialty Phone number Stas Mora MD Referring Family Medicine [phone] Roby Flores is a 87 year old [...] ALLERGIES No Known Allergies Indication for Warfarin: 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 Paroxysmal atrial fibrillation [...] Pharmacy Anticoagulation Clinic Pharmacy Anticoagulation Clinic Pager: [phone]. documented in this encounterTrihealth Bethes[facility]05-08-2024 Telephone encounter Note * Telephone Encounter - Elena Lopez RPh - 07/29/2023 3:21 PM EDT [facility] Ambulatory Pharmacy Anticoagulation Clinic Anticoagulation Episode Summary Anticoagulation Care Providers Provider Role Specialty Phone number Stas Mora MD Referring Family Medicine [phone] Roby Flores is a 87 year old [...] ALLERGIES No Known Allergies Indication for Warfarin: 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 Paroxysmal atrial fibrillation [...] Pharmacy Anticoagulation Clinic Pharmacy Anticoagulation Clinic Pager: [phone]. [facility]05-08-2024 Miscellaneous Notes* Telephone Encounter - Elena Lopez RPh - 07/29/2023 3:21 PM EDT [facility] Ambulatory Pharmacy Anticoagulation Clinic Anticoagulation Episode Summary Anticoagulation Care Providers Provider Role Specialty Phone number Stas Mora MD Referring Family Medicine [phone] Roby Flores is a 87 year old [...] ALLERGIES No Known Allergies Indication for Warfarin: 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 Paroxysmal atrial fibrillation [...] Pharmacy Anticoagulation Clinic Pharmacy Anticoagulation Clinic Pager: [phone]. documented in this encounterTrihealth Bethes[facility]05-01-2024 Telephone encounter Note * Telephone Encounter - Coretta Jalloh RPh - 07/22/2023 4:40 PM EDT [facility] Ambulatory Pharmacy Anticoagulation Clinic Anticoagulation Episode Summary Anticoagulation Care Providers Provider Role Specialty Phone number Stas Mora MD Referring Family Medicine [phone] Roby Flores is a 87 year old [...] ALLERGIES No Known Allergies Indication for Warfarin: MCFP current use of anticoagulant Paroxysmal atrial fibrillation [...] Patient denies need for refills. Coretta Jalloh [facility] Clinical Pharmacist, Pharmacy Anticoagulation Clinic Pharmacy Anticoagulation Clinic Pager: [phone]. [facility]05-01-2024 Miscellaneous Notes* Telephone Encounter - Coretta Jalloh RPh - 07/22/2023 4:40 PM EDT [facility] Ambulatory Pharmacy Anticoagulation Clinic Anticoagulation Episode Summary Anticoagulation Care Providers Provider Role Specialty Phone number Stas Mora MD Referring Family Medicine [phone] Roby Flores is a 87 year old [...] ALLERGIES No Known Allergies Indication for Warfarin: 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 Paroxysmal atrial fibrillation [...] Pharmacy Anticoagulation Clinic Pharmacy Anticoagulation Clinic Pager: [phone]. documented in this encounterTrihealth Bethes[facility]04-24-2024 Telephone encounter Note * Telephone Encounter - Coretta Jalloh RPh - 07/15/2023 3:18 PM EDT [facility] Ambulatory Pharmacy Anticoagulation Clinic Anticoagulation Episode Summary Anticoagulation Care Providers Provider Role Specialty Phone number Stas Mora MD Referring Family Medicine [phone] Roby Flores is a 87 year old [...] ALLERGIES No Known Allergies Indication for Warfarin: MCFP current use of anticoagulant Paroxysmal atrial fibrillation [...] Pharmacy Anticoagulation Clinic Pharmacy Anticoagulation Clinic Pager: [phone]. [facility]04-24-2024 Miscellaneous Notes* Telephone Encounter - Coretta Jalloh RPh - 07/15/2023 3:18 PM EDT [facility] Ambulatory Pharmacy Anticoagulation Clinic Anticoagulation Episode Summary Anticoagulation Care Providers Provider Role Specialty Phone number Stas Mora MD Referring Family Medicine [phone] Roby Flores is a 87 year old [...] ALLERGIES No Known Allergies Indication for Warfarin: MCFP current use of anticoagulant Paroxysmal atrial fibrillation [...] Pharmacy Anticoagulation Clinic Pharmacy Anticoagulation Clinic Pager: [phone]. documented in this encounterTrihealth Bethes[facility]04-17-2024 Miscellaneous Notes* Telephone Encounter - Coretta Jalloh RPh - 07/08/2023 4:36 PM EDT [facility] Ambulatory Pharmacy Anticoagulation Clinic Anticoagulation Episode Summary Anticoagulation Care Providers Provider Role Specialty Phone number Stas Mora MD Referring Family Medicine [phone] Roby Flores is a 87 year old [...] ALLERGIES No Known Allergies Indication for Warfarin: 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 Paroxysmal atrial fibrillation [...] Pharmacy Anticoagulation Clinic Pharmacy Anticoagulation Clinic Pager: [phone]. documented in this encounterTrihealth Bethes[facility]04-10-2024 Miscellaneous Notes* Telephone Encounter - Coretta Jalloh RPh - 07/01/2023 5:20 PM EDT [facility] Ambulatory Pharmacy Anticoagulation Clinic Anticoagulation Episode Summary Anticoagulation Care Providers Provider Role Specialty Phone number Stas Mora MD Referring Family Medicine [phone] Roby Flores is a 87 year old [...] ALLERGIES No Known Allergies Indication for Warfarin: 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 Paroxysmal atrial fibrillation [...] INR check scheduled on 07/08/2023 Coretta Jalloh [facility] Clinical Pharmacist, Pharmacy Anticoagulation Clinic Pharmacy Anticoagulation Clinic Pager: [phone]. documented in this encounterTrihealth Bethes[facility]04-04-2024 Telephone encounter Note * Telephone Encounter - Adrian (Forensic Economist)Elana - 06/25/2023 5:14 PM EDT Images from [...] remains on Remote TM list. Elana Campbell (Netviewer) [facility]04-04-2024 Miscellaneous Notes* Telephone Encounter - Adrian HuangForensic Economist)Elana - 06/25/2023 5:14 PM EDT Images from [...] remains on Remote TM list. Elana Campbell (Netviewer) * Telephone Encounter - Stas Mora MD - 06/25/2023 4:44 PM EDT It looks like my office became involved because the on-call doctor was called with his elevated INR. I would prefer he stay with the pharmacy for his routine monitoring. Stas Mora MD * Telephone Encounter - Adrian (Netviewer)Elana - 06/25/2023 4:03 PM EDT Pharm Phone [...] this time Please advise. Elana Campbell CPhT (Managing Member) Pharmacy Anticoagulation Clinic documented in this encounterTrihealth Bethes[facility]04-04-2024 Telephone encounter Note * Telephone Encounter - Stas Mora MD - 06/25/2023 4:44 PM EDT It looks like my office became involved because the on-call doctor was called with his elevated INR. I would prefer he stay with the pharmacy for his routine monitoring. Stas Mora MD [facility]04-04-2024 Telephone encounter Note* Telephone Encounter - Adrian (Forensic Economist)Elana - 06/25/2023 4:03 PM EDT Pharm Phone [...] this time Please advise. Elana Campbell CPhT (Managing Member) Pharmacy Anticoagulation Clinic [facility]04-03-2024 Miscellaneous Notes* Telephone Encounter - Jason [...] 1 week. * Telephone Encounter - Keke sTang MA - 06/24/2023 4:10 PM EDT INR Date Value Ref Range Status 06/24/2023 1.3 0.9 - 1.3 Final Comment: Vitamin K Antagonist (VKA) Therapeutic Range: INR 2 to 3 (Target INR of 2.5) Note: For patients treated with VKA drugs, such as warfarin, the [employer] 2012 Guideline recommends [...] Chest 2012, 141:7S-47S Avel RA, et al. [facility] 2017, 70: 252-289 Confirmed that pt is taking 1 mg daily. No changes to diet, medications, missed or extra doses, etc. Keke Tsang MA documented in this encounterTrihealth Bethes[facility]03-22-2024 Miscellaneous Notes* Telephone Encounter - Marta [...] no Rosie Cruz Ma documented in this encounterTrihealth Bethes[facility]03-18-2024 Miscellaneous Notes* Telephone Encounter - Keke [...] Information or narrative: no documented in this encounterTrihealth Bethes[facility]03-15-2024 Miscellaneous Notes* Telephone Encounter - Halina [...] went over notes below from Jenna Fitzpatrick NP. She said no change in his diet, [...] without answer. INR was 6.9. Jenna Fitzpatrick APRN.CNP documented in this encounterTrihealth Bethes[facility]03-15-2024 Miscellaneous Notes* Telephone Encounter - Marta [...] conference call with me. documented in this encounterTrihealth Bethesda [facility] Hospital03-15-2024 Miscellaneous Notes* Telephone Encounter - Marta [...] message on daughter Anabella's mobile. Sent a MyChart message too. Called [facility] and the will conference call me if patient calls them. documented in this encounterTrihealth Bethesda [facility]03-14-2024 Miscellaneous Notes* Telephone Encounter - Hortencia Winston, RN - 06/04/2023 8:[address] Bell has left messages for the patient to call back regarding a critical lab. documented in this encounterTrihealth Bethesda [facility]03-14-2024 Miscellaneous Notes* Telephone Encounter - Minda [...] you. Jenna Fitzpatrick APRN.SHEMAR documented in this encounterTrihealth Bethesda [facility]03-13-2024 Miscellaneous Notes* Telephone Encounter - Coretta Jalloh RPh - 06/03/2023 3:22 PM EDT [facility] Ambulatory Pharmacy Anticoagulation Clinic Anticoagulation Episode Summary Anticoagulation Care Providers Provider Role Specialty Phone number Stas Mora MD Referring Family Medicine [phone] Roby Flores is a 87 year old [...] ALLERGIES No Known Allergies Indication for Warfarin: MCFP current use of anticoagulant Paroxysmal atrial fibrillation [...] Pharmacy Anticoagulation Clinic Pharmacy Anticoagulation Clinic Pager: [phone]. documented in this encounterTrihealth [facility]03-11-2024 History of Present illness Narrative* Stas [...] Coronary atherosclerosis of unspecified type of vessel, chuloonawick or graft Coronary artery disease Other and [...] unspecified vessel or lesion type, unspecified whether chuloonawick or transplanted heart - ICD9: 414.00, ICD10: [...] Past Histories independently gathered by the clinical business support assistant and the remaining scribed note accurately describes [...] PM. Marta Palacio MA documented in this encounterTrihealth [facility]03-06-2024 Miscellaneous Notes* Telephone Encounter - Coretta Jalloh [facility] - 05/27/2023 2:23 PM EST [facility] Anticoagulation Episode Summary Anticoagulation Care Providers Provider Role Specialty Phone number Stas Mora MD Referring Family Medicine [phone] Robyimelda Flores is a 87 year old year old male patient being evaluated today for a [facility] Anticoagulation Clinic Anticoagulation Episode Summary Anticoagulation Care Providers Provider Role Specialty Phone number Stas Mora MD Referring Family Medicine [phone] Robyimelda Flores is a 87 year old [...] ALLERGIES No Known Allergies Indication for Warfarin: MCFP current use of anticoagulant Paroxysmal atrial fibrillation [...] Pharmacy Anticoagulation Clinic Pharmacy Anticoagulation Clinic Pager: [phone]. documented in this encounterTrihealth [facility]02-28-2024 Miscellaneous Notes* Telephone Encounter - Coretta Jalloh RPh - 05/20/2023 2:36 PM EST [facility] Anticoagulation Episode Summary Anticoagulation Care Providers Provider Role Specialty Phone number Stas Mora MD Referring Family Medicine [phone] Roby Flores is a 87 year old [...] ALLERGIES No Known Allergies Indication for Warfarin: MCFP current use of anticoagulant Paroxysmal atrial fibrillation [...] Pharmacy Anticoagulation Clinic Pharmacy Anticoagulation Clinic Pager: [phone]. documented in this encounterTrihealth [facility]02-21-2024 Miscellaneous Notes* Telephone Encounter - Senia Phillips RPh - 05/13/2023 4:06 PM EST [facility] Anticoagulation Episode Summary Anticoagulation Care Providers Provider Role Specialty Phone number Stas Mora MD Referring Family Medicine [phone] Roby Flores is a 87 year old [...] ALLERGIES No Known Allergies Indication for Warfarin: 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 Paroxysmal atrial fibrillation [...] Pharmacy Anticoagulation Clinic Pharmacy Anticoagulation Clinic Pager: [phone]. documented in this encounterTrihealth [facility]02-14-2024 Miscellaneous Notes* Telephone Encounter - Coretta Jalloh RPh - 05/06/2023 3:14 PM EST [facility] Anticoagulation Episode Summary Anticoagulation Care Providers Provider Role Specialty Phone number Stas Mora MD Referring Family Medicine [phone] Roby Flores is a 87 year old [...] ALLERGIES No Known Allergies Indication for Warfarin: MCFP current use of anticoagulant Paroxysmal atrial fibrillation [...] Pharmacy Anticoagulation Clinic Pharmacy Anticoagulation Clinic Pager: [phone]. documented in this encounterTrihealth [facility]02-07-2024 Miscellaneous Notes* Telephone Encounter - Coretta Jalloh RPh - 04/29/2023 4:00 PM EST [facility] Anticoagulation Episode Summary Anticoagulation Care Providers Provider Role Specialty Phone number Stas Mora MD Referring Family Medicine [phone] Roby Flores is a 87 year old [...] ALLERGIES No Known Allergies Indication for Warfarin: 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 Paroxysmal atrial fibrillation [...] Pharmacy Anticoagulation Clinic Pharmacy Anticoagulation Clinic Pager: [phone]. documented in this encounterTrihealth [facility]12-01-2023 Miscellaneous Notes* Telephone Encounter - Elise Paredes [facility] - 02/20/2023 3:37 PM EST [facility] Anticoagulation Episode Summary Anticoagulation Care Providers Provider Role Specialty Phone number Stas Mora MD Referring Family Medicine [phone] Roby Flores is a 87 year old [...] ALLERGIES No Known Allergies Indication for Warfarin: MCFP current use of anticoagulant Paroxysmal atrial fibrillation [...] Pharmacy Anticoagulation Clinic Pharmacy Anticoagulation Clinic Pager: [phone]. documented in this encounterTrihealth Bethes[facility]11-28-2023 Miscellaneous Notes* Telephone Encounter - Franca [...] evaluation Stas Mora MD documented in this encounterTrihealth Bet[facility]11-28-2023 History of Present illness Narrative* Janelle [...] 17, 2023 7:43 AM documented in this encounterTrihealth [facility]11-27-2023 History of Present illness Narrative* Stas Mora MD - 02/16/2023 2:00 PM EST Chief Complaint Patient presents with: ED Follow-up HPI Roby Flores is a 87 year old male who presents here today for ER Follow Up.. Pt went to the [facility] ER on 02/10/23 with c/o fatigue, [...] Recheck in 1 week. Below copied from [employer]: Chief Complaint: Fatigue Informant: patient Onset/Context/Timing Onset: [...] any urinary complaints. Patient denies any headaches. [facility] Narrative Medical decision making narrative: Differential diagnosis [...] Coronary atherosclerosis of unspecified type of vessel, chuloonawick or graft Coronary artery disease Other and [...] Completed Pneumococcal Vaccine: 65+ Completed Data reviewed [facility] ER reports 02/10/23 ASSESSMENT/PLAN: 1. Cerebral [...] Past Histories independently gathered by the clinical business support assistant and the remaining scribed note accurately describes [...] PM. Marta Palacio Ma documented in this encounterTrihealth Bethes[facility]11-24-2023 Miscellaneous Notes* Telephone Encounter - Elise Paredes, [facility] - 02/13/2023 3:56 PM EST [facility] Anticoagulation Episode Summary Anticoagulation Care Providers Provider Role Specialty Phone number Stas Mora MD Referring Family Medicine [phone] Roby Flores is a 87 year old [...] ALLERGIES No Known Allergies Indication for Warfarin: 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 Paroxysmal atrial fibrillation [...] INR check scheduled on 02/20/2023 Elise Paredes RPh Clinical Pharmacist, Pharmacy Anticoagulation Clinic Pharmacy Anticoagulation Clinic Pager: [phone]. documented in this encounterTrihealth Bet[facility]11-17-2023 Miscellaneous Notes* Telephone Encounter - Senia Phillips RPh - 02/06/2023 4:28 PM EST [facility] Anticoagulation Episode Summary Anticoagulation Care Providers Provider Role Specialty Phone number Stas Mora MD Referring Family Medicine [phone] Roby Flores is a 87 year old [...] ALLERGIES No Known Allergies Indication for Warfarin: 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 Paroxysmal atrial fibrillation [...] Pharmacy Anticoagulation Clinic Pharmacy Anticoagulation Clinic Pager: [phone]. documented in this encounterTrihealth [facility]10-06-2023 Miscellaneous Notes* Telephone Encounter - Senia Phillips RPh - 12/26/2022 3:04 PM EDT [facility] Anticoagulation Episode Summary Anticoagulation Care Providers Provider Role Specialty Phone number Stas Mora MD Referring Family Medicine [phone] Roby Flores is a 87 year old [...] ALLERGIES No Known Allergies Indication for Warfarin: 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 Paroxysmal atrial fibrillation (hcc) Anticoagulation Episode Summary Current INR goal: 2.0-3.0 Assessment: INR result of 2.5 is therapeutic Plan: Current Warfarin Dosing As of 12/26/2022 Full warfarin instructions: 2.5 mg every day Sent [employer] message Advised patient to continue current weekly dose as noted above Next lab INR check scheduled on 01/09/2023 Senia Phillips RPh Clinical Pharmacist, Pharmacy Anticoagulation Clinic Pharmacy Anticoagulation Clinic Pager: [phone]. documented in this encounterTrihealth Bethes[facility]09-29-2023 Miscellaneous Notes* Telephone Encounter - Senia Phillips RPh - 12/19/2022 4:30 PM EDT [facility] Anticoagulation Episode Summary Anticoagulation Care Providers Provider Role Specialty Phone number Stas Mora MD Referring Family Medicine [phone] Roby Flores is a 87 year old [...] ALLERGIES No Known Allergies Indication for Warfarin: MCFP current use of anticoagulant Paroxysmal atrial fibrillation (hcc) Anticoagulation Episode Summary Current INR goal: 2.0-3.0 Assessment: INR result of 2.0 is therapeutic Plan: Current Warfarin Dosing As of 12/19/2022 Full warfarin instructions: 2.5 mg every day Sent [employer] message Advised patient to continue current weekly dose as noted above Next lab INR check scheduled on 01/02/2023 Senia Phillips RPh Clinical Pharmacist, Pharmacy Anticoagulation Clinic Pharmacy Anticoagulation Clinic Pager: [phone]. documented in this encounterTrihealth Bethes[facility]09-22-2023 Miscellaneous Notes* Telephone Encounter - Senia Phillips RPh - 12/12/2022 4:01 PM EDT [facility] Anticoagulation Episode Summary Anticoagulation Care Providers Provider Role Specialty Phone number Stas Mora MD Referring Family Medicine [phone] Roby Flores is a 87 year old [...] ALLERGIES No Known Allergies Indication for Warfarin: MCFP current use of anticoagulant Paroxysmal atrial fibrillation [...] Pharmacy Anticoagulation Clinic Pharmacy Anticoagulation Clinic Pager: [phone]. documented in this encounterTrihealth Bet[facility]09-01-2023 Miscellaneous Notes* Telephone Encounter - Jeimy Duong RPh - 11/21/2022 2:38 PM EDT [facility] Clinic Anticoagulation Episode Summary Anticoagulation Care Providers Provider Role Specialty Phone number Stas Mora MD Referring Family Medicine [phone] Roby Flores is a 87 year old [...] Pharmacy Anticoagulation Clinic Pharmacy Anticoagulation Clinic Pager: [phone]. documented in this encounterTrihealth Bet[facility]08-28-2023 Hospital Discharge instructions Patient Education 11/17/2022 [...] Wound changes colors Numbness around the wound 4518-5166 [employer] [address] [place] [address]. All rights reserved. This information is not [...] the ears or bruising around the eyes 1494-9464 [employer] [address] [place] [address]. All rights reserved. This information is not intended as a substitute for professional medical care. Always follow yourhealthcare professional's instructions. Follow Up Care 11/17/2022 15:05:08 With:Call Physician Referral Address:Unknown When:2-4 days [facility] 08-28-2023 Note Discharge Instructions Thank you for allowing [facility] to assist you with your healthcare needs. [...] Wound changes colors Numbness around the wound 0330-2892 [employer] [address] [place] [address], [place] [address]. All rights reserved. This information is not [...] the ears or bruising around the eyes 1958-[address] [employer] [address] [place] [address], [place] [address]. All rights reserved. This information is not intended as a substitute for professional medical care. Always follow yourhealthcare professional's instructions. Additional Information VACCINATE! IT SAVES LIVES! Members of the community who have not yet received the COVID-19 vaccine and would like to receive it can visit one of [facility] vaccine clinics. There are many vaccine clinic locations within the [facility]. For locations and available times, please visit www.[email or web address].[email or web address] It is important to note that some COVID mobile vaccine clinics are held outdoors and may be canceled in rainy or stormy conditions. To learn more about pediatric vaccinations (ages 5-11), we invite you to visit the [facility] webpage. [email or web address]/[email or web address] [email or web address] learn more about the COVID-19 vaccine, we invite you to visit the CDC website for a list of frequently asked questions. https://www.cdc.gov/coronavirus/2019-ncov/vaccines/faq.html [facility] [employer] Patient Portal Access Instructions: Stay connected with your healthcare team and access your personal medical information anytime with the [facility] Patient Portal. If you would like a full copy of your medical records please contact the [facility] Medical Records Department Thursday through Thursday between 8a.m. and 4:30p.m. Please follow the directions below to access the portal: 1.Access the email account you provided upon registration to the [facility].2.Look for an invitation email from [facility].3.Open the email and access the invitation link: Accept Invitation to [facility]4.Fill in the required العلي to create your account. Sign into www.[employer] with your username and password that you [...] you will allow to register on the [employer] [facility] Patient Portal for access to your information. You can also access the [facility] Patient Portal on the [employer] jonathon. Simply click on Health Records under [employer] and then click on the [employer] logo. HOW TO SAFELY DISPOSE OF PRESCRIPTION [...] Call your local pharmacy or go to [email or web address] to find one close to you.3.Make use of household items: Use cat litter or old coffee grounds to dispose medications if other options arenot available. Mix your drugs with these household products, seal them in an airtight container andthrow it into the garbage. Call [facility]: [phone] to be sure your drugs can be [...] and explained to me and I,ROBY FLORES Radha understand my current condition and have read and understand these discharge instructions. I have received a written copy of the plan/instructions. If I have questions, I am aware that I should contact my doctor. 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08-28-2023 Note ORIGINAL EXAMINATION: CT OF THE [...] 11/17/2022 4:26:20 PM Ordering Provider: [facility]08-18-2023 Miscellaneous Notes* Telephone Encounter - Senia Phillips [facility] - 11/07/2022 3:22 PM EDT [facility] Clinic Anticoagulation Episode Summary Anticoagulation Care Providers Provider Role Specialty Phone number Stas Mora MD Referring Family Medicine [phone] Roby Flores is a 87 year old [...] ALLERGIES No Known Allergies Indication for Warfarin: MCFP current use of anticoagulant Paroxysmal atrial fibrillation (hcc) Anticoagulation Episode Summary Current INR goal: 2.0-3.0 Assessment: INR result of 2.2 is therapeutic Plan: Current Warfarin Dosing As of 11/07/2022 Full warfarin instructions: 2.5 mg every day Sent [employer] message Advised patient to continue current weekly dose as noted above Next lab INR check scheduled on 11/21/2022 Senia Phillips RPh Clinical Pharmacist, Pharmacy Anticoagulation Clinic Pharmacy Anticoagulation Clinic Pager: [phone]. documented in this encounterTrihealth Bethes[facility]08-11-2023 Miscellaneous Notes* Telephone Encounter - Senia Phillips RPh - 10/31/2022 2:29 PM EDT Patient due to test INR today. Will continue to monitor for results. 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 documented in this encounterTrihealth Bethes[facility]07-28-2023 Miscellaneous Notes* Telephone Encounter - Jason [...] Anticoagulation TE call from today by [facility]. They spoke with pt at [phone] and gave pt instructions on what to do. Halina Castelan RN documented in this encounterTrihealth Bethesda [facility] Hospital07-28-2023 Miscellaneous Notes* Telephone Encounter - Yomi Wills RPh - 10/17/2022 3:43 PM EDT [facility] Anticoagulation Clinic Anticoagulation Episode Summary Anticoagulation Care Providers Provider Role Specialty Phone number Stas Mora MD Referring Family Medicine [phone] Roby Flores is a 87 year old [...] ALLERGIES No Known Allergies Indication for Warfarin: MCFP current use of anticoagulant Paroxysmal atrial fibrillation [...] 10/17/2022 Full warfarin instructions: 3.75 mg every Thu; [...] Pharmacy Anticoagulation Clinic Pharmacy Anticoagulation Clinic Pager: [phone]. documented in this encounterTrihealth Bethes[facility]07-07-2023 Miscellaneous Notes* Telephone Encounter - Jeimy Duong RPh - 09/26/2022 2:11 PM EDT [facility] An[facility]agulation Clinic Anticoagulation Episode Summary Anticoagulation Care Providers Provider Role Specialty Phone number Stas Mora MD Referring Family Medicine [phone] Roby Flores is a 87 year old [...] Pharmacy Anticoagulation Clinic Pharmacy Anticoagulation Clinic Pager: [phone]. 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 documented in this encounterTrihealth Bethes[facility]06-06-2023 Instructions* Patient Instructions* Marta Palacio Ma - 08/26/2022 1:36 PM EDT Please check your medications when you get home and make sure that your medications match our list. documented in this encounterTrihealth Bethesda [facility] Hospital06-06-2023 History of Present illness Narrative* Stas Mora MD - 08/26/2022 1:20 PM EDT Medical B eligibilty date 1999 Date of last exam 09/05/2021 PAST MEDICAL HISTORY Diagnosis Date Coronary atherosclerosis of unspecified type of vessel, chuloonawick or graft Coronary artery disease Other and [...] wishes: Yes I am willing to follow [place] advanced directives. Depression screen He in the [...] Past Histories independently gathered by the clinical business support assistant and the remaining scribed note accurately describes my personal service to the patient. Stas Mora MD The documentation for this note was completed by Marta Palacio Ma acting as scribe for Stas Mora MD. August 26, 2022 1:17 PM. Marta Palacio Ma documented in this encounterTrihealth Bethesda [facility] Hospital06-02-2023 Miscellaneous Notes* Telephone Encounter - Senia Alan [facility] - 08/22/2022 2:50 PM EDT [facility] Anticoagulation Clinic Anticoagulation Episode Summary Anticoagulation Care Providers Provider Role Specialty Phone number Stas Mora MD Referring Family Medicine [phone] Roby Flores is a 87 year old [...] ALLERGIES No Known Allergies Indication for Warfarin: MCFP current use of anticoagulant Paroxysmal atrial fibrillation (hcc) Anticoagulation Episode Summary Current INR goal: 2.0-3.0 Assessment: INR result of 2.4 is therapeutic Plan: Current Warfarin Dosing As of 08/22/2022 Full warfarin instructions: 3.75 mg every Fri; 2.5 mg all other days Sent [employer] message Advised patient to continue current weekly dose as noted above Next lab INR check scheduled on 08/29/2022 Senia Phillips RPh Clinical Pharmacist, Pharmacy Anticoagulation Clinic Pharmacy Anticoagulation Clinic Pager: [phone]. 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 Lety Gandara [facility] Clinical Pharmacist, Pharmacy Anticoagulation Clinic Pharmacy Anticoagulation Clinic Pager: [phone]. documented in this encounterTrihealth Bethes[facility]04-03-2023 Miscellaneous Notes* Telephone Encounter - Elvis Kearney APRN.CNP - 06/23/2022 10:17 AM EDT The following approved medication requests have been transmitted electronically. Requested Prescriptions Pending Prescriptions Disp Refills warfarin (COUMADIN) 2.5 mg tablet [Pharmacy Med Name: WARFARIN SODIUM 2.5 MG TABLET] 135 tablet 3 Sig: TAKE 5 MG EVERY MON, DIXIE 2.5 MG ALL OTHER DAYS Elvis Kearney APRN.CNP documented in this encounterTrihealth Bethes[facility]03-31-2023 Miscellaneous Notes* Telephone Encounter - Senia Phillips [facility] - 06/20/2022 4:46 PM EDT [facility] [facility] Anticoagulation Episode Summary Anticoagulation Care Providers Provider Role Specialty Phone number Stas Mora MD Referring Family Medicine [phone] Roby Flores is a 86 year old [...] ALLERGIES No Known Allergies Indication for Warfarin: MCFP current use of anticoagulant Paroxysmal atrial fibrillation [...] Pharmacy Anticoagulation Clinic Pharmacy Anticoagulation Clinic Pager: [phone]. 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 documented in this encounterTrihealth [facility]03-10-2023 Miscellaneous Notes* Telephone Encounter - Neeru Rice LPN - 05/30/2022 3:02 PM EST Pharmacists manage INR documented in this encounterTrihealth Bethes[facility]03-02-2023 Miscellaneous Notes* Telephone Encounter - Halina Alfaro LPN - 05/22/2022 8:51 AM EST Patient notified spouse of results, verbalizes understanding of instructions. She will tell Pt. Hailna Alfaro LPN * Telephone Encounter - Jenna [...] you. Jenna Fitzpatrick APRN.SHEMAR documented in this encounterTrihealth Bethes[facility]03-01-2023 Miscellaneous Notes* Telephone Encounter - Jduy Matos RN - 05/21/2022 12:32 PM EST [...] hip/leg 10. : na Protocols used: Hip [id number], Hip Xizsob-PPEOD-IJ documented in this encounterTrihealth Bethes[facility]03-01-2023 Miscellaneous Notes* Telephone Encounter - Fani Grace RN - 05/21/2022 12:22 PM EST Patient disconnected during transferred, called multiple time with no answer. documented in this encounterTrihealth [facility]hes[facility]02-27-2023 Miscellaneous Notes* Telephone Encounter - Paige [...] instructions. Franca Cohen LPN documented in this encounterTrihealth Bethes[facility]02-24-2023 Miscellaneous Notes* Telephone Encounter - Senia Phillips RPh - 05/16/2022 5:10 PM EST Patient due to test INR today. Will continue to monitor for results. Senia Phillips RPh documented in this encounterTrihealth Bethes[facility]02-10-2023 Miscellaneous Notes* Telephone Encounter - Senia Phillips RPh - 05/02/2022 3:06 PM EST [facility] Anticoagulation Episode Summary Anticoagulation Care Providers Provider Role Specialty Phone number Stas Mora MD Referring Family Medicine [phone] Royb Flores is a 86 year old year old male patient being evaluated today for a Telemanagement visit. Patient is currently on the following anticoagulant(s) Warfarin. Labs PT INR (no units) Date Value 05/15/2021 2.3 04/17/2021 1.9 03/13/2021 Test sent to [facility] [place]. INR (no units) Date Value 05/02/2022 2.1 [...] ALLERGIES No Known Allergies Indication for Warfarin: MCFP current use of anticoagulant Paroxysmal atrial fibrillation (hcc) Anticoagulation Episode Summary Current INR goal: 2.0-3.0 Assessment: INR result of 2.1 is therapeutic Plan: Current Warfarin Dosing As of 05/02/2022 Full warfarin instructions: 2.5 mg every day Sent [employer] message Advised patient to continue current weekly dose as noted above Next lab INR check scheduled on 05/16/2022 Senia Phillips RPh Clinical Pharmacist, Pharmacy Anticoagulation Clinic Pharmacy Anticoagulation Clinic Pager: [phone]. documented in this encounterTrihealth [facility]01-27-2023 Miscellaneous Notes* Telephone Encounter - Senia Phillips RPh - 04/18/2022 4:25 PM EST [facility] Anticoagulation Episode Summary Anticoagulation Care Providers Provider Role Specialty Phone number Stas Mora MD Referring Family Medicine [phone] Roby Flores is a 86 year old year old male patient being evaluated today for a Telemanagement visit. Patient is currently on the following anticoagulant(s) Warfarin. Labs PT INR (no units) Date Value 05/15/2021 2.3 04/17/2021 1.9 03/13/2021 Test sent to [facility] [place]. 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 documented in this encounterTrihealth [facility]01-13-2023 Miscellaneous Notes* Telephone Encounter - Elise Paredes, [facility] - 04/04/2022 4:09 PM EST [facility] Anticoagulation Episode Summary Anticoagulation Care Providers Provider Role Specialty Phone number Sats Mora MD Referring Family Medicine [phone] Roby Flores is a 86 year old year old male patient being evaluated today for a Lab INR. Patient is currently on the following anticoagulant(s) Warfarin. Labs PT INR (no units) Date Value 05/15/2021 2.3 04/17/2021 1.9 03/13/2021 Test sent to [facility] [place]. INR (no units) Date Value 04/04/2022 3.3 [...] ALLERGIES No Known Allergies Indication for Warfarin: MCFP current use of anticoagulant Paroxysmal atrial fibrillation [...] getting labs every 2 weeks Elise Paredes [facility] Clinical Pharmacist, Pharmacy Anticoagulation Clinic Pharmacy Anticoagulation Clinic Pager: [phone]. documented in this encounterTrihealth Bet[facility]01-09-2023 Miscellaneous Notes* Telephone Encounter - Rosie Cruz Ma - 03/31/2022 5:12 PM EST Office received continuity of care paperwork from the DC requesting pt's last OV, labs and Imm. PerPCP okay to fax back requested records. Faxed back to [facility] at F#: [phone]. Rosie Cruz Ma documented in this encounterTrihealth Bethes[facility]12-30-2022 Miscellaneous Notes* Telephone Encounter - Carmelina Cruz [facility] - 03/21/2022 4:05 PM EST [facility] Anticoagulation Episode Summary Anticoagulation Care Providers Provider Role Specialty Phone number Stas Mora MD Referring Family Medicine [phone] Roby Flores is a 86 year old year old male patient being evaluated today for a Telemanagement visit. Patient is currently on the following anticoagulant(s) Warfarin. Labs PT INR (no units) Date Value 05/15/2021 2.3 04/17/2021 1.9 03/13/2021 Test sent to [facility] [place]. INR (no units) Date Value 03/21/2022 2.9 [...] ALLERGIES No Known Allergies Indication for Warfarin: MCFP current use of anticoagulant Paroxysmal atrial fibrillation (hcc) Anticoagulation Episode Summary Current INR goal: 2.0-3.0 Assessment: INR result of 2.9 is therapeutic Plan: Current Warfarin Dosing As of 03/21/2022 Full warfarin instructions: 2.5 mg every day; Starting 03/21/2022 Sent [employer] message Advised patient to continue current weekly dose as noted above Next home INR check scheduled on 04/04/2022 Carmelina Cruz RPh Clinical Pharmacist, Pharmacy Anticoagulation Clinic Pharmacy Anticoagulation Clinic Pager: [phone]. * Telephone Encounter - Carmelina Cruz RPh - 03/21/2022 3:12 PM EST Patient due to test INR today. Will continue to monitor for results. Carmelina Cruz RPh documented in this encounterTrihealth Bethes[facility]12-02-2022 Miscellaneous Notes* Telephone Encounter - Oliva [...] whatever he wanted to. documented in this encounterTrihealth Bethes[facility] Hospital10-31-2022 Miscellaneous Notes* Telephone Encounter - Paige Hickman RPh - 01/20/2022 3:55 PM EDT [facility] Anticoagulation Episode Summary Anticoagulation Care Providers Provider Role Specialty Phone number tSas Mora MD Referring Family Medicine [phone] Roby Flores is a 86 year old year old male patient being evaluated today for a Telemanagement visit. Patient is currently on the following anticoagulant(s) Warfarin. Labs PT INR (no units) Date Value 05/15/2021 2.3 04/17/2021 1.9 03/13/2021 Test sent to [facility] [place]. INR (no units) Date Value 01/20/2022 1.7 [...] instructed to call [facility] at [phone] with any questionsor concerns. Paige Hickman RPh Clinical Pharmacist, Pharmacy Anticoagulation Clinic Pharmacy Anticoagulation Clinic Pager: [phone] documented in this encounterTrihealth Bethes[facility]10-28-2022 Miscellaneous Notes* Telephone Encounter - Senia [...] the providers message. Sent information as a [employer] message as well. Elana Valdes RN * [...] to contact patient with no answer at [phone]. Current dose of coumadin is: 2.5 mg every day . Previous INR (date and result): 01/03/22 2.4 documented in this encounterTrihealth Bethes[facility]10-24-2022 Miscellaneous Notes* Telephone Encounter - Jenna [...] advise. López Mckenna LPN documented in this encounterTrihealth Bethes[facility]10-14-2022 Miscellaneous Notes* Telephone Encounter - Senia Phillips RPh - 01/03/2022 4:11 PM EDT [facility] Anticoagulation Episode Summary Anticoagulation Care Providers Provider Role Specialty Phone number Stas Mora MD Referring Family Medicine [phone] Roby Flores is a 86 year old year old male patient being evaluated today for a Telemanagement visit. Patient is currently on the following anticoagulant(s) Warfarin. Labs PT INR (no units) Date Value 05/15/2021 2.3 04/17/2021 1.9 03/13/2021 Test sent to [facility] [place]. 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 documented in this encounterTrihealth Bethes[facility]10-14-2022 Miscellaneous Notes* Telephone Encounter - Marta Palacio Ma - 01/03/2022 10:49 AM EDT Pt notified of results via [employer]. Marta Palacio Ma * Telephone Encounter - Stas Mora MD - 01/02/2022 6:07 PM EDT Please notify patient that his thyroid ultrasound looks OK, the nodules are all small, appear normal, and do not need any further evaluation pr follow up. Stas Mora MD documented in this encounterTrihealth Bethes[facility]10-06-2022 History of Present illness Narrative* Stas Mora MD - 12/26/2021 11:20 AM EDT Chief Complaint Patient presents with: Hospital F/U HPI Roby Flores is a 86 year old [...] about 1-2 hours. Pt was admitted to [facility] ER 12/21/21 with stroke sx however [...] in the last year. Below copied from [facility] [employer]: HPI History of Present Illness Chief Complaint: [...] extremities. 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 Dorsi and plantar flexion intact. [...] Chronic anticoagulation: Status: Acute Code(s): Z79.01 - MCFP (current) 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 Medications at Discharge [...] symptoms resolved. Hospital Course: 1. TIA/paroxysmal A. [id number]-old male presented with right-sided weakness and aphasia, [...] Coronary atherosclerosis of unspecified type of vessel, chuloonawick or graft Coronary artery disease Other and [...] 12/06/2024 ADVANCE DIRECTIVE DISCUSSION Completed Data reviewed [facility] reports from 10/21/21-10/22/21 ASSESSMENT/PLAN: 1. Hospital [...] unspecified vessel or lesion type, unspecified whether chuloonawick or transplanted heart - ICD9: 414.00, ICD10: I25.10 Continue current medications. Follow up in Dec as scheduled with fasting labs prior. I agree with the Chief Complaint, ROS, and Past Histories independently gathered by the clinical business support assistant and the remaining scribed note accurately describes [...] AM. Marta Palacio Ma documented in this encounterTrihealth Bethes[facility] Hospital09-30-2022 Miscellaneous Notes* Telephone Encounter - Senia Phillips RPh - 12/20/2021 4:39 PM EDT [facility] Anticoagulation Episode Summary Anticoagulation Care Providers Provider Role Specialty Phone number Stas Mora MD Referring Family Medicine [phone] Roby Flores is a 86 year old year old male patient being evaluated today for a Telemanagement visit. Patient is currently on the following anticoagulant(s) Warfarin. Labs PT INR (no units) Date Value 05/15/2021 2.3 04/17/2021 1.9 03/13/2021 Test sent to [facility] [place]. INR (no units) Date Value 12/20/2021 2.1 [...] ALLERGIES No Known Allergies Indication for Warfarin: MCFP current use of anticoagulant Paroxysmal atrial fibrillation (hcc) Anticoagulation Episode Summary Current INR goal: 2.0-3.0 Assessment: INR result of 2.1 is therapeutic Plan: Current Warfarin Dosing As of 12/20/2021 Full warfarin instructions: 2.5 mg every day Sent [employer] message Advised patient to continue current weekly dose as noted above Next lab INR check scheduled on 01/03/2022 Senia Phillips RPh Clinical Pharmacist, Pharmacy Anticoagulation Clinic Pharmacy Anticoagulation Clinic Pager: [phone]. documented in this encounterTrihealth Bethes[facility]09-16-2022 Miscellaneous Notes* Telephone Encounter - Senia Phillips RPh - 12/06/2021 4:29 PM EDT [facility] Anticoagulation Episode Summary Anticoagulation Care Providers Provider Role Specialty Phone number Stas Mora MD Referring [facility] [phone] Roby Flores is a 86 year old year old male patient being evaluated today for a Telemanagement visit. Patient is currently on the following anticoagulant(s) Warfarin. Labs PT INR (no units) Date Value 05/15/2021 2.3 04/17/2021 1.9 03/13/2021 Test sent to [facility] [place]. INR (no units) Date Value 12/06/2021 3.8 [...] ALLERGIES No Known Allergies Indication for Warfarin: MCFP current use of anticoagulant Paroxysmal atrial fibrillation [...] Pharmacy Anticoagulation Clinic Pharmacy Anticoagulation Clinic Pager: [phone]. documented in this encounterTrihealth Bethes[facility]09-02-2022 Miscellaneous Notes* Telephone Encounter - Janice Huang riya - 11/22/2021 5:17 PM EDT [facility] Anticoagulation Episode Summary Anticoagulation Care Providers Provider Role Specialty Phone number Stas Mora MD Referring [facility] [phone] Roby Flores is a 86 year old year old male patient being evaluated today for a Telemanagement visit. Patient is currently on the following anticoagulant(s) Warfarin. Labs PT INR (no units) Date Value 05/15/2021 2.3 04/17/2021 1.9 03/13/2021 Test sent to [facility] [place]. INR (no units) Date Value 11/22/2021 2.4 [...] ALLERGIES No Known Allergies Indication for Warfarin: MCFP current use of anticoagulant Paroxysmal atrial fibrillation [...] Advised pt to Call Coumadin Clinic at [phone] to confirm dosing and follow-up Janice Huang riya Clinical Pharmacist, Pharmacy Anticoagulation Clinic Pharmacy Anticoagulation Clinic Pager: [phone]. documented in this encounterTrihealth Bethes[facility]08-19-2022 Miscellaneous Notes* Telephone Encounter - Senia Phillips RPh - 11/08/2021 5:01 PM EDT [facility] Anticoagulation Episode Summary Anticoagulation Care Providers Provider Role Specialty Phone number Stas Mora MD Referring [facility] [phone] Roby Flores is a 86 year old year old male patient being evaluated today for a Telemanagement visit. Patient is currently on the following anticoagulant(s) Warfarin. Labs PT INR (no units) Date Value 05/15/2021 2.3 04/17/2021 1.9 03/13/2021 Test sent to [facility] [place]. INR (no units) Date Value 11/08/2021 2.8 [...] ALLERGIES No Known Allergies Indication for Warfarin: MCFP current use of anticoagulant Paroxysmal atrial fibrillation (hcc) Anticoagulation Episode Summary Current INR goal: 2.0-3.0 Assessment: INR result of 2.8 is therapeutic Plan: Current Warfarin Dosing As of 11/08/2021 Full warfarin instructions: 2.5 mg every day Sent [employer] message Advised patient to continue current weekly dose as noted above Next lab INR check scheduled on 11/22/2021 Senia Phillips RPh Clinical Pharmacist, Pharmacy Anticoagulation Clinic Pharmacy Anticoagulation Clinic Pager: [phone]. documented in this encounterTrihealth Bethes[facility]08-05-2022 Miscellaneous Notes* Telephone Encounter - Janice Huang RPh - 10/25/2021 4:16 PM EDT [facility] Anticoagulation Episode Summary Anticoagulation Care Providers Provider Role Specialty Phone number Stas Mora MD Referring [facility] [phone] Roby Flores is a 86 year old year old male patient being evaluated today for a Telemanagement visit. Patient is currently on the following anticoagulant(s) Warfarin. Labs PT INR (no units) Date Value 05/15/2021 2.3 04/17/2021 1.9 03/13/2021 Test sent to [facility] [place]. 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 documented in this encounterTrihealth Bethesda [facility]07-08-2022 Miscellaneous Notes* Telephone Encounter - Elana Campbell ([employer]) - 09/27/2021 4:50 PM EDT PATIENT CALL Patient called call center regarding results. Patient called and stated he had his INR checked today (09/27) and it was 2.3. Patient can be called at [phone] with any questions or sent [facility] message if result is within range. PT INR (no units) Date Value 05/15/2021 2.3 04/17/2021 1.9 03/13/2021 Test sent to [facility] [place]. INR (no units) Date Value 09/27/2021 2.3 09/13/2021 2.7 08/30/2021 2.1 Elnaa Campbell ([employer]) * Telephone Encounter - Yomi Wills RPh - 09/27/2021 6:28 AM EDT Patient due to test INR today. Will continue to monitor for results. Yomi Wills RPh documented in this encounterTrihealth Bethesda [facility] Hospital06-24-2022 Miscellaneous Notes* Telephone Encounter - Senia Phillips RPh - 09/13/2021 4:11 PM EDT [facility] Anticoagulation Episode Summary Anticoagulation Care Providers Provider Role Specialty Phone number Stas Mora MD Referring [facility] [phone] Roby Flores is a 86 year old year old male patient being evaluated today for a Telemanagement visit. Patient is currently on the following anticoagulant(s) Warfarin. Labs PT INR (no units) Date Value 05/15/2021 2.3 04/17/2021 1.9 03/13/2021 Test sent to [facility] [place]. 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 documented in this encounterTrihealth Bethesda [facility] Hospital06-16-2022 History of Present illness Narrative* Stas Mora MD - 09/05/2021 11:20 AM EDT Medical B eligibilty date 1999 Date of last exam 08/28/2020 PAST MEDICAL HISTORY Diagnosis Date Coronary atherosclerosis of unspecified type of vessel, chuloonawick or graft Coronary artery disease Other and [...] [place] every [facility] [place]. Pt follows with [facility] for Coumadin management. Pt denies [...] to remember the following three words: Banana, Bluebell and Chair Visuospatial/Executive Functioning: Clock drawin/2 (Normal [...] Past Histories independently gathered by the clinical business support assistant and the remaining scribed note accurately describes my personal service to the patient. Stas Mora MD The documentation for this note was completed by Rosie Cruz Ma acting as scribe for Stas Mora MD. September 05, 2021 11:33 AM. Rosie Cruz Ma documented in this encounterTrihealth Bethesda [facility] Hospital06-10-2022 Miscellaneous Notes* Telephone Encounter - Senia Phillips, [facility] - 08/30/2021 5:10 PM EDT [facility] An[facility]agulation Clinic Anticoagulation Episode Summary Anticoagulation Care Providers Provider Role Specialty Phone number Stas Mora MD Referring [facility] [phone] Roby Flores is a 86 year old year old male patient being evaluated today for a Telemanagement visit. Patient is currently on the following anticoagulant(s) Warfarin. Labs PT INR (no units) Date Value 05/15/2021 2.3 04/17/2021 1.9 03/13/2021 Test sent to [facility] [place]. INR (no units) Date Value 08/30/2021 2.1 [...] ALLERGIES No Known Allergies Indication for Warfarin: MCFP current use of anticoagulant Paroxysmal atrial fibrillation (hcc) Anticoagulation Episode Summary Current INR goal: 2.0-3.0 Assessment: INR result of 2.1 is therapeutic Plan: Sent [employer] message Advised patient to continue current weekly dose Next lab INR check scheduled on 09/13/2021 Senia Phillips RPh Clinical Pharmacist, Pharmacy Anticoagulation Clinic Pharmacy Anticoagulation Clinic Pager: [phone] . documented in this encounterTrihealth Bethes[facility]06-10-2022 Miscellaneous Notes* Telephone Encounter - Jenna Fitzpatrick APRN.CNP - 08/30/2021 8:56 AM EDT Needs order for PT/INR, order signed. Jenna Fitzpatrick APRN.CNP documented in this encounterTrihealth Bethesda [facility] Hospital05-27-2022 Miscellaneous Notes* Telephone Encounter - Rosie Cruz Ma - 08/16/2021 2:18 PM EDT INR has been reviewed in another encounter. Rosie Cruz Ma documented in this encounterTrihealth [facility]05-13-2022 Miscellaneous Notes* Telephone Encounter - Senia Phillips RPh - 08/02/2021 4:11 PM EDT [facility] Ambulatory Pharmacy Anticoagulation Clinic Anticoagulation Episode Summary Anticoagulation Care Providers Provider Role Specialty Phone number Stas Mora MD Referring [facility] [phone] Roby Flores is a 85 year old year old male patient being evaluated today for a Telemanagement visit. Patient is currently on the following anticoagulant(s) Warfarin. Labs PT INR (no units) Date Value 05/15/2021 2.3 04/17/2021 1.9 03/13/2021 Test sent to [facility] [place]. INR (no units) Date Value 08/02/2021 3.2 [...] ALLERGIES No Known Allergies Indication for Warfarin: MCFP current use of anticoagulant Paroxysmal atrial fibrillation [...] Pharmacy Anticoagulation Clinic Pharmacy Anticoagulation Clinic Pager: [phone] . documented in this encounterTrihealth [facility] Miscellaneous Notes* Telephone Encounter - Rosie [...] months Stas Mora MD documented in this encounterTrihealth [facility] Miscellaneous Notes* Telephone Encounter - Elvis Kearney APRN.CNP - 07/15/2021 12:39 PM EDT The following approved medication requests have been transmitted electronically. Pending Prescriptions Disp Refills WARFARIN 2.5 MG TABLET 135 tablet 3 Sig: TAKE 5 MG EVERY MON, DIXIE 2.5 MG ALL OTHER DAYS MESFIN: No Elvis Kearney APRN.CNP documented in this encounterTrihealth [facility]04-18-[facility] History of Present illness Narrative* Stas [...] SOB. No swelling in feet orankles. 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 Taking Fosinopril 10 mg daily. Lipid: Taking [...] Coronary atherosclerosis of unspecified type of vessel, [place] or graft Coronary artery disease Other and [...] unspecified vessel or lesion type, unspecified whether [place] or transplanted heart - ICD9: 414.00, ICD10: [...] Past Histories independently gathered by the clinical business support assistant and the remaining scribed note accurately describes [...] AM. Marta Palacio Ma documented in this encounterTrihealth [facility]04-13-[facility] Miscellaneous Notes* Telephone Encounter - Coretta Jalloh, [facility] - 07/03/2021 3:40 PM EDT [facility] Ambulatory Pharmacy Anticoagulation Clinic Anticoagulation Episode Summary Anticoagulation Care Providers Provider Role Specialty Phone number Stas Mora MD Referring [facility] Practice [phone] Roby Flores is a 85 year old year old male patient being evaluated today for a Lab INR. Patient is currently on the following anticoagulant(s) Warfarin. Labs PT INR (no units) Date Value 05/15/2021 2.3 04/17/2021 1.9 03/13/2021 Test sent to [facility] [place]. INR (no units) Date Value 07/03/2021 4.5 06/12/2021 3.5 Creatinine (mg/dL) Date Value 03/13/2021 0.80 08/28/2020 0.83 Bilirubin, Total (mg/dL) Date Value 03/13/2021 0.5 ALT (U/L) Date Value 03/13/2021 24 AST (U/L) Date Value 03/13/2021 24 CrCl cannot be calculated (Unknown ideal weight.). 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 * Telephone Encounter - Marta Palacio Ma - 07/03/2021 3:05 PM EDT INR 4.5. Results routed to pharmacist who Handles pt coumadin. Marta Palacio Ma documented in this encounterTrihealth [facility]03-23-[facility]22 Miscellaneous Notes* Telephone Encounter - Coretta Jalloh RPh - 06/12/2021 3:20 PM EDT [facility]ulatory Pharmacy Anticoagulation Clinic Anticoagulation Episode Summary Anticoagulation Care Providers Provider Role Specialty Phone number Stas Mora MD Referring [facility] [phone] Roby Flores is a 85 year old year old male patient being evaluated today for a Lab INR. Patient is currently on the following anticoagulant(s) Warfarin. Labs PT INR (no units) Date Value 05/15/2021 2.3 04/17/2021 1.9 03/13/2021 Test sent to [facility] [place]. INR (no units) Date Value 06/12/2021 3.5 Creatinine (mg/dL) Date Value 03/13/2021 0.80 08/28/2020 0.83 Bilirubin, Total (mg/dL) Date Value 03/13/2021 0.5 ALT (U/L) Date Value 03/13/2021 24 AST (U/L) Date Value 03/13/2021 24 CrCl cannot be calculated (Unknown ideal weight.). ALLERGIES No Known Allergies Indication for Warfarin: MCFP current use of anticoagulant Paroxysmal atrial fibrillation (hcc) Anticoagulation Episode Summary Current INR goal: 2.0-3.0 Assessment: INR result of 3.5 is SUPRAtherapeutic due to: No obvious cause Plan: Called and spoke to patient/caregiver Advised patient to hold 1 dose then continue current regimen Next lab INR check scheduled on 07/03 in [place]. Patient verbalizes understanding of the plan. Patient denies need for refills. Coretta Jalloh RPh Clinical Pharmacist, Pharmacy Anticoagulation Clinic Pharmacy Anticoagulation Clinic Pager: [phone] . * Telephone Encounter - Rosie Cruz Ma - 06/12/2021 3:08 PM EDT Pt's INR results have finalized. Routing to pharm to review and advise. Rosie Cruz Ma documented in this encounterTrihealth [facility]12-21-2020 History of Present illness Narrative* Hsusein George Tech (Rt) - 03/12/2020 5:00 PM [...] 12, 2020 5:01 PM documented in [facility] encounterV[facility] summary Author Inderjit Gillespie [facility] [place] Note Date/Time September 01, 2024 10:2 5am [facility] Medical Records Department [address] [place] [address] Emergency Department Summary 09/01/24 MR#: [id number] Acct: [id number] Name: ROBY FLORES Rep #:[id number] : [...] shoulders elbows and wrist. 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 Neurologically he is awake alert. Answering [...] 87.5 H Lymph % (Auto) 4.8 L [place] % (Auto) 5.7 Eos % (Auto) 1.2 [...] Clarity Clear Urine pH 8.0 Ur Specific [place] 1.010 Urine Protein 15 H Urine Glucose [...] or dislocation present. Reading Location: [facility]--[address] 09/01/24 09:05 IMPRESSION: Cerebral atrophy. Mucosal thickening of the ethmoid sinuses as well as opacification of the left maxillary sinus. Reading Location: [facility]-IR-1 Chest X-Ray 09/01/24 09:25 IMPRESSION: No acute abnormality is seen. Reading Location: [facility]-IR-1 Chest x-ray, 2 views, AP and lateral, [...] to thrive Disposition Disposition: Acute Care Hospital [facility] What to do if you have Problems For any increased pain, shortness of breath, bleeding, nausea or vomiting, chestpain, or any unexpected problems, contact your Primary Care Provider. Call [facility] ([phone]) or report to the closest Emergency Room. Call 911 if necessary. 09/01/24 1025 <Electronically signed by Inderjit Gillespie MD> Cosigner Signature (if applicable): CC: Dr. Stas Mora MD ~ Signed [facility] Work Phone: Evaluation + Plan note No data available for this section [facility] Evaluation note* Diagnosis MCFP current use of anticoagulant- Primary Long-term (current) 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 Paroxysmal atrial fibrillation (HCC) Atrial [facility]FP current use of anticoagulant- Primary Long-term (current) 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 Paroxysmal atrial fibrillation (HCC) Atrial fibrillation [facility] Diagnosis Essential hypertension, benign- Primary Atherosclerosis 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, unspecified vessel or lesion type, unspecified whether [place] or transplanted heart Paroxysmal atrial fibrillation (HCC) Atrial fibrillation Primary osteoarthritis of both knees Primary localized osteoarthrosis, lower leg [facility] Atherosclerosis 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, unspecified vessel or lesion type, unspecified whether [place] or transplanted heart- Primary Essential hypertension, benign [facility] 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 Long-term (current) 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 Paroxysmal atrial fibrillation (HCC) Atrial fibrillation [facility] Diagnosis Elevated INR- Primary Abnormal coagulation profile [facility] Diagnosis MCFP current use of anticoagulant- Primary Long-term (current) 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 Paroxysmal atrial fibrillation (HCC) Atrial fibrillation [facility] Diagnosis Encounter for Medicare annual wellness exam- Primary Routine general medical examination at a health care facility Paroxysmal atrial fibrillation (HCC) Atrial fibrillation Essential hypertension, benign [facility] 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 Long-term (current) 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 Encounter for monitoring Coumadin therapy Encounter for therapeutic drug monitoring documented [facility]* 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 Long-term (current) 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 Paroxysmal atrial fibrillation (HCC) Atrial fibrillation [facility]* 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 Work Phone: Evaluation note* Diagnosis Onset Date Resolution Status Chronic anticoagulation acut e Stroke-like symptoms acute TIA (transient ischemic attack) acute CAD (coronary artery disease) [facility] Work Phone: Evaluation note* Diagnosis Hospital discharge follow-up- Primary Other follow-up examination Encounter for immunization Need for other specified prophylactic vaccination against single bacterial disease TIA (transient ischemic attack) Unspecified transient cerebral ischemia Thyroid nodule Nontoxic uninodular goiter Essential hypertension, benign Paroxysmal atrial fibrillation (HCC) Atrial fibrillation Atherosclerosis 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, unspecified vessel or lesion type, unspecified whether [place] or transplanted heart documented in this encounter [facility]* Diagnosis MCFP current use of anticoagulant- Primary Long-term (current) 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 Paroxysmal atrial fibrillation (HCC) Atrial fibrillation [facility]* 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* Diagnosis MCFP current use of anticoagulant- Primary Long-term (current) 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 Paroxysmal atrial fibrillation (HCC) Atrial fibrillation [facility]* Diagnosis Encounter for Medicare annual wellness exam- Primary Routine general medical examination at a health care facility Paroxysmal atrial fibrillation (HCC) Atrial fibrillation Essential hypertension, benign Hyperlipidemia, unspecified hyperlipidemia type documented [facility] this [facility]* 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 Long-term (current) 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 Paroxysmal atrial fibrillation (HCC) Atrial fibrillation [facility]* Diagnosis MCFP current use of anticoagulant- Primary Long-term (current) 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 Paroxysmal atrial fibrillation (HCC) Atrial fibrillation [facility]* 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* Diagnosis Cerebral infarction, unspecified mechanism (HCC)- Primary Generalized weakness Other malaise and fatigue Speech disturbance, unspecified type Hyperlipidemia, unspecified hyperlipidemia type Essential hypertension, benign Paroxysmal atrial fibrillation (HCC) Atrial fibrillation documented [facility] this [facility]* Diagnosis Cerebral infarction, unspecified mechanism (HCC) documented [facility]* Diagnosis MCFP current use of anticoagulant- Primary Long-term (current) 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 Paroxysmal atrial fibrillation (HCC) Atrial fibrillation documented in this encounter [facility]* Diagnosis Essential hypertension, benign- Primary Paroxysmal atrial fibrillation (HCC) Atrial fibrillation Atherosclerosis 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, unspecified vessel or lesion type, unspecified whether [place] or transplanted heart Hyperlipidemia, unspecified hyperlipidemia type History of stroke with 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 Speech disturbance, unspecified type documented [facility]* Diagnosis Abnormal CBC- Primary Other abnormal blood chemistry documented [facility]* 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 Long-term (current) 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 Paroxysmal atrial fibrillation (HCC) Atrial fibrillation [facility]* Diagnosis MCFP current use of anticoagulant- Primary Long-term (current) 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 Paroxysmal atrial fibrillation (HCC) Atrial fibrillation [facility]* Diagnosis MCFP current use of anticoagulant- Primary Long-term (current) 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 Paroxysmal atrial fibrillation (HCC) Atrial fibrillation [facility]* Diagnosis MCFP current use of anticoagulant- Primary Long-term (current) 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 Paroxysmal atrial fibrillation (HCC) Atrial fibrillation [facility]* Diagnosis 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, psychotic disturbance, mood disturbance, or anxiety (HCC)- Primary Essential hypertension, benign Paroxysmal atrial fibrillation (HCC) Atrial fibrillation [facility]* Diagnosis Edema of both lower legs- Primary [facility]* 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 Long-term (current) 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 Paroxysmal atrial fibrillation (HCC) Atrial fibrillation [facility]* Diagnosis MCFP current use of anticoagulant Long-term (current) use of anticoagulants Paroxysmal atrial fibrillation (HCC) Atrial fibrillation [facility]* Diagnosis Essential hypertension, benign- Primary Hyperlipidemia, unspecified hyperlipidemia type Edema of both lower legs Paroxysmal atrial fibrillation (HCC) Atrial fibrillation History of stroke with 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, psychotic disturbance, mood disturbance, or anxiety (HCC) Urinary frequency Abnormal CBC Other abnormal blood chemistry documented [facility]* Diagnosis MCFP 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 of anticoagulant- Primary Long-term (current) use of anticoagulants Paroxysmal atrial fibrillation (HCC) Atrial fibrillation [facility]* Diagnosis MCFP 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 use of anticoagulant- Primary Long-term (current) use of anticoagulants Paroxysmal atrial fibrillation (HCC) Atrial fibrillation [facility] encounter [facility]* Diagnosis Left hip pain Pain in joint, pelvic region and thigh documented [facility] this encounter [facility]* 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 Long-term (current) use of anticoagulants Paroxysmal atrial fibrillation (HCC) Atrial fibrillation [facility]* Diagnosis Acute right-sided low back pain, unspecified whether sciatica present documented in this encounter [facility]* Diagnosis Paroxysmal atrial fibrillation (HCC)- Primary Atrial fibrillation [facility]* 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 Long-term (current) use of anticoagulants Paroxysmal atrial fibrillation (HCC) Atrial fibrillation documented [facility] this encounter [facility]* Diagnosis MCFP current use of anticoagulant- Primary Long-term (current) use of anticoagulants Paroxysmal atrial fibrillation (HCC) Atrial fibrillation documented [facility] this encounter [facility]* Diagnosis Dementia, unspecified dementia severity, unspecified dementia type, unspecified whether behavioral, psychotic, or mood disturbance or anxiety (HCC)- Primary documented in [facility] encounter [facility]* 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 Long-term (current) use of anticoagulants Paroxysmal atrial fibrillation (HCC) Atrial fibrillation documented in this encounter [facility] note* Diagnosis Dementia, unspecified dementia severity, [...] and musculoskeletal systems documented in this encounter [facility] note* Diagnosis Cognitive impairment, mild, so stated Mild cognitive impairment, so stated documented in this encounter [facility] note* Diagnosis Essential hypertension, benign- Primary Hyperlipidemia, unspecified hyperlipidemia type Atherosclerosis 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, unspecified vessel or lesion type, unspecified whether [place] or transplanted heart Paroxysmal atrial fibrillation (HCC) Atrial fibrillation Edema of both lower legs History of stroke with 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 Dementia, unspecified dementia severity, unspecified dementia type, unspecified whether behavioral, psychotic, or mood disturbance or anxiety (HCC) documented in this encounter [facility] note* 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) Paralysis agitans documented in this encounter [facility] note* Diagnosis Bursitis of right elbow, unspecified bursa- Primary documented in this encounter [facility] note* Diagnosis Moderate dementia without behavioral disturbance, psychotic disturbance, mood disturbance, or anxiety, unspecified dementia type (HCC)- Primary Hallucinations Screening for depression Encounter for screening examination for other mental health and behavioral disorders documented in this encounter [facility] for referral (narrative)* Diagnostic Procedure Only (Routine) - Authorized Specialty Diagnoses / Procedures Referred By Jennifer gomez Referred To Contact US IMAGING Diagnoses Thyroid nodule Procedures US THYROID/PARATHYROID US SOFT TISSUE HEAD & NECK REAL TIME IMGE Stas Queen MD [address] [place] [address] Us Imaging Referral ID Status Reason Start Date Expiration Date Visits Requested Visits Authorized [id number] Authorized Auto-Generat ed Referral 12/26/2021 01/25/2023 1 1 [facility] for referral (narrative)* Diagnostic Procedure Only (Urgent) - Closed Specialty Diagnoses / Procedures Referred By Contac t Referred To Contact XR IMAGING Diagnoses Left hip pain Procedures XR HIP GENERAL 3V PELV/AP/LAT LEFT RADEX HIP UNILATERAL WITH PELVIS 2-3 VIEWS Jenna Fitzpatrick APRN.REPORT ANALYST [address] [place] [address] [place] [address] Referral ID Status Reason Start Date Expiration Date V isits Requested Visits Authorized [id number] Closed Auto-Generate d Referral 05/21/2022 06/20/2023 1 1 [facility] for referral (narrative)No reason for referral information availableWBerger Hospital Work Phone: [facility] N[facility]* Diagnostic Procedure Only (Urgent) - Closed Specialty Diagnoses / Procedures Referred By Contac t Referred To Contact XR IMAGING Diagnoses Left hip pain Procedures XR HIP GENERAL 3V PELV/AP/LAT LEFT RADEX HIP UNILATERAL WITH PELVIS 2-3 VIEWS Jenna Fitzpatrick, JETHRO.REPORT ANALYST [address] [place] [address] [place] [address] Referral ID Status Reason Start Date Expiration Date V isits Requested Visits Authorized [id number] Closed Auto-Generate d Referral 05/21/2022 06/20/2023 1 1 [facility] for visit Narrative* MRI/CT (Routine) - Closed Specialty Diagnoses / Procedures Referred By Contac t Referred To Contact MR IMAGING Diagnoses Cognitive impairment, mild, so stated Procedures MRI BRAIN W QUANT WO IVCON MRI BRAIN BRAIN STEM W/O CONTRAST MATERIAL Luciana Cisneros MD [address] [place] [address] Phone: tel: fax: [place] [address] Referral ID Status Reason Start Date Expiration Date V isits Requested Visits Authorized [id number] Closed Auto-Generate d Referral 05/11/2024 07/10/2024 1 1 [facility] Summary Purpose Family History No Family [...] Will Yes December 21 6:17pm Power of Knife Glazer Yes December 21 6:17pm Name of Medical Power of Knife Glazer IRAJ HULL , DAUGHTER December 21, 2021 6:17pm Advance Directive Response Recorded Date/ Time Name of Medical Power of Knife Glazer Anabella Hull December 21, 2021 8:06pm Living Will Yes December 21 8:06pm Power of Knife Glazer Yes December 21 8:06pm Advance Directive Response Recorded Date/ Time Living Will Yes February 10, 023 3:17pm Power of Knife Glazer Yes February 10, 2023 3:17pm Name of Medical Power of Knife Glazer daughter-yomi hull February 10, 2023 3:17pm Advance Directive Response Recorded Date/ Time Do you have a Healthcare Power of Knife Glazer? Yes September 01, 2024 7:36am Name of Medical Power of Knife Glazer anabella hull September 01, 2024 7:36am Advance Directive Response Recorded Date/ Time Do you have a Healthcare Power of Knife Glazer? Yes September 01, 2024 12:00pm Name of Medical Power of Knife Glazer anabella hull September 01, 2024 12:00pm Chief [...] LAB WORK September 28, 2024 5:00a m US[facility] LAB WORK September 29, 2024 5: 00am Admission H&P Exam September 30, 2024 5:50 pm USP LAB WORK October 05, 2024 5: 00am USP LAB WORK October 06, 2024 5: 00am [...] LAB WORK September 28, 2024 5:00a m USP LAB WORK September 29, 2024 5: 00am Admission H&P Exam September 30, 2024 5:50 pm USP LAB WORK October 05, 2024 5: 00am USP LAB WORK October 06, 2024 5: 00am [...] LAB WORK September 28, 2024 5:00a m USP LAB WORK September 29, 2024 5: 00am Admission H&P Exam September 30, 2024 5:50 pm USP LAB WORK October 05, 2024 5: 00am USP LAB WORK October 06, 2024 5: 00am [...] LAB WORK September 28, 2024 5:00a m USP LAB WORK September 29, 2024 5: 00am Admission H&P Exam September 30, 2024 5:50 pm USP LAB WORK October 05, 2024 5: 00am USP LAB WORK October 06, 2024 5: 00am [...] COMPLEX 45 MINS Luciana Cisneros MD [address] [place] [address] [facility] [address] [place] [id number] Referral ID Status Reason Start Date Expiration Date Visits Requested Visits Authorized [id number] Pending Review Auto-Generat ed Referral 04/27/2024 04/27/2025 1 1 Specialty Diagnoses / Procedures Referred By Jennifer gomez Referred To Contact MR IMAGING Diagnoses Cognitive impairment, mild, so stated Procedures MRI BRAIN W QUANT WO IVCON MRI BRAIN BRAIN STEM W/O CONTRAST MATERIAL Luciana Cisneros MD [address] [place] [address] [place] [address] Referral ID Status Reason Start Date Expiration Date Visits Requested Visits Authorized [id number] Pending Review Auto-Generat ed Referral 04/27/2024 05/27/2025 1 1 Specialty Diagnoses / Procedures Referred By Contac t Referred To Contact Gerontology Diagnoses Dementia, unspecified dementia severity, unspecified dementia type, unspecified whether behavioral, psychotic, or mood disturbance or anxiety (HCC) Procedures CONSULT TO GERIATRICS OFFICE/OUTPATIENT [facility] MDM 60 MINUTES Stas Mora MD [address] [place] [address] Referral ID Status Reason Start Date Expiration Date Visits Requested Visits Authorized [id number] Authorized PCP Requested Referral 04/25/2024 04/25/2025 1 1 Specialty Diagnoses / Procedures Referred By Contac t Referred To Contact MR IMAGING Diagnoses Cerebral infarction, unspecified mechanism (HCC) Procedures MRI BRAIN WO IVCON MRI BRAIN BRAIN STEM W/O CONTRAST MATERIAL Stas Mora MD [address] [place] [address] Mr Imaging [id number] Referral ID Status Reason Start Date Expiration Date Visits Requested Visits Authorized [id number] Pending Review Auto-Genera eli Referral Patient Cleared - Admin/Chair man/Directo r advise to proceed or did not respond 3 03/17/2024 1 1 Additional Source Comments (unrecognized sect ion and content) No Status Records FoundNo Status Records FoundNo Status Records FoundNo Status Records FoundNo Status Records FoundNo Status Records FoundNo Status Records Found INFORMATION SOURCE (unrecogn ized section and content) DATE CREATED AUTHOR 09/11/2017 [facility] DATE CREATED AUTHOR AUTHOR'S ORGANIZ ATION 09/11/2017 [facility] DATE CREATED AUTHOR AUTHOR'S ORGANIZ ATION 09/15/2017 [facility] DATE CREATED AUTHOR AUTHOR'S ORGANIZ ATION 08/12/2023 [facility] ([place]) DATE CREATED AUTHOR AUTHOR'S ORGANIZ ATION 05/24/2024 [facility] DATE CREATED AUTHOR AUTHOR'S ORGANIZ ATION 11/19/2024 [facility] DATE CREATED AUTHOR AUTHOR'S ORGANIZ ATION 11/24/2024 [facility] Source Comments (unrecognize d section and content) In the event this informatio n is protected by the Federal Confidentiality of Alcohol and Drug Abuse Patient Records regulations: The Federal rules restrict any use of the information to criminally investigate or prosecute any alcohol or drug abuse patient.[facility] HospitalIn the event this information is protected by the Federal Confidentiality of Alcohol and Drug Abuse Patient Records regulations: The Federal rules restrict any use of the information to criminally investigate or prosecute any alcohol or drug abuse patient.[facility] HospitalIn the event this information is protected by the Federal Confidentiality of Alcohol and Drug Abuse Patient Records regulations: The Federal rules restrict any use of the information to criminally investigate or prosecute any alcohol or drug abuse patient.[facility] HospitalIn the event this information is protected by the Federal Confidentiality of Alcohol and Drug Abuse Patient Records regulations: The Federal rules restrict any use of the information to criminally investigate or prosecute any alcohol or drug abuse patient.[facility] HospitalIn the event this information is protected by the Federal Confidentiality of Alcohol and Drug Abuse Patient Records regulations: The Federal rules restrict any use of the information to criminally investigate or prosecute any alcohol or drug abuse patient.[facility] HospitalIn the event this information is protected by the Federal Confidentiality of Alcohol and Drug Abuse Patient Records regulations: The Federal rules restrict any use of the information to criminally investigate or prosecute any alcohol or drug abuse patient.[facility] HospitalIn the event this information is protected by the Federal Confidentiality of Alcohol and Drug Abuse Patient Records regulations: The Federal rules restrict any use of the information to criminally investigate or prosecute any alcohol or drug abuse patient.[facility] HospitalIn the event this information is protected by the Federal Confidentiality of Alcohol and Drug Abuse Patient Records regulations: The Federal rules restrict any use of the information to criminally investigate or prosecute any alcohol or drug abuse patient.[facility] HospitalIn the event this information is protected by the Federal Confidentiality of Alcohol and Drug Abuse Patient Records regulations: The Federal rules restrict any use of the information to criminally investigate or prosecute any alcohol or drug abuse patient.[facility] HospitalIn the event this information is protected by the Federal Confidentiality of Alcohol and Drug Abuse Patient Records regulations: The Federal rules restrict any use of the information to criminally investigate or prosecute any alcohol or drug abuse patient.[facility] HospitalIn the event this information is protected by the Federal Confidentiality of Alcohol and Drug Abuse Patient Records regulations: The Federal rules restrict any use of the information to criminally investigate or prosecute any alcohol or drug abuse patient.[facility] HospitalIn the event this information is protected by the Federal Confidentiality of Alcohol and Drug Abuse Patient Records regulations: The Federal rules restrict any use of the information to criminally investigate or prosecute any alcohol or drug abuse patient.[facility] HospitalIn the event this information is protected by the Federal Confidentiality of Alcohol and Drug Abuse Patient Records regulations: The Federal rules restrict any use of the information to criminally investigate or prosecute any alcohol or drug abuse patient.[facility] HospitalIn the event this information is protected by the Federal Confidentiality of Alcohol and Drug Abuse Patient Records regulations: The Federal rules restrict any use of the information to criminally investigate or prosecute any alcohol or drug abuse patient.[facility] HospitalIn the event this information is protected by the Federal Confidentiality of Alcohol and Drug Abuse Patient Records regulations: The Federal rules restrict any use of the information to criminally investigate or prosecute any alcohol or drug abuse patient.[facility] HospitalIn the event this information is protected by the Federal Confidentiality of Alcohol and Drug Abuse Patient Records regulations: The Federal rules restrict any use of the information to criminally investigate or prosecute any alcohol or drug abuse patient.[facility] HospitalIn the event this information is protected by the Federal Confidentiality of Alcohol and Drug Abuse Patient Records regulations: The Federal rules restrict any use of the information to criminally investigate or prosecute any alcohol or drug abuse patient.[facility] HospitalIn the event this information is protected by the Federal Confidentiality of Alcohol and Drug Abuse Patient Records regulations: The Federal rules restrict any use of the information to criminally investigate or prosecute any alcohol or drug abuse patient.[facility] HospitalIn the event this information is protected by the Federal Confidentiality of Alcohol and Drug Abuse Patient Records regulations: The Federal rules restrict any use of the information to criminally investigate or prosecute any alcohol or drug abuse patient.[facility] HospitalIn the event this information is protected by the Federal Confidentiality of Alcohol and Drug Abuse Patient Records regulations: The Federal rules restrict any use of the information to criminally investigate or prosecute any alcohol or drug abuse patient.[facility] HospitalIn the event this information is protected by the Federal Confidentiality of Alcohol and Drug Abuse Patient Records regulations: The Federal rules restrict any use of the information to criminally investigate or prosecute any alcohol or drug abuse patient.[facility] HospitalIn the event this information is protected by the Federal Confidentiality of Alcohol and Drug Abuse Patient Records regulations: The Federal rules restrict any use of the information to criminally investigate or prosecute any alcohol or drug abuse patient.[facility] HospitalIn the event this information is protected by the Federal Confidentiality of Alcohol and Drug Abuse Patient Records regulations: The Federal rules restrict any use of the information to criminally investigate or prosecute any alcohol or drug abuse patient.[facility] HospitalIn the event this information is protected by the Federal Confidentiality of Alcohol and Drug Abuse Patient Records regulations: The Federal rules restrict any use of the information to criminally investigate or prosecute any alcohol or drug abuse patient.[facility] HospitalIn the event this information is protected by the Federal Confidentiality of Alcohol and Drug Abuse Patient Records regulations: The Federal rules restrict any use of the information to criminally investigate or prosecute any alcohol or drug abuse patient.[facility] HospitalIn the event this information is protected by the Federal Confidentiality of Alcohol and Drug Abuse Patient Records regulations: The Federal rules restrict any use of the information to criminally investigate or prosecute any alcohol or drug abuse patient.[facility] HospitalIn the event this information is protected by the Federal Confidentiality of Alcohol and Drug Abuse Patient Records regulations: The Federal rules restrict any use of the information to criminally investigate or prosecute any alcohol or drug abuse patient.[facility] HospitalIn the event this information is protected by the Federal Confidentiality of Alcohol and Drug Abuse Patient Records regulations: The Federal rules restrict any use of the information to criminally investigate or prosecute any alcohol or drug abuse patient.[facility] HospitalIn the event this information is protected by the Federal Confidentiality of Alcohol and Drug Abuse Patient Records regulations: The Federal rules restrict any use of the information to criminally investigate or prosecute any alcohol or drug abuse patient.[facility] HospitalIn the event this information is protected by the Federal Confidentiality of Alcohol and Drug Abuse Patient Records regulations: The Federal rules restrict any use of the information to criminally investigate or prosecute any alcohol or drug abuse patient.[facility] HospitalIn the event this information is protected by the Federal Confidentiality of Alcohol and Drug Abuse Patient Records regulations: The Federal rules restrict any use of the information to criminally investigate or prosecute any alcohol or drug abuse patient.[facility] HospitalIn the event this information is protected by the Federal Confidentiality of Alcohol and Drug Abuse Patient Records regulations: The Federal rules restrict any use of the information to criminally investigate or prosecute any alcohol or drug abuse patient.[facility] HospitalIn the event this information is protected by the Federal Confidentiality of Alcohol and Drug Abuse Patient Records regulations: The Federal rules restrict any use of the information to criminally investigate or prosecute any alcohol or drug abuse patient.[facility] HospitalIn the event this information is protected by the Federal Confidentiality of Alcohol and Drug Abuse Patient Records regulations: The Federal rules restrict any use of the information to criminally investigate or prosecute any alcohol or drug abuse patient.[facility] HospitalIn the event this information is protected by the Federal Confidentiality of Alcohol and Drug Abuse Patient Records regulations: The Federal rules restrict any use of the information to criminally investigate or prosecute any alcohol or drug abuse patient.[facility] HospitalIn the event this information is protected by the Federal Confidentiality of Alcohol and Drug Abuse Patient Records regulations: The Federal rules restrict any use of the information to criminally investigate or prosecute any alcohol or drug abuse patient.[facility] HospitalIn the event this information is protected by the Federal Confidentiality of Alcohol and Drug Abuse Patient Records regulations: The Federal rules restrict any use of the information to criminally investigate or prosecute any alcohol or drug abuse patient.[facility] HospitalIn the event this information is protected by the Federal Confidentiality of Alcohol and Drug Abuse Patient Records regulations: The Federal rules restrict any use of the information to criminally investigate or prosecute any alcohol or drug abuse patient.[facility] HospitalIn the event this information is protected by the Federal Confidentiality of Alcohol and Drug Abuse Patient Records regulations: The Federal rules restrict any use of the information to criminally investigate or prosecute any alcohol or drug abuse patient.[facility] HospitalIn the event this information is protected by the Federal Confidentiality of Alcohol and Drug Abuse Patient Records regulations: The Federal rules restrict any use of the information to criminally investigate or prosecute any alcohol or drug abuse patient.[facility] HospitalIn the event this information is protected by the Federal Confidentiality of Alcohol and Drug Abuse Patient Records regulations: The Federal rules restrict any use of the information to criminally investigate or prosecute any alcohol or drug abuse patient.[facility] HospitalIn the event this information is protected by the Federal Confidentiality of Alcohol and Drug Abuse Patient Records regulations: The Federal rules restrict any use of the information to criminally investigate or prosecute any alcohol or drug abuse patient.[facility] HospitalIn the event this information is protected by the Federal Confidentiality of Alcohol and Drug Abuse Patient Records regulations: The Federal rules restrict any use of the information to criminally investigate or prosecute any alcohol or drug abuse patient.[facility] HospitalIn the event this information is protected by the Federal Confidentiality of Alcohol and Drug Abuse Patient Records regulations: The Federal rules restrict any use of the information to criminally investigate or prosecute any alcohol or drug abuse patient.[facility] HospitalIn the event this information is protected by the Federal Confidentiality of Alcohol and Drug Abuse Patient Records regulations: The Federal rules restrict any use of the information to criminally investigate or prosecute any alcohol or drug abuse patient.[facility] HospitalIn the event this information is protected by the Federal Confidentiality of Alcohol and Drug Abuse Patient Records regulations: The Federal rules restrict any use of the information to criminally investigate or prosecute any alcohol or drug abuse patient.[facility] HospitalIn the event this information is protected by the Federal Confidentiality of Alcohol and Drug Abuse Patient Records regulations: The Federal rules restrict any use of the information to criminally investigate or prosecute any alcohol or drug abuse patient.[facility] HospitalIn the event this information is protected by the Federal Confidentiality of Alcohol and Drug Abuse Patient Records regulations: The Federal rules restrict any use of the information to criminally investigate or prosecute any alcohol or drug abuse patient.[facility] HospitalIn the event this information is protected by the Federal Confidentiality of Alcohol and Drug Abuse Patient Records regulations: The Federal rules restrict any use of the information to criminally investigate or prosecute any alcohol or drug abuse patient.[facility] HospitalIn the event this information is protected by the Federal Confidentiality of Alcohol and Drug Abuse Patient Records regulations: The Federal rules restrict any use of the information to criminally investigate or prosecute any alcohol or drug abuse patient.[facility] HospitalIn the event this information is protected by the Federal Confidentiality of Alcohol and Drug Abuse Patient Records regulations: The Federal rules restrict any use of the information to criminally investigate or prosecute any alcohol or drug abuse patient.[facility] HospitalIn the event this information is protected by the Federal Confidentiality of Alcohol and Drug Abuse Patient Records regulations: The Federal rules restrict any use of the information to criminally investigate or prosecute any alcohol or drug abuse patient.[facility] HospitalIn the event this information is protected by the Federal Confidentiality of Alcohol and Drug Abuse Patient Records regulations: The Federal rules restrict any use of the information to criminally investigate or prosecute any alcohol or drug abuse patient.[facility] HospitalIn the event this information is protected by the Federal Confidentiality of Alcohol and Drug Abuse Patient Records regulations: The Federal rules restrict any use of the information to criminally investigate or prosecute any alcohol or drug abuse patient.[facility] HospitalIn the event this information is protected by the Federal Confidentiality of Alcohol and Drug Abuse Patient Records regulations: The Federal rules restrict any use of the information to criminally investigate or prosecute any alcohol or drug abuse patient.[facility] HospitalIn the event this information is protected by the Federal Confidentiality of Alcohol and Drug Abuse Patient Records regulations: The Federal rules restrict any use of the information to criminally investigate or prosecute any alcohol or drug abuse patient.[facility] HospitalIn the event this information is protected by the Federal Confidentiality of Alcohol and Drug Abuse Patient Records regulations: The Federal rules restrict any use of the information to criminally investigate or prosecute any alcohol or drug abuse patient.[facility] HospitalIn the event this information is protected by the Federal Confidentiality of Alcohol and Drug Abuse Patient Records regulations: The Federal rules restrict any use of the information to criminally investigate or prosecute any alcohol or drug abuse patient.[facility] HospitalIn the event this information is protected by the Federal Confidentiality of Alcohol and Drug Abuse Patient Records regulations: The Federal rules restrict any use of the information to criminally investigate or prosecute any alcohol or drug abuse patient.[facility] HospitalIn the event this information is protected by the Federal Confidentiality of Alcohol and Drug Abuse Patient Records regulations: The Federal rules restrict any use of the information to criminally investigate or prosecute any alcohol or drug abuse patient.[facility] HospitalIn the event this information is protected by the Federal Confidentiality of Alcohol and Drug Abuse Patient Records regulations: The Federal rules restrict any use of the information to criminally investigate or prosecute any alcohol or drug abuse patient.[facility] HospitalIn the event this information is protected by the Federal Confidentiality of Alcohol and Drug Abuse Patient Records regulations: The Federal rules restrict any use of the information to criminally investigate or prosecute any alcohol or drug abuse patient.[facility] HospitalIn the event this information is protected by the Federal Confidentiality of Alcohol and Drug Abuse Patient Records regulations: The Federal rules restrict any use of the information to criminally investigate or prosecute any alcohol or drug abuse patient.[facility] HospitalIn the event this information is protected by the Federal Confidentiality of Alcohol and Drug Abuse Patient Records regulations: The Federal rules restrict any use of the information to criminally investigate or prosecute any alcohol or drug abuse patient.[facility] HospitalIn the event this information is protected by the Federal Confidentiality of Alcohol and Drug Abuse Patient Records regulations: The Federal rules restrict any use of the information to criminally investigate or prosecute any alcohol or drug abuse patient.[facility] HospitalIn the event this information is protected by the Federal Confidentiality of Alcohol and Drug Abuse Patient Records regulations: The Federal rules restrict any use of the information to criminally investigate or prosecute any alcohol or drug abuse patient.[facility] HospitalIn the event this information is protected by the Federal Confidentiality of Alcohol and Drug Abuse Patient Records regulations: The Federal rules restrict any use of the information to criminally investigate or prosecute any alcohol or drug abuse patient.[facility] HospitalIn the event this information is protected by the Federal Confidentiality of Alcohol and Drug Abuse Patient Records regulations: The Federal rules restrict any use of the information to criminally investigate or prosecute any alcohol or drug abuse patient.[facility] HospitalIn the event this information is protected by the Federal Confidentiality of Alcohol and Drug Abuse Patient Records regulations: The Federal rules restrict any use of the information to criminally investigate or prosecute any alcohol or drug abuse patient.[facility] HospitalIn the event this information is protected by the Federal Confidentiality of Alcohol and Drug Abuse Patient Records regulations: The Federal rules restrict any use of the information to criminally investigate or prosecute any alcohol or drug abuse patient.[facility] HospitalIn the event this information is protected by the Federal Confidentiality of Alcohol and Drug Abuse Patient Records regulations: The Federal rules restrict any use of the information to criminally investigate or prosecute any alcohol or drug abuse patient.[facility] HospitalIn the event this information is protected by the Federal Confidentiality of Alcohol and Drug Abuse Patient Records regulations: The Federal rules restrict any use of the information to criminally investigate or prosecute any alcohol or drug abuse patient.[facility] HospitalIn the event this information is protected by the Federal Confidentiality of Alcohol and Drug Abuse Patient Records regulations: The Federal rules restrict any use of the information to criminally investigate or prosecute any alcohol or drug abuse patient.[facility] HospitalIn the event this information is protected by the Federal Confidentiality of Alcohol and Drug Abuse Patient Records regulations: The Federal rules restrict any use of the information to criminally investigate or prosecute any alcohol or drug abuse patient.[facility] HospitalIn the event this information is protected by the Federal Confidentiality of Alcohol and Drug Abuse Patient Records regulations: The Federal rules restrict any use of the information to criminally investigate or prosecute any alcohol or drug abuse patient.[facility] HospitalIn the event this information is protected by the Federal Confidentiality of Alcohol and Drug Abuse Patient Records regulations: The Federal rules restrict any use of the information to criminally investigate or prosecute any alcohol or drug abuse patient.[facility] HospitalIn the event this information is protected by the Federal Confidentiality of Alcohol and Drug Abuse Patient Records regulations: The Federal rules restrict any use of the information to criminally investigate or prosecute any alcohol or drug abuse patient.[facility] HospitalIn the event this information is protected by the Federal Confidentiality of Alcohol and Drug Abuse Patient Records regulations: The Federal rules restrict any use of the information to criminally investigate or prosecute any alcohol or drug abuse patient.[facility] HospitalIn the event this information is protected by the Federal Confidentiality of Alcohol and Drug Abuse Patient Records regulations: The Federal rules restrict any use of the information to criminally investigate or prosecute any alcohol or drug abuse patient.[facility] HospitalIn the event this information is protected by the Federal Confidentiality of Alcohol and Drug Abuse Patient Records regulations: The Federal rules restrict any use of the information to criminally investigate or prosecute any alcohol or drug abuse patient.[facility] HospitalIn the event this information is protected by the Federal Confidentiality of Alcohol and Drug Abuse Patient Records regulations: The Federal rules restrict any use of the information to criminally investigate or prosecute any alcohol or drug abuse patient.[facility] HospitalIn the event this information is protected by the Federal Confidentiality of Alcohol and Drug Abuse Patient Records regulations: The Federal rules restrict any use of the information to criminally investigate or prosecute any alcohol or drug abuse patient.[facility] HospitalIn the event this information is protected by the Federal Confidentiality of Alcohol and Drug Abuse Patient Records regulations: The Federal rules restrict any use of the information to criminally investigate or prosecute any alcohol or drug abuse patient.[facility] HospitalIn the event this information is protected by the Federal Confidentiality of Alcohol and Drug Abuse Patient Records regulations: The Federal rules restrict any use of the information to criminally investigate or prosecute any alcohol or drug abuse patient.[facility] HospitalIn the event this information is protected by the Federal Confidentiality of Alcohol and Drug Abuse Patient Records regulations: The Federal rules restrict any use of the information to criminally investigate or prosecute any alcohol or drug abuse patient.[facility] HospitalIn the event this information is protected by the Federal Confidentiality of Alcohol and Drug Abuse Patient Records regulations: The Federal rules restrict any use of the information to criminally investigate or prosecute any alcohol or drug abuse patient.[facility] HospitalIn the event this information is protected by the Federal Confidentiality of Alcohol and Drug Abuse Patient Records regulations: The Federal rules restrict any use of the information to criminally investigate or prosecute any alcohol or drug abuse patient.[facility] HospitalIn the event this information is protected by the Federal Confidentiality of Alcohol and Drug Abuse Patient Records regulations: The Federal rules restrict any use of the information to criminally investigate or prosecute any alcohol or drug abuse patient.[facility] HospitalIn the event this information is protected by the Federal Confidentiality of Alcohol and Drug Abuse Patient Records regulations: The Federal rules restrict any use of the information to criminally investigate or prosecute any alcohol or drug abuse patient.[facility] HospitalIn the event this information is protected by the Federal Confidentiality of Alcohol and Drug Abuse Patient Records regulations: The Federal rules restrict any use of the information to criminally investigate or prosecute any alcohol or drug abuse patient.[facility] HospitalIn the event this information is protected by the Federal Confidentiality of Alcohol and Drug Abuse Patient Records regulations: The Federal rules restrict any use of the information to criminally investigate or prosecute any alcohol or drug abuse patient.[facility] HospitalIn the event this information is protected by the Federal Confidentiality of Alcohol and Drug Abuse Patient Records regulations: The Federal rules restrict any use of the information to criminally investigate or prosecute any alcohol or drug abuse patient.[facility] HospitalIn the event this information is protected by the Federal Confidentiality of Alcohol and Drug Abuse Patient Records regulations: The Federal rules restrict any use of the information to criminally investigate or prosecute any alcohol or drug abuse patient.[facility] HospitalIn the event this information is protected by the Federal Confidentiality of Alcohol and Drug Abuse Patient Records regulations: The Federal rules restrict any use of the information to criminally investigate or prosecute any alcohol or drug abuse patient.[facility] HospitalIn the event this information is protected by the Federal Confidentiality of Alcohol and Drug Abuse Patient Records regulations: The Federal rules restrict any use of the information to criminally investigate or prosecute any alcohol or drug abuse patient.[facility] HospitalIn the event this information is protected by the Federal Confidentiality of Alcohol and Drug Abuse Patient Records regulations: The Federal rules restrict any use of the information to criminally investigate or prosecute any alcohol or drug abuse patient.[facility] HospitalIn the event this information is protected by the Federal Confidentiality of Alcohol and Drug Abuse Patient Records regulations: The Federal rules restrict any use of the information to criminally investigate or prosecute any alcohol or drug abuse patient.[facility] HospitalIn the event this information is protected by the Federal Confidentiality of Alcohol and Drug Abuse Patient Records regulations: The Federal rules restrict any use of the information to criminally investigate or prosecute any alcohol or drug abuse patient.[facility] HospitalIn the event this information is protected by the Federal Confidentiality of Alcohol and Drug Abuse Patient Records regulations: The Federal rules restrict any use of the information to criminally investigate or prosecute any alcohol or drug abuse patient.[facility] HospitalIn the event this information is protected by the Federal Confidentiality of Alcohol and Drug Abuse Patient Records regulations: The Federal rules restrict any use of the information to criminally investigate or prosecute any alcohol or drug abuse patient.[facility] HospitalIn the event this information is protected by the Federal Confidentiality of Alcohol and Drug Abuse Patient Records regulations: The Federal rules restrict any use of the information to criminally investigate or prosecute any alcohol or drug abuse patient.[facility] HospitalIn the event this information is protected by the Federal Confidentiality of Alcohol and Drug Abuse Patient Records regulations: The Federal rules restrict any use of the information to criminally investigate or prosecute any alcohol or drug abuse patient.[facility] HospitalIn the event this information is protected by the Federal Confidentiality of Alcohol and Drug Abuse Patient Records regulations: The Federal rules restrict any use of the information to criminally investigate or prosecute any alcohol or drug abuse patient.[facility] HospitalIn the event this information is protected by the Federal Confidentiality of Alcohol and Drug Abuse Patient Records regulations: The Federal rules restrict any use of the information to criminally investigate or prosecute any alcohol or drug abuse patient.[facility] HospitalIn the event this information is protected by the Federal Confidentiality of Alcohol and Drug Abuse Patient Records regulations: The Federal rules restrict any use of the information to criminally investigate or prosecute any alcohol or drug abuse patient.[facility] HospitalIn the event this information is protected by the Federal Confidentiality of Alcohol and Drug Abuse Patient Records regulations: The Federal rules restrict any use of the information to criminally investigate or prosecute any alcohol or drug abuse patient.[facility] HospitalIn the event this information is protected by the Federal Confidentiality of Alcohol and Drug Abuse Patient Records regulations: The Federal rules restrict any use of the information to criminally investigate or prosecute any alcohol or drug abuse patient.[facility] HospitalIn the event this information is protected by the Federal Confidentiality of Alcohol and Drug Abuse Patient Records regulations: The Federal rules restrict any use of the information to criminally investigate or prosecute any alcohol or drug abuse patient.[facility] HospitalIn the event this information is protected by the Federal Confidentiality of Alcohol and Drug Abuse Patient Records regulations: The Federal rules restrict any use of the information to criminally investigate or prosecute any alcohol or drug abuse patient.[facility] HospitalIn the event this information is protected by the Federal Confidentiality of Alcohol and Drug Abuse Patient Records regulations: The Federal rules restrict any use of the information to criminally investigate or prosecute any alcohol or drug abuse patient.[facility] HospitalIn the event this information is protected by the Federal Confidentiality of Alcohol and Drug Abuse Patient Records regulations: The Federal rules restrict any use of the information to criminally investigate or prosecute any alcohol or drug abuse patient.[facility] HospitalIn the event this information is protected by the Federal Confidentiality of Alcohol and Drug Abuse Patient Records regulations: The Federal rules restrict any use of the information to criminally investigate or prosecute any alcohol or drug abuse patient.[facility] HospitalIn the event this information is protected by the Federal Confidentiality of Alcohol and Drug Abuse Patient Records regulations: The Federal rules restrict any use of the information to criminally investigate or prosecute any alcohol or drug abuse patient.[facility] HospitalIn the event this information is protected by the Federal Confidentiality of Alcohol and Drug Abuse Patient Records regulations: The Federal rules restrict any use of the information to criminally investigate or prosecute any alcohol or drug abuse patient.[facility] HospitalIn the event this information is protected by the Federal Confidentiality of Alcohol and Drug Abuse Patient Records regulations: The Federal rules restrict any use of the information to criminally investigate or prosecute any alcohol or drug abuse patient.[facility] HospitalIn the event this information is protected by the Federal Confidentiality of Alcohol and Drug Abuse Patient Records regulations: The Federal rules restrict any use of the information to criminally investigate or prosecute any alcohol or drug abuse patient.[facility] HospitalIn the event this information is protected by the Federal Confidentiality of Alcohol and Drug Abuse Patient Records regulations: The Federal rules restrict any use of the information to criminally investigate or prosecute any alcohol or drug abuse patient.[facility] HospitalIn the event this information is protected by the Federal Confidentiality of Alcohol and Drug Abuse Patient Records regulations: The Federal rules restrict any use of the information to criminally investigate or prosecute any alcohol or drug abuse patient.[facility] HospitalIn the event this information is protected by the Federal Confidentiality of Alcohol and Drug Abuse Patient Records regulations: The Federal rules restrict any use of the information to criminally investigate or prosecute any alcohol or drug abuse patient.[facility] HospitalIn the event this information is protected by the Federal Confidentiality of Alcohol and Drug Abuse Patient Records regulations: The Federal rules restrict any use of the information to criminally investigate or prosecute any alcohol or drug abuse patient.[facility] HospitalIn the event this information is protected by the Federal Confidentiality of Alcohol and Drug Abuse Patient Records regulations: The Federal rules restrict any use of the information to criminally investigate or prosecute any alcohol or drug abuse patient.[facility] HospitalIn the event this information is protected by the Federal Confidentiality of Alcohol and Drug Abuse Patient Records regulations: The Federal rules restrict any use of the information to criminally investigate or prosecute any alcohol or drug abuse patient.[facility] HospitalIn the event this information is protected by the Federal Confidentiality of Alcohol and Drug Abuse Patient Records regulations: The Federal rules restrict any use of the information to criminally investigate or prosecute any alcohol or drug abuse patient.[facility] HospitalIn the event this information is protected by the Federal Confidentiality of Alcohol and Drug Abuse Patient Records regulations: The Federal rules restrict any use of the information to criminally investigate or prosecute any alcohol or drug abuse patient.[facility] HospitalIn the event this information is protected by the Federal Confidentiality of Alcohol and Drug Abuse Patient Records regulations: The Federal rules restrict any use of the information to criminally investigate or prosecute any alcohol or drug abuse patient.[facility] HospitalIn the event this information is protected by the Federal Confidentiality of Alcohol and Drug Abuse Patient Records regulations: The Federal rules restrict any use of the information to criminally investigate or prosecute any alcohol or drug abuse patient.[facility] HospitalIn the event this information is protected by the Federal Confidentiality of Alcohol and Drug Abuse Patient Records regulations: The Federal rules restrict any use of the information to criminally investigate or prosecute any alcohol or drug abuse patient.[facility] HospitalIn the event this information is protected by the Federal Confidentiality of Alcohol and Drug Abuse Patient Records regulations: The Federal rules restrict any use of the information to criminally investigate or prosecute any alcohol or drug abuse patient.[facility] HospitalIn the event this information is protected by the Federal Confidentiality of Alcohol and Drug Abuse Patient Records regulations: The Federal rules restrict any use of the information to criminally investigate or prosecute any alcohol or drug abuse patient.[facility] HospitalIn the event this information is protected by the Federal Confidentiality of Alcohol and Drug Abuse Patient Records regulations: The Federal rules restrict any use of the information to criminally investigate or prosecute any alcohol or drug abuse patient.[facility] HospitalIn the event this information is protected by the Federal Confidentiality of Alcohol and Drug Abuse Patient Records regulations: The Federal rules restrict any use of the information to criminally investigate or prosecute any alcohol or drug abuse patient.[facility] HospitalIn the event this information is protected by the Federal Confidentiality of Alcohol and Drug Abuse Patient Records regulations: The Federal rules restrict any use of the information to criminally investigate or prosecute any alcohol or drug abuse patient.[facility] HospitalIn the event this information is protected by the Federal Confidentiality of Alcohol and Drug Abuse Patient Records regulations: The Federal rules restrict any use of the information to criminally investigate or prosecute any alcohol or drug abuse patient.[facility] HospitalIn the event this information is protected by the Federal Confidentiality of Alcohol and Drug Abuse Patient Records regulations: The Federal rules restrict any use of the information to criminally investigate or prosecute any alcohol or drug abuse patient.[facility] Reason for Visit (unrecogniz ed section [...] STEM W/O CONTRAST MATERIAL Stas Mora MD [address] [place] [address] [place] [address] Referral ID Status Reason Start Date Expiration Date V isits Requested Visits Authorized [id number] Closed Auto-Generat ed Referral Patient Cleared - [...] behavioral, psychotic, or mood disturbance or anxiety ([facility]) Procedures CONSULT TO GERIATRICS OFFICE/OUTPATIENT [facility] 60 MINUTES Stas Mora MD [address] [place] [address] Referral ID Status Reason Start Date Expiration Date V isits Requested Visits Authorized [id number] Closed PCP Requested Referral 04/25/2024 04/25/2025 1 [...] Care Teams (unrecognized sec tion and content) Air Condition[employer] Sheet Metal Installer Relationship Specialty Start Date End Date Stas Mora MD [address] [place] [address] PCP - General 08/02/08, Pharmacist [address] [place] [address] Pharmacist Pharmacy 10/19/19 Air Conditioning Sheet Metal Installer Relationship Specialty Start Date End Date Stas Mora MD [address] [place] [address] PCP - General 08/02/08, Pharmacist [id number] [place] [address] Pharmacist Pharmacy 10/19/19 Air Conditioning Sheet Metal Installer Relationship Specialty Start Date End Date Stas Mora MD [address] [place] [address] PCP - General 08/02/08, Pharmacist [address] [place] [address] Pharmacist Pharmacy 10/19/19 Air Conditioning Sheet Metal Installer Relationship Specialty Start Date End Date Stas Mora MD [address] [place] [address] PCP - General 08/02/08, Pharmacist [phone] [place] [address], [place] [address] Pharmacist Pharmacy 10/19/19 Air Conditioning Sheet Metal Installer Relationship Specialty Start Date End Date Stas Mora MD [address] [place] [address] PCP - General 08/02/08, Pharmacist [address] [place] [address] Pharmacist Pharmacy 10/19/19 Air Conditioning Sheet Metal Installer Relationship Specialty Start Date End Date Stas Mora MD [address] [place] [address] PCP - General 08/02/08, Pharmacist [phone] [place] [address], [place] [address] Pharmacist Pharmacy 10/19/19 Air Conditioning Sheet Metal Installer Relationship Specialty Start Date End Date Stas Mora MD [address] [place] [address] PCP - General 08/02/08, Pharmacist [id number] [place] [address] Pharmacist Pharmacy 10/19/19 Air Conditioning Sheet Metal Installer Relationship Specialty Start Date End Date Stas Mora MD [address] [place] [address] PCP - General 08/02/08, Pharmacist [address] [place] [address] Pharmacist Pharmacy 10/19/19 Air Conditioning Sheet Metal Installer Relationship Specialty Start Date End Date Stas Mora MD [address] [place] [address] PCP - General 08/02/08, Pharmacist [phone] [place] [address], [place] [address] Pharmacist Pharmacy 10/19/19 Air Conditioning Sheet Metal Installer Relationship Specialty Start Date End Date Stas Mora MD [address] [place] [address] PCP - General 08/02/08, Pharmacist [phone] [place] [address], [place] [address] Pharmacist Pharmacy 10/19/19 Air Conditioning Sheet Metal Installer Relationship Specialty Start Date End Date Stas Mora MD [address] [place] [address] PCP - General 08/02/08, Pharmacist [phone] [place] [address], [place] [address] Pharmacist Pharmacy 10/19/19 Air Conditioning Sheet Metal Installer Relationship Specialty Start Date End Date Stas Mora MD [address] [place] [address] PCP - General 08/02/08, Pharmacist [phone] [place] [address], [place] [address] Pharmacist Pharmacy 10/19/19 Air Conditioning Sheet Metal Installer Relationship Specialty Start Date End Date Stas Mora MD [address] [facility] [address] PCP - General 08/02/08, Pharmacist [id number] [place] [address] Pharmacist Pharmacy 10/19/19 Air Conditioning Sheet Metal Installer Relationship Specialty Start Date End Date Stas Mora MD [address] [place] [address] PCP - General 08/02/08, Pharmacist [id number] [place] [address] Pharmacist Pharmacy 10/19/19 Air Conditioning Sheet Metal Installer Relationship Specialty Start Date End Date Stas Mora MD [address] [place] [address] PCP - General 08/02/08, Pharmacist [id number] [place] [address] Pharmacist Pharmacy 10/19/19 Air Conditioning Sheet Metal Installer Relationship Specialty Start Date End Date Stas Mora MD [address] [place] [address] PCP - General 08/02/08, Pharmacist [phone] [place] [address], [place] [address] Pharmacist Pharmacy 10/19/19 Air Conditioning Sheet Metal Installer Relationship Specialty Start Date End Date Stas Mora MD [address] [place] [address] PCP - General 08/02/08, Pharmacist [id number] [place] [address] Pharmacist Pharmacy 10/19/19 Air Conditioning Sheet Metal Installer Relationship Specialty Start Date End Date Stas Mora MD [address] [place] [address] PCP - General 08/02/08, Pharmacist [id number] [place] [address] Pharmacist Pharmacy 10/19/19 Air Conditioning Sheet Metal Installer Relationship Specialty Start Date End Date Stas Mora MD [address] [place] [address] PCP - General 08/02/08, Pharmacist [address] [place] [address] Pharmacist Pharmacy 10/19/19 Air Conditioning Sheet Metal Installer Relationship Specialty Start Date End Date Stas Mora MD [address] [place] [address] PCP - General 08/02/08, Pharmacist [address] [place] [address] Pharmacist Pharmacy 10/19/19 Air Conditioning Sheet Metal Installer Relationship Specialty Start Date End Date Stas Mora MD [address] [place] [address] PCP - General 08/02/08, Pharmacist [address] [place] [address] Pharmacist Pharmacy 10/19/19 Team Status: Active Member Role Status Dates Dr. Stas Mora MD Family Provider Active Dr. Stas Mora MD Primary Care Provider Active Team Status: Inactive Member Role Status Dates Dr. Stas Mora MD Primary Care Provider Active Dr. Brian Cunningham DO Emergency Provider Active Air Conditioning Sheet Metal Installer Relationship Specialty Start Date End Date Stas Mora MD [address] [place] [address] PCP - General 08/02/08, Pharmacist [address] [place] [address] Pharmacist Pharmacy 10/19/19 Air Conditioning Sheet Metal Installer Relationship Specialty Start Date End Date Stas Mora MD [address] [place] [address] PCP - General 08/02/08, Pharmacist [address] [place] [address] Pharmacist Pharmacy 10/19/19 Air Conditioning Sheet Metal Installer Relationship Specialty Start Date End Date Stas Mora MD [address] [place] [address] PCP - General 08/02/08, Pharmacist [address] [place] [address] Pharmacist Pharmacy 10/19/19 Air Conditioning Sheet Metal Installer Relationship Specialty Start Date End Date Stas Mora MD [address] [place] [address] PCP - General 08/02/08, Pharmacist [address] [place] [address] Pharmacist Pharmacy 10/19/19 Air Conditioning Sheet Metal Installer Relationship Specialty Start Date End Date Stas Mora MD [address] [place] [address] PCP - General 08/02/08, Pharmacist [address] [place] [address] Pharmacist Pharmacy 10/19/19 Air Conditioning Sheet Metal Installer Relationship Specialty Start Date End Date Stas Mora MD [address] [place] [address] PCP - General 08/02/08, Pharmacist [address] [place] [address] Pharmacist Pharmacy 10/19/19 Air Conditioning Sheet Metal Installer Relationship Specialty Start Date End Date Stas Mora MD [address] [place] [address] PCP - General 08/02/08, Pharmacist [address] [place] [address] Pharmacist Pharmacy 10/19/19 Air Conditioning Sheet Metal Installer Relationship Specialty Start Date End Date Stas Mora MD [address] [place] [address] PCP - General 08/02/08, Pharmacist [address] [place] [address] Pharmacist Pharmacy 10/19/19 Air Conditioning Sheet Metal Installer Relationship Specialty Start Date End Date Stas Mora MD [address] [place] [address] PCP - General 08/02/08, Pharmacist [address] [place] [address] Pharmacist Pharmacy 10/19/19 Air Conditioning Sheet Metal Installer Relationship Specialty Start Date End Date Stas Mora MD [address] [place] [address] PCP - General 08/02/08, Pharmacist [address] [place] [address] Pharmacist Pharmacy 10/19/19 Air Conditioning Sheet Metal Installer Relationship Specialty Start Date End Date Stas Mora MD [address] [place] [address] PCP - General 08/02/08, Pharmacist [address] [place] [address] Pharmacist Pharmacy 10/19/19 Air Conditioning Sheet Metal Installer Relationship Specialty Start Date End Date Stas Mora MD [address] [place] [address] PCP - General 08/02/08, Pharmacist [address] [place] [address] Pharmacist Pharmacy 10/19/19 Air Conditioning Sheet Metal Installer Relationship Specialty Start Date End Date Stas Mora MD [address] [place] [address] PCP - General 08/02/08, Pharmacist [address] [place] [address] Pharmacist Pharmacy 10/19/19 Air Conditioning Sheet Metal Installer Relationship Specialty Start Date End Date Stas Mora MD [address] [place] [address] PCP - General 08/02/08, Pharmacist [address] [place] [address] Pharmacist Pharmacy 10/19/19 Air Conditioning Sheet Metal Installer Relationship Specialty Start Date End Date Stas Mora MD [address] [place] [address] PCP - General 08/02/08, Pharmacist [address] [place] [address] Pharmacist Pharmacy 10/19/19 Air Conditioning Sheet Metal Installer Relationship Specialty Start Date End Date Stas Mora MD [address] [place] [address] PCP - General 08/02/08, Pharmacist [address] [place] [address] Pharmacist Pharmacy 10/19/19 Air Conditioning Sheet Metal Installer Relationship Specialty Start Date End Date Stas Mora MD [address] [place] [address] PCP - General 08/02/08, Pharmacist [address] [place] [address] Pharmacist Pharmacy 10/19/19 Air Conditioning Sheet Metal Installer Relationship Specialty Start Date End Date Stas Mora MD [address] [place] [address] PCP - General 08/02/08, Pharmacist [phone] [place] [address] Pharmacist Pharmacy 10/19/19 Air Conditioning Sheet Metal Installer Relationship Specialty Start Date End Date Stas Mora MD [address] [place] [address] PCP - General 08/02/08, Pharmacist [address] [place] [address] Pharmacist Pharmacy 10/19/19 Air Conditioning Sheet Metal Installer Relationship Specialty Start Date End Date Stas Mora MD [address] [place] [address] PCP - General 08/02/08, Pharmacist [address] [place] [address] Pharmacist Pharmacy 10/19/19 Air Conditioning Sheet Metal Installer Relationship Specialty Start Date End Date Stas Mora MD [address] [place] [address] PCP - General 08/02/08, Pharmacist [address] [place] [address] Pharmacist Pharmacy 10/19/19 Air Conditioning Sheet Metal Installer Relationship Specialty Start Date End Date Stas Mora MD [address] [place] [address] PCP - General 08/02/08, Pharmacist [address] [place] [address] Pharmacist Pharmacy 10/19/19 Jenna Fitzpatrick APRN.[facility] [address] [place] [address] Sales Manager [facility] 02/28/24 Air Conditioning Sheet Metal Installer Relationship Specialty Start Date End Date Stas Mora MD [address] [place] [address] PCP - General 08/02/08, Pharmacist [address] [place] [address] Pharmacist Pharmacy 10/19/19 Jenna Fitzpatrick APRN.REPORT ANALYST [address] [place] [address] Sales Manager [facility] 02/28/24 Elvis Kearney APRN.REPORT ANALYST [address] [place] [address] Sales Manager [employer] [facility] 03/08/24 Air Conditioning Sheet Metal Installer Relationship Specialty Start Date End Date Stas Mora MD [address] [place] [address] PCP - General 08/02/08, Pharmacist [address] [place] [address] Pharmacist Pharmacy 10/19/19 Jenna Fitzpatrick APRN.REPORT ANALYST [address] [place] [address] Sales Manager [employer] [facility] 02/28/24 Elvis Kearney APRN.REPORT ANALYST [address] [place] [address] Sales Manager [facility] 03/08/24 Air Conditioning Sheet Metal Installer Relationship Specialty Start Date End Date Stas Mora MD [address] [place] [address] PCP - General 08/02/08, Pharmacist [address] [place] [address] Pharmacist Pharmacy 10/19/19 Jenna Fitzpatrick APRN.REPORT ANALYST [address] [place] [address] Sales Manager [facility] 02/28/24 Elvis Kearney APRN.REPORT ANALYST [address] [facility] [place] [address] Sales Manager [facility] 03/08/24 Air Conditioning Sheet Metal Installer Relationship Specialty Start Date End Date Stas Mora MD [address] [place] [address] PCP - General 08/02/08, Pharmacist [address] [place] [address] Pharmacist Pharmacy 10/19/19 Jenna Fitzpatrick SUPERVISOR AGENCY APPOINTMENTS.REPORT ANALYST [address] [place] [address] Sales Manager [facility] 02/28/24 Elvis Kearney APRN.REPORT ANALYST [address] [place] [address] Sales Manager [employer] [facility] 03/08/24 Air Conditioning Sheet Metal Installer Relationship Specialty Start Date End Date Stas Mora MD [address] [place] [address] PCP - General 08/02/08, Pharmacist [address] [place] [address] Pharmacist Pharmacy 10/19/19 Jenna Fitzpatrick, SUPERVISOR AGENCY APPOINTMENTS.REPORT ANALYST [address] [place] [address] Sales Manager [facility] 02/28/24 Elvis Kearney APRN.REPORT ANALYST [address] [place] [address] Sales Manager [facility] 03/08/24 Air Conditioning Sheet Metal Installer Relationship Specialty Start Date End Date Stas Mora MD [address] [place] [address] PCP - General 08/02/08, Pharmacist [address] [place] [address] Pharmacist Pharmacy 10/19/19 Jenna Fitzpatrick APRN.REPORT ANALYST [address] [place] [address] Sales Manager [employer] [facility] 02/28/24 Elvis Kearney APRN.REPORT ANALYST [address] [place] [address] Sales Manager [facility] 03/08/24 Air Conditioning Sheet Metal Installer Relationship Specialty Start Date End Date Stas Mora MD [address] [place] [address] PCP - General 08/02/08, Pharmacist [address] [place] [address] Pharmacist Pharmacy 10/19/19 Jenna Fitzpatrick APRN.REPORT ANALYST [address] [place] [address] Sales Manager [facility] 02/28/24 Elvis Kearney SUPERVISOR AGENCY APPOINTMENTS.REPORT ANALYST [address] [place] [address] Sales Manager [facility] 03/08/24 Air Conditioning Sheet Metal Installer Relationship Specialty Start Date End Date Stas Mora MD [address] [place] [address] PCP - General 08/02/08, Pharmacist [address] [place] [address] Pharmacist Pharmacy 10/19/19 Jenna Fitzpatrick APRN.REPORT ANALYST [address] [place] [address] Sales Manager [facility] 02/28/24 Elvis Kearney APRN.REPORT ANALYST [address] [place] [address] Sales Manager [facility] 03/08/24 Air Conditioning Sheet Metal Installer Relationship Specialty Start Date End Date Stas Mora MD [address] [place] [address] PCP - General 08/02/08, Pharmacist [address] [place] [address] Pharmacist Pharmacy 10/19/19 Jenna Fitzpatrick APRN.REPORT ANALYST [address] [place] [address] Sales Manager [employer] [facility] Medicine 02/28/24 Elvis Kearney APRN.REPORT ANALYST [address] [place] [address] Sales Manager [facility] 03/08/24 Air Conditioning Sheet Metal Installer Relationship Specialty Start Date End Date Stas Mora MD [address] [place] [address] PCP - General 08/02/08, Pharmacist [address] [place] [address] Pharmacist Pharmacy 10/19/19 Jenna Fitzpatrick APRN.REPORT ANALYST [address] [place] [address] Sales Manager [facility] 02/28/24 Elvis Kearney APRN.REPORT ANALYST [address] [place] [address] Sales Manager [facility] 03/08/24 Air Conditioning Sheet Metal Installer Relationship Specialty Start Date End Date Stas Mora MD [address] [place] [address] PCP - General 08/02/08, Pharmacist [address] [place] [address] Pharmacist Pharmacy 10/19/19 Jenna Fitzpatrick, SUPERVISOR AGENCY APPOINTMENTS.REPORT ANALYST [address] [place] [address] Sales Manager [facility] 02/28/24 Elvis Kearney SUPERVISOR AGENCY APPOINTMENTS.REPORT ANALYST [address] [place] [address] Sales Manager [facility] 03/08/24 Air Conditioning Sheet Metal Installer Relationship Specialty Start Date End Date Stas Mora MD [address] [place] [address] PCP - General 08/02/08, Pharmacist [address] [place] [address] Pharmacist Pharmacy 10/19/19 Jenna Fitzpatrick, SUPERVISOR AGENCY APPOINTMENTS.REPORT ANALYST [address] [place] [address] Sales Manager [facility] 02/28/24 Elvis Kearney SUPERVISOR AGENCY APPOINTMENTS.REPORT ANALYST [address] [place] [address] Sales Manager [facility] 03/08/24 Air Conditioning Sheet Metal Installer Relationship Specialty Start Date End Date Stas Mora MD [address] [place] [address] PCP - General 08/02/08, Pharmacist [address] [place] [address] Pharmacist Pharmacy 10/19/19 Jenna Fitzpatrick APRN.REPORT ANALYST [address] [place] [address] Sales Manager [facility] 02/28/24 Elvis Kearney APRN.REPORT ANALYST [address] [place] [address] Sales Manager [facility] 03/08/24 Air Conditioning Sheet Metal Installer Relationship Specialty Start Date End Date Stas Mora MD [address] [place] [address] PCP - General 08/02/08, Pharmacist [address] [place] [address] Pharmacist Pharmacy 10/19/19 Jenna Fitzpatrick APRN.REPORT ANALYST [address] [place] [address] Sales Manager [facility] 02/28/24 Elvis Kearney APRN.REPORT ANALYST [address] [place] [address] Sales Manager [employer] [facility] 03/08/24 Air Conditioning Sheet Metal Installer Relationship Specialty Start Date End Date Stas Mora MD [address] [place] [address] PCP - General 08/02/08, Pharmacist [address] [place] [address] Pharmacist Pharmacy 10/19/19 Jenna Fitzpatrick APRN.REPORT ANALYST [address] [place] [address] Sales Manager [facility] 02/28/24 Elvis Kearney APRN.REPORT ANALYST [address] [place] [address] Sales Manager [facility] 03/08/24 Air Conditioning Sheet Metal Installer Relationship Specialty Start Date End Date Stas Mora MD [address] [place] [address] PCP - General 08/02/08, Pharmacist [address] [place] [address] Pharmacist Pharmacy 10/19/19 Jenna Fitzpatrick SUPERVISOR AGENCY APPOINTMENTS.REPORT ANALYST [address] [place] [address] Sales Manager [employer] [facility] Medicine 02/28/24 Elvis Kearney APRN.REPORT ANALYST [address] [place] [address] Sales Manager [employer] [facility] 03/08/24 Air Conditioning Sheet Metal Installer Relationship Specialty Start Date End Date Stas Mora MD [address] [place] [address] PCP - General 08/02/08, Pharmacist [address] [place] [address] Pharmacist Pharmacy 10/19/19 Elvis Kearney SUPERVISOR AGENCY APPOINTMENTS.REPORT ANALYST [address] [place] [address] Sales Manager [employer] [facility] 03/08/24 Air Conditioning Sheet Metal Installer Relationship Specialty Start Date End Date Stas Mora MD [address] [place] [address] PCP - General 08/02/08, Pharmacist [address] [place] [address] Pharmacist Pharmacy 10/19/19 Caio, Elvis, SUPERVISOR AGENCY APPOINTMENTS.REPORT ANALYST [address] [place] [address] Sales Manager [facility] 03/08/24 Team Status: Active Member Role Status [...] Provider Active Start: September 04, 2024 Dr. Indejrit Gillespie MD Emergency Provider Active S tart: [...] Provider Active Sta rt: September 06, 2024 Air Conditioning Sheet Metal Installer Relationship Specialty Start Date End Date Stas Mora MD [address] [place], [place] [id number] PCP - General 08/02/08 13, Pharmacist [address] [place], [place] [address] Pharmacist Pharmacy 10/19/19 Elvis Kearney APRN.REPORT ANALYST [address] [facility], [place] [address] Sales Manager [facility] 03/08/24 Team Status: Active Member [...] End: September 07, 2024 Halina Carmona NP, HEATER WORKER-C Attending Provider Active Start: September 07, 2024 [...] 2024 End: September 08, 2024 Halina Carmona HEATER WORKER, HEATER WORKER-C Attending Provider Active Start: September 08, 2024 [...] 2024 End: September 30, 2024 Halina Carmona HEATER WORKER, HEATER WORKER-C Attending Provider Active Start: September 30, 2024 [...] End: October 20, 2024 Halina Carmona NP, HEATER WORKER-C Attending Provider Active Start: October 20, 2024 [...] End: September 30, 2024 Halina Carmona NP, HEATER WORKER-C Attending Provider Active Start: September 30, 2024 [...] 2024 End: October 20, 2024 Halina Carmona HEATER WORKER, HEATER WORKER-C Attending Provider Active Start: October 20, 2024 [...] Care Provider Active Start: September 28, 2024 End: September 28, 2024 Shayy GAMA MD Attending Provider Active Start: September 28, 2024 End: September 28, 2024 Team Status: Active Member Role/Relationship Status Dates Dr. Stas Mora MD Primary Care Provider Active Start: November 23, 2024 Shayy GAMA MD Attending Provider Active Start: November 23, 2024 Team Status: Inactive Member Role/Relationship Status Dates Dr. Stas Mora MD Primary Care Provider Active Start: September 26, 2024 End: September 26, 2024 Shayy GAMA MD Attending Provider Active Start: September 26, 2024 End: September 26, 2024 Goals (unrecognized section and content) Goals [...] BE BASED ON THE PRIMARY CLINICAL RECORDS. [email or web address] provides no warranty or guarantee of the accuracy or completeness of information in this document.
--- OUTSIDE RECORDS SUMMARY | 2024-11-25 03:50 | XMS RPT_ITS | CCD ---
Author Organization [facility] [place] [facility] Care Team Providers Care Grain Packer Name Role Phone TEE, DARRELL E Unavailable [...] Attending Unavailable Amari MORELOS.Jenna STATON Unavailable Caio WHITE WORK CLEANER.SUPERVISOR KENNEL, Elvis Unavailable AMELIA, LUCIANA C Referring Unavailable ELDERBROCK, STAS D Primary Care Unavailable Tannhof WHITE WORK CLEANER.SUPERVISOR KENNEL, Jenna Unavailable Unavail able Tannhof WHITE WORK CLEANER.SUPERVISOR KENNEL, Jenna Unavailable Morgan POLANCO, Dr. Ruiz Primary Care Provider [phone] Jose Miguel POLANCO, Dr. Jansen Emergency Provider [phone] Priscilla POLANCO, Dr. Kathy Bearden Admit Provider Priscilla POALNCO, Dr. Kathy Bearden Attending Provider Priscilla POLANCO, Dr. Kathy Bearden Other Provider Alberto POLANCO, Dr. Shoemaker Attending Provider Alberto POLANCO, Dr. Shoemaker Other Provider Ever POLANCO, Shayy Attending Provider Unavailaiyana Curtis MD, Shayy Referring Provider Unavailaiyana Carmona NP-CHalina Attending Provider Ever POLANCO, Dr. Lucas Attending Provider [phone] STAS MORA Attending Unavailable ELDERBROCK, STAS D [...] Unavailable [place], Stas Primary Care Unavailable Kristine WOLF HUNTER, Halina Attending Unavailable [place], Stas Primary Care Unavailable Kristine WOLF HUNTER, Halina Attending Unavailable [place], Stas Primary Care [...] Navid Attending Unavailable Alberto, Navid Consulting Unavailable [place], Stas Primary Care Unavailable Kristine WOLF HUNTER, Halina Attending Unavailable [place], Stas Primary Care Unavailable Shailaton WOLF HUNTER, Halina Attending Unavailable [place], Stas Primary Care Unavailable Oleghe OLS, Efewongbe Attending Unavailabl e [place], Stas Primary Care Unavailable Oleghe OLS, Efewongbe Attending Unavailabl e Koram, Kathy Monisha Admitting Unavailable Koram, Kathy Monisha Attending Unavailable Koram, Ktahy Monisha Consulting Unavailable [facility], Stas Primary Care Unavailable Oleghe OLS, Efewongbe Attending Unavailabl e Oleghe OLS, Efewongbe Referring Unavailabl e [facility], Stas Primary Care Unavailable Medications Current Medications [...] unspecified vessel or lesion type, unspecified whether [place] or transplanted heart Take 1 tablet by [...] hydrochloride 10 mg oral tablet (20 sources) R-wxedeg-G-aspartate Receptor Antagonist Start: 06-02-19 End: 11-29-19 take [...] Date: 01/01/06 Status: Ordered polyethylene glycol 3350 [id number] mg powder for oral solution (9 sources) [...] on above: Take 1 capsule by mo [facility] daily at bedtime. vardenafil [...] Comment on above: 5 mg every Mon, Dxiie; 2.5 mg all other days TAKE 5 [...] disease (20 sources) Atherosclerotic heart disease of [place] coronary artery without angina pectoris; Translations: [Coronary [...] sources) Long-term current use of anticoagulant; Translations: [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 (current) use of anticoagulants] Onset: 09-22-2016 Episodic [...] 04-24-2011 04-24-2011 Episodic Other aftercare (3 sources) 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 (current) use of anticoagulants; Translations: [Long-term (current) [...] Auto (Unsp spec) [#/Vol] 1.15 10*3/uL 0.83-4.51 [facility] Absolute neutrophil countOrd ered By: Shayy Curtis on 11-23-2024 Neutrophils (Bld) [#/Vol] 4.4 10*3/uL 2.0-7.7 [facility] Automated lymphocyte count a s percentage of total leukocytesOrdered By: Shayy Curtis on 11-23-2024 Lymphocytes/100 WBC Auto (Unsp spec) 17.5 % Low 19-41 [facility] Basophil percentageOrdered B y: baldomero Curtis on 11-23-2024 Basophils/100 WBC (Bld) 0.9 % 0-1 [facility] Eosinophil percentageOrdered By: [facility] Salazarrad[facility] on 11-23-2024 Eosinophils/100 WBC (Bld) 2.9 % 0-5 [facility] Erythrocyte distribution wid th ratioOrdered By: baldomero Salazarradha on 11-23-2024 Erythrocyte distribution width (RBC) [Ratio] 16.9 % High 11.6-14.6 [facility] Erythrocyte distribution wid th standard deviationOrdered By: baldomero Curtis on 11-23-2024 Erythrocyte distribution width (RBC) [Ratio] 50.4 fl High 35.1-43.9 [facility] Hematocrit Auto (Bld) [Volum e fraction]Ordered By: Shayy Curtis on 11-23-2024 Hematocrit (Bld) [Volume fraction] 36.3 % Low 40-54 [facility] Hemoglobin measurementOrdere d By: [facility] Curtis on 11-23-2024 Hemoglobin (Bld) [Mass/Vol] 11.6 g/dL Low 13.0-16.5 [facility] Immature granulocytes/100 WB C Auto (Bld)Ordered By: [facility] Curtis on 11-23-2024 Immature granulocytes/100 WBC (Bld) 0.300 % 0.0-0.9 [facility] Comment on above: IG% - Immature Granu locytes (promyelocytes, myelocytes and metamyelocytes) > 1% indicates that a LEFT SHIFT is Present. MCV (mean corpuscular volume ) determinationOrdered By: hollievalley parkirlanda Curtis on 11-23-2024 MCV (RBC) [Entitic vol] 82.1 fL 80-94 [facility] Mean corpuscular hemoglobin (MCH) determinationOrdered By: hollievalley parkirlanda Curtis on 11-23-2024 MCH (RBC) [Entitic mass] 26.2 pg Low 27.0-32.0 [facility] Mean corpuscular hemoglobin concentration (MCHC) determinationOrdered By: hollievalley parkirlanda Curtis on 11-23-2024 MCHC (RBC) [Mass/Vol] 32.0 g/dL 32-36 [facility] Mean platelet volume determi nationOrdered By: [facility] Curtis on 11-23-2024 Platelet mean volume (Bld) [Entitic vol] 10.0 fL 6.2-12.0 [facility] Monocyte percentageOrdered B y: Shayy Curtis on 11-23-2024 Monocytes/100 WBC (Bld) 11.3 % High 0-10 [facility] Neutrophil percentageOrdered By: baldomero Curtis on 11-23-2024 Neutrophils/100 WBC (Bld) 67.1 % 47-70 [facility] Nucleated red blood cell per centageOrdered By: Shayy Curtis on 11-23-2024 Nucleated RBC/100 WBC (Bld) [Ratio] 0 % 0-5 [facility] Platelet countOrdered By: Hung Curtis on 11-23-2024 Platelets (Bld) [#/Vol] 245 10*3/uL 150-450 [facility] RBC Auto (Bld) [#/Vol]Ordere d By: Shayy Curtis on 11-23-2024 RBC (Bld) [#/Vol] 4.42 10*6/uL Low 4.6-6.2 [facility] White blood cell (WBC) count Ordered By: Shayy Curtis on 11-23-2024 WBC (Bld) [#/Vol] 6.6 10*3/uL 4.4-11.0 [facility] Absolute lymphocyte countOrd ered By: Shayy Curtis on 11-02-2024 Lymphocytes Auto (Unsp spec) [#/Vol] 1.10 10*3/uL 0.83-4.51 [facility] Absolute neutrophil countOrd ered By: Shayy Curtis on 11-02-2024 Neutrophils (Bld) [#/Vol] 6.2 10*3/uL 2.0-7.7 [facility] Anion gap in Serum or Plasma Ordered By: Shayy Curtis on 11-02-2024 Anion gap [Moles/Vol] 10 mmol/L 5-15 [facility] Automated lymphocyte count a s percentage of total leukocytesOrdered By: Shayy Curtis on 11-02-2024 Lymphocytes/100 WBC Auto (Unsp spec) 13.5 % Low 19-41 [facility] BUN/creatinine ratioOrdered By: Shayy Curtis on 11-02-2024 Urea nitrogen/Creatinine [Mass ratio] 30.4 mg/mg High 10-20 [facility] Basophil percentageOrdered B y: Shayy Curtis on 11-02-2024 Basophils/100 WBC (Bld) 0.5 % 0-1 [facility] Carbon dioxide, total [Moles /volume] in Central venous bloodOrdered By: Shayy Curtis on 11-02-2024 CO2 [Moles/Vol] 22.3 mmol/L 21.0-32.0 [facility] Chloride assayOrdered By: Hung Curtis on 11-02-2024 Chloride [Moles/Vol] 106 mmol/L 98-108 [facility] Eosinophil percentageOrdered By: Shayy Curtis on 11-02-2024 Eosinophils/100 WBC (Bld) 1.4 % 0-5 [facility] Erythrocyte distribution wid th ratioOrdered By: baldomero Curtis on 11-02-2024 Erythrocyte distribution width (RBC) [Ratio] 18.0 % High 11.6-14.6 [facility] Erythrocyte distribution wid th standard deviationOrdered By: Latricevalley parkirlanda Curtis on 11-02-2024 Erythrocyte distribution width (RBC) [Ratio] 53.7 fl High 35.1-43.9 [facility] Glomerular filtration rate ( GFR) estimation/1.73 sq m using serum, plasma, or whole bOrdered By: Shayy Curtis on 11-02-2024 GFR/1.73 sq M.predicted among non-blacks MDRD (S/P/Bld) [Vol rate/Area] 91 mL/min/{1.73_m2} >60 [facility] Comment on above: mL/min/1.73m2 CKD-EP I Creatinine Equation (2020) Hematocrit Auto (Bld) [Volum e fraction]Ordered By: Shayy Curtis on 11-02-2024 Hematocrit (Bld) [Volume fraction] 35.3 % Low 40-54 [facility] Hemoglobin measurementOrdere d By: Shayy Curtis on 11-02-2024 Hemoglobin (Bld) [Mass/Vol] 11.2 g/dL Low 13.0-16.5 [facility] Immature granulocytes/100 WB C Auto (Bld)Ordered By: Shayy Curtis 11-02-2024 Immature granulocytes/100 WBC (Bld) 0.400 % 0.0-0.9 [facility] Comment on above: IG% - Immature Granu locytes (promyelocytes, myelocytes and metamyelocytes) > 1% indicates that a LEFT SHIFT is Present. MCV (mean corpuscular volume ) determinationOrdered By: Shayy Curtis on 11-02-2024 MCV (RBC) [Entitic vol] 81.5 fL 80-94 [facility] Mean corpuscular hemoglobin (MCH) determinationOrdered By: Shayy Curtis on 11-02-2024 MCH (RBC) [Entitic mass] 25.9 pg Low 27.0-32.0 [facility] Mean corpuscular hemoglobin concentration (MCHC) determinationOrdered By: Shayy Curtis on 11-02-2024 MCHC (RBC) [Mass/Vol] 31.7 g/dL Low 32-36 [facility] Mean platelet volume determi nationOrdered By: Shayy Curtis on 11-02-2024 Platelet mean volume (Bld) [Entitic vol] 10.3 fL 6.2-12.0 [facility] Monocyte percentageOrdered B y: Shayy Curtis on 11-02-2024 Monocytes/100 WBC (Bld) 7.7 % 0-10 [facility] Neutrophil percentageOrdered By: Shayy Curtis on 11-02-2024 Neutrophils/100 WBC (Bld) 76.5 % High 47-70 [facility] Nucleated red blood cell per centageOrdered By: Shayy Curtis on 11-02-2024 Nucleated RBC/100 WBC (Bld) [Ratio] 0 % 0-5 [facility] Platelet countOrdered By: Hung Curtis on 11-02-2024 Platelets (Bld) [#/Vol] 225 10*3/uL 150-450 [facility] Potassium measurement (mass/ volume)Ordered By: Shayy Curtis on 11-02-2024 Potassium (Unsp spec) [Mass/Vol] 3.9 mmol/L 3.3-5.1 [facility] RBC Auto (Bld) [#/Vol]Ordere d By: Shayy Curtis on 11-02-2024 RBC (Bld) [#/Vol] 4.33 10*6/uL Low 4.6-6.2 [facility] Serum creatinine measurement (mass/volume)Ordered By: Shayy Curtis on 11-02-2024 Creatinine [Mass/Vol] 0.62 mg/dL Low 0.70-1.20 [facility] Serum glucose measurement (m ass/volume)Ordered By: Shayy Curtis on 11-02-2024 Glucose [Mass/Vol] 110 mg/dL High 70-99 [facility] Serum or plasma calcium alvaro urement (mass/volume)Ordered By: Shayy Curtis on 11-02-2024 Calcium [Mass/Vol] 8.7 mg/dL 7.6-11.0 [facility] Serum or plasma urea nitroge n measurement (mass/volume)Ordered By: Shayy Curtis on 11-02-2024 Urea nitrogen [Mass/Vol] 19 mg/dL 4-19 [facility] Sodium levelOrdered By: Latrice simonmaira Ever on 11-02-2024 Sodium [Moles/Vol] 139 mmol/L 133-145 [facility] White blood cell (WBC) count Ordered By: Shayy Curtis on 11-02-2024 WBC (Bld) [#/Vol] 8.1 10*3/uL 4.4-11.0 [facility] International normalized rat io (INR) measurement by fingerstickOrdered By: Shayy Curtis on 10-31-2024 INR Coag (BldC) [Relative time] 1.8 [facility] Comment on above: Critical Value > 4.0 Whole blood prothrombin time Ordered By: Shayy Curtis on 10-31-2024 PT Coag (Bld) [Time] 20.2 s High 11.7-14.9 [facility] normalized rat io (INR) measurement by fingerstickOrdered By: Shayy Curtis on 10-06-2024 INR Coag (BldC) [Relative time] 2.1 [facility] Comment on above: Critical Value > 4.0 Whole blood prothrombin time Ordered By: Shayy Curtis on 10-06-2024 PT Coag (Bld) [Time] 22.6 s High 11.7-14.9 [facility] Absolute lymphocyte countOrd ered By: Shayy Curtis on 10-05-2024 Lymphocytes Auto (Unsp spec) [#/Vol] 1.54 10*3/uL 0.83-4.51 [facility] Absolute neutrophil countOrd ered By: Efhollieongirlanda Bernale on 10-05-2024 Neutrophils (Bld) [#/Vol] 4.2 10*3/uL 2.0-7.7 [facility] Anion gap in Serum or Plasma Ordered By: Shayy Curtis on 10-05-2024 Anion gap [Moles/Vol] 10 mmol/L 5-15 [facility] Automated lymphocyte count a s percentage of total leukocytesOrdered By: Shayy Curtis on 10-05-2024 Lymphocytes/100 WBC Auto (Unsp spec) 23.8 % 19-41 [facility] BUN/creatinine ratioOrdered By: Latriceongirlanda Bernale on 10-05-2024 Urea nitrogen/Creatinine [Mass ratio] 18.2 mg/mg 10-20 [facility] Basophil percentageOrdered B y: Shayy Bernale on 10-05-2024 Basophils/100 WBC (Bld) 0.6 % 0-1 [facility] Carbon dioxide, total [Moles /volume] in Central venous bloodOrdered By: Shayy Curtis on 10-05-2024 CO2 [Moles/Vol] 24.6 mmol/L 21.0-32.0 [facility] Chloride assayOrdered By: Ef hollieongirlanda Curtis on 10-05-2024 Chloride [Moles/Vol] 106 mmol/L 98-108 [facility] Eosinophil percentageOrdered By: Christinebe Gabee on 10-05-2024 Eosinophils/100 WBC (Bld) 1.9 % 0-5 [facility] Erythrocyte distribution wid th ratioOrdered By: Efhollieongbe Martinghe on 10-05-2024 Erythrocyte distribution width (RBC) [Ratio] 18.2 % High 11.6-14.6 [facility] Erythrocyte distribution wid th standard deviationOrdered By: Efbaldomero Curtis on 10-05-2024 Erythrocyte distribution width (RBC) [Ratio] 52.4 fl High 35.1-43.9 [facility] Glomerular filtration rate ( GFR) estimation/1.73 sq m using serum, plasma, or whole bOrdered By: Shayy Curtis on 10-05-2024 GFR/1.73 sq M.predicted among non-blacks MDRD (S/P/Bld) [Vol rate/Area] 87 mL/min/{1.73_m2} >60 [facility] Comment on above: mL/min/1.73m2 CKD-EP I Creatinine Equation (2020) Hematocrit Auto (Bld) [Volum e fraction]Ordered By: Shayy Curtis on 10-05-2024 Hematocrit (Bld) [Volume fraction] 35.0 % Low 40-54 [facility] Hemoglobin measurementOrdere d By: Shayy Curtis on 10-05-2024 Hemoglobin (Bld) [Mass/Vol] 11.0 g/dL Low 13.0-16.5 [facility] Immature granulocytes/100 WB C Auto (Bld)Ordered By: baldomero Curtis 10-05-2024 Immature granulocytes/100 WBC (Bld) 0.300 % 0.0-0.9 [facility] Comment on above: IG% - Immature Granu locytes (promyelocytes, myelocytes and metamyelocytes) > 1% indicates that a LEFT SHIFT is Present. MCV (mean corpuscular volume ) determinationOrdered By: Shayy Curtis 10-05-2024 MCV (RBC) [Entitic vol] 78.8 fL Low 80-94 [facility] Mean corpuscular hemoglobin (MCH) determinationOrdered By: baldomero Curtis 10-05-2024 MCH (RBC) [Entitic mass] 24.8 pg Low 27.0-32.0 [facility] Mean corpuscular hemoglobin concentration (MCHC) determinationOrdered By: Shayy Curtis 10-05-2024 MCHC (RBC) [Mass/Vol] 31.4 g/dL Low 32-36 [facility] Mean platelet volume determi nationOrdered By: Shayy Curtis 5 Platelet mean volume (Bld) [Entitic vol] 10.3 fL 6.2-12.0 [facility] Monocyte percentageOrdered B y: Shayy Curtis on 10-05-2024 Monocytes/100 WBC (Bld) 8.5 % 0-10 [facility] Neutrophil percentageOrdered By: Shayy Curtis on 10-05-2024 Neutrophils/100 WBC (Bld) 64.9 % 47-70 [facility] Nucleated red blood cell per centageOrdered By: Shayy Curtis on 10-05-2024 Nucleated RBC/100 WBC (Bld) [Ratio] 0 % 0-5 [facility] Platelet countOrdered By: Hung Curtis on 10-05-2024 Platelets (Bld) [#/Vol] 235 10*3/uL 150-450 [facility] Potassium measurement (mass/ volume)Ordered By: Shayy Martinsergio on 10-05-2024 Potassium (Unsp spec) [Mass/Vol] 4.1 mmol/L 3.3-5.1 [facility] RBC Auto (Bld) [#/Vol]Ordere d By: Shayy Curtis on 10-05-2024 RBC (Bld) [#/Vol] 4.44 10*6/uL Low 4.6-6.2 [facility] Serum creatinine measurement (mass/volume)Ordered By: Shayy Curtis on 10-05-2024 Creatinine [Mass/Vol] 0.73 mg/dL 0.70-1.20 [facility] Serum glucose measurement (m ass/volume)Ordered By: Shayy Curtis on 10-05-2024 Glucose [Mass/Vol] 90 mg/dL 70-99 [facility] Serum or plasma calcium alvaro urement (mass/volume)Ordered By: Shayy Curtis on 10-05-2024 Calcium [Mass/Vol] 8.7 mg/dL 7.6-11.0 [facility] Serum or plasma urea nitroge n measurement (mass/volume)Ordered By: Shayy Bernalradha on 10-05-2024 Urea nitrogen [Mass/Vol] 13 mg/dL 4-19 [facility] Sodium levelOrdered By: Latrice timmy Ever on 10-05-2024 Sodium [Moles/Vol] 140 mmol/L 133-145 [facility] White blood cell (WBC) count Ordered By: Shayy Curtis on 10-05-2024 WBC (Bld) [#/Vol] 6.5 10*3/uL 4.4-11.0 [facility] normalized rat io (INR) calculationOrdered By: Shayy Curtis on 09-29-2024 INR Coag (Bld) [Relative time] 3.3 {INR} [facility] Prothrombin timeOrdered By: Shayy Curtis on 09-29-2024 PT Coag (PPP) [Time] 34.4 s High 11.7-14.9 [facility] Absolute lymphocyte countOrd ered By: Shayy Curtis on 09-28-2024 Lymphocytes Auto (Unsp spec) [#/Vol] 1.41 10*3/uL 0.83-4.51 [facility] Absolute neutrophil countOrd ered By: Shayy Curtis on 09-28-2024 Neutrophils (Bld) [#/Vol] 4.8 10*3/uL 2.0-7.7 [facility] Anion gap in Serum or Plasma Ordered By: Shayy Curtis on 09-28-2024 Anion gap [Moles/Vol] 13 mmol/L 5-15 [facility] Automated lymphocyte count a s percentage of total leukocytesOrdered By: Shayy Curtis on 09-28-2024 Lymphocytes/100 WBC Auto (Unsp spec) 20.1 % 19-41 [facility] BUN/creatinine ratioOrdered By: Shayy Curtis on 09-28-2024 Urea nitrogen/Creatinine [Mass ratio] 19.9 mg/mg 10-20 [facility] Basophil percentageOrdered B y: Shayy Curtis on 09-28-2024 Basophils/100 WBC (Bld) 0.6 % 0-1 [facility] Carbon dioxide, total [Moles /volume] in Central venous bloodOrdered By: Shayy Curtis on 09-28-2024 CO2 [Moles/Vol] 21.1 mmol/L 21.0-32.0 [facility] Chloride assayOrdered By: Hung connorirlanda Curtis on 09-28-2024 Chloride [Moles/Vol] 105 mmol/L 98-108 [facility] Eosinophil percentageOrdered By: Hungbaldomero Salazartomyradha 09-28-2024 Eosinophils/100 WBC (Bld) 2.0 % 0-5 [facility] Erythrocyte distribution wid th ratioOrdered By: Shayy Curtis on 09-28-2024 Erythrocyte distribution width (RBC) [Ratio] 18.3 % High 11.6-14.6 [facility] Erythrocyte distribution wid th standard deviationOrdered By: Hunghollievalley parkirlanda Curtis on 09-28-2024 Erythrocyte distribution width (RBC) [Ratio] 52.8 fl High 35.1-43.9 [facility] Glomerular filtration rate ( GFR) estimation/1.73 sq m using serum, plasma, or whole bOrdered By: Shayy Curtis on 09-28-2024 GFR/1.73 sq M.predicted among non-blacks MDRD (S/P/Bld) [Vol rate/Area] 88 mL/min/{1.73_m2} >60 [facility] Comment on above: mL/min/1.73m2 CKD-EP I Creatinine Equation (2020) Hematocrit Auto (Bld) [Volum e fraction]Ordered By: Shayy Curtis 09-28-2024 Hematocrit (Bld) [Volume fraction] 37.0 % Low 40-54 [facility] Hemoglobin measurementOrdere d By: Shayy Curtis on 09-28-2024 Hemoglobin (Bld) [Mass/Vol] 11.5 g/dL Low 13.0-16.5 [facility] Immature granulocytes/100 WB C Auto (Bld)Ordered By: Shayy Curtis on 09-28-2024 Immature granulocytes/100 WBC (Bld) 0.300 % 0.0-0.9 [facility] Comment on above: IG% - Immature Granu locytes (promyelocytes, myelocytes and metamyelocytes) > 1% indicates that a LEFT SHIFT is Present. MCV (mean corpuscular volume ) determinationOrdered By: Shayy Curtis on 09-28-2024 MCV (RBC) [Entitic vol] 80.3 fL 80-94 [facility] Mean corpuscular hemoglobin (MCH) determinationOrdered By: Shayy Curtis on 09-28-2024 MCH (RBC) [Entitic mass] 24.9 pg Low 27.0-32.0 [facility] Mean corpuscular hemoglobin concentration (MCHC) determinationOrdered By: Shayy Curtis on 09-28-2024 MCHC (RBC) [Mass/Vol] 31.1 g/dL Low 32-36 [facility] Mean platelet volume determi nationOrdered By: Shayy Curtis on 09-28-2024 Platelet mean volume (Bld) [Entitic vol] 10.5 fL 6.2-12.0 [facility] Monocyte percentageOrdered B y: Shayy Curtis on 09-28-2024 Monocytes/100 WBC (Bld) 8.8 % 0-10 [facility] Neutrophil percentageOrdered By: Shayy Curtis on 09-28-2024 Neutrophils/100 WBC (Bld) 68.2 % 47-70 [facility] Nucleated red blood cell per centageOrdered By: Shayy Curtis on 09-28-2024 Nucleated RBC/100 WBC (Bld) [Ratio] 0 % 0-5 [facility] Platelet countOrdered By: Hung Curtis on 09-28-2024 Platelets (Bld) [#/Vol] 280 10*3/uL 150-450 [facility] Potassium measurement (mass/ volume)Ordered By: Shayy Curtis on 09-28-2024 Potassium (Unsp spec) [Mass/Vol] 4.0 mmol/L 3.3-5.1 [facility] RBC Auto (Bld) [#/Vol]Ordere d By: Shayy Curtis on 09-28-2024 RBC (Bld) [#/Vol] 4.61 10*6/uL 4.6-6.2 [facility] Serum creatinine measurement (mass/volume)Ordered By: Shayy Curtis on 09-28-2024 Creatinine [Mass/Vol] 0.71 mg/dL 0.70-1.20 [facility] Serum glucose measurement (m ass/volume)Ordered By: Shayy Curtis on 09-28-2024 Glucose [Mass/Vol] 91 mg/dL 70-99 [facility] Serum or plasma calcium alvaro urement (mass/volume)Ordered By: Shayy Curtis on 09-28-2024 Calcium [Mass/Vol] 8.9 mg/dL 7.6-11.0 [facility] Serum or plasma urea nitroge n measurement (mass/volume)Ordered By: Shayy Curtis on 09-28-2024 Urea nitrogen [Mass/Vol] 14 mg/dL 4-19 [facility] Sodium levelOrdered By: Latrice Curtis on 09-28-2024 Sodium [Moles/Vol] 140 mmol/L 133-145 [facility] White blood cell (WBC) count Ordered By: Shayy Curtis on 09-28-2024 WBC (Bld) [#/Vol] 7.0 10*3/uL 4.4-11.0 [facility] normalized rat io (INR) measurement by fingerstickOrdered By: Shayy Curtis on 09-26-2024 INR Coag (BldC) [Relative time] 2.5 [facility] Comment on above: Critical Value > 4.0 Whole blood prothrombin time Ordered By: Shayy Curtis on 09-26-2024 PT Coag (Bld) [Time] 27.1 s High 11.7-14.9 [facility] normalized rat io (INR) calculationOrdered By: Shayy Curtis on 09-23-2024 INR Coag (Bld) [Relative time] 2.0 {INR} [facility] Prothrombin timeOrdered By: Shayy Curtis on 09-23-2024 PT Coag (PPP) [Time] 23.5 s High 11.7-14.9 [facility] Absolute lymphocyte countOrd ered By: Shayy Curtis on 09-21-2024 Lymphocytes Auto (Unsp spec) [#/Vol] 1.35 10*3/uL 0.83-4.51 [facility] Absolute neutrophil countOrd ered By: Shayy Curtis on 09-21-2024 Neutrophils (Bld) [#/Vol] 4.3 10*3/uL 2.0-7.7 [facility] Anion gap in Serum or Plasma Ordered By: hollievalley parkirlanda Curtis on 09-21-2024 Anion gap [Moles/Vol] 12 mmol/L 5-15 [facility] Automated lymphocyte count a s percentage of total leukocytesOrdered By: hollievalley parkirlanda Salazarradha on 09-21-2024 Lymphocytes/100 WBC Auto (Unsp spec) 21.5 % 19-41 [facility] BUN/creatinine ratioOrdered By: [facility] Martinrad[facility] on 09-21-2024 Urea nitrogen/Creatinine [Mass ratio] 15.8 mg/mg 10-20 [facility] Basophil percentageOrdered B y: baldomero Curtis on 09-21-2024 Basophils/100 WBC (Bld) 0.8 % 0-1 [facility] CNPNon 09-21-2024 [facility] ROBY FLOR[facility] ([id number]) 1935 M Date Time Provider Department 09/21/24 ST[facility] MORA [facility] [place] During your visit today, we recorded the following information about you: Ruthannzenaida Petty 09/21/2024 9:23 AM Signed [facility]. 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*08/31/2024 Encounter Status:Closed by MARTA PALACIO on 09/22/24 Normal [facility] Carbon dioxide, total [Moles /volume] in Central venous bloodOrdered By: Shayy Curtis on 09-21-2024 CO2 [Moles/Vol] 23.2 mmol/L 21.0-32.0 [facility] Chloride assayOrdered By: Hugn Curtis on 09-21-2024 Chloride [Moles/Vol] 104 mmol/L 98-108 [facility] Eosinophil percentageOrdered By: Shayy Curtis on 09-21-2024 Eosinophils/100 WBC (Bld) 1.3 % 0-5 [facility] Erythrocyte distribution wid th ratioOrdered By: Shayy Curtis on 09-21-2024 Erythrocyte distribution width (RBC) [Ratio] 18.0 % High 11.6-14.6 [facility] Erythrocyte distribution wid th standard deviationOrdered By: Shayy Curtis on 09-21-2024 Erythrocyte distribution width (RBC) [Ratio] 50.8 fl High 35.1-43.9 [facility] Glomerular filtration rate ( GFR) estimation/1.73 sq m using serum, plasma, or whole bOrdered By: Shayy Curtis on 09-21-2024 GFR/1.73 sq M.predicted among non-blacks MDRD (S/P/Bld) [Vol rate/Area] 88 mL/min/{1.73_m2} >60 [facility] Comment on above: mL/min/1.73m2 CKD-EP I Creatinine Equation (2020) Hematocrit Auto (Bld) [Volum e fraction]Ordered By: Shayy Curtis on 09-21-2024 Hematocrit (Bld) [Volume fraction] 37.5 % Low 40-54 [facility] Hemoglobin measurementOrdere d By: Shayy Curtis on 09-21-2024 Hemoglobin (Bld) [Mass/Vol] 11.6 g/dL Low 13.0-16.5 [facility] Immature granulocytes/100 WB C Auto (Bld)Ordered By: Shayy Curtis on 09-21-2024 Immature granulocytes/100 WBC (Bld) 0.300 % 0.0-0.9 [facility] Comment on above: IG% - Immature Granu locytes (promyelocytes, myelocytes and metamyelocytes) > 1% indicates that a LEFT SHIFT is Present. International normalized rat io (INR) calculationOrdered By: Shayy Curtis on 09-21-2024 INR Coag (Bld) [Relative time] 1.7 {INR} [facility] MCV (mean corpuscular volume ) determinationOrdered By: Shayy Curtis 09-21-2024 MCV (RBC) [Entitic vol] 78.9 fL Low 80-94 [facility] Mean corpuscular hemoglobin (MCH) determinationOrdered By: baldomero Curtis 09-21-2024 MCH (RBC) [Entitic mass] 24.4 pg Low 27.0-32.0 [facility] Mean corpuscular hemoglobin concentration (MCHC) determinationOrdered By: Shayy Curtis on 09-21-2024 MCHC (RBC) [Mass/Vol] 30.9 g/dL Low 32-36 [facility] Mean platelet volume determi nationOrdered By: Shayy Curtis on 09-21-2024 Platelet mean volume (Bld) [Entitic vol] 10.1 fL 6.2-12.0 [facility] Monocyte percentageOrdered B y: Shayy Curtis on 09-21-2024 Monocytes/100 WBC (Bld) 8.1 % 0-10 [facility] Neutrophil percentageOrdered By: Shayy Curtis on 09-21-2024 Neutrophils/100 WBC (Bld) 68.0 % 47-70 [facility] Nucleated red blood cell per centageOrdered By: Shayy Curtis on 09-21-2024 Nucleated RBC/100 WBC (Bld) [Ratio] 0 % 0-5 [facility] Platelet countOrdered By: Hung Curtis on 09-21-2024 Platelets (Bld) [#/Vol] 318 10*3/uL 150-450 [facility] Potassium measurement (mass/ volume)Ordered By: Shayy Curtis on 09-21-2024 Potassium (Unsp spec) [Mass/Vol] 4.0 mmol/L 3.3-5.1 [facility] Prothrombin timeOrdered By: Shayy Curtis on 09-21-2024 PT Coag (PPP) [Time] 20.6 s High 11.7-14.9 [facility] RBC Auto (Bld) [#/Vol]Ordere d By: Shayy Curtis on 09-21-2024 RBC (Bld) [#/Vol] 4.75 10*6/uL 4.6-6.2 [facility] Serum creatinine measurement (mass/volume)Ordered By: Shayy Curtis on 09-21-2024 Creatinine [Mass/Vol] 0.70 mg/dL 0.70-1.20 [facility] Serum glucose measurement (m ass/volume)Ordered By: Shayy Curtis on 09-21-2024 Glucose [Mass/Vol] 101 mg/dL High 70-99 [facility] Serum or plasma calcium alvaro urement (mass/volume)Ordered By: Shayy Curtis on 09-21-2024 Calcium [Mass/Vol] 9.2 mg/dL 7.6-11.0 [facility] Serum or plasma urea nitroge n measurement (mass/volume)Ordered By: Shayy Curtis on 09-21-2024 Urea nitrogen [Mass/Vol] 11 mg/dL 4-19 [facility] Sodium levelOrdered By: Latrice simonmaira Ever on 09-21-2024 Sodium [Moles/Vol] 139 mmol/L 133-145 [facility] White blood cell (WBC) count Ordered By: Shayy Curtis on 09-21-2024 WBC (Bld) [#/Vol] 6.3 10*3/uL 4.4-11.0 [facility] International normalized rat io (INR) measurement by fingerstickOrdered By: Shayy Curtis on 09-19-2024 INR Coag (BldC) [Relative time] 1.9 [facility] Comment on above: Critical Value > 4.0 Whole blood prothrombin time Ordered By: Shayy Curtis on 09-19-2024 PT Coag (Bld) [Time] 21.5 s High 11.7-14.9 [facility] International normalized rat io (INR) calculationOrdered By: Shayy Curtis on 09-15-2024 INR Coag (Bld) [Relative time] 2.1 {INR} [facility] Prothrombin timeOrdered By: Shayy Curtis on 09-15-2024 PT Coag (PPP) [Time] 24.2 s High 11.7-14.9 [facility] Absolute lymphocyte countOrd ered By: Shayy Curtis on 09-14-2024 Lymphocytes Auto (Unsp spec) [#/Vol] 1.57 10*3/uL 0.83-4.51 [facility] Absolute neutrophil countOrd ered By: Shayy Curtis on 09-14-2024 Neutrophils (Bld) [#/Vol] 5.1 10*3/uL 2.0-7.7 [facility] Anion gap in Serum or Plasma Ordered By: Shayy Curtis on 09-14-2024 Anion gap [Moles/Vol] 12 mmol/L 5-15 [facility] Automated lymphocyte count a s percentage of total leukocytesOrdered By: Shayy Curtis on 09-14-2024 Lymphocytes/100 WBC Auto (Unsp spec) 20.8 % 19-41 [facility] BUN/creatinine ratioOrdered By: hollievalley parkirlanda Curtis on 09-14-2024 Urea nitrogen/Creatinine [Mass ratio] 21.8 mg/mg High 10-20 [facility] Basophil percentageOrdered B y: Shayy Curtis on 09-14-2024 Basophils/100 WBC (Bld) 1.1 % High 0-1 [facility] Carbon dioxide, total [Moles /volume] in Central venous bloodOrdered By: Shayy Curtis on 09-14-2024 CO2 [Moles/Vol] 21.8 mmol/L 21.0-32.0 [facility] Chloride assayOrdered By: Hung hollietimmy Curtis on 09-14-2024 Chloride [Moles/Vol] 107 mmol/L 98-108 [facility] Eosinophil percentageOrdered By: baldomero Curtis on 09-14-2024 Eosinophils/100 WBC (Bld) 1.7 % 0-5 [facility] Erythrocyte distribution wid th ratioOrdered By: Shayy Curtis on 09-14-2024 Erythrocyte distribution width (RBC) [Ratio] 17.7 % High 11.6-14.6 [facility] Erythrocyte distribution wid th standard deviationOrdered By: hollievalley parkirlanda Curtis on 09-14-2024 Erythrocyte distribution width (RBC) [Ratio] 51.1 fl High 35.1-43.9 [facility] Glomerular filtration rate ( GFR) estimation/1.73 sq m using serum, plasma, or whole bOrdered By: Shayy Curtis on 09-14-2024 GFR/1.73 sq M.predicted among non-blacks MDRD (S/P/Bld) [Vol rate/Area] 87 mL/min/{1.73_m2} >60 [facility] Comment on above: mL/min/1.73m2 CKD-EP I Creatinine Equation (2020) Hematocrit Auto (Bld) [Volum e fraction]Ordered By: Shayy Curtis on 09-14-2024 Hematocrit (Bld) [Volume fraction] 34.7 % Low 40-54 [facility] Hemoglobin measurementOrdere d By: Shayy Curtis on 09-14-2024 Hemoglobin (Bld) [Mass/Vol] 10.7 g/dL Low 13.0-16.5 [facility] Immature granulocytes/100 WB C Auto (Bld)Ordered By: Shayy Curtis on 09-14-2024 Immature granulocytes/100 WBC (Bld) 0.400 % 0.0-0.9 [facility] Comment on above: IG% - Immature Granu locytes (promyelocytes, myelocytes and metamyelocytes) > 1% indicates that a LEFT SHIFT is Present. MCV (mean corpuscular volume ) determinationOrdered By: Shayy Curtis on 09-14-2024 MCV (RBC) [Entitic vol] 78.9 fL Low 80-94 [facility] Mean corpuscular hemoglobin (MCH) determinationOrdered By: Shayy Curtis on 09-14-2024 MCH (RBC) [Entitic mass] 24.3 pg Low 27.0-32.0 [facility] Mean corpuscular hemoglobin concentration (MCHC) determinationOrdered By: Shayy Curtis on 09-14-2024 MCHC (RBC) [Mass/Vol] 30.8 g/dL Low 32-36 [facility] Mean platelet volume determi nationOrdered By: Shayy Curtis on 09-14-2024 Platelet mean volume (Bld) [Entitic vol] 10.6 fL 6.2-12.0 [facility] Monocyte percentageOrdered B y: Shayy Curtis on 09-14-2024 Monocytes/100 WBC (Bld) 8.5 % 0-10 [facility] Neutrophil percentageOrdered By: Shayy Curtis on 09-14-2024 Neutrophils/100 WBC (Bld) 67.5 % 47-70 [facility] Nucleated red blood cell per centageOrdered By: Shayy Curtis on 09-14-2024 Nucleated RBC/100 WBC (Bld) [Ratio] 0 % 0-5 [facility] Platelet countOrdered By: Hung baldomero Curtis on 09-14-2024 Platelets (Bld) [#/Vol] 291 10*3/uL 150-450 [facility] Potassium measurement (mass/ volume)Ordered By: Shayy Martinsergio on 09-14-2024 Potassium (Unsp spec) [Mass/Vol] 4.0 mmol/L 3.3-5.1 [facility] RBC Auto (Bld) [#/Vol]Ordere d By: Shayy Curtis on 09-14-2024 RBC (Bld) [#/Vol] 4.40 10*6/uL Low 4.6-6.2 [facility] Serum creatinine measurement (mass/volume)Ordered By: Hunghollietimmy Martinsergio on 09-14-2024 Creatinine [Mass/Vol] 0.74 mg/dL 0.70-1.20 [facility] Serum glucose measurement (m ass/volume)Ordered By: Shayy Martinsergio on 09-14-2024 Glucose [Mass/Vol] 99 mg/dL 70-99 [facility] Serum or plasma calcium alvaro urement (mass/volume)Ordered By: Shayy Martinsergio on 09-14-2024 Calcium [Mass/Vol] 8.6 mg/dL 7.6-11.0 [facility] Serum or plasma urea nitroge n measurement (mass/volume)Ordered By: Shayy Martintomyradha on 09-14-2024 Urea nitrogen [Mass/Vol] 16 mg/dL 4-19 [facility] Sodium levelOrdered By: Latrice Curtis on 09-14-2024 Sodium [Moles/Vol] 141 mmol/L 133-145 [facility] White blood cell (WBC) count Ordered By: Hunghollietimmy Martintomyradha on 09-14-2024 WBC (Bld) [#/Vol] 7.5 10*3/uL 4.4-11.0 [facility] International normalized rat io (INR) measurement by fingerstickOrdered By: Shayy Curtis on 09-12-2024 INR Coag (BldC) [Relative time] 3.2 [facility] Comment on above: Critical Value > 4.0 Whole blood prothrombin time Ordered By: Shayy Curtis on 09-12-2024 PT Coag (Bld) [Time] 33.0 s High 11.7-14.9 [facility] International normalized rat io (INR) measurement by fingerstickOrdered By: Shayy Curtis on 09-08-2024 INR Coag (BldC) [Relative time] 2.2 [facility] Comment on above: Critical Value > 4.0 Prothrombin Time w/INRon INR Normal [facility] Comment on above: Result Comment: Canc elled via OM: Order cancelled - Patient discharged Performed By: #### L 300.3900 #### [facility] [address] [place], [place], [id number] PROTIME Normal 11.7-14.9 [facility] Comment on above: Result Comment: Canc elled via OM: Order cancelled - Patient discharged Performed By: #### L 300.3900 #### [facility] [address] [place], [place], [id number] [phone] Whole blood prothrombin time Ordered By: Shayy Curtis on 09-08-2024 PT Coag (Bld) [Time] 23.8 s High 11.7-14.9 [facility] Anion gap in Serum or Plasma Ordered By: Shayy Curtis on 09-07-2024 Anion gap [Moles/Vol] 10 mmol/L 5-15 [facility] BUN/creatinine ratioOrdered By: Shayy Curtis on 09-07-2024 Urea nitrogen/Creatinine [Mass ratio] 14.0 mg/mg 10-20 [facility] Bilirubin, totalOrdered By: Shayy Curtis on 09-07-2024 Bilirubin [Mass/Vol] 1.02 mg/dL 0.00-1.30 [facility] Calculated very low density lipoprotein (VLDL) cholesterol measurementOrdered By: Shayy Curtis on 09-07-2024 Calculated very low density lipoprotein (VLDL) cholesterol measurement 13 mg/dL 5-40 [facility] Carbon dioxide, total [Moles /volume] in Central venous bloodOrdered By: Shayy Curtis on 09-07-2024 CO2 [Moles/Vol] 25.4 mmol/L 21.0-32.0 [facility] Chloride assayOrdered By: Hung Curtis on 09-07-2024 Chloride [Moles/Vol] 104 mmol/L 98-108 [facility] Culture, Blood (WB)on 2024 CUB No growth in 5 days. Normal [facility] Comment on above: Performed By: #### M 200.1000, L509.7001, L101.9900, L501.6710 #### [facility] [address] [place], [place], [id number] Glomerular filtration rate ( GFR) estimation/1.73 sq m using serum, plasma, or whole bOrdered By: Shayy Curtis on 09-07-2024 GFR/1.73 sq M.predicted among non-blacks MDRD (S/P/Bld) [Vol rate/Area] 88 mL/min/{1.73_m2} >60 [facility] Comment on above: mL/min/1.73m2 CKD-EP I Creatinine Equation (2020) LDL calc ser/plasOrdered By: Shayy Curtis on 09-07-2024 Cholesterol in LDL [Mass/Vol] 64 mg/dL [facility] Comment on above: Wvdssjdxbc=920-652 m g/dL & Higher Owzs=501 mg/dL or greater Laboratory - Chemistry and C hemistry - challengeOrdered By: Shayy Curtis on 09-07-2024 AST [Catalytic activity/Vol] 33 U/L <38 [facility] Potassium measurement (mass/ volume)Ordered By: Shayy Curtis on 09-07-2024 Potassium (Unsp spec) [Mass/Vol] 3.8 mmol/L 3.3-5.1 [facility] Prothrombin Time w/INRon INR Normal [facility] Comment on above: Result Comment: Canc elled via OM: Order cancelled - Patient discharged Performed By: #### L 300.3900 #### [facility] [address] [place], [place], [id number] PROTIME Normal 11.7-14.9 [facility] Comment on above: Result Comment: Canc elled via OM: Order cancelled - Patient discharged Performed By: #### L 300.3900 #### [facility] [address] [place], [place], [id number] Screening total cholesterol/ high density lipoprotein (HDL) cholesterol ratioOrdered By: Shayy Curtis on 09-07-2024 Cholesterol.total/Cho lesterol in HDL [Mass ratio] 3.75 {ratio} [facility] Serum creatinine measurement (mass/volume)Ordered By: Shayy Curtis on 09-07-2024 Creatinine [Mass/Vol] 0.70 mg/dL 0.70-1.20 [facility] Serum globulin measurementOr dered By: Shayy Curtis on 09-07-2024 Globulin (S) [Mass/Vol] 2.5 g/dL 2.2-4.2 [facility] Serum glucose measurement (m ass/volume)Ordered By: Shayy Curtis on 09-07-2024 Glucose [Mass/Vol] 107 mg/dL High 70-99 [facility] Serum or plasma alanine franks otransferase (ALT) measurementOrdered By: Shayy Curtis on 09-07-2024 ALT [Catalytic activity/Vol] 23 U/L <47 [facility] Serum or plasma albumin alvaro urement (mass/volume)Ordered By: Shayy Curtis on 09-07-2024 Albumin [Mass/Vol] 3.7 g/dL 3.4-4.8 [facility] Serum or plasma albumin/glob ulin mass ratioOrdered By: Shayy Curtis on 09-07-2024 Albumin/Globulin [Mass ratio] 1.5 {ratio} 0.9-2.4 [facility] Serum or plasma alkaline carole sphatase measurementOrdered By: Shayy Curtis on 09-07-2024 ALP [Catalytic activity/Vol] 123 U/L 40-129 [facility] Serum or plasma calcium alvaro urement (mass/volume)Ordered By: Shayy Salazartomyradha on 09-07-2024 Calcium [Mass/Vol] 8.7 mg/dL 7.6-11.0 [facility] Serum or plasma cholesterol in HDL measurement (mass/volume)Ordered By: Latricerobsonirlanda Salazartomyradha on 09-07-2024 Cholesterol in HDL [Mass/Vol] 28 mg/dL Low >40 [facility] Comment on above: National Cholesterol Education Program (NCEP) guidelines:<40 mg/dL: Low HDL-cholesterol (major risk factor for CHD)>= 60 mg/dL: High HDL-cholesterol (negative risk factor for CHD)HDL-cholesterol is affected by a number of factors, e.g. smoking, exercise, hormones, sex and age. Serum or plasma cholesterol measurement (mass/volume)Ordered By: Shayy Curtis on 09-07-2024 Cholesterol [Mass/Vol] 105 mg/dL <201 [facility] Comment on above: Cholesterol level, D esirable <200 mg/dLBorderline high cholesterol 200-239 mg/dLHigh cholesterol >=240 mg/dLRecommendations of the NCEP Adult Treatment Panel for the following risk-cutoff thresholds for the [place] population. Serum or plasma urea nitroge n measurement (mass/volume)Ordered By: Shayy Curtis on 09-07-2024 Urea nitrogen [Mass/Vol] 10 mg/dL 4-19 [facility] Sodium levelOrdered By: Latrice simonmaira Martintomyradha on 09-07-2024 Sodium [Moles/Vol] 139 mmol/L 133-145 [facility] TSH DL <= 0.005 mIU/L QnOrde red By: Shayy Salazartomyradha on 09-07-2024 TSH Qn 0.300 uIU/mL 0.300-4.20 0 [facility] Total proteinOrdered By: Yazan jessicairlanda Curtis on 09-07-2024 Protein [Mass/Vol] 6.2 g/dL 5.9-8.4 [facility] Triglycerides measurementOrd ered By: Shayy Curtis on 09-07-2024 Triglyceride [Mass/Vol] 63 mg/dL <199 [facility] Comment on above: The drugs N-Acetylcy steine and Metamizole may falsely depress this assay. Normal range: <150 mg/dLBorderline High: 150-199 mg/dLHigh: 200-499 mg/dLVery High: >500 mg/dL Vitamin B12 ser/plasOrdered By: Shayy Curtis on 09-07-2024 Cobalamin (Vitamin B12) [Mass/Vol] 519 pg/mL 180-914 [facility] Absolute lymphocyte countOrd ered By: Navid Dominguez on 09-06-2024 Lymphocytes Auto (Unsp spec) [#/Vol] 1.28 10*3/uL 0.83-4.51 [facility] Absolute neutrophil countOrd ered By: Navid Dominguez on 09-06-2024 Neutrophils (Bld) [#/Vol] 5.2 10*3/uL 2.0-7.7 [facility] Anion gap in Serum or Plasma Ordered By: Navid Dominguez on 09-06-2024 Anion gap [Moles/Vol] 10 mmol/L 5-15 [facility] Automated blood erythrocyte countOrdered By: Navid Dominguez on 09-06-2024 RBC (Bld) [#/Vol] 4.39 10*6/uL Low 4.6-6.2 [facility] Comment on above: Performed By: #### L 100.0100, L500.2500, L300.3900 #### [facility] [address] [place], [address] Automated blood hematocrit ( percentage)Ordered By: Navid Dominguez on 09-06-2024 Hematocrit (Bld) [Volume fraction] 33.6 % Low 40-54 [facility] Comment on above: Performed By: #### L 100.0100, L500.2500, L300.3900 #### [facility] [address] [place], [address] Automated lymphocyte count a s percentage of total leukocytesOrdered By: Navid Dominguez on 09-06-2024 Lymphocytes/100 WBC Auto (Unsp spec) 16.4 % Low 19-41 [facility] BUN/creatinine ratioOrdered By: Navid Dominguez on 09-06-2024 Urea nitrogen/Creatinine [Mass ratio] 14.4 mg/mg 10-20 [facility] Basic Metabolic Profile (BMP )on 09-06-2024 BUN/CRE 14.4 RATIO Normal 10-20 [facility] Comment on above: Performed By: #### M 200.1000, L509.7001, L101.9900, L501.6710 #### [facility] [address] [place], [address] ECRCL 64.10 ml/min Normal 50-250 [facility] Comment on above: Performed By: #### M 200.1000, L509.7001, L101.9900, L501.6710 #### [facility] [address] [place], [address] GAP 10 Normal 5-15 [facility] Comment on above: Performed By: #### M 200.1000, L509.7001, L101.9900, L501.6710 #### [facility] [address] [place], [address] Potassium [Moles/Vol] 3.5 mmol/L Normal 3.3-5.1 [facility] Comment on above: Performed By: #### M 200.1000, L509.7001, L101.9900, L501.6710 #### [facility] [address] [place], [address] Basophil percentageOrdered B y: Navid Dominguez on 09-06-2024 Basophils/100 WBC (Bld) 1.0 % Normal 0-1 [facility] Comment on above: Performed By: #### L 100.0100, L500.2500, L300.3900 #### [facility] [address] [place], [address] CBC W/Diff, Automatedon 08-21 Absolute Lymph 1.28 X10 3/uL Normal 0.83-4.51 [facility] Comment on above: Performed By: #### L 100.0100, L500.2500, L300.3900 #### [facility] [address] [place], [address] Absolute Neut 5.2 X10 3/uL Normal 2.0-7.7 [facility] Comment on above: Performed By: #### L 100.0100, L500.2500, L300.3900 #### [facility] [address] [place], [address] IG% 0.400 Normal 0.0-0.9 [facility] Comment on above: Result Comment: IG% - Immature Granulocytes (promyelocytes, myelocytes and metamyelocytes) > 1% indicates that a LEFT SHIFT is Present. Performed By: #### L 100.0100, L500.2500, L300.3900 #### [facility] [address] [place], [address] Lymphocytes/100 WBC (Bld) 16.4 % Low 19-41 [facility] Comment on above: Performed By: #### L 100.0100, L500.2500, L300.3900 #### [facility] [address] [place], [address] Nucleated RBC (Bld) [#/Vol] 0 10*3/uL Normal 0-5 [facility] Comment on above: Performed By: #### L 100.0100, L500.2500, L300.3900 #### [facility] [address] [place], [address] RDW SD 48.2 fl High 35.1-43.9 [facility] Comment on above: Performed By: #### L 100.0100, L500.2500, L300.3900 #### [facility] [address] [place], [address] Carbon dioxide, total [Moles /volume] in Central venous bloodOrdered By: Navid Dominguez on 09-06-2024 CO2 [Moles/Vol] 24.9 mmol/L Normal 21.0-32.0 [facility] Comment on above: Performed By: #### M 200.1000, L509.7001, L101.9900, L501.6710 #### [facility] [address] [place], [address] Chloride assayOrdered By: Cameron Dominguez on 09-06-2024 Chloride [Moles/Vol] 106 mmol/L Normal 98-108 [facility] Comment on above: Performed By: #### M 200.1000, L509.7001, L101.9900, L501.6710 #### [facility] [address] [place], [address] Eosinophil percentageOrdered By: Navid Dominguez on 09-06-2024 Eosinophils/100 WBC (Bld) 6.3 % High 0-5 [facility] Comment on above: Performed By: #### L 100.0100, L500.2500, L300.3900 #### [facility] [address] [place], [address] Erythrocyte distribution wid th ratioOrdered By: Navid Dominguez on 09-06-2024 Erythrocyte distribution width (RBC) [Ratio] 17.4 % High 11.6-14.6 [facility] Comment on above: Performed By: #### L 100.0100, L500.2500, L300.3900 #### [facility] [address] [place], [address] Erythrocyte distribution wid th standard deviationOrdered By: Navid Dominguez on 09-06-2024 Erythrocyte distribution width (RBC) [Ratio] 48.2 fl High 35.1-43.9 [facility] Glomerular filtration rate ( GFR) estimation/1.73 sq m using serum, plasma, or whole bOrdered By: Navid Dominguez on 09-06-2024 GFR/1.73 sq M.predicted among non-blacks MDRD (S/P/Bld) [Vol rate/Area] 87 mL/min/{1.73_m2} Normal >60 [facility] Comment on above: mL/min/1.73m2 CKD-EP I Creatinine Equation (2020) Result Comment: mL/m in/1.73m2 CKD-EPI Creatinine Equation (2020) Performed By: #### M 200.1000, L509.7001, L101.9900, L501.6710 #### [facility] [address] [place], [place], [id number] Hemoglobin measurementOrdere d By: Navid Dominguez on 09-06-2024 Hemoglobin (Bld) [Mass/Vol] 10.8 g/dL Low 13.0-16.5 [facility] Comment on above: Performed By: #### L 100.0100, L500.2500, L300.3900 #### [facility] [address] [facility] [place], [place], [id number] Immature granulocytes/100 WB C Auto (Bld)Ordered By: Navid Dominguez on 09-06-2024 Immature granulocytes/100 WBC (Bld) 0.400 % 0.0-0.9 [facility] Comment on above: IG% - Immature Granu locytes (promyelocytes, myelocytes and metamyelocytes) > 1% indicates that a LEFT SHIFT is Present. International normalized rat io (INR) calculationOrdered By: Navid Dominguez on 09-06-2024 INR Coag (Bld) [Relative time] 2.4 {INR} [facility] [facility] MCV (mean corpuscular volume ) determinationOrdered By: Navid Dominguez on 09-06-2024 MCV (RBC) [Entitic vol] 76.5 fL Low 80-94 [facility] Comment on above: Performed By: #### L 100.0100, L500.2500, L300.3900 #### [facility] [address] [place], [address] Mean corpuscular hemoglobin (MCH) determinationOrdered By: Navid Dominguez on 09-06-2024 MCH (RBC) [Entitic mass] 24.6 pg Low 27.0-32.0 [facility] Comment on above: Performed By: #### L 100.0100, L500.2500, L300.3900 #### [facility] [address] [place], [address] Mean corpuscular hemoglobin concentration (MCHC) determinationOrdered By: Navid Dominguez on 09-06-2024 MCHC (RBC) [Mass/Vol] 32.1 g/dL Normal 32-36 [facility] Comment on above: Performed By: #### L 100.0100, L500.2500, L300.3900 #### [facility] [address] [place], [address] Mean platelet volume determi nationOrdered By: Navid Dominguez on 09-06-2024 Platelet mean volume (Bld) [Entitic vol] 9.4 fL Normal 6.2-12.0 [facility] Comment on above: Performed By: #### L 100.0100, L500.2500, L300.3900 #### [facility] [address] [place], [address] Monocyte percentageOrdered B y: Navid Dominguez on 09-06-2024 Monocytes/100 WBC (Bld) 9.1 % Normal 0-10 [facility] Comment on above: Performed By: #### L 100.0100, L500.2500, L300.3900 #### [facility] [address] [place], [address] Neutrophil percentageOrdered By: Navid Dominguez on 09-06-2024 Neutrophils/100 WBC (Bld) 66.8 % Normal 47-70 [facility] Comment on above: Performed By: #### L 100.0100, L500.2500, L300.3900 #### [facility] [address] [place], [address] Nucleated red blood cell per centageOrdered By: Navid Dominguez on 09-06-2024 Nucleated RBC/100 WBC (Bld) [Ratio] 0 % 0-5 [facility] Platelet countOrdered By: Cameron Dominguez on 09-06-2024 Platelets (Bld) [#/Vol] 325 10*3/uL Normal 150-450 [facility] Comment on above: Performed By: #### L 100.0100, L500.2500, L300.3900 #### [facility] [address] [place], [address] Potassium measurement (mass/ volume)Ordered By: Navid Dominguez on 09-06-2024 Potassium (Unsp spec) [Mass/Vol] 3.5 mmol/L 3.3-5.1 [facility] Prothrombin Time w/INRon INR Coag (PPP) [Relative time] 2.4 {INR} Normal [facility] Comment on above: Performed By: #### M 200.1000, L509.7001, L101.9900, L501.6710 #### [facility] [address] [place], [address] Prothrombin timeOrdered By: Navid Dominguez on 09-06-2024 PT Coag (PPP) [Time] 27.0 s High 11.7-14.9 [facility] Comment on above: Performed By: #### M 200.1000, L509.7001, L101.9900, L501.6710 #### [facility] [address] [place], [address] Serum creatinine measurement (mass/volume)Ordered By: Navid Dominguez on 09-06-2024 Creatinine [Mass/Vol] 0.73 mg/dL Normal 0.70-1.20 [facility] Comment on above: Performed By: #### M 200.1000, L509.7001, L101.9900, L501.6710 #### [facility] [address] [place], [address] Serum glucose measurement (m ass/volume)Ordered By: Navid Dominguez on 09-06-2024 Glucose [Mass/Vol] 109 mg/dL High 70-99 [facility] Comment on above: Performed By: #### M 200.1000, L509.7001, L101.9900, L501.6710 #### [facility] [address] [place], [address] Serum or plasma calcium alvaro urement (mass/volume)Ordered By: Navid Dominguez on 09-06-2024 Calcium [Mass/Vol] 8.7 mg/dL Normal 7.6-11.0 [facility] Comment on above: Performed By: #### M 200.1000, L509.7001, L101.9900, L501.6710 #### [facility] [address] [place], [address] Serum or plasma urea nitroge n measurement (mass/volume)Ordered By: Navid Dominguez on 09-06-2024 Urea nitrogen [Mass/Vol] 11 mg/dL Normal 4-19 [facility] Comment on above: Performed By: #### M 200.1000, L509.7001, L101.9900, L501.6710 #### [facility] [address] [place], [address] Sodium levelOrdered By: Kamilah Dominguez on 09-06-2024 Sodium [Moles/Vol] 141 mmol/L Normal 133-145 [facility] Comment on above: Performed By: #### M 200.1000, L509.7001, L101.9900, L501.6710 #### [facility] [address] [place], [address] White blood cell (WBC) count Ordered By: Navid Dominguez on 09-06-2024 WBC (Bld) [#/Vol] 7.8 10*3/uL Normal 4.4-11.0 [facility] Comment on above: Performed By: #### L 100.0100, L500.2500, L300.3900 #### [facility] [address] [place], [address] Basic Metabolic Profile (BMP )on 09-05-2024 BUN/CRE 13.4 RATIO Normal 10-20 [facility] Comment on above: Performed By: #### M 200.1000, L509.7001, L101.9900, L501.6710 #### [facility] [address] [place], [address] Calcium [Mass/Vol] 8.6 mg/dL Normal 7.6-11.0 [facility] Comment on above: Performed By: #### M 200.1000, L509.7001, L101.9900, L501.6710 #### [facility] [address] [place], [address] Chloride [Moles/Vol] 105 mmol/L Normal 98-108 [facility] Comment on above: Performed By: #### M 200.1000, L509.7001, L101.9900, L501.6710 #### [facility] [address] [place], [address] CO2 [Moles/Vol] 21.9 mmol/L Normal 21.0-32.0 [facility] Comment on above: Performed By: #### M 200.1000, L509.7001, L101.9900, L501.6710 #### [facility] [address] [place], [address] Creatinine [Mass/Vol] 0.62 mg/dL Low 0.70-1.20 [facility] Comment on above: Performed By: #### M 200.1000, L509.7001, L101.9900, L501.6710 #### [facility] [address] [place], [address] ECRCL 64.10 ml/min Normal 50-250 [facility] Comment on above: Performed By: #### M 200.1000, L509.7001, L101.9900, L501.6710 #### [facility] [address] [place], [address] GAP 12 Normal 5-15 [facility] Comment on above: Performed By: #### M 200.1000, L509.7001, L101.9900, L501.6710 #### [facility] [address] [place], [address] GFR/1.73 sq M.predicted among non-blacks MDRD (S/P/Bld) [Vol rate/Area] 91 mL/min/{1.73_m2} Normal >60 [facility] Comment on above: Result Comment: mL/m in/1.73m2 CKD-EPI Creatinine Equation (2020) Performed By: #### M 200.1000, L509.7001, L101.9900, L501.6710 #### [facility] [address] [place], [address] Glucose [Mass/Vol] 119 mg/dL High 70-99 [facility] Comment on above: Performed By: #### M 200.1000, L509.7001, L101.9900, L501.6710 #### [facility] [address] [place], [address] Potassium [Moles/Vol] 3.3 mmol/L Normal 3.3-5.1 [facility] Comment on above: Performed By: #### M 200.1000, L509.7001, L101.9900, L501.6710 #### [facility] [address] [place], [address] Sodium [Moles/Vol] 139 mmol/L Normal 133-145 [facility] Comment on above: Performed By: #### M 200.1000, L509.7001, L101.9900, L501.6710 #### [facility] [address] [place], [address] Urea nitrogen [Mass/Vol] 8 mg/dL Normal 4-19 [facility] Comment on above: Performed By: #### M 200.1000, L509.7001, L101.9900, L501.6710 #### [facility] [address] [place], [address] Bilirubin Test strip Ql (U)O rdered By: Marta Black on 09-05-2024 Bilirubin Ql (U) Negative Negative [facility] CBC W/Diff, Automatedon 08-21 Absolute Lymph 0.96 X10 3/uL Normal 0.83-4.51 [facility] Comment on above: Performed By: #### M 200.1000, L509.7001, L101.9900, L501.6710 #### [facility] [address] [place], [address] Absolute Neut 7.6 X10 3/uL Normal 2.0-7.7 [facility] Comment on above: Performed By: #### M 200.1000, L509.7001, L101.9900, L501.6710 #### [facility] [address] [place], [address] Basophils/100 WBC (Bld) 0.7 % Normal 0-1 [facility] Comment on above: Performed By: #### M 200.1000, L509.7001, L101.9900, L501.6710 #### [facility] [address] [place], [address] Eosinophils/100 WBC (Bld) 4.0 % Normal 0-5 [facility] Comment on above: Performed By: #### M 200.1000, L509.7001, L101.9900, L501.6710 #### [facility] [address] [place], [address] Erythrocyte distribution width (RBC) [Ratio] 17.6 % High 11.6-14.6 [facility] Comment on above: Performed By: #### M 200.1000, L509.7001, L101.9900, L501.6710 #### [facility] [address] [place], [address] Hematocrit (Bld) [Volume fraction] 35.3 % Low 40-54 [facility] Comment on above: Performed By: #### M 200.1000, L509.7001, L101.9900, L501.6710 #### [facility] [address] [place], [address] Hemoglobin (Bld) [Mass/Vol] 11.3 g/dL Low 13.0-16.5 [facility] Comment on above: Performed By: #### M 200.1000, L509.7001, L101.9900, L501.6710 #### [facility] [address] [place], [address] IG% 0.400 Normal 0.0-0.9 [facility] Comment on above: Result Comment: IG% - Immature Granulocytes (promyelocytes, myelocytes and metamyelocytes) > 1% indicates that a LEFT SHIFT is Present. Performed By: #### M 200.1000, L509.7001, L101.9900, L501.6710 #### [facility] [address] [place], [address] Lymphocytes/100 WBC (Bld) 9.8 % Low 19-41 [facility] Comment on above: Performed By: #### M 200.1000, L509.7001, L101.9900, L501.6710 #### [facility] [address] [place], [address] MCH (RBC) [Entitic mass] 24.4 pg Low 27.0-32.0 [facility] Comment on above: Performed By: #### M 200.1000, L509.7001, L101.9900, L501.6710 #### [facility] [address] [place], [address] MCHC (RBC) [Mass/Vol] 32.0 g/dL Normal 32-36 [facility] Comment on above: Performed By: #### M 200.1000, L509.7001, L101.9900, L501.6710 #### [facility] [address] [place], [address] MCV (RBC) [Entitic vol] 76.2 fL Low 80-94 [facility] Comment on above: Performed By: #### M 200.1000, L509.7001, L101.9900, L501.6710 #### [facility] [address] [place], [address] Monocytes/100 WBC (Bld) 7.9 % Normal 0-10 [facility] Comment on above: Performed By: #### M 200.1000, L509.7001, L101.9900, L501.6710 #### [facility] [address] [place], [address] Neutrophils/100 WBC (Bld) 77.2 % High 47-70 [facility] Comment on above: Performed By: #### M 200.1000, L509.7001, L101.9900, L501.6710 #### [facility] [address] [place], [address] Nucleated RBC (Bld) [#/Vol] 0 10*3/uL Normal 0-5 [facility] Comment on above: Performed By: #### M 200.1000, L509.7001, L101.9900, L501.6710 #### [facility] [address] [place], [address] Platelet mean volume (Bld) [Entitic vol] 9.3 fL Normal 6.2-12.0 [facility] Comment on above: Performed By: #### M 200.1000, L509.7001, L101.9900, L501.6710 #### [facility] [address] [place], [address] Platelets (Bld) [#/Vol] 329 10*3/uL Normal 150-450 [facility] Comment on above: Performed By: #### M 200.1000, L509.7001, L101.9900, L501.6710 #### [facility] [address] [place], [address] RBC (Bld) [#/Vol] 4.63 10*6/uL Normal 4.6-6.2 [facility] Comment on above: Performed By: #### M 200.1000, L509.7001, L101.9900, L501.6710 #### [facility] [address] [place], [address] RDW SD 47.9 fl High 35.1-43.9 [facility] Comment on above: Performed By: #### M 200.1000, L509.7001, L101.9900, L501.6710 #### [facility] [address] [place], [address] WBC (Bld) [#/Vol] 9.8 10*3/uL Normal 4.4-11.0 [facility] Comment on above: Performed By: #### M 200.1000, L509.7001, L101.9900, L501.6710 #### [facility] [address] [place], [address] Ketones Test strip Ql (U)Ord ered By: Marta Black on 09-05-2024 Ketones Ql (U) Negative Negative [facility] Microscopic analysis of urin e for red blood cells (RBC)Ordered By: Marta Black on 09-05-2024 Microscopic analysis of urine for red blood cells (RBC) 0-5 SEEN /hpf 0-5 [facility] Mucus LM Ql (Urine sed)Order ed By: Marta Black on 09-05-2024 Mucus Ql (Urine sed) 0 SEEN /hpf [facility] Nitrite Test strip Ql (U)Ord ered By: Marta Black on 09-05-2024 Nitrite Ql (U) Negative Negative [facility] Protein Test strip Ql (U)Ord ered By: Marta Black on 09-05-2024 Protein Ql (U) 15 mg/dl High Negative [facility] Prothrombin Time w/INRon INR Coag (PPP) [Relative time] 2.2 {INR} Normal [facility] Comment on above: Performed By: #### M 200.1000, L509.7001, L101.9900, L501.6710 #### [facility] [address] [place], [address] PT Coag (PPP) [Time] 24.7 s High 11.7-14.9 [facility] Comment on above: Performed By: #### M 200.1000, L509.7001, L101.9900, L501.6710 #### [facility] [address] [place], [address] Squamous epithelial cells de tection in urine sediment by light microscopyOrdered By: Marta Black on 09-05-2024 Epithelial cells.squamous LM Ql (Urine sed) 0 SEEN /hpf 0-5 [facility] Urinalysis, Completeon 09-05 BACTERIA RARE Normal None Seen [facility] Comment on above: Order Comment: CLEAN CATCH Performed By: #### M 200.1000, L509.7001, L101.9900, L501.6710 #### [facility] [address] [place], [address] RBC 0-5 SEEN Normal 0-5 [facility] Comment on above: Order Comment: CLEAN CATCH Performed By: #### M 200.1000, L509.7001, L101.9900, L501.6710 #### [facility] [address] [place], [address] WBC 0-5 SEEN Normal 0-5 [facility] Comment on above: Order Comment: CLEAN CATCH Performed By: #### M 200.1000, L509.7001, L101.9900, L501.6710 #### [facility] [address] [place], [address] BILIRUBIN URINE Negative Normal Negative [facility] Comment on above: Order Comment: CLEAN CATCH Performed By: #### M 200.1000, L509.7001, L101.9900, L501.6710 #### [facility] [address] [place], [address] Clarity (U) Clear Normal Clear [facility] Comment on above: Order Comment: CLEAN CATCH Performed By: #### M 200.1000, L509.7001, L101.9900, L501.6710 #### [facility] [address] [place], [address] Color (U) Straw Normal Yellow [facility] Comment on above: Order Comment: CLEAN CATCH Performed By: #### M 200.1000, L509.7001, L101.9900, L501.6710 #### [facility] [address] [place], [address] GLUCOSE, UR Normal Normal Normal [facility] Comment on above: Order Comment: CLEAN CATCH Performed By: #### M 200.1000, L509.7001, L101.9900, L501.6710 #### [facility] [address] [place], [address] KETONE UR Negative Normal Negative [facility] Comment on above: Order Comment: CLEAN CATCH Performed By: #### M 200.1000, L509.7001, L101.9900, L501.6710 #### [facility] [address] [place], [address] LEUK ESTERASE Negative Normal Negative [facility] Comment on above: Order Comment: CLEAN CATCH Performed By: #### M 200.1000, L509.7001, L101.9900, L501.6710 #### [facility] [address] [place], [address] Nitrite Ql (U) Negative Normal Negative [facility] Comment on above: Order Comment: CLEAN CATCH Performed By: #### M 200.1000, L509.7001, L101.9900, L501.6710 #### [facility] [address] [place], [address] OCCULT BLOOD-UR 25 /ul Abnormal Negative [facility] Comment on above: Order Comment: CLEAN CATCH Performed By: #### M 200.1000, L509.7001, L101.9900, L501.6710 #### [facility] [address] [place], [address] pH UR 7.0 Normal 5.0 - 8.0 [facility] Comment on above: Order Comment: CLEAN CATCH Performed By: #### M 200.1000, L509.7001, L101.9900, L501.6710 #### [facility] [address] [place], [address] PROT DIPSTX 15 mg/dl Abnormal Negative [facility] Comment on above: Order Comment: CLEAN CATCH Performed By: #### M 200.1000, L509.7001, L101.9900, L501.6710 #### [facility] [address] [place], [address] SP.GR. DIPSTX 1.005 Normal 1.002-1.03 0 [facility] Comment on above: Order Comment: CLEAN CATCH Performed By: #### M 200.1000, L509.7001, L101.9900, L501.6710 #### [facility] [address] [place], [address] UROBILI Normal Normal Normal [facility] Comment on above: Order Comment: CLEAN CATCH Performed By: #### M 200.1000, L509.7001, L101.9900, L501.6710 #### [facility] [address] [place], [address] EPI,SQUAMOUS 0 SEEN Normal 0-5 [facility] Comment on above: Order Comment: CLEAN CATCH Performed By: #### M 200.1000, L509.7001, L101.9900, L501.6710 #### [facility] [address] [place], [address] Mucus Ql (Urine sed) 0 SEEN Normal [facility] Comment on above: Order Comment: CLEAN CATCH Performed By: #### M 200.1000, L509.7001, L101.9900, L501.6710 #### [facility] [address] [place], [address] Urine clarityOrdered By: Magnolia Black on 09-05-2024 Clarity (U) Clear Clear [facility] Urine color determinationOrd ered By: Marta Black on 09-05-2024 Color (U) Straw Yellow [facility] Urine glucose detectionOrder ed By: Marta Black on 09-05-2024 Glucose Ql (U) Normal mg/dl Normal [facility] Urine leukocyte esterase det ection by dipstickOrdered By: Marta Black on 09-05-2024 Leukocyte esterase Test strip Ql (U) Negative Negative [facility] Urine pHOrdered By: Marta Black on 09-05-2024 pH (U) 7.0 [pH] 5.0 - 8.0 [facility] Urine sediment bacteria coun t by microscopy (number/high power field)Ordered By: Marta Black on 09-05-2024 Bacteria LM.HPF (Urine sed) [#/Area] RARE /hpf None Seen [facility] Urine specific gravity measu rementOrdered By: Marta Black on 09-05-2024 Specific gravity (U) [Rel density] 1.005 1.002-1.03 0 [facility] Urine urobilinogen measureme ntOrdered By: Marta Black on 09-05-2024 Urobilinogen Ql (U) Normal mg/dl Normal [facility] White blood cell countOrdere d By: Marta Black on 09-05-2024 White blood cell count 0-5 SEEN /hpf 0-5 [facility] Basic Metabolic Profile (BMP )on 09-04-2024 BUN/CRE 17.3 RATIO Normal 10-20 [facility] Comment on above: Performed By: #### M 200.1000, L509.7001, L101.9900, L501.6710 #### [facility] [address] [place], [address] Calcium [Mass/Vol] 8.2 mg/dL Normal 7.6-11.0 [facility] Comment on above: Performed By: #### M 200.1000, L509.7001, L101.9900, L501.6710 #### [facility] [address] [place], [address] Chloride [Moles/Vol] 107 mmol/L Normal 98-108 [facility] Comment on above: Performed By: #### M 200.1000, L509.7001, L101.9900, L501.6710 #### [facility] [address] [place], [address] CO2 [Moles/Vol] 20.9 mmol/L Low 21.0-32.0 [facility] Comment on above: Performed By: #### M 200.1000, L509.7001, L101.9900, L501.6710 #### [facility] [address] [place], [address] Creatinine [Mass/Vol] 0.72 mg/dL Normal 0.70-1.20 [facility] Comment on above: Performed By: #### M 200.1000, L509.7001, L101.9900, L501.6710 #### [facility] [address] [place], [address] ECRCL 64.10 ml/min Normal 50-250 [facility] Comment on above: Performed By: #### M 200.1000, L509.7001, L101.9900, L501.6710 #### [facility] [address] [place], [address] GAP 11 Normal 5-15 [facility] Comment on above: Performed By: #### M 200.1000, L509.7001, L101.9900, L501.6710 #### [facility] [address] [place], [address] GFR/1.73 sq M.predicted among non-blacks MDRD (S/P/Bld) [Vol rate/Area] 87 mL/min/{1.73_m2} Normal >60 [facility] Comment on above: Result Comment: mL/m in/1.73m2 CKD-EPI Creatinine Equation (2020) Performed By: #### M 200.1000, L509.7001, L101.9900, L501.6710 #### [facility] [address] [place], [address] Glucose [Mass/Vol] 120 mg/dL High 70-99 [facility] Comment on above: Performed By: #### M 200.1000, L509.7001, L101.9900, L501.6710 #### [facility] [address] [place], [address] Potassium [Moles/Vol] 3.5 mmol/L Normal 3.3-5.1 [facility] Comment on above: Performed By: #### M 200.1000, L509.7001, L101.9900, L501.6710 #### [facility] [address] [place], [address] Sodium [Moles/Vol] 139 mmol/L Normal 133-145 [facility] Comment on above: Performed By: #### M 200.1000, L509.7001, L101.9900, L501.6710 #### [facility] [address] [place], [address] Urea nitrogen [Mass/Vol] 12 mg/dL Normal 4-19 [facility] Comment on above: Performed By: #### M 200.1000, L509.7001, L101.9900, L501.6710 #### [facility] [address] [place], [address] CBC W/Diff, Automatedon -03 27-2024 Absolute Lymph 0.89 X10 3/uL Normal 0.83-4.51 [facility] Comment on above: Performed By: #### M 200.1000, L509.7001, L101.9900, L501.6710 #### [facility] [address] [place], [address] Absolute Neut 8.9 X10 3/uL High 2.0-7.7 [facility] Comment on above: Performed By: #### M 200.1000, L509.7001, L101.9900, L501.6710 #### [facility] [address] [place], [address] Basophils/100 WBC (Bld) 0.8 % Normal 0-1 [facility] Comment on above: Performed By: #### M 200.1000, L509.7001, L101.9900, L501.6710 #### [facility] [address] [place], [address] Eosinophils/100 WBC (Bld) 5.3 % High 0-5 [facility] Comment on above: Performed By: #### M 200.1000, L509.7001, L101.9900, L501.6710 #### [facility] [address] [place], [address] Erythrocyte distribution width (RBC) [Ratio] 17.5 % High 11.6-14.6 [facility] Comment on above: Performed By: #### M 200.1000, L509.7001, L101.9900, L501.6710 #### [facility] [address] [place], [address] Hematocrit (Bld) [Volume fraction] 33.3 % Low 40-54 [facility] Comment on above: Performed By: #### M 200.1000, L509.7001, L101.9900, L501.6710 #### [facility] [address] [place], [address] Hemoglobin (Bld) [Mass/Vol] 10.7 g/dL Low 13.0-16.5 [facility] Comment on above: Performed By: #### M 200.1000, L509.7001, L101.9900, L501.6710 #### [facility] [address] [place], [address] IG% 0.400 Normal 0.0-0.9 [facility] Comment on above: Result Comment: IG% - Immature Granulocytes (promyelocytes, myelocytes and metamyelocytes) > 1% indicates that a LEFT SHIFT is Present. Performed By: #### M 200.1000, L509.7001, L101.9900, L501.6710 #### [facility] [address] [place], [address] Lymphocytes/100 WBC (Bld) 7.8 % Low 19-41 [facility] Comment on above: Performed By: #### M 200.1000, L509.7001, L101.9900, L501.6710 #### [facility] [address] [place], [address] MCH (RBC) [Entitic mass] 24.6 pg Low 27.0-32.0 [facility] Comment on above: Performed By: #### M 200.1000, L509.7001, L101.9900, L501.6710 #### [facility] [address] [place], [address] MCHC (RBC) [Mass/Vol] 32.1 g/dL Normal 32-36 [facility] Comment on above: Performed By: #### M 200.1000, L509.7001, L101.9900, L501.6710 #### [facility] [address] [place], [address] MCV (RBC) [Entitic vol] 76.6 fL Low 80-94 [facility] Comment on above: Performed By: #### M 200.1000, L509.7001, L101.9900, L501.6710 #### [facility] [address] [place], [address] Monocytes/100 WBC (Bld) 7.7 % Normal 0-10 [facility] Comment on above: Performed By: #### M 200.1000, L509.7001, L101.9900, L501.6710 #### [facility] [address] [place], [address] Neutrophils/100 WBC (Bld) 78.0 % High 47-70 [facility] Comment on above: Performed By: #### M 200.1000, L509.7001, L101.9900, L501.6710 #### [facility] [address] [place], [address] Nucleated RBC (Bld) [#/Vol] 0 10*3/uL Normal 0-5 [facility] Comment on above: Performed By: #### M 200.1000, L509.7001, L101.9900, L501.6710 #### [facility] [address] [place], [address] Platelet mean volume (Bld) [Entitic vol] 10.6 fL Normal 6.2-12.0 [facility] Comment on above: Performed By: #### M 200.1000, L509.7001, L101.9900, L501.6710 #### [facility] [address] [place], [address] Platelets (Bld) [#/Vol] 305 10*3/uL Normal 150-450 [facility] Comment on above: Performed By: #### M 200.1000, L509.7001, L101.9900, L501.6710 #### [facility] [address] [place], [address] RBC (Bld) [#/Vol] 4.35 10*6/uL Low 4.6-6.2 [facility] Comment on above: Performed By: #### M 200.1000, L509.7001, L101.9900, L501.6710 #### [facility] [address] [place], [address] RDW SD 48.3 fl High 35.1-43.9 [facility] Comment on above: Performed By: #### M 200.1000, L509.7001, L101.9900, L501.6710 #### [facility] [address] [place], [address] WBC (Bld) [#/Vol] 11.4 10*3/uL High 4.4-11.0 [facility] Comment on above: Performed By: #### M 200.1000, L509.7001, L101.9900, L501.6710 #### [facility] [address] [place], [address] Prothrombin Time w/INRon INR Coag (PPP) [Relative time] 1.9 {INR} Normal [facility] Comment on above: Performed By: #### L 300.3900 #### [facility] [address] [place], [address] PT Coag (PPP) [Time] 21.8 s High 11.7-14.9 [facility] Comment on above: Performed By: #### L 300.3900 #### [facility] [address] [place], [address] Basic Metabolic Profile (BMP )on 09-03-2024 BUN/CRE 13.3 RATIO Normal 10-20 [facility] Comment on above: Performed By: #### M 200.1000, L509.7001, L101.9900, L501.6710 #### [facility] [address] [place], [address] Calcium [Mass/Vol] 8.5 mg/dL Normal 7.6-11.0 [facility] Comment on above: Performed By: #### M 200.1000, L509.7001, L101.9900, L501.6710 #### [facility] [address] [place], [address] Chloride [Moles/Vol] 104 mmol/L Normal 98-108 [facility] Comment on above: Performed By: #### M 200.1000, L509.7001, L101.9900, L501.6710 #### [facility] [address] [place], [address] CO2 [Moles/Vol] 19.1 mmol/L Low 21.0-32.0 [facility] Comment on above: Performed By: #### M 200.1000, L509.7001, L101.9900, L501.6710 #### [facility] [address] [place], [address] Creatinine [Mass/Vol] 0.74 mg/dL Normal 0.70-1.20 [facility] Comment on above: Performed By: #### M 200.1000, L509.7001, L101.9900, L501.6710 #### [facility] [address] [place], [address] ECRCL 64.10 ml/min Normal 50-250 [facility] Comment on above: Performed By: #### M 200.1000, L509.7001, L101.9900, L501.6710 #### [facility] [address] [place], [address] GAP 13 Normal 5-15 [facility] Comment on above: Performed By: #### M 200.1000, L509.7001, L101.9900, L501.6710 #### [facility] [address] [place], [address] GFR/1.73 sq M.predicted among non-blacks MDRD (S/P/Bld) [Vol rate/Area] 87 mL/min/{1.73_m2} Normal >60 [facility] Comment on above: Result Comment: mL/m in/1.73m2 CKD-EPI Creatinine Equation (2020) Performed By: #### M 200.1000, L509.7001, L101.9900, L501.6710 #### [facility] [address] [place], [address] Glucose [Mass/Vol] 111 mg/dL High 70-99 [facility] Comment on above: Performed By: #### M 200.1000, L509.7001, L101.9900, L501.6710 #### [facility] [address] [place], [address] Potassium [Moles/Vol] 3.5 mmol/L Normal 3.3-5.1 [facility] Comment on above: Performed By: #### M 200.1000, L509.7001, L101.9900, L501.6710 #### [facility] [address] [place], [address] Sodium [Moles/Vol] 137 mmol/L Normal 133-145 [facility] Comment on above: Performed By: #### M 200.1000, L509.7001, L101.9900, L501.6710 #### [facility] [address] [place], [address] Urea nitrogen [Mass/Vol] 10 mg/dL Normal 4-19 [facility] Comment on above: Performed By: #### M 200.1000, L509.7001, L101.9900, L501.6710 #### [facility] [address] [place], [address] CBC W/Diff, Automatedon -03 26-2024 Absolute Lymph 0.82 X10 3/uL Low 0.83-4.51 [facility] Comment on above: Performed By: #### M 200.1000, L509.7001, L101.9900, L501.6710 #### [facility] [address] [place], [address] Absolute Neut 10.2 X10 3/uL High 2.0-7.7 [facility] Comment on above: Performed By: #### M 200.1000, L509.7001, L101.9900, L501.6710 #### [facility] [address] [place], [address] Basophils/100 WBC (Bld) 0.7 % Normal 0-1 [facility] Comment on above: Performed By: #### M 200.1000, L509.7001, L101.9900, L501.6710 #### [facility] [address] [place], [address] Eosinophils/100 WBC (Bld) 2.8 % Normal 0-5 [facility] Comment on above: Performed By: #### M 200.1000, L509.7001, L101.9900, L501.6710 #### [facility] [address] [place], [address] Erythrocyte distribution width (RBC) [Ratio] 17.5 % High 11.6-14.6 [facility] Comment on above: Performed By: #### M 200.1000, L509.7001, L101.9900, L501.6710 #### [facility] [address] [place], [address] Hematocrit (Bld) [Volume fraction] 35.6 % Low 40-54 [facility] Comment on above: Performed By: #### M 200.1000, L509.7001, L101.9900, L501.6710 #### [facility] [address] [place], [address] Hemoglobin (Bld) [Mass/Vol] 11.3 g/dL Low 13.0-16.5 [facility] Comment on above: Performed By: #### M 200.1000, L509.7001, L101.9900, L501.6710 #### [facility] [address] [place], [address] IG% 0.400 Normal 0.0-0.9 [facility] Comment on above: Result Comment: IG% - Immature Granulocytes (promyelocytes, myelocytes and metamyelocytes) > 1% indicates that a LEFT SHIFT is Present. Performed By: #### M 200.1000, L509.7001, L101.9900, L501.6710 #### [facility] [address] [place], [address] Lymphocytes/100 WBC (Bld) 6.7 % Low 19-41 [facility] Comment on above: Performed By: #### M 200.1000, L509.7001, L101.9900, L501.6710 #### [facility] [address] [place], [address] MCH (RBC) [Entitic mass] 24.7 pg Low 27.0-32.0 [facility] Comment on above: Performed By: #### M 200.1000, L509.7001, L101.9900, L501.6710 #### [facility] [address] [place], [address] MCHC (RBC) [Mass/Vol] 31.7 g/dL Low 32-36 [facility] Comment on above: Performed By: #### M 200.1000, L509.7001, L101.9900, L501.6710 #### [facility] [address] [place], [address] MCV (RBC) [Entitic vol] 77.7 fL Low 80-94 [facility] Comment on above: Performed By: #### M 200.1000, L509.7001, L101.9900, L501.6710 #### [facility] [address] [place], [address] Monocytes/100 WBC (Bld) 6.0 % Normal 0-10 [facility] Comment on above: Performed By: #### M 200.1000, L509.7001, L101.9900, L501.6710 #### [facility] [address] [place], [address] Neutrophils/100 WBC (Bld) 83.4 % High 47-70 [facility] Comment on above: Performed By: #### M 200.1000, L509.7001, L101.9900, L501.6710 #### [facility] [address] [place], [address] Nucleated RBC (Bld) [#/Vol] 0 10*3/uL Normal 0-5 [facility] Comment on above: Performed By: #### M 200.1000, L509.7001, L101.9900, L501.6710 #### [facility] [address] [place], [address] Platelet mean volume (Bld) [Entitic vol] 9.9 fL Normal 6.2-12.0 [facility] Comment on above: Performed By: #### M 200.1000, L509.7001, L101.9900, L501.6710 #### [facility] [address] [place], [address] Platelets (Bld) [#/Vol] 252 10*3/uL Normal 150-450 [facility] Comment on above: Performed By: #### M 200.1000, L509.7001, L101.9900, L501.6710 #### [facility] [address] [place], [address] RBC (Bld) [#/Vol] 4.58 10*6/uL Low 4.6-6.2 [facility] Comment on above: Performed By: #### M 200.1000, L509.7001, L101.9900, L501.6710 #### [facility] [address] [place], [address] RDW SD 48.2 fl High 35.1-43.9 [facility] Comment on above: Performed By: #### M 200.1000, L509.7001, L101.9900, L501.6710 #### [facility] [address] [place], [address] WBC (Bld) [#/Vol] 12.3 10*3/uL High 4.4-11.0 [facility] Comment on above: Performed By: #### M 200.1000, L509.7001, L101.9900, L501.6710 #### [facility] [address] [place], [address] Prothrombin Time w/INRon INR Coag (PPP) [Relative time] 1.8 {INR} Normal [facility] Comment on above: Performed By: #### L 300.3900 #### [facility] [address] [place], [address] PT Coag (PPP) [Time] 20.9 s High 11.7-14.9 [facility] Comment on above: Performed By: #### L 300.3900 #### [facility] [address] [place], [address] Trough vancomycin levelOrder ed By: Marta Black on 09-03-2024 Vancomycin trough [Mass/Vol] 8.2 ug/mL 5.0-15.0 [facility] Comment on above: Recommended goal tro [...] therapy recommended for serious lifethreatening infections include:- Lvdnageihy-Nryeldyakjuf-Axkixowvx (Ventilator/Healtcare Associated)-Sepsis PLEASE CONTACT PHARMACY SERVICES (#[id number]) FOR INTERPRETATIONOF RESULTS. Vancomycin, Trough Levelon 0 09-03-2024 VANCO, TROUGH 8.2 ug/mL Normal 5.0-15.0 [facility] Comment on above: Order Comment: Comme nts: Trough to be drawn 30 mins prior to scheduled [id number] Result Comment: Ilya mmended goal trough ranges [...] (Ventilator/Healtcare Associated) -Sepsis PLEASE CONTACT PHARMACY SERVICES (#[id number]) FOR INTERPRETATION OF RESULTS. Performed By: #### M 200.1000, L509.7001, L101.9900, L501.6710 #### [facility] [address] [place], [address] Basic Metabolic Profile (BMP )on 09-02-2024 BUN/CRE 18.9 RATIO Normal 10-20 [facility] Comment on above: Performed By: #### M 200.1000, L509.7001, L101.9900, L501.6710 #### [facility] [address] [place], [address] Calcium [Mass/Vol] 8.5 mg/dL Normal 7.6-11.0 [facility] Comment on above: Performed By: #### M 200.1000, L509.7001, L101.9900, L501.6710 #### [facility] [address] [place], [address] Chloride [Moles/Vol] 105 mmol/L Normal 98-108 [facility] Comment on above: Performed By: #### M 200.1000, L509.7001, L101.9900, L501.6710 #### [facility] [address] [place], [address] CO2 [Moles/Vol] 14.2 mmol/L Low 21.0-32.0 [facility] Comment on above: Performed By: #### M 200.1000, L509.7001, L101.9900, L501.6710 #### [facility] [address] [place], [address] Creatinine [Mass/Vol] 0.75 mg/dL Normal 0.70-1.20 [facility] Comment on above: Performed By: #### M 200.1000, L509.7001, L101.9900, L501.6710 #### [facility] [address] [place], [address] ECRCL 64.10 ml/min Normal 50-250 [facility] Comment on above: Performed By: #### M 200.1000, L509.7001, L101.9900, L501.6710 #### [facility] [address] [place], [address] GAP 15 Normal 5-15 [facility] Comment on above: Performed By: #### M 200.1000, L509.7001, L101.9900, L501.6710 #### [facility] [address] [place], [address] GFR/1.73 sq M.predicted among non-blacks MDRD (S/P/Bld) [Vol rate/Area] 86 mL/min/{1.73_m2} Normal >60 [facility] Comment on above: Result Comment: mL/m in/1.73m2 CKD-EPI Creatinine Equation (2020) Performed By: #### M 200.1000, L509.7001, L101.9900, L501.6710 #### [facility] [address] [place], [address] Glucose [Mass/Vol] 105 mg/dL High 70-99 [facility] Comment on above: Performed By: #### M 200.1000, L509.7001, L101.9900, L501.6710 #### [facility] [address] [place], [address] Potassium [Moles/Vol] 4.3 mmol/L Normal 3.3-5.1 [facility] Comment on above: Result Comment: Hemo lysis present, Results??could be affected. ?? Performed By: #### M 200.1000, L509.7001, L101.9900, L501.6710 #### [facility] [address] [place], [address] Sodium [Moles/Vol] 135 mmol/L Normal 133-145 [facility] Comment on above: Performed By: #### M 200.1000, L509.7001, L101.9900, L501.6710 #### [facility] [address] [place], [address] Urea nitrogen [Mass/Vol] 14 mg/dL Normal 4-19 [facility] Comment on above: Performed By: #### M 200.1000, L509.7001, L101.9900, L501.6710 #### [facility] [address] [place], [address] CBC W/Diff, Automatedon 08-21-2024 Absolute Lymph 0.52 X10 3/uL Low 0.83-4.51 [facility] Comment on above: Performed By: #### M 200.1000, L509.7001, L101.9900, L501.6710 #### [facility] [address] [place], [address] Absolute Neut 12.1 X10 3/uL High 2.0-7.7 [facility] Comment on above: Performed By: #### M 200.1000, L509.7001, L101.9900, L501.6710 #### [facility] [address] [place], [address] Basophils/100 WBC (Bld) 0.6 % Normal 0-1 [facility] Comment on above: Performed By: #### M 200.1000, L509.7001, L101.9900, L501.6710 #### [facility] [address] [place], [address] Eosinophils/100 WBC (Bld) 2.2 % Normal 0-5 [facility] Comment on above: Performed By: #### M 200.1000, L509.7001, L101.9900, L501.6710 #### [facility] [address] [place], [address] Erythrocyte distribution width (RBC) [Ratio] 17.8 % High 11.6-14.6 [facility] Comment on above: Performed By: #### M 200.1000, L509.7001, L101.9900, L501.6710 #### [facility] [address] [place], [address] Hematocrit (Bld) [Volume fraction] 39.9 % Low 40-54 [facility] Comment on above: Performed By: #### M 200.1000, L509.7001, L101.9900, L501.6710 #### [facility] [address] [place], [address] Hemoglobin (Bld) [Mass/Vol] 11.9 g/dL Low 13.0-16.5 [facility] Comment on above: Performed By: #### M 200.1000, L509.7001, L101.9900, L501.6710 #### [facility] [address] [place], [address] IG% 0.700 Normal 0.0-0.9 [facility] Comment on above: Result Comment: IG% - Immature Granulocytes (promyelocytes, myelocytes and metamyelocytes) > 1% indicates that a LEFT SHIFT is Present. Performed By: #### M 200.1000, L509.7001, L101.9900, L501.6710 #### [facility] [address] [place], [address] Lymphocytes/100 WBC (Bld) 3.8 % Low 19-41 [facility] Comment on above: Performed By: #### M 200.1000, L509.7001, L101.9900, L501.6710 #### [facility] [address] [place], [address] MCH (RBC) [Entitic mass] 24.5 pg Low 27.0-32.0 [facility] Comment on above: Performed By: #### M 200.1000, L509.7001, L101.9900, L501.6710 #### [facility] [address] [place], [address] MCHC (RBC) [Mass/Vol] 29.8 g/dL Low 32-36 [facility] Comment on above: Performed By: #### M 200.1000, L509.7001, L101.9900, L501.6710 #### [facility] [address] [place], [address] MCV (RBC) [Entitic vol] 82.3 fL Normal 80-94 [facility] Comment on above: Performed By: #### M 200.1000, L509.7001, L101.9900, L501.6710 #### [facility] [address] [place], [address] Monocytes/100 WBC (Bld) 4.8 % Normal 0-10 [facility] Comment on above: Performed By: #### M 200.1000, L509.7001, L101.9900, L501.6710 #### [facility] [address] [place], [address] Neutrophils/100 WBC (Bld) 87.9 % High 47-70 [facility] Comment on above: Performed By: #### M 200.1000, L509.7001, L101.9900, L501.6710 #### [facility] [address] [place], [address] Nucleated RBC (Bld) [#/Vol] 0 10*3/uL Normal 0-5 [facility] Comment on above: Performed By: #### M 200.1000, L509.7001, L101.9900, L501.6710 #### [facility] [address] [place], [address] Platelet mean volume (Bld) [Entitic vol] 10.6 fL Normal 6.2-12.0 [facility] Comment on above: Performed By: #### M 200.1000, L509.7001, L101.9900, L501.6710 #### [facility] [address] [place], [address] Platelets (Bld) [#/Vol] 227 10*3/uL Normal 150-450 [facility] Comment on above: Performed By: #### M 200.1000, L509.7001, L101.9900, L501.6710 #### [facility] [address] [place], [address] RBC (Bld) [#/Vol] 4.85 10*6/uL Normal 4.6-6.2 [facility] Comment on above: Performed By: #### M 200.1000, L509.7001, L101.9900, L501.6710 #### [facility] [address] [place], [address] RDW SD 52.3 fl High 35.1-43.9 [facility] Comment on above: Performed By: #### M 200.1000, L509.7001, L101.9900, L501.6710 #### [facility] [address] [place], [address] WBC (Bld) [#/Vol] 13.8 10*3/uL High 4.4-11.0 [facility] Comment on above: Performed By: #### M 200.1000, L509.7001, L101.9900, L501.6710 #### [facility] [address] [place], [address] Prothrombin Time w/INRon INR Coag (PPP) [Relative time] 1.9 {INR} Normal [facility] Comment on above: Performed By: #### M 200.1000, L509.7001, L101.9900, L501.6710 #### [facility] [address] [place], [address] PT Coag (PPP) [Time] 22.1 s High 11.7-14.9 [facility] Comment on above: Performed By: #### M 200.1000, L509.7001, L101.9900, L501.6710 #### [facility] [address] [place], [address] RESPIRATORY PANEL MOLECULARo n 09-02-2024 RP PANEL ADENOVIRUS Not Detected INFLUENZA A Not Detected INFLUENZA A (SUBTYPE H1) Not Detected INFLUENZA A (SUBTYPE H3) Not Detected INFLUENZA B Not Detected HUMAN METAPHNEUMO Not Detected PARAINFLUENZA 1 Not Detected PARAINFLUENZA 2 Not Detected PARAINFLUENZA 3 Not Detected PARAINFLUENZA 4 Not Detected RHINOVIRUS Not Detected RSV A Not Detected RSV B Not Detected Normal [facility] Comment on above: Performed By: #### M 200.1000, L509.7001, L101.9900, L501.6710 #### [facility] [address] [place], [address] Absolute lymphocyte countOrd ered By: Inderjit Gillespie on 09-01-2024 Lymphocytes Auto (Unsp spec) [#/Vol] 0.62 10*3/uL Low 0.83-4.51 [facility] Absolute neutrophil countOrd ered By: Inderjit Gillespie on 09-01-2024 Neutrophils (Bld) [#/Vol] 11.3 10*3/uL High 2.0-7.7 [facility] Anion gap in Serum or Plasma Ordered By: Inderjit Gillespie on 09-01-2024 Anion gap [Moles/Vol] 10 mmol/L 5-15 [facility] Automated lymphocyte count a s percentage of total leukocytesOrdered By: Inderjit Gillespie on 09-01-2024 Lymphocytes/100 WBC Auto (Unsp spec) 4.8 % Low 19-41 [facility] BUN/creatinine ratioOrdered By: Inderjit Gillespie on 09-01-2024 Urea nitrogen/Creatinine [Mass ratio] 21.6 mg/mg High - [facility] Basic Metabolic Profile (BMP )on 09-01-2024 BUN/CRE 21.6 RATIO High 01-09 [facility] Comment on above: Performed By: #### M 200.1000, L509.7001, L101.9900, L501.6710 #### [facility] [address] [place], [address] Calcium [Mass/Vol] 8.8 mg/dL Normal 7.6-11.0 [facility] Comment on above: Performed By: #### M 200.1000, L509.7001, L101.9900, L501.6710 #### [facility] [address] [place], [address] Chloride [Moles/Vol] 105 mmol/L Normal 98-108 [facility] Comment on above: Performed By: #### M 200.1000, L509.7001, L101.9900, L501.6710 #### [facility] [address] [place], [address] CO2 [Moles/Vol] 24.3 mmol/L Normal 21.0-32.0 [facility] Comment on above: Performed By: #### M 200.1000, L509.7001, L101.9900, L501.6710 #### [facility] [address] [place], [address] Creatinine [Mass/Vol] 0.77 mg/dL Normal 0.70-1.20 [facility] Comment on above: Performed By: #### M 200.1000, L509.7001, L101.9900, L501.6710 #### [facility] [address] [place], [address] ECRCL 68.71 ml/min Normal 50-250 [facility] Comment on above: Performed By: #### M 200.1000, L509.7001, L101.9900, L501.6710 #### [facility] [address] [place], [address] GAP 10 Normal 5-15 [facility] Comment on above: Performed By: #### M 200.1000, L509.7001, L101.9900, L501.6710 #### [facility] [address] [place], [address] GFR/1.73 sq M.predicted among non-blacks MDRD (S/P/Bld) [Vol rate/Area] 86 mL/min/{1.73_m2} Normal >60 [facility] Comment on above: Result Comment: mL/m in/1.73m2 CKD-EPI Creatinine Equation (2020) Performed By: #### M 200.1000, L509.7001, L101.9900, L501.6710 #### [facility] [address] [place], [address] Glucose [Mass/Vol] 112 mg/dL High 70-99 [facility] [facility] Comment on above: Performed By: #### M 200.1000, L509.7001, L101.9900, L501.6710 #### [facility] [address] [place], [address] Potassium [Moles/Vol] 3.7 mmol/L Normal 3.3-5.1 [facility] Comment on above: Performed By: #### M 200.1000, L509.7001, L101.9900, L501.6710 #### [facility] [address] [place], [address] Sodium [Moles/Vol] 139 mmol/L Normal 133-145 [facility] Comment on above: Performed By: #### M 200.1000, L509.7001, L101.9900, L501.6710 #### [facility] [address] [place], [address] Urea nitrogen [Mass/Vol] 17 mg/dL Normal 4-19 [facility] Comment on above: Performed By: #### M 200.1000, L509.7001, L101.9900, L501.6710 #### [facility] [address] [place], [address] Basophil percentageOrdered B y: Inderjit Gillespie on 09-01-2024 Basophils/100 WBC (Bld) 0.4 % 0-1 [facility] Bilirubin Test strip Ql (U)O rdered By: Inderjit Gillespie on 09-01-2024 Bilirubin Ql (U) Negative Negative [facility] Blood cultureOrdered By: Magnolia Black on 09-01-2024 Bacteria identified Cx Nom (Bld) No growth in 5 days. [facility] Brain/Head without Contrasto n 09-01-2024 Brain/Head without Contrast [facility] Imaging Services [address] [facility] [address] [place], [place] [address] Brain/Head without Contrast MR#: [id number] Acct: [id number] Name: ROBY FLORES Rep #: [id number] : 1935 M 89 From: Jose harris MD PCP: Dr. Stas Mora MD Status: REG ER Study: Brain/Head without Contrast Date of Exam: 08/21 05/17 Exam# [id number] Ordering Dr: Inderjit Gillespie MD PROCEDURE: BRAIN/HEAD [...] of the left maxillary sinus. Reading Location: [place] [address] CC: Dr. Inderjit Gillespie MD; Dr. Stas Mora MD Utilization Reviewer: Signed Normal [facility] CBC W/Diff, Automatedon 08-21 Absolute Lymph 0.62 X10 3/uL Low 0.83-4.51 [facility] Comment on above: Performed By: #### M 200.1000, L509.7001, L101.9900, L501.6710 #### [facility] [address] [place], [address] Absolute Neut 11.3 X10 3/uL High 2.0-7.7 [facility] Comment on above: Performed By: #### M 200.1000, L509.7001, L101.9900, L501.6710 #### [facility] [address] [place], [address] Basophils/100 WBC (Bld) 0.4 % Normal 0-1 [facility] Comment on above: Performed By: #### M 200.1000, L509.7001, L101.9900, L501.6710 #### [facility] [address] [place], [address] Eosinophils/100 WBC (Bld) 1.2 % Normal 0-5 [facility] Comment on above: Performed By: #### M 200.1000, L509.7001, L101.9900, L501.6710 #### [facility] [address] [place], [address] Erythrocyte distribution width (RBC) [Ratio] 17.2 % High 11.6-14.6 [facility] Comment on above: Performed By: #### M 200.1000, L509.7001, L101.9900, L501.6710 #### [facility] [address] [place], [address] Hematocrit (Bld) [Volume fraction] 36.8 % Low 40-54 [facility] Comment on above: Performed By: #### M 200.1000, L509.7001, L101.9900, L501.6710 #### [facility] [address] [place], [address] Hemoglobin (Bld) [Mass/Vol] 11.6 g/dL Low 13.0-16.5 [facility] Comment on above: Performed By: #### M 200.1000, L509.7001, L101.9900, L501.6710 #### [facility] [address] [place], [address] IG% 0.400 Normal 0.0-0.9 [facility] Comment on above: Result Comment: IG% - Immature Granulocytes (promyelocytes, myelocytes and metamyelocytes) > 1% indicates that a LEFT SHIFT is Present. Performed By: #### M 200.1000, L509.7001, L101.9900, L501.6710 #### [facility] [address] [place], [address] Lymphocytes/100 WBC (Bld) 4.8 % Low 19-41 [facility] Comment on above: Performed By: #### M 200.1000, L509.7001, L101.9900, L501.6710 #### [facility] [address] [place], [address] MCH (RBC) [Entitic mass] 24.6 pg Low 27.0-32.0 [facility] Comment on above: Performed By: #### M 200.1000, L509.7001, L101.9900, L501.6710 #### [facility] [address] [place], [address] MCHC (RBC) [Mass/Vol] 31.5 g/dL Low 32-36 [facility] Comment on above: Performed By: #### M 200.1000, L509.7001, L101.9900, L501.6710 #### [facility] [address] [place], [address] MCV (RBC) [Entitic vol] 78.0 fL Low 80-94 [facility] Comment on above: Performed By: #### M 200.1000, L509.7001, L101.9900, L501.6710 #### [facility] [address] [place], [address] Monocytes/100 WBC (Bld) 5.7 % Normal 0-10 [facility] Comment on above: Performed By: #### M 200.1000, L509.7001, L101.9900, L501.6710 #### [facility] [address] [place], [address] Neutrophils/100 WBC (Bld) 87.5 % High 47-70 [facility] Comment on above: Performed By: #### M 200.1000, L509.7001, L101.9900, L501.6710 #### [facility] [address] [place], [address] Nucleated RBC (Bld) [#/Vol] 0 10*3/uL Normal 0-5 [facility] Comment on above: Performed By: #### M 200.1000, L509.7001, L101.9900, L501.6710 #### [facility] [address] [place], [address] Platelet mean volume (Bld) [Entitic vol] 9.4 fL Normal 6.2-12.0 [facility] Comment on above: Performed By: #### M 200.1000, L509.7001, L101.9900, L501.6710 #### [facility] [address] [place], [address] Platelets (Bld) [#/Vol] 258 10*3/uL Normal 150-450 [facility] Comment on above: Performed By: #### M 200.1000, L509.7001, L101.9900, L501.6710 #### [facility] [address] [place], [address] RBC (Bld) [#/Vol] 4.72 10*6/uL Normal 4.6-6.2 [facility] Comment on above: Performed By: #### M 200.1000, L509.7001, L101.9900, L501.6710 #### [facility] [address] [place], [address] RDW SD 48.2 fl High 35.1-43.9 [facility] Comment on above: Performed By: #### M 200.1000, L509.7001, L101.9900, L501.6710 #### [facility] [address] [place], [address] WBC (Bld) [#/Vol] 12.9 10*3/uL High 4.4-11.0 [facility] Comment on above: Performed By: #### M 200.1000, L509.7001, L101.9900, L501.6710 #### [facility] [address] [place], [address] Gene 09-01-2024 SHEMARN Telephone (PHMEWO) ROBY FLORES ([id number]) 1935 M Date Time Provider Department 09/01/24 RUSSELL AGUAYO During your visit today, we recorded the following information about you: Russell Aguayo [facility] 09/01/2024 10:01 AM Signed PCP [...] affordable alvarado using Good Rx coupons. At [facility] (his current pharmacy), he can get a 1 mo supply for ~$30. If he switches the prescription to [facility], he can get a 1 mo supply for ~$20. See coupons below. Rivastigmine patches are also available via [employer]. It appears the cheapest option is through [facility], in which he can get 30 patches for $52. Coupon also below. Sending to PCP to review and provide patient with coupon card information. Russell Aguayo, Saúl, [facility] Primary Care Clinical Pharmacist Memantine coupon at [facility] Memantine coupon at [facility] Rivastigmine patches coupon at [facility] Luciana Cisneros MD 09/01/2024 1:27 PM Signed Rahul Chau, Staff please let patient know what the pharmacist as opined on. 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, [address] COVID-19 virus antigen assay Ordered By: Marta Black on 09-01-2024 SARS-CoV-2 (COVID-19) Ag IA.rapid Ql (Resp) [facility] CRPon 09-01-2024 C-REACTIVE PROT 26.80 mg/L High 0.0-3.0 [facility] Comment on above: Performed By: #### M 200.1000, L509.7001, L101.9900, L501.6710 #### [facility] [address] [facility] [place], [address] Carbon dioxide, total [Moles /volume] in Central venous bloodOrdered By: Inderjit Gillespie on 09-01-2024 CO2 [Moles/Vol] 24.3 mmol/L 21.0-32.0 [facility] Chest 1 View (Portable)on Chest 1 View (Portable) [facility] Imaging Services [address] [place] [address] Chest 1 View (Portable) MR#: [id number] Acct: [id number] Name: ROBY FLORES Rep #: [id number] : 1935 M 89 From: Jose harris MD PCP: Dr. Stas Mora MD Status: REG ER Study: Chest 1 View (Portable) Date of Exam: 09/01/24 Exam# [id number] Ordering Dr: Inderjit Gillespie MD PROCEDURE: CHEST [...] No acute abnormality is seen. Reading Location: [place] [address] CC: Dr. Inderjit Gillespie MD; Dr. Stas Mora MD Utilization Reviewer: Signed Normal [facility] Chloride assayOrdered By: Aries Gillespie on 09-01-2024 Chloride [Moles/Vol] 105 mmol/L 98-108 [facility] Emergency Department Summary on 09-01-2024 Emergency Department Summary [facility] Medical Records Department [address] [place] [address] Emergency Department Summary 09/01/24 MR#: [id number] Acct: [id number] Name: ROBY FLORES Rep #: [id number] : 1935 89 From: Inderjit Gillespie MD [...] Prior similar symptoms: No Recent Ill[facility] Medical History Chronic anticoagulation TIA (transient ischemic [...] shoulders elbows and wrist. 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 Neurologically he is awake alert. Answering [...] Air 09/01/24 (more content not included)... Normal [facility] Eosinophil percentageOrdered By: Indrejit Gillespie on 09-01-2024 Eosinophils/100 WBC (Bld) 1.2 % 0-5 [facility] Erythrocyte Sed Rateon 09-01 SED RATE 2 mm/hr Normal 0-20 [facility] Comment on above: Performed By: #### M 200.1000, L509.7001, L101.9900, L501.6710 #### [facility] [address] [place], [place], [address] Erythrocyte distribution wid th ratioOrdered By: Inderjit Gillespie on 09-01-2024 Erythrocyte distribution width (RBC) [Ratio] 17.2 % High 11.6-14.6 [facility] Erythrocyte distribution wid th standard deviationOrdered By: Inderjit Gillespie on 09-01-2024 Erythrocyte distribution width (RBC) [Ratio] 48.2 fl High 35.1-43.9 [facility] Erythrocyte sedimentation ra teOrdered By: Marta Black on 09-01-2024 ESR (Bld) [Velocity] 2 mm/h 0-20 [facility] Glomerular filtration rate ( GFR) estimation/1.73 sq m using serum, plasma, or whole bOrdered By: Inderjit Gillespie on 09-01-2024 GFR/1.73 sq M.predicted among non-blacks MDRD (S/P/Bld) [Vol rate/Area] 86 mL/min/{1.73_m2} >60 [facility] Comment on above: mL/min/1.73m2 CKD-EP I Creatinine Equation (2020) H AND P Exam - Hospitaliston 09-01-2024 H&P Exam - Hospitalist [facility] Medical Records Department [address] [place] [address] H P Exam - Hospitalist 09/01/24 1018 MR#: [id number] Acct: [id number] Name: ROBY FLORES Rep #: [id number] : 1935 89 From: Kathy Wells MD PCP: Dr. Stas Mora MD Status:ADM GERMAN Location: [facility] [id number] HPI - General General Date of Admission: [...] in the ED were BP of 180/89, AL of 87, RR of 18 and temp [...] debility and weakness due to mechanical fall. [facility] Medical History Chronic anticoagulation TIA (transient ischemic [...] 99 Oxy (more content not included)... Normal [facility] Hematocrit Auto (Bld) [Volum e fraction]Ordered By: Inderjit Gillespie on 09-01-2024 Hematocrit (Bld) [Volume fraction] 36.8 % Low 40-54 [facility] Hemoglobin measurementOrdere d By: Inderjit Gillespie on 09-01-2024 Hemoglobin (Bld) [Mass/Vol] 11.6 g/dL Low 13.0-16.5 [facility] Hips B/L min 2 views w/ Pelv adolfo 09-01-2024 Hips B/L min 2 views w/ Pelvis [facility] Imaging Services [address] [place] [address] Hips B/L min 2 views w/ Pelvis MR#: [id number] Acct: [id number] Name: ROBY FLORES Rep #: [id number] : 1935 M 89 From: Jose harris MD PCP: Dr. Stas Mora MD Status: REG ER Study: Hips B/L min 2 views w/ Pelvis Date of Exam: 0 09/01/24 Exam# [id number] Ordering Dr: Inderjit Gillespie MD PROCEDURE: HIPS [...] No fracture or dislocation present. Reading Location: [place] [address] CC: Dr. Inderjit Gillespie MD; Dr. Stas Mora MD Utilization Reviewer: Signed Normal [facility] Immature granulocytes/100 WB C Auto (Bld)Ordered By: Inderjit Gillespie on 09-01-2024 Immature granulocytes/100 WBC (Bld) 0.400 % 0.0-0.9 [facility] Comment on above: IG% - Immature Granu locytes (promyelocytes, myelocytes and metamyelocytes) > 1% indicates that a LEFT SHIFT is Present. International normalized rat io (INR) calculationOrdered By: Inderjit Gillespie on 09-01-2024 INR Coag (Bld) [Relative time] 1.8 {INR} [facility] Ketones Test strip Ql (U)Ord ered By: Inderjit Gillespie on 09-01-2024 Ketones Ql (U) Negative Negative [facility] L509.7001on 09-01-2024 Procalcitonin 0.07 ng/mL Normal <=0.10 [facility] Comment on above: Result Comment: Inte [...] #### M 200.1000, L509.7001, L101.9900, L501.6710 #### [facility] [place], [address] MCV (mean corpuscular volume ) determinationOrdered By: Inderjit Gillespie on 09-01-2024 MCV (RBC) [Entitic vol] 78.0 fL Low 80-94 [facility] Mean corpuscular hemoglobin (MCH) determinationOrdered By: Inderjit Gillespie on 09-01-2024 MCH (RBC) [Entitic mass] 24.6 pg Low 27.0-32.0 [facility] Mean corpuscular hemoglobin concentration (MCHC) determinationOrdered By: Inderjit Gillespie on 09-01-2024 MCHC (RBC) [Mass/Vol] 31.5 g/dL Low 32-36 [facility] Mean platelet volume determi nationOrdered By: Inderjit Gillespie on 09-01-2024 Platelet mean volume (Bld) [Entitic vol] 9.4 fL 6.2-12.0 [facility] Microscopic analysis of urin e for red blood cells (RBC)Ordered By: Inderjit Gillespie on 09-01-2024 Microscopic analysis of urine for red blood cells (RBC) 0 SEEN /hpf 0-5 [facility] Monocyte percentageOrdered B y: Inderjit Gillespie on 09-01-2024 Monocytes/100 WBC (Bld) 5.7 % 0-10 [facility] Mucus LM Ql (Urine sed)Order ed By: Inderjit Gillespie on 09-01-2024 Mucus Ql (Urine sed) 0 SEEN /hpf [facility] Neutrophil percentageOrdered By: Inderjit Gillespie on 09-01-2024 Neutrophils/100 WBC (Bld) 87.5 % High 47-70 [facility] Nitrite Test strip Ql (U)Ord ered By: Inderjit Gillespie on 09-01-2024 Nitrite Ql (U) Negative Negative [facility] Nucleated red blood cell per centageOrdered By: Inderjit Gillespie on 09-01-2024 Nucleated RBC/100 WBC (Bld) [Ratio] 0 % 0-5 [facility] Platelet countOrdered By: Aries Gillespie on 09-01-2024 Platelets (Bld) [#/Vol] 258 10*3/uL 150-450 [facility] Potassium measurement (mass/ volume)Ordered By: Inderjit Gillespie on 09-01-2024 Potassium (Unsp spec) [Mass/Vol] 3.7 mmol/L 3.3-5.1 [facility] Procalcitonin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 Warfarin: USP current use of anticoagulant Paroxysmal atrial fibrillation [...] any doses of warfarin. Coretta Jalloh [facility] Clinical Pharmacist, Pharmacy Anticoagulation Clinic Pharmacy Anticoagulation Clinic Pager: [phone]. 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 use of anticoagulant [Z79.01]09/22/2016 Paroxysmal atrial fibrillation (HCC) [I48.0] 09/22/2016 Hyperlipidemia [E78.5] 08/26/2022 Encounter Status:Closed by YEIMICORETTA on 04/13/24 Normal [facility] PT panel Coag (PPP)on 2024 INR Coag (PPP) [Relative time] 3.2 {INR} High 0.9-1.3 [facility] Comment on above: Order Comment: Stone parmar Type: BLOOD SPECIMENOrdering Facility: [facility] Address: [address] [place] [address] Result Comment: Mary min K Antagonist (VKA) Therapeutic Range: INR 2 to 3 (Target INR of 2.5) Note: For patients treated with VKA drugs, such as warfarin, the [employer] 2012 Guideline recommends [...] Chest 2012, 141:7S-47S Avel RA, et al. [facility] 2017, 70: 252-289 Performed By: #### 3 4528-0 ####[facility]WNCL[facility] [id number] [place] [address] [place] PT Coag (PPP) [Time] 31.2 s High <13.1 [facility] Comment on above: Order Comment: Stone parmar Type: BLOOD SPECIMENOrdering Facility: [facility] Address: [address] [place] [address] Performed By: #### 3 4528-0 ####[facility] [id number] [place] [address] [place] Gene 03-30-2024 CNPN Telephone (PHAMTE) ROBY FLORES ([id number]) 1935 M Date Time Provider Department 03/30/24 CORETTA JALLOH PHAMAHENDRA During your visit today, we recorded the following information about you: Coretta Jalloh RPh 03/30/2024 9:57 AM Signed [facility] Ambulatory Pharmacy Anticoagulation Clinic Anticoagulation Episode Summary Anticoagulation Care Providers Provider Role Specialty Phone number Stas Mora MD Referring Family Medicine [phone] Roby Flores is a 88 year old [...] ALLERGIES No Known Allergies Indication for Warfarin: USP current use of anticoagulant Paroxysmal atrial fibrillation [...] any doses of warfarin. Coretta Jalloh [facility] Clinical Pharmacist, Pharmacy Anticoagulation Clinic Pharmacy Anticoagulation Clinic Pager: [phone]. 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 use of anticoagulant [Z79.01]09/22/2016 Paroxysmal atrial fibrillation (HCC) [I48.0] 09/22/2016 Hyperlipidemia [E78.5] 08/26/2022 Encounter Status:Closed by CORETTA JALLOH on 03/30/24 Normal [facility] PT panel Coag (PPP)on 2024 INR Coag (PPP) [Relative time] 3.5 {INR} High 0.9-1.3 [facility] Comment on above: Order Comment: Speci men Type: BLOOD SPECIMENOrdering Facility: [facility] Address: [address] [place] [address] Result Comment: Mary min K Antagonist (VKA) Therapeutic Range: INR 2 to 3 (Target INR of 2.5) Note: For patients treated with VKA drugs, such as warfarin, the [employer] 2012 Guideline recommends [...] Chest 2012, 141:7S-47S Avel RA, et al. [facility] 2017, 70: 252-289 Performed By: #### 3 4528-0 ####[facility] [id number] [place] [address] [place] PT Coag (PPP) [Time] 33.4 s High <13.1 [facility] Comment on above: Order Comment: Speci men Type: BLOOD SPECIMENOrdering Facility: [facility] Address: [address] [place] [address] [place] [address] Performed By: #### 3 4528-0 ####[facility] [id number] [address] [place] Gene 03-17-2024 MICHELINE Telephone (PHARAV) ROBY FLORES ([id number]) 1935 M Date Time Provider Department 03/17/24 JOSY GANDHI During your visit today, we recorded the following information about you: Josy Gandhi RPh 03/17/2024 9:38 AM Signed [facility] Ambulatory Pharmacy Anticoagulation Clinic Anticoagulation Episode Summary Anticoagulation Care Providers Provider Role Specialty Phone number Stas Mora MD Referring Family Medicine [phone] Roby Radha Flores is a 88 year [...] ALLERGIES No Known Allergies Indication for Warfarin: 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 use of anticoagulant Paroxysmal atrial fibrillation [...] any doses of warfarin. Josy Gandhi [facility] Clinical Pharmacist, Pharmacy Anticoagulation Clinic Pharmacy Anticoagulation Clinic Pager: [phone]. 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 USP current use of anticoagulant [Z79.01]09/22/2016 Paroxysmal atrial fibrillation (HCC) [I48.0] 09/22/2016 Hyperlipidemia [E78.5] 08/26/2022 Encounter Status:Closed by JOSY GANDHI on 03/17/24 Normal [facility] PT panel Coag (PPP)on 2023 INR Coag (PPP) [Relative time] 3.8 {INR} High 0.9-1.3 [facility] Comment on above: Order Comment: Speci men Type: BLOOD SPECIMENOrdering Facility: [facility] Address: [address] [place] [address] Result Comment: Mary min K Antagonist (VKA) Therapeutic Range: INR 2 to 3 (Target INR of 2.5) Note: For patients treated with VKA drugs, such as warfarin, the [employer] 2012 Guideline recommends [...] Chest 2012, 141:7S-47S Avel RA et al. [facility] 2017, 70: 252-289 Performed By: #### 3 4528-0 ####[facility] CENTERLIA [id number] [place] [address] [place] PT Coag (PPP) [Time] 36.4 s High <13.1 [facility] Comment on above: Order Comment: Stone parmar Type: BLOOD SPECIMENOrdering Facility: [facility] Address: [address] [place] [address] Performed By: #### 3 4528-0 ####[facility]NCLIA [id number] [place] [id number] [place] CNPMarizol 03-03-2024 CNPN Telephone (PHAMTE) ROBY FLORES ([id number]) 1935 M Date Time Provider Department 03/03/24 ELISE PAREDES During your visit today, we recorded the following information about you: Elise Paredes, [facility] 03/03/2024 9:40 AM Signed [facility] Ambulatory Pharmacy Anticoagulation Clinic Anticoagulation Episode Summary Anticoagulation Care Providers Provider Role Specialty Phone number Stas Mora MD Referring Family Medicine [phone] Roby Flores is a 88 year old [...] ALLERGIES No Known Allergies Indication for Warfarin: USP current use of anticoagulant Paroxysmal atrial fibrillation [...] any doses of warfarin. Elise Paredes [facility] Clinical Pharmacist, Pharmacy Anticoagulation Clinic Pharmacy Anticoagulation Clinic Pager: [phone]. 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 Normal [facility] PT panel Coag (PPP)on 2023 INR Coag (PPP) [Relative time] 3.6 {INR} High 0.9-1.3 [facility] Comment on above: Order Comment: Speci men Type: BLOOD SPECIMENOrdering Facility: [facility] Address: [address] [place] [address] Result Comment: Mary min K Antagonist (VKA) Therapeutic Range: INR 2 to 3 (Target INR of 2.5) Note: For patients treated with VKA drugs, such as warfarin, the [employer] 2012 Guideline recommends [...] Chest 2012, 141:7S-47S Avel RA, et al. [facility] 2017, 70: 252-289 Performed By: #### 3 4528-0 ####[facility] [id number] [place] [address] [place] PT Coag (PPP) [Time] 35.1 s High <13.1 [facility] Comment on above: Order Comment: Speci men Type: BLOOD SPECIMENOrdering Facility: [facility] Address: [address] [facility] [place] [address] Performed By: #### 3 4528-0 ####[facility] [id number] [address] [place] Gene 02-10-2024 MICHELINE Telephone (SHAY) ROBY FLORES ([id number]) 1935 M Date Time Provider Department 02/10/24 CORETTA JALLOH During your visit today, we recorded the following information about you: Coretta Jalloh RPh 02/10/2024 9:12 AM Signed [facility] Ambulatory Pharmacy Anticoagulation Clinic Anticoagulation Episode Summary Anticoagulation Care Providers Provider Role Specialty Phone number Stas Mora MD Referring Family Medicine [phone] Roby Flores is a 88 year old [...] ALLERGIES No Known Allergies Indication for Warfarin: 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 use of anticoagulant Paroxysmal atrial fibrillation [...] any doses of warfarin. Coretta Jalloh [facility] Clinical Pharmacist, Pharmacy Anticoagulation Clinic Pharmacy Anticoagulation Clinic Pager: [phone]. Coretta Jalloh [facility] 02/24/2024 3:53 PM Signed Patient was due to test INR today at the lab - will continue to monitor for results. 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 use of anticoagulant [Z79.01]09/22/2016 Paroxysmal atrial fibrillation (HCC) [I48.0] 09/22/2016 Hyperlipidemia [E78.5] 08/26/2022 Encounter Status:Closed by CORETTA JALLOH on 02/10/24 Normal [facility] PT panel Coag (PPP)on 2023 INR Coag (PPP) [Relative time] 3.3 {INR} High 0.9-1.3 [facility] Comment on above: Order Comment: Speci men Type: BLOOD SPECIMENOrdering Facility: [facility] Address: [address] [place] [address] Result Comment: Mary min K Antagonist (VKA) Therapeutic Range: INR 2 to 3 (Target INR of 2.5) Note: For patients treated with VKA drugs, such as warfarin, the [employer] 2012 Guideline recommends [...] Chest 2012, 141:7S-47S Avel RA et al. [facility] 2017, 70: 252-289 Performed By: #### 3 4528-0 ####[facility] [id number] [address] [place] PT Coag (PPP) [Time] 31.4 s High <13.1 [facility] Comment on above: Order Comment: Speci men Type: BLOOD SPECIMENOrdering Facility: [facility] Address: [address] [place] [address] Performed By: #### 3 4528-0 ####[facility] [id number] [address] OF [facility] CNPNon 01-20-2024 CNPN Telephone (PHAMTE) ROBY FLORES ([id number]) 1935 M Date Time Provider Department 01/20/24 CORETTA JALLOH During your visit today, we recorded the following information about you: Coretta Jalloh RPh 01/20/2024 10:25 AM Signed [facility] Ambulatory Pharmacy Anticoagulation Clinic Anticoagulation Episode Summary Anticoagulation Care Providers Provider Role Specialty Phone number Stas Mora MD Referring Family Medicine [phone] Roby Radha Flores is a 88 year [...] ALLERGIES No Known Allergies Indication for Warfarin: USP current use of anticoagulant Paroxysmal atrial fibrillation [...] any doses of warfarin. Coretta Jalloh [facility] Clinical Pharmacist, Pharmacy Anticoagulation Clinic Pharmacy Anticoagulation Clinic Pager: [phone]. 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 use of anticoagulant [Z79.01]09/22/2016 Paroxysmal atrial fibrillation (HCC) [I48.0] 09/22/2016 Hyperlipidemia [E78.5] 08/26/2022 Encounter Status:Closed by CORETTA JALLOH on 01/20/24 Normal [facility] PT panel Coag (PPP)on 2023 INR Coag (PPP) [Relative time] 3.4 {INR} High 0.9-1.3 [facility] Comment on above: Order Comment: Speci men Type: BLOOD SPECIMENOrdering Facility: [facility] Address: [address] [place] [address] Result Comment: Mary min K Antagonist (VKA) Therapeutic Range: INR 2 to 3 (Target INR of 2.5) Note: For patients treated with VKA drugs, such as warfarin, the [employer] 2012 Guideline recommends [...] 252-289 Performed By: #### 3 4528-0 ####[facility] [id number] [place] [address] [place] PT Coag (PPP) [Time] 31.8 s High <13.1 [facility] Comment on above: Order Comment: Speci men Type: BLOOD SPECIMENOrdering Facility: [facility] Address: [address] [place] [address] Performed By: #### 3 4528-0 ####[facility] [id number] [address] [place] Gene 01-04-2024 [facility] ROBY FLORES ([id number]) 1935 M Date Time Provider Department 01/04/24 STAS MORA [facility] During your visit today, we recorded [...] daily as directed. 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 Encounter Status:Closed by JENNA FITZPATRICK on 01/04/24 [facility] CNPN Telephone (PHAMTE) ALYSSA FLORESTON Radha ([id number]) 1935 M Date Time Provider Department 12/24/23 ELISE PAREDES During your visit today, we recorded the following information about you: Elise Paredes, [facility] 12/24/2023 2:32 PM Signed [facility] Ambulatory Pharmacy Anticoagulation Clinic Anticoagulation Episode Summary Anticoagulation Care Providers Provider Role Specialty Phone number Stas Mora MD Referring Family Medicine [phone] Roby Garcia Sandra is a 88 year [...] ALLERGIES No Known Allergies Indication for Warfarin: 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 use of anticoagulant Paroxysmal atrial fibrillation [...] check scheduled on 01/21/2024 Elise Paredes [facility] Clinical Pharmacist, Pharmacy Anticoagulation Clinic Pharmacy Anticoagulation Clinic Pager: [phone]. 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 USP current use of anticoagulant [Z79.01]09/22/2016 Paroxysmal atrial fibrillation (HCC) [I48.0] 09/22/2016 Hyperlipidemia [E78.5] 08/26/2022 Encounter Status:Closed by ELISE PAREDES on 12/24/23 Normal [facility] PT panel Coag (PPP)on 2023 INR Coag (PPP) [Relative time] 2.2 {INR} High 0.9-1.3 [facility] Comment on above: Order Comment: Speci men Type: BLOOD SPECIMENOrdering Facility: [facility] Address: [address] [place] [address] Result Comment: Mary min K Antagonist (VKA) Therapeutic Range: INR 2 to 3 (Target INR of 2.5) Note: For patients treated with VKA drugs, such as warfarin, the [employer] 2012 Guideline recommends [...] Chest 2012, 141:7S-47S Avel RA, et al. [facility] 2017, 70: 252-289 Performed By: #### 3 4528-0 ####[facility] [id number] [place] [address] [place] PT Coag (PPP) [Time] 22.1 s High 9.7-13.0 [facility] Comment on above: Order Comment: Speci men Type: BLOOD SPECIMENOrdering Facility: [facility] Address: [address] [place] [address] Performed By: #### 3 4528-0 ####[facility] [id number] [address] [place] CNPMarizol 12-10-2023 CNPN Telephone (PHAMTE) ROBY FLORES ([id number]) 1935 M Date Time Provider Department 12/10/23 ELISE PAREDES During your visit today, we recorded the following information about you: Elise Paredes [facility] 12/10/2023 2:21 PM Signed [facility] Ambulatory Pharmacy Anticoagulation Clinic Anticoagulation Episode Summary Anticoagulation Care Providers Provider Role Specialty Phone number Stas Mora MD Referring Family Medicine [phone] Roby Garcia Sandra is a 88 year [...] ALLERGIES No Known Allergies Indication for Warfarin: USP current use of anticoagulant Paroxysmal atrial fibrillation (hcc) Anticoagulation Episode Summary Current INR goal: 2.0-3.0 Assessment: INR result of 1.9 is SUBtherapeutic due to: unknown cause - did not speak to patient Plan: Current Warfarin Dosing As of 12/10/2023 Full warfarin instructions: 2.5 mg every Sun; 3 mg all other days Left voice message for Gabby at [phone] (home) Advised patient to increase total weekly regimen Next lab INR check scheduled on 12/24/2023 Elise Paredes [facility] Clinical Pharmacist, Pharmacy Anticoagulation Clinic Pharmacy Anticoagulation Clinic Pager: [phone]. 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 use of anticoagulant [Z79.01]09/22/2016 Paroxysmal atrial fibrillation (HCC) [I48.0] 09/22/2016 Hyperlipidemia [E78.5] 08/26/2022 Encounter Status:Closed by ELISE PAREDES on 12/10/23 Normal [facility] PT panel Coag (PPP)on 2023 INR Coag (PPP) [Relative time] 1.9 {INR} High 0.9-1.3 [facility] Comment on above: Order Comment: Speci men Type: BLOOD SPECIMENOrdering Facility: [facility] Address: [address] [place] [address] Result Comment: Mary min K Antagonist (VKA) Therapeutic Range: INR 2 to 3 (Target INR of 2.5) Note: For patients treated with VKA drugs, such as warfarin, the [employer] 2012 Guideline recommends [...] Chest 2012, 141:7S-47S Avel RA, et al. [facility] 2017, 70: 252-289 Performed By: #### 3 4528-0 ####[facility] [id number] [place] [address] [place] PT Coag (PPP) [Time] 18.8 s High 9.7-13.0 [facility] Comment on above: Order Comment: Speci men Type: BLOOD SPECIMENOrdering Facility: [facility] Address: [address] [place] [address] Performed By: #### 3 4528-0 ####[facility] [id number] [place] [address] [place] CNOVon 11-26-2023 CNOV Office Visit (FAMPWS ) ROBY FLORES ([id number]) 1935 M Date Time Provider Department 11/26/23 [...] Coronary atherosclerosis of unspecified type of vessel, [place] or graft Comment: Coronary artery disease No [...] 11/22/2023 Influ (more content not included)... Normal [facility] CNPNon 11-26-2023 CNPN Telephone (PHAMTE) ROBY FLORES ([id number]) 1935 M Date Time Provider Department 11/26/23 ELISE PAREDES PHAMAHENDRA During your visit today, we recorded the following information about you: Elise Paredes, [facility] 11/26/2023 4:23 PM Signed [facility] Ambulatory Pharmacy Anticoagulation Clinic Anticoagulation Episode Summary Anticoagulation Care Providers Provider Role Specialty Phone number Stas Mora MD Referring Family Medicine [phone] Roby Flores is a 88 year old [...] ALLERGIES No Known Allergies Indication for Warfarin: USP current use of anticoagulant Paroxysmal atrial fibrillation [...] PAC to discuss further Elise Paredes [facility] Clinical Pharmacist, Pharmacy Anticoagulation Clinic Pharmacy Anticoagulation Clinic Pager: [phone]. Satish (Lubricating Specialist)Parmjit 11/26/2023 4:30 PM Signed Patient's spouse called regarding message. Patient typically takes warfarin in the morning but did not take any today. Patient's spouse doesn't understand why its low all the sudden. Denies changes in medication/ diet or missed doses. Call transferred to [facility] Parmjit Covarrubias, Mortgage Broker (child and family services worker) Pharmacy Anticoagulation Clinic Elise Paredes [facility] 11/26/2023 4:32 PM Signed [facility] Pharmacy Anticoagulation Clinic Anticoagulation Episode Summary Anticoagulation Care Providers Provider Role Specialty Phone number Stas Mora MD Referring Family Medicine [phone] Roby Flores is a 88 year old [...] ALLERGIES No Known Allergies Indication for Warfarin: 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 Elise Paredes [facility] Clinical Pharmacist, Pharmacy Anticoagulation Clinic Pharmacy Anticoagulation Clinic Pager: [phone]. Allergies As of Date: 11/26/2023 (No Known Allergies) Date Reviewed: 11/26/2023 Reviewed by: Rosie Cruz MA - Fully Assessed Reason for Visit: Anticoagulation Telephone Fu [148] Cmt: Lab INR Primary Visit Diagnosis:USP current use of anticoagulant [Z79.01] (more content not included)... Normal [facility] PT panel Coag (PPP)on 2023 INR Coag (PPP) [Relative time] 1.5 {INR} High 0.9-1.3 [facility] Comment on above: Order Comment: Speci men Type: BLOOD SPECIMEN Ordering Facility: [facility] Address: [address] [place] [address] Result Comment: Mary min K Antagonist (VKA) Therapeutic Range: INR 2 to 3 (Target INR of 2.5) Note: For patients treated with VKA drugs, such as warfarin, the [employer] 2012 Guideline recommends [...] Chest 2012, 141:7S-47S Avel CARDONA et al. [facility] 2017, 70: 252-289 Performed By: #### 3 4528-0 #### [facility] CLIA [id number] [address] [place] [address] [place] PT Coag (PPP) [Time] 15.1 s High 9.7-13.0 [facility] Comment on above: Order Comment: Speci men Type: BLOOD SPECIMEN Ordering Facility: [facility] Address: [address] [place] [address] Performed By: #### 3 4528-0 #### [facility] CLIA [id number] [address] [place] [address] [place] CBC W Auto Differential pane l (Bld)on 06-04-2023 Basophils (Bld) [#/Vol] 0.06 10*3/uL <0.11 k/uL [facility] Basophils/100 WBC (Bld) 0.9 % [facility] Differential cell count method Nom (Bld) Auto [facility] Eosinophils (Bld) [#/Vol] 0.16 10*3/uL <0.46 k/uL [facility] Eosinophils/100 WBC (Bld) 2.4 % [facility] Erythrocyte distribution width (RBC) [Ratio] 15.7 % High 11.5 - 15.0 % [facility] Hematocrit (Bld) [Volume fraction] 34.9 % Low 39.0 - 51.0 % [facility] Hemoglobin (Bld) [Mass/Vol] 10.0 g/dL Low 13.0 - 17.0 g/dL [facility] Immature granulocytes (Bld) [#/Vol] <0.10 k/uL [facility] Immature granulocytes/100 WBC (Bld) 0.3 % [facility] Lymphocytes (Bld) [#/Vol] 1.65 10*3/uL 1.00 - 4.00 k/uL [facility] Lymphocytes/100 WBC (Bld) 24.8 % [facility] MCH (RBC) [Entitic mass] 20.9 pg Low 26.0 - 34.0 pg [facility] MCHC (RBC) [Mass/Vol] 28.7 g/dL Low 30.5 - 36.0 g/dL [facility] MCV (RBC) [Entitic vol] 73.0 fL Low 80.0 - 100.0 fL [facility] Monocytes (Bld) [#/Vol] 0.61 10*3/uL <0.87 k/uL [facility] Monocytes/100 WBC (Bld) 9.2 % [facility] Neutrophils (Bld) [#/Vol] 4.16 10*3/uL 1.45 - 7.50 k/uL [facility] Neutrophils/100 WBC (Bld) 62.4 % [facility] Nucleated RBC (Bld) [#/Vol] <0.01 k/uL [facility] Nucleated RBC/100 WBC (Bld) [Ratio] 0.0 /100 WBC [facility] Platelet mean volume (Bld) [Entitic vol] 10.7 fL 9.0 - 12.7 fL [facility] Platelets (Bld) [#/Vol] 297 10*3/uL 150 - 400 k/uL [facility] RBC (Bld) [#/Vol] 4.78 10*6/uL 4.20 - 6.00 m/uL [facility] WBC (Bld) [#/Vol] 6.66 10*3/uL 3.70 - 11.00 k/uL [facility] MRI BRAIN WO IVCONon 023 [facility] Absolute lymphocyte countOrd ered By: Brian Cunningham on 02-10-2023 Lymphocytes Auto (Unsp spec) [#/Vol] 0.99 10*3/uL 0.83-4.51 [facility] Basophil percentageOrdered B y: Brian Cunningham on 02-10-2023 Basophil percentage 0-5 SEEN /hpf 0-5 [facility] Basophils/100 WBC (Bld) 0.8 % 0-1 [facility] Chloride [Moles/Vol] 108 mmol/L 98-107 [facility] Eosinophils/100 WBC (Bld) 0.4 % 0-5 [facility] Glucose [Mass/Vol] 117 mg/dL 74-106 [facility] Comment on above: Fasting Glucose resu lt from 100 to 125 mg/dL suggests IMPAIRED HOMEOSTASIS per A.D.A. criteria. Neutrophils (Bld) [#/Vol] 5.8 10*3/uL 2.0-7.7 [facility] Neutrophils/100 WBC (Bld) 77.9 % 47-70 [facility] Potassium [Moles/Vol] 4.0 mmol/L 3.5-5.1 [facility] Sodium [Moles/Vol] 140 mmol/L 136-145 [facility] WBC (Bld) [#/Vol] 7.5 10*3/uL 4.4-11.0 [facility] Bilirubin Test strip Ql (U)O rdered By: Brian Cunningham on 02-10-2023 Bilirubin Ql (U) 1 mg/dL Negative [facility] Comment on above: COLOR OF URINE MAY A FFECT DIPSTICK RESULTS. Blood erythrocytes count (nu mber/volume)Ordered By: Brian Cunningham on 02-10-2023 RBC (Bld) [#/Vol] 4.42 10*6/uL 4.6-6.2 [facility] Blood hemoglobin measurement (mass/volume)Ordered By: Brian Cunningham on 02-10-2023 Hemoglobin (Bld) [Mass/Vol] 10.6 g/dL 13.0-16.5 [facility] Blood lymphocytes/100 leukoc ytesOrdered By: Brian Cunningham on 02-10-2023 Lymphocytes/100 WBC (Bld) 13.3 % 19-41 [facility] Blood monocytes/100 leukocyt esOrdered By: Brian Cunningham on 02-10-2023 Monocytes/100 WBC (Bld) 7.2 % 0-10 [facility] Blood platelet mean volumeOr dered By: Brian Cunningham on 02-10-2023 Platelet mean volume (Bld) [Entitic vol] 9.9 fL 6.2-12.0 [facility] Determination of erythrocyte mean corpuscular volume (MCV)Ordered By: Brian Cunningham on 02-10-2023 MCV (RBC) [Entitic vol] 81.9 fL 80-94 [facility] Hematocrit Auto (Bld) [Volum e fraction]Ordered By: Brian Cunningham on 02-10-2023 Hematocrit (Bld) [Volume fraction] 36.2 % 40-54 [facility] INR in Blood by Coagulation assayOrdered By: Brian Cunningham on 02-10-2023 INR Coag (Bld) [Relative time] 1.2 {INR} [facility] Influenza virus A and B and SARS-CoV-2 (COVID-19) Ag panel - Upper respiratory specimOrdered By: Brian Cunningham on 02-10-2023 SARS-CoV-2 (COVID-19) RNA LOLI+probe Ql (Resp) [facility] Ketones Test strip Ql (U)Ord ered By: Brian Cunningham on 02-10-2023 Ketones Ql (U) 5 mg/dl Negative [facility] Laboratory - Chemistry and C hemistry - challengeOrdered By: Brian Cunningham on 02-10-2023 CO2 [Moles/Vol] 30.0 mmol/L 21.0-32.0 [facility] Urea nitrogen/Creatinine [Mass ratio] 23.8 mg/mg 10-20 [facility] Laboratory - CoagulationOrde red By: Brian Cunningham on 02-10-2023 aPTT Coag (Bld) [Time] 26.3 s 24.1-36.2 [facility] PT Coag (PPP) [Time] 15.6 s 11.7-14.9 [facility] Laboratory - Hematology and Cell countsOrdered By: Brian Cunningham on 02-10-2023 Erythrocyte distribution width (RBC) [Entitic vol] 41.8 fL 35.1-43.9 [facility] Erythrocyte distribution width (RBC) [Ratio] 14.1 % 11.6-14.6 [facility] Immature granulocytes/100 WBC (Bld) 0.400 % 0.0-0.9 [facility] Comment on above: IG% - Immature Granu locytes (promyelocytes, myelocytes and metamyelocytes) > 1% indicates that a LEFT SHIFT is Present. MCH (RBC) [Entitic mass] 24.0 pg 27.0-32.0 [facility] Nucleated RBC/100 WBC (Bld) [Ratio] 0 % 0-5 [facility] MCHC Auto (RBC) [Mass/Vol]Or dered By: Brian Cunningham on 02-10-2023 MCHC (RBC) [Mass/Vol] 29.3 g/dL 32-36 [facility] Mucus LM Ql (Urine sed)Order ed By: Brian Cunningham on 02-10-2023 Mucus Ql (Urine sed) 0 SEEN /hpf [facility] Nitrite Test strip Ql (U)Ord ered By: Brian Cunningham on 02-10-2023 Nitrite Ql (U) Negative Negative [facility] No Panel InformationOrdered By: Brian Cunningham on 02-10-2023 Estimated Creatinine Clearance Calc 68.37 ml/min [facility] Estimated GFR (MDRD) Amer 118 mL/min >60 [facility] Comment on above: GFR Calc Estimated GFR (MDRD) Non-Af Amer 97 mL/min >60 [facility] Comment on above: Non- GFR Calc Troponin I High Sensitivity 16 pg/mL 3.0-78.0 [facility] Comment on above: Please Note: New [place] Units and Gender Specific Reference Ranges. For more information see Policy Stat Procedure [place] High Sensitivity Troponin (TNIH) and attachments. Platelets bldOrdered By: Caitlyn Cunningham on 02-10-2023 Platelets (Bld) [#/Vol] 328 10*3/uL 150-450 [facility] Protein Test strip Ql (U)Ord ered By: Brian Cunningham on 02-10-2023 Protein Ql (U) 15 mg/dl Negative [facility] Serum or plasma calcium alvaro urement (mass/volume)Ordered By: Brian Cunningham on 02-10-2023 Calcium [Mass/Vol] 8.9 mg/dL 8.5-10.1 [facility] Serum or plasma creatinine m easurement (mass/volume)Ordered By: Brian Cunningham on 02-10-2023 Creatinine [Mass/Vol] 0.80 mg/dL 0.70-1.30 [facility] Comment on above: The validity of the calculated GFR & GFRAA in patients over 70 years has not been determined. Clinical correlation is essential. Serum or plasma urea nitroge n measurement (mass/volume)Ordered By: Brian Cunningham on 02-10-2023 Urea nitrogen [Mass/Vol] 19 mg/dL 7-18 [facility] Squamous epithelial cells de tection in urine sediment by light microscopyOrdered By: Brian Cunningham on 02-10-2023 Epithelial cells.squamous LM Ql (Urine sed) 0 SEEN /hpf 0-5 [facility] Thin prep Papanicolaou smear with manual screeningOrdered By: Brian Cunningham on 02-10-2023 Thin prep Papanicolaou smear with manual screening 2 5-15 [facility] Urine blood detectionOrdered By: Brian Cunningham on 02-10-2023 RBC Ql (U) Negative Negative [facility] RBC Ql (U) 0 SEEN /hpf 0-5 [facility] Urine clarityOrdered By: Caitlyn Cunningham on 02-10-2023 Clarity (U) Clear Clear [facility] Urine color determinationOrd ered By: Brian Cunningham on 02-10-2023 Color (U) Yellow Yellow [facility] Urine glucose detectionOrder ed By: Brian Cunningham on 02-10-2023 Glucose Ql (U) Normal mg/dl Normal [facility] Urine leukocyte esterase det ection by dipstickOrdered By: Brian Cunningham on 02-10-2023 Leukocyte esterase Test strip Ql (U) 25 /ul Negative [facility] Urine pHOrdered By: Brian swain on 02-10-2023 pH (U) 6.5 [pH] 5.0 - 8.0 [facility] Urine sediment bacteria coun t by microscopy (number/high power field)Ordered By: Brian Cunningham on 02-10-2023 Bacteria LM.HPF (Urine sed) [#/Area] 0 /[HPF] None Seen [facility] Urine specific gravity measu rementOrdered By: Brian Cunningham on 02-10-2023 Specific gravity (U) [Rel density] 1.015 1.002-1.03 0 [facility] Urobilinogen Auto test strip Ql (U)Ordered By: Brian Cunningham on 02-10-2023 Urobilinogen Ql (U) 4 mg/dl Normal [facility] CT HEAD OR BRAIN W/O CONTRAS Ton [...] 11/17/2022 4:26:20 PM Ordering Provider: STERLING LYNCH [facility] (MD) XR Pelvis and Hip - left AP and Lateral frogon 05-21-2022 IMPRESSION: No acute fracture or hip dislocation Utilization Reviewer: EDUAR Transcribe Date/Time: May 21 2022 3:41P Dictated by : JUDY MCKENZIE MD This examination was interpreted and the report reviewed and electronically signed by: JUDY MCKENZIE MD on May 21 2022 3:43PM [facility] DIVISION OF RADIOLOGY * * *Final Report* [...] Small acetabular osteophytes. DIVISION OF RADIOLOGY Provider, [facility] - 05/21/2022 * * *Final [...] IMPRESSION: No acute fracture or hip dislocation Utilization Reviewer: [facility] Transcribe Date/Time: May 21 2022 3:41P Dictated by : JUDY MCKENZIE MD This examination was interpreted and the report reviewed and electronically signed by: JUDY MCKENZIE MD on May 21 2022 3:43PM EST [facility] Radiology Study observation (narrative) [facility] XR Pelvis and Hip - left AP and Lateral frogOrdered By: Ccf Provider on 05-21-2022 [facility] PT panel Coag (PPP)on 2022 INR Coag (Bld) [Relative time] 1.7 {INR} [facility] Basophil percentageon 2021 Cholesterol [Mass/Vol] 152 mg/dL <200 [facility] Work Phone: Comment on above: <200 mg/dL Desirable 200-240 mg/dL Borderline >240 mg/dL High Risk Triglyceride [Mass/Vol] 76 mg/dL <199 [facility] Work Phone: Comment on above: The drugs N-Acetylcy steine and Metamizole may falsely depress this assay.Serum Triglycerides Reference Interval Normal <150 mg/dL Borderline high 150 - 199 mg/dL High 200 - 499 mg/dL Very High > or = 500 mg/dL INR in Blood by Coagulation assayon 12-22-2021 INR Coag (Bld) [Relative time] 2.5 {INR} [facility] Work Phone: Laboratory - Chemistry and C hemistry - challengeon 12-22-2021 Magnesium [Mass/Vol] 2.1 mg/dL 1.6-2.6 [facility] Work Phone: Laboratory - Coagulationon 1 PT Coag (PPP) [Time] 27.0 s 11.7-14.9 [facility] Work Phone: No Panel Informationon 12-22 Thyroid Stimulating Hormone (TSH) 0.42 uIU/mL 0.358-3.74 [facility] Work Phone: Serum or plasma cholesterol in HDL measurement (mass/volume)on 12-22-2021 Cholesterol in HDL [Mass/Vol] 35 mg/dL >40 [facility] Work Phone: Comment on above: The drugs N-Acetylcy steine and Metamizole may falsely depress this assay. Reference Range HDL <40 mg/dL Low HDL Cholesterol HDL >or= 60 mg/dL High HDL Cholesterol Serum or plasma cholesterol in VLDL measurement (mass/volume)on 12-22-2021 Cholesterol in VLDL [Mass/Vol] 15 mg/dL 5-40 [facility] Work Phone: Serum or plasma low density lipoprotein (LDL) cholesterol measurement (mass/volume)on 12-22-2021 Cholesterol in LDL [Mass/Vol] 102 mg/dL 0-130 [facility] Work Phone: Whole blood hemoglobin A1c/t otal hemoglobin ratio (mass fraction)on 12-22-2021 HbA1c (Bld) [Mass fraction] 5.9 % 3.8-5.6 [facility] Work Phone: Comment on above: Normal < 5.7 % Predi abetic 5.7 - 6.4 % Diabetic >or= 6.5 % Please note range changes. Absolute lymphocyte counton 12-21-2021 Lymphocytes Auto (Unsp spec) [#/Vol] 1.23 10*3/uL 0.83-4.51 [facility] Work Phone: Basophil percentageon 2021 Basophils/100 WBC (Bld) 0.4 % 0-1 [facility] Work Phone: Chloride [Moles/Vol] 106 mmol/L 98-107 [facility] Work Phone: Eosinophils/100 WBC (Bld) 1.4 % 0-5 [facility] Work Phone: Glucose [Mass/Vol] 107 mg/dL 74-106 [facility] Work Phone: Comment on above: Fasting Glucose resu lt from 100 to 125 mg/dL suggests IMPAIRED HOMEOSTASIS per A.D.A. criteria. Neutrophils (Bld) [#/Vol] 5.7 10*3/uL 2.0-7.7 [facility] Work Phone: Neutrophils/100 WBC (Bld) 72.4 % 47-70 [facility] Work Phone: Potassium [Moles/Vol] 3.7 mmol/L 3.5-5.1 [facility] Work Phone: Sodium [Moles/Vol] 141 mmol/L 136-145 [facility] Work Phone: WBC (Bld) [#/Vol] 7.9 10*3/uL 4.4-11.0 [facility] Work Phone: Blood erythrocytes count (nu mber/volume)on 12-21-2021 RBC (Bld) [#/Vol] 4.85 10*6/uL 4.6-6.2 [facility]: Blood hemoglobin measurement (mass/volume)on 12-21-2021 Hemoglobin (Bld) [Mass/Vol] 14.5 g/dL 13.0-16.5 [facility] Work Phone: Blood lymphocytes/100 leukoc yteson 12-21-2021 Lymphocytes/100 WBC (Bld) 15.5 % 19-41 [facility] Work Phone: [phone] Blood monocytes/100 leukocyt eson 12-21-2021 Monocytes/100 WBC (Bld) 9.9 % 0-10 [facility] Work Phone: Blood platelet mean volumeon 12-21-2021 Platelet mean volume (Bld) [Entitic vol] 10.2 fL 6.2-12.0 [facility] Work Phone: Determination of erythrocyte mean corpuscular volume (MCV)on 12-21-2021 MCV (RBC) [Entitic vol] 92.0 fL 80-94 [facility] Work Phone: Hematocrit Auto (Bld) [Volum e fraction]on 12-21-2021 Hematocrit (Bld) [Volume fraction] 44.6 % 40-54 [facility] Work Phone: INR in Blood by Coagulation assayon 12-21-2021 INR Coag (Bld) [Relative time] 2.3 {INR} [facility] Work Phone: Laboratory - Chemistry and C hemistry - challengeon 12-21-2021 CO2 [Moles/Vol] 29.0 mmol/L 21.0-32.0 [facility] Work Phone: Urea nitrogen/Creatinine [Mass ratio] 21.8 mg/mg 10-20 [facility] Work Phone: Laboratory - Coagulationon aPTT Coag (Bld) [Time] 36.6 s 24.1-36.2 [facility] Work Phone: PT Coag (PPP) [Time] 24.7 s 11.7-14.9 [facility] Work Phone: Laboratory - Hematology and Cell countson 12-21-2021 Erythrocyte distribution width (RBC) [Entitic vol] 42.2 fL 35.1-43.9 [facility] Work Phone: Erythrocyte distribution width (RBC) [Ratio] 12.5 % 11.6-14.6 [facility] Work Phone: Immature granulocytes/100 WBC (Bld) 0.400 % 0.0-0.9 [facility] Work Phone: Comment on above: IG% - Immature Granu locytes (promyelocytes, myelocytes and metamyelocytes) > 1% indicates that a LEFT SHIFT is Present. MCH (RBC) [Entitic mass] 29.9 pg 27.0-32.0 [facility] Work Phone: Nucleated RBC/100 WBC (Bld) [Ratio] 0 % 0-5 [facility] Work Phone: MCHC Auto (RBC) [Mass/Vol]on 12-21-2021 MCHC (RBC) [Mass/Vol] 32.5 g/dL 32-36 [facility] Work Phone: No Panel Informationon 12-21 Estimated Creatinine Clearance Calc 66.90 ml/min [facility] Work Phone: Estimated GFR (MDRD) Amer 107 mL/min >60 [facility] Work Phone: Comment on above: GFR Calc Estimated GFR (MDRD) Non-Af Amer 88 mL/min >60 [facility] Work Phone: Comment on above: Non- GFR Calc Troponin I High Sensitivity 13 pg/mL 3.0-78.0 [facility] Work Phone: Comment on above: Please Note: New [place] Units and Gender Specific Reference Ranges. For more information see Policy Stat Procedure [place] High Sensitivity Troponin (TNIH) and attachments. Platelets bldon 12-21-2021 Platelets (Bld) [#/Vol] 241 10*3/uL 150-450 [facility] Work Phone: Serum or plasma calcium alvaro urement (mass/volume)on 12-21-2021 Calcium [Mass/Vol] 9.2 mg/dL 8.5-10.1 [facility] Work Phone: Serum or plasma creatinine m easurement (mass/volume)on 12-21-2021 Creatinine [Mass/Vol] 0.87 mg/dL 0.70-1.30 [facility] Work Phone: Comment on above: The validity of the calculated GFR & GFRAA in patients over 70 years has not been determined. Clinical correlation is essential. Serum or plasma urea nitroge n measurement (mass/volume)on 12-21-2021 Urea nitrogen [Mass/Vol] 19 mg/dL 10-07 [facility] Work Phone: Thin prep Papanicolaou smear with manual screeningon 12-21-2021 Thin prep Papanicolaou smear with manual screening 6 08-04 [facility] Work Phone: CBC panel Auto (Bld)on 07-08 Erythrocyte distribution width (RBC) [Ratio] 13.1 % 11.5 - 15.0 % [facility] Hematocrit (Bld) [Volume fraction] 49.5 % 39.0 - 51.0 % [facility] Hemoglobin (Bld) [Mass/Vol] 15.9 g/dL 13.0 - 17.0 g/dL [facility] MCH (RBC) [Entitic mass] 29.6 pg 26.0 - 34.0 pg [facility] MCHC (RBC) [Mass/Vol] 32.1 g/dL 30.5 - 36.0 g/dL [facility] MCV (RBC) [Entitic vol] 92.2 fL 80.0 - 100.0 fL [facility] Nucleated RBC (Bld) [#/Vol] 10*3/uL <0.01 k/uL [facility] Platelet mean volume (Bld) [Entitic vol] 10.7 fL 9.0 - 12.7 fL [facility] Platelets (Bld) [#/Vol] 235 10*3/uL 150 - 400 k/uL [facility] RBC (Bld) [#/Vol] 5.37 10*6/uL 4.20 - 6.00 m/uL [facility] WBC (Bld) [#/Vol] 10.33 10*3/uL 3.70 - 11.00 k/uL [facility] XR Lumbar spine 3 Viewson IMPRESSION: 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 Utilization Reviewer: EDUAR Transcribe Date/Time: Mar 13 2020 8:34A Dictated by : GABRIELLE BENTLEY MD This examination was interpreted and the report reviewed and electronically signed by: GABRIELLE BENTLEY MD on Mar 13 2020 8:35AM [facility] DIVISION OF RADIOLOGY * * *Final Report* [...] spine are presented. FINDINGS: There are five xyh-weo-srfsemq lumbar vertebrae. No fracture or subluxations are noted. L5-S1 disc space narrowing is demonstrated. There is significant osteophyte formation. Kissing spine seen on lateral view. DIVISION OF RADIOLOGY Provider, [facility] - 03/13/2020 * * *Final [...] spine are presented. FINDINGS: There are five pkm-ctv-yexuave lumbar vertebrae. No fracture or subluxations are noted. L5-S1 disc space narrowing is demonstrated. There is significant osteophyte formation. Kissing spine seen on lateral view. 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 Utilization Reviewer: EDUAR Transcribe Date/Time: Mar 13 2020 8:34A Dictated by : GABRIELLE BENTLEY MD This examination was interpreted and the report reviewed and electronically signed by: GABRIELLE BENTLEY MD on Mar 13 2020 8:35AM EST [facility] XR Lumbar spine 3 ViewsOrder ed By: Ccf Provider on 03-13-2020 [facility] XR Lumbar spine 3 Viewson Radiology Study observation (narrative) [facility] PROGRESSon 06-09-2017 PROGRESS HNO ID: [id number] Author: Vesta Marin PSR Service: (none) Author Type: (none) Type: Progress Notes Filed: 06/09/2017 4:13 PM Note Text: Spoke with the patient and scheduled his Corotid Doppler on June 24, 2017 at 9:00 am [facility] CNOVon 06-02-2017 CNOV Office Visit (AGCARDWST) -------ROBY FLORES ([id number]) 1935 MDate Time Provider Department06/02/17 9:00 AM [...] weeks.He will be getting labs from the [facility] in the near future and I've askedfor a copy.INR has been within range. He is due today.I will see him in 8 months or as needed. If there is increased chest pain orrecurrent syncope, he has been advised to contact me.Written and verbal health teaching given to patient, patient verbalizesunderstanding and agrees with treatment plan.This note was generated using CoverMyMeds voice recognition system, and there may besome [...] There is no significantchange.Electronic ally Signed:Darrell Oliveira [facility] 2017 9:15 [facility]: Carmen Vasquez MD 06/02/2017 9:21 AM [...] 24, 2017 at9:00 amReferring Provider: DARRELL OLIVEIRA [[id number]]Allergies As of Date: 06/02/2017(No Known Allergies)Date Reviewed: 06/02/2017Reviewed by: Russell Breaux) Anabella - Fully AssessedReason for Visit: Recheck [92]Primary Visit Diagnosis:ASHD (arteriosclerotic heart disease) [I25.10] Other Visit Diagnosis:PAF (paroxysmal atrial fibrillation) ([facility]) [I48.0]Order(s):ECG B/O W INTERP (MED OFFICE) [ECG06] Order #: [id number] Fosinopril Sodium 40 mg tabletTake 1/2 tablet [...] FOR* 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 Please give serious thought to the following areas and commit to making apprentice embalmer changes. EAT A WHOLE FOOD, PLANT BASED [...] on file. Cosign accepted by STAS MORA MD[[id number]] on 09/30/2016 2:01 PM Fosinopril Sodium 40 [...] on file.Follow-up and Disposition History RecordedEncounter Number: [id number] Status:Closed by DARRELL OLIVEIRA MD on 06/02/17 [facility] PROGRESSon 06-02-2017 PROGRESS HNO ID: [id number] thor: Darrell Stahl: (none)Author Type: PhysicianType: Progress [...] weeks.He will be getting labs from the [facility] in the near future and I'veasked for a copy.INR has been within range. He is due today.I will see him in 8 months or as needed. If there is increased chest painor recurrent syncope, he has been advised to contact me.Written and verbal health teaching given to patient, patient verbalizesunderstanding and agrees with treatment plan.This note was generated using CoverMyMeds voice recognition system, and theremay be some [...] Signed:Darrell Oliveira [facility] 2017 9:15 [facility]: Stas Mora MD [facility] OBSOLETEon 03-02-2017 OBSOLETE Refill (AGCARDWST) -------[facility] FLORES ([id number]) 1935 [facility] Emswsrszlm21/11/17 DARRELL OLIVEIRA AGCARDWST During your visit today, [...] FOR* 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 Stas Mora MD Work Phone: [facility] 09-06-2024 14:15-0400 Diastolic blood pressure 88 mm[Hg] Dr. Stas Mora MD Work Phone: [facility] 09-06-2024 14:15-0400 Heart rate 78 /min Dr. Stas Mora MD Work Phone: [facility] 09-06-2024 14:15-0400 Respiratory rate 18 /min Dr. Stas Mora MD Work Phone: [facility] 09-06-2024 14:15-0400 SaO2% (BldA) [Mass fraction] 97 % Dr. Stas Mora MD Work Phone: 5(159)600-368280 [address] 09-06-2024 14:15-0400 Systolic blood pressure 137 mm[Hg] Dr. Stas Mora MD Work Phone: 3(098)577-274068 [place] [address] 09-04-2024 12:05-0400 Inhaled oxygen flow rate 2 L/min Dr. Stas Mora MD Work Phone: 6(022)019-107068 [place] [address] 09-01-2024 11:52-0400 Body height 182.[address] Stas Mora MD Work Phone: 1(822)571-410168 [place] [address] 09-01-2024 11:52-0400 Body mass index (BMI) [Ratio] 21.6 kg/m2 Dr. Stas Mora MD Work Phone: 1(108)694-681268 [place] [address] 09-01-2024 11:52-0400 Body weight 72.[address] Stas Mora MD Work Phone: 3(833)707-746168 [place] [address] 09-01-2024 11:00-0400 Diastolic blood pressure 79 mm[Hg] Dr. Stas Mora MD Work Phone: 5(005)455-267768 [place] [address] 09-01-2024 11:00-0400 Heart rate 70 /min Dr. Stas Mora MD Work Phone: 3(749)268-773268 [place] [address] 09-01-2024 11:00-0400 Respiratory rate 18 /min Dr. Stas Mora MD Work Phone: 9(199)865-862668 [place] [address] 09-01-2024 11:00-0400 SaO2% (BldA) [Mass fraction] 98 % Dr. Stas Mora MD Work Phone: 1(101)411-378068 [place] [address] 09-01-2024 11:00-0400 Systolic blood pressure 180 mm[Hg] Dr. Stas Mora MD Work Phone: 6(787)475-367868 [place] [address] 09-01-2024 09:52-0400 Body temperature 98.9 [degF] Dr. Stas Mora MD Work Phone: 6(625)451-800568 [place] [address] 09-01-2024 07:31-0400 Body height 182.[address] Stas Mora MD Work Phone: [facility] 09-01-2024 07:31-0400 Body mass index (BMI) [Ratio] 23.4 kg/m2 Dr. Stas Mora MD Work Phone: [facility] 09-01-2024 07:31-0400 Body weight 78.[address] Stas Mora MD Work Phone: [facility] 08-31-2024 11:05-0400 Body mass index (BMI) [Ratio] 22.35 kg/m2 Luciana Cisneros MD Work Phone: [facility] 08-31-2024 11:05-0400 Body weight 73.94 kg Luciana Cisneros MD Work Phone: [facility] 08-31-2024 11:05-0400 Diastolic blood pressure 74 mm[Hg] Luciana Cisneros MD Work Phone: [facility] 08-31-2024 11:05-0400 Heart rate 74 /min Luciana Cisneros MD Work Phone: [facility] 08-31-2024 11:05-0400 Respiratory rate 12 /min Luciana Cisneros MD Work Phone: [facility] 08-31-2024 11:05-0400 SaO2% (BldA) [Mass fraction] 98 % Luciana Cisneros MD Work Phone: [facility] 08-31-2024 11:05-0400 Systolic blood pressure 124 mm[Hg] Luciana Cisneros MD Work Phone: [facility] 07-28-2024 11:12-0400 Diastolic blood pressure 78 mm[Hg] Stas Mora MD Work Phone: [facility] 07-28-2024 11:12-0400 Systolic blood pressure 136 mm[Hg] Stas Mora MD Work Phone: [facility] 07-28-2024 11:10-0400 Body mass index (BMI) [Ratio] 22.4 kg/m2 Stas Mora MD Work Phone: [facility] 07-28-2024 11:10-0400 Body weight 74.1 kg Stas Mora MD Work Phone: [facility] 07-28-2024 11:10-0400 Heart rate 56 /min Stas Mora MD Work Phone: [facility] 07-28-2024 11:10-0400 Respiratory rate 16 /min Stas Mora MD Work Phone: [facility] 06-01-2024 14:52-0400 Body height 181.9 cm Luciana Cisneros MD Work Phone: [facility] 06-01-2024 14:52-0400 Body mass index (BMI) [Ratio] 22.33 kg/m2 Luciana Cisneros MD Work Phone: [facility] 06-01-2024 14:52-0400 Body weight 73.85 kg Luciana Cisneros MD Work Phone: [facility] 06-01-2024 14:52-0400 Diastolic blood pressure 60 mm[Hg] Luciana Cisneros MD Work Phone: [facility] 06-01-2024 14:52-0400 Heart rate 46 /min Luciana Cisneros MD Work Phone: [facility] 06-01-2024 14:52-0400 SaO2% (BldA) [Mass fraction] 98 % Luciana Cisneros MD Work Phone: [facility] 06-01-2024 14:52-0400 Systolic blood pressure 132 mm[Hg] Luciana Cisneros MD Work Phone: [facility] 05-26-2024 09:18-0500 Diastolic blood pressure 82 mm[Hg] Stas Mora MD Work Phone: [facility] 05-26-2024 09:18-0500 Systolic blood pressure 144 mm[Hg] Stas Mora MD Work Phone: [facility] 05-26-2024 09:06-0500 Body mass index (BMI) [Ratio] 22.19 kg/m2 Stas Mora MD Work Phone: [facility] 05-26-2024 09:06-0500 Body weight 73.5 kg Stas Mora MD Work Phone: [facility] 05-26-2024 09:06-0500 Heart rate 56 /min Stas Mora MD Work Phone: [facility] 05-26-2024 09:06-0500 Respiratory rate 18 /min Stas Mora MD Work Phone: [facility] 04-27-2024 09:34-0500 Body height 182 cm Luciana Cisneros MD Work Phone: [facility] 04-27-2024 09:34-0500 Body mass index (BMI) [Ratio] 22.51 kg/m2 Luciana Cisneros MD Work Phone: [facility] 04-27-2024 09:34-0500 Body weight 74.57 kg Luciana Cisneros MD Work Phone: [facility] 04-27-2024 09:34-0500 Diastolic blood pressure 62 mm[Hg] Luciana Cisneros MD Work Phone: [facility] 04-27-2024 09:34-0500 Heart rate 60 /min Luciana Cisneros MD Work Phone: [facility] 04-27-2024 09:34-0500 SaO2% (BldA) [Mass fraction] 98 % Luciana Cisneros MD Work Phone: [facility] 04-27-2024 09:34-0500 Systolic blood pressure 110 mm[Hg] Luciana Cisneros MD Work Phone: [facility] 11-26-2023 10:33-0400 Diastolic blood pressure 80 mm[Hg] Stas Mora MD Work Phone: [facility] 11-26-2023 10:33-0400 Systolic blood pressure 144 mm[Hg] Stas Mora MD Work Phone: [facility] 11-26-2023 10:22-0400 Body mass index (BMI) [Ratio] 21.95 kg/m2 Stas Mora MD Work Phone: [facility] 11-26-2023 10:22-0400 Body weight 71.4 kg Stas Mora MD Work Phone: [facility] 11-26-2023 10:22-0400 Heart rate 60 /min Stas Mora MD Work Phone: [facility] 11-26-2023 10:22-0400 Respiratory rate 18 /min Stas Mora MD Work Phone: [facility] 09-15-2023 08:38-0400 Body mass index (BMI) [Ratio] 24.52 kg/m2 Stas Mora MD Work Phone: [facility] 09-15-2023 08:38-0400 Body weight 79.74 kg Stas Mora MD Work Phone: [facility] 09-15-2023 08:38-0400 Diastolic blood pressure 84 mm[Hg] Stas Mora MD Work Phone: [facility] 09-15-2023 08:38-0400 Heart rate 76 /min Stas Mora MD Work Phone: [facility] 09-15-2023 08:38-0400 Respiratory rate 18 /min Stas Mora MD Work Phone: [facility] 09-15-2023 08:38-0400 Systolic blood pressure 138 mm[Hg] Stas Mora MD Work Phone: [facility] 08-14-2023 09:57-0400 Body mass index (BMI) [Ratio] 22.59 kg/m2 Stas Mora MD Work Phone: [facility] 08-14-2023 09:57-0400 Body weight 73.48 kg Stas Mora MD Work Phone: [facility] 08-14-2023 09:57-0400 Diastolic blood pressure 80 mm[Hg] Stas Mora MD Work Phone: [facility] 08-14-2023 09:57-0400 Heart rate 64 /min Stas Mora MD Work Phone: [facility] 08-14-2023 09:57-0400 Respiratory rate 14 /min Stas Mora MD Work Phone: [facility] 08-14-2023 09:57-0400 Systolic blood pressure 140 mm[Hg] Stas Mora MD Work Phone: [facility] 06-01-2023 15:08-0400 Body weight 75.75 kg Stas Mora MD Work Phone: [facility] 06-01-2023 15:08-0400 Diastolic blood pressure 90 mm[Hg] Stas Mora MD Work Phone: [facility] 06-01-2023 15:08-0400 Heart rate 82 /min Stas Mora MD Work Phone: [facility] 06-01-2023 15:08-0400 Respiratory rate 16 /min Stas Mora MD Work Phone: [facility] 06-01-2023 15:08-0400 SaO2% (BldA) [Mass fraction] 100 % Stas Mora MD Work Phone: [facility] 06-01-2023 15:08-0400 Systolic blood pressure 140 mm[Hg] Stas Mora MD Work Phone: [facility] 02-16-2023 13:57-0500 Diastolic blood pressure 62 mm[Hg] Stas Mora MD Work Phone: [facility] 02-16-2023 13:57-0500 Heart rate 62 /min Stas Mora MD Work Phone: [facility] 02-16-2023 13:57-0500 Respiratory rate 16 /min Stas Mora MD Work Phone: [facility] 02-16-2023 13:57-0500 Systolic blood pressure 110 mm[Hg] Stas Mora MD Work Phone: [facility] 02-10-2023 16:59-0500 Diastolic blood pressure 68 mm[Hg] [facility] 02-10-2023 16:59-0500 Heart rate 79 /min [facility] 02-10-2023 16:59-0500 Respiratory rate 12 /min [facility] 02-10-2023 16:59-0500 SaO2% (BldA) [Mass fraction] 98 % [facility] 02-10-2023 16:59-0500 Systolic blood pressure 153 mm[Hg] [facility] 02-10-2023 14:37-0500 Body mass index (BMI) [Ratio] 22.1 kg/m2 [facility] 02-10-2023 14:37-0500 Body weight 74.3 kg [facility] 02-10-2023 14:32-0500 Body height 182.88 cm [facility] 02-10-2023 14:32-0500 Body temperature 98 [degF] [facility] 11-17-2022 17:22-0400 Diastolic Blood Pressure Non-Invasive 68 1 [email or web address] [facility] 11-17-2022 17:22-0400 Heart rate 76 /min [employer] [facility] 11-17-2022 17:22-0400 Respiratory rate 18 /min [employer] [facility] 11-17-2022 17:22-0400 Systolic Blood Pressure Non-Invasive 126 1 [employer]LNIG [employer] [facility] 11-17-2022 15:23-0400 Body height 185.4 cm [employer] [facility] 11-17-2022 15:23-0400 Body temperature 97.88 [degF] STERLING DAIGLET [employer] [facility] 11-17-2022 15:23-0400 Body weight 79.6 kg STERLING LYNCH [employer] [facility] 11-17-2022 15:23-0400 Diastolic Blood Pressure Non-Invasive 70 1 STERLING LYNCH DO [facility] 11-17-2022 15:23-0400 Heart rate 89 /min STERLING LYNCH DO [facility] 11-17-2022 15:23-0400 Respiratory rate 18 /min STERLING LYNCH DO [facility] 11-17-2022 15:23-0400 Systolic Blood Pressure Non-Invasive 134 1 STERLING LYNCH DO [facility] 08-26-2022 13:12-0400 Body height 180.3 cm Stas Mora MD Work Phone: [facility] 08-26-2022 13:12-0400 Body weight 78.74 kg Stas Mora MD Work Phone: [facility] 08-26-2022 13:12-0400 Diastolic blood pressure 74 mm[Hg] Stas Mora MD Work Phone: [facility] 08-26-2022 13:12-0400 Heart rate 66 /min Stas Mora MD Work Phone: [facility] 08-26-2022 13:12-0400 Respiratory rate 16 /min Stas Mora MD Work Phone: [facility] 08-26-2022 13:12-0400 Systolic blood pressure 122 mm[Hg] Stas Mora MD Work Phone: [facility] 12-26-2021 11:22-0400 Body weight 78.56 kg Stas Mora MD Work Phone: [facility] 12-26-2021 11:22-0400 Diastolic blood pressure 80 mm[Hg] Stas Mora MD Work Phone: [facility] 12-26-2021 11:22-0400 Heart rate 58 /min Stas Mora MD Work Phone: [facility] 12-26-2021 11:22-0400 Respiratory rate 16 /min Stas Mora MD Work Phone: [facility] 12-26-2021 11:22-0400 Systolic blood pressure 142 mm[Hg] Stas Mora MD Work Phone: [facility] 12-22-2021 11:13-0400 Body temperature 97.6 [degF] Dr. Stas Mora Work Phone: [facility] Work Phone: 12-22-2021 11:13-0400 Diastolic blood pressure 58 mm[Hg] Dr. Stas Mora Work Phone: [facility] Work Phone: 12-22-2021 11:13-0400 Heart rate 63 /min Dr. Stas Mora Work Phone: [facility] Work Phone: 12-22-2021 11:13-0400 Respiratory rate 16 /min Dr. Stas Mora Work Phone: [facility] Work Phone: 12-22-2021 11:13-0400 SaO2% (BldA) [Mass fraction] 96 % Dr. Stas Mora Work Phone: [facility] Work Phone: 12-22-2021 11:13-0400 Systolic blood pressure 142 mm[Hg] Dr. Stas Mora Work Phone: [facility] Work Phone: 12-21-2021 20:06-0400 Body height 182.[address] Stas Mora Work Phone: [facility] Work Phone: 12-21-2021 20:06-0400 Body mass index (BMI) [Ratio] 22.6 kg/m2 Dr. Stas Mora Work Phone: [facility] Work Phone: 12-21-2021 20:06-0400 Body weight 75.[address] Stas Mora Work Phone: [facility] Work Phone: 12-21-2021 19:15-0400 Diastolic blood pressure 81 mm[Hg] [facility] Work Phone: 12-21-2021 19:15-0400 Heart rate 70 /min [facility] Work Phone: 12-21-2021 19:15-0400 Respiratory rate 18 /min [facility] Work Phone: 12-21-2021 19:15-0400 SaO2% (BldA) [Mass fraction] 96 % [facility] Work Phone: 12-21-2021 19:15-0400 Systolic blood pressure 171 mm[Hg] [facility] Work Phone: 12-21-2021 19:02-0400 Body temperature 97.6 [degF] [facility] Work Phone: 12-21-2021 18:17-0400 Body height 182.88 cm [facility] Work Phone: 12-21-2021 18:17-0400 Body mass index (BMI) [Ratio] 24.2 kg/m2 [facility] Work Phone: 12-21-2021 18:17-0400 Body weight 80.9 kg [facility] Work Phone: 09-05-2021 11:21-0400 Body height 182.9 cm Stas Mora MD Work Phone: [facility] 09-05-2021 11:21-0400 Body weight 80.2 kg Stas Mora MD Work Phone: [facility] 09-05-2021 11:21-0400 Diastolic blood pressure 70 mm[Hg] Stas Mora MD Work Phone: [facility] 09-05-2021 11:21-0400 Heart rate 62 /min Stas Mora MD Work Phone: [facility] 09-05-2021 11:21-0400 Respiratory rate 16 /min Stas Mora MD Work Phone: [facility] 09-05-2021 11:21-0400 Systolic blood pressure 136 mm[Hg] Stas Mora MD Work Phone: [facility] 07-08-2021 10:41-0400 Body weight 83.55 kg Stas Mora MD Work Phone: [facility] 07-08-2021 10:41-0400 Diastolic blood pressure 78 mm[Hg] Stas Mora MD Work Phone: [facility] 07-08-2021 10:41-0400 Heart rate 60 /min Stas Mora MD Work Phone: [facility] 07-08-2021 10:41-0400 Respiratory rate 16 /min Stas Mora MD Work Phone: [facility] 07-08-2021 10:41-0400 Systolic blood pressure 120 mm[Hg] Stas Mora MD Work Phone: [facility] Encounters Encounter Date Encounter Type Care Provider Facility Start: 11-23-2024 ambulatory Efewongbe Gabee OLS Fa cility:[facility] Start: 11-23-2024 Registered Referred Shayy Curtis MD [facility] Start: 11-02-2024 ambulatory Efewongbe Oletomye OLS Fa cility:[facility] Start: 11-02-2024 Registered Referred Shayy Curtis MD [facility] Start: 10-31-2024 ambulatory Efewongbe Gabee OLS Fa cility:[facility] Start: 10-31-2024 Registered Referred Shayy Curtis MD [facility] Start: 10-25-2024 End: 10-25-[address] Stas Mora MD Work Phone: [facility] Start: 10-25-2024 End: 10-25-[address] Shayy Curtis MD -[facility] Work Phone: Start: 10-20-2024 End: 10-20-[address] Stas Mora MD Work Phone: -[facility] Start: 10-20-2024 End: 10-20-2024 Patient encounter procedure Halina HO -[facility] Work Phone: Start: 10-06-2024 ambulatory Shayy Villanueva cility:[facility] Start: 10-06-2024 [facility] Start: 10-05-2024 ambulatory Stas Frankel y:[facility] Start: 10-05-2024 Registered Referred Shayy MaloneyElmer - [facility] Start: 09-30-2024 End: 09-30-[address] Stas Mora MD Work Phone: -[facility] Start: 09-30-2024 End: 09-30-2024 Patient encounter procedure Halina HO -[facility] Work Phone: Start: 09-29-2024 ambulatory Stas Frankel y:[facility] Start: 09-29-2024 Registered Referred Shayy Cardozo Start: 09-28-2024 End: 09-28-[address] Stas Mora MD Work Phone: -[facility] Start: 09-28-2024 End: 09-28-2024 Departed Referred Shayy Cardozo Start: 09-28-2024 Registered Referred Shayy Cardozo Start: 09-28-2024 End: 09-28-2024 ambulatory Stas Mora Facility:[facility] Start: 09-26-2024 End: 09-26-[address] Stas Mora MD Work Phone: -[facility] Start: 09-26-2024 End: 09-26-2024 Departed Referred Shayy Cardozo Start: 09-26-2024 Registered Referred Shayy Cardozo Start: 09-26-2024 End: 09-26-2024 ambulatory Efewongbe Oletomye OLS Facility:[facility] Start: 09-23-2024 ambulatory Stas Frankel y:[facility] Start: 09-23-2024 Registered Referred Shayy Cardozo Start: 09-21-2024 End: 09-22-2024 Telephone encounter Stas Mora MD Work Phone: [facility] Start: 09-21-2024 ambulatory Stas Frankel y:[facility] Start: 09-21-2024 Registered Referred Shayy Cardozo Start: 09-20-2024 End: 09-20-[address] Stas Mora MD Work Phone: [facility] Start: 09-20-2024 End: 09-20-[address] Shayy Curtis MD -[facility] Work Phone: Start: 09-19-2024 ambulatory Efbaldomero Bernale OLS Fa cility:[facility] Start: 09-19-2024 Registered Referred Shayy Cardozo Start: 09-15-2024 ambulatory Efewtimmy Bernale OLS Fa cility:[facility] Start: 09-15-2024 Registered Referred Shayy Cardozo Start: 09-14-2024 ambulatory Efewongirlanda Curtis OLS Fa cility:[facility] Start: 09-14-2024 Registered Referred Shayy Cardozo Start: 09-12-2024 ambulatory Efewongbe Gabee OLS Fa cility:[facility] Start: 09-12-2024 Registered Referred Shayy Cardozo Start: 09-08-2024 End: 09-08-2024 Patient encounter procedure Halinabrii Carmona [facility] Work Phone: Start: 09-08-2024 End: 09-08-[address] Stas Mora MD Work Phone: [facility] Start: 09-08-2024 Registered Referred Shayy Cardozo Start: 09-07-2024 End: 09-07-2024 Patient encounter procedure Halinabrii Lintonimelda [facility] Work Phone: Start: 09-07-2024 End: 09-07-[address] Stas Mora MD Work Phone: [facility] Start: 09-07-2024 Registered Referred Shayy Cardozo Start: 09-06-2024 Non-patient / Non-visit Dr. Navid Dominguez MD -[facility] Work Phone: Start: 09-05-2024 Non-patient / Non-visit Dr. Navid Dominguez MD [facility] Work Phone: Start: 09-04-2024 Non-patient / Non-visit Dr. Andrea Wells MD [facility] Work Phone: Start: 09-03-2024 Non-patient / Non-[facility]: Start: 09-02-2024 Non-patient / Non-[facility] Work Phone: Start: 09-02-2024 ambulatory Kathy Wells [place] Start: 09-02-2024 End: 09-06-2024 Evaluation and management of inpatient Dr. Navid Dominguez MD -[facility] Work Phone: Start: 09-01-2024 End: 09-01-2024 Telephone encounter Russell Aguayo [facility] Work Phone: [facility] Comment on above: Medication Problem ( Cost) Start: 09-01-2024 ambulatory Kathy Wells [place] Start: 09-01-2024 Evaluation and management of inpatient Dr. Kathy Wells MD -[facility] Work Phone: Start: 09-01-2024 Non-patient / Non-visit Dr. Andrea Wells MD -[facility] Work Phone: Start: 09-01-[address] Stas Mora MD Work Phone: [facility] Work Phone: Start: 08-31-2024 End: 08-31-2024 Telephone encounter Coretta Jalloh [facility] Tele[facility] Comment on above: Anticoagulation Tele phone Fu (Home INR result ) Start: 08-31-2024 End: 08-31-2024 ambulatory STAS MORA Facility:[facility] Start: 08-31-2024 End: 08-31-2024 Office outpatient visit 25 minutes Luciana Cisneros MD Work Phone: Geriatrics Comment on above: Moderate dementia wi thout behavioral disturbance, psychotic disturbance, mood disturbance, or anxiety, unspecified dementia type (HCC) (Primary Dx); Hallucinations; Screening for depression; Encounter for screening examination for other mental health and behavioral disorders Start: 08-31-2024 End: 08-31-2024 ambulatory LUCIANA CISNEROS Facility:[facility] Start: 08-03-2024 End: 08-03-2024 Telephone encounter Coretta Jalloh [facility] Comment on above: Anticoagulation Tele phone Fu (Lab INR result) Start: 08-03-2024 End: 08-03-2024 ambulatory STAS MORA Facility:[facility] Start: 07-28-2024 End: 07-28-2024 Office outpatient visit 15 minutes Stas Mora MD Work Phone: [facility] [place] Comment on above: Bursitis of right el bow, unspecified bursa (Primary Dx) Start: 07-28-2024 End: 07-28-2024 ambulatory [facility] Facility:[facility] Start: 07-06-2024 End: 07-06-2024 Telephone encounter Coretta Jalloh [facility] Ambulatory Telemanagement Comment on above: Anticoagulation Tele phone Fu (Lab INR result ) Start: 07-06-2024 End: 07-06-2024 [facility] Facility:[facility] Start: 06-29-2024 End: 06-29-2024 Telephone encounter Coretta Jalloh [facility] Ambulatory Telemanagement Comment on above: Anticoagulation Tele phone Fu (Lab INR result ) Start: 06-29-2024 End: 06-29-2024 [facility] Facility:[facility] Start: 06-01-2024 End: 06-01-2024 Office consultation new/estab patient 80 min Luciana Cisneros MD Work Phone: Geriatrics Comment on above: Mixed dementia (HCC) (Primary Dx); Vascular parkinsonism (HCC) Start: 06-01-2024 End: 06-01-2024 [facility] Facility:[facility] Start: 06-01-2024 End: 08-01-2024 Follow-up encounter Luciana Cisneros MD Work Phone: Geriatrics Start: 05-26-2024 End: 05-26-2024 Telephone encounter Luciana Cisneros MD Work Phone: Geriatrics Comment on above: Appointment (Resched ule for geriatric f/u) Start: 05-26-2024 End: 05-26-2024 ambulatory [facility] Facility[facility] Start: 05-26-2024 End: 05-26-2024 Patient encounter procedure Stas Mora MD Work Phone: [facility] [place] Comment on above: Essential hypertensi on, benign (Primary Dx); Hyperlipidemia, unspecified hyperlipidemia type; Atherosclerosis 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, unspecified vessel or lesion type, unspecified whether [place] or transplanted heart; Paroxysmal atrial fibrillation (HCC); Edema of both lower legs; History of stroke with residual effects; Dementia, unspecified dementia severity, unspecified dementia type, unspecified whether behavioral, psychotic, or mood disturbance or anxiety (HCC) Start: 05-25-2024 End: 05-25-2024 Telephone encounter Paige Hickman [facility] Ambulatory Telemanagement Comment on above: Anticoagulation Tele phone Fu (Lab INR Result ) Start: 05-25-2024 End: 05-25-2024 ambulatory STAS MORA Facility:[facility] Start: 05-23-2024 ambulatory LUCIANA CISNEROS Facility :[id number] Start: 05-23-2024 End: 05-23-2024 Subsequent hospital visit by physician [facility] Work Phone: [facility] Comment on above: Cognitive impairment , mild, 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] Start: 04-28-2024 End: 04-29-2024 Telephone encounter Stas Mora MD Work Phone: [facility] [place] Comment on above: Results Start: 04-27-2024 End: 04-27-2024 Telephone encounter Coretta Jalloh [facility] Comment on above: Anticoagulation Tele phone Fu (Lab INR result ) Start: 04-27-2024 End: 04-27-2024 ambulatory LUCIANA CISNEROS Facility:[facility] Start: 04-27-2024 End: 04-27-2024 Assmt & care planning pt w/cognitive impairment Luciana Cisneros MD Work Phone: Geriatrics Comment on above: Dementia, unspecifie d dementia severity, unspecified dementia type, unspecified whether behavioral, psychotic, or mood disturbance or anxiety (HCC) (Primary Dx); Cognitive impairment; Cognitive impairment, mild, so stated; Shuffling gait; Ambulatory dysfunction; Balance disorder Start: 04-27-2024 End: 04-27-2024 ambulatory LUCIANA CISNEROS Facility:[facility] Start: 04-25-2024 End: 04-25-2024 Telephone encounter Stas Mora MD Work Phone: [facility] [place] Comment on above: memory issues Start: 04-13-2024 End: 04-13-2024 Telephone encounter Coretta Jalloh [facility]ulatory [facility] Comment on above: Anticoagulation Tele phone Fu (Home INR result ) Start: 04-13-2024 End: 04-13-2024 ambulatory [facility] Facility[facility] Start: 03-30-2024 End: 03-30-2024 Telephone encounter Coretta Jalloh [facility]ulatory [facility] Comment on above: Anticoagulation Tele phone Fu (Lab INR result ) Start: 03-30-2024 End: 03-30-2024 ambulatory [facility] Facility[facility] Start: 03-17-2024 End: 03-17-2024 Telephone encounter Josy Gandhi [facility] Comment on above: Anticoagulation Tele phone Fu (Lab INR result ) Start: 03-17-2024 End: 03-17-2024 ambulatory [facility] Facility[facility] Start: 03-03-2024 End: 03-03-2024 Telephone encounter Elise Paredes [facility]ulatory [facility]management Comment on above: Anticoagulation Tele phone Fu (Lab INR result) Start: 03-03-2024 End: 03-03-2024 ambulatory [facility] Facility[facility] Start: 02-10-2024 End: 02-10-2024 Telephone encounter Coretta Jalloh [facility] Ambulatory [facility] Comment on above: Anticoagulation Tele phone Fu (Lab INR result ) Start: 02-10-2024 End: 02-10-2024 [facility] Start: 01-20-2024 End: 01-20-2024 Telephone encounter Coretta Jalloh [facility] Comment on above: Anticoagulation Tele phone Fu (Lab INR results ) Start: 01-20-2024 End: 01-20-2024 ambulatory [facility] Facility[facility] Start: 01-04-2024 End: 01-04-2024 Telephone encounter Stas Mora MD Work Phone: [facility] Comment on above: Medication Request Start: 12-24-2023 End: 12-24-2023 Telephone encounter Elise Paredes [facility]ulatory [facility]management Comment on above: Anticoagulation Tele phone Fu (Lab INR) Start: 12-23-2023 End: 12-23-2023 ambulatory [facility] Facility[facility] Start: 12-10-2023 End: 12-10-2023 Telephone encounter Elise Paredes [facility]ulatory [facility] Comment on above: Anticoagulation Tele phone Fu (Lab INR) Start: 12-09-2023 End: 12-09-2023 ambulatory STAS Trejo [facility] Start: 11-26-2023 End: 11-26-2023 Telephone encounter Elise Paredes [facility] Ambulatory Telemanagement Comment on above: Anticoagulation Tele phone Fu (Lab INR) Start: 11-26-2023 End: 11-26-2023 ambulatory STAS Trejo [facility] Start: 11-26-2023 End: 11-26-2023 Patient encounter procedure Stas Mora MD Work Phone: [facility] [place] Comment on above: Essential hypertensi on, benign (Primary Dx); Hyperlipidemia, unspecified hyperlipidemia type; Edema of both lower legs; Paroxysmal atrial fibrillation (HCC); History of stroke with residual effects; 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 Ambulatory Telemanagement Comment on above: Anticoagulation Tele phone Fu (Home INR results ) Start: 09-16-2023 Telephone encounter Colleen Sommer [facility] Ambulatory Telemanagement Comment on above: Anticoagulation Tele phone Fu Start: 09-15-2023 End: 09-15-2023 Patient encounter procedure Stas Mora MD Work Phone: [facility] [place] Comment on above: Edema of both lower legs (Primary Dx) Start: 09-14-2023 End: 09-14-2023 ambulatory Nurse Intm/Famp Triage [facility] Work Phone: Nurse Phone Triage Comment [...] encounter procedure Stas Mora MD Work Phone: [facility] Comment on above: Moderate vascular de mentia [...] results ) Start: 07-16-2023 Refill Elvis RASHID RN.SUPERVISOR KENNEL Work Phone: [facility] Comment on above: Refill Request Start: 07-15-2023 [...] Telephone encounter Jerzy Easton MD Work Phone: [facility] [place] Comment on above: Anticoagulation Start: 06-11-2023 Telephone encounter Stas miranda MD Work Phone: [facility] [place] Comment on above: Anticoagulation Start: 06-08-2023 Telephone encounter Jenna Armenta nhof [employer] WORK CLEANER.SUPERVISOR KENNEL Work Phone: [facility] [place] Comment on above: Erroneous encounter- disregard Anticoagulation Start: 06-05-2023 Telephone encounter Jenna Armenta nhof WH[employer] WORK CLE[employer]ER.SUPERVISOR KENNEL Work Phone: [facility] [place] Comment on above: Results (Labs, Criti cleopatra ) Start: 06-04-2023 ambulatory Hortencia Winston RN NURSE O N CALL Comment on above: Results, Lab High Protime and INR Start: 06-04-2023 E-mail encounter fro m caregiver Jasmin Bell MD Work Phone: [facility] [place] Start: 06-04-2023 Telephone encounter Jenna singhof WHITE WORK CLEANER.SUPERVISOR KENNEL Work Phone: [facility] [place] Comment on above: Results; Orders (Lab s ) Start: 06-03-2023 Telephone encounter [facility] Ambulatory Tele[facility] Comment on above: Anticoagulation Tele phone Fu (Lab INR results ) Start: 06-01-2023 End: 06-01-2023 Patient encounter procedure Stas Mora MD Work Phone: [facility] [place] Comment on above: Essential hypertensi on, benign (Primary Dx); Paroxysmal atrial fibrillation (HCC); Atherosclerosis 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, unspecified vessel or lesion type, unspecified whether [place] or transplanted heart; Hyperlipidemia, unspecified hyperlipidemia type; [...] Start: 05-13-2023 Telephone encounter Senia Phillips [facility] Ambulatory Telemanagement Comment [...] Start: 02-20-2023 Telephone encounter Elise Paredes [facility] Comment on above: Anticoagulation Tele phone Fu (Lab INR) Start: 02-17-2023 Telephone encounter Stas miranda MD Work Phone: [facility] Comment on above: Results Start: 02-17-2023 End: 02-17-2023 Subsequent hospital visit by physician Mri Radio [facility] (I-Stat/1.5t) Work Phone: Radiology Comment on above: Cerebral infarction, unspecified mechanism (HCC) [I63.9] Start: 02-16-2023 End: 02-16-2023 Patient encounter procedure Stas Mora MD Work Phone: [facility] Comment on above: Cerebral infarction, unspecified mechanism (HCC) (Primary Dx); Generalized weakness; Speech disturbance, unspecified type; Hyperlipidemia, unspecified hyperlipidemia type; Essential hypertension, benign; Paroxysmal atrial fibrillation (HCC) Start: 02-13-2023 Telephone encounter Elise Paredes [facility] Tele[facility] Comment on above: Anticoagulation Tele phone Fu (Lab INR) Start: 02-10-2023 End: 02-10-2023 Emergency department patient visit [facility] Work Phone: Start: 02-06-2023 Telephone encounter Senia Phillips [facility] Ambulatory Telemanagement Comment on above: Anticoagulation Tele phone Fu (INR Lab Result) Start: 01-19-2023 Telephone encounter Paige Hickman [facility] Ambulatory Telemanagement Comment on above: Anticoagulation Tele phone Fu Start: 01-16-2023 Orders Only Stas newman MD Work Phone: [facility] [place] Comment on above: USP current us e of anticoagulant (Primary Dx); [...] Emergency department patient visit STERLING LYNCH DO [facility] Start: 11-07-2022 Telephone encounter Senia Cross [...] procedure Stas Mora MD Work Phone: [facility] [place] Comment on above: Encounter for [...] Result) Start: 07-04-2022 Telephone encounter Lety Stephenaston [facility] Comment on above: Anticoagulation Tele phone Fu (Lab INR result ) Start: 06-23-2022 Refill Elvis RASHID RN.SUPERVISOR KENNEL Work Phone: [facility] Comment on above: Refill Request Start: 06-20-2022 Telephone encounter Senia Cross [facility] harmacy Ambulatory Telemanagement Comment on above: Anticoagulation Tele phone Fu (INR Lab Result) Start: 06-06-2022 Telephone encounter Senia Cross [facility]acy Ambulatory Telemanagement Comment on above: Anticoagulation Tele phone Fu (INR Lab Result) Start: 05-30-2022 Telephone encounter Stas miranda MD Work Phone: [facility] Comment on above: Opened In Error Start: 05-22-2022 Telephone encounter Jenna Armenta nhof WH[employer] WORK CLEANER.SUPERVISOR KENNEL Work Phone: [facility] [place] Comment on above: Results (X-ray hip) Start: 05-21-2022 End: 05-21-2022 Subsequent hospital visit by physician Jyamie [facility] [place] Work Phone: Radiology Comment on above: Left hip pain [M25.5 52] Start: 05-21-2022 ambulatory Fani Grace RN NURSE O N CALL Comment on above: Fall Fall; Hip Pain Start: 05-19-2022 Telephone encounter Stas miranda MD Work Phone: [facility] [place] Comment on above: Anticoagulation Start: 05-16-2022 Telephone encounter Senia Cross [facility] Ambulatory [facility] Comment on above: Anticoagulation Tele phone Fu Start: 05-02-2022 Telephone encounter Senia Phillips [facility] Ambulatory Tele[facility] Comment on above: Anticoagulation Tele phone Fu (INR Lab Result) Start: 04-18-2022 Telephone encounter Senia Phillips [facility] Ambulatory Telemanagement Comment on above: Anticoagulation Tele phone Fu (INR Lab Result) Start: 04-04-2022 Telephone encounter Elise Paredes [facility] Comment on above: Anticoagulation Tele phone Fu (Lab INR) Start: 03-31-2022 Telephone encounter Stas miranda MD Work Phone: [facility] [place] Comment on above: Release Of Medical R ecords ([place] PCP) Start: 03-21-2022 Telephone encounter Carmelinajustin Cruz [facility] Comment on above: Anticoagulation Tele phone Fu Start: 02-21-2022 Telephone encounter Kristian Ferguson MD Work Phone: [facility] [place] Comment on above: Anticoagulation Start: 02-10-2022 Telephone encounter Stas miranda MD Work Phone: [facility] [place] Comment on above: Opened In Error Start: 01-27-2022 Telephone encounter Paige [facility] Amb[facility] Comment on above: Anticoagulation Tele phone Fu (Lab INR Result) Start: 01-20-2022 Telephone encounter Paige [facility] Comment on above: Anticoagulation Tele phone Fu (Lab INR Result) Start: 01-17-2022 Telephone encounter Stas miranda MD Work Phone: [facility] [place] Comment on above: Anticoagulation; Cri tical Results (INR) Start: 01-13-2022 Refill Stas newman MD Work Phone: [facility] [place] Comment on above: Refill Request; Refi ll Request Start: 01-03-2022 Telephone encounter Senia Phillips [facility] Ambulatory Telemanagement Comment on above: Anticoagulation Tele phone Fu (INR Home Test Result) Start: 01-02-2022 Telephone encounter Stas miranda MD Work Phone: [facility] [place] Comment on above: Results Start: 12-26-2021 End: 12-26-2021 Patient encounter procedure Stas Mora MD Work Phone: [facility] Comment on above: Hospital discharge f ollow-up (Primary Dx); Encounter for immunization; TIA (transient ischemic attack); Thyroid nodule; Essential hypertension, benign; Paroxysmal atrial fibrillation (HCC); Atherosclerosis 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, unspecified vessel or lesion type, unspecified whether [place] or transplanted heart Start: 12-22-2021 Non-patient / Non-visit Dr. Maria E Mora Work Phone: [facility] Start: 12-21-2021 Non-patient / Non-visit Dr. Maria E Mora Work Phone: [facility] Start: 12-21-2021 End: 12-22-2021 Evaluation and management of inpatient [facility] Start: 12-21-2021 End: 12-22-[address] Stas Mora Work Phone: [facility] Work Phone: Start: 12-20-2021 Telephone encounter Stas miranda MD Work Phone: [facility] Comment on above: Opened In Error Anticoagulation Tele phone Fu (INR Lab Result) Start: 12-06-2021 Telephone encounter Senia Phillips [facility] Ambulatory Telemanagement Comment on above: Anticoagulation Tele phone Fu (INR Lab Result) Start: 11-22-2021 Telephone encounter Janice Huang [facility]ulatory Telemanagement Comment on above: Anticoagulation Tele phone Fu (INR) Start: 11-08-2021 Telephone encounter Stas miranda MD Work Phone: [facility] Comment on above: Opened In Error Anticoagulation Tele phone Fu (INR Lab Result) Start: 10-25-2021 Telephone encounter Janice Huang [facility]ulatory Telemanagement Comment on above: Anticoagulation Tele phone Fu (lab INR ) Start: 09-27-2021 Telephone encounter Yomi Wills [facility] Ambulatory Telemanagement Comment on above: Anticoagulation Tele phone Fu (Lab INR Result) Start: 09-13-2021 Orders Only Stas newman MD Work Phone: [facility] [place] Comment on above: USP current us e of anticoagulant (Primary Dx); Encounter for monitoring Coumadin therapy Anticoagulation Tele phone Fu (INR Lab Result) Start: 09-05-2021 End: 09-05-2021 Patient encounter procedure Stas Mora MD Work Phone: [facility] [place] Comment on above: Encounter for Medica re annual wellness exam (Primary Dx); Paroxysmal atrial fibrillation (HCC); Essential hypertension, benign Start: 08-30-2021 Telephone encounter Jenna Armenta nhof WHITE WORK CLEANER.SUPERVISOR KENNEL Work Phone: [facility] [place] Comment on above: Orders (INR ) Anticoagulation Tele phone Fu (INR Lab Result) Start: 08-16-2021 Orders Only Stas newman MD Work Phone: [facility] [place] Comment on above: Anticoagulation Start: 08-02-2021 Telephone encounter Senia Phillips [facility] Telemanagement Comment on above: Anticoagulation Tele phone Fu (INR Lab Result) Start: 07-16-2021 Telephone encounter Stas miranda MD Work Phone: [facility] [place] Comment on above: Results Start: 07-13-2021 Refill Elvis RASHID RN.SUPERVISOR KENNEL Work Phone: [facility] [place] Comment on above: Refill Request Start: 07-08-2021 End: 07-08-2021 Patient encounter procedure Stas Mora MD Work Phone: [facility] [place] Comment on above: Essential hypertensi on, benign (Primary Dx); Atherosclerosis 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, unspecified vessel or lesion type, unspecified whether [place] or transplanted heart; Paroxysmal atrial fibrillation (HCC); Primary osteoarthritis of both knees Start: 07-03-2021 Telephone encounter Stas miranda MD Work Phone: [facility] [place] Comment on above: Anticoagulation Tele phone Fu (Lab INR result) Start: 06-12-2021 Telephone encounter Stas miranda MD Work Phone: [facility] [place] Comment on above: Anticoagulation (Lab INR result) Start: 03-12-2020 End: 03-12-2020 Subsequent hospital visit by physician Jaymie [facility] [place] Work Phone: Radiology Comment on above: Acute right-sided lo w back pain, unspecified whether sciatica present [M54.5] Start: 02-02-2018 Ambulatory DARRELL OLIVEIRA Facility :[facility] Start: 06-02-2017 End: 06-02-2017 [facility] DARRELL OLIVEIRA [facility] Procedures Date Procedure Procedure Detail Performing [...] depression scr eening assessment Coretta Jalloh [facility] Start: 02-17-2023 Mri brain brain stem w/o contrast material Stas Mora MD Work Phone: Start: 02-10-2023 Plain chest X-ray Start: 02-10-2023 SARS-CoV-2 & FLU Ant igen (Rapid) Start: 05-21-2022 Radex hip unilateral with pelvis 2-3 views Jenna Fitzpatrick WHITE WORK CLEANER.SUPERVISOR KENNEL Work Phone: Start: 05-19-2022 PROTHROMBIN TIME/PT [facility] [...] Detail Author Start: 02-27-2031 Urine microalbumin profile [facility] Start: 05-26-2027 Diabetes Screening Diabetes Screenin [facility] Start: 06-02-2026 Diabetes Screening Diabetes Screenin g [facility] Start: 08-15-2025 DIABETES SCREEN DIABETES SCREEN [facility] Start: 08-15-2025 Diabetes Screening Diabetes Screenin g [facility] Start: 05-25-2025 Hepatitis B surface antibody level LDL Cholesterol [facility] Start: 03-30-2025 End: 03-30-2025 Patient encounter procedure 03/30/2025 11:00 AM EST Office Visit Geriatrics [address] [facility] [id number] Luciana Cisneros MD [address] [place] [id number] follow up 6 months Geriatrics Comment on above: follow up 6 months Start: 02-21-2025 DIABETES SCREEN DIABETES SCREEN [facility] Start: 12-06-2024 DIABETES SCREEN DIABETES SCREEN [facility] Start: 12-05-2024 End: 12-05-2024 Patient encounter procedure 12/05/2024 12:40 PM EDT Office Visit [facility] [address] [facility] [place] [id number] Stas Mora MD [address] [facility] [place], [place] [id number] reschedule from 12/01 [facility] Comment on above: reschedule from 12/01 Start: 12-01-2024 End: 12-01-2024 Patient encounter procedure 12/01/2024 9:40 AM EDT Office Visit [facility] [address] [facility] [place] [id number] Stas Mora MD [address] [facility] [place] [place] [id number] 6 mo f/u [facility] Comment on above: 6 mo f/u Start: 11-26-2024 End: 02-25-2025 CBC W Auto Differential panel - Blood COMPLETE BLOOD COUNT AND DIFFERENTIAL Lab Routine Essential hypertension, benign Expected: 11/26/2024 (Approximate), Expires: 02/25/2025 [facility] Comment on above: Expected: 11/26/2024 (Approximate), Expires: 02/25/2025 Start: 11-26-2024 End: 02-25-2025 Comprehensive metabolic 2000 panel - Serum or Plasma COMPREHENSIVE METABOLIC PANEL Lab Routine Essential hypertension, benign Hyperlipidemia, unspecified hyperlipidemia type Expected: 11/26/2024 (Approximate), Expires: 02/25/[address] [facility] Work Phone: Comment on above: Expected: 11/26/2024 (Approximate), Expires: 02/25/2025 Start: 11-26-2024 End: 02-25-2025 Lipid 1996 panel - Serum or Plasma LIPID PANEL BASIC Lab Routine Essential hypertension, benign Hyperlipidemia, unspecified hyperlipidemia type Expected: 11/26/2024 (Approximate), Expires: 02/25/2025 [facility] Comment on above: Expected: 11/26/2024 (Approximate), Expires: 02/25/2025 Start: 11-25-2024 RSV Vaccine (1 - 1-d ose 60+ series) RSV Vaccine (1 - 1-dose 60+ series) [facility] Comment on above: Postponed from 08/12 (Declined at this time) Start: 11-25-2024 RSV Vaccine (1 - 1-d ose 75+ series) RSV Vaccine (1 - 1-dose 75+ series) [facility] Comment on above: Postponed from 08/12 (Declined at this time) Start: 11-23-2024 [facility] Start: 11-21-2024 Influenza vaccination Influenza Vacc ine (#1) [facility] Start: 09-06-2024 Patient discharge [facility] Start: 09-02-2024 Admission procedure [facility] Start: 09-01-2024 End: 09-02-2024 [facility] Start: 09-01-2024 Blood culture Blood Culture [facility] Start: 09-01-2024 Application of intermittent pneumatic compression device [facility] Start: 09-01-2024 Fall prevention [facility] Start: 09-01-2024 Oxygen therapy [facility] Start: 09-01-2024 Provision of activit y privileges [facility] Start: 09-01-2024 Assessment of risk o f venous thromboembolism [facility] Start: 09-01-2024 Insertion of cathete r into peripheral vein [facility] Start: 09-01-2024 Providing care accor ding to standard [facility] Start: 09-01-2024 Referral to occupati onal therapist [facility] Start: 09-01-2024 Referral to service [facility] Start: 09-01-2024 [facility] Start: 09-01-2024 Following clinical pathway protocol [facility] Start: 09-01-2024 Admission procedure [facility] Start: 09-01-2024 Hospital admission, emergency, from emergency room, medical nature [facility] Start: 08-31-2024 End: 08-31-2024 Patient encounter procedure 08/31/2024 11:00 AM EDT Office Visit Geriatrics [address] [facility] [address] Luciana Cisneros MD [address] [place] [address] 3 month f/u Geriatric[facility] Comment on above: 3 month f/u Start: 2024 Anxiety Screening Anxiety Screening [facility] Start: 2024 Depression Screening Depression Scre ening [facility] Start: 07-08-2024 DIABETES SCREEN DIABETES SCREEN [facility] Start: 06-02-2024 Hepatitis B surface antibody level LDL Cholesterol [facility] Start: 06-01-2024 End: 06-01-2024 Patient encounter procedure 06/01/2024 3:00 PM EDT Office Visit Geriatrics [address] [place] [address] Luciana Cisneros MD [address] [facility] [place] [address] Follow up visit for MRI [facility] Comment on above: Follow up visit for MRI Start: 06-01-2024 Covid-19 Vaccine () Covid-19 Vaccine () [facility] Start: 05-30-2024 End: 05-30-2024 Patient encounter procedure 05/30/2024 11:20 AM EDT Office Visit Internal Medicine [place] [address] [facility] [place] [address] Luciana Cisneros MD [address] [facility] [address] Follow up visit for MRI [facility] Comment on above: Follow up visit for MRI Start: 05-26-2024 End: 05-26-2024 Patient encounter procedure 05/26/2024 9:20 AM EST Office Visit Family Medicine [place] [address] [facility] [place], [place] [id number] Stas Mora MD [address] [facility] [address] 6 mo f/u [facility] Comment on above: 6 mo f/u Start: 05-25-2024 End: 08-24-2024 CBC W Auto Differential panel - Blood COMPLETE BLOOD COUNT AND DIFFERENTIAL Lab Routine Abnormal CBC Expected: 05/25/2024 (Approximate), Expires: 08/24/2024 [facility] Comment on above: Expected: 05/25/2024 (Approximate), Expires: 08/24/2024 Start: 05-25-2024 End: 08-24-2024 Comprehensive metabolic 2000 panel - Serum or Plasma COMPREHENSIVE METABOLIC PANEL Lab Routine Essential hypertension, benign Hyperlipidemia, unspecified hyperlipidemia type Expected: 05/25/2024 (Approximate), Expires: 08/24/[address] [facility] Work Phone: Comment on above: Expected: 05/25/2024 (Approximate), Expires: 08/24/2024 Start: 05-25-2024 End: 08-24-2024 Lipid 1996 panel - Serum or Plasma LIPID PANEL BASIC Lab Routine Essential hypertension, benign Hyperlipidemia, unspecified hyperlipidemia type Expected: 05/25/2024 (Approximate), Expires: 08/24/2024 [facility] Comment on above: Expected: 05/25/2024 (Approximate), Expires: 08/24/2024 Start: 05-25-2024 End: 05-25-2024 ambulatory 05/25/2024 8:30 AM EST Results Only [facility] [address] 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] [facility] Comment on above: Cognitive impairment , mild, 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] Start: 04-29-2024 End: 04-29-2024 Patient encounter procedure 04/29/2024 3:40 PM EST Office Visit [facility] [address] [place] [address] Stas Mora MD [address] [place], [place] [address] memory issues,See TE [facility] Comment on above: memory issues,See TE Start: 04-27-2024 End: 04-27-2024 Patient encounter procedure 04/27/2024 9:30 AM EST Office Visit Geriatrics [address] [place], [place] [id number] Luciana Cisneros MD [address] [place], [place] [id number] Dementia, unspecified dementia severity, unspecified dementia type, unspecified whether behavioral, psychotic, or mood disturbance or anxiety (HCC) [F03.90] [facility] Comment on above: Dementia, unspecifie d dementia severity, unspecified dementia type, unspecified whether behavioral, psychotic, or mood disturbance or anxiety (HCC) [F03.90] Start: 03-23-2024 Advance Directive Discussion Advance Directive Discussion [facility] Start: 03-23-2024 Medicare Advantage A nnual Wellness Visit Medicare Advantage Annual Wellness Visit [facility] Start: 03-13-2024 DIABETES SCREEN DIABETES SCREEN [facility] Start: 11-26-2023 End: 11-26-2023 Patient encounter procedure [facility] Comment on above: 6 month follow up 6 month follow up, jessica bashir, on aricept x 3 months Start: 11-22-2023 Covid-19 Vaccine ( season) Covid-19 Vaccine ( season) [facility] Start: 11-22-2023 Influenza vaccination Influenza Vacc ine (#1) [facility] Start: 09-15-2023 End: 09-15-2023 Patient encounter procedure 09/15/2023 8:40 AM EDT Office Visit [facility] [address] [place], [place] [address] Stas Mora MD [address] [place], [place] [id number] leg swelling- both legs--See triage 09/14/2023. [facility] Comment on above: leg swelling- both l egs--See triage 09/14/2023. Start: 08-16-2023 Hepatitis B surface antibody level LDL CHOLESTEROL [facility] Start: 08-14-2023 End: 08-14-2023 Patient encounter procedure 08/14/2023 10:00 AM EDT Office Visit Family [facility] [place] [address] [place] [address] Stas Mora MD [address] [place], [place] [id number] Memory Issues [facility] Comment on above: Memory Issues Start: 06-04-2023 End: 09-03-2023 Ferritin [Mass/volume] in Serum or Plasma [facility] Work Phone: Comment on above: Expected: 06/04/2023 , Expires: 09/03/2023 Start: 06-04-2023 End: 09-03-2023 Iron and Iron binding capacity panel - Serum or Plasma [facility] Work Phone: Comment on above: Expected: 06/04/2023 , Expires: 09/03/2023 Start: 06-01-2023 End: 08-31-2023 CBC panel - Blood by Automated count CBC Lab Routine Paroxysmal atrial fibrillation (HCC) Essential hypertension, benign Expected: 06/01/2023 (Approximate), Expires: 08/31/[address] [facility] Work Phone: Comment on above: Expected: 06/01/2023 (Approximate), Expires: 08/31/2023 Start: 06-01-2023 End: 08-31-2023 Comprehensive metabolic 2000 panel - Serum or Plasma COMP METABOLIC PANEL Lab Routine Paroxysmal atrial fibrillation (HCC) Essential hypertension, benign Hyperlipidemia, unspecified hyperlipidemia type Expected: 06/01/2023 (Approximate), Expires: 08/31/[address] [facility] Work Phone: Comment on above: Expected: 06/01/2023 (Approximate), Expires: 08/31/2023 Start: 06-01-2023 End: 08-31-2023 Lipid 1996 panel - Serum or Plasma LIPID PANEL BASIC Lab Routine Paroxysmal atrial fibrillation (HCC) Essential hypertension, benign Hyperlipidemia, unspecified hyperlipidemia type Expected: 06/01/2023 (Approximate), Expires: 08/31/[address] [facility] Work Phone: Comment on above: Expected: 06/01/2023 (Approximate), Expires: 08/31/2023 Start: 05-13-2023 Covid-19 Vaccine () Covid-19 Vaccine () [facility] Start: 03-23-2023 Advance Directive Discussion Advance Directive Discussion [facility] Start: 03-23-2023 Behavioral Health Screening Behavioral Health Screening [facility] Start: 03-23-2023 [facility] Start: 02-21-2023 Hepatitis B surface antibody level LDL CHOLESTEROL [facility] Start: 02-10-2023 [facility] Start: 12-06-2022 Hepatitis B surface antibody level LDL CHOLESTEROL [facility] Start: 11-21-2022 Covid-19 Vaccine () Covid-19 Vaccine () [facility] Start: 11-21-2022 Influenza vaccination [facility] Start: 09-05-2022 PNEUMOCOCCAL: 65+ (2 - PCV) PNEUMOCOCCAL: 65+ (2 - PCV) [facility] Comment on above: Postponed from 02/21 (Declined at this time) Start: 07-08-2022 Hepatitis B surface antibody level LDL CHOLESTEROL [facility] Start: 04-26-2022 COVID-19 VACCINE (6 - Pfizer series) COVID-19 VACCINE (6 - Pfizer series) [facility] Start: 03-23-2022 ADVANCE DIRECTIVE DISCUSSION ADVANCE DIRECTIVE DISCUSSION [facility] Start: 03-23-2022 DEPRESSION [facility]ESSMENT [facility] Start: 03-13-2022 Hepatitis B surface antibody level LDL CHOLESTEROL [facility] Start: 03-10-2022 End: 05-10-2022 CBC panel - Blood by Automated count CBC Lab Routine TIA (transient ischemic attack) Essential hypertension, benign Atherosclerosis 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, unspecified vessel or lesion type, unspecified whether [place] or transplanted heart Expected: 03/10/2022 (Approximate), Expires: 05/10/[address] [facility] Work Phone: Comment on above: Expected: 03/10/2022 (Approximate), Expires: 05/10/2022 Start: 03-10-2022 End: 05-10-2022 Comprehensive metabolic 2000 panel - Serum or Plasma COMP METABOLIC PANEL Lab Routine TIA (transient ischemic attack) Essential hypertension, benign Atherosclerosis 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, unspecified vessel or lesion type, unspecified whether [place] or transplanted heart Expected: 03/10/2022 (Approximate), Expires: 05/10/[address] [facility] Work Phone: Comment on above: Expected: 03/10/2022 (Approximate), Expires: 05/10/2022 Start: 03-10-2022 End: 05-10-2022 Lipid 1996 panel - Serum or Plasma LIPID PANEL BASIC Lab Routine TIA (transient ischemic attack) Essential hypertension, benign Atherosclerosis 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, unspecified vessel or lesion type, unspecified whether [place] or transplanted heart Expected: 03/10/2022 (Approximate), Expires: 05/10/[address] [facility] Work Phone: Comment on above: Expected: 03/10/2022 (Approximate), Expires: 05/10/2022 Start: 01-03-2022 End: 03-05-2022 Comprehensive metabolic 2000 panel - Serum or Plasma COMP METABOLIC PANEL Lab Routine Atherosclerosis 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, unspecified vessel or lesion type, unspecified whether [place] or transplanted heart Essential hypertension, benign Expected: 01/03/2022 (Approximate), Expires: 03/05/[address] [facility] Work Phone: Comment on above: Expected: 01/03/2022 (Approximate), Expires: 03/05/2022 Start: 01-03-2022 End: 03-05-2022 LIPID PANEL BASIC LIPID PANEL BASIC Lab Routine Atherosclerosis 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, unspecified vessel or lesion type, unspecified whether [place] or transplanted heart Essential hypertension, benign Expected: 01/03/2022 (Approximate), Expires: 03/05/[address] [facility] Work Phone: Comment on above: Expected: 01/03/2022 (Approximate), Expires: 03/05/2022 Start: 12-24-2021 Prothrombin time [facility] [place] [place] Work Phone: Start: 12-23-2021 Prothrombin time [facility] [place] [place] Work Phone: Start: 12-22-2021 Patient discharge [facility] Work Phone: Start: 12-21-2021 Assessment of risk o f venous thromboembolism [facility] Work Phone: Start: 12-21-2021 Cardiac monitoring [facility] Work Phone: Start: 12-21-2021 Catheterization of vein [facility] Work Phone: Start: 12-21-2021 Continuous pulse oximetry [facility] Work Phone: Start: 12-21-2021 Elevation of head of bed [facility] Work Phone: Start: 12-21-2021 Exercises [facility] Work Phone: Start: 12-21-[address] anned interventions [facility] Work Phone: Start: 12-21-2021 Insertion of cathete r into peripheral vein [facility] Work Phone: Start: 12-21-2021 Measuring intake and output [facility] Work Phone: Start: 12-21-2021 Notification of physician [facility] Work Phone: Start: 12-21-2021 Oxygen therapy [facility] Work Phone: Start: 12-21-2021 Providing care accor ding to standard [facility] Work Phone: Start: 12-21-2021 Provision of activit y privileges [facility] Work Phone: Start: 12-21-2021 Referral to occupati onal therapist [facility] Work Phone: Start: 12-21-2021 Referral to service [facility] Work Phone: Start: 12-21-2021 Tobacco use cessatio n education [facility] Work Phone: Start: 12-21-2021 US scan of thyroid Thyroid [facility] Work Phone: Start: 12-21-2021 [facility] Work Phone: Start: 12-21-2021 End: 12-21-2021 Following clinical pathway protocol [facility] Work Phone: Start: 12-21-2021 Verification routine [facility] Work Phone: Start: 12-21-2021 Admission procedure [facility] Work Phone: Start: 12-21-2021 CT of head without contrast STROKE Brain/Head without Cont [facility] Work Phone: Start: 12-21-2021 CT Unspecified body region WO contrast [facility] Work Phone: Start: 12-21-2021 Oxygen therapy [facility] Work Phone: Start: 12-21-2021 End: 12-22-2021 [facility] Work Phone: Start: 11-21-2021 Influenza vaccination INFLUENZA (#1) [facility] Start: 09-24-2021 COVID-19 VACCINE (5 - Booster for Pfizer series) COVID-19 VACCINE (5 - Booster for Pfizer series) [facility] Start: 08-30-2021 End: 10-30-2021 PT panel - Platelet poor plasma by Coagulation assay [facility] Work Phone: Comment on above: Expected: 08/30/2021 , Expires: 10/30/2021 Start: 07-08-2021 End: 09-07-2021 Comprehensive metabolic 2000 panel - Serum or Plasma [facility] Work Phone: Comment on above: Expected: 07/08/2021 (Approximate), Expires: 09/07/2021 Start: 07-08-2021 End: 06-18-2022 LIPID PANEL BASIC [facility] Work Phone: Comment on above: Expected: 07/08/2021 (Approximate), Expires: 09/07/2021 Start: 04-27-2021 COVID-19 VACCINE (4 - Booster for Pfizer series) COVID-19 VACCINE (4 - Booster for Pfizer series) [facility] Start: 03-23-2021 ADVANCE DIRECTIVE DISCUSSION ADVANCE DIRECTIVE DISCUSSION [facility] Start: 03-23-2021 DEPRESSION ASSESSMENT DEPRESSION ASS ESSMENT [facility] Start: 02-21-2009 Pneumococcal Vaccine : 65+ (2 - PCV) Pneumococcal Vaccine: 65+ (2 - PCV) [facility] Start: 02-21-2009 PNEUMOCOCCAL: 65+ (2 - PCV) PNEUMOCOCCAL: 65+ (2 - PCV) [facility] Start: 02-23-2008 Urine microalbumin profile DTAP,TDAP,TD (1 - Tdap) [facility] Start: 1995 RSV Vaccine (1 - 1-d ose 60+ series) RSV Vaccine (1 - 1-dose 60+ series) [facility] Start: 08-12-1985 SHINGRIX VACCINE (1 of 2) VALDES GRIX VACCINE (1 of 2) [facility] Anion gap in Serum o r Plasma [facility] BUN/Creatinine ratio [facility] Calcium [Mass/volume ] in Serum or Plasma [facility] Carbon dioxide, tota l [Moles/volume] in Central venous blood [facility] Creatinine [Mass/vol ume] in Serum or Plasma [facility] Glucose [Mass/volume ] in Serum or Plasma [facility] Hemoglobin.gastroint estin al.lower [Presence] in Stool by Immunoassay FECAL OCCULT BLOOD TEST Lab Routine Abnormal CBC 06/04/2023 2:13 PM EDT [facility] Work Phone: INR in Blood by Coagulation assay [facility] Measurement of renal function [facility] End: 05-27-2025 MR Brain WO contrast MRI BRAIN W QUANT WO IVCON Radiology Routine Cognitive impairment, mild, so stated 1 Occurrences starting 04/27/2024 until 05/27/[address] [facility] Work Phone: Comment on above: 1 Occurrences starti ng 04/27/2024 until 05/27/2025 End: 05-27-2025 MR Unspecified body region 3D post processing MRI 3D BRAIN QUANT Radiology Routine Cognitive impairment, mild, so stated 1 Occurrences starting 04/27/2024 until 05/27/2025 [facility] Comment on above: 1 Occurrences starti ng 04/27/2024 until 05/27/2025 End: 03-17-2024 Mri brain brain stem w/o contrast material MRI BRAIN WO IVCON Radiology STAT Cerebral infarction, unspecified mechanism (HCC) 1 Occurrences starting 02/16/2023 until 03/17/[address] [facility] Work Phone: Comment on above: 1 Occurrences starti ng 02/16/2023 until 03/17/2024 Mri brain brain stem w/o contrast material MRI BRAIN WO IVCON Radiology STAT Cerebral infarction, unspecified mechanism (HCC) 02/17/2023 8:13 AM EST [facility] Work Phone: Patient Education ED Weakness (U ncertain Cause) [facility] Work Phone: Patient referral [facility] Work Phone: Potassium measurement [facility] Prothrombin time [facility] End: 09-13-2022 PT panel - Platelet poor plasma by Coagulation assay PROTHROMBIN TIME/PT Lab Routine USP current use of anticoagulant Encounter for monitoring Coumadin therapy Once per week for 99 Occurrences starting 09/13/2021 until 09/13/[address] [facility] Work Phone: Comment on above: Once per week for 99 Occurrences starting 09/13/2021 until 09/13/2022 PT panel - Platelet poor plasma by Coagulation assay PROTHROMBIN TIME/PT Lab Routine 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 use of anticoagulant Encounter for monitoring Coumadin therapy 09/13/2021 8:42 AM EDT [facility] Work Phone: End: 01-16-2024 PT panel - Platelet poor plasma by Coagulation assay PROTHROMBIN TIME/PT Lab Routine USP current use of anticoagulant Paroxysmal atrial fibrillation (HCC) Once per week for 99 Occurrences starting 01/16/2023 until 01/16/[address] 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 Work Phone: Comment on above: 24 Occurrences start ing 12/24/2023 until 12/23/2024 Serum chloride measurement [facility] Sodium measurement [facility] Urea nitrogen [Mass/volume] in Serum or Plasma [facility] End: 01-25-2023 Us soft tissue head & neck real time imge docm US THYROID/PARATHYROID Radiology Routine Thyroid nodule 1 Occurrences starting 12/26/2021 until 01/25/[address] [facility] Work Phone: Comment on above: 1 Occurrences starti ng 12/26/2021 until 01/25/2023 [facility] Immunizations Immunization Date Immunization Notes Care Provider Fa [facility] 12-03-2023 influenza virus vacc ine, unspecified formulation Stas Mora MD Work Phone: [facility] 01-10-2023 influenza (HD-IIV4) vaccine, age 65+ yr, high dose, quadrivalent, PF (FLUZONE HIGH-DOSE) Corettaubaldo Jalloh [facility] 01-10-2023 influenza virus vacc ine, unspecified formulation Coretta Yeimi [facility] 12-26-2021 influenza, high-dose , quadrivalent vaccine (FLUZONE HIGH DOSE QUADRIVALENT) Stas Mora MD Work Phone: [facility] 12-26-2021 influenza virus vacc ine, unspecified formulation Senia Phillips [facility] 02-27-2021 tetanus toxoid, redu natividad diphtheria toxoid, and acellular pertussis vaccine, adsorbed Stas Mora MD Work Phone: [facility] 02-27-2021 zoster vaccine recombinant Stas Mora MD Work Phone: [facility] 12-25-2020 Covid (Pfizer) Dr. Stas gonzales Work Phone: [facility] 12-10-2020 influenza (HD-IIV4) vaccine, age 65+ yr, high dose, quadrivalent, PF (FLUZONE HIGH-DOSE) Coretta Jalloh [facility] 12-10-2020 influenza, high dose seasonal, preservative-free Stas oMra MD Work Phone: [facility] 09-17-2020 zoster vaccine recombinant Stas Mora MD Work Phone: [facility] 05-09-2020 Covid (Pfizer) Dr. Stas gonzales Work Phone: [facility] 04-18-2020 Covid (Pfizer) Dr. Stas gonzales Work Phone: [facility] 12-24-2016 influenza, high dose seasonal, preservative-free Stas Mora MD Work Phone: [facility] 12-22-2015 Influenza virus vaccine [facility] 12-22-2015 influenza, seasonal, injectable, preservative free Stas Mora MD Work Phone: [facility] Work Phone: 01-30-2014 influenza, high dose seasonal, preservative-free Stsa Mora MD Work Phone: [facility] Work Phone: 01-24-2013 influenza virus vacc ine, unspecified formulation Stas Mora MD Work Phone: [facility] 02-22-2008 pneumococcal polysaccharide vaccine, 23 valent Stas Mora MD Work Phone: [facility] Work Phone: 02-22-2008 tetanus and diphther ia toxoids, adsorbed, preservative free, for adult use (2 Lf of tetanus toxoid and 2 Lf of diphtheria toxoid) Stas Mora MD Work Phone: [facility] Work Phone: Payers Date Payer Category Payer Self-pay [id number] 2022 Unknown [id number] 2016 Medicare [employer] [id number] 2016-Present [phone] [address] [place] [address] HMO [id number] 2016 Medicare [employer] [place] [id number] 2016-Present [phone] [address] [place] [address] O [id number] 2016 [place] Care[place] [id number] 2016 Medicare [id number] 1935 Unknown [id number] 1935 Unknown [id number] Unknown VA AUTH REQUIR ED SEE NOTE [id number] Unknown [place] AUTH REQUIR ED SEE NOTE . [id number] Unknown [id number] Unknown [id number] Unknown [id number] Unknown [id number] Unknown [id number] 2.16.840.1.626975.3.579. 2.462 Unknown [id number] 2.16.840.1.910300.3.579. 2.462 Unknown [id number] 2.16.840.1.089119.3.579. 2.462 Unknown [id number] 2.16.840.1.051611.3.579. 2.462 Unknown [id number] 2.840.1.417054.3.579. 2.462 Unknown [id number] 2.16.840.1.496178.3.579. 2.462 Unknown [id number] 2.16.840.1.024414.3.579. 2.462 Unknown [id number] 2.16.840.1.967772.3.579. 2.462 Unknown [id number] 2.16.840.1.447337.3.579. 2.462 Unknown [id number] 2.16.840.1.361707.3.579. 2.462 Unknown [id number] 2.16.840.1.002348.3.579. 2.462 Unknown [id number] 2.16.840.1.512950.3.579. 2.462 Unknown [id number] 2.16.840.1.430380.3.579. 2.462 Unknown [id number] 2.16.840.1.427743.3.579. 2.462 Unknown [id number] 2.16.840.1.401345.3.579. 2.462 Unknown [id number] 2.16.840.1.332311.3.579. 2.462 Unknown [id number] 2.16.840.1.234398.3.579. 2.462 Unknown [id number] 2.16.840.1.834163.3.579. 2.462 Unknown [id number] 2.16.840.1.746917.3.579. 2.462 Unknown [id number] 2.16.840.1.681262.3.579. 2.462 Unknown [id number] 2.16.840.1.434532.3.579. 2.462 Unknown [id number] 2.16.840.1.096213.3.579. 2.462 Unknown [id number] 2.16.840.1.288494.3.579. 2.462 Unknown [id number] 2.16840.1.158542.3.579. 2.462 Unknown [id number] 2.16.840.1.918376.3.579. 2.462 Social History Date Type Detail Facility Start: 05-04-2017 End: 09-01-2024 Tobacco smoking status NHIS Ex-smoker [facility] Start: 02-15-2021 End: 07-28-2024 Alcohol intake Current non-drinker of alcohol (finding) [facility] Start: 08-26-2020 End: 08-29-2021 History SDOH Alcohol Frequency 2 [facility] Start: 08-26-2020 End: 08-29-2021 History SDOH Alcohol Std Drinks 1 [facility] Start: 08-26-2020 End: 08-29-2021 History SDOH Social Connections Catholic 3 [facility] Start: 08-26-2020 End: 08-29-2021 History SDOH Social Connections Living 5 [facility] Start: 08-26-2020 History SDOH Physical Activity MPS 6 [facility] Start: 08-26-2020 Education 12 [facility] Start: 1935 Sex Assigned At Male [facility] Start: 02-11-2020 End: 12-26-2021 Exposure to SARS-CoV-2 (event) Not sure [facility] History of tobacco use Current smoker [facility] Start: 05-04-2017 End: 12-26-2021 Tobacco use and exposure Smokeless tobacco non-user [facility] Start: 12-21-2021 End: 02-10-2023 Tobacco smoking status NHIS Unknown if ever smoked [facility] Start: 12-22-2021 Non-smoker [facility] Start: 12-26-2021 Tobacco Comment 30 yaers ago [facility] Start: 02-28-2020 End: 08-29-2021 History of Social function [facility] Start: 02-28-2020 End: 08-29-2021 Social connection and isolation panel [facility] Do you belong to any clubs or organizations such as tenriism groups, unions, frashopp or athletic groups, or school groups? No [facility] Are you now , , , , never or living with a partner? [facility] How often to you hav e a drink containing alcohol? Monthly or less [facility] How many standard dr inks containing alcohol do you have on a typical day? 1 or 2 [facility] How often do you hav e 6 or more drinks on 1 occasion? Never [facility] How hard is it for y ou to pay for the very basics like food, housing, medical care, and heating Not hard at all [facility] Do you feel stress - tense, restless, nervous, or anxious, or unable to sleep at night because your mind is troubled all the time - these days [OSQ] Not at all [facility] (I/We) worried velvte er (my/our) food would run out before (I/we) got money to buy more. Never true [facility] Start: 08-26-2020 Gender identity Identifies as male gender (finding) [facility] Start: 08-26-2020 Sexual orientation Heterosexual (finding) [facility] Sex Assigned At [facility] Are you now , , , , never or living with a partner? [facility] How often to you hav e a drink containing alcohol? 2-4 times a month [facility] Goals Date Patient Goal Desired Activity /State Functional Status Date Assessment Result Facility 09-06-2024 Functional status Ambulates [facility] Work Phone: 07-26-2024 Total score [AUDIT-C] 1 07/27/19 6:26 PM EDT User, [email or web address] [facility] 07-26-2024 Within the last year , have you been humiliated or emotionally abused in other ways by your partner or ex-partner? No 07/26/2024 6:26 PM EDT User, Mychart No [facility] 07-26-2024 Within the last year , have you been afraid of your partner or ex-partner? No 07/26/2024 6:26 PM EDT [email or web address] 07-26-2024 Within the last year , have you been raped or forced to have any kind of sexual activity by your partner or ex-partner? No 07/26/2024 6:26 PM EDT User, [email or web address] No [facility] 07-26-2024 Within the last year , have you been kicked, hit, slapped, or otherwise physically hurt by your partner or ex-partner? No 07/26/2024 6:26 PM EDT User, [email or web address] No [facility] 07-26-2024 How often to you hav e a drink containing alcohol? Monthly or less 07/26/2024 6:26 PM EDT User, Mychart Monthly or less [facility] 07-26-[address] inks containing alcohol do you have on a typical day? 1 or 2 07/26/2024 6:26 PM EDT User, Mychart 1 or 2 [facility] 07-26-2024 How often do you hav e 6 or more drinks on 1 occasion? Never 07/26/2024 6:26 PM EDT User, [email or web address] Never [facility] 11-17-2022 Functional Status Up ad tara Samira Ho glenna [facility] 11-17-2022 Functional Status Identified as high risk, Fall ID band on, Room located near nursing station [facility] 12-22-2021 Functional status Ambulates;Chair [facility] Work Phone: 07-02-2016 Are you deaf, or do you have serious difficulty hearing No 07/02/2016 2:52 PM EDT Anita Zhang, DO No [facility] Work Phone: 07-02-2016 Are you blind, or do you have serious difficulty seeing, even when wearing glasses No 07/02/2016 2:52 PM EDT Anita Zhang, DO No [facility] 07-02-2016 Do you have serious difficulty walking or climbing stairs No 07/02/2016 2:52 PM EDT Anita Zhang, DO No [facility] 07-02-2016 Do you have difficul ty dressing or bathing No 07/02/2016 2:52 PM EDT Anita Zhang, DO No [facility] 07-02-2016 Because of a physica l, mental, or emotional condition, do you have difficulty doing errands alone such as visiting a physician's office or shopping No 07/02/2016 2:52 PM EDT Anita Zhang, DO No [facility] Mental Status Date Assessment Result Facility 09-06-2024 Cognitive function Voice/Name [facility] Work Phone: 09-05-2024 Cognitive function Appropriate;Cooperativ e [facility] Work Phone: 02-10-2023 Cognitive function Level Of Cons ciousness Awake;Alert;Appropriate;Fol lows Commands [facility] Work Phone: 11-17-2022 Mental Status Orientation Oriented x 4 [facility] 11-17-2022 Mental Status [facility] 12-22-2021 Cognitive function Voice/Name [facility] Work Phone: 12-21-2021 Cognitive function Voice/Name [facility] Work Phone: 07-02-2016 Because of a physica l, mental, or emotional condition, do you have serious difficulty concentrating, remembering, or making decisions No 07/02/2016 2:52 PM EDT Anita Zhang, No [facility] Clinical Notes 03-12-2020 to 09-21-2024 [...] in there for two weeks. Please advise [facility] 09-21-2024 Miscellaneous Notes Formattin g of this note might be different from the original. [facility]. Maria Guadalupe states that he has been in there for two weeks. Please advise documented in this encounter [facility] 09-06-2024 Consult note [facility] 09-06-2024 Consult note Note Date/Time September 06, 2024 4:37pm [facility] Medical Records Department [address] [place] [id number] Counseling Note - Pharmacy 09/06/24 1143 MR#: [id number] Acct: [id number] Name: ROBY FLORES Rep #:[id number] : 1935 89 From: Isabelle Summers PCP: Dr. Stas Mora MD Status:AD M IN Location: [place] [address] Pharmacy MD Med Reconciliation Pharmacy Service has performed discharge [...] Signature (if applicable): Date CC: ~ Signed [facility] Work Phone: 1(127) 309-661206-17-2025 Discharge summary Author Navid Dominguez [facility] Note Date/Time September 06, 2024 11:[address] [place] [address] [facility] System Medical Records Department [address] [place] [address] Discharge Summary 09/06/24 1109 MR#: [id number] Acct: [id number] Name: ROBY FLORES Rep #:[id number] : 1935 89 From: Navid Trejo PCP: Dr. Stas Mora MD Status:AD M IN Location: [place] [address] Providers Date of Admission: 09/02/24 Date of [...] The daughter is the healthcare power of deputy attorney general. #History of dementia: On rivastigmine #Dyslipidemia: On [...] (Auto) 66.8, Lymph % (Auto) 16.4 L, [place] % (Auto) 9.1, Eos % (Auto) 6.3 [...] in before D/C Order can be placed): Senior Living Facility Charges/Coding Visit Charges Inpatient E&M: 25670 Disch Hosp >30min 09/06/24 1114 <Electronically signed by Navid Dominguez MD> Cosigner Signature (if applicable): CC: Dr. Sats Mora MD; Dr. Navid Dominguez MD~ Signed [facility] Work Phone: 1(934) 927-908506-17-2025 Discharge summary Author Navid Dominguez [facility] Note Date/Time September 06, 2024 11:0 9am [facility] Medical Records Department [address] [place] [address] Transfer to [facility] MR#: [id number] Acct: [id number] Name: ROBY FLORES Rep #:[id number] : 1935 89 From: Navid Trejo PCP: Dr. Stas Mora MD Status:AD M IN Certification of patient admission REQUIRED AT TIME OF ADMISSION. I CERTIFY THAT POST-HOSPITAL F SERVICES ARE REQUIRED TO BE GIVEN ON AN IN-PATIENT BASIS BECAUSE OF THE ABOVE NAMED PATIENT'S NEED FOR SKILLED NURSING CARE ON A CONTINUING BASIS FOR THE CONDITION(S) FOR WHICH HE/SHE WAS RECEIVING IN-PATIENT HOSPITAL SERVICES PRIOR TO HIS/HER TRANSFER TO THE [facility]. 09/06/24 1109<Electronically signed by Navid Dominguez [...] [facility] the [facility] # Fever * Patient developed [...] The daughter is the healthcare power of deputy attorney general. #History of dementia: On rivastigmine #Dyslipidemia: On [...] liberalized regular diet with consistency/texture as per PROJECT CONTROLS SPECIALIST. Will continue 120mL ensure plus HP 4 [...] in before D/C Order can be placed): Senior Living Facility 09/06/24 1109 <Electronically signed by Navid Dominguez MD> Cosigner Signature (if applicable): CC: Dr. Stas Mora MD; Dr. Kathy Wells MD ~ [facility] Work Phone: 1(155) 921-491506-17-2025 Discharge summary [facility] Medical Records Department [address] [place] [address] Discharge Summary 09/06/24 1109 MR#: [id number] Acct: [id number] Name: ROBY FLORES Radha Rep #:[id number] : 1935 89 From: Navid Trejo PCP: Dr. Stas Mora MD Status:AD M IN Location[place] [facility] FG964-0 Providers Date of Admission: 09/02/24 Date of [...] explained to the patient and his [facility] 09/06: INR 2.4. Hold warfarin [...] The daughter is the healthcare power of deputy attorney general. #History of dementia: On rivastigmine #Dyslipidemia: On [...] (Auto) 66.8, Lymph % (Auto) 16.4 L, [place] % (Auto) 9.1, Eos % (Auto) 6.3 [...] in before D/C Order can be placed): Senior Living Facility Charges/Coding Visit Charges Inpatient E&M: 83203 Disch Hosp >30min 09/06/24 1114 Cosigner Signature (if applicable): CC: Dr. Stas Mora MD; Dr. Navid Dominguez MD~ Signed [facility]06-17-2025 Discharge summary [facility] Medical Records Department [address] [place] [address] Transfer to [facility] MR#: [id number] Acct: [id number] Name: ROBY FLORES Rep #:[id number] : 1935 89 From: Navid Trejo PCP: Dr. Stas Mora MD Status:AD M IN Certification of patient admission REQUIRED AT TIME OF ADMISSION. I CERTIFY THAT POST-HOSPITAL ECF SERVICES ARE REQUIRED TO BE GIVEN ON AN IN-PATIENT BASIS BECAUSE OF THE ABOVE NAMED PATIENT'S NEED FOR SKILLED NURSING CARE ON A CONTINUING BASIS FOR THE [...] explained to the patient and his [facility] # Fever * Patient developed [...] The daughter is the healthcare power of deputy attorney general. #History of dementia: On rivastigmine #Dyslipidemia: On [...] liberalized regular diet with consistency/texture as per PROJECT CONTROLS SPECIALIST. Will continue 120mL ensure plus HP 4 [...] in before D/C Order can be placed): Senior Living Facility 09/06/24 1109 Cosigner Signature (if applicable): CC: Dr. Stas Mora MD; Dr. Kathy Wells MD ~ [facility]06-17-2025 [facility] Medical Records Department [address] [place] [address] Discharge Summary 09/06/24 110 MR#: [id number] Acct: [id number] Name: ROBY FLORES Rep #: [id number] : 1935 89 From: Navid Dominguez MD PCP: Dr. Stas Mora MD Status:ADM IN Location: [place] [address] Providers Date of Admission: 09/02/24 Date of [...] The daughter is the healthcare power of deputy attorney general. #History of dementia: On rivastigmine #Dyslipidemia: On [...] / Lab / Microbiol (more content not included)...[facility] 09-05-2024 Progress note Author Navid Dominguez [facility] Note Date/Time September 05, 2024 4:15 pm [facility] Medical Records Department [address] [place] [address] Progress Note - Hospitalist 09/05/24 1608 MR#: [id number] Acct: [id number] Name: ROBY FLORES Rep #:[id number] : 1935 89 From: Navid Trejo PCP: Dr. Stas Mora MD Status:AD M IN Location: [place] US899-9 Reason for Visit Reason for Visit: Diagnoses [...] Clarity Clear, Urine pH 7.0, Ur Specific [place] 1.005, Urine Protein 15 H, Urine Glucose [...] 77.2 H, Lymph % (Auto) 9.8 L, [place] % (Auto) 7.9, Eos % (Auto) 4.0, [...] The daughter is the healthcare power of deputy attorney general. #History of dementia: On rivastigmine #Dyslipidemia: On statin #Benign essential hypertension: On lisinopril. DVT prophylaxis: * Resume Coumadin today. INR 1.8. Daughter still thinking about that she wants him to continue otherwise. Code status: DNRCCA no intubation * Disposition: Awaiting placement. PT OT on board. Charges/Coding Visit Charges Inpatient E&M: 39323 Subs Hosp L2 09/05/24 1615 <Electronically signed by Navid Dominguez MD> Cosigner Signature (if applicable): CC: ~ Signed [facility] Work Phone: 1(785) 829-316106-16-2025 Progress note [facility] Medical Records Department [address] [place] [address] Progress Note - Hospitalist 09/05/24 1608 MR#: [id number] Acct: [id number] Name: ROBY FLORES Rep #:[id number] : 1935 89 From: Navid Trejo PCP: Dr. Stas Mora MD Status:AD M IN Location: [facility] TO677-1 Reason for Visit Reason for Visit: Diagnoses [...] Clarity Clear, Urine pH 7.0, Ur Specific [place] 1.005, Urine Protein 15 H, Urine Glucose [...] 77.2 H, Lymph % (Auto) 9.8 L, [place] % (Auto) 7.9, Eos % (Auto) 4.0, [...] explained to the patient and his [facility] # Fever * Patient developed [...] The daughter is the healthcare power of deputy attorney general. #History of dementia: On rivastigmine #Dyslipidemia: On statin #Benign essential hypertension: On lisinopril. DVT prophylaxis: * Resume Coumadin today. INR 1.8. Daughter still thinking about that she wants him to continue otherwise. Code status: DNRCCA no intubation * Disposition: Awaiting placement. PT OT on board. Charges/Coding Visit Charges Inpatient E&M: 51337 [facility] Hosp L2 09/05/24 1615 Cosigner Signature (if applicable): CC: ~ Signed [facility]06-15-2025 Progress note Author Kathy Wells [facility] Note Date/Time September 04, 2024 3:37 pm [facility] Medical Records Department [address] [place] [address] Progress Note 09/04/24 1412 MR#: [id number] Acct: [id number] Name: ROBY FLORES Radha Rep #:[id number] : 1935 89 From: Kathy Wells MD PCP: Dr. Stas Mora MD Status:AD M IN Location: [place] RR509-4 Subjective Subjective Patient seen and examined. He [...] 78.0 H, Lymph % (Auto) 7.8 L, [place] % (Auto) 7.7, Eos % (Auto) 5.3 [...] The daughter is the healthcare power of deputy attorney general. * In light of patient's confusion in [...] on board. Charges/Coding Visit Charges Inpatient E&M: 53799 Subs Hosp L2 09/04/24 2097 <Electronically signed by Kathy Wells MD> Kathy Wells MD Cosigner Signature (if applicable): CC: ~ Signed [facility] Work Phone: 1(963) 593-960106-15-2025 Progress note [facility] Medical Records Department [address] [place] [address] Progress Note 09/04/24 1412 MR#: [id number] Acct: [id number] Name: ROBY FLORES Rep #:[id number] : 1935 89 From: Kathy Wells MD PCP: Dr. Stas Mora MD Status:AD M IN Location: [place] JK248-7 Subjective Subjective Patient seen and examined. He [...] 78.0 H, Lymph % (Auto) 7.8 L, [place] % (Auto) 7.7, Eos % (Auto) 5.3 [...] The daughter is the healthcare power of deputy attorney general. * In light of patient's confusion in [...] on board. Charges/Coding Visit Charges Inpatient E&M: 01669 Subs Hosp L2 09/04/24 1537 Kathy Wells MD Cosigner Signature (if applicable): CC: ~ Signed [facility]06-14-2025 Progress note Author Kathy Wells [facility] Note Date/Time September 03, 2024 6:29 pm [facility] Medical Records Department [address] [place] [address] Progress Note 09/03/24 1135 MR#: [id number] Acct: [id number] Name: ROBY FLORES Rep #:[id number] : 1935 89 From: Kathy Wells MD PCP: Dr. Stas Mora MD Status:AD M IN Location: [place] [address] Subjective Subjective Patient seen and examined. He [...] 83.4 H, Lymph % (Auto) 6.7 L, [place] % (Auto) 6.0, Eos % (Auto) 2.8, [...] The daughter is the healthcare power of deputy attorney general. * In light of patient's confusion in [...] on board. Charges/Coding Visit Charges Inpatient E&M: 68186 Subs Hosp L2 09/03/249 <Electronically signed by Kathy Wells MD> Kathy Wells MD Cosigner Signature (if applicable): CC: ~ Signed [facility] Work Phone: 1(281) 396-939006-14-2025 Progress note [facility] Medical Records Department [address] [place] [address] Progress Note 09/03/24 1135 MR#: [id number] Acct: [id number] Name: ROBY FLORES Rep #:[id number] : 1935 89 From: Kathy Wells MD PCP: Dr. Stas Mora MD Status:AD M IN Location: [place] SD988-4 Subjective Subjective Patient seen and examined. He [...] 83.4 H, Lymph % (Auto) 6.7 L, [place] % (Auto) 6.0, Eos % (Auto) 2.8, [...] The daughter is the healthcare power of deputy attorney general. * In light of patient's confusion in [...] on board. Charges/Coding Visit Charges Inpatient E&M: 07076 Subs Hosp L2 09/03/24 4450 Kathy Wells MD Cosigner Signature (if applicable): CC: ~ Signed [facility]06-14-2025 Consult note Author Spike De La Cruz [facility] Note Date/Time September 03, 2024 3:49 pm [facility] Medical Records Department [address] [place] [address] Pharmacokinetic/Renal -Consult 09/03/24 1548 MR#: [id number] Acct: [id number] Name: ROBY FLORES Rep #:[id number] : 1935 89 From: Spike Maynard [facility] PCP: Dr. Stas Mora MD Status:AD M IN Location: [facility] YF373-6 Consult Antibiotic Management Pharmacy has been consulted [...] Labs: Trough: Vancomycin (09/04/24 at 2130) 09/03/24 1359 <Electronically signed by Spike Angelo [facility]> Date _ Spike De La Cruz [facility] Cosigner Signature (if applicable): Date CC: ~ Signed [facility] Work Phone: 1(196) 174-774206-14-2025 Consult note [facility] Medical Records Department [address] [place] [address] Pharmacokinetic/Renal -Consult 09/03/24 1548 MR#: [id number] Acct: [id number] Name: ROBY FLORES Rep #:[id number] : 1935 89 From: Spike Maynard [facility] PCP: Dr. Stas Mora MD Status:AD M IN Location: [facility] BM704-2 Consult Antibiotic Management Pharmacy has been consulted [...] Trough: Vancomycin (09/04/24 at 2130) 09/03/24 1549 [facility]> Date _ Spike De La Cruz [facility] Cosigner Signature (if applicable): Date CC: ~ Signed [facility]06-13-2025 Progress note Author Kathy [facility] Note Date/Time September 02, 2024 6:45 pm [facility] Medical Records Department [address] [place] [address] Progress Note 09/02/24 1404 MR#: [id number] Acct: [id number] Name: ROBY FLORES Rep #:[id number] : 1935 89 From: Kathy Wells MD PCP: Dr. Stas Mora MD Status:AD M IN Location: [place] VK852-7 Subjective Subjective Patient seen and examined. He [...] (Auto) 87.9 H, Lymph %(Auto) 3.8 L, [place] % (Auto) 4.8, Eos % (Auto) 2.2, [...] The daughter is the healthcare power of deputy attorney general. * In light of patient's confusion in [...] intubation * Charges/Coding Visit Charges Inpatient E&M: 76377 Subs Hosp L2 09/02/24 1848 <Electronically signed by Kathy Wells MD> Kathy Wells MD Cosigner Signature (if applicable): CC: ~ Signed [facility] Work Phone: 1(981) 522-182006-13-2025 Progress note [facility] Medical Records Department [address] [place] [address] Progress Note 09/02/24 1404 MR#: [id number] Acct: [id number] Name: ROBY FLORES Rep #:[id number] : 1935 89 From: Kathy Wells MD PCP: Dr. Stas Mora MD Status:AD M IN Location: [place] EP092-6 Subjective Subjective Patient seen and examined. He [...] (Auto) 87.9 H, Lymph %(Auto) 3.8 L, [place] % (Auto) 4.8, Eos % (Auto) 2.2, [...] The daughter is the healthcare power of deputy attorney general. * In light of patient's confusion in [...] intubation * Charges/Coding Visit Charges Inpatient E&M: 41401 Subs Hosp L2 09/02/24 0505 Kathy Wells MD Cosigner Signature (if applicable): CC: ~ Signed [facility]06-13-2025 Evaluation note* Diagnosis Onset Date Resolution Status Admit Date Adult failure to thrive acute J formerly [facility] 2024 12:49pm Chronic anticoagulation acute J formerly [facility] 2024 12:49pm Contusion of hip acute August 12:49pm Fall acute September 02 12:49pm History of atrial fibrillation acute September 02, 2024 12:49pm History of dementia acute September 02, 2024 12:49pm History of TIAs acute August 12:49pm Unable to ambulate acute August 212024 12:49pm [facility] Work Phone: 1(292) 438-272106-13-2025 Evaluation note* Diagnosis Onset Date Resolution Status Admit Date Chronic anticoagulation acute J formerly [facility] 2024 12:49pm Contusion of hip acute August 12:49pm Fall acute September 02 12:49pm History of atrial fibrillation acute September 02, 2024 12:49pm History of TIAs acute August 12:49pm Unable to ambulate acute August 212024 12:49pm Adult failure to thrive inactive J 2024 12:49pm History of dementia inactive September 02, 2024 12:49pm [facility] Work Phone: 1(168) 361-271106-12-2025 Consult note Author Zachary Lubin [facility] Note Date/Time September 01, 2024 9:15 pm [facility] Medical Records Department [address] [place] [address] Pharmacokinetic/Renal -Consult 09/01/242113 MR#: [id number] Acct: [id number] Name: ROBY FLORES Rep #:[id number] : 1935 89 From: Zachary Serrano od PCP: Dr. Stas Mora MD Status:AD M GERMAN Y Location: [place] [address] Consult Antibiotic Management Pharmacy has been consulted [...] <Electronically signed by Zachary burton> Date _ Zachayr Lubin Cosigner Signature (if applicable): Date _ CC: ~ Signed [facility] Work Phone: 1(346) 280-713906-12-2025 Progress note Author Marta Black [facility] Note Date/Time September 01, 2024 7:55 pm [facility] Medical Records Department [address] [place] [address] Progress Note - Hospitalist 09/01/241952 MR#: [id number] Acct: [id number] Name: ROBY FLORES Rep #:[id number] : 1935 89 From: Marta Black DO PCP: Dr. Stas Mora MD Status:AD M [facility] Location: [place] [address] Hospitalist Note Called regarding Mr. Flores having [...] Cosigner Signature (if applicable): CC: ~ Signed [facility] Work Phone: 1(590) 308-606306-12-2025 Consult note [facility] Medical Records Department [address] [place] [address] Pharmacokinetic/Renal -Consult 09/01/242113 MR#: [id number] Acct: [id number] Name: ROBY FLORES Rep #:[id number] : 1935 89 From: Zachary Serrano od PCP: Dr. Stas Mora MD Status:ELIAS Saab Location: [place] [address] Consult Antibiotic Management Pharmacy has been consulted [...] 0830 09/01/24 2115 lood> Date _ Zachary uJárezigner Signature (if applicable): Date _ CC: ~ Signed [facility]06-12-2025 History and physical note Author Kathy [facility] Note Date/Time September 01, 2024 6:04 pm [facility] Medical Records Department [address] [place] [address] H&P Exam - Hospitalist 09/01/24 1018 MR#: [id number] Acct: [id number] Name: ROBY FLORES Rep #:[id number] : 1935 89 From: Kathy Wells MD PCP: Dr. Stas Mora MD Status:AD M [facility] Location: [facility] [place] UV060-7 HPI - General General Date of Admission: [...] in the ED were BP of 180/89, AL of 87, RR of 18 and temp [...] debility and weakness due to mechanical fall. [facility] Medical History Chronic anticoagulation TIA (transient ischemic [...] 87.5 H, Lymph % (Auto) 4.8 L, [place] % (Auto) 5.7, Eos % (Auto) 1.2, [...] Clarity Clear, Urine pH 8.0, Ur Specific [place] 1.010, Urine Protein 15 H, Urine Glucose [...] No fracture or dislocation present. Reading Location: [facility]-[address] 09/01/24 09:05 IMPRESSION: Cerebral atrophy. Mucosal thickening of the ethmoid sinuses as well as opacification of the left maxillary sinus. Reading Location: [facility]1 Chest X-Ray 09/01/24 09:25 IMPRESSION: No acute abnormality is seen. Reading Location: [facility]-1 Assessment & Plan Assessment/Plan (1) Adult [...] The daughter is the healthcare power of deputy attorney general. * In light of patient's confusion in [...] be DNR CCA no intubation. * Total xlwh-bf-ufel time 16 minutes. Charges/Coding Visit Charges Inpatient E&M: 05138 Init Hosp L3 Procedures Hospitalists Procedures: 96166 Advncd Care Plan 30 Min 09/01/24 1804 <Electronically signed by Kathy Wells MD> Cosigner Signature (if applicable): CC: Dr. Stas Mora MD; Dr. Kathy Wells MD~ Signed [facility] Work Phone: [phone]) 714-341206-12-2025 Progress note [facility] Medical Records Department [address] [place] [address] Progress Note - Hospitalist 09/01/241952 MR#: [id number] Acct: [id number] Name: ROBY FLORES E Rep #:[id number] : 1935 89 From: Marta Black DO PCP: Dr. Stas Mora MD Status:AD M [facility] Location: [place] [address] Hospitalist Note Called regarding Mr. Flores having [...] Cosigner Signature (if applicable): CC: ~ Signed [facility]06-12-2025 History and physical note [facility] Medical Records Department [address] [place] [address] H&P Exam - Hospitalist 09/01/24 1018 MR#: [id number] Acct: [id number] Name: ROBY FLORES Rep #:[id number] : 1935 89 From: Kathy Wells MD PCP: Dr. Stas Mora MD Status:AD M GERMAN Location: MS3 [id number] HPI - General General Date of Admission: [...] in the ED were BP of 180/89, AL of 87, RR of 18 and temp [...] debility and weakness due to mechanical fall. [facility] Medical History Chronic anticoagulation TIA (transient ischemic [...] 87.5 H, Lymph % (Auto) 4.8 L, [place] % (Auto) 5.7, Eos % (Auto) 1.2, [...] Clarity Clear, Urine pH 8.0, Ur Specific [place] 1.010, Urine Protein 15 H, Urine Glucose [...] No fracture or dislocation present. Reading Location: [facility]--[address] 09/01/24 09:05 IMPRESSION: Cerebral atrophy. Mucosal thickening of the ethmoid sinuses as well as opacification of the left maxillary sinus. Reading Location: [facility]--1 Chest X-Ray 09/01/24 09:25 IMPRESSION: No acute abnormality is seen. Reading Location: [facility]--1 Assessment & Plan Assessment/Plan (1) Adult failure [...] The daughter is the healthcare power of deputy attorney general. * In light of patient's confusion in [...] be DNR CCA no intubation. * Total nscn-pr-uvky time 16 minutes. Charges/Coding Visit Charges Inpatient E&M: 50688 Init Hosp L3 Procedures Hospitalists Procedures: 30198 Advncd Care Plan 30 Min 09/01/24 1804 Cosigner Signature (if applicable): CC: Dr. Stas Mora MD; Dr. Kathy Wells MD~ Signed [facility]06-12-2025 Telephone encounter Note* Telephone Encounter - Haydee Oliveros LPN - 09/01/2024 2:49 PM EDT [employer] message sent [facility]06-12-2025 Miscellaneous Notes* Telephone Encounter - [...] affordable alvarado using Good Rx coupons. At [facility] (his current pharmacy), he can get a 1 mo supply for ~$30. If he switches the prescription to [facility], he can get a 1 mo supply for ~$20. See coupons below. Rivastigmine patches are also available via GoodRx. It appears the cheapest option is through [facility], in which he can get 30 patches for $52. Coupon also below. Sending to PCP to review and provide patient with coupon card information. Russell Aguayo PharmD, [facility] Primary Care Clinical Pharmacist Memantine coupon at [facility] Memantine coupon at [facility] Rivastigmine patches coupon at [facility] documented in [facility]06[facility] Telephone encounter Note * Telephone Encounter - Luciana Cisneros MD - 09/01/2024 1:26 PM EDT Thanks Russell, Staff please let patient know what the pharmacist as opined on. RegardsLuciana MD [facility]06-12-2025 Discharge summary Author Inderjit Gillespie [facility] Note Date/Time September 01, 2024 10:2 5am [facility] Medical Records Department [address] [place] [address] Emergency Department Summary 09/01/24 MR#: [id number] Acct: [id number] Name: ROBY FLORES Rep #:[id number] : [...] shoulders elbows and wrist. 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 Neurologically he is awake alert. Answering [...] 87.5 H Lymph % (Auto) 4.8 L [place] % (Auto) 5.7 Eos % (Auto) 1.2 [...] Clarity Clear Urine pH 8.0 Ur Specific [place] 1.010 Urine Protein 15 H Urine Glucose [...] No fracture or dislocation present. Reading Location: [facility]--[address] 09/01/24 09:05 IMPRESSION: Cerebral atrophy. Mucosal thickening of the ethmoid sinuses as well as opacification of the left maxillary sinus. Reading Location: [facility]--1 Chest X-Ray 09/01/24 09:25 IMPRESSION: No acute abnormality is seen. Reading Location: [facility]--1 Chest x-ray, 2 views, AP and lateral, [...] failure to thrive Disposition Disposition: Acute Care [facility] What to do if you have Problems For any increased pain, shortness of breath, bleeding, nausea or vomiting, chestpain, or any unexpected problems, contact your Primary Care Provider. Call [facility] ([phone]) or report to the closest Emergency Room. Call 911 if necessary. 09/01/24 1025 <Electronically signed by Inderjit Gillespie MD> Cosigner Signature (if applicable): CC: Dr. Stas Mora MD ~ Signed [facility] Work Phone: 1(138) 442-388006-12-2025 Discharge summary [facility] Medical Records Department [address] [place] [address] Emergency Department Summary 09/01/24 MR#: [id number] Acct: [id number] Name: ROBY FLORES Rep #:[id number] : [...] Prior similar symptoms: No Recent Illness/Hospitalization: No [facility] Medical History Chronic anticoagulation TIA (transient ischemic [...] shoulders elbows and wrist. 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 Neurologically he is awake alert. Answering [...] 87.5 H Lymph % (Auto) 4.8 L [place] % (Auto) 5.7 Eos % (Auto) 1.2 [...] Clarity Clear Urine pH 8.0 Ur Specific [place] 1.010 Urine Protein 15 H Urine Glucose [...] No fracture or dislocation present. Reading Location: [facility]- Brain CT 09/01/24 09:05 IMPRESSION: Cerebral atrophy. Mucosal thickening of the ethmoid sinuses as well as opacification of the left maxillary sinus. Reading Location: [facility]-1 Chest X-Ray 09/01/24 09:25 IMPRESSION: No acute abnormality is seen. Reading Location: [facility]-1 Chest x-ray, 2 views, AP and [...] to thrive Disposition Disposition: Acute Care [facility] What to do if you have Problems For any increased pain, shortness of breath, bleeding, nausea or vomiting, chestpain, or any unexpected problems, contact your Primary Care Provider. Call [facility] ([phone]) or report tothe closest Emergency Room. Call 911 if necessary. 09/01/24 1025 Cosigner Signature (if applicable): CC: Dr. Stas Mora MD ~ Signed [facility]06-12-2025 Telephone encounter Note* Telephone Encounter - [...] affordable alvarado using Good Rx coupons. At [facility] (his current pharmacy), he can get a 1 mo supply for ~$30. If he switches the prescription to [facility], he can get a 1 mo supply for ~$20. See coupons below. Rivastigmine patches are also available via GoodRx. It appears the cheapest option is through [facility], in which he can get 30 patches for $52. Coupon also below. Sending to PCP to review and provide patient with coupon card information. Russell Aguayo PharmD, [facility] Primary Care Clinical Pharmacist Memantine coupon at [facility] Memantine coupon at [facility] Rivastigmine patches coupon at [facility] Work Phone: 1(652) 488-201106-12-2025 Radiology Diagnostic study note [facility] Imaging Services [address] [place] [address] Brain/Head without Contrast MR#: [id number] Acct: [id number] Name: ROBY FLORES Rep #: [id number] : 1935 M 89 From: Laith Chavez MD PCP: Dr. Stas Mora MD Status: RE G ER Study:Brain/Head without Contrast Date of Exa m: 09/01/24 Exam# [id number] Ordering Dr: Earlene Gillespie MD PROCEDURE: BRAIN/HEAD [...] of the left maxillary sinus. Reading Location: [place] [address] CC: Dr. Inderjit Gillespie MD; Dr. Stas Mora MD ~ Utilization Reviewer: Signed [facility]06-12-2025 Radiology Diagnostic study note [facility] Imaging Services [address] [place] [id number] Chest 1 View (Portable) MR#: [id number] Acct: [id number] Name: ROBY FLORES Rep #: [id number] : 1935 M 89 From: Laith Chavez MD PCP: Dr. Stas Mora MD Status: [facility] ER Study:Chest 1 View (Portable) Date of Exam: 09/01/24 Exam# [id number] Ordering Dr: Earlene Gillespie MD PROCEDURE: CHEST [...] No acute abnormality is seen. Reading Location: [place] [address] CC: Dr. Inderjit Gillespie MD; Dr. Stas Mora MD ~ Utilization Reviewer: Signed [facility]06-12-2025 Radiology Diagnostic study note [facility] Imaging Services [address] [place] [address] Hips B/L min 2 views w/ Pelvis MR#: [id number] Acct: [id number] Name: ROBY FLORES Rep #: [id number] : 1935 M 89 From: Laith Chavez MD PCP: Dr. Stas Mora MD Status: [facility] ER Study:Hips B/L min 2 views w/ Pelvis Date of Exam: 09/01/24 Exam# [id number] Ordering Dr: Earlene Gillespie MD PROCEDURE: HIPS [...] No fracture or dislocation present. Reading Location: [place] [address] CC: Dr. Inderjit Gillespie MD; Dr. Stas Mora MD ~ Utilization Reviewer: Signed [facility]06-11-2025 NoteHNO ID: [id number] Author: LUCIANA CISNEROS MD Service: ? Author [...] and believing his brother, who lives in [place], was present. Jaquan also thought he had a car in [facility] and wanted to retrieve it, despite not having a yard driver's license or a car there. Additionally, [...] excuse any unintended typographical errors. Recording using [employer] software for draft documentation of the visit was discussed with the patient/authorized bilingual call center representative; all questions welcomed and answered. Patient/authorized bilingual call center representative agreed to proceed Luciana Cisneros [facility]06-11-2025 History of Present illness Narrative* Luciana [...] and believing his brother, who lives in [place], was present. Jaquan also thought he had a car in [facility] and wanted to retrieve it, despite not having a yard driver's license or a car there. Additionally, [...] hour patch memantine (NAMENDA) 10 mg tablet [facility] Maintenance Medicare Advantage Annual Wellness Visit [...] any unintended typographical errors. Recording using ambient [employer] software for draft documentation of the visit was discussed with the patient/authorized bilingual call center representative; all questions welcomed and answered. Patient/authorized bilingual call center representative agreed to proceed Luciana Cisneros MD documented in [facility] encounterDet[facility]06[facility] Telephone encounter Note * Telephone Encounter - Coretta Jalloh [facility] - 08/31/2024 2:09 PM EDT [facility] Ambulatory Pharmacy Anticoagulation Clinic Anticoagulation Episode Summary Anticoagulation Care Providers Provider Role Specialty Phone number Stas Mora MD Referring Family Medicine [phone] Roby Flores is a 89 year old [...] ALLERGIES No Known Allergies Indication for Warfarin: 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 use of anticoagulant Paroxysmal atrial fibrillation [...] Pharmacy Anticoagulation Clinic Pharmacy Anticoagulation Clinic Pager: [phone]. [facility]06-11-2025 Miscellaneous Notes* Telephone Encounter - Coretta Jalloh RPh - 08/31/2024 2:09 PM EDT [facility] Ambulatory Pharmacy Anticoagulation Clinic Anticoagulation Episode Summary Anticoagulation Care Providers Provider Role Specialty Phone number Stas Mora MD Referring Family Medicine [phone] Roby Flores is a 89 year old [...] ALLERGIES No Known Allergies Indication for Warfarin: USP current use of anticoagulant Paroxysmal atrial fibrillation [...] Pharmacy Anticoagulation Clinic Pharmacy Anticoagulation Clinic Pager: [phone]. documented in this encounterDet[facility]06-[facility]-2025 Instructions* Patient Instructions* Luciana Cisneros [...] if your symptoms change. documented in this encounterDet[facility]06-01-2025 Evaluation note* Diagnosis Onset Date [...] Unable to ambulate acute August 212024 10:24am [facility] Work Phone: [phone]) 661-377405-14-2025 Telephone encounter Note* Telephone Encounter - Coretta Jalloh [facility] - 08/03/2024 11:20 AM EDT I have reviewed the below recommendations and agree with plan. Coretta Jalloh PharmD [facility]05-14-2025 Miscellaneous Notes* Telephone Encounter - Coretta Jalloh [facility] - 08/03/2024 11:20 AM EDT I have reviewed the below recommendations and agree with plan. Coretta Jalloh PharmD * Telephone Encounter - Adrian HuangZoomForthElana Berry - 08/03/2024 10:57 AM EDT PATIENT [...] Caregiver verbalized understanding. Will route to [facility] as FYI. Elana Campbell ([facility]orth) * Telephone Encounter - Coretta Jalloh, DAVID - 08/03/2024 10:41 AM EDT [facility] Ambulatory Pharmacy Anticoagulation Clinic Anticoagulation Episode Summary Anticoagulation Care Providers Provider Role Specialty Phone number Stas Mora MD Referring Family Medicine [phone] Roby Flores is a 88 year old [...] ALLERGIES No Known Allergies Indication for Warfarin: 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 use of anticoagulant Paroxysmal atrial fibrillation [...] any doses of warfarin. Coretta Jalloh [facility] Clinical Pharmacist, Pharmacy Anticoagulation Clinic Pharmacy Anticoagulation Clinic Pager: [phone]. documented in this encounterDetwiler [facility]05-14-2025 Telephone encounter Note * Telephone Encounter - Adrian Huang[facility]orth)Elana - 08/03/2024 10:57 AM EDT PATIENT CALL [...] Caregiver verbalized understanding. Will route to [facility] as FYI. Elana HuangZoomForth) [facility]05-14-2025 Telephone encounter Note* Telephone Encounter - Coretta Jalloh RPh - 08/03/2024 10:41 AM EDT [facility] Ambulatory Pharmacy Anticoagulation Clinic Anticoagulation Episode Summary Anticoagulation Care Providers Provider Role Specialty Phone number Stas Mora MD Referring Family Medicine [phone] Roby Flores is a 88 year old [...] ALLERGIES No Known Allergies Indication for Warfarin: USP current use of anticoagulant Paroxysmal atrial fibrillation [...] Pharmacy Anticoagulation Clinic Pharmacy Anticoagulation Clinic Pager: [phone]. [facility]05-08-2025 History of Present illness Narrative* [...] Coronary atherosclerosis of unspecified type of vessel, [place] or graft Coronary artery disease Other and [...] Past Histories independently gathered by the clinical operations support representative and the remaining scribed note [...] AM. Rosie Cruz MA documented in this encounterDetwiler [facility]05-08-2025 NoteHNO ID: [id number] Author: STAS MORA MD Service: ? Author [...] Coronary atherosclerosis of unspecified type of vessel, [place] or graft Coronary artery disease Other and [...] Past Histories independently gathered by the clinical operations support representative and the remaining scribed note [...] July 28, 2024 11:16 AM. Rosie Cruz [facility]04-16-2025 Telephone encounter Note* Telephone Encounter - Coretta Jalloh [facility] - 07/06/2024 10:11 AM EDT [facility] Ambulatory Pharmacy Anticoagulation Clinic Anticoagulation Episode Summary Anticoagulation Care Providers Provider Role Specialty Phone number Stas Mora MD Referring Family Medicine [phone] Roby Flores is a 88 year old [...] ALLERGIES No Known Allergies Indication for Warfarin: 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 use of anticoagulant Paroxysmal atrial fibrillation [...] Pharmacy Anticoagulation Clinic Pharmacy Anticoagulation Clinic Pager: [phone]. [facility]04-16-2025 Miscellaneous Notes* Telephone Encounter - Coretta Jalloh [facility] - 07/06/2024 10:11 AM EDT [facility] Ambulatory Pharmacy Anticoagulation Clinic Anticoagulation Episode Summary Anticoagulation Care Providers Provider Role Specialty Phone number Stas Mora MD Referring Family Medicine [phone] Roby Flores is a 88 year old [...] ALLERGIES No Known Allergies Indication for Warfarin: 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 use of anticoagulant Paroxysmal atrial fibrillation [...] Pharmacy Anticoagulation Clinic Pharmacy Anticoagulation Clinic Pager: [phone]. documented in this encounterDetwiler [facility]04-09-2025 Telephone encounter Note * Telephone Encounter - Coretta Jalloh RPh - 06/29/2024 9:52 AM EDT [facility] Ambulatory Pharmacy Anticoagulation Clinic Anticoagulation Episode Summary Anticoagulation Care Providers Provider Role Specialty Phone number Stas Mora MD Referring Family Medicine [phone] Roby Flores is a 88 year old [...] ALLERGIES No Known Allergies Indication for Warfarin: USP current use of anticoagulant Paroxysmal atrial fibrillation (hcc) Anticoagulation Episode Summary Current INR goal: 2.0-3.0 Assessment: INR result of 2.5 is therapeutic Plan: Current Warfarin Dosing As of 06/29/2024 Full warfarin instructions: 1.5 mg every Thu, Sat; 2.5 mg all other days Sent Online-OR message Advised patient to continue current weekly [...] Pharmacy Anticoagulation Clinic Pharmacy Anticoagulation Clinic Pager: [phone]. [facility]04-09-2025 Miscellaneous Notes* Telephone Encounter - Coretta Jalloh RPh - 06/29/2024 9:52 AM EDT [facility] Ambulatory Pharmacy Anticoagulation Clinic Anticoagulation Episode Summary Anticoagulation Care Providers Provider Role Specialty Phone number Stas Mora MD Referring Family Medicine [phone] Roby Flores is a 88 year old [...] ALLERGIES No Known Allergies Indication for Warfarin: USP current use of anticoagulant Paroxysmal atrial fibrillation (hcc) Anticoagulation Episode Summary Current INR goal: 2.0-3.0 Assessment: INR result of 2.5 is therapeutic Plan: Current Warfarin Dosing As of 06/29/2024 Full warfarin instructions: 1.5 mg every Thu, Sat; 2.5 mg all other days Sent Online-OR message Advised patient to continue current weekly [...] Pharmacy Anticoagulation Clinic Pharmacy Anticoagulation Clinic Pager: [phone]. documented in this encounterDet[facility]03-12-2025 Instructions* Patient Instructions* Luciana Cisneros MD - 06/01/2024 3:39 PM EDT Look into adult date care once or twice a week. Physical Therapy for vascular parkinsonism documented in this encounterDetwiler [facility] Hospital03-12-2025 NoteHNO ID: [id number] Author: LUCIANA CISNEROS MD Service: ? Author Type: Physician Type: Progress Notes Filed: 07/14/2024 16:10 Note Text: [facility] Initial Consult Roby [...] not know 911 Social History: Primary language: [place] Marital Status: Single Living situation: Home w/ SO Socially engaged? (participates in activities such as clubs, tenriism, community center, sports, games, visiting friends/relatives, etc?): They go out to eat sometimes, not as often, most of the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 Sun; 3 mg all other days Left voice message for Gabby at [phone] (home) Advised patient to increase total weekly regimen Next lab INR check scheduled on 12/24/2023 Elise Paredes riya Clinical Pharmacist, Pharmacy Anticoagulation Clinic Pharmacy Anticoagulation Clinic Pager: [phone]. documented in this encounterDet[facility] Telephone encounter Note * Telephone Encounter - Elise Paredes RPh - 11/26/2023 4:32 PM EDT [facility] Anticoagulation Episode Summary Anticoagulation Care Providers Provider Role Specialty Phone number Stas Mora MD Referring Family Medicine [phone] Roby Flores is a 88 year old [...] ALLERGIES No Known Allergies Indication for Warfarin: 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 use of anticoagulant Paroxysmal atrial fibrillation [...] Pharmacy Anticoagulation Clinic Pharmacy Anticoagulation Clinic Pager: [phone]. [facility]09-05-2024 Miscellaneous Notes* Telephone Encounter - Elise Paredes RPh - 11/26/2023 4:32 PM EDT [facility] Antico[facility] Clinic Anticoagulation Episode Summary Anticoagulation Care Providers Provider Role Specialty Phone number Stas Mora MD Referring Family Medicine [phone] Roby Flores is a 88 year old [...] ALLERGIES No Known Allergies Indication for Warfarin: 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 Elise Paredes [facility] Clinical Pharmacist, Pharmacy Anticoagulation Clinic Pharmacy Anticoagulation Clinic Pager: [phone]. * Telephone Encounter - Satish (Lubricating SpecialistParmjit Berry - 11/26/2023 4:26 PM EDT Patient's spouse called regarding message. Patient typically takes warfarin in the morning but did not take any today. Patient's spouse doesn't understand why its low all the sudden. Denies changes in medication/ diet or missed doses. Call transferred to [facility] Parmjit Covarrubias, Mortgage Broker (child and family services worker) Pharmacy Anticoagulation Clinic * Telephone Encounter - Elise Paredes [facility] - 11/26/2023 4:21 PM EDT [facility] Amb[facility] Pharmacy Antico[facility] Clinic Anticoagulation Episode Summary Anticoagulation Care Providers Provider Role Specialty Phone number Stas Mora MD Referring Family Medicine [phone] Roby Flores is a 88 year old [...] ALLERGIES No Known Allergies Indication for Warfarin: 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 use of anticoagulant Paroxysmal atrial fibrillation [...] PAC to discuss further Elise Paredes [facility] Clinical Pharmacist, Pharmacy Anticoagulation Clinic Pharmacy Anticoagulation Clinic Pager: [phone]. documented in this encounterDetwiler [facility] Hospital09-[facility]-2024 Telephone encounter Note * Telephone Encounter - Satish (Lubricating Specialist)Parmjit - 11/26/2023 4:26 PM EDT Patient's spouse called regarding message. Patient typically takes warfarin in the morning but did not take any today. Patient's spouse doesn't understand why its low all the sudden. Denies changes in medication/ diet or missed doses. Call transferred to [facility] Parmjit Covarrubias, Mortgage Broker (child and family services worker) Pharmacy Anticoagulation Clinic [facility]09-05[facility] Telephone encounter Note* Telephone Encounter - Elise Paredes [facility] - 11/26/2023 4:21 PM EDT [facility] Ambulatory [facility]acy Antico[facility] Clinic Anticoagulation Episode Summary Anticoagulation Care Providers Provider Role Specialty Phone number Stas Mora MD Referring Family Medicine [phone] Roby Flores is a 88 year old [...] ALLERGIES No Known Allergies Indication for Warfarin: USP current use of anticoagulant Paroxysmal atrial fibrillation [...] Pharmacy Anticoagulation Clinic Pharmacy Anticoagulation Clinic Pager: [phone]. [facility]09-05-[facility] History of Present illness Narrative* [...] Coronary atherosclerosis of unspecified type of vessel, [place] or graft Comment: Coronary artery disease No [...] Past Histories independently gathered by the clinical operations support representative and the remaining scribed note [...] AM. Rosie Cruz MA documented in this encounterDetwiler [facility] Hospital09-05-2024 NoteHNO ID: [id number] Author: STAS MORA MD Service: ? Author [...] Coronary atherosclerosis of unspecified type of vessel, [place] or graft Comment: Coronary artery disease No [...] Advance Directive Discussion Compl (more content not included)...[facility]08-28-2024 Telephone encounter Note* Telephone Encounter - Coretta Jalloh RP - 11/18/2023 4:30 PM EDT [facility] Ambulatory Pharmacy Anticoagulation Clinic Anticoagulation Episode Summary Anticoagulation Care Providers Provider Role Specialty Phone number Stas Mora MD Referring Family Medicine [phone] Roby Flores is a 88 year old [...] ALLERGIES No Known Allergies Indication for Warfarin: 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 use of anticoagulant Paroxysmal atrial fibrillation [...] Pharmacy Anticoagulation Clinic Pharmacy Anticoagulation Clinic Pager: [phone]. [facility]08-28-2024 Miscellaneous Notes* Telephone Encounter - Coretta Jalloh RPh - 11/18/2023 4:30 PM EDT [facility] Ambulatory Pharmacy Anticoagulation Clinic Anticoagulation Episode Summary Anticoagulation Care Providers Provider Role Specialty Phone number Stas Mora MD Referring Family Medicine [phone] Roby Flores is a 88 year old [...] ALLERGIES No Known Allergies Indication for Warfarin: 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 use of anticoagulant Paroxysmal atrial fibrillation [...] Pharmacy Anticoagulation Clinic Pharmacy Anticoagulation Clinic Pager: [phone]. documented in this encounterDetwiler Memorial Hospital08-26-2024 Telephone encounter Note * Telephone Encounter - Elvis Kearney APRN.CNP - 11/16/2023 9:39 AM EDT The following approved medication requests have been transmitted electronically. Requested Prescriptions Pending Prescriptions Disp Refills warfarin (COUMADIN) 1 mg tablet 30 tablet 5 Sig: Take 1 tablet by mouth once daily. Elvis Kearney APRN.CNP [facility]08-26-2024 Miscellaneous Notes* Telephone Encounter - [...] 16, 2023 9:00 AM documented in this encounterDetwiler Memorial Hospital08-26-2024 Telephone encounter Note * Telephone [...] Shahid MA November 16, 2023 9:06 AM [facility]08-26-2024 Telephone encounter Note* Telephone Encounter [...] Keke Rinaldi November 16, 2023 9:00 AM [facility]07-24-2024 Telephone encounter Note* Telephone Encounter - Coretta Jalloh RPh - 10/14/2023 4:21 PM EDT [facility] Ambulatory Pharmacy Anticoagulation Clinic Anticoagulation Episode Summary Anticoagulation Care Providers Provider Role Specialty Phone number Stas Mora MD Referring Family Medicine [phone] Roby Flores is a 88 year old [...] ALLERGIES No Known Allergies Indication for Warfarin: USP current use of anticoagulant Paroxysmal atrial fibrillation [...] Pharmacy Anticoagulation Clinic Pharmacy Anticoagulation Clinic Pager: [phone]. [facility]07-24[facility] Miscellaneous Notes* Telephone Encounter - Coretta Jalloh RPh - 10/14/2023 4:21 PM EDT [facility] Amb[facility]acy Anticoagulation Clinic Anticoagulation Episode Summary Anticoagulation Care Providers Provider Role Specialty Phone number Stas Mora MD Referring Family Medicine [phone] Roby Flores is a 88 year old [...] ALLERGIES No Known Allergies Indication for Warfarin: USP current use of anticoagulant Paroxysmal atrial fibrillation [...] Pharmacy Anticoagulation Clinic Pharmacy Anticoagulation Clinic Pager: [phone]. documented in this encounterCleveland [id number] Telephone encounter Note * Telephone Encounter - Colleen Sommer [facility] - 09/16/2023 11:15 AM EDT [facility] Anticoagulation Clinic Anticoagulation Episode Summary Anticoagulation Care Providers Provider Role Specialty Phone number Stas Mora MD Referring Family Medicine [phone] Roby Flores is a 88 year old [...] Pharmacy Anticoagulation Clinic Pharmacy Anticoagulation Clinic Pager: [phone]. [facility]06-26-[facility] Miscellaneous Notes* Telephone Encounter - Colleen Sommer RPh - 09/16/2023 11:15 AM EDT [facility] Ambulatory Pharmacy Anticoagulation Clinic Anticoagulation Episode Summary Anticoagulation Care Providers Provider Role Specialty Phone number Stas Mora MD Referring Family Medicine [phone] Roby Flores is a 88 year old [...] Pharmacy Anticoagulation Clinic Pharmacy Anticoagulation Clinic Pager: [phone]. documented in this encounterDetwiler Memorial Hospital06-25-2024 Instructions* Patient Instructions* Rosie Cruz MA - 09/15/2023 8:48 AM EDT Starting Lasix (Furosemide) 20 mg once daily as needed. You can use the medication on days where swelling is increased. Elevate legs through out the day to help with swelling. Decrease sodium in diet. documented in this encounterDetwiler Memorial Hospital06-25-2024 History of Present illness Narrative* [...] Coronary atherosclerosis of unspecified type of vessel, [place] or graft Coronary artery disease Other and [...] Past Histories independently gathered by the clinical operations support representative and the remaining scribed note [...] AM. Rosie Cruz MA documented in this encounterDetwiler [facility] Hospital06-24-2024 Telephone encounter Note * Telephone [...] difficulty breathing Protocols used: Leg Swelling and [id number] [facility]06-24-2024 Miscellaneous Notes* Telephone Encounter - Marian Croona RN - 09/14/2023 3:24 PM EDT Significant [...] difficulty breathing Protocols used: Leg Swelling and [id number] * Telephone Encounter - Elana Valdes RN - 09/14/2023 2:52 PM EDT Called and left a voicemail for the Patient and on the Pts girlfriends phone to have the Pt call back and ask for a nurse to receive the providers message. We need more information about his bilateral leg swelling that he was scheduled for tomorrow. Elana Valdes RN documented in this encounterDetwiler Memorial Hospital06-24-2024 Telephone encounter Note * Telephone [...] was scheduled for tomorrow. Elana Valdes RN [facility]06-12-2024 Telephone encounter Note* Telephone Encounter - Coretta Jalloh [facility] - 09/02/2023 3:08 PM EDT [facility] Ambulatory Pharmacy Anticoagulation Clinic Anticoagulation Episode Summary Anticoagulation Care Providers Provider Role Specialty Phone number Stas Mora MD Referring Family Medicine [phone] Roby Flores is a 88 year old [...] ALLERGIES No Known Allergies Indication for Warfarin: 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 use of anticoagulant Paroxysmal atrial fibrillation [...] Pharmacy Anticoagulation Clinic Pharmacy Anticoagulation Clinic Pager: [phone]. [facility]06-12-2024 Miscellaneous Notes* Telephone Encounter - Coretta Jalloh RPh - 09/02/2023 3:08 PM EDT [facility] Ambulatory Pharmacy Anticoagulation Clinic Anticoagulation Episode Summary Anticoagulation Care Providers Provider Role Specialty Phone number Stas Mora MD Referring Family Medicine [phone] Roby Flores is a 88 year old [...] ALLERGIES No Known Allergies Indication for Warfarin: 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 use of anticoagulant Paroxysmal atrial fibrillation [...] Pharmacy Anticoagulation Clinic Pharmacy Anticoagulation Clinic Pager: [phone]. documented in this encounterDetwiler [facility] Hospital06-05-2024 Telephone encounter Note * Telephone Encounter - Coretta Jalloh RPh - 08/26/2023 5:03 PM EDT [facility] Ambulatory Pharmacy Anticoagulation Clinic Anticoagulation Episode Summary Anticoagulation Care Providers Provider Role Specialty Phone number Stas Mora MD Referring Family Medicine [phone] Roby Flores is a 88 year old [...] ALLERGIES No Known Allergies Indication for Warfarin: USP current use of anticoagulant Paroxysmal atrial fibrillation [...] Pharmacy Anticoagulation Clinic Pharmacy Anticoagulation Clinic Pager: [phone]. [facility]06-05-2024 Miscellaneous Notes* Telephone Encounter - Coretta Jalloh RPh - 08/26/2023 5:03 PM EDT [facility] Ambulatory Pharmacy Anticoagulation Clinic Anticoagulation Episode Summary Anticoagulation Care Providers Provider Role Specialty Phone number Stas Mora MD Referring Family Medicine [phone] Roby Flores is a 88 year old [...] ALLERGIES No Known Allergies Indication for Warfarin: 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 use of anticoagulant Paroxysmal atrial fibrillation [...] Pharmacy Anticoagulation Clinic Pharmacy Anticoagulation Clinic Pager: [phone]. documented in this encounterDetwiler [facility] Hospital05-29-2024 Telephone encounter Note * Telephone Encounter - Coretta Jalloh RPh - 08/19/2023 5:09 PM EDT [facility] Ambulatory Pharmacy Anticoagulation Clinic Anticoagulation Episode Summary Anticoagulation Care Providers Provider Role Specialty Phone number Stas Mora MD Referring Family Medicine [phone] Royb Flores is a 88 year old year [...] Pharmacy Anticoagulation Clinic Pharmacy Anticoagulation Clinic Pager: [phone]. [facility]05-29-2024 Miscellaneous Notes* Telephone Encounter - Coretta Jalloh RPh - 08/19/2023 5:09 PM EDT [facility] Ambulatory Pharmacy Anticoagulation Clinic Anticoagulation Episode Summary Anticoagulation Care Providers Provider Role Specialty Phone number Stas Mora MD Referring Family Medicine [phone] Roby Flores is a 88 year old [...] Pharmacy Anticoagulation Clinic Pharmacy Anticoagulation Clinic Pager: [phone]. documented in this encounterDetwiler Memorial Hospital05-24-2024 History of Present illness Narrative* [...] letter about it, doesn't know who the installation helper is or where the tenriism is. states this is not true. He was looking for his brother who lives out of state, thought he was still staying with them, however he has not been up to [place] since Jan. No hallucinations. Is not leaving [...] Coronary atherosclerosis of unspecified type of vessel, [place] or graft Coronary artery disease Other and [...] Past Histories independently gathered by the clinical operations support representative and the remaining scribed note [...] AM. Marta Palacio MA documented in this encounterDetwiler [facility] Hospital05-22-2024 Telephone encounter Note * Telephone Encounter - Yeimi Coretta [facility] - 08/12/2023 4:27 PM EDT [facility] Ambulatory Pharmacy Anticoagulation Clinic Anticoagulation Episode Summary Anticoagulation Care Providers Provider Role Specialty Phone number Stas Mora MD Referring Family Medicine [phone] Roby Flores is a 87 year old [...] ALLERGIES No Known Allergies Indication for Warfarin: 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 use of anticoagulant Paroxysmal atrial fibrillation [...] Pharmacy Anticoagulation Clinic Pharmacy Anticoagulation Clinic Pager: [phone]. [facility]05-22-2024 Miscellaneous Notes* Telephone Encounter - Coretta Jalloh RPh - 08/12/2023 4:27 PM EDT [facility] Ambulatory Pharmacy Anticoagulation Clinic Anticoagulation Episode Summary Anticoagulation Care Providers Provider Role Specialty Phone number Stas Mora MD Referring Family Medicine [phone] Roby Flores is a 87 year old [...] ALLERGIES No Known Allergies Indication for Warfarin: 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 use of anticoagulant Paroxysmal atrial fibrillation [...] Pharmacy Anticoagulation Clinic Pharmacy Anticoagulation Clinic Pager: [phone]. documented in this encounterDetwiler Memorial Hospital05-15-2024 Telephone encounter Note * Telephone Encounter - Coretta Jalloh RPh - 08/05/2023 4:41 PM EDT [facility] Ambulatory Pharmacy Anticoagulation Clinic Anticoagulation Episode Summary Anticoagulation Care Providers Provider Role Specialty Phone number Stas Mora MD Referring Family Medicine [phone] Roby Flores is a 87 year old [...] ALLERGIES No Known Allergies Indication for Warfarin: 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 use of anticoagulant Paroxysmal atrial fibrillation [...] Pharmacy Anticoagulation Clinic Pharmacy Anticoagulation Clinic Pager: [phone]. [facility]05-15-2024 Miscellaneous Notes* Telephone Encounter - Coretta Jalloh, [facility] - 08/05/2023 4:41 PM EDT [facility] Ambulatory Pharmacy Anticoagulation Clinic Anticoagulation Episode Summary Anticoagulation Care Providers Provider Role Specialty Phone number Stas Mora MD Referring Family Medicine [phone] Roby Flores is a 87 year old [...] ALLERGIES No Known Allergies Indication for Warfarin: 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 use of anticoagulant Paroxysmal atrial fibrillation [...] Pharmacy Anticoagulation Clinic Pharmacy Anticoagulation Clinic Pager: [phone]. documented in this encounterDetwiler [facility] Hospital05-08-2024 Telephone encounter Note * Telephone Encounter - Elena Lopez RPh - 07/29/2023 3:21 PM EDT [facility] Ambulatory Pharmacy Anticoagulation Clinic Anticoagulation Episode Summary Anticoagulation Care Providers Provider Role Specialty Phone number Stas Mora MD Referring Family Medicine [phone] Roby Flores is a 87 year old [...] ALLERGIES No Known Allergies Indication for Warfarin: 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 use of anticoagulant Paroxysmal atrial fibrillation [...] Pharmacy Anticoagulation Clinic Pharmacy Anticoagulation Clinic Pager: [phone]. [facility]05-08-2024 Miscellaneous Notes* Telephone Encounter - Elena Lopez RPh - 07/29/2023 3:21 PM EDT [facility] Ambulatory Pharmacy Anticoagulation Clinic Anticoagulation Episode Summary Anticoagulation Care Providers Provider Role Specialty Phone number Stas Mora MD Referring Family Medicine [phone] Roby Flores is a 87 year old [...] ALLERGIES No Known Allergies Indication for Warfarin: 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 use of anticoagulant Paroxysmal atrial fibrillation [...] Pharmacy Anticoagulation Clinic Pharmacy Anticoagulation Clinic Pager: [phone]. documented in this encounterDetwiler [facility] Hospital05-01-2024 Telephone encounter Note * Telephone Encounter - Coretta Jalloh RPh - 07/22/2023 4:40 PM EDT [facility] Ambulatory Pharmacy Anticoagulation Clinic Anticoagulation Episode Summary Anticoagulation Care Providers Provider Role Specialty Phone number Stas Mora MD Referring Family Medicine [phone] Roby Flores is a 87 year old [...] ALLERGIES No Known Allergies Indication for Warfarin: USP 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 Coretta Jalloh [facility] Clinical Pharmacist, Pharmacy Anticoagulation Clinic Pharmacy Anticoagulation Clinic Pager: [phone]. [facility]05-01-2024 Miscellaneous Notes* Telephone Encounter - Coretta Jalloh RPh - 07/22/2023 4:40 PM EDT [facility] Ambulatory Pharmacy Anticoagulation Clinic Anticoagulation Episode Summary Anticoagulation Care Providers Provider Role Specialty Phone number Stas Mora MD Referring Family Medicine [phone] Roby Flores is a 87 year old [...] ALLERGIES No Known Allergies Indication for Warfarin: 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 use of anticoagulant Paroxysmal atrial fibrillation [...] Pharmacy Anticoagulation Clinic Pharmacy Anticoagulation Clinic Pager: [phone]. documented in this encounterDetwiler Memorial Hospital04-24-2024 Telephone encounter Note * Telephone Encounter - Coretta Jalloh RPh - 07/15/2023 3:18 PM EDT [facility] Ambulatory [facility]acy Anticoagulation Clinic Anticoagulation Episode Summary Anticoagulation Care Providers Provider Role Specialty Phone number Stas Mora MD Referring Family Medicine [phone] Roby Flores is a 87 year old [...] ALLERGIES No Known Allergies Indication for Warfarin: USP current use of anticoagulant Paroxysmal atrial fibrillation [...] Pharmacy Anticoagulation Clinic Pharmacy Anticoagulation Clinic Pager: [phone]. [facility]04-24-2024 Miscellaneous Notes* Telephone Encounter - Coretta Jalloh RPh - 07/15/2023 3:18 PM EDT [facility] Ambulatory Pharmacy Anticoagulation Clinic Anticoagulation Episode Summary Anticoagulation Care Providers Provider Role Specialty Phone number Stas Mora MD Referring Family Medicine [phone] Roby Flores is a 87 year old [...] ALLERGIES No Known Allergies Indication for Warfarin: USP current use of anticoagulant Paroxysmal atrial fibrillation [...] Pharmacy Anticoagulation Clinic Pharmacy Anticoagulation Clinic Pager: [phone]. documented in this encounterDetwiler [facility] Hospital04-17-2024 Miscellaneous Notes* Telephone Encounter - Coretta Jalloh RPh - 07/08/2023 4:36 PM EDT [facility]acy Anticoagulation Clinic Anticoagulation Episode Summary Anticoagulation Care Providers Provider Role Specialty Phone number Stas Mora MD Referring Family Medicine [phone] Roby Flores is a 87 year old [...] ALLERGIES No Known Allergies Indication for Warfarin: 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 use of anticoagulant Paroxysmal atrial fibrillation [...] Pharmacy Anticoagulation Clinic Pharmacy Anticoagulation Clinic Pager: [phone]. documented in this encounterDetwiler [facility] Hospital04-10-2024 Miscellaneous Notes* Telephone Encounter - Coretta Jalloh RPh - 07/01/2023 5:20 PM EDT [facility] Anticoagulation Clinic Anticoagulation Episode Summary Anticoagulation Care Providers Provider Role Specialty Phone number Stas Mora MD Referring Family Medicine [phone] Roby Flores is a 87 year old [...] ALLERGIES No Known Allergies Indication for Warfarin: 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 use of anticoagulant Paroxysmal atrial fibrillation [...] check scheduled on 07/08/2023 Coretta Jalloh [facility] Clinical Pharmacist, Pharmacy Anticoagulation Clinic Pharmacy Anticoagulation Clinic Pager: [phone]. documented in this encounterDetwiler [facility]04-04-2024 Telephone encounter Note * Telephone Encounter - Adrian (Lubricating Specialist)Elana - 06/25/2023 5:14 PM EDT Images from [...] remains on Remote TM list. Elana Campbell ([employer]) [facility]04-04-2024 Miscellaneous Notes* Telephone Encounter - Adrian HuangLubricating Specialist)Elana - 06/25/2023 5:14 PM EDT Images from [...] remains on Remote TM list. Elana Campbell ([employer]) * Telephone Encounter - Stas Mora MD - 06/25/2023 4:44 PM EDT It looks like my office became involved because the on-call doctor was called with his elevated INR. I would prefer he stay with the pharmacy for his routine monitoring. Stas Mora MD * Telephone Encounter - Adrian ([employer])Elana - 06/25/2023 4:03 PM EDT Pharm Phone [...] this time Please advise. Elana Campbell CPhT (Mortgage Broker) Pharmacy Anticoagulation Clinic documented in this encounterDetwiler [facility] Hospital04-04-2024 Telephone encounter Note * Telephone Encounter - Stas Mora MD - 06/25/2023 4:44 PM EDT It looks like my office became involved because the on-call doctor was called with his elevated INR. I would prefer he stay with the pharmacy for his routine monitoring. Stas Mora MD [facility]04-04-2024 Telephone encounter Note* Telephone Encounter - Adrian (Lubricating Specialist)Elana - 06/25/2023 4:03 PM EDT Pharm Phone [...] this time Please advise. Elana Campbell CPhT (Mortgage Broker) Pharmacy Anticoagulation Clinic [facility]04-03-2024 Miscellaneous Notes* Telephone Encounter - [...] with VKA drugs, such as warfarin, the [employer] 2012 Guideline recommends [...] Chest 2012, 141:7S-47S Avel RA, et al. [facility] 2017, 70: 252-289 Confirmed that pt is taking 1 mg daily. No changes to diet, medications, missed or extra doses, etc. Keke Tsang MA documented in this encounterDetwiler [facility]03-22-2024 Miscellaneous Notes* Telephone Encounter - [...] no Rosie Cruz Ma documented in this encounterDetwiler [facility] Hospital03-18-2024 Miscellaneous Notes* Telephone Encounter - [...] Information or narrative: no documented in this encounterDetwiler [facility] Hospital03-15-2024 Miscellaneous Notes* Telephone Encounter - [...] 6.9. Jenna Fitzpatrick APRN.CNP documented in this encounterDetwiler [facility] Hospital03-15-2024 Miscellaneous Notes* Telephone Encounter - [...] conference call with me. documented in this encounterDetwiler Memorial Hospital03-15-2024 Miscellaneous Notes* Telephone Encounter - [...] if patient calls them. documented in this encounterDetwiler [facility] Hospital03-14-2024 Miscellaneous Notes* Telephone Encounter - Hortencia Winston, RN - 06/04/2023 8:[address] Bell has left messages for the patient to call back regarding a critical lab. documented in this encounterDetwiler Memorial Hospital03-14-2024 Miscellaneous Notes* Telephone Encounter - [...] you. Jenna Fitzpatrick APRN.SHEMAR documented in this encounterDetwiler [facility] Hospital03-13-2024 Miscellaneous Notes* Telephone Encounter - Coretta Jalloh RPh - 06/03/2023 3:22 PM EDT [facility] Anticoagulation Episode Summary Anticoagulation Care Providers Provider Role Specialty Phone number Stas Mora MD Referring Family Medicine [phone] Roby Flores is a 87 year old [...] ALLERGIES No Known Allergies Indication for Warfarin: USP current use of anticoagulant Paroxysmal atrial fibrillation [...] Pharmacy Anticoagulation Clinic Pharmacy Anticoagulation Clinic Pager: [phone]. documented in this encounterDetwiler [facility] Hospital03-11-2024 History of Present illness Narrative* [...] Coronary atherosclerosis of unspecified type of vessel, [place] or graft Coronary artery disease Other and [...] unspecified vessel or lesion type, unspecified whether [place] or transplanted heart - ICD9: 414.00, ICD10: [...] Past Histories independently gathered by the clinical operations support representative and the remaining scribed note [...] PM. Marta Palacio MA documented in this encounterDetwiler [facility] Hospital03-06-2024 Miscellaneous Notes* Telephone Encounter - Coretta Jalloh [facility] - 05/27/2023 2:23 PM EST [facility] Anticoagulation Episode Summary Anticoagulation Care Providers Provider Role Specialty Phone number Stas Mora MD Referring Family Medicine [phone] Robyimelda Flores is a 87 year old year old male patient being evaluated today for a [facility] Anticoagulation Clinic Anticoagulation Episode Summary Anticoagulation Care Providers Provider Role Specialty Phone number Stas Mora MD Referring Family Medicine [phone] Robyimelda Flores is a 87 year old [...] ALLERGIES No Known Allergies Indication for Warfarin: USP current use of anticoagulant Paroxysmal atrial fibrillation [...] Pharmacy Anticoagulation Clinic Pharmacy Anticoagulation Clinic Pager: [phone]. documented in this encounterDetwiler Memorial Hospital02-28-2024 Miscellaneous Notes* Telephone Encounter - Coretta Jalloh RPh - 05/20/2023 2:36 PM EST [facility] Anticoagulation Episode Summary Anticoagulation Care Providers Provider Role Specialty Phone number Stas Mora MD Referring Family Medicine [phone] Roby Flores is a 87 year old [...] ALLERGIES No Known Allergies Indication for Warfarin: USP current use of anticoagulant Paroxysmal atrial fibrillation [...] Pharmacy Anticoagulation Clinic Pharmacy Anticoagulation Clinic Pager: [phone]. documented in this encounterDetwiler Memorial Hospital02-21-2024 Miscellaneous Notes* Telephone Encounter - Senia Phillips RPh - 05/13/2023 4:06 PM EST [facility] Anticoagulation Episode Summary Anticoagulation Care Providers Provider Role Specialty Phone number Stas Mora MD Referring Family Medicine [phone] Roby Flores is a 87 year old [...] ALLERGIES No Known Allergies Indication for Warfarin: 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 use of anticoagulant Paroxysmal atrial fibrillation [...] Pharmacy Anticoagulation Clinic Pharmacy Anticoagulation Clinic Pager: [phone]. documented in this encounterDetwiler Memorial Hospital02-14-2024 Miscellaneous Notes* Telephone Encounter - Coretta Jalloh RPh - 05/06/2023 3:14 PM EST [facility] Anticoagulation Episode Summary Anticoagulation Care Providers Provider Role Specialty Phone number Stas Mora MD Referring Family Medicine [phone] Roby Flores is a 87 year old [...] ALLERGIES No Known Allergies Indication for Warfarin: USP current use of anticoagulant Paroxysmal atrial fibrillation [...] Pharmacy Anticoagulation Clinic Pharmacy Anticoagulation Clinic Pager: [phone]. documented in this encounterDetwiler Memorial Hospital02-07-2024 Miscellaneous Notes* Telephone Encounter - Coretta Jalloh RPh - 04/29/2023 4:00 PM EST [facility] Anticoagulation Episode Summary Anticoagulation Care Providers Provider Role Specialty Phone number Stas Mora MD Referring Family Medicine [phone] Roby Flores is a 87 year old [...] ALLERGIES No Known Allergies Indication for Warfarin: 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 use of anticoagulant Paroxysmal atrial fibrillation [...] Pharmacy Anticoagulation Clinic Pharmacy Anticoagulation Clinic Pager: [phone]. documented in this encounterDetwiler Memorial Hospital12-01-2023 Miscellaneous Notes* Telephone Encounter - Elise Paredes [facility] - 02/20/2023 3:37 PM EST [facility] Anticoagulation Episode Summary Anticoagulation Care Providers Provider Role Specialty Phone number Stas Mora MD Referring Family Medicine [phone] Roby Flores is a 87 year old [...] ALLERGIES No Known Allergies Indication for Warfarin: USP current use of anticoagulant Paroxysmal atrial fibrillation [...] Pharmacy Anticoagulation Clinic Pharmacy Anticoagulation Clinic Pager: [phone]. documented in this encounterDetwiler Memorial Hospital11-28-2023 Miscellaneous Notes* Telephone Encounter - [...] evaluation Stas Mora MD documented in this encounterDetwiler Memorial Hospital11-28-2023 History of Present illness Narrative* [...] 17, 2023 7:43 AM documented in this encounterDetwiler Memorial Hospital11-27-2023 History of Present illness Narrative* Stas Mora MD - 02/16/2023 2:00 PM EST Chief Complaint Patient presents with: ED Follow-up HPI Roby Flores is a 87 year old male who presents here today for ER Follow Up.. Pt went to the [facility] ER on 02/10/23 with c/o fatigue, weakness, [...] Recheck in 1 week. Below copied from [employer]: Chief Complaint: Fatigue Informant: patient Onset/Context/Timing Onset: [...] complaints. Patient denies any headaches. [facility] Narrative Medical decision making narrative: Differential diagnosis [...] Coronary atherosclerosis of unspecified type of vessel, [place] or graft Coronary artery disease Other and [...] Completed Pneumococcal Vaccine: 65+ Completed Data reviewed [facility] ER reports 02/10/23 ASSESSMENT/PLAN: 1. Cerebral infarction, [...] Past Histories independently gathered by the clinical operations support representative and the remaining scribed note [...] PM. Marta Palacio Ma documented in this encounterDetwiler Memorial Hospital11-24-2023 Miscellaneous Notes* Telephone Encounter - Elise Paredes, [facility] - 02/13/2023 3:56 PM EST [facility] Anticoagulation Episode Summary Anticoagulation Care Providers Provider Role Specialty Phone number Stas Mora MD Referring Family Medicine [phone] Roby Flores is a 87 year old [...] ALLERGIES No Known Allergies Indication for Warfarin: 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 use of anticoagulant Paroxysmal atrial fibrillation [...] Pharmacy Anticoagulation Clinic Pharmacy Anticoagulation Clinic Pager: [phone]. documented in this encounterDetwiler Memorial Hospital11-17-2023 Miscellaneous Notes* Telephone Encounter - Senia Phillips RPh - 02/06/2023 4:28 PM EST [facility] Anticoagulation Episode Summary Anticoagulation Care Providers Provider Role Specialty Phone number Stas Mora MD Referring Family Medicine [phone] Roby Flores is a 87 year old [...] ALLERGIES No Known Allergies Indication for Warfarin: 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 use of anticoagulant Paroxysmal atrial fibrillation [...] Pharmacy Anticoagulation Clinic Pharmacy Anticoagulation Clinic Pager: [phone]. documented in this encounterDetwiler Memorial Hospital10-06-2023 Miscellaneous Notes* Telephone Encounter - Senia Phillips RPh - 12/26/2022 3:04 PM EDT [facility] Anticoagulation Episode Summary Anticoagulation Care Providers Provider Role Specialty Phone number Stas Mora MD Referring Family Medicine [phone] Roby Flores is a 87 year old [...] ALLERGIES No Known Allergies Indication for Warfarin: 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 use of anticoagulant Paroxysmal atrial fibrillation (hcc) Anticoagulation Episode Summary Current INR goal: 2.0-3.0 Assessment: INR result of 2.5 is therapeutic Plan: Current Warfarin Dosing As of 12/26/2022 Full warfarin instructions: 2.5 mg every day Sent Online-OR message Advised patient to continue current weekly dose as noted above Next lab INR check scheduled on 01/09/2023 Senia Phillips RPh Clinical Pharmacist, Pharmacy Anticoagulation Clinic Pharmacy Anticoagulation Clinic Pager: [phone]. documented in this encounterDetwiler Memorial Hospital09-29-2023 Miscellaneous Notes* Telephone Encounter - Senia Phillips RPh - 12/19/2022 4:30 PM EDT [facility] Anticoagulation Episode Summary Anticoagulation Care Providers Provider Role Specialty Phone number Stas Mora MD Referring Family Medicine [phone] Roby Flores is a 87 year old [...] ALLERGIES No Known Allergies Indication for Warfarin: USP current use of anticoagulant Paroxysmal atrial fibrillation (hcc) Anticoagulation Episode Summary Current INR goal: 2.0-3.0 Assessment: INR result of 2.0 is therapeutic Plan: Current Warfarin Dosing As of 12/19/2022 Full warfarin instructions: 2.5 mg every day Sent Online-OR message Advised patient to continue current weekly dose as noted above Next lab INR check scheduled on 01/02/2023 Senia Phillips RPh Clinical Pharmacist, Pharmacy Anticoagulation Clinic Pharmacy Anticoagulation Clinic Pager: [phone]. documented in this encounterDetwiler Memorial Hospital09-22-2023 Miscellaneous Notes* Telephone Encounter - Senia Phillips RPh - 12/12/2022 4:01 PM EDT [facility] Anticoagulation Episode Summary Anticoagulation Care Providers Provider Role Specialty Phone number Stas Mora MD Referring Family Medicine [phone] Roby Flores is a 87 year old [...] ALLERGIES No Known Allergies Indication for Warfarin: USP current use of anticoagulant Paroxysmal atrial fibrillation [...] Pharmacy Anticoagulation Clinic Pharmacy Anticoagulation Clinic Pager: [phone]. documented in this encounterDetwiler Memorial Hospital09-01-2023 Miscellaneous Notes* Telephone Encounter - Jeimy Duong RPh - 11/21/2022 2:38 PM EDT [facility] Anticoagulation Episode Summary Anticoagulation Care Providers Provider Role Specialty Phone number Stas Mora MD Referring Family Medicine [phone] Roby Flores is a 87 year old [...] Pharmacy Anticoagulation Clinic Pharmacy Anticoagulation Clinic Pager: [phone]. documented in this encounterDetwiler Memorial Hospital08-28-2023 Hospital Discharge instructions Patient Education [...] Wound changes colors Numbness around the wound 5523-[address] [employer]. [address] [place] [address]. All rights reserved. This information is not [...] the ears or bruising around the eyes 4394-[address] [employer] [place] [address]. All rights reserved. This information is not intended as a substitute for professional medical care. Always follow yourhealthcare professional's instructions. Follow Up Care 11/17/2022 15:05:08 With:Call Physician Referral Address:Unknown When:2-4 days [facility] 08-28-2023 Note Discharge Instructions Thank you for allowing [facility] to assist you with your healthcare needs. [...] Wound changes colors Numbness around the wound 6186-7022 [employer]. [address] [place] [address], [place] [address]. All rights reserved. This information is not [...] the ears or bruising around the eyes 3223-9766 [employer]. [address] [place] [address], [place] [address]. All rights reserved. This information is not intended as a substitute for professional medical care. Always follow yourhealthcare professional's instructions. Additional Information VACCINATE! IT SAVES LIVES! Members of the community who have not yet received the COVID-19 vaccine and would like to receive it can visit one of [facility] vaccine clinics. There are many vaccine clinic locations within the [facility]. For locations and available times, please visit www.[email or web address].[place].gov/. It is important to note that some COVID mobile vaccine clinics are held outdoors and may be canceled in rainy or stormy conditions. To learn more about pediatric vaccinations (ages 5-11), we invite you to visit the [facility] webpage. [email or web address] learn more about the COVID-19 vaccine, we invite you to visit the CDC website for a list of frequently asked questions. https://www.cdc.gov/coronavirus/2019-ncov/vaccines/faq.html [facility] Patient Portal Access Instructions: Stay connected with your healthcare team and access your personal medical information anytime with the [facility] Patient Portal. If you would like a full copy of your medical records please contact the [facility] Medical Records Department Thursday through Thursday between 8a.m. and 4:30p.m. Please follow the directions below to access the portal: 1.Access the email account you provided upon registration to the [facility].2.Look for an invitation email from [facility].3.Open the email and access the invitation link: Accept Invitation to [facility]4.Fill in the required العلي to create your account. Sign into www.[employer] with your username and password that you [...] you will allow to register on the [facility] Patient Portal for access to your information. You can also access the [facility] Patient Portal on the [facility] jonathon. Simply click on Health Records under [facility] and then click on the ERN logo. HOW TO SAFELY DISPOSE OF PRESCRIPTION [...] Call your local pharmacy or go to [email or web address] to find one close to you.3.Make use of household items: Use cat litter or old coffee grounds to dispose medications if other options arenot available. Mix your drugs with these household products, seal them in an airtight container andthrow it into the garbage. Call [facility]: [phone] to be sure your drugs can be [...] aware that I should contact my doctor. 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: Date/Time: Relationship to Patient: Witness Name/Signature: Date/Time: [facility] Note ORIGINAL EXAMINATION: CT OF THE [...] Sign Date: 11/17/2022 4:26:20 PM Ordering Provider: [facility]08-18-2023 Miscellaneous Notes* Telephone Encounter - Senia Phillips [facility] - 11/07/2022 3:22 PM EDT [facility] Anticoagulation Episode Summary Anticoagulation Care Providers Provider Role Specialty Phone number Stas Mora MD Referring Family Medicine [phone] Roby Flores is a 87 year old [...] ALLERGIES No Known Allergies Indication for Warfarin: USP current use of anticoagulant Paroxysmal atrial fibrillation (hcc) Anticoagulation Episode Summary Current INR goal: 2.0-3.0 Assessment: INR result of 2.2 is therapeutic Plan: Current Warfarin Dosing As of 11/07/2022 Full warfarin instructions: 2.5 mg every day Sent Online-OR message Advised patient to continue current weekly dose as noted above Next lab INR check scheduled on 11/21/2022 Senia Phillips RPh Clinical Pharmacist, Pharmacy Anticoagulation Clinic Pharmacy Anticoagulation Clinic Pager: [phone]. documented in this encounterDetwiler Memorial Hospital08-11-2023 Miscellaneous Notes* Telephone Encounter - Senia Phillips RPh - 10/31/2022 2:29 PM EDT Patient due to test INR today. Will continue to monitor for results. Senia Phillips RPh documented in this encounterDetwiler Memorial Hospital08-04-2023 Miscellaneous Notes* Telephone Encounter - Senia Phillips RPh - 10/24/2022 3:13 PM EDT [facility] Anticoagulation Episode Summary Anticoagulation Care Providers Provider Role Specialty Phone number Stas Mora MD Referring Family Medicine [phone] Roby Flores is a 87 year old [...] ALLERGIES No Known Allergies Indication for Warfarin: 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 use of anticoagulant Paroxysmal atrial fibrillation (hcc) Anticoagulation Episode Summary Current INR goal: 2.0-3.0 Assessment: INR result of 2.5 is therapeutic Plan: Current Warfarin Dosing As of 10/24/2022 Full warfarin instructions: 2.5 mg every day Sent [facility] message Advised patient to decrease total weekly regimen to better reflect overall dose given past few weeks Next lab INR check scheduled on 10/31/2022 Senia Phillips RPh Clinical Pharmacist, Pharmacy Anticoagulation Clinic Pharmacy Anticoagulation Clinic Pager: [phone]. documented in this encounterDetwiler Memorial Hospital07-28-2023 Miscellaneous Notes* Telephone Encounter - [...] Anticoagulation TE call from today by the [facility]. They spoke with pt at [phone] and gave pt instructions on what to do. Halina Castelan RN documented in this encounterDetwiler Memorial Hospital07-28-2023 Miscellaneous Notes* Telephone Encounter - Yomi Wills RPh - 10/17/2022 3:43 PM EDT [facility] Anticoagulation Episode Summary Anticoagulation Care Providers Provider Role Specialty Phone number Stas Mora MD Referring Family Medicine [phone] Roby Flores is a 87 year old [...] ALLERGIES No Known Allergies Indication for Warfarin: USP current use of anticoagulant Paroxysmal atrial fibrillation [...] Pharmacy Anticoagulation Clinic Pharmacy Anticoagulation Clinic Pager: [phone]. documented in this encounterDetwiler Memorial Hospital07-07-2023 Miscellaneous Notes* Telephone Encounter - Jeimy Duong RPh - 09/26/2022 2:11 PM EDT [facility] Anticoagulation Episode Summary Anticoagulation Care Providers Provider Role Specialty Phone number Stas Mora MD Referring Family Medicine [phone] Roby Flores is a 87 year old [...] Pharmacy Anticoagulation Clinic Pharmacy Anticoagulation Clinic Pager: [phone]. documented in this encounterDetwiler Memorial Hospital06-23-2023 Miscellaneous Notes* Telephone Encounter - Jeimy Duong RPh - 09/12/2022 2:50 PM EDT [facility] Anticoagulation Episode Summary Anticoagulation Care Providers Provider Role Specialty Phone number Stas Mora MD Referring Family Medicine [phone] Roby Flores is a 87 year old [...] accidental over dosage, changes in warfarin tablet color/shape/grader green meat, eating less green vegetables, recent illness/fever/nausea/vomiting/diarrhea, increased [...] Pharmacy Anticoagulation Clinic Pharmacy Anticoagulation Clinic Pager: [phone]. documented in this encounterDetwiler Memorial Hospital06-06-2023 Instructions* Patient Instructions* Marta Palacoi Ma - 08/26/2022 1:36 PM EDT Please check your medications when you get home and make sure that your medications match our list. documented in this encounterDetwiler Memorial Hospital06-06-2023 History of Present illness Narrative* Stas Mora MD - 08/26/2022 1:20 PM EDT Medical B eligibilty date 1999 Date of last exam 09/05/2021 PAST MEDICAL HISTORY Diagnosis Date Coronary atherosclerosis of unspecified type of vessel, [place] or graft Coronary artery disease Other and [...] wishes: Yes I am willing to follow [place] advanced directives. Depression screen He in the [...] Past Histories independently gathered by the clinical operations support representative and the remaining scribed note accurately describes my personal service to the patient. Stas Mora MD The documentation for this note was completed by Marta Palacio Ma acting as scribe for Stas Mora MD. August 26, 2022 1:17 PM. Marta Palacio Ma documented in this encounterDetwiler Memorial Hospital06-02-2023 Miscellaneous Notes* Telephone Encounter - Senia Alan [facility] - 08/22/2022 2:50 PM EDT [facility] Anticoagulation Episode Summary Anticoagulation Care Providers Provider Role Specialty Phone number Stas Mora MD Referring Family Medicine [phone] Roby Flores is a 87 year old [...] ALLERGIES No Known Allergies Indication for Warfarin: USP current use of anticoagulant Paroxysmal atrial fibrillation (hcc) Anticoagulation Episode Summary Current INR goal: 2.0-3.0 Assessment: INR result of 2.4 is therapeutic Plan: Current Warfarin Dosing As of 08/22/2022 Full warfarin instructions: 3.75 mg every Fri; 2.5 mg all other days Sent Online-OR message Advised patient to continue current weekly dose as noted above Next lab INR check scheduled on 08/29/2022 Senia Phlilips RPh Clinical Pharmacist, Pharmacy Anticoagulation Clinic Pharmacy Anticoagulation Clinic Pager: [phone]. documented in this encounterDetwiler Memorial Hospital04-28-2023 Miscellaneous Notes* Telephone Encounter - Senia Phillips RPh - 07/18/2022 3:29 PM EDT [facility] Anticoagulation Episode Summary Anticoagulation Care Providers Provider Role Specialty Phone number Stas Mora MD Referring Family Medicine [phone] Roby Flores is a 86 year old [...] ALLERGIES No Known Allergies Indication for Warfarin: 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 use of anticoagulant Paroxysmal atrial fibrillation (hcc) Anticoagulation Episode Summary Current INR goal: 2.0-3.0 Assessment: INR result of 2.1 is therapeutic Plan: Current Warfarin Dosing As of 07/18/2022 Full warfarin instructions: 2.5 mg every day Sent Online-OR message Advised patient to continue current weekly dose as noted above Next lab INR check scheduled on 08/01/2022 Senia Phillips RPh Clinical Pharmacist, Pharmacy Anticoagulation Clinic Pharmacy Anticoagulation Clinic Pager: [phone]. documented in this encounterDetwiler Memorial Hospital04-14-2023 Miscellaneous Notes* Telephone Encounter - Lety Gandara RPh - 07/04/2022 3:46 PM EDT [facility] Anticoagulation Episode Summary Anticoagulation Care Providers Provider Role Specialty Phone number Stas Mora MD Referring Family Medicine [phone] Roby Flores is a 86 year old [...] ALLERGIES No Known Allergies Indication for Warfarin: 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 Lety Gandara [facility] Clinical Pharmacist, Pharmacy Anticoagulation Clinic Pharmacy Anticoagulation Clinic Pager: [phone]. documented in this encounterDetwiler [facility]04-03-2023 Miscellaneous Notes* Telephone Encounter - [...] DAYS Elvis Kearney APRN.CNP documented in this encounterDetwiler [facility] Hospital03-31-2023 Miscellaneous Notes* Telephone Encounter - Senia Phillips [facility] - 06/20/2022 4:46 PM EDT [facility] Anticoagulation Episode Summary Anticoagulation Care Providers Provider Role Specialty Phone number Stas Mora MD Referring Family Medicine [phone] Roby Flores is a 86 year old [...] ALLERGIES No Known Allergies Indication for Warfarin: USP current use of anticoagulant Paroxysmal atrial fibrillation [...] Pharmacy Anticoagulation Clinic Pharmacy Anticoagulation Clinic Pager: [phone]. documented in this encounterDetwiler [facility] Hospital03-17-2023 Miscellaneous Notes* Telephone Encounter - Senia Phillips RPh - 06/06/2022 4:18 PM EDT [facility] Anticoagulation Episode Summary Anticoagulation Care Providers Provider Role Specialty Phone number Stas Mora MD Referring Family Medicine [phone] Roby Flores is a 86 year old [...] ALLERGIES No Known Allergies Indication for Warfarin: 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 use of anticoagulant Paroxysmal atrial fibrillation (hcc) Anticoagulation Episode Summary Current INR goal: 2.0-3.0 Assessment: INR result of 2.6 is therapeutic Plan: Current Warfarin Dosing As of 06/06/2022 Full warfarin instructions: 2.5 mg every day Sent Online-OR message Advised patient to continue current weekly dose as noted above Next lab INR check scheduled on 06/20/2022 Senia Phillips RPh Clinical Pharmacist, Pharmacy Anticoagulation Clinic Pharmacy Anticoagulation Clinic Pager: [phone]. documented in this encounterDetwiler [facility] Hospital03-10-2023 Miscellaneous Notes* Telephone Encounter - Neeru Rice LPN - 05/30/2022 3:02 PM EST Pharmacists manage INR documented in this encounterDetwiler Memorial Hospital03-02-2023 Miscellaneous Notes* Telephone Encounter - Halina Alfaro LPN - 05/22/2022 8:51 AM EST Patient notified spouse of results, verbalizes understanding of instructions. She will tell Pt. Hlaina Alfaro LPN * Telephone Encounter - Jenna [...] you. Jenna Fitzpatrick APRN.SHEMAR documented in this encounterDetwiler Memorial Hospital03-01-2023 Miscellaneous Notes* Telephone Encounter - [...] hip/leg 10. : na Protocols used: Hip [id number], Hip Bvaqro-[id number] documented in this encounterDetwiler Memorial Hospital03-01-2023 Miscellaneous Notes* Telephone Encounter - Fani Grace RN - 05/21/2022 12:22 PM EST Patient disconnected during transferred, called multiple time with no answer. documented in this encounterDetwiler Memorial Hospital02-27-2023 Miscellaneous Notes* Telephone Encounter - [...] instructions. Franca Cohen LPN documented in this encounterDetwiler Memorial Hospital02-24-2023 Miscellaneous Notes* Telephone Encounter - Senia Phillips RPh - 05/16/2022 5:10 PM EST Patient due to test INR today. Will continue to monitor for results. Senia Phillips RPh documented in this encounterDetwiler Memorial Hospital02-10-2023 Miscellaneous Notes* Telephone Encounter - Senia Phillips RPh - 05/02/2022 3:06 PM EST [facility] Anticoagulation Episode Summary Anticoagulation Care Providers Provider Role Specialty Phone number Stas Mora MD Referring Family Medicine [phone] Roby Flores is a 86 year old year old male patient being evaluated today for a Telemanagement visit. Patient is currently on the following anticoagulant(s) Warfarin. Labs PT INR (no units) Date Value 05/15/2021 2.3 04/17/2021 1.9 03/13/2021 Test sent to [facility]. INR (no units) Date Value 05/02/2022 [...] ALLERGIES No Known Allergies Indication for Warfarin: USP current use of anticoagulant Paroxysmal atrial fibrillation (hcc) Anticoagulation Episode Summary Current INR goal: 2.0-3.0 Assessment: INR result of 2.1 is therapeutic Plan: Current Warfarin Dosing As of 05/02/2022 Full warfarin instructions: 2.5 mg every day Sent Online-OR message Advised patient to continue current weekly dose as noted above Next lab INR check scheduled on 05/16/2022 Senia Phillips RPh Clinical Pharmacist, Pharmacy Anticoagulation Clinic Pharmacy Anticoagulation Clinic Pager: [phone]. documented in this encounterDetwiler [facility] Hospital01-27-2023 Miscellaneous Notes* Telephone Encounter - Senia Phillips RPh - 04/18/2022 4:25 PM EST [facility] Anticoagulation Episode Summary Anticoagulation Care Providers Provider Role Specialty Phone number Stas Mora MD Referring Family Medicine [phone] oRby Flores is a 86 year old year old male patient being evaluated today for a Telemanagement visit. Patient is currently on the following anticoagulant(s) Warfarin. Labs PT INR (no units) Date Value 05/15/2021 2.3 04/17/2021 1.9 03/13/2021 Test sent to [facility]. INR (no units) Date Value 04/18/2022 [...] ALLERGIES No Known Allergies Indication for Warfarin: 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 use of anticoagulant Paroxysmal atrial fibrillation (hcc) Anticoagulation Episode Summary Current INR goal: 2.0-3.0 Assessment: INR result of 2.4 is therapeutic Plan: Current Warfarin Dosing As of 04/18/2022 Full warfarin instructions: 2.5 mg every day; Starting 04/18/2022 Sent Online-OR message Advised patient to continue current weekly dose as noted above Next lab INR check scheduled on 05/02/2022 Senia Phillips RPh Clinical Pharmacist, Pharmacy Anticoagulation Clinic Pharmacy Anticoagulation Clinic Pager: [phone]. documented in this encounterDetwiler Memorial Hospital01-13-2023 Miscellaneous Notes* Telephone Encounter - Elise Paredes, [facility] - 04/04/2022 4:09 PM EST [facility] Anticoagulation Episode Summary Anticoagulation Care Providers Provider Role Specialty Phone number Stas Mora MD Referring Family Medicine [phone] Roby Flores is a 86 year old year old male patient being evaluated today for a Lab INR. Patient is currently on the following anticoagulant(s) Warfarin. Labs PT INR (no units) Date Value 05/15/2021 2.3 04/17/2021 1.9 03/13/2021 Test sent to [facility]. INR (no units) Date Value 04/04/2022 [...] ALLERGIES No Known Allergies Indication for Warfarin: USP current use of anticoagulant Paroxysmal atrial fibrillation [...] labs every 2 weeks Elise Paredes [facility] Clinical Pharmacist, Pharmacy Anticoagulation Clinic Pharmacy Anticoagulation Clinic Pager: [phone]. documented in this encounterDetwiler Memorial Hospital01-09-2023 Miscellaneous Notes* Telephone Encounter - Rosie Cruz Ma - 03/31/2022 5:12 PM EST Office received continuity of care paperwork from the [place] requesting pt's last OV, labs and Imm. PerPCP okay to fax back requested records. Faxed back to [facility] at F#: [phone]. Rosie Cruz Ma documented in this encounterDetwiler Memorial Hospital12-30-2022 Miscellaneous Notes* Telephone Encounter - Carmelina Cruz [facility] - 03/21/2022 4:05 PM EST [facility] Anticoagulation Episode Summary Anticoagulation Care Providers Provider Role Specialty Phone number Stas Mora MD Referring Family Medicine [phone] Roby Flores is a 86 year old year old male patient being evaluated today for a Telemanagement visit. Patient is currently on the following anticoagulant(s) Warfarin. Labs PT INR (no units) Date Value 05/15/2021 2.3 04/17/2021 1.9 03/13/2021 Test sent to [facility]. INR (no units) Date Value 03/21/2022 [...] ALLERGIES No Known Allergies Indication for Warfarin: USP current use of anticoagulant Paroxysmal atrial fibrillation (hcc) Anticoagulation Episode Summary Current INR goal: 2.0-3.0 Assessment: INR result of 2.9 is therapeutic Plan: Current Warfarin Dosing As of 03/21/2022 Full warfarin instructions: 2.5 mg every day; Starting 03/21/2022 Sent Online-OR message Advised patient to continue current weekly dose as noted above Next home INR check scheduled on 04/04/2022 Carmelina Cruz RPh Clinical Pharmacist, Pharmacy Anticoagulation Clinic Pharmacy Anticoagulation Clinic Pager: [phone]. * Telephone Encounter - Carmelina Cruz RPh - 03/21/2022 3:12 PM EST Patient due to test INR today. Will continue to monitor for results. Carmelina Cruz RPh documented in this encounterDetwiler Memorial Hospital12-02-2022 Miscellaneous Notes* Telephone Encounter - [...] whatever he wanted to. documented in this encounterDetwiler Memorial Hospital10-31-2022 Miscellaneous Notes* Telephone Encounter - Paige Hickman RPh - 01/20/2022 3:55 PM EDT [facility] An[facility] Anticoagulation Episode Summary Anticoagulation Care Providers Provider Role Specialty Phone number Stas Mora MD Referring Family Medicine [phone] Roby Flores is a 86 year old year old male patient being evaluated today for a Telemanagement visit. Patient is currently on the following anticoagulant(s) Warfarin. Labs PT INR (no units) Date Value 05/15/2021 2.3 04/17/2021 1.9 03/13/2021 Test sent to [facility]. INR (no units) Date Value 01/20/2022 [...] instructed to call [facility] at [phone] with any questionsor concerns. Paige Hickman RPh Clinical Pharmacist, Pharmacy Anticoagulation Clinic Pharmacy Anticoagulation Clinic Pager: [phone] documented in this encounterDetwiler Memorial Hospital10-28-2022 Miscellaneous Notes* Telephone Encounter - [...] the providers message. Sent information as a [employer] message as well. Elana Valdes RN * [...] to contact patient with no answer at [phone]. Current dose of coumadin is: 2.5 mg every day . Previous INR (date and result): 01/03/22 2.4 documented in this encounterDetwiler Memorial Hospital10-24-2022 Miscellaneous Notes* Telephone Encounter - [...] advise. López Mckenna LPN documented in this encounterDetwiler Memorial Hospital10-14-2022 Miscellaneous Notes* Telephone Encounter - Senia Phillips RPh - 01/03/2022 4:11 PM EDT [facility] Anticoagulation Clinic Anticoagulation Episode Summary Anticoagulation Care Providers Provider Role Specialty Phone number Stas Mora MD Referring Family Medicine [phone] Roby Flores is a 86 year old year old male patient being evaluated today for a Telemanagement visit. Patient is currently on the following anticoagulant(s) Warfarin. Labs PT INR (no units) Date Value 05/15/2021 2.3 04/17/2021 1.9 03/13/2021 Test sent to [facility]. INR (no units) Date Value 01/03/2022 [...] ALLERGIES No Known Allergies Indication for Warfarin: 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 use of anticoagulant Paroxysmal atrial fibrillation (hcc) Anticoagulation Episode Summary Current INR goal: 2.0-3.0 Assessment: INR result of 2.4 is therapeutic Plan: Current Warfarin Dosing As of 01/03/2022 Full warfarin instructions: 2.5 mg every day Sent Online-OR message Advised patient to continue current weekly dose as noted above Next lab INR check scheduled on 01/17/2022 Senia Phillips RPh Clinical Pharmacist, Pharmacy Anticoagulation Clinic Pharmacy Anticoagulation Clinic Pager: [phone]. documented in this encounterDetwiler Memorial Hospital10-14-2022 Miscellaneous Notes* Telephone Encounter - Mrata Palacio Ma - 01/03/2022 10:49 AM EDT Pt notified of results via Online-OR. Marta Palacio Ma * Telephone Encounter - Stas Mora MD - 01/02/2022 6:07 PM EDT Please notify patient that his thyroid ultrasound looks OK, the nodules are all small, appear normal, and do not need any further evaluation pr follow up. Stas Mora MD documented in this encounterDetwiler Memorial Hospital10-06-2022 History of Present illness Narrative* [...] about 1-2 hours. Pt was admitted to [facility] ER 12/21/21 with stroke sx however sx [...] in the last year. Below copied from [facility] Topadmit: HPI History of Present Illness Chief Complaint: [...] extremities. 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 Dorsi and plantar flexion intact. [...] Chronic anticoagulation: Status: Acute Code(s): Z79.01 - USP (current) use of anticoagulants Medications at Discharge [...] symptoms resolved. Hospital Course: 1. TIA/paroxysmal A. [id number]-old male presented with right-sided weakness and aphasia, [...] Coronary atherosclerosis of unspecified type of vessel, [place] or graft Coronary artery disease Other and [...] 12/06/2024 ADVANCE DIRECTIVE DISCUSSION Completed Data reviewed [facility] reports from 10/21/21-10/22/21 ASSESSMENT/PLAN: 1. Hospital discharge [...] unspecified vessel or lesion type, unspecified whether [place] or transplanted heart - ICD9: 414.00, ICD10: I25.10 Continue current medications. Follow up in Dec as scheduled with fasting labs prior. I agree with the Chief Complaint, ROS, and Past Histories independently gathered by the clinical operations support representative and the remaining scribed note [...] AM. Marta Palacio Ma documented in this encounterDetwiler Memorial Hospital09-30-2022 Miscellaneous Notes* Telephone Encounter - Senia Phillips RPh - 12/20/2021 4:39 PM EDT [facility] Anticoagulation Clinic Anticoagulation Episode Summary Anticoagulation Care Providers Provider Role Specialty Phone number Stas Mora MD Referring Family Medicine [phone] Roby Flores is a 86 year old year old male patient being evaluated today for a Telemanagement visit. Patient is currently on the following anticoagulant(s) Warfarin. Labs PT INR (no units) Date Value 05/15/2021 2.3 04/17/2021 1.9 03/13/2021 Test sent to [facility]. INR (no units) Date Value 12/20/2021 [...] ALLERGIES No Known Allergies Indication for Warfarin: USP current use of anticoagulant Paroxysmal atrial fibrillation (hcc) Anticoagulation Episode Summary Current INR goal: 2.0-3.0 Assessment: INR result of 2.1 is therapeutic Plan: Current Warfarin Dosing As of 12/20/2021 Full warfarin instructions: 2.5 mg every day Sent Online-OR message Advised patient to continue current weekly dose as noted above Next lab INR check scheduled on 01/03/2022 Senia Phillips RPh Clinical Pharmacist, Pharmacy Anticoagulation Clinic Pharmacy Anticoagulation Clinic Pager: [phone]. documented in this encounterDetwiler Memorial Hospital09-16-2022 Miscellaneous Notes* Telephone Encounter - Senia Phillips RPh - 12/06/2021 4:29 PM EDT [facility] Anticoagulation Clinic Anticoagulation Episode Summary Anticoagulation Care Providers Provider Role Specialty Phone number Stas Mora MD Referring [facility] [phone] Roby Flores is a 86 year old year old male patient being evaluated today for a Telemanagement visit. Patient is currently on the following anticoagulant(s) Warfarin. Labs PT INR (no units) Date Value 05/15/2021 2.3 04/17/2021 1.9 03/13/2021 Test sent to [facility]. INR (no units) Date Value 12/06/2021 [...] ALLERGIES No Known Allergies Indication for Warfarin: USP current use of anticoagulant Paroxysmal atrial fibrillation [...] Pharmacy Anticoagulation Clinic Pharmacy Anticoagulation Clinic Pager: [phone]. documented in this encounterDetwiler Memorial Hospital09-02-2022 Miscellaneous Notes* Telephone Encounter - Janice Huang riya - 11/22/2021 5:17 PM EDT [facility] Anticoagulation Clinic Anticoagulation Episode Summary Anticoagulation Care Providers Provider Role Specialty Phone number Stas Mora MD Referring [facility] [phone] Roby Flores is a 86 year old year old male patient being evaluated today for a Telemanagement visit. Patient is currently on the following anticoagulant(s) Warfarin. Labs PT INR (no units) Date Value 05/15/2021 2.3 04/17/2021 1.9 03/13/2021 Test sent to [facility]. INR (no units) Date Value 11/22/2021 [...] ALLERGIES No Known Allergies Indication for Warfarin: USP current use of anticoagulant Paroxysmal atrial fibrillation [...] Advised pt to Call Coumadin Clinic at [phone] to confirm dosing and follow-up Janice Huang riya Clinical Pharmacist, Pharmacy Anticoagulation Clinic Pharmacy Anticoagulation Clinic Pager: [phone]. documented in this encounterDetwiler Memorial Hospital08-19-2022 Miscellaneous Notes* Telephone Encounter - Senia Phillips RPh - 11/08/2021 5:01 PM EDT [facility]acy Anticoagulation Clinic Anticoagulation Episode Summary Anticoagulation Care Providers Provider Role Specialty Phone number Stas Mora MD Referring [facility] [phone] Roby Flores is a 86 year old year old male patient being evaluated today for a Telemanagement visit. Patient is currently on the following anticoagulant(s) Warfarin. Labs PT INR (no units) Date Value 05/15/2021 2.3 04/17/2021 1.9 03/13/2021 Test sent to [facility]. INR (no units) Date Value 11/08/2021 [...] ALLERGIES No Known Allergies Indication for Warfarin: USP current use of anticoagulant Paroxysmal atrial fibrillation (hcc) Anticoagulation Episode Summary Current INR goal: 2.0-3.0 Assessment: INR result of 2.8 is therapeutic Plan: Current Warfarin Dosing As of 11/08/2021 Full warfarin instructions: 2.5 mg every day Sent Online-OR message Advised patient to continue current weekly dose as noted above Next lab INR check scheduled on 11/22/2021 Senia Phillips RPh Clinical Pharmacist, Pharmacy Anticoagulation Clinic Pharmacy Anticoagulation Clinic Pager: [phone]. documented in this encounterDetwiler [facility] Hospital08-05-2022 Miscellaneous Notes* Telephone Encounter - Janice Huang RPh - 10/25/2021 4:16 PM EDT [facility] Anticoagulation Clinic Anticoagulation Episode Summary Anticoagulation Care Providers Provider Role Specialty Phone number Stas Mora MD Referring [facility] [phone] Roby Flores is a 86 year old year old male patient being evaluated today for a Telemanagement visit. Patient is currently on the following anticoagulant(s) Warfarin. Labs PT INR (no units) Date Value 05/15/2021 2.3 04/17/2021 1.9 03/13/2021 Test sent to [facility]. INR (no units) Date Value 10/25/2021 [...] ALLERGIES No Known Allergies Indication for Warfarin: 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 use of anticoagulant Paroxysmal atrial fibrillation [...] Pharmacy Anticoagulation Clinic Pharmacy Anticoagulation Clinic Pager: [phone] . documented in this encounterDetwiler Memorial Hospital07-08-2022 Miscellaneous Notes* Telephone Encounter - Elana Campbell ([employer]) - 09/27/2021 4:50 PM EDT PATIENT CALL Patient called call center regarding results. Patient called and stated he had his INR checked today (09/27) and it was 2.3. Patient can be called at [phone] with any questions or sent [facility] message if result is within range. PT INR (no units) Date Value 05/15/2021 2.3 04/17/2021 1.9 03/13/2021 Test sent to [facility]. INR (no units) Date Value 09/27/2021 2.3 09/13/2021 2.7 08/30/2021 2.1 Elana Campbell ([employer]) * Telephone Encounter - Yomi Wills RPh - 09/27/2021 6:28 AM EDT Patient due to test INR today. Will continue to monitor for results. Yomi Wills RPh documented in this encounterDetwiler Memorial Hospital06-24-2022 Miscellaneous Notes* Telephone Encounter - Senia Phillips RPh - 09/13/2021 4:11 PM EDT [facility] Anticoagulation Clinic Anticoagulation Episode Summary Anticoagulation Care Providers Provider Role Specialty Phone number Stas Mora MD Referring [facility] [phone] Roby Flores is a 86 year old year old male patient being evaluated today for a Telemanagement visit. Patient is currently on the following anticoagulant(s) Warfarin. Labs PT INR (no units) Date Value 05/15/2021 2.3 04/17/2021 1.9 03/13/2021 Test sent to [facility]. INR (no units) Date Value 09/13/2021 [...] ALLERGIES No Known Allergies Indication for Warfarin: 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 use of anticoagulant Paroxysmal atrial fibrillation (hcc) Anticoagulation Episode Summary Current INR goal: 2.0-3.0 Assessment: INR result of 2.7 is therapeutic Plan: Sent Online-OR message Advised patient to continue current weekly dose Next lab INR check scheduled on 09/27/2021 Senia Phillips RPh Clinical Pharmacist, Pharmacy Anticoagulation Clinic Pharmacy Anticoagulation Clinic Pager: [phone] . documented in this encounterDetwiler Memorial Hospital06-16-2022 History of Present illness Narrative* Stas Mora MD - 09/05/2021 11:20 AM EDT Medical B eligibilty date 1999 Date of last exam 08/28/2020 PAST MEDICAL HISTORY Diagnosis Date Coronary atherosclerosis of unspecified type of vessel, [place] or graft Coronary artery disease Other and [...] to remember the following three words: Banana, [place] and Chair Visuospatial/Executive Functioning: Clock drawin/2 (Normal [...] Past Histories independently gathered by the clinical operations support representative and the remaining scribed note accurately describes my personal service to the patient. Stas Mora MD The documentation for this note was completed by Rosie Cruz Ma acting as scribe for Stas Mora MD. September 05, 2021 11:33 AM. Rosie Cruz Ma documented in this encounterDetwiler Memorial Hospital06-10-2022 Miscellaneous Notes* Telephone Encounter - Senia Phillips, [facility] - 08/30/2021 5:10 PM EDT [facility]acy Anticoagulation Clinic Anticoagulation Episode Summary Anticoagulation Care Providers Provider Role Specialty Phone number Stas Mora MD Referring [facility] [phone] Roby Flores is a 86 year old year old male patient being evaluated today for a Telemanagement visit. Patient is currently on the following anticoagulant(s) Warfarin. Labs PT INR (no units) Date Value 05/15/2021 2.3 04/17/2021 1.9 03/13/2021 Test sent to [facility]. INR (no units) Date Value 08/30/2021 [...] ALLERGIES No Known Allergies Indication for Warfarin: USP current use of anticoagulant Paroxysmal atrial fibrillation (hcc) Anticoagulation Episode Summary Current INR goal: 2.0-3.0 Assessment: INR result of 2.1 is therapeutic Plan: Sent mychart message Advised patient to continue current weekly dose Next lab INR check scheduled on 09/13/2021 Senia Phillips RPh Clinical Pharmacist, Pharmacy Anticoagulation Clinic Pharmacy Anticoagulation Clinic Pager: [phone] . documented in this encounterDetwiler Memorial Hospital06-10-2022 Miscellaneous Notes* Telephone Encounter - Jenna Fitzpatrick APRN.CNP - 08/30/2021 8:56 AM EDT Needs order for PT/INR, order signed. Jenna Fitzpatrick APRN.CNP documented in this encounterDetwiler Memorial Hospital05-27-2022 Miscellaneous Notes* Telephone Encounter - Rosie Cruz Ma - 08/16/2021 2:18 PM EDT INR has been reviewed in another encounter. Rosie Cruz Ma documented in this encounterDetwiler Memorial Hospital05-13-2022 Miscellaneous Notes* Telephone Encounter - Senia Phillips RPh - 08/02/2021 4:11 PM EDT [facility] Anticoagulation Episode Summary Anticoagulation Care Providers Provider Role Specialty Phone number Stas Mora MD Referring [facility] [phone] Roby Flores is a 85 year old year old male patient being evaluated today for a Telemanagement visit. Patient is currently on the following anticoagulant(s) Warfarin. Labs PT INR (no units) Date Value 05/15/2021 2.3 04/17/2021 1.9 03/13/2021 Test sent to [facility]. INR (no units) Date Value 08/02/2021 [...] ALLERGIES No Known Allergies Indication for Warfarin: USP current use of anticoagulant Paroxysmal atrial fibrillation [...] Pharmacy Anticoagulation Clinic Pharmacy Anticoagulation Clinic Pager: [phone] . [facility] Miscellaneous Notes* Telephone Encounter - [...] months Stas Mora MD documented in this encounterDet[facility]22 Miscellaneous Notes* Telephone Encounter - Elvis Kearney APRN.CNP - 07/15/2021 12:39 PM EDT The following approved medication requests have been transmitted electronically. Pending Prescriptions Disp Refills WARFARIN 2.5 MG TABLET 135 tablet 3 Sig: TAKE 5 MG EVERY MON, DIXIE 2.5 MG ALL OTHER DAYS MESFIN: No Elvis Kearney APRN.CNP documented in this encounterDetw[facility]04-18-[facility]22 History of Present illness Narrative* [...] SOB. No swelling in feet orankles. No release of information specialist. Taking Fosinopril 10 mg daily. Lipid: Taking [...] Coronary atherosclerosis of unspecified type of vessel, [place] or graft Coronary artery disease Other and [...] unspecified vessel or lesion type, unspecified whether [place] or transplanted heart - ICD9: 414.00, ICD10: [...] Past Histories independently gathered by the clinical operations support representative and the remaining scribed note [...] AM. Marta Palacio Ma documented in this encounterDetw[facility]04-13-2022 Miscellaneous Notes* Telephone Encounter - Coretta Jalloh, [facility] - 07/03/2021 3:40 PM EDT [facility] Anticoagulation Episode Summary Anticoagulation Care Providers Provider Role Specialty Phone number Stas Mora MD Referring [facility] [phone] Roby Flores is a 85 year old year old male patient being evaluated today for a Lab INR. Patient is currently on the following anticoagulant(s) Warfarin. Labs PT INR (no units) Date Value 05/15/2021 2.3 04/17/2021 1.9 03/13/2021 Test sent to [facility]. INR (no units) Date Value 07/03/2021 4.5 06/12/2021 3.5 Creatinine (mg/dL) Date Value 03/13/2021 0.80 08/28/2020 0.83 Bilirubin, Total (mg/dL) Date Value 03/13/2021 0.5 ALT (U/L) Date Value 03/13/2021 24 AST (U/L) Date Value 03/13/2021 24 CrCl cannot be calculated (Unknown ideal weight.). ALLERGIES No Known Allergies Indication for Warfarin: 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 use of anticoagulant Paroxysmal atrial fibrillation [...] Pharmacy Anticoagulation Clinic Pharmacy Anticoagulation Clinic Pager: [phone] . * Telephone Encounter - Marta Palacio Ma - 07/03/2021 3:05 PM EDT INR 4.5. Results routed to pharmacist who Handles pt coumadin. Marta Palacio Ma documented in this encounterDetw[facility]03-23-2022 Miscellaneous Notes* Telephone Encounter - Coretta Jalloh RPh - 06/12/2021 3:20 PM EDT [facility] Anticoagulation Episode Summary Anticoagulation Care Providers Provider Role Specialty Phone number Stas Mora MD Referring [facility] [phone] Roby Flores is a 85 year old year old male patient being evaluated today for a Lab INR. Patient is currently on the following anticoagulant(s) Warfarin. Labs PT INR (no units) Date Value 05/15/2021 2.3 04/17/2021 1.9 03/13/2021 Test sent to [facility]. INR (no units) Date Value 06/12/2021 3.5 Creatinine (mg/dL) Date Value 03/13/2021 0.80 08/28/2020 0.83 Bilirubin, Total (mg/dL) Date Value 03/13/2021 0.5 ALT (U/L) Date Value 03/13/2021 24 AST (U/L) Date Value 03/13/2021 24 CrCl cannot be calculated (Unknown ideal weight.). ALLERGIES No Known Allergies Indication for Warfarin: USP current use of anticoagulant Paroxysmal atrial fibrillation (hcc) Anticoagulation Episode Summary Current INR goal: 2.0-3.0 Assessment: INR result of 3.5 is SUPRAtherapeutic due to: No obvious cause Plan: Called and spoke to patient/caregiver Advised patient to hold 1 dose then continue current regimen Next lab INR check scheduled on 07/03 in [place]. Patient verbalizes understanding of the plan. Patient denies need for refills. Coretta Jalloh RPh Clinical Pharmacist, Pharmacy Anticoagulation Clinic Pharmacy Anticoagulation Clinic Pager: [phone] . * Telephone Encounter - Rosie Cruz Ma - 06/12/2021 3:08 PM EDT Pt's INR results have finalized. Routing to pharm to review and advise. Rosie Cruz Ma documented in this encounterDetwiler [facility] Hospital12-21-2020 History of Present illness Narrative* [...] 12, 2020 5:01 PM [facility] Author Inderjit Gillespie [facility] Note Date/Time September 01, 2024 10:2 5am [facility] Medical Records Department [address] [place] [address] Emergency Department Summary 09/01/24 MR#: [id number] Acct: [id number] Name: ROBY FLORES Rep #:[id number] : [...] shoulders elbows and wrist. 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 Neurologically he is awake alert. Answering [...] 87.5 H Lymph % (Auto) 4.8 L [place] % (Auto) 5.7 Eos % (Auto) 1.2 [...] Clarity Clear Urine pH 8.0 Ur Specific [place] 1.010 Urine Protein 15 H Urine Glucose [...] No fracture or dislocation present. Reading Location: [facility]--[address] 09/01/24 09:05 IMPRESSION: Cerebral atrophy. Mucosal thickening of the ethmoid sinuses as well as opacification of the left maxillary sinus. Reading Location: [facility]-IR-1 Chest X-Ray 09/01/24 09:25 IMPRESSION: No acute abnormality is seen. Reading Location: [facility]-IR-1 Chest x-ray, 2 views, AP and [...] to thrive Disposition Disposition: Acute Care Hospital [facility] What to do if you have Problems For any increased pain, shortness of breath, bleeding, nausea or vomiting, chestpain, or any unexpected problems, contact your Primary Care Provider. Call [facility] ([phone]) or report to the closest Emergency Room. Call 911 if necessary. 09/01/24 1025 <Electronically signed by Inderjit Gillespie MD> Cosigner Signature (if applicable): CC: Dr. Stas Mora MD ~ Signed [facility] Work Phone: Evaluation + Plan note No data available for this section [facility] Evaluation note* Diagnosis USP current use of anticoagulant- Primary Long-term (current) use of anticoagulants Paroxysmal atrial fibrillation (HCC) Atrial fibrillation [facility] Diagnosis USP current use of anticoagulant- Primary Long-term (current) use of anticoagulants Paroxysmal atrial fibrillation (HCC) Atrial fibrillation [facility]* Diagnosis Essential hypertension, benign- Primary Atherosclerosis 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, unspecified vessel or lesion type, unspecified whether [place] or transplanted heart Paroxysmal atrial fibrillation (HCC) Atrial fibrillation Primary osteoarthritis of both knees Primary localized osteoarthrosis, lower leg [facility] Diagnosis Atherosclerosis 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, unspecified vessel or lesion type, unspecified whether [place] or transplanted heart- Primary Essential hypertension, benign [facility]* Diagnosis 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 use of anticoagulant- Primary Long-term (current) use of anticoagulants Paroxysmal atrial fibrillation (HCC) Atrial fibrillation [facility] Diagnosis Elevated INR- Primary Abnormal coagulation profile [facility]* Diagnosis USP current use of anticoagulant- Primary Long-term (current) use of anticoagulants Paroxysmal atrial fibrillation (HCC) Atrial fibrillation [facility]* Diagnosis Encounter for Medicare annual wellness exam- Primary Routine general medical examination at a health care facility Paroxysmal atrial fibrillation (HCC) Atrial fibrillation Essential hypertension, benign [facility]* Diagnosis 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 use of anticoagulant- Primary Long-term (current) use of anticoagulants Encounter for monitoring Coumadin therapy Encounter for therapeutic drug monitoring documented [facility] [place] [facility]* Diagnosis 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 use of anticoagulant- Primary Long-term (current) use of anticoagulants Paroxysmal atrial fibrillation (HCC) Atrial fibrillation documented in this encounter [facility] [place] [facility]* Diagnosis 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 use of anticoagulant- Primary Long-term (current) use of anticoagulants Paroxysmal atrial fibrillation (HCC) Atrial fibrillation documented [facility] this [facility] [place] [facility]* Diagnosis Onset Date Resolution Status Chronic anticoagulation acut e TIA (transient ischemic attack) acute CAD (coronary artery disease) [facility] Work Phone: Evaluation note* Diagnosis Onset Date Resolution Status Chronic anticoagulation acut e Stroke-like symptoms acute TIA (transient ischemic attack) acute CAD (coronary artery disease) [facility] Work Phone: Evaluation note* Diagnosis Hospital discharge follow-up- Primary Other follow-up examination Encounter for immunization Need for other specified prophylactic vaccination against single bacterial disease TIA (transient ischemic attack) Unspecified transient cerebral ischemia Thyroid nodule Nontoxic uninodular goiter Essential hypertension, benign Paroxysmal atrial fibrillation (HCC) Atrial fibrillation Atherosclerosis 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, unspecified vessel or lesion type, unspecified whether [place] or transplanted heart documented in this encounter [facility] [place] [facility]* Diagnosis USP current use of anticoagulant- Primary Long-term (current) use of anticoagulants Paroxysmal atrial fibrillation (HCC) Atrial fibrillation documented in this encounter [facility] [place] [facility]* Diagnosis 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 use of anticoagulant- Primary Long-term (current) use of anticoagulants Paroxysmal atrial fibrillation (HCC) Atrial fibrillation [facility] [place] [facility]* Diagnosis USP current use of anticoagulant- Primary Long-term (current) use of anticoagulants Paroxysmal atrial fibrillation (HCC) Atrial fibrillation documented in this encounter [facility] [place] [facility]* Diagnosis Encounter for Medicare annual wellness exam- Primary Routine general medical examination at a health care facility Paroxysmal atrial fibrillation (HCC) Atrial fibrillation Essential hypertension, benign Hyperlipidemia, unspecified hyperlipidemia type documented in this encounter [facility] [place] [facility]* Diagnosis 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 use of anticoagulant- Primary Long-term (current) use of anticoagulants Paroxysmal atrial fibrillation (HCC) Atrial fibrillation documented in this encounter [facility] [place] [facility]* Diagnosis USP current use of anticoagulant- Primary Long-term (current) use of anticoagulants Paroxysmal atrial fibrillation (HCC) Atrial fibrillation documented in this encounter [facility] [place] [facility]* Diagnosis 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 use of anticoagulant- Primary Long-term (current) use of anticoagulants Paroxysmal atrial fibrillation (HCC) Atrial fibrillation [facility] [place] [facility]* Diagnosis USP current use of anticoagulant- Primary Long-term (current) use of anticoagulants Paroxysmal atrial fibrillation (HCC) Atrial fibrillation documented in this encounter [facility] [place] noteNo assessment information availableWOur Lady of Mer[facility] Work Phone: Evaluation note* Diagnosis 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 use of anticoagulant- Primary Long-term (current) use of anticoagulants Paroxysmal atrial fibrillation (HCC) Atrial fibrillation [facility] [place] [facility]* Diagnosis Cerebral infarction, unspecified mechanism (HCC)- Primary Generalized weakness Other malaise and fatigue Speech disturbance, unspecified type Hyperlipidemia, unspecified hyperlipidemia type Essential hypertension, benign Paroxysmal atrial fibrillation (HCC) Atrial fibrillation [facility] [place] [facility]* Diagnosis Cerebral infarction, unspecified mechanism (HCC) documented in this encounter [facility] [place] [facility]* Diagnosis USP current use of anticoagulant- Primary Long-term (current) use of anticoagulants Paroxysmal atrial fibrillation (HCC) Atrial fibrillation [facility] [place] [facility]* Diagnosis Essential hypertension, benign- Primary Paroxysmal atrial fibrillation (HCC) Atrial fibrillation Atherosclerosis 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, unspecified vessel or lesion type, unspecified whether [place] or transplanted heart Hyperlipidemia, unspecified hyperlipidemia type History of stroke with 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 Speech disturbance, unspecified type documented in this encounter [facility] [place] [facility]* Diagnosis Abnormal CBC- Primary Other abnormal blood chemistry documented in this encounter [facility] [place] [facility]* Diagnosis 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 use of anticoagulant- Primary Long-term (current) use of anticoagulants Paroxysmal atrial fibrillation (HCC) Atrial fibrillation documented in this encounter [facility] [place] [facility]* Diagnosis USP current use of anticoagulant- Primary Long-term (current) use of anticoagulants Paroxysmal atrial fibrillation (HCC) Atrial fibrillation documented in this encounter [facility] [place] [facility]* Diagnosis USP current use of anticoagulant- Primary Long-term (current) use of anticoagulants Paroxysmal atrial fibrillation (HCC) Atrial fibrillation documented in this encounter [facility] [place] [facility]* Diagnosis USP current use of anticoagulant- Primary Long-term (current) use of anticoagulants Paroxysmal atrial fibrillation (HCC) Atrial fibrillation documented in this encounter [facility] [place] [facility]* Diagnosis 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, psychotic disturbance, mood disturbance, or anxiety (HCC)- Primary Essential hypertension, benign Paroxysmal atrial fibrillation (HCC) Atrial fibrillation documented in this encounter [facility] [place] [facility]* Diagnosis Edema of both lower legs- Primary [facility] [place] [facility]* Diagnosis 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 use of anticoagulant- Primary Long-term (current) use of anticoagulants Paroxysmal atrial fibrillation (HCC) Atrial fibrillation documented in this encounter [facility] [place] [facility]* Diagnosis USP current use of anticoagulant Long-term (current) use of anticoagulants Paroxysmal atrial fibrillation (HCC) Atrial fibrillation documented in this encounter [facility] [place] [facility]* Diagnosis Essential hypertension, benign- Primary Hyperlipidemia, unspecified hyperlipidemia type Edema of both lower legs Paroxysmal atrial fibrillation (HCC) Atrial fibrillation History of stroke with 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, psychotic disturbance, mood disturbance, or anxiety (HCC) Urinary frequency Abnormal CBC Other abnormal blood chemistry documented in this encounter [facility] [place] [facility]* Diagnosis USP current use of anticoagulant- Primary Long-term (current) use of anticoagulants Paroxysmal atrial fibrillation (HCC) Atrial fibrillation documented in this encounter [facility] [place] [facility]* Diagnosis USP current use of anticoagulant- Primary Long-term (current) use of anticoagulants Paroxysmal atrial fibrillation (HCC) Atrial fibrillation documented in this encounter [facility] [place] [facility]* Diagnosis Left hip pain Pain in joint, pelvic region and thigh documented in this encounter [facility] [place] [facility]* Diagnosis 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 use of anticoagulant- Primary Long-term (current) use of anticoagulants Paroxysmal atrial fibrillation (HCC) Atrial fibrillation documented in this encounter [facility] [place] [facility]* Diagnosis Acute right-sided low back pain, unspecified whether sciatica present documented in this encounter [facility] [place] [facility]* Diagnosis Paroxysmal atrial fibrillation (HCC)- Primary Atrial fibrillation documented in this encounter [facility] [place] [facility]* Diagnosis 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 use of anticoagulant- Primary Long-term (current) use of anticoagulants Paroxysmal atrial fibrillation (HCC) Atrial fibrillation documented in this encounter [facility] [place] [facility]* Diagnosis USP current use of anticoagulant- Primary Long-term (current) use of anticoagulants Paroxysmal atrial fibrillation (HCC) Atrial fibrillation documented in this encounter [facility] [place] [facility]* Diagnosis Dementia, unspecified dementia severity, unspecified dementia type, unspecified whether behavioral, psychotic, or mood disturbance or anxiety (HCC)- Primary [facility]* Diagnosis 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 use of anticoagulant- Primary Long-term (current) use of anticoagulants Paroxysmal atrial fibrillation (HCC) Atrial fibrillation documented in this encounter [facility] note* Diagnosis Dementia, unspecified dementia severity, unspecified [...] and musculoskeletal systems documented in this encounter [facility] note* Diagnosis Cognitive impairment, mild, so stated Mild cognitive impairment, so stated documented in this encounter [facility] note* Diagnosis Essential hypertension, benign- Primary Hyperlipidemia, unspecified hyperlipidemia type Atherosclerosis 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, unspecified vessel or lesion type, unspecified whether [place] or transplanted heart Paroxysmal atrial fibrillation (HCC) Atrial fibrillation Edema of both lower legs History of stroke with 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 Dementia, unspecified dementia severity, unspecified dementia type, unspecified whether behavioral, psychotic, or mood disturbance or anxiety (HCC) documented in this encounter [facility] note* 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) Paralysis agitans documented in this encounter [facility] note* Diagnosis Bursitis of right elbow, unspecified bursa- Primary documented in this encounter [facility] note* Diagnosis Moderate dementia without behavioral disturbance, psychotic disturbance, mood disturbance, or anxiety, unspecified dementia type (HCC)- Primary Hallucinations Screening for depression Encounter for screening examination for other mental health and behavioral disorders documented in this encounter [facility] for referral (narrative)* Diagnostic Procedure Only (Routine) - Authorized Specialty Diagnoses / Procedures Referred By Jennifer gomez Referred To Contact US IMAGING Diagnoses Thyroid nodule Procedures US THYROID/PARATHYROID US SOFT TISSUE HEAD & NECK REAL TIME IMGE Stas Queen MD [address] [place] [address] Us Imaging Referral ID Status Reason Start Date Expiration Date Visits Requested Visits Authorized [id number] Authorized Auto-Generat ed Referral 12/26/2021 01/25/2023 1 1 [facility] for referral (narrative)* Diagnostic Procedure Only (Urgent) - Closed Specialty Diagnoses / Procedures Referred By Contac t Referred To Contact XR IMAGING Diagnoses Left hip pain Procedures XR HIP GENERAL 3V PELV/AP/LAT LEFT RADEX HIP UNILATERAL WITH PELVIS 2-3 VIEWS Jenna Fitzpatrick APRN.SUPERVISOR KENN[address] [place] [address] [place] [address] Referral ID Status Reason Start Date Expiration Date V isits Requested Visits Authorized [id number] Closed Auto-Generate d Referral 05/21/2022 06/20/2023 1 1 [facility] for referral (narrative)No reason for referral information availableWOur Lady of [facility] Phone[facility]* Diagnostic Procedure Only (Urgent) - Closed Specialty Diagnoses / Procedures Referred By Contac t Referred To Contact XR IMAGING Diagnoses Left hip pain Procedures XR HIP GENERAL 3V PELV/AP/LAT LEFT RADEX HIP UNILATERAL WITH PELVIS 2-3 VIEWS Jenna Fitzpatrick, JETHRO.SUPERVISOR KENNEL [address] [place] [address] [place] [address] Referral ID Status Reason Start Date Expiration Date V isits Requested Visits Authorized [id number] Closed Auto-Generate d Referral 05/21/2022 06/20/2023 1 1 [facility] for visit Narrative* MRI/CT (Routine) - Closed Specialty Diagnoses / Procedures Referred By Contac t Referred To Contact MR IMAGING Diagnoses Cognitive impairment, mild, so stated Procedures MRI BRAIN W QUANT WO IVCON MRI BRAIN BRAIN STEM W/O CONTRAST MATERIAL Luciana Cisneros MD [address] [place] [address] Phone: tel: fax: [place] [address] Referral ID Status Reason Start Date Expiration Date V isits Requested Visits Authorized [id number] Closed Auto-Generate d Referral 05/11/2024 07/10/2024 1 1 [facility] Summary Purpose Family History No [...] Will Yes December 21 6:17pm Power of Sterile Processing Technologist Yes December 21 6:17pm Name of Medical Power of Sterile Processing Technologist IRAJ HULL , DAUGHTER December 21, 2021 6:17pm Advance Directive Response Recorded Date/ Time Name of Medical Power of Sterile Processing Technologist Anabella Hull December 21, 2021 8:06pm Living Will Yes December 21 8:06pm Power of Sterile Processing Technologist Yes December 21 8:06pm Advance Directive Response Recorded Date/ Time Living Will Yes February 10, 023 3:17pm Power of Sterile Processing Technologist Yes February 10, 2023 3:17pm Name of Medical Power of Sterile Processing Technologist daughter-yomi hull February 10, 2023 3:17pm Advance Directive Response Recorded Date/ Time Do you have a Healthcare Power of Sterile Processing Technologist? Yes September 01, 2024 7:36am Name of Medical Power of Sterile Processing Technologist anabella hull September 01, 2024 7:36am Advance Directive Response Recorded Date/ Time Do you have a Healthcare Power of Sterile Processing Technologist? Yes September 01, 2024 12:00pm Name of Medical Power of Sterile Processing Technologist anabella hull September 01, 2024 12:00pm Chief [...] LAB WORK September 28, 2024 5:00a m SKILLED NURSING LAB WORK September 29, 2024 5: 00am Admission H&P Exam September 30, 2024 5:50 pm SKILLED NURSING LAB WORK October 05, 2024 5: 00am SKILLED NURSING LAB WORK October 06, 2024 5: 00am [...] LAB WORK September 28, 2024 5:00a m SKILLED NURSING LAB WORK September 29, 2024 5: 00am Admission H&P Exam September 30, 2024 5:50 pm SKILLED NURSING LAB WORK October 05, 2024 5: 00am SKILLED NURSING LAB WORK October 06, 2024 5: 00am [...] LAB WORK September 28, 2024 5:00a m SKILLED NURSING LAB WORK September 29, 2024 5: 00am Admission H&P Exam September 30, 2024 5:50 pm SKILLED NURSING LAB WORK October 05, 2024 5: 00am SKILLED NURSING LAB WORK October 06, 2024 5: 00am [...] LAB WORK September 28, 2024 5:00a m SKILLED NURSING LAB WORK September 29, 2024 5: 00am Admission H&P Exam September 30, 2024 5:50 pm SKILLED NURSING LAB WORK October 05, 2024 5: 00am SKILLED NURSING LAB WORK October 06, 2024 5: 00am [...] COMPLEX 45 MINS Luciana Cisneros MD [address] [place] [address] [facility] [address] [place] [id number] Referral ID Status Reason Start Date Expiration Date Visits Requested Visits Authorized [id number] Pending Review Auto-Generat ed Referral 04/27/2024 04/27/2025 1 1 Specialty Diagnoses / Procedures Referred By Jennifer gomez Referred To Contact MR IMAGING Diagnoses Cognitive impairment, mild, so stated Procedures MRI BRAIN W QUANT WO IVCON MRI BRAIN BRAIN STEM W/O CONTRAST MATERIAL Luciana Cisneros [place] [address] [place] [address] [place] [id number] Referral ID Status Reason Start Date Expiration Date Visits Requested Visits Authorized [id number] Pending Review Auto-Generat ed Referral 04/27/2024 05/27/2025 1 1 Specialty Diagnoses / Procedures Referred By Contac t Referred To Contact Gerontology Diagnoses Dementia, unspecified dementia severity, unspecified dementia type, unspecified whether behavioral, psychotic, or mood disturbance or anxiety (HCC) Procedures CONSULT TO GERIATRICS OFFICE/OUTPATIENT [facility] MDM 60 MINUTES Stas Mora MD [address] [place] [address] Referral ID Status Reason Start Date Expiration Date Visits Requested Visits Authorized [id number] Authorized PCP Requested Referral 04/25/2024 04/25/2025 1 1 Specialty Diagnoses / Procedures Referred By Contac t Referred To Contact MR IMAGING Diagnoses Cerebral infarction, unspecified mechanism (HCC) Procedures MRI BRAIN WO IVCON MRI BRAIN BRAIN STEM W/O CONTRAST MATERIAL Stas Mora MD [address] [place] [address] Mr Imaging [id number] Referral ID Status Reason Start Date Expiration Date Visits Requested Visits Authorized [id number] Pending Review Auto-Genera eli Referral Patient Cleared - Admin/Chair man/Directo r advise to proceed or did not respond 3 03/17/2024 1 1 Additional Source Comments (unrecognized sect ion and content) No Status Records FoundNo Status Records FoundNo Status Records FoundNo Status Records FoundNo Status Records FoundNo Status Records FoundNo Status Records Found INFORMATION SOURCE (unrecogn ized section and content) DATE CREATED AUTHOR 09/11/2017 [facility] DATE CREATED AUTHOR AUTHOR'S ORGANIZ ATION 09/11/2017 [facility] DATE CREATED AUTHOR AUTHOR'S ORGANIZ ATION 09/15/2017 [facility] DATE CREATED AUTHOR AUTHOR'S ORGANIZ ATION 08/12/2023 [facility] ([place]) DATE CREATED AUTHOR AUTHOR'S ORGANIZ ATION 05/24/2024 [facility] DATE CREATED AUTHOR AUTHOR'S ORGANIZ ATION 11/19/2024 [facility] DATE CREATED AUTHOR AUTHOR'S ORGANIZ ATION 11/24/2024 [facility] Source Comments (unrecognize d section and content) In the event this informatio n is protected by the Federal Confidentiality of Alcohol and Drug Abuse Patient Records regulations: The Federal rules restrict any use of the information to criminally investigate or prosecute any alcohol or drug abuse patient.[facility] the event this information is protected by the Federal Confidentiality of Alcohol and Drug Abuse Patient Records regulations: The Federal rules restrict any use of the information to criminally investigate or prosecute any alcohol or drug abuse patient.[facility]In the event this information is protected by the Federal Confidentiality of Alcohol and Drug Abuse Patient Records regulations: The Federal rules restrict any use of the information to criminally investigate or prosecute any alcohol or drug abuse patient.[facility] HospitalIn the event this information is protected by the Federal Confidentiality of Alcohol and Drug Abuse Patient Records regulations: The Federal rules restrict any use of the information to criminally investigate or prosecute any alcohol or drug abuse patient.[facility] HospitalIn the event this information is protected by the Federal Confidentiality of Alcohol and Drug Abuse Patient Records regulations: The Federal rules restrict any use of the information to criminally investigate or prosecute any alcohol or drug abuse patient.[facility] HospitalIn the event this information is protected by the Federal Confidentiality of Alcohol and Drug Abuse Patient Records regulations: The Federal rules restrict any use of the information to criminally investigate or prosecute any alcohol or drug abuse patient.[facility] HospitalIn the event this information is protected by the Federal Confidentiality of Alcohol and Drug Abuse Patient Records regulations: The Federal rules restrict any use of the information to criminally investigate or prosecute any alcohol or drug abuse patient.[facility] HospitalIn the event this information is protected by the Federal Confidentiality of Alcohol and Drug Abuse Patient Records regulations: The Federal rules restrict any use of the information to criminally investigate or prosecute any alcohol or drug abuse patient.[facility] HospitalIn the event this information is protected by the Federal Confidentiality of Alcohol and Drug Abuse Patient Records regulations: The Federal rules restrict any use of the information to criminally investigate or prosecute any alcohol or drug abuse patient.[facility] HospitalIn the event this information is protected by the Federal Confidentiality of Alcohol and Drug Abuse Patient Records regulations: The Federal rules restrict any use of the information to criminally investigate or prosecute any alcohol or drug abuse patient.[facility] HospitalIn the event this information is protected by the Federal Confidentiality of Alcohol and Drug Abuse Patient Records regulations: The Federal rules restrict any use of the information to criminally investigate or prosecute any alcohol or drug abuse patient.[facility] HospitalIn the event this information is protected by the Federal Confidentiality of Alcohol and Drug Abuse Patient Records regulations: The Federal rules restrict any use of the information to criminally investigate or prosecute any alcohol or drug abuse patient.[facility] HospitalIn the event this information is protected by the Federal Confidentiality of Alcohol and Drug Abuse Patient Records regulations: The Federal rules restrict any use of the information to criminally investigate or prosecute any alcohol or drug abuse patient.[facility] HospitalIn the event this information is protected by the Federal Confidentiality of Alcohol and Drug Abuse Patient Records regulations: The Federal rules restrict any use of the information to criminally investigate or prosecute any alcohol or drug abuse patient.[facility] HospitalIn the event this information is protected by the Federal Confidentiality of Alcohol and Drug Abuse Patient Records regulations: The Federal rules restrict any use of the information to criminally investigate or prosecute any alcohol or drug abuse patient.[facility] HospitalIn the event this information is protected by the Federal Confidentiality of Alcohol and Drug Abuse Patient Records regulations: The Federal rules restrict any use of the information to criminally investigate or prosecute any alcohol or drug abuse patient.[facility] HospitalIn the event this information is protected by the Federal Confidentiality of Alcohol and Drug Abuse Patient Records regulations: The Federal rules restrict any use of the information to criminally investigate or prosecute any alcohol or drug abuse patient.[facility] HospitalIn the event this information is protected by the Federal Confidentiality of Alcohol and Drug Abuse Patient Records regulations: The Federal rules restrict any use of the information to criminally investigate or prosecute any alcohol or drug abuse patient.[facility] HospitalIn the event this information is protected by the Federal Confidentiality of Alcohol and Drug Abuse Patient Records regulations: The Federal rules restrict any use of the information to criminally investigate or prosecute any alcohol or drug abuse patient.[facility] HospitalIn the event this information is protected by the Federal Confidentiality of Alcohol and Drug Abuse Patient Records regulations: The Federal rules restrict any use of the information to criminally investigate or prosecute any alcohol or drug abuse patient.[facility] HospitalIn the event this information is protected by the Federal Confidentiality of Alcohol and Drug Abuse Patient Records regulations: The Federal rules restrict any use of the information to criminally investigate or prosecute any alcohol or drug abuse patient.[facility] HospitalIn the event this information is protected by the Federal Confidentiality of Alcohol and Drug Abuse Patient Records regulations: The Federal rules restrict any use of the information to criminally investigate or prosecute any alcohol or drug abuse patient.[facility] HospitalIn the event this information is protected by the Federal Confidentiality of Alcohol and Drug Abuse Patient Records regulations: The Federal rules restrict any use of the information to criminally investigate or prosecute any alcohol or drug abuse patient.[facility] HospitalIn the event this information is protected by the Federal Confidentiality of Alcohol and Drug Abuse Patient Records regulations: The Federal rules restrict any use of the information to criminally investigate or prosecute any alcohol or drug abuse patient.[facility] HospitalIn the event this information is protected by the Federal Confidentiality of Alcohol and Drug Abuse Patient Records regulations: The Federal rules restrict any use of the information to criminally investigate or prosecute any alcohol or drug abuse patient.[facility] HospitalIn the event this information is protected by the Federal Confidentiality of Alcohol and Drug Abuse Patient Records regulations: The Federal rules restrict any use of the information to criminally investigate or prosecute any alcohol or drug abuse patient.[facility] HospitalIn the event this information is protected by the Federal Confidentiality of Alcohol and Drug Abuse Patient Records regulations: The Federal rules restrict any use of the information to criminally investigate or prosecute any alcohol or drug abuse patient.[facility] HospitalIn the event this information is protected by the Federal Confidentiality of Alcohol and Drug Abuse Patient Records regulations: The Federal rules restrict any use of the information to criminally investigate or prosecute any alcohol or drug abuse patient.[facility] HospitalIn the event this information is protected by the Federal Confidentiality of Alcohol and Drug Abuse Patient Records regulations: The Federal rules restrict any use of the information to criminally investigate or prosecute any alcohol or drug abuse patient.[facility] HospitalIn the event this information is protected by the Federal Confidentiality of Alcohol and Drug Abuse Patient Records regulations: The Federal rules restrict any use of the information to criminally investigate or prosecute any alcohol or drug abuse patient.[facility] HospitalIn the event this information is protected by the Federal Confidentiality of Alcohol and Drug Abuse Patient Records regulations: The Federal rules restrict any use of the information to criminally investigate or prosecute any alcohol or drug abuse patient.[facility] HospitalIn the event this information is protected by the Federal Confidentiality of Alcohol and Drug Abuse Patient Records regulations: The Federal rules restrict any use of the information to criminally investigate or prosecute any alcohol or drug abuse patient.[facility] HospitalIn the event this information is protected by the Federal Confidentiality of Alcohol and Drug Abuse Patient Records regulations: The Federal rules restrict any use of the information to criminally investigate or prosecute any alcohol or drug abuse patient.[facility] HospitalIn the event this information is protected by the Federal Confidentiality of Alcohol and Drug Abuse Patient Records regulations: The Federal rules restrict any use of the information to criminally investigate or prosecute any alcohol or drug abuse patient.[facility] HospitalIn the event this information is protected by the Federal Confidentiality of Alcohol and Drug Abuse Patient Records regulations: The Federal rules restrict any use of the information to criminally investigate or prosecute any alcohol or drug abuse patient.[facility] HospitalIn the event this information is protected by the Federal Confidentiality of Alcohol and Drug Abuse Patient Records regulations: The Federal rules restrict any use of the information to criminally investigate or prosecute any alcohol or drug abuse patient.[facility] HospitalIn the event this information is protected by the Federal Confidentiality of Alcohol and Drug Abuse Patient Records regulations: The Federal rules restrict any use of the information to criminally investigate or prosecute any alcohol or drug abuse patient.[facility] HospitalIn the event this information is protected by the Federal Confidentiality of Alcohol and Drug Abuse Patient Records regulations: The Federal rules restrict any use of the information to criminally investigate or prosecute any alcohol or drug abuse patient.[facility] HospitalIn the event this information is protected by the Federal Confidentiality of Alcohol and Drug Abuse Patient Records regulations: The Federal rules restrict any use of the information to criminally investigate or prosecute any alcohol or drug abuse patient.[facility] HospitalIn the event this information is protected by the Federal Confidentiality of Alcohol and Drug Abuse Patient Records regulations: The Federal rules restrict any use of the information to criminally investigate or prosecute any alcohol or drug abuse patient.[facility] HospitalIn the event this information is protected by the Federal Confidentiality of Alcohol and Drug Abuse Patient Records regulations: The Federal rules restrict any use of the information to criminally investigate or prosecute any alcohol or drug abuse patient.[facility] HospitalIn the event this information is protected by the Federal Confidentiality of Alcohol and Drug Abuse Patient Records regulations: The Federal rules restrict any use of the information to criminally investigate or prosecute any alcohol or drug abuse patient.[facility] HospitalIn the event this information is protected by the Federal Confidentiality of Alcohol and Drug Abuse Patient Records regulations: The Federal rules restrict any use of the information to criminally investigate or prosecute any alcohol or drug abuse patient.[facility] HospitalIn the event this information is protected by the Federal Confidentiality of Alcohol and Drug Abuse Patient Records regulations: The Federal rules restrict any use of the information to criminally investigate or prosecute any alcohol or drug abuse patient.[facility] HospitalIn the event this information is protected by the Federal Confidentiality of Alcohol and Drug Abuse Patient Records regulations: The Federal rules restrict any use of the information to criminally investigate or prosecute any alcohol or drug abuse patient.[facility] HospitalIn the event this information is protected by the Federal Confidentiality of Alcohol and Drug Abuse Patient Records regulations: The Federal rules restrict any use of the information to criminally investigate or prosecute any alcohol or drug abuse patient.[facility] HospitalIn the event this information is protected by the Federal Confidentiality of Alcohol and Drug Abuse Patient Records regulations: The Federal rules restrict any use of the information to criminally investigate or prosecute any alcohol or drug abuse patient.[facility] HospitalIn the event this information is protected by the Federal Confidentiality of Alcohol and Drug Abuse Patient Records regulations: The Federal rules restrict any use of the information to criminally investigate or prosecute any alcohol or drug abuse patient.[facility] HospitalIn the event this information is protected by the Federal Confidentiality of Alcohol and Drug Abuse Patient Records regulations: The Federal rules restrict any use of the information to criminally investigate or prosecute any alcohol or drug abuse patient.[facility] HospitalIn the event this information is protected by the Federal Confidentiality of Alcohol and Drug Abuse Patient Records regulations: The Federal rules restrict any use of the information to criminally investigate or prosecute any alcohol or drug abuse patient.[facility] HospitalIn the event this information is protected by the Federal Confidentiality of Alcohol and Drug Abuse Patient Records regulations: The Federal rules restrict any use of the information to criminally investigate or prosecute any alcohol or drug abuse patient.[facility] HospitalIn the event this information is protected by the Federal Confidentiality of Alcohol and Drug Abuse Patient Records regulations: The Federal rules restrict any use of the information to criminally investigate or prosecute any alcohol or drug abuse patient.[facility] HospitalIn the event this information is protected by the Federal Confidentiality of Alcohol and Drug Abuse Patient Records regulations: The Federal rules restrict any use of the information to criminally investigate or prosecute any alcohol or drug abuse patient.[facility] HospitalIn the event this information is protected by the Federal Confidentiality of Alcohol and Drug Abuse Patient Records regulations: The Federal rules restrict any use of the information to criminally investigate or prosecute any alcohol or drug abuse patient.[facility] HospitalIn the event this information is protected by the Federal Confidentiality of Alcohol and Drug Abuse Patient Records regulations: The Federal rules restrict any use of the information to criminally investigate or prosecute any alcohol or drug abuse patient.[facility] HospitalIn the event this information is protected by the Federal Confidentiality of Alcohol and Drug Abuse Patient Records regulations: The Federal rules restrict any use of the information to criminally investigate or prosecute any alcohol or drug abuse patient.[facility] HospitalIn the event this information is protected by the Federal Confidentiality of Alcohol and Drug Abuse Patient Records regulations: The Federal rules restrict any use of the information to criminally investigate or prosecute any alcohol or drug abuse patient.[facility] HospitalIn the event this information is protected by the Federal Confidentiality of Alcohol and Drug Abuse Patient Records regulations: The Federal rules restrict any use of the information to criminally investigate or prosecute any alcohol or drug abuse patient.[facility] HospitalIn the event this information is protected by the Federal Confidentiality of Alcohol and Drug Abuse Patient Records regulations: The Federal rules restrict any use of the information to criminally investigate or prosecute any alcohol or drug abuse patient.[facility] HospitalIn the event this information is protected by the Federal Confidentiality of Alcohol and Drug Abuse Patient Records regulations: The Federal rules restrict any use of the information to criminally investigate or prosecute any alcohol or drug abuse patient.[facility] HospitalIn the event this information is protected by the Federal Confidentiality of Alcohol and Drug Abuse Patient Records regulations: The Federal rules restrict any use of the information to criminally investigate or prosecute any alcohol or drug abuse patient.[facility] HospitalIn the event this information is protected by the Federal Confidentiality of Alcohol and Drug Abuse Patient Records regulations: The Federal rules restrict any use of the information to criminally investigate or prosecute any alcohol or drug abuse patient.[facility] HospitalIn the event this information is protected by the Federal Confidentiality of Alcohol and Drug Abuse Patient Records regulations: The Federal rules restrict any use of the information to criminally investigate or prosecute any alcohol or drug abuse patient.[facility] HospitalIn the event this information is protected by the Federal Confidentiality of Alcohol and Drug Abuse Patient Records regulations: The Federal rules restrict any use of the information to criminally investigate or prosecute any alcohol or drug abuse patient.[facility] HospitalIn the event this information is protected by the Federal Confidentiality of Alcohol and Drug Abuse Patient Records regulations: The Federal rules restrict any use of the information to criminally investigate or prosecute any alcohol or drug abuse patient.[facility] HospitalIn the event this information is protected by the Federal Confidentiality of Alcohol and Drug Abuse Patient Records regulations: The Federal rules restrict any use of the information to criminally investigate or prosecute any alcohol or drug abuse patient.[facility] HospitalIn the event this information is protected by the Federal Confidentiality of Alcohol and Drug Abuse Patient Records regulations: The Federal rules restrict any use of the information to criminally investigate or prosecute any alcohol or drug abuse patient.[facility] HospitalIn the event this information is protected by the Federal Confidentiality of Alcohol and Drug Abuse Patient Records regulations: The Federal rules restrict any use of the information to criminally investigate or prosecute any alcohol or drug abuse patient.[facility] HospitalIn the event this information is protected by the Federal Confidentiality of Alcohol and Drug Abuse Patient Records regulations: The Federal rules restrict any use of the information to criminally investigate or prosecute any alcohol or drug abuse patient.[facility] HospitalIn the event this information is protected by the Federal Confidentiality of Alcohol and Drug Abuse Patient Records regulations: The Federal rules restrict any use of the information to criminally investigate or prosecute any alcohol or drug abuse patient.[facility] HospitalIn the event this information is protected by the Federal Confidentiality of Alcohol and Drug Abuse Patient Records regulations: The Federal rules restrict any use of the information to criminally investigate or prosecute any alcohol or drug abuse patient.[facility] HospitalIn the event this information is protected by the Federal Confidentiality of Alcohol and Drug Abuse Patient Records regulations: The Federal rules restrict any use of the information to criminally investigate or prosecute any alcohol or drug abuse patient.[facility] HospitalIn the event this information is protected by the Federal Confidentiality of Alcohol and Drug Abuse Patient Records regulations: The Federal rules restrict any use of the information to criminally investigate or prosecute any alcohol or drug abuse patient.[facility] HospitalIn the event this information is protected by the Federal Confidentiality of Alcohol and Drug Abuse Patient Records regulations: The Federal rules restrict any use of the information to criminally investigate or prosecute any alcohol or drug abuse patient.[facility] HospitalIn the event this information is protected by the Federal Confidentiality of Alcohol and Drug Abuse Patient Records regulations: The Federal rules restrict any use of the information to criminally investigate or prosecute any alcohol or drug abuse patient.[facility] HospitalIn the event this information is protected by the Federal Confidentiality of Alcohol and Drug Abuse Patient Records regulations: The Federal rules restrict any use of the information to criminally investigate or prosecute any alcohol or drug abuse patient.[facility] HospitalIn the event this information is protected by the Federal Confidentiality of Alcohol and Drug Abuse Patient Records regulations: The Federal rules restrict any use of the information to criminally investigate or prosecute any alcohol or drug abuse patient.[facility] HospitalIn the event this information is protected by the Federal Confidentiality of Alcohol and Drug Abuse Patient Records regulations: The Federal rules restrict any use of the information to criminally investigate or prosecute any alcohol or drug abuse patient.[facility] HospitalIn the event this information is protected by the Federal Confidentiality of Alcohol and Drug Abuse Patient Records regulations: The Federal rules restrict any use of the information to criminally investigate or prosecute any alcohol or drug abuse patient.[facility] HospitalIn the event this information is protected by the Federal Confidentiality of Alcohol and Drug Abuse Patient Records regulations: The Federal rules restrict any use of the information to criminally investigate or prosecute any alcohol or drug abuse patient.[facility] HospitalIn the event this information is protected by the Federal Confidentiality of Alcohol and Drug Abuse Patient Records regulations: The Federal rules restrict any use of the information to criminally investigate or prosecute any alcohol or drug abuse patient.[facility] HospitalIn the event this information is protected by the Federal Confidentiality of Alcohol and Drug Abuse Patient Records regulations: The Federal rules restrict any use of the information to criminally investigate or prosecute any alcohol or drug abuse patient.[facility] HospitalIn the event this information is protected by the Federal Confidentiality of Alcohol and Drug Abuse Patient Records regulations: The Federal rules restrict any use of the information to criminally investigate or prosecute any alcohol or drug abuse patient.[facility] HospitalIn the event this information is protected by the Federal Confidentiality of Alcohol and Drug Abuse Patient Records regulations: The Federal rules restrict any use of the information to criminally investigate or prosecute any alcohol or drug abuse patient.[facility] HospitalIn the event this information is protected by the Federal Confidentiality of Alcohol and Drug Abuse Patient Records regulations: The Federal rules restrict any use of the information to criminally investigate or prosecute any alcohol or drug abuse patient.[facility] HospitalIn the event this information is protected by the Federal Confidentiality of Alcohol and Drug Abuse Patient Records regulations: The Federal rules restrict any use of the information to criminally investigate or prosecute any alcohol or drug abuse patient.[facility] HospitalIn the event this information is protected by the Federal Confidentiality of Alcohol and Drug Abuse Patient Records regulations: The Federal rules restrict any use of the information to criminally investigate or prosecute any alcohol or drug abuse patient.[facility] HospitalIn the event this information is protected by the Federal Confidentiality of Alcohol and Drug Abuse Patient Records regulations: The Federal rules restrict any use of the information to criminally investigate or prosecute any alcohol or drug abuse patient.[facility] HospitalIn the event this information is protected by the Federal Confidentiality of Alcohol and Drug Abuse Patient Records regulations: The Federal rules restrict any use of the information to criminally investigate or prosecute any alcohol or drug abuse patient.[facility] HospitalIn the event this information is protected by the Federal Confidentiality of Alcohol and Drug Abuse Patient Records regulations: The Federal rules restrict any use of the information to criminally investigate or prosecute any alcohol or drug abuse patient.[facility] HospitalIn the event this information is protected by the Federal Confidentiality of Alcohol and Drug Abuse Patient Records regulations: The Federal rules restrict any use of the information to criminally investigate or prosecute any alcohol or drug abuse patient.[facility] HospitalIn the event this information is protected by the Federal Confidentiality of Alcohol and Drug Abuse Patient Records regulations: The Federal rules restrict any use of the information to criminally investigate or prosecute any alcohol or drug abuse patient.[facility] HospitalIn the event this information is protected by the Federal Confidentiality of Alcohol and Drug Abuse Patient Records regulations: The Federal rules restrict any use of the information to criminally investigate or prosecute any alcohol or drug abuse patient.[facility] HospitalIn the event this information is protected by the Federal Confidentiality of Alcohol and Drug Abuse Patient Records regulations: The Federal rules restrict any use of the information to criminally investigate or prosecute any alcohol or drug abuse patient.[facility] HospitalIn the event this information is protected by the Federal Confidentiality of Alcohol and Drug Abuse Patient Records regulations: The Federal rules restrict any use of the information to criminally investigate or prosecute any alcohol or drug abuse patient.[facility] HospitalIn the event this information is protected by the Federal Confidentiality of Alcohol and Drug Abuse Patient Records regulations: The Federal rules restrict any use of the information to criminally investigate or prosecute any alcohol or drug abuse patient.[facility] HospitalIn the event this information is protected by the Federal Confidentiality of Alcohol and Drug Abuse Patient Records regulations: The Federal rules restrict any use of the information to criminally investigate or prosecute any alcohol or drug abuse patient.[facility] HospitalIn the event this information is protected by the Federal Confidentiality of Alcohol and Drug Abuse Patient Records regulations: The Federal rules restrict any use of the information to criminally investigate or prosecute any alcohol or drug abuse patient.[facility] HospitalIn the event this information is protected by the Federal Confidentiality of Alcohol and Drug Abuse Patient Records regulations: The Federal rules restrict any use of the information to criminally investigate or prosecute any alcohol or drug abuse patient.[facility] HospitalIn the event this information is protected by the Federal Confidentiality of Alcohol and Drug Abuse Patient Records regulations: The Federal rules restrict any use of the information to criminally investigate or prosecute any alcohol or drug abuse patient.[facility] HospitalIn the event this information is protected by the Federal Confidentiality of Alcohol and Drug Abuse Patient Records regulations: The Federal rules restrict any use of the information to criminally investigate or prosecute any alcohol or drug abuse patient.[facility] HospitalIn the event this information is protected by the Federal Confidentiality of Alcohol and Drug Abuse Patient Records regulations: The Federal rules restrict any use of the information to criminally investigate or prosecute any alcohol or drug abuse patient.[facility] HospitalIn the event this information is protected by the Federal Confidentiality of Alcohol and Drug Abuse Patient Records regulations: The Federal rules restrict any use of the information to criminally investigate or prosecute any alcohol or drug abuse patient.[facility] HospitalIn the event this information is protected by the Federal Confidentiality of Alcohol and Drug Abuse Patient Records regulations: The Federal rules restrict any use of the information to criminally investigate or prosecute any alcohol or drug abuse patient.[facility] HospitalIn the event this information is protected by the Federal Confidentiality of Alcohol and Drug Abuse Patient Records regulations: The Federal rules restrict any use of the information to criminally investigate or prosecute any alcohol or drug abuse patient.[facility] HospitalIn the event this information is protected by the Federal Confidentiality of Alcohol and Drug Abuse Patient Records regulations: The Federal rules restrict any use of the information to criminally investigate or prosecute any alcohol or drug abuse patient.[facility] HospitalIn the event this information is protected by the Federal Confidentiality of Alcohol and Drug Abuse Patient Records regulations: The Federal rules restrict any use of the information to criminally investigate or prosecute any alcohol or drug abuse patient.[facility] HospitalIn the event this information is protected by the Federal Confidentiality of Alcohol and Drug Abuse Patient Records regulations: The Federal rules restrict any use of the information to criminally investigate or prosecute any alcohol or drug abuse patient.[facility] HospitalIn the event this information is protected by the Federal Confidentiality of Alcohol and Drug Abuse Patient Records regulations: The Federal rules restrict any use of the information to criminally investigate or prosecute any alcohol or drug abuse patient.[facility] HospitalIn the event this information is protected by the Federal Confidentiality of Alcohol and Drug Abuse Patient Records regulations: The Federal rules restrict any use of the information to criminally investigate or prosecute any alcohol or drug abuse patient.[facility] HospitalIn the event this information is protected by the Federal Confidentiality of Alcohol and Drug Abuse Patient Records regulations: The Federal rules restrict any use of the information to criminally investigate or prosecute any alcohol or drug abuse patient.[facility] HospitalIn the event this information is protected by the Federal Confidentiality of Alcohol and Drug Abuse Patient Records regulations: The Federal rules restrict any use of the information to criminally investigate or prosecute any alcohol or drug abuse patient.[facility] HospitalIn the event this information is protected by the Federal Confidentiality of Alcohol and Drug Abuse Patient Records regulations: The Federal rules restrict any use of the information to criminally investigate or prosecute any alcohol or drug abuse patient.[facility] HospitalIn the event this information is protected by the Federal Confidentiality of Alcohol and Drug Abuse Patient Records regulations: The Federal rules restrict any use of the information to criminally investigate or prosecute any alcohol or drug abuse patient.[facility] HospitalIn the event this information is protected by the Federal Confidentiality of Alcohol and Drug Abuse Patient Records regulations: The Federal rules restrict any use of the information to criminally investigate or prosecute any alcohol or drug abuse patient.[facility] HospitalIn the event this information is protected by the Federal Confidentiality of Alcohol and Drug Abuse Patient Records regulations: The Federal rules restrict any use of the information to criminally investigate or prosecute any alcohol or drug abuse patient.[facility] HospitalIn the event this information is protected by the Federal Confidentiality of Alcohol and Drug Abuse Patient Records regulations: The Federal rules restrict any use of the information to criminally investigate or prosecute any alcohol or drug abuse patient.[facility] HospitalIn the event this information is protected by the Federal Confidentiality of Alcohol and Drug Abuse Patient Records regulations: The Federal rules restrict any use of the information to criminally investigate or prosecute any alcohol or drug abuse patient.[facility] HospitalIn the event this information is protected by the Federal Confidentiality of Alcohol and Drug Abuse Patient Records regulations: The Federal rules restrict any use of the information to criminally investigate or prosecute any alcohol or drug abuse patient.[facility] HospitalIn the event this information is protected by the Federal Confidentiality of Alcohol and Drug Abuse Patient Records regulations: The Federal rules restrict any use of the information to criminally investigate or prosecute any alcohol or drug abuse patient.[facility] HospitalIn the event this information is protected by the Federal Confidentiality of Alcohol and Drug Abuse Patient Records regulations: The Federal rules restrict any use of the information to criminally investigate or prosecute any alcohol or drug abuse patient.[facility] HospitalIn the event this information is protected by the Federal Confidentiality of Alcohol and Drug Abuse Patient Records regulations: The Federal rules restrict any use of the information to criminally investigate or prosecute any alcohol or drug abuse patient.[facility] HospitalIn the event this information is protected by the Federal Confidentiality of Alcohol and Drug Abuse Patient Records regulations: The Federal rules restrict any use of the information to criminally investigate or prosecute any alcohol or drug abuse patient.[facility] HospitalIn the event this information is protected by the Federal Confidentiality of Alcohol and Drug Abuse Patient Records regulations: The Federal rules restrict any use of the information to criminally investigate or prosecute any alcohol or drug abuse patient.[facility] HospitalIn the event this information is protected by the Federal Confidentiality of Alcohol and Drug Abuse Patient Records regulations: The Federal rules restrict any use of the information to criminally investigate or prosecute any alcohol or drug abuse patient.[facility] HospitalIn the event this information is protected by the Federal Confidentiality of Alcohol and Drug Abuse Patient Records regulations: The Federal rules restrict any use of the information to criminally investigate or prosecute any alcohol or drug abuse patient.[facility] HospitalIn the event this information is protected by the Federal Confidentiality of Alcohol and Drug Abuse Patient Records regulations: The Federal rules restrict any use of the information to criminally investigate or prosecute any alcohol or drug abuse patient.[facility] HospitalIn the event this information is protected by the Federal Confidentiality of Alcohol and Drug Abuse Patient Records regulations: The Federal rules restrict any use of the information to criminally investigate or prosecute any alcohol or drug abuse patient.[facility] HospitalIn the event this information is protected by the Federal Confidentiality of Alcohol and Drug Abuse Patient Records regulations: The Federal rules restrict any use of the information to criminally investigate or prosecute any alcohol or drug abuse patient.[facility] HospitalIn the event this information is protected by the Federal Confidentiality of Alcohol and Drug Abuse Patient Records regulations: The Federal rules restrict any use of the information to criminally investigate or prosecute any alcohol or drug abuse patient.[facility] HospitalIn the event this information is protected by the Federal Confidentiality of Alcohol and Drug Abuse Patient Records regulations: The Federal rules restrict any use of the information to criminally investigate or prosecute any alcohol or drug abuse patient.[facility] HospitalIn the event this information is protected by the Federal Confidentiality of Alcohol and Drug Abuse Patient Records regulations: The Federal rules restrict any use of the information to criminally investigate or prosecute any alcohol or drug abuse patient.[facility] HospitalIn the event this information is protected by the Federal Confidentiality of Alcohol and Drug Abuse Patient Records regulations: The Federal rules restrict any use of the information to criminally investigate or prosecute any alcohol or drug abuse patient.[facility] HospitalIn the event this information is protected by the Federal Confidentiality of Alcohol and Drug Abuse Patient Records regulations: The Federal rules restrict any use of the information to criminally investigate or prosecute any alcohol or drug abuse patient.[facility] Reason for Visit (unrecogniz ed [...] STEM W/O CONTRAST MATERIAL Stas Mora MD [address] [place] [address] [place] [id number] Referral ID Status Reason Start Date Expiration Date V isits Requested Visits Authorized [id number] Closed Auto-Generat ed Referral Patient Cleared - [...] psychotic, or mood disturbance or anxiety ([facility]) Procedures CONSULT TO GERIATRICS OFFICE/OUTPATIENT [facility] 60 MINUTES Stas Mora MD [address] [place] [address] Referral ID Status Reason Start Date Expiration Date V isits Requested Visits Authorized [id number] Closed PCP Requested Referral 04/25/2024 04/25/2025 1 [...] Care Teams (unrecognized sec tion and content) 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 Specialty Start Date End Date Stas Mora MD [address] [place] [address] PCP - General 08/02/08, Pharmacist [address] [place] [address] Pharmacist Pharmacy 10/19/19 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 Specialty Start Date End Date Stas Mora MD [address] [place] [address] PCP - General 08/02/08, Pharmacist [id number] [place] [address] Pharmacist Pharmacy 10/19/19 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 Specialty Start Date End Date Stas Mora MD [address] [place] [address] PCP - General 08/02/08, Pharmacist [id number] [facility] [address] Pharmacist Pharmacy 10/19/19 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 Specialty Start Date End Date Stas Mora MD [address] [place] [address] PCP - General 08/02/08, Pharmacist [phone] [place] [address], [place] [address] Pharmacist Pharmacy 10/19/19 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 Specialty Start Date End Date Stas Mora MD [address] [place] [address] PCP - General 08/02/08, Pharmacist [address] [facility] [place] [address] Pharmacist Pharmacy 10/19/19 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 Specialty Start Date End Date Stas Mora MD [address] [place] [address] PCP - General 08/02/08, Pharmacist [phone] [place] [address], [place] [address] Pharmacist Pharmacy 10/19/19 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 Specialty Start Date End Date Stas Mora MD [address] [place] [address] PCP - General 08/02/08, Pharmacist [address] [facility] [place] [address] Pharmacist Pharmacy 10/19/19 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 Specialty Start Date End Date Stas Mora MD [address] [place] [address] PCP - General 08/02/08, Pharmacist [address] [facility] [place] [address] Pharmacist Pharmacy 10/19/19 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 Specialty Start Date End Date Stas Mora MD [address] [place] [address] PCP - General 08/02/08, Pharmacist [phone] [place] [address], [place] [address] Pharmacist Pharmacy 10/19/19 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 Specialty Start Date End Date Stas Mora MD [address] [place] [address] PCP - General 08/02/08, Pharmacist [phone] [place] [address], [place] [address] Pharmacist Pharmacy 10/19/19 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 Specialty Start Date End Date Stas Mora MD [address] [place] [address] PCP - General 08/02/08, Pharmacist [phone] [place] [address], [place] [address] Pharmacist Pharmacy 10/19/19 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 Specialty Start Date End Date Stas Mora MD [address] [place] [address] PCP - General 08/02/08, Pharmacist [phone] [place] [address], [place] [address] Pharmacist Pharmacy 10/19/19 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 Specialty Start Date End Date Stas Mora MD [address] [facility] [place] [address] PCP - General 08/02/08, Pharmacist [id number] [facility] [place] [address] Pharmacist Pharmacy 10/19/19 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 Specialty Start Date End Date Stas Mora MD [address] [place] [address] PCP - General 08/02/08, Pharmacist [address] [facility] [place] [address] Pharmacist Pharmacy 10/19/19 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 Specialty Start Date End Date Stas Mora MD [address] [place] [address] PCP - General 08/02/08, Pharmacist [address] [facility] [place] [address] Pharmacist Pharmacy 10/19/19 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 Specialty Start Date End Date Stas Mora MD [address] [place] [address] PCP - General 08/02/08, Pharmacist [phone] [place] [address], [place] [address] Pharmacist Pharmacy 10/19/19 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 Specialty Start Date End Date Stas Mora MD [address] [place] [address] PCP - General 08/02/08, Pharmacist [address] [facility] [place] [address] Pharmacist Pharmacy 10/19/19 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 Specialty Start Date End Date Stas Mora MD [address] [place] [address] PCP - General 08/02/08, Pharmacist [address] [facility] [place] [address] Pharmacist Pharmacy 10/19/19 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 Specialty Start Date End Date Stas Mora MD [address] [place] [address] PCP - General 08/02/08, Pharmacist [address] [facility] [place] [address] Pharmacist Pharmacy 10/19/19 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 Specialty Start Date End Date Stas Mora MD [address] [place] [address] PCP - General 08/02/08, Pharmacist [address] [place] [address] Pharmacist Pharmacy 10/19/19 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 Specialty Start Date End Date Stas Mora MD [address] [place] [address] PCP - General 08/02/08, Pharmacist [id number] [place] [address] Pharmacist Pharmacy 10/19/19 Team Status: Active Member Role Status Dates Dr. Stas Mora MD Family Provider Active Dr. Stas Mora MD Primary Care Provider Active Team Status: Inactive Member Role Status Dates Dr. Stas Mora MD Primary Care Provider Active Dr. Brian Cunningham DO Emergency Provider Active 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 Specialty Start Date End Date Stas Mora MD [address] [place] [address] PCP - General 08/02/08, Pharmacist [address] [place] [address] Pharmacist Pharmacy 10/19/19 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 Specialty Start Date End Date Stas Mora MD [address] [place] [address] PCP - General 08/02/08, Pharmacist [id number] [place] [address] Pharmacist Pharmacy 10/19/19 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 Specialty Start Date End Date Stas Mora MD [address] [place] [address] PCP - General 08/02/08, Pharmacist [address] [place] [address] Pharmacist Pharmacy 10/19/19 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 Specialty Start Date End Date Stas Mora MD [address] [place] [address] PCP - General 08/02/08, Pharmacist [address] [place] [address] Pharmacist Pharmacy 10/19/19 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 Specialty Start Date End Date Stas Mora MD [address] [place] [address] PCP - General 08/02/08, Pharmacist [address] [place] [address] Pharmacist Pharmacy 10/19/19 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 Specialty Start Date End Date Stas Mora MD [address] [place] [address] PCP - General 08/02/08, Pharmacist [address] [place] [address] Pharmacist Pharmacy 10/19/19 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 Specialty Start Date End Date Stas Mora MD [address] [place] [address] PCP - General 08/02/08, Pharmacist [address] [place] [address] Pharmacist Pharmacy 10/19/19 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 Specialty Start Date End Date Stas Mora MD [address] [place] [address] PCP - General 08/02/08, Pharmacist [address] [place] [address] Pharmacist Pharmacy 10/19/19 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 Specialty Start Date End Date Stas Mora MD [address] [place] [address] PCP - General 08/02/08, Pharmacist [id number] [facility] [place] [address] Pharmacist Pharmacy 10/19/19 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 Specialty Start Date End Date Stas Mora MD [address] [place] [address] PCP - General 08/02/08, Pharmacist [id number] [place] [address] Pharmacist Pharmacy 10/19/19 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 Specialty Start Date End Date Stas Mora MD [address] [place] [address] PCP - General 08/02/08, Pharmacist [address] [place] [address] Pharmacist Pharmacy 10/19/19 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 Specialty Start Date End Date Stas Mora MD [address] [place] [address] PCP - General 08/02/08, Pharmacist [address]168 [facility] [place] [address] Pharmacist Pharmacy 10/19/19 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 Specialty Start Date End Date Stas Mora MD [address] [place] [address] PCP - General 08/02/08, Pharmacist [address] [place] [address] Pharmacist Pharmacy 10/19/19 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 Specialty Start Date End Date Stas Mora MD [address] [place] [address] PCP - General 08/02/08, Pharmacist [address]89 [facility] [place] [address] Pharmacist Pharmacy 10/19/19 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 Specialty Start Date End Date Stas Mora MD [address] [place] [address] PCP - General 08/02/08, Pharmacist [address]14 [facility] [place] [address] Pharmacist Pharmacy 10/19/19 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 Specialty Start Date End Date Stas Mora MD [address] [place] [address] PCP - General 08/02/08, Pharmacist [address]156 [facility] [place] [address] Pharmacist Pharmacy 10/19/19 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 Specialty Start Date End Date Stas Mora MD [address] [place] [address] PCP - General 08/02/08, Pharmacist 18858 [facility] [place] [address] Pharmacist Pharmacy 10/19/19 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 Specialty Start Date End Date Stas Mora MD [address] [place] [address] PCP - General 08/02/08, Pharmacist 04309 [facility] [place] [address] Pharmacist Pharmacy 10/19/19 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 Specialty Start Date End Date Stsa Mora MD [address] [place] [address] PCP - General 08/02/08, Pharmacist [address] [place] [address] Pharmacist Pharmacy 10/19/19 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 Specialty Start Date End Date Stas Mora MD [address] [place] [address] PCP - General 08/02/08, Pharmacist [address] [place] [address] Pharmacist Pharmacy 10/19/19 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 Specialty Start Date End Date Stas Mora MD [address] [place] [address] PCP - General 08/02/08, Pharmacist [address] [place] [address] Pharmacist Pharmacy 10/19/19 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 Specialty Start Date End Date Stas Mora MD [address] [place] [address] PCP - General 08/02/08, Pharmacist [address] [place] [address] Pharmacist Pharmacy 10/19/19 Jenna Fitzpatrick APRN.[facility] [address] [place] [address] [facility] 02/28/24 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 Specialty Start Date End Date Stas Mora MD [address] [place] [address] PCP - General 08/02/08, Pharmacist [address] [place] [address] Pharmacist Pharmacy 10/19/19 Jenna Fitzpatrick APRN.[employer] [address] [place] [address] [facility] 02/28/24 Elvis Kearney APRN.[employer] [address] [place] [address] C[facility] Feeder Family [facility] 03/08/24 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 Specialty Start Date End Date Stas Mora MD [address] [place] [address] PCP - General 08/02/08, Pharmacist [address] [place] [address] Pharmacist Pharmacy 10/19/19 Jenna Fitzpatrick APRN.[employer] [address] [place] [address] C[facility] Feeder [facility] 02/28/24 Elvis Kearney APRN.[employer] [address] [place] [address] [facility]/08/24 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 Specialty Start Date End Date Stas Mora MD [address] [place] [address] PCP - General 08/02/08, Pharmacist [address] [place] [address] Pharmacist Pharmacy 10/19/19 Jenna Fitzpatrick APRN.[employer] [address] [place] [address] [facility] 02/28/24 Elvis Kearney APRN.[employer] [address] [facility] [place] [address] [facility] 03/08/24 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 Specialty Start Date End Date Stas Mora MD [address] [place] [address] PCP - General 08/02/08, Pharmacist [address] [place] [address] Pharmacist Pharmacy 10/19/19 Jenna Fitzpatrick WHITE WORK CLEANER.[employer] [address] [place] [address] [facility] 02/28/24 Elvis Kearney APRN.[employer] [address] [place] [address] C[facility] Feeder [facility] 03/08/24 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 Specialty Start Date End Date Stas Mora MD [address] [place] [address] PCP - General 08/02/08, Pharmacist [address]154 [place] [address] Pharmacist Pharmacy 10/19/19 Jenna Fitzpatrick, WHITE WORK CLEANER.[employer] [address] [place] [address] [facility] 02/28/24 Elvis Kearney APRN.[employer] [address] [place] [address] [facility] 03/08/24 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 Specialty Start Date End Date Stas Mora MD [address] [place] [address] PCP - General 08/02/08, Pharmacist [address] [place] [address] Pharmacist Pharmacy 10/19/19 Jenna Fitzpatrick APRN.[employer] [address] [place] [address] Cane Feeder Family [facility] 02/28/24 Elvis Kearney APRN.[employer] [address] [place] [address] [facility] 03/08/24 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 Specialty Start Date End Date Stas Mora MD [address] [place] [address] PCP - General 08/02/08, Pharmacist [address] [place] [address] Pharmacist Pharmacy 10/19/19 Jenna Fitzpatrick APRN.[employer] [address] [place] [address] [facility] 02/28/24 Elvis Kearney WHITE WORK CLEANER.[employer] [address] [place] [address] [facility] 03/08/24 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 Specialty Start Date End Date Stas Mora MD [address] [place] [address] PCP - General 08/02/08, Pharmacist [address] [place] [address] Pharmacist Pharmacy 10/19/19 Jenna Fitzpatrick APRN.[employer] [address] [place] [address] [facility] 02/28/24 Elvis Kearney APRN.[employer] [address] [place] [address] [facility] 03/08/24 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 Specialty Start Date End Date Stas Mora MD [address] [place] [address] PCP - General 08/02/08, Pharmacist [address] [place] [address] Pharmacist Pharmacy 10/19/19 Jenna Fitzpatrick APRN.[employer] [address] [place] [address] Cane Feeder [facility] 02/28/24 Elvis Kearney APRN.[employer] [address] [place] [address] [facility] 03/08/24 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 Specialty Start Date End Date Stas Mora MD [address] [place] [address] PCP - General 08/02/08, Pharmacist [address] [place] [address] Pharmacist Pharmacy 10/19/19 Jenna Fitzpatrick APRN.[employer] [address] [place] [address] [facility] 02/28/24 Elvis Kearney APRN.[employer] [address] [place] [address] [facility] 03/08/24 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 Specialty Start Date End Date Stas Mora MD [address] [place] [address] PCP - General 08/02/08, Pharmacist [address] [place] [address] Pharmacist Pharmacy 10/19/19 Jenna Fitzpatrick, WHITE WORK CLEANER.[employer] [address] [place] [address] [facility] 02/28/24 Elvis Kearney WHITE WORK CLEANER.[employer] [address] [place] [address] [facility] 03/08/24 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 Specialty Start Date End Date Stas Mora MD [address] [place] [address] PCP - General 08/02/08, Pharmacist [address] [place] [address] Pharmacist Pharmacy 10/19/19 Jenna Fitzpatrick, WHITE WORK CLEANER.[employer]PER[employer] [address] [place] [address] [facility] 02/28/24 Elvis Kearney WHITE WORK CLEANER.[employer] [address] [place] [address] [facility] 03/08/24 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 Specialty Start Date End Date Stas Mora MD [address] [place] [address] PCP - General 08/02/08, Pharmacist [address] [place] [address] Pharmacist Pharmacy 10/19/19 Jenna Fitzpatrick APRN.[employer] [address] [place] [address] [facility] 02/28/24 Elvis Kearney APRN.[employer] [address] [place] [address] [facility] 03/08/24 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 Specialty Start Date End Date Stas Mora MD [address] [place] [address] PCP - General 08/02/08, Pharmacist [address] [place] [address] Pharmacist Pharmacy 10/19/19 Jenna Fitzpatrick APRN.[employer] [address] [place] [address] [facility] 02/28/24 Elvis Kearney APRN.[employer] [address] [place] [address] C[facility]eder [facility] 03/08/24 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 Specialty Start Date End Date Stas Mora MD [address] [place] [address] PCP - General 08/02/08, Pharmacist [address] [place] [address] Pharmacist Pharmacy 10/19/19 Jenna Fitzpatrick APRN.[employer] [address] [place] [address] [facility] 02/28/24 Elvis Kearney APRN.[employer] [address] [place] [address] [facility] 03/08/24 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 Specialty Start Date End Date Stas Mora MD [address] [place] [address] PCP - General 08/02/08, Pharmacist [address] [place] [address] Pharmacist Pharmacy 10/19/19 Jenna Fitzpatrick WHITE WORK CLEANER.[employer] [address] [place] [address] [facility] Feeder [facility] 02/28/24 Elvis Kearney APRN.[employer]PER[employer] [address] [place] [address] Cane Feeder [facility] 03/08/24 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 Specialty Start Date End Date Stas Mora MD [address] [place] [address] PCP - General 08/02/08, Pharmacist [address] [place] [address] Pharmacist Pharmacy 10/19/19 Elvis Kearney WHITE WORK CLEANER.SUPER[employer] [address] [place] [address] Cane Feeder [facility] 03/08/24 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 Specialty Start Date End Date Stas Mora MD [address] [place] [address] PCP - General 08/02/08, Pharmacist [address] [place] [address] Pharmacist Pharmacy 10/19/19 Caio, Elvis, WHITE WORK CLEANER.[employer]PER[employer] [address] [place] [address] [facility] 03/08/24 Team Status: Active Member [...] Provider Active Sta rt: September 06, 2024 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 Specialty Start Date End Date Stas Mora MD [address] [place], [place] [id number] PCP - General 08/02/08 13, Pharmacist [address] [place], [place] [address]64[address] Pharmacist Pharmacy 10/19/19 Elvis Kearney APRN.[employer] [address] [facility], [place] [id number] [facility] 03/08/24 Team Status: Active Member [...] End: September 07, 2024 Halina Carmona NP, [facility] [employer]-C Attending Provider Active Start: September 07, 2024 [...] 2024 End: September 08, 2024 Halina Carmona WOLF HUNTER, [employer]-C Attending Provider Active Start: September 08, 2024 [...] 2024 End: September 30, 2024 Halina Carmona WOLF HUNTER, [employer]-C Attending Provider Active Start: September 30, 2024 [...] End: October 20, 2024 Halina Carmona NP, [employer] Attending Provider Active Start: October 20, 2024 [...] September 30, 2024 End: September 30, 2024 aHlina Carmona NP, [employer]-C Attending Provider Active Start: September 30, 2024 End: September 30, 2024 Team Status: Active Member Role/Relationship Status Dates Dr. tSas Mora MD Primary Care Provider Active Start: [...] 2024 End: October 20, 2024 Halina Carmona WOLF HUNTER, [employer]UNTER-C Attending Provider Active Start: October 20, 2024 [...] BE BASED ON THE PRIMARY CLINICAL RECORDS. [employer] provides no warranty or guarantee of the accuracy or completeness of information in this document.
[2024-11-25 08:50] LABS: AST(SGOT) 24 U/L (<=37); Alanine Aminotransfer ALT/SGPT 19 U/L (<=46); Albumin, Serum 3.6 g/dL (3.4-4.8); Alkaline Phosphatase 119 U/L (40-129); Bilirubin, Direct 0.32 mg/dL (0.00-0.30); Cholesterol 83 mg/dL (<=200); Globulin 2.3 g/dL (2.2-4.2); Low Density Lipoprotein Calc. 41 mg/dL; Triglycerides 49 mg/dL; Very Low Density Lipoprotein 10 mg/dL (5-40); cholesterol:hdl ratio screen 2.59
== END ==
LOC: OLS.WHLCAR 05:00
PROVIDERS: PCP Family Medicine; Visit Provider Internal Medicine
DX: E78.5 Hyperlipidemia, unspecified (principal); I10 Essential (primary) hypertension; I48.91 Unspecified atrial fibrillation; I25.10 Atherosclerotic heart disease of native coronary artery without angina pectoris; F03.918 Unspecified dementia, unspecified severity, with other behavioral disturbance
CPT/HCPCS: 36415; 80061; 80076

== ENCOUNTER → 2024-11-30 | Outpatient (REF) | payer MEDICARE, SELFPAY ==
--- OUTSIDE RECORDS SUMMARY | 2024-11-30 04:08 | XMS RPT_ITS | CCD ---
Author Organization [facility] Inform ion [facility] Care Team Providers Care Workday Financials Consultant Name Role Phone TEE, DARRELL E Unavailable [...] Dr. Stas Mora Primary Care Provider [phone] Dr. Inderjit Gillespie Emergency Provider Dr. Dirk [...] Unavailable STERLING LYNCH DO Attending Unavailable Tannhof MUTUEL MACHINE OPERATOR.ATTORNEY LAWYER, Jenna Unavailable Caio MUTUEL MACHINE OPERATOR.ATTORNEY LAWYER, Elvis Unavailable LUCIANA CISNEROS Referring Unavailable ELDERBROCKSTAS Primary Care Unavailable Tannhof MUTUEL MACHINE OPERATOR.ATTORNEY LAWYER, Jenna Unavailable Unavail able Tannhof MUTUEL MACHINE OPERATOR.ATTORNEY LAWYER, Jenna Unavailable Morgan POLANCO, Dr. Ruiz Primary Care Provider [phone] Jose Miguel POLANCO, Dr. Jansen Emergency Provider Priscilla POLANCO, Dr. Kathy Bearden Admit Provider Priscilla POLANCO, Dr. Kathy Bearden Attending Provider Priscilla POLANCO, Dr. Kathy Bearden Other Provider Alberto POLANCO, Dr. Shoemaker Attending Provider Alberto POLANCO, Dr. Shoemaker Other Provider Shayy Curtis MD Attending Provider UnavailShayy Hernandez MD Referring Provider UnavailHalina Narvaez Attending Provider Ever POLANCO, Dr. Lucas Attending Provider Oleghe OLS, Efewongbe Attending Unavailabl e Elderbrock, Stas Primary Care Unavailable Elderbrock, Stas Primary Care Unavailable Oleghe OLS, Efewongbe Attending Unavailabl e Oleghe, Efewongbe Attending Unavailable Elderbrock, Stas Primary Care Unavailable Oleghe, Efewongbe Attending Unavailable Elderbrock, Stas Primary Care Unavailable Oleghe OLS, Efewongbe Attending Unavailabl e Elderbrock, Stas Primary Care Unavailable Elderbrock, Stas Primary Care Unavailable Oleghe OLS, Efewongbe Attending Unavailabl Kathy Dorsey Monisha Admitting Unavailable Kathy Wells Monisha Consulting Unavailable Navid Dominguez Attending Unavailable Elderbrock, Stas Primary Care Unavailable Elderbrock, Stas Primary Care Unavailable Oleghe OLS, Efewongbe Attending Unavailabl e Oleghe OLS, Efewongbe Attending Unavailabl e Elderbrock, Stas Primary Care Unavailable Elderbrock, Stas Primary Care Unavailable Halina Carmona NP Attending Unavailable Oleghe OLS, Efewongbe Attending Unavailabl e Elderbrock, Stas Primary Care Unavailable Oleghe OLS, Efewongbe Attending Unavailabl e Elderbrock, Stas Primary Care Unavailable Oleghe OLS, Efewongbe Attending Unavailabl e Elderbrock, Stas Primary Care Unavailable Oleghe OLS, Efewongbe Attending Unavailabl e Elderbrock, Stas Primary Care Unavailable Oleghe OLS, Efewongbe Attending Unavailabl e Elderbrock, Stas Primary Care Unavailable Oleghe OLS, Efewongbe Referring Unavailabl e Oleghe OLS, Efewongbe Attending Unavailabl e Elderbrock, Stas Primary Care Unavailable Elderbrock, Stas Primary Care Unavailable Oleghe OLS, Efewongbe Attending Unavailabl e Koram, Kathy Monisha Consulting Unavailable Koram, Kathy Monisha Admitting Unavailable Alberto, Navid Attending Unavailable Elderbrock, Stas Primary Care Unavailable Alberto, Navid Consulting Unavailable Elderbrock, Stas Primary Care Unavailable Shailaton CUTTER HEAD SHARPENER, Halina Attending Unavailable Elderbrock, Stas Primary Care Unavailable Shailaton CUTTER HEAD SHARPENER, Halina Attending Unavailable Elderbrock, Stas Primary Care Unavailable Shailaton CUTTER HEAD SHARPENER, Halina Attending Unavailable Oleghe OLS, Efewongbe Attending Unavailabl e Elderbrock, Stas Primary Care Unavailable Oleghe OLS, Efewongbe Attending Unavailabl e Elderbrock, Stas Primary Care Unavailable Koram, Kathy Monisha Attending Unavailable Koram, Kathy Monisha Admitting Unavailable Koram, Kathy Monisha Attending Unavailable Koram, Kathy Monisha Consulting Unavailable Elderbrock, Stas Primary Care Unavailable Oleghe OLS, Efewongbe Attending Unavailabl e Elderbrock, Stas Primary Care Unavailable Elderbrock, Stas Primary Care Unavailable Oleghe OLS, Efewongbe Attending Unavailabl e LUCIANA CISNEROS Attending Unavailable STAS MORA Primary Care Unavailable STAS MORA Referring Unavailable ELDERSTAS GUTIERREZ Primary Care Unavailable ELDERSTAS GUTIERREZ Referring Unavailable ELDERSTAS GUTIERREZ Primary Care Unavailable STAS MORA Referring Unavailable ELDERSTAS GUTIERREZ Primary Care Unavailable STAS MORA Referring Unavailable STAS MORA Primary Care Unavailable STAS MORA Referring Unavailable ELDERSTAS GUTIERREZ Primary Care Unavailable STAS MORA Referring Unavailable ELDERSTAS GUTIERREZ Primary Care Unavailable ELDERBROCK, STAS D Referring [...] unspecified vessel or lesion type, unspecified whether [place] or transplanted heart Take 1 tablet by [...] hydrochloride 10 mg oral tablet (20 sources) [id number]-D-aspartate Receptor Antagonist Start: 06-02-19 End: 11-29-19 take [...] Date: 01/01/06 Status: Ordered polyethylene glycol 3350 [id number] mg powder for oral solution (9 sources) [...] above: Take 1 capsule by mo [facility] daily at bedtime. 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; Translations: [Long-term (current) [...] Auto (Unsp spec) [#/Vol] 1.15 10*3/uL 0.83-4.51 [facility] Absolute neutrophil countOrd ered By: Shayy Curtis on 11-23-2024 Neutrophils (Bld) [#/Vol] 4.4 10*3/uL 2.0-7.7 [facility] Automated lymphocyte count a s percentage of total leukocytesOrdered By: Shayy Curtis on 11-23-2024 Lymphocytes/100 WBC Auto (Unsp spec) 17.5 % Low 19-41 [facility] Basophil percentageOrdered B y: baldomero Curtis on 11-23-2024 Basophils/100 WBC (Bld) 0.9 % 0-1 [facility] Eosinophil percentageOrdered By: [facility] Martinradha on 11-23-2024 Eosinophils/100 WBC (Bld) 2.9 % 0-5 [facility] Erythrocyte distribution wid th ratioOrdered By: holliecraryvilleirlanda Salazarradha on 11-23-2024 Erythrocyte distribution width (RBC) [Ratio] 16.9 % High 11.6-14.6 [facility] Erythrocyte distribution wid th standard deviationOrdered By: Shayy Curtis on 11-23-2024 Erythrocyte distribution width (RBC) [Ratio] 50.4 fl High 35.1-43.9 [facility] Hematocrit Auto (Bld) [Volum e fraction]Ordered By: Shayy Curtis on 11-23-2024 Hematocrit (Bld) [Volume fraction] 36.3 % Low 40-54 [facility] Hemoglobin measurementOrdere d By: Shayy Curtis on 11-23-2024 Hemoglobin (Bld) [Mass/Vol] 11.6 g/dL Low 13.0-16.5 [facility] Immature granulocytes/100 WB C Auto (Bld)Ordered By: holliecraryvilleirlanda Curtis on 11-23-2024 Immature granulocytes/100 WBC (Bld) 0.300 % 0.0-0.9 [facility] Comment on above: IG% - Immature Granu locytes (promyelocytes, myelocytes and metamyelocytes) > 1% indicates that a LEFT SHIFT is Present. MCV (mean corpuscular volume ) determinationOrdered By: holliecraryvilleirlanda Curtis on 11-23-2024 MCV (RBC) [Entitic vol] 82.1 fL 80-94 [facility] Mean corpuscular hemoglobin (MCH) determinationOrdered By: baldomero Curtis on 11-23-2024 MCH (RBC) [Entitic mass] 26.2 pg Low 27.0-32.0 [facility] Mean corpuscular hemoglobin concentration (MCHC) determinationOrdered By: baldomero Curtis on 11-23-2024 MCHC (RBC) [Mass/Vol] 32.0 g/dL 32-36 [facility] Mean platelet volume determi nationOrdered By: baldomero Curtis on 11-23-2024 Platelet mean volume (Bld) [Entitic vol] 10.0 fL 6.2-12.0 [facility] Monocyte percentageOrdered B y: Shayy Curtis on 11-23-2024 Monocytes/100 WBC (Bld) 11.3 % High 0-10 [facility] Neutrophil percentageOrdered By: Shayy Curtis on 11-23-2024 Neutrophils/100 WBC (Bld) 67.1 % 47-70 [facility] Nucleated red blood cell per centageOrdered By: Shayy Curtis on 11-23-2024 Nucleated RBC/100 WBC (Bld) [Ratio] 0 % 0-5 [facility] Platelet countOrdered By: Ef baldomero Curtis on 11-23-2024 Platelets (Bld) [#/Vol] 245 10*3/uL 150-450 [facility] RBC Auto (Bld) [#/Vol]Ordere d By: Shayy Curtis on 11-23-2024 RBC (Bld) [#/Vol] 4.42 10*6/uL Low 4.6-6.2 [facility] White blood cell (WBC) count Ordered By: Shayy Bernalradha on 11-23-2024 WBC (Bld) [#/Vol] 6.6 10*3/uL 4.4-11.0 [facility] Absolute lymphocyte countOrd ered By: Shayy Curtis on 11-02-2024 Lymphocytes Auto (Unsp spec) [#/Vol] 1.10 10*3/uL 0.83-4.51 [facility] Absolute neutrophil countOrd ered By: Shayy Curtis on 11-02-2024 Neutrophils (Bld) [#/Vol] 6.2 10*3/uL 2.0-7.7 [facility] Anion gap in Serum or Plasma Ordered By: Shayy Curtis on 11-02-2024 Anion gap [Moles/Vol] 10 mmol/L 5-15 [facility] Automated lymphocyte count a s percentage of total leukocytesOrdered By: Shayy Bernalradha on 11-02-2024 Lymphocytes/100 WBC Auto (Unsp spec) 13.5 % Low 19-41 [facility] BUN/creatinine ratioOrdered By: Shayy Bernalradha on 11-02-2024 Urea nitrogen/Creatinine [Mass ratio] 30.4 mg/mg High 10-20 [facility] Basophil percentageOrdered B y: Shayy Curtis on 11-02-2024 Basophils/100 WBC (Bld) 0.5 % 0-1 [facility] Carbon dioxide, total [Moles /volume] in Central venous bloodOrdered By: Shayy Curtis on 11-02-2024 CO2 [Moles/Vol] 22.3 mmol/L 21.0-32.0 [facility] Chloride assayOrdered By: Hung Curtis on 11-02-2024 Chloride [Moles/Vol] 106 mmol/L 98-108 [facility] Eosinophil percentageOrdered By: Shayy Curtis on 11-02-2024 Eosinophils/100 WBC (Bld) 1.4 % 0-5 [facility] Erythrocyte distribution wid th ratioOrdered By: Shayy Curtis on 11-02-2024 Erythrocyte distribution width (RBC) [Ratio] 18.0 % High 11.6-14.6 [facility] Erythrocyte distribution wid th standard deviationOrdered By: holliecraryvilleirlanda Curtis on 11-02-2024 Erythrocyte distribution width (RBC) [Ratio] 53.7 fl High 35.1-43.9 [facility] Glomerular filtration rate ( GFR) estimation/1.73 sq m using serum, plasma, or whole bOrdered By: Shayy Curtis on 11-02-2024 GFR/1.73 sq M.predicted among non-blacks MDRD (S/P/Bld) [Vol rate/Area] 91 mL/min/{1.73_m2} >60 [facility] Comment on above: mL/min/1.73m2 CKD-EP I Creatinine Equation (2020) Hematocrit Auto (Bld) [Volum e fraction]Ordered By: Shayy Curtis on 11-02-2024 Hematocrit (Bld) [Volume fraction] 35.3 % Low 40-54 [facility] Hemoglobin measurementOrdere d By: Shayy Curtis on 11-02-2024 Hemoglobin (Bld) [Mass/Vol] 11.2 g/dL Low 13.0-16.5 [facility] Immature granulocytes/100 WB C Auto (Bld)Ordered By: Shayy Curtis 11-02-2024 Immature granulocytes/100 WBC (Bld) 0.400 % 0.0-0.9 [facility] Comment on above: IG% - Immature Granu locytes (promyelocytes, myelocytes and metamyelocytes) > 1% indicates that a LEFT SHIFT is Present. MCV (mean corpuscular volume ) determinationOrdered By: Shayy Curtis on 11-02-2024 MCV (RBC) [Entitic vol] 81.5 fL 80-94 [facility] Mean corpuscular hemoglobin (MCH) determinationOrdered By: Shayy Curtis on 11-02-2024 MCH (RBC) [Entitic mass] 25.9 pg Low 27.0-32.0 [facility] Mean corpuscular hemoglobin concentration (MCHC) determinationOrdered By: Shayy Curtis on 11-02-2024 MCHC (RBC) [Mass/Vol] 31.7 g/dL Low 32-36 [facility] Mean platelet volume determi nationOrdered By: Shayy Curtis on 11-02-2024 Platelet mean volume (Bld) [Entitic vol] 10.3 fL 6.2-12.0 [facility] Monocyte percentageOrdered B y: Shayy Curtis on 11-02-2024 Monocytes/100 WBC (Bld) 7.7 % 0-10 [facility] Neutrophil percentageOrdered By: Shayy Curtis on 11-02-2024 Neutrophils/100 WBC (Bld) 76.5 % High 47-70 [facility] Nucleated red blood cell per centageOrdered By: Shayy Curtis on 11-02-2024 Nucleated RBC/100 WBC (Bld) [Ratio] 0 % 0-5 [facility] Platelet countOrdered By: Hung Curtis on 11-02-2024 Platelets (Bld) [#/Vol] 225 10*3/uL 150-450 [facility] Potassium measurement (mass/ volume)Ordered By: Shayy Curtis on 11-02-2024 Potassium (Unsp spec) [Mass/Vol] 3.9 mmol/L 3.3-5.1 [facility] RBC Auto (Bld) [#/Vol]Ordere d By: Shayy Curtis on 11-02-2024 RBC (Bld) [#/Vol] 4.33 10*6/uL Low 4.6-6.2 [facility] Serum creatinine measurement (mass/volume)Ordered By: Shayy Curtis on 11-02-2024 Creatinine [Mass/Vol] 0.62 mg/dL Low 0.70-1.20 [facility] Serum glucose measurement (m ass/volume)Ordered By: Shayy Curtis on 11-02-2024 Glucose [Mass/Vol] 110 mg/dL High 70-99 [facility] Serum or plasma calcium alvaro urement (mass/volume)Ordered By: Shayy Curtis on 11-02-2024 Calcium [Mass/Vol] 8.7 mg/dL 7.6-11.0 [facility] Serum or plasma urea nitroge n measurement (mass/volume)Ordered By: Shayy Curtis on 11-02-2024 Urea nitrogen [Mass/Vol] 19 mg/dL 4-19 [facility] Sodium levelOrdered By: Latrice simonraffiradha Curtis on 11-02-2024 Sodium [Moles/Vol] 139 mmol/L 133-145 [facility] White blood cell (WBC) count Ordered By: Shayy Curtis on 11-02-2024 WBC (Bld) [#/Vol] 8.1 10*3/uL 4.4-11.0 [facility] International normalized rat io (INR) measurement by fingerstickOrdered By: Shayy Curtis on 10-31-2024 INR Coag (BldC) [Relative time] 1.8 [facility] Comment on above: Critical Value > 4.0 Whole blood prothrombin time Ordered By: Shayy Curtis on 10-31-2024 PT Coag (Bld) [Time] 20.2 s High 11.7-14.9 [facility] normalized rat io (INR) measurement by fingerstickOrdered By: Shayy Curtis on 10-06-2024 INR Coag (BldC) [Relative time] 2.1 [facility] Comment on above: Critical Value > 4.0 Whole blood prothrombin time Ordered By: Shayy Curtis on 10-06-2024 PT Coag (Bld) [Time] 22.6 s High 11.7-14.9 [facility] Absolute lymphocyte countOrd ered By: Shayy Curtis on 10-05-2024 Lymphocytes Auto (Unsp spec) [#/Vol] 1.54 10*3/uL 0.83-4.51 [facility] Absolute neutrophil countOrd ered By: Efhollieongirlanda Bernale on 10-05-2024 Neutrophils (Bld) [#/Vol] 4.2 10*3/uL 2.0-7.7 [facility] Anion gap in Serum or Plasma Ordered By: Shayy Curtis on 10-05-2024 Anion gap [Moles/Vol] 10 mmol/L 5-15 [facility] Automated lymphocyte count a s percentage of total leukocytesOrdered By: Shayy Curtis on 10-05-2024 Lymphocytes/100 WBC Auto (Unsp spec) 23.8 % 19-41 [facility] BUN/creatinine ratioOrdered By: Shayy Curtis on 10-05-2024 Urea nitrogen/Creatinine [Mass ratio] 18.2 mg/mg 10-20 [facility] Basophil percentageOrdered B y: Shayy Curtis on 10-05-2024 Basophils/100 WBC (Bld) 0.6 % 0-1 [facility] Carbon dioxide, total [Moles /volume] in Central venous bloodOrdered By: Shayy Curtis on 10-05-2024 CO2 [Moles/Vol] 24.6 mmol/L 21.0-32.0 [facility] Chloride assayOrdered By: Ef baldomero Curtis on 10-05-2024 Chloride [Moles/Vol] 106 mmol/L 98-108 [facility] Eosinophil percentageOrdered By: Shayy Bernale on 10-05-2024 Eosinophils/100 WBC (Bld) 1.9 % 0-5 [facility] Erythrocyte distribution wid th ratioOrdered By: Latriceongirlanda Bernale on 10-05-2024 Erythrocyte distribution width (RBC) [Ratio] 18.2 % High 11.6-14.6 [facility] Erythrocyte distribution wid th standard deviationOrdered By: Shayy Curtis on 10-05-2024 Erythrocyte distribution width (RBC) [Ratio] 52.4 fl High 35.1-43.9 [facility] Glomerular filtration rate ( GFR) estimation/1.73 sq m using serum, plasma, or whole bOrdered By: Shayy Curtis on 10-05-2024 GFR/1.73 sq M.predicted among non-blacks MDRD (S/P/Bld) [Vol rate/Area] 87 mL/min/{1.73_m2} >60 [facility] Comment on above: mL/min/1.73m2 CKD-EP I Creatinine Equation (2020) Hematocrit Auto (Bld) [Volum e fraction]Ordered By: Shayy Curtis on 10-05-2024 Hematocrit (Bld) [Volume fraction] 35.0 % Low 40-54 [facility] Hemoglobin measurementOrdere d By: Shayy Curtis on 10-05-2024 Hemoglobin (Bld) [Mass/Vol] 11.0 g/dL Low 13.0-16.5 [facility] Immature granulocytes/100 WB C Auto (Bld)Ordered By: Shayy Curtis on 10-05-2024 Immature granulocytes/100 WBC (Bld) 0.300 % 0.0-0.9 [facility] Comment on above: IG% - Immature Granu locytes (promyelocytes, myelocytes and metamyelocytes) > 1% indicates that a LEFT SHIFT is Present. MCV (mean corpuscular volume ) determinationOrdered By: Shayy Curtis on 10-05-2024 MCV (RBC) [Entitic vol] 78.8 fL Low 80-94 [facility] Mean corpuscular hemoglobin (MCH) determinationOrdered By: Shayy Curtis on 10-05-2024 MCH (RBC) [Entitic mass] 24.8 pg Low 27.0-32.0 [facility] Mean corpuscular hemoglobin concentration (MCHC) determinationOrdered By: Shayy Curtis on 10-05-2024 MCHC (RBC) [Mass/Vol] 31.4 g/dL Low 32-36 [facility] Mean platelet volume determi nationOrdered By: Shayy Curtis on 10-05-2024 Platelet mean volume (Bld) [Entitic vol] 10.3 fL 6.2-12.0 [facility] Monocyte percentageOrdered B y: Shayy Curtis on 10-05-2024 Monocytes/100 WBC (Bld) 8.5 % 0-10 [facility] Neutrophil percentageOrdered By: Shayy Curtis on 10-05-2024 Neutrophils/100 WBC (Bld) 64.9 % 47-70 [facility] Nucleated red blood cell per centageOrdered By: Shayy Curtis on 10-05-2024 Nucleated RBC/100 WBC (Bld) [Ratio] 0 % 0-5 [facility] Platelet countOrdered By: Hung Curtis on 10-05-2024 Platelets (Bld) [#/Vol] 235 10*3/uL 150-450 [facility] Potassium measurement (mass/ volume)Ordered By: Hunghollierobsonirlanda Salazartomyradha on 10-05-2024 Potassium (Unsp spec) [Mass/Vol] 4.1 mmol/L 3.3-5.1 [facility] RBC Auto (Bld) [#/Vol]Ordere d By: Shayy Curtis on 10-05-2024 RBC (Bld) [#/Vol] 4.44 10*6/uL Low 4.6-6.2 [facility] Serum creatinine measurement (mass/volume)Ordered By: Hunghollierobsonirlanda Salazartomyradha on 10-05-2024 Creatinine [Mass/Vol] 0.73 mg/dL 0.70-1.20 [facility] Serum glucose measurement (m ass/volume)Ordered By: Hunghollierobsonirlanda Salazartomyradha on 10-05-2024 Glucose [Mass/Vol] 90 mg/dL 70-99 [facility] Serum or plasma calcium alvaro urement (mass/volume)Ordered By: Shayy Martintomyradha on 10-05-2024 Calcium [Mass/Vol] 8.7 mg/dL 7.6-11.0 [facility] Serum or plasma urea nitroge n measurement (mass/volume)Ordered By: Shayy Martintomyradha on 10-05-2024 Urea nitrogen [Mass/Vol] 13 mg/dL 4-19 [facility] Sodium levelOrdered By: Latrice warner Martintomyradha on 10-05-2024 Sodium [Moles/Vol] 140 mmol/L 133-145 [facility] White blood cell (WBC) count Ordered By: Christineirlanda Martintomyradha on 10-05-2024 WBC (Bld) [#/Vol] 6.5 10*3/uL 4.4-11.0 [facility] normalized rat io (INR) calculationOrdered By: Shayy Curtis on 09-29-2024 INR Coag (Bld) [Relative time] 3.3 {INR} [facility] Prothrombin timeOrdered By: Shayy Curtis on 09-29-2024 PT Coag (PPP) [Time] 34.4 s High 11.7-14.9 [facility] Absolute lymphocyte countOrd ered By: Shayy Curtis on 09-28-2024 Lymphocytes Auto (Unsp spec) [#/Vol] 1.41 10*3/uL 0.83-4.51 [facility] Absolute neutrophil countOrd ered By: Shayy Curtis on 09-28-2024 Neutrophils (Bld) [#/Vol] 4.8 10*3/uL 2.0-7.7 [facility] Anion gap in Serum or Plasma Ordered By: Shayy Curtis on 09-28-2024 Anion gap [Moles/Vol] 13 mmol/L 5-15 [facility] Automated lymphocyte count a s percentage of total leukocytesOrdered By: Shayy Curtis on 09-28-2024 Lymphocytes/100 WBC Auto (Unsp spec) 20.1 % 19-41 [facility] BUN/creatinine ratioOrdered By: Shayy Curtis on 09-28-2024 Urea nitrogen/Creatinine [Mass ratio] 19.9 mg/mg 10-20 [facility] Basophil percentageOrdered B y: Shayy Curtis on 09-28-2024 Basophils/100 WBC (Bld) 0.6 % 0-1 [facility] Carbon dioxide, total [Moles /volume] in Central venous bloodOrdered By: Shayy Curtis on 09-28-2024 CO2 [Moles/Vol] 21.1 mmol/L 21.0-32.0 [facility] Chloride assayOrdered By: Hung connorirlanda Curtis on 09-28-2024 Chloride [Moles/Vol] 105 mmol/L 98-108 [facility] Eosinophil percentageOrdered By: [facility] 09-28-2024 Eosinophils/100 WBC (Bld) 2.0 % 0-5 [facility] Erythrocyte distribution wid th ratioOrdered By: holliecraryvilleirlanda Curtis on 09-28-2024 Erythrocyte distribution width (RBC) [Ratio] 18.3 % High 11.6-14.6 [facility] Erythrocyte distribution wid th standard deviationOrdered By: [facility] Salazarradha on 09-28-2024 Erythrocyte distribution width (RBC) [Ratio] 52.8 fl High 35.1-43.9 [facility] Glomerular filtration rate ( GFR) estimation/1.73 sq m using serum, plasma, or whole bOrdered By: baldomero Curtis on 09-28-2024 GFR/1.73 sq M.predicted among non-blacks MDRD (S/P/Bld) [Vol rate/Area] 88 mL/min/{1.73_m2} >60 [facility] Comment on above: mL/min/1.73m2 CKD-EP I Creatinine Equation (2020) Hematocrit Auto (Bld) [Volum e fraction]Ordered By: baldomero Curtis 09-28-2024 Hematocrit (Bld) [Volume fraction] 37.0 % Low 40-54 [facility] Hemoglobin measurementOrdere d By: Shayy Curtis on 09-28-2024 Hemoglobin (Bld) [Mass/Vol] 11.5 g/dL Low 13.0-16.5 [facility] Immature granulocytes/100 WB C Auto (Bld)Ordered By: baldomero Curtis on 09-28-2024 Immature granulocytes/100 WBC (Bld) 0.300 % 0.0-0.9 [facility] Comment on above: IG% - Immature Granu locytes (promyelocytes, myelocytes and metamyelocytes) > 1% indicates that a LEFT SHIFT is Present. MCV (mean corpuscular volume ) determinationOrdered By: Shayy Curtis on 09-28-2024 MCV (RBC) [Entitic vol] 80.3 fL 80-94 [facility] Mean corpuscular hemoglobin (MCH) determinationOrdered By: Shayy Curtis on 09-28-2024 MCH (RBC) [Entitic mass] 24.9 pg Low 27.0-32.0 [facility] Mean corpuscular hemoglobin concentration (MCHC) determinationOrdered By: Shayy Curtis on 09-28-2024 MCHC (RBC) [Mass/Vol] 31.1 g/dL Low 32-36 [facility] Mean platelet volume determi nationOrdered By: Shayy Curtis on 09-28-2024 Platelet mean volume (Bld) [Entitic vol] 10.5 fL 6.2-12.0 [facility] [facility] Monocyte percentageOrdered B y: Shayy Curtis on 09-28-2024 Monocytes/100 WBC (Bld) 8.8 % 0-10 [facility] Neutrophil percentageOrdered By: baldomero Curtis on 09-28-2024 Neutrophils/100 WBC (Bld) 68.2 % 47-70 [facility] Nucleated red blood cell per centageOrdered By: Shayy Curtis on 09-28-2024 Nucleated RBC/100 WBC (Bld) [Ratio] 0 % 0-5 [facility] Platelet countOrdered By: Hung Curtis on 09-28-2024 Platelets (Bld) [#/Vol] 280 10*3/uL 150-450 [facility] Potassium measurement (mass/ volume)Ordered By: Shayy Curtis on 09-28-2024 Potassium (Unsp spec) [Mass/Vol] 4.0 mmol/L 3.3-5.1 [facility] RBC Auto (Bld) [#/Vol]Ordere d By: Shayy Curtis on 09-28-2024 RBC (Bld) [#/Vol] 4.61 10*6/uL 4.6-6.2 [facility] Serum creatinine measurement (mass/volume)Ordered By: Shayy Curtis on 09-28-2024 Creatinine [Mass/Vol] 0.71 mg/dL 0.70-1.20 [facility] Serum glucose measurement (m ass/volume)Ordered By: Shayy Curtis on 09-28-2024 Glucose [Mass/Vol] 91 mg/dL 70-99 [facility] Serum or plasma calcium alvaro urement (mass/volume)Ordered By: Shayy Curtis on 09-28-2024 Calcium [Mass/Vol] 8.9 mg/dL 7.6-11.0 [facility] Serum or plasma urea nitroge n measurement (mass/volume)Ordered By: Shayy Curtis on 09-28-2024 Urea nitrogen [Mass/Vol] 14 mg/dL 4-19 [facility] Sodium levelOrdered By: Latrice Curtis on 09-28-2024 Sodium [Moles/Vol] 140 mmol/L 133-145 [facility] White blood cell (WBC) count Ordered By: Shayy Curtis on 09-28-2024 WBC (Bld) [#/Vol] 7.0 10*3/uL 4.4-11.0 [facility] International normalized rat io (INR) measurement by fingerstickOrdered By: Shayy Curtis on 09-26-2024 INR Coag (BldC) [Relative time] 2.5 [facility] Comment on above: Critical Value > 4.0 Whole blood prothrombin time Ordered By: Shayy Curtis on 09-26-2024 PT Coag (Bld) [Time] 27.1 s High 11.7-14.9 [facility] International normalized rat io (INR) calculationOrdered By: Shayy Curtis on 09-23-2024 INR Coag (Bld) [Relative time] 2.0 {INR} [facility] Prothrombin timeOrdered By: Shayy Curtis on 09-23-2024 PT Coag (PPP) [Time] 23.5 s High 11.7-14.9 [facility] Absolute lymphocyte countOrd ered By: Shayy Curtis on 09-21-2024 Lymphocytes Auto (Unsp spec) [#/Vol] 1.35 10*3/uL 0.83-4.51 [facility] Absolute neutrophil countOrd ered By: Shayy Curtis on 09-21-2024 Neutrophils (Bld) [#/Vol] 4.3 10*3/uL 2.0-7.7 [facility] Anion gap in Serum or Plasma Ordered By: holliecraryvilleirlanda Martinsergio on 09-21-2024 Anion gap [Moles/Vol] 12 mmol/L 5-15 [facility] Automated lymphocyte count a s percentage of total leukocytesOrdered By: holliecraryvilleirlanda Curtis on 09-21-2024 Lymphocytes/100 WBC Auto (Unsp spec) 21.5 % 19-41 [facility] BUN/creatinine ratioOrdered By: [facility] Sal[facility]arrad[facility] on 09-21-2024 Urea nitrogen/Creatinine [Mass ratio] 15.8 mg/mg 10-20 [facility] Basophil percentageOrdered B y: Shayy Curtis on 09-21-2024 Basophils/100 WBC (Bld) 0.8 % 0-1 [facility] CNPNon 09-21-2024 [facility] Tele[facility] ROBY FLORES ([id number]) 1935 M Date Time Provider Department 09/21/[address] During your visit today, we recorded the following information about you: Ruthannzenaida Petty 09/21/2024 9:23 AM Signed [facility] rehabilitation. 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 Encounter Status:Closed by MARTA PALACIO on 09/22/24 Normal [facility] Carbon dioxide, total [Moles /volume] in Central venous bloodOrdered By: Shayy Curtis on 09-21-2024 CO2 [Moles/Vol] 23.2 mmol/L 21.0-32.0 [facility] Chloride assayOrdered By: Hung Curtis on 09-21-2024 Chloride [Moles/Vol] 104 mmol/L 98-108 [facility] Eosinophil percentageOrdered By: Shayy Curtis on 09-21-2024 Eosinophils/100 WBC (Bld) 1.3 % 0-5 [facility] Erythrocyte distribution wid th ratioOrdered By: Shayy Curtis on 09-21-2024 Erythrocyte distribution width (RBC) [Ratio] 18.0 % High 11.6-14.6 [facility] Erythrocyte distribution wid th standard deviationOrdered By: Shayy Curtis on 09-21-2024 Erythrocyte distribution width (RBC) [Ratio] 50.8 fl High 35.1-43.9 [facility] Glomerular filtration rate ( GFR) estimation/1.73 sq m using serum, plasma, or whole bOrdered By: Shayy Curtis on 09-21-2024 GFR/1.73 sq M.predicted among non-blacks MDRD (S/P/Bld) [Vol rate/Area] 88 mL/min/{1.73_m2} >60 [facility] Comment on above: mL/min/1.73m2 CKD-EP I Creatinine Equation (2020) Hematocrit Auto (Bld) [Volum e fraction]Ordered By: Shayy Curtis on 09-21-2024 Hematocrit (Bld) [Volume fraction] 37.5 % Low 40-54 [facility] Hemoglobin measurementOrdere d By: Shayy Curtis on 09-21-2024 Hemoglobin (Bld) [Mass/Vol] 11.6 g/dL Low 13.0-16.5 [facility] Immature granulocytes/100 WB C Auto (Bld)Ordered By: Shayy Curtis on 09-21-2024 Immature granulocytes/100 WBC (Bld) 0.300 % 0.0-0.9 [facility] Comment on above: IG% - Immature Granu locytes (promyelocytes, myelocytes and metamyelocytes) > 1% indicates that a LEFT SHIFT is Present. International normalized rat io (INR) calculationOrdered By: Shayy Curtis on 09-21-2024 INR Coag (Bld) [Relative time] 1.7 {INR} [facility] MCV (mean corpuscular volume ) determinationOrdered By: Shayy Curtis on 09-21-2024 MCV (RBC) [Entitic vol] 78.9 fL Low 80-94 [facility] Mean corpuscular hemoglobin (MCH) determinationOrdered By: Shayy Curtis 09-21-2024 MCH (RBC) [Entitic mass] 24.4 pg Low 27.0-32.0 [facility] Mean corpuscular hemoglobin concentration (MCHC) determinationOrdered By: Shayy Curtis on 09-21-2024 MCHC (RBC) [Mass/Vol] 30.9 g/dL Low 32-36 [facility] Mean platelet volume determi nationOrdered By: Shayy Curtis on 09-21-2024 Platelet mean volume (Bld) [Entitic vol] 10.1 fL 6.2-12.0 [facility] Monocyte percentageOrdered B y: Shayy Curtis on 09-21-2024 Monocytes/100 WBC (Bld) 8.1 % 0-10 [facility] Neutrophil percentageOrdered By: Shayy Curtis on 09-21-2024 Neutrophils/100 WBC (Bld) 68.0 % 47-70 [facility] Nucleated red blood cell per centageOrdered By: Shayy Curtis on 09-21-2024 Nucleated RBC/100 WBC (Bld) [Ratio] 0 % 0-5 [facility] Platelet countOrdered By: uHng Curtis on 09-21-2024 Platelets (Bld) [#/Vol] 318 10*3/uL 150-450 [facility] Potassium measurement (mass/ volume)Ordered By: Shayy Curtis on 09-21-2024 Potassium (Unsp spec) [Mass/Vol] 4.0 mmol/L 3.3-5.1 [facility] Prothrombin timeOrdered By: Shayy Curtis on 09-21-2024 PT Coag (PPP) [Time] 20.6 s High 11.7-14.9 [facility] RBC Auto (Bld) [#/Vol]Ordere d By: Shayy Curtis on 09-21-2024 RBC (Bld) [#/Vol] 4.75 10*6/uL 4.6-6.2 [facility] Serum creatinine measurement (mass/volume)Ordered By: Shayy Curtis on 09-21-2024 Creatinine [Mass/Vol] 0.70 mg/dL 0.70-1.20 [facility] Serum glucose measurement (m ass/volume)Ordered By: Shayy Curtis on 09-21-2024 Glucose [Mass/Vol] 101 mg/dL High 70-99 [facility] Serum or plasma calcium alvaro urement (mass/volume)Ordered By: Shayy Curtis on 09-21-2024 Calcium [Mass/Vol] 9.2 mg/dL 7.6-11.0 [facility] Serum or plasma urea nitroge n measurement (mass/volume)Ordered By: Shayy Curtis on 09-21-2024 Urea nitrogen [Mass/Vol] 11 mg/dL 4-19 [facility] Sodium levelOrdered By: Latrice Curtis on 09-21-2024 Sodium [Moles/Vol] 139 mmol/L 133-145 [facility] White blood cell (WBC) count Ordered By: Shayy Curtis on 09-21-2024 WBC (Bld) [#/Vol] 6.3 10*3/uL 4.4-11.0 [facility] International normalized rat io (INR) measurement by fingerstickOrdered By: Shayy Curtis on 09-19-2024 INR Coag (BldC) [Relative time] 1.9 [facility] Comment on above: Critical Value > 4.0 Whole blood prothrombin time Ordered By: Shayy Curtis on 09-19-2024 PT Coag (Bld) [Time] 21.5 s High 11.7-14.9 [facility] International normalized rat io (INR) calculationOrdered By: Shayy Curtis on 09-15-2024 INR Coag (Bld) [Relative time] 2.1 {INR} [facility] Prothrombin timeOrdered By: Shayy Curtis on 09-15-2024 PT Coag (PPP) [Time] 24.2 s High 11.7-14.9 [facility] Absolute lymphocyte countOrd ered By: Shayy Curtis on 09-14-2024 Lymphocytes Auto (Unsp spec) [#/Vol] 1.57 10*3/uL 0.83-4.51 [facility] Absolute neutrophil countOrd ered By: Shayy Curtis on 09-14-2024 Neutrophils (Bld) [#/Vol] 5.1 10*3/uL 2.0-7.7 [facility] Anion gap in Serum or Plasma Ordered By: Shayy Curtis on 09-14-2024 Anion gap [Moles/Vol] 12 mmol/L 5-15 [facility] Automated lymphocyte count a s percentage of total leukocytesOrdered By: Shayy Curtis on 09-14-2024 Lymphocytes/100 WBC Auto (Unsp spec) 20.8 % 19-41 [facility] BUN/creatinine ratioOrdered By: baldomero Curtis on 09-14-2024 Urea nitrogen/Creatinine [Mass ratio] 21.8 mg/mg High 10-20 [facility] Basophil percentageOrdered B y: Shayy Curtis on 09-14-2024 Basophils/100 WBC (Bld) 1.1 % High 0-1 [facility] Carbon dioxide, total [Moles /volume] in Central venous bloodOrdered By: Shayy Curtis on 09-14-2024 CO2 [Moles/Vol] 21.8 mmol/L 21.0-32.0 [facility] Chloride assayOrdered By: Hung Curtis on 09-14-2024 Chloride [Moles/Vol] 107 mmol/L 98-108 [facility] Eosinophil percentageOrdered By: baldomero Curtis on 09-14-2024 Eosinophils/100 WBC (Bld) 1.7 % 0-5 [facility] Erythrocyte distribution wid th ratioOrdered By: Shayy Curtis on 09-14-2024 Erythrocyte distribution width (RBC) [Ratio] 17.7 % High 11.6-14.6 [facility] Erythrocyte distribution wid th standard deviationOrdered By: baldomero Curtis on 09-14-2024 Erythrocyte distribution width (RBC) [Ratio] 51.1 fl High 35.1-43.9 [facility] Glomerular filtration rate ( GFR) estimation/1.73 sq m using serum, plasma, or whole bOrdered By: Shayy Curtis on 09-14-2024 GFR/1.73 sq M.predicted among non-blacks MDRD (S/P/Bld) [Vol rate/Area] 87 mL/min/{1.73_m2} >60 [facility] Comment on above: mL/min/1.73m2 CKD-EP I Creatinine Equation (2020) Hematocrit Auto (Bld) [Volum e fraction]Ordered By: Shayy Curtis on 09-14-2024 Hematocrit (Bld) [Volume fraction] 34.7 % Low 40-54 [facility] Hemoglobin measurementOrdere d By: Shayy Curtis on 09-14-2024 Hemoglobin (Bld) [Mass/Vol] 10.7 g/dL Low 13.0-16.5 [facility] Immature granulocytes/100 WB C Auto (Bld)Ordered By: baldomero Curtis on 09-14-2024 Immature granulocytes/100 WBC (Bld) 0.400 % 0.0-0.9 [facility] Comment on above: IG% - Immature Granu locytes (promyelocytes, myelocytes and metamyelocytes) > 1% indicates that a LEFT SHIFT is Present. MCV (mean corpuscular volume ) determinationOrdered By: Shayy Curtis on 09-14-2024 MCV (RBC) [Entitic vol] 78.9 fL Low 80-94 [facility] Mean corpuscular hemoglobin (MCH) determinationOrdered By: holliecraryvilleirlanda Curtis on 09-14-2024 MCH (RBC) [Entitic mass] 24.3 pg Low 27.0-32.0 [facility] Mean corpuscular hemoglobin concentration (MCHC) determinationOrdered By: Shayy Curtis on 09-14-2024 MCHC (RBC) [Mass/Vol] 30.8 g/dL Low 32-36 [facility] Mean platelet volume determi nationOrdered By: holliecraryvilleirlanda Curtis on 09-14-2024 Platelet mean volume (Bld) [Entitic vol] 10.6 fL 6.2-12.0 [facility] Monocyte percentageOrdered B y: Shayy Curtis on 09-14-2024 Monocytes/100 WBC (Bld) 8.5 % 0-10 [facility] Neutrophil percentageOrdered By: baldomero Curtis on 09-14-2024 Neutrophils/100 WBC (Bld) 67.5 % 47-70 [facility] Nucleated red blood cell per centageOrdered By: Shayy Martinsergio on 09-14-2024 Nucleated RBC/100 WBC (Bld) [Ratio] 0 % 0-5 [facility] Platelet countOrdered By: Hung baldomero Martintomyradha on 09-14-2024 Platelets (Bld) [#/Vol] 291 10*3/uL 150-450 [facility] Potassium measurement (mass/ volume)Ordered By: Hunghollierobsonirlanda Salazartomyradha on 09-14-2024 Potassium (Unsp spec) [Mass/Vol] 4.0 mmol/L 3.3-5.1 [facility] RBC Auto (Bld) [#/Vol]Ordere d By: Shayy Martinsergio on 09-14-2024 RBC (Bld) [#/Vol] 4.40 10*6/uL Low 4.6-6.2 [facility] Serum creatinine measurement (mass/volume)Ordered By: Hunghollietimmy Martintomyradha on 09-14-2024 Creatinine [Mass/Vol] 0.74 mg/dL 0.70-1.20 [facility] Serum glucose measurement (m ass/volume)Ordered By: Christineirlanda Salazartomyradha on 09-14-2024 Glucose [Mass/Vol] 99 mg/dL 70-99 [facility] Serum or plasma calcium alvaro urement (mass/volume)Ordered By: Hunghollierobsonirlanda Salazartomyradha on 09-14-2024 Calcium [Mass/Vol] 8.6 mg/dL 7.6-11.0 [facility] Serum or plasma urea nitroge n measurement (mass/volume)Ordered By: Hungbaldomero Salazartomyradha on 09-14-2024 Urea nitrogen [Mass/Vol] 16 mg/dL 4-19 [facility] Sodium levelOrdered By: Latrice warner Martintomyradha on 09-14-2024 Sodium [Moles/Vol] 141 mmol/L 133-145 [facility] White blood cell (WBC) count Ordered By: Hunghollierobsonirlanda Salazartomyradha on 09-14-2024 WBC (Bld) [#/Vol] 7.5 10*3/uL 4.4-11.0 [facility] International normalized rat io (INR) measurement by fingerstickOrdered By: Shayy Curtis on 09-12-2024 INR Coag (BldC) [Relative time] 3.2 [facility] Comment on above: Critical Value > 4.0 Whole blood prothrombin time Ordered By: Shayy Curtis on 09-12-2024 PT Coag (Bld) [Time] 33.0 s High 11.7-14.9 [facility] International normalized rat io (INR) measurement by fingerstickOrdered By: Shayy Curtis on 09-08-2024 INR Coag (BldC) [Relative time] 2.2 [facility] Comment on above: Critical Value > 4.0 Prothrombin Time w/INRon INR Normal [facility] Comment on above: Result Comment: Canc elled via OM: Order cancelled - Patient discharged Performed By: #### L [id number] #### [facility] [address] [place], [place], [id number] PROTIME Normal 11.7-14.9 [facility] Comment on above: Result Comment: Canc elled via OM: Order cancelled - Patient discharged Performed By: #### L [id number] #### [facility] [address] [place], [address] Whole blood prothrombin time Ordered By: Shayy Curtis on 09-08-2024 PT Coag (Bld) [Time] 23.8 s High 11.7-14.9 [facility] Anion gap in Serum or Plasma Ordered By: Shayy Curtis on 09-07-2024 Anion gap [Moles/Vol] 10 mmol/L 5-15 [facility] BUN/creatinine ratioOrdered By: Shayy Curtis on 09-07-2024 Urea nitrogen/Creatinine [Mass ratio] 14.0 mg/mg 10-20 [facility] Bilirubin, totalOrdered By: Shayy Curtis on 09-07-2024 Bilirubin [Mass/Vol] 1.02 mg/dL 0.00-1.30 [facility] Calculated very low density lipoprotein (VLDL) cholesterol measurementOrdered By: Shayy Curtis on 09-07-2024 Calculated very low density lipoprotein (VLDL) cholesterol measurement 13 mg/dL 5-40 [facility] Carbon dioxide, total [Moles /volume] in Central venous bloodOrdered By: Shayy Curtis on 09-07-2024 CO2 [Moles/Vol] 25.4 mmol/L 21.0-32.0 [facility] Chloride assayOrdered By: Hung Curtis on 09-07-2024 Chloride [Moles/Vol] 104 mmol/L 98-108 [facility] Culture, Blood (WB)on 2024 CUB No growth in 5 days. Normal [facility] Comment on above: Performed By: #### M 200.1000, L509.7001, L101.9900, L501.6710 #### [facility] [address] [place], [address] Glomerular filtration rate ( GFR) estimation/1.73 sq m using serum, plasma, or whole bOrdered By: Shayy Curtis on 09-07-2024 GFR/1.73 sq M.predicted among non-blacks MDRD (S/P/Bld) [Vol rate/Area] 88 mL/min/{1.73_m2} >60 [facility] Comment on above: mL/min/1.73m2 CKD-EP I Creatinine Equation (2020) LDL calc ser/plasOrdered By: Shayy Curtis on 09-07-2024 Cholesterol in LDL [Mass/Vol] 64 mg/dL [facility] Comment on above: Ngmtziprvu=959-339 m g/dL & Higher Bppq=849 mg/dL or greater Laboratory - Chemistry and C hemistry - challengeOrdered By: Shayy Curtis on 09-07-2024 AST [Catalytic activity/Vol] 33 U/L <38 [facility] Potassium measurement (mass/ volume)Ordered By: Shayy Curtis on 09-07-2024 Potassium (Unsp spec) [Mass/Vol] 3.8 mmol/L 3.3-5.1 [facility] Prothrombin Time w/INRon INR Normal [facility] Comment on above: Result Comment: Canc elled via OM: Order cancelled - Patient discharged Performed By: #### L [id number] #### [facility] [address] [place], [place], [id number] PROTIME Normal 11.7-14.9 [facility] Comment on above: Result Comment: Canc elled via OM: Order cancelled - Patient discharged Performed By: #### L [id number] #### [facility] [address] [place], [place], [id number] Screening total cholesterol/ high density lipoprotein (HDL) cholesterol ratioOrdered By: Shayy Curtis on 09-07-2024 Cholesterol.total/Cho lesterol in HDL [Mass ratio] 3.75 {ratio} [facility] Serum creatinine measurement (mass/volume)Ordered By: Shayy Curtis on 09-07-2024 Creatinine [Mass/Vol] 0.70 mg/dL 0.70-1.20 [facility] Serum globulin measurementOr dered By: Shayy Curtis on 09-07-2024 Globulin (S) [Mass/Vol] 2.5 g/dL 2.2-4.2 [facility] Serum glucose measurement (m ass/volume)Ordered By: Shayy Curtis on 09-07-2024 Glucose [Mass/Vol] 107 mg/dL High 70-99 [facility] Serum or plasma alanine franks otransferase (ALT) measurementOrdered By: Shayy Curtis on 09-07-2024 ALT [Catalytic activity/Vol] 23 U/L <47 [facility] Serum or plasma albumin alvaro urement (mass/volume)Ordered By: Shayy Curtis on 09-07-2024 Albumin [Mass/Vol] 3.7 g/dL 3.4-4.8 [facility] Serum or plasma albumin/glob ulin mass ratioOrdered By: Shayy Curtis on 09-07-2024 Albumin/Globulin [Mass ratio] 1.5 {ratio} 0.9-2.4 [facility] Serum or plasma alkaline carole sphatase measurementOrdered By: Shayy Curtis on 09-07-2024 ALP [Catalytic activity/Vol] 123 U/L 40-129 [facility] Serum or plasma calcium alvaro urement (mass/volume)Ordered By: Shayy Salazartomyradha on 09-07-2024 Calcium [Mass/Vol] 8.7 mg/dL 7.6-11.0 [facility] Serum or plasma cholesterol in HDL measurement (mass/volume)Ordered By: Shayy Curtis on 09-07-2024 Cholesterol in HDL [Mass/Vol] 28 mg/dL Low >40 [facility] Comment on above: National Cholesterol Education Program (NCEP) guidelines:<40 mg/dL: Low HDL-cholesterol (major risk factor for CHD)>= 60 mg/dL: High HDL-cholesterol (negative risk factor for CHD)HDL-cholesterol is affected by a number of factors, e.g. smoking, exercise, hormones, sex and age. Serum or plasma cholesterol measurement (mass/volume)Ordered By: Shayy Curtis on 09-07-2024 Cholesterol [Mass/Vol] 105 mg/dL <201 [facility] Comment on above: Cholesterol level, D esirable <200 mg/dLBorderline high cholesterol 200-239 mg/dLHigh cholesterol >=240 mg/dLRecommendations of the NCEP Adult Treatment Panel for the following risk-cutoff thresholds for the [place] population. Serum or plasma urea nitroge n measurement (mass/volume)Ordered By: Shayy Curtis on 09-07-2024 Urea nitrogen [Mass/Vol] 10 mg/dL 4-19 [facility] Sodium levelOrdered By: Latrice simonraffiradha Curtis 09-07-2024 Sodium [Moles/Vol] 139 mmol/L 133-145 [facility] TSH DL <= 0.005 mIU/L QnOrde red By: Shayy Curtis on 09-07-2024 TSH Qn 0.300 uIU/mL 0.300-4.20 0 [facility] Total proteinOrdered By: Yazan Curtis on 09-07-2024 Protein [Mass/Vol] 6.2 g/dL 5.9-8.4 [facility] Triglycerides measurementOrd ered By: Latricetimmy Martintomyradha on 09-07-2024 Triglyceride [Mass/Vol] 63 mg/dL <199 [facility] Comment on above: The drugs N-Acetylcy steine and Metamizole may falsely depress this assay. Normal range: <150 mg/dLBorderline High: 150-199 mg/dLHigh: 200-499 mg/dLVery High: >500 mg/dL Vitamin B12 ser/plasOrdered By: Shayy Curtis on 09-07-2024 Cobalamin (Vitamin B12) [Mass/Vol] 519 pg/mL 180-914 [facility] Absolute lymphocyte countOrd ered By: Navid Dominguez on 09-06-2024 Lymphocytes Auto (Unsp spec) [#/Vol] 1.28 10*3/uL 0.83-4.51 [facility] Absolute neutrophil countOrd ered By: Navid Dominguez on 09-06-2024 Neutrophils (Bld) [#/Vol] 5.2 10*3/uL 2.0-7.7 [facility] Anion gap in Serum or Plasma Ordered By: Navid Dominguez on 09-06-2024 Anion gap [Moles/Vol] 10 mmol/L 5-15 [facility] Automated blood erythrocyte countOrdered By: Navid Dominguez on 09-06-2024 RBC (Bld) [#/Vol] 4.39 10*6/uL Low 4.6-6.2 [facility] Comment on above: Performed By: #### L 100.0100, L500.2500, L300.3900 #### [facility] [address] [place], [address] Automated blood hematocrit ( percentage)Ordered By: Navid Dominguez on 09-06-2024 Hematocrit (Bld) [Volume fraction] 33.6 % Low 40-54 [facility] Comment on above: Performed By: #### L 100.0100, L500.2500, L300.3900 #### [facility] [address] [place], [address] Automated lymphocyte count a s percentage of total leukocytesOrdered By: Navid Dominguez on 09-06-2024 Lymphocytes/100 WBC Auto (Unsp spec) 16.4 % Low 19-41 [facility] BUN/creatinine ratioOrdered By: Navid Dominguez on 09-06-2024 Urea nitrogen/Creatinine [Mass ratio] 14.4 mg/mg 10- [facility] Basic Metabolic Profile (BMP )on 09-06-2024 BUN/CRE 14.4 RATIO Normal 10-20 [facility] Comment on above: Performed By: #### M 200.1000, L509.7001, L101.9900, L501.6710 #### [facility] [address] [place], [address] ECRCL 64.10 ml/min Normal 50-250 [facility] Comment on above: Performed By: #### M 200.1000, L509.7001, L101.9900, [id number] #### [facility] [address] [place], [address] GAP 10 Normal 5-15 [facility] Comment on above: Performed By: #### M 200.1000, L509.7001, L101.9900, [id number] #### [facility] [address] [place], [address] Potassium [Moles/Vol] 3.5 mmol/L Normal 3.3-5.1 [facility] Comment on above: Performed By: #### M 200.1000, L509.7001, L101.9900, L501.6710 #### [facility] [address] [place], [address] Basophil percentageOrdered B y: Navid Dominguez on 09-06-2024 Basophils/100 WBC (Bld) 1.0 % Normal 0-1 [facility] Comment on above: Performed By: #### L 100.0100, L500.2500, L300.3900 #### [facility] [address] [place], [address] CBC W/Diff, Automatedon 08-21 Absolute Lymph 1.28 X10 3/uL Normal 0.83-4.51 [facility] Comment on above: Performed By: #### L 100.0100, L500.2500, L300.3900 #### [facility] [address] [place], [address] Absolute Neut 5.2 X10 3/uL Normal 2.0-7.7 [facility] Comment on above: Performed By: #### L 100.0100, L500.2500, L300.3900 #### [facility] [address] [place], [address] IG% 0.400 Normal 0.0-0.9 [facility] Comment on above: Result Comment: IG% - Immature Granulocytes (promyelocytes, myelocytes and metamyelocytes) > 1% indicates that a LEFT SHIFT is Present. Performed By: #### L 100.0100, L500.2500, L300.3900 #### [facility] [address] [place], [address] Lymphocytes/100 WBC (Bld) 16.4 % Low 19-41 [facility] Comment on above: Performed By: #### L 100.0100, L500.2500, L300.3900 #### [facility] [address] [place], [address] Nucleated RBC (Bld) [#/Vol] 0 10*3/uL Normal 0-5 [facility] Comment on above: Performed By: #### L 100.0100, L500.2500, L300.3900 #### [facility] [address] [place], [address] RDW SD 48.2 fl High 35.1-43.9 [facility] Comment on above: Performed By: #### L 100.0100, L500.2500, L300.3900 #### [facility] [address] [place], [address] Carbon dioxide, total [Moles /volume] in Central venous bloodOrdered By: Navid Dominguez on 09-06-2024 CO2 [Moles/Vol] 24.9 mmol/L Normal 21.0-32.0 [facility] Comment on above: Performed By: #### M 200.1000, L509.7001, L101.9900, L501.6710 #### [facility] [address] [place], [address] Chloride assayOrdered By: Cameron Dominguez on 09-06-2024 Chloride [Moles/Vol] 106 mmol/L Normal 98-108 [facility] Comment on above: Performed By: #### M 200.1000, L509.7001, L101.9900, L501.6710 #### [facility] [address] [place], [address] Eosinophil percentageOrdered By: Navid Dominguez on 09-06-2024 Eosinophils/100 WBC (Bld) 6.3 % High 0-5 [facility] Comment on above: Performed By: #### L 100.0100, L500.2500, L300.3900 #### [facility] [address] [place], [address] Erythrocyte distribution wid th ratioOrdered By: Navid Dominguez on 09-06-2024 Erythrocyte distribution width (RBC) [Ratio] 17.4 % High 11.6-14.6 [facility] Comment on above: Performed By: #### L 100.0100, L500.2500, L300.3900 #### [facility] [address] [place], [address] Erythrocyte distribution wid th standard deviationOrdered By: Navid Dominguez on 09-06-2024 Erythrocyte distribution width (RBC) [Ratio] 48.2 fl High 35.1-43.9 [facility] Glomerular filtration rate ( GFR) estimation/1.73 sq m using serum, plasma, or whole bOrdered By: Navid Dominguez on 09-06-2024 GFR/1.73 sq M.predicted among non-blacks MDRD (S/P/Bld) [Vol rate/Area] 87 mL/min/{1.73_m2} Normal >60 [facility] Comment on above: mL/min/1.73m2 CKD-EP I Creatinine Equation (2020) Result Comment: mL/m in/1.73m2 CKD-EPI Creatinine Equation (2020) Performed By: #### M 200.1000, L509.7001, L101.9900, L501.6710 #### [facility] [address] [place], [place], [id number] Hemoglobin measurementOrdere d By: Navid Dominguez on 09-06-2024 Hemoglobin (Bld) [Mass/Vol] 10.8 g/dL Low 13.0-16.5 [facility] Comment on above: Performed By: #### L 100.0100, L500.2500, L300.3900 #### [facility] [address] [place], [place], [id number] Immature granulocytes/100 WB C Auto (Bld)Ordered By: Navid Dominguez on 09-06-2024 Immature granulocytes/100 WBC (Bld) 0.400 % 0.0-0.9 [facility] Comment on above: IG% - Immature Granu locytes (promyelocytes, myelocytes and metamyelocytes) > 1% indicates that a LEFT SHIFT is Present. International normalized rat io (INR) calculationOrdered By: Navid Dominguez on 09-06-2024 INR Coag (Bld) [Relative time] 2.4 {INR} [facility] MCV (mean corpuscular volume ) determinationOrdered By: Navid Dominguez on 09-06-2024 MCV (RBC) [Entitic vol] 76.5 fL Low 80-94 [facility] Comment on above: Performed By: #### L 100.0100, L500.2500, L300.3900 #### [facility] [address] [place], [address] Mean corpuscular hemoglobin (MCH) determinationOrdered By: Navid Dominguez on 09-06-2024 MCH (RBC) [Entitic mass] 24.6 pg Low 27.0-32.0 [facility] Comment on above: Performed By: #### L 100.0100, L500.2500, L300.3900 #### [facility] [address] [place], [address] Mean corpuscular hemoglobin concentration (MCHC) determinationOrdered By: Navid Dominguez on 09-06-2024 MCHC (RBC) [Mass/Vol] 32.1 g/dL Normal 32-36 [facility] Comment on above: Performed By: #### L 100.0100, L500.2500, L300.3900 #### [facility] [address] [place], [address] Mean platelet volume determi nationOrdered By: Navid Dominguez on 09-06-2024 Platelet mean volume (Bld) [Entitic vol] 9.4 fL Normal 6.2-12.0 [facility] Comment on above: Performed By: #### L 100.0100, L500.2500, L300.3900 #### [facility] [address] [place], [address] Monocyte percentageOrdered B y: Navid Dominguez on 09-06-2024 Monocytes/100 WBC (Bld) 9.1 % Normal 0-10 [facility] Comment on above: Performed By: #### L 100.0100, L500.2500, L300.3900 #### [facility] [address] [place], [address] Neutrophil percentageOrdered By: Navid Dominguez on 09-06-2024 Neutrophils/100 WBC (Bld) 66.8 % Normal 47-70 [facility] Comment on above: Performed By: #### L 100.0100, L500.2500, L300.3900 #### [facility] [address] [place], [address] Nucleated red blood cell per centageOrdered By: Navid Dominguez on 09-06-2024 Nucleated RBC/100 WBC (Bld) [Ratio] 0 % 0-5 [facility] Platelet countOrdered By: Cameron Dominguez on 09-06-2024 Platelets (Bld) [#/Vol] 325 10*3/uL Normal 150-450 [facility] Comment on above: Performed By: #### L 100.0100, L500.2500, L300.3900 #### [facility] [address] [place], [address] Potassium measurement (mass/ volume)Ordered By: Navid Dominguez on 09-06-2024 Potassium (Unsp spec) [Mass/Vol] 3.5 mmol/L 3.3-5.1 [facility] Prothrombin Time w/INRon INR Coag (PPP) [Relative time] 2.4 {INR} Normal [facility] Comment on above: Performed By: #### M 200.1000, L509.7001, L101.9900, L501.6710 #### [facility] [address] [place], [address] Prothrombin timeOrdered By: Navid Dominguez on 09-06-2024 PT Coag (PPP) [Time] 27.0 s High 11.7-14.9 [facility] Comment on above: Performed By: #### M 200.1000, L509.7001, L101.9900, L501.6710 #### [facility] [address] [place], [address] Serum creatinine measurement (mass/volume)Ordered By: Navid Dominguez on 09-06-2024 Creatinine [Mass/Vol] 0.73 mg/dL Normal 0.70-1.20 [facility] Comment on above: Performed By: #### M 200.1000, L509.7001, L101.9900, L501.6710 #### [facility] [address] [place], [address] Serum glucose measurement (m ass/volume)Ordered By: Navid Dominguez on 09-06-2024 Glucose [Mass/Vol] 109 mg/dL High 70-99 [facility] Comment on above: Performed By: #### M 200.1000, L509.7001, L101.9900, L501.6710 #### [facility] [address] [place], [address] Serum or plasma calcium alvaro urement (mass/volume)Ordered By: Navid Dominguez on 09-06-2024 Calcium [Mass/Vol] 8.7 mg/dL Normal 7.6-11.0 [facility] Comment on above: Performed By: #### M 200.1000, L509.7001, L101.9900, L501.6710 #### [facility] [address] [place], [address] Serum or plasma urea nitroge n measurement (mass/volume)Ordered By: Navid Dominguez on 09-06-2024 Urea nitrogen [Mass/Vol] 11 mg/dL Normal 4-19 [facility] Comment on above: Performed By: #### M 200.1000, L509.7001, L101.9900, L501.6710 #### [facility] [address] [place], [address] Sodium levelOrdered By: Kamilah Dominguez on 09-06-2024 Sodium [Moles/Vol] 141 mmol/L Normal 133-145 [facility] Comment on above: Performed By: #### M 200.1000, L509.7001, L101.9900, L501.6710 #### [facility] [address] [place], [address] White blood cell (WBC) count Ordered By: Navid Dominguez on 09-06-2024 WBC (Bld) [#/Vol] 7.8 10*3/uL Normal 4.4-11.0 [facility] Comment on above: Performed By: #### L 100.0100, L500.2500, L300.3900 #### [facility] [address] [place], [address] Basic Metabolic Profile (BMP )on 09-05-2024 BUN/CRE 13.4 RATIO Normal 10-20 [facility] Comment on above: Performed By: #### M 200.1000, L509.7001, L101.9900, L501.6710 #### [facility] [address] [place], [address] Calcium [Mass/Vol] 8.6 mg/dL Normal 7.6-11.0 [facility] Comment on above: Performed By: #### M 200.1000, L509.7001, L101.9900, L501.6710 #### [facility] [address] [place], [address] Chloride [Moles/Vol] 105 mmol/L Normal 98-108 [facility] Comment on above: Performed By: #### M 200.1000, L509.7001, L101.9900, L501.6710 #### [facility] [address] [place], [address] CO2 [Moles/Vol] 21.9 mmol/L Normal 21.0-32.0 [facility] Comment on above: Performed By: #### M 200.1000, L509.7001, L101.9900, L501.6710 #### [facility] [address] [place], [address] Creatinine [Mass/Vol] 0.62 mg/dL Low 0.70-1.20 [facility] Comment on above: Performed By: #### M 200.1000, L509.7001, L101.9900, L501.6710 #### [facility] [address] [place], [address] ECRCL 64.10 ml/min Normal 50-250 [facility] Comment on above: Performed By: #### M 200.1000, L509.7001, L101.9900, L501.6710 #### [facility] [address] [place], [address] GAP 12 Normal 5-15 [facility] Comment on above: Performed By: #### M 200.1000, L509.7001, L101.9900, L501.6710 #### [facility] [address] [place], [address] GFR/1.73 sq M.predicted among non-blacks MDRD (S/P/Bld) [Vol rate/Area] 91 mL/min/{1.73_m2} Normal >60 [facility] Comment on above: Result Comment: mL/m in/1.73m2 CKD-EPI Creatinine Equation (2020) Performed By: #### M 200.1000, L509.7001, L101.9900, L501.6710 #### [facility] [address] [place], [address] Glucose [Mass/Vol] 119 mg/dL High 70-99 [facility] Comment on above: Performed By: #### M 200.1000, L509.7001, L101.9900, L501.6710 #### [facility] [address] [place], [address] Potassium [Moles/Vol] 3.3 mmol/L Normal 3.3-5.1 [facility] Comment on above: Performed By: #### M 200.1000, L509.7001, L101.9900, L501.6710 #### [facility] [address] [place], [address] Sodium [Moles/Vol] 139 mmol/L Normal 133-145 [facility] Comment on above: Performed By: #### M 200.1000, L509.7001, L101.9900, L501.6710 #### [facility] [address] [place], [address] Urea nitrogen [Mass/Vol] 8 mg/dL Normal 4-19 [facility] Comment on above: Performed By: #### M 200.1000, L509.7001, L101.9900, L501.6710 #### [facility] [address] [place], [address] Bilirubin Test strip Ql (U)O rdered By: Marta Black on 09-05-2024 Bilirubin Ql (U) Negative Negative [facility] CBC W/Diff, Automatedon 08-21 Absolute Lymph 0.96 X10 3/uL Normal 0.83-4.51 [facility] Comment on above: Performed By: #### M 200.1000, L509.7001, L101.9900, L501.6710 #### [facility] [address] [place], [address] Absolute Neut 7.6 X10 3/uL Normal 2.0-7.7 [facility] Comment on above: Performed By: #### M 200.1000, L509.7001, L101.9900, L501.6710 #### [facility] [address] [place], [address] Basophils/100 WBC (Bld) 0.7 % Normal 0-1 [facility] Comment on above: Performed By: #### M 200.1000, L509.7001, L101.9900, L501.6710 #### [facility] [address] [place], [address] Eosinophils/100 WBC (Bld) 4.0 % Normal 0-5 [facility] Comment on above: Performed By: #### M 200.1000, L509.7001, L101.9900, L501.6710 #### [facility] [address] [place], [address] Erythrocyte distribution width (RBC) [Ratio] 17.6 % High 11.6-14.6 [facility] Comment on above: Performed By: #### M 200.1000, L509.7001, L101.9900, L501.6710 #### [facility] [address] [place], [address] Hematocrit (Bld) [Volume fraction] 35.3 % Low 40-54 [facility] Comment on above: Performed By: #### M 200.1000, L509.7001, L101.9900, L501.6710 #### [facility] [address] [place], [address] Hemoglobin (Bld) [Mass/Vol] 11.3 g/dL Low 13.0-16.5 [facility] Comment on above: Performed By: #### M 200.1000, L509.7001, L101.9900, L501.6710 #### [facility] [address] [place], [address] IG% 0.400 Normal 0.0-0.9 [facility] Comment on above: Result Comment: IG% - Immature Granulocytes (promyelocytes, myelocytes and metamyelocytes) > 1% indicates that a LEFT SHIFT is Present. Performed By: #### M 200.1000, L509.7001, L101.9900, L501.6710 #### [facility] [address] [place], [address] Lymphocytes/100 WBC (Bld) 9.8 % Low 19-41 [facility] Comment on above: Performed By: #### M 200.1000, L509.7001, L101.9900, L501.6710 #### [facility] [address] [place], [address] MCH (RBC) [Entitic mass] 24.4 pg Low 27.0-32.0 [facility] Comment on above: Performed By: #### M 200.1000, L509.7001, L101.9900, L501.6710 #### [facility] [address] [place], [address] MCHC (RBC) [Mass/Vol] 32.0 g/dL Normal 32-36 [facility] Comment on above: Performed By: #### M 200.1000, L509.7001, L101.9900, L501.6710 #### [facility] [address] [place], [address] MCV (RBC) [Entitic vol] 76.2 fL Low 80-94 [facility] Comment on above: Performed By: #### M 200.1000, L509.7001, L101.9900, L501.6710 #### [facility] [address] [place], [address] Monocytes/100 WBC (Bld) 7.9 % Normal 0-10 [facility] Comment on above: Performed By: #### M 200.1000, L509.7001, L101.9900, L501.6710 #### [facility] [address] [place], [address] Neutrophils/100 WBC (Bld) 77.2 % High 47-70 [facility] Comment on above: Performed By: #### M 200.1000, L509.7001, L101.9900, L501.6710 #### [facility] [address] [place], [address] Nucleated RBC (Bld) [#/Vol] 0 10*3/uL Normal 0-5 [facility] Comment on above: Performed By: #### M 200.1000, L509.7001, L101.9900, L501.6710 #### [facility] [address] [place], [address] Platelet mean volume (Bld) [Entitic vol] 9.3 fL Normal 6.2-12.0 [facility] Comment on above: Performed By: #### M 200.1000, L509.7001, L101.9900, L501.6710 #### [facility] [address] [place], [address] Platelets (Bld) [#/Vol] 329 10*3/uL Normal 150-450 [facility] Comment on above: Performed By: #### M 200.1000, L509.7001, L101.9900, L501.6710 #### [facility] [address] [place], [address] RBC (Bld) [#/Vol] 4.63 10*6/uL Normal 4.6-6.2 [facility] Comment on above: Performed By: #### M 200.1000, L509.7001, L101.9900, L501.6710 #### [facility] [address] [place], [address] RDW SD 47.9 fl High 35.1-43.9 [facility] Comment on above: Performed By: #### M 200.1000, L509.7001, L101.9900, L501.6710 #### [facility] [address] [place], [address] WBC (Bld) [#/Vol] 9.8 10*3/uL Normal 4.4-11.0 [facility] Comment on above: Performed By: #### M 200.1000, L509.7001, L101.9900, L501.6710 #### [facility] [address] [place], [address] Ketones Test strip Ql (U)Ord ered By: Marta Black on 09-05-2024 Ketones Ql (U) Negative Negative [facility] Microscopic analysis of urin e for red blood cells (RBC)Ordered By: Marta Black on 09-05-2024 Microscopic analysis of urine for red blood cells (RBC) 0-5 SEEN /hpf 0-5 [facility] Mucus LM Ql (Urine sed)Order ed By: Marta Black on 09-05-2024 Mucus Ql (Urine sed) 0 SEEN /hpf [facility] Nitrite Test strip Ql (U)Ord ered By: Marta Black on 09-05-2024 Nitrite Ql (U) Negative Negative [facility] Protein Test strip Ql (U)Ord ered By: Marta Black on 09-05-2024 Protein Ql (U) 15 mg/dl High Negative [facility] Prothrombin Time w/INRon INR Coag (PPP) [Relative time] 2.2 {INR} Normal [facility] Comment on above: Performed By: #### M 200.1000, L509.7001, L101.9900, L501.6710 #### [facility] [address] [place], [address] PT Coag (PPP) [Time] 24.7 s High 11.7-14.9 [facility] Comment on above: Performed By: #### M 200.1000, L509.7001, L101.9900, L501.6710 #### [facility] [address] [place], [address] Squamous epithelial cells de tection in urine sediment by light microscopyOrdered By: Marta Black on 09-05-2024 Epithelial cells.squamous LM Ql (Urine sed) 0 SEEN /hpf 0-5 [facility] Urinalysis, Completeon 09-05 BACTERIA RARE Normal None Seen [facility] Comment on above: Order Comment: CLEAN CATCH Performed By: #### M 200.1000, L509.7001, L101.9900, L501.6710 #### [facility] [address] [place], [address] RBC 0-5 SEEN Normal 0-5 [facility] Comment on above: Order Comment: CLEAN CATCH Performed By: #### M 200.1000, L509.7001, L101.9900, L501.6710 #### [facility] [address] [place], [address] WBC 0-5 SEEN Normal 0-5 [facility] Comment on above: Order Comment: CLEAN CATCH Performed By: #### M 200.1000, L509.7001, L101.9900, L501.6710 #### [facility] [address] [place], [address] BILIRUBIN URINE Negative Normal Negative [facility] Comment on above: Order Comment: CLEAN CATCH Performed By: #### M 200.1000, L509.7001, L101.9900, L501.6710 #### [facility] [address] [place], [address] Clarity (U) Clear Normal Clear [facility] Comment on above: Order Comment: CLEAN CATCH Performed By: #### M 200.1000, L509.7001, L101.9900, L501.6710 #### [facility] [address] [place], [address] Color (U) Straw Normal Yellow [facility] Comment on above: Order Comment: CLEAN CATCH Performed By: #### M 200.1000, L509.7001, L101.9900, L501.6710 #### [facility] [address] [place], [address] GLUCOSE, UR Normal Normal Normal [facility] Comment on above: Order Comment: CLEAN CATCH Performed By: #### M 200.1000, L509.7001, L101.9900, [id number] #### [facility] [address] [place], [address] KETONE UR Negative Normal Negative [facility] Comment on above: Order Comment: CLEAN CATCH Performed By: #### M 200.1000, L509.7001, L101.9900, L501.6710 #### [facility] [address] [place], [address] LEUK ESTERASE Negative Normal Negative [facility] Comment on above: Order Comment: CLEAN CATCH Performed By: #### M 200.1000, L509.7001, L101.9900, L501.6710 #### [facility] [address] [place], [address] Nitrite Ql (U) Negative Normal Negative [facility] Comment on above: Order Comment: CLEAN CATCH Performed By: #### M 200.1000, L509.7001, L101.9900, L501.6710 #### [facility] [address] [place], [address] OCCULT BLOOD-UR 25 /ul Abnormal Negative [facility] Comment on above: Order Comment: CLEAN CATCH Performed By: #### M 200.1000, L509.7001, L101.9900, L501.6710 #### [facility] [address] [place], [address] pH UR 7.0 Normal 5.0 - 8.0 [facility] Comment on above: Order Comment: CLEAN CATCH Performed By: #### M 200.1000, L509.7001, L101.9900, L501.6710 #### [facility] [address] [place], [address] PROT DIPSTX 15 mg/dl Abnormal Negative [facility] Comment on above: Order Comment: CLEAN CATCH Performed By: #### M 200.1000, L509.7001, L101.9900, [id number] #### [facility] [address] [place], [address] SP.GR. DIPSTX 1.005 Normal 1.002-1.03 0 [facility] Comment on above: Order Comment: CLEAN CATCH Performed By: #### M 200.1000, L509.7001, L101.9900, [id number] #### [facility] [address] [place], [address] UROBILI Normal Normal Normal [facility] Comment on above: Order Comment: CLEAN CATCH Performed By: #### M 200.1000, L509.7001, L101.9900, L501.6710 #### [facility] [address] [place], [address] EPI,SQUAMOUS 0 SEEN Normal 0-5 [facility] Comment on above: Order Comment: CLEAN CATCH Performed By: #### M 200.1000, L509.7001, L101.9900, L501.6710 #### [facility] [address] [place], [address] Mucus Ql (Urine sed) 0 SEEN Normal [facility] Comment on above: Order Comment: CLEAN CATCH Performed By: #### M 200.1000, L509.7001, L101.9900, L501.6710 #### [facility] [address] [place], [address] Urine clarityOrdered By: Magnolia Black on 09-05-2024 Clarity (U) Clear Clear [facility] Urine color determinationOrd ered By: Marta Black on 09-05-2024 Color (U) Straw Yellow [facility] Urine glucose detectionOrder ed By: Marta Black on 09-05-2024 Glucose Ql (U) Normal mg/dl Normal [facility] Urine leukocyte esterase det ection by dipstickOrdered By: Marta Black on 09-05-2024 Leukocyte esterase Test strip Ql (U) Negative Negative [facility] Urine pHOrdered By: Marta Black on 09-05-2024 pH (U) 7.0 [pH] 5.0 - 8.0 [facility] Urine sediment bacteria coun t by microscopy (number/high power field)Ordered By: Marta Black on 09-05-2024 Bacteria LM.HPF (Urine sed) [#/Area] RARE /hpf None Seen [facility] Urine specific gravity measu rementOrdered By: Marta Black on 09-05-2024 Specific gravity (U) [Rel density] 1.005 1.002-1.03 0 [facility] Urine urobilinogen measureme ntOrdered By: Marta Black on 09-05-2024 Urobilinogen Ql (U) Normal mg/dl Normal [facility] White blood cell countOrdere d By: Marta Black on 09-05-2024 White blood cell count 0-5 SEEN /hpf 0-5 [facility] Basic Metabolic Profile (BMP )on 09-04-2024 BUN/CRE 17.3 RATIO Normal 10-20 [facility] Comment on above: Performed By: #### M 200.1000, L509.7001, L101.9900, L501.6710 #### [facility] [address] [place], [address] Calcium [Mass/Vol] 8.2 mg/dL Normal 7.6-11.0 [facility] Comment on above: Performed By: #### M 200.1000, L509.7001, L101.9900, L501.6710 #### [facility] [address] [place], [address] Chloride [Moles/Vol] 107 mmol/L Normal 98-108 [facility] Comment on above: Performed By: #### M 200.1000, L509.7001, L101.9900, L501.6710 #### [facility] [address] [place], [address] CO2 [Moles/Vol] 20.9 mmol/L Low 21.0-32.0 [facility] Comment on above: Performed By: #### M 200.1000, L509.7001, L101.9900, L501.6710 #### [facility] [address] [place], [address] Creatinine [Mass/Vol] 0.72 mg/dL Normal 0.70-1.20 [facility] Comment on above: Performed By: #### M 200.1000, L509.7001, L101.9900, L501.6710 #### [facility] [address] [place], [address] ECRCL 64.10 ml/min Normal 50-250 [facility] Comment on above: Performed By: #### M 200.1000, L509.7001, L101.9900, [id number] #### [facility] [address] [place], [address] GAP 11 Normal 5-15 [facility] Comment on above: Performed By: #### M 200.1000, L509.7001, L101.9900, L501.6710 #### [facility] [address] [place], [address] GFR/1.73 sq M.predicted among non-blacks MDRD (S/P/Bld) [Vol rate/Area] 87 mL/min/{1.73_m2} Normal >60 [facility] Comment on above: Result Comment: mL/m in/1.73m2 CKD-EPI Creatinine Equation (2020) Performed By: #### M 200.1000, L509.7001, L101.9900, [id number] #### [facility] [address] [place], [address] Glucose [Mass/Vol] 120 mg/dL High 70-99 [facility] Comment on above: Performed By: #### M 200.1000, L509.7001, L101.9900, L501.6710 #### [facility] [address] [place], [address] Potassium [Moles/Vol] 3.5 mmol/L Normal 3.3-5.1 [facility] Comment on above: Performed By: #### M 200.1000, L509.7001, L101.9900, L501.6710 #### [facility] [address] [place], [address] Sodium [Moles/Vol] 139 mmol/L Normal 133-145 [facility] Comment on above: Performed By: #### M 200.1000, L509.7001, L101.9900, L501.6710 #### [facility] [address] [place], [address] Urea nitrogen [Mass/Vol] 12 mg/dL Normal 4-19 [facility] Comment on above: Performed By: #### M 200.1000, L509.7001, L101.9900, L501.6710 #### [facility] [address] [place], [address] CBC W/Diff, Automatedon 06-03 27-2024 Absolute Lymph 0.89 X10 3/uL Normal 0.83-4.51 [facility] Comment on above: Performed By: #### M 200.1000, L509.7001, L101.9900, L501.6710 #### [facility] [address] [place], [address] Absolute Neut 8.9 X10 3/uL High 2.0-7.7 [facility] Comment on above: Performed By: #### M 200.1000, L509.7001, L101.9900, L501.6710 #### [facility] [address] [place], [address] Basophils/100 WBC (Bld) 0.8 % Normal 0-1 [facility] Comment on above: Performed By: #### M 200.1000, L509.7001, L101.9900, L501.6710 #### [facility] [address] [place], [address] Eosinophils/100 WBC (Bld) 5.3 % High 0-5 [facility] Comment on above: Performed By: #### M 200.1000, L509.7001, L101.9900, L501.6710 #### [facility] [address] [place], [address] Erythrocyte distribution width (RBC) [Ratio] 17.5 % High 11.6-14.6 [facility] Comment on above: Performed By: #### M 200.1000, L509.7001, L101.9900, L501.6710 #### [facility] [address] [place], [address] Hematocrit (Bld) [Volume fraction] 33.3 % Low 40-54 [facility] Comment on above: Performed By: #### M 200.1000, L509.7001, L101.9900, L501.6710 #### [facility] [address] [place], [address] Hemoglobin (Bld) [Mass/Vol] 10.7 g/dL Low 13.0-16.5 [facility] Comment on above: Performed By: #### M 200.1000, L509.7001, L101.9900, L501.6710 #### [facility] [address] [place], [address] IG% 0.400 Normal 0.0-0.9 [facility] Comment on above: Result Comment: IG% - Immature Granulocytes (promyelocytes, myelocytes and metamyelocytes) > 1% indicates that a LEFT SHIFT is Present. Performed By: #### M 200.1000, L509.7001, L101.9900, L501.6710 #### [facility] [address] [place], [address] Lymphocytes/100 WBC (Bld) 7.8 % Low 19-41 [facility] Comment on above: Performed By: #### M 200.1000, L509.7001, L101.9900, L501.6710 #### [facility] [address] [place], [address] MCH (RBC) [Entitic mass] 24.6 pg Low 27.0-32.0 [facility] Comment on above: Performed By: #### M 200.1000, L509.7001, L101.9900, L501.6710 #### [facility] [address] [place], [address] MCHC (RBC) [Mass/Vol] 32.1 g/dL Normal 32-36 [facility] Comment on above: Performed By: #### M 200.1000, L509.7001, L101.9900, L501.6710 #### [facility] [address] [place], [address] MCV (RBC) [Entitic vol] 76.6 fL Low 80-94 [facility] Comment on above: Performed By: #### M 200.1000, L509.7001, L101.9900, L501.6710 #### [facility] [address] [place], [address] Monocytes/100 WBC (Bld) 7.7 % Normal 0-10 [facility] Comment on above: Performed By: #### M 200.1000, L509.7001, L101.9900, L501.6710 #### [facility] [address] [place], [address] Neutrophils/100 WBC (Bld) 78.0 % High 47-70 [facility] Comment on above: Performed By: #### M 200.1000, L509.7001, L101.9900, L501.6710 #### [facility] [address] [place], [address] Nucleated RBC (Bld) [#/Vol] 0 10*3/uL Normal 0-5 [facility] Comment on above: Performed By: #### M 200.1000, L509.7001, L101.9900, L501.6710 #### [facility] [address] [place], [address] Platelet mean volume (Bld) [Entitic vol] 10.6 fL Normal 6.2-12.0 [facility] Comment on above: Performed By: #### M 200.1000, L509.7001, L101.9900, L501.6710 #### [facility] [address] [place], [address] Platelets (Bld) [#/Vol] 305 10*3/uL Normal 150-450 [facility] Comment on above: Performed By: #### M 200.1000, L509.7001, L101.9900, L501.6710 #### [facility] [address] [place], [address] RBC (Bld) [#/Vol] 4.35 10*6/uL Low 4.6-6.2 [facility] Comment on above: Performed By: #### M 200.1000, L509.7001, L101.9900, L501.6710 #### [facility] [address] [place], [address] RDW SD 48.3 fl High 35.1-43.9 [facility] Comment on above: Performed By: #### M 200.1000, L509.7001, L101.9900, L501.6710 #### [facility] [address] [place], [address] WBC (Bld) [#/Vol] 11.4 10*3/uL High 4.4-11.0 [facility] Comment on above: Performed By: #### M 200.1000, L509.7001, L101.9900, L501.6710 #### [facility] [address] [place], [address] Prothrombin Time w/INRon INR Coag (PPP) [Relative time] 1.9 {INR} Normal [facility] Comment on above: Performed By: #### L 300.3900 #### [facility] [address] [place], [address] PT Coag (PPP) [Time] 21.8 s High 11.7-14.9 [facility] Comment on above: Performed By: #### L 300.3900 #### [facility] [address] [place], [address] Basic Metabolic Profile (BMP )on 09-03-2024 BUN/CRE 13.3 RATIO Normal 10-20 [facility] Comment on above: Performed By: #### M 200.1000, L509.7001, L101.9900, L501.6710 #### [facility] [address] [place], [address] Calcium [Mass/Vol] 8.5 mg/dL Normal 7.6-11.0 [facility] Comment on above: Performed By: #### M 200.1000, L509.7001, L101.9900, L501.6710 #### [facility] [address] [place], [address] Chloride [Moles/Vol] 104 mmol/L Normal 98-108 [facility] Comment on above: Performed By: #### M 200.1000, L509.7001, L101.9900, L501.6710 #### [facility] [address] [place], [address] CO2 [Moles/Vol] 19.1 mmol/L Low 21.0-32.0 [facility] Comment on above: Performed By: #### M 200.1000, L509.7001, L101.9900, L501.6710 #### [facility] [address] [place], [address] Creatinine [Mass/Vol] 0.74 mg/dL Normal 0.70-1.20 [facility] Comment on above: Performed By: #### M 200.1000, L509.7001, L101.9900, L501.6710 #### [facility] [address] [place], [address] ECRCL 64.10 ml/min Normal 50-250 [facility] Comment on above: Performed By: #### M 200.1000, L509.7001, L101.9900, L501.6710 #### [facility] [address] [place], [address] GAP 13 Normal 5-15 [facility] Comment on above: Performed By: #### M 200.1000, L509.7001, L101.9900, L501.6710 #### [facility] [address] [place], [address] GFR/1.73 sq M.predicted among non-blacks MDRD (S/P/Bld) [Vol rate/Area] 87 mL/min/{1.73_m2} Normal >60 [facility] Comment on above: Result Comment: mL/m in/1.73m2 CKD-EPI Creatinine Equation (2020) Performed By: #### M 200.1000, L509.7001, L101.9900, L501.6710 #### [facility] [address] [place], [address] Glucose [Mass/Vol] 111 mg/dL High 70-99 [facility] Comment on above: Performed By: #### M 200.1000, L509.7001, L101.9900, L501.6710 #### [facility] [address] [place], [address] Potassium [Moles/Vol] 3.5 mmol/L Normal 3.3-5.1 [facility] Comment on above: Performed By: #### M 200.1000, L509.7001, L101.9900, L501.6710 #### [facility] [address] [place], [address] Sodium [Moles/Vol] 137 mmol/L Normal 133-145 [facility] Comment on above: Performed By: #### M 200.1000, L509.7001, L101.9900, L501.6710 #### [facility] [address] [place], [address] Urea nitrogen [Mass/Vol] 10 mg/dL Normal 4-19 [facility] Comment on above: Performed By: #### M 200.1000, L509.7001, L101.9900, L501.6710 #### [facility] [address] [place], [address] CBC W/Diff, Automatedon 08-21 Absolute Lymph 0.82 X10 3/uL Low 0.83-4.51 [facility] Comment on above: Performed By: #### M 200.1000, L509.7001, L101.9900, L501.6710 #### [facility] [address] [place], [address] Absolute Neut 10.2 X10 3/uL High 2.0-7.7 [facility] Comment on above: Performed By: #### M 200.1000, L509.7001, L101.9900, L501.6710 #### [facility] [address] [place], [address] Basophils/100 WBC (Bld) 0.7 % Normal 0-1 [facility] Comment on above: Performed By: #### M 200.1000, L509.7001, L101.9900, L501.6710 #### [facility] [address] [place], [address] Eosinophils/100 WBC (Bld) 2.8 % Normal 0-5 [facility] Comment on above: Performed By: #### M 200.1000, L509.7001, L101.9900, L501.6710 #### [facility] [address] [place], [address] Erythrocyte distribution width (RBC) [Ratio] 17.5 % High 11.6-14.6 [facility] Comment on above: Performed By: #### M 200.1000, L509.7001, L101.9900, L501.6710 #### [facility] [address] [place], [address] Hematocrit (Bld) [Volume fraction] 35.6 % Low 40-54 [facility] Comment on above: Performed By: #### M 200.1000, L509.7001, L101.9900, L501.6710 #### [facility] [address] [place], [address] Hemoglobin (Bld) [Mass/Vol] 11.3 g/dL Low 13.0-16.5 [facility] Comment on above: Performed By: #### M 200.1000, L509.7001, L101.9900, L501.6710 #### [facility] [address] [place], [address] IG% 0.400 Normal 0.0-0.9 [facility] Comment on above: Result Comment: IG% - Immature Granulocytes (promyelocytes, myelocytes and metamyelocytes) > 1% indicates that a LEFT SHIFT is Present. Performed By: #### M 200.1000, L509.7001, L101.9900, L501.6710 #### [facility] [address] [place], [address] Lymphocytes/100 WBC (Bld) 6.7 % Low 19-41 [facility] Comment on above: Performed By: #### M 200.1000, L509.7001, L101.9900, L501.6710 #### [facility] [address] [place], [address] MCH (RBC) [Entitic mass] 24.7 pg Low 27.0-32.0 [facility] Comment on above: Performed By: #### M 200.1000, L509.7001, L101.9900, L501.6710 #### [facility] [address] [place], [address] MCHC (RBC) [Mass/Vol] 31.7 g/dL Low 32-36 [facility] Comment on above: Performed By: #### M 200.1000, L509.7001, L101.9900, L501.6710 #### [facility] [address] [place], [address] MCV (RBC) [Entitic vol] 77.7 fL Low 80-94 [facility] Comment on above: Performed By: #### M 200.1000, L509.7001, L101.9900, L501.6710 #### [facility] [address] [place], [address] Monocytes/100 WBC (Bld) 6.0 % Normal 0-10 [facility] Comment on above: Performed By: #### M 200.1000, L509.7001, L101.9900, L501.6710 #### [facility] [address] [place], [address] Neutrophils/100 WBC (Bld) 83.4 % High 47-70 [facility] Comment on above: Performed By: #### M 200.1000, L509.7001, L101.9900, L501.6710 #### [facility] [address] [place], [address] Nucleated RBC (Bld) [#/Vol] 0 10*3/uL Normal 0-5 [facility] Comment on above: Performed By: #### M 200.1000, L509.7001, L101.9900, L501.6710 #### [facility] [address] [place], [address] Platelet mean volume (Bld) [Entitic vol] 9.9 fL Normal 6.2-12.0 [facility] Comment on above: Performed By: #### M 200.1000, L509.7001, L101.9900, L501.6710 #### [facility] [address] [place], [address] Platelets (Bld) [#/Vol] 252 10*3/uL Normal 150-450 [facility] Comment on above: Performed By: #### M 200.1000, L509.7001, L101.9900, L501.6710 #### [facility] [address] [place], [address] RBC (Bld) [#/Vol] 4.58 10*6/uL Low 4.6-6.2 [facility] Comment on above: Performed By: #### M 200.1000, L509.7001, L101.9900, L501.6710 #### [facility] [address] [place], [address] RDW SD 48.2 fl High 35.1-43.9 [facility] Comment on above: Performed By: #### M 200.1000, L509.7001, L101.9900, L501.6710 #### [facility] [address] [place], [address] WBC (Bld) [#/Vol] 12.3 10*3/uL High 4.4-11.0 [facility] Comment on above: Performed By: #### M 200.1000, L509.7001, L101.9900, L501.6710 #### [facility] [address] [place], [address] Prothrombin Time w/INRon INR Coag (PPP) [Relative time] 1.8 {INR} Normal [facility] Comment on above: Performed By: #### L 300.3900 #### [facility] [address] [place], [address] PT Coag (PPP) [Time] 20.9 s High 11.7-14.9 [facility] Comment on above: Performed By: #### L 300.3900 #### [facility] [address] [place], [address] Trough vancomycin levelOrder ed By: Marta Black on 09-03-2024 Vancomycin trough [Mass/Vol] 8.2 ug/mL 5.0-15.0 [facility] Comment on above: Recommended goal tro ugh [...] therapy recommended for serious lifethreatening infections include:- Omeffbchde-Tbziekkhjcvv-Hohpsylup (Ventilator/Healtcare Associated)-Sepsis PLEASE CONTACT PHARMACY SERVICES (#[id number]) FOR INTERPRETATIONOF RESULTS. Vancomycin, Trough Levelon 0 09-03-2024 VANCO, TROUGH 8.2 ug/mL Normal 5.0-15.0 [facility] Comment on above: Order Comment: Comme nts: Trough to be drawn 30 mins prior to scheduled [id number] Result Comment: Ilya mmended goal trough ranges [...] (Ventilator/Healtcare Associated) -Sepsis PLEASE CONTACT PHARMACY SERVICES (#[id number]) FOR INTERPRETATION OF RESULTS. Performed By: #### M 200.1000, L509.7001, L101.9900, L501.6710 #### [facility] [address] [place], [address] Basic Metabolic Profile (BMP )on 09-02-2024 BUN/CRE 18.9 RATIO Normal 10-20 [facility] Comment on above: Performed By: #### M 200.1000, L509.7001, L101.9900, L501.6710 #### [facility] [address] [place], [address] Calcium [Mass/Vol] 8.5 mg/dL Normal 7.6-11.0 [facility] Comment on above: Performed By: #### M 200.1000, L509.7001, L101.9900, L501.6710 #### [facility] [address] [place], [address] Chloride [Moles/Vol] 105 mmol/L Normal 98-108 [facility] Comment on above: Performed By: #### M 200.1000, L509.7001, L101.9900, L501.6710 #### [facility] [address] [place], [address] CO2 [Moles/Vol] 14.2 mmol/L Low 21.0-32.0 [facility] Comment on above: Performed By: #### M 200.1000, L509.7001, L101.9900, L501.6710 #### [facility] [address] [place], [address] Creatinine [Mass/Vol] 0.75 mg/dL Normal 0.70-1.20 [facility] Comment on above: Performed By: #### M 200.1000, L509.7001, L101.9900, L501.6710 #### [facility] Laboratory [address] [place], [address] ECRCL 64.10 ml/min Normal 50-250 [facility] Comment on above: Performed By: #### M 200.1000, L509.7001, L101.9900, L501.6710 #### [facility] Laboratory [address] [place], [address] GAP 15 Normal 5-15 [facility] Comment on above: Performed By: #### M 200.1000, L509.7001, L101.9900, L501.6710 #### [facility] Laboratory [address] [place], [address] GFR/1.73 sq M.predicted among non-blacks MDRD (S/P/Bld) [Vol rate/Area] 86 mL/min/{1.73_m2} Normal >60 [facility] Comment on above: Result Comment: mL/m in/1.73m2 CKD-EPI Creatinine Equation (2020) Performed By: #### M 200.1000, L509.7001, L101.9900, L501.6710 #### [facility] Laboratory [address] [place], [address] Glucose [Mass/Vol] 105 mg/dL High 70-99 [facility] Comment on above: Performed By: #### M 200.1000, L509.7001, L101.9900, L501.6710 #### [facility] Laboratory [address] [place], [address] Potassium [Moles/Vol] 4.3 mmol/L Normal 3.3-5.1 [facility] Comment on above: Result Comment: Hemo lysis present, Results??could be affected. ?? Performed By: #### M 200.1000, L509.7001, L101.9900, L501.6710 #### [facility] Laboratory [address] [place], [address] Sodium [Moles/Vol] 135 mmol/L Normal 133-145 [facility] Comment on above: Performed By: #### M 200.1000, L509.7001, L101.9900, L501.6710 #### [facility] Laboratory [address] [place], [address] Urea nitrogen [Mass/Vol] 14 mg/dL Normal 4-19 [facility] Comment on above: Performed By: #### M 200.1000, L509.7001, L101.9900, L501.6710 #### [facility] Laboratory [address] [place], [address] CBC W/Diff, Automatedon 06-03 25-2024 Absolute Lymph 0.52 X10 3/uL Low 0.83-4.51 [facility] Comment on above: Performed By: #### M 200.1000, L509.7001, L101.9900, L501.6710 #### [facility] Laboratory [address] [place], [address] Absolute Neut 12.1 X10 3/uL High 2.0-7.7 [facility] Comment on above: Performed By: #### M 200.1000, L509.7001, L101.9900, L501.6710 #### [facility] Laboratory [address] [place], [address] Basophils/100 WBC (Bld) 0.6 % Normal 0-1 [facility] Comment on above: Performed By: #### M 200.1000, L509.7001, L101.9900, L501.6710 #### [facility] Laboratory [address] [place], [address] Eosinophils/100 WBC (Bld) 2.2 % Normal 0-5 [facility] Comment on above: Performed By: #### M 200.1000, L509.7001, L101.9900, L501.6710 #### [facility] Laboratory [address] [place], [address] Erythrocyte distribution width (RBC) [Ratio] 17.8 % High 11.6-14.6 [facility] Comment on above: Performed By: #### M 200.1000, L509.7001, L101.9900, L501.6710 #### [facility] Laboratory [address] [place], [address] Hematocrit (Bld) [Volume fraction] 39.9 % Low 40-54 [facility] Comment on above: Performed By: #### M 200.1000, L509.7001, L101.9900, L501.6710 #### [facility] Laboratory [address] [place], [address] Hemoglobin (Bld) [Mass/Vol] 11.9 g/dL Low 13.0-16.5 [facility] Comment on above: Performed By: #### M 200.1000, L509.7001, L101.9900, L501.6710 #### [facility] Laboratory [address] [place], [address] IG% 0.700 Normal 0.0-0.9 [facility] Comment on above: Result Comment: IG% - Immature Granulocytes (promyelocytes, myelocytes and metamyelocytes) > 1% indicates that a LEFT SHIFT is Present. Performed By: #### M 200.1000, L509.7001, L101.9900, L501.6710 #### [facility] Laboratory [address] [place], [address] Lymphocytes/100 WBC (Bld) 3.8 % Low 19-41 [facility] Comment on above: Performed By: #### M 200.1000, L509.7001, L101.9900, L501.6710 #### [facility] Laboratory [address] [place], [address] MCH (RBC) [Entitic mass] 24.5 pg Low 27.0-32.0 [facility] Comment on above: Performed By: #### M 200.1000, L509.7001, L101.9900, L501.6710 #### [facility] Laboratory [address] [place], [address] MCHC (RBC) [Mass/Vol] 29.8 g/dL Low 32-36 [facility] Comment on above: Performed By: #### M 200.1000, L509.7001, L101.9900, L501.6710 #### [facility] Laboratory [address] [place], [address] MCV (RBC) [Entitic vol] 82.3 fL Normal 80-94 [facility] Comment on above: Performed By: #### M 200.1000, L509.7001, L101.9900, L501.6710 #### [facility] Laboratory [address] [place], [address] Monocytes/100 WBC (Bld) 4.8 % Normal 0-10 [facility] Comment on above: Performed By: #### M 200.1000, L509.7001, L101.9900, L501.6710 #### [facility] Laboratory [address] [place], [address] Neutrophils/100 WBC (Bld) 87.9 % High 47-70 [facility] Comment on above: Performed By: #### M 200.1000, L509.7001, L101.9900, L501.6710 #### [facility] Laboratory [address] [place], [address] Nucleated RBC (Bld) [#/Vol] 0 10*3/uL Normal 0-5 [facility] Comment on above: Performed By: #### M 200.1000, L509.7001, L101.9900, L501.6710 #### [facility] Laboratory [address] [place], [address] Platelet mean volume (Bld) [Entitic vol] 10.6 fL Normal 6.2-12.0 [facility] Comment on above: Performed By: #### M 200.1000, L509.7001, L101.9900, L501.6710 #### [facility] Laboratory [address] [place], [address] Platelets (Bld) [#/Vol] 227 10*3/uL Normal 150-450 [facility] Comment on above: Performed By: #### M 200.1000, L509.7001, L101.9900, L501.6710 #### [facility] Laboratory [address] [place], [address] RBC (Bld) [#/Vol] 4.85 10*6/uL Normal 4.6-6.2 [facility] Comment on above: Performed By: #### M 200.1000, L509.7001, L101.9900, L501.6710 #### [facility] Laboratory [address] [place], [address] RDW SD 52.3 fl High 35.1-43.9 [facility] Comment on above: Performed By: #### M 200.1000, L509.7001, L101.9900, L501.6710 #### [facility] Laboratory [address] [place], [address] WBC (Bld) [#/Vol] 13.8 10*3/uL High 4.4-11.0 [facility] Comment on above: Performed By: #### M 200.1000, L509.7001, L101.9900, L501.6710 #### [facility] Laboratory [address] [place], [address] Prothrombin Time w/INRon INR Coag (PPP) [Relative time] 1.9 {INR} Normal [facility] Comment on above: Performed By: #### M 200.1000, L509.7001, L101.9900, L501.6710 #### [facility] Laboratory [address] [place], [address] PT Coag (PPP) [Time] 22.1 s High 11.7-14.9 [facility] Comment on above: Performed By: #### M 200.1000, L509.7001, L101.9900, L501.6710 #### [facility] Laboratory [address] [place], [address] RESPIRATORY PANEL MOLECULARo n 09-02-2024 RP PANEL ADENOVIRUS Not Detected INFLUENZA A Not Detected INFLUENZA A (SUBTYPE H1) Not Detected INFLUENZA A (SUBTYPE H3) Not Detected INFLUENZA B Not Detected HUMAN METAPHNEUMO Not Detected PARAINFLUENZA 1 Not Detected PARAINFLUENZA 2 Not Detected PARAINFLUENZA 3 Not Detected PARAINFLUENZA 4 Not Detected RHINOVIRUS Not Detected RSV A Not Detected RSV B Not Detected Normal [facility] Comment on above: Performed By: #### M 200.1000, L509.7001, L101.9900, L501.6710 #### [facility] Laboratory [address] [place], [address] Absolute lymphocyte countOrd ered By: Inderjit Gillespie on 09-01-2024 Lymphocytes Auto (Unsp spec) [#/Vol] 0.62 10*3/uL Low 0.83-4.51 [facility] Absolute neutrophil countOrd ered By: Inderjit Gillespie on 09-01-2024 Neutrophils (Bld) [#/Vol] 11.3 10*3/uL High 2.0-7.7 [facility] Anion gap in Serum or Plasma Ordered By: Inderjit Gillespie on 09-01-2024 Anion gap [Moles/Vol] 10 mmol/L 5-15 [facility] Automated lymphocyte count a s percentage of total leukocytesOrdered By: Inderjit Gillespie on 09-01-2024 Lymphocytes/100 WBC Auto (Unsp spec) 4.8 % Low 19-41 [facility] BUN/creatinine ratioOrdered By: Inderjit Gillespie on 09-01-2024 Urea nitrogen/Creatinine [Mass ratio] 21.6 mg/mg High 10- [facility] Basic Metabolic Profile (BMP )on 09-01-2024 BUN/CRE 21.6 RATIO High 10- [facility] Comment on above: Performed By: #### M 200.1000, L509.7001, L101.9900, L501.6710 #### [facility] Laboratory [address] [place], [address] Calcium [Mass/Vol] 8.8 mg/dL Normal 7.6-11.0 [facility] Comment on above: Performed By: #### M 200.1000, L509.7001, L101.9900, L501.6710 #### [facility] Laboratory [address] [place], [address] Chloride [Moles/Vol] 105 mmol/L Normal 98-108 [facility] Comment on above: Performed By: #### M 200.1000, L509.7001, L101.9900, L501.6710 #### [facility] Laboratory [address] [place], [address] CO2 [Moles/Vol] 24.3 mmol/L Normal 21.0-32.0 [facility] Comment on above: Performed By: #### M 200.1000, L509.7001, L101.9900, L501.6710 #### [facility] Laboratory [address] [place], [address] Creatinine [Mass/Vol] 0.77 mg/dL Normal 0.70-1.20 [facility] Comment on above: Performed By: #### M 200.1000, L509.7001, L101.9900, L501.6710 #### [facility] Laboratory [address] [place], [address] ECRCL 68.71 ml/min Normal 50-250 [facility] Comment on above: Performed By: #### M 200.1000, L509.7001, L101.9900, L501.6710 #### [facility] Laboratory [address] [place], [address] GAP 10 Normal 5-15 [facility] Comment on above: Performed By: #### M 200.1000, L509.7001, L101.9900, L501.6710 #### [facility] Laboratory [address] [place], [address] GFR/1.73 sq M.predicted among non-blacks MDRD (S/P/Bld) [Vol rate/Area] 86 mL/min/{1.73_m2} Normal >60 [facility] Comment on above: Result Comment: mL/m in/1.73m2 CKD-EPI Creatinine Equation (2020) Performed By: #### M 200.1000, L509.7001, L101.9900, L501.6710 #### [facility] Laboratory [address] [place], [address] Glucose [Mass/Vol] 112 mg/dL High 70-99 [facility] Comment on above: Performed By: #### M 200.1000, L509.7001, L101.9900, L501.6710 #### [facility] Laboratory [address] [place], [address] Potassium [Moles/Vol] 3.7 mmol/L Normal 3.3-5.1 [facility] Comment on above: Performed By: #### M 200.1000, L509.7001, L101.9900, L501.6710 #### [facility] Laboratory [address] [place], [address] Sodium [Moles/Vol] 139 mmol/L Normal 133-145 [facility] Comment on above: Performed By: #### M 200.1000, L509.7001, L101.9900, L501.6710 #### [facility] Laboratory [address] [place], [address] Urea nitrogen [Mass/Vol] 17 mg/dL Normal 4-19 [facility] Comment on above: Performed By: #### M 200.1000, L509.7001, L101.9900, L501.6710 #### [facility] Laboratory [address] [place], [address] Basophil percentageOrdered B y: Inderjit Gillespie on 09-01-2024 Basophils/100 WBC (Bld) 0.4 % 0-1 [facility] Bilirubin Test strip Ql (U)O rdered By: Inderjit Gillespie on 09-01-2024 Bilirubin Ql (U) Negative Negative [facility] Blood cultureOrdered By: Magnolia Black on 09-01-2024 Bacteria identified Cx Nom (Bld) No growth in 5 days. [facility] Brain/Head without Contrasto n 09-01-2024 Brain/Head without Contrast [facility] Imaging Services [address] [facility] [place], [place] [id number] Brain/Head without Contrast MR#: [id number] Acct: [id number] Name: ROBY FLORES Rep #: [id number] : 1935 M 89 From: Jose harris MD PCP: Dr. Stas Mora MD Status: REG ER Study: Brain/Head without Contrast Date of Exam: 08/21 05/17 Exam# [id number] Ordering Dr: Inderjit Gillespie MD PROCEDURE: BRAIN/HEAD [...] of the left maxillary sinus. Reading Location: [place] [address] CC: Dr. Inderjit Gillespie MD; Dr. 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, [address] Absolute Neut 11.3 X10 3/uL High 2.0-7.7 [facility] Comment on above: Performed By: #### M 200.1000, L509.7001, L101.9900, L501.6710 #### [facility] Laboratory [address] [place], [address] Basophils/100 WBC (Bld) 0.4 % Normal 0-1 [facility] Comment on above: Performed By: #### M 200.1000, L509.7001, L101.9900, L501.6710 #### [facility] Laboratory [address] [place], [address] Eosinophils/100 WBC (Bld) 1.2 % Normal 0-5 [facility] Comment on above: Performed By: #### M 200.1000, L509.7001, L101.9900, L501.6710 #### [facility] Laboratory [address] [place], [address] Erythrocyte distribution width (RBC) [Ratio] 17.2 % High 11.6-14.6 [facility] Comment on above: Performed By: #### M 200.1000, L509.7001, L101.9900, L501.6710 #### [facility] Laboratory [address] [place], [address] Hematocrit (Bld) [Volume fraction] 36.8 % Low 40-54 [facility] Comment on above: Performed By: #### M 200.1000, L509.7001, L101.9900, L501.6710 #### [facility] Laboratory [address] [place], [address] Hemoglobin (Bld) [Mass/Vol] 11.6 g/dL Low 13.0-16.5 [facility] Comment on above: Performed By: #### M 200.1000, L509.7001, L101.9900, L501.6710 #### [facility] Laboratory [address] [place], [address] IG% 0.400 Normal 0.0-0.9 [facility] Comment on above: Result Comment: IG% - Immature Granulocytes (promyelocytes, myelocytes and metamyelocytes) > 1% indicates that a LEFT SHIFT is Present. Performed By: #### M 200.1000, L509.7001, L101.9900, L501.6710 #### [facility] Laboratory [address] [place], [address] Lymphocytes/100 WBC (Bld) 4.8 % Low 19-41 [facility] Comment on above: Performed By: #### M 200.1000, L509.7001, L101.9900, L501.6710 #### [facility] Laboratory [address] [place], [address] MCH (RBC) [Entitic mass] 24.6 pg Low 27.0-32.0 [facility] Comment on above: Performed By: #### M 200.1000, L509.7001, L101.9900, L501.6710 #### [facility] Laboratory [address] [place], [address] MCHC (RBC) [Mass/Vol] 31.5 g/dL Low 32-36 [facility] Comment on above: Performed By: #### M 200.1000, L509.7001, L101.9900, L501.6710 #### [facility] Laboratory [address] [place], [address] MCV (RBC) [Entitic vol] 78.0 fL Low 80-94 [facility] Comment on above: Performed By: #### M 200.1000, L509.7001, L101.9900, L501.6710 #### [facility] Laboratory [address] [place], [address] Monocytes/100 WBC (Bld) 5.7 % Normal 0-10 [facility] Comment on above: Performed By: #### M 200.1000, L509.7001, L101.9900, L501.6710 #### [facility] Laboratory [address] [place], [address] Neutrophils/100 WBC (Bld) 87.5 % High 47-70 [facility] Comment on above: Performed By: #### M 200.1000, L509.7001, L101.9900, L501.6710 #### [facility] Laboratory [address] [place], [address] Nucleated RBC (Bld) [#/Vol] 0 10*3/uL Normal 0-5 [facility] Comment on above: Performed By: #### M 200.1000, L509.7001, L101.9900, L501.6710 #### [facility] Laboratory [address] [place], [address] Platelet mean volume (Bld) [Entitic vol] 9.4 fL Normal 6.2-12.0 [facility] Comment on above: Performed By: #### M 200.1000, L509.7001, L101.9900, L501.6710 #### [facility] Laboratory [address] [place], [address] Platelets (Bld) [#/Vol] 258 10*3/uL Normal 150-450 [facility] Comment on above: Performed By: #### M 200.1000, L509.7001, L101.9900, L501.6710 #### [facility] Laboratory [address] [place], [address] RBC (Bld) [#/Vol] 4.72 10*6/uL Normal 4.6-6.2 [facility] Comment on above: Performed By: #### M 200.1000, L509.7001, L101.9900, L501.6710 #### [facility] Laboratory [address] [place], [address] RDW SD 48.2 fl High 35.1-43.9 [facility] Comment on above: Performed By: #### M 200.1000, L509.7001, L101.9900, L501.6710 #### [facility] Laboratory [address] [place], [address] WBC (Bld) [#/Vol] 12.9 10*3/uL High 4.4-11.0 [facility] Comment on above: Performed By: #### M 200.1000, L509.7001, L101.9900, L501.6710 #### [facility] Laboratory [address] [place], [address] Gene 09-01-2024 SHEMARN Telephone (PH[facility]) ROBY FLORES ([id number]) 1935 M Date Time Provider Department 09/01/24 RUSSELL AGUAYO During your visit today, we recorded the following information about you: Russell Aguayo [facility] 09/01/2024 10:01 AM Signed PCP reached [...] affordable alvarado using Good Rx coupons. At [facility] (his current pharmacy), he can get a 1 mo supply for ~$30. If he switches the prescription to [facility], he can get a 1 mo supply for ~$20. See coupons below. Rivastigmine patches are also available via [employer]. It appears the cheapest option is through [facility], in which he can get 30 patches for $52. Coupon also below. Sending to PCP to review and provide patient with coupon card information. Russell Aguayo, Saúl, [facility] Primary Care Clinical Pharmacist Memantine coupon at [facility] Memantine coupon at [facility] Rivastigmine patches coupon at [facility] Luciana Cisneros MD 09/01/2024 1:27 PM Signed Rahul Chau, Staff please let patient know what the pharmacist as opined on. 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, [address] COVID-19 virus antigen assay Ordered By: Marta Black on 09-01-2024 SARS-CoV-2 (COVID-19) Ag IA.rapid Ql (Resp) [facility] CRPon 09-01-2024 C-REACTIVE PROT 26.80 mg/L High 0.0-3.0 [facility] Comment on above: Performed By: #### M 200.1000, L509.7001, L101.9900, L501.6710 #### [facility] Laboratory [address] [place], [address] Carbon dioxide, total [Moles /volume] in Central venous bloodOrdered By: Inderjit Gillespie on 09-01-2024 CO2 [Moles/Vol] 24.3 mmol/L 21.0-32.0 [facility] Chest 1 View (Portable)on Chest 1 View (Portable) [facility] Imaging Services [address] [place] [address] Chest 1 View (Portable) MR#: [id number] Acct: [id number] Name: ROBY FLORES Rep #: [id number] : 1935 M 89 From: Jose harris MD PCP: Dr. Stas Mora MD Status: REG ER Study: Chest 1 View (Portable) Date of Exam: 09/01/24 Exam# [id number] Ordering Dr: Inderjit Gillespie MD PROCEDURE: CHEST [...] No acute abnormality is seen. Reading Location: [place] [address] CC: Dr. Inderjit Gillespie MD; Dr. 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 He has normal tracer clerk strength. Neurologically he is awake alert. Answering [...] Air 09/01/24 (more content not included)... Normal [facility] Eosinophil percentageOrdered By: Inderjit Gillespie on 09-01-2024 Eosinophils/100 WBC (Bld) 1.2 % 0-5 [facility] Erythrocyte Sed Rateon 09-01 SED RATE 2 mm/hr Normal 0-20 [facility] Comment on above: Performed By: #### M 200.1000, L509.7001, L101.9900, L501.6710 #### [facility] Laboratory [address] [place], [place], [address] Erythrocyte distribution wid th ratioOrdered By: Inderjit Gillespie on 09-01-2024 Erythrocyte distribution width (RBC) [Ratio] 17.2 % High 11.6-14.6 [facility] Erythrocyte distribution wid th standard deviationOrdered By: Inderjit Gillespie on 09-01-2024 Erythrocyte distribution width (RBC) [Ratio] 48.2 fl High 35.1-43.9 [facility] Erythrocyte sedimentation ra teOrdered By: Marta Black on 09-01-2024 ESR (Bld) [Velocity] 2 mm/h 0-20 [facility] Glomerular filtration rate ( GFR) estimation/1.73 sq m using serum, plasma, or whole bOrdered By: Inderjit Gillespie on 09-01-2024 GFR/1.73 sq M.predicted among non-blacks MDRD (S/P/Bld) [Vol rate/Area] 86 mL/min/{1.73_m2} >60 [facility] Comment on above: mL/min/1.73m2 CKD-EP I Creatinine Equation (2020) H AND P Exam - Hospitaliston 09-01-2024 H&P Exam - Hospitalist [facility] System Medical Records Department [address] [place] [address] H P Exam - Hospitalist 09/01/24 1018 MR#: [id number] Acct: [id number] Name: ROBY FLORES Rep #: [id number] : 1935 89 From: Kathy Wells MD PCP: Dr. Stas Mora MD Status:ADM GERMAN Location: [facility] [id number] HPI - General General Date of Admission: [...] in the ED were BP of 180/89, MD of 87, RR of 18 and temp [...] debility and weakness due to mechanical fall. [facility] Medical History Chronic anticoagulation TIA [...] 99 Oxy (more content not included)... Normal [facility] Hematocrit Auto (Bld) [Volum e fraction]Ordered By: Inderjit Gillespie on 09-01-2024 Hematocrit (Bld) [Volume fraction] 36.8 % Low 40-54 [facility] Hemoglobin measurementOrdere d By: Inderjit Gillespie on 09-01-2024 Hemoglobin (Bld) [Mass/Vol] 11.6 g/dL Low 13.0-16.5 [facility] Hips B/L min 2 views w/ Pelv adolfo 09-01-2024 Hips B/L min 2 views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 longterm current use of anticoagulant [Z79.01]09/22/2016 Paroxysmal atrial fibrillation (HCC) [I48.0] 09/22/2016 Hyperlipidemia [E78.5] 08/26/2022 Encounter Status:Closed by CORETTA JALLOH on 04/27/24 [facility] Cobalamin (Vitamin B12) [Mas s/Vol]on 04-27-2024 Interpretation and review of laboratory results Normal [facility] No Panel Informationon 04-27 [facility] PT panel Coag (PPP)on 2024 INR Coag (PPP) [Relative time] 2.6 {INR} High 0.9-1.3 [facility] Comment on above: Order Comment: Specrosalio parmar Type: BLOOD SPECIMENOrdering Facility: [facility] Address: [address] [place] [address] Result Comment: Mary min K Antagonist (VKA) Therapeutic Range: INR 2 to 3 (Target INR of 2.5) Note: For patients treated with VKA drugs, such as warfarin, the [place] [employer] 2012 Guideline recommends [...] Chest 2012, 141:7S-47S Avel RA, et al. [facility] 2017, 70: 252-289 Performed By: #### 3 4528-0 ####[facility] HOSPITALAMINATARachel [id number] [place] [address] [place] PT Coag (PPP) [Time] 25.2 s High <13.1 [facility] Comment on above: Order Comment: Speci men Type: BLOOD SPECIMENOrdering Facility: [facility] Address: [address] [place] [address] Performed By: #### 3 4528-0 ####[facility] HOSPITALNCLIRachel [id number] [place] [address] [place] THYROID STIMULATING HORMONEo n 02-05-2025 TSH Qn 0.177 m[IU]/L Low [facility] TSH Qnon 04-27-2024 Interpretation and review of laboratory results Abnormal [facility] TSH SerPl-aCncon 04-27-2024 TSH Qn 0.177 m[IU]/L Low 0.270-4.20 0 [facility] Comment on above: Order Comment: Speci men Type: BLOOD SPECIMENOrdering Facility: [facility] Address: [address] [place] [address] Performed By: #### 2 132-9, 3016-3 ####[facility] LABCLIA [id number] [place] [id number] [place] VITAMIN B12on 04-27-2024 Cobalamin (Vitamin B12) [Mass/Vol] 389 pg/mL 232 - 1245 pg/mL [facility] Vit B12 SerPl-mCncon 025 Cobalamin (Vitamin B12) [Mass/Vol] 389 pg/mL Normal 232-1245 [facility] Comment on above: Order Comment: Speci men Type: BLOOD SPECIMENOrdering Facility: [facility] Address: [address] [place] [address] Performed By: #### 2 132-9, 3016-3 ####[facility] LABCLIA [id number] [place] [id number] [place] CNPNon 04-25-2024 CNPN Telephone (VISHWS) ROBY FLORES ([id number]) 1935 M Date Time Provider Department 04/25/24 [facility] During your visit today, we recorded [...] disturbance or anxiety ([facility]) [F03.90] Order(s):CONSULT TO GERIATRICS [9012] Order #: [id number]: 1 FUTURE Prescriptions as of 04/25/2024 - [...] [K13.0] 04/24/2011 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]09/22/2016 Paroxysmal atrial fibrillation (HCC) [I48.0] 09/22/2016 Hyperlipidemia [E78.5] 08/26/2022 Encounter Status:Closed by MARIAN CORONA on 04/25/24 [facility] Gene 04-13-2024 CNPN Telephone (PHAMTE) ROBY FLORES ([id number]) 1935 M Date Time Provider Department 04/13/24 CORETTA JALLOH During your visit today, we recorded the following information about you: Coretta Jalloh RPh 04/13/2024 11:15 AM Signed [facility] Ambulatory Pharmacy Anticoagulation Clinic Anticoagulation Episode Summary Anticoagulation Care Providers Provider Role Specialty Phone number Stas Mora MD Referring Family Medicine [phone] Roby Garcia Sandra is a 88 year [...] ALLERGIES No Known Allergies Indication for Warfarin: longterm current use of 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 Coretta Jalloh [facility] Clinical Pharmacist, Pharmacy Anticoagulation Clinic Pharmacy Anticoagulation Clinic Pager: [phone]. Elise Paredes [facility] 04/14/2024 10:45 AM Signed Spoke to patient and Gabby and they will reduce warfarin dosage to 1.5 mg WedSat/ 2.5 mg all other days and go back to the lab in 2 weeks. 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]09/22/2016 Paroxysmal atrial fibrillation (HCC) [I48.0] 09/22/2016 Hyperlipidemia [E78.5] 08/26/2022 Encounter Status:Closed by CORETTA JALLOH on 04/13/24 Normal [facility] PT panel Coag (PPP)on 2024 INR Coag (PPP) [Relative time] 3.2 {INR} High 0.9-1.3 [facility] Comment on above: Order Comment: Stone parmar Type: BLOOD SPECIMENOrdering Facility: [facility] Address: [address] [place] [address] Result Comment: Mary min K Antagonist (VKA) Therapeutic Range: INR 2 to 3 (Target INR of 2.5) Note: For patients treated with VKA drugs, such as warfarin, the [place] [employer] 2012 Guideline recommends [...] Chest 2012, 141:7S-47S Avel RA et al. [facility] 2017, 70: 252-289 Performed By: #### 3 4528-0 ####[facility] KAUSHIK [id number] [address] [place] PT Coag (PPP) [Time] 31.2 s High <13.1 [facility] Comment on above: Order Comment: Stone parmar Type: BLOOD SPECIMENOrdering Facility: [facility] Address: [address] [place] [address] Performed By: #### 3 4528-0 ####[facility] HOSPITALJERMAIN [id number] [address] [place] CNPMarizol 03-30-2024 CNPN Telephone (PHAMTE) ROBY FLORES ([id number]) 1935 M Date Time Provider Department 03/30/24 CORETTA JALLOH PHAMAHENDRA During your visit today, we recorded the following information about you: Coretta Jalloh [facility] 03/30/2024 9:57 AM Signed [facility] Ambulatory Pharmacy Anticoagulation Clinic Anticoagulation Episode Summary Anticoagulation Care Providers Provider Role Specialty Phone number Stas Mora MD Referring Family Medicine [phone] Roby Flores is a 88 year old [...] ALLERGIES No Known Allergies 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 Coretta Jalloh [facility] Clinical Pharmacist, Pharmacy Anticoagulation Clinic Pharmacy Anticoagulation Clinic Pager: [phone]. 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]09/22/2016 Paroxysmal atrial fibrillation (HCC) [I48.0] 09/22/2016 Hyperlipidemia [E78.5] 08/26/2022 Encounter Status:Closed by CORETTA JALLOH on 03/30/24 Normal [facility] PT panel Coag (PPP)on 2024 INR Coag (PPP) [Relative time] 3.5 {INR} High 0.9-1.3 [facility] Comment on above: Order Comment: Speci men Type: BLOOD SPECIMENOrdering Facility: [facility] Address: [address] [place], [place] [address] Result Comment: Mary min K Antagonist (VKA) Therapeutic Range: INR 2 to 3 (Target INR of 2.5) Note: For patients treated with VKA drugs, such as warfarin, the [place] [employer] 2012 Guideline recommends [...] Chest 2012, 141:7S-47S Avel RA, et al. [facility] 2017, 70: 252-289 Performed By: #### 3 4528-0 ####[facility]ITALNC[facility] [id number] [place] [address] [place] PT Coag (PPP) [Time] 33.4 s High <13.1 [facility] Comment on above: Order Comment: Speci men Type: BLOOD SPECIMENOrdering Facility: [facility] Address: [address] [place] [address] Performed By: #### 3 4528-0 ####[facility] [id number] [address] [place] CNPMarizol 03-17-2024 CNPN Telephone (PHARAV) ROBY FLORES ([id number]) 1935 M Date Time Provider Department 03/17/24 JOSY GANDHI PHAV During your visit today, we recorded the following information about you: Josy Gandhi RPh 03/17/2024 9:38 AM Signed [facility] Ambulatory Pharmacy Anticoagulation Clinic Anticoagulation Episode Summary Anticoagulation Care Providers Provider Role Specialty Phone number Stas Mora MD Referring Family Medicine [phone] Roby Radha Flores is a 88 year [...] ALLERGIES No Known Allergies Indication for Warfarin: longterm current use of 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 Josy Gandhi [facility] Clinical Pharmacist, Pharmacy Anticoagulation Clinic Pharmacy Anticoagulation Clinic Pager: [phone]. 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]09/22/2016 Paroxysmal atrial fibrillation (HCC) [I48.0] 09/22/2016 Hyperlipidemia [E78.5] 08/26/2022 Encounter Status:Closed by JOSY GANDHI on 03/17/24 Normal [facility] PT panel Coag (PPP)on 2023 INR Coag (PPP) [Relative time] 3.8 {INR} High 0.9-1.3 [facility] Comment on above: Order Comment: Stone parmar Type: BLOOD SPECIMENOrdering Facility: [facility] Address: [address] [place] [address] Result Comment: Mary min K Antagonist (VKA) Therapeutic Range: INR 2 to 3 (Target INR of 2.5) Note: For patients treated with VKA drugs, such as warfarin, the [place] [employer] 2012 Guideline recommends [...] Chest 2012, 141:7S-47S Avel RA, et al. [facility] 2017, 70: 252-289 Performed By: #### 3 4528-0 ####[facility] HOSPITALJERMAIN [id number] [place] [address] [place] PT Coag (PPP) [Time] 36.4 s High <13.1 [facility] Comment on above: Order Comment: Stone parmar Type: BLOOD SPECIMENOrdering Facility: [facility] Address: [address] [place] [address] Performed By: #### 3 4528-0 ####[facility] HOSPITALJREMAIN [id number] [place] [address] [facility] Gene 03-03-2024 CNPN Telephone (PHAMTE) ROBY FLORES ([id number]) 1935 M Date Time Provider Department 03/03/24 ELISE PAREDES PHAMTE During your visit today, we recorded the following information about you: Elise Paredes, [facility] 03/03/2024 9:40 AM Signed [facility] Ambulatory Pharmacy Anticoagulation Clinic Anticoagulation Episode Summary Anticoagulation Care Providers Provider Role Specialty Phone number Stas Mora MD Referring Family Medicine [phone] Roby Flores is a 88 year old [...] ALLERGIES No Known Allergies Indication for Warfarin: longterm current use of 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 Elise Paredes [facility] Clinical Pharmacist, Pharmacy Anticoagulation Clinic Pharmacy Anticoagulation Clinic Pager: [phone]. 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 Normal [facility] PT panel Coag (PPP)on 2023 INR Coag (PPP) [Relative time] 3.6 {INR} High 0.9-1.3 [facility] Comment on above: Order Comment: Speci men Type: BLOOD SPECIMENOrdering Facility: [facility] Address: [address] [place] [address] Result Comment: Mary min K Antagonist (VKA) Therapeutic Range: INR 2 to 3 (Target INR of 2.5) Note: For patients treated with VKA drugs, such as warfarin, the [place] [employer] 2012 Guideline recommends [...] Chest 2012, 141:7S-47S Avel RA, et al. [facility] 2017, 70: 252-289 Performed By: #### 3 4528-0 ####[facility] [id number] [place] [address] [place] PT Coag (PPP) [Time] 35.1 s High <13.1 [facility] Comment on above: Order Comment: Speci men Type: BLOOD SPECIMENOrdering Facility: [facility] Address: [address] [place] [address] Performed By: #### 3 4528-0 ####[facility] [id number] [place] [address] [place] Gene 02-10-2024 MICHELINE Telephone (SHAY) ROBY FLORES ([id number]) 1935 M Date Time Provider Department 02/10/24 CORETTA JALLOH During your visit today, we recorded the following information about you: Coretta Jalloh [facility] 02/10/2024 9:12 AM Signed [facility] Ambulatory Pharmacy Anticoagulation Clinic Anticoagulation Episode Summary Anticoagulation Care Providers Provider Role Specialty Phone number Stas Mora MD Referring Family Medicine [phone] Roby Flores is a 88 year old [...] ALLERGIES No Known Allergies Indication for Warfarin: longterm current use of 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 Coretta Jalloh [facility] Clinical Pharmacist, Pharmacy Anticoagulation Clinic Pharmacy Anticoagulation Clinic Pager: [phone]. GaelCoretta jamison [facility] 02/24/2024 3:53 PM Signed Patient was due to test INR today at the lab - will continue to monitor for results. 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]09/22/2016 Paroxysmal atrial fibrillation (HCC) [I48.0] 09/22/2016 Hyperlipidemia [E78.5] 08/26/2022 Encounter Status:Closed by CORETTA JALLOH on 02/10/24 Normal [facility] PT panel Coag (PPP)on 2023 INR Coag (PPP) [Relative time] 3.3 {INR} High 0.9-1.3 [facility] Comment on above: Order Comment: Speci men Type: BLOOD SPECIMENOrdering Facility: [facility] Address: [address] [place] [address] Result Comment: Mary min K Antagonist (VKA) Therapeutic Range: INR 2 to 3 (Target INR of 2.5) Note: For patients treated with VKA drugs, such as warfarin, the [place] [employer] 2012 Guideline recommends [...] Chest 2012, 141:7S-47S Avel RA, et al. [facility] 2017, 70: 252-289 Performed By: #### 3 4528-0 ####[facility] [id number] [place] [address] [place] PT Coag (PPP) [Time] 31.4 s High <13.1 [facility] Comment on above: Order Comment: Speci men Type: BLOOD SPECIMENOrdering Facility: [facility] Address: [address] [place] [address] Performed By: #### 3 4528-0 ####[facility] [id number] [address] [facility] CNPMarizol 01-20-2024 CNPN Telephone (PHAMTE) ROBY FLORES ([id number]) 1935 M Date Time Provider Department 01/20/24 CORETTA JALLOH During your visit today, we recorded the following information about you: Coretta Jalloh RPh 01/20/2024 10:25 AM Signed [facility] Ambulatory Pharmacy Anticoagulation Clinic Anticoagulation Episode Summary Anticoagulation Care Providers Provider Role Specialty Phone number Stas Mora MD Referring Family Medicine [phone] Roby Garcia Sandra is a 88 year [...] ALLERGIES No Known Allergies Indication for Warfarin: longterm current use of 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 Coretta Jalloh [facility] Clinical Pharmacist, Pharmacy Anticoagulation Clinic Pharmacy Anticoagulation Clinic Pager: [phone]. 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]09/22/2016 Paroxysmal atrial fibrillation (HCC) [I48.0] 09/22/2016 Hyperlipidemia [E78.5] 08/26/2022 Encounter Status:Closed by CORETTA JALLOH on 01/20/24 Normal [facility] PT panel Coag (PPP)on 2023 INR Coag (PPP) [Relative time] 3.4 {INR} High 0.9-1.3 [facility] Comment on above: Order Comment: Speci men Type: BLOOD SPECIMENOrdering Facility: [facility] Address: [facility] [place] [address] Result Comment: Mary min K Antagonist (VKA) Therapeutic Range: INR 2 to 3 (Target INR of 2.5) Note: For patients treated with VKA drugs, such as warfarin, the [place] [employer] 2012 Guideline recommends [...] Chest 2012, 141:7S-47S Avel RA, et al. [facility] 2017, 70: 252-289 Performed By: #### 3 4528-0 ####[facility] [id number] [place] [address] [place] PT Coag (PPP) [Time] 31.8 s High <13.1 [facility] Comment on above: Order Comment: Speci men Type: BLOOD SPECIMENOrdering Facility: [facility] Address: [address] [place] [address] Performed By: #### 3 4528-0 ####[facility] [id number] [address] [place] Gene 01-04-2024 [facility] ROBY FLORES ([id number]) 1935 M Date Time Provider Department 01/04/[address] [facility] During your visit today, we recorded the following information about you: Oliva Westbrook LPN 01/04/2024 9:37 AM Signed Patient significant other Maria Guadalupe calling asking for a warfarin 3 mg rx to be sent to [facility]. He is taking 3 mg daily and has 1 mg tablets and 2.5 mg tablets. He keeps running out of the 1 mg every 10 days and pharmacy asking for another rx. Pending rx needs completed. Please advise Jenna Fitzpatrick APRN.ATTORNEY LAWYER 01/04/2024 10:42 AM Signed The following approved medication requests have been transmitted electronically. Requested Prescriptions Signed Prescriptions Disp Refills warfarin (COUMADIN) 3 mg tablet 30 tablet 11 Sig: Take 1 tablet by mouth daily as directed. 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 Encounter Status:Closed by JENNA FITZPATRICK on 01/04/24 [facility] Gene 12-24-2023 SHEMARN Telephone (TIAE) FLORES,ROBY Garcia ([id number]) 1935 M Date Time Provider Department 12/24/23 ELISE PAREDES During your visit today, we recorded the following information about you: Elise Paredes, [facility] 12/24/2023 2:32 PM Signed [facility] Ambulatory Pharmacy Anticoagulation Clinic Anticoagulation Episode Summary Anticoagulation Care Providers Provider Role Specialty Phone number Stas Mora MD Referring Family Medicine [phone] Roby Radha Flores is a 88 year [...] ALLERGIES No Known Allergies 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 longterm current use of anticoagulant [Z79.01]09/22/2016 Paroxysmal atrial fibrillation (HCC) [I48.0] 09/22/2016 Hyperlipidemia [E78.5] 08/26/2022 Encounter Status:Closed by ELISE PAREDES on 12/24/23 Normal [facility] PT panel Coag (PPP)on 2023 INR Coag (PPP) [Relative time] 2.2 {INR} High 0.9-1.3 [facility] Comment on above: Order Comment: Speci men Type: BLOOD SPECIMENOrdering Facility: [facility] Address: [address] [place] [address] Result Comment: Mary min K Antagonist (VKA) Therapeutic Range: INR 2 to 3 (Target INR of 2.5) Note: For patients treated with VKA drugs, such as warfarin, the [place] [employer] 2012 Guideline recommends [...] Chest 2012, 141:7S-47S Avel CARDONA et al. [facility] 2017, 70: 252-289 Performed By: #### 3 4528-0 ####[facility] [id number] [place] [address] [place] PT Coag (PPP) [Time] 22.1 s High 9.7-13.0 [facility] Comment on above: Order Comment: Speci men Type: BLOOD SPECIMENOrdering Facility: [facility] Address: [address] [place] [address] Performed By: #### 3 4528-0 ####[facility] [id number] [address] [place] CNPNon 12-10-2023 CNPN Telephone (PHAMTE) ROBY FLORES ([id number]) 1935 M Date Time Provider Department 12/10/23 ELISE PAREDES PHAMAHENDRA During your visit today, we recorded the following information about you: Elise Paredes, [facility] 12/10/2023 2:21 PM Signed [facility] Ambulatory Pharmacy Anticoagulation Clinic Anticoagulation Episode Summary Anticoagulation Care Providers Provider Role Specialty Phone number Stas Mora MD Referring Family Medicine [phone] Roby Garcia Sandra is a 88 year [...] ALLERGIES No Known Allergies Indication for Warfarin: longterm current use of anticoagulant Paroxysmal atrial fibrillation (hcc) Anticoagulation Episode Summary Current INR goal: 2.0-3.0 Assessment: INR result of 1.9 is SUBtherapeutic due to: unknown cause - did not speak to patient Plan: Current Warfarin Dosing As of 12/10/2023 Full warfarin instructions: 2.5 mg every Sun; 3 mg all other days Left voice message for Gabby at [phone] (home) Advised patient to increase total weekly regimen Next lab INR check scheduled on 12/24/2023 Elise Paredes [facility] Clinical Pharmacist, Pharmacy Anticoagulation Clinic Pharmacy Anticoagulation Clinic Pager: [phone]. 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]09/22/2016 Paroxysmal atrial fibrillation (HCC) [I48.0] 09/22/2016 Hyperlipidemia [E78.5] 08/26/2022 Encounter Status:Closed by ELISE PAREDES on 12/10/23 Normal [facility] PT panel Coag (PPP)on 2023 INR Coag (PPP) [Relative time] 1.9 {INR} High 0.9-1.3 [facility] Comment on above: Order Comment: Speci men Type: BLOOD SPECIMENOrdering Facility: [facility] Address: [address] [place] [address] Result Comment: Mary min K Antagonist (VKA) Therapeutic Range: INR 2 to 3 (Target INR of 2.5) Note: For patients treated with VKA drugs, such as warfarin, the [place] [employer] 2012 Guideline recommends [...] Chest 2012, 141:7S-47S Avel RA, et al. [facility] 2017, 70: 252-289 Performed By: #### 3 4528-0 ####[facility] [id number] [place] [address] [place] PT Coag (PPP) [Time] 18.8 s High 9.7-13.0 [facility] Comment on above: Order Comment: Speci men Type: BLOOD SPECIMENOrdering Facility: [facility] Address: [address] [place] [address] Performed By: #### 3 4528-0 ####[facility] [id number] [place] [address] [place] CBC W Auto Differential pane l (Bld)on 06-04-2023 Basophils (Bld) [#/Vol] 0.06 10*3/uL <0.11 k/uL [facility] Basophils/100 WBC (Bld) 0.9 % [facility] Differential cell count method Nom (Bld) Auto [facility] Eosinophils (Bld) [#/Vol] 0.16 10*3/uL <0.46 k/uL [facility] Eosinophils/100 WBC (Bld) 2.4 % [facility] Erythrocyte distribution width (RBC) [Ratio] 15.7 % High 11.5 - 15.0 % [facility] Hematocrit (Bld) [Volume fraction] 34.9 % Low 39.0 - 51.0 % [facility] Hemoglobin (Bld) [Mass/Vol] 10.0 g/dL Low 13.0 - 17.0 g/dL [facility] Immature granulocytes (Bld) [#/Vol] <0.10 k/uL [facility] Immature granulocytes/100 WBC (Bld) 0.3 % [facility] Lymphocytes (Bld) [#/Vol] 1.65 10*3/uL 1.00 - 4.00 k/uL [facility] Lymphocytes/100 WBC (Bld) 24.8 % [facility] MCH (RBC) [Entitic mass] 20.9 pg Low 26.0 - 34.0 pg [facility] MCHC (RBC) [Mass/Vol] 28.7 g/dL Low 30.5 - 36.0 g/dL [facility] MCV (RBC) [Entitic vol] 73.0 fL Low 80.0 - 100.0 fL [facility] Monocytes (Bld) [#/Vol] 0.61 10*3/uL <0.87 k/uL [facility] Monocytes/100 WBC (Bld) 9.2 % [facility] Neutrophils (Bld) [#/Vol] 4.16 10*3/uL 1.45 - 7.50 k/uL [facility] Neutrophils/100 WBC (Bld) 62.4 % [facility] Nucleated RBC (Bld) [#/Vol] <0.01 k/uL [facility] Nucleated RBC/100 WBC (Bld) [Ratio] 0.0 /100 WBC [facility] Platelet mean volume (Bld) [Entitic vol] 10.7 fL 9.0 - 12.7 fL [facility] Platelets (Bld) [#/Vol] 297 10*3/uL 150 - 400 k/uL [facility] RBC (Bld) [#/Vol] 4.78 10*6/uL 4.20 - 6.00 m/uL [facility] WBC (Bld) [#/Vol] 6.66 10*3/uL 3.70 - 11.00 k/uL [facility] MRI BRAIN WO IVCONon 023 [facility] Absolute lymphocyte countOrd ered By: Brian Cunningham on 02-10-2023 Lymphocytes Auto (Unsp spec) [#/Vol] 0.99 10*3/uL 0.83-4.51 [facility] Basophil percentageOrdered B y: Brian Cunningham on 02-10-2023 Basophil percentage 0-5 SEEN /hpf 0-5 [facility] Basophils/100 WBC (Bld) 0.8 % 0-1 [facility] Chloride [Moles/Vol] 108 mmol/L 98-107 [facility] Eosinophils/100 WBC (Bld) 0.4 % 0-5 [facility] Glucose [Mass/Vol] 117 mg/dL 74-106 [facility] Comment on above: Fasting Glucose resu lt from 100 to 125 mg/dL suggests IMPAIRED HOMEOSTASIS per A.D.A. criteria. Neutrophils (Bld) [#/Vol] 5.8 10*3/uL 2.0-7.7 [facility] Neutrophils/100 WBC (Bld) 77.9 % 47-70 [facility] Potassium [Moles/Vol] 4.0 mmol/L 3.5-5.1 [facility] Sodium [Moles/Vol] 140 mmol/L 136-145 [facility] WBC (Bld) [#/Vol] 7.5 10*3/uL 4.4-11.0 [facility] Bilirubin Test strip Ql (U)O rdered By: Brian Cunningham on 02-10-2023 Bilirubin Ql (U) 1 mg/dL Negative [facility] Comment on above: COLOR OF URINE MAY A FFECT DIPSTICK RESULTS. Blood erythrocytes count (nu mber/volume)Ordered By: Brian Cunningham on 02-10-2023 RBC (Bld) [#/Vol] 4.42 10*6/uL 4.6-6.2 [facility] Blood hemoglobin measurement (mass/volume)Ordered By: Brian Cunningham on 02-10-2023 Hemoglobin (Bld) [Mass/Vol] 10.6 g/dL 13.0-16.5 [facility] Blood lymphocytes/100 leukoc ytesOrdered By: Brian Cunningham on 02-10-2023 Lymphocytes/100 WBC (Bld) 13.3 % 19-41 [facility] Blood monocytes/100 leukocyt esOrdered By: Brian Cunningham on 02-10-2023 Monocytes/100 WBC (Bld) 7.2 % 0-10 [facility] Blood platelet mean volumeOr dered By: Brian Cunningham on 02-10-2023 Platelet mean volume (Bld) [Entitic vol] 9.9 fL 6.2-12.0 [facility] Determination of erythrocyte mean corpuscular volume (MCV)Ordered By: Brian Cunningham on 02-10-2023 MCV (RBC) [Entitic vol] 81.9 fL 80-94 [facility] Hematocrit Auto (Bld) [Volum e fraction]Ordered By: Brian Cunningham on 02-10-2023 Hematocrit (Bld) [Volume fraction] 36.2 % 40-54 [facility] INR in Blood by Coagulation assayOrdered By: Brian Cunningham on 02-10-2023 INR Coag (Bld) [Relative time] 1.2 {INR} [facility] Influenza virus A and B and SARS-CoV-2 (COVID-19) Ag panel - Upper respiratory specimOrdered By: Brian Cunningham on 02-10-2023 SARS-CoV-2 (COVID-19) RNA LOLI+probe Ql (Resp) [facility] Ketones Test strip Ql (U)Ord ered By: Brian Cunningham on 02-10-2023 Ketones Ql (U) 5 mg/dl Negative [facility] Laboratory - Chemistry and C hemistry - challengeOrdered By: Brian Cunningham on 02-10-2023 CO2 [Moles/Vol] 30.0 mmol/L 21.0-32.0 [facility] Urea nitrogen/Creatinine [Mass ratio] 23.8 mg/mg 10-20 [facility] Laboratory - CoagulationOrde red By: Brian Cunningham on 02-10-2023 aPTT Coag (Bld) [Time] 26.3 s 24.1-36.2 [facility] PT Coag (PPP) [Time] 15.6 s 11.7-14.9 [facility] Laboratory - Hematology and Cell countsOrdered By: Brian Cunningham on 02-10-2023 Erythrocyte distribution width (RBC) [Entitic vol] 41.8 fL 35.1-43.9 [facility] Erythrocyte distribution width (RBC) [Ratio] 14.1 % 11.6-14.6 [facility] Immature granulocytes/100 WBC (Bld) 0.400 % 0.0-0.9 [facility] Comment on above: IG% - Immature Granu locytes (promyelocytes, myelocytes and metamyelocytes) > 1% indicates that a LEFT SHIFT is Present. MCH (RBC) [Entitic mass] 24.0 pg 27.0-32.0 [facility] Nucleated RBC/100 WBC (Bld) [Ratio] 0 % 0-5 [facility] MCHC Auto (RBC) [Mass/Vol]Or dered By: Brian Cunningham on 02-10-2023 MCHC (RBC) [Mass/Vol] 29.3 g/dL 32-36 [facility] Mucus LM Ql (Urine sed)Order ed By: Brian Cunningham on 02-10-2023 Mucus Ql (Urine sed) 0 SEEN /hpf [facility] Nitrite Test strip Ql (U)Ord ered By: Brian Cunningham on 02-10-2023 Nitrite Ql (U) Negative Negative [facility] No Panel InformationOrdered By: Brian Cunningham on 02-10-2023 Estimated Creatinine Clearance Calc 68.37 ml/min [facility] Estimated GFR (MDRD) Amer 118 mL/min >60 [facility] Comment on above: GFR Calc Estimated GFR (MDRD) Non-Af Amer 97 mL/min >60 [facility] Comment on above: Non- GFR Calc Troponin I High Sensitivity 16 pg/mL 3.0-78.0 [facility] Comment on above: Please Note: New Hiwot t Units and Gender Specific Reference Ranges. For more information see Policy Stat Procedure [place] High Sensitivity Troponin (TNIH) and attachments. Platelets bldOrdered By: Caitlyn Cunningham on 02-10-2023 Platelets (Bld) [#/Vol] 328 10*3/uL 150-450 [facility] Protein Test strip Ql (U)Ord ered By: Brian Cunningham on 02-10-2023 Protein Ql (U) 15 mg/dl Negative [facility] Serum or plasma calcium alvaro urement (mass/volume)Ordered By: Brian Cunningham on 02-10-2023 Calcium [Mass/Vol] 8.9 mg/dL 8.5-10.1 [facility] Serum or plasma creatinine m easurement (mass/volume)Ordered By: Brian Cunningham on 02-10-2023 Creatinine [Mass/Vol] 0.80 mg/dL 0.70-1.30 [facility] Comment on above: The validity of the calculated GFR & GFRAA in patients over 70 years has not been determined. Clinical correlation is essential. Serum or plasma urea nitroge n measurement (mass/volume)Ordered By: Brian Cunningham on 02-10-2023 Urea nitrogen [Mass/Vol] 19 mg/dL 7-18 [facility] Squamous epithelial cells de tection in urine sediment by light microscopyOrdered By: Brian Cunningham on 02-10-2023 Epithelial cells.squamous LM Ql (Urine sed) 0 SEEN /hpf 0-5 [facility] Thin prep Papanicolaou smear with manual screeningOrdered By: Brian Cunningham on 02-10-2023 Thin prep Papanicolaou smear with manual screening 2 5-15 [facility] Urine blood detectionOrdered By: Brian Cunningham on 02-10-2023 RBC Ql (U) Negative Negative [facility] RBC Ql (U) 0 SEEN /hpf 0-5 [facility] Urine clarityOrdered By: Caitlyn Cunningham on 02-10-2023 Clarity (U) Clear Clear [facility] Urine color determinationOrd ered By: Brian Cunningham on 02-10-2023 Color (U) Yellow Yellow [facility] Urine glucose detectionOrder ed By: Brian Cunningham on 02-10-2023 Glucose Ql (U) Normal mg/dl Normal [facility] Urine leukocyte esterase det ection by dipstickOrdered By: Brian Cunningham on 02-10-2023 Leukocyte esterase Test strip Ql (U) 25 /ul Negative [facility] Urine pHOrdered By: Brian swain on 02-10-2023 pH (U) 6.5 [pH] 5.0 - 8.0 [facility] Urine sediment bacteria coun t by microscopy (number/high power field)Ordered By: Brian Cunningham on 02-10-2023 Bacteria LM.HPF (Urine sed) [#/Area] 0 /[HPF] None Seen [facility] Urine specific gravity measu rementOrdered By: Brian Cunningham on 11-21-2023 Specific gravity (U) [Rel density] 1.015 1.002-1.03 0 [facility] Urobilinogen Auto test strip Ql (U)Ordered By: Brian Cunningham on 02-10-2023 Urobilinogen Ql (U) 4 mg[facility]dl [facility] W/O CONTRAS [...] 11/17/2022 4:26:20 PM Ordering Provider: STERLING LYNCH [facility] [place] XR Pelvis and Hip - left AP and Lateral frogon 05-21-2022 IMPRESSION: No acute fracture or hip dislocation Resistance Welding Machine Operator: [email or web address] Transcribe Date/Time: May 21 2022 3:41P Dictated by : JUDY MCKENZIE MD This examination was interpreted and the report reviewed and electronically signed by: JUDY MCKENZIE MD on May 21 2022 3:43PM [facility] [place] DIVISION OF RADIOLOGY * * *Final Report* [...] Small acetabular osteophytes. DIVISION OF RADIOLOGY Provider, [facility] - 05/21/2022 * * *Final [...] IMPRESSION: No acute fracture or hip dislocation Resistance Welding Machine Operator: [email or web address] Transcribe Date/Time: May 21 2022 3:41P Dictated by : JUDY MCKENZIE MD This examination was interpreted and the report reviewed and electronically signed by: JUDY MCKENZIE MD on May 21 2022 3:43PM EST [facility] Radiology Study observation (narrative) [facility] XR Pelvis and Hip - left AP and Lateral frogOrdered By: Ccf Provider on 05-21-2022 [facility] PT panel Coag (PPP)on 2022 INR Coag (Bld) [Relative time] 1.7 {INR} [facility] Basophil percentageon 2021 Cholesterol [Mass/Vol] 152 mg/dL <200 [facility] Work Phone: Comment on above: <200 mg/dL Desirable 200-240 mg/dL Borderline >240 mg/dL High Risk Triglyceride [Mass/Vol] 76 mg/dL <199 [facility] Work Phone: Comment on above: The drugs N-Acetylcy steine and Metamizole may falsely depress this assay.Serum Triglycerides Reference Interval Normal <150 mg/dL Borderline high 150 - 199 mg/dL High 200 - 499 mg/dL Very High > or = 500 mg/dL INR in Blood by Coagulation assayon 12-22-2021 INR Coag (Bld) [Relative time] 2.5 {INR} [facility] Work Phone: Laboratory - Chemistry and C hemistry - challengeon 12-22-2021 Magnesium [Mass/Vol] 2.1 mg/dL 1.6-2.6 [facility] Work Phone: Laboratory - Coagulationon 1 PT Coag (PPP) [Time] 27.0 s 11.7-14.9 [facility] Work Phone: No Panel Informationon 12-22 Thyroid Stimulating Hormone (TSH) 0.42 uIU/mL 0.358-3.74 [facility] Work Phone: Serum or plasma cholesterol in HDL measurement (mass/volume)on 12-22-2021 Cholesterol in HDL [Mass/Vol] 35 mg/dL >40 [facility] Work Phone: Comment on above: The drugs N-Acetylcy steine and Metamizole may falsely depress this assay. Reference Range HDL <40 mg/dL Low HDL Cholesterol HDL >or= 60 mg/dL High HDL Cholesterol Serum or plasma cholesterol in VLDL measurement (mass/volume)on 12-22-2021 Cholesterol in VLDL [Mass/Vol] 15 mg/dL 5-40 [facility] Work Phone: Serum or plasma low density lipoprotein (LDL) cholesterol measurement (mass/volume)on 12-22-2021 Cholesterol in LDL [Mass/Vol] 102 mg/dL 0-130 [facility] Work Phone: Whole blood hemoglobin A1c/t otal hemoglobin ratio (mass fraction)on 12-22-2021 HbA1c (Bld) [Mass fraction] 5.9 % 3.8-5.6 [facility] Work Phone: Comment on above: Normal < 5.7 % Predi abetic 5.7 - 6.4 % Diabetic >or= 6.5 % Please note range changes. Absolute lymphocyte counton 12-21-2021 Lymphocytes Auto (Unsp spec) [#/Vol] 1.23 10*3/uL 0.83-4.51 [facility] Work Phone: Basophil percentageon 2021 Basophils/100 WBC (Bld) 0.4 % 0-1 [facility] Work Phone: Chloride [Moles/Vol] 106 mmol/L 98-107 [facility] Work Phone: Eosinophils/100 WBC (Bld) 1.4 % 0-5 [facility] Work Phone: [phone] Glucose [Mass/Vol] 107 mg/dL 74-106 [facility] Work Phone: Comment on above: Fasting Glucose resu lt from 100 to 125 mg/dL suggests IMPAIRED HOMEOSTASIS per A.D.A. criteria. Neutrophils (Bld) [#/Vol] 5.7 10*3/uL 2.0-7.7 [facility] Work Phone: Neutrophils/100 WBC (Bld) 72.4 % 47-70 [facility] Work Phone: Potassium [Moles/Vol] 3.7 mmol/L 3.5-5.1 [facility] Work Phone: Sodium [Moles/Vol] 141 mmol/L 136-145 [facility] Work Phone: WBC (Bld) [#/Vol] 7.9 10*3/uL 4.4-11.0 [facility] Work Phone: Blood erythrocytes count (nu mber/volume)on 12-21-2021 RBC (Bld) [#/Vol] 4.85 10*6/uL 4.6-6.2 [facility] Work Phone: Blood hemoglobin measurement (mass/volume)on 12-21-2021 Hemoglobin (Bld) [Mass/Vol] 14.5 g/dL 13.0-16.5 [facility] Work Phone: Blood lymphocytes/100 leukoc yteson 12-21-2021 Lymphocytes/100 WBC (Bld) 15.5 % 19-41 [facility] Work Phone: Blood monocytes/100 leukocyt eson 12-21-2021 Monocytes/100 WBC (Bld) 9.9 % 0-10 [facility] Work Phone: Blood platelet mean volumeon 12-21-2021 Platelet mean volume (Bld) [Entitic vol] 10.2 fL 6.2-12.0 [facility] Work Phone: Determination of erythrocyte mean corpuscular volume (MCV)on 12-21-2021 MCV (RBC) [Entitic vol] 92.0 fL 80-94 [facility] Work Phone: Hematocrit Auto (Bld) [Volum e fraction]on 12-21-2021 Hematocrit (Bld) [Volume fraction] 44.6 % 40-54 [facility] Work Phone: INR in Blood by Coagulation assayon 12-21-2021 INR Coag (Bld) [Relative time] 2.3 {INR} [facility] Work Phone: Laboratory - Chemistry and C hemistry - challengeon 12-21-2021 CO2 [Moles/Vol] 29.0 mmol/L 21.0-32.0 [facility] Work Phone: Urea nitrogen/Creatinine [Mass ratio] 21.8 mg/mg 10-20 [facility] Work Phone: Laboratory - Coagulationon aPTT Coag (Bld) [Time] 36.6 s 24.1-36.2 [facility] Work Phone: PT Coag (PPP) [Time] 24.7 s 11.7-14.9 [facility] Work Phone: Laboratory - Hematology and Cell countson 12-21-2021 Erythrocyte distribution width (RBC) [Entitic vol] 42.2 fL 35.1-43.9 [facility] Work Phone: Erythrocyte distribution width (RBC) [Ratio] 12.5 % 11.6-14.6 [facility] Work Phone: Immature granulocytes/100 WBC (Bld) 0.400 % 0.0-0.9 [facility] Work Phone: Comment on above: IG% - Immature Granu locytes (promyelocytes, myelocytes and metamyelocytes) > 1% indicates that a LEFT SHIFT is Present. MCH (RBC) [Entitic mass] 29.9 pg 27.0-32.0 [facility] Work Phone: Nucleated RBC/100 WBC (Bld) [Ratio] 0 % 0-5 [facility] Work Phone: MCHC Auto (RBC) [Mass/Vol]on 12-21-2021 MCHC (RBC) [Mass/Vol] 32.5 g/dL 32-36 [facility] Work Phone: No Panel Informationon 12-21 Estimated Creatinine Clearance Calc 66.90 ml/min [facility] Work Phone: Estimated GFR (MDRD) Amer 107 mL/min >60 [facility] Work Phone: Comment on above: GFR Calc Estimated GFR (MDRD) Non-Af Amer 88 mL/min >60 [facility] Work Phone: Comment on above: Non- GFR Calc Troponin I High Sensitivity 13 pg/mL 3.0-78.0 [facility] Work Phone: Comment on above: Please Note: New Hiwot t Units and Gender Specific Reference Ranges. For more information see Policy Stat Procedure [place] High Sensitivity Troponin (TNIH) and attachments. Platelets bldon 12-21-2021 Platelets (Bld) [#/Vol] 241 10*3/uL 150-450 [facility] Work Phone: Serum or plasma calcium alvaro urement (mass/volume)on 12-21-2021 Calcium [Mass/Vol] 9.2 mg/dL 8.5-10.1 [facility] Work Phone: Serum or plasma creatinine m easurement (mass/volume)on 12-21-2021 Creatinine [Mass/Vol] 0.87 mg/dL 0.70-1.30 [facility] Work Phone: Comment on above: The validity of the calculated GFR & GFRAA in patients over 70 years has not been determined. Clinical correlation is essential. Serum or plasma urea nitroge n measurement (mass/volume)on 12-21-2021 Urea nitrogen [Mass/Vol] 19 mg/dL 10-07 [facility] Work Phone: Thin prep Papanicolaou smear with manual screeningon 12-21-2021 Thin prep Papanicolaou smear with manual screening 08-04 [facility] Work Phone: CBC panel Auto (Bld)on 07-08 Erythrocyte distribution width (RBC) [Ratio] 13.1 % 11.5 - 15.0 % [facility] Hematocrit (Bld) [Volume fraction] 49.5 % 39.0 - 51.0 % [facility] Hemoglobin (Bld) [Mass/Vol] 15.9 g/dL 13.0 - 17.0 g/dL [facility] MCH (RBC) [Entitic mass] 29.6 pg 26.0 - 34.0 pg [facility] MCHC (RBC) [Mass/Vol] 32.1 g/dL 30.5 - 36.0 g/dL [facility] MCV (RBC) [Entitic vol] 92.2 fL 80.0 - 100.0 fL [facility] Nucleated RBC (Bld) [#/Vol] 10*3/uL <0.01 k/uL [facility] Platelet mean volume (Bld) [Entitic vol] 10.7 fL 9.0 - 12.7 fL [facility] Platelets (Bld) [#/Vol] 235 10*3/uL 150 - 400 k/uL [facility] RBC (Bld) [#/Vol] 5.37 10*6/uL 4.20 - 6.00 m/uL [facility] WBC (Bld) [#/Vol] 10.33 10*3/uL 3.70 - 11.00 k/uL [facility] XR Lumbar spine 3 Viewson IMPRESSION: 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 Resistance Welding Machine Operator: EDUAR Transcribe Date/Time: Mar 13 2020 8:34A Dictated by : GABRIELLE BENTLEY MD This examination was interpreted and the report reviewed and electronically signed by: GABRIELLE BENTLEY MD on Mar 13 2020 8:35AM [facility] [place] DIVISION OF RADIOLOGY * * *Final Report* [...] spine are presented. FINDINGS: There are five vhx-kfp-drmnbuh lumbar vertebrae. No fracture or subluxations are noted. L5-S1 disc space narrowing is demonstrated. There is significant osteophyte formation. Kissing spine seen on lateral view. DIVISION OF RADIOLOGY Provider, [facility]ari [facility] - 03/13/2020 * * *Final Report* [...] spine are presented. FINDINGS: There are five vjl-sfj-jbsnukn lumbar vertebrae. No fracture or subluxations are noted. L5-S1 disc space narrowing is demonstrated. There is significant osteophyte formation. Kissing spine seen on lateral view. 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 Resistance Welding Machine Operator: EDUAR Transcribe Date/Time: Mar 13 2020 8:34A Dictated by : GABRIELLE BENTLEY MD This examination was interpreted and the report reviewed and electronically signed by: GABRIELLE BENTLEY MD on Mar 13 2020 8:35AM EST [facility] XR Lumbar spine 3 ViewsOrder ed By: [facility] Provider on 03-13-2020 [facility] XR Lumbar spine 3 Viewson Radiology Study observation (narrative) [facility] PROGRESSon 06-09-2017 PROGRESS HNO ID: [id number] Author: Vesta Marin PSR Service: (none) Author Type: (none) Type: Progress Notes Filed: 06/09/2017 4:13 PM Note Text: Spoke with the patient and scheduled his Corotid Doppler on June 24, 2017 at 9:00 am [facility] CNOVon 06-02-2017 CNOV Office Visit (AGCARDWST) -------ROBY FLORES ([id number]) 1935 MDate Time Provider Department06/02/17 9:00 AM [...] - METBeta jazmin for ASHD with prior OR or prior LVEFANDlt;40 (NQF 0070) - N/ABeta jazmin for HF with prior LVEFANDlt;40 (NQF 0083) - N/AACE-I or ARB for ASHD with DM or prior LVEFANDlt;40 (NQF 0066) - N/AStatin therapy for ASHD or FHL or DM - METBMI documented and plan if ANDgt;25 (NQ 0421) - lifestyle recommendation formTobacco use screening and referral (NQ 0028) - lifestyle recommendation formRecommendation for whole food, plant based diet - lifestyle recommendation formCLINICAL IMPRESSION/PLAN:Roby Flores is doing well. His blood pressure is somewhat low. He wasadvised to decrease fosinopril to 20 milligrams daily and update me with vitalsigns in 2 weeks.He will be getting labs from the [facility] in the near future and I've askedfor a copy.INR has been within range. He is due today.I will see him in 8 months or as needed. If there is increased chest pain orrecurrent syncope, he has been advised to contact me.Written and verbal health teaching given to patient, patient verbalizesunderstanding and agrees with treatment plan.This note was generated using [employer] voice recognition system, and there may besome [...] There is no significantchange.Electronic ally Signed:Darrell Oliveira, [facility] 2017 9:15 [facility]: Carmen Vasquez MD 06/02/2017 9:21 AM AddendumDecrease [...] 24, 2017 at9:00 amReferring Provider: DARRELL OLIVEIRA [[id number]]Allergies As of Date: 06/02/2017(No Known Allergies)Date Reviewed: 06/02/2017Reviewed by: Russell Breaux) Anabella - Fully AssessedReason for Visit: Recheck [92]Primary Visit Diagnosis:ASHD (arteriosclerotic heart disease) [I25.10] Other Visit Diagnosis:PAF (paroxysmal atrial fibrillation) ([facility]) [I48.0]Order(s):ECG B/O W INTERP (MED OFFICE) [ECG06] Order #: [id number] Fosinopril Sodium 40 mg tabletTake 1/2 tablet [...] FOR* 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 Please give serious thought to the following areas and commit to making mcfp changes. EAT A WHOLE FOOD, PLANT BASED [...] on file. Cosign accepted by STAS MORA MD[[id number]] on 09/30/2016 2:01 PM Fosinopril Sodium 40 [...] on file.Follow-up and Disposition History RecordedEncounter Number: [id number] Status:Closed by DARRELL OLIVEIRA MD on 06/02/17 [facility] PROGRESSon 06-02-2017 PROGRESS HNO ID: [id number] thor: Darrell Stahl: (none)Author Type: PhysicianType: Progress NotesFiled: 06/02/2017 9:31 AMNote Text:PERTINENT CARDIAC HISTORYASHD - PCI LAD 2003HTNHLCarotid diseaseSyncopePAFADHERENCE TO GUIDELINESACE-I or ARB for HF with prior LVEF<40 (NQF 0081) - N/AASA or Plavix for ASHD (NQF 0067) - METBeta jazmin for ASHD with prior OR or prior LVEF<40 (NQF 0070) - N/ABeta [...] weeks.He will be getting labs from the [facility] in the near future and I'veasked for a copy.INR has been within range. He is due today.I will see him in 8 months or as needed. If there is increased chest painor recurrent syncope, he has been advised to contact me.Written and verbal health teaching given to patient, patient verbalizesunderstanding and agrees with treatment plan.This note was generated using [employer] voice recognition system, and theremay be some [...] ectopics. 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] INVALID FOR* 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]INVALID FOR* Paroxysmal [...] Status:Closed by ELANA HOOD MA on 03/02/17 [facility] OBSOLETEon 01-23-2017 OBSOLETE Refill (AGCARDWST) -------ROBY FLORES ([id number]) 1935 MDate Time Provider Idjudusqru26/3/17 DARRELL OLIVEIRA AGCARDWST During your visit today, we recorded the following information about you:Dao Bishop RN, RN 01/23/2017 3:15 PM SignedPatient phones requesting refills as follows:Pending Prescriptions Disp Refills WARFARIN 2.5 MG TABLET 45 tablet 11 Sig: Take 1 tablet by mouth daily as directed. 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 Status:Closed by DAO BISHOP on 01/23/17 [facility] Vital Signs Date Time Vital Sign Value Performing Clinician Facility 09-06-2024 14:15-0400 Body temperature 98 [degF] Dr. Stas Mora MD Work Phone: [facility] 09-06-2024 14:15-0400 Diastolic blood pressure 88 mm[Hg] Dr. Stas Mora MD Work Phone: [facility] 09-06-2024 14:15-0400 Heart rate 78 /min Dr. Stas Mora MD Work Phone: [facility] 09-06-2024 14:15-0400 Respiratory rate 18 /min Dr. Stas Mora MD Work Phone: [facility] 09-06-2024 14:15-0400 SaO2% (BldA) [Mass fraction] 97 % Dr. Stas Mora MD Work Phone: [facility] 09-06-2024 14:15-0400 Systolic blood pressure 137 mm[Hg] Dr. Stas Mora MD Work Phone: [facility] 09-04-2024 12:05-0400 Inhaled oxygen flow rate 2 L/min Dr. Stas Mora MD Work Phone: 8(718)531-208704 [place] [address] 09-01-2024 11:52-0400 Body height 182.[address] Stas Mora MD Work Phone: 2(892)262-072004 [place] [address] 09-01-2024 11:52-0400 Body mass index (BMI) [Ratio] 21.6 kg/m2 Dr. Stas Mora MD Work Phone: 9(200)708-334604 [place] [address] 09-01-2024 11:52-0400 Body weight 72.[address] Stas Mora MD Work Phone: 4(122)682-472704 [place] [address] 09-01-2024 11:00-0400 Diastolic blood pressure 79 mm[Hg] Dr. Stas Mora MD Work Phone: 1(963)868-805304 [place] [address] 09-01-2024 11:00-0400 Heart rate 70 /min Dr. Stas Mora MD Work Phone: 9(570)535-379804 [place] [address] 09-01-2024 11:00-0400 Respiratory rate 18 /min Dr. Stas Mora MD Work Phone: 7(896)172-680904 [place] [address] 09-01-2024 11:00-0400 SaO2% (BldA) [Mass fraction] 98 % Dr. Stas Mora MD Work Phone: 0(906)489-037404 [place] [address] 09-01-2024 11:00-0400 Systolic blood pressure 180 mm[Hg] Dr. Stas Mora MD Work Phone: 4(126)159-601304 [place] [address] 09-01-2024 09:52-0400 Body temperature 98.9 [degF] Dr. Stas Mora MD Work Phone: 3(908)849-405104 [place] [address] 09-01-2024 07:31-0400 Body height 182.[address] Stas Mora MD Work Phone: 9(604)273-082904 [place] [address] 09-01-2024 07:31-0400 Body mass index (BMI) [Ratio] 23.4 kg/m2 Dr. Stas Mora MD Work Phone: 1(651)573-926704 [place] [address] 09-01-2024 07:31-0400 Body weight 78.[address] Stas Mora MD Work Phone: [facility] 08-31-2024 11:05-0400 Body mass index (BMI) [Ratio] 22.35 kg/m2 Luciana Cisneros MD Work Phone: [facility] 08-31-2024 11:05-0400 Body weight 73.94 kg Luciana Cisneros MD Work Phone: [facility] 08-31-2024 11:05-0400 Diastolic blood pressure 74 mm[Hg] Luciana Cisneros MD Work Phone: [facility] 08-31-2024 11:05-0400 Heart rate 74 /min Luciana Cisneros MD Work Phone: [facility] 08-31-2024 11:05-0400 Respiratory rate 12 /min Luciana Cisneros MD Work Phone: [facility] 08-31-2024 11:05-0400 SaO2% (BldA) [Mass fraction] 98 % Luciana Cisneros MD Work Phone: [facility] 08-31-2024 11:05-0400 Systolic blood pressure 124 mm[Hg] Luciana Cisneros MD Work Phone: [facility] 07-28-2024 11:12-0400 Diastolic blood pressure 78 mm[Hg] Stas Mora MD Work Phone: [facility] 07-28-2024 11:12-0400 Systolic blood pressure 136 mm[Hg] Stas Mora MD Work Phone: [facility] 07-28-2024 11:10-0400 Body mass index (BMI) [Ratio] 22.4 kg/m2 Stas Mora MD Work Phone: [facility] 07-28-2024 11:10-0400 Body weight 74.1 kg Stas Mora MD Work Phone: [facility] 07-28-2024 11:10-0400 Heart rate 56 /min Stas Mora MD Work Phone: [facility] 07-28-2024 11:10-0400 Respiratory rate 16 /min Stas Mora MD Work Phone: [facility] 06-01-2024 14:52-0400 Body height 181.9 cm Luciana Cisneros MD Work Phone: [facility] 06-01-2024 14:52-0400 Body mass index (BMI) [Ratio] 22.33 kg/m2 Luciana Cisneros MD Work Phone: [facility] 06-01-2024 14:52-0400 Body weight 73.85 kg Luciana Cisneros MD Work Phone: [facility] 06-01-2024 14:52-0400 Diastolic blood pressure 60 mm[Hg] Luciana Cisneros MD Work Phone: [facility] 06-01-2024 14:52-0400 Heart rate 46 /min Luciana Cisneros MD Work Phone: [facility] 06-01-2024 14:52-0400 SaO2% (BldA) [Mass fraction] 98 % Luciana Cisneros MD Work Phone: [facility] 06-01-2024 14:52-0400 Systolic blood pressure 132 mm[Hg] Luciana Cisneros MD Work Phone: [facility] 05-26-2024 09:18-0500 Diastolic blood pressure 82 mm[Hg] Stas Mora MD Work Phone: [facility] 05-26-2024 09:18-0500 Systolic blood pressure 144 mm[Hg] Stas Mora MD Work Phone: [facility] 05-26-2024 09:06-0500 Body mass index (BMI) [Ratio] 22.19 kg/m2 Stas Mora MD Work Phone: [facility] 05-26-2024 09:06-0500 Body weight 73.5 kg Stas Mora MD Work Phone: [facility] 03-06-2025 09:06-0500 Heart rate 56 /min Stas Mora MD Work Phone: [facility] 05-26-2024 09:06-0500 Respiratory rate 18 /min Stas Mora MD Work Phone: [facility] 04-27-2024 09:34-0500 Body height 182 cm Luciana Cisneros MD Work Phone: [facility] 04-27-2024 09:34-0500 Body mass index (BMI) [Ratio] 22.51 kg/m2 Luciana Cisneros MD Work Phone: [facility] 04-27-2024 09:34-0500 Body weight 74.57 kg Luciana Cisneros MD Work Phone: [facility] 04-27-2024 09:34-0500 Diastolic blood pressure 62 mm[Hg] Luciana Cisneros MD Work Phone: [facility] 04-27-2024 09:34-0500 Heart rate 60 /min Luciana Cisneros MD Work Phone: [facility] 04-27-2024 09:34-0500 SaO2% (BldA) [Mass fraction] 98 % Luciana Cisneros MD Work Phone: [facility] 04-27-2024 09:34-0500 Systolic blood pressure 110 mm[Hg] Luciana Cisneros MD Work Phone: [facility] 11-26-2023 10:33-0400 Diastolic blood pressure 80 mm[Hg] Stas Mora MD Work Phone: [facility] 11-26-2023 10:33-0400 Systolic blood pressure 144 mm[Hg] Stas Mora MD Work Phone: [facility] 11-26-2023 10:22-0400 Body mass index (BMI) [Ratio] 21.95 kg/m2 Stas Mora MD Work Phone: [facility] 11-26-2023 10:22-0400 Body weight 71.4 kg Stas Mora MD Work Phone: [facility] 11-26-2023 10:22-0400 Heart rate 60 /min Stas Mora MD Work Phone: [facility] 11-26-2023 10:22-0400 Respiratory rate 18 /min Stas Mora MD Work Phone: [facility] 09-15-2023 08:38-0400 Body mass index (BMI) [Ratio] 24.52 kg/m2 Stas Mora MD Work Phone: [facility] 09-15-2023 08:38-0400 Body weight 79.74 kg Stas Mora MD Work Phone: [facility] 09-15-2023 08:38-0400 Diastolic blood pressure 84 mm[Hg] Stas Mora MD Work Phone: [facility] 09-15-2023 08:38-0400 Heart rate 76 /min Stas Mora MD Work Phone: [facility] 09-15-2023 08:38-0400 Respiratory rate 18 /min Stas Mora MD Work Phone: [facility] 09-15-2023 08:38-0400 Systolic blood pressure 138 mm[Hg] Stas Mora MD Work Phone: [facility] 08-14-2023 09:57-0400 Body mass index (BMI) [Ratio] 22.59 kg/m2 Stas Mora MD Work Phone: [facility] 08-14-2023 09:57-0400 Body weight 73.48 kg Stas Mora MD Work Phone: [facility] 08-14-2023 09:57-0400 Diastolic blood pressure 80 mm[Hg] Stas Mora MD Work Phone: [facility] 08-14-2023 09:57-0400 Heart rate 64 /min Stas Mora MD Work Phone: [facility] 08-14-2023 09:57-0400 Respiratory rate 14 /min Stas Mora MD Work Phone: [facility] 08-14-2023 09:57-0400 Systolic blood pressure 140 mm[Hg] Stas Mora MD Work Phone: [facility] 06-01-2023 15:08-0400 Body weight 75.75 kg Stas Mora MD Work Phone: [facility] 06-01-2023 15:08-0400 Diastolic blood pressure 90 mm[Hg] Stas Mora MD Work Phone: [facility] 06-01-2023 15:08-0400 Heart rate 82 /min Stas Mora MD Work Phone: [facility] 06-01-2023 15:08-0400 Respiratory rate 16 /min Stas Mora MD Work Phone: [facility] 06-01-2023 15:08-0400 SaO2% (BldA) [Mass fraction] 100 % Stas Mora MD Work Phone: [facility] 06-01-2023 15:08-0400 Systolic blood pressure 140 mm[Hg] Stas Mora MD Work Phone: [facility] 02-16-2023 13:57-0500 Diastolic blood pressure 62 mm[Hg] Stas Mora MD Work Phone: [facility] 02-16-2023 13:57-0500 Heart rate 62 /min Stas Mora MD Work Phone: [facility] 02-16-2023 13:57-0500 Respiratory rate 16 /min Stas Mora MD Work Phone: [facility] 02-16-2023 13:57-0500 Systolic blood pressure 110 mm[Hg] Stas Mora MD Work Phone: [facility] 02-10-2023 16:59-0500 Diastolic blood pressure 68 mm[Hg] [facility] 02-10-2023 16:59-0500 Heart rate 79 /min [facility] 02-10-2023 16:59-0500 Respiratory rate 12 /min [facility] 02-10-2023 16:59-0500 SaO2% (BldA) [Mass fraction] 98 % [facility] 02-10-2023 16:59-0500 Systolic blood pressure 153 mm[Hg] [facility] 02-10-2023 14:37-0500 Body mass index (BMI) [Ratio] 22.1 kg/m2 [facility] 02-10-2023 14:37-0500 Body weight 74.3 kg [facility] 02-10-2023 14:32-0500 Body height 182.88 cm [facility] 02-10-2023 14:32-0500 Body temperature 98 [degF] [facility] 11-17-2022 17:22-0400 Diastolic Blood Pressure Non-Invasive 68 1 [employer] [employer] [facility] 11-17-2022 17:22-0400 Heart rate 76 /min [employer] [facility] 11-17-2022 17:22-0400 Respiratory rate 18 /min [employer] [facility] 11-17-2022 17:22-0400 Systolic Blood Pressure Non-Invasive 126 1 [employer] [employer] [facility] 11-17-2022 15:23-0400 Body height 185.4 cm [facility] [employer] [facility] 11-17-2022 15:23-0400 Body temperature 97.88 [degF] [facility] [employer] [facility] 11-17-2022 15:23-0400 Body weight 79.6 kg [employer] [employer] [facility] 11-17-2022 15:23-0400 Diastolic Blood Pressure Non-Invasive 70 1 [employer] [facility] 11-17-2022 15:23-0400 Heart rate 89 /min [facility] [employer] [facility] 11-17-2022 15:23-0400 Respiratory rate 18 /min [employer] [facility] 11-17-2022 15:23-0400 Systolic Blood Pressure Non-Invasive 134 1 [employer] LYNCH [employer] [facility] 08-26-2022 13:12-0400 Body height 180.3 cm Stas Mora MD Work Phone: [facility] 08-26-2022 13:12-0400 Body weight 78.74 kg Stas Mora MD Work Phone: [facility] 08-26-2022 13:12-0400 Diastolic blood pressure 74 mm[Hg] Stas Mora MD Work Phone: [facility] 08-26-2022 13:12-0400 Heart rate 66 /min Stas Mora MD Work Phone: [facility] 08-26-2022 13:12-0400 Respiratory rate 16 /min Stas Mora MD Work Phone: [facility] 08-26-2022 13:12-0400 Systolic blood pressure 122 mm[Hg] Stas Mora MD Work Phone: [facility] 12-26-2021 11:22-0400 Body weight 78.56 kg Stas Mora MD Work Phone: [facility] 12-26-2021 11:22-0400 Diastolic blood pressure 80 mm[Hg] Stas Mora MD Work Phone: [facility] 12-26-2021 11:22-0400 Heart rate 58 /min Stas Mora MD Work Phone: [facility] 12-26-2021 11:22-0400 Respiratory rate 16 /min Stas Mora MD Work Phone: [facility] 12-26-2021 11:22-0400 Systolic blood pressure 142 mm[Hg] Stas Mora MD Work Phone: [facility] 12-22-2021 11:13-0400 Body temperature 97.6 [degF] Dr. Stas Mora Work Phone: [facility] Work Phone: 12-22-2021 11:13-0400 Diastolic blood pressure 58 mm[Hg] Dr. Stas Mora Work Phone: [facility] Work Phone: 12-22-2021 11:13-0400 Heart rate 63 /min Dr. Stas Mora Work Phone: [facility] Work Phone: 12-22-2021 11:13-0400 Respiratory rate 16 /min Dr. Stas Mora Work Phone: [facility] Work Phone: 12-22-2021 11:13-0400 SaO2% (BldA) [Mass fraction] 96 % Dr. Stas Mora Work Phone: [facility] Work Phone: 12-22-2021 11:13-0400 Systolic blood pressure 142 mm[Hg] Dr. Stas Mora Work Phone: [facility] Work Phone: 12-21-2021 20:06-0400 Body height 182.[address] Stas Mora Work Phone: [facility] Work Phone: 12-21-2021 20:06-0400 Body mass index (BMI) [Ratio] 22.6 kg/m2 Dr. Stas Mora Work Phone: [facility] Work Phone: 12-21-2021 20:06-0400 Body weight 75.[address] Stas Mora Work Phone: [facility] Work Phone: 12-21-2021 19:15-0400 Diastolic blood pressure 81 mm[Hg] [facility] Work Phone: 12-21-2021 19:15-0400 Heart rate 70 /min [facility] Work Phone: 12-21-2021 19:15-0400 Respiratory rate 18 /min [facility] Work Phone: 12-21-2021 19:15-0400 SaO2% (BldA) [Mass fraction] 96 % [facility] Work Phone: 12-21-2021 19:15-0400 Systolic blood pressure 171 mm[Hg] [facility] Work Phone: 12-21-2021 19:02-0400 Body temperature 97.6 [degF] [facility] Work Phone: 12-21-2021 18:17-0400 Body height 182.88 cm [facility] Work Phone: 12-21-2021 18:17-0400 Body mass index (BMI) [Ratio] 24.2 kg/m2 [facility] Work Phone: 12-21-2021 18:17-0400 Body weight 80.9 kg [facility] Work Phone: 09-05-2021 11:21-0400 Body height 182.9 cm Stas Mora MD Work Phone: [facility] 09-05-2021 11:21-0400 Body weight 80.2 kg Stas Mora MD Work Phone: [facility] 09-05-2021 11:21-0400 Diastolic blood pressure 70 mm[Hg] Stas Mora MD Work Phone: [facility] 09-05-2021 11:21-0400 Heart rate 62 /min Stas Mora MD Work Phone: [facility] 09-05-2021 11:21-0400 Respiratory rate 16 /min Stas Mora MD Work Phone: [facility] 09-05-2021 11:21-0400 Systolic blood pressure 136 mm[Hg] Stas Mora MD Work Phone: [facility] 07-08-2021 10:41-0400 Body weight 83.55 kg Stas Mora MD Work Phone: [facility] 07-08-2021 10:41-0400 Diastolic blood pressure 78 mm[Hg] Stas Mora MD Work Phone: [facility] 07-08-2021 10:41-0400 Heart rate 60 /min Stas Mora MD Work Phone: [facility] 07-08-2021 10:41-0400 Respiratory rate 16 /min Stas Mora MD Work Phone: [facility] 07-08-2021 10:41-0400 Systolic blood pressure 120 mm[Hg] Stas Mora MD Work Phone: [facility] Encounters Encounter Date Encounter Type Care Provider Facility Start: 11-25-2024 ambulatory Efewongbe Gabee OLS Fa cility:[facility] Start: 11-23-2024 ambulatory Efewongbe Oleghe OLS Fa cility:[facility] Start: 11-23-2024 Registered Referred Shayy Curtis MD -[facility] Start: 11-02-2024 ambulatory Efewongbe Oleghe OLS Fa cility:[facility] Start: 11-02-2024 Registered Referred Shayy Curtis MD [facility] Start: 10-31-2024 ambulatory Efewongbe Oletomye OLS Fa cility:[facility] Start: 10-31-2024 [facility] Start: 10-25-2024 End: 10-25-[address] Stas Mora MD Work Phone: -[facility] Start: 10-25-2024 End: 10-25-[address] Shayy Curtis MD -[facility] Work Phone: Start: 10-20-2024 End: 10-20-[address] Stas Mora MD Work Phone: -[facility] Start: 10-20-2024 End: 10-20-2024 Patient encounter procedure Halina Carmona C[employer] SHARPENER-C -[facility] Work Phone: Start: 10-06-2024 ambulatory Shayy Curtis OLS Fa cility:[facility] Start: 10-06-2024 Registered Referred Shayy Curtis MD -[facility] Start: 10-05-2024 ambulatory Shayy Curtis OLS Fa cility:[facility] Start: 10-05-2024 Registered Referred Shayy Curtis MD -[facility] Start: 09-30-2024 End: 09-30-[address] Stas Mora MD Work Phone: -[facility] Start: 09-30-2024 End: 09-30-2024 Patient encounter procedure Halina Carmona NP-C -[facility] Work Phone: Start: 09-29-2024 ambulatory Shayy Curtis OLS Fa cility:[facility] Start: 09-29-2024 Registered Referred Shayy Cardozo Start: 09-28-2024 End: 09-28-[address] Stas Mora MD Work Phone: -[facility] Start: 09-28-2024 End: 09-28-2024 Departed Referred Shayy Cardozo Start: 09-28-2024 Registered Referred Shayy Cardozo Start: 09-28-2024 End: 09-28-2024 ambulatory Stas Mora Facility:[facility] Start: 09-26-2024 End: 09-26-[address] Stas Mora MD Work Phone: -[facility] Start: 09-26-2024 End: 09-26-2024 Departed Referred Shayy Cardozo Start: 09-26-2024 Registered Referred Shayy Cardozo Start: 09-26-2024 End: 09-26-2024 ambulatory Stas Mora Facility:[facility] Start: 09-23-2024 ambulatory Shayy GAMA Fa cility:[facility] Start: 09-23-2024 Registered Referred Shayy Cardozo Start: 09-21-2024 End: 09-22-2024 Telephone encounter Stas Mora MD Work Phone: [facility] Start: 09-21-2024 ambulatory Stas Chuyelliot Facilit y:[facility] Start: 09-21-2024 Registered Referred Shayy Cardozo Start: 09-20-2024 End: 09-20-[address] Stas Mora MD Work Phone: [facility] Start: 09-20-2024 End: 09-20-[address] Shayy Curtis MD -[facility] Work Phone: Start: 09-19-2024 ambulatory Stas Mora Facilit y:[facility] Start: 09-19-2024 Registered Referred Shayy Cardozo Start: 09-15-2024 ambulatory Stas Umanaoniel Facilit y:[facility] Start: 09-15-2024 Registered Referred Shayy Cardozo Start: 09-14-2024 ambulatory Shayy Curtis OLS Fa cility:[facility] Start: 09-14-2024 Registered Referred Shayy Cardozo Start: 09-12-2024 ambulatory Shayy Curtis OLS Fa cility:[facility] Start: 09-12-2024 Registered Referred Shayy Cardozo Start: 09-08-2024 End: 09-08-2024 Patient encounter procedure Halina Lintonimelda [facility] Work Phone: Start: 09-08-2024 End: 09-08-[address] Stas Mora MD Work Phone: [facility] Start: 09-08-2024 Registered Referred Shayy Cardozo Start: 09-07-2024 End: 09-07-2024 Patient encounter procedure Halina Lintonimelda [facility] Work Phone: Start: 09-07-2024 End: 09-07-[address] Stas Mora MD Work Phone: [facility] Start: 09-07-2024 Registered Referred Shayy Cardozo Start: 09-06-2024 Non-patient / Non-visit Dr. Navid Dominguez MD -[facility] Work Phone: Start: 09-05-2024 Non-patient / Non-visit Dr. Navid Dominguez MD -[facility] Work Phone: Start: 09-04-2024 Non-patient / [facility] Work [facility]: Start: 09-03-2024 Non-patient / Non-visit [facility] Work Phone: Start: 09-02-2024 Non-patient / Non-visit [facility] Work Phone: Start: 09-02-2024 ambulatory Kathy Wells Facility :[facility] Start: 09-02-2024 End: 09-06-2024 Evaluation and management of inpatient Dr. Navid Dominguez MD -[facility] Work Phone: Start: 09-01-2024 End: 09-01-2024 Telephone encounter Russell Aguayo [facility] Work Phone: [facility] Comment on above: Medication Problem ( Cost) Start: 09-01-2024 ambulatory Kathy Wells Facility :[facility] Start: 09-01-2024 Evaluation and management of inpatient Dr. Kathy Wells MD -[facility] Work Phone: Start: 09-01-2024 Non-patient / Non-visit Dr. Jia Wells MD -[facility] Work Phone: Start: 09-01-[address] Stas Mora MD Work Phone: [facility] Work Phone: Start: 08-31-2024 End: 08-31-2024 Telephone encounter Coretta Jalloh [facility]ulatory Telemanagement Comment on above: Anticoagulation Tele phone Fu (Home INR result ) Start: 08-31-2024 End: 08-31-2024 ambulatory STAS MORA Facility:[facility] Start: 08-31-2024 End: 08-31-2024 Office outpatient visit 25 minutes Luciana Cisneros MD Work Phone: Geriatrics Comment on above: Moderate dementia wi thout behavioral disturbance, psychotic disturbance, mood disturbance, or anxiety, unspecified dementia type (HCC) (Primary Dx); Hallucinations; Screening for depression; Encounter for screening examination for other mental health and behavioral disorders Start: 08-31-2024 End: 08-31-2024 ambulatory LUCIANA CISNEROS Facility:[facility] Start: 08-03-2024 End: 08-03-2024 Telephone encounter Coretta Jalloh [facility]ulatory [facility] Comment on above: Anticoagulation Tele phone Fu (Lab INR result) Start: 08-03-2024 End: 08-03-2024 ambulatory STAS MORA Facility:[facility] Start: 07-28-2024 End: 07-28-2024 Office outpatient visit 15 minutes Stas Mora MD Work Phone: [facility] [place] Comment on above: Bursitis of right el bow, unspecified bursa (Primary Dx) Start: 07-28-2024 End: 07-28-2024 ambulatory STAS MORA Facility:[facility] Start: 07-06-2024 End: 07-06-2024 Telephone encounter Coretta Jalloh [facility]ulatory Tele[facility] Comment on above: Anticoagulation Tele phone Fu (Lab INR result ) Start: 07-06-2024 End: 07-06-2024 ambulatory [facility] Facility:[facility] Start: 06-29-2024 End: 06-29-2024 Telephone encounter Coretta Jalloh [facility]ulatory [facility] Comment on above: Anticoagulation Tele phone Fu (Lab INR result ) Start: 06-29-2024 End: 06-29-2024 ambulatory [facility] Facility:[facility] Start: 06-01-2024 End: 06-01-2024 Office consultation new/estab patient 80 min Luciana Cisneros MD Work Phone: Geriatrics Comment on above: Mixed dementia (HCC) (Primary Dx); Vascular parkinsonism (HCC) Start: 06-01-2024 End: 06-01-2024 ambulatory LUCIANA CISNEROS Facility:[facility] Start: 06-01-2024 End: 08-01-2024 Follow-up encounter Luciana Cisneros MD Work Phone: Geriatrics Start: 05-26-2024 End: 05-26-2024 Telephone encounter Luciana Cisneros MD Work Phone: Geriatrics Comment on above: Appointment (Resched ule for geriatric f/u) Start: 05-26-2024 End: 05-26-2024 ambulatory [facility] Facility:[facility] Start: 05-26-2024 End: 05-26-2024 Patient encounter procedure Stas Mora MD Work Phone: [facility] [place] Comment on above: Essential hypertensi on, benign (Primary Dx); Hyperlipidemia, unspecified hyperlipidemia type; Atherosclerosis 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, unspecified vessel or lesion type, unspecified whether [place] or transplanted heart; Paroxysmal atrial fibrillation (HCC); Edema of both lower legs; History of stroke with residual effects; Dementia, unspecified dementia severity, unspecified dementia type, unspecified whether behavioral, psychotic, or mood disturbance or anxiety (HCC) Start: 05-25-2024 End: 05-25-2024 Telephone encounter Paige Hickman [facility] Comment on above: Anticoagulation Tele phone Fu (Lab INR Result ) Start: 05-25-2024 End: 05-25-2024 ambulatory STAS MORA Facility:[facility] Start: 05-23-2024 ambulatory LUCIANA CISNEROS Facility :[id number] Start: 05-23-2024 End: 05-23-2024 Subsequent hospital visit by physician [facility] Work Phone: [facility] Comment on above: Cognitive impairment , mild, 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] Start: 04-28-2024 End: 04-29-2024 Telephone encounter Stas Mora MD Work Phone: [facility] [place] Comment on above: Results Start: 04-27-2024 End: 04-27-2024 Telephone encounter Coretta Jalloh [facility] Comment on above: Anticoagulation Tele phone Fu (Lab INR result ) Start: 04-27-2024 End: 04-27-2024 ambulatory LUCIANA CISNEROS Facility:[facility] Start: 04-27-2024 End: 04-27-2024 Assmt & care planning pt w/cognitive impairment Luciana Cisneros MD Work Phone: Geriatrics Comment on above: Dementia, unspecifie d dementia severity, unspecified dementia type, unspecified whether behavioral, psychotic, or mood disturbance or anxiety (HCC) (Primary Dx); Cognitive impairment; Cognitive impairment, mild, so stated; Shuffling gait; Ambulatory dysfunction; Balance disorder Start: 04-27-2024 End: 04-27-2024 ambulatory LUCIANA CISNEROS Facility:[facility] Start: 04-25-2024 End: 04-25-2024 Telephone encounter Stas Mora MD Work Phone: [facility] [place] Comment on above: memory issues Start: 04-13-2024 End: 04-13-2024 Telephone encounter Coretta Jalloh [facility] Comment on above: Anticoagulation Tele phone Fu (Home INR result ) Start: 04-13-2024 End: 04-13-2024 ambulatory STAS MORA Facility:[facility] Start: 03-30-2024 End: 03-30-2024 Telephone encounter Coretta Jalloh [facility] Comment on above: Anticoagulation Tele phone Fu (Lab INR result ) Start: 03-30-2024 End: 03-30-2024 ambulatory [facility] Facility:[facility] Start: 03-17-2024 End: 03-17-2024 Telephone encounter Josy Collins [facility] Comment on above: Anticoagulation Tele phone Fu (Lab INR result ) Start: 03-17-2024 End: 03-17-2024 ambulatory [facility] Facility:[facility] Start: 03-03-2024 End: 03-03-2024 Telephone encounter Elise Paredes [facility] Comment on above: Anticoagulation Tele phone Fu (Lab INR result) Start: 03-03-2024 End: 03-03-2024 ambulatory [facility] Facility:[facility] Start: 02-10-2024 End: 02-10-2024 Telephone encounter Coretta Jalloh [facility] Comment on above: Anticoagulation Tele phone Fu (Lab INR result ) Start: 02-10-2024 End: 02-10-2024 ambulatory [facility] Facility:[facility] Start: 01-20-2024 End: 01-20-2024 Telephone encounter Coretta Jalloh [facility] Comment on above: Anticoagulation Tele phone Fu (Lab INR results ) Start: 01-20-2024 End: 01-20-2024 ambulatory [facility] Facility:[facility] Start: 01-04-2024 End: 01-04-2024 Telephone encounter Stas Mora MD Work Phone: 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: Medication Request Start: 12-24-2023 End: 12-24-2023 Telephone encounter Elise Paredes [facility] Comment on above: Anticoagulation Tele phone Fu (Lab INR) Start: 12-23-2023 End: 12-23-2023 ambulatory [facility] Facility:[facility] Start: 12-10-2023 End: 12-10-2023 Telephone encounter Elise Paredes [facility] Comment on above: Anticoagulation Tele phone Fu (Lab INR) Start: 12-09-2023 End: 12-09-2023 ambulatory STAS MORA Facility:[facility] Start: 11-26-2023 End: 11-26-2023 Telephone encounter Elise Paredes [facility]ulatory [facility] Comment on above: Anticoagulation Tele phone Fu (Lab INR) Start: 11-26-2023 End: 11-26-2023 Patient encounter procedure Stas Mora MD Work Phone: [facility] [place] Comment on above: Essential hypertensi on, benign (Primary Dx); Hyperlipidemia, unspecified hyperlipidemia type; Edema of both lower legs; Paroxysmal atrial fibrillation (HCC); History of stroke with residual effects; 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: Refill Request Start: 10-14-2023 Telephone encounter Coretta Jalloh [facility] Ambulatory Telemanagement Comment on above: Anticoagulation Tele phone Fu (Home INR results ) Start: 09-16-2023 Telephone encounter Colleen Sommer [facility]ulatory Tele[facility] Comment on above: Anticoagulation Tele phone Fu Start: 09-15-2023 End: 09-15-2023 Patient encounter procedure Stas Mora MD Work Phone: 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: Edema of both lower legs (Primary Dx) Start: 09-14-2023 End: 09-14-2023 ambulatory Nurse Intm/Famp Triage [facility] Work Phone: Nurse Phone Triage Comment on above: Leg swelling Start: 09-02-2023 Telephone encounter [facility] Comment on above: Anticoagulation Tele phone Fu (Lab INR results) Start: 08-26-2023 Telephone encounter [facility] Comment on above: Anticoagulation Tele phone Fu (Lab INR results ) Start: 08-19-2023 Telephone encounter [facility]ta [facility]alloh [facility] Comment on above: Anticoagulation Tele phone Fu (Lab INR) Start: 08-14-2023 End: 08-14-2023 Patient encounter procedure Stas Mora MD Work Phone: 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: Moderate vascular de mentia without behavioral disturbance, psychotic disturbance, mood disturbance, or anxiety (HCC) (Primary Dx); Essential hypertension, benign; Paroxysmal atrial fibrillation (HCC) Start: 08-12-2023 Telephone encounter [facility]ta[facility]aldo Jalloh [facility] Ambulatory [...] ow Up Start: 07-22-2023 Telephone encounter [facility]ta Yeimi [facility] Comment on above: Anticoagulation Tele phone Fu (Lab INR results ) Start: 07-16-2023 Refill Elvis RASHID RN.[facility] Work Phone: 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: Refill Request Start: 07-15-2023 Telephone encounter [facility]ta Taryaquelin [facility] Comment on above: Anticoagulation Tele phone Fu (Lab INR results ) Start: 07-08-2023 Telephone encounter [facility]ta Taryaquelin [facility] Comment on above: Anticoagulation Tele phone Fu (Lab INR ) Start: 07-02-2023 Telephone encounter [facility] Tarcy [facility] Comment on above: Opened In Error Start: 07-01-2023 Telephone encounter [facility] Comment on above: Anticoagulation Tele phone Fu (Home INR ) Start: 06-25-2023 End: 04-13-2024 Telephone encounter Pharmacist [facility] Comment on above: Patient Update Start: 06-24-2023 Telephone encounter Jerzy Easton MD Work Phone: [facility] [place] Comment on above: Anticoagulation Start: 06-11-2023 Telephone encounter Stas miranda MD Work Phone: [facility] [place] Comment on above: Anticoagulation Start: 06-08-2023 Telephone encounter Jenna Armenta nhof MUTUEL MACHINE OPERATOR.ATTORNEY LAWYER Work Phone: [facility] [place] Comment on above: Erroneous encounter- disregard Anticoagulation Start: 06-05-2023 Telephone encounter Jenna Armenta nhof MUTUEL MACHINE OPERATOR.ATTORNEY LAWYER Work Phone: [facility] [place] Comment on above: Results (Labs, Criti cleopatra ) Start: 06-04-2023 ambulatory Hortencia Winston RN NURSE O N CALL Comment on above: Results, Lab High Protime and INR Start: 06-04-2023 E-mail encounter fro m caregiver Jasmin Bell MD Work Phone: [facility] [place] Start: 06-04-2023 Telephone encounter Jenna Armenta riof MUTUEL MACHINE OPERATOR.ATTORNEY LAWYER Work Phone: [facility] [place] Comment on above: Results; Orders (Lab s ) Start: 06-03-2023 Telephone encounter [facility] Comment on above: Anticoagulation Tele phone Fu (Lab INR results ) Start: 06-01-2023 End: 06-01-2023 Patient encounter procedure Stas Mora MD Work Phone: [facility] [place] Comment on above: Essential hypertensi on, benign (Primary Dx); Paroxysmal atrial fibrillation (HCC); Atherosclerosis 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, unspecified vessel or lesion type, unspecified whether [place] or transplanted heart; Hyperlipidemia, unspecified hyperlipidemia type; [...] results) Start: 05-13-2023 Telephone encounter Senia Phillips [facility]ulatory Telemanagement Comment on above: Anticoagulation Tele phone Fu (INR Lab Result) Start: 05-06-2023 Telephone encounter [facility] Comment on above: Anticoagulation Tele phone Fu (Lab INR results ) Start: 04-29-2023 Telephone encounter [facility] Yeimi [facility] Comment on above: Anticoagulation Tele phone Fu (Home INR results ) Start: 02-20-2023 Telephone encounter Elise Paredes [facility] Comment on above: Anticoagulation Tele phone Fu (Lab INR) Start: 02-17-2023 Telephone encounter Stas miranad MD Work Phone: 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: Results Start: 02-17-2023 End: 02-17-2023 Subsequent hospital visit by physician Mri Radio [facility] Wstr (I-Stat/1.5t) Work Phone: Radiology Comment on above: Cerebral infarction, unspecified mechanism (HCC) [I63.9] Start: 02-16-2023 End: 02-16-2023 Patient encounter procedure Stas Mora MD Work Phone: 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: Cerebral infarction, unspecified mechanism (HCC) (Primary Dx); Generalized weakness; Speech disturbance, unspecified type; Hyperlipidemia, unspecified hyperlipidemia type; Essential hypertension, benign; Paroxysmal atrial fibrillation (HCC) Start: 02-13-2023 Telephone encounter Elise Paredes [facility] Telemanagement Comment on above: Anticoagulation Tele phone Fu (Lab INR) Start: 02-10-2023 End: 02-10-2023 Emergency department patient visit [facility] Work Phone: Start: 02-06-2023 Telephone encounter Senia Phillips [facility] P harmacy Ambulatory Telemanagement Comment on above: Anticoagulation Tele phone Fu (INR Lab Result) Start: 01-19-2023 Telephone encounter [facility] Comment on above: Anticoagulation Tele phone Fu Start: 01-16-2023 Orders Only Stas newman MD Work Phone: 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 (Primary Dx); [...] Emergency department patient visit STERLING LYNCH DO [facility] Start: 11-07-2022 Telephone encounter Senia Cross RPh [...] Lab Result) Start: 10-17-2022 Telephone encounter Yomi Elma [facility] Ambulatory Telemanagement Comment on [...] encounter procedure Stas Mora MD Work Phone: [facility] [place] Comment on above: Encounter for Medica re [...] Result) Start: 07-04-2022 Telephone encounter Lety Gandara [facility] Comment on above: Anticoagulation Tele phone Fu (Lab INR result ) Start: 06-23-2022 Refill Elvis RASHID RN.ATTORNEY LAWYER Work Phone: 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: Refill Request Start: 06-20-2022 Telephone encounter Senia Cross [facility] P harmacy Ambulatory Telemanagement Comment on above: Anticoagulation Tele phone Fu (INR Lab Result) Start: 06-06-2022 Telephone encounter Senia Cross [facility] P harmacy Ambulatory Telemanagement Comment on above: Anticoagulation Tele phone Fu (INR Lab Result) Start: 05-30-2022 Telephone encounter Stas miranda MD Work Phone: 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: Opened In Error Start: 05-22-2022 Telephone encounter Jenna Armenta nhof MUTUEL MACHINE OPERATOR.ATTORNEY LAWYER Work Phone: 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: Results (X-ray hip) Start: 05-21-2022 End: 05-21-2022 Subsequent hospital visit by physician Jaymie [facility] [place] Work Phone: Radiology Comment on above: Left hip pain [M25.5 52] Start: 05-21-2022 ambulatory Fani Grace RN NURSE O N CALL Comment on above: Fall Fall; Hip Pain Start: 05-19-2022 Telephone encounter Stas miranda MD Work Phone: 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: Anticoagulation Start: 05-16-2022 Telephone [...] Result) Start: 04-04-2022 Telephone encounter Elise Paredes [facility] Comment on above: Anticoagulation Tele phone Fu (Lab INR) Start: 03-31-2022 Telephone encounter Stas miranda MD Work Phone: [facility] [place] Comment on above: Release Of Medical R ecords ([place] PCP) Start: 03-21-2022 Telephone encounter Carmelina Barnesuett [facility] Comment on above: Anticoagulation Tele phone Fu Start: 02-21-2022 Telephone encounter Kristian Ferguson MD Work Phone: [facility] [place] Comment on above: Anticoagulation Start: 02-10-2022 Telephone encounter Stas miranda MD Work Phone: [facility] [place] Comment on above: Opened In Error Start: 01-27-2022 Telephone encounter [facility] Comment on above: Anticoagulation Tele phone Fu (Lab INR Result) Start: 01-20-2022 Telephone encounter [facility] Comment on above: Anticoagulation Tele phone Fu (Lab INR Result) Start: 01-17-2022 Telephone encounter Stas miranda MD Work Phone: [facility] [place] Comment on above: Anticoagulation; Cri tical Results (INR) Start: 01-13-2022 Refill Stas newman MD Work Phone: [facility] [place] Comment on above: Refill Request; Refi ll Request Start: 01-03-2022 Telephone encounter Senia Alan [facility] Telemanagement Comment on above: Anticoagulation Tele phone Fu (INR Home Test Result) Start: 01-02-2022 Telephone encounter Stas miranda MD Work Phone: [facility] [place] Comment on above: Results Start: 12-26-2021 End: 12-26-2021 Patient encounter procedure Stas Mora MD Work Phone: [facility] [place] Comment on above: Hospital discharge f ollow-up (Primary Dx); Encounter for immunization; TIA (transient ischemic attack); Thyroid nodule; Essential hypertension, benign; Paroxysmal atrial fibrillation (HCC); Atherosclerosis 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, unspecified vessel or lesion type, unspecified whether [place] or transplanted heart Start: 12-22-2021 Non-patient / Non-visit Dr. Maria E Mora Work Phone: [facility] Start: 12-21-2021 Non-patient / Non-visit Dr. Maria E Mora Work Phone: [facility] Start: 12-21-2021 End: 12-22-2021 Evaluation and management of inpatient [facility] Care Unit Start: 12-21-2021 End: 12-22-[address] Stas Mora Work Phone: [facility] Work Phone: Start: 12-20-2021 Telephone encounter Stas miranda MD Work Phone: 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: Opened In Error Anticoagulation Tele phone Fu (INR Lab Result) Start: 12-06-2021 Telephone encounter Senia Phillips [facility] Tele[facility] Comment on above: Anticoagulation Tele phone Fu (INR Lab Result) Start: 11-22-2021 Telephone encounter Janice Huang [facility] Telemanagement Comment on above: Anticoagulation Tele phone Fu (INR) Start: 11-08-2021 Telephone encounter Stas miranda MD Work Phone: 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: Opened In Error Anticoagulation Tele phone Fu (INR Lab Result) Start: 10-25-2021 Telephone encounter Janice Huang [facility] Telemanagement Comment on above: Anticoagulation Tele phone Fu (lab INR ) Start: 09-27-2021 Telephone encounter Yomi Wills [facility]ulatory Telemanagement Comment on above: Anticoagulation Tele phone Fu (Lab INR Result) Start: 09-13-2021 Orders Only Stas newman MD Work Phone: 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 (Primary Dx); Encounter for monitoring Coumadin therapy Anticoagulation Tele phone Fu (INR Lab Result) Start: 09-05-2021 End: 09-05-2021 Patient encounter procedure Stas Mora MD Work Phone: [facility] [place] Comment on above: Encounter for Medica re annual wellness exam (Primary Dx); Paroxysmal atrial fibrillation (HCC); Essential hypertension, benign Start: 08-30-2021 Telephone encounter Jenna Armenta nhof MUTUEL MACHINE OPERATOR.ATTORNEY LAWYER Work Phone: [facility] [place] Comment on above: Orders (INR ) Anticoagulation Tele phone Fu (INR Lab Result) Start: 08-16-2021 Orders Only Stas newman MD Work Phone: [facility] [place] Comment on above: Anticoagulation Start: 08-02-2021 Telephone encounter Senia Alan [facility] Telemanagement Comment on above: Anticoagulation Tele phone Fu (INR Lab Result) Start: 07-16-2021 Telephone encounter Stas miranda MD Work Phone: [facility] [place] Comment on above: Results Start: 07-13-2021 Refill Elvis RASHID RN.ATTORNEY LAWYER Work Phone: [facility] [place] Comment on above: Refill Request Start: 07-08-2021 End: 07-08-2021 Patient encounter procedure Stas Mora MD Work Phone: [facility] [place] Comment on above: Essential hypertensi on, benign (Primary Dx); Atherosclerosis 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, unspecified vessel or lesion type, unspecified whether [place] or transplanted heart; Paroxysmal atrial fibrillation (HCC); Primary osteoarthritis of both knees Start: 07-03-2021 Telephone encounter Stas miranda MD Work Phone: [facility] [place] Comment on above: Anticoagulation Tele phone Fu (Lab INR result) Start: 06-12-2021 Telephone encounter Stas miranda MD Work Phone: [facility] [place] Comment on above: Anticoagulation (Lab INR result) Start: 03-12-2020 End: 03-12-2020 Subsequent hospital visit by physician Jaymie [facility] [place] Work Phone: Radiology Comment on above: Acute right-sided lo w back pain, unspecified whether sciatica present [M54.5] Start: 02-02-2018 Ambulatory DARRELL OLIVEIRA Facility :[facility] Start: 06-02-2017 End: 06-02-2017 Ambulatory DARRELL OLIVEIRA [facility] Procedures Date Procedure Procedure Detail Performing [...] Adult depression scr eening assessment Coretta Jalloh [facility] Start: 02-17-2023 Mri brain brain stem w/o contrast material Stas Mora MD Work Phone: Start: 02-10-2023 Plain chest X-ray Start: 02-10-2023 SARS-CoV-2 & FLU Ant igen (Rapid) Start: 05-21-2022 Radex hip unilateral with pelvis 2-3 views Jenna Fitzpatrick APRN.ATTORNEY LAWYER Work Phone: Start: 05-19-2022 PROTHROMBIN TIME/PT [facility] [...] Detail Author Start: 02-27-2031 Urine microalbumin profile [facility] Start: 05-26-2027 Diabetes Screening Diabetes Screenin [facility] Start: 06-02-2026 Diabetes Screening Diabetes Screenin [facility] Start: 08-15-2025 DIABETES SCREEN DIABETES SCREEN [facility] Start: 08-15-2025 Diabetes Screening Diabetes Screenin [facility] Start: 05-25-2025 Hepatitis B surface antibody level LDL Cholesterol [facility] Start: 03-30-2025 End: 03-30-2025 Patient encounter procedure 03/30/2025 11:00 AM EST Office Visit Geriatric[facility] [address] [place] [address] Luciana Cisneros MD [address] [place] [id number] follow up 6 months Geriatrics Comment on above: follow up 6 months Start: 02-21-2025 DIABETES SCREEN DIABETES SCREEN [facility] Start: 12-06-2024 DIABETES SCREEN DIABETES SCREEN [facility] Start: 12-05-2024 End: 12-05-2024 Patient encounter procedure 12/05/2024 12:40 PM EDT Office Visit [facility] [place] [address] [facility] [place] [address] Stas Mora MD [address] [place] [address] reschedule from 12/01 [facility] [place] Comment on above: reschedule from 12/01 Start: 12-01-2024 End: 12-01-2024 Patient encounter procedure 12/01/2024 9:40 AM EDT Office Visit [facility] [place] [address] [facility] [place] [address] Stas Mora MD [address] [facility] [place] [address] 6 mo f/u [facility] [place] Comment on above: 6 mo f/u Start: 11-26-2024 End: 02-25-2025 CBC W Auto Differential panel - Blood COMPLETE BLOOD COUNT AND DIFFERENTIAL Lab Routine Essential hypertension, benign Expected: 11/26/2024 (Approximate), Expires: 02/25/2025 [facility] Comment on above: Expected: 11/26/2024 (Approximate), Expires: 02/25/2025 Start: 11-26-2024 End: 02-25-2025 Comprehensive metabolic 2000 panel - Serum or Plasma COMPREHENSIVE METABOLIC PANEL Lab Routine Essential hypertension, benign Hyperlipidemia, unspecified hyperlipidemia type Expected: 11/26/2024 (Approximate), Expires: 02/25/2025 [facility] Work Phone: Comment on above: Expected: 11/26/2024 (Approximate), Expires: 02/25/2025 Start: 11-26-2024 End: 02-25-2025 Lipid 1996 panel - Serum or Plasma LIPID PANEL BASIC Lab Routine Essential hypertension, benign Hyperlipidemia, unspecified hyperlipidemia type Expected: 11/26/2024 (Approximate), Expires: 02/25/2025 [facility] Comment on above: Expected: 11/26/2024 (Approximate), Expires: 02/25/2025 Start: 11-25-2024 RSV Vaccine (1 - 1-d ose 60+ series) RSV Vaccine (1 - 1-dose 60+ series) [facility] Comment on above: Postponed from 08/12 (Declined at this time) Start: 11-25-2024 RSV Vaccine (1 - 1-d ose 75+ series) RSV Vaccine (1 - 1-dose 75+ series) [facility] Comment on above: Postponed from 08/12 (Declined at this time) Start: 11-23-2024 [facility] Start: 11-21-2024 Influenza vaccination Influenza Vacc ine (#1) [facility] Start: 09-06-2024 Patient discharge [facility] Start: 09-02-2024 Admission procedure [facility] Start: 09-01-2024 End: 09-02-2024 [facility] Start: 09-01-2024 Blood culture Blood Culture [facility] Start: 09-01-2024 Application of intermittent pneumatic compression device [facility] Start: 09-01-2024 Fall prevention [facility] Start: 09-01-2024 Oxygen therapy [facility] Start: 09-01-2024 Provision of activit y privileges [facility] Start: 09-01-2024 Assessment of risk o f venous thromboembolism [facility] Start: 09-01-2024 Insertion of cathete r into peripheral vein [facility] Start: 09-01-2024 Providing care accor ding to standard [facility] Start: 09-01-2024 Referral to occupati onal therapist [facility] Start: 09-01-2024 Referral to service [facility] Start: 09-01-2024 [facility] Start: 09-01-2024 Following clinical pathway protocol [facility] Start: 09-01-2024 Admission procedure [facility] Start: 09-01-2024 Hospital admission, emergency, from emergency room, medical nature [facility] Start: 08-31-2024 End: 08-31-2024 Patient encounter procedure 08/31/2024 11:00 AM EDT Office Visit Geriatrics [address] [place] [address] Luciana Cisneros MD [address] [place], [place] [id number] 3 month f/u Geriatrics Comment on above: 3 month f/u Start: 2024 Anxiety Screening Anxiety Screening [facility] Start: 2024 Depression Screening Depression Scre ening [facility] Start: 07-08-2024 DIABETES SCREEN DIABETES SCREEN [facility] Start: 06-02-2024 Hepatitis B surface antibody level LDL Cholesterol [facility] Start: 06-01-2024 End: 06-01-2024 Patient encounter procedure 06/01/2024 3:00 PM EDT Office Visit Geriatrics [address] [facility] [place] [address] Luciana Cisneros MD [address] [facility] [place], [place] [id number] Follow up visit for MRI Geriatrics Comment on above: Follow up visit for MRI Start: 06-01-2024 Covid-19 Vaccine () Covid-19 Vaccine () [facility] Start: 05-30-2024 End: 05-30-2024 Patient encounter procedure 05/30/2024 11:20 AM EDT Office Visit [facility] [place] [address] [facility] [place] [address] Luciana Cisneros MD [address] [facility] [place] [address] Follow up visit for MRI [facility] [place] Comment on above: Follow up visit for MRI Start: 05-26-2024 End: 05-26-2024 Patient encounter procedure 05/26/2024 9:20 AM EST Office Visit [facility] [place] [address] [facility] [place] [address] Stas Mora MD [address] [facility] [place], [place] [address] 6 mo f/u [facility] [place] Comment on above: 6 mo f/u Start: 05-25-2024 End: 08-24-2024 CBC W Auto Differential panel - Blood COMPLETE BLOOD COUNT AND DIFFERENTIAL Lab Routine Abnormal CBC Expected: 05/25/2024 (Approximate), Expires: 08/24/2024 [facility] Comment on above: Expected: 05/25/2024 (Approximate), Expires: 08/24/2024 Start: 05-25-2024 End: 08-24-2024 Comprehensive metabolic 2000 panel - Serum or Plasma COMPREHENSIVE METABOLIC PANEL Lab Routine Essential hypertension, benign Hyperlipidemia, unspecified hyperlipidemia type Expected: 05/25/2024 (Approximate), Expires: 08/24/2024 [facility] Work Phone: Comment on above: Expected: 05/25/2024 (Approximate), Expires: 08/24/2024 Start: 05-25-2024 End: 08-24-2024 Lipid 1996 panel - Serum or Plasma LIPID PANEL BASIC Lab Routine Essential hypertension, benign Hyperlipidemia, unspecified hyperlipidemia type Expected: 05/25/2024 (Approximate), Expires: 08/24/2024 [facility] Comment on above: Expected: 05/25/2024 (Approximate), Expires: 08/24/2024 Start: 05-25-2024 End: 05-25-2024 ambulatory 05/25/2024 8:30 AM EST Results Only [facility] [address] [place] [address] [facility] Start: 05-23-2024 End: 05-23-2024 Patient encounter procedure 05/23/2024 2:30 PM EST Appointment RADIO MRI [facility] [address] [place] [address] Cognitive impairment, mild, 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] [facility] Comment on above: Cognitive impairment , mild, 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] Start: 04-29-2024 End: 04-29-2024 Patient encounter procedure 04/29/2024 3:40 PM EST Office Visit [facility] [place] [address] [place] [address] Stas Mora MD [address] [place] [address] memory issues,See TE [facility] [place] Comment on above: memory issues,See TE Start: 04-27-2024 End: 04-27-2024 Patient encounter procedure 04/27/2024 9:30 AM EST Office Visit Geriatrics [address] [facility] [place] [address] Luciana Cisneros MD [address] [place] [address] Dementia, unspecified dementia severity, unspecified dementia type, unspecified whether behavioral, psychotic, or mood disturbance or anxiety (HCC) [F03.90] Geriatrics Comment on above: Dementia, unspecifie d dementia severity, unspecified dementia type, unspecified whether behavioral, psychotic, or mood disturbance or anxiety (HCC) [F03.90] Start: 03-23-2024 Advance Directive Discussion Advance Directive Discussion [facility] Start: 03-23-2024 Medicare Advantage A nnual Wellness Visit Medicare Advantage Annual Wellness Visit [facility] Start: 03-13-2024 DIABETES SCREEN DIABETES SCREEN [facility] Start: 11-26-2023 End: 11-26-2023 Patient encounter procedure [facility] Comment on above: 6 month follow up 6 month follow up, jessica bashir, on aricept x 3 months Start: 11-22-2023 Covid-19 Vaccine ( season) Covid-19 Vaccine ( season) [facility] Start: 11-22-2023 Influenza vaccination Influenza Vacc ine (#1) [facility] Start: 09-15-2023 End: 09-15-2023 Patient encounter procedure 09/15/2023 8:40 AM EDT Office Visit [facility] [facility] [address] [place] [address] Stas Mora MD [address] [facility] [place] [address] leg swelling- both legs--See triage 09/14/2023. [facility] Comment on above: leg swelling- both l egs--See triage 09/14/2023. Start: 08-16-2023 Hepatitis B surface antibody level LDL CHOLESTEROL [facility] Start: 08-14-2023 End: 08-14-2023 Patient encounter procedure 08/14/2023 10:00 AM EDT Office Visit [facility] [place] [address] [place] [address] Stas Mora MD [address] [facility] [address] Memory Issues [facility] [place] Comment on above: Memory Issues Start: 06-04-2023 End: 09-03-2023 Ferritin [Mass/volume] in Serum or Plasma [facility] Work Phone: Comment on above: Expected: 06/04/2023 , Expires: 09/03/2023 Start: 06-04-2023 End: 09-03-2023 Iron and Iron binding capacity panel - Serum or Plasma [facility] Work Phone: Comment on above: Expected: 06/04/2023 , Expires: 09/03/2023 Start: 06-01-2023 End: 08-31-2023 CBC panel - Blood by Automated count CBC Lab Routine Paroxysmal atrial fibrillation (HCC) Essential hypertension, benign Expected: 06/01/2023 (Approximate), Expires: 08/31/2023 [facility] Work Phone: Comment on above: Expected: 06/01/2023 (Approximate), Expires: 08/31/2023 Start: 06-01-2023 End: 08-31-2023 Comprehensive metabolic 2000 panel - Serum or Plasma COMP METABOLIC PANEL Lab Routine Paroxysmal atrial fibrillation (HCC) Essential hypertension, benign Hyperlipidemia, unspecified hyperlipidemia type Expected: 06/01/2023 (Approximate), Expires: 08/31/2023 [facility] Work Phone: Comment on above: Expected: 06/01/2023 (Approximate), Expires: 08/31/2023 Start: 06-01-2023 End: 08-31-2023 Lipid 1996 panel - Serum or Plasma LIPID PANEL BASIC Lab Routine Paroxysmal atrial fibrillation (HCC) Essential hypertension, benign Hyperlipidemia, unspecified hyperlipidemia type Expected: 06/01/2023 (Approximate), Expires: 08/31/2023 [facility] Work Phone: Comment on above: Expected: 06/01/2023 (Approximate), Expires: 08/31/2023 Start: 05-13-2023 Covid-19 Vaccine () Covid-19 Vaccine () [facility] Start: 03-23-2023 Advance Directive Discussion Advance Directive Discussion [facility] Start: 03-23-2023 Behavioral Health Screening Behavioral Health Screening [facility] Start: 03-23-2023 Depression Assessment Depression Ass [facility][1]ment [facility] Start: 02-21-2023 Hepatitis B surface antibody level LDL CHOLESTEROL [facility] Start: 02-10-2023 [facility] Start: 12-06-2022 Hepatitis B surface antibody level LDL CHOLESTEROL [facility] Start: 11-21-2022 Covid-19 Vaccine () Covid-19 Vaccine () [facility] Start: 11-21-2022 Influenza vaccination [facility] Start: 09-05-2022 PNEUMOCOCCAL: 65+ (2 - PCV) PNEUMOCOCCAL: 65+ (2 - PCV) [facility] Comment on above: Postponed from 02/21 (Declined at this time) Start: 07-08-2022 Hepatitis B surface antibody level LDL CHOLESTEROL [facility] Start: 04-26-2022 COVID-19 VACCINE (6 - Pfizer series) COVID-19 VACCINE (6 - Pfizer series) [facility] Start: 03-23-2022 ADVANCE DIRECTIVE DISCUSSION ADVANCE DIRECTIVE DISCUSSION [facility] Start: 03-23-2022 DEPRESSION ASSESSMENT DEPRESSION ASS ESSMENT [facility] Start: 03-13-2022 Hepatitis B surface antibody level LDL CHOLESTEROL [facility] Start: 03-10-2022 End: 05-10-2022 CBC panel - Blood by Automated count CBC Lab Routine TIA (transient ischemic attack) Essential hypertension, benign Atherosclerosis 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, unspecified vessel or lesion type, unspecified whether [place] or transplanted heart Expected: 03/10/2022 (Approximate), Expires: 05/10/2022 [facility] Work Phone: Comment on above: Expected: 03/10/2022 (Approximate), Expires: 05/10/2022 Start: 03-10-2022 End: 05-10-2022 Comprehensive metabolic 2000 panel - Serum or Plasma COMP METABOLIC PANEL Lab Routine TIA (transient ischemic attack) Essential hypertension, benign Atherosclerosis 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, unspecified vessel or lesion type, unspecified whether [place] or transplanted heart Expected: 03/10/2022 (Approximate), Expires: 05/10/2022 [facility] Work Phone: Comment on above: Expected: 03/10/2022 (Approximate), Expires: 05/10/2022 Start: 03-10-2022 End: 05-10-2022 Lipid 1996 panel - Serum or Plasma LIPID PANEL BASIC Lab Routine TIA (transient ischemic attack) Essential hypertension, benign Atherosclerosis 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, unspecified vessel or lesion type, unspecified whether [place] or transplanted heart Expected: 03/10/2022 (Approximate), Expires: 05/10/2022 [facility] Work Phone: Comment on above: Expected: 03/10/2022 (Approximate), Expires: 05/10/2022 Start: 01-03-2022 End: 03-05-2022 Comprehensive metabolic 2000 panel - Serum or Plasma COMP METABOLIC PANEL Lab Routine Atherosclerosis 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, unspecified vessel or lesion type, unspecified whether [place] or transplanted heart Essential hypertension, benign Expected: 01/03/2022 (Approximate), Expires: 03/05/2022 [facility] Work Phone: Comment on above: Expected: 01/03/2022 (Approximate), Expires: 03/05/2022 Start: 01-03-2022 End: 03-05-2022 LIPID PANEL BASIC LIPID PANEL BASIC Lab Routine Atherosclerosis 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, unspecified vessel or lesion type, unspecified whether [place] or transplanted heart Essential hypertension, benign Expected: 01/03/2022 (Approximate), Expires: 03/05/2022 [facility] Work Phone: Comment on above: Expected: 01/03/2022 (Approximate), Expires: 03/05/2022 Start: 12-24-2021 Prothrombin time [facility] Work Phone: Start: 12-23-2021 Prothrombin time [facility] Work Phone: Start: 12-22-2021 Patient discharge [facility] Work Phone: Start: 12-21-2021 Assessment of risk o f venous thromboembolism [facility] Work Phone: Start: 12-21-2021 Cardiac monitoring [facility] Work Phone: Start: 12-21-2021 Catheterization of vein [facility] Work Phone: Start: 12-21-2021 Continuous pulse oximetry [facility] Work Phone: Start: 12-21-2021 Elevation of head of bed [facility] Work Phone: Start: 12-21-2021 Exercises [facility] Work Phone: Start: 12-21-[address] anned interventions [facility] Work Phone: Start: 12-21-2021 Insertion of cathete r into peripheral vein [facility] Work Phone: Start: 12-21-2021 Measuring intake and output [facility] Work Phone: Start: 12-21-2021 Notification of physician [facility] Work Phone: Start: 12-21-2021 Oxygen therapy [facility] Work Phone: Start: 12-21-2021 Providing care accor ding to standard [facility] Work Phone: Start: 12-21-2021 Provision of activit y privileges [facility] Work Phone: Start: 12-21-2021 Referral to occupati onal therapist [facility] Work Phone: Start: 12-21-2021 Referral to service [facility] Work Phone: Start: 12-21-2021 Tobacco use cessatio n education [facility] Work Phone: Start: 12-21-2021 US scan of thyroid Thyroid [facility] Work Phone: Start: 12-21-2021 [facility] Work Phone: Start: 12-21-2021 End: 12-21-2021 Following clinical pathway protocol [facility] Work Phone: Start: 12-21-2021 Verification routine [facility] Work Phone: Start: 12-21-2021 [facility] Start: 12-21-2021 CT of head without contrast STROKE Brain/Head without Cont [facility] Work Phone: Start: 12-21-2021 CT Unspecified body region WO contrast [facility] Work Phone: Start: 12-21-2021 Oxygen therapy [facility] Work Phone: Start: 12-21-2021 End: 12-22-2021 [facility] Work Phone: Start: 11-21-2021 Influenza vaccination INFLUENZA (#1) [facility] Start: 09-24-2021 COVID-19 VACCINE (5 - Booster for Pfizer series) COVID-19 VACCINE (5 - Booster for Pfizer series) [facility] Start: 08-30-2021 End: 10-30-2021 PT panel - Platelet poor plasma by Coagulation assay [facility] Work Phone: Comment on above: Expected: 08/30/2021 , Expires: 10/30/2021 Start: 07-08-2021 End: 09-07-2021 Comprehensive metabolic 2000 panel - Serum or Plasma [facility] Work Phone: Comment on above: Expected: 07/08/2021 (Approximate), Expires: 09/07/2021 Start: 07-08-2021 End: 09-07-[address] [facility] Work Phone: Comment on above: Expected: 07/08/2021 (Approximate), Expires: 09/07/2021 Start: 04-27-2021 COVID-19 VACCINE (4 - Booster for Pfizer series) COVID-19 VACCINE (4 - Booster for Pfizer series) [facility] Start: 03-23-2021 ADVANCE DIRECTIVE DISCUSSION ADVANCE DIRECTIVE DISCUSSION [facility] Start: 03-23-2021 DEPRESSION ASSESSMENT DEPRESSION ASS ESSMENT [facility] Start: 02-21-2009 Pneumococcal Vaccine : 65+ (2 - PCV) Pneumococcal Vaccine: 65+ (2 - PCV) [facility] Start: 02-21-2009 PNEUMOCOCCAL: 65+ (2 - PCV) PNEUMOCOCCAL: 65+ (2 - PCV) [facility] Start: 02-23-2008 Urine microalbumin profile DTAP,TDAP,TD (1 - Tdap) [facility] Start: 1995 RSV Vaccine (1 - 1-d ose 60+ series) RSV Vaccine (1 - 1-dose 60+ series) [facility] Start: 08-12-1985 SHINGRIX VACCINE (1 of 2) VALDES GRIX VACCINE (1 of 2) [facility] Anion gap in Serum o r Plasma [facility] BUN/Creatinine ratio [facility] Calcium [Mass/volume ] in Serum or Plasma [facility] Carbon dioxide, tota l [Moles/volume] in Central venous blood [facility] Creatinine [Mass/vol ume] in Serum or Plasma [facility] Glucose [Mass/volume ] in Serum or Plasma [facility] Hemoglobin.gastroint estin al.lower [Presence] in Stool by Immunoassay FECAL OCCULT BLOOD TEST Lab Routine Abnormal CBC 06/04/2023 2:[address] [facility] Work Phone: INR in Blood by Coagulation assay [facility] Measurement of renal function [facility] End: 05-27-2025 MR Brain WO contrast MRI BRAIN W QUANT WO IVCON Radiology Routine Cognitive impairment, mild, so stated 1 Occurrences starting 04/27/2024 until 05/27/2025 [facility] Work Phone: Comment on above: 1 Occurrences starti ng 04/27/2024 until 05/27/2025 End: 05-27-2025 MR Unspecified body region 3D post processing MRI 3D BRAIN QUANT Radiology Routine Cognitive impairment, mild, so stated 1 Occurrences starting 04/27/2024 until 05/27/2025 [facility] Comment on above: 1 Occurrences starti ng 04/27/2024 until 05/27/2025 End: 03-17-2024 Mri brain brain stem w/o contrast material MRI BRAIN WO IVCON Radiology STAT Cerebral infarction, unspecified mechanism (HCC) 1 Occurrences starting 02/16/2023 until 03/17/2024 [facility] Work Phone: Comment on above: 1 Occurrences starti ng 02/16/2023 until 03/17/2024 Mri brain brain stem w/o contrast material MRI BRAIN WO IVCON Radiology STAT Cerebral infarction, unspecified mechanism (HCC) 02/17/2023 8:[address] 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 Work Phone: Comment on above: Once per week for 99 Occurrences starting 09/13/2021 until 09/13/2022 PT panel - Platelet poor plasma by Coagulation assay PROTHROMBIN TIME/PT Lab Routine longterm current use of anticoagulant Encounter for monitoring Coumadin therapy 09/13/2021 8:[address] 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 Work Phone: Comment on above: 24 Occurrences start ing 12/24/2023 until 12/23/2024 Serum chloride measurement [facility] Sodium measurement [facility] Urea nitrogen [Mass/volume] in Serum or Plasma [facility] End: 01-25-2023 Us soft tissue head & neck real time imge docm US THYROID/PARATHYROID Radiology Routine Thyroid nodule 1 Occurrences starting 12/26/2021 until 01/25/2023 [facility] Work Phone: Comment on above: 1 Occurrences starti ng 12/26/2021 until 01/25/2023 [facility] Immunizations Immunization Date Immunization Notes Care Provider Fa sam 12-03-2023 influenza virus vacc ine, unspecified formulation Stas Mora MD Work Phone: [facility] 01-10-2023 influenza (HD-IIV4) vaccine, age 65+ yr, high dose, quadrivalent, PF (FLUZONE HIGH-DOSE) [facility] 01-10-2023 influenza virus vacc ine, unspecified formulation [facility] 12-26-2021 influenza, high-dose , quadrivalent vaccine (FLUZONE HIGH DOSE QUADRIVALENT) Stas Mora MD Work Phone: [facility] 12-26-2021 influenza virus vacc ine, unspecified formulation Senia Alan [facility] 02-27-2021 tetanus toxoid, redu natividad diphtheria toxoid, and acellular pertussis vaccine, adsorbed Stas Mora MD Work Phone: [facility] 02-27-2021 zoster vaccine recombinant Stas Mora MD Work Phone: [facility] 12-25-2020 Covid (Pfizer) Dr. Stas gonzales Work Phone: [facility] 12-10-2020 influenza (HD-IIV4) vaccine, age 65+ yr, high dose, quadrivalent, PF (FLUZONE HIGH-DOSE) Coretta Jalloh [facility] 12-10-2020 influenza, high dose seasonal, preservative-free Stas Mora MD Work Phone: [facility] 09-17-2020 zoster vaccine recombinant Stas Moar MD Work Phone: [facility] 05-09-2020 Covid (Pfizer) Dr. Stas gonzales Work Phone: [facility] 04-18-2020 Covid (Pfizer) Dr. Stas gonzales Work Phone: [facility] 12-24-2016 influenza, high dose seasonal, preservative-free Stas Mora MD Work Phone: [facility] 12-22-2015 Influenza virus vaccine [facility] 12-22-2015 influenza, seasonal, injectable, preservative free Stas Mora MD Work Phone: [facility] Work Phone: 01-30-2014 influenza, high dose seasonal, preservative-free Stas Mora MD Work Phone: [facility] Work Phone: 01-24-2013 influenza virus vacc ine, unspecified formulation Stas Mora MD Work Phone: [facility] 02-22-2008 pneumococcal polysaccharide vaccine, 23 valent Stas Mora MD Work Phone: [facility] Work Phone: 02-22-2008 tetanus and diphther ia toxoids, adsorbed, preservative free, for adult use (2 Lf of tetanus toxoid and 2 Lf of diphtheria toxoid) Stas Mora MD Work Phone: [facility] Work Phone: Payers Date Payer Category Payer Self-pay [id number] 2022 Unknown [id number] 2016 Medicare [employer] [place] [id number] 2016-Present [phone] [address] [place] [address] O [id number] 2016 Medicare [employer] [place] [id number] 2016-Present [phone] [address] [place] [address] [facility] [id number] 2016 [place] Care[place] [id number] 2016 Medicare [id number] 1935 Unknown [id number]. 2.627 1935 Unknown [id number] .[id number]. 2.627 Unknown VA AUTH REQUIR ED SEE NOTE [id number] Unknown [place] AUTH REQUIR ED SEE NOTE . [id number] Unknown [id number]. 2.462 Unknown [id number] .1.042432.3.579. 2.462 Unknown [id number] 2.16.840.1.276523.3.579. 2.462 Unknown [id number] 2.16.840.1.729999.3.579. 2.462 Unknown [id number] 2.16.840.1.525679.3.579. 2.462 Unknown [id number] 2.16.840.1.883983.3.579. 2.462 Unknown [id number] 2.16.840.1.805825.3.579. 2.462 Unknown [id number] 2.16.840.1.718343.3.579. 2.462 Unknown [id number] 2.840.1.401692.3.579. 2.462 Unknown [id number] 2.16.840.1.179473.3.579. 2.462 Unknown [id number] 2.840.1.824956.3.579. 2.462 Unknown [id number] 2.16840.1.789103.3.579. 2.462 Unknown [id number] 2.840.1.552834.3.579. 2.462 Unknown [id number] 2.16.840.1.404068.3.579. 2.462 Unknown [id number] 2.16840.1.220616.3.579. 2.462 Unknown [id number] 2.16840.1.940162.3.579. 2.462 Unknown [id number] 2.16840.1.435356.3.579. 2.462 Unknown [id number] 2.16.840.1.774656.3.579. 2.462 Unknown [id number] 2.16.840.1.239308.3.579. 2.462 Unknown [id number] 2.16.840.1.362937.3.579. 2.462 Unknown [id number] 2.16840.1.489214.3.579. 2.462 Unknown [id number] 2.16.840.1.994580.3.579. 2.462 Unknown [id number] 2.16.840.1.074936.3.579. 2.462 Unknown [id number] 2.16.840.1.665566.3.579. 2.462 Unknown [id number] 2.16.840.1.977417.3.579. 2.462 Unknown [id number] 2.16.840.1.602653.3.579. 2.462 Unknown [id number] 2.16.840.1.491125.3.579. 2.462 Unknown [id number] 2.16.840.1.462231.3.579. 2.462 Unknown [id number] 2.16840.1.888878.3.579. 2.462 Unknown [id number] 2.840.1.540520.3.579. 2.462 Social History Date Type Detail Facility Start: 05-04-2017 End: 09-01-2024 Tobacco smoking status NHIS Ex-smoker [facility] Start: 02-15-2021 End: 07-28-2024 Alcohol intake Current non-drinker of alcohol (finding) [facility] Start: 08-26-2020 End: 08-29-2021 History SDOH Alcohol Frequency 2 [facility] Start: 08-26-2020 End: 08-29-2021 History SDOH Alcohol Std Drinks 1 [facility] Start: 08-26-2020 End: 08-29-2021 History SDOH Social Connections Yazdanism 3 [facility] Start: 08-26-2020 End: 08-29-2021 History SDOH Social Connections Living 5 [facility] Start: 08-26-2020 History SDOH Physical Activity MPS 6 [facility] Start: 08-26-2020 Education 12 [facility] Start: 1935 Sex Assigned At Male [facility] Start: 02-11-2020 End: 12-26-2021 Exposure to SARS-CoV-2 (event) Not sure [facility] History of tobacco use Current smoker [facility] Start: 05-04-2017 End: 12-26-2021 Tobacco use and exposure Smokeless tobacco non-user [facility] Start: 12-21-2021 End: 02-10-2023 Tobacco smoking status NHIS Unknown if ever smoked [facility] Start: 12-22-2021 Non-smoker [facility] Start: 12-26-2021 Tobacco Comment 30 yaers ago [facility] Start: 02-28-2020 End: 08-29-2021 History of Social function [facility] Start: 02-28-2020 End: 08-29-2021 Social connection and isolation panel [facility] Do you belong to any clubs or organizations such as congregation groups, unions, fraternal or athletic groups, or school groups? No [facility] Are you now , , , , never or living with a partner? [facility] How often to you hav e a drink containing alcohol? Monthly or less [facility] How many standard dr inks containing alcohol do you have on a typical day? 1 or 2 [facility] How often do you hav e 6 or more drinks on 1 occasion? Never [facility] How hard is it for y ou to pay for the very basics like food, housing, medical care, and heating Not hard at all [facility] Do you feel stress - tense, restless, nervous, or anxious, or unable to sleep at night because your mind is troubled all the time - these days [OSQ] Not at all [facility] (I/We) worried wheth er (my/our) food would run out before (I/we) got money to buy more. Never true [facility] Start: 08-26-2020 Gender identity Identifies as male gender (finding) [facility] Start: 08-26-2020 Sexual orientation Heterosexual (finding) [facility] Sex Assigned At Sex [facility] Are you now , , , , never or living with a partner? [facility] How often to you hav e a drink containing alcohol? 2-4 times a month [facility] Goals Date Patient Goal Desired Activity /State Functional Status Date Assessment Result Facility 09-06-2024 Functional status Ambulates [facility] Work Phone: 07-26-2024 Total score [AUDIT-C] 1 07/27/19 6:26 PM EDT User, [email or web address] [facility] 07-26-2024 Within the last year , have you been humiliated or emotionally abused in other ways by your partner or ex-partner? No 07/26/2024 6:26 PM EDT User, [email or web address] No [facility] 07-26-2024 Within the last year , have you been afraid of your partner or ex-partner? No 07/26/2024 6:26 PM EDT User, Mychart No [facility] 07-26-2024 Within the last year , have you been raped or forced to have any kind of sexual activity by your partner or ex-partner? No 07/26/2024 6:26 PM EDT User, [email or web address] No [facility] 07-26-2024 Within the last year , have you been kicked, hit, slapped, or otherwise physically hurt by your partner or ex-partner? No 07/26/2024 6:26 PM EDT User, [email or web address] No [facility] 07-26-2024 How often to you hav e a drink containing alcohol? Monthly or less 07/26/2024 6:26 PM EDT User, Mychart Monthly or less [facility] 07-26-[address] inks containing alcohol do you have on a typical day? 1 or 2 07/26/2024 6:26 PM EDT User, Mychart 1 or 2 [facility] 07-26-2024 How often do you hav e 6 or more drinks on 1 occasion? Never 07/26/2024 6:26 PM EDT User, Mychart Never [facility] 11-17-2022 Functional Status Up ad tara [facility] 11-17-2022 Functional Status Identified as high risk, Fall ID band on, Room located near nursing station [facility] 12-22-2021 Functional status Ambulates;Chair [facility] Work Phone: 07-02-2016 Are you deaf, or do you have serious difficulty hearing No 07/02/2016 2:52 PM EDT Anita Zhang, DO No [facility] Work Phone: 07-02-2016 Are you blind, or do you have serious difficulty seeing, even when wearing glasses No 07/02/2016 2:52 PM EDT Anita Zhang, DO No [facility] 07-02-2016 Do you have serious difficulty walking or climbing stairs No 07/02/2016 2:52 PM EDT Anita Zhang, DO No [facility] 07-02-2016 Do you have difficul ty dressing or bathing No 07/02/2016 2:52 PM EDT Anita Zhang, DO No [facility] 07-02-2016 Because of a physica l, mental, or emotional condition, do you have difficulty doing errands alone such as visiting a physician's office or shopping No 07/02/2016 2:52 PM EDT Anita Zhang, DO No [facility] Mental Status Date Assessment Result Facility 09-06-2024 Cognitive function Voice/Name [facility] Work Phone: 09-05-2024 Cognitive function Appropriate;Cooperativ e [facility] Work Phone: 02-10-2023 Cognitive function Level Of Cons ciousness Awake;Alert;Appropriate;Fol lows Commands [facility] [facility] Work Phone: 11-17-2022 Mental Status Orientation Oriented x 4 [facility] 11-17-2022 Mental Status [facility] 12-22-2021 Cognitive function Voice/Name [facility] Work Phone: 12-21-2021 Cognitive function Voice/Name [facility] Work Phone: 07-02-2016 Because of a physica l, mental, or emotional condition, do you have serious difficulty concentrating, remembering, or making decisions No 07/02/2016 2:52 PM EDT Anita Zhang, DO No [facility] Clinical Notes 03-12-2020 to 09-21-2024 Telephone [...] in there for two weeks. Please advise [facility] 09-21-2024 Miscellaneous Notes Formattin g of this note might be different from the original. [facility]. Maria Guadalupe states that he has been in there for two weeks. Please advise documented in this encounter [facility] 09-06-2024 Consult note [facility] 09-06-2024 Consult note Note Date/Time September 06, 2024 4:37pm [facility] Medical Records Department [address] [place] [address] Counseling Note - Pharmacy 09/06/24 1143 MR#: [id number] Acct: [id number] Name: ROBY FLORES Rep #:[id number] : 1935 89 From: Isabelle Summers PCP: Dr. Stas Mora MD Status:AD M IN Location: [facility] BQ988-8 [place] Med Reconciliation Pharmacy Service has performed discharge [...] signed by Isabelle Summers> Date _ Isabelle Skinner Signature (if applicable): Date CC: ~ Signed [facility] Work Phone: [phone]) 464-687606-17-2025 Discharge summary Author Navid [facility] Note Date/Time September 06, 2024 11:[address] [place] [address] Health System Medical Records Department [address] [place] [address] Discharge Summary 09/06/24 1109 MR#: [id number] Acct: [id number] Name: ROBY FLORES Rep #:[id number] : 1935 89 From: Navid Trejo PCP: Dr. Stas Mora MD Status:AD M IN Location: [facility] ZW646-3 Providers Date of Admission: 09/02/24 Date of [...] The daughter is the healthcare power of commercial real estate attorney. #History of dementia: On rivastigmine #Dyslipidemia: [...] (Auto) 66.8, Lymph % (Auto) 16.4 L, [place] % (Auto) 9.1, Eos % (Auto) 6.3 [...] in before D/C Order can be placed): Jail Facility Charges/Coding Visit Charges Inpatient E&M: 70058 Disch Hosp >30min 09/06/24 1114 <Electronically signed by Navid Dominguez MD> Cosigner Signature (if applicable): CC: Dr. Stas Mora MD; Dr. Navid Dominguez MD~ Signed [facility] Work Phone: [phone]) 390-683006-17-2025 Discharge summary Author Navid Dominguez [facility] Note Date/Time September 06, 2024 11:0 9am [facility] Health System Medical Records Department [address] [place] [address] Transfer to [facility] MR#: [id number] Acct: [id number] Name: ROBY FLORES Rep #:[id number] : 1935 89 From: Navid Trejo PCP: Dr. Stas Mora MD Status:AD M IN Certification of patient admission REQUIRED AT TIME OF ADMISSION. I CERTIFY THAT POST-HOSPITAL ECF SERVICES ARE REQUIRED TO BE GIVEN ON AN IN-PATIENT BASIS BECAUSE OF THE ABOVE NAMED PATIENT'S NEED FOR HALF-WAY CARE ON A CONTINUING BASIS FOR THE CONDITION(S) FOR WHICH HE/SHE WAS RECEIVING IN-PATIENT HOSPITAL SERVICES PRIOR TO HIS/HER TRANSFER TO THE [facility]. 09/06/24 1109<Electronically signed by Navid Dominguez MD> [...] explained to the [facility] 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 #History of dementia: On rivastigmine #Dyslipidemia: [...] liberalized regular diet with consistency/texture as per STORY TELLER. Will continue 120mL ensure plus HP 4 [...] in before D/C Order can be placed): Jail Facility 09/06/24 1109 <Electronically signed by Navid Dominguez MD> Cosigner Signature (if applicable): CC: Dr. Stas Mora MD; Dr. Kathy Wells MD ~ [facility] Work Phone: 1(233) 513-180406-17-2025 Discharge summary [facility] System Medical Records Department [address] [place] [address] Discharge Summary 09/06/24 1109 MR#: [id number] Acct: [id number] Name: ROBY FLORES Rep #:[id number] : 1935 89 From: Navid Trejo PCP: Dr. Stas Mora MD Status:AD M IN Location: [facility] XV184-8 Providers Date of Admission: 09/02/24 Date of [...] [facility] to the [facility]: INR 2.4. Hold warfarin today [...] The daughter is the healthcare power of commercial real estate attorney. #History of dementia: On rivastigmine #Dyslipidemia: [...] (Auto) 66.8, Lymph % (Auto) 16.4 L, [place] % (Auto) 9.1, Eos % (Auto) 6.3 [...] in before D/C Order can be placed): Jail Facility Charges/Coding Visit Charges Inpatient E&M: 09188 Disch Hosp >30min 09/06/24 1114 Cosigner Signature (if applicable): CC: Dr. Stas Mora MD; Dr. Navid Dominguez MD~ Signed [facility]06-17-2025 Discharge summary [facility] System Medical Records Department [address] [place] [address] Transfer to [facility] MR#: [id number] Acct: [id number] Name: ROBY FLORES Rep #:[id number] : 1935 89 From: Navid Trejo PCP: Dr. Stas Mora MD Status:AD M IN Certification of patient admission REQUIRED AT TIME OF ADMISSION. I CERTIFY THAT POST-HOSPITAL ECF SERVICES ARE REQUIRED TO BE GIVEN ON AN IN-PATIENT BASIS BECAUSE OF THE ABOVE NAMED PATIENT'S NEED FOR HALF-WAY CARE ON A CONTINUING BASIS FOR THE CONDITION(S) FOR WHICH HE/SHE WAS RECEIVING IN-PATIENT HOSPITAL SERVICES PRIOR TO HIS/HER TRANSFER TO THE [facility]. 09/06/24 1109 Diet Diet Order/Speech Therapy: INPATIENT [...] The daughter is the healthcare power of commercial real estate attorney. #History of dementia: On rivastigmine #Dyslipidemia: [...] liberalized regular diet with consistency/texture as per STORY TELLER. Will continue 120mL ensure plus HP 4 [...] in before D/C Order can be placed): Jail Facility 09/06/24 1109 Cosigner Signature (if applicable): CC: Dr. Stas Mora MD; Dr. Kathy Wells MD ~ [facility]06-17-2025 [facility] Medical Records Department [address] [place] [address] Discharge Summary 09/06/24 1109 MR#: [id number] Acct: [id number] Name: ROBY FLORES Rep #: [id number] : 1935 89 From: Navid Dominguez MD PCP: Dr. Stas Mora MD Status:ADM [facility] Date of Admission: 09/02/24 Date of [...] The daughter is the healthcare power of commercial real estate attorney. #History of dementia: On rivastigmine #Dyslipidemia: [...] / Lab / Microbiol (more content not included)...[facility] 09-05-2024 Progress note Author Navid Dominguez [facility] Note Date/Time September 05, 2024 4:15 pm [facility] System Medical Records Department [address] [place] [address] Progress Note - Hospitalist 09/05/24 1608 MR#: [id number] Acct: [id number] Name: ROBY FLORES Rep #:[id number] : 1935 89 From: Navid Trejo PCP: Dr. Stas Mora MD Status:AD M IN Location: [facility] ZP391-5 Reason for Visit Reason for Visit: Diagnoses [...] Clarity Clear, Urine pH 7.0, Ur Specific [place] 1.005, Urine Protein 15 H, Urine Glucose [...] 77.2 H, Lymph % (Auto) 9.8 L, [place] % (Auto) 7.9, Eos % (Auto) 4.0, [...] The daughter is the healthcare power of commercial real estate attorney. #History of dementia: On rivastigmine #Dyslipidemia: On statin #Benign essential hypertension: On lisinopril. DVT prophylaxis: * Resume Coumadin today. INR 1.8. Daughter still thinking about that she wants him to continue otherwise. Code status: DNRCCA no intubation * Disposition: Awaiting placement. PT OT on board. Charges/Coding Visit Charges Inpatient E&M: 30402 Subs Hosp L2 09/05/24 1615 <Electronically signed by Navid Dominguez MD> Cosigner Signature (if applicable): CC: ~ Signed [facility] Work Phone: [phone]) 958-807806-16-2025 Progress note [facility] System Medical Records Department [address] [place] [address] Progress Note - Hospitalist 09/05/24 1608 MR#: [id number] Acct: [id number] Name: ROBY FLORES Rep #:[id number] : 1935 89 From: Navid Trejo PCP: Dr. Stas Mora MD Status:AD M IN Location: [facility] SN491-5 Reason for Visit Reason for Visit: Diagnoses [...] Clarity Clear, Urine pH 7.0, Ur Specific [place] 1.005, Urine Protein 15 H, Urine Glucose [...] 77.2 H, Lymph % (Auto) 9.8 L, [place] % (Auto) 7.9, Eos % (Auto) 4.0, [...] explained to the patient and his [facility]. 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 #History of dementia: On rivastigmine #Dyslipidemia: On statin #Benign essential hypertension: On lisinopril. DVT prophylaxis: * Resume Coumadin today. INR 1.8. Daughter still thinking about that she wants him to continue otherwise. Code status: DNRCCA no intubation * Disposition: Awaiting placement. PT OT on board. Charges/Coding Visit Charges Inpatient E&M: 34993 Subs Hosp L2 09/05/24 1615 Cosigner Signature (if applicable): CC: ~ Signed [facility]06-15-2025 Progress note Author Kathy Wells [facility] Note Date/Time September 04, 2024 3:37 pm [facility] System Medical Records Department [address] [place] [address] Progress Note 09/04/24 1412 MR#: [id number] Acct: [id number] Name: ROBY FLORES Rep #:[id number] : 1935 89 From: Kathy Wells MD PCP: Dr. Stas Mora MD Status:AD M IN Location: [facility] RB888-0 Subjective Subjective Patient seen and examined. He [...] 78.0 H, Lymph % (Auto) 7.8 L, [place] % (Auto) 7.7, Eos % (Auto) 5.3 [...] The daughter is the healthcare power of commercial real estate attorney. * In light of patient's confusion [...] on board. Charges/Coding Visit Charges Inpatient E&M: 02512 Subs Hosp L2 09/04/24 1537 <Electronically signed by Kathy Wells MD> Kathy Wells MD Cosigner Signature (if applicable): CC: ~ Signed [facility] Work Phone: 1(910) 871-831006-15-2025 Progress note [facility] System Medical Records Department [address] [place] [address] Progress Note 09/04/24 1412 MR#: [id number] Acct: [id number] Name: ROBY FLORES Radha Rep #:[id number] : 1935 89 From: Kathy Wells MD PCP: Dr. Stas Mora MD Status:AD M IN Location: [facility] EW374-1 Subjective Subjective Patient seen and examined. He [...] 78.0 H, Lymph % (Auto) 7.8 L, [place] % (Auto) 7.7, Eos % (Auto) 5.3 [...] The daughter is the healthcare power of commercial real estate attorney. * In light of patient's confusion [...] on board. Charges/Coding Visit Charges Inpatient E&M: 78627 Subs Hosp L2 09/04/24 1537 Kathy Wells MD Cosigner Signature (if applicable): CC: ~ Signed [facility]06-14-2025 Progress note Author Kathy Wells [facility] Note Date/Time September 03, 2024 6:29 pm [facility] System Medical Records Department [address] [place] [address] Progress Note 09/03/24 1135 MR#: [id number] Acct: [id number] Name: ROBY FLORES Rep #:[id number] : 1935 89 From: Kathy Wells MD PCP: Dr. Stas Mora MD Status:AD M IN Location: [facility] YH883-3 Subjective Subjective Patient seen and examined. He [...] 08:13 09/03/24 08:13 09/03/24 08:13 09/03/24 08:09/03/24 08:09/02/24 15:02 Oxygen Flow Rate (L/min) [...] 83.4 H, Lymph % (Auto) 6.7 L, [place] % (Auto) 6.0, Eos % (Auto) 2.8, [...] The daughter is the healthcare power of commercial real estate attorney. * In light of patient's confusion [...] on board. Charges/Coding Visit Charges Inpatient E&M: 65674 Subs Hosp L2 09/03/24 2431 <Electronically signed by Kathy Wells MD> Kathy Wells MD Cosigner Signature (if applicable): CC: ~ Signed [facility] Work Phone: 1(687) 194-525306-14-2025 Progress note [facility] System Medical Records Department [address] [place] [address] Progress Note 09/03/24 1135 MR#: [id number] Acct: [id number] Name: ROBY FLORES Rep #:[id number] : 1935 89 From: Kathy Wells MD PCP: Dr. Stas Mora MD Status:AD M IN Location: [facility] EB485-8 Subjective Subjective Patient seen and examined. He [...] 83.4 H, Lymph % (Auto) 6.7 L, [place] % (Auto) 6.0, Eos % (Auto) 2.8, [...] The daughter is the healthcare power of commercial real estate attorney. * In light of patient's confusion [...] on board. Charges/Coding Visit Charges Inpatient E&M: 12181 Subs Hosp L2 09/03/24 2340 Kathy Wells MD Cosigner Signature (if applicable): CC: ~ Signed [facility]06-14-2025 Consult note Author Spike De La Cruz [facility] Note Date/Time September 03, 2024 3:49 pm [facility] Medical Records Department [address] [place] [address] Pharmacokinetic/Renal -Consult 09/03/24 1548 MR#: [id number] Acct: [id number] Name: ROBY FLORES Rep #:[id number] : 1935 89 From: Spike [facility] PCP: Dr. Stas Mora MD Status:AD M IN Y Location: [place] [address]-1 Consult Antibiotic Management Pharmacy has been consulted [...] Labs: Trough: Vancomycin (09/04/24 at 2130) 09/03/24 9629 <Electronically signed by Spike Angelo [facility]> Date _ Spike De La Cruz [facility] Cosigner Signature (if applicable): Date CC: ~ Signed [facility] Work Phone: [phone]) 674-270306-14-2025 Consult note [facility] Medical Records Department [address] [place] [address] Pharmacokinetic/Renal -Consult 09/03/24 1548 MR#: [id number] Acct: [id number] Name: ROBY FLORES Rep #:[id number] : 1935 89 From: Spike [facility] PCP: Dr. Stas Mora MD Status:AD M IN Y Location: [place] [address] Consult Antibiotic Management Pharmacy has been consulted [...] Trough: Vancomycin (09/04/24 at 2130) 09/03/24 1549 ing [facility]> Date _ [facility] Cosigner Signature (if applicable): Date CC: ~ Signed [facility]06-13-2025 Progress note Author Kathy [facility] Note Date/Time September 02, 2024 6:45 pm [facility] System Medical Records Department [address] [place] [address] Progress Note 09/02/24 1404 MR#: [id number] Acct: [id number] Name: ROBY FLORES Rep #:[id number] : 1935 89 From: Kathy Wells MD PCP: Dr. Stas Mora MD Status:AD M IN Location: [facility] WX624-7 Subjective Subjective Patient seen and examined. He [...] (Auto) 87.9 H, Lymph %(Auto) 3.8 L, [place] % (Auto) 4.8, Eos % (Auto) 2.2, Baso % (Auto) 0.6, Absolute Neuts (auto) 12.1 H, Absolute Lymphs (auto) 0.52 L, Nucleated RBC % 0, Sodium 135, Potassium 4.3, Chloride 105, Carbon Dioxide 14.2 L, Anion Gap 15, BUN 14, Creatinine 0.75, Estim Creat Clear Calc 64.10, Est GFR (MDRD) Non-Af 86, BUN/Creatinine Ratio 18.9, Glucose 105 H, Calcium 8.5 06/13/25 08:25: PT 22.1 H, INR 1.9 Micro: [...] evidence of intracranial bleed. * [facility] Hydrate gently with IV fluids. * PT [...] The daughter is the healthcare power of commercial real estate attorney. * In light of patient's confusion [...] intubation * Charges/Coding Visit Charges Inpatient E&M: 55372 Subs Hosp L2 09/02/24 9865 <Electronically signed by Kathy Wells MD> Kathy Wells MD Cosigner Signature (if applicable): CC: ~ Signed [facility] Work Phone: [phone]) 499-952006-13-2025 Progress note [facility] System Medical Records Department [address] [place] [address] Progress Note 09/02/24 1404 MR#: [id number] Acct: [id number] Name: ROBY FLORES Rep #:[id number] : 1935 89 From: Kathy Wells MD PCP: Dr. Stas Mora MD Status:AD M IN Location: [facility] CU937-7 Subjective Subjective Patient seen and examined. He [...] (Auto) 87.9 H, Lymph %(Auto) 3.8 L, [place] % (Auto) 4.8, Eos % (Auto) 2.2, [...] evidence of intracranial bleed. * [facility]. Hydrate gently with IV fluids. * PT [...] The daughter is the healthcare power of commercial real estate attorney. * In light of patient's confusion [...] intubation * Charges/Coding Visit Charges Inpatient E&M: 59697 Subs Hosp L2 09/02/24 7000 Kathy Wells MD Cosigner Signature (if applicable): CC: ~ Signed [facility]06-13-2025 Evaluation note* Diagnosis Onset Date Resolution Status Admit Date Adult failure to thrive acute [facility] 2024 12:49pm Chronic anticoagulation acute [facility] 2024 12:49pm Contusion of hip acute August 12:49pm Fall acute September 02 12:49pm History of atrial fibrillation acute September 02, 2024 12:49pm History of dementia acute September 02, 2024 12:49pm History of TIAs acute August 12:49pm Unable to ambulate acute August 212024 12:49pm [facility] Work Phone: 1(600) 149-912606-13-2025 Evaluation note* Diagnosis Onset Date Resolution Status Admit Date Chronic anticoagulation acute [facility] 2024 12:49pm Contusion of hip acute August 12:49pm Fall acute September 02 12:49pm History of atrial fibrillation acute September 02, 2024 12:49pm History of TIAs acute August 12:49pm Unable to ambulate acute August 212024 12:49pm Adult failure to thrive inactive [facility] 2024 12:49pm History of dementia inactive September 02, 2024 12:49pm [facility] Work Phone: 1(653) 329-389206-12-2025 Consult note Author Zachary Lubin [facility] Note Date/Time September 01, 2024 9:15 pm [facility] Medical Records Department [address] [place] [address] Pharmacokinetic/Renal -Consult 09/01/242113 MR#: [id number] Acct: [id number] Name: ROBY FLORES Rep #:[id number] : 1935 89 From: Zachary Serrano od PCP: Dr. Stas Mora MD Status:AD M [place] Y Location: [place] [address] Consult Antibiotic Management Pharmacy has been consulted [...] signed by Zachary burton> Date _ Zachary Trejo Amee Cosigner Signature (if applicable): Date _ CC: ~ Signed [facility] Work Phone: [phone]) 123-765806-12-2025 Progress note Author Marta Black [facility] Note Date/Time September 01, 2024 7:55 pm [facility] System Medical Records Department [address] [place] [address] Progress Note - Hospitalist 09/01/241952 MR#: [id number] Acct: [id number] Name: ROBY FLORES Rep #:[id number] : 1935 89 From: Marta Black DO PCP: Dr. Stas Mora MD Status:AD M [facility] Location: [place] [address] Hospitalist Note Called regarding Mr. Flores having [...] of antibiotics. 09/01/241954 <Electronically signed by Marta Wayne DO> Cosigner Signature (if applicable): CC: ~ Signed [facility] Work Phone: 1([phone]) 278-366506-12-2025 Consult note [facility] Medical Records Department [address] [place] [address] Pharmacokinetic/Renal -Consult 09/01/242113 MR#: [id number] Acct: [id number] Name: ROBY FLORES Rep #:[id number] : 1935 89 From: Zachary Serrano od PCP: Dr. Stas Mora MD Status:AD M [place] Y Location: [place] [address] Consult Antibiotic Management Pharmacy has been consulted [...] (if applicable): Date _ CC: ~ Signed [facility]06-12-2025 History and physical note Author Kathy Wells [facility] Note Date/Time September 01, 2024 6:04 pm [facility] System Medical Records Department [address] [place] [address] H&P Exam - Hospitalist 09/01/24 1018 MR#: [id number] Acct: [id number] Name: ROBY FLORES Rep #:[id number] : 1935 89 From: Kathy Wells MD PCP: Dr. Stas Mora MD Status:AD M [facility] Location: [facility] AF868-8 HPI - General General Date of Admission: [...] in the ED were BP of 180/89, MD of 87, RR of 18 and temp [...] debility and weakness due to mechanical fall. [facility] Medical History Chronic anticoagulation TIA [...] 87.5 H, Lymph % (Auto) 4.8 L, [place] % (Auto) 5.7, Eos % (Auto) 1.2, [...] Clarity Clear, Urine pH 8.0, Ur Specific [place] 1.010, Urine Protein 15 H, Urine Glucose [...] No fracture or dislocation present. Reading Location: [facility] 09/01/24 09:05 IMPRESSION: Cerebral atrophy. Mucosal thickening of the ethmoid sinuses as well as opacification of the left maxillary sinus. Reading Location: [facility] Chest X-Ray 09/01/24 09:25 IMPRESSION: No acute abnormality is seen. Reading Location: [facility] Assessment & Plan Assessment/Plan (1) Adult [...] evidence of intracranial bleed. * [facility]drate gently with IV fluids. * PT [...] The daughter is the healthcare power of commercial real estate attorney. * In light of patient's confusion [...] be DNR CCA no intubation. * Total xwih-ne-dmxy time 16 minutes. Charges/Coding Visit Charges Inpatient E&M: 87657 Init Hosp L3 Procedures Hospitalists Procedures: 42240 Advncd Care Plan 30 Min 09/01/24 1804 <Electronically signed by Kathy Wells MD> Cosigner Signature (if applicable): CC: Dr. Stas Mora MD; Dr. Kathy Wells MD~ Signed [facility] Work Phone: 1(758) 625-252906-12-2025 Progress note [facility] Medical Records Department [address] [place] [address] Progress Note - Hospitalist 09/01/241952 MR#: [id number] Acct: [id number] Name: ROBY FLORES E Rep #:[id number] : 1935 89 From: Marta Black DO PCP: Dr. Stas Mora MD Status:AD M [facility] Location: [place] [address]-1 Hospitalist Note Called regarding Mr. Flores having [...] Cosigner Signature (if applicable): CC: ~ Signed [facility]06-12-2025 History and physical note [facility] Medical Records Department [address] [place] [address] H&P Exam - Hospitalist 09/01/24 1018 MR#: [id number] Acct: [id number] Name: ROBY FLORES E Rep #:[id number] : 1935 89 From: Kathy Wells MD PCP: Dr. Stas Mora MD Status:AD M [place] Location: [facility] YP904-4 HPI - General General Date of Admission: [...] in the ED were BP of 180/89, MD of 87, RR of 18 and temp [...] debility and weakness due to mechanical fall. [facility] Medical History Chronic anticoagulation TIA [...] 87.5 H, Lymph % (Auto) 4.8 L, [place] % (Auto) 5.7, Eos % (Auto) 1.2, [...] Clarity Clear, Urine pH 8.0, Ur Specific [place] 1.010, Urine Protein 15 H, Urine Glucose [...] No fracture or dislocation present. Reading Location: [facility] 09/01/24 09:05 IMPRESSION: Cerebral atrophy. Mucosal thickening of the ethmoid sinuses as well as opacification of the left maxillary sinus. Reading Location: [facility] Chest X-Ray 09/01/24 09:25 IMPRESSION: No acute abnormality is seen. Reading Location: [facility] Assessment & Plan Assessment/Plan (1) Adult [...] The daughter is the healthcare power of commercial real estate attorney. * In light of patient's confusion [...] be DNR CCA no intubation. * Total iced-bv-ksul time 16 minutes. Charges/Coding Visit Charges Inpatient E&M: 38488 Init Hosp L3 Procedures Hospitalists Procedures: 67224 Advncd Care Plan 30 Min 09/01/24 1804 Cosigner Signature (if applicable): CC: Dr. Stas Mora MD; Dr. Kathy Wells MD~ Signed [facility]06-12-2025 Telephone encounter Note* Telephone Encounter - Haydee Oliveros LPN - 09/01/2024 2:49 PM EDT Mychart message sent [facility]06-12-2025 Miscellaneous Notes* Telephone Encounter - Haydee [...] affordable alvarado using Good Rx coupons. At [facility] (his current pharmacy), he can get a 1 mo supply for ~$30. If he switches the prescription to [facility], he can get a 1 mo supply for ~$20. See coupons below. Rivastigmine patches are also available via [employer]. It appears the cheapest option is through [facility], in which he can get 30 patches for $52. Coupon also below. Sending to PCP to review and provide patient with coupon card information. Russell Aguayo PharmD, BCPS Primary Care Clinical Pharmacist Memantine coupon at [facility] Memantine coupon at [facility] Rivastigmine patches coupon at [facility] documented in this encounterOhiohealth [facility]06-12-2025 Telephone encounter Note * Telephone Encounter - Luciana Cisneros MD - 09/01/2024 1:26 PM EDT Thanks Russell, Staff please let patient know what the pharmacist as opined on. Regards, Luciana Cisneros MD [facility]06-12-2025 Discharge summary Author Inderjit Gillespie [facility] Note Date/Time September 01, 2024 10:2 5am [facility] System Medical Records Department [address] [place] [address] Emergency Department Summary 09/01/24 MR#: [id number] Acct: [id number] Name: ROBY FLORES Rep #:[id number] : [...] Prior similar symptoms: No Recent Illness/Hospitalization: [facility] Medical History Chronic anticoagulation TIA [...] shoulders elbows and wrist. He has normal tracer clerk strength. Neurologically he is awake alert. Answering [...] 87.5 H Lymph % (Auto) 4.8 L [place] % (Auto) 5.7 Eos % (Auto) 1.2 [...] Clarity Clear Urine pH 8.0 Ur Specific [place] 1.010 Urine Protein 15 H Urine Glucose [...] No fracture or dislocation present. Reading Location: [facility]--[address] 09/01/24 09:05 IMPRESSION: Cerebral atrophy. Mucosal thickening of the ethmoid sinuses as well as opacification of the left maxillary sinus. Reading Location: [facility]--1 Chest X-Ray 09/01/24 09:25 IMPRESSION: No acute abnormality is seen. Reading Location: [facility]--1 Chest x-ray, 2 views, AP and [...] failure to thrive Disposition Disposition: Acute Care [facility] What to do if you have Problems For any increased pain, shortness of breath, bleeding, nausea or vomiting, chestpain, or any unexpected problems, contact your Primary Care Provider. Call [facility] ([phone]) or report to the closest Emergency Room. Call 911 if necessary. 09/01/24 1025 <Electronically signed by Inderjit Gillespie MD> Cosigner Signature (if applicable): CC: Dr. Stas Mora MD ~ Signed [facility] Work Phone: 1(144) 392-754606-12-2025 Discharge summary [facility] Medical Records Department [address] [place] [address] Emergency Department Summary 09/01/24 MR#: [id number] Acct: [id number] Name: ROBY FLORES Rep #:[id number] : [...] tablet 10 mg PO DAILY #30 tabs 10 05/14 Unknown Rx memantine 10 mg tablet [...] shoulders elbows and wrist. He has normal tracer clerk strength. Neurologically he is awake alert. Answering [...] 87.5 H Lymph % (Auto) 4.8 L [place] % (Auto) 5.7 Eos % (Auto) 1.2 [...] Clarity Clear Urine pH 8.0 Ur Specific [place] 1.010 Urine Protein 15 H Urine Glucose [...] No fracture or dislocation present. Reading Location: [facility]--[address] 09/01/24 09:05 IMPRESSION: Cerebral atrophy. Mucosal thickening of the ethmoid sinuses as well as opacification of the left maxillary sinus. Reading Location: [facility]--1 Chest X-Ray 09/01/24 09:25 IMPRESSION: No acute abnormality is seen. Reading Location: [facility]--1 Chest x-ray, 2 views, AP and [...] to thrive Disposition Disposition: Acute Care Hospital [facility] What to do if you have Problems For any increased pain, shortness of breath, bleeding, nausea or vomiting, chestpain, or any unexpected problems, contact your Primary Care Provider. Call [facility] ([phone]) or report tothe closest Emergency Room. Call 911 if necessary. 09/01/24 1025 Cosigner Signature (if applicable): CC: Dr. Stas Mora MD ~ Signed [facility]06-12-2025 Telephone encounter Note* Telephone Encounter - Russell [...] affordable alvarado using Good Rx coupons. At [facility] (his current pharmacy), he can get a 1 mo supply for ~$30. If he switches the prescription to [facility], he can get a 1 mo supply for ~$20. See coupons below. Rivastigmine patches are also available via [employer]. It appears the cheapest option is through [facility], in which he can get 30 patches for $52. Coupon also below. Sending to PCP to review and provide patient with coupon card information. Russell Aguayo, Saúl, [facility] Primary Care Clinical Pharmacist Memantine coupon at [facility] Memantine coupon at [facility] Rivastigmine patches coupon at [facility] Work Phone: 1(242) 411-882606-12-2025 Radiology Diagnostic study note [facility] Imaging Services [address] [place], [place] [address] Brain/Head without Contrast MR#: [id number] Acct: [id number] Name: ROBY FLORES Rep #: : 1935 M [id number] From: Laith Chavez MD PCP: Dr. Stas Mora MD Status: RE G ER Study:Brain/Head without Contrast Date of Exa m: 09/01/24 Exam# [id number] Ordering Dr: Earlene Gillespie MD PROCEDURE: BRAIN/HEAD [...] of the left maxillary sinus. [facility] CC: Dr. Inderjit Gillespie MD; Dr. Stas Mora MD ~ Resistance Welding Machine Operator: Signed [facility]06-12-2025 Radiology Diagnostic study note [facility] Imaging Services [address] [place], [place] [address] Chest 1 View (Portable) MR#: [id number] Acct: [id number] Name: ROBY FLORES Rep #: [id number] : 1935 M 89 From: Laith Chavez MD PCP: Dr. Stas Mora MD Status: RE ER Study:Chest 1 View (Portable) Date of Exam: 09/01/24 Exam# [id number] Ordering Dr: Earlene Gillespie MD PROCEDURE: CHEST [...] No acute abnormality is seen. Reading Location: [place] [address] CC: Dr. Inderjit Gillespie MD; Dr. Stas Mora MD ~ Resistance Welding Machine Operator: Signed [facility]06-12-2025 Radiology Diagnostic study note [facility] Imaging Services [address] [place] [address] [id number] Hips B/L min 2 views w/ Pelvis MR#: [id number] Acct: [id number] Name: ROBY FLORES Rep #: [id number] : 1935 89 From: Laith Chavez MD PCP: Dr. Stas Mora MD Status: [facility] ER Study:Hips B/L min 2 views w/ Pelvis Date of Exam: 09/01/24 Exam# [id number] Ordering Dr: Earlene Gillespie MD PROCEDURE: HIPS [...] No fracture or dislocation present. Reading Location: [place] [address] CC: Dr. Inderjit Gillespie MD; Dr. Stas Mora MD ~ Resistance Welding Machine Operator: Signed [facility]06-11-2025 NoteHNO ID: [id number] Author: LUCIANA CISNEORS MD Service: ? Author Type: Physician Type: [...] and believing his brother, who lives in [place], was present. 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 Additionally, [...] excuse any unintended typographical errors. Recording using [employer] software for draft documentation of the visit was discussed with the patient/authorized senior outside sales representative; all questions welcomed and answered. Patient/authorized senior outside sales representative agreed to proceed Luciana Cisneros [facility]06-11-2025 History of Present illness Narrative* Luciana Cisneros [...] and believing his brother, who lives in [place], was present. 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 Additionally, [...] any unintended typographical errors. Recording using ambient [employer] software for draft documentation of the visit was discussed with the patient/authorized senior outside sales representative; all questions welcomed and answered. 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 documented in this encounterOhiohealth [facility]ide [facility] Hospital06-11-2025 Instructions* Patient Instructions* Luciana Cisneros MD [...] if your symptoms change. documented in this encounterOhiohealth [facility]ide [facility] Hospital06-01-2025 Evaluation note* Diagnosis Onset Date Resolution Status Admit Date Adult failure to thrive acute J une 2024 10:24am Chronic anticoagulation acute J 2024 10:24am Contusion of hip acute August 10:24am Fall acute September 01 10:24am History of atrial fibrillation acute September 01, 2024 10:24am History of dementia acute September 01, 2024 10:24am History of TIAs acute August 10:24am Unable to ambulate acute August 212024 10:24am [facility] Work Phone: [phone]) 214-110505-14-2025 Telephone encounter Note* Telephone Encounter - Coretta Jalloh RPh - 08/03/2024 11:20 AM EDT I have reviewed the below recommendations and agree with plan. Coretta Jalloh PharmD [facility]05-14-2025 Miscellaneous Notes* Telephone Encounter - Coretta Jalloh RPh - 08/03/2024 11:20 AM EDT I have reviewed the below recommendations and agree with plan. Coretta Jalloh PharmD * Telephone Encounter - Adrian HuangCoverPage PublishingElana Berry - 08/03/2024 10:57 AM EDT PATIENT [...] 08/31/2024 Caregiver verbalized understanding. Will route to [facility] as FYI. 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 Roby Flores is a 88 year old [...] ALLERGIES No Known Allergies Indication for Warfarin: longterm current use of anticoagulant Paroxysmal atrial fibrillation [...] Pharmacy Anticoagulation Clinic Pharmacy Anticoagulation Clinic Pager: [phone]. 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 documented in this encounterOhiohealth Riverside [facility] Hospital10-14-2024 Telephone encounter Note * Telephone Encounter - Jenna Fitzpatrick APRN.CNP - 01/04/2024 10:41 AM EDT The following approved medication requests have been transmitted electronically. Requested Prescriptions Signed Prescriptions Disp Refills warfarin (COUMADIN) 3 mg tablet 30 tablet 11 Sig: Take 1 tablet by mouth daily as directed. Authorizing Provider: JENNA FITZPATRICK APRN.CNP [facility]10-14-2024 Miscellaneous Notes* Telephone Encounter - Jenna [...] sent to [facility]. Heis taking 3 mg daily and has 1 mg tablets and 2.5 mg tablets. He keeps running out of the 1 mg every 10 days and pharmacy asking for another rx. Pending rx needs completed. Please advise documented in this encounterOhiohealth Riverside [facility] Hospital10-14-2024 Telephone encounter Note * Telephone Encounter - Oliva Westbrook LPN - 01/04/2024 9:33 AM EDT Patient significant other Maria Guadalupe calling asking for a warfarin 3 mg rx to be sent to [facility]. Heis taking 3 mg daily and has 1 mg tablets and 2.5 mg tablets. He keeps running out of the 1 mg every 10 days and pharmacy asking for another rx. Pending rx needs completed. Please advise [facility]10-03-2024 Telephone encounter Note* Telephone Encounter - MikecemElise, [facility] - 12/24/2023 2:29 PM EDT [facility] Ambulatory Pharmacy Anticoagulation Clinic Anticoagulation Episode Summary Anticoagulation Care Providers Provider Role Specialty Phone number Stas Mora MD Referring Family Medicine [phone] Roby Flores is a 88 year old [...] ALLERGIES No Known Allergies Indication for Warfarin: longterm current use of anticoagulant Paroxysmal atrial fibrillation [...] Pharmacy Anticoagulation Clinic Pharmacy Anticoagulation Clinic Pager: [phone]. 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 documented in this encounterOhiohealth Riverside [facility] Hospital09-19-2024 Telephone encounter Note * Telephone Encounter - Elise Paredes RPh - 12/10/2023 2:13 PM EDT [facility] Ambulatory Pharmacy Anticoagulation Clinic Anticoagulation Episode Summary Anticoagulation Care Providers Provider Role Specialty Phone number Stas Mora MD Referring Family Medicine [phone] Roby Flores is a 88 year old [...] ALLERGIES No Known Allergies Indication for Warfarin: longterm current use of anticoagulant Paroxysmal atrial fibrillation (hcc) Anticoagulation Episode Summary Current INR goal: 2.0-3.0 Assessment: INR result of 1.9 is SUBtherapeutic due to: unknown cause - did not speak to patient Plan: Current Warfarin Dosing As of 12/10/2023 Full warfarin instructions: 2.5 mg every Sun; 3 mg all other days Left voice message for Gabby at [phone] (home) Advised patient to increase total weekly regimen Next lab INR check scheduled on 12/24/2023 Elise Paredes RPh Clinical Pharmacist, Pharmacy Anticoagulation Clinic Pharmacy Anticoagulation Clinic Pager: [phone]. [facility]09-19-2024 Miscellaneous Notes* Telephone Encounter - Elise Paredes RPh - 12/10/2023 2:13 PM EDT [facility] Ambulatory Pharmacy Anticoagulation Clinic Anticoagulation Episode Summary Anticoagulation Care Providers Provider Role Specialty Phone number Stas Mora MD Referring Family Medicine [phone] Roby Flores is a 88 year old [...] ALLERGIES No Known Allergies Indication for Warfarin: longterm current use of anticoagulant Paroxysmal atrial fibrillation (hcc) Anticoagulation Episode Summary Current INR goal: 2.0-3.0 Assessment: INR result of 1.9 is SUBtherapeutic due to: unknown cause - did not speak to patient Plan: Current Warfarin Dosing As of 12/10/2023 Full warfarin instructions: 2.5 mg every Sun; 3 mg all other days Left voice message for Gabby at [phone] (home) Advised patient to increase total weekly regimen Next lab INR check scheduled on 12/24/2023 Elise Paredes RPh Clinical Pharmacist, Pharmacy Anticoagulation Clinic Pharmacy Anticoagulation Clinic Pager: [phone]. 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 Elise Paredes [facility] Clinical Pharmacist, Pharmacy Anticoagulation Clinic Pharmacy Anticoagulation Clinic Pager: [phone]. * Telephone Encounter - Satish HuangSupervisor Carbon Paper CoatingParmjit Berry - 11/26/2023 4:26 PM EDT Patient's spouse called regarding message. Patient typically takes warfarin in the morning but did not take any today. Patient's spouse doesn't understand why its low all the sudden. Denies changes in medication/ diet or missed doses. Call transferred to [facility] Parmjit Covarrubias, Concert Singer (planner/scheduler) Pharmacy Anticoagulation Clinic * Telephone Encounter - Elise Paredes [facility] - 11/26/2023 4:21 PM EDT [facility] Ambulatory Pharmacy Anticoagulation Clinic Anticoagulation Episode Summary Anticoagulation Care Providers Provider Role Specialty Phone number Stas Mora MD Referring Family Medicine [phone] Roby Flores is a 88 year old [...] ALLERGIES No Known Allergies Indication for Warfarin: longterm current use of anticoagulant Paroxysmal atrial fibrillation [...] call PAC to discuss further Elise Paredes [facility] Clinical Pharmacist, Pharmacy Anticoagulation Clinic Pharmacy Anticoagulation Clinic Pager: [phone]. documented in this encounterOhiohealth Riverside [facility] Hospital09-05-2024 Telephone encounter Note * Telephone Encounter - Satish HuangSupervisor Carbon Paper CoatingParmjit Berry - 11/26/2023 4:26 PM EDT Patient's spouse called regarding message. Patient typically takes warfarin in the morning but did not take any today. Patient's spouse doesn't understand why its low all the sudden. Denies changes in medication/ diet or missed doses. Call transferred to [facility] Parmjit Covarrubias Concert Singer (planner/scheduler) Pharmacy Anticoagulation Clinic [facility]09-05-2024 Telephone encounter Note* Telephone Encounter - Elise Paredes [facility] - 11/26/2023 4:21 PM EDT [facility] Ambulatory Pharmacy Anticoagulation Clinic Anticoagulation Episode Summary Anticoagulation Care Providers Provider Role Specialty Phone number Stas Mora MD Referring Family Medicine [phone] Roby Flores is a 88 year old [...] ALLERGIES No Known Allergies Indication for Warfarin: longterm current use of anticoagulant Paroxysmal atrial fibrillation [...] Pharmacy Anticoagulation Clinic Pharmacy Anticoagulation Clinic Pager: [phone]. [facility]09-05-2024 History of Present illness Narrative* Stas [...] Coronary atherosclerosis of unspecified type of vessel, chevak or graft Comment: Coronary artery disease No [...] Past Histories independently gathered by the clinical program support assistant and the remaining scribed note [...] AM. 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 documented in this encounterOhiohealth [facility]ide [facility]08-26-2024 Telephone encounter Note * Telephone Encounter - Elvis Kearney APRN.CNP - 11/16/2023 9:39 AM EDT The following approved medication requests have been transmitted electronically. Requested Prescriptions Pending Prescriptions Disp Refills warfarin (COUMADIN) 1 mg tablet 30 tablet 5 Sig: Take 1 tablet by mouth once daily. Elvis Kearney APRN.CNP [facility]08-26-2024 Miscellaneous Notes* Telephone Encounter - Elvis [...] 16, 2023 9:00 AM documented in this encounterOhiohealth Riverside [facility]08-26-2024 Telephone encounter Note * Telephone Encounter [...] Shahid MA November 16, 2023 9:06 AM [facility]08-26-2024 Telephone encounter Note* Telephone Encounter - [...] Keke Rinaldi November 16, 2023 9:00 AM [facility]07-24-2024 Telephone encounter Note* Telephone Encounter - Coretta Jalloh RPh - 10/14/2023 4:21 PM EDT [facility] Ambulatory Pharmacy Anticoagulation Clinic Anticoagulation Episode Summary Anticoagulation Care Providers Provider Role Specialty Phone number Stas Mora MD Referring Family Medicine [phone] Roby Flores is a 88 year old [...] ALLERGIES No Known Allergies 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 documented in this encounterOhiohealth [facility]06-26-2024 Telephone encounter Note * Telephone Encounter - Colleen Sommer RPh - 09/16/2023 11:15 AM EDT [facility] Ambulatory Pharmacy Anticoagulation Clinic Anticoagulation Episode Summary Anticoagulation Care Providers Provider Role Specialty Phone number Stas Mora MD Referring Family Medicine [phone] Roby Flores is a 88 year old [...] Pharmacy Anticoagulation Clinic Pharmacy Anticoagulation Clinic Pager: [phone]. [facility]06-26-2024 Miscellaneous Notes* Telephone Encounter - Colleen Sommer RPh - 09/16/2023 11:15 AM EDT [facility] Ambulatory Pharmacy Anticoagulation Clinic Anticoagulation Episode Summary Anticoagulation Care Providers Provider Role Specialty Phone number Stas Mora MD Referring Family Medicine [phone] Roby Flores is a 88 year old [...] Pharmacy Anticoagulation Clinic Pharmacy Anticoagulation Clinic Pager: [phone]. documented in this encounterOhiohealth Riverside [facility]06-25-2024 Instructions* Patient Instructions* Rosie Cruz MA - 09/15/2023 8:48 AM EDT Starting Lasix (Furosemide) 20 mg once daily as needed. You can use the medication on days where swelling is increased. Elevate legs through out the day to help with swelling. Decrease sodium in diet. documented in this encounterOhiohealth [facility]ide [facility]06-25-2024 History of Present illness Narrative* Stas [...] Coronary atherosclerosis of unspecified type of vessel, chevak or graft Coronary artery disease Other and [...] Never done Covid-19 Vaccine(2022- season) due on 05/13/2023 LDL Cholesterol due [...] Past Histories independently gathered by the clinical program support assistant and the remaining scribed note [...] AM. Rosie Cruz MA documented in this encounterOhiohealth [facility]06-24-2024 Telephone encounter Note * Telephone Encounter [...] difficulty breathing Protocols used: Leg Swelling and [id number] [facility]06-24-2024 Miscellaneous Notes* Telephone Encounter - Marian [...] difficulty breathing Protocols used: Leg Swelling and [id number] * Telephone Encounter - Elana Valdes RN - 09/14/2023 2:52 PM EDT Called and left a voicemail for the Patient and on the Pts girlfriends phone to have the Pt call back and ask for a nurse to receive the providers message. We need more information about his bilateral leg swelling that he was scheduled for tomorrow. Elana Valdes RN documented in this encounterOhiohealth Riverside [facility]06-24-2024 Telephone encounter Note * Telephone Encounter - Elana Valdes RN - 09/14/2023 2:52 PM EDT Called and left a voicemail for the Patient and on the Pts girlfriends phone to have the Pt call back and ask for a nurse to receive the providers message. We need more information about his bilateral leg swelling that he was scheduled for tomorrow. Elana Valdes, RN [facility]06-12-2024 Telephone encounter Note* Telephone Encounter - Coretta Jalloh, [facility] - 09/02/2023 3:08 PM EDT [facility] Ambulatory Pharmacy Anticoagulation Clinic Anticoagulation Episode Summary Anticoagulation Care Providers Provider Role Specialty Phone number Stas Mora MD Referring Family Medicine [phone] Roby Flores is a 88 year old [...] ALLERGIES No Known Allergies Indication for Warfarin: longterm current use of anticoagulant Paroxysmal atrial fibrillation [...] Pharmacy Anticoagulation Clinic Pharmacy Anticoagulation Clinic Pager: [phone]. [facility]06-12-2024 Miscellaneous Notes* Telephone Encounter - Coretta Jalloh RPh - 09/02/2023 3:08 PM EDT [facility] Ambulatory Pharmacy Anticoagulation Clinic Anticoagulation Episode Summary Anticoagulation Care Providers Provider Role Specialty Phone number Stas Mora MD Referring Family Medicine [phone] Roby Flores is a 88 year old [...] ALLERGIES No Known Allergies Indication for Warfarin: longterm current use of anticoagulant Paroxysmal atrial fibrillation [...] Pharmacy Anticoagulation Clinic Pharmacy Anticoagulation Clinic Pager: [phone]. 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 [facility]06-05-2024 Miscellaneous Notes* Telephone Encounter - Coretta Jalloh RPh - 08/26/2023 5:03 PM EDT [facility] Ambulatory Pharmacy Anticoagulation Clinic Anticoagulation Episode Summary Anticoagulation Care Providers Provider Role Specialty Phone number Stas Mora MD Referring Family Medicine [phone] Roby Flores is a 88 year old [...] ALLERGIES No Known Allergies Indication for Warfarin: longterm current use of anticoagulant Paroxysmal atrial fibrillation [...] Pharmacy Anticoagulation Clinic Pharmacy Anticoagulation Clinic Pager: [phone]. documented in this encounterOhiohealth [facility]ide [facility]05-29-2024 Telephone encounter Note * Telephone Encounter - Coretta Jalloh RPh - 08/19/2023 5:09 PM EDT [facility] Ambulatory Pharmacy Anticoagulation Clinic Anticoagulation Episode Summary Anticoagulation Care Providers Provider Role Specialty Phone number Stas Mora MD Referring Family Medicine [phone] Roby Flores is a 88 year old [...] Pharmacy Anticoagulation Clinic Pharmacy Anticoagulation Clinic Pager: [phone]. [facility]05-29-2024 Miscellaneous Notes* Telephone Encounter - Coretta Jalloh RPh - 08/19/2023 5:09 PM EDT [facility] Ambulatory Pharmacy Anticoagulation Clinic Anticoagulation Episode Summary Anticoagulation Care Providers Provider Role Specialty Phone number Stas Mora MD Referring Family Medicine [phone] Roby Flores is a 88 year old [...] Pharmacy Anticoagulation Clinic Pharmacy Anticoagulation Clinic Pager: [phone]. documented in this encounterOhiohealth Riverside [facility] Hospital05-24-2024 History of Present illness Narrative* Elderbrock, Stas D, MD - 08/14/2023 10:00 AM EDT Chief [...] thinks he is being sued by a congregation and thathe was given a letter about it, doesn't know who the fleecer is or where the congregation is. states this is not true. He was looking for his brother who lives out of state, thought he was still staying with them, however he has not been up to [place] since Jan. No hallucinations. Is not leaving [...] Coronary atherosclerosis of unspecified type of vessel, chevak or graft Coronary artery disease Other and [...] done Behavioral Health Screening Never done Covid-19 Vaccine(2022- season) due on 05/13/2023 LDL Cholesterol due [...] Past Histories independently gathered by the clinical program support assistant and the remaining scribed note [...] AM. 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 [facility]05-22-2024 Miscellaneous Notes* Telephone Encounter - Coretta Jalloh RPh - 08/12/2023 4:27 PM EDT [facility] Ambulatory Pharmacy Anticoagulation Clinic Anticoagulation Episode Summary Anticoagulation Care Providers Provider Role Specialty Phone number Stas Mora MD Referring Family Medicine [phone] Roby Flores is a 87 year old [...] ALLERGIES No Known Allergies Indication for Warfarin: longterm current use of anticoagulant Paroxysmal atrial fibrillation [...] Pharmacy Anticoagulation Clinic Pharmacy Anticoagulation Clinic Pager: [phone]. documented in this encounterOhiohealth [facility]05-15-2024 Telephone encounter Note * Telephone Encounter - Coretta Jalloh RPh - 08/05/2023 4:41 PM EDT [facility] Ambulatory Pharmacy Anticoagulation Clinic Anticoagulation Episode Summary Anticoagulation Care Providers Provider Role Specialty Phone number Stas Mora MD Referring Family Medicine [phone] Roby Flores is a 87 year old [...] ALLERGIES No Known Allergies Indication for Warfarin: longterm current use of anticoagulant Paroxysmal atrial fibrillation [...] Pharmacy Anticoagulation Clinic Pharmacy Anticoagulation Clinic Pager: [phone]. 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 Elena Lopez [facility] Clinical Pharmacist, Pharmacy Anticoagulation Clinic Pharmacy Anticoagulation Clinic Pager: [phone]. documented in this encounterOhiohealth [facility]05-01-2024 Telephone encounter Note * Telephone Encounter - Coretta Jalloh RP - 07/22/2023 4:40 PM EDT [facility] Ambulatory Pharmacy Anticoagulation Clinic Anticoagulation Episode Summary Anticoagulation Care Providers Provider Role Specialty Phone number Stas Mora MD Referring Family Medicine [phone] Roby Flores is a 87 year old [...] ALLERGIES No Known Allergies Indication for Warfarin: longterm current use of anticoagulant Paroxysmal atrial fibrillation [...] Pharmacy Anticoagulation Clinic Pharmacy Anticoagulation Clinic Pager: [phone]. 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 Coretta Jalloh [facility] Clinical Pharmacist, Pharmacy Anticoagulation Clinic Pharmacy Anticoagulation Clinic Pager: [phone]. [facility]04-24-2024 Miscellaneous Notes* Telephone Encounter - Coretta Jalloh RPh - 07/15/2023 3:18 PM EDT [facility] Ambulatory Pharmacy Anticoagulation Clinic Anticoagulation Episode Summary Anticoagulation Care Providers Provider Role Specialty Phone number Stas Mora MD Referring Family Medicine [phone] Roby Flores is a 87 year old [...] ALLERGIES No Known Allergies Indication for Warfarin: longterm current use of anticoagulant Paroxysmal atrial fibrillation [...] Pharmacy Anticoagulation Clinic Pharmacy Anticoagulation Clinic Pager: [phone]. documented in this encounterOhiohealth [facility]04-17-2024 Miscellaneous Notes* Telephone Encounter - Coretta Jalloh RPh - 07/08/2023 4:36 PM EDT [facility] Ambulatory Pharmacy Anticoagulation Clinic Anticoagulation Episode Summary Anticoagulation Care Providers Provider Role Specialty Phone number Stas Mora MD Referring Family Medicine [phone] Roby Flores is a 87 year old [...] ALLERGIES No Known Allergies Indication for Warfarin: longterm current use of anticoagulant Paroxysmal atrial fibrillation [...] Pharmacy Anticoagulation Clinic Pharmacy Anticoagulation Clinic Pager: [phone]. 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 documented in this encounterOhiohealth Riverside [facility]04-04-2024 Telephone encounter Note * Telephone Encounter - Adrian (Supervisor [employer])Elana - 06/25/2023 5:14 PM EDT Images from [...] remains on Remote TM list. Elana Campbell (Supervisor [employer]) [facility]04-04-2024 Miscellaneous Notes* Telephone Encounter - Adrian ([employer])Elana - 06/25/2023 5:14 PM EDT Images from [...] remains on Remote TM list. Elana Campbell ([employer]) * Telephone Encounter - Stas Mora MD - 06/25/2023 4:44 PM EDT It looks like my office became involved because the on-call doctor was called with his elevated INR. I would prefer he stay with the pharmacy for his routine monitoring. Stas Mora MD * Telephone Encounter - Adrian ([employer])Elana - 06/25/2023 4:03 PM EDT Pharm Phone [...] this time Please advise. Elana Campbell CPhT (Concert Singer) Pharmacy Anticoagulation Clinic documented in this encounterOhiohealth Riverside [facility]04-04-2024 Telephone encounter Note * Telephone Encounter - Stas Mora MD - 06/25/2023 4:44 PM EDT It looks like my office became involved because the on-call doctor was called with his elevated INR. I would prefer he stay with the pharmacy for his routine monitoring. Stas Mora MD [facility]04-04-2024 Telephone encounter Note* Telephone Encounter - Adrian HuangSupervisor Carbon Paper CoatingElana Berry - 06/25/2023 4:03 PM EDT Pharm [...] this time Please advise. Elana Campbell CPhT (Concert Singer) Pharmacy Anticoagulation Clinic [facility]04-03-2024 Miscellaneous Notes* Telephone Encounter - Jason [...] with VKA drugs, such as warfarin, the [place] [employer] 2012 Guideline recommends [...] Chest 2012, 141:7S-47S Avel RA et al. [facility] 2017, 70: 252-289 Confirmed that pt is taking 1 mg daily. No changes to diet, medications, missed or extra doses, etc. Keke Tsang MA documented in this encounterOhiohealth Riverside [facility]03-22-2024 Miscellaneous Notes* Telephone Encounter - Marta [...] no Rosie Cruz Ma documented in this encounterOhiohealth Riverside [facility]03-18-2024 Miscellaneous Notes* Telephone Encounter - Keke [...] What was his previous dosing for Coumadin? Jnoathan Reagan DO * Telephone Encounter - Marta Palacio MA - 06/08/2023 3:00 PM EDT Last INR: PT INR 3.2 06/08/2023 Current dose of coumadin is: Pt has been holding Coumadin over the weekend. Last date of dose change: 06/05/23. Previous INR (date and result): 06/05/23 INR: 6.9 Additional Clinical Information or narrative: no documented in this encounterOhiohealth Riverside [facility]03-15-2024 Miscellaneous Notes* Telephone Encounter - Halina Alfaro LPN - 06/05/2023 10:17 AM EDT Patient daughter notified of results, verbalizes understanding of instructions. Pt is to hold coumadin Sat and Sun. and Get PT/INR on Thursday. Halina Alfaro LPN * Telephone Encounter - Oliva Westbrook LPN - 06/05/2023 10:05 AM EDT Phoned Maria Guadalupe back was going over notes from Dr Bell [...] went over notes below from Jenna Fitzpatrick CUTTER HEAD SHARPENER. She said no change in his diet, [...] without answer. INR was 6.9. Jenna Fitzpatrick APRN.ATTORNEY LAWYER documented in this encounterOhiohealth Riverside [facility]03-15-2024 Miscellaneous Notes* Telephone Encounter - Marta Palacio MA - 06/05/2023 10:15 AM EDT See phone note 06/05/23 with Jenna Fitzpatrick. Marta Palacio MA * Telephone Encounter - Jasmin Bell MD - 06/04/2023 7:59 PM EDT Been trying to call patient at numbers give and goes straight to . Sending [employer] message in case will see that sooner. After multiple attempts, I called [facility]. They cannot call the patient but if the patient calls them, they will conference call with me. documented in this encounterOhiohealth Riverside [facility]03-15-2024 Miscellaneous Notes* Telephone Encounter - Marta [...] message on daughter Anabella's mobile. Sent a [employer] message too. Called [facility] and the will conference call me if patient calls them. documented in this encounterOhiohealth Riverside [facility]03-14-2024 Miscellaneous Notes* Telephone Encounter - Hortencia Winston RN - 06/04/2023 8:[address] Bell has left messages for the patient to call back regarding a critical lab. documented in this encounterOhiohealth Riverside [facility]03-14-2024 Miscellaneous Notes* Telephone Encounter - Minda [...] Telephone Encounter - Jenna Fitzpatrick APRN.SHEMAR - 06/04/2023 11:37 AM EDT Can you [...] has any questions. Thank you. 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 documented in this encounterOhiohealth Riverside Methodist Hospital03-11-2024 History of Present illness Narrative* Stas [...] Coronary atherosclerosis of unspecified type of vessel, chevak or graft Coronary artery disease Other and [...] unspecified vessel or lesion type, unspecified whether chevak or transplanted heart - ICD9: 414.00, ICD10: [...] Past Histories independently gathered by the clinical program support assistant and the remaining scribed note [...] PM. Marta Palacio MA documented in this encounterOhiohealth Riverside [facility] Hospital03-06-2024 Miscellaneous Notes* Telephone Encounter - Coretta Jalloh [facility] - 05/27/2023 2:23 PM EST [facility] Anticoagulation Episode Summary Anticoagulation Care Providers Provider Role Specialty Phone number Stas Mora MD Referring [facility] [phone] Roby Flores is a 87 year old year old male patient being evaluated today for a [facility] Anticoagulation Episode Summary Anticoagulation Care Providers Provider Role Specialty Phone number Stas Mora MD Referring [facility] [phone] Roby Flores is a 87 year old [...] ALLERGIES No Known Allergies 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 documented in this encounterOhiohealth Riverside [facility] Hospital02-28-2024 Miscellaneous Notes* Telephone Encounter - Coretta Jalloh RPh - 05/20/2023 2:36 PM EST [facility] Anticoagulation Episode Summary Anticoagulation Care Providers Provider Role Specialty Phone number Stas Mora MD Referring Family Medicine [phone] Roby Flores is a 87 year old [...] ALLERGIES No Known Allergies Indication for Warfarin: longterm current use of anticoagulant Paroxysmal atrial fibrillation [...] Pharmacy Anticoagulation Clinic Pharmacy Anticoagulation Clinic Pager: [phone]. documented in this encounterOhiohealth Riverside [facility] Hospital02-21-2024 Miscellaneous Notes* Telephone Encounter - Senia Phillips RPh - 05/13/2023 4:06 PM EST [facility] Anticoagulation Episode Summary Anticoagulation Care Providers Provider Role Specialty Phone number Stas Mora MD Referring Family Medicine [phone] Roby Flores is a 87 year old [...] ALLERGIES No Known Allergies Indication for Warfarin: longterm current use of anticoagulant Paroxysmal atrial fibrillation [...] Pharmacy Anticoagulation Clinic Pharmacy Anticoagulation Clinic Pager: [phone]. 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 Coretta Jalloh RPh Clinical Pharmacist, Pharmacy Anticoagulation Clinic Pharmacy Anticoagulation Clinic Pager: [phone]. 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 Elise Paredes [facility] Clinical Pharmacist, Pharmacy Anticoagulation Clinic Pharmacy Anticoagulation Clinic Pager: [phone]. documented in this encounterOhiohealth Riverside [facility] Hospital11-28-2023 Miscellaneous Notes* Telephone Encounter - Franca [...] evaluation Stas Mora MD documented in this encounterOhiohealth Riverside [facility] Hospital11-28-2023 History of Present illness Narrative* Janelle [...] 17, 2023 7:43 AM documented in this encounterOhiohealth Riverside Methodist Hospital11-27-2023 History of Present illness Narrative* Stas Mora MD - 02/16/2023 2:00 PM EST Chief Complaint Patient presents with: ED Follow-up HPI Roby Flores is a 87 year old male who presents here today for ER Follow Up.. Pt went to the [facility] ER on 02/10/23 with c/o fatigue, [...] Recheck in 1 week. Below copied from [facility]: Chief Complaint: Fatigue Informant: patient Onset/Context/Timing Onset: [...] Coronary atherosclerosis of unspecified type of vessel, chevak or graft Coronary artery disease Other and [...] Completed Pneumococcal Vaccine: 65+ Completed Data reviewed [facility] ER reports 02/10/23 ASSESSMENT/PLAN: 1. Cerebral [...] Past Histories independently gathered by the clinical program support assistant and the remaining scribed note [...] PM. 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 documented in this encounterOhiohealth Riverside [facility] Hospital11-17-2023 Miscellaneous Notes* Telephone Encounter - Senia Phillips RPh - 02/06/2023 4:28 PM EST [facility] Anticoagulation Episode Summary Anticoagulation Care Providers Provider Role Specialty Phone number Stas Mora MD Referring Family Medicine [phone] Roby Flores is a 87 year old [...] ALLERGIES No Known Allergies Indication for Warfarin: longterm current use of anticoagulant Paroxysmal atrial fibrillation [...] Pharmacy Anticoagulation Clinic Pharmacy Anticoagulation Clinic Pager: [phone]. 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 documented in this encounterOhiohealth Riverside [facility] Hospital09-29-2023 Miscellaneous Notes* Telephone Encounter - Senia Phillips RPh - 12/19/2022 4:30 PM EDT [facility] Clinic Anticoagulation Episode Summary Anticoagulation Care Providers Provider Role Specialty Phone number Stas Mora MD Referring Family Medicine [phone] Roby Flores is a 87 year old [...] ALLERGIES No Known Allergies Indication for Warfarin: longterm current use of anticoagulant Paroxysmal atrial fibrillation (hcc) Anticoagulation Episode Summary Current INR goal: 2.0-3.0 Assessment: INR result of 2.0 is therapeutic Plan: Current Warfarin Dosing As of 12/19/2022 Full warfarin instructions: 2.5 mg every day Sent [employer] message Advised patient to continue current weekly dose as noted above Next lab INR check scheduled on 01/02/2023 Senia Phillips RPh Clinical Pharmacist, Pharmacy Anticoagulation Clinic Pharmacy Anticoagulation Clinic Pager: [phone]. 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 documented in this encounterOhiohealth Riverside [facility] Hospital09-01-2023 Miscellaneous Notes* Telephone Encounter - Jeimy Duong RPh - 11/21/2022 2:38 PM EDT [facility] Clinic Anticoagulation Episode Summary Anticoagulation Care Providers Provider Role Specialty Phone number Stas Mora MD Referring Family Medicine [phone] Roby Flores is a 87 year old [...] Pharmacy Anticoagulation Clinic Pharmacy Anticoagulation Clinic Pager: [phone]. documented in this encounterOhiohealth Riverside [facility] Hospital08-28-2023 Hospital Discharge instructions Patient Education 11/17/2022 [...] Wound changes colors Numbness around the wound 9962-6380 [employer]. [address] [place] [address]. All rights reserved. This information is not [...] the ears or bruising around the eyes 4789-5340 [employer]. [address] [place] [address]. All rights reserved. This information is not intended as a substitute for professional medical care. Always follow yourhealthcare professional's instructions. Follow Up Care 11/17/2022 15:05:08 With:Call Physician Referral Address:Unknown When:2-4 days [facility] 08-28-2023 Note Discharge Instructions Thank you for allowing [facility] to assist you with your healthcare needs. [...] Wound changes colors Numbness around the wound 4230-1770 [employer] [address] [place] [address]. All rights reserved. This information is not [...] the ears or bruising around the eyes 4276-[address] [employer] [place] [address]. All rights reserved. This information is not intended as a substitute for professional medical care. Always follow yourhealthcare professional's instructions. Additional Information VACCINATE! IT SAVES LIVES! Members of the community who have not yet received the COVID-19 vaccine and would like to receive it can visit one of [facility] vaccine clinics. There are many vaccine clinic locations within the [facility]. For locations and available times, please visit [email or web address] It is important to note that some COVID mobile vaccine clinics are held outdoors and may be canceled in rainy or stormy conditions. To learn more about pediatric vaccinations (ages 5-11), we invite you to visit the [facility] webpage. [email or web address]/[email or web address] learn more about the COVID-19 vaccine, we invite you to visit the CDC website for a list of frequently asked questions. https://www.cdc.gov/coronavirus/2019-ncov/vaccines/faq.html [email or web address] Patient Portal Access Instructions: Stay connected with your healthcare team and access your personal medical information anytime with the [email or web address] Patient Portal. If you would like a full copy of your medical records please contact the [facility] Medical Records Department Thursday through Thursday between 8a.m. and 4:30p.m. Please follow the directions below to access the portal: 1.Access the email account you provided upon registration to the [facility].2.Look for an invitation email from [facility].3.Open the email and access the invitation link: Accept Invitation to [email or web address].Fill in the required العلي to create your account. Sign into www.NI with your username and password that you [...] you will allow to register on the [email or web address] Patient Portal for access to your information. You can also access the [email or web address] Patient Portal on the [employer] jonathon. Simply click on Health Records under [employer]Data and then click on the [employer] logo. HOW TO SAFELY DISPOSE OF PRESCRIPTION [...] Call your local pharmacy or go to [email or web address] to find one close to you.3.Make use of household items: Use cat litter or old coffee grounds to dispose medications if other options arenot available. Mix your drugs with these household products, seal them in an airtight container andthrow it into the garbage. Call [facility]: [phone] to be sure your drugs can be [...] aware that I should contact my doctor. Patient/Help Aid Signature: Date/Time: Relationship to Patient: Witness Name/Signature: Date/Time: [facility]08-28-2023 Note ORIGINAL EXAMINATION: CT OF THE [...] Date: 11/17/2022 4:26:20 PM Ordering Provider: STERLING [facility]08-18-2023 Miscellaneous Notes* Telephone Encounter - Denise Phillipsrachel [facility] - 11/07/2022 3:22 PM EDT [facility] Clinic Anticoagulation Episode Summary Anticoagulation Care Providers Provider Role Specialty Phone number Stas Mora MD Referring Family Medicine [phone] Roby Flores is a 87 year old [...] ALLERGIES No Known Allergies 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 documented in this encounterOhiohealth Riverside Methodist Hospital08-11-2023 Miscellaneous Notes* Telephone Encounter - Senia Phillips RPh - 10/31/2022 2:29 PM EDT Patient due to test INR today. Will continue to monitor for results. Senia Phillips RPh documented in this encounterOhiohealth Riverside Methodist Hospital08-04-2023 Miscellaneous Notes* Telephone Encounter - Senia Phillips RPh - 10/24/2022 3:13 PM EDT [facility] Anticoagulation Clinic Anticoagulation Episode Summary Anticoagulation Care Providers Provider Role Specialty Phone number Stas Mora MD Referring Family Medicine [phone] Roby Flores is a 87 year old [...] ALLERGIES No Known Allergies Indication for Warfarin: longterm current use of anticoagulant Paroxysmal atrial fibrillation (hcc) Anticoagulation Episode Summary Current INR goal: 2.0-3.0 Assessment: INR result of 2.5 is therapeutic Plan: Current Warfarin Dosing As of 10/24/2022 Full warfarin instructions: 2.5 mg every day Sent [employer] message Advised patient to decrease total weekly regimen to better reflect overall dose given past few weeks Next lab INR check scheduled on 10/31/2022 Senia Phillips RPh Clinical Pharmacist, Pharmacy Anticoagulation Clinic Pharmacy Anticoagulation Clinic Pager: [phone]. documented in this encounterOhiohealth Riverside [facility] Hospital07-28-2023 Miscellaneous Notes* Telephone Encounter - Jason [...] Anticoagulation TE call from today by the [facility]. They spoke with pt at [phone] and gave pt instructions on what to do. 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 documented in this encounterOhiohealth Riverside [facility] Hospital07-07-2023 Miscellaneous Notes* Telephone Encounter - Jeimy Duong RPh - 09/26/2022 2:11 PM EDT [facility] Anticoagulation Clinic Anticoagulation Episode Summary Anticoagulation Care Providers Provider Role Specialty Phone number Stas Mora MD Referring Family Medicine [phone] Roby Flores is a 87 year old [...] Pharmacy Anticoagulation Clinic Pharmacy Anticoagulation Clinic Pager: [phone]. 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 documented in this encounterOhiohealth Riverside [facility] Hospital06-06-2023 Instructions* Patient Instructions* Marta Palacio Ma - 08/26/2022 1:36 PM EDT Please check your medications when you get home and make sure that your medications match our list. documented in this encounterOhiohealth Riverside Methodist Hospital06-06-2023 History of Present illness Narrative* Stas Mora MD - 08/26/2022 1:20 PM EDT Medical B eligibilty date 1999 Date of last exam 09/05/2021 PAST MEDICAL HISTORY Diagnosis Date Coronary atherosclerosis of unspecified type of vessel, chevak or graft Coronary artery disease Other and [...] Past Histories independently gathered by the clinical program support assistant and the remaining scribed note accurately describes my personal service to the patient. Stas Mora MD The documentation for this note was completed by Marta Palacio Ma acting as scribe for Stas Mora MD. August 26, 2022 1:17 PM. 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 documented in this encounterOhiohealth Riverside [facility] Hospital04-28-2023 Miscellaneous Notes* Telephone Encounter - Senia Phillips RPh - 07/18/2022 3:29 PM EDT [facility]ulatory Pharm[facility] Anticoagulation Clinic Anticoagulation Episode Summary Anticoagulation Care Providers Provider Role Specialty Phone number Stas Mora MD Referring Family Medicine [phone] Roby Flores is a 86 year old [...] ALLERGIES No Known Allergies Indication for Warfarin: longterm current use of anticoagulant Paroxysmal atrial fibrillation (hcc) Anticoagulation Episode Summary Current INR goal: 2.0-3.0 Assessment: INR result of 2.1 is therapeutic Plan: Current Warfarin Dosing As of 07/18/2022 Full warfarin instructions: 2.5 mg every day Sent [employer] message Advised patient to continue current weekly dose as noted above Next lab INR check scheduled on 08/01/2022 Senia Phillips RPh Clinical Pharmacist, Pharmacy Anticoagulation Clinic Pharmacy Anticoagulation Clinic Pager: [phone]. documented in this encounterOhiohealth Riverside [facility] Hospital04-14-2023 Miscellaneous Notes* Telephone Encounter - Lety Gandara RPh - 07/04/2022 3:46 PM EDT [facility] Ambulatory Pharmacy Anticoagulation Clinic Anticoagulation Episode Summary Anticoagulation Care Providers Provider Role Specialty Phone number Stas Mora MD Referring Family Medicine [phone] Roby Flores is a 86 year old [...] ALLERGIES No Known Allergies Indication for Warfarin: longterm current use of anticoagulant Paroxysmal atrial fibrillation [...] Pharmacy Anticoagulation Clinic Pharmacy Anticoagulation Clinic Pager: [phone]. documented in this encounterOhiohealth Riverside Methodist [facility] Miscellaneous Notes* Telephone Encounter - Elvis Kearney APRN.CNP - 06/23/2022 10:17 AM EDT The following approved medication requests have been transmitted electronically. Requested Prescriptions Pending Prescriptions Disp Refills warfarin (COUMADIN) 2.5 mg tablet [Pharmacy Med Name: WARFARIN SODIUM 2.5 MG TABLET] 135 tablet 3 Sig: TAKE 5 MG EVERY MON, DIXIE 2.5 MG ALL OTHER DAYS Elvis Kearney APRN.CNP documented in this encounterOhio[facility]03-31-2023 Miscellaneous Notes* Telephone Encounter - Senia Phillpis [facility] - 06/20/2022 4:46 PM EDT [facility] Anticoagulation Episode Summary Anticoagulation Care Providers Provider Role Specialty Phone number Stas Mora MD Referring Family Medicine [phone] Roby Flores is a 86 year old [...] ALLERGIES No Known Allergies 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 documented in this encounterOhiohealth Riverside [facility] Hospital03-17-2023 Miscellaneous Notes* Telephone Encounter - Senia Phillips RPh - 06/06/2022 4:18 PM EDT [facility] Anticoagulation Episode Summary Anticoagulation Care Providers Provider Role Specialty Phone number Stas Mora MD Referring Family Medicine [phone] Roby Flores is a 86 year old [...] ALLERGIES No Known Allergies Indication for Warfarin: longterm current use of anticoagulant Paroxysmal atrial fibrillation (hcc) Anticoagulation Episode Summary Current INR goal: 2.0-3.0 Assessment: INR result of 2.6 is therapeutic Plan: Current Warfarin Dosing As of 06/06/2022 Full warfarin instructions: 2.5 mg every day Sent [employer] message Advised patient to continue current weekly dose as noted above Next lab INR check scheduled on 06/20/2022 Senia Phillips RPh Clinical Pharmacist, Pharmacy Anticoagulation Clinic Pharmacy Anticoagulation Clinic Pager: [phone]. documented in this encounterOhiohealth [facility]ide [facility] Hospital03-10-2023 Miscellaneous Notes* Telephone Encounter - Neeru Rice LPN - 05/30/2022 3:02 PM EST Pharmacists manage INR documented in this encounterOhiohealth Riverside [facility] Hospital03-02-2023 Miscellaneous Notes* Telephone Encounter - Halina [...] you. Jenna Fitzpatrick APRN.SHEMAR documented in this encounterOhiohealth Riverside [facility] Hospital03-01-2023 Miscellaneous Notes* Telephone Encounter - Judy [...] hip/leg 10. : na Protocols used: Hip [id number], Hip Kdingj-KNLDE-AR documented in this encounterOhiohealth Riverside [facility] Hospital03-01-2023 Miscellaneous Notes* Telephone Encounter - Fani Grace RN - 05/21/2022 12:22 PM EST Patient disconnected during transferred, called multiple time with no answer. documented in this encounterOhiohealth Riverside [facility] Hospital02-27-2023 Miscellaneous Notes* Telephone Encounter - Paige [...] instructions. Franca Cohen LPN documented in this encounterOhiohealth Riverside [facility] Hospital02-24-2023 Miscellaneous Notes* Telephone Encounter - Senia Phillips RPh - 05/16/2022 5:10 PM EST Patient due to test INR today. Will continue to monitor for results. Senia Phillips RPh documented in this encounterOhiohealth Riverside [facility] Hospital02-10-2023 Miscellaneous Notes* Telephone Encounter - Senia Phillips RPh - 05/02/2022 3:06 PM EST [facility] Anticoagulation Episode Summary Anticoagulation Care Providers Provider Role Specialty Phone number Stas Mora MD Referring Family Medicine [phone] Roby Flores is a 86 year old year old male patient being evaluated today for a Telemanagement visit. Patient is currently on the following anticoagulant(s) Warfarin. Labs PT INR (no units) Date Value 05/15/2021 2.3 04/17/2021 1.9 03/13/2021 Test sent to [facility]. 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 documented in this encounterOhiohealth Riverside [facility] Hospital01-27-2023 Miscellaneous Notes* Telephone Encounter - Senia Phillips RPh - 04/18/2022 4:25 PM EST [facility] Anticoagulation Episode Summary Anticoagulation Care Providers Provider Role Specialty Phone number Stas Mora MD Referring Family Medicine [phone] Roby Flores is a 86 year old year old male patient being evaluated today for a Telemanagement visit. Patient is currently on the following anticoagulant(s) Warfarin. Labs PT INR (no units) Date Value 05/15/2021 2.3 04/17/2021 1.9 03/13/2021 Test sent to [facility]. INR (no units) Date Value [...] ALLERGIES No Known Allergies Indication for Warfarin: longterm current use of anticoagulant Paroxysmal atrial fibrillation (hcc) Anticoagulation Episode Summary Current INR goal: 2.0-3.0 Assessment: INR result of 2.4 is therapeutic Plan: Current Warfarin Dosing As of 04/18/2022 Full warfarin instructions: 2.5 mg every day; Starting 04/18/2022 Sent [employer] message Advised patient to continue current weekly dose as noted above Next lab INR check scheduled on 05/02/2022 Senia Phillips RPh Clinical Pharmacist, Pharmacy Anticoagulation Clinic Pharmacy Anticoagulation Clinic Pager: [phone]. documented in this encounterOhiohealth Riverside [facility] Hospital01-13-2023 Miscellaneous Notes* Telephone Encounter - Elise Paredes RPh - 04/04/2022 4:09 PM EST [facility] Anticoagulation Episode Summary Anticoagulation Care Providers Provider Role Specialty Phone number Stas Mora MD Referring Family Medicine [phone] Roby Flores is a 86 year old year old male patient being evaluated today for a Lab INR. Patient is currently on the following anticoagulant(s) Warfarin. Labs PT INR (no units) Date Value 05/15/2021 2.3 04/17/2021 1.9 03/13/2021 Test sent to [facility]. 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 documented in this encounterOhiohealth Riverside [facility] Hospital01-09-2023 Miscellaneous Notes* Telephone Encounter - Rosie Cruz Ma - 03/31/2022 5:12 PM EST Office received continuity of care paperwork from the [place] requesting pt's last OV, labs and Imm. PerPCP okay to fax back requested records. Faxed back to [facility] at F#: [phone]. Rosie Cruz Ma documented in this encounterOhiohealth Riverside [facility] Hospital12-30-2022 Miscellaneous Notes* Telephone Encounter - Carmelina Cruz [facility] - 03/21/2022 4:05 PM EST [facility] Clinic Anticoagulation Episode Summary Anticoagulation Care Providers Provider Role Specialty Phone number Stas Mora MD Referring Family Medicine [phone] Roby Flores is a 86 year old year old male patient being evaluated today for a Telemanagement visit. Patient is currently on the following anticoagulant(s) Warfarin. Labs PT INR (no units) Date Value 05/15/2021 2.3 04/17/2021 1.9 03/13/2021 Test sent to [facility]. 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 * Telephone Encounter - Carmelina Cruz RPh - 03/21/2022 3:12 PM EST Patient due to test INR today. Will continue to monitor for results. Carmelina Cruz RPh documented in this encounterOhiohealth Riverside [facility] Hospital12-02-2022 Miscellaneous Notes* Telephone Encounter - Oliva [...] whatever he wanted to. documented in this encounterOhiohealth Riverside Methodist Hospital10-31-2022 Miscellaneous Notes* Telephone Encounter - Paige Hickman RPh - 01/20/2022 3:55 PM EDT [facility] Anticoagulation Episode Summary Anticoagulation Care Providers Provider Role Specialty Phone number Stas Mora MD Referring Family Medicine [phone] Roby Flores is a 86 year old year old male patient being evaluated today for a Telemanagement visit. Patient is currently on the following anticoagulant(s) Warfarin. Labs PT INR (no units) Date Value 05/15/2021 2.3 04/17/2021 1.9 03/13/2021 Test sent to [facility]. INR (no units) Date Value [...] instructed to call [facility] at [phone] with any questionsor concerns. Paige Hickman RP Clinical Pharmacist, Pharmacy Anticoagulation Clinic Pharmacy Anticoagulation Clinic Pager: [phone] documented in this encounterOhiohealth Riverside [facility] Hospital10-28-2022 Miscellaneous Notes* Telephone Encounter - Senia Phillips RPh - 01/17/2022 5:27 PM EDT Follow up with INR result on Thursday, 01/20. Yong AnD, BCPS * Telephone Encounter - Oliva [place] [...] the providers message. Sent information as a [employer] message as well. Elana Valdes, RN * [...] to contact patient with no answer at [phone]. Current dose of coumadin is: 2.5 mg every day . Previous INR (date and result): 01/03/22 2.4 documented in this encounterOhiohealth Riverside [facility] Hospital10-24-2022 Miscellaneous Notes* Telephone Encounter - Jenna [...] advise. López Mckenna LPN documented in this encounterOhiohealth Riverside [facility] Hospital10-14-2022 Miscellaneous Notes* Telephone Encounter - Senia Phillips RPh - 01/03/2022 4:11 PM EDT [facility] Anticoagulation Episode Summary Anticoagulation Care Providers Provider Role Specialty Phone number Stas Mora MD Referring Family Medicine [phone] Roby Flores is a 86 year old year old male patient being evaluated today for a Telemanagement visit. Patient is currently on the following anticoagulant(s) Warfarin. Labs PT INR (no units) Date Value 05/15/2021 2.3 04/17/2021 1.9 03/13/2021 Test sent to [facility]. 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 documented in this encounterOhiohealth Riverside [facility] Hospital10-14-2022 Miscellaneous Notes* Telephone Encounter - Marta Palacio Ma - 01/03/2022 10:49 AM EDT Pt notified of results via [employer] Marta Palacio Ma * Telephone Encounter - Stas Mora MD - 01/02/2022 6:07 PM EDT Please notify patient that his thyroid ultrasound looks OK, the nodules are all small, appear normal, and do not need any further evaluation pr follow up. Stas Mora MD documented in this encounterOhiohealth Riverside [facility] Hospital10-06-2022 History of Present illness Narrative* Stas [...] about 1-2 hours. Pt was admitted to [facility] ER 12/21/21 with stroke sx however [...] in the last year. Below copied from [facility]: HPI History of Present Illness Chief Complaint: [...] extremities. He has 5 out of 5 tracer clerk strength bilaterally. Dorsi and plantar flexion intact. [...] Chronic anticoagulation: Status: Acute Code(s): Z79.01 - 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 teacher (current) use of anticoagulants Medications at Discharge [...] symptoms resolved. Hospital Course: 1. TIA/paroxysmal A. [id number]-old male presented with right-sided weakness and aphasia, [...] Coronary atherosclerosis of unspecified type of vessel, [place] or graft Coronary artery disease Other and [...] 12/06/2024 ADVANCE DIRECTIVE DISCUSSION Completed Data reviewed [facility] reports from 10/21/21-10/22/21 ASSESSMENT/PLAN: 1. Hospital [...] unspecified vessel or lesion type, unspecified whether chevak or transplanted heart - ICD9: 414.00, ICD10: I25.10 Continue current medications. Follow up in Dec as scheduled with fasting labs prior. I agree with the Chief Complaint, ROS, and Past Histories independently gathered by the clinical program support assistant and the remaining scribed note [...] AM. Marta Palacio Ma documented in this encounterOhiohealth Riverside [facility] Hospital09-30-2022 Miscellaneous Notes* Telephone Encounter - Senia Alan [facility] - 12/20/2021 4:39 PM EDT [facility] An[facility] Clinic Anticoagulation Episode Summary Anticoagulation Care Providers Provider Role Specialty Phone number Stas Mora MD Referring Family Medicine [phone] Roby Flores is a 86 year old year old male patient being evaluated today for a Telemanagement visit. Patient is currently on the following anticoagulant(s) Warfarin. Labs PT INR (no units) Date Value 05/15/2021 2.3 04/17/2021 1.9 03/13/2021 Test sent to [facility]. 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 documented in this encounterOhiohealth Riverside [facility] Hospital09-16-2022 Miscellaneous Notes* Telephone Encounter - Senia Phillips RPh - 12/06/2021 4:29 PM EDT [facility] Clinic Anticoagulation Episode Summary Anticoagulation Care Providers Provider Role Specialty Phone number Stas Mora MD Referring [facility] [phone] Roby Flores is a 86 year old year old male patient being evaluated today for a Telemanagement visit. Patient is currently on the following anticoagulant(s) Warfarin. Labs PT INR (no units) Date Value 05/15/2021 2.3 04/17/2021 1.9 03/13/2021 Test sent to [facility]. INR (no units) Date Value [...] ALLERGIES No Known Allergies Indication for Warfarin: longterm current use of anticoagulant Paroxysmal atrial fibrillation [...] Pharmacy Anticoagulation Clinic Pharmacy Anticoagulation Clinic Pager: [phone]. documented in this encounterOhiohealth Riverside [facility] Hospital09-02-2022 Miscellaneous Notes* Telephone Encounter - Janice Huang RPh - 11/22/2021 5:17 PM EDT [facility] Clinic Anticoagulation Episode Summary Anticoagulation Care Providers Provider Role Specialty Phone number Stas Mora MD Referring [facility] [phone] Roby Flores is a 86 year old year old male patient being evaluated today for a Telemanagement visit. Patient is currently on the following anticoagulant(s) Warfarin. Labs PT INR (no units) Date Value 05/15/2021 2.3 04/17/2021 1.9 03/13/2021 Test sent to [facility]. INR (no units) Date Value [...] ALLERGIES No Known Allergies Indication for Warfarin: longterm current use of anticoagulant Paroxysmal atrial fibrillation [...] Advised pt to Call Coumadin Clinic at [phone] to confirm dosing and follow-up Janice Huang RPh Clinical Pharmacist, Pharmacy Anticoagulation Clinic Pharmacy Anticoagulation Clinic Pager: [phone]. documented in this encounterOhiohealth Riverside [facility] Hospital08-19-2022 Miscellaneous Notes* Telephone Encounter - Senia Phillips RPh - 11/08/2021 5:01 PM EDT [facility] Anticoagulation Episode Summary Anticoagulation Care Providers Provider Role Specialty Phone number Stas Mora MD Referring [facility] [phone] Roby Flores is a 86 year old year old male patient being evaluated today for a Telemanagement visit. Patient is currently on the following anticoagulant(s) Warfarin. Labs PT INR (no units) Date Value 05/15/2021 2.3 04/17/2021 1.9 03/13/2021 Test sent to [facility]. INR (no units) Date Value [...] ALLERGIES No Known Allergies Indication for Warfarin: longterm current use of anticoagulant Paroxysmal atrial fibrillation (hcc) Anticoagulation Episode Summary Current INR goal: 2.0-3.0 Assessment: INR result of 2.8 is therapeutic Plan: Current Warfarin Dosing As of 11/08/2021 Full warfarin instructions: 2.5 mg every day Sent [employer] message Advised patient to continue current weekly dose as noted above Next lab INR check scheduled on 11/22/2021 Senia Phillips RPh Clinical Pharmacist, Pharmacy Anticoagulation Clinic Pharmacy Anticoagulation Clinic Pager: [phone]. documented in this encounterOhiohealth Riverside [facility] Hospital08-05-2022 Miscellaneous Notes* Telephone Encounter - Janice Huang RPh - 10/25/2021 4:16 PM EDT [facility] Clinic Anticoagulation Episode Summary Anticoagulation Care Providers Provider Role Specialty Phone number Stas Mora MD Referring [facility] [phone] Roby Flores is a 86 year old year old male patient being evaluated today for a Telemanagement visit. Patient is currently on the following anticoagulant(s) Warfarin. Labs PT INR (no units) Date Value 05/15/2021 2.3 04/17/2021 1.9 03/13/2021 Test sent to [facility]. INR (no units) Date Value [...] ALLERGIES No Known Allergies Indication for Warfarin: longterm current use of anticoagulant Paroxysmal atrial fibrillation [...] Patient denies need for refills. Janice Huang [facility] Clinical Pharmacist, Pharmacy Anticoagulation Clinic Pharmacy Anticoagulation Clinic Pager: [phone] . documented in this encounterOhiohealth Riverside Methodist Hospital07-08-2022 Miscellaneous Notes* Telephone Encounter - Elana Campbell ([employer]) - 09/27/2021 4:50 PM EDT PATIENT CALL Patient called call center regarding results. Patient called and stated he had his INR checked today (09/27) and it was 2.3. Patient can be called at [phone] with any questions or sent [facility] message if result is within range. PT INR (no units) Date Value 05/15/2021 2.3 04/17/2021 1.9 03/13/2021 Test sent to [facility]. INR (no units) Date Value 09/27/2021 2.3 09/13/2021 2.7 08/30/2021 2.1 Elana Campbell ([employer]) * Telephone Encounter - Yomi Wills RPh - 09/27/2021 6:28 AM EDT Patient due to test INR today. Will continue to monitor for results. Yomi Wills RP documented in this encounterOhiohealth Riverside [facility] Hospital06-24-2022 Miscellaneous Notes* Telephone Encounter - Senia Phillips RPh - 09/13/2021 4:11 PM EDT [facility] Clinic Anticoagulation Episode Summary Anticoagulation Care Providers Provider Role Specialty Phone number Stas Mora MD Referring [facility] [phone] Roby Flroes is a 86 year old year old male patient being evaluated today for a Telemanagement visit. Patient is currently on the following anticoagulant(s) Warfarin. Labs PT INR (no units) Date Value 05/15/2021 2.3 04/17/2021 1.9 03/13/2021 Test sent to [facility]. INR (no units) Date Value [...] ALLERGIES No Known Allergies Indication for Warfarin: longterm current use of anticoagulant Paroxysmal atrial fibrillation (hcc) Anticoagulation Episode Summary Current INR goal: 2.0-3.0 Assessment: INR result of 2.7 is therapeutic Plan: Sent [employer] message Advised patient to continue current weekly dose Next lab INR check scheduled on 09/27/2021 Senia Phillips RPh Clinical Pharmacist, Pharmacy Anticoagulation Clinic Pharmacy Anticoagulation Clinic Pager: [phone] . documented in this encounterOhiohealth Riverside [facility] Hospital06-16-2022 History of Present illness Narrative* Stas Mora MD - 09/05/2021 11:20 AM EDT Medical B eligibilty date 1999 Date of last exam 08/28/2020 PAST MEDICAL HISTORY Diagnosis Date Coronary atherosclerosis of unspecified type of vessel, [place] or graft Coronary artery disease Other and [...] [place] every 6 [place]. Pt follows with [facility] for Coumadin management. Pt denies [...] to remember the following three words: Banana, Mattoon and Chair Visuospatial/Executive Functioning: Clock drawin/2 (Normal [...] Past Histories independently gathered by the clinical program support assistant and the remaining scribed note accurately describes my personal service to the patient. Stas Mora MD The documentation for this note was completed by Rosie Cruz Ma acting as scribe for Stas Mora MD. September 05, 2021 11:33 AM. Rosie Cruz Ma documented in this encounterOhiohealth Riverside [facility] Hospital06-10-2022 Miscellaneous Notes* Telephone Encounter - Senia Phillips [facility] - 08/30/2021 5:10 PM EDT [facility] Clinic Anticoagulation Episode Summary Anticoagulation Care Providers Provider Role Specialty Phone number Stas Mora MD Referring [facility] [phone] Roby Flores is a 86 year old year old male patient being evaluated today for a Telemanagement visit. Patient is currently on the following anticoagulant(s) Warfarin. Labs PT INR (no units) Date Value 05/15/2021 2.3 04/17/2021 1.9 03/13/2021 Test sent to [facility]. 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 documented in this encounterOhiohealth [facility]06-10-2022 Miscellaneous Notes* Telephone Encounter - Jenna Fitzpatrick APRN.CNP - 08/30/2021 8:56 AM EDT Needs order for PT/INR, order signed. Jenna Fitzpatrick APRN.CNP documented in this encounterOhiohealth Riverside [facility] Hospital05-27-2022 Miscellaneous Notes* Telephone Encounter - Rosie Cruz Ma - 08/16/2021 2:18 PM EDT INR has been reviewed in another encounter. Rosie Cruz Ma documented in this encounterOhiohealth [facility]ide [facility] Hospital05-13-2022 Miscellaneous Notes* Telephone Encounter - Senia Phillips RPh - 08/02/2021 4:11 PM EDT [facility] Anticoagulation Episode Summary Anticoagulation Care Providers Provider Role Specialty Phone number Stas Mora MD Referring [facility] [phone] Roby Flores is a 85 year old year old male patient being evaluated today for a Telemanagement visit. Patient is currently on the following anticoagulant(s) Warfarin. Labs PT INR (no units) Date Value 05/15/2021 2.3 04/17/2021 1.9 03/13/2021 Test sent to [facility]. 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 documented in this encounterOhiohealth [facility]ide [facility] Hospital04-27-2022 Miscellaneous Notes* Telephone Encounter - Rosie [...] months Stas Mora MD documented in this encounterOhiohealth [facility]ide [facility] Hospital04-25-2022 Miscellaneous Notes* Telephone Encounter - Elvis Kearney APRN.CNP - 07/15/2021 12:39 PM EDT The following approved medication requests have been transmitted electronically. Pending Prescriptions Disp Refills WARFARIN 2.5 MG TABLET 135 tablet 3 Sig: TAKE 5 MG EVERY MON, DIXIE 2.5 MG ALL OTHER DAYS MESFIN: No Elvis Kearney APRN.CNP documented in this encounterOhiohealth Riverside [facility] Hospital04-18-2022 History of Present illness Narrative* Stas [...] SOB. No swelling in feet orankles. No coal hauler. Taking Fosinopril 10 mg daily. Lipid: Taking [...] Coronary atherosclerosis of unspecified type of vessel, [place] or graft Coronary artery disease Other and [...] unspecified vessel or lesion type, unspecified whether [place] or transplanted heart - ICD9: 414.00, ICD10: [...] Past Histories independently gathered by the clinical program support assistant and the remaining scribed note [...] AM. Marta Palacio Ma documented in this encounterOhiohealth Riverside [facility] Hospital04-13-2022 Miscellaneous Notes* Telephone Encounter - Coretta Jalloh RPh - 07/03/2021 3:40 PM EDT [facility] Anticoagulation Episode Summary Anticoagulation Care Providers Provider Role Specialty Phone number Stas Mora MD Referring [facility] [phone] Roby Flores is a 85 year old year old male patient being evaluated today for a Lab INR. Patient is currently on the following anticoagulant(s) Warfarin. Labs PT INR (no units) Date Value 05/15/2021 2.3 04/17/2021 1.9 03/13/2021 Test sent to [facility]. INR (no units) Date Value 07/03/2021 4.5 06/12/2021 3.5 Creatinine (mg/dL) Date Value 03/13/2021 0.80 08/28/2020 0.83 Bilirubin, Total (mg/dL) Date Value 03/13/2021 0.5 ALT (U/L) Date Value 03/13/2021 24 AST (U/L) Date Value 03/13/2021 24 CrCl cannot be calculated (Unknown ideal weight.). 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 * Telephone Encounter - Marta Palacio Ma - 07/03/2021 3:05 PM EDT INR 4.5. Results routed to pharmacist who Handles pt coumadin. Marta Palacio Ma documented in this encounterOhiohealth Riverside [facility] Hospital03-23-2022 Miscellaneous Notes* Telephone Encounter - Coretta Jalloh RPh - 06/12/2021 3:20 PM EDT [facility] Anticoagulation Episode Summary Anticoagulation Care Providers Provider Role Specialty Phone number Stas Mora MD Referring [facility] [phone] Roby Flores is a 85 year old year old male patient being evaluated today for a Lab INR. Patient is currently on the following anticoagulant(s) Warfarin. Labs PT INR (no units) Date Value 05/15/2021 2.3 04/17/2021 1.9 03/13/2021 Test sent to [facility]. INR (no units) Date Value 06/12/2021 3.5 Creatinine (mg/dL) Date Value 03/13/2021 0.80 08/28/2020 0.83 Bilirubin, Total (mg/dL) Date Value 03/13/2021 0.5 ALT (U/L) Date Value 03/13/2021 24 AST (U/L) Date Value 03/13/2021 24 CrCl cannot be calculated (Unknown ideal weight.). ALLERGIES No Known Allergies Indication for Warfarin: longterm current use of anticoagulant Paroxysmal atrial fibrillation (hcc) Anticoagulation Episode Summary Current INR goal: 2.0-3.0 Assessment: INR result of 3.5 is SUPRAtherapeutic due to: No obvious cause Plan: Called and spoke to patient/caregiver Advised patient to hold 1 dose then continue current regimen Next lab INR check scheduled on 07/03 in [place]. Patient verbalizes understanding of the plan. Patient denies need for refills. Coretta Jalloh RPh Clinical Pharmacist, Pharmacy Anticoagulation Clinic Pharmacy Anticoagulation Clinic Pager: [phone] . * Telephone Encounter - Rosie Cruz Maria E - 06/12/2021 3:08 PM EDT Pt's INR results have finalized. Routing to pharm to review and advise. Rosie Cruz Ma documented in this encounterOhiohealth Riverside [facility] Hospital12-21-2020 History of Present illness Narrative* Hussein [...] 12, 2020 5:01 PM documented in this encounterOhiohealth Riverside Methodist HospitalDischarge summary Author Inderjit Gillespie [facility] Note Date/Time September 01, 2024 10:2 5am [facility] Medical Records Department [address] [place] [address] Emergency Department Summary 09/01/24 MR#: [id number] Acct: [id number] Name: ROBY FLORES Rep #:[id number] : [...] shoulders elbows and wrist. He has normal tracer clerk strength. Neurologically he is awake alert. Answering [...] 87.5 H Lymph % (Auto) 4.8 L [place] % (Auto) 5.7 Eos % (Auto) 1.2 [...] Clarity Clear Urine pH 8.0 Ur Specific [place] 1.010 Urine Protein 15 H Urine Glucose [...] No fracture or dislocation present. Reading Location: [facility] 09/01/24 09:05 IMPRESSION: Cerebral atrophy. Mucosal thickening of the ethmoid sinuses as well as opacification of the left maxillary sinus. Reading Location: [facility] Chest X-Ray 09/01/24 09:25 IMPRESSION: No acute abnormality is seen. Reading Location: [facility] Chest x-ray, 2 views, AP and [...] to thrive Disposition Disposition: Acute Care Hospital [facility] What to do if you have Problems For any increased pain, shortness of breath, bleeding, nausea or vomiting, chestpain, or any unexpected problems, contact your Primary Care Provider. Call [facility] ([phone]) or report to the closest Emergency Room. Call 911 if necessary. 09/01/24 1025 <Electronically signed by Inderjit Gillespie MD> Cosigner Signature (if applicable): CC: Dr. 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- Primary Long-term (current) use of anticoagulants Paroxysmal atrial fibrillation (HCC) Atrial fibrillation documented [facility] encounter [facility]* Diagnosis Essential hypertension, benign- Primary Atherosclerosis 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, unspecified vessel or lesion type, unspecified whether [place] or transplanted heart Paroxysmal atrial fibrillation (HCC) Atrial fibrillation Primary osteoarthritis of both knees Primary localized osteoarthrosis, lower leg documented in this encounter [facility]* Diagnosis Atherosclerosis 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, unspecified vessel or lesion type, unspecified whether [place] or transplanted heart- Primary Essential hypertension, benign documented [facility] encounter [facility]* Diagnosis 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- Primary Long-term (current) use of anticoagulants Paroxysmal atrial fibrillation (HCC) Atrial fibrillation [facility]* Diagnosis Elevated INR- Primary Abnormal coagulation profile [facility] this encounter [facility]* Diagnosis 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- Primary Long-term (current) use of anticoagulants Paroxysmal atrial fibrillation (HCC) Atrial fibrillation documented in this encounter [facility]* Diagnosis Encounter for Medicare annual wellness exam- Primary Routine general medical examination at a [facility] facility Paroxysmal atrial fibrillation (HCC) Atrial fibrillation Essential hypertension, benign documented in this encounter [facility]* Diagnosis 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- Primary Long-term (current) use of anticoagulants Encounter for monitoring Coumadin therapy Encounter for therapeutic drug monitoring documented in this encounter [facility]* Diagnosis 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- Primary Long-term (current) use of anticoagulants Paroxysmal atrial fibrillation (HCC) Atrial fibrillation documented in this encounter [facility]* Diagnosis longterm current use of anticoagulant- Primary Long-term (current) use of anticoagulants Paroxysmal atrial fibrillation (HCC) Atrial fibrillation documented in this encounter [facility]* Diagnosis Onset Date Resolution Status Chronic anticoagulation acut e TIA (transient ischemic attack) acute CAD (coronary artery disease) [facility] Work Phone: Evaluation note* Diagnosis Onset Date Resolution Status Chronic anticoagulation acut e Stroke-like symptoms acute TIA (transient ischemic attack) acute CAD (coronary artery disease) [facility] Work Phone: Evaluation note* Diagnosis Hospital discharge follow-up- Primary Other follow-up examination Encounter for immunization Need for other specified prophylactic vaccination against single bacterial disease TIA (transient ischemic attack) Unspecified transient cerebral ischemia Thyroid nodule Nontoxic uninodular goiter Essential hypertension, benign Paroxysmal atrial fibrillation (HCC) Atrial fibrillation Atherosclerosis 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, unspecified vessel or lesion type, unspecified whether [place] or transplanted heart documented in this encounter [facility]* Diagnosis longterm current use of anticoagulant- Primary Long-term (current) use of anticoagulants Paroxysmal atrial fibrillation (HCC) Atrial fibrillation documented [facility] this encounter [facility]* Diagnosis longterm current use of anticoagulant- Primary Long-term (current) use of anticoagulants Paroxysmal atrial fibrillation (HCC) Atrial fibrillation documented [facility] this encounter [facility]* Diagnosis longterm current use of anticoagulant- Primary Long-term (current) use of anticoagulants Paroxysmal atrial fibrillation (HCC) Atrial fibrillation [facility] this [facility]* Diagnosis Encounter for Medicare annual wellness exam- Primary Routine general medical examination at a [facility] Paroxysmal atrial fibrillation (HCC) Atrial fibrillation Essential hypertension, benign Hyperlipidemia, unspecified hyperlipidemia type [facility]* Diagnosis 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- Primary Long-term (current) use of anticoagulants Paroxysmal atrial fibrillation (HCC) Atrial fibrillation documented [facility] this encounter [facility]* Diagnosis longterm current use of anticoagulant- Primary Long-term (current) use of anticoagulants Paroxysmal atrial fibrillation (HCC) Atrial fibrillation documented [facility] this encounter [facility]* Diagnosis 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- Primary Long-term (current) use of anticoagulants Paroxysmal atrial fibrillation (HCC) Atrial fibrillation [facility] this [facility]* Diagnosis longterm current use of anticoagulant- Primary Long-term (current) use of anticoagulants Paroxysmal atrial fibrillation (HCC) Atrial fibrillation documented in this encounter [facility] noteNo assessment information availableWRegional Medical Center Work Phone: Evaluation note* Diagnosis 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- Primary Long-term (current) use of anticoagulants Paroxysmal atrial fibrillation (HCC) Atrial fibrillation documented [facility] this encounter [facility]* Diagnosis Cerebral infarction, unspecified mechanism (HCC)- Primary Generalized weakness Other malaise and fatigue Speech disturbance, unspecified type Hyperlipidemia, unspecified hyperlipidemia type Essential hypertension, benign Paroxysmal atrial fibrillation (HCC) Atrial fibrillation [facility]* Diagnosis Cerebral infarction, unspecified mechanism (HCC) documented [facility] this encounter [facility]* Diagnosis longterm current use of anticoagulant- Primary Long-term (current) use of anticoagulants Paroxysmal atrial fibrillation (HCC) Atrial fibrillation documented [facility] this [facility]* Diagnosis Essential hypertension, benign- Primary Paroxysmal atrial fibrillation (HCC) Atrial fibrillation Atherosclerosis 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, unspecified vessel or lesion type, unspecified whether [place] or transplanted heart Hyperlipidemia, unspecified hyperlipidemia type History of stroke with 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 Speech disturbance, unspecified type [facility] Diagnosis Abnormal CBC- Primary Other abnormal blood chemistry [facility]* Diagnosis longterm current use of anticoagulant- Primary Long-term (current) use of anticoagulants Paroxysmal atrial fibrillation (HCC) Atrial fibrillation [facility]* Diagnosis 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- Primary Long-term (current) use of anticoagulants Paroxysmal atrial fibrillation (HCC) Atrial fibrillation [facility]* Diagnosis 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- Primary Long-term (current) use of anticoagulants Paroxysmal atrial fibrillation (HCC) Atrial fibrillation [facility] Diagnosis 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- Primary Long-term (current) use of anticoagulants Paroxysmal atrial fibrillation (HCC) Atrial fibrillation [facility]* Diagnosis 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, psychotic disturbance, mood disturbance, or anxiety (HCC)- Primary Essential hypertension, benign Paroxysmal atrial fibrillation (HCC) Atrial fibrillation [facility]* Diagnosis Edema of both lower legs- Primary [facility]* Diagnosis longterm current use of anticoagulant- Primary Long-term (current) use of anticoagulants Paroxysmal atrial fibrillation (HCC) Atrial fibrillation [facility]* Diagnosis 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 Long-term (current) use [...] abnormal blood chemistry documented in this encounter [facility] note* Diagnosis 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- Primary Long-term (current) use of anticoagulants Paroxysmal atrial fibrillation (HCC) Atrial fibrillation documented in this encounter [facility] note* Diagnosis longterm current use of anticoagulant- Primary Long-term (current) use of anticoagulants Paroxysmal atrial fibrillation (HCC) Atrial fibrillation [facility]* Diagnosis Left hip pain Pain in joint, pelvic region and thigh documented in this encounter [facility] note* Diagnosis longterm current use of anticoagulant- Primary Long-term (current) use of anticoagulants Paroxysmal atrial fibrillation (HCC) Atrial fibrillation documented in this encounter [facility] note* Diagnosis Acute right-sided low back pain, unspecified whether sciatica present documented in this encounter [facility] note* Diagnosis Paroxysmal atrial fibrillation (HCC)- Primary Atrial fibrillation [facility]* Diagnosis longterm current use of anticoagulant- Primary Long-term (current) use of anticoagulants Paroxysmal atrial fibrillation (HCC) Atrial fibrillation documented in this encounter [facility] note* Diagnosis longterm current use of anticoagulant- Primary Long-term (current) use of anticoagulants Paroxysmal atrial fibrillation (HCC) Atrial fibrillation [facility]* Diagnosis Dementia, unspecified dementia severity, unspecified dementia type, unspecified whether behavioral, psychotic, or mood disturbance or anxiety (HCC)- Primary documented in this encounter [facility] note* Diagnosis longterm current use of anticoagulant- Primary Long-term (current) use of anticoagulants Paroxysmal atrial fibrillation (HCC) Atrial fibrillation documented in this encounter [facility] note* Diagnosis Dementia, unspecified dementia severity, [...] and musculoskeletal systems documented [facility] this encounter [facility]* Diagnosis Cognitive impairment, mild, so stated Mild cognitive impairment, so stated documented in this encounter [facility] note* Diagnosis Essential hypertension, benign- Primary Hyperlipidemia, unspecified hyperlipidemia type Atherosclerosis 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, unspecified vessel or lesion type, unspecified whether [place] or transplanted heart Paroxysmal atrial fibrillation (HCC) Atrial fibrillation Edema of both lower legs History of stroke with 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 Dementia, unspecified dementia severity, unspecified dementia type, unspecified whether behavioral, psychotic, or mood disturbance or anxiety (HCC) documented in this encounter [facility] note* 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) Paralysis agitans documented in this encounter [facility] note* Diagnosis Bursitis of right elbow, unspecified bursa- Primary documented in this encounter [facility] note* Diagnosis Moderate dementia without behavioral disturbance, psychotic disturbance, mood disturbance, or anxiety, unspecified dementia type (HCC)- Primary Hallucinations Screening for depression Encounter for screening examination for other mental health and behavioral disorders documented in this encounter [facility] for referral (narrative)* Diagnostic Procedure Only (Routine) - Authorized Specialty Diagnoses / Procedures Referred By Jennifer gomez Referred To Contact US IMAGING Diagnoses Thyroid nodule Procedures US THYROID/PARATHYROID US SOFT TISSUE HEAD & NECK REAL TIME IMGE DOCM Stas Mora MD [address] [place] [address] Us Imaging Referral ID Status Reason Start Date Expiration Date Visits Requested Visits Authorized [id number] Authorized Auto-Generat ed Referral 12/26/2021 01/25/2023 1 1 [facility] for referral (narrative)* Diagnostic Procedure Only (Urgent) - Closed Specialty Diagnoses / Procedures Referred By Jennifer t Referred To Contact XR IMAGING Diagnoses Left hip pain Procedures XR HIP GENERAL 3V PELV/AP/LAT LEFT RADEX HIP UNILATERAL WITH PELVIS 2-3 VIEWS Jenna Fitzpatrick, JETHRO.ATTORNEY LAWYER [address] [place] [address] [place] [address] Referral ID Status Reason Start Date Expiration Date V isits Requested Visits Authorized [id number] Closed Auto-Generate d Referral 05/21/2022 06/20/2023 1 1 [facility] for referral (narrative)No reason for referral information availableWRegional Medical Center Work Phone: Reason for visit Narrative* Diagnostic Procedure Only (Urgent) - Closed Specialty Diagnoses / Procedures Referred By Contac t Referred To Contact XR IMAGING Diagnoses Left hip pain Procedures XR HIP GENERAL 3V PELV/AP/LAT LEFT RADEX HIP UNILATERAL WITH PELVIS 2-3 VIEWS Jenna Fitzpatrick APRN.CNP [address] [place] [address] Xr Imaging [facility] Referral ID Status Reason Start Date Expiration Date V isits Requested Visits Authorized [id number] Closed Auto-Generate d Referral 05/21/2022 06/20/2023 1 1 [facility] for visit Narrative* MRI/CT (Routine) - Closed Specialty Diagnoses / Procedures Referred By Contac t Referred To Contact MR IMAGING Diagnoses Cognitive impairment, mild, so stated Procedures MRI BRAIN W QUANT WO IVCON MRI BRAIN BRAIN STEM W/O CONTRAST MATERIAL Luciana Cisneros MD [address] [place] [address] Phone: tel: fax: MR IMAGING [facility] Referral ID Status Reason Start Date Expiration Date V isits Requested Visits Authorized [id number] Closed Auto-Generate d Referral 05/11/2024 07/10/2024 1 1 [facility] Summary Purpose Family History No Family [...] Will Yes December 21 6:17pm Power of Telegraph Service Rater Yes December 21 022 6:17pm Name of Medical Power of Telegraph Service Rater IRAJ HULL , DAUGHTER December 21, 2021 6:17pm Advance Directive Response Recorded Date/ Time Name of Medical Power of Telegraph Service Rater Anabella Hull December 21, 2021 8:06pm Living Will Yes December 21 8:06pm Power of Telegraph Service Rater Yes December 21, 022 8:06pm Advance Directive Response Recorded Date/ Time Living Will Yes February 10, 023 3:17pm Power of Telegraph Service Rater Yes February 10, 2023 3:17pm Name of Medical Power of Telegraph Service Rater daughter-yomi hull February 10, 2023 3:17pm Advance Directive Response Recorded Date/ Time Do you have a Healthcare Power of Telegraph Service Rater? Yes September 01, 2024 7:36am Name of Medical Power of Telegraph Service Rater anabella hull September 01, 2024 7:36am Advance Directive Response Recorded Date/ Time Do you have a Healthcare Power of Telegraph Service Rater? Yes September 01, 2024 12:00pm Name of Medical Power of Telegraph Service Rater anabella hull September 01, 2024 12:00pm Chief [...] LAB WORK September 28, 2024 5:00a m HAL[facility]-WAY LAB WORK September 29, 2024 5: 00am Admission H&P Exam September 30, 2024 5:50 pm [facility]-WAY LAB WORK October 05, 2024 5: 00am HAL[facility]-WAY LAB WORK October 06, 2024 5: 00am [...] LAB WORK September 28, 2024 5:00a m HALF-WAY LAB WORK September 29, 2024 5: 00am Admission H&P Exam September 30, 2024 5:50 pm HALF-WAY LAB WORK October 05, 2024 5: 00am HALF-WAY LAB WORK October 06, 2024 5: 00am [...] LAB WORK September 28, 2024 5:00a m HALF-WAY LAB WORK September 29, 2024 5: 00am Admission H&P Exam September 30, 2024 5:50 pm HALF-WAY LAB WORK October 05, 2024 5: 00am HALF-WAY LAB WORK October 06, 2024 5: 00am [...] LAB WORK September 28, 2024 5:00a m HALF-WAY LAB WORK September 29, 2024 5: 00am Admission H&P Exam September 30, 2024 5:50 pm HALF-WAY LAB WORK October 05, 2024 5: 00am HALF-WAY LAB WORK October 06, 2024 5: 00am New Concern October 20, 2024 2:54 pm ADMISSION, H&P October 25, 2024 2:2 2pm LABWORK October 31, 2024 5: 00am LABWORK November 02, 2024 5: 00am Reason for Referral Specialty Diagnoses / Procedures Referred By Contac t Referred To Contact [facility] Diagnoses Shuffling gait Ambulatory dysfunction Balance disorder Procedures CONSULT TO PHYSICAL THERAPY PHYSICAL THERAPY EVALUATION [facility] 45 MINS Luciana Cisneros MD [facility] [place] [address] [facility] [place] [address] [place] [address] Referral ID Status Reason Start Date Expiration Date Visits Requested Visits Authorized [id number] Pending Review Auto-Generat ed Referral 04/27/2024 04/27/2025 1 1 Specialty Diagnoses / Procedures Referred By Contac t Referred To Contact MR IMAGING Diagnoses Cognitive impairment, mild, so stated Procedures MRI BRAIN W QUANT WO IVCON MRI BRAIN BRAIN STEM W/O CONTRAST MATERIAL Luciana Cisneros MD [facility] [place] [address] [place] [id number] Referral ID Status Reason Start Date Expiration Date Visits Requested Visits Authorized [id number] Pending Review Auto-Generat ed Referral 04/27/2024 05/27/2025 1 1 Specialty Diagnoses / Procedures Referred By Contac t Referred To Contact Gerontology Diagnoses Dementia, unspecified dementia severity, unspecified dementia type, unspecified whether behavioral, psychotic, or mood disturbance or anxiety (HCC) Procedures CONSULT TO GERIATRICS OFFICE/OUTPATIENT [facility] MDM 60 MINUTES Stas Mora MD [address] [place] [id number] Referral ID Status Reason Start Date Expiration Date Visits Requested Visits Authorized [id number] Authorized PCP Requested Referral 04/25/2024 04/25/2025 1 1 Specialty Diagnoses / Procedures Referred By Contac t Referred To Contact MR IMAGING Diagnoses Cerebral infarction, unspecified mechanism (HCC) Procedures MRI BRAIN WO IVCON MRI BRAIN BRAIN STEM W/O CONTRAST MATERIAL Stas Mora MD [address] [place] [address] [place] [id number] Referral ID Status Reason Start Date Expiration Date Visits Requested Visits Authorized [id number] Pending Review Auto-Genera eli Referral Patient Cleared - Admin/Chair man/Directo r advise to proceed or did not respond 3 03/17/2024 1 1 Additional Source Comments (unrecognized sect ion and content) No Status Records FoundNo Status Records FoundNo Status Records FoundNo Status Records FoundNo Status Records FoundNo Status Records FoundNo Status Records Found INFORMATION SOURCE (unrecogn ized section and content) DATE CREATED AUTHOR 09/11/2017 [facility] DATE CREATED AUTHOR AUTHOR'S ORGANIZ ATION [facility]11[facility]2017 [facility] DATE CREATED AUTHOR AUTHOR'S ORGANIZ ATION 09/15/2017 [facility] DATE CREATED AUTHOR AUTHOR'S ORGANIZ ATION 08/12/2023 [facility] ([place] DATE CREATED AUTHOR AUTHOR'S ORGANIZ ATION 05/24/2024 [facility] DATE CREATED AUTHOR AUTHOR'S ORGANIZ ATION 11/27/2024 [facility] DATE CREATED AUTHOR AUTHOR'S ORGANIZ ATION 11/27/2024 [facility] Source Comments (unrecognize d section and content) In the event this informatio n is protected by the Federal Confidentiality of Alcohol and Drug Abuse Patient Records regulations: The Federal rules restrict any use of the information to criminally investigate or prosecute any alcohol or drug abuse patient.[facility] the event this information is protected by the Federal Confidentiality of Alcohol and Drug Abuse Patient Records regulations: The Federal rules restrict any use of the information to criminally investigate or prosecute any alcohol or drug abuse patient.[facility] HospitalIn the event this information is protected by the Federal Confidentiality of Alcohol and Drug Abuse Patient Records regulations: The Federal rules restrict any use of the information to criminally investigate or prosecute any alcohol or drug abuse patient.[facility] HospitalIn the event this information is protected by the Federal Confidentiality of Alcohol and Drug Abuse Patient Records regulations: The Federal rules restrict any use of the information to criminally investigate or prosecute any alcohol or drug abuse patient.[facility] HospitalIn the event this information is protected by the Federal Confidentiality of Alcohol and Drug Abuse Patient Records regulations: The Federal rules restrict any use of the information to criminally investigate or prosecute any alcohol or drug abuse patient.[facility] HospitalIn the event this information is protected by the Federal Confidentiality of Alcohol and Drug Abuse Patient Records regulations: The Federal rules restrict any use of the information to criminally investigate or prosecute any alcohol or drug abuse patient.[facility] HospitalIn the event this information is protected by the Federal Confidentiality of Alcohol and Drug Abuse Patient Records regulations: The Federal rules restrict any use of the information to criminally investigate or prosecute any alcohol or drug abuse patient.[facility] HospitalIn the event this information is protected by the Federal Confidentiality of Alcohol and Drug Abuse Patient Records regulations: The Federal rules restrict any use of the information to criminally investigate or prosecute any alcohol or drug abuse patient.[facility] HospitalIn the event this information is protected by the Federal Confidentiality of Alcohol and Drug Abuse Patient Records regulations: The Federal rules restrict any use of the information to criminally investigate or prosecute any alcohol or drug abuse patient.[facility] HospitalIn the event this information is protected by the Federal Confidentiality of Alcohol and Drug Abuse Patient Records regulations: The Federal rules restrict any use of the information to criminally investigate or prosecute any alcohol or drug abuse patient.[facility] HospitalIn the event this information is protected by the Federal Confidentiality of Alcohol and Drug Abuse Patient Records regulations: The Federal rules restrict any use of the information to criminally investigate or prosecute any alcohol or drug abuse patient.[facility] HospitalIn the event this information is protected by the Federal Confidentiality of Alcohol and Drug Abuse Patient Records regulations: The Federal rules restrict any use of the information to criminally investigate or prosecute any alcohol or drug abuse patient.[facility] HospitalIn the event this information is protected by the Federal Confidentiality of Alcohol and Drug Abuse Patient Records regulations: The Federal rules restrict any use of the information to criminally investigate or prosecute any alcohol or drug abuse patient.[facility] HospitalIn the event this information is protected by the Federal Confidentiality of Alcohol and Drug Abuse Patient Records regulations: The Federal rules restrict any use of the information to criminally investigate or prosecute any alcohol or drug abuse patient.[facility] HospitalIn the event this information is protected by the Federal Confidentiality of Alcohol and Drug Abuse Patient Records regulations: The Federal rules restrict any use of the information to criminally investigate or prosecute any alcohol or drug abuse patient.[facility] HospitalIn the event this information is protected by the Federal Confidentiality of Alcohol and Drug Abuse Patient Records regulations: The Federal rules restrict any use of the information to criminally investigate or prosecute any alcohol or drug abuse patient.[facility] HospitalIn the event this information is protected by the Federal Confidentiality of Alcohol and Drug Abuse Patient Records regulations: The Federal rules restrict any use of the information to criminally investigate or prosecute any alcohol or drug abuse patient.[facility] HospitalIn the event this information is protected by the Federal Confidentiality of Alcohol and Drug Abuse Patient Records regulations: The Federal rules restrict any use of the information to criminally investigate or prosecute any alcohol or drug abuse patient.[facility] HospitalIn the event this information is protected by the Federal Confidentiality of Alcohol and Drug Abuse Patient Records regulations: The Federal rules restrict any use of the information to criminally investigate or prosecute any alcohol or drug abuse patient.[facility] HospitalIn the event this information is protected by the Federal Confidentiality of Alcohol and Drug Abuse Patient Records regulations: The Federal rules restrict any use of the information to criminally investigate or prosecute any alcohol or drug abuse patient.[facility] HospitalIn the event this information is protected by the Federal Confidentiality of Alcohol and Drug Abuse Patient Records regulations: The Federal rules restrict any use of the information to criminally investigate or prosecute any alcohol or drug abuse patient.[facility] HospitalIn the event this information is protected by the Federal Confidentiality of Alcohol and Drug Abuse Patient Records regulations: The Federal rules restrict any use of the information to criminally investigate or prosecute any alcohol or drug abuse patient.[facility] HospitalIn the event this information is protected by the Federal Confidentiality of Alcohol and Drug Abuse Patient Records regulations: The Federal rules restrict any use of the information to criminally investigate or prosecute any alcohol or drug abuse patient.[facility] HospitalIn the event this information is protected by the Federal Confidentiality of Alcohol and Drug Abuse Patient Records regulations: The Federal rules restrict any use of the information to criminally investigate or prosecute any alcohol or drug abuse patient.[facility] HospitalIn the event this information is protected by the Federal Confidentiality of Alcohol and Drug Abuse Patient Records regulations: The Federal rules restrict any use of the information to criminally investigate or prosecute any alcohol or drug abuse patient.[facility] HospitalIn the event this information is protected by the Federal Confidentiality of Alcohol and Drug Abuse Patient Records regulations: The Federal rules restrict any use of the information to criminally investigate or prosecute any alcohol or drug abuse patient.[facility] HospitalIn the event this information is protected by the Federal Confidentiality of Alcohol and Drug Abuse Patient Records regulations: The Federal rules restrict any use of the information to criminally investigate or prosecute any alcohol or drug abuse patient.[facility] HospitalIn the event this information is protected by the Federal Confidentiality of Alcohol and Drug Abuse Patient Records regulations: The Federal rules restrict any use of the information to criminally investigate or prosecute any alcohol or drug abuse patient.[facility] HospitalIn the event this information is protected by the Federal Confidentiality of Alcohol and Drug Abuse Patient Records regulations: The Federal rules restrict any use of the information to criminally investigate or prosecute any alcohol or drug abuse patient.[facility] HospitalIn the event this information is protected by the Federal Confidentiality of Alcohol and Drug Abuse Patient Records regulations: The Federal rules restrict any use of the information to criminally investigate or prosecute any alcohol or drug abuse patient.[facility] HospitalIn the event this information is protected by the Federal Confidentiality of Alcohol and Drug Abuse Patient Records regulations: The Federal rules restrict any use of the information to criminally investigate or prosecute any alcohol or drug abuse patient.[facility] HospitalIn the event this information is protected by the Federal Confidentiality of Alcohol and Drug Abuse Patient Records regulations: The Federal rules restrict any use of the information to criminally investigate or prosecute any alcohol or drug abuse patient.[facility] the event this information is protected by the Federal Confidentiality of Alcohol and Drug Abuse Patient Records regulations: The Federal rules restrict any use of the information to criminally investigate or prosecute any alcohol or drug abuse patient.[facility] HospitalIn the event this information is protected by the Federal Confidentiality of Alcohol and Drug Abuse Patient Records regulations: The Federal rules restrict any use of the information to criminally investigate or prosecute any alcohol or drug abuse patient.[facility] HospitalIn the event this information is protected by the Federal Confidentiality of Alcohol and Drug Abuse Patient Records regulations: The Federal rules restrict any use of the information to criminally investigate or prosecute any alcohol or drug abuse patient.[facility] HospitalIn the event this information is protected by the Federal Confidentiality of Alcohol and Drug Abuse Patient Records regulations: The Federal rules restrict any use of the information to criminally investigate or prosecute any alcohol or drug abuse patient.[facility] HospitalIn the event this information is protected by the Federal Confidentiality of Alcohol and Drug Abuse Patient Records regulations: The Federal rules restrict any use of the information to criminally investigate or prosecute any alcohol or drug abuse patient.[facility] HospitalIn the event this information is protected by the Federal Confidentiality of Alcohol and Drug Abuse Patient Records regulations: The Federal rules restrict any use of the information to criminally investigate or prosecute any alcohol or drug abuse patient.[facility] HospitalIn the event this information is protected by the Federal Confidentiality of Alcohol and Drug Abuse Patient Records regulations: The Federal rules restrict any use of the information to criminally investigate or prosecute any alcohol or drug abuse patient.[facility] HospitalIn the event this information is protected by the Federal Confidentiality of Alcohol and Drug Abuse Patient Records regulations: The Federal rules restrict any use of the information to criminally investigate or prosecute any alcohol or drug abuse patient.[facility] HospitalIn the event this information is protected by the Federal Confidentiality of Alcohol and Drug Abuse Patient Records regulations: The Federal rules restrict any use of the information to criminally investigate or prosecute any alcohol or drug abuse patient.[facility] HospitalIn the event this information is protected by the Federal Confidentiality of Alcohol and Drug Abuse Patient Records regulations: The Federal rules restrict any use of the information to criminally investigate or prosecute any alcohol or drug abuse patient.[facility] HospitalIn the event this information is protected by the Federal Confidentiality of Alcohol and Drug Abuse Patient Records regulations: The Federal rules restrict any use of the information to criminally investigate or prosecute any alcohol or drug abuse patient.[facility] HospitalIn the event this information is protected by the Federal Confidentiality of Alcohol and Drug Abuse Patient Records regulations: The Federal rules restrict any use of the information to criminally investigate or prosecute any alcohol or drug abuse patient.[facility] HospitalIn the event this information is protected by the Federal Confidentiality of Alcohol and Drug Abuse Patient Records regulations: The Federal rules restrict any use of the information to criminally investigate or prosecute any alcohol or drug abuse patient.[facility] HospitalIn the event this information is protected by the Federal Confidentiality of Alcohol and Drug Abuse Patient Records regulations: The Federal rules restrict any use of the information to criminally investigate or prosecute any alcohol or drug abuse patient.[facility] HospitalIn the event this information is protected by the Federal Confidentiality of Alcohol and Drug Abuse Patient Records regulations: The Federal rules restrict any use of the information to criminally investigate or prosecute any alcohol or drug abuse patient.[facility] HospitalIn the event this information is protected by the Federal Confidentiality of Alcohol and Drug Abuse Patient Records regulations: The Federal rules restrict any use of the information to criminally investigate or prosecute any alcohol or drug abuse patient.[facility] HospitalIn the event this information is protected by the Federal Confidentiality of Alcohol and Drug Abuse Patient Records regulations: The Federal rules restrict any use of the information to criminally investigate or prosecute any alcohol or drug abuse patient.[facility] HospitalIn the event this information is protected by the Federal Confidentiality of Alcohol and Drug Abuse Patient Records regulations: The Federal rules restrict any use of the information to criminally investigate or prosecute any alcohol or drug abuse patient.[facility] HospitalIn the event this information is protected by the Federal Confidentiality of Alcohol and Drug Abuse Patient Records regulations: The Federal rules restrict any use of the information to criminally investigate or prosecute any alcohol or drug abuse patient.[facility] HospitalIn the event this information is protected by the Federal Confidentiality of Alcohol and Drug Abuse Patient Records regulations: The Federal rules restrict any use of the information to criminally investigate or prosecute any alcohol or drug abuse patient.[facility] HospitalIn the event this information is protected by the Federal Confidentiality of Alcohol and Drug Abuse Patient Records regulations: The Federal rules restrict any use of the information to criminally investigate or prosecute any alcohol or drug abuse patient.[facility] HospitalIn the event this information is protected by the Federal Confidentiality of Alcohol and Drug Abuse Patient Records regulations: The Federal rules restrict any use of the information to criminally investigate or prosecute any alcohol or drug abuse patient.[facility] HospitalIn the event this information is protected by the Federal Confidentiality of Alcohol and Drug Abuse Patient Records regulations: The Federal rules restrict any use of the information to criminally investigate or prosecute any alcohol or drug abuse patient.[facility] HospitalIn the event this information is protected by the Federal Confidentiality of Alcohol and Drug Abuse Patient Records regulations: The Federal rules restrict any use of the information to criminally investigate or prosecute any alcohol or drug abuse patient.[facility] HospitalIn the event this information is protected by the Federal Confidentiality of Alcohol and Drug Abuse Patient Records regulations: The Federal rules restrict any use of the information to criminally investigate or prosecute any alcohol or drug abuse patient.[facility] HospitalIn the event this information is protected by the Federal Confidentiality of Alcohol and Drug Abuse Patient Records regulations: The Federal rules restrict any use of the information to criminally investigate or prosecute any alcohol or drug abuse patient.[facility] HospitalIn the event this information is protected by the Federal Confidentiality of Alcohol and Drug Abuse Patient Records regulations: The Federal rules restrict any use of the information to criminally investigate or prosecute any alcohol or drug abuse patient.[facility] HospitalIn the event this information is protected by the Federal Confidentiality of Alcohol and Drug Abuse Patient Records regulations: The Federal rules restrict any use of the information to criminally investigate or prosecute any alcohol or drug abuse patient.[facility] HospitalIn the event this information is protected by the Federal Confidentiality of Alcohol and Drug Abuse Patient Records regulations: The Federal rules restrict any use of the information to criminally investigate or prosecute any alcohol or drug abuse patient.[facility] HospitalIn the event this information is protected by the Federal Confidentiality of Alcohol and Drug Abuse Patient Records regulations: The Federal rules restrict any use of the information to criminally investigate or prosecute any alcohol or drug abuse patient.[facility] HospitalIn the event this information is protected by the Federal Confidentiality of Alcohol and Drug Abuse Patient Records regulations: The Federal rules restrict any use of the information to criminally investigate or prosecute any alcohol or drug abuse patient.[facility] HospitalIn the event this information is protected by the Federal Confidentiality of Alcohol and Drug Abuse Patient Records regulations: The Federal rules restrict any use of the information to criminally investigate or prosecute any alcohol or drug abuse patient.[facility] HospitalIn the event this information is protected by the Federal Confidentiality of Alcohol and Drug Abuse Patient Records regulations: The Federal rules restrict any use of the information to criminally investigate or prosecute any alcohol or drug abuse patient.[facility] HospitalIn the event this information is protected by the Federal Confidentiality of Alcohol and Drug Abuse Patient Records regulations: The Federal rules restrict any use of the information to criminally investigate or prosecute any alcohol or drug abuse patient.[facility] HospitalIn the event this information is protected by the Federal Confidentiality of Alcohol and Drug Abuse Patient Records regulations: The Federal rules restrict any use of the information to criminally investigate or prosecute any alcohol or drug abuse patient.[facility] HospitalIn the event this information is protected by the Federal Confidentiality of Alcohol and Drug Abuse Patient Records regulations: The Federal rules restrict any use of the information to criminally investigate or prosecute any alcohol or drug abuse patient.[facility] HospitalIn the event this information is protected by the Federal Confidentiality of Alcohol and Drug Abuse Patient Records regulations: The Federal rules restrict any use of the information to criminally investigate or prosecute any alcohol or drug abuse patient.[facility] HospitalIn the event this information is protected by the Federal Confidentiality of Alcohol and Drug Abuse Patient Records regulations: The Federal rules restrict any use of the information to criminally investigate or prosecute any alcohol or drug abuse patient.[facility] HospitalIn the event this information is protected by the Federal Confidentiality of Alcohol and Drug Abuse Patient Records regulations: The Federal rules restrict any use of the information to criminally investigate or prosecute any alcohol or drug abuse patient.[facility] HospitalIn the event this information is protected by the Federal Confidentiality of Alcohol and Drug Abuse Patient Records regulations: The Federal rules restrict any use of the information to criminally investigate or prosecute any alcohol or drug abuse patient.[facility] HospitalIn the event this information is protected by the Federal Confidentiality of Alcohol and Drug Abuse Patient Records regulations: The Federal rules restrict any use of the information to criminally investigate or prosecute any alcohol or drug abuse patient.[facility] HospitalIn the event this information is protected by the Federal Confidentiality of Alcohol and Drug Abuse Patient Records regulations: The Federal rules restrict any use of the information to criminally investigate or prosecute any alcohol or drug abuse patient.[facility] HospitalIn the event this information is protected by the Federal Confidentiality of Alcohol and Drug Abuse Patient Records regulations: The Federal rules restrict any use of the information to criminally investigate or prosecute any alcohol or drug abuse patient.[facility] HospitalIn the event this information is protected by the Federal Confidentiality of Alcohol and Drug Abuse Patient Records regulations: The Federal rules restrict any use of the information to criminally investigate or prosecute any alcohol or drug abuse patient.[facility] HospitalIn the event this information is protected by the Federal Confidentiality of Alcohol and Drug Abuse Patient Records regulations: The Federal rules restrict any use of the information to criminally investigate or prosecute any alcohol or drug abuse patient.[facility] HospitalIn the event this information is protected by the Federal Confidentiality of Alcohol and Drug Abuse Patient Records regulations: The Federal rules restrict any use of the information to criminally investigate or prosecute any alcohol or drug abuse patient.[facility] HospitalIn the event this information is protected by the Federal Confidentiality of Alcohol and Drug Abuse Patient Records regulations: The Federal rules restrict any use of the information to criminally investigate or prosecute any alcohol or drug abuse patient.[facility] HospitalIn the event this information is protected by the Federal Confidentiality of Alcohol and Drug Abuse Patient Records regulations: The Federal rules restrict any use of the information to criminally investigate or prosecute any alcohol or drug abuse patient.[facility] HospitalIn the event this information is protected by the Federal Confidentiality of Alcohol and Drug Abuse Patient Records regulations: The Federal rules restrict any use of the information to criminally investigate or prosecute any alcohol or drug abuse patient.[facility] HospitalIn the event this information is protected by the Federal Confidentiality of Alcohol and Drug Abuse Patient Records regulations: The Federal rules restrict any use of the information to criminally investigate or prosecute any alcohol or drug abuse patient.[facility] the event this information is protected by the Federal Confidentiality of Alcohol and Drug Abuse Patient Records regulations: The Federal rules restrict any use of the information to criminally investigate or prosecute any alcohol or drug abuse patient.[facility] HospitalIn the event this information is protected by the Federal Confidentiality of Alcohol and Drug Abuse Patient Records regulations: The Federal rules restrict any use of the information to criminally investigate or prosecute any alcohol or drug abuse patient.[facility] HospitalIn the event this information is protected by the Federal Confidentiality of Alcohol and Drug Abuse Patient Records regulations: The Federal rules restrict any use of the information to criminally investigate or prosecute any alcohol or drug abuse patient.[facility] HospitalIn the event this information is protected by the Federal Confidentiality of Alcohol and Drug Abuse Patient Records regulations: The Federal rules restrict any use of the information to criminally investigate or prosecute any alcohol or drug abuse patient.[facility] HospitalIn the event this information is protected by the Federal Confidentiality of Alcohol and Drug Abuse Patient Records regulations: The Federal rules restrict any use of the information to criminally investigate or prosecute any alcohol or drug abuse patient.[facility] HospitalIn the event this information is protected by the Federal Confidentiality of Alcohol and Drug Abuse Patient Records regulations: The Federal rules restrict any use of the information to criminally investigate or prosecute any alcohol or drug abuse patient.[facility] HospitalIn the event this information is protected by the Federal Confidentiality of Alcohol and Drug Abuse Patient Records regulations: The Federal rules restrict any use of the information to criminally investigate or prosecute any alcohol or drug abuse patient.[facility] HospitalIn the event this information is protected by the Federal Confidentiality of Alcohol and Drug Abuse Patient Records regulations: The Federal rules restrict any use of the information to criminally investigate or prosecute any alcohol or drug abuse patient.[facility] HospitalIn the event this information is protected by the Federal Confidentiality of Alcohol and Drug Abuse Patient Records regulations: The Federal rules restrict any use of the information to criminally investigate or prosecute any alcohol or drug abuse patient.[facility] HospitalIn the event this information is protected by the Federal Confidentiality of Alcohol and Drug Abuse Patient Records regulations: The Federal rules restrict any use of the information to criminally investigate or prosecute any alcohol or drug abuse patient.[facility] HospitalIn the event this information is protected by the Federal Confidentiality of Alcohol and Drug Abuse Patient Records regulations: The Federal rules restrict any use of the information to criminally investigate or prosecute any alcohol or drug abuse patient.[facility] HospitalIn the event this information is protected by the Federal Confidentiality of Alcohol and Drug Abuse Patient Records regulations: The Federal rules restrict any use of the information to criminally investigate or prosecute any alcohol or drug abuse patient.[facility] HospitalIn the event this information is protected by the Federal Confidentiality of Alcohol and Drug Abuse Patient Records regulations: The Federal rules restrict any use of the information to criminally investigate or prosecute any alcohol or drug abuse patient.[facility] HospitalIn the event this information is protected by the Federal Confidentiality of Alcohol and Drug Abuse Patient Records regulations: The Federal rules restrict any use of the information to criminally investigate or prosecute any alcohol or drug abuse patient.[facility] HospitalIn the event this information is protected by the Federal Confidentiality of Alcohol and Drug Abuse Patient Records regulations: The Federal rules restrict any use of the information to criminally investigate or prosecute any alcohol or drug abuse patient.[facility] HospitalIn the event this information is protected by the Federal Confidentiality of Alcohol and Drug Abuse Patient Records regulations: The Federal rules restrict any use of the information to criminally investigate or prosecute any alcohol or drug abuse patient.[facility] HospitalIn the event this information is protected by the Federal Confidentiality of Alcohol and Drug Abuse Patient Records regulations: The Federal rules restrict any use of the information to criminally investigate or prosecute any alcohol or drug abuse patient.[facility] HospitalIn the event this information is protected by the Federal Confidentiality of Alcohol and Drug Abuse Patient Records regulations: The Federal rules restrict any use of the information to criminally investigate or prosecute any alcohol or drug abuse patient.[facility] HospitalIn the event this information is protected by the Federal Confidentiality of Alcohol and Drug Abuse Patient Records regulations: The Federal rules restrict any use of the information to criminally investigate or prosecute any alcohol or drug abuse patient.[facility] HospitalIn the event this information is protected by the Federal Confidentiality of Alcohol and Drug Abuse Patient Records regulations: The Federal rules restrict any use of the information to criminally investigate or prosecute any alcohol or drug abuse patient.[facility] HospitalIn the event this information is protected by the Federal Confidentiality of Alcohol and Drug Abuse Patient Records regulations: The Federal rules restrict any use of the information to criminally investigate or prosecute any alcohol or drug abuse patient.[facility] HospitalIn the event this information is protected by the Federal Confidentiality of Alcohol and Drug Abuse Patient Records regulations: The Federal rules restrict any use of the information to criminally investigate or prosecute any alcohol or drug abuse patient.[facility] HospitalIn the event this information is protected by the Federal Confidentiality of Alcohol and Drug Abuse Patient Records regulations: The Federal rules restrict any use of the information to criminally investigate or prosecute any alcohol or drug abuse patient.[facility] HospitalIn the event this information is protected by the Federal Confidentiality of Alcohol and Drug Abuse Patient Records regulations: The Federal rules restrict any use of the information to criminally investigate or prosecute any alcohol or drug abuse patient.[facility] HospitalIn the event this information is protected by the Federal Confidentiality of Alcohol and Drug Abuse Patient Records regulations: The Federal rules restrict any use of the information to criminally investigate or prosecute any alcohol or drug abuse patient.[facility] HospitalIn the event this information is protected by the Federal Confidentiality of Alcohol and Drug Abuse Patient Records regulations: The Federal rules restrict any use of the information to criminally investigate or prosecute any alcohol or drug abuse patient.[facility] HospitalIn the event this information is protected by the Federal Confidentiality of Alcohol and Drug Abuse Patient Records regulations: The Federal rules restrict any use of the information to criminally investigate or prosecute any alcohol or drug abuse patient.[facility] HospitalIn the event this information is protected by the Federal Confidentiality of Alcohol and Drug Abuse Patient Records regulations: The Federal rules restrict any use of the information to criminally investigate or prosecute any alcohol or drug abuse patient.[facility] HospitalIn the event this information is protected by the Federal Confidentiality of Alcohol and Drug Abuse Patient Records regulations: The Federal rules restrict any use of the information to criminally investigate or prosecute any alcohol or drug abuse patient.[facility] HospitalIn the event this information is protected by the Federal Confidentiality of Alcohol and Drug Abuse Patient Records regulations: The Federal rules restrict any use of the information to criminally investigate or prosecute any alcohol or drug abuse patient.[facility] HospitalIn the event this information is protected by the Federal Confidentiality of Alcohol and Drug Abuse Patient Records regulations: The Federal rules restrict any use of the information to criminally investigate or prosecute any alcohol or drug abuse patient.[facility] HospitalIn the event this information is protected by the Federal Confidentiality of Alcohol and Drug Abuse Patient Records regulations: The Federal rules restrict any use of the information to criminally investigate or prosecute any alcohol or drug abuse patient.[facility] HospitalIn the event this information is protected by the Federal Confidentiality of Alcohol and Drug Abuse Patient Records regulations: The Federal rules restrict any use of the information to criminally investigate or prosecute any alcohol or drug abuse patient.[facility] HospitalIn the event this information is protected by the Federal Confidentiality of Alcohol and Drug Abuse Patient Records regulations: The Federal rules restrict any use of the information to criminally investigate or prosecute any alcohol or drug abuse patient.[facility] HospitalIn the event this information is protected by the Federal Confidentiality of Alcohol and Drug Abuse Patient Records regulations: The Federal rules restrict any use of the information to criminally investigate or prosecute any alcohol or drug abuse patient.[facility] HospitalIn the event this information is protected by the Federal Confidentiality of Alcohol and Drug Abuse Patient Records regulations: The Federal rules restrict any use of the information to criminally investigate or prosecute any alcohol or drug abuse patient.[facility] HospitalIn the event this information is protected by the Federal Confidentiality of Alcohol and Drug Abuse Patient Records regulations: The Federal rules restrict any use of the information to criminally investigate or prosecute any alcohol or drug abuse patient.[facility] HospitalIn the event this information is protected by the Federal Confidentiality of Alcohol and Drug Abuse Patient Records regulations: The Federal rules restrict any use of the information to criminally investigate or prosecute any alcohol or drug abuse patient.[facility] HospitalIn the event this information is protected by the Federal Confidentiality of Alcohol and Drug Abuse Patient Records regulations: The Federal rules restrict any use of the information to criminally investigate or prosecute any alcohol or drug abuse patient.[facility] HospitalIn the event this information is protected by the Federal Confidentiality of Alcohol and Drug Abuse Patient Records regulations: The Federal rules restrict any use of the information to criminally investigate or prosecute any alcohol or drug abuse patient.[facility] HospitalIn the event this information is protected by the Federal Confidentiality of Alcohol and Drug Abuse Patient Records regulations: The Federal rules restrict any use of the information to criminally investigate or prosecute any alcohol or drug abuse patient.[facility] HospitalIn the event this information is protected by the Federal Confidentiality of Alcohol and Drug Abuse Patient Records regulations: The Federal rules restrict any use of the information to criminally investigate or prosecute any alcohol or drug abuse patient.[facility] HospitalIn the event this information is protected by the Federal Confidentiality of Alcohol and Drug Abuse Patient Records regulations: The Federal rules restrict any use of the information to criminally investigate or prosecute any alcohol or drug abuse patient.[facility] HospitalIn the event this information is protected by the Federal Confidentiality of Alcohol and Drug Abuse Patient Records regulations: The Federal rules restrict any use of the information to criminally investigate or prosecute any alcohol or drug abuse patient.[facility] HospitalIn the event this information is protected by the Federal Confidentiality of Alcohol and Drug Abuse Patient Records regulations: The Federal rules restrict any use of the information to criminally investigate or prosecute any alcohol or drug abuse patient.[facility] HospitalIn the event this information is protected by the Federal Confidentiality of Alcohol and Drug Abuse Patient Records regulations: The Federal rules restrict any use of the information to criminally investigate or prosecute any alcohol or drug abuse patient.[facility] HospitalIn the event this information is protected by the Federal Confidentiality of Alcohol and Drug Abuse Patient Records regulations: The Federal rules restrict any use of the information to criminally investigate or prosecute any alcohol or drug abuse patient.[facility] HospitalIn the event this information is protected by the Federal Confidentiality of Alcohol and Drug Abuse Patient Records regulations: The Federal rules restrict any use of the information to criminally investigate or prosecute any alcohol or drug abuse patient.[facility] HospitalIn the event this information is protected by the Federal Confidentiality of Alcohol and Drug Abuse Patient Records regulations: The Federal rules restrict any use of the information to criminally investigate or prosecute any alcohol or drug abuse patient.[facility] HospitalIn the event this information is protected by the Federal Confidentiality of Alcohol and Drug Abuse Patient Records regulations: The Federal rules restrict any use of the information to criminally investigate or prosecute any alcohol or drug abuse patient.[facility]In the event this information is protected by the Federal Confidentiality of Alcohol and Drug Abuse Patient Records regulations: The Federal rules restrict any use of the information to criminally investigate or prosecute any alcohol or drug abuse patient.[facility] HospitalIn the event this information is protected by the Federal Confidentiality of Alcohol and Drug Abuse Patient Records regulations: The Federal rules restrict any use of the information to criminally investigate or prosecute any alcohol or drug abuse patient.[facility] Reason for Visit (unrecogniz ed section [...] STEM W/O CONTRAST MATERIAL Stas Mora MD [address] [place] [address] [place] [address] Referral ID Status Reason Start Date Expiration Date V isits Requested Visits Authorized [id number] Closed Auto-Generat ed Referral Patient Cleared - [...] disturbance or anxiety ([facility]) Procedures CONSULT TO GERIATRICS OFFICE/OUTPATIENT NEW HIGH MDM 60 MINUTES Stas Mora MD [address] [place] [address] Referral ID Status Reason Start Date Expiration Date V isits Requested Visits Authorized [id number] Closed PCP Requested Referral 04/25/2024 04/25/2025 1 [...] Care Teams (unrecognized sec tion and content) [employer] Consultant Relationship Specialty Start Date End Date Stas Mora MD [address] [place], [place] [id number] PCP - General 08/02/08, Pharmacist [id number] [place] [address] Pharmacist Pharmacy 10/19/19 [employer] Consultant Relationship Specialty Start Date End Date Stas Mora MD [address] [place] [address] PCP - General 08/02/08, Pharmacist [id number] [place] [address] Pharmacist Pharmacy 10/19/19 [employer] Consultant Relationship Specialty Start Date End Date Stas Mora MD [address] [place] [address] PCP - General 08/02/08, Pharmacist [id number] [place] [address] Pharmacist Pharmacy 10/19/19 [employer] Consultant Relationship Specialty Start Date End Date Stas Mora MD [address] [place] [address] PCP - General 08/02/08, Pharmacist [phone] [place] [address] Pharmacist Pharmacy 10/19/19 [employer] Consultant Relationship Specialty Start Date End Date Stas Mora MD [address] [facility] [place] [address] PCP - General 08/02/08, Pharmacist [phone] [facility] [place] [address] Pharmacist Pharmacy 10/19/19 [employer] Consultant Relationship Specialty Start Date End Date Stas Mora MD [address] [facility] [place] [address] PCP - General 08/02/08, Pharmacist [id number] [facility] [place] [address] Pharmacist Pharmacy 10/19/19 [employer] Consultant Relationship Specialty Start Date End Date Stas Mora MD [address] [facility] [place] [address] PCP - General 08/02/08, Pharmacist [phone] [facility] [place] [address] Pharmacist Pharmacy 10/19/19 [employer] Consultant Relationship Specialty Start Date End Date Stas Mora MD [address] [facility] [place] [address] PCP - General 08/02/08, Pharmacist [id number] [facility] [place] [address] Pharmacist Pharmacy 10/19/19 [employer] Consultant Relationship Specialty Start Date End Date Stas Mora MD [address] [facility] [place] [address] PCP - General 08/02/08, Pharmacist [id number] [facility] [place] [address] Pharmacist Pharmacy 10/19/19 [employer] Consultant Relationship Specialty Start Date End Date Stas Mora MD [address] [facility] [place] [address] PCP - General 08/02/08, Pharmacist [id number] [place] [address] Pharmacist Pharmacy 10/19/19 [employer] Consultant Relationship Specialty Start Date End Date Stas Mora MD [address] [facility] [place] [address] PCP - General 08/02/08, Pharmacist [phone] [facility] [place] [address] Pharmacist Pharmacy 10/19/19 [employer] Consultant Relationship Specialty Start Date End Date Stas Mora MD [address] [facility] [place] [address] PCP - General 08/02/08, Pharmacist [id number] [facility] [place] [address] Pharmacist Pharmacy 10/19/19 [employer] Consultant Relationship Specialty Start Date End Date Stas Mora MD [address] [facility] [place] [address] PCP - General 08/02/08, Pharmacist [phone] [facility] [place] [address] Pharmacist Pharmacy 10/19/19 [employer] Consultant Relationship Specialty Start Date End Date Stas Mora MD [address] [facility] [place] [address] PCP - General 08/02/08, Pharmacist [id number] [facility] [place] [address] Pharmacist Pharmacy 10/19/19 [employer] Consultant Relationship Specialty Start Date End Date Stas Mora MD [address] [facility] [id number] PCP - General 08/02/08, Pharmacist [id number] [place] [address] Pharmacist Pharmacy 10/19/19 Workday Financials Consultant Relationship Specialty Start Date End Date Stas Mora MD [address] [facility] [place] [address] PCP - General 08/02/08, Pharmacist [phone] [facility] [place] [address] Pharmacist Pharmacy 10/19/19 Workday Financials Consultant Relationship Specialty Start Date End Date Stas Mora MD [address] [place] [address] PCP - General 08/02/08, Pharmacist [address] [place] [address] Pharmacist Pharmacy 10/19/19 Workday Financials Consultant Relationship Specialty Start Date End Date Stas Mora MD [address] [place] [address] PCP - General 08/02/08, Pharmacist [phone] [place] [address] Pharmacist Pharmacy 10/19/19 Workday Financials Consultant Relationship Specialty Start Date End Date Stas Mora MD [address] [place] [address] PCP - General 08/02/08, Pharmacist [phone] [place] [address] Pharmacist Pharmacy 10/19/19 Workday Financials Consultant Relationship Specialty Start Date End Date Stas Mora MD [address] [facility] [place] [address] PCP - General 08/02/08, Pharmacist [address] [place] [address] Pharmacist Pharmacy 10/19/19 Workday Financials Consultant Relationship Specialty Start Date End Date Stas Mora MD [address] [place] [address] PCP - General 08/02/08, Pharmacist [id number] [facility] [place] [address] Pharmacist Pharmacy 10/19/19 Team Status: Active Member Role Status Dates Dr. Stas Mora MD Family Provider Active Dr. Stas Mora MD Primary Care Provider Active Team Status: Inactive Member Role Status Dates Dr. Stas Mora MD Primary Care Provider Active Dr. Brian Cunningham , Emergency Provider Active Workday Financials Consultant Relationship Specialty Start Date End Date Stas Mora MD [address] [facility] [place] [address] PCP - General 08/02/08, Pharmacist [address]177 [facility] [place] [address] Pharmacist Pharmacy 10/19/19 Workday Financials Consultant Relationship Specialty Start Date End Date Stas Mora MD [address] [place] [address] PCP - General 08/02/08, Pharmacist 15358 [facility] [place] [address] Pharmacist Pharmacy 10/19/19 Workday Financials Consultant Relationship Specialty Start Date End Date Stas Mora MD [address] [facility] [place] [address] PCP - General 08/02/08, Pharmacist [address]40 [facility] [place] [address] Pharmacist Pharmacy 10/19/19 Workday Financials Consultant Relationship Specialty Start Date End Date Stas Mora MD [address] [facility] [place] [address] PCP - General 08/02/08, Pharmacist [address]78 [facility] [place] [address] Pharmacist Pharmacy 10/19/19 Workday Financials Consultant Relationship Specialty Start Date End Date Stas Mora MD [address] [place] [address] PCP - General 08/02/08, Pharmacist [address] [place] [address] Pharmacist Pharmacy 10/19/19 Workday Financials Consultant Relationship Specialty Start Date End Date Stas Mora MD [address] [place] [address] PCP - General 08/02/08, Pharmacist [address] [place] [address] Pharmacist Pharmacy 10/19/19 Workday Financials Consultant Relationship Specialty Start Date End Date Stas Mora MD [address] [place] [address] PCP - General 08/02/08, Pharmacist [address] [place] [address] Pharmacist Pharmacy 10/19/19 Workday Financials Consultant Relationship Specialty Start Date End Date Stas Mora MD [address] [place] [address] PCP - General 08/02/08, Pharmacist [address] [place] [address] Pharmacist Pharmacy 10/19/19 Workday Financials Consultant Relationship Specialty Start Date End Date Stas Mora MD [address] [place] [address] PCP - General 08/02/08, Pharmacist [address] [place] [address] Pharmacist Pharmacy 10/19/19 Workday Financials Consultant Relationship Specialty Start Date End Date Stas Mora MD [address] [place] [address] PCP - General 08/02/08, Pharmacist [address] [place] [address] Pharmacist Pharmacy 10/19/19 Workday Financials Consultant Relationship Specialty Start Date End Date Stas Mora MD [address] [facility] [place] [address] PCP - General 08/02/08, Pharmacist [address]129 [place] [address] Pharmacist Pharmacy 10/19/19 Workday Financials Consultant Relationship Specialty Start Date End Date Stas Mora MD [address] [place] [address] PCP - General 08/02/08, Pharmacist [address] [place] [address] Pharmacist Pharmacy 10/19/19 Workday Financials Consultant Relationship Specialty Start Date End Date Stas Mora MD [address] [place] [address] PCP - General 08/02/08, Pharmacist [address]678 [place] [address] Pharmacist Pharmacy 10/19/19 Workday Financials Consultant Relationship Specialty Start Date End Date Stas Mora MD [address] [place] [address] PCP - General 08/02/08, Pharmacist [address]770 [place] [address] Pharmacist Pharmacy 10/19/19 Workday Financials Consultant Relationship Specialty Start Date End Date Stas Moar MD [address] [place] [address] PCP - General 08/02/08, Pharmacist [address] [place] [address] Pharmacist Pharmacy 10/19/19 Workday Financials Consultant Relationship Specialty Start Date End Date Stas Mora MD [address] [place] [address] PCP - General 08/02/08, Pharmacist [address]888 [facility] [place] [address] Pharmacist Pharmacy 10/19/19 Workday Financials Consultant Relationship Specialty Start Date End Date Stas Mora MD [address] [place] [address] PCP - General 08/02/08, Pharmacist [address] [place] [address] Pharmacist Pharmacy 10/19/19 Workday Financials Consultant Relationship Specialty Start Date End Date Stas Mora MD [address] [place] [address] PCP - General 08/02/08, Pharmacist [address]136 [place] [address] Pharmacist Pharmacy 10/19/19 Workday Financials Consultant Relationship Specialty Start Date End Date Stas Mora MD [address] [place] [address] PCP - General 08/02/08, Pharmacist 90879 [facility] [place] [address] Pharmacist Pharmacy 10/19/19 Workday Financials Consultant Relationship Specialty Start Date End Date Stas Mora MD [address] [place] [address] PCP - General 08/02/08, Pharmacist [address] [place] [address] Pharmacist Pharmacy 10/19/19 Workday Financials Consultant Relationship Specialty Start Date End Date Stas Mora MD [address] [facility] [place] [address] PCP - General 08/02/08, Pharmacist 82177 [facility] [place] [address] Pharmacist Pharmacy 10/19/19 Workday Financials Consultant Relationship Specialty Start Date End Date Stas Mora MD [address] [facility] [place] [address] PCP - General 08/02/08, Pharmacist [address] [place] [address] Pharmacist Pharmacy 10/19/19 Jenna Fitzpatrick, MUTUEL MACHINE OPERATOR.ATTORNEY LAWYER [address] [place] [address] Asphalt Mixer Family Medicine 02/28/24 Workday Financials Consultant Relationship Specialty Start Date End Date Stas Mora MD [address] [place] [address] PCP - General 08/02/08, Pharmacist [address]52 [facility] [place] [address] Pharmacist Pharmacy 10/19/19 Jenna Fitzpatrick, MUTUEL MACHINE OPERATOR.ATTORNEY LAWYER [address] [facility] [place] [address] Asphalt Mixer Family Medicine 02/28/24 Elvis Kearney, MUTUEL MACHINE OPERATOR.ATTORNEY LAWYER [address] [facility] [place] [address] Asphalt Mixer Family Medicine 03/08/24 Workday Financials Consultant Relationship Specialty Start Date End Date Stas Mora MD [address] [facility] [place] [address] PCP - General 08/02/08, Pharmacist [address]405 [facility] [place] [address] Pharmacist Pharmacy 10/19/19 Jenna Fitzpatrick APRN.ATTORNEY LAWYER [address] [place] [address] Asphalt Mixer Family [facility] 02/28/24 Elvis Kearney APRN.ATTORNEY LAWYER [address] [place] [address] Asphalt Mixer Family Medicine 03/08/24 Workday Financials Consultant Relationship Specialty Start Date End Date Stas Mora MD [address] [place] [address] PCP - General 08/02/08, Pharmacist [address] [place] [address] Pharmacist Pharmacy 10/19/19 Jenna Fitzpatrick APRN.ATTORNEY LAWYER [address] [place] [address] [facility] 02/28/24 Elvis Kearney MUTUEL MACHINE OPERATOR.ATTORNEY LAWYER [address] [place] [address] [facility] 03/08/24 Workday Financials Consultant Relationship Specialty Start Date End Date Stas Mora MD [address] [place] [address] PCP - General 08/02/08, Pharmacist 27531 [facility] [place] [address] Pharmacist Pharmacy 10/19/19 Jenna Fitzpatrick APRN.ATTORNEY LAWYER [address] [place] [address] Asphalt Mixer Family [facility] 02/28/24 Elvis Kearney APRN.ATTORNEY LAWYER [address] [facility] [place] [address] Asphalt Mixer Family Medicine 03/08/24 Workday Financials Consultant Relationship Specialty Start Date End Date Stas Mora MD [address] [place] [address] PCP - General 08/02/08, Pharmacist [address] [place] [address] Pharmacist Pharmacy 10/19/19 Jenna Fitzpatrick APRN.ATTORNEY LAWYER [address] [place] [address] Asphalt Mixer Family [facility] 02/28/24 Elvis Kearney, JETHRO.ATTORNEY LAWYER [address] [place] [address] Asphalt Mixer Family [facility] 03/08/24 Workday Financials Consultant Relationship Specialty Start Date End Date Stas Mora MD [address] [place] [address] PCP - General 08/02/08, Pharmacist [address]35 [place] [address] Pharmacist Pharmacy 10/19/19 Jenna Fitzpatrick MUTUEL MACHINE OPERATOR.ATTORNEY LAWYER [address] [place] [address] Asphalt Mixer Family [facility] 02/28/24 Elvis Kearney APRN.ATTORNEY LAWYER [address] [place] [address] Asphalt Mixer Family [facility] 03/08/24 Workday Financials Consultant Relationship Specialty Start Date End Date Stas Mora MD [address] [place] [address] PCP - General 08/02/08, Pharmacist [address] [place] [address] Pharmacist Pharmacy 10/19/19 Jenna Fitzpatrick, MUTUEL MACHINE OPERATOR.ATTORNEY LAWYER [address] [place] [address] Asphalt Mixer Family [facility] 02/28/24 Elvis Kearney MUTUEL MACHINE OPERATOR.ATTORNEY LAWYER [address] [place] [address] Asphalt Mixer Family [facility] 03/08/24 Workday Financials Consultant Relationship Specialty Start Date End Date Stas Mora MD [address] [place] [address] PCP - General 08/02/08, Pharmacist [address] [place] [address] Pharmacist Pharmacy 10/19/19 Jenna Fitzpatrick, MUTUEL MACHINE OPERATOR.ATTORNEY LAWYER [address] [place] [address] Asphalt Mixer Family [facility] 02/28/24 Elvis Kearney, MUTUEL MACHINE OPERATOR.ATTORNEY LAWYER [address] [place] [address] Asphalt Mixer [facility] 03/08/24 Workday Financials Consultant Relationship Specialty Start Date End Date Stas Mora MD [address] [place] [address] PCP - General 5/13/09 13, Pharmacist [address]111 [facility] [place] [address] Pharmacist Pharmacy 10/19/19 Jenna Fitzpatrick APRN.ATTORNEY LAWYER [address] [facility] [place] [address] Asphalt Mixer Family [facility] 02/28/24 Elvis Kearney APRN.ATTORNEY LAWYER [address] [facility] [place] [address] Asphalt Mixer Family [facility] 03/08/24 Workday Financials Consultant Relationship Specialty Start Date End Date Stas Mora MD [address] [place] [address] PCP - General 08/02/08, Pharmacist [address] [place] [address] Pharmacist Pharmacy 10/19/19 Jenna Fitzpatrick, MUTUEL MACHINE OPERATOR.ATTORNEY LAWYER [address] [place] [address] Asphalt Mixer Family [facility] 02/28/24 Elvis Kearney MUTUEL MACHINE OPERATOR.ATTORNEY LAWYER [address] [facility] [place] [address] Asphalt Mixer Family [facility] 03/08/24 Workday Financials Consultant Relationship Specialty Start Date End Date Stas Mora MD [address] [facility] [place] [address] PCP - General 08/02/08, Pharmacist [address] [place] [address] Pharmacist Pharmacy 10/19/19 Jenna Fitzpatrick MUTUEL MACHINE OPERATOR.ATTORNEY LAWYER [address] [place] [address] Asphalt Mixer Family [facility] 02/28/24 Elvis Kearney APRN.ATTORNEY LAWYER [address] [place] [address] Asphalt Mixer Family [facility] 03/08/24 Workday Financials Consultant Relationship Specialty Start Date End Date Stas Mora MD [address] [place] [address] PCP - General 08/02/08, Pharmacist [address] [place] [address] Pharmacist Pharmacy 10/19/19 Jenna Fitzpatrick APRN.ATTORNEY LAWYER [address] [place] [address] Asphalt Mixer Family [facility] 02/28/24 Elvis Kearney APRN.ATTORNEY LAWYER [address] [place] [address] Asphalt Mixer [facility] 03/08/24 Workday Financials Consultant Relationship Specialty Start Date End Date Stas Mora MD [address] [place] [address] PCP - General 08/02/08, Pharmacist [address] [place] [address] Pharmacist Pharmacy 10/19/19 Jenna Fitzpatrick APRN.ATTORNEY LAWYER [address] [place] [address] Asphalt Mixer Family [facility] 02/28/24 Elvis Kearney APRN.ATTORNEY LAWYER [address] [place] [address] Asphalt Mixer Family [facility] 03/08/24 Workday Financials Consultant Relationship Specialty Start Date End Date Stas Mora MD [address] [place] [address] PCP - General 08/02/08, Pharmacist [address] [place] [address] Pharmacist Pharmacy 10/19/19 Jenna Fitzpatrick, MUTUEL MACHINE OPERATOR.ATTORNEY LAWYER [address] [place] [address] Asphalt Mixer Family [facility] 02/28/24 Elvis Kearney MUTUEL MACHINE OPERATOR.ATTORNEY LAWYER [address] [place] [address] Asphalt Mixer [facility] 03/08/24 Workday Financials Consultant Relationship Specialty Start Date End Date Stas Mora MD [address] [place] [address] PCP - General 08/02/08, Pharmacist [address] [place] [address] Pharmacist Pharmacy 10/19/19 Jenna Fitzpatrick MUTUEL MACHINE OPERATOR.ATTORNEY LAWYER [address] [place] [address] Asphalt Mixer Family [facility] 02/28/24 Elvis Kearney MUTUEL MACHINE OPERATOR.ATTORNEY LAWYER [address] [place] [address] [facility] 03/08/24 Workday Financials Consultant Relationship Specialty Start Date End Date Stas Mora MD [address] [place] [address] PCP - General 08/02/08, Pharmacist [address] [place] [address] Pharmacist Pharmacy 10/19/19 Jenna Fitzpatrick MUTUEL MACHINE OPERATOR.ATTORNEY LAWYER [address] [place] [address] Asphalt Mixer Family [facility] 02/28/24 Elvis Kearney APRN.ATTORNEY LAWYER [address] [place] [address] Asphalt Mixer [facility] 03/08/24 Workday Financials Consultant Relationship Specialty Start Date End Date Stas Mora MD [address] [place] [address] PCP - General 08/02/08, Pharmacist [address]150 [place] [address] Pharmacist Pharmacy 10/19/19 Elvis Kearney APRN.ATTORNEY LAWYER [address] [place] [address] [facility] 03/08/24 Workday Financials Consultant Relationship Specialty Start Date End Date Stas Mora MD [address] [place] [address] PCP - General 08/02/08, Pharmacist 25286 [facility] [place] [address] Pharmacist Pharmacy 10/19/19 Elvis Kearney MUTUEL MACHINE OPERATOR.ATTORNEY LAWYER [address] [place] [address] [facility] 03/08/24 Team Status: Active Member Role Status [...] Provider Active Start: September 05, 2024 Dr. Inedrjit Gillespie MD Emergency Provider Active S tart: [...] Provider Active Sta rt: September 06, 2024 Workday Financials Consultant Relationship Specialty Start Date End Date Stas Mora MD [address] [place], [place] [address] PCP - General 08/02/08 13, Pharmacist [address] [place] [address] Pharmacist Pharmacy 10/19/19 Elvis Kearney APRN.ATTORNEY LAWYER [address] [place], [place] [address] Asphalt Mixer Family [facility] 03/08/24 Team Status: Active Member [...] 2024 End: September 07, 2024 Halina Carmona CUTTER HEAD SHARPENER, CUTTER HEAD SHARPENER-C Attending Provider Active Start: September 07, 2024 [...] End: September 08, 2024 Halina Carmona NP, CUTTER HEAD SHARPENER-C Attending Provider Active Start: September 08, 2024 [...] Care Provider Active Start: October 06, 2024 hSayy GAMA MD Attending Provider Active Start: October 06, 2024 Team Status: Inactive Member Role/Relationship Status Dates Dr. Stas Mora MD Primary Care Provider Active Start: September 30, 2024 End: September 30, 2024 Halina Carmona CUTTER HEAD SHARPENER, CUTTER HEAD SHARPENER-C Attending Provider Active Start: September 30, 2024 [...] 2024 End: October 20, 2024 Halina Carmona CUTTER HEAD SHARPENER, CUTTER HEAD SHARPENER-C Attending Provider Active Start: October 20, 2024 [...] End: September 30, 2024 Halina Carmona NP, CUTTER HEAD SHARPENER-C Attending Provider Active Start: September 30, 2024 [...] 2024 End: October 20, 2024 Halina Carmona CUTTER HEAD SHARPENER, CUTTER HEAD SHARPENER-C Attending Provider Active Start: October 20, 2024 [...] BE BASED ON THE PRIMARY CLINICAL RECORDS. [facility] [employer] provides no warranty or guarantee of the accuracy or completeness of information in this document.
--- OUTSIDE RECORDS SUMMARY | 2024-11-30 04:08 | XMS RPT_ITS | CCD ---
Author Organization [facility] Inform ion [facility] Care Team Providers Care Patient Relations Representative Name Role Phone TEE, DARRELL E Unavailable [...] [phone] Dr. Stas Mora Primary Care Provider Dr. Inderjit Gillespie Emergency Provider Dr. Dirk [...] Unavailable STERLING LYNCH DO Attending Unavailable [place] SPECIAL EVENTS FUNDRAISER.DATASTAGE CONSULTANT, Jenna Unavailable Caio SPECIAL EVENTS FUNDRAISER.DATASTAGE CONSULTANT, Elvis Unavailable LUCIANA CISNEROS Referring Unavailable ELDERBROCKSTAS Primary Care Unavailable [place] SPECIAL EVENTS FUNDRAISER.DATASTAGE CONSULTANT, Jenna Unavailable Unavail able [place] SPECIAL EVENTS FUNDRAISER.DATASTAGE CONSULTANT, Jenna Unavailable Morgan POLANCO, Dr. Ruiz Primary Care Provider [phone] Jose Miguel POLANCO, Dr. Jansen Emergency Provider Priscilla POLANCO, Dr. Kathy Bearden Admit Provider Priscilla POLANCO, Dr. Kathy Bearden Attending Provider Priscilla POLANCO, Dr. Kathy Bearden Other Provider Alberto POLANCO, Dr. Shoemaker Attending Provider Alberto POLANCO, Dr. Shoemaker Other Provider Shayy Curtis MD Attending Provider UnavailShayy Hernandez MD Referring Provider UnavailHalina Narvaez Attending Provider Ever POLANCO, Dr. Lucas Attending Provider [phone] Oleghe OLS, Efewongbe Attending Unavailabl e Elderbrock, [...] Unavailable Elderbrock, Stas Primary Care Unavailable [place] MARKETING REGIONAL CONSULTANT, Halina Attending Unavailable Elderbrock, Stas Primary Care Unavailable [place] MARKETING REGIONAL CONSULTANT, Halina Attending Unavailable Elderbrock, Stas Primary Care Unavailable [place] MARKETING REGIONAL CONSULTANT, Halina Attending Unavailable Oleghe OLS, Efewongbe Attending [...] unspecified vessel or lesion type, unspecified whether tetlin or transplanted heart Take 1 tablet by [...] hydrochloride 10 mg oral tablet (20 sources) M-qwspag-T-aspartate Receptor Antagonist Start: 06-02-19 End: 11-29-19 take [...] Date: 01/01/06 Status: Ordered polyethylene glycol [id number] [id number] mg powder for oral solution (9 sources) [...] on above: Take 1 capsule by mo [facility] daily at bedtime. 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] Onset: 09-22-2016 Episodic [...] 04-24-2011 04-24-2011 Episodic Other aftercare (3 sources) 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 (current) use of anticoagulants; Translations: [Long-term (current) [...] Auto (Unsp spec) [#/Vol] 1.15 10*3/uL 0.83-4.51 [facility] Absolute neutrophil countOrd ered By: Shayy Curtis on 11-23-2024 Neutrophils (Bld) [#/Vol] 4.4 10*3/uL 2.0-7.7 [facility] Automated lymphocyte count a s percentage of total leukocytesOrdered By: Shayy Curtis on 11-23-2024 Lymphocytes/100 WBC Auto (Unsp spec) 17.5 % Low 19-41 [facility] Basophil percentageOrdered B y: baldomero Curtis on 11-23-2024 Basophils/100 WBC (Bld) 0.9 % 0-1 [facility] Eosinophil percentageOrdered By: [facility] Martinradha on 11-23-2024 Eosinophils/100 WBC (Bld) 2.9 % 0-5 [facility] Erythrocyte distribution wid th ratioOrdered By: hollielemooreirlanda Salazarradha on 11-23-2024 Erythrocyte distribution width (RBC) [Ratio] 16.9 % High 11.6-14.6 [facility] Erythrocyte distribution wid th standard deviationOrdered By: Shayy Curtis on 11-23-2024 Erythrocyte distribution width (RBC) [Ratio] 50.4 fl High 35.1-43.9 [facility] Hematocrit Auto (Bld) [Volum e fraction]Ordered By: Shayy Curtis on 11-23-2024 Hematocrit (Bld) [Volume fraction] 36.3 % Low 40-54 [facility] Hemoglobin measurementOrdere d By: Shayy Curtis on 11-23-2024 Hemoglobin (Bld) [Mass/Vol] 11.6 g/dL Low 13.0-16.5 [facility] Immature granulocytes/100 WB C Auto (Bld)Ordered By: hollielemooreirlanda Curtis on 11-23-2024 Immature granulocytes/100 WBC (Bld) 0.300 % 0.0-0.9 [facility] Comment on above: IG% - Immature Granu locytes (promyelocytes, myelocytes and metamyelocytes) > 1% indicates that a LEFT SHIFT is Present. MCV (mean corpuscular volume ) determinationOrdered By: hollielemooreirlanda Curtis on 11-23-2024 MCV (RBC) [Entitic vol] 82.1 fL 80-94 [facility] Mean corpuscular hemoglobin (MCH) determinationOrdered By: baldomero Curtis on 11-23-2024 MCH (RBC) [Entitic mass] 26.2 pg Low 27.0-32.0 [facility] Mean corpuscular hemoglobin concentration (MCHC) determinationOrdered By: baldomero Curtis on 11-23-2024 MCHC (RBC) [Mass/Vol] 32.0 g/dL 32-36 [facility] Mean platelet volume determi nationOrdered By: baldomero Curtis on 11-23-2024 Platelet mean volume (Bld) [Entitic vol] 10.0 fL 6.2-12.0 [facility] Monocyte percentageOrdered B y: Shayy Curtis on 11-23-2024 Monocytes/100 WBC (Bld) 11.3 % High 0-10 [facility] Neutrophil percentageOrdered By: Shayy Curtis on 11-23-2024 Neutrophils/100 WBC (Bld) 67.1 % 47-70 [facility] Nucleated red blood cell per centageOrdered By: Shayy Curtis on 11-23-2024 Nucleated RBC/100 WBC (Bld) [Ratio] 0 % 0-5 [facility] Platelet countOrdered By: Ef baldomero Curtis on 11-23-2024 Platelets (Bld) [#/Vol] 245 10*3/uL 150-450 [facility] RBC Auto (Bld) [#/Vol]Ordere d By: Shayy Curtis on 11-23-2024 RBC (Bld) [#/Vol] 4.42 10*6/uL Low 4.6-6.2 [facility] White blood cell (WBC) count Ordered By: Shayy Bernalradha on 11-23-2024 WBC (Bld) [#/Vol] 6.6 10*3/uL 4.4-11.0 [facility] Absolute lymphocyte countOrd ered By: Shayy Curtis on 11-02-2024 Lymphocytes Auto (Unsp spec) [#/Vol] 1.10 10*3/uL 0.83-4.51 [facility] Absolute neutrophil countOrd ered By: Shayy Curtis on 11-02-2024 Neutrophils (Bld) [#/Vol] 6.2 10*3/uL 2.0-7.7 [facility] Anion gap in Serum or Plasma Ordered By: Shayy Curtis on 11-02-2024 Anion gap [Moles/Vol] 10 mmol/L 5-15 [facility] Automated lymphocyte count a s percentage of total leukocytesOrdered By: Shayy Bernalradha on 11-02-2024 Lymphocytes/100 WBC Auto (Unsp spec) 13.5 % Low 19-41 [facility] BUN/creatinine ratioOrdered By: Shayy Bernalradha on 11-02-2024 Urea nitrogen/Creatinine [Mass ratio] 30.4 mg/mg High 10-20 [facility] Basophil percentageOrdered B y: Shayy Curtis on 11-02-2024 Basophils/100 WBC (Bld) 0.5 % 0-1 [facility] Carbon dioxide, total [Moles /volume] in Central venous bloodOrdered By: Shayy Curtis on 11-02-2024 CO2 [Moles/Vol] 22.3 mmol/L 21.0-32.0 [facility] Chloride assayOrdered By: Hung Curtis on 11-02-2024 Chloride [Moles/Vol] 106 mmol/L 98-108 [facility] Eosinophil percentageOrdered By: Shayy Curtis on 11-02-2024 Eosinophils/100 WBC (Bld) 1.4 % 0-5 [facility] Erythrocyte distribution wid th ratioOrdered By: Shayy Curtis on 11-02-2024 Erythrocyte distribution width (RBC) [Ratio] 18.0 % High 11.6-14.6 [facility] Erythrocyte distribution wid th standard deviationOrdered By: hollielemooreirlanda Curtis on 11-02-2024 Erythrocyte distribution width (RBC) [Ratio] 53.7 fl High 35.1-43.9 [facility] Glomerular filtration rate ( GFR) estimation/1.73 sq m using serum, plasma, or whole bOrdered By: Shayy Curtis on 11-02-2024 GFR/1.73 sq M.predicted among non-blacks MDRD (S/P/Bld) [Vol rate/Area] 91 mL/min/{1.73_m2} >60 [facility] Comment on above: mL/min/1.73m2 CKD-EP I Creatinine Equation (2020) Hematocrit Auto (Bld) [Volum e fraction]Ordered By: Shayy Curtis on 11-02-2024 Hematocrit (Bld) [Volume fraction] 35.3 % Low 40-54 [facility] Hemoglobin measurementOrdere d By: Shayy Curtis on 11-02-2024 Hemoglobin (Bld) [Mass/Vol] 11.2 g/dL Low 13.0-16.5 [facility] Immature granulocytes/100 WB C Auto (Bld)Ordered By: Shayy Curtis 11-02-2024 Immature granulocytes/100 WBC (Bld) 0.400 % 0.0-0.9 [facility] Comment on above: IG% - Immature Granu locytes (promyelocytes, myelocytes and metamyelocytes) > 1% indicates that a LEFT SHIFT is Present. MCV (mean corpuscular volume ) determinationOrdered By: Shayy Curtis on 11-02-2024 MCV (RBC) [Entitic vol] 81.5 fL 80-94 [facility] Mean corpuscular hemoglobin (MCH) determinationOrdered By: Shayy Curtis on 11-02-2024 MCH (RBC) [Entitic mass] 25.9 pg Low 27.0-32.0 [facility] Mean corpuscular hemoglobin concentration (MCHC) determinationOrdered By: Shayy Curtis on 11-02-2024 MCHC (RBC) [Mass/Vol] 31.7 g/dL Low 32-36 [facility] Mean platelet volume determi nationOrdered By: Shayy Curtis on 11-02-2024 Platelet mean volume (Bld) [Entitic vol] 10.3 fL 6.2-12.0 [facility] Monocyte percentageOrdered B y: Shayy Curtis on 11-02-2024 Monocytes/100 WBC (Bld) 7.7 % 0-10 [facility] Neutrophil percentageOrdered By: Shayy Curtis on 11-02-2024 Neutrophils/100 WBC (Bld) 76.5 % High 47-70 [facility] Nucleated red blood cell per centageOrdered By: Shayy Curtis on 11-02-2024 Nucleated RBC/100 WBC (Bld) [Ratio] 0 % 0-5 [facility] Platelet countOrdered By: Hung Curtis on 11-02-2024 Platelets (Bld) [#/Vol] 225 10*3/uL 150-450 [facility] Potassium measurement (mass/ volume)Ordered By: Shayy Curtis on 11-02-2024 Potassium (Unsp spec) [Mass/Vol] 3.9 mmol/L 3.3-5.1 [facility] RBC Auto (Bld) [#/Vol]Ordere d By: Shayy Curtis on 11-02-2024 RBC (Bld) [#/Vol] 4.33 10*6/uL Low 4.6-6.2 [facility] Serum creatinine measurement (mass/volume)Ordered By: Shayy Curtis on 11-02-2024 Creatinine [Mass/Vol] 0.62 mg/dL Low 0.70-1.20 [facility] Serum glucose measurement (m ass/volume)Ordered By: Shayy Curtis on 11-02-2024 Glucose [Mass/Vol] 110 mg/dL High 70-99 [facility] Serum or plasma calcium alvaro urement (mass/volume)Ordered By: Shayy Curtis on 11-02-2024 Calcium [Mass/Vol] 8.7 mg/dL 7.6-11.0 [facility] Serum or plasma urea nitroge n measurement (mass/volume)Ordered By: Shayy Curtis on 11-02-2024 Urea nitrogen [Mass/Vol] 19 mg/dL 4-19 [facility] Sodium levelOrdered By: Latrice simonraffiradha Curtis on 11-02-2024 Sodium [Moles/Vol] 139 mmol/L 133-145 [facility] White blood cell (WBC) count Ordered By: Shayy Curtis on 11-02-2024 WBC (Bld) [#/Vol] 8.1 10*3/uL 4.4-11.0 [facility] International normalized rat io (INR) measurement by fingerstickOrdered By: Shayy Curtis on 10-31-2024 INR Coag (BldC) [Relative time] 1.8 [facility] Comment on above: Critical Value > 4.0 Whole blood prothrombin time Ordered By: Shayy Curtis on 10-31-2024 PT Coag (Bld) [Time] 20.2 s High 11.7-14.9 [facility] normalized rat io (INR) measurement by fingerstickOrdered By: Shayy Curtis on 10-06-2024 INR Coag (BldC) [Relative time] 2.1 [facility] Comment on above: Critical Value > 4.0 Whole blood prothrombin time Ordered By: Shayy Curtis on 10-06-2024 PT Coag (Bld) [Time] 22.6 s High 11.7-14.9 [facility] Absolute lymphocyte countOrd ered By: Shayy Curtis on 10-05-2024 Lymphocytes Auto (Unsp spec) [#/Vol] 1.54 10*3/uL 0.83-4.51 [facility] Absolute neutrophil countOrd ered By: Efhollieongirlanda Bernale on 10-05-2024 Neutrophils (Bld) [#/Vol] 4.2 10*3/uL 2.0-7.7 [facility] Anion gap in Serum or Plasma Ordered By: Shayy Curtis on 10-05-2024 Anion gap [Moles/Vol] 10 mmol/L 5-15 [facility] Automated lymphocyte count a s percentage of total leukocytesOrdered By: Shayy Curtis on 10-05-2024 Lymphocytes/100 WBC Auto (Unsp spec) 23.8 % 19-41 [facility] BUN/creatinine ratioOrdered By: Shayy Curtis on 10-05-2024 Urea nitrogen/Creatinine [Mass ratio] 18.2 mg/mg 10-20 [facility] Basophil percentageOrdered B y: Shayy Curtis on 10-05-2024 Basophils/100 WBC (Bld) 0.6 % 0-1 [facility] Carbon dioxide, total [Moles /volume] in Central venous bloodOrdered By: Shayy Curtis on 10-05-2024 CO2 [Moles/Vol] 24.6 mmol/L 21.0-32.0 [facility] Chloride assayOrdered By: Ef baldomero Curtis on 10-05-2024 Chloride [Moles/Vol] 106 mmol/L 98-108 [facility] Eosinophil percentageOrdered By: Shayy Bernale on 10-05-2024 Eosinophils/100 WBC (Bld) 1.9 % 0-5 [facility] Erythrocyte distribution wid th ratioOrdered By: Latriceongirlanda Bernale on 10-05-2024 Erythrocyte distribution width (RBC) [Ratio] 18.2 % High 11.6-14.6 [facility] Erythrocyte distribution wid th standard deviationOrdered By: Shayy Curtis on 10-05-2024 Erythrocyte distribution width (RBC) [Ratio] 52.4 fl High 35.1-43.9 [facility] Glomerular filtration rate ( GFR) estimation/1.73 sq m using serum, plasma, or whole bOrdered By: Shayy Curtis on 10-05-2024 GFR/1.73 sq M.predicted among non-blacks MDRD (S/P/Bld) [Vol rate/Area] 87 mL/min/{1.73_m2} >60 [facility] Comment on above: mL/min/1.73m2 CKD-EP I Creatinine Equation (2020) Hematocrit Auto (Bld) [Volum e fraction]Ordered By: Shayy Curtis on 10-05-2024 Hematocrit (Bld) [Volume fraction] 35.0 % Low 40-54 [facility] Hemoglobin measurementOrdere d By: Shayy Curtis on 10-05-2024 Hemoglobin (Bld) [Mass/Vol] 11.0 g/dL Low 13.0-16.5 [facility] Immature granulocytes/100 WB C Auto (Bld)Ordered By: Shayy Curtis on 10-05-2024 Immature granulocytes/100 WBC (Bld) 0.300 % 0.0-0.9 [facility] Comment on above: IG% - Immature Granu locytes (promyelocytes, myelocytes and metamyelocytes) > 1% indicates that a LEFT SHIFT is Present. MCV (mean corpuscular volume ) determinationOrdered By: Shayy Curtis on 10-05-2024 MCV (RBC) [Entitic vol] 78.8 fL Low 80-94 [facility] Mean corpuscular hemoglobin (MCH) determinationOrdered By: Shayy Curtis on 10-05-2024 MCH (RBC) [Entitic mass] 24.8 pg Low 27.0-32.0 [facility] Mean corpuscular hemoglobin concentration (MCHC) determinationOrdered By: Shayy Curtis on 10-05-2024 MCHC (RBC) [Mass/Vol] 31.4 g/dL Low 32-36 [facility] Mean platelet volume determi nationOrdered By: Shayy Curtis on 10-05-2024 Platelet mean volume (Bld) [Entitic vol] 10.3 fL 6.2-12.0 [facility] Monocyte percentageOrdered B y: Shayy Curtis on 10-05-2024 Monocytes/100 WBC (Bld) 8.5 % 0-10 [facility] Neutrophil percentageOrdered By: Shayy Curtis on 10-05-2024 Neutrophils/100 WBC (Bld) 64.9 % 47-70 [facility] Nucleated red blood cell per centageOrdered By: Shayy Curtis on 10-05-2024 Nucleated RBC/100 WBC (Bld) [Ratio] 0 % 0-5 [facility] Platelet countOrdered By: Hung Curtis on 10-05-2024 Platelets (Bld) [#/Vol] 235 10*3/uL 150-450 [facility] Potassium measurement (mass/ volume)Ordered By: Hunghollierobsonirlanda Salazartomyradha on 10-05-2024 Potassium (Unsp spec) [Mass/Vol] 4.1 mmol/L 3.3-5.1 [facility] RBC Auto (Bld) [#/Vol]Ordere d By: Shayy Curtis on 10-05-2024 RBC (Bld) [#/Vol] 4.44 10*6/uL Low 4.6-6.2 [facility] Serum creatinine measurement (mass/volume)Ordered By: Hunghollierobsonirlanda Salazartomyradha on 10-05-2024 Creatinine [Mass/Vol] 0.73 mg/dL 0.70-1.20 [facility] Serum glucose measurement (m ass/volume)Ordered By: Hunghollierobsonirlanda Salazartomyradha on 10-05-2024 Glucose [Mass/Vol] 90 mg/dL 70-99 [facility] Serum or plasma calcium alvaro urement (mass/volume)Ordered By: Shayy Martintomyradha on 10-05-2024 Calcium [Mass/Vol] 8.7 mg/dL 7.6-11.0 [facility] Serum or plasma urea nitroge n measurement (mass/volume)Ordered By: Shayy Martintomyradha on 10-05-2024 Urea nitrogen [Mass/Vol] 13 mg/dL 4-19 [facility] Sodium levelOrdered By: Latrice warner Martintomyradha on 10-05-2024 Sodium [Moles/Vol] 140 mmol/L 133-145 [facility] White blood cell (WBC) count Ordered By: Christineirlanda Martintomyradha on 10-05-2024 WBC (Bld) [#/Vol] 6.5 10*3/uL 4.4-11.0 [facility] International normalized rat io (INR) calculationOrdered By: Shayy Curtis on 09-29-2024 INR Coag (Bld) [Relative time] 3.3 {INR} [facility] Prothrombin timeOrdered By: Shayy Curtis on 09-29-2024 PT Coag (PPP) [Time] 34.4 s High 11.7-14.9 [facility] Absolute lymphocyte countOrd ered By: Shayy Curtis on 09-28-2024 Lymphocytes Auto (Unsp spec) [#/Vol] 1.41 10*3/uL 0.83-4.51 [facility] Absolute neutrophil countOrd ered By: Shayy Curtis on 09-28-2024 Neutrophils (Bld) [#/Vol] 4.8 10*3/uL 2.0-7.7 [facility] Anion gap in Serum or Plasma Ordered By: Shayy Curtis on 09-28-2024 Anion gap [Moles/Vol] 13 mmol/L 5-15 [facility] Automated lymphocyte count a s percentage of total leukocytesOrdered By: Shayy Curtis on 09-28-2024 Lymphocytes/100 WBC Auto (Unsp spec) 20.1 % 19-41 [facility] BUN/creatinine ratioOrdered By: Shayy Curtis on 09-28-2024 Urea nitrogen/Creatinine [Mass ratio] 19.9 mg/mg 10-20 [facility] Basophil percentageOrdered B y: Shayy Curtis on 09-28-2024 Basophils/100 WBC (Bld) 0.6 % 0-1 [facility] Carbon dioxide, total [Moles /volume] in Central venous bloodOrdered By: Shayy Curtis on 09-28-2024 CO2 [Moles/Vol] 21.1 mmol/L 21.0-32.0 [facility] Chloride assayOrdered By: Hung connorirlanda Curtis on 09-28-2024 Chloride [Moles/Vol] 105 mmol/L 98-108 [facility] Eosinophil percentageOrdered By: [facility]a Curtis 09-28-2024 Eosinophils/100 WBC (Bld) 2.0 % 0-5 [facility] Erythrocyte distribution wid th ratioOrdered By: hollielemooreirlanda Curtis on 09-28-2024 Erythrocyte distribution width (RBC) [Ratio] 18.3 % High 11.6-14.6 [facility] Erythrocyte distribution wid th standard deviationOrdered By: [facility] Mcduffieirlanda Salazarradha on 09-28-2024 Erythrocyte distribution width (RBC) [Ratio] 52.8 fl High 35.1-43.9 [facility] Glomerular filtration rate ( GFR) estimation/1.73 sq m using serum, plasma, or whole bOrdered By: baldomero Curtis on 09-28-2024 GFR/1.73 sq M.predicted among non-blacks MDRD (S/P/Bld) [Vol rate/Area] 88 mL/min/{1.73_m2} >60 [facility] Comment on above: mL/min/1.73m2 CKD-EP I Creatinine Equation (2020) Hematocrit Auto (Bld) [Volum e fraction]Ordered By: baldomero Curtis 09-28-2024 Hematocrit (Bld) [Volume fraction] 37.0 % Low 40-54 [facility] Hemoglobin measurementOrdere d By: Shayy Curtis on 09-28-2024 Hemoglobin (Bld) [Mass/Vol] 11.5 g/dL Low 13.0-16.5 [facility] Immature granulocytes/100 WB C Auto (Bld)Ordered By: baldomero Curtis on 09-28-2024 Immature granulocytes/100 WBC (Bld) 0.300 % 0.0-0.9 [facility] Comment on above: IG% - Immature Granu locytes (promyelocytes, myelocytes and metamyelocytes) > 1% indicates that a LEFT SHIFT is Present. MCV (mean corpuscular volume ) determinationOrdered By: Shayy Curtis on 09-28-2024 MCV (RBC) [Entitic vol] 80.3 fL 80-94 [facility] Mean corpuscular hemoglobin (MCH) determinationOrdered By: Shayy Curtis on 09-28-2024 MCH (RBC) [Entitic mass] 24.9 pg Low 27.0-32.0 [facility] Mean corpuscular hemoglobin concentration (MCHC) determinationOrdered By: Shayy Curtis on 09-28-2024 MCHC (RBC) [Mass/Vol] 31.1 g/dL Low 32-36 [facility] Mean platelet volume determi nationOrdered By: Shayy Curtis on 09-28-2024 Platelet mean volume (Bld) [Entitic vol] 10.5 fL 6.2-12.0 [facility] Monocyte percentageOrdered B y: Shayy Curtis on 09-28-2024 Monocytes/100 WBC (Bld) 8.8 % 0-10 [facility] Neutrophil percentageOrdered By: baldomero Curtis on 09-28-2024 Neutrophils/100 WBC (Bld) 68.2 % 47-70 [facility] Nucleated red blood cell per centageOrdered By: Shayy Curtis on 09-28-2024 Nucleated RBC/100 WBC (Bld) [Ratio] 0 % 0-5 [facility] Platelet countOrdered By: Hung Curtis on 09-28-2024 Platelets (Bld) [#/Vol] 280 10*3/uL 150-450 [facility] Potassium measurement (mass/ volume)Ordered By: Shayy Curtis on 09-28-2024 Potassium (Unsp spec) [Mass/Vol] 4.0 mmol/L 3.3-5.1 [facility] RBC Auto (Bld) [#/Vol]Ordere d By: Shayy Curtis on 09-28-2024 RBC (Bld) [#/Vol] 4.61 10*6/uL 4.6-6.2 [facility] Serum creatinine measurement (mass/volume)Ordered By: Shayy Curtis on 09-28-2024 Creatinine [Mass/Vol] 0.71 mg/dL 0.70-1.20 [facility] Serum glucose measurement (m ass/volume)Ordered By: Shayy Curtis on 09-28-2024 Glucose [Mass/Vol] 91 mg/dL 70-99 [facility] Serum or plasma calcium alvaro urement (mass/volume)Ordered By: Shayy Curtis on 09-28-2024 Calcium [Mass/Vol] 8.9 mg/dL 7.6-11.0 [facility] Serum or plasma urea nitroge n measurement (mass/volume)Ordered By: Shayy Curtis on 09-28-2024 Urea nitrogen [Mass/Vol] 14 mg/dL 4-19 [facility] Sodium levelOrdered By: Latrice Curtis on 09-28-2024 Sodium [Moles/Vol] 140 mmol/L 133-145 [facility] White blood cell (WBC) count Ordered By: Shayy Curtis on 09-28-2024 WBC (Bld) [#/Vol] 7.0 10*3/uL 4.4-11.0 [facility] International normalized rat io (INR) measurement by fingerstickOrdered By: Shayy Curtis on 09-26-2024 INR Coag (BldC) [Relative time] 2.5 [facility] Comment on above: Critical Value > 4.0 Whole blood prothrombin time Ordered By: Shayy Curtis on 09-26-2024 PT Coag (Bld) [Time] 27.1 s High 11.7-14.9 [facility] normalized rat io (INR) calculationOrdered By: Shayy Curtis on 09-23-2024 INR Coag (Bld) [Relative time] 2.0 {INR} [facility] Prothrombin timeOrdered By: Shayy Curtis on 09-23-2024 PT Coag (PPP) [Time] 23.5 s High 11.7-14.9 [facility] Absolute lymphocyte countOrd ered By: Shayy Curtis on 09-21-2024 Lymphocytes Auto (Unsp spec) [#/Vol] 1.35 10*3/uL 0.83-4.51 [facility] Absolute neutrophil countOrd ered By: Shayy Curtis on 09-21-2024 Neutrophils (Bld) [#/Vol] 4.3 10*3/uL 2.0-7.7 [facility] Anion gap in Serum or Plasma Ordered By: hollielemooreirlanda Martinsergio on 09-21-2024 Anion gap [Moles/Vol] 12 mmol/L 5-15 [facility] Automated lymphocyte count a s percentage of total leukocytesOrdered By: hollielemooreirlanda Curtis on 09-21-2024 Lymphocytes/100 WBC Auto (Unsp spec) 21.5 % 19-41 [facility] BUN/creatinine ratioOrdered By: [facility]ieir[facility]a Salazarradha on 09-21-2024 Urea nitrogen/Creatinine [Mass ratio] 15.8 mg/mg 10-20 [facility] - [place] Basophil percentageOrdered B y: Shayy Curtis on 09-21-2024 Basophils/100 WBC (Bld) 0.8 % 0-1 [facility] CNPNon 09-21-2024 [facility]N [facility] ROBY FLORES ([id number]) 1935 M Date Time Provider Department 09/21/24 [facility] During your visit today, we recorded the following information about you: Ruthannzenaida Petty 09/21/2024 9:23 AM Signed [facility]. 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 Encounter Status:Closed by MARTA PALACIO on 09/22/24 Normal [facility] Carbon dioxide, total [Moles /volume] in Central venous bloodOrdered By: Shayy Curtis on 09-21-2024 CO2 [Moles/Vol] 23.2 mmol/L 21.0-32.0 [facility] Chloride assayOrdered By: Hung Curtis on 09-21-2024 Chloride [Moles/Vol] 104 mmol/L 98-108 [facility] Eosinophil percentageOrdered By: Shayy Curtis on 09-21-2024 Eosinophils/100 WBC (Bld) 1.3 % 0-5 [facility] Erythrocyte distribution wid th ratioOrdered By: Shayy Curtis on 09-21-2024 Erythrocyte distribution width (RBC) [Ratio] 18.0 % High 11.6-14.6 [facility] Erythrocyte distribution wid th standard deviationOrdered By: Shayy Curtis on 09-21-2024 Erythrocyte distribution width (RBC) [Ratio] 50.8 fl High 35.1-43.9 [facility] Glomerular filtration rate ( GFR) estimation/1.73 sq m using serum, plasma, or whole bOrdered By: Shayy Curtis on 09-21-2024 GFR/1.73 sq M.predicted among non-blacks MDRD (S/P/Bld) [Vol rate/Area] 88 mL/min/{1.73_m2} >60 [facility] Comment on above: mL/min/1.73m2 CKD-EP I Creatinine Equation (2020) Hematocrit Auto (Bld) [Volum e fraction]Ordered By: Shayy Curtis on 09-21-2024 Hematocrit (Bld) [Volume fraction] 37.5 % Low 40-54 [facility] Hemoglobin measurementOrdere d By: Shayy Curtis on 09-21-2024 Hemoglobin (Bld) [Mass/Vol] 11.6 g/dL Low 13.0-16.5 [facility] Immature granulocytes/100 WB C Auto (Bld)Ordered By: Shayy Curtis on 09-21-2024 Immature granulocytes/100 WBC (Bld) 0.300 % 0.0-0.9 [facility] Comment on above: IG% - Immature Granu locytes (promyelocytes, myelocytes and metamyelocytes) > 1% indicates that a LEFT SHIFT is Present. International normalized rat io (INR) calculationOrdered By: Shayy Curtis on 09-21-2024 INR Coag (Bld) [Relative time] 1.7 {INR} [facility] MCV (mean corpuscular volume ) determinationOrdered By: Shayy Curtis on 09-21-2024 MCV (RBC) [Entitic vol] 78.9 fL Low 80-94 [facility] Mean corpuscular hemoglobin (MCH) determinationOrdered By: Shayy Curtis 09-21-2024 MCH (RBC) [Entitic mass] 24.4 pg Low 27.0-32.0 [facility] Mean corpuscular hemoglobin concentration (MCHC) determinationOrdered By: Shayy Curtis on 09-21-2024 MCHC (RBC) [Mass/Vol] 30.9 g/dL Low 32-36 [facility] Mean platelet volume determi nationOrdered By: Shayy Curtis on 09-21-2024 Platelet mean volume (Bld) [Entitic vol] 10.1 fL 6.2-12.0 [facility] Monocyte percentageOrdered B y: Shayy Curtis on 09-21-2024 Monocytes/100 WBC (Bld) 8.1 % 0-10 [facility] Neutrophil percentageOrdered By: Shayy Curtis on 09-21-2024 Neutrophils/100 WBC (Bld) 68.0 % 47-70 [facility] Nucleated red blood cell per centageOrdered By: Shayy Curtis on 09-21-2024 Nucleated RBC/100 WBC (Bld) [Ratio] 0 % 0-5 [facility] Platelet countOrdered By: Hung Curtis on 09-21-2024 Platelets (Bld) [#/Vol] 318 10*3/uL 150-450 [facility] Potassium measurement (mass/ volume)Ordered By: Shayy Curtis on 09-21-2024 Potassium (Unsp spec) [Mass/Vol] 4.0 mmol/L 3.3-5.1 [facility] Prothrombin timeOrdered By: Shayy Curtis on 09-21-2024 PT Coag (PPP) [Time] 20.6 s High 11.7-14.9 [facility] RBC Auto (Bld) [#/Vol]Ordere d By: Shayy Curtis on 09-21-2024 RBC (Bld) [#/Vol] 4.75 10*6/uL 4.6-6.2 [facility] Serum creatinine measurement (mass/volume)Ordered By: Shayy Curtis on 09-21-2024 Creatinine [Mass/Vol] 0.70 mg/dL 0.70-1.20 [facility] Serum glucose measurement (m ass/volume)Ordered By: Shayy Curtis on 09-21-2024 Glucose [Mass/Vol] 101 mg/dL High 70-99 [facility] Serum or plasma calcium alvaro urement (mass/volume)Ordered By: Shayy Curtis on 09-21-2024 Calcium [Mass/Vol] 9.2 mg/dL 7.6-11.0 [facility] Serum or plasma urea nitroge n measurement (mass/volume)Ordered By: Shayy Curtis on 09-21-2024 Urea nitrogen [Mass/Vol] 11 mg/dL 4-19 [facility] Sodium levelOrdered By: Latrice Curtis on 09-21-2024 Sodium [Moles/Vol] 139 mmol/L 133-145 [facility] White blood cell (WBC) count Ordered By: Shayy Curtis on 09-21-2024 WBC (Bld) [#/Vol] 6.3 10*3/uL 4.4-11.0 [facility] International normalized rat io (INR) measurement by fingerstickOrdered By: Shayy Curtis on 09-19-2024 INR Coag (BldC) [Relative time] 1.9 [facility] Comment on above: Critical Value > 4.0 Whole blood prothrombin time Ordered By: Shayy Curtis on 09-19-2024 PT Coag (Bld) [Time] 21.5 s High 11.7-14.9 [facility] International normalized rat io (INR) calculationOrdered By: Shayy Curtis on 09-15-2024 INR Coag (Bld) [Relative time] 2.1 {INR} [facility] Prothrombin timeOrdered By: Shayy Curtis on 09-15-2024 PT Coag (PPP) [Time] 24.2 s High 11.7-14.9 [facility] Absolute lymphocyte countOrd ered By: Shayy Curtis on 09-14-2024 Lymphocytes Auto (Unsp spec) [#/Vol] 1.57 10*3/uL 0.83-4.51 [facility] Absolute neutrophil countOrd ered By: Shayy Curtis on 09-14-2024 Neutrophils (Bld) [#/Vol] 5.1 10*3/uL 2.0-7.7 [facility] Anion gap in Serum or Plasma Ordered By: Shayy Curtis on 09-14-2024 Anion gap [Moles/Vol] 12 mmol/L 5-15 [facility] Automated lymphocyte count a s percentage of total leukocytesOrdered By: Shayy Curtis on 09-14-2024 Lymphocytes/100 WBC Auto (Unsp spec) 20.8 % 19-41 [facility] BUN/creatinine ratioOrdered By: baldomero Curtis on 09-14-2024 Urea nitrogen/Creatinine [Mass ratio] 21.8 mg/mg High 10-20 [facility] Basophil percentageOrdered B y: Shayy Curtis on 09-14-2024 Basophils/100 WBC (Bld) 1.1 % High 0-1 [facility] Carbon dioxide, total [Moles /volume] in Central venous bloodOrdered By: Shayy Curtis on 09-14-2024 CO2 [Moles/Vol] 21.8 mmol/L 21.0-32.0 [facility] Chloride assayOrdered By: Hung Curtis on 09-14-2024 Chloride [Moles/Vol] 107 mmol/L 98-108 [facility] Eosinophil percentageOrdered By: baldomero Curtis on 09-14-2024 Eosinophils/100 WBC (Bld) 1.7 % 0-5 [facility] Erythrocyte distribution wid th ratioOrdered By: Shayy Curtis on 09-14-2024 Erythrocyte distribution width (RBC) [Ratio] 17.7 % High 11.6-14.6 [facility] Erythrocyte distribution wid th standard deviationOrdered By: baldomero Curtis on 09-14-2024 Erythrocyte distribution width (RBC) [Ratio] 51.1 fl High 35.1-43.9 [facility] Glomerular filtration rate ( GFR) estimation/1.73 sq m using serum, plasma, or whole bOrdered By: Shayy Curtis on 09-14-2024 GFR/1.73 sq M.predicted among non-blacks MDRD (S/P/Bld) [Vol rate/Area] 87 mL/min/{1.73_m2} >60 [facility] Comment on above: mL/min/1.73m2 CKD-EP I Creatinine Equation (2020) Hematocrit Auto (Bld) [Volum e fraction]Ordered By: Shayy Curtis on 09-14-2024 Hematocrit (Bld) [Volume fraction] 34.7 % Low 40-54 [facility] Hemoglobin measurementOrdere d By: Shayy Curtis on 09-14-2024 Hemoglobin (Bld) [Mass/Vol] 10.7 g/dL Low 13.0-16.5 [facility] Immature granulocytes/100 WB C Auto (Bld)Ordered By: baldomero Curtis on 09-14-2024 Immature granulocytes/100 WBC (Bld) 0.400 % 0.0-0.9 [facility] Comment on above: IG% - Immature Granu locytes (promyelocytes, myelocytes and metamyelocytes) > 1% indicates that a LEFT SHIFT is Present. MCV (mean corpuscular volume ) determinationOrdered By: Shayy Curtis on 09-14-2024 MCV (RBC) [Entitic vol] 78.9 fL Low 80-94 [facility] Mean corpuscular hemoglobin (MCH) determinationOrdered By: hollielemooreirlanda Curtis on 09-14-2024 MCH (RBC) [Entitic mass] 24.3 pg Low 27.0-32.0 [facility] Mean corpuscular hemoglobin concentration (MCHC) determinationOrdered By: Shayy Curtis on 09-14-2024 MCHC (RBC) [Mass/Vol] 30.8 g/dL Low 32-36 [facility] Mean platelet volume determi nationOrdered By: hollielemooreirlanda Curtis on 09-14-2024 Platelet mean volume (Bld) [Entitic vol] 10.6 fL 6.2-12.0 [facility] Monocyte percentageOrdered B y: Shayy Curtis on 09-14-2024 Monocytes/100 WBC (Bld) 8.5 % 0-10 [facility] Neutrophil percentageOrdered By: baldomero Curtis on 09-14-2024 Neutrophils/100 WBC (Bld) 67.5 % 47-70 [facility] Nucleated red blood cell per centageOrdered By: Shayy Martinsergio on 09-14-2024 Nucleated RBC/100 WBC (Bld) [Ratio] 0 % 0-5 [facility] Platelet countOrdered By: Hung baldomero Martintomyradha on 09-14-2024 Platelets (Bld) [#/Vol] 291 10*3/uL 150-450 [facility] Potassium measurement (mass/ volume)Ordered By: Hungholilerobsonirlanda Salazartomyradha on 09-14-2024 Potassium (Unsp spec) [Mass/Vol] 4.0 mmol/L 3.3-5.1 [facility] RBC Auto (Bld) [#/Vol]Ordere d By: Shayy Martinsergio on 09-14-2024 RBC (Bld) [#/Vol] 4.40 10*6/uL Low 4.6-6.2 [facility] Serum creatinine measurement (mass/volume)Ordered By: Hunghollietimmy Martintomyradha on 09-14-2024 Creatinine [Mass/Vol] 0.74 mg/dL 0.70-1.20 [facility] Serum glucose measurement (m ass/volume)Ordered By: Christineirlanda Salazartomyradha on 09-14-2024 Glucose [Mass/Vol] 99 mg/dL 70-99 [facility] Serum or plasma calcium alvaro urement (mass/volume)Ordered By: Hunghollierobsonrilanda Salazartomyradha on 09-14-2024 Calcium [Mass/Vol] 8.6 mg/dL 7.6-11.0 [facility] Serum or plasma urea nitroge n measurement (mass/volume)Ordered By: Hungbaldomero Salazartomyradha on 09-14-2024 Urea nitrogen [Mass/Vol] 16 mg/dL 4-19 [facility] Sodium levelOrdered By: Latrice warner Martintomyradha on 09-14-2024 Sodium [Moles/Vol] 141 mmol/L 133-145 [facility] White blood cell (WBC) count Ordered By: Hunghollierobsonirlanda Salazartomyradha on 09-14-2024 WBC (Bld) [#/Vol] 7.5 10*3/uL 4.4-11.0 [facility] International normalized rat io (INR) measurement by fingerstickOrdered By: Shayy Curtis on 09-12-2024 INR Coag (BldC) [Relative time] 3.2 [facility] Comment on above: Critical Value > 4.0 Whole blood prothrombin time Ordered By: Shayy Curtis on 09-12-2024 PT Coag (Bld) [Time] 33.0 s High 11.7-14.9 [facility] International normalized rat io (INR) measurement by fingerstickOrdered By: Shayy Curtis on 09-08-2024 INR Coag (BldC) [Relative time] 2.2 [facility] Comment on above: Critical Value > 4.0 Prothrombin Time w/INRon INR Normal [facility] Comment on above: Result Comment: Canc elled via OM: Order cancelled - Patient discharged Performed By: #### L 300.3900 #### [facility] [address] [place], [place], [id number] PROTIME Normal 11.7-14.9 [facility] Comment on above: Result Comment: Canc elled via OM: Order cancelled - Patient discharged Performed By: #### L 300.3900 #### [facility] [address] [place], [address] Whole blood prothrombin time Ordered By: Shayy Curtis on 09-08-2024 PT Coag (Bld) [Time] 23.8 s High 11.7-14.9 [facility] Anion gap in Serum or Plasma Ordered By: Shayy Curtis on 09-07-2024 Anion gap [Moles/Vol] 10 mmol/L 5-15 [facility] BUN/creatinine ratioOrdered By: Shayy Curtis on 09-07-2024 Urea nitrogen/Creatinine [Mass ratio] 14.0 mg/mg 10-20 [facility] Bilirubin, totalOrdered By: Shayy Curtis on 09-07-2024 Bilirubin [Mass/Vol] 1.02 mg/dL 0.00-1.30 [facility] Calculated very low density lipoprotein (VLDL) cholesterol measurementOrdered By: Shayy Curtis on 09-07-2024 Calculated very low density lipoprotein (VLDL) cholesterol measurement 13 mg/dL 5-40 [facility] Carbon dioxide, total [Moles /volume] in Central venous bloodOrdered By: Shayy Curtis on 09-07-2024 CO2 [Moles/Vol] 25.4 mmol/L 21.0-32.0 [facility] Chloride assayOrdered By: Hung Curtis on 09-07-2024 Chloride [Moles/Vol] 104 mmol/L 98-108 [facility] Culture, Blood (WB)on 2024 CUB No growth in 5 days. Normal [facility] Comment on above: Performed By: #### M 200.1000, L509.7001, L101.9900, L501.6710 #### [facility] [address] [place], [address] Glomerular filtration rate ( GFR) estimation/1.73 sq m using serum, plasma, or whole bOrdered By: Shayy Curtis on 09-07-2024 GFR/1.73 sq M.predicted among non-blacks MDRD (S/P/Bld) [Vol rate/Area] 88 mL/min/{1.73_m2} >60 [facility] Comment on above: mL/min/1.73m2 CKD-EP I Creatinine Equation (2020) LDL calc ser/plasOrdered By: Shayy Curtis on 09-07-2024 Cholesterol in LDL [Mass/Vol] 64 mg/dL [facility] Comment on above: Iqnibavdhh=035-576 m g/dL & Higher Xmix=455 mg/dL or greater Laboratory - Chemistry and C hemistry - challengeOrdered By: Shayy Curtis on 09-07-2024 AST [Catalytic activity/Vol] 33 U/L <38 [facility] Potassium measurement (mass/ volume)Ordered By: Shayy Curtis on 09-07-2024 Potassium (Unsp spec) [Mass/Vol] 3.8 mmol/L 3.3-5.1 [facility] Prothrombin Time w/INRon INR Normal [facility] Comment on above: Result Comment: Canc elled via OM: Order cancelled - Patient discharged Performed By: #### L 300.3900 #### [facility] [address] [place], [place], [id number] PROTIME Normal 11.7-14.9 [facility] Comment on above: Result Comment: Canc elled via OM: Order cancelled - Patient discharged Performed By: #### L 300.3900 #### [facility] [address] [place], [place], [id number] Screening total cholesterol/ high density lipoprotein (HDL) cholesterol ratioOrdered By: Shayy Curtis on 09-07-2024 Cholesterol.total/Cho lesterol in HDL [Mass ratio] 3.75 {ratio} [facility] Serum creatinine measurement (mass/volume)Ordered By: Shayy Curtis on 09-07-2024 Creatinine [Mass/Vol] 0.70 mg/dL 0.70-1.20 [facility] Serum globulin measurementOr dered By: Shayy Curtis on 09-07-2024 Globulin (S) [Mass/Vol] 2.5 g/dL 2.2-4.2 [facility] Serum glucose measurement (m ass/volume)Ordered By: Shayy Curtis on 09-07-2024 Glucose [Mass/Vol] 107 mg/dL High 70-99 [facility] Serum or plasma alanine franks otransferase (ALT) measurementOrdered By: Shayy Curtis on 09-07-2024 ALT [Catalytic activity/Vol] 23 U/L <47 [facility] Serum or plasma albumin alvaro urement (mass/volume)Ordered By: Shayy Curtis on 09-07-2024 Albumin [Mass/Vol] 3.7 g/dL 3.4-4.8 [facility] Serum or plasma albumin/glob ulin mass ratioOrdered By: Shayy Curtis on 09-07-2024 Albumin/Globulin [Mass ratio] 1.5 {ratio} 0.9-2.4 [facility] Serum or plasma alkaline carole sphatase measurementOrdered By: Shayy Curtis on 09-07-2024 ALP [Catalytic activity/Vol] 123 U/L 40-129 [facility] Serum or plasma calcium alvaro urement (mass/volume)Ordered By: Shayy Salazartomyradha on 09-07-2024 Calcium [Mass/Vol] 8.7 mg/dL 7.6-11.0 [facility] Serum or plasma cholesterol in HDL measurement (mass/volume)Ordered By: Shayy Curtis on 09-07-2024 Cholesterol in HDL [Mass/Vol] 28 mg/dL Low >40 [facility] Comment on above: National Cholesterol Education Program (NCEP) guidelines:<40 mg/dL: Low HDL-cholesterol (major risk factor for CHD)>= 60 mg/dL: High HDL-cholesterol (negative risk factor for CHD)HDL-cholesterol is affected by a number of factors, e.g. smoking, exercise, hormones, sex and age. Serum or plasma cholesterol measurement (mass/volume)Ordered By: Shayy Curtis on 09-07-2024 Cholesterol [Mass/Vol] 105 mg/dL <201 [facility] Comment on above: Cholesterol level, D esirable <200 mg/dLBorderline high cholesterol 200-239 mg/dLHigh cholesterol >=240 mg/dLRecommendations of the NCEP Adult Treatment Panel for the following risk-cutoff thresholds for the [place] population. Serum or plasma urea nitroge n measurement (mass/volume)Ordered By: Shayy Curtis on 09-07-2024 Urea nitrogen [Mass/Vol] 10 mg/dL 4-19 [facility] Sodium levelOrdered By: Latrice simonraffiradha Curtis 09-07-2024 Sodium [Moles/Vol] 139 mmol/L 133-145 [facility] TSH DL <= 0.005 mIU/L QnOrde red By: Shayy Curtis on 09-07-2024 TSH Qn 0.300 uIU/mL 0.300-4.20 0 [facility] Total proteinOrdered By: Yazan Curtis on 09-07-2024 Protein [Mass/Vol] 6.2 g/dL 5.9-8.4 [facility] Triglycerides measurementOrd ered By: Latricetimmy Martintomyradha on 09-07-2024 Triglyceride [Mass/Vol] 63 mg/dL <199 [facility] Comment on above: The drugs N-Acetylcy steine and Metamizole may falsely depress this assay. Normal range: <150 mg/dLBorderline High: 150-199 mg/dLHigh: 200-499 mg/dLVery High: >500 mg/dL Vitamin B12 ser/plasOrdered By: Shayy Curtis on 09-07-2024 Cobalamin (Vitamin B12) [Mass/Vol] 519 pg/mL 180-914 [facility] Absolute lymphocyte countOrd ered By: Navid Dominguez on 09-06-2024 Lymphocytes Auto (Unsp spec) [#/Vol] 1.28 10*3/uL 0.83-4.51 [facility] Absolute neutrophil countOrd ered By: Navid Dominguez on 09-06-2024 Neutrophils (Bld) [#/Vol] 5.2 10*3/uL 2.0-7.7 [facility] Anion gap in Serum or Plasma Ordered By: Navid Dominguez on 09-06-2024 Anion gap [Moles/Vol] 10 mmol/L 5-15 [facility] Automated blood erythrocyte countOrdered By: Navid Dominguez on 09-06-2024 RBC (Bld) [#/Vol] 4.39 10*6/uL Low 4.6-6.2 [facility] Comment on above: Performed By: #### L 100.0100, L500.2500, L300.3900 #### [facility] [address] [place], [address] Automated blood hematocrit ( percentage)Ordered By: Navid Dominguez on 09-06-2024 Hematocrit (Bld) [Volume fraction] 33.6 % Low 40-54 [facility] Comment on above: Performed By: #### L 100.0100, L500.2500, L300.3900 #### [facility] [address] [place], [address] Automated lymphocyte count a s percentage of total leukocytesOrdered By: Navid Dominguez on 09-06-2024 Lymphocytes/100 WBC Auto (Unsp spec) 16.4 % Low 19-41 [facility] BUN/creatinine ratioOrdered By: Navid Dominguez on 09-06-2024 Urea nitrogen/Creatinine [Mass ratio] 14.4 mg/mg 10- [facility] Basic Metabolic Profile (BMP )on 09-06-2024 BUN/CRE 14.4 RATIO Normal 10-20 [facility] Comment on above: Performed By: #### M 200.1000, L509.7001, L101.9900, L501.6710 #### [facility] [address] [place], [address] ECRCL 64.10 ml/min Normal 50-250 [facility] Comment on above: Performed By: #### M 200.1000, L509.7001, L101.9900, L501.6710 #### [facility] [address] [place], [address] GAP 10 Normal 5-15 [facility] Comment on above: Performed By: #### M 200.1000, L509.7001, L101.9900, L501.6710 #### [facility] [address] [place], [address] Potassium [Moles/Vol] 3.5 mmol/L Normal 3.3-5.1 [facility] Comment on above: Performed By: #### M 200.1000, L509.7001, L101.9900, L501.6710 #### [facility] [address] [place], [address] Basophil percentageOrdered B y: Navid Dominguez on 09-06-2024 Basophils/100 WBC (Bld) 1.0 % Normal 0-1 [facility] Comment on above: Performed By: #### L 100.0100, L500.2500, L300.3900 #### [facility] [address] [place], [address] CBC W/Diff, Automatedon 08-21 Absolute Lymph 1.28 X10 3/uL Normal 0.83-4.51 [facility] Comment on above: Performed By: #### L 100.0100, L500.2500, L300.3900 #### [facility] [address] [place], [address] Absolute Neut 5.2 X10 3/uL Normal 2.0-7.7 [facility] Comment on above: Performed By: #### L 100.0100, L500.2500, L300.3900 #### [facility] [address] [place], [address] IG% 0.400 Normal 0.0-0.9 [facility] Comment on above: Result Comment: IG% - Immature Granulocytes (promyelocytes, myelocytes and metamyelocytes) > 1% indicates that a LEFT SHIFT is Present. Performed By: #### L 100.0100, L500.2500, L300.3900 #### [facility] [address] [place], [address] Lymphocytes/100 WBC (Bld) 16.4 % Low 19-41 [facility] Comment on above: Performed By: #### L 100.0100, L500.2500, L300.3900 #### [facility] [address] [place], [address] Nucleated RBC (Bld) [#/Vol] 0 10*3/uL Normal 0-5 [facility] Comment on above: Performed By: #### L 100.0100, L500.2500, L300.3900 #### [facility] [address] [place], [address] RDW SD 48.2 fl High 35.1-43.9 [facility] Comment on above: Performed By: #### L 100.0100, L500.2500, L300.3900 #### [facility] [address] [place], [address] Carbon dioxide, total [Moles /volume] in Central venous bloodOrdered By: Navid Dominguez on 09-06-2024 CO2 [Moles/Vol] 24.9 mmol/L Normal 21.0-32.0 [facility] Comment on above: Performed By: #### M 200.1000, L509.7001, L101.9900, L501.6710 #### [facility] [address] [place], [address] Chloride assayOrdered By: Cameron Dominguez on 09-06-2024 Chloride [Moles/Vol] 106 mmol/L Normal 98-108 [facility] Comment on above: Performed By: #### M 200.1000, L509.7001, L101.9900, L501.6710 #### [facility] [address] [place], [address] Eosinophil percentageOrdered By: Navid Dominguez on 09-06-2024 Eosinophils/100 WBC (Bld) 6.3 % High 0-5 [facility] Comment on above: Performed By: #### L 100.0100, L500.2500, L300.3900 #### [facility] [address] [place], [address] Erythrocyte distribution wid th ratioOrdered By: Navid Dominguez on 09-06-2024 Erythrocyte distribution width (RBC) [Ratio] 17.4 % High 11.6-14.6 [facility] Comment on above: Performed By: #### L 100.0100, L500.2500, L300.3900 #### [facility] [address] [place], [address] Erythrocyte distribution wid th standard deviationOrdered By: Navid Dominguez on 09-06-2024 Erythrocyte distribution width (RBC) [Ratio] 48.2 fl High 35.1-43.9 [facility] Glomerular filtration rate ( GFR) estimation/1.73 sq m using serum, plasma, or whole bOrdered By: Navid Dominguez on 09-06-2024 GFR/1.73 sq M.predicted among non-blacks MDRD (S/P/Bld) [Vol rate/Area] 87 mL/min/{1.73_m2} Normal >60 [facility] Comment on above: mL/min/1.73m2 CKD-EP I Creatinine Equation (2020) Result Comment: mL/m in/1.73m2 CKD-EPI Creatinine Equation (2020) Performed By: #### M 200.1000, L509.7001, L101.9900, L501.6710 #### [facility] [address] [place], [place], [id number] Hemoglobin measurementOrdere d By: Navid Dominguez on 09-06-2024 Hemoglobin (Bld) [Mass/Vol] 10.8 g/dL Low 13.0-16.5 [facility] Comment on above: Performed By: #### L 100.0100, L500.2500, L300.3900 #### [facility] [address] [place], [place], [id number] Immature granulocytes/100 WB C Auto (Bld)Ordered By: Navid Dominguez on 09-06-2024 Immature granulocytes/100 WBC (Bld) 0.400 % 0.0-0.9 [facility] Comment on above: IG% - Immature Granu locytes (promyelocytes, myelocytes and metamyelocytes) > 1% indicates that a LEFT SHIFT is Present. International normalized rat io (INR) calculationOrdered By: Navid Dominguez on 09-06-2024 INR Coag (Bld) [Relative time] 2.4 {INR} [facility] MCV (mean corpuscular volume ) determinationOrdered By: Navid Dominguez on 09-06-2024 MCV (RBC) [Entitic vol] 76.5 fL Low 80-94 [facility] Comment on above: Performed By: #### L 100.0100, L500.2500, L300.3900 #### [facility] [address] [place], [address] Mean corpuscular hemoglobin (MCH) determinationOrdered By: Navid Dominguez on 09-06-2024 MCH (RBC) [Entitic mass] 24.6 pg Low 27.0-32.0 [facility] Comment on above: Performed By: #### L 100.0100, L500.2500, L300.3900 #### [facility] [address] [place], [address] Mean corpuscular hemoglobin concentration (MCHC) determinationOrdered By: Navid Dominguez on 09-06-2024 MCHC (RBC) [Mass/Vol] 32.1 g/dL Normal 32-36 [facility] Comment on above: Performed By: #### L 100.0100, L500.2500, L300.3900 #### [facility] [address] [place], [address] Mean platelet volume determi nationOrdered By: Navid Dominguez on 09-06-2024 Platelet mean volume (Bld) [Entitic vol] 9.4 fL Normal 6.2-12.0 [facility] Comment on above: Performed By: #### L 100.0100, L500.2500, L300.3900 #### [facility] [address] [place], [address] Monocyte percentageOrdered B y: Navid Dominguez on 09-06-2024 Monocytes/100 WBC (Bld) 9.1 % Normal 0-10 [facility] Comment on above: Performed By: #### L 100.0100, L500.2500, L300.3900 #### [facility] [address] [place], [address] Neutrophil percentageOrdered By: Navid Dominguez on 09-06-2024 Neutrophils/100 WBC (Bld) 66.8 % Normal 47-70 [facility] Comment on above: Performed By: #### L 100.0100, L500.2500, L300.3900 #### [facility] [address] [place], [address] Nucleated red blood cell per centageOrdered By: Navid Dominguez on 09-06-2024 Nucleated RBC/100 WBC (Bld) [Ratio] 0 % 0-5 [facility] Platelet countOrdered By: Cameron Dominguez on 09-06-2024 Platelets (Bld) [#/Vol] 325 10*3/uL Normal 150-450 [facility] Comment on above: Performed By: #### L 100.0100, L500.2500, L300.3900 #### [facility] [address] [place], [address] Potassium measurement (mass/ volume)Ordered By: Navid Dominguez on 09-06-2024 Potassium (Unsp spec) [Mass/Vol] 3.5 mmol/L 3.3-5.1 [facility] Prothrombin Time w/INRon INR Coag (PPP) [Relative time] 2.4 {INR} Normal [facility] Comment on above: Performed By: #### M 200.1000, L509.7001, L101.9900, L501.6710 #### [facility] [address] [place], [address] Prothrombin timeOrdered By: Navid Dominguez on 09-06-2024 PT Coag (PPP) [Time] 27.0 s High 11.7-14.9 [facility] Comment on above: Performed By: #### M 200.1000, L509.7001, L101.9900, L501.6710 #### [facility] [address] [place], [address] Serum creatinine measurement (mass/volume)Ordered By: Navid Dominguez on 09-06-2024 Creatinine [Mass/Vol] 0.73 mg/dL Normal 0.70-1.20 [facility] Comment on above: Performed By: #### M 200.1000, L509.7001, L101.9900, L501.6710 #### [facility] [address] [place], [address] Serum glucose measurement (m ass/volume)Ordered By: Navid Dominguez on 09-06-2024 Glucose [Mass/Vol] 109 mg/dL High 70-99 [facility] Comment on above: Performed By: #### M 200.1000, L509.7001, L101.9900, L501.6710 #### [facility] [address] [place], [address] Serum or plasma calcium alvaro urement (mass/volume)Ordered By: Navid Dominguez on 09-06-2024 Calcium [Mass/Vol] 8.7 mg/dL Normal 7.6-11.0 [facility] Comment on above: Performed By: #### M 200.1000, L509.7001, L101.9900, L501.6710 #### [facility] [address] [place], [address] Serum or plasma urea nitroge n measurement (mass/volume)Ordered By: Navid Dominguez on 09-06-2024 Urea nitrogen [Mass/Vol] 11 mg/dL Normal 4-19 [facility] Comment on above: Performed By: #### M 200.1000, L509.7001, L101.9900, L501.6710 #### [facility] [address] [place], [address] Sodium levelOrdered By: Kamilah Dominguez on 09-06-2024 Sodium [Moles/Vol] 141 mmol/L Normal 133-145 [facility] Comment on above: Performed By: #### M 200.1000, L509.7001, L101.9900, L501.6710 #### [facility] [address] [place], [address] White blood cell (WBC) count Ordered By: Navid Dominguez on 09-06-2024 WBC (Bld) [#/Vol] 7.8 10*3/uL Normal 4.4-11.0 [facility] Comment on above: Performed By: #### L 100.0100, L500.2500, L300.3900 #### [facility] [address] [place], [address] Basic Metabolic Profile (BMP )on 09-05-2024 BUN/CRE 13.4 RATIO Normal 10-20 [facility] Comment on above: Performed By: #### M 200.1000, L509.7001, L101.9900, L501.6710 #### [facility] [address] [place], [address] Calcium [Mass/Vol] 8.6 mg/dL Normal 7.6-11.0 [facility] Comment on above: Performed By: #### M 200.1000, L509.7001, L101.9900, L501.6710 #### [facility] [address] [place], [address] Chloride [Moles/Vol] 105 mmol/L Normal 98-108 [facility] Comment on above: Performed By: #### M 200.1000, L509.7001, L101.9900, L501.6710 #### [facility] [address] [place], [address] CO2 [Moles/Vol] 21.9 mmol/L Normal 21.0-32.0 [facility] Comment on above: Performed By: #### M 200.1000, L509.7001, L101.9900, L501.6710 #### [facility] [address] [place], [address] Creatinine [Mass/Vol] 0.62 mg/dL Low 0.70-1.20 [facility] Comment on above: Performed By: #### M 200.1000, L509.7001, L101.9900, L501.6710 #### [facility] [address] [place], [address] ECRCL 64.10 ml/min Normal 50-250 [facility] Comment on above: Performed By: #### M 200.1000, L509.7001, L101.9900, L501.6710 #### [facility] [address] [place], [address] GAP 12 Normal 5-15 [facility] Comment on above: Performed By: #### M 200.1000, L509.7001, L101.9900, L501.6710 #### [facility] [address] [place], [address] GFR/1.73 sq M.predicted among non-blacks MDRD (S/P/Bld) [Vol rate/Area] 91 mL/min/{1.73_m2} Normal >60 [facility] Comment on above: Result Comment: mL/m in/1.73m2 CKD-EPI Creatinine Equation (2020) Performed By: #### M 200.1000, L509.7001, L101.9900, L501.6710 #### [facility] [address] [place], [address] Glucose [Mass/Vol] 119 mg/dL High 70-99 [facility] Comment on above: Performed By: #### M 200.1000, L509.7001, L101.9900, L501.6710 #### [facility] [address] [place], [address] Potassium [Moles/Vol] 3.3 mmol/L Normal 3.3-5.1 [facility] Comment on above: Performed By: #### M 200.1000, L509.7001, L101.9900, L501.6710 #### [facility] [address] [place], [address] Sodium [Moles/Vol] 139 mmol/L Normal 133-145 [facility] Comment on above: Performed By: #### M 200.1000, L509.7001, L101.9900, L501.6710 #### [facility] [address] [place], [address] Urea nitrogen [Mass/Vol] 8 mg/dL Normal 4-19 [facility] Comment on above: Performed By: #### M 200.1000, L509.7001, L101.9900, L501.6710 #### [facility] [address] [place], [address] Bilirubin Test strip Ql (U)O rdered By: Marta Black on 09-05-2024 Bilirubin Ql (U) Negative Negative [facility] CBC W/Diff, Automatedon 08-21 Absolute Lymph 0.96 X10 3/uL Normal 0.83-4.51 [facility] Comment on above: Performed By: #### M 200.1000, L509.7001, L101.9900, L501.6710 #### [facility] [address] [place], [address] Absolute Neut 7.6 X10 3/uL Normal 2.0-7.7 [facility] Comment on above: Performed By: #### M 200.1000, L509.7001, L101.9900, L501.6710 #### [facility] [address] [place], [address] Basophils/100 WBC (Bld) 0.7 % Normal 0-1 [facility] Comment on above: Performed By: #### M 200.1000, L509.7001, L101.9900, L501.6710 #### [facility] [address] [place], [address] Eosinophils/100 WBC (Bld) 4.0 % Normal 0-5 [facility] Comment on above: Performed By: #### M 200.1000, L509.7001, L101.9900, L501.6710 #### [facility] [address] [place], [address] Erythrocyte distribution width (RBC) [Ratio] 17.6 % High 11.6-14.6 [facility] Comment on above: Performed By: #### M 200.1000, L509.7001, L101.9900, L501.6710 #### [facility] [address] [place], [address] Hematocrit (Bld) [Volume fraction] 35.3 % Low 40-54 [facility] Comment on above: Performed By: #### M 200.1000, L509.7001, L101.9900, L501.6710 #### [facility] [address] [place], [address] Hemoglobin (Bld) [Mass/Vol] 11.3 g/dL Low 13.0-16.5 [facility] Comment on above: Performed By: #### M 200.1000, L509.7001, L101.9900, L501.6710 #### [facility] [address] [place], [address] IG% 0.400 Normal 0.0-0.9 [facility] Comment on above: Result Comment: IG% - Immature Granulocytes (promyelocytes, myelocytes and metamyelocytes) > 1% indicates that a LEFT SHIFT is Present. Performed By: #### M 200.1000, L509.7001, L101.9900, L501.6710 #### [facility] [address] [place], [address] Lymphocytes/100 WBC (Bld) 9.8 % Low 19-41 [facility] Comment on above: Performed By: #### M 200.1000, L509.7001, L101.9900, L501.6710 #### [facility] [address] [place], [address] MCH (RBC) [Entitic mass] 24.4 pg Low 27.0-32.0 [facility] Comment on above: Performed By: #### M 200.1000, L509.7001, L101.9900, L501.6710 #### [facility] [address] [place], [address] MCHC (RBC) [Mass/Vol] 32.0 g/dL Normal 32-36 [facility] Comment on above: Performed By: #### M 200.1000, L509.7001, L101.9900, L501.6710 #### [facility] [address] [place], [address] MCV (RBC) [Entitic vol] 76.2 fL Low 80-94 [facility] Comment on above: Performed By: #### M 200.1000, L509.7001, L101.9900, L501.6710 #### [facility] [address] [place], [address] Monocytes/100 WBC (Bld) 7.9 % Normal 0-10 [facility] Comment on above: Performed By: #### M 200.1000, L509.7001, L101.9900, L501.6710 #### [facility] [address] [place], [address] Neutrophils/100 WBC (Bld) 77.2 % High 47-70 [facility] Comment on above: Performed By: #### M 200.1000, L509.7001, L101.9900, L501.6710 #### [facility] [address] [place], [address] Nucleated RBC (Bld) [#/Vol] 0 10*3/uL Normal 0-5 [facility] Comment on above: Performed By: #### M 200.1000, L509.7001, L101.9900, L501.6710 #### [facility] [address] [place], [address] Platelet mean volume (Bld) [Entitic vol] 9.3 fL Normal 6.2-12.0 [facility] Comment on above: Performed By: #### M 200.1000, L509.7001, L101.9900, L501.6710 #### [facility] [address] [place], [address] Platelets (Bld) [#/Vol] 329 10*3/uL Normal 150-450 [facility] Comment on above: Performed By: #### M 200.1000, L509.7001, L101.9900, L501.6710 #### [facility] [address] [place], [address] RBC (Bld) [#/Vol] 4.63 10*6/uL Normal 4.6-6.2 [facility] Comment on above: Performed By: #### M 200.1000, L509.7001, L101.9900, L501.6710 #### [facility] [address] [place], [address] RDW SD 47.9 fl High 35.1-43.9 [facility] Comment on above: Performed By: #### M 200.1000, L509.7001, L101.9900, L501.6710 #### [facility] [address] [place], [address] WBC (Bld) [#/Vol] 9.8 10*3/uL Normal 4.4-11.0 [facility] Comment on above: Performed By: #### M 200.1000, L509.7001, L101.9900, L501.6710 #### [facility] [address] [place], [address] Ketones Test strip Ql (U)Ord ered By: Marta Black on 09-05-2024 Ketones Ql (U) Negative Negative [facility] Microscopic analysis of urin e for red blood cells (RBC)Ordered By: Marta Black on 09-05-2024 Microscopic analysis of urine for red blood cells (RBC) 0-5 SEEN /hpf 0-5 [facility] Mucus LM Ql (Urine sed)Order ed By: Marta Black on 09-05-2024 Mucus Ql (Urine sed) 0 SEEN /hpf [facility] Nitrite Test strip Ql (U)Ord ered By: Marta Black on 09-05-2024 Nitrite Ql (U) Negative Negative [facility] Protein Test strip Ql (U)Ord ered By: Marta Black on 09-05-2024 Protein Ql (U) 15 mg/dl High Negative [facility] Prothrombin Time w/INRon INR Coag (PPP) [Relative time] 2.2 {INR} Normal [facility] Comment on above: Performed By: #### M 200.1000, L509.7001, L101.9900, L501.6710 #### [facility] [address] [place], [address] PT Coag (PPP) [Time] 24.7 s High 11.7-14.9 [facility] Comment on above: Performed By: #### M 200.1000, L509.7001, L101.9900, L501.6710 #### [facility] [address] [place], [address] Squamous epithelial cells de tection in urine sediment by light microscopyOrdered By: Marta Black on 09-05-2024 Epithelial cells.squamous LM Ql (Urine sed) 0 SEEN /hpf 0-5 [facility] Urinalysis, Completeon 09-05 BACTERIA RARE Normal None Seen [facility] Comment on above: Order Comment: CLEAN CATCH Performed By: #### M 200.1000, L509.7001, L101.9900, L501.6710 #### [facility] [address] [place], [address] RBC 0-5 SEEN Normal 0-5 [facility] Comment on above: Order Comment: CLEAN CATCH Performed By: #### M 200.1000, L509.7001, L101.9900, L501.6710 #### [facility] [address] [place], [address] WBC 0-5 SEEN Normal 0-5 [facility] Comment on above: Order Comment: CLEAN CATCH Performed By: #### M 200.1000, L509.7001, L101.9900, L501.6710 #### [facility] [address] [place], [address] BILIRUBIN URINE Negative Normal Negative [facility] Comment on above: Order Comment: CLEAN CATCH Performed By: #### M 200.1000, L509.7001, L101.9900, L501.6710 #### [facility] [address] [place], [address] Clarity (U) Clear Normal Clear [facility] Comment on above: Order Comment: CLEAN CATCH Performed By: #### M 200.1000, L509.7001, L101.9900, L501.6710 #### [facility] [address] [place], [address] Color (U) Straw Normal Yellow [facility] Comment on above: Order Comment: CLEAN CATCH Performed By: #### M 200.1000, L509.7001, L101.9900, L501.6710 #### [facility] [address] [place], [address] GLUCOSE, UR Normal Normal Normal [facility] Comment on above: Order Comment: CLEAN CATCH Performed By: #### M 200.1000, L509.7001, L101.9900, L501.6710 #### [facility] [address] [place], [address] KETONE UR Negative Normal Negative [facility] Comment on above: Order Comment: CLEAN CATCH Performed By: #### M 200.1000, L509.7001, L101.9900, L501.6710 #### [facility] [address] [place], [address] LEUK ESTERASE Negative Normal Negative [facility] Comment on above: Order Comment: CLEAN CATCH Performed By: #### M 200.1000, L509.7001, L101.9900, L501.6710 #### [facility] [address] [place], [address] Nitrite Ql (U) Negative Normal Negative [facility] Comment on above: Order Comment: CLEAN CATCH Performed By: #### M 200.1000, L509.7001, L101.9900, L501.6710 #### [facility] [address] [place], [address] OCCULT BLOOD-UR 25 /ul Abnormal Negative [facility] Comment on above: Order Comment: CLEAN CATCH Performed By: #### M 200.1000, L509.7001, L101.9900, L501.6710 #### [facility] [address] [place], [address] pH UR 7.0 Normal 5.0 - 8.0 [facility] Comment on above: Order Comment: CLEAN CATCH Performed By: #### M 200.1000, L509.7001, L101.9900, L501.6710 #### [facility] [address] [place], [address] PROT DIPSTX 15 mg/dl Abnormal Negative [facility] Comment on above: Order Comment: CLEAN CATCH Performed By: #### M 200.1000, L509.7001, L101.9900, L501.6710 #### [facility] [address] [place], [address] SP.GR. DIPSTX 1.005 Normal 1.002-1.03 0 [facility] Comment on above: Order Comment: CLEAN CATCH Performed By: #### M 200.1000, L509.7001, L101.9900, L501.6710 #### [facility] [address] [place], [address] UROBILI Normal Normal Normal [facility] Comment on above: Order Comment: CLEAN CATCH Performed By: #### M 200.1000, L509.7001, L101.9900, L501.6710 #### [facility] [address] [place], [address] EPI,SQUAMOUS 0 SEEN Normal 0-5 [facility] Comment on above: Order Comment: CLEAN CATCH Performed By: #### M 200.1000, L509.7001, L101.9900, L501.6710 #### [facility] [address] [place], [address] Mucus Ql (Urine sed) 0 SEEN Normal [facility] Comment on above: Order Comment: CLEAN CATCH Performed By: #### M 200.1000, L509.7001, L101.9900, L501.6710 #### [facility] [address] [place], [address] Urine clarityOrdered By: Magnolia Black on 09-05-2024 Clarity (U) Clear Clear [facility] Urine color determinationOrd ered By: Marta Black on 09-05-2024 Color (U) Straw Yellow [facility] Urine glucose detectionOrder ed By: Marta Black on 09-05-2024 Glucose Ql (U) Normal mg/dl Normal [facility] Urine leukocyte esterase det ection by dipstickOrdered By: Marta Black on 09-05-2024 Leukocyte esterase Test strip Ql (U) Negative Negative [facility] Urine pHOrdered By: Marta Black on 09-05-2024 pH (U) 7.0 [pH] 5.0 - 8.0 [facility] Urine sediment bacteria coun t by microscopy (number/high power field)Ordered By: Marta Black on 09-05-2024 Bacteria LM.HPF (Urine sed) [#/Area] RARE /hpf None Seen [facility] Urine specific gravity measu rementOrdered By: Marta Black on 09-05-2024 Specific gravity (U) [Rel density] 1.005 1.002-1.03 0 [facility] Urine urobilinogen measureme ntOrdered By: Marta Black on 09-05-2024 Urobilinogen Ql (U) Normal mg/dl Normal [facility] White blood cell countOrdere d By: Marta Black on 09-05-2024 White blood cell count 0-5 SEEN /hpf 0-5 [facility] Basic Metabolic Profile (BMP )on 09-04-2024 BUN/CRE 17.3 RATIO Normal 10-20 [facility] Comment on above: Performed By: #### M 200.1000, L509.7001, L101.9900, L501.6710 #### [facility] [address] [place], [address] Calcium [Mass/Vol] 8.2 mg/dL Normal 7.6-11.0 [facility] Comment on above: Performed By: #### M 200.1000, L509.7001, L101.9900, L501.6710 #### [facility] [address] [place], [address] Chloride [Moles/Vol] 107 mmol/L Normal 98-108 [facility] Comment on above: Performed By: #### M 200.1000, L509.7001, L101.9900, L501.6710 #### [facility] [address] [place], [address] CO2 [Moles/Vol] 20.9 mmol/L Low 21.0-32.0 [facility] Comment on above: Performed By: #### M 200.1000, L509.7001, L101.9900, L501.6710 #### [facility] [address] [place], [address] Creatinine [Mass/Vol] 0.72 mg/dL Normal 0.70-1.20 [facility] Comment on above: Performed By: #### M 200.1000, L509.7001, L101.9900, L501.6710 #### [facility] [address] [place], [address] ECRCL 64.10 ml/min Normal 50-250 [facility] Comment on above: Performed By: #### M 200.1000, L509.7001, L101.9900, L501.6710 #### [facility] [address] [place], [address] GAP 11 Normal 5-15 [facility] Comment on above: Performed By: #### M 200.1000, L509.7001, L101.9900, L501.6710 #### [facility] [address] [place], [address] GFR/1.73 sq M.predicted among non-blacks MDRD (S/P/Bld) [Vol rate/Area] 87 mL/min/{1.73_m2} Normal >60 [facility] Comment on above: Result Comment: mL/m in/1.73m2 CKD-EPI Creatinine Equation (2020) Performed By: #### M 200.1000, L509.7001, L101.9900, L501.6710 #### [facility] [address] [place], [address] Glucose [Mass/Vol] 120 mg/dL High 70-99 [facility] Comment on above: Performed By: #### M 200.1000, L509.7001, L101.9900, L501.6710 #### [facility] [address] [place], [address] Potassium [Moles/Vol] 3.5 mmol/L Normal 3.3-5.1 [facility] Comment on above: Performed By: #### M 200.1000, L509.7001, L101.9900, L501.6710 #### [facility] [address] [place], [address] Sodium [Moles/Vol] 139 mmol/L Normal 133-145 [facility] Comment on above: Performed By: #### M 200.1000, L509.7001, L101.9900, L501.6710 #### [facility] [address] [place], [address] Urea nitrogen [Mass/Vol] 12 mg/dL Normal 4-19 [facility] Comment on above: Performed By: #### M 200.1000, L509.7001, L101.9900, L501.6710 #### [facility] [address] [place], [address] CBC W/Diff, Automatedon 06-03 27-2024 Absolute Lymph 0.89 X10 3/uL Normal 0.83-4.51 [facility] Comment on above: Performed By: #### M 200.1000, L509.7001, L101.9900, L501.6710 #### [facility] [address] [place], [address] Absolute Neut 8.9 X10 3/uL High 2.0-7.7 [facility] Comment on above: Performed By: #### M 200.1000, L509.7001, L101.9900, L501.6710 #### [facility] [address] [place], [address] Basophils/100 WBC (Bld) 0.8 % Normal 0-1 [facility] Comment on above: Performed By: #### M 200.1000, L509.7001, L101.9900, L501.6710 #### [facility] [address] [place], [address] Eosinophils/100 WBC (Bld) 5.3 % High 0-5 [facility] Comment on above: Performed By: #### M 200.1000, L509.7001, L101.9900, L501.6710 #### [facility] [address] [place], [address] Erythrocyte distribution width (RBC) [Ratio] 17.5 % High 11.6-14.6 [facility] Comment on above: Performed By: #### M 200.1000, L509.7001, L101.9900, L501.6710 #### [facility] [address] [place], [address] Hematocrit (Bld) [Volume fraction] 33.3 % Low 40-54 [facility] Comment on above: Performed By: #### M 200.1000, L509.7001, L101.9900, L501.6710 #### [facility] [address] [place], [address] Hemoglobin (Bld) [Mass/Vol] 10.7 g/dL Low 13.0-16.5 [facility] Comment on above: Performed By: #### M 200.1000, L509.7001, L101.9900, L501.6710 #### [facility] [address] [place], [address] IG% 0.400 Normal 0.0-0.9 [facility] Comment on above: Result Comment: IG% - Immature Granulocytes (promyelocytes, myelocytes and metamyelocytes) > 1% indicates that a LEFT SHIFT is Present. Performed By: #### M 200.1000, L509.7001, L101.9900, L501.6710 #### [facility] [address] [place], [address] Lymphocytes/100 WBC (Bld) 7.8 % Low 19-41 [facility] Comment on above: Performed By: #### M 200.1000, L509.7001, L101.9900, L501.6710 #### [facility] [address] [place], [address] MCH (RBC) [Entitic mass] 24.6 pg Low 27.0-32.0 [facility] Comment on above: Performed By: #### M 200.1000, L509.7001, L101.9900, L501.6710 #### [facility] [address] [place], [address] MCHC (RBC) [Mass/Vol] 32.1 g/dL Normal 32-36 [facility] Comment on above: Performed By: #### M 200.1000, L509.7001, L101.9900, L501.6710 #### [facility] [address] [place], [address] MCV (RBC) [Entitic vol] 76.6 fL Low 80-94 [facility] Comment on above: Performed By: #### M 200.1000, L509.7001, L101.9900, L501.6710 #### [facility] [address] [place], [address] Monocytes/100 WBC (Bld) 7.7 % Normal 0-10 [facility] Comment on above: Performed By: #### M 200.1000, L509.7001, L101.9900, L501.6710 #### [facility] [address] [place], [address] Neutrophils/100 WBC (Bld) 78.0 % High 47-70 [facility] Comment on above: Performed By: #### M 200.1000, L509.7001, L101.9900, L501.6710 #### [facility] [address] [place], [address] Nucleated RBC (Bld) [#/Vol] 0 10*3/uL Normal 0-5 [facility] Comment on above: Performed By: #### M 200.1000, L509.7001, L101.9900, L501.6710 #### [facility] [address] [place], [address] Platelet mean volume (Bld) [Entitic vol] 10.6 fL Normal 6.2-12.0 [facility] Comment on above: Performed By: #### M 200.1000, L509.7001, L101.9900, L501.6710 #### [facility] [address] [place], [address] Platelets (Bld) [#/Vol] 305 10*3/uL Normal 150-450 [facility] Comment on above: Performed By: #### M 200.1000, L509.7001, L101.9900, L501.6710 #### [facility] [address] [place], [address] RBC (Bld) [#/Vol] 4.35 10*6/uL Low 4.6-6.2 [facility] Comment on above: Performed By: #### M 200.1000, L509.7001, L101.9900, L501.6710 #### [facility] [address] [place], [address] RDW SD 48.3 fl High 35.1-43.9 [facility] Comment on above: Performed By: #### M 200.1000, L509.7001, L101.9900, L501.6710 #### [facility] [address] [place], [address] WBC (Bld) [#/Vol] 11.4 10*3/uL High 4.4-11.0 [facility] Comment on above: Performed By: #### M 200.1000, L509.7001, L101.9900, L501.6710 #### [facility] [address] [place], [address] Prothrombin Time w/INRon INR Coag (PPP) [Relative time] 1.9 {INR} Normal [facility] Comment on above: Performed By: #### L 300.3900 #### [facility] [address] [place], [address] PT Coag (PPP) [Time] 21.8 s High 11.7-14.9 [facility] Comment on above: Performed By: #### L 300.3900 #### [facility] [address] [place], [address] Basic Metabolic Profile (BMP )on 09-03-2024 BUN/CRE 13.3 RATIO Normal 10-20 [facility] Comment on above: Performed By: #### M 200.1000, L509.7001, L101.9900, L501.6710 #### [facility] [address] [place], [address] Calcium [Mass/Vol] 8.5 mg/dL Normal 7.6-11.0 [facility] Comment on above: Performed By: #### M 200.1000, L509.7001, L101.9900, L501.6710 #### [facility] [address] [place], [address] Chloride [Moles/Vol] 104 mmol/L Normal 98-108 [facility] Comment on above: Performed By: #### M 200.1000, L509.7001, L101.9900, L501.6710 #### [facility] [address] [place], [address] CO2 [Moles/Vol] 19.1 mmol/L Low 21.0-32.0 [facility] Comment on above: Performed By: #### M 200.1000, L509.7001, L101.9900, L501.6710 #### [facility] [address] [place], [address] Creatinine [Mass/Vol] 0.74 mg/dL Normal 0.70-1.20 [facility] Comment on above: Performed By: #### M 200.1000, L509.7001, L101.9900, L501.6710 #### [facility] [address] [place], [address] ECRCL 64.10 ml/min Normal 50-250 [facility] Comment on above: Performed By: #### M 200.1000, L509.7001, L101.9900, L501.6710 #### [facility] [address] [place], [address] GAP 13 Normal 5-15 [facility] Comment on above: Performed By: #### M 200.1000, L509.7001, L101.9900, L501.6710 #### [facility] [address] [place], [address] GFR/1.73 sq M.predicted among non-blacks MDRD (S/P/Bld) [Vol rate/Area] 87 mL/min/{1.73_m2} Normal >60 [facility] Comment on above: Result Comment: mL/m in/1.73m2 CKD-EPI Creatinine Equation (2020) Performed By: #### M 200.1000, L509.7001, L101.9900, L501.6710 #### [facility] [address] [place], [address] Glucose [Mass/Vol] 111 mg/dL High 70-99 [facility] Comment on above: Performed By: #### M 200.1000, L509.7001, L101.9900, L501.6710 #### [facility] [address] [place], [address] Potassium [Moles/Vol] 3.5 mmol/L Normal 3.3-5.1 [facility] Comment on above: Performed By: #### M 200.1000, L509.7001, L101.9900, L501.6710 #### [facility] [address] [place], [address] Sodium [Moles/Vol] 137 mmol/L Normal 133-145 [facility] Comment on above: Performed By: #### M 200.1000, L509.7001, L101.9900, L501.6710 #### [facility] [address] [place], [address] Urea nitrogen [Mass/Vol] 10 mg/dL Normal 4-19 [facility] Comment on above: Performed By: #### M 200.1000, L509.7001, L101.9900, L501.6710 #### [facility] [address] [place], [address] CBC W/Diff, Automatedon 08-21 Absolute Lymph 0.82 X10 3/uL Low 0.83-4.51 [facility] Comment on above: Performed By: #### M 200.1000, L509.7001, L101.9900, L501.6710 #### [facility] [address] [place], [address] Absolute Neut 10.2 X10 3/uL High 2.0-7.7 [facility] Comment on above: Performed By: #### M 200.1000, L509.7001, L101.9900, L501.6710 #### [facility] [address] [place], [address] Basophils/100 WBC (Bld) 0.7 % Normal 0-1 [facility] Comment on above: Performed By: #### M 200.1000, L509.7001, L101.9900, L501.6710 #### [facility] [address] [place], [address] Eosinophils/100 WBC (Bld) 2.8 % Normal 0-5 [facility] Comment on above: Performed By: #### M 200.1000, L509.7001, L101.9900, L501.6710 #### [facility] [address] [place], [address] Erythrocyte distribution width (RBC) [Ratio] 17.5 % High 11.6-14.6 [facility] Comment on above: Performed By: #### M 200.1000, L509.7001, L101.9900, L501.6710 #### [facility] [address] [place], [address] Hematocrit (Bld) [Volume fraction] 35.6 % Low 40-54 [facility] Comment on above: Performed By: #### M 200.1000, L509.7001, L101.9900, L501.6710 #### [facility] [address] [place], [address] Hemoglobin (Bld) [Mass/Vol] 11.3 g/dL Low 13.0-16.5 [facility] Comment on above: Performed By: #### M 200.1000, L509.7001, L101.9900, L501.6710 #### [facility] [address] [place], [address] IG% 0.400 Normal 0.0-0.9 [facility] Comment on above: Result Comment: IG% - Immature Granulocytes (promyelocytes, myelocytes and metamyelocytes) > 1% indicates that a LEFT SHIFT is Present. Performed By: #### M 200.1000, L509.7001, L101.9900, L501.6710 #### [facility] [address] [place], [address] Lymphocytes/100 WBC (Bld) 6.7 % Low 19-41 [facility] Comment on above: Performed By: #### M 200.1000, L509.7001, L101.9900, L501.6710 #### [facility] [address] [place], [address] MCH (RBC) [Entitic mass] 24.7 pg Low 27.0-32.0 [facility] Comment on above: Performed By: #### M 200.1000, L509.7001, L101.9900, L501.6710 #### [facility] [address] [place], [address] MCHC (RBC) [Mass/Vol] 31.7 g/dL Low 32-36 [facility] Comment on above: Performed By: #### M 200.1000, L509.7001, L101.9900, L501.6710 #### [facility] [address] [place], [address] MCV (RBC) [Entitic vol] 77.7 fL Low 80-94 [facility] Comment on above: Performed By: #### M 200.1000, L509.7001, L101.9900, L501.6710 #### [facility] [address] [place], [address] Monocytes/100 WBC (Bld) 6.0 % Normal 0-10 [facility] Comment on above: Performed By: #### M 200.1000, L509.7001, L101.9900, L501.6710 #### [facility] [address] [place], [address] Neutrophils/100 WBC (Bld) 83.4 % High 47-70 [facility] Comment on above: Performed By: #### M 200.1000, L509.7001, L101.9900, L501.6710 #### [facility] [address] [place], [address] Nucleated RBC (Bld) [#/Vol] 0 10*3/uL Normal 0-5 [facility] Comment on above: Performed By: #### M 200.1000, L509.7001, L101.9900, L501.6710 #### [facility] [address] [place], [address] Platelet mean volume (Bld) [Entitic vol] 9.9 fL Normal 6.2-12.0 [facility] Comment on above: Performed By: #### M 200.1000, L509.7001, L101.9900, L501.6710 #### [facility] [address] [place], [address] Platelets (Bld) [#/Vol] 252 10*3/uL Normal 150-450 [facility] Comment on above: Performed By: #### M 200.1000, L509.7001, L101.9900, L501.6710 #### [facility] [address] [place], [address] RBC (Bld) [#/Vol] 4.58 10*6/uL Low 4.6-6.2 [facility] Comment on above: Performed By: #### M 200.1000, L509.7001, L101.9900, L501.6710 #### [facility] [address] [place], [address] RDW SD 48.2 fl High 35.1-43.9 [facility] Comment on above: Performed By: #### M 200.1000, L509.7001, L101.9900, L501.6710 #### [facility] [address] [place], [address] WBC (Bld) [#/Vol] 12.3 10*3/uL High 4.4-11.0 [facility] Comment on above: Performed By: #### M 200.1000, L509.7001, L101.9900, L501.6710 #### [facility] [address] [place], [address] Prothrombin Time w/INRon INR Coag (PPP) [Relative time] 1.8 {INR} Normal [facility] Comment on above: Performed By: #### L 300.3900 #### [facility] [address] [place], [address] PT Coag (PPP) [Time] 20.9 s High 11.7-14.9 [facility] Comment on above: Performed By: #### L 300.3900 #### [facility] [address] [place], [address] Trough vancomycin levelOrder ed By: Marta Black on 09-03-2024 Vancomycin trough [Mass/Vol] 8.2 ug/mL 5.0-15.0 [facility] Comment on above: Recommended goal tro ugh [...] therapy recommended for serious lifethreatening infections include:- Xlyewzyeky-Olierqsafjmb-Xqxdofacd (Ventilator/Healtcare Associated)-Sepsis PLEASE CONTACT PHARMACY SERVICES (#[id number]) FOR INTERPRETATIONOF RESULTS. Vancomycin, Trough Levelon 0 09-03-2024 VANCO, TROUGH 8.2 ug/mL Normal 5.0-15.0 [facility] Comment on above: Order Comment: Comme nts: Trough to be drawn 30 mins prior to scheduled [id number] Result Comment: Ilya mmended goal trough ranges [...] (Ventilator/Healtcare Associated) -Sepsis PLEASE CONTACT PHARM[facility]Y SERVICES (#[id number]) FOR INTERPRETATION OF RESULTS. Performed By: #### M 200.1000, L509.7001, L101.9900, L501.6710 #### [facility] [address] [place], [address] Basic Metabolic Profile (BMP )on 09-02-2024 BUN/CRE 18.9 RATIO Normal 10-20 [facility] Comment on above: Performed By: #### M 200.1000, L509.7001, L101.9900, L501.6710 #### [facility] [address] [place], [address] Calcium [Mass/Vol] 8.5 mg/dL Normal 7.6-11.0 [facility] Comment on above: Performed By: #### M 200.1000, L509.7001, L101.9900, L501.6710 #### [facility] [address] [place], [address] Chloride [Moles/Vol] 105 mmol/L Normal 98-108 [facility] Comment on above: Performed By: #### M 200.1000, L509.7001, L101.9900, L501.6710 #### [facility] [address] [place], [address] CO2 [Moles/Vol] 14.2 mmol/L Low 21.0-32.0 [facility] Comment on above: Performed By: #### M 200.1000, L509.7001, L101.9900, L501.6710 #### [facility] [address] [place], [address] Creatinine [Mass/Vol] 0.75 mg/dL Normal 0.70-1.20 [facility] Comment on above: Performed By: #### M 200.1000, L509.7001, L101.9900, L501.6710 #### [facility] [address] [place], [address] ECRCL 64.10 ml/min Normal 50-250 [facility] Comment on above: Performed By: #### M 200.1000, L509.7001, L101.9900, L501.6710 #### [facility] [address] [place], [address] GAP 15 Normal 5-15 [facility] Comment on above: Performed By: #### M 200.1000, L509.7001, L101.9900, L501.6710 #### [facility] [address] [place], [address] GFR/1.73 sq M.predicted among non-blacks MDRD (S/P/Bld) [Vol rate/Area] 86 mL/min/{1.73_m2} Normal >60 [facility] Comment on above: Result Comment: mL/m in/1.73m2 CKD-EPI Creatinine Equation (2020) Performed By: #### M 200.1000, L509.7001, L101.9900, L501.6710 #### [facility] [address] [place], [address] Glucose [Mass/Vol] 105 mg/dL High 70-99 [facility] Comment on above: Performed By: #### M 200.1000, L509.7001, L101.9900, L501.6710 #### [facility] [address] [place], [address] Potassium [Moles/Vol] 4.3 mmol/L Normal 3.3-5.1 [facility] Comment on above: Result Comment: Hemo lysis present, Results??could be affected. ?? Performed By: #### M 200.1000, L509.7001, L101.9900, L501.6710 #### [facility] [address] [place], [address] Sodium [Moles/Vol] 135 mmol/L Normal 133-145 [facility] Comment on above: Performed By: #### M 200.1000, L509.7001, L101.9900, L501.6710 #### [facility] [address] [place], [address] Urea nitrogen [Mass/Vol] 14 mg/dL Normal 4-19 [facility] Comment on above: Performed By: #### M 200.1000, L509.7001, L101.9900, L501.6710 #### [facility] [address] [place], [address] CBC W/Diff, Automatedon 06-03 25-2024 Absolute Lymph 0.52 X10 3/uL Low 0.83-4.51 [facility] Comment on above: Performed By: #### M 200.1000, L509.7001, L101.9900, L501.6710 #### [facility] [address] [place], [address] Absolute Neut 12.1 X10 3/uL High 2.0-7.7 [facility] Comment on above: Performed By: #### M 200.1000, L509.7001, L101.9900, L501.6710 #### [facility] [address] [place], [address] Basophils/100 WBC (Bld) 0.6 % Normal 0-1 [facility] Comment on above: Performed By: #### M 200.1000, L509.7001, L101.9900, L501.6710 #### [facility] [address] [place], [address] Eosinophils/100 WBC (Bld) 2.2 % Normal 0-5 [facility] Comment on above: Performed By: #### M 200.1000, L509.7001, L101.9900, L501.6710 #### [facility] [address] [place], [address] Erythrocyte distribution width (RBC) [Ratio] 17.8 % High 11.6-14.6 [facility] Comment on above: Performed By: #### M 200.1000, L509.7001, L101.9900, L501.6710 #### [facility] [address] [place], [address] Hematocrit (Bld) [Volume fraction] 39.9 % Low 40-54 [facility] Comment on above: Performed By: #### M 200.1000, L509.7001, L101.9900, L501.6710 #### [facility] [address] [place], [address] Hemoglobin (Bld) [Mass/Vol] 11.9 g/dL Low 13.0-16.5 [facility] Comment on above: Performed By: #### M 200.1000, L509.7001, L101.9900, L501.6710 #### [facility] [address] [place], [address] IG% 0.700 Normal 0.0-0.9 [facility] Comment on above: Result Comment: IG% - Immature Granulocytes (promyelocytes, myelocytes and metamyelocytes) > 1% indicates that a LEFT SHIFT is Present. Performed By: #### M 200.1000, L509.7001, L101.9900, L501.6710 #### [facility] [address] [place], [address] Lymphocytes/100 WBC (Bld) 3.8 % Low 19-41 [facility] Comment on above: Performed By: #### M 200.1000, L509.7001, L101.9900, L501.6710 #### [facility] [address] [place], [address] MCH (RBC) [Entitic mass] 24.5 pg Low 27.0-32.0 [facility] Comment on above: Performed By: #### M 200.1000, L509.7001, L101.9900, L501.6710 #### [facility] [address] [place], [address] MCHC (RBC) [Mass/Vol] 29.8 g/dL Low 32-36 [facility] Comment on above: Performed By: #### M 200.1000, L509.7001, L101.9900, L501.6710 #### [facility] [address] [place], [address] MCV (RBC) [Entitic vol] 82.3 fL Normal 80-94 [facility] Comment on above: Performed By: #### M 200.1000, L509.7001, L101.9900, L501.6710 #### [facility] [address] [place], [address] Monocytes/100 WBC (Bld) 4.8 % Normal 0-10 [facility] Comment on above: Performed By: #### M 200.1000, L509.7001, L101.9900, L501.6710 #### [facility] [address] [place], [address] Neutrophils/100 WBC (Bld) 87.9 % High 47-70 [facility] Comment on above: Performed By: #### M 200.1000, L509.7001, L101.9900, L501.6710 #### [facility] [address] [place], [address] Nucleated RBC (Bld) [#/Vol] 0 10*3/uL Normal 0-5 [facility] Comment on above: Performed By: #### M 200.1000, L509.7001, L101.9900, L501.6710 #### [facility] [address] [place], [address] Platelet mean volume (Bld) [Entitic vol] 10.6 fL Normal 6.2-12.0 [facility] Comment on above: Performed By: #### M 200.1000, L509.7001, L101.9900, L501.6710 #### [facility] [address] [place], [address] Platelets (Bld) [#/Vol] 227 10*3/uL Normal 150-450 [facility] Comment on above: Performed By: #### M 200.1000, L509.7001, L101.9900, L501.6710 #### [facility] [address] [place], [address] RBC (Bld) [#/Vol] 4.85 10*6/uL Normal 4.6-6.2 [facility] Comment on above: Performed By: #### M 200.1000, L509.7001, L101.9900, L501.6710 #### [facility] [address] [place], [address] RDW SD 52.3 fl High 35.1-43.9 [facility] Comment on above: Performed By: #### M 200.1000, L509.7001, L101.9900, L501.6710 #### [facility] [address] [place], [address] WBC (Bld) [#/Vol] 13.8 10*3/uL High 4.4-11.0 [facility] Comment on above: Performed By: #### M 200.1000, L509.7001, L101.9900, L501.6710 #### [facility] [address] [place], [address] Prothrombin Time w/INRon INR Coag (PPP) [Relative time] 1.9 {INR} Normal [facility] Comment on above: Performed By: #### M 200.1000, L509.7001, L101.9900, L501.6710 #### [facility] [address] [place], [address] PT Coag (PPP) [Time] 22.1 s High 11.7-14.9 [facility] Comment on above: Performed By: #### M 200.1000, L509.7001, L101.9900, L501.6710 #### [facility] [address] [place], [address] RESPIRATORY PANEL MOLECULARo n 09-02-2024 RP PANEL ADENOVIRUS Not Detected INFLUENZA A Not Detected INFLUENZA A (SUBTYPE H1) Not Detected INFLUENZA A (SUBTYPE H3) Not Detected INFLUENZA B Not Detected HUMAN METAPHNEUMO Not Detected PARAINFLUENZA 1 Not Detected PARAINFLUENZA 2 Not Detected PARAINFLUENZA 3 Not Detected PARAINFLUENZA 4 Not Detected RHINOVIRUS Not Detected RSV A Not Detected RSV B Not Detected Normal [facility] Comment on above: Performed By: #### M 200.1000, L509.7001, L101.9900, L501.6710 #### [facility] [address] [place], [address] Absolute lymphocyte countOrd ered By: Inderjit Gillespie on 09-01-2024 Lymphocytes Auto (Unsp spec) [#/Vol] 0.62 10*3/uL Low 0.83-4.51 [facility] Absolute neutrophil countOrd ered By: Inderjit Gillespie on 09-01-2024 Neutrophils (Bld) [#/Vol] 11.3 10*3/uL High 2.0-7.7 [facility] Anion gap in Serum or Plasma Ordered By: Inderjit Gillespie on 09-01-2024 Anion gap [Moles/Vol] 10 mmol/L 5-15 [facility] Automated lymphocyte count a s percentage of total leukocytesOrdered By: Inderjit Gillespie on 09-01-2024 Lymphocytes/100 WBC Auto (Unsp spec) 4.8 % Low 19-41 [facility] BUN/creatinine ratioOrdered By: Inderjit Gillespie on 09-01-2024 Urea nitrogen/Creatinine [Mass ratio] 21.6 mg/mg High 10- [facility] Basic Metabolic Profile (BMP )on 09-01-2024 BUN/CRE 21.6 RATIO High 10- [facility] Comment on above: Performed By: #### M 200.1000, L509.7001, L101.9900, L501.6710 #### [facility] [address] [place], [address] Calcium [Mass/Vol] 8.8 mg/dL Normal 7.6-11.0 [facility] Comment on above: Performed By: #### M 200.1000, L509.7001, L101.9900, L501.6710 #### [facility] [address] [place], [address] Chloride [Moles/Vol] 105 mmol/L Normal 98-108 [facility] Comment on above: Performed By: #### M 200.1000, L509.7001, L101.9900, L501.6710 #### [facility] [address] [place], [address] CO2 [Moles/Vol] 24.3 mmol/L Normal 21.0-32.0 [facility] Comment on above: Performed By: #### M 200.1000, L509.7001, L101.9900, L501.6710 #### [facility] [address] [place], [address] Creatinine [Mass/Vol] 0.77 mg/dL Normal 0.70-1.20 [facility] Comment on above: Performed By: #### M 200.1000, L509.7001, L101.9900, L501.6710 #### [facility] [address] [place], [address] ECRCL 68.71 ml/min Normal 50-250 [facility] Comment on above: Performed By: #### M 200.1000, L509.7001, L101.9900, L501.6710 #### [facility] [address] [place], [address] GAP 10 Normal 5-15 [facility] Comment on above: Performed By: #### M 200.1000, L509.7001, L101.9900, L501.6710 #### [facility] [address] [place], [address] GFR/1.73 sq M.predicted among non-blacks MDRD (S/P/Bld) [Vol rate/Area] 86 mL/min/{1.73_m2} Normal >60 [facility] Comment on above: Result Comment: mL/m in/1.73m2 CKD-EPI Creatinine Equation (2020) Performed By: #### M 200.1000, L509.7001, L101.9900, L501.6710 #### [facility] [address] [place], [address] Glucose [Mass/Vol] 112 mg/dL High 70-99 [facility] Comment on above: Performed By: #### M 200.1000, L509.7001, L101.9900, L501.6710 #### [facility] [address] [place], [address] Potassium [Moles/Vol] 3.7 mmol/L Normal 3.3-5.1 [facility] Comment on above: Performed By: #### M 200.1000, L509.7001, L101.9900, L501.6710 #### [facility] [address] [place], [address] Sodium [Moles/Vol] 139 mmol/L Normal 133-145 [facility] Comment on above: Performed By: #### M 200.1000, L509.7001, L101.9900, L501.6710 #### [facility] [address] [place], [address] Urea nitrogen [Mass/Vol] 17 mg/dL Normal 4-19 [facility] Comment on above: Performed By: #### M 200.1000, L509.7001, L101.9900, L501.6710 #### [facility] [address] [place], [address] Basophil percentageOrdered B y: Inderjit Gillespie on 09-01-2024 Basophils/100 WBC (Bld) 0.4 % 0-1 [facility] Bilirubin Test strip Ql (U)O rdered By: Inderjit Gillespie on 09-01-2024 Bilirubin Ql (U) Negative Negative [facility] Blood cultureOrdered By: Magnolia Black on 09-01-2024 Bacteria identified Cx Nom (Bld) No growth in 5 days. [facility] Brain/Head without Contrasto n 09-01-2024 Brain/Head without Contrast [facility] Imaging Services [address] [facility] [place], [place] [id number] Brain/Head without Contrast MR#: [id number] Acct: [id number] Name: ROBY FLORES Rep #: [id number] : 1935 M 89 From: Jose harris MD PCP: Dr. Stas Mora MD Status: REG ER Study: Brain/Head without Contrast Date of Exam: 08/21 05/17 Exam# [id number] Ordering Dr: Inderjit Gillespie MD PROCEDURE: BRAIN/HEAD [...] of the left maxillary sinus. Reading Location: [place] [address] CC: Dr. Inderjit Gillespie MD; Dr. Stas Mora MD Warp Clamper: Signed Normal [facility] CBC W/Diff, Automatedon 08-21 Absolute Lymph 0.62 X10 3/uL Low 0.83-4.51 [facility] Comment on above: Performed By: #### M 200.1000, L509.7001, L101.9900, L501.6710 #### [facility] [address] [place], [address] Absolute Neut 11.3 X10 3/uL High 2.0-7.7 [facility] Comment on above: Performed By: #### M 200.1000, L509.7001, L101.9900, L501.6710 #### [facility] [address] [place], [address] Basophils/100 WBC (Bld) 0.4 % Normal 0-1 [facility] Comment on above: Performed By: #### M 200.1000, L509.7001, L101.9900, L501.6710 #### [facility] [address] [place], [address] Eosinophils/100 WBC (Bld) 1.2 % Normal 0-5 [facility] Comment on above: Performed By: #### M 200.1000, L509.7001, L101.9900, L501.6710 #### [facility] [address] [place], [address] Erythrocyte distribution width (RBC) [Ratio] 17.2 % High 11.6-14.6 [facility] Comment on above: Performed By: #### M 200.1000, L509.7001, L101.9900, L501.6710 #### [facility] [address] [place], [address] Hematocrit (Bld) [Volume fraction] 36.8 % Low 40-54 [facility] Comment on above: Performed By: #### M 200.1000, L509.7001, L101.9900, L501.6710 #### [facility] [address] [place], [address] Hemoglobin (Bld) [Mass/Vol] 11.6 g/dL Low 13.0-16.5 [facility] Comment on above: Performed By: #### M 200.1000, L509.7001, L101.9900, L501.6710 #### [facility] [address] [place], [address] IG% 0.400 Normal 0.0-0.9 [facility] Comment on above: Result Comment: IG% - Immature Granulocytes (promyelocytes, myelocytes and metamyelocytes) > 1% indicates that a LEFT SHIFT is Present. Performed By: #### M 200.1000, L509.7001, L101.9900, L501.6710 #### [facility] [address] [place], [address] Lymphocytes/100 WBC (Bld) 4.8 % Low 19-41 [facility] Comment on above: Performed By: #### M 200.1000, L509.7001, L101.9900, L501.6710 #### [facility] [address] [place], [address] MCH (RBC) [Entitic mass] 24.6 pg Low 27.0-32.0 [facility] Comment on above: Performed By: #### M 200.1000, L509.7001, L101.9900, L501.6710 #### [facility] [address] [place], [address] MCHC (RBC) [Mass/Vol] 31.5 g/dL Low 32-36 [facility] Comment on above: Performed By: #### M 200.1000, L509.7001, L101.9900, L501.6710 #### [facility] [address] [place], [address] MCV (RBC) [Entitic vol] 78.0 fL Low 80-94 [facility] Comment on above: Performed By: #### M 200.1000, L509.7001, L101.9900, L501.6710 #### [facility] [address] [place], [address] Monocytes/100 WBC (Bld) 5.7 % Normal 0-10 [facility] Comment on above: Performed By: #### M 200.1000, L509.7001, L101.9900, L501.6710 #### [facility] [address] [place], [address] Neutrophils/100 WBC (Bld) 87.5 % High 47-70 [facility] Comment on above: Performed By: #### M 200.1000, L509.7001, L101.9900, L501.6710 #### [facility] [address] [place], [address] Nucleated RBC (Bld) [#/Vol] 0 10*3/uL Normal 0-5 [facility] Comment on above: Performed By: #### M 200.1000, L509.7001, L101.9900, L501.6710 #### [facility] [address] [place], [address] Platelet mean volume (Bld) [Entitic vol] 9.4 fL Normal 6.2-12.0 [facility] Comment on above: Performed By: #### M 200.1000, L509.7001, L101.9900, L501.6710 #### [facility] [address] [place], [address] Platelets (Bld) [#/Vol] 258 10*3/uL Normal 150-450 [facility] Comment on above: Performed By: #### M 200.1000, L509.7001, L101.9900, L501.6710 #### [facility] [address] [place], [address] RBC (Bld) [#/Vol] 4.72 10*6/uL Normal 4.6-6.2 [facility] Comment on above: Performed By: #### M 200.1000, L509.7001, L101.9900, L501.6710 #### [facility] [address] [place], [address] RDW SD 48.2 fl High 35.1-43.9 [facility] Comment on above: Performed By: #### M 200.1000, L509.7001, L101.9900, L501.6710 #### [facility] [address] [place], [address] WBC (Bld) [#/Vol] 12.9 10*3/uL High 4.4-11.0 [facility] Comment on above: Performed By: #### M 200.1000, L509.7001, L101.9900, L501.6710 #### [facility] [address] [place], [address] Gene 09-01-2024 SHEMARN Telephone (PHME) ROBY FLORES ([id number]) 1935 M Date Time Provider Department 09/01/24 RUSSELL AGUAYO During your visit today, we recorded the following information about you: Russell Aguayo [facility] 09/01/2024 10:01 AM Signed PCP reached out [...] affordable alvarado using Good Rx coupons. At [facility] (his current pharmacy), he can get a 1 mo supply for ~$30. If he switches the prescription to [facility], he can get a 1 mo supply for ~$20. See coupons below. Rivastigmine patches are also available via [employer]. It appears the cheapest option is through [facility], in which he can get 30 patches for $52. Coupon also below. Sending to PCP to review and provide patient with coupon card information. Russell Aguayo, Saúl, [facility] Primary Care Clinical Pharmacist Memantine coupon at [facility] Memantine coupon at [facility] Rivastigmine patches coupon at [facility] Luciana Cisneros MD 09/01/2024 1:27 PM Signed Rahul Chau, Staff please let patient know what the pharmacist as opined on. 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, [address] COVID-19 virus antigen assay Ordered By: Marta Black on 09-01-2024 SARS-CoV-2 (COVID-19) Ag IA.rapid Ql (Resp) [facility] CRPon 09-01-2024 C-REACTIVE PROT 26.80 mg/L High 0.0-3.0 [facility] Comment on above: Performed By: #### M 200.1000, L509.7001, L101.9900, L501.6710 #### [facility] [address] [place], [address] Carbon dioxide, total [Moles /volume] in Central venous bloodOrdered By: Inderjit Gillespie on 09-01-2024 CO2 [Moles/Vol] 24.3 mmol/L 21.0-32.0 [facility] Chest 1 View (Portable)on Chest 1 View (Portable) [facility] Imaging Services [address] [place] [address] Chest 1 View (Portable) MR#: [id number] Acct: [id number] Name: ROBY FLORES Rep #: [id number] : 1935 M 89 From: Jose harris MD PCP: Dr. Stas Mora MD Status: REG ER Study: Chest 1 View (Portable) Date of Exam: 09/01/24 Exam# [id number] Ordering Dr: Inderjit Gillespie MD PROCEDURE: CHEST [...] No acute abnormality is seen. Reading Location: [place] [address] CC: Dr. Inderjit Gillespie MD; Dr. Stas Mora MD Warp Clamper: Signed Normal [facility] Chloride assayOrdered By: Aries Gillespie on 09-01-2024 Chloride [Moles/Vol] 105 mmol/L 98-108 [facility] Emergency Department Summary on 09-01-2024 Emergency Department Summary [facility] Medical Records Department [address] [place] [address] Emergency Department Summary 09/01/24 MR#: [id number] Acct: [id number] Name: ROBY FLORES Rep #: [id number] : 1935 89 From: Inderjit Gillespie MD [...] shoulders elbows and wrist. He has normal trackwalker strength. Neurologically he is awake alert. Answering [...] Air 09/01/24 (more content not included)... Normal [facility] Eosinophil percentageOrdered By: Inderjit Gillespie on 09-01-2024 Eosinophils/100 WBC (Bld) 1.2 % 0-5 [facility] Erythrocyte Sed Rateon 09-01 SED RATE 2 mm/hr Normal 0-20 [facility] Comment on above: Performed By: #### M 200.1000, L509.7001, L101.9900, L501.6710 #### [facility] [address] [place], [place], [address] Erythrocyte distribution wid th ratioOrdered By: Inderjit Gillespie on 09-01-2024 Erythrocyte distribution width (RBC) [Ratio] 17.2 % High 11.6-14.6 [facility] Erythrocyte distribution wid th standard deviationOrdered By: Inderjit Gillespie on 09-01-2024 Erythrocyte distribution width (RBC) [Ratio] 48.2 fl High 35.1-43.9 [facility] Erythrocyte sedimentation ra teOrdered By: Marta Black on 09-01-2024 ESR (Bld) [Velocity] 2 mm/h 0-20 [facility] Glomerular filtration rate ( GFR) estimation/1.73 sq m using serum, plasma, or whole bOrdered By: Inderjit Gillespie on 09-01-2024 GFR/1.73 sq M.predicted among non-blacks MDRD (S/P/Bld) [Vol rate/Area] 86 mL/min/{1.73_m2} >60 [facility] Comment on above: mL/min/1.73m2 CKD-EP I Creatinine Equation (2020) H AND P Exam - [facility] 09-01-2024 H&P Exam - Hospitalist [facility] Medical Records Department [address] [place] [address] H P Exam - Hospitalist 09/01/24 1018 MR#: [id number] Acct: [id number] Name: ROBY FLORES Rep #: [id number] : 1935 89 From: Kathy Wells MD PCP: Dr. Stas Mora MD Status:ADM GERMAN Location: [facility] [place] HPI - General General Date of Admission: [...] in the ED were BP of 180/89, MI of 87, RR of 18 and temp [...] weakness due to mechanical fall. [facility] Medical History Chronic anticoagulation TIA (transient ischemic [...] 99 Oxy (more content not included)... Normal [facility] Hematocrit Auto (Bld) [Volum e fraction]Ordered By: Inderjit Gillespie on 09-01-2024 Hematocrit (Bld) [Volume fraction] 36.8 % Low 40-54 [facility] Hemoglobin measurementOrdere d By: Inderjit Gillespie on 09-01-2024 Hemoglobin (Bld) [Mass/Vol] 11.6 g/dL Low 13.0-16.5 [facility] Hips B/L min 2 views w/ Pelv adolfo 09-01-2024 Hips B/L min 2 views w/ Pelvis [facility] Imaging Services [address] [place] [address] Hips B/L min 2 views w/ Pelvis MR#: [id number] Acct: [id number] Name: ROBY FLORES Rep #: [id number] : 1935 M 89 From: Jose harris MD PCP: Dr. Stas Mora MD Status: REG ER Study: Hips B/L min 2 views w/ Pelvis Date of Exam: 0 09/01/24 Exam# [id number] Ordering Dr: Inderjit Gillespie MD PROCEDURE: HIPS [...] No fracture or dislocation present. Reading Location: [place] [address] CC: Dr. Inderjit Gillespie MD; Dr. Stas Mora MD Warp Clamper: Signed Normal [facility] Immature granulocytes/100 WB C Auto (Bld)Ordered By: Inderjit Gillespie on 09-01-2024 Immature granulocytes/100 WBC (Bld) 0.400 % 0.0-0.9 [facility] Comment on above: IG% - Immature Granu locytes (promyelocytes, myelocytes and metamyelocytes) > 1% indicates that a LEFT SHIFT is Present. International normalized rat io (INR) calculationOrdered By: Inderjit Gillespie on 09-01-2024 INR Coag (Bld) [Relative time] 1.8 {INR} [facility] Ketones Test strip Ql (U)Ord ered By: Inderjit Gillespie on 09-01-2024 Ketones Ql (U) Negative Negative [facility] L509.7001on 09-01-2024 Procalcitonin 0.07 ng/mL Normal <=0.10 [facility] Comment on above: Result Comment: Inte rpretation: [...] #### M 200.1000, L509.7001, L101.9900, L501.6710 #### [facility] [address] [place], [address] MCV (mean corpuscular volume ) determinationOrdered By: Inderjit Gillespie on 09-01-2024 MCV (RBC) [Entitic vol] 78.0 fL Low 80-94 [facility] Mean corpuscular hemoglobin (MCH) determinationOrdered By: Inderjit Gillespie on 09-01-2024 MCH (RBC) [Entitic mass] 24.6 pg Low 27.0-32.0 [facility] Mean corpuscular hemoglobin concentration (MCHC) determinationOrdered By: Inderjit Gillespie on 09-01-2024 MCHC (RBC) [Mass/Vol] 31.5 g/dL Low 32-36 [facility] Mean platelet volume determi nationOrdered By: Inderjit Gillespie on 09-01-2024 Platelet mean volume (Bld) [Entitic vol] 9.4 fL 6.2-12.0 [facility] Microscopic analysis of urin e for red blood cells (RBC)Ordered By: Inderjit Gillespie on 09-01-2024 Microscopic analysis of urine for red blood cells (RBC) 0 SEEN /hpf 0-5 [facility] Monocyte percentageOrdered B y: Inderjit Gillespie on 09-01-2024 Monocytes/100 WBC (Bld) 5.7 % 0-10 [facility] Mucus LM Ql (Urine sed)Order ed By: Inderjit Gillespie on 09-01-2024 Mucus Ql (Urine sed) 0 SEEN /hpf [facility] Neutrophil percentageOrdered By: Inderjit Gillespie on 09-01-2024 Neutrophils/100 WBC (Bld) 87.5 % High 47-70 [facility] Nitrite Test strip Ql (U)Ord ered By: Inderjit Gillespie on 09-01-2024 Nitrite Ql (U) Negative Negative [facility] Nucleated red blood cell per centageOrdered By: Inderjit Gillespie on 09-01-2024 Nucleated RBC/100 WBC (Bld) [Ratio] 0 % 0-5 [facility] Platelet countOrdered By: Aries Gillespie on 09-01-2024 Platelets (Bld) [#/Vol] 258 10*3/uL 150-450 [facility] Potassium measurement (mass/ volume)Ordered By: Inderjit Gillespie on 09-01-2024 Potassium (Unsp spec) [Mass/Vol] 3.7 mmol/L 3.3-5.1 [facility] Procalcitonin [Mass/volume] in Serum or Plasma by ImmunoassayOrdered By: Marta Black on 09-01-2024 Procalcitonin IA [Mass/Vol] 0.07 ng/mL <0.11 [facility] Comment on above: Interpretation:<0.10 -0.25 ng/mL: Antibiotic [...] Protein Ql (U) 15 mg/dl High Negative [facility] Prothrombin Time w/INRon INR Coag (PPP) [Relative time] 1.8 {INR} Normal [facility] Comment on above: Performed By: #### M 200.1000, L509.7001, L101.9900, L501.6710 #### [facility] [address] [place], [address] PT Coag (PPP) [Time] 21.4 s High 11.7-14.9 [facility] Comment on above: Performed By: #### M 200.1000, L509.7001, L101.9900, L501.6710 #### [facility] [address] [place], [address] Prothrombin timeOrdered By: Inderjit Gillespie on 09-01-2024 PT Coag (PPP) [Time] 21.4 s High 11.7-14.9 [facility] RBC Auto (Bld) [#/Vol]Ordere d By: Inderjit Gillespie on 09-01-2024 RBC (Bld) [#/Vol] 4.72 10*6/uL 4.6-6.2 [facility] Respiratory pathogens detect ion panel by molecular detection methodOrdered By: Marta Black on 09-01-2024 Respiratory pathogens DNA and RNA panel LOLI+probe (Resp) [facility] Serum creatinine measurement (mass/volume)Ordered By: Inderjit Gillespie on 09-01-2024 Creatinine [Mass/Vol] 0.77 mg/dL 0.70-1.20 [facility] Serum glucose measurement (m ass/volume)Ordered By: Inderjit Gillespie on 09-01-2024 Glucose [Mass/Vol] 112 mg/dL High 70-99 [facility] Serum or plasma C reactive p rotein measurement (mass/volume)Ordered By: Marta Black on 09-01-2024 CRP [Mass/Vol] 26.80 mg/L High 0.0-3.0 [facility] Serum or plasma calcium alvaro urement (mass/volume)Ordered By: Inderjit Gillespie on 09-01-2024 Calcium [Mass/Vol] 8.8 mg/dL 7.6-11.0 [facility] Serum or plasma urea nitroge n measurement (mass/volume)Ordered By: Inderjit Gillespie on 09-01-2024 Urea nitrogen [Mass/Vol] 17 mg/dL 4-19 [facility] Sodium levelOrdered By: Inderjit Gillespie on 09-01-2024 Sodium [Moles/Vol] 139 mmol/L 133-145 [facility] Squamous epithelial cells de tection in urine sediment by light microscopyOrdered By: Inderjit Gillespie on 09-01-2024 Epithelial cells.squamous LM Ql (Urine sed) 0 SEEN /hpf 0-5 [facility] Urinalysis, Completeon 09-01 BACTERIA 0 SEEN Normal None Seen [facility] Comment on above: Order Comment: CLEAN CATCH Performed By: #### L 400.0001 #### [facility] [address] [place], [address] EPI,SQUAMOUS 0 SEEN Normal 0-5 [facility] Comment on above: Order Comment: CLEAN CATCH Performed By: #### L 400.0001 #### [facility] [address] [place], [address] Mucus Ql (Urine sed) 0 SEEN Normal [facility] Comment on above: Order Comment: CLEAN CATCH Performed By: #### L 400.0001 #### [facility] [address] [place], [place], [id number] RBC 0 SEEN Normal 0-5 [facility] Comment on above: Order Comment: CLEAN CATCH Performed By: #### L 400.0001 #### [facility] [address] [place], [place], [id number] WBC 0 SEEN Normal 0-5 [facility] Comment on above: Order Comment: CLEAN CATCH Performed By: #### L 400.0001 #### [facility] [address] [place], [place], [phone] Urine clarityOrdered By: Mario Gillespie on 09-01-2024 Clarity (U) Clear Clear [facility] Urine color determinationOrd ered By: Inderjit Gillespie on 09-01-2024 Color (U) Yellow Yellow [facility] Urine glucose detectionOrder ed By: Inderjit Gillespie on 09-01-2024 Glucose Ql (U) Normal mg/dl Normal [facility] Urine leukocyte esterase det ection by dipstickOrdered By: Inderjit Gillespie on 09-01-2024 Leukocyte esterase Test strip Ql (U) Negative Negative [facility] Urine pHOrdered By: Inderjit pack on 09-01-2024 pH (U) 8.0 [pH] 5.0 - 8.0 [facility] Urine sediment bacteria coun t by microscopy (number/high power field)Ordered By: Inderjit Gillespie on 09-01-2024 Bacteria LM.HPF (Urine sed) [#/Area] 0 /[HPF] None Seen [facility] Urine specific gravity measu rementOrdered By: Inderjit Gillespie on 09-01-2024 Specific gravity (U) [Rel density] 1.010 1.002-1.03 0 [facility] Urine urobilinogen measureme ntOrdered By: Inderjit Gillespie on 09-01-2024 Urobilinogen Ql (U) 4 mg/dl High Normal [facility] White blood cell (WBC) count Ordered By: Inderjit Gillespie on 09-01-2024 WBC (Bld) [#/Vol] 12.9 10*3/uL High 4.4-11.0 [facility] White blood cell countOrdere d By: Inderjit Gillespie on 09-01-2024 White blood cell count 0 SEEN /hpf 0-5 [facility] CNOVon 08-31-2024 CNOV Office Visit (GERIWR ) ROBY FLORES ([id number]) 1935 M Date Time Provider Department 08/31/24 [...] and believing his brother, who lives in [place], was present. 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 [...] wa (more content not included)... [facility] (SHAY) FLORESROBY ([id number]) 1935 M Date Time Provider Department 08/31/24 CORETTA JALLOH During your visit today, we recorded the following information about you: Coretta Jalloh RPh 08/31/2024 2:13 PM Signed [facility] Anticoagulation Episode Summary Anticoagulation Care Providers Provider Role Specialty Phone number Stas Mora MD Referring Family Medicine [phone] Roby Garcia Sandra is a 89 year [...] ALLERGIES No Known Allergies Indication for Warfarin: prison current use of anticoagulant Paroxysmal atrial fibrillation [...] Pharmacy Anticoagulation Clinic Pharmacy Antico[facility] Clinic Pager: [phone]. Coretta Jalloh RPh 09/28/2024 11:30 AM Signed Per TE on 09/21, pt is in [facility] for rehab. He has been for for nearly 3 weeks now. Will check back next week before we call Maria Guadalupe. Will watch for notes of discharge. Coretta Tarcy, [facility] Gaelyaquelin Coretta [facility] 10/05/2024 2:05 PM Signed Spoke to Maria Guadalupe. She said he is at an [facility] and they are managing his AC but she isn't aware of results. She isn't sure of discharge timing. She said maybe check back in a few weeks. Will check back in October for any updates. Coretta Taryaquelin [facility] Adrian (Corporate Sales Representative)Elana 10/27/2024 4:17 PM Signed Updating [facility] LTC / Rehab list. Called and stp patient's significant other, Maria Guadalupe. She stated patient is still in SNF at this time. She was agreeable to f/u in a few weeks. Tracker updated for f/u in 2-3 weeks. Elana Campbell CPhT (Fixer Supervisor) Pharmacy Anticoagulation Clinic Satish (Corporate Sales Representative)Parmjit 11/25/2024 3:45 PM Signed Left message requesting an update. Patient has appt with PCP 12/05. Will update tracker to that day to see if there are any updates. 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 Normal [facility] PT panel Coag (PPP)on 2024 INR Coag (PPP) [Relative time] 1.9 {INR} High 0.9-1.3 [facility] Comment on above: Order Comment: Stone parmar Type: BLOOD SPECIMEN Ordering Facility: [facility] Address: [address] [place] [id number] Result Comment: Mary min K Antagonist (VKA) Therapeutic Range: INR 2 to 3 (Target INR of 2.5) Note: For patients treated with VKA drugs, such as warfarin, the [employer] 2012 Guideline recommends [...] Chest 2012, 141:7S-47S Avel RA, et al. [facility] 2017, 70: 252-289 Performed By: #### 3 4528-0 #### [facility] CLIA [id number] [address] [place] [address] [place] PT Coag (PPP) [Time] 19.2 s High <13.1 [facility] Comment on above: Order Comment: Stone parmar Type: BLOOD SPECIMEN Ordering Facility: [facility] Address: [address] [place] [address] Performed By: #### 3 4528-0 #### [facility] CLIA [id number] [address] [place] [address] [place] Gene 08-03-2024 SHEMARN Telephone ([facility]) ROBY FLORES ([id number]) 1935 M Date Time Provider Department 08/03/24 CORETTA JALLOH During your visit today, we recorded the following information about you: Coretta Jalloh [facility] 08/03/2024 10:52 AM Signed [facility] Anticoagulation Clinic Anticoagulation Episode Summary Anticoagulation Care Providers Provider Role Specialty Phone number Stas Mora MD Referring Family Medicine [phone] Roby Flores is a 88 year old [...] ALLERGIES No Known Allergies Indication for Warfarin: prison current use of 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 Coretta Jalloh [facility] Clinical Pharmacist, Pharmacy Anticoagulation Clinic Pharmacy Anticoagulation Clinic Pager: [phone]. Adrian (Reveal)Elana 08/03/2024 11:01 AM Signed PATIENT CALL Patient [...] 08/31/2024 Caregiver verbalized understanding. Will route to [facility] as FYI. Elana Campbell (Reveal) Coretta Jalloh [facility] 08/03/2024 11:20 AM Signed I have reviewed the below recommendations and agree with plan. 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 prison current use of anticoagulant [Z79.01]09/22/2016 Paroxysmal atrial fibrillation (HCC) [I48.0] 09/22/2016 Hyperlipidemia [E78.5] 08/26/2022 Encounter Status:Closed by CORETTA JALLOH on 08/03/24 Normal [facility] PT panel Coag (PPP)on 2024 INR Coag (PPP) [Relative time] 2.5 {INR} High 0.9-1.3 [facility] Comment on above: Order Comment: Speci men Type: BLOOD SPECIMENOrdering Facility: [facility] Address: [address] [place] [address] [place] [address] Result Comment: Mary min K Antagonist (VKA) Therapeutic Range: INR 2 to 3 (Target INR of 2.5) Note: For patients treated with VKA drugs, such as warfarin, the [employer] 2012 Guideline recommends [...] Chest 2012, 141:7S-47S Avel RA, et al. [facility] 2017, 70: 252-289 Performed By: #### 3 4528-0 ####[facility] [id number] [address] [place] PT Coag (PPP) [Time] 24.3 s High <13.1 [facility] Comment on above: Order Comment: Speci men Type: BLOOD SPECIMENOrdering Facility: [facility] Address: [address] [id number] Performed By: #### 3 4528-0 ####[facility] [id number] [address] [place] CNOVon 07-28-2024 CNOV Office Visit (FAMPWS ) ROBY FLORES ([id number]) 1935 M Date Time Provider Department 07/28/24 [...] Coronary atherosclerosis of unspecified type of vessel, tetlin or graft Coronary artery disease Other and [...] Histories independently gathered by the clinical it desktop support specialist and the remaining scribed note [...] - Fully Assessed Reason for Visit: Lump [[id number]] Cmt: Elbow Primary Visit Diagnosis:Bursitis of right elbow, unspecified bursa [M70.31] Prescriptions as of 07/28/2024 - memantine (NAMENDA) 10 mg tablet Take 1 tablet by mouth two times a day. - atorvastatin (LIPITOR) 40 mg tablet Take 1 tablet by mouth daily at bedtime. - warfarin (COUMADIN) 2.5 mg tablet Take as directed (more content not included)... 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 current use of anticoagulant [Z79.01]09/22/2016 Paroxysmal atrial fibrillation (HCC) [I48.0] 09/22/2016 Hyperlipidemia [E78.5] 08/26/2022 Encounter Status:Closed by WENDY FAULKNER on 07/18/24 Normal [facility] Gene 07-06-2024 CNPN Telephone (PHAMTE) FLORESROBY CORTEZ ([id number]) 1935 M Date Time Provider Department 07/06/24 CORETTA JALLOH PHAMTE During your visit today, we recorded the following information about you: Coretta Jalloh [facility] 07/06/2024 10:16 AM Signed [facility] Anticoagulation Clinic Anticoagulation Episode Summary Anticoagulation Care Providers Provider Role Specialty Phone number Stas Mora MD Referring Family Medicine [phone] Roby Flores is a 88 year old [...] ALLERGIES No Known Allergies Indication for Warfarin: 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 current use of 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 Coretta Jalloh [facility] Clinical Pharmacist, Pharmacy Anticoagulation Clinic Pharmacy Anticoagulation Clinic Pager: [phone]. 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 prison current use of anticoagulant [Z79.01]09/22/2016 Paroxysmal atrial fibrillation (HCC) [I48.0] 09/22/2016 Hyperlipidemia [E78.5] 08/26/2022 Encounter Status:Closed by CORETTA JALLOH on 07/06/24 Normal [facility] PT panel Coag (PPP)on 2024 INR Coag (PPP) [Relative time] 2.1 {INR} High 0.9-1.3 [facility] Comment on above: Order Comment: Speci men Type: BLOOD SPECIMEN Ordering Facility: [facility] Address: [address] [place] [address] Result Comment: Mary min K Antagonist (VKA) Therapeutic Range: INR 2 to 3 (Target INR of 2.5) Note: For patients treated with VKA drugs, such as warfarin, the [employer] 2012 Guideline recommends [...] Chest 2012, 141:7S-47S Avel RA, et al. [facility] 2017, 70: 252-289 Performed By: #### 3 4528-0 #### [facility] CLIA [id number] [address] [place] [address] [place] PT Coag (PPP) [Time] 21.0 s High <13.1 [facility] Comment on above: Order Comment: Speci men Type: BLOOD SPECIMEN Ordering Facility: [facility] Address: [facility] [place] [address] Performed By: #### 3 4528-0 #### [facility] CLIA [id number] [address] [place] CNPNon 06-29-2024 CNPN Telephone (PHAMTE) ROBY FLORES ([id number]) 1935 M Date Time Provider Department 06/29/24 CORETTA JALLOH During your visit today, we recorded the following information about you: Coretta Jalloh RPh 06/29/2024 9:54 AM Signed [facility] Anticoagulation Clinic Anticoagulation Episode Summary Anticoagulation Care Providers Provider Role Specialty Phone number Stas Mora MD Referring Family Medicine [phone] Roby Garcia Sandra is a 88 year [...] ALLERGIES No Known Allergies Indication for Warfarin: 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 current use of anticoagulant Paroxysmal atrial fibrillation (hcc) Anticoagulation Episode Summary Current INR goal: 2.0-3.0 Assessment: INR result of 2.5 is therapeutic Plan: Current Warfarin Dosing As of 06/29/2024 Full warfarin instructions: 1.5 mg every Thu, Sat; 2.5 mg all other days Sent [employer] message Advised patient to continue current weekly dose as noted above Next home INR check scheduled on 07/06/2024 Patient advised to call the PAC with any medication changes, bleeding/bruising concerns, recent changes in vitamin k consumption, if any procedures are coming up, if they have been ill or in the hospital, and if they have missed any doses of warfarin. Coretta Jalloh [facility] Clinical Pharmacist, Pharmacy Anticoagulation Clinic Pharmacy Anticoagulation Clinic Pager: [phone]. 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 current use of anticoagulant [Z79.01]09/22/2016 Paroxysmal atrial fibrillation (HCC) [I48.0] 09/22/2016 Hyperlipidemia [E78.5] 08/26/2022 Encounter Status:Closed by CORETTA JALLOH on 06/29/24 Normal [facility] PT panel Coag (PPP)on 2024 INR Coag (PPP) [Relative time] 2.5 {INR} High 0.9-1.3 [facility] Comment on above: Order Comment: Speci men Type: BLOOD SPECIMEN Ordering Facility: [facility] Address: [address] [place] [address] Result Comment: Mary min K Antagonist (VKA) Therapeutic Range: INR 2 to 3 (Target INR of 2.5) Note: For patients treated with VKA drugs, such as warfarin, the [employer] 2012 Guideline recommends [...] Chest 2012, 141:7S-47S Avel RA, et al. [facility] 2017, 70: 252-289 Performed By: #### 3 4528-0 #### [facility] [id number] [address] [place] [address] [place] PT Coag (PPP) [Time] 24.4 s High <13.1 [facility] Comment on above: Order Comment: Speci men Type: BLOOD SPECIMEN Ordering Facility: [facility] Address: [address] [place] [address] Performed By: #### 3 4528-0 #### [facility] [id number] [address] [place] [address] [place] CNOVon 06-01-2024 CNOV Office Visit (GERIWR ) ROBY FLORES ([id number]) 1935 M Date Time Provider Department 06/01/24 3:00 PM LUCIANA CISNEROS During your visit today, we recorded the following information about you: Pulse Blood pressure Weight Height 46/minute 132/60 73.8 kg 1.819 m Luciana Cisneros MD 07/14/2024 4:10 PM Addendum [facility] Initial Consult Roby [...] not know 911 Social History: Primary language: Tuvaluan Marital Status: Single Living situation: Home w/ SO Socially engaged? (participates in activities such as clubs, sikhism, community center, sports, games, visiting friends/relatives, etc?): They go out to eat sometimes, not as often, most of the time they order stuff and pick it up at home. Caregiver [place] and Stress Are your feeling overwhelmed? 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 Normal [facility] CNOVon 05-26-2024 CNOV Office Visit (FAMPWS ) ROBY FLORES ([id number]) 1935 M Date Time Provider Department 05/26/24 [...] Coronary atherosclerosis of unspecified type of vessel, tetlin or graft Coronary artery disease Other and [...] due on (more content not included)... 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 prison current use of anticoagulant [Z79.01]09/22/2016 Paroxysmal atrial fibrillation (HCC) [I48.0] 09/22/2016 Hyperlipidemia [E78.5] 08/26/2022 Encounter Status:Closed by EDILIA MOSLEY on 05/26/24 Normal [facility] CBC W Auto Differential pane l (Bld)on 05-25-2024 Basophils (Bld) [#/Vol] 0.05 10*3/uL Normal <0.11 [facility] Comment on above: Order Comment: Speci men Type: BLOOD SPECIMENOrdering Facility: [facility] Address: [address] [place] [address] Performed By: #### 5 7021-8 ####[facility] [id number] [place] [address] [place] Basophils/100 WBC (Bld) 0.6 % Normal [facility] Comment on above: Order Comment: Speci men Type: BLOOD SPECIMENOrdering Facility: [facility] Address: [address] [place] [address] Performed By: #### 5 7021-8 ####[facility] [id number] [place] [address] [place] Differential cell count method Nom (Bld) Auto Normal [facility] Comment on above: Order Comment: Speci men Type: BLOOD SPECIMENOrdering Facility: [facility] Address: [address] [place] [address] Performed By: #### 5 7021-8 ####[facility] [id number] [place] [address] [place] Eosinophils (Bld) [#/Vol] 0.08 10*3/uL Normal <0.46 [facility] Comment on above: Order Comment: Speci men Type: BLOOD SPECIMENOrdering Facility: [facility] Address: [address] [place] [address] Performed By: #### 5 7021-8 ####[facility] [id number] [place] [address] [place] Eosinophils/100 WBC (Bld) 1.0 % Normal [facility] Comment on above: Order Comment: Speci men Type: BLOOD SPECIMENOrdering Facility: [facility] Address: [address] [place] [address] Performed By: #### 5 7021-8 ####[facility] [id number] [place] [address] [place] Erythrocyte distribution width (RBC) [Ratio] 16.7 % High 11.5-15.0 [facility] Comment on above: Order Comment: Speci men Type: BLOOD SPECIMENOrdering Facility: [facility] Address: [address] [place] [address] Performed By: #### 5 7021-8 ####[facility] [id number] [place] [address] [place] Hematocrit (Bld) [Volume fraction] 38.7 % Low 39.0-51.0 [facility] Comment on above: Order Comment: Speci men Type: BLOOD SPECIMENOrdering Facility: [facility] Address: [address] [place] [address] Performed By: #### 5 7021-8 ####[facility] [id number] [place] [address] [place] Hemoglobin (Bld) [Mass/Vol] 11.8 g/dL Low 13.0-17.0 [facility] Comment on above: Order Comment: Speci men Type: BLOOD SPECIMENOrdering Facility: [facility] Address: [address] [place] [address] Performed By: #### 5 7021-8 ####[facility] [id number] [place] [address] [place] Immature granulocytes (Bld) [#/Vol] 10*3/uL Normal <0.10 [facility] Comment on above: Order Comment: Speci men Type: BLOOD SPECIMENOrdering Facility: [facility] Address: [address] [place] [address] Performed By: #### 5 7021-8 ####[facility] [id number] [place] [address] [place] Immature granulocytes/100 WBC (Bld) 0.2 % Normal [facility] Comment on above: Order Comment: Speci men Type: BLOOD SPECIMENOrdering Facility: [facility] Address: [address] [place] [address] Performed By: #### 5 7021-8 ####[facility] [id number] [place] [address] [place] Lymphocytes (Bld) [#/Vol] 1.50 10*3/uL Normal 1.00-4.00 [facility] Comment on above: Order Comment: Speci men Type: BLOOD SPECIMENOrdering Facility: [facility] Address: [address] [place] [address] Performed By: #### 5 7021-8 ####[facility] [id number] [place] [address] [place] Lymphocytes/100 WBC (Bld) 18.7 % Normal [facility] Comment on above: Order Comment: Speci men Type: BLOOD SPECIMENOrdering Facility: [facility] Address: [address] [place] [address] Performed By: #### 5 7021-8 ####[facility] [id number] [place] [address] [place] MCH (RBC) [Entitic mass] 23.6 pg Low 26.0-34.0 [facility] Comment on above: Order Comment: Speci men Type: BLOOD SPECIMENOrdering Facility: [facility] Address: [address] [place] [address] Performed By: #### 5 7021-8 ####[facility] [id number] [place] [address] [place] [place] MCHC (RBC) [Mass/Vol] 30.5 g/dL Normal 30.5-36.0 [facility] Comment on above: Order Comment: Speci men Type: BLOOD SPECIMENOrdering Facility: [facility] Address: [address] [place] [address] Performed By: #### 5 7021-8 ####[facility]OSPITALLIA [id number] [place] [address] [place] MCV (RBC) [Entitic vol] 77.6 fL Low 80.0-100.0 [facility] Comment on above: Order Comment: Speci men Type: BLOOD SPECIMENOrdering Facility: [facility] Address: [address] [place] [address] Performed By: #### 5 7021-8 ####[facility] [id number] [place] [address] [place] Monocytes (Bld) [#/Vol] 0.64 10*3/uL Normal <0.87 [facility] Comment on above: Order Comment: Speci men Type: BLOOD SPECIMENOrdering Facility: [facility] Address: [address] [place] [address] Performed By: #### 5 7021-8 ####[facility] MILLWNCLIA [id number] [place] [address] [place] Monocytes/100 WBC (Bld) 8.0 % Normal [facility] Comment on above: Order Comment: Speci men Type: BLOOD SPECIMENOrdering Facility: [facility] Address: [address] [place] [address] Performed By: #### 5 7021-8 ####[facility] CENTERAMINATALIA [id number] [place] [address] [place] Neutrophils (Bld) [#/Vol] 5.75 10*3/uL Normal 1.45-7.50 [facility] Comment on above: Order Comment: Speci men Type: BLOOD SPECIMENOrdering Facility: [facility] Address: [address] [place] [address] Performed By: #### 5 7021-8 ####[facility] NAPLESWNCLIA [id number] [place] [address] [place] Neutrophils/100 WBC (Bld) 71.5 % Normal [facility] Comment on above: Order Comment: Speci men Type: BLOOD SPECIMENOrdering Facility: [facility] Address: [address] [place] [address] Performed By: #### 5 7021-8 ####[facility]ENTERNCLIA [id number] [place] [address] [place] Nucleated RBC (Bld) [#/Vol] 10*3/uL Normal <0.01 [facility] Comment on above: Order Comment: Speci men Type: BLOOD SPECIMENOrdering Facility: [facility] Address: [address] [place] [address] Performed By: #### 5 7021-8 ####[facility] MARLYNNCLIZZ [id number] [place] [address] [place] Nucleated RBC/100 WBC (Bld) [Ratio] 0.0 /100 WBC Normal [facility] Comment on above: Order Comment: Speci men Type: BLOOD SPECIMENOrdering Facility: [facility] Address: [address] [place] [address] Performed By: #### 5 7021-8 ####[facility] DENISEVANDERWAGENNCLIRachel [id number] [place] [address] [place] Platelet mean volume (Bld) [Entitic vol] 10.6 fL Normal 9.0-12.7 [facility] Comment on above: Order Comment: Speci men Type: BLOOD SPECIMENOrdering Facility: [facility] Address: [address] [place] [address] Performed By: #### 5 7021-8 ####[facility]ENTERNCLIA [id number] [place] [address] [place] Platelets (Bld) [#/Vol] 257 10*3/uL Normal 150-400 [facility] Comment on above: Order Comment: Speci men Type: BLOOD SPECIMENOrdering Facility: [facility] Address: [address] [place] [address] Performed By: #### 5 7021-8 ####[facility]ENTERNCLIA [id number] [place] [address] [place] RBC (Bld) [#/Vol] 4.99 10*6/uL Normal 4.20-6.00 [facility] Comment on above: Order Comment: Speci men Type: BLOOD SPECIMENOrdering Facility: [facility] Address: [address]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 [facility] PT panel Coag (PPP)on 2024 INR Coag (PPP) [Relative time] 3.2 {INR} High 0.9-1.3 [facility] Comment on above: Order Comment: Stone parmar Type: BLOOD SPECIMENOrdering Facility: [facility] Address: [address] [place] [address] Result Comment: Mary min K Antagonist (VKA) Therapeutic Range: INR 2 to 3 (Target INR of 2.5) Note: For patients treated with VKA drugs, such as warfarin, the [employer] 2012 Guideline recommends [...] Chest 2012, 141:7S-47S Avel RA et al. [facility] 2017, 70: 252-289 Performed By: #### 3 4528-0 ####[facility] [id number] [address] [place] PT Coag (PPP) [Time] 31.2 s High <13.1 [facility] Comment on above: Order Comment: Stone parmar Type: BLOOD SPECIMENOrdering Facility: [facility] Address: [address] [place] [address] Performed By: #### 3 4528-0 ####[facility]ENTERJERMAIN [id number] [address] [place] CNPMarizol 03-30-2024 CNPN Telephone (PHAMTE) ROBY FLORES ([id number]) 1935 M Date Time Provider Department 03/30/24 CORETTA JALLOH PHAMAHENDRA During your visit today, we recorded the following information about you: Coretta Jalloh [facility] 03/30/2024 9:57 AM Signed [facility] Ambulatory Pharmacy Anticoagulation Clinic Anticoagulation Episode Summary Anticoagulation Care Providers Provider Role Specialty Phone number Stas Mora MD Referring Family Medicine [phone] Roby Flores is a 88 year old [...] ALLERGIES No Known Allergies Indication for Warfarin: 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 current use of 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 Coretta Jalloh [facility] Clinical Pharmacist, Pharmacy Anticoagulation Clinic Pharmacy Anticoagulation Clinic Pager: [phone]. 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 current use of anticoagulant [Z79.01]09/22/2016 Paroxysmal atrial fibrillation (HCC) [I48.0] 09/22/2016 Hyperlipidemia [E78.5] 08/26/2022 Encounter Status:Closed by CORETTA JALLOH on 03/30/24 Normal [facility] PT panel Coag (PPP)on 2024 INR Coag (PPP) [Relative time] 3.5 {INR} High 0.9-1.3 [facility] Comment on above: Order Comment: Speci men Type: BLOOD SPECIMENOrdering Facility: [facility] Address: [address] [place], [place] [address] Result Comment: Mary min K Antagonist (VKA) Therapeutic Range: INR 2 to 3 (Target INR of 2.5) Note: For patients treated with VKA drugs, such as warfarin, the [employer] 2012 Guideline recommends [...] Chest 2012, 141:7S-47S Avel RA, et al. [facility] 2017, 70: 252-289 Performed By: #### 3 4528-0 ####[facility]ERNCM[facility] [id number] [place] [address] [place] PT Coag (PPP) [Time] 33.4 s High <13.1 [facility] Comment on above: Order Comment: Speci men Type: BLOOD SPECIMENOrdering Facility: [facility] Address: [address] [place] [address] Performed By: #### 3 4528-0 ####[facility] [id number] [address] [place] CNPMarizol 03-17-2024 CNPN Telephone (PHARAV) ROBY FLORES ([id number]) 1935 M Date Time Provider Department 03/17/24 JOSY GANDHI PHAV During your visit today, we recorded the following information about you: Josy Gandhi RPh 03/17/2024 9:38 AM Signed [facility] Ambulatory Pharmacy Anticoagulation Clinic Anticoagulation Episode Summary Anticoagulation Care Providers Provider Role Specialty Phone number Stas Mora MD Referring Family Medicine [phone] Roby Radha Flores is a 88 year [...] ALLERGIES No Known Allergies Indication for Warfarin: prison current use of 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 Josy Gandhi [facility] Clinical Pharmacist, Pharmacy Anticoagulation Clinic Pharmacy Anticoagulation Clinic Pager: [phone]. 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 current use of anticoagulant [Z79.01]09/22/2016 Paroxysmal atrial fibrillation (HCC) [I48.0] 09/22/2016 Hyperlipidemia [E78.5] 08/26/2022 Encounter Status:Closed by JOSY GANDHI on 03/17/24 Normal [facility] PT panel Coag (PPP)on 2023 INR Coag (PPP) [Relative time] 3.8 {INR} High 0.9-1.3 [facility] Comment on above: Order Comment: Stone parmar Type: BLOOD SPECIMENOrdering Facility: [facility] Address: [address] [place] [address] Result Comment: Mary min K Antagonist (VKA) Therapeutic Range: INR 2 to 3 (Target INR of 2.5) Note: For patients treated with VKA drugs, such as warfarin, the [employer] 2012 Guideline recommends [...] Chest 2012, 141:7S-47S Avel RA, et al. [facility] 2017, 70: 252-289 Performed By: #### 3 4528-0 ####[facility]ENTERJERMAIN [id number] [place] [address] [place] PT Coag (PPP) [Time] 36.4 s High <13.1 [facility] Comment on above: Order Comment: Stone parmar Type: BLOOD SPECIMENOrdering Facility: [facility] Address: [address] [place] [address] Performed By: #### 3 4528-0 ####[facility]ENTERJERMAIN [id number] [place] [address] [facility] Gene 03-03-2024 CNPN Telephone (PHAMTE) ROBY FLORES ([id number]) 1935 M Date Time Provider Department 03/03/24 ELISE PAREDES PHAMTE During your visit today, we recorded the following information about you: Elise Paredes, [facility] 03/03/2024 9:40 AM Signed [facility] Ambulatory Pharmacy Anticoagulation Clinic Anticoagulation Episode Summary Anticoagulation Care Providers Provider Role Specialty Phone number Stas Mora MD Referring Family Medicine [phone] Roby Flores is a 88 year old [...] ALLERGIES No Known Allergies Indication for Warfarin: prison current use of 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 Elise Paredes [facility] Clinical Pharmacist, Pharmacy Anticoagulation Clinic Pharmacy Anticoagulation Clinic Pager: [phone]. 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 Normal [facility] PT panel Coag (PPP)on 2023 INR Coag (PPP) [Relative time] 3.6 {INR} High 0.9-1.3 [facility] Comment on above: Order Comment: Speci men Type: BLOOD SPECIMENOrdering Facility: [facility] Address: [address] [place] [address] Result Comment: Mary min K Antagonist (VKA) Therapeutic Range: INR 2 to 3 (Target INR of 2.5) Note: For patients treated with VKA drugs, such as warfarin, the [employer] 2012 Guideline recommends [...] Chest 2012, 141:7S-47S Avel RA, et al. [facility] 2017, 70: 252-289 Performed By: #### 3 4528-0 ####[facility] [id number] [place] [address] [place] PT Coag (PPP) [Time] 35.1 s High <13.1 [facility] Comment on above: Order Comment: Speci men Type: BLOOD SPECIMENOrdering Facility: [facility] Address: [address] [place] [address] Performed By: #### 3 4528-0 ####[facility] [id number] [place] [address] [place] Gene 02-10-2024 MICHELINE Telephone (SHAY) ROBY FLORES ([id number]) 1935 M Date Time Provider Department 02/10/24 CORETTA JALLOH During your visit today, we recorded the following information about you: Coretta Jalloh [facility] 02/10/2024 9:12 AM Signed [facility] Ambulatory Pharmacy Anticoagulation Clinic Anticoagulation Episode Summary Anticoagulation Care Providers Provider Role Specialty Phone number Stas Mora MD Referring Family Medicine [phone] Roby Flores is a 88 year old [...] ALLERGIES No Known Allergies Indication for Warfarin: prison current use of 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 Coretta Jalloh [facility] Clinical Pharmacist, Pharmacy Anticoagulation Clinic Pharmacy Anticoagulation Clinic Pager: [phone]. GaelCoretta jamison [facility] 02/24/2024 3:53 PM Signed Patient was due to test INR today at the lab - will continue to monitor for results. 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 current use of anticoagulant [Z79.01]09/22/2016 Paroxysmal atrial fibrillation (HCC) [I48.0] 09/22/2016 Hyperlipidemia [E78.5] 08/26/2022 Encounter Status:Closed by CORETTA JALLOH on 02/10/24 Normal [facility] PT panel Coag (PPP)on 2023 INR Coag (PPP) [Relative time] 3.3 {INR} High 0.9-1.3 [facility] Comment on above: Order Comment: Speci men Type: BLOOD SPECIMENOrdering Facility: [facility] Address: [address] [place] [address] Result Comment: Mary min K Antagonist (VKA) Therapeutic Range: INR 2 to 3 (Target INR of 2.5) Note: For patients treated with VKA drugs, such as warfarin, the [employer] 2012 Guideline recommends [...] Chest 2012, 141:7S-47S Avel RA, et al. [facility] 2017, 70: 252-289 Performed By: #### 3 4528-0 ####[facility] [id number] [place] [address] [place] PT Coag (PPP) [Time] 31.4 s High <13.1 [facility] Comment on above: Order Comment: Speci men Type: BLOOD SPECIMENOrdering Facility: [facility] Address: [address] [place] [address] Performed By: #### 3 4528-0 ####[facility] BERNICE FAULKNER [id number] [address] [place] CNPMarizol 01-20-2024 CNPN Telephone (PHAMTE) ROBY FLORES ([id number]) 1935 M Date Time Provider Department 01/20/24 CORETTA JALLOH During your visit today, we recorded the following information about you: Coretta Jalloh RPh 01/20/2024 10:25 AM Signed [facility] Ambulatory Pharmacy Anticoagulation Clinic Anticoagulation Episode Summary Anticoagulation Care Providers Provider Role Specialty Phone number Stas Mora MD Referring Family Medicine [phone] Roby Garcia Sandra is a 88 year [...] ALLERGIES No Known Allergies Indication for Warfarin: prison current use of 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 Coretta Jalloh [facility] Clinical Pharmacist, Pharmacy Anticoagulation Clinic Pharmacy Anticoagulation Clinic Pager: [phone]. 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 current use of anticoagulant [Z79.01]09/22/2016 Paroxysmal atrial fibrillation (HCC) [I48.0] 09/22/2016 Hyperlipidemia [E78.5] 08/26/2022 Encounter Status:Closed by CORETTA JALLOH on 01/20/24 Normal [facility] PT panel Coag (PPP)on 2023 INR Coag (PPP) [Relative time] 3.4 {INR} High 0.9-1.3 [facility] Comment on above: Order Comment: Speci men Type: BLOOD SPECIMENOrdering Facility: [facility] Address: [facility] [place] [address] Result Comment: Mary min K Antagonist (VKA) Therapeutic Range: INR 2 to 3 (Target INR of 2.5) Note: For patients treated with VKA drugs, such as warfarin, the [employer] 2012 Guideline recommends [...] Chest 2012, 141:7S-47S Avel RA, et al. [facility] 2017, 70: 252-289 Performed By: #### 3 4528-0 ####[facility] [id number] [place] [address] [place] PT Coag (PPP) [Time] 31.8 s High <13.1 [facility] Comment on above: Order Comment: Speci men Type: BLOOD SPECIMENOrdering Facility: [facility] Address: [address] [place] [address] Performed By: #### 3 4528-0 ####[facility] [id number] [address] [place] Gene 01-04-2024 [facility] Telephone ([facility] ROBY FLORES ([id number]) 1935 M Date Time Provider Department 01/04/24 TSAS MORA [facility] During your visit today, we recorded [...] rx needs completed. Please advise Jenna Fitzpatrick APRN.DATASTAGE CONSULTANT 01/04/2024 10:42 AM Signed The following approved medication requests have been transmitted electronically. Requested Prescriptions Signed Prescriptions Disp Refills warfarin (COUMADIN) 3 mg tablet 30 tablet 11 Sig: Take 1 tablet by mouth daily as directed. 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 Encounter Status:Closed by JENNA FITZPATRICK on 01/04/24 [facility] Gene 12-24-2023 SHEMARN Telephone (TIAE) FLORES,ROBY Garcai ([id number]) 1935 M Date Time Provider Department 12/24/23 ELISE PAREDES During your visit today, we recorded the following information about you: Elise Paredes, [facility] 12/24/2023 2:32 PM Signed [facility] Ambulatory Pharm[facility] Anticoagulation Clinic Anticoagulation Episode Summary Anticoagulation Care Providers Provider Role Specialty Phone number Stas Mora MD Referring Family Medicine [phone] Roby Radha Flores is a 88 year [...] ALLERGIES No Known Allergies Indication for Warfarin: 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 current use of anticoagulant Paroxysmal atrial fibrillation (hcc) Anticoagulation Episode Summary Current INR goal: 2.0-3.0 Assessment: INR result of 2.2 is therapeutic Plan: Current Warfarin Dosing As of 12/24/2023 Full warfarin instructions: 2.5 mg every Sun; 3 mg all other days Left voice message Advised patient to continue current weekly dose as noted above Next lab INR check scheduled on 01/21/2024 Elise Paredes [facility] Clinical Pharmacist, Pharmacy Anticoagulation Clinic Pharmacy Anticoagulation Clinic Pager: [phone]. 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 prison current use of anticoagulant [Z79.01]09/22/2016 Paroxysmal atrial fibrillation (HCC) [I48.0] 09/22/2016 Hyperlipidemia [E78.5] 08/26/2022 Encounter Status:Closed by ELISE PAREDES on 12/24/23 Normal [facility] PT panel Coag (PPP)on 2023 INR Coag (PPP) [Relative time] 2.2 {INR} High 0.9-1.3 [facility] Comment on above: Order Comment: Speci men Type: BLOOD SPECIMENOrdering Facility: [facility] Address: [address] [place] [address] Result Comment: Mary min K Antagonist (VKA) Therapeutic Range: INR 2 to 3 (Target INR of 2.5) Note: For patients treated with VKA drugs, such as warfarin, the [employer] 2012 Guideline recommends [...] Chest 2012, 141:7S-47S Avel CARDONA et al. [facility] 2017, 70: 252-289 Performed By: #### 3 4528-0 ####[facility] [id number] [place] [address] [place] PT Coag (PPP) [Time] 22.1 s High 9.7-13.0 [facility] Comment on above: Order Comment: Speci men Type: BLOOD SPECIMENOrdering Facility: [facility] Address: [address] [place] [address] Performed By: #### 3 4528-0 ####[facility] [id number] [address] [place] CNPNon 12-10-2023 CNPN Telephone (PHAMTE) ROBY FLORES ([id number]) 1935 M Date Time Provider Department 12/10/23 ELISE PAREDES PHAMAHENDRA During your visit today, we recorded the following information about you: Elise Paredes, [facility] 12/10/2023 2:21 PM Signed [facility]ulatory [facility] Anticoagulation Clinic Anticoagulation Episode Summary Anticoagulation Care Providers Provider Role Specialty Phone number Stas Mora MD Referring Family Medicine [phone] Roby Garcia Sandra is a 88 year [...] ALLERGIES No Known Allergies Indication for Warfarin: prison current use of anticoagulant Paroxysmal atrial fibrillation (hcc) Anticoagulation Episode Summary Current INR goal: 2.0-3.0 Assessment: INR result of 1.9 is SUBtherapeutic due to: unknown cause - did not speak to patient Plan: Current Warfarin Dosing As of 12/10/2023 Full warfarin instructions: 2.5 mg every Sun; 3 mg all other days Left voice message for Gabby at [phone] (home) Advised patient to increase total weekly regimen Next lab INR check scheduled on 12/24/2023 Elise Paredes [facility] Clinical Pharmacist, Pharmacy Anticoagulation Clinic Pharmacy Anticoagulation Clinic Pager: [phone]. 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 current use of anticoagulant [Z79.01]09/22/2016 Paroxysmal atrial fibrillation (HCC) [I48.0] 09/22/2016 Hyperlipidemia [E78.5] 08/26/2022 Encounter Status:Closed by ELISE PAREDES on 12/10/23 Normal [facility] PT panel Coag (PPP)on 2023 INR Coag (PPP) [Relative time] 1.9 {INR} High 0.9-1.3 [facility] Comment on above: Order Comment: Speci men Type: BLOOD SPECIMENOrdering Facility: [facility] Address: [address] [place] [address] Result Comment: Mary min K Antagonist (VKA) Therapeutic Range: INR 2 to 3 (Target INR of 2.5) Note: For patients treated with VKA drugs, such as warfarin, the [employer] 2012 Guideline recommends [...] Chest 2012, 141:7S-47S Avel RA, et al. [facility] 2017, 70: 252-289 Performed By: #### 3 4528-0 ####[facility] [id number] [place] [address] [place] PT Coag (PPP) [Time] 18.8 s High 9.7-13.0 [facility] Comment on above: Order Comment: Speci men Type: BLOOD SPECIMENOrdering Facility: [facility] Address: [address] [place] [address] Performed By: #### 3 4528-0 ####[facility] [id number] [place] [address] [place] CBC W Auto Differential pane l (Bld)on 06-04-2023 Basophils (Bld) [#/Vol] 0.06 10*3/uL <0.11 k/uL [facility] Basophils/100 WBC (Bld) 0.9 % [facility] Differential cell count method Nom (Bld) Auto [facility] Eosinophils (Bld) [#/Vol] 0.16 10*3/uL <0.46 k/uL [facility] Eosinophils/100 WBC (Bld) 2.4 % [facility] Erythrocyte distribution width (RBC) [Ratio] 15.7 % High 11.5 - 15.0 % [facility] Hematocrit (Bld) [Volume fraction] 34.9 % Low 39.0 - 51.0 % [facility] Hemoglobin (Bld) [Mass/Vol] 10.0 g/dL Low 13.0 - 17.0 g/dL [facility] Immature granulocytes (Bld) [#/Vol] <0.10 k/uL [facility] Immature granulocytes/100 WBC (Bld) 0.3 % [facility] Lymphocytes (Bld) [#/Vol] 1.65 10*3/uL 1.00 - 4.00 k/uL [facility] Lymphocytes/100 WBC (Bld) 24.8 % [facility] MCH (RBC) [Entitic mass] 20.9 pg Low 26.0 - 34.0 pg [facility] MCHC (RBC) [Mass/Vol] 28.7 g/dL Low 30.5 - 36.0 g/dL [facility] MCV (RBC) [Entitic vol] 73.0 fL Low 80.0 - 100.0 fL [facility] Monocytes (Bld) [#/Vol] 0.61 10*3/uL <0.87 k/uL [facility] Monocytes/100 WBC (Bld) 9.2 % [facility] Neutrophils (Bld) [#/Vol] 4.16 10*3/uL 1.45 - 7.50 k/uL [facility] Neutrophils/100 WBC (Bld) 62.4 % [facility] Nucleated RBC (Bld) [#/Vol] <0.01 k/uL [facility] Nucleated RBC/100 WBC (Bld) [Ratio] 0.0 /100 WBC [facility] Platelet mean volume (Bld) [Entitic vol] 10.7 fL 9.0 - 12.7 fL [facility] Platelets (Bld) [#/Vol] 297 10*3/uL 150 - 400 k/uL [facility] RBC (Bld) [#/Vol] 4.78 10*6/uL 4.20 - 6.00 m/uL [facility] WBC (Bld) [#/Vol] 6.66 10*3/uL 3.70 - 11.00 k/uL [facility] MRI BRAIN WO IVCONon 023 [facility] Absolute lymphocyte countOrd ered By: Brian Cunningham on 02-10-2023 Lymphocytes Auto (Unsp spec) [#/Vol] 0.99 10*3/uL 0.83-4.51 [facility] Basophil percentageOrdered B y: Brian Cunningham on 02-10-2023 Basophil percentage 0-5 SEEN /hpf 0-5 [facility] Basophils/100 WBC (Bld) 0.8 % 0-1 [facility] Chloride [Moles/Vol] 108 mmol/L 98-107 [facility] Eosinophils/100 WBC (Bld) 0.4 % 0-5 [facility] Glucose [Mass/Vol] 117 mg/dL 74-106 [facility] Comment on above: Fasting Glucose resu lt from 100 to 125 mg/dL suggests IMPAIRED HOMEOSTASIS per A.D.A. criteria. Neutrophils (Bld) [#/Vol] 5.8 10*3/uL 2.0-7.7 [facility] Neutrophils/100 WBC (Bld) 77.9 % 47-70 [facility] Potassium [Moles/Vol] 4.0 mmol/L 3.5-5.1 [facility] Sodium [Moles/Vol] 140 mmol/L 136-145 [facility] WBC (Bld) [#/Vol] 7.5 10*3/uL 4.4-11.0 [facility] Bilirubin Test strip Ql (U)O rdered By: Brian Cunningham on 02-10-2023 Bilirubin Ql (U) 1 mg/dL Negative [facility] Comment on above: COLOR OF URINE MAY A FFECT DIPSTICK RESULTS. Blood erythrocytes count (nu mber/volume)Ordered By: Brian Cunningham on 02-10-2023 RBC (Bld) [#/Vol] 4.42 10*6/uL 4.6-6.2 [facility] Blood hemoglobin measurement (mass/volume)Ordered By: Brian Cunningham on 02-10-2023 Hemoglobin (Bld) [Mass/Vol] 10.6 g/dL 13.0-16.5 [facility] Blood lymphocytes/100 leukoc ytesOrdered By: Brian Cunningham on 02-10-2023 Lymphocytes/100 WBC (Bld) 13.3 % 19-41 [facility] Blood monocytes/100 leukocyt esOrdered By: Brian Cunningham on 02-10-2023 Monocytes/100 WBC (Bld) 7.2 % 0-10 [facility] Blood platelet mean volumeOr dered By: Brian Cunningham on 02-10-2023 Platelet mean volume (Bld) [Entitic vol] 9.9 fL 6.2-12.0 [facility] Determination of erythrocyte mean corpuscular volume (MCV)Ordered By: Brian Cunningham on 02-10-2023 MCV (RBC) [Entitic vol] 81.9 fL 80-94 [facility] Hematocrit Auto (Bld) [Volum e fraction]Ordered By: Brian Cunningham on 02-10-2023 Hematocrit (Bld) [Volume fraction] 36.2 % 40-54 [facility] INR in Blood by Coagulation assayOrdered By: Brian Cunningham on 02-10-2023 INR Coag (Bld) [Relative time] 1.2 {INR} [facility] Influenza virus A and B and SARS-CoV-2 (COVID-19) Ag panel - Upper respiratory specimOrdered By: Brian Cunningham on 02-10-2023 SARS-CoV-2 (COVID-19) RNA LOLI+probe Ql (Resp) [facility] Ketones Test strip Ql (U)Ord ered By: Brian Cunningham on 02-10-2023 Ketones Ql (U) 5 mg/dl Negative [facility] Laboratory - Chemistry and C hemistry - challengeOrdered By: Brian Cunningham on 02-10-2023 CO2 [Moles/Vol] 30.0 mmol/L 21.0-32.0 [facility] Urea nitrogen/Creatinine [Mass ratio] 23.8 mg/mg 10-20 [facility] Laboratory - CoagulationOrde red By: Brian Cunningham on 02-10-2023 aPTT Coag (Bld) [Time] 26.3 s 24.1-36.2 [facility] PT Coag (PPP) [Time] 15.6 s 11.7-14.9 [facility] Laboratory - Hematology and Cell countsOrdered By: Brian Cunningham on 02-10-2023 Erythrocyte distribution width (RBC) [Entitic vol] 41.8 fL 35.1-43.9 [facility] Erythrocyte distribution width (RBC) [Ratio] 14.1 % 11.6-14.6 [facility] Immature granulocytes/100 WBC (Bld) 0.400 % 0.0-0.9 [facility] Comment on above: IG% - Immature Granu locytes (promyelocytes, myelocytes and metamyelocytes) > 1% indicates that a LEFT SHIFT is Present. MCH (RBC) [Entitic mass] 24.0 pg 27.0-32.0 [facility] Nucleated RBC/100 WBC (Bld) [Ratio] 0 % 0-5 [facility] MCHC Auto (RBC) [Mass/Vol]Or dered By: Brian Cunningham on 02-10-2023 MCHC (RBC) [Mass/Vol] 29.3 g/dL 32-36 [facility] Mucus LM Ql (Urine sed)Order ed By: Brian Cunningham on 02-10-2023 Mucus Ql (Urine sed) 0 SEEN /hpf [facility] Nitrite Test strip Ql (U)Ord ered By: Brian Cunningham on 02-10-2023 Nitrite Ql (U) Negative Negative [facility] No Panel InformationOrdered By: Brian Cunningham on 02-10-2023 Estimated Creatinine Clearance Calc 68.37 ml/min [facility] Estimated GFR (MDRD) Amer 118 mL/min >60 [facility] Comment on above: GFR Calc Estimated GFR (MDRD) Non-Af Amer 97 mL/min >60 [facility] Comment on above: Non- GFR Calc Troponin I High Sensitivity 16 pg/mL 3.0-78.0 [facility] Comment on above: Please Note: [place] Units and Gender Specific Reference Ranges. For more information see Policy Stat Procedure [place] High Sensitivity Troponin (TNIH) and attachments. Platelets bldOrdered By: Caitlyn Cunningham on 02-10-2023 Platelets (Bld) [#/Vol] 328 10*3/uL 150-450 [facility] Protein Test strip Ql (U)Ord ered By: Brian Cunningham on 02-10-2023 Protein Ql (U) 15 mg/dl Negative [facility] Serum or plasma calcium alvaro urement (mass/volume)Ordered By: Brian Cunningham on 02-10-2023 Calcium [Mass/Vol] 8.9 mg/dL 8.5-10.1 [facility] Serum or plasma creatinine m easurement (mass/volume)Ordered By: Brian Cunningham on 02-10-2023 Creatinine [Mass/Vol] 0.80 mg/dL 0.70-1.30 [facility] Comment on above: The validity of the calculated GFR & GFRAA in patients over 70 years has not been determined. Clinical correlation is essential. Serum or plasma urea nitroge n measurement (mass/volume)Ordered By: Brian Cunningham on 02-10-2023 Urea nitrogen [Mass/Vol] 19 mg/dL 7-18 [facility] Squamous epithelial cells de tection in urine sediment by light microscopyOrdered By: Brian Cunningham on 02-10-2023 Epithelial cells.squamous LM Ql (Urine sed) 0 SEEN /hpf 0-5 [facility] Thin prep Papanicolaou smear with manual screeningOrdered By: Brian Cunningham on 02-10-2023 Thin prep Papanicolaou smear with manual screening 2 5-15 [facility] Urine blood detectionOrdered By: Brian Cunningham on 02-10-2023 RBC Ql (U) Negative Negative [facility] RBC Ql (U) 0 SEEN /hpf 0-5 [facility] Urine clarityOrdered By: Caitlyn Cunningham on 02-10-2023 Clarity (U) Clear Clear [facility] Urine color determinationOrd ered By: Brian Cunningham on 02-10-2023 Color (U) Yellow Yellow [facility] Urine glucose detectionOrder ed By: Brian Cunningham on 02-10-2023 Glucose Ql (U) Normal mg/dl Normal [facility] Urine leukocyte esterase det ection by dipstickOrdered By: Brian Cunningham on 02-10-2023 Leukocyte esterase Test strip Ql (U) 25 /ul Negative [facility] Urine pHOrdered By: Brian swain on 02-10-2023 pH (U) 6.5 [pH] 5.0 - 8.0 [facility] Urine sediment bacteria coun t by microscopy (number/high power field)Ordered By: Brian Cunningham on 02-10-2023 Bacteria LM.HPF (Urine sed) [#/Area] 0 /[HPF] None Seen [facility] Urine specific gravity measu rementOrdered By: Brian Cunningham on 11-21-2023 Specific gravity (U) [Rel density] 1.015 1.002-1.03 0 [facility] Urobilinogen Auto test strip Ql (U)Ordered By: Brian Cunningham on 02-10-2023 Urobilinogen Ql (U) 4 mg/dl [facility]RAIN W/O [...] 11/17/2022 4:26:20 PM Ordering Provider: STERLING LYNCH [facility] [place] Pelvis and Hip - left AP and Lateral frogon 05-21-2022 IMPRESSION: No acute fracture or hip dislocation Warp Clamper: EDUAR Transcribe Date/Time: May 21 2022 3:41P Dictated by : JUDY MCKENZIE MD This examination was interpreted and the report reviewed and electronically signed by: JUDY MCKENZIE MD on May 21 2022 3:43PM [facility] DIVISION OF RADIOLOGY * * *Final Report* [...] Small acetabular osteophytes. DIVISION OF RADIOLOGY Provider, [facility] - 05/21/2022 * * *Final Report* [...] IMPRESSION: No acute fracture or hip dislocation Warp Clamper: PSCB Transcribe Date/Time: May 21 2022 3:41P Dictated by : JUDY MCKENZIE MD This examination was interpreted and the report reviewed and electronically signed by: JUDY MCKENZIE MD on May 21 2022 3:43PM EST [facility] Radiology Study observation (narrative) [facility] XR Pelvis and Hip - left AP and Lateral frogOrdered By: Ccf Provider on 05-21-2022 [facility] PT panel Coag (PPP)on 2022 INR Coag (Bld) [Relative time] 1.7 {INR} [facility] Basophil percentageon 2021 Cholesterol [Mass/Vol] 152 mg/dL <200 [facility] Work Phone: Comment on above: <200 mg/dL Desirable 200-240 mg/dL Borderline >240 mg/dL High Risk Triglyceride [Mass/Vol] 76 mg/dL <199 [facility] Work Phone: Comment on above: The drugs N-Acetylcy steine and Metamizole may falsely depress this assay.Serum Triglycerides Reference Interval Normal <150 mg/dL Borderline high 150 - 199 mg/dL High 200 - 499 mg/dL Very High > or = 500 mg/dL INR in Blood by Coagulation assayon 12-22-2021 INR Coag (Bld) [Relative time] 2.5 {INR} [facility] Work Phone: Laboratory - Chemistry and C hemistry - challengeon 12-22-2021 Magnesium [Mass/Vol] 2.1 mg/dL 1.6-2.6 [facility] Work Phone: Laboratory - Coagulationon 1 PT Coag (PPP) [Time] 27.0 s 11.7-14.9 [facility] Work Phone: No Panel Informationon 12-22 Thyroid Stimulating Hormone (TSH) 0.42 uIU/mL 0.358-3.74 [facility] Work Phone: Serum or plasma cholesterol in HDL measurement (mass/volume)on 12-22-2021 Cholesterol in HDL [Mass/Vol] 35 mg/dL >40 [facility] Work Phone: Comment on above: The drugs N-Acetylcy steine and Metamizole may falsely depress this assay. Reference Range HDL <40 mg/dL Low HDL Cholesterol HDL >or= 60 mg/dL High HDL Cholesterol Serum or plasma cholesterol in VLDL measurement (mass/volume)on 12-22-2021 Cholesterol in VLDL [Mass/Vol] 15 mg/dL 5-40 [facility] Work Phone: Serum or plasma low density lipoprotein (LDL) cholesterol measurement (mass/volume)on 12-22-2021 Cholesterol in LDL [Mass/Vol] 102 mg/dL 0-130 [facility] Work Phone: Whole blood hemoglobin A1c/t otal hemoglobin ratio (mass fraction)on 12-22-2021 HbA1c (Bld) [Mass fraction] 5.9 % 3.8-5.6 [facility] Work Phone: Comment on above: Normal < 5.7 % Predi abetic 5.7 - 6.4 % Diabetic >or= 6.5 % Please note range changes. Absolute lymphocyte counton 12-21-2021 Lymphocytes Auto (Unsp spec) [#/Vol] 1.23 10*3/uL 0.83-4.51 [facility] Work Phone: [phone] Basophil percentageon 2021 Basophils/100 WBC (Bld) 0.4 % 0-1 [facility] Work Phone: Chloride [Moles/Vol] 106 mmol/L 98-107 [facility] Work Phone: Eosinophils/100 WBC (Bld) 1.4 % 0-5 [facility] Work Phone: [phone] Glucose [Mass/Vol] 107 mg/dL 74-106 [facility] Work Phone: [phone] Comment on above: Fasting Glucose resu lt from 100 to 125 mg/dL suggests IMPAIRED HOMEOSTASIS per A.D.A. criteria. Neutrophils (Bld) [#/Vol] 5.7 10*3/uL 2.0-7.7 [facility] Work Phone: Neutrophils/100 WBC (Bld) 72.4 % 47-70 [facility] Work Phone: Potassium [Moles/Vol] 3.7 mmol/L 3.5-5.1 [facility] Work Phone: Sodium [Moles/Vol] 141 mmol/L 136-145 [facility] Work Phone: WBC (Bld) [#/Vol] 7.9 10*3/uL 4.4-11.0 [facility] Work Phone: Blood erythrocytes count (nu mber/volume)on 12-21-2021 RBC (Bld) [#/Vol] 4.85 10*6/uL 4.6-6.2 [facility] Work Phone: Blood hemoglobin measurement (mass/volume)on 12-21-2021 Hemoglobin (Bld) [Mass/Vol] 14.5 g/dL 13.0-16.5 [facility] Work Phone: Blood lymphocytes/100 leukoc yteson 12-21-2021 Lymphocytes/100 WBC (Bld) 15.5 % 19-41 [facility] Work Phone: Blood monocytes/100 leukocyt eson 12-21-2021 Monocytes/100 WBC (Bld) 9.9 % 0-10 [facility] Work Phone: Blood platelet mean volumeon 12-21-2021 Platelet mean volume (Bld) [Entitic vol] 10.2 fL 6.2-12.0 [facility] Work Phone: Determination of erythrocyte mean corpuscular volume (MCV)on 12-21-2021 MCV (RBC) [Entitic vol] 92.0 fL 80-94 [facility] Work Phone: Hematocrit Auto (Bld) [Volum e fraction]on 12-21-2021 Hematocrit (Bld) [Volume fraction] 44.6 % 40-54 [facility] Work Phone: INR in Blood by Coagulation assayon 12-21-2021 INR Coag (Bld) [Relative time] 2.3 {INR} [facility] Work Phone: Laboratory - Chemistry and C hemistry - challengeon 12-21-2021 CO2 [Moles/Vol] 29.0 mmol/L 21.0-32.0 [facility] Work Phone: Urea nitrogen/Creatinine [Mass ratio] 21.8 mg/mg 10-20 [facility] Work Phone: Laboratory - Coagulationon aPTT Coag (Bld) [Time] 36.6 s 24.1-36.2 [facility] Work Phone: PT Coag (PPP) [Time] 24.7 s 11.7-14.9 [facility] Work Phone: Laboratory - Hematology and Cell countson 12-21-2021 Erythrocyte distribution width (RBC) [Entitic vol] 42.2 fL 35.1-43.9 [facility] Work Phone: Erythrocyte distribution width (RBC) [Ratio] 12.5 % 11.6-14.6 [facility] Work Phone: Immature granulocytes/100 WBC (Bld) 0.400 % 0.0-0.9 [facility] Work Phone: Comment on above: IG% - Immature Granu locytes (promyelocytes, myelocytes and metamyelocytes) > 1% indicates that a LEFT SHIFT is Present. MCH (RBC) [Entitic mass] 29.9 pg 27.0-32.0 [facility] Work Phone: Nucleated RBC/100 WBC (Bld) [Ratio] 0 % 0-5 [facility] Work Phone: MCHC Auto (RBC) [Mass/Vol]on 12-21-2021 MCHC (RBC) [Mass/Vol] 32.5 g/dL 32-36 [facility] Work Phone: No Panel Informationon 12-21 Estimated Creatinine Clearance Calc 66.90 ml/min [facility] Work Phone: Estimated GFR (MDRD) Amer 107 mL/min >60 [facility] Work Phone: Comment on above: GFR Calc Estimated GFR (MDRD) Non-Af Amer 88 mL/min >60 [facility] Work Phone: Comment on above: Non- GFR Calc Troponin I High Sensitivity 13 pg/mL 3.0-78.0 [facility] Work Phone: Comment on above: Please Note: New [place] Units and Gender Specific Reference Ranges. For more information see Policy Stat Procedure [place] High Sensitivity Troponin (TNIH) and attachments. Platelets bldon 12-21-2021 Platelets (Bld) [#/Vol] 241 10*3/uL 150-450 [facility] Work Phone: Serum or plasma calcium alvaro urement (mass/volume)on 12-21-2021 Calcium [Mass/Vol] 9.2 mg/dL 8.5-10.1 [facility] Work Phone: Serum or plasma creatinine m easurement (mass/volume)on 12-21-2021 Creatinine [Mass/Vol] 0.87 mg/dL 0.70-1.30 [facility] Work Phone: Comment on above: The validity of the calculated GFR & GFRAA in patients over 70 years has not been determined. Clinical correlation is essential. Serum or plasma urea nitroge n measurement (mass/volume)on 12-21-2021 Urea nitrogen [Mass/Vol] 19 mg/dL 10-07 [facility] Work Phone: Thin prep Papanicolaou smear with manual screeningon 12-21-2021 Thin prep Papanicolaou smear with manual screening 08-04 [facility] Work Phone: CBC panel Auto (Bld)on 07-08 Erythrocyte distribution width (RBC) [Ratio] 13.1 % 11.5 - 15.0 % [facility] Hematocrit (Bld) [Volume fraction] 49.5 % 39.0 - 51.0 % [facility] Hemoglobin (Bld) [Mass/Vol] 15.9 g/dL 13.0 - 17.0 g/dL [facility] MCH (RBC) [Entitic mass] 29.6 pg 26.0 - 34.0 pg [facility] MCHC (RBC) [Mass/Vol] 32.1 g/dL 30.5 - 36.0 g/dL [facility] MCV (RBC) [Entitic vol] 92.2 fL 80.0 - 100.0 fL [facility] Nucleated RBC (Bld) [#/Vol] 10*3/uL <0.01 k/uL [facility] Platelet mean volume (Bld) [Entitic vol] 10.7 fL 9.0 - 12.7 fL [facility] Platelets (Bld) [#/Vol] 235 10*3/uL 150 - 400 k/uL [facility] RBC (Bld) [#/Vol] 5.37 10*6/uL 4.20 - 6.00 m/uL [facility] WBC (Bld) [#/Vol] 10.33 10*3/uL 3.70 - 11.00 k/uL [facility] XR Lumbar spine 3 Viewson IMPRESSION: 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 Warp Clamper: EDUAR Transcribe Date/Time: Mar 13 2020 8:34A Dictated by : GABRIELLE BENTLEY MD This examination was interpreted and the report reviewed and electronically signed by: GABRIELLE BENTLEY MD on Mar 13 2020 8:35AM [facility] DIVISION OF RADIOLOGY * * *Final Report* [...] spine are presented. FINDINGS: There are five yco-iaf-zxksirm lumbar vertebrae. No fracture or subluxations are noted. L5-S1 disc space narrowing is demonstrated. There is significant osteophyte formation. Kissing spine seen on lateral view. DIVISION OF RADIOLOGY Provider, [facility] - 03/13/2020 * * *Final Report* [...] spine are presented. FINDINGS: There are five apl-tgu-rcfwawg lumbar vertebrae. No fracture or subluxations are noted. L5-S1 disc space narrowing is demonstrated. There is significant osteophyte formation. Kissing spine seen on lateral view. 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 Warp Clamper: EDUAR Transcribe Date/Time: Mar 13 2020 8:34A Dictated by : GABRIELLE BENTLEY MD This examination was interpreted and the report reviewed and electronically signed by: GABRIELLE BENTLEY MD on Mar 13 2020 8:35AM EST [facility] XR Lumbar spine 3 ViewsOrder ed By: [facility]cf Provider on 03-13-2020 [facility] XR Lumbar spine 3 Viewson Radiology Study observation (narrative) [facility] PROGRESSon 06-09-2017 PROGRESS HNO ID: [id number] Author: Vesta Marin PSR Service: (none) Author Type: (none) Type: Progress Notes Filed: 06/09/2017 4:13 PM Note Text: Spoke with the patient and scheduled his Corotid Doppler on June 24, 2017 at 9:[address] [facility] CNOVon 06-02-2017 CNOV Office Visit (AGCARDWST) -------ROBY FLORES ([id number]) 1935 MDate Time Provider Department06/02/17 9:00 AM [...] weeks.He will be getting labs from the [facility] in the near future and I've askedfor a copy.INR has been within range. He is due today.I will see him in 8 months or as needed. If there is increased chest pain orrecurrent syncope, he has been advised to contact me.Written and verbal health teaching given to patient, patient verbalizesunderstanding and agrees with treatment plan.This note was generated using [employer] voice recognition system, and there may besome [...] no significantchange.Electronic ally Signed:Darrell Oliveira, [facility] 2017 9:15 [facility]: Carmen Vasquez MD 06/02/2017 9:21 AM [...] 24, 2017 at9:00 amReferring Provider: DARRELL OLIVEIRA [[id number]]Allergies As of Date: 06/02/2017(No Known Allergies)Date Reviewed: 06/02/2017Reviewed by: Russell Breaux) Anabella - Fully AssessedReason for Visit: Recheck [92]Primary Visit Diagnosis:ASHD (arteriosclerotic heart disease) [I25.10] Other Visit Diagnosis:PAF (paroxysmal atrial fibrillation) ([facility]) [I48.0]Order(s):ECG B/O W INTERP (MED OFFICE) [ECG06] Order #: [id number] Fosinopril Sodium 40 mg tabletTake 1/2 tablet [...] FOR* 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 Please give serious thought to the following areas and commit to making care home changes. EAT A WHOLE FOOD, PLANT BASED [...] on file. Cosign accepted by STAS MORA MD[[id number]] on 09/30/2016 2:01 PM Fosinopril Sodium 40 [...] on file.Follow-up and Disposition History RecordedEncounter Number: [id number] Status:Closed by DARRELL OLIVEIRA MD on 06/02/17 [facility] PROGRESSon 06-02-2017 PROGRESS HNO ID: [id number] thor: Darrell Stahl: (none)Author Type: PhysicianType: Progress [...] weeks.He will be getting labs from the [facility] in the near future and I'veasked for a copy.INR has been within range. He is due today.I will see him in 8 months or as needed. If there is increased chest painor recurrent syncope, he has been advised to contact me.Written and verbal health teaching given to patient, patient verbalizesunderstanding and agrees with treatment plan.This note was generated using [employer] voice recognition system, and theremay be some [...] is nosignificant change.Electronically Signed:Darrell Oliveira [facility] 2017 9:15 [facility]: Stas Mora MD 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 OBSOLETEon 01-23-2017 OBSOLETE Refill (AGCARDWST) -------ROBY FLORES ([id number]) 1935 MDate Time Provider Cnhmqkotvw97/3/17 DARRELL OLIVEIRA AGCARDWST During your visit today, we recorded the following information about you:Dao Bishop RN, RN 01/23/2017 3:15 PM SignedPatient phones requesting refills as follows:Pending Prescriptions Disp Refills WARFARIN 2.5 MG TABLET 45 tablet 11 Sig: Take 1 tablet by mouth daily as directed. 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 Status:Closed by DAO BISHOP on 01/23/17 [facility] Vital Signs Date Time Vital Sign Value Performing Clinician Facility 09-06-2024 14:15-0400 Body temperature 98 [degF] Dr. Stas Mora MD Work Phone: [facility] 09-06-2024 14:15-0400 Diastolic blood pressure 88 mm[Hg] Dr. Stas Mora MD Work Phone: [facility] 09-06-2024 14:15-0400 Heart rate 78 /min Dr. Stas Mora MD Work Phone: [facility] 09-06-2024 14:15-0400 Respiratory rate 18 /min Dr. Stas Mora MD Work Phone: [facility] 09-06-2024 14:15-0400 SaO2% (BldA) [Mass fraction] 97 % Dr. Stas Mora MD Work Phone: [facility] 09-06-2024 14:15-0400 Systolic blood pressure 137 mm[Hg] Dr. Stas Mora MD Work Phone: [facility] 09-04-2024 12:05-0400 Inhaled oxygen flow rate 2 L/min Dr. Stas Mora MD Work Phone: 9(803)454-255043 [place] [address] 09-01-2024 11:52-0400 Body height 182.[address] Stas Mora MD Work Phone: 5(488)568-130743 [place] [address] 09-01-2024 11:52-0400 Body mass index (BMI) [Ratio] 21.6 kg/m2 Dr. Stas Mora MD Work Phone: 0(972)049-989043 [place] [address] 09-01-2024 11:52-0400 Body weight 72.[address] Stas Mora MD Work Phone: 3(272)336-419543 [place] [address] 09-01-2024 11:00-0400 Diastolic blood pressure 79 mm[Hg] Dr. Stas Mora MD Work Phone: 2(501)245-702643 [place] [address] 09-01-2024 11:00-0400 Heart rate 70 /min Dr. Stas Mora MD Work Phone: 6(831)675-984743 [place] [address] 09-01-2024 11:00-0400 Respiratory rate 18 /min Dr. Stas Mora MD Work Phone: 5(914)748-748743 [place] [address] 09-01-2024 11:00-0400 SaO2% (BldA) [Mass fraction] 98 % Dr. Stas Mora MD Work Phone: 2(290)261-857043 [place] [address] 09-01-2024 11:00-0400 Systolic blood pressure 180 mm[Hg] Dr. Stas Mora MD Work Phone: 9(737)684-094043 [place] [address] 09-01-2024 09:52-0400 Body temperature 98.9 [degF] Dr. Stas Mora MD Work Phone: 1(018)801-640643 [place] [address] 09-01-2024 07:31-0400 Body height 182.[address] Stas Mora MD Work Phone: 8(510)379-385343 [place] [address] 09-01-2024 07:31-0400 Body mass index (BMI) [Ratio] 23.4 kg/m2 Dr. Stas Mora MD Work Phone: 1(781)862-757843 [place] [address] 09-01-2024 07:31-0400 Body weight 78.[address] Stas Mora MD Work Phone: [facility] 08-31-2024 11:05-0400 Body mass index (BMI) [Ratio] 22.35 kg/m2 Luciana Cisneros MD Work Phone: [facility] 08-31-2024 11:05-0400 Body weight 73.94 kg Luciana Cisneros MD Work Phone: [facility] 08-31-2024 11:05-0400 Diastolic blood pressure 74 mm[Hg] Luciana Cisneros MD Work Phone: [facility] 08-31-2024 11:05-0400 Heart rate 74 /min Luciana Cisneros MD Work Phone: [facility] 08-31-2024 11:05-0400 Respiratory rate 12 /min Luciana Cisneros MD Work Phone: [facility] 08-31-2024 11:05-0400 SaO2% (BldA) [Mass fraction] 98 % Luciana Cisneros MD Work Phone: [facility] 08-31-2024 11:05-0400 Systolic blood pressure 124 mm[Hg] Luciana Cisneros MD Work Phone: [facility] 07-28-2024 11:12-0400 Diastolic blood pressure 78 mm[Hg] Stas Mora MD Work Phone: [facility] 07-28-2024 11:12-0400 Systolic blood pressure 136 mm[Hg] Stas Mora MD Work Phone: [facility] 07-28-2024 11:10-0400 Body mass index (BMI) [Ratio] 22.4 kg/m2 Stas Mora MD Work Phone: [facility] 07-28-2024 11:10-0400 Body weight 74.1 kg Stas Mora MD Work Phone: [facility] 07-28-2024 11:10-0400 Heart rate 56 /min Stas Mora MD Work Phone: [facility] 07-28-2024 11:10-0400 Respiratory rate 16 /min Stas Mora MD Work Phone: [facility] 06-01-2024 14:52-0400 Body height 181.9 cm Luciana Cisneros MD Work Phone: [facility] 06-01-2024 14:52-0400 Body mass index (BMI) [Ratio] 22.33 kg/m2 Luciana Cisneros MD Work Phone: [facility] 06-01-2024 14:52-0400 Body weight 73.85 kg Luciana Cisneros MD Work Phone: [facility] 06-01-2024 14:52-0400 Diastolic blood pressure 60 mm[Hg] Luciana Cisneros MD Work Phone: [facility] 06-01-2024 14:52-0400 Heart rate 46 /min Luciana Cisneros MD Work Phone: [facility] 06-01-2024 14:52-0400 SaO2% (BldA) [Mass fraction] 98 % Luciana Cisneros MD Work Phone: [facility] 06-01-2024 14:52-0400 Systolic blood pressure 132 mm[Hg] Luciana Cisneros MD Work Phone: [facility] 05-26-2024 09:18-0500 Diastolic blood pressure 82 mm[Hg] Stas Mora MD Work Phone: [facility] 05-26-2024 09:18-0500 Systolic blood pressure 144 mm[Hg] Stas Mora MD Work Phone: [facility] 05-26-2024 09:06-0500 Body mass index (BMI) [Ratio] 22.19 kg/m2 Stas Mora MD Work Phone: [facility] 05-26-2024 09:06-0500 Body weight 73.5 kg Stas Mora MD Work Phone: [facility] 03-06-2025 09:06-0500 Heart rate 56 /min Stas Mora MD Work Phone: [facility] 05-26-2024 09:06-0500 Respiratory rate 18 /min Stas Mora MD Work Phone: [facility] 04-27-2024 09:34-0500 Body height 182 cm Luciana Cisneros MD Work Phone: [facility] 04-27-2024 09:34-0500 Body mass index (BMI) [Ratio] 22.51 kg/m2 Luciana Cisneros MD Work Phone: [facility] 04-27-2024 09:34-0500 Body weight 74.57 kg Luciana Cisneros MD Work Phone: [facility] 04-27-2024 09:34-0500 Diastolic blood pressure 62 mm[Hg] Luciana Cisneros MD Work Phone: [facility] 04-27-2024 09:34-0500 Heart rate 60 /min Luciana Cisneros MD Work Phone: [facility] 04-27-2024 09:34-0500 SaO2% (BldA) [Mass fraction] 98 % Luciana Cisneros MD Work Phone: [facility] 04-27-2024 09:34-0500 Systolic blood pressure 110 mm[Hg] Luciana Cisneros MD Work Phone: [facility] 11-26-2023 10:33-0400 Diastolic blood pressure 80 mm[Hg] Stas Mora MD Work Phone: [facility] 11-26-2023 10:33-0400 Systolic blood pressure 144 mm[Hg] Stas Mora MD Work Phone: [facility] 11-26-2023 10:22-0400 Body mass index (BMI) [Ratio] 21.95 kg/m2 Stas Mora MD Work Phone: [facility] 11-26-2023 10:22-0400 Body weight 71.4 kg Stas Mora MD Work Phone: [facility] 11-26-2023 10:22-0400 Heart rate 60 /min Stas Mora MD Work Phone: [facility] 11-26-2023 10:22-0400 Respiratory rate 18 /min Stas Mora MD Work Phone: [facility] 09-15-2023 08:38-0400 Body mass index (BMI) [Ratio] 24.52 kg/m2 Stas Mora MD Work Phone: [facility] 09-15-2023 08:38-0400 Body weight 79.74 kg Stas Mora MD Work Phone: [facility] 09-15-2023 08:38-0400 Diastolic blood pressure 84 mm[Hg] Stas Mora MD Work Phone: [facility] 09-15-2023 08:38-0400 Heart rate 76 /min Stas Mora MD Work Phone: [facility] 09-15-2023 08:38-0400 Respiratory rate 18 /min Stas Mora MD Work Phone: [facility] 09-15-2023 08:38-0400 Systolic blood pressure 138 mm[Hg] Stas Mora MD Work Phone: [facility] 08-14-2023 09:57-0400 Body mass index (BMI) [Ratio] 22.59 kg/m2 Stas Mora MD Work Phone: [facility] 08-14-2023 09:57-0400 Body weight 73.48 kg Stas Mora MD Work Phone: [facility] 08-14-2023 09:57-0400 Diastolic blood pressure 80 mm[Hg] Stas Mora MD Work Phone: [facility] 08-14-2023 09:57-0400 Heart rate 64 /min Stas Mora MD Work Phone: [facility] 08-14-2023 09:57-0400 Respiratory rate 14 /min Stas Mora MD Work Phone: [facility] 08-14-2023 09:57-0400 Systolic blood pressure 140 mm[Hg] Stas Mora MD Work Phone: [facility] 06-01-2023 15:08-0400 Body weight 75.75 kg Stas Mora MD Work Phone: [facility] 06-01-2023 15:08-0400 Diastolic blood pressure 90 mm[Hg] Stas Mora MD Work Phone: [facility] 06-01-2023 15:08-0400 Heart rate 82 /min Stas Mora MD Work Phone: [facility] 06-01-2023 15:08-0400 Respiratory rate 16 /min Stas Mora MD Work Phone: [facility] 06-01-2023 15:08-0400 SaO2% (BldA) [Mass fraction] 100 % Stas Mora MD Work Phone: [facility] 06-01-2023 15:08-0400 Systolic blood pressure 140 mm[Hg] Stas Mora MD Work Phone: [facility] 02-16-2023 13:57-0500 Diastolic blood pressure 62 mm[Hg] Stas Mora MD Work Phone: [facility] 02-16-2023 13:57-0500 Heart rate 62 /min Stas Mora MD Work Phone: [facility] 02-16-2023 13:57-0500 Respiratory rate 16 /min Stas Mora MD Work Phone: [facility] 02-16-2023 13:57-0500 Systolic blood pressure 110 mm[Hg] Stas Mora MD Work Phone: [facility] 02-10-2023 16:59-0500 Diastolic blood pressure 68 mm[Hg] [facility] 02-10-2023 16:59-0500 Heart rate 79 /min [facility] 02-10-2023 16:59-0500 Respiratory rate 12 /min [facility] 02-10-2023 16:59-0500 SaO2% (BldA) [Mass fraction] 98 % [facility] 02-10-2023 16:59-0500 Systolic blood pressure 153 mm[Hg] [facility] 02-10-2023 14:37-0500 Body mass index (BMI) [Ratio] 22.1 kg/m2 [facility] 02-10-2023 14:37-0500 Body weight 74.3 kg [facility] 02-10-2023 14:32-0500 Body height 182.88 cm [facility] 02-10-2023 14:32-0500 Body temperature 98 [degF] [facility] 11-17-2022 17:22-0400 Diastolic Blood Pressure Non-Invasive 68 1 [employer] [employer] [facility] 11-17-2022 17:22-0400 Heart rate 76 /min [facility] [facility] 11-17-2022 17:22-0400 Respiratory rate 18 /min [facility] [employer] [facility] 11-17-2022 17:22-0400 Systolic Blood Pressure Non-Invasive 126 1 [employer] [employer] [facility] 11-17-2022 15:23-0400 Body height 185.4 cm [facility] [employer] [facility] 11-17-2022 15:23-0400 Body temperature 97.88 [degF] [facility] [employer] [facility] 11-17-2022 15:23-0400 Body weight 79.6 kg [employer] [facility] 11-17-2022 15:23-0400 Diastolic Blood Pressure Non-Invasive 70 1 [employer] [employer] [facility] 11-17-2022 15:23-0400 Heart rate 89 /min [facility] LYNCH DO [facility] 11-17-2022 15:23-0400 Respiratory rate 18 /min [facility] [employer] [facility] 11-17-2022 15:23-0400 Systolic Blood Pressure Non-Invasive 134 1 [facility] [employer]YN[employer] [facility] 08-26-2022 13:12-0400 Body height 180.3 cm Stas Mora MD Work Phone: [facility] 08-26-2022 13:12-0400 Body weight 78.74 kg Stas Mora MD Work Phone: [facility] 08-26-2022 13:12-0400 Diastolic blood pressure 74 mm[Hg] Stas Mora MD Work Phone: [facility] 08-26-2022 13:12-0400 Heart rate 66 /min Stas Mora MD Work Phone: [facility] 08-26-2022 13:12-0400 Respiratory rate 16 /min Stas Mora MD Work Phone: [facility] 08-26-2022 13:12-0400 Systolic blood pressure 122 mm[Hg] Stas Mora MD Work Phone: [facility] 12-26-2021 11:22-0400 Body weight 78.56 kg Stas Mora MD Work Phone: [facility] 12-26-2021 11:22-0400 Diastolic blood pressure 80 mm[Hg] Stas Mora MD Work Phone: [facility] 12-26-2021 11:22-0400 Heart rate 58 /min Stas Mora MD Work Phone: [facility] 12-26-2021 11:22-0400 Respiratory rate 16 /min Stas Mora MD Work Phone: [facility] 12-26-2021 11:22-0400 Systolic blood pressure 142 mm[Hg] Stas Mora MD Work Phone: [facility] 12-22-2021 11:13-0400 Body temperature 97.6 [degF] Dr. Stas Mora Work Phone: [facility] Work Phone: 12-22-2021 11:13-0400 Diastolic blood pressure 58 mm[Hg] Dr. Stas Mora Work Phone: [facility] Work Phone: 12-22-2021 11:13-0400 Heart rate 63 /min Dr. Stas Mora Work Phone: [facility] Work Phone: 12-22-2021 11:13-0400 Respiratory rate 16 /min Dr. Stas Mora Work Phone: [facility] Work Phone: 12-22-2021 11:13-0400 SaO2% (BldA) [Mass fraction] 96 % Dr. Stas Mora Work Phone: [facility] Work Phone: 12-22-2021 11:13-0400 Systolic blood pressure 142 mm[Hg] Dr. Stas Mora Work Phone: [facility] Work Phone: 12-21-2021 20:06-0400 Body height 182.[address] Stas Mora Work Phone: [facility] Work Phone: 12-21-2021 20:06-0400 Body mass index (BMI) [Ratio] 22.6 kg/m2 Dr. Stas Mora Work Phone: [facility] Work Phone: 12-21-2021 20:06-0400 Body weight 75.[address] Stas Mora Work Phone: [facility] Work Phone: 12-21-2021 19:15-0400 Diastolic blood pressure 81 mm[Hg] [facility] Work Phone: 12-21-2021 19:15-0400 Heart rate 70 /min [facility] Work Phone: 12-21-2021 19:15-0400 Respiratory rate 18 /min [facility] Work Phone: 12-21-2021 19:15-0400 SaO2% (BldA) [Mass fraction] 96 % [facility] Work Phone: 12-21-2021 19:15-0400 Systolic blood pressure 171 mm[Hg] [facility] Work Phone: 12-21-2021 19:02-0400 Body temperature 97.6 [degF] [facility] Work Phone: 12-21-2021 18:17-0400 Body height 182.88 cm [facility] Work Phone: 12-21-2021 18:17-0400 Body mass index (BMI) [Ratio] 24.2 kg/m2 [facility] Work Phone: 12-21-2021 18:17-0400 Body weight 80.9 kg [facility] Work Phone: 09-05-2021 11:21-0400 Body height 182.9 cm Stas Mora MD Work Phone: [facility] 09-05-2021 11:21-0400 Body weight 80.2 kg Stas Mora MD Work Phone: [facility] 09-05-2021 11:21-0400 Diastolic blood pressure 70 mm[Hg] Stas Mora MD Work Phone: [facility] 09-05-2021 11:21-0400 Heart rate 62 /min Stas Mora MD Work Phone: [facility] 09-05-2021 11:21-0400 Respiratory rate 16 /min Stas Mora MD Work Phone: [facility] 09-05-2021 11:21-0400 Systolic blood pressure 136 mm[Hg] Stas Mora MD Work Phone: [facility] 07-08-2021 10:41-0400 Body weight 83.55 kg Stas Mora MD Work Phone: [facility] 07-08-2021 10:41-0400 Diastolic blood pressure 78 mm[Hg] Stas Mora MD Work Phone: [facility] 07-08-2021 10:41-0400 Heart rate 60 /min Stas Mora MD Work Phone: [facility] 07-08-2021 10:41-0400 Respiratory rate 16 /min Stas Mora MD Work Phone: [facility] 07-08-2021 10:41-0400 Systolic blood pressure 120 mm[Hg] Stas Mora MD Work Phone: [facility] Encounters Encounter Date Encounter Type Care Provider Facility Start: 11-25-2024 ambulatory Efewongbe Gabee OLS Fa cility:[facility] Start: 11-23-2024 ambulatory Efewongbe Oleghe OLS Fa cility:[facility] Start: 11-23-2024 Registered Referred Shayy Curtis MD -[facility] Start: 11-02-2024 ambulatory Efewongbe Oleghe OLS Fa cility:[facility] Start: 11-02-2024 Registered Referred Shayy Curtis MD [facility] Start: 10-31-2024 ambulatory Efewongbe Oletomye OLS Fa cility:[facility] Start: 10-31-2024 [facility] Start: 10-25-2024 End: 10-25-[address] Stas Mora MD Work Phone: [facility] Start: 10-25-2024 End: 10-25-[address] Shayy Curtis MD -[facility] Work Phone: Start: 10-20-2024 End: 10-20-[address] Stas Mora MD Work Phone: [facility] Start: 10-20-2024 End: 10-20-2024 Patient encounter procedure Halina Carmona [employer]-C [facility] Work Phone: Start: 10-06-2024 ambulatory Shayy Curtis OLS Fa cility:[facility] Start: 10-06-2024 Registered Referred Shayy Curtis MD -[facility] Start: 10-05-2024 ambulatory Shayy Curtis OLS Fa cility:[facility] Start: 10-05-2024 Registered Referred Shayy Curtis MD -[facility] Start: 09-30-2024 End: 09-30-[address] Stas Mora MD Work Phone: [facility] Start: 09-30-2024 End: 09-30-2024 Patient encounter procedure Halina Carmona NP-C -[facility] [facility] Work Phone: Start: 09-29-2024 ambulatory Shayy Curtis OLS Fa cility:[facility] Start: 09-29-2024 Registered Referred Shayy Cardozo Start: 09-28-2024 End: 09-28-[address] Stas Mora MD Work Phone: -ODELL Cardozo Start: 09-28-2024 End: 09-28-2024 Departed Referred Shayy Cardozo Start: 09-28-2024 Registered Referred Shayy Cardozo Start: 09-28-2024 End: 09-28-2024 ambulatory Stas Mora Facility:[facility] Start: 09-26-2024 End: 09-26-[address] Stas Mora MD Work Phone: -ODELL Cardozo Start: 09-26-2024 End: 09-26-2024 Departed Referred Shayy Cardozo Start: 09-26-2024 Registered Referred Shayy Cardozo Start: 09-26-2024 End: 09-26-2024 ambulatory Stas Mora Facility:[facility] Start: 09-23-2024 ambulatory Shayy GAMA Fa cility:[facility] Start: 09-23-2024 Registered Referred Shayy Cardozo Start: 09-21-2024 End: 09-22-2024 Telephone encounter Stas Mora MD Work Phone: [facility] Start: 09-21-2024 ambulatory Stas Chuyelliot Facilit y:[facility] Start: 09-21-2024 Registered Referred Shayy Cardozo Start: 09-20-2024 End: 09-20-[address] Stas Mora MD Work Phone: [facility] Start: 09-20-2024 End: 09-20-[address] Shayy Curtis MD -Formerly Named [facility] Work Phone: Start: 09-19-2024 ambulatory Stas Mora Facilit y:[facility] Start: 09-19-2024 Registered Referred Shayy Cardozo Start: 09-15-2024 ambulatory Stas Umanaoniel Facilit y:[facility] Start: 09-15-2024 Registered Referred Shayy Cardozo Start: 09-14-2024 ambulatory Shayy Curtis OLS Fa cility:[facility] Start: 09-14-2024 Registered Referred Shayy Cardozo Start: 09-12-2024 ambulatory Shayy Curtis OLS Fa cility:[facility] Start: 09-12-2024 Registered Referred Shayy Cardozo Start: 09-08-2024 End: 09-08-2024 Patient encounter procedure Halina Lintonimelda [facility] Work Phone: Start: 09-08-2024 End: 09-08-[address] Stas Mora MD Work Phone: [facility] Start: 09-08-2024 Registered Referred Shayy Cardozo Start: 09-07-2024 End: 09-07-2024 Patient encounter procedure Halina Lintonimelda [facility] Work Phone: Start: 09-07-2024 End: 09-07-[address] Stas Mora MD Work Phone: [facility] Start: 09-07-2024 Registered Referred Shayy Cardozo Start: 09-06-2024 Non-patient / Non-visit Dr. Navid Dominguez MD -[facility] Work Phone: Start: 09-05-2024 Non-patient / Non-visit Dr. Navid Dominguez MD -[facility] Work Phone: Start: 09-04-2024 Non-patient / Non-[facility] Work Phone: Start: 09-03-2024 Non-patient / Non-visit Dr. Jia [facility] Work Phone: Start: 09-02-2024 Non-patient / Non-visit Dr. Jia Urena [facility] Work Phone: Start: 09-02-2024 ambulatory aKthy Wells Facility :[facility] Start: 09-02-2024 End: 09-06-2024 Evaluation and management of inpatient Dr. Navid Dominguez MD -[facility] Work Phone: Start: 09-01-2024 End: 09-01-2024 Telephone encounter Russell Aguayo [facility] Work Phone: [facility] Comment on above: Medication Problem ( Cost) Start: 09-01-2024 ambulatory Kathy Wells Facility :[facility] Start: 09-01-2024 Evaluation and management of inpatient Dr. Kathy Wells MD -[facility] Work Phone: Start: 09-01-2024 Non-patient / Non-visit Dr. Jia Wells MD -[facility] Work Phone: Start: 09-01-[address] Stas Mora MD Work Phone: [facility] Work Phone: Start: 08-31-2024 End: 08-31-2024 Telephone encounter Coretta Jalloh [facility] Ambulatory Telemanagement Comment on above: Anticoagulation Tele phone Fu (Home INR result ) Start: 08-31-2024 End: 08-31-2024 ambulatory STAS MORA Facility:[facility] Start: 08-31-2024 End: 08-31-2024 Office outpatient visit 25 minutes Luciana Cisneros MD Work Phone: Geriatrics Comment on above: Moderate dementia wi thout behavioral disturbance, psychotic disturbance, mood disturbance, or anxiety, unspecified dementia type (HCC) (Primary Dx); Hallucinations; Screening for depression; Encounter for screening examination for other mental health and behavioral disorders Start: 08-31-2024 End: 08-31-2024 ambulatory LUCIANA CISNEROS Facility:[facility] Start: 08-03-2024 End: 08-03-2024 Telephone encounter Coretta Jalloh [facility] Ambulatory Telemanagement Comment on above: Anticoagulation Tele phone Fu (Lab INR result) Start: 08-03-2024 End: 08-03-2024 ambulatory STAS MORA Facility:[facility] Start: 07-28-2024 End: 07-28-2024 Office outpatient visit 15 minutes Stas Mora MD Work Phone: [facility] [place] Comment on above: Bursitis of right el bow, unspecified bursa (Primary Dx) Start: 07-28-2024 End: 07-28-2024 ambulatory STAS MORA Facility:[facility] Start: 07-06-2024 End: 07-06-2024 Telephone encounter Coretta Jalloh [facility] Ambulatory Telemanagement Comment on above: Anticoagulation Tele phone Fu (Lab INR result ) Start: 07-06-2024 End: 07-06-2024 ambulatory [facility] Facility:[facility] Start: 06-29-2024 End: 06-29-2024 Telephone encounter Coretta Jalloh [facility] Ambulatory Telemanagement Comment on above: Anticoagulation Tele phone Fu (Lab INR result ) Start: 06-29-2024 End: 06-29-2024 ambulatory [facility] Facility:[facility] Start: 06-01-2024 End: 06-01-2024 Office consultation new/estab patient 80 min Luciana Cisneros MD Work Phone: Geriatrics Comment on above: Mixed dementia (HCC) (Primary Dx); Vascular parkinsonism (HCC) Start: 06-01-2024 End: 06-01-2024 ambulatory LUCIANA CISNEROS Facility:[facility] Start: 06-01-2024 End: 08-01-2024 Follow-up encounter Luciana Cisneros MD Work Phone: Geriatrics Start: 05-26-2024 End: 05-26-2024 Telephone encounter Luciana Cisneros MD Work Phone: Geriatrics Comment on above: Appointment (Resched ule for geriatric f/u) Start: 05-26-2024 End: 05-26-2024 ambulatory [facility] Facility:[facility] Start: 05-26-2024 End: 05-26-2024 Patient encounter procedure Stas Mora MD Work Phone: [facility] [place] Comment on above: Essential hypertensi on, benign (Primary Dx); Hyperlipidemia, unspecified hyperlipidemia type; Atherosclerosis 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, unspecified vessel or lesion type, unspecified whether tetlin or transplanted heart; Paroxysmal atrial fibrillation (HCC); Edema of both lower legs; History of stroke with residual effects; Dementia, unspecified dementia severity, unspecified dementia type, unspecified whether behavioral, psychotic, or mood disturbance or anxiety (HCC) Start: 05-25-2024 End: 05-25-2024 Telephone encounter Paige Hickman [facility] Ambulatory Telemanagement Comment on above: Anticoagulation Tele phone Fu (Lab INR Result ) Start: 05-25-2024 End: 05-25-2024 ambulatory STAS MORA Facility:[facility] Start: 05-23-2024 ambulatory LUCIANA CISNEROS Facility :[id number] Start: 05-23-2024 End: 05-23-2024 Subsequent hospital visit by physician [facility] Work Phone: [facility] Comment on above: Cognitive impairment , mild, 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] Start: 04-28-2024 End: 04-29-2024 Telephone encounter Stas Mora MD Work Phone: [facility] [place] Comment on above: Results Start: 04-27-2024 End: 04-27-2024 Telephone encounter Coretta Jalloh [facility] Ambulatory Telemanagement Comment on above: Anticoagulation Tele phone Fu (Lab INR result ) Start: 04-27-2024 End: 04-27-2024 ambulatory LUCIANA CISNEROS Facility:[facility] Start: 04-27-2024 End: 04-27-2024 Assmt & care planning pt w/cognitive impairment Luciana Cisneros MD Work Phone: Geriatrics Comment on above: Dementia, unspecifie d dementia severity, unspecified dementia type, unspecified whether behavioral, psychotic, or mood disturbance or anxiety (HCC) (Primary Dx); Cognitive impairment; Cognitive impairment, mild, so stated; Shuffling gait; Ambulatory dysfunction; Balance disorder Start: 04-27-2024 End: 04-27-2024 ambulatory LUCIANA CISNEROS Facility:[facility] Start: 04-25-2024 End: 04-25-2024 Telephone encounter Stas Mora MD Work Phone: [facility] [place] Comment on above: memory issues Start: 04-13-2024 End: 04-13-2024 Telephone encounter Coretta Jalloh [facility]ulatory Telemanagement Comment on above: Anticoagulation Tele phone Fu (Home INR result ) Start: 04-13-2024 End: 04-13-2024 ambulatory STAS MORA Facility:[facility] Start: 03-30-2024 End: 03-30-2024 Telephone encounter Coretta Jalloh [facility]ulatory Telemanagement Comment on above: Anticoagulation Tele phone Fu (Lab INR result ) Start: 03-30-2024 End: 03-30-2024 ambulatory [facility] Facility:[facility] Start: 03-17-2024 End: 03-17-2024 Telephone encounter Josy Collins [facility] Comment on above: Anticoagulation Tele phone Fu (Lab INR result ) Start: 03-17-2024 End: 03-17-2024 ambulatory [facility] Facility:[facility] Start: 03-03-2024 End: 03-03-2024 Telephone encounter Elise Paredes [facility] Ambulatory Telemanagement Comment on above: Anticoagulation Tele phone Fu (Lab INR result) Start: 03-03-2024 End: 03-03-2024 ambulatory [facility] Facility:[facility] Start: 02-10-2024 End: 02-10-2024 Telephone encounter Coretta Jalloh [facility]ulatory Telemanagement Comment on above: Anticoagulation Tele phone Fu (Lab INR result ) Start: 02-10-2024 End: 02-10-2024 ambulatory [facility] Facility:[facility] Start: 01-20-2024 End: 01-20-2024 Telephone encounter Coretta Jalloh [facility] Ambulatory Telemanagement Comment on above: Anticoagulation Tele phone Fu (Lab INR results ) Start: 01-20-2024 End: 01-20-2024 ambulatory [facility] Facility:[facility] Start: 01-04-2024 End: 01-04-2024 Telephone encounter Stas Mora MD Work Phone: [facility] Comment on above: Medication Request Start: 12-24-2023 End: 12-24-2023 Telephone encounter Elise Paredes [facility] Ambulatory Telemanagement Comment on above: Anticoagulation Tele phone Fu (Lab INR) Start: 12-23-2023 End: 12-23-2023 ambulatory [facility] Facility:[facility] Start: 12-10-2023 End: 12-10-2023 Telephone encounter Elise Paredes [facility]ulatory Telemanagement Comment on above: Anticoagulation Tele phone Fu (Lab INR) Start: 12-09-2023 End: 12-09-2023 ambulatory STAS MORA Facility:[facility] Start: 11-26-2023 End: 11-26-2023 Telephone encounter Elise Paredes [facility] Ambulatory Telemanagement Comment on above: Anticoagulation Tele phone Fu (Lab INR) Start: 11-26-2023 End: 11-26-2023 Patient encounter procedure Stas Mora MD Work Phone: [facility] [place] Comment on above: Essential hypertensi on, benign (Primary Dx); Hyperlipidemia, unspecified hyperlipidemia type; Edema of both lower legs; Paroxysmal atrial fibrillation (HCC); History of stroke with residual effects; 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, psychotic disturbance, mood disturbance, or anxiety (HCC); Urinary frequency; Abnormal CBC Start: 11-18-2023 End: 11-18-2023 Telephone encounter Coretta Jalloh [facility]ulatory Telemanagement Comment on above: Anticoagulation Tele phone Fu (Home INR) Start: 11-16-2023 End: 11-16-2023 Refill Stas Mora MD Work Phone: [facility] Comment on above: Refill Request Start: 10-14-2023 Telephone encounter Coretta Jalloh [facility] Ambulatory Telemanagement Comment on above: Anticoagulation Tele phone Fu (Home INR results ) Start: 09-16-2023 Telephone encounter Colleen Sommer [facility]ulatory Telemanagement Comment on above: Anticoagulation Tele phone Fu Start: 09-15-2023 End: 09-15-2023 Patient encounter procedure Stas Mora MD Work Phone: [facility] Comment on above: Edema of both lower legs (Primary Dx) Start: 09-14-2023 End: 09-14-2023 ambulatory Nurse Intm/Famp Triage [facility] Work Phone: Nurse Phone [...] encounter procedure Stas Mora MD Work Phone: [facility] Comment on above: Moderate vascular [...] results ) Start: 07-16-2023 Refill Elvis RASHID RN.[facility] Work Phone: [facility] Comment on above: Refill Request [...] encounter Jerzy Easton MD Work Phone: [facility] [place] Comment on above: Anticoagulation Start: 06-11-2023 Telephone encounter Stas miranda MD Work Phone: [facility] [place] Comment on above: Anticoagulation Start: 06-08-2023 Telephone encounter Jenna Armenta nhof SPECIAL EVENTS FUNDRAISER.DATASTAGE CONSULTANT Work Phone: [facility] [place] Comment on above: Erroneous encounter- disregard Anticoagulation Start: 06-05-2023 Telephone encounter Jenna Armenta nhof SPECIAL EVENTS FUNDRAISER.DATASTAGE CONSULTANT Work Phone: [facility] [place] Comment on above: Results (Labs, Criti cleopatra ) Start: 06-04-2023 ambulatory Hortencia Winston RN NURSE O N CALL Comment on above: Results, Lab High Protime and INR Start: 06-04-2023 E-mail encounter fro m caregiver Jasmin Bell MD Work Phone: [facility] Start: 06-04-2023 Telephone encounter Jenna Armenta maof SPECIAL EVENTS FUNDRAISER.DATASTAGE CONSULTANT Work Phone: [facility] [place] Comment on above: Results; Orders (Lab s ) Start: 06-03-2023 Telephone encounter [facility] Comment on above: Anticoagulation Tele phone Fu (Lab INR results ) Start: 06-01-2023 End: 06-01-2023 Patient encounter procedure Stas Mora MD Work Phone: [facility] [place] Comment on above: Essential hypertensi on, benign (Primary Dx); Paroxysmal atrial fibrillation (HCC); Atherosclerosis 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, unspecified vessel or lesion type, unspecified whether tetlin or transplanted heart; Hyperlipidemia, unspecified hyperlipidemia type; [...] results) Start: 05-13-2023 Telephone encounter Senia Phillips [facility] Ambulatory Telemanagement Comment on above: Anticoagulation Tele phone Fu (INR Lab Result) Start: 05-06-2023 Telephone encounter [facility] Comment on above: Anticoagulation Tele phone Fu (Lab INR results ) Start: 04-29-2023 Telephone encounter [facility] Comment on above: Anticoagulation Tele phone Fu (Home INR results ) Start: 02-20-2023 Telephone encounter Elise Paredes [facility] Comment on above: Anticoagulation Tele phone Fu (Lab INR) Start: 02-17-2023 Telephone encounter Stas miranda MD Work Phone: [facility] Comment on above: Results Start: 02-17-2023 End: 02-17-2023 Subsequent hospital visit by physician [facility] (I-Stat/1.5t) Work Phone: Radiology Comment on above: Cerebral infarction, unspecified mechanism (HCC) [I63.9] Start: 02-16-2023 End: 02-16-2023 Patient encounter procedure Stas Mora MD Work Phone: [facility] Comment on above: Cerebral infarction, unspecified mechanism (HCC) (Primary Dx); Generalized weakness; Speech disturbance, unspecified type; Hyperlipidemia, unspecified hyperlipidemia type; Essential hypertension, benign; Paroxysmal atrial fibrillation (HCC) Start: 02-13-2023 Telephone encounter Elise Paredes [facility] Telemanagement Comment on above: Anticoagulation Tele phone Fu (Lab INR) Start: 02-10-2023 End: 02-10-2023 Emergency department patient visit [facility] Work Phone: Start: 02-06-2023 Telephone encounter Senia Phillips [facility] Ambulatory Telemanagement Comment on above: Anticoagulation Tele phone Fu (INR Lab Result) Start: 01-19-2023 Telephone encounter [facility] Comment on above: Anticoagulation Tele phone Fu Start: 01-16-2023 Orders Only Stas newman MD Work Phone: [facility] Comment on above: 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 current us e of anticoagulant (Primary Dx); [...] Emergency department patient visit STERLING LYNCH DO [facility] Start: 11-07-2022 Telephone encounter Senia Cross [...] Result) Start: 10-17-2022 Telephone encounter Yomi Elma [facility] Ambulatory Telemanagement Comment on above: [...] encounter procedure Stas Mora MD Work Phone: [facility] [place] Comment on above: Encounter for Medica re [...] Result) Start: 07-04-2022 Telephone encounter Lety Gandara [facility] Comment on above: Anticoagulation Tele phone Fu (Lab INR result ) Start: 06-23-2022 Refill Elvis RASHID RN.DATASTAGE CONSULTANT Work Phone: [facility] Comment on above: Refill Request Start: 06-20-2022 Telephone encounter Senia Cross [facility] Ambulatory Telemanagement Comment on above: Anticoagulation Tele phone Fu (INR Lab Result) Start: 06-06-2022 Telephone encounter Senia Cross [facility] Ambulatory Telemanagement Comment on above: Anticoagulation Tele phone Fu (INR Lab Result) Start: 05-30-2022 Telephone encounter Stas miranda MD Work Phone: [facility] Comment on above: Opened In Error Start: 05-22-2022 Telephone encounter Jenna Armenta nhof SPECIAL EVENTS FUNDRAISER.DATASTAGE CONSULTANT Work Phone: [facility] Comment on above: Results (X-ray hip) Start: 05-21-2022 End: 05-21-2022 Subsequent hospital visit by physician Jaymie [facility] [place] Work Phone: Radiology Comment on above: Left hip pain [M25.5 52] Start: 05-21-2022 ambulatory Fani Grace RN NURSE O N CALL Comment on above: Fall Fall; Hip Pain Start: 05-19-2022 Telephone encounter tSas miranda MD Work Phone: [facility] Comment on above: Anticoagulation Start: [...] Result) Start: 04-04-2022 Telephone encounter Elise Paredes [facility] Comment on above: Anticoagulation Tele phone Fu (Lab INR) Start: 03-31-2022 Telephone encounter Stas miranda MD Work Phone: [facility] [place] Comment on above: Release Of Medical R ecords ([place] PCP) Start: 03-21-2022 Telephone encounter Carmelina Barnesuett [facility] Comment on above: Anticoagulation Tele phone Fu Start: 02-21-2022 Telephone encounter Kristian Ferguson MD Work Phone: [facility] [place] Comment on above: Anticoagulation Start: 02-10-2022 Telephone encounter Stas miranda MD Work Phone: [facility] [place] Comment on above: Opened In Error Start: 01-27-2022 Telephone encounter [facility] Comment on above: Anticoagulation Tele phone Fu (Lab INR Result) Start: 01-20-2022 Telephone encounter [facility] Comment on above: Anticoagulation Tele phone Fu (Lab INR Result) Start: 01-17-2022 Telephone encounter Stas miranda MD Work Phone: [facility] [place] Comment on above: Anticoagulation; Cri tical Results (INR) Start: 01-13-2022 Refill Stas newman MD Work Phone: [facility] [place] Comment on above: Refill Request; Refi ll Request Start: 01-03-2022 Telephone encounter Senia Alan [facility] Ambulatory Telemanagement Comment on above: Anticoagulation Tele phone Fu (INR Home Test Result) Start: 01-02-2022 Telephone encounter Stas miranda MD Work Phone: [facility] [place] Comment on above: Results Start: 12-26-2021 End: 12-26-2021 Patient encounter procedure Stas Mora MD Work Phone: [facility] [place] Comment on above: Hospital discharge f ollow-up (Primary Dx); Encounter for immunization; TIA (transient ischemic attack); Thyroid nodule; Essential hypertension, benign; Paroxysmal atrial fibrillation (HCC); Atherosclerosis 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, unspecified vessel or lesion type, unspecified whether tetlin or transplanted heart Start: 12-22-2021 Non-patient / Non-visit Dr. Maria E Mora Work Phone: [facility] Start: 12-21-2021 Non-patient / Non-visit Dr. Maria E Mora Work Phone: [facility] Start: 12-21-2021 End: 12-22-2021 Evaluation and management of inpatient [facility] Start: 12-21-2021 End: 12-22-[address] Stas Mora Work Phone: [facility] Work Phone: Start: 12-20-2021 Telephone encounter Stsa miranda MD Work Phone: [facility] Comment on above: Opened In Error Anticoagulation Tele phone Fu (INR Lab Result) Start: 12-06-2021 Telephone encounter Senia Phillips [facility] Ambulatory Telemanagement Comment on above: Anticoagulation Tele phone Fu (INR Lab Result) Start: 11-22-2021 Telephone encounter Janice Huang [facility] Ambulatory Telemanagement Comment on above: Anticoagulation Tele phone Fu (INR) Start: 11-08-2021 Telephone encounter Stas miranda MD Work Phone: [facility] Comment on above: Opened In Error Anticoagulation Tele phone Fu (INR Lab Result) Start: 10-25-2021 Telephone encounter Janice Huang [facility] Ambulatory Telemanagement Comment on above: Anticoagulation Tele phone Fu (lab INR ) Start: 09-27-2021 Telephone encounter Yomi Wills [facility] Ambulatory Telemanagement Comment on above: Anticoagulation Tele phone Fu (Lab INR Result) Start: 09-13-2021 Orders Only Stas newman MD Work Phone: [facility] Comment on above: 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 current us e of anticoagulant (Primary Dx); Encounter for monitoring Coumadin therapy Anticoagulation Tele phone Fu (INR Lab Result) Start: 09-05-2021 End: 09-05-2021 Patient encounter procedure Stas Mora MD Work Phone: [facility] [place] Comment on above: Encounter for Medica re annual wellness exam (Primary Dx); Paroxysmal atrial fibrillation (HCC); Essential hypertension, benign Start: 08-30-2021 Telephone encounter Jenna Armenta nhof SPECIAL EVENTS FUNDRAISER.DATASTAGE CONSULTANT Work Phone: [facility] [place] Comment on above: Orders (INR ) Anticoagulation Tele phone Fu (INR Lab Result) Start: 08-16-2021 Orders Only Stas newmna MD Work Phone: [facility] [place] Comment on above: Anticoagulation Start: 08-02-2021 Telephone encounter Senia Alan [facility] Ambulatory Telemanagement Comment on above: Anticoagulation Tele phone Fu (INR Lab Result) Start: 07-16-2021 Telephone encounter Stas miranda MD Work Phone: [facility] [place] Comment on above: Results Start: 07-13-2021 Refill Elvis RASHID RN.DATASTAGE CONSULTANT Work Phone: Family [facility] [place] Comment on above: Refill Request Start: 07-08-2021 End: 07-08-2021 Patient encounter procedure Stas Mora MD Work Phone: [facility] [place] Comment on above: Essential hypertensi on, benign (Primary Dx); Atherosclerosis 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, unspecified vessel or lesion type, unspecified whether tetlin or transplanted heart; Paroxysmal atrial fibrillation (HCC); Primary osteoarthritis of both knees Start: 07-03-2021 Telephone encounter Stas miranda MD Work Phone: Family [facility] [place] Comment on above: Anticoagulation Tele phone Fu (Lab INR result) Start: 06-12-2021 Telephone encounter Stas miranda MD Work Phone: Family [facility] [place] Comment on above: Anticoagulation (Lab INR result) Start: 03-12-2020 End: 03-12-2020 Subsequent hospital visit by physician Jaymie [facility] [place] Work Phone: Radiology Comment on above: Acute right-sided lo w back pain, unspecified whether sciatica present [M54.5] Start: 02-02-2018 Ambulatory DARRELL OLIVEIRA Facility :[facility] Start: 06-02-2017 End: 06-02-2017 Ambulatory DARRELL OLIVEIRA [facility] Procedures Date Procedure Procedure Detail Performing [...] Adult depression scr eening assessment Coretta Jalloh [facility] Start: 02-17-2023 Mri brain brain stem w/o contrast material Stas Mora MD Work Phone: Start: 02-10-2023 Plain chest X-ray Start: 02-10-2023 SARS-CoV-2 & FLU Ant igen (Rapid) Start: 05-21-2022 Radex hip unilateral with pelvis 2-3 views Jenna Fitzpatrick APRN.DATASTAGE CONSULTANT Work Phone: Start: 05-19-2022 PROTHROMBIN TIME/PT [facility] [...] Detail Author Start: 02-27-2031 Urine microalbumin profile [facility] Start: 05-26-2027 Diabetes Screening Diabetes Screenin [facility] Start: 06-02-2026 Diabetes Screening Diabetes Screenin [facility] Start: 08-15-2025 DIABETES SCREEN DIABETES SCREEN [facility] Start: 08-15-2025 Diabetes Screening Diabetes Screenin [facility] Start: 05-25-2025 Hepatitis B surface antibody level LDL Cholesterol [facility] Start: 03-30-2025 End: 03-30-2025 Patient encounter procedure 03/30/2025 11:00 AM EST Office Visit Geriatrics [address] [place] [address] Luciana Cisneros MD [address] [place] [id number] follow up 6 months Geriatrics Comment on above: follow up 6 months Start: 02-21-2025 DIABETES SCREEN DIABETES SCREEN [facility] Start: 12-06-2024 DIABETES SCREEN DIABETES SCREEN [facility] Start: 12-05-2024 End: 12-05-2024 Patient encounter procedure 12/05/2024 12:40 PM EDT Office Visit [facility] [place] [address] [place] [address] Stas Mora MD [address] [place] [address] reschedule from 12/01 [facility] [place] Comment on above: reschedule from 12/01 Start: 12-01-2024 End: 12-01-2024 Patient encounter procedure 12/01/2024 9:40 AM EDT Office Visit [facility] [place] [address] [place] [address] Stas Mora MD [address] [facility] [place] [address] 6 mo f/u [facility] [place] Comment on above: 6 mo f/u Start: 11-26-2024 End: 02-25-2025 CBC W Auto Differential panel - Blood COMPLETE BLOOD COUNT AND DIFFERENTIAL Lab Routine Essential hypertension, benign Expected: 11/26/2024 (Approximate), Expires: 02/25/2025 [facility] Comment on above: Expected: 11/26/2024 (Approximate), Expires: 02/25/2025 Start: 11-26-2024 End: 02-25-2025 Comprehensive metabolic 2000 panel - Serum or Plasma COMPREHENSIVE METABOLIC PANEL Lab Routine Essential hypertension, benign Hyperlipidemia, unspecified hyperlipidemia type Expected: 11/26/2024 (Approximate), Expires: 02/25/2025 [facility] Work Phone: Comment on above: Expected: 11/26/2024 (Approximate), Expires: 02/25/2025 Start: 11-26-2024 End: 02-25-2025 Lipid 1996 panel - Serum or Plasma LIPID PANEL BASIC Lab Routine Essential hypertension, benign Hyperlipidemia, unspecified hyperlipidemia type Expected: 11/26/2024 (Approximate), Expires: 02/25/2025 [facility] Comment on above: Expected: 11/26/2024 (Approximate), Expires: 02/25/2025 Start: 11-25-2024 RSV Vaccine (1 - 1-d ose 60+ series) RSV Vaccine (1 - 1-dose 60+ series) [facility] Comment on above: Postponed from 08/12 (Declined at this time) Start: 11-25-2024 RSV Vaccine (1 - 1-d ose 75+ series) RSV Vaccine (1 - 1-dose 75+ series) [facility] Comment on above: Postponed from 08/12 (Declined at this time) Start: 11-23-2024 [facility] Start: 11-21-2024 Influenza vaccination Influenza Vacc ine (#1) [facility] Start: 09-06-2024 Patient discharge [facility] Start: 09-02-2024 Admission procedure [facility] Start: 09-01-2024 End: 09-02-2024 [facility] Start: 09-01-2024 Blood culture Blood Culture [facility] Start: 09-01-2024 Application of intermittent pneumatic compression device [facility] Start: 09-01-2024 Fall prevention [facility] Start: 09-01-2024 Oxygen therapy [facility] Start: 09-01-2024 Provision of activit y privileges [facility] Start: 09-01-2024 Assessment of risk o f venous thromboembolism [facility] Start: 09-01-2024 Insertion of cathete r into peripheral vein [facility] Start: 09-01-2024 Providing care accor ding to standard [facility] Start: 09-01-2024 Referral to occupati onal therapist [facility] Start: 09-01-2024 Referral to service [facility] Start: 09-01-2024 [facility] Start: 09-01-2024 Following clinical pathway protocol [facility] Start: 09-01-2024 Admission procedure [facility] Start: 09-01-2024 Hospital admission, emergency, from emergency room, medical nature [facility] Start: 08-31-2024 End: 08-31-2024 Patient encounter procedure 08/31/2024 11:00 AM EDT Office Visit Geriatrics [address] [place] [address] Luciana Cisneros MD [address] [place], [place] [id number] 3 month f/u Geriatrics Comment on above: 3 month f/u Start: 2024 Anxiety Screening Anxiety Screening [facility] Start: 2024 Depression Screening Depression Scre ening [facility] Start: 07-08-2024 DIABETES SCREEN DIABETES SCREEN [facility] Start: 06-02-2024 Hepatitis B surface antibody level LDL Cholesterol [facility] Start: 06-01-2024 End: 06-01-2024 Patient encounter procedure 06/01/2024 3:00 PM EDT Office Visit Geriatrics [address] [facility] [place] [place] [address] Luciana Cisneros MD [address] [facility] [place], [place] [id number] Follow up visit for MRI [facility]iatrics Comment on above: Follow up visit for MRI Start: 06-01-2024 Covid-19 Vaccine () Covid-19 Vaccine () [facility] Start: 05-30-2024 End: 05-30-2024 Patient encounter procedure 05/30/2024 11:20 AM EDT Office Visit [facility] [place] [address] [place] [address] Luciana Cisneros MD [address] [facility] [place] [place] [address] Follow up visit for MRI [facility] [place] Comment on above: Follow up visit for MRI Start: 05-26-2024 End: 05-26-2024 Patient encounter procedure 05/26/2024 9:20 AM EST Office Visit [facility] [place] [address] [place] [address] Stas Mora MD [address] [facility] [place], [place] [id number] 6 mo f/u [facility] [place] Comment on above: 6 mo f/u Start: 05-25-2024 End: 08-24-2024 CBC W Auto Differential panel - Blood COMPLETE BLOOD COUNT AND DIFFERENTIAL Lab Routine Abnormal CBC Expected: 05/25/2024 (Approximate), Expires: 08/24/2024 [facility] Comment on above: Expected: 05/25/2024 (Approximate), Expires: 08/24/2024 Start: 05-25-2024 End: 08-24-2024 Comprehensive metabolic 2000 panel - Serum or Plasma COMPREHENSIVE METABOLIC PANEL Lab Routine Essential hypertension, benign Hyperlipidemia, unspecified hyperlipidemia type Expected: 05/25/2024 (Approximate), Expires: 08/24/2024 [facility] Work Phone: Comment on above: Expected: 05/25/2024 (Approximate), Expires: 08/24/2024 Start: 05-25-2024 End: 08-24-2024 Lipid 1996 panel - Serum or Plasma LIPID PANEL BASIC Lab Routine Essential hypertension, benign Hyperlipidemia, unspecified hyperlipidemia type Expected: 05/25/2024 (Approximate), Expires: 08/24/2024 [facility] Comment on above: Expected: 05/25/2024 (Approximate), Expires: 08/24/2024 Start: 05-25-2024 End: 05-25-2024 ambulatory 05/25/2024 8:30 AM EST Results Only [facility] [address] [place] [address] 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] [facility] Comment on above: Cognitive impairment , mild, 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] Start: 04-29-2024 End: 04-29-2024 Patient encounter procedure 04/29/2024 3:40 PM EST Office Visit [facility] [place] [address] [place] [address] Stas Mora MD [address] [place] [address] memory issues,See TE [facility] [place] Comment on above: memory issues,See TE Start: 04-27-2024 End: 04-27-2024 Patient encounter procedure 04/27/2024 9:30 AM EST Office Visit Geriatrics [address] [facility] [place] [place] [address] Luciana Cisneros MD [address] [place] [address] Dementia, unspecified dementia severity, unspecified dementia type, unspecified whether behavioral, psychotic, or mood disturbance or anxiety (HCC) [F03.90] Geriatrics Comment on above: Dementia, unspecifie d dementia severity, unspecified dementia type, unspecified whether behavioral, psychotic, or mood disturbance or anxiety (HCC) [F03.90] Start: 03-23-2024 Advance Directive Discussion Advance Directive Discussion [facility] Start: 03-23-2024 Medicare Advantage A nnual Wellness Visit Medicare Advantage Annual Wellness Visit [facility] Start: 03-13-2024 DIABETES SCREEN DIABETES SCREEN [facility] Start: 11-26-2023 End: 11-26-2023 Patient encounter procedure [facility] [place] Comment on above: 6 month follow up 6 month follow up, jessica bashir, on aricept x 3 months Start: 11-22-2023 Covid-19 Vaccine ( season) Covid-19 Vaccine ( season) [facility] Start: 11-22-2023 Influenza vaccination Influenza Vacc ine (#1) [facility] Start: 09-15-2023 End: 09-15-2023 Patient encounter procedure 09/15/2023 8:40 AM EDT Office Visit Family [place] [address] [place] [address] Stas Mora MD [address] [facility] [place] [address] leg swelling- both legs--See triage 09/14/2023. [facility] [place] Comment on above: leg swelling- both l egs--See triage 09/14/2023. Start: 08-16-2023 Hepatitis B surface antibody level LDL CHOLESTEROL [facility] Start: 08-14-2023 End: 08-14-2023 Patient encounter procedure 08/14/2023 10:00 AM EDT Office Visit [facility] [place] [address] [place] [address] Stas Mora MD [address] [facility] [place] [id number] Memory Issues [facility] [place] Comment on above: Memory Issues Start: 06-04-2023 End: 09-03-2023 Ferritin [Mass/volume] in Serum or Plasma [facility] Work Phone: Comment on above: Expected: 06/04/2023 , Expires: 09/03/2023 Start: 06-04-2023 End: 09-03-2023 Iron and Iron binding capacity panel - Serum or Plasma [facility] Work Phone: Comment on above: Expected: 06/04/2023 , Expires: 09/03/2023 Start: 06-01-2023 End: 08-31-2023 CBC panel - Blood by Automated count CBC Lab Routine Paroxysmal atrial fibrillation (HCC) Essential hypertension, benign Expected: 06/01/2023 (Approximate), Expires: 08/31/2023 [facility] Work Phone: Comment on above: Expected: 06/01/2023 (Approximate), Expires: 08/31/2023 Start: 06-01-2023 End: 08-31-2023 Comprehensive metabolic 2000 panel - Serum or Plasma COMP METABOLIC PANEL Lab Routine Paroxysmal atrial fibrillation (HCC) Essential hypertension, benign Hyperlipidemia, unspecified hyperlipidemia type Expected: 06/01/2023 (Approximate), Expires: 08/31/2023 [facility] Work Phone: Comment on above: Expected: 06/01/2023 (Approximate), Expires: 08/31/2023 Start: 06-01-2023 End: 08-31-2023 Lipid 1996 panel - Serum or Plasma LIPID PANEL BASIC Lab Routine Paroxysmal atrial fibrillation (HCC) Essential hypertension, benign Hyperlipidemia, unspecified hyperlipidemia type Expected: 06/01/2023 (Approximate), Expires: 08/31/2023 [facility] Work Phone: Comment on above: Expected: 06/01/2023 (Approximate), Expires: 08/31/2023 Start: 05-13-2023 Covid-19 Vaccine () Covid-19 Vaccine () [facility] Start: 03-23-2023 Advance Directive Discussion Advance Directive Discussion [facility] Start: 03-23-2023 Behavioral Health Screening Behavioral Health Screening [facility] Start: 03-23-2023 [facility] Start: 02-21-2023 Hepatitis B surface antibody level LDL CHOLESTEROL [facility] Start: 02-10-2023 [facility] Start: 12-06-2022 Hepatitis B surface antibody level LDL CHOLESTEROL [facility] Start: 11-21-2022 Covid-19 Vaccine () Covid-19 Vaccine () [facility] Start: 11-21-2022 Influenza vaccination [facility] Start: 09-05-2022 PNEUMOCOCCAL: 65+ (2 - PCV) PNEUMOCOCCAL: 65+ (2 - PCV) [facility] Comment on above: Postponed from 02/21 (Declined at this time) Start: 07-08-2022 Hepatitis B surface antibody level LDL CHOLESTEROL [facility] Start: 04-26-2022 COVID-19 VACCINE (6 - Pfizer series) COVID-19 VACCINE (6 - Pfizer series) [facility] Start: 03-23-2022 ADVANCE DIRECTIVE DISCUSSION ADVANCE DIRECTIVE DISCUSSION [facility] Start: 03-23-2022 DEPRESSION ASSESSMENT DEPRESSION ASS ESSMENT [facility] Start: 03-13-2022 Hepatitis B surface antibody level LDL CHOLESTEROL [facility] Start: 03-10-2022 End: 05-10-2022 CBC panel - Blood by Automated count CBC Lab Routine TIA (transient ischemic attack) Essential hypertension, benign Atherosclerosis 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, unspecified vessel or lesion type, unspecified whether tetlin or transplanted heart Expected: 03/10/2022 (Approximate), Expires: 05/10/2022 [facility] Work Phone: Comment on above: Expected: 03/10/2022 (Approximate), Expires: 05/10/2022 Start: 03-10-2022 End: 05-10-2022 Comprehensive metabolic 2000 panel - Serum or Plasma COMP METABOLIC PANEL Lab Routine TIA (transient ischemic attack) Essential hypertension, benign Atherosclerosis 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, unspecified vessel or lesion type, unspecified whether tetlin or transplanted heart Expected: 03/10/2022 (Approximate), Expires: 05/10/2022 [facility] Work Phone: Comment on above: Expected: 03/10/2022 (Approximate), Expires: 05/10/2022 Start: 03-10-2022 End: 05-10-2022 Lipid 1996 panel - Serum or Plasma LIPID PANEL BASIC Lab Routine TIA (transient ischemic attack) Essential hypertension, benign Atherosclerosis 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, unspecified vessel or lesion type, unspecified whether tetlin or transplanted heart Expected: 03/10/2022 (Approximate), Expires: 05/10/2022 [facility] Work Phone: Comment on above: Expected: 03/10/2022 (Approximate), Expires: 05/10/2022 Start: 01-03-2022 End: 03-05-2022 Comprehensive metabolic 2000 panel - Serum or Plasma COMP METABOLIC PANEL Lab Routine Atherosclerosis 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, unspecified vessel or lesion type, unspecified whether tetlin or transplanted heart Essential hypertension, benign Expected: 01/03/2022 (Approximate), Expires: 03/05/2022 [facility] Work Phone: Comment on above: Expected: 01/03/2022 (Approximate), Expires: 03/05/2022 Start: 01-03-2022 End: 03-05-2022 LIPID PANEL BASIC LIPID PANEL BASIC Lab Routine Atherosclerosis 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, unspecified vessel or lesion type, unspecified whether tetlin or transplanted heart Essential hypertension, benign Expected: 01/03/2022 (Approximate), Expires: 03/05/2022 [facility] Work Phone: Comment on above: Expected: 01/03/2022 (Approximate), Expires: 03/05/2022 Start: 12-24-2021 Prothrombin time [facility] Work Phone: Start: 12-23-2021 Prothrombin time [facility] Work Phone: Start: 12-22-2021 Patient discharge [facility] Work Phone: Start: 12-21-2021 Assessment of risk o f venous thromboembolism [facility] Work Phone: Start: 12-21-2021 Cardiac monitoring [facility] Work Phone: Start: 12-21-2021 Catheterization of vein [facility] Work Phone: Start: 12-21-2021 Continuous pulse oximetry [facility] Work Phone: Start: 12-21-2021 Elevation of head of bed [facility] Work Phone: Start: 12-21-2021 Exercises [facility] Work Phone: Start: 12-21-[address] anned interventions [facility] Work Phone: Start: 12-21-2021 Insertion of cathete r into peripheral vein [facility] Work Phone: Start: 12-21-2021 Measuring intake and output [facility] Work Phone: Start: 12-21-2021 Notification of physician [facility] Work Phone: Start: 12-21-2021 Oxygen therapy [facility] Work Phone: Start: 12-21-2021 Providing care accor ding to standard [facility] Work Phone: Start: 12-21-2021 Provision of activit y privileges [facility] Work Phone: Start: 12-21-2021 Referral to occupati onal therapist [facility] Work Phone: Start: 12-21-2021 Referral to service [facility] Work Phone: Start: 12-21-2021 Tobacco use cessatio n education [facility] Work Phone: Start: 12-21-2021 US scan of thyroid Thyroid [facility] Work Phone: Start: 12-21-2021 [facility] Work Phone: Start: 12-21-2021 End: 12-21-2021 Following clinical pathway protocol [facility] Work Phone: Start: 12-21-2021 Verification routine [facility] Work Phone: Start: 12-21-2021 [facility] Start: 12-21-2021 CT of head without contrast STROKE Brain/Head without Cont [facility] Work Phone: Start: 12-21-2021 CT Unspecified body region WO contrast [facility] Work Phone: Start: 12-21-2021 Oxygen therapy [facility] Work Phone: Start: 12-21-2021 End: 12-22-2021 [facility] Work Phone: Start: 11-21-2021 Influenza vaccination INFLUENZA (#1) [facility] Start: 09-24-2021 COVID-19 VACCINE (5 - Booster for Pfizer series) COVID-19 VACCINE (5 - Booster for Pfizer series) [facility] Start: 08-30-2021 End: 10-30-2021 PT panel - Platelet poor plasma by Coagulation assay [facility] Work Phone: Comment on above: Expected: 08/30/2021 , Expires: 10/30/2021 Start: 07-08-2021 End: 09-07-2021 Comprehensive metabolic 2000 panel - Serum or Plasma [facility] Work Phone: Comment on above: Expected: 07/08/2021 (Approximate), Expires: 09/07/2021 Start: 07-08-2021 End: 09-07-2021 LIPID PANEL BASIC [facility] Work Phone: Comment on above: Expected: 07/08/2021 (Approximate), Expires: 09/07/2021 Start: 04-27-2021 COVID-19 VACCINE (4 - Booster for Pfizer series) COVID-19 VACCINE (4 - Booster for Pfizer series) [facility] Start: 03-23-2021 ADVANCE DIRECTIVE DISCUSSION ADVANCE DIRECTIVE DISCUSSION [facility] Start: 03-23-2021 DEPRESSION ASSESSMENT DEPRESSION ASS ESSMENT [facility] Start: 02-21-2009 Pneumococcal Vaccine : 65+ (2 - PCV) Pneumococcal Vaccine: 65+ (2 - PCV) [facility] Start: 02-21-2009 PNEUMOCOCCAL: 65+ (2 - PCV) PNEUMOCOCCAL: 65+ (2 - PCV) [facility] Start: 02-23-2008 Urine microalbumin profile DTAP,TDAP,TD (1 - Tdap) [facility] Start: 1995 RSV Vaccine (1 - 1-d ose 60+ series) RSV Vaccine (1 - 1-dose 60+ series) [facility] Start: 08-12-1985 SHINGRIX VACCINE (1 of 2) VALDES GRIX VACCINE (1 of 2) [facility] Anion gap in Serum o r Plasma [facility] BUN/Creatinine ratio [facility] Calcium [Mass/volume ] in Serum or Plasma [facility] Carbon dioxide, tota l [Moles/volume] in Central venous blood [facility] Creatinine [Mass/vol ume] in Serum or Plasma [facility] Glucose [Mass/volume ] in Serum or Plasma [facility] Hemoglobin.gastroint estin al.lower [Presence] in Stool by Immunoassay FECAL OCCULT BLOOD TEST Lab Routine Abnormal CBC 06/04/2023 2:13 PM EDT [facility] Work Phone: INR in Blood by Coagulation assay [facility] Measurement of renal function [facility] End: 05-27-2025 MR Brain WO contrast MRI BRAIN W QUANT WO IVCON Radiology Routine Cognitive impairment, mild, so stated 1 Occurrences starting 04/27/2024 until 05/27/2025 [facility] Work Phone: Comment on above: 1 Occurrences starti ng 04/27/2024 until 05/27/2025 End: 05-27-2025 MR Unspecified body region 3D post processing MRI 3D BRAIN QUANT Radiology Routine Cognitive impairment, mild, so stated 1 Occurrences starting 04/27/2024 until 05/27/2025 [facility] Comment on above: 1 Occurrences starti ng 04/27/2024 until 05/27/2025 End: 03-17-2024 Mri brain brain stem w/o contrast material MRI BRAIN WO IVCON Radiology STAT Cerebral infarction, unspecified mechanism (HCC) 1 Occurrences starting 02/16/2023 until 03/17/2024 [facility] Work Phone: Comment on above: 1 Occurrences starti ng 02/16/2023 until 03/17/2024 Mri brain brain stem w/o contrast material MRI BRAIN WO IVCON Radiology STAT Cerebral infarction, unspecified mechanism (HCC) 02/17/2023 8:13 AM EST [facility] Work Phone: Patient Education ED Weakness (U ncertain Cause) [facility] Work Phone: Patient referral [facility] Work Phone: Potassium measurement [facility] Prothrombin time [facility] End: 09-13-2022 PT panel - Platelet poor plasma by Coagulation assay PROTHROMBIN TIME/PT Lab Routine 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 current use of anticoagulant Encounter for monitoring Coumadin therapy Once per week for 99 Occurrences starting 09/13/2021 until 09/13/2022 [facility] Work Phone: Comment on above: Once per week for 99 Occurrences starting 09/13/2021 until 09/13/2022 PT panel - Platelet poor plasma by Coagulation assay PROTHROMBIN TIME/PT Lab Routine prison current use of anticoagulant Encounter for monitoring Coumadin therapy 09/13/2021 8:42 AM EDT [facility] [facility] Work Phone: End: 01-16-2024 PT panel - Platelet poor plasma by Coagulation assay PROTHROMBIN TIME/PT Lab Routine 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 current use of anticoagulant Paroxysmal atrial fibrillation (HCC) Once per week for 99 Occurrences starting 01/16/2023 until 01/16/2024 [facility] Work Phone: Comment on above: Once per week for 99 Occurrences starting 01/16/2023 until 01/16/2024 End: 12-23-2024 PT panel - Platelet poor plasma by Coagulation assay PROTHROMBIN TIME Lab STAT 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 current use of anticoagulant 24 Occurrences starting 12/24/2023 until 12/23/2024 [facility] Work Phone: Comment on above: 24 Occurrences start ing 12/24/2023 until 12/23/2024 Serum chloride measurement [facility] Sodium measurement [facility] Urea nitrogen [Mass/volume] in Serum or Plasma [facility] End: 01-25-2023 Us soft tissue head & neck real time imge docm US THYROID/PARATHYROID Radiology Routine Thyroid nodule 1 Occurrences starting 12/26/2021 until 01/25/2023 [facility] Work Phone: Comment on above: 1 Occurrences starti ng 12/26/2021 until 01/25/2023 [facility] Immunizations Immunization Date Immunization Notes Care Provider Fa sam 12-03-2023 influenza virus vacc ine, unspecified formulation Stas Mora MD Work Phone: [facility] 01-10-2023 influenza (HD-IIV4) vaccine, age 65+ yr, high dose, quadrivalent, PF (FLUZONE HIGH-DOSE) [facility] 01-10-2023 influenza virus vacc ine, unspecified formulation [facility] 12-26-2021 influenza, high-dose , quadrivalent vaccine (FLUZONE HIGH DOSE QUADRIVALENT) Stas Mora MD Work Phone: [facility] 12-26-2021 influenza virus vacc ine, unspecified formulation Senia [facility] 02-27-2021 tetanus toxoid, redu natividad diphtheria toxoid, and acellular pertussis vaccine, adsorbed Stas Mora MD Work Phone: [facility] 02-27-2021 zoster vaccine recombinant Stas Mora MD Work Phone: [facility] 12-25-2020 Covid (Pfizer) Dr. Stas gonzales Work Phone: [facility] 12-10-2020 influenza (HD-IIV4) vaccine, age 65+ yr, high dose, quadrivalent, PF (FLUZONE HIGH-DOSE) Coretta [facility] 12-10-2020 influenza, high dose seasonal, preservative-free Stas Mora MD Work Phone: [facility] 09-17-2020 zoster vaccine recombinant Stas Mora MD Work Phone: [facility] 05-09-2020 Covid (Pfizer) Dr. Stas gonzales Work Phone: [facility] 04-18-2020 Covid (Pfizer) Dr. Stas gonzales Work Phone: [facility] 12-24-2016 influenza, high dose seasonal, preservative-free Stas Mora MD Work Phone: [facility] 12-22-2015 Influenza virus vaccine [facility] 12-22-2015 influenza, seasonal, injectable, preservative free Stas Mora MD Work Phone: [facility] Work Phone: 01-30-2014 influenza, high dose seasonal, preservative-free Stas Mora MD Work Phone: [facility] Work Phone: 01-24-2013 influenza virus vacc ine, unspecified formulation Stas Mora MD Work Phone: [facility] 02-22-2008 pneumococcal polysaccharide vaccine, 23 valent Stas Mora MD Work Phone: [facility] Work Phone: 02-22-2008 tetanus and diphther ia toxoids, adsorbed, preservative free, for adult use (2 Lf of tetanus toxoid and 2 Lf of diphtheria toxoid) Stas Mora MD Work Phone: [facility] Work Phone: Payers Date Payer Category Payer Self-pay [id number] 2022 Unknown [id number] 2016 Medicare [employer] [place] [id number] 2016-Present [phone] [address] [place] [address] O [id number] 2016 Medicare [place] [id number] 2016-Present [phone] [address] [place] [address] [facility] [id number] 2016 [place] [id number] 2016 Medicare [id number] 1935 Unknown [id number] .1.503864.3.579. 2.627 1935 Unknown [id number] .1.287719.3.579. 2.627 Unknown [place] AUTH REQUIR ED SEE NOTE [id number] Unknown [place] AUTH REQUIR ED SEE NOTE . [id number] Unknown [id number] 20.1.242575.3.579. 2.462 Unknown [id number] .1.622181.3.579. 2.462 Unknown [id number] 2.16.840.1.750917.3.579. 2.462 Unknown [id number] 2.16.840.1.943418.3.579. 2.462 Unknown [id number] 2.16.840.1.189716.3.579. 2.462 Unknown [id number] 2.16.840.1.503368.3.579. 2.462 Unknown [id number] 2.16.840.1.214946.3.579. 2.462 Unknown [id number] 2.16.840.1.157473.3.579. 2.462 Unknown [id number] 2.840.1.773835.3.579. 2.462 Unknown [id number] 2.16.840.1.358175.3.579. 2.462 Unknown [id number] 2.840.1.536815.3.579. 2.462 Unknown [id number] 2.16840.1.456558.3.579. 2.462 Unknown [id number] 2.840.1.260375.3.579. 2.462 Unknown [id number] 2.16.840.1.762426.3.579. 2.462 Unknown [id number] 2.16840.1.945709.3.579. 2.462 Unknown [id number] 2.16840.1.929838.3.579. 2.462 Unknown [id number] 2.16840.1.053061.3.579. 2.462 Unknown [id number] 2.16.840.1.898181.3.579. 2.462 Unknown [id number] 2.16.840.1.467070.3.579. 2.462 Unknown [id number] 2.16.840.1.926988.3.579. 2.462 Unknown [id number] 2.16840.1.388753.3.579. 2.462 Unknown [id number] 2.16.840.1.154227.3.579. 2.462 Unknown [id number] 2.16.840.1.370886.3.579. 2.462 Unknown [id number] 2.16.840.1.630714.3.579. 2.462 Unknown [id number] 2.16.840.1.426217.3.579. 2.462 Unknown [id number] 2.16.840.1.497280.3.579. 2.462 Unknown [id number] 2.16.840.1.221914.3.579. 2.462 Unknown [id number] 2.16.840.1.920591.3.579. 2.462 Unknown [id number] 2.16840.1.246816.3.579. 2.462 Unknown [id number] 2.840.1.627280.3.579. 2.462 Social History Date Type Detail Facility Start: 05-04-2017 End: 09-01-2024 Tobacco smoking status NHIS Ex-smoker [facility] Start: 02-15-2021 End: 07-28-2024 Alcohol intake Current non-drinker of alcohol (finding) [facility] Start: 08-26-2020 End: 08-29-2021 History SDOH Alcohol Frequency 2 [facility] Start: 08-26-2020 End: 08-29-2021 History SDOH Alcohol Std Drinks 1 [facility] Start: 08-26-2020 End: 08-29-2021 History SDOH Social Connections Catholic 3 [facility] Start: 08-26-2020 End: 08-29-2021 History SDOH Social Connections Living 5 [facility] Start: 08-26-2020 History SDOH Physical Activity MPS 6 [facility] Start: 08-26-2020 Education 12 [facility] Start: 1935 Sex Assigned At Male [facility] Start: 02-11-2020 End: 12-26-2021 Exposure to SARS-CoV-2 (event) Not sure [facility] History of tobacco use Current smoker [facility] Start: 05-04-2017 End: 12-26-2021 Tobacco use and exposure Smokeless tobacco non-user [facility] Start: 12-21-2021 End: 02-10-2023 Tobacco smoking status NHIS Unknown if ever smoked [facility] Start: 12-22-2021 Non-smoker [facility] Start: 12-26-2021 Tobacco Comment 30 yaers ago [facility] Start: 02-28-2020 End: 08-29-2021 History of Social function [facility] Start: 02-28-2020 End: 08-29-2021 Social connection and isolation panel [facility] Do you belong to any clubs or organizations such as sikhism groups, unions, fraternal or athletic groups, or school groups? No [facility] Are you now , , , , never or living with a partner? [facility] How often to you hav e a drink containing alcohol? Monthly or less [facility] How many standard dr inks containing alcohol do you have on a typical day? 1 or 2 [facility] How often do you hav e 6 or more drinks on 1 occasion? Never [facility] How hard is it for y ou to pay for the very basics like food, housing, medical care, and heating Not hard at all [facility] Do you feel stress - tense, restless, nervous, or anxious, or unable to sleep at night because your mind is troubled all the time - these days [OSQ] Not at all [facility] (I/We) worried wheth er (my/our) food would run out before (I/we) got money to buy more. Never true [facility] Start: 08-26-2020 Gender identity Identifies as male gender (finding) [facility] Start: 08-26-2020 Sexual orientation Heterosexual (finding) [facility] Sex Assigned At Sex [facility] Are you now , , , , never or living with a partner? [facility] How often to you hav e a drink containing alcohol? 2-4 times a month [facility] Goals Date Patient Goal Desired Activity /State Functional Status Date Assessment Result Facility 09-06-2024 Functional status Ambulates [facility] Work Phone: 07-26-2024 Total score [AUDIT-C] 1 07/27/19 6:26 PM EDT User, Mamtahart [facility] 07-26-2024 Within the last year , have you been humiliated or emotionally abused in other ways by your partner or ex-partner? No 07/26/2024 6:26 PM EDT User, Mychart No [facility] 07-26-2024 Within the last year , have you been afraid of your partner or ex-partner? No 07/26/2024 6:26 PM EDT User, Mychart No [facility] 07-26-2024 Within the last year , have you been raped or forced to have any kind of sexual activity by your partner or ex-partner? No 07/26/2024 6:26 PM EDT User, Mamtahart No [facility] 07-26-2024 Within the last year , have you been kicked, hit, slapped, or otherwise physically hurt by your partner or ex-partner? No 07/26/2024 6:26 PM EDT User, Mychart No [facility] 07-26-2024 How often to you hav e a drink containing alcohol? Monthly or less 07/26/2024 6:26 PM EDT User, Mychart Monthly or less [facility] 07-26-[address] inks containing alcohol do you have on a typical day? 1 or 2 07/26/2024 6:26 PM EDT User, Mychart 1 or 2 [facility] 07-26-2024 How often do you hav e 6 or more drinks on 1 occasion? Never 07/26/2024 6:26 PM EDT User, Mychart Never [facility] 11-17-2022 Functional Status Up ad tara [facility] 11-17-2022 Functional Status Identified as high risk, Fall ID band on, Room located near nursing station [facility] 12-22-2021 Functional status Ambulates;Chair [facility] Work Phone: 07-02-2016 Are you deaf, or do you have serious difficulty hearing No 07/02/2016 2:52 PM EDT Anita Zhang, DO No [facility] Work Phone: 07-02-2016 Are you blind, or do you have serious difficulty seeing, even when wearing glasses No 07/02/2016 2:52 PM EDT Anita Zhang, DO No [facility] 07-02-2016 Do you have serious difficulty walking or climbing stairs No 07/02/2016 2:52 PM EDT Anita Zhang, DO No [facility] 07-02-2016 Do you have difficul ty dressing or bathing No 07/02/2016 2:52 PM EDT Anita Zhang, DO No [facility] 07-02-2016 Because of a physica l, mental, or emotional condition, do you have difficulty doing errands alone such as visiting a physician's office or shopping No 07/02/2016 2:52 PM EDT Anita Zhang, DO No [facility] Mental Status Date Assessment Result Facility 09-06-2024 Cognitive function Voice/Name [facility] Work Phone: 09-05-2024 Cognitive function Appropriate;Cooperativ e [facility] Work Phone: 02-10-2023 Cognitive function Level Of Cons ciousness Awake;Alert;Appropriate;Fol lows Commands [facility] Work Phone: 11-17-2022 Mental Status Orientation Oriented x 4 [facility] 11-17-2022 Mental Status [facility] 12-22-2021 Cognitive function Voice/Name [facility] Work Phone: 12-21-2021 Cognitive function Voice/Name [facility] Work Phone: 07-02-2016 Because of a physica l, mental, or emotional condition, do you have serious difficulty concentrating, remembering, or making decisions No 07/02/2016 2:52 PM EDT Anita Zhang, DO No [facility] Clinical Notes 03-12-2020 to [...] in there for two weeks. Please advise [facility] 09-21-2024 Miscellaneous Notes Formattin g of this note might be different from the original. [facility]. Maria Guadalupe states that he has been in there for two weeks. Please advise documented in this encounter [facility] 09-06-2024 Consult note [facility] 09-06-2024 Consult note Note Date/Time September 06, 2024 4:37pm [facility] Medical Records Department [address] [place] [address] Counseling Note - Pharmacy 09/06/24 1143 MR#: [id number] Acct: [id number] Name: ROBY FLORES Rep #:[id number] : 1935 89 From: Isabelle Summers PCP: Dr. Stas Mora MD Status:AD M IN Location: [facility] [id number] Pharmacy [place] Med Reconciliation Pharmacy Service has performed discharge [...] Signature (if applicable): Date CC: ~ Signed [facility] Work Phone: 1(949) 278-295306-17-2025 Discharge summary Author Navid [facility] Note Date/Time September 06, 2024 11:[address] [place] [address] [facility] Medical Records Department [address] [place] [address] Discharge Summary 09/06/24 1109 MR#: [id number] Acct: [id number] Name: ROBY FLORES Rep #:[id number] : 1935 89 From: Navid Trejo PCP: Dr. Stas Mora MD Status:AD M IN Location: [facility] [place] [id number] Providers Date of Admission: 09/02/24 Date of [...] The daughter is the healthcare power of tax associate attorney. #History of dementia: On rivastigmine #Dyslipidemia: [...] (Auto) 66.8, Lymph % (Auto) 16.4 L, [place] % (Auto) 9.1, Eos % (Auto) 6.3 [...] in before D/C Order can be placed): Halfway Facility Charges/Coding Visit Charges Inpatient E&M: 75647 Disch Hosp >30min 09/06/24 1114 <Electronically signed by Navid Dominguez MD> Cosigner Signature (if applicable): CC: Dr. Stas Mora MD; Dr. Navid Dominguez MD~ Signed [facility] Work Phone: 1(222) 418-829006-17-2025 Discharge summary Author Navid Dominguez [facility] Note Date/Time September 06, 2024 11:0 9am [facility] Medical Records Department [address] [place] [address] Transfer to [facility] MR#: [id number] Acct: [id number] Name: ROBY FLORES Rep #:[id number] : 1935 89 From: Navid Trejo PCP: Dr. Stas Mora MD Status:AD M IN Certification of patient admission REQUIRED AT TIME OF ADMISSION. I CERTIFY THAT POST-HOSPITAL ECF SERVICES ARE REQUIRED TO BE GIVEN ON AN IN-PATIENT BASIS BECAUSE OF THE ABOVE NAMED PATIENT'S NEED FOR CORRECTION CARE ON A CONTINUING BASIS FOR THE CONDITION(S) FOR WHICH HE/SHE WAS RECEIVING IN-PATIENT HOSPITAL SERVICES PRIOR TO HIS/HER TRANSFER TO [facility]. 09/06/24 1109<Electronically signed by Navid Dominguez [...] explained to the [facility] # Fever * Patient developed a [...] The daughter is the healthcare power of tax associate attorney. #History of dementia: On rivastigmine #Dyslipidemia: [...] liberalized regular diet with consistency/texture as per THERAPIST RESPIRATORY. Will continue 120mL ensure plus HP 4 [...] in before D/C Order can be placed): Halfway Facility 09/06/24 1109 <Electronically signed by Navid Dominguez MD> Cosigner Signature (if applicable): CC: Dr. Stas Mora MD; Dr. Kathy Wells MD ~ [facility] Work Phone: 1(800) 600-681606-17-2025 Discharge summary [facility] Medical Records Department [address] [place] [address] Discharge Summary 09/06/24 1109 MR#: [id number] Acct: [id number] Name: ROBY FLORES Rep #:[id number] : 1935 89 From: Navid Trejo PCP: Dr. Stas Mora MD Status:AD M IN Location: [facility] RS363-6 Providers Date of Admission: 09/02/24 Date of [...] explained to the patient and his [facility] 09/06: INR 2.4. Hold warfarin today [...] The daughter is the healthcare power of tax associate attorney. #History of dementia: On rivastigmine #Dyslipidemia: [...] (Auto) 66.8, Lymph % (Auto) 16.4 L, [place] % (Auto) 9.1, Eos % (Auto) 6.3 [...] in before D/C Order can be placed): Halfway Facility Charges/Coding Visit Charges Inpatient E&M: 77293 Disch Hosp >30min 09/06/24 1114 Cosigner Signature (if applicable): CC: Dr. Stas Mora MD; Dr. Navid Dominguez MD~ Signed [facility]06-17-2025 Discharge summary [facility] Medical Records Department [address] [place] [address] Transfer to [facility] MR#: [id number] Acct: [id number] Name: ROBY FLORES Rep #:[id number] : 1935 89 From: Navid Trejo PCP: Dr. Stas Mora MD Status:AD M IN Certification of patient admission REQUIRED AT TIME OF ADMISSION. I CERTIFY THAT POST-HOSPITAL ECF SERVICES ARE REQUIRED TO BE GIVEN ON AN IN-PATIENT BASIS BECAUSE OF THE ABOVE NAMED PATIENT'S NEED FOR CORRECTION CARE ON A CONTINUING BASIS FOR THE CONDITION(S) FOR WHICH HE/SHE WAS RECEIVING IN-PATIENT HOSPITAL SERVICES PRIOR TO HIS/HER TRANSFER TO THE [facility]. 09/06/24 1109 Diet Diet Order/Speech Therapy: [...] The daughter is the healthcare power of tax associate attorney. #History of dementia: On rivastigmine #Dyslipidemia: [...] liberalized regular diet with consistency/texture as per THERAPIST RESPIRATORY. Will continue 120mL ensure plus HP 4 times per day w/ medpass. Monitor blood glucose level and restrict dietary carbohydrate as needed. Trend weights closely and adjust ONS as needed to optimize nutrition and preventenergy/pro depletion. Discharge Plan Admission Admit Date/Time: 09/02/24 12:49 Primary Reason for Your Visit: Mechanical fall Attending Provider: Navid Dominguez Primary Care Provider: Stas Mora Consulting Providers: Katyh Wells Discharge Orders/Prescriptions Prescriptions: New polyethylene glycol [...] in before D/C Order can be placed): Halfway Facility 09/06/24 1109 Cosigner Signature (if applicable): CC: Dr. Stas Mora MD; Dr. Kathy Wells MD ~ [facility]06-17-2025 [facility] Medical Records Department [address] [place] [address] Discharge Summary 09/06/24 1109 MR#: [id number] Acct: [id number] Name: ROBY FLORES Rep #: [id number] : 1935 89 From: Navid Dominguez MD PCP: Dr. Stas Mora MD Status:ADM IN [facility] Date of Admission: 09/02/24 Date of [...] The daughter is the healthcare power of tax associate attorney. #History of dementia: On rivastigmine #Dyslipidemia: [...] / Lab / Microbiol (more content not included)...[facility] 09-05-2024 Progress note Author Navid Dominguez [facility] Note Date/Time September 05, 2024 4:15 pm [facility] Medical Records Department [address] [place] [address] Progress Note - Hospitalist 09/05/24 1608 MR#: [id number] Acct: [id number] Name: ROBY FLORES Rep #:[id number] : 1935 89 From: Navid Trejo PCP: Dr. Stas Mora MD Status:AD M IN Location: [facility] [place] HH275-2 Reason for Visit Reason for Visit: Diagnoses [...] Clarity Clear, Urine pH 7.0, Ur Specific Cinebar 1.005, Urine Protein 15 H, Urine Glucose [...] 77.2 H, Lymph % (Auto) 9.8 L, [place] % (Auto) 7.9, Eos % (Auto) 4.0, [...] The daughter is the healthcare power of tax associate attorney. #History of dementia: On rivastigmine #Dyslipidemia: On statin #Benign essential hypertension: On lisinopril. DVT prophylaxis: * Resume Coumadin today. INR 1.8. Daughter still thinking about that she wants him to continue otherwise. Code status: DNRCCA no intubation * Disposition: Awaiting placement. PT OT on board. Charges/Coding Visit Charges Inpatient E&M: 33818 Subs Hosp L2 09/05/24 1615 <Electronically signed by Navid Dominguez MD> Cosigner Signature (if applicable): CC: ~ Signed [facility] Work Phone: 1(839) 970-719506-16-2025 Progress note [facility] Medical Records Department [address] [place] [address] Progress Note - Hospitalist 09/05/24 1608 MR#: [id number] Acct: [id number] Name: ROBY FLORES Rep #:[id number] : 1935 89 From: Navid Trejo PCP: Dr. Stas Mora MD Status:AD M IN Location: [place] TA450-1 Reason for Visit Reason for Visit: Diagnoses [...] Clarity Clear, Urine pH 7.0, Ur Specific Cinebar 1.005, Urine Protein 15 H, Urine Glucose [...] 77.2 H, Lymph % (Auto) 9.8 L, [place] % (Auto) 7.9, Eos % (Auto) 4.0, [...] explained to the patient and his [facility]. # Fever * Patient developed a [...] The daughter is the healthcare power of tax associate attorney. #History of dementia: On rivastigmine #Dyslipidemia: On statin #Benign essential hypertension: On lisinopril. DVT prophylaxis: * Resume Coumadin today. INR 1.8. Daughter still thinking about that she wants him to continue otherwise. Code status: DNRCCA no intubation * Disposition: Awaiting placement. PT OT on board. Charges/Coding Visit Charges Inpatient E&M: 39852 Subs Hosp L2 09/05/24 1615 Cosigner Signature (if applicable): CC: ~ Signed [facility]06-15-2025 Progress note Author Kathy Wells [facility] Note Date/Time September 04, 2024 3:37 pm [facility] Medical Records Department [address] [place] [address] Progress Note 09/04/24 1412 MR#: [id number] Acct: [id number] Name: ROBY FLORES Rep #:[id number] : 1935 89 From: Kathy Wells MD PCP: Dr. Stas Mora MD Status:AD M IN Location: [facility] OR593-9 Subjective Subjective Patient seen and examined. He [...] 78.0 H, Lymph % (Auto) 7.8 L, [place] % (Auto) 7.7, Eos % (Auto) 5.3 [...] The daughter is the healthcare power of tax associate attorney. * In light of patient's confusion [...] on board. Charges/Coding Visit Charges Inpatient E&M: 46286 Subs Hosp L2 09/04/24 1537 <Electronically signed by Kathy Wells MD> Kathy Wells MD Cosigner Signature (if applicable): CC: ~ Signed [facility] Work Phone: 1(613) 363-384706-15-2025 Progress note [facility] Medical Records Department [address] [place] [address] Progress Note 09/04/24 1412 MR#: [id number] Acct: [id number] Name: ROBY FLORES Radha Rep #:[id number] : 1935 89 From: Kathy Wells MD PCP: Dr. Stas Mora MD Status:AD M IN Location: [facility] LJ346-6 Subjective Subjective Patient seen and examined. He [...] 78.0 H, Lymph % (Auto) 7.8 L, [place] % (Auto) 7.7, Eos % (Auto) 5.3 [...] The daughter is the healthcare power of tax associate attorney. * In light of patient's confusion [...] on board. Charges/Coding Visit Charges Inpatient E&M: 70452 Subs Hosp L2 09/04/24 1537 Kathy Wells MD Cosigner Signature (if applicable): CC: ~ Signed [facility]06-14-2025 Progress note Author Kathy Wells [facility] Note Date/Time September 03, 2024 6:29 pm [facility] Medical Records Department [address] [place] [address] Progress Note 09/03/24 1135 MR#: [id number] Acct: [id number] Name: ROBY FLORES Rep #:[id number] : 1935 89 From: Kathy Wells MD PCP: Dr. Stas Mora MD Status:AD M IN Location: [facility] SW528-2 Subjective Subjective Patient seen and examined. He [...] 83.4 H, Lymph % (Auto) 6.7 L, [place] % (Auto) 6.0, Eos % (Auto) 2.8, [...] The daughter is the healthcare power of tax associate attorney. * In light of patient's confusion [...] on board. Charges/Coding Visit Charges Inpatient E&M: 22141 Subs Hosp L2 09/03/24 2190 <Electronically signed by Kathy Wells MD> Kathy Wells MD Cosigner Signature (if applicable): CC: ~ Signed [facility] Work Phone: 1(775) 560-479806-14-2025 Progress note [facility] Medical Records Department [address] [place] [address] Progress Note 09/03/24 1135 MR#: [id number] Acct: [id number] Name: ROBY FLORES Rep #:[id number] : 1935 89 From: Kathy Wells MD PCP: Dr. Stas Mora MD Status:AD M [place] Location: [place] NC004-4 Subjective Subjective Patient seen and examined. He [...] 83.4 H, Lymph % (Auto) 6.7 L, [place] % (Auto) 6.0, Eos % (Auto) 2.8, [...] The daughter is the healthcare power of tax associate attorney. * In light of patient's confusion [...] on board. Charges/Coding Visit Charges Inpatient E&M: 52790 Subs Hosp L2 09/03/24 1102 Kathy Wells MD Cosigner Signature (if applicable): CC: ~ Signed [facility]06-14-2025 Consult note Author Spike De La Cruz [facility] Note Date/Time September 03, 2024 3:49 pm [facility] Medical Records Department [address] [place] [address] Pharmacokinetic/Renal -Consult 09/03/24 1548 MR#: [id number] Acct: [id number] Name: ROBY FLORES Rep #:[id number] : 1935 89 From: Spike Maynard [facility] PCP: Dr. Stas Mora MD Status:AD M IN Y Location: [place] [address]-1 Consult Antibiotic Management Pharmacy has been consulted [...] Labs: Trough: Vancomycin (09/04/24 at 2130) 09/03/24 7859 <Electronically signed by Spike Angelo [facility]> Date _ Spike De La Cruz [facility] Cosigner Signature (if applicable): Date CC: ~ Signed [facility] Work Phone: 1(243) 172-543006-14-2025 Consult note [facility] Medical Records Department [address] [place] [address] Pharmacokinetic/Renal -Consult 09/03/24 1548 MR#: [id number] Acct: [id number] Name: ROBY FLORES Rep #:[id number] : 1935 89 From: Spike Maynard [facility] PCP: Dr. Stas Mora MD Status:AD M IN Y Location: [place] [address] Consult Antibiotic Management Pharmacy has been consulted [...] Vancomycin (09/04/24 at 2130) 09/03/24 1549 ing [facility]> Date _ [facility] Cosigner Signature (if applicable): Date CC: ~ Signed [facility]06-13-2025 Progress note Author Kathy [facility] Note Date/Time September 02, 2024 6:45 pm [facility] Medical Records Department [address] [place] [address] Progress Note 09/02/24 1404 MR#: [id number] Acct: [id number] Name: ROBY FLORES Rep #:[id number] : 1935 89 From: Kathy Wells MD PCP: Dr. Stas Mora MD Status:AD M [place] Location: [place] CE332-3 Subjective Subjective Patient seen and examined. He [...] (Auto) 87.9 H, Lymph %(Auto) 3.8 L, [place] % (Auto) 4.8, Eos % (Auto) 2.2, [...] evidence of intracranial bleed. * Admit to [facility]. Hydrate gently with IV fluids. * PT [...] The daughter is the healthcare power of tax associate attorney. * In light of patient's confusion [...] intubation * Charges/Coding Visit Charges Inpatient E&M: 33879 Subs Hosp L2 09/02/24 1225 <Electronically signed by Kathy Wells MD> Kathy Wells MD Cosigner Signature (if applicable): CC: ~ Signed [facility] Work Phone: 1([phone]) 217-801506-13-2025 Progress note [facility] Medical Records Department [address] [place] [address] Progress Note 09/02/24 1404 MR#: [id number] Acct: [id number] Name: ROBY FLORES Rep #:[id number] : 1935 89 From: Kathy Wells MD PCP: Dr. Stas Mora MD Status:AD M IN Location: [facility] JL653-1 Subjective Subjective Patient seen and examined. He [...] (Auto) 87.9 H, Lymph %(Auto) 3.8 L, [place] % (Auto) 4.8, Eos % (Auto) 2.2, [...] evidence of intracranial bleed. * Admit to [facility]. Hydrate gently with IV fluids. * PT [...] The daughter is the healthcare power of tax associate attorney. * In light of patient's confusion [...] intubation * Charges/Coding Visit Charges Inpatient E&M: 35940 Subs Hosp L2 09/02/24 0314 Kathy Wells MD Cosigner Signature (if applicable): CC: ~ Signed [facility]06-13-2025 Evaluation note* Diagnosis Onset Date Resolution Status Admit Date Adult failure to thrive acute [facility] 2024 12:49pm Chronic anticoagulation acute [facility] 2024 12:49pm Contusion of hip acute August 12:49pm Fall acute September 02 12:49pm History of atrial fibrillation acute September 02, 2024 12:49pm History of dementia acute September 02, 2024 12:49pm History of TIAs acute August 12:49pm Unable to ambulate acute August 212024 12:49pm [facility] Work Phone: 1(244) 872-824306-13-2025 Evaluation note* Diagnosis Onset Date Resolution Status Admit Date Chronic anticoagulation acute [facility] 2024 12:49pm Contusion of hip acute August 12:49pm Fall acute September 02 12:49pm History of atrial fibrillation acute September 02, 2024 12:49pm History of TIAs acute August 12:49pm Unable to ambulate acute August 212024 12:49pm Adult failure to thrive inactive [facility] 2024 12:49pm History of dementia inactive September 02, 2024 12:49pm [facility] Work Phone: 1(183) 414-868706-12-2025 Consult note Author Zachary Lubin [facility] Note Date/Time September 01, 2024 9:15 pm [facility] Medical Records Department [address] [place] [address] Pharmacokinetic/Renal -Consult 09/01/242113 MR#: [id number] Acct: [id number] Name: ROBY FLORES Rep #:[id number] : 1935 89 From: Zachary Serrano od PCP: Dr. Stas Mora MD Status:AD M GERMAN Y Location: [place] [address] Consult Antibiotic Management Pharmacy has been consulted [...] (if applicable): Date _ CC: ~ Signed [facility] Work Phone: 1(205) 641-334106-12-2025 Progress note Author Marta Black [facility] Note Date/Time September 01, 2024 7:55 pm [facility] Medical Records Department [address] [place] [address] Progress Note - Hospitalist 09/01/241952 MR#: [id number] Acct: [id number] Name: ROBY FLORES Rep #:[id number] : 1935 89 From: Marta Black DO PCP: Dr. Stas Mora MD Status:AD M [facility] Location: [place] [address] Hospitalist Note Called regarding Mr. Flores having [...] Cosigner Signature (if applicable): CC: ~ Signed [facility] Work Phone: 1(869) 988-595106-12-2025 Consult note [facility] Medical Records Department [address] [place] [address] Pharmacokinetic/Renal -Consult 09/01/242113 MR#: [id number] Acct: [id number] Name: ROBY FLORES Rep #:[id number] : 1935 89 From: Zachary Serrano od PCP: Dr. Stas Mora MD Status:AD M GERMAN Y Location: [place] [address] Consult Antibiotic Management Pharmacy has been consulted [...] (if applicable): Date _ CC: ~ Signed [facility]06-12-2025 History and physical note Author Kathy Wells [facility] Note Date/Time September 01, 2024 6:04 pm [facility] Medical Records Department [address] [place] [address] H&P Exam - Hospitalist 09/01/24 1018 MR#: [id number] Acct: [id number] Name: ROBY FLORES Rep #:[id number] : 1935 89 From: Kathy Wells MD PCP: Dr. Stas Mora MD Status:AD M [facility] Location: [facility] ME092-5 HPI - General General Date of Admission: [...] in the ED were BP of 180/89, MI of 87, RR of 18 and temp [...] weakness due to mechanical fall. [facility] Medical History Chronic anticoagulation TIA (transient ischemic [...] 87.5 H, Lymph % (Auto) 4.8 L, [place] % (Auto) 5.7, Eos % (Auto) 1.2, [...] Clarity Clear, Urine pH 8.0, Ur Specific Cinebar 1.010, Urine Protein 15 H, Urine Glucose [...] fracture or dislocation present. Reading Location: [facility]--[address] 09/01/24 09:05 IMPRESSION: Cerebral atrophy. Mucosal thickening of the ethmoid sinuses as well as opacification of the left maxillary sinus. Reading Location: [facility]-1 Chest X-Ray 09/01/24 09:25 IMPRESSION: No acute abnormality is seen. Reading Location: [facility]--1 Assessment & Plan Assessment/Plan (1) Adult [...] evidence of intracranial bleed. [facility]. * PT [...] The daughter is the healthcare power of tax associate attorney. * In light of patient's confusion [...] be DNR CCA no intubation. * Total zkua-yn-nasd time 16 minutes. Charges/Coding Visit Charges Inpatient E&M: 98787 Init Hosp L3 Procedures Hospitalists Procedures: 99821 Advncd Care Plan 30 Min 09/01/24 1804 <Electronically signed by Kathy Wells MD> Cosigner Signature (if applicable): CC: Dr. Stas Mora MD; Dr. Kathy Wells MD~ Signed [facility] Work Phone: 1(693) 142-432206-12-2025 Progress note [facility] Medical Records Department [address] [place] [address] Progress Note - Hospitalist 09/01/241952 MR#: [id number] Acct: [id number] Name: ROBY FLORES E Rep #:[id number] : 1935 89 From: Marta Black DO PCP: Dr. Stas Mora MD Status:AD M [facility] Location: [place] [address]-1 Hospitalist Note Called regarding Mr. Flores having [...] Cosigner Signature (if applicable): CC: ~ Signed [facility]06-12-2025 History and physical note [facility] Medical Records Department [address] [place] [address] H&P Exam - Hospitalist 09/01/24 1018 MR#: [id number] Acct: [id number] Name: ROBY FLORES E Rep #:[id number] : 1935 89 From: Kathy Wells MD PCP: Dr. Stas Mora MD Status:AD M [place] Location: [place]3 NW919-2 HPI - General General Date of Admission: [...] in the ED were BP of 180/89, MI of 87, RR of 18 and temp [...] weakness due to mechanical fall. [facility] Medical History Chronic anticoagulation TIA (transient ischemic [...] 87.5 H, Lymph % (Auto) 4.8 L, [place] % (Auto) 5.7, Eos % (Auto) 1.2, [...] Clarity Clear, Urine pH 8.0, Ur Specific Cinebar 1.010, Urine Protein 15 H, Urine Glucose [...] fracture or dislocation present. Reading Location: [facility]-[address] 09/01/24 09:05 IMPRESSION: Cerebral atrophy. Mucosal thickening of the ethmoid sinuses as well as opacification of the left maxillary sinus. Reading Location: [facility]-1 Chest X-Ray 09/01/24 09:25 IMPRESSION: No acute abnormality is seen. Reading Location: [facility]-1 Assessment & Plan Assessment/Plan (1) Adult [...] The daughter is the healthcare power of tax associate attorney. * In light of patient's confusion [...] be DNR CCA no intubation. * Total xlty-ki-kuxn time 16 minutes. Charges/Coding Visit Charges Inpatient E&M: 82735 Init Hosp L3 Procedures Hospitalists Procedures: 51195 Advncd Care Plan 30 Min 09/01/24 1804 Cosigner Signature (if applicable): CC: Dr. Stas Mora MD; Dr. Kathy Wells MD~ Signed [facility]06-12-2025 Telephone encounter Note* Telephone Encounter - Haydee Oliveros LPN - 09/01/2024 2:49 PM EDT Mychart message sent [facility]06-12-2025 Miscellaneous Notes* Telephone Encounter [...] affordable alvarado using Good Rx coupons. At [facility] (his current pharmacy), he can get a 1 mo supply for ~$30. If he switches the prescription to [facility], he can get a 1 mo supply for ~$20. See coupons below. Rivastigmine patches are also available via [employer]. It appears the cheapest option is through [facility], in which he can get 30 patches for $52. Coupon also below. Sending to PCP to review and provide patient with coupon card information. Russell Aguayo PharmD, BCPS Primary Care Clinical Pharmacist Memantine coupon at [facility] Memantine coupon at [facility] Rivastigmine patches coupon at [facility] documented [facility]06-[facility] Telephone encounter Note * Telephone Encounter - Luciana Cisneros MD - 09/01/2024 1:26 PM EDT Thanks Russell, Staff please let patient know what the pharmacist as opined on. Regards, Luciana Cisneros MD [facility]06-12-2025 Discharge summary Author Inderjit Gillespie [facility] Note Date/Time September 01, 2024 10:2 5am [facility] Medical Records Department [address] [place] [address] Emergency Department Summary 09/01/24 MR#: [id number] Acct: [id number] Name: ROBY FLORES Rep #:[id number] : [...] Prior similar symptoms: No Recent [facility] Medical History Chronic anticoagulation TIA (transient ischemic [...] shoulders elbows and wrist. He has normal trackwalker strength. Neurologically he is awake alert. Answering [...] 87.5 H Lymph % (Auto) 4.8 L [place] % (Auto) 5.7 Eos % (Auto) 1.2 [...] Clarity Clear Urine pH 8.0 Ur Specific Cinebar 1.010 Urine Protein 15 H Urine Glucose [...] fracture or dislocation present. Reading Location: [facility]--[address] 09/01/24 09:05 IMPRESSION: Cerebral atrophy. Mucosal thickening of the ethmoid sinuses as well as opacification of the left maxillary sinus. Reading Location: [facility]--1 Chest X-Ray 09/01/24 09:25 IMPRESSION: No acute abnormality is seen. Reading Location: [facility]--1 Chest x-ray, 2 views, AP and [...] failure to thrive Disposition Disposition: Acute Care [facility] What to do if you have Problems For any increased pain, shortness of breath, bleeding, nausea or vomiting, chestpain, or any unexpected problems, contact your Primary Care Provider. Call [facility] ([phone]) or report to the closest Emergency Room. Call 911 if necessary. 09/01/24 1025 <Electronically signed by Inderjit Gillespie MD> Cosigner Signature (if applicable): CC: Dr. Stas Mora MD ~ Signed [facility] Work Phone: 1(189) 709-523006-12-2025 Discharge summary [facility] Medical Records Department [address] [place] [address] Emergency Department Summary 09/01/24 MR#: [id number] Acct: [id number] Name: ROBY FLORES Rep #:[id number] : [...] shoulders elbows and wrist. He has normal trackwalker strength. Neurologically he is awake alert. Answering [...] 87.5 H Lymph % (Auto) 4.8 L [place] % (Auto) 5.7 Eos % (Auto) 1.2 [...] Clarity Clear Urine pH 8.0 Ur Specific Cinebar 1.010 Urine Protein 15 H Urine Glucose [...] fracture or dislocation present. Reading Location: [facility]--[address] 09/01/24 09:05 IMPRESSION: Cerebral atrophy. Mucosal thickening of the ethmoid sinuses as well as opacification of the left maxillary sinus. Reading Location: [facility]--1 Chest X-Ray 09/01/24 09:25 IMPRESSION: No acute abnormality is seen. Reading Location: [facility]--1 Chest x-ray, 2 views, AP and [...] to thrive Disposition Disposition: Acute Care [facility] What to do if you have Problems For any increased pain, shortness of breath, bleeding, nausea or vomiting, chestpain, or any unexpected problems, contact your Primary Care Provider. Call [facility] ([phone]) or report tothe closest Emergency Room. Call 911 if necessary. 09/01/24 1025 Cosigner Signature (if applicable): CC: Dr. Stas Mora MD ~ Signed [facility]06-12-2025 Telephone encounter Note* Telephone Encounter - Russell [...] affordable alvarado using Good Rx coupons. At [facility] (his current pharmacy), he can get a 1 mo supply for ~$30. If he switches the prescription to [facility], he can get a 1 mo supply for ~$20. See coupons below. Rivastigmine patches are also available via Good[employer]. It appears the cheapest option is through [facility], in which he can get 30 patches for $52. Coupon also below. Sending to PCP to review and provide patient with coupon card information. Russell Aguayo, Saúl, [facility] Primary Care Clinical Pharmacist Memantine coupon at [facility] Memantine coupon at [facility] Rivastigmine patches coupon at [facility] Work Phone: [phone]) 450-841806-12-2025 Radiology Diagnostic study note [facility] Imaging Services [address] [place], [place] [address] Brain/Head without Contrast MR#: [id number] Acct: [id number] Name: ROBY FLORES Rep #: : 1935 M 89 From: Laith Chavez MD PCP: Dr. Stas Mora MD Status: RE G ER Study:Brain/Head without Contrast Date of Exa m: 09/01/24 Exam# [id number] Ordering Dr: Earlene Gillespie MD PROCEDURE: BRAIN/HEAD [...] of the left maxillary sinus. [facility] CC: Dr. Inderjit Gillespie MD; Dr. Stas Mora MD ~ Warp Clamper: Signed [facility]06-12-2025 Radiology Diagnostic study note [facility] Imaging Services [address] [place], [place] [address] Chest 1 View (Portable) MR#: [id number] Acct: [id number] Name: ROBY FLORES Rep #: [id number] : 1935 M 89 From: Laith Chavez MD PCP: Dr. Stas Mora MD Status: RE ER Study:Chest 1 View (Portable) Date of Exam: 09/01/24 Exam# [id number] Ordering Dr: Earlene Gillespie MD PROCEDURE: CHEST [...] No acute abnormality is seen. Reading Location: [place] [address] CC: Dr. Inderjit Gillespie MD; Dr. Stas Mora MD ~ Warp Clamper: Signed [facility]06-12-2025 Radiology Diagnostic study note [facility] Imaging Services [address] [place] [address] Hips B/L min 2 views w/ Pelvis MR#: [id number] Acct: [id number] Name: ROBY FLORES Rep #: [id number] : 1935 89 From: Laith Chavez MD PCP: Dr. Stas Mroa MD Status: [facility] ER Study:Hips B/L min 2 views w/ Pelvis Date of Exam: 09/01/24 Exam# [id number] Ordering Dr: Earlene Gillespie MD PROCEDURE: HIPS [...] No fracture or dislocation present. Reading Location: [place] [address] CC: Dr. Inderjit Gillespie MD; Dr. Stas Mora MD ~ Warp Clamper: Signed [facility]06-11-2025 NoteHNO ID: [id number] Author: LUCIANA CISNEROS MD Service: ? Author [...] and believing his brother, who lives in [place], was present. 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 [...] excuse any unintended typographical errors. Recording using [employer] software for draft documentation of the visit was discussed with the patient/authorized patient support representative; all questions welcomed and answered. Patient/authorized patient support representative agreed to proceed Luciana Cisneros [facility]06-11-2025 History of Present illness Narrative* Luciana Cisneros [...] and believing his brother, who lives in [place], was present. 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 [...] any unintended typographical errors. Recording using [employer] software for draft documentation of the visit was discussed with the patient/authorized patient support representative; all questions welcomed and answered. Patient/authorized patient support representative agreed to proceed Luciana Cisneros MD [facility] Telephone encounter Note * Telephone Encounter - Coretta Jalloh [facility] - 08/31/2024 2:09 PM EDT [facility] Ambulatory [facility] Anticoagulation Clinic Anticoagulation Episode Summary Anticoagulation Care Providers Provider Role Specialty Phone number Stas Mora MD Referring Family Medicine [phone] Roby Flores is a 89 year old [...] ALLERGIES No Known Allergies Indication for Warfarin: 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 current use of anticoagulant Paroxysmal atrial fibrillation [...] Pharmacy Anticoagulation Clinic Pharmacy Anticoagulation Clinic Pager: [phone]. [facility]06-11-2025 Miscellaneous Notes* Telephone Encounter - Coretta Jalloh RPh - 08/31/2024 2:09 PM EDT [facility] Anticoagulation Clinic Anticoagulation Episode Summary Anticoagulation Care Providers Provider Role Specialty Phone number Stas Mora MD Referring Family Medicine [phone] Roby Flores is a 89 year old [...] ALLERGIES No Known Allergies Indication for Warfarin: 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 current use of anticoagulant Paroxysmal atrial fibrillation [...] Pharmacy Anticoagulation Clinic Pharmacy Anticoagulation Clinic Pager: [phone]. documented in [facility] encounterR[facility]06-[facility]-2025 Instructions* Patient Instructions* Luciana Cisneros [...] if your symptoms change. documented in this encounterR[facility]06-01-2025 Evaluation note* Diagnosis Onset Date [...] Unable to ambulate acute August 212024 10:24am [facility] Work Phone: 1([phone]) [phone] Telephone encounter Note* Telephone Encounter - Coretta Jalloh RPh - 08/03/2024 11:20 AM EDT I have reviewed the below recommendations and agree with plan. Coretta Jalloh PharmD [facility]05-14-2025 Miscellaneous Notes* Telephone Encounter - Coretta Jalloh RPh - 08/03/2024 11:20 AM EDT I have reviewed the below recommendations and agree with plan. Coretta Jalloh PharmD * Telephone Encounter - Adrian HuangRevealElana Berry - 08/03/2024 10:57 AM EDT PATIENT [...] 08/31/2024 Caregiver verbalized understanding. Will route to [facility] as FYI. Elana Campbell (Reveal) * Telephone Encounter - Coretta Jalloh [facility] - 08/03/2024 10:41 AM EDT [facility]ulatory [facility] Anticoagulation Clinic Anticoagulation Episode Summary Anticoagulation Care Providers Provider Role Specialty Phone number Stas Mora MD Referring Family Medicine [phone] Roby Flores is a 88 year old [...] ALLERGIES No Known Allergies Indication for Warfarin: 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 current use of 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 Coretta Jalloh [facility] Clinical Pharmacist, Pharmacy Anticoagulation Clinic Pharmacy Anticoagulation Clinic Pager: [phone]. documented in this encounterR[facility]05-14-2025 Telephone encounter Note * Telephone Encounter - Adrian HuangCorporate Sales Representative)Elana - 08/03/2024 10:57 AM EDT PATIENT CALL [...] 08/31/2024 Caregiver verbalized understanding. Will route to [facility] as FYI. Elana Campbell (Reveal) [facility]05-14-2025 Telephone encounter Note* Telephone Encounter - Coretta Jalloh RPh - 08/03/2024 10:41 AM EDT [facility] Anticoagulation Clinic Anticoagulation Episode Summary Anticoagulation Care Providers Provider Role Specialty Phone number Stas Mora MD Referring Family Medicine [phone] Roby Flores is a 88 year old [...] ALLERGIES No Known Allergies Indication for Warfarin: prison current use of anticoagulant Paroxysmal atrial fibrillation [...] Pharmacy Anticoagulation [facility] Pharm[facility] Pager: [phone]. [facility]05-08-2025 History of Present illness [...] Coronary atherosclerosis of unspecified type of vessel, tetlin or graft Coronary artery disease Other and [...] Histories independently gathered by the clinical it desktop support specialist and the remaining scribed note [...] AM. Rosie Cruz MA documented in this encounterR[facility]25 NoteHNO ID: [id number] Author: STAS MORA MD Service: ? Author [...] Coronary atherosclerosis of unspecified type of vessel, tetlin or graft Coronary artery disease Other and [...] Histories independently gathered by the clinical it desktop support specialist and the remaining scribed note [...] July 28, 2024 11:16 AM. Rosie Cruz [facility]04-16-2025 Telephone encounter Note* Telephone Encounter - Coretta Jalloh [facility] - 07/06/2024 10:11 AM EDT [facility] Antico[facility] Anticoagulation Episode Summary Anticoagulation Care Providers Provider Role Specialty Phone number Stas Mora MD Referring Family Medicine [phone] Roby Flores is a 88 year old [...] ALLERGIES No Known Allergies Indication for Warfarin: 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 current use of anticoagulant Paroxysmal atrial fibrillation [...] Pharmacy Anticoagulation Clinic Pharmacy Anticoagulation Clinic Pager: [phone]. [facility]04-16-2025 Miscellaneous Notes* Telephone Encounter - Coretta Jalloh RPh - 07/06/2024 10:11 AM EDT [facility] Anticoagulation [facility] Anticoagulation Episode Summary Anticoagulation Care Providers Provider Role Specialty Phone number Stas Mora MD Referring Family Medicine [phone] Roby Flores is a 88 year old [...] ALLERGIES No Known Allergies Indication for Warfarin: prison current use of anticoagulant Paroxysmal atrial fibrillation [...] Pharmacy Anticoagulation Clinic Pharmacy Anticoagulation Clinic Pager: [phone]. documented in this encounterRivers[facility]04-[facility]-2025 Telephone encounter Note * Telephone Encounter - Coretta Jalloh RPh - 06/29/2024 9:52 AM EDT [facility] Anticoagulation Episode Summary Anticoagulation Care Providers Provider Role Specialty Phone number Stas Mora MD Referring Family Medicine [phone] Roby Flores is a 88 year old [...] ALLERGIES No Known Allergies Indication for Warfarin: prison current use of anticoagulant Paroxysmal atrial fibrillation (hcc) Anticoagulation Episode Summary Current INR goal: 2.0-3.0 Assessment: INR result of 2.5 is therapeutic Plan: Current Warfarin Dosing As of 06/29/2024 Full warfarin instructions: 1.5 mg every Thu, Sat; 2.5 mg all other days Sent [employer] message Advised patient to continue current weekly [...] Pharmacy Anticoagulation Clinic Pharmacy Anticoagulation Clinic Pager: [phone]. [facility]04-09-2025 Miscellaneous Notes* Telephone Encounter - Coretta Jalloh RPh - 06/29/2024 9:52 AM EDT [facility] Anticoagulation [facility] Anticoagulation Episode Summary Anticoagulation Care Providers Provider Role Specialty Phone number Stas Mora MD Referring Family Medicine [phone] Roby Flores is a 88 year old [...] ALLERGIES No Known Allergies Indication for Warfarin: prison current use of anticoagulant Paroxysmal atrial fibrillation (hcc) Anticoagulation Episode Summary Current INR goal: 2.0-3.0 Assessment: INR result of 2.5 is therapeutic Plan: Current Warfarin Dosing As of 06/29/2024 Full warfarin instructions: 1.5 mg every Thu, Sat; 2.5 mg all other days Sent [employer] message Advised patient to continue current weekly [...] Pharmacy Anticoagulation Clinic Pharmacy Anticoagulation Clinic Pager: [phone]. documented in this encounterRiverside [facility]03-12-2025 Instructions* Patient Instructions* Luciana Cisneros MD - 06/01/2024 3:39 PM EDT Look into adult date care once or twice a week. Physical Therapy for vascular parkinsonism documented in this encounterRiverside [facility] Hospital03-12-2025 NoteHNO ID: [id number] Author: LUCIANA CISNEROS MD Service: ? Author Type: Physician Type: Progress Notes Filed: 07/14/2024 16:10 Note Text: [facility] Initial Consult Roby [...] not know 911 Social History: Primary language: Tuvaluan Marital Status: Single Living situation: Home w/ SO Socially engaged? (participates in activities such as clubs, sikhism, community center, sports, games, visiting friends/relatives, etc?): They go out to eat sometimes, not as often, most of the time they order stuff and pick it up at home. Caregiver Chadwicks and Stress Are your feeling overwhelmed? 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 (participates in activities such as clubs, sikhism, community center, sports, games, visiting friends/relatives, etc?): They go out to eat sometimes, not as often, most of the time they order stuff and pick it up at home. Caregiver Chadwicks and Stress Are your feeling overwhelmed? 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 Yes, Authorizing Provider Elvis Kearney APRN.DATASTAGE CONSULTANT Medication warfarin (COUMADIN) 1 mg tablet, Sig Take 1 tablet by mouth once daily. Patient not taking: Reported on 04/27/2024, Start Date 11/16/23, End Date , Taking? , Authorizing Provider Elvis Kearney APRN.DATASTAGE CONSULTANT Medication furosemide (LASIX) 20 mg tablet, Sig [...] 12/17/23, Taking? , Authorizing Provider Elvis Kearney APRN.DATASTAGE CONSULTANT Other OTC med/supplements: None Medication Review: - ANY HIGH RISK MEDICATIONS (STOPP CRITERIA): NO ALLERGIES No Known Allergies Review of Systems Difficulty chew/swallow: No Pain: No Tremor: No Incontinence - During the last 3 months did you leak urine? YES - Type?: likely functional incontinence Constipation/Change in bowel habits: No Vision Positive for vision impairment and wears glasses Follows with finance clerk:YES Hearing - Hearing aid : Hearing impairment, [...] Luciana Cisneros MD [facility] documented in this encounterR[facility]03-06-2025 Telephone encounter Note * Telephone Encounter - Edilia Mosley - 05/26/2024 3:28 PM EST Spoke with patient's significant other and scheduled on geriatric schedule as directed. Edilia Mosley [facility]03-06-2025 Miscellaneous Notes* Telephone Encounter - Edilia Mosley - 05/26/2024 3:28 PM EST Spoke with patient's significant other and scheduled on geriatric schedule as directed. Edilia Mosley * Telephone Encounter - Vicki Patricia LPN - 05/26/2024 3:01 PM EST Patient scheduled for 05/30/24 internal medicine, needs a Geriatric appointment instead Vicki Patricia LPN May 26, 2024 3:01 PM documented in this encounterRiverside [facility] Hospital03-06-2025 Telephone encounter Note * Telephone Encounter - Vicki Patricia LPN - 05/26/2024 3:01 PM EST Patient scheduled for 05/30/24 internal medicine, needs a Geriatric appointment instead Vicki Patricia LPN May 26, 2024 3:01 PM [facility]03-06-2025 History of Present illness [...] Coronary atherosclerosis of unspecified type of vessel, tetlin or graft Coronary artery disease Other and [...] 05/25/2024 1.50 Monocytes %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 Allergies Indication for Warfarin: 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 current use of anticoagulant Paroxysmal atrial fibrillation [...] Pharmacy Anticoagulation Clinic Pharmacy Anticoagulation Clinic Pager: [phone]. [facility]08-[facility] Miscellaneous Notes* Telephone Encounter - Coretta Jalloh RPh - 11/18/2023 4:30 PM EDT [facility] Anticoagulation Clinic Anticoagulation Episode Summary Anticoagulation Care Providers Provider Role Specialty Phone number Stas Mora MD Referring Family Medicine [phone] Roby Flores is a 88 year old [...] ALLERGIES No Known Allergies Indication for Warfarin: 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 current use of anticoagulant Paroxysmal atrial fibrillation [...] Pharmacy Anticoagulation Clinic Pharmacy Anticoagulation Clinic Pager: [phone]. documented in this encounterRiverside [facility]08-26-2024 Telephone encounter Note * Telephone Encounter - Elvis Kearney APRN.CNP - 11/16/2023 9:39 AM EDT The following approved medication requests have been transmitted electronically. Requested Prescriptions Pending Prescriptions Disp Refills warfarin (COUMADIN) 1 mg tablet 30 tablet 5 Sig: Take 1 tablet by mouth once daily. Elvis Kearney APRN.CNP [facility]08-26-2024 Miscellaneous Notes* Telephone Encounter [...] 16, 2023 9:00 AM documented in this encounterRiverside [facility] Hospital08-26-2024 Telephone encounter Note * Telephone [...] Shahid MA November 16, 2023 9:06 AM [facility]08-[facility] Telephone encounter Note* Telephone [...] Keke Rinaldi November 16, 2023 9:00 AM [facility]07-24-[facility] Telephone encounter Note* Telephone Encounter - Coretta Jalloh RPh - 10/14/2023 4:21 PM EDT [facility] Antico[facility] Anticoagulation Episode Summary Anticoagulation Care Providers Provider Role Specialty Phone number Stas Mora MD Referring Family Medicine [phone] Roby Flores is a 88 year old [...] ALLERGIES No Known Allergies Indication for Warfarin: 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 current use of anticoagulant Paroxysmal atrial fibrillation [...] Pharmacy Anticoagulation Clinic Pharmacy Anticoagulation Clinic Pager: [phone]. [facility] Miscellaneous Notes* Telephone Encounter - Coretta Jalloh RPh - 10/14/2023 4:21 PM EDT [facility] Anticoagulation [facility] Anticoagulation Episode Summary Anticoagulation Care Providers Provider Role Specialty Phone number Stas Mora MD Referring Family Medicine [phone] Roby Flores is a 88 year old [...] ALLERGIES No Known Allergies Indication for Warfarin: 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 current use of anticoagulant Paroxysmal atrial fibrillation [...] Pharmacy Anticoagulation Clinic Pharmacy Anticoagulation Clinic Pager: [phone]. documented in this encounterRivers[facility] Hospital06-26-2024 Telephone encounter Note * Telephone Encounter - Colleen Sommer RPh - 09/16/2023 11:15 AM EDT [facility] Anticoagulation Episode Summary Anticoagulation Care Providers Provider Role Specialty Phone number Stas Mora MD Referring Family Medicine [phone] Roby Flores is a 88 year old [...] Pharmacy Anticoagulation Clinic Pharmacy Anticoagulation Clinic Pager: [phone]. [facility] Miscellaneous Notes* Telephone Encounter - Colleen Sommer RPh - 09/16/2023 11:15 AM EDT [facility] Antico[facility] Clinic Anticoagulation Episode Summary Anticoagulation Care Providers Provider Role Specialty Phone number Stas Mora MD Referring Family Medicine [phone] Roby Flores is a 88 year old [...] of 2.3 is therapeutic 09/14-seen by Dr. Moar for swelling of both legs. Started on [...] Pharmacy Anticoagulation Clinic Pharmacy Anticoagulation Clinic Pager: [phone]. documented in this encounterRiverside [facility] Hospital06-25-2024 Instructions* Patient Instructions* Rosie Cruz MA - 09/15/2023 8:48 AM EDT Starting Lasix (Furosemide) 20 mg once daily as needed. You can use the medication on days where swelling is increased. Elevate legs through out the day to help with swelling. Decrease sodium in diet. documented in this encounterRiverside [facility] Hospital06-25-2024 History of Present illness Narrative* [...] Coronary atherosclerosis of unspecified type of vessel, tetlin or graft Coronary artery disease Other and [...] Histories independently gathered by the clinical it desktop support specialist and the remaining scribed note [...] AM. Rosie Cruz MA documented in this encounterRiverside [facility] Hospital06-24-2024 Telephone encounter Note * Telephone [...] difficulty breathing Protocols used: Leg Swelling and [id number] [facility]06-24-[facility]24 Miscellaneous Notes* Telephone Encounter [...] difficulty breathing Protocols used: Leg Swelling and [id number] * Telephone Encounter - Elana Valdes RN - 09/14/2023 2:52 PM EDT Called and left a voicemail for the Patient and on the Pts girlfriends phone to have the Pt call back and ask for a nurse to receive the providers message. We need more information about his bilateral leg swelling that he was scheduled for tomorrow. Elana Valdes RN documented in this encounterRiverside [facility] Hospital06-24-2024 Telephone encounter Note * Telephone [...] was scheduled for tomorrow. Elana Valdes, RN [facility]06-12-2024 Telephone encounter Note* Telephone Encounter - Coretta Jalloh, [facility] - 09/02/2023 3:08 PM EDT [facility]acy Anticoagulation Clinic Anticoagulation Episode Summary Anticoagulation Care Providers Provider Role Specialty Phone number Stas Mora MD Referring Family Medicine [phone] Roby Flores is a 88 year old [...] ALLERGIES No Known Allergies Indication for Warfarin: prison current use of anticoagulant Paroxysmal atrial fibrillation [...] Pharmacy Anticoagulation Clinic Pharmacy Anticoagulation Clinic Pager: [phone]. [facility]06[facility] Miscellaneous Notes* Telephone Encounter - Coretta Jalloh RPh - 09/02/2023 3:08 PM EDT [facility] Antico[facility] Anticoagulation Episode Summary Anticoagulation Care Providers Provider Role Specialty Phone number Stas Mora MD Referring Family Medicine [phone] Roby Flores is a 88 year old [...] ALLERGIES No Known Allergies Indication for Warfarin: prison current use of anticoagulant Paroxysmal atrial fibrillation [...] Pharmacy Anticoagulation Clinic Pharmacy Anticoagulation Clinic Pager: [phone]. documented in this encounterRiverside [facility] Hospital06-05-2024 Telephone encounter Note * Telephone Encounter - Coretta Jalloh RPh - 08/26/2023 5:03 PM EDT [facility] Anticoagulation Episode Summary Anticoagulation Care Providers Provider Role Specialty Phone number Stas Mora MD Referring Family Medicine [phone] Roby Flores is a 88 year old [...] ALLERGIES No Known Allergies Indication for Warfarin: 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 current use of anticoagulant Paroxysmal atrial fibrillation [...] Pharmacy Anticoagulation Clinic Pharmacy Anticoagulation Clinic Pager: [phone]. [facility] Miscellaneous Notes* Telephone Encounter - Coretta Jalloh RPh - 08/26/2023 5:03 PM EDT [facility] Anticoagulation Clinic Anticoagulation Episode Summary Anticoagulation Care Providers Provider Role Specialty Phone number Stas Mora MD Referring Family Medicine [phone] Roby Flores is a 88 year old [...] ALLERGIES No Known Allergies Indication for Warfarin: prison current use of anticoagulant Paroxysmal atrial fibrillation [...] Pharmacy Anticoagulation Clinic Pharmacy Anticoagulation Clinic Pager: [phone]. documented in this encounterRivers[facility] Hospital05-29-2024 Telephone encounter Note * Telephone Encounter - Coretta Jalloh RPh - 08/19/2023 5:09 PM EDT [facility] Anticoagulation Episode Summary Anticoagulation Care Providers Provider Role Specialty Phone number Stas Mora MD Referring Family Medicine [phone] Roby Flores is a 88 year old [...] Pharmacy Anticoagulation Clinic Pharmacy Anticoagulation Clinic Pager: [phone]. [facility]05-[facility] Miscellaneous Notes* Telephone Encounter - Coretta Jalloh RPh - 08/19/2023 5:09 PM EDT [facility] Anticoagulation Clinic Anticoagulation Episode Summary Anticoagulation Care Providers Provider Role Specialty Phone number Stas Mora MD Referring Family Medicine [phone] Roby Flores is a 88 year old [...] Pharmacy Anticoagulation Clinic Pharmacy Anticoagulation Clinic Pager: [phone]. documented in this encounterRiverside [facility] Hospital05-24-2024 History of Present illness Narrative* [...] thinks he is being sued by a sikhism and thathe was given a letter about it, doesn't know who the social sciences research scientist is or where the sikhism is. states this is not true. He was looking for his brother who lives out of state, thought he was still staying with them, however he has not been up to [place] since Jan. No hallucinations. Is not leaving [...] Coronary atherosclerosis of unspecified type of vessel, tetlin or graft Coronary artery disease Other and [...] Histories independently gathered by the clinical it desktop support specialist and the remaining scribed note [...] AM. Marta Palacio MA documented in this encounterRiverside [facility] Hospital05-22-2024 Telephone encounter Note * Telephone Encounter - Coretta Jalloh, [facility] - 08/12/2023 4:27 PM EDT [facility] Anticoagulation Clinic Anticoagulation Episode Summary Anticoagulation Care Providers Provider Role Specialty Phone number Stas Mora MD Referring Family Medicine [phone] Roby Flores is a 87 year old [...] ALLERGIES No Known Allergies Indication for Warfarin: 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 current use of anticoagulant Paroxysmal atrial fibrillation [...] Pharmacy Anticoagulation Clinic Pharmacy Anticoagulation Clinic Pager: [phone]. [facility]05-[facility] Miscellaneous Notes* Telephone Encounter - Coretta Jalloh RPh - 08/12/2023 4:27 PM EDT [facility] Anticoagulation Clinic Anticoagulation Episode Summary Anticoagulation Care Providers Provider Role Specialty Phone number Stas Mora MD Referring Family Medicine [phone] Roby Flores is a 87 year old [...] ALLERGIES No Known Allergies Indication for Warfarin: prison current use of anticoagulant Paroxysmal atrial fibrillation [...] the plan. Patient denies need for refills. Coertta Jalloh RPh Clinical Pharmacist, Pharmacy Anticoagulation Clinic Pharmacy Anticoagulation Clinic Pager: [phone]. documented in this encounterRiverside [facility]05-15-2024 Telephone encounter Note * Telephone Encounter - Coretta Jalloh RPh - 08/05/2023 4:41 PM EDT [facility] Antico[facility] Anticoagulation Episode Summary Anticoagulation Care Providers Provider Role Specialty Phone number Stas Mora MD Referring Family Medicine [phone] Roby Flores is a 87 year old [...] ALLERGIES No Known Allergies Indication for Warfarin: prison current use of anticoagulant Paroxysmal atrial fibrillation [...] Pharmacy Anticoagulation Clinic Pharmacy Anticoagulation Clinic Pager: [phone]. [facility]05-[facility] Miscellaneous Notes* Telephone Encounter - Coretta Jalloh RPh - 08/05/2023 4:41 PM EDT [facility] Antico[facility] Anticoagulation Episode Summary Anticoagulation Care Providers Provider Role Specialty Phone number Stas Mora MD Referring Family Medicine [phone] Roby Flores is a 87 year old [...] ALLERGIES No Known Allergies Indication for Warfarin: 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 current use of anticoagulant Paroxysmal atrial fibrillation [...] Pharmacy Anticoagulation Clinic Pharmacy Anticoagulation Clinic Pager: [phone]. documented in this encounterR[facility]05-08-2024 Telephone encounter Note * Telephone Encounter - Elena Lopez RPh - 07/29/2023 3:21 PM EDT [facility] Anticoagulation [facility] Anticoagulation Episode Summary Anticoagulation Care Providers Provider Role Specialty Phone number Stas Mora MD Referring Family Medicine [phone] Roby Flores is a 87 year old [...] ALLERGIES No Known Allergies Indication for Warfarin: 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 current use of anticoagulant Paroxysmal atrial fibrillation [...] Pharmacy Anticoagulation Clinic Pharmacy Anticoagulation Clinic Pager: [phone]. [facility]05-08-2024 Miscellaneous Notes* Telephone Encounter - Elena Lopez RPh - 07/29/2023 3:21 PM EDT [facility] Anticoagulation Clinic Anticoagulation Episode Summary Anticoagulation Care Providers Provider Role Specialty Phone number Stas Mora MD Referring Family Medicine [phone] Roby Flores is a 87 year old [...] ALLERGIES No Known Allergies Indication for Warfarin: 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 current use of anticoagulant Paroxysmal atrial fibrillation [...] Patient denies need for refills. Elena Lopez [facility] Clinical Pharmacist, Pharmacy Anticoagulation Clinic Pharmacy Anticoagulation Clinic Pager: [phone]. documented in this encounterR[facility]05-01-2024 Telephone encounter Note * Telephone Encounter - Coretta Jalloh RP - 07/22/2023 4:40 PM EDT [facility] Antico[facility] Anticoagulation Episode Summary Anticoagulation Care Providers Provider Role Specialty Phone number Stas Mora MD Referring Family Medicine [phone] Roby Flores is a 87 year old [...] ALLERGIES No Known Allergies Indication for Warfarin: prison current use of anticoagulant Paroxysmal atrial fibrillation [...] Pharmacy Anticoagulation Clinic Pharmacy Anticoagulation Clinic Pager: [phone]. [facility]05-01-[facility] Miscellaneous Notes* Telephone Encounter - Coretta Jalloh RPh - 07/22/2023 4:40 PM EDT [facility] Anticoagulation Clinic Anticoagulation Episode Summary Anticoagulation Care Providers Provider Role Specialty Phone number Stas Mora MD Referring Family Medicine [phone] Roby Flores is a 87 year old [...] ALLERGIES No Known Allergies Indication for Warfarin: 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 current use of anticoagulant Paroxysmal atrial fibrillation [...] Pharmacy Anticoagulation Clinic Pharmacy Anticoagulation Clinic Pager: [phone]. documented in this encounterR[facility]04-[facility]24 Telephone encounter Note * Telephone Encounter - Coretta Jalloh RPh - 07/15/2023 3:18 PM EDT [facility] Anticoagulation Episode Summary Anticoagulation Care Providers Provider Role Specialty Phone number Stas Mora MD Referring Family Medicine [phone] Roby Flores is a 87 year old [...] ALLERGIES No Known Allergies Indication for Warfarin: 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 current use of anticoagulant Paroxysmal atrial fibrillation [...] Patient denies need for refills. Coretta Jalloh [facility] Clinical Pharmacist, Pharmacy Anticoagulation Clinic Pharmacy Anticoagulation Clinic Pager: [phone]. [facility]04-24-2024 Miscellaneous Notes* Telephone Encounter - Coretta Jalloh RPh - 07/15/2023 3:18 PM EDT [facility] Anticoagulation Episode Summary Anticoagulation Care Providers Provider Role Specialty Phone number Stas Mora MD Referring Family Medicine [phone] Roby Flores is a 87 year old [...] ALLERGIES No Known Allergies Indication for Warfarin: prison current use of anticoagulant Paroxysmal atrial fibrillation [...] Pharmacy Anticoagulation Clinic Pharmacy Anticoagulation Clinic Pager: [phone]. documented in this encounterRiverside [facility] Hospital04-17-2024 Miscellaneous Notes* Telephone Encounter - Coretta Jalloh RPh - 07/08/2023 4:36 PM EDT [facility] Anticoagulation Episode Summary Anticoagulation Care Providers Provider Role Specialty Phone number Stas Mora MD Referring Family Medicine [phone] Roby Flores is a 87 year old [...] ALLERGIES No Known Allergies Indication for Warfarin: prison current use of anticoagulant Paroxysmal atrial fibrillation [...] Pharmacy Anticoagulation Clinic Pharmacy Anticoagulation Clinic Pager: [phone]. documented in this encounterRiverside [facility] Hospital04-10-2024 Miscellaneous Notes* Telephone Encounter - Coretta Jalloh RPh - 07/01/2023 5:20 PM EDT [facility] Anticoagulation Episode Summary Anticoagulation Care Providers Provider Role Specialty Phone number Stas Mora MD Referring Family Medicine [phone] Roby Flores is a 87 year old [...] ALLERGIES No Known Allergies Indication for Warfarin: 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 current use of anticoagulant Paroxysmal atrial fibrillation [...] Pharmacy Anticoagulation Clinic Pharmacy Anticoagulation Clinic Pager: [phone]. documented in this encounterRiverside [facility] Hospital04-04-2024 Telephone encounter Note * Telephone Encounter - Adrian (Corporate Sales Representative)Elana - 06/25/2023 5:14 PM EDT Images from [...] remains on Remote TM list. Elana Campbell (Corporate Sales Representative) [facility]04-04-2024 Miscellaneous Notes* Telephone Encounter - Adrian (Reveal)Elana - 06/25/2023 5:14 PM EDT Images from [...] remains on Remote TM list. Elana Campbell (Reveal) * Telephone Encounter - Stas Mora MD - 06/25/2023 4:44 PM EDT It looks like my office became involved because the on-call doctor was called with his elevated INR. I would prefer he stay with the pharmacy for his routine monitoring. Stas Mora MD * Telephone Encounter - Adrian (Reveal)Elana - 06/25/2023 4:03 PM EDT Pharm Phone [...] this time Please advise. Elana Campbell CPhT (Fixer Supervisor) Pharmacy Anticoagulation Clinic documented in this encounterRiverside [facility] Hospital04-04-2024 Telephone encounter Note * Telephone Encounter - Stas Mora MD - 06/25/2023 4:44 PM EDT It looks like my office became involved because the on-call doctor was called with his elevated INR. I would prefer he stay with the pharmacy for his routine monitoring. Stas Mora MD [facility]04-04-[facility]24 Telephone encounter Note* Telephone Encounter - Adrian HuangCorporate Sales RepresentativeElana Berry - 06/25/2023 4:03 PM EDT Pharm [...] this time Please advise. Elana Campbell CPhT (Fixer Supervisor) Pharmacy Anticoagulation Clinic [facility]04-03-2024 Miscellaneous Notes* Telephone Encounter [...] with VKA drugs, such as warfarin, the [employer] 2012 Guideline recommends [...] Chest 2012, 141:7S-47S Avel RA et al. [facility] 2017, 70: 252-289 Confirmed that pt is taking 1 mg daily. No changes to diet, medications, missed or extra doses, etc. Keke Tsang MA documented in this encounterRiverside [facility] Hospital03-22-2024 Miscellaneous Notes* Telephone Encounter - [...] no Rosie Cruz Ma documented in this encounterRiverside [facility] Hospital03-18-2024 Miscellaneous Notes* Telephone Encounter - [...] Information or narrative: no documented in this encounterRiverside [facility] Hospital03-15-2024 Miscellaneous Notes* Telephone Encounter - [...] went over notes below from Jenna Fitzpatrick MARKETING REGIONAL CONSULTANT. She said no change in his diet, [...] without answer. INR was 6.9. Jenna Fitzpatrick APRN.DATASTAGE CONSULTANT documented in this encounterRiverside Methodist Hospital03-15-2024 Miscellaneous Notes* Telephone Encounter - Marta Palacio MA - 06/05/2023 10:15 AM EDT See phone note 06/05/23 with Jenna Fitzpatrick. Marta Palacio MA * Telephone Encounter - Jasmin Bell MD - 06/04/2023 7:59 PM EDT Been trying to call patient at numbers give and goes straight to . Sending [id number] message in case will see that sooner. After multiple attempts, I called [facility]. They cannot call the patient but if the patient calls them, they will conference call with me. documented in this encounterRiverside Methodist Hospital03-15-2024 Miscellaneous Notes* Telephone Encounter - [...] message on daughter Anabella's mobile. Sent a [employer] message too. Called [facility] and the will conference call me if patient calls them. documented in this encounterRiverside Methodist Hospital03-14-2024 Miscellaneous Notes* Telephone Encounter - Hortencia Winston RN - 06/04/2023 8:[address] Bell has left messages for the patient to call back regarding a critical lab. documented in this encounterRiverside Methodist Hospital03-14-2024 Miscellaneous Notes* Telephone Encounter - [...] has any questions. Thank you. Jenna Fitzpatrick APRN.DATASTAGE CONSULTANT documented in this encounterRiverside Methodist Hospital03-13-2024 Miscellaneous Notes* Telephone Encounter - Coretta Jalloh [facility] - 06/03/2023 3:22 PM EDT [facility] Anticoagulation Episode Summary Anticoagulation Care Providers Provider Role Specialty Phone number Stas Mora MD Referring Family Medicine [phone] Roby Flores is a 87 year old [...] ALLERGIES No Known Allergies Indication for Warfarin: 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 current use of anticoagulant Paroxysmal atrial fibrillation [...] Pharmacy Anticoagulation Clinic Pharmacy Anticoagulation Clinic Pager: [phone]. documented in this encounterRiverside [facility] Hospital03-11-2024 History of Present illness Narrative* [...] Coronary atherosclerosis of unspecified type of vessel, tetlin or graft Coronary artery disease Other and [...] unspecified vessel or lesion type, unspecified whether tetlin or transplanted heart - ICD9: 414.00, ICD10: [...] Histories independently gathered by the clinical it desktop support specialist and the remaining scribed note [...] PM. Marta Palacio MA documented in this encounterRiverside [facility] Hospital03-06-2024 Miscellaneous Notes* Telephone Encounter - Coretta Jalloh [facility] - 05/27/2023 2:23 PM EST [facility] Anticoagulation Episode Summary Anticoagulation Care Providers Provider Role Specialty Phone number Stas Mora MD Referring [facility] [phone] Roby Flores is a 87 year old year old male patient being evaluated today for a [facility] Anticoagulation Episode Summary Anticoagulation Care Providers Provider Role Specialty Phone number Stas Mora MD Referring [facility] [phone] Roby Flores is a 87 year old [...] ALLERGIES No Known Allergies Indication for Warfarin: 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 current use of anticoagulant Paroxysmal atrial fibrillation [...] Pharmacy Anticoagulation Clinic Pharmacy Anticoagulation Clinic Pager: [phone]. documented in this encounterRiverside Methodist Hospital02-28-2024 Miscellaneous Notes* Telephone Encounter - Coretta Jalloh RPh - 05/20/2023 2:36 PM EST [facility] Anticoagulation Episode Summary Anticoagulation Care Providers Provider Role Specialty Phone number Stas Mora MD Referring Family Medicine [phone] Roby Flores is a 87 year old [...] ALLERGIES No Known Allergies Indication for Warfarin: prison current use of anticoagulant Paroxysmal atrial fibrillation [...] Pharmacy Anticoagulation Clinic Pharmacy Anticoagulation Clinic Pager: [phone]. documented in this encounterRiverside Methodist Hospital02-21-2024 Miscellaneous Notes* Telephone Encounter - Senia Phillips RPh - 05/13/2023 4:06 PM EST [facility] Anticoagulation Episode Summary Anticoagulation Care Providers Provider Role Specialty Phone number Stas Mora MD Referring Family Medicine [phone] Roby Flores is a 87 year old [...] ALLERGIES No Known Allergies Indication for Warfarin: prison current use of anticoagulant Paroxysmal atrial fibrillation [...] Pharmacy Anticoagulation Clinic Pharmacy Anticoagulation Clinic Pager: [phone]. documented in this encounterRiverside Methodist Hospital02-14-2024 Miscellaneous Notes* Telephone Encounter - Coretta Jalloh RPh - 05/06/2023 3:14 PM EST [facility] Anticoagulation Episode Summary Anticoagulation Care Providers Provider Role Specialty Phone number Stas Mora MD Referring Family Medicine [phone] Roby Flores is a 87 year old [...] ALLERGIES No Known Allergies Indication for Warfarin: 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 current use of anticoagulant Paroxysmal atrial fibrillation [...] Pharmacy Anticoagulation Clinic Pharmacy Anticoagulation Clinic Pager: [phone]. documented in this encounterRiverside Methodist Hospital02-07-2024 Miscellaneous Notes* Telephone Encounter - Coretta Jalloh RPh - 04/29/2023 4:00 PM EST [facility] Anticoagulation Episode Summary Anticoagulation Care Providers Provider Role Specialty Phone number Stas Mora MD Referring Family Medicine [phone] Roby Flores is a 87 year old [...] ALLERGIES No Known Allergies Indication for Warfarin: 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 current use of anticoagulant Paroxysmal atrial fibrillation [...] INR check scheduled on 05/06/2023 Coretta Jalloh [facility] Clinical Pharmacist, Pharmacy Anticoagulation Clinic Pharmacy Anticoagulation Clinic Pager: [phone]. documented in this encounterRiverside Methodist Hospital12-01-2023 Miscellaneous Notes* Telephone Encounter - Albaro Paredesdong Brady [facility] - 02/20/2023 3:37 PM EST [facility] Anticoagulation Episode Summary Anticoagulation Care Providers Provider Role Specialty Phone number Stas Mora MD Referring Family Medicine [phone] Roby Flores is a 87 year old [...] ALLERGIES No Known Allergies Indication for Warfarin: 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 current use of anticoagulant Paroxysmal atrial fibrillation [...] Patient denies need for refills. Elise Paredes [facility] Clinical Pharmacist, Pharmacy Anticoagulation Clinic Pharmacy Anticoagulation Clinic Pager: [phone]. documented in this encounterRiverside Methodist Hospital11-28-2023 Miscellaneous Notes* Telephone Encounter - [...] evaluation Stas Mora MD documented in this encounterRiverside Methodist Hospital11-28-2023 History of Present illness Narrative* [...] 17, 2023 7:43 AM documented in this encounterRiverside Methodist Hospital11-27-2023 History of Present illness Narrative* Stas Mora MD - 02/16/2023 2:00 PM EST Chief Complaint Patient presents with: ED Follow-up HPI Roby Flores is a 87 year old male who presents here today for ER Follow Up.. Pt went to the [facility] ER on 02/10/23 with c/o [...] Recheck in 1 week. Below copied from [employer]: Chief Complaint: Fatigue Informant: patient Onset/Context/Timing Onset: [...] Coronary atherosclerosis of unspecified type of vessel, tetlin or graft Coronary artery disease Other and [...] Completed Pneumococcal Vaccine: 65+ Completed Data reviewed [facility] ER reports 02/10/23 ASSESSMENT/PLAN: 1. [...] Histories independently gathered by the clinical it desktop support specialist and the remaining scribed note [...] PM. Marta Palacio Ma documented in this encounterRiverside Methodist Hospital11-24-2023 Miscellaneous Notes* Telephone Encounter - ReggieElise, [facility] - 02/13/2023 3:56 PM EST [facility] Anticoagulation Clinic Anticoagulation Episode Summary Anticoagulation Care Providers Provider Role Specialty Phone number Stas Mora MD Referring Family Medicine [phone] Roby Flores is a 87 year old [...] ALLERGIES No Known Allergies Indication for Warfarin: 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 current use of anticoagulant Paroxysmal atrial fibrillation [...] INR check scheduled on 02/20/2023 Elise Paredes [facility] Clinical Pharmacist, Pharmacy Anticoagulation Clinic Pharmacy Anticoagulation Clinic Pager: [phone]. documented in this encounterRiverside Methodist Hospital11-17-2023 Miscellaneous Notes* Telephone Encounter - Senia Phillips RPh - 02/06/2023 4:28 PM EST [facility] Antico[facility] Clinic Anticoagulation Episode Summary Anticoagulation Care Providers Provider Role Specialty Phone number Stas Mora MD Referring Family Medicine [phone] Roby Flores is a 87 year old [...] ALLERGIES No Known Allergies Indication for Warfarin: prison current use of anticoagulant Paroxysmal atrial fibrillation [...] Pharmacy Anticoagulation Clinic Pharmacy Anticoagulation Clinic Pager: [phone]. documented in this encounterRiverside Methodist Hospital10-06-2023 Miscellaneous Notes* Telephone Encounter - Senia Phillips RPh - 12/26/2022 3:04 PM EDT [facility] Antico[facility] Clinic Anticoagulation Episode Summary Anticoagulation Care Providers Provider Role Specialty Phone number Stas Mora MD Referring Family Medicine [phone] Roby Flores is a 87 year old [...] ALLERGIES No Known Allergies Indication for Warfarin: 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 current use of anticoagulant Paroxysmal atrial fibrillation (hcc) Anticoagulation Episode Summary Current INR goal: 2.0-3.0 Assessment: INR result of 2.5 is therapeutic Plan: Current Warfarin Dosing As of 12/26/2022 Full warfarin instructions: 2.5 mg every day Sent [employer] message Advised patient to continue current weekly dose as noted above Next lab INR check scheduled on 01/09/2023 Senia Phillips RPh Clinical Pharmacist, Pharmacy Anticoagulation Clinic Pharmacy Anticoagulation Clinic Pager: [phone]. documented in this encounterRiverside Methodist Hospital09-29-2023 Miscellaneous Notes* Telephone Encounter - Senia Phillips RPh - 12/19/2022 4:30 PM EDT [facility] Anticoagulation Episode Summary Anticoagulation Care Providers Provider Role Specialty Phone number Stas Mora MD Referring Family Medicine [phone] Roby Flores is a 87 year old [...] ALLERGIES No Known Allergies Indication for Warfarin: prison current use of anticoagulant Paroxysmal atrial fibrillation (hcc) Anticoagulation Episode Summary Current INR goal: 2.0-3.0 Assessment: INR result of 2.0 is therapeutic Plan: Current Warfarin Dosing As of 12/19/2022 Full warfarin instructions: 2.5 mg every day Sent [employer] message Advised patient to continue current weekly dose as noted above Next lab INR check scheduled on 01/02/2023 Senia Phillips RPh Clinical Pharmacist, Pharmacy Anticoagulation Clinic Pharmacy Anticoagulation Clinic Pager: [phone]. documented in this encounterRiverside Methodist Hospital09-22-2023 Miscellaneous Notes* Telephone Encounter - Senia Phillips RPh - 12/12/2022 4:01 PM EDT [facility] Anticoagulation Episode Summary Anticoagulation Care Providers Provider Role Specialty Phone number Stas Mora MD Referring Family Medicine [phone] Roby Flores is a 87 year old [...] ALLERGIES No Known Allergies Indication for Warfarin: 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 current use of anticoagulant Paroxysmal atrial fibrillation [...] Pharmacy Anticoagulation Clinic Pharmacy Anticoagulation Clinic Pager: [phone]. documented in this encounterRiverside Methodist Hospital09-01-2023 Miscellaneous Notes* Telephone Encounter - Jeimy Duong RPh - 11/21/2022 2:38 PM EDT [facility] Clinic Anticoagulation Episode Summary Anticoagulation Care Providers Provider Role Specialty Phone number Stas Mora MD Referring Family Medicine [phone] Roby Flores is a 87 year old [...] Pharmacy Anticoagulation Clinic Pharmacy Anticoagulation Clinic Pager: [phone]. documented in this encounterRiverside Methodist Hospital08-28-2023 Hospital Discharge instructions Patient Education [...] Wound changes colors Numbness around the wound 5037-[address] Issue[address] [place] [address]. All rights reserved. This information is not [...] the ears or bruising around the eyes 7204-[address] Issue[address] [place] [address]. All rights reserved. This information is not intended as a substitute for professional medical care. Always follow yourhealthcare professional's instructions. Follow Up Care 11/17/2022 15:05:08 With:Call Physician Referral Address:Unknown When:2-4 days [facility] 08-28-2023 Note Discharge Instructions Thank you for allowing [facility] to assist you with your healthcare needs. [...] Wound changes colors Numbness around the wound 1079-[address] Issue[address] [place] [address]. All rights reserved. This information is not [...] the ears or bruising around the eyes 3097-[address] Issue[address] [place] [address]. All rights reserved. This information is not intended as a substitute for professional medical care. Always follow yourhealthcare professional's instructions. Additional Information VACCINATE! IT SAVES LIVES! Members of the community who have not yet received the COVID-19 vaccine and would like to receive it can visit one of [facility] vaccine clinics. There are many vaccine clinic locations within the [facility]. For locations and available times, please visit [email or web address] It is important to note that some COVID mobile vaccine clinics are held outdoors and may be canceled in rainy or stormy conditions. To learn more about pediatric vaccinations (ages 5-11), we invite you to visit the [facility] webpage. [email or web address]/[email or web address] learn more about the COVID-19 vaccine, we invite you to visit the CDC website for a list of frequently asked questions. https://www.cdc.gov/coronavirus/2019-ncov/vaccines/faq.html [facility] Patient Portal Access Instructions: Stay connected with your healthcare team and access your personal medical information anytime with the [facility] Patient Portal. If you would like a full copy of your medical records please contact the [facility] Medical Records Department Thursday through Thursday between 8a.m. and 4:30p.m. Please follow the directions below to access the portal: 1.Access the email account you provided upon registration to the [facility].2.Look for an invitation email from [facility].3.Open the email and access the invitation link: Accept Invitation to [facility]4.Fill in the required العلي to create your account. Sign into www.[email or web address] with your username and password that you [...] you will allow to register on the [facility] Patient Portal for access to your information. You can also access the [facility] Patient Portal on the [employer] jonathon. Simply click on Health Records under [employer] and then click on the [employer] logo. HOW TO SAFELY DISPOSE OF PRESCRIPTION [...] Call your local pharmacy or go to [email or web address] to find one close to you.3.Make use of household items: Use cat litter or old coffee grounds to dispose medications if other options arenot available. Mix your drugs with these household products, seal them in an airtight container andthrow it into the garbage. Call [facility]: [phone] to be sure your drugs can be [...] aware that I should contact my doctor. 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 Signature: Date/Time: Relationship to Patient: Witness Name/Signature: Date/Time: [facility]08-28-2023 Note ORIGINAL EXAMINATION: CT OF THE [...] Date: 11/17/2022 4:26:20 PM Ordering Provider: STERLING [facility]08-18-2023 Miscellaneous Notes* Telephone Encounter - Denise Phillipsrachel [facility] - 11/07/2022 3:22 PM EDT [facility] Anticoagulation Clinic Anticoagulation Episode Summary Anticoagulation Care Providers Provider Role Specialty Phone number Stas Mora MD Referring Family Medicine [phone] Roby Flores is a 87 year old [...] ALLERGIES No Known Allergies Indication for Warfarin: 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 current use of anticoagulant Paroxysmal atrial fibrillation (hcc) Anticoagulation Episode Summary Current INR goal: 2.0-3.0 Assessment: INR result of 2.2 is therapeutic Plan: Current Warfarin Dosing As of 11/07/2022 Full warfarin instructions: 2.5 mg every day Sent [employer] message Advised patient to continue current weekly dose as noted above Next lab INR check scheduled on 11/21/2022 Senia Phillips RPh Clinical Pharmacist, Pharmacy Anticoagulation Clinic Pharmacy Anticoagulation Clinic Pager: [phone]. documented in this encounterRiverside [facility] Hospital08-11-2023 Miscellaneous Notes* Telephone Encounter - Senia Phillips RPh - 10/31/2022 2:29 PM EDT Patient due to test INR today. Will continue to monitor for results. Senia Phillips RPh documented in this encounterRiverside Methodist Hospital08-04-2023 Miscellaneous Notes* Telephone Encounter - Senia Phillips RPh - 10/24/2022 3:13 PM EDT [facility] Anticoagulation Episode Summary Anticoagulation Care Providers Provider Role Specialty Phone number Stas Mora MD Referring Family Medicine [phone] Roby Flores is a 87 year old [...] ALLERGIES No Known Allergies Indication for Warfarin: prison current use of anticoagulant Paroxysmal atrial fibrillation (hcc) Anticoagulation Episode Summary Current INR goal: 2.0-3.0 Assessment: INR result of 2.5 is therapeutic Plan: Current Warfarin Dosing As of 10/24/2022 Full warfarin instructions: 2.5 mg every day Sent [employer] message Advised patient to decrease total weekly regimen to better reflect overall dose given past few weeks Next lab INR check scheduled on 10/31/2022 Senia Phillips RPh Clinical Pharmacist, Pharmacy Anticoagulation Clinic Pharmacy Antico[facility] Pager: [phone]. documented in this encounterRiverside Methodist Hospital07-28-2023 Miscellaneous Notes* Telephone Encounter - [...] Anticoagulation TE call [facility] today [facility]. They spoke with pt at [phone] and gave pt instructions on what to do. Halina Castelan, RN documented in this encounterRiverside Methodist Hospital07-28-2023 Miscellaneous Notes* Telephone Encounter - Yomi Wills RPh - 10/17/2022 3:43 PM EDT [facility] Anticoagulation Episode Summary Anticoagulation Care Providers Provider Role Specialty Phone number Stas Mora MD Referring Family Medicine [phone] Roby Flores is a 87 year old [...] ALLERGIES No Known Allergies Indication for Warfarin: 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 current use of anticoagulant Paroxysmal atrial fibrillation [...] Pharmacy Anticoagulation Clinic Pharmacy Anticoagulation Clinic Pager: [phone]. documented in this encounterRiverside Methodist Hospital07-07-2023 Miscellaneous Notes* Telephone Encounter - Jeimy Duong RPh - 09/26/2022 2:11 PM EDT [facility] Anticoagulation Episode Summary Anticoagulation Care Providers Provider Role Specialty Phone number Stas Mora MD Referring Family Medicine [phone] Roby Flores is a 87 year old [...] Pharmacy Anticoagulation Clinic Pharmacy Anticoagulation Clinic Pager: [phone]. 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 documented in this encounterRiverside [facility] Hospital06-06-2023 Instructions* Patient Instructions* Marta Palacio Ma - 08/26/2022 1:36 PM EDT Please check your medications when you get home and make sure that your medications match our list. documented in this encounterRiverside Methodist Hospital06-06-2023 History of Present illness Narrative* Stas Mora MD - 08/26/2022 1:20 PM EDT Medical B eligibilty date 1999 Date of last exam 09/05/2021 PAST MEDICAL HISTORY Diagnosis Date Coronary atherosclerosis of unspecified type of vessel, tetlin or graft Coronary artery disease Other and [...] Histories independently gathered by the clinical it desktop support specialist and the remaining scribed note accurately describes my personal service to the patient. Stas Mora MD The documentation for this note was completed by Marta Palacio Ma acting as scribe for Stas Mora MD. August 26, 2022 1:17 PM. Marta Palacio Ma documented in this encounterRiverside [facility] Hospital06-02-2023 Miscellaneous Notes* Telephone Encounter - Senia Phillips [facility] - 08/22/2022 2:50 PM EDT [facility] Anticoagulation Episode Summary Anticoagulation Care Providers Provider Role Specialty Phone number Stas Mora MD Referring Family Medicine [phone] Royb Flores is a 87 year old year [...] ALLERGIES No Known Allergies Indication for Warfarin: 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 current use of anticoagulant Paroxysmal atrial fibrillation (hcc) Anticoagulation Episode Summary Current INR goal: 2.0-3.0 Assessment: INR result of 2.4 is therapeutic Plan: Current Warfarin Dosing As of 08/22/2022 Full warfarin instructions: 3.75 mg every Fri; 2.5 mg all other days Sent [employer] message Advised patient to continue current weekly dose as noted above Next lab INR check scheduled on 08/29/2022 Senia Phillips RPh Clinical Pharmacist, Pharmacy Anticoagulation Clinic Pharmacy Anticoagulation Clinic Pager: [phone]. documented in this encounterRiverside Methodist Hospital04-28-2023 Miscellaneous Notes* Telephone Encounter - Senia Phillips RPh - 07/18/2022 3:29 PM EDT [facility] Anticoagulation Episode Summary Anticoagulation Care Providers Provider Role Specialty Phone number Stas Mora MD Referring Family Medicine [phone] Roby Flores is a 86 year old [...] ALLERGIES No Known Allergies Indication for Warfarin: prison current use of anticoagulant Paroxysmal atrial fibrillation (hcc) Anticoagulation Episode Summary Current INR goal: 2.0-3.0 Assessment: INR result of 2.1 is therapeutic Plan: Current Warfarin Dosing As of 07/18/2022 Full warfarin instructions: 2.5 mg every day Sent [employer] message Advised patient to continue current weekly dose as noted above Next lab INR check scheduled on 08/01/2022 Senia Phillips RPh Clinical Pharmacist, Pharmacy Anticoagulation Clinic Pharmacy Anticoagulation Clinic Pager: [phone]. documented in this encounterRiverside [facility] Hospital04-14-2023 Miscellaneous Notes* Telephone Encounter - Lety Gandara RPh - 07/04/2022 3:46 PM EDT [facility] Anticoagulation Episode Summary Anticoagulation Care Providers Provider Role Specialty Phone number Stas Mora MD Referring Family Medicine [phone] Roby Flores is a 86 year old [...] ALLERGIES No Known Allergies Indication for Warfarin: prison current use of anticoagulant Paroxysmal atrial fibrillation [...] Pharmacy Anticoagulation Clinic Pharmacy Anticoagulation Clinic Pager: [phone]. documented in this encounterRiverside Methodist Hospital04-03-2023 Miscellaneous Notes* Telephone Encounter - [...] DAYS Elvis Kearney APRN.CNP documented in this encounterRiverside Methodist Hospital03-31-2023 Miscellaneous Notes* Telephone Encounter - Senia Phillips [facility] - 06/20/2022 4:46 PM EDT [facility] Anticoagulation Episode Summary Anticoagulation Care Providers Provider Role Specialty Phone number Stas Mora MD Referring Family Medicine [phone] Roby Flores is a 86 year old [...] ALLERGIES No Known Allergies Indication for Warfarin: 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 current use of anticoagulant Paroxysmal atrial fibrillation [...] Pharmacy Anticoagulation Clinic Pharmacy Anticoagulation Clinic Pager: [phone]. documented in this encounterRiverside [facility] Hospital03-17-2023 Miscellaneous Notes* Telephone Encounter - Senia Phillips RPh - 06/06/2022 4:18 PM EDT [facility] Anticoagulation Episode Summary Anticoagulation Care Providers Provider Role Specialty Phone number Stas Mora MD Referring Family Medicine [phone] Roby Flores is a 86 year old [...] ALLERGIES No Known Allergies Indication for Warfarin: prison current use of anticoagulant Paroxysmal atrial fibrillation (hcc) Anticoagulation Episode Summary Current INR goal: 2.0-3.0 Assessment: INR result of 2.6 is therapeutic Plan: Current Warfarin Dosing As of 06/06/2022 Full warfarin instructions: 2.5 mg every day Sent [employer] message Advised patient to continue current weekly dose as noted above Next lab INR check scheduled on 06/20/2022 Senia Phillips RPh Clinical Pharmacist, Pharmacy Anticoagulation Clinic Pharmacy Anticoagulation Clinic Pager: [phone]. documented in this encounterRiverside [facility] Hospital03-10-2023 Miscellaneous Notes* Telephone Encounter - Neeru Rice LPN - 05/30/2022 3:02 PM EST Pharmacists manage INR documented in this encounterRiverside Methodist Hospital03-02-2023 Miscellaneous Notes* Telephone Encounter - [...] you. Jenna Fitzpatrick APRN.SHEMAR documented in this encounterRiverside Methodist Hospital03-01-2023 Miscellaneous Notes* Telephone Encounter - [...] hip/leg 10. : na Protocols used: Hip [id number], Hip [id number]-[id number] documented in this encounterRiverside Methodist Hospital03-01-2023 Miscellaneous Notes* Telephone Encounter - Fani Grace RN - 05/21/2022 12:22 PM EST Patient disconnected during transferred, called multiple time with no answer. documented in this encounterRiverside Methodist Hospital02-27-2023 Miscellaneous Notes* Telephone Encounter - [...] instructions. Franca Cohen LPN documented in this encounterRiverside Methodist Hospital02-24-2023 Miscellaneous Notes* Telephone Encounter - Senia Phillips RPh - 05/16/2022 5:10 PM EST Patient due to test INR today. Will continue to monitor for results. Senia Phillips RPh documented in this encounterRiverside Methodist Hospital02-10-2023 Miscellaneous Notes* Telephone Encounter - Senia Phillips RPh - 05/02/2022 3:06 PM EST [facility] Anticoagulation Episode Summary Anticoagulation Care Providers Provider Role Specialty Phone number Stas Mora MD Referring Family Medicine [phone] Roby Flores is a 86 year old year old male patient being evaluated today for a Telemanagement visit. Patient is currently on the following anticoagulant(s) Warfarin. Labs PT INR (no units) Date Value 05/15/2021 2.3 04/17/2021 1.9 03/13/2021 Test sent to [facility]. INR (no units) Date Value 05/02/2022 2.1 [...] ALLERGIES No Known Allergies Indication for Warfarin: 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 current use of anticoagulant Paroxysmal atrial fibrillation (hcc) Anticoagulation Episode Summary Current INR goal: 2.0-3.0 Assessment: INR result of 2.1 is therapeutic Plan: Current Warfarin Dosing As of 05/02/2022 Full warfarin instructions: 2.5 mg every day Sent [employer] message Advised patient to continue current weekly dose as noted above Next lab INR check scheduled on 05/16/2022 Senia Phillips RPh Clinical Pharmacist, Pharmacy Anticoagulation Clinic Pharmacy Anticoagulation Clinic Pager: [phone]. documented in this encounterRiverside [facility] Hospital01-27-2023 Miscellaneous Notes* Telephone Encounter - Senia Phillips RPh - 04/18/2022 4:25 PM EST [facility] Anticoagulation Episode Summary Anticoagulation Care Providers Provider Role Specialty Phone number Stas Mora MD Referring Family Medicine [phone] Roby Flores is a 86 year old year old male patient being evaluated today for a Telemanagement visit. Patient is currently on the following anticoagulant(s) Warfarin. Labs PT INR (no units) Date Value 05/15/2021 2.3 04/17/2021 1.9 03/13/2021 Test sent to [facility]. INR (no units) Date Value 04/18/2022 2.4 [...] ALLERGIES No Known Allergies Indication for Warfarin: prison current use of anticoagulant Paroxysmal atrial fibrillation (hcc) Anticoagulation Episode Summary Current INR goal: 2.0-3.0 Assessment: INR result of 2.4 is therapeutic Plan: Current Warfarin Dosing As of 04/18/2022 Full warfarin instructions: 2.5 mg every day; Starting 04/18/2022 Sent [employer] message Advised patient to continue current weekly dose as noted above Next lab INR check scheduled on 05/02/2022 Senia Phillips RPh Clinical Pharmacist, Pharmacy Anticoagulation Clinic Pharmacy Anticoagulation Clinic Pager: [phone]. documented in this encounterRiverside [facility] Hospital01-13-2023 Miscellaneous Notes* Telephone Encounter - Elise Paredes RPh - 04/04/2022 4:09 PM EST [facility] Anticoagulation Episode Summary Anticoagulation Care Providers Provider Role Specialty Phone number Stas Mora MD Referring Family Medicine [phone] Roby Flores is a 86 year old year old male patient being evaluated today for a Lab INR. Patient is currently on the following anticoagulant(s) Warfarin. Labs PT INR (no units) Date Value 05/15/2021 2.3 04/17/2021 1.9 03/13/2021 Test sent to [facility]. INR (no units) Date Value 04/04/2022 3.3 [...] ALLERGIES No Known Allergies Indication for Warfarin: 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 current use of anticoagulant Paroxysmal atrial fibrillation [...] Pharmacy Anticoagulation Clinic Pharmacy Anticoagulation Clinic Pager: [phone]. documented in this encounterRiverside Methodist Hospital01-09-2023 Miscellaneous Notes* Telephone Encounter - Rosie Cruz Ma - 03/31/2022 5:12 PM EST Office received continuity of care paperwork from the [place] requesting pt's last OV, labs and Imm. PerPCP okay to fax back requested records. Faxed back to [facility] at F#: [phone]. Rosie Cruz Ma documented in this encounterRiverside Methodist Hospital12-30-2022 Miscellaneous Notes* Telephone Encounter - Carmelina Cruz [facility] - 03/21/2022 4:05 PM EST [facility] Anticoagulation Episode Summary Anticoagulation Care Providers Provider Role Specialty Phone number Stas Mora MD Referring Family Medicine [phone] Roby Flores is a 86 year old year old male patient being evaluated today for a Telemanagement visit. Patient is currently on the following anticoagulant(s) Warfarin. Labs PT INR (no units) Date Value 05/15/2021 2.3 04/17/2021 1.9 03/13/2021 Test sent to [facility]. INR (no units) Date Value 03/21/2022 2.9 [...] ALLERGIES No Known Allergies Indication for Warfarin: 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 current use of anticoagulant Paroxysmal atrial fibrillation (hcc) Anticoagulation Episode Summary Current INR goal: 2.0-3.0 Assessment: INR result of 2.9 is therapeutic Plan: Current Warfarin Dosing As of 03/21/2022 Full warfarin instructions: 2.5 mg every day; Starting 03/21/2022 Sent [employer] message Advised patient to continue current weekly dose as noted above Next home INR check scheduled on 04/04/2022 Carmelina Cruz RPh Clinical Pharmacist, Pharmacy Anticoagulation Clinic Pharmacy Anticoagulation Clinic Pager: [phone]. * Telephone Encounter - Carmelina Cruz RPh - 03/21/2022 3:12 PM EST Patient due to test INR today. Will continue to monitor for results. Carmelina Cruz RPh documented in this encounterRiverside Methodist Hospital12-02-2022 Miscellaneous Notes* Telephone Encounter - [...] whatever he wanted to. documented in this encounterRiverside Methodist Hospital10-31-2022 Miscellaneous Notes* Telephone Encounter - Paige Hickman RPh - 01/20/2022 3:55 PM EDT [facility] Anticoagulation Episode Summary Anticoagulation Care Providers Provider Role Specialty Phone number Stas Mora MD Referring Family Medicine [phone] Roby Flores is a 86 year old year old male patient being evaluated today for a Telemanagement visit. Patient is currently on the following anticoagulant(s) Warfarin. Labs PT INR (no units) Date Value 05/15/2021 2.3 04/17/2021 1.9 03/13/2021 Test sent to [facility]. INR (no units) Date Value 01/20/2022 1.7 [...] instructed to call [facility] at [phone] with any questionsor concerns. Paige Hickman RP Clinical Pharmacist, Pharmacy Anticoagulation Clinic Pharmacy Anticoagulation Clinic Pager: [phone] documented in this encounterRiverside Methodist Hospital10-28-2022 Miscellaneous Notes* Telephone Encounter - [...] the providers message. Sent information as a [employer] message as well. Elana Valdes, RN * [...] to contact patient with no answer at [phone]. Current dose of coumadin is: 2.5 mg every day . Previous INR (date and result): 01/03/22 2.4 documented in this encounterRiverside Methodist Hospital10-24-2022 Miscellaneous Notes* Telephone Encounter - [...] advise. López Mckenna LPN documented in this encounterRiverside Methodist Hospital10-14-2022 Miscellaneous Notes* Telephone Encounter - Senia Phillips RPh - 01/03/2022 4:11 PM EDT [facility] Anticoagulation Episode Summary Anticoagulation Care Providers Provider Role Specialty Phone number Stas Mora MD Referring Family Medicine [phone] Roby Flores is a 86 year old year old male patient being evaluated today for a Telemanagement visit. Patient is currently on the following anticoagulant(s) Warfarin. Labs PT INR (no units) Date Value 05/15/2021 2.3 04/17/2021 1.9 03/13/2021 Test sent to [facility]. INR (no units) Date Value 01/03/2022 2.4 [...] ALLERGIES No Known Allergies Indication for Warfarin: 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 current use of anticoagulant Paroxysmal atrial fibrillation (hcc) Anticoagulation Episode Summary Current INR goal: 2.0-3.0 Assessment: INR result of 2.4 is therapeutic Plan: Current Warfarin Dosing As of 01/03/2022 Full warfarin instructions: 2.5 mg every day Sent [employer] message Advised patient to continue current weekly dose as noted above Next lab INR check scheduled on 01/17/2022 Senia Phillips RPh Clinical Pharmacist, Pharmacy Anticoagulation Clinic Pharmacy Anticoagulation Clinic Pager: [phone]. documented in this encounterRiverside Methodist Hospital10-14-2022 Miscellaneous Notes* Telephone Encounter - Marta Palacio Ma - 01/03/2022 10:49 AM EDT Pt notified of results via [employer]. Marta Palacio Ma * Telephone Encounter - Stas Mora MD - 01/02/2022 6:07 PM EDT Please notify patient that his thyroid ultrasound looks OK, the nodules are all small, appear normal, and do not need any further evaluation pr follow up. Stas Mora MD documented in this encounterRiverside [facility] Hospital10-06-2022 History of Present illness Narrative* [...] about 1-2 hours. Pt was admitted to [facility] ER 12/21/21 with stroke sx [...] in the last year. Below copied from [facility] [employer]: HPI History of Present Illness Chief Complaint: [...] extremities. He has 5 out of 5 trackwalker strength bilaterally. Dorsi and plantar flexion intact. [...] Chronic anticoagulation: Status: Acute Code(s): Z79.01 - 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 (current) use of anticoagulants Medications at Discharge [...] symptoms resolved. Hospital Course: 1. TIA/paroxysmal A. [id number]-old male presented with right-sided weakness and aphasia, [...] Coronary atherosclerosis of unspecified type of vessel, tetlin or graft Coronary artery disease Other and [...] 12/06/2024 ADVANCE DIRECTIVE DISCUSSION Completed Data reviewed [facility] reports from 10/21/21-10/22/21 ASSESSMENT/PLAN: 1. [...] unspecified vessel or lesion type, unspecified whether tetlin or transplanted heart - ICD9: 414.00, ICD10: I25.10 Continue current medications. Follow up in Dec as scheduled with fasting labs prior. I agree with the Chief Complaint, ROS, and Past Histories independently gathered by the clinical it desktop support specialist and the remaining scribed note [...] AM. Marta Palacio Ma documented in this encounterRiverside Methodist Hospital09-30-2022 Miscellaneous Notes* Telephone Encounter - Senia Alan [facility] - 12/20/2021 4:39 PM EDT [facility] Anticoagulation Episode Summary Anticoagulation Care Providers Provider Role Specialty Phone number Stas Mora MD Referring Family Medicine [phone] Roby Flores is a 86 year old year old male patient being evaluated today for a Telemanagement visit. Patient is currently on the following anticoagulant(s) Warfarin. Labs PT INR (no units) Date Value 05/15/2021 2.3 04/17/2021 1.9 03/13/2021 Test sent to [facility]. INR (no units) Date Value 12/20/2021 2.1 [...] ALLERGIES No Known Allergies Indication for Warfarin: 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 current use of anticoagulant Paroxysmal atrial fibrillation (hcc) Anticoagulation Episode Summary Current INR goal: 2.0-3.0 Assessment: INR result of 2.1 is therapeutic Plan: Current Warfarin Dosing As of 12/20/2021 Full warfarin instructions: 2.5 mg every day Sent [employer] message Advised patient to continue current weekly dose as noted above Next lab INR check scheduled on 01/03/2022 Senia Phillips RPh Clinical Pharmacist, Pharmacy Anticoagulation Clinic Pharmacy Anticoagulation Clinic Pager: [phone]. documented in this encounterRiverside Methodist Hospital09-16-2022 Miscellaneous Notes* Telephone Encounter - Senia Phillips RPh - 12/06/2021 4:29 PM EDT [facility] Anticoagulation Episode Summary Anticoagulation Care Providers Provider Role Specialty Phone number Stas Mora MD Referring [facility] [phone] Roby Flores is a 86 year old year old male patient being evaluated today for a Telemanagement visit. Patient is currently on the following anticoagulant(s) Warfarin. Labs PT INR (no units) Date Value 05/15/2021 2.3 04/17/2021 1.9 03/13/2021 Test sent to [facility]. INR (no units) Date Value 12/06/2021 3.8 [...] ALLERGIES No Known Allergies Indication for Warfarin: prison current use of anticoagulant Paroxysmal atrial fibrillation [...] Pharmacy Anticoagulation Clinic Pharmacy Anticoagulation Clinic Pager: [phone]. documented in this encounterRiverside Methodist Hospital09-02-2022 Miscellaneous Notes* Telephone Encounter - Janice Huang RPh - 11/22/2021 5:17 PM EDT [facility] Anticoagulation Episode Summary Anticoagulation Care Providers Provider Role Specialty Phone number Stas Mora MD Referring [facility] [phone] Roby Flores is a 86 year old year old male patient being evaluated today for a Telemanagement visit. Patient is currently on the following anticoagulant(s) Warfarin. Labs PT INR (no units) Date Value 05/15/2021 2.3 04/17/2021 1.9 03/13/2021 Test sent to [facility]. INR (no units) Date Value 11/22/2021 2.4 [...] ALLERGIES No Known Allergies Indication for Warfarin: prison current use of anticoagulant Paroxysmal atrial fibrillation [...] Advised pt to Call Coumadin Clinic at [phone] to confirm dosing and follow-up Janice Huang RPh Clinical Pharmacist, Pharmacy Anticoagulation Clinic Pharmacy Anticoagulation Clinic Pager: [phone]. documented in this encounterRiverside Methodist Hospital08-19-2022 Miscellaneous Notes* Telephone Encounter - Senia Phillips RPh - 11/08/2021 5:01 PM EDT [facility] Anticoagulation Episode Summary Anticoagulation Care Providers Provider Role Specialty Phone number Stas Mora MD Referring [facility] [phone] Roby Flores is a 86 year old year old male patient being evaluated today for a Telemanagement visit. Patient is currently on the following anticoagulant(s) Warfarin. Labs PT INR (no units) Date Value 05/15/2021 2.3 04/17/2021 1.9 03/13/2021 Test sent to [facility]. INR (no units) Date Value 11/08/2021 2.8 [...] ALLERGIES No Known Allergies Indication for Warfarin: prison current use of anticoagulant Paroxysmal atrial fibrillation (hcc) Anticoagulation Episode Summary Current INR goal: 2.0-3.0 Assessment: INR result of 2.8 is therapeutic Plan: Current Warfarin Dosing As of 11/08/2021 Full warfarin instructions: 2.5 mg every day Sent [employer] message Advised patient to continue current weekly dose as noted above Next lab INR check scheduled on 11/22/2021 Senia Phillips RPh Clinical Pharmacist, Pharmacy Anticoagulation Clinic Pharmacy Anticoagulation Clinic Pager: [phone]. documented in this encounterRiverside Methodist Hospital08-05-2022 Miscellaneous Notes* Telephone Encounter - Janice Huang RPh - 10/25/2021 4:16 PM EDT [facility] Anticoagulation Episode Summary Anticoagulation Care Providers Provider Role Specialty Phone number Stas Mora MD Referring [facility] [phone] Roby Flores is a 86 year old year old male patient being evaluated today for a Telemanagement visit. Patient is currently on the following anticoagulant(s) Warfarin. Labs PT INR (no units) Date Value 05/15/2021 2.3 04/17/2021 1.9 03/13/2021 Test sent to [facility]. INR (no units) Date Value 10/25/2021 4.1 [...] ALLERGIES No Known Allergies Indication for Warfarin: prison current use of anticoagulant Paroxysmal atrial fibrillation [...] Patient denies need for refills. Janice Huang [facility] Clinical Pharmacist, Pharmacy Anticoagulation Clinic Pharmacy Anticoagulation Clinic Pager: [phone] . documented in this encounterR[facility]07-08-2022 Miscellaneous Notes* Telephone Encounter - Elana Campbell (Reveal) - 09/27/2021 4:50 PM EDT PATIENT CALL Patient called call center regarding results. Patient called and stated he had his INR checked today (09/27) and it was 2.3. Patient can be called at [phone] with any questions or sent MC message if result is within range. PT INR (no units) Date Value 05/15/2021 2.3 04/17/2021 1.9 03/13/2021 Test sent to [facility]. INR (no units) Date Value 09/27/2021 2.3 09/13/2021 2.7 08/30/2021 2.1 Elana Campbell (Reveal) * Telephone Encounter - Yomi Wills RPh - 09/27/2021 6:28 AM EDT Patient due to test INR today. Will continue to monitor for results. Yomi Wills RP documented in this encounterRiverside [facility] Hospital06-24-2022 Miscellaneous Notes* Telephone Encounter - Senia Phillips RPh - 09/13/2021 4:11 PM EDT [facility] Anticoagulation Episode Summary Anticoagulation Care Providers Provider Role Specialty Phone number Stas Mora MD Referring [facility] [phone] Roby Flores is a 86 year old year old male patient being evaluated today for a Telemanagement visit. Patient is currently on the following anticoagulant(s) Warfarin. Labs PT INR (no units) Date Value 05/15/2021 2.3 04/17/2021 1.9 03/13/2021 Test sent to [facility]. INR (no units) Date Value 09/13/2021 2.7 [...] ALLERGIES No Known Allergies Indication for Warfarin: prison current use of anticoagulant Paroxysmal atrial fibrillation (hcc) Anticoagulation Episode Summary Current INR goal: 2.0-3.0 Assessment: INR result of 2.7 is therapeutic Plan: Sent [employer] message Advised patient to continue current weekly dose Next lab INR check scheduled on 09/27/2021 Senia Phillips RPh Clinical Pharmacist, Pharmacy Anticoagulation Clinic Pharmacy Anticoagulation Clinic Pager: [phone] . documented in this encounterRiverside [facility] Hospital06-16-2022 History of Present illness Narrative* Stas Mora MD - 09/05/2021 11:20 AM EDT Medical B eligibilty date 1999 Date of last exam 08/28/2020 PAST MEDICAL HISTORY Diagnosis Date Coronary atherosclerosis of unspecified type of vessel, tetlin or graft Coronary artery disease Other and [...] [place] every 6 [place]. Pt follows with [facility] for Coumadin management. Pt denies [...] to remember the following three words: Banana, [place] and Chair Visuospatial/Executive Functioning: Clock drawin/2 (Normal [...] Histories independently gathered by the clinical it desktop support specialist and the remaining scribed note accurately describes my personal service to the patient. Stas Mora MD The documentation for this note was completed by Rosie Cruz Ma acting as scribe for Stas Mora MD. September 05, 2021 11:33 AM. Rosie Cruz Ma documented in this encounterRiverside [facility] Hospital06-10-2022 Miscellaneous Notes* Telephone Encounter - Senia Phillips [facility] - 08/30/2021 5:10 PM EDT [facility] Anticoagulation Episode Summary Anticoagulation Care Providers Provider Role Specialty Phone number Stas Mora MD Referring [facility] [phone] Roby Flores is a 86 year old year old male patient being evaluated today for a Telemanagement visit. Patient is currently on the following anticoagulant(s) Warfarin. Labs PT INR (no units) Date Value 05/15/2021 2.3 04/17/2021 1.9 03/13/2021 Test sent to [facility]. INR (no units) Date Value 08/30/2021 2.1 [...] ALLERGIES No Known Allergies Indication for Warfarin: 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 current use of anticoagulant Paroxysmal atrial fibrillation (hcc) Anticoagulation Episode Summary Current INR goal: 2.0-3.0 Assessment: INR result of 2.1 is therapeutic Plan: Sent [employer] message Advised patient to continue current weekly dose Next lab INR check scheduled on 09/13/2021 Senia Phillips RPh Clinical Pharmacist, Pharmacy Anticoagulation Clinic Pharmacy Anticoagulation Clinic Pager: [phone] . documented in this encounterRiverside [facility] Hospital06-10-2022 Miscellaneous Notes* Telephone Encounter - Jenna Fitzptarick APRN.CNP - 08/30/2021 8:56 AM EDT Needs order for PT/INR, order signed. Jenna Fitzpatrick APRN.CNP documented in this encounterRiverside Methodist Hospital05-27-2022 Miscellaneous Notes* Telephone Encounter - Rosie Cruz Ma - 08/16/2021 2:18 PM EDT INR has been reviewed in another encounter. Rosie Cruz Ma documented in this encounterRiverside [facility] Hospital05-13-2022 Miscellaneous Notes* Telephone Encounter - Senia Phillips RPh - 08/02/2021 4:11 PM EDT [facility] Anticoagulation Episode Summary Anticoagulation Care Providers Provider Role Specialty Phone number Stas Mora MD Referring [facility] [phone] Roby Flores is a 85 year old year old male patient being evaluated today for a Telemanagement visit. Patient is currently on the following anticoagulant(s) Warfarin. Labs PT INR (no units) Date Value 05/15/2021 2.3 04/17/2021 1.9 03/13/2021 Test sent to [facility]. INR (no units) Date Value 08/02/2021 3.2 [...] ALLERGIES No Known Allergies Indication for Warfarin: 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 current use of anticoagulant Paroxysmal atrial fibrillation [...] Pharmacy Anticoagulation Clinic Pharmacy Anticoagulation Clinic Pager: [phone] . documented in this encounterRiverside Methodist Hospital04-27-2022 Miscellaneous Notes* Telephone Encounter - [...] months Stas Mora MD documented in this encounterRiverside Methodist Hospital04-25-2022 Miscellaneous Notes* Telephone Encounter - Elvis Kearney APRN.CNP - 07/15/2021 12:39 PM EDT The following approved medication requests have been transmitted electronically. Pending Prescriptions Disp Refills WARFARIN 2.5 MG TABLET 135 tablet 3 Sig: TAKE 5 MG EVERY MON, DIXIE 2.5 MG ALL OTHER DAYS MESFIN: No Elvis Kearney APRN.CNP documented in this encounterRiverside Methodist Hospital04-18-2022 History of Present illness Narrative* [...] SOB. No swelling in feet orankles. No technical expert. Taking Fosinopril 10 mg daily. Lipid: Taking [...] Coronary atherosclerosis of unspecified type of vessel, tetlin or graft Coronary artery disease Other and [...] unspecified vessel or lesion type, unspecified whether tetlin or transplanted heart - ICD9: 414.00, ICD10: [...] Histories independently gathered by the clinical it desktop support specialist and the remaining scribed note [...] AM. Marta Palacio Ma documented in this encounterRiverside Methodist Hospital04-13-2022 Miscellaneous Notes* Telephone Encounter - Coretta Jalloh RPh - 07/03/2021 3:40 PM EDT [facility] Anticoagulation Episode Summary Anticoagulation Care Providers Provider Role Specialty Phone number Stas Mora MD Referring [facility] [phone] Roby Flores is a 85 year old year old male patient being evaluated today for a Lab INR. Patient is currently on the following anticoagulant(s) Warfarin. Labs PT INR (no units) Date Value 05/15/2021 2.3 04/17/2021 1.9 03/13/2021 Test sent to [facility]. INR (no units) Date Value 07/03/2021 4.5 06/12/2021 3.5 Creatinine (mg/dL) Date Value 03/13/2021 0.80 08/28/2020 0.83 Bilirubin, Total (mg/dL) Date Value 03/13/2021 0.5 ALT (U/L) Date Value 03/13/2021 24 AST (U/L) Date Value 03/13/2021 24 CrCl cannot be calculated (Unknown ideal weight.). ALLERGIES No Known Allergies Indication for Warfarin: 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 current use of anticoagulant Paroxysmal atrial fibrillation [...] Pharmacy Anticoagulation Clinic Pharmacy Anticoagulation Clinic Pager: [phone] . * Telephone Encounter - Marta Palacio Ma - 07/03/2021 3:05 PM EDT INR 4.5. Results routed to pharmacist who Handles pt coumadin. Marta Palacio Ma documented in this encounterRiverside Methodist Hospital03-23-2022 Miscellaneous Notes* Telephone Encounter - Coretta Jalloh RPh - 06/12/2021 3:20 PM EDT [facility] Anticoagulation Episode Summary Anticoagulation Care Providers Provider Role Specialty Phone number Stas Mora MD Referring [facility] [phone] Roby Flores is a 85 year old year old male patient being evaluated today for a Lab INR. Patient is currently on the following anticoagulant(s) Warfarin. Labs PT INR (no units) Date Value 05/15/2021 2.3 04/17/2021 1.9 03/13/2021 Test sent to [facility]. INR (no units) Date Value 06/12/2021 3.5 Creatinine (mg/dL) Date Value 03/13/2021 0.80 08/28/2020 0.83 Bilirubin, Total (mg/dL) Date Value 03/13/2021 0.5 ALT (U/L) Date Value 03/13/2021 24 AST (U/L) Date Value 03/13/2021 24 CrCl cannot be calculated (Unknown ideal weight.). ALLERGIES No Known Allergies Indication for Warfarin: prison current use of anticoagulant Paroxysmal atrial fibrillation (hcc) Anticoagulation Episode Summary Current INR goal: 2.0-3.0 Assessment: INR result of 3.5 is SUPRAtherapeutic due to: No obvious cause Plan: Called and spoke to patient/caregiver Advised patient to hold 1 dose then continue current regimen Next lab INR check scheduled on 07/03 in [place]. Patient verbalizes understanding of the plan. Patient denies need for refills. Coretta Jalloh RPh Clinical Pharmacist, Pharmacy Anticoagulation Clinic Pharmacy Anticoagulation Clinic Pager: [phone] . * Telephone Encounter - Rosie Cruz Maria E - 06/12/2021 3:08 PM EDT Pt's INR results have finalized. Routing to pharm to review and advise. Rosie Cruz Ma documented in this encounterRiverside Methodist Hospital12-21-2020 History of Present illness Narrative* [...] 12, 2020 5:01 PM documented in this encounterRiverside Methodist HospitalDischarge summary Author Inderjit Gillespie [facility] Note Date/Time September 01, 2024 10:2 5am [facility] Medical Records Department [address] [place] [address] Emergency Department Summary 09/01/24 MR#: [id number] Acct: [id number] Name: ROBY FLORES Rep #:[id number] : [...] shoulders elbows and wrist. He has normal trackwalker strength. Neurologically he is awake alert. Answering [...] 87.5 H Lymph % (Auto) 4.8 L [place] % (Auto) 5.7 Eos % (Auto) 1.2 [...] Clarity Clear Urine pH 8.0 Ur Specific [place]inebar 1.010 Urine Protein 15 H Urine Glucose [...] fracture or dislocation present. Reading Location: [facility] 09/01/24 09:05 IMPRESSION: Cerebral atrophy. Mucosal thickening of the ethmoid sinuses as well as opacification of the left maxillary sinus. Reading Location: [facility] Chest X-Ray 09/01/24 09:25 IMPRESSION: No acute abnormality is seen. Reading Location: [facility] Chest x-ray, 2 views, AP and [...] to thrive Disposition Disposition: Acute Care Hospital [facility] What to do if you have Problems For any increased pain, shortness of breath, bleeding, nausea or vomiting, chestpain, or any unexpected problems, contact your Primary Care Provider. Call [facility] ([phone]) or report to the closest Emergency Room. Call 911 if necessary. 09/01/24 1025 <Electronically signed by Inderjit Gillespie MD> Cosigner Signature (if applicable): CC: Dr. Stas Mora MD ~ Signed [facility] Work Phone: Evaluation + Plan note No data available for this section [facility] Evaluation note* Diagnosis prison current use of anticoagulant- Primary Long-term (current) use of anticoagulants Paroxysmal atrial fibrillation (HCC) Atrial fibrillation [facility]* 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 Long-term (current) use of anticoagulants Paroxysmal atrial fibrillation (HCC) Atrial fibrillation [facility]* Diagnosis Essential hypertension, benign- Primary Atherosclerosis 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, unspecified vessel or lesion type, unspecified whether tetlin or transplanted heart Paroxysmal atrial fibrillation (HCC) Atrial fibrillation Primary osteoarthritis of both knees Primary localized osteoarthrosis, lower leg documented in this encounter [facility]* Diagnosis Atherosclerosis 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, unspecified vessel or lesion type, unspecified whether tetlin or transplanted heart- Primary Essential hypertension, benign [facility]* 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 Long-term (current) use of anticoagulants Paroxysmal atrial fibrillation (HCC) Atrial fibrillation [facility]* Diagnosis Elevated INR- Primary Abnormal coagulation profile documented [facility]* 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 Long-term (current) use of anticoagulants Paroxysmal atrial fibrillation (HCC) Atrial fibrillation documented [facility] this encounter [facility]* Diagnosis Encounter for Medicare annual wellness exam- Primary Routine general medical examination at a [facility] facility Paroxysmal atrial fibrillation (HCC) Atrial fibrillation Essential hypertension, benign documented [facility] this encounter [facility]* 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 Long-term (current) use of anticoagulants Encounter for monitoring Coumadin therapy Encounter for therapeutic drug monitoring documented [facility] this encounter [facility]* 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 Long-term (current) use of anticoagulants Paroxysmal atrial fibrillation (HCC) Atrial fibrillation [facility]* Diagnosis prison current use of anticoagulant- Primary Long-term (current) use of anticoagulants Paroxysmal atrial fibrillation (HCC) Atrial fibrillation [facility]* Diagnosis Onset Date Resolution Status Chronic anticoagulation acut e TIA (transient ischemic attack) acute CAD (coronary artery disease) [facility] Work Phone: Evaluation note* Diagnosis Onset Date Resolution Status Chronic anticoagulation acut e Stroke-like symptoms acute TIA (transient ischemic attack) acute CAD (coronary artery disease) [facility] Work Phone: Evaluation note* Diagnosis Hospital discharge follow-up- Primary Other follow-up examination Encounter for immunization Need for other specified prophylactic vaccination against single bacterial disease TIA (transient ischemic attack) Unspecified transient cerebral ischemia Thyroid nodule Nontoxic uninodular goiter Essential hypertension, benign Paroxysmal atrial fibrillation (HCC) Atrial fibrillation Atherosclerosis 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, unspecified vessel or lesion type, unspecified whether tetlin or transplanted heart documented in this encounter [facility]* Diagnosis prison current use of anticoagulant- Primary Long-term (current) use of anticoagulants Paroxysmal atrial fibrillation (HCC) Atrial fibrillation [facility] this encounter [facility]* Diagnosis prison current use of anticoagulant- Primary Long-term (current) use of anticoagulants Paroxysmal atrial fibrillation (HCC) Atrial fibrillation [facility] this encounter [facility]* Diagnosis prison current use of anticoagulant- Primary Long-term (current) use of anticoagulants Paroxysmal atrial fibrillation (HCC) Atrial fibrillation [facility]* Diagnosis Encounter for Medicare annual wellness exam- Primary Routine general medical examination at a [facility] Paroxysmal atrial fibrillation (HCC) Atrial fibrillation Essential hypertension, benign Hyperlipidemia, unspecified hyperlipidemia type [facility]* 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 Long-term (current) use of anticoagulants Paroxysmal atrial fibrillation (HCC) Atrial fibrillation [facility] encounter [facility]* Diagnosis prison current use of anticoagulant- Primary Long-term (current) use of anticoagulants Paroxysmal atrial fibrillation (HCC) Atrial fibrillation [facility]* 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 Long-term (current) use of anticoagulants Paroxysmal atrial fibrillation (HCC) Atrial fibrillation [facility]* Diagnosis prison current use of anticoagulant- Primary Long-term (current) use of anticoagulants Paroxysmal atrial fibrillation (HCC) Atrial fibrillation documented in this encounter [facility] noteNo assessment information availableWSCCI Hospital [facility] Work Phone: Evaluation note* 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 Long-term (current) use of anticoagulants Paroxysmal atrial fibrillation (HCC) Atrial fibrillation documented [facility] this encounter [facility]* Diagnosis Cerebral infarction, unspecified mechanism (HCC)- Primary Generalized weakness Other malaise and fatigue Speech disturbance, unspecified type Hyperlipidemia, unspecified hyperlipidemia type Essential hypertension, benign Paroxysmal atrial fibrillation (HCC) Atrial fibrillation [facility]* Diagnosis Cerebral infarction, unspecified mechanism (HCC) documented in this encounter [facility]* Diagnosis prison current use of anticoagulant- Primary Long-term (current) use of anticoagulants Paroxysmal atrial fibrillation (HCC) Atrial fibrillation [facility]* Diagnosis Essential hypertension, benign- Primary Paroxysmal atrial fibrillation (HCC) Atrial fibrillation Atherosclerosis 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, unspecified vessel or lesion type, unspecified whether tetlin or transplanted heart Hyperlipidemia, unspecified hyperlipidemia type History of stroke with 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 Speech disturbance, unspecified type [facility]* Diagnosis Abnormal CBC- Primary Other abnormal blood chemistry [facility]* Diagnosis prison current use of anticoagulant- Primary Long-term (current) use of anticoagulants Paroxysmal atrial fibrillation (HCC) Atrial fibrillation [facility]* 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 Long-term (current) use of anticoagulants Paroxysmal atrial fibrillation (HCC) Atrial fibrillation [facility]* 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 Long-term (current) use of anticoagulants Paroxysmal atrial fibrillation (HCC) Atrial fibrillation [facility]* 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 Long-term (current) use of anticoagulants Paroxysmal atrial fibrillation (HCC) Atrial fibrillation [facility]* Diagnosis 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, psychotic disturbance, mood disturbance, or anxiety (HCC)- Primary Essential hypertension, benign Paroxysmal atrial fibrillation (HCC) Atrial fibrillation [facility]* Diagnosis Edema of both lower legs- Primary [facility]* Diagnosis prison current use of anticoagulant- Primary Long-term (current) use of anticoagulants Paroxysmal atrial fibrillation (HCC) Atrial fibrillation [facility]* 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 Long-term (current) use [...] abnormal blood chemistry documented in this encounter [facility] note* 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 Long-term (current) use of anticoagulants Paroxysmal atrial fibrillation (HCC) Atrial fibrillation documented in this encounter [facility] note* Diagnosis prison current use of anticoagulant- Primary Long-term (current) use of anticoagulants Paroxysmal atrial fibrillation (HCC) Atrial fibrillation [facility]* Diagnosis Left hip pain Pain in joint, pelvic region and thigh documented in this encounter [facility] note* Diagnosis prison current use of anticoagulant- Primary Long-term (current) use of anticoagulants Paroxysmal atrial fibrillation (HCC) Atrial fibrillation documented in this encounter [facility] note* Diagnosis Acute right-sided low back pain, unspecified whether sciatica present documented in this encounter [facility] note* Diagnosis Paroxysmal atrial fibrillation (HCC)- Primary Atrial fibrillation [facility]* Diagnosis prison current use of anticoagulant- Primary Long-term (current) use of anticoagulants Paroxysmal atrial fibrillation (HCC) Atrial fibrillation documented in this encounter [facility] note* Diagnosis prison current use of anticoagulant- Primary Long-term (current) use of anticoagulants Paroxysmal atrial fibrillation (HCC) Atrial fibrillation [facility]* Diagnosis Dementia, unspecified dementia severity, unspecified dementia type, unspecified whether behavioral, psychotic, or mood disturbance or anxiety (HCC)- Primary documented in this encounter [facility] note* Diagnosis prison current use of anticoagulant- Primary Long-term (current) use of anticoagulants Paroxysmal atrial fibrillation (HCC) Atrial fibrillation documented in this encounter [facility] note* Diagnosis Dementia, unspecified dementia severity, [...] and musculoskeletal systems [facility] Diagnosis Cognitive impairment, mild, so stated Mild cognitive impairment, so stated documented in this encounter [facility] note* Diagnosis Essential hypertension, benign- Primary Hyperlipidemia, unspecified hyperlipidemia type Atherosclerosis 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, unspecified vessel or lesion type, unspecified whether tetlin or transplanted heart Paroxysmal atrial fibrillation (HCC) Atrial fibrillation Edema of both lower legs History of stroke with 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 Dementia, unspecified dementia severity, unspecified dementia type, unspecified whether behavioral, psychotic, or mood disturbance or anxiety (HCC) documented in this encounter [facility] note* 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) Paralysis agitans documented in this encounter [facility] note* Diagnosis Bursitis of right elbow, unspecified bursa- Primary documented in this encounter [facility] note* Diagnosis Moderate dementia without behavioral disturbance, psychotic disturbance, mood disturbance, or anxiety, unspecified dementia type (HCC)- Primary Hallucinations Screening for depression Encounter for screening examination for other mental health and behavioral disorders documented in this encounter [facility] for referral (narrative)* Diagnostic Procedure Only (Routine) - Authorized Specialty Diagnoses / Procedures Referred By Jennifer gomez Referred To Contact US IMAGING Diagnoses Thyroid nodule Procedures US THYROID/PARATHYROID US SOFT TISSUE HEAD & NECK REAL TIME IMGE DOCM Stas Mora MD [address] [place] [address] Us Imaging Referral ID Status Reason Start Date Expiration Date Visits Requested Visits Authorized [id number] Authorized Auto-Generat ed Referral 12/26/2021 01/25/2023 1 1 [facility] for referral (narrative)* Diagnostic Procedure Only (Urgent) - Closed Specialty Diagnoses / Procedures Referred By Jennifer t Referred To Contact XR IMAGING Diagnoses Left hip pain Procedures XR HIP GENERAL 3V PELV/AP/LAT LEFT RADEX HIP UNILATERAL WITH PELVIS 2-3 VIEWS Jenna Fitzpatrick, [employer] [address] [place] [address] [place] [address] Referral ID Status Reason Start Date Expiration Date V isits Requested Visits Authorized [id number] Closed Auto-Generate d Referral 05/21/2022 06/20/2023 1 1 [facility] for referral (narrative)No reason for referral [facility]: Reason for visit Narrative* Diagnostic Procedure Only (Urgent) - Closed Specialty Diagnoses / Procedures Referred By Contac t Referred To Contact XR IMAGING Diagnoses Left hip pain Procedures XR HIP GENERAL 3V PELV/AP/LAT LEFT RADEX HIP UNILATERAL WITH PELVIS 2-3 VIEWS Jenna Fitzpatrick APRN.CNP [address] [place] [address] Xr Imaging [facility] Referral ID Status Reason Start Date Expiration Date V isits Requested Visits Authorized [id number] Closed Auto-Generate d Referral 05/21/2022 06/20/2023 1 1 [facility] for visit Narrative* MRI/CT (Routine) - Closed Specialty Diagnoses / Procedures Referred By Contac t Referred To Contact MR IMAGING Diagnoses Cognitive impairment, mild, so stated Procedures MRI BRAIN W QUANT WO IVCON MRI BRAIN BRAIN STEM W/O CONTRAST MATERIAL Luciana Cisneros MD [address] [place] [address] Phone: tel: fax: MR IMAGING [facility]95 Referral ID Status Reason Start Date Expiration Date V isits Requested Visits Authorized [id number] Closed Auto-Generate d Referral 05/11/2024 07/10/2024 1 1 [facility] Summary Purpose Family History No Family History Records Found Relationship Condition Age at Onset Recorded Date/T eav Unknown Family History?No pertinent history Unkno wn September 08, 2016 1:12pm Family History?No pertinent history Unkno wn September 08, 2016 1:12pm Relationship Condition Age at Onset Recorded Date/T eva Not Specified Alcoholism Unknown Advance Directives No Advanced Directives Records Found Advance Directive Response Recorded Date/ Time Living Will Yes December 21 6:17pm Power of Press Bucker Yes December 21 022 6:17pm Name of Medical Power of Press Bucker IRAJ HULL , DAUGHTER December 21, 2021 6:17pm Advance Directive Response Recorded Date/ Time Name of Medical Power of Press Bucker Anabella Hull December 21, 2021 8:06pm Living Will Yes December 21 8:06pm Power of Press Bucker Yes December 21, 022 8:06pm Advance Directive Response Recorded Date/ Time Living Will Yes February 10, 023 3:17pm Power of Press Bucker Yes February 10, 2023 3:17pm Name of Medical Power of Press Bucker daughter-yomi hull February 10, 2023 3:17pm Advance Directive Response Recorded Date/ Time Do you have a Healthcare Power of Press Bucker? Yes September 01, 2024 7:36am Name of Medical Power of Press Bucker anabella hull September 01, 2024 7:36am Advance Directive Response Recorded Date/ Time Do you have a Healthcare Power of Press Bucker? Yes September 01, 2024 12:00pm Name of Medical Power of Press Bucker anabella hull September 01, 2024 12:00pm Chief [...] LAB WORK September 28, 2024 5:00a m [facility] WORK September 29, 2024 5: 00am Admission H&P Exam September 30, 2024 5:50 pm [facility] WORK October 05, 2024 5: 00am [facility] WORK October 06, 2024 5: 00am [...] LAB WORK September 28, 2024 5:00a m [facility] LAB WORK September 29, 2024 5: 00am Admission H&P Exam September 30, 2024 5:50 pm [facility] LAB WORK October 05, 2024 5: 00am [facility] LAB WORK October 06, 2024 5: 00am [...] LAB WORK September 28, 2024 5:00a m [facility] LAB WORK September 29, 2024 5: 00am Admission H&P Exam September 30, 2024 5:50 pm [facility] LAB WORK October 05, 2024 5: 00am [facility] LAB WORK October 06, 2024 5: 00am [...] LAB WORK September 28, 2024 5:00a m [facility]RE[facility] LAB WORK September 29, 2024 5: 00am Admission H&P Exam September 30, 2024 5:50 pm [facility] LAB WORK October 05, 2024 5: 00am CORRECTION LAB WORK October 06, 2024 5: 00am [...] CONSULT TO PHYSICAL THERAPY PHYSICAL THERAPY EVALUATION [facility] 45 MINS Luciana Cisneros MD [facility] [place] [address] [facility] [place] [address] [place] [address] Referral ID Status Reason Start Date Expiration Date Visits Requested Visits Authorized [id number] Pending Review Auto-Generat ed Referral 04/27/2024 04/27/2025 1 1 Specialty Diagnoses / Procedures Referred By Contac t Referred To Contact MR IMAGING Diagnoses Cognitive impairment, mild, so stated Procedures MRI BRAIN W QUANT WO IVCON MRI BRAIN BRAIN STEM W/O CONTRAST MATERIAL Luciana Cisneros MD [facility] [place] [address] [place] [address] Referral ID Status Reason Start Date Expiration Date Visits Requested Visits Authorized [id number] Pending Review Auto-Generat ed Referral 04/27/2024 05/27/2025 1 1 Specialty Diagnoses / Procedures Referred By Contac t Referred To Contact Gerontology Diagnoses Dementia, unspecified dementia severity, unspecified dementia type, unspecified whether behavioral, psychotic, or mood disturbance or anxiety (HCC) Procedures CONSULT TO GERIATRICS OFFICE/OUTPATIENT [facility] MDM 60 MINUTES Stas Mora MD [address] [place] [id number] Referral ID Status Reason Start Date Expiration Date Visits Requested Visits Authorized [id number] Authorized PCP Requested Referral 04/25/2024 04/25/2025 1 1 Specialty Diagnoses / Procedures Referred By Contac t Referred To Contact MR IMAGING Diagnoses Cerebral infarction, unspecified mechanism (HCC) Procedures MRI BRAIN WO IVCON MRI BRAIN BRAIN STEM W/O CONTRAST MATERIAL Stas Mora MD [address] [place] [address] [place] [address] Referral ID Status Reason Start Date Expiration Date Visits Requested Visits Authorized [id number] Pending Review Auto-Genera eli Referral Patient Cleared - Admin/Chair man/Directo r advise to proceed or did not respond 3 03/17/2024 1 1 Additional Source Comments (unrecognized sect ion and content) No Status Records FoundNo Status Records FoundNo Status Records FoundNo Status Records FoundNo Status Records FoundNo Status Records FoundNo Status Records Found INFORMATION SOURCE (unrecogn ized section and content) DATE CREATED AUTHOR 09/11/2017 [facility] DATE CREATED AUTHOR AUTHOR'S ORGANIZ ATION [facility] DATE CREATED AUTHOR AUTHOR'S ORGANIZ ATION 09/15/2017 [facility] DATE CREATED AUTHOR AUTHOR'S ORGANIZ ATION 08/12/2023 [facility] ([place]) DATE CREATED AUTHOR AUTHOR'S ORGANIZ ATION 05/24/2024 [facility] DATE CREATED AUTHOR AUTHOR'S ORGANIZ ATION 11/27/2024 [facility] DATE CREATED AUTHOR AUTHOR'S ORGANIZ ATION 11/27/2024 [facility] Source Comments (unrecognize d section and content) In the event this informatio n is protected by the Federal Confidentiality of Alcohol and Drug Abuse Patient Records regulations: The Federal rules restrict any use of the information to criminally investigate or prosecute any alcohol or drug abuse patient.[facility] the event this information is protected by the Federal Confidentiality of Alcohol and Drug Abuse Patient Records regulations: The Federal rules restrict any use of the information to criminally investigate or prosecute any alcohol or drug abuse patient.[facility]In the event this information is protected by the Federal Confidentiality of Alcohol and Drug Abuse Patient Records regulations: The Federal rules restrict any use of the information to criminally investigate or prosecute any alcohol or drug abuse patient.[facility]In the event this information is protected by the Federal Confidentiality of Alcohol and Drug Abuse Patient Records regulations: The Federal rules restrict any use of the information to criminally investigate or prosecute any alcohol or drug abuse patient.[facility]In the event this information is protected by the Federal Confidentiality of Alcohol and Drug Abuse Patient Records regulations: The Federal rules restrict any use of the information to criminally investigate or prosecute any alcohol or drug abuse patient.[facility]In the event this information is protected by the Federal Confidentiality of Alcohol and Drug Abuse Patient Records regulations: The Federal rules restrict any use of the information to criminally investigate or prosecute any alcohol or drug abuse patient.[facility]In the event this information is protected by the Federal Confidentiality of Alcohol and Drug Abuse Patient Records regulations: The Federal rules restrict any use of the information to criminally investigate or prosecute any alcohol or drug abuse patient.[facility] HospitalIn the event this information is protected by the Federal Confidentiality of Alcohol and Drug Abuse Patient Records regulations: The Federal rules restrict any use of the information to criminally investigate or prosecute any alcohol or drug abuse patient.[facility]In the event this information is protected by the Federal Confidentiality of Alcohol and Drug Abuse Patient Records regulations: The Federal rules restrict any use of the information to criminally investigate or prosecute any alcohol or drug abuse patient.[facility]In the event this information is protected by the Federal Confidentiality of Alcohol and Drug Abuse Patient Records regulations: The Federal rules restrict any use of the information to criminally investigate or prosecute any alcohol or drug abuse patient.[facility] the event this information is protected by the Federal Confidentiality of Alcohol and Drug Abuse Patient Records regulations: The Federal rules restrict any use of the information to criminally investigate or prosecute any alcohol or drug abuse patient.[facility] HospitalIn the event this information is protected by the Federal Confidentiality of Alcohol and Drug Abuse Patient Records regulations: The Federal rules restrict any use of the information to criminally investigate or prosecute any alcohol or drug abuse patient.[facility] HospitalIn the event this information is protected by the Federal Confidentiality of Alcohol and Drug Abuse Patient Records regulations: The Federal rules restrict any use of the information to criminally investigate or prosecute any alcohol or drug abuse patient.[facility] HospitalIn the event this information is protected by the Federal Confidentiality of Alcohol and Drug Abuse Patient Records regulations: The Federal rules restrict any use of the information to criminally investigate or prosecute any alcohol or drug abuse patient.[facility] HospitalIn the event this information is protected by the Federal Confidentiality of Alcohol and Drug Abuse Patient Records regulations: The Federal rules restrict any use of the information to criminally investigate or prosecute any alcohol or drug abuse patient.[facility]In the event this information is protected by the Federal Confidentiality of Alcohol and Drug Abuse Patient Records regulations: The Federal rules restrict any use of the information to criminally investigate or prosecute any alcohol or drug abuse patient.[facility] HospitalIn the event this information is protected by the Federal Confidentiality of Alcohol and Drug Abuse Patient Records regulations: The Federal rules restrict any use of the information to criminally investigate or prosecute any alcohol or drug abuse patient.[facility] HospitalIn the event this information is protected by the Federal Confidentiality of Alcohol and Drug Abuse Patient Records regulations: The Federal rules restrict any use of the information to criminally investigate or prosecute any alcohol or drug abuse patient.[facility] HospitalIn the event this information is protected by the Federal Confidentiality of Alcohol and Drug Abuse Patient Records regulations: The Federal rules restrict any use of the information to criminally investigate or prosecute any alcohol or drug abuse patient.[facility] HospitalIn the event this information is protected by the Federal Confidentiality of Alcohol and Drug Abuse Patient Records regulations: The Federal rules restrict any use of the information to criminally investigate or prosecute any alcohol or drug abuse patient.[facility] HospitalIn the event this information is protected by the Federal Confidentiality of Alcohol and Drug Abuse Patient Records regulations: The Federal rules restrict any use of the information to criminally investigate or prosecute any alcohol or drug abuse patient.[facility] HospitalIn the event this information is protected by the Federal Confidentiality of Alcohol and Drug Abuse Patient Records regulations: The Federal rules restrict any use of the information to criminally investigate or prosecute any alcohol or drug abuse patient.[facility] HospitalIn the event this information is protected by the Federal Confidentiality of Alcohol and Drug Abuse Patient Records regulations: The Federal rules restrict any use of the information to criminally investigate or prosecute any alcohol or drug abuse patient.[facility] HospitalIn the event this information is protected by the Federal Confidentiality of Alcohol and Drug Abuse Patient Records regulations: The Federal rules restrict any use of the information to criminally investigate or prosecute any alcohol or drug abuse patient.[facility] HospitalIn the event this information is protected by the Federal Confidentiality of Alcohol and Drug Abuse Patient Records regulations: The Federal rules restrict any use of the information to criminally investigate or prosecute any alcohol or drug abuse patient.[facility] HospitalIn the event this information is protected by the Federal Confidentiality of Alcohol and Drug Abuse Patient Records regulations: The Federal rules restrict any use of the information to criminally investigate or prosecute any alcohol or drug abuse patient.[facility] HospitalIn the event this information is protected by the Federal Confidentiality of Alcohol and Drug Abuse Patient Records regulations: The Federal rules restrict any use of the information to criminally investigate or prosecute any alcohol or drug abuse patient.[facility] HospitalIn the event this information is protected by the Federal Confidentiality of Alcohol and Drug Abuse Patient Records regulations: The Federal rules restrict any use of the information to criminally investigate or prosecute any alcohol or drug abuse patient.[facility] HospitalIn the event this information is protected by the Federal Confidentiality of Alcohol and Drug Abuse Patient Records regulations: The Federal rules restrict any use of the information to criminally investigate or prosecute any alcohol or drug abuse patient.[facility] HospitalIn the event this information is protected by the Federal Confidentiality of Alcohol and Drug Abuse Patient Records regulations: The Federal rules restrict any use of the information to criminally investigate or prosecute any alcohol or drug abuse patient.[facility]In the event this information is protected by the Federal Confidentiality of Alcohol and Drug Abuse Patient Records regulations: The Federal rules restrict any use of the information to criminally investigate or prosecute any alcohol or drug abuse patient.[facility] HospitalIn the event this information is [...] or prosecute any alcohol or drug abuse patient.[facility] HospitalIn the event this information is protected by the Federal Confidentiality of Alcohol and Drug Abuse Patient Records regulations: The Federal rules restrict any use of the information to criminally investigate or prosecute any alcohol or drug abuse patient.[facility]In the event this information is protected by the Federal Confidentiality of Alcohol and Drug Abuse Patient Records regulations: The Federal rules restrict any use of the information to criminally investigate or prosecute any alcohol or drug abuse patient.[facility] HospitalIn the event this information is protected by the Federal Confidentiality of Alcohol and Drug Abuse Patient Records regulations: The Federal rules restrict any use of the information to criminally investigate or prosecute any alcohol or drug abuse patient.[facility] HospitalIn the event this information is protected by the Federal Confidentiality of Alcohol and Drug Abuse Patient Records regulations: The Federal rules restrict any use of the information to criminally investigate or prosecute any alcohol or drug abuse patient.[facility] HospitalIn the event this information is protected by the Federal Confidentiality of Alcohol and Drug Abuse Patient Records regulations: The Federal rules restrict any use of the information to criminally investigate or prosecute any alcohol or drug abuse patient.[facility] HospitalIn the event this information is protected by the Federal Confidentiality of Alcohol and Drug Abuse Patient Records regulations: The Federal rules restrict any use of the information to criminally investigate or prosecute any alcohol or drug abuse patient.[facility] HospitalIn the event this information is protected by the Federal Confidentiality of Alcohol and Drug Abuse Patient Records regulations: The Federal rules restrict any use of the information to criminally investigate or prosecute any alcohol or drug abuse patient.[facility] HospitalIn the event this information is protected by the Federal Confidentiality of Alcohol and Drug Abuse Patient Records regulations: The Federal rules restrict any use of the information to criminally investigate or prosecute any alcohol or drug abuse patient.[facility] HospitalIn the event this information is protected by the Federal Confidentiality of Alcohol and Drug Abuse Patient Records regulations: The Federal rules restrict any use of the information to criminally investigate or prosecute any alcohol or drug abuse patient.[facility] HospitalIn the event this information is protected by the Federal Confidentiality of Alcohol and Drug Abuse Patient Records regulations: The Federal rules restrict any use of the information to criminally investigate or prosecute any alcohol or drug abuse patient.[facility] HospitalIn the event this information is protected by the Federal Confidentiality of Alcohol and Drug Abuse Patient Records regulations: The Federal rules restrict any use of the information to criminally investigate or prosecute any alcohol or drug abuse patient.[facility] HospitalIn the event this information is protected by the Federal Confidentiality of Alcohol and Drug Abuse Patient Records regulations: The Federal rules restrict any use of the information to criminally investigate or prosecute any alcohol or drug abuse patient.[facility] HospitalIn the event this information is protected by the Federal Confidentiality of Alcohol and Drug Abuse Patient Records regulations: The Federal rules restrict any use of the information to criminally investigate or prosecute any alcohol or drug abuse patient.[facility] HospitalIn the event this information is protected by the Federal Confidentiality of Alcohol and Drug Abuse Patient Records regulations: The Federal rules restrict any use of the information to criminally investigate or prosecute any alcohol or drug abuse patient.[facility] HospitalIn the event this information is protected by the Federal Confidentiality of Alcohol and Drug Abuse Patient Records regulations: The Federal rules restrict any use of the information to criminally investigate or prosecute any alcohol or drug abuse patient.[facility] HospitalIn the event this information is protected by the Federal Confidentiality of Alcohol and Drug Abuse Patient Records regulations: The Federal rules restrict any use of the information to criminally investigate or prosecute any alcohol or drug abuse patient.[facility] HospitalIn the event this information is protected by the Federal Confidentiality of Alcohol and Drug Abuse Patient Records regulations: The Federal rules restrict any use of the information to criminally investigate or prosecute any alcohol or drug abuse patient.[facility] HospitalIn the event this information is protected by the Federal Confidentiality of Alcohol and Drug Abuse Patient Records regulations: The Federal rules restrict any use of the information to criminally investigate or prosecute any alcohol or drug abuse patient.[facility] HospitalIn the event this information is protected by the Federal Confidentiality of Alcohol and Drug Abuse Patient Records regulations: The Federal rules restrict any use of the information to criminally investigate or prosecute any alcohol or drug abuse patient.[facility] HospitalIn the event this information is protected by the Federal Confidentiality of Alcohol and Drug Abuse Patient Records regulations: The Federal rules restrict any use of the information to criminally investigate or prosecute any alcohol or drug abuse patient.[facility] HospitalIn the event this information is protected by the Federal Confidentiality of Alcohol and Drug Abuse Patient Records regulations: The Federal rules restrict any use of the information to criminally investigate or prosecute any alcohol or drug abuse patient.[facility] HospitalIn the event this information is protected by the Federal Confidentiality of Alcohol and Drug Abuse Patient Records regulations: The Federal rules restrict any use of the information to criminally investigate or prosecute any alcohol or drug abuse patient.[facility] HospitalIn the event this information is protected by the Federal Confidentiality of Alcohol and Drug Abuse Patient Records regulations: The Federal rules restrict any use of the information to criminally investigate or prosecute any alcohol or drug abuse patient.[facility] HospitalIn the event this information is protected by the Federal Confidentiality of Alcohol and Drug Abuse Patient Records regulations: The Federal rules restrict any use of the information to criminally investigate or prosecute any alcohol or drug abuse patient.[facility] HospitalIn the event this information is protected by the Federal Confidentiality of Alcohol and Drug Abuse Patient Records regulations: The Federal rules restrict any use of the information to criminally investigate or prosecute any alcohol or drug abuse patient.[facility] HospitalIn the event this information is protected by the Federal Confidentiality of Alcohol and Drug Abuse Patient Records regulations: The Federal rules restrict any use of the information to criminally investigate or prosecute any alcohol or drug abuse patient.[facility] HospitalIn the event this information is protected by the Federal Confidentiality of Alcohol and Drug Abuse Patient Records regulations: The Federal rules restrict any use of the information to criminally investigate or prosecute any alcohol or drug abuse patient.[facility] HospitalIn the event this information is protected by the Federal Confidentiality of Alcohol and Drug Abuse Patient Records regulations: The Federal rules restrict any use of the information to criminally investigate or prosecute any alcohol or drug abuse patient.[facility] HospitalIn the event this information is protected by the Federal Confidentiality of Alcohol and Drug Abuse Patient Records regulations: The Federal rules restrict any use of the information to criminally investigate or prosecute any alcohol or drug abuse patient.[facility] HospitalIn the event this information is protected by the Federal Confidentiality of Alcohol and Drug Abuse Patient Records regulations: The Federal rules restrict any use of the information to criminally investigate or prosecute any alcohol or drug abuse patient.[facility] HospitalIn the event this information is protected by the Federal Confidentiality of Alcohol and Drug Abuse Patient Records regulations: The Federal rules restrict any use of the information to criminally investigate or prosecute any alcohol or drug abuse patient.[facility] HospitalIn the event this information is protected by the Federal Confidentiality of Alcohol and Drug Abuse Patient Records regulations: The Federal rules restrict any use of the information to criminally investigate or prosecute any alcohol or drug abuse patient.[facility] HospitalIn the event this information is protected by the Federal Confidentiality of Alcohol and Drug Abuse Patient Records regulations: The Federal rules restrict any use of the information to criminally investigate or prosecute any alcohol or drug abuse patient.[facility] HospitalIn the event this information is protected by the Federal Confidentiality of Alcohol and Drug Abuse Patient Records regulations: The Federal rules restrict any use of the information to criminally investigate or prosecute any alcohol or drug abuse patient.[facility] HospitalIn the event this information is protected by the Federal Confidentiality of Alcohol and Drug Abuse Patient Records regulations: The Federal rules restrict any use of the information to criminally investigate or prosecute any alcohol or drug abuse patient.[facility] HospitalIn the event this information is protected by the Federal Confidentiality of Alcohol and Drug Abuse Patient Records regulations: The Federal rules restrict any use of the information to criminally investigate or prosecute any alcohol or drug abuse patient.[facility] HospitalIn the event this information is protected by the Federal Confidentiality of Alcohol and Drug Abuse Patient Records regulations: The Federal rules restrict any use of the information to criminally investigate or prosecute any alcohol or drug abuse patient.[facility] HospitalIn the event this information is protected by the Federal Confidentiality of Alcohol and Drug Abuse Patient Records regulations: The Federal rules restrict any use of the information to criminally investigate or prosecute any alcohol or drug abuse patient.[facility] HospitalIn the event this information is protected by the Federal Confidentiality of Alcohol and Drug Abuse Patient Records regulations: The Federal rules restrict any use of the information to criminally investigate or prosecute any alcohol or drug abuse patient.[facility] HospitalIn the event this information is protected by the Federal Confidentiality of Alcohol and Drug Abuse Patient Records regulations: The Federal rules restrict any use of the information to criminally investigate or prosecute any alcohol or drug abuse patient.[facility] HospitalIn the event this information is protected by the Federal Confidentiality of Alcohol and Drug Abuse Patient Records regulations: The Federal rules restrict any use of the information to criminally investigate or prosecute any alcohol or drug abuse patient.[facility] HospitalIn the event this information is protected by the Federal Confidentiality of Alcohol and Drug Abuse Patient Records regulations: The Federal rules restrict any use of the information to criminally investigate or prosecute any alcohol or drug abuse patient.[facility] HospitalIn the event this information is protected by the Federal Confidentiality of Alcohol and Drug Abuse Patient Records regulations: The Federal rules restrict any use of the information to criminally investigate or prosecute any alcohol or drug abuse patient.[facility] HospitalIn the event this information is protected by the Federal Confidentiality of Alcohol and Drug Abuse Patient Records regulations: The Federal rules restrict any use of the information to criminally investigate or prosecute any alcohol or drug abuse patient.[facility] HospitalIn the event this information is protected by the Federal Confidentiality of Alcohol and Drug Abuse Patient Records regulations: The Federal rules restrict any use of the information to criminally investigate or prosecute any alcohol or drug abuse patient.[facility] HospitalIn the event this information is protected by the Federal Confidentiality of Alcohol and Drug Abuse Patient Records regulations: The Federal rules restrict any use of the information to criminally investigate or prosecute any alcohol or drug abuse patient.[facility] HospitalIn the event this information is protected by the Federal Confidentiality of Alcohol and Drug Abuse Patient Records regulations: The Federal rules restrict any use of the information to criminally investigate or prosecute any alcohol or drug abuse patient.[facility] HospitalIn the event this information is protected by the Federal Confidentiality of Alcohol and Drug Abuse Patient Records regulations: The Federal rules restrict any use of the information to criminally investigate or prosecute any alcohol or drug abuse patient.[facility] HospitalIn the event this information is [...] or prosecute any alcohol or drug abuse patient.[facility] HospitalIn the event this information is protected by the Federal Confidentiality of Alcohol and Drug Abuse Patient Records regulations: The Federal rules restrict any use of the information to criminally investigate or prosecute any alcohol or drug abuse patient.[facility] HospitalIn the event this information is protected by the Federal Confidentiality of Alcohol and Drug Abuse Patient Records regulations: The Federal rules restrict any use of the information to criminally investigate or prosecute any alcohol or drug abuse patient.[facility] HospitalIn the event this information is protected by the Federal Confidentiality of Alcohol and Drug Abuse Patient Records regulations: The Federal rules restrict any use of the information to criminally investigate or prosecute any alcohol or drug abuse patient.[facility] HospitalIn the event this information is protected by the Federal Confidentiality of Alcohol and Drug Abuse Patient Records regulations: The Federal rules restrict any use of the information to criminally investigate or prosecute any alcohol or drug abuse patient.[facility] HospitalIn the event this information is protected by the Federal Confidentiality of Alcohol and Drug Abuse Patient Records regulations: The Federal rules restrict any use of the information to criminally investigate or prosecute any alcohol or drug abuse patient.[facility] HospitalIn the event this information is protected by the Federal Confidentiality of Alcohol and Drug Abuse Patient Records regulations: The Federal rules restrict any use of the information to criminally investigate or prosecute any alcohol or drug abuse patient.[facility] HospitalIn the event this information is protected by the Federal Confidentiality of Alcohol and Drug Abuse Patient Records regulations: The Federal rules restrict any use of the information to criminally investigate or prosecute any alcohol or drug abuse patient.[facility] HospitalIn the event this information is protected by the Federal Confidentiality of Alcohol and Drug Abuse Patient Records regulations: The Federal rules restrict any use of the information to criminally investigate or prosecute any alcohol or drug abuse patient.[facility] HospitalIn the event this information is protected by the Federal Confidentiality of Alcohol and Drug Abuse Patient Records regulations: The Federal rules restrict any use of the information to criminally investigate or prosecute any alcohol or drug abuse patient.[facility] HospitalIn the event this information is protected by the Federal Confidentiality of Alcohol and Drug Abuse Patient Records regulations: The Federal rules restrict any use of the information to criminally investigate or prosecute any alcohol or drug abuse patient.[facility] HospitalIn the event this information is protected by the Federal Confidentiality of Alcohol and Drug Abuse Patient Records regulations: The Federal rules restrict any use of the information to criminally investigate or prosecute any alcohol or drug abuse patient.[facility] HospitalIn the event this information is protected by the Federal Confidentiality of Alcohol and Drug Abuse Patient Records regulations: The Federal rules restrict any use of the information to criminally investigate or prosecute any alcohol or drug abuse patient.[facility] HospitalIn the event this information is protected by the Federal Confidentiality of Alcohol and Drug Abuse Patient Records regulations: The Federal rules restrict any use of the information to criminally investigate or prosecute any alcohol or drug abuse patient.[facility] HospitalIn the event this information is protected by the Federal Confidentiality of Alcohol and Drug Abuse Patient Records regulations: The Federal rules restrict any use of the information to criminally investigate or prosecute any alcohol or drug abuse patient.[facility] HospitalIn the event this information is protected by the Federal Confidentiality of Alcohol and Drug Abuse Patient Records regulations: The Federal rules restrict any use of the information to criminally investigate or prosecute any alcohol or drug abuse patient.[facility] HospitalIn the event this information is protected by the Federal Confidentiality of Alcohol and Drug Abuse Patient Records regulations: The Federal rules restrict any use of the information to criminally investigate or prosecute any alcohol or drug abuse patient.[facility] HospitalIn the event this information is protected by the Federal Confidentiality of Alcohol and Drug Abuse Patient Records regulations: The Federal rules restrict any use of the information to criminally investigate or prosecute any alcohol or drug abuse patient.[facility] HospitalIn the event this information is protected by the Federal Confidentiality of Alcohol and Drug Abuse Patient Records regulations: The Federal rules restrict any use of the information to criminally investigate or prosecute any alcohol or drug abuse patient.[facility] HospitalIn the event this information is protected by the Federal Confidentiality of Alcohol and Drug Abuse Patient Records regulations: The Federal rules restrict any use of the information to criminally investigate or prosecute any alcohol or drug abuse patient.[facility] HospitalIn the event this information is protected by the Federal Confidentiality of Alcohol and Drug Abuse Patient Records regulations: The Federal rules restrict any use of the information to criminally investigate or prosecute any alcohol or drug abuse patient.[facility] HospitalIn the event this information is protected by the Federal Confidentiality of Alcohol and Drug Abuse Patient Records regulations: The Federal rules restrict any use of the information to criminally investigate or prosecute any alcohol or drug abuse patient.[facility] HospitalIn the event this information is protected by the Federal Confidentiality of Alcohol and Drug Abuse Patient Records regulations: The Federal rules restrict any use of the information to criminally investigate or prosecute any alcohol or drug abuse patient.[facility] HospitalIn the event this information is protected by the Federal Confidentiality of Alcohol and Drug Abuse Patient Records regulations: The Federal rules restrict any use of the information to criminally investigate or prosecute any alcohol or drug abuse patient.[facility] HospitalIn the event this information is protected by the Federal Confidentiality of Alcohol and Drug Abuse Patient Records regulations: The Federal rules restrict any use of the information to criminally investigate or prosecute any alcohol or drug abuse patient.[facility] HospitalIn the event this information is protected by the Federal Confidentiality of Alcohol and Drug Abuse Patient Records regulations: The Federal rules restrict any use of the information to criminally investigate or prosecute any alcohol or drug abuse patient.[facility] HospitalIn the event this information is protected by the Federal Confidentiality of Alcohol and Drug Abuse Patient Records regulations: The Federal rules restrict any use of the information to criminally investigate or prosecute any alcohol or drug abuse patient.[facility] HospitalIn the event this information is protected by the Federal Confidentiality of Alcohol and Drug Abuse Patient Records regulations: The Federal rules restrict any use of the information to criminally investigate or prosecute any alcohol or drug abuse patient.[facility] HospitalIn the event this information is protected by the Federal Confidentiality of Alcohol and Drug Abuse Patient Records regulations: The Federal rules restrict any use of the information to criminally investigate or prosecute any alcohol or drug abuse patient.[facility] HospitalIn the event this information is protected by the Federal Confidentiality of Alcohol and Drug Abuse Patient Records regulations: The Federal rules restrict any use of the information to criminally investigate or prosecute any alcohol or drug abuse patient.[facility] HospitalIn the event this information is protected by the Federal Confidentiality of Alcohol and Drug Abuse Patient Records regulations: The Federal rules restrict any use of the information to criminally investigate or prosecute any alcohol or drug abuse patient.[facility] HospitalIn the event this information is protected by the Federal Confidentiality of Alcohol and Drug Abuse Patient Records regulations: The Federal rules restrict any use of the information to criminally investigate or prosecute any alcohol or drug abuse patient.[facility] HospitalIn the event this information is protected by the Federal Confidentiality of Alcohol and Drug Abuse Patient Records regulations: The Federal rules restrict any use of the information to criminally investigate or prosecute any alcohol or drug abuse patient.[facility]In the event this information is protected by the Federal Confidentiality of Alcohol and Drug Abuse Patient Records regulations: The Federal rules restrict any use of the information to criminally investigate or prosecute any alcohol or drug abuse patient.[facility] HospitalIn the event this information is protected by the Federal Confidentiality of Alcohol and Drug Abuse Patient Records regulations: The Federal rules restrict any use of the information to criminally investigate or prosecute any alcohol or drug abuse patient.[facility] HospitalIn the event this information is protected by the Federal Confidentiality of Alcohol and Drug Abuse Patient Records regulations: The Federal rules restrict any use of the information to criminally investigate or prosecute any alcohol or drug abuse patient.[facility]In the event this information is protected by the Federal Confidentiality of Alcohol and Drug Abuse Patient Records regulations: The Federal rules restrict any use of the information to criminally investigate or prosecute any alcohol or drug abuse patient.[facility]In the event this information is protected by the Federal Confidentiality of Alcohol and Drug Abuse Patient Records regulations: The Federal rules restrict any use of the information to criminally investigate or prosecute any alcohol or drug abuse patient.[facility] HospitalIn the event this information is protected by the Federal Confidentiality of Alcohol and Drug Abuse Patient Records regulations: The Federal rules restrict any use of the information to criminally investigate or prosecute any alcohol or drug abuse patient.[facility] HospitalIn the event this information is protected by the Federal Confidentiality of Alcohol and Drug Abuse Patient Records regulations: The Federal rules restrict any use of the information to criminally investigate or prosecute any alcohol or drug abuse patient.[facility]In the event this information is protected by the Federal Confidentiality of Alcohol and Drug Abuse Patient Records regulations: The Federal rules restrict any use of the information to criminally investigate or prosecute any alcohol or drug abuse patient.[facility]In the event this information is protected by the Federal Confidentiality of Alcohol and Drug Abuse Patient Records regulations: The Federal rules restrict any use of the information to criminally investigate or prosecute any alcohol or drug abuse patient.[facility] HospitalIn the event this information is protected by the Federal Confidentiality of Alcohol and Drug Abuse Patient Records regulations: The Federal rules restrict any use of the information to criminally investigate or prosecute any alcohol or drug abuse patient.[facility]In the event this information is protected by the Federal Confidentiality of Alcohol and Drug Abuse Patient Records regulations: The Federal rules restrict any use of the information to criminally investigate or prosecute any alcohol or drug abuse patient.[facility]In the event this information is protected by the Federal Confidentiality of Alcohol and Drug Abuse Patient Records regulations: The Federal rules restrict any use of the information to criminally investigate or prosecute any alcohol or drug abuse patient.[facility]In the event this information is protected by the Federal Confidentiality of Alcohol and Drug Abuse Patient Records regulations: The Federal rules restrict any use of the information to criminally investigate or prosecute any alcohol or drug abuse patient.[facility]In the event this information is protected by the Federal Confidentiality of Alcohol and Drug Abuse Patient Records regulations: The Federal rules restrict any use of the information to criminally investigate or prosecute any alcohol or drug abuse patient.[facility]In the event this information is protected by the Federal Confidentiality of Alcohol and Drug Abuse Patient Records regulations: The Federal rules restrict any use of the information to criminally investigate or prosecute any alcohol or drug abuse patient.[facility] HospitalIn the event this information is protected by the Federal Confidentiality of Alcohol and Drug Abuse Patient Records regulations: The Federal rules restrict any use of the information to criminally investigate or prosecute any alcohol or drug abuse patient.[facility] HospitalIn the event this information is [...] or prosecute any alcohol or drug abuse patient.[facility] HospitalIn the event this information is protected by the Federal Confidentiality of Alcohol and Drug Abuse Patient Records regulations: The Federal rules restrict any use of the information to criminally investigate or prosecute any alcohol or drug abuse patient.[facility] Reason for Visit (unrecogniz ed [...] STEM W/O CONTRAST MATERIAL Stas Mora MD [address] [place] [address] [place] [address] Referral ID Status Reason Start Date Expiration Date V isits Requested Visits Authorized [id number] Closed Auto-Generat ed Referral Patient Cleared - [...] or mood disturbance or anxiety ([facility]) Procedures CONSULT TO GERIATRICS OFFICE/OUTPATIENT NEW HIGH MDM 60 MINUTES Stas Mora MD [address] [place] [address] Referral ID Status Reason Start Date Expiration Date V isits Requested Visits Authorized [id number] Closed PCP Requested Referral 04/25/2024 04/25/2025 1 [...] Care Teams (unrecognized sec tion and content) Patient Relations Representative Relationship Specialty Start Date End Date Stas Mora MD [address] [place], [place] [id number] PCP - General 08/02/08, Pharmacist [id number] [place] [address] Pharmacist Pharmacy 10/19/19 Patient Relations Representative Relationship Specialty Start Date End Date Stas Mora MD [address] [place] [address] PCP - General 08/02/08, Pharmacist [id number] [place] [address] Pharmacist Pharmacy 10/19/19 Patient Relations Representative Relationship Specialty Start Date End Date Stas Mora MD [address] [place] [address] PCP - General 08/02/08, Pharmacist [address] [place] [address] Pharmacist Pharmacy 10/19/19 Patient Relations Representative Relationship Specialty Start Date End Date Stas Mora MD [address] [place] [address] PCP - General 08/02/08, Pharmacist [id number] [place] [address] Pharmacist Pharmacy 10/19/19 Patient Relations Representative Relationship Specialty Start Date End Date Stas Mora MD [address] [place] [address] PCP - General 08/02/08, Pharmacist [id number] [facility] [place] [address] Pharmacist Pharmacy 10/19/19 Patient Relations Representative Relationship Specialty Start Date End Date Stas Mora MD [address] [place] [address] PCP - General 08/02/08, Pharmacist [id number] [facility] [place] [address] Pharmacist Pharmacy 10/19/19 Patient Relations Representative Relationship Specialty Start Date End Date Stas Mora MD [address] [place] [address] PCP - General 08/02/08, Pharmacist [id number] [facility] [place] [address] Pharmacist Pharmacy 10/19/19 Patient Relations Representative Relationship Specialty Start Date End Date Stas Mora MD [address] [place] [address] PCP - General 08/02/08, Pharmacist [phone] [facility] [place] [address] Pharmacist Pharmacy 10/19/19 Patient Relations Representative Relationship Specialty Start Date End Date Stas Mora MD [address] [place] [address] PCP - General 08/02/08, Pharmacist [phone] [facility] [place] [address] Pharmacist Pharmacy 10/19/19 Patient Relations Representative Relationship Specialty Start Date End Date Stas Mora MD [address] [place] [address] PCP - General 08/02/08, Pharmacist [phone] [facility] [place] [address] Pharmacist Pharmacy 10/19/19 Patient Relations Representative Relationship Specialty Start Date End Date Stas Mora MD [address] [place] [address] PCP - General 08/02/08, Pharmacist [phone] [facility] [place] [address] Pharmacist Pharmacy 10/19/19 Patient Relations Representative Relationship Specialty Start Date End Date Stas Mora MD [address] [place] [address] PCP - General 08/02/08, Pharmacist [phone] [facility] [place] [address] Pharmacist Pharmacy 10/19/19 Patient Relations Representative Relationship Specialty Start Date End Date Stas Mora MD [address] [place] [address] PCP - General 08/02/08, Pharmacist [phone] [facility] [place] [address] Pharmacist Pharmacy 10/19/19 Patient Relations Representative Relationship Specialty Start Date End Date Sats Mora MD [address] [place] [address] PCP - General 08/02/08, Pharmacist [phone] [facility] [place] [address] Pharmacist Pharmacy 10/19/19 Patient Relations Representative Relationship Specialty Start Date End Date Stas Mora MD [address] [place] [address] PCP - General 08/02/08, Pharmacist [phone] [facility] [place] [address] Pharmacist Pharmacy 10/19/19 Patient Relations Representative Relationship Specialty Start Date End Date Stas Mora MD [address] [place] [address] PCP - General 08/02/08, Pharmacist [phone] [facility] [place] [address] Pharmacist Pharmacy 10/19/19 Patient Relations Representative Relationship Specialty Start Date End Date Stas Mora MD [address] [place] [address] PCP - General 08/02/08, Pharmacist [address] [place] [address] Pharmacist Pharmacy 10/19/19 Patient Relations Representative Relationship Specialty Start Date End Date Stas Mora MD [address] [place] [address] PCP - General 08/02/08, Pharmacist [phone] [place] [address] Pharmacist Pharmacy 10/19/19 Patient Relations Representative Relationship Specialty Start Date End Date Stas Mora MD [address] [place] [address] PCP - General 08/02/08, Pharmacist [phone] [place] [address] Pharmacist Pharmacy 10/19/19 Patient Relations Representative Relationship Specialty Start Date End Date Stas Mora MD [address] [place] [address] PCP - General 08/02/08, Pharmacist [address] [place] [address] Pharmacist Pharmacy 10/19/19 Patient Relations Representative Relationship Specialty Start Date End Date Stas Mora MD [address] [place] [address] PCP - General 08/02/08, Pharmacist [phone] [facility] [place] [address] Pharmacist Pharmacy 10/19/19 Team Status: Active Member Role Status Dates Dr. Stas Mora MD Family Provider Active Dr. Stas Mora MD Primary Care Provider Active Team Status: Inactive Member Role Status Dates Dr. Stas Mora MD Primary Care Provider Active Dr. Brian Cunningham , Emergency Provider Active Patient Relations Representative Relationship Specialty Start Date End Date Stas Mora MD [address] [place] [address] PCP - General 08/02/08, Pharmacist [phone] [facility] [place] [address] Pharmacist Pharmacy 10/19/19 Patient Relations Representative Relationship Specialty Start Date End Date Stas Mora MD [address] [place] [address] PCP - General 08/02/08, Pharmacist [phone] [facility] [place] [address] Pharmacist Pharmacy 10/19/19 Patient Relations Representative Relationship Specialty Start Date End Date Stas Mora MD [address] [place] [address] PCP - General 08/02/08, Pharmacist [phone] [facility] [place] [address] Pharmacist Pharmacy 10/19/19 Patient Relations Representative Relationship Specialty Start Date End Date Stas Mora MD [address] [place] [address] PCP - General 08/02/08, Pharmacist 65302 [facility] [place] [address] Pharmacist Pharmacy 10/19/19 Patient Relations Representative Relationship Specialty Start Date End Date Stas Mora MD [address] [place] [address] PCP - General 08/02/08, Pharmacist [address] [place] [address] Pharmacist Pharmacy 10/19/19 Patient Relations Representative Relationship Specialty Start Date End Date Stas Mora MD [address] [place] [address] PCP - General 08/02/08, Pharmacist [address]65 [place] [address] Pharmacist Pharmacy 10/19/19 Patient Relations Representative Relationship Specialty Start Date End Date Stas Mora MD [address] [place] [address] PCP - General 08/02/08, Pharmacist [address]248 [place] [address] Pharmacist Pharmacy 10/19/19 Patient Relations Representative Relationship Specialty Start Date End Date Stas Mora MD [address] [place] [address] PCP - General 08/02/08, Pharmacist [address]70 [place] [address] Pharmacist Pharmacy 10/19/19 Patient Relations Representative Relationship Specialty Start Date End Date Stas Mora MD [address] [place] [address] PCP - General 08/02/08, Pharmacist [address] [place] [address] Pharmacist Pharmacy 10/19/19 Patient Relations Representative Relationship Specialty Start Date End Date Stas Mora MD [address] [place] [address] PCP - General 08/02/08, Pharmacist [address] [place] [address] Pharmacist Pharmacy 10/19/19 Patient Relations Representative Relationship Specialty Start Date End Date Stas Mora MD [address] [place] [address] PCP - General 08/02/08, Pharmacist [address] [place] [address] Pharmacist Pharmacy 10/19/19 Patient Relations Representative Relationship Specialty Start Date End Date Stas Mora MD [address] [place] [address] PCP - General 08/02/08, Pharmacist [address]99 [place] [address] Pharmacist Pharmacy 10/19/19 Patient Relations Representative Relationship Specialty Start Date End Date Stas Mora MD [address] [place] [address] PCP - General 08/02/08, Pharmacist [address]38 [place] [address] Pharmacist Pharmacy 10/19/19 Patient Relations Representative Relationship Specialty Start Date End Date Stas Mora MD [address] [place] [address] PCP - General 08/02/08, Pharmacist [address] [place] [address] Pharmacist Pharmacy 10/19/19 Patient Relations Representative Relationship Specialty Start Date End Date Stas Mora MD [address] [place] [address] PCP - General 08/02/08, Pharmacist [address]12 [place] [address] Pharmacist Pharmacy 10/19/19 Patient Relations Representative Relationship Specialty Start Date End Date Stas Mora MD [address] [place] [address] PCP - General 08/02/08, Pharmacist [phone] [facility] [place] [address] Pharmacist Pharmacy 10/19/19 Patient Relations Representative Relationship Specialty Start Date End Date Stas Mora MD [address] [place] [address] PCP - General 08/02/08, Pharmacist [address]36 [place] [address] Pharmacist Pharmacy 10/19/19 Patient Relations Representative Relationship Specialty Start Date End Date Stas Mora MD [address] [place] [address] PCP - General 08/02/08, Pharmacist [address] [place] [address] Pharmacist Pharmacy 10/19/19 Patient Relations Representative Relationship Specialty Start Date End Date Stas Mora MD [address] [place] [address] PCP - General 08/02/08, Pharmacist 38391 [facility] [place] [address] Pharmacist Pharmacy 10/19/19 Patient Relations Representative Relationship Specialty Start Date End Date Stas Mora MD [address] [place] [address] PCP - General 08/02/08, Pharmacist [address]337 [place] [address] Pharmacist Pharmacy 10/19/19 Patient Relations Representative Relationship Specialty Start Date End Date Stas Mora MD [address] [place] [address] PCP - General 08/02/08, Pharmacist [phone] [facility] [place] [address] Pharmacist Pharmacy 10/19/19 Patient Relations Representative Relationship Specialty Start Date End Date Stas Mora MD [address] [place] [address] PCP - General 08/02/08, Pharmacist [address] [place] [address] Pharmacist Pharmacy 10/19/19 Jenna Fitzpatrick, SPECIAL EVENTS FUNDRAISER.DATASTAGE CONSULTANT [address] [place] [address] Apartment Leasing Agent Family Medicine 02/28/24 Patient Relations Representative Relationship Specialty Start Date End Date Stas Mora MD [address] [place] [address] PCP - General 08/02/08, Pharmacist 48849 [facility] [place] [address] Pharmacist Pharmacy 10/19/19 Jenna Fitzpatrick, SPECIAL EVENTS FUNDRAISER.DATASTAGE CONSULTANT [address] [place] [address] Apartment Leasing Agent Family Medicine 02/28/24 Elvis Kearney, SPECIAL EVENTS FUNDRAISER.DATASTAGE CONSULTANT [address] [place] [address] Apartment Leasing Agent Family Medicine 03/08/24 Patient Relations Representative Relationship Specialty Start Date End Date Stas Mora MD [address] [place] [address] PCP - General 08/02/08, Pharmacist [address]78 [facility] [place] [address] Pharmacist Pharmacy 10/19/19 Jenna Fitzpatrick APRN.DATASTAGE CONSULTANT [address] [place] [address] Apartment Leasing Agent Family Medicine 02/28/24 Elvis Kearney APRN.DATASTAGE CONSULTANT [address] [place] [address] Apartment Leasing Agent Family Medicine 03/08/24 Patient Relations Representative Relationship Specialty Start Date End Date Stas Mora MD [address] [place] [address] PCP - General 08/02/08, Pharmacist [address]115 [place] [address] Pharmacist Pharmacy 10/19/19 Jenna Fitzpatrick APRN.DATASTAGE CONSULTANT [address] [place] [address] [facility] 02/28/24 Elvis Kearney SPECIAL EVENTS FUNDRAISER.DATASTAGE CONSULTANT [address] [place] [address] [facility] 03/08/24 Patient Relations Representative Relationship Specialty Start Date End Date Stas Mora MD [address] [place] [address] PCP - General 08/02/08, Pharmacist [phone] [facility] [place] [address] Pharmacist Pharmacy 10/19/19 Jenna Fitzpatrick APRN.DATASTAGE CONSULTANT [address] [place] [address] Apartment Leasing Agent Family Medicine 02/28/24 Elvis Kearney APRN.DATASTAGE CONSULTANT [address] [place] [address] Apartment Leasing Agent Family Medicine 03/08/24 Patient Relations Representative Relationship Specialty Start Date End Date Stas Mora MD [address] [place] [address] PCP - General 08/02/08, Pharmacist [address]402 [place] [address] Pharmacist Pharmacy 10/19/19 Jenna Fitzpatrick APRN.DATASTAGE CONSULTANT [address] [place] [address] Apartment Leasing Agent Family Medicine 02/28/24 Elvis Kearney, JETHRO.DATASTAGE CONSULTANT [address] [place] [address] Apartment Leasing Agent Family [facility] 03/08/24 Patient Relations Representative Relationship Specialty Start Date End Date Stas Mora MD [address] [place] [address] PCP - General 08/02/08, Pharmacist [address] [place] [address] Pharmacist Pharmacy 10/19/19 Jenna Fitzpatrick SPECIAL EVENTS FUNDRAISER.DATASTAGE CONSULTANT [address] [place] [address] Apartment Leasing Agent Family Medicine 02/28/24 Elvis Kearney APRN.DATASTAGE CONSULTANT [address] [place] [address] Apartment Leasing Agent Family Medicine 03/08/24 Patient Relations Representative Relationship Specialty Start Date End Date Stas Mora MD [address] [place] [address] PCP - General 08/02/08, Pharmacist [address]344 [place] [address] Pharmacist Pharmacy 10/19/19 Jenna Fitzpatrick, SPECIAL EVENTS FUNDRAISER.DATASTAGE CONSULTANT [address] [place] [address] Apartment Leasing Agent Family Medicine 02/28/24 Elvis Kearney SPECIAL EVENTS FUNDRAISER.DATASTAGE CONSULTANT [address] [place] [address] Apartment Leasing Agent Family [facility] 03/08/24 Patient Relations Representative Relationship Specialty Start Date End Date Stas Mora MD [address] [place] [address] PCP - General 08/02/08, Pharmacist [address] [place] [address] Pharmacist Pharmacy 10/19/19 Jenna Fitzpatrick, SPECIAL EVENTS FUNDRAISER.DATASTAGE CONSULTANT [address] [place] [address] Apartment Leasing Agent Family Medicine 02/28/24 Elvis Kearney, SPECIAL EVENTS FUNDRAISER.DATASTAGE CONSULTANT [address] [place] [address] Apartment Leasing Agent [facility] 03/08/24 Patient Relations Representative Relationship Specialty Start Date End Date Stas Mora MD [address] [place] [address] PCP - General 5/13/09 13, Pharmacist [address]34 [facility] [place] [address] Pharmacist Pharmacy 10/19/19 Jenna Fitzpatrick APRN.DATASTAGE CONSULTANT [address] [place] [address] Apartment Leasing Agent Family Medicine 02/28/24 Elvis Kearney APRN.DATASTAGE CONSULTANT [address] [place] [address] Apartment Leasing Agent Family Medicine 03/08/24 Patient Relations Representative Relationship Specialty Start Date End Date Stas Mora MD [address] [place] [address] PCP - General 08/02/08, Pharmacist [address] [place] [address] Pharmacist Pharmacy 10/19/19 Jenna Fitzpatrick, SPECIAL EVENTS FUNDRAISER.DATASTAGE CONSULTANT [address] [place] [address] Apartment Leasing Agent Family Medicine 02/28/24 Elvis Kearney SPECIAL EVENTS FUNDRAISER.DATASTAGE CONSULTANT [address] [place] [address] Apartment Leasing Agent Family Medicine 03/08/24 Patient Relations Representative Relationship Specialty Start Date End Date Stas Mora MD [address] [place] [address] PCP - General 08/02/08, Pharmacist [address] [place] [address] Pharmacist Pharmacy 10/19/19 Jenna Fitzpatrick SPECIAL EVENTS FUNDRAISER.DATASTAGE CONSULTANT [address] [place] [address] Apartment Leasing Agent Family Medicine 02/28/24 Elvis Kearney APRN.DATASTAGE CONSULTANT [address] [place] [address] Apartment Leasing Agent Family Medicine 03/08/24 Patient Relations Representative Relationship Specialty Start Date End Date Stas Mora MD [address] [place] [address] PCP - General 08/02/08, Pharmacist [address] [place] [address] Pharmacist Pharmacy 10/19/19 Jenna Fitzpatrick APRN.DATASTAGE CONSULTANT [address] [place] [address] Apartment Leasing Agent Family Medicine 02/28/24 Elvis Kearney APRN.DATASTAGE CONSULTANT [address] [place] [address] Apartment Leasing Agent [facility] 03/08/24 Patient Relations Representative Relationship Specialty Start Date End Date Stas Mora MD [address] [place] [address] PCP - General 08/02/08, Pharmacist [address]374 [place] [address] Pharmacist Pharmacy 10/19/19 Jenna Fitzpatrick APRN.DATASTAGE CONSULTANT [address] [place] [address] Apartment Leasing Agent Family Medicine 02/28/24 Elvis Kearney APRN.DATASTAGE CONSULTANT [address] [place] [address] Apartment Leasing Agent Family Medicine 03/08/24 Patient Relations Representative Relationship Specialty Start Date End Date Stas Mora MD [address] [place] [address] PCP - General 08/02/08, Pharmacist [address] [place] [address] Pharmacist Pharmacy 10/19/19 Jenna Fitzpatrick, SPECIAL EVENTS FUNDRAISER.DATASTAGE CONSULTANT [address] [place] [address] Apartment Leasing Agent Family Medicine 02/28/24 Elvis Kearney SPECIAL EVENTS FUNDRAISER.DATASTAGE CONSULTANT [address] [place] [address] Apartment Leasing Agent [facility] 03/08/24 Patient Relations Representative Relationship Specialty Start Date End Date Stas Mora MD [address] [place] [address] PCP - General 08/02/08, Pharmacist [address]274 [place] [address] Pharmacist Pharmacy 10/19/19 Jenna Fitzpatrick SPECIAL EVENTS FUNDRAISER.DATASTAGE CONSULTANT [address] [place] [address] Apartment Leasing Agent Family Medicine 02/28/24 Elvis Kearney SPECIAL EVENTS FUNDRAISER.DATASTAGE CONSULTANT [address] [place] [address] [facility] 03/08/24 Patient Relations Representative Relationship Specialty Start Date End Date Stas Mora MD [address] [place] [address] PCP - General 08/02/08, Pharmacist [address] [place] [address] Pharmacist Pharmacy 10/19/19 Jenna Fitzpatrick SPECIAL EVENTS FUNDRAISER.DATASTAGE CONSULTANT [address] [place] [address] Apartment Leasing Agent Family Medicine 02/28/24 Elvis Kearney APRN.DATASTAGE CONSULTANT [address] [place] [address] Apartment Leasing Agent [facility] 03/08/24 Patient Relations Representative Relationship Specialty Start Date End Date Stas Mora MD [address] [place] [address] PCP - General 08/02/08, Pharmacist [address] [place] [address] Pharmacist Pharmacy 10/19/19 Elvis Kearney APRN.DATASTAGE CONSULTANT [address] [place] [address] [facility] 03/08/24 Patient Relations Representative Relationship Specialty Start Date End Date Stas Mora MD [address] [place] [address] PCP - General 08/02/08, Pharmacist [address]19 [facility] [place] [address] Pharmacist Pharmacy 10/19/19 Elvis Kearney SPECIAL EVENTS FUNDRAISER.DATASTAGE CONSULTANT [address] [place] [address] [facility] 03/08/24 Team Status: Active Member Role Status [...] Status: Active Member Role Status Dates Dr. tSas oMra MD Primary Care Provider Active Start: September [...] Provider Active Sta rt: September 06, 2024 Patient Relations Representative Relationship Specialty Start Date End Date Stas Mora MD [address] [place], [place] [address] PCP - General 08/02/08 13, Pharmacist [address] [place] [address] Pharmacist Pharmacy 10/19/19 Elvis Kearney APRN.DATASTAGE CONSULTANT [address] [place], [place] [id number] Apartment Leasing Agent Family Medicine 03/08/24 Team Status: Active Member [...] 2024 End: September 07, 2024 Halina Carmona MARKETING REGIONAL CONSULTANT, MARKETING REGIONAL CONSULTANT-C Attending Provider Active Start: September 07, 2024 [...] End: September 08, 2024 Halina Carmona NP, MARKETING REGIONAL CONSULTANT-C Attending Provider Active Start: September 08, 2024 End: September 08, 2024 Team Status: Active Member Role/Relationship Status Dates Dr. Stsa Mora MD Primary Care Provider Active Start: [...] 2024 End: September 30, 2024 Halina Carmona MARKETING REGIONAL CONSULTANT, MARKETING REGIONAL CONSULTANT-C Attending Provider Active Start: September 30, 2024 [...] 2024 End: October 20, 2024 Halina Carmona MARKETING REGIONAL CONSULTANT, MARKETING REGIONAL CONSULTANT-C Attending Provider Active Start: October 20, 2024 [...] End: September 30, 2024 Halina Carmona NP, MARKETING REGIONAL CONSULTANT-C Attending Provider Active Start: September 30, 2024 [...] 2024 End: October 20, 2024 Halina Carmona MARKETING REGIONAL CONSULTANT, MARKETING REGIONAL CONSULTANT-C Attending Provider Active Start: October 20, 2024 End: October 20, 2024 Team Status: Active Member Role/Relationship Status Dates Dr. Stas Mora MD Primary Care Provider Active Start: October 31, 2024 Shayy GAMA MD Attending Provider Active Start: October 31, 2024 Team Status: Active Member Role/Relationship Status Dates Dr. Stas Mora MD Primary Care Provider Active Start: November 02, 2024 Shayy AGMA MD Attending Provider Active Start: November 02, [...] BE BASED ON THE PRIMARY CLINICAL RECORDS. [facility] [employer] provides no warranty or guarantee of the accuracy or completeness of information in this document.
[2024-11-30 07:43] LABS: INR Fingerstick 2.0
== END ==
LOC: OLS.WHLCAR 05:00
PROVIDERS: PCP Family Medicine; Visit Provider Internal Medicine
DX: I48.91 Unspecified atrial fibrillation (principal); I10 Essential (primary) hypertension; I25.10 Atherosclerotic heart disease of native coronary artery without angina pectoris
CPT/HCPCS: 36416; 85610

== ENCOUNTER → 2024-12-14 | Outpatient (REF) | payer MEDICARE, SELFPAY ==
[2024-12-14 08:31] LABS: Prothrombin Time (Protime)PT. 27.6 SECONDS (11.7-14.9)
== END ==
LOC: OLS.WHLCAR 05:35
PROVIDERS: PCP Family Medicine; Visit Provider Internal Medicine
DX: I48.91 Unspecified atrial fibrillation (principal)
CPT/HCPCS: 36415; 85610

== ENCOUNTER → 2024-12-21 | Outpatient (REF) | payer MEDICARE, SELFPAY ==
[2024-12-21 09:47] LABS: Hematocrit 34.9 % (40-54); Hemoglobin 10.6 g/dL (13.0-16.5); Immature Granulocytes Count 0.010 X10^3/uL (0.0-0.0); Mean Corp Hgb Conc 30.4 g/dL (32-36); Mean Corpuscular Volume 84.5 fL (80-94); Mean Platelet Vol. 10.9 fl (6.2-12.0); NRBC Flagged by Analyzer 0 % (0-5); Platelet Count 217 K/mm3 (150-450); RBC Distribution Width CV 15.9 % (11.6-14.6); RBC Distribution Width SD 49.5 fl (35.1-43.9); Red Blood Count 4.13 M/mm3 (4.6-6.2); White Blood Count 5.7 K/mm3 (4.4-11.0)
[2024-12-21 10:08] LABS: Anion Gap 9 (5-15); BUN 22 mg/dL (4-19); BUN/Creat Ratio 32.5 RATIO (10-20); Calcium,Total 8.6 mg/dL (7.6-11.0); Carbon Dioxide 25.8 mmol/L (21.0-32.0); Chloride 107 mmol/L (98-108); Glucose 86 mg/dL (70-99); Potassium 3.8 mmol/L (3.3-5.1)
== END ==
LOC: OLS.WHLCAR 05:45
PROVIDERS: PCP Family Medicine; Visit Provider Internal Medicine
DX: I48.91 Unspecified atrial fibrillation (principal); I10 Essential (primary) hypertension; I25.10 Atherosclerotic heart disease of native coronary artery without angina pectoris
CPT/HCPCS: 36415; 80048; 85025

== ENCOUNTER → 2025-01-10 05:00 | Outpatient (REF) | payer MEDICARE, SELFPAY ==
--- OUTSIDE RECORDS SUMMARY | 2025-01-10 03:28 | XMS RPT_ITS | CCD ---
Author Organization [facility] Inform ion [facility] Care Team Providers Care Drafting Layout Man Name Role Phone TEE, DARRELL E Unavailable [...] Unavailable STERLING LYNCH DO Attending Unavailable Tannhof 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METAL LEAF LAYER, Jenna Unavailable Caio 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METAL LEAF LAYER, Elvis Unavailable GANTA, LUCIANA C Referring Unavailable ELDERBROCK, STAS D Primary Care Unavailable Tannhof 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METAL LEAF LAYER, Jenna Unavailable Unavail able Tannhof 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METAL LEAF LAYER, Jenna Unavailable Morgan POLANCO, Dr. Ruiz Primary Care Provider Jose Miguel POLANCO, Dr. Jansen Emergency Provider Priscilla POLACNO, Dr. Kathy Bearden Admit Provider Priscilla POLANCO, Dr. Kathy Bearden Attending Provider Priscilla POLANCO, Dr. Kathy Bearden Other Provider Alberto POLANCO, Dr. Shoemaker Attending Provider Alberto POLANCO, Dr. Shoemaker Other Provider Shayy Curtis MD Attending Provider UnavailShayy Hernandez MD Referring Provider Unavailaiyana Carmona NP-CHalina Attending Provider [...] Unavailable ELDERBROCK, STAS D Primary Care Unavailable ELDERBROCKSTAS Referring Unavailable ELDERBROCK, STAS Trejo Primary Care Unavailable ELDERBROCKSTAS D Referring Unavailable ELDERBROCK, STAS D Primary Care Unavailable ELDERBROCK, STAS D Referring Unavailable ELDERBROCK, STAS D Primary Care Unavailable ELDERBROCK, STAS D Referring Unavailable ELDERBROCK, STAS D Primary Care Unavailable Elderbrock, Stas Primary Care Unavailable Oleghe OLS, Efewongbe Referring Unavailabl e Oleghe OLS, Efewongbe Attending Unavailabl e Oleghe [...] Primary Care Unavailable Navid Dominguez Attending Unavailable Elderbrock, Stas [...] Unavailabl e Elderbrock, Stas Primary Care Unavailable Halina Carmona NP Attending Unavailable Elderbrock, Stas Primary Care Unavailable Koram, Kathy Monisha Consulting Unavailable Koram, Kathy Monisha Attending Unavailable Koram, Kathy Monisha Admitting Unavailable Alberto, Navid Attending Unavailable Alberto, Navid Consulting Unavailable Oleghe OLS, Efewongbe Attending Unavailabl e Elderbrock, Stas Primary Care Unavailable Elderbrock, Stas Primary Care Unavailable Koram, Kathy Monisha Consulting Unavailable Koram, Kathy Monisha Attending Unavailable Koram, Kathy Monisha Admitting Unavailable Elderbrock, Stas Primary Care Unavailable Oleghe OLS, Efewongbe Attending Unavailabl e Elderbrock, Stas Primary Care Unavailable [place] DISPATCHER RADIOACTIVE WASTE DISPOSAL, Halina Attending Unavailable [place] DISPATCHER RADIOACTIVE WASTE DISPOSAL, Halina Attending Unavailable Elderbrock, Stas Primary Care Unavailable [place] DISPATCHER RADIOACTIVE WASTE DISPOSAL, Halina Attending Unavailable Elderbrock, Stas Primary Care Unavailable [place] DISPATCHER RADIOACTIVE WASTE DISPOSAL, Halina Attending Unavailable Elderbrock, Stas Primary Care Unavailable Elderbrock, Stas Primary Care Unavailable Oleghe, Efewongbe Attending Unavailable Elderbrock, Stas Primary Care Unavailable Oleghe, Efewongbe Attending Unavailable Elderbrock, Stas Primary Care Unavailable Oleghe, Efewongbe Attending Unavailable Oleghe OLS, Efewongbe Attending Unavailabl e Elderbrock, Stas Primary Care Unavailable Medications Current Medications Medication Drug Class(es) Dates Sig (Normalized) Sig (Original) atorvastatin 40 mg oral tablet (20 sources) HMG-CoA Reductase Inhibitor Start: 12-22-2021 End: 05-26-2024 take 1 tablet by mouth at bedtime Atorvastatin 40 mg Tablet Active 40 mg PO AT BEDTIME 30 December 22, 2021 12:00am Start: 07-16-2021 End: [...] unspecified vessel or lesion type, unspecified whether [place] or transplanted heart Take 1 tablet by [...] tablet Active 10 mg PO DAILY 30 December 22, 2021 12:00am Comment on above: Take by mouth. Take 1 tablet by darrian th once daily. memantine hydrochloride 10 mg oral tablet (20 sources) A-hivyfk-T-aspartate Receptor Antagonist Start: 06-02-19 End: 11-29-19 take [...] Date: 01/01/06 Status: Ordered polyethylene glycol [id number] [id number] mg powder for oral solution (9 sources) [...] on above: Take 1 capsule by mo [facility] daily at bedtime. vardenafil [...] tablet d aily. Take 1 tablet by [facility] once daily. donepezil hydrochloride 5 mg oral [...] disease (20 sources) Atherosclerotic heart disease of [place] coronary artery without angina pectoris; Translations: [Coronary [...] Dyslipidemia; Translations: [Hyperlipidemia, unspecified] Onset: 08-26-2022 Chronic Essential hypertension (20 sources) Benign essential hypertension; [...] sources) Long-term current use of anticoagulant; Translations: [senior care (current) use of anticoagulants] Onset: 09-22-2016 [...] Translations: [Adult failure to thrive] 09-01-2024 Episodic Pneumonia (except that caused by tuberculosis or sexually transmitted disease) (13 sources) Community acquired pneumonia; Translations: [Pneumonia, unspecified organism] 02-10-2021 Episodic Residual codes; unclassified (3 sources) Bilateral lower leg edema; Translations: [Localized edema] 09-15-2023 Episodic Residual codes; unclassified (1 source) Hallucinations; Translations: [Hallucinations, unspecified] 08-31-2024 Episodic Spondylosis; intervertebral disc disorders; other back [...] anxiety, unspecified dementia type (HCC)] Onset: 08-31-2024 Unclassified (1 source) Unspecified dementia, unspecified severity, with other behavioral disturbance; Translations: [Unspecified dementia, unspecified severity, with other behavioral disturbance] Onset: 01-09-2025 Past or Other Problems Problem Classification Problem Date Documented Date Episodic/Chronic Diseases of mouth; excluding dental (20 sources) Mucocele of lower lip; 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] Onset: 04-24-2011 04-24-2011 Episodic E Codes: Fall (20 sources) Fall; Translations: [Unspecified fall, initial encounter] Onset: 09-06-2024 09-01-2024 Episodic Neoplasms of unspecified nature or uncertain behavior (20 sources) Neoplasm of lip; 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] Onset: 04-24-2011 04-24-2011 Episodic Other aftercare (3 sources) director 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; Translations: [Long-term (current) [...] Translations: [Shuffling gait] Onset: 04-27-2024 Episodic Other nutritional; endocrine; and metabolic disorders (1 source) Adult failure to thrive; Translations: [Adult failure to thrive] Onset: 09-06-2024 Episodic Other screening for suspected conditions (not mental disorders or infectious disease) (4 sources) INR raised; Translations: [Abnormal coagulation profile] Onset: 05-25-2024 Episodic Screening and history of mental health and substance abuse codes (20 sources) H/O: dementia; Translations: [Personal history of other mental and behavioral disorders] Onset: 08-31-2024 09-01-2024 Episodic Results Test Name Value Interpretation Reference Range Facility Absolute lymphocyte countOrd ered By: Shayy Curtis on 11-23-2024 Lymphocytes Auto (Unsp spec) [#/Vol] 1.15 10*3/uL 0.83-4.51 [facility] Absolute neutrophil countOrd ered By: Shayy Curtis on 11-23-2024 Neutrophils (Bld) [#/Vol] 4.4 10*3/uL 2.0-7.7 [facility] Automated lymphocyte count a s percentage of total leukocytesOrdered By: Shayy Curtis on 11-23-2024 Lymphocytes/100 WBC Auto (Unsp spec) 17.5 % Low 19-41 [facility] Basophil percentageOrdered B y: Shayy Curtis on 11-23-2024 Basophils/100 WBC (Bld) 0.9 % 0-1 [facility] Eosinophil percentageOrdered By: [facility] on 11-23-2024 Eosinophils/100 WBC (Bld) 2.9 % 0-5 [facility] Erythrocyte distribution wid th ratioOrdered By: [facility] Martinradha on 11-23-2024 Erythrocyte distribution width (RBC) [Ratio] 16.9 % High 11.6-14.6 [facility] Erythrocyte distribution wid th standard deviationOrdered By: [facility] on 11-23-2024 Erythrocyte distribution width (RBC) [Ratio] 50.4 fl High 35.1-43.9 [facility] Hematocrit Auto (Bld) [Volum e fraction]Ordered By: [facility] Sal[facility] on 11-23-2024 Hematocrit (Bld) [Volume fraction] 36.3 % Low 40-54 [facility] Hemoglobin measurementOrdere d By: [facility] Martinradha on 11-23-2024 Hemoglobin (Bld) [Mass/Vol] 11.6 g/dL Low 13.0-16.5 [facility] Immature granulocytes/100 WB C Auto (Bld)Ordered By: [facility] Martinradha on 11-23-2024 Immature granulocytes/100 WBC (Bld) 0.300 % 0.0-0.9 [facility] Comment on above: IG% - Immature Granu locytes (promyelocytes, myelocytes and metamyelocytes) > 1% indicates that a LEFT SHIFT is Present. MCV (mean corpuscular volume ) determinationOrdered By: holliesuchesirlanda Curtis on 11-23-2024 MCV (RBC) [Entitic vol] 82.1 fL 80-94 [facility] Mean corpuscular hemoglobin (MCH) determinationOrdered By: [facility] Martinradha 11-23-2024 MCH (RBC) [Entitic mass] 26.2 pg Low 27.0-32.0 [facility] Mean corpuscular hemoglobin concentration (MCHC) determinationOrdered By: [facility] Martinradha on 11-23-2024 MCHC (RBC) [Mass/Vol] 32.0 g/dL 32-36 [facility] Mean platelet volume determi nationOrdered By: Shayy Curtis on 11-23-2024 Platelet mean volume (Bld) [Entitic vol] 10.0 fL 6.2-12.0 [facility] Monocyte percentageOrdered B y: Efhollieongirlanda Salazartomye on 11-23-2024 Monocytes/100 WBC (Bld) 11.3 % High 0-10 [facility] Neutrophil percentageOrdered By: Shayy Brenale on 11-23-2024 Neutrophils/100 WBC (Bld) 67.1 % 47-70 [facility] Nucleated red blood cell per centageOrdered By: Shayy Bernale on 11-23-2024 Nucleated RBC/100 WBC (Bld) [Ratio] 0 % 0-5 [facility] Platelet countOrdered By: Ef hollietimmy Curtis on 11-23-2024 Platelets (Bld) [#/Vol] 245 10*3/uL 150-450 [facility] RBC Auto (Bld) [#/Vol]Ordere d By: Shayy Curtis on 11-23-2024 RBC (Bld) [#/Vol] 4.42 10*6/uL Low 4.6-6.2 [facility] White blood cell (WBC) count Ordered By: Shayy Curtis on 11-23-2024 WBC (Bld) [#/Vol] 6.6 10*3/uL 4.4-11.0 [facility] Absolute lymphocyte countOrd ered By: Shayy Curtis on 11-02-2024 Lymphocytes Auto (Unsp spec) [#/Vol] 1.10 10*3/uL 0.83-4.51 [facility] Absolute neutrophil countOrd ered By: Shayy Curtis on 11-02-2024 Neutrophils (Bld) [#/Vol] 6.2 10*3/uL 2.0-7.7 [facility] Anion gap in Serum or Plasma Ordered By: Shayy Curtis on 11-02-2024 Anion gap [Moles/Vol] 10 mmol/L 5-15 [facility] Automated lymphocyte count a s percentage of total leukocytesOrdered By: Shayy Curtis on 11-02-2024 Lymphocytes/100 WBC Auto (Unsp spec) 13.5 % Low 19-41 [facility] BUN/creatinine ratioOrdered By: Shayy Curtis on 11-02-2024 Urea nitrogen/Creatinine [Mass ratio] 30.4 mg/mg High 10-20 [facility] Basophil percentageOrdered B y: Shayy Curtis on 11-02-2024 Basophils/100 WBC (Bld) 0.5 % 0-1 [facility] Carbon dioxide, total [Moles /volume] in Central venous bloodOrdered By: holliesuchesirlanda Martintomyradha on 11-02-2024 CO2 [Moles/Vol] 22.3 mmol/L 21.0-32.0 [facility] Chloride assayOrdered By: Hung baldomero Martintomyradha on 11-02-2024 Chloride [Moles/Vol] 106 mmol/L 98-108 [facility] Eosinophil percentageOrdered By: Latricesuchesirlanda Curtis on 11-02-2024 Eosinophils/100 WBC (Bld) 1.4 % 0-5 [facility] Erythrocyte distribution wid th ratioOrdered By: [facility] on 11-02-2024 Erythrocyte distribution width (RBC) [Ratio] 18.0 % High 11.6-14.6 [facility] Erythrocyte distribution wid th standard deviationOrdered By: holliesuchesirlanda Curtis on 11-02-2024 Erythrocyte distribution width (RBC) [Ratio] 53.7 fl High 35.1-43.9 [facility] Glomerular filtration rate ( GFR) estimation/1.73 sq m using serum, plasma, or whole bOrdered By: Shayy Curtis on 11-02-2024 GFR/1.73 sq M.predicted among non-blacks MDRD (S/P/Bld) [Vol rate/Area] 91 mL/min/{1.73_m2} >60 [facility] Comment on above: mL/min/1.73m2 CKD-EP I Creatinine Equation (2020) Hematocrit Auto (Bld) [Volum e fraction]Ordered By: Hunghollierobsonirlanda Salazartomyradha on 11-02-2024 Hematocrit (Bld) [Volume fraction] 35.3 % Low 40-54 [facility] Hemoglobin measurementOrdere d By: Shayy Curtis on 11-02-2024 Hemoglobin (Bld) [Mass/Vol] 11.2 g/dL Low 13.0-16.5 [facility] Immature granulocytes/100 WB C Auto (Bld)Ordered By: Shayy Curtis on 11-02-2024 Immature granulocytes/100 WBC (Bld) 0.400 % 0.0-0.9 [facility] Comment on above: IG% - Immature Granu locytes (promyelocytes, myelocytes and metamyelocytes) > 1% indicates that a LEFT SHIFT is Present. MCV (mean corpuscular volume ) determinationOrdered By: Shayy Curtis on 11-02-2024 MCV (RBC) [Entitic vol] 81.5 fL 80-94 [facility] Mean corpuscular hemoglobin (MCH) determinationOrdered By: baldomero Curtis on 11-02-2024 MCH (RBC) [Entitic mass] 25.9 pg Low 27.0-32.0 [facility] Mean corpuscular hemoglobin concentration (MCHC) determinationOrdered By: Shayy Curtis on 11-02-2024 MCHC (RBC) [Mass/Vol] 31.7 g/dL Low 32-36 [facility] Mean platelet volume determi nationOrdered By: Shayy Curtis on 11-02-2024 Platelet mean volume (Bld) [Entitic vol] 10.3 fL 6.2-12.0 [facility] Monocyte percentageOrdered B y: Shayy Curtis on 11-02-2024 Monocytes/100 WBC (Bld) 7.7 % 0-10 [facility] Neutrophil percentageOrdered By: baldomero Curtis on 11-02-2024 Neutrophils/100 WBC (Bld) 76.5 % High 47-70 [facility] Nucleated red blood cell per centageOrdered By: Shayy Curtis on 11-02-2024 Nucleated RBC/100 WBC (Bld) [Ratio] 0 % 0-5 [facility] Platelet countOrdered By: Hung Curtis on 11-02-2024 Platelets (Bld) [#/Vol] 225 10*3/uL 150-450 [facility] Potassium measurement (mass/ volume)Ordered By: Shayy Curtis on 11-02-2024 Potassium (Unsp spec) [Mass/Vol] 3.9 mmol/L 3.3-5.1 [facility] RBC Auto (Bld) [#/Vol]Ordere d By: Shayy Curtis on 11-02-2024 RBC (Bld) [#/Vol] 4.33 10*6/uL Low 4.6-6.2 [facility] Serum creatinine measurement (mass/volume)Ordered By: Shayy Curtis on 11-02-2024 Creatinine [Mass/Vol] 0.62 mg/dL Low 0.70-1.20 [facility] Serum glucose measurement (m ass/volume)Ordered By: Shayy Curtis on 11-02-2024 Glucose [Mass/Vol] 110 mg/dL High 70-99 [facility] Serum or plasma calcium alvaro urement (mass/volume)Ordered By: Shayy Curtis on 11-02-2024 Calcium [Mass/Vol] 8.7 mg/dL 7.6-11.0 [facility] Serum or plasma urea nitroge n measurement (mass/volume)Ordered By: Shayy Curtis on 11-02-2024 Urea nitrogen [Mass/Vol] 19 mg/dL 4-19 [facility] Sodium levelOrdered By: Latrice Curtis on 11-02-2024 Sodium [Moles/Vol] 139 mmol/L 133-145 [facility] White blood cell (WBC) count Ordered By: Shayy Curtis on 11-02-2024 WBC (Bld) [#/Vol] 8.1 10*3/uL 4.4-11.0 [facility] normalized rat io (INR) measurement by fingerstickOrdered By: Shayy Curtis on 10-31-2024 INR Coag (BldC) [Relative time] 1.8 [facility] Comment on above: Critical Value > 4.0 Whole blood prothrombin time Ordered By: Shayy Curtis on 10-31-2024 PT Coag (Bld) [Time] 20.2 s High 11.7-14.9 [facility] normalized rat io (INR) measurement by fingerstickOrdered By: Shayy Curtis on 10-06-2024 INR Coag (BldC) [Relative time] 2.1 [facility] Comment on above: Critical Value > 4.0 Whole blood prothrombin time Ordered By: Shayy Curtis on 10-06-2024 PT Coag (Bld) [Time] 22.6 s High 11.7-14.9 [facility] Absolute lymphocyte countOrd ered By: Shayy Curtis on 10-05-2024 Lymphocytes Auto (Unsp spec) [#/Vol] 1.54 10*3/uL 0.83-4.51 [facility] Absolute neutrophil countOrd ered By: Shayy Curtis on 10-05-2024 Neutrophils (Bld) [#/Vol] 4.2 10*3/uL 2.0-7.7 [facility] Anion gap in Serum or Plasma Ordered By: Shayy Curtis on 10-05-2024 Anion gap [Moles/Vol] 10 mmol/L 5-15 [facility] Automated lymphocyte count a s percentage of total leukocytesOrdered By: Shayy Curtis on 10-05-2024 Lymphocytes/100 WBC Auto (Unsp spec) 23.8 % 19-41 [facility] BUN/creatinine ratioOrdered By: Shayy Curtis on 10-05-2024 Urea nitrogen/Creatinine [Mass ratio] 18.2 mg/mg 10-20 [facility] Basophil percentageOrdered B y: Shayy Curtis on 10-05-2024 Basophils/100 WBC (Bld) 0.6 % 0-1 [facility] Carbon dioxide, total [Moles /volume] in Central venous bloodOrdered By: Shayy Curtis on 10-05-2024 CO2 [Moles/Vol] 24.6 mmol/L 21.0-32.0 [facility] Chloride assayOrdered By: Hung Curtis on 10-05-2024 Chloride [Moles/Vol] 106 mmol/L 98-108 [facility] Eosinophil percentageOrdered By: Shayy Curtis on 10-05-2024 Eosinophils/100 WBC (Bld) 1.9 % 0-5 [facility] Erythrocyte distribution wid th ratioOrdered By: Shayy Curtis on 10-05-2024 Erythrocyte distribution width (RBC) [Ratio] 18.2 % High 11.6-14.6 [facility] Erythrocyte distribution wid th standard deviationOrdered By: holliesuchesirlanda Curtis on 10-05-2024 Erythrocyte distribution width (RBC) [Ratio] 52.4 fl High 35.1-43.9 [facility] Glomerular filtration rate ( GFR) estimation/1.73 sq m using serum, plasma, or whole bOrdered By: holliesuchesirlanda Curtis on 10-05-2024 GFR/1.73 sq M.predicted among non-blacks MDRD (S/P/Bld) [Vol rate/Area] 87 mL/min/{1.73_m2} >60 [facility] Comment on above: mL/min/1.73m2 CKD-EP I Creatinine Equation (2020) Hematocrit Auto (Bld) [Volum e fraction]Ordered By: holliesuchesirlanda Curtis 10-05-2024 Hematocrit (Bld) [Volume fraction] 35.0 % Low 40-54 [facility] Hemoglobin measurementOrdere d By: Shayy Curtis on 10-05-2024 Hemoglobin (Bld) [Mass/Vol] 11.0 g/dL Low 13.0-16.5 [facility] Immature granulocytes/100 WB C Auto (Bld)Ordered By: Shayy Curtis 10-05-2024 Immature granulocytes/100 WBC (Bld) 0.300 % 0.0-0.9 [facility] Comment on above: IG% - Immature Granu locytes (promyelocytes, myelocytes and metamyelocytes) > 1% indicates that a LEFT SHIFT is Present. MCV (mean corpuscular volume ) determinationOrdered By: Shayy Curtis on 10-05-2024 MCV (RBC) [Entitic vol] 78.8 fL Low 80-94 [facility] Mean corpuscular hemoglobin (MCH) determinationOrdered By: Shayy Curtis on 10-05-2024 MCH (RBC) [Entitic mass] 24.8 pg Low 27.0-32.0 [facility] Mean corpuscular hemoglobin concentration (MCHC) determinationOrdered By: Shayy Curtis on 10-05-2024 MCHC (RBC) [Mass/Vol] 31.4 g/dL Low 32-36 [facility] Mean platelet volume determi nationOrdered By: Shayy Bernalradha on 10-05-2024 Platelet mean volume (Bld) [Entitic vol] 10.3 fL 6.2-12.0 [facility] Monocyte percentageOrdered B y: Shayy Curtis on 10-05-2024 Monocytes/100 WBC (Bld) 8.5 % 0-10 [facility] Neutrophil percentageOrdered By: Shayy Bernalradha on 10-05-2024 Neutrophils/100 WBC (Bld) 64.9 % 47-70 [facility] Nucleated red blood cell per centageOrdered By: Shayy Curtis on 10-05-2024 Nucleated RBC/100 WBC (Bld) [Ratio] 0 % 0-5 [facility] Platelet countOrdered By: Hung Curtis on 10-05-2024 Platelets (Bld) [#/Vol] 235 10*3/uL 150-450 [facility] Potassium measurement (mass/ volume)Ordered By: Christineirlanda Salazartomyradha on 10-05-2024 Potassium (Unsp spec) [Mass/Vol] 4.1 mmol/L 3.3-5.1 [facility] RBC Auto (Bld) [#/Vol]Ordere d By: Shayy Curtis on 10-05-2024 RBC (Bld) [#/Vol] 4.44 10*6/uL Low 4.6-6.2 [facility] Serum creatinine measurement (mass/volume)Ordered By: Christineirlanda Salazartomyradha on 10-05-2024 Creatinine [Mass/Vol] 0.73 mg/dL 0.70-1.20 [facility] Serum glucose measurement (m ass/volume)Ordered By: Hunghollierobsonirlanda Salazartomyradha on 10-05-2024 Glucose [Mass/Vol] 90 mg/dL 70-99 [facility] Serum or plasma calcium alvaro urement (mass/volume)Ordered By: Shayy Curtis on 10-05-2024 Calcium [Mass/Vol] 8.7 mg/dL 7.6-11.0 [facility] Serum or plasma urea nitroge n measurement (mass/volume)Ordered By: Shayy Curtis on 10-05-2024 Urea nitrogen [Mass/Vol] 13 mg/dL 4-19 [facility] Sodium levelOrdered By: Latrice timmy Ever on 10-05-2024 Sodium [Moles/Vol] 140 mmol/L 133-145 [facility] White blood cell (WBC) count Ordered By: Shayy Curtis on 10-05-2024 WBC (Bld) [#/Vol] 6.5 10*3/uL 4.4-11.0 [facility] normalized rat io (INR) calculationOrdered By: Shayy Curtis on 09-29-2024 INR Coag (Bld) [Relative time] 3.3 {INR} [facility] Prothrombin timeOrdered By: Shayy Curtis on 09-29-2024 PT Coag (PPP) [Time] 34.4 s High 11.7-14.9 [facility] Absolute lymphocyte countOrd ered By: Shayy Curtis on 09-28-2024 Lymphocytes Auto (Unsp spec) [#/Vol] 1.41 10*3/uL 0.83-4.51 [facility] Absolute neutrophil countOrd ered By: Shayy Curtis on 09-28-2024 Neutrophils (Bld) [#/Vol] 4.8 10*3/uL 2.0-7.7 [facility] Anion gap in Serum or Plasma Ordered By: Shayy Curtis on 09-28-2024 Anion gap [Moles/Vol] 13 mmol/L 5-15 [facility] Automated lymphocyte count a s percentage of total leukocytesOrdered By: Shayy Curtis on 09-28-2024 Lymphocytes/100 WBC Auto (Unsp spec) 20.1 % 19-41 [facility] BUN/creatinine ratioOrdered By: Efbaldomero Curtis on 09-28-2024 Urea nitrogen/Creatinine [Mass ratio] 19.9 mg/mg 10-20 [facility] Basophil percentageOrdered B y: Shayy Martinsergio on 09-28-2024 Basophils/100 WBC (Bld) 0.6 % 0-1 [facility] Carbon dioxide, total [Moles /volume] in Central venous bloodOrdered By: Shayy Curtis on 09-28-2024 CO2 [Moles/Vol] 21.1 mmol/L 21.0-32.0 [facility] Chloride assayOrdered By: Hung connorirlanda Curtis on 09-28-2024 Chloride [Moles/Vol] 105 mmol/L 98-108 [facility] Eosinophil percentageOrdered By: Hungbaldomero Salazartoymradha on 09-28-2024 Eosinophils/100 WBC (Bld) 2.0 % 0-5 [facility] Erythrocyte distribution wid th ratioOrdered By: Latricerobsonirlanda Salazartomyradha on 09-28-2024 Erythrocyte distribution width (RBC) [Ratio] 18.3 % High 11.6-14.6 [facility] Erythrocyte distribution wid th standard deviationOrdered By: holliesuchesirlanda Salazartomyradha on 09-28-2024 Erythrocyte distribution width (RBC) [Ratio] 52.8 fl High 35.1-43.9 [facility] Glomerular filtration rate ( GFR) estimation/1.73 sq m using serum, plasma, or whole bOrdered By: Hungbaldomero Curtis on 09-28-2024 GFR/1.73 sq M.predicted among non-blacks MDRD (S/P/Bld) [Vol rate/Area] 88 mL/min/{1.73_m2} >60 [facility] Comment on above: mL/min/1.73m2 CKD-EP I Creatinine Equation (2020) Hematocrit Auto (Bld) [Volum e fraction]Ordered By: Shayy Curtis on 09-28-2024 Hematocrit (Bld) [Volume fraction] 37.0 % Low 40-54 [facility] Hemoglobin measurementOrdere d By: Shayy Curtis on 09-28-2024 Hemoglobin (Bld) [Mass/Vol] 11.5 g/dL Low 13.0-16.5 [facility] Immature granulocytes/100 WB C Auto (Bld)Ordered By: Shayy Curtis on 09-28-2024 Immature granulocytes/100 WBC (Bld) 0.300 % 0.0-0.9 [facility] Comment on above: IG% - Immature Granu locytes (promyelocytes, myelocytes and metamyelocytes) > 1% indicates that a LEFT SHIFT is Present. MCV (mean corpuscular volume ) determinationOrdered By: Shayy Curtis on 09-28-2024 MCV (RBC) [Entitic vol] 80.3 fL 80-94 [facility] Mean corpuscular hemoglobin (MCH) determinationOrdered By: Shayy Curtis on 09-28-2024 MCH (RBC) [Entitic mass] 24.9 pg Low 27.0-32.0 [facility] Mean corpuscular hemoglobin concentration (MCHC) determinationOrdered By: Shayy Curtis on 09-28-2024 MCHC (RBC) [Mass/Vol] 31.1 g/dL Low 32-36 [facility] Mean platelet volume determi nationOrdered By: Shayy Curtis on 09-28-2024 Platelet mean volume (Bld) [Entitic vol] 10.5 fL 6.2-12.0 [facility] Monocyte percentageOrdered B y: Shayy Curtis on 09-28-2024 Monocytes/100 WBC (Bld) 8.8 % 0-10 [facility] Neutrophil percentageOrdered By: baldomero Curtis on 09-28-2024 Neutrophils/100 WBC (Bld) 68.2 % 47-70 [facility] Nucleated red blood cell per centageOrdered By: baldomero Curtis on 09-28-2024 Nucleated RBC/100 WBC (Bld) [Ratio] 0 % 0-5 [facility] Platelet countOrdered By: Hung Curtis on 09-28-2024 Platelets (Bld) [#/Vol] 280 10*3/uL 150-450 [facility] Potassium measurement (mass/ volume)Ordered By: Shayy Curtis on 09-28-2024 Potassium (Unsp spec) [Mass/Vol] 4.0 mmol/L 3.3-5.1 [facility] RBC Auto (Bld) [#/Vol]Ordere d By: Shayy Curtis on 09-28-2024 RBC (Bld) [#/Vol] 4.61 10*6/uL 4.6-6.2 [facility] Serum creatinine measurement (mass/volume)Ordered By: Shayy Curtis on 09-28-2024 Creatinine [Mass/Vol] 0.71 mg/dL 0.70-1.20 [facility] Serum glucose measurement (m ass/volume)Ordered By: Shayy Curtis on 09-28-2024 Glucose [Mass/Vol] 91 mg/dL 70-99 [facility] Serum or plasma calcium alvaro urement (mass/volume)Ordered By: Shayy Curtis on 09-28-2024 Calcium [Mass/Vol] 8.9 mg/dL 7.6-11.0 [facility] Serum or plasma urea nitroge n measurement (mass/volume)Ordered By: Shayy Curtis on 09-28-2024 Urea nitrogen [Mass/Vol] 14 mg/dL 4-19 [facility] Sodium levelOrdered By: Latrice Curtis on 09-28-2024 Sodium [Moles/Vol] 140 mmol/L 133-145 [facility] White blood cell (WBC) count Ordered By: Shayy Curtis on 09-28-2024 WBC (Bld) [#/Vol] 7.0 10*3/uL 4.4-11.0 [facility] International normalized rat io (INR) measurement by fingerstickOrdered By: Shayy Curtis on 09-26-2024 INR Coag (BldC) [Relative time] 2.5 [facility] Comment on above: Critical Value > 4.0 Whole blood prothrombin time Ordered By: Shayy Curtis on 09-26-2024 PT Coag (Bld) [Time] 27.1 s High 11.7-14.9 [facility] International normalized rat io (INR) calculationOrdered By: Shayy Curtis on 09-23-2024 INR Coag (Bld) [Relative time] 2.0 {INR} [facility] Prothrombin timeOrdered By: Shayy Bernale on 09-23-2024 PT Coag (PPP) [Time] 23.5 s High 11.7-14.9 [facility] Absolute lymphocyte countOrd ered By: [facility] on 09-21-2024 Lymphocytes Auto (Unsp spec) [#/Vol] 1.35 10*3/uL 0.83-4.51 [facility] Absolute neutrophil countOrd ered By: holliesuchesirlanda Bernale on 09-21-2024 Neutrophils (Bld) [#/Vol] 4.3 10*3/uL 2.0-7.7 [facility] Anion gap in Serum or Plasma Ordered By: [facility] on 09-21-2024 Anion gap [Moles/Vol] 12 mmol/L 5-15 [facility] Automated lymphocyte count a s percentage of total leukocytesOrdered By: Shayy Curtis on 09-21-2024 Lymphocytes/100 WBC Auto (Unsp spec) 21.5 % 19-41 [facility] BUN/creatinine ratioOrdered By: [facility] on 09-21-2024 Urea nitrogen/Creatinine [Mass ratio] 15.8 mg/mg 10-20 [facility] Basophil percentageOrdered B y: baldomero Bernale on 09-21-2024 Basophils/100 WBC (Bld) 0.8 % 0-1 [facility] CNPNon 09-21-2024 [facility] ROBY FLORES ([id number]) 1935 M Date Time Provider Department 09/21/24 [facility] During your visit today, we recorded the following information about you: Petty Vargas 09/21/2024 9:23 AM Signed [facility]. 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 Encounter Status:Closed by MARTA PALACIO on 09/22/24 Normal [facility] Carbon dioxide, total [Moles /volume] in Central venous bloodOrdered By: Shayy Curtis on 09-21-2024 CO2 [Moles/Vol] 23.2 mmol/L 21.0-32.0 [facility] Chloride assayOrdered By: Hung Curtis on 09-21-2024 Chloride [Moles/Vol] 104 mmol/L 98-108 [facility] Eosinophil percentageOrdered By: Shayy Curtis on 09-21-2024 Eosinophils/100 WBC (Bld) 1.3 % 0-5 [facility] Erythrocyte distribution wid th ratioOrdered By: Shayy Curtis on 09-21-2024 Erythrocyte distribution width (RBC) [Ratio] 18.0 % High 11.6-14.6 [facility] Erythrocyte distribution wid th standard deviationOrdered By: holliesuchesirlanda Curtis on 09-21-2024 Erythrocyte distribution width (RBC) [Ratio] 50.8 fl High 35.1-43.9 [facility] Glomerular filtration rate ( GFR) estimation/1.73 sq m using serum, plasma, or whole bOrdered By: baldomero Curtis on 09-21-2024 GFR/1.73 sq M.predicted among non-blacks MDRD (S/P/Bld) [Vol rate/Area] 88 mL/min/{1.73_m2} >60 [facility] Comment on above: mL/min/1.73m2 CKD-EP I Creatinine Equation (2020) Hematocrit Auto (Bld) [Volum e fraction]Ordered By: Shayy Curtis on 09-21-2024 Hematocrit (Bld) [Volume fraction] 37.5 % Low 40-54 [facility] Hemoglobin measurementOrdere d By: Shayy Curtis on 09-21-2024 Hemoglobin (Bld) [Mass/Vol] 11.6 g/dL Low 13.0-16.5 [facility] Immature granulocytes/100 WB C Auto (Bld)Ordered By: baldomero Curtis 09-21-2024 Immature granulocytes/100 WBC (Bld) 0.300 % 0.0-0.9 [facility] Comment on above: IG% - Immature Granu locytes (promyelocytes, myelocytes and metamyelocytes) > 1% indicates that a LEFT SHIFT is Present. International normalized rat io (INR) calculationOrdered By: Shayy Curtis on 09-21-2024 INR Coag (Bld) [Relative time] 1.7 {INR} [facility] MCV (mean corpuscular volume ) determinationOrdered By: Shayy Curtis on 09-21-2024 MCV (RBC) [Entitic vol] 78.9 fL Low 80-94 [facility] Mean corpuscular hemoglobin (MCH) determinationOrdered By: Shayy Curtis on 09-21-2024 MCH (RBC) [Entitic mass] 24.4 pg Low 27.0-32.0 [facility] Mean corpuscular hemoglobin concentration (MCHC) determinationOrdered By: Shayy Curtis on 09-21-2024 MCHC (RBC) [Mass/Vol] 30.9 g/dL Low 32-36 [facility] Mean platelet volume determi nationOrdered By: Shayy Curtis on 09-21-2024 Platelet mean volume (Bld) [Entitic vol] 10.1 fL 6.2-12.0 [facility] Monocyte percentageOrdered B y: Shayy Curtis on 09-21-2024 Monocytes/100 WBC (Bld) 8.1 % 0-10 [facility] Neutrophil percentageOrdered By: holliesuchesirlanda Curtis on 09-21-2024 Neutrophils/100 WBC (Bld) 68.0 % 47-70 [facility] Nucleated red blood cell per centageOrdered By: Shayy Curtis on 09-21-2024 Nucleated RBC/100 WBC (Bld) [Ratio] 0 % 0-5 [facility] Platelet countOrdered By: Hung Curtis on 09-21-2024 Platelets (Bld) [#/Vol] 318 10*3/uL 150-450 [facility] Potassium measurement (mass/ volume)Ordered By: Shayy Curtis on 09-21-2024 Potassium (Unsp spec) [Mass/Vol] 4.0 mmol/L 3.3-5.1 [facility] Prothrombin timeOrdered By: Shayy Curtis on 09-21-2024 PT Coag (PPP) [Time] 20.6 s High 11.7-14.9 [facility] RBC Auto (Bld) [#/Vol]Ordere d By: Shayy Curtis on 09-21-2024 RBC (Bld) [#/Vol] 4.75 10*6/uL 4.6-6.2 [facility] Serum creatinine measurement (mass/volume)Ordered By: Shayy Curtis on 09-21-2024 Creatinine [Mass/Vol] 0.70 mg/dL 0.70-1.20 [facility] Serum glucose measurement (m ass/volume)Ordered By: Shayy Curtis on 09-21-2024 Glucose [Mass/Vol] 101 mg/dL High 70-99 [facility] Serum or plasma calcium alvaro urement (mass/volume)Ordered By: Shayy Curtis on 09-21-2024 Calcium [Mass/Vol] 9.2 mg/dL 7.6-11.0 [facility] Serum or plasma urea nitroge n measurement (mass/volume)Ordered By: Shayy Curtis on 09-21-2024 Urea nitrogen [Mass/Vol] 11 mg/dL 4-19 [facility] Sodium levelOrdered By: Latrice Curtis on 09-21-2024 Sodium [Moles/Vol] 139 mmol/L 133-145 [facility] White blood cell (WBC) count Ordered By: Shayy Curtis on 09-21-2024 WBC (Bld) [#/Vol] 6.3 10*3/uL 4.4-11.0 [facility] International normalized rat io (INR) measurement by fingerstickOrdered By: Shayy Curtis on 09-19-2024 INR Coag (BldC) [Relative time] 1.9 [facility] Comment on above: Critical Value > 4.0 Whole blood prothrombin time Ordered By: Shayy Curtis on 09-19-2024 PT Coag (Bld) [Time] 21.5 s High 11.7-14.9 [facility] International normalized rat io (INR) calculationOrdered By: Shayy Curtis on 09-15-2024 INR Coag (Bld) [Relative time] 2.1 {INR} [facility] Prothrombin timeOrdered By: Shayy Curtis on 09-15-2024 PT Coag (PPP) [Time] 24.2 s High 11.7-14.9 [facility] Absolute lymphocyte countOrd ered By: Hunghollietimmy Bernalradha on 09-14-2024 Lymphocytes Auto (Unsp spec) [#/Vol] 1.57 10*3/uL 0.83-4.51 [facility] Absolute neutrophil countOrd ered By: Hunghollietimmy Martintomyradha on 09-14-2024 Neutrophils (Bld) [#/Vol] 5.1 10*3/uL 2.0-7.7 [facility] Anion gap in Serum or Plasma Ordered By: Shayy Salazartomyradha on 09-14-2024 Anion gap [Moles/Vol] 12 mmol/L 5-15 [facility] Automated lymphocyte count a s percentage of total leukocytesOrdered By: Shayy Salazartomyradha on 09-14-2024 Lymphocytes/100 WBC Auto (Unsp spec) 20.8 % 19-41 [facility] BUN/creatinine ratioOrdered By: Latricetimmy Martintomyradha on 09-14-2024 Urea nitrogen/Creatinine [Mass ratio] 21.8 mg/mg High 10-20 [facility] Basophil percentageOrdered B y: Shayy Bernale on 09-14-2024 Basophils/100 WBC (Bld) 1.1 % High 0-1 [facility] Carbon dioxide, total [Moles /volume] in Central venous bloodOrdered By: Shayy Salazartomyradha on 09-14-2024 CO2 [Moles/Vol] 21.8 mmol/L 21.0-32.0 [facility] Chloride assayOrdered By: Hung hollietimmy Salazartomyradha on 09-14-2024 Chloride [Moles/Vol] 107 mmol/L 98-108 [facility] Eosinophil percentageOrdered By: Hunghollietimmy Martintomye on 09-14-2024 Eosinophils/100 WBC (Bld) 1.7 % 0-5 [facility] Erythrocyte distribution wid th ratioOrdered By: Shayy Martintomyradha on 09-14-2024 Erythrocyte distribution width (RBC) [Ratio] 17.7 % High 11.6-14.6 [facility] Erythrocyte distribution wid th standard deviationOrdered By: Shayy Curtis on 09-14-2024 Erythrocyte distribution width (RBC) [Ratio] 51.1 fl High 35.1-43.9 [facility] Glomerular filtration rate ( GFR) estimation/1.73 sq m using serum, plasma, or whole bOrdered By: Shayy Curtis on 09-14-2024 GFR/1.73 sq M.predicted among non-blacks MDRD (S/P/Bld) [Vol rate/Area] 87 mL/min/{1.73_m2} >60 [facility] Comment on above: mL/min/1.73m2 CKD-EP I Creatinine Equation (2020) Hematocrit Auto (Bld) [Volum e fraction]Ordered By: Shayy Curtis on 09-14-2024 Hematocrit (Bld) [Volume fraction] 34.7 % Low 40-54 [facility] Hemoglobin measurementOrdere d By: Shayy Curtis on 09-14-2024 Hemoglobin (Bld) [Mass/Vol] 10.7 g/dL Low 13.0-16.5 [facility] Immature granulocytes/100 WB C Auto (Bld)Ordered By: Shayy Curtis on 09-14-2024 Immature granulocytes/100 WBC (Bld) 0.400 % 0.0-0.9 [facility] Comment on above: IG% - Immature Granu locytes (promyelocytes, myelocytes and metamyelocytes) > 1% indicates that a LEFT SHIFT is Present. MCV (mean corpuscular volume ) determinationOrdered By: Shayy Curtis on 09-14-2024 MCV (RBC) [Entitic vol] 78.9 fL Low 80-94 [facility] Mean corpuscular hemoglobin (MCH) determinationOrdered By: baldomero Curtis 09-14-2024 MCH (RBC) [Entitic mass] 24.3 pg Low 27.0-32.0 [facility] Mean corpuscular hemoglobin concentration (MCHC) determinationOrdered By: Shayy Curtis on 09-14-2024 MCHC (RBC) [Mass/Vol] 30.8 g/dL Low 32-36 [facility] Mean platelet volume determi nationOrdered By: Shayy Curtis on 09-14-2024 Platelet mean volume (Bld) [Entitic vol] 10.6 fL 6.2-12.0 [facility] Monocyte percentageOrdered B y: Hunghollierobsonirlanda Salazartomyradha on 09-14-2024 Monocytes/100 WBC (Bld) 8.5 % 0-10 [facility] Neutrophil percentageOrdered By: Shayy Curtis on 09-14-2024 Neutrophils/100 WBC (Bld) 67.5 % 47-70 [facility] Nucleated red blood cell per centageOrdered By: Shayy Curtis on 09-14-2024 Nucleated RBC/100 WBC (Bld) [Ratio] 0 % 0-5 [facility] Platelet countOrdered By: Hung connorirlanda Curtis on 09-14-2024 Platelets (Bld) [#/Vol] 291 10*3/uL 150-450 [facility] Potassium measurement (mass/ volume)Ordered By: Shayy Curtis on 09-14-2024 Potassium (Unsp spec) [Mass/Vol] 4.0 mmol/L 3.3-5.1 [facility] RBC Auto (Bld) [#/Vol]Ordere d By: Shayy Curtis on 09-14-2024 RBC (Bld) [#/Vol] 4.40 10*6/uL Low 4.6-6.2 [facility] Serum creatinine measurement (mass/volume)Ordered By: Shayy Curtis on 09-14-2024 Creatinine [Mass/Vol] 0.74 mg/dL 0.70-1.20 [facility] Serum glucose measurement (m ass/volume)Ordered By: Shayy Curtis on 09-14-2024 Glucose [Mass/Vol] 99 mg/dL 70-99 [facility] Serum or plasma calcium alvaro urement (mass/volume)Ordered By: Shayy Curtis on 09-14-2024 Calcium [Mass/Vol] 8.6 mg/dL 7.6-11.0 [facility] Serum or plasma urea nitroge n measurement (mass/volume)Ordered By: Shayy Curtis on 09-14-2024 Urea nitrogen [Mass/Vol] 16 mg/dL 4- [facility] Sodium levelOrdered By: Latrice Curtis on 09-14-2024 Sodium [Moles/Vol] 141 mmol/L 133-145 [facility] White blood cell (WBC) count Ordered By: Latricerobsonirlanda Salazartomyradha on 09-14-2024 WBC (Bld) [#/Vol] 7.5 10*3/uL 4.4-11.0 [facility] International normalized rat io (INR) measurement by fingerstickOrdered By: Shayy Curtis on 09-12-2024 INR Coag (BldC) [Relative time] 3.2 [facility] Comment on above: Critical Value > 4.0 Whole blood prothrombin time Ordered By: Shayy Curtis on 09-12-2024 PT Coag (Bld) [Time] 33.0 s High 11.7-14.9 [facility] International normalized rat io (INR) measurement by fingerstickOrdered By: Shayy Salazartomyradha on 09-08-2024 INR Coag (BldC) [Relative time] 2.2 [facility] Comment on above: Critical Value > 4.0 Prothrombin Time w/INRon INR Normal [facility] Comment on above: Result Comment: Canc elled via OM: Order cancelled - Patient discharged Performed By: #### L 300.3900 #### [facility] [address] [place], [place], [id number] PROTIME Normal 11.7-14.9 [facility] Comment on above: Result Comment: Canc elled via OM: Order cancelled - Patient discharged Performed By: #### L 300.3900 #### [facility] [address] [place], [address] Whole blood prothrombin time Ordered By: Shayy Curtis on 09-08-2024 PT Coag (Bld) [Time] 23.8 s High 11.7-14.9 [facility] Anion gap in Serum or Plasma Ordered By: Shayy Curtis on 09-07-2024 Anion gap [Moles/Vol] 10 mmol/L 5-15 [facility] BUN/creatinine ratioOrdered By: Shayy Curtis on 09-07-2024 Urea nitrogen/Creatinine [Mass ratio] 14.0 mg/mg 10-20 [facility] Bilirubin, totalOrdered By: Shayy Curtis on 09-07-2024 Bilirubin [Mass/Vol] 1.02 mg/dL 0.00-1.30 [facility] Calculated very low density lipoprotein (VLDL) cholesterol measurementOrdered By: Shayy Curtis on 09-07-2024 Calculated very low density lipoprotein (VLDL) cholesterol measurement 13 mg/dL 5-40 [facility] Carbon dioxide, total [Moles /volume] in Central venous bloodOrdered By: Shayy Curtis on 09-07-2024 CO2 [Moles/Vol] 25.4 mmol/L 21.0-32.0 [facility] Chloride assayOrdered By: Hung Curtis on 09-07-2024 Chloride [Moles/Vol] 104 mmol/L 98-108 [facility] Culture, Blood (WB)on 2024 CUB No growth in 5 days. Normal [facility] Comment on above: Performed By: #### M 200.1000, L509.7001, L101.9900, L501.6710 #### [facility] [address] [place] [address]. [place], [place], [id number] Glomerular filtration rate ( GFR) estimation/1.73 sq m using serum, plasma, or whole bOrdered By: Shayy Curtis on 09-07-2024 GFR/1.73 sq M.predicted among non-blacks MDRD (S/P/Bld) [Vol rate/Area] 88 mL/min/{1.73_m2} >60 [facility] Comment on above: mL/min/1.73m2 CKD-EP I Creatinine Equation (2020) LDL calc ser/plasOrdered By: Shayy Curtis on 09-07-2024 Cholesterol in LDL [Mass/Vol] 64 mg/dL [facility] Comment on above: Ovefgrjuni=812-348 m g/dL & Higher Jkse=480 mg/dL or greater Laboratory - Chemistry and C hemistry - challengeOrdered By: Shayy Curtis on 09-07-2024 AST [Catalytic activity/Vol] 33 U/L <38 [facility] Potassium measurement (mass/ volume)Ordered By: Shayy Curtis on 09-07-2024 Potassium (Unsp spec) [Mass/Vol] 3.8 mmol/L 3.3-5.1 [facility] Prothrombin Time w/INRon INR Normal [facility] Comment on above: Result Comment: Canc elled via OM: Order cancelled - Patient discharged Performed By: #### L 300.3900 #### [facility] [address] [place], [place], [id number] PROTIME Normal 11.7-14.9 [facility] Comment on above: Result Comment: Canc elled via OM: Order cancelled - Patient discharged Performed By: #### L 300.3900 #### [facility] [address] [place], [address] Screening total cholesterol/ high density lipoprotein (HDL) cholesterol ratioOrdered By: Shayy Curtis on 09-07-2024 Cholesterol.total/Cho lesterol in HDL [Mass ratio] 3.75 {ratio} [facility] Serum creatinine measurement (mass/volume)Ordered By: Shayy Curtis on 09-07-2024 Creatinine [Mass/Vol] 0.70 mg/dL 0.70-1.20 [facility] Serum globulin measurementOr dered By: Shayy Curtis on 09-07-2024 Globulin (S) [Mass/Vol] 2.5 g/dL 2.2-4.2 [facility] Serum glucose measurement (m ass/volume)Ordered By: Shayy Curtis on 09-07-2024 Glucose [Mass/Vol] 107 mg/dL High 70-99 [facility] Serum or plasma alanine franks otransferase (ALT) measurementOrdered By: Shayy Curtis on 09-07-2024 ALT [Catalytic activity/Vol] 23 U/L <47 [facility] Serum or plasma albumin alvaro urement (mass/volume)Ordered By: Shayy Curtis on 09-07-2024 Albumin [Mass/Vol] 3.7 g/dL 3.4-4.8 [facility] Serum or plasma albumin/glob ulin mass ratioOrdered By: Shayy Curtis 09-07-2024 Albumin/Globulin [Mass ratio] 1.5 {ratio} 0.9-2.4 [facility] Serum or plasma alkaline carole sphatase measurementOrdered By: Hungbaldomero Curtis 09-07-2024 ALP [Catalytic activity/Vol] 123 U/L 40-129 [facility] Serum or plasma calcium alvaro urement (mass/volume)Ordered By: Shayy Salazartomyradha 09-07-2024 Calcium [Mass/Vol] 8.7 mg/dL 7.6-11.0 [facility] Serum or plasma cholesterol in HDL measurement (mass/volume)Ordered By: Shayy Curtis 09-07-2024 Cholesterol in HDL [Mass/Vol] 28 mg/dL Low >40 [facility] Comment on above: National Cholesterol Education Program (NCEP) guidelines:<40 mg/dL: Low HDL-cholesterol (major risk factor for CHD)>= 60 mg/dL: High HDL-cholesterol (negative risk factor for CHD)HDL-cholesterol is affected by a number of factors, e.g. smoking, exercise, hormones, sex and age. Serum or plasma cholesterol measurement (mass/volume)Ordered By: Shayy Curtis 09-07-2024 Cholesterol [Mass/Vol] 105 mg/dL <201 [facility] Comment on above: Cholesterol level, D esirable <200 mg/dLBorderline high cholesterol 200-239 mg/dLHigh cholesterol >=240 mg/dLRecommendations of the NCEP Adult Treatment Panel for the following risk-cutoff thresholds for the [place] population. Serum or plasma urea nitroge n measurement (mass/volume)Ordered By: Shayy Curtis 09-07-2024 Urea nitrogen [Mass/Vol] 10 mg/dL 4-19 [facility] Sodium levelOrdered By: Latrice Curtis on 09-07-2024 Sodium [Moles/Vol] 139 mmol/L 133-145 [facility] TSH DL <= 0.005 mIU/L QnOrde red By: Shayy Curtis on 09-07-2024 TSH Qn 0.300 uIU/mL 0.300-4.20 0 [facility] Total proteinOrdered By: Yazan bae Martinsergio on 09-07-2024 Protein [Mass/Vol] 6.2 g/dL 5.9-8.4 [facility] Triglycerides measurementOrd ered By: Shayy Curtis on 09-07-2024 Triglyceride [Mass/Vol] 63 mg/dL <199 [facility] Comment on above: The drugs N-Acetylcy steine and Metamizole may falsely depress this assay. Normal range: <150 mg/dLBorderline High: 150-199 mg/dLHigh: 200-499 mg/dLVery High: >500 mg/dL Vitamin B12 ser/plasOrdered By: Hunghollietimmy Martintomyradha on 09-07-2024 Cobalamin (Vitamin B12) [Mass/Vol] 519 pg/mL 180-914 [facility] Absolute lymphocyte countOrd ered By: Navid Dominguez on 09-06-2024 Lymphocytes Auto (Unsp spec) [#/Vol] 1.28 10*3/uL 0.83-4.51 [facility] Absolute neutrophil countOrd ered By: Navid Dominguez on 09-06-2024 Neutrophils (Bld) [#/Vol] 5.2 10*3/uL 2.0-7.7 [facility] Anion gap in Serum or Plasma Ordered By: Navid Dominguez on 09-06-2024 Anion gap [Moles/Vol] 10 mmol/L 5-15 [facility] Automated blood erythrocyte countOrdered By: Navid Dominguez on 09-06-2024 RBC (Bld) [#/Vol] 4.39 10*6/uL Low 4.6-6.2 [facility] Comment on above: Performed By: #### L 100.0100, L500.2500, L300.3900 #### [facility] [address] [place], [address] Automated blood hematocrit ( percentage)Ordered By: Navid Dominguez on 09-06-2024 Hematocrit (Bld) [Volume fraction] 33.6 % Low 40-54 [facility] Comment on above: Performed By: #### L 100.0100, L500.2500, L300.3900 #### [facility] [address] [place], [address] Automated lymphocyte count a s percentage of total leukocytesOrdered By: Navid Dominguez on 09-06-2024 Lymphocytes/100 WBC Auto (Unsp spec) 16.4 % Low 19-41 [facility] BUN/creatinine ratioOrdered By: Navid Dominguez on 09-06-2024 Urea nitrogen/Creatinine [Mass ratio] 14.4 mg/mg 10-20 [facility] Basic Metabolic Profile (BMP )on 09-06-2024 BUN/CRE 14.4 RATIO Normal 10-20 [facility] Comment on above: Performed By: #### M 200.1000, L509.7001, L101.9900, L501.6710 #### [facility] [address] [place], [address] ECRCL 64.10 ml/min Normal 50-250 [facility] Comment on above: Performed By: #### M 200.1000, L509.7001, L101.9900, L501.6710 #### [facility] [address] [place], [address] GAP 10 Normal 5-15 [facility] Comment on above: Performed By: #### M 200.1000, L509.7001, L101.9900, L501.6710 #### [facility] [address] [place], [address] Potassium [Moles/Vol] 3.5 mmol/L Normal 3.3-5.1 [facility] Comment on above: Performed By: #### M 200.1000, L509.7001, L101.9900, L501.6710 #### [facility] [address] [place], [address] Basophil percentageOrdered B y: Navid Dominguez on 09-06-2024 Basophils/100 WBC (Bld) 1.0 % Normal 0-1 [facility] Comment on above: Performed By: #### L 100.0100, L500.2500, L300.3900 #### [facility] [address] [place], [address] CBC W/Diff, Automatedon 08-21 Absolute Lymph 1.28 X10 3/uL Normal 0.83-4.51 [facility] Comment on above: Performed By: #### L 100.0100, L500.2500, L300.3900 #### [facility] [address] [place], [address] Absolute Neut 5.2 X10 3/uL Normal 2.0-7.7 [facility] Comment on above: Performed By: #### L 100.0100, L500.2500, L300.3900 #### [facility] [address] [place], [address] IG% 0.400 Normal 0.0-0.9 [facility] Comment on above: Result Comment: IG% - Immature Granulocytes (promyelocytes, myelocytes and metamyelocytes) > 1% indicates that a LEFT SHIFT is Present. Performed By: #### L 100.0100, L500.2500, L300.3900 #### [facility] [address] [place], [address] Lymphocytes/100 WBC (Bld) 16.4 % Low 19-41 [facility] Comment on above: Performed By: #### L 100.0100, L500.2500, L300.3900 #### [facility] [address] [place], [address] Nucleated RBC (Bld) [#/Vol] 0 10*3/uL Normal 0-5 [facility] Comment on above: Performed By: #### L 100.0100, L500.2500, L300.3900 #### [facility] [address] [place], [address] RDW SD 48.2 fl High 35.1-43.9 [facility] Comment on above: Performed By: #### L 100.0100, L500.2500, L300.3900 #### [facility] [address] [place], [address] Carbon dioxide, total [Moles /volume] in Central venous bloodOrdered By: Navid Dominguez on 09-06-2024 CO2 [Moles/Vol] 24.9 mmol/L Normal 21.0-32.0 [facility] Comment on above: Performed By: #### M 200.1000, L509.7001, L101.9900, L501.6710 #### [facility] [address] [place], [address] Chloride assayOrdered By: Cameron Dominguez on 09-06-2024 Chloride [Moles/Vol] 106 mmol/L Normal 98-108 [facility] Comment on above: Performed By: #### M 200.1000, L509.7001, L101.9900, L501.6710 #### [facility] [address] [place], [address] Eosinophil percentageOrdered By: Navid Dominguez on 09-06-2024 Eosinophils/100 WBC (Bld) 6.3 % High 0-5 [facility] Comment on above: Performed By: #### L 100.0100, L500.2500, L300.3900 #### [facility] [address] [place], [address] Erythrocyte distribution wid th ratioOrdered By: Navid Dominguez on 09-06-2024 Erythrocyte distribution width (RBC) [Ratio] 17.4 % High 11.6-14.6 [facility] Comment on above: Performed By: #### L 100.0100, L500.2500, L300.3900 #### [facility] [address] [place], [address] Erythrocyte distribution wid th standard deviationOrdered By: Navid Dominguez on 09-06-2024 Erythrocyte distribution width (RBC) [Ratio] 48.2 fl High 35.1-43.9 [facility] Glomerular filtration rate ( GFR) estimation/1.73 sq m using serum, plasma, or whole bOrdered By: Navid Dominguez on 09-06-2024 GFR/1.73 sq M.predicted among non-blacks MDRD (S/P/Bld) [Vol rate/Area] 87 mL/min/{1.73_m2} Normal >60 [facility] Comment on above: mL/min/1.73m2 CKD-EP I Creatinine Equation (2020) Result Comment: mL/m in/1.73m2 CKD-EPI Creatinine Equation (2020) Performed By: #### M 200.1000, L509.7001, L101.9900, L501.6710 #### [facility] [address] [place], [address] Hemoglobin measurementOrdere d By: Navid Dominguez on 09-06-2024 Hemoglobin (Bld) [Mass/Vol] 10.8 g/dL Low 13.0-16.5 [facility] Comment on above: Performed By: #### L 100.0100, L500.2500, L300.3900 #### [facility] [address] [place], [address] Immature granulocytes/100 WB C Auto (Bld)Ordered By: Navid Dominguez on 09-06-2024 Immature granulocytes/100 WBC (Bld) 0.400 % 0.0-0.9 [facility] Comment on above: IG% - Immature Granu locytes (promyelocytes, myelocytes and metamyelocytes) > 1% indicates that a LEFT SHIFT is Present. International normalized rat io (INR) calculationOrdered By: Navid Dominguez on 09-06-2024 INR Coag (Bld) [Relative time] 2.4 {INR} [facility] MCV (mean corpuscular volume ) determinationOrdered By: Navid Dominguez on 09-06-2024 MCV (RBC) [Entitic vol] 76.5 fL Low 80-94 [facility] Comment on above: Performed By: #### L 100.0100, L500.2500, L300.3900 #### [facility] [address] [place], [address] Mean corpuscular hemoglobin (MCH) determinationOrdered By: Navid Dominguez on 09-06-2024 MCH (RBC) [Entitic mass] 24.6 pg Low 27.0-32.0 [facility] Comment on above: Performed By: #### L 100.0100, L500.2500, L300.3900 #### [facility] [address] [place], [place], [address] Mean corpuscular hemoglobin concentration (MCHC) determinationOrdered By: Navid Dominguez on 09-06-2024 MCHC (RBC) [Mass/Vol] 32.1 g/dL Normal 32-36 [facility] Comment on above: Performed By: #### L 100.0100, L500.2500, L300.3900 #### [facility] [address] [place], [place], [id number] ([address] Mean platelet volume determi nationOrdered By: Navid Dominguez on 09-06-2024 Platelet mean volume (Bld) [Entitic vol] 9.4 fL Normal 6.2-12.0 [facility] Comment on above: Performed By: #### L 100.0100, L500.2500, L300.3900 #### [facility] [address] [place], [address] Monocyte percentageOrdered B y: Navid Dominguez on 09-06-2024 Monocytes/100 WBC (Bld) 9.1 % Normal 0-10 [facility] Comment on above: Performed By: #### L 100.0100, L500.2500, L300.3900 #### [facility] [address] [place], [address] Neutrophil percentageOrdered By: Navid Dominguez on 09-06-2024 Neutrophils/100 WBC (Bld) 66.8 % Normal 47-70 [facility] Comment on above: Performed By: #### L 100.0100, L500.2500, L300.3900 #### [facility] [address] [place], [address] Nucleated red blood cell per centageOrdered By: Navid Dominguez on 09-06-2024 Nucleated RBC/100 WBC (Bld) [Ratio] 0 % 0-5 [facility] Platelet countOrdered By: Cameron Dominguez on 09-06-2024 Platelets (Bld) [#/Vol] 325 10*3/uL Normal 150-450 [facility] Comment on above: Performed By: #### L 100.0100, L500.2500, L300.3900 #### [facility] [address] [place], [address] Potassium measurement (mass/ volume)Ordered By: Navid Dominguez on 09-06-2024 Potassium (Unsp spec) [Mass/Vol] 3.5 mmol/L 3.3-5.1 [facility] Prothrombin Time w/INRon INR Coag (PPP) [Relative time] 2.4 {INR} Normal [facility] Comment on above: Performed By: #### M 200.1000, L509.7001, L101.9900, L501.6710 #### [facility] [address] [place], [address] Prothrombin timeOrdered By: Navid Dominguez on 09-06-2024 PT Coag (PPP) [Time] 27.0 s High 11.7-14.9 [facility] Comment on above: Performed By: #### M 200.1000, L509.7001, L101.9900, L501.6710 #### [facility] [address] [place], [address] Serum creatinine measurement (mass/volume)Ordered By: Navid Dominguez on 09-06-2024 Creatinine [Mass/Vol] 0.73 mg/dL Normal 0.70-1.20 [facility] Comment on above: Performed By: #### M 200.1000, L509.7001, L101.9900, L501.6710 #### [facility] [address] [place], [address] Serum glucose measurement (m ass/volume)Ordered By: Navid Dominguez on 09-06-2024 Glucose [Mass/Vol] 109 mg/dL High 70-99 [facility] Comment on above: Performed By: #### M 200.1000, L509.7001, L101.9900, L501.6710 #### [facility] [address] [place], [address] Serum or plasma calcium alvaro urement (mass/volume)Ordered By: Navid Dominguez on 09-06-2024 Calcium [Mass/Vol] 8.7 mg/dL Normal 7.6-11.0 [facility] Comment on above: Performed By: #### M 200.1000, L509.7001, L101.9900, L501.6710 #### [facility] [address] [place], [address] Serum or plasma urea nitroge n measurement (mass/volume)Ordered By: Navid Dominguez on 09-06-2024 Urea nitrogen [Mass/Vol] 11 mg/dL Normal 4-19 [facility] Comment on above: Performed By: #### M 200.1000, L509.7001, L101.9900, L501.6710 #### [facility] [address] [place], [address] Sodium levelOrdered By: Kamilah Dominguez on 09-06-2024 Sodium [Moles/Vol] 141 mmol/L Normal 133-145 [facility] Comment on above: Performed By: #### M 200.1000, L509.7001, L101.9900, L501.6710 #### [facility] [address] [place], [address] White blood cell (WBC) count Ordered By: Navid Dominguez on 09-06-2024 WBC (Bld) [#/Vol] 7.8 10*3/uL Normal 4.4-11.0 [facility] Comment on above: Performed By: #### L 100.0100, L500.2500, L300.3900 #### [facility] [address] [place], [address] Basic Metabolic Profile (BMP )on 09-05-2024 BUN/CRE 13.4 RATIO Normal 10-20 [facility] Comment on above: Performed By: #### M 200.1000, L509.7001, L101.9900, L501.6710 #### [facility] [address] [place], [address] Calcium [Mass/Vol] 8.6 mg/dL Normal 7.6-11.0 [facility] Comment on above: Performed By: #### M 200.1000, L509.7001, L101.9900, L501.6710 #### [facility] [address] [place], [address] Chloride [Moles/Vol] 105 mmol/L Normal 98-108 [facility] Comment on above: Performed By: #### M 200.1000, L509.7001, L101.9900, L501.6710 #### [facility] [address] [place], [address] CO2 [Moles/Vol] 21.9 mmol/L Normal 21.0-32.0 [facility] Comment on above: Performed By: #### M 200.1000, L509.7001, L101.9900, L501.6710 #### [facility] [address] [place], [address] Creatinine [Mass/Vol] 0.62 mg/dL Low 0.70-1.20 [facility] Comment on above: Performed By: #### M 200.1000, L509.7001, L101.9900, L501.6710 #### [facility] [address] [place], [address] ECRCL 64.10 ml/min Normal 50-250 [facility] Comment on above: Performed By: #### M 200.1000, L509.7001, L101.9900, L501.6710 #### [facility] [address] [place], [address] GAP 12 Normal 5-15 [facility] Comment on above: Performed By: #### M 200.1000, L509.7001, L101.9900, L501.6710 #### [facility] [address] [place], [address] GFR/1.73 sq M.predicted among non-blacks MDRD (S/P/Bld) [Vol rate/Area] 91 mL/min/{1.73_m2} Normal >60 [facility] Comment on above: Result Comment: mL/m in/1.73m2 CKD-EPI Creatinine Equation (2020) Performed By: #### M 200.1000, L509.7001, L101.9900, L501.6710 #### [facility] [address] [place], [address] Glucose [Mass/Vol] 119 mg/dL High 70-99 [facility] Comment on above: Performed By: #### M 200.1000, L509.7001, L101.9900, L501.6710 #### [facility] [address] [place], [address] Potassium [Moles/Vol] 3.3 mmol/L Normal 3.3-5.1 [facility] Comment on above: Performed By: #### M 200.1000, L509.7001, L101.9900, L501.6710 #### [facility] [address] [place], [address] Sodium [Moles/Vol] 139 mmol/L Normal 133-145 [facility] Comment on above: Performed By: #### M 200.1000, L509.7001, L101.9900, L501.6710 #### [facility] [address] [place], [address] Urea nitrogen [Mass/Vol] 8 mg/dL Normal 4-19 [facility] Comment on above: Performed By: #### M 200.1000, L509.7001, L101.9900, L501.6710 #### [facility] [address] [place], [address] Bilirubin Test strip Ql (U)O rdered By: Marta Black on 09-05-2024 Bilirubin Ql (U) Negative Negative [facility] CBC W/Diff, Automatedon 08-21 Absolute Lymph 0.96 X10 3/uL Normal 0.83-4.51 [facility] Comment on above: Performed By: #### M 200.1000, L509.7001, L101.9900, L501.6710 #### [facility] [address] [place], [address] Absolute Neut 7.6 X10 3/uL Normal 2.0-7.7 [facility] Comment on above: Performed By: #### M 200.1000, L509.7001, L101.9900, L501.6710 #### [facility] [address] [place], [address] Basophils/100 WBC (Bld) 0.7 % Normal 0-1 [facility] Comment on above: Performed By: #### M 200.1000, L509.7001, L101.9900, L501.6710 #### [facility] [address] [place], [address] Eosinophils/100 WBC (Bld) 4.0 % Normal 0-5 [facility] Comment on above: Performed By: #### M 200.1000, L509.7001, L101.9900, L501.6710 #### [facility] [address] [place], [address] Erythrocyte distribution width (RBC) [Ratio] 17.6 % High 11.6-14.6 [facility] Comment on above: Performed By: #### M 200.1000, L509.7001, L101.9900, L501.6710 #### [facility] [address] [place], [address] Hematocrit (Bld) [Volume fraction] 35.3 % Low 40-54 [facility] Comment on above: Performed By: #### M 200.1000, L509.7001, L101.9900, L501.6710 #### [facility] [address] [place], [address] Hemoglobin (Bld) [Mass/Vol] 11.3 g/dL Low 13.0-16.5 [facility] Comment on above: Performed By: #### M 200.1000, L509.7001, L101.9900, L501.6710 #### [facility] [address] [place], [address] IG% 0.400 Normal 0.0-0.9 [facility] Comment on above: Result Comment: IG% - Immature Granulocytes (promyelocytes, myelocytes and metamyelocytes) > 1% indicates that a LEFT SHIFT is Present. Performed By: #### M 200.1000, L509.7001, L101.9900, L501.6710 #### [facility] [address] [place], [address] Lymphocytes/100 WBC (Bld) 9.8 % Low 19-41 [facility] Comment on above: Performed By: #### M 200.1000, L509.7001, L101.9900, L501.6710 #### [facility] [address] [place], [address] MCH (RBC) [Entitic mass] 24.4 pg Low 27.0-32.0 [facility] Comment on above: Performed By: #### M 200.1000, L509.7001, L101.9900, L501.6710 #### [facility] [address] [place], [address] MCHC (RBC) [Mass/Vol] 32.0 g/dL Normal 32-36 [facility] Comment on above: Performed By: #### M 200.1000, L509.7001, L101.9900, L501.6710 #### [facility] [address] [place], [address] MCV (RBC) [Entitic vol] 76.2 fL Low 80-94 [facility] Comment on above: Performed By: #### M 200.1000, L509.7001, L101.9900, L501.6710 #### [facility] [address] [place], [address] Monocytes/100 WBC (Bld) 7.9 % Normal 0-10 [facility] Comment on above: Performed By: #### M 200.1000, L509.7001, L101.9900, L501.6710 #### [facility] [address] [place], [address] Neutrophils/100 WBC (Bld) 77.2 % High 47-70 [facility] Comment on above: Performed By: #### M 200.1000, L509.7001, L101.9900, L501.6710 #### [facility] [address] [place], [address] Nucleated RBC (Bld) [#/Vol] 0 10*3/uL Normal 0-5 [facility] Comment on above: Performed By: #### M 200.1000, L509.7001, L101.9900, L501.6710 #### [facility] [address] [place], [address] Platelet mean volume (Bld) [Entitic vol] 9.3 fL Normal 6.2-12.0 [facility] Comment on above: Performed By: #### M 200.1000, L509.7001, L101.9900, L501.6710 #### [facility] [address] [place], [address] Platelets (Bld) [#/Vol] 329 10*3/uL Normal 150-450 [facility] Comment on above: Performed By: #### M 200.1000, L509.7001, L101.9900, L501.6710 #### [facility] [address] [place], [address] RBC (Bld) [#/Vol] 4.63 10*6/uL Normal 4.6-6.2 [place] [facility] Comment on above: Performed By: #### M 200.1000, L509.7001, L101.9900, L501.6710 #### [facility] [address] [place], [address] RDW SD 47.9 fl High 35.1-43.9 [facility] Comment on above: Performed By: #### M 200.1000, L509.7001, L101.9900, L501.6710 #### [facility] [address] [place], [address] WBC (Bld) [#/Vol] 9.8 10*3/uL Normal 4.4-11.0 [facility] Comment on above: Performed By: #### M 200.1000, L509.7001, L101.9900, L501.6710 #### [facility] [address] [place], [address] Ketones Test strip Ql (U)Ord ered By: Marta Black on 09-05-2024 Ketones Ql (U) Negative Negative [facility] Microscopic analysis of urin e for red blood cells (RBC)Ordered By: Marta Black on 09-05-2024 Microscopic analysis of urine for red blood cells (RBC) 0-5 SEEN /hpf 0-5 [facility] Mucus LM Ql (Urine sed)Order ed By: Marta Black on 09-05-2024 Mucus Ql (Urine sed) 0 SEEN /hpf [facility] Nitrite Test strip Ql (U)Ord ered By: Marta Balck on 09-05-2024 Nitrite Ql (U) Negative Negative [facility] Protein Test strip Ql (U)Ord ered By: Marta Black on 09-05-2024 Protein Ql (U) 15 mg/dl High Negative [facility] Prothrombin Time w/INRon INR Coag (PPP) [Relative time] 2.2 {INR} Normal [facility] Comment on above: Performed By: #### M 200.1000, L509.7001, L101.9900, L501.6710 #### [facility] [address] [place], [address] PT Coag (PPP) [Time] 24.7 s High 11.7-14.9 [facility] Comment on above: Performed By: #### M 200.1000, L509.7001, L101.9900, L501.6710 #### [facility] [address] [place], [address] Squamous epithelial cells de tection in urine sediment by light microscopyOrdered By: Marta Black on 09-05-2024 Epithelial cells.squamous LM Ql (Urine sed) 0 SEEN /hpf 0-5 [facility] Urinalysis, Completeon 09-05 BACTERIA RARE Normal None Seen [facility] Comment on above: Order Comment: CLEAN CATCH Performed By: #### M 200.1000, L509.7001, L101.9900, L501.6710 #### [facility] [address] [place], [address] RBC 0-5 SEEN Normal 0-5 [facility] Comment on above: Order Comment: CLEAN CATCH Performed By: #### M 200.1000, L509.7001, L101.9900, L501.6710 #### [facility] [address] [place], [address] WBC 0-5 SEEN Normal 0-5 [facility] Comment on above: Order Comment: CLEAN CATCH Performed By: #### M 200.1000, L509.7001, L101.9900, L501.6710 #### [facility] [address] [place], [address] BILIRUBIN URINE Negative Normal Negative [facility] Comment on above: Order Comment: CLEAN CATCH Performed By: #### M 200.1000, L509.7001, L101.9900, L501.6710 #### [facility] [address] [place], [address] Clarity (U) Clear Normal Clear [facility] Comment on above: Order Comment: CLEAN CATCH Performed By: #### M 200.1000, L509.7001, L101.9900, L501.6710 #### [facility] [address] [place], [address] Color (U) Straw Normal Yellow [facility] Comment on above: Order Comment: CLEAN CATCH Performed By: #### M 200.1000, L509.7001, L101.9900, L501.6710 #### [facility] [address] [place], [address] GLUCOSE, UR Normal Normal Normal [facility] Comment on above: Order Comment: CLEAN CATCH Performed By: #### M 200.1000, L509.7001, L101.9900, L501.6710 #### [facility] [address] [place], [address] KETONE UR Negative Normal Negative [facility] Comment on above: Order Comment: CLEAN CATCH Performed By: #### M 200.1000, L509.7001, L101.9900, L501.6710 #### [facility] [address] [place], [address] LEUK ESTERASE Negative Normal Negative [facility] Comment on above: Order Comment: CLEAN CATCH Performed By: #### M 200.1000, L509.7001, L101.9900, L501.6710 #### [facility] [address] [place], [address] Nitrite Ql (U) Negative Normal Negative [facility] Comment on above: Order Comment: CLEAN CATCH Performed By: #### M 200.1000, L509.7001, L101.9900, L501.6710 #### [facility] [address] [place], [address] OCCULT BLOOD-UR 25 /ul Abnormal Negative [facility] Comment on above: Order Comment: CLEAN CATCH Performed By: #### M 200.1000, L509.7001, L101.9900, L501.6710 #### [facility] [address] [place], [address] pH UR 7.0 Normal 5.0 - 8.0 [facility] Comment on above: Order Comment: CLEAN CATCH Performed By: #### M 200.1000, L509.7001, L101.9900, L501.6710 #### [facility] [address] [place], [address] PROT DIPSTX 15 mg/dl Abnormal Negative [facility] Comment on above: Order Comment: CLEAN CATCH Performed By: #### M 200.1000, L509.7001, L101.9900, L501.6710 #### [facility] [address] [place], [address] SP.GR. DIPSTX 1.005 Normal 1.002-1.03 0 [facility] Comment on above: Order Comment: CLEAN CATCH Performed By: #### M 200.1000, L509.7001, L101.9900, L501.6710 #### [facility] [address] [place], [address] UROBILI Normal Normal Normal [facility] Comment on above: Order Comment: CLEAN CATCH Performed By: #### M 200.1000, L509.7001, L101.9900, L501.6710 #### [facility] [address] [place], [address] EPI,SQUAMOUS 0 SEEN Normal 0-5 [facility] Comment on above: Order Comment: CLEAN CATCH Performed By: #### M 200.1000, L509.7001, L101.9900, L501.6710 #### [facility] [address] [place], [address] Mucus Ql (Urine sed) 0 SEEN Normal [facility] Comment on above: Order Comment: CLEAN CATCH Performed By: #### M 200.1000, L509.7001, L101.9900, L501.6710 #### [facility] [address] [place], [address] Urine clarityOrdered By: Magnolia Black on 09-05-2024 Clarity (U) Clear Clear [facility] Urine color determinationOrd ered By: Marta Black on 09-05-2024 Color (U) Straw Yellow [facility] Urine glucose detectionOrder ed By: Marta Black on 06-16-2025 Glucose Ql (U) Normal mg/dl Normal [facility] Urine leukocyte esterase det ection by dipstickOrdered By: Marta Black on 09-05-2024 Leukocyte esterase Test strip Ql (U) Negative Negative [facility] Urine pHOrdered By: Marta Black on 09-05-2024 pH (U) 7.0 [pH] 5.0 - 8.0 [facility] Urine sediment bacteria coun t by microscopy (number/high power field)Ordered By: Marta Black on 09-05-2024 Bacteria LM.HPF (Urine sed) [#/Area] RARE /hpf None Seen [facility] Urine specific gravity measu rementOrdered By: Marta Black on 09-05-2024 Specific gravity (U) [Rel density] 1.005 1.002-1.03 0 [facility] Urine urobilinogen measureme ntOrdered By: Marta Black on 09-05-2024 Urobilinogen Ql (U) Normal mg/dl Normal [facility] White blood cell countOrdere d By: Marta Black on 09-05-2024 White blood cell count 0-5 SEEN /hpf 0-5 [facility] Basic Metabolic Profile (BMP )on 09-04-2024 BUN/CRE 17.3 RATIO Normal 10-20 [facility] Comment on above: Performed By: #### M 200.1000, L509.7001, L101.9900, L501.6710 #### [facility] [address] [place], [address] Calcium [Mass/Vol] 8.2 mg/dL Normal 7.6-11.0 [facility] Comment on above: Performed By: #### M 200.1000, L509.7001, L101.9900, L501.6710 #### [facility] [address] [place], [address] Chloride [Moles/Vol] 107 mmol/L Normal 98-108 [facility] Comment on above: Performed By: #### M 200.1000, L509.7001, L101.9900, L501.6710 #### [facility] [address] [place], [address] CO2 [Moles/Vol] 20.9 mmol/L Low 21.0-32.0 [facility] Comment on above: Performed By: #### M 200.1000, L509.7001, L101.9900, L501.6710 #### [facility] [address] [place], [address] Creatinine [Mass/Vol] 0.72 mg/dL Normal 0.70-1.20 [facility] Comment on above: Performed By: #### M 200.1000, L509.7001, L101.9900, L501.6710 #### [facility] [address] [place], [address] ECRCL 64.10 ml/min Normal 50-250 [facility] Comment on above: Performed By: #### M 200.1000, L509.7001, L101.9900, L501.6710 #### [facility] [address] [place], [address] GAP 11 Normal 5-15 [facility] Comment on above: Performed By: #### M 200.1000, L509.7001, L101.9900, L501.6710 #### [facility] [address] [place], [address] GFR/1.73 sq M.predicted among non-blacks MDRD (S/P/Bld) [Vol rate/Area] 87 mL/min/{1.73_m2} Normal >60 [facility] Comment on above: Result Comment: mL/m in/1.73m2 CKD-EPI Creatinine Equation (2020) Performed By: #### M 200.1000, L509.7001, L101.9900, L501.6710 #### [facility] [address] [place], [address] Glucose [Mass/Vol] 120 mg/dL High 70-99 [facility] Comment on above: Performed By: #### M 200.1000, L509.7001, L101.9900, L501.6710 #### [facility] [address] [place], [address] Potassium [Moles/Vol] 3.5 mmol/L Normal 3.3-5.1 [facility] Comment on above: Performed By: #### M 200.1000, L509.7001, L101.9900, L501.6710 #### [facility] [address] [place], [address] Sodium [Moles/Vol] 139 mmol/L Normal 133-145 [facility] Comment on above: Performed By: #### M 200.1000, L509.7001, L101.9900, L501.6710 #### [facility] [address] [place], [address] Urea nitrogen [Mass/Vol] 12 mg/dL Normal 4-19 [facility] Comment on above: Performed By: #### M 200.1000, L509.7001, L101.9900, L501.6710 #### [facility] [address] [place], [address] CBC W/Diff, Automatedon 06-1 -2024 Absolute Lymph 0.89 X10 3/uL Normal 0.83-4.51 [facility] Comment on above: Performed By: #### M 200.1000, L509.7001, L101.9900, L501.6710 #### [facility] [address] [place], [address] Absolute Neut 8.9 X10 3/uL High 2.0-7.7 [facility] Comment on above: Performed By: #### M 200.1000, L509.7001, L101.9900, L501.6710 #### [facility] [address] [place], [address] Basophils/100 WBC (Bld) 0.8 % Normal 0-1 [facility] Comment on above: Performed By: #### M 200.1000, L509.7001, L101.9900, L501.6710 #### [facility] [address] [place], [address] Eosinophils/100 WBC (Bld) 5.3 % High 0-5 [facility] Comment on above: Performed By: #### M 200.1000, L509.7001, L101.9900, L501.6710 #### [facility] [address] [place], [address] Erythrocyte distribution width (RBC) [Ratio] 17.5 % High 11.6-14.6 [facility] Comment on above: Performed By: #### M 200.1000, L509.7001, L101.9900, L501.6710 #### [facility] [address] [place], [address] Hematocrit (Bld) [Volume fraction] 33.3 % Low 40-54 [facility] Comment on above: Performed By: #### M 200.1000, L509.7001, L101.9900, L501.6710 #### [facility] [address] [place], [address] Hemoglobin (Bld) [Mass/Vol] 10.7 g/dL Low 13.0-16.5 [facility] Comment on above: Performed By: #### M 200.1000, L509.7001, L101.9900, L501.6710 #### [facility] [address] [place], [address] IG% 0.400 Normal 0.0-0.9 [facility] Comment on above: Result Comment: IG% - Immature Granulocytes (promyelocytes, myelocytes and metamyelocytes) > 1% indicates that a LEFT SHIFT is Present. Performed By: #### M 200.1000, L509.7001, L101.9900, L501.6710 #### [facility] [address] [place], [address] Lymphocytes/100 WBC (Bld) 7.8 % Low 19-41 [facility] Comment on above: Performed By: #### M 200.1000, L509.7001, L101.9900, L501.6710 #### [facility] [address] [place], [address] MCH (RBC) [Entitic mass] 24.6 pg Low 27.0-32.0 [facility] Comment on above: Performed By: #### M 200.1000, L509.7001, L101.9900, L501.6710 #### [facility] [address] [place], [address] MCHC (RBC) [Mass/Vol] 32.1 g/dL Normal 32-36 [facility] Comment on above: Performed By: #### M 200.1000, L509.7001, L101.9900, L501.6710 #### [facility] [address] [place], [address] MCV (RBC) [Entitic vol] 76.6 fL Low 80-94 [facility] Comment on above: Performed By: #### M 200.1000, L509.7001, L101.9900, L501.6710 #### [facility] [address] [place], [address] Monocytes/100 WBC (Bld) 7.7 % Normal 0-10 [facility] Comment on above: Performed By: #### M 200.1000, L509.7001, L101.9900, L501.6710 #### [facility] [address] [place], [address] Neutrophils/100 WBC (Bld) 78.0 % High 47-70 [facility] Comment on above: Performed By: #### M 200.1000, L509.7001, L101.9900, L501.6710 #### [facility] [address] [place], [address] Nucleated RBC (Bld) [#/Vol] 0 10*3/uL Normal 0-5 [facility] Comment on above: Performed By: #### M 200.1000, L509.7001, L101.9900, L501.6710 #### [facility] [address] [place], [address] Platelet mean volume (Bld) [Entitic vol] 10.6 fL Normal 6.2-12.0 [facility] Comment on above: Performed By: #### M 200.1000, L509.7001, L101.9900, L501.6710 #### [facility] [address] [place], [address] Platelets (Bld) [#/Vol] 305 10*3/uL Normal 150-450 [facility] Comment on above: Performed By: #### M 200.1000, L509.7001, L101.9900, L501.6710 #### [facility] [address] [place], [address] RBC (Bld) [#/Vol] 4.35 10*6/uL Low 4.6-6.2 [facility] Comment on above: Performed By: #### M 200.1000, L509.7001, L101.9900, L501.6710 #### [facility] [address] [place], [address] RDW SD 48.3 fl High 35.1-43.9 [facility] Comment on above: Performed By: #### M 200.1000, L509.7001, L101.9900, L501.6710 #### [facility] [address] [place], [address] WBC (Bld) [#/Vol] 11.4 10*3/uL High 4.4-11.0 [facility] Comment on above: Performed By: #### M 200.1000, L509.7001, L101.9900, L501.6710 #### [facility] [address] [place], [address] Prothrombin Time w/INRon INR Coag (PPP) [Relative time] 1.9 {INR} Normal [facility] Comment on above: Performed By: #### L 300.3900 #### [facility] [address] [place], [address] PT Coag (PPP) [Time] 21.8 s High 11.7-14.9 [facility] Comment on above: Performed By: #### L 300.3900 #### [facility] [address] [place], [address] Basic Metabolic Profile (BMP )on 09-03-2024 BUN/CRE 13.3 RATIO Normal 10-20 [facility] Comment on above: Performed By: #### M 200.1000, L509.7001, L101.9900, L501.6710 #### [facility] [address] [place], [address] Calcium [Mass/Vol] 8.5 mg/dL Normal 7.6-11.0 [facility] Comment on above: Performed By: #### M 200.1000, L509.7001, L101.9900, L501.6710 #### [facility] [address] [place], [address] Chloride [Moles/Vol] 104 mmol/L Normal 98-108 [facility] Comment on above: Performed By: #### M 200.1000, L509.7001, L101.9900, L501.6710 #### [facility] [address] [place], [address] CO2 [Moles/Vol] 19.1 mmol/L Low 21.0-32.0 [facility] Comment on above: Performed By: #### M 200.1000, L509.7001, L101.9900, L501.6710 #### [facility] [address] [place], [address] Creatinine [Mass/Vol] 0.74 mg/dL Normal 0.70-1.20 [facility] Comment on above: Performed By: #### M 200.1000, L509.7001, L101.9900, L501.6710 #### [facility] [address] [place], [address] ECRCL 64.10 ml/min Normal 50-250 [facility] Comment on above: Performed By: #### M 200.1000, L509.7001, L101.9900, L501.6710 #### [facility] [address] [place], [address] GAP 13 Normal 5-15 [facility] Comment on above: Performed By: #### M 200.1000, L509.7001, L101.9900, L501.6710 #### [facility] [address] [place], [address] GFR/1.73 sq M.predicted among non-blacks MDRD (S/P/Bld) [Vol rate/Area] 87 mL/min/{1.73_m2} Normal >60 [facility] Comment on above: Result Comment: mL/m in/1.73m2 CKD-EPI Creatinine Equation (2020) Performed By: #### M 200.1000, L509.7001, L101.9900, L501.6710 #### [facility] [address] [place], [address] Glucose [Mass/Vol] 111 mg/dL High 70-99 [facility] Comment on above: Performed By: #### M 200.1000, L509.7001, L101.9900, L501.6710 #### [facility] [address] [place], [address] Potassium [Moles/Vol] 3.5 mmol/L Normal 3.3-5.1 [facility] Comment on above: Performed By: #### M 200.1000, L509.7001, L101.9900, L501.6710 #### [facility] [address] [place], [address] Sodium [Moles/Vol] 137 mmol/L Normal 133-145 [facility] Comment on above: Performed By: #### M 200.1000, L509.7001, L101.9900, L501.6710 #### [facility] [address] [place], [address] Urea nitrogen [Mass/Vol] 10 mg/dL Normal 4-19 [facility] Comment on above: Performed By: #### M 200.1000, L509.7001, L101.9900, L501.6710 #### [facility] [address] [place], [address] CBC W/Diff, Automatedon - Absolute Lymph 0.82 X10 3/uL Low 0.83-4.51 [facility] Comment on above: Performed By: #### M 200.1000, L509.7001, L101.9900, L501.6710 #### [facility] [address] [place], [address] Absolute Neut 10.2 X10 3/uL High 2.0-7.7 [facility] Comment on above: Performed By: #### M 200.1000, L509.7001, L101.9900, L501.6710 #### [facility] [address] [place], [address] Basophils/100 WBC (Bld) 0.7 % Normal 0-1 [facility] Comment on above: Performed By: #### M 200.1000, L509.7001, L101.9900, L501.6710 #### [facility] [address] [place], [address] Eosinophils/100 WBC (Bld) 2.8 % Normal 0-5 [facility] Comment on above: Performed By: #### M 200.1000, L509.7001, L101.9900, L501.6710 #### [facility] [address] [place], [address] Erythrocyte distribution width (RBC) [Ratio] 17.5 % High 11.6-14.6 [facility] Comment on above: Performed By: #### M 200.1000, L509.7001, L101.9900, L501.6710 #### [facility] [address] [place], [address] Hematocrit (Bld) [Volume fraction] 35.6 % Low 40-54 [facility] Comment on above: Performed By: #### M 200.1000, L509.7001, L101.9900, L501.6710 #### [facility] [address] [place], [address] Hemoglobin (Bld) [Mass/Vol] 11.3 g/dL Low 13.0-16.5 [facility] Comment on above: Performed By: #### M 200.1000, L509.7001, L101.9900, L501.6710 #### [facility] [address] [place], [address] IG% 0.400 Normal 0.0-0.9 [facility] Comment on above: Result Comment: IG% - Immature Granulocytes (promyelocytes, myelocytes and metamyelocytes) > 1% indicates that a LEFT SHIFT is Present. Performed By: #### M 200.1000, L509.7001, L101.9900, L501.6710 #### [facility] [address] [place], [address] Lymphocytes/100 WBC (Bld) 6.7 % Low 19-41 [facility] Comment on above: Performed By: #### M 200.1000, L509.7001, L101.9900, L501.6710 #### [facility] [address] [place], [address] MCH (RBC) [Entitic mass] 24.7 pg Low 27.0-32.0 [facility] Comment on above: Performed By: #### M 200.1000, L509.7001, L101.9900, L501.6710 #### [facility] [address] [place], [address] MCHC (RBC) [Mass/Vol] 31.7 g/dL Low 32-36 [facility] Comment on above: Performed By: #### M 200.1000, L509.7001, L101.9900, L501.6710 #### [facility] [address] [place], [address] MCV (RBC) [Entitic vol] 77.7 fL Low 80-94 [facility] Comment on above: Performed By: #### M 200.1000, L509.7001, L101.9900, L501.6710 #### [facility] [address] [place], [address] Monocytes/100 WBC (Bld) 6.0 % Normal 0-10 [facility] Comment on above: Performed By: #### M 200.1000, L509.7001, L101.9900, L501.6710 #### [facility] [address] [place], [address] Neutrophils/100 WBC (Bld) 83.4 % High 47-70 [facility] Comment on above: Performed By: #### M 200.1000, L509.7001, L101.9900, L501.6710 #### [facility] [address] [place], [address] Nucleated RBC (Bld) [#/Vol] 0 10*3/uL Normal 0-5 [facility] Comment on above: Performed By: #### M 200.1000, L509.7001, L101.9900, L501.6710 #### [facility] [address] [place], [address] Platelet mean volume (Bld) [Entitic vol] 9.9 fL Normal 6.2-12.0 [facility] Comment on above: Performed By: #### M 200.1000, L509.7001, L101.9900, L501.6710 #### [facility] [address] [place], [address] Platelets (Bld) [#/Vol] 252 10*3/uL Normal 150-450 [facility] Comment on above: Performed By: #### M 200.1000, L509.7001, L101.9900, L501.6710 #### [facility] [address] [place], [address] RBC (Bld) [#/Vol] 4.58 10*6/uL Low 4.6-6.2 [facility] Comment on above: Performed By: #### M 200.1000, L509.7001, L101.9900, L501.6710 #### [facility] [address] [place], [address] RDW SD 48.2 fl High 35.1-43.9 [facility] Comment on above: Performed By: #### M 200.1000, L509.7001, L101.9900, L501.6710 #### [facility] [address] [place], [address] WBC (Bld) [#/Vol] 12.3 10*3/uL High 4.4-11.0 [facility] Comment on above: Performed By: #### M 200.1000, L509.7001, L101.9900, L501.6710 #### [facility] [address] [place], [address] Prothrombin Time w/INRon INR Coag (PPP) [Relative time] 1.8 {INR} Normal [facility] Comment on above: Performed By: #### L 300.3900 #### [facility] [address] [place], [address] PT Coag (PPP) [Time] 20.9 s High 11.7-14.9 [facility] Comment on above: Performed By: #### L 300.3900 #### [facility] [address] [place], [address] Trough vancomycin levelOrder ed By: Marta Black on 09-03-2024 Vancomycin trough [Mass/Vol] 8.2 ug/mL 5.0-15.0 [facility] Comment on above: Recommended goal tro ugh [...] therapy recommended for serious lifethreatening infections include:- Bgwhpazdor-Lnbnierfkusm-Jehrgltva (Ventilator/Healtcare Associated)-Sepsis PLEASE CONTACT PHARMACY SERVICES (#[id number]) FOR INTERPRETATIONOF RESULTS. Vancomycin, Trough Levelon 0 09-03-2024 VANCO, TROUGH 8.2 ug/mL Normal 5.0-15.0 [facility] Comment on above: Order Comment: Comme nts: Trough to be drawn 30 mins prior to scheduled [id number] Result Comment: Ilya mmended goal trough ranges [...] (Ventilator/Healtcare Associated) -Sepsis PLEASE CONTACT PHARMACY SERVICES (#[id number]) FOR INTERPRETATION OF RESULTS. Performed By: #### M 200.1000, L509.7001, L101.9900, L501.6710 #### [facility] [address] [place], [address] Basic Metabolic Profile (BMP )on 09-02-2024 BUN/CRE 18.9 RATIO Normal 10-20 [facility] Comment on above: Performed By: #### M 200.1000, L509.7001, L101.9900, L501.6710 #### [facility] [address] [place], [address] Calcium [Mass/Vol] 8.5 mg/dL Normal 7.6-11.0 [facility] Comment on above: Performed By: #### M 200.1000, L509.7001, L101.9900, L501.6710 #### [facility] [address] [place], [address] Chloride [Moles/Vol] 105 mmol/L Normal 98-108 [facility] Comment on above: Performed By: #### M 200.1000, L509.7001, L101.9900, L501.6710 #### [facility] [address] [place], [address] CO2 [Moles/Vol] 14.2 mmol/L Low 21.0-32.0 [facility] Comment on above: Performed By: #### M 200.1000, L509.7001, L101.9900, L501.6710 #### [facility] [address] [place], [address] Creatinine [Mass/Vol] 0.75 mg/dL Normal 0.70-1.20 [facility] Comment on above: Performed By: #### M 200.1000, L509.7001, L101.9900, L501.6710 #### [facility] [address] [place], [address] ECRCL 64.10 ml/min Normal 50-250 [facility] Comment on above: Performed By: #### M 200.1000, L509.7001, L101.9900, L501.6710 #### [facility] [address] [place], [address] GAP 15 Normal 5-15 [facility] Comment on above: Performed By: #### M 200.1000, L509.7001, L101.9900, L501.6710 #### [facility] [address] [place], [address] GFR/1.73 sq M.predicted among non-blacks MDRD (S/P/Bld) [Vol rate/Area] 86 mL/min/{1.73_m2} Normal >60 [facility] Comment on above: Result Comment: mL/m in/1.73m2 CKD-EPI Creatinine Equation (2020) Performed By: #### M 200.1000, L509.7001, L101.9900, L501.6710 #### [facility] [address] [place], [address] Glucose [Mass/Vol] 105 mg/dL High 70-99 [facility] Comment on above: Performed By: #### M 200.1000, L509.7001, L101.9900, L501.6710 #### [facility] [address] [place], [address] Potassium [Moles/Vol] 4.3 mmol/L Normal 3.3-5.1 [facility] Comment on above: Result Comment: Hemo lysis present, Results??could be affected. ?? Performed By: #### M 200.1000, L509.7001, L101.9900, L501.6710 #### [facility] [address] [place], [address] Sodium [Moles/Vol] 135 mmol/L Normal 133-145 [facility] Comment on above: Performed By: #### M 200.1000, L509.7001, L101.9900, L501.6710 #### [facility] [address] [place], [address] Urea nitrogen [Mass/Vol] 14 mg/dL Normal 4-19 [facility] Comment on above: Performed By: #### M 200.1000, L509.7001, L101.9900, L501.6710 #### [facility] [address] [place], [address] CBC W/Diff, Automatedon 06-1 -2024 Absolute Lymph 0.52 X10 3/uL Low 0.83-4.51 [facility] Comment on above: Performed By: #### M 200.1000, L509.7001, L101.9900, L501.6710 #### [facility] [address] [place], [address] Absolute Neut 12.1 X10 3/uL High 2.0-7.7 [facility] Comment on above: Performed By: #### M 200.1000, L509.7001, L101.9900, L501.6710 #### [facility] [address] [place], [address] Basophils/100 WBC (Bld) 0.6 % Normal 0-1 [facility] Comment on above: Performed By: #### M 200.1000, L509.7001, L101.9900, L501.6710 #### [facility] [address] [place], [address] Eosinophils/100 WBC (Bld) 2.2 % Normal 0-5 [facility] Comment on above: Performed By: #### M 200.1000, L509.7001, L101.9900, L501.6710 #### [facility] [address] [place], [address] Erythrocyte distribution width (RBC) [Ratio] 17.8 % High 11.6-14.6 [facility] Comment on above: Performed By: #### M 200.1000, L509.7001, L101.9900, L501.6710 #### [facility] [address] [place], [address] Hematocrit (Bld) [Volume fraction] 39.9 % Low 40-54 [facility] Comment on above: Performed By: #### M 200.1000, L509.7001, L101.9900, L501.6710 #### [facility] [address] [place], [address] Hemoglobin (Bld) [Mass/Vol] 11.9 g/dL Low 13.0-16.5 [facility] Comment on above: Performed By: #### M 200.1000, L509.7001, L101.9900, L501.6710 #### [facility] [address] [place], [address] IG% 0.700 Normal 0.0-0.9 [facility] Comment on above: Result Comment: IG% - Immature Granulocytes (promyelocytes, myelocytes and metamyelocytes) > 1% indicates that a LEFT SHIFT is Present. Performed By: #### M 200.1000, L509.7001, L101.9900, L501.6710 #### [facility] [address] [place], [address] Lymphocytes/100 WBC (Bld) 3.8 % Low 19-41 [facility] Comment on above: Performed By: #### M 200.1000, L509.7001, L101.9900, L501.6710 #### [facility] [address] [place], [address] MCH (RBC) [Entitic mass] 24.5 pg Low 27.0-32.0 [facility] Comment on above: Performed By: #### M 200.1000, L509.7001, L101.9900, L501.6710 #### [facility] [address] [place], [address] MCHC (RBC) [Mass/Vol] 29.8 g/dL Low 32-36 [facility] Comment on above: Performed By: #### M 200.1000, L509.7001, L101.9900, L501.6710 #### [facility] [address] [place], [address] MCV (RBC) [Entitic vol] 82.3 fL Normal 80-94 [facility] Comment on above: Performed By: #### M 200.1000, L509.7001, L101.9900, L501.6710 #### [facility] [address] [place], [address] Monocytes/100 WBC (Bld) 4.8 % Normal 0-10 [facility] Comment on above: Performed By: #### M 200.1000, L509.7001, L101.9900, L501.6710 #### [facility] [address] [place], [address] Neutrophils/100 WBC (Bld) 87.9 % High 47-70 [facility] Comment on above: Performed By: #### M 200.1000, L509.7001, L101.9900, L501.6710 #### [facility] [address] [place], [address] Nucleated RBC (Bld) [#/Vol] 0 10*3/uL Normal 0-5 [facility] Comment on above: Performed By: #### M 200.1000, L509.7001, L101.9900, L501.6710 #### [facility] [address] [place], [address] Platelet mean volume (Bld) [Entitic vol] 10.6 fL Normal 6.2-12.0 [facility] Comment on above: Performed By: #### M 200.1000, L509.7001, L101.9900, L501.6710 #### [facility] [address] [place], [address] Platelets (Bld) [#/Vol] 227 10*3/uL Normal 150-450 [facility] Comment on above: Performed By: #### M 200.1000, L509.7001, L101.9900, L501.6710 #### [facility] [address] [place], [address] RBC (Bld) [#/Vol] 4.85 10*6/uL Normal 4.6-6.2 [facility] Comment on above: Performed By: #### M 200.1000, L509.7001, L101.9900, L501.6710 #### [facility] [address] [place], [address] RDW SD 52.3 fl High 35.1-43.9 [facility] Comment on above: Performed By: #### M 200.1000, L509.7001, L101.9900, L501.6710 #### [facility] [address] [place], [address] WBC (Bld) [#/Vol] 13.8 10*3/uL High 4.4-11.0 [facility] Comment on above: Performed By: #### M 200.1000, L509.7001, L101.9900, L501.6710 #### [facility] [address] [place], [address] Prothrombin Time w/INRon INR Coag (PPP) [Relative time] 1.9 {INR} Normal [facility] Comment on above: Performed By: #### M 200.1000, L509.7001, L101.9900, L501.6710 #### [facility] [address] [place], [address] PT Coag (PPP) [Time] 22.1 s High 11.7-14.9 [facility] Comment on above: Performed By: #### M 200.1000, L509.7001, L101.9900, L501.6710 #### [facility] [address] [place], [address] RESPIRATORY PANEL MOLECULARo n 09-02-2024 RP PANEL [...] RSV B Not Detected Normal [facility] Comment on above: Performed By: #### M 200.1000, L509.7001, L101.9900, L501.6710 #### [facility] [address] [place], [address] Absolute lymphocyte countOrd ered By: Inderjit Gillespie on 09-01-2024 Lymphocytes Auto (Unsp spec) [#/Vol] 0.62 10*3/uL Low 0.83-4.51 [facility] Absolute neutrophil countOrd ered By: Inderjit Gillespie on 09-01-2024 Neutrophils (Bld) [#/Vol] 11.3 10*3/uL High 2.0-7.7 [facility] Anion gap in Serum or Plasma Ordered By: Inderjit Gillespie on 09-01-2024 Anion gap [Moles/Vol] 10 mmol/L 5-15 [facility] Automated lymphocyte count a s percentage of total leukocytesOrdered By: Inderjit Gillespie on 09-01-2024 Lymphocytes/100 WBC Auto (Unsp spec) 4.8 % Low 19-41 [facility] BUN/creatinine ratioOrdered By: Inderjit Gillespie on 09-01-2024 Urea nitrogen/Creatinine [Mass ratio] 21.6 mg/mg High 10-20 [facility] Basic Metabolic Profile (BMP )on 09-01-2024 BUN/CRE 21.6 RATIO High 10-20 [facility] Comment on above: Performed By: #### M 200.1000, L509.7001, L101.9900, L501.6710 #### [facility] [address] [place], [address] Calcium [Mass/Vol] 8.8 mg/dL Normal 7.6-11.0 [facility] Comment on above: Performed By: #### M 200.1000, L509.7001, L101.9900, L501.6710 #### [facility] [address] [place], [address] Chloride [Moles/Vol] 105 mmol/L Normal 98-108 [facility] Comment on above: Performed By: #### M 200.1000, L509.7001, L101.9900, L501.6710 #### [facility] [address] [place], [address] CO2 [Moles/Vol] 24.3 mmol/L Normal 21.0-32.0 [facility] Comment on above: Performed By: #### M 200.1000, L509.7001, L101.9900, L501.6710 #### [facility] [address] [place], [address] Creatinine [Mass/Vol] 0.77 mg/dL Normal 0.70-1.20 [facility] Comment on above: Performed By: #### M 200.1000, L509.7001, L101.9900, L501.6710 #### [facility] [address] [place], [address] ECRCL 68.71 ml/min Normal 50-250 [facility] Comment on above: Performed By: #### M 200.1000, L509.7001, L101.9900, L501.6710 #### [facility] [address] [place], [address] GAP 10 Normal 5-15 [facility] Comment on above: Performed By: #### M 200.1000, L509.7001, L101.9900, L501.6710 #### [facility] [address] [place], [address] GFR/1.73 sq M.predicted among non-blacks MDRD (S/P/Bld) [Vol rate/Area] 86 mL/min/{1.73_m2} Normal >60 [facility] Comment on above: Result Comment: mL/m in/1.73m2 CKD-EPI Creatinine Equation (2020) Performed By: #### M 200.1000, L509.7001, L101.9900, L501.6710 #### [facility] [address] [place], [address] Glucose [Mass/Vol] 112 mg/dL High 70-99 [facility] Comment on above: Performed By: #### M 200.1000, L509.7001, L101.9900, L501.6710 #### [facility] [address] [place], [address] Potassium [Moles/Vol] 3.7 mmol/L Normal 3.3-5.1 [facility] Comment on above: Performed By: #### M 200.1000, L509.7001, L101.9900, L501.6710 #### [facility] [address] [place], [address] Sodium [Moles/Vol] 139 mmol/L Normal 133-145 [facility] Comment on above: Performed By: #### M 200.1000, L509.7001, L101.9900, L501.6710 #### [facility] [address] [place], [address] Urea nitrogen [Mass/Vol] 17 mg/dL Normal 4-19 [facility] Comment on above: Performed By: #### M 200.1000, L509.7001, L101.9900, L501.6710 #### [facility] [address] [place], [address] Basophil percentageOrdered B y: Inderjit Gillespie on 09-01-2024 Basophils/100 WBC (Bld) 0.4 % 0-1 [facility] Bilirubin Test strip Ql (U)O rdered By: Inderjit Gillespie on 09-01-2024 Bilirubin Ql (U) Negative Negative [facility] Blood cultureOrdered By: Magnolia Black on 09-01-2024 Bacteria identified Cx Nom (Bld) No growth in 5 days. [facility] Brain/Head without Contrasto n 09-01-2024 Brain/Head without Contrast [facility] Imaging Services [address] [place] [address] Brain/Head without Contrast MR#: [id number] Acct: [id number] Name: ROBY FLORES Rep #: [id number] : 1935 M 89 From: Jose harris MD PCP: Dr. Stas Mora MD Status: REG ER Study: Brain/Head without Contrast Date of Exam: 08/21 05/17 Exam# [id number] Ordering Dr: Inderjit Gillespie MD PROCEDURE: BRAIN/HEAD [...] of the left maxillary sinus. Reading Location: [place] [address] CC: Dr. Inderjit Gillespie MD; Dr. 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 Normal [facility] CBC W/Diff, Automatedon 08-21 Absolute Lymph 0.62 X10 3/uL Low 0.83-4.51 [facility] Comment on above: Performed By: #### M 200.1000, L509.7001, L101.9900, L501.6710 #### [facility] [address] [place], [address] Absolute Neut 11.3 X10 3/uL High 2.0-7.7 [facility] Comment on above: Performed By: #### M 200.1000, L509.7001, L101.9900, L501.6710 #### [facility] [address] [place], [address] Basophils/100 WBC (Bld) 0.4 % Normal 0-1 [facility] Comment on above: Performed By: #### M 200.1000, L509.7001, L101.9900, L501.6710 #### [facility] [address] [place], [address] Eosinophils/100 WBC (Bld) 1.2 % Normal 0-5 [facility] Comment on above: Performed By: #### M 200.1000, L509.7001, L101.9900, L501.6710 #### [facility] [address] [place], [address] Erythrocyte distribution width (RBC) [Ratio] 17.2 % High 11.6-14.6 [facility] Comment on above: Performed By: #### M 200.1000, L509.7001, L101.9900, L501.6710 #### [facility] [address] [place], [address] Hematocrit (Bld) [Volume fraction] 36.8 % Low 40-54 [facility] Comment on above: Performed By: #### M 200.1000, L509.7001, L101.9900, L501.6710 #### [facility] [address] [place], [address] Hemoglobin (Bld) [Mass/Vol] 11.6 g/dL Low 13.0-16.5 [facility] Comment on above: Performed By: #### M 200.1000, L509.7001, L101.9900, L501.6710 #### [facility] [address] [place], [address] IG% 0.400 Normal 0.0-0.9 [facility] Comment on above: Result Comment: IG% - Immature Granulocytes (promyelocytes, myelocytes and metamyelocytes) > 1% indicates that a LEFT SHIFT is Present. Performed By: #### M 200.1000, L509.7001, L101.9900, L501.6710 #### [facility] [address] [place], [address] Lymphocytes/100 WBC (Bld) 4.8 % Low 19-41 [facility] Comment on above: Performed By: #### M 200.1000, L509.7001, L101.9900, L501.6710 #### [facility] [address] [place], [address] MCH (RBC) [Entitic mass] 24.6 pg Low 27.0-32.0 [facility] Comment on above: Performed By: #### M 200.1000, L509.7001, L101.9900, L501.6710 #### [facility] [facility] [address] [place], [address] MCHC (RBC) [Mass/Vol] 31.5 g/dL Low 32-36 [facility] Comment on above: Performed By: #### M 200.1000, L509.7001, L101.9900, L501.6710 #### [facility] [address] [place], [address] MCV (RBC) [Entitic vol] 78.0 fL Low 80-94 [facility] Comment on above: Performed By: #### M 200.1000, L509.7001, L101.9900, L501.6710 #### [facility] [address] [place], [address] Monocytes/100 WBC (Bld) 5.7 % Normal 0-10 [facility] Comment on above: Performed By: #### M 200.1000, L509.7001, L101.9900, L501.6710 #### [facility] [address] [place], [address] Neutrophils/100 WBC (Bld) 87.5 % High 47-70 [facility] Comment on above: Performed By: #### M 200.1000, L509.7001, L101.9900, L501.6710 #### [facility] [address] [place], [address] Nucleated RBC (Bld) [#/Vol] 0 10*3/uL Normal 0-5 [facility] Comment on above: Performed By: #### M 200.1000, L509.7001, L101.9900, L501.6710 #### [facility] [address] [place], [address] Platelet mean volume (Bld) [Entitic vol] 9.4 fL Normal 6.2-12.0 [facility] Comment on above: Performed By: #### M 200.1000, L509.7001, L101.9900, L501.6710 #### [facility] [address] [place], [address] Platelets (Bld) [#/Vol] 258 10*3/uL Normal 150-450 [facility] Comment on above: Performed By: #### M 200.1000, L509.7001, L101.9900, L501.6710 #### [facility] [address] [place], [address] RBC (Bld) [#/Vol] 4.72 10*6/uL Normal 4.6-6.2 [facility] Comment on above: Performed By: #### M 200.1000, L509.7001, L101.9900, L501.6710 #### [facility] [address] [place], [address] RDW SD 48.2 fl High 35.1-43.9 [facility] Comment on above: Performed By: #### M 200.1000, L509.7001, L101.9900, L501.6710 #### [facility] [address] [place], [address] WBC (Bld) [#/Vol] 12.9 10*3/uL High 4.4-11.0 [facility] Comment on above: Performed By: #### M 200.1000, L509.7001, L101.9900, L501.6710 #### [facility] [address] [place], [address] CNPMarizol 09-01-2024 CNPN Telephone (PHMEWO) ROBY FLORES ([id number]) 1935 M Date Time Provider Department 09/01/24 RUSSELL AGUAYO During your visit today, we recorded the following information about you: Russell Aguayo [facility] 09/01/2024 10:01 AM Signed PCP reached [...] affordable alvarado using Good Rx coupons. At [facility] (his current pharmacy), he can get a 1 mo supply for ~$30. If he switches the prescription to [facility], he can get a 1 mo supply for ~$20. See coupons below. Rivastigmine patches are also available via GoodRx. It appears the cheapest option is through [facility], in which he can get 30 patches for $52. Coupon also below. Sending to PCP to review and provide patient with coupon card information. Russell Aguayo PharmD, [facility] Primary Care Clinical Pharmacist Memantine coupon at [facility] Memantine coupon at [facility] Rivastigmine patches coupon at [facility] Luciana Cisneros MD 09/01/2024 1:27 PM Signed Thanks Russell, Staff please let patient know what the pharmacist as opined on. 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 Encounter Status:Closed by RUSSELL AGUAYO on 09/01/24 Normal [facility] COVID 19 AG RAPID (EMILY BURKETT T)on 09-01-2024 SARS-CoV-2 (COVID-19) RNA LOLI+probe Ql [...] BinaxNow COVID19 Ag Card Normal [facility] Comment on above: Performed By: #### M 200.1000, L509.7001, L101.9900, L501.6710 #### [facility] [address] [place], [place], [id number] (099) COVID-19 virus antigen assay Ordered By: Marta Black on 09-01-2024 SARS-CoV-2 (COVID-19) Ag IA.rapid Ql (Resp) [facility] CRPon 09-01-2024 C-REACTIVE PROT 26.80 mg/L High 0.0-3.0 [facility] Comment on above: Performed By: #### M 200.1000, L509.7001, L101.9900, L501.6710 #### [facility] [address] [place], [place], [id number] Carbon dioxide, total [Moles /volume] in Central venous bloodOrdered By: Inderjit Gillespie on 09-01-2024 CO2 [Moles/Vol] 24.3 mmol/L 21.0-32.0 [facility] Chest 1 View (Portable)on Chest 1 View (Portable) [facility] Imaging Services [address] [place], [place] [id number] Chest 1 View (Portable) MR#: [id number] Acct: [id number] Name: ROBY FLORES Rep #: [id number] : 1935 M 89 From: Jose harris MD PCP: Dr. Stas Mora MD Status: REG ER Study: Chest 1 View (Portable) Date of Exam: 09/01/24 Exam# [id number] Ordering Dr: Inderjit Gillespie MD PROCEDURE: CHEST [...] No acute abnormality is seen. Reading Location: [place] [address] CC: Dr. Inderjit Gillespie MD; Dr. 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 Normal [facility] Chloride assayOrdered By: Aries Gillespie on 09-01-2024 Chloride [Moles/Vol] 105 mmol/L 98-108 [facility] Emergency Department Summary on 09-01-2024 Emergency Department Summary [facility] Medical Records Department [address] [place] [address] Emergency Department Summary 09/01/24 MR#: [id number] Acct: [id number] Name: ROBY FLORES Rep #: [id number] : 1935 89 From: Inderjit Gillespie MD [...] Prior similar symptoms: No Recent Illness/Hospitalization: [facility] Medical History Chronic anticoagulation TIA (transient ischemic [...] shoulders elbows and wrist. 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 Neurologically he is awake alert. Answering [...] (more content not included)... Normal [facility] Eosinophil percentageOrdered By: Inderjit Gillespie on 09-01-2024 Eosinophils/100 WBC (Bld) 1.2 % 0-5 [facility] Erythrocyte Sed Rateon 09-01 SED RATE 2 mm/hr Normal 0-20 [facility] Comment on above: Performed By: #### M 200.1000, L509.7001, L101.9900, L501.6710 #### [facility] [address] [place], [place], [id number] Erythrocyte distribution wid th ratioOrdered By: Inderjit Gillespie on 09-01-2024 Erythrocyte distribution width (RBC) [Ratio] 17.2 % High 11.6-14.6 [facility] Erythrocyte distribution wid th standard deviationOrdered By: Inderjit Gillespie on 09-01-2024 Erythrocyte distribution width (RBC) [Ratio] 48.2 fl High 35.1-43.9 [facility] Erythrocyte sedimentation ra teOrdered By: Marta Black on 09-01-2024 ESR (Bld) [Velocity] 2 mm/h 0-20 [facility] Glomerular filtration rate ( GFR) estimation/1.73 sq m using serum, plasma, or whole bOrdered By: Inderjit Gillespie on 09-01-2024 GFR/1.73 sq M.predicted among non-blacks MDRD (S/P/Bld) [Vol rate/Area] 86 mL/min/{1.73_m2} >60 [facility] Comment on above: mL/min/1.73m2 CKD-EP I Creatinine Equation (2020) H AND P Exam - Hospitaliston 09-01-2024 H&P Exam - Hospitalist [facility] Medical Records Department [address] [place] [address] H P Exam - Hospitalist 09/01/24 1018 MR#: [id number] Acct: [id number] Name: ROBY FLORES Rep #: [id number] : 1935 89 From: Kathy Wells MD PCP: Dr. Stas Mora MD Status:ADM GERMAN Location: [address] HPI - General General Date of Admission: [...] in the ED were BP of 180/89, MS of 87, RR of 18 and temp [...] weakness due to mechanical fall. [facility] Medical History Chronic anticoagulation TIA (transient ischemic [...] (more content not included)... Normal [facility] Hematocrit Auto (Bld) [Volum e fraction]Ordered By: Inderjit Gillespie on 09-01-2024 Hematocrit (Bld) [Volume fraction] 36.8 % Low 40-54 [facility] Hemoglobin measurementOrdere d By: Inderjit Gillespie on 09-01-2024 Hemoglobin (Bld) [Mass/Vol] 11.6 g/dL Low 13.0-16.5 [facility] Hips B/L min 2 views w/ Pelv adolfo 09-01-2024 Hips B/L min 2 views w/ Pelvis [facility] Imaging Services [address] [place] [address] Hips B/L min 2 views w/ Pelvis MR#: [id number] Acct: [id number] Name: ROBY FLORES Rep #: [id number] : 1935 M 89 From: Jose harris MD PCP: Dr. Stas Mora MD Status: REG ER Study: Hips B/L min 2 views w/ Pelvis Date of Exam: 0 09/01/24 Exam# [id number] Ordering Dr: Inderjit Gillespie MD PROCEDURE: HIPS [...] No fracture or dislocation present. Reading Location: [place] [address] CC: Dr. Inderjit Gillespie MD; Dr. 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 International normalized rat io (INR) calculationOrdered By: Inderjit Gilelspie on 09-01-2024 INR Coag (Bld) [Relative time] 1.8 {INR} [facility] Ketones Test strip Ql (U)Ord ered By: Inderjit Gillespie on 09-01-2024 Ketones Ql (U) Negative Negative [facility] L509.7001on 09-01-2024 Procalcitonin 0.07 ng/mL Normal <=0.10 [facility] Comment on above: Result Comment: Inte rpretation: [...] 200.1000, L509.7001, L101.9900, L501.6710 #### [facility] [address] [place], [address] MCV (mean corpuscular volume ) determinationOrdered By: Inderjit Gillespie on 09-01-2024 MCV (RBC) [Entitic vol] 78.0 fL Low 80-94 [facility] Mean corpuscular hemoglobin (MCH) determinationOrdered By: Inderjit Gillespie on 09-01-2024 MCH (RBC) [Entitic mass] 24.6 pg Low 27.0-32.0 [facility] Mean corpuscular hemoglobin concentration (MCHC) determinationOrdered By: Inderjit Gillespie on 09-01-2024 MCHC (RBC) [Mass/Vol] 31.5 g/dL Low 32-36 [facility] Mean platelet volume determi nationOrdered By: Inderjit Gillespie on 09-01-2024 Platelet mean volume (Bld) [Entitic vol] 9.4 fL 6.2-12.0 [facility] Microscopic analysis of urin e for red blood cells (RBC)Ordered By: Inderjit Gillespie on 09-01-2024 Microscopic analysis of urine for red blood cells (RBC) 0 SEEN /hpf 0-5 [facility] Monocyte percentageOrdered B y: Inderjit Gillespie on 09-01-2024 Monocytes/100 WBC (Bld) 5.7 % 0-10 [facility] Mucus LM Ql (Urine sed)Order ed By: Inderjit Gillespie on 09-01-2024 Mucus Ql (Urine sed) 0 SEEN /hpf [facility] Neutrophil percentageOrdered By: Inderjit Gillespie on 09-01-2024 Neutrophils/100 WBC (Bld) 87.5 % High 47-70 [facility] Nitrite Test strip Ql (U)Ord ered By: Inderjit Gillespie on 09-01-2024 Nitrite Ql (U) Negative Negative [facility] Nucleated red blood cell per centageOrdered By: Inderjit Gillespie on 09-01-2024 Nucleated RBC/100 WBC (Bld) [Ratio] 0 % 0-5 [facility] Platelet countOrdered By: Aries Gillespie on 09-01-2024 Platelets (Bld) [#/Vol] 258 10*3/uL 150-450 [facility] Potassium measurement (mass/ volume)Ordered By: Inderjit Gillespie on 09-01-2024 Potassium (Unsp spec) [Mass/Vol] 3.7 mmol/L 3.3-5.1 [facility] Procalcitonin [Mass/volume] in Serum or Plasma by ImmunoassayOrdered By: Marta Black on 09-01-2024 Procalcitonin IA [Mass/Vol] 0.07 ng/mL <0.11 [facility] Comment on above: Interpretation:<0.10 -0.25 ng/mL: Antibiotic [...] (U) 15 mg/dl High Negative [facility] Prothrombin Time w/INRon INR Coag (PPP) [Relative time] 1.8 {INR} Normal [facility] Comment on above: Performed By: #### M 200.1000, L509.7001, L101.9900, L501.6710 #### [facility] [address] [place], [address] PT Coag (PPP) [Time] 21.4 s High 11.7-14.9 [facility] Comment on above: Performed By: #### M 200.1000, L509.7001, L101.9900, L501.6710 #### [facility] [place], [address] Prothrombin timeOrdered By: Inderjit Gillespie on 09-01-2024 PT Coag (PPP) [Time] 21.4 s High 11.7-14.9 [facility] RBC Auto (Bld) [#/Vol]Ordere d By: Inderjit Gillespie on 09-01-2024 RBC (Bld) [#/Vol] 4.72 10*6/uL 4.6-6.2 [facility] Respiratory pathogens detect ion panel by molecular detection methodOrdered By: Marta Black on 09-01-2024 Respiratory pathogens DNA and RNA panel LOLI+probe (Resp) [facility] Serum creatinine measurement (mass/volume)Ordered By: Inderjit Gillespie on 09-01-2024 Creatinine [Mass/Vol] 0.77 mg/dL 0.70-1.20 [facility] Serum glucose measurement (m ass/volume)Ordered By: Inderjit Gillespie on 09-01-2024 Glucose [Mass/Vol] 112 mg/dL High 70-99 [facility] Serum or plasma C reactive p rotein measurement (mass/volume)Ordered By: Marta Black on 09-01-2024 CRP [Mass/Vol] 26.80 mg/L High 0.0-3.0 [facility] Serum or plasma calcium alvaro urement (mass/volume)Ordered By: Inderjit Gillespie on 09-01-2024 Calcium [Mass/Vol] 8.8 mg/dL 7.6-11.0 [facility] Serum or plasma urea nitroge n measurement (mass/volume)Ordered By: Inderjit Gillespie on 09-01-2024 Urea nitrogen [Mass/Vol] 17 mg/dL 4-19 [facility] Sodium levelOrdered By: Inderjit Gillespie on 09-01-2024 Sodium [Moles/Vol] 139 mmol/L 133-145 [facility] Squamous epithelial cells de tection in urine sediment by light microscopyOrdered By: Inderjit Gillespie on 09-01-2024 Epithelial cells.squamous LM Ql (Urine sed) 0 SEEN /hpf 0-5 [facility] Urinalysis, Completeon 09-01 BACTERIA 0 SEEN Normal None Seen [facility] Comment on above: Order Comment: CLEAN CATCH Performed By: #### L 400.0001 #### [facility] [address] [place], [address] EPI,SQUAMOUS 0 SEEN Normal 0-5 [facility] Comment on above: Order Comment: CLEAN CATCH Performed By: #### L 400.0001 #### [facility] [address] [place], [address] Mucus Ql (Urine sed) 0 SEEN Normal [facility] Comment on above: Order Comment: CLEAN CATCH Performed By: #### L 400.0001 #### [facility] [address] [place], [address] RBC 0 SEEN Normal 0-5 [facility] Comment on above: Order Comment: CLEAN CATCH Performed By: #### L 400.0001 #### [facility] [address] [place], [address] WBC 0 SEEN Normal [address] [place] [address] Comment on above: Order Comment: CLEAN CATCH Performed By: #### L 400.0001 #### [facility] [address] [place], [address] Urine clarityOrdered By: Mario Gillespie on 09-01-2024 Clarity (U) Clear Clear [facility] Urine color determinationOrd ered By: Inderjit Gillespie on 09-01-2024 Color (U) Yellow Yellow [facility] Urine glucose detectionOrder ed By: Inderjit Gillespie on 09-01-2024 Glucose Ql (U) Normal mg/dl Normal [facility] Urine leukocyte esterase det ection by dipstickOrdered By: Inderjit Gillespie on 09-01-2024 Leukocyte esterase Test strip Ql (U) Negative Negative [facility] Urine pHOrdered By: Inderjit pack on 09-01-2024 pH (U) 8.0 [pH] 5.0 - 8.0 [facility] Urine sediment bacteria coun t by microscopy (number/high power field)Ordered By: Inderjit Gillespie on 09-01-2024 Bacteria LM.HPF (Urine sed) [#/Area] 0 /[HPF] None Seen [facility] Urine specific gravity measu rementOrdered By: Inderjit Gillespie on 09-01-2024 Specific gravity (U) [Rel density] 1.010 1.002-1.03 0 [facility] Urine urobilinogen measureme ntOrdered By: Inderjit Gillespie on 09-01-2024 Urobilinogen Ql (U) 4 mg/dl High Normal [facility] White blood cell (WBC) count Ordered By: Inderjit Gillespie on 09-01-2024 WBC (Bld) [#/Vol] 12.9 10*3/uL High 4.4-11.0 [facility] White blood cell countOrdere d By: Inderjit Gillespie on 09-01-2024 White blood cell count 0 SEEN /hpf 0-5 [facility] CNOVon 08-31-2024 CNOV Office Visit ([place] ) ROBY FLORES ([id number]) 1935 M Date Time Provider Department 08/31/24 [...] and believing his brother, who lives in [place], was present. 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 Additionally, [...] tablet wa (more content not included)... Normal [facility] 08-31-2024 CNPN Telephone (PHAMTE) ROBY FLORES ([id number]) 1935 M Date Time Provider Department 08/31/24 CORETTA JALLOH During your visit today, we recorded the following information about you: Coretta Jalloh RPh 08/31/2024 2:13 PM Signed [facility] Anticoagulation Episode Summary Anticoagulation Care Providers Provider Role Specialty Phone number Stas Mora MD Referring Family Medicine [phone] Roby Radha Flores is a 89 year old year [...] ALLERGIES No Known Allergies Indication for Warfarin: director 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 current use of anticoagulant [...] missed any doses of warfarin. Coretta Jalloh [facility] Clinical Pharmacist, Pharmacy Anticoagulation Clinic Pharmacy Anticoagulation Clinic Pager: [phone]. Coretta Jalloh [facility] 09/28/2024 11:30 AM Signed Per TE on 09/21, pt is in [facility] living for rehab. He has been for for nearly 3 weeks now. Will check back next week before we call Maria Guadalupe. Will watch for notes of discharge. Coretta Jalloh [facility] Coretta Jalloh [facility] 10/05/2024 2:05 PM Signed Spoke to Maria Guadalupe. She said he is at an [facility] Facility and they are managing his AC but she isn't aware of results. She isn't sure of discharge timing. She said maybe check back in a few weeks. Will check back in October for any updates. Coretta Jalloh [facility] Adrian (Manager Of Sustainability)Elana 10/27/2024 4:17 PM Signed Updating PCC LTC / Rehab list. Called and stp patient's significant other, Maria Guadalupe. She stated patient is still in SNF at this time. She was agreeable to f/u in a few weeks. Tracker updated for f/u in 2-3 weeks. Elana Campbell CPhT (Energy Conservation Engineer) Pharmacy Anticoagulation Clinic Satish (Manager Of Sustainability)Parmjit 11/25/2024 3:45 PM Signed Left message requesting an update. Patient has appt with PCP 12/05. Will update tracker to that day to see if there are any updates. Adrian HuangManager Of Sustainability)Elana 12/08/2024 4:41 PM Signed Updating PCC LTC / Rehab list. Attempted to call patient's caregiver, Maria Guadalupe, to get update on LTC/SNF status. Message left requesting a return call to [phone], option 2. Elana Campbell CPhT (Energy Conservation Engineer) Pharmacy [facility]tico[facility] Adrian (Manager Of Sustainability)Elana 12/22/2024 3:52 PM Signed Updating PCC LTC / Rehab list. Attempted to call patient's caregiver, Maria Guadalupe, to get update on LTC/SNF status. Message left requesting a return call to [phone], option 2. Elana Campbell CPhT (Energy Conservation Engineer) [facility] Adrian (Manager Of Sustainability) Elana 12/29/2024 5:26 PM Signed Updating [facility] LTC / Rehab list. Attempted to call patient's caregiver, Maria Guadalupe, to get update on LTC/SNF status. Message left requesting a return call to [phone], option 2. Elana Campbell CPhT (Energy Conservation Engineer) Pharmacy [facility]tico[facility] Clinic Adrian (Manager Of Sustainability), (more content not included)... Normal [facility] PT panel Coag (PPP)on 2024 INR Coag (PPP) [Relative time] 1.9 {INR} High 0.9-1.3 [facility] Comment on above: Order Comment: Speci men Type: BLOOD SPECIMENOrdering Facility: [facility] Address: [address] [place] [address] Result Comment: Mary min K Antagonist (VKA) Therapeutic Range: INR 2 to 3 (Target INR of 2.5) Note: For patients treated with VKA drugs, such as warfarin, the [place] [employer] 2012 Guideline recommends [...] 2012, 141:7S-47S Avel RA, et al. [facility] 2017, 70: 252-289 Performed By: #### 3 4528-0 ####[facility] [id number] [place] [address] [place] PT Coag (PPP) [Time] 19.2 s High <13.1 [facility] Comment on above: Order Comment: Speci men Type: BLOOD SPECIMENOrdering Facility: [facility] Address: [address] [place] [address] Performed By: #### 3 4528-0 ####[facility] FAULKNER [id number] [address] OF [facility] CNPMarizol 08-03-2024 CNPN Telephone (PHAMTE) ROBY FLORES ([id number]) 1935 M Date Time Provider Department 08/03/24 CORETTA JALLOH During your visit today, we recorded the following information about you: Coretta Jalloh RPh 08/03/2024 10:52 AM Signed [facility] Anticoagulation Clinic Anticoagulation Episode Summary Anticoagulation Care Providers Provider Role Specialty Phone number Stas Mora MD Referring Family Medicine [phone] Roby Martinezenter is a 88 year old [...] ALLERGIES No Known Allergies Indication for Warfarin: director 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 current use of anticoagulant [...] missed any doses of warfarin. Coretta Jalloh [facility] Clinical Pharmacist, Pharmacy Anticoagulation Clinic Pharmacy Anticoagulation Clinic Pager: [phone]. Adrian ([email or web address])Elana 08/03/2024 11:01 AM Signed PATIENT CALL Patient [...] 08/31/2024 Caregiver verbalized understanding. Will route to [facility] as FYI. Elana Campbell (Manager Of Sustainability) Coretta Jalloh riya 08/03/2024 11:20 AM Signed I have reviewed the below recommendations and agree with plan. 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 senior care current use of anticoagulant [Z79.01]09/22/2016 Paroxysmal atrial fibrillation (HCC) [I48.0] 09/22/2016 Hyperlipidemia [E78.5] 08/26/2022 Encounter Status:Closed by CORETTA JALLOH on 08/03/24 Normal [facility] PT panel Coag (PPP)on 2024 INR Coag (PPP) [Relative time] 2.5 {INR} High 0.9-1.3 [facility] Comment on above: Order Comment: Speci men Type: BLOOD SPECIMENOrdering Facility: [facility] Address: [address] [place] [address] Result Comment: Mary min K Antagonist (VKA) Therapeutic Range: INR 2 to 3 (Target INR of 2.5) Note: For patients treated with VKA drugs, such as warfarin, the [place] [employer] 2012 Guideline recommends [...] 2012, 141:7S-47S Avel RA, et al. [facility] 2017, 70: 252-289 Performed By: #### 3 4528-0 ####[facility] [id number] [place] [address] [place] PT Coag (PPP) [Time] 24.3 s High <13.1 [facility] Comment on above: Order Comment: Speci men Type: BLOOD SPECIMENOrdering Facility: [facility] Address: [address] [place] [address] Performed By: #### 3 4528-0 ####[facility] [id number] [place] [address] [place] CNOVon 07-28-2024 CNOV Office Visit (FAMPWS ) ROBY FLORES ([id number]) 1935 M Date Time Provider Department 07/28/24 11:20 AM STAS MOAR FAMPWS During your visit today, we recorded [...] Coronary atherosclerosis of unspecified type of vessel, tazlina or graft Coronary artery disease Other and [...] Past Histories independently gathered by the clinical support director and the remaining scribed note accurately describes [...] - Fully Assessed Reason for Visit: Lump [70779] Cmt: Elbow Primary Visit Diagnosis:Bursitis of right elbow, unspecified bursa [M70.31] Prescriptions as of 07/28/2024 - memantine (NAMENDA) 10 mg tablet Take 1 tablet by mouth two times a day. - atorvastatin (LIPITOR) 40 mg tablet Take 1 tablet by mouth daily at bedtime. - warfarin (COUMADIN) 2.5 mg tablet Take as directed (more content not included)... 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 senior care current use of anticoagulant [Z79.01]09/22/2016 Paroxysmal atrial fibrillation (HCC) [I48.0] 09/22/2016 Hyperlipidemia [E78.5] 08/26/2022 Encounter Status:Closed by WENDY FAULKNER on 07/18/24 [facility] 07-06-2024 CNPN Telephone (PHAMTE) ROBY FLORES ([id number]) 1935 M Date Time Provider Department 07/06/24 CORETTA AJLLOH During your visit today, we recorded the following information about you: Coretta Jalloh [facility] 07/06/2024 10:16 AM Signed [facility] Ambulatory Pharmacy Anticoagulation Clinic Anticoagulation Episode Summary Anticoagulation Care Providers Provider Role Specialty Phone number Stas Mora MD Referring Family Medicine [phone] Roby Martinezenter is a 88 year old [...] ALLERGIES No Known Allergies Indication for Warfarin: director 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 current use of anticoagulant [...] missed any doses of warfarin. Coretta Jalloh [facility] Clinical Pharmacist, Pharmacy Anticoagulation Clinic Pharmacy Anticoagulation Clinic Pager: [phone]. 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 senior care current use of anticoagulant [Z79.01]09/22/2016 Paroxysmal atrial fibrillation (HCC) [I48.0] 09/22/2016 Hyperlipidemia [E78.5] 08/26/2022 Encounter Status:Closed by CORETTA JALLOH on 07/06/24 Normal [facility] PT panel Coag (PPP)on 2024 INR Coag (PPP) [Relative time] 2.1 {INR} High 0.9-1.3 [facility] Comment on above: Order Comment: Speci men Type: BLOOD SPECIMEN [facility] Address: [address] [place] [address] Result Comment: Mary min K Antagonist (VKA) Therapeutic Range: INR 2 to 3 (Target INR of 2.5) Note: For patients treated with VKA drugs, such as warfarin, the [place] [employer] 2012 Guideline recommends [...] 2012, 141:7S-47S Avel RA, et al. [facility] 2017, 70: 252-289 Performed By: #### 2 4331-1 #### [facility] CLIA [id number] [address] CLIA [id number] [address] [place] [address] [place] #### 70766-1 #### [facility] CLIA [id number] [address] [place] [address] [place] PT Coag (PPP) [Time] 21.0 s High <13.1 [facility] Comment on above: Order Comment: Speci men Type: BLOOD SPECIMEN [facility] Address: [address] [place] [address] Performed By: #### 2 4331-1 #### [facility] CLIA [id number] [address] [place] [address] CLIA [id number] [address] [place] [address] [place] #### 07925-0 #### [facility] CLIA [id number] [address] [place] [address] OF [place] Gene 06-29-2024 MICHELINE Telephone (MalharSDFoodzie) ROBY FLORES ([id number]) 1935 M Date Time Provider Department 06/29/24 CORETTA JALLOH During your visit today, we recorded the following information about you: Coretta Jalloh [facility] 06/29/2024 9:54 AM Signed [facility] Antico[facility] Anticoagulation Episode Summary Anticoagulation Care Providers Provider Role Specialty Phone number Stas Mora MD Referring Family Medicine [phone] Roby Flores is a 88 year old [...] ALLERGIES No Known Allergies Indication for Warfarin: director 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 current use of anticoagulant Paroxysmal atrial fibrillation (hcc) Anticoagulation Episode Summary Current INR goal: 2.0-3.0 Assessment: INR result of 2.5 is therapeutic Plan: Current Warfarin Dosing As of 06/29/2024 Full warfarin instructions: 1.5 mg every Thu, Sat; 2.5 mg all other days Sent Expert360 message Advised patient to continue current weekly dose as noted above Next home INR check scheduled on 07/06/2024 Patient advised to call the PAC with any medication changes, bleeding/bruising concerns, recent changes in vitamin k consumption, if any procedures are coming up, if they have been ill or in the hospital, and if they have missed any doses of warfarin. Coretta Jalloh [facility] Clinical Pharmacist, Pharmacy Anticoagulation Clinic Pharmacy Anticoagulation Clinic Pager: [phone]. 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 director 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 current use of anticoagulant [Z79.01]09/22/2016 Paroxysmal atrial fibrillation (HCC) [I48.0] 09/22/2016 Hyperlipidemia [E78.5] 08/26/2022 Encounter Status:Closed by CORETTA JALLOH on 06/29/24 Normal [facility] PT panel Coag (PPP)on 2024 INR Coag (PPP) [Relative time] 2.5 {INR} High 0.9-1.3 [facility] Comment on above: Order Comment: Stone parmar Type: BLOOD SPECIMEN [facility] Address: [address] [place] [address] Result Comment: Mary min K Antagonist (VKA) Therapeutic Range: INR 2 to 3 (Target INR of 2.5) Note: For patients treated with VKA drugs, such as warfarin, the [place] [employer] 2012 Guideline recommends [...] 2012, 141:7S-47S Avel RA, et al. [facility] 2017, 70: 252-289 Performed By: #### 2 4331-1 #### [facility] CLIA [id number] 1 [place] [address] [place] [facility] CLIA [id number] [address] [place] [address] [place] #### 49984-2 #### [facility] CLIA [id number] [address] [place] [address] [place] PT Coag (PPP) [Time] 24.4 s High <13.1 [facility] Comment on above: Order Comment: Stone parmar Type: BLOOD SPECIMEN [facility] Address: [address], [place] [address] Performed By: #### 2 4331-1 #### [facility] CLIA [id number] [address] CLIA [id number] [address] [place] [address] #### 82760-3 #### [facility] CLIA [id number] [address] [place] [address] CNOVon 06-01-2024 CNOV Office Visit (RAMBOR ) ROBY FLORES ([id number]) 1935 M Date Time Provider Department 06/01/24 3:00 PM LUCIANA CISNEROS During your visit today, we recorded the following information about you: Pulse Blood pressure Weight Height 46/minute 132/60 73.8 kg 1.819 m Luciana Cisneros MD 07/14/2024 4:10 PM Addendum [facility] Initial Consult Roby Flores [...] not know 911 Social History: Primary language: Anguillan Marital Status: Single Living situation: Home w/ SO Socially engaged? (participates in activities such as clubs, jew, community center, sports, games, visiting friends/relatives, etc?): They go out to eat sometimes, not as often, most of the time they order stuff and pick it up at home. Caregiver [place] and Stress Are your feeling overwhelmed? 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 Normal [facility] CNOVon 05-26-2024 CNOV Office Visit (FAMPWS ) ROBY FLORES ([id number]) 1935 M Date Time Provider Department 05/26/24 [...] Coronary atherosclerosis of unspecified type of vessel, tazlina or graft Coronary artery disease Other and [...] due on (more content not included)... 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 director 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 current use of anticoagulant [Z79.01]09/22/2016 Paroxysmal atrial fibrillation (HCC) [I48.0] 09/22/2016 Hyperlipidemia [E78.5] 08/26/2022 Encounter Status:Closed by EDILIA MOSLEY on 05/26/24 Normal [facility] CBC W Auto Differential pane l (Bld)on 05-25-2024 Basophils (Bld) [#/Vol] 0.05 10*3/uL Normal <0.11 [facility] Comment on above: Order Comment: Speci men Type: BLOOD SPECIMENOrdering Facility: [facility] Address: [address] [place] [address] Performed By: #### 5 7021-8 ####[facility] [id number] [place] [address] [place] Basophils/100 WBC (Bld) 0.6 % Normal [facility] Comment on above: Order Comment: Speci men Type: BLOOD SPECIMENOrdering Facility: [facility] Address: [address] [place] [address] Performed By: #### 5 7021-8 ####[facility] [id number] [place] [address] [place] Differential cell count method Nom (Bld) Auto Normal [facility] Comment on above: Order Comment: Speci men Type: BLOOD SPECIMENOrdering Facility: [facility] Address: [address] [place] [address] Performed By: #### 5 7021-8 ####[facility] MILLWNCLIA [id number] [place] [address] [place] Eosinophils (Bld) [#/Vol] 0.08 10*3/uL Normal <0.46 [facility] Comment on above: Order Comment: Speci men Type: BLOOD SPECIMENOrdering Facility: [facility] Address: [address] [place] [address] Performed By: #### 5 7021-8 ####[facility] [id number] [place] [address] [place] Eosinophils/100 WBC (Bld) 1.0 % Normal [facility] Comment on above: Order Comment: Speci men Type: BLOOD SPECIMENOrdering Facility: [facility] Address: [address] [place] [address] Performed By: #### 5 7021-8 ####[facility] [id number] [place] [address] [place] Erythrocyte distribution width (RBC) [Ratio] 16.7 % High 11.5-15.0 [facility] Comment on above: Order Comment: Speci men Type: BLOOD SPECIMENOrdering Facility: [facility] Address: [address] [place] [address] Performed By: #### 5 7021-8 ####[facility]CL[facility] [id number] [place] [address] [place] Hematocrit (Bld) [Volume fraction] 38.7 % Low 39.0-51.0 [facility] Comment on above: Order Comment: Speci men Type: BLOOD SPECIMENOrdering Facility: [facility] Address: [address] [place] [address] Performed By: #### 5 7021-8 ####[facility] [id number] [place] [address] [place] Hemoglobin (Bld) [Mass/Vol] 11.8 g/dL Low 13.0-17.0 [facility] Comment on above: Order Comment: Speci men Type: BLOOD SPECIMENOrdering Facility: [facility] Address: [address] [place] [address] Performed By: #### 5 7021-8 ####[facility]ENTERWNCLIA [id number] [place] [address] [place] Immature granulocytes (Bld) [#/Vol] 10*3/uL Normal <0.10 [facility] Comment on above: Order Comment: Speci men Type: BLOOD SPECIMENOrdering Facility: [facility] Address: [address] [place] [address] Performed By: #### 5 7021-8 ####[facility] [id number] [place] [address] [place] Immature granulocytes/100 WBC (Bld) 0.2 % Normal [facility] Comment on above: Order Comment: Speci men Type: BLOOD SPECIMENOrdering Facility: [facility] Address: [address] [place] [address] Performed By: #### 5 7021-8 ####[facility] [id number] [place] [address] [place] Lymphocytes (Bld) [#/Vol] 1.50 10*3/uL Normal 1.00-4.00 [facility] Comment on above: Order Comment: Speci men Type: BLOOD SPECIMENOrdering Facility: [facility] Address: [address] [place] [address] Performed By: #### 5 7021-8 ####[facility] [id number] [place] [address] [place] Lymphocytes/100 WBC (Bld) 18.7 % Normal [facility] Comment on above: Order Comment: Speci men Type: BLOOD SPECIMENOrdering Facility: [facility] Address: [address] [place] [address] Performed By: #### 5 7021-8 ####[facility] [id number] [place] [address] [place] MCH (RBC) [Entitic mass] 23.6 pg Low 26.0-34.0 [facility] Comment on above: Order Comment: Speci men Type: BLOOD SPECIMENOrdering Facility: [facility] Address: [address] [place] [address] Performed By: #### 5 7021-8 ####[facility] [id number] [place] [address] [place] MCHC (RBC) [Mass/Vol] 30.5 g/dL Normal 30.5-36.0 [facility] Comment on above: Order Comment: Speci men Type: BLOOD SPECIMENOrdering Facility: [facility] Address: [address] [place] [address] Performed By: #### 5 7021-8 ####[facility] [id number] [place] [address] [place] MCV (RBC) [Entitic vol] 77.6 fL Low 80.0-100.0 [facility] Comment on above: Order Comment: Speci men Type: BLOOD SPECIMENOrdering Facility: [facility] Address: [address] [place] [address] Performed By: #### 5 7021-8 ####[facility] [id number] [place] [address] [place] Monocytes (Bld) [#/Vol] 0.64 10*3/uL Normal <0.87 [facility] Comment on above: Order Comment: Speci men Type: BLOOD SPECIMENOrdering Facility: [facility] Address: [address] [place] [address] Performed By: #### 5 7021-8 ####[facility] MILLWNCLIA [id number] [place] [address] [place] Monocytes/100 WBC (Bld) 8.0 % Normal [facility] Comment on above: Order Comment: Speci men Type: BLOOD SPECIMENOrdering Facility: [facility] Address: [address] [place] [address] Performed By: #### 5 7021-8 ####[facility] [id number] [place] [address] [place] Neutrophils (Bld) [#/Vol] 5.75 10*3/uL Normal 1.45-7.50 [facility] Comment on above: Order Comment: Speci men Type: BLOOD SPECIMENOrdering Facility: [facility] Address: [address] [place] [address] Performed By: #### 5 7021-8 ####[facility] [id number] [place] [address] [place] Neutrophils/100 WBC (Bld) 71.5 % Normal [facility] Comment on above: Order Comment: Speci men Type: BLOOD SPECIMENOrdering Facility: [facility] Address: [address] [place] [address] Performed By: #### 5 7021-8 ####[facility] [id number] [place] [address] [place] Nucleated RBC (Bld) [#/Vol] 10*3/uL Normal <0.01 [facility] Comment on above: Order Comment: Speci men Type: BLOOD SPECIMENOrdering Facility: [facility] Address: [address] [place] [address] Performed By: #### 5 7021-8 ####[facility] [id number] [place] [address] [place] Nucleated RBC/100 WBC (Bld) [Ratio] 0.0 /100 WBC Normal [facility] Comment on above: Order Comment: Speci men Type: BLOOD SPECIMENOrdering Facility: [facility] Address: [address] [place] [address] Performed By: #### 5 7021-8 ####[facility] [id number] [place] [address] [place] Platelet mean volume (Bld) [Entitic vol] 10.6 fL Normal 9.0-12.7 [facility] Comment on above: Order Comment: Speci men Type: BLOOD SPECIMENOrdering Facility: [facility] Address: [address] [place] [address] Performed By: #### 5 7021-8 ####[facility] [id number] [place] [address] [place] Platelets (Bld) [#/Vol] 257 10*3/uL Normal 150-400 [facility] Comment on above: Order Comment: Speci men Type: BLOOD SPECIMENOrdering Facility: [facility] Address: [address] [place] [address] Performed By: #### 5 7021-8 ####[facility] [id number] [place] [address] [place] RBC (Bld) [#/Vol] 4.99 10*6/uL Normal 4.20-6.00 [facility] Comment on above: Order Comment: Speci men Type: BLOOD SPECIMENOrdering Facility: [facility] Address: [address] [place] [address] Performed By: #### 5 7021-8 ####[facility] [id number] [place] [address] [place] WBC (Bld) [#/Vol] 8.04 10*3/uL Normal 3.70-11.00 [facility] Comment on above: Order Comment: Speci men Type: BLOOD SPECIMENOrdering Facility: [facility] Address: [address] [place] [address] Performed By: #### 5 7021-8 ####[facility] BERNICE FAULKNER [id number] [place] [id number] [place] [address] OF [facility] CNPNon 05-25-2024 CNPN Telephone (PHAMTE) ROBY FLORES ([id number]) 1935 M Date Time Provider Department 05/25/24 PAIGE [place] During your visit today, we recorded the following information about you: Paige [place] riya 05/25/2024 1:51 PM Signed [facility]acy Anticoagulation Clinic Anticoagulation Episode Summary Anticoagulation Care Providers Provider Role Specialty Phone number Stas Mora MD Referring Family Medicine [phone] Roby Martinezenter is a 88 year old [...] Sat; 2.5 mg all other days Sent Expert360 message Advised patient to continue current weekly dose as noted above Next INR check due on 06/29/2024 Paige [place] [facility] Clinical Pharmacist, Pharmacy Anticoagulation Clinic Pharmacy Anticoagulation Clinic Pager: [phone]. 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 senior care current use of anticoagulant [Z79.01]09/22/2016 Paroxysmal atrial fibrillation (HCC) [I48.0] 09/22/2016 Hyperlipidemia [E78.5] 08/26/2022 Encounter Status:Closed by PAIGE [place] on 05/25/24 Normal [facility] Comprehensive metabolic 2000 panelon 05-25-2024 Albumin [Mass/Vol] 4.2 g/dL Normal 3.9-4.9 [facility] Comment on above: Order Comment: Speci men Type: BLOOD SPECIMEN [facility] Address: [address] [place] [address] Performed By: #### 2 4331-1 #### [facility] CLIA [id number] [id number] [place] [address] #### 84837-1 #### [facility] CLIA [id number] [address] [place] [address] [place] ALP [Catalytic activity/Vol] 138 U/L High 38-113 [facility] Comment on above: Order Comment: Speci men Type: BLOOD SPECIMEN [facility] Address: [facility] [place] [address] Performed By: #### 2 4331-1 #### [facility] CLIA [id number] [address] STATES OF [facility] CLIA [id number] [address] [place] [address] [place] #### 02258-6 #### [facility] CLIA [id number] [address] [place] [address] [place] ALT [Catalytic activity/Vol] 17 U/L Normal 10-54 [facility] Comment on above: Order Comment: Speci men Type: BLOOD SPECIMEN [facility] Address: [address] [place] [address] Performed By: #### 2 4331-1 #### [facility] CLIA [id number] [address] [place], [place] [address] [place] [address] STATES OF [facility] CLIA [id number] [address] [place] [address] [place] #### 13815-9 #### [facility] CLIA [id number] [address] [place] [address] [place] Anion gap [Moles/Vol] 11 mmol/L Normal 8-15 [facility] Comment on above: Order Comment: Speci men Type: BLOOD SPECIMEN [facility] Address: [address] [place] [address] Performed By: #### 2 4331-1 #### [facility] CLIA [id number] [address] [place], [place] [id number] [place] [address] STATES OF [facility] CLIA [id number] [address] [place] [address] [place] #### 20334-2 #### [facility] CLIA [id number] [address] [place] [address] [place] AST [Catalytic activity/Vol] 22 U/L Normal 14-40 [facility] [place] Comment on above: Order Comment: Speci men Type: BLOOD SPECIMEN [facility]ing Facility: [facility] Address: [address] [place] [address] Performed By: #### 2 4331-1 #### [facility] CLIA [id number] 1 [place] [address] [place] [facility] CL[facility] [id number] [address] [place] [address] [place] #### 03399-4 #### [facility] CLIA [id number] [address] [place] [address] [place] Bilirubin [Mass/Vol] 0.8 mg/dL Normal 0.2-1.3 [facility] Comment on above: Order Comment: Speci men Type: BLOOD SPECIMEN Ordering Facility: [facility] Address: [address] [place] [address] Performed By: #### 2 4331-1 #### [facility] CLIA [id number] 1 [place] [address] [place] [facility] CLIA [id number] [address] [place] [address] [place] #### 09245-0 #### [facility] CLIA [id number] [address] [place] [address] [place] Calcium [Mass/Vol] 8.8 mg/dL Normal 8.5-10.2 [facility] Comment on above: Order Comment: Speci men Type: BLOOD SPECIMEN [facility]ing Facility: [facility] Address: [address] [place] [address] Performed By: #### 2 4331-1 #### [facility] CLIA [id number] 1 [place] [address] [place] [facility] CLIA [id number] [address] [place] [address] [place] #### 74329-5 #### [facility] CLIA [id number] [address] [place] [address] [place] Chloride [Moles/Vol] 102 mmol/L Normal 98-107 [facility] Comment on above: Order Comment: Speci men Type: BLOOD SPECIMEN Ordering Facility: [facility] Address: [address] [place] [address] Performed By: #### 2 4331-1 #### [facility] CLIA [id number] 1 [place] [address] [place] [facility] CLIA [id number] [address] [place] [address] [place] #### 03023-4 #### [facility] CLIA [id number] [address] [place] [address] [place] CO2 [Moles/Vol] 24 mmol/L Normal 22-30 [facility] [place] Comment on above: Order Comment: Speci men Type: BLOOD SPECIMEN [facility] Facility: [facility] Address: [address] [place] [address] Performed By: #### 2 4331-1 #### [facility] CLIA [id number] 1 [place] [address] [place] [facility] CLIA [id number] [address] [place] [address] [place] #### 20632-4 #### [facility] CLIA [id number] [address] [place] [address] [place] Creatinine [Mass/Vol] 0.73 mg/dL Normal 0.73-1.22 [facility] Comment on above: Order Comment: Speci men Type: BLOOD SPECIMEN Order[facility] Facility: [facility] Address: [address] [place] [id number] Performed By: #### 2 4331-1 #### [facility] CLIA [id number] 1 [place] [address] [place] [facility] [place] CLIA [id number] [address] [place] [address] [place] #### 84776-2 #### [facility] CLIA [id number] [address] [place] [address] Creatinine and Glomerular filtration rate.predicted panel (S/P/Bld) 88 mL/min/1.73m??? Normal >=60 [facility] [place] Comment on above: Order Comment: Stone parmar Type: BLOOD SPECIMEN Ordering Facility: [facility] Address: [address] [place], [place] [address] Result Comment: Ruby mated Glomerular Filtration Rate [...] actual GFR. Performed By: #### 2 4331-1 #### [facility] CLIA [id number] [address] CLIA [id number] [address] [place] [address] OF [place] #### 59882-7 #### [facility] CLIA [id number] [address] [place] [address] [place] Glucose [Mass/Vol] 98 mg/dL Normal 74-99 [facility] Comment on above: Order Comment: Stone parmar Type: BLOOD SPECIMEN Ordering Facility: [facility] Address: [address] [place] [place] [id number] Result Comment: The [place] Diabetes Association (ADA) provides guidance for cutoff [...] Standards of Medical Care in Diabetes 2016, [place] Diabetes Association. Diabetes Care. 2016.39(Suppl 1). Performed By: #### 2 4331-1 #### [facility] CLIA [id number] [address] STATES OF [facility] [place] CLIA [id number] [address] [place] [address] [place] #### 96949-5 #### [facility] CLIA [id number] [address] [place] [address] [place] Potassium [Moles/Vol] 4.1 mmol/L Normal 3.7-5.1 [facility] Comment on above: Order Comment: Speci men Type: BLOOD SPECIMEN [facility] Facility: [facility] Address: [address] [place] [address] Performed By: #### 2 4331-1 #### [facility] CLIA [id number] [address] STATES OF [facility] CLIA [id number] [address] [place] [address] [place] #### 87926-2 #### [facility] CLIA [id number] [address] [place] [address] [place] Protein [Mass/Vol] 6.8 g/dL Normal 6.3-8.0 [facility] Comment on above: Order Comment: Speci men Type: BLOOD SPECIMEN [facility] Facility: [facility] Address: [address] [place] [address] Performed By: #### 2 4331-1 #### [facility] CLIA [id number] [address] STATES [place] [facility] [place] CLIA [id number] [address] [place] [address] [place] #### 77011-8 #### [facility] CL[facility] [id number] [address] [place] [address] [place] Sodium [Moles/Vol] 137 mmol/L Normal 136-144 [facility] Comment on above: Order Comment: Speci men Type: BLOOD SPECIMEN [facility] Facility: [facility] Address: [address] [place] [address] Performed By: #### 2 4331-1 #### [facility] CLIA [id number] 1 [place] [address] [place] [facility] CLIA [id number] [address] [place] [address] [place] #### 92670-8 #### [facility] CLIA [id number] [address] [place] [address] [place] Urea nitrogen [Mass/Vol] 14 mg/dL Normal 9-24 [facility] [place] Comment on above: Order Comment: Speci men Type: BLOOD SPECIMEN [facility] Facility: [facility] Address: [address] [place] [address] Performed By: #### 2 4331-1 #### [facility] CLIA [id number] 1 [place] [address] [place] [facility] CLIA [id number] [address] [place] [address] [place] #### 98228-3 #### [facility] CLIA [id number] [address] [place] [address] [place] Lipid 1996 panelon 5 Cholesterol [Mass/Vol] 107 mg/dL Normal <200 [facility] [place] Comment on above: Order Comment: Speci men Type: BLOOD SPECIMEN Ordering Facility: [facility] Address: [facility] [place] [address] Result Comment: <200 mg/dL, Desirable 200-239 mg/dL, Borderline high >239 mg/dL, High Performed By: #### 2 4331-1 #### [facility] CLIA [id number] 1 [place] [address] [place] [facility] CLIA [id number] [address] [place] [address] [place] #### 69319-3 #### [facility] CLIA [id number] [address] [place] [address] [place] Cholesterol in HDL [Mass/Vol] 43 mg/dL Normal >39 [facility] [place] Comment on above: Order Comment: Micheali men Type: BLOOD SPECIMEN Order[facility] Facility: [facility] Address: [address] [place] [address] Result Comment: 40-5 9 mg/dL, Acceptable >59 mg/dL, High: Negative risk factor for coronary heart disease <40 mg/dL, Low: Positive risk factor for coronary heart disease Performed By: #### 2 4331-1 #### [facility] CLIA [id number] 1 [place] [address] [place] [facility] CLIA [id number] [address] [place] [address] [place] #### 97787-5 #### [facility] CLIA [id number] [address] [place] [address] [place] Cholesterol in LDL [Mass/Vol] 51 mg/dL Normal <100 [facility] [place] Comment on above: Order Comment: Micheali men Type: BLOOD SPECIMEN Order[facility] Facility: [facility] Address: [address] [place] [address] Result Comment: <100 mg/dL, Optimal 100-129 mg/dL, Near optimal/above optimal 130-159 mg/dL, Borderline high 160-189 mg/dL, High >189 mg/dL, Very high Secondary prevention optimal LDL Cholesterol levels are recommended to be < 70 mg/dL Performed By: #### 2 4331-1 #### [facility] CLIA [id number] 1 [place] [address] [place] [facility] CLIA [id number] [address] #### 74042-9 #### [facility] CLIA [id number] [address] Cholesterol in LDL/Cholesterol in HDL [Mass ratio] 1.19 {ratio} Normal <2.54 [facility] [place] Comment on above: Order Comment: Speci men Type: BLOOD SPECIMEN Order[facility] Facility: [facility] Address: [address] [place] [address] Result Comment: Refe krishance: 1. National Cholesterol Education Program ATP III Guideline At-A-Glance Quick Desk Reference: National Heart, Lung, and Blood Echo. National Institutes of Health. 2001: NIH Publication No. 01-3305. 2. An International Atherosclerosis Society position paper: global recommendations for the management of dyslipidemia: executive summary, Atherosclerosis. 2014: 232(2):410-413. Performed By: #### 2 4331-1 #### [facility] CLIA [id number] [address] CLIA [id number] [address] [place] [address] [place] [facility] OF [place] #### 70073-6 #### [facility] CLIA [id number] [address] [place] [address] [place] Cholesterol in VLDL [Mass/Vol] 13 mg/dL Normal <30 [facility] [place] Comment on above: Order Comment: Speci men Type: BLOOD SPECIMEN [facility] Facility: [facility] Address: [address] [place] [address] Performed By: #### 2 4331-1 #### [facility] CLIA [id number] [address] STATES OF [facility] CLIA [id number] [address] [place] [address] [place] #### 58982-6 #### [facility] CLIA [id number] [address] [place] [address] [place] Cholesterol non HDL [Mass/Vol] 64 mg/dL Normal <130 [facility] [place] Comment on above: Order Comment: Speci men Type: BLOOD SPECIMEN Ordering Facility: [facility] Address: [address] [place] [address] Result Comment: <130 mg/dL, Optimal 130-159 mg/dL, Near optimal/above optimal 160-189 mg/dL, Borderline high 190-219 mg/dL, High >219 mg/dL, Very high Secondary prevention optimal non HDL Cholesterol levels are recommended to be <100 mg/dL Performed By: #### 2 4331-1 #### [facility] CLIA [id number] [address] OF [facility] CLIA [id number] [address] [place] [address] [place] #### 71069-5 #### [facility] CLIA [id number] [address] [place] [address] [place] Cholesterol.total/Cho lesterol in HDL [Mass ratio] 2.49 {ratio} Normal <5.10 [facility] [place] Comment on above: Order Comment: Speci men Type: BLOOD SPECIMEN [facility]: [facility] Address: [address] [place] [address] Performed By: #### 2 4331-1 #### [facility] CLIA [id number] [address] OF [facility] CLIA [id number] [address] [place] [address] [place] #### 04551-0 #### [facility] CLIA [id number] [address] [place] [address] FASTING TIME 12 hrs Normal [facility] [place] Comment on above: Order Comment: Speci men Type: BLOOD SPECIMEN Order[facility] Facility: [facility] Address: [address] [place] [address] Performed By: #### 2 4331-1 #### [facility] CLIA [id number] [address] CLIA [id number] [address] [place] [address] [place] #### 21852-0 #### [facility] CLIA [id number] [address] [place] [address] [place] Triglyceride [Mass/Vol] 66 mg/dL Normal <150 [facility] [place] Comment on above: Order Comment: Speci ghulam Type: BLOOD SPECIMEN [facility] Address: [address] [place] [address] Result Comment: <150 mg/dL, Normal 150-199 mg/dL, Borderline high 200-499 mg/dL, High >499 mg/dL, Very high Performed By: #### 2 4331-1 #### [facility] CLIA [id number] [address] CLIA [id number] [address] [place] [address] [place] #### 77372-5 #### [facility] CLIA [id number] [address] [place] [address] [place] PT panel Coag (PPP)on 2024 INR Coag (PPP) [Relative time] 2.9 {INR} High 0.9-1.3 [facility] [place] Comment on above: Order Comment: Micheali ghulam Type: BLOOD SPECIMEN [facility] Facility: [facility] Address: [address] [place] [address] Result Comment: Mary min K Antagonist (VKA) Therapeutic Range: INR 2 to 3 (Target INR of 2.5) Note: For patients treated with VKA drugs, such as warfarin, the [place] [employer] 2012 Guideline recommends [...] 2012, 141:7S-47S Avel RA, et al. [facility] 2017, 70: 252-289 Performed By: #### 2 4331-1 #### [facility] CLIA [id number] [address] CLIA [id number] [address] [place] [address] [place] #### 50305-8 #### [facility] CLIA [id number] [address] [place] [address] [place] PT Coag (PPP) [Time] 28.7 s High <13.1 [facility] Comment on above: Order Comment: Speci men Type: BLOOD SPECIMEN [facility] Address: [address] [place] [address] Performed By: #### 2 4331-1 #### [facility] CLIA [id number] [address] CLIA [id number] [address] [place] [address] STATES [facility] #### 89607-4 #### [facility] CLIA [id number] [address] [place] [address] [place] MR Brain WO contraston 05-23 * * *Final Report* * * DATE OF EXAM: May 23 2024 3:14PM M 3015 - MRI BRAIN W QUANT WO [...] dementia protocol and 3-D post-processing using the True Style software at an independent workstation with concurrent [...] to 1.7; Violeta 2008; also Hieu 2010). [facility], [facility]24 * * *Final Report* * * DATE OF EXAM: May 23 2024 3:14PM [facility] 3015 - MRI BRAIN W QUANT WO [...] dementia protocol and 3-D post-processing using the UGOBEQuant software at an independent workstation with concurrent [...] = Focal Lesions 2 = Beginning of Byron 3 = Diffuse Involvement of Entire Region [...] (%). Age-matched r (more content not included)... [facility] MR Unspecified body region 3 D post processingon 05-23-2024 * * *Final Report* * * DATE OF EXAM: May 23 2024 3:14PM [facility] 7867 - MRI 3D BRAIN QUANT / [...] dementia protocol and 3-D post-processing using the True Style software at an independent workstation with concurrent [...] to 1.7; Violeta 2008; also Hieu 2010). [facility] Provider, Richie Hernández - 05/23/2024 * * *Final Report* * * DATE OF EXAM: May 23 2024 3:14PM [facility] 7867 - MRI 3D BRAIN QUANT / [...] dementia protocol and 3-D post-processing using the True Style software at an independent workstation with concurrent [...] = Focal Lesions 2 = Beginning of Byron 3 = Diffuse Involvement of Entire Region [...] impairment, and elderly controls. Neuroimage 43;59 (2008). Wacaseyund et al. A New Rating Scale for Age-Related White Matter Changes Applicable to MRI and CT. Stroke. 32:1318 (2001). * Asymmetry index defined as difference between left and right volumes divided by mean or [(L-R/Mean) x 100] (%). Age-matched reference (more content not included)... [facility] MRI 3D BRAIN QUANTon 025 MRI 3D BRAIN QUANT * * *Final Report* * * DATE OF EXAM: May 23 2024 3:14PM [facility] 7867 - MRI 3D BRAIN QUANT / [...] = Focal Lesions 2 = Beginning of Byron 3 = Diffuse Involvement of Entire Region [...] results from the analysis charts for details. Steel Welder: EDUAR Transcribe Date/Time: May 23 (more content not included)... Normal [facility] MRI BRAIN W QUANT WO IVCONon 05-23-2024 MRI BRAIN W QUANT WO IVCON * * *Final Report* * * DATE OF EXAM: May 23 2024 3:14PM [facility] 3015 - MRI BRAIN W QUANT WO [...] dementia protocol and 3-D post-processing using the UGOBEQuant software at an independent workstation with concurrent [...] = Focal Lesions 2 = Beginning of Byron 3 = Diffuse Involvement of Entire Region [...] results from the analysis charts for details. Steel Welder: EDUAR Transcribe Date/Cuauhtemoc (more content not included)... [facility] No Panel Informationon 05-23 IMPRESSION: No acute intracranial process. Chronic changes and quantitative volumes as described. REFERENCES: White Matter Lesions: 0 = No lesions, including symmetrical, well-defined caps or bands 1 = Focal Lesions 2 = Beginning of Byron 3 = Diffuse Involvement of Entire Region [...] results from the analysis charts for details. 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 current use of anticoagulant [Z79.01]09/22/2016 Paroxysmal atrial fibrillation (HCC) [I48.0] 09/22/2016 Hyperlipidemia [E78.5] 08/26/2022 Encounter Status:Closed by ELANA VALDES on 04/29/24 Normal [facility] CNOVon 04-27-2024 CNOV Office Visit (PATIWR ) ROBY FLORES ([id number]) 1935 M Date Time Provider Department 04/27/24 9:30 AM LUCIANA CISNEROS During your visit today, we recorded the following information about you: Pulse Blood pressure Weight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 Protein Ql (U) 15 mg/dl Negative [facility] Serum or plasma calcium alvaro urement (mass/volume)Ordered By: Brian Cunningham on 02-10-2023 Calcium [Mass/Vol] 8.9 mg/dL 8.5-10.1 [facility] Serum or plasma creatinine m easurement (mass/volume)Ordered By: Brian Cunningham on 02-10-2023 Creatinine [Mass/Vol] 0.80 mg/dL 0.70-1.30 [facility] Comment on above: The validity of the calculated GFR & GFRAA in patients over 70 years has not been determined. Clinical correlation is essential. Serum or plasma urea nitroge n measurement (mass/volume)Ordered By: Brian Cunningham on 02-10-2023 Urea nitrogen [Mass/Vol] 19 mg/dL 7-18 [facility] Squamous epithelial cells de tection in urine sediment by light microscopyOrdered By: Brian Cunningham on 02-10-2023 Epithelial cells.squamous LM Ql (Urine sed) 0 SEEN /hpf 0-5 [facility] Thin prep Papanicolaou smear with manual screeningOrdered By: Brian Cunningham on 02-10-2023 Thin prep Papanicolaou smear with manual screening 2 5-15 [facility] Urine blood detectionOrdered By: Brian Cunningham on 02-10-2023 RBC Ql (U) Negative Negative [facility] RBC Ql (U) 0 SEEN /hpf 0-5 [facility] Urine clarityOrdered By: Caitlyn Cunningham on 02-10-2023 Clarity (U) Clear Clear [facility] Urine color determinationOrd ered By: Brian Cunningham on 02-10-2023 Color (U) Yellow Yellow [facility] Urine glucose detectionOrder ed By: Brian Cunningham on 02-10-2023 Glucose Ql (U) Normal mg/dl Normal [facility] Urine leukocyte esterase det ection by dipstickOrdered By: Brian Cunningham on 02-10-2023 Leukocyte esterase Test strip Ql (U) 25 /ul Negative [facility] Urine pHOrdered By: Brian swain on 02-10-2023 pH (U) 6.5 [pH] 5.0 - 8.0 [facility] Urine sediment bacteria coun t by microscopy (number/high power field)Ordered By: Brian Cunningham on 02-10-2023 Bacteria LM.HPF (Urine sed) [#/Area] 0 /[HPF] None Seen [facility] Urine specific gravity measu rementOrdered By: Brian Cunningham on 02-10-2023 Specific gravity (U) [Rel density] 1.015 1.002-1.03 0 [facility] Urobilinogen Auto test strip Ql (U)Ordered By: Brian Cunningham on 02-10-2023 Urobilinogen Ql (U) 4 mg/dl Normal [facility] CT HEAD OR BRAIN W/O CONTRAS [...] 11/17/2022 4:26:20 PM Ordering Provider: STERLING LYNCH [facility] ([place]) XR Pelvis and Hip - left AP and Lateral frogon 05-21-2022 IMPRESSION: No acute fracture or hip dislocation Steel Welder: EDUAR Transcribe Date/Time: May 21 2022 3:41P Dictated by : JUDY MCKENZIE MD This examination was interpreted and the report reviewed and electronically signed by: JUDY MCKENZIE MD on May 21 2022 3:43PM [facility] * * *Final Report* [...] Small acetabular osteophytes. DIVISION OF RADIOLOGY Provider, [facility] - 05/21/2022 * * *Final Report* [...] IMPRESSION: No acute fracture or hip dislocation Steel Welder: PSCB Transcribe Date/Time: May 21 2022 3:41P Dictated by : JUDY MCKENZIE MD This examination was interpreted and the report reviewed and electronically signed by: JUDY MCKENZIE MD on May 21 2022 3:43PM EST [facility] Radiology Study observation (narrative) [facility] XR Pelvis and Hip - left AP and Lateral frogOrdered By: Ccf Provider on 05-21-2022 [facility] PT panel Coag (PPP)on 2022 INR Coag (Bld) [Relative time] 1.7 {INR} [facility] Basophil percentageon 2021 Cholesterol [Mass/Vol] 152 mg/dL <200 [facility] Work Phone: Comment on above: <200 mg/dL Desirable 200-240 mg/dL Borderline >240 mg/dL High Risk Triglyceride [Mass/Vol] 76 mg/dL <199 [facility] Work Phone: Comment on above: The drugs N-Acetylcy steine and Metamizole may falsely depress this assay.Serum Triglycerides Reference Interval Normal <150 mg/dL Borderline high 150 - 199 mg/dL High 200 - 499 mg/dL Very High > or = 500 mg/dL INR in Blood by Coagulation assayon 12-22-2021 INR Coag (Bld) [Relative time] 2.5 {INR} [facility] Work Phone: Laboratory - Chemistry and C hemistry - challengeon 12-22-2021 Magnesium [Mass/Vol] 2.1 mg/dL 1.6-2.6 [facility] Work Phone: Laboratory - Coagulationon 1 PT Coag (PPP) [Time] 27.0 s 11.7-14.9 [facility] Work Phone: No Panel Informationon 12-22 Thyroid Stimulating Hormone (TSH) 0.42 uIU/mL 0.358-3.74 [facility] Work Phone: Serum or plasma cholesterol in HDL measurement (mass/volume)on 12-22-2021 Cholesterol in HDL [Mass/Vol] 35 mg/dL >40 [facility] Work Phone: Comment on above: The drugs N-Acetylcy steine and Metamizole may falsely depress this assay. Reference Range HDL <40 mg/dL Low HDL Cholesterol HDL >or= 60 mg/dL High HDL Cholesterol Serum or plasma cholesterol in VLDL measurement (mass/volume)on 12-22-2021 Cholesterol in VLDL [Mass/Vol] 15 mg/dL 5-40 [facility] Work Phone: Serum or plasma low density lipoprotein (LDL) cholesterol measurement (mass/volume)on 12-22-2021 Cholesterol in LDL [Mass/Vol] 102 mg/dL 0-130 [facility] Work Phone: Whole blood hemoglobin A1c/t otal hemoglobin ratio (mass fraction)on 12-22-2021 HbA1c (Bld) [Mass fraction] 5.9 % 3.8-5.6 [facility] Work Phone: Comment on above: Normal < 5.7 % Predi abetic 5.7 - 6.4 % Diabetic >or= 6.5 % Please note range changes. Absolute lymphocyte counton 12-21-2021 Lymphocytes Auto (Unsp spec) [#/Vol] 1.23 10*3/uL 0.83-4.51 [facility] Work Phone: Basophil percentageon 2021 Basophils/100 WBC (Bld) 0.4 % 0-1 [facility] Work Phone: Chloride [Moles/Vol] 106 mmol/L 98-107 [facility] Work Phone: Eosinophils/100 WBC (Bld) 1.4 % 0-5 [facility] Work Phone: Glucose [Mass/Vol] 107 mg/dL 74-106 [facility] Work Phone: Comment on above: Fasting Glucose resu lt from 100 to 125 mg/dL suggests IMPAIRED HOMEOSTASIS per A.D.A. criteria. Neutrophils (Bld) [#/Vol] 5.7 10*3/uL 2.0-7.7 [facility] Work Phone: Neutrophils/100 WBC (Bld) 72.4 % 47-70 [facility] Work Phone: Potassium [Moles/Vol] 3.7 mmol/L 3.5-5.1 [facility] Work Phone: Sodium [Moles/Vol] 141 mmol/L 136-145 [facility] Work Phone: WBC (Bld) [#/Vol] 7.9 10*3/uL 4.4-11.0 [facility] Work Phone: Blood erythrocytes count (nu mber/volume)on 12-21-2021 RBC (Bld) [#/Vol] 4.85 10*6/uL 4.6-6.2 [facility] Work Phone: Blood hemoglobin measurement (mass/volume)on 12-21-2021 Hemoglobin (Bld) [Mass/Vol] 14.5 g/dL 13.0-16.5 [facility] Work Phone: Blood lymphocytes/100 leukoc yteson 12-21-2021 Lymphocytes/100 WBC (Bld) 15.5 % 19-41 [facility] Work Phone: Blood monocytes/100 leukocyt eson 12-21-2021 Monocytes/100 WBC (Bld) 9.9 % 0-10 [facility] Work Phone: Blood platelet mean volumeon 12-21-2021 Platelet mean volume (Bld) [Entitic vol] 10.2 fL 6.2-12.0 [facility] Work Phone: Determination of erythrocyte mean corpuscular volume (MCV)on 12-21-2021 MCV (RBC) [Entitic vol] 92.0 fL 80-94 [facility] Work Phone: Hematocrit Auto (Bld) [Volum e fraction]on 12-21-2021 Hematocrit (Bld) [Volume fraction] 44.6 % 40-54 [facility] Work Phone: INR in Blood by Coagulation assayon 12-21-2021 INR Coag (Bld) [Relative time] 2.3 {INR} [facility] Work Phone: Laboratory - Chemistry and C hemistry - challengeon 12-21-2021 CO2 [Moles/Vol] 29.0 mmol/L 21.0-32.0 [facility] Work Phone: Urea nitrogen/Creatinine [Mass ratio] 21.8 mg/mg 10-20 [facility] Work Phone: Laboratory - Coagulationon 1 aPTT Coag (Bld) [Time] 36.6 s 24.1-36.2 [facility] Work Phone: PT Coag (PPP) [Time] 24.7 s 11.7-14.9 [facility] Work Phone: Laboratory - Hematology and Cell countson 12-21-2021 Erythrocyte distribution width (RBC) [Entitic vol] 42.2 fL 35.1-43.9 [facility] Work Phone: Erythrocyte distribution width (RBC) [Ratio] 12.5 % 11.6-14.6 [facility] Work Phone: Immature granulocytes/100 WBC (Bld) 0.400 % 0.0-0.9 [facility] Work Phone: Comment on above: IG% - Immature Granu locytes (promyelocytes, myelocytes and metamyelocytes) > 1% indicates that a LEFT SHIFT is Present. MCH (RBC) [Entitic mass] 29.9 pg 27.0-32.0 [facility] Work Phone: Nucleated RBC/100 WBC (Bld) [Ratio] 0 % 0-5 [facility] Work Phone: MCHC Auto (RBC) [Mass/Vol]on 12-21-2021 MCHC (RBC) [Mass/Vol] 32.5 g/dL 32-36 [facility] Work Phone: No Panel Informationon 12-21 Estimated Creatinine Clearance Calc 66.90 ml/min [facility] Work Phone: Estimated GFR (MDRD) Amer 107 mL/min >60 [facility] Work Phone: Comment on above: GFR Calc Estimated GFR (MDRD) Non-Af Amer 88 mL/min >60 [facility] Work Phone: Comment on above: Non- GFR Calc Troponin I High Sensitivity 13 pg/mL 3.0-78.0 [facility] Work Phone: Comment on above: Please Note: New Hiwot t Units and Gender Specific Reference Ranges. For more information see Policy Stat Procedure [place] High Sensitivity Troponin (TNIH) and attachments. Platelets bldon 12-21-2021 Platelets (Bld) [#/Vol] 241 10*3/uL 150-450 [facility] Work Phone: Serum or plasma calcium alvaro urement (mass/volume)on 12-21-2021 Calcium [Mass/Vol] 9.2 mg/dL 8.5-10.1 [facility] Work Phone: Serum or plasma creatinine m easurement (mass/volume)on 12-21-2021 Creatinine [Mass/Vol] 0.87 mg/dL 0.70-1.30 [facility] Work Phone: Comment on above: The validity of the calculated GFR & GFRAA in patients over 70 years has not been determined. Clinical correlation is essential. Serum or plasma urea nitroge n measurement (mass/volume)on 12-21-2021 Urea nitrogen [Mass/Vol] 19 mg/dL 10-07 [facility] Work Phone: Thin prep Papanicolaou smear with manual screeningon 12-21-2021 Thin prep Papanicolaou smear with manual screening 6 - [facility] Work Phone: CBC panel Auto (Bld)on 07-08 Erythrocyte distribution width (RBC) [Ratio] 13.1 % 11.5 - 15.0 % [facility] Hematocrit (Bld) [Volume fraction] 49.5 % 39.0 - 51.0 % [facility] Hemoglobin (Bld) [Mass/Vol] 15.9 g/dL 13.0 - 17.0 g/dL [facility] MCH (RBC) [Entitic mass] 29.6 pg 26.0 - 34.0 pg [facility] MCHC (RBC) [Mass/Vol] 32.1 g/dL 30.5 - 36.0 g/dL [facility] MCV (RBC) [Entitic vol] 92.2 fL 80.0 - 100.0 fL [facility] Nucleated RBC (Bld) [#/Vol] 10*3/uL <0.01 k/uL [facility] Platelet mean volume (Bld) [Entitic vol] 10.7 fL 9.0 - 12.7 fL [facility] Platelets (Bld) [#/Vol] 235 10*3/uL 150 - 400 k/uL [facility] RBC (Bld) [#/Vol] 5.37 10*6/uL 4.20 - 6.00 m/uL [facility] WBC (Bld) [#/Vol] 10.33 10*3/uL 3.70 - 11.00 k/uL [facility] XR Lumbar spine 3 Viewson IMPRESSION: 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 Steel Welder: PSCB Transcribe Date/Time: Mar 13 2020 8:34A Dictated by : GABRIELLE BENTLEY MD This examination was interpreted and the report reviewed and electronically signed by: GABRIELLE BENTLEY MD on Mar 13 2020 8:35AM [facility] * * *Final Report* [...] spine are presented. FINDINGS: There are five nvc-baf-zxzdnsr lumbar vertebrae. No fracture or subluxations are noted. L5-S1 disc space narrowing is demonstrated. There is significant osteophyte formation. Kissing spine seen on lateral view. DIVISION OF RADIOLOGY Provider, Richie estevez Echo - 03/13/2020 * * *Final Report* * [...] spine are presented. FINDINGS: There are five fal-gvl-mkeefun lumbar vertebrae. No fracture or subluxations are noted. L5-S1 disc space narrowing is demonstrated. There is significant osteophyte formation. Kissing spine seen on lateral view. 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 Steel Welder: PSCB Transcribe Date/Time: Mar 13 2020 8:34A Dictated by : GABRIELLE BENTLEY MD This examination was interpreted and the report reviewed and electronically signed by: GABRIELLE BENTLEY MD on Mar 13 2020 8:35AM EST [facility] XR Lumbar spine 3 ViewsOrder ed By: Ccf Provider on 03-13-2020 [facility] XR Lumbar spine 3 Viewson Radiology Study observation (narrative) [facility] PROGRESSon 06-09-2017 PROGRESS HNO ID: [id number] Author: Vesta Marin PSR Service: (none) Author Type: (none) Type: Progress Notes Filed: 06/09/2017 4:13 PM Note Text: Spoke with the patient and scheduled his Corotid Doppler on June 24, 2017 at 9:00 am Normal [facility] CNOVon 06-02-2017 CNOV Office Visit (AGCARDWST) -------ROBY FLORES ([id number]) 1935 MDate Time Provider Department06/02/17 9:00 AM [...] - METBeta jazmin for ASHD with prior CT or prior LVEFANDlt;40 (NQF 0070) - N/ABeta [...] with treatment plan.This note was generated using [employer] voice recognition system, and there may besome [...] There is no significantchange.Electronic ally Signed:Darrell Oliveira [facility] 2017 9:15 [facility]: Carmen Vasquez MD 06/02/2017 9:21 [...] 24, 2017 at9:00 amReferring Provider: DARRELL OLIVEIRA [[id number]]Allergies As of Date: 06/02/2017(No Known Allergies)Date Reviewed: 06/02/2017Reviewed by: Russell Kyle - Fully AssessedReason for Visit: Recheck [92]Primary Visit Diagnosis:ASHD (arteriosclerotic heart disease) [I25.10] Other Visit Diagnosis:PAF (paroxysmal atrial fibrillation) (HCC) [I48.0]Order(s):ECG B/O W INTERP (MED OFFICE) [ECG06] Order #: [id number] Fosinopril Sodium 40 mg tabletTake 1/2 tablet [...] FOR* 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 Please give serious thought to the following areas and commit to making skilled nursing changes. EAT A WHOLE FOOD, PLANT BASED [...] on file. Cosign accepted by STAS MORA MD[[id number]] on 09/30/2016 2:01 PM Fosinopril Sodium 40 [...] on file.Follow-up and Disposition History RecordedEncounter Number: [id number] Status:Closed by DARRELL OLIVEIRA MD on 06/02/17 [facility] PROGRESSon 06-02-2017 PROGRESS HNO ID: [id number] thor: Darrell Stahl: (none)Author Type: PhysicianType: Progress NotesFiled: 06/02/2017 9:31 AMNote Text:PERTINENT CARDIAC HISTORYASHD - PCI LAD 2003HTNHLCarotid diseaseSyncopePAFADHERENCE TO GUIDELINESACE-I or ARB for HF with prior LVEF<40 (NQF 0081) - N/AASA or Plavix for ASHD (NQF 0067) - METBeta jzamin for ASHD with prior CT or prior LVEF<40 (NQF 0070) - N/ABeta [...] with treatment plan.This note was generated using [employer] voice recognition system, and theremay be some [...] ectopics. 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] INVALID FOR* director 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 current use of anticoagulant [Z79.01]INVALID FOR* Paroxysmal [...] Status:Closed by ELANA HOOD MA on 03/02/17 [facility] OBSOLETEon 01-23-2017 OBSOLETE Refill (AGCARDWST) -------ROBY FLORES ([id number]) 1935 MDate Time Provider Ygppsodfrr65/3/17 DARRELL OLIVEIRA AGCARDWST During your visit today, we recorded the following information about you:Dao Bishop RN, RN 01/23/2017 3:15 PM SignedPatient phones requesting refills as follows:Pending Prescriptions Disp Refills WARFARIN 2.5 MG TABLET 45 tablet 11 Sig: Take 1 tablet by mouth daily as directed. 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 Status:Closed by DAO BISHOP on 01/23/17 [facility] Vital Signs Date Time Vital Sign Value Performing Clinician Facility 09-06-2024 14:15-0400 Body temperature 98 [degF] Dr. Stas Mora MD Work Phone: 2(087)[phone] [place] [address] 09-06-2024 14:15-0400 Diastolic blood pressure 88 mm[Hg] Dr. Stas Mora MD Work Phone: 7(600)222-428926 [place] [address] 09-06-2024 14:15-0400 Heart rate 78 /min Dr. Stas Mora MD Work Phone: 9(176)911-967826 [place] [address] 09-06-2024 14:15-0400 Respiratory rate 18 /min Dr. Stas Mora MD Work Phone: 7(899)299-480926 [place] [address] 09-06-2024 14:15-0400 SaO2% (BldA) [Mass fraction] 97 % Dr. Stas Mora MD Work Phone: 0(313)[phone] [place] [address] 09-06-2024 14:15-0400 Systolic blood pressure 137 mm[Hg] Dr. Stas Mora MD Work Phone: 6(609)133-511926 [place] [address] 09-04-2024 12:05-0400 Inhaled oxygen flow rate 2 L/min Dr. Stas Mora MD Work Phone: 9(599)353-187426 [place] [address] 09-01-2024 11:52-0400 Body height 182.[address] Stas Mora MD Work Phone: 0(989)821-947026 [place] [address] 09-01-2024 11:52-0400 Body mass index (BMI) [Ratio] 21.6 kg/m2 Dr. Stas Mora MD Work Phone: 8(750)935-957126 [place] [address] 09-01-2024 11:52-0400 Body weight 72.[address] Stas Mora MD Work Phone: 5(757)288-193626 [place] [address] 09-01-2024 11:00-0400 Diastolic blood pressure 79 mm[Hg] Dr. Stas Mora MD Work Phone: 4(701)760-956426 [place] [address] 09-01-2024 11:00-0400 Heart rate 70 /min Dr. Stas Mora MD Work Phone: 9(255)338-667426 [place] [address] 09-01-2024 11:00-0400 Respiratory rate 18 /min Dr. Stas Mora MD Work Phone: [facility] 09-01-2024 11:00-0400 SaO2% (BldA) [Mass fraction] 98 % Dr. Stas Mora MD Work Phone: [facility] 09-01-2024 11:00-0400 Systolic blood pressure 180 mm[Hg] Dr. Stas Mora MD Work Phone: [facility] 09-01-2024 09:52-0400 Body temperature 98.9 [degF] Dr. Stas Mora MD Work Phone: 8(318)977-819826 [place] [address] 09-01-2024 07:31-0400 Body height 182.[address] Stas Mora MD Work Phone: 2(162)[phone] [place] [address] 09-01-2024 07:31-0400 Body mass index (BMI) [Ratio] 23.4 kg/m2 Dr. Stas Mora MD Work Phone: 2(259)306-246926 [place] [address] 09-01-2024 07:31-0400 Body weight 78.[address] Stas Mora MD Work Phone: [facility] 08-31-2024 11:05-0400 Body mass index (BMI) [Ratio] 22.35 kg/m2 Luciana Cisneros MD Work Phone: [facility] 08-31-2024 11:05-0400 Body weight 73.94 kg Luciana Cisneros MD Work Phone: [facility] 08-31-2024 11:05-0400 Diastolic blood pressure 74 mm[Hg] Luciana Cisneros MD Work Phone: [facility] 08-31-2024 11:05-0400 Heart rate 74 /min Luciana Cisneros MD Work Phone: [facility] 08-31-2024 11:05-0400 Respiratory rate 12 /min Luciana Cisneros MD Work Phone: [facility] 08-31-2024 11:05-0400 SaO2% (BldA) [Mass fraction] 98 % Luciana Cisneros MD Work Phone: [facility] 08-31-2024 11:05-0400 Systolic blood pressure 124 mm[Hg] Luciana Cisneros MD Work Phone: [facility] 07-28-2024 11:12-0400 Diastolic blood pressure 78 mm[Hg] Stas Mora MD Work Phone: [facility] 07-28-2024 11:12-0400 Systolic blood pressure 136 mm[Hg] Stas Mora MD Work Phone: [facility] 07-28-2024 11:10-0400 Body mass index (BMI) [Ratio] 22.4 kg/m2 Stas Mora MD Work Phone: [facility] 07-28-2024 11:10-0400 Body weight 74.1 kg Stas Mora MD Work Phone: [facility] 07-28-2024 11:10-0400 Heart rate 56 /min Stas Mora MD Work Phone: [facility] 07-28-2024 11:10-0400 Respiratory rate 16 /min Stas Mora MD Work Phone: [facility] 06-01-2024 14:52-0400 Body height 181.9 cm Luciana Cisneros MD Work Phone: [facility] 06-01-2024 14:52-0400 Body mass index (BMI) [Ratio] 22.33 kg/m2 Luciana Cisneros MD Work Phone: [facility] 06-01-2024 14:52-0400 Body weight 73.85 kg Luciana Cisneros MD Work Phone: [facility] 06-01-2024 14:52-0400 Diastolic blood pressure 60 mm[Hg] Luciana Cisneros MD Work Phone: [facility] 06-01-2024 14:52-0400 Heart rate 46 /min Luciana Cisneros MD Work Phone: [facility] 06-01-2024 14:52-0400 SaO2% (BldA) [Mass fraction] 98 % Luciana Cisneros MD Work Phone: [facility] 06-01-2024 14:52-0400 Systolic blood pressure 132 mm[Hg] Luciana Cisneros MD Work Phone: [facility] 05-26-2024 09:18-0500 Diastolic blood pressure 82 mm[Hg] Stas Mora MD Work Phone: [facility] 05-26-2024 09:18-0500 Systolic blood pressure 144 mm[Hg] Stas Mora MD Work Phone: [facility] 05-26-2024 09:06-0500 Body mass index (BMI) [Ratio] 22.19 kg/m2 Stas Mora MD Work Phone: [facility] 05-26-2024 09:06-0500 Body weight 73.5 kg Stas Mora MD Work Phone: [facility] 05-26-2024 09:06-0500 Heart rate 56 /min Stas Mora MD Work Phone: [facility] 05-26-2024 09:06-0500 Respiratory rate 18 /min Stas Mora MD Work Phone: [facility] 04-27-2024 09:34-0500 Body height 182 cm Luciana Cisneros MD Work Phone: [facility] 04-27-2024 09:34-0500 Body mass index (BMI) [Ratio] 22.51 kg/m2 Luciana Cisneros MD Work Phone: [facility] 04-27-2024 09:34-0500 Body weight 74.57 kg Luciana Cisneros MD Work Phone: [facility] 04-27-2024 09:34-0500 Diastolic blood pressure 62 mm[Hg] Luciana Cisneros MD Work Phone: [facility] 04-27-2024 09:34-0500 Heart rate 60 /min Luciana Cisneros MD Work Phone: [facility] 04-27-2024 09:34-0500 SaO2% (BldA) [Mass fraction] 98 % Luciana Cisneros MD Work Phone: [facility] 04-27-2024 09:34-0500 Systolic blood pressure 110 mm[Hg] Luciana Cisneros MD Work Phone: [facility] 11-26-2023 10:33-0400 Diastolic blood pressure 80 mm[Hg] Stas Mora MD Work Phone: [facility] 11-26-2023 10:33-0400 Systolic blood pressure 144 mm[Hg] Stas Mora MD Work Phone: [facility] 11-26-2023 10:22-0400 Body mass index (BMI) [Ratio] 21.95 kg/m2 Stas Mora MD Work Phone: [facility] 11-26-2023 10:22-0400 Body weight 71.4 kg Stas Mora MD Work Phone: [facility] 11-26-2023 10:22-0400 Heart rate 60 /min Stas Mora MD Work Phone: [facility] 11-26-2023 10:22-0400 Respiratory rate 18 /min Stas Mora MD Work Phone: [facility] 09-15-2023 08:38-0400 Body mass index (BMI) [Ratio] 24.52 kg/m2 Stas Mora MD Work Phone: [facility] 09-15-2023 08:38-0400 Body weight 79.74 kg Stas Mora MD Work Phone: [facility] 09-15-2023 08:38-0400 Diastolic blood pressure 84 mm[Hg] Stas Mora MD Work Phone: [facility] 09-15-2023 08:38-0400 Heart rate 76 /min Stas Mora MD Work Phone: [facility] 09-15-2023 08:38-0400 Respiratory rate 18 /min Stas Mora MD Work Phone: [facility] 09-15-2023 08:38-0400 Systolic blood pressure 138 mm[Hg] Stas Mora MD Work Phone: [facility] 08-14-2023 09:57-0400 Body mass index (BMI) [Ratio] 22.59 kg/m2 Stas Mora MD Work Phone: [facility] 08-14-2023 09:57-0400 Body weight 73.48 kg Stas Mora MD Work Phone: [facility] 08-14-2023 09:57-0400 Diastolic blood pressure 80 mm[Hg] Stas Mora MD Work Phone: [facility] 08-14-2023 09:57-0400 Heart rate 64 /min Stas Mora MD Work Phone: [facility] 08-14-2023 09:57-0400 Respiratory rate 14 /min Stas Mora MD Work Phone: [facility] 08-14-2023 09:57-0400 Systolic blood pressure 140 mm[Hg] Stas Mora MD Work Phone: [facility] 06-01-2023 15:08-0400 Body weight 75.75 kg Stas Mora MD Work Phone: [facility] 06-01-2023 15:08-0400 Diastolic blood pressure 90 mm[Hg] Stas Mora MD Work Phone: [facility] 06-01-2023 15:08-0400 Heart rate 82 /min Stas Mora MD Work Phone: [facility] 06-01-2023 15:08-0400 Respiratory rate 16 /min Stas Mora MD Work Phone: [facility] 06-01-2023 15:08-0400 SaO2% (BldA) [Mass fraction] 100 % Stas Mora MD Work Phone: [facility] 06-01-2023 15:08-0400 Systolic blood pressure 140 mm[Hg] Stas Mora MD Work Phone: [facility] 02-16-2023 13:57-0500 Diastolic blood pressure 62 mm[Hg] Stas Mora MD Work Phone: [facility] 02-16-2023 13:57-0500 Heart rate 62 /min Stas Mora MD Work Phone: [facility] 02-16-2023 13:57-0500 Respiratory rate 16 /min Stas Mora MD Work Phone: [facility] 02-16-2023 13:57-0500 Systolic blood pressure 110 mm[Hg] Stas Mora MD Work Phone: [facility] 02-10-2023 16:59-0500 Diastolic blood pressure 68 mm[Hg] [facility] 02-10-2023 16:59-0500 Heart rate 79 /min [facility] 02-10-2023 16:59-0500 Respiratory rate 12 /min [facility] 02-10-2023 16:59-0500 SaO2% (BldA) [Mass fraction] 98 % [facility] 02-10-2023 16:59-0500 Systolic blood pressure 153 mm[Hg] [facility] 02-10-2023 14:37-0500 Body mass index (BMI) [Ratio] 22.1 kg/m2 [facility] 02-10-2023 14:37-0500 Body weight 74.3 kg [facility] 02-10-2023 14:32-0500 Body height 182.88 cm [facility] 02-10-2023 14:32-0500 Body temperature 98 [degF] [facility] 11-17-2022 17:22-0400 Diastolic Blood Pressure Non-Invasive 68 1 STERLING LYNCH DO [facility] 11-17-2022 17:22-0400 Heart rate 76 /min STERLING LYNCH DO [facility] 11-17-2022 17:22-0400 Respiratory rate 18 /min STERLING LYNCH DO [facility] 11-17-2022 17:22-0400 Systolic Blood Pressure Non-Invasive 126 1 STERLING DAIGLET DO [facility] 11-17-2022 15:23-0400 Body height 185.4 cm STERLING DAIGLET DO [facility] 11-17-2022 15:23-0400 Body temperature 97.88 [degF] STERLING DAIGLET DO [facility] 11-17-2022 15:23-0400 Body weight 79.6 kg STERLING LYNCH DO [facility] 11-17-2022 15:23-0400 Diastolic Blood Pressure Non-Invasive 70 1 STERLING DAIGLET [facility] 11-17-2022 15:23-0400 Heart rate 89 /min STERLING LYNCH DO [facility] 11-17-2022 15:23-0400 Respiratory rate 18 /min STERLING LYNCH DO [facility] 11-17-2022 15:23-0400 Systolic Blood Pressure Non-Invasive 134 1 STERLING LYNCH DO [facility] 08-26-2022 13:12-0400 Body height 180.3 cm Stas Mora MD Work Phone: [facility] 08-26-2022 13:12-0400 Body weight 78.74 kg Stas Mora MD Work Phone: [facility] 08-26-2022 13:12-0400 Diastolic blood pressure 74 mm[Hg] Stas Mora MD Work Phone: [facility] 08-26-2022 13:12-0400 Heart rate 66 /min Stas Mora MD Work Phone: [facility] 08-26-2022 13:12-0400 Respiratory rate 16 /min Stas Mora MD Work Phone: [facility] 08-26-2022 13:12-0400 Systolic blood pressure 122 mm[Hg] Stas Mora MD Work Phone: [facility] 12-26-2021 11:22-0400 Body weight 78.56 kg Stas Mora MD Work Phone: [facility] 12-26-2021 11:22-0400 Diastolic blood pressure 80 mm[Hg] Stas Mora MD Work Phone: [facility] 12-26-2021 11:22-0400 Heart rate 58 /min Stas Mora MD Work Phone: [facility] 12-26-2021 11:22-0400 Respiratory rate 16 /min Stas Mora MD Work Phone: [facility] 12-26-2021 11:22-0400 Systolic blood pressure 142 mm[Hg] Stas Mora MD Work Phone: [facility] 12-22-2021 11:13-0400 Body temperature 97.6 [degF] Dr. Stas Mora Work Phone: [facility] Work Phone: 12-22-2021 11:13-0400 Diastolic blood pressure 58 mm[Hg] Dr. Stas Mora Work Phone: [facility] Work Phone: 12-22-2021 11:13-0400 Heart rate 63 /min Dr. Stas Mora Work Phone: [facility] Work Phone: 12-22-2021 11:13-0400 Respiratory rate 16 /min Dr. Stas Mora Work Phone: [facility] Work Phone: 12-22-2021 11:13-0400 SaO2% (BldA) [Mass fraction] 96 % Dr. Stas Mora Work Phone: [facility] Work Phone: 12-22-2021 11:13-0400 Systolic blood pressure 142 mm[Hg] Dr. Stas Mora Work Phone: [facility] Work Phone: 12-21-2021 20:06-0400 Body height 182.[address] Stas Mora Work Phone: [facility] Work Phone: 12-21-2021 20:06-0400 Body mass index (BMI) [Ratio] 22.6 kg/m2 Dr. Stas Mora Work Phone: [facility] Work Phone: 12-21-2021 20:06-0400 Body weight 75.[address] Stas Mora Work Phone: [facility] Work Phone: 12-21-2021 19:15-0400 Diastolic blood pressure 81 mm[Hg] [facility] Work Phone: 12-21-2021 19:15-0400 Heart rate 70 /min [facility] Work Phone: 12-21-2021 19:15-0400 Respiratory rate 18 /min [facility] Work Phone: 12-21-2021 19:15-0400 SaO2% (BldA) [Mass fraction] 96 % [facility] Work Phone: 12-21-2021 19:15-0400 Systolic blood pressure 171 mm[Hg] [facility] Work Phone: 12-21-2021 19:02-0400 Body temperature 97.6 [degF] [facility] Work Phone: 12-21-2021 18:17-0400 Body height 182.88 cm [facility] Work Phone: 12-21-2021 18:17-0400 Body mass index (BMI) [Ratio] 24.2 kg/m2 [facility] Work Phone: 12-21-2021 18:17-0400 Body weight 80.9 kg [facility] Work Phone: 09-05-2021 11:21-0400 Body height 182.9 cm Stas Mora MD Work Phone: [facility] 09-05-2021 11:21-0400 Body weight 80.2 kg Stas Mora MD Work Phone: [facility] 09-05-2021 11:21-0400 Diastolic blood pressure 70 mm[Hg] Stas Mora MD Work Phone: [facility] 09-05-2021 11:21-0400 Heart rate 62 /min Stas Mora MD Work Phone: [facility] 09-05-2021 11:21-0400 Respiratory rate 16 /min Stas Mora MD Work Phone: [facility] 09-05-2021 11:21-0400 Systolic blood pressure 136 mm[Hg] Stas Mora MD Work Phone: [facility] 07-08-2021 10:41-0400 Body weight 83.55 kg Stas Mora MD Work Phone: [facility] 07-08-2021 10:41-0400 Diastolic blood pressure 78 mm[Hg] Stas Mora MD Work Phone: [facility] 07-08-2021 10:41-0400 Heart rate 60 /min Stas Mora MD Work Phone: [facility] 07-08-2021 10:41-0400 Respiratory rate 16 /min Stas Mora MD Work Phone: [facility] 07-08-2021 10:41-0400 Systolic blood pressure 120 mm[Hg] Stas Mora MD Work Phone: [facility] Encounters Encounter Date Encounter Type Care Provider Facility Start: 12-21-2024 ambulatory Shayy GAMA Fa cility:[facility] Start: 12-14-2024 ambulatory Stas Mora Facilit y:[facility] Start: 11-30-2024 ambulatory Stas Mora Facilit y:[facility] Start: 11-29-2024 End: 11-29-2024 ambulatory Stas Mora Facility:[facility] Start: 11-25-2024 ambulatory Stas Mora Facilit y:[facility] Start: 11-24-2024 End: 11-24-2024 ambulatory Stas Mora Facility:[facility] Start: 11-23-2024 ambulatory Stas Mora Facilit y:[facility] Start: 11-23-2024 [facility] [place] Start: 11-02-2024 ambulatory Shayy GAMA Fa cility:[facility] Start: 11-02-2024 Registered Referred Shayy [facility] - [address] Start: 10-31-2024 ambulatory Shayy GAMA Fa cility:[facility] Start: 10-31-2024 Registered Referred Shayy MaloneyL - [place] Start: 10-25-2024 End: 10-25-[address] Stas Mora MD Work Phone: -[facility] Start: 10-25-2024 End: 10-25-[address] Shayy Curtis MD -[facility] Work Phone: Start: 10-20-2024 End: 10-20-[address] Stas Mora MD Work Phone: -[facility] Start: 10-20-2024 End: 10-20-2024 Patient encounter procedure Halina HO -[facility] Work Phone: Start: 10-06-2024 ambulatory Stas Mora Facilit y:[facility] Start: 10-06-2024 Registered Referred Shayy Maloney[place] - [address] Start: 10-05-2024 ambulatory Stas Mora Facilit y:[facility] Start: 10-05-2024 Registered Referred Shayy [place] Start: 09-30-2024 End: 09-30-[address] Stas Mora MD Work Phone: -[facility] Start: 09-30-2024 End: 09-30-2024 Patient encounter procedure Halina Carmona DISPATCH[employer] DISPOSAL-C -[facility] Work Phone: Start: 09-29-2024 ambulatory Shayy GAMA Fa cility:[facility] Start: 09-29-2024 Registered Referred Shayy Cardozo Start: 09-28-2024 End: 09-28-[address] Stas Mora MD Work Phone: -[facility] Start: 09-28-2024 End: 09-28-2024 Departed Referred Shayy Cardozo Start: 09-28-2024 Registered Referred Shayy Cardozo Start: 09-28-2024 End: 09-28-2024 ambulatory Shayy GAMA Facility:[facility] Start: 09-26-2024 End: 09-26-[address] Stas Mora MD Work Phone: -[facility] Start: 09-26-2024 End: 09-26-2024 Departed Referred Shayy Cardozo Start: 09-26-2024 Registered Referred Shayy Cardozo Start: 09-26-2024 End: 09-26-2024 ambulatory Shayy GAMA Facility:[facility] Start: 09-23-2024 ambulatory Efbaldomero GAMA Fa cility:[facility] Start: 09-23-2024 Registered Referred Shayy Cardozo Start: 09-21-2024 End: 09-22-2024 Telephone encounter Stas Mora MD Work Phone: [facility] [place] Start: 09-21-2024 ambulatory Efewongbe Gabee OLS Fa cility:[facility] Start: 09-21-2024 Registered Referred Shayy Cardozo Start: 09-20-2024 End: 09-20-[address] Stas Mora MD Work Phone: [facility] Start: 09-20-2024 End: 09-20-[address] Shayy Curtis MD -[facility] Work Phone: Start: 09-19-2024 ambulatory Efewongbe Oleghe OLS Fa cility:[facility] Start: 09-19-2024 Registered Referred Shayy Cardozo Start: 09-15-2024 ambulatory Efewongbe Oleghe OLS Fa cility:[facility] Start: 09-15-2024 Registered Referred Shayy Cardozo Start: 09-14-2024 ambulatory Efewongbe Oleghe OLS Fa cility:[facility] Start: 09-14-2024 Registered Referred Shayy Cardozo Start: 09-12-2024 ambulatory Efewongbe Oleghe OLS Fa cility:[facility] Start: 09-12-2024 Registered Referred Shayy Cardozo Start: 09-08-2024 End: 09-08-2024 [facility] Start: 09-08-2024 End: 09-08-[address] Stas Mora MD Work Phone: [facility] Start: 09-08-2024 Registered Referred Shayy Cardozo Start: 09-07-2024 End: 09-07-2024 [facility] Start: 09-07-2024 End: 09-07-[address] Stas Mora MD Work Phone: [facility] Start: 09-07-2024 Registered Referred Shayy Curtis MD [facility] Start: 09-06-2024 Non-patient / Non-visit Dr. Navid Dominguez MD -[facility] Work Phone: Start: 09-05-2024 Non-patient / Non-visit Dr. Navid Dominguez MD -[facility] Work Phone: Start: 09-04-2024 Non-patient / Non-visit Dr. Jia Wells MD -[facility] Work Phone: Start: 09-03-2024 Non-patient / Non-visit Dr. Jia Wells MD -[facility] Work Phone: Start: 09-02-2024 Non-patient / Non-visit Dr. Jia Wells MD -[facility] Work Phone: Start: 09-02-2024 ambulatory Stas Frankel y:[facility] Start: 09-02-2024 End: 09-06-2024 Evaluation and management of inpatient Dr. Navid Dominguez MD -[facility] Work Phone: Start: 09-01-2024 End: 09-01-2024 Telephone encounter [facility] Work Phone: [facility] Comment on above: Medication Problem ( Cost) Start: 09-01-2024 ambulatory Stas Frankel y:[facility] Start: 09-01-2024 Evaluation and management of inpatient Dr. Kathy Wells MD -[facility] Work Phone: Start: 09-01-2024 Non-patient / Non-visit Dr. Jia Wells MD -[facility] Work Phone: Start: 09-01-[address] Stas Mora MD Work Phone: [facility] Work Phone: Start: 08-31-2024 End: 08-31-2024 Telephone encounter Coretta Jalloh [facility] Ambulatory Telemanagement Comment on above: Anticoagulation Tele phone Fu (Home INR result ) Start: 08-31-2024 End: 08-31-2024 [facility]ulatory [facility] Start: 08-31-2024 End: 08-31-2024 Office outpatient visit 25 minutes Luciana Cisneros MD Work Phone: Geriatrics Comment on above: Moderate dementia wi thout behavioral disturbance, psychotic disturbance, mood disturbance, or anxiety, unspecified dementia type (HCC) (Primary Dx); Hallucinations; Screening for depression; Encounter for screening examination for other mental health and behavioral disorders Start: 08-31-2024 End: 08-31-2024 ambulatory LUCIANA CISNEROS Facility:[facility] Start: 08-03-2024 End: 08-03-2024 Telephone encounter Coretta Jalloh [facility] Ambulatory Telemanagement Comment on above: Anticoagulation Tele phone Fu (Lab INR result) Start: 08-03-2024 End: 08-03-2024 ambulatory STAS Maya [facility] Facility:[facility] Start: 07-28-2024 End: 07-28-2024 Office outpatient visit 15 minutes Stas Mora MD Work Phone: [facility] Comment on above: Bursitis of right el bow, unspecified bursa (Primary Dx) Start: 07-28-2024 End: 07-28-2024 [facility] Start: 07-06-2024 End: 07-06-2024 Telephone encounter Coretta Jalloh [facility] Ambulatory Telemanagement Comment on above: Anticoagulation Tele phone Fu (Lab INR result ) Start: 07-06-2024 End: 07-06-2024 ambulatory BARTOW Maya [facility] Facility:[facility] Start: 06-29-2024 End: 06-29-2024 Telephone encounter Coretta Jalloh [facility] Ambulatory Telemanagement Comment on above: Anticoagulation Tele phone Fu (Lab INR result ) Start: 06-29-2024 End: 06-29-2024 ambulatory STAS MORA Facility:[facility] Start: 06-01-2024 End: 06-01-2024 Office consultation new/estab patient 80 min Luciana Cisneros MD Work Phone: Geriatrics Comment on above: Mixed dementia (HCC) (Primary Dx); Vascular parkinsonism (HCC) Start: 06-01-2024 End: 06-01-2024 ambulatory LUCIANA CISNEROS Facility:[facility] Start: 06-01-2024 End: 08-01-2024 Follow-up encounter Luciana Cisneros MD Work Phone: [facility]iatric[facility] Start: 05-26-2024 End: 05-26-2024 Telephone encounter Luciana Cisneros MD Work Phone: [facility] Comment on above: Appointment (Resched ule for geriatric f/u) Start: 05-26-2024 End: 05-26-2024 ambulatory STAS MORA Facility:[facility] Start: 05-26-2024 End: 05-26-2024 Patient encounter procedure Stas Mora MD Work Phone: [facility] [place] Comment on above: Essential hypertensi on, benign (Primary Dx); Hyperlipidemia, unspecified hyperlipidemia type; Atherosclerosis 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, unspecified vessel or lesion type, unspecified whether [place] or transplanted heart; Paroxysmal atrial fibrillation (HCC); Edema of both lower legs; History of stroke with residual effects; Dementia, unspecified dementia severity, unspecified dementia type, unspecified whether behavioral, psychotic, or mood disturbance or anxiety (HCC) Start: 05-25-2024 End: 05-25-2024 Telephone encounter Paige Hickman [facility] Ambulatory Telemanagement Comment on above: Anticoagulation Tele phone Fu (Lab INR Result ) Start: 05-25-2024 End: 05-25-2024 ambulatory STAS MORA Facility:[facility] Start: 05-23-2024 ambulatory LUCIANA CISNEROS Facility :[id number] Start: 05-23-2024 End: 05-23-2024 Subsequent hospital visit by physician [facility] Work Phone: [facility] Comment on above: Cognitive impairment , mild, 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] Start: 04-28-2024 End: 04-29-2024 Telephone encounter Stas Mora MD Work Phone: [facility] [place] Comment on above: Results Start: 04-27-2024 End: 04-27-2024 Telephone encounter Coretta Jalloh [facility] Ambulatory Telemanagement Comment on above: Anticoagulation Tele phone Fu (Lab INR result ) Start: 04-27-2024 End: 04-27-2024 [facility] Facility:[facility] Start: 04-27-2024 End: 04-27-2024 Assmt & care planning pt w/cognitive impairment Luciana Cisneros MD Work Phone: Geriatrics Comment on above: Dementia, unspecifie d dementia severity, unspecified dementia type, unspecified whether behavioral, psychotic, or mood disturbance or anxiety (HCC) (Primary Dx); Cognitive impairment; Cognitive impairment, mild, so stated; Shuffling gait; Ambulatory dysfunction; Balance disorder Start: 04-27-2024 End: 04-27-2024 [facility] Facility:[facility] Start: 04-25-2024 End: 04-25-2024 Telephone encounter Stas Mora MD Work Phone: [facility] [place] Comment on above: memory issues Start: 04-13-2024 End: 04-13-2024 Telephone encounter Coretta Jalloh [facility] Ambulatory Tele[facility] Comment on above: Anticoagulation Tele phone Fu (Home INR result ) Start: 04-13-2024 End: 04-13-2024 ambulatory STAS MORA Facility:[facility] Start: 03-30-2024 End: 03-30-2024 Telephone encounter Coretta Jalloh [facility] Ambulatory Tele[facility] Comment on above: Anticoagulation Tele phone Fu (Lab INR result ) Start: 03-30-2024 End: 03-30-2024 ambulatory STAS MORA Facility:[facility] Start: 03-17-2024 End: 03-17-2024 Telephone encounter Josy Gandhi [facility] Comment on above: Anticoagulation Tele phone Fu (Lab INR result ) Start: 03-17-2024 End: 03-17-2024 ambulatory STAS MORA Facility:[facility] Start: 03-03-2024 End: 03-03-2024 Telephone encounter Elise Paredes [facility]ulatory Telemanagement Comment on above: Anticoagulation Tele phone Fu (Lab INR result) Start: 03-03-2024 End: 03-03-2024 ambulatory [facility] Facility:[facility] Start: 02-10-2024 End: 02-10-2024 [facility] Tele[facility] Comment on above: Anticoagulation Tele phone Fu (Lab INR result ) Start: 02-10-2024 End: 02-10-2024 ambulatory [facility] Facility:[facility] Start: 01-20-2024 End: 01-20-2024 Telephone encounter [facility] Ambulatory Telemanagement Comment on above: Anticoagulation Tele phone Fu (Lab INR results ) Start: 01-20-2024 End: 01-20-2024 ambulatory [facility] Facility:[facility] Start: 01-04-2024 End: 01-04-2024 Telephone encounter Stsa Mora MD Work Phone: [facility] Comment on above: Medication Request Start: 12-24-2023 End: 12-24-2023 Telephone encounter Elise Paredes [facility] Ambulatory Tele[facility] Comment on above: Anticoagulation Tele phone Fu (Lab INR) Start: 12-10-2023 End: 12-10-2023 Telephone encounter Elise Paredes [facility] Ambulatory [facility] Comment on above: Anticoagulation Tele phone Fu (Lab INR) Start: 11-26-2023 End: 11-26-2023 Telephone encounter Elise Paredes [facility] Ambulatory Tele[facility] Comment on above: Anticoagulation Tele phone Fu (Lab INR) Start: 11-26-2023 End: 11-26-2023 Patient encounter procedure Stas Mora MD Work Phone: [facility] Comment on above: Essential hypertensi on, benign (Primary Dx); Hyperlipidemia, unspecified hyperlipidemia type; Edema of both lower legs; Paroxysmal atrial fibrillation (HCC); History of stroke with residual effects; 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 [place] Comment on above: Refill Request Start: 10-14-2023 Telephone encounter Coretta Jalloh [facility] Ambulatory Telemanagement Comment on above: Anticoagulation Tele phone Fu (Home INR results ) Start: 09-16-2023 Telephone encounter Colleen Sommer [facility] Ambulatory Telemanagement Comment on above: Anticoagulation Tele phone Fu Start: 09-15-2023 End: 09-15-2023 Patient encounter procedure Stas Mora MD Work Phone: [facility] Comment on above: Edema of both lower legs (Primary Dx) Start: 09-14-2023 End: 09-14-2023 ambulatory Nurse Intm/Famp Triage [facility] Work Phone: Nurse Phone Triage Comment on above: Leg swelling Start: 09-02-2023 Telephone encounter Coretta Jalloh [facility] Ambulatory Telemanagement Comment on above: Anticoagulation Tele phone Fu (Lab INR results) Start: 08-26-2023 Telephone encounter [facility] Comment on above: Anticoagulation Tele phone Fu (Lab INR results ) Start: 08-19-2023 Telephone encounter Coretta Jalloh [facility] Ambulatory Telemanagement Comment on above: Anticoagulation Tele phone Fu (Lab INR) Start: 08-14-2023 End: 08-14-2023 Patient encounter procedure Stas Mora MD Work Phone: [facility] Comment on above: Moderate vascular de mentia without behavioral disturbance, psychotic disturbance, mood disturbance, or anxiety (HCC) (Primary Dx); Essential hypertension, benign; Paroxysmal atrial fibrillation (HCC) Start: 08-12-2023 Telephone encounter [facility] Comment on above: Anticoagulation Tele phone Fu (Home INR results ) Start: 08-06-2023 ambulatory PAYTON SHAMAR DO Facil ity:A Start: 08-05-2023 Telephone encounter Coretta Jalloh [facility] Ambulatory Telemanagement Comment on above: Anticoagulation Tele phone Fu (Home INR results ) Start: 07-29-2023 Telephone encounter Elena Lopez [facility] Comment on above: Anticoagulation Foll ow Up Start: 07-22-2023 Telephone encounter [facility] Tele[facility] Comment on above: Anticoagulation Tele phone Fu (Lab INR results ) Start: 07-16-2023 Refill Elvis RASHID RN.METAL LEAF LAYER Work Phone: [facility] [place] Comment on above: Refill Request Start: 07-15-2023 [...] Stas miranda MD Work Phone: [facility] [place] Comment on above: Anticoagulation Start: 06-08-2023 Telephone encounter Jenna Armenta neof 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[employer] Work Phone: [facility] [place] Comment on above: Erroneous encounter- disregard Anticoagulation Start: 06-05-2023 Telephone encounter Jenna singhof 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[employer] Work Phone: [facility] [place] Comment on above: Results (Labs, Criti cleopatra ) Start: 06-04-2023 ambulatory Hortencia Winston RN NURSE O N CALL Comment on above: Results, Lab High Protime and INR Start: 06-04-2023 E-mail encounter babak m caregiver Jasmin Bell MD Work Phone: [facility] [place] Start: 06-04-2023 Telephone encounter Jenna Armenta nhof 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[employer] Work Phone: [facility] [place] Comment on above: Results; Orders (Lab s ) Start: 06-03-2023 Telephone encounter [facility] Tele[facility] Comment on above: Anticoagulation Tele phone Fu (Lab INR results ) Start: 06-01-2023 End: 06-01-2023 Patient encounter procedure Stas Mora MD Work Phone: [facility] [place] Comment on above: Essential hypertensi on, benign (Primary Dx); Paroxysmal atrial fibrillation (HCC); Atherosclerosis 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, unspecified vessel or lesion type, unspecified whether tazlina or transplanted heart; Hyperlipidemia, unspecified hyperlipidemia type; [...] results) Start: 05-13-2023 Telephone encounter Senia Phillips [facility] Ambulatory Telemanagement Comment on above: Anticoagulation Tele phone Fu (INR Lab Result) Start: 05-06-2023 Telephone encounter Corettaubaldo [facility] Telemanagement Comment on above: Anticoagulation Tele phone Fu (Lab INR results ) Start: 04-29-2023 Telephone encounter [facility] Telemanagement Comment on above: Anticoagulation Tele phone Fu (Home INR results ) Start: 02-20-2023 Telephone encounter Elise Paredes [facility] Comment on above: Anticoagulation Tele phone Fu (Lab INR) Start: 02-17-2023 Telephone encounter Stas miranda MD Work Phone: [facility] [place] Comment on above: Results Start: 02-17-2023 End: 02-17-2023 Subsequent hospital visit by physician Mri Radio [facility] (I-Stat/1.5t) Work Phone: Radiology Comment on above: Cerebral infarction, unspecified mechanism (HCC) [I63.9] Start: 02-16-2023 End: 02-16-2023 Patient encounter procedure Stas Mora MD Work Phone: [facility] Comment on above: Cerebral infarction, unspecified mechanism (HCC) (Primary Dx); Generalized weakness; Speech disturbance, unspecified type; Hyperlipidemia, unspecified hyperlipidemia type; Essential hypertension, benign; Paroxysmal atrial fibrillation (HCC) Start: 02-13-2023 Telephone encounter Elise Paredes [facility]ulatory Telemanagement Comment on above: Anticoagulation Tele phone Fu (Lab INR) Start: 02-10-2023 End: 02-10-2023 Emergency department patient visit [facility] Work Phone: Start: 02-06-2023 Telephone encounter Senia Phillips [facility] P harm[facility] Ambulatory Telemanagement Comment on above: Anticoagulation Tele phone Fu (INR Lab Result) Start: 01-19-2023 Telephone encounter Paige Hickman [facility] Ambulatory Telemanagement Comment on above: Anticoagulation Tele phone Fu Start: 01-16-2023 Orders Only Stas newman MD Work Phone: [facility] Comment on above: director 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 current us e of anticoagulant (Primary Dx); [...] Result) Start: 11-21-2022 Telephone encounter Jeimy Duong [facility] Comment on above: Anticoagulation Tele phone Fu (Lab INR result) Start: 11-17-2022 End: 11-17-2022 Emergency department patient visit NONE PHYSICIAN Facility:B Start: 11-17-2022 End: 11-17-2022 Emergency department patient visit [facility] AMELIAKATHLEEN HENRIQUEZ [facility] Start: 11-07-2022 Telephone encounter Senia Cross [...] Result) Start: 10-17-2022 Telephone encounter Yomi Wills [facility] Ambulatory Telemanagement Comment on above: Anticoagulation Tele phone Fu (Lab INR Result/) urgent PT INR result Start: 09-26-2022 Telephone encounter Jeimy Duong [facility] Comment on above: Anticoagulation Tele phone Fu (Lab INR result) Start: 09-12-2022 Telephone encounter Jeimy Duong [facility] Comment on above: Anticoagulation Tele phone Fu (Lab INR result) Start: 08-26-2022 End: 08-26-2022 Patient encounter procedure Stas Mora MD Work Phone: [facility] Comment on above: Encounter for Medica re [...] Result) Start: 07-04-2022 Telephone encounter Lety Gandara [facility] Comment on above: Anticoagulation Tele phone Fu (Lab INR result ) Start: 06-23-2022 Refill Elvis RASHID RN.[employer] LEAF L[employer]ER Work Phone: [facility] Comment on above: Refill Request Start: 06-20-2022 Telephone encounter Senia Cross [facility]Ph [facility] Ambulatory Telemanagement Comment on above: Anticoagulation Tele phone Fu (INR Lab Result) Start: 06-06-2022 Telephone encounter Senia Cross [facility] P [facility]acy Ambulatory Telemanagement Comment on above: Anticoagulation Tele phone Fu (INR Lab Result) Start: 05-30-2022 Telephone encounter Stas miranda MD Work Phone: [facility] [place] Comment on above: Opened In Error Start: 05-22-2022 Telephone encounter Jenna Armenta nhof 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[employer] Work Phone: [facility] [place] Comment on above: Results (X-ray hip) Start: 05-21-2022 End: 05-21-2022 Subsequent hospital visit by physician Xr [facility] [place] Work Phone: Radiology Comment on above: Left hip pain [M25.5 52] Start: 05-21-2022 ambulatory Fani Grace RN NURSE O N CALL Comment on above: Fall Fall; Hip Pain Start: 05-19-2022 Telephone encounter Stas miranda MD Work Phone: [facility] [place] Comment on above: Anticoagulation Start: 05-16-2022 [...] Result) Start: 04-04-2022 Telephone encounter Elise Paredes [facility] Comment on above: Anticoagulation Tele phone Fu (Lab INR) Start: 03-31-2022 Telephone encounter Stas miranda MD Work Phone: [facility] [place] Comment on above: Release Of Medical R ecords ([place] PCP) Start: 03-21-2022 Telephone encounter Carmelina Cruz [facility] Comment on above: Anticoagulation Tele phone Fu Start: 02-21-2022 Telephone encounter Kristian Ferguson MD Work Phone: [facility] [place] Comment on above: Anticoagulation Start: 02-10-2022 Telephone encounter Stas miranda MD Work Phone: [facility] [place] Comment on above: Opened In Error Start: 01-27-2022 Telephone encounter Paige [facility] Comment on above: Anticoagulation Tele phone Fu (Lab INR Result) Start: 01-20-2022 Telephone encounter Paige [facility] Comment on above: Anticoagulation Tele phone Fu (Lab INR Result) Start: 01-17-2022 Telephone encounter Stas miranda MD Work Phone: [facility] Comment on above: Anticoagulation; Cri tical Results (INR) Start: 01-13-2022 Refill Stas newman MD Work Phone: [facility] Comment on above: Refill Request; Refi ll Request Start: 01-03-2022 Telephone encounter Senia Alan [facility] Tele[facility] Comment on above: Anticoagulation Tele phone Fu (INR Home Test Result) Start: 01-02-2022 Telephone encounter Stas miranda MD Work Phone: [facility] Comment on above: Results Start: 12-26-2021 End: 12-26-2021 Patient encounter procedure Stas Mora MD Work Phone: [facility] Comment on above: Hospital discharge f ollow-up (Primary Dx); Encounter for immunization; TIA (transient ischemic attack); Thyroid nodule; Essential hypertension, benign; Paroxysmal atrial fibrillation (HCC); Atherosclerosis 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, unspecified vessel or lesion type, unspecified whether tazlina or transplanted heart Start: 12-22-2021 Non-patient / Non-visit Dr. Maria E Mora Work Phone: [facility] Start: 12-21-2021 Non-patient / Non-visit Dr. Maria E Mora Work Phone: [facility] Start: 12-21-2021 End: 12-22-2021 Evaluation and management of inpatient [facility] Start: 12-21-2021 End: 12-22-[address] Stas Mora Work Phone: [facility] Work Phone: Start: 12-20-2021 Telephone encounter Stas miranda MD Work Phone: [facility] [place] Comment on above: Opened In Error Anticoagulation Tele phone Fu (INR Lab Result) Start: 12-06-2021 Telephone encounter Senia Phillips [facility] Ambulatory Telemanagement Comment on above: Anticoagulation Tele phone Fu (INR Lab Result) Start: 11-22-2021 Telephone encounter Janice Sal [facility] Ambulatory Telemanagement Comment on above: Anticoagulation Tele phone Fu (INR) Start: 11-08-2021 Telephone encounter Stas miranda MD Work Phone: [facility] [place] Comment on above: Opened In Error Anticoagulation Tele phone Fu (INR Lab Result) Start: 10-25-2021 Telephone encounter Janice Sal [facility] Ambulatory Telemanagement Comment on above: Anticoagulation Tele phone Fu (lab INR ) Start: 09-27-2021 Telephone encounter Yomi Wills [facility] Ambulatory Telemanagement Comment on above: Anticoagulation Tele phone Fu (Lab INR Result) Start: 09-13-2021 Orders Only Stas newman MD Work Phone: [facility] [place] Comment on above: senior care current us e of anticoagulant (Primary Dx); Encounter for monitoring Coumadin therapy Anticoagulation Tele phone Fu (INR Lab Result) Start: 09-05-2021 End: 09-05-2021 Patient encounter procedure Stas Mora MD Work Phone: [facility] [place] Comment on above: Encounter for Medica re annual wellness exam (Primary Dx); Paroxysmal atrial fibrillation (HCC); Essential hypertension, benign Start: 08-30-2021 Telephone encounter Jenna Armenta nhof 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[employer] Work Phone: [facility] [place] Comment on above: Orders (INR ) Anticoagulation Tele phone Fu (INR Lab Result) Start: 08-16-2021 Orders Only Stas newman MD Work Phone: [facility] [place] Comment on above: Anticoagulation Start: 08-02-2021 Telephone encounter Senia Alan [facility] Ambulatory Telemanagement Comment on above: Anticoagulation Tele phone Fu (INR Lab Result) Start: 07-16-2021 Telephone encounter Stas miranda MD Work Phone: [facility] Comment on above: Results Start: 07-13-2021 Refill Elvis RASHID RN.[employer] LAYER Work Phone: [facility] Comment on above: Refill Request Start: 07-08-2021 End: 07-08-2021 Patient encounter procedure Stas Mora MD Work Phone: [facility] Comment on above: Essential hypertensi on, benign (Primary Dx); Atherosclerosis 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, unspecified vessel or lesion type, unspecified whether tazlina or transplanted heart; Paroxysmal atrial fibrillation (HCC); Primary osteoarthritis of both knees Start: 07-03-2021 Telephone encounter Stas miranda MD Work Phone: [facility] Comment on above: Anticoagulation Tele phone Fu (Lab INR result) Start: 06-12-2021 Telephone encounter Stas miranda MD Work Phone: [facility] Comment on above: Anticoagulation (Lab INR result) Start: 03-12-2020 End: 03-12-2020 Subsequent hospital visit by physician Xr [facility] [place] Work Phone: Radiology Comment on above: Acute right-sided lo w back pain, unspecified whether sciatica present [M54.5] Start: 02-02-2018 Ambulatory DARRELL OLIVEIRA Facility :[facility] Start: 06-02-2017 End: 06-02-2017 [facility] DARRELL Radha [facility] Procedures Date Procedure Procedure Detail [...] Adult depression scr eening assessment Coretta Jalloh [facility] Start: 02-17-2023 Mri brain brain stem w/o contrast material Stas Mora MD Work Phone: Start: 02-10-2023 Plain chest X-ray Start: 02-10-2023 SARS-CoV-2 & FLU Ant igen (Rapid) Start: 05-21-2022 Radex hip unilateral with pelvis 2-3 views Jenna Fitzpatrick 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[employer] Work Phone: Start: 05-19-2022 PROTHROMBIN TIME/PT [facility] [...] Detail Author Start: 02-27-2031 Urine microalbumin profile [facility] Start: 05-26-2027 Diabetes Screening Diabetes Screenwy g [facility] Start: 06-02-2026 [facility] Start: 08-15-2025 DIABETES SCREEN DIABETES SCREEN [facility] Start: 08-15-2025 Diabetes Screening Diabetes Screenwy g [facility] Start: 05-25-2025 Hepatitis B surface antibody level LDL Cholesterol [facility] Start: 03-30-2025 End: 03-30-2025 Patient encounter procedure 03/30/2025 11:00 AM EST Office Visit Geriatrics [address] [place], [place] [address] Luciana Cisneros MD [address] [place], [place] [id number] follow up 6 months Geriatrics Comment on above: follow up 6 months Start: 02-21-2025 DIABETES SCREEN DIABETES SCREEN [facility] Start: 12-06-2024 DIABETES SCREEN DIABETES SCREEN [facility] Start: 12-05-2024 End: 12-05-2024 Patient encounter procedure 12/05/2024 12:40 PM EDT Office Visit [facility] [address] [place], [place] [phone] Stas Mora MD [address] [place], [place] [phone] reschedule from 12/01 [facility] Comment on above: reschedule from 12/01 Start: 12-01-2024 End: 12-01-2024 Patient encounter procedure 12/01/2024 9:40 AM EDT Office Visit [facility] [address] [place], [place] [address] Stas Mora MD [address] [place], [place] [phone] 6 mo f/u [facility] Comment on above: 6 mo f/u Start: 11-26-2024 End: 02-25-2025 CBC W Auto Differential panel - Blood COMPLETE BLOOD COUNT AND DIFFERENTIAL Lab Routine Essential hypertension, benign Expected: 11/26/2024 (Approximate), Expires: 02/25/2025 [facility] Comment on above: Expected: 11/26/2024 (Approximate), Expires: 02/25/2025 Start: 11-26-2024 End: 02-25-2025 Comprehensive metabolic 2000 panel - Serum or Plasma COMPREHENSIVE METABOLIC PANEL Lab Routine Essential hypertension, benign Hyperlipidemia, unspecified hyperlipidemia type Expected: 11/26/2024 (Approximate), Expires: 02/25/2025 [facility] Work Phone: Comment on above: Expected: 11/26/2024 (Approximate), Expires: 02/25/2025 Start: 11-26-2024 End: 02-25-2025 Lipid 1996 panel - Serum or Plasma LIPID PANEL BASIC Lab Routine Essential hypertension, benign Hyperlipidemia, unspecified hyperlipidemia type Expected: 11/26/2024 (Approximate), Expires: 02/25/2025 [facility] Comment on above: Expected: 11/26/2024 (Approximate), Expires: 02/25/2025 Start: 11-25-2024 RSV Vaccine (1 - 1-d ose 60+ series) RSV Vaccine (1 - 1-dose 60+ series) [facility] Comment on above: Postponed from 08/12 (Declined at this time) Start: 11-25-2024 RSV Vaccine (1 - 1-d ose 75+ series) RSV Vaccine (1 - 1-dose 75+ series) [facility] Comment on above: Postponed from 08/12 (Declined at this time) Start: 11-23-2024 [facility] Start: 11-21-2024 Influenza vaccination Influenza Vacc ine (#1) [facility] Start: 09-06-2024 Patient discharge [facility] Start: 09-02-2024 Admission procedure [facility] Start: 09-01-2024 End: 09-02-2024 [facility] Start: 09-01-2024 Blood culture Blood Culture [facility] Start: 09-01-2024 Application of intermittent pneumatic compression device [facility] Start: 09-01-2024 Fall prevention [facility] Start: 09-01-2024 Oxygen therapy [facility] Start: 09-01-2024 Provision of activit y privileges [facility] Start: 09-01-2024 Assessment of risk o f venous thromboembolism [facility] Start: 09-01-2024 Insertion of cathete r into peripheral vein [facility] Start: 09-01-2024 Providing care accor ding to standard [facility] Start: 09-01-2024 Referral to occupati onal therapist [facility] Start: 09-01-2024 Referral to service [facility] Start: 09-01-2024 [facility] Start: 09-01-2024 Following clinical pathway protocol [facility] Start: 09-01-2024 Admission procedure [facility] Start: 09-01-2024 Hospital admission, emergency, from emergency room, medical nature [facility] Start: 08-31-2024 End: 08-31-2024 Patient encounter procedure 08/31/2024 11:00 AM EDT Office Visit Geriatrics [address] [place] [address] Luciana Cisneros MD [address] [place] [address] 3 month f/u Geriatric[facility] Comment on above: 3 month f/u Start: 2024 Anxiety Screening Anxiety Screening [facility] Start: 2024 Depression Screening Depression Scre ening [facility] Start: 07-08-2024 DIABETES SCREEN DIABETES SCREEN [facility] Start: 06-02-2024 Hepatitis B surface antibody level LDL Cholesterol [facility] Start: 06-01-2024 End: 06-01-2024 Patient encounter procedure 06/01/2024 3:00 PM EDT Office Visit Geriatrics [address] [place] [address] Luciana Cisneros MD [address] [facility] [address] Follow up visit for MRI [facility] Comment on above: Follow up visit for MRI Start: 06-01-2024 Covid-19 Vaccine () Covid-19 Vaccine () [facility] Start: 05-30-2024 End: 05-30-2024 Patient encounter procedure 05/30/2024 11:20 AM EDT Office Visit [facility] [place] [address] [place] [address] Luciana Cisneros MD [address] [place] [address] Follow up visit for MRI [facility] [place] Comment on above: Follow up visit for MRI Start: 05-26-2024 End: 05-26-2024 Patient encounter procedure 05/26/2024 9:20 AM EST Office Visit [facility] [place] [address] [place] [address] Stas Mora MD [address] [place] [address] 6 mo f/u [facility] [place] Comment on above: 6 mo f/u Start: 05-25-2024 End: 08-24-2024 CBC W Auto Differential panel - Blood COMPLETE BLOOD COUNT AND DIFFERENTIAL Lab Routine Abnormal CBC Expected: 05/25/2024 (Approximate), Expires: 08/24/2024 [facility] Comment on above: Expected: 05/25/2024 (Approximate), Expires: 08/24/2024 Start: 05-25-2024 End: 08-24-2024 Comprehensive metabolic 2000 panel - Serum or Plasma COMPREHENSIVE METABOLIC PANEL Lab Routine Essential hypertension, benign Hyperlipidemia, unspecified hyperlipidemia type Expected: 05/25/2024 (Approximate), Expires: 08/24/2024 [facility] Work Phone: Comment on above: Expected: 05/25/2024 (Approximate), Expires: 08/24/2024 Start: 05-25-2024 End: 08-24-2024 Lipid 1996 panel - Serum or Plasma LIPID PANEL BASIC Lab Routine Essential hypertension, benign Hyperlipidemia, unspecified hyperlipidemia type Expected: 05/25/2024 (Approximate), Expires: 08/24/2024 [facility] Comment on above: Expected: 05/25/2024 (Approximate), Expires: 08/24/2024 Start: 05-25-2024 End: 05-25-2024 ambulatory 05/25/2024 8:30 AM EST Results Only [place] [facility] Draw Station [address] [place] [address] 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] [facility] Comment on above: Cognitive impairment , mild, 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] Start: 04-29-2024 End: 04-29-2024 Patient encounter procedure 04/29/2024 3:40 PM EST Office Visit [facility] [place] [address] [place] [address] Stas Mora MD [address] [place] [address] memory issues,See TE [facility] [place] Comment on above: memory issues,See TE Start: 04-27-2024 End: 04-27-2024 Patient encounter procedure 04/27/2024 9:30 AM EST Office Visit Geriatrics [address] [place] [address] Luciana Cisneros MD [address] [place] [address] Dementia, unspecified dementia severity, unspecified dementia type, unspecified whether behavioral, psychotic, or mood disturbance or anxiety (HCC) [F03.90] [facility] Comment on above: Dementia, unspecifie d dementia severity, unspecified dementia type, unspecified whether behavioral, psychotic, or mood disturbance or anxiety (HCC) [F03.90] Start: 03-23-2024 Advance Directive Discussion Advance Directive Discussion [facility] Start: 03-23-2024 Medicare Advantage A nnual Wellness Visit Medicare Advantage Annual Wellness Visit [facility] Start: 03-13-2024 DIABETES SCREEN DIABETES SCREEN [facility] Start: 11-26-2023 End: 11-26-2023 Patient encounter procedure [facility] [place] Comment on above: 6 month follow up 6 month follow up, jessica bashir, on aricept x 3 months Start: 11-22-2023 Covid-19 Vaccine ( season) Covid-19 Vaccine () [facility] Start: 11-22-2023 Influenza vaccination Influenza Vacc ine (#1) [facility] Start: 09-15-2023 End: 09-15-2023 Patient encounter procedure 09/15/2023 8:40 AM EDT Office Visit [facility] [place] [address] [place] [address] Stas Mora MD [address] [place], [place] [id number] leg swelling- both legs--See triage 09/14/2023. [facility] [place] Comment on above: leg swelling- both l egs--See triage 09/14/2023. Start: 08-16-2023 Hepatitis B surface antibody level LDL CHOLESTEROL [facility] Start: 08-14-2023 End: 08-14-2023 Patient encounter procedure 08/14/2023 10:00 AM EDT Office Visit [facility] [place] [address] [place] [address] Stas Mora MD [address] [place], [place] [phone] Memory Issues [facility] [place] Comment on above: Memory Issues Start: 06-04-2023 End: 09-03-2023 Ferritin [Mass/volume] in Serum or Plasma [facility] Work Phone: Comment on above: Expected: 06/04/2023 , Expires: 09/03/2023 Start: 06-04-2023 End: 09-03-2023 Iron and Iron binding capacity panel - Serum or Plasma [facility] Work Phone: Comment on above: Expected: 06/04/2023 , Expires: 09/03/2023 Start: 06-01-2023 End: 08-31-2023 CBC panel - Blood by Automated count CBC Lab Routine Paroxysmal atrial fibrillation (HCC) Essential hypertension, benign Expected: 06/01/2023 (Approximate), Expires: 08/31/2023 [facility] Work Phone: Comment on above: Expected: 06/01/2023 (Approximate), Expires: 08/31/2023 Start: 06-01-2023 End: 08-31-2023 Comprehensive metabolic 2000 panel - Serum or Plasma COMP METABOLIC PANEL Lab Routine Paroxysmal atrial fibrillation (HCC) Essential hypertension, benign Hyperlipidemia, unspecified hyperlipidemia type Expected: 06/01/2023 (Approximate), Expires: 08/31/2023 [facility] Work Phone: Comment on above: Expected: 06/01/2023 (Approximate), Expires: 08/31/2023 Start: 06-01-2023 End: 08-31-2023 Lipid 1996 panel - Serum or Plasma LIPID PANEL BASIC Lab Routine Paroxysmal atrial fibrillation (HCC) Essential hypertension, benign Hyperlipidemia, unspecified hyperlipidemia type Expected: 06/01/2023 (Approximate), Expires: 08/31/2023 [facility] Work Phone: Comment on above: Expected: 06/01/2023 (Approximate), Expires: 08/31/2023 Start: 05-13-2023 Covid-19 Vaccine () Covid-19 Vaccine () [facility] Start: 03-23-2023 Advance Directive Discussion Advance Directive Discussion [facility] Start: 03-23-2023 Behavioral Health Screening Behavioral Health Screening [facility] Start: 03-23-2023 Depression Assessment Depression Ass essment [facility] Start: 02-21-2023 Hepatitis B surface antibody level LDL CHOLESTEROL [facility] Start: 02-10-2023 [facility] Start: 12-06-2022 Hepatitis B surface antibody level LDL CHOLESTEROL [facility] Start: 11-21-2022 Covid-19 Vaccine () Covid-19 Vaccine () [facility] Start: 11-21-2022 Influenza vaccination C [facility] Start: 09-05-2022 PNEUMOCOCCAL: 65+ (2 - PCV) PNEUMOCOCCAL: 65+ (2 - PCV) [facility] Comment on above: Postponed from 02/21 (Declined at this time) Start: 07-08-2022 Hepatitis B surface antibody level LDL CHOLESTEROL [facility] Start: 04-26-2022 COVID-19 VACCINE (6 - Pfizer series) COVID-19 VACCINE (6 - Pfizer series) [facility] Start: 03-23-2022 ADVANCE DIRECTIVE DISCUSSION ADVANCE DIRECTIVE DISCUSSION [facility] Start: 03-23-2022 DEPRESSION ASSESSMENT DEPRESSION ASS ESSMENT [facility] Start: 03-13-2022 Hepatitis B surface antibody level LDL CHOLESTEROL [facility] Start: 03-10-2022 End: 05-10-2022 CBC panel - Blood by Automated count CBC Lab Routine TIA (transient ischemic attack) Essential hypertension, benign Atherosclerosis 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, unspecified vessel or lesion type, unspecified whether [place] or transplanted heart Expected: 03/10/2022 (Approximate), Expires: 05/10/2022 [facility] Work Phone: Comment on above: Expected: 03/10/2022 (Approximate), Expires: 05/10/2022 Start: 03-10-2022 End: 05-10-2022 Comprehensive metabolic 2000 panel - Serum or Plasma COMP METABOLIC PANEL Lab Routine TIA (transient ischemic attack) Essential hypertension, benign Atherosclerosis 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, unspecified vessel or lesion type, unspecified whether [place] or transplanted heart Expected: 03/10/2022 (Approximate), Expires: 05/10/2022 [facility] Work Phone: Comment on above: Expected: 03/10/2022 (Approximate), Expires: 05/10/2022 Start: 03-10-2022 End: 05-10-2022 Lipid 1996 panel - Serum or Plasma LIPID PANEL BASIC Lab Routine TIA (transient ischemic attack) Essential hypertension, benign Atherosclerosis 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, unspecified vessel or lesion type, unspecified whether [place] or transplanted heart Expected: 03/10/2022 (Approximate), Expires: 05/10/2022 [facility] Work Phone: Comment on above: Expected: 03/10/2022 (Approximate), Expires: 05/10/2022 Start: 01-03-2022 End: 03-05-2022 Comprehensive metabolic 2000 panel - Serum or Plasma COMP METABOLIC PANEL Lab Routine Atherosclerosis 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, unspecified vessel or lesion type, unspecified whether [place] or transplanted heart Essential hypertension, benign Expected: 01/03/2022 (Approximate), Expires: 03/05/2022 [facility] Work Phone: Comment on above: Expected: 01/03/2022 (Approximate), Expires: 03/05/2022 Start: 01-03-2022 End: 03-05-2022 LIPID PANEL BASIC LIPID PANEL BASIC Lab Routine Atherosclerosis 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, unspecified vessel or lesion type, unspecified whether [place] or transplanted heart Essential hypertension, benign Expected: 01/03/2022 (Approximate), Expires: 03/05/2022 [facility] Work Phone: Comment on above: Expected: 01/03/2022 (Approximate), Expires: 03/05/2022 Start: 12-24-2021 Prothrombin time [facility] Work Phone: Start: 12-23-2021 Prothrombin time [facility] Work Phone: Start: 12-22-2021 Patient discharge [facility] Work Phone: Start: 12-21-2021 Assessment of risk o f venous thromboembolism [facility] Work Phone: Start: 12-21-2021 Cardiac monitoring [facility] Work Phone: Start: 12-21-2021 Catheterization of vein [facility] Work Phone: Start: 12-21-2021 Continuous pulse oximetry [facility] Work Phone: Start: 12-21-2021 Elevation of head of bed [facility] Work Phone: Start: 12-21-2021 Exercises [facility] Work Phone: Start: 12-21-[address] anned interventions [facility] Work Phone: Start: 12-21-2021 Insertion of cathete r into peripheral vein [facility] Work Phone: Start: 12-21-2021 Measuring intake and output [facility] Work Phone: Start: 12-21-2021 Notification of physician [facility] Work Phone: Start: 12-21-2021 Oxygen therapy [facility] Work Phone: Start: 12-21-2021 Providing care accor ding to standard [facility] Work Phone: Start: 12-21-2021 Provision of activit y privileges [facility] Work Phone: Start: 12-21-2021 Referral to occupati onal therapist [facility] Work Phone: Start: 12-21-2021 Referral to service [facility] Work Phone: Start: 12-21-2021 Tobacco use cessatio n education [facility] Work Phone: Start: 12-21-2021 US scan of thyroid Thyroid [facility] Work Phone: Start: 12-21-2021 [facility] Work Phone: Start: 12-21-2021 End: 12-21-2021 Following clinical pathway protocol [facility] Work Phone: Start: 12-21-2021 Verification routine [facility] Work Phone: Start: 12-21-2021 Admission procedure [facility] Work Phone: Start: 12-21-2021 CT of head without contrast STROKE Brain/Head without Cont [facility] Work Phone: Start: 12-21-2021 CT Unspecified body region WO contrast [facility] Work Phone: Start: 12-21-2021 Oxygen therapy [facility] Work Phone: Start: 12-21-2021 End: 12-22-2021 [facility] Work Phone: Start: 11-21-2021 Influenza vaccination INFLUENZA (#1) [facility] Start: 09-24-2021 COVID-19 VACCINE (5 - Booster for Pfizer series) COVID-19 VACCINE (5 - Booster for Pfizer series) [facility] Start: 08-30-2021 End: 10-30-2021 PT panel - Platelet poor plasma by Coagulation assay [facility] Work Phone: Comment on above: Expected: 08/30/2021 , Expires: 10/30/2021 Start: 07-08-2021 End: 09-07-2021 Comprehensive metabolic 2000 panel - Serum or Plasma [facility] Work Phone: Comment on above: Expected: 07/08/2021 (Approximate), Expires: 09/07/2021 Start: 07-08-2021 End: 09-07-2021 LIPID PANEL BASIC [facility] Work Phone: Comment on above: Expected: 07/08/2021 (Approximate), Expires: 09/07/2021 Start: 04-27-2021 COVID-19 VACCINE (4 - Booster for Pfizer series) COVID-19 VACCINE (4 - Booster for Pfizer series) [facility] Start: 03-23-2021 ADVANCE DIRECTIVE DISCUSSION ADVANCE DIRECTIVE DISCUSSION [facility] Start: 03-23-2021 DEPRESSION ASSESSMENT DEPRESSION ASS ESSMENT [facility] Start: 02-21-2009 Pneumococcal Vaccine : 65+ (2 - PCV) Pneumococcal Vaccine: 65+ (2 - PCV) [facility] Start: 02-21-2009 PNEUMOCOCCAL: 65+ (2 - PCV) PNEUMOCOCCAL: 65+ (2 - PCV) [facility] Start: 02-23-2008 Urine microalbumin profile DTAP,TDAP,TD (1 - Tdap) [facility] Start: 1995 RSV Vaccine (1 - 1-d ose 60+ series) RSV Vaccine (1 - 1-dose 60+ series) [facility] Start: 08-12-1985 SHINGRIX VACCINE (1 of 2) VALDES GRIX VACCINE (1 of 2) [facility] Anion gap in Serum o r Plasma [facility] BUN/Creatinine ratio [facility] Calcium [Mass/volume ] in Serum or Plasma [facility] Carbon dioxide, tota l [Moles/volume] in Central venous blood [facility] Creatinine [Mass/vol ume] in Serum or Plasma [facility] Glucose [Mass/volume ] in Serum or Plasma [facility] Hemoglobin.gastroint estin al.lower [Presence] in Stool by Immunoassay FECAL OCCULT BLOOD TEST Lab Routine Abnormal CBC 06/04/2023 2:13 PM EDT [facility] Work Phone: INR in Blood by Coagulation assay [facility] Measurement of renal function [facility] End: 05-27-2025 MR Brain WO contrast MRI BRAIN W QUANT WO IVCON Radiology Routine Cognitive impairment, mild, so stated 1 Occurrences starting 04/27/2024 until 05/27/2025 [facility] Work Phone: Comment on above: 1 Occurrences starti ng 04/27/2024 until 05/27/2025 End: 05-27-2025 MR Unspecified body region 3D post processing MRI 3D BRAIN QUANT Radiology Routine Cognitive impairment, mild, so stated 1 Occurrences starting 04/27/2024 until 05/27/2025 [facility] Comment on above: 1 Occurrences starti ng 04/27/2024 until 05/27/2025 End: 03-17-2024 Mri brain brain stem w/o contrast material MRI BRAIN WO IVCON Radiology STAT Cerebral infarction, unspecified mechanism (HCC) 1 Occurrences starting 02/16/2023 until 03/17/2024 [facility] Work Phone: Comment on above: 1 Occurrences starti ng 02/16/2023 until 03/17/2024 Mri brain brain stem w/o contrast material MRI BRAIN WO IVCON Radiology STAT Cerebral infarction, unspecified mechanism (HCC) 02/17/2023 8:13 AM EST [facility] Work Phone: Patient Education ED Weakness (U ncertain Cause) [facility] Work Phone: Patient referral [facility] Work Phone: Potassium measurement [facility] Prothrombin time [facility] End: 09-13-2022 PT panel - Platelet poor plasma by Coagulation assay PROTHROMBIN TIME/PT Lab Routine senior care current use of anticoagulant Encounter for monitoring Coumadin therapy Once per week for 99 Occurrences starting 09/13/2021 until 09/13/2022 [facility] Work Phone: Comment on above: Once per week for 99 Occurrences starting 09/13/2021 until 09/13/2022 PT panel - Platelet poor plasma by Coagulation assay PROTHROMBIN TIME/PT Lab Routine senior care current use of anticoagulant Encounter for monitoring Coumadin therapy 09/13/2021 8:42 AM EDT [facility] Work Phone: End: 01-16-2024 PT panel - Platelet poor plasma by Coagulation assay PROTHROMBIN TIME/PT Lab Routine senior care current use of anticoagulant Paroxysmal atrial fibrillation (HCC) Once per week for 99 Occurrences starting 01/16/2023 until 01/16/2024 [facility] Work Phone: Comment on above: Once per week for 99 Occurrences starting 01/16/2023 until 01/16/2024 End: 12-23-2024 PT panel - Platelet poor plasma by Coagulation assay PROTHROMBIN TIME Lab STAT director 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 current use of anticoagulant 24 Occurrences starting 12/24/2023 until 12/23/2024 [facility] Work Phone: Comment on above: 24 Occurrences start ing 12/24/2023 until 12/23/2024 Serum chloride measurement [facility] Sodium measurement [facility] Urea nitrogen [Mass/volume] in Serum or Plasma [facility] End: 01-25-2023 Us soft tissue head & neck real time imge docm US THYROID/PARATHYROID Radiology Routine Thyroid nodule 1 Occurrences starting 12/26/2021 until 01/25/2023 [facility] Work Phone: Comment on above: 1 Occurrences starti ng 12/26/2021 until 01/25/2023 [facility] Immunizations Immunization Date Immunization Notes Care Provider Fa cility 12-03-2023 influenza virus vacc ine, unspecified formulation Stas Mora MD Work Phone: [facility] 01-10-2023 influenza (HD-IIV4) vaccine, age 65+ yr, high dose, quadrivalent, PF (FLUZONE HIGH-DOSE) Coretta Jalloh [facility] 01-10-2023 influenza virus vacc ine, unspecified formulation Coretta Jalloh [facility] 12-26-2021 influenza, high-dose , quadrivalent vaccine (FLUZONE HIGH DOSE QUADRIVALENT) Stas Mora MD Work Phone: [facility] 12-26-2021 influenza virus vacc ine, unspecified formulation Senia Cross [facility] 02-27-2021 tetanus toxoid, redu natividad diphtheria toxoid, and acellular pertussis vaccine, adsorbed Stas Mora MD Work Phone: [facility] 02-27-2021 zoster vaccine recombinant Stas Mora MD Work Phone: [facility] 12-25-2020 Covid (Pfizer) Dr. Stas gonzales Work Phone: [facility] 12-10-2020 influenza (HD-IIV4) vaccine, age 65+ yr, high dose, quadrivalent, PF (FLUZONE HIGH-DOSE) Coretta [facility] 12-10-2020 influenza, high dose seasonal, preservative-free Stas Mora MD Work Phone: [facility] 09-17-2020 zoster vaccine recombinant Stas Mora MD Work Phone: [facility] 05-09-2020 Covid (Pfizer) Dr. Stas gonzales Work Phone: [facility] 04-18-2020 Covid (Pfizer) Dr. Stas gonzales Work Phone: [facility] 12-24-2016 influenza, high dose seasonal, preservative-free Stas Mora MD Work Phone: [facility] 12-22-2015 Influenza virus vaccine [facility] 12-22-2015 influenza, seasonal, injectable, preservative free Stas Mora MD Work Phone: [facility] Work Phone: 01-30-2014 influenza, high dose seasonal, preservative-free Stas Mora MD Work Phone: [facility] Work Phone: 01-24-2013 influenza virus vacc ine, unspecified formulation Stas Mora MD Work Phone: [facility] 02-22-2008 pneumococcal polysaccharide vaccine, 23 valent Stas Mora MD Work Phone: [facility] Work Phone: 02-22-2008 tetanus and diphther ia toxoids, adsorbed, preservative free, for adult use (2 Lf of tetanus toxoid and 2 Lf of diphtheria toxoid) Stas Mora MD Work Phone: [facility] Work Phone: Payers Date Payer Category Payer Self-pay [id number] 2022 Unknown [id number] 2016 Medicare [employer] [place] [id number] 2016-Present [phone] [address] [place] [address] [facility] [id number] 2016 Medicare [employer] [place] [id number] 2016-Present [phone] [address] [place] [address] [facility] [id number] 2016 [place] [id number] 2016 Medicare [id number] 1935 Unknown [id number] 2.16840.1.475011.3.579. 2.627 1935 Unknown [id number] 2.16840.1.695901.3.579. 2.627 Unknown VA AUTH REQUIR ED SEE NOTE [id number] Unknown VA AUTH REQUIR ED SEE NOTE . [id number] Unknown [id number] 2.16.840.1.336200.3.579. 2.462 Unknown [id number] 2.16840.1.515880.3.579. 2.462 Unknown [id number] 2.16.840.1.960798.3.579. 2.462 Unknown [id number] 2.16840.1.475594.3.579. 2.462 Unknown [id number] 2.16840.1.681199.3.579. 2.462 Unknown [id number] 2.16.840.1.249940.3.579. 2.462 Unknown [id number] 2.16.840.1.526473.3.579. 2.462 Unknown [id number] 2.16.840.1.472572.3.579. 2.462 Unknown [id number] 2.16.840.1.185496.3.579. 2.462 Unknown [id number] 2.16840.1.996432.3.579. 2.462 Unknown [id number] 2.16.840.1.716273.3.579. 2.462 Unknown [id number] 2.16840.1.848169.3.579. 2.462 Unknown [id number] 2.16840.1.104887.3.579. 2.462 Unknown [id number] 2.840.1.213984.3.579. 2.462 Unknown [id number] 2.840.1.419666.3.579. 2.462 Unknown [id number] 2.840.1.932215.3.579. 2.462 Unknown [id number] 2.840.1.272368.3.579. 2.462 Unknown [id number] 2.840.1.749369.3.579. 2.462 Unknown [id number] 2.840.1.745223.3.579. 2.462 Unknown [id number] .840.1.699571.3.579. 2.462 Unknown [id number] 2.840.1.727883.3.579. 2.462 Unknown [id number] 2.840.1.632547.3.579. 2.462 Unknown [id number] 2.840.1.496716.3.579. 2.462 Unknown [id number] 2.840.1.334117.3.579. 2.462 Unknown [id number] .840.1.835920.3.579. 2.462 Unknown [id number] 2.840.1.427170.3.579. 2.462 Unknown [id number] 2.840.1.005110.3.579. 2.462 Unknown [id number] 2.840.1.232570.3.579. 2.462 Unknown [id number] 2.16840.1.291251.3.579. 2.462 Unknown [id number] 2.16.840.1.993926.3.579. 2.462 Unknown [id number] 2.16.840.1.511790.3.579. 2.462 Unknown [id number] 2.16840.1.229374.3.579. 2.462 Unknown [id number] 2.16840.1.566014.3.579. 2.462 Unknown [id number] 2.16.840.1.805117.3.579. 2.462 Unknown [id number] 2.840.1.627146.3.579. 2.462 Social History Date Type Detail Facility Start: 05-04-2017 End: 09-01-2024 Tobacco smoking status NHIS Ex-smoker [facility] Start: 02-15-2021 End: 07-28-2024 Alcohol intake Current non-drinker of alcohol (finding) [facility] Start: 08-26-2020 End: 08-29-2021 History SDOH Alcohol Frequency 2 [facility] Start: 08-26-2020 End: 08-29-2021 History SDOH Alcohol Std Drinks 1 [facility] Start: 08-26-2020 End: 08-29-2021 History SDOH Social Connections [facility] 3 [facility] Start: 08-26-2020 End: 08-29-2021 History SDOH Social Connections Living 5 [facility] Start: 08-26-2020 History SDOH Physical Activity MPS 6 [facility] Start: 08-26-2020 Education 12 [facility] Start: 1935 Sex Assigned At Male [facility] Start: 02-11-2020 End: 12-26-2021 Exposure to SARS-CoV-2 (event) Not sure [facility] History of tobacco use Current smoker [facility] Start: 05-04-2017 End: 12-26-2021 Tobacco use and exposure Smokeless tobacco non-user [facility] Start: 12-21-2021 End: 02-10-2023 Tobacco smoking status RIIS Unknown if ever smoked [facility] Start: 12-22-2021 Non-smoker [facility] Start: 12-26-2021 Tobacco Comment 30 yaers ago [facility] Start: 02-28-2020 End: 08-29-2021 History of Social function [facility] Start: 02-28-2020 End: 08-29-2021 Social connection and isolation panel [facility] Do you belong to any clubs or organizations such as jew groups, unions, fraternal or athletic groups, or school groups? No [facility] Are you now , , , , never or living with a partner? [facility] How often to you hav e a drink containing alcohol? Monthly or less [facility] How many standard dr inks containing alcohol do you have on a typical day? 1 or 2 [facility] How often do you hav e 6 or more drinks on 1 occasion? Never [facility] How hard is it for y ou to pay for the very basics like food, housing, medical care, and heating Not hard at all [facility] Do you feel stress - tense, restless, nervous, or anxious, or unable to sleep at night because your mind is troubled all the time - these days [OSQ] Not at all [facility] (I/We) worried wheth er (my/our) food would run out before (I/we) got money to buy more. Never true [facility] Start: 08-26-2020 Gender identity Identifies as male gender (finding) [facility] Start: 08-26-2020 Sexual orientation Heterosexual (finding) [facility] Sex Assigned At Sex [facility] Are you now , , , , never or living with a partner? [facility] How often to you hav e a drink containing alcohol? 2-4 times a month [facility] Goals Date Patient Goal Desired Activity /State Functional Status Date Assessment Result Facility 09-06-2024 Functional status Ambulates [facility] Work Phone: 07-26-2024 Total score [AUDIT-C] 1 07/27/19 25 6:26 PM EDT User, Olena [facility] 07-26-2024 Within the last year , have you been humiliated or emotionally abused in other ways by your partner or ex-partner? No 07/26/2024 6:26 PM EDT User, [email or web address] No [facility] 07-26-2024 Within the last year , have you been afraid of your partner or ex-partner? No 07/26/2024 6:26 PM EDT User, [email or web address] No [facility] 07-26-2024 Within the last year , have you been raped or forced to have any kind of sexual activity by your partner or ex-partner? No 07/26/2024 6:26 PM EDT User, [email or web address] No [facility] 07-26-2024 Within the last year , have you been kicked, hit, slapped, or otherwise physically hurt by your partner or ex-partner? No 07/26/2024 6:26 PM EDT User, [email or web address] No [facility] 07-26-2024 How often to you hav e a drink containing alcohol? Monthly or less 07/26/2024 6:26 PM EDT User, Mychart Monthly or less [facility] 07-26-[address] inks containing alcohol do you have on a typical day? 1 or 2 07/26/2024 6:26 PM EDT User, Mychart 1 or 2 [facility] 07-26-2024 How often do you hav e 6 or more drinks on 1 occasion? Never 07/26/2024 6:26 PM EDT User, Mychart Never [facility] 11-17-2022 Functional Status Up ad tara [facility] 11-17-2022 Functional Status Identified as high risk, Fall ID band on, Room located near nursing station [facility] 12-22-2021 Functional status Ambulates;Chair [facility] Work Phone: 07-02-2016 Are you deaf, or do you have serious difficulty hearing No 07/02/2016 2:52 PM JOYT Anita Zhang, DO No [facility] Work Phone: 07-02-2016 Are you blind, or do you have serious difficulty seeing, even when wearing glasses No 07/02/2016 2:52 PM JOYT Anita Zhang, DO No [facility] 07-02-2016 Do you have serious difficulty walking or climbing stairs No 07/02/2016 2:52 PM EDT Anita Zhang, DO No [facility] 07-02-2016 Do you have difficul ty dressing or bathing No 07/02/2016 2:52 PM EDT Anita Zhang, DO No [facility] 07-02-2016 Because of a physica l, mental, or emotional condition, do you have difficulty doing errands alone such as visiting a physician's office or shopping No 07/02/2016 2:52 PM EDT Anita Zhang, DO No [facility] Mental Status Date Assessment Result Facility 09-06-2024 Cognitive function Voice/Name [facility] Work Phone: 09-05-2024 Cognitive function Appropriate;Cooperativ e [facility] Work Phone: 02-10-2023 Cognitive function Level Of Cons ciousness Awake;Alert;Appropriate;Fol lows Commands [facility] Work Phone: 11-17-2022 Mental Status Orientation Oriented x 4 [facility] 11-17-2022 Mental Status [facility] 12-22-2021 Cognitive function Voice/Name [facility] Work Phone: 12-21-2021 Cognitive function Voice/Name [facility] Work Phone: 07-02-2016 Because of a physica l, mental, or emotional condition, do you have serious difficulty concentrating, remembering, or making decisions No 07/02/2016 2:52 PM EDT Anita Zhang, DO No [facility] Clinical Notes 03-12-2020 to 09-21-2024 Telephone Encounter - Petty Vargas - 09/21/2024 9:21 AM EDTTelephone Encounter - Petty Vargas - 09/21/2024 9:21 AM EDT Note Date & Type Note Facility 09-21-2024 Telephone encounter Note Form atting of this note might be different from the original. [facility] for [facility]. Maria Guadalupe states that he has been in there for two weeks. Please advise [facility] 09-21-2024 Miscellaneous Notes Formattin g of this note might be different from the original. [facility]. Maria Guadalupe states that he has been in there for two weeks. Please advise documented in this encounter [facility] 09-06-2024 Consult note [facility] 09-06-2024 Consult note Note Date/Time September 06, 2024 4:37pm [facility] Medical Records Department [address] [place] [address] Counseling Note - Pharmacy 09/06/24 1143 MR#: [id number] Acct: [id number] Name: ROBY FLORES Rep #:[id number] : 1935 89 From: Isabelle Summers PCP: Dr. Stas Mora MD Status:AD M [place] [facility] [place] Med Reconciliation Pharmacy Service has performed discharge [...] applicable): Date CC: ~ Signed [facility] Work Phone: [phone] Discharge summary Author Navid Dominguez [facility] Note Date/Time September 06, 2024 11:1 4am [facility] Medical Records Department [address] [place] [address] Discharge Summary 09/06/24 1109 MR#: [id number] Acct: [id number] Name: ROBY FLORES Rep #:[id number] : 1935 89 From: Navid Trejo PCP: Dr. Stas Mora MD Status:AD M IN [place] [facility] DK208-9 Providers Date of Admission: 09/02/24 Date of [...] explained to the [facility] 09/06: INR 2.4. Hold warfarin [...] The daughter is the healthcare power of prosecuting attorney. #History of dementia: On rivastigmine #Dyslipidemia: [...] (Auto) 66.8, Lymph % (Auto) 16.4 L, Burt % (Auto) 9.1, Eos % (Auto) 6.3 [...] before D/C Order can be placed): [facility] Charges/Coding Visit Charges Inpatient E&M: 85525 Disch Hosp >30min 09/06/24 1114 <Electronically signed by Navid Dominguez MD> Cosigner Signature (if applicable): CC: Dr. Stas Mora MD; Dr. Navid Dominguez MD~ Signed [facility] Work Phone: [phone]) 973-769306-17-2025 Discharge summary Author Navid Dominguez [facility] Note Date/Time September 06, 2024 11:0 9am [facility] Medical Records Department [address] [place] [address] Transfer to [facility] Care MR#: [id number] Acct: [id number] Name: ROBY FLORES Rep #:[id number] : [...] SERVICES PRIOR TO HIS/HER TRANSFER TO THE F. 09/06/24 1109<Electronically signed by Navid Dominguez MD> [...] explained to the patient and [facility] # Fever * Patient developed [...] The daughter is the healthcare power of prosecuting attorney. #History of dementia: On rivastigmine #Dyslipidemia: [...] liberalized regular diet with consistency/texture as per BOBTAIL [employer]IVER. Will continue 120mL ensure plus HP 4 [...] before D/C Order can be placed): [facility] 09/06/24 1109 <Electronically signed by Navid Dominguez MD> Cosigner Signature (if applicable): CC: Dr. Stas Mora MD; Dr. Kathy Wells MD ~ [facility] Work Phone: [phone] 199-892406-17-2025 Discharge summary [facility] Medical Records Department [address] [place] [address] Discharge Summary 09/06/24 1109 MR#: [id number] Acct: [id number] Name: ROBY FLORES Rep #:[id number] : 1935 89 From: Navid Trejo PCP: Dr. Stas Mora MD Status:AD M [place] Location: [place] SD216-6 Providers Date of Admission: 09/02/24 Date of [...] explained to the patient and his [facility] 09/06: INR 2.4. Hold warfarin [...] The daughter is the healthcare power of prosecuting attorney. #History of dementia: On rivastigmine #Dyslipidemia: [...] (Auto) 66.8, Lymph % (Auto) 16.4 L, Burt % (Auto) 9.1, Eos % (Auto) 6.3 [...] before D/C Order can be placed): [facility] Charges/Coding Visit Charges Inpatient E&M: 25971 Disch Hosp >30min 09/06/24 1114 Cosigner Signature (if applicable): CC: Dr. Stas Mora MD; Dr. Navid Dominguez MD~ Signed [facility]06-17-2025 Discharge summary [facility] Medical Records Department [address] [place] [address] [facility] MR#: [id number] Acct: [id number] Name: ROBY FLORES Rep #:[id number] : [...] TRANSFER TO [facility]. 09/06/24 1109 Diet Diet Order/Speech Therapy: INPATIENT [...] explained to the patient and his [facility] # Fever * Patient developed [...] The daughter is the healthcare power of prosecuting attorney. #History of dementia: On rivastigmine #Dyslipidemia: [...] liberalized regular diet with consistency/texture as per BOBTAIL DRIVER. Will continue 120mL ensure plus HP 4 [...] before D/C Order can be placed): [facility] 09/06/24 1109 Cosigner Signature (if applicable): CC: Dr. Stas Mora MD; Dr. Kathy Wells MD ~ [facility]06-17-2025 [facility] Medical Records Department [address] [place] [address] Discharge Summary 09/06/24 1109 MR#: [id number] Acct: [id number] Name: ROBY FLORES Rep #: [id number] : 1935 89 From: Navid Dominguez MD PCP: Dr. Stas Mora MD Status:ADM IN [facility] Providers Date of Admission: 09/02/24 Date of [...] The daughter is the healthcare power of prosecuting attorney. #History of dementia: On rivastigmine #Dyslipidemia: [...] / Microbiol (more content not included)...[facility] 09-05-2024 Progress note Author Navid Dominguez [facility] Note Date/Time September 05, 2024 4:15 pm [facility] Medical Records Department [address] [place] [address] Progress Note - Hospitalist 09/05/24 1608 MR#: [id number] Acct: [id number] Name: ROBY FLORES Rep #:[id number] : 1935 89 From: Navid Trejo PCP: Dr. Stas Mora MD Status:AD M IN Location: [place] [address]-1 Reason for Visit Reason for Visit: Diagnoses [...] Clarity Clear, Urine pH 7.0, Ur Specific [place] 1.005, Urine Protein 15 H, Urine Glucose [...] 77.2 H, Lymph % (Auto) 9.8 L, Burt % (Auto) 7.9, Eos % (Auto) 4.0, [...] The daughter is the healthcare power of prosecuting attorney. #History of dementia: On rivastigmine #Dyslipidemia: On statin #Benign essential hypertension: On lisinopril. DVT prophylaxis: * Resume Coumadin today. INR 1.8. Daughter still thinking about that she wants him to continue otherwise. Code status: DNRCCA no intubation * Disposition: Awaiting placement. PT OT on board. Charges/Coding Visit Charges Inpatient E&M: 85402 Subs Hosp L2 09/05/24 1615 <Electronically signed by Navid Dominguez MD> Cosigner Signature (if applicable): CC: ~ Signed [facility] Work Phone: [phone] 289-249906-16-2025 Progress note [facility] Medical Records Department [address] [place] [address] Progress Note - Hospitalist 09/05/24 1608 MR#: [id number] Acct: [id number] Name: ROBY FLORES Rep #:[id number] : 1935 89 From: Navid Trejo PCP: Dr. Stas Mora MD Status:AD M IN [facility] Reason for Visit Reason for Visit: Diagnoses [...] Clarity Clear, Urine pH 7.0, Ur Specific [place] 1.005, Urine Protein 15 H, Urine Glucose [...] 77.2 H, Lymph % (Auto) 9.8 L, Burt % (Auto) 7.9, Eos % (Auto) 4.0, [...] * PT OT on board. Fall precautions. 6/16: For now they agree to continue Coumadin. [...] The daughter is the healthcare power of prosecuting attorney. #History of dementia: On rivastigmine #Dyslipidemia: On statin #Benign essential hypertension: On lisinopril. DVT prophylaxis: * Resume Coumadin today. INR 1.8. Daughter still thinking about that she wants him to continue otherwise. Code status: DNRCCA no intubation * Disposition: Awaiting placement. PT OT on board. Charges/Coding Visit Charges Inpatient E&M: 32014 Subs Hosp L2 09/05/24 1615 Cosigner Signature (if applicable): CC: ~ Signed [facility]06-15-2025 Progress note Author Kathy Wells [facility] Note Date/Time September 04, 2024 3:37 pm [facility] Medical Records Department [address] [place] [address] Progress Note 09/04/24 1412 MR#: [id number] Acct: [id number] Name: ROBY FLORES Rep #:[id number] : 1935 89 From: Kathy Wells MD PCP: Dr. Stas Mora MD Status:AD M IN Location: [place] [address]-1 Subjective Subjective Patient seen and examined. He [...] 78.0 H, Lymph % (Auto) 7.8 L, Burt % (Auto) 7.7, Eos % (Auto) 5.3 [...] The daughter is the healthcare power of prosecuting attorney. * In light of patient's confusion [...] on board. Charges/Coding Visit Charges Inpatient E&M: 33447 Subs Hosp L2 09/04/24 1537 <Electronically signed by Kathy Wells MD> Kathy Wells MD Cosigner Signature (if applicable): CC: ~ Signed [facility] Work Phone: [phone] 427-373706-15-2025 Progress note [facility] Medical Records Department [address] [place] [address] Progress Note 09/04/24 1412 MR#: [id number] Acct: [id number] Name: ROBY FLORES Rep #:[id number] : 1935 89 From: Kathy Wells MD PCP: Dr. Stas Mora MD Status:AD M IN Location: [place] [address]-1 Subjective Subjective Patient seen and examined. He [...] 78.0 H, Lymph % (Auto) 7.8 L, Burt % (Auto) 7.7, Eos % (Auto) 5.3 [...] The daughter is the healthcare power of prosecuting attorney. * In light of patient's confusion [...] on board. Charges/Coding Visit Charges Inpatient E&M: 53826 Subs Hosp L2 09/04/24 1537 Kathy Wells MD Cosigner Signature (if applicable): CC: ~ Signed [facility]06-14-2025 Progress note Author Kathy [facility] Note Date/Time September 03, 2024 6:29 pm [facility] Medical Records Department [address] [place] [address] Progress Note 09/03/24 1135 MR#: [id number] Acct: [id number] Name: ROBY FLORES Rep #:[id number] : 1935 89 From: Kathy Wells MD PCP: Dr. Stas Mora MD Status:AD M [place] Location: [place] TA555-7 Subjective Subjective Patient seen and examined. He [...] 83.4 H, Lymph % (Auto) 6.7 L, Burt % (Auto) 6.0, Eos % (Auto) 2.8, [...] The daughter is the healthcare power of prosecuting attorney. * In light of patient's confusion [...] on board. Charges/Coding Visit Charges Inpatient E&M: 30683 Subs Hosp L2 09/03/24 182 <Electronically signed by Kathy Wells MD> Kathy Wells MD Cosigner Signature (if applicable): CC: ~ Signed [facility] Work Phone: [phone]) 130-189606-14-2025 Progress note [facility] Medical Records Department [address] [place] [address] Progress Note 09/03/24 1135 MR#: [id number] Acct: [id number] Name: ROBY FLORES Rep #:[id number] : 1935 89 From: Kathy Wells MD PCP: Dr. Stas Mora MD Status:AD M IN Location: [place] LB552-8 Subjective Subjective Patient seen and examined. He [...] 83.4 H, Lymph % (Auto) 6.7 L, Burt % (Auto) 6.0, Eos % (Auto) 2.8, [...] The daughter is the healthcare power of prosecuting attorney. * In light of patient's confusion [...] on board. Charges/Coding Visit Charges Inpatient E&M: 64186 Subs Hosp L2 09/03/24 1829 Kathy Wells MD Cosigner Signature (if applicable): CC: ~ Signed [facility]06-14-2025 Consult note Author Spike De La Cruz [facility] Note Date/Time September 03, 2024 3:49 pm [facility] Medical Records Department [address] [place] [address] Pharmacokinetic/Renal -Consult 09/03/24 1548 MR#: [id number] Acct: [id number] Name: ROBY FLORES Rep #:[id number] : 1935 89 From: Spike Maynard [facility] PCP: Dr. Stas Mora MD Status:AD M IN Location: [place] [address] Consult Antibiotic Management Pharmacy has been consulted [...] 09/03/24 1549 <Electronically signed by Spike Angelo [facility]> Date _ Spike De La Cruz [facility] Cosigner Signature (if applicable): Date CC: ~ Signed [facility] Work Phone: [phone]) 686-148506-14-2025 Consult note [facility] Medical Records Department [address] [place] [address] Pharmacokinetic/Renal -Consult 09/03/24 1548 MR#: [id number] Acct: [id number] Name: ROBY FLORES Rep #:[id number] : 1935 89 From: Spike Maynard [facility] PCP: Dr. Stas Mora MD Status:AD M IN Y Location: [place] [address] Consult Antibiotic Management Pharmacy has been consulted [...] Trough: Vancomycin (09/04/24 at 2130) 09/03/24 1549 ering RPh> Date _ Spike C Dorothy RPh Cosigner Signature (if applicable): Date CC: ~ Signed [facility]06-13-2025 Progress note Author Kathy [facility] Note Date/Time September 02, 2024 6:45 pm [facility] Medical Records Department [address] [place] [address] Progress Note 09/02/24 1404 MR#: [id number] Acct: [id number] Name: ROBY FLORES Rep #:[id number] : 1935 89 From: Kathy Wells MD PCP: Dr. Stas Mora MD Status:AD M IN Location: [place] [address] Subjective Subjective Patient seen and examined. He [...] (Auto) 87.9 H, Lymph %(Auto) 3.8 L, Burt % (Auto) 4.8, Eos % (Auto) 2.2, [...] evidence of intracranial bleed. * [facility] with [facility] fluids. * [...] The daughter is the healthcare power of prosecuting attorney. * In light of patient's confusion [...] intubation * Charges/Coding Visit Charges Inpatient E&M: 27900 Subs Hosp L2 09/02/24 1845 <Electronically signed by Kathy Wells MD> Kathy Wells MD Cosigner Signature (if applicable): CC: ~ Signed [facility] Work Phone: [phone] 207-345306-13-2025 Progress note [facility] Medical Records Department [address] [place] [address] Progress Note 09/02/24 1404 MR#: [id number] Acct: [id number] Name: ROBY FLORES Rep #:[id number] : 1935 89 From: Kathy Wells MD PCP: Dr. Stas Mora MD Status:AD M IN [facility] Subjective Subjective Patient seen and examined. He [...] (Auto) 87.9 H, Lymph %(Auto) 3.8 L, Burt % (Auto) 4.8, Eos % (Auto) 2.2, [...] evidence of intracranial bleed. * [facility]drate gently with IV fluids. * [...] The daughter is the healthcare power of prosecuting attorney. * In light of patient's confusion [...] intubation * Charges/Coding Visit Charges Inpatient E&M: 77463 Subs Hosp L2 09/02/24 6625 Kathy Wells MD Cosigner Signature (if applicable): CC: ~ Signed [facility]06-13-2025 Evaluation note* Diagnosis Onset Date Resolution Status Admit Date Adult failure to thrive acute [facility] 2024 12:49pm Chronic anticoagulation acute [facility] 2024 12:49pm Contusion of hip acute August 12:49pm Fall acute September 02 12:49pm History of atrial fibrillation acute September 02, 2024 12:49pm History of dementia acute September 02, 2024 12:49pm History of TIAs acute August 12:49pm Unable to ambulate acute August 212024 12:49pm [facility] Work Phone: [phone] 291-508506-13-2025 Evaluation note* Diagnosis Onset Date Resolution Status Admit Date Chronic anticoagulation acute [facility] 2024 12:49pm Contusion of hip acute August 12:49pm Fall acute September 02 12:49pm History of atrial fibrillation acute September 02, 2024 12:49pm History of TIAs acute August 12:49pm Unable to ambulate acute August 212024 12:49pm Adult failure to thrive inactive [facility] 2024 12:49pm History of dementia inactive September 02, 2024 12:49pm [facility] Work Phone: 1([phone]) 881-258606-12-2025 Consult note Author Zachary Lubin [facility] Note Date/Time September 01, 2024 9:15 pm [facility] Medical Records Department [address] [place] [address] Pharmacokinetic/Renal -Consult 09/01/242113 MR#: [id number] Acct: [id number] Name: ROBY FLORES Rep #:[id number] : 1935 89 From: Zachary Serrano od PCP: Dr. Stas Mora MD Status:AD M GERMAN Y Location: [place] [address] Consult Antibiotic Management Pharmacy has been consulted to manage selected antibiotic: Vancomycin Type of Intervention Type of Consult: Labs Labs: Sodium 139 mmol/L (133-145) 09/01/24 [...] Date _ CC: ~ Signed [facility] Work Phone: [phone] 483-273006-12-2025 Progress note Author Marta Black [facility] Note Date/Time September 01, 2024 7:55 pm [facility] Medical Records Department [address] [place] [address] Progress Note - Hospitalist 09/01/241952 MR#: [id number] Acct: [id number] Name: ROBY FLORES Rep #:[id number] : 1935 89 From: Marta Black DO PCP: Dr. Stas Mora MD Status:AD [facility] Location: [place] [address] Hospitalist Note Called regarding Mr. Flores having [...] (if applicable): CC: ~ Signed [facility] Work Phone: [phone] Consult note [facility] Medical Records Department [address] [place] [address] Pharmacokinetic/Renal -Consult 09/01/242113 MR#: [id number] Acct: [id number] Name: ROBY FLORES Rep #:[id number] : 1935 89 From: Zachary Serrano od PCP: Dr. Stas Mora MD Status:AD M GER[place] Y Location: [place] [address] Consult Antibiotic Management Pharmacy has been consulted to manage selected antibiotic: Vancomycin Type of Intervention Type of Consult: Labs Labs: Sodium 139 mmol/L (133-145) 09/01/24 [...] @ 0830 09/01/242114 lood> Date _ Zachary Lubin Cosigner Signature (if applicable): Date _ CC: ~ Signed [facility]06-12-2025 History and physical note Author Kathy Wells [facility] Note Date/Time September 01, 2024 6:04 pm [facility] Medical Records Department [address] [place] [address] H&P Exam - Hospitalist 09/01/24 1018 MR#: [id number] Acct: [id number] Name: ROBY FLORES Rep #:[id number] : 1935 89 From: Kathy Wells MD PCP: Dr. Stas Mora MD Status:AD M [place] [facility] [place]-3 HPI - General General Date of Admission: [...] in the ED were BP of 180/89, MS of 87, RR of 18 and temp [...] weakness due to mechanical fall. [facility] Medical History Chronic anticoagulation TIA (transient ischemic [...] 87.5 H, Lymph % (Auto) 4.8 L, Burt % (Auto) 5.7, Eos % (Auto) 1.2, [...] Clarity Clear, Urine pH 8.0, Ur Specific [place] 1.010, Urine Protein 15 H, Urine Glucose [...] No fracture or dislocation present. Reading Location: [facility] 09/01/24 09:05 IMPRESSION: Cerebral atrophy. Mucosal thickening of the ethmoid sinuses as well as opacification of the left maxillary sinus. Reading Location: [facility]--1 Chest X-Ray 09/01/24 09:25 IMPRESSION: No acute abnormality is seen. Reading Location: [facility]--[facility] Assessment & Plan Assessment/Plan (1) Adult [...] The daughter is the healthcare power of prosecuting attorney. * In light of patient's confusion [...] be DNR CCA no intubation. * Total redq-oi-dkcz time 16 minutes. Charges/Coding Visit Charges Inpatient E&M: 61463 Init Hosp L3 Procedures Hospitalists Procedures: 52033 Advncd Care Plan 30 Min 09/01/24 1804 <Electronically signed by Kathy Wells MD> Cosigner Signature (if applicable): CC: Dr. Stas Mora MD; Dr. Kathy Wells MD~ Signed [facility] Work Phone: [phone]) 246-142806-12-2025 Progress note [facility] Medical Records Department [address] [place] [address] Progress Note - Hospitalist 09/01/241952 MR#: [id number] Acct: [id number] Name: ROBY FLORES Rep #:[id number] : 1935 89 From: Marta Black DO PCP: Dr. Stas Mora MD Status:AD M GER[place] Location: [place] [address] Hospitalist Note Called regarding Mr. Flores having [...] (if applicable): CC: ~ Signed [facility]06-12-2025 History and physical note [facility] Medical Records Department [address] [place] [address] H&P Exam - Hospitalist 09/01/24 1018 MR#: [id number] Acct: [id number] Name: ROBY FLORES Rep #:[id number] : 1935 89 From: Kathy Wells MD PCP: Dr. Stas Mora MD Status:AD M [place]ER[place] Location: [place] [address] HPI - General General Date of Admission: [...] in the ED were BP of 180/89, MS of 87, RR of 18 and temp [...] weakness due to mechanical fall. [facility] Medical History Chronic anticoagulation TIA (transient ischemic [...] 87.5 H, Lymph % (Auto) 4.8 L, Burt % (Auto) 5.7, Eos % (Auto) 1.2, [...] Clarity Clear, Urine pH 8.0, Ur Specific [place] 1.010, Urine Protein 15 H, Urine Glucose [...] No fracture or dislocation present. Reading Location: [facility] 09/01/24 09:05 IMPRESSION: Cerebral atrophy. Mucosal thickening of the ethmoid sinuses as well as opacification of the left maxillary sinus. [facility] Chest X-Ray 09/01/24 09:25 IMPRESSION: No acute abnormality is seen. Reading Location: [facility] Assessment & Plan Assessment/Plan (1) Adult [...] evidence of intracranial bleed. * [facility]drate gently with IV fluids. * [...] The daughter is the healthcare power of prosecuting attorney. * In light of patient's confusion [...] be DNR CCA no intubation. * Total hdph-ht-kwgm time 16 minutes. Charges/Coding Visit Charges Inpatient E&M: 56674 Init Hosp L3 Procedures Hospitalists Procedures: 73926 Advncd Care Plan 30 Min 09/01/24 1804 Cosigner Signature (if applicable): CC: Dr. Stas Mora MD; Dr. Kathy Wells MD~ Signed [facility]06-12-2025 Telephone encounter Note* Telephone Encounter - Haydee Oliveros LPN - 09/01/2024 2:49 PM EDT Mychart message sent [facility]06-12-2025 Miscellaneous Notes* Telephone Encounter - Haydee [...] affordable alvarado using Good Rx coupons. At [facility] (his current pharmacy), he can get a 1 mo supply for ~$30. If he switches the prescription to [facility], he can get a 1 mo supply for ~$20. See coupons below. Rivastigmine patches are also available via GoodRx. It appears the cheapest option is through [facility], in which he can get 30 patches for $52. Coupon also below. Sending to PCP to review and provide patient with coupon card information. Russell Aguayo PharmD, [facility] Primary Care Clinical Pharmacist Memantine coupon at [facility] Memantine coupon at [facility] Rivastigmine patches coupon [facility] [facility] documented in this encounterPark[facility] Hospital06-[facility] Telephone encounter Note * Telephone Encounter - Luciana Cisneros MD - 09/01/2024 1:26 PM EDT Thanks Russell, Staff please let patient know what the pharmacist as opined on. Regards, Luciana Cisneros MD [facility]06-12-2025 Discharge summary Author Inderjit Gillespie [facility] Note Date/Time September 01, 2024 10:2 5am [facility] Medical Records Department [address] [place] [address] Emergency Department Summary 09/01/24 MR#: [id number] Acct: [id number] Name: ROBY FLORES Rep #:[id number] : [...] shoulders elbows and wrist. 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 Neurologically he is awake alert. Answering [...] 87.5 H Lymph % (Auto) 4.8 L Burt % (Auto) 5.7 Eos % (Auto) 1.2 [...] Clarity Clear Urine pH 8.0 Ur Specific [place] 1.010 Urine Protein 15 H Urine Glucose [...] No fracture or dislocation present. Reading Location: [facility] 09/01/24 09:05 IMPRESSION: Cerebral atrophy. Mucosal thickening of the ethmoid sinuses as well as opacification of the left maxillary sinus. Reading Location: [facility] Chest X-Ray 09/01/24 09:25 IMPRESSION: No acute abnormality is seen. Reading Location: [facility] Chest x-ray, 2 views, AP and [...] your Primary Care Provider. Call [facility] ([phone]) or report to the closest Emergency Room. Call 911 if necessary. 09/01/24 1025 <Electronically signed by Inderjit Gillespie MD> Cosigner Signature (if applicable): CC: Dr. Stas Mora MD ~ Signed [facility] Work Phone: 1(778) 742-827606-12-2025 Discharge summary [facility] Medical Records Department [address] [place] [address] Emergency Department Summary 09/01/24 MR#: [id number] Acct: [id number] Name: ROBY FLORES Rep #:[id number] : [...] shoulders elbows and wrist. 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 Neurologically he is awake alert. Answering [...] X-rays to be taken of both hips. Alok not need any pain meds. He is [...] 87.5 H Lymph % (Auto) 4.8 L Burt % (Auto) 5.7 Eos % (Auto) 1.2 [...] Clarity Clear Urine pH 8.0 Ur Specific [place] 1.010 Urine Protein 15 H Urine Glucose [...] No fracture or dislocation present. Reading Location: [facility] 09/01/24 09:05 IMPRESSION: Cerebral atrophy. Mucosal thickening of the ethmoid sinuses as well as opacification of the left maxillary sinus. Reading Location: [facility] Chest X-Ray 09/01/24 09:25 IMPRESSION: No acute abnormality is seen. Reading Location: [facility]--[facility] Chest x-ray, 2 views, AP and [...] your Primary Care Provider. Call [facility] ([phone]) or report tothe closest Emergency Room. Call 911 if necessary. 09/01/24 1025 Cosigner Signature (if applicable): CC: Dr. Stas Mora MD ~ Signed [facility]06-12-2025 Telephone encounter Note* Telephone Encounter - Russell [...] affordable alvarado using Good Rx coupons. At [facility] (his current pharmacy), he can get a 1 mo supply for ~$30. If he switches the prescription to [facility], he can get a 1 mo supply for ~$20. See coupons below. Rivastigmine patches are also available via [employer]. It appears the cheapest option is through [facility], in which he can get 30 patches for $52. Coupon also below. Sending to PCP to review and provide patient with coupon card information. Russell Aguayo PharmD, BCPS Primary Care Clinical Pharmacist Memantine coupon at [facility] Memantine coupon at [facility] Rivastigmine patches coupon at [facility] Work Phone: [phone] Radiology Diagnostic study note [facility] Imaging Services [address] [place], [place] [address] Brain/Head without Contrast MR#: [id number] Acct: [id number] Name: ROBY FLORES Rep #: [id number] : 1935 M 89 From: Laith Chavez MD PCP: Dr. Stas Mora MD Status: RE G ER Study:Brain/Head without Contrast Date of Exa m: 09/01/24 Exam# [id number] Ordering Dr: Earlene Gillespie MD PROCEDURE: BRAIN/HEAD [...] of the left maxillary sinus. Reading Location: [place] [address] CC: Dr. Inderjit Gillespie MD; Dr. Stas Mora MD ~ Steel Welder: Signed [facility]06-12-2025 Radiology Diagnostic study note [facility] Imaging Services [address] [place] [address] Chest 1 View (Portable) MR#: [id number] Acct: [id number] Name: ROBY FLORES Rep #: [id number] : 1935 M 89 From: Laith Chavez MD PCP: Dr. Stas Mora MD Status: RE G ER Study:Chest 1 View (Portable) Date of Exam: 09/01/24 Exam# [id number] Ordering Dr: Earlene Gillespie MD PROCEDURE: CHEST [...] No acute abnormality is seen. Reading Location: [place] [address] CC: Dr. Inderjit Gillespie MD; Dr. Stas Mora MD ~ Steel Welder: Signed [facility]06-12-2025 Radiology Diagnostic study note [facility] Imaging Services [address] [place] [address] Hips B/L min 2 views w/ Pelvis MR#: [id number] Acct: [id number] Name: ROBY FLORES Rep #: [id number] : 1935 M 89 From: Laith Chavez MD PCP: Dr. Stas Mora MD Status: RE G ER Study:Hips B/L min 2 views w/ Pelvis Date of Exam: 09/01/24 Exam# [id number] Ordering Dr: Earlene Gillespie MD PROCEDURE: HIPS [...] No fracture or dislocation present. Reading Location: [place] [address] CC: Dr. Inderjit Gillespie MD; Dr. Stas Mora MD ~ Steel Welder: Signed [facility]06-11-2025 NoteHNO ID: [id number] Author: LUCIANA CISNEROS MD Service: ? Author [...] and believing his brother, who lives in [place], was present. 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 Additionally, [...] excuse any unintended typographical errors. Recording using [employer] software for draft documentation of the visit was discussed with the patient/authorized sales representatives; all questions welcomed and answered. Patient/authorized sales representatives agreed to proceed Luciana Cisneros [facility]06-11-2025 History of Present illness Narrative* Luciana Cisneros [...] and believing his brother, who lives in [place], was present. 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 Additionally, [...] excuse any unintended typographical errors. Recording using [employer] software for draft documentation of the visit was discussed with the patient/authorized sales representatives; all questions welcomed and answered. Patient/authorized sales representatives agreed to proceed Luciana Cisneros MD documented in this encounterParkwood Hospital06-11-2025 Telephone encounter Note * Telephone Encounter - Coretta Jalloh [facility] - 08/31/2024 2:09 PM EDT [facility] Anticoagulation Episode Summary Anticoagulation Care Providers Provider Role Specialty Phone number Stas Mora MD Referring Family Medicine [phone] Roby Flores is a 89 year old [...] ALLERGIES No Known Allergies Indication for Warfarin: director 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 current use of anticoagulant [...] Pharmacy Anticoagulation Clinic Pharmacy Anticoagulation Clinic Pager: [phone]. [facility]06-11-2025 Miscellaneous Notes* Telephone Encounter - Coretta Jalloh RPh - 08/31/2024 2:09 PM EDT [facility] Anticoagulation Episode Summary Anticoagulation Care Providers Provider Role Specialty Phone number Stas Mora MD Referring Family Medicine [phone] Roby Flores is a 89 year old [...] ALLERGIES No Known Allergies Indication for Warfarin: senior care current use of anticoagulant Paroxysmal atrial [...] Pharmacy Anticoagulation Clinic Pharmacy Anticoagulation Clinic Pager: [phone]. documented in this encounterParkwood Hospital06-11-2025 Instructions* Patient Instructions* Luciana Cisneros MD [...] the Rivastigmine patch and will inform Maria Guadalupeof any updates. - Please monitor your heart [...] if your symptoms change. documented in this encounterParkwood Hospital06-01-2025 Evaluation note* Diagnosis Onset Date Resolution [...] ambulate acute August 212024 10:24am [facility] Work Phone: [phone] 256-883805-14-2025 Telephone encounter Note* Telephone Encounter - Coretta Jalloh RPh - 08/03/2024 11:20 AM EDT I have reviewed the below recommendations and agree with plan. Croetta Jalloh PharmD [facility]05-14-2025 Miscellaneous Notes* Telephone Encounter - Coretta Jalloh RPh - 08/03/2024 11:20 AM EDT I have reviewed the below recommendations and agree with plan. Coretta Jalloh PharmD * Telephone Encounter - Adrian HuangManager Of SustainabilityElana Berry - 08/03/2024 10:57 AM EDT PATIENT [...] 08/31/2024 Caregiver verbalized understanding. Will route to [facility] as FYI. Elana HuangManager Of Sustainability) * Telephone Encounter - Coretta Jalloh RPh - 08/03/2024 10:41 AM EDT [facility] Anticoagulation Episode Summary Anticoagulation Care Providers Provider Role Specialty Phone number Stas Mora MD Referring Family Medicine [phone] Roby Flores is a 88 year old [...] ALLERGIES No Known Allergies Indication for Warfarin: director 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 current use of anticoagulant [...] missed any doses of warfarin. Coretta Jalloh [facility] Clinical Pharmacist, Pharmacy Anticoagulation Clinic Pharmacy Anticoagulation Clinic Pager: [phone]. documented in this encounterParkwood Hospital05-14-2025 Telephone encounter Note * Telephone Encounter - Adrian [email or web address] Berry - 08/03/2024 10:57 AM EDT PATIENT [...] 08/31/2024 Caregiver verbalized understanding. Will route to [facility] as FYI. Elana [email or web address]) [facility]05-14-2025 Telephone encounter Note* Telephone Encounter - Coretta Jalloh RPh - 08/03/2024 10:41 AM EDT [facility] Anticoagulation Episode Summary Anticoagulation Care Providers Provider Role Specialty Phone number Stas Mora MD Referring Family Medicine [phone] Roby Flores is a 88 year old [...] ALLERGIES No Known Allergies Indication for Warfarin: director 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 current use of anticoagulant [...] Pharmacy Anticoagulation Clinic Pharmacy Anticoagulation Clinic Pager: [phone]. [facility]05-08[facility] History of Present illness Narrative* Stas [...] Coronary atherosclerosis of unspecified type of vessel, tazlina or graft Coronary artery disease Other and [...] Past Histories independently gathered by the clinical support director and the remaining scribed note accurately describes [...] AM. Rosie Cruz MA documented in this encounterParkwood Hospital05-08-2025 NoteHNO ID: [id number] Author: STAS MORA MD Service: ? Author [...] Coronary atherosclerosis of unspecified type of vessel, tazlina or graft Coronary artery disease Other and [...] Past Histories independently gathered by the clinical support director and the remaining scribed note accurately describes [...] July 28, 2024 11:16 AM. Rosie Cruz [facility]04-16-2025 Telephone encounter Note* Telephone Encounter - Yeimi Coretta, [facility] - 07/06/2024 10:11 AM EDT [facility] Anticoagulation Episode Summary Anticoagulation Care Providers Provider Role Specialty Phone number Stas Mora MD Referring Family Medicine [phone] Roby Flores is a 88 year old [...] ALLERGIES No Known Allergies Indication for Warfarin: director 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 current use of anticoagulant [...] Pharmacy Anticoagulation Clinic Pharmacy Anticoagulation Clinic Pager: [phone]. [facility]04-16-2025 Miscellaneous Notes* Telephone Encounter - Coretta Jalloh RPh - 07/06/2024 10:11 AM EDT [facility] Anticoagulation Episode Summary Anticoagulation Care Providers Provider Role Specialty Phone number Stas Mora MD Referring Family Medicine [phone] Roby Flores is a 88 year old [...] ALLERGIES No Known Allergies Indication for Warfarin: director 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 current use of anticoagulant [...] missed any doses of warfarin. Coretta Jalloh [facility] Clinical Pharmacist, Pharmacy Anticoagulation Clinic Pharmacy Anticoagulation Clinic Pager: [phone]. documented in this encounterParkwood Hospital04-09-2025 Telephone encounter Note * Telephone Encounter - Coretta Jalloh RPh - 06/29/2024 9:52 AM EDT [facility] Anticoagulation Episode Summary Anticoagulation Care Providers Provider Role Specialty Phone number Stas Mora MD Referring Family Medicine [phone] Roby Flores is a 88 year old [...] ALLERGIES No Known Allergies Indication for Warfarin: senior care current use of anticoagulant Paroxysmal atrial fibrillation (hcc) Anticoagulation Episode Summary Current INR goal: 2.0-3.0 Assessment: INR result of 2.5 is therapeutic Plan: Current Warfarin Dosing As of 06/29/2024 Full warfarin instructions: 1.5 mg every Thu, Sat; 2.5 mg all other days Sent Expert360 message Advised patient to continue current weekly [...] Pharmacy Anticoagulation Clinic Pharmacy Anticoagulation Clinic Pager: [phone]. [facility]04-09-2025 Miscellaneous Notes* Telephone Encounter - Coretta Jalloh RPh - 06/29/2024 9:52 AM EDT [facility] Anticoagulation Episode Summary Anticoagulation Care Providers Provider Role Specialty Phone number Stas Mora MD Referring Family Medicine [phone] Roby Flores is a 88 year old [...] ALLERGIES No Known Allergies Indication for Warfarin: director 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 current use of anticoagulant Paroxysmal atrial fibrillation (hcc) Anticoagulation Episode Summary Current INR goal: 2.0-3.0 Assessment: INR result of 2.5 is therapeutic Plan: Current Warfarin Dosing As of 06/29/2024 Full warfarin instructions: 1.5 mg every Thu, Sat; 2.5 mg all other days Sent Expert360 message Advised patient to continue current weekly [...] Pharmacy Anticoagulation Clinic Pharmacy Anticoagulation Clinic Pager: [phone]. documented in this encounterParkwood Hospital03-12-2025 Instructions* Patient Instructions* Luciana Cisneros MD - 06/01/2024 3:39 PM EDT Look into adult date care once or twice a week. Physical Therapy for vascular parkinsonism documented in this encounterParkwood Hospital03-12-2025 NoteHNO ID: [id number] Author: LUCIANA CISNEROS MD Service: ? Author Type: Physician Type: Progress Notes Filed: 07/14/2024 16:10 Note Text: [facility] Initial Consult Roby Flores is a 88 year old year old male who comes for Comprehensive Geriatric Assessment. Pt accompanied by: daughter Anabelal and SO- Maria Guadalupe. Caregivers involved in [...] not know 911 Social History: Primary language: Anguillan Marital Status: Single Living situation: Home w/ SO Socially engaged? (participates in activities such as clubs, jew, community center, sports, games, visiting friends/relatives, etc?): They go out to eat sometimes, not as often, most of the time they order stuff and pick it up at home. Caregiver [place] and Stress Are your feeling overwhelmed? 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 (participates in activities such as clubs, jew, community center, sports, games, visiting friends/relatives, etc?): They go out to eat sometimes, not as often, most of the time they order stuff and pick it up at home. Caregiver [place] and Stress Are your feeling overwhelmed? 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 Yes, Authorizing Provider Elvis Kearney APRN.METAL LEAF LAYER Medication warfarin (COUMADIN) 1 mg tablet, Sig Take 1 tablet by mouth once daily. Patient not taking: Reported on 04/27/2024, Start Date 11/16/23, End Date , Taking? , Authorizing Provider Elvis Kearney APRN.[employer] Medication furosemide (LASIX) 20 mg tablet, Sig [...] 12/17/23, Taking? , Authorizing Provider Elvis Kearney APRN.[employer] Other OTC med/supplements: None Medication Review: - ANY HIGH RISK MEDICATIONS (STOPP CRITERIA): NO ALLERGIES No Known Allergies Review of Systems Difficulty chew/swallow: No Pain: No Tremor: No Incontinence - During the last 3 months did you leak urine? YES - Type?: likely functional incontinence Constipation/Change in bowel habits: No Vision Positive for vision impairment and wears glasses Follows with cdc associate:YES Hearing - Hearing aid : Hearing impairment, [...] be making the decisions. Luciana Cisneros MD [facility] documented in this encounterParkwood Hospital03-06-2025 Telephone encounter Note * Telephone Encounter - Edilia Mosley - 05/26/2024 3:28 PM EST Spoke with patient's significant other and scheduled on geriatric schedule as directed. Edilia Mosley [facility]03-06-2025 Miscellaneous Notes* Telephone Encounter - Edilia Mosley - 05/26/2024 3:28 PM EST Spoke with patient's significant other and scheduled on geriatric schedule as directed. Edilia Mosley * Telephone Encounter - Vicki Patricia LPN - 05/26/2024 3:01 PM EST Patient scheduled for 05/30/24 internal medicine, needs a Geriatric appointment instead Vicki Patricia LPN May 26, 2024 3:01 PM documented in this encounterParkwood Hospital03-06-2025 Telephone encounter Note * Telephone Encounter - Vicki Patricia LPN - 05/26/2024 3:01 PM EST Patient scheduled for 05/30/24 internal medicine, needs a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 Stas Mora MD Referring Family Medicine [phone] Roby Flores is a 88 year old [...] ALLERGIES No Known Allergies Indication for Warfarin: director 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 current use of anticoagulant [...] Pharmacy Anticoagulation Clinic Pharmacy Anticoagulation Clinic Pager: [phone]. [facility]09-[facility] History of Present illness Narrative* Stas [...] Coronary atherosclerosis of unspecified type of vessel, tazlina or graft Comment: Coronary artery disease No [...] Past Histories independently gathered by the clinical support director and the remaining scribed note accurately describes [...] AM. Rosie Cruz MA documented in this encounterParkwood Hospital08-28-2024 Telephone encounter Note * Telephone Encounter - Coretta Jalloh [facility] - 11/18/2023 4:30 PM EDT [facility] Pharmacy Anticoagulation Clinic Anticoagulation Episode Summary Anticoagulation Care Providers Provider Role Specialty Phone number Stas Mora MD Referring Family Medicine [phone] Roby Flores is a 88 year old [...] ALLERGIES No Known Allergies Indication for Warfarin: director 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 current use of anticoagulant [...] Patient denies need for refills. Coretta Jalloh [facility] Clinical Pharmacist, Pharmacy Anticoagulation Clinic Pharmacy Anticoagulation Clinic Pager: [phone]. [facility]08-28-[facility] Miscellaneous Notes* Telephone Encounter - Coretta Jalloh RPh - 11/18/2023 4:30 PM EDT [facility] Anticoagulation Episode Summary Anticoagulation Care Providers Provider Role Specialty Phone number Stas Mora MD Referring Family Medicine [phone] Roby Flores is a 88 year old [...] ALLERGIES No Known Allergies Indication for Warfarin: senior care current use of anticoagulant Paroxysmal atrial [...] Pharmacy Anticoagulation Clinic Pharmacy Anticoagulation Clinic Pager: [phone]. documented in this encounterParkwood Hospital08-26-2024 Telephone encounter Note * Telephone Encounter - Elvis Kearney APRN.CNP - 11/16/2023 9:39 AM EDT The following approved medication requests have been transmitted electronically. Requested Prescriptions Pending Prescriptions Disp Refills warfarin (COUMADIN) 1 mg tablet 30 tablet 5 Sig: Take 1 tablet by mouth once daily. Elvis Kearney APRN.CNP [facility]08-26-2024 Miscellaneous Notes* Telephone Encounter - Elvis [...] 16, 2023 9:00 AM documented in this encounterParkwood Hospital08-26-2024 Telephone encounter Note * Telephone Encounter [...] Shahid MA November 16, 2023 9:06 AM [facility]08-26-2024 Telephone encounter Note* Telephone Encounter - [...] Keke Rinaldi November 16, 2023 9:00 AM [facility]07-24-2024 Telephone encounter Note* Telephone Encounter - Coretta Jalloh [facility] - 10/14/2023 4:21 PM EDT [facility]tico[facility] Anticoagulation Episode Summary Anticoagulation Care Providers Provider Role Specialty Phone number Stas Mora MD Referring Family Medicine [phone] Roby Flores is a 88 year old [...] ALLERGIES No Known Allergies Indication for Warfarin: senior care current use of anticoagulant Paroxysmal atrial [...] Pharmacy Anticoagulation Clinic Pharmacy Anticoagulation Clinic Pager: [phone]. [facility]07-24-[facility]24 Miscellaneous Notes* Telephone Encounter - Coretta Jalloh RPh - 10/14/2023 4:21 PM EDT [facility] Anticoagulation Episode Summary Anticoagulation Care Providers Provider Role Specialty Phone number Stas Mora MD Referring Family Medicine [phone] Roby Flores is a 88 year old [...] ALLERGIES No Known Allergies Indication for Warfarin: senior care current use of anticoagulant Paroxysmal atrial [...] Patient denies need for refills. Coretta Jalloh [facility] Clinical Pharmacist, Pharmacy Anticoagulation Clinic Pharmacy Anticoagulation Clinic Pager: [phone]. documented in this encounterParkwood Hospital06-26-[facility] Telephone encounter Note * Telephone Encounter - Colleen Sommer RPh - 09/16/2023 11:15 AM EDT [facility]tico[facility] Clinic Anticoagulation Episode Summary Anticoagulation Care Providers Provider Role Specialty Phone number Stas Mora MD Referring Family Medicine [phone] Roby Flores is a 88 year old [...] Pharmacy Anticoagulation Clinic Pharmacy Antico[facility] Pager: [phone]. [facility] Miscellaneous Notes* Telephone Encounter - Colleen Sommer RPh - 09/16/2023 11:15 AM EDT [facility]tico[facility] Anticoagulation Episode Summary Anticoagulation Care Providers Provider Role Specialty Phone number Stas Mora MD Referring Family Medicine [phone] Roby Flores is a 88 year old [...] Pharmacy Anticoagulation Clinic Pharmacy Anticoagulation Clinic Pager: [phone]. documented in this encounterParkwood Hospital06-25-2024 Instructions* Patient Instructions* Rosie Cruz MA - 09/15/2023 8:48 AM EDT Starting Lasix (Furosemide) 20 mg once daily as needed. You can use the medication on days where swelling is increased. Elevate legs through out the day to help with swelling. Decrease sodium in diet. documented in this encounterParkwood Hospital06-25-2024 History of Present illness Narrative* Stas [...] Coronary atherosclerosis of unspecified type of vessel, tazlina or graft Coronary artery disease Other and [...] Past Histories independently gathered by the clinical support director and the remaining scribed note accurately describes my personal service to the patient. Medical Decision Making: Problems: Low: Acute, uncomplicated illness or injury Risk: Moderate: Drug management Medical Decision Making Level: 3 - Low Stas Moar MD The documentation for this note was completed by Rosie Cruz MA acting as scribe for Stas Mora MD. September 15, 2023 8:45 AM. Rosie Cruz MA documented in this encounterParkwood Hospital06-24-2024 Telephone encounter Note * Telephone Encounter [...] difficulty breathing Protocols used: Leg Swelling and [id number] [facility] Miscellaneous Notes* Telephone Encounter - Marian [...] difficulty breathing Protocols used: Leg Swelling and [id number] * Telephone Encounter - Elana Valdes RN - 09/14/2023 2:52 PM EDT Called and left a voicemail for the Patient and on the Pts girlfriends phone to have the Pt call back and ask for a nurse to receive the providers message. We need more information about his bilateral leg swelling that he was scheduled for tomorrow. Elana Valdes RN documented in this encounterParkwood Hospital06-24-2024 Telephone encounter Note * Telephone Encounter [...] was scheduled for tomorrow. Elana Valdes RN [facility]06[facility] Telephone encounter Note* Telephone Encounter - Coretta Jalloh, [facility] - 09/02/2023 3:08 PM EDT [facility] Anticoagulation Clinic Anticoagulation Episode Summary Anticoagulation Care Providers Provider Role Specialty Phone number Stas Mora MD Referring Family Medicine [phone] Roby Flores is a 88 year old [...] ALLERGIES No Known Allergies Indication for Warfarin: senior care current use of anticoagulant Paroxysmal atrial [...] Pharmacy Anticoagulation Clinic Pharmacy Anticoagulation Clinic Pager: [phone]. [facility] Miscellaneous Notes* Telephone Encounter - Coretta Jalloh RPh - 09/02/2023 3:08 PM EDT [facility] Antico[facility] Clinic Anticoagulation Episode Summary Anticoagulation Care Providers Provider Role Specialty Phone number Stas Mora MD Referring Family Medicine [phone] Roby Flores is a 88 year old [...] ALLERGIES No Known Allergies Indication for Warfarin: director 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 current use of anticoagulant [...] Pharmacy Anticoagulation Clinic Pharmacy Anticoagulation Clinic Pager: [phone]. documented in this encounterParkwood Hospital06-05-2024 Telephone encounter Note * Telephone Encounter - Coretta Jalloh RPh - 08/26/2023 5:03 PM EDT [facility] Anticoagulation Episode Summary Anticoagulation Care Providers Provider Role Specialty Phone number Stas Mora MD Referring Family Medicine [phone] Roby Flores is a 88 year old [...] ALLERGIES No Known Allergies Indication for Warfarin: director 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 current use of anticoagulant [...] Pharmacy Anticoagulation Clinic Pharmacy Anticoagulation Clinic Pager: [phone]. [facility] Miscellaneous Notes* Telephone Encounter - Coretta Jalloh RPh - 08/26/2023 5:03 PM EDT [facility] Anticoagulation Episode Summary Anticoagulation Care Providers Provider Role Specialty Phone number Stas Mora MD Referring Family Medicine [phone] Roby Flores is a 88 year old [...] ALLERGIES No Known Allergies Indication for Warfarin: senior care current use of anticoagulant Paroxysmal atrial [...] Pharmacy Anticoagulation Clinic Pharmacy Anticoagulation Clinic Pager: [phone]. documented in this encounterParkwood Hospital05-29-2024 Telephone encounter Note * Telephone Encounter - Coretta Jalloh RPh - 08/19/2023 5:09 PM EDT [facility] Anticoagulation Episode Summary Anticoagulation Care Providers Provider Role Specialty Phone number Stas Mora MD Referring Family Medicine [phone] Roby Flores is a 88 year old [...] Pharmacy Anticoagulation Clinic Pharmacy Anticoagulation Clinic Pager: [phone]. [facility] Miscellaneous Notes* Telephone Encounter - Coretta Jalloh RPh - 08/19/2023 5:09 PM EDT [facility]ticoagulation Clinic Anticoagulation Episode Summary Anticoagulation Care Providers Provider Role Specialty Phone number Stas Mora MD Referring Family Medicine [phone] Roby Flores is a 88 year old [...] Pharmacy Anticoagulation Clinic Pharmacy Anticoagulation Clinic Pager: [phone]. documented in this encounterParkwood Hospital05-24-2024 History of Present illness Narrative* Stas [...] thinks he is being sued by a jew and thathe was given a letter about it, doesn't know who the finance broker is or where the jew is. states this is not true. He was looking for his brother who lives out of state, thought he was still staying with them, however he has not been up to [place] since Jan. No hallucinations. Is not leaving [...] Coronary atherosclerosis of unspecified type of vessel, tazlina or graft Coronary artery disease Other and [...] Past Histories independently gathered by the clinical support director and the remaining scribed note accurately describes [...] AM. Marta Palacio MA documented in this encounterParkwood Hospital05-22-2024 Telephone encounter Note * Telephone Encounter - Coretta Jalloh [facility] - 08/12/2023 4:27 PM EDT [facility] Anticoagulation Episode Summary Anticoagulation Care Providers Provider Role Specialty Phone number Stas Mora MD Referring Family Medicine [phone] Roby Flores is a 87 year old [...] ALLERGIES No Known Allergies Indication for Warfarin: director 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 current use of anticoagulant [...] Pharmacy Anticoagulation Clinic Pharmacy Anticoagulation Clinic Pager: [phone]. [facility] Miscellaneous Notes* Telephone Encounter - Coretta Jalloh RPh - 08/12/2023 4:27 PM EDT [facility]tico[facility] Clinic Anticoagulation Episode Summary Anticoagulation Care Providers Provider Role Specialty Phone number Stas Mora MD Referring Family Medicine [phone] Roby Flores is a 87 year old [...] ALLERGIES No Known Allergies Indication for Warfarin: director 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 current use of anticoagulant [...] Pharmacy Anticoagulation Clinic Pharmacy Anticoagulation Clinic Pager: [phone]. documented in this encounterParkwood Hospital05-15-2024 Telephone encounter Note * Telephone Encounter - Coretta Jalloh RPh - 08/05/2023 4:41 PM EDT [facility] Anticoagulation Episode Summary Anticoagulation Care Providers Provider Role Specialty Phone number Stas Mora MD Referring Family Medicine [phone] Roby Flores is a 87 year old [...] ALLERGIES No Known Allergies Indication for Warfarin: director 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 current use of anticoagulant [...] Pharmacy Anticoagulation Clinic Pharmacy Anticoagulation Clinic Pager: [phone]. [facility] Miscellaneous Notes* Telephone Encounter - Coretta Jalloh RPh - 08/05/2023 4:41 PM EDT [facility]tico[facility] Anticoagulation Episode Summary Anticoagulation Care Providers Provider Role Specialty Phone number Stas Mora MD Referring Family Medicine [phone] Roby Flores is a 87 year old [...] ALLERGIES No Known Allergies Indication for Warfarin: director 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 current use of anticoagulant [...] INR check scheduled on 08/12/2023 Coretta Jalloh riya Clinical Pharmacist, Pharmacy Anticoagulation Clinic Pharmacy Anticoagulation Clinic Pager: [phone]. documented in this encounterParkwood Hospital05-08-2024 Telephone encounter Note * Telephone Encounter - Elena Lopez RPh - 07/29/2023 3:21 PM EDT [facility]tico[facility] Anticoagulation Episode Summary Anticoagulation Care Providers Provider Role Specialty Phone number Stas Mora MD Referring Family Medicine [phone] Roby Flores is a 87 year old [...] ALLERGIES No Known Allergies Indication for Warfarin: senior care current use of anticoagulant Paroxysmal atrial [...] Patient denies need for refills. Elena Lopez [facility] Clinical Pharmacist, Pharmacy Anticoagulation Clinic Pharmacy Anticoagulation Clinic Pager: [phone]. [facility] Miscellaneous Notes* Telephone Encounter - Elena Lopez RPh - 07/29/2023 3:21 PM EDT [facility] Antico[facility] Anticoagulation Episode Summary Anticoagulation Care Providers Provider Role Specialty Phone number Stas Mora MD Referring Family Medicine [phone] Roby Flores is a 87 year old [...] ALLERGIES No Known Allergies Indication for Warfarin: senior care current use of anticoagulant Paroxysmal atrial [...] Pharmacy Anticoagulation Clinic Pharmacy Anticoagulation Clinic Pager: [phone]. documented in this encounterParkwood Hospital05-01-2024 Telephone encounter Note * Telephone Encounter - Coretta Jalloh RPh - 07/22/2023 4:40 PM EDT [facility] Antico[facility] Anticoagulation Episode Summary Anticoagulation Care Providers Provider Role Specialty Phone number Stas Mora MD Referring Family Medicine [phone] Roby Flores is a 87 year old [...] ALLERGIES No Known Allergies Indication for Warfarin: senior care current use of anticoagulant Paroxysmal atrial [...] Pharmacy Anticoagulation Clinic Pharmacy Anticoagulation Clinic Pager: [phone]. [facility] Miscellaneous Notes* Telephone Encounter - Coretta Jalloh RPh - 07/22/2023 4:40 PM EDT [facility] Anticoagulation Clinic Anticoagulation Episode Summary Anticoagulation Care Providers Provider Role Specialty Phone number Stas Mora MD Referring Family Medicine [phone] Roby Flores is a 87 year old [...] ALLERGIES No Known Allergies Indication for Warfarin: director 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 current use of anticoagulant [...] Pharmacy Anticoagulation Clinic Pharmacy Anticoagulation Clinic Pager: [phone]. documented in this encounterParkwood Hospital04-24-2024 Telephone encounter Note * Telephone Encounter - Coretta Jalloh RPh - 07/15/2023 3:18 PM EDT [facility]tico[facility] Anticoagulation Episode Summary Anticoagulation Care Providers Provider Role Specialty Phone number Stas Mora MD Referring Family Medicine [phone] Roby Flores is a 87 year old [...] ALLERGIES No Known Allergies Indication for Warfarin: senior care current use of anticoagulant Paroxysmal atrial [...] plan. Patient denies need for refills. Coretta Jallho RPh Clinical Pharmacist, Pharmacy Anticoagulation Clinic Pharmacy Anticoagulation Clinic Pager: [phone]. [facility] Miscellaneous Notes* Telephone Encounter - Coretta Jalloh, [facility] - 07/15/2023 3:18 PM EDT [facility] Anticoagulation [facility] Anticoagulation Episode Summary Anticoagulation Care Providers Provider Role Specialty Phone number Stas Mora MD Referring Family Medicine [phone] Roby Flores is a 87 year old [...] ALLERGIES No Known Allergies Indication for Warfarin: senior care current use of anticoagulant Paroxysmal atrial [...] Pharmacy Anticoagulation Clinic Pharmacy Anticoagulation Clinic Pager: [phone]. documented in this encounterParkwood Hospital04-17-2024 Miscellaneous Notes* Telephone Encounter - Coretta Jalloh RPh - 07/08/2023 4:36 PM EDT [facility] Antico[facility] Anticoagulation Episode Summary Anticoagulation Care Providers Provider Role Specialty Phone number Stas Mora MD Referring Family Medicine [phone] Roby Flores is a 87 year old [...] ALLERGIES No Known Allergies Indication for Warfarin: senior care current use of anticoagulant Paroxysmal atrial [...] Pharmacy Anticoagulation Clinic Pharmacy Anticoagulation Clinic Pager: [phone]. documented in this encounterParkwood Hospital04-10-2024 Miscellaneous Notes* Telephone Encounter - Coretta Jalloh RPh - 07/01/2023 5:20 PM EDT [facility] Antico[facility] Anticoagulation Episode Summary Anticoagulation Care Providers Provider Role Specialty Phone number Stas Mora MD Referring Family Medicine [phone] Roby Flores is a 87 year old [...] ALLERGIES No Known Allergies Indication for Warfarin: director 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 current use of anticoagulant [...] Pharmacy Anticoagulation Clinic Pharmacy Anticoagulation Clinic Pager: [phone]. documented in this encounterParkwood Hospital04-04-2024 Telephone encounter Note * Telephone Encounter - Adrian [email or web address] Berry - 06/25/2023 5:14 PM EDT Images [...] and remains on Remote TM list. Elana [email or web address]) [place] [address]-04-2024 Miscellaneous Notes* Telephone Encounter - Adrian [email or web address])Elana - 06/25/2023 5:14 PM EDT Images from [...] remains on Remote TM list. Elana Campbell ([email or web address]) * Telephone Encounter - Stas Mora MD - 06/25/2023 4:44 PM EDT It looks like my office became involved because the on-call doctor was called with his elevated INR. I would prefer he stay with the pharmacy for his routine monitoring. Stas Mora MD * Telephone Encounter - Adrian [email or web address] Berry - 06/25/2023 4:03 PM EDT Pharm [...] this time Please advise. Elana Campbell CPhT (Energy Conservation Engineer) Pharmacy Anticoagulation Clinic documented in this encounterParkwood Hospital04-04-2024 Telephone encounter Note * Telephone Encounter - Stas Mora MD - 06/25/2023 4:44 PM EDT It looks like my office became involved because the on-call doctor was called with his elevated INR. I would prefer he stay with the pharmacy for his routine monitoring. Stas Mora MD [facility]04-04-[facility] Telephone encounter Note* Telephone Encounter - Adrian (Manager Of Sustainability)Elana - 06/25/2023 4:03 PM EDT Pharm Phone [...] this time Please advise. Elana Campbell CPhT (Energy Conservation Engineer) Pharmacy Anticoagulation Clinic [facility]04[facility] Miscellaneous Notes* Telephone Encounter - Jason [...] with VKA drugs, such as warfarin, the [place] [employer] 2012 Guideline recommends [...] etc. Keke Tsang MA documented in this encounterParkwood Hospital03-22-2024 Miscellaneous Notes* Telephone Encounter - Marta [...] no Rosie Cruz Ma documented in this encounterParkwood Hospital03-18-2024 Miscellaneous Notes* Telephone Encounter - Keke [...] Information or narrative: no documented in this encounterParkwood Hospital03-15-2024 Miscellaneous Notes* Telephone Encounter - Halina [...] went over notes below from Jenna Fitzpatrick [employer]. She said no change in his diet, [...] 6.9. Jenna Fitzpatrick APRN.SHEMAR documented in this encounterParkwood Hospital03-15-2024 Miscellaneous Notes* Telephone Encounter - Marta Palacio MA - 06/05/2023 10:15 AM EDT See phone note 06/05/23 with Jenna Fitzpatrick. Marta Palacio MA * Telephone Encounter - Jasmin Bell MD - 06/04/2023 7:59 PM EDT Been trying to call patient at numbers give and goes straight to . Sending [employer] message in case will see that sooner. After multiple attempts, I called [facility]. They cannot call the patient but if the patient calls them, they will conference call with me. documented in this encounterParkwood Hospital03-15-2024 Miscellaneous Notes* Telephone Encounter - Marta [...] message on daughter Anabella's mobile. Sent a [employer] message too. Called [facility] and the will conference call me if patient calls them. documented in this encounterParkwood Hospital03-14-2024 Miscellaneous Notes* Telephone Encounter - Hortencia Winston RN - 06/04/2023 8:[address] Bell has left messages for the patient to call back regarding a critical lab. documented in this encounterParkwood Hospital03-14-2024 Miscellaneous Notes* Telephone Encounter - Minda [...] you. Jenna Fitzpatrick APRN.SHEMAR documented in this encounterParkwood Hospital03-13-2024 Miscellaneous Notes* Telephone Encounter - Coretta Jalloh RPh - 06/03/2023 3:22 PM EDT [facility] Antico[facility] Clinic Anticoagulation Episode Summary Anticoagulation Care Providers Provider Role Specialty Phone number Stas Mora MD Referring Family Medicine [phone] Roby Flores is a 87 year old [...] ALLERGIES No Known Allergies Indication for Warfarin: director 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 current use of anticoagulant [...] Pharmacy Anticoagulation Clinic Pharmacy Anticoagulation Clinic Pager: [phone]. documented in this encounterParkwood Hospital03-11-2024 History of Present illness Narrative* Stas [...] Coronary atherosclerosis of unspecified type of vessel, tazlina or graft Coronary artery disease Other and [...] unspecified vessel or lesion type, unspecified whether tazlina or transplanted heart - ICD9: 414.00, ICD10: [...] Past Histories independently gathered by the clinical support director and the remaining scribed note accurately describes [...] PM. Marta Palacio MA documented in this encounterParkwood Hospital03-06-2024 Miscellaneous Notes* Telephone Encounter - Coretta Jalloh [facility] - 05/27/2023 2:23 PM EST [facility] Anticoagulation Episode Summary Anticoagulation Care Providers Provider Role Specialty Phone number Stas Mora MD Referring [facility] [phone] Roby Flores is a 87 year old year old male patient being evaluated today for a [facility] Anticoagulation Episode Summary Anticoagulation Care Providers Provider Role Specialty Phone number Stas Mora MD Referring [facility] [phone] Roby Flores is a 87 year old [...] ALLERGIES No Known Allergies Indication for Warfarin: director 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 current use of anticoagulant [...] Pharmacy Anticoagulation Clinic Pharmacy Anticoagulation Clinic Pager: [phone]. documented in this encounterParkwood Hospital02-28-2024 Miscellaneous Notes* Telephone Encounter - Coretta Jalloh RPh - 05/20/2023 2:36 PM EST [facility] Anticoagulation Episode Summary Anticoagulation Care Providers Provider Role Specialty Phone number Stsa Mora MD Referring Family Medicine [phone] Roby Flores is a 87 year old [...] ALLERGIES No Known Allergies Indication for Warfarin: director 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 current use of anticoagulant [...] Pharmacy Anticoagulation Clinic Pharmacy Anticoagulation Clinic Pager: [phone]. documented in this encounterParkwood Hospital02-21-2024 Miscellaneous Notes* Telephone Encounter - Senia Phillips RPh - 05/13/2023 4:06 PM EST [facility] Anticoagulation Episode Summary Anticoagulation Care Providers Provider Role Specialty Phone number Stas Mora MD Referring Family Medicine [phone] Roby Flores is a 87 year old [...] ALLERGIES No Known Allergies Indication for Warfarin: director 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 current use of anticoagulant [...] Pharmacy Anticoagulation Clinic Pharmacy Anticoagulation Clinic Pager: [phone]. documented in this encounterParkwood Hospital02-14-2024 Miscellaneous Notes* Telephone Encounter - Coretta Jalloh RPh - 05/06/2023 3:14 PM EST [facility] An[facility] Anticoagulation Episode Summary Anticoagulation Care Providers Provider Role Specialty Phone number Stas Mora MD Referring Family Medicine [phone] Roby Flores is a 87 year old [...] ALLERGIES No Known Allergies Indication for Warfarin: senior care current use of anticoagulant Paroxysmal atrial [...] INR check scheduled on 05/13/2023 JENNIFER for Maria Guadalupe. Coretta Jalloh RPh Clinical Pharmacist, Pharmacy Anticoagulation Clinic Pharmacy Anticoagulation Clinic Pager: [phone]. documented in this encounterParkwood Hospital02-07-2024 Miscellaneous Notes* Telephone Encounter - Coretta Jalloh RPh - 04/29/2023 4:00 PM EST [facility]tico[facility] Anticoagulation Episode Summary Anticoagulation Care Providers Provider Role Specialty Phone number Stas Mora MD Referring Family Medicine [phone] Roby Flores is a 87 year old [...] ALLERGIES No Known Allergies Indication for Warfarin: director 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 current use of anticoagulant [...] Pharmacy Anticoagulation Clinic Pharmacy Anticoagulation Clinic Pager: [phone]. documented in this encounterParkwood Hospital12-01-2023 Miscellaneous Notes* Telephone Encounter - Elise Paredes, [facility] - 02/20/2023 3:37 PM EST [facility] Anticoagulation Episode Summary Anticoagulation Care Providers Provider Role Specialty Phone number Stas Mora MD Referring Family Medicine [phone] Roby Flores is a 87 year old [...] ALLERGIES No Known Allergies Indication for Warfarin: director 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 current use of anticoagulant [...] Patient denies need for refills. Elise Paredes [facility] Clinical Pharmacist, Pharmacy Anticoagulation Clinic Pharmacy Anticoagulation Clinic Pager: [phone]. documented in this encounterParkwood Hospital11-28-2023 Miscellaneous Notes* Telephone Encounter - Franca [...] evaluation Stas Mora MD documented in this encounterParkwood Hospital11-28-2023 History of Present illness Narrative* Janelle [...] 17, 2023 7:43 AM documented in this encounterParkwood Hospital11-27-2023 History of Present illness Narrative* Stas [...] Recheck in 1 week. Below copied from [employer]: Chief Complaint: Fatigue Informant: patient Onset/Context/Timing Onset: [...] Coronary atherosclerosis of unspecified type of vessel, tazlina or graft Coronary artery disease Other and [...] Past Histories independently gathered by the clinical support director and the remaining scribed note accurately describes [...] PM. Marta Palacio Ma documented in this encounterParkwood Hospital11-24-2023 Miscellaneous Notes* Telephone Encounter - Albaro Paredesdong Brady, [facility] - 02/13/2023 3:56 PM EST [facility] Anticoagulation Episode Summary Anticoagulation Care Providers Provider Role Specialty Phone number Stas Mora MD Referring Family Medicine [phone] Roby Flores is a 87 year old [...] ALLERGIES No Known Allergies Indication for Warfarin: senior care current use of anticoagulant Paroxysmal atrial [...] INR check scheduled on 02/20/2023 Elise Paredes [facility] Clinical Pharmacist, Pharmacy Anticoagulation Clinic Pharmacy Anticoagulation Clinic Pager: [phone]. documented in this encounterParkwood Hospital11-17-2023 Miscellaneous Notes* Telephone Encounter - Senia Phillips [facility] - 02/06/2023 4:28 PM EST [facility] Anticoagulation Episode Summary Anticoagulation Care Providers Provider Role Specialty Phone number Stas Mora MD Referring Family Medicine [phone] Roby Flores is a 87 year old [...] ALLERGIES No Known Allergies Indication for Warfarin: senior care current use of anticoagulant Paroxysmal atrial [...] Pharmacy Anticoagulation Clinic Pharmacy Anticoagulation Clinic Pager: [phone]. documented in this encounterParkwood Hospital10-06-2023 Miscellaneous Notes* Telephone Encounter - Senia Phillips RPh - 12/26/2022 3:04 PM EDT [facility] Anticoagulation Episode Summary Anticoagulation Care Providers Provider Role Specialty Phone number Stas Mora MD Referring Family Medicine [phone] Roby Flores is a 87 year old [...] ALLERGIES No Known Allergies Indication for Warfarin: senior care current use of anticoagulant Paroxysmal atrial fibrillation (hcc) Anticoagulation Episode Summary Current INR goal: 2.0-3.0 Assessment: INR result of 2.5 is therapeutic Plan: Current Warfarin Dosing As of 12/26/2022 Full warfarin instructions: 2.5 mg every day Sent Expert360 message Advised patient to continue current weekly dose as noted above Next lab INR check scheduled on 01/09/2023 Senia Phillips RPh Clinical Pharmacist, Pharmacy Anticoagulation Clinic Pharmacy Anticoagulation Clinic Pager: [phone]. documented in this encounterParkwood Hospital09-29-2023 Miscellaneous Notes* Telephone Encounter - Senia Phillips RPh - 12/19/2022 4:30 PM EDT [facility] Anticoagulation Episode Summary Anticoagulation Care Providers Provider Role Specialty Phone number Stas Moar MD Referring Family Medicine [phone] Roby Flores is a 87 year old [...] ALLERGIES No Known Allergies Indication for Warfarin: director 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 current use of anticoagulant Paroxysmal atrial fibrillation (hcc) Anticoagulation Episode Summary Current INR goal: 2.0-3.0 Assessment: INR result of 2.0 is therapeutic Plan: Current Warfarin Dosing As of 12/19/2022 Full warfarin instructions: 2.5 mg every day Sent Expert360 message Advised patient to continue current weekly dose as noted above Next lab INR check scheduled on 01/02/2023 Senia Phillips RPh Clinical Pharmacist, Pharmacy Anticoagulation Clinic Pharmacy Anticoagulation Clinic Pager: [phone]. documented in this encounterParkwood Hospital09-22-2023 Miscellaneous Notes* Telephone Encounter - Senia Phillips RPh - 12/12/2022 4:01 PM EDT [facility] Anticoagulation Episode Summary Anticoagulation Care Providers Provider Role Specialty Phone number Stas Mora MD Referring Family Medicine [phone] Roby Flores is a 87 year old [...] ALLERGIES No Known Allergies Indication for Warfarin: senior care current use of anticoagulant Paroxysmal atrial [...] Pharmacy Anticoagulation Clinic Pharmacy Anticoagulation Clinic Pager: [phone]. documented in this encounterParkwood Hospital09-01-2023 Miscellaneous Notes* Telephone Encounter - Jeimy Duong RPh - 11/21/2022 2:38 PM EDT [facility] Anticoagulation Episode Summary Anticoagulation Care Providers Provider Role Specialty Phone number Stas Mora MD Referring Family Medicine [phone] Roby Flores is a 87 year old [...] Pharmacy Anticoagulation Clinic Pharmacy Anticoagulation Clinic Pager: [phone]. documented in this encounterParkwood Hospital08-28-2023 Hospital Discharge instructions Patient Education 11/17/2022 [...] Wound changes colors Numbness around the wound 7221-9017 [employer] [address], [place] [address]. All rights reserved. This information is not [...] the ears or bruising around the eyes 7142-7112 [employer]. [address] [place] [address]. All rights reserved. This information is not intended as a substitute for professional medical care. Always follow yourhealthcare professional's instructions. Follow Up Care 11/17/2022 15:05:08 With:Call Physician Referral Address:Unknown When:2-4 days [facility] 08-28-2023 Note Discharge Instructions Thank you for allowing [facility] to assist you with your healthcare needs. [...] Wound changes colors Numbness around the wound 9946-4054 [employer]. [address] [place] [address]. All rights reserved. This information is not [...] the ears or bruising around the eyes 6731-9[address] [employer]. [address] [place] [address]. All rights reserved. This information is not intended as a substitute for professional medical care. Always follow yourhealthcare professional's instructions. Additional Information VACCINATE! IT SAVES LIVES! Members of the community who have not yet received the COVID-19 vaccine and would like to receive it can visit one of [facility] vaccine clinics. There are many vaccine clinic locations within the [facility]. For locations and available times, please visit www.gettheshot.coronavirus.[place].gov/. It is important to note that some COVID mobile vaccine clinics are held outdoors and may be canceled in rainy or stormy conditions. To learn more about pediatric vaccinations (ages 5-11), we invite you to visit the [facility] webpage. [email or web address]://[email or web address]/[email or web address]-[email or web address]-[email or web address]-[email or web address] stions.htmlTo learn more about the COVID-19 vaccine, we invite you to visit the CDC website for a list of frequently asked questions. https://www.cdc.gov/coronavirus/2019-ncov/vaccines/faq.html [facility] Patient Portal Access Instructions: Stay connected with your healthcare team and access your personal medical information anytime with the [facility] Patient Portal. If you would like a full copy of your medical records please contact the [facility] Medical Records Department Thursday through Thursday between 8a.m. and 4:30p.m. Please follow the directions below to access the portal: 1.Access the email account you provided upon registration to the [facility].2.Look for an invitation email from [facility].3.Open the email and access the invitation link: Accept Invitation to [facility]4.Fill in the required العلي to create your account. Sign into [email or web address] with your username and password that you [...] you will allow to register on the [facility] Patient Portal for access to your information. You can also access the [facility] Patient Portal on the [address] jonathon. Simply click on "Health Records" under "HealthData" and then click on the [employer] logo. HOW TO SAFELY DISPOSE OF PRESCRIPTION [...] Call your local pharmacy or go to http://bit.Everplaces/5N0Mj1q to find one close to you.3.Make use of household items: Use cat litter or old coffee grounds to dispose medications if other options arenot available. Mix your drugs with these household products, seal them in an airtight container andthrow it into the garbage. Call [facility]: [phone] to be sure your drugs can be [...] aware that I should contact my doctor. Patient/[facility] Signature: Date/Time: Relationship to Patient: Witness Name/Signature: Date/Time: [facility]08-28-2023 Note ORIGINAL EXAMINATION: CT OF THE [...] Sign Date: 11/17/2022 4:26:20 PM Ordering Provider: [facility]08-18-2023 Miscellaneous Notes* Telephone Encounter - Senia Phillips riya - 11/07/2022 3:22 PM EDT [facility] Anticoagulation Clinic Anticoagulation Episode Summary Anticoagulation Care Providers Provider Role Specialty Phone number Stas Mora MD Referring Family Medicine [phone] Roby Flores is a 87 year old [...] ALLERGIES No Known Allergies Indication for Warfarin: director 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 current use of anticoagulant Paroxysmal atrial fibrillation (hcc) Anticoagulation Episode Summary Current INR goal: 2.0-3.0 Assessment: INR result of 2.2 is therapeutic Plan: Current Warfarin Dosing As of 11/07/2022 Full warfarin instructions: 2.5 mg every day Sent Expert360 message Advised patient to continue current weekly dose as noted above Next lab INR check scheduled on 11/21/2022 Senia Phillips RPh Clinical Pharmacist, Pharmacy Anticoagulation Clinic Pharmacy Anticoagulation Clinic Pager: [phone]. documented in this encounterParkwood Hospital08-11-2023 Miscellaneous Notes* Telephone Encounter - Senia Phillips RPh - 10/31/2022 2:29 PM EDT Patient due to test INR today. Will continue to monitor for results. Senia Phillips RPh documented in this encounterParkwood Hospital08-04-2023 Miscellaneous Notes* Telephone Encounter - Senia Phillips RPh - 10/24/2022 3:13 PM EDT [facility]tico[facility] Anticoagulation Episode Summary Anticoagulation Care Providers Provider Role Specialty Phone number Stas Mora MD Referring Family Medicine [phone] Roby Flores is a 87 year old [...] ALLERGIES No Known Allergies Indication for Warfarin: director 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 current use of anticoagulant Paroxysmal atrial fibrillation (hcc) Anticoagulation Episode Summary Current INR goal: 2.0-3.0 Assessment: INR result of 2.5 is therapeutic Plan: Current Warfarin Dosing As of 10/24/2022 Full warfarin instructions: 2.5 mg every day Sent Expert360 message Advised patient to decrease total weekly regimen to better reflect overall dose given past few weeks Next lab INR check scheduled on 10/31/2022 Senia Phillips RPh Clinical Pharmacist, Pharmacy Anticoagulation Clinic Pharmacy Anticoagulation Clinic Pager: [phone]. documented in this encounterParkwood Hospital07-28-2023 Miscellaneous Notes* Telephone Encounter - Jason [...] call from today by the [facility]. They spoke with pt at [phone] and gave pt instructions on what to do. Halina aCstelan RN documented in this encounterParkwood Hospital07-28-2023 Miscellaneous Notes* Telephone Encounter - Yomi Wills [facility] - 10/17/2022 3:43 PM EDT [facility] Pharmacy Anticoagulation Clinic Anticoagulation Episode Summary Anticoagulation Care Providers Provider Role Specialty Phone number Stas Mora MD Referring Family Medicine [phone] Roby Flores is a 87 year old [...] ALLERGIES No Known Allergies Indication for Warfarin: senior care current use of anticoagulant Paroxysmal atrial [...] Patient denies need for refills. Yomi Wills [facility] Clinical Pharmacist, Pharmacy Anticoagulation Clinic Pharmacy Anticoagulation Clinic Pager: [phone]. documented in this encounterParkwood Hospital07-07-2023 Miscellaneous Notes* Telephone Encounter - Jeimy Duong RPh - 09/26/2022 2:11 PM EDT [facility]tico[facility] Anticoagulation Episode Summary Anticoagulation Care Providers Provider Role Specialty Phone number Stas Mora MD Referring Family Medicine [phone] Roby Flores is a 87 year old [...] Pharmacy Anticoagulation Clinic Pharmacy Anticoagulation Clinic Pager: [phone]. documented in this encounterParkwood Hospital06-23-2023 Miscellaneous Notes* Telephone Encounter - Jeimy Duong RPh - 09/12/2022 2:50 PM EDT [facility] Anticoagulation Episode Summary Anticoagulation Care Providers Provider Role Specialty Phone number Stas Mora MD Referring Family Medicine [phone] Roby Flores is a 87 year old [...] accidental over dosage, changes in warfarin tablet color/shape/flow specialist, eating less green vegetables, recent illness/fever/nausea/vomiting/diarrhea, increased [...] Pharmacy Anticoagulation Clinic Pharmacy Anticoagulation Clinic Pager: [phone]. documented in this encounterParkwood Hospital06-06-2023 Instructions* Patient Instructions* Marta Palacio Ma - 08/26/2022 1:36 PM EDT Please check your medications when you get home and make sure that your medications match our list. documented in this encounterParkwood Hospital06-06-2023 History of Present illness Narrative* Stas Mora MD - 08/26/2022 1:20 PM EDT Medical B eligibilty date 1999 Date of last exam 09/05/2021 PAST MEDICAL HISTORY Diagnosis Date Coronary atherosclerosis of unspecified type of vessel, tazlina or graft Coronary artery disease Other and [...] List of current specialists seen: Dr. Bobby F Pharmacist manage INR End of Live Planning discussed including patients advanced directive wishes: Yes I am willing to follow [place] advanced directives. Depression screen He in the [...] Past Histories independently gathered by the clinical support director and the remaining scribed note accurately describes my personal service to the patient. Stas Mora MD The documentation for this note was completed by Marta Palacio Ma acting as scribe for Stas Mora MD. August 26, 2022 1:17 PM. Marta Palacio Ma documented in this encounterParkwood Hospital06-02-2023 Miscellaneous Notes* Telephone Encounter - Senia Phillips [facility] - 08/22/2022 2:50 PM EDT [facility] Antico[facility] Clinic Anticoagulation Episode Summary Anticoagulation Care Providers Provider Role Specialty Phone number Stas Mora MD Referring Family Medicine [phone] Roby Flores is a 87 year old [...] ALLERGIES No Known Allergies Indication for Warfarin: director 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 current use of anticoagulant Paroxysmal atrial fibrillation (hcc) Anticoagulation Episode Summary Current INR goal: 2.0-3.0 Assessment: INR result of 2.4 is therapeutic Plan: Current Warfarin Dosing As of 08/22/2022 Full warfarin instructions: 3.75 mg every Fri; 2.5 mg all other days Sent Expert360 message Advised patient to continue current weekly dose as noted above Next lab INR check scheduled on 08/29/2022 Senia Phillips RPh Clinical Pharmacist, Pharmacy Anticoagulation Clinic Pharmacy Anticoagulation Clinic Pager: [phone]. documented in this encounterParkwood Hospital04-28-2023 Miscellaneous Notes* Telephone Encounter - Senia Phillips RPh - 07/18/2022 3:29 PM EDT [facility] Anticoagulation Clinic Anticoagulation Episode Summary Anticoagulation Care Providers Provider Role Specialty Phone number Stas Mora MD Referring Family Medicine [phone] Roby Flores is a 86 year old [...] ALLERGIES No Known Allergies Indication for Warfarin: senior care current use of anticoagulant Paroxysmal atrial fibrillation (hcc) Anticoagulation Episode Summary Current INR goal: 2.0-3.0 Assessment: INR result of 2.1 is therapeutic Plan: Current Warfarin Dosing As of 07/18/2022 Full warfarin instructions: 2.5 mg every day Sent Expert360 message Advised patient to continue current weekly dose as noted above Next lab INR check scheduled on 08/01/2022 Senia Phillips riya Clinical Pharmacist, Pharmacy Anticoagulation Clinic Pharmacy Anticoagulation Clinic Pager: [phone]. documented in this encounterParkwood Hospital04-14-2023 Miscellaneous Notes* Telephone Encounter - Lety Gandara [facility] - 07/04/2022 3:46 PM EDT [facility]tico[facility] Anticoagulation Episode Summary Anticoagulation Care Providers Provider Role Specialty Phone number Stas Mora MD Referring Family Medicine [phone] Roby Flores is a 86 year old [...] ALLERGIES No Known Allergies Indication for Warfarin: senior care current use of anticoagulant Paroxysmal atrial [...] Patient denies need for refills. Lety Gandara RP Clinical Pharmacist, Pharmacy Anticoagulation Clinic Pharmacy Anticoagulation Clinic Pager: [phone]. documented in this encounterParkwood Hospital04-03-2023 Miscellaneous Notes* Telephone Encounter - Elvis Kearney APRN.CNP - 06/23/2022 10:17 AM EDT The following approved medication requests have been transmitted electronically. Requested Prescriptions Pending Prescriptions Disp Refills warfarin (COUMADIN) 2.5 mg tablet [Pharmacy Med Name: WARFARIN SODIUM 2.5 MG TABLET] 135 tablet 3 Sig: TAKE 5 MG EVERY MON, DIXIE 2.5 MG ALL OTHER DAYS Elvis Kearney APRN.CNP documented in this encounterParkwood Hospital03-31-2023 Miscellaneous Notes* Telephone Encounter - Senia Phillips RPh - 06/20/2022 4:46 PM EDT [facility] Anticoagulation Clinic Anticoagulation Episode Summary Anticoagulation Care Providers Provider Role Specialty Phone number Stas Mora MD Referring Family Medicine [phone] Roby Flores is a 86 year old [...] ALLERGIES No Known Allergies Indication for Warfarin: director 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 current use of anticoagulant [...] INR check scheduled on 07/04/2022 Senia Phillips [facility] Clinical Pharmacist, Pharmacy Anticoagulation Clinic Pharmacy Anticoagulation Clinic Pager: [phone]. documented in this encounterParkwood Hospital03-17-2023 Miscellaneous Notes* Telephone Encounter - Senia Phillips RPh - 06/06/2022 4:18 PM EDT [facility] Anticoagulation Clinic Anticoagulation Episode Summary Anticoagulation Care Providers Provider Role Specialty Phone number Stas Mora MD Referring Family Medicine [phone] Roby Flores is a 86 year old [...] ALLERGIES No Known Allergies Indication for Warfarin: senior care current use of anticoagulant Paroxysmal atrial fibrillation (hcc) Anticoagulation Episode Summary Current INR goal: 2.0-3.0 Assessment: INR result of 2.6 is therapeutic Plan: Current Warfarin Dosing As of 06/06/2022 Full warfarin instructions: 2.5 mg every day Sent Expert360 message Advised patient to continue current weekly dose as noted above Next lab INR check scheduled on 06/20/2022 Senia Phillips RPh Clinical Pharmacist, Pharmacy Anticoagulation Clinic Pharmacy Anticoagulation Clinic Pager: [phone]. documented in this encounterParkwood Hospital03-10-2023 Miscellaneous Notes* Telephone Encounter - Neeru Rice LPN - 05/30/2022 3:02 PM EST Pharmacists manage INR documented in this encounterParkwood Hospital03-02-2023 Miscellaneous Notes* Telephone Encounter - Halina [...] you. Jenna Fitzpatrick APRN.SHEMAR documented in this encounterParkwood Hospital03-01-2023 Miscellaneous Notes* Telephone Encounter - Judy [...] hip/leg 10. : na Protocols used: Hip Umwy-ORBNS-DX, Hip Krgjnn-OEGZS-VS documented in this encounterParkwood Hospital03-01-2023 Miscellaneous Notes* Telephone Encounter - Fani Grace RN - 05/21/2022 12:22 PM EST Patient disconnected during transferred, called multiple time with no answer. documented in this encounterParkwood Hospital02-27-2023 Miscellaneous Notes* Telephone Encounter - Paige [...] instructions. Franca Cohen LPN documented in this encounterParkwood Hospital02-24-2023 Miscellaneous Notes* Telephone Encounter - Senia Phillips RPh - 05/16/2022 5:10 PM EST Patient due to test INR today. Will continue to monitor for results. Senia Phillips RPh documented in this encounterParkwood Hospital02-10-2023 Miscellaneous Notes* Telephone Encounter - Senia Phillips RPh - 05/02/2022 3:06 PM EST [facility] Anticoagulation Episode Summary Anticoagulation Care Providers Provider Role Specialty Phone number Stas Mora MD Referring Family Medicine [phone] Royb Flores is a 86 year old year old male patient being evaluated today for a Telemanagement visit. Patient is currently on the following anticoagulant(s) Warfarin. Labs PT INR (no units) Date Value 05/15/2021 2.3 04/17/2021 1.9 03/13/2021 Test sent to [facility]. INR (no units) Date Value 05/02/2022 2.1 [...] ALLERGIES No Known Allergies Indication for Warfarin: senior care current use of anticoagulant Paroxysmal atrial fibrillation (hcc) Anticoagulation Episode Summary Current INR goal: 2.0-3.0 Assessment: INR result of 2.1 is therapeutic Plan: Current Warfarin Dosing As of 05/02/2022 Full warfarin instructions: 2.5 mg every day Sent Expert360 message Advised patient to continue current weekly dose as noted above Next lab INR check scheduled on 05/16/2022 Senia Phillips RPh Clinical Pharmacist, Pharmacy Anticoagulation Clinic Pharmacy Anticoagulation Clinic Pager: [phone]. documented in this encounterParkwood Hospital01-27-2023 Miscellaneous Notes* Telephone Encounter - Senia Phillips RPh - 04/18/2022 4:25 PM EST [facility] Anticoagulation Episode Summary Anticoagulation Care Providers Provider Role Specialty Phone number Stas Mora MD Referring Family Medicine [phone] Roby Flores is a 86 year old year old male patient being evaluated today for a Telemanagement visit. Patient is currently on the following anticoagulant(s) Warfarin. Labs PT INR (no units) Date Value 05/15/2021 2.3 04/17/2021 1.9 03/13/2021 Test sent to [facility]. INR (no units) Date Value 04/18/2022 2.4 [...] ALLERGIES No Known Allergies Indication for Warfarin: director 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 current use of anticoagulant Paroxysmal atrial fibrillation (hcc) Anticoagulation Episode Summary Current INR goal: 2.0-3.0 Assessment: INR result of 2.4 is therapeutic Plan: Current Warfarin Dosing As of 04/18/2022 Full warfarin instructions: 2.5 mg every day; Starting 04/18/2022 Sent Expert360 message Advised patient to continue current weekly dose as noted above Next lab INR check scheduled on 05/02/2022 Senia Phillips [facility] Clinical Pharmacist, Pharmacy Anticoagulation Clinic Pharmacy Anticoagulation Clinic Pager: [phone]. documented in this encounterParkwood Hospital01-13-2023 Miscellaneous Notes* Telephone Encounter - Elise Paredes [facility] - 04/04/2022 4:09 PM EST [facility] Anticoagulation Episode Summary Anticoagulation Care Providers Provider Role Specialty Phone number Stas Mora MD Referring Family Medicine [phone] Roby Flores is a 86 year old year old male patient being evaluated today for a Lab INR. Patient is currently on the following anticoagulant(s) Warfarin. Labs PT INR (no units) Date Value 05/15/2021 2.3 04/17/2021 1.9 03/13/2021 Test sent to [facility]. INR (no units) Date Value 04/04/2022 3.3 [...] ALLERGIES No Known Allergies Indication for Warfarin: senior care current use of anticoagulant Paroxysmal atrial [...] Pharmacy Anticoagulation Clinic Pharmacy Anticoagulation Clinic Pager: [phone]. documented in this encounterParkwood Hospital01-09-2023 Miscellaneous Notes* Telephone Encounter - Rosie Cruz Ma - 03/31/2022 5:12 PM EST [facility] and Imm. PerPCP okay to fax back requested records. Faxed back to [facility] at F#: [phone]. Rosie Cruz Ma documented in this encounterParkwood Hospital12-30-2022 Miscellaneous Notes* Telephone Encounter - Carmelina Cruz RPh - 03/21/2022 4:05 PM EST [facility] Anticoagulation Episode Summary Anticoagulation Care Providers Provider Role Specialty Phone number Stas Mora MD Referring Family Medicine [phone] Roby Flores is a 86 year old year old male patient being evaluated today for a Telemanagement visit. Patient is currently on the following anticoagulant(s) Warfarin. Labs PT INR (no units) Date Value 05/15/2021 2.3 04/17/2021 1.9 03/13/2021 Test sent to [facility]. INR (no units) Date Value 03/21/2022 2.9 [...] ALLERGIES No Known Allergies Indication for Warfarin: director 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 current use of anticoagulant Paroxysmal atrial fibrillation (hcc) Anticoagulation Episode Summary Current INR goal: 2.0-3.0 Assessment: INR result of 2.9 is therapeutic Plan: Current Warfarin Dosing As of 03/21/2022 Full warfarin instructions: 2.5 mg every day; Starting 03/21/2022 Sent Expert360 message Advised patient to continue current weekly dose as noted above Next home INR check scheduled on 04/04/2022 Carmelina Cruz RPh Clinical Pharmacist, Pharmacy Anticoagulation Clinic Pharmacy [facility] Pager: [phone]. * Telephone Encounter - Carmelina Cruz RPh - 03/21/2022 3:12 PM EST Patient due to test INR today. Will continue to monitor for results. Carmelina Cruz RPh documented in this encounterPark[facility]12-[facility]-2022 Miscellaneous Notes* Telephone Encounter - Oliva [...] whatever he wanted to. documented in this encounterParkwood Hospital10-31-2022 Miscellaneous Notes* Telephone Encounter - Paige Hickman RPh - 01/20/2022 3:55 PM EDT [facility] Anticoagulation Episode Summary Anticoagulation Care Providers Provider Role Specialty Phone number Stas Mora MD Referring Family Medicine [phone] Roby Flores is a 86 year old year old male patient being evaluated today for a Telemanagement visit. Patient is currently on the following anticoagulant(s) Warfarin. Labs PT INR (no units) Date Value 05/15/2021 2.3 04/17/2021 1.9 03/13/2021 Test sent to [facility]. INR (no units) Date Value 01/20/2022 1.7 [...] instructed to call [facility] at [phone] with any questionsor concerns. Paige Hickman RPh Clinical Pharmacist, Pharmacy Anticoagulation Clinic Pharmacy Anticoagulation Clinic Pager: [phone] documented in this encounterParkwood Hospital10-28-2022 Miscellaneous Notes* Telephone Encounter - Senia [...] the providers message. Sent information as a MyChart message as well. Elana Valdes RN * [...] to contact patient with no answer at [phone]. Current dose of coumadin is: 2.5 mg every day . Previous INR (date and result): 01/03/22 2.4 documented in this encounterParkwood Hospital10-24-2022 Miscellaneous Notes* Telephone Encounter - Jenna [...] tablet by mouth once daily. Jenna Fitzpatrick APRN.[employer] * Telephone Encounter - López Mckenna LPN [...] advise. López Mckenna LPN documented in this encounterParkwood Hospital10-14-2022 Miscellaneous Notes* Telephone Encounter - Senia Phillips RP - 01/03/2022 4:11 PM EDT [facility] Anticoagulation Episode Summary Anticoagulation Care Providers Provider Role Specialty Phone number Stas Mora MD Referring Family Medicine [phone] Roby Flores is a 86 year old year old male patient being evaluated today for a Telemanagement visit. Patient is currently on the following anticoagulant(s) Warfarin. Labs PT INR (no units) Date Value 05/15/2021 2.3 04/17/2021 1.9 03/13/2021 Test sent to [facility]. INR (no units) Date Value 01/03/2022 2.4 [...] ALLERGIES No Known Allergies Indication for Warfarin: senior care current use of anticoagulant Paroxysmal atrial fibrillation (hcc) Anticoagulation Episode Summary Current INR goal: 2.0-3.0 Assessment: INR result of 2.4 is therapeutic Plan: Current Warfarin Dosing As of 01/03/2022 Full warfarin instructions: 2.5 mg every day Sent Expert360 message Advised patient to continue current weekly dose as noted above Next lab INR check scheduled on 01/17/2022 Senia Phillips RPh Clinical Pharmacist, Pharmacy Anticoagulation Clinic Pharmacy Antico[facility] Clinic Pager: [phone]. documented in this encounterParkwood Hospital10-14-2022 Miscellaneous Notes* Telephone Encounter - Marta Palacio Ma - 01/03/2022 10:49 AM EDT Pt notified of results via Expert360. Marta Palacio Ma * Telephone Encounter - Stas Mora MD - 01/02/2022 6:07 PM EDT Please notify patient that his thyroid ultrasound looks OK, the nodules are all small, appear normal, and do not need any further evaluation pr follow up. Stas Mora MD documented in this encounterParkwood Hospital10-06-2022 History of Present illness Narrative* Stas Mora MD - 12/26/2021 11:20 AM EDT Chief Complaint Patient presents with: Hospital F/U [facility] Roby Flores is a 86 year [...] year. Below copied from [facility] [employer]: HPI History of Present Illness Chief Complaint: [...] extremities. 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 Dorsi and plantar flexion intact. [...] Chronic anticoagulation: Status: Acute Code(s): Z79.01 - director 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 Medications at Discharge [...] symptoms resolved. Hospital Course: 1. TIA/paroxysmal A. [id number]-old male presented with right-sided weakness and aphasia, [...] Coronary atherosclerosis of unspecified type of vessel, tazlina or graft Coronary artery disease Other and [...] unspecified vessel or lesion type, unspecified whether tazlina or transplanted heart - ICD9: 414.00, ICD10: I25.10 Continue current medications. Follow up in Dec as scheduled with fasting labs prior. I agree with the Chief Complaint, ROS, and Past Histories independently gathered by the clinical support director and the remaining scribed note accurately describes [...] AM. Marta Palacio Ma documented in this encounterParkwood Hospital09-30-2022 Miscellaneous Notes* Telephone Encounter - Senia Phillips [facility] - 12/20/2021 4:39 PM EDT [facility] Anticoagulation Episode Summary Anticoagulation Care Providers Provider Role Specialty Phone number Stas Mora MD Referring Family Medicine [phone] Roby Flores is a 86 year old year old male patient being evaluated today for a Telemanagement visit. Patient is currently on the following anticoagulant(s) Warfarin. Labs PT INR (no units) Date Value 05/15/2021 2.3 04/17/2021 1.9 03/13/2021 Test sent to [facility]. INR (no units) Date Value 12/20/2021 2.1 [...] ALLERGIES No Known Allergies Indication for Warfarin: director 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 current use of anticoagulant Paroxysmal atrial fibrillation (hcc) Anticoagulation Episode Summary Current INR goal: 2.0-3.0 Assessment: INR result of 2.1 is therapeutic Plan: Current Warfarin Dosing As of 12/20/2021 Full warfarin instructions: 2.5 mg every day Sent Expert360 message Advised patient to continue current weekly dose as noted above Next lab INR check scheduled on 01/03/2022 Senia Phillips RPh Clinical Pharmacist, Pharmacy Anticoagulation Clinic Pharmacy Antico[facility] Pager: [phone]. documented in this encounterParkwood Hospital09-16-2022 Miscellaneous Notes* Telephone Encounter - Senia Phillips RPh - 12/06/2021 4:29 PM EDT [facility] Anticoagulation Episode Summary Anticoagulation Care Providers Provider Role Specialty Phone number Stas Mora MD Referring [facility] [phone] Roby Flores is a 86 year old year old male patient being evaluated today for a Telemanagement visit. Patient is currently on the following anticoagulant(s) Warfarin. Labs PT INR (no units) Date Value 05/15/2021 2.3 04/17/2021 1.9 03/13/2021 Test sent to [facility]. INR (no units) Date Value 12/06/2021 3.8 [...] ALLERGIES No Known Allergies Indication for Warfarin: director 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 current use of anticoagulant [...] Pharmacy Anticoagulation Clinic Pharmacy Anticoagulation Clinic Pager: [phone]. documented in this encounterParkwood Hospital09-02-2022 Miscellaneous Notes* Telephone Encounter - Janice Huang RPh - 11/22/2021 5:17 PM EDT [facility] Anticoagulation Episode Summary Anticoagulation Care Providers Provider Role Specialty Phone number Stas Mora MD Referring [facility] [phone] Roby Flores is a 86 year old year old male patient being evaluated today for a Telemanagement visit. Patient is currently on the following anticoagulant(s) Warfarin. Labs PT INR (no units) Date Value 05/15/2021 2.3 04/17/2021 1.9 03/13/2021 Test sent to [facility]. INR (no units) Date Value 11/22/2021 2.4 [...] ALLERGIES No Known Allergies Indication for Warfarin: director 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 current use of anticoagulant [...] Advised pt to Call Coumadin Clinic at [phone] to confirm dosing and follow-up Janice Huang RPh Clinical Pharmacist, Pharmacy Anticoagulation Clinic Pharmacy Anticoagulation Clinic Pager: [phone]. documented in this encounterParkwood Hospital08-19-2022 Miscellaneous Notes* Telephone Encounter - Senia Phillips RPh - 11/08/2021 5:01 PM EDT [facility] Anticoagulation Episode Summary Anticoagulation Care Providers Provider Role Specialty Phone number Stas Mora MD Referring [facility] [phone] Roby Flores is a 86 year old year old male patient being evaluated today for a Telemanagement visit. Patient is currently on the following anticoagulant(s) Warfarin. Labs PT INR (no units) Date Value 05/15/2021 2.3 04/17/2021 1.9 03/13/2021 Test sent to [facility]. INR (no units) Date Value 11/08/2021 2.8 [...] ALLERGIES No Known Allergies Indication for Warfarin: director 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 current use of anticoagulant Paroxysmal atrial fibrillation (hcc) Anticoagulation Episode Summary Current INR goal: 2.0-3.0 Assessment: INR result of 2.8 is therapeutic Plan: Current Warfarin Dosing As of 11/08/2021 Full warfarin instructions: 2.5 mg every day Sent Expert360 message Advised patient to continue current weekly dose as noted above Next lab INR check scheduled on 11/22/2021 Senia Phillips RPh Clinical Pharmacist, Pharmacy Anticoagulation Clinic Pharmacy Anticoagulation Clinic Pager: [phone]. documented in this encounterParkwood Hospital08-05-2022 Miscellaneous Notes* Telephone Encounter - Janice Huang RPh - 10/25/2021 4:16 PM EDT [facility] Anticoagulation Episode Summary Anticoagulation Care Providers Provider Role Specialty Phone number Stas Mora MD Referring [facility] [phone] Roby Flores is a 86 year old year old male patient being evaluated today for a Telemanagement visit. Patient is currently on the following anticoagulant(s) Warfarin. Labs PT INR (no units) Date Value 05/15/2021 2.3 04/17/2021 1.9 03/13/2021 Test sent to [facility]. INR (no units) Date Value 10/25/2021 4.1 [...] ALLERGIES No Known Allergies Indication for Warfarin: senior care current use of anticoagulant Paroxysmal atrial [...] Pharmacy Anticoagulation Clinic Pharmacy Anticoagulation Clinic Pager: [phone] . documented in this encounterParkwood Hospital07-08-2022 Miscellaneous Notes* Telephone Encounter - Elana Campbell (Manager Of Sustainability) - 09/27/2021 4:50 PM EDT PATIENT CALL Patient called call center regarding results. Patient called and stated he had his INR checked today (09/27) and it was 2.3. Patient can be called at [phone] with any questions or sent MC message if result is within range. PT INR (no units) Date Value 05/15/2021 2.3 04/17/2021 1.9 03/13/2021 Test sent to [facility]. INR (no units) Date Value 09/27/2021 2.3 09/13/2021 2.7 08/30/2021 2.1 Elana Campbell ([email or web address]) * Telephone Encounter - Yomi Wills RPh - 09/27/2021 6:28 AM EDT Patient due to test INR today. Will continue to monitor for results. Yomi Wills RPh documented in this encounterParkwood Hospital06-24-2022 Miscellaneous Notes* Telephone Encounter - Senia Phillips RPh - 09/13/2021 4:11 PM EDT [facility] Anticoagulation Episode Summary Anticoagulation Care Providers Provider Role Specialty Phone number Stas Mora MD Referring [facility] [phone] Roby Flores is a 86 year old year old male patient being evaluated today for a Telemanagement visit. Patient is currently on the following anticoagulant(s) Warfarin. Labs PT INR (no units) Date Value 05/15/2021 2.3 04/17/2021 1.9 03/13/2021 Test sent to [facility]. INR (no units) Date Value 09/13/2021 2.7 [...] ALLERGIES No Known Allergies Indication for Warfarin: director 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 current use of anticoagulant Paroxysmal atrial fibrillation (hcc) Anticoagulation Episode Summary Current INR goal: 2.0-3.0 Assessment: INR result of 2.7 is therapeutic Plan: Sent Expert360 message Advised patient to continue current weekly dose Next lab INR check scheduled on 09/27/2021 Senia Phillips RPh Clinical Pharmacist, Pharmacy Anticoagulation Clinic Pharmacy Anticoagulation Clinic Pager: [phone] . documented in this encounterParkwood Hospital06-16-2022 History of Present illness Narrative* Stas Mora MD - 09/05/2021 11:20 AM EDT Medical B eligibilty date 1999 Date of last exam 08/28/2020 PAST MEDICAL HISTORY Diagnosis Date Coronary atherosclerosis of unspecified type of vessel, tazlina or graft Coronary artery disease Other and [...] [place] every 6 [place]. Pt follows with [facility] for Coumadin management. Pt denies any [...] to remember the following three words: Banana, Chrisney and Chair Visuospatial/Executive Functioning: Clock drawin/2 (Normal [...] Past Histories independently gathered by the clinical support director and the remaining scribed note accurately describes my personal service to the patient. Stas Mora MD The documentation for this note was completed by Rosie Cruz Ma acting as scribe for Stas Mora MD. September 05, 2021 11:33 AM. Rosie Cruz Ma documented in this encounterParkwood Hospital06-10-2022 Miscellaneous Notes* Telephone Encounter - Senia Phillips [facility] - 08/30/2021 5:10 PM EDT [facility] Anticoagulation Episode Summary Anticoagulation Care Providers Provider Role Specialty Phone number Stas Mora MD Referring [facility] [phone] Roby Flores is a 86 year old year old male patient being evaluated today for a Telemanagement visit. Patient is currently on the following anticoagulant(s) Warfarin. Labs PT INR (no units) Date Value 05/15/2021 2.3 04/17/2021 1.9 03/13/2021 Test sent to [facility]. INR (no units) Date Value 08/30/2021 2.1 [...] ALLERGIES No Known Allergies Indication for Warfarin: senior care current use of anticoagulant Paroxysmal atrial fibrillation (hcc) Anticoagulation Episode Summary Current INR goal: 2.0-3.0 Assessment: INR result of 2.1 is therapeutic Plan: Sent Expert360 message Advised patient to continue current weekly dose Next lab INR check scheduled on 09/13/2021 Senia Phillips RPh Clinical Pharmacist, Pharmacy Anticoagulation Clinic Pharmacy Anticoagulation Clinic Pager: [phone] . documented in this encounterParkwood Hospital06-10-2022 Miscellaneous Notes* Telephone Encounter - Jenna Fitzpatrick APRN.CNP - 08/30/2021 8:56 AM EDT Needs order for PT/INR, order signed. Jenna Fitzpatrick APRN.CNP documented in this encounterParkwood Hospital05-27-2022 Miscellaneous Notes* Telephone Encounter - Rosie Cruz Ma - 08/16/2021 2:18 PM EDT INR has been reviewed in another encounter. Rosie Cruz Ma documented in this encounterParkwood Hospital05-13-2022 Miscellaneous Notes* Telephone Encounter - Senia Phillips RPh - 08/02/2021 4:11 PM EDT [facility] Anticoagulation Episode Summary Anticoagulation Care Providers Provider Role Specialty Phone number Stas Mora MD Referring [facility] [phone] Roby Flores is a 85 year old year old male patient being evaluated today for a Telemanagement visit. Patient is currently on the following anticoagulant(s) Warfarin. Labs PT INR (no units) Date Value 05/15/2021 2.3 04/17/2021 1.9 03/13/2021 Test sent to [facility]. INR (no units) Date Value 08/02/2021 3.2 [...] ALLERGIES No Known Allergies Indication for Warfarin: director 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 current use of anticoagulant [...] Pharmacy Anticoagulation Clinic Pharmacy Anticoagulation Clinic Pager: [phone] . documented in this encounterParkwood Hospital04-27-2022 Miscellaneous Notes* Telephone Encounter - Rosie [...] months Stas Mora MD documented in this encounterParkwood Hospital04-25-2022 Miscellaneous Notes* Telephone Encounter - Elvis Kearney APRN.CNP - 07/15/2021 12:39 PM EDT The following approved medication requests have been transmitted electronically. Pending Prescriptions Disp Refills WARFARIN 2.5 MG TABLET 135 tablet 3 Sig: TAKE 5 MG EVERY MON, DIXIE 2.5 MG ALL OTHER DAYS MESFIN: No Elvis Kearney APRN.CNP documented in this encounterParkwood Hospital04-18-2022 History of Present illness Narrative* Stas [...] SOB. No swelling in feet orankles. No cook roast. Taking Fosinopril 10 mg daily. Lipid: Taking [...] Coronary atherosclerosis of unspecified type of vessel, tazlina or graft Coronary artery disease Other and [...] unspecified vessel or lesion type, unspecified whether tazlina or transplanted heart - ICD9: 414.00, ICD10: [...] Past Histories independently gathered by the clinical support director and the remaining scribed note accurately describes [...] AM. Marta Palacio Ma documented in this encounterParkwood Hospital04-13-2022 Miscellaneous Notes* Telephone Encounter - Coretta Jalloh RPh - 07/03/2021 3:40 PM EDT [facility] Anticoagulation Episode Summary Anticoagulation Care Providers Provider Role Specialty Phone number Stas Mora MD Referring [facility] [phone] Roby Flores is a 85 year old year old male patient being evaluated today for a Lab INR. Patient is currently on the following anticoagulant(s) Warfarin. Labs PT INR (no units) Date Value 05/15/2021 2.3 04/17/2021 1.9 03/13/2021 Test sent to [facility]. INR (no units) Date Value 07/03/2021 4.5 06/12/2021 3.5 Creatinine (mg/dL) Date Value 03/13/2021 0.80 08/28/2020 0.83 Bilirubin, Total (mg/dL) Date Value 03/13/2021 0.5 ALT (U/L) Date Value 03/13/2021 24 AST (U/L) Date Value 03/13/2021 24 CrCl cannot be calculated (Unknown ideal weight.). ALLERGIES No Known Allergies Indication for Warfarin: director 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 current use of anticoagulant [...] Pharmacy Anticoagulation Clinic Pharmacy Anticoagulation Clinic Pager: [phone] . * Telephone Encounter - Marta Palacio Ma - 07/03/2021 3:05 PM EDT INR 4.5. Results routed to pharmacist who Handles pt coumadin. Marta Palacio Ma documented in this encounterParkwood Hospital03-23-2022 Miscellaneous Notes* Telephone Encounter - Coretta Jalloh RPh - 06/12/2021 3:20 PM EDT [facility] Anticoagulation Episode Summary Anticoagulation Care Providers Provider Role Specialty Phone number Stas Mora MD Referring [facility] [phone] Roby Flores is a 85 year old year old male patient being evaluated today for a Lab INR. Patient is currently on the following anticoagulant(s) Warfarin. Labs PT INR (no units) Date Value 05/15/2021 2.3 04/17/2021 1.9 03/13/2021 Test sent to [facility]. INR (no units) Date Value 06/12/2021 3.5 Creatinine (mg/dL) Date Value 03/13/2021 0.80 08/28/2020 0.83 Bilirubin, Total (mg/dL) Date Value 03/13/2021 0.5 ALT (U/L) Date Value 03/13/2021 24 AST (U/L) Date Value 03/13/2021 24 CrCl cannot be calculated (Unknown ideal weight.). ALLERGIES No Known Allergies Indication for Warfarin: senior care current use of anticoagulant Paroxysmal atrial fibrillation (hcc) Anticoagulation Episode Summary Current INR goal: 2.0-3.0 Assessment: INR result of 3.5 is SUPRAtherapeutic due to: No obvious cause Plan: Called and spoke to patient/caregiver Advised patient to hold 1 dose then continue current regimen Next lab INR check scheduled on 07/03 in [place]. Patient verbalizes understanding of the plan. Patient denies need for refills. Coretta Jalloh RPh Clinical Pharmacist, Pharmacy Anticoagulation Clinic Pharmacy Anticoagulation Clinic Pager: [phone] . * Telephone Encounter - Rosie Cruz Ma - 06/12/2021 3:08 PM EDT Pt's INR results have finalized. Routing to pharm to review and advise. Rosie Cruz Ma documented in this encounterParkwood Hospital12-21-2020 History of Present illness Narrative* Hussein [...] 12, 2020 5:01 PM documented in this encounterParkwood HospitalDischarge summary Author Inderjit Gillespie [facility] Note Date/Time September 01, 2024 10:2 5am [facility] Medical Records Department [address] [place] [address] Emergency Department Summary 09/01/24 MR#: [id number] Acct: [id number] Name: ROBY FLORES Rep #:[id number] : [...] shoulders elbows and wrist. 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 Neurologically he is awake alert. Answering [...] 87.5 H Lymph % (Auto) 4.8 L Burt % (Auto) 5.7 Eos % (Auto) 1.2 [...] Clarity Clear Urine pH 8.0 Ur Specific [place] 1.010 Urine Protein 15 H Urine Glucose [...] No fracture or dislocation present. Reading Location: [facility] 09/01/24 09:05 IMPRESSION: Cerebral atrophy. Mucosal thickening of the ethmoid sinuses as well as opacification of the left maxillary sinus. Reading Location: [facility]1 Chest X-Ray 09/01/24 09:25 IMPRESSION: No acute abnormality is seen. Reading Location: [facility]-1 Chest x-ray, 2 views, AP and [...] your Primary Care Provider. Call [facility] ([phone]) or report to the closest Emergency Room. Call 911 if necessary. 09/01/24 1025 <Electronically signed by Inderjit Gillespie MD> Cosigner Signature (if applicable): CC: Dr. Stas Mora MD ~ Signed [facility] Work Phone: Evaluation + Plan note No data available for this section [facility] Evaluation note* Diagnosis senior care current use of anticoagulant- Primary Long-term (current) use of anticoagulants Paroxysmal atrial fibrillation (HCC) Atrial fibrillation documented in this encounter [facility]* Diagnosis director 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 current use of anticoagulant- Primary Long-term (current) use of anticoagulants Paroxysmal atrial fibrillation (HCC) Atrial fibrillation [facility] [place] [facility]* Diagnosis Essential hypertension, benign- Primary Atherosclerosis 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, unspecified vessel or lesion type, unspecified whether tazlina or transplanted heart Paroxysmal atrial fibrillation (HCC) Atrial fibrillation Primary osteoarthritis of both knees Primary localized osteoarthrosis, lower leg documented in this encounter [facility] [place] [facility]* Diagnosis Atherosclerosis 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, unspecified vessel or lesion type, unspecified whether tazlina or transplanted heart- Primary Essential hypertension, benign documented [facility] this [facility] [place] [facility]* Diagnosis senior care current use of anticoagulant- Primary Long-term (current) use of anticoagulants Paroxysmal atrial fibrillation (HCC) Atrial fibrillation documented in this encounter [facility] note* Diagnosis Elevated INR- Primary Abnormal coagulation profile documented in this encounter [facility] note* Diagnosis senior care current use of anticoagulant- Primary Long-term (current) use of anticoagulants Paroxysmal atrial fibrillation (HCC) Atrial fibrillation documented in this encounter [facility] note* Diagnosis Encounter for Medicare annual wellness exam- Primary Routine general medical examination at a [facility] [place] Paroxysmal atrial fibrillation (HCC) Atrial fibrillation Essential hypertension, benign documented in this encounter [facility] note* Diagnosis senior care current use of anticoagulant- Primary Long-term (current) use of anticoagulants Encounter for monitoring Coumadin therapy Encounter for therapeutic drug monitoring documented in this encounter [facility] note* Diagnosis senior care current use of anticoagulant- Primary Long-term (current) use of anticoagulants Paroxysmal atrial fibrillation (HCC) Atrial fibrillation documented in this encounter [facility] note* Diagnosis senior care current use of anticoagulant- Primary Long-term (current) use of anticoagulants Paroxysmal atrial fibrillation (HCC) Atrial fibrillation documented in this encounter [facility] note* Diagnosis Onset Date Resolution Status Chronic anticoagulation acut e TIA (transient ischemic attack) acute CAD (coronary artery disease) [facility] Work Phone: Evaluation note* Diagnosis Onset Date Resolution Status Chronic anticoagulation acut e Stroke-like symptoms acute TIA (transient ischemic attack) acute CAD (coronary artery disease) [facility] Work Phone: Evaluation note* Diagnosis Hospital discharge follow-up- Primary Other follow-up examination Encounter for immunization Need for other specified prophylactic vaccination against single bacterial disease TIA (transient ischemic attack) Unspecified transient cerebral ischemia Thyroid nodule Nontoxic uninodular goiter Essential hypertension, benign Paroxysmal atrial fibrillation (HCC) Atrial fibrillation Atherosclerosis 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, unspecified vessel or lesion type, unspecified whether tazlina or transplanted heart [facility] [place] [facility] Diagnosis director 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 current use of anticoagulant- Primary Long-term (current) use of anticoagulants Paroxysmal atrial fibrillation (HCC) Atrial fibrillation [facility] [place] [facility]* Diagnosis director 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 current use of anticoagulant- Primary Long-term (current) use of anticoagulants Paroxysmal atrial fibrillation (HCC) Atrial fibrillation [facility] [place] [facility]* Diagnosis director 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 current use of anticoagulant- Primary Long-term (current) use of anticoagulants Paroxysmal atrial fibrillation (HCC) Atrial fibrillation [facility] [place] [facility]* Diagnosis Encounter for Medicare annual wellness exam- Primary Routine general medical examination at a [facility] Paroxysmal atrial fibrillation (HCC) Atrial fibrillation Essential hypertension, benign Hyperlipidemia, unspecified hyperlipidemia type [facility] [place] [facility]* Diagnosis senior care current use of anticoagulant- Primary Long-term (current) use of anticoagulants Paroxysmal atrial fibrillation (HCC) Atrial fibrillation [facility] [place] [facility]* Diagnosis senior care current use of anticoagulant- Primary Long-term (current) use of anticoagulants Paroxysmal atrial fibrillation (HCC) Atrial fibrillation [facility] [place] [facility]* Diagnosis director 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 current use of anticoagulant- Primary Long-term (current) use of anticoagulants Paroxysmal atrial fibrillation (HCC) Atrial fibrillation [facility] [place] [facility]* Diagnosis director 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 current use of anticoagulant- Primary Long-term (current) use of anticoagulants Paroxysmal atrial fibrillation (HCC) Atrial fibrillation [facility] [place] noteNo assessment information [facility] Work Phone: [facility]* Diagnosis senior care current use of anticoagulant- Primary Long-term (current) use of anticoagulants Paroxysmal atrial fibrillation (HCC) Atrial fibrillation [facility] [place] [facility]* Diagnosis Cerebral infarction, unspecified mechanism (HCC)- Primary Generalized weakness Other malaise and fatigue Speech disturbance, unspecified type Hyperlipidemia, unspecified hyperlipidemia type Essential hypertension, benign Paroxysmal atrial fibrillation (HCC) Atrial fibrillation [facility] [place] [facility]* Diagnosis Cerebral infarction, unspecified mechanism (HCC) [facility] [place] [facility]* Diagnosis director 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 current use of anticoagulant- Primary Long-term (current) use of anticoagulants Paroxysmal atrial fibrillation (HCC) Atrial fibrillation [facility] [place] [facility]* Diagnosis Essential hypertension, benign- Primary Paroxysmal atrial fibrillation (HCC) Atrial fibrillation Atherosclerosis 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, unspecified vessel or lesion type, unspecified whether tazlina or transplanted heart Hyperlipidemia, unspecified hyperlipidemia type History of stroke with 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 Speech disturbance, unspecified type [facility] [place] [facility]* Diagnosis Abnormal CBC- Primary Other abnormal blood chemistry [facility] [place] [facility]* Diagnosis director 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 current use of anticoagulant- Primary Long-term (current) use of anticoagulants Paroxysmal atrial fibrillation (HCC) Atrial fibrillation [facility] [place] [facility]* Diagnosis senior care current use of anticoagulant- Primary Long-term (current) use of anticoagulants Paroxysmal atrial fibrillation (HCC) Atrial fibrillation [facility] [place] [facility] Diagnosis senior care current use of anticoagulant- Primary Long-term (current) use of anticoagulants Paroxysmal atrial fibrillation (HCC) Atrial fibrillation [facility] [place] [facility]* Diagnosis senior care current use of anticoagulant- Primary Long-term (current) use of anticoagulants Paroxysmal atrial fibrillation (HCC) Atrial fibrillation [facility] [place] [facility]* Diagnosis 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, psychotic disturbance, mood disturbance, or anxiety (HCC)- Primary Essential hypertension, benign Paroxysmal atrial fibrillation (HCC) Atrial fibrillation [facility] [place] [facility]* Diagnosis Edema of both lower legs- Primary [facility] director 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 current use of anticoagulant- Primary Long-term (current) use of anticoagulants Paroxysmal atrial fibrillation (HCC) Atrial fibrillation [facility] [place] [facility]* Diagnosis director 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 current use of anticoagulant Long-term (current) use of anticoagulants Paroxysmal atrial fibrillation (HCC) Atrial fibrillation [facility] Diagnosis Essential hypertension, benign- Primary Hyperlipidemia, unspecified hyperlipidemia type Edema of both lower legs Paroxysmal atrial fibrillation (HCC) Atrial fibrillation History of stroke with 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, psychotic disturbance, mood disturbance, or anxiety (HCC) Urinary frequency Abnormal CBC Other abnormal blood chemistry [facility] [place] [facility]* Diagnosis director 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 current use of anticoagulant- Primary Long-term (current) use of anticoagulants Paroxysmal atrial fibrillation (HCC) Atrial fibrillation [facility] [place] [facility]* Diagnosis director 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 current use of anticoagulant- Primary Long-term (current) use of anticoagulants Paroxysmal atrial fibrillation (HCC) Atrial fibrillation [facility] [place] [facility]* Diagnosis Left hip pain Pain in joint, pelvic region and thigh [facility] [place] [facility]* Diagnosis director 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 current use of anticoagulant- Primary Long-term (current) use of anticoagulants Paroxysmal atrial fibrillation (HCC) Atrial fibrillation [facility] [place] [facility]* Diagnosis Acute right-sided low back pain, unspecified whether sciatica present [facility] [place] [facility]* Diagnosis Paroxysmal atrial fibrillation (HCC)- Primary Atrial fibrillation [facility] [place] [facility]* Diagnosis director 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 current use of anticoagulant- Primary Long-term (current) use of anticoagulants Paroxysmal atrial fibrillation (HCC) Atrial fibrillation [facility] [place] [facility]* Diagnosis senior care current use of anticoagulant- Primary Long-term (current) use of anticoagulants Paroxysmal atrial fibrillation (HCC) Atrial fibrillation [facility] [place] [facility]* Diagnosis Dementia, unspecified dementia severity, unspecified dementia type, unspecified whether behavioral, psychotic, or mood disturbance or anxiety (HCC)- Primary [facility] [place] [facility]* Diagnosis director 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 current use of anticoagulant- Primary Long-term (current) use of anticoagulants Paroxysmal atrial fibrillation (HCC) Atrial fibrillation [facility] [place] [facility]* Diagnosis Dementia, unspecified dementia severity, unspecified [...] and musculoskeletal systems documented [facility] [place] [facility]* Diagnosis Cognitive impairment, mild, so stated Mild cognitive impairment, so stated documented in this encounter [facility] note* Diagnosis Essential hypertension, benign- Primary Hyperlipidemia, unspecified hyperlipidemia type Atherosclerosis 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, unspecified vessel or lesion type, unspecified whether tazlina or transplanted heart Paroxysmal atrial fibrillation (HCC) Atrial fibrillation Edema of both lower legs History of stroke with 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 Dementia, unspecified dementia severity, unspecified dementia type, unspecified whether behavioral, psychotic, or mood disturbance or anxiety (HCC) documented [facility] [place] [facility]* 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 for referral (narrative)* Diagnostic Procedure Only (Routine) - Authorized Specialty Diagnoses / Procedures [facility] Referred To Contact US IMAGING Diagnoses Thyroid nodule Procedures US THYROID/PARATHYROID US SOFT TISSUE HEAD & NECK REAL TIME IMGE DOCM Stas Mora MD [address] [place] [address] Us Imaging Referral ID Status Reason Start Date Expiration Date Visits Requested Visits Authorized [id number] Authorized Auto-Generat ed Referral 12/26/2021 01/25/[address] [facility] for referral (narrative)* Diagnostic Procedure Only (Urgent) - Closed Specialty Diagnoses / Procedures Referred By Contac t Referred To Contact XR IMAGING Diagnoses Left hip pain Procedures XR HIP GENERAL 3V PELV/AP/LAT LEFT RADEX HIP UNILATERAL WITH PELVIS 2-3 VIEWS Jenna Fitzpatrick APRN.CNP [address] [place] [address] [place] [address] Referral ID Status Reason Start Date Expiration Date V isits Requested Visits Authorized [id number] Closed Auto-Generate d Referral 05/21/2022 06/20/[address] [facility] for referral (narrative)No reason for referral information availableWDelaware [facility] Work Phone: Reason for visit Narrative* Diagnostic Procedure Only (Urgent) - Closed Specialty Diagnoses / Procedures Referred By Contac t Referred To Contact XR IMAGING Diagnoses Left hip pain Procedures XR HIP GENERAL 3V PELV/AP/LAT LEFT RADEX HIP UNILATERAL WITH PELVIS 2-3 VIEWS Jenna Fitzpatrick APRN.[employer] [address] [place] [address] [place] [address] Referral ID Status Reason Start Date Expiration Date V isits Requested Visits Authorized [id number] Closed Auto-Generate d Referral 05/21/2022 06/20/[address] [facility] for visit Narrative* MRI/CT (Routine) - Closed Specialty Diagnoses / Procedures Referred By Contac t Referred To Contact MR IMAGING Diagnoses Cognitive impairment, mild, so stated Procedures MRI BRAIN W QUANT WO IVCON MRI BRAIN BRAIN STEM W/O CONTRAST MATERIAL Luciana Cisneros MD [address] [place] [address] Phone: tel: fax: [place] [address] Referral ID Status Reason Start Date Expiration Date V isits Requested Visits Authorized [id number] Closed Auto-Generate d Referral 05/11/2024 07/10/2024 1 1 [facility] Summary Purpose Family History No Family [...] Will Yes December 21 6:17pm Power of Publisher Assistant Yes December 21 022 6:17pm Name of Medical Power of Publisher Assistant IRAJ HULL , DAUGHTER December 21, 2021 6:17pm Advance Directive Response Recorded Date/ Time Name of Medical Power of Publisher Assistant Anabella Hull October 1st, 2022 8:06pm Living Will Yes December 21 8:06pm Power of Publisher Assistant Yes December 21 022 8:06pm Advance Directive Response Recorded Date/ Time Living Will Yes February 10 023 3:17pm Power of Publisher Assistant Yes February 10, 2023 3:17pm Name of Medical Power of Publisher Assistant daughter-yomi hull February 10, 2023 3:17pm Advance Directive Response Recorded Date/ Time Do you have a Healthcare Power of Publisher Assistant? Yes September 01, 2024 7:36am Name of Medical Power of Publisher Assistant anabella hull September 01, 2024 7:36am Advance Directive Response Recorded Date/ Time Do you have a Healthcare Power of Publisher Assistant? Yes September 01, 2024 12:00pm Name of Medical Power of Publisher Assistant anabella hull September 01, 2024 12:00pm Chief [...] FALL September 02 12:49pm DEBILITY, MECHANICAL FALL Louann 13th, 202 5 2:04pm DEBILITY, MECHANICAL FALL September 03 11:35am [...] COMPLEX 45 MINS Luciana Cisneros MD [address] [place] [address] [facility] [address] [place] [address] Referral ID Status Reason Start Date Expiration Date Visits Requested Visits Authorized [id number] Pending Review Auto-Generat ed Referral 04/27/2024 04/27/2025 1 1 Specialty Diagnoses / Procedures Referred By Contac t Referred To Contact MR IMAGING Diagnoses Cognitive impairment, mild, so stated Procedures MRI BRAIN W QUANT WO IVCON MRI BRAIN BRAIN STEM W/O CONTRAST MATERIAL Luciana Cisneros MD [address] [place] [address] Mr Imaging [id number] Referral ID Status Reason Start Date Expiration Date Visits Requested Visits Authorized [id number] Pending Review Auto-Generat ed Referral 04/27/2024 05/27/2025 1 1 Specialty Diagnoses / Procedures Referred By Contac t Referred To Contact Gerontology Diagnoses Dementia, unspecified dementia severity, unspecified dementia type, unspecified whether behavioral, psychotic, or mood disturbance or anxiety (HCC) Procedures CONSULT TO GERIATRICS OFFICE/OUT[facility]IENT [facility] MDM 60 MINUTES Stas Mora MD [address] [place] [address] Referral ID Status Reason Start Date Expiration Date Visits Requested Visits Authorized [id number] Authorized PCP Requested Referral 04/25/2024 04/25/2025 1 1 Specialty Diagnoses / Procedures Referred By Contac t Referred To Contact MR IMAGING Diagnoses Cerebral infarction, unspecified mechanism (HCC) Procedures MRI BRAIN WO IVCON MRI BRAIN BRAIN STEM W/O CONTRAST MATERIAL Stas Mora MD [address] [place] [address] [place] [address] Referral ID Status Reason Start Date Expiration Date Visits Requested Visits Authorized [id number] Pending Review Auto-Genera eli Referral Patient Cleared - Admin/Chair man/Directo r advise to proceed or did not respond 3 03/17/2024 1 1 Additional Source Comments (unrecognized sect ion and content) No Status Records FoundNo Status Records FoundNo Status Records FoundNo Status Records FoundNo Status Records FoundNo Status Records FoundNo Status Records Found INFORMATION SOURCE (unrecogn ized section and content) DATE CREATED [facility] DATE CREATED AUTHOR AUTHOR'S ORGANIZ ATION [facility] DATE CREATED AUTHOR AUTHOR'S ORGANIZ ATION [facility]2017 [facility] DATE CREATED AUTHOR AUTHOR'S ORGANIZ ATION 08/12/2023 [facility] ([place]) DATE CREATED AUTHOR AUTHOR'S ORGANIZ ATION 05/24/2024 [facility] nt DATE CREATED AUTHOR AUTHOR'S ORGANIZ ATION 01/07/2025 [facility] DATE CREATED AUTHOR AUTHOR'S ORGANIZ ATION 01/09/2025 [facility] Source Comments (unrecognize d section and content) In the event this informatio n is protected by the Federal Confidentiality of Alcohol and Drug Abuse Patient Records regulations: The Federal rules restrict any use of the information to criminally investigate or prosecute any alcohol or drug abuse patient.[facility] the event this information is protected by the Federal Confidentiality of Alcohol and Drug Abuse Patient Records regulations: The Federal rules restrict any use of the information to criminally investigate or prosecute any alcohol or drug abuse patient.[facility] HospitalIn the event this information is protected by the Federal Confidentiality of Alcohol and Drug Abuse Patient Records regulations: The Federal rules restrict any use of the information to criminally investigate or prosecute any alcohol or drug abuse patient.[facility] HospitalIn the event this information is protected by the Federal Confidentiality of Alcohol and Drug Abuse Patient Records regulations: The Federal rules restrict any use of the information to criminally investigate or prosecute any alcohol or drug abuse patient.[facility] HospitalIn the event this information is protected by the Federal Confidentiality of Alcohol and Drug Abuse Patient Records regulations: The Federal rules restrict any use of the information to criminally investigate or prosecute any alcohol or drug abuse patient.[facility] HospitalIn the event this information is protected by the Federal Confidentiality of Alcohol and Drug Abuse Patient Records regulations: The Federal rules restrict any use of the information to criminally investigate or prosecute any alcohol or drug abuse patient.[facility] HospitalIn the event this information is protected by the Federal Confidentiality of Alcohol and Drug Abuse Patient Records regulations: The Federal rules restrict any use of the information to criminally investigate or prosecute any alcohol or drug abuse patient.[facility] HospitalIn the event this information is protected by the Federal Confidentiality of Alcohol and Drug Abuse Patient Records regulations: The Federal rules restrict any use of the information to criminally investigate or prosecute any alcohol or drug abuse patient.[facility] HospitalIn the event this information is protected by the Federal Confidentiality of Alcohol and Drug Abuse Patient Records regulations: The Federal rules restrict any use of the information to criminally investigate or prosecute any alcohol or drug abuse patient.[facility] HospitalIn the event this information is protected by the Federal Confidentiality of Alcohol and Drug Abuse Patient Records regulations: The Federal rules restrict any use of the information to criminally investigate or prosecute any alcohol or drug abuse patient.[facility] HospitalIn the event this information is protected by the Federal Confidentiality of Alcohol and Drug Abuse Patient Records regulations: The Federal rules restrict any use of the information to criminally investigate or prosecute any alcohol or drug abuse patient.[facility] HospitalIn the event this information is protected by the Federal Confidentiality of Alcohol and Drug Abuse Patient Records regulations: The Federal rules restrict any use of the information to criminally investigate or prosecute any alcohol or drug abuse patient.[facility] HospitalIn the event this information is protected by the Federal Confidentiality of Alcohol and Drug Abuse Patient Records regulations: The Federal rules restrict any use of the information to criminally investigate or prosecute any alcohol or drug abuse patient.[facility] HospitalIn the event this information is protected by the Federal Confidentiality of Alcohol and Drug Abuse Patient Records regulations: The Federal rules restrict any use of the information to criminally investigate or prosecute any alcohol or drug abuse patient.[facility] HospitalIn the event this information is protected by the Federal Confidentiality of Alcohol and Drug Abuse Patient Records regulations: The Federal rules restrict any use of the information to criminally investigate or prosecute any alcohol or drug abuse patient.[facility] HospitalIn the event this information is protected by the Federal Confidentiality of Alcohol and Drug Abuse Patient Records regulations: The Federal rules restrict any use of the information to criminally investigate or prosecute any alcohol or drug abuse patient.[facility] HospitalIn the event this information is protected by the Federal Confidentiality of Alcohol and Drug Abuse Patient Records regulations: The Federal rules restrict any use of the information to criminally investigate or prosecute any alcohol or drug abuse patient.[facility] HospitalIn the event this information is protected by the Federal Confidentiality of Alcohol and Drug Abuse Patient Records regulations: The Federal rules restrict any use of the information to criminally investigate or prosecute any alcohol or drug abuse patient.[facility] HospitalIn the event this information is protected by the Federal Confidentiality of Alcohol and Drug Abuse Patient Records regulations: The Federal rules restrict any use of the information to criminally investigate or prosecute any alcohol or drug abuse patient.[facility] HospitalIn the event this information is protected by the Federal Confidentiality of Alcohol and Drug Abuse Patient Records regulations: The Federal rules restrict any use of the information to criminally investigate or prosecute any alcohol or drug abuse patient.[facility] HospitalIn the event this information is protected by the Federal Confidentiality of Alcohol and Drug Abuse Patient Records regulations: The Federal rules restrict any use of the information to criminally investigate or prosecute any alcohol or drug abuse patient.[facility] HospitalIn the event this information is protected by the Federal Confidentiality of Alcohol and Drug Abuse Patient Records regulations: The Federal rules restrict any use of the information to criminally investigate or prosecute any alcohol or drug abuse patient.[facility] HospitalIn the event this information is protected by the Federal Confidentiality of Alcohol and Drug Abuse Patient Records regulations: The Federal rules restrict any use of the information to criminally investigate or prosecute any alcohol or drug abuse patient.[facility] HospitalIn the event this information is protected by the Federal Confidentiality of Alcohol and Drug Abuse Patient Records regulations: The Federal rules restrict any use of the information to criminally investigate or prosecute any alcohol or drug abuse patient.[facility] HospitalIn the event this information is protected by the Federal Confidentiality of Alcohol and Drug Abuse Patient Records regulations: The Federal rules restrict any use of the information to criminally investigate or prosecute any alcohol or drug abuse patient.[facility] HospitalIn the event this information is protected by the Federal Confidentiality of Alcohol and Drug Abuse Patient Records regulations: The Federal rules restrict any use of the information to criminally investigate or prosecute any alcohol or drug abuse patient.[facility] HospitalIn the event this information is protected by the Federal Confidentiality of Alcohol and Drug Abuse Patient Records regulations: The Federal rules restrict any use of the information to criminally investigate or prosecute any alcohol or drug abuse patient.[facility] HospitalIn the event this information is protected by the Federal Confidentiality of Alcohol and Drug Abuse Patient Records regulations: The Federal rules restrict any use of the information to criminally investigate or prosecute any alcohol or drug abuse patient.[facility] HospitalIn the event this information is protected by the Federal Confidentiality of Alcohol and Drug Abuse Patient Records regulations: The Federal rules restrict any use of the information to criminally investigate or prosecute any alcohol or drug abuse patient.[facility] HospitalIn the event this information is protected by the Federal Confidentiality of Alcohol and Drug Abuse Patient Records regulations: The Federal rules restrict any use of the information to criminally investigate or prosecute any alcohol or drug abuse patient.[facility] HospitalIn the event this information is protected by the Federal Confidentiality of Alcohol and Drug Abuse Patient Records regulations: The Federal rules restrict any use of the information to criminally investigate or prosecute any alcohol or drug abuse patient.[facility] HospitalIn the event this information is protected by the Federal Confidentiality of Alcohol and Drug Abuse Patient Records regulations: The Federal rules restrict any use of the information to criminally investigate or prosecute any alcohol or drug abuse patient.[facility] HospitalIn the event this information is protected by the Federal Confidentiality of Alcohol and Drug Abuse Patient Records regulations: The Federal rules restrict any use of the information to criminally investigate or prosecute any alcohol or drug abuse patient.[facility] HospitalIn the event this information is protected by the Federal Confidentiality of Alcohol and Drug Abuse Patient Records regulations: The Federal rules restrict any use of the information to criminally investigate or prosecute any alcohol or drug abuse patient.[facility] HospitalIn the event this information is protected by the Federal Confidentiality of Alcohol and Drug Abuse Patient Records regulations: The Federal rules restrict any use of the information to criminally investigate or prosecute any alcohol or drug abuse patient.[facility] HospitalIn the event this information is protected by the Federal Confidentiality of Alcohol and Drug Abuse Patient Records regulations: The Federal rules restrict any use of the information to criminally investigate or prosecute any alcohol or drug abuse patient.[facility] HospitalIn the event this information is protected by the Federal Confidentiality of Alcohol and Drug Abuse Patient Records regulations: The Federal rules restrict any use of the information to criminally investigate or prosecute any alcohol or drug abuse patient.[facility] the event this information is protected by the Federal Confidentiality of Alcohol and Drug Abuse Patient Records regulations: The Federal rules restrict any use of the information to criminally investigate or prosecute any alcohol or drug abuse patient.[facility] HospitalIn the event this information is protected by the Federal Confidentiality of Alcohol and Drug Abuse Patient Records regulations: The Federal rules restrict any use of the information to criminally investigate or prosecute any alcohol or drug abuse patient.[facility] HospitalIn the event this information is protected [...] or prosecute any alcohol or drug abuse patient.[facility] HospitalIn the event this information is protected by the Federal Confidentiality of Alcohol and Drug Abuse Patient Records regulations: The Federal rules restrict any use of the information to criminally investigate or prosecute any alcohol or drug abuse patient.[facility] HospitalIn the event this information is protected by the Federal Confidentiality of Alcohol and Drug Abuse Patient Records regulations: The Federal rules restrict any use of the information to criminally investigate or prosecute any alcohol or drug abuse patient.[facility] HospitalIn the event this information is protected by the Federal Confidentiality of Alcohol and Drug Abuse Patient Records regulations: The Federal rules restrict any use of the information to criminally investigate or prosecute any alcohol or drug abuse patient.[facility] HospitalIn the event this information is protected by the Federal Confidentiality of Alcohol and Drug Abuse Patient Records regulations: The Federal rules restrict any use of the information to criminally investigate or prosecute any alcohol or drug abuse patient.[facility] HospitalIn the event this information is protected by the Federal Confidentiality of Alcohol and Drug Abuse Patient Records regulations: The Federal rules restrict any use of the information to criminally investigate or prosecute any alcohol or drug abuse patient.[facility] HospitalIn the event this information is protected by the Federal Confidentiality of Alcohol and Drug Abuse Patient Records regulations: The Federal rules restrict any use of the information to criminally investigate or prosecute any alcohol or drug abuse patient.[facility] HospitalIn the event this information is protected by the Federal Confidentiality of Alcohol and Drug Abuse Patient Records regulations: The Federal rules restrict any use of the information to criminally investigate or prosecute any alcohol or drug abuse patient.[facility] HospitalIn the event this information is protected by the Federal Confidentiality of Alcohol and Drug Abuse Patient Records regulations: The Federal rules restrict any use of the information to criminally investigate or prosecute any alcohol or drug abuse patient.[facility] HospitalIn the event this information is protected by the Federal Confidentiality of Alcohol and Drug Abuse Patient Records regulations: The Federal rules restrict any use of the information to criminally investigate or prosecute any alcohol or drug abuse patient.[facility] HospitalIn the event this information is protected by the Federal Confidentiality of Alcohol and Drug Abuse Patient Records regulations: The Federal rules restrict any use of the information to criminally investigate or prosecute any alcohol or drug abuse patient.[facility] HospitalIn the event this information is protected by the Federal Confidentiality of Alcohol and Drug Abuse Patient Records regulations: The Federal rules restrict any use of the information to criminally investigate or prosecute any alcohol or drug abuse patient.[facility] HospitalIn the event this information is protected by the Federal Confidentiality of Alcohol and Drug Abuse Patient Records regulations: The Federal rules restrict any use of the information to criminally investigate or prosecute any alcohol or drug abuse patient.[facility] HospitalIn the event this information is protected by the Federal Confidentiality of Alcohol and Drug Abuse Patient Records regulations: The Federal rules restrict any use of the information to criminally investigate or prosecute any alcohol or drug abuse patient.[facility] HospitalIn the event this information is protected by the Federal Confidentiality of Alcohol and Drug Abuse Patient Records regulations: The Federal rules restrict any use of the information to criminally investigate or prosecute any alcohol or drug abuse patient.[facility] HospitalIn the event this information is protected by the Federal Confidentiality of Alcohol and Drug Abuse Patient Records regulations: The Federal rules restrict any use of the information to criminally investigate or prosecute any alcohol or drug abuse patient.[facility] HospitalIn the event this information is protected by the Federal Confidentiality of Alcohol and Drug Abuse Patient Records regulations: The Federal rules restrict any use of the information to criminally investigate or prosecute any alcohol or drug abuse patient.[facility] HospitalIn the event this information is protected by the Federal Confidentiality of Alcohol and Drug Abuse Patient Records regulations: The Federal rules restrict any use of the information to criminally investigate or prosecute any alcohol or drug abuse patient.[facility] HospitalIn the event this information is protected by the Federal Confidentiality of Alcohol and Drug Abuse Patient Records regulations: The Federal rules restrict any use of the information to criminally investigate or prosecute any alcohol or drug abuse patient.[facility] HospitalIn the event this information is protected by the Federal Confidentiality of Alcohol and Drug Abuse Patient Records regulations: The Federal rules restrict any use of the information to criminally investigate or prosecute any alcohol or drug abuse patient.[facility] HospitalIn the event this information is protected by the Federal Confidentiality of Alcohol and Drug Abuse Patient Records regulations: The Federal rules restrict any use of the information to criminally investigate or prosecute any alcohol or drug abuse patient.[facility] HospitalIn the event this information is protected by the Federal Confidentiality of Alcohol and Drug Abuse Patient Records regulations: The Federal rules restrict any use of the information to criminally investigate or prosecute any alcohol or drug abuse patient.[facility] HospitalIn the event this information is protected by the Federal Confidentiality of Alcohol and Drug Abuse Patient Records regulations: The Federal rules restrict any use of the information to criminally investigate or prosecute any alcohol or drug abuse patient.[facility] HospitalIn the event this information is protected by the Federal Confidentiality of Alcohol and Drug Abuse Patient Records regulations: The Federal rules restrict any use of the information to criminally investigate or prosecute any alcohol or drug abuse patient.[facility] HospitalIn the event this information is protected by the Federal Confidentiality of Alcohol and Drug Abuse Patient Records regulations: The Federal rules restrict any use of the information to criminally investigate or prosecute any alcohol or drug abuse patient.[facility] HospitalIn the event this information is protected by the Federal Confidentiality of Alcohol and Drug Abuse Patient Records regulations: The Federal rules restrict any use of the information to criminally investigate or prosecute any alcohol or drug abuse patient.[facility] HospitalIn the event this information is protected by the Federal Confidentiality of Alcohol and Drug Abuse Patient Records regulations: The Federal rules restrict any use of the information to criminally investigate or prosecute any alcohol or drug abuse patient.[facility] HospitalIn the event this information is protected by the Federal Confidentiality of Alcohol and Drug Abuse Patient Records regulations: The Federal rules restrict any use of the information to criminally investigate or prosecute any alcohol or drug abuse patient.[facility] HospitalIn the event this information is protected by the Federal Confidentiality of Alcohol and Drug Abuse Patient Records regulations: The Federal rules restrict any use of the information to criminally investigate or prosecute any alcohol or drug abuse patient.[facility] HospitalIn the event this information is protected by the Federal Confidentiality of Alcohol and Drug Abuse Patient Records regulations: The Federal rules restrict any use of the information to criminally investigate or prosecute any alcohol or drug abuse patient.[facility] HospitalIn the event this information is protected by the Federal Confidentiality of Alcohol and Drug Abuse Patient Records regulations: The Federal rules restrict any use of the information to criminally investigate or prosecute any alcohol or drug abuse patient.[facility] HospitalIn the event this information is protected by the Federal Confidentiality of Alcohol and Drug Abuse Patient Records regulations: The Federal rules restrict any use of the information to criminally investigate or prosecute any alcohol or drug abuse patient.[facility] HospitalIn the event this information is protected by the Federal Confidentiality of Alcohol and Drug Abuse Patient Records regulations: The Federal rules restrict any use of the information to criminally investigate or prosecute any alcohol or drug abuse patient.[facility] HospitalIn the event this information is protected by the Federal Confidentiality of Alcohol and Drug Abuse Patient Records regulations: The Federal rules restrict any use of the information to criminally investigate or prosecute any alcohol or drug abuse patient.[facility] HospitalIn the event this information is protected by the Federal Confidentiality of Alcohol and Drug Abuse Patient Records regulations: The Federal rules restrict any use of the information to criminally investigate or prosecute any alcohol or drug abuse patient.[facility] HospitalIn the event this information is protected by the Federal Confidentiality of Alcohol and Drug Abuse Patient Records regulations: The Federal rules restrict any use of the information to criminally investigate or prosecute any alcohol or drug abuse patient.[facility] HospitalIn the event this information is protected by the Federal Confidentiality of Alcohol and Drug Abuse Patient Records regulations: The Federal rules restrict any use of the information to criminally investigate or prosecute any alcohol or drug abuse patient.[facility] HospitalIn the event this information is protected by the Federal Confidentiality of Alcohol and Drug Abuse Patient Records regulations: The Federal rules restrict any use of the information to criminally investigate or prosecute any alcohol or drug abuse patient.[facility] HospitalIn the event this information is protected by the Federal Confidentiality of Alcohol and Drug Abuse Patient Records regulations: The Federal rules restrict any use of the information to criminally investigate or prosecute any alcohol or drug abuse patient.[facility] HospitalIn the event this information is protected by the Federal Confidentiality of Alcohol and Drug Abuse Patient Records regulations: The Federal rules restrict any use of the information to criminally investigate or prosecute any alcohol or drug abuse patient.[facility] HospitalIn the event this information is protected by the Federal Confidentiality of Alcohol and Drug Abuse Patient Records regulations: The Federal rules restrict any use of the information to criminally investigate or prosecute any alcohol or drug abuse patient.[facility] HospitalIn the event this information is protected by the Federal Confidentiality of Alcohol and Drug Abuse Patient Records regulations: The Federal rules restrict any use of the information to criminally investigate or prosecute any alcohol or drug abuse patient.[facility] HospitalIn the event this information is protected by the Federal Confidentiality of Alcohol and Drug Abuse Patient Records regulations: The Federal rules restrict any use of the information to criminally investigate or prosecute any alcohol or drug abuse patient.[facility] HospitalIn the event this information is protected by the Federal Confidentiality of Alcohol and Drug Abuse Patient Records regulations: The Federal rules restrict any use of the information to criminally investigate or prosecute any alcohol or drug abuse patient.[facility] HospitalIn the event this information is protected by the Federal Confidentiality of Alcohol and Drug Abuse Patient Records regulations: The Federal rules restrict any use of the information to criminally investigate or prosecute any alcohol or drug abuse patient.[facility] HospitalIn the event this information is protected by the Federal Confidentiality of Alcohol and Drug Abuse Patient Records regulations: The Federal rules restrict any use of the information to criminally investigate or prosecute any alcohol or drug abuse patient.[facility] HospitalIn the event this information is protected by the Federal Confidentiality of Alcohol and Drug Abuse Patient Records regulations: The Federal rules restrict any use of the information to criminally investigate or prosecute any alcohol or drug abuse patient.[facility] the event this information is protected by the Federal Confidentiality of Alcohol and Drug Abuse Patient Records regulations: The Federal rules restrict any use of the information to criminally investigate or prosecute any alcohol or drug abuse patient.[facility] HospitalIn the event this information is protected by the Federal Confidentiality of Alcohol and Drug Abuse Patient Records regulations: The Federal rules restrict any use of the information to criminally investigate or prosecute any alcohol or drug abuse patient.[facility] HospitalIn the event this information is protected [...] or prosecute any alcohol or drug abuse patient.[facility] HospitalIn the event this information is protected by the Federal Confidentiality of Alcohol and Drug Abuse Patient Records regulations: The Federal rules restrict any use of the information to criminally investigate or prosecute any alcohol or drug abuse patient.[facility] HospitalIn the event this information is protected by the Federal Confidentiality of Alcohol and Drug Abuse Patient Records regulations: The Federal rules restrict any use of the information to criminally investigate or prosecute any alcohol or drug abuse patient.[facility] HospitalIn the event this information is protected by the Federal Confidentiality of Alcohol and Drug Abuse Patient Records regulations: The Federal rules restrict any use of the information to criminally investigate or prosecute any alcohol or drug abuse patient.[facility] HospitalIn the event this information is protected by the Federal Confidentiality of Alcohol and Drug Abuse Patient Records regulations: The Federal rules restrict any use of the information to criminally investigate or prosecute any alcohol or drug abuse patient.[facility] HospitalIn the event this information is protected by the Federal Confidentiality of Alcohol and Drug Abuse Patient Records regulations: The Federal rules restrict any use of the information to criminally investigate or prosecute any alcohol or drug abuse patient.[facility] HospitalIn the event this information is protected by the Federal Confidentiality of Alcohol and Drug Abuse Patient Records regulations: The Federal rules restrict any use of the information to criminally investigate or prosecute any alcohol or drug abuse patient.[facility] HospitalIn the event this information is protected by the Federal Confidentiality of Alcohol and Drug Abuse Patient Records regulations: The Federal rules restrict any use of the information to criminally investigate or prosecute any alcohol or drug abuse patient.[facility] HospitalIn the event this information is protected by the Federal Confidentiality of Alcohol and Drug Abuse Patient Records regulations: The Federal rules restrict any use of the information to criminally investigate or prosecute any alcohol or drug abuse patient.[facility] HospitalIn the event this information is protected by the Federal Confidentiality of Alcohol and Drug Abuse Patient Records regulations: The Federal rules restrict any use of the information to criminally investigate or prosecute any alcohol or drug abuse patient.[facility] HospitalIn the event this information is protected by the Federal Confidentiality of Alcohol and Drug Abuse Patient Records regulations: The Federal rules restrict any use of the information to criminally investigate or prosecute any alcohol or drug abuse patient.[facility] HospitalIn the event this information is protected by the Federal Confidentiality of Alcohol and Drug Abuse Patient Records regulations: The Federal rules restrict any use of the information to criminally investigate or prosecute any alcohol or drug abuse patient.[facility] HospitalIn the event this information is protected by the Federal Confidentiality of Alcohol and Drug Abuse Patient Records regulations: The Federal rules restrict any use of the information to criminally investigate or prosecute any alcohol or drug abuse patient.[facility] HospitalIn the event this information is protected by the Federal Confidentiality of Alcohol and Drug Abuse Patient Records regulations: The Federal rules restrict any use of the information to criminally investigate or prosecute any alcohol or drug abuse patient.[facility] HospitalIn the event this information is protected by the Federal Confidentiality of Alcohol and Drug Abuse Patient Records regulations: The Federal rules restrict any use of the information to criminally investigate or prosecute any alcohol or drug abuse patient.[facility] HospitalIn the event this information is protected by the Federal Confidentiality of Alcohol and Drug Abuse Patient Records regulations: The Federal rules restrict any use of the information to criminally investigate or prosecute any alcohol or drug abuse patient.[facility] HospitalIn the event this information is protected by the Federal Confidentiality of Alcohol and Drug Abuse Patient Records regulations: The Federal rules restrict any use of the information to criminally investigate or prosecute any alcohol or drug abuse patient.[facility] HospitalIn the event this information is protected by the Federal Confidentiality of Alcohol and Drug Abuse Patient Records regulations: The Federal rules restrict any use of the information to criminally investigate or prosecute any alcohol or drug abuse patient.[facility] HospitalIn the event this information is protected by the Federal Confidentiality of Alcohol and Drug Abuse Patient Records regulations: The Federal rules restrict any use of the information to criminally investigate or prosecute any alcohol or drug abuse patient.[facility] HospitalIn the event this information is protected by the Federal Confidentiality of Alcohol and Drug Abuse Patient Records regulations: The Federal rules restrict any use of the information to criminally investigate or prosecute any alcohol or drug abuse patient.[facility] HospitalIn the event this information is protected by the Federal Confidentiality of Alcohol and Drug Abuse Patient Records regulations: The Federal rules restrict any use of the information to criminally investigate or prosecute any alcohol or drug abuse patient.[facility] HospitalIn the event this information is protected by the Federal Confidentiality of Alcohol and Drug Abuse Patient Records regulations: The Federal rules restrict any use of the information to criminally investigate or prosecute any alcohol or drug abuse patient.[facility] HospitalIn the event this information is protected by the Federal Confidentiality of Alcohol and Drug Abuse Patient Records regulations: The Federal rules restrict any use of the information to criminally investigate or prosecute any alcohol or drug abuse patient.[facility] HospitalIn the event this information is protected by the Federal Confidentiality of Alcohol and Drug Abuse Patient Records regulations: The Federal rules restrict any use of the information to criminally investigate or prosecute any alcohol or drug abuse patient.[facility] HospitalIn the event this information is protected by the Federal Confidentiality of Alcohol and Drug Abuse Patient Records regulations: The Federal rules restrict any use of the information to criminally investigate or prosecute any alcohol or drug abuse patient.[facility] HospitalIn the event this information is protected by the Federal Confidentiality of Alcohol and Drug Abuse Patient Records regulations: The Federal rules restrict any use of the information to criminally investigate or prosecute any alcohol or drug abuse patient.[facility] HospitalIn the event this information is protected by the Federal Confidentiality of Alcohol and Drug Abuse Patient Records regulations: The Federal rules restrict any use of the information to criminally investigate or prosecute any alcohol or drug abuse patient.[facility] HospitalIn the event this information is protected by the Federal Confidentiality of Alcohol and Drug Abuse Patient Records regulations: The Federal rules restrict any use of the information to criminally investigate or prosecute any alcohol or drug abuse patient.[facility] HospitalIn the event this information is protected by the Federal Confidentiality of Alcohol and Drug Abuse Patient Records regulations: The Federal rules restrict any use of the information to criminally investigate or prosecute any alcohol or drug abuse patient.[facility] HospitalIn the event this information is protected by the Federal Confidentiality of Alcohol and Drug Abuse Patient Records regulations: The Federal rules restrict any use of the information to criminally investigate or prosecute any alcohol or drug abuse patient.[facility] HospitalIn the event this information is protected by the Federal Confidentiality of Alcohol and Drug Abuse Patient Records regulations: The Federal rules restrict any use of the information to criminally investigate or prosecute any alcohol or drug abuse patient.[facility] HospitalIn the event this information is protected by the Federal Confidentiality of Alcohol and Drug Abuse Patient Records regulations: The Federal rules restrict any use of the information to criminally investigate or prosecute any alcohol or drug abuse patient.[facility] HospitalIn the event this information is protected by the Federal Confidentiality of Alcohol and Drug Abuse Patient Records regulations: The Federal rules restrict any use of the information to criminally investigate or prosecute any alcohol or drug abuse patient.[facility] HospitalIn the event this information is protected by the Federal Confidentiality of Alcohol and Drug Abuse Patient Records regulations: The Federal rules restrict any use of the information to criminally investigate or prosecute any alcohol or drug abuse patient.[facility] HospitalIn the event this information is protected by the Federal Confidentiality of Alcohol and Drug Abuse Patient Records regulations: The Federal rules restrict any use of the information to criminally investigate or prosecute any alcohol or drug abuse patient.[facility] HospitalIn the event this information is protected by the Federal Confidentiality of Alcohol and Drug Abuse Patient Records regulations: The Federal rules restrict any use of the information to criminally investigate or prosecute any alcohol or drug abuse patient.[facility] HospitalIn the event this information is protected by the Federal Confidentiality of Alcohol and Drug Abuse Patient Records regulations: The Federal rules restrict any use of the information to criminally investigate or prosecute any alcohol or drug abuse patient.[facility] HospitalIn the event this information is protected by the Federal Confidentiality of Alcohol and Drug Abuse Patient Records regulations: The Federal rules restrict any use of the information to criminally investigate or prosecute any alcohol or drug abuse patient.[facility] HospitalIn the event this information is protected by the Federal Confidentiality of Alcohol and Drug Abuse Patient Records regulations: The Federal rules restrict any use of the information to criminally investigate or prosecute any alcohol or drug abuse patient.[facility] HospitalIn the event this information is protected by the Federal Confidentiality of Alcohol and Drug Abuse Patient Records regulations: The Federal rules restrict any use of the information to criminally investigate or prosecute any alcohol or drug abuse patient.[facility] HospitalIn the event this information is protected by the Federal Confidentiality of Alcohol and Drug Abuse Patient Records regulations: The Federal rules restrict any use of the information to criminally investigate or prosecute any alcohol or drug abuse patient.[facility] HospitalIn the event this information is protected by the Federal Confidentiality of Alcohol and Drug Abuse Patient Records regulations: The Federal rules restrict any use of the information to criminally investigate or prosecute any alcohol or drug abuse patient.[facility] HospitalIn the event this information is protected by the Federal Confidentiality of Alcohol and Drug Abuse Patient Records regulations: The Federal rules restrict any use of the information to criminally investigate or prosecute any alcohol or drug abuse patient.[facility] HospitalIn the event this information is protected by the Federal Confidentiality of Alcohol and Drug Abuse Patient Records regulations: The Federal rules restrict any use of the information to criminally investigate or prosecute any alcohol or drug abuse patient.[facility] Reason for Visit (unrecogniz ed section [...] STEM W/O CONTRAST MATERIAL Stas Mora MD [address] [id number] [facility] [place] [id number] Referral ID Status Reason Start Date Expiration Date V isits Requested Visits Authorized [id number] Closed Auto-Generat ed Referral Patient Cleared - [...] anxiety (HCC) Procedures CONSULT TO GERIATRICS OFFICE/OUTPATIENT [facility] 60 MINUTES Stas Mora MD [address] [id number] Referral ID Status Reason Start Date Expiration Date V isits Requested Visits Authorized [id number] Closed PCP Requested Referral 04/25/2024 04/25/2025 1 1 Reason Onset Date Comments Anticoagulation Telephone Fu 05/25/2024 Lab INR Result Reason Comments Appointment Reschedule for germark tric f/u Reason Comments Follow Up Geriatric follow up MRI results, with daughter Iraj and Maria Guadalupe, shuffling gait, did not remember ' name. Reason Comments Lump Elbow Reason Comments Follow Up Reason Comments Medication Problem Cost Care Teams (unrecognized sec tion and content) Drafting Layout Man Relationship Specialty Start Date End Date Stas Mora MD [address] [place] [address] PCP - General 08/02/08, Pharmacist [address] [place] [address] Pharmacist Pharmacy 10/19/19 Drafting Layout Man Relationship Specialty Start Date End Date Stas Mora MD [address] [place] [address] PCP - General 08/02/08, Pharmacist [address]873 [facility] [place] [address] Pharmacist Pharmacy 10/19/19 Drafting Layout Man Relationship Specialty Start Date End Date Stas Mora MD [address] [place] [address] PCP - General 08/02/08, Pharmacist [address]342 [facility] [place] [address] Pharmacist Pharmacy 10/19/19 Drafting Layout Man Relationship Specialty Start Date End Date Stas Mora MD [address] [place] [address] PCP - General 08/02/08, Pharmacist 89243 [facility] [place] [address] Pharmacist Pharmacy 10/19/19 Drafting Layout Man Relationship Specialty Start Date End Date Stas Mora MD [address] [place] [address] PCP - General 08/02/08, Pharmacist 18269 [facility] [place] [address] Pharmacist Pharmacy 10/19/19 Drafting Layout Man Relationship Specialty Start Date End Date Stas Mora MD [address] [facility] [place] [address] PCP - General 08/02/08, Pharmacist [address]93 [facility] [place] [address] Pharmacist Pharmacy 10/19/19 Drafting Layout Man Relationship Specialty Start Date End Date Stas Mora MD [address] [facility] [place] [address] PCP - General 08/02/08, Pharmacist [id number] [place] [address], [place] [address] Pharmacist Pharmacy 10/19/19 Drafting Layout Man Relationship Specialty Start Date End Date Stas Mora MD [address] [place] [address] PCP - General 08/02/08, Pharmacist [address]65 [facility] [place] [address] Pharmacist Pharmacy 10/19/19 Drafting Layout Man Relationship Specialty Start Date End Date Stas Mora MD [address] [facility] [place] [address] PCP - General 08/02/08, Pharmacist [address]43 [facility] [place] [address] Pharmacist Pharmacy 10/19/19 Drafting Layout Man Relationship Specialty Start Date End Date Stas Mora MD [address] [facility] [place] [address] PCP - General 08/02/08, Pharmacist 12130 [facility] [place] [address] Pharmacist Pharmacy 10/19/19 Drafting Layout Man Relationship Specialty Start Date End Date Stas Mora MD [address] [facility] [place] [address] PCP - General 08/02/08, Pharmacist [address]40 [facility] [place] [address] Pharmacist Pharmacy 10/19/19 Drafting Layout Man Relationship Specialty Start Date End Date Stas Mora MD [address] [facility] [place] [address] PCP - General 08/02/08, Pharmacist 69448 [facility] [place] [address] Pharmacist Pharmacy 10/19/19 Drafting Layout Man Relationship Specialty Start Date End Date Stas Mora MD [address] [facility] [place] [address] PCP - General 08/02/08, Pharmacist 39038 [facility] [place] [address] Pharmacist Pharmacy 10/19/19 Drafting Layout Man Relationship Specialty Start Date End Date Stas Mora MD [address] [facility] [place] [address] PCP - General 08/02/08, Pharmacist [address]40 [facility] [place] [address] Pharmacist Pharmacy 10/19/19 Drafting Layout Man Relationship Specialty Start Date End Date Stas Mora MD [address] [facility] [place] [address] PCP - General 08/02/08, Pharmacist 89343 [facility] [place] [address] Pharmacist Pharmacy 10/19/19 Drafting Layout Man Relationship Specialty Start Date End Date Sats Mora MD [address] [facility] [place] [address] PCP - General 08/02/08, Pharmacist 24265 [facility] [place] [address] Pharmacist Pharmacy 10/19/19 Drafting Layout Man Relationship Specialty Start Date End Date Stas Mora MD [address] [place] [address] PCP - General 08/02/08, Pharmacist [address] [place] [address] Pharmacist Pharmacy 10/19/19 Drafting Layout Man Relationship Specialty Start Date End Date Stas Mora MD [address] [place] [address] PCP - General 08/02/08, Pharmacist [address] [place] [address] Pharmacist Pharmacy 10/19/19 Drafting Layout Man Relationship Specialty Start Date End Date Stas Mora MD [address] [place] [address] PCP - General 08/02/08, Pharmacist [address] [place] [address] Pharmacist Pharmacy 10/19/19 Drafting Layout Man Relationship Specialty Start Date End Date Stas Mora MD [address] [place] [address] PCP - General 08/02/08, Pharmacist [address] [place] [address] Pharmacist Pharmacy 10/19/19 Drafting Layout Man Relationship Specialty Start Date End Date Stas Mora MD [address] [place] [address] PCP - General 08/02/08, Pharmacist [address] [place] [address] Pharmacist Pharmacy 10/19/19 Team Status: Active Member Role Status Dates Dr. Stas Mora MD Family Provider Active Dr. Stas Mora MD Primary Care Provider Active Team Status: Inactive Member Role Status Dates Dr. Stas Mora MD Primary Care Provider Active Dr. Brian Cunningham DO Emergency Provider Active Drafting Layout Man Relationship Specialty Start Date End Date Stas Mora MD [address] [facility] [place] [address] PCP - General 08/02/08, Pharmacist 26676 [facility] [place] [address] Pharmacist Pharmacy 10/19/19 Drafting Layout Man Relationship Specialty Start Date End Date Stas Mora MD [address] [place] [address] PCP - General 08/02/08, Pharmacist [address]509 [facility] [place] [address] Pharmacist Pharmacy 10/19/19 Drafting Layout Man Relationship Specialty Start Date End Date Stas Mora MD [address] [facility] [place] [address] PCP - General 08/02/08, Pharmacist 27363 [facility] [place] [address] Pharmacist Pharmacy 10/19/19 Drafting Layout Man Relationship Specialty Start Date End Date Stas Mora MD [address] [facility] [place] [address] PCP - General 08/02/08, Pharmacist 62668 [facility] [place] [address] Pharmacist Pharmacy 10/19/19 Drafting Layout Man Relationship Specialty Start Date End Date Stas Mora MD [address] [facility] [place] [address] PCP - General 08/02/08, Pharmacist [address] [place] [address] Pharmacist Pharmacy 10/19/19 Drafting Layout Man Relationship Specialty Start Date End Date Stas Mora MD [address] [facility] [place] [address] PCP - General 08/02/08, Pharmacist [address] [place] [address] Pharmacist Pharmacy 10/19/19 Drafting Layout Man Relationship Specialty Start Date End Date Stas Mora MD [address] [place] [address] PCP - General 08/02/08, Pharmacist [address] [place] [address] Pharmacist Pharmacy 10/19/19 Drafting Layout Man Relationship Specialty Start Date End Date Stas Mora MD [address] [place] [address] PCP - General 08/02/08, Pharmacist [address] [place] [address] Pharmacist Pharmacy 10/19/19 Drafting Layout Man Relationship Specialty Start Date End Date Stas oMra MD [address] [place] [address] PCP - General 08/02/08, Pharmacist [address] [place] [address] Pharmacist Pharmacy 10/19/19 Drafting Layout Man Relationship Specialty Start Date End Date Stas Mora MD [address] [place] [address] PCP - General 08/02/08, Pharmacist [address] [place] [address] Pharmacist Pharmacy 10/19/19 Drafting Layout Man Relationship Specialty Start Date End Date Stas Mora MD [address] [facility] [place] [address] PCP - General 08/02/08, Pharmacist [address] [place] [address] Pharmacist Pharmacy 10/19/19 Drafting Layout Man Relationship Specialty Start Date End Date Stas Mora MD [address] [facility] [place] [address] PCP - General 08/02/08, Pharmacist [address] [place] [address] Pharmacist Pharmacy 10/19/19 Drafting Layout Man Relationship Specialty Start Date End Date Stas Mora MD [address] [place] [address] PCP - General 08/02/08, Pharmacist [address]004 [facility] [place] [address] Pharmacist Pharmacy 10/19/19 Drafting Layout Man Relationship Specialty Start Date End Date Stas Mora MD [address] [place] [address] PCP - General 08/02/08, Pharmacist [address] [place] [address] Pharmacist Pharmacy 10/19/19 Drafting Layout Man Relationship Specialty Start Date End Date Stas Mora MD [address] [facility] [place] [address] PCP - General 08/02/08, Pharmacist [address] [place] [address] Pharmacist Pharmacy 10/19/19 Drafting Layout Man Relationship Specialty Start Date End Date Stas Mora MD [address] [place] [address] PCP - General 08/02/08, Pharmacist [address] [place] [address] Pharmacist Pharmacy 10/19/19 Drafting Layout Man Relationship Specialty Start Date End Date Stas Mora MD [address] [place] [address] PCP - General 08/02/08, Pharmacist [address] [place] [address] Pharmacist Pharmacy 10/19/19 Drafting Layout Man Relationship Specialty Start Date End Date Stas Mora MD [address] [place] [address] PCP - General 08/02/08, Pharmacist [phone] [place] [address] Pharmacist Pharmacy 10/19/19 Drafting Layout Man Relationship Specialty Start Date End Date Stas Mora MD [address] [place] [address] PCP - General 08/02/08, Pharmacist [address] [place] [address] Pharmacist Pharmacy 10/19/19 Drafting Layout Man Relationship Specialty Start Date End Date Stas Mora MD [address] [place] [address] PCP - General 08/02/08, Pharmacist [address] [place] [address] Pharmacist Pharmacy 10/19/19 Drafting Layout Man Relationship Specialty Start Date End Date Stas Mora MD [address] [place] [address] PCP - General 08/02/08, Pharmacist [address]99 [facility] [place] [address] Pharmacist Pharmacy 10/19/19 Drafting Layout Man Relationship Specialty Start Date End Date Stas Mora MD [address] [place] [address] PCP - General 08/02/08, Pharmacist [address]16 [facility] [place] [address] Pharmacist Pharmacy 10/19/19 Jenna Fitzpatrick, 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METAL LEAF LAYER [address] [place] [address] Bi Report Developer Family Medicine 02/28/24 Drafting Layout Man Relationship Specialty Start Date End Date Stas Mroa MD [address] [place] [address] PCP - General 08/02/08, Pharmacist [address] [place] [address] Pharmacist Pharmacy 10/19/19 Jenna Fitzpatrick, 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METAL LEAF LAYER [address] [place] [address] Bi Report Developer Family Medicine 02/28/24 Elvis Kearney, 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METAL LEAF LAYER [address] [place] [address] Bi Report Developer Family Medicine 03/08/24 Drafting Layout Man Relationship Specialty Start Date End Date Stas Mora MD [address] [place] [address] PCP - General 08/02/08, Pharmacist [address]12 [facility] [place] [address] Pharmacist Pharmacy 10/19/19 Jenna Fitzpatrick APRN.METAL LEAF LAYER [address] [facility] [place] [address] Bi Report Developer Family Medicine 02/28/24 Elvis Kearney APRN.METAL LEAF LAYER [address] [facility] [place] [address] [facility] 03/08/24 Drafting Layout Man Relationship Specialty Start Date End Date Stas Mora MD [address] [facility] [place] [address] PCP - General 08/02/08, Pharmacist [address] [place] [address] Pharmacist Pharmacy 10/19/19 Jenna Fitzpatrick APRN.METAL LEAF LAYER [address] [facility] [place] [address] [facility] 02/28/24 Elvis Kearney APRN.METAL LEAF LAYER [address] [facility] [place] [address] Bi [facility] 03/08/24 Drafting Layout Man Relationship Specialty Start Date End Date Stas Mora MD [address] [facility] [place] [address] PCP - General 08/02/08, Pharmacist [address] [place] [address] Pharmacist Pharmacy 10/19/19 Jenna Fitzpatrick APRN.METAL LEAF LAYER [address] [facility] [place] [address] Bi Report Developer Family Medicine 02/28/24 Elvis Kearney APRN.METAL LEAF LAYER [address] [facility] [place] [address] Bi Report Developer Family [facility] 03/08/24 Drafting Layout Man Relationship Specialty Start Date End Date Stas Mora MD [address] [place] [address] PCP - General 08/02/08, Pharmacist [address] [place] [address] Pharmacist Pharmacy 10/19/19 Jenna Fitzpatrick APRN.METAL LEAF LAYER [address] [place] [address] Bi Report Developer Family Medicine 02/28/24 Elvis Kearney APRN.METAL LEAF LAYER [address] [place] [address] [facility] 03/08/24 Drafting Layout Man Relationship Specialty Start Date End Date Stas Mora MD [address] [place] [address] PCP - General 08/02/08, Pharmacist [address] [place] [address] Pharmacist Pharmacy 10/19/19 Jenna Fitzpatrick APRN.METAL LEAF LAYER [address] [place] [address] Bi Report Developer Family Medicine 02/28/24 Elvis Kearney APRN.METAL LEAF LAYER [address] [place] [address] Bi Report Developer Family [facility] 03/08/24 Drafting Layout Man Relationship Specialty Start Date End Date Stas Mora MD [address] [place] [address] PCP - General 08/02/08, Pharmacist [address] [place] [address] Pharmacist Pharmacy 10/19/19 Jenna Fitzpatrick APRN.METAL LEAF LAYER [address] [place] [address] Bi Report Developer Family Medicine 02/28/24 Elvis Kearney APRN.METAL LEAF LAYER [address] [place] [address] Bi Report Developer [facility] 03/08/24 Drafting Layout Man Relationship Specialty Start Date End Date Stas Mora MD [address] [place] [address] PCP - General 08/02/08, Pharmacist [address] [place] [address] Pharmacist Pharmacy 10/19/19 Jenna Fitzpatrick APRN.METAL LEAF LAYER [address] [place] [address] Bi Report Developer Family Medicine 02/28/24 Elvis Kearney 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METAL LEAF LAYER [address] [place] [address] Bi Report Developer [facility] 03/08/24 Drafting Layout Man Relationship Specialty Start Date End Date Stas Mora MD [address] [place] [address] PCP - General 08/02/08, Pharmacist 25254 [facility] [place] [address] Pharmacist Pharmacy 10/19/19 Jenna Fitzpatrick APRN.METAL LEAF LAYER [address] [facility] [place] [address] [facility] 02/28/24 Elvis Kearney APRN.METAL LEAF LAYER [address] [facility] [place] [address] Bi Report [facility] 03/08/24 Drafting Layout Man Relationship Specialty Start Date End Date Stas Mora MD [address] [place] [address] PCP - General 08/02/08, Pharmacist [address] [place] [address] Pharmacist Pharmacy 10/19/19 Jenna Fitzpatrick APRN.METAL LEAF LAYER [address] [place] [address] Bi Report [facility] 02/28/24 Elvis Kearney APRN.METAL LEAF LAYER [address] [place] [address] [facility] 03/08/24 Drafting Layout Man Relationship Specialty Start Date End Date Stas Mora MD [address] [place] [address] PCP - General 08/02/08, Pharmacist [address] [place] [address] Pharmacist Pharmacy 10/19/19 Jenna Fitzpatrick APRN.METAL LEAF LAYER [address] [place] [address] Bi Report [facility] 02/28/24 Elvis Kearney APRN.METAL LEAF LAYER [address] [place] [address] Bi Report Developer Family [facility] 03/08/24 Drafting Layout Man Relationship Specialty Start Date End Date Stas Mora MD [address] [place] [address] PCP - General 08/02/08, Pharmacist [address] [place] [address] Pharmacist Pharmacy 10/19/19 Jenna Fitzpatrick 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METAL LEAF LAYER [address] [place] [address] Bi Report Developer Family [facility] 02/28/24 Elvis Kearney 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METAL LEAF LAYER [address] [place] [address] [facility] 03/08/24 Drafting Layout Man Relationship Specialty Start Date End Date Stas Mora MD [address] [place] [address] PCP - General 08/02/08, Pharmacist [address] [place] [address] Pharmacist Pharmacy 10/19/19 Jenna Fitzpatrick 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METAL LEAF LAYER [address] [place] [address] [facility] 02/28/24 Elvis Kearney 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METAL LEAF LAYER [address] [place] [address] [facility] 03/08/24 Drafting Layout Man Relationship Specialty Start Date End Date Stas Mora MD [address] [place] [address] PCP - General 08/02/08, Pharmacist [address] [place] [address] Pharmacist Pharmacy 10/19/19 Jenna Fitzpatrick APRN.METAL LEAF LAYER [address] [place] [address] Bi Report Developer Family Medicine 02/28/24 Elvis Kearney APRN.METAL LEAF LAYER [address] [place] [address] Bi Report Developer Family [facility] 03/08/24 Drafting Layout Man Relationship Specialty Start Date End Date Stas Mora MD [address] [place] [address] PCP - General 08/02/08, Pharmacist [address] [place] [address] Pharmacist Pharmacy 10/19/19 Jenna Fitzpatrick APRN.METAL LEAF LAYER [address] [place] [address] Bi Report Developer Family Medicine 02/28/24 Elvis Kearney APRN.METAL LEAF LAYER [address] [place] [address] Bi Report Developer Family [facility] 03/08/24 Drafting Layout Man Relationship Specialty Start Date End Date Stas Mora MD [address] [place] [address] PCP - General 08/02/08, Pharmacist [address] [place] [address] Pharmacist Pharmacy 10/19/19 Jenna Fitzpatrick APRN.METAL LEAF LAYER [address] [place] [address] Bi Report Developer Family Medicine 02/28/24 Elvis Kearney APRN.METAL LEAF LAYER [address] [facility] [place] [address] Bi Report Developer [facility] 03/08/24 Drafting Layout Man Relationship Specialty Start Date End Date Stas Mora MD [address] [place] [address] PCP - General 08/02/08, Pharmacist [id number] [place] [address] Pharmacist Pharmacy 10/19/19 Elvis Kearney APRN.[employer] [address] [place] [address] [facility] Drafting Layout Man Relationship Specialty Start Date End Date Stas Mora MD [address] [place] [address] PCP - General 08/02/08, Pharmacist [id number] [facility] [place] [address] Pharmacist Pharmacy 10/19/19 Elvis Kearney APRN.[employer] [address] [place] [address] [facility] 03/08/24 Team Status: Active Member Role [...] Provider Active Sta rt: September 06, 2024 Drafting Layout Man Relationship Specialty Start Date End Date Stas Mora MD [address] [place], [place] [id number] PCP - General 08/02/08 13, Pharmacist [id number] [place] [address] Pharmacist Pharmacy 10/19/19 Elvis Kearney APRN.[employer] [address] [place], [place] [id number] Bi Report Developer Family [facility] 03/08/24 Team Status: Active Member [...] Active Start: September 02, 2024 Dr. Kathy Welsl MD Other Provider Active St art: September [...] 2024 End: September 07, 2024 Halina Carmona DISPATCHER [employer]POS[employer], DISPATCHER [employer] DISPOSAL-C Attending Provider Active Start: September 07, 2024 [...] End: September 08, 2024 Halina Carmona NP, DISPATCHER [employer]POSAL-C Attending Provider Active Start: September 08, 2024 End: September 08, 2024 Team Status: Active Member Role/Relationship Status Dates Dr. Stas Mora MD Primary Care Provider Active Start: September 12, 2024 Shayy GAAM MD Attending Provider Active Start: September 12, [...] End: September 30, 2024 Halina Carmona NP, DISPATCHER [employer] DISPOSAL-C Attending Provider Active Start: September 30, 2024 [...] End: October 20, 2024 Halina Carmona NP, DISPATCHER [employer] DISPOSAL-C Attending Provider Active Start: October 20, 2024 [...] 30, 2024 End: September 30, 2024 Halina Carmoan NP, DISPATCHER [employer] DISPOSAL-C Attending Provider Active Start: September 30, 2024 [...] 2024 End: October 20, 2024 Halina Carmona DISPATCHER [employer] DISPOSAL, DISPATCHER RADIOACT[employer] DISPOSAL-C Attending Provider Active Start: October 20, 2024 [...] BE BASED ON THE PRIMARY CLINICAL RECORDS. [facility]. provides no warranty or guarantee of the accuracy or completeness of information in this document.
[2025-01-10 08:23] LABS: INR Fingerstick 1.9
== END ==
LOC: OLS.WHLCAR 05:00
PROVIDERS: PCP Family Medicine; Visit Provider Internal Medicine
DX: I48.91 Unspecified atrial fibrillation (principal); F03.918 Unspecified dementia, unspecified severity, with other behavioral disturbance; I10 Essential (primary) hypertension; I25.10 Atherosclerotic heart disease of native coronary artery without angina pectoris
CPT/HCPCS: 36416; 85610

== ENCOUNTER → 2025-01-23 | Outpatient (REF) | payer MEDICARE, SELFPAY ==
--- OUTSIDE RECORDS SUMMARY | 2025-01-23 04:11 | XMS RPT_ITS | CCD ---
Author Organization [facility] Care Team Providers Care Building Supplies Salesperson Retail Name Role Phone TEE, DARRELL E Unavailable [...] Unavailable STERLING LYNCH DO Attending Unavailable Tannhof PRINTING SCREEN ASSEMBLER.CUSTOMER ACQUISITION MANAGER, Jenna Unavailable Caio PRINTING SCREEN ASSEMBLER.CUSTOMER ACQUISITION MANAGER, Elvis Unavailable LUCIANA CISNEROS Referring Unavailable STAS MORA Primary Care Unavailable Tannhof PRINTING SCREEN ASSEMBLER.CUSTOMER ACQUISITION MANAGER, Jenna Unavailable Unavail able Tannhof PRINTING SCREEN ASSEMBLER.CUSTOMER ACQUISITION MANAGER, Jenna Unavailable Morgan POLANCO, Dr. Ruiz Primary Care Provider Jose Miguel POLANCO, Dr. Jansen Emergency Provider [phone] Priscilla POLANCO, Dr. Kathy Bearden Admit Provider Priscilla POLANCO, Dr. Kathy Bearden Attending Provider Priscilla POLANCO, Dr. Kathy Bearden Other Provider Alberto POLANCO, Dr. Shoemaker Attending Provider Alberto POLANCO, Dr. Shoemaker Other Provider Shayy Curtis MD Attending Provider UnavailShayy Hernandez MD Referring Provider Unavailrachel Carmona NP-CHalina Attending Provider Ever POLANCO, Dr. Lucas Attending Provider Morgan POLANCO, Dr. Ruiz Primary Care Physician Shayy Curtis MD Attending Physician Unavail able Ever POLANCO, Dr. Lucas Attending Physician Kristine ZINC FURNACE CHARGER-CHalina Attending Physician Shayy Spencer Attending Unavailabl Stas Caban Primary Care Unavailable Morgan, Stas Primary Care Unavailable Koram, Kathy Monisha Consulting Unavailable Koram, Kathy Monisha Admitting Unavailable Navid Dominguez Attending Unavailable Shayy Spencer Attending Unavailabl radha Mora, Stas Primary Care Unavailable MartinghShayy Kaplan Attending Unavailabl radha Mora, Stas Primary Care Unavailable Shayy Spencer Attending Unavailabl radha Mora, Stas Primary Care Unavailable Elderelliot, Stas Primary Care Unavailable Shayy Spencer Attending Unavailabl radha Mora, Stas Primary Care Unavailable Koram, Kathy Monisha Attending Unavailable Koram, Kathy Monisha Admitting Unavailable Koram, Kathy Monisha Consulting Unavailable Alberto, Navid Attending Unavailable Alberto, Navid [...] Primary Care Unavailable Oleghe, Efewongbe Attending Unavailable Tickton, Halina Attending Unavailable Elderbrock, Stas Primary Care Unavailable Tickton, Halina Attending Unavailable Elderbrock, Stas Primary Care Unavailable Tickton, Halina Attending Unavailable Elderbrock, Stas Primary Care Unavailable Elderbrock, Stas Primary Care Unavailable Oleghe, Efewongbe Attending Unavailable Elderbrock, Stas Primary Care Unavailable Tickton, Halina Attending Unavailable Tickton, Halina Attending Unavailable Elderbrock, Stas Primary Care [...] Care Unavailable ELDERBROCK, STAS D Referring Unavailable Medications Current Medications Medication Drug Class(es) Dates Sig (Normalized) Sig (Original) atorvastatin 40 mg oral tablet (20 sources) HMG-CoA Reductase Inhibitor Start: 12-22-2021 End: 05-26-2024 take 1 tablet by mouth at bedtime Start: 07-16-2021 End: 07-17-2021 take 1 tablet [...] unspecified vessel or lesion type, unspecified whether [place] or transplanted heart Take 1 tablet by [...] take 1 tablet by mouth once daily Comment on above: Take by mouth. Take 1 tablet by darrian th once daily. memantine hydrochloride 10 mg oral tablet (20 sources) W-cluybk-J-aspartate Receptor Antagonist Start: 06-02-19 End: 11-29-19 take 1 tablet by mouth twice daily metoprolol tartrate 50 mg oral tablet (1 source) beta-Adrenergic Jazmin Start: 01-02-20 Lopressor 50 mg oral tablet Dose : 25 mg = 0.5 tab(s), PO, BID, 0 Refill(s), current med (Hx) Start Date: 01/01/06 Status: Ordered polyethylene glycol 3350 [id number] mg powder for oral solution (12 sources) Osmotic Laxative Start: 09-07-19 24 hr rivastigmine 0.192 mg/hr transdermal system (17 sources) Start: 09-02-19 Start: 08-31-2024 apply 1 dose transde rmal [...] on above: Take 1 capsule by mo [facility] daily at bedtime. vardenafil 10 mg oral tablet (1 source) Phosphodiesterase 5 Inhibitor Start: 01-01-2006 take 1 tablet by mouth once daily as needed vardenafil 10 mg oral tablet See Instructions, PO daily as needed, 0 Refill(s), current med (Hx) Start Date: 01/01/06 Status: Ordered warfarin sodium 2 mg oral tablet (20 sources) Vitamin K Antagonist Start: 09-06-2024 Start: 01-04-2024 End: 01-03-2025 warfarin (COUMADIN) 3 [...] disease (20 sources) Atherosclerotic heart disease of [place] coronary artery without angina pectoris; Translations: [Coronary atherosclerosis] Onset: 10-07-2005 06-26-2017 Chronic Delirium, dementia, and amnestic and other cognitive disorders (16 sources) Vascular dementia ; Translations: [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, psychotic disturbance, mood disturbance, or anxiety (HCC)] Onset: 04-27-2024 08-14-2023 Chronic Diabetes mellitus without complication (16 sources) Hyperglycemia; Translations: [Hyperglycemia, unspecified] 02-19-2021 Episodic Disorders of lipid metabolism (20 sources) Dyslipidemia; Translations: [Hyperlipidemia, unspecified] Onset: 08-26-2022 Chronic Essential hypertension (20 sources) Benign essential hypertension; Translations: [Essential (primary) hypertension] Onset: 10-07-2005 10-07-2005 Chronic Fluid and electrolyte disorders (16 sources) Lactic acidosis; Translations: [Acidosis] 02-19-2021 Episodic Genitourinary symptoms and ill-defined conditions (1 source) Increased frequency of urination; Translations: [Frequency of micturition] 11-26-2023 Episodic Late effects of cerebrovascular disease (3 sources) Sequela of cerebrovascular accident; Translations: [Unspecified sequelae of cerebral infarction] 06-01-2023 Chronic Malaise and fatigue (15 sources) Asthenia; Translations: [Weakness] 02-10-2023 Episodic Open wounds of head; neck; and trunk (1 source) Laceration of head; Translations: [Laceration without foreign body of other part of head, initial encounter] Onset: 11-17-2022 Episodic Osteoarthritis (20 sources) Localized, primary osteoarthritis; Translations: [Unilateral primary osteoarthritis, unspecified knee] Onset: 10-07-2005 10-07-2005 Chronic Other aftercare (20 sources) Long-term current use of anticoagulant; Translations: [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 project manager (current) use of anticoagulants] Onset: 09-22-2016 Episodic [...] involving nervous and musculoskeletal systems] Episodic Other hereditary and degenerative nervous system [...] caused by tuberculosis or sexually transmitted disease) (16 sources) Community acquired pneumonia; Translations: [Pneumonia, unspecified organism] 02-10-2021 Episodic Residual codes; unclassified (3 sources) Bilateral lower leg edema; Translations: [Localized edema] 09-15-2023 Episodic Residual codes; unclassified (1 source) Hallucinations; Translations: [Hallucinations, unspecified] 08-31-2024 Episodic Spondylosis; intervertebral disc disorders; other back problems (1 source) Acute low back pain; Translations: [Acute right-sided low back pain, unspecified whether sciatica present] 03-12-2020 Episodic Syncope (16 sources) Syncope; Translations: [Syncope and collapse] 09-08-2016 Episodic Thyroid disorders (1 source) Thyroid nodule; Translations: [Nontoxic single thyroid nodule] Chronic Transient cerebral ischemia (19 sources) Transient cerebral ischemia; Translations: [Transient cerebral ischemic attack, unspecified] Chronic Unclassified (1 source) Unknown / UNK(Unknown) Onset: 06-02-2017 Unclassified (1 source) heart cath Onset: 03-23-2005 01-05-2006 Unclassified (1 source) Unspecified dementia, unspecified severity, with other behavioral disturbance; Translations: [Unspecified dementia, unspecified severity, with other behavioral disturbance] Onset: 01-19-2025 Unclassified (1 source) Moderate dementia without behavioral [...] 04-24-2011 Episodic Other aftercare (3 sources) 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 project manager (current) use of anticoagulants; Translations: [Long-term (current) use of anticoagulants] Onset: 07-19-2018 Episodic Other connective tissue disease (2 sources) Other bursitis of elbow, right elbow; Translations: [Olecranon bursitis] Onset: 07-28-2024 07-28-2024 Episodic Other connective tissue disease (1 source) Muscle wasting and atrophy, not elsewhere classified, right lower leg; Translations: [Muscle wasting and atrophy, not elsewhere classified, right lower leg] Onset: 10-12-2024 Episodic Other nervous system disorders (1 source) Other symptoms and signs involving cognitive functions and awareness; Translations: [Cognitive impairment] Onset: 04-27-2024 Episodic Other nervous system disorders (2 sources) Other abnormalities of gait and mobility; Translations: [Shuffling gait] Onset: 04-27-2024 Episodic Other non-traumatic joint disorders (1 [...] and behavioral disorders] Onset: 08-31-2024 09-01-2024 Episodic Superficial injury; contusion (20 sources) Contusion of hip; Translations: [Contusion of unspecified hip, initial encounter] Onset: 09-06-2024 09-01-2024 Episodic Results Test Name Value Interpretation Reference Range Facility [facility] 01-19-2025 [facility] Letter Text Normal [facility] normalized rat io (INR) measurement by fingerstickOrdered By: Shayy Curtis on 01-10-2025 INR Coag (BldC) [Relative time] 1.9 [facility] Comment on above: Critical Value > 4.0 Whole blood prothrombin time Ordered By: Shayy Curtis on 01-10-2025 PT Coag (Bld) [Time] 21.0 s High 11.7-14.9 [facility] Absolute lymphocyte countOrd ered By: Shayy Curtis on 12-21-2024 Lymphocytes Auto (Unsp spec) [#/Vol] 1.31 10*3/uL 0.83-4.51 [facility] Absolute neutrophil countOrd ered By: Shayy Curtis on 12-21-2024 Neutrophils (Bld) [#/Vol] 3.6 10*3/uL 2.0-7.7 [facility] Anion gap in Serum or Plasma Ordered By: Shayy Curtis on 12-21-2024 Anion gap [Moles/Vol] 9 mmol/L 5-15 [facility] Automated lymphocyte count a s percentage of total leukocytesOrdered By: Shayy Curtis on 12-21-2024 Lymphocytes/100 WBC Auto (Unsp spec) 23.0 % 19-41 [facility] BUN/creatinine ratioOrdered By: Shayy Curtis on 12-21-2024 Urea nitrogen/Creatinine [Mass ratio] 32.5 mg/mg High 10-20 [facility] Basophil percentageOrdered B y: Shayy Curtis on 12-21-2024 Basophils/100 WBC (Bld) 0.7 % 0-1 [facility] Carbon dioxide, total [Moles /volume] in Central venous bloodOrdered By: Shayy Curtis on 12-21-2024 CO2 [Moles/Vol] 25.8 mmol/L 21.0-32.0 [facility] Chloride assayOrdered By: Hung Curtis on 12-21-2024 Chloride [Moles/Vol] 107 mmol/L 98-108 [facility] Eosinophil percentageOrdered By: Shayy Curtis on 12-21-2024 Eosinophils/100 WBC (Bld) 2.3 % 0-5 [facility] Erythrocyte distribution wid th ratioOrdered By: Shayy Curtis on 12-21-2024 Erythrocyte distribution width (RBC) [Ratio] 15.9 % High 11.6-14.6 [facility] Erythrocyte distribution wid th standard deviationOrdered By: Shayy Curtis on 12-21-2024 Erythrocyte distribution width (RBC) [Ratio] 49.5 fl High 35.1-43.9 [facility] Glomerular filtration rate ( GFR) estimation/1.73 sq m using serum, plasma, or whole bOrdered By: Shayy Curtis on 12-21-2024 GFR/1.73 sq M.predicted among non-blacks MDRD (S/P/Bld) [Vol rate/Area] 90 mL/min/{1.73_m2} >60 [facility] Comment on above: mL/min/1.73m2 CKD-EP I Creatinine Equation (2020) Hematocrit Auto (Bld) [Volum e fraction]Ordered By: Shayy Curtis on 12-21-2024 Hematocrit (Bld) [Volume fraction] 34.9 % Low 40-54 [facility] Hemoglobin measurementOrdere d By: Shayy Curtis on 12-21-2024 Hemoglobin (Bld) [Mass/Vol] 10.6 g/dL Low 13.0-16.5 [facility] Immature granulocytes/100 WB C Auto (Bld)Ordered By: Shayy Curtis on 12-21-2024 Immature granulocytes/100 WBC (Bld) 0.200 % 0.0-0.9 [facility] Comment on above: IG% - Immature Granu locytes (promyelocytes, myelocytes and metamyelocytes) > 1% indicates that a LEFT SHIFT is Present. MCV (mean corpuscular volume ) determinationOrdered By: Shayy Curtis on 12-21-2024 MCV (RBC) [Entitic vol] 84.5 fL 80-94 [facility] Mean corpuscular hemoglobin (MCH) determinationOrdered By: Shayy Curtis on 12-21-2024 MCH (RBC) [Entitic mass] 25.7 pg Low 27.0-32.0 [facility] Mean corpuscular hemoglobin concentration (MCHC) determinationOrdered By: Shayy Curtis on 12-21-2024 MCHC (RBC) [Mass/Vol] 30.4 g/dL Low 32-36 [facility] Mean platelet volume determi nationOrdered By: Shayy Curtis on 12-21-2024 Platelet mean volume (Bld) [Entitic vol] 10.9 fL 6.2-12.0 [facility] Monocyte percentageOrdered B y: Shayy Curtis on 12-21-2024 Monocytes/100 WBC (Bld) 10.5 % High 0-10 [facility] Neutrophil percentageOrdered By: Shayy Curtis on 12-21-2024 Neutrophils/100 WBC (Bld) 63.3 % 47-70 [facility] Nucleated red blood cell per centageOrdered By: Shayy Curtis on 12-21-2024 Nucleated RBC/100 WBC (Bld) [Ratio] 0 % 0-5 [facility] Platelet countOrdered By: Hung Curtis on 12-21-2024 Platelets (Bld) [#/Vol] 217 10*3/uL 150-450 [facility] Potassium measurement (mass/ volume)Ordered By: Shayy Curtis on 12-21-2024 Potassium (Unsp spec) [Mass/Vol] 3.8 mmol/L 3.3-5.1 [facility] RBC Auto (Bld) [#/Vol]Ordere d By: Shayy Curtis on 12-21-2024 RBC (Bld) [#/Vol] 4.13 10*6/uL Low 4.6-6.2 [facility] Serum creatinine measurement (mass/volume)Ordered By: Shayy Curtis on 12-21-2024 Creatinine [Mass/Vol] 0.66 mg/dL Low 0.70-1.20 [facility] Serum glucose measurement (m ass/volume)Ordered By: Shayy Curtis on 12-21-2024 Glucose [Mass/Vol] 86 mg/dL 70-99 [facility] Serum or plasma calcium alvaro urement (mass/volume)Ordered By: Shayy Curtis on 12-21-2024 Calcium [Mass/Vol] 8.6 mg/dL 7.6-11.0 [facility] Serum or plasma urea nitroge n measurement (mass/volume)Ordered By: Shayy Curtis on 12-21-2024 Urea nitrogen [Mass/Vol] 22 mg/dL High 4-19 [facility] Sodium levelOrdered By: Latrice Curtis on 12-21-2024 Sodium [Moles/Vol] 142 mmol/L 133-145 [facility] White blood cell (WBC) count Ordered By: Shayy Curtis on 12-21-2024 WBC (Bld) [#/Vol] 5.7 10*3/uL 4.4-11.0 [facility] International normalized rat io (INR) calculationOrdered By: Shayy Curtis on 12-14-2024 INR Coag (Bld) [Relative time] 2.5 {INR} [facility] Prothrombin timeOrdered By: Shayy Curtis on 12-14-2024 PT Coag (PPP) [Time] 27.6 s High 11.7-14.9 [facility] normalized rat io (INR) measurement by fingerstickOrdered By: Shayy Curtis on 11-30-2024 INR Coag (BldC) [Relative time] 2.0 [facility] Comment on above: Critical Value > 4.0 Whole blood prothrombin time Ordered By: Shayy Curtis on 11-30-2024 PT Coag (Bld) [Time] 22.0 s High 11.7-14.9 [facility] Bilirubin directOrdered By: Shayy Curtis on 11-25-2024 Bilirubin.direct [Mass/Vol] 0.32 mg/dL High 0.00-0.30 [facility] Bilirubin, totalOrdered By: Shayy Curtis on 11-25-2024 Bilirubin [Mass/Vol] 0.63 mg/dL 0.00-1.30 [facility] Calculated very low density lipoprotein (VLDL) cholesterol measurementOrdered By: Shayy Curtis on 11-25-2024 Calculated very low density lipoprotein (VLDL) cholesterol measurement 10 mg/dL 5-40 [facility] LDL calc ser/plasOrdered By: Shayy Curtis on 11-25-2024 Cholesterol in LDL [Mass/Vol] 41 mg/dL [facility] Comment on above: Ognjpyfgpw=027-900 m g/dL & Higher Ewfj=481 mg/dL or greaterFriedwald Equation for LDL-C Laboratory - Chemistry and C hemistry - challengeOrdered By: Shayy Curtis on 11-25-2024 AST [Catalytic activity/Vol] 24 U/L <38 [facility] Screening total cholesterol/ high density lipoprotein (HDL) cholesterol ratioOrdered By: Shayy Curtis on 11-25-2024 Cholesterol.total/Cho lesterol in HDL [Mass ratio] 2.59 {ratio} [facility] Serum globulin measurementOr dered By: Shayy Curtis on 11-25-2024 Globulin (S) [Mass/Vol] 2.3 g/dL 2.2-4.2 [facility] Serum or plasma alanine franks otransferase (ALT) measurementOrdered By: Shyay Curtis on 11-25-2024 ALT [Catalytic activity/Vol] 19 U/L <47 [facility] Serum or plasma albumin alvaro urement (mass/volume)Ordered By: Shayy Curtis on 11-25-2024 Albumin [Mass/Vol] 3.6 g/dL 3.4-4.8 [facility] Serum or plasma alkaline carole sphatase measurementOrdered By: Shayy Curtis on 11-25-2024 ALP [Catalytic activity/Vol] 119 U/L 40-129 [facility] Serum or plasma cholesterol in HDL measurement (mass/volume)Ordered By: Shayy Curtis on 11-25-2024 Cholesterol in HDL [Mass/Vol] 32 mg/dL Low >40 [facility] Comment on above: National Cholesterol Education Program (NCEP) guidelines:<40 mg/dL: Low HDL-cholesterol (major risk factor for CHD)>= 60 mg/dL: High HDL-cholesterol (negative risk factor for CHD)HDL-cholesterol is affected by a number of factors, e.g. smoking, exercise, hormones, sex and age. Serum or plasma cholesterol measurement (mass/volume)Ordered By: Shayy Curtis on 11-25-2024 Cholesterol [Mass/Vol] 83 mg/dL <201 [facility] Comment on above: Cholesterol level, D esirable <200 mg/dLBorderline high cholesterol 200-239 mg/dLHigh cholesterol >=240 mg/dLRecommendations of the NCEP Adult Treatment Panel for the following risk-cutoff thresholds for the [place] population. Total proteinOrdered By: Yazan Curtis on 11-25-2024 Protein [Mass/Vol] 5.8 g/dL Low 5.9-8.4 [facility] Triglycerides measurementOrd ered By: Shayy Curtis on 11-25-2024 Triglyceride [Mass/Vol] 49 mg/dL <199 [facility] Comment on above: The drugs N-Acetylcy steine and Metamizole may falsely depress this assay. Normal range: <150 mg/dLBorderline High: 150-199 mg/dLHigh: 200-499 mg/dLVery High: >500 mg/dL Absolute lymphocyte countOrd ered By: Shayy Curtis on 11-23-2024 Lymphocytes Auto (Unsp spec) [#/Vol] 1.15 10*3/uL 0.83-4.51 [facility] Absolute neutrophil countOrd ered By: Shayy Curtis on 11-23-2024 Neutrophils (Bld) [#/Vol] 4.4 10*3/uL 2.0-7.7 [facility] Anion gap in Serum or Plasma Ordered By: Shayy Curtis on 11-23-2024 Anion gap [Moles/Vol] 10 mmol/L 5-15 [facility] Automated lymphocyte count a s percentage of total leukocytesOrdered By: Shayy Curtis on 11-23-2024 Lymphocytes/100 WBC Auto (Unsp spec) 17.5 % Low 19-41 [facility] BUN/creatinine ratioOrdered By: hollieranchos de taosirlanda Curtis on 11-23-2024 Urea nitrogen/Creatinine [Mass ratio] 23.9 mg/mg High 10-20 [facility] Basophil percentageOrdered B y: Shayy Curtis on 11-23-2024 Basophils/100 WBC (Bld) 0.9 % 0-1 [facility] Carbon dioxide, total [Moles /volume] in Central venous bloodOrdered By: Shayy Curtis on 11-23-2024 CO2 [Moles/Vol] 23.5 mmol/L 21.0-32.0 [facility] Chloride assayOrdered By: Hung Curtis on 11-23-2024 Chloride [Moles/Vol] 105 mmol/L 98-108 [facility] Eosinophil percentageOrdered By: baldomero Curtis on 11-23-2024 Eosinophils/100 WBC (Bld) 2.9 % 0-5 [facility] Erythrocyte distribution wid th ratioOrdered By: Shayy Curtis on 11-23-2024 Erythrocyte distribution width (RBC) [Ratio] 16.9 % High 11.6-14.6 [facility] Erythrocyte distribution wid th standard deviationOrdered By: baldomero Curtis on 11-23-2024 Erythrocyte distribution width (RBC) [Ratio] 50.4 fl High 35.1-43.9 [facility] Glomerular filtration rate ( GFR) estimation/1.73 sq m using serum, plasma, or whole bOrdered By: Shayy Curtis on 11-23-2024 GFR/1.73 sq M.predicted among non-blacks MDRD (S/P/Bld) [Vol rate/Area] 90 mL/min/{1.73_m2} >60 [facility] Comment on above: mL/min/1.73m2 CKD-EP I Creatinine Equation (2020) Hematocrit Auto (Bld) [Volum e fraction]Ordered By: [facility] on 11-23-2024 Hematocrit (Bld) [Volume fraction] 36.3 % Low 40-54 [facility] Hemoglobin measurementOrdere d By: baldomero Curtis on 11-23-2024 Hemoglobin (Bld) [Mass/Vol] 11.6 g/dL Low 13.0-16.5 [facility] Immature granulocytes/100 WB C Auto (Bld)Ordered By: baldomero Curtis on 11-23-2024 Immature granulocytes/100 WBC (Bld) 0.300 % 0.0-0.9 [facility] Comment on above: IG% - Immature Granu locytes (promyelocytes, myelocytes and metamyelocytes) > 1% indicates that a LEFT SHIFT is Present. International normalized rat io (INR) calculationOrdered By: Shayy Curtis on 11-23-2024 INR Coag (Bld) [Relative time] 1.5 {INR} [facility] MCV (mean corpuscular volume ) determinationOrdered By: Shayy Curtis 11-23-2024 MCV (RBC) [Entitic vol] 82.1 fL 80-94 [facility] Mean corpuscular hemoglobin (MCH) determinationOrdered By: [facility] Center[facility]landa Salazarradha 11-23-2024 MCH (RBC) [Entitic mass] 26.2 pg Low 27.0-32.0 [facility] Mean corpuscular hemoglobin concentration (MCHC) determinationOrdered By: hollieranchos de taosirlanda Curtis 11-23-2024 MCHC (RBC) [Mass/Vol] 32.0 g/dL 32-36 [facility] Mean platelet volume determi nationOrdered By: Shayy Curtis on 11-23-2024 Platelet mean volume (Bld) [Entitic vol] 10.0 fL 6.2-12.0 [facility] Monocyte percentageOrdered B y: Shayy Curtis on 11-23-2024 Monocytes/100 WBC (Bld) 11.3 % High 0-10 [facility] Neutrophil percentageOrdered By: Shayy Curtis on 11-23-2024 Neutrophils/100 WBC (Bld) 67.1 % 47-70 [facility] Nucleated red blood cell per centageOrdered By: Shayy Curtis on 11-23-2024 Nucleated RBC/100 WBC (Bld) [Ratio] 0 % 0-5 [facility] Platelet countOrdered By: Hung Curtis on 11-23-2024 Platelets (Bld) [#/Vol] 245 10*3/uL 150-450 [facility] Potassium measurement (mass/ volume)Ordered By: Shayy Curtis on 11-23-2024 Potassium (Unsp spec) [Mass/Vol] 4.0 mmol/L 3.3-5.1 [facility] Prothrombin timeOrdered By: Shayy Curtis on 11-23-2024 PT Coag (PPP) [Time] 17.9 s High 11.7-14.9 [facility] RBC Auto (Bld) [#/Vol]Ordere d By: Shayy Curtis on 11-23-2024 RBC (Bld) [#/Vol] 4.42 10*6/uL Low 4.6-6.2 [facility] Serum creatinine measurement (mass/volume)Ordered By: Shayy Curtis on 11-23-2024 Creatinine [Mass/Vol] 0.65 mg/dL Low 0.70-1.20 [facility] Serum glucose measurement (m ass/volume)Ordered By: Shayy Curtis on 11-23-2024 Glucose [Mass/Vol] 103 mg/dL High 70-99 [facility] Serum or plasma calcium alvaro urement (mass/volume)Ordered By: Shayy Oletomyradha on 11-23-2024 Calcium [Mass/Vol] 8.9 mg/dL 7.6-11.0 [facility] Serum or plasma urea nitroge n measurement (mass/volume)Ordered By: Shayy Bernalradha on 11-23-2024 Urea nitrogen [Mass/Vol] 16 mg/dL 4-19 [facility] Sodium levelOrdered By: Latrice warner Martintomyradha on 11-23-2024 Sodium [Moles/Vol] 139 mmol/L 133-145 [facility] White blood cell (WBC) count Ordered By: Hunghollietimmy Martintomyradha on 11-23-2024 WBC (Bld) [#/Vol] 6.6 10*3/uL 4.4-11.0 [facility] Absolute lymphocyte countOrd ered By: Shayy Martintomyradha on 11-02-2024 Lymphocytes Auto (Unsp spec) [#/Vol] 1.10 10*3/uL 0.83-4.51 [facility] Absolute neutrophil countOrd ered By: Shayy Curtis on 11-02-2024 Neutrophils (Bld) [#/Vol] 6.2 10*3/uL 2.0-7.7 [facility] Anion gap in Serum or Plasma Ordered By: Christineirlanda Salazartomyradha on 11-02-2024 Anion gap [Moles/Vol] 10 mmol/L 5-15 [facility] Automated lymphocyte count a s percentage of total leukocytesOrdered By: Hungbaldomero Salazartomyradha on 11-02-2024 Lymphocytes/100 WBC Auto (Unsp spec) 13.5 % Low 19-41 [facility] BUN/creatinine ratioOrdered By: Shayy Martintomyradha on 11-02-2024 Urea nitrogen/Creatinine [Mass ratio] 30.4 mg/mg High 10-20 [facility] Basophil percentageOrdered B y: Shayy Bernalradha on 11-02-2024 Basophils/100 WBC (Bld) 0.5 % 0-1 [facility] Carbon dioxide, total [Moles /volume] in Central venous bloodOrdered By: Hunghollierobsonirlanda Salazartomyradha on 11-02-2024 CO2 [Moles/Vol] 22.3 mmol/L 21.0-32.0 [facility] Chloride assayOrdered By: Hung Curtis on 11-02-2024 Chloride [Moles/Vol] 106 mmol/L 98-108 [facility] Eosinophil percentageOrdered By: Shayy Curtis 11-02-2024 Eosinophils/100 WBC (Bld) 1.4 % 0-5 [facility] Erythrocyte distribution wid th ratioOrdered By: Shayy Curtis on 11-02-2024 Erythrocyte distribution width (RBC) [Ratio] 18.0 % High 11.6-14.6 [facility] Erythrocyte distribution wid th standard deviationOrdered By: Shayy Curtis on 11-02-2024 Erythrocyte distribution width (RBC) [Ratio] 53.7 fl High 35.1-43.9 [facility] Glomerular filtration rate ( GFR) estimation/1.73 sq m using serum, plasma, or whole bOrdered By: Shayy Curtis on 11-02-2024 GFR/1.73 sq M.predicted among non-blacks MDRD (S/P/Bld) [Vol rate/Area] 91 mL/min/{1.73_m2} >60 [facility] Comment on above: mL/min/1.73m2 CKD-EP I Creatinine Equation (2020) Hematocrit Auto (Bld) [Volum e fraction]Ordered By: Shayy Curtis 11-02-2024 Hematocrit (Bld) [Volume fraction] 35.3 % Low 40-54 [facility] Hemoglobin measurementOrdere d By: Shayy Curtis on 11-02-2024 Hemoglobin (Bld) [Mass/Vol] 11.2 g/dL Low 13.0-16.5 [facility] Immature granulocytes/100 WB C Auto (Bld)Ordered By: Shayy Curtis on 11-02-2024 Immature granulocytes/100 WBC (Bld) 0.400 % 0.0-0.9 [facility] Comment on above: IG% - Immature Granu locytes (promyelocytes, myelocytes and metamyelocytes) > 1% indicates that a LEFT SHIFT is Present. MCV (mean corpuscular volume ) determinationOrdered By: Shayy Curtis on 11-02-2024 MCV (RBC) [Entitic vol] 81.5 fL 80-94 [facility] Mean corpuscular hemoglobin (MCH) determinationOrdered By: Shayy Curtis on 11-02-2024 MCH (RBC) [Entitic mass] 25.9 pg Low 27.0-32.0 [facility] Mean corpuscular hemoglobin concentration (MCHC) determinationOrdered By: Shayy Curtis on 11-02-2024 MCHC (RBC) [Mass/Vol] 31.7 g/dL Low 32-36 [facility] Mean platelet volume determi nationOrdered By: Shayy Curtis on 11-02-2024 Platelet mean volume (Bld) [Entitic vol] 10.3 fL 6.2-12.0 [facility] Monocyte percentageOrdered B y: Shayy Curtis on 11-02-2024 Monocytes/100 WBC (Bld) 7.7 % 0-10 [facility] Neutrophil percentageOrdered By: Shayy Curtis on 11-02-2024 Neutrophils/100 WBC (Bld) 76.5 % High 47-70 [facility] Nucleated red blood cell per centageOrdered By: Shayy Curtis on 11-02-2024 Nucleated RBC/100 WBC (Bld) [Ratio] 0 % 0-5 [facility] Platelet countOrdered By: Hung hollietimmy Curtis on 11-02-2024 Platelets (Bld) [#/Vol] 225 10*3/uL 150-450 [facility] Potassium measurement (mass/ volume)Ordered By: Shayy Curtis on 11-02-2024 Potassium (Unsp spec) [Mass/Vol] 3.9 mmol/L 3.3-5.1 [facility] RBC Auto (Bld) [#/Vol]Ordere d By: Shayy Curtis on 11-02-2024 RBC (Bld) [#/Vol] 4.33 10*6/uL Low 4.6-6.2 [facility] Serum creatinine measurement (mass/volume)Ordered By: Shayy Curtis on 11-02-2024 Creatinine [Mass/Vol] 0.62 mg/dL Low 0.70-1.20 [facility] Serum glucose measurement (m ass/volume)Ordered By: Shayy Curtis on 11-02-2024 Glucose [Mass/Vol] 110 mg/dL High 70-99 [facility] Serum or plasma calcium alvaro urement (mass/volume)Ordered By: Shayy Curtis on 11-02-2024 Calcium [Mass/Vol] 8.7 mg/dL 7.6-11.0 [facility] Serum or plasma urea nitroge n measurement (mass/volume)Ordered By: Shayy Curtis on 11-02-2024 Urea nitrogen [Mass/Vol] 19 mg/dL 4-19 [facility] Sodium levelOrdered By: Latrice Curtis on 11-02-2024 Sodium [Moles/Vol] 139 mmol/L 133-145 [facility] White blood cell (WBC) count Ordered By: Shayy Curtis on 11-02-2024 WBC (Bld) [#/Vol] 8.1 10*3/uL 4.4-11.0 [facility] International normalized rat io (INR) measurement by fingerstickOrdered By: Shayy Curtis on 10-31-2024 INR Coag (BldC) [Relative time] 1.8 [facility] Comment on above: Critical Value > 4.0 Whole blood prothrombin time Ordered By: Shayy Curtis on 10-31-2024 PT Coag (Bld) [Time] 20.2 s High 11.7-14.9 [facility] International normalized rat io (INR) measurement by fingerstickOrdered By: Shayy Curtis on 10-06-2024 INR Coag (BldC) [Relative time] 2.1 [facility] Comment on above: Critical Value > 4.0 Whole blood prothrombin time Ordered By: Shayy Curtis on 10-06-2024 PT Coag (Bld) [Time] 22.6 s High 11.7-14.9 [facility] Absolute lymphocyte countOrd ered By: Shayy Curtis on 10-05-2024 Lymphocytes Auto (Unsp spec) [#/Vol] 1.54 10*3/uL 0.83-4.51 [facility] Absolute neutrophil countOrd ered By: Hunghollierobsonirlanda Salazartomyradha on 10-05-2024 Neutrophils (Bld) [#/Vol] 4.2 10*3/uL 2.0-7.7 [facility] Anion gap in Serum or Plasma Ordered By: Shayy Curtis on 10-05-2024 Anion gap [Moles/Vol] 10 mmol/L 5-15 [facility] Automated lymphocyte count a s percentage of total leukocytesOrdered By: Shayy Curtis on 10-05-2024 Lymphocytes/100 WBC Auto (Unsp spec) 23.8 % 19-41 [facility] BUN/creatinine ratioOrdered By: Shayy Curtis on 10-05-2024 Urea nitrogen/Creatinine [Mass ratio] 18.2 mg/mg 10-20 [facility] Basophil percentageOrdered B y: Shayy Salazartomyradha on 10-05-2024 Basophils/100 WBC (Bld) 0.6 % 0-1 [facility] Carbon dioxide, total [Moles /volume] in Central venous bloodOrdered By: Shayy Curtis on 10-05-2024 CO2 [Moles/Vol] 24.6 mmol/L 21.0-32.0 [facility] Chloride assayOrdered By: Hung hollietimmy Curtis on 10-05-2024 Chloride [Moles/Vol] 106 mmol/L 98-108 [facility] Eosinophil percentageOrdered By: Shayy Curtis on 10-05-2024 Eosinophils/100 WBC (Bld) 1.9 % 0-5 [facility] Erythrocyte distribution wid th ratioOrdered By: Christineirlanda Martintomye on 10-05-2024 Erythrocyte distribution width (RBC) [Ratio] 18.2 % High 11.6-14.6 [facility] Erythrocyte distribution wid th standard deviationOrdered By: Shayy Salazartomyradha on 10-05-2024 Erythrocyte distribution width (RBC) [Ratio] 52.4 fl High 35.1-43.9 [facility] Glomerular filtration rate ( GFR) estimation/1.73 sq m using serum, plasma, or whole bOrdered By: Shayy Curtis on 10-05-2024 GFR/1.73 sq M.predicted among non-blacks MDRD (S/P/Bld) [Vol rate/Area] 87 mL/min/{1.73_m2} >60 [facility] Comment on above: mL/min/1.73m2 CKD-EP I Creatinine Equation (2020) Hematocrit Auto (Bld) [Volum e fraction]Ordered By: Shayy Curtis on 10-05-2024 Hematocrit (Bld) [Volume fraction] 35.0 % Low 40-54 [facility] Hemoglobin measurementOrdere d By: Shayy Curtis on 10-05-2024 Hemoglobin (Bld) [Mass/Vol] 11.0 g/dL Low 13.0-16.5 [facility] Immature granulocytes/100 WB C Auto (Bld)Ordered By: baldomero Curtis on 10-05-2024 Immature granulocytes/100 WBC (Bld) 0.300 % 0.0-0.9 [facility] Comment on above: IG% - Immature Granu locytes (promyelocytes, myelocytes and metamyelocytes) > 1% indicates that a LEFT SHIFT is Present. MCV (mean corpuscular volume ) determinationOrdered By: Shayy Curtis on 10-05-2024 MCV (RBC) [Entitic vol] 78.8 fL Low 80-94 [facility] Mean corpuscular hemoglobin (MCH) determinationOrdered By: Shayy Curtis on 10-05-2024 MCH (RBC) [Entitic mass] 24.8 pg Low 27.0-32.0 [facility] Mean corpuscular hemoglobin concentration (MCHC) determinationOrdered By: Shayy Curtis on 10-05-2024 MCHC (RBC) [Mass/Vol] 31.4 g/dL Low 32-36 [facility] Mean platelet volume determi nationOrdered By: Shayy Curtis on 10-05-2024 Platelet mean volume (Bld) [Entitic vol] 10.3 fL 6.2-12.0 [facility] Monocyte percentageOrdered B y: Shayy Curtis on 10-05-2024 Monocytes/100 WBC (Bld) 8.5 % 0-10 [facility] Neutrophil percentageOrdered By: Shayy Curtis on 10-05-2024 Neutrophils/100 WBC (Bld) 64.9 % 47-70 [facility] Nucleated red blood cell per centageOrdered By: Shayy Martinsergio on 10-05-2024 Nucleated RBC/100 WBC (Bld) [Ratio] 0 % 0-5 [facility] Platelet countOrdered By: Hung baldomero Martintomyradha on 10-05-2024 Platelets (Bld) [#/Vol] 235 10*3/uL 150-450 [facility] Potassium measurement (mass/ volume)Ordered By: Hunghollietimmy Martinsergio on 10-05-2024 Potassium (Unsp spec) [Mass/Vol] 4.1 mmol/L 3.3-5.1 [facility] RBC Auto (Bld) [#/Vol]Ordere d By: Shayy Martinsergio on 10-05-2024 RBC (Bld) [#/Vol] 4.44 10*6/uL Low 4.6-6.2 [facility] Serum creatinine measurement (mass/volume)Ordered By: Hunghollietimmy Martinsergio on 10-05-2024 Creatinine [Mass/Vol] 0.73 mg/dL 0.70-1.20 [facility] Serum glucose measurement (m ass/volume)Ordered By: Hunghollierobsonirlanda Salazartomyradha on 10-05-2024 Glucose [Mass/Vol] 90 mg/dL 70-99 [facility] Serum or plasma calcium alvaro urement (mass/volume)Ordered By: Hunghollietimmy Martintomyradha on 10-05-2024 Calcium [Mass/Vol] 8.7 mg/dL 7.6-11.0 [facility] Serum or plasma urea nitroge n measurement (mass/volume)Ordered By: Hunghollierobsonirlanda Salazartomyradha on 10-05-2024 Urea nitrogen [Mass/Vol] 13 mg/dL 4-19 [facility] Sodium levelOrdered By: Hunghollie timmy Martintomyradha on 10-05-2024 Sodium [Moles/Vol] 140 mmol/L 133-145 [facility] White blood cell (WBC) count Ordered By: Shayy Curtis on 10-05-2024 WBC (Bld) [#/Vol] 6.5 10*3/uL 4.4-11.0 [facility] International normalized rat io (INR) calculationOrdered By: Shayy Curtis on 09-29-2024 INR Coag (Bld) [Relative time] 3.3 {INR} [facility] Prothrombin timeOrdered By: Shayy Curtis on 09-29-2024 PT Coag (PPP) [Time] 34.4 s High 11.7-14.9 [facility] Absolute lymphocyte countOrd ered By: Shayy Curtis on 09-28-2024 Lymphocytes Auto (Unsp spec) [#/Vol] 1.41 10*3/uL 0.83-4.51 [facility] Absolute neutrophil countOrd ered By: Shayy Curtis on 09-28-2024 Neutrophils (Bld) [#/Vol] 4.8 10*3/uL 2.0-7.7 [facility] Anion gap in Serum or Plasma Ordered By: Shayy Curtis on 09-28-2024 Anion gap [Moles/Vol] 13 mmol/L 5-15 [facility] Automated lymphocyte count a s percentage of total leukocytesOrdered By: Shayy Curtis on 09-28-2024 Lymphocytes/100 WBC Auto (Unsp spec) 20.1 % 19-41 [facility] BUN/creatinine ratioOrdered By: Shayy Curtis on 09-28-2024 Urea nitrogen/Creatinine [Mass ratio] 19.9 mg/mg 10-20 [facility] Basophil percentageOrdered B y: Shayy Curtis on 09-28-2024 Basophils/100 WBC (Bld) 0.6 % 0-1 [facility] Carbon dioxide, total [Moles /volume] in Central venous bloodOrdered By: Shayy Curtis on 09-28-2024 CO2 [Moles/Vol] 21.1 mmol/L 21.0-32.0 [facility] Chloride assayOrdered By: Hung Curtis on 09-28-2024 Chloride [Moles/Vol] 105 mmol/L 98-108 [facility] Eosinophil percentageOrdered By: baldomero Curtis on 09-28-2024 Eosinophils/100 WBC (Bld) 2.0 % 0-5 [facility] Erythrocyte distribution wid th ratioOrdered By: baldomero Curtis on 09-28-2024 Erythrocyte distribution width (RBC) [Ratio] 18.3 % High 11.6-14.6 [facility] Erythrocyte distribution wid th standard deviationOrdered By: hollieranchos de taosirlanda Curtis on 09-28-2024 Erythrocyte distribution width (RBC) [Ratio] 52.8 fl High 35.1-43.9 [facility] Glomerular filtration rate ( GFR) estimation/1.73 sq m using serum, plasma, or whole bOrdered By: [facility] on 09-28-2024 GFR/1.73 sq M.predicted among non-blacks MDRD (S/P/Bld) [Vol rate/Area] 88 mL/min/{1.73_m2} >60 [facility] Comment on above: mL/min/1.73m2 CKD-EP I Creatinine Equation (2020) Hematocrit Auto (Bld) [Volum e fraction]Ordered By: Shayy Curtis on 09-28-2024 Hematocrit (Bld) [Volume fraction] 37.0 % Low 40-54 [facility] Hemoglobin measurementOrdere d By: Shayy Curtis on 09-28-2024 Hemoglobin (Bld) [Mass/Vol] 11.5 g/dL Low 13.0-16.5 [facility] Immature granulocytes/100 WB C Auto (Bld)Ordered By: Shayy Curtis on 09-28-2024 Immature granulocytes/100 WBC (Bld) 0.300 % 0.0-0.9 [facility] Comment on above: IG% - Immature Granu locytes (promyelocytes, myelocytes and metamyelocytes) > 1% indicates that a LEFT SHIFT is Present. MCV (mean corpuscular volume ) determinationOrdered By: Shayy Curtis on 09-28-2024 MCV (RBC) [Entitic vol] 80.3 fL 80-94 [facility] Mean corpuscular hemoglobin (MCH) determinationOrdered By: Shayy Curtis on 09-28-2024 MCH (RBC) [Entitic mass] 24.9 pg Low 27.0-32.0 [facility] Mean corpuscular hemoglobin concentration (MCHC) determinationOrdered By: Shayy Curtis on 09-28-2024 MCHC (RBC) [Mass/Vol] 31.1 g/dL Low 32-36 [facility] Mean platelet volume determi nationOrdered By: Shayy Curtis on 09-28-2024 Platelet mean volume (Bld) [Entitic vol] 10.5 fL 6.2-12.0 [facility] Monocyte percentageOrdered B y: Shayy Curtis on 09-28-2024 Monocytes/100 WBC (Bld) 8.8 % 0-10 [facility] Neutrophil percentageOrdered By: Shayy Curtis on 09-28-2024 Neutrophils/100 WBC (Bld) 68.2 % 47-70 [facility] Nucleated red blood cell per centageOrdered By: Shayy Curtis on 09-28-2024 Nucleated RBC/100 WBC (Bld) [Ratio] 0 % 0-5 [facility] Platelet countOrdered By: Hung Curtis on 09-28-2024 Platelets (Bld) [#/Vol] 280 10*3/uL 150-450 [facility] Potassium measurement (mass/ volume)Ordered By: Shayy Curtis on 09-28-2024 Potassium (Unsp spec) [Mass/Vol] 4.0 mmol/L 3.3-5.1 [facility] RBC Auto (Bld) [#/Vol]Ordere d By: Shayy Curtis on 09-28-2024 RBC (Bld) [#/Vol] 4.61 10*6/uL 4.6-6.2 [facility] Serum creatinine measurement (mass/volume)Ordered By: Shayy Curtis on 09-28-2024 Creatinine [Mass/Vol] 0.71 mg/dL 0.70-1.20 [facility] Serum glucose measurement (m ass/volume)Ordered By: Shayy Curtis on 09-28-2024 Glucose [Mass/Vol] 91 mg/dL 70-99 [facility] Serum or plasma calcium alvaro urement (mass/volume)Ordered By: Shayy Curtis on 09-28-2024 Calcium [Mass/Vol] 8.9 mg/dL 7.6-11.0 [facility] Serum or plasma urea nitroge n measurement (mass/volume)Ordered By: Shayy Curtis on 09-28-2024 Urea nitrogen [Mass/Vol] 14 mg/dL 4-19 [facility] Sodium levelOrdered By: Latrice timmy Ever on 09-28-2024 Sodium [Moles/Vol] 140 mmol/L 133-145 [facility] White blood cell (WBC) count Ordered By: Shayy Curtis on 09-28-2024 WBC (Bld) [#/Vol] 7.0 10*3/uL 4.4-11.0 [facility] International normalized rat io (INR) measurement by fingerstickOrdered By: Shayy Curtis on 09-26-2024 INR Coag (BldC) [Relative time] 2.5 [facility] Comment on above: Critical Value > 4.0 Whole blood prothrombin time Ordered By: Shayy Curtis on 09-26-2024 PT Coag (Bld) [Time] 27.1 s High 11.7-14.9 [facility] International normalized rat io (INR) calculationOrdered By: Shayy Curtis on 09-23-2024 INR Coag (Bld) [Relative time] 2.0 {INR} [facility] Prothrombin timeOrdered By: Shayy Curtis on 09-23-2024 PT Coag (PPP) [Time] 23.5 s High 11.7-14.9 [facility] Absolute lymphocyte countOrd ered By: Shayy Curtis on 09-21-2024 Lymphocytes Auto (Unsp spec) [#/Vol] 1.35 10*3/uL 0.83-4.51 [facility] Absolute neutrophil countOrd ered By: Shayy Curtis on 07-02-2025 Neutrophils (Bld) [#/Vol] 4.3 10*3/uL 2.0-7.7 [facility] Anion gap in Serum or Plasma Ordered By: Christineirlanda Salazartomyradha on 09-21-2024 Anion gap [Moles/Vol] 12 mmol/L 5-15 [facility] Automated lymphocyte count a s percentage of total leukocytesOrdered By: hollieranchos de taosirlanda Curtis on 09-21-2024 Lymphocytes/100 WBC Auto (Unsp spec) 21.5 % 19-41 [facility] BUN/creatinine ratioOrdered By: hollieranchos de taosirlanda Curtis on 09-21-2024 Urea nitrogen/Creatinine [Mass ratio] 15.8 mg/mg 10-20 [facility] Basophil percentageOrdered B y: Shayy Curtis on 09-21-2024 Basophils/100 WBC (Bld) 0.8 % 0-1 [facility] CNPNon 09-21-2024 CNPN Telephone ([facility]) ROBY FLORES ([id number]) 1935 M Date Time Provider Department 09/21/24 STAS MORA [facility] During your visit today, we recorded the following information about you: Petty Vargas 09/21/2024 9:23 AM Signed [facility]. 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 Encounter Status:Closed by MARTA PALACIO on 09/22/24 [facility] Carbon dioxide, total [Moles /volume] in Central venous bloodOrdered By: Shayy Curtis on 09-21-2024 CO2 [Moles/Vol] 23.2 mmol/L 21.0-32.0 [facility] Chloride assayOrdered By: Hung Curtis on 09-21-2024 Chloride [Moles/Vol] 104 mmol/L 98-108 [facility] Eosinophil percentageOrdered By: Shayy Curtis on 09-21-2024 Eosinophils/100 WBC (Bld) 1.3 % 0-5 [facility] Erythrocyte distribution wid th ratioOrdered By: Shayy Curtis on 09-21-2024 Erythrocyte distribution width (RBC) [Ratio] 18.0 % High 11.6-14.6 [facility] Erythrocyte distribution wid th standard deviationOrdered By: Shayy Curtis on 09-21-2024 Erythrocyte distribution width (RBC) [Ratio] 50.8 fl High 35.1-43.9 [facility] Glomerular filtration rate ( GFR) estimation/1.73 sq m using serum, plasma, or whole bOrdered By: Shayy Curtis on 09-21-2024 GFR/1.73 sq M.predicted among non-blacks MDRD (S/P/Bld) [Vol rate/Area] 88 mL/min/{1.73_m2} >60 [facility] Comment on above: mL/min/1.73m2 CKD-EP I Creatinine Equation (2020) Hematocrit Auto (Bld) [Volum e fraction]Ordered By: hollieranchos de taosirlanda Curtis on 09-21-2024 Hematocrit (Bld) [Volume fraction] 37.5 % Low 40-54 [facility] Hemoglobin measurementOrdere d By: Shayy Curtis on 09-21-2024 Hemoglobin (Bld) [Mass/Vol] 11.6 g/dL Low 13.0-16.5 [facility] Immature granulocytes/100 WB C Auto (Bld)Ordered By: Shayy Curtis on 09-21-2024 Immature granulocytes/100 WBC (Bld) 0.300 % 0.0-0.9 [facility] Comment on above: IG% - Immature Granu locytes (promyelocytes, myelocytes and metamyelocytes) > 1% indicates that a LEFT SHIFT is Present. International normalized rat io (INR) calculationOrdered By: Shayy Curtis on 09-21-2024 INR Coag (Bld) [Relative time] 1.7 {INR} [facility] MCV (mean corpuscular volume ) determinationOrdered By: Shayy Curtis on 09-21-2024 MCV (RBC) [Entitic vol] 78.9 fL Low 80-94 [facility] Mean corpuscular hemoglobin (MCH) determinationOrdered By: baldomero Curtis on 09-21-2024 MCH (RBC) [Entitic mass] 24.4 pg Low 27.0-32.0 [facility] Mean corpuscular hemoglobin concentration (MCHC) determinationOrdered By: baldomero Curtis on 09-21-2024 MCHC (RBC) [Mass/Vol] 30.9 g/dL Low 32-36 [facility] Mean platelet volume determi nationOrdered By: Shayy Curtis on 09-21-2024 Platelet mean volume (Bld) [Entitic vol] 10.1 fL 6.2-12.0 [facility] Monocyte percentageOrdered B y: Shayy Curtis on 09-21-2024 Monocytes/100 WBC (Bld) 8.1 % 0-10 [facility] Neutrophil percentageOrdered By: Shayy Curtis on 09-21-2024 Neutrophils/100 WBC (Bld) 68.0 % 47-70 [facility] Nucleated red blood cell per centageOrdered By: Shayy Curtis on 09-21-2024 Nucleated RBC/100 WBC (Bld) [Ratio] 0 % 0-5 [facility] Platelet countOrdered By: Hung Curtis on 09-21-2024 Platelets (Bld) [#/Vol] 318 10*3/uL 150-450 [facility] Potassium measurement (mass/ volume)Ordered By: Shayy Curtis on 09-21-2024 Potassium (Unsp spec) [Mass/Vol] 4.0 mmol/L 3.3-5.1 [facility] Prothrombin timeOrdered By: Shayy Curtis on 09-21-2024 PT Coag (PPP) [Time] 20.6 s High 11.7-14.9 [facility] RBC Auto (Bld) [#/Vol]Ordere d By: Shayy Curtis on 09-21-2024 RBC (Bld) [#/Vol] 4.75 10*6/uL 4.6-6.2 [facility] Serum creatinine measurement (mass/volume)Ordered By: Shayy Curtis on 09-21-2024 Creatinine [Mass/Vol] 0.70 mg/dL 0.70-1.20 [facility] Serum glucose measurement (m ass/volume)Ordered By: Shayy Curtis on 09-21-2024 Glucose [Mass/Vol] 101 mg/dL High 70-99 [facility] Serum or plasma calcium alvaro urement (mass/volume)Ordered By: Shayy Curtis on 09-21-2024 Calcium [Mass/Vol] 9.2 mg/dL 7.6-11.0 [facility] Serum or plasma urea nitroge n measurement (mass/volume)Ordered By: Shayy Curtis on 09-21-2024 Urea nitrogen [Mass/Vol] 11 mg/dL 4-19 [facility] Sodium levelOrdered By: Latrice simonmaira Ever on 09-21-2024 Sodium [Moles/Vol] 139 mmol/L 133-145 [facility] White blood cell (WBC) count Ordered By: Shayy Curtis on 09-21-2024 WBC (Bld) [#/Vol] 6.3 10*3/uL 4.4-11.0 [facility] International normalized rat io (INR) measurement by fingerstickOrdered By: Shayy Curtis on 09-19-2024 INR Coag (BldC) [Relative time] 1.9 [facility] Comment on above: Critical Value > 4.0 Whole blood prothrombin time Ordered By: Shayy Curtis on 09-19-2024 PT Coag (Bld) [Time] 21.5 s High 11.7-14.9 [facility] International normalized rat io (INR) calculationOrdered By: Shayy Curtis on 09-15-2024 INR Coag (Bld) [Relative time] 2.1 {INR} [facility] Prothrombin timeOrdered By: Shayy Curtis on 09-15-2024 PT Coag (PPP) [Time] 24.2 s High 11.7-14.9 [facility] Absolute lymphocyte countOrd ered By: Shayy Curtis on 09-14-2024 Lymphocytes Auto (Unsp spec) [#/Vol] 1.57 10*3/uL 0.83-4.51 [facility] Absolute neutrophil countOrd ered By: Shayy Curtis on 09-14-2024 Neutrophils (Bld) [#/Vol] 5.1 10*3/uL 2.0-7.7 [facility] Anion gap in Serum or Plasma Ordered By: Shayy Curtis on 09-14-2024 Anion gap [Moles/Vol] 12 mmol/L 5-15 [facility] Automated lymphocyte count a s percentage of total leukocytesOrdered By: Shayy Curtis on 09-14-2024 Lymphocytes/100 WBC Auto (Unsp spec) 20.8 % 19-41 [facility] BUN/creatinine ratioOrdered By: Shayy Curtis on 09-14-2024 Urea nitrogen/Creatinine [Mass ratio] 21.8 mg/mg High 10-20 [facility] Basophil percentageOrdered B y: Shayy Curtis on 09-14-2024 Basophils/100 WBC (Bld) 1.1 % High 0-1 [facility] Carbon dioxide, total [Moles /volume] in Central venous bloodOrdered By: Shayy Curtis on 09-14-2024 CO2 [Moles/Vol] 21.8 mmol/L 21.0-32.0 [facility] Chloride assayOrdered By: Hung Curtis on 09-14-2024 Chloride [Moles/Vol] 107 mmol/L 98-108 [facility] Eosinophil percentageOrdered By: Shayy Curtis on 09-14-2024 Eosinophils/100 WBC (Bld) 1.7 % 0-5 [facility] Erythrocyte distribution wid th ratioOrdered By: Shayy Curtis on 09-14-2024 Erythrocyte distribution width (RBC) [Ratio] 17.7 % High 11.6-14.6 [facility] Erythrocyte distribution wid th standard deviationOrdered By: Shayy Curtis on 09-14-2024 Erythrocyte distribution width (RBC) [Ratio] 51.1 fl High 35.1-43.9 [facility] Glomerular filtration rate ( GFR) estimation/1.73 sq m using serum, plasma, or whole bOrdered By: Shayy Curtis on 09-14-2024 GFR/1.73 sq M.predicted among non-blacks MDRD (S/P/Bld) [Vol rate/Area] 87 mL/min/{1.73_m2} >60 [facility] Comment on above: mL/min/1.73m2 CKD-EP I Creatinine Equation (2020) Hematocrit Auto (Bld) [Volum e fraction]Ordered By: Shayy Curtis on 09-14-2024 Hematocrit (Bld) [Volume fraction] 34.7 % Low 40-54 [facility] Hemoglobin measurementOrdere d By: Shayy Curtis on 09-14-2024 Hemoglobin (Bld) [Mass/Vol] 10.7 g/dL Low 13.0-16.5 [facility] Immature granulocytes/100 WB C Auto (Bld)Ordered By: Shayy Curtis on 09-14-2024 Immature granulocytes/100 WBC (Bld) 0.400 % 0.0-0.9 [facility] Comment on above: IG% - Immature Granu locytes (promyelocytes, myelocytes and metamyelocytes) > 1% indicates that a LEFT SHIFT is Present. MCV (mean corpuscular volume ) determinationOrdered By: Shayy Curtis on 09-14-2024 MCV (RBC) [Entitic vol] 78.9 fL Low 80-94 [facility] Mean corpuscular hemoglobin (MCH) determinationOrdered By: [facility] on 09-14-2024 MCH (RBC) [Entitic mass] 24.3 pg Low 27.0-32.0 [facility] Mean corpuscular hemoglobin concentration (MCHC) determinationOrdered By: Shayy Curtis on 09-14-2024 MCHC (RBC) [Mass/Vol] 30.8 g/dL Low 32-36 [facility] Mean platelet volume determi nationOrdered By: Shayy Curtis on 09-14-2024 Platelet mean volume (Bld) [Entitic vol] 10.6 fL 6.2-12.0 [facility] Monocyte percentageOrdered B y: Shayy Curtis on 09-14-2024 Monocytes/100 WBC (Bld) 8.5 % 0-10 [facility] Neutrophil percentageOrdered By: hollieranchos de taosirlanda Curtis on 09-14-2024 Neutrophils/100 WBC (Bld) 67.5 % 47-70 [facility] Nucleated red blood cell per centageOrdered By: baldomero Curtis on 09-14-2024 Nucleated RBC/100 WBC (Bld) [Ratio] 0 % 0-5 [facility] Platelet countOrdered By: Hung hollietimmy Curtis on 09-14-2024 Platelets (Bld) [#/Vol] 291 10*3/uL 150-450 [facility] Potassium measurement (mass/ volume)Ordered By: Shayy Curtis on 09-14-2024 Potassium (Unsp spec) [Mass/Vol] 4.0 mmol/L 3.3-5.1 [facility] RBC Auto (Bld) [#/Vol]Ordere d By: Shayy Curtis on 09-14-2024 RBC (Bld) [#/Vol] 4.40 10*6/uL Low 4.6-6.2 [facility] Serum creatinine measurement (mass/volume)Ordered By: Shayy Curtis on 09-14-2024 Creatinine [Mass/Vol] 0.74 mg/dL 0.70-1.20 [facility] Serum glucose measurement (m ass/volume)Ordered By: Shayy Curtis on 09-14-2024 Glucose [Mass/Vol] 99 mg/dL 70-99 [facility] Serum or plasma calcium alvaro urement (mass/volume)Ordered By: Shayy Curtis on 09-14-2024 Calcium [Mass/Vol] 8.6 mg/dL 7.6-11.0 [facility] Serum or plasma urea nitroge n measurement (mass/volume)Ordered By: Shayy Curtis on 09-14-2024 Urea nitrogen [Mass/Vol] 16 mg/dL 4-19 [facility] Sodium levelOrdered By: Latrice timmy Ever on 09-14-2024 Sodium [Moles/Vol] 141 mmol/L 133-145 [facility] White blood cell (WBC) count Ordered By: Shayy Curtis on 09-14-2024 WBC (Bld) [#/Vol] 7.5 10*3/uL 4.4-11.0 [facility] International normalized rat io (INR) measurement by fingerstickOrdered By: Shayy Curtis on 09-12-2024 INR Coag (BldC) [Relative time] 3.2 [facility] Comment on above: Critical Value > 4.0 Whole blood prothrombin time Ordered By: Shayy Curtis on 09-12-2024 PT Coag (Bld) [Time] 33.0 s High 11.7-14.9 [facility] International normalized rat io (INR) measurement by fingerstickOrdered By: Shayy Curtis on 09-08-2024 INR Coag (BldC) [Relative time] 2.2 [facility] Comment on above: Critical Value > 4.0 Prothrombin Time w/INRon INR Normal [facility] Comment on above: Result Comment: Canc elled via OM: Order cancelled - Patient discharged Performed By: #### L 300.3900 #### [facility] Laboratory [address] [place], [place], [id number] PROTIME Normal 11.7-14.9 [facility] Comment on above: Result Comment: Canc elled via OM: Order cancelled - Patient discharged Performed By: #### L 300.3900 #### [facility] [address] [place], [place], [id number] Whole blood prothrombin time Ordered By: Shayy Curtis on 09-08-2024 PT Coag (Bld) [Time] 23.8 s High 11.7-14.9 [facility] Anion gap in Serum or Plasma Ordered By: Shayy Curtis on 09-07-2024 Anion gap [Moles/Vol] 10 mmol/L 5-15 [facility] BUN/creatinine ratioOrdered By: Shayy Curtis on 09-07-2024 Urea nitrogen/Creatinine [Mass ratio] 14.0 mg/mg 10-20 [facility] Bilirubin, totalOrdered By: Shayy Curtis on 09-07-2024 Bilirubin [Mass/Vol] 1.02 mg/dL 0.00-1.30 [facility] Calculated very low density lipoprotein (VLDL) cholesterol measurementOrdered By: Shayy Curtis on 09-07-2024 Calculated very low density lipoprotein (VLDL) cholesterol measurement 13 mg/dL 5-40 [facility] Carbon dioxide, total [Moles /volume] in Central venous bloodOrdered By: Shayy Curtis on 09-07-2024 CO2 [Moles/Vol] 25.4 mmol/L 21.0-32.0 [facility] Chloride assayOrdered By: Hung Curtis on 09-07-2024 Chloride [Moles/Vol] 104 mmol/L 98-108 [facility] Culture, Blood (WB)on 2024 CUB No growth in 5 days. Normal [facility] Comment on above: Performed By: #### M 200.1000, L509.7001, L101.9900, L501.6710 #### [facility] [address] [place], [address] Glomerular filtration rate ( GFR) estimation/1.73 sq m using serum, plasma, or whole bOrdered By: Shayy Curtis on 09-07-2024 GFR/1.73 sq M.predicted among non-blacks MDRD (S/P/Bld) [Vol rate/Area] 88 mL/min/{1.73_m2} >60 [facility] Comment on above: mL/min/1.73m2 CKD-EP I Creatinine Equation (2020) LDL calc ser/plasOrdered By: Shayy Curtis on 09-07-2024 Cholesterol in LDL [Mass/Vol] 64 mg/dL [facility] Comment on above: Xwyrnsgywf=862-026 m g/dL & Higher Wtmn=587 mg/dL or greater Laboratory - Chemistry and C hemistry - challengeOrdered By: Shayy Curtis on 09-07-2024 AST [Catalytic activity/Vol] 33 U/L <38 [facility] Potassium measurement (mass/ volume)Ordered By: Sahyy Curtis on 09-07-2024 Potassium (Unsp spec) [Mass/Vol] 3.8 mmol/L 3.3-5.1 [facility] Prothrombin Time w/INRon INR Normal [facility] Comment on above: Result Comment: Canc elled via OM: Order cancelled - Patient discharged Performed By: #### L 300.3900 #### [facility] Laboratory [address] [place], [place], [id number] PROTIME Normal 11.7-14.9 [facility] Comment on above: Result Comment: Canc elled via OM: Order cancelled - Patient discharged Performed By: #### L 300.3900 #### [facility] [address] [place], [place], [id number] Screening total cholesterol/ high density lipoprotein (HDL) cholesterol ratioOrdered By: Shayy Curtis on 09-07-2024 Cholesterol.total/Cho lesterol in HDL [Mass ratio] 3.75 {ratio} [facility] Serum creatinine measurement (mass/volume)Ordered By: Shayy Curtis on 09-07-2024 Creatinine [Mass/Vol] 0.70 mg/dL 0.70-1.20 [facility] Serum globulin measurementOr dered By: Shayy Curtis on 09-07-2024 Globulin (S) [Mass/Vol] 2.5 g/dL 2.2-4.2 [facility] Serum glucose measurement (m ass/volume)Ordered By: Shayy Curtis on 09-07-2024 Glucose [Mass/Vol] 107 mg/dL High 70-99 [facility] Serum or plasma alanine franks otransferase (ALT) measurementOrdered By: Shayy Curtis on 09-07-2024 ALT [Catalytic activity/Vol] 23 U/L <47 [facility] Serum or plasma albumin alvaro urement (mass/volume)Ordered By: Shayy Curtis on 09-07-2024 Albumin [Mass/Vol] 3.7 g/dL 3.4-4.8 [facility] Serum or plasma albumin/glob ulin mass ratioOrdered By: Shayy Curtis on 09-07-2024 Albumin/Globulin [Mass ratio] 1.5 {ratio} 0.9-2.4 [facility] Serum or plasma alkaline carole sphatase measurementOrdered By: Shayy Curtis on 09-07-2024 ALP [Catalytic activity/Vol] 123 U/L 40-129 [facility] Serum or plasma calcium alvaro urement (mass/volume)Ordered By: Shayy Curtis on 09-07-2024 Calcium [Mass/Vol] 8.7 mg/dL 7.6-11.0 [facility] Serum or plasma cholesterol in HDL measurement (mass/volume)Ordered By: Shayy Curtis on 09-07-2024 Cholesterol in HDL [Mass/Vol] 28 mg/dL Low >40 [facility] Comment on above: National Cholesterol Education Program (NCEP) guidelines:<40 mg/dL: Low HDL-cholesterol (major risk factor for CHD)>= 60 mg/dL: High HDL-cholesterol (negative risk factor for CHD)HDL-cholesterol is affected by a number of factors, e.g. smoking, exercise, hormones, sex and age. Serum or plasma cholesterol measurement (mass/volume)Ordered By: Shayy Curtis on 09-07-2024 Cholesterol [Mass/Vol] 105 mg/dL <201 [facility] Comment on above: Cholesterol level, D esirable <200 mg/dLBorderline high cholesterol 200-239 mg/dLHigh cholesterol >=240 mg/dLRecommendations of the NCEP Adult Treatment Panel for the following risk-cutoff thresholds for the [place] population. Serum or plasma urea nitroge n measurement (mass/volume)Ordered By: Shayy Curtis on 09-07-2024 Urea nitrogen [Mass/Vol] 10 mg/dL 4-19 [facility] Sodium levelOrdered By: Latrice Curtis on 09-07-2024 Sodium [Moles/Vol] 139 mmol/L 133-145 [facility] TSH DL <= 0.005 mIU/L QnOrde red By: Shayy Curtis on 09-07-2024 TSH Qn 0.300 uIU/mL 0.300-4.20 0 [facility] Total proteinOrdered By: Yazan Curtis on 09-07-2024 Protein [Mass/Vol] 6.2 g/dL 5.9-8.4 [facility] Triglycerides measurementOrd ered By: Shayy Curtis on 09-07-2024 Triglyceride [Mass/Vol] 63 mg/dL <199 [facility] Comment on above: The drugs N-Acetylcy steine and Metamizole may falsely depress this assay. Normal range: <150 mg/dLBorderline High: 150-199 mg/dLHigh: 200-499 mg/dLVery High: >500 mg/dL Vitamin B12 ser/plasOrdered By: Shayy Curtis on 09-07-2024 Cobalamin (Vitamin B12) [Mass/Vol] 519 pg/mL 180-914 [facility] Absolute lymphocyte countOrd ered By: Navid Dominguez on 09-06-2024 Lymphocytes Auto (Unsp spec) [#/Vol] 1.28 10*3/uL 0.83-4.51 [facility] Absolute neutrophil countOrd ered By: Navid Dominguez on 09-06-2024 Neutrophils (Bld) [#/Vol] 5.2 10*3/uL 2.0-7.7 [facility] Anion gap in Serum or Plasma Ordered By: Navid Dominguez on 09-06-2024 Anion gap [Moles/Vol] 10 mmol/L 5-15 [facility] Automated blood erythrocyte countOrdered By: Navid Dominguez on 09-06-2024 RBC (Bld) [#/Vol] 4.39 10*6/uL Low 4.6-6.2 [facility] Comment on above: Performed By: #### L 100.0100, L500.2500, L300.3900 #### [facility] [address] [place], [address] Automated blood hematocrit ( percentage)Ordered By: Navid Dominguez on 09-06-2024 Hematocrit (Bld) [Volume fraction] 33.6 % Low 40-54 [facility] Comment on above: Performed By: #### L 100.0100, L500.2500, L300.3900 #### [facility] [address] [place], [address] Automated lymphocyte count a s percentage of total leukocytesOrdered By: Navid Dominguez on 09-06-2024 Lymphocytes/100 WBC Auto (Unsp spec) 16.4 % Low 19-41 [facility] BUN/creatinine ratioOrdered By: Navid Dominguez on 09-06-2024 Urea nitrogen/Creatinine [Mass ratio] 14.4 mg/mg 10-20 [facility] Basic Metabolic Profile (BMP )on 09-06-2024 BUN/CRE 14.4 RATIO Normal 10-20 [facility] Comment on above: Performed By: #### M 200.1000, L509.7001, L101.9900, L501.6710 #### [facility] [address] [place], [address] ECRCL 64.10 ml/min Normal 50-250 [facility] Comment on above: Performed By: #### M 200.1000, L509.7001, L101.9900, L501.6710 #### [facility] [address] [place], [address] GAP 10 Normal 5-15 [facility] Comment on above: Performed By: #### M 200.1000, L509.7001, L101.9900, L501.6710 #### [facility] [address] [place], [address] Potassium [Moles/Vol] 3.5 mmol/L Normal 3.3-5.1 [facility] Comment on above: Performed By: #### M 200.1000, L509.7001, L101.9900, L501.6710 #### [facility] [address] [place], [address] Basophil percentageOrdered B y: Navid Dominguez on 09-06-2024 Basophils/100 WBC (Bld) 1.0 % Normal 0-1 [facility] Comment on above: Performed By: #### L 100.0100, L500.2500, L300.3900 #### [facility] [address] [place], [address] CBC W/Diff, Automatedon 06-1 7-2025 Absolute Lymph 1.28 X10 3/uL Normal 0.83-4.51 [facility] Comment on above: Performed By: #### L 100.0100, L500.2500, L300.3900 #### [facility] [address] [place], [address] Absolute Neut 5.2 X10 3/uL Normal 2.0-7.7 [facility] Comment on above: Performed By: #### L 100.0100, L500.2500, L300.3900 #### [facility] [address] [place], [address] IG% 0.400 Normal 0.0-0.9 [facility] Comment on above: Result Comment: IG% - Immature Granulocytes (promyelocytes, myelocytes and metamyelocytes) > 1% indicates that a LEFT SHIFT is Present. Performed By: #### L 100.0100, L500.2500, L300.3900 #### [facility] [address] [place], [address] Lymphocytes/100 WBC (Bld) 16.4 % Low 19-41 [facility] Comment on above: Performed By: #### L 100.0100, L500.2500, L300.3900 #### [facility] [address] [place], [address] Nucleated RBC (Bld) [#/Vol] 0 10*3/uL Normal 0-5 [facility] Comment on above: Performed By: #### L 100.0100, L500.2500, L300.3900 #### [facility] [address] [place], [address] RDW SD 48.2 fl High 35.1-43.9 [facility] Comment on above: Performed By: #### L 100.0100, L500.2500, L300.3900 #### [facility] [address] [place], [address] Carbon dioxide, total [Moles /volume] in Central venous bloodOrdered By: Navid Dominguez on 09-06-2024 CO2 [Moles/Vol] 24.9 mmol/L Normal 21.0-32.0 [facility] Comment on above: Performed By: #### M 200.1000, L509.7001, L101.9900, L501.6710 #### [facility] [address] [place], [address] Chloride assayOrdered By: Cameron Dominguez on 09-06-2024 Chloride [Moles/Vol] 106 mmol/L Normal 98-108 [facility] Comment on above: Performed By: #### M 200.1000, L509.7001, L101.9900, L501.6710 #### [facility] [address] [place], [address] Eosinophil percentageOrdered By: Navid Dominguez on 09-06-2024 Eosinophils/100 WBC (Bld) 6.3 % High 0-5 [facility] Comment on above: Performed By: #### L 100.0100, L500.2500, L300.3900 #### [facility] [address] [place], [address] Erythrocyte distribution wid th ratioOrdered By: Navid Dominguez on 09-06-2024 Erythrocyte distribution width (RBC) [Ratio] 17.4 % High 11.6-14.6 [facility] Comment on above: Performed By: #### L 100.0100, L500.2500, L300.3900 #### [facility] [address] [place], [address] Erythrocyte distribution wid th standard deviationOrdered By: Navid Dominguez on 09-06-2024 Erythrocyte distribution width (RBC) [Ratio] 48.2 fl High 35.1-43.9 [facility] Glomerular filtration rate ( GFR) estimation/1.73 sq m using serum, plasma, or whole bOrdered By: Navid Dominguez on 09-06-2024 GFR/1.73 sq M.predicted among non-blacks MDRD (S/P/Bld) [Vol rate/Area] 87 mL/min/{1.73_m2} Normal >60 [facility] Comment on above: mL/min/1.73m2 CKD-EP I Creatinine Equation (2020) Result Comment: mL/m in/1.73m2 CKD-EPI Creatinine Equation (2020) Performed By: #### M 200.1000, L509.7001, L101.9900, L501.6710 #### [facility] [address] [place], [address] Hemoglobin measurementOrdere d By: Navid Dominguez on 09-06-2024 Hemoglobin (Bld) [Mass/Vol] 10.8 g/dL Low 13.0-16.5 [facility] Comment on above: Performed By: #### L 100.0100, L500.2500, L300.3900 #### [facility] [address] [place], [address] Immature granulocytes/100 WB C Auto (Bld)Ordered By: Navid Dominguez on 09-06-2024 Immature granulocytes/100 WBC (Bld) 0.400 % 0.0-0.9 [facility] Comment on above: IG% - Immature Granu locytes (promyelocytes, myelocytes and metamyelocytes) > 1% indicates that a LEFT SHIFT is Present. International normalized rat io (INR) calculationOrdered By: Navid Dominguez on 09-06-2024 INR Coag (Bld) [Relative time] 2.4 {INR} [facility] MCV (mean corpuscular volume ) determinationOrdered By: Navid Dominguez on 09-06-2024 MCV (RBC) [Entitic vol] 76.5 fL Low 80-94 [facility] Comment on above: Performed By: #### L 100.0100, L500.2500, L300.3900 #### [facility] [address] [place], [address] Mean corpuscular hemoglobin (MCH) determinationOrdered By: Navid Dominguez on 09-06-2024 MCH (RBC) [Entitic mass] 24.6 pg Low 27.0-32.0 [facility] Comment on above: Performed By: #### L 100.0100, L500.2500, L300.3900 #### [facility] [address] [place], [address] Mean corpuscular hemoglobin concentration (MCHC) determinationOrdered By: Navid Dominguez on 09-06-2024 MCHC (RBC) [Mass/Vol] 32.1 g/dL Normal 32-36 [facility] Comment on above: Performed By: #### L 100.0100, L500.2500, L300.3900 #### [facility] [address] [place], [address] Mean platelet volume determi nationOrdered By: Navid Dominguez on 09-06-2024 Platelet mean volume (Bld) [Entitic vol] 9.4 fL Normal 6.2-12.0 [facility] Comment on above: Performed By: #### L 100.0100, L500.2500, L300.3900 #### [facility] [address] [place], [address] Monocyte percentageOrdered B y: Navid Dominguez on 09-06-2024 Monocytes/100 WBC (Bld) 9.1 % Normal 0-10 [facility] Comment on above: Performed By: #### L 100.0100, L500.2500, L300.3900 #### [facility] [address] [place], [address] Neutrophil percentageOrdered By: Navid Dominguez on 09-06-2024 Neutrophils/100 WBC (Bld) 66.8 % Normal 47-70 [facility] Comment on above: Performed By: #### L 100.0100, L500.2500, L300.3900 #### [facility] [address] [place], [address] Nucleated red blood cell per centageOrdered By: Navid Dominguez on 09-06-2024 Nucleated RBC/100 WBC (Bld) [Ratio] 0 % 0-5 [facility] Platelet countOrdered By: Cameron Dominguez on 09-06-2024 Platelets (Bld) [#/Vol] 325 10*3/uL Normal 150-450 [facility] Comment on above: Performed By: #### L 100.0100, L500.2500, L300.3900 #### [facility] [address] [place], [address] Potassium measurement (mass/ volume)Ordered By: Navid Dominguez on 09-06-2024 Potassium (Unsp spec) [Mass/Vol] 3.5 mmol/L 3.3-5.1 [facility] Prothrombin Time w/INRon INR Coag (PPP) [Relative time] 2.4 {INR} Normal [facility] Comment on above: Performed By: #### M 200.1000, L509.7001, L101.9900, L501.6710 #### [facility] [address] [place], [place], [id number] Prothrombin timeOrdered By: Navid Dominguez on 09-06-2024 PT Coag (PPP) [Time] 27.0 s High 11.7-14.9 [facility] Comment on above: Performed By: #### M 200.1000, L509.7001, L101.9900, L501.6710 #### [facility] [address] [place], [address] Serum creatinine measurement (mass/volume)Ordered By: Navid Dominguez on 09-06-2024 Creatinine [Mass/Vol] 0.73 mg/dL Normal 0.70-1.20 [facility] Comment on above: Performed By: #### M 200.1000, L509.7001, L101.9900, L501.6710 #### [facility] [address] [place], [address] Serum glucose measurement (m ass/volume)Ordered By: Navid Dominguez on 09-06-2024 Glucose [Mass/Vol] 109 mg/dL High 70-99 [facility] Comment on above: Performed By: #### M 200.1000, L509.7001, L101.9900, L501.6710 #### [facility] [address] [place], [address] Serum or plasma calcium alvaro urement (mass/volume)Ordered By: Navid Dominguez on 09-06-2024 Calcium [Mass/Vol] 8.7 mg/dL Normal 7.6-11.0 [facility] Comment on above: Performed By: #### M 200.1000, L509.7001, L101.9900, L501.6710 #### [facility] [address] [place], [address] Serum or plasma urea nitroge n measurement (mass/volume)Ordered By: Navid Dominguez on 09-06-2024 Urea nitrogen [Mass/Vol] 11 mg/dL Normal 4-19 [facility] Comment on above: Performed By: #### M 200.1000, L509.7001, L101.9900, L501.6710 #### [facility] [address] [place], [address] Sodium levelOrdered By: Kamilah Dominguez on 09-06-2024 Sodium [Moles/Vol] 141 mmol/L Normal 133-145 [facility] Comment on above: Performed By: #### M 200.1000, L509.7001, L101.9900, L501.6710 #### [facility] [address] [place], [address] White blood cell (WBC) count Ordered By: Navid Dominguez on 09-06-2024 WBC (Bld) [#/Vol] 7.8 10*3/uL Normal 4.4-11.0 [facility] Comment on above: Performed By: #### L 100.0100, L500.2500, L300.3900 #### [facility] [address] [place], [address] Basic Metabolic Profile (BMP )on 09-05-2024 BUN/CRE 13.4 RATIO Normal 10-20 [facility] Comment on above: Performed By: #### M 200.1000, L509.7001, L101.9900, L501.6710 #### [facility] [address] [place], [address] Calcium [Mass/Vol] 8.6 mg/dL Normal 7.6-11.0 [facility] Comment on above: Performed By: #### M 200.1000, L509.7001, L101.9900, L501.6710 #### [facility] [address] [place], [address] Chloride [Moles/Vol] 105 mmol/L Normal 98-108 [facility] Comment on above: Performed By: #### M 200.1000, L509.7001, L101.9900, L501.6710 #### [facility] [address] [place], [address] CO2 [Moles/Vol] 21.9 mmol/L Normal 21.0-32.0 [facility] Comment on above: Performed By: #### M 200.1000, L509.7001, L101.9900, L501.6710 #### [facility] [address] [place], [address] Creatinine [Mass/Vol] 0.62 mg/dL Low 0.70-1.20 [facility] Comment on above: Performed By: #### M 200.1000, L509.7001, L101.9900, L501.6710 #### [facility] [address] [place], [address] ECRCL 64.10 ml/min Normal 50-250 [facility] Comment on above: Performed By: #### M 200.1000, L509.7001, L101.9900, L501.6710 #### [facility] [address] [place], [address] GAP 12 Normal 5-15 [facility] Comment on above: Performed By: #### M 200.1000, L509.7001, L101.9900, L501.6710 #### [facility] [address] [place], [address] GFR/1.73 sq M.predicted among non-blacks MDRD (S/P/Bld) [Vol rate/Area] 91 mL/min/{1.73_m2} Normal >60 [facility] Comment on above: Result Comment: mL/m in/1.73m2 CKD-EPI Creatinine Equation (2020) Performed By: #### M 200.1000, L509.7001, L101.9900, L501.6710 #### [facility] [address] [place], [address] Glucose [Mass/Vol] 119 mg/dL High 70-99 [facility] Comment on above: Performed By: #### M 200.1000, L509.7001, L101.9900, L501.6710 #### [facility] [address] [place], [address] Potassium [Moles/Vol] 3.3 mmol/L Normal 3.3-5.1 [facility] Comment on above: Performed By: #### M 200.1000, L509.7001, L101.9900, L501.6710 #### [facility] [address] [place], [address] Sodium [Moles/Vol] 139 mmol/L Normal 133-145 [facility] Comment on above: Performed By: #### M 200.1000, L509.7001, L101.9900, L501.6710 #### [facility] [address] [place], [address] Urea nitrogen [Mass/Vol] 8 mg/dL Normal 4-19 [facility] Comment on above: Performed By: #### M 200.1000, L509.7001, L101.9900, L501.6710 #### [facility] [address] [place], [address] Bilirubin Test strip Ql (U)O rdered By: Marta Black on 09-05-2024 Bilirubin Ql (U) Negative Negative [facility] CBC W/Diff, Automatedon 08-21 Absolute Lymph 0.96 X10 3/uL Normal 0.83-4.51 [facility] Comment on above: Performed By: #### M 200.1000, L509.7001, L101.9900, L501.6710 #### [facility] [address] [place], [address] Absolute Neut 7.6 X10 3/uL Normal 2.0-7.7 [facility] Comment on above: Performed By: #### M 200.1000, L509.7001, L101.9900, L501.6710 #### [facility] [address] [place], [address] Basophils/100 WBC (Bld) 0.7 % Normal 0-1 [facility] Comment on above: Performed By: #### M 200.1000, L509.7001, L101.9900, L501.6710 #### [facility] [address] [place], [address] Eosinophils/100 WBC (Bld) 4.0 % Normal 0-5 [facility] Comment on above: Performed By: #### M 200.1000, L509.7001, L101.9900, L501.6710 #### [facility] [address] [place], [address] Erythrocyte distribution width (RBC) [Ratio] 17.6 % High 11.6-14.6 [facility] Comment on above: Performed By: #### M 200.1000, L509.7001, L101.9900, L501.6710 #### [facility] [address] [place], [address] Hematocrit (Bld) [Volume fraction] 35.3 % Low 40-54 [facility] Comment on above: Performed By: #### M 200.1000, L509.7001, L101.9900, L501.6710 #### [facility] [address] [place], [address] Hemoglobin (Bld) [Mass/Vol] 11.3 g/dL Low 13.0-16.5 [facility] Comment on above: Performed By: #### M 200.1000, L509.7001, L101.9900, L501.6710 #### [facility] [address] [place], [address] IG% 0.400 Normal 0.0-0.9 [facility] Comment on above: Result Comment: IG% - Immature Granulocytes (promyelocytes, myelocytes and metamyelocytes) > 1% indicates that a LEFT SHIFT is Present. Performed By: #### M 200.1000, L509.7001, L101.9900, L501.6710 #### [facility] [address] [place], [address] Lymphocytes/100 WBC (Bld) 9.8 % Low 19-41 [facility] Comment on above: Performed By: #### M 200.1000, L509.7001, L101.9900, L501.6710 #### [facility] [address] [place], [address] MCH (RBC) [Entitic mass] 24.4 pg Low 27.0-32.0 [facility] Comment on above: Performed By: #### M 200.1000, L509.7001, L101.9900, L501.6710 #### [facility] [address] [place], [address] MCHC (RBC) [Mass/Vol] 32.0 g/dL Normal 32-36 [facility] Comment on above: Performed By: #### M 200.1000, L509.7001, L101.9900, L501.6710 #### [facility] [address] [place], [address] MCV (RBC) [Entitic vol] 76.2 fL Low 80-94 [facility] Comment on above: Performed By: #### M 200.1000, L509.7001, L101.9900, L501.6710 #### [facility] [address] [place], [address] Monocytes/100 WBC (Bld) 7.9 % Normal 0-10 [facility] Comment on above: Performed By: #### M 200.1000, L509.7001, L101.9900, L501.6710 #### [facility] [address] [place], [address] Neutrophils/100 WBC (Bld) 77.2 % High 47-70 [facility] Comment on above: Performed By: #### M 200.1000, L509.7001, L101.9900, L501.6710 #### [facility] [address] [place], [address] Nucleated RBC (Bld) [#/Vol] 0 10*3/uL Normal 0-5 [facility] Comment on above: Performed By: #### M 200.1000, L509.7001, L101.9900, L501.6710 #### [facility] [address] [place], [address] Platelet mean volume (Bld) [Entitic vol] 9.3 fL Normal 6.2-12.0 [facility] Comment on above: Performed By: #### M 200.1000, L509.7001, L101.9900, L501.6710 #### [facility] [address] [place], [address] Platelets (Bld) [#/Vol] 329 10*3/uL Normal 150-450 [facility] Comment on above: Performed By: #### M 200.1000, L509.7001, L101.9900, L501.6710 #### [facility] [address] [place], [address] RBC (Bld) [#/Vol] 4.63 10*6/uL Normal 4.6-6.2 [facility] Comment on above: Performed By: #### M 200.1000, L509.7001, L101.9900, L501.6710 #### [facility] [address] [place], [address] RDW SD 47.9 fl High 35.1-43.9 [facility] Comment on above: Performed By: #### M 200.1000, L509.7001, L101.9900, L501.6710 #### [facility] [address] [place], [address] WBC (Bld) [#/Vol] 9.8 10*3/uL Normal 4.4-11.0 [facility] Comment on above: Performed By: #### M 200.1000, L509.7001, L101.9900, L501.6710 #### [facility] [address] [place], [address] Ketones Test strip Ql (U)Ord ered By: Marta Black on 09-05-2024 Ketones Ql (U) Negative Negative [facility] Microscopic analysis of urin e for red blood cells (RBC)Ordered By: Marta Black on 09-05-2024 Microscopic analysis of urine for red blood cells (RBC) 0-5 SEEN /hpf 0-5 [facility] Mucus LM Ql (Urine sed)Order ed By: Marta Black on 09-05-2024 Mucus Ql (Urine sed) 0 SEEN /hpf [facility] Nitrite Test strip Ql (U)Ord ered By: Marta Black on 09-05-2024 Nitrite Ql (U) Negative Negative [facility] Protein Test strip Ql (U)Ord ered By: Marta Black on 09-05-2024 Protein Ql (U) 15 mg/dl High Negative [facility] Prothrombin Time w/INRon INR Coag (PPP) [Relative time] 2.2 {INR} Normal [facility] Comment on above: Performed By: #### M 200.1000, L509.7001, L101.9900, L501.6710 #### [facility] [address] [place], [address] PT Coag (PPP) [Time] 24.7 s High 11.7-14.9 [facility] Comment on above: Performed By: #### M 200.1000, L509.7001, L101.9900, L501.6710 #### [facility] [address] [place], [address] Squamous epithelial cells de tection in urine sediment by light microscopyOrdered By: Marta Black on 09-05-2024 Epithelial cells.squamous LM Ql (Urine sed) 0 SEEN /hpf 0-5 [facility] Urinalysis, Completeon 09-05 BACTERIA RARE Normal None Seen [facility] Comment on above: Order Comment: CLEAN CATCH Performed By: #### M 200.1000, L509.7001, L101.9900, L501.6710 #### [facility] [address] [place], [address] RBC 0-5 SEEN Normal 0-5 [facility] Comment on above: Order Comment: CLEAN CATCH Performed By: #### M 200.1000, L509.7001, L101.9900, L501.6710 #### [facility] [address] [place], [address] WBC 0-5 SEEN Normal 0-5 [facility] Comment on above: Order Comment: CLEAN CATCH Performed By: #### M 200.1000, L509.7001, L101.9900, L501.6710 #### [facility] [address] [place], [address] BILIRUBIN URINE Negative Normal Negative [facility] Comment on above: Order Comment: CLEAN CATCH Performed By: #### M 200.1000, L509.7001, L101.9900, L501.6710 #### [facility] [address] [place], [address] Clarity (U) Clear Normal Clear [facility] Comment on above: Order Comment: CLEAN CATCH Performed By: #### M 200.1000, L509.7001, L101.9900, L501.6710 #### [facility] [address] [place], [address] Color (U) Straw Normal Yellow [facility] Comment on above: Order Comment: CLEAN CATCH Performed By: #### M 200.1000, L509.7001, L101.9900, L501.6710 #### [facility] [address] [place], [address] GLUCOSE, UR Normal Normal Normal [facility] Comment on above: Order Comment: CLEAN CATCH Performed By: #### M 200.1000, L509.7001, L101.9900, L501.6710 #### [facility] [address] [place], [address] KETONE UR Negative Normal Negative [facility] Comment on above: Order Comment: CLEAN CATCH Performed By: #### M 200.1000, L509.7001, L101.9900, L501.6710 #### [facility] [address] [place], [address] LEUK ESTERASE Negative Normal Negative [facility] Comment on above: Order Comment: CLEAN CATCH Performed By: #### M 200.1000, L509.7001, L101.9900, L501.6710 #### [facility] [address] [place], [address] Nitrite Ql (U) Negative Normal Negative [facility] Comment on above: Order Comment: CLEAN CATCH Performed By: #### M 200.1000, L509.7001, L101.9900, L501.6710 #### [facility] [address] [place], [address] OCCULT BLOOD-UR 25 /ul Abnormal Negative [facility] Comment on above: Order Comment: CLEAN CATCH Performed By: #### M 200.1000, L509.7001, L101.9900, L501.6710 #### [facility] [address] [place], [address] pH UR 7.0 Normal 5.0 - 8.0 [facility] Comment on above: Order Comment: CLEAN CATCH Performed By: #### M 200.1000, L509.7001, L101.9900, L501.6710 #### [facility] [address] [place], [address] PROT DIPSTX 15 mg/dl Abnormal Negative [facility] Comment on above: Order Comment: CLEAN CATCH Performed By: #### M 200.1000, L509.7001, L101.9900, L501.6710 #### [facility] [address] [place], [address] SP.GR. DIPSTX 1.005 Normal 1.002-1.03 0 [facility] Comment on above: Order Comment: CLEAN CATCH Performed By: #### M 200.1000, L509.7001, L101.9900, L501.6710 #### [facility] [address] [place], [address] UROBILI Normal Normal Normal [facility] Comment on above: Order Comment: CLEAN CATCH Performed By: #### M 200.1000, L509.7001, L101.9900, L501.6710 #### [facility] [address] [place], [address] EPI,SQUAMOUS 0 SEEN Normal 0-5 [facility] Comment on above: Order Comment: CLEAN CATCH Performed By: #### M 200.1000, L509.7001, L101.9900, L501.6710 #### [facility] [address] [place], [address] Mucus Ql (Urine sed) 0 SEEN Normal [facility] Comment on above: Order Comment: CLEAN CATCH Performed By: #### M 200.1000, L509.7001, L101.9900, L501.6710 #### [facility] [address] [place], [address] Urine clarityOrdered By: Magnolia Black on 09-05-2024 Clarity (U) Clear Clear [facility] Urine color determinationOrd ered By: Marta Black on 09-05-2024 Color (U) Straw Yellow [facility] Urine glucose detectionOrder ed By: Marta Black on 09-05-2024 Glucose Ql (U) Normal mg/dl Normal [facility] Urine leukocyte esterase det ection by dipstickOrdered By: Marta Black on 09-05-2024 Leukocyte esterase Test strip Ql (U) Negative Negative [facility] Urine pHOrdered By: Marta Black on 09-05-2024 pH (U) 7.0 [pH] 5.0 - 8.0 [facility] Urine sediment bacteria coun t by microscopy (number/high power field)Ordered By: Marta Black on 09-05-2024 Bacteria LM.HPF (Urine sed) [#/Area] RARE /hpf None Seen [facility] Urine specific gravity measu rementOrdered By: Marta Black on 09-05-2024 Specific gravity (U) [Rel density] 1.005 1.002-1.03 0 [facility] Urine urobilinogen measureme ntOrdered By: Marta Black on 09-05-2024 Urobilinogen Ql (U) Normal mg/dl Normal [facility] White blood cell countOrdere d By: Marta Black on 09-05-2024 White blood cell count 0-5 SEEN /hpf 0-5 [facility] Basic Metabolic Profile (BMP )on 09-04-2024 BUN/CRE 17.3 RATIO Normal 10-20 [facility] Comment on above: Performed By: #### M 200.1000, L509.7001, L101.9900, L501.6710 #### [facility] [address] [place], [address] Calcium [Mass/Vol] 8.2 mg/dL Normal 7.6-11.0 [facility] Comment on above: Performed By: #### M 200.1000, L509.7001, L101.9900, L501.6710 #### [facility] [address] [place], [address] Chloride [Moles/Vol] 107 mmol/L Normal 98-108 [facility] Comment on above: Performed By: #### M 200.1000, L509.7001, L101.9900, L501.6710 #### [facility] [address] [place], [address] CO2 [Moles/Vol] 20.9 mmol/L Low 21.0-32.0 [facility] Comment on above: Performed By: #### M 200.1000, L509.7001, L101.9900, L501.6710 #### [facility] [address] [place], [address] Creatinine [Mass/Vol] 0.72 mg/dL Normal 0.70-1.20 [facility] Comment on above: Performed By: #### M 200.1000, L509.7001, L101.9900, L501.6710 #### [facility] [address] [place], [address] ECRCL 64.10 ml/min Normal 50-250 [facility] Comment on above: Performed By: #### M 200.1000, L509.7001, L101.9900, L501.6710 #### [facility] [address] [place], [address] GAP 11 Normal 5-15 [facility] Comment on above: Performed By: #### M 200.1000, L509.7001, L101.9900, L501.6710 #### [facility] [address] [place], [address] GFR/1.73 sq M.predicted among non-blacks MDRD (S/P/Bld) [Vol rate/Area] 87 mL/min/{1.73_m2} Normal >60 [facility] Comment on above: Result Comment: mL/m in/1.73m2 CKD-EPI Creatinine Equation (2020) Performed By: #### M 200.1000, L509.7001, L101.9900, L501.6710 #### [facility] [address] [place], [address] Glucose [Mass/Vol] 120 mg/dL High 70-99 [facility] Comment on above: Performed By: #### M 200.1000, L509.7001, L101.9900, L501.6710 #### [facility] [address] [place], [address] Potassium [Moles/Vol] 3.5 mmol/L Normal 3.3-5.1 [facility] Comment on above: Performed By: #### M 200.1000, L509.7001, L101.9900, L501.6710 #### [facility] [address] [place], [address] Sodium [Moles/Vol] 139 mmol/L Normal 133-145 [facility] Comment on above: Performed By: #### M 200.1000, L509.7001, L101.9900, L501.6710 #### [facility] [address] [place], [address] Urea nitrogen [Mass/Vol] 12 mg/dL Normal 4-19 [facility] Comment on above: Performed By: #### M 200.1000, L509.7001, L101.9900, L501.6710 #### [facility] [address] [place], [address] CBC W/Diff, Automatedon 08-21 Absolute Lymph 0.89 X10 3/uL Normal 0.83-4.51 [facility] Comment on above: Performed By: #### M 200.1000, L509.7001, L101.9900, L501.6710 #### [facility] [address] [place], [address] Absolute Neut 8.9 X10 3/uL High 2.0-7.7 [facility] Comment on above: Performed By: #### M 200.1000, L509.7001, L101.9900, L501.6710 #### [facility] [address] [place], [address] Basophils/100 WBC (Bld) 0.8 % Normal 0-1 [facility] Comment on above: Performed By: #### M 200.1000, L509.7001, L101.9900, L501.6710 #### [facility] [address] [place], [address] Eosinophils/100 WBC (Bld) 5.3 % High 0-5 [facility] Comment on above: Performed By: #### M 200.1000, L509.7001, L101.9900, L501.6710 #### [facility] [address] [place], [address] Erythrocyte distribution width (RBC) [Ratio] 17.5 % High 11.6-14.6 [facility] Comment on above: Performed By: #### M 200.1000, L509.7001, L101.9900, L501.6710 #### [facility] [address] [place], [address] Hematocrit (Bld) [Volume fraction] 33.3 % Low 40-54 [facility] Comment on above: Performed By: #### M 200.1000, L509.7001, L101.9900, L501.6710 #### [facility] [address] [place], [address] Hemoglobin (Bld) [Mass/Vol] 10.7 g/dL Low 13.0-16.5 [facility] Comment on above: Performed By: #### M 200.1000, L509.7001, L101.9900, L501.6710 #### [facility] [address] [place], [address] IG% 0.400 Normal 0.0-0.9 [facility] Comment on above: Result Comment: IG% - Immature Granulocytes (promyelocytes, myelocytes and metamyelocytes) > 1% indicates that a LEFT SHIFT is Present. Performed By: #### M 200.1000, L509.7001, L101.9900, L501.6710 #### [facility] [address] [place], [address] Lymphocytes/100 WBC (Bld) 7.8 % Low 19-41 [facility] Comment on above: Performed By: #### M 200.1000, L509.7001, L101.9900, L501.6710 #### [facility] [address] [place], [address] MCH (RBC) [Entitic mass] 24.6 pg Low 27.0-32.0 [facility] Comment on above: Performed By: #### M 200.1000, L509.7001, L101.9900, L501.6710 #### [facility] [address] [place], [address] MCHC (RBC) [Mass/Vol] 32.1 g/dL Normal 32-36 [facility] Comment on above: Performed By: #### M 200.1000, L509.7001, L101.9900, L501.6710 #### [facility] [address] [place], [address] MCV (RBC) [Entitic vol] 76.6 fL Low 80-94 [facility] Comment on above: Performed By: #### M 200.1000, L509.7001, L101.9900, L501.6710 #### [facility] [address] [place], [address] Monocytes/100 WBC (Bld) 7.7 % Normal 0-10 [facility] Comment on above: Performed By: #### M 200.1000, L509.7001, L101.9900, L501.6710 #### [facility] [address] [place], [address] Neutrophils/100 WBC (Bld) 78.0 % High 47-70 [facility] Comment on above: Performed By: #### M 200.1000, L509.7001, L101.9900, L501.6710 #### [facility] [address] [place], [address] Nucleated RBC (Bld) [#/Vol] 0 10*3/uL Normal 0-5 [facility] Comment on above: Performed By: #### M 200.1000, L509.7001, L101.9900, L501.6710 #### [facility] [address] [place], [address] Platelet mean volume (Bld) [Entitic vol] 10.6 fL Normal 6.2-12.0 [facility] Comment on above: Performed By: #### M 200.1000, L509.7001, L101.9900, L501.6710 #### [facility] [address] [place], [address] Platelets (Bld) [#/Vol] 305 10*3/uL Normal 150-450 [facility] Comment on above: Performed By: #### M 200.1000, L509.7001, L101.9900, L501.6710 #### [facility] [address] [place], [address] RBC (Bld) [#/Vol] 4.35 10*6/uL Low 4.6-6.2 [facility] Comment on above: Performed By: #### M 200.1000, L509.7001, L101.9900, L501.6710 #### [facility] [address] [place], [address] RDW SD 48.3 fl High 35.1-43.9 [facility] Comment on above: Performed By: #### M 200.1000, L509.7001, L101.9900, L501.6710 #### [facility] [address] [place], [address] WBC (Bld) [#/Vol] 11.4 10*3/uL High 4.4-11.0 [facility] Comment on above: Performed By: #### M 200.1000, L509.7001, L101.9900, L501.6710 #### [facility] [address] [place], [address] Prothrombin Time w/INRon INR Coag (PPP) [Relative time] 1.9 {INR} Normal [facility] Comment on above: Performed By: #### L 300.3900 #### [facility] [address] [place], [address] PT Coag (PPP) [Time] 21.8 s High 11.7-14.9 [facility] Comment on above: Performed By: #### L 300.3900 #### [facility] [address] [place], [address] Basic Metabolic Profile (BMP )on 09-03-2024 BUN/CRE 13.3 RATIO Normal 10-20 [facility] Comment on above: Performed By: #### M 200.1000, L509.7001, L101.9900, L501.6710 #### [facility] [address] [place], [address] Calcium [Mass/Vol] 8.5 mg/dL Normal 7.6-11.0 [facility] Comment on above: Performed By: #### M 200.1000, L509.7001, L101.9900, L501.6710 #### [facility] [address] [place], [address] Chloride [Moles/Vol] 104 mmol/L Normal 98-108 [facility] Comment on above: Performed By: #### M 200.1000, L509.7001, L101.9900, L501.6710 #### [facility] [address] [place], [address] CO2 [Moles/Vol] 19.1 mmol/L Low 21.0-32.0 [facility] Comment on above: Performed By: #### M 200.1000, L509.7001, L101.9900, L501.6710 #### [facility] [address] [place], [address] Creatinine [Mass/Vol] 0.74 mg/dL Normal 0.70-1.20 [facility] Comment on above: Performed By: #### M 200.1000, L509.7001, L101.9900, L501.6710 #### [facility] [address] [place], [address] ECRCL 64.10 ml/min Normal 50-250 [facility] Comment on above: Performed By: #### M 200.1000, L509.7001, L101.9900, L501.6710 #### [facility] [address] [place], [address] GAP 13 Normal 5-15 [facility] Comment on above: Performed By: #### M 200.1000, L509.7001, L101.9900, L501.6710 #### [facility] [address] [place], [address] GFR/1.73 sq M.predicted among non-blacks MDRD (S/P/Bld) [Vol rate/Area] 87 mL/min/{1.73_m2} Normal >60 [facility] Comment on above: Result Comment: mL/m in/1.73m2 CKD-EPI Creatinine Equation (2020) Performed By: #### M 200.1000, L509.7001, L101.9900, L501.6710 #### [facility] [address] [place], [address] Glucose [Mass/Vol] 111 mg/dL High 70-99 [facility] Comment on above: Performed By: #### M 200.1000, L509.7001, L101.9900, L501.6710 #### [facility] [address] [place], [address] Potassium [Moles/Vol] 3.5 mmol/L Normal 3.3-5.1 [facility] Comment on above: Performed By: #### M 200.1000, L509.7001, L101.9900, L501.6710 #### [facility] [address] [place], [address] Sodium [Moles/Vol] 137 mmol/L Normal 133-145 [facility] Comment on above: Performed By: #### M 200.1000, L509.7001, L101.9900, L501.6710 #### [facility] [address] [place], [address] Urea nitrogen [Mass/Vol] 10 mg/dL Normal 4-19 [facility] Comment on above: Performed By: #### M 200.1000, L509.7001, L101.9900, L501.6710 #### [facility] [address] [place], [address] CBC W/Diff, Automatedon -03 26-2024 Absolute Lymph 0.82 X10 3/uL Low 0.83-4.51 [facility] Comment on above: Performed By: #### M 200.1000, L509.7001, L101.9900, L501.6710 #### [facility] [address] [place], [address] Absolute Neut 10.2 X10 3/uL High 2.0-7.7 [facility] Comment on above: Performed By: #### M 200.1000, L509.7001, L101.9900, L501.6710 #### [facility] [address] [place], [address] Basophils/100 WBC (Bld) 0.7 % Normal 0-1 [facility] Comment on above: Performed By: #### M 200.1000, L509.7001, L101.9900, L501.6710 #### [facility] [address] [place], [address] Eosinophils/100 WBC (Bld) 2.8 % Normal 0-5 [facility] Comment on above: Performed By: #### M 200.1000, L509.7001, L101.9900, L501.6710 #### [facility] [address] [place], [address] Erythrocyte distribution width (RBC) [Ratio] 17.5 % High 11.6-14.6 [facility] Comment on above: Performed By: #### M 200.1000, L509.7001, L101.9900, L501.6710 #### [facility] [address] [place], [address] Hematocrit (Bld) [Volume fraction] 35.6 % Low 40-54 [facility] Comment on above: Performed By: #### M 200.1000, L509.7001, L101.9900, L501.6710 #### [facility] [address] [place], [address] Hemoglobin (Bld) [Mass/Vol] 11.3 g/dL Low 13.0-16.5 [facility] Comment on above: Performed By: #### M 200.1000, L509.7001, L101.9900, L501.6710 #### [facility] [address] [place], [address] IG% 0.400 Normal 0.0-0.9 [facility] Comment on above: Result Comment: IG% - Immature Granulocytes (promyelocytes, myelocytes and metamyelocytes) > 1% indicates that a LEFT SHIFT is Present. Performed By: #### M 200.1000, L509.7001, L101.9900, L501.6710 #### [facility] [address] [place], [address] Lymphocytes/100 WBC (Bld) 6.7 % Low 19-41 [facility] Comment on above: Performed By: #### M 200.1000, L509.7001, L101.9900, L501.6710 #### [facility] [address] [place], [address] MCH (RBC) [Entitic mass] 24.7 pg Low 27.0-32.0 [facility] Comment on above: Performed By: #### M 200.1000, L509.7001, L101.9900, L501.6710 #### [facility] [address] [place], [address] MCHC (RBC) [Mass/Vol] 31.7 g/dL Low 32-36 [facility] Comment on above: Performed By: #### M 200.1000, L509.7001, L101.9900, L501.6710 #### [facility] [address] [place], [address] MCV (RBC) [Entitic vol] 77.7 fL Low 80-94 [facility] Comment on above: Performed By: #### M 200.1000, L509.7001, L101.9900, L501.6710 #### [facility] [address] [place], [address] Monocytes/100 WBC (Bld) 6.0 % Normal 0-10 [facility] Comment on above: Performed By: #### M 200.1000, L509.7001, L101.9900, L501.6710 #### [facility] [address] [place], [address] Neutrophils/100 WBC (Bld) 83.4 % High 47-70 [facility] Comment on above: Performed By: #### M 200.1000, L509.7001, L101.9900, L501.6710 #### [facility] [address] [place], [address] Nucleated RBC (Bld) [#/Vol] 0 10*3/uL Normal 0-5 [facility] Comment on above: Performed By: #### M 200.1000, L509.7001, L101.9900, L501.6710 #### [facility] [address] [place], [address] Platelet mean volume (Bld) [Entitic vol] 9.9 fL Normal 6.2-12.0 [facility] Comment on above: Performed By: #### M 200.1000, L509.7001, L101.9900, L501.6710 #### [facility] [address] [place], [address] Platelets (Bld) [#/Vol] 252 10*3/uL Normal 150-450 [facility] Comment on above: Performed By: #### M 200.1000, L509.7001, L101.9900, L501.6710 #### [facility] [address] [place], [address] RBC (Bld) [#/Vol] 4.58 10*6/uL Low 4.6-6.2 [facility] Comment on above: Performed By: #### M 200.1000, L509.7001, L101.9900, L501.6710 #### [facility] [address] [place], [address] RDW SD 48.2 fl High 35.1-43.9 [facility] Comment on above: Performed By: #### M 200.1000, L509.7001, L101.9900, L501.6710 #### [facility] [address] [place], [address] WBC (Bld) [#/Vol] 12.3 10*3/uL High 4.4-11.0 [facility] Comment on above: Performed By: #### M 200.1000, L509.7001, L101.9900, L501.6710 #### [facility] [address] [place], [address] Prothrombin Time w/INRon INR Coag (PPP) [Relative time] 1.8 {INR} Normal [facility] Comment on above: Performed By: #### L 300.3900 #### [facility] [address] [place], [address] PT Coag (PPP) [Time] 20.9 s High 11.7-14.9 [facility] Comment on above: Performed By: #### L 300.3900 #### [facility] [address] [place], [address] Trough vancomycin levelOrder ed By: Marta Black on 09-03-2024 Vancomycin trough [Mass/Vol] 8.2 ug/mL 5.0-15.0 [facility] Comment on above: Recommended goal [...] therapy recommended for serious lifethreatening infections include:- Reqmknumqs-Uwojirejletu-Xdjoigzpa (Ventilator/Healtcare Associated)-Sepsis PLEASE CONTACT PHARMACY SERVICES (#0532) FOR INTERPRETATIONOF RESULTS. Vancomycin, Trough Levelon 0 09-03-2024 VANCO, TROUGH 8.2 ug/mL Normal 5.0-15.0 [facility] Comment on above: Order Comment: Comme nts: Trough to be drawn 30 mins prior to scheduled [id number] Result Comment: Ilya mmended goal trough ranges [...] (Ventilator/Healtcare Associated) -Sepsis PLEASE CONTACT PHARMACY SERVICES (#1095) FOR INTERPRETATION OF RESULTS. Performed By: #### M 200.1000, L509.7001, L101.9900, L501.6710 #### [facility] [address] [place], [address] Basic Metabolic Profile (BMP )on 09-02-2024 BUN/CRE 18.9 RATIO Normal 10-20 [facility] Comment on above: Performed By: #### M 200.1000, L509.7001, L101.9900, L501.6710 #### [facility] [address] [place], [address] Calcium [Mass/Vol] 8.5 mg/dL Normal 7.6-11.0 [facility] Comment on above: Performed By: #### M 200.1000, L509.7001, L101.9900, L501.6710 #### [facility] [address] [place], [address] Chloride [Moles/Vol] 105 mmol/L Normal 98-108 [facility] Comment on above: Performed By: #### M 200.1000, L509.7001, L101.9900, L501.6710 #### [facility] [address] [place], [address] CO2 [Moles/Vol] 14.2 mmol/L Low 21.0-32.0 [facility] Comment on above: Performed By: #### M 200.1000, L509.7001, L101.9900, L501.6710 #### [facility] [address] [place], [address] Creatinine [Mass/Vol] 0.75 mg/dL Normal 0.70-1.20 [facility] Comment on above: Performed By: #### M 200.1000, L509.7001, L101.9900, L501.6710 #### [facility] [address] [place], [address] ECRCL 64.10 ml/min Normal 50-250 [facility] Comment on above: Performed By: #### M 200.1000, L509.7001, L101.9900, L501.6710 #### [facility] [address] [place], [address] GAP 15 Normal 5-15 [facility] Comment on above: Performed By: #### M 200.1000, L509.7001, L101.9900, L501.6710 #### [facility] [address] [place], [address] GFR/1.73 sq M.predicted among non-blacks MDRD (S/P/Bld) [Vol rate/Area] 86 mL/min/{1.73_m2} Normal >60 [facility] Comment on above: Result Comment: mL/m in/1.73m2 CKD-EPI Creatinine Equation (2020) Performed By: #### M 200.1000, L509.7001, L101.9900, L501.6710 #### [facility] [address] [place], [address] Glucose [Mass/Vol] 105 mg/dL High 70-99 [facility] Comment on above: Performed By: #### M 200.1000, L509.7001, L101.9900, L501.6710 #### [facility] [address] [place], [address] Potassium [Moles/Vol] 4.3 mmol/L Normal 3.3-5.1 [facility] Comment on above: Result Comment: Hemo lysis present, Results??could be affected. ?? Performed By: #### M 200.1000, L509.7001, L101.9900, L501.6710 #### [facility] [address] [place], [address] Sodium [Moles/Vol] 135 mmol/L Normal 133-145 [facility] Comment on above: Performed By: #### M 200.1000, L509.7001, L101.9900, L501.6710 #### [facility] [address] [place], [address] Urea nitrogen [Mass/Vol] 14 mg/dL Normal 4-19 [facility] Comment on above: Performed By: #### M 200.1000, L509.7001, L101.9900, L501.6710 #### [facility] [address] [place], [address] CBC W/Diff, Automatedon -03 25-2024 Absolute Lymph 0.52 X10 3/uL Low 0.83-4.51 [facility] Comment on above: Performed By: #### M 200.1000, L509.7001, L101.9900, L501.6710 #### [facility] [address] [place], [address] Absolute Neut 12.1 X10 3/uL High 2.0-7.7 [facility] Comment on above: Performed By: #### M 200.1000, L509.7001, L101.9900, L501.6710 #### [facility] [address] [place], [address] Basophils/100 WBC (Bld) 0.6 % Normal 0-1 [facility] Comment on above: Performed By: #### M 200.1000, L509.7001, L101.9900, L501.6710 #### [facility] [address] [place], [address] Eosinophils/100 WBC (Bld) 2.2 % Normal 0-5 [facility] Comment on above: Performed By: #### M 200.1000, L509.7001, L101.9900, L501.6710 #### [facility] [address] [place], [address] Erythrocyte distribution width (RBC) [Ratio] 17.8 % High 11.6-14.6 [facility] Comment on above: Performed By: #### M 200.1000, L509.7001, L101.9900, L501.6710 #### [facility] [address] [place], [address] Hematocrit (Bld) [Volume fraction] 39.9 % Low 40-54 [facility] Comment on above: Performed By: #### M 200.1000, L509.7001, L101.9900, L501.6710 #### [facility] [address] [place], [address] Hemoglobin (Bld) [Mass/Vol] 11.9 g/dL Low 13.0-16.5 [facility] Comment on above: Performed By: #### M 200.1000, L509.7001, L101.9900, L501.6710 #### [facility] [address] [place], [address] IG% 0.700 Normal 0.0-0.9 [facility] Comment on above: Result Comment: IG% - Immature Granulocytes (promyelocytes, myelocytes and metamyelocytes) > 1% indicates that a LEFT SHIFT is Present. Performed By: #### M 200.1000, L509.7001, L101.9900, L501.6710 #### [facility] [address] [place], [address] Lymphocytes/100 WBC (Bld) 3.8 % Low 19-41 [facility] Comment on above: Performed By: #### M 200.1000, L509.7001, L101.9900, L501.6710 #### [facility] [address] [place], [address] MCH (RBC) [Entitic mass] 24.5 pg Low 27.0-32.0 [facility] Comment on above: Performed By: #### M 200.1000, L509.7001, L101.9900, L501.6710 #### [facility] [address] [place], [address] MCHC (RBC) [Mass/Vol] 29.8 g/dL Low 32-36 [facility] Comment on above: Performed By: #### M 200.1000, L509.7001, L101.9900, L501.6710 #### [facility] [address] [place], [address] MCV (RBC) [Entitic vol] 82.3 fL Normal 80-94 [facility] Comment on above: Performed By: #### M 200.1000, L509.7001, L101.9900, L501.6710 #### [facility] [address] [place], [address] Monocytes/100 WBC (Bld) 4.8 % Normal 0-10 [facility] Comment on above: Performed By: #### M 200.1000, L509.7001, L101.9900, L501.6710 #### [facility] [address] [place], [address] Neutrophils/100 WBC (Bld) 87.9 % High 47-70 [facility] Comment on above: Performed By: #### M 200.1000, L509.7001, L101.9900, L501.6710 #### [facility] [address] [place], [address] Nucleated RBC (Bld) [#/Vol] 0 10*3/uL Normal 0-5 [facility] Comment on above: Performed By: #### M 200.1000, L509.7001, L101.9900, L501.6710 #### [facility] [address] [place], [address] Platelet mean volume (Bld) [Entitic vol] 10.6 fL Normal 6.2-12.0 [facility] Comment on above: Performed By: #### M 200.1000, L509.7001, L101.9900, L501.6710 #### [facility] [address] [place], [address] Platelets (Bld) [#/Vol] 227 10*3/uL Normal 150-450 [facility] Comment on above: Performed By: #### M 200.1000, L509.7001, L101.9900, L501.6710 #### [facility] [address] [place], [address] RBC (Bld) [#/Vol] 4.85 10*6/uL Normal 4.6-6.2 [facility] Comment on above: Performed By: #### M 200.1000, L509.7001, L101.9900, L501.6710 #### [facility] [address] [place], [address] RDW SD 52.3 fl High 35.1-43.9 [facility] Comment on above: Performed By: #### M 200.1000, L509.7001, L101.9900, L501.6710 #### [facility] [address] [place], [address] WBC (Bld) [#/Vol] 13.8 10*3/uL High 4.4-11.0 [facility] Comment on above: Performed By: #### M 200.1000, L509.7001, L101.9900, L501.6710 #### [facility] [address] [place], [address] Prothrombin Time w/INRon INR Coag (PPP) [Relative time] 1.9 {INR} Normal [facility] Comment on above: Performed By: #### M 200.1000, L509.7001, L101.9900, L501.6710 #### [facility] [address] [place], [address] PT Coag (PPP) [Time] 22.1 s High 11.7-14.9 [facility] Comment on above: Performed By: #### M 200.1000, L509.7001, L101.9900, L501.6710 #### [facility] [address] [place], [address] RESPIRATORY PANEL MOLECULARo n 09-02-2024 RP PANEL ADENOVIRUS Not Detected INFLUENZA A Not Detected INFLUENZA A (SUBTYPE H1) Not Detected INFLUENZA A (SUBTYPE H3) Not Detected INFLUENZA B Not Detected HUMAN METAPHNEUMO Not Detected PARAINFLUENZA 1 Not Detected PARAINFLUENZA 2 Not Detected PARAINFLUENZA 3 Not Detected PARAINFLUENZA 4 Not Detected RHINOVIRUS Not Detected RSV A Not Detected RSV B Not Detected Normal [facility] Comment on above: Performed By: #### M 200.1000, L509.7001, L101.9900, L501.6710 #### [facility] [address] [place], [address] Absolute lymphocyte countOrd ered By: Inderjit Gillespie on 09-01-2024 Lymphocytes Auto (Unsp spec) [#/Vol] 0.62 10*3/uL Low 0.83-4.51 [facility] Absolute neutrophil countOrd ered By: Inderjit Gillespie on 09-01-2024 Neutrophils (Bld) [#/Vol] 11.3 10*3/uL High 2.0-7.7 [facility] Anion gap in Serum or Plasma Ordered By: Inderjit Gillespie on 09-01-2024 Anion gap [Moles/Vol] 10 mmol/L 5-15 [facility] Automated lymphocyte count a s percentage of total leukocytesOrdered By: Inderjit Gillespie on 09-01-2024 Lymphocytes/100 WBC Auto (Unsp spec) 4.8 % Low 19-41 [facility] BUN/creatinine ratioOrdered By: Inderjit Gillespie on 09-01-2024 Urea nitrogen/Creatinine [Mass ratio] 21.6 mg/mg High 10- [facility] Basic Metabolic Profile (BMP )on 09-01-2024 BUN/CRE 21.6 RATIO High - [facility] Comment on above: Performed By: #### M 200.1000, L509.7001, L101.9900, L501.6710 #### [facility] Laboratory [address] [place], [address] Calcium [Mass/Vol] 8.8 mg/dL Normal 7.6-11.0 [facility] Comment on above: Performed By: #### M 200.1000, L509.7001, L101.9900, L501.6710 #### [facility] Laboratory [address] [place], [address] Chloride [Moles/Vol] 105 mmol/L Normal 98-108 [facility] Comment on above: Performed By: #### M 200.1000, L509.7001, L101.9900, L501.6710 #### [facility] Laboratory [address] [place], [address] CO2 [Moles/Vol] 24.3 mmol/L Normal 21.0-32.0 [facility] Comment on above: Performed By: #### M 200.1000, L509.7001, L101.9900, L501.6710 #### [facility] Laboratory [address] [place], [address] Creatinine [Mass/Vol] 0.77 mg/dL Normal 0.70-1.20 [facility] Comment on above: Performed By: #### M 200.1000, L509.7001, L101.9900, L501.6710 #### [facility] Laboratory [address] [place], [address] ECRCL 68.71 ml/min Normal 50-250 [facility] Comment on above: Performed By: #### M 200.1000, L509.7001, L101.9900, L501.6710 #### [facility] Laboratory [address] [place], [address] GAP 10 Normal 5-15 [facility] Comment on above: Performed By: #### M 200.1000, L509.7001, L101.9900, L501.6710 #### [facility] Laboratory [address] [place], [address] GFR/1.73 sq M.predicted among non-blacks MDRD (S/P/Bld) [Vol rate/Area] 86 mL/min/{1.73_m2} Normal >60 [facility] Comment on above: Result Comment: mL/m in/1.73m2 CKD-EPI Creatinine Equation (2020) Performed By: #### M 200.1000, L509.7001, L101.9900, L501.6710 #### [facility] Laboratory [address] [place], [address] Glucose [Mass/Vol] 112 mg/dL High 70-99 [facility] Comment on above: Performed By: #### M 200.1000, L509.7001, L101.9900, L501.6710 #### [facility] Laboratory [address] [place], [address] Potassium [Moles/Vol] 3.7 mmol/L Normal 3.3-5.1 [facility] Comment on above: Performed By: #### M 200.1000, L509.7001, L101.9900, L501.6710 #### [facility] Laboratory [address] [place], [address] Sodium [Moles/Vol] 139 mmol/L Normal 133-145 [facility] Comment on above: Performed By: #### M 200.1000, L509.7001, L101.9900, L501.6710 #### [facility] Laboratory [address] [place], [place], [address] Urea nitrogen [Mass/Vol] 17 mg/dL Normal 4-19 [facility] Comment on above: Performed By: #### M 200.1000, L509.7001, L101.9900, L501.6710 #### [facility] Laboratory [address] [place], [address] Basophil percentageOrdered B y: Inderjit Gillespie on 09-01-2024 Basophils/100 WBC (Bld) 0.4 % 0-1 [facility] Bilirubin Test strip Ql (U)O rdered By: Inderjit Gillespie on 09-01-2024 Bilirubin Ql (U) Negative Negative [facility] Blood cultureOrdered By: Magnolia Black on 09-01-2024 Bacteria identified Cx Nom (Bld) No growth in 5 days. [facility] Brain/Head without Contrasto n 09-01-2024 Brain/Head without Contrast [facility] Imaging Services [address] [place], [place] [address] Brain/Head without Contrast MR#: [id number] Acct: [id number] Name: ROBY FLORES Rep #: [id number] : 1935 M 89 From: Jose harris MD PCP: Dr. Stas Mora MD Status: REG ER Study: Brain/Head without Contrast Date of Exam: 08/21 05/17 Exam# [id number] Ordering Dr: Inderjit Gillespie MD PROCEDURE: BRAIN/HEAD [...] of the left maxillary sinus. Reading Location: [place] [address] CC: Dr. Inderjit Gillespie MD; Dr. Stas Mora MD Office Technology Instructor: Signed Normal [facility] CBC W/Diff, Automatedon 08-21 Absolute Lymph 0.62 X10 3/uL Low 0.83-4.51 [facility] Comment on above: Performed By: #### M 200.1000, L509.7001, L101.9900, L501.6710 #### [facility] Laboratory [address] [place], [address] Absolute Neut 11.3 X10 3/uL High 2.0-7.7 [facility] Comment on above: Performed By: #### M 200.1000, L509.7001, L101.9900, L501.6710 #### [facility] Laboratory [address] [place], [address] Basophils/100 WBC (Bld) 0.4 % Normal 0-1 [facility] Comment on above: Performed By: #### M 200.1000, L509.7001, L101.9900, L501.6710 #### [facility] Laboratory [address] [place], [address] Eosinophils/100 WBC (Bld) 1.2 % Normal 0-5 [facility] Comment on above: Performed By: #### M 200.1000, L509.7001, L101.9900, L501.6710 #### [facility] Laboratory [address] [place], [address] Erythrocyte distribution width (RBC) [Ratio] 17.2 % High 11.6-14.6 [facility] Comment on above: Performed By: #### M 200.1000, L509.7001, L101.9900, L501.6710 #### [facility] Laboratory [address] [place], [address] Hematocrit (Bld) [Volume fraction] 36.8 % Low 40-54 [facility] Comment on above: Performed By: #### M 200.1000, L509.7001, L101.9900, L501.6710 #### [facility] Laboratory [address] [place], [address] Hemoglobin (Bld) [Mass/Vol] 11.6 g/dL Low 13.0-16.5 [facility] Comment on above: Performed By: #### M 200.1000, L509.7001, L101.9900, L501.6710 #### [facility] Laboratory [address] [place], [address] IG% 0.400 Normal 0.0-0.9 [facility] Comment on above: Result Comment: IG% - Immature Granulocytes (promyelocytes, myelocytes and metamyelocytes) > 1% indicates that a LEFT SHIFT is Present. Performed By: #### M 200.1000, L509.7001, L101.9900, L501.6710 #### [facility] Laboratory [address] [place], [address] Lymphocytes/100 WBC (Bld) 4.8 % Low 19-41 [facility] Comment on above: Performed By: #### M 200.1000, L509.7001, L101.9900, L501.6710 #### [facility] Laboratory [address] [place], [address] MCH (RBC) [Entitic mass] 24.6 pg Low 27.0-32.0 [facility] Comment on above: Performed By: #### M 200.1000, L509.7001, L101.9900, L501.6710 #### [facility] Laboratory [address] [place], [address] MCHC (RBC) [Mass/Vol] 31.5 g/dL Low 32-36 [facility] Comment on above: Performed By: #### M 200.1000, L509.7001, L101.9900, L501.6710 #### [facility] Laboratory [address] [place], [address] MCV (RBC) [Entitic vol] 78.0 fL Low 80-94 [facility] Comment on above: Performed By: #### M 200.1000, L509.7001, L101.9900, L501.6710 #### [facility] Laboratory [address] [place], [address] Monocytes/100 WBC (Bld) 5.7 % Normal 0-10 [facility] Comment on above: Performed By: #### M 200.1000, L509.7001, L101.9900, L501.6710 #### [facility] Laboratory [address] [place], [address] Neutrophils/100 WBC (Bld) 87.5 % High 47-70 [facility] Comment on above: Performed By: #### M 200.1000, L509.7001, L101.9900, L501.6710 #### [facility] Laboratory [address] [place], [address] Nucleated RBC (Bld) [#/Vol] 0 10*3/uL Normal 0-5 [facility] Comment on above: Performed By: #### M 200.1000, L509.7001, L101.9900, L501.6710 #### [facility] Laboratory [address] [place], [address] Platelet mean volume (Bld) [Entitic vol] 9.4 fL Normal 6.2-12.0 [facility] Comment on above: Performed By: #### M 200.1000, L509.7001, L101.9900, L501.6710 #### [facility] Laboratory [address] [place], [address] Platelets (Bld) [#/Vol] 258 10*3/uL Normal 150-450 [facility] Comment on above: Performed By: #### M 200.1000, L509.7001, L101.9900, L501.6710 #### [facility] Laboratory [address] [place], [address] RBC (Bld) [#/Vol] 4.72 10*6/uL Normal 4.6-6.2 [facility] Comment on above: Performed By: #### M 200.1000, L509.7001, L101.9900, L501.6710 #### [facility] Laboratory [address] [place], [address] RDW SD 48.2 fl High 35.1-43.9 [facility] Comment on above: Performed By: #### M 200.1000, L509.7001, L101.9900, L501.6710 #### [facility] Laboratory [address] [place], [address] WBC (Bld) [#/Vol] 12.9 10*3/uL High 4.4-11.0 [facility] Comment on above: Performed By: #### M 200.1000, L509.7001, L101.9900, L501.6710 #### [facility] Laboratory [address] [place], [address] Gene 09-01-2024 MICHELINE Telephone (PHMEWO) ROBY FLORES ([id number]) 1935 M Date Time Provider Department 09/01/24 RUSSELL AGUAYO During your visit today, we recorded the following information about you: Russell Aguayo [facility] 09/01/2024 10:01 AM Signed PCP reached [...] alvarado using Good Rx coupons. At [facility] (his current pharmacy), he can get a 1 mo supply for ~$30. If he switches [facility] prescription to [facility], he can get a 1 mo supply for ~$20. See coupons below. Rivastigmine patches are also available via [employer]. It appears the cheapest option is through [facility], in which he can get 30 patches for $52. Coupon also below. Sending to PCP to review and provide patient with coupon card information. Russell Aguayo, Saúl, [facility] Primary Care Clinical Pharmacist Memantine coupon at [facility] Memantine coupon at [facility] Rivastigmine patches coupon at [facility] Luciana Cisneros MD 09/01/2024 1:27 PM Signed Rahul Chau, Staff please let patient know what the pharmacist as opined on. 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 Encounter Status:Closed by RUSSELL AGUAYO on 09/01/24 Normal [facility] COVID 19 AG RAPID (EMILY Gomez)on 09-01-2024 [...] RAPID METHOD BinaxNow COVID19 Ag Card Normal [facility] Comment on above: Performed By: #### M 200.1000, L509.7001, L101.9900, L501.6710 #### [facility] Laboratory [address] [place], [address] COVID-19 virus antigen assay Ordered By: Marta Black on 09-01-2024 SARS-CoV-2 (COVID-19) Ag IA.rapid Ql (Resp) [facility] CRPon 09-01-2024 C-REACTIVE PROT 26.80 mg/L High 0.0-3.0 [facility] Comment on above: Performed By: #### M 200.1000, L509.7001, L101.9900, L501.6710 #### [facility] Laboratory [address] [place], [address] Carbon dioxide, total [Moles /volume] in Central venous bloodOrdered By: Inderjit Gillespie on 09-01-2024 CO2 [Moles/Vol] 24.3 mmol/L 21.0-32.0 [facility] Chest 1 View (Portable)on Chest 1 View (Portable) [facility] Imaging Services [address] [place], [place] [address] Chest 1 View (Portable) MR#: [id number] Acct: [id number] Name: ROBY FLORES Rep #: [id number] : 1935 M 89 From: Jose harris MD PCP: Dr. Stas Mora MD Status: REG ER Study: Chest 1 View (Portable) Date of Exam: 09/01/24 Exam# [id number] Ordering Dr: Inderjit Gillespie MD PROCEDURE: CHEST [...] No acute abnormality is seen. Reading Location: [facility] CC: Dr. Inderjit Gillespie MD; Dr. Stas Mora MD Office Technology Instructor: Signed Normal [facility] Chloride assayOrdered By: Aries Gillespie on 09-01-2024 Chloride [Moles/Vol] 105 mmol/L 98-108 [facility] Emergency Department Summary on 09-01-2024 Emergency Department Summary [facility] Medical Records Department [address] [place] [address] Emergency Department Summary 09/01/24 MR#: [id number] Acct: [id number] Name: ROBY FLORES Rep #: [id number] : 1935 89 From: Inderjit Gillespie MD [...] shoulders elbows and wrist. He has normal retread operator strength. Neurologically he is awake alert. [...] Air 09/01/24 (more content not included)... Normal [facility] Eosinophil percentageOrdered By: Inderjit Gillespie on 09-01-2024 Eosinophils/100 WBC (Bld) 1.2 % 0-5 [facility] Erythrocyte Sed Rateon 09-01 SED RATE 2 mm/hr Normal 0-20 [facility] Comment on above: Performed By: #### M 200.1000, L509.7001, L101.9900, L501.6710 #### [facility] Laboratory [address] [place], [address] Erythrocyte distribution wid th ratioOrdered By: Inderjit Gillespie on 09-01-2024 Erythrocyte distribution width (RBC) [Ratio] 17.2 % High 11.6-14.6 [facility] Erythrocyte distribution wid th standard deviationOrdered By: Inderjit Gillespie on 09-01-2024 Erythrocyte distribution width (RBC) [Ratio] 48.2 fl High 35.1-43.9 [facility] Erythrocyte sedimentation ra teOrdered By: Marta Black on 09-01-2024 ESR (Bld) [Velocity] 2 mm/h 0-20 [facility] Glomerular filtration rate ( GFR) estimation/1.73 sq m using serum, plasma, or whole bOrdered By: Inderjit Gillespie on 09-01-2024 GFR/1.73 sq M.predicted among non-blacks MDRD (S/P/Bld) [Vol rate/Area] 86 mL/min/{1.73_m2} >60 [facility] Comment on above: mL/min/1.73m2 CKD-EP I Creatinine Equation (2020) H AND P Exam - [facility] 09-01-2024 H&P Exam - Hospitalist [facility] Medical Records Department [address] [place] [address] H P Exam - Hospitalist 09/01/24 1018 MR#: [id number] Acct: [id number] Name: ROBY FLORES Rep #: [id number] : 1935 89 From: Kathy Wells MD PCP: Dr. Stas Mora MD Status:ADM GERMAN [place] [facility] [place] HPI - General General Date of Admission: [...] in the ED were BP of 180/89, KS of 87, RR of 18 and temp [...] and weakness due to mechanical fall. [facility] Medical History Chronic anticoagulation TIA (transient [...] 99 Oxy (more content not included)... Normal [facility] Hematocrit Auto (Bld) [Volum e fraction]Ordered By: Inderjit Gillespie on 09-01-2024 Hematocrit (Bld) [Volume fraction] 36.8 % Low 40-54 [facility] Hemoglobin measurementOrdere d By: Inderjit Gillespie on 09-01-2024 Hemoglobin (Bld) [Mass/Vol] 11.6 g/dL Low 13.0-16.5 [facility] Hips B/L min 2 views w/ Pelv adolfo 09-01-2024 Hips B/L min 2 views w/ Pelvis [facility] Imaging Services [address] [place], [place] [address] Hips B/L min 2 views w/ Pelvis MR#: [id number] Acct: [id number] Name: ROBY FLORES Rep #: [id number] : 1935 M 89 From: Jose harris MD PCP: Dr. Stas Mora MD Status: REG ER Study: Hips B/L min 2 views w/ Pelvis Date of Exam: 0 09/01/24 Exam# [id number] Ordering Dr: Inderjit Gillespie MD PROCEDURE: HIPS [...] No fracture or dislocation present. Reading Location: [facility] CC: Dr. Inderjit Gillespie MD; Dr. Stas Mora MD Office Technology Instructor: Signed Normal [facility] Immature granulocytes/100 WB C Auto (Bld)Ordered By: Inderjit Gillespie on 09-01-2024 Immature granulocytes/100 WBC (Bld) 0.400 % 0.0-0.9 [facility] Comment on above: IG% - Immature Granu locytes (promyelocytes, myelocytes and metamyelocytes) > 1% indicates that a LEFT SHIFT is Present. International normalized rat io (INR) calculationOrdered By: Inderjit Gillespie on 09-01-2024 INR Coag (Bld) [Relative time] 1.8 {INR} [facility] Ketones Test strip Ql (U)Ord ered By: Inderjit Gillespie on 09-01-2024 Ketones Ql (U) Negative Negative [facility] L509.7001on 09-01-2024 Procalcitonin 0.07 ng/mL Normal <=0.10 [facility] Comment on above: Result Comment: [...] #### M 200.1000, L509.7001, L101.9900, L501.6710 #### [facility] Laboratory [address] [place], [address] MCV (mean corpuscular volume ) determinationOrdered By: Inderjit Gillespie on 09-01-2024 MCV (RBC) [Entitic vol] 78.0 fL Low 80-94 [facility] Mean corpuscular hemoglobin (MCH) determinationOrdered By: Inderjit Gillespie on 09-01-2024 MCH (RBC) [Entitic mass] 24.6 pg Low 27.0-32.0 [facility] Mean corpuscular hemoglobin concentration (MCHC) determinationOrdered By: Inderjit Gillespie on 09-01-2024 MCHC (RBC) [Mass/Vol] 31.5 g/dL Low 32-36 [facility] Mean platelet volume determi nationOrdered By: Inderjit Gillespie on 09-01-2024 Platelet mean volume (Bld) [Entitic vol] 9.4 fL 6.2-12.0 [facility] Microscopic analysis of urin e for red blood cells (RBC)Ordered By: Inderjit Gillespie on 09-01-2024 Microscopic analysis of urine for red blood cells (RBC) 0 SEEN /hpf 0-5 [facility] Monocyte percentageOrdered B y: Inderjit Gillespie on 09-01-2024 Monocytes/100 WBC (Bld) 5.7 % 0-10 [facility] Mucus LM Ql (Urine sed)Order ed By: Inderjit Gillespie on 09-01-2024 Mucus Ql (Urine sed) 0 SEEN /hpf [facility] Neutrophil percentageOrdered By: Inderjit Gillespie on 09-01-2024 Neutrophils/100 WBC (Bld) 87.5 % High 47-70 [facility] Nitrite Test strip Ql (U)Ord ered By: Idnerjit Gillespie on 09-01-2024 Nitrite Ql (U) Negative Negative [facility] Nucleated red blood cell per centageOrdered By: Inderjit Gillespie on 09-01-2024 Nucleated RBC/100 WBC (Bld) [Ratio] 0 % 0-5 [facility] Platelet countOrdered By: Aries Gillespie on 09-01-2024 Platelets (Bld) [#/Vol] 258 10*3/uL 150-450 [facility] Potassium measurement (mass/ volume)Ordered By: Inderjit Gillespie on 09-01-2024 Potassium (Unsp spec) [Mass/Vol] 3.7 mmol/L 3.3-5.1 [facility] Procalcitonin [Mass/volume] in Serum or Plasma by ImmunoassayOrdered By: Marta Black on 09-01-2024 Procalcitonin IA [Mass/Vol] 0.07 ng/mL <0.11 [facility] Comment on above: Interpretation:<0.10 -0.25 [...] Protein Ql (U) 15 mg/dl High Negative [facility] Prothrombin Time w/INRon INR Coag (PPP) [Relative time] 1.8 {INR} Normal [facility] Comment on above: Performed By: #### M 200.1000, L509.7001, L101.9900, L501.6710 #### [facility] Laboratory [address] [place], [address] PT Coag (PPP) [Time] 21.4 s High 11.7-14.9 [facility] Comment on above: Performed By: #### M 200.1000, L509.7001, L101.9900, L501.6710 #### [facility] Laboratory [address] [place], [address] Prothrombin timeOrdered By: Inderjit Gillespie on 09-01-2024 PT Coag (PPP) [Time] 21.4 s High 11.7-14.9 [facility] RBC Auto (Bld) [#/Vol]Ordere d By: Inderjit Gillespie on 09-01-2024 RBC (Bld) [#/Vol] 4.72 10*6/uL 4.6-6.2 [facility] Respiratory pathogens detect ion panel by molecular detection methodOrdered By: Marta Black on 09-01-2024 Respiratory pathogens DNA and RNA panel LOLI+probe (Resp) [facility] Serum creatinine measurement (mass/volume)Ordered By: Inderjit Gillespie on 09-01-2024 Creatinine [Mass/Vol] 0.77 mg/dL 0.70-1.20 [facility] Serum glucose measurement (m ass/volume)Ordered By: Inderjit Gillespie on 09-01-2024 Glucose [Mass/Vol] 112 mg/dL High 70-99 [facility] Serum or plasma C reactive p rotein measurement (mass/volume)Ordered By: Marta Black on 09-01-2024 CRP [Mass/Vol] 26.80 mg/L High 0.0-3.0 [facility] Serum or plasma calcium alvaro urement (mass/volume)Ordered By: Inderjit Gillespie on 09-01-2024 Calcium [Mass/Vol] 8.8 mg/dL 7.6-11.0 [facility] Serum or plasma urea nitroge n measurement (mass/volume)Ordered By: Inderjit Gillespie on 09-01-2024 Urea nitrogen [Mass/Vol] 17 mg/dL 4-19 [facility] Sodium levelOrdered By: Inderjit Gillespie on 09-01-2024 Sodium [Moles/Vol] 139 mmol/L 133-145 [facility] Squamous epithelial cells de tection in urine sediment by light microscopyOrdered By: Inderjit Gillespie on 09-01-2024 Epithelial cells.squamous LM Ql (Urine sed) 0 SEEN /hpf 0-5 [facility] Urinalysis, Completeon 09-01 BACTERIA 0 SEEN Normal None Seen [facility] Comment on above: Order Comment: CLEAN CATCH Performed By: #### L 400.0001 #### [facility] Laboratory [address] [place], [place], [address] EPI,SQUAMOUS 0 SEEN Normal 0-5 [facility] Comment on above: Order Comment: CLEAN CATCH Performed By: #### L 400.0001 #### [facility] Laboratory [address] [place], [address] Mucus Ql (Urine sed) 0 SEEN Normal [facility] Comment on above: Order Comment: CLEAN CATCH Performed By: #### L 400.0001 #### [facility] Laboratory [address] [place], [address] RBC 0 SEEN Normal 0-5 [facility] Comment on above: Order Comment: CLEAN CATCH Performed By: #### L 400.0001 #### [facility] Laboratory [address] [place], [address] WBC 0 SEEN Normal 0-5 [facility] Comment on above: Order Comment: CLEAN CATCH Performed By: #### L 400.0001 #### [facility] Laboratory [address] [place], [address] Urine clarityOrdered By: Mario Gillespie on 09-01-2024 Clarity (U) Clear Clear [facility] Urine color determinationOrd ered By: Inderjit Gillespie on 09-01-2024 Color (U) Yellow Yellow [facility] Urine glucose detectionOrder ed By: Inderjit Gillespie on 09-01-2024 Glucose Ql (U) Normal mg/dl Normal [facility] Urine leukocyte esterase det ection by dipstickOrdered By: Inderjit Gillespie on 09-01-2024 Leukocyte esterase Test strip Ql (U) Negative Negative [facility] Urine pHOrdered By: Inderjit pack on 09-01-2024 pH (U) 8.0 [pH] 5.0 - 8.0 [facility] Urine sediment bacteria coun t by microscopy (number/high power field)Ordered By: Inderjit Gillespie on 09-01-2024 Bacteria LM.HPF (Urine sed) [#/Area] 0 /[HPF] None Seen [facility] Urine specific gravity measu rementOrdered By: Inderjit Gillespie on 09-01-2024 Specific gravity (U) [Rel density] 1.010 1.002-1.03 0 [facility] Urine urobilinogen measureme ntOrdered By: Inderjit Gillespie on 09-01-2024 Urobilinogen Ql (U) 4 mg/dl High Normal [facility] White blood cell (WBC) count Ordered By: Inderjit Gillespie on 09-01-2024 WBC (Bld) [#/Vol] 12.9 10*3/uL High 4.4-11.0 [facility] White blood cell countOrdere d By: Inderjit Gillespie on 09-01-2024 White blood cell count 0 SEEN /hpf 0-5 [facility] CNOVon 08-31-2024 CNOV Office Visit (GERIWR ) SANDRAROBY ([id number]) 1935 M Date Time Provider Department 08/31/24 [...] also thought he had a car in [facility] and wanted to retrieve it, 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 Additionally, [...] tablet wa (more content not included)... Normal [facility] 08-31-2024 CNPN Telephone (PHAMTE) ROBY FLORES ([id number]) 1935 M Date Time Provider Department 08/31/24 CORETTA JALLOH During your visit today, we recorded the following information about you: Coretta Jalloh RPh 08/31/2024 2:13 PM Signed [facility] Ambulatory Pharmacy Anticoagulation Clinic Anticoagulation Episode Summary Anticoagulation Care Providers Provider Role Specialty Phone number Stas Mora MD Referring Family Medicine [phone] Roby Radha Flores is a 89 year [...] ALLERGIES No Known Allergies Indication for Warfarin: custodial current use of 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 Coretta Jalloh [facility] Clinical Pharmacist, Pharmacy Anticoagulation Clinic Pharmacy Anticoagulation Clinic Pager: [phone]. Coretta Jalloh RPh 09/28/2024 11:30 AM Signed Per [facility] on 09/21, pt is in [facility] for rehab. He has been for for nearly 3 weeks now. Will check back next week before we call Maria Guadalupe. Will watch for notes of discharge. Coretta Jalloh RP Coretta Jalloh RPh 10/05/2024 2:05 PM Signed Spoke to Maria Guadalupe. She said he is at an AL Facility and they are managing his AC but she isn't aware of results. She isn't sure of discharge timing. She said maybe check back in a few weeks. Will check back in October for any updates. Coretta Jalloh [facility] Adrina (Poultry Dressing Worker)Elana 10/27/2024 4:17 PM Signed Updating PCC LTC / Rehab list. Called and stp patient's significant other, Maria Guadalupe. She stated patient is still in SNF at this time. She was agreeable to f/u in a few weeks. Tracker updated for f/u in 2-3 weeks. Elana Campbell CPhT (Recreational Facilities Motel Manager) Pharmacy Anticoagulation Clinic Satish (Poultry Dressing Worker)Parmjit 11/25/2024 3:45 PM Signed Left message requesting an update. Patient has appt with PCP 12/05. Will update tracker to that day to see if there are any updates. Adrian (Poultry Dressing Worker)Elana 12/08/2024 4:41 PM Signed Updating PCC LTC / Rehab list. Attempted to call patient's caregiver, Maria Guadalupe, to get update on LTC/SNF status. Message left requesting a return call to [phone], option 2. Elana Campbell CPhT (Recreational Facilities Motel Manager) [facility] (Poultry Dressing Worker), Elana 12/22/2024 3:52 PM Signed Updating PCC LTC / Rehab list. Attempted to call patient's caregiver, Maria Guadalupe, to get update on LTC/SNF status. Message left requesting a return call to [phone], option 2. Elana Campbell CPhT (Recreational Facilities Motel Manager) [facility] (Poultry Dressing Worker), Elana 12/29/2024 5:26 PM Signed Updating PCC LTC / Rehab list. Attempted to call patient's caregiver, Maria Guadalupe, to get update on LTC/SNF status. Message left requesting a return call to [phone], option 2. Elana Campbell CPhT (Recreational Facilities Motel Manager) Pharmacy Anticoagulation Clinic [facility] (Poultry Dressing Worker), (more content not included)... Normal [facility] PT panel Coag (PPP)on 2024 INR Coag (PPP) [Relative time] 1.9 {INR} High 0.9-1.3 [facility] Comment on above: Order Comment: Stone parmar Type: BLOOD SPECIMENOrdering Facility: [facility] Address: [address] [place] [id number] Result Comment: Mary min K Antagonist (VKA) Therapeutic Range: INR 2 to 3 (Target INR of 2.5) Note: For patients treated with VKA drugs,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 Pharmacy Anticoagulation Clinic Pager: [phone]. Coretta Jalloh [facility] 02/24/2024 3:53 PM Signed Patient was due to test INR today at the lab - will continue to monitor for results. Coretta Jalloh PharmD Pharmacy Anticoagulation Clinic Coretta Jalloh 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 custodial current use of anticoagulant [Z79.01]09/22/2016 Paroxysmal atrial fibrillation (HCC) [I48.0] 09/22/2016 Hyperlipidemia [E78.5] 08/26/2022 Encounter Status:Closed by CORETTA JALLOH on 02/10/24 Normal [facility] PT panel Coag (PPP)on 2023 INR Coag (PPP) [Relative time] 3.3 {INR} High 0.9-1.3 [facility] Comment on above: Order Comment: Speci men Type: BLOOD SPECIMENOrdering Facility: [facility] Address: [address] [place] [address] Result Comment: Mary min K Antagonist (VKA) Therapeutic Range: INR 2 to 3 (Target INR of 2.5) Note: For patients treated with VKA drugs, such as warfarin, the [employer] 2012 Guideline recommends [...] #### 3 4528-0 ####[facility]CL[facility] [id number] [place] [address] [place] PT Coag (PPP) [Time] 31.4 s High <13.1 [facility] Comment on above: Order Comment: Speci men Type: BLOOD SPECIMENOrdering Facility: [facility] Address: [address] [place] [address] Performed By: #### 3 4528-0 ####[facility] [id number] [address] [place] CBC W Auto Differential pane l (Bld)on 06-04-2023 Basophils (Bld) [#/Vol] 0.06 10*3/uL <0.11 k/uL [facility] Basophils/100 WBC (Bld) 0.9 % [facility] Differential cell count method Nom (Bld) Auto [facility] Eosinophils (Bld) [#/Vol] 0.16 10*3/uL <0.46 k/uL [facility] Eosinophils/100 WBC (Bld) 2.4 % [facility] Erythrocyte distribution width (RBC) [Ratio] 15.7 % High 11.5 - 15.0 % [facility] Hematocrit (Bld) [Volume fraction] 34.9 % Low 39.0 - 51.0 % [facility] Hemoglobin (Bld) [Mass/Vol] 10.0 g/dL Low 13.0 - 17.0 g/dL [facility] Immature granulocytes (Bld) [#/Vol] <0.10 k/uL [facility] Immature granulocytes/100 WBC (Bld) 0.3 % [facility] Lymphocytes (Bld) [#/Vol] 1.65 10*3/uL 1.00 - 4.00 k/uL [facility] Lymphocytes/100 WBC (Bld) 24.8 % [facility] MCH (RBC) [Entitic mass] 20.9 pg Low 26.0 - 34.0 pg [facility] MCHC (RBC) [Mass/Vol] 28.7 g/dL Low 30.5 - 36.0 g/dL [facility] MCV (RBC) [Entitic vol] 73.0 fL Low 80.0 - 100.0 fL [facility] Monocytes (Bld) [#/Vol] 0.61 10*3/uL <0.87 k/uL [facility] Monocytes/100 WBC (Bld) 9.2 % [facility] Neutrophils (Bld) [#/Vol] 4.16 10*3/uL 1.45 - 7.50 k/uL [facility] Neutrophils/100 WBC (Bld) 62.4 % [facility] Nucleated RBC (Bld) [#/Vol] <0.01 k/uL [facility] Nucleated RBC/100 WBC (Bld) [Ratio] 0.0 /100 WBC [facility] Platelet mean volume (Bld) [Entitic vol] 10.7 fL 9.0 - 12.7 fL [facility] Platelets (Bld) [#/Vol] 297 10*3/uL 150 - 400 k/uL [facility] RBC (Bld) [#/Vol] 4.78 10*6/uL 4.20 - 6.00 m/uL [facility] WBC (Bld) [#/Vol] 6.66 10*3/uL 3.70 - 11.00 k/uL [facility] MRI BRAIN WO IVCONon 02-17-2 023 [facility] Absolute lymphocyte countOrd ered By: Brian Cunningham on 02-10-2023 Lymphocytes Auto (Unsp spec) [#/Vol] 0.99 10*3/uL 0.83-4.51 [facility] Basophil percentageOrdered B y: Brian Cunningham on 02-10-2023 Basophil percentage 0-5 SEEN /hpf 0-5 [facility] Basophils/100 WBC (Bld) 0.8 % 0-1 [facility] Chloride [Moles/Vol] 108 mmol/L 98-107 [facility] Eosinophils/100 WBC (Bld) 0.4 % 0-5 [facility] Glucose [Mass/Vol] 117 mg/dL 74-106 [facility] Comment on above: Fasting Glucose resu lt from 100 to 125 mg/dL suggests IMPAIRED HOMEOSTASIS per A.D.A. criteria. Neutrophils (Bld) [#/Vol] 5.8 10*3/uL 2.0-7.7 [facility] Neutrophils/100 WBC (Bld) 77.9 % 47-70 [facility] Potassium [Moles/Vol] 4.0 mmol/L 3.5-5.1 [facility] Sodium [Moles/Vol] 140 mmol/L 136-145 [facility] WBC (Bld) [#/Vol] 7.5 10*3/uL 4.4-11.0 [facility] Bilirubin Test strip Ql (U)O rdered By: Brian Cunningham on 02-10-2023 Bilirubin Ql (U) 1 mg/dL Negative [facility] Comment on above: COLOR OF URINE MAY A FFECT DIPSTICK RESULTS. Blood erythrocytes count (nu mber/volume)Ordered By: Brian Cunningham on 02-10-2023 RBC (Bld) [#/Vol] 4.42 10*6/uL 4.6-6.2 [facility] Blood hemoglobin measurement (mass/volume)Ordered By: Brian Cunningham on 02-10-2023 Hemoglobin (Bld) [Mass/Vol] 10.6 g/dL 13.0-16.5 [facility] Blood lymphocytes/100 leukoc ytesOrdered By: Brian Cunningham on 02-10-2023 Lymphocytes/100 WBC (Bld) 13.3 % 19-41 [facility] Blood monocytes/100 leukocyt esOrdered By: Brian Cunningham on 02-10-2023 Monocytes/100 WBC (Bld) 7.2 % 0-10 [facility] Blood platelet mean volumeOr dered By: Brian Cunningham on 02-10-2023 Platelet mean volume (Bld) [Entitic vol] 9.9 fL 6.2-12.0 [facility] Determination of erythrocyte mean corpuscular volume (MCV)Ordered By: Brian Cunningham on 02-10-2023 MCV (RBC) [Entitic vol] 81.9 fL 80-94 [facility] Hematocrit Auto (Bld) [Volum e fraction]Ordered By: Brian Cunningham on 02-10-2023 Hematocrit (Bld) [Volume fraction] 36.2 % 40-54 [facility] INR in Blood by Coagulation assayOrdered By: Brian Cunningham on 02-10-2023 INR Coag (Bld) [Relative time] 1.2 {INR} [facility] Influenza virus A and B and SARS-CoV-2 (COVID-19) Ag panel - Upper respiratory specimOrdered By: Brian Cunningham on 02-10-2023 SARS-CoV-2 (COVID-19) RNA LOLI+probe Ql (Resp) [facility] Ketones Test strip Ql (U)Ord ered By: Brian Cunningham on 02-10-2023 Ketones Ql (U) 5 mg/dl Negative [facility] Laboratory - Chemistry and C hemistry - challengeOrdered By: Brian Cunningham on 02-10-2023 CO2 [Moles/Vol] 30.0 mmol/L 21.0-32.0 [facility] Urea nitrogen/Creatinine [Mass ratio] 23.8 mg/mg 10-20 [facility] Laboratory - CoagulationOrde red By: Brian Cunningham on 02-10-2023 aPTT Coag (Bld) [Time] 26.3 s 24.1-36.2 [facility] PT Coag (PPP) [Time] 15.6 s 11.7-14.9 [facility] Laboratory - Hematology and Cell countsOrdered By: Brian Cunningham on 02-10-2023 Erythrocyte distribution width (RBC) [Entitic vol] 41.8 fL 35.1-43.9 [facility] Erythrocyte distribution width (RBC) [Ratio] 14.1 % 11.6-14.6 [facility] Immature granulocytes/100 WBC (Bld) 0.400 % 0.0-0.9 [facility] Comment on above: IG% - Immature Granu locytes (promyelocytes, myelocytes and metamyelocytes) > 1% indicates that a LEFT SHIFT is Present. MCH (RBC) [Entitic mass] 24.0 pg 27.0-32.0 [facility] Nucleated RBC/100 WBC (Bld) [Ratio] 0 % 0-5 [facility] MCHC Auto (RBC) [Mass/Vol]Or dered By: Brian Cunningham on 02-10-2023 MCHC (RBC) [Mass/Vol] 29.3 g/dL 32-36 [facility] Mucus LM Ql (Urine sed)Order ed By: Brian Cunningham on 02-10-2023 Mucus Ql (Urine sed) 0 SEEN /hpf [facility] Nitrite Test strip Ql (U)Ord ered By: Brian Cunningham on 02-10-2023 Nitrite Ql (U) Negative Negative [facility] No Panel InformationOrdered By: Brian Cunningham on 02-10-2023 Estimated Creatinine Clearance Calc 68.37 ml/min [facility] Estimated GFR (MDRD) Amer 118 mL/min >60 [facility] Comment on above: GFR Calc Estimated GFR (MDRD) Non-Af Amer 97 mL/min >60 [facility] Comment on above: Non- GFR Calc Troponin I High Sensitivity 16 pg/mL 3.0-78.0 [facility] Comment on above: Please Note: New Hiwot t Units and Gender Specific Reference Ranges. For more information see Policy Stat Procedure Carmichaels High Sensitivity Troponin (TNIH) and attachments. Platelets bldOrdered By: Caitlyn Cunningham on 02-10-2023 Platelets (Bld) [#/Vol] 328 10*3/uL 150-450 [facility] Protein Test strip Ql (U)Ord ered By: Brian Cunningham on 02-10-2023 Protein Ql (U) 15 mg/dl Negative [facility] Serum or plasma calcium alvaro urement (mass/volume)Ordered By: Brian Cunningham on 02-10-2023 Calcium [Mass/Vol] 8.9 mg/dL 8.5-10.1 [facility] Serum or plasma creatinine m easurement (mass/volume)Ordered By: Brian Cunningham on 02-10-2023 Creatinine [Mass/Vol] 0.80 mg/dL 0.70-1.30 [facility] Comment on above: The validity of the calculated GFR & GFRAA in patients over 70 years has not been determined. Clinical correlation is essential. Serum or plasma urea nitroge n measurement (mass/volume)Ordered By: Brian Cunningham on 02-10-2023 Urea nitrogen [Mass/Vol] 19 mg/dL 7-18 [facility] Squamous epithelial cells de tection in urine sediment by light microscopyOrdered By: Brian Cunningham on 02-10-2023 Epithelial cells.squamous LM Ql (Urine sed) 0 SEEN /hpf 0-5 [facility] Thin prep Papanicolaou smear with manual screeningOrdered By: Brian Cunningham on 02-10-2023 Thin prep Papanicolaou smear with manual screening 2 5-15 [facility] Urine blood detectionOrdered By: Brian Cunningham on 02-10-2023 RBC Ql (U) Negative Negative [facility] RBC Ql (U) 0 SEEN /hpf 0-5 [facility] Urine clarityOrdered By: Caitlyn Cunningham on 02-10-2023 Clarity (U) Clear Clear [facility] Urine color determinationOrd ered By: Brian Cunningham on 02-10-2023 Color (U) Yellow Yellow [facility] Urine glucose detectionOrder ed By: Brian Cunningham on 02-10-2023 Glucose Ql (U) Normal mg/dl Normal [facility] Urine leukocyte esterase det ection by dipstickOrdered By: Brian Cunningham on 02-10-2023 Leukocyte esterase Test strip Ql (U) 25 /ul Negative [facility] Urine pHOrdered By: Brian swain on 02-10-2023 pH (U) 6.5 [pH] 5.0 - 8.0 [facility] Urine sediment bacteria coun t by microscopy (number/high power field)Ordered By: Brian Cunninghma on 02-10-2023 Bacteria LM.HPF (Urine sed) [#/Area] 0 /[HPF] None Seen [facility] Urine specific gravity measu rementOrdered By: Brian Cunningham on 02-10-2023 Specific gravity (U) [Rel density] 1.015 1.002-1.03 0 [facility] Urobilinogen Auto test strip Ql (U)Ordered By: Brian Cunningham on 02-10-2023 Urobilinogen Ql (U) 4 mg/dl Normal [facility] CT HEAD OR BRAIN W/O CONTRAS [...] 11/17/2022 4:26:20 PM Ordering Provider: STERLING LYNCH [facility] ([place]) XR Pelvis and Hip - left AP and Lateral frogon 05-21-2022 IMPRESSION: No acute fracture or hip dislocation Office Technology Instructor: EDUAR Transcribe Date/Time: May 21 2022 3:41P Dictated by : JUDY MCKENZIE MD This examination was interpreted and the report reviewed and electronically signed by: JUDY MCKENZIE MD on May 21 2022 3:43PM [facility] DIVISION OF RADIOLOGY * * *Final [...] Small acetabular osteophytes. DIVISION OF RADIOLOGY Provider, [facility] Kari [facility] - 05/21/2022 * * *Final Report* [...] IMPRESSION: No acute fracture or hip dislocation Office Technology Instructor: PSCB Transcribe Date/Time: May 21 2022 3:41P Dictated by : JUDY MCKENZIE MD This examination was interpreted and the report reviewed and electronically signed by: JUDY MCKENZIE MD on May 21 2022 3:43PM EST [facility] Radiology Study observation (narrative) [facility] XR Pelvis and Hip - left AP and Lateral frogOrdered By: Ccf Provider on 05-21-2022 [facility] PT panel Coag (PPP)on 2022 INR Coag (Bld) [Relative time] 1.7 {INR} [facility] Basophil percentageon 2021 Cholesterol [Mass/Vol] 152 mg/dL <200 [facility] Work Phone: Comment on above: <200 mg/dL Desirable 200-240 mg/dL Borderline >240 mg/dL High Risk Triglyceride [Mass/Vol] 76 mg/dL <199 [facility] Work Phone: Comment on above: The drugs N-Acetylcy steine and Metamizole may falsely depress this assay.Serum Triglycerides Reference Interval Normal <150 mg/dL Borderline high 150 - 199 mg/dL High 200 - 499 mg/dL Very High > or = 500 mg/dL INR in Blood by Coagulation assayon 12-22-2021 INR Coag (Bld) [Relative time] 2.5 {INR} [facility] Work Phone: Laboratory - Chemistry and C hemistry - challengeon 12-22-2021 Magnesium [Mass/Vol] 2.1 mg/dL 1.6-2.6 [facility] Work Phone: Laboratory - Coagulationon 1 PT Coag (PPP) [Time] 27.0 s 11.7-14.9 [facility] Work Phone: No Panel Informationon 12-22 Thyroid Stimulating Hormone (TSH) 0.42 uIU/mL 0.358-3.74 [facility] Work Phone: Serum or plasma cholesterol in HDL measurement (mass/volume)on 12-22-2021 Cholesterol in HDL [Mass/Vol] 35 mg/dL >40 [facility] Work Phone: Comment on above: The drugs N-Acetylcy steine and Metamizole may falsely depress this assay. Reference Range HDL <40 mg/dL Low HDL Cholesterol HDL >or= 60 mg/dL High HDL Cholesterol Serum or plasma cholesterol in VLDL measurement (mass/volume)on 12-22-2021 Cholesterol in VLDL [Mass/Vol] 15 mg/dL 5-40 [facility] Work Phone: Serum or plasma low density lipoprotein (LDL) cholesterol measurement (mass/volume)on 12-22-2021 Cholesterol in LDL [Mass/Vol] 102 mg/dL 0-130 [facility] Work Phone: Whole blood hemoglobin A1c/t otal hemoglobin ratio (mass fraction)on 12-22-2021 HbA1c (Bld) [Mass fraction] 5.9 % 3.8-5.6 [facility] Work Phone: Comment on above: Normal < 5.7 % Predi abetic 5.7 - 6.4 % Diabetic >or= 6.5 % Please note range changes. Absolute lymphocyte counton 12-21-2021 Lymphocytes Auto (Unsp spec) [#/Vol] 1.23 10*3/uL 0.83-4.51 [facility] Work Phone: Basophil percentageon 2021 Basophils/100 WBC (Bld) 0.4 % 0-1 [facility] Work Phone: Chloride [Moles/Vol] 106 mmol/L 98-107 [facility] Work Phone: Eosinophils/100 WBC (Bld) 1.4 % 0-5 [facility] Work Phone: Glucose [Mass/Vol] 107 mg/dL 74-106 [facility] Work Phone: [phone] Comment on above: Fasting Glucose resu lt from 100 to 125 mg/dL suggests IMPAIRED HOMEOSTASIS per A.D.A. criteria. Neutrophils (Bld) [#/Vol] 5.7 10*3/uL 2.0-7.7 [facility] Work Phone: [phone] Neutrophils/100 WBC (Bld) 72.4 % 47-70 [facility] Work Phone: Potassium [Moles/Vol] 3.7 mmol/L 3.5-5.1 [facility] Work Phone: Sodium [Moles/Vol] 141 mmol/L 136-145 [facility] Work Phone: WBC (Bld) [#/Vol] 7.9 10*3/uL 4.4-11.0 [facility] Work Phone: Blood erythrocytes count (nu mber/volume)on 12-21-2021 RBC (Bld) [#/Vol] 4.85 10*6/uL 4.6-6.2 [facility] Work Phone: Blood hemoglobin measurement (mass/volume)on 12-21-2021 Hemoglobin (Bld) [Mass/Vol] 14.5 g/dL 13.0-16.5 [facility] Work Phone: [phone] Blood lymphocytes/100 leukoc yteson 12-21-2021 Lymphocytes/100 WBC (Bld) 15.5 % 19-41 [facility] Work Phone: [phone] Blood monocytes/100 leukocyt eson 12-21-2021 Monocytes/100 WBC (Bld) 9.9 % 0-10 [facility] Work Phone: Blood platelet mean volumeon 12-21-2021 Platelet mean volume (Bld) [Entitic vol] 10.2 fL 6.2-12.0 [facility] Work Phone: Determination of erythrocyte mean corpuscular volume (MCV)on 12-21-2021 MCV (RBC) [Entitic vol] 92.0 fL 80-94 [facility] Work Phone: Hematocrit Auto (Bld) [Volum e fraction]on 12-21-2021 Hematocrit (Bld) [Volume fraction] 44.6 % 40-54 [facility] Work Phone: INR in Blood by Coagulation assayon 12-21-2021 INR Coag (Bld) [Relative time] 2.3 {INR} [facility] Work Phone: Laboratory - Chemistry and C hemistry - challengeon 12-21-2021 CO2 [Moles/Vol] 29.0 mmol/L 21.0-32.0 [facility] Work Phone: Urea nitrogen/Creatinine [Mass ratio] 21.8 mg/mg 10-20 [facility] Work Phone: Laboratory - Coagulationon 1 aPTT Coag (Bld) [Time] 36.6 s 24.1-36.2 [facility] Work Phone: PT Coag (PPP) [Time] 24.7 s 11.7-14.9 [facility] Work Phone: Laboratory - Hematology and Cell countson 12-21-2021 Erythrocyte distribution width (RBC) [Entitic vol] 42.2 fL 35.1-43.9 [facility] Work Phone: Erythrocyte distribution width (RBC) [Ratio] 12.5 % 11.6-14.6 [facility] Work Phone: Immature granulocytes/100 WBC (Bld) 0.400 % 0.0-0.9 [facility] Work Phone: Comment on above: IG% - Immature Granu locytes (promyelocytes, myelocytes and metamyelocytes) > 1% indicates that a LEFT SHIFT is Present. MCH (RBC) [Entitic mass] 29.9 pg 27.0-32.0 [facility] Work Phone: Nucleated RBC/100 WBC (Bld) [Ratio] 0 % 0-5 [facility] Work Phone: MCHC Auto (RBC) [Mass/Vol]on 12-21-2021 MCHC (RBC) [Mass/Vol] 32.5 g/dL 32-36 [facility] Work Phone: No Panel Informationon 12-21 Estimated Creatinine Clearance Calc 66.90 ml/min [facility] Work Phone: Estimated GFR (MDRD) Amer 107 mL/min >60 [facility] Work Phone: Comment on above: GFR Calc Estimated GFR (MDRD) Non-Af Amer 88 mL/min >60 [facility] Work Phone: Comment on above: Non- GFR Calc Troponin I High Sensitivity 13 pg/mL 3.0-78.0 [facility] Work Phone: Comment on above: Please Note: New Hiwot t Units and Gender Specific Reference Ranges. For more information see Policy Stat Procedure Carmichaels High Sensitivity Troponin (TNIH) and attachments. Platelets bldon 12-21-2021 Platelets (Bld) [#/Vol] 241 10*3/uL 150-450 [facility] Work Phone: Serum or plasma calcium alvaro urement (mass/volume)on 12-21-2021 Calcium [Mass/Vol] 9.2 mg/dL 8.5-10.1 [facility] Work Phone: Serum or plasma creatinine m easurement (mass/volume)on 12-21-2021 Creatinine [Mass/Vol] 0.87 mg/dL 0.70-1.30 [facility] Work Phone: Comment on above: The validity of the calculated GFR & GFRAA in patients over 70 years has not been determined. Clinical correlation is essential. Serum or plasma urea nitroge n measurement (mass/volume)on 12-21-2021 Urea nitrogen [Mass/Vol] 19 mg/dL 7-18 [facility] Work Phone: Thin prep Papanicolaou smear with manual screeningon 12-21-2021 Thin prep Papanicolaou smear with manual screening 6 5-15 [facility] Work Phone: CBC panel Auto (Bld)on 07-08 Erythrocyte distribution width (RBC) [Ratio] 13.1 % 11.5 - 15.0 % [facility] Hematocrit (Bld) [Volume fraction] 49.5 % 39.0 - 51.0 % [facility] Hemoglobin (Bld) [Mass/Vol] 15.9 g/dL 13.0 - 17.0 g/dL [facility] MCH (RBC) [Entitic mass] 29.6 pg 26.0 - 34.0 pg [facility] MCHC (RBC) [Mass/Vol] 32.1 g/dL 30.5 - 36.0 g/dL [facility] MCV (RBC) [Entitic vol] 92.2 fL 80.0 - 100.0 fL [facility] Nucleated RBC (Bld) [#/Vol] 10*3/uL <0.01 k/uL [facility] Platelet mean volume (Bld) [Entitic vol] 10.7 fL 9.0 - 12.7 fL [facility] Platelets (Bld) [#/Vol] 235 10*3/uL 150 - 400 k/uL [facility] RBC (Bld) [#/Vol] 5.37 10*6/uL 4.20 - 6.00 m/uL [facility] WBC (Bld) [#/Vol] 10.33 10*3/uL 3.70 - 11.00 k/uL [facility] XR Lumbar spine 3 Viewson IMPRESSION: 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 Office Technology Instructor: PSCB Transcribe Date/Time: Mar 13 2020 8:34A Dictated by : GABRIELLE BENTLEY MD This examination was interpreted and the report reviewed and electronically signed by: GABRIELLE BENTLEY MD on Mar 13 2020 8:35AM [facility] DIVISION OF RADIOLOGY * * *Final [...] spine are presented. FINDINGS: There are five cji-zig-ktqshqx lumbar vertebrae. No fracture or subluxations are noted. L5-S1 disc space narrowing is demonstrated. There is significant osteophyte formation. Kissing spine seen on lateral view. DIVISION OF RADIOLOGY Provider, Richie estevez Drake - 03/13/2020 * * *Final Report* * [...] spine are presented. FINDINGS: There are five tsr-ltd-codfmfk lumbar vertebrae. No fracture or subluxations are noted. L5-S1 disc space narrowing is demonstrated. There is significant osteophyte formation. Kissing spine seen on lateral view. 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 Office Technology Instructor: EDUAR Transcribe Date/Time: Mar 13 2020 8:34A Dictated by : GABRIELLE BENTLEY MD This examination was interpreted and the report reviewed and electronically signed by: GABRIELLE BENTLEY MD on Mar 13 2020 8:35AM EST [facility] XR Lumbar spine 3 ViewsOrder ed By: Ccf Provider on 03-13-2020 [facility] XR Lumbar spine 3 Viewson Radiology Study observation (narrative) [facility] PROGRESSon 06-09-2017 PROGRESS HNO ID: [id number] Author: Vesta Marin PSR Service: (none) Author Type: (none) Type: Progress Notes Filed: 06/09/2017 4:13 PM Note Text: Spoke with the patient and scheduled his Corotid Doppler on June 24, 2017 at 9:[address] [facility] CNOVon 06-02-2017 CNOV Office Visit (AGCARDWST) -------ROBY FLORES ([id number]) 1935 MDate Time Provider Department06/02/17 9:00 AM [...] weeks.He will be getting labs from the [facility] in the near future and I've askedfor a copy.INR has been within range. He is due today.I will see him in 8 months or as needed. If there is increased chest pain orrecurrent syncope, he has been advised to contact me.Written and verbal health teaching given to patient, patient verbalizesunderstanding and agrees with treatment plan.This note was generated using BandPage voice recognition system, and there may besome [...] There is no significantchange.Electronic ally Signed:Darrell Oliveira [facility] 2017 9:15 [facility] [address]: Carmen Vasquez MD 06/02/2017 9:21 AM AddendumDecrease [...] family physician about programs in your area.Vesta Henao Sofiyaazeb PSR 06/09/2017 4:13 PM SignedSpoke with the patient and scheduled his Corotid Doppler on June 24, 2017 at9:00 amReferring Provider: DARRELL OLIVEIRA [[id number]]Allergies As of Date: 06/02/2017(No Known Allergies)Date Reviewed: 06/02/2017Reviewed by: Russell Breaux) Anabella - Fully AssessedReason for Visit: Recheck [92]Primary Visit Diagnosis:ASHD (arteriosclerotic heart disease) [I25.10] Other Visit Diagnosis:PAF (paroxysmal atrial fibrillation) (HCC) [I48.0]Order(s):ECG B/O W INTERP (MED OFFICE) [ECG06] Order #: [id number] Fosinopril Sodium 40 mg tabletTake 1/2 tablet [...] FOR* 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 EAT A WHOLE FOOD, PLANT BASED [...] on file. Cosign accepted by STAS MORA MD[[id number]] on 09/30/2016 2:01 PM Fosinopril Sodium 40 [...] on file.Follow-up and Disposition History RecordedEncounter Number: [id number] Status:Closed by DARRELL OLIVEIRA MD on 06/02/17 [facility] PROGRESSon 06-02-2017 PROGRESS HNO ID: [id number] thor: Darrell Stahl: (none)Author Type: PhysicianType: Progress [...] weeks.He will be getting labs from the [facility] in the near future and I'veasked for a copy.INR has been within range. He is due today.I will see him in 8 months or as needed. If there is increased chest painor recurrent syncope, he has been advised to contact me.Written and verbal health teaching given to patient, patient verbalizesunderstanding and agrees with treatment plan.This note was generated using BandPage voice recognition system, and theremay be some [...] ectopics. 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] INVALID FOR* custodial current use of anticoagulant [Z79.01]INVALID FOR* Paroxysmal [...] Status:Closed by ELANA HOOD MA on 03/02/17 [facility] OBSOLETEon 01-23-2017 OBSOLETE Refill (AGCARDWST) -------[facility] FL[facility] ([id number]) 1935 [facility] Eztjomcqot75/3/17 DARRELL OLIVEIRA AGCARDWST During your visit today, we recorded the following information about you:Dao Bishop RN, RN 01/23/2017 3:15 PM SignedPatient phones requesting refills as follows:Pending Prescriptions Disp Refills WARFARIN 2.5 MG TABLET 45 tablet 11 Sig: Take 1 tablet by mouth daily as directed. Currently taking cycle xg7ru-5.5mg-2.5mg repeat MESFIN: No Please review and advise.Mahesh Carpenter has been identified by name and date of : YesRX INSTRUCTIONS:Patient aware RX will be sent to pharmacy. 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 Vital Signs Date Time Vital Sign Value Performing Clinician Facility 01-06-2025 09:34-0400 Body height 182.[address] Stas Mora MD Work Phone: 7(019)769-181842 [place] [address] 09-06-2024 14:15-0400 Body temperature 98 [degF] Dr. Stas Mora MD Work Phone: 8(468)203-642376 [place] [address] 09-06-2024 14:15-0400 Diastolic blood pressure 88 mm[Hg] Dr. Stas Mora MD Work Phone: 7(134)442-193676 [place] [address] 09-06-2024 14:15-0400 Heart rate 78 /min Dr. Stas Mora MD Work Phone: 5(159)611-157376 [place] [address] 09-06-2024 14:15-0400 Respiratory rate 18 /min Dr. Stas Mora MD Work Phone: 9(560)532-952476 [place] [address] 09-06-2024 14:15-0400 SaO2% (BldA) [Mass fraction] 97 % Dr. Stas Mora MD Work Phone: 8(184)885-190476 [place] [address] 09-06-2024 14:15-0400 Systolic blood pressure 137 mm[Hg] Dr. Stas Mora MD Work Phone: 7(577)529-684842 [place] [address] 09-04-2024 12:05-0400 Inhaled oxygen flow rate 2 L/min Dr. Stas Mora MD Work Phone: 6(370)990-656476 [place] [address] 09-01-2024 11:52-0400 Body height 182.[address] Stas Mora MD Work Phone: 5(100)461-788476 [place] [address] 09-01-2024 11:52-0400 Body mass index (BMI) [Ratio] 21.6 kg/m2 Dr. Stas Mora MD Work Phone: 0(454)209-653076 [place] [address] 09-01-2024 11:52-0400 Body weight 72.[address] Stas Mora MD Work Phone: 1(941)958-818276 [place] [address] 09-01-2024 11:00-0400 Diastolic blood pressure 79 mm[Hg] Dr. Stas Mora MD Work Phone: 9(652)798-480776 [place] [address] 09-01-2024 11:00-0400 Heart rate 70 /min Dr. Stas Mora MD Work Phone: 9(577)082-760876 [place] [address] 09-01-2024 11:00-0400 Respiratory rate 18 /min Dr. Stas Mora MD Work Phone: 9(798)684-666976 [place] [address] 09-01-2024 11:00-0400 SaO2% (BldA) [Mass fraction] 98 % Dr. Stas Mora MD Work Phone: 3(014)558-896376 [place] [address] 09-01-2024 11:00-0400 Systolic blood pressure 180 mm[Hg] Dr. Stas Mora MD Work Phone: 3(119)939-335076 [place] [address] 09-01-2024 09:52-0400 Body temperature 98.9 [degF] Dr. Stas Mora MD Work Phone: 9(620)104-044076 [place] [address] 09-01-2024 07:31-0400 Body height 182.[address] Stas Mora MD Work Phone: 7(120)876-289376 [place] [address] 09-01-2024 07:31-0400 Body mass index (BMI) [Ratio] 23.4 kg/m2 Dr. Stas Mora MD Work Phone: 3(402)922-629076 [place] [address] 09-01-2024 07:31-0400 Body weight 78.[address] Stas Mora MD Work Phone: 1(566)165-865076 [place] [address] 08-31-2024 11:05-0400 Body mass index (BMI) [Ratio] 22.35 kg/m2 Luciana Cisneros MD Work Phone: [facility] 08-31-2024 11:05-0400 Body weight 73.94 kg Luciana Cisneros MD Work Phone: [facility] 08-31-2024 11:05-0400 Diastolic blood pressure 74 mm[Hg] Luciana Cisneros MD Work Phone: [facility] 08-31-2024 11:05-0400 Heart rate 74 /min Luciana Cisneros MD Work Phone: [facility] 08-31-2024 11:05-0400 Respiratory rate 12 /min Luciana Cisneros MD Work Phone: [facility] 08-31-2024 11:05-0400 SaO2% (BldA) [Mass fraction] 98 % Luciana Cisneros MD Work Phone: [facility] 08-31-2024 11:05-0400 Systolic blood pressure 124 mm[Hg] Luciana Cisneros MD Work Phone: [facility] 07-28-2024 11:12-0400 Diastolic blood pressure 78 mm[Hg] Stas Mora MD Work Phone: [facility] 07-28-2024 11:12-0400 Systolic blood pressure 136 mm[Hg] Stas Mora MD Work Phone: [facility] 07-28-2024 11:10-0400 Body mass index (BMI) [Ratio] 22.4 kg/m2 Stas Mora MD Work Phone: [facility] 07-28-2024 11:10-0400 Body weight 74.1 kg Stas Mora MD Work Phone: [facility] 07-28-2024 11:10-0400 Heart rate 56 /min Stas Mora MD Work Phone: [facility] 07-28-2024 11:10-0400 Respiratory rate 16 /min Stas Mora MD Work Phone: [facility] 06-01-2024 14:52-0400 Body height 181.9 cm Luciana Cisneros MD Work Phone: [facility] 06-01-2024 14:52-0400 Body mass index (BMI) [Ratio] 22.33 kg/m2 Luciana Cisneros MD Work Phone: [facility] 06-01-2024 14:52-0400 Body weight 73.85 kg Luciana Cisneros MD Work Phone: [facility] 06-01-2024 14:52-0400 Diastolic blood pressure 60 mm[Hg] Luciana Cisneros MD Work Phone: [facility] 06-01-2024 14:52-0400 Heart rate 46 /min Luciana Cisneros MD Work Phone: [facility] 06-01-2024 14:52-0400 SaO2% (BldA) [Mass fraction] 98 % Luciana Cisneros MD Work Phone: [facility] 06-01-2024 14:52-0400 Systolic blood pressure 132 mm[Hg] Luciana Cisneros MD Work Phone: [facility] 05-26-2024 09:18-0500 Diastolic blood pressure 82 mm[Hg] Stas Mora MD Work Phone: [facility] 05-26-2024 09:18-0500 Systolic blood pressure 144 mm[Hg] Stas Mora MD Work Phone: [facility] 05-26-2024 09:06-0500 Body mass index (BMI) [Ratio] 22.19 kg/m2 Stas Mora MD Work Phone: [facility] 05-26-2024 09:06-0500 Body weight 73.5 kg Stas Mora MD Work Phone: [facility] 05-26-2024 09:06-0500 Heart rate 56 /min Stas Mora MD Work Phone: [facility] 05-26-2024 09:06-0500 Respiratory rate 18 /min Stas Mora MD Work Phone: [facility] 04-27-2024 09:34-0500 Body height 182 cm Luciana Cisneros MD Work Phone: [facility] 04-27-2024 09:34-0500 Body mass index (BMI) [Ratio] 22.51 kg/m2 Luciana Cisneros MD Work Phone: [facility] 04-27-2024 09:34-0500 Body weight 74.57 kg Luciana Cisneros MD Work Phone: [facility] 04-27-2024 09:34-0500 Diastolic blood pressure 62 mm[Hg] Luciana Cisneros MD Work Phone: [facility] 04-27-2024 09:34-0500 Heart rate 60 /min Luciana Cisneros MD Work Phone: [facility] 04-27-2024 09:34-0500 SaO2% (BldA) [Mass fraction] 98 % Luciana Cisneros MD Work Phone: [facility] 04-27-2024 09:34-0500 Systolic blood pressure 110 mm[Hg] Luciana Cisneros MD Work Phone: [facility] 11-26-2023 10:33-0400 Diastolic blood pressure 80 mm[Hg] Stas Mora MD Work Phone: [facility] 11-26-2023 10:33-0400 Systolic blood pressure 144 mm[Hg] Stas Mora MD Work Phone: [facility] 11-26-2023 10:22-0400 Body mass index (BMI) [Ratio] 21.95 kg/m2 Stas Mora MD Work Phone: [facility] 11-26-2023 10:22-0400 Body weight 71.4 kg Stas Mora MD Work Phone: [facility] 11-26-2023 10:22-0400 Heart rate 60 /min Stas Mora MD Work Phone: [facility] 11-26-2023 10:22-0400 Respiratory rate 18 /min Stas Mora MD Work Phone: [facility] 09-15-2023 08:38-0400 Body mass index (BMI) [Ratio] 24.52 kg/m2 Stas Mora MD Work Phone: [facility] 09-15-2023 08:38-0400 Body weight 79.74 kg Stas Mora MD Work Phone: [facility] 09-15-2023 08:38-0400 Diastolic blood pressure 84 mm[Hg] Stas Mora MD Work Phone: [facility] 09-15-2023 08:38-0400 Heart rate 76 /min Stas Mora MD Work Phone: [facility] 09-15-2023 08:38-0400 Respiratory rate 18 /min Stas Mora MD Work Phone: [facility] 09-15-2023 08:38-0400 Systolic blood pressure 138 mm[Hg] Stas Mora MD Work Phone: [facility] 08-14-2023 09:57-0400 Body mass index (BMI) [Ratio] 22.59 kg/m2 Stas Mora MD Work Phone: [facility] 08-14-2023 09:57-0400 Body weight 73.48 kg Stas Mora MD Work Phone: [facility] 08-14-2023 09:57-0400 Diastolic blood pressure 80 mm[Hg] Stas Mora MD Work Phone: [facility] 08-14-2023 09:57-0400 Heart rate 64 /min Stas Mora MD Work Phone: [facility] 08-14-2023 09:57-0400 Respiratory rate 14 /min Stas Mora MD Work Phone: [facility] 08-14-2023 09:57-0400 Systolic blood pressure 140 mm[Hg] Stas Mora MD Work Phone: [facility] 06-01-2023 15:08-0400 Body weight 75.75 kg Stas Mora MD Work Phone: [facility] 06-01-2023 15:08-0400 Diastolic blood pressure 90 mm[Hg] Stas Mora MD Work Phone: [facility] 06-01-2023 15:08-0400 Heart rate 82 /min Stas Mora MD Work Phone: [facility] 06-01-2023 15:08-0400 Respiratory rate 16 /min Stas Mora MD Work Phone: [facility] 06-01-2023 15:08-0400 SaO2% (BldA) [Mass fraction] 100 % Stas Mora MD Work Phone: [facility] 06-01-2023 15:08-0400 Systolic blood pressure 140 mm[Hg] Stas Mora MD Work Phone: [facility] 02-16-2023 13:57-0500 Diastolic blood pressure 62 mm[Hg] Stas Mora MD Work Phone: [facility] 02-16-2023 13:57-0500 Heart rate 62 /min Stas Mora MD Work Phone: [facility] 02-16-2023 13:57-0500 Respiratory rate 16 /min Stas Mora MD Work Phone: [facility] 02-16-2023 13:57-0500 Systolic blood pressure 110 mm[Hg] Stas Mora MD Work Phone: [facility] 02-10-2023 16:59-0500 Diastolic blood pressure 68 mm[Hg] [facility] 02-10-2023 16:59-0500 Heart rate 79 /min [facility] 02-10-2023 16:59-0500 Respiratory rate 12 /min [facility] 02-10-2023 16:59-0500 SaO2% (BldA) [Mass fraction] 98 % [facility] 02-10-2023 16:59-0500 Systolic blood pressure 153 mm[Hg] [facility] 02-10-2023 14:37-0500 Body mass index (BMI) [Ratio] 22.1 kg/m2 [facility] 02-10-2023 14:37-0500 Body weight 74.3 kg [facility] 02-10-2023 14:32-0500 Body height 182.88 cm [facility] 02-10-2023 14:32-0500 Body temperature 98 [degF] [facility] 11-17-2022 17:22-0400 Diastolic Blood Pressure Non-Invasive 68 1 STERLING FROMMELT DO [facility] 11-17-2022 17:22-0400 Heart rate 76 /min STERLING FROMMELT DO [facility] 11-17-2022 17:22-0400 Respiratory rate 18 /min STERLING DAIGLET DO [facility] 11-17-2022 17:22-0400 Systolic Blood Pressure Non-Invasive 126 1 STERLING DAIGLET DO [facility] 11-17-2022 15:23-0400 Body height 185.4 cm STERLING DAIGLET DO [facility] 11-17-2022 15:23-0400 Body temperature 97.88 [degF] STERLING DAIGLET DO [facility] 11-17-2022 15:23-0400 Body weight 79.6 kg STERLING DAIGLET DO [facility] 11-17-2022 15:23-0400 Diastolic Blood Pressure Non-Invasive 70 1 STERLING DAIGLET DO [facility] 11-17-2022 15:23-0400 Heart rate 89 /min STERLING DAIGLET DO [facility] 11-17-2022 15:23-0400 Respiratory rate 18 /min STERLING DAIGLET DO [facility] 11-17-2022 15:23-0400 Systolic Blood Pressure Non-Invasive 134 1 STERLING CISNEROSMELT DO [facility] 08-26-2022 13:12-0400 Body height 180.3 cm Stas Mora MD Work Phone: [facility] 08-26-2022 13:12-0400 Body weight 78.74 kg Stas Mora MD Work Phone: [facility] 08-26-2022 13:12-0400 Diastolic blood pressure 74 mm[Hg] Stas Mora MD Work Phone: [facility] 08-26-2022 13:12-0400 Heart rate 66 /min Stas Mora MD Work Phone: [facility] 08-26-2022 13:12-0400 Respiratory rate 16 /min Stas Mora MD Work Phone: [facility] 08-26-2022 13:12-0400 Systolic blood pressure 122 mm[Hg] Stas Mora MD Work Phone: [facility] 12-26-2021 11:22-0400 Body weight 78.56 kg Stas Mora MD Work Phone: [facility] 12-26-2021 11:22-0400 Diastolic blood pressure 80 mm[Hg] Stas Mora MD Work Phone: [facility] 12-26-2021 11:22-0400 Heart rate 58 /min Stas Mora MD Work Phone: [facility] 12-26-2021 11:22-0400 Respiratory rate 16 /min Stas Mora MD Work Phone: [facility] 12-26-2021 11:22-0400 Systolic blood pressure 142 mm[Hg] Stas Mora MD Work Phone: [facility] 12-22-2021 11:13-0400 Body temperature 97.6 [degF] Dr. Stas Mora Work Phone: [facility] Work Phone: 12-22-2021 11:13-0400 Diastolic blood pressure 58 mm[Hg] Dr. Stas Mora Work Phone: [facility] Work Phone: 12-22-2021 11:13-0400 Heart rate 63 /min Dr. Stas Mora Work Phone: [facility] Work Phone: 12-22-2021 11:13-0400 Respiratory rate 16 /min Dr. Stas Mora Work Phone: [facility] Work Phone: 12-22-2021 11:13-0400 SaO2% (BldA) [Mass fraction] 96 % Dr. Stas Mora Work Phone: [facility] Work Phone: 12-22-2021 11:13-0400 Systolic blood pressure 142 mm[Hg] Dr. Stas Moar Work Phone: [facility] Work Phone: 12-21-2021 20:06-0400 Body height 182.[address] Stas Mora Work Phone: [facility] Work Phone: 12-21-2021 20:06-0400 Body mass index (BMI) [Ratio] 22.6 kg/m2 Dr. Stas Mora Work Phone: [facility] Work Phone: 12-21-2021 20:06-0400 Body weight 75.[address] Stas Mora Work Phone: [facility] Work Phone: 12-21-2021 19:15-0400 Diastolic blood pressure 81 mm[Hg] [facility] Work Phone: 12-21-2021 19:15-0400 Heart rate 70 /min [facility] Work Phone: 12-21-2021 19:15-0400 Respiratory rate 18 /min [facility] Work Phone: 12-21-2021 19:15-0400 SaO2% (BldA) [Mass fraction] 96 % [facility] Work Phone: 12-21-2021 19:15-0400 Systolic blood pressure 171 mm[Hg] [facility] Work Phone: 12-21-2021 19:02-0400 Body temperature 97.6 [degF] [facility] Work Phone: 12-21-2021 18:17-0400 Body height 182.88 cm [facility] Work Phone: 12-21-2021 18:17-0400 Body mass index (BMI) [Ratio] 24.2 kg/m2 [facility] Work Phone: 12-21-2021 18:17-0400 Body weight 80.9 kg [facility] Work Phone: 09-05-2021 11:21-0400 Body height 182.9 cm Stas Mora MD Work Phone: [facility] 09-05-2021 11:21-0400 Body weight 80.2 kg Stas Mora MD Work Phone: [facility] 09-05-2021 11:21-0400 Diastolic blood pressure 70 mm[Hg] Stas Mora MD Work Phone: [facility] 09-05-2021 11:21-0400 Heart rate 62 /min Stas Mora MD Work Phone: [facility] 09-05-2021 11:21-0400 Respiratory rate 16 /min Stas Mora MD Work Phone: [facility] 09-05-2021 11:21-0400 Systolic blood pressure 136 mm[Hg] Stas Mora MD Work Phone: [facility] 07-08-2021 10:41-0400 Body weight 83.55 kg Stas Mora MD Work Phone: [facility] 07-08-2021 10:41-0400 Diastolic blood pressure 78 mm[Hg] Stas Mora MD Work Phone: [facility] 07-08-2021 10:41-0400 Heart rate 60 /min Stas Mora MD Work Phone: [facility] 07-08-2021 10:41-0400 Respiratory rate 16 /min Stas Mora MD Work Phone: [facility] 07-08-2021 10:41-0400 Systolic blood pressure 120 mm[Hg] Stas Mora MD Work Phone: [facility] Encounters Encounter Date Encounter Type Care Provider Facility Start: 01-10-2025 ambulatory Stas Frankel y:[facility] Start: 12-21-2024 Registered Referred Shayy Berrios Start: 12-21-2024 End: 12-21-2024 ambulatory Efbaldomero Curtis OLS Facility:[facility] Start: 12-14-2024 Registered Referred Shayy Berrios Start: 12-14-2024 End: 12-14-2024 ambulatory Efewtimmy Curtis OLS Facility:[facility] Start: 11-30-2024 Registered Referred Shayy Berrios Start: 11-29-2024 End: 11-30-[address] Stas Mora MD Work Phone: [facility] Start: 11-29-2024 End: 11-29-[address] Shayy Curtis MD -[facility] Work Phone: Start: 11-25-2024 Registered Referred Shayy Berrios Start: 11-24-2024 End: 11-25-[address] Stas Mora MD Work Phone: [facility] Start: 11-24-2024 End: 11-24-2024 Patient encounter procedure Halina HO -[facility] Work Phone: Start: 11-23-2024 ambulatory Stas Frankel y:[facility] Start: 11-23-2024 Registered Referred Shayy OlguinAlyssa Start: 11-02-2024 ambulatory Shayy GAMA Fa cility:[facility] Start: 11-02-2024 [facility] [place] Start: 10-31-2024 ambulatory Shayy Curtis OLS Fa cility:[facility] Start: 10-31-2024 [facility] [place] Start: 10-25-2024 End: 10-25-[address] Stas Mora MD Work Phone: [facility] Start: 10-25-2024 End: 10-25-[address] Shayy Curtis MD -[facility] Work Phone: Start: 10-20-2024 End: 10-20-[address] Stas Mora MD Work Phone: [facility] Start: 10-20-2024 End: 10-20-2024 Patient encounter procedure Halina HO -[facility] Work Phone: Start: 10-06-2024 ambulatory Shayy GAMA Fa cility:[facility] Start: 10-06-2024 [facility] Start: 10-05-2024 ambulatory Stas Frankel y:[facility] Start: 10-05-2024 [facility] [place] Start: 09-30-2024 End: 09-30-[address] Stas Mora MD Work Phone: [facility] Start: 09-30-2024 End: 09-30-2024 Patient encounter procedure Halina HO -[facility] Work Phone: Start: 09-29-2024 ambulatory Shayy GAMA Fa cility:[facility] Start: 09-29-2024 Registered Referred Shayy MaloneyWHL Amara Cardozo Start: 09-28-2024 End: 09-28-[address] Stas Mora MD Work Phone: [facility] Start: 09-28-2024 End: 09-28-2024 Departed Referred Shayy Cardozo Start: 09-28-2024 Registered Referred Shayy Cardozo Start: 09-28-2024 End: 09-28-2024 ambulatory Efewongbe Oleghe OLS Facility:[facility] Start: 09-26-2024 End: 09-26-[address] Stas Mora MD Work Phone: [facility] Start: 09-26-2024 End: 09-26-2024 Departed Referred Shayy Cardozo Start: 09-26-2024 Registered Referred Shayy Cardozo Start: 09-26-2024 End: 09-26-2024 ambulatory Efewongbe Oletomye OLS Facility:[facility] Start: 09-23-2024 ambulatory Efewongbe Gabee OLS Fa cility:[facility] Start: 09-23-2024 Registered Referred Shayy Cardozo Start: 09-21-2024 End: 09-22-2024 Telephone encounter Stas Mora MD Work Phone: [facility] Start: 09-21-2024 ambulatory Efewongbe Oleghe OLS Fa cility:[facility] Start: 09-21-2024 Registered Referred Shayy Cardozo Start: 09-20-2024 End: 09-20-[address] Stas Mora MD Work Phone: [facility] Start: 09-20-2024 End: 09-20-[address] Shayy Curtis MD -[facility] Work Phone: Start: 09-19-2024 ambulatory Efewongbe Oleghe OLS Fa cility:[facility] Start: 09-19-2024 Registered Referred Shayy Cardozo Start: 09-15-2024 ambulatory Efbaldomero Curtis OLS Fa cility:[facility] Start: 09-15-2024 Registered Referred Shayy Cardozo Start: 09-14-2024 ambulatory Efewtimmy Curtis OLS Fa cility:[facility] Start: 09-14-2024 Registered Referred Shayy Cardozo Start: 09-12-2024 ambulatory Efbaldomero Curtis OLS Fa cility:[facility] Start: 09-12-2024 Registered Referred Shayy Cardozo Start: 09-08-2024 End: 09-08-2024 Patient encounter procedure Halina Carmona [facility] Work Phone: Start: 09-08-2024 End: 09-08-[address] Stas Mora MD Work Phone: [facility] Start: 09-08-2024 Registered Referred Shayy Cardozo Start: 09-07-2024 End: 09-07-2024 Patient encounter procedure Halina Carmona [facility] Work Phone: Start: 09-07-2024 End: 09-07-[address] Stas Mora MD Work Phone: [facility] Start: 09-07-2024 Registered Referred Shayy Cardozo Start: 09-06-2024 Non-patient / Non-visit Dr. Navid Dominguez MD -[facility] Work Phone: Start: 09-05-2024 Non-patient / Non-visit Dr. Navid Dominguez MD -[facility] Work Phone: Start: 09-04-2024 Non-patient / Non-visit Dr. Jia Wells MD -[facility] Work Phone: Start: 09-03-2024 Non-patient / Non-visit Dr. Jia Wells MD -[facility] Work Phone: Start: 09-02-2024 Non-patient / Non-visit Dr. Jia Wells MD -[facility] Work Phone: Start: 09-02-2024 ambulatory Stas Mora Facilit y:[facility] Start: 09-02-2024 End: 09-06-2024 Evaluation and management of inpatient Dr. Navid Dominguez MD -[facility] Work Phone: Start: 09-01-2024 End: 09-01-2024 Telephone encounter Russell Aguayo [facility] Work Phone: [facility] Comment on above: Medication Problem ( Cost) Start: 09-01-2024 ambulatory Stas Frankel y:[facility] Start: 09-01-2024 Evaluation and management of inpatient Dr. Kathy Wells MD -[facility] Work Phone: Start: 09-01-2024 Non-patient / Non-visit Dr. Jia Wells MD -[facility] Work Phone: Start: 09-01-[address] Stas Mora MD Work Phone: [facility] Work Phone: Start: 08-31-2024 End: 08-31-2024 Telephone encounter Coretta Jalloh [facility] Ambulatory Telemanagement Comment on above: [...] behavioral disorders Start: 08-31-2024 End: 08-31-2024 ambulatory STAS Trejo [facility] Facility:[facility] Start: 08-03-2024 End: 08-03-2024 Telephone encounter Coretta Jalloh [facility] Ambulatory Tele[facility] Comment on above: Anticoagulation Tele phone Fu (Lab INR result) Start: 08-03-2024 End: 08-03-2024 ambulatory [facility] Facility:[facility] Start: 07-28-2024 End: 07-28-2024 Office outpatient visit 15 minutes Stas Mora MD Work Phone: [facility] [place] Comment on above: Bursitis of right el bow, unspecified bursa (Primary Dx) Start: 07-28-2024 End: 07-28-2024 [facility] Start: 07-06-2024 End: 07-06-2024 Telephone encounter Coretta Jalloh [facility] Ambulatory [facility] Comment on above: Anticoagulation Tele phone Fu (Lab INR result ) Start: 07-06-2024 End: 07-06-2024 ambulatory [facility] Facility:[facility] Start: 06-29-2024 End: 06-29-2024 Telephone encounter Coretta Jalloh [facility] Ambulatory [facility] Comment on above: Anticoagulation Tele phone Fu (Lab INR result ) Start: 06-29-2024 End: 06-29-2024 [facility] Start: 06-01-2024 End: 06-01-2024 Office consultation new/estab patient 80 min Luciana Cisneros MD Work Phone: Geriatrics Comment on above: Mixed dementia (HCC) (Primary Dx); Vascular parkinsonism (HCC) Start: 06-01-2024 End: 06-01-2024 [facility] Start: 06-01-2024 End: 08-01-2024 Follow-up encounter Luciana Cisneros MD Work Phone: [facility] Start: 05-26-2024 End: 05-26-2024 Telephone encounter Luciana Cisneros MD Work Phone: [facility] Comment on above: Appointment (Resched ule for geriatric f/u) Start: 05-26-2024 End: 05-26-2024 ambulatory STAS MORA Facility:[facility] Start: 05-26-2024 End: 05-26-2024 Patient encounter procedure Stas Mora MD Work Phone: [facility] [place] Comment on above: Essential hypertensi on, benign (Primary Dx); Hyperlipidemia, unspecified hyperlipidemia type; Atherosclerosis 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, unspecified vessel or lesion type, unspecified whether [place] or transplanted heart; Paroxysmal atrial fibrillation (HCC); Edema of both lower legs; History of stroke with residual effects; Dementia, unspecified dementia severity, unspecified dementia type, unspecified whether behavioral, psychotic, or mood disturbance or anxiety (HCC) Start: 05-25-2024 End: 05-25-2024 Telephone encounter Paige Hickman [facility] Ambulatory Telemanagement Comment on above: Anticoagulation Tele phone Fu (Lab INR Result ) Start: 05-25-2024 End: 05-25-2024 ambulatory STAS MORA Facility:[facility] Start: 05-23-2024 ambulatory LUCIANA CISNEROS Facility :[id number] Start: 05-23-2024 End: 05-23-2024 Subsequent hospital visit by physician [facility] 1 Work Phone: [facility] Comment on above: Cognitive impairment , mild, 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] Start: 04-28-2024 End: 04-29-2024 Telephone encounter Stas Mora MD Work Phone: [facility] [place] Comment on above: Results Start: 04-27-2024 End: 04-27-2024 Telephone encounter Coretta Jalloh [facility] Ambulatory Tele[facility] Comment on above: Anticoagulation Tele phone Fu (Lab INR result ) Start: 04-27-2024 End: 04-27-2024 ambulatory STAS MORA Facility:[facility] Start: 04-27-2024 End: 04-27-2024 Assmt & care planning pt w/cognitive impairment Luciana Cisneros MD Work Phone: Geriatrics Comment on above: Dementia, unspecifie d dementia severity, unspecified dementia type, unspecified whether behavioral, psychotic, or mood disturbance or anxiety (HCC) (Primary Dx); Cognitive impairment; Cognitive impairment, mild, so stated; Shuffling gait; Ambulatory dysfunction; Balance disorder Start: 04-27-2024 End: 04-27-2024 ambulatory STAS Maya [facility] Facility:[facility] Start: 04-25-2024 End: 04-25-2024 Telephone encounter Stas Mora MD Work Phone: [facility] Comment on above: memory issues Start: 04-13-2024 End: 04-13-2024 Telephone encounter Coretta Jalloh [facility] Ambulatory Telemanagement Comment on above: Anticoagulation Tele phone Fu (Home INR result ) Start: 04-13-2024 End: 04-13-2024 ambulatory STAS Trejo [facility] Facility:[facility] Start: 03-30-2024 End: 03-30-2024 Telephone encounter Coretta Jalloh [facility] Ambulatory Tele[facility] Comment on above: Anticoagulation Tele phone Fu (Lab INR result ) Start: 03-30-2024 End: 03-30-2024 ambulatory [facility] Facility:[facility] Start: 03-17-2024 End: 03-17-2024 Telephone encounter Josy Gandhi [facility] Comment on above: Anticoagulation Tele phone Fu (Lab INR result ) Start: 03-17-2024 End: 03-17-2024 [facility] Facility:[facility] Start: 03-03-2024 End: 03-03-2024 Telephone encounter Elise Paredes [facility] Ambulatory Tele[facility] Comment on above: Anticoagulation Tele phone Fu (Lab INR result) Start: 03-03-2024 End: 03-03-2024 ambulatory [facility] Facility:[facility] Start: 02-10-2024 End: 02-10-2024 Telephone encounter Coretta Jalloh [facility] Ambulatory Tele[facility] Comment on above: Anticoagulation Tele phone Fu (Lab INR result ) Start: 02-10-2024 End: 02-10-2024 ambulatory [facility] Facility:[facility] Start: 01-20-2024 End: 01-20-2024 Telephone encounter Coretta Jalloh [facility] Ambulatory Tele[facility] Comment on above: Anticoagulation Tele phone Fu (Lab INR results ) Start: 01-04-2024 End: 01-04-2024 Telephone encounter Stas Mora MD Work Phone: [facility] [place] Comment on above: Medication Request Start: 12-24-2023 End: 12-24-2023 Telephone encounter Elise Paredes [facility] Ambulatory Telemanagement Comment on above: Anticoagulation Tele phone Fu (Lab INR) Start: 12-10-2023 End: 12-10-2023 Telephone encounter Elise Paredes [facility] Ambulatory Telemanagement Comment on above: Anticoagulation Tele phone Fu (Lab INR) Start: 11-26-2023 End: 11-26-2023 Telephone encounter Elise Paredes [facility] Ambulatory Telemanagement Comment on above: Anticoagulation Tele phone Fu (Lab INR) Start: 11-26-2023 End: 11-26-2023 Patient encounter procedure Stas Mora MD Work Phone: [facility] [place] Comment on above: Essential hypertensi on, benign (Primary Dx); Hyperlipidemia, unspecified hyperlipidemia type; Edema of both lower legs; Paroxysmal atrial fibrillation (HCC); History of stroke with residual effects; 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, psychotic disturbance, mood disturbance, or anxiety (HCC); Urinary frequency; Abnormal CBC Start: 11-18-2023 End: 11-18-2023 Telephone encounter Coretta Jalloh [facility] Ambulatory Telemanagement Comment on above: Anticoagulation Tele phone Fu (Home INR) Start: 11-16-2023 End: 11-16-2023 Refill Stas Mora MD Work Phone: [facility] [place] Comment on above: Refill Request Start: 10-14-2023 Telephone encounter Coretta Jalloh [facility] Ambulatory Telemanagement Comment on above: Anticoagulation Tele phone Fu (Home INR results ) Start: 09-16-2023 Telephone encounter Colleen Sommer [facility] Ambulatory Telemanagement Comment on above: Anticoagulation Tele phone Fu Start: 09-15-2023 End: 09-15-2023 Patient encounter procedure Stas Mora MD Work Phone: [facility] [place] Comment on above: Edema of both lower legs (Primary Dx) Start: 09-14-2023 End: 09-14-2023 ambulatory Nurse Intm/Famp Triage [facility] Work Phone: Nurse Phone Triage Comment [...] INR) Start: 08-14-2023 End: 08-14-2023 Patient encounter mili Mora MD Work Phone: [facility] [place] Comment on above: Moderate vascular de mentia [...] ) Start: 07-29-2023 Telephone encounter Elena Lopez [facility] Comment on above: Anticoagulation Foll ow Up Start: 07-22-2023 Telephone encounter Coretta Jalloh [facility] Ambulatory Telemanagement Comment on above: Anticoagulation Tele phone Fu (Lab INR results ) Start: 07-16-2023 Refill Elvis RASHID RN.CUSTOMER ACQUISITION MANAGER Work Phone: [facility] [place] Comment on above: Refill Request Start: 07-15-2023 [...] Telephone encounter Jerzy Easton MD Work Phone: [facility] [place] Comment on above: Anticoagulation Start: 06-11-2023 Telephone encounter Stas miranda MD Work Phone: [facility] [place] Comment on above: Anticoagulation Start: 06-08-2023 Telephone encounter Jenna Armenta nhof PRINTING SCREEN ASSEMBLER.CUSTOMER ACQUISITION MANAGER Work Phone: [facility] [place] Comment on above: Erroneous encounter- disregard Anticoagulation Start: 06-05-2023 Telephone encounter Jenna Armenta nhof PRINTING SCREEN ASSEMBLER.CUSTOMER ACQUISITION MANAGER Work Phone: [facility] [place] Comment on above: Results (Labs, Criti cleopatra ) Start: 06-04-2023 ambulatory Hortencia Winston RN NURSE O N CALL Comment on above: Results, Lab High Protime and INR Start: 06-04-2023 E-mail encounter fro m caregiver Jasmin Bell MD Work Phone: [facility] [place] Start: 06-04-2023 Telephone encounter Jenna Armenta wvof PRINTING SCREEN ASSEMBLER.CUSTOMER ACQUISITION MANAGER Work Phone: [facility] [place] Comment on above: Results; Orders (Lab s ) Start: 06-03-2023 Telephone encounter Coretta Jalloh [facility] Ambulatory Telemanagement Comment on above: Anticoagulation Tele phone Fu (Lab INR results ) Start: 06-01-2023 End: 06-01-2023 Patient encounter procedure Stas Mora MD Work Phone: [facility] [place] Comment on above: Essential hypertensi on, benign (Primary Dx); Paroxysmal atrial fibrillation (HCC); Atherosclerosis 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, unspecified vessel or lesion type, unspecified whether [place] or transplanted heart; Hyperlipidemia, unspecified hyperlipidemia type; [...] results) Start: 05-13-2023 Telephone encounter Senia Alan [facility] Ambulatory Telemanagement Comment on above: Anticoagulation Tele phone Fu (INR Lab Result) Start: 05-06-2023 Telephone encounter Coretta Jalloh [facility] Ambulatory Telemanagement Comment on above: Anticoagulation Tele phone Fu (Lab INR results ) Start: 04-29-2023 Telephone encounter Coretta Jalloh [facility] Ambulatory Telemanagement Comment on above: Anticoagulation Tele phone Fu (Home INR results ) Start: 02-20-2023 Telephone encounter Elise Paredes [facility] Comment on above: Anticoagulation Tele phone Fu (Lab INR) Start: 02-17-2023 Telephone encounter Stas miranda MD Work Phone: [facility] Comment on above: Results Start: 02-17-2023 End: 02-17-2023 Subsequent hospital visit by physician Mri Radio [facility] (I-Stat/1.5t) Work Phone: Radiology Comment on above: Cerebral infarction, unspecified mechanism (HCC) [I63.9] Start: 02-16-2023 End: 02-16-2023 Patient encounter procedure Stas Mora MD Work Phone: [facility] Comment on above: Cerebral infarction, unspecified mechanism (HCC) (Primary Dx); Generalized weakness; Speech disturbance, unspecified type; Hyperlipidemia, unspecified hyperlipidemia type; Essential hypertension, benign; Paroxysmal atrial fibrillation (HCC) Start: 02-13-2023 Telephone encounter Elise Paredes [facility] Ambulatory Telemanagement Comment on above: Anticoagulation Tele phone Fu (Lab INR) Start: 02-10-2023 End: 02-10-2023 Emergency department patient visit [facility] Work Phone: Start: 02-06-2023 Telephone encounter Senia Cross [facility] Ambulatory Telemanagement Comment on above: Anticoagulation Tele phone Fu (INR Lab Result) Start: 01-19-2023 Telephone encounter Paige [facility] Ambulatory Telemanagement Comment on above: Anticoagulation Tele phone Fu Start: 01-16-2023 Orders Only Stas newman MD Work Phone: [facility] Comment on above: custodial current us e of anticoagulant (Primary Dx); [...] Emergency department patient visit STERLING LYNCH DO [facility] Start: 11-07-2022 Telephone encounter Senia Cross [...] result) Start: 09-12-2022 Telephone encounter Jeimy Duong [facility] Comment on above: Anticoagulation Tele phone Fu (Lab INR result) Start: 08-26-2022 End: 08-26-2022 Patient encounter procedure Stas Mora MD Work Phone: [facility] [place] Comment on above: Encounter for Medica [...] Result) Start: 07-04-2022 Telephone encounter Lety Gandara [facility] Comment on above: Anticoagulation Tele phone Fu (Lab INR result ) Start: 06-23-2022 Refill Elvis RASHID RN.CUSTOMER ACQUISITION MANAGER Work Phone: [facility] Comment on above: Refill Request Start: 06-20-2022 Telephone encounter Senia Cross [facility] Ambulatory Telemanagement Comment on above: Anticoagulation Tele phone Fu (INR Lab Result) Start: 06-06-2022 Telephone encounter Senia Cross [facility] Ambulatory Telemanagement Comment on above: Anticoagulation Tele phone Fu (INR Lab Result) Start: 05-30-2022 Telephone encounter Stas miranda MD Work Phone: [facility] Comment on above: Opened In Error Start: 05-22-2022 Telephone encounter Jenna Armenta franciscoof PRINTING SCREEN ASSEMBLER.CUSTOMER ACQUISITION MANAGER Work Phone: [facility] Comment on above: Results (X-ray hip) Start: 05-21-2022 End: 05-21-2022 Subsequent hospital visit by physician Jaymie [facility] [place] Work Phone: Radiology Comment on above: Left hip pain [M25.5 52] Start: 05-21-2022 ambulatory Fani Grace RN NURSE O N CALL Comment on above: Fall Fall; Hip Pain Start: 05-19-2022 Telephone encounter Stas miranda MD Work Phone: [facility] [place] Comment on above: Anticoagulation Start: 05-16-2022 Telephone encounter Senia Phillips [facility] Ambulatory Telemanagement Comment on above: Anticoagulation Tele phone Fu Start: 05-02-2022 Telephone encounter Senia Phillips [facility] Ambulatory Telemanagement Comment on above: Anticoagulation Tele phone Fu (INR Lab Result) Start: 04-18-2022 Telephone encounter Senia Phillips [facility] Ambulatory Telemanagement Comment on above: Anticoagulation Tele phone Fu (INR Lab Result) Start: 04-04-2022 Telephone encounter Elise Brady Mikecem [facility] Comment on above: Anticoagulation Tele phone Fu (Lab INR) Start: 03-31-2022 Telephone encounter Stas miranda MD Work Phone: [facility] [place] Comment on above: Release Of Medical R ecords ([place] PCP) Start: 03-21-2022 Telephone encounter Carmelinajustin Cruz [facility] Comment on above: Anticoagulation Tele phone Fu Start: 02-21-2022 Telephone encounter Kristian Ferguson MD Work Phone: [facility] [place] Comment on above: Anticoagulation Start: 02-10-2022 Telephone encounter Stas miranda MD Work Phone: [facility] Comment on above: Opened In Error Start: 01-27-2022 Telephone encounter Paige Hickman [facility] Ambulatory Telemanagement Comment on above: Anticoagulation Tele phone Fu (Lab INR Result) Start: 01-20-2022 Telephone encounter Paige Hickman [facility] Ambulatory Telemanagement Comment on above: Anticoagulation Tele phone Fu (Lab INR Result) Start: 01-17-2022 Telephone encounter Stas miranda MD Work Phone: [facility] [place] Comment on above: Anticoagulation; Cri tical Results (INR) Start: 01-13-2022 Refill Stas newman MD Work Phone: [facility] [place] Comment on above: Refill Request; Refi ll Request Start: 01-03-2022 Telephone encounter Senia Phillips [facility] Ambulatory Telemanagement Comment on above: Anticoagulation Tele phone Fu (INR Home Test Result) Start: 01-02-2022 Telephone encounter Stas miranda MD Work Phone: [facility] Comment on above: Results Start: 12-26-2021 End: 12-26-2021 Patient encounter procedure Stas Mora MD Work Phone: [facility] Comment on above: Hospital discharge f ollow-up (Primary Dx); Encounter for immunization; TIA (transient ischemic attack); Thyroid nodule; Essential hypertension, benign; Paroxysmal atrial fibrillation (HCC); Atherosclerosis 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, unspecified vessel or lesion type, unspecified whether [place] or transplanted heart Start: 12-22-2021 Non-patient / Non-visit Dr. Maria E Mora Work Phone: [facility] Start: 12-21-2021 Non-patient / Non-visit Dr. Maria E Mora Work Phone: [facility] Start: 12-21-2021 End: 12-22-2021 Evaluation and management of inpatient [facility] Start: 12-21-2021 End: 12-22-[address] Stas Mora Work Phone: [facility] Work Phone: Start: 12-20-2021 Telephone encounter Stas miranda MD Work Phone: [facility] Comment on above: Opened In Error Anticoagulation Tele phone Fu (INR Lab Result) Start: 12-06-2021 Telephone encounter Senia Phillips [facility] Ambulatory Telemanagement Comment on above: Anticoagulation Tele phone Fu (INR Lab Result) Start: 11-22-2021 Telephone encounter Janice Huang [facility] Ambulatory Telemanagement Comment on above: Anticoagulation Tele phone Fu (INR) Start: 11-08-2021 Telephone encounter Stas miranda MD Work Phone: [facility] Comment on above: Opened In Error Anticoagulation Tele phone Fu (INR Lab Result) Start: 10-25-2021 Telephone encounter Janice Huang [facility] Ambulatory Telemanagement Comment on above: Anticoagulation Tele phone Fu (lab INR ) Start: 09-27-2021 Telephone encounter Yomi Wills [facility] Ambulatory Telemanagement Comment on above: Anticoagulation Tele phone Fu (Lab INR Result) Start: 09-13-2021 Orders Only Stas newman MD Work Phone: [facility] [place] Comment on above: intermediate project manager current us e of anticoagulant (Primary Dx); Encounter for monitoring Coumadin therapy Anticoagulation Tele phone Fu (INR Lab Result) Start: 09-05-2021 End: 09-05-2021 Patient encounter procedure Stas Mora MD Work Phone: [facility] [place] Comment on above: Encounter for Medica re annual wellness exam (Primary Dx); Paroxysmal atrial fibrillation (HCC); Essential hypertension, benign Start: 08-30-2021 Telephone encounter Jenna Armenta nhof PRINTING SCREEN ASSEMBLER.CUSTOMER ACQUISITION MANAGER Work Phone: [facility] [place] Comment on above: Orders (INR ) Anticoagulation Tele phone Fu (INR Lab Result) Start: 08-16-2021 Orders Only Stas newman MD Work Phone: [facility] [place] Comment on above: Anticoagulation Start: 08-02-2021 Telephone encounter Senia Alan [facility] Ambulatory Telemanagement Comment on above: Anticoagulation Tele phone Fu (INR Lab Result) Start: 07-16-2021 Telephone encounter Stas miranda MD Work Phone: [facility] [place] Comment on above: Results Start: 07-13-2021 Refill Elvis RASHID RN.CUSTOMER ACQUISITION MANAGER Work Phone: [facility] [place] Comment on above: Refill Request Start: 07-08-2021 End: 07-08-2021 Patient encounter procedure Stas Mora MD Work Phone: [facility] [place] Comment on above: Essential hypertensi on, benign (Primary Dx); Atherosclerosis 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, unspecified vessel or lesion type, unspecified whether [place] or transplanted heart; Paroxysmal atrial fibrillation (HCC); Primary osteoarthritis of both knees Start: 07-03-2021 Telephone encounter Stas miranda MD Work Phone: [facility] [place] Comment on above: Anticoagulation Tele phone Fu (Lab INR result) Start: 06-12-2021 Telephone encounter Stas miranda MD Work Phone: [facility] [place] Comment on above: Anticoagulation (Lab INR result) Start: 03-12-2020 End: 03-12-2020 Subsequent hospital visit by physician Jaymie [facility] [place] Work Phone: Radiology Comment on above: Acute right-sided lo w back pain, unspecified whether sciatica present [M54.5] Start: 02-02-2018 Ambulatory DARRELL OLIVEIRA Facility :[facility] Start: 06-02-2017 End: 06-02-2017 Ambulatory DARRELL Radha [facility] Procedures Date Procedure Procedure [...] Adult depression scr eening assessment Coretta Jalloh [facility] Start: 02-17-2023 Mri brain brain stem w/o contrast material Stas Mora MD Work Phone: Start: 02-10-2023 Plain chest X-ray Start: 02-10-2023 SARS-CoV-2 & FLU Ant igen (Rapid) Start: 05-21-2022 Radex hip unilateral with pelvis 2-3 views Jenna Fitzpatrick APRN.CUSTOMER ACQUISITION MANAGER Work Phone: Start: 05-19-2022 PROTHROMBIN TIME/PT [facility] [...] Detail Author Start: 02-27-2031 Urine microalbumin profile [facility] Start: 05-26-2027 Diabetes Screening Diabetes Screenin [facility] Start: 06-02-2026 Diabetes Screening Diabetes Screenin [facility] Start: 08-15-2025 DIABETES SCREEN DIABETES SCREEN [facility] Start: 08-15-2025 Diabetes Screening Diabetes Screenin g [facility] Start: 05-25-2025 Hepatitis B surface antibody level LDL Cholesterol [facility] Start: 03-30-2025 End: 03-30-2025 Patient encounter procedure 03/30/2025 11:00 AM EST Office Visit Geriatrics [address] [place] [address] Luciana Cisneros MD [address] [place] [address] follow up 6 months Geriatrics Comment on above: follow up 6 months Start: 02-21-2025 DIABETES SCREEN DIABETES SCREEN [facility] Start: 01-10-2025 Registered Referred Registered Refer jenise ODELL [facility] Start: 12-06-2024 DIABETES SCREEN DIABETES SCREEN [facility] Start: 12-05-2024 End: 12-05-2024 Patient encounter procedure 12/05/2024 12:40 PM EDT Office Visit [facility] [address] [facility] [place] [id number] Stas Mora MD [address] [facility] [place] [address] reschedule from 12/01 [facility] Comment on above: reschedule from 12/01 Start: 12-01-2024 End: 12-01-2024 Patient encounter procedure 12/01/2024 9:40 AM EDT Office Visit [facility] [address] [place] [address] Stas Mora MD [address] [place] [address] 6 mo f/u [facility] Comment on above: 6 mo f/u Start: 11-26-2024 End: 02-25-2025 CBC W Auto Differential panel - Blood COMPLETE BLOOD COUNT AND DIFFERENTIAL Lab Routine Essential hypertension, benign Expected: 11/26/2024 (Approximate), Expires: 02/25/2025 [facility] Comment on above: Expected: 11/26/2024 (Approximate), Expires: 02/25/2025 Start: 11-26-2024 End: 02-25-2025 Comprehensive metabolic 2000 panel - Serum or Plasma COMPREHENSIVE METABOLIC PANEL Lab Routine Essential hypertension, benign Hyperlipidemia, unspecified hyperlipidemia type Expected: 11/26/2024 (Approximate), Expires: 02/25/2025 [facility] Work Phone: Comment on above: Expected: 11/26/2024 (Approximate), Expires: 02/25/2025 Start: 11-26-2024 End: 02-25-2025 Lipid 1996 panel - Serum or Plasma LIPID PANEL BASIC Lab Routine Essential hypertension, benign Hyperlipidemia, unspecified hyperlipidemia type Expected: 11/26/2024 (Approximate), Expires: 02/25/2025 [facility] Comment on above: Expected: 11/26/2024 (Approximate), Expires: 02/25/2025 Start: 11-25-2024 RSV Vaccine (1 - 1-d ose 60+ series) RSV Vaccine (1 - 1-dose 60+ series) [facility] Comment on above: Postponed from 08/12 (Declined at this time) Start: 11-25-2024 RSV Vaccine (1 - 1-d ose 75+ series) RSV Vaccine (1 - 1-dose 75+ series) [facility] Comment on above: Postponed from 08/12 (Declined at this time) Start: 11-23-2024 [facility] Start: 11-21-2024 Influenza vaccination Influenza Vacc ine (#1) [facility] Start: 09-06-2024 Patient discharge [facility] Start: 09-02-2024 Admission procedure [facility] Start: 09-01-2024 End: 09-02-2024 [facility] Start: 09-01-2024 Blood culture Blood Culture [facility] Start: 09-01-2024 Application of intermittent pneumatic compression device [facility] Start: 09-01-2024 Fall prevention [facility] Start: 09-01-2024 Oxygen therapy [facility] Start: 09-01-2024 Provision of activit y privileges [facility] Start: 09-01-2024 Assessment of risk o f venous thromboembolism [facility] Start: 09-01-2024 Insertion of cathete r into peripheral vein [facility] Start: 09-01-2024 Providing care accor ding to standard [facility] Start: 09-01-2024 Referral to occupati onal therapist [facility] Start: 09-01-2024 Referral to service [facility] Start: 09-01-2024 [facility] Start: 09-01-2024 Following clinical pathway protocol [facility] Start: 09-01-2024 Admission procedure [facility] Start: 09-01-2024 Hospital admission, emergency, from emergency room, medical nature [facility] Start: 08-31-2024 End: 08-31-2024 Patient encounter procedure 08/31/2024 11:00 AM EDT Office Visit Geriatrics [address] [place] [address] Luciana Cisneros MD [address] [facility] [place] [address] 3 month f/u Geriatrics Comment on above: 3 month f/u Start: 2024 Anxiety Screening Anxiety Screening [facility] Start: 2024 Depression Screening Depression Scre ening [facility] Start: 07-08-2024 DIABETES SCREEN DIABETES SCREEN [facility] Start: 06-02-2024 Hepatitis B surface antibody level LDL Cholesterol [facility] Start: 06-01-2024 End: 06-01-2024 Patient encounter procedure 06/01/2024 3:00 PM EDT Office Visit Geriatrics [address] [facility] [place] [address] Luciana Cisneros MD [address] [facility] [place] [address] Follow up visit for MRI Geriatrics Comment on above: Follow up visit for MRI Start: 06-01-2024 Covid-19 Vaccine ( season) Covid-19 Vaccine () [facility] Start: 05-30-2024 End: 05-30-2024 Patient encounter procedure 05/30/2024 11:20 AM EDT Office Visit Internal Medicine [place] [address] [place] [address] Luciana Cisnreos MD [address] [place] [address] Follow up visit for MRI [facility] [place] Comment on above: Follow up visit for MRI Start: 05-26-2024 End: 05-26-2024 Patient encounter procedure 05/26/2024 9:20 AM EST Office Visit Family [facility] [place] [address] [place] [address] Stas Mora MD [address] [place] [address] 6 mo f/u [facility] [place] Comment on above: 6 mo f/u Start: 05-25-2024 End: 08-24-2024 CBC W Auto Differential panel - Blood COMPLETE BLOOD COUNT AND DIFFERENTIAL Lab Routine Abnormal CBC Expected: 05/25/2024 (Approximate), Expires: 08/24/2024 [facility] Comment on above: Expected: 05/25/2024 (Approximate), Expires: 08/24/2024 Start: 05-25-2024 End: 08-24-2024 Comprehensive metabolic 2000 panel - Serum or Plasma COMPREHENSIVE METABOLIC PANEL Lab Routine Essential hypertension, benign Hyperlipidemia, unspecified hyperlipidemia type Expected: 05/25/2024 (Approximate), Expires: 08/24/2024 [facility] [employer] Work Phone: Comment on above: Expected: 05/25/2024 (Approximate), Expires: 08/24/2024 Start: 05-25-2024 End: 08-24-2024 Lipid 1996 panel - Serum or Plasma LIPID PANEL BASIC Lab Routine Essential hypertension, benign Hyperlipidemia, unspecified hyperlipidemia type Expected: 05/25/2024 (Approximate), Expires: 08/24/2024 [facility] Comment on above: Expected: 05/25/2024 (Approximate), Expires: 08/24/2024 Start: 05-25-2024 End: 05-25-2024 ambulatory 05/25/2024 8:30 AM EST Results Only [facility] [address] [place] [address] [facility] Start: 05-23-2024 End: 05-23-2024 Patient encounter procedure 05/23/2024 2:30 PM EST Appointment [facility] [address] [place] [address] Cognitive impairment, mild, 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] [facility] Comment on above: Cognitive impairment , mild, 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] Start: 04-29-2024 End: 04-29-2024 Patient encounter procedure 04/29/2024 3:40 PM EST Office Visit [facility] [place] [address] [place] [address] Stas Mora MD [address] [facility] [place], [place] [id number] memory issues,See TE [facility] [place] Comment on above: memory issues,See TE Start: 04-27-2024 End: 04-27-2024 Patient encounter procedure 04/27/2024 9:30 AM EST Office Visit Geriatrics [address] [facility] [place], [place] [id number] Luciana Cisneros MD [address] [facility] [place], [place] [address] Dementia, unspecified dementia severity, unspecified dementia type, unspecified whether behavioral, psychotic, or mood disturbance or anxiety (HCC) [F03.90] Geriatrics Comment on above: Dementia, unspecifie d dementia severity, unspecified dementia type, unspecified whether behavioral, psychotic, or mood disturbance or anxiety (HCC) [F03.90] Start: 03-23-2024 Advance Directive Discussion Advance Directive Discussion [facility] Start: 03-23-2024 Medicare Advantage A nnual Wellness Visit Medicare Advantage Annual Wellness Visit [facility] Start: 03-13-2024 DIABETES SCREEN DIABETES SCREEN [facility] Start: 11-26-2023 End: 11-26-2023 Patient encounter procedure [facility] Comment on above: 6 month follow up 6 month follow up, jessica bashir, on aricept x 3 months Start: 11-22-2023 Covid-19 Vaccine ( season) Covid-19 Vaccine ( season) [facility] Start: 11-22-2023 Influenza vaccination Influenza Vacc ine (#1) [facility] Start: 09-15-2023 End: 09-15-2023 Patient encounter procedure 09/15/2023 8:40 AM EDT Office Visit [facility] [address] [place] [address] Stas Mora MD [address] [place], [place] [id number] leg swelling- both legs--See triage 09/14/2023. [facility] [place] Comment on above: leg swelling- both l egs--See triage 09/14/2023. Start: 08-16-2023 Hepatitis B surface antibody level LDL CHOLESTEROL [facility] Start: 08-14-2023 End: 08-14-2023 Patient encounter procedure 08/14/2023 10:00 AM EDT Office Visit [facility] [address] [place] [address] Stas Mora MD [address] [place], [place] [id number] Memory Issues [facility] Comment on above: Memory Issues Start: 06-04-2023 End: 09-03-2023 Ferritin [Mass/volume] in Serum or Plasma [facility] Work Phone: Comment on above: Expected: 06/04/2023 , Expires: 09/03/2023 Start: 06-04-2023 End: 09-03-2023 Iron and Iron binding capacity panel - Serum or Plasma [facility] Work Phone: Comment on above: Expected: 06/04/2023 , Expires: 09/03/2023 Start: 06-01-2023 End: 08-31-2023 CBC panel - Blood by Automated count CBC Lab Routine Paroxysmal atrial fibrillation (HCC) Essential hypertension, benign Expected: 06/01/2023 (Approximate), Expires: 08/31/2023 [facility] Work Phone: Comment on above: Expected: 06/01/2023 (Approximate), Expires: 08/31/2023 Start: 06-01-2023 End: 08-31-2023 Comprehensive metabolic 2000 panel - Serum or Plasma COMP METABOLIC PANEL Lab Routine Paroxysmal atrial fibrillation (HCC) Essential hypertension, benign Hyperlipidemia, unspecified hyperlipidemia type Expected: 06/01/2023 (Approximate), Expires: 08/31/2023 [facility] Work Phone: Comment on above: Expected: 06/01/2023 (Approximate), Expires: 08/31/2023 Start: 06-01-2023 End: 08-31-2023 Lipid 1996 panel - Serum or Plasma LIPID PANEL BASIC Lab Routine Paroxysmal atrial fibrillation (HCC) Essential hypertension, benign Hyperlipidemia, unspecified hyperlipidemia type Expected: 06/01/2023 (Approximate), Expires: 08/31/2023 [facility] Work Phone: Comment on above: Expected: 06/01/2023 (Approximate), Expires: 08/31/2023 Start: 05-13-2023 Covid-19 Vaccine () Covid-19 Vaccine () [facility] Start: 03-23-2023 Advance Directive Discussion Advance Directive Discussion [facility] Start: 03-23-2023 Behavioral Health Screening Behavioral Health Screening [facility] Start: 03-23-2023 Depression Assessment Depression Ass essment [facility] Start: 02-21-2023 Hepatitis B surface antibody level LDL CHOLESTEROL [facility] Start: 02-10-2023 [facility] Start: 12-06-2022 Hepatitis B surface antibody level LDL CHOLESTEROL [facility] Start: 11-21-2022 Covid-19 Vaccine ( season) Covid-19 Vaccine () [facility] Start: 11-21-2022 Influenza vaccination [facility] Start: 09-05-2022 PNEUMOCOCCAL: 65+ (2 - PCV) PNEUMOCOCCAL: 65+ (2 - PCV) [facility] Comment on above: Postponed from 02/21 (Declined at this time) Start: 07-08-2022 Hepatitis B surface antibody level LDL CHOLESTEROL [facility] Start: 04-26-2022 COVID-19 VACCINE (6 - Pfizer series) COVID-19 VACCINE (6 - Pfizer series) [facility] Start: 03-23-2022 ADVANCE DIRECTIVE DISCUSSION ADVANCE DIRECTIVE DISCUSSION [facility] Start: 03-23-2022 DEPRESSION ASSESSMENT DEPRESSION ASS ESSMENT [facility] Start: 03-13-2022 Hepatitis B surface antibody level LDL CHOLESTEROL [facility] Start: 03-10-2022 End: 05-10-2022 CBC panel - Blood by Automated count CBC Lab Routine TIA (transient ischemic attack) Essential hypertension, benign Atherosclerosis 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, unspecified vessel or lesion type, unspecified whether [place] or transplanted heart Expected: 03/10/2022 (Approximate), Expires: 05/10/2022 [facility] Work Phone: Comment on above: Expected: 03/10/2022 (Approximate), Expires: 05/10/2022 Start: 03-10-2022 End: 05-10-2022 Comprehensive metabolic 2000 panel - Serum or Plasma COMP METABOLIC PANEL Lab Routine TIA (transient ischemic attack) Essential hypertension, benign Atherosclerosis 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, unspecified vessel or lesion type, unspecified whether [place] or transplanted heart Expected: 03/10/2022 (Approximate), Expires: 05/10/2022 [facility] Work Phone: Comment on above: Expected: 03/10/2022 (Approximate), Expires: 05/10/2022 Start: 03-10-2022 End: 05-10-2022 Lipid 1996 panel - Serum or Plasma LIPID PANEL BASIC Lab Routine TIA (transient ischemic attack) Essential hypertension, benign Atherosclerosis 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, unspecified vessel or lesion type, unspecified whether [place] or transplanted heart Expected: 03/10/2022 (Approximate), Expires: 05/10/2022 [facility] Work Phone: Comment on above: Expected: 03/10/2022 (Approximate), Expires: 05/10/2022 Start: 01-03-2022 End: 03-05-2022 Comprehensive metabolic 2000 panel - Serum or Plasma COMP METABOLIC PANEL Lab Routine Atherosclerosis 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, unspecified vessel or lesion type, unspecified whether [place] or transplanted heart Essential hypertension, benign Expected: 01/03/2022 (Approximate), Expires: 03/05/2022 [facility] Work Phone: Comment on above: Expected: 01/03/2022 (Approximate), Expires: 03/05/2022 Start: 01-03-2022 End: 03-05-2022 LIPID PANEL BASIC LIPID PANEL BASIC Lab Routine Atherosclerosis 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, unspecified vessel or lesion type, unspecified whether [place] or transplanted heart Essential hypertension, benign Expected: 01/03/2022 (Approximate), Expires: 03/05/2022 [facility] Work Phone: Comment on above: Expected: 01/03/2022 (Approximate), Expires: 03/05/2022 Start: 12-24-2021 Prothrombin time [facility] Work Phone: Start: 12-23-2021 Prothrombin time [facility] Work Phone: Start: 12-22-2021 Patient discharge [facility] Work Phone: Start: 12-21-2021 Assessment of risk o f venous thromboembolism [facility] Work Phone: Start: 12-21-2021 Cardiac monitoring [facility] Work Phone: Start: 12-21-2021 Catheterization of vein [facility] Work Phone: Start: 12-21-2021 Continuous pulse oximetry [facility] Work Phone: Start: 12-21-2021 Elevation of head of bed [facility] Work Phone: Start: 12-21-2021 Exercises [facility] Work Phone: Start: 12-21-[address] anned interventions [facility] Work Phone: Start: 12-21-2021 Insertion of cathete r into peripheral vein [facility] Work Phone: Start: 12-21-2021 Measuring intake and output [facility] Work Phone: Start: 12-21-2021 Notification of physician [facility] Work Phone: Start: 12-21-2021 Oxygen therapy [facility] Work Phone: Start: 12-21-2021 Providing care accor ding to standard [facility] Work Phone: Start: 12-21-2021 Provision of activit y privileges [facility] Work Phone: Start: 12-21-2021 Referral to occupati onal therapist [facility] Work Phone: Start: 12-21-2021 Referral to service [facility] Work Phone: Start: 12-21-2021 Tobacco use cessatio n education [facility] Work Phone: Start: 12-21-2021 US scan of thyroid Thyroid [facility] Work Phone: Start: 12-21-2021 [facility] Work Phone: Start: 12-21-2021 End: 12-21-2021 Following clinical pathway protocol [facility] Work Phone: Start: 12-21-[address] [facility] Work Phone: Start: 12-21-2021 Admission procedure [facility] Work Phone: Start: 12-21-2021 CT of head without contrast STROKE Brain/Head without Cont [facility] Work Phone: Start: 12-21-2021 CT Unspecified body region WO contrast [facility] Work Phone: Start: 12-21-2021 Oxygen therapy [facility] Work Phone: Start: 12-21-2021 End: 12-22-2021 [facility] Work Phone: Start: 11-21-2021 Influenza vaccination INFLUENZA (#1) [facility] Start: 09-24-2021 COVID-19 VACCINE (5 - Booster for Pfizer series) COVID-19 VACCINE (5 - Booster for Pfizer series) [facility] Start: 08-30-2021 End: 10-30-2021 PT panel - Platelet poor plasma by Coagulation assay [facility] Work Phone: Comment on above: Expected: 08/30/2021 , Expires: 10/30/2021 Start: 07-08-2021 End: 09-07-2021 Comprehensive metabolic 2000 panel - Serum or Plasma [facility] Work Phone: Comment on above: Expected: 07/08/2021 (Approximate), Expires: 09/07/2021 Start: 07-08-2021 End: 09-07-2021 LIPID PANEL BASIC [facility] Work Phone: Comment on above: Expected: 07/08/2021 (Approximate), Expires: 09/07/2021 Start: 04-27-2021 COVID-19 VACCINE (4 - Booster for Pfizer series) COVID-19 VACCINE (4 - Booster for Pfizer series) [facility] Start: 03-23-2021 ADVANCE DIRECTIVE DISCUSSION ADVANCE DIRECTIVE DISCUSSION [facility] Start: 03-23-2021 DEPRESSION ASSESSMENT DEPRESSION ASS ESSMENT [facility] Start: 02-21-2009 Pneumococcal Vaccine : 65+ (2 - PCV) Pneumococcal Vaccine: 65+ (2 - PCV) [facility] Start: 02-21-2009 PNEUMOCOCCAL: 65+ (2 - PCV) PNEUMOCOCCAL: 65+ (2 - PCV) [facility] Start: 02-23-2008 Urine microalbumin profile DTAP,TDAP,TD (1 - Tdap) [facility] Start: 1995 RSV Vaccine (1 - 1-d ose 60+ series) RSV Vaccine (1 - 1-dose 60+ series) [facility] Start: 08-12-1985 SHINGRIX VACCINE (1 of 2) VALDES GRIX VACCINE (1 of 2) [facility] Anion gap in Serum o r Plasma [facility] BUN/Creatinine ratio [facility] Calcium [Mass/volume ] in Serum or Plasma [facility] Carbon dioxide, tota l [Moles/volume] in Central venous blood [facility] Creatinine [Mass/vol ume] in Serum or Plasma [facility] Glucose [Mass/volume ] in Serum or Plasma [facility] Hemoglobin.gastroint estin al.lower [Presence] in Stool by Immunoassay FECAL OCCULT BLOOD TEST Lab Routine Abnormal CBC 06/04/2023 2:13 PM EDT [facility] Work Phone: INR in Blood by Coagulation assay [facility] Measurement of renal function [facility] End: 05-27-2025 MR Brain WO contrast MRI BRAIN W QUANT WO IVCON Radiology Routine Cognitive impairment, mild, so stated 1 Occurrences starting 04/27/2024 until 05/27/2025 [facility] Work Phone: Comment on above: 1 Occurrences starti ng 04/27/2024 until 05/27/2025 End: 05-27-2025 MR Unspecified body region 3D post processing MRI 3D BRAIN QUANT Radiology Routine Cognitive impairment, mild, so stated 1 Occurrences starting 04/27/2024 until 05/27/2025 [facility] Comment on above: 1 Occurrences starti ng 04/27/2024 until 05/27/2025 End: 03-17-2024 Mri brain brain stem w/o contrast material MRI BRAIN WO IVCON Radiology STAT Cerebral infarction, unspecified mechanism (HCC) 1 Occurrences starting 02/16/2023 until 03/17/2024 [facility] Work Phone: Comment on above: 1 Occurrences starti ng 02/16/2023 until 03/17/2024 Mri brain brain stem w/o contrast material MRI BRAIN WO IVCON Radiology STAT Cerebral infarction, unspecified mechanism (HCC) 02/17/2023 8:13 AM EST [facility] Work Phone: Patient Education ED Weakness (U ncertain Cause) [facility] Work Phone: Patient referral [facility] Work Phone: Potassium measurement [facility] Prothrombin time [facility] End: 09-13-2022 PT panel - Platelet poor plasma by Coagulation assay PROTHROMBIN TIME/PT Lab Routine custodial current use of anticoagulant Encounter for monitoring Coumadin therapy Once per week for 99 Occurrences starting 09/13/2021 until 09/13/2022 [facility] Work Phone: Comment on above: Once per week for 99 Occurrences starting 09/13/2021 until 09/13/2022 PT panel - Platelet poor plasma by Coagulation assay PROTHROMBIN TIME/PT Lab Routine custodial current use of anticoagulant Encounter for monitoring Coumadin therapy 09/13/2021 8:42 AM EDT [facility] Work Phone: End: 01-16-2024 PT panel - Platelet poor plasma by Coagulation assay PROTHROMBIN TIME/PT Lab Routine 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 Paroxysmal atrial fibrillation (HCC) Once per week for 99 Occurrences starting 01/16/2023 until 01/16/2024 [facility] Work Phone: Comment on above: Once per week for 99 Occurrences starting 01/16/2023 until 01/16/2024 End: 12-23-2024 PT panel - Platelet poor plasma by Coagulation assay PROTHROMBIN TIME Lab STAT 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 24 Occurrences starting 12/24/2023 until 12/23/2024 [facility] Work Phone: Comment on above: 24 Occurrences start ing 12/24/2023 until 12/23/2024 Serum chloride measurement [facility] Sodium measurement [facility] Urea nitrogen [Mass/volume] in Serum or Plasma [facility] End: 01-25-2023 Us soft tissue head & neck real time imge docm US THYROID/PARATHYROID Radiology Routine Thyroid nodule 1 Occurrences starting 12/26/2021 until 01/25/2023 [facility] Work Phone: Comment on above: 1 Occurrences starti ng 12/26/2021 until 01/25/2023 [facility] Immunizations Immunization Date Immunization Notes Care Provider Rich vargas 12-03-2023 influenza virus vacc ine, unspecified formulation Stas Mora MD Work Phone: [facility] 01-10-2023 influenza (HD-IIV4) vaccine, age 65+ yr, high dose, quadrivalent, PF (FLUZONE HIGH-DOSE) Coretta Jalloh [facility] 01-10-2023 influenza virus vacc ine, unspecified formulation Coretta Jalloh [facility] 12-26-2021 influenza, high-dose , quadrivalent vaccine (FLUZONE HIGH DOSE QUADRIVALENT) Stas Mora MD Work Phone: [facility] 12-26-2021 influenza virus vacc ine, unspecified formulation Senia Phillips [facility] 02-27-2021 tetanus toxoid, redu natividad diphtheria toxoid, and acellular pertussis vaccine, adsorbed Stas Mora MD Work Phone: [facility] 02-27-2021 zoster vaccine recombinant Stas Mora MD Work Phone: [facility] 12-25-2020 Covid (Pfizer) Dr. Stas gonzales Work Phone: [facility] 12-10-2020 influenza (HD-IIV4) vaccine, age 65+ yr, high dose, quadrivalent, PF (FLUZONE HIGH-DOSE) Coretta Jalloh [facility] 12-10-2020 influenza, high dose seasonal, preservative-free Stas Mora MD Work Phone: [facility] 09-17-2020 zoster vaccine recombinant Stas Mora MD Work Phone: [facility] 05-09-2020 Covid (Pfizer) Dr. Stas gonzales Work Phone: [facility] 04-18-2020 Covid (Pfizer) Dr. Stas gonzales Work Phone: [facility] 12-24-2016 influenza, high dose seasonal, preservative-free Stas Mora MD Work Phone: [facility] 12-22-2015 Influenza virus vaccine [facility] 12-22-2015 influenza, seasonal, injectable, preservative free Stas Mora MD Work Phone: [facility] Work Phone: 01-30-2014 influenza, high dose seasonal, preservative-free Stas Mora MD Work Phone: [facility] Work Phone: 01-24-2013 influenza virus vacc ine, unspecified formulation Stas Mora MD Work Phone: [facility] 02-22-2008 pneumococcal polysaccharide vaccine, 23 valent Stas Mora MD Work Phone: [facility] Work Phone: 02-22-2008 tetanus and diphther ia toxoids, adsorbed, preservative free, for adult use (2 Lf of tetanus toxoid and 2 Lf of diphtheria toxoid) Stas Mora MD Work Phone: [facility] Work Phone: Payers Date Payer Category Payer Self-pay [id number] 2022 Unknown [id number] 2016 Medicare [employer] [place] [id number] 2016-Present [phone] [address] [place] [address] O [id number] 2016 Medicare [employer] [place] [id number] 2016-Present [phone] [address] [place] [address] O [id number] 2016 Medicare (Managed Care) IN MEDIC ARE [id number] 2016 Medicare [id number] 1935 Unknown [id number] 2..840.1.815717.3.579. 2.627 1935 Unknown [id number] 2.16840.1.954029.3.579. 2.627 Unknown VA AUTH REQUIR ED SEE NOTE [id number] Unknown VA AUTH REQUIR ED SEE NOTE . [id number] Unknown [id number] 2.16.840.1.143616.3.579. 2.462 Unknown [id number] 2.16840.1.541190.3.579. 2.462 Unknown [id number] 2.16.840.1.432165.3.579. 2.462 Unknown [id number] 2.16.840.1.031328.3.579. 2.462 Unknown [id number] 2.16.840.1.678296.3.579. 2.462 Unknown [id number] 2.840.1.851255.3.579. 2.462 Unknown [id number] 2.16840.1.081852.3.579. 2.462 Unknown [id number] 2.16.840.1.480870.3.579. 2.462 Unknown [id number] 2.16840.1.858743.3.579. 2.462 Unknown [id number] 2.16.840.1.122449.3.579. 2.462 Unknown [id number] 2.16.840.1.533377.3.579. 2.462 Unknown [id number] 2.16.840.1.418922.3.579. 2.462 Unknown [id number] 2.16.840.1.463894.3.579. 2.462 Unknown [id number] 2.16840.1.298772.3.579. 2.462 Unknown [id number] 2.16.840.1.561982.3.579. 2.462 Unknown [id number] 2.16.840.1.376352.3.579. 2.462 Unknown [id number] 2.16.840.1.900535.3.579. 2.462 Unknown [id number] 2.16.840.1.895888.3.579. 2.462 Unknown [id number] 2.16.840.1.807541.3.579. 2.462 Unknown [id number] 2.16.840.1.642587.3.579. 2.462 Unknown [id number] 2.16.840.1.693154.3.579. 2.462 Unknown [id number] 2.16.840.1.773018.3.579. 2.462 Unknown [id number] 2.16.840.1.382695.3.579. 2.462 Unknown [id number] 2.16840.1.611496.3.579. 2.462 Unknown [id number] 2.16840.1.841994.3.579. 2.462 Unknown [id number] 2.16840.1.306288.3.579. 2.462 Unknown [id number] 2.16840.1.432316.3.579. 2.462 Unknown [id number] 2.16840.1.352305.3.579. 2.462 Unknown [id number] 2.16840.1.764252.3.579. 2.462 Unknown [id number] 2.16.840.1.763950.3.579. 2.462 Unknown [id number] 2.16.840.1.772004.3.579. 2.462 Unknown [id number] 2.16.840.1.980711.3.579. 2.462 Unknown [id number] 2.16.840.1.731391.3.579. 2.462 Unknown [id number] 2.16840.1.442791.3.579. 2.462 Unknown [id number] 2.16.840.1.563535.3.579. 2.462 Unknown [id number] 2.16.840.1.605408.3.579. 2.462 Social History Date Type Detail Facility Start: 05-04-2017 End: 01-06-2025 Tobacco smoking status NHIS Ex-smoker [facility] Start: 02-15-2021 End: 07-28-2024 Alcohol intake Current non-drinker of alcohol (finding) [facility] Start: 08-26-2020 End: 08-29-2021 History SDOH Alcohol Frequency 2 [facility] Start: 08-26-2020 End: 08-29-2021 History SDOH Alcohol Std Drinks 1 [facility] Start: 08-26-2020 End: 08-29-2021 History SDOH Social Connections Religious 3 [facility] Start: 08-26-2020 End: 08-29-2021 History SDOH Social Connections Living 5 [facility] Start: 08-26-2020 History SDOH Physical Activity MPS 6 [facility] Start: 08-26-2020 Education 12 [facility] Start: 1935 Sex Assigned At Male [facility] Start: 02-11-2020 End: 12-26-2021 Exposure to SARS-CoV-2 (event) Not sure [facility] History of tobacco use Current smoker [facility] Start: 05-04-2017 End: 12-26-2021 Tobacco use and exposure Smokeless tobacco non-user [facility] Start: 12-21-2021 End: 02-10-2023 Tobacco smoking status NEIS Unknown if ever smoked [facility] Start: 12-22-2021 Non-smoker [facility] Start: 12-26-2021 Tobacco Comment 30 yaers ago [facility] Start: 02-28-2020 End: 08-29-2021 History of Social function [facility] Start: 02-28-2020 End: 08-29-2021 Social connection and isolation panel [facility] Do you belong to any clubs or organizations such as jehovah's witness groups, unions, fraternal or athletic groups, or school groups? No [facility] Are you now , , , , never or living with a partner? [facility] How often to you hav e a drink containing alcohol? Monthly or less [facility] How many standard dr inks containing alcohol do you have on a typical day? 1 or 2 [facility] How often do you hav e 6 or more drinks on 1 occasion? Never [facility] How hard is it for y ou to pay for the very basics like food, housing, medical care, and heating Not hard at all [facility] Do you feel stress - tense, restless, nervous, or anxious, or unable to sleep at night because your mind is troubled all the time - these days [OSQ] Not at all [facility] (I/We) worried wheth er (my/our) food would run out before (I/we) got money to buy more. Never true [facility] Start: 08-26-2020 Gender identity Identifies as male gender (finding) [facility] Start: 08-26-2020 Sexual orientation Heterosexual (finding) [facility] Are you now , , , , never or living with a partner? [facility] How often to you hav e a drink containing alcohol? 2-4 times a month [facility] Goals Date Patient Goal Desired Activity /State Functional Status Date Assessment Result Facility 09-06-2024 Functional status Ambulates [facility] Work Phone: 07-26-2024 Total score [AUDIT-C] 1 07/27/19 6:26 PM EDT User, Olena [facility] [facility] 07-[facility]24 Within the last year , have you been humiliated or emotionally abused in other ways by your partner or ex-partner? No 07/26/2024 6:26 PM EDT User, Normat [facility] 07-26-2024 Within the last year , have you been afraid of your partner or ex-partner? No 07/26/2024 6:26 PM EDT User, Normat [facility] 07-26-2024 Within the last year , have you been raped or forced to have any kind of sexual activity by your partner or ex-partner? No 07/26/2024 6:26 PM EDT User, Normat [facility] 07-26-2024 Within the last year , have you been kicked, hit, slapped, or otherwise physically hurt by your partner or ex-partner? No 07/26/2024 6:26 PM EDT User, Mychart No [facility] 07-26-2024 How often to you hav e a drink containing alcohol? Monthly or less 07/26/2024 6:26 PM EDT User, Mychart Monthly or less [facility] 07-26-[address] inks containing alcohol do you have on a typical day? 1 or 2 07/26/2024 6:26 PM EDT User, Mychart 1 or 2 [facility] 07-26-2024 How often do you hav e 6 or more drinks on 1 occasion? Never 07/26/2024 6:26 PM EDT User, Mychart Never [facility] 11-17-2022 Functional Status Up ad tara [facility] 11-17-2022 Functional Status Identified as high risk, Fall ID band on, Room located near nursing station [facility] 12-22-2021 Functional status Ambulates;Chair [facility] Work Phone: 07-02-2016 Are you deaf, or do you have serious difficulty hearing No 07/02/2016 2:52 PM Anita Bentley, DO No [facility] Work Phone: 07-02-2016 Are you blind, or do you have serious difficulty seeing, even when wearing glasses No 07/02/2016 2:52 PM Anita Bentley, DO No [facility] 07-02-2016 Do you have serious difficulty walking or climbing stairs No 07/02/2016 2:52 PM Anita Bentley, DO No [facility] 07-02-2016 Do you have difficul ty dressing or bathing No 07/02/2016 2:52 PM Anita Bentley, DO No [facility] 07-02-2016 Because of a physica l, mental, or emotional condition, do you have difficulty doing errands alone such as visiting a physician's office or shopping No 07/02/2016 2:52 PM Anita Bentley, DO No [facility] Mental Status Date Assessment Result Facility 09-06-2024 Cognitive function Voice/Name [facility] Work Phone: 09-05-2024 Cognitive function Appropriate;Cooperativ e [facility] Work Phone: 02-10-2023 Cognitive function Level Of Cons ciousness Awake;Alert;Appropriate;Fol lows Commands [facility] Work Phone: 11-17-2022 Mental Status Orientation Oriented x 4 [facility] 11-17-2022 Mental Status [facility] 12-22-2021 Cognitive function Voice/Name [facility] Work Phone: 12-21-2021 Cognitive function Voice/Name [facility] Work Phone: 07-02-2016 Because of a physica l, mental, or emotional condition, do you have serious difficulty concentrating, remembering, or making decisions No 07/02/2016 2:52 PM EDT Anita Zhang, DO No [facility] Clinical Notes 03-12-2020 to 09-21-2024 Telephone Encounter - Petty Vargas - 09/21/2024 9:21 AM EDTTelephone Encounter - Petty Vargas - 09/21/2024 9:21 AM EDT Note Date & Type Note Facility 09-21-2024 Telephone encounter Note Form atting of this note might be different from the original. [facility]. Maria Guadalupe states that he has been in there for two weeks. Please advise [facility] 09-21-2024 Miscellaneous Notes Formattin g of this note might be different from the original. [facility]. Maria Guadalupe states that he has been in there for two weeks. Please advise documented in this encounter [facility] 09-06-2024 Consult note [facility] 09-06-2024 Consult note Note Date/Time September 06, 2024 4:37pm [facility] Medical Records Department [address] [place] [address] Counseling Note - Pharmacy 09/06/24 1143 MR#: [id number] Acct: [id number] Name: ROBY FLORES Rep #:[id number] : 1935 89 From: Isabelle Summers PCP: Dr. Stas Mora MD Status:AD M IN Location: [place] [address] Pharmacy [place] Med Reconciliation Pharmacy Service has performed discharge [...] Signature (if applicable): Date CC: ~ Signed [facility] Work Phone: 1(578) 525-795306-17-2025 Discharge summary Author Navid Dominguez [facility] Note Date/Time September 06, 2024 11:1 4am [facility] Medical Records Department [address] [place] [address] Discharge Summary 09/06/24 1109 MR#: [id number] Acct: [id number] Name: ROBY FLORES Rep #:[id number] : 1935 89 From: Navid Trejo PCP: Dr. Stas Mora MD Status:AD M IN Location: [facility] [id number] Providers Date of Admission: 09/02/24 Date of [...] [facility] the [facility] 09[facility]: INR 2.4. Hold warfarin today and [...] The daughter is the healthcare power of claim attorney. #History of dementia: On rivastigmine #Dyslipidemia: [...] (Auto) 66.8, Lymph % (Auto) 16.4 L, Blount % (Auto) 9.1, Eos % (Auto) 6.3 [...] Mcc Facility Charges/Coding Visit Charges Inpatient E&M: 44325 Disch Hosp >30min 09/06/24 1114 <Electronically signed by Navid Dominguez MD> Cosigner Signature (if applicable): CC: Dr. Stas Mora MD; Dr. Navid Dominguez MD~ Signed [facility] Work Phone: 1([phone]) 956-101306-17-2025 Discharge summary Author Navid Dominguez [facility] Note Date/Time September 06, 2024 11:0 9am [facility] Medical Records Department [address] [place] [address] Transfer to Extended Care MR#: [id number] Acct: [id number] Name: ROBY FLORES Rep #:[id number] : 1935 89 From: Navid Trejo PCP: Dr. Stas Mora MD Status:AD M IN Certification of patient admission REQUIRED AT TIME OF ADMISSION. I CERTIFY THAT POST-HOSPITAL ECF SERVICES ARE REQUIRED TO BE GIVEN ON AN IN-PATIENT BASIS BECAUSE OF THE ABOVE NAMED PATIENT'S NEED FOR DETENTION CARE ON A CONTINUING BASIS FOR THE [...] The daughter is the healthcare power of claim attorney. #History of dementia: On rivastigmine #Dyslipidemia: [...] liberalized regular diet with consistency/texture as per BOILERS INSPECTOR. Will continue 120mL ensure plus HP 4 [...] Mora MD; Dr. Kathy Wells MD ~ [facility] Work Phone: 1(902) 750-960906-17-2025 Discharge summary [facility] Medical Records Department [address] [place] [address] Discharge Summary 09/06/24 1109 MR#: [id number] Acct: [id number] Name: ROBY FLORES Rep #:[id number] : 1935 89 From: Navid Trejo PCP: Dr. Stas Mora MD Status:AD M IN [facility] Prov[facility] Date of Admission: 09/02/24 Date of [...] explained to the [facility] 09/06: INR 2.4. Hold warfarin today and [...] The daughter is the healthcare power of claim attorney. #History of dementia: On rivastigmine #Dyslipidemia: [...] (Auto) 66.8, Lymph % (Auto) 16.4 L, Blount % (Auto) 9.1, Eos % (Auto) 6.3 [...] Mcc Facility Charges/Coding Visit Charges Inpatient E&M: 83495 Disch Hosp >30min 09/06/24 1114 Cosigner Signature (if applicable): CC: Dr. Stas Mora MD; Dr. Navid Dominguez MD~ Signed [facility]06-17-2025 Discharge summary [facility] Medical Records Department [address] [place] [address] Transfer to [facility] MR#: [id number] Acct: [id number] Name: ROBY FLORES Rep #:[id number] : 1935 89 From: Navid Trejo PCP: Dr. Stas Mora MD Status:AD M IN Certification of patient admission REQUIRED AT TIME OF ADMISSION. I CERTIFY THAT POST-HOSPITAL [facility] SERVICES ARE REQUIRED TO BE GIVEN ON AN IN-PATIENT BASIS BECAUSE OF THE ABOVE NAMED PATIENT'S NEED FOR DETENTION CARE ON A CONTINUING BASIS FOR THE CONDITION(S) FOR WHICH HE/SHE WAS RECEIVING IN-PATIENT HOSPITAL SERVICES PRIOR TO HIS/HER TRANSFER TO THE [facility]. 09/06/24 1109 Diet Diet Order/Speech Therapy: INPATIENT [...] [facility] # Fever * Patient developed [...] The daughter is the healthcare power of claim attorney. #History of dementia: On rivastigmine #Dyslipidemia: [...] liberalized regular diet with consistency/texture as per BOILERS INSPECTOR. Will continue 120mL ensure plus HP 4 [...] Mora MD; Dr. Kathy Wells MD ~ [facility]06-17-2025 [facility] Medical Records Department [address] [place] [address] Discharge Summary 09/06/24 1109 MR#: [id number] Acct: [id number] Name: ROBY FLORES Rep #: [id number] : 1935 89 From: Navid Dominguez MD PCP: Dr. Stas Mora MD Status:ADM IN Location: [place] [address]-1 Providers Date of Admission: 09/02/24 Date of [...] The daughter is the healthcare power of claim attorney. #History of dementia: On rivastigmine #Dyslipidemia: [...] / Lab / Microbiol (more content not included)...[facility] 09-05-2024 Progress note Author Navid Dominguez [facility] Note Date/Time September 05, 2024 4:15 pm [facility] Medical Records Department [address] [place] [address] Progress Note - Hospitalist 09/05/24 1608 MR#: [id number] Acct: [id number] Name: ROBY FLORES Rep #:[id number] : 1935 89 From: Navid Trejo PCP: Dr. Stas Mora MD Status:AD M IN Location: [facility] [place]469-1 Reason for Visit Reason for Visit: Diagnoses [...] Clarity Clear, Urine pH 7.0, Ur Specific [place] 1.005, Urine Protein 15 H, Urine Glucose [...] 77.2 H, Lymph % (Auto) 9.8 L, Blount % (Auto) 7.9, Eos % (Auto) 4.0, [...] explained to the [facility] # Fever * Patient developed [...] The daughter is the healthcare power of claim attorney. #History of dementia: On rivastigmine #Dyslipidemia: On statin #Benign essential hypertension: On lisinopril. DVT prophylaxis: * Resume Coumadin today. INR 1.8. Daughter still thinking about that she wants him to continue otherwise. Code status: DNRCCA no intubation * Disposition: Awaiting placement. PT OT on board. Charges/Coding Visit Charges Inpatient E&M: 00604 Subs Hosp L2 09/05/24 1615 <Electronically signed by Navid Dominguez MD> Cosigner Signature (if applicable): CC: ~ Signed [facility] Work Phone: [phone]) 677-877906-16-2025 Progress note [facility] Medical Records Department [address] [place] [address] Progress Note - Hospitalist 09/05/24 1608 MR#: [id number] Acct: [id number] Name: ROBY FLORES Rep #:[id number] : 1935 89 From: Navid Trejo PCP: Dr. Stas Mora MD Status:AD M IN Location: [place] [address]-1 Reason for Visit Reason for Visit: Diagnoses [...] Clarity Clear, Urine pH 7.0, Ur Specific [place] 1.005, Urine Protein 15 H, Urine Glucose [...] 77.2 H, Lymph % (Auto) 9.8 L, Blount % (Auto) 7.9, Eos % (Auto) 4.0, [...] explained to the patient [facility] # Fever * Patient developed [...] The daughter is the healthcare power of claim attorney. #History of dementia: On rivastigmine #Dyslipidemia: On statin #Benign essential hypertension: On lisinopril. DVT prophylaxis: * Resume Coumadin today. INR 1.8. Daughter still thinking about that she wants him to continue otherwise. Code status: DNRCCA no intubation * Disposition: Awaiting placement. PT OT on board. Charges/Coding Visit Charges Inpatient E&M: 75126 Subs Hosp L2 09/05/24 1615 Cosigner Signature (if applicable): CC: ~ Signed [facility]06-15-2025 Progress note Author [facility] Note Date/Time September 04, 2024 3:37 pm [facility] Medical Records Department [address] [place] [address] Progress Note 09/04/24 1412 MR#: [id number] Acct: [id number] Name: ROBY FLORES Rep #:[id number] : 1935 89 From: Kathy Wells MD PCP: Dr. Stas Mora MD Status:AD M IN Location: [place] [address] Subjective Subjective Patient seen and examined. He [...] 78.0 H, Lymph % (Auto) 7.8 L, Blount % (Auto) 7.7, Eos % (Auto) 5.3 [...] The daughter is the healthcare power of claim attorney. * In light of patient's confusion [...] on board. Charges/Coding Visit Charges Inpatient E&M: 48580 Subs Hosp L2 09/04/24 1534 <Electronically signed by Kathy Wells MD> Kathy Wells MD Cosigner Signature (if applicable): CC: ~ Signed [facility] Work Phone: 1(295) 227-890106-15-2025 Progress note [facility] Medical Records Department [address] [place] [address] Progress Note 09/04/24 1412 MR#: [id number] Acct: [id number] Name: ROBY FLORES Rep #:[id number] : 1935 89 From: Kathy Wells MD PCP: Dr. Stas Mora MD Status:AD M IN Location: [place] [address] Subjective Subjective Patient seen and examined. He [...] 78.0 H, Lymph % (Auto) 7.8 L, Blount % (Auto) 7.7, Eos % (Auto) 5.3 [...] The daughter is the healthcare power of claim attorney. * In light of patient's confusion [...] on board. Charges/Coding Visit Charges Inpatient E&M: 72965 Subs Hosp L2 09/04/24 1537 Kathy Wells MD Cosigner Signature (if applicable): CC: ~ Signed [facility]06-14-2025 Progress note Author Kathy [facility] Note Date/Time September 03, 2024 6:29 pm [facility] Medical Records Department [address] [place] [address] Progress Note 09/03/24 1135 MR#: [id number] Acct: [id number] Name: ROBY FLORES Rep #:[id number] : 1935 89 From: Kathy Wells MD PCP: Dr. Stas Mora MD Status:AD M IN Location: [place] [address] Subjective Subjective Patient seen and examined. He [...] 83.4 H, Lymph % (Auto) 6.7 L, Blount % (Auto) 6.0, Eos % (Auto) 2.8, [...] The daughter is the healthcare power of claim attorney. * In light of patient's confusion [...] on board. Charges/Coding Visit Charges Inpatient E&M: 99886 Subs Hosp L2 09/03/24 0989 <Electronically signed by Kathy Wells MD> Kathy Wells MD Cosigner Signature (if applicable): CC: ~ Signed [facility] Work Phone: 1(607) 670-806506-14-2025 Progress note [facility] Medical Records Department [address] [place] [address] Progress Note 09/03/24 1135 MR#: [id number] Acct: [id number] Name: ROBY FLORES Rep #:[id number] : 1935 89 From: Kathy Wells MD PCP: Dr. Stas Mora MD Status:AD M IN Location: [place] [address] Subjective Subjective Patient seen and examined. He [...] 83.4 H, Lymph % (Auto) 6.7 L, Blount % (Auto) 6.0, Eos % (Auto) 2.8, [...] The daughter is the healthcare power of claim attorney. * In light of patient's confusion [...] on board. Charges/Coding Visit Charges Inpatient E&M: 57130 Subs Hosp L2 09/03/24 4450 Kathy Wells MD Cosigner Signature (if applicable): CC: ~ Signed [facility]06-14-2025 Consult note Author Spike De La Cruz [facility] Note Date/Time September 03, 2024 3:49 pm [facility] Medical Records Department [address] [place] [address] Pharmacokinetic/Renal -Consult 09/03/24 1548 MR#: [id number] Acct: [id number] Name: ROBY FLORES Rep #:[id number] : 1935 89 From: Spike [facility] PCP: Dr. Stas Mora MD Status:AD M IN Location: [place] [address] Consult Antibiotic Management Pharmacy has been consulted [...] 09/03/24 1549 <Electronically signed by Spike Angelo [facility]> Date _ Spike De La Cruz [facility] Cosigner Signature (if applicable): Date CC: ~ Signed [facility] Work Phone: 1(805) 435-434106-14-2025 Consult note [facility] Medical Records Department [address] [place] [address] Pharmacokinetic/Renal -Consult 09/03/24 1548 MR#: [id number] Acct: [id number] Name: ROBY FLORES Radha Rep #:[id number] : 1935 89 From: Spike [facility] PCP: Dr. Stas Mora MD Status:AD M IN Location: [place] [address] Consult Antibiotic Management Pharmacy has been consulted [...] 09/03/24 1549 ering RPh> Date _ Spike De La Cruz [facility] Cosigner Signature (if applicable): Date CC: ~ Signed [facility]06-13-2025 Progress note Author Kathy Wells [facility] Note Date/Time September 02, 2024 6:45 pm [facility] Medical Records Department [address] [place] [address] Progress Note 09/02/24 1404 MR#: [id number] Acct: [id number] Name: ROBY FLORES Rep #:[id number] : 1935 89 From: Kathy Wells MD PCP: Dr. Stas Mora MD Status:AD M IN Location: [place] [address] Subjective Subjective Patient seen and examined. He [...] (Auto) 87.9 H, Lymph %(Auto) 3.8 L, Blount % (Auto) 4.8, Eos % (Auto) 2.2, [...] The daughter is the healthcare power of claim attorney. * In light of patient's confusion [...] intubation * Charges/Coding Visit Charges Inpatient E&M: 83662 Subs Hosp L2 09/02/24 1845 <Electronically signed by Kathy Wells MD> Kathy Wells MD Cosigner Signature (if applicable): CC: ~ Signed [facility] Work Phone: 1(320) 481-483106-13-2025 Progress note [facility] Medical Records Department [address] [place] [address] Progress Note 09/02/24 1404 MR#: [id number] Acct: [id number] Name: ROBY FLORES Rep #:[id number] : 1935 89 From: Kathy Wells MD PCP: Dr. Stas Mora MD Status:AD M IN Location: [place] [address]1 Subjective Subjective Patient seen and examined. He [...] (Auto) 87.9 H, Lymph %(Auto) 3.8 L, Blount % (Auto) 4.8, Eos % (Auto) 2.2, [...] The daughter is the healthcare power of claim attorney. * In light of patient's confusion [...] intubation * Charges/Coding Visit Charges Inpatient E&M: 34984 Subs Hosp L2 09/02/24 8273 Kathy Wells MD Cosigner Signature (if applicable): CC: ~ Signed [facility]06-13-2025 Evaluation note* Diagnosis Onset Date Resolution Status Admit Date Adult failure to thrive acute [facility] 2024 12:49pm Chronic anticoagulation acute J [facility] 2024 12:49pm Contusion of hip acute August 12:49pm Fall acute September 02 12:49pm History of atrial fibrillation acute September 02, 2024 12:49pm History of dementia acute September 02, 2024 12:49pm History of TIAs acute August 12:49pm Unable to ambulate acute August 212024 12:49pm [facility] Work Phone: 1(947) 317-247706-13-2025 Evaluation note* Diagnosis Onset Date Resolution Status Admit Date Chronic anticoagulation acute J [facility] 2024 12:49pm Contusion of hip acute August 12:49pm Fall acute September 02 12:49pm History of atrial fibrillation acute September 02, 2024 12:49pm History of TIAs acute August 12:49pm Unable to ambulate acute August 212024 12:49pm Adult failure to thrive inactive [facility] 2024 12:49pm History of dementia inactive September 02, 2024 12:49pm [facility] [employer] Work Phone: 1(776) 775-885206-12-2025 Consult note Author Zachary Lubin [facility] Note Date/Time September 01, 2024 9:15 pm [facility] Medical Records Department [address] [place] [address] Pharmacokinetic/Renal -Consult 09/01/242113 MR#: [id number] Acct: [id number] Name: ROBY FLORES Radha Rep #:[id number] : 1935 89 From: Zachary Serrano od PCP: Dr. Stas Mora MD Status:AD M GERMAN Y Location: [place] [address] Consult Antibiotic Management Pharmacy has been consulted [...] (if applicable): Date _ CC: ~ Signed [facility] Work Phone: 1(745) 733-294406-12-2025 Progress note Author Marta Black [facility] Note Date/Time September 01, 2024 7:55 pm [facility] Medical Records Department [address] [place] [address] Progress Note - Hospitalist 09/01/241952 MR#: [id number] Acct: [id number] Name: ROBY FLORES Rep #:[id number] : 1935 89 From: Marta Black DO PCP: Dr. Stas Mora MD Status:AD M GERMAN Location: [place] [address] Hospitalist Note Called regarding Mr. Flores having [...] Cosigner Signature (if applicable): CC: ~ Signed [facility] Work Phone: 1(793) 104-237106-12-2025 Consult note [facility] Medical Records Department [address] [place] [address] Pharmacokinetic/Renal -Consult 09/01/242113 MR#: [id number] Acct: [id number] Name: ROBY FLORES Rep #:[id number] : 1935 89 From: Zachary Serrano od PCP: Dr. Stas Mora MD Status:AD M GERMAN Y Location: [place] [address] Consult Antibiotic Management Pharmacy has been consulted [...] (if applicable): Date _ CC: ~ Signed [facility]06-12-2025 History and physical note Author Kathy Wells [facility] Note Date/Time September 01, 2024 6:04 pm [facility] Medical Records Department [address] [address] H&P Exam - Hospitalist 09/01/24 1018 MR#: [id number] Acct: [id number] Name: ROBY FLORES Rep #:[id number] : 1935 89 From: Kathy Wells MD PCP: Dr. Stsa Mora MD Status:AD M GERMAN Location: [facility] IU605-4 HPI - General General Date of Admission: [...] in the ED were BP of 180/89, KS of 87, RR of 18 and temp [...] and weakness due to mechanical fall. [facility] Medical History Chronic anticoagulation TIA (transient [...] 87.5 H, Lymph % (Auto) 4.8 L, Blount % (Auto) 5.7, Eos % (Auto) 1.2, [...] Clarity Clear, Urine pH 8.0, Ur Specific [place] 1.010, Urine Protein 15 H, Urine Glucose [...] No fracture or dislocation present. Reading Location: [facility] 09/01/24 09:05 IMPRESSION: Cerebral atrophy. Mucosal thickening of the ethmoid sinuses as well as opacification of the left maxillary sinus. Reading Location: [facility] Chest X-Ray 09/01/24 09:25 IMPRESSION: No acute abnormality is seen. Reading Location: [facility] Assessment & Plan Assessment/Plan (1) Adult [...] The daughter is the healthcare power of claim attorney. * In light of patient's confusion [...] be DNR CCA no intubation. * Total bfiu-lv-wjuh time 16 minutes. Charges/Coding Visit Charges Inpatient E&M: 95429 Init Hosp L3 Procedures Hospitalists Procedures: 28041 Advncd Care Plan 30 Min 09/01/24 1804 <Electronically signed by Kathy Wells MD> Cosigner Signature (if applicable): CC: Dr. Stas Mora MD; Dr. Kathy Wells MD~ Signed [facility] Work Phone: 1(860) 668-322806-12-2025 Progress note [facility] Medical Records Department [address] [place] [address] Progress Note - Hospitalist 09/01/241952 MR#: [id number] Acct: [id number] Name: ROBY FLORES Rep #:[id number] : 1935 89 From: Marta Black DO PCP: Dr. Stas Mora MD Status:AD M [facility] Location: [place] [address] Hospitalist Note Called regarding Mr. Flores having [...] Cosigner Signature (if applicable): CC: ~ Signed [facility]06-12-2025 History and physical note [facility] Medical Records Department [address] [place] [address] H&P Exam - Hospitalist 09/01/24 1018 MR#: [id number] Acct: [id number] Name: ROBY FLORES Rep #:[id number] : 1935 89 From: Kathy Wells MD PCP: Dr. Stas Mora MD Status:AD M [facility] Location: [place] [address] HPI - General General Date of Admission: [...] in the ED were BP of 180/89, KS of 87, RR of 18 and temp [...] and weakness due to mechanical fall. [facility] Medical History Chronic anticoagulation TIA (transient [...] 87.5 H, Lymph % (Auto) 4.8 L, Blount % (Auto) 5.7, Eos % (Auto) 1.2, [...] Clarity Clear, Urine pH 8.0, Ur Specific [place] 1.010, Urine Protein 15 H, Urine Glucose [...] No fracture or dislocation present. Reading Location: [facility] 09/01/24 09:05 IMPRESSION: Cerebral atrophy. Mucosal thickening of the ethmoid sinuses as well as opacification of the left maxillary sinus. Reading Location: [facility]--1 Chest X-Ray 09/01/24 09:25 IMPRESSION: No acute abnormality is seen. Reading Location: [facility] Assessment & Plan Assessment/Plan (1) Adult failure [...] The daughter is the healthcare power of claim attorney. * In light of patient's confusion [...] be DNR CCA no intubation. * Total gfcw-os-uwta time 16 minutes. Charges/Coding Visit Charges Inpatient E&M: 72479 Init Hosp L3 Procedures Hospitalists Procedures: 79983 Advncd Care Plan 30 Min 09/01/24 1804 Cosigner Signature (if applicable): CC: Dr. Stas Mora MD; Dr. Kathy Wells MD~ Signed [facility]06-12-2025 Telephone encounter Note* Telephone Encounter - Haydee Oliveros LPN - 09/01/2024 2:49 PM EDT Mychart message sent [facility]06-12-2025 Miscellaneous Notes* Telephone Encounter - Haydee Oliveros LPN - 09/01/2024 2:49 PM EDT Mychart message sent * Telephone Encounter - Luciana Cisneros MD - 09/01/2024 1:26 PM EDT Thanks Russell, Staff please let patient know what the pharmacist as opined on. Regards, Luciana Cisneros MD * Telephone Encounter - Russell Aguayo [facility] - 09/01/2024 9:46 AM EDT Images [...] alvarado using Good Rx coupons. At [facility] (his current pharmacy), he can get a 1 mo supply for ~$30. If he switches the prescription to [facility], he can get a 1 mo supply for ~$20. See coupons below. Rivastigmine patches are also available via GoodRx. It appears the cheapest option is through [facility], in which he can get 30 patches for $52. Coupon also below. Sending to PCP to review and provide patient with coupon card information. Russell Aguayo, PharmD, BCPS Primary Care Clinical Pharmacist Memantine coupon at [facility] Memantine coupon at [facility] Rivastigmine patches coupon at [facility] documented in [facility] Telephone encounter Note * Telephone Encounter - Luciana Cisneros MD - 09/01/2024 1:26 PM EDT Thanks Russell, Staff please let patient know what the pharmacist as opined on. Regards, Luciana Cisneros MD [facility]06-12-2025 Discharge summary Author Inderjit Gillespie [facility] Note Date/Time September 01, 2024 10:2 5am [facility] System Medical Records Department [address] [place] [address] Emergency Department Summary 09/01/24 MR#: [id number] Acct: [id number] Name: ROBY FLORES Rep #:[id number] : [...] shoulders elbows and wrist. He has normal retread operator strength. Neurologically he is awake alert. [...] 87.5 H Lymph % (Auto) 4.8 L Blount % (Auto) 5.7 Eos % (Auto) 1.2 [...] Clarity Clear Urine pH 8.0 Ur Specific [place] 1.010 Urine Protein 15 H Urine Glucose [...] No fracture or dislocation present. Reading Location: [facility] 09/01/24 09:05 IMPRESSION: Cerebral atrophy. Mucosal thickening of the ethmoid sinuses as well as opacification of the left maxillary sinus. Reading Location: [facility] Chest X-Ray 09/01/24 09:25 IMPRESSION: No acute abnormality is seen. Reading Location: [facility]1 Chest x-ray, 2 views, AP and [...] to thrive Disposition Disposition: Acute Care Hospital [facility] What to do if you have Problems For any increased pain, shortness of breath, bleeding, nausea or vomiting, chestpain, or any unexpected problems, contact your Primary Care Provider. Call [facility] ([phone]) or report to the closest Emergency Room. Call 911 if necessary. 09/01/24 1025 <Electronically signed by nIderjit Gillespie MD> Cosigner Signature (if applicable): CC: Dr. Stas Mora MD ~ Signed [facility] Work Phone: [phone]) 550-851106-12-2025 Discharge summary [facility] System Medical Records Department [address] [place] [address] Emergency Department Summary 09/01/24 MR#: [id number] Acct: [id number] Name: ROBY FLORES Rep #:[id number] : 1935 89 From: Inderjit Gilelspie MD PCP: Dr. Stas Mora MD Status:RE [...] shoulders elbows and wrist. He has normal retread operator strength. Neurologically he is awake alert. [...] 87.5 H Lymph % (Auto) 4.8 L Blount % (Auto) 5.7 Eos % (Auto) 1.2 [...] Clarity Clear Urine pH 8.0 Ur Specific [place] 1.010 Urine Protein 15 H Urine Glucose [...] No fracture or dislocation present. Reading Location: [facility] 09/01/24 09:05 IMPRESSION: Cerebral atrophy. Mucosal thickening of the ethmoid sinuses as well as opacification of the left maxillary sinus. Reading Location: [facility] Chest X-Ray 09/01/24 09:25 IMPRESSION: No acute abnormality is seen. Reading Location: [facility] Chest x-ray, 2 views, AP and [...] to thrive Disposition Disposition: Acute Care Hospital [facility] What to do if you have Problems For any increased pain, shortness of breath, bleeding, nausea or vomiting, chestpain, or any unexpected problems, contact your Primary Care Provider. Call [facility] ([phone]) or report tothe closest Emergency Room. Call 911 if necessary. 09/01/24 1025 Cosigner Signature (if applicable): CC: Dr. Stas Mora MD ~ Signed [facility]06-12-2025 Telephone encounter Note* Telephone Encounter - Russell Aguayo, [facility] - 09/01/2024 9:46 AM EDT Images [...] alvarado using Good Rx coupons. At [facility] (his current pharmacy), he can get a 1 mo supply for ~$30. If he switches the prescription to [facility], he can get a 1 mo supply for ~$20. See coupons below. Rivastigmine patches are also available via [employer]. It appears the cheapest option is through [facility], in which he can get 30 patches for $52. Coupon also below. Sending to PCP to review and provide patient with coupon card information. Russell Aguayo, Saúl, BCPS Primary Care Clinical Pharmacist Memantine coupon at [facility] Memantine coupon at [facility] Rivastigmine patches coupon at [facility] Work Phone: [phone] Radiology Diagnostic study note [facility] Imaging Services [address] [place] [address] [id number] Brain/Head without Contrast MR#: [id number] Acct: [id number] Name: ROBY FLORES Rep #: [id number] : 1935 M 89 From: Laith Chavez MD PCP: Dr. Stas Mora MD Status: RE G ER Study:Brain/Head without Contrast Date of Exa m: 09/01/24 Exam# [id number] Ordering Dr: Earlene Gillespie MD PROCEDURE: BRAIN/HEAD [...] of the left maxillary sinus. Reading Location: [place] [address] CC: Dr. Inderjit Gillespie MD; Dr. Stas Mora MD ~ Office Technology Instructor: Signed [facility]06-12-2025 Radiology Diagnostic study note [facility] Imaging Services [address] [place] [address] [id number] Chest 1 View (Portable) MR#: [id number] Acct: [id number] Name: ROBY FLORES Rep #: [id number] : 1935 89 From: Laith Chavez MD PCP: Dr. Stas Mora MD Status: RE G ER Study:Chest 1 View (Portable) Date of Exam: 09/01/24 Exam# [id number] Ordering Dr: Earlene Gillespie MD PROCEDURE: CHEST [...] No acute abnormality is seen. Reading Location: [facility]- CC: Dr. Inderjit Gillespie MD; Dr. Stas Mora MD ~ Office Technology Instructor: Signed [facility]06-12-2025 Radiology Diagnostic study note [facility] Imaging Services [address] [place] [id number] Hips B/L min 2 views w/ Pelvis MR#: [id number] Acct: [id number] Name: ROBY FLORES Rep #: [id number] : 1935 M 89 From: Laith Chavez MD PCP: Dr. Stas Mora MD Status: RE G ER Study:Hips B/L min 2 views w/ Pelvis Date of Exam: 09/01/24 Exam# [id number] Ordering Dr: Earlene Gillespie MD PROCEDURE: HIPS [...] No fracture or dislocation present. Reading Location: [place] [address] CC: Dr. Inderjit Gillespie MD; Dr. Stas Mora MD ~ Office Technology Instructor: Signed [facility]06-11-2025 NoteHNO ID: [id number] Author: LUCIANA CISNEROS MD Service: ? 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 Additionally, [...] excuse any unintended typographical errors. Recording using [employer] software for draft documentation of the visit was discussed with the patient/authorized instruments sales representative; all questions welcomed and answered. 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 Additionally, [...] excuse any unintended typographical errors. Recording using [employer] software for draft documentation of the visit was discussed with the patient/authorized instruments sales representative; all questions welcomed and answered. 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 Coretta Jalloh [facility] Clinical Pharmacist, Pharmacy Anticoagulation Clinic Pharmacy Anticoagulation Clinic Pager: [phone]. 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 documented in this encounterEast [facility]06-[facility]-2025 Instructions* Patient Instructions* Luciana Cisneros MD [...] if your symptoms change. documented in this encounterEast [facility]06-01-2025 Evaluation note* Diagnosis Onset Date Resolution [...] Unable to ambulate acute August 212024 10:24am [facility] Work Phone: [phone] Telephone encounter Note* Telephone Encounter - Coretta Jalloh RPh - 08/03/2024 11:20 AM EDT I have reviewed the below recommendations and agree with plan. Coretta Jalloh PharmD [facility]05-14-2025 Miscellaneous Notes* Telephone Encounter - Coretta Jalloh RP - 08/03/2024 11:20 AM EDT I have reviewed the below recommendations and agree with plan. Coretta Jalloh PharmD * Telephone Encounter - Adrian HuangIMRSVElana Berry - 08/03/2024 10:57 AM EDT PATIENT CALL Patient called call center regarding missed call. Patient's caregiver called re: returning a call. Read the following to caller: Assessment: INR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 Anticoagulation Episode Summary Anticoagulation Care Providers Provider Role Specialty Phone number Stas Mora MD Referring Family Medicine [phone] Roby Flores is a 88 year old [...] ALLERGIES No Known Allergies Indication for Warfarin: custodial current use of anticoagulant Paroxysmal atrial fibrillation [...] Pharmacy Anticoagulation Clinic Pharmacy Anticoagulation Clinic Pager: [phone]. 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 documented in this encounterEast [facility] Hospital10-14-2024 Telephone encounter Note * Telephone Encounter - Jenna Fitzpatrick APRN.CNP - 01/04/2024 10:41 AM EDT The following approved medication requests have been transmitted electronically. Requested Prescriptions Signed Prescriptions Disp Refills warfarin (COUMADIN) 3 mg tablet 30 tablet 11 Sig: Take 1 tablet by mouth daily as directed. Authorizing Provider: JENNA FITZPATRICK APRN.CNP [facility]10-14-[facility] Miscellaneous Notes* Telephone Encounter - Jenna Fitzpatrick APRN.CNP - 01/04/2024 10:41 AM EDT The following approved medication requests have been transmitted electronically. Requested Prescriptions Signed Prescriptions Disp Refills warfarin (COUMADIN) 3 mg tablet 30 tablet 11 Sig: Take 1 tablet by mouth daily as directed. Authorizing Provider: JENNA FITZPATRICK APRN.CUSTOMER ACQUISITION MANAGER * Telephone Encounter - Oliva Westbrook LPN - 01/04/2024 9:33 AM EDT Patient significant other Maria Guadalupe calling asking for a warfarin 3 mg rx to be sent to [facility]. Heis taking 3 mg daily and has 1 mg tablets and 2.5 mg tablets. He keeps running out of the 1 mg every 10 days and pharmacy asking for another rx. Pending rx needs completed. Please advise documented in this encounterEast [facility] Hospital10-14-2024 Telephone encounter Note * Telephone Encounter - Oliva Westbrook LPN - 01/04/2024 9:33 AM EDT Patient significant other Maria Guadalupe calling asking for a warfarin 3 mg rx to be sent to [facility]. Heis taking 3 mg daily and has 1 mg tablets and 2.5 mg tablets. He keeps running out of the 1 mg every 10 days and pharmacy asking for another rx. Pending rx needs completed. Please advise [facility]10-[facility] Telephone encounter Note* Telephone Encounter - Elise Paredes RP - 12/24/2023 2:29 PM EDT [facility] Antico[facility] Clinic Anticoagulation Episode Summary Anticoagulation Care Providers Provider Role Specialty Phone number Stas Mora MD Referring Family Medicine [phone] Roby Flores is a 88 year old [...] ALLERGIES No Known Allergies Indication for Warfarin: custodial current use of anticoagulant Paroxysmal atrial fibrillation [...] Pharmacy Anticoagulation Clinic Pharmacy Anticoagulation Clinic Pager: [phone]. [facility] Miscellaneous Notes* Telephone Encounter - Elise Paredes RPh - 12/24/2023 2:29 PM EDT [facility] Clinic Anticoagulation Episode Summary Anticoagulation Care Providers Provider Role Specialty Phone number Stas Mora MD Referring Family Medicine [phone] Roby Flores is a 88 year old [...] ALLERGIES No Known Allergies Indication for Warfarin: custodial current use of anticoagulant Paroxysmal atrial fibrillation [...] Pharmacy Anticoagulation Clinic Pharmacy Anticoagulation Clinic Pager: [phone]. 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 Clinical Pharmacist, Pharmacy Anticoagulation Clinic Pharmacy Anticoagulation Clinic Pager: [phone]. [facility]09-19-20[facility] Miscellaneous Notes* Telephone Encounter - Elise Paredes RPh - 12/10/2023 2:13 PM EDT [facility] Antico[facility] Clinic Anticoagulation Episode Summary Anticoagulation Care Providers Provider Role Specialty Phone number Stas Mora MD Referring Family Medicine [phone] Roby Flores is a 88 year old [...] ALLERGIES No Known Allergies Indication for Warfarin: custodial current use of anticoagulant Paroxysmal atrial fibrillation (hcc) Anticoagulation Episode Summary Current INR goal: 2.0-3.0 Assessment: INR result of 1.9 is SUBtherapeutic due to: unknown cause - did not speak to patient Plan: Current Warfarin Dosing As of 12/10/2023 Full warfarin instructions: 2.5 mg every Sun; 3 mg all other days Left voice message for Gabby at [phone] (home) Advised patient to increase total weekly regimen Next lab INR check scheduled on 12/24/2023 Elise Paredes RPh Clinical Pharmacist, Pharmacy Anticoagulation Clinic Pharmacy Anticoagulation Clinic Pager: [phone]. documented in this encounterEast [facility]09-05-2024 Telephone encounter Note * Telephone Encounter - Elise Paredes RPh - 11/26/2023 4:32 PM EDT [facility] Anticoagulation Episode Summary Anticoagulation Care Providers Provider Role Specialty Phone number Stas Mora MD Referring Family Medicine [phone] Roby Flores is a 88 year old [...] ALLERGIES No Known Allergies Indication for Warfarin: custodial current use of anticoagulant Paroxysmal atrial fibrillation [...] Pharmacy Anticoagulation Clinic Pharmacy Anticoagulation Clinic Pager: [phone]. 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 Elise Paredes [facility] Clinical Pharmacist, Pharmacy Anticoagulation Clinic Pharmacy Anticoagulation Clinic Pager: [phone]. * Telephone Encounter - Satish HuangIMRSVParmjit Berry - 11/26/2023 4:26 PM EDT Patient's spouse called regarding message. Patient typically takes warfarin in the morning but did not take any today. Patient's spouse doesn't understand why its low all the sudden. Denies changes in medication/ diet or missed doses. Call transferred to [facility] Parmjit Covarrubias [employer] Motel Manager (veterans service representative) Pharmacy Anticoagulation Clinic * Telephone Encounter - Elise Paredes 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 [facility] Clinical Pharmacist, Pharmacy Anticoagulation Clinic Pharmacy Anticoagulation Clinic Pager: [phone]. documented in this encounterEast [facility]09-[facility] Telephone encounter Note * Telephone Encounter - Satish HuangPoultry Dressing WorkerParmjit Berry - 11/26/2023 4:26 PM EDT Patient's spouse called regarding message. Patient typically takes warfarin in the morning but did not take any today. Patient's spouse doesn't understand why its low all the sudden. Denies changes in medication/ diet or missed doses. Call transferred to [facility] Parmjit Covarrubias, Recreational Facilities Motel Manager (veterans service representative) Pharmacy Anticoagulation Clinic [facility]09-05-[facility] Telephone encounter Note* Telephone Encounter - Elise Paredes [facility] - 11/26/2023 4:21 PM EDT [facility] Amb[facility] Anticoagulation Episode Summary Anticoagulation Care Providers Provider Role Specialty Phone number Stas Mora MD Referring Family Medicine [phone] Roby Flores is a 88 year old [...] ALLERGIES No Known Allergies Indication for Warfarin: custodial current use of anticoagulant Paroxysmal atrial fibrillation [...] Pharmacy Anticoagulation Clinic Pharmacy Anticoagulation Clinic Pager: [phone]. [facility] History of Present illness Narrative* Stas [...] Coronary atherosclerosis of unspecified type of vessel, o[place] or graft Comment: Coronary artery disease No [...] Past Histories independently gathered by the clinical legal support manager and the remaining scribed note [...] AM. Rosie Cruz MA documented in this encounterEast [facility] Hospital08-28-2024 Telephone encounter Note * Telephone Encounter - Coretta Jalloh [facility] - 11/18/2023 4:30 PM EDT [facility] Anticoagulation Episode Summary Anticoagulation Care Providers Provider Role Specialty Phone number Stas Mora MD Referring Family Medicine [phone] Roby Flores is a 88 year old [...] ALLERGIES No Known Allergies Indication for Warfarin: custodial current use of anticoagulant Paroxysmal atrial fibrillation [...] Pharmacy Anticoagulation Clinic Pharmacy Anticoagulation Clinic Pager: [phone]. [facility]08-28-[facility] Miscellaneous Notes* Telephone Encounter - Coretta Jalloh RPh - 11/18/2023 4:30 PM EDT [facility] Amb[facility] An[facility] Clinic Anticoagulation Episode Summary Anticoagulation Care Providers Provider Role Specialty Phone number Stas Mora MD Referring Family Medicine [phone] Roby Flores is a 88 year old [...] ALLERGIES No Known Allergies Indication for Warfarin: custodial current use of anticoagulant Paroxysmal atrial fibrillation [...] Pharmacy Anticoagulation Clinic Pharmacy Anticoagulation Clinic Pager: [phone]. documented in this encounterEast [facility] Hospital08-26-2024 Telephone encounter Note * Telephone Encounter - Caio, Elvis, PRINTING SCREEN ASSEMBLER.CUSTOMER ACQUISITION MANAGER - 11/16/2023 9:39 AM EDT The following approved medication requests have been transmitted electronically. Requested Prescriptions Pending Prescriptions Disp Refills warfarin (COUMADIN) 1 mg tablet 30 tablet 5 Sig: Take 1 tablet by mouth once daily. Elvis Kearney APRN.CNP [facility]08-26-[facility]24 Miscellaneous Notes* Telephone Encounter - Elvis [...] 16, 2023 9:00 AM documented in this encounterEast [facility] Hospital08-26-2024 Telephone encounter Note * Telephone Encounter [...] Shahid MA November 16, 2023 9:06 AM [facility]-26[facility] Telephone encounter Note* Telephone Encounter - [...] Keke Rinaldi November 16, 2023 9:00 AM [facility]07-24-[facility] Telephone encounter Note* Telephone Encounter - Coretta Jalloh Enrique - 10/14/2023 4:21 PM EDT [facility] Anticoagulation Episode Summary Anticoagulation Care Providers Provider Role Specialty Phone number Stas Mora MD Referring Family Medicine [phone] Roby Flores is a 88 year old [...] ALLERGIES No Known Allergies Indication for Warfarin: custodial current use of anticoagulant Paroxysmal atrial fibrillation [...] Pharmacy Anticoagulation Clinic Pharmacy Anticoagulation Clinic Pager: [phone]. 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 documented in this encounterEast [facility] Hospital06-26-2024 Telephone encounter Note * Telephone Encounter - Colleen Sommer RPh - 09/16/2023 11:15 AM EDT [facility] Anticoagulation Episode Summary Anticoagulation Care Providers Provider Role Specialty Phone number Stas Mora MD Referring Family Medicine [phone] Roby Flores is a 88 year old [...] Pharmacy Anticoagulation Clinic Pharmacy Anticoagulation Clinic Pager: [phone]. [facility]06-[facility] Miscellaneous Notes* Telephone Encounter - Colleen Sommer RPh - 09/16/2023 11:15 AM EDT [facility] Amb[facility] An[facility] Clinic Anticoagulation Episode Summary Anticoagulation Care Providers Provider Role Specialty Phone number Stas Mora MD Referring Family Medicine [phone] Roby Flores is a 88 year old [...] Pharmacy Anticoagulation Clinic Pharmacy Anticoagulation Clinic Pager: [phone]. documented in this encounterEast [facility] Hospital06-25-2024 Instructions* Patient Instructions* Rosie Cruz MA - 09/15/2023 8:48 AM EDT Starting Lasix (Furosemide) 20 mg once daily as needed. You can use the medication on days where swelling is increased. Elevate legs through out the day to help with swelling. Decrease sodium in diet. documented in this encounterEast [facility] Hospital06-25-2024 History of Present illness Narrative* Stas [...] Coronary atherosclerosis of unspecified type of vessel, omaha or graft Coronary artery disease Other and [...] Past Histories independently gathered by the clinical legal support manager and the remaining scribed note [...] AM. Rosie Cruz MA documented in this encounterEast [facility] Hospital06-24-2024 Telephone encounter Note * Telephone Encounter [...] difficulty breathing Protocols used: Leg Swelling and [id number] [facility]06-24-[facility] Miscellaneous Notes* Telephone Encounter - Marian [...] difficulty breathing Protocols used: Leg Swelling and [id number] * Telephone Encounter - Elana Valdes RN - 09/14/2023 2:52 PM EDT Called and left a voicemail for the Patient and on the Pts girlfriends phone to have the Pt call back and ask for a nurse to receive the providers message. We need more information about his bilateral leg swelling that he was scheduled for tomorrow. Elana Valdes RN documented in this encounterEast Liverpool City Hospital06-24-2024 Telephone encounter Note * Telephone Encounter [...] was scheduled for tomorrow. 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 [facility]06[facility] Miscellaneous Notes* Telephone Encounter - Coretta Jalloh RPh - 09/02/2023 3:08 PM EDT [facility] Clinic Anticoagulation Episode Summary Anticoagulation Care Providers Provider Role Specialty Phone number Stas Mora MD Referring Family Medicine [phone] Roby Flores is a 88 year old [...] ALLERGIES No Known Allergies Indication for Warfarin: custodial current use of anticoagulant Paroxysmal atrial fibrillation [...] Pharmacy Anticoagulation Clinic Pharmacy Anticoagulation Clinic Pager: [phone]. 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 [facility] Miscellaneous Notes* Telephone Encounter - Coretta Jalloh RPh - 08/26/2023 5:03 PM EDT [facility] Ambulatory [facility]acy Anticoagulation Clinic Anticoagulation Episode Summary Anticoagulation Care Providers Provider Role Specialty Phone number Stas Mora MD Referring Family Medicine [phone] Roby Flores is a 88 year old [...] ALLERGIES No Known Allergies Indication for Warfarin: custodial current use of anticoagulant Paroxysmal atrial fibrillation [...] Pharmacy Anticoagulation Clinic Pharmacy Anticoagulation Clinic Pager: [phone]. documented in this encounterEast [facility] Hospital05-29-2024 Telephone encounter Note * Telephone Encounter - Coretta Jalloh RPh - 08/19/2023 5:09 PM EDT [facility] Antico[facility] Clinic Anticoagulation Episode Summary Anticoagulation Care Providers Provider Role Specialty Phone number Stas Mora MD Referring Family Medicine [phone] Roby Flores is a 88 year old [...] Pharmacy Anticoagulation Clinic Pharmacy Anticoagulation Clinic Pager: [phone]. [facility]05-[facility] Miscellaneous Notes* Telephone Encounter - Coretta Jalloh RPh - 08/19/2023 5:09 PM EDT [facility] Ambulatory [facility]acy Anticoagulation Clinic Anticoagulation Episode Summary Anticoagulation Care Providers Provider Role Specialty Phone number Stas Mora MD Referring Family Medicine [phone] Roby Flores is a 88 year old [...] Pharmacy Anticoagulation Clinic Pharmacy Anticoagulation Clinic Pager: [phone]. documented in this encounterEast [facility] Hospital05-24-2024 History of Present illness Narrative* Stas [...] thinks he is being sued by a jehovah's witness and thathe was given a letter about it, doesn't know who the journalism internship is or where the jehovah's witness is. states this is not true. He was looking for his brother who lives out of state, thought he was still staying with them, however he has not been up to [place] since Jan. No hallucinations. Is not leaving [...] Coronary atherosclerosis of unspecified type of vessel, omaha or graft Coronary artery disease Other and [...] Past Histories independently gathered by the clinical legal support manager and the remaining scribed note [...] AM. Marta Palacio MA documented in this encounterEast [facility] Hospital05-22-2024 Telephone encounter Note * Telephone Encounter - Coretta Jalloh [facility] - 08/12/2023 4:27 PM EDT [facility] Antico[facility] Clinic Anticoagulation Episode Summary Anticoagulation Care Providers Provider Role Specialty Phone number Stas Mora MD Referring Family Medicine [phone] Roby Flores is a 87 year old [...] ALLERGIES No Known Allergies Indication for Warfarin: custodial current use of anticoagulant Paroxysmal atrial fibrillation [...] Pharmacy Anticoagulation Clinic Pharmacy Anticoagulation Clinic Pager: [phone]. [facility]05-[facility] Miscellaneous Notes* Telephone Encounter - Coretta Jalloh RPh - 08/12/2023 4:27 PM EDT [facility] Ambulatory [facility]acy Anticoagulation Clinic Anticoagulation Episode Summary Anticoagulation Care Providers Provider Role Specialty Phone number Stas Mora MD Referring Family Medicine [phone] Roby Flores is a 87 year old [...] No Known Allergies Indication for Warfarin: 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 Paroxysmal atrial fibrillation [...] Pharmacy Anticoagulation Clinic Pharmacy Anticoagulation Clinic Pager: [phone]. documented in this encounterEast [facility]05-15-2024 Telephone encounter Note * Telephone Encounter - Coretta Jalloh RPh - 08/05/2023 4:41 PM EDT [facility] Anticoagulation Episode Summary Anticoagulation Care Providers Provider Role Specialty Phone number Stas Mora MD Referring Family Medicine [phone] Roby Flores is a 87 year old [...] No Known Allergies Indication for Warfarin: 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 Paroxysmal atrial fibrillation [...] Pharmacy Anticoagulation Clinic Pharmacy Anticoagulation Clinic Pager: [phone]. [facility]05-[facility] Miscellaneous Notes* Telephone Encounter - Coretta Jalloh RPh - 08/05/2023 4:41 PM EDT [facility] Ambulatory [facility]acy Anticoagulation Clinic Anticoagulation Episode Summary Anticoagulation Care Providers Provider Role Specialty Phone number Stas Mora MD Referring Family Medicine [phone] Roby Flores is a 87 year old [...] No Known Allergies Indication for Warfarin: 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 Paroxysmal atrial fibrillation [...] Pharmacy Anticoagulation Clinic Pharmacy Anticoagulation Clinic Pager: [phone]. documented in this encounterEast [facility]05-08-2024 Telephone encounter Note * Telephone Encounter - Elena Lopez RPh - 07/29/2023 3:21 PM EDT [facility] Ambulatory Pharmacy Anticoagulation Clinic Anticoagulation Episode Summary Anticoagulation Care Providers Provider Role Specialty Phone number Stas Mora MD Referring Family Medicine [phone] Roby Flores is a 87 year old [...] ALLERGIES No Known Allergies Indication for Warfarin: custodial current use of anticoagulant Paroxysmal atrial fibrillation [...] Pharmacy Anticoagulation Clinic Pharmacy Anticoagulation Clinic Pager: [phone]. [facility]05-[facility] Miscellaneous Notes* Telephone Encounter - Elena Lopez RPh - 07/29/2023 3:21 PM EDT [facility] Ambulatory [facility]acy Anticoagulation Clinic Anticoagulation Episode Summary Anticoagulation Care Providers Provider Role Specialty Phone number Stas Mora MD Referring Family Medicine [phone] Roby Flores is a 87 year old [...] ALLERGIES No Known Allergies Indication for Warfarin: custodial current use of anticoagulant Paroxysmal atrial fibrillation [...] Patient denies need for refills. Elena Lopez [facility] Clinical Pharmacist, Pharmacy Anticoagulation Clinic Pharmacy Anticoagulation Clinic Pager: [phone]. documented in this encounterEast [facility]05-01-2024 Telephone encounter Note * Telephone Encounter - Coretta Jalloh RP - 07/22/2023 4:40 PM EDT [facility] Ambulatory [facility] Anticoagulation Clinic Anticoagulation Episode Summary Anticoagulation Care Providers Provider Role Specialty Phone number Stas Mora MD Referring Family Medicine [phone] Roby Flores is a 87 year old [...] ALLERGIES No Known Allergies Indication for Warfarin: custodial current use of anticoagulant Paroxysmal atrial fibrillation [...] Pharmacy Anticoagulation Clinic Pharmacy Anticoagulation Clinic Pager: [phone]. [facility]05-01[facility] Miscellaneous Notes* Telephone Encounter - Coretta Jalloh RPh - 07/22/2023 4:40 PM EDT [facility] Anticoagulation Clinic Anticoagulation Episode Summary Anticoagulation Care Providers Provider Role Specialty Phone number Stas Mora MD Referring Family Medicine [phone] Roby Flores is a 87 year old [...] ALLERGIES No Known Allergies Indication for Warfarin: custodial current use of anticoagulant Paroxysmal atrial fibrillation [...] Pharmacy Anticoagulation Clinic Pharmacy Anticoagulation Clinic Pager: [phone]. documented in this encounterEast [facility]04-24-2024 Telephone encounter Note * Telephone Encounter - Coretta Jalloh RPh - 07/15/2023 3:18 PM EDT [facility]ulatory [facility] Anticoagulation Clinic Anticoagulation Episode Summary Anticoagulation Care Providers Provider Role Specialty Phone number Stas Mora MD Referring Family Medicine [phone] Roby Flores is a 87 year old [...] ALLERGIES No Known Allergies Indication for Warfarin: custodial current use of anticoagulant Paroxysmal atrial fibrillation [...] Pharmacy Anticoagulation Clinic Pharmacy Anticoagulation Clinic Pager: [phone]. [facility]04-[facility] Miscellaneous Notes* Telephone Encounter - Coretta Jalloh RPh - 07/15/2023 3:18 PM EDT [facility] Ambulatory [facility]acy Anticoagulation Clinic Anticoagulation Episode Summary Anticoagulation Care Providers Provider Role Specialty Phone number Stas Mora MD Referring Family Medicine [phone] Roby Flores is a 87 year old [...] ALLERGIES No Known Allergies Indication for Warfarin: custodial current use of anticoagulant Paroxysmal atrial fibrillation [...] Pharmacy Anticoagulation Clinic Pharmacy Anticoagulation Clinic Pager: [phone]. 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 documented in this encounterEast [facility]04-10-2024 Miscellaneous Notes* Telephone Encounter - Coretta Jalloh RPh - 07/01/2023 5:20 PM EDT [facility] Ambulatory Pharmacy Anticoagulation Clinic Anticoagulation Episode Summary Anticoagulation Care Providers Provider Role Specialty Phone number Stas Mora MD Referring Family Medicine [phone] Roby Flores is a 87 year old [...] ALLERGIES No Known Allergies Indication for Warfarin: custodial current use of anticoagulant Paroxysmal atrial fibrillation [...] Pharmacy Anticoagulation Clinic Pharmacy Anticoagulation Clinic Pager: [phone]. documented in this encounterEast [facility]04-04-2024 Telephone encounter Note * Telephone Encounter - Adrian HuangIMRSV)Elana - 06/25/2023 5:14 PM EDT Images from [...] and remains on Remote TM list. Elana HuangIMRSV) [facility]04-04-2024 Miscellaneous Notes* Telephone Encounter - Adrian HuangIMRSVElana Berry - 06/25/2023 5:14 PM EDT Images [...] remains on Remote TM list. Elana Campbell (Poultry Dressing Worker) * Telephone Encounter - Stas Mora MD - 06/25/2023 4:44 PM EDT It looks like my office became involved because the on-call doctor was called with his elevated INR. I would prefer he stay with the pharmacy for his routine monitoring. Stas Mora MD * Telephone Encounter - Adrian (Poultry Dressing Worker)Elana - 06/25/2023 4:03 PM EDT Pharm Phone [...] this time Please advise. Elana Campbell CPhT (Recreational Facilities Motel Manager) Pharmacy Anticoagulation Clinic documented in this encounterEast [facility] Hospital04-04-2024 Telephone encounter Note * Telephone Encounter - Stas Mora MD - 06/25/2023 4:44 PM EDT It looks like my office became involved because the on-call doctor was called with his elevated INR. I would prefer he stay with the pharmacy for his routine monitoring. Stas Mora MD [facility]04-04-20[facility] Telephone encounter Note* Telephone Encounter - Adrian (Poultry Dressing Worker)Elana - 06/25/2023 4:03 PM EDT Pharm Phone [...] this time Please advise. Elana Campbell CPhT (Recreational Facilities Motel Manager) Pharmacy Anticoagulation Clinic [facility]04-03-2024 Miscellaneous Notes* Telephone Encounter - Jason [...] with VKA drugs, such as warfarin, the [place] [employer] 2012 Guideline recommends [...] Chest 2012, 141:7S-47S Avel RA, et al. [facility] 2017, 70: 252-289 Confirmed that pt is taking 1 mg daily. No changes to diet, medications, missed or extra doses, etc. Keke Tsang MA documented in this encounterEast [facility] Hospital03-22-2024 Miscellaneous Notes* Telephone Encounter - Marta Palacio MA - 06/12/2023 11:21 AM EDT Gabby notified and voiced understanding. Tracker and med list updated. Marta Palacio MA * Telephone Encounter - Luz Elena Giraldo APRN.CNP - 06/12/2023 9:39 AM EDT Continue current Coumadin dose, recheck again in 2 weeks. Luz Elena Kristal, PRINTING SCREEN ASSEMBLER.CUSTOMER ACQUISITION MANAGER * Telephone Encounter - Rosie Cruz Ma - 06/11/2023 4:24 PM EDT Last INR: PT INR 2.2 06/11/2023 Current dose of coumadin is: 1 mg daily. Last date of dose change: 06/08/23. Previous INR (date and result): 3.2 on 06/08/23 Additional Clinical Information or narrative: no Rosie Cruz Ma documented in this encounterEast [facility] Hospital03-18-2024 Miscellaneous Notes* Telephone Encounter - Keke [...] Information or narrative: no documented in this encounterEast [facility] Hospital03-15-2024 Miscellaneous Notes* Telephone Encounter - Halina [...] went over notes below from Jenna Fitzpatrick ZINC FURNACE CHARGER. She said no change in his diet, [...] without answer. INR was 6.9. Jenna Fitzpatrick APRN.CUSTOMER ACQUISITION MANAGER documented in this encounterEast [facility] Hospital03-15-2024 Miscellaneous Notes* Telephone Encounter - Marta Palacio MA - 06/05/2023 10:15 AM EDT See phone note 06/05/23 with Jenna Fitzpatrick. Marta Palacio MA * Telephone Encounter - Jasmin Bell MD - 06/04/2023 7:59 PM EDT Been trying to call patient at numbers give and goes straight to . Sending Noveporter message in case will see that sooner. After multiple attempts, I called [facility]. They cannot call the patient but if the patient calls them, they will conference call with me. documented in this encounterEast [facility] Hospital03-15-2024 Miscellaneous Notes* Telephone Encounter - Marta [...] message on daughter Anabella's mobile. Sent a Noveporter message too. Called [facility] and the will conference call me if patient calls them. documented in this encounterEast [facility] Hospital03-14-2024 Miscellaneous Notes* Telephone Encounter - Hortencia Winston RN - 06/04/2023 8:[address] Bell has left messages for the patient to call back regarding a critical lab. documented in this encounterEast [facility] Hospital03-14-2024 Miscellaneous Notes* Telephone Encounter - Minda [...] Alfaro LPN * Telephone Encounter - Jenna iFtzpatrick APRN.CUSTOMER ACQUISITION MANAGER - 06/04/2023 11:37 AM EDT Can you [...] has any questions. Thank you. Jenna Fitzpatrick APRN.CUSTOMER ACQUISITION MANAGER documented in this encounterEast [facility] Hospital03-13-2024 Miscellaneous Notes* Telephone Encounter - Coretta Jalloh 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 documented in this encounter[facility] History of Present illness Narrative* Stas [...] Coronary atherosclerosis of unspecified type of vessel, omaha or graft Coronary artery disease Other and [...] unspecified vessel or lesion type, unspecified whether omaha or transplanted heart - ICD9: 414.00, ICD10: [...] Past Histories independently gathered by the clinical legal support manager and the remaining scribed note [...] PM. Marta Palacio MA documented in this encounterEast [facility]03-[facility]24 Miscellaneous Notes* Telephone Encounter - Coretta Jalloh [facility] - 05/27/2023 2:23 PM EST [facility] Anticoagulation Episode Summary Anticoagulation Care Providers Provider Role Specialty Phone number Stas Mora MD Referring Family Medicine [phone] Roby Flores is a 87 year old year old male patient being evaluated today for a [facility] Anticoagulation Episode Summary Anticoagulation Care Providers Provider Role Specialty Phone number Stas Mora MD Referring Family Medicine [phone] Roby Flores is a 87 year old [...] No Known Allergies Indication 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 documented in this encounterEast [facility]02-28-2024 Miscellaneous Notes* Telephone Encounter - Coretta Jalloh RPh - 05/20/2023 2:36 PM EST [facility] Clinic Anticoagulation Episode Summary Anticoagulation Care Providers Provider Role Specialty Phone number Stas Mora MD Referring Family Medicine [phone] Roby Flores is a 87 year old [...] ALLERGIES No Known Allergies Indication for Warfarin: custodial current use of anticoagulant Paroxysmal atrial fibrillation [...] Pharmacy Anticoagulation Clinic Pharmacy Anticoagulation Clinic Pager: [phone]. documented in this encounterEast [facility]02-21-2024 Miscellaneous Notes* Telephone Encounter - Senia Phillips RPh - 05/13/2023 4:06 PM EST [facility] Anticoagulation Episode Summary Anticoagulation Care Providers Provider Role Specialty Phone number Stas Mora MD Referring Family Medicine [phone] Roby Flores is a 87 year old [...] ALLERGIES No Known Allergies Indication for Warfarin: custodial current use of anticoagulant Paroxysmal atrial fibrillation [...] Pharmacy Anticoagulation Clinic Pharmacy Anticoagulation Clinic Pager: [phone]. 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 documented in this encounterEast [facility]02-07-2024 Miscellaneous Notes* Telephone Encounter - Coretta Jalloh RPh - 04/29/2023 4:00 PM EST [facility] Anticoagulation Episode Summary Anticoagulation Care Providers Provider Role Specialty Phone number Stas Mora MD Referring Family Medicine [phone] Roby Flores is a 87 year old [...] No Known Allergies Indication for Warfarin: 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 Paroxysmal atrial fibrillation [...] Pharmacy Anticoagulation Clinic Pharmacy Anticoagulation Clinic Pager: [phone]. documented in this encounterEast [facility] Hospital12-01-2023 Miscellaneous Notes* Telephone Encounter - Elise Paredes RPh - 02/20/2023 3:37 PM EST [facility] Anticoagulation Episode Summary Anticoagulation Care Providers Provider Role Specialty Phone number Stas Mora MD Referring Family Medicine [phone] Roby Flores is a 87 year old [...] No Known Allergies Indication for Warfarin: 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 Paroxysmal atrial fibrillation [...] Patient denies need for refills. Elise Paredes RP Clinical Pharmacist, Pharmacy Anticoagulation Clinic Pharmacy Anticoagulation Clinic Pager: [phone]. documented in this encounterEast [facility] Hospital11-28-2023 Miscellaneous Notes* Telephone Encounter - Franca [...] evaluation Stas Mora MD documented in this encounterEast [facility] Hospital11-28-2023 History of Present illness Narrative* Janelle [...] 17, 2023 7:43 AM documented in this encounterEast [facility]11-27-2023 History of Present illness Narrative* Stas Mora MD - 02/16/2023 2:00 PM EST Chief Complaint Patient presents with: ED Follow-up HPI Roby Flores is a 87 year old male who presents here today for ER Follow Up.. Pt went to the [facility] ER on 02/10/23 with c/o fatigue, weakness, [...] Recheck in 1 week. Below copied from [employer]: Chief Complaint: Fatigue Informant: patient Onset/Context/Timing Onset: [...] Coronary atherosclerosis of unspecified type of vessel, omaha or graft Coronary artery disease Other and [...] Completed Pneumococcal Vaccine: 65+ Completed Data reviewed [facility] ER reports 02/10/23 ASSESSMENT/PLAN: 1. Cerebral infarction, [...] Past Histories independently gathered by the clinical legal support manager and the remaining scribed note [...] PM. Marta Palacio Ma documented in this encounterEast [facility] City Hospital11-24-2023 Miscellaneous Notes* Telephone Encounter - Elise Paredes RPh - 02/13/2023 3:56 PM EST [facility] Pharmacy Anticoagulation Clinic Anticoagulation Episode Summary Anticoagulation Care Providers Provider Role Specialty Phone number Stas Mora MD Referring Family Medicine [phone] Roby Flores is a 87 year old [...] ALLERGIES No Known Allergies Indication for Warfarin: custodial current use of anticoagulant Paroxysmal atrial fibrillation [...] INR check scheduled on 02/20/[address] [facility] Clinical Pharmacist, Pharmacy Anticoagulation Clinic Pharmacy Anticoagulation Clinic Pager: [phone]. documented in this encounterEast [facility] Hospital11-17-2023 Miscellaneous Notes* Telephone Encounter - Senia Phillips [facility] - 02/06/2023 4:28 PM EST [facility] Anticoagulation Episode Summary Anticoagulation Care Providers Provider Role Specialty Phone number Stas Mora MD Referring Family Medicine [phone] Roby Flores is a 87 year old [...] ALLERGIES No Known Allergies Indication for Warfarin: custodial current use of anticoagulant Paroxysmal atrial fibrillation [...] Pharmacy Anticoagulation Clinic Pharmacy Anticoagulation Clinic Pager: [phone]. 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 documented in this encounterEast [facility] Hospital09-29-2023 Miscellaneous Notes* Telephone Encounter - Senia Phillips RPh - 12/19/2022 4:30 PM EDT [facility] Anticoagulation Episode Summary Anticoagulation Care Providers Provider Role Specialty Phone number Stas Mora MD Referring Family Medicine [phone] Roby Flores is a 87 year old [...] ALLERGIES No Known Allergies Indication for Warfarin: custodial current use of anticoagulant Paroxysmal atrial fibrillation (hcc) Anticoagulation Episode Summary Current INR goal: 2.0-3.0 Assessment: INR result of 2.0 is therapeutic Plan: Current Warfarin Dosing As of 12/19/2022 Full warfarin instructions: 2.5 mg every day Sent BaubleBar message Advised patient to continue current weekly dose as noted above Next lab INR check scheduled on 01/02/2023 Senia Phillips RPh Clinical Pharmacist, Pharmacy Anticoagulation Clinic Pharmacy Anticoagulation Clinic Pager: [phone]. documented in this encounterEast [facility] Hospital09-22-2023 Miscellaneous Notes* Telephone Encounter - Senia Phillips RPh - 12/12/2022 4:01 PM EDT [facility] Anticoagulation Episode Summary Anticoagulation Care Providers Provider Role Specialty Phone number Stas Mora MD Referring Family Medicine [phone] Roby Flores is a 87 year old [...] ALLERGIES No Known Allergies Indication for Warfarin: custodial current use of anticoagulant Paroxysmal atrial fibrillation [...] Patient denies need for refills. Senia Phillips [facility] Clinical Pharmacist, Pharmacy Anticoagulation Clinic Pharmacy Anticoagulation Clinic Pager: [phone]. documented in this encounterEast [facility] City Hospital09-01-2023 Miscellaneous Notes* Telephone Encounter - Jeimy Duong RPh - 11/21/2022 2:38 PM EDT [facility] Anticoagulation Episode Summary Anticoagulation Care Providers Provider Role Specialty Phone number Stas Mora MD Referring Family Medicine [phone] Roby Flores is a 87 year old [...] Pharmacy Anticoagulation Clinic Pharmacy Anticoagulation Clinic Pager: [phone]. documented in this encounterEast [facility] Hospital08-28-2023 Hospital Discharge instructions Patient Education 11/17/2022 [...] Wound changes colors Numbness around the wound [id number] [employer]. [address] [place] [address], [place] [address]. All rights reserved. This information is not [...] the ears or bruising around the eyes 8199-5915 [employer]. [address] [place] [address], [place] [address]. All rights reserved. This information is not intended as a substitute for professional medical care. Always follow yourhealthcare professional's instructions. Follow Up Care 11/17/2022 15:05:08 With:Call Physician Referral Address:Unknown When:2-4 days [facility] Traceydevin Graham 08-28-2023 Note Discharge Instructions Thank you for allowing [facility] to assist you with your healthcare needs. [...] Wound changes colors Numbness around the wound [phone] [employer] [address] [facility], [place] [address]. All rights reserved. This information is not [...] the ears or bruising around the eyes [phone] [employer]. [address] [place] [address], [place] [address]. All rights reserved. This information is not intended as a substitute for professional medical care. Always follow yourhealthcare professional's instructions. Additional Information VACCINATE! IT SAVES LIVES! Members of the community who have not yet received the COVID-19 vaccine and would like to receive it can visit one of [facility] vaccine clinics. There are many vaccine clinic locations within the [facility]. For locations and available times, please visit [email or web address].[email or web address]/. It is important to note that some COVID mobile vaccine clinics are held outdoors and may be canceled in rainy or stormy conditions. To learn more about pediatric vaccinations (ages 5-11), we invite you to visit the [facility] webpage. [email or web address]/[email or web address] learn more about the COVID-19 vaccine, we invite you to visit the CDC website for a list of frequently asked questions. https://www.cdc.gov/coronavirus/2019-ncov/vaccines/faq.html [facility] Patient Portal Access Instructions: Stay connected with your healthcare team and access your personal medical information anytime with the [facility] Patient Portal. If you would like a full copy of your medical records please contact the [facility] Medical Records Department Thursday through Thursday between 8a.m. and 4:30p.m. Please follow the directions below to access the portal: 1.Access the email account you provided upon registration to the [facility].2.Look for an invitation email from [facility].3.Open the email and access the invitation link: Accept Invitation to [facility]4.Fill in the required العلي to create your [...] you will allow to register on the [facility] Patient Portal for access to your information. You can also access the [facility] Patient Portal on the 1DayLater. Simply click on "Health Records" under "Speedshape" and then click on the [facility] logo. [...] Call your local pharmacy or go to [email or web address] to find one close to you.3.Make use of household items: Use cat litter or old coffee grounds to dispose medications if other options arenot available. Mix your drugs with these household products, seal them in an airtight container andthrow it into the garbage. Call [facility]: [phone] to be sure your drugs can be [...] aware that I should contact my doctor. Patient/Guest Services Ambassador Signature: Date/Time: Relationship to Patient: Witness Name/Signature: Date/Time: [facility]08-28-2023 Note ORIGINAL EXAMINATION: CT OF [...] Miscellaneous Notes* Telephone Encounter - Senia Phillips [facility] - 11/07/2022 3:22 PM EDT [facility] Clinic Anticoagulation Episode Summary Anticoagulation Care Providers Provider Role Specialty Phone number Stas Mora MD Referring Family Medicine [phone] Roby Flores is a 87 year old [...] ALLERGIES No Known Allergies Indication for Warfarin: custodial current use of anticoagulant Paroxysmal atrial fibrillation (hcc) Anticoagulation Episode Summary Current INR goal: 2.0-3.0 Assessment: INR result of 2.2 is therapeutic Plan: Current Warfarin Dosing As of 11/07/2022 Full warfarin instructions: 2.5 mg every day Sent Bauble[employer] message Advised patient to continue current weekly dose as noted above Next lab INR check scheduled on 11/21/2022 Senia Phillips RPh Clinical Pharmacist, Pharmacy Anticoagulation Clinic Pharmacy Anticoagulation Clinic Pager: [phone]. documented in this encounterEast [facility] Hospital08-11-2023 Miscellaneous Notes* Telephone Encounter - Senia Phillips RPh - 10/31/2022 2:29 PM EDT Patient due to test INR today. Will continue to monitor for results. 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 documented in this encounterEast [facility] Hospital07-28-2023 Miscellaneous Notes* Telephone Encounter - Jason [...] Anticoagulation TE call from today by the [facility] Pharmacy Anticoagulation Clinic. They spoke with pt at [phone] and gave pt instructions on what to do. Halina Castelan, RN documented in this encounterEast [facility] City Hospital07-28-2023 Miscellaneous Notes* Telephone Encounter - Elma Yomi, [facility] - 10/17/2022 3:43 PM EDT [facility] Anticoagulation Clinic Anticoagulation Episode Summary Anticoagulation Care Providers Provider Role Specialty Phone number Stas Mora MD Referring Family Medicine [phone] Roby Flores is a 87 year old [...] ALLERGIES No Known Allergies Indication for Warfarin: custodial current use of anticoagulant Paroxysmal atrial fibrillation [...] Patient denies need for refills. Yomi Wills [facility] Clinical Pharmacist, Pharmacy Anticoagulation Clinic Pharmacy Anticoagulation Clinic Pager: [phone]. documented in this encounterEast [facility] Hospital07-07-2023 Miscellaneous Notes* Telephone Encounter - Jeimy Duong RPh - 09/26/2022 2:11 PM EDT [facility] Clinic Anticoagulation Episode Summary Anticoagulation Care Providers Provider Role Specialty Phone number Stas Mora MD Referring Family Medicine [phone] Roby Flores is a 87 year old [...] Pharmacy Anticoagulation Clinic Pharmacy Anticoagulation Clinic Pager: [phone]. documented in this encounterEast [facility] City Hospital06-23-2023 Miscellaneous Notes* Telephone Encounter - Jeimy Duong RPh - 09/12/2022 2:50 PM EDT [facility] Anticoagulation Episode Summary Anticoagulation Care Providers Provider Role Specialty Phone number Stas Mora MD Referring Family Medicine [phone] Roby Flores is a 87 year old [...] accidental over dosage, changes in warfarin tablet color/shape/pipe liner, eating less green vegetables, recent illness/fever/nausea/vomiting/diarrhea, increased [...] Pharmacy Anticoagulation Clinic Pharmacy Anticoagulation Clinic Pager: [phone]. documented in this encounterEast [facility] City Hospital06-06-2023 Instructions* Patient Instructions* Marta Palacio Hi - 08/26/2022 1:36 PM EDT Please check your medications when you get home and make sure that your medications match our list. documented in this encounterEast [facility] City Hospital06-06-2023 History of Present illness Narrative* Stas Mora MD - 08/26/2022 1:20 PM EDT Medical B eligibilty date 1999 Date of last exam 09/05/2021 PAST MEDICAL HISTORY Diagnosis Date Coronary atherosclerosis of unspecified type of vessel, omaha or graft Coronary artery disease Other and [...] Past Histories independently gathered by the clinical legal support manager and the remaining scribed note accurately describes my personal service to the patient. Stas Mora MD The documentation for this note was completed by Marta Palacio Ma acting as scribe for Stas Mora MD. August 26, 2022 1:17 PM. Marta Palacio Ma documented in this encounterEast Liverpool City Hospital06-02-2023 Miscellaneous Notes* Telephone Encounter - Senairachel Phillips RPh - 08/22/2022 2:50 PM EDT [facility] An[facility] Clinic Anticoagulation Episode Summary Anticoagulation Care Providers Provider Role Specialty Phone number Stas Mora MD Referring Family Medicine [phone] Roby Flores is a 87 year old [...] ALLERGIES No Known Allergies Indication for Warfarin: custodial current use of anticoagulant Paroxysmal atrial fibrillation (hcc) Anticoagulation Episode Summary Current INR goal: 2.0-3.0 Assessment: INR result of 2.4 is therapeutic Plan: Current Warfarin Dosing As of 08/22/2022 Full warfarin instructions: 3.75 mg every Fri; 2.5 mg all other days Sent BaubleBar message Advised patient to continue current weekly dose as noted above Next lab INR check scheduled on 08/29/2022 Senia Phillips RPh Clinical Pharmacist, Pharmacy Anticoagulation Clinic Pharmacy Anticoagulation Clinic Pager: [phone]. 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 documented in this encounterEast [facility] Hospital04-14-2023 Miscellaneous Notes* Telephone Encounter - Lety Brady Juliocesar 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 documented in this encounterEast [facility] Hospital04-03-2023 Miscellaneous Notes* Telephone Encounter - Elvis Kearney APRN.CNP - 06/23/2022 10:17 AM EDT The following approved medication requests have been transmitted electronically. Requested Prescriptions Pending Prescriptions Disp Refills warfarin (COUMADIN) 2.5 mg tablet [Pharmacy Med Name: WARFARIN SODIUM 2.5 MG TABLET] 135 tablet 3 Sig: TAKE 5 MG EVERY MON, DIXIE 2.5 MG ALL OTHER DAYS Elvis Kearney APRN.CNP documented in this encounterEast [facility] Hospital03-31-2023 Miscellaneous Notes* Telephone Encounter - Senia Phillips RPh - 06/20/2022 4:46 PM EDT [facility] An[facility] Clinic Anticoagulation Episode Summary Anticoagulation Care Providers Provider Role Specialty Phone number Stas Mora MD Referring Family Medicine [phone] Roby Flores is a 86 year old [...] ALLERGIES No Known Allergies Indication for Warfarin: custodial current use of anticoagulant Paroxysmal atrial fibrillation [...] Pharmacy Anticoagulation Clinic Pharmacy Anticoagulation Clinic Pager: [phone]. 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 documented in this encounterEast [facility]03-[facility]23 Miscellaneous Notes* Telephone Encounter - Neeru Rice LPN - 05/30/2022 3:02 PM EST Pharmacists manage INR documented in this encounterEast [facility] Hospital03-02-2023 Miscellaneous Notes* Telephone Encounter - Halina [...] you. Jenna Fitzpatrick APRN.SHEMAR documented in this encounterEast [facility] Hospital03-01-2023 Miscellaneous Notes* Telephone Encounter - Judy [...] hip/leg 10. : na Protocols used: Hip Dglo-TAASK-TB, Hip Pyifsc-GKBZR-KR documented in this encounterEast [facility] City Hospital03-01-2023 Miscellaneous Notes* Telephone Encounter - Fani Grace RN - 05/21/2022 12:22 PM EST Patient disconnected during transferred, called multiple time with no answer. documented in this encounterEast [facility] City Hospital02-27-2023 Miscellaneous Notes* Telephone Encounter - Paige [...] instructions. Franca Cohen LPN documented [facility] this [facility]02-24-2023 Miscellaneous Notes* Telephone Encounter - Senia Phillips RPh - 05/16/2022 5:10 PM EST Patient due to test INR today. Will continue to monitor for results. Senia Phillips RPh documented in this encounterEast [facility] Hospital02-10-2023 Miscellaneous Notes* Telephone Encounter - Senia Phillips RPh - 05/02/2022 3:06 PM EST [facility] Anticoagulation Episode Summary Anticoagulation Care Providers Provider Role Specialty Phone number Stas Mora MD Referring Family Medicine [phone] Roby Flores is a 86 year old year old male patient being evaluated today for a Telemanagement visit. Patient is currently on the following anticoagulant(s) Warfarin. Labs PT INR (no units) Date Value 05/15/2021 2.3 04/17/2021 1.9 03/13/2021 Test sent to [facility]. INR (no units) Date Value [...] ALLERGIES No Known Allergies Indication for Warfarin: custodial current use of anticoagulant Paroxysmal atrial fibrillation (hcc) Anticoagulation Episode Summary Current INR goal: 2.0-3.0 Assessment: INR result of 2.1 is therapeutic Plan: Current Warfarin Dosing As of 05/02/2022 Full warfarin instructions: 2.5 mg every day Sent BaubleBar message Advised patient to continue current weekly dose as noted above Next lab INR check scheduled on 05/16/2022 Senia Phillips RPh Clinical Pharmacist, Pharmacy Anticoagulation Clinic Pharmacy An[facility] Pager: [phone]. documented in this encounterEast [facility] City Hospital01-27-2023 Miscellaneous Notes* Telephone Encounter - Senia Phillips RPh - 04/18/2022 4:25 PM EST [facility] Anticoagulation Episode Summary Anticoagulation Care Providers Provider Role Specialty Phone number Stas Mora MD Referring Family Medicine [phone] Roby Flores is a 86 year old year old male patient being evaluated today for a Telemanagement visit. Patient is currently on the following anticoagulant(s) Warfarin. Labs PT INR (no units) Date Value 05/15/2021 2.3 04/17/2021 1.9 03/13/2021 Test sent to [facility]. 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 Clinical Pharmacist, Pharmacy Anticoagulation Clinic Pharmacy Anticoagulation Clinic Pager: [phone]. documented in this encounterEast [facility] Hospital01-13-2023 Miscellaneous Notes* Telephone Encounter - Elise Paredes [facility] - 04/04/2022 4:09 PM EST [facility] Anticoagulation Episode Summary Anticoagulation Care Providers Provider Role Specialty Phone number Stas Mora MD Referring Family Medicine [phone] Roby Flores is a 86 year old year old male patient being evaluated today for a Lab INR. Patient is currently on the following anticoagulant(s) Warfarin. Labs PT INR (no units) Date Value 05/15/2021 2.3 04/17/2021 1.9 03/13/2021 Test sent to [facility]. INR (no units) Date Value [...] ALLERGIES No Known Allergies Indication for Warfarin: custodial current use of anticoagulant Paroxysmal atrial fibrillation [...] getting labs every 2 weeks [address]ise [address]aredes [facility] Clinical Pharmacist, Pharmacy Anticoagulation Clinic Pharmacy Anticoagulation Clinic Pager: [phone]. documented in this encounterEast [facility] City Hospital01-09-2023 Miscellaneous Notes* Telephone Encounter - Rosie Cruz Ma - 03/31/2022 5:12 PM EST Office received continuity of care paperwork from the [place] requesting pt's last OV, labs and Imm. PerPCP okay to fax back requested records. Faxed back to [facility] at F#: [phone]. Rosie Cruz Ma documented in this encounterEast [facility] City Hospital12-30-2022 Miscellaneous Notes* Telephone Encounter - Carmelina Cruz RPh - 03/21/2022 4:05 PM EST [facility] Anticoagulation Episode Summary Anticoagulation Care Providers Provider Role Specialty Phone number Stas Mora MD Referring Family Medicine [phone] Roby Flores is a 86 year old year old male patient being evaluated today for a Telemanagement visit. Patient is currently on the following anticoagulant(s) Warfarin. Labs PT INR (no units) Date Value 05/15/2021 2.3 04/17/2021 1.9 03/13/2021 Test sent to [facility]. 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 * Telephone Encounter - Carmelina Cruz RPh - 03/21/2022 3:12 PM EST Patient due to test INR today. Will continue to monitor for results. Carmelina Cruz RPh documented in this encounterEast [facility] Hospital12-02-2022 Miscellaneous Notes* Telephone Encounter - Oliva [...] whatever he wanted to. documented in this encounterEast [facility] City Hospital10-31-2022 Miscellaneous Notes* Telephone Encounter - Paige Hickman [facility] - 01/20/2022 3:55 PM EDT [facility] Anticoagulation Episode Summary Anticoagulation Care Providers Provider Role Specialty Phone number Stas Mora MD Referring Family Medicine [phone] Royb Flores is a 86 year old year old male patient being evaluated today for a Telemanagement visit. Patient is currently on the following anticoagulant(s) Warfarin. Labs PT INR (no units) Date Value 05/15/2021 2.3 04/17/2021 1.9 03/13/2021 Test sent to [facility]. INR (no units) Date Value [...] instructed to call [facility] at [phone] with any questionsor concerns. Paige Hickman RP Clinical Pharmacist, Pharmacy Anticoagulation Clinic Pharmacy Anticoagulation Clinic Pager: [phone] documented in this encounterEast [facility] City Hospital10-28-2022 Miscellaneous Notes* Telephone Encounter - Senia [...] the providers message. Sent information as a Algoliat message as well. Elana Valdes RN * [...] to contact patient with no answer at [phone]. Current dose of coumadin is: 2.5 mg every day . Previous INR (date and result): 01/03/22 2.4 documented in this encounterEast [facility] City Hospital10-24-2022 Miscellaneous Notes* Telephone Encounter - Jenna [...] advise. López Mckenna LPN documented in this encounterEast [facility] City Hospital10-14-2022 Miscellaneous Notes* Telephone Encounter - Senia Phillips [facility] - 01/03/2022 4:11 PM EDT [facility] Anticoagulation Episode Summary Anticoagulation Care Providers Provider Role Specialty Phone number Stas Mora MD Referring Family Medicine [phone] Roby Flores is a 86 year old year old male patient being evaluated today for a Telemanagement visit. Patient is currently on the following anticoagulant(s) Warfarin. Labs PT INR (no units) Date Value 05/15/2021 2.3 04/17/2021 1.9 03/13/2021 Test sent to [facility]. 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 documented in this encounterEast [facility] City Hospital10-14-2022 Miscellaneous Notes* Telephone Encounter - Marta Palacio Ma - 01/03/2022 10:49 AM EDT Pt notified of results via BaubleBar. Marta Palacio Ma * Telephone Encounter - Stas Mora MD - 01/02/2022 6:07 PM EDT Please notify patient that his thyroid ultrasound looks OK, the nodules are all small, appear normal, and do not need any further evaluation pr follow up. Stas Mora MD documented in this encounterEast [facility] City Hospital10-06-2022 History of Present illness Narrative* Stas Mora MD - 12/26/2021 11:20 AM EDT Chief Complaint Patient presents with: [facility] F[facility]U [facility] Roby Flores is a 86 year [...] about 1-2 hours. Pt was admitted to [facility] ER 12/21/21 with stroke sx however sx [...] in the last year. Below copied from [facility] eXenSa: HPI History of Present Illness Chief Complaint: [...] realized [facility] when she went to check [...] extremities. He has 5 out of 5 retread operator strength bilaterally. Dorsi and plantar flexion [...] Chronic anticoagulation: Status: Acute Code(s): Z79.01 - custodial (current) use of anticoagulants Medications at Discharge [...] symptoms resolved. Hospital Course: 1. TIA/paroxysmal A. [id number] male presented with right-sided weakness and aphasia, [...] Coronary atherosclerosis of unspecified type of vessel, [place] or graft Coronary artery disease Other and [...] 12/06/2024 ADVANCE DIRECTIVE DISCUSSION Completed Data reviewed [facility] reports from 10/21/21-10/22/21 ASSESSMENT/PLAN: 1. Hospital discharge [...] unspecified vessel or lesion type, unspecified whether [place] or transplanted heart - ICD9: 414.00, ICD10: I25.10 Continue current medications. Follow up in Dec as scheduled with fasting labs prior. I agree with the Chief Complaint, ROS, and Past Histories independently gathered by the clinical legal support manager and the remaining scribed note [...] AM. Marta Palacio Ma documented in this encounterEast [facility] Hospital09-30-2022 Miscellaneous Notes* Telephone Encounter - Senia Phillips [facility] - 12/20/2021 4:39 PM EDT [facility] Anticoagulation Episode Summary Anticoagulation Care Providers Provider Role Specialty Phone number Stas Mora MD Referring Family Medicine [phone] Roby Flores is a 86 year old year old male patient being evaluated today for a Telemanagement visit. Patient is currently on the following anticoagulant(s) Warfarin. Labs PT INR (no units) Date Value 05/15/2021 2.3 04/17/2021 1.9 03/13/2021 Test sent to [facility]. INR (no units) Date Value [...] No Known Allergies Indication for Warfarin: 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 Paroxysmal atrial fibrillation (hcc) Anticoagulation Episode Summary Current INR goal: 2.0-3.0 Assessment: INR result of 2.1 is therapeutic Plan: Current Warfarin Dosing As of 12/20/2021 Full warfarin instructions: 2.5 mg every day Sent BaubleBar message Advised patient to continue current weekly dose as noted above Next lab INR check scheduled on 01/03/2022 Senia Phillips RPh Clinical Pharmacist, Pharmacy Anticoagulation Clinic Pharmacy Anticoagulation Clinic Pager: [phone]. documented in this encounterEast Liverpool City Hospital09-16-2022 Miscellaneous Notes* Telephone Encounter - Senia Phillips RPh - 12/06/2021 4:29 PM EDT [facility] Anticoagulation Episode Summary Anticoagulation Care Providers Provider Role Specialty Phone number Stas Mora MD Referring [facility] [phone] Roby Flores is a 86 year old year old male patient being evaluated today for a Telemanagement visit. Patient is currently on the following anticoagulant(s) Warfarin. Labs PT INR (no units) Date Value 05/15/2021 2.3 04/17/2021 1.9 03/13/2021 Test sent to [facility]. INR (no units) Date Value [...] No Known Allergies Indication for Warfarin: 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 Paroxysmal atrial fibrillation [...] Pharmacy Anticoagulation Clinic Pharmacy Anticoagulation Clinic Pager: [phone]. documented in this encounterEast [facility] City Hospital09-02-2022 Miscellaneous Notes* Telephone Encounter - Janice Huang RPh - 11/22/2021 5:17 PM EDT [facility] Anticoagulation Episode Summary Anticoagulation Care Providers Provider Role Specialty Phone number Stas Mora MD Referring [facility] Practice [phone] Roby Flores is a 86 year old year old male patient being evaluated today for a Telemanagement visit. Patient is currently on the following anticoagulant(s) Warfarin. Labs PT INR (no units) Date Value 05/15/2021 2.3 04/17/2021 1.9 03/13/2021 Test sent to [facility]. INR (no units) Date Value [...] ALLERGIES No Known Allergies Indication for Warfarin: custodial current use of anticoagulant Paroxysmal atrial fibrillation [...] Advised pt to Call Coumadin Clinic at [phone] to confirm dosing and follow-up Janice Huang RPh Clinical Pharmacist, Pharmacy Anticoagulation Clinic Pharmacy Anticoagulation Clinic Pager: [phone]. documented in this encounterEast Liverpool City Hospital08-19-2022 Miscellaneous Notes* Telephone Encounter - Senia Phillips RPh - 11/08/2021 5:01 PM EDT [facility] Anticoagulation Episode Summary Anticoagulation Care Providers Provider Role Specialty Phone number Stas Mora MD Referring [facility] [phone] Roby Flores is a 86 year old year old male patient being evaluated today for a Telemanagement visit. Patient is currently on the following anticoagulant(s) Warfarin. Labs PT INR (no units) Date Value 05/15/2021 2.3 04/17/2021 1.9 03/13/2021 Test sent to [facility]. INR (no units) Date Value [...] No Known Allergies Indication for Warfarin: 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 Paroxysmal atrial fibrillation (hcc) Anticoagulation Episode Summary Current INR goal: 2.0-3.0 Assessment: INR result of 2.8 is therapeutic Plan: Current Warfarin Dosing As of 11/08/2021 Full warfarin instructions: 2.5 mg every day Sent BaubleBar message Advised patient to continue current weekly dose as noted above Next lab INR check scheduled on 11/22/2021 Senia Phillips riya Clinical Pharmacist, Pharmacy Anticoagulation Clinic Pharmacy Anticoagulation Clinic Pager: [phone]. documented in this encounterEast [facility] City Hospital08-05-2022 Miscellaneous Notes* Telephone Encounter - Janice Huang RPh - 10/25/2021 4:16 PM EDT [facility] Anticoagulation Episode Summary Anticoagulation Care Providers Provider Role Specialty Phone number Stas Mora MD Referring [facility] [phone] Roby Flores is a 86 year old year old male patient being evaluated today for a Telemanagement visit. Patient is currently on the following anticoagulant(s) Warfarin. Labs PT INR (no units) Date Value 05/15/2021 2.3 04/17/2021 1.9 03/13/2021 Test sent to [facility]. INR (no units) Date Value [...] No Known Allergies Indication for Warfarin: 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 Paroxysmal atrial fibrillation [...] Pharmacy Anticoagulation Clinic Pharmacy Anticoagulation Clinic Pager: [phone] . documented in this encounterEast [facility] City Hospital07-08-2022 Miscellaneous Notes* Telephone Encounter - Elana Campbell (Poultry Dressing Worker) - 09/27/2021 4:50 PM EDT PATIENT CALL Patient called call center regarding results. Patient called and stated he had his INR checked today (09/27) and it was 2.3. Patient can be called at [phone] with any questions or sent MC message if result is within range. PT INR (no units) Date Value 05/15/2021 2.3 04/17/2021 1.9 03/13/2021 Test sent to [facility]. INR (no units) Date Value 09/27/2021 2.3 09/13/2021 2.7 08/30/2021 2.1 Elana Campbell (Poultry Dressing Worker) * Telephone Encounter - Yomi Wills RP - 09/27/2021 6:28 AM EDT Patient due to test INR today. Will continue to monitor for results. Yomi Wills [facility] documented in this encounterEast Liverpool City Hospital06-24-2022 Miscellaneous Notes* Telephone Encounter - Senia Phillips [facility] - 09/13/2021 4:11 PM EDT [facility] Anticoagulation Episode Summary Anticoagulation Care Providers Provider Role Specialty Phone number Stas Mora MD Referring [facility] [phone] Roby Flores is a 86 year old year old male patient being evaluated today for a Telemanagement visit. Patient is currently on the following anticoagulant(s) Warfarin. Labs PT INR (no units) Date Value 05/15/2021 2.3 04/17/2021 1.9 03/13/2021 Test sent to [facility]. INR (no units) Date Value [...] No Known Allergies Indication for Warfarin: 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 Paroxysmal atrial fibrillation (hcc) Anticoagulation Episode Summary Current INR goal: 2.0-3.0 Assessment: INR result of 2.7 is therapeutic Plan: Sent BaubleBar message Advised patient to continue current weekly dose Next lab INR check scheduled on 09/27/2021 Senia Phillips RPh Clinical Pharmacist, Pharmacy Anticoagulation Clinic Pharmacy Anticoagulation Clinic Pager: [phone] . documented in this encounterEast Liverpool City Hospital06-16-2022 History of Present illness Narrative* Stas Mora MD - 09/05/2021 11:20 AM EDT Medical B eligibilty date 1999 Date of last exam 08/28/2020 PAST MEDICAL HISTORY Diagnosis Date Coronary atherosclerosis of unspecified type of vessel, [place] or graft Coronary artery disease Other and [...] [place] every 6 [place]. Pt follows with [facility] Pharm[facility] for Coumadin management. Pt denies any other Specialist. End of Live Planning discussed including patients advanced directive wishes: Yes has both. Daughteris his POA. I am willing to follow [place] advanced directives. Depression screen He in the [...] to remember the following three words: Banana, [place] and Chair Visuospatial/Executive Functioning: Clock drawin/2 (Normal [...] Past Histories independently gathered by the clinical legal support manager and the remaining scribed note accurately describes my personal service to the patient. Stas Mora MD The documentation for this note was completed by Rosie Cruz Ma acting as scribe for Stas Mora MD. September 05, 2021 11:33 AM. Rosie Cruz Ma documented in this encounterEast Liverpool City Hospital06-10-2022 Miscellaneous Notes* Telephone Encounter - Senia Phillips [facility] - 08/30/2021 5:10 PM EDT [facility] Anticoagulation Episode Summary Anticoagulation Care Providers Provider Role Specialty Phone number Stas Mora MD Referring [facility] [phone] Roby Flores is a 86 year old year old male patient being evaluated today for a Telemanagement visit. Patient is currently on the following anticoagulant(s) Warfarin. Labs PT INR (no units) Date Value 05/15/2021 2.3 04/17/2021 1.9 03/13/2021 Test sent to [facility]. INR (no units) Date Value [...] ALLERGIES No Known Allergies Indication for Warfarin: custodial current use of anticoagulant Paroxysmal atrial fibrillation (hcc) Anticoagulation Episode Summary Current INR goal: 2.0-3.0 Assessment: INR result of 2.1 is therapeutic Plan: Sent BaubleBar message Advised patient to continue current weekly dose Next lab INR check scheduled on 09/13/2021 Senia Phillips RPh Clinical Pharmacist, Pharmacy Anticoagulation Clinic Pharmacy Anticoagulation Clinic Pager: [phone] . documented in this encounterEast Liverpool City Hospital06-10-2022 Miscellaneous Notes* Telephone Encounter - Jenna Fitzpatrick APRN.CNP - 08/30/2021 8:56 AM EDT Needs order for PT/INR, order signed. Jenna Fitzpatrick APRN.CNP documented in this encounterEast Liverpool City Hospital05-27-2022 Miscellaneous Notes* Telephone Encounter - Rosie Cruz Ma - 08/16/2021 2:18 PM EDT INR has been reviewed in another encounter. Rosie Cruz Ma documented in this encounterEast Liverpool City Hospital05-13-2022 Miscellaneous Notes* Telephone Encounter - Senia Phillips RPh - 08/02/2021 4:11 PM EDT [facility] Anticoagulation Episode Summary Anticoagulation Care Providers Provider Role Specialty Phone number Stas Mora MD Referring [facility] [phone] Roby Flores is a 85 year old year old male patient being evaluated today for a Telemanagement visit. Patient is currently on the following anticoagulant(s) Warfarin. Labs PT INR (no units) Date Value 05/15/2021 2.3 04/17/2021 1.9 03/13/2021 Test sent to [facility]. 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 documented in this encounterEast Liverpool City Hospital04-27-2022 Miscellaneous Notes* Telephone Encounter - Rosie [...] Please advise patient. * Telephone Encounter - Mrata Palacio Ma - 07/17/2021 11:31 AM EDT [...] months Stas Mora MD documented [facility] Miscellaneous Notes* Telephone Encounter - Elvis Kearney APRN.SHEMAR - 07/15/2021 12:39 PM EDT The following approved medication requests have been transmitted electronically. Pending Prescriptions Disp Refills WARFARIN 2.5 MG TABLET 135 tablet 3 Sig: TAKE 5 MG EVERY MON, DIXIE 2.5 MG ALL OTHER DAYS MESFIN: No Elvis Kearney APRN.SHEMAR documented in this encounter[facility] History of Present illness Narrative* Stas [...] SOB. No swelling in feet orankles. No cop breaker. Taking Fosinopril 10 mg daily. Lipid: Taking [...] Coronary atherosclerosis of unspecified type of vessel, [place] or graft Coronary artery disease Other and [...] unspecified vessel or lesion type, unspecified whether [place] or transplanted heart - ICD9: 414.00, ICD10: [...] Past Histories independently gathered by the clinical legal support manager and the remaining scribed note [...] AM. Marta Palacio Ma documented in this encounterEast [facility]04-13-[facility]22 Miscellaneous Notes* Telephone Encounter - Coretta Jalloh, [facility] - 07/03/2021 3:40 PM EDT [facility] Anticoagulation Episode Summary Anticoagulation Care Providers Provider Role Specialty Phone number Stas Mora MD Referring [facility] Practice [phone] Roby Flores is a 85 year old year old male patient being evaluated today for a Lab INR. Patient is currently on the following anticoagulant(s) Warfarin. Labs PT INR (no units) Date Value 05/15/2021 2.3 04/17/2021 1.9 03/13/2021 Test sent to [facility]. INR (no units) Date Value 07/03/2021 4.5 06/12/2021 3.5 Creatinine (mg/dL) Date Value 03/13/2021 0.80 08/28/2020 0.83 Bilirubin, Total (mg/dL) Date Value 03/13/2021 0.5 ALT (U/L) Date Value 03/13/2021 24 AST (U/L) Date Value 03/13/2021 24 CrCl cannot be calculated (Unknown ideal weight.). ALLERGIES No Known Allergies Indication for Warfarin: custodial current use of anticoagulant Paroxysmal atrial fibrillation [...] Pharmacy Anticoagulation Clinic Pharmacy Anticoagulation Clinic Pager: [phone] . * Telephone Encounter - Marta Palacio Ma - 07/03/2021 3:05 PM EDT INR 4.5. Results routed to pharmacist who Handles pt coumadin. Marta Palacio Ma documented in this encounterEast [facility]03-23-[facility]22 Miscellaneous Notes* Telephone Encounter - Coretta Jalloh RPh - 06/12/2021 3:20 PM EDT [facility] Ambulatory Pharmacy Anticoagulation Clinic Anticoagulation Episode Summary Anticoagulation Care Providers Provider Role Specialty Phone number Stas Mora MD Referring [facility] [phone] Roby Flores is a 85 year old year old male patient being evaluated today for a Lab INR. Patient is currently on the following anticoagulant(s) Warfarin. Labs PT INR (no units) Date Value 05/15/2021 2.3 04/17/2021 1.9 03/13/2021 Test sent to [facility]. INR (no units) Date Value 06/12/2021 3.5 Creatinine (mg/dL) Date Value 03/13/2021 0.80 08/28/2020 0.83 Bilirubin, Total (mg/dL) Date Value 03/13/2021 0.5 ALT (U/L) Date Value 03/13/2021 24 AST (U/L) Date Value 03/13/2021 24 CrCl cannot be calculated (Unknown ideal weight.). 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 Patient verbalizes understanding of the plan. Patient denies need for refills. Coretta Jalloh RPh Clinical Pharmacist, Pharmacy Anticoagulation Clinic Pharmacy Anticoagulation Clinic Pager: [phone] . * Telephone Encounter - Rosie Cruz Ma - 06/12/2021 3:08 PM EDT Pt's INR results have finalized. Routing to pharm to review and advise. Rosie Cruz Ma documented in this encounterEast [facility]12-21-2020 History of Present illness Narrative* Hussein [...] 12, 2020 5:01 PM documented in this encounterEast [facility] summary Author Inderjit Gillespie [facility] Note Date/Time September 01, 2024 10:2 5am [facility] Medical Records Department [address] [place] [address] Emergency Department Summary 09/01/24 MR#: [id number] Acct: [id number] Name: ROBY FLORES Rep #:[id number] : [...] shoulders elbows and wrist. He has normal retread operator strength. Neurologically he is awake alert. [...] 87.5 H Lymph % (Auto) 4.8 L Blount % (Auto) 5.7 Eos % (Auto) 1.2 [...] Clarity Clear Urine pH 8.0 Ur Specific [place] 1.010 Urine Protein 15 H Urine Glucose [...] No fracture or dislocation present. Reading Location: [facility] 09/01/24 09:05 IMPRESSION: Cerebral atrophy. Mucosal thickening of the ethmoid sinuses as well as opacification of the left maxillary sinus. Reading Location: [facility] Chest X-Ray 09/01/24 09:25 IMPRESSION: No acute abnormality is seen. Reading Location: [facility] Chest x-ray, 2 views, AP and [...] failure to thrive Disposition Disposition: Acute Care [facility] What to do if you have Problems For any increased pain, shortness of breath, bleeding, nausea or vomiting, chestpain, or any unexpected problems, contact your Primary Care Provider. Call [facility] ([phone]) or report to the closest Emergency Room. Call 911 if necessary. 09/01/24 1025 <Electronically signed by Inderjit Gillespie MD> Cosigner Signature (if applicable): CC: Dr. Stas Mora MD ~ Signed [facility] Work Phone: Evaluation + Plan note No data available for this section [facility] Evaluation note* Diagnosis custodial current use of anticoagulant- Primary Long-term (current) use of anticoagulants Paroxysmal atrial fibrillation (HCC) Atrial fibrillation documented [facility] this [facility]* Diagnosis custodial current use of anticoagulant- Primary Long-term (current) use of anticoagulants Paroxysmal atrial fibrillation (HCC) Atrial fibrillation documented [facility] this encounter [facility]* Diagnosis Essential hypertension, benign- Primary Atherosclerosis 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, unspecified vessel or lesion type, unspecified whether [place] or transplanted heart Paroxysmal atrial fibrillation (HCC) Atrial fibrillation Primary osteoarthritis of both knees Primary localized osteoarthrosis, lower leg [facility]* Diagnosis Atherosclerosis 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, unspecified vessel or lesion type, unspecified whether [place] or transplanted heart- Primary Essential hypertension, benign [facility]* Diagnosis 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- Primary Long-term (current) use of anticoagulants Paroxysmal atrial fibrillation (HCC) Atrial fibrillation [facility]* Diagnosis Elevated INR- Primary Abnormal coagulation profile documented in this encounter [facility] note* Diagnosis custodial current use of anticoagulant- Primary Long-term (current) use of anticoagulants Paroxysmal atrial fibrillation (HCC) Atrial fibrillation documented in this encounter [facility] note* Diagnosis Encounter for Medicare annual wellness exam- Primary Routine general medical examination at a 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- Primary Long-term (current) use of anticoagulants Paroxysmal atrial fibrillation (HCC) Atrial fibrillation [facility]* Diagnosis custodial current use of anticoagulant- Primary Long-term (current) use of anticoagulants Paroxysmal atrial fibrillation (HCC) Atrial fibrillation documented in this encounter [facility] note* Diagnosis Onset Date Resolution Status Chronic anticoagulation acut e TIA (transient ischemic attack) acute CAD (coronary artery disease) [facility] Work Phone: Evaluation note* Diagnosis Onset Date Resolution Status Chronic anticoagulation acut e Stroke-like symptoms acute TIA (transient ischemic attack) acute CAD (coronary artery disease) [facility] Work Phone: Evaluation note* Diagnosis Hospital discharge follow-up- Primary Other follow-up examination Encounter for immunization Need for other specified prophylactic vaccination against single bacterial disease TIA (transient ischemic attack) Unspecified transient cerebral ischemia Thyroid nodule Nontoxic uninodular goiter Essential hypertension, benign Paroxysmal atrial fibrillation (HCC) Atrial fibrillation Atherosclerosis 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, unspecified vessel or lesion type, unspecified whether [place] or transplanted heart documented in this encounter [facility] note* Diagnosis 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- Primary Long-term (current) use of anticoagulants Paroxysmal atrial fibrillation (HCC) Atrial fibrillation [facility]* Diagnosis custodial current use of anticoagulant- Primary Long-term (current) use of anticoagulants Paroxysmal atrial fibrillation (HCC) Atrial fibrillation [facility] this [facility]* Diagnosis custodial current use of anticoagulant- Primary Long-term (current) use of anticoagulants Paroxysmal atrial fibrillation (HCC) Atrial fibrillation [facility]* Diagnosis Encounter for Medicare annual wellness exam- Primary Routine general medical examination at a [facility] care facility Paroxysmal atrial fibrillation (HCC) Atrial fibrillation Essential hypertension, benign Hyperlipidemia, unspecified hyperlipidemia type [facility]* Diagnosis 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- Primary Long-term (current) use of anticoagulants Paroxysmal atrial fibrillation (HCC) Atrial fibrillation [facility] this [facility]* Diagnosis 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- Primary Long-term (current) use of anticoagulants Paroxysmal atrial fibrillation (HCC) Atrial fibrillation [facility]* Diagnosis custodial current use of anticoagulant- Primary Long-term (current) use of anticoagulants Paroxysmal atrial fibrillation (HCC) Atrial fibrillation [facility]* Diagnosis custodial current use of anticoagulant- Primary Long-term (current) use of anticoagulants Paroxysmal atrial fibrillation (HCC) Atrial fibrillation [facility] noteNo assessment information availableWCincinnati [facility] Work Phone: Evaluation note* Diagnosis 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- Primary Long-term (current) use of anticoagulants Paroxysmal atrial fibrillation (HCC) Atrial fibrillation documented in this [facility]* Diagnosis Cerebral infarction, unspecified mechanism (HCC)- Primary Generalized weakness Other malaise and fatigue Speech disturbance, unspecified type Hyperlipidemia, unspecified hyperlipidemia type Essential hypertension, benign Paroxysmal atrial fibrillation (HCC) Atrial fibrillation [facility]* Diagnosis Cerebral infarction, unspecified mechanism (HCC) documented in this [facility]* Diagnosis 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- Primary Long-term (current) use of anticoagulants Paroxysmal atrial fibrillation (HCC) Atrial fibrillation [facility]* Diagnosis Essential hypertension, benign- Primary Paroxysmal atrial fibrillation (HCC) Atrial fibrillation Atherosclerosis 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, unspecified vessel or lesion type, unspecified whether [place] or transplanted heart Hyperlipidemia, unspecified hyperlipidemia type History of stroke with 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 Speech disturbance, unspecified type [facility] Abnormal CBC- Primary Other abnormal blood chemistry [facility]* Diagnosis 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- Primary Long-term (current) use of anticoagulants Paroxysmal atrial fibrillation (HCC) Atrial fibrillation [facility]* Diagnosis custodial current use of anticoagulant- Primary Long-term (current) use of anticoagulants Paroxysmal atrial fibrillation (HCC) Atrial fibrillation [facility]* Diagnosis 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- Primary Long-term (current) use of anticoagulants Paroxysmal atrial fibrillation (HCC) Atrial fibrillation [facility] Diagnosis 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- Primary Long-term (current) use of anticoagulants Paroxysmal atrial fibrillation (HCC) Atrial fibrillation [facility]* Diagnosis 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, psychotic disturbance, mood disturbance, or anxiety (HCC)- Primary Essential hypertension, benign Paroxysmal atrial fibrillation (HCC) Atrial fibrillation [facility]* Diagnosis Edema of both lower legs- Primary [facility] Diagnosis custodial current use of anticoagulant- Primary Long-term (current) use of anticoagulants Paroxysmal atrial fibrillation (HCC) Atrial fibrillation [facility]* Diagnosis custodial current use of anticoagulant Long-term (current) use [...] abnormal blood chemistry [facility]* Diagnosis custodial current use of anticoagulant- Primary Long-term (current) use of anticoagulants Paroxysmal atrial fibrillation (HCC) Atrial fibrillation [facility] Diagnosis custodial current use of anticoagulant- Primary Long-term (current) use of anticoagulants Paroxysmal atrial fibrillation (HCC) Atrial fibrillation [facility] Diagnosis Left hip pain Pain in joint, pelvic region and thigh [facility] Diagnosis custodial current use of anticoagulant- Primary Long-term (current) use of anticoagulants Paroxysmal atrial fibrillation (HCC) Atrial fibrillation [facility]* Diagnosis Acute right-sided low back pain, unspecified whether sciatica present documented [facility] this [facility]* Diagnosis Paroxysmal atrial fibrillation (HCC)- Primary Atrial fibrillation [facility]* Diagnosis custodial current use of anticoagulant- Primary Long-term (current) use of anticoagulants Paroxysmal atrial fibrillation (HCC) Atrial fibrillation [facility] this [facility]* Diagnosis 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- Primary Long-term (current) use of anticoagulants Paroxysmal atrial fibrillation (HCC) Atrial fibrillation [facility]* Diagnosis Dementia, unspecified dementia severity, unspecified dementia type, unspecified whether behavioral, psychotic, or mood disturbance or anxiety (HCC)- Primary [facility]* Diagnosis 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- Primary Long-term (current) use of anticoagulants Paroxysmal atrial fibrillation (HCC) Atrial fibrillation [facility]* Diagnosis Dementia, unspecified [...] and musculoskeletal systems documented in this [facility]* Diagnosis Cognitive impairment, mild, so stated Mild cognitive impairment, so stated documented in this encounter [facility] note* Diagnosis Essential hypertension, benign- Primary Hyperlipidemia, unspecified hyperlipidemia type Atherosclerosis 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, unspecified vessel or lesion type, unspecified whether [place] or transplanted heart Paroxysmal atrial fibrillation (HCC) Atrial fibrillation Edema of both lower legs History of stroke with 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 Dementia, unspecified dementia severity, unspecified dementia type, unspecified whether behavioral, psychotic, or mood disturbance or anxiety (HCC) documented in this encounter [facility]* 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) Paralysis agitans documented in this [facility]* Diagnosis Bursitis of right elbow, unspecified bursa- Primary [facility]* Diagnosis Moderate dementia without behavioral disturbance, psychotic disturbance, mood disturbance, or anxiety, unspecified dementia type (HCC)- Primary Hallucinations Screening for depression Encounter for screening examination for other mental health and behavioral disorders documented in this encounter [facility] for referral (narrative)* Diagnostic Procedure Only (Routine) - Authorized Specialty Diagnoses / Procedures Referred By Kashac t Referred To Contact US IMAGING Diagnoses Thyroid nodule Procedures US THYROID/PARATHYROID US SOFT TISSUE HEAD & NECK REAL TIME IMGE Stas Queen MD [address] [place] [address] Us Imaging Referral ID Status Reason Start Date Expiration Date Visits Requested Visits Authorized [id number] Authorized Auto-Generat ed Referral 12/26/2021 01/25/2023 1 1 [facility] for referral (narrative)* Diagnostic Procedure Only (Urgent) - Closed Specialty Diagnoses / Procedures Referred By Jennifer t Referred To Contact XR IMAGING Diagnoses Left hip pain Procedures XR HIP GENERAL 3V PELV/AP/LAT LEFT RADEX HIP UNILATERAL WITH PELVIS 2-3 VIEWS Jenna Fitzpatrick APRN.CNP [address] [place] [address] [place] [address] Referral ID Status Reason Start Date Expiration Date V isits Requested Visits Authorized [id number] Closed Auto-Generate d Referral 05/21/2022 06/20/2023 1 1 [facility] for referral (narrative)No reason for referral information availableWCincinnati VA [facility] Center Work Phone: Reason for visit Narrative* Diagnostic Procedure Only (Urgent) - Closed Specialty Diagnoses / Procedures Referred By Jennifer t Referred To Contact XR IMAGING Diagnoses Left hip pain Procedures XR HIP GENERAL 3V PELV/AP/LAT LEFT RADEX HIP UNILATERAL WITH PELVIS 2-3 VIEWS Jenna Fitzpatrick APRN.CNP [address] [place] [address] [place] [address] Referral ID Status Reason Start Date Expiration Date V isits Requested Visits Authorized [id number] Closed Auto-Generate d Referral 05/21/2022 06/20/2023 1 1 [facility]* MRI/CT (Routine) - Closed Specialty Diagnoses / Procedures Referred By Contac t Referred To Contact MR IMAGING Diagnoses Cognitive impairment, mild, so stated Procedures MRI BRAIN W QUANT WO IVCON MRI BRAIN BRAIN STEM W/O CONTRAST MATERIAL Luciana Cisneros MD [address] [facility] [place] [address] Phone: tel: fax: [place] [address] Referral ID Status Reason Start Date Expiration Date V isits Requested Visits Authorized [id number] Closed Auto-Generate d Referral 05/11/2024 07/10/2024 1 1 [facility] Summary Purpose Family History No Family [...] Will Yes December 21 6:17pm Power of Chief Ii Dispatcher Yes December 21 6:17pm Name of Medical Power of Chief Ii Dispatcher IRAJ HULL , DAUGHTER December 21, 2021 6:17pm Advance Directive Response Recorded Date/ Time Name of Medical Power of Chief Ii Dispatcher Anabella Hull December 21, 2021 8:06pm Living Will Yes December 21 8:06pm Power of Chief Ii Dispatcher Yes December 21 8:06pm Advance Directive Response Recorded Date/ Time Living Will Yes February 10 3:17pm Power of Chief Ii Dispatcher Yes February 10, 2023 3:17pm Name of Medical Power of Chief Ii Dispatcher daughter-yomi hull February 10, 2023 3:17pm Advance Directive Response Recorded Date/ Time Do you have a Healthcare Power of Chief Ii Dispatcher? Yes September 01, 2024 7:36am Name of Medical Power of Chief Ii Dispatcher anabella hull September 01, 2024 7:36am Advance Directive Response Recorded Date/ Time Do you have a Healthcare Power of Chief Ii Dispatcher? Yes September 01, 2024 12:00pm Name of Medical Power of Chief Ii Dispatcher anabella hull September 01, 2024 12:00pm Chief [...] LAB WORK September 28, 2024 5:00a m DETENTION LAB WORK September 29, 2024 5: 00am Admission H&P Exam September 30, 2024 5:50 pm DETENTION LAB WORK October 05, 2024 5: 00am DETENTION LAB WORK October 06, 2024 5: 00am [...] LAB WORK September 28, 2024 5:00a m DETENTION LAB WORK September 29, 2024 5: 00am Admission H&P Exam September 30, 2024 5:50 pm DETENTION LAB WORK October 05, 2024 5: 00am DETENTION LAB WORK October 06, 2024 5: 00am [...] LAB WORK September 28, 2024 5:00a m DETENTION LAB WORK September 29, 2024 5: 00am Admission H&P Exam September 30, 2024 5:50 pm DETENTION LAB WORK October 05, 2024 5: 00am DETENTION LAB WORK October 06, 2024 5: 00am [...] LAB WORK September 28, 2024 5:00a m DETENTION LAB WORK September 29, 2024 5: 00am Admission H&P Exam September 30, 2024 5:50 pm DETENTION LAB WORK October 05, 2024 5: 00am DETENTION LAB WORK October 06, 2024 5: 00am New Concern October 20, 2024 2:54 pm ADMISSION, H&P October 25, 2024 2:2 2pm LABWORK October 31, 2024 5: 00am LABWORK November 02, 2024 5: 00am Chief Complaint Admit Date LAB WORK September 19, 2024 5:00 am Admission Exam September 20, 2024 2:33p m LABWORK September 21, 2024 5:00a m LABWORK September 23, 2024 10:59 am LABWORK September 26, 2024 5:00a m LAB WORK September 28, 2024 5:00a m DETENTION LAB WORK September 29, 2024 5: 00am Admission H&P Exam September 30, 2024 5:50 pm DETENTION LAB WORK October 05, 2024 5: 00am DETENTION LAB WORK October 06, 2024 5: 00am New Concern October 20, 2024 2:54 pm ADMISSION, H&P October 25, 2024 2:2 2pm LABWORK October 31, 2024 5: 00am LABWORK November 02, 2024 5: 00am DETENTION LAB WORK November 23 5:00am ADMISSION H&P EXAM BY ZINC FURNACE CHARGER November 24, 2024 3:34pm LABWORK November 25, 2024 5:00am ADMISSION H&P/MONTHLY EXAM November 1:06pm DETENTION LAB WORK November 30 5:00am DETENTION LAB WORK December 14 5:35am DETENTION LAB WORK December 21, 2024 5:45am Reason for Referral Specialty Diagnoses / Procedures Referred By Jennifer gomez Referred To Contact [facility] Diagnoses Shuffling gait Ambulatory dysfunction Balance disorder Procedures CONSULT TO PHYSICAL THERAPY PHYSICAL THERAPY EVALUATION HIGH COMPLEX 45 MINS Luciana Cisneros MD [address] [place] [id number] [facility] [address] [place] [id number] Referral ID Status Reason Start Date Expiration Date Visits Requested Visits Authorized [id number] Pending Review Auto-Generat ed Referral 04/27/2024 04/27/2025 1 1 Specialty Diagnoses / Procedures Referred By Jennifer gomez Referred To Contact MR IMAGING Diagnoses Cognitive impairment, mild, so stated Procedures MRI BRAIN W QUANT WO IVCON MRI BRAIN BRAIN STEM W/O CONTRAST MATERIAL Luciana Cisneros MD [address] [place] [id number] [place] [address] Referral ID Status Reason Start Date Expiration Date Visits Requested Visits Authorized [id number] Pending Review Auto-Generat ed Referral 04/27/2024 05/27/2025 1 1 Specialty Diagnoses / Procedures Referred By Jennifer gomez Referred To Contact Gerontology Diagnoses Dementia, unspecified dementia severity, unspecified dementia type, unspecified whether behavioral, psychotic, or mood disturbance or anxiety (HCC) Procedures CONSULT TO GERIATRICS OFFICE/OUTPATIENT NEW HIGH MDM 60 MINUTES Stas Mora MD [address] [place] [address] Referral ID Status Reason Start Date Expiration Date Visits Requested Visits Authorized [id number] Authorized PCP Requested Referral 04/25/2024 04/25/2025 1 1 Specialty Diagnoses / Procedures Referred By Contac t Referred To Contact MR IMAGING Diagnoses Cerebral infarction, unspecified mechanism (HCC) Procedures MRI BRAIN WO IVCON MRI BRAIN BRAIN STEM W/O CONTRAST MATERIAL Stas Mora MD [address] [place] [address] [place] [address] Referral ID Status Reason Start Date Expiration Date Visits Requested Visits Authorized [id number] Pending Review Auto-Genera eli Referral Patient Cleared - Admin/Chair man/Directo r advise to proceed or did not respond 03/17/2024 1 1 Additional Source Comments (unrecognized sect ion and content) No Status Records FoundNo Status Records FoundNo Status Records FoundNo Status Records FoundNo Status Records FoundNo Status Records FoundNo Status Records Found INFORMATION SOURCE (unrecogn ized section and content) DATE CREATED AUTHOR 09/11/2017 [facility] DATE CREATED AUTHOR AUTHOR'S ORGANIZ ATION 09/11/2017 [facility] DATE CREATED AUTHOR AUTHOR'S ORGANIZ ATION 09/15/2017 [facility] DATE CREATED AUTHOR AUTHOR'S ORGANIZ ATION 08/12/2023 [facility] ([place]) DATE CREATED AUTHOR AUTHOR'S ORGANIZ ATION 05/24/2024 [facility] DATE CREATED AUTHOR AUTHOR'S ORGANIZ ATION 01/20/2025 [facility] DATE CREATED AUTHOR AUTHOR'S ORGANIZ ATION 01/21/2025 [facility] Source Comments (unrecognize d section and content) In the event this informatio n is protected by the Federal Confidentiality of Alcohol and Drug Abuse Patient Records regulations: The Federal rules restrict any use of the information to criminally investigate or prosecute any alcohol or drug abuse patient.[facility] the event this information is protected by the Federal Confidentiality of Alcohol and Drug Abuse Patient Records regulations: The Federal rules restrict any use of the information to criminally investigate or prosecute any alcohol or drug abuse patient.[facility]In the event this information is protected by the Federal Confidentiality of Alcohol and Drug Abuse Patient Records regulations: The Federal rules restrict any use of the information to criminally investigate or prosecute any alcohol or drug abuse patient.[facility]In the event this information is protected by the Federal Confidentiality of Alcohol and Drug Abuse Patient Records regulations: The Federal rules restrict any use of the information to criminally investigate or prosecute any alcohol or drug abuse patient.[facility]In the event this information is protected by the Federal Confidentiality of Alcohol and Drug Abuse Patient Records regulations: The Federal rules restrict any use of the information to criminally investigate or prosecute any alcohol or drug abuse patient.[facility]In the event this information is protected by the Federal Confidentiality of Alcohol and Drug Abuse Patient Records regulations: The Federal rules restrict any use of the information to criminally investigate or prosecute any alcohol or drug abuse patient.[facility]In the event this information is protected by the Federal Confidentiality of Alcohol and Drug Abuse Patient Records regulations: The Federal rules restrict any use of the information to criminally investigate or prosecute any alcohol or drug abuse patient.[facility]In the event this information is protected by the Federal Confidentiality of Alcohol and Drug Abuse Patient Records regulations: The Federal rules restrict any use of the information to criminally investigate or prosecute any alcohol or drug abuse patient.[facility]In the event this information is protected by the Federal Confidentiality of Alcohol and Drug Abuse Patient Records regulations: The Federal rules restrict any use of the information to criminally investigate or prosecute any alcohol or drug abuse patient.[facility]In the event this information is protected by the Federal Confidentiality of Alcohol and Drug Abuse Patient Records regulations: The Federal rules restrict any use of the information to criminally investigate or prosecute any alcohol or drug abuse patient.[facility] HospitalIn the event this information is protected by the Federal Confidentiality of Alcohol and Drug Abuse Patient Records regulations: The Federal rules restrict any use of the information to criminally investigate or prosecute any alcohol or drug abuse patient.[facility] HospitalIn the event this information is protected by the Federal Confidentiality of Alcohol and Drug Abuse Patient Records regulations: The Federal rules restrict any use of the information to criminally investigate or prosecute any alcohol or drug abuse patient.[facility] HospitalIn the event this information is protected by the Federal Confidentiality of Alcohol and Drug Abuse Patient Records regulations: The Federal rules restrict any use of the information to criminally investigate or prosecute any alcohol or drug abuse patient.[facility] HospitalIn the event this information is protected by the Federal Confidentiality of Alcohol and Drug Abuse Patient Records regulations: The Federal rules restrict any use of the information to criminally investigate or prosecute any alcohol or drug abuse patient.[facility] HospitalIn the event this information is protected by the Federal Confidentiality of Alcohol and Drug Abuse Patient Records regulations: The Federal rules restrict any use of the information to criminally investigate or prosecute any alcohol or drug abuse patient.[facility] HospitalIn the event this information is protected by the Federal Confidentiality of Alcohol and Drug Abuse Patient Records regulations: The Federal rules restrict any use of the information to criminally investigate or prosecute any alcohol or drug abuse patient.[facility] HospitalIn the event this information is protected by the Federal Confidentiality of Alcohol and Drug Abuse Patient Records regulations: The Federal rules restrict any use of the information to criminally investigate or prosecute any alcohol or drug abuse patient.[facility] HospitalIn the event this information is protected by the Federal Confidentiality of Alcohol and Drug Abuse Patient Records regulations: The Federal rules restrict any use of the information to criminally investigate or prosecute any alcohol or drug abuse patient.[facility] HospitalIn the event this information is protected by the Federal Confidentiality of Alcohol and Drug Abuse Patient Records regulations: The Federal rules restrict any use of the information to criminally investigate or prosecute any alcohol or drug abuse patient.[facility] HospitalIn the event this information is protected by the Federal Confidentiality of Alcohol and Drug Abuse Patient Records regulations: The Federal rules restrict any use of the information to criminally investigate or prosecute any alcohol or drug abuse patient.[facility] HospitalIn the event this information is protected by the Federal Confidentiality of Alcohol and Drug Abuse Patient Records regulations: The Federal rules restrict any use of the information to criminally investigate or prosecute any alcohol or drug abuse patient.[facility] HospitalIn the event this information is protected by the Federal Confidentiality of Alcohol and Drug Abuse Patient Records regulations: The Federal rules restrict any use of the information to criminally investigate or prosecute any alcohol or drug abuse patient.[facility] HospitalIn the event this information is protected by the Federal Confidentiality of Alcohol and Drug Abuse Patient Records regulations: The Federal rules restrict any use of the information to criminally investigate or prosecute any alcohol or drug abuse patient.[facility] HospitalIn the event this information is protected by the Federal Confidentiality of Alcohol and Drug Abuse Patient Records regulations: The Federal rules restrict any use of the information to criminally investigate or prosecute any alcohol or drug abuse patient.[facility] HospitalIn the event this information is protected by the Federal Confidentiality of Alcohol and Drug Abuse Patient Records regulations: The Federal rules restrict any use of the information to criminally investigate or prosecute any alcohol or drug abuse patient.[facility] HospitalIn the event this information is protected by the Federal Confidentiality of Alcohol and Drug Abuse Patient Records regulations: The Federal rules restrict any use of the information to criminally investigate or prosecute any alcohol or drug abuse patient.[facility] HospitalIn the event this information is protected by the Federal Confidentiality of Alcohol and Drug Abuse Patient Records regulations: The Federal rules restrict any use of the information to criminally investigate or prosecute any alcohol or drug abuse patient.[facility] HospitalIn the event this information is protected by the Federal Confidentiality of Alcohol and Drug Abuse Patient Records regulations: The Federal rules restrict any use of the information to criminally investigate or prosecute any alcohol or drug abuse patient.[facility] the event this information is protected by the Federal Confidentiality of Alcohol and Drug Abuse Patient Records regulations: The Federal rules restrict any use of the information to criminally investigate or prosecute any alcohol or drug abuse patient.[facility] HospitalIn the event this information is protected by the Federal Confidentiality of Alcohol and Drug Abuse Patient Records regulations: The Federal rules restrict any use of the information to criminally investigate or prosecute any alcohol or drug abuse patient.[facility] HospitalIn the event this information is protected by the Federal Confidentiality of Alcohol and Drug Abuse Patient Records regulations: The Federal rules restrict any use of the information to criminally investigate or prosecute any alcohol or drug abuse patient.[facility] HospitalIn the event this information is protected by the Federal Confidentiality of Alcohol and Drug Abuse Patient Records regulations: The Federal rules restrict any use of the information to criminally investigate or prosecute any alcohol or drug abuse patient.[facility] HospitalIn the event this information is protected by the Federal Confidentiality of Alcohol and Drug Abuse Patient Records regulations: The Federal rules restrict any use of the information to criminally investigate or prosecute any alcohol or drug abuse patient.[facility] HospitalIn the event this information is protected by the Federal Confidentiality of Alcohol and Drug Abuse Patient Records regulations: The Federal rules restrict any use of the information to criminally investigate or prosecute any alcohol or drug abuse patient.[facility] HospitalIn the event this information is protected by the Federal Confidentiality of Alcohol and Drug Abuse Patient Records regulations: The Federal rules restrict any use of the information to criminally investigate or prosecute any alcohol or drug abuse patient.[facility] HospitalIn the event this information is protected by the Federal Confidentiality of Alcohol and Drug Abuse Patient Records regulations: The Federal rules restrict any use of the information to criminally investigate or prosecute any alcohol or drug abuse patient.[facility] HospitalIn the event this information is protected by the Federal Confidentiality of Alcohol and Drug Abuse Patient Records regulations: The Federal rules restrict any use of the information to criminally investigate or prosecute any alcohol or drug abuse patient.[facility] HospitalIn the event this information is protected by the Federal Confidentiality of Alcohol and Drug Abuse Patient Records regulations: The Federal rules restrict any use of the information to criminally investigate or prosecute any alcohol or drug abuse patient.[facility] HospitalIn the event this information is protected by the Federal Confidentiality of Alcohol and Drug Abuse Patient Records regulations: The Federal rules restrict any use of the information to criminally investigate or prosecute any alcohol or drug abuse patient.[facility] HospitalIn the event this information is protected by the Federal Confidentiality of Alcohol and Drug Abuse Patient Records regulations: The Federal rules restrict any use of the information to criminally investigate or prosecute any alcohol or drug abuse patient.[facility] HospitalIn the event this information is protected by the Federal Confidentiality of Alcohol and Drug Abuse Patient Records regulations: The Federal rules restrict any use of the information to criminally investigate or prosecute any alcohol or drug abuse patient.[facility] HospitalIn the event this information is protected by the Federal Confidentiality of Alcohol and Drug Abuse Patient Records regulations: The Federal rules restrict any use of the information to criminally investigate or prosecute any alcohol or drug abuse patient.[facility] HospitalIn the event this information is protected by the Federal Confidentiality of Alcohol and Drug Abuse Patient Records regulations: The Federal rules restrict any use of the information to criminally investigate or prosecute any alcohol or drug abuse patient.[facility] HospitalIn the event this information is protected by the Federal Confidentiality of Alcohol and Drug Abuse Patient Records regulations: The Federal rules restrict any use of the information to criminally investigate or prosecute any alcohol or drug abuse patient.[facility] HospitalIn the event this information is protected by the Federal Confidentiality of Alcohol and Drug Abuse Patient Records regulations: The Federal rules restrict any use of the information to criminally investigate or prosecute any alcohol or drug abuse patient.[facility] HospitalIn the event this information is protected by the Federal Confidentiality of Alcohol and Drug Abuse Patient Records regulations: The Federal rules restrict any use of the information to criminally investigate or prosecute any alcohol or drug abuse patient.[facility] HospitalIn the event this information is protected by the Federal Confidentiality of Alcohol and Drug Abuse Patient Records regulations: The Federal rules restrict any use of the information to criminally investigate or prosecute any alcohol or drug abuse patient.[facility] HospitalIn the event this information is protected by the Federal Confidentiality of Alcohol and Drug Abuse Patient Records regulations: The Federal rules restrict any use of the information to criminally investigate or prosecute any alcohol or drug abuse patient.[facility] HospitalIn the event this information is protected by the Federal Confidentiality of Alcohol and Drug Abuse Patient Records regulations: The Federal rules restrict any use of the information to criminally investigate or prosecute any alcohol or drug abuse patient.[facility] HospitalIn the event this information is protected by the Federal Confidentiality of Alcohol and Drug Abuse Patient Records regulations: The Federal rules restrict any use of the information to criminally investigate or prosecute any alcohol or drug abuse patient.[facility] HospitalIn the event this information is protected by the Federal Confidentiality of Alcohol and Drug Abuse Patient Records regulations: The Federal rules restrict any use of the information to criminally investigate or prosecute any alcohol or drug abuse patient.[facility] HospitalIn the event this information is protected by the Federal Confidentiality of Alcohol and Drug Abuse Patient Records regulations: The Federal rules restrict any use of the information to criminally investigate or prosecute any alcohol or drug abuse patient.[facility] HospitalIn the event this information is protected by the Federal Confidentiality of Alcohol and Drug Abuse Patient Records regulations: The Federal rules restrict any use of the information to criminally investigate or prosecute any alcohol or drug abuse patient.[facility] HospitalIn the event this information is protected by the Federal Confidentiality of Alcohol and Drug Abuse Patient Records regulations: The Federal rules restrict any use of the information to criminally investigate or prosecute any alcohol or drug abuse patient.[facility] HospitalIn the event this information is protected by the Federal Confidentiality of Alcohol and Drug Abuse Patient Records regulations: The Federal rules restrict any use of the information to criminally investigate or prosecute any alcohol or drug abuse patient.[facility] HospitalIn the event this information is protected by the Federal Confidentiality of Alcohol and Drug Abuse Patient Records regulations: The Federal rules restrict any use of the information to criminally investigate or prosecute any alcohol or drug abuse patient.[facility] HospitalIn the event this information is protected by the Federal Confidentiality of Alcohol and Drug Abuse Patient Records regulations: The Federal rules restrict any use of the information to criminally investigate or prosecute any alcohol or drug abuse patient.[facility] HospitalIn the event this information is protected by the Federal Confidentiality of Alcohol and Drug Abuse Patient Records regulations: The Federal rules restrict any use of the information to criminally investigate or prosecute any alcohol or drug abuse patient.[facility] HospitalIn the event this information is protected by the Federal Confidentiality of Alcohol and Drug Abuse Patient Records regulations: The Federal rules restrict any use of the information to criminally investigate or prosecute any alcohol or drug abuse patient.[facility] HospitalIn the event this information is protected by the Federal Confidentiality of Alcohol and Drug Abuse Patient Records regulations: The Federal rules restrict any use of the information to criminally investigate or prosecute any alcohol or drug abuse patient.[facility] HospitalIn the event this information is protected by the Federal Confidentiality of Alcohol and Drug Abuse Patient Records regulations: The Federal rules restrict any use of the information to criminally investigate or prosecute any alcohol or drug abuse patient.[facility] HospitalIn the event this information is protected by the Federal Confidentiality of Alcohol and Drug Abuse Patient Records regulations: The Federal rules restrict any use of the information to criminally investigate or prosecute any alcohol or drug abuse patient.[facility] HospitalIn the event this information is protected by the Federal Confidentiality of Alcohol and Drug Abuse Patient Records regulations: The Federal rules restrict any use of the information to criminally investigate or prosecute any alcohol or drug abuse patient.[facility] HospitalIn the event this information is protected by the Federal Confidentiality of Alcohol and Drug Abuse Patient Records regulations: The Federal rules restrict any use of the information to criminally investigate or prosecute any alcohol or drug abuse patient.[facility] HospitalIn the event this information is protected by the Federal Confidentiality of Alcohol and Drug Abuse Patient Records regulations: The Federal rules restrict any use of the information to criminally investigate or prosecute any alcohol or drug abuse patient.[facility] HospitalIn the event this information is protected by the Federal Confidentiality of Alcohol and Drug Abuse Patient Records regulations: The Federal rules restrict any use of the information to criminally investigate or prosecute any alcohol or drug abuse patient.[facility] HospitalIn the event this information is protected by the Federal Confidentiality of Alcohol and Drug Abuse Patient Records regulations: The Federal rules restrict any use of the information to criminally investigate or prosecute any alcohol or drug abuse patient.[facility] HospitalIn the event this information is protected by the Federal Confidentiality of Alcohol and Drug Abuse Patient Records regulations: The Federal rules restrict any use of the information to criminally investigate or prosecute any alcohol or drug abuse patient.[facility] HospitalIn the event this information is protected by the Federal Confidentiality of Alcohol and Drug Abuse Patient Records regulations: The Federal rules restrict any use of the information to criminally investigate or prosecute any alcohol or drug abuse patient.[facility] HospitalIn the event this information is protected by the Federal Confidentiality of Alcohol and Drug Abuse Patient Records regulations: The Federal rules restrict any use of the information to criminally investigate or prosecute any alcohol or drug abuse patient.[facility] HospitalIn the event this information is protected by the Federal Confidentiality of Alcohol and Drug Abuse Patient Records regulations: The Federal rules restrict any use of the information to criminally investigate or prosecute any alcohol or drug abuse patient.[facility] HospitalIn the event this information is protected by the Federal Confidentiality of Alcohol and Drug Abuse Patient Records regulations: The Federal rules restrict any use of the information to criminally investigate or prosecute any alcohol or drug abuse patient.[facility] HospitalIn the event this information is protected by the Federal Confidentiality of Alcohol and Drug Abuse Patient Records regulations: The Federal rules restrict any use of the information to criminally investigate or prosecute any alcohol or drug abuse patient.[facility]In the event this information is protected by the Federal Confidentiality of Alcohol and Drug Abuse Patient Records regulations: The Federal rules restrict any use of the information to criminally investigate or prosecute any alcohol or drug abuse patient.[facility]In the event this information is protected by the Federal Confidentiality of Alcohol and Drug Abuse Patient Records regulations: The Federal rules restrict any use of the information to criminally investigate or prosecute any alcohol or drug abuse patient.[facility]In the event this information is protected by the Federal Confidentiality of Alcohol and Drug Abuse Patient Records regulations: The Federal rules restrict any use of the information to criminally investigate or prosecute any alcohol or drug abuse patient.[facility]In the event this information is protected by the Federal Confidentiality of Alcohol and Drug Abuse Patient Records regulations: The Federal rules restrict any use of the information to criminally investigate or prosecute any alcohol or drug abuse patient.[facility] HospitalIn the event this information is protected by the Federal Confidentiality of Alcohol and Drug Abuse Patient Records regulations: The Federal rules restrict any use of the information to criminally investigate or prosecute any alcohol or drug abuse patient.[facility] the event this information is protected by the Federal Confidentiality of Alcohol and Drug Abuse Patient Records regulations: The Federal rules restrict any use of the information to criminally investigate or prosecute any alcohol or drug abuse patient.[facility] HospitalIn the event this information is protected by the Federal Confidentiality of Alcohol and Drug Abuse Patient Records regulations: The Federal rules restrict any use of the information to criminally investigate or prosecute any alcohol or drug abuse patient.[facility] HospitalIn the event this information is protected by the Federal Confidentiality of Alcohol and Drug Abuse Patient Records regulations: The Federal rules restrict any use of the information to criminally investigate or prosecute any alcohol or drug abuse patient.[facility] HospitalIn the event this information is protected by the Federal Confidentiality of Alcohol and Drug Abuse Patient Records regulations: The Federal rules restrict any use of the information to criminally investigate or prosecute any alcohol or drug abuse patient.[facility] HospitalIn the event this information is protected by the Federal Confidentiality of Alcohol and Drug Abuse Patient Records regulations: The Federal rules restrict any use of the information to criminally investigate or prosecute any alcohol or drug abuse patient.[facility] HospitalIn the event this information is protected by the Federal Confidentiality of Alcohol and Drug Abuse Patient Records regulations: The Federal rules restrict any use of the information to criminally investigate or prosecute any alcohol or drug abuse patient.[facility] HospitalIn the event this information is protected by the Federal Confidentiality of Alcohol and Drug Abuse Patient Records regulations: The Federal rules restrict any use of the information to criminally investigate or prosecute any alcohol or drug abuse patient.[facility] HospitalIn the event this information is protected by the Federal Confidentiality of Alcohol and Drug Abuse Patient Records regulations: The Federal rules restrict any use of the information to criminally investigate or prosecute any alcohol or drug abuse patient.[facility]In the event this information is protected by the Federal Confidentiality of Alcohol and Drug Abuse Patient Records regulations: The Federal rules restrict any use of the information to criminally investigate or prosecute any alcohol or drug abuse patient.[facility] HospitalIn the event this information is protected by the Federal Confidentiality of Alcohol and Drug Abuse Patient Records regulations: The Federal rules restrict any use of the information to criminally investigate or prosecute any alcohol or drug abuse patient.[facility] HospitalIn the event this information is protected by the Federal Confidentiality of Alcohol and Drug Abuse Patient Records regulations: The Federal rules restrict any use of the information to criminally investigate or prosecute any alcohol or drug abuse patient.[facility] HospitalIn the event this information is protected by the Federal Confidentiality of Alcohol and Drug Abuse Patient Records regulations: The Federal rules restrict any use of the information to criminally investigate or prosecute any alcohol or drug abuse patient.[facility]In the event this information is protected by the Federal Confidentiality of Alcohol and Drug Abuse Patient Records regulations: The Federal rules restrict any use of the information to criminally investigate or prosecute any alcohol or drug abuse patient.[facility] HospitalIn the event this information is protected by the Federal Confidentiality of Alcohol and Drug Abuse Patient Records regulations: The Federal rules restrict any use of the information to criminally investigate or prosecute any alcohol or drug abuse patient.[facility] HospitalIn the event this information is protected by the Federal Confidentiality of Alcohol and Drug Abuse Patient Records regulations: The Federal rules restrict any use of the information to criminally investigate or prosecute any alcohol or drug abuse patient.[facility] HospitalIn the event this information is protected by the Federal Confidentiality of Alcohol and Drug Abuse Patient Records regulations: The Federal rules restrict any use of the information to criminally investigate or prosecute any alcohol or drug abuse patient.[facility] HospitalIn the event this information is protected by the Federal Confidentiality of Alcohol and Drug Abuse Patient Records regulations: The Federal rules restrict any use of the information to criminally investigate or prosecute any alcohol or drug abuse patient.[facility] HospitalIn the event this information is protected by the Federal Confidentiality of Alcohol and Drug Abuse Patient Records regulations: The Federal rules restrict any use of the information to criminally investigate or prosecute any alcohol or drug abuse patient.[facility]In the event this information is protected by the Federal Confidentiality of Alcohol and Drug Abuse Patient Records regulations: The Federal rules restrict any use of the information to criminally investigate or prosecute any alcohol or drug abuse patient.[facility]In the event this information is protected by the Federal Confidentiality of Alcohol and Drug Abuse Patient Records regulations: The Federal rules restrict any use of the information to criminally investigate or prosecute any alcohol or drug abuse patient.[facility]In the event this information is protected by the Federal Confidentiality of Alcohol and Drug Abuse Patient Records regulations: The Federal rules restrict any use of the information to criminally investigate or prosecute any alcohol or drug abuse patient.[facility] HospitalIn the event this information is protected by the Federal Confidentiality of Alcohol and Drug Abuse Patient Records regulations: The Federal rules restrict any use of the information to criminally investigate or prosecute any alcohol or drug abuse patient.[facility] HospitalIn the event this information is protected by the Federal Confidentiality of Alcohol and Drug Abuse Patient Records regulations: The Federal rules restrict any use of the information to criminally investigate or prosecute any alcohol or drug abuse patient.[facility] HospitalIn the event this information is protected by the Federal Confidentiality of Alcohol and Drug Abuse Patient Records regulations: The Federal rules restrict any use of the information to criminally investigate or prosecute any alcohol or drug abuse patient.[facility] HospitalIn the event this information is protected by the Federal Confidentiality of Alcohol and Drug Abuse Patient Records regulations: The Federal rules restrict any use of the information to criminally investigate or prosecute any alcohol or drug abuse patient.[facility] HospitalIn the event this information is protected by the Federal Confidentiality of Alcohol and Drug Abuse Patient Records regulations: The Federal rules restrict any use of the information to criminally investigate or prosecute any alcohol or drug abuse patient.[facility] HospitalIn the event this information is protected by the Federal Confidentiality of Alcohol and Drug Abuse Patient Records regulations: The Federal rules restrict any use of the information to criminally investigate or prosecute any alcohol or drug abuse patient.[facility] HospitalIn the event this information is protected by the Federal Confidentiality of Alcohol and Drug Abuse Patient Records regulations: The Federal rules restrict any use of the information to criminally investigate or prosecute any alcohol or drug abuse patient.[facility]In the event this information is protected by the Federal Confidentiality of Alcohol and Drug Abuse Patient Records regulations: The Federal rules restrict any use of the information to criminally investigate or prosecute any alcohol or drug abuse patient.[facility] HospitalIn the event this information is protected by the Federal Confidentiality of Alcohol and Drug Abuse Patient Records regulations: The Federal rules restrict any use of the information to criminally investigate or prosecute any alcohol or drug abuse patient.[facility] HospitalIn the event this information is protected by the Federal Confidentiality of Alcohol and Drug Abuse Patient Records regulations: The Federal rules restrict any use of the information to criminally investigate or prosecute any alcohol or drug abuse patient.[facility]In the event this information is protected by the Federal Confidentiality of Alcohol and Drug Abuse Patient Records regulations: The Federal rules restrict any use of the information to criminally investigate or prosecute any alcohol or drug abuse patient.[facility] HospitalIn the event this information is protected by the Federal Confidentiality of Alcohol and Drug Abuse Patient Records regulations: The Federal rules restrict any use of the information to criminally investigate or prosecute any alcohol or drug abuse patient.[facility] HospitalIn the event this information is protected by the Federal Confidentiality of Alcohol and Drug Abuse Patient Records regulations: The Federal rules restrict any use of the information to criminally investigate or prosecute any alcohol or drug abuse patient.[facility] HospitalIn the event this information is protected by the Federal Confidentiality of Alcohol and Drug Abuse Patient Records regulations: The Federal rules restrict any use of the information to criminally investigate or prosecute any alcohol or drug abuse patient.[facility] HospitalIn the event this information is protected by the Federal Confidentiality of Alcohol and Drug Abuse Patient Records regulations: The Federal rules restrict any use of the information to criminally investigate or prosecute any alcohol or drug abuse patient.[facility]In the event this information is protected by the Federal Confidentiality of Alcohol and Drug Abuse Patient Records regulations: The Federal rules restrict any use of the information to criminally investigate or prosecute any alcohol or drug abuse patient.[facility] HospitalIn the event this information is protected by the Federal Confidentiality of Alcohol and Drug Abuse Patient Records regulations: The Federal rules restrict any use of the information to criminally investigate or prosecute any alcohol or drug abuse patient.[facility] HospitalIn the event this information is protected by the Federal Confidentiality of Alcohol and Drug Abuse Patient Records regulations: The Federal rules restrict any use of the information to criminally investigate or prosecute any alcohol or drug abuse patient.[facility] HospitalIn the event this information is protected by the Federal Confidentiality of Alcohol and Drug Abuse Patient Records regulations: The Federal rules restrict any use of the information to criminally investigate or prosecute any alcohol or drug abuse patient.[facility]In the event this information is protected by the Federal Confidentiality of Alcohol and Drug Abuse Patient Records regulations: The Federal rules restrict any use of the information to criminally investigate or prosecute any alcohol or drug abuse patient.[facility]In the event this information is protected by the Federal Confidentiality of Alcohol and Drug Abuse Patient Records regulations: The Federal rules restrict any use of the information to criminally investigate or prosecute any alcohol or drug abuse patient.[facility]In the event this information is protected by the Federal Confidentiality of Alcohol and Drug Abuse Patient Records regulations: The Federal rules restrict any use of the information to criminally investigate or prosecute any alcohol or drug abuse patient.[facility]In the event this information is protected by the Federal Confidentiality of Alcohol and Drug Abuse Patient Records regulations: The Federal rules restrict any use of the information to criminally investigate or prosecute any alcohol or drug abuse patient.[facility]In the event this information is protected by the Federal Confidentiality of Alcohol and Drug Abuse Patient Records regulations: The Federal rules restrict any use of the information to criminally investigate or prosecute any alcohol or drug abuse patient.[facility] HospitalIn the event this information is protected by the Federal Confidentiality of Alcohol and Drug Abuse Patient Records regulations: The Federal rules restrict any use of the information to criminally investigate or prosecute any alcohol or drug abuse patient.[facility]In the event this information is protected by the Federal Confidentiality of Alcohol and Drug Abuse Patient Records regulations: The Federal rules restrict any use of the information to criminally investigate or prosecute any alcohol or drug abuse patient.[facility]In the event this information is protected by the Federal Confidentiality of Alcohol and Drug Abuse Patient Records regulations: The Federal rules restrict any use of the information to criminally investigate or prosecute any alcohol or drug abuse patient.[facility] HospitalIn the event this information is protected by the Federal Confidentiality of Alcohol and Drug Abuse Patient Records regulations: The Federal rules restrict any use of the information to criminally investigate or prosecute any alcohol or drug abuse patient.[facility] HospitalIn the event this information is protected by the Federal Confidentiality of Alcohol and Drug Abuse Patient Records regulations: The Federal rules restrict any use of the information to criminally investigate or prosecute any alcohol or drug abuse patient.[facility] the event this information is protected by the Federal Confidentiality of Alcohol and Drug Abuse Patient Records regulations: The Federal rules restrict any use of the information to criminally investigate or prosecute any alcohol or drug abuse patient.[facility] HospitalIn the event this information is protected by the Federal Confidentiality of Alcohol and Drug Abuse Patient Records regulations: The Federal rules restrict any use of the information to criminally investigate or prosecute any alcohol or drug abuse patient.[facility] HospitalIn the event this information is protected by the Federal Confidentiality of Alcohol and Drug Abuse Patient Records regulations: The Federal rules restrict any use of the information to criminally investigate or prosecute any alcohol or drug abuse patient.[facility]In the event this information is protected by the Federal Confidentiality of Alcohol and Drug Abuse Patient Records regulations: The Federal rules restrict any use of the information to criminally investigate or prosecute any alcohol or drug abuse patient.[facility]In the event this information is protected by the Federal Confidentiality of Alcohol and Drug Abuse Patient Records regulations: The Federal rules restrict any use of the information to criminally investigate or prosecute any alcohol or drug abuse patient.[facility] HospitalIn the event this information is protected by the Federal Confidentiality of Alcohol and Drug Abuse Patient Records regulations: The Federal rules restrict any use of the information to criminally investigate or prosecute any alcohol or drug abuse patient.[facility] Reason for Visit (unrecogniz ed section [...] STEM W/O CONTRAST MATERIAL Stas Mora MD [address] [place] [address] [place] [address] Referral ID Status Reason Start Date Expiration Date V isits Requested Visits Authorized [id number] Closed Auto-Generat ed Referral Patient Cleared - [...] psychotic, or mood disturbance or anxiety ([facility]) Procedures CONSULT TO GERIATRICS OFFICE/OUTPATIENT [facility] 60 MINUTES Stas Mora MD [address] [place] [address] Referral ID Status Reason Start Date Expiration Date V isits Requested Visits Authorized [id number] Closed PCP Requested Referral 04/25/2024 04/25/2025 1 [...] Care Teams (unrecognized sec tion and content) Building Supplies Salesperson Retail Relationship Specialty Start Date End Date Stas Mora MD [address] [place], [place] [id number] PCP - General 08/02/08, Pharmacist [id number] [place] [address] Pharmacist Pharmacy 10/19/19 Building Supplies Salesperson Retail Relationship Specialty Start Date End Date Stas Mora MD [address] [place], [place] [id number] PCP - General 08/02/08, Pharmacist [id number] [place] [address] Pharmacist Pharmacy 10/19/19 Building Supplies Salesperson Retail Relationship Specialty Start Date End Date Stas Mora MD [address] [place], [place] [id number] PCP - General 08/02/08, Pharmacist [id number] [facility] [place] [address] Pharmacist Pharmacy 10/19/19 Building Supplies Salesperson Retail Relationship Specialty Start Date End Date Stas Mora MD [address] [facility] [place] [address] PCP - General 08/02/08, Pharmacist [id number] [place] [address] Pharmacist Pharmacy 10/19/19 Building Supplies Salesperson Retail Relationship Specialty Start Date End Date Stas Mora MD [address] [facility] [place] [address] PCP - General 08/02/08, Pharmacist [id number] [place] [address] Pharmacist Pharmacy 10/19/19 Building Supplies Salesperson Retail Relationship Specialty Start Date End Date Stas Mora MD [address] [facility] [place] [address] PCP - General 08/02/08, Pharmacist [id number] [place] [address] Pharmacist Pharmacy 10/19/19 Building Supplies Salesperson Retail Relationship Specialty Start Date End Date Stas Mora MD [address] [facility] [place] [address] PCP - General 08/02/08, Pharmacist [id number] [place] [address] Pharmacist Pharmacy 10/19/19 Building Supplies Salesperson Retail Relationship Specialty Start Date End Date Stas Mora MD [address] [facility] [place] [address] PCP - General 08/02/08, Pharmacist [id number] [facility] [place] [address] Pharmacist Pharmacy 10/19/19 Building Supplies Salesperson Retail Relationship Specialty Start Date End Date Stas Mora MD [address] [facility] [place] [address] PCP - General 08/02/08, Pharmacist [id number] [place] [address] Pharmacist Pharmacy 10/19/19 Building Supplies Salesperson Retail Relationship Specialty Start Date End Date Stas Mora MD [address] [place] [address] PCP - General 08/02/08, Pharmacist [id number] [place] [address] Pharmacist Pharmacy 10/19/19 Building Supplies Salesperson Retail Relationship Specialty Start Date End Date Stas Mora MD [address] [place] [address] PCP - General 08/02/08, Pharmacist [phone] [place] [address], [place] [address] Pharmacist Pharmacy 10/19/19 Building Supplies Salesperson Retail Relationship Specialty Start Date End Date Stas Mora MD [address] [place] [address] PCP - General 08/02/08, Pharmacist [id number] [place] [address] Pharmacist Pharmacy 10/19/19 Building Supplies Salesperson Retail Relationship Specialty Start Date End Date Stas Mora MD [address] [place] [address] PCP - General 08/02/08, Pharmacist [id number] [place] [address] Pharmacist Pharmacy 10/19/19 Building Supplies Salesperson Retail Relationship Specialty Start Date End Date Stas Mora MD [address] [facility] [place] [address] PCP - General 08/02/08, Pharmacist [id number] [place] [address] Pharmacist Pharmacy 10/19/19 Building Supplies Salesperson Retail Relationship Specialty Start Date End Date Stas Mora MD [address] [facility] [place] [address] PCP - General 08/02/08, Pharmacist [phone] [place] [address] Pharmacist Pharmacy 10/19/19 Building Supplies Salesperson Retail Relationship Specialty Start Date End Date Stas Mora MD [address] [place] [address] PCP - General 08/02/08, Pharmacist [phone] [place] [address] Pharmacist Pharmacy 10/19/19 Building Supplies Salesperson Retail Relationship Specialty Start Date End Date Stas Mora MD [address] [place] [address] PCP - General 08/02/08, Pharmacist [phone] [place] [address] Pharmacist Pharmacy 10/19/19 Building Supplies Salesperson Retail Relationship Specialty Start Date End Date Stas Mora MD [address] [place] [address] PCP - General 08/02/08, Pharmacist [phone] [place] [address] Pharmacist Pharmacy 10/19/19 Building Supplies Salesperson Retail Relationship Specialty Start Date End Date Stas Mora MD [address] [place] [address] PCP - General 08/02/08, Pharmacist [phone] [place] [address] Pharmacist Pharmacy 10/19/19 Building Supplies Salesperson Retail Relationship Specialty Start Date End Date Stas Mora MD [address] [place] [address] PCP - General 08/02/08, Pharmacist [address] [place] [address] Pharmacist Pharmacy 10/19/19 Building Supplies Salesperson Retail Relationship Specialty Start Date End Date Stas Mora MD [address] [place] [address] PCP - General 08/02/08, Pharmacist [phone] [place] [address] Pharmacist Pharmacy 10/19/19 Team Status: Active Member Role Status Dates Dr. Stas Mora MD Family Provider Active Dr. Stas Mora MD Primary Care Provider Active Team Status: Inactive Member Role Status Dates Dr. Stas Mora MD Primary Care Provider Active Dr. Brian Cunningham DO Emergency Provider Active Building Supplies Salesperson Retail Relationship Specialty Start Date End Date Stas Mora MD [address] [place] [address] PCP - General 08/02/08, Pharmacist [phone] [place] [address] Pharmacist Pharmacy 10/19/19 Building Supplies Salesperson Retail Relationship Specialty Start Date End Date Stas Mora MD [address] [place] [address] PCP - General 08/02/08, Pharmacist [phone] [place] [address] Pharmacist Pharmacy 10/19/19 Building Supplies Salesperson Retail Relationship Specialty Start Date End Date Stas Mora MD [address] [place] [address] PCP - General 08/02/08, Pharmacist [id number] [place] [address] Pharmacist Pharmacy 10/19/19 Building Supplies Salesperson Retail Relationship Specialty Start Date End Date Stas Mora MD [address] [facility] [place] [address] PCP - General 08/02/08, Pharmacist [phone] [place] [address] Pharmacist Pharmacy 10/19/19 Building Supplies Salesperson Retail Relationship Specialty Start Date End Date Stas Mora MD [address] [facility] [place] [address] PCP - General 08/02/08, Pharmacist [id number] [place] [address] Pharmacist Pharmacy 10/19/19 Building Supplies Salesperson Retail Relationship Specialty Start Date End Date Stas Mora MD [address] [place] [address] PCP - General 08/02/08, Pharmacist [phone] [place] [address] Pharmacist Pharmacy 10/19/19 Building Supplies Salesperson Retail Relationship Specialty Start Date End Date Stas Mora MD [address] [place] [address] PCP - General 08/02/08, Pharmacist [address] [place] [address] Pharmacist Pharmacy 10/19/19 Building Supplies Salesperson Retail Relationship Specialty Start Date End Date Stas Mora MD [address] [facility] [place] [address] PCP - General 08/02/08, Pharmacist [phone] [place] [address] Pharmacist Pharmacy 10/19/19 Building Supplies Salesperson Retail Relationship Specialty Start Date End Date Stas Mora MD [address] [place] [address] PCP - General 08/02/08, Pharmacist [phone] [place] [address] Pharmacist Pharmacy 10/19/19 Building Supplies Salesperson Retail Relationship Specialty Start Date End Date Stas Mora MD [address] [place] [address] PCP - General 08/02/08, Pharmacist [address] [place] [address] Pharmacist Pharmacy 10/19/19 Building Supplies Salesperson Retail Relationship Specialty Start Date End Date Stas Mora MD [address] [place] [address] PCP - General 08/02/08, Pharmacist [phone] [place] [address] Pharmacist Pharmacy 10/19/19 Building Supplies Salesperson Retail Relationship Specialty Start Date End Date Stas Mora MD [address] [place] [address] PCP - General 08/02/08, Pharmacist [address] [place] [address] Pharmacist Pharmacy 10/19/19 Building Supplies Salesperson Retail Relationship Specialty Start Date End Date Stas Mora MD [address] [facility] [place] [address] PCP - General 08/02/08, Pharmacist [address] [place] [address] Pharmacist Pharmacy 10/19/19 Building Supplies Salesperson Retail Relationship Specialty Start Date End Date Stas Mora MD [address] [facility] [place] [address] PCP - General 08/02/08, Pharmacist [phone] [place] [address] Pharmacist Pharmacy 10/19/19 Building Supplies Salesperson Retail Relationship Specialty Start Date End Date Stas Mora MD [address] [facility] [place] [address] PCP - General 08/02/08, Pharmacist [phone] [place] [address] Pharmacist Pharmacy 10/19/19 Building Supplies Salesperson Retail Relationship Specialty Start Date End Date Stas Mora MD [address] [place] [address] PCP - General 08/02/08, Pharmacist [phone] [place] [address] Pharmacist Pharmacy 10/19/19 Building Supplies Salesperson Retail Relationship Specialty Start Date End Date Stas Mora MD [address] [place] [address] PCP - General 08/02/08, Pharmacist [address] [place] [address] Pharmacist Pharmacy 10/19/19 Building Supplies Salesperson Retail Relationship Specialty Start Date End Date Stas Mora MD [address] [place] [address] PCP - General 08/02/08, Pharmacist [phone] [place] [address] Pharmacist Pharmacy 10/19/19 Building Supplies Salesperson Retail Relationship Specialty Start Date End Date Stas Mora MD [address] [place] [address] PCP - General 08/02/08, Pharmacist [phone] [place] [address] Pharmacist Pharmacy 10/19/19 Building Supplies Salesperson Retail Relationship Specialty Start Date End Date Stas Mora MD [address] [place] [address] PCP - General 08/02/08, Pharmacist [address] [place] [address] Pharmacist Pharmacy 10/19/19 Building Supplies Salesperson Retail Relationship Specialty Start Date End Date Stas Mora MD [address] [place] [address] PCP - General 08/02/08, Pharmacist [address] [place] [address] Pharmacist Pharmacy 10/19/19 Building Supplies Salesperson Retail Relationship Specialty Start Date End Date Stas Mora MD [address] [place] [address] PCP - General 08/02/08, Pharmacist [address] [place] [address] Pharmacist Pharmacy 10/19/19 Jenna Fitzpatrick, JETHRO.CUSTOMER ACQUISITION MANAGER [address] [place] [address] [facility] 02/28/24 Building Supplies Salesperson Retail Relationship Specialty Start Date End Date Stas Mora MD [address] [place] [address] PCP - General 08/02/08, Pharmacist [address] [place] [address] Pharmacist Pharmacy 10/19/19 Jenna Fitzpatrick, JETHRO.CUSTOMER ACQUISITION MANAGER [address] [place] [address] [facility] 02/28/24 Elvis Kearney APRN.CUSTOMER ACQUISITION MANAGER [address] [facility] [place] [address] [facility] 03/08/24 Building Supplies Salesperson Retail Relationship Specialty Start Date End Date Stas Mora MD [address] [facility] [place] [address] PCP - General 08/02/08, Pharmacist [address] [place] [address] Pharmacist Pharmacy 10/19/19 Jenna Fitzpatrick APRN.CUSTOMER ACQUISITION MANAGER [address] [place] [address] [facility] 02/28/24 Elvis Kearney APRN.CUSTOMER ACQUISITION MANAGER [address] [place] [address] [facility] 03/08/24 Building Supplies Salesperson Retail Relationship Specialty Start Date End Date Stas Mora MD [address] [facility] [place] [address] PCP - General 08/02/08, Pharmacist [address] [place] [address] Pharmacist Pharmacy 10/19/19 Jenna Fitzpatrick PRINTING SCREEN ASSEMBLER.CUSTOMER ACQUISITION MANAGER [address] [facility] [place] [address] [facility] 02/28/24 Elvis Kearney APRN.CUSTOMER ACQUISITION MANAGER [address] [facility] [place] [address] [facility] 03/08/24 Building Supplies Salesperson Retail Relationship Specialty Start Date End Date Stas Mora MD [address] [place] [address] PCP - General 08/02/08, Pharmacist [phone] [place] [address] Pharmacist Pharmacy 10/19/19 Jenna Fitzpatrick, PRINTING SCREEN ASSEMBLER.CUSTOMER ACQUISITION MANAGER [address] [place] [address] [facility] 02/28/24 Elvis Kearney PRINTING SCREEN ASSEMBLER.CUSTOMER ACQUISITION MANAGER [address] [place] [address] [facility] Reg[facility] Medicine 03/08/24 Building Supplies Salesperson Retail Relationship Specialty Start Date End Date Stas Mora MD [address] [place] [address] PCP - General 08/02/08, Pharmacist [address] [place] [address] Pharmacist Pharmacy 10/19/19 Jenna Fitzpatrick, PRINTING SCREEN ASSEMBLER.CUSTOMER ACQUISITION MANAGER [address] [place] [address] [facility] 02/28/24 Elvis Kearney, PRINTING SCREEN ASSEMBLER.CUSTOMER ACQUISITION MANAGER [address] [place] [address] [facility] 03/08/24 Building Supplies Salesperson Retail Relationship Specialty Start Date End Date Stas Mora MD [address] [place] [address] PCP - General 08/02/08, Pharmacist [phone] [place] [address] Pharmacist Pharmacy 10/19/19 Jenna Fitzpatrick APRN.CUSTOMER ACQUISITION MANAGER [address] [facility] [place] [address] [facility] 02/28/24 Elvis Kearney APRN.CUSTOMER ACQUISITION MANAGER [address] [facility] [place] [address] [facility] 03/08/24 Building Supplies Salesperson Retail Relationship Specialty Start Date End Date Stas Mora MD [address] [place] [address] PCP - General 08/02/08, Pharmacist [address] [place] [address] Pharmacist Pharmacy 10/19/19 Jenna Fitzpatrick APRN.CUSTOMER ACQUISITION MANAGER [address] [place] [address] [facility] 02/28/24 Elvis Keareny APRN.CUSTOMER ACQUISITION MANAGER [address] [facility] [place] [address] [facility] 03/08/24 Building Supplies Salesperson Retail Relationship Specialty Start Date End Date Stas Mora MD [address] [facility] [place] [address] PCP - General 08/02/08, Pharmacist [address] [place] [address] Pharmacist Pharmacy 10/19/19 Jenna Fitzpatrick APRN.CUSTOMER ACQUISITION MANAGER [address] [facility] [place] [address] [facility] 02/28/24 Elvis Kearney APRN.CUSTOMER ACQUISITION MANAGER [address] [place] [address] [facility] 03/08/24 Building Supplies Salesperson Retail Relationship Specialty Start Date End Date Stas Mora MD [address] [place] [address] PCP - General 08/02/08, Pharmacist [address] [place] [address] Pharmacist Pharmacy 10/19/19 Jenna Fitzpatrick PRINTING SCREEN ASSEMBLER.CUSTOMER ACQUISITION MANAGER [address] [place] [address] [facility] 02/28/24 Elvis Kearney PRINTING SCREEN ASSEMBLER.CUSTOMER ACQUISITION MANAGER [address] [place] [address] [facility] 03/08/24 Building Supplies Salesperson Retail Relationship Specialty Start Date End Date Stas Mora MD [address] [place] [address] PCP - General 08/02/08, Pharmacist [address] [place] [address] Pharmacist Pharmacy 10/19/19 Jenna Fitzpatrick PRINTING SCREEN ASSEMBLER.CUSTOMER ACQUISITION MANAGER [address] [place] [address] [facility] 02/28/24 Elvis Kearney APRN.CUSTOMER ACQUISITION MANAGER [address] [place] [address] [facility] 03/08/24 Building Supplies Salesperson Retail Relationship Specialty Start Date End Date Stas Mora MD [address] [place] [address] PCP - General 08/02/08, Pharmacist [address] [place] [address] Pharmacist Pharmacy 10/19/19 Jenna Fitzpatrick APRN.CUSTOMER ACQUISITION MANAGER [address] [place] [address] [facility] 02/28/24 Elvis Kearney APRN.CUSTOMER ACQUISITION MANAGER [address] [place] [address] [facility] 03/08/24 Building Supplies Salesperson Retail Relationship Specialty Start Date End Date Stas Mora MD [address] [place] [address] PCP - General 08/02/08, Pharmacist [address] [place] [address] Pharmacist Pharmacy 10/19/19 Jenna Fitzpatrick APRN.CUSTOMER ACQUISITION MANAGER [address] [place] [address] [facility] 02/28/24 Elvis Kearney PRINTING SCREEN ASSEMBLER.CUSTOMER ACQUISITION MANAGER [address] [place] [address] [facility] 03/08/24 Building Supplies Salesperson Retail Relationship Specialty Start Date End Date Stas Mora MD [address] [place] [address] PCP - General 08/02/08, Pharmacist [address] [place] [address] Pharmacist Pharmacy 10/19/19 Jenna Fitzpatrick APRN.CUSTOMER ACQUISITION MANAGER [address] [place] [address] [facility] 02/28/24 Elvis Kearney APRN.CUSTOMER ACQUISITION MANAGER [address] [place] [address] [facility] 03/08/24 Building Supplies Salesperson Retail Relationship Specialty Start Date End Date Stas Mora MD [address] [place] [address] PCP - General 08/02/08, Pharmacist [address] [place] [address] Pharmacist Pharmacy 10/19/19 Jenna Fitzpatrick APRN.CUSTOMER ACQUISITION MANAGER [address] [place] [address] [facility] 02/28/24 Elvis Kearney APRN.CUSTOMER ACQUISITION MANAGER [address] [place] [address] [facility] 03/08/24 Building Supplies Salesperson Retail Relationship Specialty Start Date End Date Stas Mora MD [address] [place] [address] PCP - General 08/02/08, Pharmacist [address] [place] [address] Pharmacist Pharmacy 10/19/19 Jenna Fitzpatrick PRINTING SCREEN ASSEMBLER.CUSTOMER ACQUISITION MANAGER [address] [place] [address] [facility] 02/28/24 Elvis Kearney APRN.CUSTOMER ACQUISITION MANAGER [address] [place] [address] [facility] 03/08/24 Building Supplies Salesperson Retail Relationship Specialty Start Date End Date Stas Mora MD [address] [place] [address] PCP - General 08/02/08, Pharmacist [address] [place] [address] Pharmacist Pharmacy 10/19/19 Jenna Fitzpatrick APRN.CUSTOMER ACQUISITION MANAGER [address] [place] [address] [facility] 02/28/24 Elvis Kearney APRN.CUSTOMER ACQUISITION MANAGER [address] [place] [address] [facility] 03/08/[facility] Building Supplies Salesperson Retail Relationship Specialty Start Date End Date Stas Mora MD [address] [place] [address] PCP - General 08/02/08, Pharmacist [address] [place] [address] Pharmacist Pharmacy 10/19/19 Elvis Kearney APRN.CUSTOMER ACQUISITION MANAGER [address] [place] [address] [facility] 03/08/24 Building Supplies Salesperson Retail Relationship Specialty Start Date End Date Stas Mora MD [address] [place] [address] PCP - General 08/02/08, Pharmacist [address] [place] [address] Pharmacist Pharmacy 10/19/19 Elvis Kearney APRN.CUSTOMER ACQUISITION MANAGER [address] [place] [address] [facility] 03/08/24 Team Status: Active Member Role Status [...] Provider Active Sta rt: September 06, 2024 Building Supplies Salesperson Retail Relationship Specialty Start Date End Date Stas Mora MD [address] [place], [place] [id number] PCP - General 08/02/08 13, Pharmacist [phone] [facility] [address] [place], [place] [address] Pharmacist Pharmacy 10/19/19 Elvis Kearney APRN.CUSTOMER ACQUISITION MANAGER [address] [facility] [place] [address] [facility] 03/08/24 Team Status: Active Member [...] 2024 End: September 07, 2024 Halina Carmona ZINC FURNACE CHARGER, ZINC FURNACE CHARGER-C Attending Provider Active Start: September 07, 2024 [...] End: September 08, 2024 Halina Carmona NP, ZINC FURNACE CHARGER-C Attending Provider Active Start: September 08, 2024 [...] 2024 End: September 30, 2024 Halina Carmona ZINC FURNACE CHARGER, ZINC FURNACE CHARGER-C Attending Provider Active Start: September 30, 2024 [...] End: October 20, 2024 Halina Carmona NP, ZINC FURNACE CHARGER-C Attending Provider Active Start: October 20, 2024 [...] 2024 End: September 30, 2024 Halina Carmona NP ZINC FURNACE CHARGER-C Attending Provider Active Start: September 30, 2024 [...] 2024 End: October 20, 2024 Halina Carmona ZINC FURNACE CHARGER ZINC FURNACE CHARGER-C Attending Provider Active Start: October 20, 2024 [...] September 26, 2024 End: September 26, 2024 Team Status: Active Member Role/Relationship Status Dates Dr. Stas Mora MD Primary care physician Active Team Status: Active Member Role/Relationship Status Dates Dr. Stas Mora MD Primary care physician Active Start: September 19, 2024 Shayy GAMA MD Attending physician Active Start: September 19, 2024 Team Status: Inactive Member Role/Relationship Status Dates Dr. Stas Mora MD Primary care physician Active Start: September 20, 2024 End: September 20, 2024 Dr. Shayy Curtis MD Attending physician Active Start: September 20, 2024 End: September 20, 2024 Team Status: Active Member Role/Relationship Status Dates Dr. Stas Mora MD Primary care physician Active Start: September 21, 2024 Shayy GAMA MD Attending physician Active Start: September 21, 2024 Team Status: Active Member Role/Relationship Status Dates Dr. Stas Mora MD Primary care physician Active Start: September 23, 2024 Shayy GAMA MD Attending physician Active Start: September 23, 2024 Team Status: Inactive Member Role/Relationship Status Dates Dr. Stas Mora MD Primary care physician Active Start: September 26, 2024 End: September 26, 2024 Shayy GAMA MD Attending physician Active Start: September 26, 2024 End: September 26, 2024 Team Status: Inactive Member Role/Relationship Status Dates Dr. Stas Mora MD Primary care physician Active Start: September 28, 2024 End: September 28, 2024 Shayy GAMA MD Attending physician Active Start: September 28, 2024 End: September 28, 2024 Team Status: Active Member Role/Relationship Status Dates Dr. Stas Mora MD Primary care physician Active Start: September 29, 2024 Shayy GAMA MD Attending physician Active Start: September 29, 2024 Team Status: Inactive Member Role/Relationship Status Dates Dr. Stas Mora MD Primary care physician Active Start: September 30, 2024 End: September 30, 2024 Halina Carmona NP ZINC FURNACE CHARGER-C Attending physician Active Start: September 30, 2024 End: September 30, 2024 Team Status: Active Member Role/Relationship Status Dates Dr. Stas Mora MD Primary care physician Active Start: October 05, 2024 Shayy GAMA MD Attending physician Active Start: October 05, 2024 Team Status: Active Member Role/Relationship Status Dates Dr. Stas Mora MD Primary care physician Active Start: October 06, 2024 Shayy GAMA MD Attending physician Active Start: October 06, 2024 Team Status: Inactive Member Role/Relationship Status Dates Dr. Stas Mora MD Primary care physician Active Start: October 20, 2024 End: October 20, 2024 Halina Carmona NP ZINC FURNACE CHARGER-C Attending physician Active Start: October 20, 2024 End: October 20, 2024 Team Status: Inactive Member Role/Relationship Status Dates Dr. Stas Mora MD Primary care physician Active Start: October 25, 2024 End: October 25, 2024 Dr. Shayy Curtis MD Attending physician Active Start: October 25, 2024 End: October 25, 2024 Team Status: Active Member Role/Relationship Status Dates Dr. Stas Mora MD Primary care physician Active Start: October 31, 2024 Shayy GAMA MD Attending physician Active Start: October 31, 2024 Team Status: Active Member Role/Relationship Status Dates Dr. Stas Mora MD Primary care physician Active Start: November 02, 2024 Shayy GAMA MD Attending physician Active Start: November 02, 2024 Team Status: Active Member Role/Relationship Status Dates Dr. Stas Mora MD Primary care physician Active Start: November 23, 2024 Shayy AGMA MD Attending physician Active Start: November 23, 2024 Team Status: Inactive Member Role/Relationship Status Dates Dr. Stas Mora MD Primary care physician Active Start: November 24, 2024 End: November 24, 2024 Halina Carmona ZINC FURNACE CHARGER, ZINC FURNACE CHARGER-C Attending physician Active Start: November 24, 2024 End: November 24, 2024 Team Status: Active Member Role/Relationship Status Dates Dr. Stas Mora MD Primary care physician Active Start: November 25, 2024 Shayy GAMA MD Attending physician Active Start: November 25, 2024 Team Status: Inactive Member Role/Relationship Status Dates Dr. Stas Mora MD Primary care physician Active Start: November 29, 2024 End: November 29, 2024 Dr. Shayy Curtis MD Attending physician Active Start: November 29, 2024 End: November 29, 2024 Team Status: Active Member Role/Relationship Status Dates Dr. Stas Mora MD Primary care physician Active Start: November 30, 2024 Shayy GAMA MD Attending physician Active Start: November 30, 2024 Team Status: Active Member Role/Relationship Status Dates Dr. Stas Mora MD Primary care physician Active Start: December 14, 2024 Shayy GAMA MD Attending physician Active Start: December 14, 2024 Team Status: Active Member Role/Relationship Status Dates Dr. Stas Mora MD Primary care physician Active Start: December 21, 2024 Shayy GAMA MD Attending physician Active Start: December 21, 2024 Team Status: Active Member Role/Relationship Status Dates Dr. Stas Mora MD Primary care physician Active Start: January 10, 2025 Shayy GAMA MD Attending physician Active Start: January 10, 2025 Goals (unrecognized section and content) Goals may [...] BE BASED ON THE PRIMARY CLINICAL RECORDS. [facility] [employer] [facility]. provides no warranty or guarantee of the accuracy or completeness of information in this document.
[2025-01-23 07:13] LABS: INR Fingerstick 2.7
== END ==
LOC: OLS.WHLCAR 05:00
PROVIDERS: PCP Family Medicine; Visit Provider Internal Medicine
DX: I48.91 Unspecified atrial fibrillation (principal)
CPT/HCPCS: 36416; 85610

== ENCOUNTER → 2025-01-25 05:00 | Outpatient (REF) | payer MEDICARE, SELFPAY ==
--- OUTSIDE RECORDS SUMMARY | 2025-01-25 04:49 | XMS RPT_ITS | CCD ---
Author Organization [facility] Inform ion Partnership [facility] Care Team Providers Care Bean Roaster Name Role Phone TEE, DARRELL E Unavailable [...] Dr. Stas Mora Primary Care Provider [phone] Dr. Inderjit Gillespie Emergency Provider Dr. Dirk [...] Unavailable STERLING LYNCH DO Attending Unavailable Tannhof PNEUMATIC TUBE FITTER.ARCHAEOLOGY PROFESSOR, Jenna Unavailable Caio PNEUMATIC TUBE FITTER.ARCHAEOLOGY PROFESSOR, Elvis Unavailable LUCIANA CISNEROS C Referring Unavailable ELDERBROCK, STAS Trejo Primary Care Unavailable Tannhof PNEUMATIC TUBE FITTER.ARCHAEOLOGY PROFESSOR, Jenna Unavailable Unavail able Tannhof PNEUMATIC TUBE FITTER.ARCHAEOLOGY PROFESSOR, Jenna Unavailable Morgan POLANCO, Dr. Ruiz Primary Care Provider Jose Miguel POLANCO, Dr. Jansen Emergency Provider Priscilla POLANCO, Dr. Kathy Bearden Admit Provider Priscilla POLANCO, Dr. Kathy Bearden Attending Provider Priscilla POLANCO, Dr. Kathy Bearden Other Provider Alberto POLANCO, Dr. Shoemaker Attending Provider Alberto POLANCO, Dr. Shoemaker Other Provider Shayy Cutris MD Attending Provider UnavailShayy Hernandez MD Referring Provider Unavailrachel Carmona ECOLOGICAL ECONOMIST-CHalina Attending Provider Ever POLANCO, Dr. Lucas Attending Provider Morgan POLANCO, Dr. Ruiz Primary Care Physician Shayy Curtis MD Attending Physician Unavail able Ever POLANCO, Dr. Lucas Attending Physician Kristine ECOLOGICAL ECONOMIST-C, Halina Attending Physician STAS MORA Primary Care Unavailable LUCIANA CISNEROS Attending Unavailable STAS MORA Primary Care Unavailable ELDERSTAS GUTIERREZ Referring Unavailable LORENZOBROSTAS BRICENO Primary Care Unavailable STAS MORA Attending Unavailable STAS MORA Primary Care Unavailable ELDERSTAS GUTIERREZ Referring Unavailable ELDERBROCK, STAS Trejo Primary Care Unavailable ELDERBROCK, STAS Trejo Referring Unavailable ELDERBROCK, STAS Trejo Referring Unavailable ELDERBROCK, STAS Trejo Primary Care Unavailable ELDERBROKAITY, STAS Trejo Primary Care Unavailable ELDERBROCK, STAS Trejo Referring Unavailable ELDERBROCK, STAS Trejo Primary Care Unavailable ELDERELLIOT, STAS Trejo Referring Unavailable ELDERBROCK, STAS Trejo Primary Care Unavailable GANTA, LUCIANA Referring Unavailable STAS MORA Primary Care Unavailable GANTA, LUCIANA Attending Unavailable ELDERSTAS GUTIERREZ Primary Care Unavailable ELDERSTAS GUTIERREZ Attending Unavailable ELDERSTAS GUTIERREZ Primary Care Unavailable GANTA, LUCIANA Attending Unavailable STAS MORA Referring Unavailable ELDERSTAS GUTIERREZ Primary Care Unavailable ELDERSTAS GUTIERREZ Referring Unavailable ELDERSTAS GUTIERREZ Primary Care Unavailable STAS MORA Referring Unavailable ELDERSTAS GUTIERREZ Primary Care Unavailable STAS MORA Referring Unavailable ELDERSTAS GUTIERREZ Primary Care Unavailable STAS MORA Referring Unavailable Elderbrock, Stas Primary Care Unavailable Oleghe OLS, Efewongbe Attending Unavailabl e Oleghe OLS, Efewongbe Attending Unavailabl e Elderbrock, Stas Primary Care Unavailable Oleghe OLS, Efewongbe Attending Unavailabl e Elderbrock, Stas Primary Care Unavailable Oleghe OLS, Efewongbe Attending Unavailabl e Elderbrock, Stas Primary Care Unavailable Oleghe OLS, Efewongbe Attending Unavailabl e Elderbrock, Stas Primary Care Unavailable Elderelliot, Stas Primary Care Unavailable Oleghe OLS, Efewongbe Attending Unavailabl e Elderbrock, Stas Primary Care Unavailable Koram, Kathy Monisha Consulting Unavailable Koram, Kathy Monisha Admitting Unavailable Alberto, Navid Attending Unavailable Oleghe OLS, Efewongbe Attending Unavailabl [...] Navid Attending Unavailable Alberto, Navid Consulting Unavailable Elderbrock, Stas [...] Admitting Unavailable Koram, Kathy Monisha Attending Unavailable Tickton, Halina Attending Unavailable Elderbrock, Stas Primary Care Unavailable Tickton, Halina Attending Unavailable Elderbrock, Stas Primary Care Unavailable Elderbrock, Stas Primary Care Unavailable Oleghe, Efewongbe Attending Unavailable Elderbrock, Stas Primary Care Unavailable Oleghe, Efewongbe Attending Unavailable Oleghe, Efewongbe Attending Unavailable Elderbrock, Stas Primary Care Unavailable Elderbrock, Stas Primary Care Unavailable Tickton, Halina Attending Unavailable Elderbrock, Stas Primary Care Unavailable Tickton, Halina Attending Unavailable Elderbrock, Stas Primary Care Unavailable Tickton, Halina Attending Unavailable Oleghe OLS, Efewongbe Attending [...] unspecified vessel or lesion type, unspecified whether [place] or transplanted heart Take 1 tablet by [...] hydrochloride 10 mg oral tablet (20 sources) K-wefaye-Q-aspartate Receptor Antagonist Start: 06-02-19 End: 11-29-19 take 1 tablet by mouth twice daily metoprolol tartrate 50 mg oral tablet (1 source) beta-Adrenergic Jazmin Start: 01-02-20 Lopressor 50 mg oral tablet Dose : 25 mg = 0.5 tab(s), PO, BID, 0 Refill(s), current med (Hx) Start Date: 01/01/06 Status: Ordered polyethylene glycol 3350 [id number] mg powder for oral solution (12 sources) [...] on above: Take [address] [facility] daily at bedtime. vardenafil 10 [...] disease (20 sources) Atherosclerotic heart disease of [place] coronary artery without angina pectoris; Translations: [Coronary [...] sources) Long-term current use of anticoagulant; Translations: [assisted (current) use of anticoagulants] Onset: 09-22-2016 Episodic [...] severity, with other behavioral disturbance] Onset: 01-19-2025 Past or Other Problems Problem Classification Problem [...] 04-24-2011 04-24-2011 Episodic Other aftercare (3 sources) assisted (current) [...] Test Name Value Interpretation Reference Range Facility [facility] 01-19-2025 [facility] Letter Text Normal [facility] normalized rat io (INR) measurement by fingerstickOrdered By: Shayy Curtis on 01-10-2025 INR Coag (BldC) [Relative time] 1.9 [facility] Comment on above: Critical Value > 4.0 Whole blood prothrombin time Ordered By: Shayy Curtis on 01-10-2025 PT Coag (Bld) [Time] 21.0 s High 11.7-14.[address] [facility] Absolute lymphocyte countOrd ered By: Shayy Curtis on 12-21-2024 Lymphocytes Auto (Unsp spec) [#/Vol] 1.31 10*3/uL 0.83-4.51 [facility] Absolute neutrophil countOrd ered By: Shayy Curtis on 12-21-2024 Neutrophils (Bld) [#/Vol] 3.6 10*3/uL 2.0-7.7 [facility] Anion gap in Serum or Plasma Ordered By: Shayy Curtis on 12-21-2024 Anion gap [Moles/Vol] 9 mmol/L 5-15 [facility] Automated lymphocyte count a s percentage of total leukocytesOrdered By: Shayy Curtis on 12-21-2024 Lymphocytes/100 WBC Auto (Unsp spec) 23.0 % 19-41 [facility] BUN/creatinine ratioOrdered By: Shayy Curtis on 12-21-2024 Urea nitrogen/Creatinine [Mass ratio] 32.5 mg/mg High 10-20 [facility] Basophil percentageOrdered B y: Shayy Curtis on 12-21-2024 Basophils/100 WBC (Bld) 0.7 % 0-1 [facility] Carbon dioxide, total [Moles /volume] in Central venous bloodOrdered By: Shayy Curtis on 12-21-2024 CO2 [Moles/Vol] 25.8 mmol/L 21.0-32.0 [facility] Chloride assayOrdered By: Hung Curtis on 12-21-2024 Chloride [Moles/Vol] 107 mmol/L 98-[address] [facility] Eosinophil percentageOrdered By: baldomero Curtis on 12-21-2024 Eosinophils/100 WBC (Bld) 2.3 % 0-5 [facility] Erythrocyte distribution wid th ratioOrdered By: Shayy Curtis on 12-21-2024 Erythrocyte distribution width (RBC) [Ratio] 15.9 % High 11.6-14.6 [facility] Erythrocyte distribution wid th standard deviationOrdered By: Shayy Curtis on 12-21-2024 Erythrocyte distribution width (RBC) [Ratio] 49.5 fl High 35.1-43.9 [facility] Glomerular filtration rate ( GFR) estimation/1.73 sq m using serum, plasma, or whole bOrdered By: Shayy Curtis on 12-21-2024 GFR/1.73 sq M.predicted among non-blacks MDRD (S/P/Bld) [Vol rate/Area] 90 mL/min/{1.73_m2} >60 [facility] Comment on above: mL/min/1.73m2 CKD-EP I Creatinine Equation (2020) Hematocrit Auto (Bld) [Volum e fraction]Ordered By: Shayy Curtis on 12-21-2024 Hematocrit (Bld) [Volume fraction] 34.9 % Low 40-54 [facility] Hemoglobin measurementOrdere d By: Shayy Curtis on 12-21-2024 Hemoglobin (Bld) [Mass/Vol] 10.6 g/dL Low 13.0-16.5 [facility] Immature granulocytes/100 WB C Auto (Bld)Ordered By: Shayy Curtis on 12-21-2024 Immature granulocytes/100 WBC (Bld) 0.200 % 0.0-0.9 [facility] Comment on above: IG% - Immature Granu locytes (promyelocytes, myelocytes and metamyelocytes) > 1% indicates that a LEFT SHIFT is Present. MCV (mean corpuscular volume ) determinationOrdered By: Shayy Curtis on 12-21-2024 MCV (RBC) [Entitic vol] 84.5 fL 80-94 [facility] Mean corpuscular hemoglobin (MCH) determinationOrdered By: baldomero Curtis on 12-21-2024 MCH (RBC) [Entitic mass] 25.7 pg Low 27.0-32.0 [facility] Mean corpuscular hemoglobin concentration (MCHC) determinationOrdered By: Shayy Curtis on 12-21-2024 MCHC (RBC) [Mass/Vol] 30.4 g/dL Low 32-36 [facility] Mean platelet volume determi nationOrdered By: Shayy Curtis on 12-21-2024 Platelet mean volume (Bld) [Entitic vol] 10.9 fL 6.2-12.0 [facility] Monocyte percentageOrdered B y: Shayy Curtis on 12-21-2024 Monocytes/100 WBC (Bld) 10.5 % High 0-10 [facility] Neutrophil percentageOrdered By: Shayy Curtis on 12-21-2024 Neutrophils/100 WBC (Bld) 63.3 % 47-70 [facility] Nucleated red blood cell per centageOrdered By: Shayy Curtis on 12-21-2024 Nucleated RBC/100 WBC (Bld) [Ratio] 0 % 0-5 [facility] Platelet countOrdered By: Hung Curtis on 12-21-2024 Platelets (Bld) [#/Vol] 217 10*3/uL 150-450 [facility] Potassium measurement (mass/ volume)Ordered By: Shayy Curtis on 12-21-2024 Potassium (Unsp spec) [Mass/Vol] 3.8 mmol/L 3.3-5.1 [facility] RBC Auto (Bld) [#/Vol]Ordere d By: Shayy Curtis on 12-21-2024 RBC (Bld) [#/Vol] 4.13 10*6/uL Low 4.6-6.2 [facility] Serum creatinine measurement (mass/volume)Ordered By: Shayy Curtis on 12-21-2024 Creatinine [Mass/Vol] 0.66 mg/dL Low 0.70-1.20 [facility] Serum glucose measurement (m ass/volume)Ordered By: Shayy Curtis on 12-21-2024 Glucose [Mass/Vol] 86 mg/dL 70-99 [facility] Serum or plasma calcium alvaro urement (mass/volume)Ordered By: Shayy Curtis on 12-21-2024 Calcium [Mass/Vol] 8.6 mg/dL 7.6-11.0 [facility] Serum or plasma urea nitroge n measurement (mass/volume)Ordered By: Shayy Curtis on 12-21-2024 Urea nitrogen [Mass/Vol] 22 mg/dL High 4-19 [facility] Sodium levelOrdered By: Latrice simonmaira Ever on 12-21-2024 Sodium [Moles/Vol] 142 mmol/L 133-145 [facility] White blood cell (WBC) count Ordered By: Shayy Curtis on 12-21-2024 WBC (Bld) [#/Vol] 5.7 10*3/uL 4.4-11.0 [facility] normalized rat io (INR) calculationOrdered By: Shayy Curtis on 12-14-2024 INR Coag (Bld) [Relative time] 2.5 {INR} [facility] Prothrombin timeOrdered By: Shayy Curtis on 12-14-2024 PT Coag (PPP) [Time] 27.6 s High 11.7-14.[address] [facility] normalized rat io (INR) measurement by fingerstickOrdered By: Shayy Curtis on 11-30-2024 INR Coag (BldC) [Relative time] 2.0 [facility] Comment on above: Critical Value > 4.0 Whole blood prothrombin time Ordered By: Shayy Curtis on 11-30-2024 PT Coag (Bld) [Time] 22.0 s High 11.7-14.[address] [facility] Bilirubin directOrdered By: Shayy Curtis on 11-25-2024 Bilirubin.direct [Mass/Vol] 0.32 mg/dL High 0.00-0.30 [facility] Bilirubin, totalOrdered By: Shayy Curtis on 11-25-2024 Bilirubin [Mass/Vol] 0.63 mg/dL 0.00-1.[address] [facility] Calculated very low density lipoprotein (VLDL) cholesterol measurementOrdered By: Shayy Curtis on 11-25-2024 Calculated very low density lipoprotein (VLDL) cholesterol measurement 10 mg/dL 5-40 [facility] LDL calc ser/plasOrdered By: Shayy Curtis on 11-25-2024 Cholesterol in LDL [Mass/Vol] 41 mg/dL [facility] Comment on above: Trenusejsg=536-176 m g/dL & Higher Sxvf=900 mg/dL or greaterFriedwald Equation for LDL-C Laboratory - Chemistry and C hemistry - challengeOrdered By: Shayy Curtis on 11-25-2024 AST [Catalytic activity/Vol] 24 U/L <38 [facility] Screening total cholesterol/ high density lipoprotein (HDL) cholesterol ratioOrdered By: Shayy Curtis on 11-25-2024 Cholesterol.total/Cho lesterol in HDL [Mass ratio] 2.59 {ratio} [facility] Serum globulin measurementOr dered By: Shayy Curtis on 11-25-2024 Globulin (S) [Mass/Vol] 2.3 g/dL 2.2-4.2 [facility] Serum or plasma alanine franks otransferase (ALT) measurementOrdered By: Shayy Curtis on 11-25-2024 ALT [Catalytic activity/Vol] 19 U/L <47 [facility] Serum or plasma albumin alvaro urement (mass/volume)Ordered By: Shayy Salazartomyradha on 11-25-2024 Albumin [Mass/Vol] 3.6 g/dL 3.4-4.8 [facility] Serum or plasma alkaline carole sphatase measurementOrdered By: Shayy Curtis on 11-25-2024 ALP [Catalytic activity/Vol] 119 U/L 40-129 [facility] Serum or plasma cholesterol in HDL measurement (mass/volume)Ordered By: Shayy Curtis on 11-25-2024 Cholesterol in HDL [Mass/Vol] 32 mg/dL Low >40 [facility] Comment on above: National Cholesterol Education Program (NCEP) guidelines:<40 mg/dL: Low HDL-cholesterol (major risk factor for CHD)>= 60 mg/dL: High HDL-cholesterol (negative risk factor for CHD)HDL-cholesterol is affected by a number of factors, e.g. smoking, exercise, hormones, sex and age. Serum or plasma cholesterol measurement (mass/volume)Ordered By: Shayy Curtis on 11-25-2024 Cholesterol [Mass/Vol] 83 mg/dL <201 [facility] Comment on above: Cholesterol level, D esirable <200 mg/dLBorderline high cholesterol 200-239 mg/dLHigh cholesterol >=240 mg/dLRecommendations of the NCEP Adult Treatment Panel for the following risk-cutoff thresholds for the [place] population. Total proteinOrdered By: Yazan Curtis on 11-25-2024 Protein [Mass/Vol] 5.8 g/dL Low 5.9-8.4 [facility] Triglycerides measurementOrd ered By: Shayy Curtis on 11-25-2024 Triglyceride [Mass/Vol] 49 mg/dL <199 [facility] Comment on above: The drugs N-Acetylcy steine and Metamizole may falsely depress this assay. Normal range: <150 mg/dLBorderline High: 150-199 mg/dLHigh: 200-499 mg/dLVery High: >500 mg/dL Absolute lymphocyte countOrd ered By: Shayy Curtis on 11-23-2024 Lymphocytes Auto (Unsp spec) [#/Vol] 1.15 10*3/uL 0.83-4.51 [facility] Absolute neutrophil countOrd ered By: Shayy Curtis on 11-23-2024 Neutrophils (Bld) [#/Vol] 4.4 10*3/uL 2.0-7.7 [facility] Anion gap in Serum or Plasma Ordered By: Shayy Curtis on 11-23-2024 Anion gap [Moles/Vol] 10 mmol/L 5-15 [facility] Automated lymphocyte count a s percentage of total leukocytesOrdered By: Shayy Curtis on 11-23-2024 Lymphocytes/100 WBC Auto (Unsp spec) 17.5 % Low 19-41 [facility] BUN/creatinine ratioOrdered By: Shayy Curtis on 11-23-2024 Urea nitrogen/Creatinine [Mass ratio] 23.9 mg/mg High 10-20 [facility] Basophil percentageOrdered B y: Shayy Curtis on 11-23-2024 Basophils/100 WBC (Bld) 0.9 % 0-1 [facility] Carbon dioxide, total [Moles /volume] in Central venous bloodOrdered By: Shayy Curtis on 11-23-2024 CO2 [Moles/Vol] 23.5 mmol/L 21.0-32.0 [facility] Chloride assayOrdered By: Hung Curtis on 11-23-2024 Chloride [Moles/Vol] 105 mmol/L 98-[address] [facility] Eosinophil percentageOrdered By: Shayy Curtis on 11-23-2024 Eosinophils/100 WBC (Bld) 2.9 % 0-5 [facility] Erythrocyte distribution wid th ratioOrdered By: Shayy Curtis on 11-23-2024 Erythrocyte distribution width (RBC) [Ratio] 16.9 % High 11.6-14.6 [facility] Erythrocyte distribution wid th standard deviationOrdered By: Shayy Curtis on 11-23-2024 Erythrocyte distribution width (RBC) [Ratio] 50.4 fl High 35.1-43.9 [facility] Glomerular filtration rate ( GFR) estimation/1.73 sq m using serum, plasma, or whole bOrdered By: Shayy Curtis on 11-23-2024 GFR/1.73 sq M.predicted among non-blacks MDRD (S/P/Bld) [Vol rate/Area] 90 mL/min/{1.73_m2} >60 [facility] Comment on above: mL/min/1.73m2 CKD-EP I Creatinine Equation (2020) Hematocrit Auto (Bld) [Volum e fraction]Ordered By: Shayy Curtis on 11-23-2024 Hematocrit (Bld) [Volume fraction] 36.3 % Low 40-54 [facility] Hemoglobin measurementOrdere d By: Shayy Curtis on 11-23-2024 Hemoglobin (Bld) [Mass/Vol] 11.6 g/dL Low 13.0-16.5 [facility] Immature granulocytes/100 WB C Auto (Bld)Ordered By: baldomero Curtis on 11-23-2024 Immature granulocytes/100 WBC (Bld) 0.300 % 0.0-0.9 [facility] Comment on above: IG% - Immature Granu locytes (promyelocytes, myelocytes and metamyelocytes) > 1% indicates that a LEFT SHIFT is Present. International normalized rat io (INR) calculationOrdered By: Shyay Curtis on 11-23-2024 INR Coag (Bld) [Relative time] 1.5 {INR} [facility] MCV (mean corpuscular volume ) determinationOrdered By: Shayy Curtis 11-23-2024 MCV (RBC) [Entitic vol] 82.1 fL 80-94 [facility] Mean corpuscular hemoglobin (MCH) determinationOrdered By: hollieslingerlandsirlanda Curtis 11-23-2024 MCH (RBC) [Entitic mass] 26.2 pg Low 27.0-32.0 [facility] Mean corpuscular hemoglobin concentration (MCHC) determinationOrdered By: Shayy Curtis on 11-23-2024 MCHC (RBC) [Mass/Vol] 32.0 g/dL 32-36 [facility] Mean platelet volume determi nationOrdered By: Hungbaldomero Curtis on 11-23-2024 Platelet mean volume (Bld) [Entitic vol] 10.0 fL 6.2-12.0 [facility] Monocyte percentageOrdered B y: Shayy Curtis on 11-23-2024 Monocytes/100 WBC (Bld) 11.3 % High 0-10 [facility] Neutrophil percentageOrdered By: Shayy Curtis on 11-23-2024 Neutrophils/100 WBC (Bld) 67.1 % 47-70 [facility] Nucleated red blood cell per centageOrdered By: Shayy Curtis on 11-23-2024 Nucleated RBC/100 WBC (Bld) [Ratio] 0 % 0-5 [facility] Platelet countOrdered By: Hung Curtis on 11-23-2024 Platelets (Bld) [#/Vol] 245 10*3/uL 150-450 [facility] Potassium measurement (mass/ volume)Ordered By: Shayy Curtis on 11-23-2024 Potassium (Unsp spec) [Mass/Vol] 4.0 mmol/L 3.3-5.1 [facility] Prothrombin timeOrdered By: Shayy Curtis on 11-23-2024 PT Coag (PPP) [Time] 17.9 s High 11.7-14.[address] [facility] RBC Auto (Bld) [#/Vol]Ordere d By: Shayy Curtis on 11-23-2024 RBC (Bld) [#/Vol] 4.42 10*6/uL Low 4.6-6.2 [facility] Serum creatinine measurement (mass/volume)Ordered By: Shayy Curtis on 11-23-2024 Creatinine [Mass/Vol] 0.65 mg/dL Low 0.70-1.20 [facility] Serum glucose measurement (m ass/volume)Ordered By: Shayy Curtis on 11-23-2024 Glucose [Mass/Vol] 103 mg/dL High 70-99 [facility] Serum or plasma calcium alvaro urement (mass/volume)Ordered By: Shayy Curtis on 11-23-2024 Calcium [Mass/Vol] 8.9 mg/dL 7.6-11.0 [facility] Serum or plasma urea nitroge n measurement (mass/volume)Ordered By: Shayy Curtis on 11-23-2024 Urea nitrogen [Mass/Vol] 16 mg/dL 4-19 [facility] Sodium levelOrdered By: Latrice timmy Ever on 11-23-2024 Sodium [Moles/Vol] 139 mmol/L 133-145 [facility] White blood cell (WBC) count Ordered By: Shayy Curtis on 11-23-2024 WBC (Bld) [#/Vol] 6.6 10*3/uL 4.4-11.0 [facility] Absolute lymphocyte countOrd ered By: Shayy Curtis on 11-02-2024 Lymphocytes Auto (Unsp spec) [#/Vol] 1.10 10*3/uL 0.83-4.51 [facility] Absolute neutrophil countOrd ered By: Shayy Curtis on 11-02-2024 Neutrophils (Bld) [#/Vol] 6.2 10*3/uL 2.0-7.7 [facility] Anion gap in Serum or Plasma Ordered By: Shayy Curtis on 11-02-2024 Anion gap [Moles/Vol] 10 mmol/L 5-15 [facility] Automated lymphocyte count a s percentage of total leukocytesOrdered By: Shayy Curtis on 11-02-2024 Lymphocytes/100 WBC Auto (Unsp spec) 13.5 % Low 19-41 [facility] BUN/creatinine ratioOrdered By: Shayy Curtis on 11-02-2024 Urea nitrogen/Creatinine [Mass ratio] 30.4 mg/mg High 10-20 [facility] Basophil percentageOrdered B y: Shayy Curtis on 11-02-2024 Basophils/100 WBC (Bld) 0.5 % 0-1 [facility] Carbon dioxide, total [Moles /volume] in Central venous bloodOrdered By: Shayy Curtis on 11-02-2024 CO2 [Moles/Vol] 22.3 mmol/L 21.0-32.0 [facility] Chloride assayOrdered By: Hung Curtis on 11-02-2024 Chloride [Moles/Vol] 106 mmol/L 98-[address] [facility] Eosinophil percentageOrdered By: Shayy Curtis 11-02-2024 Eosinophils/100 WBC (Bld) 1.4 % 0-5 [facility] Erythrocyte distribution wid th ratioOrdered By: baldomero Curtis on 11-02-2024 Erythrocyte distribution width (RBC) [Ratio] 18.0 % High 11.6-14.6 [facility] Erythrocyte distribution wid th standard deviationOrdered By: hollieslingerlandsirlanda Curtis on 11-02-2024 Erythrocyte distribution width (RBC) [Ratio] 53.7 fl High 35.1-43.9 [facility] Glomerular filtration rate ( GFR) estimation/1.73 sq m using serum, plasma, or whole bOrdered By: Shayy Curtis on 11-02-2024 GFR/1.73 sq M.predicted among non-blacks MDRD (S/P/Bld) [Vol rate/Area] 91 mL/min/{1.73_m2} >60 [facility] Comment on above: mL/min/1.73m2 CKD-EP I Creatinine Equation (2020) Hematocrit Auto (Bld) [Volum e fraction]Ordered By: Shayy Curtis 11-02-2024 Hematocrit (Bld) [Volume fraction] 35.3 % Low 40-54 [facility] Hemoglobin measurementOrdere d By: Shayy Curtis 11-02-2024 Hemoglobin (Bld) [Mass/Vol] 11.2 g/dL Low 13.0-16.5 [facility] Immature granulocytes/100 WB C Auto (Bld)Ordered By: Shayy Curtis on 11-02-2024 Immature granulocytes/100 WBC (Bld) 0.400 % 0.0-0.9 [facility] Comment on above: IG% - Immature Granu locytes (promyelocytes, myelocytes and metamyelocytes) > 1% indicates that a LEFT SHIFT is Present. MCV (mean corpuscular volume ) determinationOrdered By: Shayy Curtis on 11-02-2024 MCV (RBC) [Entitic vol] 81.5 fL 80-94 [facility] Mean corpuscular hemoglobin (MCH) determinationOrdered By: Shayy Curtis on 11-02-2024 MCH (RBC) [Entitic mass] 25.9 pg Low 27.0-32.0 [facility] Mean corpuscular hemoglobin concentration (MCHC) determinationOrdered By: Shayy Curtis on 11-02-2024 MCHC (RBC) [Mass/Vol] 31.7 g/dL Low 32-36 [facility] Mean platelet volume determi nationOrdered By: Shayy Curtis on 11-02-2024 Platelet mean volume (Bld) [Entitic vol] 10.3 fL 6.2-12.0 [facility] Monocyte percentageOrdered B y: Shayy Curtis on 11-02-2024 Monocytes/100 WBC (Bld) 7.7 % 0-10 [facility] Neutrophil percentageOrdered By: baldomero Curtis on 11-02-2024 Neutrophils/100 WBC (Bld) 76.5 % High 47-70 [facility] Nucleated red blood cell per centageOrdered By: hSayy Curtis on 11-02-2024 Nucleated RBC/100 WBC (Bld) [Ratio] 0 % 0-5 [facility] Platelet countOrdered By: Hung hollietimmy Curtis on 11-02-2024 Platelets (Bld) [#/Vol] 225 10*3/uL 150-450 [facility] Potassium measurement (mass/ volume)Ordered By: Shayy Curtis on 11-02-2024 Potassium (Unsp spec) [Mass/Vol] 3.9 mmol/L 3.3-5.1 [facility] RBC Auto (Bld) [#/Vol]Ordere d By: Shayy Curtis on 11-02-2024 RBC (Bld) [#/Vol] 4.33 10*6/uL Low 4.6-6.2 [facility] Serum creatinine measurement (mass/volume)Ordered By: Shayy Curtis on 11-02-2024 Creatinine [Mass/Vol] 0.62 mg/dL Low 0.70-1.20 [facility] Serum glucose measurement (m ass/volume)Ordered By: Shayy Curtis on 11-02-2024 Glucose [Mass/Vol] 110 mg/dL High 70-99 [facility] Serum or plasma calcium alvaro urement (mass/volume)Ordered By: Shayy Curtis on 11-02-2024 Calcium [Mass/Vol] 8.7 mg/dL 7.6-11.0 [facility] Serum or plasma urea nitroge n measurement (mass/volume)Ordered By: Shayy Curtis on 11-02-2024 Urea nitrogen [Mass/Vol] 19 mg/dL 4-19 [facility] Sodium levelOrdered By: Latrice Curtis on 11-02-2024 Sodium [Moles/Vol] 139 mmol/L 133-145 [facility] White blood cell (WBC) count Ordered By: Shayy Curtis on 11-02-2024 WBC (Bld) [#/Vol] 8.1 10*3/uL 4.4-11.0 [facility] International normalized rat io (INR) measurement by fingerstickOrdered By: Shayy Curtis on 10-31-2024 INR Coag (BldC) [Relative time] 1.8 [facility] Comment on above: Critical Value > 4.0 Whole blood prothrombin time Ordered By: Shayy Curtis on 10-31-2024 PT Coag (Bld) [Time] 20.2 s High 11.7-14.[address] [facility] International normalized rat io (INR) measurement by fingerstickOrdered By: Shayy Curtis on 10-06-2024 INR Coag (BldC) [Relative time] 2.1 [facility] Comment on above: Critical Value > 4.0 Whole blood prothrombin time Ordered By: Shayy Curtis on 10-06-2024 PT Coag (Bld) [Time] 22.6 s High 11.7-14.[address] [facility] Absolute lymphocyte countOrd ered By: Christineirlanda Gaberadha on 10-05-2024 Lymphocytes Auto (Unsp spec) [#/Vol] 1.54 10*3/uL 0.83-4.51 [facility] Absolute neutrophil countOrd ered By: Shayy Bernale on 10-05-2024 Neutrophils (Bld) [#/Vol] 4.2 10*3/uL 2.0-7.7 [facility] Anion gap in Serum or Plasma Ordered By: Shayy Salazartomyradha on 10-05-2024 Anion gap [Moles/Vol] 10 mmol/L 5-15 [facility] Automated lymphocyte count a s percentage of total leukocytesOrdered By: Shayy Salazartomyradha on 10-05-2024 Lymphocytes/100 WBC Auto (Unsp spec) 23.8 % 19-41 [facility] BUN/creatinine ratioOrdered By: Shayy Salazartomyradha on 10-05-2024 Urea nitrogen/Creatinine [Mass ratio] 18.2 mg/mg 10-20 [facility] Basophil percentageOrdered B y: Shayy Martintomyradha on 10-05-2024 Basophils/100 WBC (Bld) 0.6 % 0-1 [facility] Carbon dioxide, total [Moles /volume] in Central venous bloodOrdered By: Shayy Salazartomyradha on 10-05-2024 CO2 [Moles/Vol] 24.6 mmol/L 21.0-32.0 [facility] Chloride assayOrdered By: Hung hollietimmy Salazartomyradha on 10-05-2024 Chloride [Moles/Vol] 106 mmol/L 98-[address] [facility] Eosinophil percentageOrdered By: Christineirlanda Salazartomye on 10-05-2024 Eosinophils/100 WBC (Bld) 1.9 % 0-5 [facility] Erythrocyte distribution wid th ratioOrdered By: Hunghollietimmy Martintomye on 10-05-2024 Erythrocyte distribution width (RBC) [Ratio] 18.2 % High 11.6-14.6 [facility] Erythrocyte distribution wid th standard deviationOrdered By: Shayy Salazartomye on 10-05-2024 Erythrocyte distribution width (RBC) [Ratio] 52.4 fl High 35.1-43.9 [facility] Glomerular filtration rate ( GFR) estimation/1.73 sq m using serum, plasma, or whole bOrdered By: Shayy Curtis on 10-05-2024 GFR/1.73 sq M.predicted among non-blacks MDRD (S/P/Bld) [Vol rate/Area] 87 mL/min/{1.73_m2} >60 [facility] Comment on above: mL/min/1.73m2 CKD-EP I Creatinine Equation (2020) Hematocrit Auto (Bld) [Volum e fraction]Ordered By: Shayy Curtis on 10-05-2024 Hematocrit (Bld) [Volume fraction] 35.0 % Low 40-54 [facility] Hemoglobin measurementOrdere d By: Shayy Curtis on 10-05-2024 Hemoglobin (Bld) [Mass/Vol] 11.0 g/dL Low 13.0-16.5 [facility] Immature granulocytes/100 WB C Auto (Bld)Ordered By: baldomero Curtis on 10-05-2024 Immature granulocytes/100 WBC (Bld) 0.300 % 0.0-0.9 [facility] Comment on above: IG% - Immature Granu locytes (promyelocytes, myelocytes and metamyelocytes) > 1% indicates that a LEFT SHIFT is Present. MCV (mean corpuscular volume ) determinationOrdered By: Shayy Curtis on 10-05-2024 MCV (RBC) [Entitic vol] 78.8 fL Low 80-94 [facility] Mean corpuscular hemoglobin (MCH) determinationOrdered By: Shayy Curtis on 10-05-2024 MCH (RBC) [Entitic mass] 24.8 pg Low 27.0-32.0 [facility] Mean corpuscular hemoglobin concentration (MCHC) determinationOrdered By: baldomero Curtis 10-05-2024 MCHC (RBC) [Mass/Vol] 31.4 g/dL Low 32-36 [facility] Mean platelet volume determi nationOrdered By: Latriceslingerlandsirlanda Curtis 10-05-2024 Platelet mean volume (Bld) [Entitic vol] 10.3 fL 6.2-12.0 [facility] Monocyte percentageOrdered B y: Shayy Curtis on 10-05-2024 Monocytes/100 WBC (Bld) 8.5 % 0-10 [facility] Neutrophil percentageOrdered By: Shayy Martinsergio on 10-05-2024 Neutrophils/100 WBC (Bld) 64.9 % 47-70 [facility] Nucleated red blood cell per centageOrdered By: Hunghollietimmy Martinsergio on 10-05-2024 Nucleated RBC/100 WBC (Bld) [Ratio] 0 % 0-5 [facility] Platelet countOrdered By: Hung baldomero Ever on 10-05-2024 Platelets (Bld) [#/Vol] 235 10*3/uL 150-450 [facility] Potassium measurement (mass/ volume)Ordered By: Latricerobsonirlanda Salazartomyradha on 10-05-2024 Potassium (Unsp spec) [Mass/Vol] 4.1 mmol/L 3.3-5.1 [facility] RBC Auto (Bld) [#/Vol]Ordere d By: Latricetimmy Martinsergio on 10-05-2024 RBC (Bld) [#/Vol] 4.44 10*6/uL Low 4.6-6.2 [facility] Serum creatinine measurement (mass/volume)Ordered By: Shayy Curtis on 10-05-2024 Creatinine [Mass/Vol] 0.73 mg/dL 0.70-1.20 [facility] Serum glucose measurement (m ass/volume)Ordered By: Shayy Curtis on 10-05-2024 Glucose [Mass/Vol] 90 mg/dL 70-99 [facility] Serum or plasma calcium alvaro urement (mass/volume)Ordered By: Shayy Curtis on 10-05-2024 Calcium [Mass/Vol] 8.7 mg/dL 7.6-11.0 [facility] Serum or plasma urea nitroge n measurement (mass/volume)Ordered By: Shayy Curtis on 10-05-2024 Urea nitrogen [Mass/Vol] 13 mg/dL 4-19 [facility] Sodium levelOrdered By: Latrice timmy Ever on 10-05-2024 Sodium [Moles/Vol] 140 mmol/L 133-145 [facility] White blood cell (WBC) count Ordered By: Shayy Curtis on 10-05-2024 WBC (Bld) [#/Vol] 6.5 10*3/uL 4.4-11.0 [facility] International normalized rat io (INR) calculationOrdered By: Shayy Curtis on 09-29-2024 INR Coag (Bld) [Relative time] 3.3 {INR} [facility] Prothrombin timeOrdered By: Shayy Curtis on 09-29-2024 PT Coag (PPP) [Time] 34.4 s High 11.7-14.[address] [facility] Absolute lymphocyte countOrd ered By: Shayy Curtis on 09-28-2024 Lymphocytes Auto (Unsp spec) [#/Vol] 1.41 10*3/uL 0.83-4.51 [facility] Absolute neutrophil countOrd ered By: Shayy Curtis on 09-28-2024 Neutrophils (Bld) [#/Vol] 4.8 10*3/uL 2.0-7.7 [facility] Anion gap in Serum or Plasma Ordered By: Shayy Curtis on 09-28-2024 Anion gap [Moles/Vol] 13 mmol/L 5-15 [facility] Automated lymphocyte count a s percentage of total leukocytesOrdered By: Shayy Curtis on 09-28-2024 Lymphocytes/100 WBC Auto (Unsp spec) 20.1 % 19-41 [facility] BUN/creatinine ratioOrdered By: Shayy Curtis on 09-28-2024 Urea nitrogen/Creatinine [Mass ratio] 19.9 mg/mg 10-20 [facility] Basophil percentageOrdered B y: Shayy Curtis on 09-28-2024 Basophils/100 WBC (Bld) 0.6 % 0-1 [facility] Carbon dioxide, total [Moles /volume] in Central venous bloodOrdered By: Shayy Curtis on 09-28-2024 CO2 [Moles/Vol] 21.1 mmol/L 21.0-32.0 [facility] Chloride assayOrdered By: Hung Curtis on 09-28-2024 Chloride [Moles/Vol] 105 mmol/L 98-[address] [facility] Eosinophil percentageOrdered By: Shayy Curtis on 09-28-2024 Eosinophils/100 WBC (Bld) 2.0 % 0-5 [facility] Erythrocyte distribution wid th ratioOrdered By: Shayy Curtis on 09-28-2024 Erythrocyte distribution width (RBC) [Ratio] 18.3 % High 11.6-14.6 [facility] Erythrocyte distribution wid th standard deviationOrdered By: Shayy Curtis on 09-28-2024 Erythrocyte distribution width (RBC) [Ratio] 52.8 fl High 35.1-43.9 [facility] Glomerular filtration rate ( GFR) estimation/1.73 sq m using serum, plasma, or whole bOrdered By: Shayy Curtis on 09-28-2024 GFR/1.73 sq M.predicted among non-blacks MDRD (S/P/Bld) [Vol rate/Area] 88 mL/min/{1.73_m2} >60 [facility] Comment on above: mL/min/1.73m2 CKD-EP I Creatinine Equation (2020) Hematocrit Auto (Bld) [Volum e fraction]Ordered By: Shayy Curtis on 09-28-2024 Hematocrit (Bld) [Volume fraction] 37.0 % Low 40-54 [facility] Hemoglobin measurementOrdere d By: Shayy Curtis on 09-28-2024 Hemoglobin (Bld) [Mass/Vol] 11.5 g/dL Low 13.0-16.5 [facility] Immature granulocytes/100 WB C Auto (Bld)Ordered By: Shayy Curtis 09-28-2024 Immature granulocytes/100 WBC (Bld) 0.300 % 0.0-0.9 [facility] Comment on above: IG% - Immature Granu locytes (promyelocytes, myelocytes and metamyelocytes) > 1% indicates that a LEFT SHIFT is Present. MCV (mean corpuscular volume ) determinationOrdered By: Shayy Curtis on 09-28-2024 MCV (RBC) [Entitic vol] 80.3 fL 80-94 [facility] Mean corpuscular hemoglobin (MCH) determinationOrdered By: Shayy Curtis on 09-28-2024 MCH (RBC) [Entitic mass] 24.9 pg Low 27.0-32.0 [facility] Mean corpuscular hemoglobin concentration (MCHC) determinationOrdered By: Shayy Curtis on 09-28-2024 MCHC (RBC) [Mass/Vol] 31.1 g/dL Low 32-36 [facility] Mean platelet volume determi nationOrdered By: Shayy Curtis on 09-28-2024 Platelet mean volume (Bld) [Entitic vol] 10.5 fL 6.2-12.0 [facility] Monocyte percentageOrdered B y: Shayy Curtis on 09-28-2024 Monocytes/100 WBC (Bld) 8.8 % 0-10 [facility] Neutrophil percentageOrdered By: Shayy Curtis on 09-28-2024 Neutrophils/100 WBC (Bld) 68.2 % 47-70 [facility] Nucleated red blood cell per centageOrdered By: Shayy Curtis on 09-28-2024 Nucleated RBC/100 WBC (Bld) [Ratio] 0 % 0-5 [facility] Platelet countOrdered By: Hung Curtis on 09-28-2024 Platelets (Bld) [#/Vol] 280 10*3/uL 150-450 [facility] Potassium measurement (mass/ volume)Ordered By: Shayy Curtis on 09-28-2024 Potassium (Unsp spec) [Mass/Vol] 4.0 mmol/L 3.3-5.1 [facility] RBC Auto (Bld) [#/Vol]Ordere d By: Shayy Curtis on 09-28-2024 RBC (Bld) [#/Vol] 4.61 10*6/uL 4.6-6.2 [facility] Serum creatinine measurement (mass/volume)Ordered By: Shayy Curtis on 09-28-2024 Creatinine [Mass/Vol] 0.71 mg/dL 0.70-1.20 [facility] Serum glucose measurement (m ass/volume)Ordered By: Shayy Curtis on 09-28-2024 Glucose [Mass/Vol] 91 mg/dL 70-99 [facility] Serum or plasma calcium alvaro urement (mass/volume)Ordered By: Shayy Curtis on 09-28-2024 Calcium [Mass/Vol] 8.9 mg/dL 7.6-11.0 [facility] Serum or plasma urea nitroge n measurement (mass/volume)Ordered By: Shayy Curtis on 09-28-2024 Urea nitrogen [Mass/Vol] 14 mg/dL 4-19 [facility] Sodium levelOrdered By: Latrice Curtis on 09-28-2024 Sodium [Moles/Vol] 140 mmol/L 133-145 [facility] White blood cell (WBC) count Ordered By: Shayy Curtis on 09-28-2024 WBC (Bld) [#/Vol] 7.0 10*3/uL 4.4-11.0 [facility] International normalized rat io (INR) measurement by fingerstickOrdered By: Shayy Curtis on 09-26-2024 INR Coag (BldC) [Relative time] 2.5 [facility] Comment on above: Critical Value > 4.0 Whole blood prothrombin time Ordered By: Shayy Curtis on 09-26-2024 PT Coag (Bld) [Time] 27.1 s High 11.7-14.[address] [facility] [employer] normalized rat io (INR) calculationOrdered By: Shayy Curtis on 09-23-2024 INR Coag (Bld) [Relative time] 2.0 {INR} [facility] Prothrombin timeOrdered By: Shayy Curtis on 09-23-2024 PT Coag (PPP) [Time] 23.5 s High 11.7-14.[address] [facility] Absolute lymphocyte countOrd ered By: Shayy Curtis on 09-21-2024 Lymphocytes Auto (Unsp spec) [#/Vol] 1.35 10*3/uL 0.83-4.51 [facility] Absolute neutrophil countOrd ered By: Shayy Curtis on 09-21-2024 Neutrophils (Bld) [#/Vol] 4.3 10*3/uL 2.0-7.7 [facility] Anion gap in Serum or Plasma Ordered By: Shayy Curtis on 09-21-2024 Anion gap [Moles/Vol] 12 mmol/L 5-15 [facility] Automated lymphocyte count a s percentage of total leukocytesOrdered By: Latriceslingerlandsirlanda Curtis on 09-21-2024 Lymphocytes/100 WBC Auto (Unsp spec) 21.5 % 19-41 [facility] BUN/creatinine ratioOrdered By: [facility] on 09-21-2024 Urea nitrogen/Creatinine [Mass ratio] 15.8 mg/mg 10-20 [facility] Basophil percentageOrdered B y: Shayy Curtis on 09-21-2024 Basophils/100 WBC (Bld) 0.8 % 0-1 [facility] CNPNon 09-21-2024 [facility] ROBY FLORES ([id number]) 1935 M Date Time Provider Department 09/21/24 [facility] During your visit today, we recorded the following information about you: Petty Vargas 09/21/2024 9:23 AM Signed [facility]. Maria Guadalupe states [...] Encounter Status:Closed by MARTA PALACIO on 09/22/24 [facility] Carbon dioxide, total [Moles /volume] in Central venous bloodOrdered By: Shayy Curtis on 09-21-2024 CO2 [Moles/Vol] 23.2 mmol/L 21.0-32.0 [facility] Chloride assayOrdered By: Hung Curtis on 09-21-2024 Chloride [Moles/Vol] 104 mmol/L 98-[address] [facility] Eosinophil percentageOrdered By: Shayy Curtis on 09-21-2024 Eosinophils/100 WBC (Bld) 1.3 % 0-5 [facility] Erythrocyte distribution wid th ratioOrdered By: Shayy Curtis on 09-21-2024 Erythrocyte distribution width (RBC) [Ratio] 18.0 % High 11.6-14.6 [facility] Erythrocyte distribution wid th standard deviationOrdered By: Shayy Curtis on 09-21-2024 Erythrocyte distribution width (RBC) [Ratio] 50.8 fl High 35.1-43.9 [facility] Glomerular filtration rate ( GFR) estimation/1.73 sq m using serum, plasma, or whole bOrdered By: Shayy Curtis on 09-21-2024 GFR/1.73 sq M.predicted among non-blacks MDRD (S/P/Bld) [Vol rate/Area] 88 mL/min/{1.73_m2} >60 [facility] Comment on above: mL/min/1.73m2 CKD-EP I Creatinine Equation (2020) Hematocrit Auto (Bld) [Volum e fraction]Ordered By: Shayy Curtis on 09-21-2024 Hematocrit (Bld) [Volume fraction] 37.5 % Low 40-54 [facility] Hemoglobin measurementOrdere d By: Shayy Curtis on 09-21-2024 Hemoglobin (Bld) [Mass/Vol] 11.6 g/dL Low 13.0-16.5 [facility] Immature granulocytes/100 WB C Auto (Bld)Ordered By: Shayy Curtis on 09-21-2024 Immature granulocytes/100 WBC (Bld) 0.300 % 0.0-0.9 [facility] Comment on above: IG% - Immature Granu locytes (promyelocytes, myelocytes and metamyelocytes) > 1% indicates that a LEFT SHIFT is Present. International normalized rat io (INR) calculationOrdered By: Shayy Curtis on 09-21-2024 INR Coag (Bld) [Relative time] 1.7 {INR} [facility] MCV (mean corpuscular volume ) determinationOrdered By: Shayy Curtis 09-21-2024 MCV (RBC) [Entitic vol] 78.9 fL Low 80-94 [facility] Mean corpuscular hemoglobin (MCH) determinationOrdered By: Shayy Curtis on 09-21-2024 MCH (RBC) [Entitic mass] 24.4 pg Low 27.0-32.0 [facility] Mean corpuscular hemoglobin concentration (MCHC) determinationOrdered By: Shayy Curtis on 09-21-2024 MCHC (RBC) [Mass/Vol] 30.9 g/dL Low 32-36 [facility] Mean platelet volume determi nationOrdered By: Shayy Curtis on 09-21-2024 Platelet mean volume (Bld) [Entitic vol] 10.1 fL 6.2-12.0 [facility] Monocyte percentageOrdered B y: Shayy Curtis on 09-21-2024 Monocytes/100 WBC (Bld) 8.1 % 0-10 [facility] Neutrophil percentageOrdered By: Shayy Curtis on 09-21-2024 Neutrophils/100 WBC (Bld) 68.0 % 47-70 [facility] Nucleated red blood cell per centageOrdered By: Shayy Curtis on 09-21-2024 Nucleated RBC/100 WBC (Bld) [Ratio] 0 % 0-5 [facility] Platelet countOrdered By: Hung Curtis on 09-21-2024 Platelets (Bld) [#/Vol] 318 10*3/uL 150-450 [facility] Potassium measurement (mass/ volume)Ordered By: Shayy Curtis on 09-21-2024 Potassium (Unsp spec) [Mass/Vol] 4.0 mmol/L 3.3-5.1 [facility] Prothrombin timeOrdered By: Shayy Curtis on 09-21-2024 PT Coag (PPP) [Time] 20.6 s High 11.7-14.[address] [facility] RBC Auto (Bld) [#/Vol]Ordere d By: Shayy Curtis on 09-21-2024 RBC (Bld) [#/Vol] 4.75 10*6/uL 4.6-6.2 [facility] Serum creatinine measurement (mass/volume)Ordered By: Shayy Curtis on 09-21-2024 Creatinine [Mass/Vol] 0.70 mg/dL 0.70-1.20 [facility] Serum glucose measurement (m ass/volume)Ordered By: Shayy Curtis on 09-21-2024 Glucose [Mass/Vol] 101 mg/dL High 70-99 [facility] Serum or plasma calcium alvaro urement (mass/volume)Ordered By: Shayy Curtis on 09-21-2024 Calcium [Mass/Vol] 9.2 mg/dL 7.6-11.0 [facility] Serum or plasma urea nitroge n measurement (mass/volume)Ordered By: Shayy Curtis on 09-21-2024 Urea nitrogen [Mass/Vol] 11 mg/dL 4-19 [facility] Sodium levelOrdered By: Hunghollie warner Ever on 09-21-2024 Sodium [Moles/Vol] 139 mmol/L 133-145 [facility] White blood cell (WBC) count Ordered By: Shayy Curtis on 09-21-2024 WBC (Bld) [#/Vol] 6.3 10*3/uL 4.4-11.0 [facility] International normalized rat io (INR) measurement by fingerstickOrdered By: Shayy Curtis on 09-19-2024 INR Coag (BldC) [Relative time] 1.9 [facility] Comment on above: Critical Value > 4.0 Whole blood prothrombin time Ordered By: Shayy Curtis on 09-19-2024 PT Coag (Bld) [Time] 21.5 s High 11.7-14.[address] [facility] normalized rat io (INR) calculationOrdered By: Shayy Curtis on 09-15-2024 INR Coag (Bld) [Relative time] 2.1 {INR} [facility] Prothrombin timeOrdered By: Shayy Curtis on 09-15-2024 PT Coag (PPP) [Time] 24.2 s High 11.7-14.[address] [facility] Absolute lymphocyte countOrd ered By: Shayy Curtis on 09-14-2024 Lymphocytes Auto (Unsp spec) [#/Vol] 1.57 10*3/uL 0.83-4.51 [facility] Absolute neutrophil countOrd ered By: Shayy Curtis on 09-14-2024 Neutrophils (Bld) [#/Vol] 5.1 10*3/uL 2.0-7.7 [facility] Anion gap in Serum or Plasma Ordered By: Shayy Curtis on 09-14-2024 Anion gap [Moles/Vol] 12 mmol/L 5-15 [facility] Automated lymphocyte count a s percentage of total leukocytesOrdered By: Shayy Curtis on 09-14-2024 Lymphocytes/100 WBC Auto (Unsp spec) 20.8 % 19-41 [facility] BUN/creatinine ratioOrdered By: Shayy Curtis on 09-14-2024 Urea nitrogen/Creatinine [Mass ratio] 21.8 mg/mg High 10-20 [facility] Basophil percentageOrdered B y: Shayy Curtis on 09-14-2024 Basophils/100 WBC (Bld) 1.1 % High 0-1 [facility] Carbon dioxide, total [Moles /volume] in Central venous bloodOrdered By: Shayy Curtis on 09-14-2024 CO2 [Moles/Vol] 21.8 mmol/L 21.0-32.0 [facility] Chloride assayOrdered By: Hung Curtis on 09-14-2024 Chloride [Moles/Vol] 107 mmol/L 98-[address] [facility] Eosinophil percentageOrdered By: Shayy Curtis on 09-14-2024 Eosinophils/100 WBC (Bld) 1.7 % 0-5 [facility] Erythrocyte distribution wid th ratioOrdered By: Shayy Curtis on 09-14-2024 Erythrocyte distribution width (RBC) [Ratio] 17.7 % High 11.6-14.6 [facility] Erythrocyte distribution wid th standard deviationOrdered By: Shayy Curtis on 09-14-2024 Erythrocyte distribution width (RBC) [Ratio] 51.1 fl High 35.1-43.9 [facility] Glomerular filtration rate ( GFR) estimation/1.73 sq m using serum, plasma, or whole bOrdered By: Shayy Curtis on 09-14-2024 GFR/1.73 sq M.predicted among non-blacks MDRD (S/P/Bld) [Vol rate/Area] 87 mL/min/{1.73_m2} >60 [facility] Comment on above: mL/min/1.73m2 CKD-EP I Creatinine Equation (2020) Hematocrit Auto (Bld) [Volum e fraction]Ordered By: Shayy Curtis on 09-14-2024 Hematocrit (Bld) [Volume fraction] 34.7 % Low 40-54 [facility] Hemoglobin measurementOrdere d By: Shayy Curtis on 09-14-2024 Hemoglobin (Bld) [Mass/Vol] 10.7 g/dL Low 13.0-16.5 [facility] Immature granulocytes/100 WB C Auto (Bld)Ordered By: Shayy Curtis on 09-14-2024 Immature granulocytes/100 WBC (Bld) 0.400 % 0.0-0.9 [facility] Comment on above: IG% - Immature Granu locytes (promyelocytes, myelocytes and metamyelocytes) > 1% indicates that a LEFT SHIFT is Present. MCV (mean corpuscular volume ) determinationOrdered By: Shayy Curtis on 09-14-2024 MCV (RBC) [Entitic vol] 78.9 fL Low 80-94 [facility] Mean corpuscular hemoglobin (MCH) determinationOrdered By: baldomero Curtis on 09-14-2024 MCH (RBC) [Entitic mass] 24.3 pg Low 27.0-32.0 [facility] Mean corpuscular hemoglobin concentration (MCHC) determinationOrdered By: Shayy Curtis on 09-14-2024 MCHC (RBC) [Mass/Vol] 30.8 g/dL Low 32-36 [facility] Mean platelet volume determi nationOrdered By: Shayy Curtis on 09-14-2024 Platelet mean volume (Bld) [Entitic vol] 10.6 fL 6.2-12.0 [facility] Monocyte percentageOrdered B y: Shayy Curtis on 09-14-2024 Monocytes/100 WBC (Bld) 8.5 % 0-10 [facility] Neutrophil percentageOrdered By: Shayy Curtis on 09-14-2024 Neutrophils/100 WBC (Bld) 67.5 % 47-70 [facility] Nucleated red blood cell per centageOrdered By: Shayy Curtis on 09-14-2024 Nucleated RBC/100 WBC (Bld) [Ratio] 0 % 0-5 [facility] Platelet countOrdered By: Hung hollietimmy Curtis on 09-14-2024 Platelets (Bld) [#/Vol] 291 10*3/uL 150-450 [facility] Potassium measurement (mass/ volume)Ordered By: Shayy Curtis on 09-14-2024 Potassium (Unsp spec) [Mass/Vol] 4.0 mmol/L 3.3-5.1 [facility] RBC Auto (Bld) [#/Vol]Ordere d By: Shayy Curtis on 09-14-2024 RBC (Bld) [#/Vol] 4.40 10*6/uL Low 4.6-6.2 [facility] Serum creatinine measurement (mass/volume)Ordered By: Shayy Curtis on 09-14-2024 Creatinine [Mass/Vol] 0.74 mg/dL 0.70-1.20 [facility] Serum glucose measurement (m ass/volume)Ordered By: Shayy Curtis on 09-14-2024 Glucose [Mass/Vol] 99 mg/dL 70-99 [facility] Serum or plasma calcium alvaro urement (mass/volume)Ordered By: Shayy Curtis on 09-14-2024 Calcium [Mass/Vol] 8.6 mg/dL 7.6-11.0 [facility] Serum or plasma urea nitroge n measurement (mass/volume)Ordered By: Shayy Curtis on 09-14-2024 Urea nitrogen [Mass/Vol] 16 mg/dL 4-19 [facility] Sodium levelOrdered By: Latrice kovacsradha Ever on 09-14-2024 Sodium [Moles/Vol] 141 mmol/L 133-145 [facility] White blood cell (WBC) count Ordered By: Shayy Curtis on 09-14-2024 WBC (Bld) [#/Vol] 7.5 10*3/uL 4.4-11.0 [facility] International normalized rat io (INR) measurement by fingerstickOrdered By: Shayy Curtis on 09-12-2024 INR Coag (BldC) [Relative time] 3.2 [facility] Comment on above: Critical Value > 4.0 Whole blood prothrombin time Ordered By: Shayy Curtis on 09-12-2024 PT Coag (Bld) [Time] 33.0 s High 11.7-14.[address] [facility] International normalized rat io (INR) measurement by fingerstickOrdered By: Shayy Curtis on 09-08-2024 INR Coag (BldC) [Relative time] 2.2 [facility] Comment on above: Critical Value > 4.0 Prothrombin Time w/INRon INR Normal [facility] Comment on above: Result Comment: Canc elled via OM: Order cancelled - Patient discharged Performed By: #### L 300.3900 #### [facility] Laboratory [address] [place], [place], [id number] PROTIME Normal 11.7-14.9 [facility] Comment on above: Result Comment: Canc elled via OM: Order cancelled - Patient discharged Performed By: #### L 300.3900 #### [facility] Laboratory [address] [place], [place], [id number] Whole blood prothrombin time Ordered By: Shayy Curtis on 09-08-2024 PT Coag (Bld) [Time] 23.8 s High 11.7-14.[address] [facility] Anion gap in Serum or Plasma Ordered By: Shayy Curtis on 09-07-2024 Anion gap [Moles/Vol] 10 mmol/L - [facility] BUN/creatinine ratioOrdered By: Shayy Curtis on 09-07-2024 Urea nitrogen/Creatinine [Mass ratio] 14.0 mg/mg - [facility] Bilirubin, totalOrdered By: Shayy Curtis on 09-07-2024 Bilirubin [Mass/Vol] 1.02 mg/dL 0.00-1.[address] [facility] Calculated very low density lipoprotein (VLDL) cholesterol measurementOrdered By: Shayy Curtis on 09-07-2024 Calculated very low density lipoprotein (VLDL) cholesterol measurement 13 mg/dL 5-40 [facility] Carbon dioxide, total [Moles /volume] in Central venous bloodOrdered By: Shayy Curtis on 09-07-2024 CO2 [Moles/Vol] 25.4 mmol/L 21.0-32.0 [facility] Chloride assayOrdered By: Hung Curtis on 09-07-2024 Chloride [Moles/Vol] 104 mmol/L 98-[address] [facility] Culture, Blood (WB)on 2024 CUB No growth in [address] [facility] Comment on above: Performed By: #### M 200.1000, L509.7001, L101.9900, L501.6710 #### [facility] Laboratory [address] [place], [place], [id number] Glomerular filtration rate ( GFR) estimation/1.73 sq m using serum, plasma, or whole bOrdered By: Shayy Curtis on 09-07-2024 GFR/1.73 sq M.predicted among non-blacks MDRD (S/P/Bld) [Vol rate/Area] 88 mL/min/{1.73_m2} >60 [facility] Comment on above: mL/min/1.73m2 CKD-EP I Creatinine Equation (2020) LDL calc ser/plasOrdered By: Shayy Curtis on 09-07-2024 Cholesterol in LDL [Mass/Vol] 64 mg/dL [facility] Comment on above: Bqjrfdsatw=372-344 m g/dL & Higher Iidr=678 mg/dL or greater Laboratory - Chemistry and C hemistry - challengeOrdered By: Shayy Curtis on 09-07-2024 AST [Catalytic activity/Vol] 33 U/L <38 [facility] Potassium measurement (mass/ volume)Ordered By: Shayy Curtis on 09-07-2024 Potassium (Unsp spec) [Mass/Vol] 3.8 mmol/L 3.3-5.1 [facility] Prothrombin Time w/INRon 06- 18-2025 INR Normal [facility] Comment on above: Result Comment: Canc elled via OM: Order cancelled - Patient discharged Performed By: #### L 300.3900 #### [facility] Laboratory [address] [place], [place], [id number] PROTIME Normal 11.7-14.9 [facility] Comment on above: Result Comment: Canc elled via OM: Order cancelled - Patient discharged Performed By: #### L 300.3900 #### [facility] Laboratory [address] [place], [place], [id number] Screening total cholesterol/ high density lipoprotein (HDL) cholesterol ratioOrdered By: Shayy Curtis on 09-07-2024 Cholesterol.total/Cho lesterol in HDL [Mass ratio] 3.75 {ratio} [facility] Serum creatinine measurement (mass/volume)Ordered By: Shayy Curtis on 09-07-2024 Creatinine [Mass/Vol] 0.70 mg/dL 0.70-1.20 [facility] Serum globulin measurementOr dered By: Shayy Curtis on 09-07-2024 Globulin (S) [Mass/Vol] 2.5 g/dL 2.2-4.2 [facility] Serum glucose measurement (m ass/volume)Ordered By: Shayy Curtis on 09-07-2024 Glucose [Mass/Vol] 107 mg/dL High 70-99 [facility] Serum or plasma alanine franks otransferase (ALT) measurementOrdered By: Shayy Curtis on 09-07-2024 ALT [Catalytic activity/Vol] 23 U/L <47 [facility] Serum or plasma albumin alvaro urement (mass/volume)Ordered By: Shayy Curtis on 09-07-2024 Albumin [Mass/Vol] 3.7 g/dL 3.4-4.8 [facility] Serum or plasma albumin/glob ulin mass ratioOrdered By: Shayy Curtis on 09-07-2024 Albumin/Globulin [Mass ratio] 1.5 {ratio} 0.9-2.4 [facility] Serum or plasma alkaline carole sphatase measurementOrdered By: Shayy Curtis on 09-07-2024 ALP [Catalytic activity/Vol] 123 U/L 40-129 [facility] Serum or plasma calcium alvaro urement (mass/volume)Ordered By: Shayy Curtis on 09-07-2024 Calcium [Mass/Vol] 8.7 mg/dL 7.6-11.0 [facility] Serum or plasma cholesterol in HDL measurement (mass/volume)Ordered By: Shayy Curtis on 09-07-2024 Cholesterol in HDL [Mass/Vol] 28 mg/dL Low >40 [facility] Comment on above: National Cholesterol Education Program (NCEP) guidelines:<40 mg/dL: Low HDL-cholesterol (major risk factor for CHD)>= 60 mg/dL: High HDL-cholesterol (negative risk factor for CHD)HDL-cholesterol is affected by a number of factors, e.g. smoking, exercise, hormones, sex and age. Serum or plasma cholesterol measurement (mass/volume)Ordered By: Shayy Curtis on 09-07-2024 Cholesterol [Mass/Vol] 105 mg/dL <201 [facility] Comment on above: Cholesterol level, D esirable <200 mg/dLBorderline high cholesterol 200-239 mg/dLHigh cholesterol >=240 mg/dLRecommendations of the NCEP Adult Treatment Panel for the following risk-cutoff thresholds for the [place] population. Serum or plasma urea nitroge n measurement (mass/volume)Ordered By: Shayy Curtis 09-07-2024 Urea nitrogen [Mass/Vol] 10 mg/dL 4-19 [facility] Sodium levelOrdered By: Latrice kovacsradha Ever on 09-07-2024 Sodium [Moles/Vol] 139 mmol/L 133-145 [facility] TSH DL <= 0.005 mIU/L QnOrde red By: Shayy Curtis on 09-07-2024 TSH Qn 0.300 uIU/mL 0.300-4.20 0 [facility] Total proteinOrdered By: Yazan Curtis on 09-07-2024 Protein [Mass/Vol] 6.2 g/dL 5.9-8.4 [facility] Triglycerides measurementOrd ered By: Shayy Curtis on 09-07-2024 Triglyceride [Mass/Vol] 63 mg/dL <199 [facility] Comment on above: The drugs N-Acetylcy steine and Metamizole may falsely depress this assay. Normal range: <150 mg/dLBorderline High: 150-199 mg/dLHigh: 200-499 mg/dLVery High: >500 mg/dL Vitamin B12 ser/plasOrdered By: Shayy Curtis on 09-07-2024 Cobalamin (Vitamin B12) [Mass/Vol] 519 pg/mL 180-914 [facility] Absolute lymphocyte countOrd ered By: Navid Dominguez on 09-06-2024 Lymphocytes Auto (Unsp spec) [#/Vol] 1.28 10*3/uL 0.83-4.51 [facility] Absolute neutrophil countOrd ered By: Navid Dominguez on 09-06-2024 Neutrophils (Bld) [#/Vol] 5.2 10*3/uL 2.0-7.7 [facility] Anion gap in Serum or Plasma Ordered By: Navid Dominguez on 09-06-2024 Anion gap [Moles/Vol] 10 mmol/L 5-15 [facility] Automated blood erythrocyte countOrdered By: Navid Dominguez on 09-06-2024 RBC (Bld) [#/Vol] 4.39 10*6/uL Low 4.6-6.2 [facility] Comment on above: Performed By: #### L 100.0100, L500.2500, L300.3900 #### [facility] Laboratory [address] [place], [address] Automated blood hematocrit ( percentage)Ordered By: Navid Dominguez on 09-06-2024 Hematocrit (Bld) [Volume fraction] 33.6 % Low 40-54 [facility] Comment on above: Performed By: #### L 100.0100, L500.2500, L300.3900 #### [facility] Laboratory [address] [place], [address] Automated lymphocyte count a s percentage of total leukocytesOrdered By: Navid Dominguez on 09-06-2024 Lymphocytes/100 WBC Auto (Unsp spec) 16.4 % Low 19-41 [facility] BUN/creatinine ratioOrdered By: Navid Dominguez on 09-06-2024 Urea nitrogen/Creatinine [Mass ratio] 14.4 mg/mg 10-20 [facility] Basic Metabolic Profile (BMP )on 09-06-2024 BUN/CRE 14.4 RATIO Normal 10-20 [facility] Comment on above: Performed By: #### M 200.1000, L509.7001, L101.9900, L501.6710 #### [facility] Laboratory [address] [place], [address] ECRCL 64.10 ml/min Normal 50-250 [facility] Comment on above: Performed By: #### M 200.1000, L509.7001, L101.9900, L501.6710 #### [facility] Laboratory [address] [place], [address] GAP 10 Normal 5-15 [facility] Comment on above: Performed By: #### M 200.1000, L509.7001, L101.9900, L501.6710 #### [facility] Laboratory [address] [place], [address] Potassium [Moles/Vol] 3.5 mmol/L Normal 3.3-5.1 [facility] Comment on above: Performed By: #### M 200.1000, L509.7001, L101.9900, L501.6710 #### [facility] Laboratory [address] [place], [address] Basophil percentageOrdered B y: Navid Dominguez on 09-06-2024 Basophils/100 WBC (Bld) 1.0 % Normal 0-1 [facility] Comment on above: Performed By: #### L 100.0100, L500.2500, L300.3900 #### [facility] Laboratory [address] [place], [address] CBC W/Diff, Automatedon 06- Absolute Lymph 1.28 X10 3/uL Normal 0.83-4.51 [facility] Comment on above: Performed By: #### L 100.0100, L500.2500, L300.3900 #### [facility] Laboratory [address] [place], [address] Absolute Neut 5.2 X10 3/uL Normal 2.0-7.7 [facility] Comment on above: Performed By: #### L 100.0100, L500.2500, L300.3900 #### [facility] Laboratory [address] [place], [address] IG% 0.400 Normal 0.0-0.9 [facility] Comment on above: Result Comment: IG% - Immature Granulocytes (promyelocytes, myelocytes and metamyelocytes) > 1% indicates that a LEFT SHIFT is Present. Performed By: #### L 100.0100, L500.2500, L300.3900 #### [facility] Laboratory [address] [place], [address] Lymphocytes/100 WBC (Bld) 16.4 % Low 19-41 [facility] Comment on above: Performed By: #### L 100.0100, L500.2500, L300.3900 #### [facility] Laboratory [address] [place], [address] Nucleated RBC (Bld) [#/Vol] 0 10*3/uL Normal 0-5 [facility] Comment on above: Performed By: #### L 100.0100, L500.2500, L300.3900 #### [facility] Laboratory [address] [place], [address] RDW SD 48.2 fl High 35.1-43.9 [facility] Comment on above: Performed By: #### L 100.0100, L500.2500, L300.3900 #### [facility] Laboratory [address] [place], [address] Carbon dioxide, total [Moles /volume] in Central venous bloodOrdered By: Navid Dominguez on 09-06-2024 CO2 [Moles/Vol] 24.9 mmol/L Normal 21.0-32.0 [facility] Comment on above: Performed By: #### M 200.1000, L509.7001, L101.9900, L501.6710 #### [facility] Laboratory [address] [place], [address] Chloride assayOrdered By: Cameron Dominguez on 09-06-2024 Chloride [Moles/Vol] 106 mmol/L Normal 98-[address] [facility] Comment on above: Performed By: #### M 200.1000, L509.7001, L101.9900, L501.6710 #### [facility] Laboratory [address] [place], [address] Eosinophil percentageOrdered By: Navid Dominguez on 09-06-2024 Eosinophils/100 WBC (Bld) 6.3 % High 0-5 [facility] Comment on above: Performed By: #### L 100.0100, L500.2500, L300.3900 #### [facility] Laboratory [address] [place], [address] Erythrocyte distribution wid th ratioOrdered By: Navid Dominguez on 09-06-2024 Erythrocyte distribution width (RBC) [Ratio] 17.4 % High 11.6-14.6 [facility] Comment on above: Performed By: #### L 100.0100, L500.2500, L300.3900 #### [facility] Laboratory [address] [place], [address] Erythrocyte distribution wid th standard deviationOrdered By: Navid Dominguez on 09-06-2024 Erythrocyte distribution width (RBC) [Ratio] 48.2 fl High 35.1-43.9 [facility] Glomerular filtration rate ( GFR) estimation/1.73 sq m using serum, plasma, or whole bOrdered By: Navid Dominguez on 09-06-2024 GFR/1.73 sq M.predicted among non-blacks MDRD (S/P/Bld) [Vol rate/Area] 87 mL/min/{1.73_m2} Normal >60 [facility] Comment on above: mL/min/1.73m2 CKD-EP I Creatinine Equation (2020) Result Comment: mL/m in/1.73m2 CKD-EPI Creatinine Equation (2020) Performed By: #### M 200.1000, L509.7001, L101.9900, L501.6710 #### [facility] [address] [place], [address] Hemoglobin measurementOrdere d By: Navid Dominguez on 09-06-2024 Hemoglobin (Bld) [Mass/Vol] 10.8 g/dL Low 13.0-16.5 [facility] Comment on above: Performed By: #### L 100.0100, L500.2500, L300.3900 #### [facility] Laboratory [address] [place], [address] Immature granulocytes/100 WB C Auto (Bld)Ordered By: Navid Dominguez on 09-06-2024 Immature granulocytes/100 WBC (Bld) 0.400 % 0.0-0.9 [facility] Comment on above: IG% - Immature Granu locytes (promyelocytes, myelocytes and metamyelocytes) > 1% indicates that a LEFT SHIFT is Present. International normalized rat io (INR) calculationOrdered By: Navid Dominguez on 09-06-2024 INR Coag (Bld) [Relative time] 2.4 {INR} [facility] MCV (mean corpuscular volume ) determinationOrdered By: Navid Dominguez on 09-06-2024 MCV (RBC) [Entitic vol] 76.5 fL Low 80-94 [facility] Comment on above: Performed By: #### L 100.0100, L500.2500, L300.3900 #### [facility] Laboratory [address] [place], [address] Mean corpuscular hemoglobin (MCH) determinationOrdered By: Navid Dominguez on 09-06-2024 MCH (RBC) [Entitic mass] 24.6 pg Low 27.0-32.0 [facility] Comment on above: Performed By: #### L 100.0100, L500.2500, L300.3900 #### [facility] Laboratory [address] [place], [address] Mean corpuscular hemoglobin concentration (MCHC) determinationOrdered By: Navid Dominguez on 09-06-2024 MCHC (RBC) [Mass/Vol] 32.1 g/dL Normal 32-36 [facility] Comment on above: Performed By: #### L 100.0100, L500.2500, L300.3900 #### [facility] Laboratory [address] [place], [place], [id number] Mean platelet volume determi nationOrdered By: Navid Dominguez on 09-06-2024 Platelet mean volume (Bld) [Entitic vol] 9.4 fL Normal 6.2-12.0 [facility] Comment on above: Performed By: #### L 100.0100, L500.2500, L300.3900 #### [facility] [address] [place], [address] Monocyte percentageOrdered B y: Navid Dominguez on 09-06-2024 Monocytes/100 WBC (Bld) 9.1 % Normal 0-10 [facility] Comment on above: Performed By: #### L 100.0100, L500.2500, L300.3900 #### [facility] Laboratory [address] [place], [address] Neutrophil percentageOrdered By: Navid Dominguez on 09-06-2024 Neutrophils/100 WBC (Bld) 66.8 % Normal 47-70 [facility] Comment on above: Performed By: #### L 100.0100, L500.2500, L300.3900 #### [facility] Laboratory [address] [place], [address] Nucleated red blood cell per centageOrdered By: Navid Dominguez on 09-06-2024 Nucleated RBC/100 WBC (Bld) [Ratio] 0 % 0-5 [facility] Platelet countOrdered By: Cameron Dominguez on 09-06-2024 Platelets (Bld) [#/Vol] 325 10*3/uL Normal 150-450 [facility] Comment on above: Performed By: #### L 100.0100, L500.2500, L300.3900 #### [facility] [address] [place], [address] Potassium measurement (mass/ volume)Ordered By: Navid Dominguez on 09-06-2024 Potassium (Unsp spec) [Mass/Vol] 3.5 mmol/L 3.3-5.1 [facility] Prothrombin Time w/INRon INR Coag (PPP) [Relative time] 2.4 {INR} Normal [facility] Comment on above: Performed By: #### M 200.1000, L509.7001, L101.9900, L501.6710 #### [facility] [address] [place], [address] Prothrombin timeOrdered By: Navid Dominguez on 09-06-2024 PT Coag (PPP) [Time] 27.0 s High 11.7-14.[address] [facility] Comment on above: Performed By: #### M 200.1000, L509.7001, L101.9900, L501.6710 #### [facility] [address] [place], [address] Serum creatinine measurement (mass/volume)Ordered By: Navid Dominguez on 09-06-2024 Creatinine [Mass/Vol] 0.73 mg/dL Normal 0.70-1.20 [facility] Comment on above: Performed By: #### M 200.1000, L509.7001, L101.9900, L501.6710 #### [facility] [address] [place], [address] Serum glucose measurement (m ass/volume)Ordered By: Navid Dominguez on 09-06-2024 Glucose [Mass/Vol] 109 mg/dL High 70-99 [facility] Comment on above: Performed By: #### M 200.1000, L509.7001, L101.9900, L501.6710 #### [facility] [address] [place], [address] Serum or plasma calcium alvaro urement (mass/volume)Ordered By: Navid Dominguez on 09-06-2024 Calcium [Mass/Vol] 8.7 mg/dL Normal 7.6-11.0 [facility] Comment on above: Performed By: #### M 200.1000, L509.7001, L101.9900, L501.6710 #### [facility] [address] [place], [address] Serum or plasma urea nitroge n measurement (mass/volume)Ordered By: Navid Dominguez on 09-06-2024 Urea nitrogen [Mass/Vol] 11 mg/dL Normal 4-19 [facility] Comment on above: Performed By: #### M 200.1000, L509.7001, L101.9900, L501.6710 #### [facility] [address] [place], [address] Sodium levelOrdered By: Kamilah Dominguez on 09-06-2024 Sodium [Moles/Vol] 141 mmol/L Normal 133-145 [facility] Comment on above: Performed By: #### M 200.1000, L509.7001, L101.9900, L501.6710 #### [facility] [address] [place], [address] White blood cell (WBC) count Ordered By: Navid Dominguez on 09-06-2024 WBC (Bld) [#/Vol] 7.8 10*3/uL Normal 4.4-11.0 [facility] Comment on above: Performed By: #### L 100.0100, L500.2500, L300.3900 #### [facility] [address] [place], [address] Basic Metabolic Profile (BMP )on 09-05-2024 BUN/CRE 13.4 RATIO Normal 10-20 [facility] Comment on above: Performed By: #### M 200.1000, L509.7001, L101.9900, L501.6710 #### [facility] [address] [place], [address] Calcium [Mass/Vol] 8.6 mg/dL Normal 7.6-11.0 [facility] Comment on above: Performed By: #### M 200.1000, L509.7001, L101.9900, L501.6710 #### [facility] [address] [place], [address] Chloride [Moles/Vol] 105 mmol/L Normal 98-[address] [facility] Comment on above: Performed By: #### M 200.1000, L509.7001, L101.9900, L501.6710 #### [facility] [address] [place], [address] CO2 [Moles/Vol] 21.9 mmol/L Normal 21.0-32.0 [facility] Comment on above: Performed By: #### M 200.1000, L509.7001, L101.9900, L501.6710 #### [facility] [address] [place], [address] Creatinine [Mass/Vol] 0.62 mg/dL Low 0.70-1.20 [facility] Comment on above: Performed By: #### M 200.1000, L509.7001, L101.9900, L501.6710 #### [facility] [address] [place], [address] ECRCL 64.10 ml/min Normal 50-250 [facility] Comment on above: Performed By: #### M 200.1000, L509.7001, L101.9900, L501.6710 #### [facility] [address] [place], [address] GAP 12 Normal 5-15 [facility] Comment on above: Performed By: #### M 200.1000, L509.7001, L101.9900, L501.6710 #### [facility] [address] [place], [address] GFR/1.73 sq M.predicted among non-blacks MDRD (S/P/Bld) [Vol rate/Area] 91 mL/min/{1.73_m2} Normal >60 [facility] [facility] Comment on above: Result Comment: mL/m in/1.73m2 CKD-EPI Creatinine Equation (2020) Performed By: #### M 200.1000, L509.7001, L101.9900, L501.6710 #### [facility] [address] [place], [address] Glucose [Mass/Vol] 119 mg/dL High 70-99 [facility] Comment on above: Performed By: #### M 200.1000, L509.7001, L101.9900, L501.6710 #### [facility] [address] [place], [address] Potassium [Moles/Vol] 3.3 mmol/L Normal 3.3-5.1 [facility] Comment on above: Performed By: #### M 200.1000, L509.7001, L101.9900, L501.6710 #### [facility] [address] [place], [address] Sodium [Moles/Vol] 139 mmol/L Normal 133-145 [facility] Comment on above: Performed By: #### M 200.1000, L509.7001, L101.9900, L501.6710 #### [facility] [address] [place], [address] Urea nitrogen [Mass/Vol] 8 mg/dL Normal 4-19 [facility] Comment on above: Performed By: #### M 200.1000, L509.7001, L101.9900, L501.6710 #### [facility] [address] [place], [address] Bilirubin Test strip Ql (U)O rdered By: Marta Black on 09-05-2024 Bilirubin Ql (U) Negative Negative [facility] CBC W/Diff, Automatedon 08-21 Absolute Lymph 0.96 X10 3/uL Normal 0.83-4.51 [facility] Comment on above: Performed By: #### M 200.1000, L509.7001, L101.9900, L501.6710 #### [facility] [address] [place], [address] Absolute Neut 7.6 X10 3/uL Normal 2.0-7.7 [facility] Comment on above: Performed By: #### M 200.1000, L509.7001, L101.9900, L501.6710 #### [facility] [address] [place], [address] Basophils/100 WBC (Bld) 0.7 % Normal 0-1 [facility] Comment on above: Performed By: #### M 200.1000, L509.7001, L101.9900, L501.6710 #### [facility] [address] [place], [address] Eosinophils/100 WBC (Bld) 4.0 % Normal 0-5 [facility] Comment on above: Performed By: #### M 200.1000, L509.7001, L101.9900, L501.6710 #### [facility] [address] [place], [address] Erythrocyte distribution width (RBC) [Ratio] 17.6 % High 11.6-14.6 [facility] Comment on above: Performed By: #### M 200.1000, L509.7001, L101.9900, L501.6710 #### [facility] [address] [place], [address] Hematocrit (Bld) [Volume fraction] 35.3 % Low 40-54 [facility] Comment on above: Performed By: #### M 200.1000, L509.7001, L101.9900, L501.6710 #### [facility] [address] [place], [address] Hemoglobin (Bld) [Mass/Vol] 11.3 g/dL Low 13.0-16.5 [facility] Comment on above: Performed By: #### M 200.1000, L509.7001, L101.9900, L501.6710 #### [facility] [address] [place], [address] IG% 0.400 Normal 0.0-0.9 [facility] Comment on above: Result Comment: IG% - Immature Granulocytes (promyelocytes, myelocytes and metamyelocytes) > 1% indicates that a LEFT SHIFT is Present. Performed By: #### M 200.1000, L509.7001, L101.9900, L501.6710 #### [facility] [address] [place], [address] Lymphocytes/100 WBC (Bld) 9.8 % Low 19-41 [facility] Comment on above: Performed By: #### M 200.1000, L509.7001, L101.9900, L501.6710 #### [facility] [address] [place], [address] MCH (RBC) [Entitic mass] 24.4 pg Low 27.0-32.0 [facility] Comment on above: Performed By: #### M 200.1000, L509.7001, L101.9900, L501.6710 #### [facility] [address] [place], [address] MCHC (RBC) [Mass/Vol] 32.0 g/dL Normal 32-36 [facility] Comment on above: Performed By: #### M 200.1000, L509.7001, L101.9900, L501.6710 #### [facility] [address] [place], [address] MCV (RBC) [Entitic vol] 76.2 fL Low 80-94 [facility] Comment on above: Performed By: #### M 200.1000, L509.7001, L101.9900, L501.6710 #### [facility] [address] [place], [address] Monocytes/100 WBC (Bld) 7.9 % Normal 0-10 [facility] Comment on above: Performed By: #### M 200.1000, L509.7001, L101.9900, L501.6710 #### [facility] [address] [place], [address] Neutrophils/100 WBC (Bld) 77.2 % High 47-70 [facility] Comment on above: Performed By: #### M 200.1000, L509.7001, L101.9900, L501.6710 #### [facility] [address] [place], [address] Nucleated RBC (Bld) [#/Vol] 0 10*3/uL Normal 0-5 [facility] Comment on above: Performed By: #### M 200.1000, L509.7001, L101.9900, L501.6710 #### [facility] [address] [place], [address] Platelet mean volume (Bld) [Entitic vol] 9.3 fL Normal 6.2-12.0 [facility] Comment on above: Performed By: #### M 200.1000, L509.7001, L101.9900, L501.6710 #### [facility] [address] [place], [address] Platelets (Bld) [#/Vol] 329 10*3/uL Normal 150-450 [facility] Comment on above: Performed By: #### M 200.1000, L509.7001, L101.9900, L501.6710 #### [facility] [address] [place], [address] RBC (Bld) [#/Vol] 4.63 10*6/uL Normal 4.6-6.2 [facility] Comment on above: Performed By: #### M 200.1000, L509.7001, L101.9900, L501.6710 #### [facility] [address] [place], [address] RDW SD 47.9 fl High 35.1-43.9 [facility] Comment on above: Performed By: #### M 200.1000, L509.7001, L101.9900, L501.6710 #### [facility] [address] [place], [address] WBC (Bld) [#/Vol] 9.8 10*3/uL Normal 4.4-11.0 [facility] Comment on above: Performed By: #### M 200.1000, L509.7001, L101.9900, L501.6710 #### [facility] [address] [place], [address] Ketones Test strip Ql (U)Ord ered By: Marta Black on 09-05-2024 Ketones Ql (U) Negative Negative [facility] Microscopic analysis of urin e for red blood cells (RBC)Ordered By: Marta Black on 09-05-2024 Microscopic analysis of urine for red blood cells (RBC) 0-5 SEEN /hpf 0-5 [facility] Mucus LM Ql (Urine sed)Order ed By: Marta Black on 09-05-2024 Mucus Ql (Urine sed) 0 SEEN /hpf [facility] Nitrite Test strip Ql (U)Ord ered By: Marta Black on 09-05-2024 Nitrite Ql (U) Negative Negative [facility] Protein Test strip Ql (U)Ord ered By: Marta Black on 09-05-2024 Protein Ql (U) 15 mg/dl High Negative [facility] Prothrombin Time w/INRon INR Coag (PPP) [Relative time] 2.2 {INR} Normal [facility] Comment on above: Performed By: #### M 200.1000, L509.7001, L101.9900, L501.6710 #### [facility] [address] [place], [address] PT Coag (PPP) [Time] 24.7 s High 11.7-14.[address] [facility] Comment on above: Performed By: #### M 200.1000, L509.7001, L101.9900, L501.6710 #### [facility] [address] [place], [address] Squamous epithelial cells de tection in urine sediment by light microscopyOrdered By: Marta Black on 09-05-2024 Epithelial cells.squamous LM Ql (Urine sed) 0 SEEN /hpf 0-5 [facility] Urinalysis, Completeon 09-05 BACTERIA RARE Normal None Seen [facility] Comment on above: Order Comment: CLEAN CATCH Performed By: #### M 200.1000, L509.7001, L101.9900, L501.6710 #### [facility] [address] [place], [address] RBC 0-5 SEEN Normal 0-5 [facility] Comment on above: Order Comment: CLEAN CATCH Performed By: #### M 200.1000, L509.7001, L101.9900, L501.6710 #### [facility] [address] [place], [address] WBC 0-5 SEEN Normal 0-5 [facility] Comment on above: Order Comment: CLEAN CATCH Performed By: #### M 200.1000, L509.7001, L101.9900, L501.6710 #### [facility] [address] [place], [address] BILIRUBIN URINE Negative Normal Negative [facility] Comment on above: Order Comment: CLEAN CATCH Performed By: #### M 200.1000, L509.7001, L101.9900, L501.6710 #### [facility] [address] [place], [address] Clarity (U) Clear Normal Clear [facility] Comment on above: Order Comment: CLEAN CATCH Performed By: #### M 200.1000, L509.7001, L101.9900, L501.6710 #### [facility] [address] [place], [address] Color (U) Straw Normal Yellow [facility] Comment on above: Order Comment: CLEAN CATCH Performed By: #### M 200.1000, L509.7001, L101.9900, L501.6710 #### [facility] [address] [place], [address] GLUCOSE, UR Normal Normal Normal [facility] Comment on above: Order Comment: CLEAN CATCH Performed By: #### M 200.1000, L509.7001, L101.9900, L501.6710 #### [facility] [address] [place], [address] KETONE UR Negative Normal Negative [facility] Comment on above: Order Comment: CLEAN CATCH Performed By: #### M 200.1000, L509.7001, L101.9900, L501.6710 #### [facility] [address] [place], [address] LEUK ESTERASE Negative Normal Negative [facility] Comment on above: Order Comment: CLEAN CATCH Performed By: #### M 200.1000, L509.7001, L101.9900, L501.6710 #### [facility] [address] [place], [address] Nitrite Ql (U) Negative Normal Negative [facility] Comment on above: Order Comment: CLEAN CATCH Performed By: #### M 200.1000, L509.7001, L101.9900, L501.6710 #### [facility] [address] [place], [address] OCCULT BLOOD-UR 25 /ul Abnormal Negative [facility] Comment on above: Order Comment: CLEAN CATCH Performed By: #### M 200.1000, L509.7001, L101.9900, L501.6710 #### [facility] [address] [place], [address] pH UR 7.0 Normal 5.0 - 8.0 [facility] Comment on above: Order Comment: CLEAN CATCH Performed By: #### M 200.1000, L509.7001, L101.9900, L501.6710 #### [facility] [address] [place], [address] PROT DIPSTX 15 mg/dl Abnormal Negative [facility] Comment on above: Order Comment: CLEAN CATCH Performed By: #### M 200.1000, L509.7001, L101.9900, L501.6710 #### [facility] [address] [place], [address] SP.GR. DIPSTX 1.005 Normal 1.002-1.03 0 [facility] Comment on above: Order Comment: CLEAN CATCH Performed By: #### M 200.1000, L509.7001, L101.9900, L501.6710 #### [facility] [address] [place], [address] UROBILI Normal Normal Normal [facility] Comment on above: Order Comment: CLEAN CATCH Performed By: #### M 200.1000, L509.7001, L101.9900, L501.6710 #### [facility] [address] [place], [address] EPI,SQUAMOUS 0 SEEN Normal 0-5 [facility] Comment on above: Order Comment: CLEAN CATCH Performed By: #### M 200.1000, L509.7001, L101.9900, L501.6710 #### [facility] [address] [place], [address] Mucus Ql (Urine sed) [address] [facility] Comment on above: Order Comment: CLEAN CATCH Performed By: #### M 200.1000, L509.7001, L101.9900, L501.6710 #### [facility] [address] [place], [address] Urine clarityOrdered By: Magnolia Black on 09-05-2024 Clarity (U) Clear Clear [facility] Urine color determinationOrd ered By: Marta Black on 09-05-2024 Color (U) Straw Yellow [facility] Urine glucose detectionOrder ed By: Marta Black on 09-05-2024 Glucose Ql (U) Normal mg/dl Normal [facility] Urine leukocyte esterase det ection by dipstickOrdered By: Marta Black on 09-05-2024 Leukocyte esterase Test strip Ql (U) Negative Negative [facility] Urine pHOrdered By: Marta Black on 09-05-2024 pH (U) 7.0 [pH] 5.0 - 8.0 [facility] Urine sediment bacteria coun t by microscopy (number/high power field)Ordered By: Marta Black on 09-05-2024 Bacteria LM.HPF (Urine sed) [#/Area] RARE /hpf None Seen [facility] Urine specific gravity measu rementOrdered By: Marta Black on 09-05-2024 Specific gravity (U) [Rel density] 1.005 1.002-1.03 0 [facility] Urine urobilinogen measureme ntOrdered By: Marta Black on 09-05-2024 Urobilinogen Ql (U) Normal mg/dl Normal [facility] White blood cell countOrdere d By: Marta Black on 09-05-2024 White blood cell count 0-5 SEEN /hpf 0-5 [facility] Basic Metabolic Profile (BMP )on 09-04-2024 BUN/CRE 17.3 RATIO Normal 10-20 [facility] Comment on above: Performed By: #### M 200.1000, L509.7001, L101.9900, L501.6710 #### [facility] [address] [place], [address] Calcium [Mass/Vol] 8.2 mg/dL Normal 7.6-11.0 [facility] Comment on above: Performed By: #### M 200.1000, L509.7001, L101.9900, L501.6710 #### [facility] [address] [place], [address] Chloride [Moles/Vol] 107 mmol/L Normal 98-[address] [facility] Comment on above: Performed By: #### M 200.1000, L509.7001, L101.9900, L501.6710 #### [facility] [address] [place], [address] CO2 [Moles/Vol] 20.9 mmol/L Low 21.0-32.0 [facility] Comment on above: Performed By: #### M 200.1000, L509.7001, L101.9900, L501.6710 #### [facility] [address] [place], [address] Creatinine [Mass/Vol] 0.72 mg/dL Normal 0.70-1.20 [facility] Comment on above: Performed By: #### M 200.1000, L509.7001, L101.9900, L501.6710 #### [facility] [address] [place], [address] ECRCL 64.10 ml/min Normal 50-250 [facility] Comment on above: Performed By: #### M 200.1000, L509.7001, L101.9900, L501.6710 #### [facility] [address] [place], [address] GAP 11 Normal 5-15 [facility] Comment on above: Performed By: #### M 200.1000, L509.7001, L101.9900, L501.6710 #### [facility] [address] [place], [address] GFR/1.73 sq M.predicted among non-blacks MDRD (S/P/Bld) [Vol rate/Area] 87 mL/min/{1.73_m2} Normal >60 [facility] Comment on above: Result Comment: mL/m in/1.73m2 CKD-EPI Creatinine Equation (2020) Performed By: #### M 200.1000, L509.7001, L101.9900, L501.6710 #### [facility] [address] [place], [address] Glucose [Mass/Vol] 120 mg/dL High 70-99 [facility] Comment on above: Performed By: #### M 200.1000, L509.7001, L101.9900, L501.6710 #### [facility] [address] [place], [address] Potassium [Moles/Vol] 3.5 mmol/L Normal 3.3-5.1 [facility] Comment on above: Performed By: #### M 200.1000, L509.7001, L101.9900, L501.6710 #### [facility] [address] [place], [address] Sodium [Moles/Vol] 139 mmol/L Normal 133-145 [facility] Comment on above: Performed By: #### M 200.1000, L509.7001, L101.9900, L501.6710 #### [facility] [address] [place], [address] Urea nitrogen [Mass/Vol] 12 mg/dL Normal 4-19 [facility] Comment on above: Performed By: #### M 200.1000, L509.7001, L101.9900, L501.6710 #### [facility] [address] [place], [address] CBC W/Diff, Automatedon 08-21 Absolute Lymph 0.89 X10 3/uL Normal 0.83-4.51 [facility] Comment on above: Performed By: #### M 200.1000, L509.7001, L101.9900, L501.6710 #### [facility] [address] [place], [address] Absolute Neut 8.9 X10 3/uL High 2.0-7.7 [facility] Comment on above: Performed By: #### M 200.1000, L509.7001, L101.9900, L501.6710 #### [facility] [address] [place], [address] Basophils/100 WBC (Bld) 0.8 % Normal 0-1 [facility] Comment on above: Performed By: #### M 200.1000, L509.7001, L101.9900, L501.6710 #### [facility] [address] [place], [address] Eosinophils/100 WBC (Bld) 5.3 % High 0-5 [facility] Comment on above: Performed By: #### M 200.1000, L509.7001, L101.9900, L501.6710 #### [facility] [address] [place], [address] Erythrocyte distribution width (RBC) [Ratio] 17.5 % High 11.6-14.6 [facility] Comment on above: Performed By: #### M 200.1000, L509.7001, L101.9900, L501.6710 #### [facility] [address] [place], [address] Hematocrit (Bld) [Volume fraction] 33.3 % Low 40-54 [facility] Comment on above: Performed By: #### M 200.1000, L509.7001, L101.9900, L501.6710 #### [facility] [address] [place], [address] Hemoglobin (Bld) [Mass/Vol] 10.7 g/dL Low 13.0-16.5 [facility] Comment on above: Performed By: #### M 200.1000, L509.7001, L101.9900, L501.6710 #### [facility] [address] [place], [address] IG% 0.400 Normal 0.0-0.9 [facility] Comment on above: Result Comment: IG% - Immature Granulocytes (promyelocytes, myelocytes and metamyelocytes) > 1% indicates that a LEFT SHIFT is Present. Performed By: #### M 200.1000, L509.7001, L101.9900, L501.6710 #### [facility] [address] [place], [address] Lymphocytes/100 WBC (Bld) 7.8 % Low 19-41 [facility] Comment on above: Performed By: #### M 200.1000, L509.7001, L101.9900, L501.6710 #### [facility] [address] [place], [address] MCH (RBC) [Entitic mass] 24.6 pg Low 27.0-32.0 [facility] Comment on above: Performed By: #### M 200.1000, L509.7001, L101.9900, L501.6710 #### [facility] [address] [place], [address] MCHC (RBC) [Mass/Vol] 32.1 g/dL Normal 32-36 [facility] Comment on above: Performed By: #### M 200.1000, L509.7001, L101.9900, L501.6710 #### [facility] [address] [place], [address] MCV (RBC) [Entitic vol] 76.6 fL Low 80-94 [facility] Comment on above: Performed By: #### M 200.1000, L509.7001, L101.9900, L501.6710 #### [facility] [address] [place], [address] Monocytes/100 WBC (Bld) 7.7 % Normal 0-10 [facility] Comment on above: Performed By: #### M 200.1000, L509.7001, L101.9900, L501.6710 #### [facility] [address] [place], [address] Neutrophils/100 WBC (Bld) 78.0 % High 47-70 [facility] Comment on above: Performed By: #### M 200.1000, L509.7001, L101.9900, L501.6710 #### [facility] [address] [place], [address] Nucleated RBC (Bld) [#/Vol] 0 10*3/uL Normal 0-5 [facility] Comment on above: Performed By: #### M 200.1000, L509.7001, L101.9900, L501.6710 #### [facility] [address] [place], [address] Platelet mean volume (Bld) [Entitic vol] 10.6 fL Normal 6.2-12.0 [facility] Comment on above: Performed By: #### M 200.1000, L509.7001, L101.9900, L501.6710 #### [facility] [address] [place], [address] Platelets (Bld) [#/Vol] 305 10*3/uL Normal 150-450 [facility] Comment on above: Performed By: #### M 200.1000, L509.7001, L101.9900, L501.6710 #### [facility] [address] [place], [address] RBC (Bld) [#/Vol] 4.35 10*6/uL Low 4.6-6.2 [facility] Comment on above: Performed By: #### M 200.1000, L509.7001, L101.9900, L501.6710 #### [facility] [address] [place], [address] RDW SD 48.3 fl High 35.1-43.9 [facility] Comment on above: Performed By: #### M 200.1000, L509.7001, L101.9900, L501.6710 #### [facility] [address] [place], [address] WBC (Bld) [#/Vol] 11.4 10*3/uL High 4.4-11.0 [facility] Comment on above: Performed By: #### M 200.1000, L509.7001, L101.9900, L501.6710 #### [facility] [address] [place], [address] Prothrombin Time w/INRon INR Coag (PPP) [Relative time] 1.9 {INR} Normal [facility] Comment on above: Performed By: #### L 300.3900 #### [facility] [address] [place], [address] PT Coag (PPP) [Time] 21.8 s High 11.7-14.[address] [facility] Comment on above: Performed By: #### L 300.3900 #### [facility] [address] [place], [address] Basic Metabolic Profile (BMP )on 09-03-2024 BUN/CRE 13.3 RATIO Normal 10-20 [facility] Comment on above: Performed By: #### M 200.1000, L509.7001, L101.9900, L501.6710 #### [facility] [address] [place], [address] Calcium [Mass/Vol] 8.5 mg/dL Normal 7.6-11.0 [facility] Comment on above: Performed By: #### M 200.1000, L509.7001, L101.9900, L501.6710 #### [facility] [address] [place], [address] Chloride [Moles/Vol] 104 mmol/L Normal 98-[address] [facility] Comment on above: Performed By: #### M 200.1000, L509.7001, L101.9900, L501.6710 #### [facility] [facility] [address] [place], [address] CO2 [Moles/Vol] 19.1 mmol/L Low 21.0-32.0 [facility] Comment on above: Performed By: #### M 200.1000, L509.7001, L101.9900, L501.6710 #### [facility] [address] [place], [address] Creatinine [Mass/Vol] 0.74 mg/dL Normal 0.70-1.20 [facility] Comment on above: Performed By: #### M 200.1000, L509.7001, L101.9900, L501.6710 #### [facility] [address] [place], [address] ECRCL 64.10 ml/min Normal 50-250 [facility] Comment on above: Performed By: #### M 200.1000, L509.7001, L101.9900, L501.6710 #### [facility] [address] [place], [address] GAP 13 Normal 5-15 [facility] Comment on above: Performed By: #### M 200.1000, L509.7001, L101.9900, L501.6710 #### [facility] [address] [place], [address] GFR/1.73 sq M.predicted among non-blacks MDRD (S/P/Bld) [Vol rate/Area] 87 mL/min/{1.73_m2} Normal >60 [facility] Comment on above: Result Comment: mL/m in/1.73m2 CKD-EPI Creatinine Equation (2020) Performed By: #### M 200.1000, L509.7001, L101.9900, L501.6710 #### [facility] [address] [place], [address] Glucose [Mass/Vol] 111 mg/dL High 70-99 [facility] Comment on above: Performed By: #### M 200.1000, L509.7001, L101.9900, L501.6710 #### [facility] [address] [place], [address] Potassium [Moles/Vol] 3.5 mmol/L Normal 3.3-5.1 [facility] Comment on above: Performed By: #### M 200.1000, L509.7001, L101.9900, L501.6710 #### [facility] [address] [place], [address] Sodium [Moles/Vol] 137 mmol/L Normal 133-145 [facility] Comment on above: Performed By: #### M 200.1000, L509.7001, L101.9900, L501.6710 #### [facility] [address] [place], [address] Urea nitrogen [Mass/Vol] 10 mg/dL Normal 4-19 [facility] Comment on above: Performed By: #### M 200.1000, L509.7001, L101.9900, L501.6710 #### [facility] [address] [place], [address] CBC W/Diff, Automatedon 08-21 Absolute Lymph 0.82 X10 3/uL Low 0.83-4.51 [facility] Comment on above: Performed By: #### M 200.1000, L509.7001, L101.9900, L501.6710 #### [facility] [address] [place], [address] Absolute Neut 10.2 X10 3/uL High 2.0-7.7 [facility] Comment on above: Performed By: #### M 200.1000, L509.7001, L101.9900, L501.6710 #### [facility] [address] [place], [address] Basophils/100 WBC (Bld) 0.7 % Normal 0-1 [facility] Comment on above: Performed By: #### M 200.1000, L509.7001, L101.9900, L501.6710 #### [facility] [address] [place], [address] Eosinophils/100 WBC (Bld) 2.8 % Normal 0-5 [facility] Comment on above: Performed By: #### M 200.1000, L509.7001, L101.9900, L501.6710 #### [facility] [address] [place], [address] Erythrocyte distribution width (RBC) [Ratio] 17.5 % High 11.6-14.6 [facility] Comment on above: Performed By: #### M 200.1000, L509.7001, L101.9900, L501.6710 #### [facility] [address] [place], [address] Hematocrit (Bld) [Volume fraction] 35.6 % Low 40-54 [facility] Comment on above: Performed By: #### M 200.1000, L509.7001, L101.9900, L501.6710 #### [facility] [address] [place], [address] Hemoglobin (Bld) [Mass/Vol] 11.3 g/dL Low 13.0-16.5 [facility] Comment on above: Performed By: #### M 200.1000, L509.7001, L101.9900, L501.6710 #### [facility] [address] [place], [address] IG% 0.400 Normal 0.0-0.9 [facility] Comment on above: Result Comment: IG% - Immature Granulocytes (promyelocytes, myelocytes and metamyelocytes) > 1% indicates that a LEFT SHIFT is Present. Performed By: #### M 200.1000, L509.7001, L101.9900, L501.6710 #### [facility] [address] [place], [address] Lymphocytes/100 WBC (Bld) 6.7 % Low 19-41 [facility] Comment on above: Performed By: #### M 200.1000, L509.7001, L101.9900, L501.6710 #### [facility] [address] [place], [address] MCH (RBC) [Entitic mass] 24.7 pg Low 27.0-32.0 [facility] Comment on above: Performed By: #### M 200.1000, L509.7001, L101.9900, L501.6710 #### [facility] [address] [place], [address] MCHC (RBC) [Mass/Vol] 31.7 g/dL Low 32-36 [facility] Comment on above: Performed By: #### M 200.1000, L509.7001, L101.9900, L501.6710 #### [facility] [address] [place], [address] MCV (RBC) [Entitic vol] 77.7 fL Low 80-94 [facility] Comment on above: Performed By: #### M 200.1000, L509.7001, L101.9900, L501.6710 #### [facility] [address] [place], [address] Monocytes/100 WBC (Bld) 6.0 % Normal 0-10 [facility] Comment on above: Performed By: #### M 200.1000, L509.7001, L101.9900, L501.6710 #### [facility] [address] [place], [address] Neutrophils/100 WBC (Bld) 83.4 % High 47-70 [facility] Comment on above: Performed By: #### M 200.1000, L509.7001, L101.9900, L501.6710 #### [facility] [address] [place], [address] Nucleated RBC (Bld) [#/Vol] 0 10*3/uL Normal 0-5 [facility] Comment on above: Performed By: #### M 200.1000, L509.7001, L101.9900, L501.6710 #### [facility] [address] [place], [address] Platelet mean volume (Bld) [Entitic vol] 9.9 fL Normal 6.2-12.0 [facility] Comment on above: Performed By: #### M 200.1000, L509.7001, L101.9900, L501.6710 #### [facility] [address] [place], [address] Platelets (Bld) [#/Vol] 252 10*3/uL Normal 150-450 [facility] Comment on above: Performed By: #### M 200.1000, L509.7001, L101.9900, L501.6710 #### [facility] [address] [place], [address] RBC (Bld) [#/Vol] 4.58 10*6/uL Low 4.6-6.2 [facility] Comment on above: Performed By: #### M 200.1000, L509.7001, L101.9900, L501.6710 #### [facility] [address] [place], [address] RDW SD 48.2 fl High 35.1-43.9 [facility] Comment on above: Performed By: #### M 200.1000, L509.7001, L101.9900, L501.6710 #### [facility] [address] [place], [address] WBC (Bld) [#/Vol] 12.3 10*3/uL High 4.4-11.0 [facility] Comment on above: Performed By: #### M 200.1000, L509.7001, L101.9900, L501.6710 #### [facility] [address] [place], [address] Prothrombin Time w/INRon 06- 14-2025 INR Coag (PPP) [Relative time] 1.8 {INR} Normal [facility] Comment on above: Performed By: #### L 300.3900 #### [facility] [address] [place], [place], [id number] PT Coag (PPP) [Time] 20.9 s High 11.7-14.[address] [facility] Comment on above: Performed By: #### L 300.3900 #### [facility] [address] [place], [place], [address] Trough vancomycin levelOrder ed By: Marta Black on 09-03-2024 Vancomycin trough [Mass/Vol] 8.2 ug/mL 5.0-15.0 [facility] Comment on above: Recommended goal [...] therapy recommended for serious lifethreatening infections include:- Obxqnxbotw-Zfuxozgkghmn-Ffhunedeu (Ventilator/Healtcare Associated)-Sepsis PLEASE CONTACT PHARMACY SERVICES (#[id number]) FOR INTERPRETATIONOF RESULTS. Vancomycin, Trough Levelon 0 09-03-2024 VANCO, TROUGH 8.2 ug/mL Normal 5.0-15.0 [facility] Comment on above: Order Comment: Comme nts: Trough to be drawn 30 mins prior to scheduled [id number] Result Comment: Ilya mmended goal trough ranges [...] (Ventilator/Healtcare Associated) -Sepsis PLEASE CONTACT PHARMACY SERVICES (#[id number]) FOR INTERPRETATION OF RESULTS. Performed By: #### M 200.1000, L509.7001, L101.9900, L501.6710 #### [facility] [address] [place], [address] Basic Metabolic Profile (BMP )on 09-02-2024 BUN/CRE 18.9 RATIO Normal 10-20 [facility] Comment on above: Performed By: #### M 200.1000, L509.7001, L101.9900, L501.6710 #### [facility] [address] [place], [address] Calcium [Mass/Vol] 8.5 mg/dL Normal 7.6-11.0 [facility] Comment on above: Performed By: #### M 200.1000, L509.7001, L101.9900, L501.6710 #### [facility] [address] [place], [address] Chloride [Moles/Vol] 105 mmol/L Normal 98-[address] [facility] Comment on above: Performed By: #### M 200.1000, L509.7001, L101.9900, L501.6710 #### [facility] [address] [place], [address] CO2 [Moles/Vol] 14.2 mmol/L Low 21.0-32.0 [facility] Comment on above: Performed By: #### M 200.1000, L509.7001, L101.9900, L501.6710 #### [facility] [address] [place], [address] Creatinine [Mass/Vol] 0.75 mg/dL Normal 0.70-1.20 [facility] Comment on above: Performed By: #### M 200.1000, L509.7001, L101.9900, L501.6710 #### [facility] [address] [place], [address] ECRCL 64.10 ml/min Normal 50-250 [facility] Comment on above: Performed By: #### M 200.1000, L509.7001, L101.9900, L501.6710 #### [facility] [address] [place], [address] GAP 15 Normal 5-15 [facility] Comment on above: Performed By: #### M 200.1000, L509.7001, L101.9900, L501.6710 #### [facility] [address] [place], [address] GFR/1.73 sq M.predicted among non-blacks MDRD (S/P/Bld) [Vol rate/Area] 86 mL/min/{1.73_m2} Normal >60 [facility] Comment on above: Result Comment: mL/m in/1.73m2 CKD-EPI Creatinine Equation (2020) Performed By: #### M 200.1000, L509.7001, L101.9900, L501.6710 #### [facility] [address] [place], [address] Glucose [Mass/Vol] 105 mg/dL High 70-99 [facility] Comment on above: Performed By: #### M 200.1000, L509.7001, L101.9900, L501.6710 #### [facility] [address] [place], [address] Potassium [Moles/Vol] 4.3 mmol/L Normal 3.3-5.1 [facility] Comment on above: Result Comment: Hemo lysis present, Results??could be affected. ?? Performed By: #### M 200.1000, L509.7001, L101.9900, L501.6710 #### [facility] [address] [place], [address] Sodium [Moles/Vol] 135 mmol/L Normal 133-145 [facility] Comment on above: Performed By: #### M 200.1000, L509.7001, L101.9900, L501.6710 #### [facility] [address] [place], [address] Urea nitrogen [Mass/Vol] 14 mg/dL Normal 4-19 [facility] Comment on above: Performed By: #### M 200.1000, L509.7001, L101.9900, L501.6710 #### [facility] [address] [place], [address] CBC W/Diff, Automatedon -03 25-2024 Absolute Lymph 0.52 X10 3/uL Low 0.83-4.51 [facility] Comment on above: Performed By: #### M 200.1000, L509.7001, L101.9900, L501.6710 #### [facility] [address] [place], [address] Absolute Neut 12.1 X10 3/uL High 2.0-7.7 [facility] Comment on above: Performed By: #### M 200.1000, L509.7001, L101.9900, L501.6710 #### [facility] [address] [place], [address] Basophils/100 WBC (Bld) 0.6 % Normal 0-1 [facility] Comment on above: Performed By: #### M 200.1000, L509.7001, L101.9900, L501.6710 #### [facility] [address] [place], [address] Eosinophils/100 WBC (Bld) 2.2 % Normal 0-5 [facility] Comment on above: Performed By: #### M 200.1000, L509.7001, L101.9900, L501.6710 #### [facility] [address] [place], [address] Erythrocyte distribution width (RBC) [Ratio] 17.8 % High 11.6-14.6 [facility] Comment on above: Performed By: #### M 200.1000, L509.7001, L101.9900, L501.6710 #### [facility] [address] [place], [address] Hematocrit (Bld) [Volume fraction] 39.9 % Low 40-54 [facility] Comment on above: Performed By: #### M 200.1000, L509.7001, L101.9900, L501.6710 #### [facility] [address] [place], [address] Hemoglobin (Bld) [Mass/Vol] 11.9 g/dL Low 13.0-16.5 [facility] Comment on above: Performed By: #### M 200.1000, L509.7001, L101.9900, L501.6710 #### [facility] [address] [place], [address] IG% 0.700 Normal 0.0-0.9 [facility] Comment on above: Result Comment: IG% - Immature Granulocytes (promyelocytes, myelocytes and metamyelocytes) > 1% indicates that a LEFT SHIFT is Present. Performed By: #### M 200.1000, L509.7001, L101.9900, L501.6710 #### [facility] [address] [place], [address] Lymphocytes/100 WBC (Bld) 3.8 % Low 19-41 [facility] Comment on above: Performed By: #### M 200.1000, L509.7001, L101.9900, L501.6710 #### [facility] [address] [place], [address] MCH (RBC) [Entitic mass] 24.5 pg Low 27.0-32.0 [facility] Comment on above: Performed By: #### M 200.1000, L509.7001, L101.9900, L501.6710 #### [facility] [address] [place], [address] MCHC (RBC) [Mass/Vol] 29.8 g/dL Low 32-36 [facility] Comment on above: Performed By: #### M 200.1000, L509.7001, L101.9900, L501.6710 #### [facility] [address] [place], [address] MCV (RBC) [Entitic vol] 82.3 fL Normal 80-94 [facility] Comment on above: Performed By: #### M 200.1000, L509.7001, L101.9900, L501.6710 #### [facility] [address] [place], [address] Monocytes/100 WBC (Bld) 4.8 % Normal 0-10 [facility] Comment on above: Performed By: #### M 200.1000, L509.7001, L101.9900, L501.6710 #### [facility] [address] [place], [address] Neutrophils/100 WBC (Bld) 87.9 % High 47-70 [facility] Comment on above: Performed By: #### M 200.1000, L509.7001, L101.9900, L501.6710 #### [facility] [address] [place], [address] Nucleated RBC (Bld) [#/Vol] 0 10*3/uL Normal 0-5 [facility] Comment on above: Performed By: #### M 200.1000, L509.7001, L101.9900, L501.6710 #### [facility] [address] [place], [address] Platelet mean volume (Bld) [Entitic vol] 10.6 fL Normal 6.2-12.0 [facility] Comment on above: Performed By: #### M 200.1000, L509.7001, L101.9900, L501.6710 #### [facility] [address] [place], [address] Platelets (Bld) [#/Vol] 227 10*3/uL Normal 150-450 [facility] Comment on above: Performed By: #### M 200.1000, L509.7001, L101.9900, L501.6710 #### [facility] [address] [place], [address] RBC (Bld) [#/Vol] 4.85 10*6/uL Normal 4.6-6.2 [facility] Comment on above: Performed By: #### M 200.1000, L509.7001, L101.9900, L501.6710 #### [facility] [address] [place], [address] RDW SD 52.3 fl High 35.1-43.9 [facility] Comment on above: Performed By: #### M 200.1000, L509.7001, L101.9900, L501.6710 #### [facility] [address] [place], [address] WBC (Bld) [#/Vol] 13.8 10*3/uL High 4.4-11.0 [facility] Comment on above: Performed By: #### M 200.1000, L509.7001, L101.9900, L501.6710 #### [facility] [address] [place], [address] Prothrombin Time w/INRon INR Coag (PPP) [Relative time] 1.9 {INR} Normal [facility] Comment on above: Performed By: #### M 200.1000, L509.7001, L101.9900, L501.6710 #### [facility] [address] [place], [address] PT Coag (PPP) [Time] 22.1 s High 11.7-14.[address] [facility] Comment on above: Performed By: #### M 200.1000, L509.7001, L101.9900, L501.6710 #### [facility] [address] [place], [address] RESPIRATORY PANEL MOLECULARo n 09-02-2024 RP PANEL ADENOVIRUS Not Detected INFLUENZA A Not Detected INFLUENZA A (SUBTYPE H1) Not Detected INFLUENZA A (SUBTYPE H3) Not Detected INFLUENZA B Not Detected HUMAN METAPHNEUMO Not Detected PARAINFLUENZA 1 Not Detected PARAINFLUENZA 2 Not Detected PARAINFLUENZA 3 Not Detected PARAINFLUENZA 4 Not Detected RHINOVIRUS Not Detected RSV A Not Detected RSV B Not Detected Normal [facility] Comment on above: Performed By: #### M 200.1000, L509.7001, L101.9900, L501.6710 #### [facility] [address] [place], [address] Absolute lymphocyte countOrd ered By: Inderjit Gillespie on 09-01-2024 Lymphocytes Auto (Unsp spec) [#/Vol] 0.62 10*3/uL Low 0.83-4.51 [facility] Absolute neutrophil countOrd ered By: Inderjit Gillespie on 09-01-2024 Neutrophils (Bld) [#/Vol] 11.3 10*3/uL High 2.0-7.7 [facility] Anion gap in Serum or Plasma Ordered By: Inderjit Gillespie on 09-01-2024 Anion gap [Moles/Vol] 10 mmol/L 5-15 [facility] Automated lymphocyte count a s percentage of total leukocytesOrdered By: Inderjit Gillespie on 09-01-2024 Lymphocytes/100 WBC Auto (Unsp spec) 4.8 % Low 19-41 [facility] BUN/creatinine ratioOrdered By: Inderjit Gillespie on 09-01-2024 Urea nitrogen/Creatinine [Mass ratio] 21.6 mg/mg High 10-20 [facility] Basic Metabolic Profile (BMP )on 09-01-2024 BUN/CRE 21.6 RATIO High - [facility] Comment on above: Performed By: #### M 200.1000, L509.7001, L101.9900, L501.6710 #### [facility] [address] [place], [address] Calcium [Mass/Vol] 8.8 mg/dL Normal 7.6-11.0 [facility] Comment on above: Performed By: #### M 200.1000, L509.7001, L101.9900, L501.6710 #### [facility] [address] [place], [address] Chloride [Moles/Vol] 105 mmol/L Normal 98-[address] [facility] Comment on above: Performed By: #### M 200.1000, L509.7001, L101.9900, L501.6710 #### [facility] [address] [place], [address] CO2 [Moles/Vol] 24.3 mmol/L Normal 21.0-32.0 [facility] Comment on above: Performed By: #### M 200.1000, L509.7001, L101.9900, L501.6710 #### [facility] [address] [place], [address] Creatinine [Mass/Vol] 0.77 mg/dL Normal 0.70-1.20 [facility] Comment on above: Performed By: #### M 200.1000, L509.7001, L101.9900, L501.6710 #### [facility] [address] [place], [address] ECRCL 68.71 ml/min Normal 50-250 [facility] Comment on above: Performed By: #### M 200.1000, L509.7001, L101.9900, L501.6710 #### [facility] [address] [place], [address] GAP 10 Normal 5-15 [facility] Comment on above: Performed By: #### M 200.1000, L509.7001, L101.9900, L501.6710 #### [facility] [address] [place], [address] GFR/1.73 sq M.predicted among non-blacks MDRD (S/P/Bld) [Vol rate/Area] 86 mL/min/{1.73_m2} Normal >60 [facility] Comment on above: Result Comment: mL/m in/1.73m2 CKD-EPI Creatinine Equation (2020) Performed By: #### M 200.1000, L509.7001, L101.9900, L501.6710 #### [facility] [address] [place], [address] Glucose [Mass/Vol] 112 mg/dL High 70-99 [facility] Comment on above: Performed By: #### M 200.1000, L509.7001, L101.9900, L501.6710 #### [facility] [address] [place], [address] Potassium [Moles/Vol] 3.7 mmol/L Normal 3.3-5.1 [facility] Comment on above: Performed By: #### M 200.1000, L509.7001, L101.9900, L501.6710 #### [facility] [address] [place], [address] Sodium [Moles/Vol] 139 mmol/L Normal 133-145 [facility] Comment on above: Performed By: #### M 200.1000, L509.7001, L101.9900, L501.6710 #### [facility] [address] [place], [address] Urea nitrogen [Mass/Vol] 17 mg/dL Normal 4-19 [facility] Comment on above: Performed By: #### M 200.1000, L509.7001, L101.9900, L501.6710 #### [facility] [address] [place], [address] Basophil percentageOrdered B y: Inderjit Gillespie on 09-01-2024 Basophils/100 WBC (Bld) 0.4 % 0-1 [facility] Bilirubin Test strip Ql (U)O rdered By: Inderjit Gillespie on 09-01-2024 Bilirubin Ql (U) Negative Negative [facility] Blood cultureOrdered By: Magnolia Black on 09-01-2024 Bacteria identified Cx Nom (Bld) No growth in 5 days. [facility] Brain/Head without Contrasto n 09-01-2024 Brain/Head without Contrast [facility] [address] [place] [address] Brain/Head without Contrast MR#: [id number] Acct: [id number] Name: ROBY FLORES Rep #: [id number] : 1935 M 89 From: Jose harris MD PCP: Dr. Stas Mora MD Status: REG ER Study: Brain/Head without Contrast Date of Exam: 08/21 05/17 Exam# [id number] Ordering Dr: Inderjit Gillespie MD PROCEDURE: BRAIN/HEAD [...] of the left maxillary sinus. Reading Location: [place] [address] CC: Dr. Inderjit Gillespie MD; Dr. Stas Mora MD [employer]: Signed Normal [facility] [facility] CBC W/Diff, Automatedon 08-21 Absolute Lymph 0.62 X10 3/uL Low 0.83-4.51 [facility] Comment on above: Performed By: #### M 200.1000, L509.7001, L101.9900, L501.6710 #### [facility] Laboratory [address] [place], [address] Absolute Neut 11.3 X10 3/uL High 2.0-7.7 [facility] Comment on above: Performed By: #### M 200.1000, L509.7001, L101.9900, L501.6710 #### [facility] Laboratory [address] [place], [address] Basophils/100 WBC (Bld) 0.4 % Normal 0-1 [facility] Comment on above: Performed By: #### M 200.1000, L509.7001, L101.9900, L501.6710 #### [facility] Laboratory [address] [place], [address] Eosinophils/100 WBC (Bld) 1.2 % Normal 0-5 [facility] Comment on above: Performed By: #### M 200.1000, L509.7001, L101.9900, L501.6710 #### [facility] Laboratory [address] [place], [address] Erythrocyte distribution width (RBC) [Ratio] 17.2 % High 11.6-14.6 [facility] Comment on above: Performed By: #### M 200.1000, L509.7001, L101.9900, L501.6710 #### [facility] Laboratory [address] [place], [address] Hematocrit (Bld) [Volume fraction] 36.8 % Low 40-54 [facility] Comment on above: Performed By: #### M 200.1000, L509.7001, L101.9900, L501.6710 #### [facility] Laboratory [address] [place], [address] Hemoglobin (Bld) [Mass/Vol] 11.6 g/dL Low 13.0-16.5 [facility] Comment on above: Performed By: #### M 200.1000, L509.7001, L101.9900, L501.6710 #### [facility] Laboratory [address] [place], [address] IG% 0.400 Normal 0.0-0.9 [facility] Comment on above: Result Comment: IG% - Immature Granulocytes (promyelocytes, myelocytes and metamyelocytes) > 1% indicates that a LEFT SHIFT is Present. Performed By: #### M 200.1000, L509.7001, L101.9900, L501.6710 #### [facility] [address] [place], [address] Lymphocytes/100 WBC (Bld) 4.8 % Low 19-41 [facility] Comment on above: Performed By: #### M 200.1000, L509.7001, L101.9900, L501.6710 #### [facility] Laboratory [address] [place], [address] MCH (RBC) [Entitic mass] 24.6 pg Low 27.0-32.0 [facility] Comment on above: Performed By: #### M 200.1000, L509.7001, L101.9900, L501.6710 #### [facility] Laboratory [address] [place], [address] MCHC (RBC) [Mass/Vol] 31.5 g/dL Low 32-36 [facility] Comment on above: Performed By: #### M 200.1000, L509.7001, L101.9900, L501.6710 #### [facility] Laboratory [address] [place], [address] MCV (RBC) [Entitic vol] 78.0 fL Low 80-94 [facility] Comment on above: Performed By: #### M 200.1000, L509.7001, L101.9900, L501.6710 #### [facility] Laboratory [address] [place], [address] Monocytes/100 WBC (Bld) 5.7 % Normal 0-10 [facility] Comment on above: Performed By: #### M 200.1000, L509.7001, L101.9900, L501.6710 #### [facility] Laboratory [address] [place], [address] Neutrophils/100 WBC (Bld) 87.5 % High 47-70 [facility] Comment on above: Performed By: #### M 200.1000, L509.7001, L101.9900, L501.6710 #### [facility] Laboratory [address] [place], [address] Nucleated RBC (Bld) [#/Vol] 0 10*3/uL Normal 0-5 [facility] Comment on above: Performed By: #### M 200.1000, L509.7001, L101.9900, L501.6710 #### [facility] [address] [place], [address] Platelet mean volume (Bld) [Entitic vol] 9.4 fL Normal 6.2-12.0 [facility] Comment on above: Performed By: #### M 200.1000, L509.7001, L101.9900, L501.6710 #### [facility] Laboratory [address] [place], [address] Platelets (Bld) [#/Vol] 258 10*3/uL Normal 150-450 [facility] Comment on above: Performed By: #### M 200.1000, L509.7001, L101.9900, L501.6710 #### [facility] Laboratory [address] [place], [address] RBC (Bld) [#/Vol] 4.72 10*6/uL Normal 4.6-6.2 [facility] Comment on above: Performed By: #### M 200.1000, L509.7001, L101.9900, L501.6710 #### [facility] [address] [place], [address] RDW SD 48.2 fl High 35.1-43.9 [facility] Comment on above: Performed By: #### M 200.1000, L509.7001, L101.9900, L501.6710 #### [facility] Laboratory [address] [place], [address] WBC (Bld) [#/Vol] 12.9 10*3/uL High 4.4-11.0 [facility] Comment on above: Performed By: #### M 200.1000, L509.7001, L101.9900, L501.6710 #### [facility] Laboratory [address] [place], [address] Gene 09-01-2024 SHEMARN Telephone (PHMEWO) ROBY FLORES ([id number]) 1935 M Date Time Provider Department 09/01/24 RUSSELL AGUAYO During your visit today, we recorded the following information about you: Russell Aguayo [facility] 09/01/2024 10:01 AM Signed PCP reached out [...] affordable alvarado using Good Rx coupons. At [facility] (his current pharmacy), he can get a 1 mo supply for ~$30. If he switches the prescription to [facility], he can get a 1 mo supply for ~$20. See coupons below. Rivastigmine patches are also available via GoodRx. It appears the cheapest option is through [facility], in which he can get 30 patches for $52. Coupon also below. Sending to PCP to review and provide patient with coupon card information. Russell Aguayo, Saúl, [facility] Primary Care Clinical Pharmacist Memantine coupon at [facility] Memantine coupon at [facility] Rivastigmine patches coupon at [facility] Luciana Cisneros MD 09/01/2024 1:27 PM Signed Rahul Chau, Staff please let patient know what the pharmacist as opined on. 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 Encounter Status:Closed by RUSSELL AGUAYO on 09/01/24 Normal [facility] COVID 19 AG RAPID (EMILY Gomez)on 09-01-2024 [...] RAPID METHOD BinaxNow COVID19 Ag Card Normal [facility] Comment on above: Performed By: #### M 200.1000, L509.7001, L101.9900, L501.6710 #### [facility] Laboratory [address] [place], [address] COVID-19 virus antigen assay Ordered By: Marta Black on 09-01-2024 SARS-CoV-2 (COVID-19) Ag IA.rapid Ql (Resp) [facility] CRPon 09-01-2024 C-REACTIVE PROT 26.80 mg/L High 0.0-3.0 [facility] Comment on above: Performed By: #### M 200.1000, L509.7001, L101.9900, L501.6710 #### [facility] Laboratory [address] [place], [address] Carbon dioxide, total [Moles /volume] in Central venous bloodOrdered By: Inderjit Gillespie on 09-01-2024 CO2 [Moles/Vol] 24.3 mmol/L 21.0-32.0 [facility] Chest 1 View (Portable)on Chest 1 View (Portable) [facility] Imaging Services [address] [place], [place] [address] Chest 1 View (Portable) MR#: [id number] Acct: [id number] Name: ROBY FLORES Rep #: [id number] : 1935 M 89 From: Jose harris MD PCP: Dr. Stas Mora MD Status: REG ER Study: Chest 1 View (Portable) Date of Exam: 09/01/24 Exam# [id number] Ordering Dr: Inderjit Gillespie MD PROCEDURE: CHEST [...] No acute abnormality is seen. Reading Location: [place] [address] CC: Dr. Inderjit Gillespie MD; Dr. Stas Mora MD Canvas Baster Jumpbasting: Signed Normal [facility] Chloride assayOrdered By: Aries Gillespie on 09-01-2024 Chloride [Moles/Vol] 105 mmol/L 98-[address] [facility] Emergency Department Summary on 09-01-2024 Emergency Department Summary [facility] Medical Records Department [address] [place] [address] Emergency Department Summary 09/01/24 MR#: [id number] Acct: [id number] Name: ROBY FLORES Rep #: [id number] : 1935 89 From: Inderjit Gillespie MD [...] shoulders elbows and wrist. 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 Neurologically he is awake alert. Answering [...] Air 09/01/24 (more content not included)... Normal [facility] Eosinophil percentageOrdered By: Inderjit Gillespie on 09-01-2024 Eosinophils/100 WBC (Bld) 1.2 % 0-5 [facility] Erythrocyte Sed Rateon 09-01 SED RATE 2 mm/hr Normal 0-20 [facility] Comment on above: Performed By: #### M 200.1000, L509.7001, L101.9900, L501.6710 #### [facility] Laboratory [address] [place] [address]. [place], [place], [id number] Erythrocyte distribution wid th ratioOrdered By: Inderjit Gillespie on 09-01-2024 Erythrocyte distribution width (RBC) [Ratio] 17.2 % High 11.6-14.6 [facility] Erythrocyte distribution wid th standard deviationOrdered By: Inderjit Gillespie on 09-01-2024 Erythrocyte distribution width (RBC) [Ratio] 48.2 fl High 35.1-43.9 [facility] Erythrocyte sedimentation ra teOrdered By: Marta Black on 09-01-2024 ESR (Bld) [Velocity] 2 mm/h 0-[address] [facility] Glomerular filtration rate ( GFR) estimation/1.73 sq m using serum, plasma, or whole bOrdered By: Inderjit Gillespie on 09-01-2024 GFR/1.73 sq M.predicted among non-blacks MDRD (S/P/Bld) [Vol rate/Area] 86 mL/min/{1.73_m2} >60 [facility] Comment on above: mL/min/1.73m2 CKD-EP I Creatinine Equation (2020) H AND P Exam - [facility]iston 09-01-2024 H&P Exam - Hospitalist [facility] Medical Records Department [address] [place] [address] H P Exam - Hospitalist 09/01/24 1018 MR#: [id number] Acct: [id number] Name: ROBY FLORES Rep #: [id number] : 1935 89 From: Kathy Wells MD PCP: Dr. Stas Mora MD Status:ADM GERMAN Location: [place] [address] HPI - General General Date of Admission: [...] in the ED were BP of 180/89, [place] of 87, RR of 18 and temp [...] debility and weakness due to mechanical fall. [facility] Medical History Chronic anticoagulation TIA (transient [...] 99 Oxy (more content not included)... Normal [facility] Hematocrit Auto (Bld) [Volum e fraction]Ordered By: Inderjit Gillespie on 09-01-2024 Hematocrit (Bld) [Volume fraction] 36.8 % Low 40-54 [facility] Hemoglobin measurementOrdere d By: Inderjit Gillespie on 09-01-2024 Hemoglobin (Bld) [Mass/Vol] 11.6 g/dL Low 13.0-16.5 [facility] Hips B/L min 2 views w/ Pelv adolfo 09-01-2024 Hips B/L min 2 views w/ Pelvis [facility] Imaging Services [address] [place], [place] [address] Hips B/L min 2 views w/ Pelvis MR#: [id number] Acct: [id number] Name: ROBY FLORES Rep #: [id number] : 1935 M 89 From: Jose harris MD PCP: Dr. Stas Mora MD Status: REG ER Study: Hips B/L min 2 views w/ Pelvis Date of Exam: 0 09/01/24 Exam# [id number] Ordering Dr: Inderjit Gillespie MD PROCEDURE: HIPS [...] No fracture or dislocation present. Reading Location: [facility] CC: Dr. Inderjit Gillespie MD; Dr. Stas Mora MD Canvas Baster Jumpbasting: Signed Normal [facility] Immature granulocytes/100 WB C Auto (Bld)Ordered By: Inderjit Gillespie on 09-01-2024 Immature granulocytes/100 WBC (Bld) 0.400 % 0.0-0.9 [facility] Comment on above: IG% - Immature Granu locytes (promyelocytes, myelocytes and metamyelocytes) > 1% indicates that a LEFT SHIFT is Present. International normalized rat io (INR) calculationOrdered By: Inderjit Gillespie on 09-01-2024 INR Coag (Bld) [Relative time] 1.8 {INR} [facility] Ketones Test strip Ql (U)Ord ered By: Inderjit Gillespie on 09-01-2024 Ketones Ql (U) Negative Negative [facility] L509.7001on 09-01-2024 Procalcitonin 0.07 ng/mL Normal <=0.10 [facility] Comment on above: Result Comment: [...] #### M 200.1000, L509.7001, L101.9900, L501.6710 #### [facility] Laboratory [address] [place], [address] MCV (mean corpuscular volume ) determinationOrdered By: Inderjit Gillespie on 09-01-2024 MCV (RBC) [Entitic vol] 78.0 fL Low 80-94 [facility] Mean corpuscular hemoglobin (MCH) determinationOrdered By: Inderjit Gillespie on 09-01-2024 MCH (RBC) [Entitic mass] 24.6 pg Low 27.0-32.0 [facility] Mean corpuscular hemoglobin concentration (MCHC) determinationOrdered By: Inderjit Gillespie on 09-01-2024 MCHC (RBC) [Mass/Vol] 31.5 g/dL Low 32-36 [facility] Mean platelet volume determi nationOrdered By: Inderjit Gillespie on 09-01-2024 Platelet mean volume (Bld) [Entitic vol] 9.4 fL 6.2-12.0 [facility] Microscopic analysis of urin e for red blood cells (RBC)Ordered By: Inderjit Gillespie on 09-01-2024 Microscopic analysis of urine for red blood cells (RBC) 0 SEEN /hpf 0-5 [facility] Monocyte percentageOrdered B y: Inderjit Gillespie on 09-01-2024 Monocytes/100 WBC (Bld) 5.7 % 0-10 [facility] Mucus LM Ql (Urine sed)Order ed By: Inderjit Gillespie on 09-01-2024 Mucus Ql (Urine sed) 0 SEEN /hpf [facility] Neutrophil percentageOrdered By: Inderjit Gillespie on 09-01-2024 Neutrophils/100 WBC (Bld) 87.5 % High 47-70 [facility] Nitrite Test strip Ql (U)Ord ered By: Inderjit Gillespie on 09-01-2024 Nitrite Ql (U) Negative Negative [facility] Nucleated red blood cell per centageOrdered By: Inderjit Gillespie on 09-01-2024 Nucleated RBC/100 WBC (Bld) [Ratio] 0 % 0-5 [facility] Platelet countOrdered By: Aries Gillespie on 09-01-2024 Platelets (Bld) [#/Vol] 258 10*3/uL 150-450 [facility] Potassium measurement (mass/ volume)Ordered By: Inderjit Gillespie on 09-01-2024 Potassium (Unsp spec) [Mass/Vol] 3.7 mmol/L 3.3-5.1 [facility] Procalcitonin [Mass/volume] in Serum or Plasma by ImmunoassayOrdered By: Marta Black on 09-01-2024 Procalcitonin IA [Mass/Vol] 0.07 ng/mL <0.11 [facility] Comment on above: Interpretation:<0.10 -0.25 [...] Protein Ql (U) 15 mg/dl High Negative [facility] Prothrombin Time w/INRon INR Coag (PPP) [Relative time] 1.8 {INR} Normal [facility] Comment on above: Performed By: #### M 200.1000, L509.7001, L101.9900, L501.6710 #### [facility] Laboratory [address] [place], [address] PT Coag (PPP) [Time] 21.4 s High 11.7-14.[address] [facility] Comment on above: Performed By: #### M 200.1000, L509.7001, L101.9900, L501.6710 #### [facility] Laboratory [address] [place], [address] Prothrombin timeOrdered By: Inderjit Gillespie on 09-01-2024 PT Coag (PPP) [Time] 21.4 s High 11.7-14.[address] [facility] RBC Auto (Bld) [#/Vol]Ordere d By: Inderjit Gillespie on 09-01-2024 RBC (Bld) [#/Vol] 4.72 10*6/uL 4.6-6.2 [facility] Respiratory pathogens detect ion panel by molecular detection methodOrdered By: Marta Black on 09-01-2024 Respiratory pathogens DNA and RNA panel LOLI+probe (Resp) [facility] Serum creatinine measurement (mass/volume)Ordered By: Inderjit Gillespie on 09-01-2024 Creatinine [Mass/Vol] 0.77 mg/dL 0.70-1.20 [facility] Serum glucose measurement (m ass/volume)Ordered By: Inderjit Gillespie on 09-01-2024 Glucose [Mass/Vol] 112 mg/dL High 70-99 [facility] Serum or plasma C reactive p rotein measurement (mass/volume)Ordered By: Marta Black on 09-01-2024 CRP [Mass/Vol] 26.80 mg/L High 0.0-3.0 [facility] Serum or plasma calcium alvaro urement (mass/volume)Ordered By: Inderjit Gillespie on 09-01-2024 Calcium [Mass/Vol] 8.8 mg/dL 7.6-11.0 [facility] Serum or plasma urea nitroge n measurement (mass/volume)Ordered By: Inderjit Gillespie on 09-01-2024 Urea nitrogen [Mass/Vol] 17 mg/dL 4-19 [facility] Sodium levelOrdered By: Inderjit Gillespie on 09-01-2024 Sodium [Moles/Vol] 139 mmol/L 133-145 [facility] Squamous epithelial cells de tection in urine sediment by light microscopyOrdered By: Inderjit Gillespie on 09-01-2024 Epithelial cells.squamous LM Ql (Urine sed) 0 SEEN /hpf 0-5 [facility] Urinalysis, Completeon 09-01 BACTERIA 0 SEEN Normal None Seen [facility] Comment on above: Order Comment: CLEAN CATCH Performed By: #### L 400.0001 #### [facility] Laboratory [address] [place], [place], [address] EPI,SQUAMOUS 0 SEEN Normal 0-5 [facility] Comment on above: Order Comment: CLEAN CATCH Performed By: #### L 400.0001 #### [facility] Laboratory [address] [place], [place], [address] Mucus Ql (Urine sed) [address] [facility] Comment on above: Order Comment: CLEAN CATCH Performed By: #### L 400.0001 #### [facility] [address] [place], [address] RBC 0 SEEN Normal 0-5 [facility] Comment on above: Order Comment: CLEAN CATCH Performed By: #### L 400.0001 #### [facility] [address] [place], [address] WBC 0 SEEN Normal 0-5 [facility] Comment on above: Order Comment: CLEAN CATCH Performed By: #### L 400.0001 #### [facility] Laboratory [address] [place], [place], [address] Urine clarityOrdered By: Mario Gillespie on 09-01-2024 Clarity (U) Clear Clear [facility] Urine color determinationOrd ered By: Inderjit Gillespie on 09-01-2024 Color (U) Yellow Yellow [facility] Urine glucose detectionOrder ed By: Inderjit Gillespie on 09-01-2024 Glucose Ql (U) Normal mg/dl Normal [facility] Urine leukocyte esterase det ection by dipstickOrdered By: Inderjit Gillespie on 09-01-2024 Leukocyte esterase Test strip Ql (U) Negative Negative [facility] Urine pHOrdered By: Inderjit pack on 09-01-2024 pH (U) 8.0 [pH] 5.0 - 8.0 [facility] Urine sediment bacteria coun t by microscopy (number/high power field)Ordered By: Inderjit Gillespie on 09-01-2024 Bacteria LM.HPF (Urine sed) [#/Area] 0 /[HPF] None Seen [facility] Urine specific gravity measu rementOrdered By: Inderjit Gillespie on 09-01-2024 Specific gravity (U) [Rel density] 1.010 1.002-1.03 0 [facility] Urine urobilinogen measureme ntOrdered By: Inderjit Gillespie on 09-01-2024 Urobilinogen Ql (U) 4 mg/dl High Normal [facility] White blood cell (WBC) count Ordered By: Inderjit Gillespie on 09-01-2024 WBC (Bld) [#/Vol] 12.9 10*3/uL High 4.4-11.0 [facility] White blood cell countOrdere d By: Inderjit Gillespie on 09-01-2024 White blood cell count 0 SEEN /hpf 0-5 [facility] CNOVon 08-31-2024 CNOV Office Visit ([place] ) FLORESROBY CORTEZ ([id number]) 1935 M Date Time Provider Department 08/31/24 [...] had a car in [facility] and wanted to retrieve it, despite not having a wedding transportation driver's license or a car there. Additionally, [...] wa (more content not included)... Normal [facility] 08-31-2024 CNPN Telephone (PHAMTE) ROBY FLORES ([id number]) 1935 M Date Time Provider Department 08/31/24 CORETTA JALLOH During your visit today, we recorded the following information about you: Coretta Jalloh RPh 08/31/2024 2:13 PM Signed [facility] Anticoagulation Clinic Anticoagulation Episode Summary Anticoagulation Care Providers Provider Role Specialty Phone number Stas Mora MD Referring Family Medicine [phone] Roby Radha Flores is a 89 year [...] Pharmacy Anticoagulation Clinic Pharmacy Anticoagulation Clinic Pager: [phone]. Coretta Jalloh RPh 09/28/2024 11:30 AM Signed Per [facility] on 09/21, pt is in [facility] for rehab. He has been for for nearly 3 weeks now. Will check back next week before we call Maria Guadalupe. Will watch for notes of discharge. Enrique Rahman Samantha, RPh 10/05/2024 2:05 PM Signed Spoke to Maria Guadalupe. She said [facility] is at an [facility] and they are managing his AC but she isn't aware of results. She isn't sure of discharge timing. She said maybe check back in a few weeks. Will check back in October for any updates. Coretta Jalloh, [facility] Adrian (Tongue Trimmer)Elana 10/27/2024 4:17 PM Signed Updating PCC LTC / Rehab list. Called and stp patient's significant other, Maria Guadalupe. She stated patient is still in SNF at this time. She was agreeable to f/u in a few weeks. Tracker updated for f/u in 2-3 weeks. Elana Campbell CPhT (Marriage Performer) Pharmacy Anticoagulation Clinic Satish (Tongue Trimmer)Parmjit 11/25/2024 3:45 PM Signed Left message requesting an update. Patient has appt with PCP 12/05. Will update tracker to that day to see if there are any updates. Adrian HuangTongue Trimmer)Elana 12/08/2024 4:41 PM Signed Updating PCC LTC / Rehab list. Attempted to call patient's caregiver, Maria Guadalupe, to get update on LTC/SNF status. Message left requesting a return call to [phone], option 2. Elana Campbell CPhT (Marriage Performer) Pharmacy Anticoagulation Clinic [facility] (Tongue Trimmer), Elana 12/22/2024 3:52 PM Signed Updating PCC LTC / Rehab list. Attempted to call patient's caregiver, Maria Guadalupe, to get update on LTC/SNF status. Message left requesting a return call to [phone], option 2. Elana Campbell CPhT (Marriage Performer) Pharmacy Anticoagulation Clinic [facility] (Tongue Trimmer), Elana 12/29/2024 5:26 PM Signed Updating PCC LTC / Rehab list. Attempted to call patient's caregiver, Maria Guadalupe, to get update on LTC/SNF status. Message left requesting a return call to [phone], option 2. Elana Campbell CPhT (Marriage Performer) Pharmacy Anticoagulation Clinic [facility] (Tongue Trimmer), (more content not included)... Normal [facility] PT panel Coag (PPP)on 2024 INR Coag (PPP) [Relative time] 1.9 {INR} High 0.9-1.3 [facility] Comment on above: Order Comment: Stone parmar Type: BLOOD SPECIMENOrdering Facility: [facility] Address: [address] [place] [address] Result Comment: Mary min K Antagonist (VKA) Therapeutic Range: INR 2 to 3 (Target INR of 2.5) Note: For patients treated with VKA drugs, such as warfarin, the [employer] 2012 Guideline recommends [...] Chest 2012, 141:7S-47S Avel RA, et al. [facility] 2017, 70: 252-289 Performed By: #### 3 4528-0 ####[facility] [id number] [place] [address] [place] PT Coag (PPP) [Time] 19.2 s High <13.1 [facility] Comment on above: Order Comment: Stone parmar Type: BLOOD SPECIMENOrdering Facility: [facility] Address: [address] [place] [address] Performed By: #### 3 4528-0 ####[facility] [id number] [address] [place] Gene 08-03-2024 SHEMARN Telephone ([facility]) ROBY FLORES ([id number]) 1935 M Date Time Provider Department 08/03/24 CORETTA JALLOH During your visit today, we recorded the following information about you: Coretta Jalloh [facility] 08/03/2024 10:52 AM Signed [facility] Anticoagulation Clinic Anticoagulation Episode Summary Anticoagulation Care Providers Provider Role Specialty Phone number Stas Mora MD Referring Family Medicine [phone] Roby Flores is a 88 year old [...] doses of warfarin. Coretta Jalloh [facility] Clinical Pharmacist, Pharmacy Anticoagulation Clinic Pharmacy Anticoagulation Clinic Pager: [phone]. Adrian ([employer] [place])Elana 08/03/2024 11:01 AM Signed PATIENT CALL Patient [...] verbalized understanding. Will route to [facility] as FYI. 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] 04/24/2011 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 [Z79.01]09/22/2016 Paroxysmal atrial fibrillation (HCC) [I48.0] 09/22/2016 Hyperlipidemia [E78.5] 08/26/2022 Encounter Status:Closed by CORETTA JALLOH on 08/03/24 Normal [facility] PT panel Coag (PPP)on 2024 INR Coag (PPP) [Relative time] 2.5 {INR} High 0.9-1.3 [facility] Comment on above: Order Comment: Speci men Type: BLOOD SPECIMEN Ordering Facility: [facility] Address: [address] [place] [address] Result Comment: Mary min K Antagonist (VKA) Therapeutic Range: INR 2 to 3 (Target INR of 2.5) Note: For patients treated with VKA drugs, such as warfarin, the [place] [employer] 2012 Guideline recommends [...] Chest 2012, 141:7S-47S Avel RA, et al. [facility] 2017, 70: 252-289 Performed By: #### 3 4528-0 #### [facility] CLIA [id number] [address] [place] [address] [place] PT Coag (PPP) [Time] 24.3 s High <13.1 [facility] Comment on above: Order Comment: Speci men Type: BLOOD SPECIMEN Ordering Facility: [facility] Address: [address] [place] [address] Performed By: #### 3 4528-0 #### [facility] CLIA [id number] [address] [place] [address] CNOVon 07-28-2024 CNOV Office Visit (FAMPWS ) ROBY FLORES ([id number]) 1935 M Date Time Provider Department 07/28/24 11:20 AM STAS MORAPWS During your visit today, we recorded the following information about you: Pulse Respiration Blood pressure Weight 56/minute 16/minute 136/78 74.1 kg Stas Mora MD 07/28/2024 11:21 AM Signed Chief Complaint Patient presents with: Lump: Elbow HPI Roby lFores is a 88 year old male who [...] Coronary atherosclerosis of unspecified type of vessel, [place] or graft Coronary artery disease Other and [...] Histories independently gathered by the clinical it support analyst and the remaining scribed note accurately describes [...] - Fully Assessed Reason for Visit: Lump [10113] Cmt: Elbow Primary Visit Diagnosis:Bursitis of right elbow, unspecified bursa [M70.31] Prescriptions as of 07/28/2024 - memantine (NAMENDA) 10 mg tablet Take 1 tablet by mouth two times a day. - atorvastatin (LIPITOR) 40 mg tablet Take 1 tablet by mouth daily at bedtime. - warfarin (COUMADIN) 2.5 mg tablet Take as directed (more content not included)... Normal [facility]-20[facility] ROBY FLORES ([id number]) 1935 M Date Time Provider Department 07/12/24 [...] else that patient can take? Please advise. 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 [Z79.01]09/22/2016 Paroxysmal atrial fibrillation (HCC) [I48.0] 09/22/2016 Hyperlipidemia [E78.5] 08/26/2022 Encounter Status:Closed by WENDY FAULKNER on 07/18/24 [facility] Gene 07-06-2024 CNPN Telephone (PHAMTE) ROBY FLORES ([id number]) 1935 M Date Time Provider Department 07/06/24 CORETTA JALLOH During your visit today, we recorded the following information about you: Coretta Jalloh [facility] 07/06/2024 10:16 AM Signed [facility] Anticoagulation Clinic Anticoagulation Episode Summary Anticoagulation Care Providers Provider Role Specialty Phone number Stas Mora MD Referring Family Medicine [phone] Roby Flores is a 88 year old [...] doses of warfarin. Coretta Jalloh [facility] Clinical Pharmacist, Pharmacy Anticoagulation Clinic Pharmacy Anticoagulation Clinic Pager: [phone]. Allergies As of Date: 07/06/2024 (No Known [...] Status:Closed by CORETTA JALLOH on 07/06/24 Normal [facility] PT panel Coag (PPP)on 2024 INR Coag (PPP) [Relative time] 2.1 {INR} High 0.9-1.3 [facility] Comment on above: Order Comment: Speci men Type: BLOOD SPECIMENOrdering Facility: [facility] Address: [address] [place] [address] Result Comment: Mary min K Antagonist (VKA) Therapeutic Range: INR 2 to 3 (Target INR of 2.5) Note: For patients treated with VKA drugs, such as warfarin, the [place] [employer] 2012 Guideline recommends [...] Chest 2012, 141:7S-47S Avel CARDONA et al. [facility] 2017, 70: 252-289 Performed By: #### 3 4528-0 ####[facility] DENISEWNCLIA [id number] [place] [address] [place] PT Coag (PPP) [Time] 21.0 s High <13.1 [facility] Comment on above: Order Comment: Speci men Type: BLOOD SPECIMENOrdering Facility: [facility] Address: [facility] [place] [address] Performed By: #### 3 4528-0 ####[facility] [id number] [place] [id number] [place] [address] [place] CNPNon 06-29-2024 CNPN Telephone (PHAMTE) ROBY FLORES ([id number]) 1935 M Date Time Provider Department 06/29/24 CORETTA JALLOH During your visit today, we recorded the following information about you: Coretta Jalloh RPh 06/29/2024 9:54 AM Signed [facility] Anticoagulation Clinic Anticoagulation Episode Summary Anticoagulation Care Providers Provider Role Specialty Phone number Stas Mora MD Referring Family Medicine [phone] Roby Martinezenter is a 88 year old [...] ALLERGIES No Known Allergies Indication for Warfarin: 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 Paroxysmal atrial fibrillation (hcc) Anticoagulation Episode Summary Current INR goal: 2.0-3.0 Assessment: INR result of 2.5 is therapeutic Plan: Current Warfarin Dosing As of 06/29/2024 Full warfarin instructions: 1.5 mg every Thu, Sat; 2.5 mg all other days [facility] message Advised patient to continue current weekly [...] doses of warfarin. Coretta Jalloh [facility] Clinical Pharmacist, Pharmacy Anticoagulation Clinic Pharmacy Anticoagulation Clinic Pager: [phone]. Allergies As of Date: 06/29/2024 (No Known Allergies) Date Reviewed: 06/01/2024 Reviewed by: Vicki Patricia LPN - Fully Assessed Reason for Visit: Anticoagulation Telephone Fu [148] Cmt: Lab INR result Primary Visit Diagnosis: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 [Z79.01] Other Visit [...] Status:Closed by CORETTA JALLOH on 06/29/24 Normal [facility] PT panel Coag (PPP)on 2024 INR Coag (PPP) [Relative time] 2.5 {INR} High 0.9-1.3 [facility] Comment on above: Order Comment: Speci men Type: BLOOD SPECIMEN Ordering Facility: [facility] Address: [address] [place] [address] Result Comment: Mary min K Antagonist (VKA) Therapeutic Range: INR 2 to 3 (Target INR of 2.5) Note: For patients treated with VKA drugs, such as warfarin, the [place] [employer] 2012 Guideline recommends [...] Chest 2012, 141:7S-47S Avel RA, et al. [facility] 2017, 70: 252-289 Performed By: #### 3 4528-0 #### [facility] [id number] [address] [place] [address] [place] PT Coag (PPP) [Time] 24.4 s High <13.1 [facility] Comment on above: Order Comment: Speci men Type: BLOOD SPECIMEN Ordering Facility: [facility] Address: [address] [place] [address] Performed By: #### 3 4528-0 #### [facility] [id number] [address] [place] [address] [place] CNOVon 06-01-2024 CNOV Office Visit (PATIWR ) ROBY FLORES ([id number]) 1935 M Date Time Provider Department 06/01/24 3:00 PM LUCIANA CISNEROS During your visit today, we recorded the following information about you: Pulse Blood pressure Weight Height 46/minute 132/60 73.8 kg 1.819 m Luciana Cisneros MD 07/14/2024 4:10 PM Addendum [facility] Initial Consult [...] not know 911 Social History: Primary language: Polish Marital Status: Single Living situation: Home w/ SO Socially engaged? (participates in activities such as clubs, moravian, community center, sports, games, visiting friends/relatives, etc?): They go out to eat sometimes, not as often, most of the time they order stuff and pick it up at home. Caregiver [place] and Stress Are your feeling overwhelmed? 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 Normal [facility] CNOVon 05-26-2024 CNOV Office Visit (FAMPWS ) ROBY FLORES ([id number]) 1935 M Date Time Provider Department 05/26/24 [...] Coronary atherosclerosis of unspecified type of vessel, [place] or graft Coronary artery disease Other and [...] due on (more content not included)... Normal [facility] Gene 05-26-2024 SHEMARN Telephone (PATIWR) ROBY FLORES ([id number]) 1935 M Date Time Provider Department 05/26/24 [...] Status:Closed by EDILIA MOSLEY on 05/26/24 Normal [facility] CBC W Auto Differential pane l (Bld)on 05-25-2024 Basophils (Bld) [#/Vol] 0.05 10*3/uL Normal <0.11 [facility] Comment on above: Order Comment: Speci men Type: BLOOD SPECIMENOrdering Facility: [facility] Address: [address] [place] [address] Performed By: #### 5 7021-8 ####[facility] [id number] [place] [address] [place] Basophils/100 WBC (Bld) 0.6 % Normal [facility] Comment on above: Order Comment: Speci men Type: BLOOD SPECIMENOrdering Facility: [facility] Address: [address] [place] [address] Performed By: #### 5 7021-8 ####[facility] [id number] [place] [address] [place] Differential cell count method Nom (Bld) Auto Normal [facility] Comment on above: Order Comment: Speci men Type: BLOOD SPECIMENOrdering Facility: [facility] Address: [address] [place] [address] Performed By: #### 5 7021-8 ####[facility] [id number] [place] [address] [place] Eosinophils (Bld) [#/Vol] 0.08 10*3/uL Normal <0.46 [facility] Comment on above: Order Comment: Speci men Type: BLOOD SPECIMENOrdering Facility: [facility] Address: [address] [place] [address] Performed By: #### 5 7021-8 ####[facility] [id number] [place] [address] [place] Eosinophils/100 WBC (Bld) 1.0 % Normal [facility] Comment on above: Order Comment: Speci men Type: BLOOD SPECIMENOrdering Facility: [facility] Address: [address] [place] [address] Performed By: #### 5 7021-8 ####[facility] [id number] [place] [address] [place] Erythrocyte distribution width (RBC) [Ratio] 16.7 % High 11.5-15.0 [facility] Comment on above: Order Comment: Speci men Type: BLOOD SPECIMENOrdering Facility: [facility] Address: [address] [place] [address] Performed By: #### 5 7021-8 ####[facility] [id number] [place] [address] [place] Hematocrit (Bld) [Volume fraction] 38.7 % Low 39.0-51.0 [facility] Comment on above: Order Comment: Speci men Type: BLOOD SPECIMENOrdering Facility: [facility] Address: [address] [place] [address] Performed By: #### 5 7021-8 ####[facility]ERGENCYJERMAIN [id number] [place] [address] [place] Hemoglobin (Bld) [Mass/Vol] 11.8 g/dL Low 13.0-17.0 [facility] Comment on above: Order Comment: Speci men Type: BLOOD SPECIMENOrdering Facility: [facility] Address: [address] [place] [address] Performed By: #### 5 7021-8 ####[facility] [id number] [place] [address] [place] Immature granulocytes (Bld) [#/Vol] 10*3/uL Normal <0.10 [facility] Comment on above: Order Comment: Speci men Type: BLOOD SPECIMENOrdering Facility: [facility] Address: [address] [place] [address] Performed By: #### 5 7021-8 ####[facility] HOSPITALRachel [id number] [place] [address] [place] Immature granulocytes/100 WBC (Bld) 0.2 % Normal [facility] Comment on above: Order Comment: Speci men Type: BLOOD SPECIMENOrdering Facility: [facility] Address: [address] [place] [address] Performed By: #### 5 7021-8 ####[facility] [id number] [place] [address] [place] Lymphocytes (Bld) [#/Vol] 1.50 10*3/uL Normal 1.00-4.00 [facility] Comment on above: Order Comment: Speci men Type: BLOOD SPECIMENOrdering Facility: [facility] Address: [address] [place] [address] Performed By: #### 5 7021-8 ####[facility] DENISEELEANORA [id number] [place] [address] [place] Lymphocytes/100 WBC (Bld) 18.7 % Normal [facility] Comment on above: Order Comment: Speci men Type: BLOOD SPECIMENOrdering Facility: [facility] Address: [address] [place] [address] Performed By: #### 5 7021-8 ####[facility] EMERGENCYAMINATALIZZ [id number] [place] [address] [place] MCH (RBC) [Entitic mass] 23.6 pg Low 26.0-34.0 [facility] Comment on above: Order Comment: Speci men Type: BLOOD SPECIMENOrdering Facility: [facility] Address: [address] [place] [address] Performed By: #### 5 7021-8 ####[facility]OS[facility]ITALRachel [id number] [place] [address] [place] MCHC (RBC) [Mass/Vol] 30.5 g/dL Normal 30.5-36.0 [facility] Comment on above: Order Comment: Speci men Type: BLOOD SPECIMENOrdering Facility: [facility] Address: [address] [place] [address] Performed By: #### 5 7021-8 ####[facility]ERGENCYJERMAIN [id number] [place] [address] [place] MCV (RBC) [Entitic vol] 77.6 fL Low 80.0-100.0 [facility] Comment on above: Order Comment: Speci men Type: BLOOD SPECIMENOrdering Facility: [facility] Address: [address] [place] [address] Performed By: #### 5 7021-8 ####[facility] EMERGENCYNCLIA [id number] [place] [address] [place] Monocytes (Bld) [#/Vol] 0.64 10*3/uL Normal <0.87 [facility] Comment on above: Order Comment: Speci men Type: BLOOD SPECIMENOrdering Facility: [facility] Address: [address] [place] [address] Performed By: #### 5 7021-8 ####[facility]ERGENCYNCL[facility] [id number] [place] [address] [place] Monocytes/100 WBC (Bld) 8.0 % Normal [facility] Comment on above: Order Comment: Speci men Type: BLOOD SPECIMENOrdering Facility: [facility] Address: [address] [place] [address] Performed By: #### 5 7021-8 ####[facility] EMERGENCYNCA [id number] [place] [address] [place] Neutrophils (Bld) [#/Vol] 5.75 10*3/uL Normal 1.45-7.50 [facility] Comment on above: Order Comment: Speci men Type: BLOOD SPECIMENOrdering Facility: [facility] Address: [address] [place] [address] Performed By: #### 5 7021-8 ####[facility]ITALA [id number] [place] [address] [place] Neutrophils/100 WBC (Bld) 71.5 % Normal [facility] Comment on above: Order Comment: Speci men Type: BLOOD SPECIMENOrdering Facility: [facility] Address: [address] [place] [address] Performed By: #### 5 7021-8 ####[facility] EMERGENCYNCA [id number] [place] [address] [place] Nucleated RBC (Bld) [#/Vol] 10*3/uL Normal <0.01 [facility] Comment on above: Order Comment: Speci men Type: BLOOD SPECIMENOrdering Facility: [facility] Address: [address] [place] [address] Performed By: #### 5 7021-8 ####[facility] DENISERUBA [id number] [place] [address] [place] Nucleated RBC/100 WBC (Bld) [Ratio] 0.0 /100 WBC Normal [facility] Comment on above: Order Comment: Speci men Type: BLOOD SPECIMENOrdering Facility: [facility] Address: [address] [place] [address] Performed By: #### 5 7021-8 ####[facility] EMERGENCYNCLIZZ [id number] [place] [address] [place] Platelet mean volume (Bld) [Entitic vol] 10.6 fL Normal 9.0-12.7 [facility] Comment on above: Order Comment: Speci men Type: BLOOD SPECIMENOrdering Facility: [facility] Address: [address] [place] [address] Performed By: #### 5 7021-8 ####[facility] EMERGENCYNCA [id number] [place] [address] [place] Platelets (Bld) [#/Vol] 257 10*3/uL Normal 150-400 [facility] Comment on above: Order Comment: Speci men Type: BLOOD SPECIMENOrdering Facility: [facility] Address: [address] [place] [address] Performed By: #### 5 7021-8 ####[facility]ENCYNCL[facility] [id number] [place] [address] [place] RBC (Bld) [#/Vol] 4.99 10*6/uL Normal 4.20-6.00 [facility] Comment on above: Order Comment: Speci men Type: BLOOD SPECIMENOrdering Facility: [facility] Address: [address] [place] [address] Performed By: #### 5 7021-8 ####[facility] BERNICE WALKERTOWNCLIA [id number] [place] [address] [place] WBC (Bld) [#/Vol] 8.04 10*3/uL Normal 3.70-11.00 [facility] Comment on above: Order Comment: Speci men Type: BLOOD SPECIMENOrdering Facility: [facility] Address: [address] [place] [address] Performed By: #### 5 7021-8 ####[facility] BERNICE WALKERTOWNCLIA [id number] [address] OF [place] CNPMarizol 05-25-2024 CNPN Telephone (SHAY) ROBY FLORES ([id number]) 1935 M Date Time Provider Department 05/25/24 PAIGE HICKMAN During your visit today, we recorded the following information about you: Paige Hickman RPh 05/25/2024 1:51 PM Signed [facility] Anticoagulation Clinic Anticoagulation Episode Summary Anticoagulation Care Providers Provider Role Specialty Phone number Stas Mora MD Referring Family Medicine [phone] Roby Garcia Sandra is a 88 year [...] Sat; 2.5 mg all other days [facility] message Advised patient to continue current weekly dose as noted above Next INR check due on 06/29/2024 Paige Hickman [facility] Clinical Pharmacist, Pharmacy Anticoagulation Clinic Pharmacy Anticoagulation Clinic Pager: [phone]. Allergies As of Date: 05/25/2024 (No Known [...] Status:Closed by PAIGE HICKMAN on 05/25/24 Normal [facility] Comprehensive metabolic 2000 panelon 05-25-2024 Albumin [Mass/Vol] 4.2 g/dL Normal 3.9-4.9 [facility] Comment on above: Order Comment: Speci men Type: BLOOD SPECIMEN Ordering Facility: [facility] Address: [address] [place] [address] Performed By: #### 3 4528-0 #### [facility] [id number] [address] [place] [address] [place] ALP [Catalytic activity/Vol] 138 U/L High 38-113 [facility] Comment on above: Order Comment: Speci men Type: BLOOD SPECIMEN Ordering Facility: [facility] Address: [address] [place] [address] Performed By: #### 3 4528-0 #### [facility] CLIA [id number] [address] [place] [address] [place] ALT [Catalytic activity/Vol] 17 U/L Normal 10-54 [facility] Comment on above: Order Comment: Speci men Type: BLOOD SPECIMEN Ordering Facility: [facility] Address: [address] [place] [address] Performed By: #### 3 4528-0 #### [facility] CLIA [id number] [address] [place] [address] [place] Anion gap [Moles/Vol] 11 mmol/L Normal 8-15 [facility] Comment on above: Order Comment: Speci men Type: BLOOD SPECIMEN Ordering Facility: [facility] Address: [address] [place] [address] Performed By: #### 3 4528-0 #### [facility] CLIA [id number] [address] [place] [address] [place] AST [Catalytic activity/Vol] 22 U/L Normal 14-40 [facility] Comment on above: Order Comment: Speci men Type: BLOOD SPECIMEN Ordering Facility: [facility] Address: [address] [place], [place] [address] Performed By: #### 3 4528-0 #### [facility] [id number] [address] [place] [address] [place] Bilirubin [Mass/Vol] 0.8 mg/dL Normal 0.2-1.3 [facility] Comment on above: Order Comment: Speci men Type: BLOOD SPECIMEN Ordering Facility: [facility] Address: [address] [place] [address] Performed By: #### 3 4528-0 #### [facility] CLIA [id number] [address] [place] [address] [place] Calcium [Mass/Vol] 8.8 mg/dL Normal 8.5-10.2 [facility] Comment on above: Order Comment: Speci men Type: BLOOD SPECIMEN Ordering Facility: [facility] Address: [address] [place] [address] Performed By: #### 3 4528-0 #### [facility] CLIA [id number] [address] [place] [address] [place] Chloride [Moles/Vol] 102 mmol/L Normal 98-107 [facility] Comment on above: Order Comment: Speci men Type: BLOOD SPECIMEN Ordering Facility: [facility] Address: [address] [place] [address] Performed By: #### 3 4528-0 #### [facility] CLIA [id number] [address] [place] [address] [place] CO2 [Moles/Vol] 24 mmol/L Normal 22-30 [facility] Comment on above: Order Comment: Speci men Type: BLOOD SPECIMEN Ordering Facility: [facility] Address: [address] [place] [address] Performed By: #### 3 4528-0 #### [facility] CLIA [id number] [address] [place] [address] [place] Creatinine [Mass/Vol] 0.73 mg/dL Normal 0.73-1.22 [facility] Comment on above: Order Comment: Speci men Type: BLOOD SPECIMEN Ordering Facility: [facility] Address: [address] [place] [address] Performed By: #### 3 4528-0 #### [facility] [id number] [address] [place] [address] [place] Creatinine and Glomerular filtration rate.predicted panel (S/P/Bld) 88 mL/min/1.73m??? Normal >=60 [facility] Comment on above: Order Comment: Speci men Type: BLOOD SPECIMEN Ordering Facility: [facility] Address: [address] [place] [address] Result Comment: Ruby mated Glomerular Filtration Rate [...] GFR. Performed By: #### 3 4528-0 #### [facility] [id number] [address] [place] [address] [place] Glucose [Mass/Vol] 98 mg/dL Normal 74-99 [facility] Comment on above: Order Comment: Stone men Type: BLOOD SPECIMEN Ordering Facility: [facility] Address: [address] [place] [address] Result Comment: The [place] Diabetes Association (ADA) provides guidance for cutoff [...] Standards of Medical Care in Diabetes 2016, [place] Diabetes Association. Diabetes Care. 2016.39(Suppl 1). Performed By: #### 3 4528-0 #### [facility] [id number] [address] [place] [address] [place] Potassium [Moles/Vol] 4.1 mmol/L Normal 3.7-5.1 [facility] Comment on above: Order Comment: Stone parmar Type: BLOOD SPECIMEN Ordering Facility: [facility] Address: [address] [place] [address] Performed By: #### 3 4528-0 #### [facility] [id number] [address] [place] [address] [place] Protein [Mass/Vol] 6.8 g/dL Normal 6.3-8.0 [facility] Comment on above: Order Comment: Stone parmar Type: BLOOD SPECIMEN Ordering Facility: [facility] Address: [address] [place] [address] Performed By: #### 3 4528-0 #### [facility] CLIA [id number] [address] [place] [address] [place] Sodium [Moles/Vol] 137 mmol/L Normal 136-144 [facility] Comment on above: Order Comment: Speci men Type: BLOOD SPECIMEN Ordering Facility: [facility] Address: [address] [place] [address] Performed By: #### 3 4528-0 #### [facility] CLIA [id number] [address] [place] [address] [place] Urea nitrogen [Mass/Vol] 14 mg/dL Normal 9-24 [facility] Comment on above: Order Comment: Speci men Type: BLOOD SPECIMEN Ordering Facility: [facility] Address: [address] [place] [address] Performed By: #### 3 4528-0 #### [facility] CLIA [id number] [address] [place] [address] [place] Lipid 1996 panelon 5 Cholesterol [Mass/Vol] 107 mg/dL Normal <200 [facility] Comment on above: Order Comment: Speci men Type: BLOOD SPECIMEN Ordering Facility: [facility] Address: [address] [place] [address] Result Comment: <200 mg/dL, Desirable 200-239 mg/dL, Borderline high >239 mg/dL, High Performed By: #### 3 4528-0 #### [facility] CLIA [id number] [address] [place] [address] [place] Cholesterol in HDL [Mass/Vol] 43 mg/dL Normal >39 [facility] Comment on above: Order Comment: Speci men Type: BLOOD SPECIMEN Ordering Facility: [facility] Address: [address] [place] [address] Result Comment: 40-5 9 mg/dL, Acceptable >59 mg/dL, High: Negative risk factor for coronary heart disease <40 mg/dL, Low: Positive risk factor for coronary heart disease Performed By: #### 3 4528-0 #### [facility] CLIA [id number] [address] [place] [address] [place] Cholesterol in LDL [Mass/Vol] 51 mg/dL Normal <100 [facility] Comment on above: Order Comment: Stone parmar Type: BLOOD SPECIMEN Ordering Facility: [facility] Address: [address] [place] [address] Result Comment: <100 mg/dL, Optimal 100-129 mg/dL, Near optimal/above optimal 130-159 mg/dL, Borderline high 160-189 mg/dL, High >189 mg/dL, Very high Secondary prevention optimal LDL Cholesterol levels are recommended to be < 70 mg/dL Performed By: #### 3 4528-0 #### [facility] [id number] [address] [place] [address] [place] Cholesterol in LDL/Cholesterol in HDL [Mass ratio] 1.19 {ratio} Normal <2.54 [facility] Comment on above: Order Comment: Stone parmar Type: BLOOD SPECIMEN Ordering Facility: [facility] Address: [address] [place] [address] Result Comment: Refe rence: 1. National Cholesterol Education Program ATP III Guideline At-A-Glance Quick Desk Reference: National Heart, Lung, and Blood [place]. National Institutes of Health. 2001: NIH Publication No. 01-3305. 2. An International Atherosclerosis Society position paper: global recommendations for the management of dyslipidemia: executive summary, Atherosclerosis. 2014: 232(2):410-413. Performed By: #### 3 4528-0 #### [facility] [id number] [address] [place] [address] [place] Cholesterol in VLDL [Mass/Vol] 13 mg/dL Normal <30 [facility] Comment on above: Order Comment: Stone parmar Type: BLOOD SPECIMEN Ordering Facility: [facility] Address: [address] [place], [place] [address] Performed By: #### 3 4528-0 #### [facility] CLIA [id number] [address] [place] [address] [place] Cholesterol non HDL [Mass/Vol] 64 mg/dL Normal <130 [facility] Comment on above: Order Comment: Speci men Type: BLOOD SPECIMEN Ordering Facility: [facility] Address: [facility] [place] [address] Result Comment: <130 mg/dL, Optimal 130-159 mg/dL, Near optimal/above optimal 160-189 mg/dL, Borderline high 190-219 mg/dL, High >219 mg/dL, Very high Secondary prevention optimal non HDL Cholesterol levels are recommended to be <100 mg/dL Performed By: #### 3 4528-0 #### [facility] CLIA [id number] [address] [place] [address] [place] Cholesterol.total/Cho lesterol in HDL [Mass ratio] 2.49 {ratio} Normal <5.10 [facility] Comment on above: Order Comment: Speci men Type: BLOOD SPECIMEN Ordering Facility: [facility] Address: [address] [place] [address] Performed By: #### 3 4528-0 #### [facility] CLIA [id number] [address] [place] [address] [place] FASTING TIME 12 hrs Normal [facility] Comment on above: Order Comment: Speci men Type: BLOOD SPECIMEN Ordering Facility: [facility] Address: [address] [place] [address] Performed By: #### 3 4528-0 #### [facility] [id number] [address] [place] [address] [place] Triglyceride [Mass/Vol] 66 mg/dL Normal <150 [facility] Comment on above: Order Comment: Speci men Type: BLOOD SPECIMEN Ordering Facility: [facility] Address: [address] [place] [address] Result Comment: <150 mg/dL, Normal 150-199 mg/dL, Borderline high 200-499 mg/dL, High >499 mg/dL, Very high Performed By: #### 3 4528-0 #### [facility] CLIA [id number] [address] [place] [address] [place] PT panel Coag (PPP)on 2024 INR Coag (PPP) [Relative time] 2.9 {INR} High 0.9-1.3 [facility] Comment on above: Order Comment: Specrosalio parmar Type: BLOOD SPECIMEN Ordering Facility: [facility] Address: [address] [place] [address] Result Comment: Mary min K Antagonist (VKA) Therapeutic Range: INR 2 to 3 (Target INR of 2.5) Note: For patients treated with VKA drugs, such as warfarin, the [place] [employer]icians 2012 Guideline recommends [...] Chest 2012, 141:7S-47S Avel RA et al. [facility] 2017, 70: 252-289 Performed By: #### 3 4528-0 #### [facility] [id number] [address] [place] [address] [place] PT Coag (PPP) [Time] 28.7 s High <13.1 [facility] Comment on above: Order Comment: Stone men Type: BLOOD SPECIMEN Ordering Facility: [facility] Address: [address] [place] [address] Performed By: #### 3 4528-0 #### [facility] CLIA [id number] [address] [place] [address] [place] MR Brain WO contraston 05-23 * * *Final Report* * * DATE OF EXAM: May 23 2024 3:14PM [facility] 3015 - MRI BRAIN W QUANT [...] dementia protocol and 3-D post-processing using the Hexoskin ([employer]) software at an independent workstation with concurrent [...] to 1.7; Violeta 2008; also Hieu 2010). [facility] RADIOLOGY Provider, [facility] Kari Hernández - 05/23/2024 * * *Final Report* * * DATE OF EXAM: May 23 2024 3:14PM [facility] 3015 - MRI BRAIN W QUANT [...] dementia protocol and 3-D post-processing using the NeuroObjectFX software at an independent workstation with concurrent [...] = Focal Lesions 2 = Beginning of [place] 3 = Diffuse Involvement of Entire Region [...] (%). Age-matched r (more content not included)... [facility] MR Unspecified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 (Urine sed) 0 SEEN /hpf 0-5 [facility] Thin prep Papanicolaou smear with manual screeningOrdered By: Brian Cunningham on 02-10-2023 Thin prep Papanicolaou smear with manual screening 2 5-15 [facility] Urine blood detectionOrdered By: Brian Cunningham on 02-10-2023 RBC Ql (U) Negative Negative [facility] RBC Ql (U) 0 SEEN /hpf 0-5 [facility] Urine clarityOrdered By: Caitlyn Cunningham on 02-10-2023 Clarity (U) Clear Clear [facility] Urine color determinationOrd ered By: Brian Cunningham on 02-10-2023 Color (U) Yellow Yellow [facility] Urine glucose detectionOrder ed By: Brian Cunningham on 02-10-2023 Glucose Ql (U) Normal mg/dl Normal [facility] Urine leukocyte esterase det ection by dipstickOrdered By: Brian Cunningham on 02-10-2023 Leukocyte esterase Test strip Ql (U) 25 /ul Negative [facility] Urine pHOrdered By: Brian swain on 02-10-2023 pH (U) 6.5 [pH] 5.0 - 8.0 [facility] Urine sediment bacteria coun t by microscopy (number/high power field)Ordered By: Brian Cunningham on 02-10-2023 Bacteria LM.HPF (Urine sed) [#/Area] 0 /[HPF] None Seen [facility] Urine specific gravity measu rementOrdered By: Brian Cunningham on 02-10-2023 Specific gravity (U) [Rel density] 1.015 1.002-1.03 0 [facility] Urobilinogen Auto test strip Ql (U)Ordered By: Brian Cunningham on 02-10-2023 Urobilinogen Ql (U) 4 mg/dl Normal [facility] CT HEAD [...] 11/17/2022 4:26:20 PM Ordering Provider: STERLING LYNCH [facility] ([place]) XR Pelvis and Hip - left AP and Lateral frogon 05-21-2022 IMPRESSION: No acute fracture or hip dislocation [employer]: [facility] Transcribe Date/Time: May 21 2022 3:41P Dictated by : JUDY MCKENZIE MD This examination was interpreted and the report reviewed and electronically signed by: JUDY MCKENZIE MD on May 21 2022 3:43PM [facility] DIVISION OF RADIOLOGY * * *Final [...] Small acetabular osteophytes. DIVISION OF RADIOLOGY Provider, [facility] - 05/21/2022 * * *Final [...] IMPRESSION: No acute fracture or hip dislocation [employer]: [facility] Transcribe Date/Time: May 21 2022 3:41P Dictated by : JUDY MCKENZIE MD This examination was interpreted and the report reviewed and electronically signed by: JUDY MCKENZIE MD on May 21 2022 3:43PM EST [facility] Radiology Study observation (narrative) [facility] XR Pelvis and Hip - left AP and Lateral frogOrdered By: [facility] Provider on 05-21-2022 [facility] PT panel Coag (PPP)on 2022 INR Coag (Bld) [Relative time] 1.7 {INR} [facility] Basophil percentageon 2021 Cholesterol [Mass/Vol] 152 mg/dL <200 [facility] Work Phone: Comment on above: <200 mg/dL Desirable 200-240 mg/dL Borderline >240 mg/dL High Risk Triglyceride [Mass/Vol] 76 mg/dL <199 [facility] Work Phone: Comment on above: The drugs N-Acetylcy steine and Metamizole may falsely depress this assay.Serum Triglycerides Reference Interval Normal <150 mg/dL Borderline high 150 - 199 mg/dL High 200 - 499 mg/dL Very High > or = 500 mg/dL INR in Blood by Coagulation assayon 12-22-2021 INR Coag (Bld) [Relative time] 2.5 {INR} [facility] Work Phone: Laboratory - Chemistry and C hemistry - challengeon 12-22-2021 Magnesium [Mass/Vol] 2.1 mg/dL 1.6-2.[address] [facility] Work Phone: Laboratory - Coagulationon 1 PT Coag (PPP) [Time] 27.0 s 11.7-14.[address] [facility] Work Phone: No Panel Informationon 12-22 Thyroid Stimulating Hormone (TSH) 0.42 uIU/mL 0.358-3.74 [facility] Work Phone: Serum or plasma cholesterol in HDL measurement (mass/volume)on 12-22-2021 Cholesterol in HDL [Mass/Vol] 35 mg/dL >40 [facility] Work Phone: Comment on above: The drugs N-Acetylcy steine and Metamizole may falsely depress this assay. Reference Range HDL <40 mg/dL Low HDL Cholesterol HDL >or= 60 mg/dL High HDL Cholesterol Serum or plasma cholesterol in VLDL measurement (mass/volume)on 12-22-2021 Cholesterol in VLDL [Mass/Vol] 15 mg/dL 5-40 [facility] Work Phone: Serum or plasma low density lipoprotein (LDL) cholesterol measurement (mass/volume)on 12-22-2021 Cholesterol in LDL [Mass/Vol] 102 mg/dL 0-130 [facility] Work Phone: Whole blood hemoglobin A1c/t otal hemoglobin ratio (mass fraction)on 12-22-2021 HbA1c (Bld) [Mass fraction] 5.9 % 3.8-5.6 [facility] Work Phone: Comment on above: Normal < 5.7 % Predi abetic 5.7 - 6.4 % Diabetic >or= 6.5 % Please note range changes. Absolute lymphocyte counton 12-21-2021 Lymphocytes Auto (Unsp spec) [#/Vol] 1.23 10*3/uL 0.83-4.51 [facility] Work Phone: Basophil percentageon 2021 Basophils/100 WBC (Bld) 0.4 % 0-1 [facility] Work Phone: Chloride [Moles/Vol] 106 mmol/L 98-[address] [facility] Work Phone: Eosinophils/100 WBC (Bld) 1.4 % 0-5 [facility] Work Phone: Glucose [Mass/Vol] 107 mg/dL 74-106 [facility] Work Phone: Comment on above: Fasting Glucose resu lt from 100 to 125 mg/dL suggests IMPAIRED HOMEOSTASIS per A.D.A. criteria. Neutrophils (Bld) [#/Vol] 5.7 10*3/uL 2.0-7.7 [facility] Work Phone: Neutrophils/100 WBC (Bld) 72.4 % 47-70 [facility] Work Phone: Potassium [Moles/Vol] 3.7 mmol/L 3.5-5.1 [facility] Work Phone: Sodium [Moles/Vol] 141 mmol/L 136-145 [facility] Work Phone: WBC (Bld) [#/Vol] 7.9 10*3/uL 4.4-11.0 [facility] Work Phone: [phone] Blood erythrocytes count (nu mber/volume)on 12-21-2021 RBC (Bld) [#/Vol] 4.85 10*6/uL 4.6-6.2 [facility] Work Phone: Blood hemoglobin measurement (mass/volume)on 12-21-2021 Hemoglobin (Bld) [Mass/Vol] 14.5 g/dL 13.0-16.5 [facility] Work Phone: Blood lymphocytes/100 leukoc yteson 12-21-2021 Lymphocytes/100 WBC (Bld) 15.5 % 19-41 [facility] Work Phone: Blood monocytes/100 leukocyt eson 12-21-2021 Monocytes/100 WBC (Bld) 9.9 % 0-10 [facility] Work Phone: Blood platelet mean volumeon 12-21-2021 Platelet mean volume (Bld) [Entitic vol] 10.2 fL 6.2-12.0 [facility] Work Phone: Determination of erythrocyte mean corpuscular volume (MCV)on 12-21-2021 MCV (RBC) [Entitic vol] 92.0 fL 80-94 [facility] Work Phone: Hematocrit Auto (Bld) [Volum e fraction]on 12-21-2021 Hematocrit (Bld) [Volume fraction] 44.6 % 40-54 [facility] Work Phone: INR in Blood by Coagulation assayon 12-21-2021 INR Coag (Bld) [Relative time] 2.3 {INR} [facility] Work Phone: Laboratory - Chemistry and C hemistry - challengeon 12-21-2021 CO2 [Moles/Vol] 29.0 mmol/L 21.0-32.0 [facility] Work Phone: Urea nitrogen/Creatinine [Mass ratio] 21.8 mg/mg 10-20 [facility] Work Phone: Laboratory - Coagulationon 1 aPTT Coag (Bld) [Time] 36.6 s 24.1-36.2 [facility] Work Phone: PT Coag (PPP) [Time] 24.7 s 11.7-14.[address] [facility] Work Phone: Laboratory - Hematology and Cell countson 12-21-2021 Erythrocyte distribution width (RBC) [Entitic vol] 42.2 fL 35.1-43.9 [facility] Work Phone: Erythrocyte distribution width (RBC) [Ratio] 12.5 % 11.6-14.6 [facility] Work Phone: Immature granulocytes/100 WBC (Bld) 0.400 % 0.0-0.9 [facility] Work Phone: Comment on above: IG% - Immature Granu locytes (promyelocytes, myelocytes and metamyelocytes) > 1% indicates that a LEFT SHIFT is Present. MCH (RBC) [Entitic mass] 29.9 pg 27.0-32.0 [facility] Work Phone: Nucleated RBC/100 WBC (Bld) [Ratio] 0 % 0-5 [facility] Work Phone: MCHC Auto (RBC) [Mass/Vol]on 12-21-2021 MCHC (RBC) [Mass/Vol] 32.5 g/dL 32-36 [facility] Work Phone: No Panel Informationon 12-21 Estimated Creatinine Clearance Calc 66.90 ml/min [facility] Work Phone: Estimated GFR (MDRD) Amer 107 mL/min >60 [facility] Work Phone: Comment on above: GFR Calc Estimated GFR (MDRD) Non-Af Amer 88 mL/min >60 [facility] Work Phone: Comment on above: Non- GFR Calc Troponin I High Sensitivity 13 pg/mL 3.0-78.0 [facility] Work Phone: Comment on above: Please Note: New [place] Units and Gender Specific Reference Ranges. For more information see Policy Stat Procedure [place] High Sensitivity Troponin (TNIH) and attachments. Platelets bldon 12-21-2021 Platelets (Bld) [#/Vol] 241 10*3/uL 150-450 [facility] Work Phone: Serum or plasma calcium alvaro urement (mass/volume)on 12-21-2021 Calcium [Mass/Vol] 9.2 mg/dL 8.5-10.1 [facility] Work Phone: Serum or plasma creatinine m easurement (mass/volume)on 12-21-2021 Creatinine [Mass/Vol] 0.87 mg/dL 0.70-1.30 [facility] Work Phone: Comment on above: The validity of the calculated GFR & GFRAA in patients over 70 years has not been determined. Clinical correlation is essential. Serum or plasma urea nitroge n measurement (mass/volume)on 12-21-2021 Urea nitrogen [Mass/Vol] 19 mg/dL 7-18 [facility] Work Phone: Thin prep Papanicolaou smear with manual screeningon 12-21-2021 Thin prep Papanicolaou smear with manual screening 6 5-15 [facility] Work Phone: CBC panel Auto (Bld)on 07-08 Erythrocyte distribution width (RBC) [Ratio] 13.1 % 11.5 - 15.0 % [facility] Hematocrit (Bld) [Volume fraction] 49.5 % 39.0 - 51.0 % [facility] Hemoglobin (Bld) [Mass/Vol] 15.9 g/dL 13.0 - 17.0 g/dL [facility] MCH (RBC) [Entitic mass] 29.6 pg 26.0 - 34.0 pg [facility] MCHC (RBC) [Mass/Vol] 32.1 g/dL 30.5 - 36.0 g/dL [facility] MCV (RBC) [Entitic vol] 92.2 fL 80.0 - 100.0 fL [facility] Nucleated RBC (Bld) [#/Vol] 10*3/uL <0.01 k/uL [facility] Platelet mean volume (Bld) [Entitic vol] 10.7 fL 9.0 - 12.7 fL [facility] Platelets (Bld) [#/Vol] 235 10*3/uL 150 - 400 k/uL [facility] RBC (Bld) [#/Vol] 5.37 10*6/uL 4.20 - 6.00 m/uL [facility] WBC (Bld) [#/Vol] 10.33 10*3/uL 3.70 - 11.00 k/uL [facility] XR Lumbar spine 3 Viewson IMPRESSION: 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 Canvas Baster Jumpbasting: PSCB Transcribe Date/Time: Mar 13 2020 8:34A Dictated by : GABRIELLE BENTLEY MD This examination was interpreted and the report reviewed and electronically signed by: GABRIELLE BENTLEY MD on Mar 13 2020 8:35AM [facility] DIVISION OF RADIOLOGY * * *Final [...] spine are presented. FINDINGS: There are five eis-tvx-jkofvmp lumbar vertebrae. No fracture or subluxations are noted. L5-S1 disc space narrowing is demonstrated. There is significant osteophyte formation. Kissing spine seen on lateral view. DIVISION OF RADIOLOGY Provider, [facility] - 03/13/2020 * * *Final [...] spine are presented. FINDINGS: There are five woa-jbd-jnonrfb lumbar vertebrae. No fracture or subluxations are noted. L5-S1 disc space narrowing is demonstrated. There is significant osteophyte formation. Kissing spine seen on lateral view. 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 [facility] Jumpbasting[facility] Transcribe Date/Time: Mar 13 2020 8:34A Dictated by : GABRIELLE BENTLEY MD This examination was interpreted and the report reviewed and electronically signed by: GABRIELLE BENTLEY MD on Mar 13 2020 8:35AM EST [facility] XR Lumbar spine 3 ViewsOrder ed By: [facility] Provider on 03-13-2020 [facility] XR Lumbar spine 3 Viewson Radiology Study observation (narrative) [facility] PROGRESSon 06-09-2017 PROGRESS HNO ID: [id number] Author: Vesta Marin PSR Service: (none) Author Type: (none) Type: Progress Notes Filed: 06/09/2017 4:13 PM Note Text: Spoke with the patient and scheduled his Corotid Doppler on June 24, 2017 at 9:00 am Normal [facility] CNOVon 06-02-2017 CNOV Office Visit (AGCARDWST) -------ROBY FLORES ([id number]) 1935 MDate Time Provider Department06/02/17 9:00 AM DARRELL OLIVEIRA AGCARDWST During your visit today, we recorded the following information about you: Pulse Blood pressure Weight 70/minute 116/67 79.5 kgDarrell Oilveira MD 06/02/2017 9:31 AM SignedPERTINENT CARDIAC HISTORYASHD - PCI LAD 2003HTNHLCarotid diseaseSyncopePAFADHERENCE TO GUIDELINESACE-I or ARB for HF with prior LVEFANDlt;40 (NQF 0081) - N/AASA or Plavix for ASHD (NQF 0067) - METBeta jazmin for ASHD with prior IA or prior LVEFANDlt;40 (NQF 0070) - N/ABeta [...] weeks.He will be getting labs from the [facility] in the near future and I've askedfor a copy.INR has been within range. He is due today.I will see him in 8 months or as needed. If there is increased chest pain orrecurrent syncope, he has been advised to contact me.Written and verbal health teaching given to patient, patient verbalizesunderstanding and agrees with treatment plan.This note was generated using [employer] voice recognition system, and there may besome [...] There is no significantchange.Electronic ally Signed:Darrell Oliveira, [facility] 2017 9:15 [facility]: Stas D Carmen Mora MD 06/02/2017 9:21 AM AddendumDecrease fosinopril to [...] physician about programs in your area.Vesta Henao Tomas PSR 06/09/2017 4:13 PM SignedSpoke with the patient and scheduled his Corotid Doppler on June 24, 2017 at9:00 amReferring Provider: DARRELL OLIVEIRA [[id number]]Allergies As of Date: 06/02/2017(No Known Allergies)Date Reviewed: 06/02/2017Reviewed by: Russell (Rudy) Anabella - Fully AssessedReason for Visit: Recheck [92]Primary Visit Diagnosis:ASHD (arteriosclerotic heart disease) [I25.10] Other Visit Diagnosis:PAF (paroxysmal atrial fibrillation) (HCC) [I48.0]Order(s):ECG B/O W INTERP (MED OFFICE) [ECG06] Order #: [id number] Fosinopril Sodium 40 mg tabletTake 1/2 tablet [...] FOR* 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 Please give serious thought to the following areas and commit to making watermaster changes. EAT A WHOLE FOOD, PLANT BASED [...] on file. Cosign accepted by STAS MORA MD[[id number]] on 09/30/2016 2:01 PM Fosinopril Sodium 40 [...] on file.Follow-up and Disposition History RecordedEncounter Number: [id number] Status:Closed by DARRELL OLIVEIRA MD on 06/02/17 [facility] PROGRESSon 06-02-2017 PROGRESS HNO ID: [id number] thor: Darrell Stahl: (none)Author Type: PhysicianType: Progress NotesFiled: 06/02/2017 9:31 AMNote Text:PERTINENT CARDIAC HISTORYASHD - PCI LAD 2003HTNHLCarotid diseaseSyncopePAFADHERENCE TO GUIDELINESACE-I or ARB for HF with prior LVEF<40 (NQF 0081) - N/AASA or Plavix for ASHD (NQF 0067) - METBeta jazmin for ASHD with prior IA or prior LVEF<40 (NQF 0070) - N/ABeta [...] weeks.He will be getting labs from the [facility] in the near future and I'veasked for a copy.INR has been within range. He is due today.I will see him in 8 months or as needed. If there is increased chest painor recurrent syncope, he has been advised to contact me.Written and verbal health teaching given to patient, patient verbalizesunderstanding and agrees with treatment plan.This note was generated using [employer] voice recognition system, and theremay be some [...] ectopics. There is nosignificant change.Electronically Signed:Darrell Oliveira [facility] 2017 9:15 [facility]: Stas Mora MD 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 Time Provider Wqujchmgyi05/3/17 DARRELL OLIVEIRA AGCARDWST During your visit today, we recorded the following information about you:Dao Bishop RN, RN 01/23/2017 3:15 PM SignedPatient phones requesting refills as follows:Pending Prescriptions Disp Refills WARFARIN 2.5 MG TABLET 45 tablet 11 Sig: Take 1 tablet by mouth daily as directed. 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 Stas Mora MD Work Phone: 2(791)566-986266 [place] [address] 09-06-2024 14:15-0400 Body temperature 98 [degF] Dr. Stas Mora MD Work Phone: 5(196)474-146266 [place] [address] 09-06-2024 14:15-0400 Diastolic blood pressure 88 mm[Hg] Dr. Stas Mora MD Work Phone: 3(321)040-194066 [place] [address] 09-06-2024 14:15-0400 Heart rate 78 /min Dr. Stas Mora MD Work Phone: 4(748)605-438366 [place] [address] 09-06-2024 14:15-0400 Respiratory rate 18 /min Dr. Stas Mora MD Work Phone: 4(681)765-741466 [place] [address] 09-06-2024 14:15-0400 SaO2% (BldA) [Mass fraction] 97 % Dr. Stas Mora MD Work Phone: 2(590)376-801666 [place] [address] 09-06-2024 14:15-0400 Systolic blood pressure 137 mm[Hg] Dr. Stas Mora MD Work Phone: 2(101)037-127566 [place] [address] 09-04-2024 12:05-0400 Inhaled oxygen flow rate 2 L/min Dr. Stas Mora MD Work Phone: 9(441)809-991266 [place] [address] 09-01-2024 11:52-0400 Body height 182.[address] Stas Mora MD Work Phone: 4(017)234-183866 [place] [address] 09-01-2024 11:52-0400 Body mass index (BMI) [Ratio] 21.6 kg/m2 Dr. Stas Mora MD Work Phone: 6(535)160-742866 [place] [address] 09-01-2024 11:52-0400 Body weight 72.[address] Stas Mora MD Work Phone: 2(369)691-900866 [place] [address] 09-01-2024 11:00-0400 Diastolic blood pressure 79 mm[Hg] Dr. Stas Mora MD Work Phone: 7(565)588-806366 [place] [address] 09-01-2024 11:00-0400 Heart rate 70 /min Dr. Stas Mora MD Work Phone: 1(657)707-493266 [place] [address] 09-01-2024 11:00-0400 Respiratory rate 18 /min Dr. Stas Mora MD Work Phone: 3(043)532-358066 [place] [address] 09-01-2024 11:00-0400 SaO2% (BldA) [Mass fraction] 98 % Dr. Stas Mora MD Work Phone: 9(127)170-348566 [place] [address] 09-01-2024 11:00-0400 Systolic blood pressure 180 mm[Hg] Dr. Stas Mroa MD Work Phone: 1(168)713-216066 [place] [address] 09-01-2024 09:52-0400 Body temperature 98.9 [degF] Dr. Stas Mora MD Work Phone: 6(568)415-562966 [place] [address] 09-01-2024 07:31-0400 Body height 182.[address] Stas Mora MD Work Phone: 1(675)145-821266 [place] [address] 09-01-2024 07:31-0400 Body mass index (BMI) [Ratio] 23.4 kg/m2 Dr. Stas Mora MD Work Phone: 2(916)444-137766 [place] [address] 09-01-2024 07:31-0400 Body weight 78.[address] Stas Mora MD Work Phone: 7(093)408-218266 [place] [address] 08-31-2024 11:05-0400 Body mass index (BMI) [Ratio] 22.35 kg/m2 Luciana Cisneros MD Work Phone: [facility] 08-31-2024 11:05-0400 Body weight 73.94 kg Luciana Cisneros MD Work Phone: [facility] 08-31-2024 11:05-0400 Diastolic blood pressure 74 mm[Hg] Luciana Cisneros MD Work Phone: [facility] 08-31-2024 11:05-0400 Heart rate 74 /min Luciana Cisneros MD Work Phone: [facility] 08-31-2024 11:05-0400 Respiratory rate 12 /min Luciana Cisneros MD Work Phone: [facility] 08-31-2024 11:05-0400 SaO2% (BldA) [Mass fraction] 98 % Luciana Cisneros MD Work Phone: [facility] 08-31-2024 11:05-0400 Systolic blood pressure 124 mm[Hg] Luciana Cisneros MD Work Phone: [facility] 07-28-2024 11:12-0400 Diastolic blood pressure 78 mm[Hg] Stas Mora MD Work Phone: [facility] 07-28-2024 11:12-0400 Systolic blood pressure 136 mm[Hg] Stas Mora MD Work Phone: [facility] 07-28-2024 11:10-0400 Body mass index (BMI) [Ratio] 22.4 kg/m2 Stas Mora MD Work Phone: [facility] 07-28-2024 11:10-0400 Body weight 74.1 kg Stas Mora MD Work Phone: [facility] 07-28-2024 11:10-0400 Heart rate 56 /min Stas Mora MD Work Phone: [facility] 07-28-2024 11:10-0400 Respiratory rate 16 /min Stas Mora MD Work Phone: [facility] 06-01-2024 14:52-0400 Body height 181.9 cm Luciana Cisneros MD Work Phone: [facility] 06-01-2024 14:52-0400 Body mass index (BMI) [Ratio] 22.33 kg/m2 Luciana Cisneros MD Work Phone: [facility] 06-01-2024 14:52-0400 Body weight 73.85 kg Luciana Cisneros MD Work Phone: [facility] 06-01-2024 14:52-0400 Diastolic blood pressure 60 mm[Hg] Luciana Cisneros MD Work Phone: [facility] 06-01-2024 14:52-0400 Heart rate 46 /min Luciana Cisneros MD Work Phone: [facility] 06-01-2024 14:52-0400 SaO2% (BldA) [Mass fraction] 98 % Luciana Cisneros MD Work Phone: [facility] 06-01-2024 14:52-0400 Systolic blood pressure 132 mm[Hg] Luciana Cisneros MD Work Phone: [facility] 05-26-2024 09:18-0500 Diastolic blood pressure 82 mm[Hg] Stas Mora MD Work Phone: [facility] 05-26-2024 09:18-0500 Systolic blood pressure 144 mm[Hg] Stas Mora MD Work Phone: [facility] 05-26-2024 09:06-0500 Body mass index (BMI) [Ratio] 22.19 kg/m2 Stas Mora MD Work Phone: [facility] 05-26-2024 09:06-0500 Body weight 73.5 kg Stas Mora MD Work Phone: [facility] 05-26-2024 09:06-0500 Heart rate 56 /min Stas Mora MD Work Phone: [facility] 05-26-2024 09:06-0500 Respiratory rate 18 /min Stas Mora MD Work Phone: [facility] 04-27-2024 09:34-0500 Body height 182 cm Luciana Cisneros MD Work Phone: [facility] 04-27-2024 09:34-0500 Body mass index (BMI) [Ratio] 22.51 kg/m2 Luciana Cisenros MD Work Phone: [facility] 04-27-2024 09:34-0500 Body weight 74.57 kg Luciana Cisneros MD Work Phone: [facility] 04-27-2024 09:34-0500 Diastolic blood pressure 62 mm[Hg] Luciana Cisneros MD Work Phone: [facility] 04-27-2024 09:34-0500 Heart rate 60 /min Luciana Cisneros MD Work Phone: [facility] 04-27-2024 09:34-0500 SaO2% (BldA) [Mass fraction] 98 % Luciana Cisneros MD Work Phone: [facility] 04-27-2024 09:34-0500 Systolic blood pressure 110 mm[Hg] Luciana Cisneros MD Work Phone: [facility] 11-26-2023 10:33-0400 Diastolic blood pressure 80 mm[Hg] Stas Mora MD Work Phone: [facility] 11-26-2023 10:33-0400 Systolic blood pressure 144 mm[Hg] Stas Mora MD Work Phone: [facility] 11-26-2023 10:22-0400 Body mass index (BMI) [Ratio] 21.95 kg/m2 Stas Mora MD Work Phone: [facility] 11-26-2023 10:22-0400 Body weight 71.4 kg Stas Mora MD Work Phone: [facility] 11-26-2023 10:22-0400 Heart rate 60 /min Stas Mora MD Work Phone: [facility] 11-26-2023 10:22-0400 Respiratory rate 18 /min Stas Mora MD Work Phone: [facility] 09-15-2023 08:38-0400 Body mass index (BMI) [Ratio] 24.52 kg/m2 Stas Mora MD Work Phone: [facility] 09-15-2023 08:38-0400 Body weight 79.74 kg Stas Mora MD Work Phone: [facility] 09-15-2023 08:38-0400 Diastolic blood pressure 84 mm[Hg] Stas Mora MD Work Phone: [facility] 09-15-2023 08:38-0400 Heart rate 76 /min Stas Mora MD Work Phone: [facility] 09-15-2023 08:38-0400 Respiratory rate 18 /min Stas Mora MD Work Phone: [facility] 09-15-2023 08:38-0400 Systolic blood pressure 138 mm[Hg] Stas Mora MD Work Phone: [facility] 08-14-2023 09:57-0400 Body mass index (BMI) [Ratio] 22.59 kg/m2 Stas Mora MD Work Phone: [facility] 08-14-2023 09:57-0400 Body weight 73.48 kg Stas Mora MD Work Phone: [facility] 08-14-2023 09:57-0400 Diastolic blood pressure 80 mm[Hg] Stas Mora MD Work Phone: [facility] 08-14-2023 09:57-0400 Heart rate 64 /min Stas Mora MD Work Phone: [facility] 08-14-2023 09:57-0400 Respiratory rate 14 /min Stas Mora MD Work Phone: [facility] 08-14-2023 09:57-0400 Systolic blood pressure 140 mm[Hg] Stas Mora MD Work Phone: [facility] 06-01-2023 15:08-0400 Body weight 75.75 kg Stas Mora MD Work Phone: [facility] 06-01-2023 15:08-0400 Diastolic blood pressure 90 mm[Hg] Stas Mora MD Work Phone: [facility] 06-01-2023 15:08-0400 Heart rate 82 /min Stas Mora MD Work Phone: [facility] 06-01-2023 15:08-0400 Respiratory rate 16 /min Stas Mora MD Work Phone: [facility] 06-01-2023 15:08-0400 SaO2% (BldA) [Mass fraction] 100 % Stas Mora MD Work Phone: [facility] 06-01-2023 15:08-0400 Systolic blood pressure 140 mm[Hg] Stas Mora MD Work Phone: [facility] 02-16-2023 13:57-0500 Diastolic blood pressure 62 mm[Hg] Stas Mora MD Work Phone: [facility] 02-16-2023 13:57-0500 Heart rate 62 /min Stas Mora MD Work Phone: [facility] 02-16-2023 13:57-0500 Respiratory rate 16 /min Stas Mora MD Work Phone: [facility] 02-16-2023 13:57-0500 Systolic blood pressure 110 mm[Hg] Stas Mora MD Work Phone: [facility] 02-10-2023 16:59-0500 Diastolic blood pressure 68 mm[Hg] [facility] 02-10-2023 16:59-0500 Heart rate 79 /min [facility] 02-10-2023 16:59-0500 Respiratory rate 12 /min [facility] 02-10-2023 16:59-0500 SaO2% (BldA) [Mass fraction] 98 % [facility] 02-10-2023 16:59-0500 Systolic blood pressure 153 mm[Hg] [facility] 02-10-2023 14:37-0500 Body mass index (BMI) [Ratio] 22.1 kg/m2 [facility] 02-10-2023 14:37-0500 Body weight 74.3 kg [facility] 02-10-2023 14:32-0500 Body height 182.88 cm [facility] 02-10-2023 14:32-0500 Body temperature 98 [degF] [facility] 11-17-2022 17:22-0400 Diastolic Blood Pressure Non-Invasive 68 1 STERLING FROMMELT DO [facility] 11-17-2022 17:22-0400 Heart rate 76 /min STERLING FROMMELT DO [facility] 11-17-2022 17:22-0400 Respiratory rate 18 /min STERLING CISNEROSClusterizeT DO [facility] 11-17-2022 17:22-0400 Systolic Blood Pressure Non-Invasive 126 1 STERLING CISNEROSClusterizeT DO [facility] 11-17-2022 15:23-0400 Body height 185.4 cm STERLING CISNEROSClusterizeT DO [facility] 11-17-2022 15:23-0400 Body temperature 97.88 [degF] STERLING DAIGLET DO [facility] 11-17-2022 15:23-0400 Body weight 79.6 kg STERLING FROMClusterizeT DO [facility] 11-17-2022 15:23-0400 Diastolic Blood Pressure Non-Invasive 70 1 STERLING CISNEROSClusterizeT DO [facility] 11-17-2022 15:23-0400 Heart rate 89 /min STERLING CISNEROSClusterizeT DO [facility] 11-17-2022 15:23-0400 Respiratory rate 18 /min STERLING CISNEROSClusterizeT DO [facility] 11-17-2022 15:23-0400 Systolic Blood Pressure Non-Invasive 134 1 STERLING CISNEROSClusterizeT DO [facility] 08-26-2022 13:12-0400 Body height 180.3 cm Stas Mora MD Work Phone: [facility] 08-26-2022 13:12-0400 Body weight 78.74 kg Stas Mora MD Work Phone: [facility] 08-26-2022 13:12-0400 Diastolic blood pressure 74 mm[Hg] Stas Mora MD Work Phone: [facility] 08-26-2022 13:12-0400 Heart rate 66 /min Stas Mora MD Work Phone: [facility] 08-26-2022 13:12-0400 Respiratory rate 16 /min Stas Mora MD Work Phone: [facility] 08-26-2022 13:12-0400 Systolic blood pressure 122 mm[Hg] Stas Mora MD Work Phone: [facility] 12-26-2021 11:22-0400 Body weight 78.56 kg Stas Mora MD Work Phone: [facility] 12-26-2021 11:22-0400 Diastolic blood pressure 80 mm[Hg] Stas Mora MD Work Phone: [facility] 12-26-2021 11:22-0400 Heart rate 58 /min Stas Mora MD Work Phone: [facility] 12-26-2021 11:22-0400 Respiratory rate 16 /min Stas Mora MD Work Phone: [facility] 12-26-2021 11:22-0400 Systolic blood pressure 142 mm[Hg] Stas Mora MD Work Phone: [facility] 12-22-2021 11:13-0400 Body temperature 97.6 [degF] Dr. Stas Mora Work Phone: [facility] Work Phone: 12-22-2021 11:13-0400 Diastolic blood pressure 58 mm[Hg] Dr. Stas Mora Work Phone: [facility] Work Phone: 12-22-2021 11:13-0400 Heart rate 63 /min Dr. Stas Mora Work Phone: [facility] Work Phone: 12-22-2021 11:13-0400 Respiratory rate 16 /min Dr. Stas Mora Work Phone: [facility] Work Phone: 12-22-2021 11:13-0400 SaO2% (BldA) [Mass fraction] 96 % Dr. Stas Mora Work Phone: [facility] Work Phone: 12-22-2021 11:13-0400 Systolic blood pressure 142 mm[Hg] Dr. Stas Mora Work Phone: [facility] Work Phone: 12-21-2021 20:06-0400 Body height 182.[address] Stas Mora Work Phone: [facility] Work Phone: 12-21-2021 20:06-0400 Body mass index (BMI) [Ratio] 22.6 kg/m2 Dr. Stas Mora Work Phone: [facility] Work Phone: 12-21-2021 20:06-0400 Body weight 75.[address] Stas Mora Work Phone: [facility] Work Phone: 12-21-2021 19:15-0400 Diastolic blood pressure 81 mm[Hg] [facility] Work Phone: 12-21-2021 19:15-0400 Heart rate 70 /min [facility] Work Phone: 12-21-2021 19:15-0400 Respiratory rate 18 /min [facility] Work Phone: 12-21-2021 19:15-0400 SaO2% (BldA) [Mass fraction] 96 % [facility] Work Phone: 12-21-2021 19:15-0400 Systolic blood pressure 171 mm[Hg] [facility] Work Phone: 12-21-2021 19:02-0400 Body temperature 97.6 [degF] [facility] Work Phone: 12-21-2021 18:17-0400 Body height 182.88 cm [facility] Work Phone: 12-21-2021 18:17-0400 Body mass index (BMI) [Ratio] 24.2 kg/m2 [facility] Work Phone: 12-21-2021 18:17-0400 Body weight 80.9 kg [facility] Work Phone: 09-05-2021 11:21-0400 Body height 182.9 cm Stas Mora MD Work Phone: [facility] 09-05-2021 11:21-0400 Body weight 80.2 kg Stas Mora MD Work Phone: [facility] 09-05-2021 11:21-0400 Diastolic blood pressure 70 mm[Hg] Stas Mora MD Work Phone: [facility] 09-05-2021 11:21-0400 Heart rate 62 /min Stas Mora MD Work Phone: [facility] 09-05-2021 11:21-0400 Respiratory rate 16 /min Stas Mora MD Work Phone: [facility] 09-05-2021 11:21-0400 Systolic blood pressure 136 mm[Hg] Stas Mora MD Work Phone: [facility] 07-08-2021 10:41-0400 Body weight 83.55 kg Stas Mora MD Work Phone: [facility] 07-08-2021 10:41-0400 Diastolic blood pressure 78 mm[Hg] Stas Mora MD Work Phone: [facility] 07-08-2021 10:41-0400 Heart rate 60 /min Stas Mora MD Work Phone: [facility] 07-08-2021 10:41-0400 Respiratory rate 16 /min Stas Mora MD Work Phone: [facility] 07-08-2021 10:41-0400 Systolic blood pressure 120 mm[Hg] Stas Mora MD Work Phone: [facility] Encounters Encounter Date Encounter Type Care Provider Facility Start: 01-23-2025 ambulatory Stas Mora Facilit y:[facility] Start: 01-10-2025 ambulatory Stas Mora Facilit y:[facility] Start: 12-21-2024 Registered Referred Shayy Berrios Start: 12-21-2024 End: 12-21-2024 ambulatory Stas Mora Facility:[facility] Start: 12-14-2024 Registered Referred Shayy Berrios Start: 12-14-2024 End: 12-14-2024 ambulatory Stas Mora Facility:[facility] Start: 11-30-2024 Registered Referred Shayy Berrios Start: 11-29-2024 End: 11-30-[address] Stas Mora MD Work Phone: [facility] Start: 11-29-2024 End: 11-29-[address] Shayy Curtis MD -[facility] Work Phone: Start: 11-25-2024 Registered Referred Shayy Berrios Start: 11-24-2024 End: 11-25-[address] Stas Mora MD Work Phone: [facility] Start: 11-24-2024 End: 11-24-2024 Patient encounter procedure Halina HO -[facility] Work Phone: Start: 11-23-2024 ambulatory Stas Mora Facilit y:[facility] Start: 11-23-2024 [facility] Start: 11-02-2024 ambulatory Stas Mora Facilit y:[facility] Start: 11-02-2024 [facility] Start: 10-31-2024 ambulatory Stas Mora Facilit y:[facility] Start: 10-31-2024 [facility] Start: 10-25-2024 End: 10-25-2024 ambulatory Dr. Stas Mora MD Work Phone: -[facility] Start: 10-25-2024 End: 10-25-[address] Shayy Curtis MD -[facility] Work Phone: Start: 10-20-2024 End: 10-20-[address] Stas Mora MD Work Phone: -[facility] Start: 10-20-2024 End: 10-20-2024 Patient encounter procedure Halina HO -[facility] Work Phone: Start: 10-06-2024 ambulatory Stas Mora Facilit y:[facility] Start: 10-06-2024 Registered Referred Shayy MaloneyElmer - [facility] Start: 10-05-2024 ambulatory Stas Mora Facilit y:[facility] Start: 10-05-2024 [facility] Start: 09-30-2024 End: 09-30-[address] Stas Mora MD Work Phone: -[facility] Start: 09-30-2024 End: 09-30-2024 Patient encounter procedure Halina HO -[facility] Work Phone: Start: 09-29-2024 ambulatory Stas Mora Facilit y:[facility] Start: 09-29-2024 Registered Referred Shayy Cardozo Start: 09-28-2024 End: 09-28-[address] Stas Mora MD Work Phone: -[facility] Start: 09-28-2024 End: 09-28-2024 Departed Referred Shayy Cardozo Start: 09-28-2024 Registered Referred Shayy Cardozo Start: 09-28-2024 End: 09-28-2024 ambulatory Efewongbe Oleghe OLS Facility:[facility] Start: 09-26-2024 End: 09-26-[address] Stas Mora MD Work Phone: -[facility] Start: 09-26-2024 End: 09-26-2024 Departed Referred Shayy Cardozo Start: 09-26-2024 Registered Referred Shayy Cardozo Start: 09-26-2024 End: 09-26-2024 ambulatory Efewrobsonbe Oletomye OLS Facility:[facility] Start: 09-23-2024 ambulatory Efewtimmy [place] OLS Fa cility:[facility] Start: 09-23-2024 Registered Referred Shayy Cardozo Start: 09-21-2024 End: 09-22-2024 Telephone encounter Stas Mora MD Work Phone: [facility] [place] Start: 09-21-2024 ambulatory Efewongbe Oletomye OLS Fa cility:[facility] Start: 09-21-2024 Registered Referred Shayy Cardozo Start: 09-20-2024 End: 09-20-[address] Stas Mora MD Work Phone: [facility] Start: 09-20-2024 End: 09-20-[address] Shayy Curtis MD [facility] Work Phone: Start: 09-19-2024 ambulatory Shayy Curtis OLS Fa cility:[facility] Start: 09-19-2024 Registered Referred Shayy Cardozo Start: 09-15-2024 ambulatory Efbaldomero Curtis OLS Fa cility:[facility] Start: 09-15-2024 Registered Referred Shayy Cardozo Start: 09-14-2024 ambulatory Efbaldomero [place] OLS Fa cility:[facility] Start: 09-14-2024 Registered Referred Shayy Cardozo Start: 09-12-2024 ambulatory Efbaldomero Curtis OLS Fa cility:[facility] Start: 09-12-2024 Registered Referred Shayy Cardozo Start: 09-08-2024 End: 09-08-2024 Patient encounter procedure Halina Carmona [facility] Work Phone: Start: 09-08-2024 End: 09-08-[address] Stas Mora MD Work Phone: [facility] Start: 09-08-2024 Registered Referred Shayy Cardozo Start: 09-07-2024 End: 09-07-2024 Patient encounter procedure Halina Carmona [facility] Work Phone: Start: 09-07-2024 End: 09-07-[address] Stas Mora MD Work Phone: [facility] Start: 09-07-2024 Registered Referred Shayy Cardozo Start: 09-06-2024 Non-patient / Non-visit Dr. Navid Dominguez MD -[facility] Work Phone: Start: 09-05-2024 Non-patient / Non-visit Dr. Navid Dominguez MD -[facility] Work Phone: Start: 09-04-2024 Non-patient / Non-visit Dr. Jia Wells MD -[facility] Work Phone: Start: 09-03-2024 Non-patient / Non-visit Dr. Jia Wells MD -[facility] Work Phone: Start: 09-02-2024 Non-patient / Non-visit Dr. Jia Wells MD -[facility] Work Phone: Start: 09-02-2024 ambulatory Stas Frankel y:[facility] Start: 09-02-2024 End: 09-06-2024 Evaluation and management of inpatient Dr. Navid Dominguez MD -[facility] Work Phone: Start: 09-01-2024 End: 09-01-2024 Telephone encounter Russelllili Petego [facility] Work Phone: [facility] Comment on above: Medication Problem ( Cost) Start: 09-01-2024 ambulatory Stas Frankel y:[facility] Start: 09-01-2024 Evaluation and management of inpatient Dr. Kathy Wells MD -[facility] Work Phone: Start: 09-01-2024 Non-patient / Non-visit Dr. Jia Wells MD -[facility] Work Phone: Start: 09-01-[address] Stas Mora MD Work Phone: [facility] Work Phone: Start: 08-31-2024 End: 08-31-2024 Telephone encounter Coretta Jalloh [facility] Telemanagement Comment on above: Anticoagulation Tele phone Fu (Home INR result ) Start: 08-31-2024 End: 08-31-2024 ambulatory STAS MORA Facility:[facility] Start: 08-31-2024 End: 08-31-2024 Office outpatient visit 25 minutes Luciana Cisneros MD Work Phone: Geriatrics Comment on above: Moderate dementia wi thout behavioral disturbance, psychotic disturbance, mood disturbance, or anxiety, unspecified dementia type (HCC) (Primary Dx); Hallucinations; Screening for depression; Encounter for screening examination for other mental health and behavioral disorders Start: 08-31-2024 End: 08-31-2024 ambulatory STAS Maya [facility] Facility:[facility] Start: 08-03-2024 End: 08-03-2024 Telephone encounter Coretta Jalloh [facility]ulatory Telemanagement Comment on above: Anticoagulation Tele phone Fu (Lab INR result) Start: 08-03-2024 End: 08-03-2024 ambulatory [facility] Facility:[facility] Start: 07-28-2024 End: 07-28-2024 Office outpatient visit 15 minutes Stas Mora MD Work Phone: [facility] [place] Comment on above: Bursitis of right el bow, unspecified bursa (Primary Dx) Start: 07-28-2024 End: 07-28-2024 ambulatory [facility] Facility:[facility] Start: 07-06-2024 End: 07-06-2024 [facility] Telemanagement Comment on above: Anticoagulation Tele phone Fu (Lab INR result ) Start: 07-06-2024 End: 07-06-2024 ambulatory [facility] Facility:[facility] Start: 06-29-2024 End: 06-29-2024 Telephone encounter Coretta Jalloh [facility]ulatory Telemanagement Comment on above: Anticoagulation Tele phone Fu (Lab INR result ) Start: 06-29-2024 End: 06-29-2024 ambulatory [facility] Facility:[facility] Start: 06-01-2024 End: 06-01-2024 Office consultation new/estab patient 80 min Luciana Cisneros MD Work Phone: Geriatrics Comment on above: Mixed dementia (HCC) (Primary Dx); Vascular parkinsonism (HCC) Start: 06-01-2024 End: 06-01-2024 ambulatory [facility] Facility:[facility] Start: 06-01-2024 End: 08-01-2024 Follow-up encounter Luciana Cisneros MD Work Phone: Geriatrics Start: 05-26-2024 End: 05-26-2024 Telephone encounter Luciana Cisneros MD Work Phone: Geriatrics Comment on above: Appointment (Resched ule for geriatric f/u) Start: 05-26-2024 End: 05-26-2024 ambulatory STAS Trejo [facility] Facility:[facility] Start: 05-26-2024 End: 05-26-2024 Patient encounter procedure Stas Mora MD Work Phone: [facility] [place] Comment on above: Essential hypertensi on, benign (Primary Dx); Hyperlipidemia, unspecified hyperlipidemia type; Atherosclerosis 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, unspecified vessel or lesion type, unspecified whether [place] or transplanted heart; Paroxysmal atrial fibrillation (HCC); Edema of both lower legs; History of stroke with residual effects; Dementia, unspecified dementia severity, unspecified dementia type, unspecified whether behavioral, psychotic, or mood disturbance or anxiety (HCC) Start: 05-25-2024 End: 05-25-2024 Telephone encounter Paige Hickman [facility] Tele[facility] Comment on above: Anticoagulation Tele phone Fu (Lab INR Result ) Start: 05-25-2024 End: 05-25-2024 ambulatory STAS Trejo [facility] Facility:[facility] Start: 05-23-2024 ambulatory LUCIANA CISNEROS Facility :[id number] Start: 05-23-2024 End: 05-23-2024 Subsequent hospital visit by physician Yordan Velasquez 1 Work Phone: [facility] Comment on above: Cognitive impairment , mild, 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] Start: 04-28-2024 End: 04-29-2024 Telephone encounter Sats Mora MD Work Phone: [facility] [place] Comment on above: Results Start: 04-27-2024 End: 04-27-2024 Telephone encounter Coretta Jalloh [facility] Telemanagement Comment on above: Anticoagulation Tele phone Fu (Lab INR result ) Start: 04-27-2024 End: 04-27-2024 ambulatory STAS VENTURAMONTPELIER Facility:[facility] Start: 04-27-2024 End: 04-27-2024 Assmt & care planning pt w/cognitive impairment Luciana Cisneros MD Work Phone: Geriatrics Comment on above: Dementia, unspecifie d dementia severity, unspecified dementia type, unspecified whether behavioral, psychotic, or mood disturbance or anxiety (HCC) (Primary Dx); Cognitive impairment; Cognitive impairment, mild, so stated; Shuffling gait; Ambulatory dysfunction; Balance disorder Start: 04-27-2024 End: 04-27-2024 ambulatory [facility] Facility:[facility] Start: 04-25-2024 End: 04-25-2024 Telephone encounter Stas Mora MD Work Phone: [facility] Comment on above: memory issues Start: 04-13-2024 End: 04-13-2024 Telephone encounter Coretta Jalloh [facility] Tele[facility] Comment on above: Anticoagulation Tele phone Fu (Home INR result ) Start: 04-13-2024 End: 04-13-2024 ambulatory [facility] Facility:[facility] Start: 03-30-2024 End: 03-30-2024 Telephone encounter Coretta Jalloh [facility] Tele[facility] Comment on above: Anticoagulation Tele phone Fu (Lab INR result ) Start: 03-30-2024 End: 03-30-2024 ambulatory [facility] Facility:[facility] Start: 03-17-2024 End: 03-17-2024 Telephone encounter Josy Gandhi [facility] Comment on above: Anticoagulation Tele phone Fu (Lab INR result ) Start: 03-17-2024 End: 03-17-2024 ambulatory [facility] Facility:[facility] Start: 03-03-2024 End: 03-03-2024 Telephone encounter Elise Paredes [facility] Telemanagement Comment on above: Anticoagulation Tele phone Fu (Lab INR result) Start: 03-03-2024 End: 03-03-2024 ambulatory [facility] Facility:[facility] Start: 02-10-2024 End: 02-10-2024 Telephone encounter Coretta Jalloh [facility] Tele[facility] Comment on above: Anticoagulation Tele phone Fu (Lab INR result ) Start: 02-10-2024 End: 02-10-2024 ambulatory [facility] Facility:[facility] Start: 01-20-2024 End: 01-20-2024 Telephone encounter Coretta Jalloh [facility] Tele[facility] Comment on above: Anticoagulation Tele phone Fu (Lab INR results ) Start: 01-04-2024 End: 01-04-2024 Telephone encounter Stas Mora MD Work Phone: [facility] [place] Comment on above: Medication Request Start: 12-24-2023 End: 12-24-2023 Telephone encounter Elise Paredes [facility] Tele[facility] Comment on above: Anticoagulation Tele phone Fu (Lab INR) Start: 12-10-2023 End: 12-10-2023 Telephone encounter Elise Paredes [facility] Tele[facility] Comment on above: Anticoagulation Tele phone Fu (Lab INR) Start: 11-26-2023 End: 11-26-2023 Telephone encounter Elise Paredes [facility] Comment on above: Anticoagulation Tele phone Fu (Lab INR) Start: 11-26-2023 End: 11-26-2023 Patient encounter procedure Stas Mora MD Work Phone: [facility] [place] Comment on above: Essential hypertensi on, benign (Primary Dx); Hyperlipidemia, unspecified hyperlipidemia type; Edema of both lower legs; Paroxysmal atrial fibrillation (HCC); History of stroke with residual effects; 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, psychotic disturbance, mood disturbance, or anxiety (HCC); Urinary frequency; Abnormal CBC Start: 11-18-2023 End: 11-18-2023 Telephone encounter Coretta Jalloh [facility] Comment on above: Anticoagulation Tele phone Fu (Home INR) Start: 11-16-2023 End: 11-16-2023 Refill Stas Mora MD Work Phone: [facility] [place] Comment on above: Refill Request Start: 10-14-2023 Telephone encounter Coretta Jalloh [facility] Ambulatory Telemanagement Comment on above: Anticoagulation Tele phone Fu (Home INR results ) Start: 09-16-2023 Telephone encounter Colleen Sommer [facility] Telemanagement Comment on above: Anticoagulation Tele phone Fu Start: 09-15-2023 End: 09-15-2023 Patient encounter procedure Stas Mora MD Work Phone: [facility] [place] Comment on above: Edema of both lower legs (Primary Dx) Start: 09-14-2023 End: 09-14-2023 ambulatory Nurse Intm/Famp Triage [facility] Work Phone: Nurse Phone Triage Comment on above: Leg swelling Start: 09-02-2023 Telephone encounter [facility] Comment on above: Anticoagulation Tele phone Fu (Lab INR results) Start: 08-26-2023 Telephone encounter [facility] Comment on above: Anticoagulation Tele phone Fu (Lab INR results ) Start: 08-19-2023 Telephone encounter [facility] Comment on above: Anticoagulation Tele phone Fu (Lab INR) Start: 08-14-2023 End: 08-14-2023 Patient encounter procedure Stas Mora MD Work Phone: [facility] Comment on above: Moderate vascular de mentia without behavioral disturbance, psychotic disturbance, mood disturbance, or anxiety (HCC) (Primary Dx); Essential hypertension, benign; Paroxysmal atrial fibrillation (HCC) Start: 08-12-2023 Telephone encounter [facility] Ambulatory [...] ow Up Start: 07-22-2023 Telephone encounter [facility] Comment on above: Anticoagulation Tele phone Fu (Lab INR results ) Start: 07-16-2023 Refill Elvis RASHID RN.ARCHAEOLOGY PROFESSOR Work Phone: [facility] Comment on above: Refill Request Start: 07-15-2023 Telephone encounter [facility] Comment on above: Anticoagulation Tele phone Fu (Lab INR results ) Start: 07-08-2023 Telephone encounter [facility] Comment on above: Anticoagulation Tele phone Fu (Lab INR ) Start: 07-02-2023 Telephone encounter [facility] Comment on above: Opened In Error Start: 07-01-2023 Telephone encounter [facility]ta [facility]alloh [facility] Ambulatory Tele[facility] Comment on above: Anticoagulation Tele phone Fu (Home INR ) Start: 06-25-2023 End: 04-13-2024 Telephone encounter Pharmacist Pharm [facility] Comment on above: Patient Update Start: 06-24-2023 Telephone encounter Jerzy Easton MD Work Phone: [facility] [place] Comment on above: Anticoagulation Start: 06-11-2023 Telephone encounter Stas miranda MD Work Phone: [facility] [place] Comment on above: Anticoagulation Start: 06-08-2023 Telephone encounter Jenna Armenta nhof PNEUMATIC TUBE FITTER.ARCHAEOLOGY PROFESSOR Work Phone: [facility] [place] Comment on above: Erroneous encounter- disregard Anticoagulation Start: 06-05-2023 Telephone encounter Jenna Armenta nhof PNEUMATIC TUBE FITTER.ARCHAEOLOGY PROFESSOR Work Phone: [facility] [place] Comment on above: Results (Labs, Criti cleopatra ) Start: 06-04-2023 ambulatory Hortencia Winston RN NURSE O N CALL Comment on above: Results, Lab High Protime and INR Start: 06-04-2023 E-mail encounter fro m caregiver Jasmin Bell MD Work Phone: [facility] Start: 06-04-2023 Telephone encounter Jenna Armenta nhof PNEUMATIC TUBE FITTER.ARCHAEOLOGY PROFESSOR Work Phone: [facility] [place] Comment on above: Results; Orders (Lab s ) Start: 06-03-2023 Telephone encounter [facility] Comment on above: Anticoagulation Tele phone Fu (Lab INR results ) Start: 06-01-2023 End: 06-01-2023 Patient encounter procedure Stas Mora MD Work Phone: [facility] [place] Comment on above: Essential hypertensi on, benign (Primary Dx); Paroxysmal atrial fibrillation (HCC); Atherosclerosis 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, unspecified vessel or lesion type, unspecified whether [place] or transplanted heart; Hyperlipidemia, unspecified hyperlipidemia type; History of stroke with residual effects; Speech disturbance, unspecified type Start: 05-27-2023 Telephone encounter [facility] Amb[facility] Comment on above: Anticoagulation Tele phone Fu (Lab INR results ) Start: 05-20-2023 Telephone encounter [facility] Comment on above: Anticoagulation Tele phone Fu (Home INR results) Start: 05-13-2023 Telephone encounter Senai Alan [facility] Ambulatory Telemanagement Comment on above: [...] 02-20-2023 Telephone encounter Elise Paredes [facility] Comment on above: Anticoagulation Tele phone Fu (Lab INR) Start: 02-17-2023 Telephone encounter Stas miranda MD Work Phone: [facility] Comment on above: Results Start: 02-17-2023 End: 02-17-2023 Subsequent hospital visit by physician Mri Radio [facility] (I-Stat/1.5t) Work Phone: Radiology Comment on above: Cerebral infarction, unspecified mechanism (HCC) [I63.9] Start: 02-16-2023 End: 02-16-2023 Patient encounter procedure Stas Mora MD Work Phone: [facility] Comment on above: Cerebral infarction, unspecified mechanism (HCC) (Primary Dx); Generalized weakness; Speech disturbance, unspecified type; Hyperlipidemia, unspecified hyperlipidemia type; Essential hypertension, benign; Paroxysmal atrial fibrillation (HCC) Start: 02-13-2023 Telephone encounter Elise Paredes [facility] Tele[facility] Comment on above: Anticoagulation Tele phone Fu (Lab INR) Start: 02-10-2023 End: 02-10-2023 Emergency department patient visit [facility]gency Department Work Phone: Start: 02-06-2023 Telephone encounter Senia Cross [facility] Ambulatory Telemanagement Comment on above: Anticoagulation Tele phone Fu (INR Lab Result) Start: 01-19-2023 Telephone encounter [facility] Amb[facility] Tele[facility] Comment on above: Anticoagulation Tele phone Fu Start: 01-16-2023 Orders Only Stas newman MD Work Phone: [facility] Comment on above: assisted current us e [...] Emergency department patient visit STERLING LYNCH DO [facility] Start: 11-07-2022 Telephone encounter Senia Cross [...] procedure Stas Mora MD Work Phone: [facility] [place] Comment on above: Encounter for Medica re [...] Lab Result) Start: 07-04-2022 Telephone encounter Lety Stephenmanoharisrael [facility] Comment on above: Anticoagulation Tele phone Fu (Lab INR result ) Start: 06-23-2022 Refill Elvis RASHID RN.ARCHAEOLOGY PROFESSOR Work Phone: [facility] Comment on above: Refill Request Start: 06-20-2022 Telephone encounter Senia Cross [facility] Ambulatory Telemanagement Comment on above: Anticoagulation Tele phone Fu (INR Lab Result) Start: 06-06-2022 Telephone encounter Senia Phillips [facility] Ambulatory Telemanagement Comment on above: Anticoagulation Tele phone Fu (INR Lab Result) Start: 05-30-2022 Telephone encounter Stas miranda MD Work Phone: [facility] [place] Comment on above: Opened In Error Start: 05-22-2022 Telephone encounter Jenna Geovany singhof PNEUMATIC TUBE FITTER.ARCHAEOLOGY PROFESSOR Work Phone: [facility] [place] Comment on above: Results (X-ray hip) Start: 05-21-2022 End: 05-21-2022 Subsequent hospital visit by physician Jaymie [facility] [place] Work Phone: Radiology Comment on above: Left hip pain [M25.5 52] Start: 05-21-2022 ambulatory Fani Grace RN NURSE O N CALL Comment on above: Fall Fall; Hip Pain Start: 05-19-2022 Telephone encounter Stas miranda MD Work Phone: [facility] [place] Comment on above: Anticoagulation Start: 05-16-2022 Telephone [...] Lab Result) Start: 04-04-2022 Telephone encounter Elise Caitlyn Mikecem [facility] Comment on above: Anticoagulation Tele phone Fu (Lab INR) Start: 03-31-2022 Telephone encounter Stas miranda MD Work Phone: [facility] [place] Comment on above: Release Of Medical R ecords (CT PCP) Start: 03-21-2022 Telephone encounter Carmelina Cruz [facility] Comment on above: Anticoagulation Tele phone Fu Start: 02-21-2022 Telephone encounter Kristian Ferguson MD Work Phone: [facility] [place] Comment on above: Anticoagulation Start: 02-10-2022 Telephone encounter Stas miranda MD Work Phone: [facility] [place] Comment on above: Opened In Error Start: 01-27-2022 Telephone encounter [facility]ige H[facility]man [facility] Amb[facility] Comment on above: Anticoagulation Tele phone Fu (Lab INR Result) Start: 01-20-2022 Telephone encounter [facility]ige Hickman [facility] Amb[facility] Comment on above: Anticoagulation Tele phone Fu (Lab INR Result) Start: 01-17-2022 Telephone encounter Stas miranda MD Work Phone: [facility] [place] Comment on above: Anticoagulation; Cri tical Results (INR) Start: 01-13-2022 Refill Stas newman MD Work Phone: [facility] [place] Comment on above: Refill Request; Refi ll Request Start: 01-03-2022 Telephone encounter Senia Cross [facility] Ambulatory Telemanagement Comment on above: Anticoagulation Tele phone Fu (INR Home Test Result) Start: 01-02-2022 Telephone encounter Stas miranda MD Work Phone: [facility] Comment on above: Results Start: 12-26-2021 End: 12-26-2021 Patient encounter procedure Stas Mora MD Work Phone: [facility] Comment on above: Hospital discharge f ollow-up (Primary Dx); Encounter for immunization; TIA (transient ischemic attack); Thyroid nodule; Essential hypertension, benign; Paroxysmal atrial fibrillation (HCC); Atherosclerosis 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, unspecified vessel or lesion type, unspecified whether [place] or transplanted heart Start: 12-22-2021 Non-patient / Non-visit Dr. Maria E Mora Work Phone: [facility] Start: 12-21-2021 Non-patient / Non-visit Dr. Maria E Mora Work Phone: [facility] Start: 12-21-2021 End: 12-22-2021 Evaluation and management of inpatient [facility]-Progressive Care Unit Start: 12-21-2021 End: 12-22-[address] Stas Mora Work Phone: [facility] Work Phone: Start: 12-20-2021 Telephone encounter Stas miranda MD Work Phone: [facility] Comment on above: Opened In Error Anticoagulation Tele phone Fu (INR Lab Result) Start: 12-06-2021 Telephone encounter Senia Phillips [facility] Comment on above: Anticoagulation Tele phone Fu (INR Lab Result) Start: 11-22-2021 Telephone encounter Janice Huang [facility] Comment on above: Anticoagulation Tele phone Fu (INR) Start: 11-08-2021 Telephone encounter Stas miranda MD Work Phone: [facility] Comment on above: Opened In Error Anticoagulation Tele phone Fu (INR Lab Result) Start: 10-25-2021 Telephone encounter Janice Huang [facility] Comment on above: Anticoagulation Tele phone Fu (lab INR ) Start: 09-27-2021 Telephone encounter Yomi Wills [facility] Telemanagement Comment on above: Anticoagulation Tele phone Fu (Lab INR Result) Start: 09-13-2021 Orders Only Stas newman MD Work Phone: [facility] [place] Comment on above: 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 us e of anticoagulant (Primary Dx); Encounter for monitoring Coumadin therapy Anticoagulation Tele phone Fu (INR Lab Result) Start: 09-05-2021 End: 09-05-2021 Patient encounter procedure Stas Mora MD Work Phone: [facility] [place] Comment on above: Encounter for Medica re annual wellness exam (Primary Dx); Paroxysmal atrial fibrillation (HCC); Essential hypertension, benign Start: 08-30-2021 Telephone encounter Jenna Armenta molly PNEUMATIC TUBE FITTER.ARCHAEOLOGY PROFESSOR Work Phone: [facility] [place] Comment on above: Orders (INR ) Anticoagulation Tele phone Fu (INR Lab Result) Start: 08-16-2021 Orders Only Stas newman MD Work Phone: [facility] [place] Comment on above: Anticoagulation Start: 08-02-2021 Telephone encounter Senia Alan [facility] Comment on above: Anticoagulation Tele phone Fu (INR Lab Result) Start: 07-16-2021 Telephone encounter Stas miranda MD Work Phone: [facility] [place] Comment on above: Results Start: 07-13-2021 Refill Elvis RASHID RN.ARCHAEOLOGY PROFESSOR Work Phone: [facility] [place] Comment on above: Refill Request Start: 07-08-2021 End: 07-08-2021 Patient encounter procedure Stas Mora MD Work Phone: [facility] [place] Comment on above: Essential hypertensi on, benign (Primary Dx); Atherosclerosis 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, unspecified vessel or lesion type, unspecified whether [place] or transplanted heart; Paroxysmal atrial fibrillation (HCC); Primary osteoarthritis of both knees Start: 07-03-2021 Telephone encounter Stas miranda MD Work Phone: [facility] Comment on above: Anticoagulation Tele phone Fu (Lab INR result) Start: 06-12-2021 Telephone encounter [facility]anda MD [facility] Comment on above: Anticoagulation (Lab INR result) Start: 03-12-2020 End: 03-12-2020 Subsequent hospital visit by physician Xr [facility] [place] Work Phone: Radiology Comment on above: Acute right-sided lo w back pain, unspecified whether sciatica present [M54.5] Start: 02-02-2018 Ambulatory DARRELL OLIVEIRA Facility :[facility] Start: 06-02-2017 End: 06-02-2017 [facility] [place]LL [place] Procedures Date Procedure Procedure Detail Performing Clinician [...] Phone: Start: 05-23-2024 MRI 3D BRAIN QUANT Nicoal Cisneros MD Work Phone: Start: 05-23-2024 Mri brain brain stem w/o contrast material Luciana Cisneros MD Work Phone: Start: 08-14-2023 Adult depression scr eening assessment Coretta Jalloh [facility] Start: 02-17-2023 Mri brain brain stem w/o contrast material Stas Mora MD Work Phone: Start: 02-10-2023 Plain chest X-ray Start: 02-10-2023 SARS-CoV-2 & FLU Ant igen (Rapid) Start: 05-21-2022 Radex hip unilateral with pelvis 2-3 views Jenna Fitzpatrick PNEUMATIC TUBE FITTER.ARCHAEOLOGY PROFESSOR Work Phone: Start: 05-19-2022 PROTHROMBIN TIME/PT [facility] [...] Detail Author Start: 02-27-2031 Urine microalbumin profile [facility] Start: 05-26-2027 Diabetes Screening Diabetes Screenin [facility] Start: 06-02-2026 Diabetes Screening Diabetes Screenin [facility] Start: 08-15-2025 DIABETES SCREEN DIABETES SCREEN [facility] Start: 08-15-2025 Diabetes Screening Diabetes Screenin [facility] Start: 05-25-2025 Hepatitis B surface antibody level LDL Cholesterol [facility] Start: 03-30-2025 End: 03-30-2025 Patient encounter procedure 03/30/2025 11:00 AM EST Office Visit Geriatrics [address] [facility] [place] [address] Luciana Cisneros MD [address] [facility] [place] [address] follow up 6 months Geriatrics Comment on above: follow up 6 months Start: 02-21-2025 DIABETES SCREEN DIABETES SCREEN [facility] Start: 01-10-2025 Registered Referred Registered Refer [facility] [place] Start: 12-06-2024 DIABETES SCREEN DIABETES SCREEN [facility] Start: 12-05-2024 End: 12-05-2024 Patient encounter procedure 12/05/2024 12:40 PM EDT Office Visit [facility] [place] [address] [facility] [place] [place] [address] Stas Mora MD [address] [facility] [place] [address] reschedule from 12/01 [facility] Comment on above: reschedule from 12/01 Start: 12-01-2024 End: 12-01-2024 Patient encounter procedure 12/01/2024 9:40 AM EDT Office Visit [facility] [place] [address] [facility] [place] [place] [address] Stas Mora MD [address] [facility] [place] [address] 6 mo f/u [facility] Comment on above: 6 mo f/u Start: 11-26-2024 End: 02-25-2025 CBC W Auto Differential panel - Blood COMPLETE BLOOD COUNT AND DIFFERENTIAL Lab Routine Essential hypertension, benign Expected: 11/26/2024 (Approximate), Expires: 02/25/2025 [facility] Comment on above: Expected: 11/26/2024 (Approximate), Expires: 02/25/2025 Start: 11-26-2024 End: 02-25-2025 Comprehensive metabolic 2000 panel - Serum or Plasma COMPREHENSIVE METABOLIC PANEL Lab Routine Essential hypertension, benign Hyperlipidemia, unspecified hyperlipidemia type Expected: 11/26/2024 (Approximate), Expires: 02/25/2025 [facility] Work Phone: Comment on above: Expected: 11/26/2024 (Approximate), Expires: 02/25/2025 Start: 11-26-2024 End: 02-25-2025 Lipid 1996 panel - Serum or Plasma LIPID PANEL BASIC Lab Routine Essential hypertension, benign Hyperlipidemia, unspecified hyperlipidemia type Expected: 11/26/2024 (Approximate), Expires: 02/25/2025 [facility] Comment on above: Expected: 11/26/2024 (Approximate), Expires: 02/25/2025 Start: 11-25-2024 RSV Vaccine (1 - 1-d ose 60+ series) RSV Vaccine (1 - 1-dose 60+ series) [facility] Comment on above: Postponed from 08/12 (Declined at this time) Start: 11-25-2024 RSV Vaccine (1 - 1-d ose 75+ series) RSV Vaccine (1 - 1-dose 75+ series) [facility] Comment on above: Postponed from 08/12 (Declined at this time) Start: 11-23-2024 [facility] Start: 11-21-2024 Influenza vaccination Influenza Vacc ine (#1) [facility] Start: 09-06-2024 Patient discharge [facility] Start: 09-02-2024 Admission procedure [facility] Start: 09-01-2024 End: 09-02-2024 [facility] Start: 09-01-2024 Blood culture Blood Culture [facility] Start: 09-01-2024 Application of intermittent pneumatic compression device [facility] Start: 09-01-2024 Fall prevention [facility] Start: 09-01-2024 Oxygen therapy [facility] Start: 09-01-2024 Provision of activit y privileges [facility] Start: 09-01-2024 Assessment of risk o f venous thromboembolism [facility] Start: 09-01-2024 Insertion of cathete r into peripheral vein [facility] Start: 09-01-2024 Providing care accor ding to standard [facility] Start: 09-01-2024 Referral to occupati onal therapist [facility] Start: 09-01-2024 Referral to service [facility] Start: 09-01-2024 [facility] Start: 09-01-2024 Following clinical pathway protocol [facility] Start: 09-01-2024 Admission procedure [facility] Start: 09-01-2024 Hospital admission, emergency, from emergency room, medical nature [facility] Start: 08-31-2024 End: 08-31-2024 Patient encounter procedure 08/31/2024 11:00 AM EDT Office Visit Geriatrics [address] [place] [address] Luciana Cisneros MD [address] [facility] [place] [address] 3 month f/u Geriatrics Comment on above: 3 month f/u Start: 2024 Anxiety Screening Anxiety Screening [facility] Start: 2024 Depression Screening Depression Scre ening [facility] Start: 07-08-2024 DIABETES SCREEN DIABETES SCREEN [facility] Start: 06-02-2024 Hepatitis B surface antibody level LDL Cholesterol [facility] Start: 06-01-2024 End: 06-01-2024 Patient encounter procedure 06/01/2024 3:00 PM EDT Office Visit Geriatrics [address] [facility] [place] [address] Luciana Cisneros MD [address] [place] [address] Follow up visit for MRI [facility] Comment on above: Follow up visit for MRI Start: 06-01-2024 Covid-19 Vaccine ( season) Covid-19 Vaccine ( season) [facility] Start: 05-30-2024 End: 05-30-2024 Patient encounter procedure 05/30/2024 11:20 AM EDT Office Visit [facility] [place] [address] [place] [address] Luciana Cisneros MD [address] [place] [address] Follow up visit for MRI [facility] [place] Comment on above: Follow up visit for MRI Start: 05-26-2024 End: 05-26-2024 Patient encounter procedure 05/26/2024 9:20 AM EST Office Visit Family [facility] [place] [address] [facility] [place] [place] [address] Stas Mora MD [address] [facility] [place] [address] 6 mo f/u Family [facility] [place] Comment on above: 6 mo f/u Start: 05-25-2024 End: 08-24-2024 CBC W Auto Differential panel - Blood COMPLETE BLOOD COUNT AND DIFFERENTIAL Lab Routine Abnormal CBC Expected: 05/25/2024 (Approximate), Expires: 08/24/2024 [facility] Comment on above: Expected: 05/25/2024 (Approximate), Expires: 08/24/2024 Start: 05-25-2024 End: 08-24-2024 Comprehensive metabolic 2000 panel - Serum or Plasma COMPREHENSIVE METABOLIC PANEL Lab Routine Essential hypertension, benign Hyperlipidemia, unspecified hyperlipidemia type Expected: 05/25/2024 (Approximate), Expires: 08/24/2024 [facility] Work Phone: Comment on above: Expected: 05/25/2024 (Approximate), Expires: 08/24/2024 Start: 05-25-2024 End: 08-24-2024 Lipid 1996 panel - Serum or Plasma LIPID PANEL BASIC Lab Routine Essential hypertension, benign Hyperlipidemia, unspecified hyperlipidemia type Expected: 05/25/2024 (Approximate), Expires: 08/24/2024 [facility] Comment on above: Expected: 05/25/2024 (Approximate), Expires: 08/24/2024 Start: 05-25-2024 End: 05-25-2024 ambulatory 05/25/2024 8:30 AM EST Results Only [facility] [address] [facility] [place] [address] [facility] Start: 05-23-2024 End: 05-23-2024 Patient encounter procedure 05/23/2024 2:30 PM EST Appointment RADIO MRI [facility] [address] [place] [address] Cognitive impairment, mild, 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] [facility] Comment on above: Cognitive impairment , mild, 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] Start: 04-29-2024 End: 04-29-2024 Patient encounter procedure 04/29/2024 3:40 PM EST Office Visit [facility] Medicine [place] [address] [place] [address] Stas Mora MD [address] [place] [address] memory issues,See TE Family [facility] [place] Comment on above: memory issues,See TE Start: 04-27-2024 End: 04-27-2024 Patient encounter procedure 04/27/2024 9:30 AM EST Office Visit Geriatrics [address] [facility] [place] [address] Luciana Cisneros MD [address] [facility] [place] [address] Dementia, unspecified dementia severity, unspecified dementia type, unspecified whether behavioral, psychotic, or mood disturbance or anxiety (HCC) [F03.90] [facility] Comment on above: Dementia, unspecifie d dementia severity, unspecified dementia type, unspecified whether behavioral, psychotic, or mood disturbance or anxiety (HCC) [F03.90] Start: 03-23-2024 Advance Directive Discussion Advance Directive Discussion [facility] Start: 03-23-2024 Medicare Advantage A nnual Wellness Visit Medicare Advantage Annual Wellness Visit [facility] Start: 03-13-2024 DIABETES SCREEN DIABETES SCREEN [facility] Start: 11-26-2023 End: 11-26-2023 Patient encounter procedure [facility] [place] Comment on above: 6 month follow up 6 month follow up, jessica bashir, on aricept x 3 months Start: 11-22-2023 Covid-19 Vaccine ( season) Covid-19 Vaccine ( season) [facility] Start: 11-22-2023 Influenza vaccination Influenza Vacc ine (#1) [facility] Start: 09-15-2023 End: 09-15-2023 Patient encounter procedure 09/15/2023 8:40 AM EDT Office Visit Family Medicine [place] [address] [place] [address] Stas Mora MD [address] [place], [place] [id number] leg swelling- both legs--See triage 09/14/2023. [facility] [place] Comment on above: leg swelling- both l egs--See triage 09/14/2023. Start: 08-16-2023 Hepatitis B surface antibody level LDL CHOLESTEROL [facility] Start: 08-14-2023 End: 08-14-2023 Patient encounter procedure 08/14/2023 10:00 AM EDT Office Visit [facility] [place] [address] [place] [address] Stas Mora MD [address] [place], [place] [id number] Memory Issues [facility] Comment on above: Memory Issues Start: 06-04-2023 End: 09-03-2023 Ferritin [Mass/volume] in Serum or Plasma [facility] Work Phone: Comment on above: Expected: 06/04/2023 , Expires: 09/03/2023 Start: 06-04-2023 End: 09-03-2023 Iron and Iron binding capacity panel - Serum or Plasma [facility] Work Phone: Comment on above: Expected: 06/04/2023 , Expires: 09/03/2023 Start: 06-01-2023 End: 08-31-2023 CBC panel - Blood by Automated count CBC Lab Routine Paroxysmal atrial fibrillation (HCC) Essential hypertension, benign Expected: 06/01/2023 (Approximate), Expires: 08/31/2023 [facility] Work Phone: Comment on above: Expected: 06/01/2023 (Approximate), Expires: 08/31/2023 Start: 06-01-2023 End: 08-31-2023 Comprehensive metabolic 2000 panel - Serum or Plasma COMP METABOLIC PANEL Lab Routine Paroxysmal atrial fibrillation (HCC) Essential hypertension, benign Hyperlipidemia, unspecified hyperlipidemia type Expected: 06/01/2023 (Approximate), Expires: 08/31/2023 [facility] Work Phone: Comment on above: Expected: 06/01/2023 (Approximate), Expires: 08/31/2023 Start: 06-01-2023 End: 08-31-2023 Lipid 1996 panel - Serum or Plasma LIPID PANEL BASIC Lab Routine Paroxysmal atrial fibrillation (HCC) Essential hypertension, benign Hyperlipidemia, unspecified hyperlipidemia type Expected: 06/01/2023 (Approximate), Expires: 08/31/2023 [facility] Work Phone: Comment on above: Expected: 06/01/2023 (Approximate), Expires: 08/31/2023 Start: 05-13-2023 Covid-19 Vaccine () Covid-19 Vaccine () [facility] Start: 03-23-2023 Advance Directive Discussion Advance Directive Discussion [facility] Start: 03-23-2023 Behavioral Health Screening Behavioral Health Screening [facility] Start: 03-23-2023 Depression Assessment Depression Ass essment [facility] Start: 02-21-2023 Hepatitis B surface antibody level LDL CHOLESTEROL [facility] Start: 02-10-2023 [facility] Start: 12-06-2022 Hepatitis B surface antibody level LDL CHOLESTEROL [facility] Start: 11-21-2022 Covid-19 Vaccine ( season) Covid-19 Vaccine () [facility] Start: 11-21-2022 Influenza vaccination [facility] Start: 09-05-2022 PNEUMOCOCCAL: 65+ (2 - PCV) PNEUMOCOCCAL: 65+ (2 - PCV) [facility] Comment on above: Postponed from 02/21 (Declined at this time) Start: 07-08-2022 Hepatitis B surface antibody level LDL CHOLESTEROL [facility] Start: 04-26-2022 COVID-19 VACCINE (6 - Pfizer series) COVID-19 VACCINE (6 - Pfizer series) [facility] Start: 03-23-2022 ADVANCE DIRECTIVE DISCUSSION ADVANCE DIRECTIVE DISCUSSION [facility] Start: 03-23-2022 DEPRESSION ASSESSMENT DEPRESSION ASS ESSMENT [facility] Start: 03-13-2022 Hepatitis B surface antibody level LDL CHOLESTEROL [facility] Start: 03-10-2022 End: 05-10-2022 CBC panel - Blood by Automated count CBC Lab Routine TIA (transient ischemic attack) Essential hypertension, benign Atherosclerosis 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, unspecified vessel or lesion type, unspecified whether [place] or transplanted heart Expected: 03/10/2022 (Approximate), Expires: 05/10/2022 [facility] Work Phone: Comment on above: Expected: 03/10/2022 (Approximate), Expires: 05/10/2022 Start: 03-10-2022 End: 05-10-2022 Comprehensive metabolic 2000 panel - Serum or Plasma COMP METABOLIC PANEL Lab Routine TIA (transient ischemic attack) Essential hypertension, benign Atherosclerosis 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, unspecified vessel or lesion type, unspecified whether [place] or transplanted heart Expected: 03/10/2022 (Approximate), Expires: 05/10/2022 [facility] Work Phone: Comment on above: Expected: 03/10/2022 (Approximate), Expires: 05/10/2022 Start: 03-10-2022 End: 05-10-2022 Lipid 1996 panel - Serum or Plasma LIPID PANEL BASIC Lab Routine TIA (transient ischemic attack) Essential hypertension, benign Atherosclerosis 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, unspecified vessel or lesion type, unspecified whether [place] or transplanted heart Expected: 03/10/2022 (Approximate), Expires: 05/10/2022 [facility] Work Phone: Comment on above: Expected: 03/10/2022 (Approximate), Expires: 05/10/2022 Start: 01-03-2022 End: 03-05-2022 Comprehensive metabolic 2000 panel - Serum or Plasma COMP METABOLIC PANEL Lab Routine Atherosclerosis 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, unspecified vessel or lesion type, unspecified whether [place] or transplanted heart Essential hypertension, benign Expected: 01/03/2022 (Approximate), Expires: 03/05/2022 [facility] Work Phone: Comment on above: Expected: 01/03/2022 (Approximate), Expires: 03/05/2022 Start: 01-03-2022 End: 03-05-2022 LIPID PANEL BASIC LIPID PANEL BASIC Lab Routine Atherosclerosis 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, unspecified vessel or lesion type, unspecified whether [place] or transplanted heart Essential hypertension, benign Expected: 01/03/2022 (Approximate), Expires: 03/05/2022 [facility] Work Phone: Comment on above: Expected: 01/03/2022 (Approximate), Expires: 03/05/2022 Start: 12-24-2021 Prothrombin time [facility] Work Phone: Start: 12-23-2021 Prothrombin time [facility] Work Phone: Start: 12-22-2021 Patient discharge [facility] Work Phone: Start: 12-21-2021 Assessment of risk o f venous thromboembolism [facility] Work Phone: Start: 12-21-[address] [facility] Work Phone: Start: 12-21-2021 Catheterization of vein [facility] Work Phone: Start: 12-21-2021 Continuous pulse oximetry [facility] Work Phone: Start: 12-21-2021 Elevation of head of bed [facility] Work Phone: Start: 12-21-2021 Exercises [facility] Work Phone: Start: 12-21-[address] anned interventions [facility] Work Phone: Start: 12-21-2021 Insertion of cathete r into peripheral vein [facility] Work Phone: Start: 12-21-2021 Measuring intake and output [facility] Work Phone: Start: 12-21-2021 Notification of physician [facility] Work Phone: Start: 12-21-2021 Oxygen therapy [facility] Work Phone: Start: 12-21-2021 Providing care accor ding to standard [facility] Work Phone: Start: 12-21-2021 Provision of activit y privileges [facility] Work Phone: Start: 12-21-2021 Referral to occupati onal therapist [facility] Work Phone: Start: 12-21-2021 Referral to service [facility] Work Phone: Start: 12-21-2021 Tobacco use cessatio n education [facility] Work Phone: Start: 12-21-2021 US scan of thyroid Thyroid [facility] Work Phone: Start: 12-21-2021 [facility] Work Phone: Start: 12-21-2021 End: 12-21-2021 Following clinical pathway protocol [facility] Work Phone: Start: 12-21-2021 Verification routine [facility] Work Phone: Start: 12-21-2021 Admission procedure [facility] Work Phone: Start: 12-21-2021 CT of head without contrast STROKE Brain/Head without Cont [facility] Work Phone: Start: 12-21-2021 CT Unspecified body region WO contrast [facility] Work Phone: Start: 12-21-2021 Oxygen therapy [facility] Work Phone: Start: 12-21-2021 End: 12-22-2021 [facility] Work Phone: Start: 11-21-2021 Influenza vaccination INFLUENZA (#1) [facility] Start: 09-24-2021 COVID-19 VACCINE (5 - Booster for Pfizer series) COVID-19 VACCINE (5 - Booster for Pfizer series) [facility] Start: 08-30-2021 End: 10-30-2021 PT panel - Platelet poor plasma by Coagulation assay [facility] Work Phone: Comment on above: Expected: 08/30/2021 , Expires: 10/30/2021 Start: 07-08-2021 End: 09-07-2021 Comprehensive metabolic 2000 panel - Serum or Plasma [facility] Work Phone: Comment on above: Expected: 07/08/2021 (Approximate), Expires: 09/07/2021 Start: 07-08-2021 End: 09-07-2021 LIPID PANEL BASIC [facility] Work Phone: Comment on above: Expected: 07/08/2021 (Approximate), Expires: 09/07/2021 Start: 04-27-2021 COVID-19 VACCINE (4 - Booster for Pfizer series) COVID-19 VACCINE (4 - Booster for Pfizer series) [facility] Start: 03-23-2021 ADVANCE DIRECTIVE DISCUSSION ADVANCE DIRECTIVE DISCUSSION [facility] Start: 03-23-2021 DEPRESSION ASSESSMENT DEPRESSION ASS ESSMENT [facility] Start: 02-21-2009 Pneumococcal Vaccine : 65+ (2 - PCV) Pneumococcal Vaccine: 65+ (2 - PCV) [facility] Start: 02-21-2009 PNEUMOCOCCAL: 65+ (2 - PCV) PNEUMOCOCCAL: 65+ (2 - PCV) [facility] Start: 02-23-2008 Urine microalbumin profile DTAP,TDAP,TD (1 - Tdap) [facility] Start: 1995 RSV Vaccine (1 - 1-d ose 60+ series) RSV Vaccine (1 - 1-dose 60+ series) [facility] Start: 08-12-1985 SHINGRIX VACCINE (1 of 2) VALDES GRIX VACCINE (1 of 2) [facility] Anion gap in Serum o r Plasma [facility] BUN/Creatinine ratio [facility] Calcium [Mass/volume ] in Serum or Plasma [facility] Carbon dioxide, tota l [Moles/volume] in Central venous blood [facility] Creatinine [Mass/vol ume] in Serum or Plasma [facility] Glucose [Mass/volume ] in Serum or Plasma [facility] Hemoglobin.gastroint estin al.lower [Presence] in Stool by Immunoassay FECAL OCCULT BLOOD TEST Lab Routine Abnormal CBC 06/04/2023 2:13 PM EDT [facility] [place] Work Phone: INR in Blood by Coagulation assay [facility] Measurement of renal function [facility] End: 05-27-2025 MR Brain WO contrast MRI BRAIN W QUANT WO IVCON Radiology Routine Cognitive impairment, mild, so stated 1 Occurrences starting 04/27/2024 until 05/27/2025 [facility] [place] Work Phone: Comment on above: 1 Occurrences starti ng 04/27/2024 until 05/27/2025 End: 05-27-2025 MR Unspecified body region 3D post processing MRI 3D BRAIN QUANT Radiology Routine Cognitive impairment, mild, so stated 1 Occurrences starting 04/27/2024 until 05/27/2025 [facility] Comment on above: 1 Occurrences starti ng 04/27/2024 until 05/27/2025 End: 03-17-2024 Mri brain brain stem w/o contrast material MRI BRAIN WO IVCON Radiology STAT Cerebral infarction, unspecified mechanism (HCC) 1 Occurrences starting 02/16/2023 until 03/17/2024 [facility] [place] Work Phone: Comment on above: 1 Occurrences starti ng 02/16/2023 until 03/17/2024 Mri brain brain stem w/o contrast material MRI BRAIN WO IVCON Radiology STAT Cerebral infarction, unspecified mechanism (HCC) 02/17/2023 8:13 AM EST [facility] [place] Work Phone: Patient Education ED Weakness (U ncertain Cause) [facility] Work Phone: Patient referral [facility] Work Phone: Potassium measurement [facility] Prothrombin time [facility] End: 09-13-2022 PT panel - Platelet poor plasma by Coagulation assay PROTHROMBIN TIME/PT Lab Routine 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 Encounter for monitoring Coumadin therapy Once per week for 99 Occurrences starting 09/13/2021 until 09/13/2022 [facility] [place] Work Phone: Comment on above: Once per week for 99 Occurrences starting 09/13/2021 until 09/13/2022 PT panel - Platelet poor plasma by Coagulation assay PROTHROMBIN TIME/PT Lab Routine assisted current use of anticoagulant Encounter for monitoring Coumadin therapy 09/13/2021 8:42 AM EDT [facility] [place] Work Phone: End: 01-16-2024 PT panel - Platelet poor plasma by Coagulation assay PROTHROMBIN TIME/PT Lab Routine 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 Paroxysmal atrial fibrillation (HCC) Once per week for 99 Occurrences starting 01/16/2023 until 01/16/2024 [facility] [place] Work Phone: Comment on above: Once per week for 99 Occurrences starting 01/16/2023 until 01/16/2024 End: 12-23-2024 PT panel - Platelet poor plasma by Coagulation assay PROTHROMBIN TIME Lab STAT 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 24 Occurrences starting 12/24/2023 until 12/23/2024 [facility] [place] Work Phone: Comment on above: 24 Occurrences start ing 12/24/2023 until 12/23/2024 Serum chloride measurement [facility] Sodium measurement [facility] Urea nitrogen [Mass/volume] in Serum or Plasma [facility] End: 01-25-2023 Us soft tissue head & neck real time imge docm US THYROID/PARATHYROID Radiology Routine Thyroid nodule 1 Occurrences starting 12/26/2021 until 01/25/2023 [facility] [place] Work Phone: Comment on above: 1 Occurrences starti ng 12/26/2021 until 01/25/2023 [facility] Immunizations Immunization Date Immunization Notes Care Provider Rich vargas 12-03-2023 influenza virus vacc ine, unspecified formulation Stas Mora MD Work Phone: [facility] 01-10-2023 influenza (HD-IIV4) vaccine, age 65+ yr, high dose, quadrivalent, PF (FLUZONE HIGH-DOSE) Coretta Jalloh [facility] 01-10-2023 influenza virus vacc ine, unspecified formulation Coretta Jalloh [facility] 12-26-2021 influenza, high-dose , quadrivalent vaccine (FLUZONE HIGH DOSE QUADRIVALENT) Stas Mora MD Work Phone: [facility] 12-26-2021 influenza virus vacc ine, unspecified formulation Senia Phillips [facility] 02-27-2021 tetanus toxoid, redu natividad diphtheria toxoid, and acellular pertussis vaccine, adsorbed Stas Mora MD Work Phone: [facility] 02-27-2021 zoster vaccine recombinant Stas Mora MD Work Phone: [facility] 12-25-2020 Covid (Pfizer) Dr. Stas gonzales Work Phone: [facility] 12-10-2020 influenza (HD-IIV4) vaccine, age 65+ yr, high dose, quadrivalent, PF (FLUZONE HIGH-DOSE) Coretta Jalloh [facility] 12-10-2020 influenza, high dose seasonal, preservative-free Stas Mora MD Work Phone: [facility] 09-17-2020 zoster vaccine recombinant Stas Mora MD Work Phone: [facility] 05-09-2020 Covid (Pfizer) Dr. Stas gonzales Work Phone: [facility] 04-18-2020 Covid (Pfizer) Dr. Stas gonzales Work Phone: [facility] 12-24-2016 influenza, high dose seasonal, preservative-free Stas Mora MD Work Phone: [facility] 12-22-2015 Influenza virus vaccine [facility] 12-22-2015 influenza, seasonal, injectable, preservative free Stas Mora MD Work Phone: [facility] Work Phone: 01-30-2014 influenza, high dose seasonal, preservative-free Stas Mora MD Work Phone: [facility] Work Phone: 01-24-2013 influenza virus vacc ine, unspecified formulation Stas Mora MD Work Phone: [facility] 02-22-2008 pneumococcal polysaccharide vaccine, 23 valent Stas Mora MD Work Phone: [facility] Work Phone: 02-22-2008 tetanus and diphther ia toxoids, adsorbed, preservative free, for adult use (2 Lf of tetanus toxoid and 2 Lf of diphtheria toxoid) Stas Mora MD Work Phone: [facility] Work Phone: Payers Date Payer Category Payer Self-pay [id number] 2022 Unknown [id number] 2016 Medicare [employer] [place] [id number] 2016-Present [phone] [address] [place] [address] O [id number] 2016 Medicare [employer] [place] [id number] 2016-Present [phone] [address] [place] [address] HMO [id number] 2016 Medicare (Managed Care) [place] MEDIC ARE [id number] 2016 Medicare [id number] 1935 Unknown [id number]. 2.627 1935 Unknown [id number] 2.16.840.1.098635.3.579. 2.627 Unknown VA AUTH REQUIR ED SEE NOTE [id number] Unknown VA AUTH REQUIR ED SEE NOTE . [id number] Unknown [id number] 2.16840.1.170150.3.579. 2.462 Unknown [id number] 2.840.1.010815.3.579. 2.462 Unknown [id number] 2.840.1.893416.3.579. 2.462 Unknown [id number] 2.840.1.921924.3.579. 2.462 Unknown [id number] 2.840.1.055657.3.579. 2.462 Unknown [id number] 2.840.1.230050.3.579. 2.462 Unknown [id number] 2.840.1.245647.3.579. 2.462 Unknown [id number] 2.840.1.781421.3.579. 2.462 Unknown [id number] 2.840.1.221222.3.579. 2.462 Unknown [id number] 2.840.1.460333.3.579. 2.462 Unknown [id number] 2.840.1.662374.3.579. 2.462 Unknown [id number] 2.16840.1.295916.3.579. 2.462 Unknown [id number] 2.16840.1.071762.3.579. 2.462 Unknown [id number] 2.840.1.858720.3.579. 2.462 Unknown [id number] 2.840.1.885284.3.579. 2.462 Unknown [id number] 2.16.840.1.834565.3.579. 2.462 Unknown [id number] 2.16.840.1.647409.3.579. 2.462 Unknown [id number] 2.16.840.1.996688.3.579. 2.462 Unknown [id number] 2.16.840.1.204189.3.579. 2.462 Unknown [id number] 2.16.840.1.806753.3.579. 2.462 Unknown [id number] 2.16.840.1.946453.3.579. 2.462 Unknown [id number] 2.16.840.1.998574.3.579. 2.462 Unknown [id number] 2.16840.1.627216.3.579. 2.462 Unknown [id number] 2.840.1.352163.3.579. 2.462 Unknown [id number] 2.16840.1.947778.3.579. 2.462 Unknown [id number] 2.16.840.1.508851.3.579. 2.462 Unknown [id number] 2.16.840.1.116309.3.579. 2.462 Unknown [id number] 2.16840.1.725763.3.579. 2.462 Unknown [id number] 2.16.840.1.762805.3.579. 2.462 Unknown [id number] 2.16840.1.707916.3.579. 2.462 Unknown [id number] 2.16.840.1.834720.3.579. 2.462 Unknown [id number] 2.16.840.1.272881.3.579. 2.462 Unknown [id number] 2.16.840.1.191131.3.579. 2.462 Unknown [id number] 2.16.840.1.976167.3.579. 2.462 Unknown [id number] 2.16.840.1.096334.3.579. 2.462 Unknown [id number] 2.16.840.1.703063.3.579. 2.462 Unknown [id number] 2.16.840.1.787135.3.579. 2.462 Social History Date Type Detail Facility Start: 05-04-2017 End: 01-06-2025 Tobacco smoking status NHIS Ex-smoker [facility] Start: 02-15-2021 End: 07-28-2024 Alcohol intake Current non-drinker of alcohol (finding) [facility] Start: 08-26-2020 End: 08-29-2021 History SDOH Alcohol Frequency 2 [facility] Start: 08-26-2020 End: 08-29-2021 History SDOH Alcohol Std Drinks 1 [facility] Start: 08-26-2020 End: 08-29-2021 History SDOH Social Connections Jehovah'[employer] Witness 3 [facility] Start: 08-26-2020 End: 08-29-2021 History SDOH Social Connections Living 5 [facility] Start: 08-26-2020 History SDOH Physical Activity MPS 6 [facility] Start: 08-26-2020 Education 12 [facility] Start: 1935 Sex Assigned At Male [facility] Start: 02-11-2020 End: 12-26-2021 Exposure to SARS-CoV-2 (event) Not sure [facility] History of tobacco use Current smoker [facility] Start: 05-04-2017 End: 12-26-2021 Tobacco use and exposure Smokeless tobacco non-user [facility] Start: 12-21-2021 End: 02-10-2023 Tobacco smoking status INIS Unknown if ever smoked [facility] Start: 12-22-2021 Non-smoker [facility] Start: 12-26-2021 Tobacco Comment 30 yaers ago [facility] Start: 02-28-2020 End: 08-29-2021 History of Social function [facility] Start: 02-28-2020 End: 08-29-2021 Social connection and isolation panel [facility] Do you belong to any clubs or organizations such as moravian groups, unions, fraternal or athletic groups, or school groups? No [facility] Are you now , , , , never or living with a partner? [facility] How often to you hav e a drink containing alcohol? Monthly or less [facility] How many standard dr inks containing alcohol do you have on a typical day? 1 or 2 [facility] How often do you hav e 6 or more drinks on 1 occasion? Never [facility] How hard is it for y ou to pay for the very basics like food, housing, medical care, and heating Not hard at all [facility] Do you feel stress - tense, restless, nervous, or anxious, or unable to sleep at night because your mind is troubled all the time - these days [OSQ] Not at all [facility] (I/We) worried velvet er (my/our) food would run out before (I/we) got money to buy more. Never true [facility] Start: 08-26-2020 Gender identity Identifies as male gender (finding) [facility] Start: 08-26-2020 Sexual orientation Heterosexual (finding) [facility] Sex Assigned At Sex [facility] Are you now , , , , never or living with a partner? [facility] How often to you hav e a drink containing alcohol? 2-4 times a month [facility] Goals Date Patient Goal Desired Activity /State Functional Status Date Assessment Result Facility 09-06-2024 Functional status Ambulates [facility] Work Phone: 07-26-2024 Total score [AUDIT-C] 1 07/27/19 6:26 PM EDT User, Olena [facility] 07-26-2024 Within the last year , have you been humiliated or emotionally abused in other ways by your partner or ex-partner? No 07/26/2024 6:26 PM EDT User, Olena [facility] 07-26-2024 Within the last year , have you been afraid of your partner or ex-partner? No 07/26/2024 6:26 PM EDT User, Olena [facility] 07-26-2024 Within the last year , have you been raped or forced to have any kind of sexual activity by your partner or ex-partner? No 07/26/2024 6:26 PM EDT User, Mychart No [facility] 07-26-2024 Within the last year , have you been kicked, hit, slapped, or otherwise physically hurt by your partner or ex-partner? No 07/26/2024 6:26 PM EDT User, Mychart No [facility] 07-26-2024 How often to you hav e a drink containing alcohol? Monthly or less 07/26/2024 6:26 PM EDT User, Mychart Monthly or less [facility] 07-26-[address] inks containing alcohol do you have on a typical day? 1 or 2 07/26/2024 6:26 PM EDT User, Mychart 1 or 2 [facility] 07-26-2024 How often do you hav e 6 or more drinks on 1 occasion? Never 07/26/2024 6:26 PM EDT User, Mychart Never [facility] 11-17-2022 Functional Status Up ad t[facility] 11-17-2022 Functional Status Identified as high risk, Fall ID band on, Room located near nursing station [facility] 12-22-2021 Functional status Ambulates;Chair [facility] Work Phone: 07-02-2016 Are you deaf, or do you have serious difficulty hearing No 07/02/2016 2:52 PM EDT Anita Zhang, DO No [facility] Work Phone: 07-02-2016 Are you blind, or do you have serious difficulty seeing, even when wearing glasses No 07/02/2016 2:52 PM JOYT Anita Zhang, DO No [facility] 07-02-2016 Do you have serious difficulty walking or climbing stairs No 07/02/2016 2:52 PM JOYT Anita Zhang, DO No [facility] 07-02-2016 Do you have difficul ty dressing or bathing No 07/02/2016 2:52 PM JOYT Anita Zhang, DO No [facility] 07-02-2016 Because of a physica l, mental, or emotional condition, do you have difficulty doing errands alone such as visiting a physician's office or shopping No 07/02/2016 2:52 PM EDT Anita Zhang DO No [facility] Mental Status Date Assessment Result Facility 09-06-2024 Cognitive function Voice/Name [facility] Work Phone: 09-05-2024 Cognitive function Appropriate;Cooperativ e [facility] Work Phone: 02-10-2023 Cognitive function Level Of Cons ciousness Awake;Alert;Appropriate;Fol lows Commands [facility] Work Phone: 11-17-2022 Mental Status Orientation Oriented x 4 [facility] 11-17-2022 Mental Status [facility] 12-22-2021 Cognitive function Voice/Name [facility] Work Phone: 12-21-2021 Cognitive function Voice/Name [facility] Work Phone: 07-02-2016 Because of a physica l, mental, or emotional condition, do you have serious difficulty concentrating, remembering, or making decisions No 07/02/2016 2:52 PM EDT Anita Zhang, No [facility] Clinical Notes 03-12-2020 to 09-21-2024 Telephone Encounter - Petty Vargas - 09/21/2024 9:21 AM EDTTelephone Encounter - Petty Vargas - 09/21/2024 9:21 AM EDT Note Date & Type Note Facility 09-21-2024 Telephone encounter Note Form atting of this note might be different from the original. [facility]. Maria Guadalupe states that he has been in there for two weeks. Please advise [facility] 09-21-2024 Miscellaneous Notes Formattin g of this note might be different from the original. [facility] Maria Guadalupe states that he has been in there for two weeks. Please advise documented in this encounter [facility] 09-06-2024 Consult note [facility] 09-06-2024 Consult note Note Date/Time September 06, 2024 4:37pm [facility] Medical Records Department [address] [place] [address] Counseling Note - Pharmacy 09/06/24 1143 MR#: [id number] Acct: [id number] Name: ROBY FLORES Rep #:[id number] : 1935 89 From: Isabelle Summers PCP: Dr. Stas Mora MD Status:AD M IN Y Location: [place] [address] Pharmacy MD Med Reconciliation Pharmacy Service has [...] Signature (if applicable): Date CC: ~ Signed [facility] Work Phone: 1(273) 611-528006-17-2025 Discharge summary Author Navid Dominguez [facility] Note Date/Time September 06, 2024 11:1 4am [facility] Medical Records Department [address] [place] [address] Discharge Summary 09/06/24 1109 MR#: [id number] Acct: [id number] Name: ROBY FLORES Rep #:[id number] : 1935 89 From: Navid Trejo PCP: Dr. Stas Mora MD Status:AD M IN Location: [place] [address] Providers Date of Admission: 09/02/24 Date of [...] [facility] the [facility] 09/06: INR 2.4. Hold warfarin today [...] The daughter is the healthcare power of training director. #History of dementia: On rivastigmine #Dyslipidemia: On [...] (Auto) 66.8, Lymph % (Auto) 16.4 L, Swain % (Auto) 9.1, Eos % (Auto) 6.3 [...] in before D/C Order can be placed): [facility] Facility Charges/Coding Visit Charges Inpatient E&M: 78311 Disch Hosp >30min 09/06/24 1114 <Electronically signed by Navid Dominguez MD> Cosigner Signature (if applicable): CC: Dr. Stas Mora MD; Dr. Navid Dominguez MD~ Signed [facility] Work Phone: 1(847) 248-222306-17-2025 Discharge summary Author Navid Dominguez [facility] Note Date/Time September 06, 2024 11:0 9am [facility] Medical Records Department [address] [place] [address] Transfer to Extended Care MR#: [id number] Acct: [id number] Name: ROBY FLORES Rep #:[id number] : 1935 89 From: Navid Trejo PCP: Dr. Stas Mora MD Status:AD M IN Certification of patient admission REQUIRED AT TIME OF ADMISSION. I CERTIFY THAT POST-HOSPITAL ECF SERVICES ARE REQUIRED TO BE GIVEN ON AN IN-PATIENT BASIS BECAUSE OF THE ABOVE NAMED PATIENT'S NEED FOR FDC CARE ON A CONTINUING BASIS FOR THE [...] explained to the patient and [facility] # Fever * Patient developed a [...] The daughter is the healthcare power of training director. #History of dementia: On rivastigmine #Dyslipidemia: On [...] liberalized regular diet with consistency/texture as per BOWLING ALLEY MANAGER. Will continue 120mL ensure plus HP 4 [...] in before D/C Order can be placed): [facility] Facility 09/06/24 1109 <Electronically signed by Navid oDminguez MD> Cosigner Signature (if applicable): CC: Dr. Stas Mora MD; Dr. Kathy Wells MD ~ [facility] Work Phone: 1(218) 943-712406-17-2025 Discharge summary [facility] Medical Records Department [address] [place] [address] Discharge Summary 09/06/24 1109 MR#: [id number] Acct: [id number] Name: ROBY FLORES Rep #:[id number] : 1935 89 From: Navid Trejo PCP: Dr. Stas Mora MD Status:[facility] Location: [address] Providers Date of Admission: 09/02/24 Date [...] explained to the [facility] and [facility] 09/06: INR 2.4. Hold warfarin today [...] The daughter is the healthcare power of training director. #History of dementia: On rivastigmine #Dyslipidemia: On [...] (Auto) 66.8, Lymph % (Auto) 16.4 L, Swain % (Auto) 9.1, Eos % (Auto) 6.3 [...] in before D/C Order can be placed): [facility] Facility Charges/Coding Visit Charges Inpatient E&M: 79464 Disch Hosp >30min 09/06/24 1114 Cosigner Signature (if applicable): CC: Dr. Stas Mora MD; Dr. Navid Dominguez MD~ Signed [facility]06-17-2025 Discharge summary [facility] Medical Records Department [address] [place] [address] Transfer to [facility] MR#: [id number] Acct: [id number] Name: ROBY FLORES Rep #:[id number] : 1935 89 From: Navid Trejo PCP: Dr. Stas Mora MD Status:AD M IN Certification of patient admission REQUIRED AT TIME OF ADMISSION. I CERTIFY THAT POST-HOSPITAL [facility] SERVICES ARE REQUIRED TO BE GIVEN ON AN IN-PATIENT BASIS BECAUSE OF THE ABOVE NAMED PATIENT'S NEED FOR FDC CARE ON A CONTINUING BASIS FOR THE CONDITION(S) FOR WHICH HE/SHE WAS RECEIVING IN-PATIENT HOSPITAL SERVICES PRIOR TO HIS/HER TRANSFER TO THE [facility]. 09/06/24 1109 Diet Diet Order/Speech [...] explained to the [facility] # Fever * Patient developed a [...] The daughter is the healthcare power of training director. #History of dementia: On rivastigmine #Dyslipidemia: On [...] liberalized regular diet with consistency/texture as per BOWLING ALLEY MANAGER. Will continue 120mL ensure plus HP 4 [...] in before D/C Order can be placed): [facility] Facility 09/06/24 1109 Cosigner Signature (if applicable): CC: Dr. Stas Mora MD; Dr. Kathy Wells MD ~ [facility]06-17-2025 [facility] Medical Records Department [address] [place] [address] Discharge Summary 09/06/24 1109 MR#: [id number] Acct: [id number] Name: ROBY FLORES Radha Rep #: [id number] : 1935 89 From: Navid Dominguez MD PCP: Dr. Stas Mora MD Status:ADM IN Location: [facility] JI496-4 Providers Date of Admission: 09/02/24 Date of [...] The daughter is the healthcare power of training director. #History of dementia: On rivastigmine #Dyslipidemia: On [...] / Lab / Microbiol (more content not included)...[facility] 09-05-2024 Progress note Author Navid Dominguez [facility] Note Date/Time September 05, 2024 4:15 pm [facility] Medical Records Department [address] [place] [address] Progress Note - Hospitalist 09/05/24 1608 MR#: [id number] Acct: [id number] Name: ROBY FLORES Rep #:[id number] : 1935 89 From: Navid Trejo PCP: Dr. Stas Mora MD Status:AD IN Location: [address] Reason for Visit Reason for Visit: [...] Clarity Clear, Urine pH 7.0, Ur Specific [address] 1.005, Urine Protein 15 H, Urine Glucose [...] 77.2 H, Lymph % (Auto) 9.8 L, Swain % (Auto) 7.9, Eos % (Auto) 4.0, [...] [facility] # Fever * Patient developed a [...] The daughter is the healthcare power of training director. #History of dementia: On rivastigmine #Dyslipidemia: On statin #Benign essential hypertension: On lisinopril. DVT prophylaxis: * Resume Coumadin today. INR 1.8. Daughter still thinking about that she wants him to continue otherwise. Code status: DNRCCA no intubation * Disposition: Awaiting placement. PT OT on board. Charges/Coding Visit Charges Inpatient E&M: 76872 Subs Hosp L2 09/05/24 1615 <Electronically signed by Navid Dominguez MD> Cosigner Signature (if applicable): CC: ~ Signed [facility] Work Phone: 1(234) 597-817906-16-2025 Progress note [facility] Medical Records Department [address] [place] [address] Progress Note - Hospitalist 09/05/24 1608 MR#: [id number] Acct: [id number] Name: ROBY FLORES Rep #:[id number] : 1935 89 From: Navid Trejo PCP: Dr. Stas Mora MD Status:AD M IN Location: [place] [address] Reason for Visit Reason for Visit: Diagnoses [...] Clarity Clear, Urine pH 7.0, Ur Specific [place] 1.005, Urine Protein 15 H, Urine Glucose [...] 77.2 H, Lymph % (Auto) 9.8 L, Swain % (Auto) 7.9, Eos % (Auto) 4.0, [...] explained to the [facility] # Fever * Patient developed a [...] The daughter is the healthcare power of training director. #History of dementia: On rivastigmine #Dyslipidemia: On statin #Benign essential hypertension: On lisinopril. DVT prophylaxis: * Resume Coumadin today. INR 1.8. Daughter still thinking about that she wants him to continue otherwise. Code status: DNRCCA no intubation * Disposition: Awaiting placement. PT OT on board. Charges/Coding Visit Charges Inpatient E&M: 36740 Subs Hosp L2 09/05/24 1615 Cosigner Signature (if applicable): CC: ~ Signed [facility]06-15-2025 Progress note Author Kathy Wells [facility] Note Date/Time September 04, 2024 3:37 pm [facility] Medical Records Department [address] [place] [address] Progress Note 09/04/24 1412 MR#: [id number] Acct: [id number] Name: ROBY FLORES Rep #:[id number] : 1935 89 From: Kathy Wells MD PCP: Dr. Stas Mora MD Status:AD M IN Location: [place] [address] Subjective Subjective Patient seen and examined. He [...] 78.0 H, Lymph % (Auto) 7.8 L, Swain % (Auto) 7.7, Eos % (Auto) 5.3 [...] The daughter is the healthcare power of training director. * In light of patient's confusion in [...] on board. Charges/Coding Visit Charges Inpatient E&M: 44264 Subs Hosp L2 09/04/24 1537 <Electronically signed by Kathy Wells MD> Kathy Wells MD Cosigner Signature (if applicable): CC: ~ Signed [facility] Work Phone: 1(943) 287-573306-15-2025 Progress note [facility] Medical Records Department [address] [place] [address] Progress Note 09/04/24 1412 MR#: [id number] Acct: [id number] Name: ROBY FLORES Rep #:[id number] : 1935 89 From: Kathy Wells MD PCP: Dr. Stas Mora MD Status:AD M IN Location: [place] [address] Subjective Subjective Patient seen and examined. He [...] 78.0 H, Lymph % (Auto) 7.8 L, Swain % (Auto) 7.7, Eos % (Auto) 5.3 [...] The daughter is the healthcare power of training director. * In light of patient's confusion in [...] on board. Charges/Coding Visit Charges Inpatient E&M: 40503 Subs Hosp L2 09/04/24 1537 Kathy Wells MD Cosigner Signature (if applicable): CC: ~ Signed [facility]06-14-2025 Progress note Author [facility] Note Date/Time September 03, 2024 6:29 pm [facility] Medical Records Department [address] [place] [address] Progress Note 09/03/24 1135 MR#: [id number] Acct: [id number] Name: ROBY FLORES Rep #:[id number] : 1935 89 From: Kathy Wells MD PCP: Dr. Stas Mora MD Status:AD M IN Location: [place] [address] Subjective Subjective Patient seen and examined. He [...] 83.4 H, Lymph % (Auto) 6.7 L, Swain % (Auto) 6.0, Eos % (Auto) 2.8, [...] The daughter is the healthcare power of training director. * In light of patient's confusion in [...] on board. Charges/Coding Visit Charges Inpatient E&M: 85684 Subs Hosp L2 09/03/24 2672 <Electronically signed by Kathy Wells MD> Kathy Wells MD Cosigner Signature (if applicable): CC: ~ Signed [facility] Work Phone: 1(783) 928-803806-14-2025 Progress note [facility] Medical Records Department [address] [place] [address] Progress Note 09/03/24 1135 MR#: [id number] Acct: [id number] Name: ROBY FLORES Rep #:[id number] : 1935 89 From: Kathy Wells MD PCP: Dr. Stas Mora MD Status:AD M IN Location: [place] [address] Subjective Subjective Patient seen and examined. He [...] 83.4 H, Lymph % (Auto) 6.7 L, Swain % (Auto) 6.0, Eos % (Auto) 2.8, [...] The daughter is the healthcare power of training director. * In light of patient's confusion in [...] on board. Charges/Coding Visit Charges Inpatient E&M: 07416 Subs Hosp L2 09/03/24 1829 Kathy Wells MD Cosigner Signature (if applicable): CC: ~ Signed [facility]06-14-2025 Consult note Author Spike De La Cruz [facility] Note Date/Time September 03, 2024 3:49 pm [facility] Medical Records Department [address] [place] [address] Pharmacokinetic/Renal -Consult 09/03/24 1548 MR#: [id number] Acct: [id number] Name: ROBY FLORES Rep #:[id number] : 1935 89 From: Spike [facility] PCP: Dr. Stas Mora MD Status:AD M IN Location: [facility] LB590-2 Consult Antibiotic Management Pharmacy has been consulted [...] <Electronically signed by Spike Angelo [facility]> Date _ Spike De La Cruz [facility] Cosigner Signature (if applicable): Date CC: ~ Signed [facility] Work Phone: 1(462) 810-182706-14-2025 Consult note [facility] Medical Records Department [address] [place] [address] Pharmacokinetic/Renal -Consult 09/03/24 1548 MR#: [id number] Acct: [id number] Name: ROBY FLORES Rep #:[id number] : 1935 89 From: Spike mckay [facility] PCP: Dr. Stas Mora MD Status:AD M IN Location: [place] FP851-4 Consult Antibiotic Management Pharmacy has been consulted [...] Vancomycin (09/04/24 at 2130) 09/03/24 1549 ering [facility]> Date _ Spike De La Cruz [facility] Cosigner Signature (if applicable): Date CC: ~ Signed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 Parmjit Covarrubias, Marriage Performer (finish repair worker) Pharmacy Anticoagulation Clinic [facility]09-[facility] Telephone encounter Note* Telephone Encounter - Elise Paredes [facility] - 11/26/2023 4:21 PM EDT [facility] Anticoagulation Clinic Anticoagulation Episode Summary Anticoagulation Care Providers Provider Role Specialty Phone number Stas Mora MD Referring Family Medicine [phone] Roby Flores is a 88 year old [...] call PAC to discuss further Elise Paredes RP Clinical Pharmacist, Pharmacy Anticoagulation Clinic Pharmacy Anticoagulation Clinic Pager: [phone]. [facility]09-05-2024 History of Present illness Narrative* Stas [...] Coronary atherosclerosis of unspecified type of vessel, [place] or graft Comment: Coronary artery disease No [...] Histories independently gathered by the clinical it support analyst and the remaining scribed note accurately describes [...] AM. Rosie Cruz MA documented in this encounterWood County Hospital08-28-2024 Telephone encounter Note * Telephone Encounter - Yeimi Coretta, [facility] - 11/18/2023 4:30 PM EDT [facility] Anticoagulation Clinic Anticoagulation Episode Summary Anticoagulation Care Providers Provider Role Specialty Phone number Stas Mora MD Referring Family Medicine [phone] Roby Flores is a 88 year old [...] ALLERGIES No Known Allergies Indication for Warfarin: 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 Paroxysmal atrial fibrillation [...] Pharmacy Anticoagulation Clinic Pharmacy Anticoagulation Clinic Pager: [phone]. [facility]08-28-2024 Miscellaneous Notes* Telephone Encounter - Coretta Jalloh RPh - 11/18/2023 4:30 PM EDT [facility]acy Anticoagulation Clinic Anticoagulation Episode Summary Anticoagulation Care Providers Provider Role Specialty Phone number Stas Mora MD Referring Family Medicine [phone] Roby Flores is a 88 year old [...] need for refills. Coretta Jalloh [facility] Clinical Pharmacist, Pharmacy Anticoagulation Clinic Pharmacy Anticoagulation Clinic Pager: [phone]. documented in this encounterWood County Hospital08-26-2024 Telephone encounter Note * Telephone Encounter - Elvis Kearney APRN.CNP - 11/16/2023 9:39 AM EDT The following approved medication requests have been transmitted electronically. Requested Prescriptions Pending Prescriptions Disp Refills warfarin (COUMADIN) 1 mg tablet 30 tablet 5 Sig: Take 1 tablet by mouth once daily. Elvis Kearney APRN.CNP [facility]08-26-2024 Miscellaneous Notes* Telephone Encounter - Elvis [...] 16, 2023 9:00 AM documented in this encounterWood County Hospital08-26-2024 Telephone encounter Note * Telephone Encounter [...] Shahid MA November 16, 2023 9:06 AM [facility]08-26-2024 Telephone encounter Note* Telephone Encounter - [...] Keke Rinaldi November 16, 2023 9:00 AM [facility]07-24-2024 Telephone encounter Note* Telephone Encounter - Coretta Jalloh [facility] - 10/14/2023 4:21 PM EDT [facility] Pharmacy Anticoagulation Clinic Anticoagulation Episode Summary Anticoagulation Care Providers Provider Role Specialty Phone number Stas Mora MD Referring Family Medicine [phone] Roby Flores is a 88 year old [...] ALLERGIES No Known Allergies Indication for Warfarin: 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 Paroxysmal atrial fibrillation [...] Pharmacy Anticoagulation Clinic Pharmacy Anticoagulation Clinic Pager: [phone]. [facility]07-24-[facility] Miscellaneous Notes* Telephone Encounter - Coretta Jalloh RPh - 10/14/2023 4:21 PM EDT [facility]acy Anticoagulation Clinic Anticoagulation Episode Summary Anticoagulation Care Providers Provider Role Specialty Phone number Stas Mora MD Referring Family Medicine [phone] Roby Flores is a 88 year old [...] Pharmacy Anticoagulation Clinic Pharmacy Anticoagulation Clinic Pager: [phone]. documented in this encounterWood County Hospital06-26-2024 Telephone encounter Note * Telephone Encounter - Colleen Sommer RPh - 09/16/2023 11:15 AM EDT [facility]acy Anticoagulation Clinic Anticoagulation Episode Summary Anticoagulation Care Providers Provider Role Specialty Phone number Stas Mora MD Referring Family Medicine [phone] Roby Flores is a 88 year old [...] Pharmacy Anticoagulation Clinic Pharmacy Anticoagulation Clinic Pager: [phone]. [facility]06-26-2024 Miscellaneous Notes* Telephone Encounter - Colleen Sommer RPh - 09/16/2023 11:15 AM EDT [facility]acy Anticoagulation Clinic Anticoagulation Episode Summary Anticoagulation Care Providers Provider Role Specialty Phone number Stas Mora MD Referring Family Medicine [phone] Roby Flores is a 88 year old [...] Pharmacy Anticoagulation Clinic Pharmacy Anticoagulation Clinic Pager: [phone]. documented in this encounterWood County Hospital06-25-2024 Instructions* Patient Instructions* Rosie Cruz MA - 09/15/2023 8:48 AM EDT Starting Lasix (Furosemide) 20 mg once daily as needed. You can use the medication on days where swelling is increased. Elevate legs through out the day to help with swelling. Decrease sodium in diet. documented in this encounterWood County Hospital06-25-2024 History of Present illness Narrative* Stas [...] Coronary atherosclerosis of unspecified type of vessel, [place] or graft Coronary artery disease Other and [...] Histories independently gathered by the clinical it support analyst and the remaining scribed note accurately describes [...] AM. Rosie Cruz MA documented in this encounterWood County Hospital06-24-2024 Telephone encounter Note * Telephone Encounter [...] difficulty breathing Protocols used: Leg Swelling and [id number] [facility]06-24-2024 Miscellaneous Notes* Telephone Encounter - Marian [...] difficulty breathing Protocols used: Leg Swelling and [id number] * Telephone Encounter - Elana Valdes RN - 09/14/2023 2:52 PM EDT Called and left a voicemail for the Patient and on the Pts girlfriends phone to have the Pt call back and ask for a nurse to receive the providers message. We need more information about his bilateral leg swelling that he was scheduled for tomorrow. Elana Valdes RN documented in this encounterWood County Hospital06-24-2024 Telephone encounter Note * Telephone Encounter [...] was scheduled for tomorrow. Elana Valdes RN [facility]06-12-2024 Telephone encounter Note* Telephone Encounter - Coretta Jalloh RPh - 09/02/2023 3:08 PM EDT [facility]acy Anticoagulation Clinic Anticoagulation Episode Summary Anticoagulation Care Providers Provider Role Specialty Phone number Stas Mora MD Referring Family Medicine [phone] Roby Flores is a 88 year old [...] ALLERGIES No Known Allergies Indication for Warfarin: 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 Paroxysmal atrial fibrillation [...] Pharmacy Anticoagulation Clinic Pharmacy Anticoagulation Clinic Pager: [phone]. [facility]06-12-2024 Miscellaneous Notes* Telephone Encounter - Coretta Jalloh RPh - 09/02/2023 3:08 PM EDT [facility] Anticoagulation Clinic Anticoagulation Episode Summary Anticoagulation Care Providers Provider Role Specialty Phone number Stas Mora MD Referring Family Medicine [phone] Roby Flores is a 88 year old [...] need for refills. Coretta Jalloh [facility] Clinical Pharmacist, Pharmacy Anticoagulation Clinic Pharmacy Anticoagulation Clinic Pager: [phone]. documented in this encounterWood County Hospital06-05-2024 Telephone encounter Note * Telephone Encounter - Coretta Jalloh RPh - 08/26/2023 5:03 PM EDT [facility] Anticoagulation Clinic Anticoagulation Episode Summary Anticoagulation Care Providers Provider Role Specialty Phone number Stas Mora MD Referring Family Medicine [phone] Roby Flores is a 88 year old [...] Pharmacy Anticoagulation Clinic Pharmacy Anticoagulation Clinic Pager: [phone]. [facility]06-05-2024 Miscellaneous Notes* Telephone Encounter - Coretta Jalloh RPh - 08/26/2023 5:03 PM EDT [facility] Anticoagulation Clinic Anticoagulation Episode Summary Anticoagulation Care Providers Provider Role Specialty Phone number Stas Mora MD Referring Family Medicine [phone] Roby Flores is a 88 year old [...] Pharmacy Anticoagulation Clinic Pharmacy Anticoagulation Clinic Pager: [phone]. documented in this encounterWood County Hospital05-29-2024 Telephone encounter Note * Telephone Encounter - Coretta Jalloh RPh - 08/19/2023 5:09 PM EDT [facility] Anticoagulation Clinic Anticoagulation Episode Summary Anticoagulation Care Providers Provider Role Specialty Phone number Stas Mora MD Referring Family Medicine [phone] Roby Flores is a 88 year old [...] Pharmacy Anticoagulation Clinic Pharmacy Anticoagulation Clinic Pager: [phone]. [facility]05-29-2024 Miscellaneous Notes* Telephone Encounter - Coretta Jalloh RPh - 08/19/2023 5:09 PM EDT [facility] Anticoagulation Clinic Anticoagulation Episode Summary Anticoagulation Care Providers Provider Role Specialty Phone number Stas Mora MD Referring Family Medicine [phone] Roby Flores is a 88 year old [...] Pharmacy Anticoagulation Clinic Pharmacy Anticoagulation Clinic Pager: [phone]. documented in this encounterWood County Hospital05-24-2024 History of Present illness Narrative* Stas [...] thinks he is being sued by a moravian and thathe was given a letter about it, doesn't know who the tile and mottle supervisor is or where the moravian is. states this is not true. He was looking for his brother who lives out of state, thought he was still staying with them, however he has not been up to [place] since Jan. No hallucinations. Is not leaving [...] Coronary atherosclerosis of unspecified type of vessel, [place] or graft Coronary artery disease Other and [...] Histories independently gathered by the clinical it support analyst and the remaining scribed note accurately describes [...] AM. Marta Palacio MA documented in this encounterWood County Hospital05-22-2024 Telephone encounter Note * Telephone Encounter - Coretta Jalloh [facility] - 08/12/2023 4:27 PM EDT [facility] Anticoagulation Clinic Anticoagulation Episode Summary Anticoagulation Care Providers Provider Role Specialty Phone number Stas Mora MD Referring Family Medicine [phone] Roby Flores is a 87 year old [...] ALLERGIES No Known Allergies Indication for Warfarin: 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 Paroxysmal atrial fibrillation [...] Pharmacy Anticoagulation Clinic Pharmacy Anticoagulation Clinic Pager: [phone]. [address]22-2024 Miscellaneous Notes* Telephone Encounter - Coretta Jalloh [facility] - 08/12/2023 4:27 PM EDT [facility] Anticoagulation Clinic Anticoagulation Episode Summary Anticoagulation Care Providers Provider Role Specialty Phone number Stas Mora MD Referring Family Medicine [phone] Roby Flores is a 87 year old [...] Pharmacy Anticoagulation Clinic Pharmacy Anticoagulation Clinic Pager: [phone]. documented in this encounterWood County Hospital05-15-2024 Telephone encounter Note * Telephone Encounter - Coretta Jalloh RPh - 08/05/2023 4:41 PM EDT [facility] Anticoagulation Clinic Anticoagulation Episode Summary Anticoagulation Care Providers Provider Role Specialty Phone number Stas Mora MD Referring Family Medicine [phone] Roby Flores is a 87 year old [...] ALLERGIES No Known Allergies Indication for Warfarin: 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 Paroxysmal atrial fibrillation [...] Pharmacy Anticoagulation Clinic Pharmacy Anticoagulation [facility] Pager: [phone]. [facility]05-15-2024 Miscellaneous Notes* Telephone Encounter - Coretta Jalloh RPh - 08/05/2023 4:41 PM EDT [facility] Anticoagulation Clinic Anticoagulation Episode Summary Anticoagulation Care Providers Provider Role Specialty Phone number Stas Mora MD Referring Family Medicine [phone] Roby Flores is a 87 year old [...] Pharmacy Anticoagulation Clinic Pharmacy Anticoagulation Clinic Pager: [phone]. documented in this encounterWood County Hospital05-08-2024 Telephone encounter Note * Telephone Encounter - Elena Lopez RPh - 07/29/2023 3:21 PM EDT [facility] Anticoagulation Clinic Anticoagulation Episode Summary Anticoagulation Care Providers Provider Role Specialty Phone number Stas Mora MD Referring Family Medicine [phone] Roby Flores is a 87 year old [...] ALLERGIES No Known Allergies Indication for Warfarin: 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 Paroxysmal atrial fibrillation [...] Pharmacy Anticoagulation Clinic Pharmacy Anticoagulation Clinic Pager: [phone]. [facility]05-08-2024 Miscellaneous Notes* Telephone Encounter - Elena Lopez RPh - 07/29/2023 3:21 PM EDT [facility] Anticoagulation Clinic Anticoagulation Episode Summary Anticoagulation Care Providers Provider Role Specialty Phone number Stas Mora MD Referring Family Medicine [phone] Roby Flores is a 87 year old [...] ALLERGIES No Known Allergies Indication for Warfarin: 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 Paroxysmal atrial fibrillation [...] Patient denies need for refills. Elena Lopez [facility] Clinical Pharmacist, Pharmacy Anticoagulation Clinic Pharmacy Anticoagulation Clinic Pager: [phone]. documented in this encounterWood County Hospital05-01-2024 Telephone encounter Note * Telephone Encounter - Coretta Jalloh RPh - 07/22/2023 4:40 PM EDT [facility] Anticoagulation [facility] Anticoagulation Episode Summary Anticoagulation Care Providers Provider Role Specialty Phone number Stas Mora MD Referring Family Medicine [phone] Roby Flores is a 87 year old [...] ALLERGIES No Known Allergies Indication for Warfarin: 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 Paroxysmal atrial fibrillation [...] Pharmacy Anticoagulation Clinic Pharmacy Anticoagulation Clinic Pager: [phone]. [facility]05-01-2024 Miscellaneous Notes* Telephone Encounter - Coretta Jalloh RPh - 07/22/2023 4:40 PM EDT [facility]tico[facility] Anticoagulation Episode Summary Anticoagulation Care Providers Provider Role Specialty Phone number Stas Mora MD Referring Family Medicine [phone] Roby Flores is a 87 year old [...] ALLERGIES No Known Allergies Indication for Warfarin: 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 Paroxysmal atrial fibrillation [...] Pharmacy Anticoagulation Clinic Pharmacy An[facility] Clinic Pager: [phone]. documented in this encounterWood [facility] Telephone encounter Note * Telephone Encounter - Coretta Jalloh RPh - 07/15/2023 3:18 PM EDT [facility] Anticoagulation Episode Summary Anticoagulation Care Providers Provider Role Specialty Phone number Stas Mora MD Referring Family Medicine [phone] Roby Flores is a 87 year old [...] ALLERGIES No Known Allergies Indication for Warfarin: 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 Paroxysmal atrial fibrillation [...] Pharmacy Anticoagulation Clinic Pharmacy Anticoagulation Clinic Pager: [phone]. [facility]04-24-2024 Miscellaneous Notes* Telephone Encounter - Coretta Jalloh RPh - 07/15/2023 3:18 PM EDT [facility] Anticoagulation Episode Summary Anticoagulation Care Providers Provider Role Specialty Phone number Stas Mora MD Referring Family Medicine [phone] Roby Flores is a 87 year old [...] Pharmacy Anticoagulation Clinic Pharmacy Anticoagulation Clinic Pager: [phone]. documented in this encounterWood [facility] Hospital04-17-2024 Miscellaneous Notes* Telephone Encounter - Coretta Jalloh RPh - 07/08/2023 4:36 PM EDT [facility] Anticoagulation Episode Summary Anticoagulation Care Providers Provider Role Specialty Phone number Stas Mora MD Referring Family Medicine [phone] Roby Flores is a 87 year old [...] Pharmacy Anticoagulation Clinic Pharmacy Anticoagulation Clinic Pager: [phone]. documented in this encounterWood County Hospital04-10-[facility]24 Miscellaneous Notes* Telephone Encounter - Coretta Jalloh RPh - 07/01/2023 5:20 PM EDT [facility] Anticoagulation Episode Summary Anticoagulation Care Providers Provider Role Specialty Phone number Stas Mora MD Referring Family Medicine [phone] Roby Flores is a 87 year old [...] Pharmacy Anticoagulation Clinic Pharmacy Anticoagulation Clinic Pager: [phone]. documented in this encounterWood County Hospital04-04-2024 Telephone encounter Note * Telephone Encounter - Adrian ([employer])Elana - 06/25/2023 5:14 PM EDT Images from [...] remains on Remote TM list. Elana Campbell ([employer]) [facility]04-04-2024 Miscellaneous Notes* Telephone Encounter - Adrian HuangDigital UnionElana Berry - 06/25/2023 5:14 PM EDT Images [...] remains on Remote TM list. Elana Campbell (Tongue Trimmer) * Telephone Encounter - Stas Mora MD - 06/25/2023 4:44 PM EDT It looks like my office became involved because the on-call doctor was called with his elevated INR. I would prefer he stay with the pharmacy for his routine monitoring. Stas Mora MD * Telephone Encounter - Adrian ([employer])Elana - 06/25/2023 4:03 PM EDT Pharm Phone [...] this time Please advise. Elana Campbell CPhT (Marriage Performer) Pharmacy Anticoagulation Clinic documented in this encounterWood County Hospital04-04-2024 Telephone encounter Note * Telephone Encounter - Stas Mora MD - 06/25/2023 4:44 PM EDT It looks like my office became involved because the on-call doctor was called with his elevated INR. I would prefer he stay with the pharmacy for his routine monitoring. Stas Mora MD [facility]04-04-2024 Telephone encounter Note* Telephone Encounter - Adrian (Tongue Trimmer)Elana - 06/25/2023 4:03 PM EDT Pharm Phone Call follow up. PPC note: 06/24 did PCP advise who is managing the patient? RN placed this note. We will need to reach out to MD office as patient will have next INR 4/5 to determine who will manage results PPC Patient is to have INR checked tomorrow (06/25). Unclear who is managing results. Will route to provider for input. Dr. Mora: It appears your office has been managing patient's INRs/warfarin. If you plan to continue managing patients results, PAC will DC patient from our service at this time Please advise. Elana Campbell CPhT (Marriage Performer) Pharmacy Anticoagulation Clinic [facility]04-03-2024 Miscellaneous Notes* Telephone Encounter - Jason [...] with VKA drugs, such as warfarin, the [place] [employer] 2012 Guideline recommends [...] Chest 2012, 141:7S-47S Avel RA, et al. [facility] 2017, 70: 252-289 Confirmed that pt is taking 1 mg daily. No changes to diet, medications, missed or extra doses, etc. Keke Tsang MA documented in this encounterWood County Hospital03-22-2024 Miscellaneous Notes* Telephone Encounter - Marta Palacio MA - 06/12/2023 11:21 AM EDT Gabby notified and voiced understanding. Tracker and med list updated. Marta Palacio MA * Telephone Encounter - Luz Elena Giraldo APRN.CNP - 06/12/2023 9:39 AM EDT Continue current Coumadin dose, recheck again in 2 weeks. Luz Elena Giraldo APRN.ARCHAEOLOGY PROFESSOR * Telephone Encounter - Rosie Cruz Ma - 06/11/2023 4:24 PM EDT Last INR: PT INR 2.2 06/11/2023 Current dose of coumadin is: 1 mg daily. Last date of dose change: 06/08/23. Previous INR (date and result): 3.2 on 06/08/23 Additional Clinical Information or narrative: no Rosie Cruz Ma documented in this encounterWood County Hospital03-18-2024 Miscellaneous Notes* Telephone Encounter - Keke [...] Information or narrative: no documented in this encounterWood County Hospital03-15-2024 Miscellaneous Notes* Telephone Encounter - Halina [...] went over notes below from Jenna Fitzpatrick ECOLOGICAL ECONOMIST. She said no change in his diet, not taking any antibiotics, has not taken double dose. Patient currently taking coumadin2.5 mg daily. * Telephone Encounter - Jenna Fitzpatrick APRN.SHEMAR - 06/05/2023 9:11 AM EDT Attempted to call the patient and daughter to discuss critical lab value that was received yesterday. On-call provider tried calling the patient last night several times without answer. I attempted to call the patient again this morning and his daughter without answer. INR was 6.9. Jenna Fitzpatrick APRN.ARCHAEOLOGY PROFESSOR documented in this encounterWood County Hospital03-15-2024 Miscellaneous Notes* Telephone Encounter - Marta Palacio MA - 06/05/2023 10:15 AM EDT See phone note 06/05/23 with Jenna Fitzpatrick. Marta Palacio MA * Telephone Encounter - Jasmin Bell MD - 06/04/2023 7:59 PM EDT Been trying to call patient at numbers give and goes straight to . Sending Quisic message in case will see that sooner. After multiple attempts, I called [facility]. They cannot call the patient but if the patient calls them, they will conference call with me. documented in this encounterWood County Hospital03-15-2024 Miscellaneous Notes* Telephone Encounter - Marta [...] message on daughter Anabella's mobile. Sent a Quisic message too. Called [facility] and the will conference call me if patient calls them. documented in this encounterWood County Hospital03-14-2024 Miscellaneous Notes* Telephone Encounter - Hortencia Winston RN - 06/04/2023 8:[address] Bell has left messages for the patient to call back regarding a critical lab. documented in this encounterWood County Hospital03-14-2024 Miscellaneous Notes* Telephone Encounter - Minda [...] LPN * Telephone Encounter - Jenna Fitzpatrick APRN.ARCHAEOLOGY PROFESSOR - 06/04/2023 11:37 AM EDT Can you [...] has any questions. Thank you. Jenna Fitzpatrick APRN.CNP documented in this encounterWood County Hospital03-13-2024 Miscellaneous Notes* Telephone Encounter - Yeimi Coretta, [facility] - 06/03/2023 3:22 PM EDT [facility] Anticoagulation Episode Summary Anticoagulation Care Providers Provider Role Specialty Phone number Stas Mora MD Referring Family Medicine [phone] Roby Flores is a 87 year old [...] Pharmacy Anticoagulation Clinic Pharmacy Anticoagulation Clinic Pager: [phone]. documented in this encounterWood County Hospital03-11-2024 History of Present illness Narrative* Stas Mora MD - 06/01/2023 3:20 PM EDT Chief Complaint Patient presents with: F/U 3 Month HPI oRby Flores is a 87 year old male [...] Coronary atherosclerosis of unspecified type of vessel, [place] or graft Coronary artery disease Other and [...] unspecified vessel or lesion type, unspecified whether [place] or transplanted heart - ICD9: 414.00, ICD10: [...] Histories independently gathered by the clinical it support analyst and the remaining scribed note accurately describes [...] PM. Marta Palacio MA documented in this encounterWood County Hospital03-06-2024 Miscellaneous Notes* Telephone Encounter - Coretta Jalloh [facility] - 05/27/2023 2:23 PM EST [facility] Anticoagulation Episode Summary Anticoagulation Care Providers Provider Role Specialty Phone number Stas Mora MD Referring Family Medicine [phone] Robyimelda Flores is a 87 year old year old male patient being evaluated today for a [facility] Anticoagulation Episode Summary Anticoagulation Care Providers Provider Role Specialty Phone number Stas Mora MD Referring Family Medicine [phone] Robyimelda Flores is a 87 year old [...] Pharmacy Anticoagulation Clinic Pharmacy Anticoagulation Clinic Pager: [phone]. documented in this encounterWood County Hospital02-28-2024 Miscellaneous Notes* Telephone Encounter - Coretta Jalloh RPh - 05/20/2023 2:36 PM EST [facility]tico[facility] Anticoagulation Episode Summary Anticoagulation Care Providers Provider Role Specialty Phone number Stas Mora MD Referring Family Medicine [phone] Roby Flores is a 87 year old [...] Pharmacy Anticoagulation Clinic Pharmacy Anticoagulation Clinic Pager: [phone]. documented in this encounterWood County Hospital02-21-2024 Miscellaneous Notes* Telephone Encounter - Senia Phillips, [facility] - 05/13/2023 4:06 PM EST [facility] Anticoagulation Clinic Anticoagulation Episode Summary Anticoagulation Care Providers Provider Role Specialty Phone number Stas Mora MD Referring Family Medicine [phone] Roby Flores is a 87 year old [...] ALLERGIES No Known Allergies Indication for Warfarin: 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 Paroxysmal atrial fibrillation [...] Pharmacy Anticoagulation Clinic Pharmacy Anticoagulation Clinic Pager: [phone]. documented in this encounterWood County Hospital02-14-2024 Miscellaneous Notes* Telephone Encounter - Coretta Jalloh RPh - 05/06/2023 3:14 PM EST [facility]ticoagulation [facility] Anticoagulation Episode Summary Anticoagulation Care Providers Provider Role Specialty Phone number Stas Mora MD Referring Family Medicine [phone] Roby Flores is a 87 year old [...] lab INR check scheduled on 05/13/2023 for Maria Guadalupe. Coretta Jalloh RPh Clinical Pharmacist, Pharmacy Anticoagulation Clinic Pharmacy Anticoagulation Clinic Pager: [phone]. documented in this encounterWood County Hospital02-07-2024 Miscellaneous Notes* Telephone Encounter - Coretta Jalloh RPh - 04/29/2023 4:00 PM EST [facility] Anticoagulation Clinic Anticoagulation Episode Summary Anticoagulation Care Providers Provider Role Specialty Phone number Stas Mora MD Referring Family Medicine [phone] Roby Flores is a 87 year old [...] ALLERGIES No Known Allergies Indication for Warfarin: 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 Paroxysmal atrial fibrillation [...] Pharmacy Anticoagulation Clinic Pharmacy Anticoagulation Clinic Pager: [phone]. documented in this encounterWood County Hospital12-01-2023 Miscellaneous Notes* Telephone Encounter - Elise Paredes RPh - 02/20/2023 3:37 PM EST [facility] Anticoagulation Clinic Anticoagulation Episode Summary Anticoagulation Care Providers Provider Role Specialty Phone number Stas Mora MD Referring Family Medicine [phone] Roby Flores is a 87 year old [...] ALLERGIES No Known Allergies Indication for Warfarin: 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 Paroxysmal atrial fibrillation [...] Pharmacy Anticoagulation Clinic Pharmacy Anticoagulation Clinic Pager: [phone]. documented in this encounterWood County Hospital11-28-2023 Miscellaneous Notes* Telephone Encounter - Franca [...] pt to call back for results. Marta aPlacio MA * Telephone Encounter - Stas Mora MD - 02/17/2023 9:36 AM EST Please notify patient that his MRI does show a small stoke. Unless he is much better today I would recommend return to ER; I think he would benefit from admission for further evaluation and therapy evaluation Stas Mora MD documented in this encounterWood County Hospital11-28-2023 History of Present illness Narrative* Janelle [...] 17, 2023 7:43 AM documented in this encounterWood County Hospital11-27-2023 History of Present illness Narrative* Stas Mora MD - 02/16/2023 2:00 PM EST Chief Complaint Patient presents with: ED Follow-up HPI Roby Flores is a 87 year old male who presents here today for ER Follow Up.. Pt went to the [facility] ER on 02/10/23 with c/o fatigue, weakness, [...] Recheck in 1 week. Below copied from [employer]: Chief Complaint: Fatigue Informant: patient Onset/Context/Timing Onset: [...] Coronary atherosclerosis of unspecified type of vessel, [place] or graft Coronary artery disease Other and [...] Completed Pneumococcal Vaccine: 65+ Completed Data reviewed [facility] ER reports 02/10/23 ASSESSMENT/PLAN: 1. Cerebral infarction, [...] Histories independently gathered by the clinical it support analyst and the remaining scribed note accurately describes [...] PM. Marta Palacio Ma documented in this encounterWood County Hospital11-24-2023 Miscellaneous Notes* Telephone Encounter - Elise Paredes, [facility] - 02/13/2023 3:56 PM EST [facility] Anticoagulation Clinic Anticoagulation Episode Summary Anticoagulation Care Providers Provider Role Specialty Phone number Stas Mora MD Referring Family Medicine [phone] Roby Flores is a 87 year old [...] ALLERGIES No Known Allergies Indication for Warfarin: 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 Paroxysmal atrial fibrillation [...] scheduled on 02/20/2023 Elise Paredes [facility] Clinical Pharmacist, Pharmacy Anticoagulation Clinic Pharmacy Anticoagulation Clinic Pager: [phone]. documented in this encounterWood County Hospital11-17-2023 Miscellaneous Notes* Telephone Encounter - Senia Phillips [facility] - 02/06/2023 4:28 PM EST [facility] Anticoagulation Clinic Anticoagulation Episode Summary Anticoagulation Care Providers Provider Role Specialty Phone number Stas Mora MD Referring Family Medicine [phone] Roby Flores is a 87 year old [...] Pharmacy Anticoagulation Clinic Pharmacy Anticoagulation Clinic Pager: [phone]. documented in this encounterWood County Hospital10-06-2023 Miscellaneous Notes* Telephone Encounter - Senia Phillips RPh - 12/26/2022 3:04 PM EDT [facility] Anticoagulation Clinic Anticoagulation Episode Summary Anticoagulation Care Providers Provider Role Specialty Phone number Stas Mora MD Referring Family Medicine [phone] Roby Flores is a 87 year old [...] ALLERGIES No Known Allergies Indication for Warfarin: 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 Paroxysmal atrial fibrillation (hcc) Anticoagulation Episode Summary Current INR goal: 2.0-3.0 Assessment: INR result of 2.5 is therapeutic Plan: Current Warfarin Dosing As of 12/26/2022 Full warfarin instructions: 2.5 mg every day [facility] [employer] message Advised patient to continue current weekly dose as noted above Next lab INR check scheduled on 01/09/2023 Senia Phillips RPh Clinical Pharmacist, Pharmacy Anticoagulation Clinic Pharmacy Anticoagulation Clinic Pager: [phone]. documented in this encounterWood County Hospital09-29-2023 Miscellaneous Notes* Telephone Encounter - Senia Phillips RPh - 12/19/2022 4:30 PM EDT [facility]tico[facility] Anticoagulation Episode Summary Anticoagulation Care Providers Provider Role Specialty Phone number Stas Mora MD Referring Family Medicine [phone] Roby Flores is a 87 year old [...] warfarin instructions: 2.5 mg every day [facility] [employer] message Advised patient to continue current weekly dose as noted above Next lab INR check scheduled on 01/02/2023 Senia Phillips RPh Clinical Pharmacist, Pharmacy Anticoagulation Clinic Pharmacy Anticoagulation Clinic Pager: [phone]. documented in this encounterWood County Hospital09-22-2023 Miscellaneous Notes* Telephone Encounter - Senia Phillips RPh - 12/12/2022 4:01 PM EDT [facility] Anticoagulation Clinic Anticoagulation Episode Summary Anticoagulation Care Providers Provider Role Specialty Phone number Stas Mora MD Referring Family Medicine [phone] Roby Flores is a 87 year old [...] ALLERGIES No Known Allergies Indication for Warfarin: 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 Paroxysmal atrial fibrillation [...] Pharmacy Anticoagulation Clinic Pharmacy Anticoagulation Clinic Pager: [phone]. documented in this encounterWood County Hospital09-01-2023 Miscellaneous Notes* Telephone Encounter - Jeimy Duong RPh - 11/21/2022 2:38 PM EDT [facility] Anticoagulation Clinic Anticoagulation Episode Summary Anticoagulation Care Providers Provider Role Specialty Phone number Stas Mora MD Referring Family Medicine [phone] Roby Flores is a 87 year old [...] Pharmacy Anticoagulation Clinic Pharmacy Anticoagulation Clinic Pager: [phone]. documented in this encounterWood County Hospital08-28-2023 Hospital Discharge instructions Patient Education 11/17/2022 [...] Wound changes colors Numbness around the wound 6217-5200 [employer]. [address] [place] [address], [place] [address]. All rights reserved. This information is not [...] the ears or bruising around the eyes 8840-5931 [employer]. [address] [place] [address], [place] [address]. All rights reserved. This information is not intended as a substitute for professional medical care. Always follow yourhealthcare professional's instructions. Follow Up Care 11/17/2022 15:05:08 With:Call Physician Referral Address:Unknown When:2-4 days [facility] 08-28-2023 Note Discharge Instructions Thank you for allowing [facility] to assist you with your healthcare needs. [...] Wound changes colors Numbness around the wound 6044-8272 [employer]. [address] [place] [address]. All rights reserved. This information is not [...] the ears or bruising around the eyes 3414-4633 [employer]. [address] [place] [address]. All rights reserved. This information is not intended as a substitute for professional medical care. Always follow yourhealthcare professional's instructions. Additional Information VACCINATE! IT SAVES LIVES! Members of the community who have not yet received the COVID-19 vaccine and would like to receive it can visit one of [facility] vaccine clinics. There are many vaccine clinic locations within the [facility]. For locations and available times, please visit www.[email or web address].[place].gov/. It is important to note that some COVID mobile vaccine clinics are held outdoors and may be canceled in rainy or stormy conditions. To learn more about pediatric vaccinations (ages 5-11), we invite you to visit the [facility] webpage. [email or web address]://[email or web address]/[email or web address]-[email or web address] stions.htmlTo learn more about the COVID-19 vaccine, we invite you to visit the CDC website for a list of frequently asked questions. https://www.cdc.gov/coronavirus/2019-ncov/vaccines/faq.html [facility] Patient Portal Access Instructions: Stay connected with your healthcare team and access your personal medical information anytime with the [facility] Patient Portal. If you would like a full copy of your medical records please contact the [facility] Medical Records Department Thursday through Thursday between 8a.m. and 4:30p.m. Please follow the directions below to access the portal: 1.Access the email account you provided upon registration to the [facility].2.Look for an invitation email from [facility].3.Open the email and access the invitation link: Accept Invitation to [facility]4.Fill in the required العلي to create [...] you will allow to register on the [facility] Patient Portal for access to your information. You can also access the [facility] Patient Portal on the [employer]. Simply click on "Health Records" under "HealthData" and then click on the [facility] logo. [...] Call your local pharmacy or go to [email or web address] to find one close to you.3.Make use of household items: Use cat litter or old coffee grounds to dispose medications if other options arenot available. Mix your drugs with these household products, seal them in an airtight container andthrow it into the garbage. Call [facility]: [phone] to be sure your drugs can be [...] aware that I should contact my doctor. Patient/[employer] Signature: Date/Time: Relationship to Patient: Witness Name/Signature: Date/Time: [facility]08[facility]23 Note ORIGINAL EXAMINATION: CT OF THE [...] Sign Date: 11/17/2022 4:26:20 PM Ordering Provider: [facility]08-18-2023 Miscellaneous Notes* Telephone Encounter - Senia Phillips [facility] - 11/07/2022 3:22 PM EDT [facility] Anticoagulation Clinic Anticoagulation Episode Summary Anticoagulation Care Providers Provider Role Specialty Phone number Stas Mora MD Referring Family Medicine [phone] Roby Flores is a 87 year old [...] ALLERGIES No Known Allergies Indication for Warfarin: 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 Paroxysmal atrial fibrillation (hcc) Anticoagulation Episode Summary Current INR goal: 2.0-3.0 Assessment: INR result of 2.2 is therapeutic Plan: Current Warfarin Dosing As of 11/07/2022 Full warfarin instructions: 2.5 mg every day Sent [facility] [employer] message Advised patient to continue current weekly dose as noted above Next lab INR check scheduled on 11/21/2022 Senia Phillips RPh Clinical Pharmacist, Pharmacy Anticoagulation Clinic Pharmacy Anticoagulation Clinic Pager: [phone]. documented in this encounterWood County Hospital08-11-2023 Miscellaneous Notes* Telephone Encounter - Senia Phillips RPh - 10/31/2022 2:29 PM EDT Patient due to test INR today. Will continue to monitor for results. Senia Phillips RPh documented in this encounterWood County Hospital08-04-2023 Miscellaneous Notes* Telephone Encounter - Senia Phillips RPh - 10/24/2022 3:13 PM EDT [facility] Anticoagulation [facility] Anticoagulation Episode Summary Anticoagulation Care Providers Provider Role Specialty Phone number Stas Mora MD Referring Family Medicine [phone] Roby Flores is a 87 year old [...] warfarin instructions: 2.5 mg every day [facility] [employer] message Advised patient to decrease total weekly regimen to better reflect overall dose given past few weeks Next lab INR check scheduled on 10/31/2022 Senia Phillips RPh Clinical Pharmacist, Pharmacy Anticoagulation Clinic Pharmacy Anticoagulation Clinic Pager: [phone]. documented in this encounterWood County Hospital07-28-2023 Miscellaneous Notes* Telephone Encounter - Jason [...] Anticoagulation TE call from today by the [facility]. They spoke with pt at [phone] and gave pt instructions on what to do. Halina Castelan RN documented in this encounterWood County Hospital07-28-2023 Miscellaneous Notes* Telephone Encounter - Yomi Wills, [facility] - 10/17/2022 3:43 PM EDT [facility] [place] [facility] Anticoagulation Episode Summary Anticoagulation Care Providers Provider Role Specialty Phone number Stas Mora MD Referring Family Medicine [phone] Roby Flores is a 87 year old [...] ALLERGIES No Known Allergies Indication for Warfarin: 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 Paroxysmal atrial fibrillation [...] Pharmacy Anticoagulation Clinic Pharmacy Antico[facility] Clinic Pager: [phone]. documented in this encounterWood County Hospital07-07-2023 Miscellaneous Notes* Telephone Encounter - Jeimy Duong RPh - 09/26/2022 2:11 PM EDT [facility] Anticoagulation Episode Summary Anticoagulation Care Providers Provider Role Specialty Phone number Stas Mora MD Referring Family Medicine [phone] Roby Flores is a 87 year old [...] Pharmacy Anticoagulation Clinic Pharmacy Anticoagulation Clinic Pager: [phone]. documented in this encounterWood County Hospital06-23-2023 Miscellaneous Notes* Telephone Encounter - Jeimy Duong RPh - 09/12/2022 2:50 PM EDT [facility] Anticoagulation Episode Summary Anticoagulation Care Providers Provider Role Specialty Phone number Stas Mora MD Referring Family Medicine [phone] Roby Flores is a 87 year old [...] accidental over dosage, changes in warfarin tablet color/shape/paper cleaner, eating less green vegetables, recent illness/fever/nausea/vomiting/diarrhea, increased [...] Pharmacy Anticoagulation Clinic Pharmacy Anticoagulation Clinic Pager: [phone]. documented in this encounterCleveland [id number] Instructions* Patient Instructions* Marta Palacio Ma - 08/26/2022 1:36 PM EDT Please check your medications when you get home and make sure that your medications match our list. documented in this encounterWood County Hospital06-06-2023 History of Present illness Narrative* Stas Mora MD - 08/26/2022 1:20 PM EDT Medical B eligibilty date 1999 Date of last exam 09/05/2021 PAST MEDICAL HISTORY Diagnosis Date Coronary atherosclerosis of unspecified type of vessel, [place] or graft Coronary artery disease Other and [...] Histories independently gathered by the clinical it support analyst and the remaining scribed note accurately describes my personal service to the patient. Stas Mora MD The documentation for this note was completed by Marta Palacio Ma acting as scribe for Stas Mora MD. August 26, 2022 1:17 PM. Marta Palacio Ma documented in this encounterWood County Hospital06-02-2023 Miscellaneous Notes* Telephone Encounter - Senia Phillips RPh - 08/22/2022 2:50 PM EDT [facility] Anticoagulation Episode Summary Anticoagulation Care Providers Provider Role Specialty Phone number Stas Mora MD Referring Family Medicine [phone] Roby Flores is a 87 year old [...] Fri; 2.5 mg all other days Sent [facility] [employer] message Advised patient to continue current weekly dose as noted above Next lab INR check scheduled on 08/29/2022 Senia Phillips RPh Clinical Pharmacist, Pharmacy Anticoagulation Clinic Pharmacy Anticoagulation Clinic Pager: [phone]. documented in this encounterWood County Hospital04-28-2023 Miscellaneous Notes* Telephone Encounter - Senia Phillips RPh - 07/18/2022 3:29 PM EDT [facility] Anticoagulation Episode Summary Anticoagulation Care Providers Provider Role Specialty Phone number Stas Mora MD Referring Family Medicine [phone] Roby Flores is a 86 year old [...] warfarin instructions: 2.5 mg every day Sent [facility] message Advised patient to continue current weekly dose as noted above Next lab INR check scheduled on 08/01/2022 Senia Phillips RPh Clinical Pharmacist, Pharmacy Anticoagulation Clinic Pharmacy Anticoagulation Clinic Pager: [phone]. documented in this encounterWood County Hospital04-14-2023 Miscellaneous Notes* Telephone Encounter - Lety Gandara [facility] - 07/04/2022 3:46 PM EDT [facility] Anticoagulation Episode Summary Anticoagulation Care Providers Provider Role Specialty Phone number Stas Mora MD Referring Family Medicine [phone] Roby Flores is a 86 year old [...] Pharmacy Anticoagulation Clinic Pharmacy Anticoagulation Clinic Pager: [phone]. documented in this encounterWood County Hospital04-03-2023 Miscellaneous Notes* Telephone Encounter - Elvis Kearney APRN.CNP - 06/23/2022 10:17 AM EDT The following approved medication requests have been transmitted electronically. Requested Prescriptions Pending Prescriptions Disp Refills warfarin (COUMADIN) 2.5 mg tablet [Pharmacy Med Name: WARFARIN SODIUM 2.5 MG TABLET] 135 tablet 3 Sig: TAKE 5 MG EVERY MON, DIXIE 2.5 MG ALL OTHER DAYS Elvis Kearney APRN.CNP documented in this encounterWood County Hospital03-31-2023 Miscellaneous Notes* Telephone Encounter - Senia Phillips RPh - 06/20/2022 4:46 PM EDT [facility] Anticoagulation Episode Summary Anticoagulation Care Providers Provider Role Specialty Phone number Stas Mora MD Referring Family Medicine [phone] Roby Flores is a 86 year old [...] ALLERGIES No Known Allergies Indication for Warfarin: 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 Paroxysmal atrial fibrillation (hcc) Anticoagulation Episode Summary Current INR goal: 2.0-3.0 Assessment: INR result of 2.9 is therapeutic Plan: Current Warfarin Dosing As of 06/20/2022 Full warfarin instructions: 2.5 mg every day Called and was unable to leave voice message - voicemailbox was for Maria Guadalupe, wasn't sure if ok to leave message Sent [employer] message Advised patient to continue current weekly dose as noted above Next lab INR check scheduled on 07/04/2022 Senia Phillips RPh Clinical Pharmacist, Pharmacy Anticoagulation Clinic Pharmacy Anticoagulation Clinic Pager: [phone]. documented in this encounterWood County Hospital03-17-2023 Miscellaneous Notes* Telephone Encounter - Senia Phillips RPh - 06/06/2022 4:18 PM EDT [facility] Anticoagulation Episode Summary Anticoagulation Care Providers Provider Role Specialty Phone number Stas Mora MD Referring Family Medicine [phone] Roby Flores is a 86 year old [...] ALLERGIES No Known Allergies Indication for Warfarin: 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 Paroxysmal atrial fibrillation (hcc) Anticoagulation Episode Summary Current INR goal: 2.0-3.0 Assessment: INR result of 2.6 is therapeutic Plan: Current Warfarin Dosing As of 06/06/2022 Full warfarin instructions: 2.5 mg every day Sent [facility] message Advised patient to continue current weekly dose as noted above Next lab INR check scheduled on 06/20/2022 Senia Phillips RPh Clinical Pharmacist, Pharmacy Anticoagulation Clinic Pharmacy Anticoagulation Clinic Pager: [phone]. documented in this encounterWood County Hospital03-10-2023 Miscellaneous Notes* Telephone Encounter - Neeru Rice LPN - 05/30/2022 3:02 PM EST Pharmacists manage INR documented in this encounterWood County Hospital03-02-2023 Miscellaneous Notes* Telephone Encounter - Halina [...] has any questions. Thank you. Jenna Fitzpatrick APRN.ARCHAEOLOGY PROFESSOR documented in this encounterWood County Hospital03-01-2023 Miscellaneous Notes* Telephone Encounter - Judy [...] hip/leg 10. : na Protocols used: Hip Ycxy-SNHSN-FE, Hip Feerey-WCDJB-MS documented in this encounterWood County Hospital03-01-2023 Miscellaneous Notes* Telephone Encounter - Fani Grace RN - 05/21/2022 12:22 PM EST Patient disconnected during transferred, called multiple time with no answer. documented in this encounterWood County Hospital02-27-2023 Miscellaneous Notes* Telephone Encounter - Paige [...] instructions. Franca Cohen LPN documented in this encounterWood County Hospital02-24-2023 Miscellaneous Notes* Telephone Encounter - Senia Phillips RPh - 05/16/2022 5:10 PM EST Patient due to test INR today. Will continue to monitor for results. Senia Phillips RPh documented in this encounterWood County Hospital02-10-2023 Miscellaneous Notes* Telephone Encounter - Senia Phillips RPh - 05/02/2022 3:06 PM EST [facility] Anticoagulation Episode Summary Anticoagulation Care Providers Provider Role Specialty Phone number Stas Mora MD Referring Family Medicine [phone] Roby Flores is a 86 year old year old male patient being evaluated today for a Telemanagement visit. Patient is currently on the following anticoagulant(s) Warfarin. Labs PT INR (no units) Date Value 05/15/2021 2.3 04/17/2021 1.9 03/13/2021 Test sent to [facility]. INR (no units) Date Value [...] ALLERGIES No Known Allergies Indication for Warfarin: 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 Paroxysmal atrial fibrillation (hcc) Anticoagulation Episode Summary Current INR goal: 2.0-3.0 Assessment: INR result of 2.1 is therapeutic Plan: Current Warfarin Dosing As of 05/02/2022 Full warfarin instructions: 2.5 mg every day Sent [facility] message Advised patient to continue current weekly dose as noted above Next lab INR check scheduled on 05/16/2022 Senia Phillips RPh Clinical Pharmacist, Pharmacy Anticoagulation Clinic Pharmacy Anticoagulation Clinic Pager: [phone]. documented in this encounterWood County Hospital01-27-2023 Miscellaneous Notes* Telephone Encounter - Senia Phillips RPh - 04/18/2022 4:25 PM EST [facility] Anticoagulation Episode Summary Anticoagulation Care Providers Provider Role Specialty Phone number Stas Mora MD Referring Family Medicine [phone] Roby Flores is a 86 year old year old male patient being evaluated today for a Telemanagement visit. Patient is currently on the following anticoagulant(s) Warfarin. Labs PT INR (no units) Date Value 05/15/2021 2.3 04/17/2021 1.9 03/13/2021 Test sent to [facility]. INR (no units) Date Value [...] ALLERGIES No Known Allergies Indication for Warfarin: 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 Paroxysmal atrial fibrillation (hcc) Anticoagulation Episode Summary Current INR goal: 2.0-3.0 Assessment: INR result of 2.4 is therapeutic Plan: Current Warfarin Dosing As of 04/18/2022 Full warfarin instructions: 2.5 mg every day; Starting 04/18/2022 Sent [facility] message Advised patient to continue current weekly dose as noted above Next lab INR check scheduled on 05/02/2022 Senia Phillips RPh Clinical Pharmacist, Pharmacy Anticoagulation Clinic Pharmacy Anticoagulation Clinic Pager: [phone]. documented in this encounterWood County Hospital01-13-2023 Miscellaneous Notes* Telephone Encounter - Elise Paredes RPh - 04/04/2022 4:09 PM EST [facility] Anticoagulation Episode Summary Anticoagulation Care Providers Provider Role Specialty Phone number Stas Mora MD Referring Family Medicine [phone] Roby Flores is a 86 year old year old male patient being evaluated today for a Lab INR. Patient is currently on the following anticoagulant(s) Warfarin. Labs PT INR (no units) Date Value 05/15/2021 2.3 04/17/2021 1.9 03/13/2021 Test sent to [facility]. INR (no units) Date Value [...] ALLERGIES No Known Allergies Indication for Warfarin: 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 Paroxysmal atrial fibrillation [...] every 2 weeks Elise Paredes [facility] Clinical Pharmacist, Pharmacy Anticoagulation Clinic Pharmacy Anticoagulation Clinic Pager: [phone]. documented in this encounterWood County Hospital01-09-2023 Miscellaneous Notes* Telephone Encounter - Rosie Cruz Ma - 03/31/2022 5:12 PM EST Office received continuity of care paperwork from the CT requesting pt's last OV, labs and Imm. PerPCP okay to fax back requested records. Faxed back to [facility] at F#: [phone]. Rosie Cruz Ma documented in this encounterWood County Hospital12-30-2022 Miscellaneous Notes* Telephone Encounter - Carmelina Cruz RPh - 03/21/2022 4:05 PM EST [facility] Anticoagulation Episode Summary Anticoagulation Care Providers Provider Role Specialty Phone number Stas Mora MD Referring Family Medicine [phone] Roby Flores is a 86 year old year old male patient being evaluated today for a Telemanagement visit. Patient is currently on the following anticoagulant(s) Warfarin. Labs PT INR (no units) Date Value 05/15/2021 2.3 04/17/2021 1.9 03/13/2021 Test sent to [facility]. INR (no units) Date Value [...] ALLERGIES No Known Allergies Indication for Warfarin: 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 Paroxysmal atrial fibrillation (hcc) Anticoagulation Episode Summary Current INR goal: 2.0-3.0 Assessment: INR result of 2.9 is therapeutic Plan: Current Warfarin Dosing As of 03/21/2022 Full warfarin instructions: 2.5 mg every day; Starting 03/21/2022 Sent [facility] message Advised patient to continue current weekly dose as noted above Next home INR check scheduled on 04/04/2022 Carmelina Cruz RPh Clinical Pharmacist, Pharmacy Anticoagulation Clinic Pharmacy Anticoagulation Clinic Pager: [phone]. * Telephone Encounter - Carmelina Cruz RPh - 03/21/2022 3:12 PM EST Patient due to test INR today. Will continue to monitor for results. Carmelina Cruz RPh documented in this encounterWood County Hospital12-02-2022 Miscellaneous Notes* Telephone Encounter - Oliva [...] whatever he wanted to. documented in this encounterWood County Hospital10-31-2022 Miscellaneous Notes* Telephone Encounter - Paige Hickman RPh - 01/20/2022 3:55 PM EDT [facility] Anticoagulation Episode Summary Anticoagulation Care Providers Provider Role Specialty Phone number Stas Mora MD Referring Family Medicine [phone] Roby Flores is a 86 year old year old male patient being evaluated today for a Telemanagement visit. Patient is currently on the following anticoagulant(s) Warfarin. Labs PT INR (no units) Date Value 05/15/2021 2.3 04/17/2021 1.9 03/13/2021 Test sent to [facility]. INR (no units) Date Value [...] instructed to call [facility] at [phone] with any questionsor concerns. Paige Hickman [facility] Clinical Pharmacist, Pharmacy Anticoagulation Clinic Pharmacy Anticoagulation Clinic Pager: [phone] documented in this encounterWood County Hospital10-28-2022 Miscellaneous Notes* Telephone Encounter - Senia [...] the providers message. Sent information as a [employer] message as well. Elana Valdes RN * Telephone Encounter - Stas Mora MD - 01/17/2022 4:25 PM EDT Hold coumadin Recheck INR on Thursday Stas Mora MD * Telephone Encounter - Rosie Cruz Ma - 01/17/2022 4:24 PM EDT Routing INR high priority to Pharmacy who manages pt's Coumadin. PCP will review and advise. Rosie rCuz Ma * Telephone Encounter - Stas Mora MD - 01/17/2022 3:54 PM EDT * Telephone Encounter - Enedelia Ibanez LPN - 01/17/2022 3:45 PM EDT Last INR: PT INR 5.7 01/17/2022 Attempted to contact patient with no answer at [phone]. Current dose of coumadin is: 2.5 mg every day . Previous INR (date and result): 01/03/22 2.4 documented in this encounterWood County Hospital10-24-2022 Miscellaneous Notes* Telephone Encounter - Jenna [...] advise. López Mckenna LPN documented in this encounterWood County Hospital10-14-2022 Miscellaneous Notes* Telephone Encounter - Senia Alan [facility] - 01/03/2022 4:11 PM EDT [facility] Anticoagulation Episode Summary Anticoagulation Care Providers Provider Role Specialty Phone number Stas Mora MD Referring Family Medicine [phone] Roby Flores is a 86 year old year old male patient being evaluated today for a Telemanagement visit. Patient is currently on the following anticoagulant(s) Warfarin. Labs PT INR (no units) Date Value 05/15/2021 2.3 04/17/2021 1.9 03/13/2021 Test sent to [facility]. INR (no units) Date Value [...] warfarin instructions: 2.5 mg every day Sent In[employer]ab Designhar[employer]angua Online message Advised patient to continue current weekly dose as noted above Next lab INR check scheduled on 01/17/2022 Senia Phillips RPh Clinical Pharmacist, Pharmacy Anticoagulation Clinic Pharmacy Anticoagulation Clinic Pager: [phone]. documented in this encounterWood County Hospital10-14-2022 Miscellaneous Notes* Telephone Encounter - Marta Palacio Ma - 01/03/2022 10:49 AM EDT Pt notified of results via [employer]. Marta Palacio Ma * Telephone Encounter - Stas Mora MD - 01/02/2022 6:07 PM EDT Please notify patient that his thyroid ultrasound looks OK, the nodules are all small, appear normal, and do not need any further evaluation pr follow up. Stas Mora MD documented in this encounterWood County Hospital10-06-2022 History of Present illness Narrative* Stas Mora MD - 12/26/2021 11:20 AM EDT Chief Complaint Patient presents with: Hospital F/U [facility] Roby Flores is a 86 year [...] about 1-2 hours. Pt was admitted to [facility] ER 12/21/21 with stroke sx however sx [...] in the last year. Below copied from [facility] [employer]: HPI History of Present Illness Chief Complaint: [...] extremities. He has 5 out of 5 ladle cleaner strength bilaterally. Dorsi and plantar flexion intact. [...] Chronic anticoagulation: Status: Acute Code(s): Z79.01 - watermelon inspector (current) use of anticoagulants Medications at Discharge [...] symptoms resolved. Hospital Course: 1. TIA/paroxysmal A. [id number]-old male presented with right-sided weakness and aphasia, [...] Coronary atherosclerosis of unspecified type of vessel, [place] or graft Coronary artery disease Other and [...] 12/06/2024 ADVANCE DIRECTIVE DISCUSSION Completed Data reviewed [facility] reports from 10/21/21-10/22/21 ASSESSMENT/PLAN: 1. Hospital discharge [...] unspecified vessel or lesion type, unspecified whether [place] or transplanted heart - ICD9: 414.00, ICD10: I25.10 Continue current medications. Follow up in [facility] as scheduled with fasting labs prior. I agree with the Chief Complaint, ROS, and Past Histories independently gathered by the clinical it support analyst and the remaining scribed note accurately describes [...] AM. Marta Palacio Ma documented in this encounterWood County Hospital09-30-2022 Miscellaneous Notes* Telephone Encounter - Senia Phillips [facility] - 12/20/2021 4:39 PM EDT [facility] Anticoagulation Episode Summary Anticoagulation Care Providers Provider Role Specialty Phone number Stas Mora MD Referring Family Medicine [phone] Roby Flores is a 86 year old year old male patient being evaluated today for a Telemanagement visit. Patient is currently on the following anticoagulant(s) Warfarin. Labs PT INR (no units) Date Value 05/15/2021 2.3 04/17/2021 1.9 03/13/2021 Test sent to [facility]. INR (no units) Date Value [...] ALLERGIES No Known Allergies Indication for Warfarin: 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 Paroxysmal atrial fibrillation (hcc) Anticoagulation Episode Summary Current INR goal: 2.0-3.0 Assessment: INR result of 2.1 is therapeutic Plan: Current Warfarin Dosing As of 12/20/2021 Full warfarin instructions: 2.5 mg every day Sent [facility] message Advised patient to continue current weekly dose as noted above Next lab INR check scheduled on 01/03/2022 Senia Phillips RPh Clinical Pharmacist, Pharmacy Anticoagulation Clinic Pharmacy Anticoagulation Clinic Pager: [phone]. documented in this encounterWood County Hospital09-16-2022 Miscellaneous Notes* Telephone Encounter - Senia Phillips RPh - 12/06/2021 4:29 PM EDT [facility] Anticoagulation Episode Summary Anticoagulation Care Providers Provider Role Specialty Phone number Stas Mora MD Referring [facility] [phone] Roby Flores is a 86 year old year old male patient being evaluated today for a Telemanagement visit. Patient is currently on the following anticoagulant(s) Warfarin. Labs PT INR (no units) Date Value 05/15/2021 2.3 04/17/2021 1.9 03/13/2021 Test sent to [facility]. INR (no units) Date Value [...] ALLERGIES No Known Allergies Indication for Warfarin: 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 Paroxysmal atrial fibrillation [...] Pharmacy Anticoagulation Clinic Pharmacy Anticoagulation Clinic Pager: [phone]. documented in this encounterWood County Hospital09-02-2022 Miscellaneous Notes* Telephone Encounter - Janice Huang RPh - 11/22/2021 5:17 PM EDT [facility] Anticoagulation Episode Summary Anticoagulation Care Providers Provider Role Specialty Phone number Stas Mora MD Referring [facility] [phone] Roby Flores is a 86 year old year old male patient being evaluated today for a Telemanagement visit. Patient is currently on the following anticoagulant(s) Warfarin. Labs PT INR (no units) Date Value 05/15/2021 2.3 04/17/2021 1.9 03/13/2021 Test sent to [facility]. INR (no units) Date Value [...] Advised pt to Call Coumadin Clinic at [phone] to confirm dosing and follow-up Janice Huang [facility] Clinical Pharmacist, Pharmacy Anticoagulation Clinic Pharmacy Anticoagulation Clinic Pager: [phone]. documented in this encounterWood County Hospital08-19-2022 Miscellaneous Notes* Telephone Encounter - Senia Phillips RPh - 11/08/2021 5:01 PM EDT [facility] Anticoagulation Episode Summary Anticoagulation Care Providers Provider Role Specialty Phone number Stas Mora MD Referring [facility] [phone] Roby Flores is a 86 year old year old male patient being evaluated today for a Telemanagement visit. Patient is currently on the following anticoagulant(s) Warfarin. Labs PT INR (no units) Date Value 05/15/2021 2.3 04/17/2021 1.9 03/13/2021 Test sent to [facility]. INR (no units) Date Value [...] ALLERGIES No Known Allergies Indication for Warfarin: 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 Paroxysmal atrial fibrillation (hcc) Anticoagulation Episode Summary Current INR goal: 2.0-3.0 Assessment: INR result of 2.8 is therapeutic Plan: Current Warfarin Dosing As of 11/08/2021 Full warfarin instructions: 2.5 mg every day Sent [facility] message Advised patient to continue current weekly dose as noted above Next lab INR check scheduled on 11/22/2021 Senia Phillips RPh Clinical Pharmacist, Pharmacy Anticoagulation Clinic Pharmacy Anticoagulation Clinic Pager: [phone]. documented in this encounterWood County Hospital08-05-2022 Miscellaneous Notes* Telephone Encounter - Janice Huang RPh - 10/25/2021 4:16 PM EDT [facility] Anticoagulation Episode Summary Anticoagulation Care Providers Provider Role Specialty Phone number Stas Mora MD Referring [facility] [phone] Roby Flores is a 86 year old year old male patient being evaluated today for a Telemanagement visit. Patient is currently on the following anticoagulant(s) Warfarin. Labs PT INR (no units) Date Value 05/15/2021 2.3 04/17/2021 1.9 03/13/2021 Test sent to [facility]. INR (no units) Date Value [...] Pharmacy Anticoagulation Clinic Pharmacy Anticoagulation Clinic Pager: [phone] . documented in this encounterWood [facility]07-[facility]22 Miscellaneous Notes* Telephone Encounter - Elana Campbell (Tongue Trimmer) - 09/27/2021 4:50 PM EDT PATIENT CALL Patient called call center regarding results. Patient called and stated he had his INR checked today (09/27) and it was 2.3. Patient can be called at [phone] with any questions or sent MC message if result is within range. PT INR (no units) Date Value 05/15/2021 2.3 04/17/2021 1.9 03/13/2021 Test sent to [facility]. INR (no units) Date Value 09/27/2021 2.3 09/13/2021 2.7 08/30/2021 2.1 Elana Campbell (Tongue Trimmer) * Telephone Encounter - Yomi Wills RPh - 09/27/2021 6:28 AM EDT Patient due to test INR today. Will continue to monitor for results. Yomi Wills RP documented in this encounterWood [facility] Hospital06-24-2022 Miscellaneous Notes* Telephone Encounter - Senia Phillips RP - 09/13/2021 4:11 PM EDT [facility] Anticoagulation Episode Summary Anticoagulation Care Providers Provider Role Specialty Phone number Stas Mora MD Referring [facility] [phone] Roby Flores is a 86 year old year old male patient being evaluated today for a Telemanagement visit. Patient is currently on the following anticoagulant(s) Warfarin. Labs PT INR (no units) Date Value 05/15/2021 2.3 04/17/2021 1.9 03/13/2021 Test sent to [facility]. INR (no units) Date Value [...] ALLERGIES No Known Allergies Indication for Warfarin: 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 Paroxysmal atrial fibrillation (hcc) Anticoagulation Episode Summary Current INR goal: 2.0-3.0 Assessment: INR result of 2.7 is therapeutic Plan: Sent [facility] message Advised patient to continue current weekly dose Next lab INR check scheduled on 09/27/2021 Senia Phillips RPh Clinical Pharmacist, Pharmacy Anticoagulation Clinic Pharmacy Anticoagulation Clinic Pager: [phone] . documented in this encounterWood County Hospital06-16-2022 History of Present illness Narrative* Stas Mora MD - 09/05/2021 11:20 AM EDT Medical B eligibilty date 1999 Date of last exam 08/28/2020 PAST MEDICAL HISTORY Diagnosis Date Coronary atherosclerosis of unspecified type of vessel, [place] or graft Coronary artery disease Other and [...] every 6 months. Pt follows with [facility] for Coumadin management. Pt denies any other Specialist. End of Live Planning discussed including patients advanced directive wishes: Yes has both. Daughteris his POA. I am willing to follow [place] advanced directives. Depression screen He in the [...] to remember the following three words: Banana, Casey and Chair Visuospatial/Executive Functioning: Clock drawin/2 (Normal [...] Histories independently gathered by the clinical it support analyst and the remaining scribed note accurately describes my personal service to the patient. Stas Mora MD The documentation for this note was completed by Rosie Cruz Ma acting as scribe for Stas Mora MD. September 05, 2021 11:33 AM. Rosie Cruz Ma documented in this encounterWood County Hospital06-10-2022 Miscellaneous Notes* Telephone Encounter - Senia Phillips [facility] - 08/30/2021 5:10 PM EDT [facility] Anticoagulation Episode Summary Anticoagulation Care Providers Provider Role Specialty Phone number Stas Mora MD Referring [facility] [phone] Roby Flores is a 86 year old year old male patient being evaluated today for a Telemanagement visit. Patient is currently on the following anticoagulant(s) Warfarin. Labs PT INR (no units) Date Value 05/15/2021 2.3 04/17/2021 1.9 03/13/2021 Test sent to [facility]. INR (no units) Date Value [...] result of 2.1 is therapeutic Plan: Sent [facility] message Advised patient to continue current weekly dose Next lab INR check scheduled on 09/13/2021 Senia Phillips RPh Clinical Pharmacist, Pharmacy Anticoagulation Clinic Pharmacy Anticoagulation Clinic Pager: [phone] . documented in this encounterWood County Hospital06-10-2022 Miscellaneous Notes* Telephone Encounter - Jenna Fitzpatrick APRN.CNP - 08/30/2021 8:56 AM EDT Needs order for PT/INR, order signed. Jenna Fitzpatrick APRN.CNP documented in this encounterWood County Hospital05-27-2022 Miscellaneous Notes* Telephone Encounter - Rosie Cruz Ma - 08/16/2021 2:18 PM EDT INR has been reviewed in another encounter. Rosie Cruz Ma documented in this encounterWood County Hospital05-13-2022 Miscellaneous Notes* Telephone Encounter - Senia Phillips RPh - 08/02/2021 4:11 PM EDT [facility] Anticoagulation Episode Summary Anticoagulation Care Providers Provider Role Specialty Phone number Stas Mora MD Referring [facility] [phone] Roby Flores is a 85 year old year old male patient being evaluated today for a Telemanagement visit. Patient is currently on the following anticoagulant(s) Warfarin. Labs PT INR (no units) Date Value 05/15/2021 2.3 04/17/2021 1.9 03/13/2021 Test sent to [facility]. INR (no units) Date Value [...] Pharmacy Anticoagulation Clinic Pharmacy Anticoagulation Clinic Pager: [phone] . documented in this encounterWood County Hospital04-27-2022 Miscellaneous Notes* Telephone Encounter - Rosie [...] months Stas Mora MD documented in this encounterWood County Hospital04-25-2022 Miscellaneous Notes* Telephone Encounter - Elvis Kearney APRN.ARCHAEOLOGY PROFESSOR - 07/15/2021 12:39 PM EDT The following approved medication requests have been transmitted electronically. Pending Prescriptions Disp Refills WARFARIN 2.5 MG TABLET 135 tablet 3 Sig: TAKE 5 MG EVERY MON, DIXIE 2.5 MG ALL OTHER DAYS MESFIN: No Elvis Kearney APRN.ARCHAEOLOGY PROFESSOR documented in this encounterWood County Hospital04-18-2022 History of Present illness Narrative* Stas [...] SOB. No swelling in feet orankles. 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 Taking Fosinopril 10 mg daily. Lipid: [...] Coronary atherosclerosis of unspecified type of vessel, [place] or graft Coronary artery disease Other and [...] unspecified vessel or lesion type, unspecified whether [place] or transplanted heart - ICD9: 414.00, ICD10: [...] Histories independently gathered by the clinical it support analyst and the remaining scribed note accurately describes [...] AM. Marta Palacio Ma documented in this encounterWood County Hospital04-13-2022 Miscellaneous Notes* Telephone Encounter - Coretta Jalloh [facility] - 07/03/2021 3:40 PM EDT [facility] Anticoagulation Episode Summary Anticoagulation Care Providers Provider Role Specialty Phone number Stas Mora MD Referring [facility] [phone] Roby Flores is a 85 year old year old male patient being evaluated today for a Lab INR. Patient is currently on the following anticoagulant(s) Warfarin. Labs PT INR (no units) Date Value 05/15/2021 2.3 04/17/2021 1.9 03/13/2021 Test sent to [facility]. INR (no units) Date Value [...] Pharmacy Anticoagulation Clinic Pharmacy Anticoagulation Clinic Pager: [phone] . * Telephone Encounter - Marta Palacio Ma - 07/03/2021 3:05 PM EDT INR 4.5. Results routed to pharmacist who Handles pt coumadin. Marta Palacio Ma documented in this encounterWood County Hospital03-23-2022 Miscellaneous Notes* Telephone Encounter - Coretta Jalloh RPh - 06/12/2021 3:20 PM EDT [facility] Anticoagulation Episode Summary Anticoagulation Care Providers Provider Role Specialty Phone number Stas Mora MD Referring [facility] [phone] Roby Flores is a 85 year old year old male patient being evaluated today for a Lab INR. Patient is currently on the following anticoagulant(s) Warfarin. Labs PT INR (no units) Date Value 05/15/2021 2.3 04/17/2021 1.9 03/13/2021 Test sent to [facility]. INR (no units) Date Value [...] lab INR check scheduled on 07/03 in [place]. Patient verbalizes understanding of the plan. Patient denies need for refills. Coretta Jalloh RPh Clinical Pharmacist, Pharmacy Anticoagulation Clinic Pharmacy Anticoagulation Clinic Pager: [phone] . * Telephone Encounter - Rosie Cruz Ma - 06/12/2021 3:08 PM EDT Pt's INR results have finalized. Routing to pharm to review and advise. Rosie Cruz Ma documented in this encounterWood County Hospital12-21-2020 History of Present illness Narrative* Hussein [...] 12, 2020 5:01 PM documented in this encounterStephensport ClinicDischarge summary Author Inderjit Gillespie [facility] Note Date/Time September 01, 2024 10:2 5am [facility] Medical Records Department [address] [place] [address] Emergency Department Summary 09/01/24 MR#: [id number] Acct: [id number] Name: ROBY FLORES Rep #:[id number] : [...] similar symptoms: No Recent Illness/Hospitalization: No [facility] Medical History Chronic anticoagulation TIA (transient [...] shoulders elbows and wrist. 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 Neurologically he is awake alert. Answering [...] 87.5 H Lymph % (Auto) 4.8 L Swain % (Auto) 5.7 Eos % (Auto) 1.2 [...] Clarity Clear Urine pH 8.[address] 1[address]010 Urine Protein 15 H Urine Glucose [...] No fracture or dislocation present. Reading Location: [facility] 09/01/24 09:05 IMPRESSION: Cerebral atrophy. Mucosal thickening of the ethmoid sinuses as well as opacification of the left maxillary sinus. Reading Location: [facility] Chest X-Ray 09/01/24 09:25 IMPRESSION: No acute abnormality is seen. Reading Location: [facility] Chest x-ray, 2 views, AP and [...] to thrive Disposition Disposition: Acute Care Hospital [facility] What to do if you have Problems For any increased pain, shortness of breath, bleeding, nausea or vomiting, chestpain, or any unexpected problems, contact your Primary Care Provider. Call [facility] ([phone]) or report to the closest Emergency Room. Call 911 if necessary. 09/01/24 1025 <Electronically signed by Inderjit Gillespie MD> Cosigner Signature (if applicable): CC: Dr. Stas Mora MD ~ Signed [facility] Work Phone: Evaluation + Plan note No data available for this section [facility]* 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 Long-term (current) use of anticoagulants Paroxysmal atrial fibrillation (HCC) Atrial fibrillation documented in this encounter [facility]* Diagnosis assisted current use of anticoagulant- Primary Long-term (current) use of anticoagulants Paroxysmal atrial fibrillation (HCC) Atrial fibrillation documented in this encounter [facility]* Diagnosis Essential hypertension, benign- Primary Atherosclerosis 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, unspecified vessel or lesion type, unspecified whether [place] or transplanted heart Paroxysmal atrial fibrillation (HCC) Atrial fibrillation Primary osteoarthritis of both knees Primary localized osteoarthrosis, lower leg documented in this encounter [facility]* Diagnosis Atherosclerosis 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, unspecified vessel or lesion type, unspecified whether [place] or transplanted heart- Primary Essential hypertension, benign [facility]* Diagnosis assisted current use of anticoagulant- Primary Long-term (current) use of anticoagulants Paroxysmal atrial fibrillation (HCC) Atrial fibrillation [facility]* Diagnosis Elevated INR- Primary Abnormal coagulation profile [facility]* 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 Long-term (current) use of anticoagulants Paroxysmal atrial fibrillation (HCC) Atrial fibrillation documented in this encounter [facility]* Diagnosis Encounter for Medicare annual wellness exam- Primary Routine general medical examination at a [facility] Paroxysmal atrial fibrillation (HCC) Atrial fibrillation Essential hypertension, benign [facility]* Diagnosis assisted current use of anticoagulant- Primary Long-term (current) use of anticoagulants Encounter for monitoring Coumadin therapy Encounter for therapeutic drug monitoring documented in this encounter [facility] note* 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 Long-term (current) use of anticoagulants Paroxysmal atrial fibrillation (HCC) Atrial fibrillation [facility]* 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 Long-term (current) use of anticoagulants Paroxysmal atrial fibrillation (HCC) Atrial fibrillation documented in this encounter [facility]* Diagnosis Onset Date Resolution Status Chronic anticoagulation acut e TIA (transient ischemic attack) acute CAD (coronary artery disease) [facility] Work Phone: Evaluation note* Diagnosis Onset Date Resolution Status Chronic anticoagulation acut e Stroke-like symptoms acute TIA (transient ischemic attack) acute CAD (coronary artery disease) [facility] Work Phone: Evaluation note* Diagnosis Hospital discharge follow-up- Primary Other follow-up examination Encounter for immunization Need for other specified prophylactic vaccination against single bacterial disease TIA (transient ischemic attack) Unspecified transient cerebral ischemia Thyroid nodule Nontoxic uninodular goiter Essential hypertension, benign Paroxysmal atrial fibrillation (HCC) Atrial fibrillation Atherosclerosis 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, unspecified vessel or lesion type, unspecified whether [place] or transplanted heart documented in this encounter [facility]* 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 Long-term (current) use of anticoagulants Paroxysmal atrial fibrillation (HCC) Atrial fibrillation documented in this encounter [facility]* 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 Long-term (current) use of anticoagulants Paroxysmal atrial fibrillation (HCC) Atrial fibrillation [facility]* Diagnosis assisted current use of anticoagulant- Primary Long-term (current) use of anticoagulants Paroxysmal atrial fibrillation (HCC) Atrial fibrillation [facility]* Diagnosis Encounter for Medicare annual wellness exam- Primary Routine general medical examination at a [facility] Paroxysmal atrial fibrillation (HCC) Atrial fibrillation Essential hypertension, benign Hyperlipidemia, unspecified hyperlipidemia type documented in this encounter [facility]* 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 Long-term (current) use of anticoagulants Paroxysmal atrial fibrillation (HCC) Atrial fibrillation [facility]* Diagnosis assisted current use of anticoagulant- Primary Long-term (current) use of anticoagulants Paroxysmal atrial fibrillation (HCC) Atrial fibrillation [facility]* Diagnosis assisted current use of anticoagulant- Primary Long-term (current) use of anticoagulants Paroxysmal atrial fibrillation (HCC) Atrial fibrillation [facility]* 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 Long-term (current) use of anticoagulants Paroxysmal atrial fibrillation (HCC) Atrial fibrillation documented in this encounter [facility] noteNo assessment information availableWMarymount Hospital Work Phone: Evaluation note* 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 Long-term (current) use of anticoagulants Paroxysmal atrial fibrillation (HCC) Atrial fibrillation [facility]* Diagnosis Cerebral infarction, unspecified mechanism (HCC)- Primary Generalized weakness Other malaise and fatigue Speech disturbance, unspecified type Hyperlipidemia, unspecified hyperlipidemia type Essential hypertension, benign Paroxysmal atrial fibrillation (HCC) Atrial fibrillation documented in this encounter [facility]* Diagnosis Cerebral infarction, unspecified mechanism (HCC) documented in this encounter [facility]* Diagnosis assisted current use of anticoagulant- Primary Long-term (current) use of anticoagulants Paroxysmal atrial fibrillation (HCC) Atrial fibrillation documented in this encounter [facility]* Diagnosis Essential hypertension, benign- Primary Paroxysmal atrial fibrillation (HCC) Atrial fibrillation Atherosclerosis 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, unspecified vessel or lesion type, unspecified whether [place] or transplanted heart Hyperlipidemia, unspecified hyperlipidemia type History of stroke with 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 Speech disturbance, unspecified type documented in this encounter [facility]* Diagnosis Abnormal CBC- Primary Other abnormal blood chemistry documented in this encounter [facility]* 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 Long-term (current) use of anticoagulants Paroxysmal atrial fibrillation (HCC) Atrial fibrillation documented [facility] this encounter [facility]* 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 Long-term (current) use of anticoagulants Paroxysmal atrial fibrillation (HCC) Atrial fibrillation documented in this encounter [facility]* 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 Long-term (current) use of anticoagulants Paroxysmal atrial fibrillation (HCC) Atrial fibrillation documented in this encounter [facility]* Diagnosis assisted current use of anticoagulant- Primary Long-term (current) use of anticoagulants Paroxysmal atrial fibrillation (HCC) Atrial fibrillation documented in this encounter [facility]* Diagnosis 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, psychotic disturbance, mood disturbance, or anxiety (HCC)- Primary Essential hypertension, benign Paroxysmal atrial fibrillation (HCC) Atrial fibrillation documented in this encounter [facility]* Diagnosis Edema of both lower legs- Primary documented in this encounter [facility]* 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 Long-term (current) use of anticoagulants Paroxysmal atrial fibrillation (HCC) Atrial fibrillation documented in this encounter [facility]* 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 Long-term (current) use of anticoagulants Paroxysmal atrial fibrillation (HCC) Atrial fibrillation documented in this encounter [facility]* Diagnosis Essential hypertension, benign- Primary Hyperlipidemia, unspecified hyperlipidemia type Edema of both lower legs Paroxysmal atrial fibrillation (HCC) Atrial fibrillation History of stroke with 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, psychotic disturbance, mood disturbance, or anxiety (HCC) Urinary frequency Abnormal CBC Other abnormal blood chemistry [facility] encounter [facility]* Diagnosis assisted current use of anticoagulant- Primary Long-term (current) use of anticoagulants Paroxysmal atrial fibrillation (HCC) Atrial fibrillation documented [facility] this encounter [facility]* Diagnosis assisted current use of anticoagulant- Primary Long-term (current) use of anticoagulants Paroxysmal atrial fibrillation (HCC) Atrial fibrillation documented in this encounter [facility]* Diagnosis Left hip pain Pain in joint, pelvic region and thigh documented in this encounter [facility]* Diagnosis assisted current use of anticoagulant- Primary Long-term (current) use of anticoagulants Paroxysmal atrial fibrillation (HCC) Atrial fibrillation documented [facility] this encounter [facility]* Diagnosis Acute right-sided low back pain, unspecified whether sciatica present documented in this encounter [facility]* Diagnosis Paroxysmal atrial fibrillation (HCC)- Primary Atrial fibrillation documented in this encounter [facility]* 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 Long-term (current) use of anticoagulants Paroxysmal atrial fibrillation (HCC) Atrial fibrillation [facility] this encounter [facility]* 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 Long-term (current) use of anticoagulants Paroxysmal atrial fibrillation (HCC) Atrial fibrillation documented in this encounter [facility]* Diagnosis Dementia, unspecified dementia severity, unspecified dementia type, unspecified whether behavioral, psychotic, or mood disturbance or anxiety (HCC)- Primary documented in this encounter [facility]* 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 Long-term (current) use of anticoagulants Paroxysmal atrial fibrillation (HCC) Atrial fibrillation documented in this encounter [facility]* Diagnosis Dementia, unspecified dementia severity, unspecified [...] and musculoskeletal systems documented in this encounter [facility]* Diagnosis Cognitive impairment, mild, so stated Mild cognitive impairment, so stated documented in this encounter [facility]* Diagnosis Essential hypertension, benign- Primary Hyperlipidemia, unspecified hyperlipidemia type Atherosclerosis 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, unspecified vessel or lesion type, unspecified whether [place] or transplanted heart Paroxysmal atrial fibrillation (HCC) Atrial fibrillation Edema of both lower legs History of stroke with 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 Dementia, unspecified dementia severity, unspecified dementia type, unspecified whether behavioral, psychotic, or mood disturbance or anxiety (HCC) [facility] 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) Paralysis agitans [facility] Diagnosis Bursitis of right elbow, unspecified bursa- Primary [facility] Diagnosis Moderate dementia without behavioral disturbance, psychotic disturbance, mood disturbance, or anxiety, unspecified dementia type (HCC)- Primary Hallucinations Screening for depression Encounter for screening examination for other mental health and behavioral disorders documented in this encounter [facility] for referral (narrative)* Diagnostic Procedure Only (Routine) - Authorized Specialty Diagnoses / Procedures Referred By Contac t Referred To Contact US IMAGING Diagnoses Thyroid nodule Procedures US THYROID/PARATHYROID US SOFT TISSUE HEAD & NECK REAL TIME IMGE Stas Queen MD [address] [place] [address] Us Imaging Referral ID Status Reason Start Date Expiration Date Visits Requested Visits Authorized [id number] Authorized Auto-Generat ed Referral 12/26/2021 01/25/2023 1 1 [facility] for referral (narrative)* Diagnostic Procedure Only (Urgent) - Closed Specialty Diagnoses / Procedures Referred By Contac t Referred To Contact XR IMAGING Diagnoses Left hip pain Procedures XR HIP GENERAL 3V PELV/AP/LAT LEFT RADEX HIP UNILATERAL WITH PELVIS 2-3 VIEWS Jenna Fitzpatrick, JETHRO.ARCHAEOLOGY PROFESSOR [address] [place] [address] [place] [address] Referral ID Status Reason Start Date Expiration Date V isits Requested Visits Authorized [id number] Closed Auto-Generate d Referral 05/21/2022 06/20/2023 1 1 [facility] for referral (narrative)No reason for referral information [facility]WM[facility] Work Phone: Reason for visit Narrative* Diagnostic Procedure Only (Urgent) - Closed Specialty Diagnoses / Procedures Referred By Contac t Referred To Contact XR IMAGING Diagnoses Left hip pain Procedures XR HIP GENERAL 3V PELV/AP/LAT LEFT RADEX HIP UNILATERAL WITH PELVIS 2-3 VIEWS Jenna Fitzpatrick, JETHRO.ARCHAEOLOGY PROFESSOR [address] [place] [address] [place] [address] Referral ID Status Reason Start Date Expiration Date V isits Requested Visits Authorized [id number] Closed Auto-Generate d Referral 05/21/2022 06/20/2023 1 1 [facility]/CT (Routine) - Closed Specialty Diagnoses / Procedures Referred By Jennifer t Referred To Contact MR IMAGING Diagnoses Cognitive impairment, mild, so stated Procedures MRI BRAIN W QUANT WO IVCON MRI BRAIN BRAIN STEM W/O CONTRAST MATERIAL Luciana Cisneros MD [address] [place] [address] Phone: tel: fax: [id number] [id number] Referral ID Status Reason Start Date Expiration Date V isits Requested Visits Authorized [id number] Closed Auto-Generate d Referral 05/11/2024 07/10/2024 1 1 [facility] Summary Purpose Family History No Family [...] Will Yes December 21 6:17pm Power of Director Organizational Yes December 21 022 6:17pm Name of Medical Power of Director Organizational IRAJ HULL , DAUGHTER December 21, 2021 6:17pm Advance Directive Response Recorded Date/ Time Name of Medical Power of Director Organizational Anabella Hull December 21, 2021 8:06pm Living Will Yes December 21 8:06pm Power of Director Organizational Yes December 21 8:06pm Advance Directive Response Recorded Date/ Time Living Will Yes February 10, 023 3:17pm Power of Director Organizational Yes February 10, 2023 3:17pm Name of Medical Power of Director Organizational daughter-yomi hull February 10, 2023 3:17pm Advance Directive Response Recorded Date/ Time Do you have a Healthcare Power of Director Organizational? Yes September 01, 2024 7:36am Name of Medical Power of Director Organizational anabella hull September 01, 2024 7:36am Advance Directive Response Recorded Date/ Time Do you have a Healthcare Power of Director Organizational? Yes September 01, 2024 12:00pm Name of Medical Power of Director Organizational anabella hull September 01, 2024 12:00pm Chief [...] LAB WORK September 28, 2024 5:00a m [facility] LAB WORK September 29, 2024 5: 00am Admission H&P Exam September 30, 2024 5:50 pm [facility] LAB WORK October 05, 2024 5: 00am [facility] LAB WORK October 06, 2024 5: 00am [...] LAB WORK September 28, 2024 5:00a m [facility] LAB WORK September 29, 2024 5: 00am Admission H&P Exam September 30, 2024 5:50 pm [facility] LAB WORK October 05, 2024 5: 00am [facility] LAB WORK October 06, 2024 5: 00am [...] LAB WORK September 28, 2024 5:00a m [facility] LAB WORK September 29, 2024 5: 00am Admission H&P Exam September 30, 2024 5:50 pm [facility] LAB WORK October 05, 2024 5: 00am [facility] LAB WORK October 06, 2024 5: 00am [...] LAB WORK September 28, 2024 5:00a m [facility] LAB WORK September 29, 2024 5: 00am Admission H&P Exam September 30, 2024 5:50 pm [facility] LAB WORK October 05, 2024 5: 00am [facility] LAB WORK October 06, 2024 5: 00am [...] LAB WORK September 28, 2024 5:00a m [facility] LAB WORK September 29, 2024 5: 00am Admission H&P Exam September 30, 2024 5:50 pm [facility] LAB WORK October 05, 2024 5: 00am [facility] LAB WORK October 06, 2024 5: 00am New Concern October 20, 2024 2:54 pm ADMISSION, H&P October 25, 2024 2:2 2pm LABWORK October 31, 2024 5: 00am LABWORK November 02, 2024 5: 00am [facility] LAB WORK November 23 5:00am ADMISSION H&P EXAM BY ECOLOGICAL ECONOMIST November 24, 2024 3:34pm LABWORK November 25, 2024 5:00am ADMISSION H&P/MONTHLY EXAM November 1:06pm [facility] LAB WORK November 30 5:00am [facility] LAB WORK December 14 5:35am [facility] LAB WORK December 21, 2024 5:45am Reason for Referral Specialty Diagnoses / Procedures Referred By Jennifer gomez Referred To Contact [facility] Diagnoses Shuffling gait Ambulatory dysfunction Balance disorder Procedures CONSULT TO PHYSICAL THERAPY PHYSICAL THERAPY EVALUATION HIGH COMPLEX 45 MINS Luciana Cisneros MD [address] [place] [id number] [facility] [place] [address] [place] [address] Referral ID Status Reason Start Date Expiration Date Visits Requested Visits Authorized [id number] Pending Review Auto-Generat ed Referral 04/27/2024 04/27/2025 1 1 Specialty Diagnoses / Procedures Referred By Jennifer gomez Referred To Contact MR IMAGING Diagnoses Cognitive impairment, mild, so stated Procedures MRI BRAIN W QUANT WO IVCON MRI BRAIN BRAIN STEM W/O CONTRAST MATERIAL Luciana Cisneros MD [facility] [place] [address] [id number] Referral ID Status Reason Start Date Expiration Date Visits Requested Visits Authorized [id number] Pending Review Auto-Generat ed Referral 04/27/2024 05/27/2025 1 1 Specialty Diagnoses / Procedures Referred By Contac t Referred To Contact Gerontology Diagnoses Dementia, unspecified dementia severity, unspecified dementia type, unspecified whether behavioral, psychotic, or mood disturbance or anxiety (HCC) Procedures CONSULT TO GERIATRICS OFFICE/OUTPATIENT [facility] 60 MINUTES Stas Mora MD [address] [place] [address] Referral ID Status Reason Start Date Expiration Date Visits Requested Visits Authorized [id number] Authorized PCP Requested Referral 04/25/2024 04/25/2025 1 1 Specialty Diagnoses / Procedures Referred By Contac t Referred To Contact MR IMAGING Diagnoses Cerebral infarction, unspecified mechanism (HCC) Procedures MRI BRAIN WO IVCON MRI BRAIN BRAIN STEM W/O CONTRAST MATERIAL Stas Mora MD [address] [place] [address] Mr Imaging [id number] Referral ID Status Reason Start Date Expiration Date Visits Requested Visits Authorized [id number] Pending Review Auto-Genera eli Referral Patient Cleared [...] DATE CREATED AUTHOR AUTHOR'S ORGANIZ ATION 09/11/2017 [facility] DATE CREATED AUTHOR AUTHOR'S ORGANIZ ATION 09/15/2017 [facility] DATE CREATED AUTHOR AUTHOR'S ORGANIZ ATION 08/12/2023 [facility] ([place]) DATE CREATED AUTHOR AUTHOR'S ORGANIZ ATION 05/24/2024 [facility] DATE CREATED AUTHOR AUTHOR'S ORGANIZ ATION 01/21/2025 [facility] DATE CREATED AUTHOR AUTHOR'S ORGANIZ ATION 01/23/2025 [facility] Source Comments (unrecognize d section and content) In the event this informatio n is protected by the Federal Confidentiality of Alcohol and Drug Abuse Patient Records regulations: The Federal rules restrict any use of the information to criminally investigate or prosecute any alcohol or drug abuse patient.[facility] the event this information is protected by the Federal Confidentiality of Alcohol and Drug Abuse Patient Records regulations: The Federal rules restrict any use of the information to criminally investigate or prosecute any alcohol or drug abuse patient.[facility] HospitalIn the event this information is protected by the Federal Confidentiality of Alcohol and Drug Abuse Patient Records regulations: The Federal rules restrict any use of the information to criminally investigate or prosecute any alcohol or drug abuse patient.[facility]In the event this information is protected by the Federal Confidentiality of Alcohol and Drug Abuse Patient Records regulations: The Federal rules restrict any use of the information to criminally investigate or prosecute any alcohol or drug abuse patient.[facility] HospitalIn the event this information is protected by the Federal Confidentiality of Alcohol and Drug Abuse Patient Records regulations: The Federal rules restrict any use of the information to criminally investigate or prosecute any alcohol or drug abuse patient.[facility] HospitalIn the event this information is protected by the Federal Confidentiality of Alcohol and Drug Abuse Patient Records regulations: The Federal rules restrict any use of the information to criminally investigate or prosecute any alcohol or drug abuse patient.[facility] HospitalIn the event this information is protected by the Federal Confidentiality of Alcohol and Drug Abuse Patient Records regulations: The Federal rules restrict any use of the information to criminally investigate or prosecute any alcohol or drug abuse patient.[facility] HospitalIn the event this information is protected by the Federal Confidentiality of Alcohol and Drug Abuse Patient Records regulations: The Federal rules restrict any use of the information to criminally investigate or prosecute any alcohol or drug abuse patient.[facility] HospitalIn the event this information is protected by the Federal Confidentiality of Alcohol and Drug Abuse Patient Records regulations: The Federal rules restrict any use of the information to criminally investigate or prosecute any alcohol or drug abuse patient.[facility] HospitalIn the event this information is protected by the Federal Confidentiality of Alcohol and Drug Abuse Patient Records regulations: The Federal rules restrict any use of the information to criminally investigate or prosecute any alcohol or drug abuse patient.[facility] HospitalIn the event this information is protected by the Federal Confidentiality of Alcohol and Drug Abuse Patient Records regulations: The Federal rules restrict any use of the information to criminally investigate or prosecute any alcohol or drug abuse patient.[facility] HospitalIn the event this information is protected by the Federal Confidentiality of Alcohol and Drug Abuse Patient Records regulations: The Federal rules restrict any use of the information to criminally investigate or prosecute any alcohol or drug abuse patient.[facility] HospitalIn the event this information is protected by the Federal Confidentiality of Alcohol and Drug Abuse Patient Records regulations: The Federal rules restrict any use of the information to criminally investigate or prosecute any alcohol or drug abuse patient.[facility] HospitalIn the event this information is protected by the Federal Confidentiality of Alcohol and Drug Abuse Patient Records regulations: The Federal rules restrict any use of the information to criminally investigate or prosecute any alcohol or drug abuse patient.[facility] HospitalIn the event this information is protected by the Federal Confidentiality of Alcohol and Drug Abuse Patient Records regulations: The Federal rules restrict any use of the information to criminally investigate or prosecute any alcohol or drug abuse patient.[facility] HospitalIn the event this information is protected by the Federal Confidentiality of Alcohol and Drug Abuse Patient Records regulations: The Federal rules restrict any use of the information to criminally investigate or prosecute any alcohol or drug abuse patient.[facility] HospitalIn the event this information is protected by the Federal Confidentiality of Alcohol and Drug Abuse Patient Records regulations: The Federal rules restrict any use of the information to criminally investigate or prosecute any alcohol or drug abuse patient.[facility] HospitalIn the event this information is protected by the Federal Confidentiality of Alcohol and Drug Abuse Patient Records regulations: The Federal rules restrict any use of the information to criminally investigate or prosecute any alcohol or drug abuse patient.[facility] HospitalIn the event this information is protected by the Federal Confidentiality of Alcohol and Drug Abuse Patient Records regulations: The Federal rules restrict any use of the information to criminally investigate or prosecute any alcohol or drug abuse patient.[facility] HospitalIn the event this information is protected by the Federal Confidentiality of Alcohol and Drug Abuse Patient Records regulations: The Federal rules restrict any use of the information to criminally investigate or prosecute any alcohol or drug abuse patient.[facility] HospitalIn the event this information is protected by the Federal Confidentiality of Alcohol and Drug Abuse Patient Records regulations: The Federal rules restrict any use of the information to criminally investigate or prosecute any alcohol or drug abuse patient.[facility] HospitalIn the event this information is protected by the Federal Confidentiality of Alcohol and Drug Abuse Patient Records regulations: The Federal rules restrict any use of the information to criminally investigate or prosecute any alcohol or drug abuse patient.[facility] HospitalIn the event this information is protected by the Federal Confidentiality of Alcohol and Drug Abuse Patient Records regulations: The Federal rules restrict any use of the information to criminally investigate or prosecute any alcohol or drug abuse patient.[facility] HospitalIn the event this information is protected by the Federal Confidentiality of Alcohol and Drug Abuse Patient Records regulations: The Federal rules restrict any use of the information to criminally investigate or prosecute any alcohol or drug abuse patient.[facility] HospitalIn the event this information is protected by the Federal Confidentiality of Alcohol and Drug Abuse Patient Records regulations: The Federal rules restrict any use of the information to criminally investigate or prosecute any alcohol or drug abuse patient.[facility] HospitalIn the event this information is protected by the Federal Confidentiality of Alcohol and Drug Abuse Patient Records regulations: The Federal rules restrict any use of the information to criminally investigate or prosecute any alcohol or drug abuse patient.[facility] HospitalIn the event this information is protected by the Federal Confidentiality of Alcohol and Drug Abuse Patient Records regulations: The Federal rules restrict any use of the information to criminally investigate or prosecute any alcohol or drug abuse patient.[facility] HospitalIn the event this information is protected by the Federal Confidentiality of Alcohol and Drug Abuse Patient Records regulations: The Federal rules restrict any use of the information to criminally investigate or prosecute any alcohol or drug abuse patient.[facility] HospitalIn the event this information is protected by the Federal Confidentiality of Alcohol and Drug Abuse Patient Records regulations: The Federal rules restrict any use of the information to criminally investigate or prosecute any alcohol or drug abuse patient.[facility] HospitalIn the event this information is protected by the Federal Confidentiality of Alcohol and Drug Abuse Patient Records regulations: The Federal rules restrict any use of the information to criminally investigate or prosecute any alcohol or drug abuse patient.[facility] HospitalIn the event this information is protected by the Federal Confidentiality of Alcohol and Drug Abuse Patient Records regulations: The Federal rules restrict any use of the information to criminally investigate or prosecute any alcohol or drug abuse patient.[facility] HospitalIn the event this information is protected by the Federal Confidentiality of Alcohol and Drug Abuse Patient Records regulations: The Federal rules restrict any use of the information to criminally investigate or prosecute any alcohol or drug abuse patient.[facility] HospitalIn the event this information is protected by the Federal Confidentiality of Alcohol and Drug Abuse Patient Records regulations: The Federal rules restrict any use of the information to criminally investigate or prosecute any alcohol or drug abuse patient.[facility] HospitalIn the event this information is protected by the Federal Confidentiality of Alcohol and Drug Abuse Patient Records regulations: The Federal rules restrict any use of the information to criminally investigate or prosecute any alcohol or drug abuse patient.[facility] HospitalIn the event this information is protected by the Federal Confidentiality of Alcohol and Drug Abuse Patient Records regulations: The Federal rules restrict any use of the information to criminally investigate or prosecute any alcohol or drug abuse patient.[facility] HospitalIn the event this information is protected by the Federal Confidentiality of Alcohol and Drug Abuse Patient Records regulations: The Federal rules restrict any use of the information to criminally investigate or prosecute any alcohol or drug abuse patient.[facility] HospitalIn the event this information is protected by the Federal Confidentiality of Alcohol and Drug Abuse Patient Records regulations: The Federal rules restrict any use of the information to criminally investigate or prosecute any alcohol or drug abuse patient.[facility] HospitalIn the event this information is protected by the Federal Confidentiality of Alcohol and Drug Abuse Patient Records regulations: The Federal rules restrict any use of the information to criminally investigate or prosecute any alcohol or drug abuse patient.[facility] HospitalIn the event this information is protected by the Federal Confidentiality of Alcohol and Drug Abuse Patient Records regulations: The Federal rules restrict any use of the information to criminally investigate or prosecute any alcohol or drug abuse patient.[facility] HospitalIn the event this information is protected by the Federal Confidentiality of Alcohol and Drug Abuse Patient Records regulations: The Federal rules restrict any use of the information to criminally investigate or prosecute any alcohol or drug abuse patient.[facility] HospitalIn the event this information is protected by the Federal Confidentiality of Alcohol and Drug Abuse Patient Records regulations: The Federal rules restrict any use of the information to criminally investigate or prosecute any alcohol or drug abuse patient.[facility] HospitalIn the event this information is protected by the Federal Confidentiality of Alcohol and Drug Abuse Patient Records regulations: The Federal rules restrict any use of the information to criminally investigate or prosecute any alcohol or drug abuse patient.[facility] HospitalIn the event this information is protected by the Federal Confidentiality of Alcohol and Drug Abuse Patient Records regulations: The Federal rules restrict any use of the information to criminally investigate or prosecute any alcohol or drug abuse patient.[facility] HospitalIn the event this information is protected by the Federal Confidentiality of Alcohol and Drug Abuse Patient Records regulations: The Federal rules restrict any use of the information to criminally investigate or prosecute any alcohol or drug abuse patient.[facility] HospitalIn the event this information is protected by the Federal Confidentiality of Alcohol and Drug Abuse Patient Records regulations: The Federal rules restrict any use of the information to criminally investigate or prosecute any alcohol or drug abuse patient.[facility] HospitalIn the event this information is protected by the Federal Confidentiality of Alcohol and Drug Abuse Patient Records regulations: The Federal rules restrict any use of the information to criminally investigate or prosecute any alcohol or drug abuse patient.[facility] HospitalIn the event this information is protected by the Federal Confidentiality of Alcohol and Drug Abuse Patient Records regulations: The Federal rules restrict any use of the information to criminally investigate or prosecute any alcohol or drug abuse patient.[facility] HospitalIn the event this information is protected by the Federal Confidentiality of Alcohol and Drug Abuse Patient Records regulations: The Federal rules restrict any use of the information to criminally investigate or prosecute any alcohol or drug abuse patient.[facility] HospitalIn the event this information is protected by the Federal Confidentiality of Alcohol and Drug Abuse Patient Records regulations: The Federal rules restrict any use of the information to criminally investigate or prosecute any alcohol or drug abuse patient.[facility] HospitalIn the event this information is protected by the Federal Confidentiality of Alcohol and Drug Abuse Patient Records regulations: The Federal rules restrict any use of the information to criminally investigate or prosecute any alcohol or drug abuse patient.[facility] HospitalIn the event this information is protected by the Federal Confidentiality of Alcohol and Drug Abuse Patient Records regulations: The Federal rules restrict any use of the information to criminally investigate or prosecute any alcohol or drug abuse patient.[facility] HospitalIn the event this information is protected by the Federal Confidentiality of Alcohol and Drug Abuse Patient Records regulations: The Federal rules restrict any use of the information to criminally investigate or prosecute any alcohol or drug abuse patient.[facility] HospitalIn the event this information is protected by the Federal Confidentiality of Alcohol and Drug Abuse Patient Records regulations: The Federal rules restrict any use of the information to criminally investigate or prosecute any alcohol or drug abuse patient.[facility] HospitalIn the event this information is protected by the Federal Confidentiality of Alcohol and Drug Abuse Patient Records regulations: The Federal rules restrict any use of the information to criminally investigate or prosecute any alcohol or drug abuse patient.[facility] HospitalIn the event this information is protected by the Federal Confidentiality of Alcohol and Drug Abuse Patient Records regulations: The Federal rules restrict any use of the information to criminally investigate or prosecute any alcohol or drug abuse patient.[facility] HospitalIn the event this information is protected by the Federal Confidentiality of Alcohol and Drug Abuse Patient Records regulations: The Federal rules restrict any use of the information to criminally investigate or prosecute any alcohol or drug abuse patient.[facility] HospitalIn the event this information is protected by the Federal Confidentiality of Alcohol and Drug Abuse Patient Records regulations: The Federal rules restrict any use of the information to criminally investigate or prosecute any alcohol or drug abuse patient.[facility] HospitalIn the event this information is protected by the Federal Confidentiality of Alcohol and Drug Abuse Patient Records regulations: The Federal rules restrict any use of the information to criminally investigate or prosecute any alcohol or drug abuse patient.[facility] HospitalIn the event this information is protected by the Federal Confidentiality of Alcohol and Drug Abuse Patient Records regulations: The Federal rules restrict any use of the information to criminally investigate or prosecute any alcohol or drug abuse patient.[facility] HospitalIn the event this information is protected by the Federal Confidentiality of Alcohol and Drug Abuse Patient Records regulations: The Federal rules restrict any use of the information to criminally investigate or prosecute any alcohol or drug abuse patient.[facility] HospitalIn the event this information is protected by the Federal Confidentiality of Alcohol and Drug Abuse Patient Records regulations: The Federal rules restrict any use of the information to criminally investigate or prosecute any alcohol or drug abuse patient.[facility] HospitalIn the event this information is protected by the Federal Confidentiality of Alcohol and Drug Abuse Patient Records regulations: The Federal rules restrict any use of the information to criminally investigate or prosecute any alcohol or drug abuse patient.[facility] HospitalIn the event this information is protected by the Federal Confidentiality of Alcohol and Drug Abuse Patient Records regulations: The Federal rules restrict any use of the information to criminally investigate or prosecute any alcohol or drug abuse patient.[facility] HospitalIn the event this information is protected by the Federal Confidentiality of Alcohol and Drug Abuse Patient Records regulations: The Federal rules restrict any use of the information to criminally investigate or prosecute any alcohol or drug abuse patient.[facility] HospitalIn the event this information is protected by the Federal Confidentiality of Alcohol and Drug Abuse Patient Records regulations: The Federal rules restrict any use of the information to criminally investigate or prosecute any alcohol or drug abuse patient.[facility] HospitalIn the event this information is protected by the Federal Confidentiality of Alcohol and Drug Abuse Patient Records regulations: The Federal rules restrict any use of the information to criminally investigate or prosecute any alcohol or drug abuse patient.[facility] HospitalIn the event this information is protected by the Federal Confidentiality of Alcohol and Drug Abuse Patient Records regulations: The Federal rules restrict any use of the information to criminally investigate or prosecute any alcohol or drug abuse patient.[facility] HospitalIn the event this information is protected by the Federal Confidentiality of Alcohol and Drug Abuse Patient Records regulations: The Federal rules restrict any use of the information to criminally investigate or prosecute any alcohol or drug abuse patient.[facility] HospitalIn the event this information is protected by the Federal Confidentiality of Alcohol and Drug Abuse Patient Records regulations: The Federal rules restrict any use of the information to criminally investigate or prosecute any alcohol or drug abuse patient.[facility] HospitalIn the event this information is protected by the Federal Confidentiality of Alcohol and Drug Abuse Patient Records regulations: The Federal rules restrict any use of the information to criminally investigate or prosecute any alcohol or drug abuse patient.[facility] HospitalIn the event this information is protected by the Federal Confidentiality of Alcohol and Drug Abuse Patient Records regulations: The Federal rules restrict any use of the information to criminally investigate or prosecute any alcohol or drug abuse patient.[facility] HospitalIn the event this information is protected by the Federal Confidentiality of Alcohol and Drug Abuse Patient Records regulations: The Federal rules restrict any use of the information to criminally investigate or prosecute any alcohol or drug abuse patient.[facility] HospitalIn the event this information is protected by the Federal Confidentiality of Alcohol and Drug Abuse Patient Records regulations: The Federal rules restrict any use of the information to criminally investigate or prosecute any alcohol or drug abuse patient.[facility] HospitalIn the event this information is protected by the Federal Confidentiality of Alcohol and Drug Abuse Patient Records regulations: The Federal rules restrict any use of the information to criminally investigate or prosecute any alcohol or drug abuse patient.[facility] HospitalIn the event this information is protected by the Federal Confidentiality of Alcohol and Drug Abuse Patient Records regulations: The Federal rules restrict any use of the information to criminally investigate or prosecute any alcohol or drug abuse patient.[facility] HospitalIn the event this information is protected by the Federal Confidentiality of Alcohol and Drug Abuse Patient Records regulations: The Federal rules restrict any use of the information to criminally investigate or prosecute any alcohol or drug abuse patient.[facility] HospitalIn the event this information is protected by the Federal Confidentiality of Alcohol and Drug Abuse Patient Records regulations: The Federal rules restrict any use of the information to criminally investigate or prosecute any alcohol or drug abuse patient.[facility] HospitalIn the event this information is protected by the Federal Confidentiality of Alcohol and Drug Abuse Patient Records regulations: The Federal rules restrict any use of the information to criminally investigate or prosecute any alcohol or drug abuse patient.[facility] HospitalIn the event this information is protected by the Federal Confidentiality of Alcohol and Drug Abuse Patient Records regulations: The Federal rules restrict any use of the information to criminally investigate or prosecute any alcohol or drug abuse patient.[facility] HospitalIn the event this information is protected by the Federal Confidentiality of Alcohol and Drug Abuse Patient Records regulations: The Federal rules restrict any use of the information to criminally investigate or prosecute any alcohol or drug abuse patient.[facility] HospitalIn the event this information is protected by the Federal Confidentiality of Alcohol and Drug Abuse Patient Records regulations: The Federal rules restrict any use of the information to criminally investigate or prosecute any alcohol or drug abuse patient.[facility] HospitalIn the event this information is protected by the Federal Confidentiality of Alcohol and Drug Abuse Patient Records regulations: The Federal rules restrict any use of the information to criminally investigate or prosecute any alcohol or drug abuse patient.[facility] HospitalIn the event this information is protected by the Federal Confidentiality of Alcohol and Drug Abuse Patient Records regulations: The Federal rules restrict any use of the information to criminally investigate or prosecute any alcohol or drug abuse patient.[facility] HospitalIn the event this information is protected by the Federal Confidentiality of Alcohol and Drug Abuse Patient Records regulations: The Federal rules restrict any use of the information to criminally investigate or prosecute any alcohol or drug abuse patient.[facility] HospitalIn the event this information is protected by the Federal Confidentiality of Alcohol and Drug Abuse Patient Records regulations: The Federal rules restrict any use of the information to criminally investigate or prosecute any alcohol or drug abuse patient.[facility] HospitalIn the event this information is protected by the Federal Confidentiality of Alcohol and Drug Abuse Patient Records regulations: The Federal rules restrict any use of the information to criminally investigate or prosecute any alcohol or drug abuse patient.[facility] HospitalIn the event this information is protected by the Federal Confidentiality of Alcohol and Drug Abuse Patient Records regulations: The Federal rules restrict any use of the information to criminally investigate or prosecute any alcohol or drug abuse patient.[facility] HospitalIn the event this information is protected by the Federal Confidentiality of Alcohol and Drug Abuse Patient Records regulations: The Federal rules restrict any use of the information to criminally investigate or prosecute any alcohol or drug abuse patient.[facility] HospitalIn the event this information is protected by the Federal Confidentiality of Alcohol and Drug Abuse Patient Records regulations: The Federal rules restrict any use of the information to criminally investigate or prosecute any alcohol or drug abuse patient.[facility] HospitalIn the event this information is protected by the Federal Confidentiality of Alcohol and Drug Abuse Patient Records regulations: The Federal rules restrict any use of the information to criminally investigate or prosecute any alcohol or drug abuse patient.[facility] HospitalIn the event this information is protected by the Federal Confidentiality of Alcohol and Drug Abuse Patient Records regulations: The Federal rules restrict any use of the information to criminally investigate or prosecute any alcohol or drug abuse patient.[facility] HospitalIn the event this information is protected by the Federal Confidentiality of Alcohol and Drug Abuse Patient Records regulations: The Federal rules restrict any use of the information to criminally investigate or prosecute any alcohol or drug abuse patient.[facility] HospitalIn the event this information is protected by the Federal Confidentiality of Alcohol and Drug Abuse Patient Records regulations: The Federal rules restrict any use of the information to criminally investigate or prosecute any alcohol or drug abuse patient.[facility] HospitalIn the event this information is protected by the Federal Confidentiality of Alcohol and Drug Abuse Patient Records regulations: The Federal rules restrict any use of the information to criminally investigate or prosecute any alcohol or drug abuse patient.[facility] HospitalIn the event this information is protected by the Federal Confidentiality of Alcohol and Drug Abuse Patient Records regulations: The Federal rules restrict any use of the information to criminally investigate or prosecute any alcohol or drug abuse patient.[facility] HospitalIn the event this information is protected by the Federal Confidentiality of Alcohol and Drug Abuse Patient Records regulations: The Federal rules restrict any use of the information to criminally investigate or prosecute any alcohol or drug abuse patient.[facility] HospitalIn the event this information is protected by the Federal Confidentiality of Alcohol and Drug Abuse Patient Records regulations: The Federal rules restrict any use of the information to criminally investigate or prosecute any alcohol or drug abuse patient.[facility] HospitalIn the event this information is protected by the Federal Confidentiality of Alcohol and Drug Abuse Patient Records regulations: The Federal rules restrict any use of the information to criminally investigate or prosecute any alcohol or drug abuse patient.[facility] HospitalIn the event this information is protected by the Federal Confidentiality of Alcohol and Drug Abuse Patient Records regulations: The Federal rules restrict any use of the information to criminally investigate or prosecute any alcohol or drug abuse patient.[facility] HospitalIn the event this information is protected by the Federal Confidentiality of Alcohol and Drug Abuse Patient Records regulations: The Federal rules restrict any use of the information to criminally investigate or prosecute any alcohol or drug abuse patient.[facility] HospitalIn the event this information is protected by the Federal Confidentiality of Alcohol and Drug Abuse Patient Records regulations: The Federal rules restrict any use of the information to criminally investigate or prosecute any alcohol or drug abuse patient.[facility] HospitalIn the event this information is protected by the Federal Confidentiality of Alcohol and Drug Abuse Patient Records regulations: The Federal rules restrict any use of the information to criminally investigate or prosecute any alcohol or drug abuse patient.[facility] HospitalIn the event this information is protected by the Federal Confidentiality of Alcohol and Drug Abuse Patient Records regulations: The Federal rules restrict any use of the information to criminally investigate or prosecute any alcohol or drug abuse patient.[facility] HospitalIn the event this information is protected by the Federal Confidentiality of Alcohol and Drug Abuse Patient Records regulations: The Federal rules restrict any use of the information to criminally investigate or prosecute any alcohol or drug abuse patient.[facility] HospitalIn the event this information is protected by the Federal Confidentiality of Alcohol and Drug Abuse Patient Records regulations: The Federal rules restrict any use of the information to criminally investigate or prosecute any alcohol or drug abuse patient.[facility] HospitalIn the event this information is protected by the Federal Confidentiality of Alcohol and Drug Abuse Patient Records regulations: The Federal rules restrict any use of the information to criminally investigate or prosecute any alcohol or drug abuse patient.[facility] HospitalIn the event this information is protected by the Federal Confidentiality of Alcohol and Drug Abuse Patient Records regulations: The Federal rules restrict any use of the information to criminally investigate or prosecute any alcohol or drug abuse patient.[facility] HospitalIn the event this information is protected by the Federal Confidentiality of Alcohol and Drug Abuse Patient Records regulations: The Federal rules restrict any use of the information to criminally investigate or prosecute any alcohol or drug abuse patient.[facility] HospitalIn the event this information is protected by the Federal Confidentiality of Alcohol and Drug Abuse Patient Records regulations: The Federal rules restrict any use of the information to criminally investigate or prosecute any alcohol or drug abuse patient.[facility] HospitalIn the event this information is protected by the Federal Confidentiality of Alcohol and Drug Abuse Patient Records regulations: The Federal rules restrict any use of the information to criminally investigate or prosecute any alcohol or drug abuse patient.[facility] HospitalIn the event this information is protected by the Federal Confidentiality of Alcohol and Drug Abuse Patient Records regulations: The Federal rules restrict any use of the information to criminally investigate or prosecute any alcohol or drug abuse patient.[facility] HospitalIn the event this information is protected by the Federal Confidentiality of Alcohol and Drug Abuse Patient Records regulations: The Federal rules restrict any use of the information to criminally investigate or prosecute any alcohol or drug abuse patient.[facility] HospitalIn the event this information is protected by the Federal Confidentiality of Alcohol and Drug Abuse Patient Records regulations: The Federal rules restrict any use of the information to criminally investigate or prosecute any alcohol or drug abuse patient.[facility] HospitalIn the event this information is protected by the Federal Confidentiality of Alcohol and Drug Abuse Patient Records regulations: The Federal rules restrict any use of the information to criminally investigate or prosecute any alcohol or drug abuse patient.[facility] HospitalIn the event this information is protected by the Federal Confidentiality of Alcohol and Drug Abuse Patient Records regulations: The Federal rules restrict any use of the information to criminally investigate or prosecute any alcohol or drug abuse patient.[facility] HospitalIn the event this information is protected by the Federal Confidentiality of Alcohol and Drug Abuse Patient Records regulations: The Federal rules restrict any use of the information to criminally investigate or prosecute any alcohol or drug abuse patient.[facility] HospitalIn the event this information is protected by the Federal Confidentiality of Alcohol and Drug Abuse Patient Records regulations: The Federal rules restrict any use of the information to criminally investigate or prosecute any alcohol or drug abuse patient.[facility] HospitalIn the event this information is protected by the Federal Confidentiality of Alcohol and Drug Abuse Patient Records regulations: The Federal rules restrict any use of the information to criminally investigate or prosecute any alcohol or drug abuse patient.[facility] HospitalIn the event this information is protected by the Federal Confidentiality of Alcohol and Drug Abuse Patient Records regulations: The Federal rules restrict any use of the information to criminally investigate or prosecute any alcohol or drug abuse patient.[facility] HospitalIn the event this information is protected by the Federal Confidentiality of Alcohol and Drug Abuse Patient Records regulations: The Federal rules restrict any use of the information to criminally investigate or prosecute any alcohol or drug abuse patient.[facility] HospitalIn the event this information is protected by the Federal Confidentiality of Alcohol and Drug Abuse Patient Records regulations: The Federal rules restrict any use of the information to criminally investigate or prosecute any alcohol or drug abuse patient.[facility] HospitalIn the event this information is protected by the Federal Confidentiality of Alcohol and Drug Abuse Patient Records regulations: The Federal rules restrict any use of the information to criminally investigate or prosecute any alcohol or drug abuse patient.[facility] HospitalIn the event this information is protected by the Federal Confidentiality of Alcohol and Drug Abuse Patient Records regulations: The Federal rules restrict any use of the information to criminally investigate or prosecute any alcohol or drug abuse patient.[facility] HospitalIn the event this information is protected by the Federal Confidentiality of Alcohol and Drug Abuse Patient Records regulations: The Federal rules restrict any use of the information to criminally investigate or prosecute any alcohol or drug abuse patient.[facility] HospitalIn the event this information is protected by the Federal Confidentiality of Alcohol and Drug Abuse Patient Records regulations: The Federal rules restrict any use of the information to criminally investigate or prosecute any alcohol or drug abuse patient.[facility] HospitalIn the event this information is protected by the Federal Confidentiality of Alcohol and Drug Abuse Patient Records regulations: The Federal rules restrict any use of the information to criminally investigate or prosecute any alcohol or drug abuse patient.[facility] HospitalIn the event this information is protected by the Federal Confidentiality of Alcohol and Drug Abuse Patient Records regulations: The Federal rules restrict any use of the information to criminally investigate or prosecute any alcohol or drug abuse patient.[facility] HospitalIn the event this information is protected by the Federal Confidentiality of Alcohol and Drug Abuse Patient Records regulations: The Federal rules restrict any use of the information to criminally investigate or prosecute any alcohol or drug abuse patient.[facility] HospitalIn the event this information is protected by the Federal Confidentiality of Alcohol and Drug Abuse Patient Records regulations: The Federal rules restrict any use of the information to criminally investigate or prosecute any alcohol or drug abuse patient.[facility] HospitalIn the event this information is protected by the Federal Confidentiality of Alcohol and Drug Abuse Patient Records regulations: The Federal rules restrict any use of the information to criminally investigate or prosecute any alcohol or drug abuse patient.[facility] HospitalIn the event this information is protected by the Federal Confidentiality of Alcohol and Drug Abuse Patient Records regulations: The Federal rules restrict any use of the information to criminally investigate or prosecute any alcohol or drug abuse patient.[facility] HospitalIn the event this information is protected by the Federal Confidentiality of Alcohol and Drug Abuse Patient Records regulations: The Federal rules restrict any use of the information to criminally investigate or prosecute any alcohol or drug abuse patient.[facility] HospitalIn the event this information is protected by the Federal Confidentiality of Alcohol and Drug Abuse Patient Records regulations: The Federal rules restrict any use of the information to criminally investigate or prosecute any alcohol or drug abuse patient.[facility] HospitalIn the event this information is protected by the Federal Confidentiality of Alcohol and Drug Abuse Patient Records regulations: The Federal rules restrict any use of the information to criminally investigate or prosecute any alcohol or drug abuse patient.[facility] Reason for Visit (unrecogniz ed section [...] STEM W/O CONTRAST MATERIAL Stas Mora MD [address] [place] [address] [place] [address] Referral ID Status Reason Start Date Expiration Date V isits Requested Visits Authorized [id number] Closed Auto-Generat ed Referral Patient Cleared - [...] anxiety (HCC) Procedures CONSULT TO GERIATRICS OFFICE/OUTPATIENT [facility] 60 MINUTES Stas Mora MD [address] [place] [address] Referral ID Status Reason Start Date Expiration Date V isits Requested Visits Authorized [id number] Closed PCP Requested Referral 04/25/2024 04/25/2025 1 [...] Care Teams (unrecognized sec tion and content) Bean Roaster Relationship Specialty Start Date End Date Stas Mora MD [address] [place] [address] PCP - General 08/02/08, Pharmacist [id number] [place] [address] Pharmacist Pharmacy 10/19/19 Bean Roaster Relationship Specialty Start Date End Date Stas Mora MD [address] [place] [address] PCP - General 08/02/08, Pharmacist [id number] [place] [address] Pharmacist Pharmacy 10/19/19 Bean Roaster Relationship Specialty Start Date End Date Stas Mora MD [address] [place] [address] PCP - General 08/02/08, Pharmacist [id number] [place] [address], [place] [address] Pharmacist Pharmacy 10/19/19 Bean Roaster Relationship Specialty Start Date End Date Stas Mora MD [address] [place] [address] PCP - General 08/02/08, Pharmacist [id number] [place] [address] Pharmacist Pharmacy 10/19/19 Bean Roaster Relationship Specialty Start Date End Date Stas Mora MD [address] [place] [address] PCP - General 08/02/08, Pharmacist [id number] [place] [address], [place] [address] Pharmacist Pharmacy 10/19/19 Bean Roaster Relationship Specialty Start Date End Date Stas Mora MD [address] [place] [address] PCP - General 08/02/08, Pharmacist [id number] [place] [address], [place] [address] Pharmacist Pharmacy 10/19/19 Bean Roaster Relationship Specialty Start Date End Date Stas Mora MD [address] [place] [address] PCP - General 08/02/08, Pharmacist [id number] [place] [address] Pharmacist Pharmacy 10/19/19 Bean Roaster Relationship Specialty Start Date End Date Stas Mora MD [address] [place] [address] PCP - General 08/02/08, Pharmacist [id number] [place] [address] Pharmacist Pharmacy 10/19/19 Bean Roaster Relationship Specialty Start Date End Date Stas Mora MD [address] [place] [address] PCP - General 08/02/08, Pharmacist [address] [place] [address] Pharmacist Pharmacy 10/19/19 Bean Roaster Relationship Specialty Start Date End Date Stas Mora MD [address] [place] [address] PCP - General 08/02/08, Pharmacist [phone] [place] [address], [place] [address] Pharmacist Pharmacy 10/19/19 Bean Roaster Relationship Specialty Start Date End Date Stas Mora MD [address] [place] [address] PCP - General 08/02/08, Pharmacist [address] [place] [address] Pharmacist Pharmacy 10/19/19 Bean Roaster Relationship Specialty Start Date End Date Stas Mora MD [address] [place] [address] PCP - General 08/02/08, Pharmacist [phone] [place] [address], [place] [address] Pharmacist Pharmacy 10/19/19 Bean Roaster Relationship Specialty Start Date End Date Stas Mora MD [address] [place] [address] PCP - General 08/02/08, Pharmacist [address] [place] [address] Pharmacist Pharmacy 10/19/19 Bean Roaster Relationship Specialty Start Date End Date Stas Mora MD [address] [place] [address] PCP - General 08/02/08, Pharmacist [address]49 [place] [address] Pharmacist Pharmacy 10/19/19 Bean Roaster Relationship Specialty Start Date End Date Stas Mora MD [address] [place] [address] PCP - General 08/02/08, Pharmacist [address] [place] [address] Pharmacist Pharmacy 10/19/19 Bean Roaster Relationship Specialty Start Date End Date Stas Mora MD [address] [place] [address] PCP - General 08/02/08, Pharmacist [phone] [place] [address], [place] [address] Pharmacist Pharmacy 10/19/19 Bean Roaster Relationship Specialty Start Date End Date Stas Mora MD [address] [place] [address] PCP - General 08/02/08, Pharmacist [phone] [place] [address], [place] [address] Pharmacist Pharmacy 10/19/19 Bean Roaster Relationship Specialty Start Date End Date Stas Mora MD [address] [place] [address] PCP - General 08/02/08, Pharmacist [address] [place] [address] Pharmacist Pharmacy 10/19/19 Bean Roaster Relationship Specialty Start Date End Date Stas Mora MD [address] [place] [address] PCP - General 08/02/08, Pharmacist 33026 [place] [address] Pharmacist Pharmacy 10/19/19 Bean Roaster Relationship Specialty Start Date End Date Stas Mora MD [address] [place] [address] PCP - General 08/02/08, Pharmacist [address] [place] [address] Pharmacist Pharmacy 10/19/19 Bean Roaster Relationship Specialty Start Date End Date Stas Mora MD [address] [place] [address] PCP - General 08/02/08, Pharmacist [address] [place] [address] Pharmacist Pharmacy 10/19/19 Team Status: Active Member Role Status Dates Dr. Stas Mora MD Family Provider Active Dr. Stas Mora MD Primary Care Provider Active Team Status: Inactive Member Role Status Dates Dr. Stas Mora MD Primary Care Provider Active Dr. Brian Cunningham , DO Emergency Provider Active Bean Roaster Relationship Specialty Start Date End Date Stas Mora MD [address] [place] [address] PCP - General 08/02/08, Pharmacist [address] [place] [address] Pharmacist Pharmacy 10/19/19 Bean Roaster Relationship Specialty Start Date End Date Stas Mora MD [address] [place] [address] PCP - General 08/02/08, Pharmacist [address] [place] [address] Pharmacist Pharmacy 10/19/19 Bean Roaster Relationship Specialty Start Date End Date Stas Mora MD [address] [place] [address] PCP - General 08/02/08, Pharmacist [address] [place] [address] Pharmacist Pharmacy 10/19/19 Bean Roaster Relationship Specialty Start Date End Date Stas Mora MD [address] [place] [address] PCP - General 08/02/08, Pharmacist [address] [place] [address] Pharmacist Pharmacy 10/19/19 Bean Roaster Relationship Specialty Start Date End Date Stas Mora MD [address] [place] [address] PCP - General 08/02/08, Pharmacist [address] [place] [address] Pharmacist Pharmacy 10/19/19 Bean Roaster Relationship Specialty Start Date End Date Stas Mora MD [address] [place] [address] PCP - General 08/02/08, Pharmacist [address] [place] [address] Pharmacist Pharmacy 10/19/19 Bean Roaster Relationship Specialty Start Date End Date Stas Mora MD [address] [place] [address] PCP - General 08/02/08, Pharmacist 30314 [place] [address] Pharmacist Pharmacy 10/19/19 Bean Roaster Relationship Specialty Start Date End Date Stas Mora MD [address] [place] [address] PCP - General 08/02/08, Pharmacist 57174 [place] [address] Pharmacist Pharmacy 10/19/19 Bean Roaster Relationship Specialty Start Date End Date Stas Mora MD [address] [place] [address] PCP - General 08/02/08, Pharmacist 33771 [place] [address] Pharmacist Pharmacy 10/19/19 Bean Roaster Relationship Specialty Start Date End Date Stas Mora MD [address] [place] [address] PCP - General 08/02/08, Pharmacist [address] [place] [address] Pharmacist Pharmacy 10/19/19 Bean Roaster Relationship Specialty Start Date End Date Stas Mora MD [address] [place] [address] PCP - General 08/02/08, Pharmacist [address] [place] [address] Pharmacist Pharmacy 10/19/19 Bean Roaster Relationship Specialty Start Date End Date Stas Mora MD [address] [place] [address] PCP - General 08/02/08, Pharmacist [address]602 [place] [address] Pharmacist Pharmacy 10/19/19 Bean Roaster Relationship Specialty Start Date End Date Stas Mora MD [address] [place] [address] PCP - General 08/02/08, Pharmacist [address]1167 [place] [address] Pharmacist Pharmacy 10/19/19 Bean Roaster Relationship Specialty Start Date End Date Stas Mora MD [address] [place] [address] PCP - General 08/02/08, Pharmacist [address] [place] [address] Pharmacist Pharmacy 10/19/19 Bean Roaster Relationship Specialty Start Date End Date Stas Mora MD [address] [place] [address] PCP - General 08/02/08, Pharmacist [address] [place] [address] Pharmacist Pharmacy 10/19/19 Bean Roaster Relationship Specialty Start Date End Date Stas Mora MD [address] [place] [address] PCP - General 08/02/08, Pharmacist [address] [place] [address] Pharmacist Pharmacy 10/19/19 Bean Roaster Relationship Specialty Start Date End Date Stas Mora MD [address] [place] [address] PCP - General 08/02/08, Pharmacist [address] [place] [address] Pharmacist Pharmacy 10/19/19 Bean Roaster Relationship Specialty Start Date End Date Stas Mora MD [address] [place] [address] PCP - General 08/02/08, Pharmacist [address] [place] [address] Pharmacist Pharmacy 10/19/19 Bean Roaster Relationship Specialty Start Date End Date Stas Mora MD [address] [place] [address] PCP - General 08/02/08, Pharmacist 26723 [place] [address] Pharmacist Pharmacy 10/19/19 Bean Roaster Relationship Specialty Start Date End Date Stas Mora MD [address] [place] [address] PCP - General 08/02/08, Pharmacist [address]7434 [place] [address] Pharmacist Pharmacy 10/19/19 Bean Roaster Relationship Specialty Start Date End Date Stas Mora MD [address] [place] [address] PCP - General 08/02/08, Pharmacist [address] [place] [address] Pharmacist Pharmacy 10/19/19 Bean Roaster Relationship Specialty Start Date End Date Stas Mora MD [address] [place] [address] PCP - General 08/02/08, Pharmacist 34113 [place] [address] Pharmacist Pharmacy 10/19/19 Jenna Fitzpatrick, JETHRO.ARCHAEOLOGY PROFESSOR [address] [place] [address] Casserole Preparer Family Medicine 02/28/24 Bean Roaster Relationship Specialty Start Date End Date Stas Mora MD [address] [place] [address] PCP - General 08/02/08, Pharmacist [address]87 [place] [address] Pharmacist Pharmacy 10/19/19 Jenna Fitzpatrick, PNEUMATIC TUBE FITTER.ARCHAEOLOGY PROFESSOR [address] [place] [address] Casserole Preparer Family Medicine 02/28/24 Elvis Kearney APRN.ARCHAEOLOGY PROFESSOR [address] [place] [address] Casserole Preparer Family Medicine 03/08/24 Bean Roaster Relationship Specialty Start Date End Date Stas Mora MD [address] [place] [address] PCP - General 08/02/08, Pharmacist [address] [place] [address] Pharmacist Pharmacy 10/19/19 Jenna Fitzpatrick APRN.ARCHAEOLOGY PROFESSOR [address] [place] [address] Casserole Preparer [facility] 02/28/24 Elvis Kearney APRN.ARCHAEOLOGY PROFESSOR [address] [place] [address] [facility] 03/08/24 Bean Roaster Relationship Specialty Start Date End Date Stas Mora MD [address] [place] [address] PCP - General 08/02/08, Pharmacist [address] [place] [address] Pharmacist Pharmacy 10/19/19 Jenna Fitzpatrick APRN.ARCHAEOLOGY PROFESSOR [address] [place] [address] Casserole Preparer Family Medicine 02/28/24 Elvis Kearney APRN.ARCHAEOLOGY PROFESSOR [address] [place] [address] Casserole Preparer Family Medicine 03/08/24 Bean Roaster Relationship Specialty Start Date End Date Stas Mora MD [address] [place] [address] PCP - General 08/02/08, Pharmacist [address] [place] [address] Pharmacist Pharmacy 10/19/19 Jenna Fitzpatrick PNEUMATIC TUBE FITTER.ARCHAEOLOGY PROFESSOR [address] [place] [address] Casserole Preparer Family Medicine 02/28/24 Elvis Kearney PNEUMATIC TUBE FITTER.ARCHAEOLOGY PROFESSOR [address] [place] [address] Casserole Preparer Family Medicine 03/08/24 Bean Roaster Relationship Specialty Start Date End Date Stas Mora MD [address] [place] [address] PCP - General 08/02/08, Pharmacist [address] [place] [address] Pharmacist Pharmacy 10/19/19 Jenna Fitzpatrick, PNEUMATIC TUBE FITTER.ARCHAEOLOGY PROFESSOR [address] [place] [address] Casserole Preparer Family Medicine 02/28/24 Elvis Kearney PNEUMATIC TUBE FITTER.ARCHAEOLOGY PROFESSOR [address] [place] [address] Casserole Preparer Family Medicine 03/08/24 Bean Roaster Relationship Specialty Start Date End Date Stas Mora MD [address] [place] [address] PCP - General 08/02/08, Pharmacist [address] [place] [address] Pharmacist Pharmacy 10/19/19 Jenna Fitzpatrick APRN.ARCHAEOLOGY PROFESSOR [address] [place] [address] Casserole Preparer Family [facility] 02/28/24 Elvis Kearney APRN.ARCHAEOLOGY PROFESSOR [address] [place] [address] [facility] 03/08/24 Bean Roaster Relationship Specialty Start Date End Date Stas Mora MD [address] [place] [address] PCP - General 08/02/08, Pharmacist [address] [place] [address] Pharmacist Pharmacy 10/19/19 Jenna Fitzpatrick PNEUMATIC TUBE FITTER.ARCHAEOLOGY PROFESSOR [address] [place] [address] [facility] 02/28/24 Elvis Kearney PNEUMATIC TUBE FITTER.ARCHAEOLOGY PROFESSOR [address] [place] [address] [facility] 03/08/24 Bean Roaster Relationship Specialty Start Date End Date Stas Mora MD [address] [place] [address] PCP - General 08/02/08, Pharmacist [address] [place] [address] Pharmacist Pharmacy 10/19/19 Jenna Fitzpatrick PNEUMATIC TUBE FITTER.ARCHAEOLOGY PROFESSOR [address] [place] [address] Casserole Preparer Family Medicine 02/28/24 Elvis Kearney APRN.ARCHAEOLOGY PROFESSOR [address] [place] [address] Casserole Preparer Family [facility] 03/08/24 Bean Roaster Relationship Specialty Start Date End Date Stas Mora MD [address] [place] [address] PCP - General 08/02/08, Pharmacist [address] [place] [address] Pharmacist Pharmacy 10/19/19 Jenna Fitzpatrick APRN.ARCHAEOLOGY PROFESSOR [address] [place] [address] [facility] 02/28/24 Elvis Kearney APRN.ARCHAEOLOGY PROFESSOR [address] [place] [address] [facility] 03/08/24 Bean Roaster Relationship Specialty Start Date End Date Stas Mora MD [address] [place] [address] PCP - General 08/02/08, Pharmacist [address] [place] [address] Pharmacist Pharmacy 10/19/19 Jenna Fitzpatrick PNEUMATIC TUBE FITTER.ARCHAEOLOGY PROFESSOR [address] [place] [address] Casserole Preparer Family Medicine 02/28/24 Elvis Kearney APRN.ARCHAEOLOGY PROFESSOR [address] [place] [address] Casserole Preparer Family Medicine 03/08/24 Bean Roaster Relationship Specialty Start Date End Date Stas Mora MD [address] [place] [address] PCP - General 08/02/08, Pharmacist [address] [place] [address] Pharmacist Pharmacy 10/19/19 Jenna Fitzpatrick PNEUMATIC TUBE FITTER.ARCHAEOLOGY PROFESSOR [address] [place] [address] Casserole Preparer Family Medicine 02/28/24 Elvis Kearney PNEUMATIC TUBE FITTER.ARCHAEOLOGY PROFESSOR [address] [place] [address] Casserole Preparer [facility] Medicine 03/08/24 Bean Roaster Relationship Specialty Start Date End Date Stas Mora MD [address] [place] [address] PCP - General 08/02/08, Pharmacist [address] [place] [address] Pharmacist Pharmacy 10/19/19 Jenna Fitzpatrick, PNEUMATIC TUBE FITTER.ARCHAEOLOGY PROFESSOR [address] [place] [address] [facility] 02/28/24 Elvis Kearney, PNEUMATIC TUBE FITTER.ARCHAEOLOGY PROFESSOR [address] [place] [address] Casserole Preparer [facility] Medicine 03/08/24 Bean Roaster Relationship Specialty Start Date End Date Stas Mora MD [address] [place] [address] PCP - General 08/02/08, Pharmacist [address] [place] [address] Pharmacist Pharmacy 10/19/19 Jenna Fitzpatrick APRN.ARCHAEOLOGY PROFESSOR [address] [place] [address] Casserole Preparer Family Medicine 02/28/24 Elvis Kearney APRN.ARCHAEOLOGY PROFESSOR [address] [place] [address] Casserole Preparer Family Medicine 03/08/24 Bean Roaster Relationship Specialty Start Date End Date Stas Mora MD [address] [place] [address] PCP - General 08/02/08, Pharmacist [address] [place] [address] Pharmacist Pharmacy 10/19/19 Jenna Fitzpatrick PNEUMATIC TUBE FITTER.ARCHAEOLOGY PROFESSOR [address] [place] [address] Casserole Preparer Family Medicine 02/28/24 Elvis Kearney PNEUMATIC TUBE FITTER.ARCHAEOLOGY PROFESSOR [address] [place] [address] Casserole Preparer [facility] 03/08/24 Bean Roaster Relationship Specialty Start Date End Date Stas Moar MD [address] [place] [address] PCP - General 08/02/08, Pharmacist [address] [place] [address] Pharmacist Pharmacy 10/19/19 Jenna Fitzpatrick APRN.ARCHAEOLOGY PROFESSOR [address] [place] [address] Casserole Preparer Family Medicine 02/28/24 Elvis Kearney APRN.ARCHAEOLOGY PROFESSOR [address] [place] [address] Casserole Preparer [facility] 03/08/24 Bean Roaster Relationship Specialty Start Date End Date Stas Mora MD [address] [place] [address] PCP - General 08/02/08, Pharmacist [address] [place] [address] Pharmacist Pharmacy 10/19/19 Jenna Fitzpatrick APRN.ARCHAEOLOGY PROFESSOR [address] [place] [address] Casserole Preparer Family Medicine 02/28/24 Elvis Kearney APRN.ARCHAEOLOGY PROFESSOR [address] [place] [address] [facility] 03/08/24 Bean Roaster Relationship Specialty Start Date End Date Stas Mora MD [address] [place] [address] PCP - General 08/02/08, Pharmacist [address]247 [place] [address] Pharmacist Pharmacy 10/19/19 Elvis Kearney APRN.ARCHAEOLOGY PROFESSOR [address] [place] [address] [facility] 03/08/24 Bean Roaster Relationship Specialty Start Date End Date Stas Mora MD [address] [place] [address] PCP - General 08/02/08, Pharmacist 274[address] [place] [address] Pharmacist Pharmacy 10/19/19 Elvis Kearney APRN.ARCHAEOLOGY PROFESSOR [address] [place] [address] Casserole Preparer Family Medicine 03/08/24 Team Status: Active Member [...] Active Start: September 01, 2024 Dr. Kathy Wlels MD Other Provider Active St art: September [...] Provider Active Sta rt: September 06, 2024 Bean Roaster Relationship Specialty Start Date End Date Stas Mora MD [address] [facility] [address] PCP - General 08/02/08 13, Pharmacist [address] [place] [address] Pharmacist Pharmacy 10/19/19 Elvis Kearney, JETHRO.ARCHAEOLOGY PROFESSOR [address] [facility] [address] Casserole Preparer Family Medicine 03/08/24 Team Status: Active Member [...] 2024 End: September 07, 2024 Halina Carmona ECOLOGICAL ECONOMIST, ECOLOGICAL ECONOMIST-C Attending Provider Active Start: September 07, 2024 [...] End: September 08, 2024 Halina Carmona NP, ECOLOGICAL ECONOMIST-C Attending Provider Active Start: September 08, 2024 End: September 08, 2024 Team Status: Active Member Role/Relationship Status Dates Dr. Stas Mora MD Primary Care Provider Active Start: September 12, 2024 Shayy GAMA MD Attending Provider Active Start: September 12, 2024 Team Status: Active Member Role/Relationship Status Dates Dr. Stas Mora MD Primary Care Provider Active Start: September 14, 2024 Sahyy GAMA MD Attending Provider Active Start: September [...] 2024 End: September 30, 2024 Halina Carmona ECOLOGICAL ECONOMIST, ECOLOGICAL ECONOMIST-C Attending Provider Active Start: September 30, 2024 [...] End: October 20, 2024 Halina Carmona NP, ECOLOGICAL ECONOMIST-C Attending Provider Active Start: October 20, 2024 [...] 2024 End: September 30, 2024 Halina Carmona ECOLOGICAL ECONOMIST, ECOLOGICAL ECONOMIST-C Attending Provider Active Start: September 30, 2024 [...] End: October 20, 2024 Halina Carmona NP ECOLOGICAL ECONOMIST-C Attending Provider Active Start: October 20, 2024 [...] Status: Inactive Member Role/Relationship Status Dates Dr. Stsa Mora [...] End: September 30, 2024 Halina Carmona NP ECOLOGICAL ECONOMIST-C Attending physician Active Start: September 30, 2024 [...] End: October 20, 2024 Halina Carmona NP ECOLOGICAL ECONOMIST-C Attending physician Active Start: October 20, 2024 [...] physician Active Start: November 23, 2024 Shayy GAMA MD Attending physician Active Start: November 23, 2024 Team Status: Inactive Member Role/Relationship Status Dates Dr. Stas Mora MD Primary care physician Active Start: November 24, 2024 End: November 24, 2024 Halina Carmona ECOLOGICAL ECONOMIST, ECOLOGICAL ECONOMIST-C Attending physician Active Start: November 24, 2024 [...] BE BASED ON THE PRIMARY CLINICAL RECORDS. [employer] [facility]. provides no warranty or guarantee of the accuracy or completeness of information in this document.
[2025-01-25 07:49] LABS: Hematocrit 37.3 % (40-54); Hemoglobin 12.0 g/dL (13.0-16.5); Immature Granulocytes Count 0.040 X10^3/uL (0.0-0.0); Mean Corp Hgb Conc 32.2 g/dL (32-36); Mean Corpuscular Volume 83.4 fL (80-94); Mean Platelet Vol. 10.7 fl (6.2-12.0); NRBC Flagged by Analyzer 0 % (0-5); Platelet Count 203 K/mm3 (150-450); RBC Distribution Width CV 15.8 % (11.6-14.6); RBC Distribution Width SD 47.1 fl (35.1-43.9); Red Blood Count 4.47 M/mm3 (4.6-6.2); White Blood Count 6.9 K/mm3 (4.4-11.0)
[2025-01-25 08:08] LABS: Anion Gap 11 (5-15); BUN 18 mg/dL (4-19); BUN/Creat Ratio 25.7 RATIO (10-20); Calcium,Total 8.5 mg/dL (7.6-11.0); Carbon Dioxide 23.4 mmol/L (21.0-32.0); Chloride 106 mmol/L (98-108); Glucose 98 mg/dL (70-99); Potassium 4.1 mmol/L (3.3-5.1)
== END ==
LOC: OLS.WHLCAR 05:00
PROVIDERS: PCP Family Medicine; Visit Provider Internal Medicine
DX: I48.91 Unspecified atrial fibrillation (principal); I25.10 Atherosclerotic heart disease of native coronary artery without angina pectoris; F03.918 Unspecified dementia, unspecified severity, with other behavioral disturbance; I10 Essential (primary) hypertension
CPT/HCPCS: 36415; 80048; 85025

== ENCOUNTER → 2025-02-20 05:00 | Outpatient (REF) | payer MEDICARE, SELFPAY ==
--- OUTSIDE RECORDS SUMMARY | 2025-02-20 03:39 | XMS RPT_ITS | CCD ---
Author Organization [facility] Inform ion Partnership [facility] Care Team Providers Care Maintenance Leader Name Role Phone TEE, DARRELL E Unavailable [...] Dr. Stas Mora Primary Care Provider [phone] Dr. Inderjit Gillespie Emergency Provider Dr. Dirk [...] Unavailable STERLING LYNCH DO Attending Unavailable [place]hof HOSPICE ADMINISTRATOR.CCU NURSE, Jenna Unavailable Caio HOSPICE ADMINISTRATOR.CCU NURSE, Elvis Unavailable LUCIANA CISNEROS Referring Unavailable STAS MORA Primary Care Unavailable [place] HOSPICE ADMINISTRATOR.CCU NURSE, Jenna Unavailable Unavail able [place] HOSPICE ADMINISTRATOR.CCU NURSE, Jenna Unavailable Morgan POLANCO, Dr. Ruiz Primary Care Provider Jose Miguel POLANCO, Dr. Jansen Emergency Provider Priscilla POLANCO, Dr. Kathy Beadren Admit Provider Priscilla POLANCO, Dr. Kathy Bearden Attending Provider Priscilla POLANCO, Dr. Kathy Bearden Other Provider Alberto POLANCO, Dr. Shoemaker Attending Provider Alberto POLANCO, Dr. Shoemaker Other Provider Shayy Curtis MD Attending Provider UnavailShayy Hernandez MD Referring Provider Unavailrachel Carmona NP-CHalina Attending Provider Ever POLANCO, Dr. Lucas Attending Provider Morgan POLANCO, Dr. Ruiz Primary Care Physician Shayy Curtis MD Attending Physician Unavail beau Curtis MD, Dr. Lucas Attending Physician Kristine INSURANCE REPRESENTATIVE-CHalina Attending Physician Oleghe OLS, Efewongbe Attending Unavailabl e Stas Mora Primary Care Unavailable Stas Mora Primary Care Unavailable Oleghe OLS, Efewongbe Attending Unavailabl e Morgan, Stas Primary Care Unavailable Oleghe OLS, Efewongbe Attending Unavailabl e Oleghe OLS, Efewongbe Attending Unavailabl e Morgan, Stas Primary Care Unavailable Oleghe OLS, Efewongbe Attending Unavailabl e Morgan, Stas Primary Care Unavailable Oleghe OLS, Efewongbe Attending Unavailabl e Stas Mora Primary Care Unavailable Oleghe OLS, Efewongbe Attending [...] Admitting Unavailable Koram, Kathy Monisha Consulting Unavailable Elderbrock, [...] Unavailable Oleghe OLS, Efewongbe Attending Unavailabl e T[place]ton INSURANCE REPRESENTATIVE, Halina Attending Unavailable Elderbrock, Stas Primary Care Unavailable [place] INSURANCE REPRESENTATIVE, Halina Attending Unavailable Elderbrock, Stas Primary Care Unavailable [place] INSURANCE REPRESENTATIVE, Halina Attending Unavailable Elderbrock, Stas Primary Care Unavailable [place] INSURANCE REPRESENTATIVE, Halina Attending Unavailable Elderbrock, Stas Primary Care Unavailable Koram, Kathy Monisha Consulting Unavailable Koram, Kathy Monisha Attending Unavailable Koram, Kathy Monisha Admitting Unavailable Elderbrock, Stas Primary Care Unavailable Kathy Wells Attending Unavailable Kristine INSURANCE REPRESENTATIVE, Halina Attending Unavailable Elderbrock, Stas Primary Care Unavailable Elderbrock, Stas Primary Care Unavailable Oleghe, Efewongbe Attending Unavailable Elderbrock, Stas Primary Care Unavailable Oleghe, Efewongbe Attending Unavailable Elderbrock, Stas Primary Care Unavailable Oleghe, Efewongbe Attending Unavailable Elderbrock, Stas Primary Care Unavailable Kristine SNELL, Halina Attending Unavailable Cj Barrientos Attending Unavailable Elderbrock, Stas Primary Care Unavailable Elderbrock, Stas Primary Care Unavailable Oleghe OLS, Efewongbe Attending Unavailabl e MOHITTA, LUCIANA Referring Unavailable ELDERBROCK, STAS D Primary [...] unspecified vessel or lesion type, unspecified whether [place] or transplanted heart Take 1 tablet by [...] hydrochloride 10 mg oral tablet (20 sources) J-[id number]-Q-aspartate Receptor Antagonist Start: 06-02-19 End: 11-29-19 take 1 tablet by mouth twice daily metoprolol tartrate 50 mg oral tablet (1 source) beta-Adrenergic Jazmin Start: 01-02-20 Lopressor 50 mg oral tablet Dose : 25 mg = 0.5 tab(s), PO, BID, 0 Refill(s), current med (Hx) Start Date: 01/01/06 Status: Ordered polyethylene glycol 3350 21139 mg powder for oral solution (12 sources) [...] Take [address] [facility] daily at bedtime. vardenafil 10 mg oral [...] d aily. Take 1 tablet by darrian once daily. donepezil hydrochloride 5 mg oral [...] disease (20 sources) Atherosclerotic heart disease of [place] coronary artery without angina pectoris; Translations: [Coronary [...] Test Name Value Interpretation Reference Range Facility [facility] 01-19-2025 [facility] Letter Text Normal [facility] normalized rat io (INR) measurement by fingerstickOrdered By: Shayy Curtis on 01-10-2025 INR Coag (BldC) [Relative time] 1.9 [facility] Comment on above: Critical Value > 4.0 Whole blood prothrombin time Ordered By: Shayy Curtis on 01-10-2025 PT Coag (Bld) [Time] 21.0 s High 11.7-14.9 [facility] Absolute lymphocyte countOrd ered By: Shayy Curtis on 12-21-2024 Lymphocytes Auto (Unsp spec) [#/Vol] 1.31 10*3/uL 0.83-4.51 [facility] Absolute neutrophil countOrd ered By: Shayy Curtis on 12-21-2024 Neutrophils (Bld) [#/Vol] 3.6 10*3/uL 2.0-7.7 [facility] Anion gap in Serum or Plasma Ordered By: Shayy Curtis on 12-21-2024 Anion gap [Moles/Vol] 9 mmol/L 5-15 [facility] Automated lymphocyte count a s percentage of total leukocytesOrdered By: Shayy Curtis on 12-21-2024 Lymphocytes/100 WBC Auto (Unsp spec) 23.0 % 19-41 [facility] BUN/creatinine ratioOrdered By: Shayy Curtis on 12-21-2024 Urea nitrogen/Creatinine [Mass ratio] 32.5 mg/mg High 10-20 [facility] Basophil percentageOrdered B y: Shayy Curtis on 12-21-2024 Basophils/100 WBC (Bld) 0.7 % 0-1 [facility] Carbon dioxide, total [Moles /volume] in Central venous bloodOrdered By: Shayy Curtis on 12-21-2024 CO2 [Moles/Vol] 25.8 mmol/L 21.0-32.0 [facility] Chloride assayOrdered By: Hung Curtis on 12-21-2024 Chloride [Moles/Vol] 107 mmol/L 98-108 [facility] Eosinophil percentageOrdered By: Shayy Curtis on 12-21-2024 Eosinophils/100 WBC (Bld) 2.3 % 0-5 [facility] Erythrocyte distribution wid th ratioOrdered By: Shayy Curtis on 12-21-2024 Erythrocyte distribution width (RBC) [Ratio] 15.9 % High 11.6-14.6 [facility] Erythrocyte distribution wid th standard deviationOrdered By: Shayy Curtis on 12-21-2024 Erythrocyte distribution width (RBC) [Ratio] 49.5 fl High 35.1-43.9 [facility] Glomerular filtration rate ( GFR) estimation/1.73 sq m using serum, plasma, or whole bOrdered By: Shayy Curtis on 12-21-2024 GFR/1.73 sq M.predicted among non-blacks MDRD (S/P/Bld) [Vol rate/Area] 90 mL/min/{1.73_m2} >60 [facility] Comment on above: mL/min/1.73m2 CKD-EP I Creatinine Equation (2020) Hematocrit Auto (Bld) [Volum e fraction]Ordered By: Shayy Curtis on 12-21-2024 Hematocrit (Bld) [Volume fraction] 34.9 % Low 40-54 [facility] Hemoglobin measurementOrdere d By: Shayy Curtis on 12-21-2024 Hemoglobin (Bld) [Mass/Vol] 10.6 g/dL Low 13.0-16.5 [facility] Immature granulocytes/100 WB C Auto (Bld)Ordered By: Shayy Curtis on 12-21-2024 Immature granulocytes/100 WBC (Bld) 0.200 % 0.0-0.9 [facility] Comment on above: IG% - Immature Granu locytes (promyelocytes, myelocytes and metamyelocytes) > 1% indicates that a LEFT SHIFT is Present. MCV (mean corpuscular volume ) determinationOrdered By: Shayy Curtis on 12-21-2024 MCV (RBC) [Entitic vol] 84.5 fL 80-94 [facility] Mean corpuscular hemoglobin (MCH) determinationOrdered By: baldomero Curtis on 12-21-2024 MCH (RBC) [Entitic mass] 25.7 pg Low 27.0-32.0 [facility] Mean corpuscular hemoglobin concentration (MCHC) determinationOrdered By: Shayy Curtis on 12-21-2024 MCHC (RBC) [Mass/Vol] 30.4 g/dL Low 32-36 [facility] Mean platelet volume determi nationOrdered By: Shayy Curtis on 12-21-2024 Platelet mean volume (Bld) [Entitic vol] 10.9 fL 6.2-12.0 [facility] Monocyte percentageOrdered B y: Shayy Curtis on 12-21-2024 Monocytes/100 WBC (Bld) 10.5 % High 0-10 [facility] Neutrophil percentageOrdered By: Shayy Curtis on 12-21-2024 Neutrophils/100 WBC (Bld) 63.3 % 47-70 [facility] Nucleated red blood cell per centageOrdered By: Shayy Curtis on 12-21-2024 Nucleated RBC/100 WBC (Bld) [Ratio] 0 % 0-5 [facility] Platelet countOrdered By: Hung Curtis on 12-21-2024 Platelets (Bld) [#/Vol] 217 10*3/uL 150-450 [facility] Potassium measurement (mass/ volume)Ordered By: Shayy Curtis on 12-21-2024 Potassium (Unsp spec) [Mass/Vol] 3.8 mmol/L 3.3-5.1 [facility] RBC Auto (Bld) [#/Vol]Ordere d By: Shayy Curtis on 12-21-2024 RBC (Bld) [#/Vol] 4.13 10*6/uL Low 4.6-6.2 [facility] Serum creatinine measurement (mass/volume)Ordered By: Shayy Curtis on 12-21-2024 Creatinine [Mass/Vol] 0.66 mg/dL Low 0.70-1.20 [facility] Serum glucose measurement (m ass/volume)Ordered By: Shayy Curtis on 12-21-2024 Glucose [Mass/Vol] 86 mg/dL 70-99 [facility] Serum or plasma calcium alvaro urement (mass/volume)Ordered By: Shayy Curtis on 12-21-2024 Calcium [Mass/Vol] 8.6 mg/dL 7.6-11.0 [facility] Serum or plasma urea nitroge n measurement (mass/volume)Ordered By: Shayy Curtis on 12-21-2024 Urea nitrogen [Mass/Vol] 22 mg/dL High 4-19 [facility] Sodium levelOrdered By: Latrice Curtis on 12-21-2024 Sodium [Moles/Vol] 142 mmol/L 133-145 [facility] White blood cell (WBC) count Ordered By: Shayy Curtis on 12-21-2024 WBC (Bld) [#/Vol] 5.7 10*3/uL 4.4-11.0 [facility] normalized rat io (INR) calculationOrdered By: Shayy Curtis on 12-14-2024 INR Coag (Bld) [Relative time] 2.5 {INR} [facility] Prothrombin timeOrdered By: Shayy Curtis on 12-14-2024 PT Coag (PPP) [Time] 27.6 s High 11.7-14.9 [facility] normalized rat io (INR) measurement by fingerstickOrdered By: Shayy Curtis on 11-30-2024 INR Coag (BldC) [Relative time] 2.0 [facility] Comment on above: Critical Value > 4.0 Whole blood prothrombin time Ordered By: Shayy Curtis on 11-30-2024 PT Coag (Bld) [Time] 22.0 s High 11.7-14.9 [facility] Bilirubin directOrdered By: Shayy Curtis on 11-25-2024 Bilirubin.direct [Mass/Vol] 0.32 mg/dL High 0.00-0.30 [facility] Bilirubin, totalOrdered By: Shayy Curtis on 11-25-2024 Bilirubin [Mass/Vol] 0.63 mg/dL 0.00-1.30 [facility] Calculated very low density lipoprotein (VLDL) cholesterol measurementOrdered By: Shayy Curtis on 11-25-2024 Calculated very low density lipoprotein (VLDL) cholesterol measurement 10 mg/dL 5-40 [facility] LDL calc ser/plasOrdered By: Shayy Curtis on 11-25-2024 Cholesterol in LDL [Mass/Vol] 41 mg/dL [facility] Comment on above: Vfpmhylbqu=741-047 m g/dL & Higher Yybp=966 mg/dL or greaterFriedwald Equation for LDL-C Laboratory - Chemistry and C hemistry - challengeOrdered By: Shayy Curtis on 11-25-2024 AST [Catalytic activity/Vol] 24 U/L <38 [facility] Screening total cholesterol/ high density lipoprotein (HDL) cholesterol ratioOrdered By: Shayy Curtis on 11-25-2024 Cholesterol.total/Cho lesterol in HDL [Mass ratio] 2.59 {ratio} [facility] Serum globulin measurementOr dered By: Shayy Curtis on 11-25-2024 Globulin (S) [Mass/Vol] 2.3 g/dL 2.2-4.2 [facility] Serum or plasma alanine franks otransferase (ALT) measurementOrdered By: Shayy Curtis on 11-25-2024 ALT [Catalytic activity/Vol] 19 U/L <47 [facility] Serum or plasma albumin alvaro urement (mass/volume)Ordered By: Shayy Curtis on 11-25-2024 Albumin [Mass/Vol] 3.6 g/dL 3.4-4.8 [facility] Serum or plasma alkaline carole sphatase measurementOrdered By: Shayy Curtis on 11-25-2024 ALP [Catalytic activity/Vol] 119 U/L 40-129 [facility] Serum or plasma cholesterol in HDL measurement (mass/volume)Ordered By: Shayy Curtis on 11-25-2024 Cholesterol in HDL [Mass/Vol] 32 mg/dL Low >40 [facility] Comment on above: National Cholesterol Education Program (NCEP) guidelines:<40 mg/dL: Low HDL-cholesterol (major risk factor for CHD)>= 60 mg/dL: High HDL-cholesterol (negative risk factor for CHD)HDL-cholesterol is affected by a number of factors, e.g. smoking, exercise, hormones, sex and age. Serum or plasma cholesterol measurement (mass/volume)Ordered By: Shayy Curtis on 11-25-2024 Cholesterol [Mass/Vol] 83 mg/dL <201 [facility] Comment on above: Cholesterol level, D esirable <200 mg/dLBorderline high cholesterol 200-239 mg/dLHigh cholesterol >=240 mg/dLRecommendations of the NCEP Adult Treatment Panel for the following risk-cutoff thresholds for the [place] population. Total proteinOrdered By: Yazan Curtis on 11-25-2024 Protein [Mass/Vol] 5.8 g/dL Low 5.9-8.4 [facility] Triglycerides measurementOrd ered By: Shayy Curtis on 11-25-2024 Triglyceride [Mass/Vol] 49 mg/dL <199 [facility] Comment on above: The drugs N-Acetylcy steine and Metamizole may falsely depress this assay. Normal range: <150 mg/dLBorderline High: 150-199 mg/dLHigh: 200-499 mg/dLVery High: >500 mg/dL Absolute lymphocyte countOrd ered By: Shayy Curtis on 11-23-2024 Lymphocytes Auto (Unsp spec) [#/Vol] 1.15 10*3/uL 0.83-4.51 [facility] Absolute neutrophil countOrd ered By: Shayy Curtis on 11-23-2024 Neutrophils (Bld) [#/Vol] 4.4 10*3/uL 2.0-7.7 [facility] Anion gap in Serum or Plasma Ordered By: Shayy Curtis on 11-23-2024 Anion gap [Moles/Vol] 10 mmol/L 5-15 [facility] Automated lymphocyte count a s percentage of total leukocytesOrdered By: Shayy Curtis on 11-23-2024 Lymphocytes/100 WBC Auto (Unsp spec) 17.5 % Low 19-41 [facility] BUN/creatinine ratioOrdered By: Shayy Curtis on 11-23-2024 Urea nitrogen/Creatinine [Mass ratio] 23.9 mg/mg High 10-20 [facility] Basophil percentageOrdered B y: Shayy Curtis on 11-23-2024 Basophils/100 WBC (Bld) 0.9 % 0-1 [facility] Carbon dioxide, total [Moles /volume] in Central venous bloodOrdered By: Shayy Curtis on 11-23-2024 CO2 [Moles/Vol] 23.5 mmol/L 21.0-32.0 [facility] Chloride assayOrdered By: Hung Curtis on 11-23-2024 Chloride [Moles/Vol] 105 mmol/L 98-108 [facility] Eosinophil percentageOrdered By: baldomero Curtis on 11-23-2024 Eosinophils/100 WBC (Bld) 2.9 % 0-5 [facility] Erythrocyte distribution wid th ratioOrdered By: Shayy Curtis on 11-23-2024 Erythrocyte distribution width (RBC) [Ratio] 16.9 % High 11.6-14.6 [facility] Erythrocyte distribution wid th standard deviationOrdered By: Shayy Curtis on 11-23-2024 Erythrocyte distribution width (RBC) [Ratio] 50.4 fl High 35.1-43.9 [facility] Glomerular filtration rate ( GFR) estimation/1.73 sq m using serum, plasma, or whole bOrdered By: Shayy Curtis on 11-23-2024 GFR/1.73 sq M.predicted among non-blacks MDRD (S/P/Bld) [Vol rate/Area] 90 mL/min/{1.73_m2} >60 [facility] Comment on above: mL/min/1.73m2 CKD-EP I Creatinine Equation (2020) Hematocrit Auto (Bld) [Volum e fraction]Ordered By: Shayy Curtis on 11-23-2024 Hematocrit (Bld) [Volume fraction] 36.3 % Low 40-54 [facility] Hemoglobin measurementOrdere d By: Shayy Curtis on 11-23-2024 Hemoglobin (Bld) [Mass/Vol] 11.6 g/dL Low 13.0-16.5 [facility] Immature granulocytes/100 WB C Auto (Bld)Ordered By: Shayy Curtis 11-23-2024 Immature granulocytes/100 WBC (Bld) 0.300 % 0.0-0.9 [facility] Comment on above: IG% - Immature Granu locytes (promyelocytes, myelocytes and metamyelocytes) > 1% indicates that a LEFT SHIFT is Present. International normalized rat io (INR) calculationOrdered By: Shayy Curtis on 11-23-2024 INR Coag (Bld) [Relative time] 1.5 {INR} [facility] MCV (mean corpuscular volume ) determinationOrdered By: Shayy Curtis 11-23-2024 MCV (RBC) [Entitic vol] 82.1 fL 80-94 [facility] Mean corpuscular hemoglobin (MCH) determinationOrdered By: Shayy Curtis on 11-23-2024 MCH (RBC) [Entitic mass] 26.2 pg Low 27.0-32.0 [facility] Mean corpuscular hemoglobin concentration (MCHC) determinationOrdered By: Shayy Curtis on 11-23-2024 MCHC (RBC) [Mass/Vol] 32.0 g/dL 32-36 [facility] Mean platelet volume determi nationOrdered By: Shayy Curtis on 11-23-2024 Platelet mean volume (Bld) [Entitic vol] 10.0 fL 6.2-12.0 [facility] Monocyte percentageOrdered B y: Shayy Curtis on 11-23-2024 Monocytes/100 WBC (Bld) 11.3 % High 0-10 [facility] Neutrophil percentageOrdered By: Shayy Curtis on 11-23-2024 Neutrophils/100 WBC (Bld) 67.1 % 47-70 [facility] Nucleated red blood cell per centageOrdered By: Shayy Curtis on 11-23-2024 Nucleated RBC/100 WBC (Bld) [Ratio] 0 % 0-5 [facility] Platelet countOrdered By: Hung Curtis on 11-23-2024 Platelets (Bld) [#/Vol] 245 10*3/uL 150-450 [facility] Potassium measurement (mass/ volume)Ordered By: Shayy Curtis on 11-23-2024 Potassium (Unsp spec) [Mass/Vol] 4.0 mmol/L 3.3-5.1 [facility] Prothrombin timeOrdered By: Shayy Curtis on 11-23-2024 PT Coag (PPP) [Time] 17.9 s High 11.7-14.9 [facility] RBC Auto (Bld) [#/Vol]Ordere d By: Shayy Curtis on 11-23-2024 RBC (Bld) [#/Vol] 4.42 10*6/uL Low 4.6-6.2 [facility] Serum creatinine measurement (mass/volume)Ordered By: Shayy Curtis on 11-23-2024 Creatinine [Mass/Vol] 0.65 mg/dL Low 0.70-1.20 [facility] Serum glucose measurement (m ass/volume)Ordered By: Shayy Curtis on 11-23-2024 Glucose [Mass/Vol] 103 mg/dL High 70-99 [facility] Serum or plasma calcium alvaro urement (mass/volume)Ordered By: Shayy Curtis on 11-23-2024 Calcium [Mass/Vol] 8.9 mg/dL 7.6-11.0 [facility] Serum or plasma urea nitroge n measurement (mass/volume)Ordered By: Shayy Curtis on 11-23-2024 Urea nitrogen [Mass/Vol] 16 mg/dL 4-19 [facility] Sodium levelOrdered By: Latrice simonmaira Ever on 11-23-2024 Sodium [Moles/Vol] 139 mmol/L 133-145 [facility] White blood cell (WBC) count Ordered By: Shayy Curtis on 11-23-2024 WBC (Bld) [#/Vol] 6.6 10*3/uL 4.4-11.0 [facility] Absolute lymphocyte countOrd ered By: Shayy Curtis on 11-02-2024 Lymphocytes Auto (Unsp spec) [#/Vol] 1.10 10*3/uL 0.83-4.51 [facility] Absolute neutrophil countOrd ered By: Shayy Curtis on 11-02-2024 Neutrophils (Bld) [#/Vol] 6.2 10*3/uL 2.0-7.7 [facility] Anion gap in Serum or Plasma Ordered By: Shayy Curtis on 11-02-2024 Anion gap [Moles/Vol] 10 mmol/L 5-15 [facility] Automated lymphocyte count a s percentage of total leukocytesOrdered By: Shayy Curtis on 11-02-2024 Lymphocytes/100 WBC Auto (Unsp spec) 13.5 % Low 19-41 [facility] BUN/creatinine ratioOrdered By: Shayy Curtis on 11-02-2024 Urea nitrogen/Creatinine [Mass ratio] 30.4 mg/mg High 10-20 [facility] Basophil percentageOrdered B y: Shayy Curtis on 11-02-2024 Basophils/100 WBC (Bld) 0.5 % 0-1 [facility] Carbon dioxide, total [Moles /volume] in Central venous bloodOrdered By: Shayy Curtis on 11-02-2024 CO2 [Moles/Vol] 22.3 mmol/L 21.0-32.0 [facility] Chloride assayOrdered By: Hung Curtis on 11-02-2024 Chloride [Moles/Vol] 106 mmol/L 98-108 [facility] Eosinophil percentageOrdered By: Shayy Curtis on 11-02-2024 Eosinophils/100 WBC (Bld) 1.4 % 0-5 [facility] Erythrocyte distribution wid th ratioOrdered By: Shayy Curtis on 11-02-2024 Erythrocyte distribution width (RBC) [Ratio] 18.0 % High 11.6-14.6 [facility] Erythrocyte distribution wid th standard deviationOrdered By: Shayy Curtis on 11-02-2024 Erythrocyte distribution width (RBC) [Ratio] 53.7 fl High 35.1-43.9 [facility] Glomerular filtration rate ( GFR) estimation/1.73 sq m using serum, plasma, or whole bOrdered By: Shayy Curtis on 11-02-2024 GFR/1.73 sq M.predicted among non-blacks MDRD (S/P/Bld) [Vol rate/Area] 91 mL/min/{1.73_m2} >60 [facility] Comment on above: mL/min/1.73m2 CKD-EP I Creatinine Equation (2020) Hematocrit Auto (Bld) [Volum e fraction]Ordered By: Shayy Curtis on 11-02-2024 Hematocrit (Bld) [Volume fraction] 35.3 % Low 40-54 [facility] Hemoglobin measurementOrdere d By: Shayy Curtis on 11-02-2024 Hemoglobin (Bld) [Mass/Vol] 11.2 g/dL Low 13.0-16.5 [facility] Immature granulocytes/100 WB C Auto (Bld)Ordered By: Shayy Curtis on 11-02-2024 Immature granulocytes/100 WBC (Bld) 0.400 % 0.0-0.9 [facility] Comment on above: IG% - Immature Granu locytes (promyelocytes, myelocytes and metamyelocytes) > 1% indicates that a LEFT SHIFT is Present. MCV (mean corpuscular volume ) determinationOrdered By: Hungbaldomero Curtis on 11-02-2024 MCV (RBC) [Entitic vol] 81.5 fL 80-94 [facility] Mean corpuscular hemoglobin (MCH) determinationOrdered By: [facility] Baldwinirlanda Salazartmoyradha on 11-02-2024 MCH (RBC) [Entitic mass] 25.9 pg Low 27.0-32.0 [facility] Mean corpuscular hemoglobin concentration (MCHC) determinationOrdered By: hollietampairlanda Salazartomyradha on 11-02-2024 MCHC (RBC) [Mass/Vol] 31.7 g/dL Low 32-36 [facility] Mean platelet volume determi nationOrdered By: hollietampairlanda Salazartomyradha on 11-02-2024 Platelet mean volume (Bld) [Entitic vol] 10.3 fL 6.2-12.0 [facility] Monocyte percentageOrdered B y: Shayy Curtis on 11-02-2024 Monocytes/100 WBC (Bld) 7.7 % 0-10 [facility] Neutrophil percentageOrdered By: [facility] Martinradha on 11-02-2024 Neutrophils/100 WBC (Bld) 76.5 % High 47-70 [facility] Nucleated red blood cell per centageOrdered By: hollietampairlanda Salazartomyradha on 11-02-2024 Nucleated RBC/100 WBC (Bld) [Ratio] 0 % 0-5 [facility] Platelet countOrdered By: hollietampairlanda Salazartomyradha on 11-02-2024 Platelets (Bld) [#/Vol] 225 10*3/uL 150-450 [facility] Potassium measurement (mass/ volume)Ordered By: hollietampairlanda Curtis on 11-02-2024 Potassium (Unsp spec) [Mass/Vol] 3.9 mmol/L 3.3-5.1 [facility] RBC Auto (Bld) [#/Vol]Ordere d By: Shayy Curtis on 11-02-2024 RBC (Bld) [#/Vol] 4.33 10*6/uL Low 4.6-6.2 [facility] Serum creatinine measurement (mass/volume)Ordered By: Shayy Curtis on 11-02-2024 Creatinine [Mass/Vol] 0.62 mg/dL Low 0.70-1.20 [facility] Serum glucose measurement (m ass/volume)Ordered By: Shayy Curtis on 11-02-2024 Glucose [Mass/Vol] 110 mg/dL High 70-99 [facility] Serum or plasma calcium alvaro urement (mass/volume)Ordered By: Shayy Curtis on 11-02-2024 Calcium [Mass/Vol] 8.7 mg/dL 7.6-11.0 [facility] Serum or plasma urea nitroge n measurement (mass/volume)Ordered By: Shayy Curtis on 11-02-2024 Urea nitrogen [Mass/Vol] 19 mg/dL 4-19 [facility] Sodium levelOrdered By: Latrice simonmaira Ever on 11-02-2024 Sodium [Moles/Vol] 139 mmol/L 133-145 [facility] White blood cell (WBC) count Ordered By: Shayy Curtsi on 11-02-2024 WBC (Bld) [#/Vol] 8.1 10*3/uL 4.4-11.0 [facility] normalized rat io (INR) measurement by fingerstickOrdered By: Shayy Curtis on 10-31-2024 INR Coag (BldC) [Relative time] 1.8 [facility] Comment on above: Critical Value > 4.0 Whole blood prothrombin time Ordered By: Shayy Curtis on 10-31-2024 PT Coag (Bld) [Time] 20.2 s High 11.7-14.9 [facility] normalized rat io (INR) measurement by fingerstickOrdered By: Shayy Curtis on 10-06-2024 INR Coag (BldC) [Relative time] 2.1 [facility] Comment on above: Critical Value > 4.0 Whole blood prothrombin time Ordered By: Shayy Curtis on 10-06-2024 PT Coag (Bld) [Time] 22.6 s High 11.7-14.9 [facility] Absolute lymphocyte countOrd ered By: Shayy Curtis on 10-05-2024 Lymphocytes Auto (Unsp spec) [#/Vol] 1.54 10*3/uL 0.83-4.51 [facility] [facility] Absolute [facility] countOrd ered By: Shayy Curtis on 10-05-2024 Neutrophils (Bld) [#/Vol] 4.2 10*3/uL 2.0-7.7 [facility] Anion gap in Serum or Plasma Ordered By: Shayy Curtis on 10-05-2024 Anion gap [Moles/Vol] 10 mmol/L 5-15 [facility] Automated lymphocyte count a s percentage of total leukocytesOrdered By: Shayy Curtis on 10-05-2024 Lymphocytes/100 WBC Auto (Unsp spec) 23.8 % 19-41 [facility] BUN/creatinine ratioOrdered By: baldomero Curtis on 10-05-2024 Urea nitrogen/Creatinine [Mass ratio] 18.2 mg/mg 10-20 [facility] Basophil percentageOrdered B y: Shayy Curtis on 10-05-2024 Basophils/100 WBC (Bld) 0.6 % 0-1 [facility] Carbon dioxide, total [Moles /volume] in Central venous bloodOrdered By: Shayy Curtis on 10-05-2024 CO2 [Moles/Vol] 24.6 mmol/L 21.0-32.0 [facility] Chloride assayOrdered By: Hung Curtis on 10-05-2024 Chloride [Moles/Vol] 106 mmol/L 98-108 [facility] Eosinophil percentageOrdered By: Shayy Curtis on 10-05-2024 Eosinophils/100 WBC (Bld) 1.9 % 0-5 [facility] Erythrocyte distribution wid th ratioOrdered By: Shayy Curtis on 10-05-2024 Erythrocyte distribution width (RBC) [Ratio] 18.2 % High 11.6-14.6 [facility] Erythrocyte distribution wid th standard deviationOrdered By: Shayy Curtis on 10-05-2024 Erythrocyte distribution width (RBC) [Ratio] 52.4 fl High 35.1-43.9 [facility] Glomerular filtration rate ( GFR) estimation/1.73 sq m using serum, plasma, or whole bOrdered By: Shayy Curtis on 10-05-2024 GFR/1.73 sq M.predicted among non-blacks MDRD (S/P/Bld) [Vol rate/Area] 87 mL/min/{1.73_m2} >60 [facility] Comment on above: mL/min/1.73m2 CKD-EP I Creatinine Equation (2020) Hematocrit Auto (Bld) [Volum e fraction]Ordered By: Shayy Curtis on 10-05-2024 Hematocrit (Bld) [Volume fraction] 35.0 % Low 40-54 [facility] Hemoglobin measurementOrdere d By: Shayy Curtis on 10-05-2024 Hemoglobin (Bld) [Mass/Vol] 11.0 g/dL Low 13.0-16.5 [facility] Immature granulocytes/100 WB C Auto (Bld)Ordered By: Shayy Curtis 10-05-2024 Immature granulocytes/100 WBC (Bld) 0.300 % 0.0-0.9 [facility] Comment on above: IG% - Immature Granu locytes (promyelocytes, myelocytes and metamyelocytes) > 1% indicates that a LEFT SHIFT is Present. MCV (mean corpuscular volume ) determinationOrdered By: Shayy Curtis 10-05-2024 MCV (RBC) [Entitic vol] 78.8 fL Low 80-94 [facility] Mean corpuscular hemoglobin (MCH) determinationOrdered By: baldomero Curtis 10-05-2024 MCH (RBC) [Entitic mass] 24.8 pg Low 27.0-32.0 [facility] Mean corpuscular hemoglobin concentration (MCHC) determinationOrdered By: Shayy Curtis 10-05-2024 MCHC (RBC) [Mass/Vol] 31.4 g/dL Low 32-36 [facility] Mean platelet volume determi nationOrdered By: Shayy Curtis on 10-05-2024 Platelet mean volume (Bld) [Entitic vol] 10.3 fL 6.2-12.0 [facility] Monocyte percentageOrdered B y: Shayy Salazartomyradha on 10-05-2024 Monocytes/100 WBC (Bld) 8.5 % 0-10 [facility] Neutrophil percentageOrdered By: Shayy Salazartomyradha on 10-05-2024 Neutrophils/100 WBC (Bld) 64.9 % 47-70 [facility] Nucleated red blood cell per centageOrdered By: Shayy Salazartomyradha on 10-05-2024 Nucleated RBC/100 WBC (Bld) [Ratio] 0 % 0-5 [facility] Platelet countOrdered By: Hung hollietimmy Curtis on 10-05-2024 Platelets (Bld) [#/Vol] 235 10*3/uL 150-450 [facility] Potassium measurement (mass/ volume)Ordered By: Shayy Curtis on 10-05-2024 Potassium (Unsp spec) [Mass/Vol] 4.1 mmol/L 3.3-5.1 [facility] RBC Auto (Bld) [#/Vol]Ordere d By: Shayy Curtis on 10-05-2024 RBC (Bld) [#/Vol] 4.44 10*6/uL Low 4.6-6.2 [facility] Serum creatinine measurement (mass/volume)Ordered By: Shayy Curtis on 10-05-2024 Creatinine [Mass/Vol] 0.73 mg/dL 0.70-1.20 [facility] Serum glucose measurement (m ass/volume)Ordered By: Shayy Curtis on 10-05-2024 Glucose [Mass/Vol] 90 mg/dL 70-99 [facility] Serum or plasma calcium alvaro urement (mass/volume)Ordered By: Shayy Curtis on 10-05-2024 Calcium [Mass/Vol] 8.7 mg/dL 7.6-11.0 [facility] Serum or plasma urea nitroge n measurement (mass/volume)Ordered By: Hungbaldomero Salazartomyradha on 10-05-2024 Urea nitrogen [Mass/Vol] 13 mg/dL 4-19 [facility] Sodium levelOrdered By: Latrice warner Martintomyradha on 10-05-2024 Sodium [Moles/Vol] 140 mmol/L 133-145 [facility] White blood cell (WBC) count Ordered By: Hunghollietimmy Martinsergio on 10-05-2024 WBC (Bld) [#/Vol] 6.5 10*3/uL 4.4-11.0 [facility] International normalized rat io (INR) calculationOrdered By: Hunghollierobsonirlanda Salazartomyradha on 09-29-2024 INR Coag (Bld) [Relative time] 3.3 {INR} [facility] Prothrombin timeOrdered By: Hunghollierobsonirlanda Salazartomyradha on 09-29-2024 PT Coag (PPP) [Time] 34.4 s High 11.7-14.9 [facility] Absolute lymphocyte countOrd ered By: Hunghollierobsonirlanda Salazartomyradha on 09-28-2024 Lymphocytes Auto (Unsp spec) [#/Vol] 1.41 10*3/uL 0.83-4.51 [facility] Absolute neutrophil countOrd ered By: Hunghollierobsonirlanda Salazartomyradha on 09-28-2024 Neutrophils (Bld) [#/Vol] 4.8 10*3/uL 2.0-7.7 [facility] Anion gap in Serum or Plasma Ordered By: Hunghollietimmy Martintomyradha on 09-28-2024 Anion gap [Moles/Vol] 13 mmol/L 5-15 [facility] Automated lymphocyte count a s percentage of total leukocytesOrdered By: Hungbaldomero Salazartomyradha on 09-28-2024 Lymphocytes/100 WBC Auto (Unsp spec) 20.1 % 19-41 [facility] BUN/creatinine ratioOrdered By: baldomero Salazartomyradha on 09-28-2024 Urea nitrogen/Creatinine [Mass ratio] 19.9 mg/mg 10-20 [facility] Basophil percentageOrdered B y: Christineirlanda Salazartomyradha on 09-28-2024 Basophils/100 WBC (Bld) 0.6 % 0-1 [facility] Carbon dioxide, total [Moles /volume] in Central venous bloodOrdered By: Shayy Curtis on 09-28-2024 CO2 [Moles/Vol] 21.1 mmol/L 21.0-32.0 [facility] Chloride assayOrdered By: Hung Curtis on 09-28-2024 Chloride [Moles/Vol] 105 mmol/L 98-108 [facility] Eosinophil percentageOrdered By: Shayy Curtis on 09-28-2024 Eosinophils/100 WBC (Bld) 2.0 % 0-5 [facility] Erythrocyte distribution wid th ratioOrdered By: baldomero Curtis on 09-28-2024 Erythrocyte distribution width (RBC) [Ratio] 18.3 % High 11.6-14.6 [facility] Erythrocyte distribution wid th standard deviationOrdered By: hollietampairlanda Curtis on 09-28-2024 Erythrocyte distribution width (RBC) [Ratio] 52.8 fl High 35.1-43.9 [facility] Glomerular filtration rate ( GFR) estimation/1.73 sq m using serum, plasma, or whole bOrdered By: Shayy Curtis on 09-28-2024 GFR/1.73 sq M.predicted among non-blacks MDRD (S/P/Bld) [Vol rate/Area] 88 mL/min/{1.73_m2} >60 [facility] Comment on above: mL/min/1.73m2 CKD-EP I Creatinine Equation (2020) Hematocrit Auto (Bld) [Volum e fraction]Ordered By: Shayy Curtis on 09-28-2024 Hematocrit (Bld) [Volume fraction] 37.0 % Low 40-54 [facility] Hemoglobin measurementOrdere d By: Shayy Curtis on 09-28-2024 Hemoglobin (Bld) [Mass/Vol] 11.5 g/dL Low 13.0-16.5 [facility] Immature granulocytes/100 WB C Auto (Bld)Ordered By: Shayy Curtis on 09-28-2024 Immature granulocytes/100 WBC (Bld) 0.300 % 0.0-0.9 [facility] Comment on above: IG% - Immature Granu locytes (promyelocytes, myelocytes and metamyelocytes) > 1% indicates that a LEFT SHIFT is Present. MCV (mean corpuscular volume ) determinationOrdered By: Shayy Curtis on 09-28-2024 MCV (RBC) [Entitic vol] 80.3 fL 80-94 [facility] Mean corpuscular hemoglobin (MCH) determinationOrdered By: Shayy Curtis on 09-28-2024 MCH (RBC) [Entitic mass] 24.9 pg Low 27.0-32.0 [facility] Mean corpuscular hemoglobin concentration (MCHC) determinationOrdered By: Shayy Curtis on 09-28-2024 MCHC (RBC) [Mass/Vol] 31.1 g/dL Low 32-36 [facility] Mean platelet volume determi nationOrdered By: Shayy Curtis on 09-28-2024 Platelet mean volume (Bld) [Entitic vol] 10.5 fL 6.2-12.0 [facility] Monocyte percentageOrdered B y: Shayy Curtis on 09-28-2024 Monocytes/100 WBC (Bld) 8.8 % 0-10 [facility] Neutrophil percentageOrdered By: hollietampairlanda Curtis on 09-28-2024 Neutrophils/100 WBC (Bld) 68.2 % 47-70 [facility] Nucleated red blood cell per centageOrdered By: Shayy Curtis on 09-28-2024 Nucleated RBC/100 WBC (Bld) [Ratio] 0 % 0-5 [facility] Platelet countOrdered By: Hung hollietimmy Curtis on 09-28-2024 Platelets (Bld) [#/Vol] 280 10*3/uL 150-450 [facility] Potassium measurement (mass/ volume)Ordered By: Shayy Curtis on 09-28-2024 Potassium (Unsp spec) [Mass/Vol] 4.0 mmol/L 3.3-5.1 [facility] RBC Auto (Bld) [#/Vol]Ordere d By: Shayy Curtis on 09-28-2024 RBC (Bld) [#/Vol] 4.61 10*6/uL 4.6-6.2 [facility] Serum creatinine measurement (mass/volume)Ordered By: Shayy Curtis on 09-28-2024 Creatinine [Mass/Vol] 0.71 mg/dL 0.70-1.20 [facility] Serum glucose measurement (m ass/volume)Ordered By: Shayy Curtis on 09-28-2024 Glucose [Mass/Vol] 91 mg/dL 70-99 [facility] Serum or plasma calcium alvaro urement (mass/volume)Ordered By: Shayy Curtis on 09-28-2024 Calcium [Mass/Vol] 8.9 mg/dL 7.6-11.0 [facility] Serum or plasma urea nitroge n measurement (mass/volume)Ordered By: Shayy Curtis on 09-28-2024 Urea nitrogen [Mass/Vol] 14 mg/dL 4-19 [facility] Sodium levelOrdered By: Latrice Curtis on 09-28-2024 Sodium [Moles/Vol] 140 mmol/L 133-145 [facility] White blood cell (WBC) count Ordered By: Shayy Curtis on 09-28-2024 WBC (Bld) [#/Vol] 7.0 10*3/uL 4.4-11.0 [facility] International normalized rat io (INR) measurement by fingerstickOrdered By: Shayy Curtis on 09-26-2024 INR Coag (BldC) [Relative time] 2.5 [facility] Comment on above: Critical Value > 4.0 Whole blood prothrombin time Ordered By: Shayy Curtis on 09-26-2024 PT Coag (Bld) [Time] 27.1 s High 11.7-14.9 [facility] normalized rat io (INR) calculationOrdered By: Shayy Curtis on 09-23-2024 INR Coag (Bld) [Relative time] 2.0 {INR} [facility] Prothrombin timeOrdered By: Shayy Curtis on 09-23-2024 PT Coag (PPP) [Time] 23.5 s High 11.7-14.9 [facility] Absolute lymphocyte countOrd ered By: Shayy Curtis on 09-21-2024 Lymphocytes Auto (Unsp spec) [#/Vol] 1.35 10*3/uL 0.83-4.51 [facility] Absolute neutrophil countOrd ered By: hollietampairlanda Curtis on 09-21-2024 Neutrophils (Bld) [#/Vol] 4.3 10*3/uL 2.0-7.7 [facility] Anion gap in Serum or Plasma Ordered By: Latricetampairlanda Curtis on 09-21-2024 Anion gap [Moles/Vol] 12 mmol/L 5-15 [facility] Automated lymphocyte count a s percentage of total leukocytesOrdered By: Latricetampairlanda Curtis on 09-21-2024 Lymphocytes/100 WBC Auto (Unsp spec) 21.5 % 19-41 [facility] BUN/creatinine ratioOrdered By: [facility] Baldwinirlanda Salazarradha on 09-21-2024 Urea nitrogen/Creatinine [Mass ratio] 15.8 mg/mg 10-20 [facility] Basophil percentageOrdered B y: Shayy Curtis on 09-21-2024 Basophils/100 WBC (Bld) 0.8 % 0-1 [facility] CNPNon 09-21-2024 [facility] ROBY FLORES ([id number]) 1935 M Date Time Provider Department 09/21/24 [facility] During your visit today, we recorded the following information about you: Petty Vargas 09/21/2024 9:23 AM Signed [facility] rehabilitation. Maria Guadalupe states that he [...] Status:Closed by MARTA PALACIO on 09/22/24 Normal [facility] Carbon dioxide, total [Moles /volume] in Central venous bloodOrdered By: Shayy Curtis on 09-21-2024 CO2 [Moles/Vol] 23.2 mmol/L 21.0-32.0 [facility] Chloride assayOrdered By: Hung Curtis on 09-21-2024 Chloride [Moles/Vol] 104 mmol/L 98-108 [facility] Eosinophil percentageOrdered By: Shayy Curtis on 09-21-2024 Eosinophils/100 WBC (Bld) 1.3 % 0-5 [facility] Erythrocyte distribution wid th ratioOrdered By: Shayy Curtis on 09-21-2024 Erythrocyte distribution width (RBC) [Ratio] 18.0 % High 11.6-14.6 [facility] Erythrocyte distribution wid th standard deviationOrdered By: Shayy Curtis on 09-21-2024 Erythrocyte distribution width (RBC) [Ratio] 50.8 fl High 35.1-43.9 [facility] Glomerular filtration rate ( GFR) estimation/1.73 sq m using serum, plasma, or whole bOrdered By: Shayy Curtis on 09-21-2024 GFR/1.73 sq M.predicted among non-blacks MDRD (S/P/Bld) [Vol rate/Area] 88 mL/min/{1.73_m2} >60 [facility] Comment on above: mL/min/1.73m2 CKD-EP I Creatinine Equation (2020) Hematocrit Auto (Bld) [Volum e fraction]Ordered By: Shayy Curtis on 09-21-2024 Hematocrit (Bld) [Volume fraction] 37.5 % Low 40-54 [facility] Hemoglobin measurementOrdere d By: Shayy Curtis on 09-21-2024 Hemoglobin (Bld) [Mass/Vol] 11.6 g/dL Low 13.0-16.5 [facility] Immature granulocytes/100 WB C Auto (Bld)Ordered By: Shayy Curtis on 09-21-2024 Immature granulocytes/100 WBC (Bld) 0.300 % 0.0-0.9 [facility] Comment on above: IG% - Immature Granu locytes (promyelocytes, myelocytes and metamyelocytes) > 1% indicates that a LEFT SHIFT is Present. International normalized rat io (INR) calculationOrdered By: Shayy Curtis on 09-21-2024 INR Coag (Bld) [Relative time] 1.7 {INR} [facility] MCV (mean corpuscular volume ) determinationOrdered By: Shayy Curtis 09-21-2024 MCV (RBC) [Entitic vol] 78.9 fL Low 80-94 [facility] Mean corpuscular hemoglobin (MCH) determinationOrdered By: Shayy Curtis on 09-21-2024 MCH (RBC) [Entitic mass] 24.4 pg Low 27.0-32.0 [facility] Mean corpuscular hemoglobin concentration (MCHC) determinationOrdered By: Shayy Curtis on 09-21-2024 MCHC (RBC) [Mass/Vol] 30.9 g/dL Low 32-36 [facility] Mean platelet volume determi nationOrdered By: Shayy Curtis on 09-21-2024 Platelet mean volume (Bld) [Entitic vol] 10.1 fL 6.2-12.0 [facility] Monocyte percentageOrdered B y: Shayy Curtis on 09-21-2024 Monocytes/100 WBC (Bld) 8.1 % 0-10 [facility] Neutrophil percentageOrdered By: Shayy Curtis on 09-21-2024 Neutrophils/100 WBC (Bld) 68.0 % 47-70 [facility] Nucleated red blood cell per centageOrdered By: Shayy Curtis on 09-21-2024 Nucleated RBC/100 WBC (Bld) [Ratio] 0 % 0-5 [facility] Platelet countOrdered By: Hung Curtis on 09-21-2024 Platelets (Bld) [#/Vol] 318 10*3/uL 150-450 [facility] Potassium measurement (mass/ volume)Ordered By: Shayy Curtis on 09-21-2024 Potassium (Unsp spec) [Mass/Vol] 4.0 mmol/L 3.3-5.1 [facility] Prothrombin timeOrdered By: Shayy Curtis on 09-21-2024 PT Coag (PPP) [Time] 20.6 s High 11.7-14.9 [facility] RBC Auto (Bld) [#/Vol]Ordere d By: Shayy Curtis on 09-21-2024 RBC (Bld) [#/Vol] 4.75 10*6/uL 4.6-6.2 [facility] Serum creatinine measurement (mass/volume)Ordered By: Shayy Curtis on 09-21-2024 Creatinine [Mass/Vol] 0.70 mg/dL 0.70-1.20 [facility] Serum glucose measurement (m ass/volume)Ordered By: Shayy Curtis on 09-21-2024 Glucose [Mass/Vol] 101 mg/dL High 70-99 [facility] Serum or plasma calcium alvaro urement (mass/volume)Ordered By: Shayy Curtis on 09-21-2024 Calcium [Mass/Vol] 9.2 mg/dL 7.6-11.0 [facility] Serum or plasma urea nitroge n measurement (mass/volume)Ordered By: Shayy Curtis on 09-21-2024 Urea nitrogen [Mass/Vol] 11 mg/dL 4-19 [facility] Sodium levelOrdered By: Latrice simonraffiradha Curtis on 09-21-2024 Sodium [Moles/Vol] 139 mmol/L 133-145 [facility] White blood cell (WBC) count Ordered By: Shayy Curtis on 09-21-2024 WBC (Bld) [#/Vol] 6.3 10*3/uL 4.4-11.0 [facility] International normalized rat io (INR) measurement by fingerstickOrdered By: Shayy Curtis on 09-19-2024 INR Coag (BldC) [Relative time] 1.9 [facility] Comment on above: Critical Value > 4.0 Whole blood prothrombin time Ordered By: Shayy Curtis on 09-19-2024 PT Coag (Bld) [Time] 21.5 s High 11.7-14.9 [facility] normalized rat io (INR) calculationOrdered By: Shayy Curtis on 09-15-2024 INR Coag (Bld) [Relative time] 2.1 {INR} [facility] Prothrombin timeOrdered By: Shayy Curtis on 09-15-2024 PT Coag (PPP) [Time] 24.2 s High 11.7-14.9 [facility] Absolute lymphocyte countOrd ered By: Shayy Curtis on 09-14-2024 Lymphocytes Auto (Unsp spec) [#/Vol] 1.57 10*3/uL 0.83-4.51 [facility] Absolute neutrophil countOrd ered By: Shayy Curtis on 09-14-2024 Neutrophils (Bld) [#/Vol] 5.1 10*3/uL 2.0-7.7 [facility] Anion gap in Serum or Plasma Ordered By: Shayy Curtis on 09-14-2024 Anion gap [Moles/Vol] 12 mmol/L 5-15 [facility] Automated lymphocyte count a s percentage of total leukocytesOrdered By: Shayy Curtis on 09-14-2024 Lymphocytes/100 WBC Auto (Unsp spec) 20.8 % 19-41 [facility] BUN/creatinine ratioOrdered By: Shayy Curtis on 09-14-2024 Urea nitrogen/Creatinine [Mass ratio] 21.8 mg/mg High 10-20 [facility] Basophil percentageOrdered B y: Shayy Curtis on 09-14-2024 Basophils/100 WBC (Bld) 1.1 % High 0-1 [facility] Carbon dioxide, total [Moles /volume] in Central venous bloodOrdered By: Shayy Curtis on 09-14-2024 CO2 [Moles/Vol] 21.8 mmol/L 21.0-32.0 [facility] Chloride assayOrdered By: Hung Curtis on 09-14-2024 Chloride [Moles/Vol] 107 mmol/L 98-108 [facility] Eosinophil percentageOrdered By: Shayy Curtis on 09-14-2024 Eosinophils/100 WBC (Bld) 1.7 % 0-5 [facility] Erythrocyte distribution wid th ratioOrdered By: Shayy Curtis on 09-14-2024 Erythrocyte distribution width (RBC) [Ratio] 17.7 % High 11.6-14.6 [facility] Erythrocyte distribution wid th standard deviationOrdered By: Shayy Curtis on 09-14-2024 Erythrocyte distribution width (RBC) [Ratio] 51.1 fl High 35.1-43.9 [facility] Glomerular filtration rate ( GFR) estimation/1.73 sq m using serum, plasma, or whole bOrdered By: Shayy Curtis on 09-14-2024 GFR/1.73 sq M.predicted among non-blacks MDRD (S/P/Bld) [Vol rate/Area] 87 mL/min/{1.73_m2} >60 [facility] Comment on above: mL/min/1.73m2 CKD-EP I Creatinine Equation (2020) Hematocrit Auto (Bld) [Volum e fraction]Ordered By: Shayy Curtis on 09-14-2024 Hematocrit (Bld) [Volume fraction] 34.7 % Low 40-54 [facility] Hemoglobin measurementOrdere d By: Shayy Curtis on 09-14-2024 Hemoglobin (Bld) [Mass/Vol] 10.7 g/dL Low 13.0-16.5 [facility] Immature granulocytes/100 WB C Auto (Bld)Ordered By: hollietampairlanda Curtis on 09-14-2024 Immature granulocytes/100 WBC (Bld) 0.400 % 0.0-0.9 [facility] Comment on above: IG% - Immature Granu locytes (promyelocytes, myelocytes and metamyelocytes) > 1% indicates that a LEFT SHIFT is Present. MCV (mean corpuscular volume ) determinationOrdered By: Shayy Curtis on 09-14-2024 MCV (RBC) [Entitic vol] 78.9 fL Low 80-94 [facility] Mean corpuscular hemoglobin (MCH) determinationOrdered By: Shayy Curtis on 09-14-2024 MCH (RBC) [Entitic mass] 24.3 pg Low 27.0-32.0 [facility] Mean corpuscular hemoglobin concentration (MCHC) determinationOrdered By: baldomero Curtis on 09-14-2024 MCHC (RBC) [Mass/Vol] 30.8 g/dL Low 32-36 [facility] Mean platelet volume determi nationOrdered By: Shayy Curtis on 09-14-2024 Platelet mean volume (Bld) [Entitic vol] 10.6 fL 6.2-12.0 [facility] Monocyte percentageOrdered B y: Shayy Curtis on 09-14-2024 Monocytes/100 WBC (Bld) 8.5 % 0-10 [facility] Neutrophil percentageOrdered By: Shayy Curtis on 09-14-2024 Neutrophils/100 WBC (Bld) 67.5 % 47-70 [facility] Nucleated red blood cell per centageOrdered By: Shayy Curtis on 09-14-2024 Nucleated RBC/100 WBC (Bld) [Ratio] 0 % 0-5 [facility] Platelet countOrdered By: Hung Curtis on 09-14-2024 Platelets (Bld) [#/Vol] 291 10*3/uL 150-450 [facility] Potassium measurement (mass/ volume)Ordered By: Shayy Curtis on 09-14-2024 Potassium (Unsp spec) [Mass/Vol] 4.0 mmol/L 3.3-5.1 [facility] RBC Auto (Bld) [#/Vol]Ordere d By: Shayy Curtis on 09-14-2024 RBC (Bld) [#/Vol] 4.40 10*6/uL Low 4.6-6.2 [facility] Serum creatinine measurement (mass/volume)Ordered By: Shayy Curtis on 09-14-2024 Creatinine [Mass/Vol] 0.74 mg/dL 0.70-1.20 [facility] Serum glucose measurement (m ass/volume)Ordered By: Shayy Curtis on 09-14-2024 Glucose [Mass/Vol] 99 mg/dL 70-99 [facility] Serum or plasma calcium alvaro urement (mass/volume)Ordered By: Shayy Curtis on 09-14-2024 Calcium [Mass/Vol] 8.6 mg/dL 7.6-11.0 [facility] Serum or plasma urea nitroge n measurement (mass/volume)Ordered By: Shayy Curtis on 09-14-2024 Urea nitrogen [Mass/Vol] 16 mg/dL 4-19 [facility] Sodium levelOrdered By: Latrice Curtis on 09-14-2024 Sodium [Moles/Vol] 141 mmol/L 133-145 [facility] White blood cell (WBC) count Ordered By: Shayy Curtis on 09-14-2024 WBC (Bld) [#/Vol] 7.5 10*3/uL 4.4-11.0 [facility] International normalized rat io (INR) measurement by fingerstickOrdered By: Shayy Curtis on 09-12-2024 INR Coag (BldC) [Relative time] 3.2 [facility] Comment on above: Critical Value > 4.0 Whole blood prothrombin time Ordered By: Shayy Curtis on 09-12-2024 PT Coag (Bld) [Time] 33.0 s High 11.7-14.9 [facility] normalized rat io (INR) measurement by fingerstickOrdered By: Shayy Curtis on 09-08-2024 INR Coag (BldC) [Relative time] 2.2 [facility] Comment on above: Critical Value > 4.0 Prothrombin Time w/INRon INR Normal [facility] Comment on above: Result Comment: Canc elled via OM: Order cancelled - Patient discharged Performed By: #### L 300.3900 #### [facility] [address] [place], [place], [id number] PROTIME Normal 11.7-14.9 [facility] Comment on above: Result Comment: Canc elled via OM: Order cancelled - Patient discharged Performed By: #### L 300.3900 #### [facility] [address] [place], [place], [id number] Whole blood prothrombin time Ordered By: Shayy Curtis on 09-08-2024 PT Coag (Bld) [Time] 23.8 s High 11.7-14.9 [facility] Anion gap in Serum or Plasma Ordered By: Shayy Curtis on 09-07-2024 Anion gap [Moles/Vol] 10 mmol/L 5-15 [facility] BUN/creatinine ratioOrdered By: Shayy Curtis on 09-07-2024 Urea nitrogen/Creatinine [Mass ratio] 14.0 mg/mg 10-20 [facility] Bilirubin, totalOrdered By: Shayy Curtis on 09-07-2024 Bilirubin [Mass/Vol] 1.02 mg/dL 0.00-1.30 [facility] Calculated very low density lipoprotein (VLDL) cholesterol measurementOrdered By: Shayy Curtis on 09-07-2024 Calculated very low density lipoprotein (VLDL) cholesterol measurement 13 mg/dL 5-40 [facility] Carbon dioxide, total [Moles /volume] in Central venous bloodOrdered By: Shayy Curtis on 09-07-2024 CO2 [Moles/Vol] 25.4 mmol/L 21.0-32.0 [facility] Chloride assayOrdered By: Hung Curtis on 09-07-2024 Chloride [Moles/Vol] 104 mmol/L 98-108 [facility] Culture, Blood (WB)on 2024 CUB No growth in 5 days. Normal [facility] Comment on above: Performed By: #### M 200.1000, L509.7001, L101.9900, L501.6710 #### [facility] [address] [place], [address] Glomerular filtration rate ( GFR) estimation/1.73 sq m using serum, plasma, or whole bOrdered By: Shayy Curtis on 09-07-2024 GFR/1.73 sq M.predicted among non-blacks MDRD (S/P/Bld) [Vol rate/Area] 88 mL/min/{1.73_m2} >60 [facility] Comment on above: mL/min/1.73m2 CKD-EP I Creatinine Equation (2020) LDL calc ser/plasOrdered By: Shayy Curtis on 09-07-2024 Cholesterol in LDL [Mass/Vol] 64 mg/dL [facility] Comment on above: Nnwovmrigl=895-976 m g/dL & Higher Zdfp=620 mg/dL or greater Laboratory - Chemistry and C hemistry - challengeOrdered By: Shayy Curtis on 09-07-2024 AST [Catalytic activity/Vol] 33 U/L <38 [facility] Potassium measurement (mass/ volume)Ordered By: Shayy Curtis on 09-07-2024 Potassium (Unsp spec) [Mass/Vol] 3.8 mmol/L 3.3-5.1 [facility] Prothrombin Time w/INRon INR Normal [facility] Comment on above: Result Comment: Canc elled via OM: Order cancelled - Patient discharged Performed By: #### L 300.3900 #### [facility] [address] [place], [place], [id number] PROTIME Normal 11.7-14.9 [facility] Comment on above: Result Comment: Canc elled via OM: Order cancelled - Patient discharged Performed By: #### L 300.3900 #### [facility] [address] [place], [place], [id number] Screening total cholesterol/ high density lipoprotein (HDL) cholesterol ratioOrdered By: Shayy Curtis on 09-07-2024 Cholesterol.total/Cho lesterol in HDL [Mass ratio] 3.75 {ratio} [facility] Serum creatinine measurement (mass/volume)Ordered By: Shayy Curtis on 09-07-2024 Creatinine [Mass/Vol] 0.70 mg/dL 0.70-1.20 [facility] Serum globulin measurementOr dered By: Shayy Curtis on 09-07-2024 Globulin (S) [Mass/Vol] 2.5 g/dL 2.2-4.2 [facility] Serum glucose measurement (m ass/volume)Ordered By: Shayy Curtis on 09-07-2024 Glucose [Mass/Vol] 107 mg/dL High 70-99 [facility] Serum or plasma alanine franks otransferase (ALT) measurementOrdered By: Shayy Curtis on 09-07-2024 ALT [Catalytic activity/Vol] 23 U/L <47 [facility] Serum or plasma albumin alvaro urement (mass/volume)Ordered By: Shayy Curtis on 09-07-2024 Albumin [Mass/Vol] 3.7 g/dL 3.4-4.8 [facility] Serum or plasma albumin/glob ulin mass ratioOrdered By: Shayy Curtis on 09-07-2024 Albumin/Globulin [Mass ratio] 1.5 {ratio} 0.9-2.4 [facility] Serum or plasma alkaline carole sphatase measurementOrdered By: Shayy Curtis 09-07-2024 ALP [Catalytic activity/Vol] 123 U/L 40-129 [facility] Serum or plasma calcium alvaro urement (mass/volume)Ordered By: Shayy Curtis on 09-07-2024 Calcium [Mass/Vol] 8.7 mg/dL 7.6-11.0 [facility] Serum or plasma cholesterol in HDL measurement (mass/volume)Ordered By: Shayy Curtis 09-07-2024 Cholesterol in HDL [Mass/Vol] 28 mg/dL Low >40 [facility] Comment on above: National Cholesterol Education Program (NCEP) guidelines:<40 mg/dL: Low HDL-cholesterol (major risk factor for CHD)>= 60 mg/dL: High HDL-cholesterol (negative risk factor for CHD)HDL-cholesterol is affected by a number of factors, e.g. smoking, exercise, hormones, sex and age. Serum or plasma cholesterol measurement (mass/volume)Ordered By: Shayy Curtis 09-07-2024 Cholesterol [Mass/Vol] 105 mg/dL <201 [facility] Comment on above: Cholesterol level, D esirable <200 mg/dLBorderline high cholesterol 200-239 mg/dLHigh cholesterol >=240 mg/dLRecommendations of the NCEP Adult Treatment Panel for the following risk-cutoff thresholds for the [place] population. Serum or plasma urea nitroge n measurement (mass/volume)Ordered By: Shayy Curtis 09-07-2024 Urea nitrogen [Mass/Vol] 10 mg/dL 4-19 [facility] Sodium levelOrdered By: Latrice Curtis 09-07-2024 Sodium [Moles/Vol] 139 mmol/L 133-145 [facility] TSH DL <= 0.005 mIU/L QnOrde red By: Shayy Curtis 09-07-2024 TSH Qn 0.300 uIU/mL 0.300-4.20 0 [facility] Total proteinOrdered By: Yazan Curtis on 09-07-2024 Protein [Mass/Vol] 6.2 g/dL 5.9-8.4 [facility] Triglycerides measurementOrd ered By: Shayy Curtis on 09-07-2024 Triglyceride [Mass/Vol] 63 mg/dL <199 [facility] Comment on above: The drugs N-Acetylcy steine and Metamizole may falsely depress this assay. Normal range: <150 mg/dLBorderline High: 150-199 mg/dLHigh: 200-499 mg/dLVery High: >500 mg/dL Vitamin B12 ser/plasOrdered By: Shayy Curtis on 09-07-2024 Cobalamin (Vitamin B12) [Mass/Vol] 519 pg/mL 180-914 [facility] Absolute lymphocyte countOrd ered By: Navid Dominguez on 09-06-2024 Lymphocytes Auto (Unsp spec) [#/Vol] 1.28 10*3/uL 0.83-4.51 [facility] Absolute neutrophil countOrd ered By: Navid Dominguez on 09-06-2024 Neutrophils (Bld) [#/Vol] 5.2 10*3/uL 2.0-7.7 [facility] Anion gap in Serum or Plasma Ordered By: Navid Dominguez on 09-06-2024 Anion gap [Moles/Vol] 10 mmol/L 5-15 [facility] Automated blood erythrocyte countOrdered By: Navid Dominguez on 09-06-2024 RBC (Bld) [#/Vol] 4.39 10*6/uL Low 4.6-6.2 [facility] Comment on above: Performed By: #### L 100.0100, L500.2500, L300.3900 #### [facility] [address] [place], [address] Automated blood hematocrit ( percentage)Ordered By: Navid Dominguez on 09-06-2024 Hematocrit (Bld) [Volume fraction] 33.6 % Low 40-54 [facility] Comment on above: Performed By: #### L 100.0100, L500.2500, L300.3900 #### [facility] [address] [place], [address] Automated lymphocyte count a s percentage of total leukocytesOrdered By: Navid Dominguez on 09-06-2024 Lymphocytes/100 WBC Auto (Unsp spec) 16.4 % Low 19-41 [facility] BUN/creatinine ratioOrdered By: Navid Dominguez on 09-06-2024 Urea nitrogen/Creatinine [Mass ratio] 14.4 mg/mg 10-20 [facility] Basic Metabolic Profile (BMP )on 09-06-2024 BUN/CRE 14.4 RATIO Normal 10-20 [facility] Comment on above: Performed By: #### M 200.1000, L509.7001, L101.9900, L501.6710 #### [facility] [address] [place], [address] ECRCL 64.10 ml/min Normal 50-250 [facility] Comment on above: Performed By: #### M 200.1000, L509.7001, L101.9900, L501.6710 #### [facility] [address] [place], [address] GAP 10 Normal 5-15 [facility] Comment on above: Performed By: #### M 200.1000, L509.7001, L101.9900, L501.6710 #### [facility] [address] [place], [address] Potassium [Moles/Vol] 3.5 mmol/L Normal 3.3-5.1 [facility] Comment on above: Performed By: #### M 200.1000, L509.7001, L101.9900, L501.6710 #### [facility] [address] [place], [address] Basophil percentageOrdered B y: Navid Dominguez on 09-06-2024 Basophils/100 WBC (Bld) 1.0 % Normal 0-1 [facility] Comment on above: Performed By: #### L 100.0100, L500.2500, L300.3900 #### [facility] [address] [place], [address] CBC W/Diff, Automatedon 08-21-2024 Absolute Lymph 1.28 X10 3/uL Normal 0.83-4.51 [facility] Comment on above: Performed By: #### L 100.0100, L500.2500, L300.3900 #### [facility] [address] [place], [address] Absolute Neut 5.2 X10 3/uL Normal 2.0-7.7 [facility] Comment on above: Performed By: #### L 100.0100, L500.2500, L300.3900 #### [facility] [address] [place], [address] IG% 0.400 Normal 0.0-0.9 [facility] Comment on above: Result Comment: IG% - Immature Granulocytes (promyelocytes, myelocytes and metamyelocytes) > 1% indicates that a LEFT SHIFT is Present. Performed By: #### L 100.0100, L500.2500, L300.3900 #### [facility] [address] [place], [address] Lymphocytes/100 WBC (Bld) 16.4 % Low 19-41 [facility] Comment on above: Performed By: #### L 100.0100, L500.2500, L300.3900 #### [facility] [address] [place], [address] Nucleated RBC (Bld) [#/Vol] 0 10*3/uL Normal 0-5 [facility] Comment on above: Performed By: #### L 100.0100, L500.2500, L300.3900 #### [facility] [address] [place], [address] RDW SD 48.2 fl High 35.1-43.9 [facility] Comment on above: Performed By: #### L 100.0100, L500.2500, L300.3900 #### [facility] [address] [place], [address] Carbon dioxide, total [Moles /volume] in Central venous bloodOrdered By: Navid Dominguez on 09-06-2024 CO2 [Moles/Vol] 24.9 mmol/L Normal 21.0-32.0 [facility] Comment on above: Performed By: #### M 200.1000, L509.7001, L101.9900, L501.6710 #### [facility] [address] [place], [address] Chloride assayOrdered By: Cameron Dominguez on 09-06-2024 Chloride [Moles/Vol] 106 mmol/L Normal 98-108 [facility] Comment on above: Performed By: #### M 200.1000, L509.7001, L101.9900, L501.6710 #### [facility] [address] [place], [address] Eosinophil percentageOrdered By: Navid Dominguez on 09-06-2024 Eosinophils/100 WBC (Bld) 6.3 % High 0-5 [facility] Comment on above: Performed By: #### L 100.0100, L500.2500, L300.3900 #### [facility] [address] [place], [address] Erythrocyte distribution wid th ratioOrdered By: Navid Dominguez on 09-06-2024 Erythrocyte distribution width (RBC) [Ratio] 17.4 % High 11.6-14.6 [facility] Comment on above: Performed By: #### L 100.0100, L500.2500, L300.3900 #### [facility] [address] [place], [address] Erythrocyte distribution wid th standard deviationOrdered By: Navid Dominguez on 09-06-2024 Erythrocyte distribution width (RBC) [Ratio] 48.2 fl High 35.1-43.9 [facility] Glomerular filtration rate ( GFR) estimation/1.73 sq m using serum, plasma, or whole bOrdered By: Navid Dominguez on 09-06-2024 GFR/1.73 sq M.predicted among non-blacks MDRD (S/P/Bld) [Vol rate/Area] 87 mL/min/{1.73_m2} Normal >60 [facility] Comment on above: mL/min/1.73m2 CKD-EP I Creatinine Equation (2020) Result Comment: mL/m in/1.73m2 CKD-EPI Creatinine Equation (2020) Performed By: #### M 200.1000, L509.7001, L101.9900, L501.6710 #### [facility] [address] [place], [place], [id number] Hemoglobin measurementOrdere d By: Navid Dominguez on 09-06-2024 Hemoglobin (Bld) [Mass/Vol] 10.8 g/dL Low 13.0-16.5 [facility] Comment on above: Performed By: #### L 100.0100, L500.2500, L300.3900 #### [facility] [address] [place], [place], [address] Immature granulocytes/100 WB C Auto (Bld)Ordered By: Navid Dominguez on 09-06-2024 Immature granulocytes/100 WBC (Bld) 0.400 % 0.0-0.9 [facility] Comment on above: IG% - Immature Granu locytes (promyelocytes, myelocytes and metamyelocytes) > 1% indicates that a LEFT SHIFT is Present. International normalized rat io (INR) calculationOrdered By: Navid Dominguez on 09-06-2024 INR Coag (Bld) [Relative time] 2.4 {INR} [facility] MCV (mean corpuscular volume ) determinationOrdered By: Navid Dominguez on 09-06-2024 MCV (RBC) [Entitic vol] 76.5 fL Low 80-94 [facility] Comment on above: Performed By: #### L 100.0100, L500.2500, L300.3900 #### [facility] [address] [place], [address] Mean corpuscular hemoglobin (MCH) determinationOrdered By: Navid Dominguez on 09-06-2024 MCH (RBC) [Entitic mass] 24.6 pg Low 27.0-32.0 [facility] Comment on above: Performed By: #### L 100.0100, L500.2500, L300.3900 #### [facility] [address] [place], [address] Mean corpuscular hemoglobin concentration (MCHC) determinationOrdered By: Navid Dominguez on 09-06-2024 MCHC (RBC) [Mass/Vol] 32.1 g/dL Normal 32-36 [facility] Comment on above: Performed By: #### L 100.0100, L500.2500, L300.3900 #### [facility] [address] [place], [address] Mean platelet volume determi nationOrdered By: Navid Dominguez on 09-06-2024 Platelet mean volume (Bld) [Entitic vol] 9.4 fL Normal 6.2-12.0 [facility] Comment on above: Performed By: #### L 100.0100, L500.2500, L300.3900 #### [facility] [address] [place], [address] Monocyte percentageOrdered B y: Navid Dominguez on 09-06-2024 Monocytes/100 WBC (Bld) 9.1 % Normal 0-10 [facility] Comment on above: Performed By: #### L 100.0100, L500.2500, L300.3900 #### [facility] [address] [place], [address] Neutrophil percentageOrdered By: Navid Dominguez on 09-06-2024 Neutrophils/100 WBC (Bld) 66.8 % Normal 47-70 [facility] Comment on above: Performed By: #### L 100.0100, L500.2500, L300.3900 #### [facility] [address] [place], [address] Nucleated red blood cell per centageOrdered By: Navid Dominguez on 09-06-2024 Nucleated RBC/100 WBC (Bld) [Ratio] 0 % 0-5 [facility] Platelet countOrdered By: Cameron Dominguez on 09-06-2024 Platelets (Bld) [#/Vol] 325 10*3/uL Normal 150-450 [facility] Comment on above: Performed By: #### L 100.0100, L500.2500, L300.3900 #### [facility] [address] [place], [address] Potassium measurement (mass/ volume)Ordered By: Navid Dominguez on 09-06-2024 Potassium (Unsp spec) [Mass/Vol] 3.5 mmol/L 3.3-5.1 [facility] Prothrombin Time w/INRon INR Coag (PPP) [Relative time] 2.4 {INR} Normal [facility] Comment on above: Performed By: #### M 200.1000, L509.7001, L101.9900, L501.6710 #### [facility] [address] [place], [address] Prothrombin timeOrdered By: Navid Dominguez on 09-06-2024 PT Coag (PPP) [Time] 27.0 s High 11.7-14.9 [facility] Comment on above: Performed By: #### M 200.1000, L509.7001, L101.9900, L501.6710 #### [facility] [address] [place], [address] Serum creatinine measurement (mass/volume)Ordered By: Navid Dominguez on 09-06-2024 Creatinine [Mass/Vol] 0.73 mg/dL Normal 0.70-1.20 [facility] Comment on above: Performed By: #### M 200.1000, L509.7001, L101.9900, L501.6710 #### [facility] [address] [place], [address] Serum glucose measurement (m ass/volume)Ordered By: Navid Dominguez on 09-06-2024 Glucose [Mass/Vol] 109 mg/dL High 70-99 [facility] Comment on above: Performed By: #### M 200.1000, L509.7001, L101.9900, L501.6710 #### [facility] [address] [place], [address] Serum or plasma calcium alvaro urement (mass/volume)Ordered By: Navid Dominguez on 09-06-2024 Calcium [Mass/Vol] 8.7 mg/dL Normal 7.6-11.0 [facility] Comment on above: Performed By: #### M 200.1000, L509.7001, L101.9900, L501.6710 #### [facility] [address] [place], [address] Serum or plasma urea nitroge n measurement (mass/volume)Ordered By: Navid Dominguez on 09-06-2024 Urea nitrogen [Mass/Vol] 11 mg/dL Normal 4-19 [facility] Comment on above: Performed By: #### M 200.1000, L509.7001, L101.9900, L501.6710 #### [facility] [address] [place], [address] Sodium levelOrdered By: Kamilah Dominguez on 09-06-2024 Sodium [Moles/Vol] 141 mmol/L Normal 133-145 [facility] Comment on above: Performed By: #### M 200.1000, L509.7001, L101.9900, L501.6710 #### [facility] [address] [place], [address] White blood cell (WBC) count Ordered By: Navid Dominguez on 09-06-2024 WBC (Bld) [#/Vol] 7.8 10*3/uL Normal 4.4-11.0 [facility] Comment on above: Performed By: #### L 100.0100, L500.2500, L300.3900 #### [facility] [address] [place], [address] Basic Metabolic Profile (BMP )on 09-05-2024 BUN/CRE 13.4 RATIO Normal 10-20 [facility] Comment on above: Performed By: #### M 200.1000, L509.7001, L101.9900, L501.6710 #### [facility] [address] [place], [address] Calcium [Mass/Vol] 8.6 mg/dL Normal 7.6-11.0 [facility] Comment on above: Performed By: #### M 200.1000, L509.7001, L101.9900, L501.6710 #### [facility] [address] [place], [address] Chloride [Moles/Vol] 105 mmol/L Normal 98-108 [facility] Comment on above: Performed By: #### M 200.1000, L509.7001, L101.9900, L501.6710 #### [facility] [address] [place], [address] CO2 [Moles/Vol] 21.9 mmol/L Normal 21.0-32.0 [facility] Comment on above: Performed By: #### M 200.1000, L509.7001, L101.9900, L501.6710 #### [facility] [address] [place], [address] Creatinine [Mass/Vol] 0.62 mg/dL Low 0.70-1.20 [facility] Comment on above: Performed By: #### M 200.1000, L509.7001, L101.9900, L501.6710 #### [facility] [address] [place], [address] ECRCL 64.10 ml/min Normal 50-250 [facility] Comment on above: Performed By: #### M 200.1000, L509.7001, L101.9900, L501.6710 #### [facility] [address] [place], [address] GAP 12 Normal 5-15 [facility] Comment on above: Performed By: #### M 200.1000, L509.7001, L101.9900, L501.6710 #### [facility] [address] [place], [address] GFR/1.73 sq M.predicted among non-blacks MDRD (S/P/Bld) [Vol rate/Area] 91 mL/min/{1.73_m2} Normal >60 [facility] Comment on above: Result Comment: mL/m in/1.73m2 CKD-EPI Creatinine Equation (2020) Performed By: #### M 200.1000, L509.7001, L101.9900, L501.6710 #### [facility] [address] [place], [address] Glucose [Mass/Vol] 119 mg/dL High 70-99 [facility] Comment on above: Performed By: #### M 200.1000, L509.7001, L101.9900, L501.6710 #### [facility] [address] [place], [address] Potassium [Moles/Vol] 3.3 mmol/L Normal 3.3-5.1 [facility] Comment on above: Performed By: #### M 200.1000, L509.7001, L101.9900, L501.6710 #### [facility] [address] [place], [address] Sodium [Moles/Vol] 139 mmol/L Normal 133-145 [facility] Comment on above: Performed By: #### M 200.1000, L509.7001, L101.9900, L501.6710 #### [facility] [address] [place], [address] Urea nitrogen [Mass/Vol] 8 mg/dL Normal 4-19 [facility] Comment on above: Performed By: #### M 200.1000, L509.7001, L101.9900, L501.6710 #### [facility] [address] [place], [address] Bilirubin Test strip Ql (U)O rdered By: Marta Black on 09-05-2024 Bilirubin Ql (U) Negative Negative [facility] CBC W/Diff, Automatedon 08-21 Absolute Lymph 0.96 X10 3/uL Normal 0.83-4.51 [facility] Comment on above: Performed By: #### M 200.1000, L509.7001, L101.9900, L501.6710 #### [facility] [address] [place], [address] Absolute Neut 7.6 X10 3/uL Normal 2.0-7.7 [facility] Comment on above: Performed By: #### M 200.1000, L509.7001, L101.9900, L501.6710 #### [facility] [address] [place], [address] Basophils/100 WBC (Bld) 0.7 % Normal 0-1 [facility] Comment on above: Performed By: #### M 200.1000, L509.7001, L101.9900, L501.6710 #### [facility] [address] [place], [address] Eosinophils/100 WBC (Bld) 4.0 % Normal 0-5 [facility] Comment on above: Performed By: #### M 200.1000, L509.7001, L101.9900, L501.6710 #### [facility] [address] [place], [address] Erythrocyte distribution width (RBC) [Ratio] 17.6 % High 11.6-14.6 [facility] Comment on above: Performed By: #### M 200.1000, L509.7001, L101.9900, L501.6710 #### [facility] [address] [place], [address] Hematocrit (Bld) [Volume fraction] 35.3 % Low 40-54 [facility] Comment on above: Performed By: #### M 200.1000, L509.7001, L101.9900, L501.6710 #### [facility] [address] [place], [address] Hemoglobin (Bld) [Mass/Vol] 11.3 g/dL Low 13.0-16.5 [facility] Comment on above: Performed By: #### M 200.1000, L509.7001, L101.9900, L501.6710 #### [facility] [address] [place], [address] IG% 0.400 Normal 0.0-0.9 [facility] Comment on above: Result Comment: IG% - Immature Granulocytes (promyelocytes, myelocytes and metamyelocytes) > 1% indicates that a LEFT SHIFT is Present. Performed By: #### M 200.1000, L509.7001, L101.9900, L501.6710 #### [facility] [address] [place], [address] Lymphocytes/100 WBC (Bld) 9.8 % Low 19-41 [facility] Comment on above: Performed By: #### M 200.1000, L509.7001, L101.9900, L501.6710 #### [facility] [address] [place], [address] MCH (RBC) [Entitic mass] 24.4 pg Low 27.0-32.0 [facility] Comment on above: Performed By: #### M 200.1000, L509.7001, L101.9900, L501.6710 #### [facility] [address] [place], [address] MCHC (RBC) [Mass/Vol] 32.0 g/dL Normal 32-36 [facility] Comment on above: Performed By: #### M 200.1000, L509.7001, L101.9900, L501.6710 #### [facility] [address] [place], [address] MCV (RBC) [Entitic vol] 76.2 fL Low 80-94 [facility] Comment on above: Performed By: #### M 200.1000, L509.7001, L101.9900, L501.6710 #### [facility] [address] [place], [address] Monocytes/100 WBC (Bld) 7.9 % Normal 0-10 [facility] Comment on above: Performed By: #### M 200.1000, L509.7001, L101.9900, L501.6710 #### [facility] [address] [place], [address] Neutrophils/100 WBC (Bld) 77.2 % High 47-70 [facility] Comment on above: Performed By: #### M 200.1000, L509.7001, L101.9900, L501.6710 #### [facility] [address] [place], [address] Nucleated RBC (Bld) [#/Vol] 0 10*3/uL Normal 0-5 [facility] Comment on above: Performed By: #### M 200.1000, L509.7001, L101.9900, L501.6710 #### [facility] [address] [place], [address] Platelet mean volume (Bld) [Entitic vol] 9.3 fL Normal 6.2-12.0 [facility] Comment on above: Performed By: #### M 200.1000, L509.7001, L101.9900, L501.6710 #### [facility] [address] [place], [address] Platelets (Bld) [#/Vol] 329 10*3/uL Normal 150-450 [facility] Comment on above: Performed By: #### M 200.1000, L509.7001, L101.9900, L501.6710 #### [facility] [address] [place], [address] RBC (Bld) [#/Vol] 4.63 10*6/uL Normal 4.6-6.2 [facility] Comment on above: Performed By: #### M 200.1000, L509.7001, L101.9900, L501.6710 #### [facility] [address] [place], [address] RDW SD 47.9 fl High 35.1-43.9 [facility] Comment on above: Performed By: #### M 200.1000, L509.7001, L101.9900, L501.6710 #### [facility] [address] [place], [address] WBC (Bld) [#/Vol] 9.8 10*3/uL Normal 4.4-11.0 [facility] Comment on above: Performed By: #### M 200.1000, L509.7001, L101.9900, L501.6710 #### [facility] [address] [place], [place], [address] Ketones Test strip Ql (U)Ord ered By: Marta Black on 09-05-2024 Ketones Ql (U) Negative Negative [facility] Microscopic analysis of urin e for red blood cells (RBC)Ordered By: Marta Black on 09-05-2024 Microscopic analysis of urine for red blood cells (RBC) 0-5 SEEN /hpf 0-5 [facility] Mucus LM Ql (Urine sed)Order ed By: Marta Black on 09-05-2024 Mucus Ql (Urine sed) 0 SEEN /hpf [facility] Nitrite Test strip Ql (U)Ord ered By: Marta Black on 09-05-2024 Nitrite Ql (U) Negative Negative [facility] Protein Test strip Ql (U)Ord ered By: Marta Black on 09-05-2024 Protein Ql (U) 15 mg/dl High Negative [facility] Prothrombin Time w/INRon INR Coag (PPP) [Relative time] 2.2 {INR} Normal [facility] Comment on above: Performed By: #### M 200.1000, L509.7001, L101.9900, L501.6710 #### [facility] [address] [place], [address] PT Coag (PPP) [Time] 24.7 s High 11.7-14.9 [facility] Comment on above: Performed By: #### M 200.1000, L509.7001, L101.9900, L501.6710 #### [facility] [address] [place], [address] Squamous epithelial cells de tection in urine sediment by light microscopyOrdered By: Marta Black on 09-05-2024 Epithelial cells.squamous LM Ql (Urine sed) 0 SEEN /hpf 0-5 [facility] Urinalysis, Completeon 09-05 BACTERIA RARE Normal None Seen [facility] Comment on above: Order Comment: CLEAN CATCH Performed By: #### M 200.1000, L509.7001, L101.9900, L501.6710 #### [facility] [address] [place], [address] RBC 0-5 SEEN Normal 0-5 [facility] Comment on above: Order Comment: CLEAN CATCH Performed By: #### M 200.1000, L509.7001, L101.9900, L501.6710 #### [facility] [address] [place], [address] WBC 0-5 SEEN Normal 0-5 [facility] Comment on above: Order Comment: CLEAN CATCH Performed By: #### M 200.1000, L509.7001, L101.9900, L501.6710 #### [facility] [address] [place], [address] BILIRUBIN URINE Negative Normal Negative [facility] Comment on above: Order Comment: CLEAN CATCH Performed By: #### M 200.1000, L509.7001, L101.9900, L501.6710 #### [facility] [address] [place], [address] Clarity (U) Clear Normal Clear [facility] Comment on above: Order Comment: CLEAN CATCH Performed By: #### M 200.1000, L509.7001, L101.9900, L501.6710 #### [facility] [address] [place], [address] Color (U) Straw Normal Yellow [facility] Comment on above: Order Comment: CLEAN CATCH Performed By: #### M 200.1000, L509.7001, L101.9900, L501.6710 #### [facility] [address] [place], [address] GLUCOSE, UR Normal Normal Normal [facility] Comment on above: Order Comment: CLEAN CATCH Performed By: #### M 200.1000, L509.7001, L101.9900, L501.6710 #### [facility] [address] [place], [address] KETONE UR Negative Normal Negative [facility] Comment on above: Order Comment: CLEAN CATCH Performed By: #### M 200.1000, L509.7001, L101.9900, L501.6710 #### [facility] [address] [place], [address] LEUK ESTERASE Negative Normal Negative [facility] Comment on above: Order Comment: CLEAN CATCH Performed By: #### M 200.1000, L509.7001, L101.9900, L501.6710 #### [facility] [address] [place], [address] Nitrite Ql (U) Negative Normal Negative [facility] Comment on above: Order Comment: CLEAN CATCH Performed By: #### M 200.1000, L509.7001, L101.9900, L501.6710 #### [facility] [address] [place], [address] OCCULT BLOOD-UR 25 /ul Abnormal Negative [facility] Comment on above: Order Comment: CLEAN CATCH Performed By: #### M 200.1000, L509.7001, L101.9900, L501.6710 #### [facility] [address] [place], [address] pH UR 7.0 Normal 5.0 - 8.0 [facility] Comment on above: Order Comment: CLEAN CATCH Performed By: #### M 200.1000, L509.7001, L101.9900, L501.6710 #### [facility] [address] [place], [address] PROT DIPSTX 15 mg/dl Abnormal Negative [facility] Comment on above: Order Comment: CLEAN CATCH Performed By: #### M 200.1000, L509.7001, L101.9900, L501.6710 #### [facility] [address] [place], [address] SP.GR. DIPSTX 1.005 Normal 1.002-1.03 0 [facility] Comment on above: Order Comment: CLEAN CATCH Performed By: #### M 200.1000, L509.7001, L101.9900, L501.6710 #### [facility] [address] [place], [address] UROBILI Normal Normal Normal [facility] Comment on above: Order Comment: CLEAN CATCH Performed By: #### M 200.1000, L509.7001, L101.9900, L501.6710 #### [facility] [address] [place], [address] EPI,SQUAMOUS 0 SEEN Normal 0-5 [facility] Comment on above: Order Comment: CLEAN CATCH Performed By: #### M 200.1000, L509.7001, L101.9900, L501.6710 #### [facility] [address] [place], [address] Mucus Ql (Urine sed) 0 SEEN Normal [facility] Comment on above: Order Comment: CLEAN CATCH Performed By: #### M 200.1000, L509.7001, L101.9900, L501.6710 #### [facility] [address] [place], [address] Urine clarityOrdered By: Magnolia Black on 09-05-2024 Clarity (U) Clear Clear [facility] Urine color determinationOrd ered By: Marta Black on 09-05-2024 Color (U) Straw Yellow [facility] Urine glucose detectionOrder ed By: Marta Black on 09-05-2024 Glucose Ql (U) Normal mg/dl Normal [facility] Urine leukocyte esterase det ection by dipstickOrdered By: Marta Black on 09-05-2024 Leukocyte esterase Test strip Ql (U) Negative Negative [facility] Urine pHOrdered By: Marta Black on 09-05-2024 pH (U) 7.0 [pH] 5.0 - 8.0 [facility] Urine sediment bacteria coun t by microscopy (number/high power field)Ordered By: Marta Black on 09-05-2024 Bacteria LM.HPF (Urine sed) [#/Area] RARE /hpf None Seen [facility] Urine specific gravity measu rementOrdered By: Marta Black on 09-05-2024 Specific gravity (U) [Rel density] 1.005 1.002-1.03 0 [facility] Urine urobilinogen measureme ntOrdered By: Marta Black on 09-05-2024 Urobilinogen Ql (U) Normal mg/dl Normal [facility] White blood cell countOrdere d By: Marta Black on 09-05-2024 White blood cell count 0-5 SEEN /hpf 0-5 [facility] Basic Metabolic Profile (BMP )on 09-04-2024 BUN/CRE 17.3 RATIO Normal 10-20 [facility] Comment on above: Performed By: #### M 200.1000, L509.7001, L101.9900, L501.6710 #### [facility] [address] [place], [address] Calcium [Mass/Vol] 8.2 mg/dL Normal 7.6-11.0 [facility] Comment on above: Performed By: #### M 200.1000, L509.7001, L101.9900, L501.6710 #### [facility] [address] [place], [address] Chloride [Moles/Vol] 107 mmol/L Normal 98-108 [facility] Comment on above: Performed By: #### M 200.1000, L509.7001, L101.9900, L501.6710 #### [facility] [address] [place], [address] CO2 [Moles/Vol] 20.9 mmol/L Low 21.0-32.0 [facility] Comment on above: Performed By: #### M 200.1000, L509.7001, L101.9900, L501.6710 #### [facility] [address] [place], [address] Creatinine [Mass/Vol] 0.72 mg/dL Normal 0.70-1.20 [facility] Comment on above: Performed By: #### M 200.1000, L509.7001, L101.9900, L501.6710 #### [facility] [address] [place], [address] ECRCL 64.10 ml/min Normal 50-250 [facility] Comment on above: Performed By: #### M 200.1000, L509.7001, L101.9900, L501.6710 #### [facility] [address] [place], [address] GAP 11 Normal 5-15 [facility] Comment on above: Performed By: #### M 200.1000, L509.7001, L101.9900, L501.6710 #### [facility] [address] [place], [address] GFR/1.73 sq M.predicted among non-blacks MDRD (S/P/Bld) [Vol rate/Area] 87 mL/min/{1.73_m2} Normal >60 [facility] Comment on above: Result Comment: mL/m in/1.73m2 CKD-EPI Creatinine Equation (2020) Performed By: #### M 200.1000, L509.7001, L101.9900, L501.6710 #### [facility] [address] [place], [address] Glucose [Mass/Vol] 120 mg/dL High 70-99 [facility] Comment on above: Performed By: #### M 200.1000, L509.7001, L101.9900, L501.6710 #### [facility] [address] [place], [address] Potassium [Moles/Vol] 3.5 mmol/L Normal 3.3-5.1 [facility] Comment on above: Performed By: #### M 200.1000, L509.7001, L101.9900, L501.6710 #### [facility] [address] [place], [address] Sodium [Moles/Vol] 139 mmol/L Normal 133-145 [facility] Comment on above: Performed By: #### M 200.1000, L509.7001, L101.9900, L501.6710 #### [facility] [address] [place], [address] Urea nitrogen [Mass/Vol] 12 mg/dL Normal 4-19 [facility] Comment on above: Performed By: #### M 200.1000, L509.7001, L101.9900, L501.6710 #### [facility] [address] [place], [address] CBC W/Diff, Automatedon 08-21-2024 Absolute Lymph 0.89 X10 3/uL Normal 0.83-4.51 [facility] Comment on above: Performed By: #### M 200.1000, L509.7001, L101.9900, L501.6710 #### [facility] [address] [place], [address] Absolute Neut 8.9 X10 3/uL High 2.0-7.7 [facility] Comment on above: Performed By: #### M 200.1000, L509.7001, L101.9900, L501.6710 #### [facility] [address] [place], [address] Basophils/100 WBC (Bld) 0.8 % Normal 0-1 [facility] Comment on above: Performed By: #### M 200.1000, L509.7001, L101.9900, L501.6710 #### [facility] [address] [place], [address] Eosinophils/100 WBC (Bld) 5.3 % High 0-5 [facility] Comment on above: Performed By: #### M 200.1000, L509.7001, L101.9900, L501.6710 #### [facility] [address] [place], [address] Erythrocyte distribution width (RBC) [Ratio] 17.5 % High 11.6-14.6 [facility] Comment on above: Performed By: #### M 200.1000, L509.7001, L101.9900, L501.6710 #### [facility] [address] [place], [address] Hematocrit (Bld) [Volume fraction] 33.3 % Low 40-54 [facility] Comment on above: Performed By: #### M 200.1000, L509.7001, L101.9900, L501.6710 #### [facility] [address] [place], [address] Hemoglobin (Bld) [Mass/Vol] 10.7 g/dL Low 13.0-16.5 [facility] Comment on above: Performed By: #### M 200.1000, L509.7001, L101.9900, L501.6710 #### [facility] [address] [place], [address] IG% 0.400 Normal 0.0-0.9 [facility] Comment on above: Result Comment: IG% - Immature Granulocytes (promyelocytes, myelocytes and metamyelocytes) > 1% indicates that a LEFT SHIFT is Present. Performed By: #### M 200.1000, L509.7001, L101.9900, L501.6710 #### [facility] [address] [place], [address] Lymphocytes/100 WBC (Bld) 7.8 % Low 19-41 [facility] Comment on above: Performed By: #### M 200.1000, L509.7001, L101.9900, L501.6710 #### [facility] [address] [place], [address] MCH (RBC) [Entitic mass] 24.6 pg Low 27.0-32.0 [facility] Comment on above: Performed By: #### M 200.1000, L509.7001, L101.9900, L501.6710 #### [facility] [address] [place], [address] MCHC (RBC) [Mass/Vol] 32.1 g/dL Normal 32-36 [facility] Comment on above: Performed By: #### M 200.1000, L509.7001, L101.9900, L501.6710 #### [facility] [address] [place], [address] MCV (RBC) [Entitic vol] 76.6 fL Low 80-94 [facility] Comment on above: Performed By: #### M 200.1000, L509.7001, L101.9900, L501.6710 #### [facility] [address] [place], [address] Monocytes/100 WBC (Bld) 7.7 % Normal 0-10 [facility] Comment on above: Performed By: #### M 200.1000, L509.7001, L101.9900, L501.6710 #### [facility] [address] [place], [address] Neutrophils/100 WBC (Bld) 78.0 % High 47-70 [facility] Comment on above: Performed By: #### M 200.1000, L509.7001, L101.9900, L501.6710 #### [facility] [address] [place], [address] Nucleated RBC (Bld) [#/Vol] 0 10*3/uL Normal 0-5 [facility] Comment on above: Performed By: #### M 200.1000, L509.7001, L101.9900, L501.6710 #### [facility] [address] [place], [address] Platelet mean volume (Bld) [Entitic vol] 10.6 fL Normal 6.2-12.0 [facility] Comment on above: Performed By: #### M 200.1000, L509.7001, L101.9900, L501.6710 #### [facility] [address] [place], [address] Platelets (Bld) [#/Vol] 305 10*3/uL Normal 150-450 [facility] Comment on above: Performed By: #### M 200.1000, L509.7001, L101.9900, L501.6710 #### [facility] [address] [place], [address] RBC (Bld) [#/Vol] 4.35 10*6/uL Low 4.6-6.2 [facility] Comment on above: Performed By: #### M 200.1000, L509.7001, L101.9900, L501.6710 #### [facility] [address] [place], [address] RDW SD 48.3 fl High 35.1-43.9 [facility] Comment on above: Performed By: #### M 200.1000, L509.7001, L101.9900, L501.6710 #### [facility] [address] [place], [address] WBC (Bld) [#/Vol] 11.4 10*3/uL High 4.4-11.0 [facility] Comment on above: Performed By: #### M 200.1000, L509.7001, L101.9900, L501.6710 #### [facility] [address] [place], [address] Prothrombin Time w/INRon INR Coag (PPP) [Relative time] 1.9 {INR} Normal [facility] Comment on above: Performed By: #### L 300.3900 #### [facility] [address] [place], [address] PT Coag (PPP) [Time] 21.8 s High 11.7-14.9 [facility] Comment on above: Performed By: #### L 300.3900 #### [facility] [address] [place], [address] Basic Metabolic Profile (BMP )on 09-03-2024 BUN/CRE 13.3 RATIO Normal 10-20 [facility] Comment on above: Performed By: #### M 200.1000, L509.7001, L101.9900, L501.6710 #### [facility] [address] [place], [address] Calcium [Mass/Vol] 8.5 mg/dL Normal 7.6-11.0 [facility] Comment on above: Performed By: #### M 200.1000, L509.7001, L101.9900, L501.6710 #### [facility] [address] [place], [address] Chloride [Moles/Vol] 104 mmol/L Normal 98-108 [facility] Comment on above: Performed By: #### M 200.1000, L509.7001, L101.9900, L501.6710 #### [facility] [address] [place], [address] CO2 [Moles/Vol] 19.1 mmol/L Low 21.0-32.0 [facility] Comment on above: Performed By: #### M 200.1000, L509.7001, L101.9900, L501.6710 #### [facility] [address] [place], [address] Creatinine [Mass/Vol] 0.74 mg/dL Normal 0.70-1.20 [facility] Comment on above: Performed By: #### M 200.1000, L509.7001, L101.9900, L501.6710 #### [facility] [address] [place], [address] ECRCL 64.10 ml/min Normal 50-250 [facility] Comment on above: Performed By: #### M 200.1000, L509.7001, L101.9900, L501.6710 #### [facility] [address] [place], [address] GAP 13 Normal 5-15 [facility] Comment on above: Performed By: #### M 200.1000, L509.7001, L101.9900, L501.6710 #### [facility] [address] [place], [address] GFR/1.73 sq M.predicted among non-blacks MDRD (S/P/Bld) [Vol rate/Area] 87 mL/min/{1.73_m2} Normal >60 [facility] Comment on above: Result Comment: mL/m in/1.73m2 CKD-EPI Creatinine Equation (2020) Performed By: #### M 200.1000, L509.7001, L101.9900, L501.6710 #### [facility] [address] [place], [address] Glucose [Mass/Vol] 111 mg/dL High 70-99 [facility] Comment on above: Performed By: #### M 200.1000, L509.7001, L101.9900, L501.6710 #### [facility] [address] [place], [address] Potassium [Moles/Vol] 3.5 mmol/L Normal 3.3-5.1 [facility] Comment on above: Performed By: #### M 200.1000, L509.7001, L101.9900, L501.6710 #### [facility] [address] [place], [address] Sodium [Moles/Vol] 137 mmol/L Normal 133-145 [facility] Comment on above: Performed By: #### M 200.1000, L509.7001, L101.9900, L501.6710 #### [facility] [address] [place], [address] Urea nitrogen [Mass/Vol] 10 mg/dL Normal 4-19 [facility] Comment on above: Performed By: #### M 200.1000, L509.7001, L101.9900, L501.6710 #### [facility] [address] [place], [address] CBC W/Diff, Automatedon 06-1 -2024 Absolute Lymph 0.82 X10 3/uL Low 0.83-4.51 [facility] Comment on above: Performed By: #### M 200.1000, L509.7001, L101.9900, L501.6710 #### [facility] [address] [place], [address] Absolute Neut 10.2 X10 3/uL High 2.0-7.7 [facility] Comment on above: Performed By: #### M 200.1000, L509.7001, L101.9900, L501.6710 #### [facility] [address] [place], [address] Basophils/100 WBC (Bld) 0.7 % Normal 0-1 [facility] Comment on above: Performed By: #### M 200.1000, L509.7001, L101.9900, L501.6710 #### [facility] [address] [place], [address] Eosinophils/100 WBC (Bld) 2.8 % Normal 0-5 [facility] Comment on above: Performed By: #### M 200.1000, L509.7001, L101.9900, L501.6710 #### [facility] [address] [place], [address] Erythrocyte distribution width (RBC) [Ratio] 17.5 % High 11.6-14.6 [facility] Comment on above: Performed By: #### M 200.1000, L509.7001, L101.9900, L501.6710 #### [facility] [address] [place], [address] Hematocrit (Bld) [Volume fraction] 35.6 % Low 40-54 [facility] Comment on above: Performed By: #### M 200.1000, L509.7001, L101.9900, L501.6710 #### [facility] [address] [place], [address] Hemoglobin (Bld) [Mass/Vol] 11.3 g/dL Low 13.0-16.5 [facility] Comment on above: Performed By: #### M 200.1000, L509.7001, L101.9900, L501.6710 #### [facility] [address] [place], [address] IG% 0.400 Normal 0.0-0.9 [facility] Comment on above: Result Comment: IG% - Immature Granulocytes (promyelocytes, myelocytes and metamyelocytes) > 1% indicates that a LEFT SHIFT is Present. Performed By: #### M 200.1000, L509.7001, L101.9900, L501.6710 #### [facility] [address] [place], [address] Lymphocytes/100 WBC (Bld) 6.7 % Low 19-41 [facility] Comment on above: Performed By: #### M 200.1000, L509.7001, L101.9900, L501.6710 #### [facility] [address] [place], [address] MCH (RBC) [Entitic mass] 24.7 pg Low 27.0-32.0 [facility] Comment on above: Performed By: #### M 200.1000, L509.7001, L101.9900, L501.6710 #### [facility] [address] [place], [address] MCHC (RBC) [Mass/Vol] 31.7 g/dL Low 32-36 [facility] Comment on above: Performed By: #### M 200.1000, L509.7001, L101.9900, L501.6710 #### [facility] [address] [place], [address] MCV (RBC) [Entitic vol] 77.7 fL Low 80-94 [facility] Comment on above: Performed By: #### M 200.1000, L509.7001, L101.9900, L501.6710 #### [facility] [address] [place], [address] Monocytes/100 WBC (Bld) 6.0 % Normal 0-10 [facility] Comment on above: Performed By: #### M 200.1000, L509.7001, L101.9900, L501.6710 #### [facility] [address] [place], [address] Neutrophils/100 WBC (Bld) 83.4 % High 47-70 [facility] Comment on above: Performed By: #### M 200.1000, L509.7001, L101.9900, L501.6710 #### [facility] [address] [place], [address] Nucleated RBC (Bld) [#/Vol] 0 10*3/uL Normal 0-5 [facility] Comment on above: Performed By: #### M 200.1000, L509.7001, L101.9900, L501.6710 #### [facility] [address] [place], [address] Platelet mean volume (Bld) [Entitic vol] 9.9 fL Normal 6.2-12.0 [facility] Comment on above: Performed By: #### M 200.1000, L509.7001, L101.9900, L501.6710 #### [facility] [address] [place], [address] Platelets (Bld) [#/Vol] 252 10*3/uL Normal 150-450 [facility] Comment on above: Performed By: #### M 200.1000, L509.7001, L101.9900, L501.6710 #### [facility] [address] [place], [address] RBC (Bld) [#/Vol] 4.58 10*6/uL Low 4.6-6.2 [facility] Comment on above: Performed By: #### M 200.1000, L509.7001, L101.9900, L501.6710 #### [facility] [address] [place], [address] RDW SD 48.2 fl High 35.1-43.9 [facility] Comment on above: Performed By: #### M 200.1000, L509.7001, L101.9900, L501.6710 #### [facility] [address] [place], [address] WBC (Bld) [#/Vol] 12.3 10*3/uL High 4.4-11.0 [facility] Comment on above: Performed By: #### M 200.1000, L509.7001, L101.9900, L501.6710 #### [facility] [address] [place], [address] Prothrombin Time w/INRon INR Coag (PPP) [Relative time] 1.8 {INR} Normal [facility] Comment on above: Performed By: #### L 300.3900 #### [facility] [address] [place], [address] PT Coag (PPP) [Time] 20.9 s High 11.7-14.9 [facility] Comment on above: Performed By: #### L 300.3900 #### [facility] [address] [place], [address] Trough vancomycin levelOrder ed By: Marta Black on 09-03-2024 Vancomycin trough [Mass/Vol] 8.2 ug/mL 5.0-15.0 [facility] Comment on above: Recommended goal tro [...] therapy recommended for serious lifethreatening infections include:- Wsouvxnmaa-Wpfwdkkrrbvx-Rghbukgdc (Ventilator/Healtcare Associated)-Sepsis PLEASE CONTACT PHARMACY SERVICES (#[id number]) FOR INTERPRETATIONOF RESULTS. Vancomycin, Trough Levelon 0 09-03-2024 VANCO, TROUGH 8.2 ug/mL Normal 5.0-15.0 [facility] Comment on above: Order Comment: Comme nts: Trough to be drawn 30 mins prior to scheduled [id number] Result Comment: Ilya mmended goal trough ranges [...] (Ventilator/Healtcare Associated) -Sepsis PLEASE CONTACT PHARMACY SERVICES (#[id number]) FOR INTERPRETATION OF RESULTS. Performed By: #### M 200.1000, L509.7001, L101.9900, L501.6710 #### [facility] [address] [place], [address] Basic Metabolic Profile (BMP )on 09-02-2024 BUN/CRE 18.9 RATIO Normal 10-20 [facility] Comment on above: Performed By: #### M 200.1000, L509.7001, L101.9900, L501.6710 #### [facility] [address] [place], [address] Calcium [Mass/Vol] 8.5 mg/dL Normal 7.6-11.0 [facility] Comment on above: Performed By: #### M 200.1000, L509.7001, L101.9900, L501.6710 #### [facility] [address] [place], [address] Chloride [Moles/Vol] 105 mmol/L Normal 98-108 [facility] Comment on above: Performed By: #### M 200.1000, L509.7001, L101.9900, L501.6710 #### [facility] [address] [place], [address] CO2 [Moles/Vol] 14.2 mmol/L Low 21.0-32.0 [facility] Comment on above: Performed By: #### M 200.1000, L509.7001, L101.9900, L501.6710 #### [facility] [address] [place], [address] Creatinine [Mass/Vol] 0.75 mg/dL Normal 0.70-1.20 [facility] Comment on above: Performed By: #### M 200.1000, L509.7001, L101.9900, L501.6710 #### [facility] [address] [place], [address] ECRCL 64.10 ml/min Normal 50-250 [facility] Comment on above: Performed By: #### M 200.1000, L509.7001, L101.9900, L501.6710 #### [facility] [address] [place], [address] GAP 15 Normal 5-15 [facility] Comment on above: Performed By: #### M 200.1000, L509.7001, L101.9900, L501.6710 #### [facility] [address] [place], [address] GFR/1.73 sq M.predicted among non-blacks MDRD (S/P/Bld) [Vol rate/Area] 86 mL/min/{1.73_m2} Normal >60 [facility] Comment on above: Result Comment: mL/m in/1.73m2 CKD-EPI Creatinine Equation (2020) Performed By: #### M 200.1000, L509.7001, L101.9900, L501.6710 #### [facility] [address] [place], [address] Glucose [Mass/Vol] 105 mg/dL High 70-99 [facility] Comment on above: Performed By: #### M 200.1000, L509.7001, L101.9900, L501.6710 #### [facility] [address] [place], [address] Potassium [Moles/Vol] 4.3 mmol/L Normal 3.3-5.1 [facility] Comment on above: Result Comment: Hemo lysis present, Results??could be affected. ?? Performed By: #### M 200.1000, L509.7001, L101.9900, L501.6710 #### [facility] [address] [place], [address] Sodium [Moles/Vol] 135 mmol/L Normal 133-145 [facility] Comment on above: Performed By: #### M 200.1000, L509.7001, L101.9900, L501.6710 #### [facility] [address] [place], [address] Urea nitrogen [Mass/Vol] 14 mg/dL Normal 4-19 [facility] Comment on above: Performed By: #### M 200.1000, L509.7001, L101.9900, L501.6710 #### [facility] [address] [place], [address] CBC W/Diff, Automatedon 06-03 25-2024 Absolute Lymph 0.52 X10 3/uL Low 0.83-4.51 [facility] Comment on above: Performed By: #### M 200.1000, L509.7001, L101.9900, L501.6710 #### [facility] [address] [place], [address] Absolute Neut 12.1 X10 3/uL High 2.0-7.7 [facility] Comment on above: Performed By: #### M 200.1000, L509.7001, L101.9900, L501.6710 #### [facility] [address] [place], [address] Basophils/100 WBC (Bld) 0.6 % Normal 0-1 [facility] Comment on above: Performed By: #### M 200.1000, L509.7001, L101.9900, L501.6710 #### [facility] [address] [place], [address] Eosinophils/100 WBC (Bld) 2.2 % Normal 0-5 [facility] Comment on above: Performed By: #### M 200.1000, L509.7001, L101.9900, L501.6710 #### [facility] [address] [place], [address] Erythrocyte distribution width (RBC) [Ratio] 17.8 % High 11.6-14.6 [facility] Comment on above: Performed By: #### M 200.1000, L509.7001, L101.9900, L501.6710 #### [facility] [address] [place], [address] Hematocrit (Bld) [Volume fraction] 39.9 % Low 40-54 [facility] Comment on above: Performed By: #### M 200.1000, L509.7001, L101.9900, L501.6710 #### [facility] [address] [place], [address] Hemoglobin (Bld) [Mass/Vol] 11.9 g/dL Low 13.0-16.5 [facility] Comment on above: Performed By: #### M 200.1000, L509.7001, L101.9900, L501.6710 #### [facility] [address] [place], [address] IG% 0.700 Normal 0.0-0.9 [facility] Comment on above: Result Comment: IG% - Immature Granulocytes (promyelocytes, myelocytes and metamyelocytes) > 1% indicates that a LEFT SHIFT is Present. Performed By: #### M 200.1000, L509.7001, L101.9900, L501.6710 #### [facility] [address] [place], [address] Lymphocytes/100 WBC (Bld) 3.8 % Low 19-41 [facility] Comment on above: Performed By: #### M 200.1000, L509.7001, L101.9900, L501.6710 #### [facility] [address] [place], [address] MCH (RBC) [Entitic mass] 24.5 pg Low 27.0-32.0 [facility] Comment on above: Performed By: #### M 200.1000, L509.7001, L101.9900, L501.6710 #### [facility] [address] [place], [address] MCHC (RBC) [Mass/Vol] 29.8 g/dL Low 32-36 [facility] Comment on above: Performed By: #### M 200.1000, L509.7001, L101.9900, L501.6710 #### [facility] [address] [place], [address] MCV (RBC) [Entitic vol] 82.3 fL Normal 80-94 [facility] Comment on above: Performed By: #### M 200.1000, L509.7001, L101.9900, L501.6710 #### [facility] [address] [place], [address] Monocytes/100 WBC (Bld) 4.8 % Normal 0-10 [facility] Comment on above: Performed By: #### M 200.1000, L509.7001, L101.9900, L501.6710 #### [facility] [address] [place], [address] Neutrophils/100 WBC (Bld) 87.9 % High 47-70 [facility] Comment on above: Performed By: #### M 200.1000, L509.7001, L101.9900, L501.6710 #### [facility] [address] [place], [address] Nucleated RBC (Bld) [#/Vol] 0 10*3/uL Normal 0-5 [facility] Comment on above: Performed By: #### M 200.1000, L509.7001, L101.9900, L501.6710 #### [facility] [address] [place], [address] Platelet mean volume (Bld) [Entitic vol] 10.6 fL Normal 6.2-12.0 [facility] Comment on above: Performed By: #### M 200.1000, L509.7001, L101.9900, L501.6710 #### [facility] [address] [place], [address] Platelets (Bld) [#/Vol] 227 10*3/uL Normal 150-450 [facility] Comment on above: Performed By: #### M 200.1000, L509.7001, L101.9900, L501.6710 #### [facility] [address] [place], [address] RBC (Bld) [#/Vol] 4.85 10*6/uL Normal 4.6-6.2 [facility] Comment on above: Performed By: #### M 200.1000, L509.7001, L101.9900, L501.6710 #### [facility] [address] [place], [address] RDW SD 52.3 fl High 35.1-43.9 [facility] Comment on above: Performed By: #### M 200.1000, L509.7001, L101.9900, L501.6710 #### [facility] [address] [place], [address] WBC (Bld) [#/Vol] 13.8 10*3/uL High 4.4-11.0 [facility] Comment on above: Performed By: #### M 200.1000, L509.7001, L101.9900, L501.6710 #### [facility] [address] [place], [address] Prothrombin Time w/INRon INR Coag (PPP) [Relative time] 1.9 {INR} Normal [facility] Comment on above: Performed By: #### M 200.1000, L509.7001, L101.9900, L501.6710 #### [facility] [address] [place], [address] PT Coag (PPP) [Time] 22.1 s High 11.7-14.9 [facility] Comment on above: Performed By: #### M 200.1000, L509.7001, L101.9900, L501.6710 #### [facility] [address] [place], [address] RESPIRATORY PANEL MOLECULARo n 09-02-2024 RP PANEL ADENOVIRUS Not Detected INFLUENZA A Not Detected INFLUENZA A (SUBTYPE H1) Not Detected INFLUENZA A (SUBTYPE H3) Not Detected INFLUENZA B Not Detected HUMAN METAPHNEUMO Not Detected PARAINFLUENZA 1 Not Detected PARAINFLUENZA 2 Not Detected PARAINFLUENZA 3 Not Detected PARAINFLUENZA 4 Not Detected RHINOVIRUS Not Detected RSV A Not Detected RSV B Not Detected Normal [facility] Comment on above: Performed By: #### M 200.1000, L509.7001, L101.9900, L501.6710 #### [facility] [address] [place], [address] Absolute lymphocyte countOrd ered By: Inderjit Glilespie on 09-01-2024 Lymphocytes Auto (Unsp spec) [#/Vol] 0.62 10*3/uL Low 0.83-4.51 [facility] Absolute neutrophil countOrd ered By: Inderjit Gillespie on 09-01-2024 Neutrophils (Bld) [#/Vol] 11.3 10*3/uL High 2.0-7.7 [facility] Anion gap in Serum or Plasma Ordered By: Inderjit Gillespie on 09-01-2024 Anion gap [Moles/Vol] 10 mmol/L 5-15 [facility] Automated lymphocyte count a s percentage of total leukocytesOrdered By: Inderjit Gillespie on 09-01-2024 Lymphocytes/100 WBC Auto (Unsp spec) 4.8 % Low 19-41 [facility] BUN/creatinine ratioOrdered By: Inderjit Gillespie on 09-01-2024 Urea nitrogen/Creatinine [Mass ratio] 21.6 mg/mg High 10-20 [facility] Basic Metabolic Profile (BMP )on 09-01-2024 BUN/CRE 21.6 RATIO High 10- [facility] Comment on above: Performed By: #### M 200.1000, L509.7001, L101.9900, L501.6710 #### [facility] [address] [place], [address] Calcium [Mass/Vol] 8.8 mg/dL Normal 7.6-11.0 [facility] Comment on above: Performed By: #### M 200.1000, L509.7001, L101.9900, L501.6710 #### [facility] [address] [place], [address] Chloride [Moles/Vol] 105 mmol/L Normal 98-108 [facility] Comment on above: Performed By: #### M 200.1000, L509.7001, L101.9900, L501.6710 #### [facility] [address] [place], [address] CO2 [Moles/Vol] 24.3 mmol/L Normal 21.0-32.0 [facility] Comment on above: Performed By: #### M 200.1000, L509.7001, L101.9900, L501.6710 #### [facility] [address] [place], [address] Creatinine [Mass/Vol] 0.77 mg/dL Normal 0.70-1.20 [facility] Comment on above: Performed By: #### M 200.1000, L509.7001, L101.9900, L501.6710 #### [facility] [address] [place], [address] ECRCL 68.71 ml/min Normal 50-250 [facility] Comment on above: Performed By: #### M 200.1000, L509.7001, L101.9900, L501.6710 #### [facility] [address] [place], [address] GAP 10 Normal 5-15 [facility] Comment on above: Performed By: #### M 200.1000, L509.7001, L101.9900, L501.6710 #### [facility] [address] [place], [address] GFR/1.73 sq M.predicted among non-blacks MDRD (S/P/Bld) [Vol rate/Area] 86 mL/min/{1.73_m2} Normal >60 [facility] Comment on above: Result Comment: mL/m in/1.73m2 CKD-EPI Creatinine Equation (2020) Performed By: #### M 200.1000, L509.7001, L101.9900, L501.6710 #### [facility] [address] [place], [address] Glucose [Mass/Vol] 112 mg/dL High 70-99 [facility] Comment on above: Performed By: #### M 200.1000, L509.7001, L101.9900, L501.6710 #### [facility] [address] [place], [address] Potassium [Moles/Vol] 3.7 mmol/L Normal 3.3-5.1 [facility] Comment on above: Performed By: #### M 200.1000, L509.7001, L101.9900, L501.6710 #### [facility] [address] [place], [address] Sodium [Moles/Vol] 139 mmol/L Normal 133-145 [facility] Comment on above: Performed By: #### M 200.1000, L509.7001, L101.9900, L501.6710 #### [facility] [address] [place], [address] Urea nitrogen [Mass/Vol] 17 mg/dL Normal 4-19 [facility] Comment on above: Performed By: #### M 200.1000, L509.7001, L101.9900, L501.6710 #### [facility] [address] [place], [address] Basophil percentageOrdered B y: Inderjit Gillespie on 09-01-2024 Basophils/100 WBC (Bld) 0.4 % 0-1 [facility] Bilirubin Test strip Ql (U)O rdered By: Inderjit Gillespie on 09-01-2024 Bilirubin Ql (U) Negative Negative [facility] Blood cultureOrdered By: Magnolia Black on 09-01-2024 Bacteria identified Cx Nom (Bld) No growth in 5 days. [facility] Brain/Head without Contrasto n 09-01-2024 Brain/Head without Contrast [facility] [address] [place] [address] Brain/Head without Contrast MR#: [id number] Acct: [id number] Name: ROBY FLORES Rep #: [id number] : 1935 M 89 From: Jose harris MD PCP: Dr. Stas Mora MD Status: REG ER Study: Brain/Head without Contrast Date of Exam: 08/21 05/17 Exam# [id number] Ordering Dr: Inderjit Gillespie MD PROCEDURE: BRAIN/HEAD [...] left maxillary sinus. Reading Location: [place] [address] CC: Dr. Inderjit Gillespie MD; Dr. Stas Mora MD Port Traffic Manager: Signed Normal [facility] CBC W/Diff, Automatedon 08-21 Absolute Lymph 0.62 X10 3/uL Low 0.83-4.51 [facility] Comment on above: Performed By: #### M 200.1000, L509.7001, L101.9900, L501.6710 #### [facility] [address] [place], [address] Absolute Neut 11.3 X10 3/uL High 2.0-7.7 [facility] Comment on above: Performed By: #### M 200.1000, L509.7001, L101.9900, L501.6710 #### [facility] [address] [place], [address] Basophils/100 WBC (Bld) 0.4 % Normal 0-1 [facility] Comment on above: Performed By: #### M 200.1000, L509.7001, L101.9900, L501.6710 #### [facility] [address] [place], [address] Eosinophils/100 WBC (Bld) 1.2 % Normal 0-5 [facility] Comment on above: Performed By: #### M 200.1000, L509.7001, L101.9900, L501.6710 #### [facility] [address] [place], [address] Erythrocyte distribution width (RBC) [Ratio] 17.2 % High 11.6-14.6 [facility] Comment on above: Performed By: #### M 200.1000, L509.7001, L101.9900, L501.6710 #### [facility] [address] [place], [address] Hematocrit (Bld) [Volume fraction] 36.8 % Low 40-54 [facility] Comment on above: Performed By: #### M 200.1000, L509.7001, L101.9900, L501.6710 #### [facility] [address] [place], [address] Hemoglobin (Bld) [Mass/Vol] 11.6 g/dL Low 13.0-16.5 [facility] Comment on above: Performed By: #### M 200.1000, L509.7001, L101.9900, L501.6710 #### [facility] [address] [place], [address] IG% 0.400 Normal 0.0-0.9 [facility] Comment on above: Result Comment: IG% - Immature Granulocytes (promyelocytes, myelocytes and metamyelocytes) > 1% indicates that a LEFT SHIFT is Present. Performed By: #### M 200.1000, L509.7001, L101.9900, L501.6710 #### [facility] [address] [place], [address] Lymphocytes/100 WBC (Bld) 4.8 % Low 19-41 [facility] Comment on above: Performed By: #### M 200.1000, L509.7001, L101.9900, L501.6710 #### [facility] [address] [place], [address] MCH (RBC) [Entitic mass] 24.6 pg Low 27.0-32.0 [facility] Comment on above: Performed By: #### M 200.1000, L509.7001, L101.9900, L501.6710 #### [facility] [address] [place], [address] MCHC (RBC) [Mass/Vol] 31.5 g/dL Low 32-36 [facility] Comment on above: Performed By: #### M 200.1000, L509.7001, L101.9900, L501.6710 #### [facility] [address] [place], [address] MCV (RBC) [Entitic vol] 78.0 fL Low 80-94 [facility] Comment on above: Performed By: #### M 200.1000, L509.7001, L101.9900, L501.6710 #### [facility] [address] [place], [address] Monocytes/100 WBC (Bld) 5.7 % Normal 0-10 [facility] Comment on above: Performed By: #### M 200.1000, L509.7001, L101.9900, L501.6710 #### [facility] [address] [place], [address] Neutrophils/100 WBC (Bld) 87.5 % High 47-70 [facility] Comment on above: Performed By: #### M 200.1000, L509.7001, L101.9900, L501.6710 #### [facility] [address] [place], [address] Nucleated RBC (Bld) [#/Vol] 0 10*3/uL Normal 0-5 [facility] Comment on above: Performed By: #### M 200.1000, L509.7001, L101.9900, L501.6710 #### [facility] [address] [place], [address] Platelet mean volume (Bld) [Entitic vol] 9.4 fL Normal 6.2-12.0 [facility] Comment on above: Performed By: #### M 200.1000, L509.7001, L101.9900, L501.6710 #### [facility] [address] [place], [address] Platelets (Bld) [#/Vol] 258 10*3/uL Normal 150-450 [facility] Comment on above: Performed By: #### M 200.1000, L509.7001, L101.9900, L501.6710 #### [facility] [address] [place], [address] RBC (Bld) [#/Vol] 4.72 10*6/uL Normal 4.6-6.2 [facility] Comment on above: Performed By: #### M 200.1000, L509.7001, L101.9900, L501.6710 #### [facility] [address] [place], [address] RDW SD 48.2 fl High 35.1-43.9 [facility] Comment on above: Performed By: #### M 200.1000, L509.7001, L101.9900, L501.6710 #### [facility] [address] [place], [address] WBC (Bld) [#/Vol] 12.9 10*3/uL High 4.4-11.0 [facility] Comment on above: Performed By: #### M 200.1000, L509.7001, L101.9900, L501.6710 #### [facility] [address] [place], [address] CNPNon 09-01-2024 [facility] Telephone (PHMEWO) ROBY FLORES ([id number]) 1935 M Date Time Provider Department 09/01/24 RUSSELL AGUAYO PHMEWO During your visit today, we recorded the following information about you: Russell Aguayo [facility] 09/01/2024 10:01 AM Signed [...] affordable alvarado using Good Rx coupons. At [facility] (his current pharmacy), he can get a 1 mo supply for ~$30. If he switches the prescription to [facility], he can get a 1 mo supply for ~$20. See coupons below. Rivastigmine patches are also available via GoodRx. It appears the cheapest option is through [facility], in which he can get 30 patches for $52. Coupon also below. Sending to PCP to review and provide patient with coupon card information. Russell Aguayo, Saúl, [facility] Primary Care Clinical Pharmacist Memantine coupon at [facility] Memantine coupon at [facility] Rivastigmine patches coupon at [facility] Luciana Cisneros MD 09/01/2024 1:27 PM Signed Rahul Chau, Staff please let patient know what the pharmacist as opined on. 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, [address] COVID-19 virus antigen assay Ordered By: Marta Black on 09-01-2024 SARS-CoV-2 (COVID-19) Ag IA.rapid Ql (Resp) [facility] CRPon 09-01-2024 C-REACTIVE PROT 26.80 mg/L High 0.0-3.0 [facility] Comment on above: Performed By: #### M 200.1000, L509.7001, L101.9900, L501.6710 #### [facility] [address] [place], [address] Carbon dioxide, total [Moles /volume] in Central venous bloodOrdered By: Inderjit Gillespie on 09-01-2024 CO2 [Moles/Vol] 24.3 mmol/L 21.0-32.0 [facility] Chest 1 View (Portable)on Chest 1 View (Portable) [facility] [address] [place], [place] [address] Chest 1 View (Portable) MR#: [id number] Acct: [id number] Name: ROBY FLORES Rep #: [id number] : 1935 M 89 From: Jose harris MD PCP: Dr. Stas Mora MD Status: REG ER Study: Chest 1 View (Portable) Date of Exam: 09/01/24 Exam# [id number] Ordering Dr: Inderjit Gillespie MD PROCEDURE: CHEST [...] No acute abnormality is seen. Reading Location: [facility] CC: Dr. Inderjit Gillespie MD; Dr. Stas Mora MD Port Traffic Manager: Signed Normal [facility] Chloride assayOrdered By: Aries Gillespie on 09-01-2024 Chloride [Moles/Vol] 105 mmol/L 98-108 [facility] Emergency Department Summary on 09-01-2024 Emergency Department Summary [facility] Medical Records Department [address] [place] [address] Emergency Department Summary 09/01/24 MR#: [id number] Acct: [id number] Name: ROBY FLORES Rep #: [id number] : 1935 89 From: Inderjit Gillespie MD [...] shoulders elbows and wrist. 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 Neurologically he is awake alert. Answering [...] Air 09/01/24 (more content not included)... Normal [facility] Eosinophil percentageOrdered By: Inderjit Gillespie on 09-01-2024 Eosinophils/100 WBC (Bld) 1.2 % 0-5 [facility] Erythrocyte Sed Rateon 09-01 SED RATE 2 mm/hr Normal 0-20 [facility] Comment on above: Performed By: #### M 200.1000, L509.7001, L101.9900, L501.6710 #### [facility] [place], [address] Erythrocyte distribution wid th ratioOrdered By: Inderjit Gillespie on 09-01-2024 Erythrocyte distribution width (RBC) [Ratio] 17.2 % High 11.6-14.6 [facility] Erythrocyte distribution wid th standard deviationOrdered By: Inderjit Gillespie on 09-01-2024 Erythrocyte distribution width (RBC) [Ratio] 48.2 fl High 35.1-43.9 [facility] Erythrocyte sedimentation ra teOrdered By: Marta Black on 09-01-2024 ESR (Bld) [Velocity] 2 mm/h 0-20 [facility] Glomerular filtration rate ( GFR) estimation/1.73 sq m using serum, plasma, or whole bOrdered By: Inderjit Gillespie on 09-01-2024 GFR/1.73 sq M.predicted among non-blacks MDRD (S/P/Bld) [Vol rate/Area] 86 mL/min/{1.73_m2} >60 [facility] Comment on above: mL/min/1.73m2 CKD-EP I Creatinine Equation (2020) H AND P Exam - [facility] 09-01-2024 H&P Exam - Hospitalist [facility] Medical Records Department [address] [place] [address] H P Exam - Hospitalist 09/01/24 1018 MR#: [id number] Acct: [id number] Name: ROBY FLORES Rep #: [id number] : 1935 89 From: Kathy Wells MD PCP: Dr. Stas Mora MD Status:ADM GERMAN Location: [address] HPI - General General Date of [...] in the ED were BP of 180/89, LA of 87, RR of 18 and temp [...] and weakness due to mechanical fall. [facility] Medical History Chronic anticoagulation [...] 99 Oxy (more content not included)... Normal [facility] Hematocrit Auto (Bld) [Volum e fraction]Ordered By: Inderjit Gillespie on 09-01-2024 Hematocrit (Bld) [Volume fraction] 36.8 % Low 40-54 [facility] Hemoglobin measurementOrdere d By: Inderjit Gillespie on 09-01-2024 Hemoglobin (Bld) [Mass/Vol] 11.6 g/dL Low 13.0-16.5 [facility] Hips B/L min 2 views w/ Pelv adolfo 09-01-2024 Hips B/L min 2 views w/ Pelvis [facility] Services [address] [place] [address] Hips B/L min 2 views w/ Pelvis MR#: [id number] Acct: [id number] Name: SANDRAROBY Radha Rep #: [id number] : 1935 M 89 From: Jose harris MD PCP: Dr. Stas Mora MD Status: REG ER Study: Hips B/L min 2 views w/ Pelvis Date of Exam: 0 09/01/24 Exam# [id number] Ordering Dr: Inderjit Gillespie MD PROCEDURE: HIPS [...] or dislocation present. Reading Location: [place] [address] CC: Dr. Inderjit Gillespie MD; Dr. Stas Mora MD Port Traffic Manager: Signed Normal [facility] Immature granulocytes/100 WB C Auto (Bld)Ordered By: Inderjit Gillespie on 09-01-2024 Immature granulocytes/100 WBC (Bld) 0.400 % 0.0-0.9 [facility] Comment on above: IG% - Immature Granu locytes (promyelocytes, myelocytes and metamyelocytes) > 1% indicates that a LEFT SHIFT is Present. International normalized rat io (INR) calculationOrdered By: Inderjit Gillepsie on 09-01-2024 INR Coag (Bld) [Relative time] 1.8 {INR} [facility] Ketones Test strip Ql (U)Ord ered By: Inderjit Gillespie on 09-01-2024 Ketones Ql (U) Negative Negative [facility] L509.7001on 09-01-2024 Procalcitonin 0.07 ng/mL Normal <=0.10 [facility] Comment on above: Result Comment: Inte [...] #### M 200.1000, L509.7001, L101.9900, L501.6710 #### [facility] [address] [place], [address] MCV (mean corpuscular volume ) determinationOrdered By: Inderjit Gillespie on 09-01-2024 MCV (RBC) [Entitic vol] 78.0 fL Low 80-94 [facility] Mean corpuscular hemoglobin (MCH) determinationOrdered By: Inderjit Gillespie on 09-01-2024 MCH (RBC) [Entitic mass] 24.6 pg Low 27.0-32.0 [facility] Mean corpuscular hemoglobin concentration (MCHC) determinationOrdered By: Inderjit Gillespie on 09-01-2024 MCHC (RBC) [Mass/Vol] 31.5 g/dL Low 32-36 [facility] Mean platelet volume determi nationOrdered By: Inderjit Gillespie on 09-01-2024 Platelet mean volume (Bld) [Entitic vol] 9.4 fL 6.2-12.0 [facility] Microscopic analysis of urin e for red blood cells (RBC)Ordered By: Inderjit Gillespie on 09-01-2024 Microscopic analysis of urine for red blood cells (RBC) 0 SEEN /hpf 0- [facility] Monocyte percentageOrdered B y: Inderjit Gillespie on 09-01-2024 Monocytes/100 WBC (Bld) 5.7 % 0-10 [facility] Mucus LM Ql (Urine sed)Order ed By: Inderjit Gillespie on 09-01-2024 Mucus Ql (Urine sed) 0 SEEN /hpf [facility] Neutrophil percentageOrdered By: Inderjit Gillespie on 09-01-2024 Neutrophils/100 WBC (Bld) 87.5 % High 47-70 [facility] Nitrite Test strip Ql (U)Ord ered By: Inderjit Gillespie on 09-01-2024 Nitrite Ql (U) Negative Negative [facility] Nucleated red blood cell per centageOrdered By: Inderjit Gillespie on 09-01-2024 Nucleated RBC/100 WBC (Bld) [Ratio] 0 % 0-5 [facility] Platelet countOrdered By: Aries Gillespie on 09-01-2024 Platelets (Bld) [#/Vol] 258 10*3/uL 150-450 [facility] Potassium measurement (mass/ volume)Ordered By: Inderjit Gillespie on 09-01-2024 Potassium (Unsp spec) [Mass/Vol] 3.7 mmol/L 3.3-5.1 [facility] Procalcitonin [Mass/volume] in Serum or Plasma by ImmunoassayOrdered By: Marta Black on 09-01-2024 Procalcitonin IA [Mass/Vol] 0.07 ng/mL <0.11 [facility] Comment on above: Interpretation:<0.10 -0.25 ng/mL: [...] Protein Ql (U) 15 mg/dl High Negative [facility] Prothrombin Time w/INRon INR Coag (PPP) [Relative time] 1.8 {INR} Normal [facility] Comment on above: Performed By: #### M 200.1000, L509.7001, L101.9900, L501.6710 #### [facility] [address] [place], [address] PT Coag (PPP) [Time] 21.4 s High 11.7-14.9 [facility] Comment on above: Performed By: #### M 200.1000, L509.7001, L101.9900, L501.6710 #### [facility] [address] [place], [address] Prothrombin timeOrdered By: Inderjit Gillespie on 09-01-2024 PT Coag (PPP) [Time] 21.4 s High 11.7-14.9 [facility] RBC Auto (Bld) [#/Vol]Ordere d By: Inderjit Gillespie on 09-01-2024 RBC (Bld) [#/Vol] 4.72 10*6/uL 4.6-6.2 [facility] Respiratory pathogens detect ion panel by molecular detection methodOrdered By: Marta Black on 09-01-2024 Respiratory pathogens DNA and RNA panel LOLI+probe (Resp) [facility] Serum creatinine measurement (mass/volume)Ordered By: Inderjit Gillespie on 09-01-2024 Creatinine [Mass/Vol] 0.77 mg/dL 0.70-1.20 [facility] Serum glucose measurement (m ass/volume)Ordered By: Inderjit Gillespie on 09-01-2024 Glucose [Mass/Vol] 112 mg/dL High 70-99 [facility] Serum or plasma C reactive p rotein measurement (mass/volume)Ordered By: Marta Black on 09-01-2024 CRP [Mass/Vol] 26.80 mg/L High 0.0-3.0 [facility] Serum or plasma calcium alvaro urement (mass/volume)Ordered By: Inderjit Gillespie on 09-01-2024 Calcium [Mass/Vol] 8.8 mg/dL 7.6-11.0 [facility] Serum or plasma urea nitroge n measurement (mass/volume)Ordered By: Inderjit Gillespie on 09-01-2024 Urea nitrogen [Mass/Vol] 17 mg/dL 4-19 [facility] Sodium levelOrdered By: Inderjit Gillespie on 09-01-2024 Sodium [Moles/Vol] 139 mmol/L 133-145 [facility] Squamous epithelial cells de tection in urine sediment by light microscopyOrdered By: Inderjit Gillespie on 09-01-2024 Epithelial cells.squamous LM Ql (Urine sed) 0 SEEN /hpf 0-5 [facility] Urinalysis, Completeon 09-01 BACTERIA 0 SEEN Normal None Seen [facility] Comment on above: Order Comment: CLEAN CATCH Performed By: #### L 400.0001 #### [facility] [address] [place], [address] EPI,SQUAMOUS 0 SEEN Normal 0-5 [facility] Comment on above: Order Comment: CLEAN CATCH Performed By: #### L 400.0001 #### [facility] [address] [place], [place], [address] Mucus Ql (Urine sed) 0 SEEN Normal [facility] Comment on above: Order Comment: CLEAN CATCH Performed By: #### L 400.0001 #### [facility] [address] [place], [address] RBC 0 SEEN Normal 0-5 [facility] Comment on above: Order Comment: CLEAN CATCH Performed By: #### L 400.0001 #### [facility] [address] [place], [address] WBC 0 SEEN Normal 0-5 [facility] Comment on above: Order Comment: CLEAN CATCH Performed By: #### L 400.0001 #### [facility] [address] [place], [place], [address] Urine clarityOrdered By: Mario Gillespie on 09-01-2024 Clarity (U) Clear Clear [facility] Urine color determinationOrd ered By: Inderjit Gillespie on 09-01-2024 Color (U) Yellow Yellow [facility] Urine glucose detectionOrder ed By: Inderjit Gillespie on 09-01-2024 Glucose Ql (U) Normal mg/dl Normal [facility] Urine leukocyte esterase det ection by dipstickOrdered By: Inderjit Gillespie on 09-01-2024 Leukocyte esterase Test strip Ql (U) Negative Negative [facility] Urine pHOrdered By: Inderjit pack on 09-01-2024 pH (U) 8.0 [pH] 5.0 - 8.0 [facility] Urine sediment bacteria coun t by microscopy (number/high power field)Ordered By: Inderjit Gillespie on 09-01-2024 Bacteria LM.HPF (Urine sed) [#/Area] 0 /[HPF] None Seen [facility] Urine specific gravity measu rementOrdered By: Inderjit Gillespie on 09-01-2024 Specific gravity (U) [Rel density] 1.010 1.002-1.03 0 [facility] Urine urobilinogen measureme ntOrdered By: Inderjit Gillespie on 09-01-2024 Urobilinogen Ql (U) 4 mg/dl High Normal [facility] White blood cell (WBC) count Ordered By: Inderjit Gillespie on 09-01-2024 WBC (Bld) [#/Vol] 12.9 10*3/uL High 4.4-11.0 [facility] White blood cell countOrdere d By: Inderjit Gillespie on 09-01-2024 White blood cell count 0 SEEN /hpf 0-5 [facility] CNOVon 08-31-2024 CNOV Office Visit (RAMBOR ) SANDRAROBY E ([id number]) 1935 M Date Time Provider Department 08/31/24 [...] and believing his brother, who lives in [place], was present. Jaquan also thought he had a car in [facility] and wanted to retrieve it, despite not having a cdl b driver's license or a car there. Additionally, [...] tablet wa (more content not included)... 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 Coretta Jalloh RPh 09/28/2024 11:30 AM Signed Per TE on 09/21, pt is in [facility] living for rehab. He has been for for nearly 3 weeks now. Will check back next week before we call Maria Guadalupe. Will watch for notes of discharge. Coretta Jalloh [facility] Hakan Jallohantha [facility] 10/05/2024 2:05 PM Signed Spoke to Maria Guadalupe. She said he is at an AL Facility and they are managing his AC but she isn't aware of results. She isn't sure of discharge timing. She said maybe check back in a few weeks. Will check back in October for any updates. Coretta Jalloh [facility] Adrian (Starch And Prosize Mixer)Elana 10/27/2024 4:17 PM Signed Updating PCC LTC / Rehab list. Called and stp patient's significant other, Maria Guadalupe. She stated patient is still in SNF at this time. She was agreeable to f/u in a few weeks. Tracker updated for f/u in 2-3 weeks. Elana Campbell CPhT (Cone Machine Operator) Pharmacy Anticoagulation Clinic Satish ([employer]er)Parmjit 11/25/2024 3:45 PM Signed Left message requesting an update. Patient has appt with PCP 12/05. Will update tracker to that day to see if there are any updates. Adrian ([employer]er)Elana 12/08/2024 4:41 PM Signed Updating PCC LTC / Rehab list. Attempted to call patient's caregiver, Maria Guadalupe, to get update on LTC/SNF status. Message left requesting a return call to [phone], option 2. Elana Campbell CPhT (Cone Machine Operator) Pharmacy Anticoagulation Clinic Adrian (St[employer] Mixer), Elana 12/22/2024 3:52 PM Signed Updating PCC LTC / Rehab list. Attempted to call patient's caregiver, Maria Guadalupe, to get update on LTC/SNF status. Message left requesting a return call to [phone], option 2. Elana Campbell CPhT (Cone Machine Operator) Pharmacy [facility]ticoagulation [facility] Adrian (Starch And Prosize Mixer), Elana 12/29/2024 5:26 PM Signed Updating PCC LTC / Rehab list. Attempted to call patient's caregiver, Maria Guadalupe, to get update on LTC/SNF status. Message left requesting a return call to [phone], option 2. Elana Campbell CPhT (Cone Machine Operator) Pharmacy Anticoagulation Clinic Adrian (Starch And Prosize Mixer), (more content not included)... Normal [facility] PT panel Coag (PPP)on 2024 INR Coag (PPP) [Relative time] 1.9 {INR} High 0.9-1.3 [facility] Comment on above: Order Comment: Stone parmar Type: BLOOD SPECIMENOrdering Facility: [facility] Address: [address] [place] [address] Result Comment: Mary min K Antagonist (VKA) Therapeutic Range: INR 2 to 3 (Target INR of 2.5) Note: For patients treated with VKA drugs, such as warfarin, the [employer] [employer] 2012 Guideline recommends [...] Chest 2012, 141:7S-47S Avel RA, et al. [facility] 2017, 70: 252-289 Performed By: #### 3 4528-0 ####[facility] CENTERNCRachel [id number] [place] [address] [place] PT Coag (PPP) [Time] 19.2 s High <13.1 [facility] Comment on above: Order Comment: Stone parmar Type: BLOOD SPECIMENOrdering Facility: [facility] Address: [address] [place] [address] Performed By: #### 3 4528-0 ####[facility] CENTERJERMAIN [id number] [place] [id number] [place] Gene 08-03-2024 CNPN Telephone (PHAMTE) ROBY FLORES ([id number]) 1935 M Date Time Provider Department 08/03/24 CORETTA JALLOH During your visit today, we recorded the following information about you: Coretta Jalloh [facility] 08/03/2024 10:52 AM Signed [facility] Anticoagulation Clinic Anticoagulation Episode Summary Anticoagulation Care Providers Provider Role Specialty Phone number Stas Moar MD Referring Family Medicine [phone] Roby Flores is a 88 year old [...] all other days Left voice message For Mraia Guadalupe. Advised patient to continue current weekly dose as noted above Next lab INR check scheduled on 08/31/2024 Patient advised to call the PAC with any medication changes, bleeding/bruising concerns, recent changes in vitamin k consumption, if any procedures are coming up, if they have been ill or in the hospital, and if they have missed any doses of warfarin. Coretta Jalloh [facility] Clinical Pharmacist, Pharmacy Anticoagulation Clinic Pharmacy Anticoagulation Clinic Pager: [phone]. Adrian (Acousticeye)Elana 08/03/2024 11:01 AM Signed PATIENT CALL Patient [...] 08/31/2024 Caregiver verbalized understanding. Will route to [facility] as FYI. Elana Campbell (Acousticeye) Coretta Jalloh riya 08/03/2024 11:20 AM Signed [...] Status:Closed by CORETTA JALLOH on 08/03/24 Normal [facility] PT panel Coag (PPP)on 2024 INR Coag (PPP) [Relative time] 2.5 {INR} High 0.9-1.3 [facility] Comment on above: Order Comment: Speci men Type: BLOOD SPECIMEN Ordering Facility: [facility] Address: [address] [place] [address] Result Comment: Mary min K Antagonist (VKA) Therapeutic Range: INR 2 to 3 (Target INR of 2.5) Note: For patients treated with VKA drugs, such as warfarin, the [employer] 2012 Guideline recommends [...] Chest 2012, 141:7S-47S Avel RA, et al. [facility] 2017, 70: 252-289 Performed By: #### 3 4528-0 #### [facility]ITALIA [id number] [address] [place] [address] [place] PT Coag (PPP) [Time] 24.3 s High <13.1 [facility] Comment on above: Order Comment: Speci men Type: BLOOD SPECIMEN Ordering Facility: [facility] Address: [address] [place] [address] Performed By: #### 3 4528-0 #### [facility]IA [id number] [address] [place] [address] OF [facility] CNOVon 07-28-2024 CNOV Office Visit (QUIQUEPWS ) ROBY FLORES ([id number]) 1935 M Date Time Provider Department 07/28/24 11:20 AM STAS MORA FAMPWS During your visit today, we recorded the following information about you: Pulse Respiration Blood pressure Weight 56/minute 16/minute 136/78 74.1 kg Stas Mora MD 07/28/2024 11:21 AM Signed Chief Complaint Patient presents with: Lump: Elbow HPI Robykaran Flores is a 88 year old male [...] Coronary atherosclerosis of unspecified type of vessel, tununak or graft Coronary artery disease Other and [...] Past Histories independently gathered by the clinical merchandise support associate and the remaining scribed note accurately describes [...] - Fully Assessed Reason for Visit: Lump [03995] Cmt: Elbow Primary Visit Diagnosis:Bursitis of right elbow, unspecified bursa [M70.31] Prescriptions as of 07/28/2024 - memantine (NAMENDA) 10 mg tablet Take 1 tablet by mouth two times a day. - atorvastatin (LIPITOR) 40 mg tablet Take 1 tablet by mouth daily at bedtime. - warfarin (COUMADIN) 2.5 mg tablet Take as directed (more content not included)... 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 [Z79.01]09/22/2016 Paroxysmal atrial fibrillation (HCC) [I48.0] 09/22/2016 Hyperlipidemia [E78.5] 08/26/2022 Encounter Status:Closed by WENDY FAULKNER on 07/18/24 [facility] Gene 07-06-2024 CNPN Telephone (PHAMTE) SANDRAROBY Garcia ([id number]) 1935 M Date Time Provider Department 07/06/24 CORETTA JALLOH During your visit today, we recorded the following information about you: Coretta Jalloh RPh 07/06/2024 10:16 AM Signed [facility]ulatory Pharm[facility] Anticoagulation Clinic Anticoagulation Episode Summary Anticoagulation Care Providers Provider Role Specialty Phone number Stas Mora MD Referring Family Medicine [phone] Roby Radha Flores is a 88 year [...] missed any doses of warfarin. Coretta Jalloh [facility] Clinical Pharmacist, Pharmacy Anticoagulation Clinic Pharmacy Anticoagulation Clinic Pager: [phone]. 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] 04/24/2011 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 [Z79.01]09/22/2016 Paroxysmal atrial fibrillation (HCC) [I48.0] 09/22/2016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 [facility] Thin prep Papanicolaou smear with manual screeningOrdered By: Brian Cunningham on 02-10-2023 Thin prep Papanicolaou smear with manual screening 2 5-15 [facility] Urine blood detectionOrdered By: Brian Cunningham on 02-10-2023 RBC Ql (U) Negative Negative [facility] RBC Ql (U) 0 SEEN /hpf 0-5 [facility] Urine clarityOrdered By: Caitlyn Cunningham on 02-10-2023 Clarity (U) Clear Clear [facility] Urine color determinationOrd ered By: Brian Cunningham on 02-10-2023 Color (U) Yellow Yellow [facility] Urine glucose detectionOrder ed By: Brian Cunningham on 02-10-2023 Glucose Ql (U) Normal mg/dl Normal [facility] Urine leukocyte esterase det ection by dipstickOrdered By: Brian Cunningham on 02-10-2023 Leukocyte esterase Test strip Ql (U) 25 /ul Negative [facility] Urine pHOrdered By: Brian swain on 02-10-2023 pH (U) 6.5 [pH] 5.0 - 8.0 [facility] Urine sediment bacteria coun t by microscopy (number/high power field)Ordered By: Brian Cunningham on 02-10-2023 Bacteria LM.HPF (Urine sed) [#/Area] 0 /[HPF] None Seen [facility] Urine specific gravity measu rementOrdered By: Brian Cunningham on 02-10-2023 Specific gravity (U) [Rel density] 1.015 1.002-1.03 0 [facility] Urobilinogen Auto test strip Ql (U)Ordered By: Brian Cunningham on 02-10-2023 Urobilinogen Ql (U) 4 mg/dl Normal [facility] CT HEAD OR BRAIN W/O [...] 11/17/2022 4:26:20 PM Ordering Provider: STERLING LYNCH [facility] ([place]) XR Pelvis and Hip - left AP and Lateral frogon 05-21-2022 IMPRESSION: No acute fracture or hip dislocation Port Traffic Manager: [facility]ENTERQuentin Transcribe Date/Time: May 21 2022 3:41P Dictated by : JUDY MCKENZIE MD This examination was interpreted and the report reviewed and electronically signed by: JUDY MCKENZIE MD on May 21 2022 3:43PM [facility] DIVISION OF RADIOLOGY * * *Final Report* [...] Small acetabular osteophytes. DIVISION OF RADIOLOGY Provider, [facility] - 05/21/2022 * * *Final Report* [...] IMPRESSION: No acute fracture or hip dislocation Port Traffic Manager: EDUAR Transcribe Date/Time: May 21 2022 3:41P Dictated by : JUDY MCKENZIE MD This examination was interpreted and the report reviewed and electronically signed by: JUDY MCKENZIE MD on May 21 2022 3:43PM [facility] Radiology Study observation (narrative) [facility] XR Pelvis and Hip - left AP and Lateral frogOrdered By: Ccf Provider on 05-21-2022 [facility] PT panel Coag (PPP)on 2022 INR Coag (Bld) [Relative time] 1.7 {INR} [facility] Basophil percentageon 2021 Cholesterol [Mass/Vol] 152 mg/dL <200 [facility] Work Phone: Comment on above: <200 mg/dL Desirable 200-240 mg/dL Borderline >240 mg/dL High Risk Triglyceride [Mass/Vol] 76 mg/dL <199 [facility] Work Phone: Comment on above: The drugs N-Acetylcy steine and Metamizole may falsely depress this assay.Serum Triglycerides Reference Interval Normal <150 mg/dL Borderline high 150 - 199 mg/dL High 200 - 499 mg/dL Very High > or = 500 mg/dL INR in Blood by Coagulation assayon 12-22-2021 INR Coag (Bld) [Relative time] 2.5 {INR} [facility] Work Phone: Laboratory - Chemistry and C hemistry - challengeon 12-22-2021 Magnesium [Mass/Vol] 2.1 mg/dL 1.6-2.6 [facility] Work Phone: Laboratory - Coagulationon 1 PT Coag (PPP) [Time] 27.0 s 11.7-14.9 [facility] Work Phone: No Panel Informationon 12-22 Thyroid Stimulating Hormone (TSH) 0.42 uIU/mL 0.358-3.74 [facility] Work Phone: Serum or plasma cholesterol in HDL measurement (mass/volume)on 12-22-2021 Cholesterol in HDL [Mass/Vol] 35 mg/dL >40 [facility] Work Phone: Comment on above: The drugs N-Acetylcy steine and Metamizole may falsely depress this assay. Reference Range HDL <40 mg/dL Low HDL Cholesterol HDL >or= 60 mg/dL High HDL Cholesterol Serum or plasma cholesterol in VLDL measurement (mass/volume)on 12-22-2021 Cholesterol in VLDL [Mass/Vol] 15 mg/dL 5-40 [facility] Work Phone: Serum or plasma low density lipoprotein (LDL) cholesterol measurement (mass/volume)on 12-22-2021 Cholesterol in LDL [Mass/Vol] 102 mg/dL 0-130 [facility] Work Phone: Whole blood hemoglobin A1c/t otal hemoglobin ratio (mass fraction)on 12-22-2021 HbA1c (Bld) [Mass fraction] 5.9 % 3.8-5.6 [facility] Work Phone: Comment on above: Normal < 5.7 % Predi abetic 5.7 - 6.4 % Diabetic >or= 6.5 % Please note range changes. Absolute lymphocyte counton 12-21-2021 Lymphocytes Auto (Unsp spec) [#/Vol] 1.23 10*3/uL 0.83-4.51 [facility] Work Phone: Basophil percentageon 2021 Basophils/100 WBC (Bld) 0.4 % 0-1 [facility] Work Phone: Chloride [Moles/Vol] 106 mmol/L 98-107 [facility] Work Phone: Eosinophils/100 WBC (Bld) 1.4 % 0-5 [facility] Work Phone: Glucose [Mass/Vol] 107 mg/dL 74-106 [facility] Work Phone: [phone] Comment on above: Fasting Glucose resu lt from 100 to 125 mg/dL suggests IMPAIRED HOMEOSTASIS per A.D.A. criteria. Neutrophils (Bld) [#/Vol] 5.7 10*3/uL 2.0-7.7 [facility] Work Phone: Neutrophils/100 WBC (Bld) 72.4 % 47-70 [facility] Work Phone: Potassium [Moles/Vol] 3.7 mmol/L 3.5-5.1 [facility]: Sodium [Moles/Vol] 141 mmol/L 136-145 [facility] Work Phone: WBC (Bld) [#/Vol] 7.9 10*3/uL 4.4-11.0 [facility] Work Phone: [phone] Blood erythrocytes count (nu mber/volume)on 12-21-2021 RBC (Bld) [#/Vol] 4.85 10*6/uL 4.6-6.2 [facility] Work Phone: Blood hemoglobin measurement (mass/volume)on 12-21-2021 Hemoglobin (Bld) [Mass/Vol] 14.5 g/dL 13.0-16.5 [facility] Work Phone: [phone] Blood lymphocytes/100 leukoc yteson 12-21-2021 Lymphocytes/100 WBC (Bld) 15.5 % 19-41 [facility] Work Phone: Blood monocytes/100 leukocyt eson 12-21-2021 Monocytes/100 WBC (Bld) 9.9 % 0-10 [facility] Work Phone: Blood platelet mean volumeon 12-21-2021 Platelet mean volume (Bld) [Entitic vol] 10.2 fL 6.2-12.0 [facility] Work Phone: Determination of erythrocyte mean corpuscular volume (MCV)on 12-21-2021 MCV (RBC) [Entitic vol] 92.0 fL 80-94 [facility] Work Phone: Hematocrit Auto (Bld) [Volum e fraction]on 12-21-2021 Hematocrit (Bld) [Volume fraction] 44.6 % 40-54 [facility] Work Phone: INR in Blood by Coagulation assayon 12-21-2021 INR Coag (Bld) [Relative time] 2.3 {INR} [facility] Work Phone: Laboratory - Chemistry and C hemistry - challengeon 12-21-2021 CO2 [Moles/Vol] 29.0 mmol/L 21.0-32.0 [facility] Work Phone: Urea nitrogen/Creatinine [Mass ratio] 21.8 mg/mg 10-20 [facility] Work Phone: Laboratory - Coagulationon 1 aPTT Coag (Bld) [Time] 36.6 s 24.1-36.2 [facility] Work Phone: PT Coag (PPP) [Time] 24.7 s 11.7-14.9 [facility] Work Phone: Laboratory - Hematology and Cell countson 12-21-2021 Erythrocyte distribution width (RBC) [Entitic vol] 42.2 fL 35.1-43.9 [facility] Work Phone: Erythrocyte distribution width (RBC) [Ratio] 12.5 % 11.6-14.6 [facility] Work Phone: Immature granulocytes/100 WBC (Bld) 0.400 % 0.0-0.9 [facility] Work Phone: Comment on above: IG% - Immature Granu locytes (promyelocytes, myelocytes and metamyelocytes) > 1% indicates that a LEFT SHIFT is Present. MCH (RBC) [Entitic mass] 29.9 pg 27.0-32.0 [facility] Work Phone: Nucleated RBC/100 WBC (Bld) [Ratio] 0 % 0-5 [facility] Work Phone: MCHC Auto (RBC) [Mass/Vol]on 12-21-2021 MCHC (RBC) [Mass/Vol] 32.5 g/dL 32-36 [facility] Work Phone: No Panel Informationon 12-21 Estimated Creatinine Clearance Calc 66.90 ml/min [facility] Work Phone: Estimated GFR (MDRD) Amer 107 mL/min >60 [facility] Work Phone: Comment on above: GFR Calc Estimated GFR (MDRD) Non-Af Amer 88 mL/min >60 [facility] Work Phone: Comment on above: Non- GFR Calc Troponin I High Sensitivity 13 pg/mL 3.0-78.0 [facility] Work Phone: Comment on above: Please Note: New Hiwot t Units and Gender Specific Reference Ranges. For more information see Policy Stat Procedure [facility] High Sensitivity Troponin (TNIH) and attachments. Platelets bldon 12-21-2021 Platelets (Bld) [#/Vol] 241 10*3/uL 150-450 [facility] Work Phone: Serum or plasma calcium alvaro urement (mass/volume)on 12-21-2021 Calcium [Mass/Vol] 9.2 mg/dL 8.5-10.1 [facility] Work Phone: Serum or plasma creatinine m easurement (mass/volume)on 12-21-2021 Creatinine [Mass/Vol] 0.87 mg/dL 0.70-1.30 [facility] Work Phone: Comment on above: The validity of the calculated GFR & GFRAA in patients over 70 years has not been determined. Clinical correlation is essential. Serum or plasma urea nitroge n measurement (mass/volume)on 12-21-2021 Urea nitrogen [Mass/Vol] 19 mg/dL 10-07 [facility] Work Phone: Thin prep Papanicolaou smear with manual screeningon 12-21-2021 Thin prep Papanicolaou smear with manual screening 6 08-04 [facility] Work Phone: CBC panel Auto (Bld)on 07-08 Erythrocyte distribution width (RBC) [Ratio] 13.1 % 11.5 - 15.0 % [facility] Hematocrit (Bld) [Volume fraction] 49.5 % 39.0 - 51.0 % [facility] Hemoglobin (Bld) [Mass/Vol] 15.9 g/dL 13.0 - 17.0 g/dL [facility] MCH (RBC) [Entitic mass] 29.6 pg 26.0 - 34.0 pg [facility] MCHC (RBC) [Mass/Vol] 32.1 g/dL 30.5 - 36.0 g/dL [facility] MCV (RBC) [Entitic vol] 92.2 fL 80.0 - 100.0 fL [facility] Nucleated RBC (Bld) [#/Vol] 10*3/uL <0.01 k/uL [facility] Platelet mean volume (Bld) [Entitic vol] 10.7 fL 9.0 - 12.7 fL [facility] Platelets (Bld) [#/Vol] 235 10*3/uL 150 - 400 k/uL [facility] RBC (Bld) [#/Vol] 5.37 10*6/uL 4.20 - 6.00 m/uL [facility] WBC (Bld) [#/Vol] 10.33 10*3/uL 3.70 - 11.00 k/uL [facility] XR Lumbar spine 3 Viewson IMPRESSION: 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 Port Traffic Manager: EDUAR Transcribe Date/Time: Mar 13 2020 8:34A Dictated by : GABRIELLE BENTLEY MD This examination was interpreted and the report reviewed and electronically signed by: GABRIELLE BENTLEY MD on Mar 13 2020 8:35AM EST DIVISION OF RADIOLOGY * * *Final [...] spine are presented. FINDINGS: There are five gjx-uai-wmrxdcc lumbar vertebrae. No fracture or subluxations are noted. L5-S1 disc space narrowing is demonstrated. There is significant osteophyte formation. Kissing spine seen on lateral view. DIVISION OF RADIOLOGY Provider, [facility] - 03/13/2020 * * *Final Report* [...] spine are presented. FINDINGS: There are five ooy-kbj-stoprot lumbar vertebrae. No fracture or subluxations are noted. L5-S1 disc space narrowing is demonstrated. There is significant osteophyte formation. Kissing spine seen on lateral view. 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 Port Traffic Manager: [facility] Transcribe Date/Time: Mar 13 2020 8:34A Dictated by : GABRIELLE BENTLEY MD This examination was interpreted and the report reviewed and electronically signed by: GABRIELLE BENTELY MD on Mar 13 2020 8:35AM EST [facility] XR Lumbar spine 3 ViewsOrder ed By: Ccf Provider on 03-13-2020 [facility] XR Lumbar spine 3 Viewson Radiology Study observation (narrative) [facility] PROGRESSon 06-09-2017 PROGRESS HNO ID: [id number] Author: Vesta Marin PSR Service: (none) Author Type: (none) Type: Progress Notes Filed: 06/09/2017 4:13 PM Note Text: Spoke with the patient and scheduled his Corotid Doppler on June 24, 2017 at 9:00 am Normal [facility] CNOVon 06-02-2017 CNOV Office Visit (AGCARDWST) -------[facility] ([id number]) 1935 [facility]/02/17 9:00 AM DARRELL OLIVEIRA [...] - METBeta jazmin for ASHD with prior RI or prior LVEFANDlt;40 (NQF 0070) - N/ABeta [...] weeks.He will be getting labs from the [facility] in the near future and I've askedfor a copy.INR has been within range. He is due today.I will see him in 8 months or as needed. If there is increased chest pain orrecurrent syncope, he has been advised to contact me.Written and verbal health teaching given to patient, patient verbalizesunderstanding and agrees with treatment plan.This note was generated using [employer] voice recognition system, and there may besome [...] no significantchange.Electronic ally Signed:Darrell Oliveira, [facility] 2017 9:15 [facility]: Carmen Vasquez MD 06/02/2017 9:21 [...] 24, 2017 at9:00 amReferring Provider: DARRELL OLIVEIRA [[id number]]Allergies As of Date: 06/02/2017(No Known Allergies)Date Reviewed: 06/02/2017Reviewed by: Russell Breaux) Anabella - Fully AssessedReason for Visit: Recheck [92]Primary Visit Diagnosis:ASHD (arteriosclerotic heart disease) [I25.10] Other Visit Diagnosis:PAF (paroxysmal atrial fibrillation) ([facility]) [I48.0]Order(s):ECG B/O W INTERP (MED OFFICE) [ECG06] Order #: [id number] Fosinopril Sodium 40 mg tabletTake 1/2 tablet [...] the following areas and commit to making residential changes. EAT A WHOLE FOOD, PLANT BASED [...] on file. Cosign accepted by STAS MORA MD[[id number]] on 09/30/2016 2:01 PM Fosinopril Sodium 40 [...] on file.Follow-up and Disposition History RecordedEncounter Number: [id number] Status:Closed by DARRELL OLIVEIRA MD on 06/02/17 [facility] PROGRESSon 06-02-2017 PROGRESS HNO ID: [id number] thor: Darrell Stahl: (none)Author Type: PhysicianType: Progress NotesFiled: 06/02/2017 9:31 AMNote Text:PERTINENT CARDIAC HISTORYASHD - PCI LAD 2003HTNHLCarotid diseaseSyncopePAFADHERENCE TO GUIDELINESACE-I or ARB for HF with prior LVEF<40 (NQF 0081) - N/AASA or Plavix for ASHD (NQF 0067) - METBeta jazmin for ASHD with prior RI or prior LVEF<40 (NQF 0070) - N/ABeta [...] weeks.He will be getting labs from the [facility] in the near future and I'veasked for a copy.INR has been within range. He is due today.I will see him in 8 months or as needed. If there is increased chest painor recurrent syncope, he has been advised to contact me.Written and verbal health teaching given to patient, patient verbalizesunderstanding and agrees with treatment plan.This note was generated using [employer] voice recognition system, and theremay be some [...] is nosignificant change.Electronically Signed:Darrell Oliveira [facility] 2017 9:15 [facility]: Stas Mora MD [facility] OBSOLETEon 03-02-2017 OBSOLETE Refill (AGCARDWST) -------ROBY FLORES ([id number]) 1935 MDate Time Provider Rrswhgjgrt66/11/17 DARRELL OLIVEIRA AGCARDWST During your visit today, [...] FOR* 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] INVALID 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 Stas Mora MD Work Phone: 3(222)009-775739 [place] [address] 09-06-2024 14:15-0400 Body temperature 98 [degF] Dr. Stas Mora MD Work Phone: 0(915)930-530255 [place] [address] 09-06-2024 14:15-0400 Diastolic blood pressure 88 mm[Hg] Dr. Stas Mora MD Work Phone: 9(720)467-800839 [place] [address] 09-06-2024 14:15-0400 Heart rate 78 /min Dr. Stas Mora MD Work Phone: 4(793)784-533239 [place] [address] 09-06-2024 14:15-0400 Respiratory rate 18 /min Dr. Stas Mora MD Work Phone: 5(470)690-363439 [place] [address] 09-06-2024 14:15-0400 SaO2% (BldA) [Mass fraction] 97 % Dr. Stas Mora MD Work Phone: 5(326)874-365639 [place] [address] 09-06-2024 14:15-0400 Systolic blood pressure 137 mm[Hg] Dr. Stas Mora MD Work Phone: 1(011)020-855639 [place] [address] 09-04-2024 12:05-0400 Inhaled oxygen flow rate 2 L/min Dr. Stas Mora MD Work Phone: 7(281)968-890355 [place] [address] 09-01-2024 11:52-0400 Body height 182.[address] Stas Mora MD Work Phone: 7(699)545-942955 [place] [address] 09-01-2024 11:52-0400 Body mass index (BMI) [Ratio] 21.6 kg/m2 Dr. Stas Mora MD Work Phone: 8(515)909-316455 [place] [address] 09-01-2024 11:52-0400 Body weight 72.[address] Stas Mora MD Work Phone: 9(217)587-957355 [place] [address] 09-01-2024 11:00-0400 Diastolic blood pressure 79 mm[Hg] Dr. Stas Mora MD Work Phone: 3(667)735-129555 [place] [address] 09-01-2024 11:00-0400 Heart rate 70 /min Dr. Stas Mora MD Work Phone: 6(418)283-103355 [place] [address] 09-01-2024 11:00-0400 Respiratory rate 18 /min Dr. Stas Mora MD Work Phone: 0(349)657-581455 [place] [address] 09-01-2024 11:00-0400 SaO2% (BldA) [Mass fraction] 98 % Dr. Stas Mora MD Work Phone: 5(068)824-667355 [place] [address] 09-01-2024 11:00-0400 Systolic blood pressure 180 mm[Hg] Dr. Stas Mora MD Work Phone: 0(164)233-065755 [place] [address] 09-01-2024 09:52-0400 Body temperature 98.9 [degF] Dr. Stas Mora MD Work Phone: 1(717)835-966255 [place] [address] 09-01-2024 07:31-0400 Body height 182.[address] Stas Mora MD Work Phone: 5(526)839-452055 [place] [address] 09-01-2024 07:31-0400 Body mass index (BMI) [Ratio] 23.4 kg/m2 Dr. Stas Mora MD Work Phone: 8(081)352-875355 [place] [address] 09-01-2024 07:31-0400 Body weight 78.[address] Stas Mora MD Work Phone: 1(291)465-086055 [place] [address] 08-31-2024 11:05-0400 Body mass index (BMI) [Ratio] 22.35 kg/m2 Luciana Cisneros MD Work Phone: [facility] 08-31-2024 11:05-0400 Body weight 73.94 kg Luciana Cisneros MD Work Phone: [facility] 08-31-2024 11:05-0400 Diastolic blood pressure 74 mm[Hg] Luciana Cisneros MD Work Phone: [facility] 08-31-2024 11:05-0400 Heart rate 74 /min Luciana Cisneros MD Work Phone: [facility] 08-31-2024 11:05-0400 Respiratory rate 12 /min Luciana Cisneros MD Work Phone: [facility] 08-31-2024 11:05-0400 SaO2% (BldA) [Mass fraction] 98 % Luciana Cisneros MD Work Phone: [facility] 08-31-2024 11:05-0400 Systolic blood pressure 124 mm[Hg] Luciana Cisneros MD Work Phone: [facility] 07-28-2024 11:12-0400 Diastolic blood pressure 78 mm[Hg] Stas Mora MD Work Phone: [facility] 07-28-2024 11:12-0400 Systolic blood pressure 136 mm[Hg] Stas Mora MD Work Phone: [facility] 07-28-2024 11:10-0400 Body mass index (BMI) [Ratio] 22.4 kg/m2 Stas Mora MD Work Phone: [facility] 07-28-2024 11:10-0400 Body weight 74.1 kg Stas Mora MD Work Phone: [facility] 07-28-2024 11:10-0400 Heart rate 56 /min Stas Mora MD Work Phone: [facility] 07-28-2024 11:10-0400 Respiratory rate 16 /min Stas Mora MD Work Phone: [facility] 06-01-2024 14:52-0400 Body height 181.9 cm Luciana Cisneros MD Work Phone: [facility] 06-01-2024 14:52-0400 Body mass index (BMI) [Ratio] 22.33 kg/m2 Luciana Cisneros MD Work Phone: [facility] 06-01-2024 14:52-0400 Body weight 73.85 kg Luciana Cisneros MD Work Phone: [facility] 06-01-2024 14:52-0400 Diastolic blood pressure 60 mm[Hg] Luciana Cisneros MD Work Phone: [facility] 06-01-2024 14:52-0400 Heart rate 46 /min Luciana Cisneros MD Work Phone: [facility] 06-01-2024 14:52-0400 SaO2% (BldA) [Mass fraction] 98 % Luciana Cisneros MD Work Phone: [facility] 06-01-2024 14:52-0400 Systolic blood pressure 132 mm[Hg] Luciana Cisneros MD Work Phone: [facility] 05-26-2024 09:18-0500 Diastolic blood pressure 82 mm[Hg] Stas Mora MD Work Phone: [facility] 05-26-2024 09:18-0500 Systolic blood pressure 144 mm[Hg] Stas Mora MD Work Phone: [facility] 05-26-2024 09:06-0500 Body mass index (BMI) [Ratio] 22.19 kg/m2 Stas Mora MD Work Phone: [facility] 05-26-2024 09:06-0500 Body weight 73.5 kg Stas Mora MD Work Phone: [facility] 05-26-2024 09:06-0500 Heart rate 56 /min Stas Mora MD Work Phone: [facility] 05-26-2024 09:06-0500 Respiratory rate 18 /min Stas Mora MD Work Phone: [facility] 04-27-2024 09:34-0500 Body height 182 cm Luciana Cisneros MD Work Phone: [facility] 04-27-2024 09:34-0500 Body mass index (BMI) [Ratio] 22.51 kg/m2 Luciana Cisneros MD Work Phone: [facility] 04-27-2024 09:34-0500 Body weight 74.57 kg Luciana Cisneros MD Work Phone: [facility] 04-27-2024 09:34-0500 Diastolic blood pressure 62 mm[Hg] Luciana Cisneros MD Work Phone: [facility] 04-27-2024 09:34-0500 Heart rate 60 /min Luciana Cisneros MD Work Phone: [facility] 04-27-2024 09:34-0500 SaO2% (BldA) [Mass fraction] 98 % Luciana Cisneros MD Work Phone: [facility] 04-27-2024 09:34-0500 Systolic blood pressure 110 mm[Hg] Luciana Cisneros MD Work Phone: [facility] 11-26-2023 10:33-0400 Diastolic blood pressure 80 mm[Hg] Stas Mora MD Work Phone: [facility] 11-26-2023 10:33-0400 Systolic blood pressure 144 mm[Hg] Stas Mora MD Work Phone: [facility] 11-26-2023 10:22-0400 Body mass index (BMI) [Ratio] 21.95 kg/m2 Stas Mora MD Work Phone: [facility] 11-26-2023 10:22-0400 Body weight 71.4 kg Stas Mora MD Work Phone: [facility] 11-26-2023 10:22-0400 Heart rate 60 /min Stas Mora MD Work Phone: [facility] 11-26-2023 10:22-0400 Respiratory rate 18 /min Stas Mora MD Work Phone: [facility] 09-15-2023 08:38-0400 Body mass index (BMI) [Ratio] 24.52 kg/m2 Stas Mora MD Work Phone: [facility] 09-15-2023 08:38-0400 Body weight 79.74 kg Stas Mora MD Work Phone: [facility] 09-15-2023 08:38-0400 Diastolic blood pressure 84 mm[Hg] Stas Mora MD Work Phone: [facility] 09-15-2023 08:38-0400 Heart rate 76 /min Stas Mora MD Work Phone: [facility] 09-15-2023 08:38-0400 Respiratory rate 18 /min Stas Mora MD Work Phone: [facility] 09-15-2023 08:38-0400 Systolic blood pressure 138 mm[Hg] Stas Mora MD Work Phone: [facility] 08-14-2023 09:57-0400 Body mass index (BMI) [Ratio] 22.59 kg/m2 Stas Mora MD Work Phone: [facility] 08-14-2023 09:57-0400 Body weight 73.48 kg Stas Mora MD Work Phone: [facility] 08-14-2023 09:57-0400 Diastolic blood pressure 80 mm[Hg] Stas Mora MD Work Phone: [facility] 08-14-2023 09:57-0400 Heart rate 64 /min Stas Mora MD Work Phone: [facility] 08-14-2023 09:57-0400 Respiratory rate 14 /min Stas Mora MD Work Phone: [facility] 08-14-2023 09:57-0400 Systolic blood pressure 140 mm[Hg] Stas Mora MD Work Phone: [facility] 06-01-2023 15:08-0400 Body weight 75.75 kg Stas Mora MD Work Phone: [facility] 06-01-2023 15:08-0400 Diastolic blood pressure 90 mm[Hg] Stas Mora MD Work Phone: [facility] 06-01-2023 15:08-0400 Heart rate 82 /min Stas Mora MD Work Phone: [facility] 06-01-2023 15:08-0400 Respiratory rate 16 /min Stas Mora MD Work Phone: [facility] 06-01-2023 15:08-0400 SaO2% (BldA) [Mass fraction] 100 % Stas Mora MD Work Phone: [facility] 06-01-2023 15:08-0400 Systolic blood pressure 140 mm[Hg] Stas Mora MD Work Phone: [facility] 02-16-2023 13:57-0500 Diastolic blood pressure 62 mm[Hg] Stas Mora MD Work Phone: [facility] 02-16-2023 13:57-0500 Heart rate 62 /min Stas Mora MD Work Phone: [facility] 02-16-2023 13:57-0500 Respiratory rate 16 /min Stas Mora MD Work Phone: [facility] 02-16-2023 13:57-0500 Systolic blood pressure 110 mm[Hg] Stas Mora MD Work Phone: [facility] 02-10-2023 16:59-0500 Diastolic blood pressure 68 mm[Hg] [facility] 02-10-2023 16:59-0500 Heart rate 79 /min [facility] 02-10-2023 16:59-0500 Respiratory rate 12 /min [facility] 02-10-2023 16:59-0500 SaO2% (BldA) [Mass fraction] 98 % [facility] 02-10-2023 16:59-0500 Systolic blood pressure 153 mm[Hg] [facility] 02-10-2023 14:37-0500 Body mass index (BMI) [Ratio] 22.1 kg/m2 [facility] 02-10-2023 14:37-0500 Body weight 74.3 kg [facility] 02-10-2023 14:32-0500 Body height 182.88 cm [facility] 02-10-2023 14:32-0500 Body temperature 98 [degF] [facility] 11-17-2022 17:22-0400 Diastolic Blood Pressure Non-Invasive 68 1 STERLING FROM[employer]T DO [facility] 11-17-2022 17:22-0400 Heart rate 76 /min STERLING [employer] DO [facility] 11-17-2022 17:22-0400 Respiratory rate 18 /min STERLING [employer] DO [facility] 11-17-2022 17:22-0400 Systolic Blood Pressure Non-Invasive 126 1 STERLING [employer] DO [facility] 11-17-2022 15:23-0400 Body height 185.4 cm STERLING [employer] DO [facility] 11-17-2022 15:23-0400 Body temperature 97.88 [degF] STER[employer]ING [employer] DO [facility] 11-17-2022 15:23-0400 Body weight 79.6 kg STERLING [employer] DO [facility] 11-17-2022 15:23-0400 Diastolic Blood Pressure Non-Invasive 70 1 STERLING [employer] DO [facility] 11-17-2022 15:23-0400 Heart rate 89 /min STERLING [employer] DO [facility] 11-17-2022 15:23-0400 Respiratory rate 18 /min STERLING [employer] DO [facility] 11-17-2022 15:23-0400 Systolic Blood Pressure Non-Invasive 134 1 STERLING LYNCH DO [facility] 08-26-2022 13:12-0400 Body height 180.3 cm Stas Mroa MD Work Phone: [facility] 08-26-2022 13:12-0400 Body weight 78.74 kg Stas Mora MD Work Phone: [facility] 08-26-2022 13:12-0400 Diastolic blood pressure 74 mm[Hg] Stas Mora MD Work Phone: [facility] 08-26-2022 13:12-0400 Heart rate 66 /min Stas Mora MD Work Phone: [facility] 08-26-2022 13:12-0400 Respiratory rate 16 /min Stas Mora MD Work Phone: [facility] 08-26-2022 13:12-0400 Systolic blood pressure 122 mm[Hg] Stas Mora MD Work Phone: [facility] 12-26-2021 11:22-0400 Body weight 78.56 kg Stas Mora MD Work Phone: [facility] 12-26-2021 11:22-0400 Diastolic blood pressure 80 mm[Hg] Stas Mora MD Work Phone: [facility] 12-26-2021 11:22-0400 Heart rate 58 /min Stas Mora MD Work Phone: [facility] 12-26-2021 11:22-0400 Respiratory rate 16 /min Stas Mora MD Work Phone: [facility] 12-26-2021 11:22-0400 Systolic blood pressure 142 mm[Hg] Stas Mora MD Work Phone: [facility] 12-22-2021 11:13-0400 Body temperature 97.6 [degF] Dr. Stas Mora Work Phone: [facility] Work Phone: 12-22-2021 11:13-0400 Diastolic blood pressure 58 mm[Hg] Dr. Stas Mora Work Phone: [facility] Work Phone: 12-22-2021 11:13-0400 Heart rate 63 /min Dr. Stas Mora Work Phone: [facility] Work Phone: 12-22-2021 11:13-0400 Respiratory rate 16 /min Dr. Stas Mora Work Phone: [facility] Work Phone: 12-22-2021 11:13-0400 SaO2% (BldA) [Mass fraction] 96 % Dr. Stas Mora Work Phone: [facility] Work Phone: 12-22-2021 11:13-0400 Systolic blood pressure 142 mm[Hg] Dr. Stas Mora Work Phone: [facility] Work Phone: 12-21-2021 20:06-0400 Body height 182.[address] Stas Mora Work Phone: [facility] Work Phone: 12-21-2021 20:06-0400 Body mass index (BMI) [Ratio] 22.6 kg/m2 Dr. Stas Mora Work Phone: [facility] Work Phone: 12-21-2021 20:06-0400 Body weight 75.[address] Stas Mora Work Phone: [facility] Work Phone: 12-21-2021 19:15-0400 Diastolic blood pressure 81 mm[Hg] [facility] Work Phone: 12-21-2021 19:15-0400 Heart rate 70 /min [facility] Work Phone: 12-21-2021 19:15-0400 Respiratory rate 18 /min [facility] Work Phone: 12-21-2021 19:15-0400 SaO2% (BldA) [Mass fraction] 96 % [facility] Work Phone: 12-21-2021 19:15-0400 Systolic blood pressure 171 mm[Hg] [facility] Work Phone: 12-21-2021 19:02-0400 Body temperature 97.6 [degF] [facility] Work Phone: 12-21-2021 18:17-0400 Body height 182.88 cm [facility] Work Phone: 12-21-2021 18:17-0400 Body mass index (BMI) [Ratio] 24.2 kg/m2 [facility] Work Phone: 12-21-2021 18:17-0400 Body weight 80.9 kg [facility] Work Phone: 09-05-2021 11:21-0400 Body height 182.9 cm Stas Mora MD Work Phone: [facility] 09-05-2021 11:21-0400 Body weight 80.2 kg Stas Mora MD Work Phone: [facility] 09-05-2021 11:21-0400 Diastolic blood pressure 70 mm[Hg] Stas Mora MD Work Phone: [facility] 09-05-2021 11:21-0400 Heart rate 62 /min Stas Mora MD Work Phone: [facility] 09-05-2021 11:21-0400 Respiratory rate 16 /min Stas Mora MD Work Phone: [facility] 09-05-2021 11:21-0400 Systolic blood pressure 136 mm[Hg] Stas Mora MD Work Phone: [facility] 07-08-2021 10:41-0400 Body weight 83.55 kg Stas Mora MD Work Phone: [facility] 07-08-2021 10:41-0400 Diastolic blood pressure 78 mm[Hg] Stas Mora MD Work Phone: [facility] 07-08-2021 10:41-0400 Heart rate 60 /min Stas Mora MD Work Phone: [facility] 07-08-2021 10:41-0400 Respiratory rate 16 /min Stas Mora MD Work Phone: [facility] 07-08-2021 10:41-0400 Systolic blood pressure 120 mm[Hg] Stas Mora MD Work Phone: [facility] Encounters Encounter Date Encounter Type Care Provider Facility Start: 01-25-2025 ambulatory Shayy GAMA Fa cility:[facility] Start: 01-23-2025 ambulatory Stas Mora Facilit y:[facility] Start: 01-10-2025 ambulatory Stas Mora Facilit y:[facility] Start: 12-28-2024 End: 12-28-2024 ambulatory Halina Carmona INSURANCE REPRESENTATIVE Facility:[facility] Start: 12-22-2024 End: 12-22-2024 ambulatory Cj Costa PA Facility:[facility] Start: 12-21-2024 Registered Referred Shayy Berrios Start: 12-21-2024 End: 12-21-2024 ambulatory Stas Mora Facility:[facility] Start: 12-14-2024 Registered Referred Shayy Berrios Start: 12-14-2024 End: 12-14-2024 ambulatory Stas Mora Facility:[facility] Start: 11-30-2024 Registered Referred Shayy Berrios Start: 11-29-2024 End: 11-30-[address] Stas Mora MD Work Phone: [facility] Start: 11-29-2024 End: 11-29-[address] Shayy Curtis MD -[facility] Work Phone: Start: 11-25-2024 [facility] Start: 11-24-2024 End: 11-25-[address] Stas Mora MD Work Phone: [facility] Start: 11-24-2024 End: 11-24-2024 Patient encounter procedure Halina HO -[facility] Work Phone: Start: 11-23-2024 ambulatory Efewongbe Oleghe OLS Fa cility:[facility] Start: 11-23-2024 Registered Referred [facility] Start: 11-02-2024 ambulatory Efewongirlanda Salazarghe OLS Fa cility:[facility] Start: 11-02-2024 Registered Referred Shayy [facility] Start: 10-31-2024 ambulatory Efewongbe Martinghe OLS Fa cility:[facility] Start: 10-31-2024 Registered Referred Shayy [facility] Start: 10-25-2024 End: 10-25-[address] Stas Mora MD Work Phone: [facility] Start: 10-25-2024 End: 10-25-[address] [facility] Start: 10-20-2024 End: 10-20-[address] Stas Mora MD Work Phone: [facility] Start: 10-20-2024 End: 10-20-2024 [facility] Start: 10-06-2024 ambulatory Efewongbe Gabee OLS Fa cility:[facility] Start: 10-06-2024 Registered Referred Shayy [facility] Start: 10-05-2024 ambulatory Shayy GAMA Fa cility:[facility] Start: 10-05-2024 Registered Referred Shayy [facility] Start: 09-30-2024 End: 09-30-[address] Stas Mora MD Work Phone: [facility] Start: 09-30-2024 End: 09-30-2024 Patient encounter procedure Halina Carmona INSURANCE REPRESENTATIVE-C -[facility] Work Phone: Start: 09-29-2024 ambulatory Efbaldomero GAMA Fa cility:[facility] Start: 09-29-2024 Registered Referred Shayy Cardozo Start: 09-28-2024 End: 09-28-[address] Sats Mora MD Work Phone: [facility] Start: 09-28-2024 End: 09-28-2024 Departed Referred Shayy Cardozo Start: 09-28-2024 Registered Referred Shayy Cardozo Start: 09-28-2024 End: 09-28-2024 ambulatory Shayy GAMA Facility:[facility] Start: 09-26-2024 End: 09-26-[address] Stas Mora MD Work Phone: [facility] Start: 09-26-2024 End: 09-26-2024 Departed Referred Shayy Cardozo Start: 09-26-2024 Registered Referred Shayy Cardozo Start: 09-26-2024 End: 09-26-2024 ambulatory Efbaldomero GAMA Facility:[facility] Start: 09-23-2024 ambulatory Efbaldomero GAMA Fa cility:[facility] Start: 09-23-2024 Registered Referred Shayy Cardozo Start: 09-21-2024 End: 09-22-2024 Telephone encounter Stas Mora MD Work Phone: [facility] Start: 09-21-2024 ambulatory Efbaldomero Bernale OLS Fa cility:[facility] Start: 09-21-2024 Registered Referred Shayy Cardozo Start: 09-20-2024 End: 09-20-[address] Stas Mora MD Work Phone: [facility] Start: 09-20-2024 End: 09-20-[address] Shayy Curtis MD -[facility] Work Phone: Start: 09-19-2024 ambulatory Efewongbe Gabee OLS Fa cility:[facility] Start: 09-19-2024 Registered Referred Shayy Cardozo Start: 09-15-2024 ambulatory Efewongbe Martintomye OLS Fa cility:[facility] Start: 09-15-2024 Registered Referred Shayy Cardozo Start: 09-14-2024 ambulatory Efewongbe Gabee OLS Fa cility:[facility] Start: 09-14-2024 Registered Referred Shayy Cardozo Start: 09-12-2024 ambulatory Efewongirlanda Bernale OLS Fa cility:[facility] Start: 09-12-2024 Registered Referred Shayy Cardozo Start: 09-08-2024 End: 09-08-2024 Patient encounter procedure Halina HO -[facility] Work Phone: Start: 09-08-2024 End: 09-08-[address] Stas Mora MD Work Phone: [facility] Start: 09-08-2024 Registered Referred Shayy Cardozo Start: 09-07-2024 End: 09-07-2024 [facility] Start: 09-07-2024 End: 09-07-[address] Stas Mora MD Work Phone: -[facility] Start: 09-07-2024 Registered Referred Shayy Curtis MD -[facility] Start: 09-06-2024 Non-patient / Non-visit Dr. Navid Dominguez MD -[facility] Work Phone: Start: 09-05-2024 Non-patient / Non-visit Dr. Navid Dominguez MD [facility] Work Phone: Start: 09-04-2024 Non-patient / Non-visit Dr. Jia Wells MD [facility] Work Phone: Start: 09-03-2024 Non-patient / [facility]: Start: 09-02-2024 Non-patient / Non-visit Dr. Jia Wells MD [facility] Work Phone: Start: 09-02-2024 ambulatory Kathy Jimenez Facility :[facility] Start: 09-02-2024 End: 09-06-2024 Evaluation and management of inpatient Dr. Navid Dominguez MD -[facility] Work Phone: Start: 09-01-2024 End: 09-01-2024 Telephone encounter [facility] Work Phone: [facility] Comment on above: Medication Problem ( Cost) Start: 09-01-2024 ambulatory Kathy Jimenez Facility :[facility] Start: 09-01-2024 Evaluation and management of inpatient Dr. Kathy Wells MD -[facility] Work Phone: Start: 09-01-2024 Non-patient / Non-visit [facility] Work Phone: Start: 09-01-[address] Stas Mora MD Work Phone: [facility] Work Phone: Start: 08-31-2024 End: 08-31-2024 Telephone encounter Coretta Jalloh [facility] Ambulatory Telemanagement Comment on above: Anticoagulation Tele phone Fu (Home INR result ) Start: 08-31-2024 End: 08-31-2024 ambulatory STAS Trejo [facility] Facility:[facility] Start: 08-31-2024 End: 08-31-2024 Office outpatient visit 25 minutes Luciana Cisneros MD Work Phone: Geriatrics Comment on above: Moderate dementia wi thout behavioral disturbance, psychotic disturbance, mood disturbance, or anxiety, unspecified dementia type (HCC) (Primary Dx); Hallucinations; Screening for depression; Encounter for screening examination for other mental health and behavioral disorders Start: 08-31-2024 End: 08-31-2024 ambulatory LUCIANA CISNEROS Facility:[facility] Start: 08-03-2024 End: 08-03-2024 Telephone encounter Coretta Jalloh [facility] Ambulatory Telemanagement Comment on above: Anticoagulation Tele phone Fu (Lab INR result) Start: 08-03-2024 End: 08-03-2024 ambulatory STAS Trejo [facility] Facility:[facility] Start: 07-28-2024 End: 07-28-2024 Office outpatient visit 15 minutes Stas Mora MD Work Phone: [facility] Comment on above: Bursitis of right el bow, unspecified bursa (Primary Dx) Start: 07-28-2024 End: 07-28-2024 ambulatory [facility] Facility:[facility] Start: 07-06-2024 End: 07-06-2024 Telephone encounter Coretta Jalloh [facility] Ambulatory Telemanagement Comment on above: Anticoagulation Tele phone Fu (Lab INR result ) Start: 07-06-2024 End: 07-06-2024 ambulatory STAS Maay [facility] Facility:[facility] Start: 06-29-2024 End: 06-29-2024 Telephone encounter Coretta Jalloh [facility] Ambulatory Telemanagement Comment on above: Anticoagulation Tele phone Fu (Lab INR result ) Start: 06-29-2024 End: 06-29-2024 ambulatory STAS MORA Facility:[facility] Start: 06-01-2024 End: 06-01-2024 Office consultation new/estab patient 80 min Luciana Cisneros MD Work Phone: Geriatrics Comment on above: Mixed dementia (HCC) (Primary Dx); Vascular parkinsonism (HCC) Start: 06-01-2024 End: 06-01-2024 ambulatory LUCIANA CISNEROS Facility:[facility] Start: 06-01-2024 End: 08-01-2024 Follow-up encounter Luciana Cisneros MD Work Phone: Geriatrics Start: 05-26-2024 End: 05-26-2024 Telephone encounter Luciana Cisneros MD Work Phone: Geriatrics Comment on above: Appointment (Resched ule for geriatric f/u) Start: 05-26-2024 End: 05-26-2024 [facility] Start: 05-26-2024 End: 05-26-2024 Patient encounter procedure Stas Mora MD Work Phone: [facility] [place] Comment on above: Essential hypertensi on, benign (Primary Dx); Hyperlipidemia, unspecified hyperlipidemia type; Atherosclerosis 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, unspecified vessel or lesion type, unspecified whether [place] or transplanted heart; Paroxysmal atrial fibrillation (HCC); Edema of both lower legs; History of stroke with residual effects; Dementia, unspecified dementia severity, unspecified dementia type, unspecified whether behavioral, psychotic, or mood disturbance or anxiety (HCC) Start: 05-25-2024 End: 05-25-2024 Telephone encounter Paige Hickman [facility] Ambulatory Telemanagement Comment on above: Anticoagulation Tele phone Fu (Lab INR Result ) Start: 05-25-2024 End: 05-25-2024 ambulatory STAS MORA Facility:[facility] Start: 05-23-2024 ambulatory LUCIANA CISNEROS Facility :[id number] Start: 05-23-2024 End: 05-23-2024 Subsequent hospital visit by [facility] Work Phone: [facility] Comment on above: Cognitive impairment , mild, 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] Start: 04-28-2024 End: 04-29-2024 Telephone encounter Stas Mora MD Work Phone: [facility] [place] Comment on above: Results Start: 04-27-2024 End: 04-27-2024 Telephone encounter Coretta Jalloh [facility] Ambulatory Telemanagement Comment on above: Anticoagulation Tele phone Fu (Lab INR result ) Start: 04-27-2024 End: 04-27-2024 ambulatory [facility] Facility:[facility] Start: 04-27-2024 End: 04-27-2024 Assmt & care planning pt w/cognitive impairment Luciana Cisneros MD Work Phone: Geriatrics Comment on above: Dementia, unspecifie d dementia severity, unspecified dementia type, unspecified whether behavioral, psychotic, or mood disturbance or anxiety (HCC) (Primary Dx); Cognitive impairment; Cognitive impairment, mild, so stated; Shuffling gait; Ambulatory dysfunction; Balance disorder Start: 04-27-2024 End: 04-27-2024 [facility] Facility:[facility] Start: 04-25-2024 End: 04-25-2024 Telephone encounter Stas Mora MD Work Phone: [facility] [place] Comment on above: memory issues Start: 04-13-2024 End: 04-13-2024 [facility] Telemanagement Comment on above: Anticoagulation Tele phone Fu (Home INR result ) Start: 04-13-2024 End: 04-13-2024 ambulatory STAS MORA Facility:[facility] Start: 03-30-2024 End: 03-30-2024 Telephone encounter Coretta Jalloh [facility] Ambulatory Telemanagement Comment on above: Anticoagulation Tele phone Fu (Lab INR result ) Start: 03-30-2024 End: 03-30-2024 ambulatory STAS MORA Facility:[facility] Start: 03-17-2024 End: 03-17-2024 Telephone encounter Josy Gandhi [facility] Comment on above: Anticoagulation Tele phone Fu (Lab INR result ) Start: 03-17-2024 End: 03-17-2024 ambulatory STAS MORA Facility:[facility] Start: 03-03-2024 End: 03-03-2024 Telephone encounter Elise Paredes [facility] Ambulatory Telemanagement Comment on above: Anticoagulation Tele phone Fu (Lab INR result) Start: 03-03-2024 End: 03-03-2024 ambulatory [facility] Facility:[facility] Start: 02-10-2024 End: 02-10-2024 [facility]ulatory Telemanagement Comment on above: Anticoagulation Tele phone Fu (Lab INR result ) Start: 02-10-2024 End: 02-10-2024 ambulatory [facility] Facility:[facility] Start: 01-20-2024 End: 01-20-[address] [facility] Ambulatory Telemanagement Comment on above: Anticoagulation Tele phone Fu (Lab INR results ) Start: 01-04-2024 End: 01-04-2024 Telephone encounter Stas Mora MD Work Phone: [facility] Comment on above: Medication Request Start: 12-24-2023 End: 12-24-2023 Telephone encounter Elise Paredes [facility] Ambulatory Telemanagement Comment on above: Anticoagulation Tele phone Fu (Lab INR) Start: 12-10-2023 End: 12-10-2023 Telephone encounter Elise Paredes [facility] Ambulatory Telemanagement Comment on above: Anticoagulation Tele phone Fu (Lab INR) Start: 11-26-2023 End: 11-26-2023 Telephone encounter Elise Paredes [facility] Ambulatory Telemanagement Comment on above: Anticoagulation Tele phone Fu (Lab INR) Start: 11-26-2023 End: 11-26-2023 Patient encounter procedure Stas Mora MD Work Phone: [facility] [place] Comment on above: Essential hypertensi on, benign (Primary Dx); Hyperlipidemia, unspecified hyperlipidemia type; Edema of both lower legs; Paroxysmal atrial fibrillation (HCC); History of stroke with residual effects; 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, psychotic disturbance, mood disturbance, or anxiety (HCC); Urinary frequency; Abnormal CBC Start: 11-18-2023 End: 11-18-2023 Telephone encounter Coretta Jalloh [facility] Ambulatory Telemanagement Comment on above: Anticoagulation Tele phone Fu (Home INR) Start: 11-16-2023 End: 11-16-2023 Refill Stas Mora MD Work Phone: [facility] [place] Comment on above: Refill Request Start: 10-14-2023 Telephone encounter [facility] Ambulatory Telemanagement Comment on above: Anticoagulation Tele phone Fu (Home INR results ) Start: 09-16-2023 Telephone encounter Colleen Sommer [facility] Ambulatory Telemanagement Comment on above: Anticoagulation Tele phone Fu Start: 09-15-2023 End: 09-15-2023 Patient encounter procedure Stas Mora MD Work Phone: [facility] Comment on above: Edema of both lower legs (Primary Dx) Start: 09-14-2023 End: 09-14-2023 ambulatory Nurse Intm/Famp Triage [facility] Work Phone: Nurse Phone Triage Comment on above: Leg swelling Start: 09-02-2023 Telephone encounter [facility] Tele[facility] Comment on above: Anticoagulation Tele phone Fu (Lab INR results) Start: 08-26-2023 Telephone encounter [facility]elin [facility] Ambulatory Telemanagement Comment on above: Anticoagulation Tele phone Fu (Lab INR results ) Start: 08-19-2023 Telephone encounter [facility] Tele[facility] Comment on above: Anticoagulation Tele phone Fu (Lab INR) Start: 08-14-2023 End: 08-14-2023 Patient encounter procedure Stas Mora MD Work Phone: [facility] Comment on above: Moderate vascular de mentia without behavioral disturbance, psychotic disturbance, mood disturbance, or anxiety (HCC) (Primary Dx); Essential hypertension, benign; Paroxysmal atrial fibrillation (HCC) Start: 08-12-2023 Telephone encounter [facility] Comment on above: Anticoagulation Tele phone Fu (Home INR results ) Start: 08-06-2023 ambulatory PAYTON SHAMAR DO Facil ity:A Start: 08-05-2023 Telephone encounter [facility]ta[facility]aldo [facility] Comment on above: Anticoagulation Tele phone Fu (Home INR results ) Start: 07-29-2023 Telephone encounter Elena Lopez [facility] Comment on above: Anticoagulation Foll ow Up Start: 07-22-2023 Telephone encounter [facility] Comment on above: Anticoagulation Tele phone Fu (Lab INR results ) Start: 07-16-2023 Refill Elvis RASHID RN.CCU NURSE Work Phone: [facility] [place] Comment on above: Refill Request [...] Jerzy Easton MD Work Phone: [facility] [place] Comment on above: Anticoagulation Start: 06-11-2023 Telephone encounter Stas miranda MD Work Phone: [facility] [place] Comment on above: Anticoagulation Start: 06-08-2023 Telephone encounter Jenna Armenta tnof HOSPICE ADMINISTRATOR.CCU NURSE Work Phone: [facility] [place] Comment on above: Erroneous encounter- disregard Anticoagulation Start: 06-05-2023 Telephone encounter Jenna Armenta tnof HOSPICE ADMINISTRATOR.CCU NURSE Work Phone: [facility] [place] Comment on above: Results (Labs, Criti cleopatra ) Start: 06-04-2023 ambulatory Hortencia Winston RN NURSE O N CALL Comment on above: Results, Lab High Protime and INR Start: 06-04-2023 E-mail encounter fro m caregiver Jasmin Bell MD Work Phone: [facility] [place] Start: 06-04-2023 Telephone encounter Jenna Armenta nhof HOSPICE ADMINISTRATOR.CCU NURSE Work Phone: [facility] [place] Comment on above: Results; Orders (Lab s ) Start: 06-03-2023 Telephone encounter [facility] Comment on above: Anticoagulation Tele phone Fu (Lab INR results ) Start: 06-01-2023 End: 06-01-2023 Patient encounter procedure Stas Mora MD Work Phone: [facility] [place] Comment on above: Essential hypertensi on, benign (Primary Dx); Paroxysmal atrial fibrillation (HCC); Atherosclerosis 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, unspecified vessel or lesion type, unspecified whether [place] or transplanted heart; Hyperlipidemia, unspecified hyperlipidemia type; History of stroke with residual effects; Speech disturbance, unspecified type Start: 05-27-2023 Telephone encounter [facility] Comment on above: Anticoagulation Tele phone Fu (Lab INR results ) Start: 05-20-2023 Telephone encounter [facility]taubaldo Mayocy [facility] Tele[facility] Comment on above: Anticoagulation Tele phone Fu (Home INR results) Start: 05-13-2023 Telephone encounter Senia Phillips [facility] Ambulatory Telemanagement Comment on above: Anticoagulation Tele phone Fu (INR Lab Result) Start: 05-06-2023 Telephone encounter [facility]ta [facility] Comment on above: Anticoagulation Tele phone Fu (Lab INR results ) Start: 04-29-2023 Telephone encounter [facility]ta [facility] Comment on above: Anticoagulation Tele phone Fu (Home INR results ) Start: 02-20-2023 Telephone encounter Elise Paredes [facility] Comment on above: Anticoagulation Tele phone Fu (Lab INR) Start: 02-17-2023 Telephone encounter Stas miranda MD Work Phone: [facility] [place] Comment on above: Results Start: 02-17-2023 End: 02-17-2023 Subsequent hospital visit by physician Mri [facility] (I-Stat/1.5t) Work Phone: Radiology Comment on above: Cerebral infarction, unspecified mechanism (HCC) [I63.9] Start: 02-16-2023 End: 02-16-2023 Patient encounter procedure Stas Mora MD Work Phone: [facility] Comment on above: Cerebral infarction, unspecified mechanism (HCC) (Primary Dx); Generalized weakness; Speech disturbance, unspecified type; Hyperlipidemia, unspecified hyperlipidemia type; Essential hypertension, benign; Paroxysmal atrial fibrillation (HCC) Start: 02-13-2023 Telephone encounter Elise Paredes [facility]ulatory Telemanagement Comment on above: Anticoagulation Tele phone Fu (Lab INR) Start: 02-10-2023 End: 02-10-2023 Emergency department patient visit [facility] Work Phone: Start: 02-06-2023 Telephone encounter Senia Phillips RPh P harmacy Ambulatory Telemanagement Comment on above: Anticoagulation Tele phone Fu (INR Lab Result) Start: 01-19-2023 Telephone encounter [facility] Comment on above: Anticoagulation Tele phone Fu Start: 01-16-2023 Orders Only Stas newman MD Work Phone: [facility] Comment on above: 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 us e of anticoagulant (Primary Dx); [...] 11-17-2022 Emergency department patient visit [facility] Start: 11-07-2022 Telephone encounter Senia Cross RPh P [facility]acy [facility] Tele[facility] Comment on above: Anticoagulation Tele phone Fu (INR Lab Result) Start: 10-31-2022 Telephone encounter [facility]ia [facility] Comment on above: Anticoagulation Tele phone Fu Start: 10-24-2022 Telephone encounter Senia Phillips RPh P [facility] Tele[facility] Comment on above: Anticoagulation Tele phone Fu (INR Lab Result) Start: 10-17-2022 Telephone encounter Yoim Covarrubiaszman h [facility] Tele[facility] Comment on above: Anticoagulation Tele phone Fu (Lab INR Result/) urgent PT INR result Start: 09-26-2022 Telephone encounter Jeimy Duong [facility] Comment on above: Anticoagulation Tele phone Fu (Lab INR result) Start: 09-12-2022 Telephone encounter Jeimy Duong h [facility] Comment on above: Anticoagulation Tele phone Fu (Lab INR result) Start: 08-26-2022 End: 08-26-2022 Patient encounter procedure Stas Mora MD Work Phone: [facility] Comment on above: Encounter for Medica re [...] Result) Start: 07-04-2022 Telephone encounter Lety Gandara [facility] Comment on above: Anticoagulation Tele phone Fu (Lab INR result ) Start: 06-23-2022 Refill Elvis RASHID RN.[facility] Work Phone: [facility] Comment on above: Refill Request Start: 06-20-2022 Telephone encounter Senia Cross RPh P [facility] Tele[facility] Comment on above: Anticoagulation Tele phone Fu (INR Lab Result) Start: 06-06-2022 Telephone encounter Senia Cross RPh P [facility]acy [facility] Telemanagement Comment on above: Anticoagulation Tele phone Fu (INR Lab Result) Start: 05-30-2022 Telephone encounter Stas miranda MD Work Phone: [facility] [place] Comment on above: Opened In Error Start: 05-22-2022 Telephone encounter Jenna Armenta nhof HOSPICE ADMINISTRATORSamuelCCU NURSE Work Phone: [facility] [place] Comment on above: Results (X-ray hip) Start: 05-21-2022 End: 05-21-2022 Subsequent hospital visit by physician Xr [facility] [place] Work Phone: Radiology Comment on above: Left hip pain [M25.5 52] Start: 05-21-2022 ambulatory Fani Grace RN NURSE O N CALL Comment on above: Fall Fall; Hip Pain Start: 05-19-2022 Telephone encounter Stas miranda MD Work Phone: [facility] [place] Comment on above: Anticoagulation Start: 05-16-2022 [...] Result) Start: 04-04-2022 Telephone encounter Elise Paredes [facility] Comment on above: Anticoagulation Tele phone Fu (Lab INR) Start: 03-31-2022 Telephone encounter Stas miranda MD Work Phone: [facility] [place] Comment on above: Release Of Medical R ecords (AR PCP) Start: 03-21-2022 Telephone encounter Carmelina Cruz [facility] Comment on above: Anticoagulation Tele phone Fu Start: 02-21-2022 Telephone encounter Kristian Ferguson MD Work Phone: [facility] [place] Comment on above: Anticoagulation Start: 02-10-2022 Telephone encounter Stas miranda MD Work Phone: [facility] [place] Comment on above: Opened In Error Start: 01-27-2022 Telephone encounter [facility] Comment on above: Anticoagulation Tele phone Fu (Lab INR Result) Start: 01-20-2022 Telephone encounter [facility] Comment on above: Anticoagulation Tele phone Fu (Lab INR Result) Start: 01-17-2022 Telephone encounter Stas miranda MD Work Phone: [facility] Comment on above: Anticoagulation; Cri tical Results (INR) Start: 01-13-2022 Refill Stas newman MD Work Phone: [facility] Comment on above: Refill Request; Refi ll Request Start: 01-03-2022 Telephone encounter Senia Alan [facility] Comment on above: Anticoagulation Tele phone Fu (INR Home Test Result) Start: 01-02-2022 Telephone encounter Stas miranda MD Work Phone: [facility] Comment on above: Results Start: 12-26-2021 End: 12-26-2021 Patient encounter procedure Stas Mora MD Work Phone: [facility] Comment on above: Hospital discharge f ollow-up (Primary Dx); Encounter for immunization; TIA (transient ischemic attack); Thyroid nodule; Essential hypertension, benign; Paroxysmal atrial fibrillation (HCC); Atherosclerosis 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, unspecified vessel or lesion type, unspecified whether [place] or transplanted heart Start: 12-22-2021 Non-patient / Non-visit Dr. Maria E Mora Work Phone: [facility] Start: 12-21-2021 Non-patient / Non-visit Dr. Maria E Mora Work Phone: [facility] Start: 12-21-2021 End: 12-22-2021 Evaluation and management of inpatient [facility] Care [facility] Start: 12-21-2021 End: 12-22-[address] Stas Mora Work Phone: [facility] Work Phone: Start: 12-20-2021 Telephone encounter Stas miranda MD Work Phone: [facility] [place] Comment on above: Opened In Error Anticoagulation Tele phone Fu (INR Lab Result) Start: 12-06-2021 Telephone encounter Senia Cross h P [facility] Tele[facility] Comment on above: Anticoagulation Tele phone Fu (INR Lab Result) Start: 11-22-2021 Telephone encounter Janice Sal [facility] Ambulatory Telemanagement Comment on above: Anticoagulation Tele phone Fu (INR) Start: 11-08-2021 Telephone encounter Stas miranda MD Work Phone: [facility] [place] Comment on above: Opened In Error Anticoagulation Tele phone Fu (INR Lab Result) Start: 10-25-2021 Telephone encounter Janice Sal [facility]ulatory Telemanagement Comment on above: Anticoagulation Tele phone Fu (lab INR ) Start: 09-27-2021 Telephone encounter Yomi Wills [facility] Ambulatory Telemanagement Comment on above: Anticoagulation Tele phone Fu (Lab INR Result) Start: 09-13-2021 Orders Only Stas newman MD Work Phone: [facility] [place] Comment on above: assisted current us e of anticoagulant (Primary Dx); Encounter for monitoring Coumadin therapy Anticoagulation Tele phone Fu (INR Lab Result) Start: 09-05-2021 End: 09-05-2021 Patient encounter procedure Stas Mora MD Work Phone: [facility] [place] Comment on above: Encounter for Medica re annual wellness exam (Primary Dx); Paroxysmal atrial fibrillation (HCC); Essential hypertension, benign Start: 08-30-2021 Telephone encounter Jenna Armenta nhof HOSPICE ADMINISTRATOR.CCU NURSE Work Phone: [facility] [place] Comment on above: Orders (INR ) Anticoagulation Tele phone Fu (INR Lab Result) Start: 08-16-2021 Orders Only Stas newman MD Work Phone: [facility] [place] Comment on above: Anticoagulation Start: 08-02-2021 Telephone encounter Senia Alan [facility] Ambulatory Telemanagement Comment on above: Anticoagulation Tele phone Fu (INR Lab Result) Start: 07-16-2021 Telephone encounter Stas miranda MD Work Phone: [facility] Comment on above: Results Start: 07-13-2021 Refill Elvis RASHID RN.CCU NURSE Work Phone: [facility] Comment on above: Refill Request Start: 07-08-2021 End: 07-08-2021 Patient encounter procedure Stas Mora MD Work Phone: [facility] Comment on above: Essential hypertensi on, benign (Primary Dx); Atherosclerosis 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, unspecified vessel or lesion type, unspecified whether [place] or transplanted heart; Paroxysmal atrial fibrillation (HCC); Primary osteoarthritis of both knees Start: 07-03-2021 Telephone encounter Stas miranda MD Work Phone: [facility] Comment on above: Anticoagulation Tele phone Fu (Lab INR result) Start: 06-12-2021 Telephone encounter Stas miranda MD Work Phone: [facility] Comment on above: Anticoagulation (Lab INR result) Start: 03-12-2020 End: 03-12-2020 Subsequent hospital visit by physician Xr [facility] [place] Work Phone: Radiology Comment on above: Acute right-sided lo w back pain, unspecified whether sciatica present [M54.5] Start: 02-02-2018 Ambulatory DARRELL OLIVEIRA Facility :[facility] Start: 06-02-2017 End: 06-02-2017 [facility] DARRELL [facility] Procedures Date Procedure Procedure Detail Performing [...] Adult depression scr eening assessment Coretta Jalloh [facility] Start: 02-17-2023 Mri brain brain stem w/o contrast material Stas Mora MD Work Phone: Start: 02-10-2023 Plain chest X-ray Start: 02-10-2023 SARS-CoV-2 & FLU Ant igen (Rapid) Start: 05-21-2022 Radex hip unilateral with pelvis 2-3 views Jenna Fitzpatrick HOSPICE ADMINISTRATOR.CCU NURSE Work Phone: Start: 05-19-2022 PROTHROMBIN TIME/PT [facility] [...] Detail Author Start: 02-27-2031 Urine microalbumin profile [facility] Start: 05-26-2027 Diabetes Screening Diabetes Screenwa g [facility] Start: 06-02-2026 Diabetes Screening Diabetes Screenwa g [facility] Start: 08-15-2025 DIABETES SCREEN DIABETES SCREEN [facility] Start: 08-15-2025 Diabetes Screening Diabetes Screenwa g [facility] Start: 05-25-2025 Hepatitis B surface antibody level LDL Cholesterol [facility] Start: 03-30-2025 End: 03-30-2025 Patient encounter procedure 03/30/2025 11:00 AM EST Office Visit Geriatrics [address] [facility], [place] [id number] Luciana Cisneros MD [address] [place], [place] [phone] follow up 6 months Geriatrics Comment on above: follow up 6 months Start: 02-21-2025 DIABETES SCREEN DIABETES SCREEN [facility] Start: 01-10-2025 Registered Referred Registered Refer [facility] - Yash Start: 12-06-2024 DIABETES SCREEN DIABETES SCREEN [facility] Start: 12-05-2024 End: 12-05-2024 Patient encounter procedure 12/05/2024 12:40 PM EDT Office Visit [facility] [place] [address] [facility] [place] [address] Stas Mora MD [address] [place] [address] reschedule from 12/01 [facility] Comment on above: reschedule from 12/01 Start: 12-01-2024 End: 12-01-2024 Patient encounter procedure 12/01/2024 9:40 AM EDT Office Visit [facility] [place] [address] [facility], [place] [id number] Stas Mora MD [address] [place], [place] [phone] 6 mo f/u [facility] [place] Comment on above: 6 mo f/u Start: 11-26-2024 End: 02-25-2025 CBC W Auto Differential panel - Blood COMPLETE BLOOD COUNT AND DIFFERENTIAL Lab Routine Essential hypertension, benign Expected: 11/26/2024 (Approximate), Expires: 02/25/2025 [facility] Comment on above: Expected: 11/26/2024 (Approximate), Expires: 02/25/2025 Start: 11-26-2024 End: 02-25-2025 Comprehensive metabolic 2000 panel - Serum or Plasma COMPREHENSIVE METABOLIC PANEL Lab Routine Essential hypertension, benign Hyperlipidemia, unspecified hyperlipidemia type Expected: 11/26/2024 (Approximate), Expires: 02/25/2025 [facility] Work Phone: Comment on above: Expected: 11/26/2024 (Approximate), Expires: 02/25/2025 Start: 11-26-2024 End: 02-25-2025 Lipid 1996 panel - Serum or Plasma LIPID PANEL BASIC Lab Routine Essential hypertension, benign Hyperlipidemia, unspecified hyperlipidemia type Expected: 11/26/2024 (Approximate), Expires: 02/25/2025 [facility] Comment on above: Expected: 11/26/2024 (Approximate), Expires: 02/25/2025 Start: 11-25-2024 RSV Vaccine (1 - 1-d ose 60+ series) RSV Vaccine (1 - 1-dose 60+ series) [facility] Comment on above: Postponed from 08/12 (Declined at this time) Start: 11-25-2024 RSV Vaccine (1 - 1-d ose 75+ series) RSV Vaccine (1 - 1-dose 75+ series) [facility] Comment on above: Postponed from 08/12 (Declined at this time) Start: 11-23-2024 [facility] Start: 11-21-2024 Influenza vaccination Influenza Vacc ine (#1) [facility] Start: 09-06-[address] [facility] Start: 09-02-2024 Admission procedure [facility] Start: 09-01-2024 End: 09-02-2024 [facility] Start: 09-01-2024 Blood culture Blood Culture [facility] Start: 09-01-2024 Application of intermittent pneumatic compression device [facility] Start: 09-01-2024 Fall prevention [facility] Start: 09-01-2024 Oxygen therapy [facility] Start: 09-01-2024 Provision of activit y privileges [facility] Start: 09-01-2024 Assessment of risk o f venous thromboembolism [facility] Start: 09-01-2024 Insertion of cathete r into peripheral vein [facility] Start: 09-01-2024 Providing care accor ding to standard [facility] Start: 09-01-2024 Referral to occupati onal therapist [facility] Start: 09-01-2024 Referral to service [facility] Start: 09-01-2024 [facility] Start: 09-01-2024 Following clinical pathway protocol [facility] Start: 09-01-2024 Admission procedure [facility] Start: 09-01-2024 Hospital admission, emergency, from emergency room, medical nature [facility] Start: 08-31-2024 End: 08-31-2024 Patient encounter procedure 08/31/2024 11:00 AM EDT Office Visit Geriatrics [address] [facility] [place] [address] Luciana Cisneros MD [address] [place] [address] 3 month f/u Geriatrics Comment on above: 3 month f/u Start: 2024 Anxiety Screening Anxiety Screening [facility] Start: 2024 Depression Screening Depression Scre ening [facility] Start: 07-08-2024 DIABETES SCREEN DIABETES SCREEN [facility] Start: 06-02-2024 Hepatitis B surface antibody level LDL Cholesterol [facility] Start: 06-01-2024 End: 06-01-2024 Patient encounter procedure 06/01/2024 3:00 PM EDT Office Visit Geriatrics [address] [place] [address] Luciana Cisneros MD [address] [place] [address] Follow up visit for MRI Geriatrics Comment on above: Follow up visit for MRI Start: 06-01-2024 Covid-19 Vaccine () Covid-19 Vaccine () [facility] Start: 05-30-2024 End: 05-30-2024 Patient encounter procedure 05/30/2024 11:20 AM EDT Office Visit [facility] [place] [address] [place] [address] Lucinaa Cisneros MD [address] [place] [address] Follow up visit for MRI [facility] [place] Comment on above: Follow up visit for MRI Start: 05-26-2024 End: 05-26-2024 Patient encounter procedure 05/26/2024 9:20 AM EST Office Visit Family [facility] [address] [place], [place] [id number] Stas Mora MD [address] [place] [address] 6 mo f/u Family [facility] Comment on above: 6 mo f/u Start: 05-25-2024 End: 08-24-2024 CBC W Auto Differential panel - Blood COMPLETE BLOOD COUNT AND DIFFERENTIAL Lab Routine Abnormal CBC Expected: 05/25/2024 (Approximate), Expires: 08/24/2024 [facility] Comment on above: Expected: 05/25/2024 (Approximate), Expires: 08/24/2024 Start: 05-25-2024 End: 08-24-2024 Comprehensive metabolic 2000 panel - Serum or Plasma COMPREHENSIVE METABOLIC PANEL Lab Routine Essential hypertension, benign Hyperlipidemia, unspecified hyperlipidemia type Expected: 05/25/2024 (Approximate), Expires: 08/24/2024 [facility] Work Phone: Comment on above: Expected: 05/25/2024 (Approximate), Expires: 08/24/2024 Start: 05-25-2024 End: 08-24-2024 Lipid 1996 panel - Serum or Plasma LIPID PANEL BASIC Lab Routine Essential hypertension, benign Hyperlipidemia, unspecified hyperlipidemia type Expected: 05/25/2024 (Approximate), Expires: 08/24/2024 [facility] Comment on above: Expected: 05/25/2024 (Approximate), Expires: 08/24/2024 Start: 05-25-2024 End: 05-25-2024 ambulatory 05/25/2024 8:30 AM EST Results Only [place] [facility] Draw Station [address] [facility] [place] [address] [facility] Start: 05-23-2024 End: 05-23-2024 Patient encounter procedure 05/23/2024 2:30 PM EST Appointment [facility] [address] [place] [address] Cognitive impairment, mild, 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] [facility] Comment on above: Cognitive impairment , mild, 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] Start: 04-29-2024 End: 04-29-2024 Patient encounter procedure 04/29/2024 3:40 PM EST Office Visit [facility] [place] [address] [place] [address] Stas Mora MD [address] [place], [place] [phone] memory issues,See TE [facility] [place] Comment on above: memory issues,See TE Start: 04-27-2024 End: 04-27-2024 Patient encounter procedure 04/27/2024 9:30 AM EST Office Visit Geriatrics [address] [place] [address] Luciana Cisneros MD [address] [place] [address] Dementia, unspecified dementia severity, unspecified dementia type, unspecified whether behavioral, psychotic, or mood disturbance or anxiety (HCC) [F03.90] Geriatrics Comment on above: Dementia, unspecifie d dementia severity, unspecified dementia type, unspecified whether behavioral, psychotic, or mood disturbance or anxiety (HCC) [F03.90] Start: 03-23-2024 Advance Directive Discussion Advance Directive Discussion [facility] Start: 03-23-2024 Medicare Advantage A nnual Wellness Visit Medicare Advantage Annual Wellness Visit [facility] Start: 03-13-2024 DIABETES SCREEN DIABETES SCREEN [facility] Start: 11-26-2023 End: 11-26-2023 Patient encounter procedure [facility] [place] Comment on above: 6 month follow up 6 month follow up, jessica bashir, on aricept x 3 months Start: 11-22-2023 Covid-19 Vaccine () Covid-19 Vaccine () [facility] Start: 11-22-2023 Influenza vaccination Influenza Vacc ine (#1) [facility] Start: 09-15-2023 End: 09-15-2023 Patient encounter procedure 09/15/2023 8:40 AM EDT Office Visit [facility] [place] [address] [place] [id number] Stas Mora MD [address] [place], [place] [phone] leg swelling- both legs--See triage 09/14/2023. [facility] [place] Comment on above: leg swelling- both l egs--See triage 09/14/2023. Start: 08-16-2023 Hepatitis B surface antibody level LDL CHOLESTEROL [facility] Start: 08-14-2023 End: 08-14-2023 Patient encounter procedure 08/14/2023 10:00 AM EDT Office Visit [facility] [address] [place] [id number] Stas Mora MD [address] [place], [place] [id number] Memory Issues [facility] [place] Comment on above: Memory Issues Start: 06-04-2023 End: 09-03-2023 Ferritin [Mass/volume] in Serum or Plasma [facility] Work Phone: Comment on above: Expected: 06/04/2023 , Expires: 09/03/2023 Start: 06-04-2023 End: 09-03-2023 Iron and Iron binding capacity panel - Serum or Plasma [facility] Work Phone: Comment on above: Expected: 06/04/2023 , Expires: 09/03/2023 Start: 06-01-2023 End: 08-31-2023 CBC panel - Blood by Automated count CBC Lab Routine Paroxysmal atrial fibrillation (HCC) Essential hypertension, benign Expected: 06/01/2023 (Approximate), Expires: 08/31/2023 [facility] Work Phone: Comment on above: Expected: 06/01/2023 (Approximate), Expires: 08/31/2023 Start: 06-01-2023 End: 08-31-2023 Comprehensive metabolic 2000 panel - Serum or Plasma COMP METABOLIC PANEL Lab Routine Paroxysmal atrial fibrillation (HCC) Essential hypertension, benign Hyperlipidemia, unspecified hyperlipidemia type Expected: 06/01/2023 (Approximate), Expires: 08/31/2023 [facility] Work Phone: Comment on above: Expected: 06/01/2023 (Approximate), Expires: 08/31/2023 Start: 06-01-2023 End: 08-31-2023 Lipid 1996 panel - Serum or Plasma LIPID PANEL BASIC Lab Routine Paroxysmal atrial fibrillation (HCC) Essential hypertension, benign Hyperlipidemia, unspecified hyperlipidemia type Expected: 06/01/2023 (Approximate), Expires: 08/31/2023 [facility] Work Phone: Comment on above: Expected: 06/01/2023 (Approximate), Expires: 08/31/2023 Start: 05-13-2023 Covid-19 Vaccine () Covid-19 Vaccine () [facility] Start: 03-23-2023 Advance Directive Discussion Advance Directive Discussion [facility] Start: 03-23-2023 Behavioral Health Screening Behavioral Health Screening [facility] Start: 03-23-2023 Depression Assessment Depression Ass essment [facility] Start: 02-21-2023 Hepatitis B surface antibody level LDL CHOLESTEROL [facility] Start: 02-10-2023 [facility] Start: 12-06-2022 Hepatitis B surface antibody level LDL CHOLESTEROL [facility] Start: 11-21-2022 Covid-19 Vaccine () Covid-19 Vaccine () [facility] Start: 11-21-2022 Influenza vaccination [facility] Start: 09-05-2022 PNEUMOCOCCAL: 65+ (2 - PCV) PNEUMOCOCCAL: 65+ (2 - PCV) [facility] Comment on above: Postponed from 02/21 (Declined at this time) Start: 07-08-2022 Hepatitis B surface antibody level LDL CHOLESTEROL [facility] Start: 04-26-2022 COVID-19 VACCINE (6 - Pfizer series) COVID-19 VACCINE (6 - Pfizer series) [facility] Start: 03-23-2022 ADVANCE DIRECTIVE DISCUSSION ADVANCE DIRECTIVE DISCUSSION [facility] Start: 03-23-2022 DEPRESSION ASSESSMENT DEPRESSION ASS ESSMENT [facility] Start: 03-13-2022 Hepatitis B surface antibody level LDL CHOLESTEROL [facility] Start: 03-10-2022 End: 05-10-2022 CBC panel - Blood by Automated count CBC Lab Routine TIA (transient ischemic attack) Essential hypertension, benign Atherosclerosis 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, unspecified vessel or lesion type, unspecified whether [place] or transplanted heart Expected: 03/10/2022 (Approximate), Expires: 05/10/2022 [facility] Work Phone: Comment on above: Expected: 03/10/2022 (Approximate), Expires: 05/10/2022 Start: 03-10-2022 End: 05-10-2022 Comprehensive metabolic 2000 panel - Serum or Plasma COMP METABOLIC PANEL Lab Routine TIA (transient ischemic attack) Essential hypertension, benign Atherosclerosis 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, unspecified vessel or lesion type, unspecified whether [place] or transplanted heart Expected: 03/10/2022 (Approximate), Expires: 05/10/2022 [facility] Work Phone: Comment on above: Expected: 03/10/2022 (Approximate), Expires: 05/10/2022 Start: 03-10-2022 End: 05-10-2022 Lipid 1996 panel - Serum or Plasma LIPID PANEL BASIC Lab Routine TIA (transient ischemic attack) Essential hypertension, benign Atherosclerosis 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, unspecified vessel or lesion type, unspecified whether [place] or transplanted heart Expected: 03/10/2022 (Approximate), Expires: 05/10/2022 [facility] Work Phone: Comment on above: Expected: 03/10/2022 (Approximate), Expires: 05/10/2022 Start: 01-03-2022 End: 03-05-2022 Comprehensive metabolic 2000 panel - Serum or Plasma COMP METABOLIC PANEL Lab Routine Atherosclerosis 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, unspecified vessel or lesion type, unspecified whether [place] or transplanted heart Essential hypertension, benign Expected: 01/03/2022 (Approximate), Expires: 03/05/2022 [facility] Work Phone: Comment on above: Expected: 01/03/2022 (Approximate), Expires: 03/05/2022 Start: 01-03-2022 End: 03-05-2022 LIPID PANEL BASIC LIPID PANEL BASIC Lab Routine Atherosclerosis 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, unspecified vessel or lesion type, unspecified whether [place] or transplanted heart Essential hypertension, benign Expected: 01/03/2022 (Approximate), Expires: 03/05/2022 [facility] Work Phone: Comment on above: Expected: 01/03/2022 (Approximate), Expires: 03/05/2022 Start: 12-24-2021 Prothrombin time [facility] Work Phone: Start: 12-23-2021 Prothrombin time [facility] Work Phone: Start: 12-22-[address] [facility] Work Phone: Start: 12-21-2021 Assessment of risk o f venous thromboembolism [facility] Work Phone: Start: 12-21-2021 Cardiac monitoring [facility] Work Phone: Start: 12-21-2021 Catheterization of vein [facility] Work Phone: Start: 12-21-2021 Continuous pulse oximetry [facility] Work Phone: Start: 12-21-2021 Elevation of head of bed [facility] Work Phone: Start: 12-21-2021 Exercises [facility] Work Phone: Start: 12-21-[address] anned interventions [facility] Work Phone: Start: 12-21-2021 Insertion of cathete r into peripheral vein [facility] Work Phone: Start: 12-21-2021 Measuring intake and output [facility] Work Phone: Start: 12-21-2021 Notification of physician [facility] Work Phone: Start: 12-21-2021 Oxygen therapy [facility] Work Phone: Start: 12-21-2021 Providing care accor ding to standard [facility] Work Phone: Start: 12-21-2021 Provision of activit y privileges [facility] Work Phone: Start: 12-21-2021 Referral to occupati onal therapist [facility] Work Phone: Start: 12-21-2021 Referral to service [facility] Work Phone: Start: 12-21-2021 Tobacco use cessatio n education [facility] Work Phone: Start: 12-21-2021 US scan of thyroid Thyroid [facility] Work Phone: Start: 12-21-2021 [facility] Work Phone: Start: 12-21-2021 End: 12-21-2021 Following clinical pathway protocol [facility] Work Phone: Start: 12-21-2021 Verification routine [facility] Work Phone: Start: 12-21-2021 Admission procedure [facility] Work Phone: Start: 12-21-2021 CT of head without contrast STROKE Brain/Head without Cont [facility] Work Phone: Start: 12-21-2021 CT Unspecified body region WO contrast [facility] Work Phone: Start: 12-21-2021 Oxygen therapy [facility] Work Phone: Start: 12-21-2021 End: 12-22-2021 [facility] Work Phone: Start: 11-21-2021 Influenza vaccination INFLUENZA (#1) [facility] Start: 09-24-2021 COVID-19 VACCINE (5 - Booster for Pfizer series) COVID-19 VACCINE (5 - Booster for Pfizer series) [facility] Start: 08-30-2021 End: 10-30-2021 PT panel - Platelet poor plasma by Coagulation assay [facility] Work Phone: Comment on above: Expected: 08/30/2021 , Expires: 10/30/2021 Start: 07-08-2021 End: 09-07-2021 Comprehensive metabolic 2000 panel - Serum or Plasma [facility] Work Phone: Comment on above: Expected: 07/08/2021 (Approximate), Expires: 09/07/2021 Start: 07-08-2021 End: 09-07-2021 LIPID PANEL BASIC [facility] Work Phone: Comment on above: Expected: 07/08/2021 (Approximate), Expires: 09/07/2021 Start: 04-27-2021 COVID-19 VACCINE (4 - Booster for Pfizer series) COVID-19 VACCINE (4 - Booster for Pfizer series) [facility] Start: 03-23-2021 ADVANCE DIRECTIVE DISCUSSION ADVANCE DIRECTIVE DISCUSSION [facility] Start: 03-23-2021 DEPRESSION ASSESSMENT DEPRESSION ASS ESSMENT [facility] Start: 02-21-2009 Pneumococcal Vaccine : 65+ (2 - PCV) Pneumococcal Vaccine: 65+ (2 - PCV) [facility] Start: 02-21-2009 PNEUMOCOCCAL: 65+ (2 - PCV) PNEUMOCOCCAL: 65+ (2 - PCV) [facility] Start: 02-23-2008 Urine microalbumin profile DTAP,TDAP,TD (1 - Tdap) [facility] Start: 1995 RSV Vaccine (1 - 1-d ose 60+ series) RSV Vaccine (1 - 1-dose 60+ series) [facility] Start: 08-12-1985 SHINGRIX VACCINE (1 of 2) VALDES GRIX VACCINE (1 of 2) [facility] Anion gap in Serum o r Plasma [facility] BUN/Creatinine ratio [facility] Calcium [Mass/volume ] in Serum or Plasma [facility] Carbon dioxide, tota l [Moles/volume] in Central venous blood [facility] Creatinine [Mass/vol ume] in Serum or Plasma [facility] Glucose [Mass/volume ] in Serum or Plasma [facility] Hemoglobin.gastroint estin al.lower [Presence] in Stool by Immunoassay FECAL OCCULT BLOOD TEST Lab Routine Abnormal CBC 06/04/2023 2:13 PM EDT [facility] Work Phone: INR in Blood by Coagulation assay [facility] Measurement of renal function [facility] End: 05-27-2025 MR Brain WO contrast MRI BRAIN W QUANT WO IVCON Radiology Routine Cognitive impairment, mild, so stated 1 Occurrences starting 04/27/2024 until 05/27/2025 [facility] Work Phone: Comment on above: 1 Occurrences starti ng 04/27/2024 until 05/27/2025 End: 05-27-2025 MR Unspecified body region 3D post processing MRI 3D BRAIN QUANT Radiology Routine Cognitive impairment, mild, so stated 1 Occurrences starting 04/27/2024 until 05/27/2025 [facility] Comment on above: 1 Occurrences starti ng 04/27/2024 until 05/27/2025 End: 03-17-2024 Mri brain brain stem w/o contrast material MRI BRAIN WO IVCON Radiology STAT Cerebral infarction, unspecified mechanism (HCC) 1 Occurrences starting 02/16/2023 until 03/17/2024 [facility] Work Phone: Comment on above: 1 Occurrences starti ng 02/16/2023 until 03/17/2024 Mri brain brain stem w/o contrast material MRI BRAIN WO IVCON Radiology STAT Cerebral infarction, unspecified mechanism (HCC) 02/17/2023 8:13 AM EST [facility] Work Phone: Patient Education ED Weakness (U ncertain Cause) [facility] Work Phone: Patient referral [facility] Work Phone: Potassium measurement [facility] Prothrombin time [facility] End: 09-13-2022 PT panel - Platelet poor plasma by Coagulation assay PROTHROMBIN TIME/PT Lab Routine assisted current use of anticoagulant Encounter for monitoring Coumadin therapy Once per week for 99 Occurrences starting 09/13/2021 until 09/13/2022 [facility] Work Phone: Comment on above: Once per week for 99 Occurrences starting 09/13/2021 until 09/13/2022 PT panel - Platelet poor plasma by Coagulation assay PROTHROMBIN TIME/PT Lab Routine 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 Encounter for monitoring Coumadin therapy 09/13/2021 8:42 AM EDT [facility] Work Phone: End: 01-16-2024 PT panel - Platelet poor plasma by Coagulation assay PROTHROMBIN TIME/PT Lab Routine 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 Paroxysmal atrial fibrillation (HCC) Once per week for 99 Occurrences starting 01/16/2023 until 01/16/2024 [facility] Work Phone: Comment on above: Once per week for 99 Occurrences starting 01/16/2023 until 01/16/2024 End: 12-23-2024 PT panel - Platelet poor plasma by Coagulation assay PROTHROMBIN TIME Lab STAT 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 24 Occurrences starting 12/24/2023 until 12/23/2024 [facility] Work Phone: Comment on above: 24 Occurrences start ing 12/24/2023 until 12/23/2024 Serum chloride measurement [facility] Sodium measurement [facility] Urea nitrogen [Mass/volume] in Serum or Plasma [facility] End: 01-25-2023 Us soft tissue head & neck real time imge docm US THYROID/PARATHYROID Radiology Routine Thyroid nodule 1 Occurrences starting 12/26/2021 until 01/25/2023 [facility] Work Phone: Comment on above: 1 Occurrences starti ng 12/26/2021 until 01/25/2023 [facility] Immunizations Immunization Date Immunization Notes Care Provider Fa sam 12-03-2023 influenza virus vacc ine, unspecified formulation Stas Mora MD Work Phone: [facility] 01-10-2023 influenza (HD-IIV4) vaccine, age 65+ yr, high dose, quadrivalent, PF (FLUZONE HIGH-DOSE) Corteta Yeimi [facility] 01-10-2023 influenza virus vacc ine, unspecified formulation Coretta Yeimi [facility] 12-26-2021 influenza, high-dose , quadrivalent vaccine (FLUZONE HIGH DOSE QUADRIVALENT) Stas Mora MD Work Phone: [facility] 12-26-2021 influenza virus vacc ine, unspecified formulation Senia Cross [facility] 02-27-2021 tetanus toxoid, redu natviidad diphtheria toxoid, and acellular pertussis vaccine, adsorbed Stas Mora MD Work Phone: [facility] 02-27-2021 zoster vaccine recombinant Stas Mora MD Work Phone: [facility] 12-25-2020 Covid (Pfizer) Dr. Stas gonzales Work Phone: [facility] 12-10-2020 influenza (HD-IIV4) vaccine, age 65+ yr, high dose, quadrivalent, PF (FLUZONE HIGH-DOSE) Coretta [facility] 12-10-2020 influenza, high dose seasonal, preservative-free Stas Mora MD Work Phone: [facility] 09-17-2020 zoster vaccine recombinant Stas Mora MD Work Phone: [facility] 05-09-2020 Covid (Pfizer) Dr. Stas gonzales Work Phone: [facility] 04-18-2020 Covid (Pfizer) Dr. Stas gonzales Work Phone: [facility] 12-24-2016 influenza, high dose seasonal, preservative-free Stas Mora MD Work Phone: [facility] 12-22-2015 Influenza virus vaccine [facility] 12-22-2015 influenza, seasonal, injectable, preservative free Stas Mora MD Work Phone: [facility] Work Phone: 01-30-2014 influenza, high dose seasonal, preservative-free Stas Mora MD Work Phone: [facility] Work Phone: 01-24-2013 influenza virus vacc ine, unspecified formulation Stas Mora MD Work Phone: [facility] 02-22-2008 pneumococcal polysaccharide vaccine, 23 valent Stas Mora MD Work Phone: [facility] Work Phone: 02-22-2008 tetanus and diphther ia toxoids, adsorbed, preservative free, for adult use (2 Lf of tetanus toxoid and 2 Lf of diphtheria toxoid) Stas Mora MD Work Phone: [facility] Work Phone: Payers Date Payer Category Payer Self-pay [id number] 2022 Unknown [id number] 2016 Medicare [employer] [place] [id number] 2016-Present [phone] [address] [place] [address] O [id number] 2016 Medicare [employer] [place] [id number] 2016-Present [phone] [address] [place] [address] O [id number] 2016 Medicare ([place] Care[place] [id number] 2016 Medicare [id number] 1935 Unknown [id number] 2.16840.1.191736.3.579. 2.627 1935 Unknown [id number] 2.840.1.406633.3.579. 2.627 Unknown [place] AUTH REQUIR ED SEE NOTE [id number] Unknown [place] AUTH REQUIR ED SEE NOTE . [id number] Unknown [id number] 2.16840.1.774034.3.579. 2.462 Unknown [id number] 2.16840.1.794911.3.579. 2.462 Unknown [id number] 2.16840.1.461785.3.579. 2.462 Unknown [id number] 2.16840.1.360654.3.579. 2.462 Unknown [id number] 2.16840.1.311682.3.579. 2.462 Unknown [id number] 2.16840.1.405457.3.579. 2.462 Unknown [id number] 2.16840.1.510742.3.579. 2.462 Unknown [id number] 2.16840.1.477205.3.579. 2.462 Unknown [id number] 2.16840.1.099659.3.579. 2.462 Unknown [id number] 2.16.840.1.207177.3.579. 2.462 Unknown [id number] 2.16.840.1.149260.3.579. 2.462 Unknown [id number] 2.16.840.1.972848.3.579. 2.462 Unknown [id number] 2.16.840.1.177503.3.579. 2.462 Unknown [id number] 2.16840.1.025053.3.579. 2.462 Unknown [id number] .840.1.468665.3.579. 2.462 Unknown [id number] 2.840.1.532398.3.579. 2.462 Unknown [id number] 2.840.1.114064.3.579. 2.462 Unknown [id number] 2.840.1.843473.3.579. 2.462 Unknown [id number] 2.840.1.621255.3.579. 2.462 Unknown [id number] 2.840.1.832848.3.579. 2.462 Unknown [id number] 2.840.1.371131.3.579. 2.462 Unknown [id number] 2.840.1.705528.3.579. 2.462 Unknown [id number] .840.1.979807.3.579. 2.462 Unknown [id number] .840.1.286079.3.579. 2.462 Unknown [id number] 2.840.1.813579.3.579. 2.462 Unknown [id number] 2.16840.1.908826.3.579. 2.462 Unknown [id number] 2.16840.1.731014.3.579. 2.462 Unknown [id number] 2.840.1.567759.3.579. 2.462 Unknown [id number] 2.16.840.1.554351.3.579. 2.462 Unknown [id number] 2.16.840.1.632201.3.579. 2.462 Unknown [id number] 2.16.840.1.956013.3.579. 2.462 Unknown [id number] 2.16.840.1.205260.3.579. 2.462 Unknown [id number] 2.16.840.1.548784.3.579. 2.462 Unknown [id number] 2.16.840.1.151363.3.579. 2.462 Unknown [id number] 2.16.840.1.502245.3.579. 2.462 Unknown [id number] 2.16.840.1.997709.3.579. 2.462 Unknown [id number] 2.16.840.1.255573.3.579. 2.462 Unknown [id number] 2.16.840.1.924912.3.579. 2.462 Unknown [id number] 2.16.840.1.053721.3.579. 2.462 Unknown [id number] 2.16.840.1.853516.3.579. 2.462 Social History Date Type Detail Facility Start: 05-04-2017 End: 01-06-2025 Tobacco smoking status NHIS Ex-smoker [facility] Start: 02-15-2021 End: 07-28-2024 Alcohol intake Current non-drinker of alcohol (finding) [facility] Start: 08-26-2020 End: 08-29-2021 History SDOH Alcohol Frequency 2 [facility] Start: 08-26-2020 End: 08-29-2021 History SDOH Alcohol Std Drinks 1 [facility] Start: 08-26-2020 End: 08-29-2021 History SDOH Social Connections [facility] 3 [facility] Start: 08-26-2020 End: 08-29-2021 History SDOH Social Connections Living 5 [facility] Start: 08-26-2020 History SDOH Physical Activity MPS 6 [facility] Start: 08-26-2020 Education 12 [facility] Start: 1935 Sex Assigned At Male [facility] Start: 02-11-2020 End: 12-26-2021 Exposure to SARS-CoV-2 (event) Not sure [facility] History of tobacco use Current smoker [facility] Start: 05-04-2017 End: 12-26-2021 Tobacco use and exposure Smokeless tobacco non-user [facility] Start: 12-21-2021 End: 02-10-2023 Tobacco smoking status NHIS Unknown if ever smoked [facility] Start: 12-22-2021 Non-smoker [facility] Start: 12-26-2021 Tobacco Comment 30 yaers ago [facility] Start: 02-28-2020 End: 08-29-2021 History of Social function [facility] Start: 02-28-2020 End: 08-29-2021 Social connection and isolation panel [facility] Do you belong to any clubs or organizations such as uatsdin groups, unions, fraternal or athletic groups, or school groups? No [facility] Are you now , , , , never or living with a partner? [facility] How often to you hav e a drink containing alcohol? Monthly or less [facility] How many standard dr inks containing alcohol do you have on a typical day? 1 or 2 [facility] How often do you hav e 6 or more drinks on 1 occasion? Never [facility] How hard is it for y ou to pay for the very basics like food, housing, medical care, and heating Not hard at all [facility] Do you feel stress - tense, restless, nervous, or anxious, or unable to sleep at night because your mind is troubled all the time - these days [OSQ] Not at all [facility] (I/We) worried velvet er (my/our) food would run out before (I/we) got money to buy more. Never true [facility] Start: 08-26-2020 Gender identity Identifies as male gender (finding) [facility] Start: 08-26-2020 Sexual orientation Heterosexual (finding) [facility] Sex Assigned At Sex [facility] Are you now , , , , never or living with a partner? [facility] How often to you hav e a drink containing alcohol? 2-4 times a month [facility] Goals Date Patient Goal Desired Activity /State Functional Status Date Assessment Result Facility 09-06-2024 Functional status Ambulates [facility] Work Phone: 07-26-2024 Total score [AUDIT-C] 1 07/27/19 6:26 PM EDT User, Olena [facility] 07-26-2024 Within the last year , have you been humiliated or emotionally abused in other ways by your partner or ex-partner? No 07/26/2024 6:26 PM EDT [email or web address] 07-26-2024 Within the last year , have you been afraid of your partner or ex-partner? No 07/26/2024 6:26 PM EDT [facility], [facility] 07-26-2024 Within the last year , have you been raped or forced to have any kind of sexual activity by your partner or ex-partner? No 07/26/2024 6:26 PM EDT [facility] 07-26-2024 Within the last year , have you been kicked, hit, slapped, or otherwise physically hurt by your partner or ex-partner? No 07/26/2024 6:26 PM EDT User, [email or web address] No [facility] 07-26-2024 How often to you hav e a drink containing alcohol? Monthly or less 07/26/2024 6:26 PM EDT User, [email or web address] Monthly or less [facility] 07-26-[address] inks containing alcohol do you have on a typical day? 1 or 2 07/26/2024 6:26 PM EDT User, [email or web address] 1 or 2 [facility] 07-26-2024 How often do you hav e 6 or more drinks on 1 occasion? Never 07/26/2024 6:26 PM EDT User, [email or web address] Never [facility] 11-17-2022 Functional Status Up ad tara Samira Hogan [place] 11-17-2022 Functional Status Identified as high risk, Fall ID band on, Room located near nursing station [facility] 12-22-2021 Functional status Ambulates;Chair [facility] Work Phone: 07-02-2016 Are you deaf, or do you have serious difficulty hearing No 07/02/2016 2:52 PM EDT Anita Zhang, DO No [facility] Work Phone: 07-02-2016 Are you blind, or do you have serious difficulty seeing, even when wearing glasses No 07/02/2016 2:52 PM EDT Anita Zhang, DO No [facility] 07-02-2016 Do you have serious difficulty walking or climbing stairs No 07/02/2016 2:52 PM EDT Anita Zhang, DO No [facility] 07-02-2016 Do you have difficul ty dressing or bathing No 07/02/2016 2:52 PM EDT Anita Zhang, DO No [facility] 07-02-2016 Because of a physica l, mental, or emotional condition, do you have difficulty doing errands alone such as visiting a physician's office or shopping No 07/02/2016 2:52 PM EDT Anita Zhang, DO No [facility] Mental Status Date Assessment Result Facility 09-06-2024 Cognitive function Voice/Name [facility] Work Phone: 09-05-2024 Cognitive function Appropriate;Cooperativ e [facility] Work Phone: 02-10-2023 Cognitive function Level Of Cons ciousness Awake;Alert;Appropriate;Fol lows Commands [facility] Work Phone: 11-17-2022 Mental Status Orientation Oriented x 4 [facility] 11-17-2022 Mental Status [facility] 12-22-2021 Cognitive function Voice/Name [facility] Work Phone: 12-21-2021 Cognitive function Voice[facility]Name [facility] [facility] Work Phone: 07-02-2016 Because of a physica l, mental, or emotional condition, do you have serious difficulty concentrating, remembering, or making decisions No 07/02/2016 2:52 PM EDT Anita Zhang, DO No [facility] Clinical Notes 03-12-2020 to 09-21-2024 Telephone Encounter - Petty Vargas - 09/21/2024 9:21 AM EDTTelephone Encounter - Petty Vargas - 09/21/2024 9:21 AM EDT Note Date & Type Note Facility 09-21-2024 Telephone encounter Note Form atting of this note might be different from the original. [facility]. Maria Guadalupe states that he has been in there for two weeks. Please advise [facility] 09-21-2024 Miscellaneous Notes Formattin g of this note might be different from the original. [facility] healthy living for rehabilitation. Maria Guadalupe states that he has been in there for two weeks. Please advise documented in this encounter [facility] 09-06-2024 Consult note [facility] 09-06-2024 Consult note Note Date/Time September 06, 2024 4:37pm [facility] Medical Records Department [address] [place] [address] Counseling Note - Pharmacy 09/06/24 1143 MR#: [id number] Acct: [id number] Name: ROBY FLORES Radha Rep #:[id number] : 1935 89 From: Isabelle Summers PCP: Dr. Stas Mora MD Status:AD M IN Y Location: [place] [address] Pharmacy MS Med Reconciliation Pharmacy Service has performed discharge [...] Signature (if applicable): Date CC: ~ Signed [facility] Work Phone: 1(953) 122-544606-17-2025 Discharge summary Author Navid Dominguez [facility] Note Date/Time September 06, 2024 11:[address] [place] [address] Health System Medical Records Department [address] [place] [address] Discharge Summary 09/06/24 1109 MR#: [id number] Acct: [id number] Name: ROBY FLORES Rep #:[id number] : 1935 89 From: Navid Trejo PCP: Dr. Stas Mora MD Status:[facility] Location: [place] [address] Providers Date of Admission: 09/02/24 Date of [...] explained to the [facility] 09/06: INR 2.4. Hold warfarin today [...] The daughter is the healthcare power of copier repair technician. #History of dementia: On rivastigmine #Dyslipidemia: On [...] (Auto) 66.8, Lymph % (Auto) 16.4 L, Siskiyou % (Auto) 9.1, Eos % (Auto) 6.3 [...] in before D/C Order can be placed): Fdc Facility Charges/Coding Visit Charges Inpatient E&M: 06052 Disch Hosp >30min 09/06/24 1114 <Electronically signed by Navid Dominguez MD> Cosigner Signature (if applicable): CC: Dr. Stas Mora MD; Dr. Navid Dominguez MD~ Signed [facility] Work Phone: 1(370) 852-683406-17-2025 Discharge summary Author Navid Dominguez [facility] Note Date/Time September 06, 2024 11:0 9am [facility] Medical Records Department [address] [place] [address] Transfer to [facility] MR#: [id number] Acct: [id number] Name: ROBY FLORES Rep #:[id number] : 1935 89 From: Navid Trejo PCP: Dr. Stas Mora MD Status:AD M IN Certification of patient admission REQUIRED AT TIME OF ADMISSION. I CERTIFY THAT POST-HOSPITAL ECF SERVICES ARE REQUIRED TO BE GIVEN ON AN IN-PATIENT BASIS BECAUSE OF THE ABOVE NAMED PATIENT'S NEED FOR GROUP HOME CARE ON A CONTINUING BASIS FOR THE CONDITION(S) FOR WHICH HE/SHE WAS RECEIVING IN-PATIENT HOSPITAL SERVICES PRIOR TO HIS/HER TRANSFER TO THE [facility]. 09/06/24 1109<Electronically signed by Navid [...] explained to the patient and [facility] # Fever * Patient developed a [...] The daughter is the healthcare power of copier repair technician. #History of dementia: On rivastigmine #Dyslipidemia: On [...] liberalized regular diet with consistency/texture as per GLEASON OPERATOR. Will continue 120mL ensure plus HP [...] in before D/C Order can be placed): Fdc Facility 09/06/24 1109 <Electronically signed by Navid Dominguez MD> Cosigner Signature (if applicable): CC: Dr. Stas Mora MD; Dr. Kathy Wells MD ~ [facility] Work Phone: 1([phone]) 417-765506-17-2025 Discharge summary [facility] Medical Records Department [address] [place] [address] Discharge Summary 09/06/24 1109 MR#: [id number] Acct: [id number] Name: ROBY FLORES Rep #:[id number] : 1935 89 From: Navid Trejo PCP: Dr. Stas Mora MD Status:[facility] IN Location: [address] Providers Date of Admission: 09/02/24 Date [...] explained to the patient and [facility] 09/06: INR 2.4. Hold warfarin today [...] The daughter is the healthcare power of copier repair technician. #History of dementia: On rivastigmine #Dyslipidemia: On [...] (Auto) 66.8, Lymph % (Auto) 16.4 L, [place]iski[place] % (Auto) 9.1, Eos % (Auto) 6.3 [...] in before D/C Order can be placed): Fdc Facility Charges/Coding Visit Charges Inpatient E&M: 88669 Disch Hosp >30min 09/06/24 1114 Cosigner Signature (if applicable): CC: Dr. Stas Mora MD; Dr. Navid Dominguez MD~ Signed [facility]06-17-2025 Discharge summary [facility] Medical Records Department [address] [place] [address] Transfer to [facility] MR#: [id number] Acct: [id number] Name: ROBY FLORES Rep #:[id number] : 1935 89 From: Navid Trejo PCP: Dr. Stas Mora MD Status:AD M IN Certification of patient admission REQUIRED AT TIME OF ADMISSION. I CERTIFY THAT POST-HOSPITAL ECF SERVICES ARE REQUIRED TO BE GIVEN ON AN IN-PATIENT BASIS BECAUSE OF THE ABOVE NAMED PATIENT'S NEED FOR GROUP HOME CARE ON A CONTINUING BASIS FOR THE [...] The daughter is the healthcare power of copier repair technician. #History of dementia: On rivastigmine #Dyslipidemia: On [...] liberalized regular diet with consistency/texture as per GLEASON OPERATOR. Will continue 120mL ensure plus HP [...] in before D/C Order can be placed): Fdc Facility 09/06/24 1109 Cosigner Signature (if applicable): CC: Dr. Stas Mora MD; Dr. Kathy Wells MD ~ [facility]06-17-2025 [facility] Medical Records Department [address] [place] [address] Discharge Summary 09/06/24 1109 MR#: [id number] Acct: [id number] Name: ROBY FLORES Rep #: [id number] : 1935 89 From: Navid Dominguez MD PCP: Dr. Stas Mora MD Status:ADM IN [facility] Providers Date of Admission: 09/02/24 Date of [...] The daughter is the healthcare power of copier repair technician. #History of dementia: On rivastigmine #Dyslipidemia: On [...] / Lab / Microbiol (more content not included)...[facility] 09-05-2024 Progress note Author Navid Dominguez [facility] Note Date/Time September 05, 2024 4:15 pm [facility] Medical Records Department [address] [place] [address] Progress Note - Hospitalist 09/05/24 1608 MR#: [id number] Acct: [id number] Name: ROBY FLORES Rep #:[id number] : 1935 89 From: Navid Trejo PCP: Dr. Stas Mora MD Status:AD M IN Location: [place] [address] Reason for Visit Reason for Visit: Diagnoses [...] Clarity Clear, Urine pH 7.0, Ur Specific [place] 1.005, Urine Protein 15 H, Urine Glucose [...] 77.2 H, Lymph % (Auto) 9.8 L, [place]isk[place] % (Auto) 7.9, Eos % (Auto) 4.0, [...] explained to the patient and [facility] # Fever * Patient developed a [...] The daughter is the healthcare power of copier repair technician. #History of dementia: On rivastigmine #Dyslipidemia: On statin #Benign essential hypertension: On lisinopril. DVT prophylaxis: * Resume Coumadin today. INR 1.8. Daughter still thinking about that she wants him to continue otherwise. Code status: DNRCCA no intubation * Disposition: Awaiting placement. PT OT on board. Charges/Coding Visit Charges Inpatient E&M: 17545 Subs Hosp L2 09/05/24 1615 <Electronically signed by Navid Dominguez MD> Cosigner Signature (if applicable): CC: ~ Signed [facility] Work Phone: 1(590) 951-113506-16-2025 Progress note [facility] Medical Records Department [address] [place] [address] Progress Note - Hospitalist 09/05/24 1607 MR#: [id number] Acct: [id number] Name: ROBY FLORES Radha Rep #:[id number] : 1935 89 From: Navid Trejo PCP: Dr. Stas Mora MD Status:AD M IN Location: [place]3 ND126-1 Reason for Visit Reason for Visit: Diagnoses [...] Clarity Clear, Urine pH 7.0, Ur Specific [place] 1.005, Urine Protein 15 H, Urine Glucose [...] 77.2 H, Lymph % (Auto) 9.8 L, [place]isk[place] % (Auto) 7.9, Eos % (Auto) 4.0, [...] explained to the patient and [facility] # Fever * Patient developed a [...] The daughter is the healthcare power of copier repair technician. #History of dementia: On rivastigmine #Dyslipidemia: On statin #Benign essential hypertension: On lisinopril. DVT prophylaxis: * Resume Coumadin today. INR 1.8. Daughter still thinking about that she wants him to continue otherwise. Code status: DNRCCA no intubation * Disposition: Awaiting placement. PT OT on board. Charges/Coding Visit Charges Inpatient E&M: 68734 Subs Hosp L2 09/05/24 1619 Cosigner Signature (if applicable): CC: ~ Signed [facility]06-15-2025 Progress note Author Kathy Wells [facility] Note Date/Time September 04, 2024 3:37 pm [facility] Medical Records Department [address] [place] [address] Progress Note 09/04/24 1412 MR#: [id number] Acct: [id number] Name: ROBY FLORES Rep #:[id number] : 1935 89 From: Kathy Wells MD PCP: Dr. Stas Mora MD Status:AD M IN Location: [place]3 RG385-9 Subjective Subjective Patient seen and examined. He [...] 78.0 H, Lymph % (Auto) 7.8 L, Siskiyou % (Auto) 7.7, Eos % (Auto) 5.3 [...] The daughter is the healthcare power of copier repair technician. * In light of patient's confusion in [...] on board. Charges/Coding Visit Charges Inpatient E&M: 58461 Subs Hosp L2 09/04/24 4126 <Electronically signed by Kathy Wells MD> Kathy Wells MD Cosigner Signature (if applicable): CC: ~ Signed [facility] Work Phone: 1(525) 257-209906-15-2025 Progress note [facility] Medical Records Department [address] [place] [address] Progress Note 09/04/24 1412 MR#: [id number] Acct: [id number] Name: ROBY FLORES Rep #:[id number] : 1935 89 From: Kathy Wells MD PCP: Dr. Stas Mora MD Status:AD M IN Location: [place] PC282-5 Subjective Subjective Patient seen and examined. He [...] 78.0 H, Lymph % (Auto) 7.8 L, [place] % (Auto) 7.7, Eos % (Auto) 5.3 [...] The daughter is the healthcare power of copier repair technician. * In light of patient's confusion in [...] on board. Charges/Coding Visit Charges Inpatient E&M: 70779 [facility] Hosp L2 09/04/24 8017 Kathy Wells MD Cosigner Signature (if applicable): CC: ~ Signed [facility]06-14-2025 Progress note Author Kathy Wells [facility] Note Date/Time September 03, 2024 6:29 pm [facility] Medical Records Department [address] [place] [address] Progress Note 09/03/24 1135 MR#: [id number] Acct: [id number] Name: ROBY FLORES Rep #:[id number] : 1935 89 From: Kathy Wells MD PCP: Dr. Stas Mora MD Status:AD M IN Location: [place] MR601-4 Subjective Subjective Patient seen and examined. He [...] 83.4 H, Lymph % (Auto) 6.7 L, [place] % (Auto) 6.0, Eos % (Auto) 2.8, [...] The daughter is the healthcare power of copier repair technician. * In light of patient's confusion in [...] on board. Charges/Coding Visit Charges Inpatient E&M: 26117 Subs Hosp L2 09/03/24 0766 <Electronically signed by Kathy Wells MD> Kathy Wells MD Cosigner Signature (if applicable): CC: ~ Signed [facility] Work Phone: 1(892) 518-179306-14-2025 Progress note [facility] Medical Records Department [address] [place] [address] Progress Note 09/03/24 1135 MR#: [id number] Acct: [id number] Name: ROBY FLORES Rep #:[id number] : 1935 89 From: Kathy Wells MD PCP: Dr. Stas Mora MD Status:AD M IN Location: MS3 XS930-0 Subjective Subjective Patient seen and examined. He was alert and communicative. He had no active complaints. He has remained hemodynamically stable. Review of systems otherwise negative. Objective Data Objective Data Vital Signs: Vital Signs Temp Pulse Resp BP Pulse Ox O2 Del Method O2 Flow Rate 98.2 F 96 22 H 154/104 H 94 Room Air 2 09/03/24 08:13 09/03/24 08:13 09/03/24 08:09/03/24 08:13 09/03/24 08:09/03/24 08:09/02/24 15:02 Oxygen Flow [...] 83.4 H, Lymph % (Auto) 6.7 L, [place]isk[place] % (Auto) 6.0, Eos % (Auto) 2.8, [...] The daughter is the healthcare power of copier repair technician. * In light of patient's confusion in [...] on board. Charges/Coding Visit Charges Inpatient E&M: 94448 Subs Hosp L2 09/03/24 7347 Kathy Wells MD Cosigner Signature (if applicable): CC: ~ Signed [facility]06-14-2025 Consult note Author Spike De La Cruz [facility] Note Date/Time September 03, 2024 3:49 pm [facility] Medical Records Department [address] [place] [address] Pharmacokinetic/Renal -Consult 09/03/24 1548 MR#: [id number] Acct: [id number] Name: ROBY FLORES Rep #:[id number] : 1935 89 From: Spike Maynard [facility] PCP: Dr. Stas Mora MD Status:AD M IN Location: [facility] YJ566-7 Consult Antibiotic Management Pharmacy has been consulted [...] Labs: Trough: Vancomycin (09/04/24 at 2130) 09/03/24 2707 <Electronically signed by Spike Angelo [facility]> Date _ Spike De La Cruz [facility] Cosigner Signature (if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 [facility]09[facility] History of Present illness Narrative* Stas [...] Coronary atherosclerosis of unspecified type of vessel, tunun[place] or graft Comment: Coronary artery disease No [...] done Covid-19 Vaccine(2022- season) due on 11/22/2023 Influenza Vaccine(1) due [...] Past Histories independently gathered by the clinical merchandise support associate and the remaining scribed note accurately describes [...] AM. 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 [facility] Miscellaneous Notes* Telephone Encounter - Coretta Jalloh RPh - 11/18/2023 4:30 PM EDT [facility] Ambulatory [facility]acy Anticoagulation Clinic Anticoagulation Episode Summary Anticoagulation Care Providers Provider Role Specialty Phone number Stas Mora MD Referring Family Medicine [phone] Roby Flores is a 88 year old [...] Pharmacy Anticoagulation Clinic Pharmacy Anticoagulation Clinic Pager: [phone]. documented in this encounterMary [facility]08-[facility]-2024 Telephone encounter Note * Telephone Encounter - Elvis Kearney APRN.CNP - 11/16/2023 9:39 AM EDT The following approved medication requests have been transmitted electronically. Requested Prescriptions Pending Prescriptions Disp Refills warfarin (COUMADIN) 1 mg tablet 30 tablet 5 Sig: Take 1 tablet by mouth once daily. Elvis Kearney APRN.CNP [facility]08-26-2024 Miscellaneous Notes* Telephone Encounter - Elvis [...] 16, 2023 9:00 AM documented in this encounterMary [facility]08-26-2024 Telephone encounter Note * Telephone Encounter [...] Shahid MA November 16, 2023 9:06 AM [facility]-26-[facility] Telephone encounter Note* Telephone Encounter - [...] Keke Rinaldi November 16, 2023 9:00 AM [facility]07-24-2024 Telephone encounter Note* Telephone Encounter - Coretta Jalloh RPh - 10/14/2023 4:21 PM EDT [facility] Ambulatory Pharmacy Anticoagulation Clinic Anticoagulation Episode Summary Anticoagulation Care Providers Provider Role Specialty Phone number Stas Mora MD Referring Family Medicine [phone] Roby Flores is a 88 year old [...] Pharmacy Anticoagulation Clinic Pharmacy Anticoagulation Clinic Pager: [phone]. [facility]07-24-[facility] Miscellaneous Notes* Telephone Encounter - Coretta Jalloh RPh - 10/14/2023 4:21 PM EDT [facility] Ambulatory Pharmacy Anticoagulation Clinic Anticoagulation Episode Summary Anticoagulation Care Providers Provider Role Specialty Phone number Stas Mora MD Referring Family Medicine [phone] Roby Flores is a 88 year old [...] Pharmacy Anticoagulation Clinic Pharmacy Anticoagulation Clinic Pager: [phone]. documented in this encounterMary [facility]06-26-2024 Telephone encounter Note * Telephone Encounter - Colleen Sommer RPh - 09/16/2023 11:15 AM EDT [facility] Ambulatory Pharmacy Anticoagulation Clinic Anticoagulation Episode Summary Anticoagulation Care Providers Provider Role Specialty Phone number Stas Mora MD Referring Family Medicine [phone] Roby Flores is a 88 year old [...] Pharmacy Anticoagulation Clinic Pharmacy Anticoagulation Clinic Pager: [phone]. [facility] Miscellaneous Notes* Telephone Encounter - Kemal Enrique Macias - 09/16/2023 11:15 AM EDT [facility] Ambulatory Pharmacy Anticoagulation Clinic Anticoagulation Episode Summary Anticoagulation Care Providers Provider Role Specialty Phone number Stas Mora MD Referring Family Medicine [phone] Roby Flores is a 88 year old [...] Pharmacy Anticoagulation Clinic Pharmacy Anticoagulation Clinic Pager: [phone]. documented in this encounterMary [facility]06-25-2024 Instructions* Patient Instructions* Rosie Cruz MA - 09/15/2023 8:48 AM EDT Starting Lasix (Furosemide) 20 mg once daily as needed. You can use the medication on days where swelling is increased. Elevate legs through out the day to help with swelling. Decrease sodium in diet. documented in this encounterMary [facility] Hospital06-25-2024 History of Present illness Narrative* Stas [...] Coronary atherosclerosis of unspecified type of vessel, tun[place] or graft Coronary artery disease Other and [...] Past Histories independently gathered by the clinical merchandise support associate and the remaining scribed note accurately describes [...] AM. Rosie Cruz MA documented in this encounterMary [facility]06-24-2024 Telephone encounter Note * Telephone Encounter [...] difficulty breathing Protocols used: Leg Swelling and [id number] [facility]06-24-2024 Miscellaneous Notes* Telephone Encounter - Marian [...] difficulty breathing Protocols used: Leg Swelling and [id number] * Telephone Encounter - Elana Valdes RN - 09/14/2023 2:52 PM EDT Called and left a voicemail for the Patient and on the Pts girlfriends phone to have the Pt call back and ask for a nurse to receive the providers message. We need more information about his bilateral leg swelling that he was scheduled for tomorrow. Elana Valdes RN documented in this encounterMary [facility] Hospital06-24-2024 Telephone encounter Note * Telephone Encounter [...] was scheduled for tomorrow. Elana Valdes RN [facility]06-12-2024 Telephone encounter Note* Telephone Encounter - Coretta Jalloh [facility] - 09/02/2023 3:08 PM EDT [facility] Ambulatory [facility]acy Anticoagulation Clinic Anticoagulation Episode Summary Anticoagulation Care Providers Provider Role Specialty Phone number Stas Mora MD Referring Family Medicine [phone] Roby Flores is a 88 year old [...] Pharmacy Anticoagulation Clinic Pharmacy Anticoagulation Clinic Pager: [phone]. 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 documented in this encounterMary [facility]05-29-[facility] Telephone encounter Note * Telephone Encounter - Coertta Jalloh RPh - 08/19/2023 5:09 PM EDT [facility] Anticoagulation Episode Summary Anticoagulation Care Providers Provider Role Specialty Phone number Stas Mora MD Referring Family Medicine [phone] Roby Flores is a 88 year old [...] Pharmacy Anticoagulation Clinic Pharmacy [facility] Pager: [phone]. [facility] Miscellaneous Notes* Telephone Encounter - Coretta Jalloh, [facility] - 08/19/2023 5:09 PM EDT [facility] Anticoagulation Episode Summary Anticoagulation Care Providers Provider Role Specialty Phone number Stas Mora MD Referring Family Medicine [phone] Roby Flores is a 88 year old [...] Pharmacy Anticoagulation Clinic Pharmacy Anticoagulation Clinic Pager: [phone]. documented in this encounterMary [facility]05-24-[facility] History of Present illness Narrative* Stas [...] thinks he is being sued by a [employer]ats[employer] and thathe was given a letter about it, doesn't know who the director consumer affairs is or where the [employer] is. states this is not true. He was looking for his brother who lives out of state, thought he was still staying with them, however he has not been up to [place] since Jan. No hallucinations. Is not leaving [...] Coronary atherosclerosis of unspecified type of vessel, [place] or graft Coronary artery disease Other and [...] Past Histories independently gathered by the clinical merchandise support associate and the remaining scribed note accurately describes [...] AM. Marta Palacio MA documented in this encounterMary [facility]05-[facility] Telephone encounter Note * Telephone Encounter - Coretta Jalloh, [facility] - 08/12/2023 4:27 PM EDT [facility] Anticoagulation Episode Summary Anticoagulation Care Providers Provider Role Specialty Phone number Stas Mora MD Referring Family Medicine [phone] Roby Flores is a 87 year old [...] Pharmacy Anticoagulation Clinic Pharmacy Antico[facility] Pager: [phone]. 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 documented in this encounterMary [facility]05-[facility] Telephone encounter Note * Telephone Encounter - Coretta Jalloh RPh - 08/05/2023 4:41 PM EDT [facility] Anticoagulation Episode Summary Anticoagulation Care Providers Provider Role Specialty Phone number Stas Mora MD Referring Family Medicine [phone] Roby Flores is a 87 year old [...] Pharmacy Anticoagulation Clinic Pharmacy [facility] Pager: [phone]. 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 [facility] Miscellaneous Notes* Telephone Encounter - Coretta Jalloh, [facility] - 07/22/2023 4:40 PM EDT [facility] Anticoagulation Episode Summary Anticoagulation Care Providers Provider Role Specialty Phone number Stas Mora MD Referring Family Medicine [phone] Roby Flores is a 87 year old [...] Pharmacy Anticoagulation Clinic Pharmacy Anticoagulation Clinic Pager: [phone]. documented in this encounterMary [facility]04-24-[facility] Telephone encounter Note * Telephone Encounter - Coretta Jalloh RPh - 07/15/2023 3:18 PM EDT [facility] Anticoagulation Episode Summary Anticoagulation Care Providers Provider Role Specialty Phone number Stas Mora MD Referring Family Medicine [phone] Roby Flores is a 87 year old [...] Pharmacy Anticoagulation Clinic Pharmacy Antico[facility] Pager: [phone]. [facility] Miscellaneous Notes* Telephone Encounter - Coretta Jalloh RPh - 07/15/2023 3:18 PM EDT [facility] Anticoagulation Episode Summary Anticoagulation Care Providers Provider Role Specialty Phone number Stas Mora MD Referring Family Medicine [phone] Roby Flores is a 87 year old [...] Pharmacy Anticoagulation Clinic Pharmacy Anticoagulation Clinic Pager: [phone]. 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 documented in this encounterMary [facility]04-04-2024 Telephone encounter Note * Telephone Encounter - Adrian ([employer] MixerElana Berry - 06/25/2023 5:14 PM EDT Images [...] remains on Remote TM list. Elana Campbell ([employer]) [facility] Miscellaneous Notes* Telephone Encounter - Adrian ([employer])Elana - 06/25/2023 5:14 PM EDT Images from [...] remains on Remote TM list. Elana Campbell ([employer]) * Telephone Encounter - Stas Mora MD - 06/25/2023 4:44 PM EDT It looks like my office became involved because the on-call doctor was called with his elevated INR. I would prefer he stay with the pharmacy for his routine monitoring. Stas Mora MD * Telephone Encounter - Adrian ([employer])Elana - 06/25/2023 4:03 PM EDT Pharm Phone [...] this time Please advise. Elana Campbell CPhT (Cone Machine Operator) Pharmacy Anticoagulation Clinic documented in this encounterMary [facility] Hospital04-04-2024 Telephone encounter Note * Telephone Encounter - Stas Mora MD - 06/25/2023 4:44 PM EDT It looks like my office became involved because the on-call doctor was called with his elevated INR. I would prefer he stay with the pharmacy for his routine monitoring. Stas Mora MD [facility] Telephone encounter Note* Telephone Encounter - Adrian HuangStarch And Prosize MixerElana Berry - 06/25/2023 4:03 PM EDT Pharm [...] this time Please advise. Elana Campbell CPhT (Cone Machine Operator) Pharmacy Anticoagulation [facility] Miscellaneous Notes* Telephone Encounter - Jason [...] with VKA drugs, such as warfarin, the [place] [employer] 2012 Guideline recommends [...] Chest 2012, 141:7S-47S Avel RA, et al. [facility] 2017, 70: 252-289 Confirmed that pt is taking 1 mg daily. No changes to diet, medications, missed or extra doses, etc. Keke Tsang MA documented in this encounterMary [facility] Hospital03-22-2024 Miscellaneous Notes* Telephone Encounter - Marta [...] no Rosie Cruz Ma documented in this encounterMary [facility]03-18-2024 Miscellaneous Notes* Telephone Encounter - Keke [...] Information or narrative: no documented in this encounterMary [facility] Hospital03-15-2024 Miscellaneous Notes* Telephone Encounter - Halina [...] went over notes below from Jenna Fitzpatrick INSURANCE REPRESENTATIVE. She said no change in his diet, [...] 6.9. Jenna Fitzpatrick APRN.CNP documented in this encounterMary [facility] Hospital03-15-2024 Miscellaneous Notes* Telephone Encounter - Marta [...] conference call with me. documented in this encounterMary [facility]03-15-2024 Miscellaneous Notes* Telephone Encounter - Marta [...] if patient calls them. documented in this encounterMary [facility]03-14-2024 Miscellaneous Notes* Telephone Encounter - Hortencia Winston RN - 06/04/2023 8:[address] Talampas has left messages for the patient to call back regarding a critical lab. documented in this encounterMary [facility] Hospital03-14-2024 Miscellaneous Notes* Telephone Encounter - Minda Solorzano, RN - 06/04/2023 12:51 PM EDT Spoke [...] you. 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 documented in this encounterMary [facility]03-11-2024 History of Present illness Narrative* Stas [...] Coronary atherosclerosis of unspecified type of vessel, [place] or graft Coronary artery disease Other and [...] unspecified vessel or lesion type, unspecified whether [place] or transplanted heart - ICD9: 414.00, ICD10: [...] Past Histories independently gathered by the clinical merchandise support associate and the remaining scribed note accurately describes [...] PM. Marta Palacio MA documented in this encounterMary [facility]03-06-2024 Miscellaneous Notes* Telephone Encounter - Coretta Jalloh, [facility] - 05/27/2023 2:23 PM EST [facility] Anticoagulation Episode Summary Anticoagulation Care Providers Provider Role Specialty Phone number Stas Mora MD Referring [facility] [phone] Robykaran Flores is a 87 year old year old male patient being evaluated today for a [facility] Pharmacy Anticoagulation Clinic Anticoagulation Episode Summary Anticoagulation Care Providers Provider Role Specialty Phone number Stas Mora MD Referring Family [facility] [phone] Roby Flores is a 87 year old [...] Pharmacy Anticoagulation Clinic Pharmacy Anticoagulation Clinic Pager: [phone]. 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 documented in this encounterMary [facility] Hospital02-14-2024 Miscellaneous Notes* Telephone Encounter - Coretta Jalloh RPh - 05/06/2023 3:14 PM EST [facility] Anticoagulation Episode Summary Anticoagulation Care Providers Provider Role Specialty Phone number Stas Mora MD Referring Family Medicine [phone] Roby Flores is a 87 year old [...] lab INR check scheduled on 05/13/2023 JENNIFER Jalloh [facility] Clinical Pharmacist, Pharmacy Anticoagulation Clinic Pharmacy Anticoagulation Clinic Pager: [phone]. documented in this encounterMary [facility]02-07-2024 Miscellaneous Notes* Telephone Encounter - Coretta Jalloh RPh - 04/29/2023 4:00 PM EST [facility] Anticoagulation Episode Summary Anticoagulation Care Providers Provider Role Specialty Phone number Stas Mora MD Referring Family Medicine [phone] Roby Flores is a 87 year old [...] Pharmacy Anticoagulation Clinic Pharmacy Anticoagulation Clinic Pager: [phone]. documented in this encounterMary [facility]12-01-2023 Miscellaneous Notes* Telephone Encounter - Elise Paredes RP - 02/20/2023 3:37 PM EST [facility] Anticoagulation Episode Summary Anticoagulation Care Providers Provider Role Specialty Phone number Stas Mora MD Referring Family Medicine [phone] Roby Flores is a 87 year old [...] Patient denies need for refills. Elise Paredes [facility] Clinical Pharmacist, Pharmacy Anticoagulation Clinic Pharmacy Anticoagulation Clinic Pager: [phone]. documented in this encounterMary [facility] Hospital11-28-2023 Miscellaneous Notes* Telephone Encounter - Franca [...] evaluation Stas Mora MD documented in this encounterMary [facility] Hospital11-28-2023 History of Present illness Narrative* Janelle [...] 17, 2023 7:43 AM documented in this encounterMary [facility] Hospital11-27-2023 History of Present illness Narrative* Stas Mora MD - 02/16/2023 2:00 PM EST Chief Complaint Patient presents with: ED Follow-up HPI Roby Flores is a 87 year old male who presents here today for ER Follow Up.. Pt went to the [facility] ER on 02/10/23 with c/o fatigue, weakness, [...] Recheck in 1 week. Below copied from [employer]: Chief Complaint: Fatigue Informant: patient Onset/Context/Timing Onset: [...] complaints. Patient denies any headaches. [facility] Narrative Medical decision making narrative: Differential diagnosis [...] Coronary atherosclerosis of unspecified type of vessel, [place] or graft Coronary artery disease Other and [...] Completed Pneumococcal Vaccine: 65+ Completed Data reviewed [facility] ER reports 02/10/23 ASSESSMENT/PLAN: 1. Cerebral infarction, [...] Past Histories independently gathered by the clinical merchandise support associate and the remaining scribed note accurately describes [...] PM. Marta Palacio Ma documented in this encounterMary [facility]11-24-2023 Miscellaneous Notes* Telephone Encounter - Elise Paredes, [facility] - 02/13/2023 3:56 PM EST [facility] Anticoagulation Episode Summary Anticoagulation Care Providers Provider Role Specialty Phone number Stas Mora MD Referring Family Medicine [phone] Roby Flores is a 87 year old [...] INR check scheduled on 02/20/2023 Elise Paredes [facility] Clinical Pharmacist, Pharmacy Anticoagulation Clinic Pharmacy Anticoagulation Clinic Pager: [phone]. 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 documented in this encounterMary [facility]09-01-2023 Miscellaneous Notes* Telephone Encounter - Jeimy Duong RPh - 11/21/2022 2:38 PM EDT [facility] Anticoagulation Episode Summary Anticoagulation Care Providers Provider Role Specialty Phone number Stas Mora MD Referring Family Medicine [phone] Roby Flores is a 87 year old [...] Pharmacy Anticoagulation Clinic Pharmacy Anticoagulation Clinic Pager: [phone]. documented in this encounterMary [facility] Hospital08-28-2023 Hospital Discharge instructions Patient Education 11/17/2022 [...] Wound changes colors Numbness around the wound [id number] [employer]. [address] [place] [address], [place] [address]. All rights reserved. This information is not [...] the ears or bruising around the eyes [phone] [employer]. [address] [place] [address]. All rights reserved. This information is not intended as a substitute for professional medical care. Always follow yourhealthcare professional's instructions. [facility] 11/17/2022 15:05:08 With:Call Physician Referral Address:Unknown When:2-4 days [facility] 08-28-2023 Note Discharge Instructions Thank you for allowing [facility] to assist you with your healthcare needs. [...] Wound changes colors Numbness around the wound [phone] [employer]. [address] [place] [address]. All rights reserved. This information is not [...] the ears or bruising around the eyes [phone] [employer]. [address] [place] [address], [place] [address]. All rights reserved. This information is not intended as a substitute for professional medical care. Always follow yourhealthcare professional's instructions. Additional Information VACCINATE! IT SAVES LIVES! Members of the community who have not yet received the COVID-19 vaccine and would like to receive it can visit one of [facility] vaccine clinics. There are many vaccine clinic locations within the [facility]. For locations and available times, please visit [email or web address] It is important to note that some COVID mobile vaccine clinics are held outdoors and may be canceled in rainy or stormy conditions. To learn more about pediatric vaccinations (ages 5-11), we invite you to visit the [facility] webpage. [email or web address]/[email or web address] stions.htmlTo learn more about the COVID-19 vaccine, we invite you to visit the CDC website for a list of frequently asked questions. https://www.cdc.gov/coronavirus/2019-ncov/vaccines/faq.html [facility] Patient Portal Access Instructions: Stay connected with your healthcare team and access your personal medical information anytime with the [facility] Patient Portal. If you would like a full copy of your medical records please contact the [facility] Medical Records Department Thursday through Thursday between 8a.m. and 4:30p.m. Please follow the directions below to access the portal: 1.Access the email account you provided upon registration to the hospital.2.Look for an invitation email from [facility].3.Open the email and access the invitation link: Accept Invitation to [facility]4.Fill in the required العلي to create your account. Sign into www.Local Motion with your username and password that you [...] you will allow to register on the [facility] Patient Portal for access to your information. You can also access the [facility] Patient Portal on the WorkSimple. Simply click on "Health Records" under "HealthData" and then click on the [employer] logo. HOW TO SAFELY DISPOSE OF PRESCRIPTION [...] Call your local pharmacy or go to [email or web address] to find one close to you.3.Make use of household items: Use cat litter or old coffee grounds to dispose medications if other options arenot available. Mix your drugs with these household products, seal them in an airtight container andthrow it into the garbage. Call [facility]: [phone] to be sure your drugs can be [...] aware that I should contact my doctor. 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 Signature: Date/Time: Relationship to Patient: Witness Name/Signature: Date/Time: [facility]08-28-2023 Note ORIGINAL EXAMINATION: CT OF [...] By: Silvestre Chaudhari MD Electronically signed By iSlvestre Chaudhari MD Dictated Date: 11/17/2022 4:24:43 PM Prelim Date: 11/17/2022 4:26:20 PM Sign Date: 11/17/2022 4:26:20 PM Ordering Provider: [facility]08-18-2023 Miscellaneous Notes* Telephone Encounter - Senia Phillips RPh - 11/07/2022 3:22 PM EDT [facility] Anticoagulation Episode Summary Anticoagulation Care Providers Provider Role Specialty Phone number Stas Mora MD Referring Family Medicine [phone] Roby Flores is a 87 year old [...] ALLERGIES No Known Allergies 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 documented in this encounterMary [facility] Hospital08-11-2023 Miscellaneous Notes* Telephone Encounter - Senia Phillips RPh - 10/31/2022 2:29 PM EDT Patient due to test INR today. Will continue to monitor for results. Senia Phillips RPh documented in this encounterMary [facility]an Hospital08-04-2023 Miscellaneous Notes* Telephone Encounter - Senia Phillips RPh - 10/24/2022 3:13 PM EDT [facility] Anticoagulation Episode Summary Anticoagulation Care Providers Provider Role Specialty Phone number Stas Mora MD Referring Family Medicine [phone] Roby Flores is a 87 year old [...] warfarin instructions: 2.5 mg every day Sent [employer] Machine[employer] message Advised patient to decrease total weekly regimen to better reflect overall dose given past few weeks Next lab INR check scheduled on 10/31/2022 Senia Phillips riya Clinical Pharmacist, Pharmacy Anticoagulation Clinic Pharmacy [facility] Pager: [phone]. documented in this encounterMary [facility] Hospital07-28-2023 Miscellaneous Notes* Telephone Encounter - Jason [...] Anticoagulation TE call from today by the [facility]. They spoke with pt at [phone] and gave pt instructions on what to do. 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 Yomi Wills [facility] Clinical Pharmacist, Pharmacy Anticoagulation Clinic Pharmacy Anticoagulation Clinic Pager: [phone]. documented in this encounterMary [facility]an Hospital07-07-2023 Miscellaneous Notes* Telephone Encounter - Jeimy Duong RPh - 09/26/2022 2:11 PM EDT [facility] Anticoagulation Episode Summary Anticoagulation Care Providers Provider Role Specialty Phone number Stas Mora MD Referring Family Medicine [phone] Roby Flores is a 87 year old [...] Pharmacy Anticoagulation Clinic Pharmacy Anticoagulation Clinic Pager: [phone]. 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 documented in this encounterMary [facility]an Hospital06-06-2023 Instructions* Patient Instructions* Marta Palacio Ma - 08/26/2022 1:36 PM EDT Please check your medications when you get home and make sure that your medications match our list. documented in this encounterMary [facility]an Hospital06-06-2023 History of Present illness Narrative* Stas Mora MD - 08/26/2022 1:20 PM EDT Medical B eligibilty date 1999 Date of last exam 09/05/2021 PAST MEDICAL HISTORY Diagnosis Date Coronary atherosclerosis of unspecified type of vessel, tununak or graft Coronary artery disease Other and [...] wishes: Yes I am willing to follow [place] advanced directives. Depression screen He in the [...] Past Histories independently gathered by the clinical merchandise support associate and the remaining scribed note accurately describes my personal service to the patient. Stas Mora MD The documentation for this note was completed by Marta Palacio Ma acting as scribe for Stas Mora MD. August 26, 2022 1:17 PM. Marta Palacio Ma documented in this encounterMary [facility]an Hospital06-02-2023 Miscellaneous Notes* Telephone Encounter - Senia Phillips [facility] - 08/22/2022 2:50 PM EDT [facility] Anticoagulation Episode Summary Anticoagulation Care Providers Provider Role Specialty Phone number Stas Mora MD Referring Family Medicine [phone] Roby Flores is a 87 year old [...] Fri; 2.5 mg all other days Sent Meteor message Advised patient to continue current weekly dose as noted above Next lab INR check scheduled on 08/29/2022 Senia Phillips RPh Clinical Pharmacist, Pharmacy Anticoagulation Clinic Pharmacy Anticoagulation Clinic Pager: [phone]. documented in this encounterMary [facility]an Hospital04-28-2023 Miscellaneous Notes* Telephone Encounter - Senia Phillips RPh - 07/18/2022 3:29 PM EDT [facility] Anticoagulation Episode Summary Anticoagulation Care Providers Provider Role Specialty Phone number Stas Mora MD Referring Family Medicine [phone] Roby Flores is a 86 year old [...] warfarin instructions: 2.5 mg every day Sent Meteor message Advised patient to continue current weekly dose as noted above Next lab INR check scheduled on 08/01/2022 Senia Phillips RPh Clinical Pharmacist, Pharmacy Anticoagulation Clinic Pharmacy Anticoagulation Clinic Pager: [phone]. 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 documented in this encounterMary [facility]an Hospital04-03-2023 Miscellaneous Notes* Telephone Encounter - Elvis Kearney APRN.CCU NURSE - 06/23/2022 10:17 AM EDT The following approved medication requests have been transmitted electronically. Requested Prescriptions Pending Prescriptions Disp Refills warfarin (COUMADIN) 2.5 mg tablet [Pharmacy Med Name: WARFARIN SODIUM 2.5 MG TABLET] 135 tablet 3 Sig: TAKE 5 MG EVERY MON, DIXIE 2.5 MG ALL OTHER DAYS Elvis Kearney APRN.CNP documented in this encounterMary [facility]an Hospital03-31-2023 Miscellaneous Notes* Telephone Encounter - Seniarachel Phillips [facility] - 06/20/2022 4:46 PM EDT [facility] Anticoagulation Episode Summary Anticoagulation Care Providers Provider Role Specialty Phone number Stas Mora MD Referring Family Medicine [phone] Roby Flores is a 86 year old [...] Pharmacy Anticoagulation Clinic Pharmacy Anticoagulation Clinic Pager: [phone]. documented in this encounterMary [facility]an Hospital03-17-2023 Miscellaneous Notes* Telephone Encounter - Senia Phillips RPh - 06/06/2022 4:18 PM EDT [facility] Anticoagulation Episode Summary Anticoagulation Care Providers Provider Role Specialty Phone number Stas Mora MD Referring Family Medicine [phone] Roby Flores is a 86 year old [...] warfarin instructions: 2.5 mg every day Sent Meteor message Advised patient to continue current weekly dose as noted above Next lab INR check scheduled on 06/20/2022 Senia Phillips RPh Clinical Pharmacist, Pharmacy Anticoagulation Clinic Pharmacy Anticoagulation Clinic Pager: [phone]. documented in this encounterMary [facility]an Hospital03-10-2023 Miscellaneous Notes* Telephone Encounter - Neeru Rice LPN - 05/30/2022 3:02 PM EST Pharmacists manage INR documented in this encounterMary Rutan Hospital03-02-2023 Miscellaneous Notes* Telephone Encounter - Halina [...] you. Jenna Fitzpatrick APRN.SHEMAR documented in this encounterMary [facility]an Hospital03-01-2023 Miscellaneous Notes* Telephone Encounter - Judy [...] hip/leg 10. : na Protocols used: Hip [id number], Hip [id number] documented in this encounterMary Rutan Hospital03-01-2023 Miscellaneous Notes* Telephone Encounter - Fani Grace RN - 05/21/2022 12:22 PM EST Patient disconnected during transferred, called multiple time with no answer. documented in this encounterMary [facility]an Hospital02-27-2023 Miscellaneous Notes* Telephone Encounter - Paige Hickman RP - 05/19/2022 4:31 PM EST Spoke with [...] instructions. Franca Cohen LPN documented in this encounterMary Rutan Hospital02-24-2023 Miscellaneous Notes* Telephone Encounter - Senia Phillips RPh - 05/16/2022 5:10 PM EST Patient due to test INR today. Will continue to monitor for results. Senia Phillips RPh documented in this encounterMary [facility]an Hospital02-10-2023 Miscellaneous Notes* Telephone Encounter - Senia Phillips RPh - 05/02/2022 3:06 PM EST [facility] Anticoagulation Episode Summary Anticoagulation Care Providers Provider Role Specialty Phone number Stas Mora MD Referring Family Medicine [phone] Roby Flores is a 86 year old year old male patient being evaluated today for a Telemanagement visit. Patient is currently on the following anticoagulant(s) Warfarin. Labs PT INR (no units) Date Value 05/15/2021 2.3 04/17/2021 1.9 03/13/2021 Test sent to [facility]. 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 documented in this encounterMary [facility]an Hospital01-27-2023 Miscellaneous Notes* Telephone Encounter - Senia Phillips RPh - 04/18/2022 4:25 PM EST [facility] Anticoagulation Episode Summary Anticoagulation Care Providers Provider Role Specialty Phone number Stas Mora MD Referring Family Medicine [phone] Roby Flores is a 86 year old year old male patient being evaluated today for a Telemanagement visit. Patient is currently on the following anticoagulant(s) Warfarin. Labs PT INR (no units) Date Value 05/15/2021 2.3 04/17/2021 1.9 03/13/2021 Test sent to [facility]. 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 documented in this encounterMary [facility]an Hospital01-13-2023 Miscellaneous Notes* Telephone Encounter - Elise Paredes RPh - 04/04/2022 4:09 PM EST [facility] Anticoagulation Episode Summary Anticoagulation Care Providers Provider Role Specialty Phone number Stas Mora MD Referring Family Medicine [phone] Roby Flores is a 86 year old year old male patient being evaluated today for a Lab INR. Patient is currently on the following anticoagulant(s) Warfarin. Labs PT INR (no units) Date Value 05/15/2021 2.3 04/17/2021 1.9 03/13/2021 Test sent to [facility]. INR (no units) Date Value 04/04/2022 [...] getting labs every 2 weeks Elise Paredes [facility] Clinical Pharmacist, Pharmacy Anticoagulation Clinic Pharmacy Anticoagulation Clinic Pager: [phone]. documented in this encounterMary Rutan Hospital01-09-2023 Miscellaneous Notes* Telephone Encounter - Rosie Cruz Ma - 03/31/2022 5:12 PM EST Office received continuity of care paperwork from the [facility] requesting pt's last OV, labs and Imm. PerPCP okay to fax back requested records. Faxed back to [facility] at F#: [phone]. Rosie Cruz Ma documented in this encounterMary Rutan Hospital12-30-2022 Miscellaneous Notes* Telephone Encounter - Carmelina Cruz [facility] - 03/21/2022 4:05 PM EST [facility] Anticoagulation Episode Summary Anticoagulation Care Providers Provider Role Specialty Phone number Stas Mora MD Referring Family Medicine [phone] Roby Flores is a 86 year old year old male patient being evaluated today for a Telemanagement visit. Patient is currently on the following anticoagulant(s) Warfarin. Labs PT INR (no units) Date Value 05/15/2021 2.3 04/17/2021 1.9 03/13/2021 Test sent to [facility]. INR (no units) Date Value 03/21/2022 [...] 2.5 mg every day; Starting 03/21/2022 Sent Meteor message Advised patient to continue current weekly dose as noted above Next home INR check scheduled on 04/04/2022 Carmelina Cruz RPh Clinical Pharmacist, Pharmacy Anticoagulation Clinic Pharmacy Anticoagulation Clinic Pager: [phone]. * Telephone Encounter - Carmelina Cruz RPh - 03/21/2022 3:12 PM EST Patient due to test INR today. Will continue to monitor for results. Carmelina Cruz RPh documented in this encounterMary [facility]an Hospital12-02-2022 Miscellaneous Notes* Telephone Encounter - Oliva [...] whatever he wanted to. documented in this encounterMary Rutan Hospital10-31-2022 Miscellaneous Notes* Telephone Encounter - Paige Hickman RPh - 01/20/2022 3:55 PM EDT [facility] Anticoagulation Episode Summary Anticoagulation Care Providers Provider Role Specialty Phone number Stas Mora MD Referring Family Medicine [phone] Roby Flores is a 86 year old year old male patient being evaluated today for a Telemanagement visit. Patient is currently on the following anticoagulant(s) Warfarin. Labs PT INR (no units) Date Value 05/15/2021 2.3 04/17/2021 1.9 03/13/2021 Test sent to [facility]. INR (no units) Date Value 01/20/2022 [...] instructed to call [facility] at [phone] with any questionsor concerns. Paige Hcikman RPh Clinical Pharmacist, Pharmacy Anticoagulation Clinic Pharmacy Anticoagulation Clinic Pager: [phone] documented in this encounterMary Rutan Hospital10-28-2022 Miscellaneous Notes* Telephone Encounter - Senia [...] the providers message. Sent information as a [employer]t message as well. Elana Valdes RN * [...] to contact patient with no answer at [phone]. Current dose of coumadin is: 2.5 mg every day . Previous INR (date and result): 01/03/22 2.4 documented in this encounterMary [facility]an Hospital10-24-2022 Miscellaneous Notes* Telephone Encounter - Jenna [...] advise. López Mckenna LPN documented in this encounterMary Rutan Hospital10-14-2022 Miscellaneous Notes* Telephone Encounter - Senia Phillips RPh - 01/03/2022 4:11 PM EDT [facility] Anticoagulation Episode Summary Anticoagulation Care Providers Provider Role Specialty Phone number Stas Mora MD Referring Family Medicine [phone] Roby Flores is a 86 year old year old male patient being evaluated today for a Telemanagement visit. Patient is currently on the following anticoagulant(s) Warfarin. Labs PT INR (no units) Date Value 05/15/2021 2.3 04/17/2021 1.9 03/13/2021 Test sent to [facility]. 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 documented in this encounterMary Rutan Hospital10-14-2022 Miscellaneous Notes* Telephone Encounter - Marta Palacio Ma - 01/03/2022 10:49 AM EDT Pt notified of results via Meteor. Marta Palacio Ma * Telephone Encounter - Stas Mora MD - 01/02/2022 6:07 PM EDT Please notify patient that his thyroid ultrasound looks OK, the nodules are all small, appear normal, and do not need any further evaluation pr follow up. Stas Mora MD documented in this encounterMary Rutan Hospital10-06-2022 History of Present illness Narrative* Stas [...] about 1-2 hours. Pt was admitted to [facility] ER 12/21/21 with stroke sx however sx [...] in the last year. Below copied from [facility]: HPI History of Present Illness Chief Complaint: [...] extremities. 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 Dorsi and plantar flexion intact. [...] symptoms resolved. Hospital Course: 1. TIA/paroxysmal A. djn-1-udff-old male presented with right-sided weakness and aphasia, [...] Coronary atherosclerosis of unspecified type of vessel, tununak or graft Coronary artery disease Other and [...] 12/06/2024 ADVANCE DIRECTIVE DISCUSSION Completed Data reviewed [facility] reports from 10/21/21-10/22/21 ASSESSMENT/PLAN: 1. Hospital discharge [...] unspecified vessel or lesion type, unspecified whether tununak or transplanted heart - ICD9: 414.00, ICD10: I25.10 Continue current medications. Follow up in Dec as scheduled with fasting labs prior. I agree with the Chief Complaint, ROS, and Past Histories independently gathered by the clinical merchandise support associate and the remaining scribed note accurately describes [...] AM. Marta Palacio Ma documented in this encounterMary Rutan Hospital09-30-2022 Miscellaneous Notes* Telephone Encounter - Senia Phillips [facility] - 12/20/2021 4:39 PM EDT [facility] Anticoagulation Episode Summary Anticoagulation Care Providers Provider Role Specialty Phone number Stas Mora MD Referring Family Medicine [phone] Roby Flores is a 86 year old year old male patient being evaluated today for a Telemanagement visit. Patient is currently on the following anticoagulant(s) Warfarin. Labs PT INR (no units) Date Value 05/15/2021 2.3 04/17/2021 1.9 03/13/2021 Test sent to [facility]. 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 documented in this encounterMary Rutan Hospital09-16-2022 Miscellaneous Notes* Telephone Encounter - Senia Phillips RPh - 12/06/2021 4:29 PM EDT [facility] Anticoagulation Clinic Anticoagulation Episode Summary Anticoagulation Care Providers Provider Role Specialty Phone number Stas Mora MD Referring [facility] [phone] Roby Flores is a 86 year old year old male patient being evaluated today for a Telemanagement visit. Patient is currently on the following anticoagulant(s) Warfarin. Labs PT INR (no units) Date Value 05/15/2021 2.3 04/17/2021 1.9 03/13/2021 Test sent to [facility]. 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 [facility] Miscellaneous Notes* Telephone Encounter - Janice Huang RPh - 11/22/2021 5:17 PM EDT [facility] Anticoagulation Episode Summary Anticoagulation Care Providers Provider Role Specialty Phone number Stas Mora MD Referring [facility] [phone] Roby Flores is a 86 year old year old male patient being evaluated today for a Telemanagement visit. Patient is currently on the following anticoagulant(s) Warfarin. Labs PT INR (no units) Date Value 05/15/2021 2.3 04/17/2021 1.9 03/13/2021 Test sent to [facility]. INR (no units) Date Value 11/22/2021 [...] Advised pt to Call Coumadin Clinic at [phone] to confirm dosing and follow-up Janice Huang [facility] Clinical Pharmacist, Pharmacy Anticoagulation Clinic Pharmacy Anticoagulation Clinic Pager: [phone]. documented in this encounterMary [facility]08-19-2022 Miscellaneous Notes* Telephone Encounter - Senia PhillipsEnrique - 11/08/2021 5:01 PM EDT [facility] Anticoagulation Episode Summary Anticoagulation Care Providers Provider Role Specialty Phone number Stas Mora MD Referring [facility] [phone] Roby Flores is a 86 year old year old male patient being evaluated today for a Telemanagement visit. Patient is currently on the following anticoagulant(s) Warfarin. Labs PT INR (no units) Date Value 05/15/2021 2.3 04/17/2021 1.9 03/13/2021 Test sent to [facility]. INR (no units) Date Value 11/08/2021 [...] warfarin instructions: 2.5 mg every day Sent Meteor message Advised patient to continue current weekly dose as noted above Next lab INR check scheduled on 11/22/2021 Senia Phillips RPh Clinical Pharmacist, Pharmacy Anticoagulation Clinic Pharmacy Anticoagulation Clinic Pager: [phone]. documented in this encounterMary [facility] Hospital08-05-2022 Miscellaneous Notes* Telephone Encounter - Janice Huang RPh - 10/25/2021 4:16 PM EDT [facility] Anticoagulation Episode Summary Anticoagulation Care Providers Provider Role Specialty Phone number Stas Mora MD Referring [facility] [phone] Roby Flores is a 86 year old year old male patient being evaluated today for a Telemanagement visit. Patient is currently on the following anticoagulant(s) Warfarin. Labs PT INR (no units) Date Value 05/15/2021 2.3 04/17/2021 1.9 03/13/2021 Test sent to [facility]. INR (no units) Date Value 10/25/2021 [...] Pharmacy Anticoagulation Clinic Pharmacy Anticoagulation Clinic Pager: [phone] . documented in this encounterMary [facility]07-08-2022 Miscellaneous Notes* Telephone Encounter - Elana Campbell ([employer]) - 09/27/2021 4:50 PM EDT PATIENT CALL Patient called call center regarding results. Patient called and stated he had his INR checked today (09/27) and it was 2.3. Patient can be called at [phone] with any questions or sent [facility] message if result is within range. PT INR (no units) Date Value 05/15/2021 2.3 04/17/2021 1.9 03/13/2021 Test sent to [facility]. INR (no units) Date Value 09/27/2021 2.3 09/13/2021 2.7 08/30/2021 2.1 Elana Campbell ([employer]) * Telephone Encounter - Yomi Wills RPh - 09/27/2021 6:28 AM EDT Patient due to test INR today. Will continue to monitor for results. Yomi Wills RPh documented in this encounterMary [facility] Hospital06-24-2022 Miscellaneous Notes* Telephone Encounter - Senia Phillips RPh - 09/13/2021 4:11 PM EDT [facility] Clinic Anticoagulation Episode Summary Anticoagulation Care Providers Provider Role Specialty Phone number Stas Mora MD Referring [facility] [phone] Roby Flores is a 86 year old year old male patient being evaluated today for a Telemanagement visit. Patient is currently on the following anticoagulant(s) Warfarin. Labs PT INR (no units) Date Value 05/15/2021 2.3 04/17/2021 1.9 03/13/2021 Test sent to [facility]. INR (no units) Date Value 09/13/2021 [...] result of 2.7 is therapeutic Plan: Sent Meteor message Advised patient to continue current weekly dose Next lab INR check scheduled on 09/27/2021 Senia Phillips RPh Clinical Pharmacist, Pharmacy Anticoagulation Clinic Pharmacy Anticoagulation Clinic Pager: [phone] . documented in this encounterMary [facility]06-16-2022 History of Present illness Narrative* Stas Mora MD - 09/05/2021 11:20 AM EDT Medical B eligibilty date 1999 Date of last exam 08/28/2020 PAST MEDICAL HISTORY Diagnosis Date Coronary atherosclerosis of unspecified type of vessel, [place] or graft Coronary artery disease Other and [...] his POA. I am willing to follow [place] advanced directives. Depression screen He in the [...] to remember the following three words: Banana, [place] and Chair Visuospatial/Executive Functioning: Clock drawin/2 (Normal [...] Past Histories independently gathered by the clinical merchandise support associate and the remaining scribed note accurately describes my personal service to the patient. Stas Mora MD The documentation for this note was completed by Rosie Cruz Ma acting as scribe for Stas Mora MD. September 05, 2021 11:33 AM. Rosie Cruz Ma documented in this encounterMary [facility]an Hospital06-10-2022 Miscellaneous Notes* Telephone Encounter - Senia Phillips RPh - 08/30/2021 5:10 PM EDT [facility] Anticoagulation Episode Summary Anticoagulation Care Providers Provider Role Specialty Phone number Stas Mora MD Referring [facility] [phone] Roby Flores is a 86 year old year old male patient being evaluated today for a Telemanagement visit. Patient is currently on the following anticoagulant(s) Warfarin. Labs PT INR (no units) Date Value 05/15/2021 2.3 04/17/2021 1.9 03/13/2021 Test sent to [facility]. 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 documented in this encounterMary [facility] Hospital06-10-2022 Miscellaneous Notes* Telephone Encounter - Jenna Fitzpatrick APRN.CNP - 08/30/2021 8:56 AM EDT Needs order for PT/INR, order signed. Jenna Fitzpatrick APRN.SHEMAR documented in this encounterMary [facility]an Hospital05-27-2022 Miscellaneous Notes* Telephone Encounter - Rosie Cruz Ma - 08/16/2021 2:18 PM EDT INR has been reviewed in another encounter. Rosie Cruz Ma documented in this encounterMary [facility] Hospital05-13-2022 Miscellaneous Notes* Telephone Encounter - Senia Phillips RPh - 08/02/2021 4:11 PM EDT [facility] Anticoagulation Episode Summary Anticoagulation Care Providers Provider Role Specialty Phone number Stas Mora MD Referring [facility] [phone] Roby Flores is a 85 year old year old male patient being evaluated today for a Telemanagement visit. Patient is currently on the following anticoagulant(s) Warfarin. Labs PT INR (no units) Date Value 05/15/2021 2.3 04/17/2021 1.9 03/13/2021 Test sent to [facility]. 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 documented in this encounterMary [facility] Hospital04-27-2022 Miscellaneous Notes* Telephone Encounter - Rosie [...] months Stas Mora MD documented in this encounterMary [facility]an Hospital04-25-2022 Miscellaneous Notes* Telephone Encounter - Elvis Kearney APRN.CNP - 07/15/2021 12:39 PM EDT The following approved medication requests have been transmitted electronically. Pending Prescriptions Disp Refills WARFARIN 2.5 MG TABLET 135 tablet 3 Sig: TAKE 5 MG EVERY MON, DIXIE 2.5 MG ALL OTHER DAYS MESFIN: No Elvis Kearney APRN.CNP documented in this encounterMary [facility]an Hospital04-18-2022 History of Present illness Narrative* Stas [...] SOB. No swelling in feet orankles. 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 Taking Fosinopril 10 mg daily. Lipid: Taking [...] Coronary atherosclerosis of unspecified type of vessel, [place] or graft Coronary artery disease Other and [...] unspecified vessel or lesion type, unspecified whether [place] or transplanted heart - ICD9: 414.00, ICD10: [...] Past Histories independently gathered by the clinical merchandise support associate and the remaining scribed note accurately describes [...] AM. Marta Palacio Ma documented in this encounterMary [facility]an Hospital04-13-2022 Miscellaneous Notes* Telephone Encounter - Coretta Jalloh, [facility] - 07/03/2021 3:40 PM EDT [facility] Anticoagulation Episode Summary Anticoagulation Care Providers Provider Role Specialty Phone number Stas Mora MD Referring [facility] [phone] Roby Flores is a 85 year old year old male patient being evaluated today for a Lab INR. Patient is currently on the following anticoagulant(s) Warfarin. Labs PT INR (no units) Date Value 05/15/2021 2.3 04/17/2021 1.9 03/13/2021 Test sent to [facility]. INR (no units) Date Value 07/03/2021 4.5 06/12/2021 3.5 Creatinine (mg/dL) Date Value 03/13/2021 0.80 08/28/2020 0.83 Bilirubin, Total (mg/dL) Date Value 03/13/2021 0.5 ALT (U/L) Date Value 03/13/2021 24 AST (U/L) Date Value 03/13/2021 24 CrCl cannot be calculated (Unknown ideal weight.). 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 * Telephone Encounter - Marta Palacio Ma - 07/03/2021 3:05 PM EDT INR 4.5. Results routed to pharmacist who Handles pt coumadin. Marta Palacio Ma documented in this encounterMary [facility]an Hospital03-23-2022 Miscellaneous Notes* Telephone Encounter - Coretta Jalloh RPh - 06/12/2021 3:20 PM EDT [facility] Anticoagulation Episode Summary Anticoagulation Care Providers Provider Role Specialty Phone number Stas Mora MD Referring [facility] [phone] Roby Flores is a 85 year old year old male patient being evaluated today for a Lab INR. Patient is currently on the following anticoagulant(s) Warfarin. Labs PT INR (no units) Date Value 05/15/2021 2.3 04/17/2021 1.9 03/13/2021 Test sent to [facility]. INR (no units) Date Value 06/12/2021 [...] lab INR check scheduled on 07/03 in [place]. Patient verbalizes understanding of the plan. Patient denies need for refills. Coretta Jalloh RPh Clinical Pharmacist, Pharmacy Anticoagulation Clinic Pharmacy Anticoagulation Clinic Pager: [phone] . * Telephone Encounter - Rosie Cruz Ma - 06/12/2021 3:08 PM EDT Pt's INR results have finalized. Routing to pharm to review and advise. Rosie Cruz Ma documented in this encounterMary [facility]an Hospital12-21-2020 History of Present illness Narrative* Hussein [...] 12, 2020 5:01 PM documented in this encounterMary Rutan HospitalDischarge summary Author Inderjit Gillespie [facility] Note Date/Time September 01, 2024 10:2 5am [facility] Medical Records Department [address] [place] [address] Emergency Department Summary 09/01/24 MR#: [id number] Acct: [id number] Name: ROBY FLORES Rep #:[id number] : [...] shoulders elbows and wrist. 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 Neurologically he is awake alert. Answering [...] 87.5 H Lymph % (Auto) 4.8 L [place] % (Auto) 5.7 Eos % (Auto) 1.2 [...] Clarity Clear Urine pH 8.0 Ur Specific [place] 1.010 Urine Protein 15 H Urine Glucose [...] No fracture or dislocation present. Reading Location: [facility]--[address] 09/01/24 09:05 IMPRESSION: Cerebral atrophy. Mucosal thickening of the ethmoid sinuses as well as opacification of the left maxillary sinus. Reading Location: [facility]-IR-1 Chest X-Ray 09/01/24 09:25 IMPRESSION: No acute abnormality is seen. Reading Location: [facility]-IR-1 Chest x-ray, 2 views, AP and [...] to thrive Disposition Disposition: Acute Care Hospital [facility] What to do if you have Problems For any increased pain, shortness of breath, bleeding, nausea or vomiting, chestpain, or any unexpected problems, contact your Primary Care Provider. Call [facility] ([phone]) or report to the closest Emergency Room. Call 911 if necessary. 09/01/24 1025 <Electronically signed by Inderjit Gillespie MD> Cosigner Signature (if applicable): CC: Dr. 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 Long-term (current) use of anticoagulants Paroxysmal atrial fibrillation (HCC) Atrial fibrillation [facility] encounter [facility]* Diagnosis assisted current use of anticoagulant- Primary Long-term (current) use of anticoagulants Paroxysmal atrial fibrillation (HCC) Atrial fibrillation documented [facility] this encounter [facility]* Diagnosis Essential hypertension, benign- Primary Atherosclerosis 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, unspecified vessel or lesion type, unspecified whether [place] or transplanted heart Paroxysmal atrial fibrillation (HCC) Atrial fibrillation Primary osteoarthritis of both knees Primary localized osteoarthrosis, lower leg [facility] Atherosclerosis 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, unspecified vessel or lesion type, unspecified whether [place] or transplanted heart- Primary Essential hypertension, benign [facility]* 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 Long-term (current) use of anticoagulants Paroxysmal atrial fibrillation (HCC) Atrial fibrillation documented [facility] this encounter [facility]* Diagnosis Elevated INR- Primary Abnormal coagulation profile [facility]* 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 Long-term (current) use of anticoagulants Paroxysmal atrial fibrillation (HCC) Atrial fibrillation [facility]* Diagnosis Encounter for Medicare annual wellness exam- Primary Routine general medical examination at a health care facility Paroxysmal atrial fibrillation (HCC) Atrial fibrillation Essential hypertension, benign [facility]* Diagnosis assisted current use of anticoagulant- Primary Long-term (current) use of anticoagulants Encounter for monitoring Coumadin therapy Encounter for therapeutic drug monitoring [facility]* 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 Long-term (current) use of anticoagulants Paroxysmal atrial fibrillation (HCC) Atrial fibrillation documented in this encounter [facility] note* Diagnosis assisted current use of anticoagulant- Primary Long-term (current) use of anticoagulants Paroxysmal atrial fibrillation (HCC) Atrial fibrillation documented in this encounter [facility] note* Diagnosis Onset Date Resolution Status Chronic anticoagulation acut e TIA (transient ischemic attack) acute CAD (coronary artery disease) [facility] Work Phone: Evaluation note* Diagnosis Onset Date Resolution Status Chronic anticoagulation acut e Stroke-like symptoms acute TIA (transient ischemic attack) acute CAD (coronary artery disease) [facility] Work Phone: Evaluation note* Diagnosis Hospital discharge follow-up- Primary Other follow-up examination Encounter for immunization Need for other specified prophylactic vaccination against single bacterial disease TIA (transient ischemic attack) Unspecified transient cerebral ischemia Thyroid nodule Nontoxic uninodular goiter Essential hypertension, benign Paroxysmal atrial fibrillation (HCC) Atrial fibrillation Atherosclerosis 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, unspecified vessel or lesion type, unspecified whether [place] or transplanted heart documented in this encounter [facility] note* 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 Long-term (current) use of anticoagulants Paroxysmal atrial fibrillation (HCC) Atrial fibrillation documented in this encounter [facility] note* 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 Long-term (current) use of anticoagulants Paroxysmal atrial fibrillation (HCC) Atrial fibrillation documented in this encounter [facility] note* Diagnosis assisted current use of anticoagulant- Primary Long-term (current) use of anticoagulants Paroxysmal atrial fibrillation (HCC) Atrial fibrillation documented in this encounter [facility] note* Diagnosis Encounter for Medicare annual wellness exam- Primary Routine general medical examination at a [facility] facility Paroxysmal atrial fibrillation (HCC) Atrial fibrillation Essential hypertension, benign Hyperlipidemia, unspecified hyperlipidemia type documented in this encounter [facility]* Diagnosis assisted current use of anticoagulant- Primary Long-term (current) use of anticoagulants Paroxysmal atrial fibrillation (HCC) Atrial fibrillation documented in this encounter [facility] note* Diagnosis assisted current use of anticoagulant- Primary Long-term (current) use of anticoagulants Paroxysmal atrial fibrillation (HCC) Atrial fibrillation documented in this encounter [facility] note* 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 Long-term (current) use of anticoagulants Paroxysmal atrial fibrillation (HCC) Atrial fibrillation [facility]* Diagnosis assisted current use of anticoagulant- Primary Long-term (current) use of anticoagulants Paroxysmal atrial fibrillation (HCC) Atrial fibrillation documented in this encounter [facility] noteNo assessment information availableWMercy [facility] Work Phone: Evaluation note* 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 Long-term (current) use of anticoagulants Paroxysmal atrial fibrillation (HCC) Atrial fibrillation documented in this encounter [facility] note* Diagnosis Cerebral infarction, unspecified mechanism (HCC)- Primary Generalized weakness Other malaise and fatigue Speech disturbance, unspecified type Hyperlipidemia, unspecified hyperlipidemia type Essential hypertension, benign Paroxysmal atrial fibrillation (HCC) Atrial fibrillation [facility]* Diagnosis Cerebral infarction, unspecified mechanism (HCC) documented in this encounter [facility] note* 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 Long-term (current) use of anticoagulants Paroxysmal atrial fibrillation (HCC) Atrial fibrillation [facility]* Diagnosis Essential hypertension, benign- Primary Paroxysmal atrial fibrillation (HCC) Atrial fibrillation Atherosclerosis 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, unspecified vessel or lesion type, unspecified whether [place] or transplanted heart Hyperlipidemia, unspecified hyperlipidemia type History of stroke with 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 Speech disturbance, unspecified type documented in this encounter [facility] note* Diagnosis Abnormal CBC- Primary Other abnormal blood chemistry documented in this encounter [facility] note* Diagnosis assisted current use of anticoagulant- Primary Long-term (current) use of anticoagulants Paroxysmal atrial fibrillation (HCC) Atrial fibrillation documented in this encounter [facility] note* Diagnosis assisted current use of anticoagulant- Primary Long-term (current) use of anticoagulants Paroxysmal atrial fibrillation (HCC) Atrial fibrillation documented in this encounter [facility] note* 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 Long-term (current) use of anticoagulants Paroxysmal atrial fibrillation (HCC) Atrial fibrillation [facility]* 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 Long-term (current) use of anticoagulants Paroxysmal atrial fibrillation (HCC) Atrial fibrillation documented in this encounter [facility] note* Diagnosis 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, psychotic disturbance, mood disturbance, or anxiety (HCC)- Primary Essential hypertension, benign Paroxysmal atrial fibrillation (HCC) Atrial fibrillation documented [facility] this encounter [facility]* Diagnosis Edema of both lower legs- Primary [facility]* Diagnosis assisted current use of anticoagulant- Primary Long-term (current) use of anticoagulants Paroxysmal atrial fibrillation (HCC) Atrial fibrillation documented [facility] this encounter [facility]* Diagnosis assisted current use of anticoagulant Long-term (current) use of anticoagulants Paroxysmal atrial fibrillation (HCC) Atrial fibrillation documented in this encounter [facility]* Diagnosis Essential hypertension, benign- Primary Hyperlipidemia, unspecified hyperlipidemia type Edema of both lower legs Paroxysmal atrial fibrillation (HCC) Atrial fibrillation History of stroke with 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, psychotic disturbance, mood disturbance, or anxiety (HCC) Urinary frequency Abnormal CBC Other abnormal blood chemistry documented in this encounter [facility]* 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 Long-term (current) use of anticoagulants Paroxysmal atrial fibrillation (HCC) Atrial fibrillation [facility] this encounter [facility]* Diagnosis assisted current use of anticoagulant- Primary Long-term (current) use of anticoagulants Paroxysmal atrial fibrillation (HCC) Atrial fibrillation [facility] Diagnosis Left hip pain Pain in joint, pelvic region and thigh [facility]* 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 Long-term (current) use of anticoagulants Paroxysmal atrial fibrillation (HCC) Atrial fibrillation [facility] Diagnosis Acute right-sided low back pain, unspecified whether sciatica present [facility] Diagnosis Paroxysmal atrial fibrillation (HCC)- Primary Atrial fibrillation [facility]* Diagnosis assisted current use of anticoagulant- Primary Long-term (current) use of anticoagulants Paroxysmal atrial fibrillation (HCC) Atrial fibrillation [facility] 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 Long-term (current) use of anticoagulants Paroxysmal atrial fibrillation (HCC) Atrial fibrillation [facility] Diagnosis Dementia, unspecified dementia severity, unspecified dementia type, unspecified whether behavioral, psychotic, or mood disturbance or anxiety (HCC)- Primary [facility] Diagnosis assisted current use of anticoagulant- Primary Long-term (current) use of anticoagulants Paroxysmal atrial fibrillation (HCC) Atrial fibrillation [facility] Diagnosis Dementia, unspecified dementia severity, unspecified [...] musculoskeletal systems documented in this encounter [facility] note* Diagnosis Cognitive impairment, mild, so stated Mild cognitive impairment, so stated documented in this encounter [facility] note* Diagnosis Essential hypertension, benign- Primary Hyperlipidemia, unspecified hyperlipidemia type Atherosclerosis 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, unspecified vessel or lesion type, unspecified whether [place] or transplanted heart Paroxysmal atrial fibrillation (HCC) Atrial fibrillation Edema of both lower legs History of stroke with 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 Dementia, unspecified dementia severity, unspecified dementia type, unspecified whether behavioral, psychotic, or mood disturbance or anxiety (HCC) documented in this encounter [facility] note* 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) Paralysis agitans documented in this encounter [facility] note* Diagnosis Bursitis of right elbow, unspecified bursa- Primary documented in this encounter [facility] note* Diagnosis Moderate dementia without behavioral disturbance, psychotic disturbance, mood disturbance, or anxiety, unspecified dementia type (HCC)- Primary Hallucinations Screening for depression Encounter for screening examination for other mental health and behavioral disorders documented in this encounter [facility] for referral (narrative)* Diagnostic Procedure Only (Routine) - Authorized Specialty Diagnoses / Procedures Referred By Jennifer gomez Referred To Contact US IMAGING Diagnoses Thyroid nodule Procedures US THYROID/PARATHYROID US SOFT TISSUE HEAD & NECK REAL TIME IMGE DOCM Stas Mora MD [address] [place] [address] Us Imaging Referral ID Status Reason Start Date Expiration Date Visits Requested Visits Authorized [id number] Authorized Auto-Generat ed Referral 12/26/2021 01/25/2023 1 1 [facility] for referral (narrative)* Diagnostic Procedure Only (Urgent) - Closed Specialty Diagnoses / Procedures Referred By Contac t Referred To Contact XR IMAGING Diagnoses Left hip pain Procedures XR HIP GENERAL 3V PELV/AP/LAT LEFT RADEX HIP UNILATERAL WITH PELVIS 2-3 VIEWS Jenna Fitzpatrick APRN.CCU NURSE [address] [place] [address] [place] [address] Referral ID Status Reason Start Date Expiration Date V isits Requested Visits Authorized [id number] Closed Auto-Generate d Referral 05/21/2022 06/20/2023 1 1 [facility] for referral (narrative)No reason for referral information [facility] N[facility]* Diagnostic Procedure Only (Urgent) - Closed Specialty Diagnoses / Procedures Referred By Contac t Referred To Contact XR IMAGING Diagnoses Left hip pain Procedures XR HIP GENERAL 3V PELV/AP/LAT LEFT RADEX HIP UNILATERAL WITH PELVIS 2-3 VIEWS Jenna Fitzpatrick, JETHRO.CCU NURSE [address] [place] [address] [place] [address] Referral ID Status Reason Start Date Expiration Date V isits Requested Visits Authorized [id number] Closed Auto-Generate d Referral 05/21/2022 06/20/2023 1 1 [facility] for visit Narrative* MRI/CT (Routine) - Closed Specialty Diagnoses / Procedures Referred By Contac t Referred To Contact MR IMAGING Diagnoses Cognitive impairment, mild, so stated Procedures MRI BRAIN W QUANT WO IVCON MRI BRAIN BRAIN STEM W/O CONTRAST MATERIAL Luciana Cisneros MD [address] [place] [address] Phone: tel: fax: [place] [id number] Referral ID Status Reason Start Date Expiration Date V isits Requested Visits Authorized [id number] Closed Auto-Generate d Referral 05/11/2024 07/10/2024 1 1 [facility] Summary Purpose Family History No Family [...] Will Yes December 21 6:17pm Power of Market Research Consultant Yes December 21 6:17pm Name of Medical Power of Market Research Consultant IRAJ HULL , DAUGHTER December 21, 2021 6:17pm Advance Directive Response Recorded Date/ Time Name of Medical Power of Market Research Consultant Anabella Hull December 21, 2021 8:06pm Living Will Yes December 21 8:06pm Power of Market Research Consultant Yes December 21 8:06pm Advance Directive Response Recorded Date/ Time Living Will Yes February 10, 023 3:17pm Power of Market Research Consultant Yes February 10, 2023 3:17pm Name of Medical Power of Market Research Consultant daughter-yomi hull February 10, 2023 3:17pm Advance Directive Response Recorded Date/ Time Do you have a Healthcare Power of Market Research Consultant? Yes September 01, 2024 7:36am Name of Medical Power of Market Research Consultant anabella hull September 01, 2024 7:36am Advance Directive Response Recorded Date/ Time Do you have a Healthcare Power of Market Research Consultant? Yes September 01, 2024 12:00pm Name of Medical Power of Market Research Consultant anabella hull September 01, 2024 12:00pm Chief [...] atrial fibrillation August 10:24am History of dementia Louann 12th, 2025 10:2 4am History of TIAs September 01, [...] LAB WORK September 28, 2024 5:00a m GROUP HOME LAB WORK September 29, 2024 5: 00am Admission H&P Exam September 30, 2024 5:50 pm GROUP HOME LAB WORK October 05, 2024 5: 00am GROUP HOME LAB WORK October 06, 2024 5: 00am [...] LAB WORK September 28, 2024 5:00a m GROUP HOME LAB WORK September 29, 2024 5: 00am Admission H&P Exam September 30, 2024 5:50 pm GROUP HOME LAB WORK October 05, 2024 5: 00am GROUP HOME LAB WORK October 06, 2024 5: 00am [...] LAB WORK September 28, 2024 5:00a m GROUP HOME LAB WORK September 29, 2024 5: 00am Admission H&P Exam September 30, 2024 5:50 pm GROUP HOME LAB WORK October 05, 2024 5: 00am GROUP HOME LAB WORK October 06, 2024 5: 00am [...] LAB WORK September 28, 2024 5:00a m GROUP HOME LAB WORK September 29, 2024 5: 00am Admission H&P Exam September 30, 2024 5:50 pm GROUP HOME LAB WORK October 05, 2024 5: 00am GROUP HOME LAB WORK October 06, 2024 5: 00am [...] LAB WORK September 28, 2024 5:00a m GROUP HOME LAB WORK September 29, 2024 5: 00am Admission H&P Exam September 30, 2024 5:50 pm GROUP HOME LAB WORK October 05, 2024 5: 00am GROUP HOME LAB WORK October 06, 2024 5: 00am New Concern October 20, 2024 2:54 pm ADMISSION, H&P October 25, 2024 2:2 2pm LABWORK October 31, 2024 5: 00am LABWORK November 02, 2024 5: 00am GROUP HOME LAB WORK November 23 5:00am ADMISSION H&P EXAM BY INSURANCE REPRESENTATIVE November 24, 2024 3:34pm LABWORK November 25, 2024 5:00am ADMISSION H&P/MONTHLY EXAM November 1:06pm GROUP HOME LAB WORK November 30 5:00am GROUP HOME LAB WORK December 14 5:35am GROUP HOME LAB WORK December 21, 2024 5:45am Reason for Referral Specialty Diagnoses / Procedures Referred By Contac t Referred To Contact [facility] Diagnoses Shuffling gait Ambulatory dysfunction Balance disorder Procedures CONSULT TO PHYSICAL THERAPY PHYSICAL THERAPY EVALUATION [facility] 45 MINS Luciana Cisneros MD [address] [place] [address] [facility] [place] [address] [place] [address] Referral ID Status Reason Start Date Expiration Date Visits Requested Visits Authorized [id number] Pending Review Auto-Generat ed Referral 04/27/2024 04/27/2025 1 1 Specialty Diagnoses / Procedures Referred By Contac t Referred To Contact MR IMAGING Diagnoses Cognitive impairment, mild, so stated Procedures MRI BRAIN W QUANT WO IVCON MRI BRAIN BRAIN STEM W/O CONTRAST MATERIAL Luciana Cisneros MD [address] [place] [address] [phone] [id number] Referral ID Status Reason Start Date Expiration Date Visits Requested Visits Authorized [id number] Pending Review Auto-Generat ed Referral 04/27/2024 05/27/2025 1 1 Specialty Diagnoses / Procedures Referred By Contac t Referred To Contact Gerontology Diagnoses Dementia, unspecified dementia severity, unspecified dementia type, unspecified whether behavioral, psychotic, or mood disturbance or anxiety (HCC) Procedures CONSULT TO GERIATRICS OFFICE/OUTPATIENT [facility] 60 MINUTES Stas Mora MD [address] [place] [id number] Referral ID Status Reason Start Date Expiration Date Visits Requested Visits Authorized [id number] Authorized PCP Requested Referral 04/25/2024 04/25/2025 1 1 Specialty Diagnoses / Procedures Referred By Contac t Referred To Contact MR IMAGING Diagnoses Cerebral infarction, unspecified mechanism (HCC) Procedures MRI BRAIN WO IVCON MRI BRAIN BRAIN STEM W/O CONTRAST MATERIAL Stas Mora MD [address] [place] [id number] [facility]95 Referral ID Status Reason Start Date Expiration Date Visits Requested Visits Authorized [id number] Pending Review Auto-Genera eli Referral Patient Cleared - Admin/Chair man/Directo r advise to proceed or did not respond 11/27/202 3 03/17/2024 1 1 Additional Source Comments (unrecognized sect ion and content) No Status Records FoundNo Status Records FoundNo Status Records FoundNo Status Records FoundNo Status Records FoundNo Status Records FoundNo Status Records Found INFORMATION SOURCE (unrecogn ized section and content) DATE CREATED AUTHOR [facility] DATE CREATED AUTHOR AUTHOR'S ORGANIZ ATION [facility]11[facility] DATE CREATED AUTHOR AUTHOR'S ORGANIZ ATION 09/15/2017 [facility] DATE CREATED AUTHOR AUTHOR'S ORGANIZ ATION 08/12/2023 [facility] ([place]) DATE CREATED AUTHOR AUTHOR'S ORGANIZ ATION 05/24/2024 [facility] DATE CREATED AUTHOR AUTHOR'S ORGANIZ ATION 02/02/2025 [facility] DATE CREATED AUTHOR AUTHOR'S ORGANIZ ATION 02/02/2025 [facility] Source Comments (unrecognize d section and content) In the event this informatio n is protected by the Federal Confidentiality of Alcohol and Drug Abuse Patient Records regulations: The Federal rules restrict any use of the information to criminally investigate or prosecute any alcohol or drug abuse patient.[facility] the event this information is protected by the Federal Confidentiality of Alcohol and Drug Abuse Patient Records regulations: The Federal rules restrict any use of the information to criminally investigate or prosecute any alcohol or drug abuse patient.[facility] HospitalIn the event this information is protected by the Federal Confidentiality of Alcohol and Drug Abuse Patient Records regulations: The Federal rules restrict any use of the information to criminally investigate or prosecute any alcohol or drug abuse patient.[facility] HospitalIn the event this information is protected by the Federal Confidentiality of Alcohol and Drug Abuse Patient Records regulations: The Federal rules restrict any use of the information to criminally investigate or prosecute any alcohol or drug abuse patient.[facility] HospitalIn the event this information is protected by the Federal Confidentiality of Alcohol and Drug Abuse Patient Records regulations: The Federal rules restrict any use of the information to criminally investigate or prosecute any alcohol or drug abuse patient.[facility] HospitalIn the event this information is protected by the Federal Confidentiality of Alcohol and Drug Abuse Patient Records regulations: The Federal rules restrict any use of the information to criminally investigate or prosecute any alcohol or drug abuse patient.[facility] HospitalIn the event this information is protected by the Federal Confidentiality of Alcohol and Drug Abuse Patient Records regulations: The Federal rules restrict any use of the information to criminally investigate or prosecute any alcohol or drug abuse patient.[facility] HospitalIn the event this information is protected by the Federal Confidentiality of Alcohol and Drug Abuse Patient Records regulations: The Federal rules restrict any use of the information to criminally investigate or prosecute any alcohol or drug abuse patient.[facility] HospitalIn the event this information is protected by the Federal Confidentiality of Alcohol and Drug Abuse Patient Records regulations: The Federal rules restrict any use of the information to criminally investigate or prosecute any alcohol or drug abuse patient.[facility] HospitalIn the event this information is protected by the Federal Confidentiality of Alcohol and Drug Abuse Patient Records regulations: The Federal rules restrict any use of the information to criminally investigate or prosecute any alcohol or drug abuse patient.[facility] HospitalIn the event this information is protected by the Federal Confidentiality of Alcohol and Drug Abuse Patient Records regulations: The Federal rules restrict any use of the information to criminally investigate or prosecute any alcohol or drug abuse patient.[facility] HospitalIn the event this information is protected by the Federal Confidentiality of Alcohol and Drug Abuse Patient Records regulations: The Federal rules restrict any use of the information to criminally investigate or prosecute any alcohol or drug abuse patient.[facility] HospitalIn the event this information is protected by the Federal Confidentiality of Alcohol and Drug Abuse Patient Records regulations: The Federal rules restrict any use of the information to criminally investigate or prosecute any alcohol or drug abuse patient.[facility] HospitalIn the event this information is protected by the Federal Confidentiality of Alcohol and Drug Abuse Patient Records regulations: The Federal rules restrict any use of the information to criminally investigate or prosecute any alcohol or drug abuse patient.[facility] HospitalIn the event this information is protected by the Federal Confidentiality of Alcohol and Drug Abuse Patient Records regulations: The Federal rules restrict any use of the information to criminally investigate or prosecute any alcohol or drug abuse patient.[facility] HospitalIn the event this information is protected by the Federal Confidentiality of Alcohol and Drug Abuse Patient Records regulations: The Federal rules restrict any use of the information to criminally investigate or prosecute any alcohol or drug abuse patient.[facility] HospitalIn the event this information is protected by the Federal Confidentiality of Alcohol and Drug Abuse Patient Records regulations: The Federal rules restrict any use of the information to criminally investigate or prosecute any alcohol or drug abuse patient.[facility] HospitalIn the event this information is protected by the Federal Confidentiality of Alcohol and Drug Abuse Patient Records regulations: The Federal rules restrict any use of the information to criminally investigate or prosecute any alcohol or drug abuse patient.[facility] HospitalIn the event this information is protected by the Federal Confidentiality of Alcohol and Drug Abuse Patient Records regulations: The Federal rules restrict any use of the information to criminally investigate or prosecute any alcohol or drug abuse patient.[facility] HospitalIn the event this information is protected by the Federal Confidentiality of Alcohol and Drug Abuse Patient Records regulations: The Federal rules restrict any use of the information to criminally investigate or prosecute any alcohol or drug abuse patient.[facility] HospitalIn the event this information is protected by the Federal Confidentiality of Alcohol and Drug Abuse Patient Records regulations: The Federal rules restrict any use of the information to criminally investigate or prosecute any alcohol or drug abuse patient.[facility] HospitalIn the event this information is protected by the Federal Confidentiality of Alcohol and Drug Abuse Patient Records regulations: The Federal rules restrict any use of the information to criminally investigate or prosecute any alcohol or drug abuse patient.[facility] HospitalIn the event this information is protected by the Federal Confidentiality of Alcohol and Drug Abuse Patient Records regulations: The Federal rules restrict any use of the information to criminally investigate or prosecute any alcohol or drug abuse patient.[facility] HospitalIn the event this information is protected by the Federal Confidentiality of Alcohol and Drug Abuse Patient Records regulations: The Federal rules restrict any use of the information to criminally investigate or prosecute any alcohol or drug abuse patient.[facility] HospitalIn the event this information is protected by the Federal Confidentiality of Alcohol and Drug Abuse Patient Records regulations: The Federal rules restrict any use of the information to criminally investigate or prosecute any alcohol or drug abuse patient.[facility] HospitalIn the event this information is protected by the Federal Confidentiality of Alcohol and Drug Abuse Patient Records regulations: The Federal rules restrict any use of the information to criminally investigate or prosecute any alcohol or drug abuse patient.[facility] HospitalIn the event this information is protected by the Federal Confidentiality of Alcohol and Drug Abuse Patient Records regulations: The Federal rules restrict any use of the information to criminally investigate or prosecute any alcohol or drug abuse patient.[facility] HospitalIn the event this information is protected by the Federal Confidentiality of Alcohol and Drug Abuse Patient Records regulations: The Federal rules restrict any use of the information to criminally investigate or prosecute any alcohol or drug abuse patient.[facility] HospitalIn the event this information is protected by the Federal Confidentiality of Alcohol and Drug Abuse Patient Records regulations: The Federal rules restrict any use of the information to criminally investigate or prosecute any alcohol or drug abuse patient.[facility] HospitalIn the event this information is protected by the Federal Confidentiality of Alcohol and Drug Abuse Patient Records regulations: The Federal rules restrict any use of the information to criminally investigate or prosecute any alcohol or drug abuse patient.[facility] HospitalIn the event this information is protected by the Federal Confidentiality of Alcohol and Drug Abuse Patient Records regulations: The Federal rules restrict any use of the information to criminally investigate or prosecute any alcohol or drug abuse patient.[facility] HospitalIn the event this information is protected by the Federal Confidentiality of Alcohol and Drug Abuse Patient Records regulations: The Federal rules restrict any use of the information to criminally investigate or prosecute any alcohol or drug abuse patient.[facility] HospitalIn the event this information is protected by the Federal Confidentiality of Alcohol and Drug Abuse Patient Records regulations: The Federal rules restrict any use of the information to criminally investigate or prosecute any alcohol or drug abuse patient.[facility] HospitalIn the event this information is protected by the Federal Confidentiality of Alcohol and Drug Abuse Patient Records regulations: The Federal rules restrict any use of the information to criminally investigate or prosecute any alcohol or drug abuse patient.[facility] HospitalIn the event this information is protected by the Federal Confidentiality of Alcohol and Drug Abuse Patient Records regulations: The Federal rules restrict any use of the information to criminally investigate or prosecute any alcohol or drug abuse patient.[facility] HospitalIn the event this information is protected by the Federal Confidentiality of Alcohol and Drug Abuse Patient Records regulations: The Federal rules restrict any use of the information to criminally investigate or prosecute any alcohol or drug abuse patient.[facility] HospitalIn the event this information is protected by the Federal Confidentiality of Alcohol and Drug Abuse Patient Records regulations: The Federal rules restrict any use of the information to criminally investigate or prosecute any alcohol or drug abuse patient.[facility] HospitalIn the event this information is protected by the Federal Confidentiality of Alcohol and Drug Abuse Patient Records regulations: The Federal rules restrict any use of the information to criminally investigate or prosecute any alcohol or drug abuse patient.[facility] HospitalIn the event this information is protected by the Federal Confidentiality of Alcohol and Drug Abuse Patient Records regulations: The Federal rules restrict any use of the information to criminally investigate or prosecute any alcohol or drug abuse patient.[facility] HospitalIn the event this information is protected by the Federal Confidentiality of Alcohol and Drug Abuse Patient Records regulations: The Federal rules restrict any use of the information to criminally investigate or prosecute any alcohol or drug abuse patient.[facility] HospitalIn the event this information is protected by the Federal Confidentiality of Alcohol and Drug Abuse Patient Records regulations: The Federal rules restrict any use of the information to criminally investigate or prosecute any alcohol or drug abuse patient.[facility] HospitalIn the event this information is protected by the Federal Confidentiality of Alcohol and Drug Abuse Patient Records regulations: The Federal rules restrict any use of the information to criminally investigate or prosecute any alcohol or drug abuse patient.[facility] HospitalIn the event this information is protected by the Federal Confidentiality of Alcohol and Drug Abuse Patient Records regulations: The Federal rules restrict any use of the information to criminally investigate or prosecute any alcohol or drug abuse patient.[facility] HospitalIn the event this information is protected by the Federal Confidentiality of Alcohol and Drug Abuse Patient Records regulations: The Federal rules restrict any use of the information to criminally investigate or prosecute any alcohol or drug abuse patient.[facility] HospitalIn the event this information is protected by the Federal Confidentiality of Alcohol and Drug Abuse Patient Records regulations: The Federal rules restrict any use of the information to criminally investigate or prosecute any alcohol or drug abuse patient.[facility] HospitalIn the event this information is protected by the Federal Confidentiality of Alcohol and Drug Abuse Patient Records regulations: The Federal rules restrict any use of the information to criminally investigate or prosecute any alcohol or drug abuse patient.[facility]In the event this information is protected by the Federal Confidentiality of Alcohol and Drug Abuse Patient Records regulations: The Federal rules restrict any use of the information to criminally investigate or prosecute any alcohol or drug abuse patient.[facility] HospitalIn the event this information is protected by the Federal Confidentiality of Alcohol and Drug Abuse Patient Records regulations: The Federal rules restrict any use of the information to criminally investigate or prosecute any alcohol or drug abuse patient.[facility] HospitalIn the event this information is protected by the Federal Confidentiality of Alcohol and Drug Abuse Patient Records regulations: The Federal rules restrict any use of the information to criminally investigate or prosecute any alcohol or drug abuse patient.[facility] HospitalIn the event this information is protected by the Federal Confidentiality of Alcohol and Drug Abuse Patient Records regulations: The Federal rules restrict any use of the information to criminally investigate or prosecute any alcohol or drug abuse patient.[facility] HospitalIn the event this information is protected by the Federal Confidentiality of Alcohol and Drug Abuse Patient Records regulations: The Federal rules restrict any use of the information to criminally investigate or prosecute any alcohol or drug abuse patient.[facility] HospitalIn the event this information is protected by the Federal Confidentiality of Alcohol and Drug Abuse Patient Records regulations: The Federal rules restrict any use of the information to criminally investigate or prosecute any alcohol or drug abuse patient.[facility] HospitalIn the event this information is protected by the Federal Confidentiality of Alcohol and Drug Abuse Patient Records regulations: The Federal rules restrict any use of the information to criminally investigate or prosecute any alcohol or drug abuse patient.[facility] HospitalIn the event this information is protected by the Federal Confidentiality of Alcohol and Drug Abuse Patient Records regulations: The Federal rules restrict any use of the information to criminally investigate or prosecute any alcohol or drug abuse patient.[facility] HospitalIn the event this information is protected by the Federal Confidentiality of Alcohol and Drug Abuse Patient Records regulations: The Federal rules restrict any use of the information to criminally investigate or prosecute any alcohol or drug abuse patient.[facility] HospitalIn the event this information is protected by the Federal Confidentiality of Alcohol and Drug Abuse Patient Records regulations: The Federal rules restrict any use of the information to criminally investigate or prosecute any alcohol or drug abuse patient.[facility] HospitalIn the event this information is protected by the Federal Confidentiality of Alcohol and Drug Abuse Patient Records regulations: The Federal rules restrict any use of the information to criminally investigate or prosecute any alcohol or drug abuse patient.[facility] HospitalIn the event this information is protected by the Federal Confidentiality of Alcohol and Drug Abuse Patient Records regulations: The Federal rules restrict any use of the information to criminally investigate or prosecute any alcohol or drug abuse patient.[facility] HospitalIn the event this information is protected by the Federal Confidentiality of Alcohol and Drug Abuse Patient Records regulations: The Federal rules restrict any use of the information to criminally investigate or prosecute any alcohol or drug abuse patient.[facility] HospitalIn the event this information is protected by the Federal Confidentiality of Alcohol and Drug Abuse Patient Records regulations: The Federal rules restrict any use of the information to criminally investigate or prosecute any alcohol or drug abuse patient.[facility] HospitalIn the event this information is protected by the Federal Confidentiality of Alcohol and Drug Abuse Patient Records regulations: The Federal rules restrict any use of the information to criminally investigate or prosecute any alcohol or drug abuse patient.[facility] HospitalIn the event this information is protected by the Federal Confidentiality of Alcohol and Drug Abuse Patient Records regulations: The Federal rules restrict any use of the information to criminally investigate or prosecute any alcohol or drug abuse patient.[facility] HospitalIn the event this information is protected by the Federal Confidentiality of Alcohol and Drug Abuse Patient Records regulations: The Federal rules restrict any use of the information to criminally investigate or prosecute any alcohol or drug abuse patient.[facility] HospitalIn the event this information is protected by the Federal Confidentiality of Alcohol and Drug Abuse Patient Records regulations: The Federal rules restrict any use of the information to criminally investigate or prosecute any alcohol or drug abuse patient.[facility] HospitalIn the event this information is protected by the Federal Confidentiality of Alcohol and Drug Abuse Patient Records regulations: The Federal rules restrict any use of the information to criminally investigate or prosecute any alcohol or drug abuse patient.[facility] HospitalIn the event this information is protected by the Federal Confidentiality of Alcohol and Drug Abuse Patient Records regulations: The Federal rules restrict any use of the information to criminally investigate or prosecute any alcohol or drug abuse patient.[facility] HospitalIn the event this information is protected by the Federal Confidentiality of Alcohol and Drug Abuse Patient Records regulations: The Federal rules restrict any use of the information to criminally investigate or prosecute any alcohol or drug abuse patient.[facility] HospitalIn the event this information is protected by the Federal Confidentiality of Alcohol and Drug Abuse Patient Records regulations: The Federal rules restrict any use of the information to criminally investigate or prosecute any alcohol or drug abuse patient.[facility] HospitalIn the event this information is protected by the Federal Confidentiality of Alcohol and Drug Abuse Patient Records regulations: The Federal rules restrict any use of the information to criminally investigate or prosecute any alcohol or drug abuse patient.[facility] HospitalIn the event this information is protected by the Federal Confidentiality of Alcohol and Drug Abuse Patient Records regulations: The Federal rules restrict any use of the information to criminally investigate or prosecute any alcohol or drug abuse patient.[facility] HospitalIn the event this information is protected by the Federal Confidentiality of Alcohol and Drug Abuse Patient Records regulations: The Federal rules restrict any use of the information to criminally investigate or prosecute any alcohol or drug abuse patient.[facility] HospitalIn the event this information is protected by the Federal Confidentiality of Alcohol and Drug Abuse Patient Records regulations: The Federal rules restrict any use of the information to criminally investigate or prosecute any alcohol or drug abuse patient.[facility] HospitalIn the event this information is protected by the Federal Confidentiality of Alcohol and Drug Abuse Patient Records regulations: The Federal rules restrict any use of the information to criminally investigate or prosecute any alcohol or drug abuse patient.[facility] HospitalIn the event this information is protected by the Federal Confidentiality of Alcohol and Drug Abuse Patient Records regulations: The Federal rules restrict any use of the information to criminally investigate or prosecute any alcohol or drug abuse patient.[facility] HospitalIn the event this information is protected by the Federal Confidentiality of Alcohol and Drug Abuse Patient Records regulations: The Federal rules restrict any use of the information to criminally investigate or prosecute any alcohol or drug abuse patient.[facility] HospitalIn the event this information is protected by the Federal Confidentiality of Alcohol and Drug Abuse Patient Records regulations: The Federal rules restrict any use of the information to criminally investigate or prosecute any alcohol or drug abuse patient.[facility] HospitalIn the event this information is protected by the Federal Confidentiality of Alcohol and Drug Abuse Patient Records regulations: The Federal rules restrict any use of the information to criminally investigate or prosecute any alcohol or drug abuse patient.[facility] HospitalIn the event this information is protected by the Federal Confidentiality of Alcohol and Drug Abuse Patient Records regulations: The Federal rules restrict any use of the information to criminally investigate or prosecute any alcohol or drug abuse patient.[facility] HospitalIn the event this information is protected by the Federal Confidentiality of Alcohol and Drug Abuse Patient Records regulations: The Federal rules restrict any use of the information to criminally investigate or prosecute any alcohol or drug abuse patient.[facility] HospitalIn the event this information is protected by the Federal Confidentiality of Alcohol and Drug Abuse Patient Records regulations: The Federal rules restrict any use of the information to criminally investigate or prosecute any alcohol or drug abuse patient.[facility] HospitalIn the event this information is protected by the Federal Confidentiality of Alcohol and Drug Abuse Patient Records regulations: The Federal rules restrict any use of the information to criminally investigate or prosecute any alcohol or drug abuse patient.[facility] HospitalIn the event this information is protected by the Federal Confidentiality of Alcohol and Drug Abuse Patient Records regulations: The Federal rules restrict any use of the information to criminally investigate or prosecute any alcohol or drug abuse patient.[facility] HospitalIn the event this information is protected by the Federal Confidentiality of Alcohol and Drug Abuse Patient Records regulations: The Federal rules restrict any use of the information to criminally investigate or prosecute any alcohol or drug abuse patient.[facility] HospitalIn the event this information is protected by the Federal Confidentiality of Alcohol and Drug Abuse Patient Records regulations: The Federal rules restrict any use of the information to criminally investigate or prosecute any alcohol or drug abuse patient.[facility] HospitalIn the event this information is protected by the Federal Confidentiality of Alcohol and Drug Abuse Patient Records regulations: The Federal rules restrict any use of the information to criminally investigate or prosecute any alcohol or drug abuse patient.[facility] HospitalIn the event this information is protected by the Federal Confidentiality of Alcohol and Drug Abuse Patient Records regulations: The Federal rules restrict any use of the information to criminally investigate or prosecute any alcohol or drug abuse patient.[facility] HospitalIn the event this information is protected by the Federal Confidentiality of Alcohol and Drug Abuse Patient Records regulations: The Federal rules restrict any use of the information to criminally investigate or prosecute any alcohol or drug abuse patient.[facility] HospitalIn the event this information is protected by the Federal Confidentiality of Alcohol and Drug Abuse Patient Records regulations: The Federal rules restrict any use of the information to criminally investigate or prosecute any alcohol or drug abuse patient.[facility] HospitalIn the event this information is protected by the Federal Confidentiality of Alcohol and Drug Abuse Patient Records regulations: The Federal rules restrict any use of the information to criminally investigate or prosecute any alcohol or drug abuse patient.[facility] HospitalIn the event this information is protected by the Federal Confidentiality of Alcohol and Drug Abuse Patient Records regulations: The Federal rules restrict any use of the information to criminally investigate or prosecute any alcohol or drug abuse patient.[facility] HospitalIn the event this information is protected by the Federal Confidentiality of Alcohol and Drug Abuse Patient Records regulations: The Federal rules restrict any use of the information to criminally investigate or prosecute any alcohol or drug abuse patient.[facility] HospitalIn the event this information is protected by the Federal Confidentiality of Alcohol and Drug Abuse Patient Records regulations: The Federal rules restrict any use of the information to criminally investigate or prosecute any alcohol or drug abuse patient.[facility] HospitalIn the event this information is protected by the Federal Confidentiality of Alcohol and Drug Abuse Patient Records regulations: The Federal rules restrict any use of the information to criminally investigate or prosecute any alcohol or drug abuse patient.[facility] HospitalIn the event this information is protected by the Federal Confidentiality of Alcohol and Drug Abuse Patient Records regulations: The Federal rules restrict any use of the information to criminally investigate or prosecute any alcohol or drug abuse patient.[facility] HospitalIn the event this information is protected by the Federal Confidentiality of Alcohol and Drug Abuse Patient Records regulations: The Federal rules restrict any use of the information to criminally investigate or prosecute any alcohol or drug abuse patient.[facility] HospitalIn the event this information is protected by the Federal Confidentiality of Alcohol and Drug Abuse Patient Records regulations: The Federal rules restrict any use of the information to criminally investigate or prosecute any alcohol or drug abuse patient.[facility] HospitalIn the event this information is protected by the Federal Confidentiality of Alcohol and Drug Abuse Patient Records regulations: The Federal rules restrict any use of the information to criminally investigate or prosecute any alcohol or drug abuse patient.[facility] HospitalIn the event this information is protected by the Federal Confidentiality of Alcohol and Drug Abuse Patient Records regulations: The Federal rules restrict any use of the information to criminally investigate or prosecute any alcohol or drug abuse patient.[facility] HospitalIn the event this information is protected by the Federal Confidentiality of Alcohol and Drug Abuse Patient Records regulations: The Federal rules restrict any use of the information to criminally investigate or prosecute any alcohol or drug abuse patient.[facility] HospitalIn the event this information is protected by the Federal Confidentiality of Alcohol and Drug Abuse Patient Records regulations: The Federal rules restrict any use of the information to criminally investigate or prosecute any alcohol or drug abuse patient.[facility] HospitalIn the event this information is protected by the Federal Confidentiality of Alcohol and Drug Abuse Patient Records regulations: The Federal rules restrict any use of the information to criminally investigate or prosecute any alcohol or drug abuse patient.[facility] HospitalIn the event this information is protected by the Federal Confidentiality of Alcohol and Drug Abuse Patient Records regulations: The Federal rules restrict any use of the information to criminally investigate or prosecute any alcohol or drug abuse patient.[facility] HospitalIn the event this information is protected by the Federal Confidentiality of Alcohol and Drug Abuse Patient Records regulations: The Federal rules restrict any use of the information to criminally investigate or prosecute any alcohol or drug abuse patient.[facility] HospitalIn the event this information is protected by the Federal Confidentiality of Alcohol and Drug Abuse Patient Records regulations: The Federal rules restrict any use of the information to criminally investigate or prosecute any alcohol or drug abuse patient.[facility] HospitalIn the event this information is protected by the Federal Confidentiality of Alcohol and Drug Abuse Patient Records regulations: The Federal rules restrict any use of the information to criminally investigate or prosecute any alcohol or drug abuse patient.[facility] HospitalIn the event this information is protected by the Federal Confidentiality of Alcohol and Drug Abuse Patient Records regulations: The Federal rules restrict any use of the information to criminally investigate or prosecute any alcohol or drug abuse patient.[facility] HospitalIn the event this information is protected by the Federal Confidentiality of Alcohol and Drug Abuse Patient Records regulations: The Federal rules restrict any use of the information to criminally investigate or prosecute any alcohol or drug abuse patient.[facility] HospitalIn the event this information is protected by the Federal Confidentiality of Alcohol and Drug Abuse Patient Records regulations: The Federal rules restrict any use of the information to criminally investigate or prosecute any alcohol or drug abuse patient.[facility] HospitalIn the event this information is protected by the Federal Confidentiality of Alcohol and Drug Abuse Patient Records regulations: The Federal rules restrict any use of the information to criminally investigate or prosecute any alcohol or drug abuse patient.[facility] HospitalIn the event this information is protected by the Federal Confidentiality of Alcohol and Drug Abuse Patient Records regulations: The Federal rules restrict any use of the information to criminally investigate or prosecute any alcohol or drug abuse patient.[facility] HospitalIn the event this information is protected by the Federal Confidentiality of Alcohol and Drug Abuse Patient Records regulations: The Federal rules restrict any use of the information to criminally investigate or prosecute any alcohol or drug abuse patient.[facility] HospitalIn the event this information is protected by the Federal Confidentiality of Alcohol and Drug Abuse Patient Records regulations: The Federal rules restrict any use of the information to criminally investigate or prosecute any alcohol or drug abuse patient.[facility] HospitalIn the event this information is protected by the Federal Confidentiality of Alcohol and Drug Abuse Patient Records regulations: The Federal rules restrict any use of the information to criminally investigate or prosecute any alcohol or drug abuse patient.[facility] HospitalIn the event this information is protected by the Federal Confidentiality of Alcohol and Drug Abuse Patient Records regulations: The Federal rules restrict any use of the information to criminally investigate or prosecute any alcohol or drug abuse patient.[facility] HospitalIn the event this information is protected by the Federal Confidentiality of Alcohol and Drug Abuse Patient Records regulations: The Federal rules restrict any use of the information to criminally investigate or prosecute any alcohol or drug abuse patient.[facility] HospitalIn the event this information is protected by the Federal Confidentiality of Alcohol and Drug Abuse Patient Records regulations: The Federal rules restrict any use of the information to criminally investigate or prosecute any alcohol or drug abuse patient.[facility] HospitalIn the event this information is protected by the Federal Confidentiality of Alcohol and Drug Abuse Patient Records regulations: The Federal rules restrict any use of the information to criminally investigate or prosecute any alcohol or drug abuse patient.[facility] HospitalIn the event this information is protected by the Federal Confidentiality of Alcohol and Drug Abuse Patient Records regulations: The Federal rules restrict any use of the information to criminally investigate or prosecute any alcohol or drug abuse patient.[facility] HospitalIn the event this information is protected by the Federal Confidentiality of Alcohol and Drug Abuse Patient Records regulations: The Federal rules restrict any use of the information to criminally investigate or prosecute any alcohol or drug abuse patient.[facility] HospitalIn the event this information is protected by the Federal Confidentiality of Alcohol and Drug Abuse Patient Records regulations: The Federal rules restrict any use of the information to criminally investigate or prosecute any alcohol or drug abuse patient.[facility] HospitalIn the event this information is protected by the Federal Confidentiality of Alcohol and Drug Abuse Patient Records regulations: The Federal rules restrict any use of the information to criminally investigate or prosecute any alcohol or drug abuse patient.[facility] HospitalIn the event this information is protected by the Federal Confidentiality of Alcohol and Drug Abuse Patient Records regulations: The Federal rules restrict any use of the information to criminally investigate or prosecute any alcohol or drug abuse patient.[facility] HospitalIn the event this information is protected by the Federal Confidentiality of Alcohol and Drug Abuse Patient Records regulations: The Federal rules restrict any use of the information to criminally investigate or prosecute any alcohol or drug abuse patient.[facility] HospitalIn the event this information is protected by the Federal Confidentiality of Alcohol and Drug Abuse Patient Records regulations: The Federal rules restrict any use of the information to criminally investigate or prosecute any alcohol or drug abuse patient.[facility] HospitalIn the event this information is protected by the Federal Confidentiality of Alcohol and Drug Abuse Patient Records regulations: The Federal rules restrict any use of the information to criminally investigate or prosecute any alcohol or drug abuse patient.[facility] HospitalIn the event this information is protected by the Federal Confidentiality of Alcohol and Drug Abuse Patient Records regulations: The Federal rules restrict any use of the information to criminally investigate or prosecute any alcohol or drug abuse patient.[facility] HospitalIn the event this information is protected by the Federal Confidentiality of Alcohol and Drug Abuse Patient Records regulations: The Federal rules restrict any use of the information to criminally investigate or prosecute any alcohol or drug abuse patient.[facility] HospitalIn the event this information is protected by the Federal Confidentiality of Alcohol and Drug Abuse Patient Records regulations: The Federal rules restrict any use of the information to criminally investigate or prosecute any alcohol or drug abuse patient.[facility] HospitalIn the event this information is protected by the Federal Confidentiality of Alcohol and Drug Abuse Patient Records regulations: The Federal rules restrict any use of the information to criminally investigate or prosecute any alcohol or drug abuse patient.[facility] HospitalIn the event this information is protected by the Federal Confidentiality of Alcohol and Drug Abuse Patient Records regulations: The Federal rules restrict any use of the information to criminally investigate or prosecute any alcohol or drug abuse patient.[facility] HospitalIn the event this information is protected by the Federal Confidentiality of Alcohol and Drug Abuse Patient Records regulations: The Federal rules restrict any use of the information to criminally investigate or prosecute any alcohol or drug abuse patient.[facility] HospitalIn the event this information is protected by the Federal Confidentiality of Alcohol and Drug Abuse Patient Records regulations: The Federal rules restrict any use of the information to criminally investigate or prosecute any alcohol or drug abuse patient.[facility] HospitalIn the event this information is protected by the Federal Confidentiality of Alcohol and Drug Abuse Patient Records regulations: The Federal rules restrict any use of the information to criminally investigate or prosecute any alcohol or drug abuse patient.[facility] HospitalIn the event this information is protected by the Federal Confidentiality of Alcohol and Drug Abuse Patient Records regulations: The Federal rules restrict any use of the information to criminally investigate or prosecute any alcohol or drug abuse patient.[facility] Reason for Visit (unrecogniz ed section [...] Follow-up Specialty Diagnoses / Procedures Referred By Contaron t Referred To Contact MR IMAGING Diagnoses Cerebral infarction, unspecified mechanism (HCC) Procedures MRI BRAIN WO IVCON MRI BRAIN BRAIN STEM W/O CONTRAST MATERIAL Stas oMra MD [address] [place] [address] [place] [address] Referral ID Status Reason Start Date Expiration Date V isits Requested Visits Authorized [id number] Closed Auto-Generat ed Referral Patient Cleared - [...] Specialty Diagnoses / Procedures Referred By Jennifer ogmez Referred To Contact Gerontology Diagnoses Dementia, unspecified dementia severity, unspecified dementia type, unspecified whether behavioral, psychotic, or mood disturbance or anxiety (HCC) Procedures CONSULT TO GERIATRICS OFFICE/OUTPATIENT [facility] 60 MINUTES Stas Mora MD [address] [place] [address] Referral ID Status Reason Start Date Expiration Date V isits Requested Visits Authorized [id number] Closed PCP Requested Referral 04/25/2024 04/25/2025 1 [...] Care Teams (unrecognized sec tion and content) Maintenance Leader Relationship Specialty Start Date End Date Stas Mora MD [address] [facility] [place] [address] PCP - General 08/02/08, Pharmacist [address]10 [facility] [place] [address] Pharmacist Pharmacy 10/19/19 Maintenance Leader Relationship Specialty Start Date End Date Stas Mora MD [address] [place] [address] PCP - General 08/02/08, Pharmacist 61542 [facility] [place] [address] Pharmacist Pharmacy 10/19/19 Maintenance Leader Relationship Specialty Start Date End Date Stas Mora MD [address] [place] [address] PCP - General 08/02/08, Pharmacist 32771 [facility] [place] [address] Pharmacist Pharmacy 10/19/19 Maintenance Leader Relationship Specialty Start Date End Date Stas Mora MD [address] [place] [address] PCP - General 08/02/08, Pharmacist 57286 [facility] [place] [address] Pharmacist Pharmacy 10/19/19 Maintenance Leader Relationship Specialty Start Date End Date Stas Mora MD [address] [place] [address] PCP - General 08/02/08, Pharmacist 35076 [facility] [place] [address] Pharmacist Pharmacy 10/19/19 Maintenance Leader Relationship Specialty Start Date End Date Stas Mora MD [address] [facility] [place] [address] PCP - General 08/02/08, Pharmacist 25301 [facility] [place] [address] Pharmacist Pharmacy 10/19/19 Maintenance Leader Relationship Specialty Start Date End Date Stas Mora MD [address] [facility] [place] [address] PCP - General 08/02/08, Pharmacist 45463 [facility] [place] [address] Pharmacist Pharmacy 10/19/19 Maintenance Leader Relationship Specialty Start Date End Date Stas Mora MD [address] [place] [address] PCP - General 08/02/08, Pharmacist 49217 [facility] [place] [address] Pharmacist Pharmacy 10/19/19 Maintenance Leader Relationship Specialty Start Date End Date Stas Mora MD [address] [facility] [place] [address] PCP - General 08/02/08, Pharmacist 67507 [facility] [place] [address] Pharmacist Pharmacy 10/19/19 Maintenance Leader Relationship Specialty Start Date End Date Stas Mora MD [address] [facility] [place] [address] PCP - General 08/02/08, Pharmacist 44767 [facility] [place] [address] Pharmacist Pharmacy 10/19/19 Maintenance Leader Relationship Specialty Start Date End Date Stas Mora MD [address] [facility] [place] [address] PCP - General 08/02/08, Pharmacist 12977 [facility] [place] [address] Pharmacist Pharmacy 10/19/19 Maintenance Leader Relationship Specialty Start Date End Date Stas Mora MD [address] [facility] [place] [address] PCP - General 08/02/08, Pharmacist 08126 [facility] [place] [address] Pharmacist Pharmacy 10/19/19 Maintenance Leader Relationship Specialty Start Date End Date Stas Mora MD [address] [facility] [place] [address] PCP - General 08/02/08, Pharmacist 40028 [facility] [place] [address] Pharmacist Pharmacy 10/19/19 Maintenance Leader Relationship Specialty Start Date End Date Stas Mora MD [address] [place] [address] PCP - General 08/02/08, Pharmacist 33114 [facility] [place] [address] Pharmacist Pharmacy 10/19/19 Maintenance Leader Relationship Specialty Start Date End Date Stas Mora MD [address] [facility] [place] [address] PCP - General 08/02/08, Pharmacist 36696 [facility] [place] [address] Pharmacist Pharmacy 10/19/19 Maintenance Leader Relationship Specialty Start Date End Date Stas Mora MD [address] [facility] [place] [address] PCP - General 08/02/08, Pharmacist 86374 [facility] [place] [address] Pharmacist Pharmacy 10/19/19 Maintenance Leader Relationship Specialty Start Date End Date Stas Mora MD [address] [facility] [place] [address] PCP - General 08/02/08, Pharmacist [address] [place] [address] Pharmacist Pharmacy 10/19/19 Maintenance Leader Relationship Specialty Start Date End Date Stas Mora MD [address] [place] [address] PCP - General 08/02/08, Pharmacist [address]209 [place] [address] Pharmacist Pharmacy 10/19/19 Maintenance Leader Relationship Specialty Start Date End Date Stas Mora MD [address] [place] [address] PCP - General 08/02/08, Pharmacist [address] [place] [address] Pharmacist Pharmacy 10/19/19 Maintenance Leader Relationship Specialty Start Date End Date Stas Mora MD [address] [place] [address] PCP - General 08/02/08, Pharmacist [address]73 [place] [address] Pharmacist Pharmacy 10/19/19 Maintenance Leader Relationship Specialty Start Date End Date Stas Mora MD [address] [place] [address] PCP - General 08/02/08, Pharmacist [address]345 [place] [address] Pharmacist Pharmacy 10/19/19 Team Status: Active Member Role Status Dates Dr. Stas Mora MD Family Provider Active Dr. Stas Mora MD Primary Care Provider Active Team Status: Inactive Member Role Status Dates Dr. Stas Mora MD Primary Care Provider Active Dr. Brian Cunningham , DO Emergency Provider Active Maintenance Leader Relationship Specialty Start Date End Date Stas Mora MD [address] [facility] [place] [address] PCP - General 08/02/08, Pharmacist 18718 [facility] [place] [address] Pharmacist Pharmacy 10/19/19 Maintenance Leader Relationship Specialty Start Date End Date Stas Mora MD [address] [facility] [place] [address] PCP - General 08/02/08, Pharmacist [address]608 [place] [address] Pharmacist Pharmacy 10/19/19 Maintenance Leader Relationship Specialty Start Date End Date Stas Mora MD [address] [place] [address] PCP - General 08/02/08, Pharmacist [address]61 [place] [address] Pharmacist Pharmacy 10/19/19 Maintenance Leader Relationship Specialty Start Date End Date Stas Mora MD [address] [place] [address] PCP - General 08/02/08, Pharmacist [address]77 [place] [address] Pharmacist Pharmacy 10/19/19 Maintenance Leader Relationship Specialty Start Date End Date Stas Mora MD [address] [facility] [place] [address] PCP - General 08/02/08, Pharmacist 55829 [facility] [place] [address] Pharmacist Pharmacy 10/19/19 Maintenance Leader Relationship Specialty Start Date End Date Stas Mora MD [address] [place] [address] PCP - General 08/02/08, Pharmacist [address]103 [place] [address] Pharmacist Pharmacy 10/19/19 Maintenance Leader Relationship Specialty Start Date End Date Stas Mora MD [address] [place] [address] PCP - General 08/02/08, Pharmacist [address]387 [place] [address] Pharmacist Pharmacy 10/19/19 Maintenance Leader Relationship Specialty Start Date End Date Stas Mora MD [address] [place] [address] PCP - General 08/02/08, Pharmacist [address]855 [place] [address] Pharmacist Pharmacy 10/19/19 Maintenance Leader Relationship Specialty Start Date End Date Stas Mora MD [address] [place] [address] PCP - General 08/02/08, Pharmacist [address]25 [place] [address] Pharmacist Pharmacy 10/19/19 Maintenance Leader Relationship Specialty Start Date End Date Stas Mora MD [address] [facility] [place] [address] PCP - General 08/02/08, Pharmacist [address]17 [place] [address] Pharmacist Pharmacy 10/19/19 Maintenance Leader Relationship Specialty Start Date End Date Stas Mora MD [address] [facility] [place] [address] PCP - General 08/02/08, Pharmacist 84373 [facility] [place] [address] Pharmacist Pharmacy 10/19/19 Maintenance Leader Relationship Specialty Start Date End Date Stas Mora MD [address] [facility] [place] [address] PCP - General 08/02/08, Pharmacist 10824 [facility] [place] [address] Pharmacist Pharmacy 10/19/19 Maintenance Leader Relationship Specialty Start Date End Date Stas Mora MD [address] [place] [address] PCP - General 08/02/08, Pharmacist [address]24 [place] [address] Pharmacist Pharmacy 10/19/19 Maintenance Leader Relationship Specialty Start Date End Date Stas Mora MD [address] [place] [address] PCP - General 08/02/08, Pharmacist [address]18 [place] [address] Pharmacist Pharmacy 10/19/19 Maintenance Leader Relationship Specialty Start Date End Date Stas Mora MD [address] [place] [address] PCP - General 08/02/08, Pharmacist 77773 [facility] [place] [address] Pharmacist Pharmacy 10/19/19 Maintenance Leader Relationship Specialty Start Date End Date Stas Mora MD [address] [place] [address] PCP - General 08/02/08, Pharmacist 96664 [facility] [place] [address] Pharmacist Pharmacy 10/19/19 Maintenance Leader Relationship Specialty Start Date End Date Stas Mora MD [address] [facility] [place] [address] PCP - General 08/02/08, Pharmacist 77919 [facility] [place] [address] Pharmacist Pharmacy 10/19/19 Maintenance Leader Relationship Specialty Start Date End Date Stas Mora MD [address] [place] [address] PCP - General 08/02/08, Pharmacist 91590 [facility] [place] [address] Pharmacist Pharmacy 10/19/19 Maintenance Leader Relationship Specialty Start Date End Date Stas Mora MD [address] [place] [address] PCP - General 08/02/08, Pharmacist 62060 [facility] [place] [address] Pharmacist Pharmacy 10/19/19 Maintenance Leader Relationship Specialty Start Date End Date Stas Mora MD [address] [place] [address] PCP - General 08/02/08, Pharmacist 70186 [facility] [place] [address] Pharmacist Pharmacy 10/19/19 Maintenance Leader Relationship Specialty Start Date End Date Stas Mora MD [address] [place] [address] PCP - General 08/02/08, Pharmacist 59984 [facility] [place] [address] Pharmacist Pharmacy 10/19/19 Maintenance Leader Relationship Specialty Start Date End Date Stas Mora MD [address] [place] [address] PCP - General 08/02/08, Pharmacist [address]43 [place] [address] Pharmacist Pharmacy 10/19/19 Jenna Fitzpatrick APRN.CCU NURSE [address] [place] [address] [facility] 02/28/24 Maintenance Leader Relationship Specialty Start Date End Date Stas Mora MD [address] [place] [address] PCP - General 08/02/08, Pharmacist [address]852 [place] [address] Pharmacist Pharmacy 10/19/19 Jenna Fitzpatrick APRN.CCU NURSE [address] [place] [address] [facility] 02/28/24 Elvis Kearney APRN.CCU NURSE [address] [place] [address] [facility] 03/08/24 Maintenance Leader Relationship Specialty Start Date End Date Stas Mora MD [address] [place] [address] PCP - General 08/02/08, Pharmacist [address]28 [place] [address] Pharmacist Pharmacy 10/19/19 Jenna Fitzpatrick APRN.CCU NURSE [address] [place] [address] [facility] 02/28/24 Elvis Kearney APRN.CCU NURSE [address] [facility] [place] [address] [facility] 03/08/24 Maintenance Leader Relationship Specialty Start Date End Date Stas Mora MD [address] [place] [address] PCP - General 08/02/08, Pharmacist [address]46 [place] [address] Pharmacist Pharmacy 10/19/19 Jenna Fitzpatrick APRN.CCU NURSE [address] [place] [address] [facility] 02/28/24 Elvis Kearney APRN.CCU NURSE [address] [place] [address] [facility] 03/08/24 Maintenance Leader Relationship Specialty Start Date End Date Stas Mora MD [address] [place] [address] PCP - General 08/02/08, Pharmacist [address]856 [place] [address] Pharmacist Pharmacy 10/19/19 Jenna Fitzpatrick HOSPICE ADMINISTRATOR.CCU NURSE [address] [place] [address] [facility] 02/28/24 Elvis Kearney APRN.CCU NURSE [address] [place] [address] [facility] 03/08/24 Maintenance Leader Relationship Specialty Start Date End Date Stas Mora MD [address] [place] [address] PCP - General 08/02/08, Pharmacist 34970 [facility] [place] [address] Pharmacist Pharmacy 10/19/19 Jenna Fitzpatrick APRN.CCU NURSE [address] [place] [address] [facility] 02/28/24 Elvis Kearney APRN.CCU NURSE [address] [place] [address] [facility]/08/[facility] Maintenance Leader Relationship Specialty Start Date End Date Stas Mora MD [address] [place] [address] PCP - General 08/02/08, Pharmacist [address]388 [place] [address] Pharmacist Pharmacy 10/19/19 Jenna Fitzpatrick APRN.CCU NURSE [address] [place] [address] [facility] 02/28/24 Elvis Kearney APRN.CCU NURSE [address] [place] [address] [facility] 03/08/24 Maintenance Leader Relationship Specialty Start Date End Date Stas Mora MD [address] [place] [address] PCP - General 08/02/08, Pharmacist 58166 [facility] [place] [address] Pharmacist Pharmacy 10/19/19 Jenna Fitzpatrick APRN.CCU NURSE [address] [place] [address] [facility] 02/28/24 Elvis Kearney APRN.CCU NURSE [address] [place] [address] [facility] 03/08/24 Maintenance Leader Relationship Specialty Start Date End Date Stas Mora MD [address] [place] [address] PCP - General 08/02/08, Pharmacist [address]60 [place] [address] Pharmacist Pharmacy 10/19/19 Jenna Fitzpatrick APRN.CCU NURSE [address] [place] [address] [facility] 02/28/24 Elvis Kearney APRN.CCU NURSE [address] [place] [address] [facility] 03/08/24 Maintenance Leader Relationship Specialty Start Date End Date Stas Mora MD [address] [place] [address] PCP - General 08/02/08, Pharmacist [address]70 [place] [address] Pharmacist Pharmacy 10/19/19 Jenna Fitzpatrick APRN.CCU NURSE [address] [place] [address] [facility] 02/28/24 Elvis Kearney APRN.CCU NURSE [address] [facility] [place] [address] [facility] 03/08/24 Maintenance Leader Relationship Specialty Start Date End Date Stas Mora MD [address] [place] [address] PCP - General 08/02/08, Pharmacist [address]195 [place] [address] Pharmacist Pharmacy 10/19/19 Jenna Fitzpatrick HOSPICE ADMINISTRATOR.CCU NURSE [address] [place] [address] [facility] 02/28/24 Elvis Kearney APRN.CCU NURSE [address] [place] [address] [facility] 03/08/24 Maintenance Leader Relationship Specialty Start Date End Date Stas Mora MD [address] [place] [address] PCP - General 08/02/08, Pharmacist [address]25 [place] [address] Pharmacist Pharmacy 10/19/19 Jenna Fitzpatrick, HOSPICE ADMINISTRATOR.CCU NURSE [address] [place] [address] [facility] 02/28/24 Elvis Kearney APRN.CCU NURSE [address] [place] [address] [facility] 03/08/24 Maintenance Leader Relationship Specialty Start Date End Date Stas Mora MD [address] [place] [address] PCP - General 08/02/08, Pharmacist [address]37 [place] [address] Pharmacist Pharmacy 10/19/19 Jenna Fitzpatrick APRN.CCU NURSE [address] [place] [address] [facility] 02/28/24 Elvis Kearney HOSPICE ADMINISTRATOR.CCU NURSE [address] [place] [address] [facility] 03/08/24 Maintenance Leader Relationship Specialty Start Date End Date Stas Mora MD [address] [place] [address] PCP - General 08/02/08, Pharmacist [address]60 [place] [address] Pharmacist Pharmacy 10/19/19 Jenna Fitzpatrick HOSPICE ADMINISTRATOR.CCU NURSE [address] [place] [address] [facility] 02/28/24 Elvis Kearney HOSPICE ADMINISTRATOR.CCU NURSE [address] [place] [address] [facility] 03/08/24 Maintenance Leader Relationship Specialty Start Date End Date Stas Mora MD [address] [place] [address] PCP - General 08/02/08, Pharmacist [address]182 [place] [address] Pharmacist Pharmacy 10/19/19 Jenna Fitzpatrick, HOSPICE ADMINISTRATOR.CCU NURSE [address] [place] [address] [facility] 02/28/24 Elvis Kearney APRN.CCU NURSE [address] [place] [address] [facility] 03/08/24 Maintenance Leader Relationship Specialty Start Date End Date Stas Mora MD [address] [place] [address] PCP - General 08/02/08, Pharmacist [address]44 [place] [address] Pharmacist Pharmacy 10/19/19 Jenna Fitzpatrick APRN.CCU NURSE [address]17 [place] [address] [facility] 02/28/24 Elvis Kearney HOSPICE ADMINISTRATOR.CCU NURSE [address] [place] [address] [facility] 03/08/24 Maintenance Leader Relationship Specialty Start Date End Date Stas Mora MD [address] [place] [address] PCP - General 08/02/08, Pharmacist [address]291 [place] [address] Pharmacist Pharmacy 10/19/19 Jenna Fitzpatrick HOSPICE ADMINISTRATOR.CCU NURSE [address]21 [place] [address] [facility] 02/28/24 Elvis Kearney APRN.CCU NURSE [address] [place] [address] [facility] 03/08/24 Maintenance Leader Relationship Specialty Start Date End Date Stas Mora MD [address] [place] [address] PCP - General 08/02/08, Pharmacist [address]28 [place] [address] Pharmacist Pharmacy 10/19/19 Elvis Kearney APRN.CCU NURSE [address] [place] [address] [facility] 03/08/24 Maintenance Leader Relationship Specialty Start Date End Date Stsa Mora MD [address] [place] [address] PCP - General 08/02/08, Pharmacist [address]370 [place] [address] Pharmacist Pharmacy 10/19/19 Elvis Kearney APRN.CCU NURSE [address] [place] [address] [facility] 03/08/24 Team Status: Active Member Role Status Dates Dr. Stas Mora MD Primary Care Provider Active Team Status: Active Member Role Status Dates Dr. Stas Mora MD Primary Care Provider Active Start: September 01, 2024 Dr. Inderjit Gillespie MD Emergency Provider Active S tart: September 01, 2024 Dr. Kathy Wells MD Admit Provider Active St art: September 01, 2024 Dr. Kathy eWlls MD Attending Provider Active Start: September 01, [...] Provider Active Sta rt: September 06, 2024 Maintenance Leader Relationship Specialty Start Date End Date Stas Mora MD [address] [place], [place] [id number] PCP - General 08/02/08 13, Pharmacist [address] [place], [place] [address] Pharmacist Pharmacy 10/19/19 Elvis Kearney APRN.CNP [address] [place], [place] [address] [facility] 03/08/24 Team Status: Active Member [...] 2024 End: September 07, 2024 Halina Carmona INSURANCE REPRESENTATIVE, INSURANCE REPRESENTATIVE-C Attending Provider Active Start: September 07, 2024 [...] 2024 End: September 08, 2024 Halina Carmona INSURANCE REPRESENTATIVE, INSURANCE REPRESENTATIVE-C Attending Provider Active Start: September 08, 2024 [...] End: September 30, 2024 Halina Carmona NP INSURANCE REPRESENTATIVE-C Attending Provider Active Start: September 30, 2024 [...] 2024 End: October 20, 2024 Halina Carmona INSURANCE REPRESENTATIVE, INSURANCE REPRESENTATIVE-C Attending Provider Active Start: October 20, 2024 [...] 2024 End: September 30, 2024 Halina Carmona INSURANCE REPRESENTATIVE, INSURANCE REPRESENTATIVE-C Attending Provider Active Start: September 30, 2024 [...] 2024 End: October 20, 2024 Halina Carmona INSURANCE REPRESENTATIVE, INSURANCE REPRESENTATIVE-C Attending Provider Active Start: October 20, 2024 [...] 2024 End: September 30, 2024 Halina Carmona INSURANCE REPRESENTATIVE, INSURANCE REPRESENTATIVE-C Attending physician Active Start: September 30, 2024 [...] End: October 20, 2024 Halina Carmona NP, INSURANCE REPRESENTATIVE-C Attending physician Active Start: October 20, 2024 [...] 2024 End: November 24, 2024 Halina Carmona NP INSURANCE REPRESENTATIVE-C Attending physician Active Start: November 24, 2024 [...] BE BASED ON THE PRIMARY CLINICAL RECORDS. [employer] provides no warranty or guarantee of the accuracy or completeness of information in this document.
[2025-02-20 08:15] LABS: Prothrombin Time (Protime)PT. 34.1 SECONDS (11.7-14.9)
[2025-02-20 08:22] LABS: AST(SGOT) 27 U/L (<=37); Alanine Aminotransfer ALT/SGPT 18 U/L (<=46); Albumin, Serum 3.5 g/dL (3.4-4.8); Alkaline Phosphatase 137 U/L (40-129); Bilirubin, Direct 0.63 mg/dL (0.00-0.30); Globulin 2.8 g/dL (2.2-4.2)
== END ==
LOC: OLS.WHLCAR 05:00
PROVIDERS: PCP Family Medicine; Visit Provider Internal Medicine
DX: I48.91 Unspecified atrial fibrillation (principal); I10 Essential (primary) hypertension; I25.10 Atherosclerotic heart disease of native coronary artery without angina pectoris; E78.5 Hyperlipidemia, unspecified
CPT/HCPCS: 36415; 80076; 85610

== ENCOUNTER → 2025-02-22 05:00 | Outpatient (REF) | payer MEDICARE, SELFPAY ==
--- OUTSIDE RECORDS SUMMARY | 2025-02-22 04:11 | XMS RPT_ITS | CCD ---
Author Organization [facility] Inform ion Partnership [facility] [place] [facility] Care Team Providers Care Powerhouse Electrician Name Role Phone TEE, DARRELL E Unavailable [...] Unavailable STERLING LYNCH DO Attending Unavailable [place]annhof DECK ENGINEER.LEAD SYSTEMS DEVELOPER, Jenna Unavailable Caio DECK ENGINEER.LEAD SYSTEMS DEVELOPER, Elvis Unavailable LUCIANA CISNEROS Referring Unavailable STAS MORA Primary Care Unavailable [place]annhof DECK ENGINEER.LEAD SYSTEMS DEVELOPER, Jenna Unavailable Unavail able [place]annhof DECK ENGINEER.LEAD SYSTEMS DEVELOPER, Jenna Unavailable Morgan POLANCO, Dr. Ruiz Primary Care Provider [phone] Jose Miguel POLANCO, Dr. Jansen Emergency Provider [...] Curtis MD, Dr. Lucas Attending Physician Kristine FRESH FOODS CLERK-CHalina Attending Physician Oleghe OLS, Efewongbe Attending Unavailabl [...] Oleghe OLS, Efewongbe Attending Unavailabl e Tickton FRESH FOODS CLERK, Halina Attending Unavailable Elderbrock, Stas Primary Care Unavailable [place] FRESH FOODS CLERK, Halina Attending Unavailable Elderbrock, Stas Primary Care Unavailable [place] FRESH FOODS CLERK, Halina Attending Unavailable Elderbrock, Stas Primary Care Unavailable [place] FRESH FOODS CLERK, Halina Attending Unavailable [place]brock, Stas Primary Care Unavailable Koram, Kathy Monisha Consulting Unavailable Koram, Kathy Monisha Attending Unavailable Koram, Kathy Monisha Admitting Unavailable Elderbrock, Stas Primary Care Unavailable Kathy Wells Attending Unavailable Kristine FRESH FOODS CLERK, Halina Attending Unavailable Elderbrock, Stas Primary Care [...] unspecified vessel or lesion type, unspecified whether picayune or transplanted heart Take 1 tablet by [...] hydrochloride 10 mg oral tablet (20 sources) A-yksnws-A-aspartate Receptor Antagonist Start: 06-02-19 End: 11-29-19 take 1 tablet by mouth twice daily metoprolol tartrate 50 mg oral tablet (1 source) beta-Adrenergic Jazmin Start: 01-02-20 Lopressor 50 mg oral tablet Dose : 25 mg = 0.5 tab(s), PO, BID, 0 Refill(s), current med (Hx) Start Date: 01/01/06 Status: Ordered polyethylene glycol [id number] mg powder for oral solution (12 sources) [...] on above: Take 1 capsule by mo [facility] daily at bedtime. vardenafil 10 mg oral [...] disease (20 sources) Atherosclerotic heart disease of [place] coronary artery without angina pectoris; Translations: [Coronary [...] sources) Long-term current use of anticoagulant; Translations: [[facility] (current) use of anticoagulants] Onset: 09-22-2016 Episodic [...] 04-24-2011 04-24-2011 Episodic Other aftercare (3 sources) [facility] (current) use of anticoagulants; Translations: [Long-term (current) [...] Test Name Value Interpretation Reference Range Facility [facility] 01-19-2025 [facility] Letter Text Normal [facility] normalized rat io (INR) measurement by fingerstickOrdered By: Shayy Curtis on 01-10-2025 INR Coag (BldC) [Relative time] 1.9 [facility] Comment on above: Critical Value > 4.0 Whole blood prothrombin time Ordered By: Shayy Curtis on 01-10-2025 PT Coag (Bld) [Time] 21.0 s High 11.7-14.9 [facility] Absolute lymphocyte countOrd ered By: Shayy Curtis on 12-21-2024 Lymphocytes Auto (Unsp spec) [#/Vol] 1.31 10*3/uL 0.83-4.51 [facility] Absolute neutrophil countOrd ered By: Shayy Curtis on 12-21-2024 Neutrophils (Bld) [#/Vol] 3.6 10*3/uL 2.0-7.7 [facility] Anion gap in Serum or Plasma Ordered By: Shayy Curtis on 12-21-2024 Anion gap [Moles/Vol] 9 mmol/L 5-15 [facility] Automated lymphocyte count a s percentage of total leukocytesOrdered By: Shayy Curtis on 12-21-2024 Lymphocytes/100 WBC Auto (Unsp spec) 23.0 % 19-41 [facility] BUN/creatinine ratioOrdered By: Shayy Curtis on 12-21-2024 Urea nitrogen/Creatinine [Mass ratio] 32.5 mg/mg High 10-20 [facility] Basophil percentageOrdered B y: Shayy Curtis on 12-21-2024 Basophils/100 WBC (Bld) 0.7 % 0-1 [facility] Carbon dioxide, total [Moles /volume] in Central venous bloodOrdered By: Shayy Curtis on 12-21-2024 CO2 [Moles/Vol] 25.8 mmol/L 21.0-32.0 [facility] Chloride assayOrdered By: Hung Curtis on 12-21-2024 Chloride [Moles/Vol] 107 mmol/L 98-108 [facility] Eosinophil percentageOrdered By: Shayy Curtis on 12-21-2024 Eosinophils/100 WBC (Bld) 2.3 % 0-5 [facility] Erythrocyte distribution wid th ratioOrdered By: Shayy Curtis on 12-21-2024 Erythrocyte distribution width (RBC) [Ratio] 15.9 % High 11.6-14.6 [facility] Erythrocyte distribution wid th standard deviationOrdered By: Shayy Curtis on 12-21-2024 Erythrocyte distribution width (RBC) [Ratio] 49.5 fl High 35.1-43.9 [facility] Glomerular filtration rate ( GFR) estimation/1.73 sq m using serum, plasma, or whole bOrdered By: Shayy Curtis on 12-21-2024 GFR/1.73 sq M.predicted among non-blacks MDRD (S/P/Bld) [Vol rate/Area] 90 mL/min/{1.73_m2} >60 [facility] Comment on above: mL/min/1.73m2 CKD-EP I Creatinine Equation (2020) Hematocrit Auto (Bld) [Volum e fraction]Ordered By: Shayy Curtis on 12-21-2024 Hematocrit (Bld) [Volume fraction] 34.9 % Low 40-54 [facility] Hemoglobin measurementOrdere d By: Shayy Curtis on 12-21-2024 Hemoglobin (Bld) [Mass/Vol] 10.6 g/dL Low 13.0-16.5 [facility] Immature granulocytes/100 WB C Auto (Bld)Ordered By: Shayy Curtis on 12-21-2024 Immature granulocytes/100 WBC (Bld) 0.200 % 0.0-0.9 [facility] Comment on above: IG% - Immature Granu locytes (promyelocytes, myelocytes and metamyelocytes) > 1% indicates that a LEFT SHIFT is Present. MCV (mean corpuscular volume ) determinationOrdered By: Shayy Curtis on 12-21-2024 MCV (RBC) [Entitic vol] 84.5 fL 80-94 [facility] Mean corpuscular hemoglobin (MCH) determinationOrdered By: baldomero Curtis on 12-21-2024 MCH (RBC) [Entitic mass] 25.7 pg Low 27.0-32.0 [facility] Mean corpuscular hemoglobin concentration (MCHC) determinationOrdered By: Shayy Curtis on 12-21-2024 MCHC (RBC) [Mass/Vol] 30.4 g/dL Low 32-36 [facility] Mean platelet volume determi nationOrdered By: Shayy Curtis on 12-21-2024 Platelet mean volume (Bld) [Entitic vol] 10.9 fL 6.2-12.0 [facility] Monocyte percentageOrdered B y: Shayy Curtis on 12-21-2024 Monocytes/100 WBC (Bld) 10.5 % High 0-10 [facility] Neutrophil percentageOrdered By: Shayy Curtis on 12-21-2024 Neutrophils/100 WBC (Bld) 63.3 % 47-70 [facility] Nucleated red blood cell per centageOrdered By: Shayy Curtis on 12-21-2024 Nucleated RBC/100 WBC (Bld) [Ratio] 0 % 0-5 [facility] Platelet countOrdered By: Hung Curtis on 12-21-2024 Platelets (Bld) [#/Vol] 217 10*3/uL 150-450 [facility] Potassium measurement (mass/ volume)Ordered By: Shayy Curtis on 12-21-2024 Potassium (Unsp spec) [Mass/Vol] 3.8 mmol/L 3.3-5.1 [facility] RBC Auto (Bld) [#/Vol]Ordere d By: Shayy Curtis on 12-21-2024 RBC (Bld) [#/Vol] 4.13 10*6/uL Low 4.6-6.2 [facility] Serum creatinine measurement (mass/volume)Ordered By: Shayy Curtis on 12-21-2024 Creatinine [Mass/Vol] 0.66 mg/dL Low 0.70-1.20 [facility] Serum glucose measurement (m ass/volume)Ordered By: Shayy Curtis on 12-21-2024 Glucose [Mass/Vol] 86 mg/dL 70-99 [facility] Serum or plasma calcium alvaro urement (mass/volume)Ordered By: Shayy Curtis on 12-21-2024 Calcium [Mass/Vol] 8.6 mg/dL 7.6-11.0 [facility] Serum or plasma urea nitroge n measurement (mass/volume)Ordered By: Shayy Curtis on 12-21-2024 Urea nitrogen [Mass/Vol] 22 mg/dL High 4-19 [facility] Sodium levelOrdered By: Latrice Curtis on 12-21-2024 Sodium [Moles/Vol] 142 mmol/L 133-145 [facility] White blood cell (WBC) count Ordered By: Shayy Curtis on 12-21-2024 WBC (Bld) [#/Vol] 5.7 10*3/uL 4.4-11.0 [facility] International normalized rat io (INR) calculationOrdered By: Shayy Curtis on 12-14-2024 INR Coag (Bld) [Relative time] 2.5 {INR} [facility] Prothrombin timeOrdered By: Shayy Curtis on 12-14-2024 PT Coag (PPP) [Time] 27.6 s High 11.7-14.9 [facility] normalized rat io (INR) measurement by fingerstickOrdered By: Shayy Curtis on 11-30-2024 INR Coag (BldC) [Relative time] 2.0 [facility] Comment on above: Critical Value > 4.0 Whole blood prothrombin time Ordered By: Shayy Curtis on 11-30-2024 PT Coag (Bld) [Time] 22.0 s High 11.7-14.9 [facility] Bilirubin directOrdered By: Shayy Curtis on 11-25-2024 Bilirubin.direct [Mass/Vol] 0.32 mg/dL High 0.00-0.30 [facility] Bilirubin, totalOrdered By: Shayy Curtis on 11-25-2024 Bilirubin [Mass/Vol] 0.63 mg/dL 0.00-1.30 [facility] Calculated very low density lipoprotein (VLDL) cholesterol measurementOrdered By: Shayy Curtis on 11-25-2024 Calculated very low density lipoprotein (VLDL) cholesterol measurement 10 mg/dL 5-40 [facility] LDL calc ser/plasOrdered By: Shayy Curtis on 11-25-2024 Cholesterol in LDL [Mass/Vol] 41 mg/dL [facility] Comment on above: Ywwxacyvfa=336-091 m g/dL & Higher Mkni=301 mg/dL or greaterFriedwald Equation for LDL-C Laboratory - Chemistry and C hemistry - challengeOrdered By: Shayy Curtis on 11-25-2024 AST [Catalytic activity/Vol] 24 U/L <38 [facility] Screening total cholesterol/ high density lipoprotein (HDL) cholesterol ratioOrdered By: Shayy Curtis on 11-25-2024 Cholesterol.total/Cho lesterol in HDL [Mass ratio] 2.59 {ratio} [facility] Serum globulin measurementOr dered By: Shayy Curtis on 11-25-2024 Globulin (S) [Mass/Vol] 2.3 g/dL 2.2-4.2 [facility] Serum or plasma alanine franks otransferase (ALT) measurementOrdered By: Shayy Curtis on 11-25-2024 ALT [Catalytic activity/Vol] 19 U/L <47 [facility] Serum or plasma albumin alvaro urement (mass/volume)Ordered By: Shayy Curtis on 11-25-2024 Albumin [Mass/Vol] 3.6 g/dL 3.4-4.8 [facility] Serum or plasma alkaline carole sphatase measurementOrdered By: Shayy Curtis on 11-25-2024 ALP [Catalytic activity/Vol] 119 U/L 40-129 [facility] Serum or plasma cholesterol in HDL measurement (mass/volume)Ordered By: Shayy Curtis on 11-25-2024 Cholesterol in HDL [Mass/Vol] 32 mg/dL Low >40 [facility] Comment on above: National Cholesterol Education Program (NCEP) guidelines:<40 mg/dL: Low HDL-cholesterol (major risk factor for CHD)>= 60 mg/dL: High HDL-cholesterol (negative risk factor for CHD)HDL-cholesterol is affected by a number of factors, e.g. smoking, exercise, hormones, sex and age. Serum or plasma cholesterol measurement (mass/volume)Ordered By: Shayy Curtis on 11-25-2024 Cholesterol [Mass/Vol] 83 mg/dL <201 [facility] Comment on above: Cholesterol level, D esirable <200 mg/dLBorderline high cholesterol 200-239 mg/dLHigh cholesterol >=240 mg/dLRecommendations of the NCEP Adult Treatment Panel for the following risk-cutoff thresholds for the [place] population. Total proteinOrdered By: Yazan Curtis on 11-25-2024 Protein [Mass/Vol] 5.8 g/dL Low 5.9-8.4 [facility] Triglycerides measurementOrd ered By: Shayy Curtis on 11-25-2024 Triglyceride [Mass/Vol] 49 mg/dL <199 [facility] Comment on above: The drugs N-Acetylcy steine and Metamizole may falsely depress this assay. Normal range: <150 mg/dLBorderline High: 150-199 mg/dLHigh: 200-499 mg/dLVery High: >500 mg/dL Absolute lymphocyte countOrd ered By: Shayy Curtis on 11-23-2024 Lymphocytes Auto (Unsp spec) [#/Vol] 1.15 10*3/uL 0.83-4.51 [facility] Absolute neutrophil countOrd ered By: Shayy Curtis on 11-23-2024 Neutrophils (Bld) [#/Vol] 4.4 10*3/uL 2.0-7.7 [facility] Anion gap in Serum or Plasma Ordered By: Shayy Curtis on 11-23-2024 Anion gap [Moles/Vol] 10 mmol/L 5-15 [facility] Automated lymphocyte count a s percentage of total leukocytesOrdered By: Shayy Curtis on 11-23-2024 Lymphocytes/100 WBC Auto (Unsp spec) 17.5 % Low 19-41 [facility] BUN/creatinine ratioOrdered By: Shayy Curtis on 11-23-2024 Urea nitrogen/Creatinine [Mass ratio] 23.9 mg/mg High 10-20 [facility] Basophil percentageOrdered B y: Shayy Curtis on 11-23-2024 Basophils/100 WBC (Bld) 0.9 % 0-1 [facility] Carbon dioxide, total [Moles /volume] in Central venous bloodOrdered By: Shayy Curtis on 11-23-2024 CO2 [Moles/Vol] 23.5 mmol/L 21.0-32.0 [facility] Chloride assayOrdered By: Hung Curtis on 11-23-2024 Chloride [Moles/Vol] 105 mmol/L 98-108 [facility] Eosinophil percentageOrdered By: baldomero Curtis on 11-23-2024 Eosinophils/100 WBC (Bld) 2.9 % 0-5 [facility] Erythrocyte distribution wid th ratioOrdered By: Shayy Curtis on 11-23-2024 Erythrocyte distribution width (RBC) [Ratio] 16.9 % High 11.6-14.6 [facility] Erythrocyte distribution wid th standard deviationOrdered By: Shayy Curtis on 11-23-2024 Erythrocyte distribution width (RBC) [Ratio] 50.4 fl High 35.1-43.9 [facility] Glomerular filtration rate ( GFR) estimation/1.73 sq m using serum, plasma, or whole bOrdered By: Shayy Curtis on 11-23-2024 GFR/1.73 sq M.predicted among non-blacks MDRD (S/P/Bld) [Vol rate/Area] 90 mL/min/{1.73_m2} >60 [facility] Comment on above: mL/min/1.73m2 CKD-EP I Creatinine Equation (2020) Hematocrit Auto (Bld) [Volum e fraction]Ordered By: Shayy Curtis on 11-23-2024 Hematocrit (Bld) [Volume fraction] 36.3 % Low 40-54 [facility] Hemoglobin measurementOrdere d By: Shayy Curtis on 11-23-2024 Hemoglobin (Bld) [Mass/Vol] 11.6 g/dL Low 13.0-16.5 [facility] Immature granulocytes/100 WB C Auto (Bld)Ordered By: Shayy Curtis 11-23-2024 Immature granulocytes/100 WBC (Bld) 0.300 % 0.0-0.9 [facility] Comment on above: IG% - Immature Granu locytes (promyelocytes, myelocytes and metamyelocytes) > 1% indicates that a LEFT SHIFT is Present. International normalized rat io (INR) calculationOrdered By: Shayy Curtis on 11-23-2024 INR Coag (Bld) [Relative time] 1.5 {INR} [facility] MCV (mean corpuscular volume ) determinationOrdered By: Shayy Curtis 11-23-2024 MCV (RBC) [Entitic vol] 82.1 fL 80-94 [facility] Mean corpuscular hemoglobin (MCH) determinationOrdered By: Shayy Curtis on 11-23-2024 MCH (RBC) [Entitic mass] 26.2 pg Low 27.0-32.0 [facility] Mean corpuscular hemoglobin concentration (MCHC) determinationOrdered By: Shayy Curtis on 11-23-2024 MCHC (RBC) [Mass/Vol] 32.0 g/dL 32-36 [facility] Mean platelet volume determi nationOrdered By: Shayy Curtis on 11-23-2024 Platelet mean volume (Bld) [Entitic vol] 10.0 fL 6.2-12.0 [facility] Monocyte percentageOrdered B y: Shayy Curtis on 11-23-2024 Monocytes/100 WBC (Bld) 11.3 % High 0-10 [facility] Neutrophil percentageOrdered By: Shayy Curtis on 11-23-2024 Neutrophils/100 WBC (Bld) 67.1 % 47-70 [facility] Nucleated red blood cell per centageOrdered By: Shayy Curtis on 11-23-2024 Nucleated RBC/100 WBC (Bld) [Ratio] 0 % 0-5 [facility] Platelet countOrdered By: Hung Curtis on 11-23-2024 Platelets (Bld) [#/Vol] 245 10*3/uL 150-450 [facility] Potassium measurement (mass/ volume)Ordered By: Shayy Curtis on 11-23-2024 Potassium (Unsp spec) [Mass/Vol] 4.0 mmol/L 3.3-5.1 [facility] Prothrombin timeOrdered By: Shayy Curtis on 11-23-2024 PT Coag (PPP) [Time] 17.9 s High 11.7-14.9 [facility] RBC Auto (Bld) [#/Vol]Ordere d By: Shayy Curtis on 11-23-2024 RBC (Bld) [#/Vol] 4.42 10*6/uL Low 4.6-6.2 [facility] Serum creatinine measurement (mass/volume)Ordered By: Shayy Curtis on 11-23-2024 Creatinine [Mass/Vol] 0.65 mg/dL Low 0.70-1.20 [facility] Serum glucose measurement (m ass/volume)Ordered By: Shayy Curtis on 11-23-2024 Glucose [Mass/Vol] 103 mg/dL High 70-99 [facility] Serum or plasma calcium alvaro urement (mass/volume)Ordered By: Shayy Curtis on 11-23-2024 Calcium [Mass/Vol] 8.9 mg/dL 7.6-11.0 [facility] Serum or plasma urea nitroge n measurement (mass/volume)Ordered By: Shayy Curtis on 11-23-2024 Urea nitrogen [Mass/Vol] 16 mg/dL 4-19 [facility] Sodium levelOrdered By: Latrice simonmaira Ever on 11-23-2024 Sodium [Moles/Vol] 139 mmol/L 133-145 [facility] White blood cell (WBC) count Ordered By: Shayy Curtis on 11-23-2024 WBC (Bld) [#/Vol] 6.6 10*3/uL 4.4-11.0 [facility] Absolute lymphocyte countOrd ered By: Shayy Curtis on 11-02-2024 Lymphocytes Auto (Unsp spec) [#/Vol] 1.10 10*3/uL 0.83-4.51 [facility] Absolute neutrophil countOrd ered By: Shayy Curtis on 11-02-2024 Neutrophils (Bld) [#/Vol] 6.2 10*3/uL 2.0-7.7 [facility] Anion gap in Serum or Plasma Ordered By: Shyay Curtis on 11-02-2024 Anion gap [Moles/Vol] 10 mmol/L 5-15 [facility] Automated lymphocyte count a s percentage of total leukocytesOrdered By: Shayy Curtis on 11-02-2024 Lymphocytes/100 WBC Auto (Unsp spec) 13.5 % Low 19-41 [facility] BUN/creatinine ratioOrdered By: Shayy Curtis on 11-02-2024 Urea nitrogen/Creatinine [Mass ratio] 30.4 mg/mg High 10-20 [facility] Basophil percentageOrdered B y: Shayy Curtis on 11-02-2024 Basophils/100 WBC (Bld) 0.5 % 0-1 [facility] Carbon dioxide, total [Moles /volume] in Central venous bloodOrdered By: Shayy Curtis on 11-02-2024 CO2 [Moles/Vol] 22.3 mmol/L 21.0-32.0 [facility] Chloride assayOrdered By: Hung Curtis on 11-02-2024 Chloride [Moles/Vol] 106 mmol/L 98-108 [facility] Eosinophil percentageOrdered By: Shayy Curtis on 11-02-2024 Eosinophils/100 WBC (Bld) 1.4 % 0-5 [facility] Erythrocyte distribution wid th ratioOrdered By: Shayy Curtis on 11-02-2024 Erythrocyte distribution width (RBC) [Ratio] 18.0 % High 11.6-14.6 [facility] Erythrocyte distribution wid th standard deviationOrdered By: Shayy Curtis on 11-02-2024 Erythrocyte distribution width (RBC) [Ratio] 53.7 fl High 35.1-43.9 [facility] Glomerular filtration rate ( GFR) estimation/1.73 sq m using serum, plasma, or whole bOrdered By: Shayy Curtis on 11-02-2024 GFR/1.73 sq M.predicted among non-blacks MDRD (S/P/Bld) [Vol rate/Area] 91 mL/min/{1.73_m2} >60 [facility] Comment on above: mL/min/1.73m2 CKD-EP I Creatinine Equation (2020) Hematocrit Auto (Bld) [Volum e fraction]Ordered By: Shayy Curtis on 11-02-2024 Hematocrit (Bld) [Volume fraction] 35.3 % Low 40-54 [facility] Hemoglobin measurementOrdere d By: Shayy Curtis on 11-02-2024 Hemoglobin (Bld) [Mass/Vol] 11.2 g/dL Low 13.0-16.5 [facility] Immature granulocytes/100 WB C Auto (Bld)Ordered By: Shayy Curtis on 11-02-2024 Immature granulocytes/100 WBC (Bld) 0.400 % 0.0-0.9 [facility] Comment on above: IG% - Immature Granu locytes (promyelocytes, myelocytes and metamyelocytes) > 1% indicates that a LEFT SHIFT is Present. MCV (mean corpuscular volume ) determinationOrdered By: Hungbaldomero Curtis on 11-02-2024 MCV (RBC) [Entitic vol] 81.5 fL 80-94 [facility] Mean corpuscular hemoglobin (MCH) determinationOrdered By: [facility] on 11-02-2024 MCH (RBC) [Entitic mass] 25.9 pg Low 27.0-32.0 [facility] Mean corpuscular hemoglobin concentration (MCHC) determinationOrdered By: holliehormiguerosirlanda Salazartomyradha on 11-02-2024 MCHC (RBC) [Mass/Vol] 31.7 g/dL Low 32-36 [facility] Mean platelet volume determi nationOrdered By: holliehormiguerosirlanda Salazartomyradha on 11-02-2024 Platelet mean volume (Bld) [Entitic vol] 10.3 fL 6.2-12.0 [facility] Monocyte percentageOrdered B y: Shayy Curtis on 11-02-2024 Monocytes/100 WBC (Bld) 7.7 % 0-10 [facility] Neutrophil percentageOrdered By: [facility] Martinradha on 11-02-2024 Neutrophils/100 WBC (Bld) 76.5 % High 47-70 [facility] Nucleated red blood cell per centageOrdered By: holliehormiguerosirlanda Salazartomyradha on 11-02-2024 Nucleated RBC/100 WBC (Bld) [Ratio] 0 % 0-5 [facility] Platelet countOrdered By: holliehormiguerosirlanda Salazartomyradha on 11-02-2024 Platelets (Bld) [#/Vol] 225 10*3/uL 150-450 [facility] Potassium measurement (mass/ volume)Ordered By: holliehormiguerosirlanda Curtis on 11-02-2024 Potassium (Unsp spec) [Mass/Vol] 3.9 mmol/L 3.3-5.1 [facility] RBC Auto (Bld) [#/Vol]Ordere d By: Shayy Curtis on 11-02-2024 RBC (Bld) [#/Vol] 4.33 10*6/uL Low 4.6-6.2 [facility] Serum creatinine measurement (mass/volume)Ordered By: Shayy Curtis on 11-02-2024 Creatinine [Mass/Vol] 0.62 mg/dL Low 0.70-1.20 [facility] Serum glucose measurement (m ass/volume)Ordered By: Shayy Curtis on 11-02-2024 Glucose [Mass/Vol] 110 mg/dL High 70-99 [facility] Serum or plasma calcium alvaro urement (mass/volume)Ordered By: Shayy Curtis on 11-02-2024 Calcium [Mass/Vol] 8.7 mg/dL 7.6-11.0 [facility] Serum or plasma urea nitroge n measurement (mass/volume)Ordered By: Shayy Curtis on 11-02-2024 Urea nitrogen [Mass/Vol] 19 mg/dL 4-19 [facility] Sodium levelOrdered By: Latrice simonmaira Ever on 11-02-2024 Sodium [Moles/Vol] 139 mmol/L 133-145 [facility] White blood cell (WBC) count Ordered By: Shayy Curtis on 11-02-2024 WBC (Bld) [#/Vol] 8.1 10*3/uL 4.4-11.0 [facility] International normalized rat io (INR) measurement by fingerstickOrdered By: Shayy Curtis on 10-31-2024 INR Coag (BldC) [Relative time] 1.8 [facility] Comment on above: Critical Value > 4.0 Whole blood prothrombin time Ordered By: Shayy Curtis on 10-31-2024 PT Coag (Bld) [Time] 20.2 s High 11.7-14.9 [facility] normalized rat io (INR) measurement by fingerstickOrdered By: Shayy Curtis on 10-06-2024 INR Coag (BldC) [Relative time] 2.1 [facility] Comment on above: Critical Value > 4.0 Whole blood prothrombin time Ordered By: Shayy Curtis on 10-06-2024 PT Coag (Bld) [Time] 22.6 s High 11.7-14.9 [facility] Absolute lymphocyte countOrd ered By: Shayy Curtis on 10-05-2024 Lymphocytes Auto (Unsp spec) [#/Vol] 1.54 10*3/uL 0.83-4.51 [facility] Absolute neutrophil countOrd ered By: Shayy Curtis on 10-05-2024 Neutrophils (Bld) [#/Vol] 4.2 10*3/uL 2.0-7.7 [facility] Anion gap in Serum or Plasma Ordered By: Shayy Curtis on 10-05-2024 Anion gap [Moles/Vol] 10 mmol/L 5-15 [facility] Automated lymphocyte count a s percentage of total leukocytesOrdered By: Shayy Curtis on 10-05-2024 Lymphocytes/100 WBC Auto (Unsp spec) 23.8 % 19-41 [facility] BUN/creatinine ratioOrdered By: baldomero Curtis on 10-05-2024 Urea nitrogen/Creatinine [Mass ratio] 18.2 mg/mg 10-20 [facility] Basophil percentageOrdered B y: Shayy Curtis on 10-05-2024 Basophils/100 WBC (Bld) 0.6 % 0-1 [facility] Carbon dioxide, total [Moles /volume] in Central venous bloodOrdered By: Shayy Curtis on 10-05-2024 CO2 [Moles/Vol] 24.6 mmol/L 21.0-32.0 [facility] Chloride assayOrdered By: Hung Curtis on 10-05-2024 Chloride [Moles/Vol] 106 mmol/L 98-108 [facility] Eosinophil percentageOrdered By: Shayy Curtis on 10-05-2024 Eosinophils/100 WBC (Bld) 1.9 % 0-5 [facility] Erythrocyte distribution wid th ratioOrdered By: Shayy Curtis on 10-05-2024 Erythrocyte distribution width (RBC) [Ratio] 18.2 % High 11.6-14.6 [facility] [facility] Erythrocyte distribution wid th standard deviationOrdered By: Shayy Curtis on 10-05-2024 Erythrocyte distribution width (RBC) [Ratio] 52.4 fl High 35.1-43.9 [facility] Glomerular filtration rate ( GFR) estimation/1.73 sq m using serum, plasma, or whole bOrdered By: Shayy Curtis on 10-05-2024 GFR/1.73 sq M.predicted among non-blacks MDRD (S/P/Bld) [Vol rate/Area] 87 mL/min/{1.73_m2} >60 [facility] Comment on above: mL/min/1.73m2 CKD-EP I Creatinine Equation (2020) Hematocrit Auto (Bld) [Volum e fraction]Ordered By: Shayy Curtis on 10-05-2024 Hematocrit (Bld) [Volume fraction] 35.0 % Low 40-54 [facility] Hemoglobin measurementOrdere d By: Shayy Curtis on 10-05-2024 Hemoglobin (Bld) [Mass/Vol] 11.0 g/dL Low 13.0-16.5 [facility] Immature granulocytes/100 WB C Auto (Bld)Ordered By: Shayy Curtis 10-05-2024 Immature granulocytes/100 WBC (Bld) 0.300 % 0.0-0.9 [facility] Comment on above: IG% - Immature Granu locytes (promyelocytes, myelocytes and metamyelocytes) > 1% indicates that a LEFT SHIFT is Present. MCV (mean corpuscular volume ) determinationOrdered By: Shayy Curtis 10-05-2024 MCV (RBC) [Entitic vol] 78.8 fL Low 80-94 [facility] Mean corpuscular hemoglobin (MCH) determinationOrdered By: baldomero Curtis 10-05-2024 MCH (RBC) [Entitic mass] 24.8 pg Low 27.0-32.0 [facility] Mean corpuscular hemoglobin concentration (MCHC) determinationOrdered By: Shayy Curtis 10-05-2024 MCHC (RBC) [Mass/Vol] 31.4 g/dL Low 32-36 [facility] Mean platelet volume determi nationOrdered By: Shayy Curtis on 10-05-2024 Platelet mean volume (Bld) [Entitic vol] 10.3 fL 6.2-12.0 [facility] Monocyte percentageOrdered B y: Shayy Salazartomyradha on 10-05-2024 Monocytes/100 WBC (Bld) 8.5 % 0-10 [facility] Neutrophil percentageOrdered By: Shayy Salazartomyradha on 10-05-2024 Neutrophils/100 WBC (Bld) 64.9 % 47-70 [facility] Nucleated red blood cell per centageOrdered By: Shayy Salazartomyradha on 10-05-2024 Nucleated RBC/100 WBC (Bld) [Ratio] 0 % 0-5 [facility] Platelet countOrdered By: Hung hollietimmy Curtis on 10-05-2024 Platelets (Bld) [#/Vol] 235 10*3/uL 150-450 [facility] Potassium measurement (mass/ volume)Ordered By: Shayy Curtis on 10-05-2024 Potassium (Unsp spec) [Mass/Vol] 4.1 mmol/L 3.3-5.1 [facility] RBC Auto (Bld) [#/Vol]Ordere d By: Shayy Curtis on 10-05-2024 RBC (Bld) [#/Vol] 4.44 10*6/uL Low 4.6-6.2 [facility] Serum creatinine measurement (mass/volume)Ordered By: Shayy Curtis on 10-05-2024 Creatinine [Mass/Vol] 0.73 mg/dL 0.70-1.20 [facility] Serum glucose measurement (m ass/volume)Ordered By: Shayy Curtis on 10-05-2024 Glucose [Mass/Vol] 90 mg/dL 70-99 [facility] Serum or plasma calcium alvaro urement (mass/volume)Ordered By: Shayy Curtis on 10-05-2024 Calcium [Mass/Vol] 8.7 mg/dL 7.6-11.0 [facility] Serum or plasma urea nitroge n measurement (mass/volume)Ordered By: Hungbaldomero Salazartomyradha on 10-05-2024 Urea nitrogen [Mass/Vol] 13 mg/dL 4-19 [facility] Sodium levelOrdered By: Latrice warner Martintomyradha on 10-05-2024 Sodium [Moles/Vol] 140 mmol/L 133-145 [facility] White blood cell (WBC) count Ordered By: Hunghollietimmy Martinsergio on 10-05-2024 WBC (Bld) [#/Vol] 6.5 10*3/uL 4.4-11.0 [facility] International normalized rat io (INR) calculationOrdered By: Hunghollierobsonirlanda Salazartomyradha on 09-29-2024 INR Coag (Bld) [Relative time] 3.3 {INR} [facility] Prothrombin timeOrdered By: Hunghollierobsonirlanda Salazartomyradha on 09-29-2024 PT Coag (PPP) [Time] 34.4 s High 11.7-14.9 [facility] Absolute lymphocyte countOrd ered By: Hunghollierobsonirlanda Salazartomyradha on 09-28-2024 Lymphocytes Auto (Unsp spec) [#/Vol] 1.41 10*3/uL 0.83-4.51 [facility] Absolute neutrophil countOrd ered By: Hunghollierobsonirlanda Salazartomyradha on 09-28-2024 Neutrophils (Bld) [#/Vol] 4.8 10*3/uL 2.0-7.7 [facility] Anion gap in Serum or Plasma Ordered By: Hunghollietimmy Martintomyradha on 09-28-2024 Anion gap [Moles/Vol] 13 mmol/L 5-15 [facility] Automated lymphocyte count a s percentage of total leukocytesOrdered By: Hungbaldomero Salazartomyradha on 09-28-2024 Lymphocytes/100 WBC Auto (Unsp spec) 20.1 % 19-41 [facility] BUN/creatinine ratioOrdered By: baldomero Salazartomyradha on 09-28-2024 Urea nitrogen/Creatinine [Mass ratio] 19.9 mg/mg 10-20 [facility] Basophil percentageOrdered B y: Christineirlanda Salazartomyradha on 09-28-2024 Basophils/100 WBC (Bld) 0.6 % 0-1 [facility] Carbon dioxide, total [Moles /volume] in Central venous bloodOrdered By: Shayy Curtis on 09-28-2024 CO2 [Moles/Vol] 21.1 mmol/L 21.0-32.0 [facility] Chloride assayOrdered By: Hung Curtis on 09-28-2024 Chloride [Moles/Vol] 105 mmol/L 98-108 [facility] Eosinophil percentageOrdered By: Shayy Curtis on 09-28-2024 Eosinophils/100 WBC (Bld) 2.0 % 0-5 [facility] Erythrocyte distribution wid th ratioOrdered By: baldomero Curtis on 09-28-2024 Erythrocyte distribution width (RBC) [Ratio] 18.3 % High 11.6-14.6 [facility] Erythrocyte distribution wid th standard deviationOrdered By: holliehormiguerosirlanda Curtis on 09-28-2024 Erythrocyte distribution width (RBC) [Ratio] 52.8 fl High 35.1-43.9 [facility] Glomerular filtration rate ( GFR) estimation/1.73 sq m using serum, plasma, or whole bOrdered By: Shayy Curtis on 09-28-2024 GFR/1.73 sq M.predicted among non-blacks MDRD (S/P/Bld) [Vol rate/Area] 88 mL/min/{1.73_m2} >60 [facility] Comment on above: mL/min/1.73m2 CKD-EP I Creatinine Equation (2020) Hematocrit Auto (Bld) [Volum e fraction]Ordered By: Shayy Curtis on 09-28-2024 Hematocrit (Bld) [Volume fraction] 37.0 % Low 40-54 [facility] Hemoglobin measurementOrdere d By: Shayy Curtis on 09-28-2024 Hemoglobin (Bld) [Mass/Vol] 11.5 g/dL Low 13.0-16.5 [facility] Immature granulocytes/100 WB C Auto (Bld)Ordered By: Shayy Curtis on 09-28-2024 Immature granulocytes/100 WBC (Bld) 0.300 % 0.0-0.9 [facility] Comment on above: IG% - Immature Granu locytes (promyelocytes, myelocytes and metamyelocytes) > 1% indicates that a LEFT SHIFT is Present. MCV (mean corpuscular volume ) determinationOrdered By: Shayy Curtis on 09-28-2024 MCV (RBC) [Entitic vol] 80.3 fL 80-94 [facility] Mean corpuscular hemoglobin (MCH) determinationOrdered By: Shayy Curtis on 09-28-2024 MCH (RBC) [Entitic mass] 24.9 pg Low 27.0-32.0 [facility] Mean corpuscular hemoglobin concentration (MCHC) determinationOrdered By: Shayy Curtis on 09-28-2024 MCHC (RBC) [Mass/Vol] 31.1 g/dL Low 32-36 [facility] Mean platelet volume determi nationOrdered By: Shayy Curtis on 09-28-2024 Platelet mean volume (Bld) [Entitic vol] 10.5 fL 6.2-12.0 [facility] Monocyte percentageOrdered B y: Shayy Curtis on 09-28-2024 Monocytes/100 WBC (Bld) 8.8 % 0-10 [facility] Neutrophil percentageOrdered By: holliehormiguerosirlanda Cutris on 09-28-2024 Neutrophils/100 WBC (Bld) 68.2 % 47-70 [facility] Nucleated red blood cell per centageOrdered By: Shayy Curtis on 09-28-2024 Nucleated RBC/100 WBC (Bld) [Ratio] 0 % 0-5 [facility] Platelet countOrdered By: Hung hollietimmy Curtis on 09-28-2024 Platelets (Bld) [#/Vol] 280 10*3/uL 150-450 [facility] Potassium measurement (mass/ volume)Ordered By: Shayy Curtis on 09-28-2024 Potassium (Unsp spec) [Mass/Vol] 4.0 mmol/L 3.3-5.1 [facility] RBC Auto (Bld) [#/Vol]Ordere d By: Shayy Curtis on 09-28-2024 RBC (Bld) [#/Vol] 4.61 10*6/uL 4.6-6.2 [facility] Serum creatinine measurement (mass/volume)Ordered By: Shayy Curtis on 09-28-2024 Creatinine [Mass/Vol] 0.71 mg/dL 0.70-1.20 [facility] Serum glucose measurement (m ass/volume)Ordered By: Shayy Curtis on 09-28-2024 Glucose [Mass/Vol] 91 mg/dL 70-99 [facility] Serum or plasma calcium alvaro urement (mass/volume)Ordered By: Shayy Curtis on 09-28-2024 Calcium [Mass/Vol] 8.9 mg/dL 7.6-11.0 [facility] Serum or plasma urea nitroge n measurement (mass/volume)Ordered By: Shayy Curtis on 09-28-2024 Urea nitrogen [Mass/Vol] 14 mg/dL 4-19 [facility] Sodium levelOrdered By: Latrice Curtis on 09-28-2024 Sodium [Moles/Vol] 140 mmol/L 133-145 [facility] White blood cell (WBC) count Ordered By: Shayy Curtis on 09-28-2024 WBC (Bld) [#/Vol] 7.0 10*3/uL 4.4-11.0 [facility] International normalized rat io (INR) measurement by fingerstickOrdered By: Shayy Curtis on 09-26-2024 INR Coag (BldC) [Relative time] 2.5 [facility] Comment on above: Critical Value > 4.0 Whole blood prothrombin time Ordered By: Shayy Curtis on 09-26-2024 PT Coag (Bld) [Time] 27.1 s High 11.7-14.9 [facility] International normalized rat io (INR) calculationOrdered By: Shayy Curtis on 09-23-2024 INR Coag (Bld) [Relative time] 2.0 {INR} [facility] Prothrombin timeOrdered By: Shayy Curtis on 09-23-2024 PT Coag (PPP) [Time] 23.5 s High 11.7-14.9 [facility] Absolute lymphocyte countOrd ered By: Shayy Curtis on 09-21-2024 Lymphocytes Auto (Unsp spec) [#/Vol] 1.35 10*3/uL 0.83-4.51 [facility] Absolute neutrophil countOrd ered By: holliehormiguerosirlanda Curtis on 09-21-2024 Neutrophils (Bld) [#/Vol] 4.3 10*3/uL 2.0-7.7 [facility] Anion gap in Serum or Plasma Ordered By: Latricehormiguerosirlanda Curtis on 09-21-2024 Anion gap [Moles/Vol] 12 mmol/L 5-15 [facility] Automated lymphocyte count a s percentage of total leukocytesOrdered By: Latricehormiguerosirlanda Curtis on 09-21-2024 Lymphocytes/100 WBC Auto (Unsp spec) 21.5 % 19-41 [facility] BUN/creatinine ratioOrdered By: [facility] Sal[facility] on 09-21-2024 Urea nitrogen/Creatinine [Mass ratio] 15.8 mg/mg 10-20 [facility] Basophil percentageOrdered B y: Shayy Curtis on 09-21-2024 Basophils/100 WBC (Bld) 0.8 % 0-1 [facility] CNPNon 09-21-2024 [facility]NPN Telephone [facility] ROBY FLORES ([id number]) 1935 M Date Time Provider Department 09/21/24 [facility] During your visit today, we recorded the following information about you: Petty Vargas 09/21/2024 9:[address] [facility] rehabilitation. 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 Encounter Status:Closed by MARTA PALACIO on 09/22/24 Normal [facility] Carbon dioxide, total [Moles /volume] in Central venous bloodOrdered By: Shayy Curtis on 09-21-2024 CO2 [Moles/Vol] 23.2 mmol/L 21.0-32.0 [facility] Chloride assayOrdered By: Hung Curtis on 09-21-2024 Chloride [Moles/Vol] 104 mmol/L 98-108 [facility] Eosinophil percentageOrdered By: Shayy Curtis on 09-21-2024 Eosinophils/100 WBC (Bld) 1.3 % 0-5 [facility] Erythrocyte distribution wid th ratioOrdered By: Shayy Curtis on 09-21-2024 Erythrocyte distribution width (RBC) [Ratio] 18.0 % High 11.6-14.6 [facility] Erythrocyte distribution wid th standard deviationOrdered By: Shayy Curtis on 09-21-2024 Erythrocyte distribution width (RBC) [Ratio] 50.8 fl High 35.1-43.9 [facility] Glomerular filtration rate ( GFR) estimation/1.73 sq m using serum, plasma, or whole bOrdered By: Shayy Curtis on 09-21-2024 GFR/1.73 sq M.predicted among non-blacks MDRD (S/P/Bld) [Vol rate/Area] 88 mL/min/{1.73_m2} >60 [facility] Comment on above: mL/min/1.73m2 CKD-EP I Creatinine Equation (2020) Hematocrit Auto (Bld) [Volum e fraction]Ordered By: Shayy Curtis on 09-21-2024 Hematocrit (Bld) [Volume fraction] 37.5 % Low 40-54 [facility] Hemoglobin measurementOrdere d By: Shayy Curtis on 09-21-2024 Hemoglobin (Bld) [Mass/Vol] 11.6 g/dL Low 13.0-16.5 [facility] Immature granulocytes/100 WB C Auto (Bld)Ordered By: Shayy Curtis on 09-21-2024 Immature granulocytes/100 WBC (Bld) 0.300 % 0.0-0.9 [facility] Comment on above: IG% - Immature Granu locytes (promyelocytes, myelocytes and metamyelocytes) > 1% indicates that a LEFT SHIFT is Present. International normalized rat io (INR) calculationOrdered By: Shayy Curtis on 09-21-2024 INR Coag (Bld) [Relative time] 1.7 {INR} [facility] MCV (mean corpuscular volume ) determinationOrdered By: Shayy Curtis 09-21-2024 MCV (RBC) [Entitic vol] 78.9 fL Low 80-94 [facility] Mean corpuscular hemoglobin (MCH) determinationOrdered By: Shayy Curtis on 09-21-2024 MCH (RBC) [Entitic mass] 24.4 pg Low 27.0-32.0 [facility] Mean corpuscular hemoglobin concentration (MCHC) determinationOrdered By: Shayy Curtis on 09-21-2024 MCHC (RBC) [Mass/Vol] 30.9 g/dL Low 32-36 [facility] Mean platelet volume determi nationOrdered By: Shayy Curtis on 09-21-2024 Platelet mean volume (Bld) [Entitic vol] 10.1 fL 6.2-12.0 [facility] Monocyte percentageOrdered B y: Shayy Curtis on 09-21-2024 Monocytes/100 WBC (Bld) 8.1 % 0-10 [facility] Neutrophil percentageOrdered By: Shayy Curtis on 09-21-2024 Neutrophils/100 WBC (Bld) 68.0 % 47-70 [facility] Nucleated red blood cell per centageOrdered By: Shayy Curtis on 09-21-2024 Nucleated RBC/100 WBC (Bld) [Ratio] 0 % 0-5 [facility] Platelet countOrdered By: Hung Curtis on 09-21-2024 Platelets (Bld) [#/Vol] 318 10*3/uL 150-450 [facility] Potassium measurement (mass/ volume)Ordered By: Shayy Curtis on 09-21-2024 Potassium (Unsp spec) [Mass/Vol] 4.0 mmol/L 3.3-5.1 [facility] Prothrombin timeOrdered By: Shayy Curtis on 09-21-2024 PT Coag (PPP) [Time] 20.6 s High 11.7-14.9 [facility] RBC Auto (Bld) [#/Vol]Ordere d By: Shayy Curtis on 09-21-2024 RBC (Bld) [#/Vol] 4.75 10*6/uL 4.6-6.2 [facility] Serum creatinine measurement (mass/volume)Ordered By: Shayy Curtis on 09-21-2024 Creatinine [Mass/Vol] 0.70 mg/dL 0.70-1.20 [facility] Serum glucose measurement (m ass/volume)Ordered By: Shayy Curtis on 09-21-2024 Glucose [Mass/Vol] 101 mg/dL High 70-99 [facility] Serum or plasma calcium alvaro urement (mass/volume)Ordered By: Shayy Curtis on 09-21-2024 Calcium [Mass/Vol] 9.2 mg/dL 7.6-11.0 [facility] Serum or plasma urea nitroge n measurement (mass/volume)Ordered By: Shayy Curtis on 09-21-2024 Urea nitrogen [Mass/Vol] 11 mg/dL 4-19 [facility] Sodium levelOrdered By: Latrice simonraffiradha Curtis on 09-21-2024 Sodium [Moles/Vol] 139 mmol/L 133-145 [facility] White blood cell (WBC) count Ordered By: Shayy Curtis on 09-21-2024 WBC (Bld) [#/Vol] 6.3 10*3/uL 4.4-11.0 [facility] International normalized rat io (INR) measurement by fingerstickOrdered By: Shayy Curtis on 09-19-2024 INR Coag (BldC) [Relative time] 1.9 [facility] Comment on above: Critical Value > 4.0 Whole blood prothrombin time Ordered By: Shayy Curtis on 09-19-2024 PT Coag (Bld) [Time] 21.5 s High 11.7-14.9 [facility] International normalized rat io (INR) calculationOrdered By: Shayy Curtis on 09-15-2024 INR Coag (Bld) [Relative time] 2.1 {INR} [facility] Prothrombin timeOrdered By: Shayy Curtis on 09-15-2024 PT Coag (PPP) [Time] 24.2 s High 11.7-14.9 [facility] Absolute lymphocyte countOrd ered By: Shayy Curtis on 09-14-2024 Lymphocytes Auto (Unsp spec) [#/Vol] 1.57 10*3/uL 0.83-4.51 [facility] Absolute neutrophil countOrd ered By: Shayy Curtis on 09-14-2024 Neutrophils (Bld) [#/Vol] 5.1 10*3/uL 2.0-7.7 [facility] Anion gap in Serum or Plasma Ordered By: Shayy Curtis on 09-14-2024 Anion gap [Moles/Vol] 12 mmol/L 5-15 [facility] Automated lymphocyte count a s percentage of total leukocytesOrdered By: Shayy Curtis on 09-14-2024 Lymphocytes/100 WBC Auto (Unsp spec) 20.8 % 19-41 [facility] BUN/creatinine ratioOrdered By: Shayy Curtis on 09-14-2024 Urea nitrogen/Creatinine [Mass ratio] 21.8 mg/mg High 10-20 [facility] Basophil percentageOrdered B y: Shayy Curtis on 09-14-2024 Basophils/100 WBC (Bld) 1.1 % High 0-1 [facility] Carbon dioxide, total [Moles /volume] in Central venous bloodOrdered By: Shayy Curtis on 09-14-2024 CO2 [Moles/Vol] 21.8 mmol/L 21.0-32.0 [facility] Chloride assayOrdered By: Hung Curtis on 09-14-2024 Chloride [Moles/Vol] 107 mmol/L 98-108 [facility] Eosinophil percentageOrdered By: Shayy Curtis on 09-14-2024 Eosinophils/100 WBC (Bld) 1.7 % 0-5 [facility] Erythrocyte distribution wid th ratioOrdered By: Shayy Curtis on 09-14-2024 Erythrocyte distribution width (RBC) [Ratio] 17.7 % High 11.6-14.6 [facility] Erythrocyte distribution wid th standard deviationOrdered By: Shayy Curtis on 09-14-2024 Erythrocyte distribution width (RBC) [Ratio] 51.1 fl High 35.1-43.9 [facility] Glomerular filtration rate ( GFR) estimation/1.73 sq m using serum, plasma, or whole bOrdered By: Shayy Curtis on 09-14-2024 GFR/1.73 sq M.predicted among non-blacks MDRD (S/P/Bld) [Vol rate/Area] 87 mL/min/{1.73_m2} >60 [facility] Comment on above: mL/min/1.73m2 CKD-EP I Creatinine Equation (2020) Hematocrit Auto (Bld) [Volum e fraction]Ordered By: Shayy Curtis on 09-14-2024 Hematocrit (Bld) [Volume fraction] 34.7 % Low 40-54 [facility] Hemoglobin measurementOrdere d By: Shayy Curtis on 09-14-2024 Hemoglobin (Bld) [Mass/Vol] 10.7 g/dL Low 13.0-16.5 [facility] Immature granulocytes/100 WB C Auto (Bld)Ordered By: holliehormiguerosirlanda Curtis on 09-14-2024 Immature granulocytes/100 WBC (Bld) 0.400 % 0.0-0.9 [facility] Comment on above: IG% - Immature Granu locytes (promyelocytes, myelocytes and metamyelocytes) > 1% indicates that a LEFT SHIFT is Present. MCV (mean corpuscular volume ) determinationOrdered By: Shayy Curtis on 09-14-2024 MCV (RBC) [Entitic vol] 78.9 fL Low 80-94 [facility] Mean corpuscular hemoglobin (MCH) determinationOrdered By: Shayy Curtis on 09-14-2024 MCH (RBC) [Entitic mass] 24.3 pg Low 27.0-32.0 [facility] Mean corpuscular hemoglobin concentration (MCHC) determinationOrdered By: baldomero Curtis on 09-14-2024 MCHC (RBC) [Mass/Vol] 30.8 g/dL Low 32-36 [facility] Mean platelet volume determi nationOrdered By: Shayy Curtis on 09-14-2024 Platelet mean volume (Bld) [Entitic vol] 10.6 fL 6.2-12.0 [facility] Monocyte percentageOrdered B y: Shayy Curtis on 09-14-2024 Monocytes/100 WBC (Bld) 8.5 % 0-10 [facility] Neutrophil percentageOrdered By: Shayy Curtis on 09-14-2024 Neutrophils/100 WBC (Bld) 67.5 % 47-70 [facility] Nucleated red blood cell per centageOrdered By: Shayy Curtis on 09-14-2024 Nucleated RBC/100 WBC (Bld) [Ratio] 0 % 0-5 [facility] Platelet countOrdered By: Hung Curtis on 09-14-2024 Platelets (Bld) [#/Vol] 291 10*3/uL 150-450 [facility] Potassium measurement (mass/ volume)Ordered By: Shayy Curtis on 09-14-2024 Potassium (Unsp spec) [Mass/Vol] 4.0 mmol/L 3.3-5.1 [facility] RBC Auto (Bld) [#/Vol]Ordere d By: Shayy Curtis on 09-14-2024 RBC (Bld) [#/Vol] 4.40 10*6/uL Low 4.6-6.2 [facility] Serum creatinine measurement (mass/volume)Ordered By: Shayy Curtis on 09-14-2024 Creatinine [Mass/Vol] 0.74 mg/dL 0.70-1.20 [facility] Serum glucose measurement (m ass/volume)Ordered By: Shayy Curtis on 09-14-2024 Glucose [Mass/Vol] 99 mg/dL 70-99 [facility] Serum or plasma calcium alvaro urement (mass/volume)Ordered By: Shayy Curtis on 09-14-2024 Calcium [Mass/Vol] 8.6 mg/dL 7.6-11.0 [facility] Serum or plasma urea nitroge n measurement (mass/volume)Ordered By: Shayy Curtis on 09-14-2024 Urea nitrogen [Mass/Vol] 16 mg/dL 4-19 [facility] Sodium levelOrdered By: Latrice Curtis on 09-14-2024 Sodium [Moles/Vol] 141 mmol/L 133-145 [facility] White blood cell (WBC) count Ordered By: Shayy Curtis on 09-14-2024 WBC (Bld) [#/Vol] 7.5 10*3/uL 4.4-11.0 [facility] International normalized rat io (INR) measurement by fingerstickOrdered By: Shayy Curtis on 09-12-2024 INR Coag (BldC) [Relative time] 3.2 [facility] Comment on above: Critical Value > 4.0 Whole blood prothrombin time Ordered By: Shayy Curtis on 09-12-2024 PT Coag (Bld) [Time] 33.0 s High 11.7-14.9 [facility] International normalized rat io (INR) measurement by fingerstickOrdered By: Shayy Curtis on 09-08-2024 INR Coag (BldC) [Relative time] 2.2 [facility] Comment on above: Critical Value > 4.0 Prothrombin Time w/INRon INR Normal [facility] Comment on above: Result Comment: Canc elled via OM: Order cancelled - Patient discharged Performed By: #### L 300.3900 #### [facility] [address] [place], [place], [id number] PROTIME Normal 11.7-14.9 [facility] Comment on above: Result Comment: Canc elled via OM: Order cancelled - Patient discharged Performed By: #### L 300.3900 #### [facility] [address] [place], [place], [id number] Whole blood prothrombin time Ordered By: Shayy Curtis on 09-08-2024 PT Coag (Bld) [Time] 23.8 s High 11.7-14.9 [facility] Anion gap in Serum or Plasma Ordered By: Shayy Curtis on 09-07-2024 Anion gap [Moles/Vol] 10 mmol/L 5-15 [facility] BUN/creatinine ratioOrdered By: Shayy Curtis on 09-07-2024 Urea nitrogen/Creatinine [Mass ratio] 14.0 mg/mg 10-20 [facility] Bilirubin, totalOrdered By: Shayy Curtis on 09-07-2024 Bilirubin [Mass/Vol] 1.02 mg/dL 0.00-1.30 [facility] Calculated very low density lipoprotein (VLDL) cholesterol measurementOrdered By: Shayy Curtis on 09-07-2024 Calculated very low density lipoprotein (VLDL) cholesterol measurement 13 mg/dL 5-40 [facility] Carbon dioxide, total [Moles /volume] in Central venous bloodOrdered By: Shayy Curtis on 09-07-2024 CO2 [Moles/Vol] 25.4 mmol/L 21.0-32.0 [facility] Chloride assayOrdered By: Hung Curtis on 09-07-2024 Chloride [Moles/Vol] 104 mmol/L 98-108 [facility] Culture, Blood (WB)on 2024 CUB No growth in 5 days. Normal [facility] Comment on above: Performed By: #### M 200.1000, L509.7001, L101.9900, L501.6710 #### [facility] [address] [place], [address] Glomerular filtration rate ( GFR) estimation/1.73 sq m using serum, plasma, or whole bOrdered By: Shayy Curtis on 09-07-2024 GFR/1.73 sq M.predicted among non-blacks MDRD (S/P/Bld) [Vol rate/Area] 88 mL/min/{1.73_m2} >60 [facility] Comment on above: mL/min/1.73m2 CKD-EP I Creatinine Equation (2020) LDL calc ser/plasOrdered By: Shayy Curtis on 09-07-2024 Cholesterol in LDL [Mass/Vol] 64 mg/dL [facility] Comment on above: Oboznfcnli=820-106 m g/dL & Higher Kvru=893 mg/dL or greater Laboratory - Chemistry and C hemistry - challengeOrdered By: Shayy Curtis on 09-07-2024 AST [Catalytic activity/Vol] 33 U/L <38 [facility] Potassium measurement (mass/ volume)Ordered By: Shayy Curtis on 09-07-2024 Potassium (Unsp spec) [Mass/Vol] 3.8 mmol/L 3.3-5.1 [facility] Prothrombin Time w/INRon INR Normal [facility] Comment on above: Result Comment: Canc elled via OM: Order cancelled - Patient discharged Performed By: #### L 300.3900 #### [facility] [address] [place], [place], [id number] PROTIME Normal 11.7-14.9 [facility] Comment on above: Result Comment: Canc elled via OM: Order cancelled - Patient discharged Performed By: #### L 300.3900 #### [facility] [address] [place], [place], [id number] Screening total cholesterol/ high density lipoprotein (HDL) cholesterol ratioOrdered By: Shayy Curtis on 09-07-2024 Cholesterol.total/Cho lesterol in HDL [Mass ratio] 3.75 {ratio} [facility] Serum creatinine measurement (mass/volume)Ordered By: Shayy Curtis on 09-07-2024 Creatinine [Mass/Vol] 0.70 mg/dL 0.70-1.20 [facility] Serum globulin measurementOr dered By: Shayy Curtis on 09-07-2024 Globulin (S) [Mass/Vol] 2.5 g/dL 2.2-4.2 [facility] Serum glucose measurement (m ass/volume)Ordered By: Shayy Curtis on 09-07-2024 Glucose [Mass/Vol] 107 mg/dL High 70-99 [facility] Serum or plasma alanine franks otransferase (ALT) measurementOrdered By: Shayy Curtis on 09-07-2024 ALT [Catalytic activity/Vol] 23 U/L <47 [facility] Serum or plasma albumin alvaro urement (mass/volume)Ordered By: Shayy Curtis on 09-07-2024 Albumin [Mass/Vol] 3.7 g/dL 3.4-4.8 [facility] Serum or plasma albumin/glob ulin mass ratioOrdered By: Shayy Curtis on 09-07-2024 Albumin/Globulin [Mass ratio] 1.5 {ratio} 0.9-2.4 [facility] Serum or plasma alkaline carole sphatase measurementOrdered By: Shayy Curtis 09-07-2024 ALP [Catalytic activity/Vol] 123 U/L 40-129 [facility] Serum or plasma calcium alvaro urement (mass/volume)Ordered By: Shayy Curtis on 09-07-2024 Calcium [Mass/Vol] 8.7 mg/dL 7.6-11.0 [facility] Serum or plasma cholesterol in HDL measurement (mass/volume)Ordered By: Shayy Curtis 09-07-2024 Cholesterol in HDL [Mass/Vol] 28 mg/dL Low >40 [facility] Comment on above: National Cholesterol Education Program (NCEP) guidelines:<40 mg/dL: Low HDL-cholesterol (major risk factor for CHD)>= 60 mg/dL: High HDL-cholesterol (negative risk factor for CHD)HDL-cholesterol is affected by a number of factors, e.g. smoking, exercise, hormones, sex and age. Serum or plasma cholesterol measurement (mass/volume)Ordered By: Shayy Curtis 09-07-2024 Cholesterol [Mass/Vol] 105 mg/dL <201 [facility] Comment on above: Cholesterol level, D esirable <200 mg/dLBorderline high cholesterol 200-239 mg/dLHigh cholesterol >=240 mg/dLRecommendations of the NCEP Adult Treatment Panel for the following risk-cutoff thresholds for the [place] population. Serum or plasma urea nitroge n measurement (mass/volume)Ordered By: Shayy Curtis 09-07-2024 Urea nitrogen [Mass/Vol] 10 mg/dL 4-19 [facility] Sodium levelOrdered By: Latrice Curtis 09-07-2024 Sodium [Moles/Vol] 139 mmol/L 133-145 [facility] TSH DL <= 0.005 mIU/L QnOrde red By: Shayy Curtis 09-07-2024 TSH Qn 0.300 uIU/mL 0.300-4.20 0 [facility] Total proteinOrdered By: Yazan Curtis on 09-07-2024 Protein [Mass/Vol] 6.2 g/dL 5.9-8.4 [facility] Triglycerides measurementOrd ered By: Shayy Curtis on 09-07-2024 Triglyceride [Mass/Vol] 63 mg/dL <199 [facility] Comment on above: The drugs N-Acetylcy steine and Metamizole may falsely depress this assay. Normal range: <150 mg/dLBorderline High: 150-199 mg/dLHigh: 200-499 mg/dLVery High: >500 mg/dL Vitamin B12 ser/plasOrdered By: Shayy Curtis on 09-07-2024 Cobalamin (Vitamin B12) [Mass/Vol] 519 pg/mL 180-914 [facility] Absolute lymphocyte countOrd ered By: Navid Dominguez on 09-06-2024 Lymphocytes Auto (Unsp spec) [#/Vol] 1.28 10*3/uL 0.83-4.51 [facility] Absolute neutrophil countOrd ered By: Navid Dominguez on 09-06-2024 Neutrophils (Bld) [#/Vol] 5.2 10*3/uL 2.0-7.7 [facility] Anion gap in Serum or Plasma Ordered By: Navid Dominguez on 09-06-2024 Anion gap [Moles/Vol] 10 mmol/L 5-15 [facility] Automated blood erythrocyte countOrdered By: Navid Dominguez on 09-06-2024 RBC (Bld) [#/Vol] 4.39 10*6/uL Low 4.6-6.2 [facility] Comment on above: Performed By: #### L 100.0100, L500.2500, L300.3900 #### [facility] [address] [place], [address] Automated blood hematocrit ( percentage)Ordered By: Navid Dominguez on 09-06-2024 Hematocrit (Bld) [Volume fraction] 33.6 % Low 40-54 [facility] Comment on above: Performed By: #### L 100.0100, L500.2500, L300.3900 #### [facility] [address] [place], [address] Automated lymphocyte count a s percentage of total leukocytesOrdered By: Navid Dominguez on 09-06-2024 Lymphocytes/100 WBC Auto (Unsp spec) 16.4 % Low 19-41 [facility] BUN/creatinine ratioOrdered By: Navid Dominguez on 09-06-2024 Urea nitrogen/Creatinine [Mass ratio] 14.4 mg/mg 10-20 [facility] Basic Metabolic Profile (BMP )on 09-06-2024 BUN/CRE 14.4 RATIO Normal 10-20 [facility] Comment on above: Performed By: #### M 200.1000, L509.7001, L101.9900, L501.6710 #### [facility] [address] [place], [address] ECRCL 64.10 ml/min Normal 50-250 [facility] Comment on above: Performed By: #### M 200.1000, L509.7001, L101.9900, L501.6710 #### [facility] [address] [place], [address] GAP 10 Normal 5-15 [facility] Comment on above: Performed By: #### M 200.1000, L509.7001, L101.9900, L501.6710 #### [facility] [address] [place], [address] Potassium [Moles/Vol] 3.5 mmol/L Normal 3.3-5.1 [facility] Comment on above: Performed By: #### M 200.1000, L509.7001, L101.9900, L501.6710 #### [facility] [address] [place], [address] Basophil percentageOrdered B y: Navid Dominguez on 09-06-2024 Basophils/100 WBC (Bld) 1.0 % Normal 0-1 [facility] Comment on above: Performed By: #### L 100.0100, L500.2500, L300.3900 #### [facility] [address] [place], [address] CBC W/Diff, Automatedon 08-21-2024 Absolute Lymph 1.28 X10 3/uL Normal 0.83-4.51 [facility] Comment on above: Performed By: #### L 100.0100, L500.2500, L300.3900 #### [facility] [address] [place], [address] Absolute Neut 5.2 X10 3/uL Normal 2.0-7.7 [facility] Comment on above: Performed By: #### L 100.0100, L500.2500, L300.3900 #### [facility] [address] [place], [address] IG% 0.400 Normal 0.0-0.9 [facility] Comment on above: Result Comment: IG% - Immature Granulocytes (promyelocytes, myelocytes and metamyelocytes) > 1% indicates that a LEFT SHIFT is Present. Performed By: #### L 100.0100, L500.2500, L300.3900 #### [facility] [address] [place], [address] Lymphocytes/100 WBC (Bld) 16.4 % Low 19-41 [facility] Comment on above: Performed By: #### L 100.0100, L500.2500, L300.3900 #### [facility] [address] [place], [address] Nucleated RBC (Bld) [#/Vol] 0 10*3/uL Normal 0-5 [facility] Comment on above: Performed By: #### L 100.0100, L500.2500, L300.3900 #### [facility] [address] [place], [address] RDW SD 48.2 fl High 35.1-43.9 [facility] Comment on above: Performed By: #### L 100.0100, L500.2500, L300.3900 #### [facility] [address] [place], [address] Carbon dioxide, total [Moles /volume] in Central venous bloodOrdered By: Navid Dominguez on 09-06-2024 CO2 [Moles/Vol] 24.9 mmol/L Normal 21.0-32.0 [facility] Comment on above: Performed By: #### M 200.1000, L509.7001, L101.9900, L501.6710 #### [facility] [address] [place], [address] Chloride assayOrdered By: Cameron Dominguez on 09-06-2024 Chloride [Moles/Vol] 106 mmol/L Normal 98-108 [facility] Comment on above: Performed By: #### M 200.1000, L509.7001, L101.9900, L501.6710 #### [facility] [address] [place], [address] Eosinophil percentageOrdered By: Navid Dominguez on 09-06-2024 Eosinophils/100 WBC (Bld) 6.3 % High 0-5 [facility] Comment on above: Performed By: #### L 100.0100, L500.2500, L300.3900 #### [facility] [address] [place], [address] Erythrocyte distribution wid th ratioOrdered By: Navid Domingeuz on 09-06-2024 Erythrocyte distribution width (RBC) [Ratio] 17.4 % High 11.6-14.6 [facility] Comment on above: Performed By: #### L 100.0100, L500.2500, L300.3900 #### [facility] [address] [place], [address] Erythrocyte distribution wid th standard deviationOrdered By: Navid Dominguez on 09-06-2024 Erythrocyte distribution width (RBC) [Ratio] 48.2 fl High 35.1-43.9 [facility] Glomerular filtration rate ( GFR) estimation/1.73 sq m using serum, plasma, or whole bOrdered By: Navid Dominguez on 09-06-2024 GFR/1.73 sq M.predicted among non-blacks MDRD (S/P/Bld) [Vol rate/Area] 87 mL/min/{1.73_m2} Normal >60 [facility] Comment on above: mL/min/1.73m2 CKD-EP I Creatinine Equation (2020) Result Comment: mL/m in/1.73m2 CKD-EPI Creatinine Equation (2020) Performed By: #### M 200.1000, L509.7001, L101.9900, L501.6710 #### [facility] [address] [place], [place], [id number] Hemoglobin measurementOrdere d By: Navid Dominguez on 09-06-2024 Hemoglobin (Bld) [Mass/Vol] 10.8 g/dL Low 13.0-16.5 [facility] Comment on above: Performed By: #### L 100.0100, L500.2500, L300.3900 #### [facility] [address] [place], [place], [id number] Immature granulocytes/100 WB C Auto (Bld)Ordered By: Navid Dominguez on 09-06-2024 Immature granulocytes/100 WBC (Bld) 0.400 % 0.0-0.9 [facility] Comment on above: IG% - Immature Granu locytes (promyelocytes, myelocytes and metamyelocytes) > 1% indicates that a LEFT SHIFT is Present. International normalized rat io (INR) calculationOrdered By: Navid Dominguez on 09-06-2024 INR Coag (Bld) [Relative time] 2.4 {INR} [facility] MCV (mean corpuscular volume ) determinationOrdered By: Navid Dominguez on 09-06-2024 MCV (RBC) [Entitic vol] 76.5 fL Low 80-94 [facility] Comment on above: Performed By: #### L 100.0100, L500.2500, L300.3900 #### [facility] [address] [place], [address] Mean corpuscular hemoglobin (MCH) determinationOrdered By: Navid Dominguez on 09-06-2024 MCH (RBC) [Entitic mass] 24.6 pg Low 27.0-32.0 [facility] Comment on above: Performed By: #### L 100.0100, L500.2500, L300.3900 #### [facility] [address] [place], [address] Mean corpuscular hemoglobin concentration (MCHC) determinationOrdered By: Navid Dominguez on 09-06-2024 MCHC (RBC) [Mass/Vol] 32.1 g/dL Normal 32-36 [facility] Comment on above: Performed By: #### L 100.0100, L500.2500, L300.3900 #### [facility] [address] [place], [address] Mean platelet volume determi nationOrdered By: Navid Dominguez on 09-06-2024 Platelet mean volume (Bld) [Entitic vol] 9.4 fL Normal 6.2-12.0 [facility] Comment on above: Performed By: #### L 100.0100, L500.2500, L300.3900 #### [facility] [address] [place], [address] Monocyte percentageOrdered B y: Navid Dominguez on 09-06-2024 Monocytes/100 WBC (Bld) 9.1 % Normal 0-10 [facility] Comment on above: Performed By: #### L 100.0100, L500.2500, L300.3900 #### [facility] [address] [place], [address] Neutrophil percentageOrdered By: Navid Dominguez on 09-06-2024 Neutrophils/100 WBC (Bld) 66.8 % Normal 47-70 [facility] Comment on above: Performed By: #### L 100.0100, L500.2500, L300.3900 #### [facility] [address] [place], [address] Nucleated red blood cell per centageOrdered By: Navid Dominguez on 09-06-2024 Nucleated RBC/100 WBC (Bld) [Ratio] 0 % 0-5 [facility] Platelet countOrdered By: Cameron Dominguez on 09-06-2024 Platelets (Bld) [#/Vol] 325 10*3/uL Normal 150-450 [facility] Comment on above: Performed By: #### L 100.0100, L500.2500, L300.3900 #### [facility] [address] [place], [address] Potassium measurement (mass/ volume)Ordered By: Navid Dominguez on 09-06-2024 Potassium (Unsp spec) [Mass/Vol] 3.5 mmol/L 3.3-5.1 [facility] Prothrombin Time w/INRon INR Coag (PPP) [Relative time] 2.4 {INR} Normal [facility] Comment on above: Performed By: #### M 200.1000, L509.7001, L101.9900, L501.6710 #### [facility] [address] [place], [address] Prothrombin timeOrdered By: Navid Dominguez on 09-06-2024 PT Coag (PPP) [Time] 27.0 s High 11.7-14.9 [facility] Comment on above: Performed By: #### M 200.1000, L509.7001, L101.9900, L501.6710 #### [facility] [address] [place], [address] Serum creatinine measurement (mass/volume)Ordered By: Navid Dominguez on 09-06-2024 Creatinine [Mass/Vol] 0.73 mg/dL Normal 0.70-1.20 [facility] Comment on above: Performed By: #### M 200.1000, L509.7001, L101.9900, L501.6710 #### [facility] [address] [place], [address] Serum glucose measurement (m ass/volume)Ordered By: Navid Dominguez on 09-06-2024 Glucose [Mass/Vol] 109 mg/dL High 70-99 [facility] Comment on above: Performed By: #### M 200.1000, L509.7001, L101.9900, L501.6710 #### [facility] [address] [place], [address] Serum or plasma calcium alvaro urement (mass/volume)Ordered By: Navid Dominguez on 09-06-2024 Calcium [Mass/Vol] 8.7 mg/dL Normal 7.6-11.0 [facility] Comment on above: Performed By: #### M 200.1000, L509.7001, L101.9900, L501.6710 #### [facility] [address] [place], [address] Serum or plasma urea nitroge n measurement (mass/volume)Ordered By: Navid Dominguez on 09-06-2024 Urea nitrogen [Mass/Vol] 11 mg/dL Normal 4-19 [facility] Comment on above: Performed By: #### M 200.1000, L509.7001, L101.9900, L501.6710 #### [facility] [address] [place], [address] Sodium levelOrdered By: Kamilah Dominguez on 09-06-2024 Sodium [Moles/Vol] 141 mmol/L Normal 133-145 [facility] Comment on above: Performed By: #### M 200.1000, L509.7001, L101.9900, L501.6710 #### [facility] [address] [place], [address] White blood cell (WBC) count Ordered By: Navid Dominguez on 09-06-2024 WBC (Bld) [#/Vol] 7.8 10*3/uL Normal 4.4-11.0 [facility] Comment on above: Performed By: #### L 100.0100, L500.2500, L300.3900 #### [facility] [address] [place], [address] Basic Metabolic Profile (BMP )on 09-05-2024 BUN/CRE 13.4 RATIO Normal 10-20 [facility] Comment on above: Performed By: #### M 200.1000, L509.7001, L101.9900, L501.6710 #### [facility] [address] [place], [address] Calcium [Mass/Vol] 8.6 mg/dL Normal 7.6-11.0 [facility] Comment on above: Performed By: #### M 200.1000, L509.7001, L101.9900, L501.6710 #### [facility] [address] [place], [address] Chloride [Moles/Vol] 105 mmol/L Normal 98-108 [facility] Comment on above: Performed By: #### M 200.1000, L509.7001, L101.9900, L501.6710 #### [facility] [address] [place], [address] CO2 [Moles/Vol] 21.9 mmol/L Normal 21.0-32.0 [facility] Comment on above: Performed By: #### M 200.1000, L509.7001, L101.9900, L501.6710 #### [facility] [address] [place], [address] Creatinine [Mass/Vol] 0.62 mg/dL Low 0.70-1.20 [facility] Comment on above: Performed By: #### M 200.1000, L509.7001, L101.9900, L501.6710 #### [facility] [address] [place], [address] ECRCL 64.10 ml/min Normal 50-250 [facility] Comment on above: Performed By: #### M 200.1000, L509.7001, L101.9900, L501.6710 #### [facility] [address] [place], [address] GAP 12 Normal 5-15 [facility] Comment on above: Performed By: #### M 200.1000, L509.7001, L101.9900, L501.6710 #### [facility] [address] [place], [address] GFR/1.73 sq M.predicted among non-blacks MDRD (S/P/Bld) [Vol rate/Area] 91 mL/min/{1.73_m2} Normal >60 [facility] Comment on above: Result Comment: mL/m in/1.73m2 CKD-EPI Creatinine Equation (2020) Performed By: #### M 200.1000, L509.7001, L101.9900, L501.6710 #### [facility] [address] [place], [address] Glucose [Mass/Vol] 119 mg/dL High 70-99 [facility] Comment on above: Performed By: #### M 200.1000, L509.7001, L101.9900, L501.6710 #### [facility] [address] [place], [address] Potassium [Moles/Vol] 3.3 mmol/L Normal 3.3-5.1 [facility] Comment on above: Performed By: #### M 200.1000, L509.7001, L101.9900, L501.6710 #### [facility] [address] [place], [address] Sodium [Moles/Vol] 139 mmol/L Normal 133-145 [facility] Comment on above: Performed By: #### M 200.1000, L509.7001, L101.9900, L501.6710 #### [facility] [address] [place], [address] Urea nitrogen [Mass/Vol] 8 mg/dL Normal 4-19 [facility] Comment on above: Performed By: #### M 200.1000, L509.7001, L101.9900, L501.6710 #### [facility] [address] [place], [address] Bilirubin Test strip Ql (U)O rdered By: Marta Black on 09-05-2024 Bilirubin Ql (U) Negative Negative [facility] CBC W/Diff, Automatedon 08-21 Absolute Lymph 0.96 X10 3/uL Normal 0.83-4.51 [facility] Comment on above: Performed By: #### M 200.1000, L509.7001, L101.9900, L501.6710 #### [facility] [address] [place], [address] Absolute Neut 7.6 X10 3/uL Normal 2.0-7.7 [facility] Comment on above: Performed By: #### M 200.1000, L509.7001, L101.9900, L501.6710 #### [facility] [address] [place], [address] Basophils/100 WBC (Bld) 0.7 % Normal 0-1 [facility] Comment on above: Performed By: #### M 200.1000, L509.7001, L101.9900, L501.6710 #### [facility] [address] [place], [address] Eosinophils/100 WBC (Bld) 4.0 % Normal 0-5 [facility] Comment on above: Performed By: #### M 200.1000, L509.7001, L101.9900, L501.6710 #### [facility] [address] [place], [address] Erythrocyte distribution width (RBC) [Ratio] 17.6 % High 11.6-14.6 [facility] Comment on above: Performed By: #### M 200.1000, L509.7001, L101.9900, L501.6710 #### [facility] [address] [place], [address] Hematocrit (Bld) [Volume fraction] 35.3 % Low 40-54 [facility] Comment on above: Performed By: #### M 200.1000, L509.7001, L101.9900, L501.6710 #### [facility] [address] [place], [address] Hemoglobin (Bld) [Mass/Vol] 11.3 g/dL Low 13.0-16.5 [facility] Comment on above: Performed By: #### M 200.1000, L509.7001, L101.9900, L501.6710 #### [facility] [address] [place], [address] IG% 0.400 Normal 0.0-0.9 [facility] Comment on above: Result Comment: IG% - Immature Granulocytes (promyelocytes, myelocytes and metamyelocytes) > 1% indicates that a LEFT SHIFT is Present. Performed By: #### M 200.1000, L509.7001, L101.9900, L501.6710 #### [facility] [address] [place], [address] Lymphocytes/100 WBC (Bld) 9.8 % Low 19-41 [facility] Comment on above: Performed By: #### M 200.1000, L509.7001, L101.9900, L501.6710 #### [facility] [address] [place], [address] MCH (RBC) [Entitic mass] 24.4 pg Low 27.0-32.0 [facility] Comment on above: Performed By: #### M 200.1000, L509.7001, L101.9900, L501.6710 #### [facility] [address] [place], [address] MCHC (RBC) [Mass/Vol] 32.0 g/dL Normal 32-36 [facility] Comment on above: Performed By: #### M 200.1000, L509.7001, L101.9900, L501.6710 #### [facility] [address] [place], [address] MCV (RBC) [Entitic vol] 76.2 fL Low 80-94 [facility] Comment on above: Performed By: #### M 200.1000, L509.7001, L101.9900, L501.6710 #### [facility] [address] [place], [address] Monocytes/100 WBC (Bld) 7.9 % Normal 0-10 [facility] Comment on above: Performed By: #### M 200.1000, L509.7001, L101.9900, L501.6710 #### [facility] [address] [place], [address] Neutrophils/100 WBC (Bld) 77.2 % High 47-70 [facility] Comment on above: Performed By: #### M 200.1000, L509.7001, L101.9900, L501.6710 #### [facility] [address] [place], [address] Nucleated RBC (Bld) [#/Vol] 0 10*3/uL Normal 0-5 [facility] Comment on above: Performed By: #### M 200.1000, L509.7001, L101.9900, L501.6710 #### [facility] [address] [place], [address] Platelet mean volume (Bld) [Entitic vol] 9.3 fL Normal 6.2-12.0 [facility] Comment on above: Performed By: #### M 200.1000, L509.7001, L101.9900, L501.6710 #### [facility] [address] [place], [address] Platelets (Bld) [#/Vol] 329 10*3/uL Normal 150-450 [facility] Comment on above: Performed By: #### M 200.1000, L509.7001, L101.9900, L501.6710 #### [facility] [address] [place], [address] RBC (Bld) [#/Vol] 4.63 10*6/uL Normal 4.6-6.2 [facility] Comment on above: Performed By: #### M 200.1000, L509.7001, L101.9900, L501.6710 #### [facility] [address] [place], [address] RDW SD 47.9 fl High 35.1-43.9 [facility] Comment on above: Performed By: #### M 200.1000, L509.7001, L101.9900, L501.6710 #### [facility] [address] [place], [address] WBC (Bld) [#/Vol] 9.8 10*3/uL Normal 4.4-11.0 [facility] Comment on above: Performed By: #### M 200.1000, L509.7001, L101.9900, L501.6710 #### [facility] [address] [place], [place], [address] Ketones Test strip Ql (U)Ord ered By: Marta Black on 09-05-2024 Ketones Ql (U) Negative Negative [facility] Microscopic analysis of urin e for red blood cells (RBC)Ordered By: Marta Black on 09-05-2024 Microscopic analysis of urine for red blood cells (RBC) 0-5 SEEN /hpf 0-5 [facility] Mucus LM Ql (Urine sed)Order ed By: Marta Black on 09-05-2024 Mucus Ql (Urine sed) 0 SEEN /hpf [facility] Nitrite Test strip Ql (U)Ord ered By: Marta Black on 09-05-2024 Nitrite Ql (U) Negative Negative [facility] Protein Test strip Ql (U)Ord ered By: Marta Black on 09-05-2024 Protein Ql (U) 15 mg/dl High Negative [facility] Prothrombin Time w/INRon INR Coag (PPP) [Relative time] 2.2 {INR} Normal [facility] Comment on above: Performed By: #### M 200.1000, L509.7001, L101.9900, L501.6710 #### [facility] [address] [place], [address] PT Coag (PPP) [Time] 24.7 s High 11.7-14.9 [facility] Comment on above: Performed By: #### M 200.1000, L509.7001, L101.9900, L501.6710 #### [facility] [address] [place], [address] Squamous epithelial cells de tection in urine sediment by light microscopyOrdered By: Marta Black on 09-05-2024 Epithelial cells.squamous LM Ql (Urine sed) 0 SEEN /hpf 0-5 [facility] Urinalysis, Completeon 09-05 BACTERIA RARE Normal None Seen [facility] Comment on above: Order Comment: CLEAN CATCH Performed By: #### M 200.1000, L509.7001, L101.9900, L501.6710 #### [facility] [address] [place], [address] RBC 0-5 SEEN Normal 0-5 [facility] Comment on above: Order Comment: CLEAN CATCH Performed By: #### M 200.1000, L509.7001, L101.9900, L501.6710 #### [facility] [address] [place], [address] WBC 0-5 SEEN Normal 0-5 [facility] Comment on above: Order Comment: CLEAN CATCH Performed By: #### M 200.1000, L509.7001, L101.9900, L501.6710 #### [facility] [address] [place], [address] BILIRUBIN URINE Negative Normal Negative [facility] Comment on above: Order Comment: CLEAN CATCH Performed By: #### M 200.1000, L509.7001, L101.9900, L501.6710 #### [facility] [address] [place], [address] Clarity (U) Clear Normal Clear [facility] Comment on above: Order Comment: CLEAN CATCH Performed By: #### M 200.1000, L509.7001, L101.9900, L501.6710 #### [facility] [address] [place], [address] Color (U) Straw Normal Yellow [facility] Comment on above: Order Comment: CLEAN CATCH Performed By: #### M 200.1000, L509.7001, L101.9900, L501.6710 #### [facility] [address] [place], [address] GLUCOSE, UR Normal Normal Normal [facility] Comment on above: Order Comment: CLEAN CATCH Performed By: #### M 200.1000, L509.7001, L101.9900, L501.6710 #### [facility] [address] [place], [address] KETONE UR Negative Normal Negative [facility] Comment on above: Order Comment: CLEAN CATCH Performed By: #### M 200.1000, L509.7001, L101.9900, L501.6710 #### [facility] [address] [place], [address] LEUK ESTERASE Negative Normal Negative [facility] Comment on above: Order Comment: CLEAN CATCH Performed By: #### M 200.1000, L509.7001, L101.9900, L501.6710 #### [facility] [address] [place], [address] Nitrite Ql (U) Negative Normal Negative [facility] Comment on above: Order Comment: CLEAN CATCH Performed By: #### M 200.1000, L509.7001, L101.9900, L501.6710 #### [facility] [address] [place], [address] OCCULT BLOOD-UR 25 /ul Abnormal Negative [facility] Comment on above: Order Comment: CLEAN CATCH Performed By: #### M 200.1000, L509.7001, L101.9900, L501.6710 #### [facility] [address] [place], [address] pH UR 7.0 Normal 5.0 - 8.0 [facility] Comment on above: Order Comment: CLEAN CATCH Performed By: #### M 200.1000, L509.7001, L101.9900, L501.6710 #### [facility] [address] [place], [address] PROT DIPSTX 15 mg/dl Abnormal Negative [facility] Comment on above: Order Comment: CLEAN CATCH Performed By: #### M 200.1000, L509.7001, L101.9900, L501.6710 #### [facility] [address] [place], [address] SP.GR. DIPSTX 1.005 Normal 1.002-1.03 0 [facility] Comment on above: Order Comment: CLEAN CATCH Performed By: #### M 200.1000, L509.7001, L101.9900, L501.6710 #### [facility] [address] [place], [address] UROBILI Normal Normal Normal [facility] Comment on above: Order Comment: CLEAN CATCH Performed By: #### M 200.1000, L509.7001, L101.9900, L501.6710 #### [facility] [address] [place], [address] EPI,SQUAMOUS 0 SEEN Normal 0-5 [facility] Comment on above: Order Comment: CLEAN CATCH Performed By: #### M 200.1000, L509.7001, L101.9900, L501.6710 #### [facility] [address] [place], [address] Mucus Ql (Urine sed) 0 SEEN Normal [facility] Comment on above: Order Comment: CLEAN CATCH Performed By: #### M 200.1000, L509.7001, L101.9900, L501.6710 #### [facility] [address] [place], [address] Urine clarityOrdered By: Magnolia Black on 09-05-2024 Clarity (U) Clear Clear [facility] Urine color determinationOrd ered By: Marta Black on 09-05-2024 Color (U) Straw Yellow [facility] Urine glucose detectionOrder ed By: Marta Black on 09-05-2024 Glucose Ql (U) Normal mg/dl Normal [facility] Urine leukocyte esterase det ection by dipstickOrdered By: Marta Black on 09-05-2024 Leukocyte esterase Test strip Ql (U) Negative Negative [facility] Urine pHOrdered By: Marta Black on 09-05-2024 pH (U) 7.0 [pH] 5.0 - 8.0 [facility] Urine sediment bacteria coun t by microscopy (number/high power field)Ordered By: Marta Black on 09-05-2024 Bacteria LM.HPF (Urine sed) [#/Area] RARE /hpf None Seen [facility] Urine specific gravity measu rementOrdered By: Marta Black on 09-05-2024 Specific gravity (U) [Rel density] 1.005 1.002-1.03 0 [facility] Urine urobilinogen measureme ntOrdered By: Marta Black on 09-05-2024 Urobilinogen Ql (U) Normal mg/dl Normal [facility] White blood cell countOrdere d By: Marta Black on 09-05-2024 White blood cell count 0-5 SEEN /hpf 0-5 [facility] Basic Metabolic Profile (BMP )on 09-04-2024 BUN/CRE 17.3 RATIO Normal 10-20 [facility] Comment on above: Performed By: #### M 200.1000, L509.7001, L101.9900, L501.6710 #### [facility] [address] [place], [address] Calcium [Mass/Vol] 8.2 mg/dL Normal 7.6-11.0 [facility] Comment on above: Performed By: #### M 200.1000, L509.7001, L101.9900, L501.6710 #### [facility] [address] [place], [address] Chloride [Moles/Vol] 107 mmol/L Normal 98-108 [facility] Comment on above: Performed By: #### M 200.1000, L509.7001, L101.9900, L501.6710 #### [facility] [address] [place], [address] CO2 [Moles/Vol] 20.9 mmol/L Low 21.0-32.0 [facility] Comment on above: Performed By: #### M 200.1000, L509.7001, L101.9900, L501.6710 #### [facility] [address] [place], [address] Creatinine [Mass/Vol] 0.72 mg/dL Normal 0.70-1.20 [facility] Comment on above: Performed By: #### M 200.1000, L509.7001, L101.9900, L501.6710 #### [facility] [address] [place], [address] ECRCL 64.10 ml/min Normal 50-250 [facility] Comment on above: Performed By: #### M 200.1000, L509.7001, L101.9900, L501.6710 #### [facility] [address] [place], [address] GAP 11 Normal 5-15 [facility] Comment on above: Performed By: #### M 200.1000, L509.7001, L101.9900, L501.6710 #### [facility] [address] [place], [address] GFR/1.73 sq M.predicted among non-blacks MDRD (S/P/Bld) [Vol rate/Area] 87 mL/min/{1.73_m2} Normal >60 [facility] Comment on above: Result Comment: mL/m in/1.73m2 CKD-EPI Creatinine Equation (2020) Performed By: #### M 200.1000, L509.7001, L101.9900, L501.6710 #### [facility] [address] [place], [address] Glucose [Mass/Vol] 120 mg/dL High 70-99 [facility] Comment on above: Performed By: #### M 200.1000, L509.7001, L101.9900, L501.6710 #### [facility] [address] [place], [address] Potassium [Moles/Vol] 3.5 mmol/L Normal 3.3-5.1 [facility] Comment on above: Performed By: #### M 200.1000, L509.7001, L101.9900, L501.6710 #### [facility] [address] [place], [address] Sodium [Moles/Vol] 139 mmol/L Normal 133-145 [facility] Comment on above: Performed By: #### M 200.1000, L509.7001, L101.9900, L501.6710 #### [facility] [address] [place], [address] Urea nitrogen [Mass/Vol] 12 mg/dL Normal 4-19 [facility] Comment on above: Performed By: #### M 200.1000, L509.7001, L101.9900, L501.6710 #### [facility] [address] [place], [address] CBC W/Diff, Automatedon 08-21-2024 Absolute Lymph 0.89 X10 3/uL Normal 0.83-4.51 [facility] Comment on above: Performed By: #### M 200.1000, L509.7001, L101.9900, L501.6710 #### [facility] [address] [place], [address] Absolute Neut 8.9 X10 3/uL High 2.0-7.7 [facility] Comment on above: Performed By: #### M 200.1000, L509.7001, L101.9900, L501.6710 #### [facility] [address] [place], [address] Basophils/100 WBC (Bld) 0.8 % Normal 0-1 [facility] Comment on above: Performed By: #### M 200.1000, L509.7001, L101.9900, L501.6710 #### [facility] [address] [place], [address] Eosinophils/100 WBC (Bld) 5.3 % High 0-5 [facility] Comment on above: Performed By: #### M 200.1000, L509.7001, L101.9900, L501.6710 #### [facility] [address] [place], [address] Erythrocyte distribution width (RBC) [Ratio] 17.5 % High 11.6-14.6 [facility] Comment on above: Performed By: #### M 200.1000, L509.7001, L101.9900, L501.6710 #### [facility] [address] [place], [address] Hematocrit (Bld) [Volume fraction] 33.3 % Low 40-54 [facility] Comment on above: Performed By: #### M 200.1000, L509.7001, L101.9900, L501.6710 #### [facility] [address] [place], [address] Hemoglobin (Bld) [Mass/Vol] 10.7 g/dL Low 13.0-16.5 [facility] Comment on above: Performed By: #### M 200.1000, L509.7001, L101.9900, L501.6710 #### [facility] [address] [place], [address] IG% 0.400 Normal 0.0-0.9 [facility] Comment on above: Result Comment: IG% - Immature Granulocytes (promyelocytes, myelocytes and metamyelocytes) > 1% indicates that a LEFT SHIFT is Present. Performed By: #### M 200.1000, L509.7001, L101.9900, L501.6710 #### [facility] [address] [place], [address] Lymphocytes/100 WBC (Bld) 7.8 % Low 19-41 [facility] Comment on above: Performed By: #### M 200.1000, L509.7001, L101.9900, L501.6710 #### [facility] [address] [place], [address] MCH (RBC) [Entitic mass] 24.6 pg Low 27.0-32.0 [facility] Comment on above: Performed By: #### M 200.1000, L509.7001, L101.9900, L501.6710 #### [facility] [address] [place], [address] MCHC (RBC) [Mass/Vol] 32.1 g/dL Normal 32-36 [facility] Comment on above: Performed By: #### M 200.1000, L509.7001, L101.9900, L501.6710 #### [facility] [address] [place], [address] MCV (RBC) [Entitic vol] 76.6 fL Low 80-94 [facility] Comment on above: Performed By: #### M 200.1000, L509.7001, L101.9900, L501.6710 #### [facility] [address] [place], [address] Monocytes/100 WBC (Bld) 7.7 % Normal 0-10 [facility] Comment on above: Performed By: #### M 200.1000, L509.7001, L101.9900, L501.6710 #### [facility] [address] [place], [address] Neutrophils/100 WBC (Bld) 78.0 % High 47-70 [facility] Comment on above: Performed By: #### M 200.1000, L509.7001, L101.9900, L501.6710 #### [facility] [address] [place], [address] Nucleated RBC (Bld) [#/Vol] 0 10*3/uL Normal 0-5 [facility] Comment on above: Performed By: #### M 200.1000, L509.7001, L101.9900, L501.6710 #### [facility] [address] [place], [address] Platelet mean volume (Bld) [Entitic vol] 10.6 fL Normal 6.2-12.0 [facility] Comment on above: Performed By: #### M 200.1000, L509.7001, L101.9900, L501.6710 #### [facility] [address] [place], [address] Platelets (Bld) [#/Vol] 305 10*3/uL Normal 150-450 [facility] Comment on above: Performed By: #### M 200.1000, L509.7001, L101.9900, L501.6710 #### [facility] [address] [place], [address] RBC (Bld) [#/Vol] 4.35 10*6/uL Low 4.6-6.2 [facility] Comment on above: Performed By: #### M 200.1000, L509.7001, L101.9900, L501.6710 #### [facility] [address] [place], [address] RDW SD 48.3 fl High 35.1-43.9 [facility] Comment on above: Performed By: #### M 200.1000, L509.7001, L101.9900, L501.6710 #### [facility] [address] [place], [address] WBC (Bld) [#/Vol] 11.4 10*3/uL High 4.4-11.0 [facility] Comment on above: Performed By: #### M 200.1000, L509.7001, L101.9900, L501.6710 #### [facility] [address] [place], [address] Prothrombin Time w/INRon INR Coag (PPP) [Relative time] 1.9 {INR} Normal [facility] Comment on above: Performed By: #### L 300.3900 #### [facility] [address] [place], [address] PT Coag (PPP) [Time] 21.8 s High 11.7-14.9 [facility] Comment on above: Performed By: #### L 300.3900 #### [facility] [address] [place], [address] Basic Metabolic Profile (BMP )on 09-03-2024 BUN/CRE 13.3 RATIO Normal 10-20 [facility] Comment on above: Performed By: #### M 200.1000, L509.7001, L101.9900, L501.6710 #### [facility] [address] [place], [address] Calcium [Mass/Vol] 8.5 mg/dL Normal 7.6-11.0 [facility] Comment on above: Performed By: #### M 200.1000, L509.7001, L101.9900, L501.6710 #### [facility] [address] [place], [address] Chloride [Moles/Vol] 104 mmol/L Normal 98-108 [facility] Comment on above: Performed By: #### M 200.1000, L509.7001, L101.9900, L501.6710 #### [facility] [address] [place], [address] CO2 [Moles/Vol] 19.1 mmol/L Low 21.0-32.0 [facility] Comment on above: Performed By: #### M 200.1000, L509.7001, L101.9900, L501.6710 #### [facility] [address] [place], [address] Creatinine [Mass/Vol] 0.74 mg/dL Normal 0.70-1.20 [facility] Comment on above: Performed By: #### M 200.1000, L509.7001, L101.9900, L501.6710 #### [facility] [address] [place], [address] ECRCL 64.10 ml/min Normal 50-250 [facility] Comment on above: Performed By: #### M 200.1000, L509.7001, L101.9900, L501.6710 #### [facility] [address] [place], [address] GAP 13 Normal 5-15 [facility] Comment on above: Performed By: #### M 200.1000, L509.7001, L101.9900, L501.6710 #### [facility] [address] [place], [address] GFR/1.73 sq M.predicted among non-blacks MDRD (S/P/Bld) [Vol rate/Area] 87 mL/min/{1.73_m2} Normal >60 [facility] Comment on above: Result Comment: mL/m in/1.73m2 CKD-EPI Creatinine Equation (2020) Performed By: #### M 200.1000, L509.7001, L101.9900, L501.6710 #### [facility] [address] [place], [address] Glucose [Mass/Vol] 111 mg/dL High 70-99 [facility] Comment on above: Performed By: #### M 200.1000, L509.7001, L101.9900, L501.6710 #### [facility] [address] [place], [address] Potassium [Moles/Vol] 3.5 mmol/L Normal 3.3-5.1 [facility] Comment on above: Performed By: #### M 200.1000, L509.7001, L101.9900, L501.6710 #### [facility] [address] [place], [address] Sodium [Moles/Vol] 137 mmol/L Normal 133-145 [facility] Comment on above: Performed By: #### M 200.1000, L509.7001, L101.9900, L501.6710 #### [facility] [address] [place], [address] Urea nitrogen [Mass/Vol] 10 mg/dL Normal 4-19 [facility] Comment on above: Performed By: #### M 200.1000, L509.7001, L101.9900, L501.6710 #### [facility] [address] [place], [address] CBC W/Diff, Automatedon 06-1 -2024 Absolute Lymph 0.82 X10 3/uL Low 0.83-4.51 [facility] Comment on above: Performed By: #### M 200.1000, L509.7001, L101.9900, L501.6710 #### [facility] [address] [place], [address] Absolute Neut 10.2 X10 3/uL High 2.0-7.7 [facility] Comment on above: Performed By: #### M 200.1000, L509.7001, L101.9900, L501.6710 #### [facility] [address] [place], [address] Basophils/100 WBC (Bld) 0.7 % Normal 0-1 [facility] Comment on above: Performed By: #### M 200.1000, L509.7001, L101.9900, L501.6710 #### [facility] [address] [place], [address] Eosinophils/100 WBC (Bld) 2.8 % Normal 0-5 [facility] Comment on above: Performed By: #### M 200.1000, L509.7001, L101.9900, L501.6710 #### [facility] [address] [place], [address] Erythrocyte distribution width (RBC) [Ratio] 17.5 % High 11.6-14.6 [facility] Comment on above: Performed By: #### M 200.1000, L509.7001, L101.9900, L501.6710 #### [facility] [address] [place], [address] Hematocrit (Bld) [Volume fraction] 35.6 % Low 40-54 [facility] Comment on above: Performed By: #### M 200.1000, L509.7001, L101.9900, L501.6710 #### [facility] [address] [place], [address] Hemoglobin (Bld) [Mass/Vol] 11.3 g/dL Low 13.0-16.5 [facility] Comment on above: Performed By: #### M 200.1000, L509.7001, L101.9900, L501.6710 #### [facility] [address] [place], [address] IG% 0.400 Normal 0.0-0.9 [facility] Comment on above: Result Comment: IG% - Immature Granulocytes (promyelocytes, myelocytes and metamyelocytes) > 1% indicates that a LEFT SHIFT is Present. Performed By: #### M 200.1000, L509.7001, L101.9900, L501.6710 #### [facility] [address] [place], [address] Lymphocytes/100 WBC (Bld) 6.7 % Low 19-41 [facility] Comment on above: Performed By: #### M 200.1000, L509.7001, L101.9900, L501.6710 #### [facility] [address] [place], [address] MCH (RBC) [Entitic mass] 24.7 pg Low 27.0-32.0 [facility] Comment on above: Performed By: #### M 200.1000, L509.7001, L101.9900, L501.6710 #### [facility] [address] [place], [address] MCHC (RBC) [Mass/Vol] 31.7 g/dL Low 32-36 [facility] Comment on above: Performed By: #### M 200.1000, L509.7001, L101.9900, L501.6710 #### [facility] [address] [place], [address] MCV (RBC) [Entitic vol] 77.7 fL Low 80-94 [facility] Comment on above: Performed By: #### M 200.1000, L509.7001, L101.9900, L501.6710 #### [facility] [address] [place], [address] Monocytes/100 WBC (Bld) 6.0 % Normal 0-10 [facility] Comment on above: Performed By: #### M 200.1000, L509.7001, L101.9900, L501.6710 #### [facility] [address] [place], [address] Neutrophils/100 WBC (Bld) 83.4 % High 47-70 [facility] Comment on above: Performed By: #### M 200.1000, L509.7001, L101.9900, L501.6710 #### [facility] [address] [place], [address] Nucleated RBC (Bld) [#/Vol] 0 10*3/uL Normal 0-5 [facility] Comment on above: Performed By: #### M 200.1000, L509.7001, L101.9900, L501.6710 #### [facility] [address] [place], [address] Platelet mean volume (Bld) [Entitic vol] 9.9 fL Normal 6.2-12.0 [facility] Comment on above: Performed By: #### M 200.1000, L509.7001, L101.9900, L501.6710 #### [facility] [address] [place], [address] Platelets (Bld) [#/Vol] 252 10*3/uL Normal 150-450 [facility] Comment on above: Performed By: #### M 200.1000, L509.7001, L101.9900, L501.6710 #### [facility] [address] [place], [address] RBC (Bld) [#/Vol] 4.58 10*6/uL Low 4.6-6.2 [facility] Comment on above: Performed By: #### M 200.1000, L509.7001, L101.9900, L501.6710 #### [facility] [address] [place], [address] RDW SD 48.2 fl High 35.1-43.9 [facility] Comment on above: Performed By: #### M 200.1000, L509.7001, L101.9900, L501.6710 #### [facility] [address] [place], [address] WBC (Bld) [#/Vol] 12.3 10*3/uL High 4.4-11.0 [facility] Comment on above: Performed By: #### M 200.1000, L509.7001, L101.9900, L501.6710 #### [facility] [address] [place], [address] Prothrombin Time w/INRon INR Coag (PPP) [Relative time] 1.8 {INR} Normal [facility] Comment on above: Performed By: #### L 300.3900 #### [facility] [address] [place], [address] PT Coag (PPP) [Time] 20.9 s High 11.7-14.9 [facility] Comment on above: Performed By: #### L 300.3900 #### [facility] [address] [place], [address] Trough vancomycin levelOrder ed By: Marta Black on 09-03-2024 Vancomycin trough [Mass/Vol] 8.2 ug/mL 5.0-15.0 [facility] Comment on above: Recommended goal [...] therapy recommended for serious lifethreatening infections include:- Mxscquacck-Uzgcsovadnze-Rkpkdjaek (Ventilator/Healtcare Associated)-Sepsis PLEASE CONTACT PHARMACY SERVICES (#[id number]) FOR INTERPRETATIONOF RESULTS. Vancomycin, Trough Levelon 0 09-03-2024 VANCO, TROUGH 8.2 ug/mL Normal 5.0-15.0 [facility] Comment on above: Order Comment: Comme nts: Trough to be drawn 30 mins prior to scheduled [id number] Result Comment: Ilya mmended goal trough ranges [...] (Ventilator/Healtcare Associated) -Sepsis PLEASE CONTACT PHARMACY SERVICES (#[id number]) FOR INTERPRETATION OF RESULTS. Performed By: #### M 200.1000, L509.7001, L101.9900, L501.6710 #### [facility] [address] [place], [address] Basic Metabolic Profile (BMP )on 09-02-2024 BUN/CRE 18.9 RATIO Normal 10-20 [facility] Comment on above: Performed By: #### M 200.1000, L509.7001, L101.9900, L501.6710 #### [facility] [address] [place], [address] Calcium [Mass/Vol] 8.5 mg/dL Normal 7.6-11.0 [facility] Comment on above: Performed By: #### M 200.1000, L509.7001, L101.9900, L501.6710 #### [facility] [address] [place], [address] Chloride [Moles/Vol] 105 mmol/L Normal 98-108 [facility] Comment on above: Performed By: #### M 200.1000, L509.7001, L101.9900, L501.6710 #### [facility] [address] [place], [address] CO2 [Moles/Vol] 14.2 mmol/L Low 21.0-32.0 [facility] Comment on above: Performed By: #### M 200.1000, L509.7001, L101.9900, L501.6710 #### [facility] [address] [place], [address] Creatinine [Mass/Vol] 0.75 mg/dL Normal 0.70-1.20 [facility] Comment on above: Performed By: #### M 200.1000, L509.7001, L101.9900, L501.6710 #### [facility] [address] [place], [address] ECRCL 64.10 ml/min Normal 50-250 [facility] Comment on above: Performed By: #### M 200.1000, L509.7001, L101.9900, L501.6710 #### [facility] [address] [place], [address] GAP 15 Normal 5-15 [facility] Comment on above: Performed By: #### M 200.1000, L509.7001, L101.9900, L501.6710 #### [facility] [address] [place], [place], [address] GFR/1.73 sq M.predicted among non-blacks MDRD (S/P/Bld) [Vol rate/Area] 86 mL/min/{1.73_m2} Normal >60 [facility] Comment on above: Result Comment: mL/m in/1.73m2 CKD-EPI Creatinine Equation (2020) Performed By: #### M 200.1000, L509.7001, L101.9900, L501.6710 #### [facility] [address] [place], [address] Glucose [Mass/Vol] 105 mg/dL High 70-99 [facility] Comment on above: Performed By: #### M 200.1000, L509.7001, L101.9900, L501.6710 #### [facility] [address] [place], [address] Potassium [Moles/Vol] 4.3 mmol/L Normal 3.3-5.1 [facility] Comment on above: Result Comment: Hemo lysis present, Results??could be affected. ?? Performed By: #### M 200.1000, L509.7001, L101.9900, L501.6710 #### [facility] [address] [place], [address] Sodium [Moles/Vol] 135 mmol/L Normal 133-145 [facility] Comment on above: Performed By: #### M 200.1000, L509.7001, L101.9900, L501.6710 #### [facility] [address] [place], [address] Urea nitrogen [Mass/Vol] 14 mg/dL Normal 4-19 [facility] Comment on above: Performed By: #### M 200.1000, L509.7001, L101.9900, L501.6710 #### [facility] [address] [place], [address] CBC W/Diff, Automatedon 06-03 25-2024 Absolute Lymph 0.52 X10 3/uL Low 0.83-4.51 [facility] Comment on above: Performed By: #### M 200.1000, L509.7001, L101.9900, L501.6710 #### [facility] [address] [place], [address] Absolute Neut 12.1 X10 3/uL High 2.0-7.7 [facility] Comment on above: Performed By: #### M 200.1000, L509.7001, L101.9900, L501.6710 #### [facility] [address] [place], [address] Basophils/100 WBC (Bld) 0.6 % Normal 0-1 [facility] Comment on above: Performed By: #### M 200.1000, L509.7001, L101.9900, L501.6710 #### [facility] [address] [place], [address] Eosinophils/100 WBC (Bld) 2.2 % Normal 0-5 [facility] Comment on above: Performed By: #### M 200.1000, L509.7001, L101.9900, L501.6710 #### [facility] [address] [place], [address] Erythrocyte distribution width (RBC) [Ratio] 17.8 % High 11.6-14.6 [facility] Comment on above: Performed By: #### M 200.1000, L509.7001, L101.9900, L501.6710 #### [facility] [address] [place], [address] Hematocrit (Bld) [Volume fraction] 39.9 % Low 40-54 [facility] Comment on above: Performed By: #### M 200.1000, L509.7001, L101.9900, L501.6710 #### [facility] [address] [place], [address] Hemoglobin (Bld) [Mass/Vol] 11.9 g/dL Low 13.0-16.5 [facility] Comment on above: Performed By: #### M 200.1000, L509.7001, L101.9900, L501.6710 #### [facility] [address] [place], [address] IG% 0.700 Normal 0.0-0.9 [facility] Comment on above: Result Comment: IG% - Immature Granulocytes (promyelocytes, myelocytes and metamyelocytes) > 1% indicates that a LEFT SHIFT is Present. Performed By: #### M 200.1000, L509.7001, L101.9900, L501.6710 #### [facility] [address] [place], [address] Lymphocytes/100 WBC (Bld) 3.8 % Low 19-41 [facility] Comment on above: Performed By: #### M 200.1000, L509.7001, L101.9900, L501.6710 #### [facility] [address] [place], [address] MCH (RBC) [Entitic mass] 24.5 pg Low 27.0-32.0 [facility] Comment on above: Performed By: #### M 200.1000, L509.7001, L101.9900, L501.6710 #### [facility] [address] [place], [address] MCHC (RBC) [Mass/Vol] 29.8 g/dL Low 32-36 [facility] Comment on above: Performed By: #### M 200.1000, L509.7001, L101.9900, L501.6710 #### [facility] [address] [place], [address] MCV (RBC) [Entitic vol] 82.3 fL Normal 80-94 [facility] Comment on above: Performed By: #### M 200.1000, L509.7001, L101.9900, L501.6710 #### [facility] [address] [place], [address] Monocytes/100 WBC (Bld) 4.8 % Normal 0-10 [facility] Comment on above: Performed By: #### M 200.1000, L509.7001, L101.9900, L501.6710 #### [facility] [address] [place], [address] Neutrophils/100 WBC (Bld) 87.9 % High 47-70 [facility] Comment on above: Performed By: #### M 200.1000, L509.7001, L101.9900, L501.6710 #### [facility] [address] [place], [address] Nucleated RBC (Bld) [#/Vol] 0 10*3/uL Normal 0-5 [facility] Comment on above: Performed By: #### M 200.1000, L509.7001, L101.9900, L501.6710 #### [facility] [address] [place], [address] Platelet mean volume (Bld) [Entitic vol] 10.6 fL Normal 6.2-12.0 [facility] Comment on above: Performed By: #### M 200.1000, L509.7001, L101.9900, L501.6710 #### [facility] [address] [place], [address] Platelets (Bld) [#/Vol] 227 10*3/uL Normal 150-450 [facility] Comment on above: Performed By: #### M 200.1000, L509.7001, L101.9900, L501.6710 #### [facility] [address] [place], [address] RBC (Bld) [#/Vol] 4.85 10*6/uL Normal 4.6-6.2 [facility] Comment on above: Performed By: #### M 200.1000, L509.7001, L101.9900, L501.6710 #### [facility] [address] [place], [address] RDW SD 52.3 fl High 35.1-43.9 [facility] Comment on above: Performed By: #### M 200.1000, L509.7001, L101.9900, L501.6710 #### [facility] [address] [place], [address] WBC (Bld) [#/Vol] 13.8 10*3/uL High 4.4-11.0 [facility] Comment on above: Performed By: #### M 200.1000, L509.7001, L101.9900, L501.6710 #### [facility] [address] [place], [address] Prothrombin Time w/INRon INR Coag (PPP) [Relative time] 1.9 {INR} Normal [facility] Comment on above: Performed By: #### M 200.1000, L509.7001, L101.9900, L501.6710 #### [facility] [address] [place], [address] PT Coag (PPP) [Time] 22.1 s High 11.7-14.9 [facility] Comment on above: Performed By: #### M 200.1000, L509.7001, L101.9900, L501.6710 #### [facility] [address] [place], [address] RESPIRATORY PANEL MOLECULARo n 09-02-2024 RP PANEL ADENOVIRUS Not Detected INFLUENZA A Not Detected INFLUENZA A (SUBTYPE H1) Not Detected INFLUENZA A (SUBTYPE H3) Not Detected INFLUENZA B Not Detected HUMAN METAPHNEUMO Not Detected PARAINFLUENZA 1 Not Detected PARAINFLUENZA 2 Not Detected PARAINFLUENZA 3 Not Detected PARAINFLUENZA 4 Not Detected RHINOVIRUS Not Detected RSV A Not Detected RSV B Not Detected Normal [facility] Comment on above: Performed By: #### M 200.1000, L509.7001, L101.9900, L501.6710 #### [facility] [address] [place], [address] Absolute lymphocyte countOrd ered By: Inderjit Gillespie on 09-01-2024 Lymphocytes Auto (Unsp spec) [#/Vol] 0.62 10*3/uL Low 0.83-4.51 [facility] Absolute neutrophil countOrd ered By: Inderjit Gillespie on 09-01-2024 Neutrophils (Bld) [#/Vol] 11.3 10*3/uL High 2.0-7.7 [facility] Anion gap in Serum or Plasma Ordered By: Inderjit Gillespie on 09-01-2024 Anion gap [Moles/Vol] 10 mmol/L 5-15 [facility] Automated lymphocyte count a s percentage of total leukocytesOrdered By: Inderjit Gillespie on 09-01-2024 Lymphocytes/100 WBC Auto (Unsp spec) 4.8 % Low 19-41 [facility] BUN/creatinine ratioOrdered By: Inderjit Gillespie on 09-01-2024 Urea nitrogen/Creatinine [Mass ratio] 21.6 mg/mg High 10-20 [facility] Basic Metabolic Profile (BMP )on 09-01-2024 BUN/CRE 21.6 RATIO High 10- [facility] Comment on above: Performed By: #### M 200.1000, L509.7001, L101.9900, L501.6710 #### [facility] [address] [place], [address] Calcium [Mass/Vol] 8.8 mg/dL Normal 7.6-11.0 [facility] Comment on above: Performed By: #### M 200.1000, L509.7001, L101.9900, L501.6710 #### [facility] [address] [place], [address] Chloride [Moles/Vol] 105 mmol/L Normal 98-108 [facility] Comment on above: Performed By: #### M 200.1000, L509.7001, L101.9900, L501.6710 #### [facility] [address] [place], [address] CO2 [Moles/Vol] 24.3 mmol/L Normal 21.0-32.0 [facility] Comment on above: Performed By: #### M 200.1000, L509.7001, L101.9900, L501.6710 #### [facility] [address] [place], [address] Creatinine [Mass/Vol] 0.77 mg/dL Normal 0.70-1.20 [facility] Comment on above: Performed By: #### M 200.1000, L509.7001, L101.9900, L501.6710 #### [facility] [address] [place], [address] ECRCL 68.71 ml/min Normal 50-250 [facility] Comment on above: Performed By: #### M 200.1000, L509.7001, L101.9900, L501.6710 #### [facility] [address] [place], [address] GAP 10 Normal 5-15 [facility] Comment on above: Performed By: #### M 200.1000, L509.7001, L101.9900, L501.6710 #### [facility] [address] [place], [address] GFR/1.73 sq M.predicted among non-blacks MDRD (S/P/Bld) [Vol rate/Area] 86 mL/min/{1.73_m2} Normal >60 [facility] Comment on above: Result Comment: mL/m in/1.73m2 CKD-EPI Creatinine Equation (2020) Performed By: #### M 200.1000, L509.7001, L101.9900, L501.6710 #### [facility] [address] [place], [address] Glucose [Mass/Vol] 112 mg/dL High 70-99 [facility] Comment on above: Performed By: #### M 200.1000, L509.7001, L101.9900, L501.6710 #### [facility] [address] [place], [address] Potassium [Moles/Vol] 3.7 mmol/L Normal 3.3-5.1 [facility] Comment on above: Performed By: #### M 200.1000, L509.7001, L101.9900, L501.6710 #### [facility] [address] [place], [address] Sodium [Moles/Vol] 139 mmol/L Normal 133-145 [facility] Comment on above: Performed By: #### M 200.1000, L509.7001, L101.9900, L501.6710 #### [facility] [address] [place], [address] Urea nitrogen [Mass/Vol] 17 mg/dL Normal 4-19 [facility] Comment on above: Performed By: #### M 200.1000, L509.7001, L101.9900, L501.6710 #### [facility] [address] [place], [address] Basophil percentageOrdered B y: Inderjit Gillespie on 09-01-2024 Basophils/100 WBC (Bld) 0.4 % 0-1 [facility] Bilirubin Test strip Ql (U)O rdered By: Inderjit Gillespie on 09-01-2024 Bilirubin Ql (U) Negative Negative [facility] Blood cultureOrdered By: Magnolia Black on 09-01-2024 Bacteria identified Cx Nom (Bld) No growth in 5 days. [facility] Brain/Head without Contrasto n 09-01-2024 Brain/Head without Contrast [facility] Imaging Services [address] [place] [address] Brain/Head without Contrast MR#: [id number] Acct: [id number] Name: ROBY FLORES Rep #: [id number] : 1935 M 89 From: Jose harris MD PCP: Dr. Stas Mora MD Status: REG ER Study: Brain/Head without Contrast Date of Exam: 08/21 05/17 Exam# [id number] Ordering Dr: Inderjit Gillespie MD PROCEDURE: BRAIN/HEAD [...] of the left maxillary sinus. Reading Location: [place] [address] CC: Dr. Inderjit Gillespie MD; Dr. Stas Mora MD Sales Representative Health Insurance: Signed Normal [facility] CBC W/Diff, Automatedon 08-21 Absolute Lymph 0.62 X10 3/uL Low 0.83-4.51 [facility] Comment on above: Performed By: #### M 200.1000, L509.7001, L101.9900, L501.6710 #### [facility] [address] [place], [address] Absolute Neut 11.3 X10 3/uL High 2.0-7.7 [facility] Comment on above: Performed By: #### M 200.1000, L509.7001, L101.9900, L501.6710 #### [facility] [address] [place], [address] Basophils/100 WBC (Bld) 0.4 % Normal 0-1 [facility] Comment on above: Performed By: #### M 200.1000, L509.7001, L101.9900, L501.6710 #### [facility] [address] [place], [address] Eosinophils/100 WBC (Bld) 1.2 % Normal 0-5 [facility] Comment on above: Performed By: #### M 200.1000, L509.7001, L101.9900, L501.6710 #### [facility] [address] [place], [address] Erythrocyte distribution width (RBC) [Ratio] 17.2 % High 11.6-14.6 [facility] Comment on above: Performed By: #### M 200.1000, L509.7001, L101.9900, L501.6710 #### [facility] [address] [place], [address] Hematocrit (Bld) [Volume fraction] 36.8 % Low 40-54 [facility] Comment on above: Performed By: #### M 200.1000, L509.7001, L101.9900, L501.6710 #### [facility] [address] [place], [address] Hemoglobin (Bld) [Mass/Vol] 11.6 g/dL Low 13.0-16.5 [facility] Comment on above: Performed By: #### M 200.1000, L509.7001, L101.9900, L501.6710 #### [facility] [address] [place], [address] IG% 0.400 Normal 0.0-0.9 [facility] Comment on above: Result Comment: IG% - Immature Granulocytes (promyelocytes, myelocytes and metamyelocytes) > 1% indicates that a LEFT SHIFT is Present. Performed By: #### M 200.1000, L509.7001, L101.9900, L501.6710 #### [facility] [address] [place], [address] Lymphocytes/100 WBC (Bld) 4.8 % Low 19-41 [facility] Comment on above: Performed By: #### M 200.1000, L509.7001, L101.9900, L501.6710 #### [facility] [address] [place], [address] MCH (RBC) [Entitic mass] 24.6 pg Low 27.0-32.0 [facility] Comment on above: Performed By: #### M 200.1000, L509.7001, L101.9900, L501.6710 #### [facility] [address] [place], [address] MCHC (RBC) [Mass/Vol] 31.5 g/dL Low 32-36 [facility] Comment on above: Performed By: #### M 200.1000, L509.7001, L101.9900, L501.6710 #### [facility] [address] [place], [address] MCV (RBC) [Entitic vol] 78.0 fL Low 80-94 [facility] Comment on above: Performed By: #### M 200.1000, L509.7001, L101.9900, L501.6710 #### [facility] [address] [place], [address] Monocytes/100 WBC (Bld) 5.7 % Normal 0-10 [facility] Comment on above: Performed By: #### M 200.1000, L509.7001, L101.9900, L501.6710 #### [facility] [address] [place], [address] Neutrophils/100 WBC (Bld) 87.5 % High 47-70 [facility] Comment on above: Performed By: #### M 200.1000, L509.7001, L101.9900, L501.6710 #### [facility] [address] [place], [address] Nucleated RBC (Bld) [#/Vol] 0 10*3/uL Normal 0-5 [facility] Comment on above: Performed By: #### M 200.1000, L509.7001, L101.9900, L501.6710 #### [facility] [address] [place], [address] Platelet mean volume (Bld) [Entitic vol] 9.4 fL Normal 6.2-12.0 [facility] Comment on above: Performed By: #### M 200.1000, L509.7001, L101.9900, L501.6710 #### [facility] [address] [place], [address] Platelets (Bld) [#/Vol] 258 10*3/uL Normal 150-450 [facility] Comment on above: Performed By: #### M 200.1000, L509.7001, L101.9900, L501.6710 #### [facility] [address] [place], [address] RBC (Bld) [#/Vol] 4.72 10*6/uL Normal 4.6-6.2 [facility] Comment on above: Performed By: #### M 200.1000, L509.7001, L101.9900, L501.6710 #### [facility] [address] [place], [address] RDW SD 48.2 fl High 35.1-43.9 [facility] Comment on above: Performed By: #### M 200.1000, L509.7001, L101.9900, L501.6710 #### [facility] [address] [place], [address] WBC (Bld) [#/Vol] 12.9 10*3/uL High 4.4-11.0 [facility] Comment on above: Performed By: #### M 200.1000, L509.7001, L101.9900, L501.6710 #### [facility] [address] [place], [address] CNPNon 09-01-2024 [facility] Telephone (PHMEWO) ROBY FLORES ([id number]) 1935 M Date Time Provider Department 09/01/24 RUSSELL AGUAYO PHMEWO During your visit today, we recorded the following information about you: Russell Aguayo [facility] 09/01/2024 10:01 AM Signed PCP reached out [...] affordable alvarado using Good Rx coupons. At [facility] (his current pharmacy), he can get a 1 mo supply for ~$30. If he switches the prescription to [facility], he can get a 1 mo supply for ~$20. See coupons below. Rivastigmine patches are also available via GoodRx. It appears the cheapest option is through [facility], in which he can get 30 patches for $52. Coupon also below. Sending to PCP to review and provide patient with coupon card information. Russell Aguayo, Saúl, [facility] Primary Care Clinical Pharmacist Memantine coupon at [facility] Memantine coupon at [facility] Rivastigmine patches coupon at [facility] Luciana Cisneros MD 09/01/2024 1:27 PM Signed Rahul Chau, Staff please let patient know what the pharmacist as opined on. 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, [address] COVID-19 virus antigen assay Ordered By: Marta Black on 09-01-2024 SARS-CoV-2 (COVID-19) Ag IA.rapid Ql (Resp) [facility] CRPon 09-01-2024 C-REACTIVE PROT 26.80 mg/L High 0.0-3.0 [facility] Comment on above: Performed By: #### M 200.1000, L509.7001, L101.9900, L501.6710 #### [facility] [address] [place], [address] Carbon dioxide, total [Moles /volume] in Central venous bloodOrdered By: Inderjit Gillespie on 09-01-2024 CO2 [Moles/Vol] 24.3 mmol/L 21.0-32.0 [facility] Chest 1 View (Portable)on Chest 1 View (Portable) [facility] Imaging Services [address] [place], [place] [address] Chest 1 View (Portable) MR#: [id number] Acct: [id number] Name: ROBY FLORES Rep #: [id number] : 1935 M 89 From: Jose harris MD PCP: Dr. Stas Mora MD Status: REG ER Study: Chest 1 View (Portable) Date of Exam: 09/01/24 Exam# [id number] Ordering Dr: Inderjit Gillespie MD PROCEDURE: CHEST [...] No acute abnormality is seen. Reading Location: [facility] CC: Dr. Inderjit Gillespie MD; Dr. Stas Mora MD Sales Representative Health Insurance: Signed Normal [facility] Chloride assayOrdered By: Aries Gillespie on 09-01-2024 Chloride [Moles/Vol] 105 mmol/L 98-108 [facility] Emergency Department Summary on 09-01-2024 Emergency Department Summary [facility] Medical Records Department [address] [place] [address] Emergency Department Summary 09/01/24 MR#: [id number] Acct: [id number] Name: ROBY FLORES Rep #: [id number] : 1935 89 From: Inderjit Gillespie MD [...] shoulders elbows and wrist. He has normal car parker strength. Neurologically he is awake alert. Answering [...] Air 09/01/24 (more content not included)... Normal [facility] Eosinophil percentageOrdered By: Inderjit Gillespie on 09-01-2024 Eosinophils/100 WBC (Bld) 1.2 % 0-5 [facility] Erythrocyte Sed Rateon 09-01 SED RATE 2 mm/hr Normal 0-20 [facility] Comment on above: Performed By: #### M 200.1000, L509.7001, L101.9900, L501.6710 #### [facility] [place], [address] Erythrocyte distribution wid th ratioOrdered By: Inderjit Gillespie on 09-01-2024 Erythrocyte distribution width (RBC) [Ratio] 17.2 % High 11.6-14.6 [facility] Erythrocyte distribution wid th standard deviationOrdered By: Inderjit Gillespie on 09-01-2024 Erythrocyte distribution width (RBC) [Ratio] 48.2 fl High 35.1-43.9 [facility] Erythrocyte sedimentation ra teOrdered By: Marta Black on 09-01-2024 ESR (Bld) [Velocity] 2 mm/h 0-20 [facility] Glomerular filtration rate ( GFR) estimation/1.73 sq m using serum, plasma, or whole bOrdered By: Inderjit Gillespie on 09-01-2024 GFR/1.73 sq M.predicted among non-blacks MDRD (S/P/Bld) [Vol rate/Area] 86 mL/min/{1.73_m2} >60 [facility] Comment on above: mL/min/1.73m2 CKD-EP I Creatinine Equation (2020) H AND P Exam - [facility] 09-01-2024 H&P Exam - Hospitalist [facility] Medical Records Department [address] [place] [address] H P Exam - Hospitalist 09/01/24 1018 MR#: [id number] Acct: [id number] Name: ROBY FLORES Rep #: [id number] : 1935 89 From: Kathy Wells MD PCP: Dr. Stas Mora MD Status:ADM GERMAN Location: [address] HPI - General General Date of [...] in the ED were BP of 180/89, MA of 87, RR of 18 and temp [...] weakness due to mechanical fall. [facility] Medical History Chronic anticoagulation TIA (transient [...] 99 Oxy (more content not included)... Normal [facility] Hematocrit Auto (Bld) [Volum e fraction]Ordered By: Inderjit Gillespie on 09-01-2024 Hematocrit (Bld) [Volume fraction] 36.8 % Low 40-54 [facility] Hemoglobin measurementOrdere d By: Inderjit Gillespie on 09-01-2024 Hemoglobin (Bld) [Mass/Vol] 11.6 g/dL Low 13.0-16.5 [facility] Hips B/L min 2 views w/ Pelv adolfo 09-01-2024 Hips B/L min 2 views w/ Pelvis [facility] Imaging Services [address] [place] [address] Hips B/L min 2 views w/ Pelvis MR#: [id number] Acct: [id number] Name: SANDRAROBY Radha Rep #: [id number] : 1935 M 89 From: Jose harris MD PCP: Dr. Stas Mora MD Status: REG ER Study: Hips B/L min 2 views w/ Pelvis Date of Exam: 0 09/01/24 Exam# [id number] Ordering Dr: Inderjit Gillespie MD PROCEDURE: HIPS [...] No fracture or dislocation present. Reading Location: [place] [address] CC: Dr. Inderjit Gillespie MD; Dr. Stas Mora MD Sales Representative Health Insurance: Signed Normal [facility] Immature granulocytes/100 WB C Auto (Bld)Ordered By: Inderjit Gillespie on 09-01-2024 Immature granulocytes/100 WBC (Bld) 0.400 % 0.0-0.9 [facility] Comment on above: IG% - Immature Granu locytes (promyelocytes, myelocytes and metamyelocytes) > 1% indicates that a LEFT SHIFT is Present. International normalized rat io (INR) calculationOrdered By: Inderjit Gillespie on 09-01-2024 INR Coag (Bld) [Relative time] 1.8 {INR} [facility] Ketones Test strip Ql (U)Ord ered By: Inderjit Gillespie on 09-01-2024 Ketones Ql (U) Negative Negative [facility] L509.7001on 09-01-2024 Procalcitonin 0.07 ng/mL Normal <=0.10 [facility] Comment on above: Result Comment: [...] #### M 200.1000, L509.7001, L101.9900, L501.6710 #### [facility] [address] [place], [address] MCV (mean corpuscular volume ) determinationOrdered By: Inderjit Gillespie on 09-01-2024 MCV (RBC) [Entitic vol] 78.0 fL Low 80-94 [facility] Mean corpuscular hemoglobin (MCH) determinationOrdered By: Inderjit Gillespie on 09-01-2024 MCH (RBC) [Entitic mass] 24.6 pg Low 27.0-32.0 [facility] Mean corpuscular hemoglobin concentration (MCHC) determinationOrdered By: Inderjit Gillespie on 09-01-2024 MCHC (RBC) [Mass/Vol] 31.5 g/dL Low 32-36 [facility] Mean platelet volume determi nationOrdered By: Inderjit Gillespie on 09-01-2024 Platelet mean volume (Bld) [Entitic vol] 9.4 fL 6.2-12.0 [facility] Microscopic analysis of urin e for red blood cells (RBC)Ordered By: Inderjit Gillespie on 09-01-2024 Microscopic analysis of urine for red blood cells (RBC) 0 SEEN /hpf 0- [facility] Monocyte percentageOrdered B y: Inderjit Gillespie on 09-01-2024 Monocytes/100 WBC (Bld) 5.7 % 0-10 [facility] Mucus LM Ql (Urine sed)Order ed By: Inderjit Gillespie on 09-01-2024 Mucus Ql (Urine sed) 0 SEEN /hpf [facility] Neutrophil percentageOrdered By: Inderjit Gillespie on 09-01-2024 Neutrophils/100 WBC (Bld) 87.5 % High 47-70 [facility] Nitrite Test strip Ql (U)Ord ered By: Inderjit Gillespie on 09-01-2024 Nitrite Ql (U) Negative Negative [facility] Nucleated red blood cell per centageOrdered By: Inderjit Gillespie on 09-01-2024 Nucleated RBC/100 WBC (Bld) [Ratio] 0 % 0-5 [facility] Platelet countOrdered By: Aries Gillespie on 09-01-2024 Platelets (Bld) [#/Vol] 258 10*3/uL 150-450 [facility] Potassium measurement (mass/ volume)Ordered By: Inderjit Gillespie on 09-01-2024 Potassium (Unsp spec) [Mass/Vol] 3.7 mmol/L 3.3-5.1 [facility] Procalcitonin [Mass/volume] in Serum or Plasma by ImmunoassayOrdered By: Marta Black on 09-01-2024 Procalcitonin IA [Mass/Vol] 0.07 ng/mL <0.11 [facility] Comment on above: Interpretation:<0.10 -0.25 [...] Protein Ql (U) 15 mg/dl High Negative [facility] Prothrombin Time w/INRon INR Coag (PPP) [Relative time] 1.8 {INR} Normal [facility] Comment on above: Performed By: #### M 200.1000, L509.7001, L101.9900, L501.6710 #### [facility] [address] [place], [address] PT Coag (PPP) [Time] 21.4 s High 11.7-14.9 [facility] Comment on above: Performed By: #### M 200.1000, L509.7001, L101.9900, L501.6710 #### [facility] [address] [place], [address] Prothrombin timeOrdered By: Inderjit Gillespie on 09-01-2024 PT Coag (PPP) [Time] 21.4 s High 11.7-14.9 [facility] RBC Auto (Bld) [#/Vol]Ordere d By: Inderjit Gillespie on 09-01-2024 RBC (Bld) [#/Vol] 4.72 10*6/uL 4.6-6.2 [facility] Respiratory pathogens detect ion panel by molecular detection methodOrdered By: Marta Black on 09-01-2024 Respiratory pathogens DNA and RNA panel LOLI+probe (Resp) [facility] Serum creatinine measurement (mass/volume)Ordered By: Inderjit Gillespie on 09-01-2024 Creatinine [Mass/Vol] 0.77 mg/dL 0.70-1.20 [facility] Serum glucose measurement (m ass/volume)Ordered By: Inderjit Gillespie on 09-01-2024 Glucose [Mass/Vol] 112 mg/dL High 70-99 [facility] Serum or plasma C reactive p rotein measurement (mass/volume)Ordered By: Marta Black on 09-01-2024 CRP [Mass/Vol] 26.80 mg/L High 0.0-3.0 [facility] Serum or plasma calcium alvaro urement (mass/volume)Ordered By: Inderjit Gillespie on 09-01-2024 Calcium [Mass/Vol] 8.8 mg/dL 7.6-11.0 [facility] Serum or plasma urea nitroge n measurement (mass/volume)Ordered By: Inderjit Gillespie on 09-01-2024 Urea nitrogen [Mass/Vol] 17 mg/dL 4-19 [facility] Sodium levelOrdered By: Inderjit Gillespie on 09-01-2024 Sodium [Moles/Vol] 139 mmol/L 133-145 [facility] Squamous epithelial cells de tection in urine sediment by light microscopyOrdered By: Inderjit Gillespie on 09-01-2024 Epithelial cells.squamous LM Ql (Urine sed) 0 SEEN /hpf 0-5 [facility] Urinalysis, Completeon 09-01 BACTERIA 0 SEEN Normal None Seen [facility] Comment on above: Order Comment: CLEAN CATCH Performed By: #### L 400.0001 #### [facility] [address] [place], [address] EPI,SQUAMOUS 0 SEEN Normal 0-5 [facility] Comment on above: Order Comment: CLEAN CATCH Performed By: #### L 400.0001 #### [facility] [address] [place], [place], [address] Mucus Ql (Urine sed) 0 SEEN Normal [facility] Comment on above: Order Comment: CLEAN CATCH Performed By: #### L 400.0001 #### [facility] [address] [place], [address] RBC 0 SEEN Normal 0-5 [facility] Comment on above: Order Comment: CLEAN CATCH Performed By: #### L 400.0001 #### [facility] [address] [place], [address] WBC 0 SEEN Normal 0-5 [facility] Comment on above: Order Comment: CLEAN CATCH Performed By: #### L 400.0001 #### [facility] [address] [place], [place], [address] Urine clarityOrdered By: Mario Gillespie on 09-01-2024 Clarity (U) Clear Clear [facility] Urine color determinationOrd ered By: Inderjit Gillespie on 09-01-2024 Color (U) Yellow Yellow [facility] Urine glucose detectionOrder ed By: Inderjit Gillespie on 09-01-2024 Glucose Ql (U) Normal mg/dl Normal [facility] Urine leukocyte esterase det ection by dipstickOrdered By: Inderjit Gillespie on 09-01-2024 Leukocyte esterase Test strip Ql (U) Negative Negative [facility] Urine pHOrdered By: Inderjit pack on 09-01-2024 pH (U) 8.0 [pH] 5.0 - 8.0 [facility] Urine sediment bacteria coun t by microscopy (number/high power field)Ordered By: Inderjit Gillespie on 09-01-2024 Bacteria LM.HPF (Urine sed) [#/Area] 0 /[HPF] None Seen [facility] Urine specific gravity measu rementOrdered By: Inderjit Gillespie on 09-01-2024 Specific gravity (U) [Rel density] 1.010 1.002-1.03 0 [facility] Urine urobilinogen measureme ntOrdered By: Inderjit Gillespie on 09-01-2024 Urobilinogen Ql (U) 4 mg/dl High Normal [facility] White blood cell (WBC) count Ordered By: Inderjit Gillespie on 09-01-2024 WBC (Bld) [#/Vol] 12.9 10*3/uL High 4.4-11.0 [facility] White blood cell countOrdere d By: Inderjit Gillespie on 09-01-2024 White blood cell count 0 SEEN /hpf 0-5 [facility] CNOVon 08-31-2024 CNOV Office Visit (RAMBOR ) SANDRAROBY E ([id number]) 1935 M Date Time Provider Department 08/31/24 [...] and believing his brother, who lives in [place], was present. Jaquan also thought he had a car in [facility] and wanted to retrieve it, despite not having a bobcat driver/labor's license or a car there. Additionally, he [...] tablet wa (more content not included)... Normal [facility] 08-31-2024 CNPN Telephone (PHAMTE) FLORESROBY ([id number]) 1935 M Date Time Provider Department 08/31/24 CORETTA JALLOH During your visit today, we recorded the following information about you: Coretta Jalloh riya 08/31/2024 2:13 PM Signed [facility] Anticoagulation Episode Summary Anticoagulation Care Providers Provider Role Specialty Phone number Stas Mora MD Referring Family Medicine [phone] Roby Garcia Sandra is a 89 year [...] No Known Allergies Indication for Warfarin: terminal carman current use of anticoagulant Paroxysmal atrial fibrillation [...] Pharmacy Anticoagulation Clinic [facility] Pager: [phone]. Coretta Jalloh RPh 09/28/2024 11:30 AM Signed Per TE on 09/21, pt is in [facility] living for rehab. He has been for for nearly 3 weeks now. Will check back next week before we call Maria Guadalupe. Will watch for notes of discharge. Coretta Jalloh [facility] Hakan Jallohantha [facility] 10/05/2024 2:05 PM Signed Spoke to Maria Guadalupe. She said he is at an [facility] Facility and they are managing his AC but she isn't aware of results. She isn't sure of discharge timing. She said maybe check back in a few weeks. Will check back in October for any updates. Coretta Jalloh [facility] Adrian ([employer])Elana 10/27/2024 4:17 PM Signed Updating PCC LTC / Rehab list. Called and stp patient's significant other, Maria Guadalupe. She stated patient is still in SNF at this time. She was agreeable to f/u in a few weeks. Tracker updated for f/u in 2-3 weeks. Elana Campbell CPhT ([place]) [facility] Satish ([employer])Parmjit 11/25/2024 3:45 PM Signed Left message requesting an update. Patient has appt with PCP 12/05. Will update tracker to that day to see if there are any updates. Adrian ([employer])Elana 12/08/2024 4:41 PM Signed Updating PCC LTC / Rehab list. Attempted to call patient's caregiver, Maria Guadalupe, to get update on LTC/SNF status. Message left requesting a return call to [phone], option 2. Elana Campbell CPhT ([facility]) [facility] Adrian ([employer]), Elana 12/22/2024 3:52 PM Signed Updating PCC LTC / Rehab list. Attempted to call patient's caregiver, Maria Guadalupe, to get update on LTC/SNF status. Message left requesting a return call to [phone], option 2. Elana Campbell CPhT ([facility]) [facility] Adrian ([employer]), Elana 12/29/2024 5:26 PM Signed Updating PCC LTC / Rehab list. Attempted to call patient's caregiver, Maria Guadalupe, to get update on LTC/SNF status. Message left requesting a return call to [phone], option 2. Elana Campbell CPhT ([facility]) [facility] Adrian ([employer]), (more content not included)... Normal [facility] PT panel Coag (PPP)on 2024 INR Coag (PPP) [Relative time] 1.9 {INR} High 0.9-1.3 [facility] Comment on above: Order Comment: Stone parmar Type: BLOOD SPECIMENOrdering Facility: [facility] Address: [address] [place] [address] Result Comment: Mary min K Antagonist (VKA) Therapeutic Range: INR 2 to 3 (Target INR of 2.5) Note: For patients treated with VKA drugs, such as warfarin, the [place] [employer] 2012 Guideline recommends [...] Chest 2012, 141:7S-47S Avel RA, et al. [facility] 2017, 70: 252-289 Performed By: #### 3 4528-0 ####[facility] HOSPITALNCRachel [id number] [place] [address] [place] PT Coag (PPP) [Time] 19.2 s High <13.1 [facility] Comment on above: Order Comment: Stone parmar Type: BLOOD SPECIMENOrdering Facility: [facility] Address: [address] [place] [address] Performed By: #### 3 4528-0 ####[facility]OSPITALJERMAIN [id number] [place] [id number] [place] Gene 08-03-2024 CNPN Telephone (PHAMTE) ROBY FLORES ([id number]) 1935 M Date Time Provider Department 08/03/24 CORETTA JALLOH During your visit today, we recorded the following information about you: Coretta Jalloh [facility] 08/03/2024 10:52 AM Signed [facility] Anticoagulation Episode Summary Anticoagulation Care Providers Provider Role Specialty Phone number Stas Mora MD Referring Family Medicine [phone] Roby Flores is a 88 year old [...] ALLERGIES No Known Allergies Indication for Warfarin: [facility] current use of 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 Coretta Jalloh [facility] Clinical Pharmacist, Pharmacy Anticoagulation Clinic Pharmacy Anticoagulation Clinic Pager: [phone]. Adrian ([employer])Elana 08/03/2024 11:01 AM Signed PATIENT CALL Patient [...] 08/31/2024 Caregiver verbalized understanding. Will route to [facility] as FYI. Elana Campbell ([employer]) Coretta Jalloh riya 08/03/2024 11:20 AM Signed I have reviewed the below recommendations and agree with plan. 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] 04/24/2011 [facility] current use of anticoagulant [Z79.01]09/22/2016 Paroxysmal atrial fibrillation (HCC) [I48.0] 09/22/2016 Hyperlipidemia [E78.5] 08/26/2022 Encounter Status:Closed by OCRETTA JALLOH on 08/03/24 Normal [facility] PT panel Coag (PPP)on 2024 INR Coag (PPP) [Relative time] 2.5 {INR} High 0.9-1.3 [facility] Comment on above: Order Comment: Speci men Type: BLOOD SPECIMEN [facility] Address: [address] [place] [address] Result Comment: Mary min K Antagonist (VKA) Therapeutic Range: INR 2 to 3 (Target INR of 2.5) Note: For patients treated with VKA drugs, such as warfarin, the [place] [employer] 2012 Guideline recommends [...] Chest 2012, 141:7S-47S Avel RA, et al. [facility] 2017, 70: 252-289 Performed By: #### 3 4528-0 #### [facility]OSPITALIA [id number] [address] [place] [address] [place] PT Coag (PPP) [Time] 24.3 s High <13.1 [facility] Comment on above: Order Comment: Speci men Type: BLOOD SPECIMEN [facility] Address: [address] [place] [address] Performed By: #### 3 4528-0 #### [facility]ITAL[facility] [id number] [address] [place] [address] OF [facility] CNOVon 07-28-2024 CNOV Office Visit (QUIQUEPWS ) ROBY FLORES ([id number]) 1935 M Date Time Provider Department 07/28/24 [...] Coronary atherosclerosis of unspecified type of vessel, picayune or graft Coronary artery disease Other and [...] Histories independently gathered by the clinical support teacher and the remaining scribed note accurately describes [...] - Fully Assessed Reason for Visit: Lump [52515] Cmt: Elbow Primary Visit Diagnosis:Bursitis of right elbow, unspecified bursa [M70.31] Prescriptions as of 07/28/2024 - memantine (NAMENDA) 10 mg tablet Take 1 tablet by mouth two times a day. - atorvastatin (LIPITOR) 40 mg tablet Take 1 tablet by mouth daily at bedtime. - warfarin (COUMADIN) 2.5 mg tablet Take as directed (more content not included)... 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 Gene 07-06-2024 CNPN Telephone (PHAMTE) SANDRAROBY Garcia ([id number]) 1935 M Date Time Provider Department 07/06/24 CORETTA JALLOH During your visit today, we recorded the following information about you: Coretta Jalloh RPh 07/06/2024 10:16 AM Signed [facility] Anticoagulation Episode Summary Anticoagulation Care Providers Provider Role Specialty Phone number Stas Mora MD Referring Family Medicine [phone] Roby Radha Flores is a 88 year [...] ALLERGIES No Known Allergies Indication for Warfarin: [facility] current use of 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 Coretta Jalloh [facility] Clinical Pharmacist, Pharmacy Anticoagulation Clinic Pharmacy Anticoagulation Clinic Pager: [phone]. 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] 04/24/2011 terminal carman current use of anticoagulant [Z79.01]09/22/2016 Paroxysmal atrial fibrillation (HCC) [I48.0] 09/22/2016 Hyperlipidemia [E78.5] 08/26/2022 Encounter Status:Closed by CORETTA JALLOH on 07/06/24 Normal [facility] PT panel Coag (PPP)on 2024 INR Coag (PPP) [Relative time] 2.1 {INR} High 0.9-1.3 [facility] Comment on above: Order Comment: Speci men Type: BLOOD SPECIMENOrdering Facility: [facility] Address: [address] [place] [address] Result Comment: Mary min K Antagonist (VKA) Therapeutic Range: INR 2 to 3 (Target INR of 2.5) Note: For patients treated with VKA drugs, such as warfarin, the [place] [employer] 2012 Guideline recommends [...] Chest 2012, 141:7S-47S Avel RA, et al. [facility] 2017, 70: 252-289 Performed By: #### 3 4528-0 ####[facility] CLINENCLIZZ [id number] [place] [address] [place] PT Coag (PPP) [Time] 21.0 s High <13.1 [facility] Comment on above: Order Comment: Speci men Type: BLOOD SPECIMENOrdering Facility: [facility] Address: [address] [place] [address] Performed By: #### 3 4528-0 ####[facility]ITALALEKS CLINENCLIA [id number] [address] [place] CNPNon 06-29-2024 CNPN Telephone (PHAMTE) ROBY FLORES ([id number]) 1935 M Date Time Provider Department 06/29/24 CORETTA JALLOH During your visit today, we recorded the following information about you: Coretta Jalloh RPh 06/29/2024 9:54 AM Signed [facility] Anticoagulation Episode Summary Anticoagulation Care Providers Provider Role Specialty Phone number Stas Mora MD Referring Family Medicine [phone] Roby Martinezenter is a 88 year old [...] ALLERGIES No Known Allergies Indication for Warfarin: [facility] current use of anticoagulant Paroxysmal atrial fibrillation (hcc) Anticoagulation Episode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 Cunningham on 02-10-2023 Color (U) Yellow Yellow [facility] Urine glucose detectionOrder ed By: Brian Cunningham on 02-10-2023 Glucose Ql (U) Normal mg/dl Normal [facility] Urine leukocyte esterase det ection by dipstickOrdered By: Brian Cunningham on 02-10-2023 Leukocyte esterase Test strip Ql (U) 25 /ul Negative [facility] Urine pHOrdered By: Brian swain on 02-10-2023 pH (U) 6.5 [pH] 5.0 - 8.0 [facility] Urine sediment bacteria coun t by microscopy (number/high power field)Ordered By: Brian Cunningham on 02-10-2023 Bacteria LM.HPF (Urine sed) [#/Area] 0 /[HPF] None Seen [facility] Urine specific gravity measu rementOrdered By: Brian Cunningham on 02-10-2023 Specific gravity (U) [Rel density] 1.015 1.002-1.03 0 [facility] Urobilinogen Auto test strip Ql (U)Ordered By: Brian Cunningham on 02-10-2023 Urobilinogen Ql (U) 4 mg/dl Normal [facility] CT HEAD OR BRAIN W/O CONTRAS [...] PM Ordering Provider: STERLING LYNCH [facility] ([place]) XR Pelvis and Hip - left AP and Lateral frogon 05-21-2022 IMPRESSION: No acute fracture or hip dislocation Sales Representative Health Insurance[facility] Transcribe Date/Time: May 21 2022 3:41P Dictated by : JUDY MCKENZIE MD This examination was interpreted and the report reviewed and electronically signed by: JUDY MCKENZIE MD on May 21 2022 3:43PM [facility] DIVISION OF RADIOLOGY * * [...] DIVISION OF RADIOLOGY Provider, [facility] Kari [facility] - 05/21/2022 * * *Final Report* * [...] IMPRESSION: No acute fracture or hip dislocation Sales Representative Health Insurance: [employer] Transcribe Date/Time: May 21 2022 3:41P Dictated by : JUDY MCKENZIE MD This examination was interpreted and the report reviewed and electronically signed by: JUDY MCKENZIE MD on May 21 2022 3:43PM [facility] Radiology Study observation (narrative) [facility] XR Pelvis and Hip - left AP and Lateral frogOrdered By: Ccf Provider on 05-21-2022 [facility] PT panel Coag (PPP)on 2022 INR Coag (Bld) [Relative time] 1.7 {INR} [facility] Basophil percentageon 2021 Cholesterol [Mass/Vol] 152 mg/dL <200 [facility] Work Phone: Comment on above: <200 mg/dL Desirable 200-240 mg/dL Borderline >240 mg/dL High Risk Triglyceride [Mass/Vol] 76 mg/dL <199 [facility] Work Phone: Comment on above: The drugs N-Acetylcy steine and Metamizole may falsely depress this assay.Serum Triglycerides Reference Interval Normal <150 mg/dL Borderline high 150 - 199 mg/dL High 200 - 499 mg/dL Very High > or = 500 mg/dL INR in Blood by Coagulation assayon 12-22-2021 INR Coag (Bld) [Relative time] 2.5 {INR} [facility] Work Phone: Laboratory - Chemistry and C hemistry - challengeon 12-22-2021 Magnesium [Mass/Vol] 2.1 mg/dL 1.6-2.6 [facility] Work Phone: Laboratory - Coagulationon 1 PT Coag (PPP) [Time] 27.0 s 11.7-14.9 [facility] Work Phone: No Panel Informationon 12-22 Thyroid Stimulating Hormone (TSH) 0.42 uIU/mL 0.358-3.74 [facility] Work Phone: Serum or plasma cholesterol in HDL measurement (mass/volume)on 12-22-2021 Cholesterol in HDL [Mass/Vol] 35 mg/dL >40 [facility] Work Phone: Comment on above: The drugs N-Acetylcy steine and Metamizole may falsely depress this assay. Reference Range HDL <40 mg/dL Low HDL Cholesterol HDL >or= 60 mg/dL High HDL Cholesterol Serum or plasma cholesterol in VLDL measurement (mass/volume)on 12-22-2021 Cholesterol in VLDL [Mass/Vol] 15 mg/dL 5-40 [facility] Work Phone: Serum or plasma low density lipoprotein (LDL) cholesterol measurement (mass/volume)on 12-22-2021 Cholesterol in LDL [Mass/Vol] 102 mg/dL 0-130 [facility] Work Phone: Whole blood hemoglobin A1c/t otal hemoglobin ratio (mass fraction)on 12-22-2021 HbA1c (Bld) [Mass fraction] 5.9 % 3.8-5.6 [facility] Work Phone: Comment on above: Normal < 5.7 % Predi abetic 5.7 - 6.4 % Diabetic >or= 6.5 % Please note range changes. Absolute lymphocyte counton 12-21-2021 Lymphocytes Auto (Unsp spec) [#/Vol] 1.23 10*3/uL 0.83-4.51 [facility] Work Phone: Basophil percentageon 2021 Basophils/100 WBC (Bld) 0.4 % 0-1 [facility] Work Phone: Chloride [Moles/Vol] 106 mmol/L 98-107 [facility] Work Phone: Eosinophils/100 WBC (Bld) 1.4 % 0-5 [facility] Work Phone: Glucose [Mass/Vol] 107 mg/dL 74-106 [facility] Work Phone: Comment on above: Fasting Glucose resu lt from 100 to 125 mg/dL suggests IMPAIRED HOMEOSTASIS per A.D.A. criteria. Neutrophils (Bld) [#/Vol] 5.7 10*3/uL 2.0-7.7 [facility] Work Phone: [phone] Neutrophils/100 WBC (Bld) 72.4 % 47-70 [facility] Work Phone: Potassium [Moles/Vol] 3.7 mmol/L 3.5-5.1 [facility]: Sodium [Moles/Vol] 141 mmol/L 136-145 [facility] Work Phone: WBC (Bld) [#/Vol] 7.9 10*3/uL 4.4-11.0 [facility] Work Phone: [phone] Blood erythrocytes count (nu mber/volume)on 12-21-2021 RBC (Bld) [#/Vol] 4.85 10*6/uL 4.6-6.2 [facility] Work Phone: Blood hemoglobin measurement (mass/volume)on 12-21-2021 Hemoglobin (Bld) [Mass/Vol] 14.5 g/dL 13.0-16.5 [facility] Work Phone: [phone] Blood lymphocytes/100 leukoc yteson 12-21-2021 Lymphocytes/100 WBC (Bld) 15.5 % 19-41 [facility] Work Phone: Blood monocytes/100 leukocyt eson 12-21-2021 Monocytes/100 WBC (Bld) 9.9 % 0-10 [facility] Work Phone: Blood platelet mean volumeon 12-21-2021 Platelet mean volume (Bld) [Entitic vol] 10.2 fL 6.2-12.0 [facility] Work Phone: Determination of erythrocyte mean corpuscular volume (MCV)on 12-21-2021 MCV (RBC) [Entitic vol] 92.0 fL 80-94 [facility] Work Phone: Hematocrit Auto (Bld) [Volum e fraction]on 12-21-2021 Hematocrit (Bld) [Volume fraction] 44.6 % 40-54 [facility] Work Phone: INR in Blood by Coagulation assayon 12-21-2021 INR Coag (Bld) [Relative time] 2.3 {INR} [facility] Work Phone: Laboratory - Chemistry and C hemistry - challengeon 12-21-2021 CO2 [Moles/Vol] 29.0 mmol/L 21.0-32.0 [facility] Work Phone: Urea nitrogen/Creatinine [Mass ratio] 21.8 mg/mg 10-20 [facility] Work Phone: Laboratory - Coagulationon 1 aPTT Coag (Bld) [Time] 36.6 s 24.1-36.2 [facility] Work Phone: PT Coag (PPP) [Time] 24.7 s 11.7-14.9 [facility] Work Phone: Laboratory - Hematology and Cell countson 12-21-2021 Erythrocyte distribution width (RBC) [Entitic vol] 42.2 fL 35.1-43.9 [facility] Work Phone: Erythrocyte distribution width (RBC) [Ratio] 12.5 % 11.6-14.6 [facility] Work Phone: Immature granulocytes/100 WBC (Bld) 0.400 % 0.0-0.9 [facility] Work Phone: Comment on above: IG% - Immature Granu locytes (promyelocytes, myelocytes and metamyelocytes) > 1% indicates that a LEFT SHIFT is Present. MCH (RBC) [Entitic mass] 29.9 pg 27.0-32.0 [facility] Work Phone: Nucleated RBC/100 WBC (Bld) [Ratio] 0 % 0-5 [facility] Work Phone: MCHC Auto (RBC) [Mass/Vol]on 12-21-2021 MCHC (RBC) [Mass/Vol] 32.5 g/dL 32-36 [facility] Work Phone: No Panel Informationon 12-21 Estimated Creatinine Clearance Calc 66.90 ml/min [facility] Work Phone: Estimated GFR (MDRD) Amer 107 mL/min >60 [facility] Work Phone: Comment on above: GFR Calc Estimated GFR (MDRD) Non-Af Amer 88 mL/min >60 [facility] Work Phone: Comment on above: Non- GFR Calc Troponin I High Sensitivity 13 pg/mL 3.0-78.0 [facility] Work Phone: Comment on above: Please Note: New [place] Units and Gender Specific Reference Ranges. For more information see Policy Stat Procedure [place] High Sensitivity Troponin (TNIH) and attachments. Platelets bldon 12-21-2021 Platelets (Bld) [#/Vol] 241 10*3/uL 150-450 [facility] Work Phone: Serum or plasma calcium alvaro urement (mass/volume)on 12-21-2021 Calcium [Mass/Vol] 9.2 mg/dL 8.5-10.1 [facility] Work Phone: Serum or plasma creatinine m easurement (mass/volume)on 12-21-2021 Creatinine [Mass/Vol] 0.87 mg/dL 0.70-1.30 [facility] Work Phone: Comment on above: The validity of the calculated GFR & GFRAA in patients over 70 years has not been determined. Clinical correlation is essential. Serum or plasma urea nitroge n measurement (mass/volume)on 12-21-2021 Urea nitrogen [Mass/Vol] 19 mg/dL 10-07 [facility] Work Phone: Thin prep Papanicolaou smear with manual screeningon 12-21-2021 Thin prep Papanicolaou smear with manual screening 6 08-04 [facility] Work Phone: CBC panel Auto (Bld)on 07-08 Erythrocyte distribution width (RBC) [Ratio] 13.1 % 11.5 - 15.0 % [facility] Hematocrit (Bld) [Volume fraction] 49.5 % 39.0 - 51.0 % [facility] Hemoglobin (Bld) [Mass/Vol] 15.9 g/dL 13.0 - 17.0 g/dL [facility] MCH (RBC) [Entitic mass] 29.6 pg 26.0 - 34.0 pg [facility] MCHC (RBC) [Mass/Vol] 32.1 g/dL 30.5 - 36.0 g/dL [facility] MCV (RBC) [Entitic vol] 92.2 fL 80.0 - 100.0 fL [facility] Nucleated RBC (Bld) [#/Vol] 10*3/uL <0.01 k/uL [facility] Platelet mean volume (Bld) [Entitic vol] 10.7 fL 9.0 - 12.7 fL [facility] Platelets (Bld) [#/Vol] 235 10*3/uL 150 - 400 k/uL [facility] RBC (Bld) [#/Vol] 5.37 10*6/uL 4.20 - 6.00 m/uL [facility] WBC (Bld) [#/Vol] 10.33 10*3/uL 3.70 - 11.00 k/uL [facility] XR Lumbar spine 3 Viewson IMPRESSION: 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 Sales Representative Health Insurance: [employer] Transcribe Date/Time: Mar 13 2020 8:34A [...] spine are presented. FINDINGS: There are five knf-jry-ejyketi lumbar vertebrae. No fracture or subluxations are noted. L5-S1 disc space narrowing is demonstrated. There is significant osteophyte formation. Kissing spine seen on lateral view. DIVISION OF RADIOLOGY Provider, Richie [facility] - 03/13/2020 * * *Final Report* * [...] spine are presented. FINDINGS: There are five jnu-jyp-gssqadg lumbar vertebrae. No fracture or subluxations are noted. L5-S1 disc space narrowing is demonstrated. There is significant osteophyte formation. Kissing spine seen on lateral view. 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 Sales Representative Health Insurance: [employer] Transcribe Date/Time: Mar 13 2020 8:34A Dictated by : GABRIELLE BENTLEY MD This examination was interpreted and the report reviewed and electronically signed by: GABRIELLE BENTLEY MD on Mar 13 2020 8:35AM EST [facility] XR Lumbar spine 3 ViewsOrder ed By: Ccf Provider on 03-13-2020 [facility] XR Lumbar spine 3 Viewson Radiology Study observation (narrative) [facility] PROGRESSon 06-09-2017 PROGRESS HNO ID: [id number] Author: Vesta Marin PSR Service: (none) Author Type: (none) Type: Progress Notes Filed: 06/09/2017 4:13 PM Note Text: Spoke with the patient and scheduled his Corotid Doppler on June 24, 2017 at 9:00 am Normal [facility] CNOVon 06-02-2017 CNOV Office Visit (AGCARDWST) -------ROBY FLORES ([id number]) 1935 [facility] Time Provider Department06/02/17 9:00 AM DARRELL OLIVEIRA [...] - METBeta jazmin for ASHD with prior MS or prior LVEFANDlt;40 (NQF 0070) - N/ABeta [...] weeks.He will be getting labs from the [facility] in the near future and I've askedfor a copy.INR has been within range. He is due today.I will see him in 8 months or as needed. If there is increased chest pain orrecurrent syncope, he has been advised to contact me.Written and verbal health teaching given to patient, patient verbalizesunderstanding and agrees with treatment plan.This note was generated using [employer] voice recognition system, and there may besome [...] no significantchange.Electronic ally Signed:Darrell Oliveira, [facility] 2017 9:15 [facility]: Carmen Vasquez MD 06/02/2017 9:21 AM [...] 24, 2017 at9:00 amReferring Provider: DARRELL OLIVEIRA [[id number]]Allergies As of Date: 06/02/2017(No Known Allergies)Date Reviewed: 06/02/2017Reviewed by: Russell Breaux) Anabella - Fully AssessedReason for Visit: Recheck [92]Primary Visit Diagnosis:ASHD (arteriosclerotic heart disease) [I25.10] Other Visit Diagnosis:PAF (paroxysmal atrial fibrillation) ([facility]) [I48.0]Order(s):ECG B/O W INTERP (MED OFFICE) [ECG06] Order #: [id number] Fosinopril Sodium 40 mg tabletTake 1/2 tablet [...] FOR* 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 Please give serious thought to the following areas and commit to making usp changes. EAT A WHOLE FOOD, PLANT BASED [...] on file. Cosign accepted by STAS MORA MD[[id number]] on 09/30/2016 2:01 PM Fosinopril Sodium 40 [...] on file.Follow-up and Disposition History RecordedEncounter Number: [id number] Status:Closed by DARRELL OLIVEIRA MD on 06/02/17 [facility] PROGRESSon 06-02-2017 PROGRESS HNO ID: [id number] thor: Darrell Stahl: (none)Author Type: PhysicianType: Progress NotesFiled: 06/02/2017 9:31 AMNote Text:PERTINENT CARDIAC HISTORYASHD - PCI LAD 2003HTNHLCarotid diseaseSyncopePAFADHERENCE TO GUIDELINESACE-I or ARB for HF with prior LVEF<40 (NQF 0081) - N/AASA or Plavix for ASHD (NQF 0067) - METBeta jazmin for ASHD with prior MS or prior LVEF<40 (NQF 0070) - N/ABeta [...] weeks.He will be getting labs from the [facility] in the near future and I'veasked for a copy.INR has been within range. He is due today.I will see him in 8 months or as needed. If there is increased chest painor recurrent syncope, he has been advised to contact me.Written and verbal health teaching given to patient, patient verbalizesunderstanding and agrees with treatment plan.This note was generated using [employer] voice recognition system, and theremay be some [...] is nosignificant change.Electronically Signed:Darrell Oliveira [facility] 2017 9:15 [facility]: Stas Mora MD [facility] OBSOLETEon 03-02-2017 OBSOLETE Refill (AGCARDWST) -------ROBY FLORES ([id number]) 1935 MDate Time Provider Wvilqlgscb86/11/17 DARRELL OLIVEIRA AGCARDWST During your visit today, [...] 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 Stas Mora MD Work Phone: [phone])[phone] [place] [address] 09-06-2024 14:15-0400 Body temperature 98 [degF] Dr. Stas Mora MD Work Phone: 1(076)668-389742 [place] [address] 09-06-2024 14:15-0400 Diastolic blood pressure 88 mm[Hg] Dr. Stas Mora MD Work Phone: 8(496)217-128443 [place] [address] 09-06-2024 14:15-0400 Heart rate 78 /min Dr. Stas Mora MD Work Phone: 4(520)012-599843 [place] [address] 09-06-2024 14:15-0400 Respiratory rate 18 /min Dr. Stas Mora MD Work Phone: 2(215)[phone] [place] [address] 09-06-2024 14:15-0400 SaO2% (BldA) [Mass fraction] 97 % Dr. Stas Mora MD Work Phone: 7(750)954-289943 [place] [address] 09-06-2024 14:15-0400 Systolic blood pressure 137 mm[Hg] Dr. Stas Mora MD Work Phone: 8(335)644-314243 [place] [address] 09-04-2024 12:05-0400 Inhaled oxygen flow rate 2 L/min Dr. Stas Mora MD Work Phone: 0(586)209-830542 [place] [address] 09-01-2024 11:52-0400 Body height 182.[address] Stas Mora MD Work Phone: 6(071)889-097342 [place] [address] 09-01-2024 11:52-0400 Body mass index (BMI) [Ratio] 21.6 kg/m2 Dr. Stas Mora MD Work Phone: 0(326)201-112542 [place] [address] 09-01-2024 11:52-0400 Body weight 72.[address] Stas Mora MD Work Phone: 9([phone])[phone] [place] [address] 09-01-2024 11:00-0400 Diastolic blood pressure 79 mm[Hg] Dr. Stas Mora MD Work Phone: 9(287)289-158342 [place] [address] 09-01-2024 11:00-0400 Heart rate 70 /min Dr. Stas Mora MD Work Phone: 7(517)697-002642 [place] [address] 09-01-2024 11:00-0400 Respiratory rate 18 /min Dr. Stas Mora MD Work Phone: 1(474)650-699142 [place] [address] 09-01-2024 11:00-0400 SaO2% (BldA) [Mass fraction] 98 % Dr. Stas Mora MD Work Phone: 6(170)[phone] [place] [address] 09-01-2024 11:00-0400 Systolic blood pressure 180 mm[Hg] Dr. Stas Mora MD Work Phone: 6(309)880-295142 [place] [address] 09-01-2024 09:52-0400 Body temperature 98.9 [degF] Dr. Stas Mora MD Work Phone: 3([phone])615-841542 [place] [address] 09-01-2024 07:31-0400 Body height 182.[address] Stas Mora MD Work Phone: 2([phone])255-188642 [place] [address] 09-01-2024 07:31-0400 Body mass index (BMI) [Ratio] 23.4 kg/m2 Dr. Stas Mora MD Work Phone: [phone] [place] [address] 09-01-2024 07:31-0400 Body weight 78.[address] Stas Mora MD Work Phone: [phone] [place] [address] 08-31-2024 11:05-0400 Body mass index (BMI) [Ratio] 22.35 kg/m2 Luciana Cisneros MD Work Phone: [facility] 08-31-2024 11:05-0400 Body weight 73.94 kg Luciana Cisneros MD Work Phone: [facility] 08-31-2024 11:05-0400 Diastolic blood pressure 74 mm[Hg] Luciana Cisneros MD Work Phone: [facility] 08-31-2024 11:05-0400 Heart rate 74 /min Luciana Cisneros MD Work Phone: [facility] 08-31-2024 11:05-0400 Respiratory rate 12 /min Luciana Cisneros MD Work Phone: [facility] 08-31-2024 11:05-0400 SaO2% (BldA) [Mass fraction] 98 % Luciana Cisneros MD Work Phone: [facility] 08-31-2024 11:05-0400 Systolic blood pressure 124 mm[Hg] Luciana Cisneros MD Work Phone: [facility] 07-28-2024 11:12-0400 Diastolic blood pressure 78 mm[Hg] Stas Mora MD Work Phone: [facility] 07-28-2024 11:12-0400 Systolic blood pressure 136 mm[Hg] Stas Mora MD Work Phone: [facility] 07-28-2024 11:10-0400 Body mass index (BMI) [Ratio] 22.4 kg/m2 Stas Mora MD Work Phone: [facility] 07-28-2024 11:10-0400 Body weight 74.1 kg Stas Mora MD Work Phone: [facility] 07-28-2024 11:10-0400 Heart rate 56 /min Stas Mora MD Work Phone: [facility] 07-28-2024 11:10-0400 Respiratory rate 16 /min Stas Mora MD Work Phone: [facility] 06-01-2024 14:52-0400 Body height 181.9 cm Luciana Cisneros MD Work Phone: [facility] 06-01-2024 14:52-0400 Body mass index (BMI) [Ratio] 22.33 kg/m2 Luciana Cisneros MD Work Phone: [facility] 06-01-2024 14:52-0400 Body weight 73.85 kg Luciana Cisneros MD Work Phone: [facility] 06-01-2024 14:52-0400 Diastolic blood pressure 60 mm[Hg] Luciana Cisneros MD Work Phone: [facility] 06-01-2024 14:52-0400 Heart rate 46 /min Luciana Cisneros MD Work Phone: [facility] 06-01-2024 14:52-0400 SaO2% (BldA) [Mass fraction] 98 % Luciana Cisneros MD Work Phone: [facility] 06-01-2024 14:52-0400 Systolic blood pressure 132 mm[Hg] Luciana Cisneros MD Work Phone: [facility] 05-26-2024 09:18-0500 Diastolic blood pressure 82 mm[Hg] Stas Mora MD Work Phone: [facility] 05-26-2024 09:18-0500 Systolic blood pressure 144 mm[Hg] Stas Mora MD Work Phone: [facility] 05-26-2024 09:06-0500 Body mass index (BMI) [Ratio] 22.19 kg/m2 Stas Mora MD Work Phone: [facility] 05-26-2024 09:06-0500 Body weight 73.5 kg Stas Mora MD Work Phone: [facility] 05-26-2024 09:06-0500 Heart rate 56 /min Stas Mora MD Work Phone: [facility] 05-26-2024 09:06-0500 Respiratory rate 18 /min Stas Mora MD Work Phone: [facility] 04-27-2024 09:34-0500 Body height 182 cm Luciana Cisneros MD Work Phone: [facility] 04-27-2024 09:34-0500 Body mass index (BMI) [Ratio] 22.51 kg/m2 Luciana Cisneros MD Work Phone: [facility] 04-27-2024 09:34-0500 Body weight 74.57 kg Luciana Cisneros MD Work Phone: [facility] 04-27-2024 09:34-0500 Diastolic blood pressure 62 mm[Hg] Luciana Cisneros MD Work Phone: [facility] 04-27-2024 09:34-0500 Heart rate 60 /min Luciana Cisneros MD Work Phone: [facility] 04-27-2024 09:34-0500 SaO2% (BldA) [Mass fraction] 98 % Luciana Cisneros MD Work Phone: [facility] 04-27-2024 09:34-0500 Systolic blood pressure 110 mm[Hg] Luciana Cisneros MD Work Phone: [facility] 11-26-2023 10:33-0400 Diastolic blood pressure 80 mm[Hg] Stas Mora MD Work Phone: [facility] 11-26-2023 10:33-0400 Systolic blood pressure 144 mm[Hg] Stas Mora MD Work Phone: [facility] 11-26-2023 10:22-0400 Body mass index (BMI) [Ratio] 21.95 kg/m2 Stas Mora MD Work Phone: [facility] 11-26-2023 10:22-0400 Body weight 71.4 kg Stas Mora MD Work Phone: [facility] 11-26-2023 10:22-0400 Heart rate 60 /min Stas Mora MD Work Phone: [facility] 11-26-2023 10:22-0400 Respiratory rate 18 /min Stas Mora MD Work Phone: [facility] 09-15-2023 08:38-0400 Body mass index (BMI) [Ratio] 24.52 kg/m2 Stas Mora MD Work Phone: [facility] 09-15-2023 08:38-0400 Body weight 79.74 kg Stas Mora MD Work Phone: [facility] 09-15-2023 08:38-0400 Diastolic blood pressure 84 mm[Hg] Stas Mora MD Work Phone: [facility] 09-15-2023 08:38-0400 Heart rate 76 /min Stas Mora MD Work Phone: [facility] 09-15-2023 08:38-0400 Respiratory rate 18 /min Stas Mora MD Work Phone: [facility] 09-15-2023 08:38-0400 Systolic blood pressure 138 mm[Hg] Stas Mora MD Work Phone: [facility] 08-14-2023 09:57-0400 Body mass index (BMI) [Ratio] 22.59 kg/m2 Stas Mora MD Work Phone: [facility] 08-14-2023 09:57-0400 Body weight 73.48 kg Stas Mora MD Work Phone: [facility] 08-14-2023 09:57-0400 Diastolic blood pressure 80 mm[Hg] Stas Mora MD Work Phone: [facility] 08-14-2023 09:57-0400 Heart rate 64 /min Stas Mora MD Work Phone: [facility] 08-14-2023 09:57-0400 Respiratory rate 14 /min Stas Mora MD Work Phone: [facility] 08-14-2023 09:57-0400 Systolic blood pressure 140 mm[Hg] Stas Mora MD Work Phone: [facility] 06-01-2023 15:08-0400 Body weight 75.75 kg Stas Mora MD Work Phone: [facility] 06-01-2023 15:08-0400 Diastolic blood pressure 90 mm[Hg] Stas Mora MD Work Phone: [facility] 06-01-2023 15:08-0400 Heart rate 82 /min Stas Mora MD Work Phone: [facility] 06-01-2023 15:08-0400 Respiratory rate 16 /min Stas Mora MD Work Phone: [facility] 06-01-2023 15:08-0400 SaO2% (BldA) [Mass fraction] 100 % Stas Mora MD Work Phone: [facility] 06-01-2023 15:08-0400 Systolic blood pressure 140 mm[Hg] Stas Mora MD Work Phone: [facility] 02-16-2023 13:57-0500 Diastolic blood pressure 62 mm[Hg] Stas Mora MD Work Phone: [facility] 02-16-2023 13:57-0500 Heart rate 62 /min Stas Mora MD Work Phone: [facility] 02-16-2023 13:57-0500 Respiratory rate 16 /min Stas Mora MD Work Phone: [facility] 02-16-2023 13:57-0500 Systolic blood pressure 110 mm[Hg] Stas Mora MD Work Phone: [facility] 02-10-2023 16:59-0500 Diastolic blood pressure 68 mm[Hg] [facility] 02-10-2023 16:59-0500 Heart rate 79 /min [facility] 02-10-2023 16:59-0500 Respiratory rate 12 /min [facility] 02-10-2023 16:59-0500 SaO2% (BldA) [Mass fraction] 98 % [facility] 02-10-2023 16:59-0500 Systolic blood pressure 153 mm[Hg] [facility] 02-10-2023 14:37-0500 Body mass index (BMI) [Ratio] 22.1 kg/m2 [facility] 02-10-2023 14:37-0500 Body weight 74.3 kg [facility] 02-10-2023 14:32-0500 Body height 182.88 cm [facility] 02-10-2023 14:32-0500 Body temperature 98 [degF] [facility] 11-17-2022 17:22-0400 Diastolic Blood Pressure Non-Invasive 68 1 [employer] [employer] DO [facility] 11-17-2022 17:22-0400 Heart rate 76 /min [facility] 11-17-2022 17:22-0400 Respiratory rate 18 /min ST[facility] [employer] DO [facility] 11-17-2022 17:22-0400 Systolic Blood Pressure Non-Invasive 126 1 [employer] [employer] DO [facility] 11-17-2022 15:23-0400 Body height 185.4 cm [facility] [employer] [facility] [employer] [facility] 11-17-2022 15:23-0400 Body temperature 97.88 [degF] [facility] [employer] DO [facility] 11-17-2022 15:23-0400 Body weight 79.6 kg [employer] [facility] 11-17-2022 15:23-0400 Diastolic Blood Pressure Non-Invasive 70 1 [facility] [employer] [facility] 11-17-2022 15:23-0400 Heart rate 89 /min [facility] [employer] [facility] 11-17-2022 15:23-0400 Respiratory rate 18 /min [facility] [employer] [facility] 11-17-2022 15:23-0400 Systolic Blood Pressure Non-Invasive 134 1 STERLING LYNCH DO [facility] 08-26-2022 13:12-0400 Body height 180.3 cm Stas Mora MD Work Phone: [facility] 08-26-2022 13:12-0400 Body weight 78.74 kg Stas Mora MD Work Phone: [facility] 08-26-2022 13:12-0400 Diastolic blood pressure 74 mm[Hg] Stas Mora MD Work Phone: [facility] 08-26-2022 13:12-0400 Heart rate 66 /min Stas Mora MD Work Phone: [facility] 08-26-2022 13:12-0400 Respiratory rate 16 /min Stas Mora MD Work Phone: [facility] 08-26-2022 13:12-0400 Systolic blood pressure 122 mm[Hg] Stas Mora MD Work Phone: [facility] 12-26-2021 11:22-0400 Body weight 78.56 kg Stas Mora MD Work Phone: [facility] 12-26-2021 11:22-0400 Diastolic blood pressure 80 mm[Hg] Stas Mora MD Work Phone: [facility] 12-26-2021 11:22-0400 Heart rate 58 /min Stas Mora MD Work Phone: [facility] 12-26-2021 11:22-0400 Respiratory rate 16 /min Stas Mora MD Work Phone: [facility] 12-26-2021 11:22-0400 Systolic blood pressure 142 mm[Hg] Stas Mora MD Work Phone: [facility] 12-22-2021 11:13-0400 Body temperature 97.6 [degF] Dr. Stas Mora Work Phone: [facility] Work Phone: 12-22-2021 11:13-0400 Diastolic blood pressure 58 mm[Hg] Dr. Stas Mora Work Phone: [facility] Work Phone: 12-22-2021 11:13-0400 Heart rate 63 /min Dr. Stas Mora Work Phone: [facility] Work Phone: 12-22-2021 11:13-0400 Respiratory rate 16 /min Dr. Stas Mora Work Phone: [facility] Work Phone: 12-22-2021 11:13-0400 SaO2% (BldA) [Mass fraction] 96 % Dr. Stas Mora Work Phone: [facility] Work Phone: 12-22-2021 11:13-0400 Systolic blood pressure 142 mm[Hg] Dr. Stas Mora Work Phone: [facility] Work Phone: 12-21-2021 20:06-0400 Body height 182.[address] Stas Mora Work Phone: [facility] Work Phone: 12-21-2021 20:06-0400 Body mass index (BMI) [Ratio] 22.6 kg/m2 Dr. Stas Mora Work Phone: [facility] Work Phone: 12-21-2021 20:06-0400 Body weight 75.[address] Stas Mora Work Phone: [facility] Work Phone: 12-21-2021 19:15-0400 Diastolic blood pressure 81 mm[Hg] [facility] Work Phone: 12-21-2021 19:15-0400 Heart rate 70 /min [facility] Work Phone: 12-21-2021 19:15-0400 Respiratory rate 18 /min [facility] Work Phone: 12-21-2021 19:15-0400 SaO2% (BldA) [Mass fraction] 96 % [facility] Work Phone: 12-21-2021 19:15-0400 Systolic blood pressure 171 mm[Hg] [facility] Work Phone: 12-21-2021 19:02-0400 Body temperature 97.6 [degF] [facility] Work Phone: 12-21-2021 18:17-0400 Body height 182.88 cm [facility] Work Phone: 12-21-2021 18:17-0400 Body mass index (BMI) [Ratio] 24.2 kg/m2 [facility] Work Phone: 12-21-2021 18:17-0400 Body weight 80.9 kg [facility] Work Phone: 09-05-2021 11:21-0400 Body height 182.9 cm Stas Mora MD Work Phone: [facility] 09-05-2021 11:21-0400 Body weight 80.2 kg Stas Mora MD Work Phone: [facility] 09-05-2021 11:21-0400 Diastolic blood pressure 70 mm[Hg] Stas Mora MD Work Phone: [facility] 09-05-2021 11:21-0400 Heart rate 62 /min Stas Mora MD Work Phone: [facility] 09-05-2021 11:21-0400 Respiratory rate 16 /min Stas Mora MD Work Phone: [facility] 09-05-2021 11:21-0400 Systolic blood pressure 136 mm[Hg] Stas Mora MD Work Phone: [facility] 07-08-2021 10:41-0400 Body weight 83.55 kg Stas Mora MD Work Phone: [facility] 07-08-2021 10:41-0400 Diastolic blood pressure 78 mm[Hg] Stas Mora MD Work Phone: [facility] 07-08-2021 10:41-0400 Heart rate 60 /min Stas Mora MD Work Phone: [facility] 07-08-2021 10:41-0400 Respiratory rate 16 /min Stas Mora MD Work Phone: [facility] 07-08-2021 10:41-0400 Systolic blood pressure 120 mm[Hg] Stas Mora MD Work Phone: [facility] Encounters Encounter Date Encounter Type Care Provider Facility Start: 01-25-2025 ambulatory Shayy GAMA Fa cility:[facility] Start: 01-23-2025 ambulatory Stas Mora Facilit y:[facility] Start: 01-10-2025 ambulatory Stas Mora Facilit y:[facility] Start: 12-28-2024 End: 12-28-2024 ambulatory Halina Carmona [employer] Facility:[facility] Start: 12-22-2024 End: 12-22-2024 ambulatory Cj Costa PA Facility:[facility] Start: 12-21-2024 Registered Referred Shayy Berrios Start: 12-21-2024 End: 12-21-2024 ambulatory Stas Mora Facility:[facility] Start: 12-14-2024 Registered Referred Shayy Berrios Start: 12-14-2024 End: 12-14-2024 ambulatory Stas Mora Facility:[facility] Start: 11-30-2024 Registered Referred Shayy Berrios Start: 11-29-2024 End: 11-30-[address] Stas Mora MD Work Phone: [facility] Start: 11-29-2024 End: 11-29-[address] Shayy Curtis MD -[facility] Work Phone: Start: 11-25-2024 Registered Referred Shayy MaloneyElmer [facility] Start: 11-24-2024 End: 11-25-[address] Stas Mora MD Work Phone: [facility] Start: 11-24-2024 End: 11-24-2024 Patient encounter procedure Halina HO -[facility] Work Phone: Start: 11-23-2024 ambulatory Efewongbe Oleghe OLS Fa cility:[facility] Start: 11-23-2024 Registered Referred Shayy Maloney[facility]mer [facility] Start: 11-02-2024 ambulatory Efewongirlanda Salazarghe OLS Fa cility:[facility] Start: 11-02-2024 Registered Referred Shayy [facility] Start: 10-31-2024 ambulatory Efewongbe Martinghe OLS Fa cility:[facility] Start: 10-31-2024 Registered Referred Shayy MaloneyElmer [facility] Start: 10-25-2024 End: 10-25-[address] Stas Mora MD Work Phone: [facility] Start: 10-25-2024 End: 10-25-[address] [facility] Start: 10-20-2024 End: 10-20-[address] Stas Mora MD Work Phone: [facility] Start: 10-20-2024 End: 10-20-2024 [facility] Start: 10-06-2024 ambulatory Efewongbe Gabee OLS Fa cility:[facility] Start: 10-06-2024 Registered Referred Shayy [facility] Start: 10-05-2024 ambulatory Shayy GAMA Fa cility:[facility] Start: 10-05-2024 Registered Referred Shayy [facility] Start: 09-30-2024 End: 09-30-[address] Stas Mora MD Work Phone: -[facility] Start: 09-30-2024 End: 09-30-2024 Patient encounter procedure Halina Carmona [employer] -[facility] Work Phone: Start: 09-29-2024 ambulatory Efbaldomero GAMA Fa cility:[facility] Start: 09-29-2024 Registered Referred Shayy Cardozo Start: 09-28-2024 End: 09-28-[address] Stas Mora MD Work Phone: [facility] Start: 09-28-2024 End: 09-28-2024 Departed Referred Shayy Cardozo Start: 09-28-2024 Registered Referred Shayy Cardozo Start: 09-28-2024 End: 09-28-2024 ambulatory Shayy GAMA Facility:[facility] Start: 09-26-2024 End: 09-26-[address] Stas Mora MD Work Phone: [facility] Start: 09-26-2024 End: 09-26-2024 Departed Referred Shayy Cardozo Start: 09-26-2024 Registered Referred Shayy Cardozo Start: 09-26-2024 End: 09-26-2024 ambulatory Efbaldomero GAMA Facility:[facility] Start: 09-23-2024 ambulatory Efbaldomero GAMA Fa cility:[facility] Start: 09-23-2024 Registered Referred Shayy Cardozo Start: 09-21-2024 End: 09-22-2024 Telephone encounter Stas Mora MD Work Phone: [facility] Start: 09-21-2024 ambulatory Efbaldomero Bernale OLS Fa cility:[facility] Start: 09-21-2024 Registered Referred Shayy Cardozo Start: 09-20-2024 End: 09-20-[address] Stas Mora MD Work Phone: [facility] Start: 09-20-2024 End: 09-20-[address] Shayy Curtis MD -[facility] Work Phone: Start: 09-19-2024 ambulatory Efewongbe Gabee OLS Fa cility:[facility] Start: 09-19-2024 Registered Referred Shayy Cardozo Start: 09-15-2024 ambulatory Efewongbe Martintomye OLS Fa cility:[facility] Start: 09-15-2024 Registered Referred Shayy Cardozo Start: 09-14-2024 ambulatory Efewongbe Gabee OLS Fa cility:[facility] Start: 09-14-2024 Registered Referred Shayy Cardozo Start: 09-12-2024 ambulatory Efewongirlanda Bernale OLS Fa cility:[facility] Start: 09-12-2024 Registered Referred Shayy Cardozo Start: 09-08-2024 End: 09-08-2024 Patient encounter procedure Halina HO -[facility] Work Phone: Start: 09-08-2024 End: 09-08-[address] Stas Mora MD Work Phone: [facility] Start: 09-08-2024 Registered Referred Shayy Cardozo Start: 09-07-2024 End: 09-07-2024 [facility] Start: 09-07-2024 End: 09-07-[address] Stas Mora MD Work Phone: -[facility] Start: 09-07-2024 Registered Referred Shayy Curtis MD -[facility] Start: 09-06-2024 Non-patient / Non-visit Dr. Navid Dominguez MD -[facility] Work Phone: Start: 09-05-2024 Non-patient / Non-visit Dr. Navid Dominguez MD [facility] Work Phone: Start: 09-04-2024 Non-patient / Non-visit Dr. Jia Wells MD [facility] Work Phone: Start: 09-03-2024 Non-patient / [facility] Work Phone: Start: 09-02-2024 Non-patient / Non-visit Dr. Jia Wells MD [facility] Work Phone: Start: 09-02-2024 ambulatory Kathy Jimenez Facility :[facility] Start: 09-02-2024 End: 09-06-2024 Evaluation and management of inpatient Dr. Navid Dominguez MD -[facility] Work Phone: Start: 09-01-2024 End: 09-01-2024 Telephone encounter [facility] Work Phone: [facility] Comment on above: Medication Problem ( Cost) Start: 09-01-2024 ambulatory Kathy Jimenez Facility :[facility] Start: 09-01-2024 Evaluation and management of inpatient Dr. Kathy Wells MD -[facility] Work Phone: Start: 09-01-2024 Non-patient / Non-visit Dr. [facility] Work Phone: Start: 09-01-[address] Stas Mora MD Work Phone: [facility] Work Phone: Start: 08-31-2024 End: 08-31-2024 Telephone encounter Coretta Jalloh [facility] Ambulatory Telemanagement Comment on above: Anticoagulation Tele phone Fu (Home INR result ) Start: 08-31-2024 End: 08-31-2024 ambulatory STAS Trejo [facility] Facility:[facility] Start: 08-31-2024 End: 08-31-2024 Office outpatient visit 25 minutes Luciana Cisneros MD Work Phone: [facility]iatric[facility] Comment on above: Moderate dementia wi thout behavioral disturbance, psychotic disturbance, mood disturbance, or anxiety, unspecified dementia type (HCC) (Primary Dx); Hallucinations; Screening for depression; Encounter for screening examination for other mental health and behavioral disorders Start: 08-31-2024 End: 08-31-2024 ambulatory LUCIANA CISNEROS Facility:[facility] Start: 08-03-2024 End: 08-03-2024 Telephone encounter Coretta Jalloh [facility] Ambulatory Tele[facility] Comment on above: Anticoagulation Tele phone Fu (Lab INR result) Start: 08-03-2024 End: 08-03-2024 ambulatory STAS Trejo [facility] Facility:[facility] Start: 07-28-2024 End: 07-28-2024 Office outpatient visit 15 minutes Stas Mora MD Work Phone: [facility] Comment on above: Bursitis of right el bow, unspecified bursa (Primary Dx) Start: 07-28-2024 End: 07-28-2024 [facility] Start: 07-06-2024 End: 07-06-2024 Telephone encounter Coretta Jalloh [facility] Ambulatory Telemanagement Comment on above: Anticoagulation Tele phone Fu (Lab INR result ) Start: 07-06-2024 End: 07-06-2024 ambulatory STAS Maya [facility] Facility:[facility] Start: 06-29-2024 End: 06-29-2024 Telephone encounter Coretta Jalloh [facility] Ambulatory Telemanagement Comment on above: Anticoagulation Tele phone Fu (Lab INR result ) Start: 06-29-2024 End: 06-29-2024 ambulatory STAS MORA Facility:[facility] Start: 06-01-2024 End: 06-01-2024 Office consultation new/estab patient 80 min Luciana Cisneros MD Work Phone: [facility] Comment on above: Mixed dementia (HCC) (Primary Dx); Vascular parkinsonism (HCC) Start: 06-01-2024 End: 06-01-2024 ambulatory LUCIANA CISNEROS Facility:[facility] Start: 06-01-2024 End: 08-01-2024 Follow-up encounter Luciana Cisneros MD Work Phone: [facility] Start: 05-26-2024 End: 05-26-2024 Telephone encounter Luciana Cisneros MD Work Phone: [facility] Comment on above: Appointment (Resched ule for geriatric f/u) Start: 05-26-2024 End: 05-26-2024 [facility] Start: 05-26-2024 End: 05-26-2024 Patient encounter procedure Stas Mora MD Work Phone: [facility] [place] Comment on above: Essential hypertensi on, benign (Primary Dx); Hyperlipidemia, unspecified hyperlipidemia type; Atherosclerosis 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, unspecified vessel or lesion type, unspecified whether picayune or transplanted heart; Paroxysmal atrial fibrillation (HCC); Edema of both lower legs; History of stroke with residual effects; Dementia, unspecified dementia severity, unspecified dementia type, unspecified whether behavioral, psychotic, or mood disturbance or anxiety (HCC) Start: 05-25-2024 End: 05-25-2024 Telephone encounter Paige Hickman [facility] Ambulatory Telemanagement Comment on above: Anticoagulation Tele phone Fu (Lab INR Result ) Start: 05-25-2024 End: 05-25-2024 ambulatory STAS MORA Facility:[facility] Start: 05-23-2024 ambulatory LUCIANA CISNEROS Facility :[id number] Start: 05-23-2024 End: 05-23-2024 Subsequent hospital visit by physician [facility] Work Phone: [facility] Comment on above: Cognitive impairment , mild, 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] Start: 04-28-2024 End: 04-29-2024 Telephone encounter Stas Mora MD Work Phone: [facility] [place] Comment on above: Results Start: 04-27-2024 End: 04-27-2024 Telephone encounter Coretta Jalloh [facility] Ambulatory Telemanagement Comment on above: Anticoagulation Tele phone Fu (Lab INR result ) Start: 04-27-2024 End: 04-27-2024 ambulatory [facility] Facility:[facility] Start: 04-27-2024 End: 04-27-2024 Assmt & care planning pt w/cognitive impairment Luciana Cisneros MD Work Phone: Geriatrics Comment on above: Dementia, unspecifie d dementia severity, unspecified dementia type, unspecified whether behavioral, psychotic, or mood disturbance or anxiety (HCC) (Primary Dx); Cognitive impairment; Cognitive impairment, mild, so stated; Shuffling gait; Ambulatory dysfunction; Balance disorder Start: 04-27-2024 End: 04-27-2024 [facility] Facility:[facility] Start: 04-25-2024 End: 04-25-2024 Telephone encounter Stas Mora MD Work Phone: [facility] [place] Comment on above: memory issues Start: 04-13-2024 End: 04-13-2024 Telephone encounter [facility] [place] [facility] Tele[facility] Comment on above: Anticoagulation Tele phone Fu (Home INR result ) Start: 04-13-2024 End: 04-13-2024 ambulatory STAS MORA Facility:[facility] Start: 03-30-2024 End: 03-30-2024 Telephone encounter Coretta Jalloh [facility] Telemanagement Comment on above: Anticoagulation Tele phone Fu (Lab INR result ) Start: 03-30-2024 End: 03-30-2024 ambulatory STAS MORA Facility:[facility] Start: 03-17-2024 End: 03-17-2024 Telephone encounter Josy Gandhi [facility] Comment on above: Anticoagulation Tele phone Fu (Lab INR result ) Start: 03-17-2024 End: 03-17-2024 ambulatory STAS MORA Facility:[facility] Start: 03-03-2024 End: 03-03-2024 Telephone encounter Elise Paredes [facility] Telemanagement Comment on above: Anticoagulation Tele phone Fu (Lab INR result) Start: 03-03-2024 End: 03-03-2024 ambulatory [facility] Facility:[facility] Start: 02-10-2024 End: 02-10-2024 [facility] Telemanagement Comment on above: Anticoagulation Tele phone Fu (Lab INR result ) Start: 02-10-2024 End: 02-10-2024 ambulatory [facility] Facility:[facility] Start: 01-20-2024 End: 01-20-2024 Telephone encounter [facility] Ambulatory Telemanagement Comment on above: Anticoagulation Tele phone Fu (Lab INR results ) Start: 01-04-2024 End: 01-04-2024 Telephone encounter Stas Mora MD Work Phone: [facility] Comment on above: Medication Request Start: 12-24-2023 End: 12-24-2023 Telephone encounter Elise Paredes [facility] Telemanagement Comment on above: Anticoagulation Tele phone Fu (Lab INR) Start: 12-10-2023 End: 12-10-2023 Telephone encounter Elise Paredes [facility]ulatory Telemanagement Comment on above: Anticoagulation Tele phone Fu (Lab INR) Start: 11-26-2023 End: 11-26-2023 Telephone encounter Elise Paredes [facility]ulatory Telemanagement Comment on above: Anticoagulation Tele phone Fu (Lab INR) Start: 11-26-2023 End: 11-26-2023 Patient encounter procedure Stas Mora MD Work Phone: [facility] [place] Comment on above: Essential hypertensi on, benign (Primary Dx); Hyperlipidemia, unspecified hyperlipidemia type; Edema of both lower legs; Paroxysmal atrial fibrillation (HCC); History of stroke with residual effects; 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, psychotic disturbance, mood disturbance, or anxiety (HCC); Urinary frequency; Abnormal CBC Start: 11-18-2023 End: 11-18-2023 Telephone encounter Coretta Jalloh [facility] Telemanagement Comment on above: Anticoagulation Tele phone Fu (Home INR) Start: 11-16-2023 End: 11-16-2023 Refill Stas Mora MD Work Phone: [facility] [place] Comment on above: Refill Request Start: 10-14-2023 Telephone encounter Coretta [facility] Tele[facility] Comment on above: Anticoagulation Tele phone Fu (Home INR results ) Start: 09-16-2023 Telephone encounter Colleen Sommer [facility] Telemanagement Comment on above: Anticoagulation Tele phone Fu Start: 09-15-2023 End: 09-15-2023 Patient encounter procedure Stas Mora MD Work Phone: [facility] Comment on above: Edema of both lower legs (Primary Dx) Start: 09-14-2023 End: 09-14-2023 ambulatory Nurse Intm/Famp Triage [facility] Work Phone: Nurse Phone Triage [...] encounter procedure Stas Mora MD Work Phone: [facility] Comment on above: Moderate vascular [...] results ) Start: 07-16-2023 Refill Elvis RASHID RN.LEAD SYSTEMS DEVELOPER Work Phone: [facility] [place] Comment on above: Refill Request [...] Jerzy Easton MD Work Phone: [facility] [place] Comment on above: Anticoagulation Start: 06-11-2023 Telephone encounter Stas miranda MD Work Phone: [facility] [place] Comment on above: Anticoagulation Start: 06-08-2023 Telephone encounter Jenna Armenta nmof DECK ENGINEER.LEAD SYSTEMS DEVELOPER Work Phone: [facility] [place] Comment on above: Erroneous encounter- disregard Anticoagulation Start: 06-05-2023 Telephone encounter Jenna Armenta nmof DECK ENGINEER.LEAD SYSTEMS DEVELOPER Work Phone: [facility] [place] Comment on above: Results (Labs, Criti cleopatra ) Start: 06-04-2023 ambulatory Hortencia Winston RN NURSE O N CALL Comment on above: Results, Lab High Protime and INR Start: 06-04-2023 E-mail encounter fro m caregiver Jasmin Bell MD Work Phone: [facility] [place] Start: 06-04-2023 Telephone encounter Jenna Armenta nhof DECK ENGINEER.LEAD SYSTEMS DEVELOPER Work Phone: [facility] [place] Comment on above: Results; Orders (Lab s ) Start: 06-03-2023 Telephone encounter Coretta [facility] Telemanagement Comment on above: Anticoagulation Tele phone Fu (Lab INR results ) Start: 06-01-2023 End: 06-01-2023 Patient encounter procedure Stas Mora MD Work Phone: [facility] [place] Comment on above: Essential hypertensi on, benign (Primary Dx); Paroxysmal atrial fibrillation (HCC); Atherosclerosis 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, unspecified vessel or lesion type, unspecified whether picayune or transplanted heart; Hyperlipidemia, unspecified hyperlipidemia type; [...] results) Start: 05-13-2023 Telephone encounter Senia Phillips [facility] Ambulatory Telemanagement Comment on above: Anticoagulation Tele phone Fu (INR Lab Result) Start: 05-06-2023 Telephone encounter Coretta [facility] Tele[facility] Comment on above: Anticoagulation Tele phone Fu (Lab INR results ) Start: 04-29-2023 Telephone encounter [facility]ta [facility] Telemanagement Comment on above: Anticoagulation Tele phone Fu (Home INR results ) Start: 02-20-2023 Telephone encounter Elise Paredes [facility] Comment on above: Anticoagulation Tele phone Fu (Lab INR) Start: 02-17-2023 Telephone encounter Stas miranda MD Work Phone: [facility] [place] Comment on above: Results Start: 02-17-2023 End: 02-17-2023 Subsequent hospital visit by physician Mri Radio [facility] (I-Stat/1.5t) Work Phone: Radiology Comment on above: Cerebral infarction, unspecified mechanism (HCC) [I63.9] Start: 02-16-2023 End: 02-16-2023 Patient encounter procedure Stas Mora MD Work Phone: [facility] Comment on above: Cerebral infarction, unspecified mechanism (HCC) (Primary Dx); Generalized weakness; Speech disturbance, unspecified type; Hyperlipidemia, unspecified hyperlipidemia type; Essential hypertension, benign; Paroxysmal atrial fibrillation (HCC) Start: 02-13-2023 Telephone encounter Elise Paerdes [facility] Telemanagement Comment on above: Anticoagulation Tele phone Fu (Lab INR) Start: 02-10-2023 End: 02-10-2023 Emergency department patient visit [facility] Work Phone: Start: 02-06-2023 Telephone encounter Senia Phillips [facility] Ambulatory Telemanagement Comment on above: Anticoagulation Tele phone Fu (INR Lab Result) Start: 01-19-2023 Telephone encounter [facility] Tele[facility] Comment on above: Anticoagulation Tele phone Fu Start: 01-16-2023 Orders Only Stas newman MD Work Phone: [facility] Comment on above: terminal carman current us e of anticoagulant (Primary Dx); [...] 11-17-2022 Emergency department patient visit [facility] Start: 11-07-2022 Telephone encounter Senia Cross [...] result Start: 09-26-2022 Telephone encounter Jeimy Duong [facility] Comment on above: Anticoagulation Tele phone Fu (Lab INR result) Start: 09-12-2022 Telephone encounter Jeimy Duong [facility] Comment on above: Anticoagulation Tele phone Fu (Lab INR result) Start: 08-26-2022 End: 08-26-2022 Patient encounter procedure Stas Mora MD Work Phone: [facility] Comment on above: Encounter for [...] Result) Start: 07-04-2022 Telephone encounter Lety Gandara [facility] Comment on above: Anticoagulation Tele phone Fu (Lab INR result ) Start: 06-23-2022 Refill Elvis RASHID RN.[facility] Work Phone: [facility] Comment on above: Refill Request Start: 06-20-2022 Telephone encounter Senia Cross [facility] Ambulatory Telemanagement Comment on above: Anticoagulation Tele phone Fu (INR Lab Result) Start: 06-06-2022 Telephone encounter Senia Cross [facility] Ambulatory Telemanagement Comment on above: Anticoagulation Tele phone Fu (INR Lab Result) Start: 05-30-2022 Telephone encounter Stas miranda MD Work Phone: [facility] [place] Comment on above: Opened In Error Start: 05-22-2022 Telephone encounter Jenna Armenta nhof DECK ENGINEERSamuelLEAD SYSTEMS DEVELOPER Work Phone: [facility] [place] Comment on above: Results (X-ray hip) Start: 05-21-2022 End: 05-21-2022 Subsequent hospital visit by physician Xr [facility] [place] Work Phone: Radiology Comment on above: Left hip pain [M25.5 52] Start: 05-21-2022 ambulatory Fani Grace RN NURSE O N CALL Comment on above: Fall Fall; Hip Pain Start: 05-19-2022 Telephone encounter Stas miranda MD Work Phone: [facility] [place] Comment on above: Anticoagulation Start: 05-16-2022 [...] Result) Start: 04-04-2022 Telephone encounter Elise Paredes [facility] Comment on above: Anticoagulation Tele phone Fu (Lab INR) Start: 03-31-2022 Telephone encounter Stas miranda MD Work Phone: [facility] [place] Comment on above: Release Of Medical R ecords (ND PCP) Start: 03-21-2022 Telephone encounter Carmelina Cruz [facility] Comment on above: Anticoagulation Tele phone Fu Start: 02-21-2022 Telephone encounter Kristian Ferguson MD Work Phone: [facility] [place] Comment on above: Anticoagulation Start: 02-10-2022 Telephone encounter Stas miranda MD Work Phone: [facility] [place] Comment on above: Opened In Error Start: 01-27-2022 Telephone encounter [facility] Tele[facility] Comment on above: Anticoagulation Tele phone Fu (Lab INR Result) Start: 01-20-2022 Telephone encounter [facility] Telemanagement Comment on above: Anticoagulation Tele phone Fu (Lab INR Result) Start: 01-17-2022 Telephone encounter Stas miranda MD Work Phone: [facility] Comment on above: Anticoagulation; Cri tical Results (INR) Start: 01-13-2022 Refill Stas newman MD Work Phone: [facility] Comment on above: Refill Request; Refi ll Request Start: 01-03-2022 Telephone encounter Senia Alan [facility] Comment on above: Anticoagulation Tele phone Fu (INR Home Test Result) Start: 01-02-2022 Telephone encounter Stas miranda MD Work Phone: [facility] Comment on above: Results Start: 12-26-2021 End: 12-26-2021 Patient encounter procedure Stas Mora MD Work Phone: [facility] Comment on above: Hospital discharge f ollow-up (Primary Dx); Encounter for immunization; TIA (transient ischemic attack); Thyroid nodule; Essential hypertension, benign; Paroxysmal atrial fibrillation (HCC); Atherosclerosis 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, unspecified vessel or lesion type, unspecified whether picayune or transplanted heart Start: 12-22-2021 Non-patient / Non-visit Dr. Maria E Mora Work Phone: [facility] Start: 12-21-2021 Non-patient / Non-visit Dr. Maria E Mora Work Phone: [facility] Start: 12-21-2021 End: 12-22-2021 Evaluation and management of inpatient [facility] Start: 12-21-2021 End: 12-22-[address] Stas Mora Work Phone: [facility] Work Phone: Start: 12-20-2021 Telephone encounter Stas miranda MD Work Phone: [facility] [place] Comment on above: Opened In Error Anticoagulation Tele phone Fu (INR Lab Result) Start: 12-06-2021 Telephone encounter Senia Cross [facility] Ambulatory Telemanagement Comment on above: Anticoagulation Tele phone Fu (INR Lab Result) Start: 11-22-2021 Telephone encounter Janice Sal [facility]ulatory Telemanagement Comment on above: Anticoagulation Tele phone Fu (INR) Start: 11-08-2021 Telephone encounter Stas miranda MD Work Phone: [facility] [place] Comment on above: Opened In Error Anticoagulation Tele phone Fu (INR Lab Result) Start: 10-25-2021 Telephone encounter Janice Sal [facility]ulatory Telemanagement Comment on above: Anticoagulation Tele phone Fu (lab INR ) Start: 09-27-2021 Telephone encounter Yomi Wills [facility] Ambulatory Telemanagement Comment on above: Anticoagulation Tele phone Fu (Lab INR Result) Start: 09-13-2021 Orders Only Stas newman MD Work Phone: [facility] [place] Comment on above: [facility] current us e of anticoagulant (Primary Dx); Encounter for monitoring Coumadin therapy Anticoagulation Tele phone Fu (INR Lab Result) Start: 09-05-2021 End: 09-05-2021 Patient encounter procedure Stas Mora MD Work Phone: [facility] [place] Comment on above: Encounter for Medica re annual wellness exam (Primary Dx); Paroxysmal atrial fibrillation (HCC); Essential hypertension, benign Start: 08-30-2021 Telephone encounter Jenna Armenta nhof DECK ENGINEER.LEAD SYSTEMS DEVELOPER Work Phone: [facility] [place] Comment on above: Orders (INR ) Anticoagulation Tele phone Fu (INR Lab Result) Start: 08-16-2021 Orders Only Stas newman MD Work Phone: [facility] [place] Comment on above: Anticoagulation Start: 08-02-2021 Telephone encounter Senia Alan [facility] Ambulatory Telemanagement Comment on above: Anticoagulation Tele phone Fu (INR Lab Result) Start: 07-16-2021 Telephone encounter [facility] Comment on above: Results Start: 07-13-2021 Refill Elvis RASHID RN.LEAD SYSTEMS DEVELOPER Work Phone: [facility] Comment on above: Refill Request Start: 07-08-2021 End: 07-08-2021 Patient encounter procedure Stas Mora MD Work Phone: [facility] Comment on above: Essential hypertensi on, benign (Primary Dx); Atherosclerosis 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, unspecified vessel or lesion type, unspecified whether picayune or transplanted heart; Paroxysmal atrial fibrillation (HCC); Primary osteoarthritis of both knees Start: 07-03-2021 Telephone encounter Stas miranda MD Work Phone: [facility] Comment on above: Anticoagulation Tele phone Fu (Lab INR result) Start: 06-12-2021 Telephone encounter Stas miranda MD Work Phone: [facility] Comment on above: Anticoagulation (Lab INR result) Start: 03-12-2020 End: 03-12-2020 Subsequent hospital visit by physician Xr [facility] [place] Work Phone: Radiology Comment on above: Acute right-sided lo w back pain, unspecified whether sciatica present [M54.5] Start: 02-02-2018 Ambulatory DARRELL OLIVEIRA Facility :[facility] Start: 06-02-2017 End: 06-02-2017 [facility] DARRELL Radha [facility] Procedures Date Procedure Procedure Detail Performing [...] Adult depression scr eening assessment Coretta Jalloh [facility] Start: 02-17-2023 Mri brain brain stem w/o contrast material Stas Mora MD Work Phone: Start: 02-10-2023 Plain chest X-ray Start: 02-10-2023 SARS-CoV-2 & FLU Ant igen (Rapid) Start: 05-21-2022 Radex hip unilateral with pelvis 2-3 views Jenna Fitzpatrick DECK ENGINEER.LEAD SYSTEMS DEVELOPER Work Phone: Start: 05-19-2022 PROTHROMBIN TIME/PT [facility] [...] Detail Author Start: 02-27-2031 Urine microalbumin profile [facility] Start: 05-26-2027 Diabetes Screening Diabetes Screenak g [facility] Start: 06-02-2026 Diabetes Screening Diabetes Screenak g [facility] Start: 08-15-2025 DIABETES SCREEN DIABETES SCREEN [facility] Start: 08-15-2025 Diabetes Screening Diabetes Screenak g [facility] Start: 05-25-2025 Hepatitis B surface antibody level LDL Cholesterol [facility] Start: 03-30-2025 End: 03-30-2025 Patient encounter procedure 03/30/2025 11:00 AM EST Office Visit Geriatrics [address] [facility], [place] [id number] Luciana Cisneros MD [address] [place], [place] [id number] follow up 6 months Geriatrics Comment on above: follow up 6 months Start: 02-21-2025 DIABETES SCREEN DIABETES SCREEN [facility] Start: 01-10-2025 Registered Referred Registered Refer [facility] - Yash Start: 12-06-2024 DIABETES SCREEN DIABETES SCREEN [facility] Start: 12-05-2024 End: 12-05-2024 Patient encounter procedure 12/05/2024 12:40 PM EDT Office Visit [facility] [place] [address] [place] [address] Stas Mora MD [address] [place] [address] reschedule from 12/01 [facility] Comment on above: reschedule from 12/01 Start: 12-01-2024 End: 12-01-2024 Patient encounter procedure 12/01/2024 9:40 AM EDT Office Visit [facility] [place] [address] [facility], [place] [id number] Stas Mora MD [address] [place], [place] [id number] 6 mo f/u [facility] [place] Comment on above: 6 mo f/u Start: 11-26-2024 End: 02-25-2025 CBC W Auto Differential panel - Blood COMPLETE BLOOD COUNT AND DIFFERENTIAL Lab Routine Essential hypertension, benign Expected: 11/26/2024 (Approximate), Expires: 02/25/2025 [facility] Comment on above: Expected: 11/26/2024 (Approximate), Expires: 02/25/2025 Start: 11-26-2024 End: 02-25-2025 Comprehensive metabolic 2000 panel - Serum or Plasma COMPREHENSIVE METABOLIC PANEL Lab Routine Essential hypertension, benign Hyperlipidemia, unspecified hyperlipidemia type Expected: 11/26/2024 (Approximate), Expires: 02/25/2025 [facility] Work Phone: Comment on above: Expected: 11/26/2024 (Approximate), Expires: 02/25/2025 Start: 11-26-2024 End: 02-25-2025 Lipid 1996 panel - Serum or Plasma LIPID PANEL BASIC Lab Routine Essential hypertension, benign Hyperlipidemia, unspecified hyperlipidemia type Expected: 11/26/2024 (Approximate), Expires: 02/25/2025 [facility] Comment on above: Expected: 11/26/2024 (Approximate), Expires: 02/25/2025 Start: 11-25-2024 RSV Vaccine (1 - 1-d ose 60+ series) RSV Vaccine (1 - 1-dose 60+ series) [facility] Comment on above: Postponed from 08/12 (Declined at this time) Start: 11-25-2024 RSV Vaccine (1 - 1-d ose 75+ series) RSV Vaccine (1 - 1-dose 75+ series) [facility] Comment on above: Postponed from 08/12 (Declined at this time) Start: 11-23-2024 [facility] Start: 11-21-2024 Influenza vaccination Influenza Vacc ine (#1) [facility] Start: 09-06-2024 Patient discharge [facility] Start: 09-02-2024 Admission procedure [facility] Start: 09-01-2024 End: 09-02-2024 [facility] Start: 09-01-2024 Blood culture Blood Culture [facility] Start: 09-01-2024 Application of intermittent pneumatic compression device [facility] Start: 09-01-2024 Fall prevention [facility] Start: 09-01-2024 Oxygen therapy [facility] Start: 09-01-2024 Provision of activit y privileges [facility] Start: 09-01-2024 Assessment of risk o f venous thromboembolism [facility] Start: 09-01-2024 Insertion of cathete r into peripheral vein [facility] Start: 09-01-2024 Providing care accor ding to standard [facility] Start: 09-01-2024 Referral to occupati onal therapist [facility] Start: 09-01-2024 Referral to service [facility] Start: 09-01-2024 [facility] Start: 09-01-2024 Following clinical pathway protocol [facility] Start: 09-01-2024 Admission procedure [facility] Start: 09-01-2024 Hospital admission, emergency, from emergency room, medical nature [facility] Start: 08-31-2024 End: 08-31-2024 Patient encounter procedure 08/31/2024 11:00 AM EDT Office Visit Geriatrics [address] [facility] [address] Luciana Cisneros MD [address] [place] [address] 3 month f/u Geriatrics Comment on above: 3 month f/u Start: 2024 Anxiety Screening Anxiety Screening [facility] Start: 2024 Depression Screening Depression Scre ening [facility] Start: 07-08-2024 DIABETES SCREEN DIABETES SCREEN [facility] Start: 06-02-2024 Hepatitis B surface antibody level LDL Cholesterol [facility] Start: 06-01-2024 End: 06-01-2024 Patient encounter procedure 06/01/2024 3:00 PM EDT Office Visit Geriatrics [address] [place] [address] Luciana Cisneros MD [address] [place] [address] Follow up visit for MRI Geriatrics Comment on above: Follow up visit for MRI Start: 06-01-2024 Covid-19 Vaccine () Covid-19 Vaccine () [facility] Start: 05-30-2024 End: 05-30-2024 Patient encounter procedure 05/30/2024 11:20 AM EDT Office Visit [facility] [place] [address] [place] [address] Luciana Cisneros MD [address] [place] [address] Follow up visit for MRI [facility] [place] Comment on above: Follow up visit for MRI Start: 05-26-2024 End: 05-26-2024 Patient encounter procedure 05/26/2024 9:20 AM EST Office Visit Family [facility] [address] [place], [place] [address] Stas Mora MD [address] [place] [address] 6 mo f/u Family [facility] Comment on above: 6 mo f/u Start: 05-25-2024 End: 08-24-2024 CBC W Auto Differential panel - Blood COMPLETE BLOOD COUNT AND DIFFERENTIAL Lab Routine Abnormal CBC Expected: 05/25/2024 (Approximate), Expires: 08/24/2024 [facility] Comment on above: Expected: 05/25/2024 (Approximate), Expires: 08/24/2024 Start: 05-25-2024 End: 08-24-2024 Comprehensive metabolic 2000 panel - Serum or Plasma COMPREHENSIVE METABOLIC PANEL Lab Routine Essential hypertension, benign Hyperlipidemia, unspecified hyperlipidemia type Expected: 05/25/2024 (Approximate), Expires: 08/24/2024 [facility] Work Phone: Comment on above: Expected: 05/25/2024 (Approximate), Expires: 08/24/2024 Start: 05-25-2024 End: 08-24-2024 Lipid 1996 panel - Serum or Plasma LIPID PANEL BASIC Lab Routine Essential hypertension, benign Hyperlipidemia, unspecified hyperlipidemia type Expected: 05/25/2024 (Approximate), Expires: 08/24/2024 [facility] Comment on above: Expected: 05/25/2024 (Approximate), Expires: 08/24/2024 Start: 05-25-2024 End: 05-25-2024 ambulatory 05/25/2024 8:30 AM EST Results Only [place] [facility] [place] [address] [place] [address] [facility] Start: 05-23-2024 End: 05-23-2024 Patient encounter procedure 05/23/2024 2:30 PM EST Appointment [facility] [address] [place] [address] Cognitive impairment, mild, 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] [facility] Comment on above: Cognitive impairment , mild, 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] Start: 04-29-2024 End: 04-29-2024 Patient encounter procedure 04/29/2024 3:40 PM EST Office Visit [facility] [address] [place] [address] Stas Mora MD [address] [place], [place] [id number] memory issues,See TE [facility] Comment on above: memory issues,See TE Start: 04-27-2024 End: 04-27-2024 Patient encounter procedure 04/27/2024 9:30 AM EST Office Visit Geriatrics [address] [place] [address] Luciana Cisneros MD [address] [place] [address] Dementia, unspecified dementia severity, unspecified dementia type, unspecified whether behavioral, psychotic, or mood disturbance or anxiety (HCC) [F03.90] [facility] Comment on above: Dementia, unspecifie d dementia severity, unspecified dementia type, unspecified whether behavioral, psychotic, or mood disturbance or anxiety (HCC) [F03.90] Start: 03-23-2024 Advance Directive Discussion Advance Directive Discussion [facility] Start: 03-23-2024 Medicare Advantage A nnual Wellness Visit Medicare Advantage Annual Wellness Visit [facility] Start: 03-13-2024 DIABETES SCREEN DIABETES SCREEN [facility] Start: 11-26-2023 End: 11-26-2023 Patient encounter procedure [facility] Comment on above: 6 month follow up 6 month follow up, jessica bashir, on aricept x 3 months Start: 11-22-2023 Covid-19 Vaccine () Covid-19 Vaccine () [facility] Start: 11-22-2023 Influenza vaccination Influenza Vacc ine (#1) [facility] Start: 09-15-2023 End: 09-15-2023 Patient encounter procedure 09/15/2023 8:40 AM EDT Office Visit [facility] [address] [place] [address] Stas Mora MD [address] [place], [place] [id number] leg swelling- both legs--See triage 09/14/2023. [facility] Comment on above: leg swelling- both l egs--See triage 09/14/2023. Start: 08-16-2023 Hepatitis B surface antibody level LDL CHOLESTEROL [facility] Start: 08-14-2023 End: 08-14-2023 Patient encounter procedure 08/14/2023 10:00 AM EDT Office Visit [facility] [address] [place] [id number] Stas Mora MD [address] [place], [place] [id number] Memory Issues [facility] Comment on above: Memory Issues Start: 06-04-2023 End: 09-03-2023 Ferritin [Mass/volume] in Serum or Plasma [facility] Work Phone: Comment on above: Expected: 06/04/2023 , Expires: 09/03/2023 Start: 06-04-2023 End: 09-03-2023 Iron and Iron binding capacity panel - Serum or Plasma [facility] Work Phone: Comment on above: Expected: 06/04/2023 , Expires: 09/03/2023 Start: 06-01-2023 End: 08-31-2023 CBC panel - Blood by Automated count CBC Lab Routine Paroxysmal atrial fibrillation (HCC) Essential hypertension, benign Expected: 06/01/2023 (Approximate), Expires: 08/31/2023 [facility] Work Phone: Comment on above: Expected: 06/01/2023 (Approximate), Expires: 08/31/2023 Start: 06-01-2023 End: 08-31-2023 Comprehensive metabolic 2000 panel - Serum or Plasma COMP METABOLIC PANEL Lab Routine Paroxysmal atrial fibrillation (HCC) Essential hypertension, benign Hyperlipidemia, unspecified hyperlipidemia type Expected: 06/01/2023 (Approximate), Expires: 08/31/2023 [facility] Work Phone: Comment on above: Expected: 06/01/2023 (Approximate), Expires: 08/31/2023 Start: 06-01-2023 End: 08-31-2023 Lipid 1996 panel - Serum or Plasma LIPID PANEL BASIC Lab Routine Paroxysmal atrial fibrillation (HCC) Essential hypertension, benign Hyperlipidemia, unspecified hyperlipidemia type Expected: 06/01/2023 (Approximate), Expires: 08/31/2023 [facility] Work Phone: Comment on above: Expected: 06/01/2023 (Approximate), Expires: 08/31/2023 Start: 05-13-2023 Covid-19 Vaccine () Covid-19 Vaccine () [facility] Start: 03-23-2023 Advance Directive Discussion Advance Directive Discussion [facility] Start: 03-23-2023 Behavioral Health Screening Behavioral Health Screening [facility] Start: 03-23-2023 Depression Assessment Depression Ass essment [facility] Start: 02-21-2023 Hepatitis B surface antibody level LDL CHOLESTEROL [facility] Start: 02-10-2023 [facility] Start: 12-06-2022 Hepatitis B surface antibody level LDL CHOLESTEROL [facility] Start: 11-21-2022 Covid-19 Vaccine () Covid-19 Vaccine () [facility] Start: 11-21-2022 Influenza vaccination [facility] Start: 09-05-2022 PNEUMOCOCCAL: 65+ (2 - PCV) PNEUMOCOCCAL: 65+ (2 - PCV) [facility] Comment on above: Postponed from 02/21 (Declined at this time) Start: 07-08-2022 Hepatitis B surface antibody level LDL CHOLESTEROL [facility] Start: 04-26-2022 COVID-19 VACCINE (6 - Pfizer series) COVID-19 VACCINE (6 - Pfizer series) [facility] Start: 03-23-2022 ADVANCE DIRECTIVE DISCUSSION ADVANCE DIRECTIVE DISCUSSION [facility] Start: 03-23-2022 DEPRESSION ASSESSMENT DEPRESSION ASS ESSMENT [facility] Start: 03-13-2022 Hepatitis B surface antibody level LDL CHOLESTEROL [facility] Start: 03-10-2022 End: 05-10-2022 CBC panel - Blood by Automated count CBC Lab Routine TIA (transient ischemic attack) Essential hypertension, benign Atherosclerosis 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, unspecified vessel or lesion type, unspecified whether picayune or transplanted heart Expected: 03/10/2022 (Approximate), Expires: 05/10/2022 [facility] Work Phone: Comment on above: Expected: 03/10/2022 (Approximate), Expires: 05/10/2022 Start: 03-10-2022 End: 05-10-2022 Comprehensive metabolic 2000 panel - Serum or Plasma COMP METABOLIC PANEL Lab Routine TIA (transient ischemic attack) Essential hypertension, benign Atherosclerosis 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, unspecified vessel or lesion type, unspecified whether picayune or transplanted heart Expected: 03/10/2022 (Approximate), Expires: 05/10/2022 [facility] Work Phone: Comment on above: Expected: 03/10/2022 (Approximate), Expires: 05/10/2022 Start: 03-10-2022 End: 05-10-2022 Lipid 1996 panel - Serum or Plasma LIPID PANEL BASIC Lab Routine TIA (transient ischemic attack) Essential hypertension, benign Atherosclerosis 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, unspecified vessel or lesion type, unspecified whether picayune or transplanted heart Expected: 03/10/2022 (Approximate), Expires: 05/10/2022 [facility] Work Phone: Comment on above: Expected: 03/10/2022 (Approximate), Expires: 05/10/2022 Start: 01-03-2022 End: 03-05-2022 Comprehensive metabolic 2000 panel - Serum or Plasma COMP METABOLIC PANEL Lab Routine Atherosclerosis 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, unspecified vessel or lesion type, unspecified whether picayune or transplanted heart Essential hypertension, benign Expected: 01/03/2022 (Approximate), Expires: 03/05/2022 [facility] Work Phone: Comment on above: Expected: 01/03/2022 (Approximate), Expires: 03/05/2022 Start: 01-03-2022 End: 03-05-2022 LIPID PANEL BASIC LIPID PANEL BASIC Lab Routine Atherosclerosis 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, unspecified vessel or lesion type, unspecified whether picayune or transplanted heart Essential hypertension, benign Expected: 01/03/2022 (Approximate), Expires: 03/05/2022 [facility] Work Phone: Comment on above: Expected: 01/03/2022 (Approximate), Expires: 03/05/2022 Start: 12-24-2021 Prothrombin time [facility] Work Phone: Start: 12-23-2021 Prothrombin time [facility] Work Phone: Start: 12-22-2021 Patient discharge [facility] Work Phone: Start: 12-21-2021 Assessment of risk o f venous thromboembolism [facility] Work Phone: Start: 12-21-2021 Cardiac monitoring [facility] Work Phone: Start: 12-21-2021 Catheterization of vein [facility] Work Phone: Start: 12-21-2021 Continuous pulse oximetry [facility] Work Phone: Start: 12-21-2021 Elevation of head of bed [facility] Work Phone: Start: 12-21-2021 Exercises [facility] Work Phone: Start: 12-21-[address] anned interventions [facility] Work Phone: Start: 12-21-2021 Insertion of cathete r into peripheral vein [facility] Work Phone: Start: 12-21-2021 Measuring intake and output [facility] Work Phone: Start: 12-21-2021 Notification of physician [facility] Work Phone: Start: 12-21-2021 Oxygen therapy [facility] Work Phone: Start: 12-21-2021 Providing care accor ding to standard [facility] Work Phone: Start: 12-21-2021 Provision of activit y privileges [facility] Work Phone: Start: 12-21-2021 Referral to occupati onal therapist [facility] Work Phone: Start: 12-21-2021 Referral to service [facility] Work Phone: Start: 12-21-2021 Tobacco use cessatio n education [facility] Work Phone: Start: 12-21-2021 US scan of thyroid Thyroid [facility] Work Phone: Start: 12-21-2021 [facility] Work Phone: Start: 12-21-2021 End: 12-21-2021 Following clinical pathway protocol [facility] Work Phone: Start: 12-21-2021 Verification routine [facility] Work Phone: Start: 12-21-2021 Admission procedure [facility] Work Phone: Start: 12-21-2021 CT of head without contrast STROKE Brain/Head without Cont [facility] Work Phone: Start: 12-21-2021 CT Unspecified body region WO contrast [facility] Work Phone: Start: 12-21-2021 Oxygen therapy [facility] Work Phone: Start: 12-21-2021 End: 12-22-2021 [facility] Work Phone: Start: 11-21-2021 Influenza vaccination INFLUENZA (#1) [facility] Start: 09-24-2021 COVID-19 VACCINE (5 - Booster for Pfizer series) COVID-19 VACCINE (5 - Booster for Pfizer series) [facility] Start: 08-30-2021 End: 10-30-2021 PT panel - Platelet poor plasma by Coagulation assay [facility] Work Phone: Comment on above: Expected: 08/30/2021 , Expires: 10/30/2021 Start: 07-08-2021 End: 09-07-2021 Comprehensive metabolic 2000 panel - Serum or Plasma [facility] Work Phone: Comment on above: Expected: 07/08/2021 (Approximate), Expires: 09/07/2021 Start: 07-08-2021 End: 09-07-2021 LIPID PANEL BASIC [facility] Work Phone: Comment on above: Expected: 07/08/2021 (Approximate), Expires: 09/07/2021 Start: 04-27-2021 COVID-19 VACCINE (4 - Booster for Pfizer series) COVID-19 VACCINE (4 - Booster for Pfizer series) [facility] Start: 03-23-2021 ADVANCE DIRECTIVE DISCUSSION ADVANCE DIRECTIVE DISCUSSION [facility] Start: 03-23-2021 DEPRESSION ASSESSMENT DEPRESSION ASS ESSMENT [facility] Start: 02-21-2009 Pneumococcal Vaccine : 65+ (2 - PCV) Pneumococcal Vaccine: 65+ (2 - PCV) [facility] Start: 02-21-2009 PNEUMOCOCCAL: 65+ (2 - PCV) PNEUMOCOCCAL: 65+ (2 - PCV) [facility] Start: 02-23-2008 Urine microalbumin profile DTAP,TDAP,TD (1 - Tdap) [facility] Start: 1995 RSV Vaccine (1 - 1-d ose 60+ series) RSV Vaccine (1 - 1-dose 60+ series) [facility] Start: 08-12-1985 SHINGRIX VACCINE (1 of 2) VALDES GRIX VACCINE (1 of 2) [facility] Anion gap in Serum o r Plasma [facility] BUN/Creatinine ratio [facility] Calcium [Mass/volume ] in Serum or Plasma [facility] Carbon dioxide, tota l [Moles/volume] in Central venous blood [facility] Creatinine [Mass/vol ume] in Serum or Plasma [facility] Glucose [Mass/volume ] in Serum or Plasma [facility] Hemoglobin.gastroint estin al.lower [Presence] in Stool by Immunoassay FECAL OCCULT BLOOD TEST Lab Routine Abnormal CBC 06/04/2023 2:13 PM EDT [facility] Work Phone: INR in Blood by Coagulation assay [facility] Measurement of renal function [facility] End: 05-27-2025 MR Brain WO contrast MRI BRAIN W QUANT WO IVCON Radiology Routine Cognitive impairment, mild, so stated 1 Occurrences starting 04/27/2024 until 05/27/2025 [facility] Work Phone: Comment on above: 1 Occurrences starti ng 04/27/2024 until 05/27/2025 End: 05-27-2025 MR Unspecified body region 3D post processing MRI 3D BRAIN QUANT Radiology Routine Cognitive impairment, mild, so stated 1 Occurrences starting 04/27/2024 until 05/27/2025 [facility] Comment on above: 1 Occurrences starti ng 04/27/2024 until 05/27/2025 End: 03-17-2024 Mri brain brain stem w/o contrast material MRI BRAIN WO IVCON Radiology STAT Cerebral infarction, unspecified mechanism (HCC) 1 Occurrences starting 02/16/2023 until 03/17/2024 [facility] Work Phone: Comment on above: 1 Occurrences starti ng 02/16/2023 until 03/17/2024 Mri brain brain stem w/o contrast material MRI BRAIN WO IVCON Radiology STAT Cerebral infarction, unspecified mechanism (HCC) 02/17/2023 8:13 AM EST [facility] Work Phone: Patient Education ED Weakness (U ncertain Cause) [facility] Work Phone: Patient referral [facility] Work Phone: Potassium measurement [facility] Prothrombin time [facility] End: 09-13-2022 PT panel - Platelet poor plasma by Coagulation assay PROTHROMBIN TIME/PT Lab Routine [facility] current use of anticoagulant Encounter for monitoring Coumadin therapy Once per week for 99 Occurrences starting 09/13/2021 until 09/13/2022 [facility] Work Phone: Comment on above: Once per week for 99 Occurrences starting 09/13/2021 until 09/13/2022 PT panel - Platelet poor plasma by Coagulation assay PROTHROMBIN TIME/PT Lab Routine [facility] current use of anticoagulant Encounter for monitoring Coumadin therapy 09/13/2021 8:42 AM EDT [facility] Work Phone: End: 01-16-2024 PT panel - Platelet poor plasma by Coagulation assay PROTHROMBIN TIME/PT Lab Routine [facility] current use of anticoagulant Paroxysmal atrial fibrillation (HCC) Once per week for 99 Occurrences starting 01/16/2023 until 01/16/2024 [facility] Work Phone: Comment on above: Once per week for 99 Occurrences starting 01/16/2023 until 01/16/2024 End: 12-23-2024 PT panel - Platelet poor plasma by Coagulation assay PROTHROMBIN TIME Lab STAT [facility] current use of anticoagulant 24 Occurrences starting 12/24/2023 until 12/23/2024 [facility] Work Phone: Comment on above: 24 Occurrences start ing 12/24/2023 until 12/23/2024 Serum chloride measurement [facility] Sodium measurement [facility] Urea nitrogen [Mass/volume] in Serum or Plasma [facility] End: 01-25-2023 Us soft tissue head & neck real time imge docm US THYROID/PARATHYROID Radiology Routine Thyroid nodule 1 Occurrences starting 12/26/2021 until 01/25/2023 [facility] Work Phone: Comment on above: 1 Occurrences starti ng 12/26/2021 until 01/25/2023 [facility] Immunizations Immunization Date Immunization Notes Care Provider Fa sam 12-03-2023 influenza virus vacc ine, unspecified formulation Stas Mora MD Work Phone: [facility] 01-10-2023 influenza (HD-IIV4) vaccine, age 65+ yr, high dose, quadrivalent, PF (FLUZONE HIGH-DOSE) Coretta Yeimi [facility] 01-10-2023 influenza virus vacc ine, unspecified formulation Coretta Yeimi [facility] 12-26-2021 influenza, high-dose , quadrivalent vaccine (FLUZONE HIGH DOSE QUADRIVALENT) Stas Mora MD Work Phone: [facility] 12-26-2021 influenza virus vacc ine, unspecified formulation Senia Cross [facility] 02-27-2021 tetanus toxoid, redu natividad diphtheria toxoid, and acellular pertussis vaccine, adsorbed Stas Mora MD Work Phone: [facility] 02-27-2021 zoster vaccine recombinant Stas Mora MD Work Phone: [facility] 12-25-2020 Covid (Pfizer) Dr. Stas gonzales Work Phone: [facility] 12-10-2020 influenza (HD-IIV4) vaccine, age 65+ yr, high dose, quadrivalent, PF (FLUZONE HIGH-DOSE) Coretta [facility] 12-10-2020 influenza, high dose seasonal, preservative-free Stas Mora MD Work Phone: [facility] 09-17-2020 zoster vaccine recombinant Stas Mora MD Work Phone: [facility] 05-09-2020 Covid (Pfizer) Dr. Stas gonzales Work Phone: [facility] 04-18-2020 Covid (Pfizer) Dr. Stas gonzales Work Phone: [facility] 12-24-2016 influenza, high dose seasonal, preservative-free Stas Mora MD Work Phone: [facility] 12-22-2015 Influenza virus vaccine [facility] 12-22-2015 influenza, seasonal, injectable, preservative free Stas Mora MD Work Phone: [facility] Work Phone: 01-30-2014 influenza, high dose seasonal, preservative-free Stas Mora MD Work Phone: [facility] Work Phone: 01-24-2013 influenza virus vacc ine, unspecified formulation Stas Mora MD Work Phone: [facility] 02-22-2008 pneumococcal polysaccharide vaccine, 23 valent Stas Mora MD Work Phone: [facility] Work Phone: 02-22-2008 tetanus and diphther ia toxoids, adsorbed, preservative free, for adult use (2 Lf of tetanus toxoid and 2 Lf of diphtheria toxoid) Stas Mora MD Work Phone: [facility] Work Phone: Payers Date Payer Category Payer Self-pay [id number] 2022 Unknown [id number] 2016 [place] [employer] [place] [id number] 2016-Present [phone] [address] [place] [address] O [id number] 2016 Medicare [employer] [place] [id number] 2016-Present [phone] [address] [place] [address] O [id number] 2016 Medicare ([place] Care[place] [id number] 2016 Medicare [id number] 1935 Unknown [id number] 2.16840.1.641808.3.579. 2.627 1935 Unknown [id number] 2.840.1.206452.3.579. 2.627 Unknown [place] AUTH REQUIR ED SEE NOTE [id number] Unknown [place] AUTH REQUIR ED SEE NOTE . [id number] Unknown [id number] 2.16840.1.989325.3.579. 2.462 Unknown [id number] 2.16840.1.501458.3.579. 2.462 Unknown [id number] 2.16840.1.122953.3.579. 2.462 Unknown [id number] 2.16840.1.575432.3.579. 2.462 Unknown [id number] 2.16840.1.069927.3.579. 2.462 Unknown [id number] 2.16840.1.671170.3.579. 2.462 Unknown [id number] 2.16840.1.578672.3.579. 2.462 Unknown [id number] 2.16840.1.181491.3.579. 2.462 Unknown [id number] 2.16840.1.595264.3.579. 2.462 Unknown [id number] 2.16.840.1.618699.3.579. 2.462 Unknown [id number] 2.16.840.1.017775.3.579. 2.462 Unknown [id number] 2.16.840.1.002906.3.579. 2.462 Unknown [id number] 2.16.840.1.980069.3.579. 2.462 Unknown [id number] 2.16840.1.714759.3.579. 2.462 Unknown [id number] .840.1.079663.3.579. 2.462 Unknown [id number] 2.840.1.295097.3.579. 2.462 Unknown [id number] 2.840.1.648207.3.579. 2.462 Unknown [id number] 2.840.1.569488.3.579. 2.462 Unknown [id number] 2.840.1.378577.3.579. 2.462 Unknown [id number] 2.840.1.526834.3.579. 2.462 Unknown [id number] 2.840.1.836616.3.579. 2.462 Unknown [id number] 2.840.1.456423.3.579. 2.462 Unknown [id number] .840.1.614316.3.579. 2.462 Unknown [id number] .840.1.362075.3.579. 2.462 Unknown [id number] 2.840.1.528069.3.579. 2.462 Unknown [id number] 2.16840.1.716689.3.579. 2.462 Unknown [id number] 2.16840.1.918692.3.579. 2.462 Unknown [id number] 2.840.1.614075.3.579. 2.462 Unknown [id number] 2.16.840.1.491985.3.579. 2.462 Unknown [id number] 2.16.840.1.300053.3.579. 2.462 Unknown [id number] 2.16.840.1.141248.3.579. 2.462 Unknown [id number] 2.16.840.1.481625.3.579. 2.462 Unknown [id number] 2.16.840.1.263352.3.579. 2.462 Unknown [id number] 2.16.840.1.105164.3.579. 2.462 Unknown [id number] 2.16.840.1.088165.3.579. 2.462 Unknown [id number] 2.16.840.1.142421.3.579. 2.462 Unknown [id number] 2.16.840.1.086358.3.579. 2.462 Unknown [id number] 2.16.840.1.743029.3.579. 2.462 Unknown [id number] 2.16.840.1.185556.3.579. 2.462 Unknown [id number] 2.16.840.1.721780.3.579. 2.462 Social History Date Type Detail Facility Start: 05-04-2017 End: 01-06-2025 Tobacco smoking status NHIS Ex-smoker [facility] Start: 02-15-2021 End: 07-28-2024 Alcohol intake Current non-drinker of alcohol (finding) [facility] Start: 08-26-2020 End: 08-29-2021 History SDOH Alcohol Frequency 2 [facility] Start: 08-26-2020 End: 08-29-2021 History SDOH Alcohol Std Drinks 1 [facility] Start: 08-26-2020 End: 08-29-2021 History SDOH Social Connections [facility] 3 [facility] Start: 08-26-2020 End: 08-29-2021 History SDOH Social Connections Living 5 [facility] Start: 08-26-2020 History SDOH Physical Activity MPS 6 [facility] Start: 08-26-2020 Education 12 [facility] Start: 1935 Sex Assigned At Male [facility] Start: 02-11-2020 End: 12-26-2021 Exposure to SARS-CoV-2 (event) Not sure [facility] History of tobacco use Current smoker [facility] Start: 05-04-2017 End: 12-26-2021 Tobacco use and exposure Smokeless tobacco non-user [facility] Start: 12-21-2021 End: 02-10-2023 Tobacco smoking status NHIS Unknown if ever smoked [facility] Start: 12-22-2021 Non-smoker [facility] Start: 12-26-2021 Tobacco Comment 30 yaers ago [facility] Start: 02-28-2020 End: 08-29-2021 History of Social function [facility] Start: 02-28-2020 End: 08-29-2021 Social connection and isolation panel [facility] Do you belong to any clubs or organizations such as islam groups, unions, fraternal or athletic groups, or school groups? No [facility] Are you now , , , , never or living with a partner? [facility] How often to you hav e a drink containing alcohol? Monthly or less [facility] How many standard dr inks containing alcohol do you have on a typical day? 1 or 2 [facility] How often do you hav e 6 or more drinks on 1 occasion? Never [facility] How hard is it for y ou to pay for the very basics like food, housing, medical care, and heating Not hard at all [facility] Do you feel stress - tense, restless, nervous, or anxious, or unable to sleep at night because your mind is troubled all the time - these days [OSQ] Not at all [facility] (I/We) worried velvet er (my/our) food would run out before (I/we) got money to buy more. Never true [facility] Start: 08-26-2020 Gender identity Identifies as male gender (finding) [facility] Start: 08-26-2020 Sexual orientation Heterosexual (finding) [facility] Sex Assigned At Sex [facility] Are you now , , , , never or living with a partner? [facility] How often to you hav e a drink containing alcohol? 2-4 times a month [facility] Goals Date Patient Goal Desired Activity /State Functional Status Date Assessment Result Facility 09-06-2024 Functional status Ambulates [facility] Work Phone: 07-26-2024 Total score [AUDIT-C] 1 07/27/19 6:26 PM EDT User, Olena [facility] 07-26-2024 Within the last year , have you been humiliated or emotionally abused in other ways by your partner or ex-partner? No 07/26/2024 6:26 PM EDT [facility], [facility] 07-26-2024 Within the last year , have you been afraid of your partner or ex-partner? No 07/26/2024 6:26 PM EDT [facility], [facility] 07-26-2024 Within the last year , have you been raped or forced to have any kind of sexual activity by your partner or ex-partner? No 07/26/2024 6:26 PM EDT [facility], [facility] 07-26-2024 Within the last year , have you been kicked, hit, slapped, or otherwise physically hurt by your partner or ex-partner? No 07/26/2024 6:26 PM EDT User, Mycsamuelt No [facility] 07-26-2024 How often to you hav e a drink containing alcohol? Monthly or less 07/26/2024 6:26 PM EDT User, [email or web address] Monthly or less [facility] 07-26-[address] inks containing alcohol do you have on a typical day? 1 or 2 07/26/2024 6:26 PM EDT User, Mycsamuelt 1 or 2 [facility] 07-26-2024 How often do you hav e 6 or more drinks on 1 occasion? Never 07/26/2024 6:26 PM EDT User, [email or web address] Never [facility] 11-17-2022 Functional Status Up ad tara Samira [facility] 11-17-2022 Functional Status Identified as high risk, Fall ID band on, Room located near nursing station [facility] 12-22-2021 Functional status Ambulates;Chair [facility] Work Phone: 07-02-2016 Are you deaf, or do you have serious difficulty hearing No 07/02/2016 2:52 PM EDT Anita Zhang, DO No [facility] Work Phone: 07-02-2016 Are you blind, or do you have serious difficulty seeing, even when wearing glasses No 07/02/2016 2:52 PM EDT Anita Zhang, DO No [facility] 07-02-2016 Do you have serious difficulty walking or climbing stairs No 07/02/2016 2:52 PM EDT Anita Zhang, DO No [facility] 07-02-2016 Do you have difficul ty dressing or bathing No 07/02/2016 2:52 PM EDT Anita Zhang, DO No [facility] 07-02-2016 Because of a physica l, mental, or emotional condition, do you have difficulty doing errands alone such as visiting a physician's office or shopping No 07/02/2016 2:52 PM EDT Anita Zhang, DO No [facility] Mental Status Date Assessment Result Facility 09-06-2024 Cognitive function Voice/Name [facility] Work Phone: 09-05-2024 Cognitive function Appropriate;Cooperativ e [facility] Work Phone: 02-10-2023 Cognitive function Level Of Cons ciousness Awake;Alert;Appropriate;Fol lows Commands [facility] Work Phone: 11-17-2022 Mental Status Orientation Oriented x 4 [facility] 11-17-2022 Mental Status [facility] 12-22-2021 Cognitive function Voice/Name [facility] Work Phone: 12-21-2021 Cognitive function Voice/Name [facility] Work Phone: 07-02-2016 Because of a physica l, mental, or emotional condition, do you have serious difficulty concentrating, remembering, or making decisions No 07/02/2016 2:52 PM EDT Anita Zhang, DO No [facility] Clinical Notes 03-12-2020 to 09-21-2024 Telephone Encounter - Petty Vargas - 09/21/2024 9:21 AM EDTTelephone Encounter - Petty Vargas - 09/21/2024 9:21 AM EDT Note Date & Type Note Facility 09-21-2024 Telephone encounter Note Form atting of this note might be different from the original. [facility]. Maria Guadalupe states that he has been in there for two weeks. Please advise [facility] 09-21-2024 Miscellaneous Notes Formattin g of this note might be different from the original. [facility] healthy living for rehabilitation. Maria Guadalupe states that he has been in there for two weeks. Please advise documented in this encounter [facility] 09-06-2024 Consult note [facility] 09-06-2024 Consult note Note Date/Time September 06, 2024 4:37pm [facility] Medical Records Department [address] [place] [address] Counseling Note - Pharmacy 09/06/24 1143 MR#: [id number] Acct: [id number] Name: ROBY FLORES Radha Rep #:[id number] : 1935 89 From: Isabelle Summers PCP: Dr. Stas Mora MD Status:AD M IN Y Location: [place] [address] Pharm[place] Med Reconciliation Pharmacy Service has performed discharge [...] Signature (if applicable): Date CC: ~ Signed [facility] Work Phone: 1(765) 954-805306-17-2025 Discharge summary Author Navid Dominguez [facility] Note Date/Time September 06, 2024 11:[address] [place] [address] [facility] System Medical Records Department [address] [place] [address] Discharge Summary 09/06/24 1109 MR#: [id number] Acct: [id number] Name: ROBY FLORES Rep #:[id number] : 1935 89 From: Navid Trejo PCP: Dr. Stas Mora MD Status:[facility] IN Location: [place] [address] Providers Date of Admission: 09/02/24 Date of [...] [facility] 09/06: INR 2.4. Hold warfarin [...] The daughter is the healthcare power of lining cementer. #History of dementia: On rivastigmine #Dyslipidemia: On [...] (Auto) 66.8, Lymph % (Auto) 16.4 L, [place] % (Auto) 9.1, Eos % (Auto) 6.3 [...] in before D/C Order can be placed): Long Term Facility Charges/Coding Visit Charges Inpatient E&M: 77906 Disch Hosp >30min 09/06/24 1114 <Electronically signed by Navid Dominguez MD> Cosigner Signature (if applicable): CC: Dr. Stas Mora MD; Dr. Navid Dominguez MD~ Signed [facility] Work Phone: 1(803) 988-231806-17-2025 Discharge summary Author Navid Dominguez [facility] Note Date/Time September 06, 2024 11:0 9am [facility] Medical Records Department [address] [place] [address] Transfer to [facility] Emergency Department MR#: [id number] Acct: [id number] Name: ROBY FLORES Rep #:[id number] : 1935 89 From: Navid Trejo PCP: Dr. Stas Mora MD Status:AD M IN Certification of patient admission REQUIRED AT TIME OF ADMISSION. I CERTIFY THAT POST-HOSPITAL ECF SERVICES ARE REQUIRED TO BE GIVEN ON AN IN-PATIENT BASIS BECAUSE OF THE ABOVE NAMED PATIENT'S NEED FOR [facility] CARE ON A CONTINUING BASIS FOR THE CONDITION(S) FOR WHICH HE/SHE WAS RECEIVING IN-PATIENT HOSPITAL SERVICES PRIOR TO HIS/HER TRANSFER TO THE [facility]. 09/06/24 1109<Electronically signed by Navid Dominguez MD> [...] [facility] # Fever * Patient developed [...] The daughter is the healthcare power of lining cementer. #History of dementia: On rivastigmine #Dyslipidemia: On [...] liberalized regular diet with consistency/texture as per PHYSICIAN OFFICE ASSISTANT. Will continue 120mL ensure plus HP 4 [...] in before D/C Order can be placed): Long Term Facility 09/06/24 1109 <Electronically signed by Navid Dominguez MD> Cosigner Signature (if applicable): CC: Dr. Stas Mora MD; Dr. Kathy Wells MD ~ [facility] Work Phone: 1(924) 948-780406-17-2025 Discharge summary [facility] Medical Records Department [address] [place] [address] Discharge Summary 09/06/24 1109 MR#: [id number] Acct: [id number] Name: ROBY FLORES Rep #:[id number] : 1935 89 From: Navid Trejo PCP: Dr. Stas Mora MD Status:[facility] IN Location: [address] Providers Date of Admission: 09/02/24 Date [...] [facility] 09/06: INR 2.4. Hold warfarin [...] The daughter is the healthcare power of lining cementer. #History of dementia: On rivastigmine #Dyslipidemia: On [...] (Auto) 66.8, Lymph % (Auto) 16.4 L, [place] % (Auto) 9.1, Eos % (Auto) 6.3 [...] in before D/C Order can be placed): Long Term Facility Charges/Coding Visit Charges Inpatient E&M: 65766 Disch Hosp >30min 09/06/24 1114 Cosigner Signature (if applicable): CC: Dr. Stas Mora MD; Dr. Navid Dominguez MD~ Signed [facility]06-17-2025 Discharge summary [facility] Medical Records Department [address] [place] [address] Transfer to [facility] Emergency Department MR#: [id number] Acct: [id number] Name: ROBY FLORES Rep #:[id number] : 1935 89 From: Navid Trejo PCP: Dr. Stas Mora MD Status:AD M IN Certification of patient admission REQUIRED AT TIME OF ADMISSION. I CERTIFY THAT POST-HOSPITAL ECF SERVICES ARE REQUIRED TO BE GIVEN ON AN IN-PATIENT BASIS BECAUSE OF THE ABOVE NAMED PATIENT'S NEED FOR [facility] CARE ON A CONTINUING BASIS FOR THE [...] The daughter is the healthcare power of lining cementer. #History of dementia: On rivastigmine #Dyslipidemia: On [...] liberalized regular diet with consistency/texture as per PHYSICIAN OFFICE ASSISTANT. Will continue 120mL ensure plus HP 4 [...] in before D/C Order can be placed): Long Term Facility 09/06/24 1109 Cosigner Signature (if applicable): CC: Dr. Stas Mora MD; Dr. Kathy Wells MD ~ [facility]06-17-2025 [facility] Medical Records Department [address] [place] [address] Discharge Summary 09/06/24 1109 MR#: [id number] Acct: [id number] Name: ROBY FLORES Rep #: [id number] : 1935 89 From: Navid Dominguez MD PCP: Dr. Stas Mora MD Status:ADM IN [facility] Prov[facility] Date of Admission: 09/02/24 Date of [...] The daughter is the healthcare power of lining cementer. #History of dementia: On rivastigmine #Dyslipidemia: On [...] / Lab / Microbiol (more content not included)...[facility] 09-05-2024 Progress note Author Navid Dominguez [facility] Note Date/Time September 05, 2024 4:15 pm [facility] Medical Records Department [address] [place] [address] Progress Note - Hospitalist 09/05/24 1608 MR#: [id number] Acct: [id number] Name: ROBY FLORES Rep #:[id number] : 1935 89 From: Navid Trejo PCP: Dr. Stas Mora MD Status:AD M IN Location: [place] [address] Reason for Visit Reason for Visit: Diagnoses [...] Clarity Clear, Urine pH 7.0, Ur Specific Alexander 1.005, Urine Protein 15 H, Urine Glucose [...] 77.2 H, Lymph % (Auto) 9.8 L, Jim [place] % (Auto) 7.9, Eos % (Auto) 4.0, [...] the [facility] # Fever * Patient developed [...] The daughter is the healthcare power of lining cementer. #History of dementia: On rivastigmine #Dyslipidemia: On statin #Benign essential hypertension: On lisinopril. DVT prophylaxis: * Resume Coumadin today. INR 1.8. Daughter still thinking about that she wants him to continue otherwise. Code status: DNRCCA no intubation * Disposition: Awaiting placement. PT OT on board. Charges/Coding Visit Charges Inpatient E&M: 35618 Subs Hosp L2 09/05/24 1615 <Electronically signed by Navid Dominguez MD> Cosigner Signature (if applicable): CC: ~ Signed [facility] Work Phone: 1(810) 484-313106-16-2025 Progress note [facility] Medical Records Department [address] [place] [address] Progress Note - Hospitalist 09/05/24 1607 MR#: [id number] Acct: [id number] Name: ROBY FLORES Radha Rep #:[id number] : 1935 89 From: Navid Trejo PCP: Dr. Stas Mora MD Status:AD M IN Location: [place]3 MT569-3 Reason for Visit Reason for Visit: Diagnoses [...] Clarity Clear, Urine pH 7.0, Ur Specific Alexander 1.005, Urine Protein 15 H, Urine Glucose [...] 77.2 H, Lymph % (Auto) 9.8 L, Jim [place] % (Auto) 7.9, Eos % (Auto) 4.0, [...] the [facility] # Fever * Patient developed [...] The daughter is the healthcare power of lining cementer. #History of dementia: On rivastigmine #Dyslipidemia: On statin #Benign essential hypertension: On lisinopril. DVT prophylaxis: * Resume Coumadin today. INR 1.8. Daughter still thinking about that she wants him to continue otherwise. Code status: DNRCCA no intubation * Disposition: Awaiting placement. PT OT on board. Charges/Coding Visit Charges Inpatient E&M: 76571 Subs Hosp L2 09/05/24 1619 Cosigner Signature (if applicable): CC: ~ Signed [facility]06-15-2025 Progress note Author Kathy Wells [facility] Note Date/Time September 04, 2024 3:37 pm [facility] Medical Records Department [address] [place] [address] Progress Note 09/04/24 1412 MR#: [id number] Acct: [id number] Name: ROBY FLORES Rep #:[id number] : 1935 89 From: Kathy Wells MD PCP: Dr. Stas Mora MD Status:AD M IN Location: [place] XS638-0 Subjective Subjective Patient seen and examined. He [...] 78.0 H, Lymph % (Auto) 7.8 L, Jim [place] % (Auto) 7.7, Eos % (Auto) 5.3 [...] The daughter is the healthcare power of lining cementer. * In light of patient's confusion in [...] on board. Charges/Coding Visit Charges Inpatient E&M: 81088 Subs Hosp L2 09/04/24 0944 <Electronically signed by Kathy Wells MD> Kathy Wells MD Cosigner Signature (if applicable): CC: ~ Signed [facility] Work Phone: 1(618) 757-922106-15-2025 Progress note [facility] Medical Records Department [address] [place] [address] Progress Note 09/04/24 1412 MR#: [id number] Acct: [id number] Name: ROBY FLORES Rep #:[id number] : 1935 89 From: Kathy Wells MD PCP: Dr. Stas Mora MD Status:AD M IN Location: [place] WZ947-1 Subjective Subjective Patient seen and examined. He [...] 78.0 H, Lymph % (Auto) 7.8 L, [place] % (Auto) 7.7, Eos % (Auto) 5.3 [...] The daughter is the healthcare power of lining cementer. * In light of patient's confusion in [...] on board. Charges/Coding Visit Charges Inpatient E&M: 74237 [facility] Hosp L2 09/04/24 0331 Kathy Wells MD Cosigner Signature (if applicable): CC: ~ Signed [facility]06-14-2025 Progress note Author Kathy Wells [facility] Note Date/Time September 03, 2024 6:29 pm [facility] Medical Records Department [address] [place] [address] Progress Note 09/03/24 1135 MR#: [id number] Acct: [id number] Name: ROBY FLORES Rep #:[id number] : 1935 89 From: Kathy Wells MD PCP: Dr. Stas Mora MD Status:AD M IN Location: [place] BG374-2 Subjective Subjective Patient seen and examined. He [...] 83.4 H, Lymph % (Auto) 6.7 L, [place] % (Auto) 6.0, Eos % (Auto) 2.8, [...] The daughter is the healthcare power of lining cementer. * In light of patient's confusion in [...] on board. Charges/Coding Visit Charges Inpatient E&M: 46803 Subs Hosp L2 09/03/24 1874 <Electronically signed by Kathy Wells MD> Kathy Wells MD Cosigner Signature (if applicable): CC: ~ Signed [facility] Work Phone: 1(115) 450-405906-14-2025 Progress note [facility] Medical Records Department [address] [place] [address] Progress Note 09/03/24 1135 MR#: [id number] Acct: [id number] Name: ROBY FLORES Rep #:[id number] : 1935 89 From: Kathy Wells MD PCP: Dr. Stas Mora MD Status:AD M IN Location: [place]3 KW321-1 Subjective Subjective Patient seen and examined. He [...] 83.4 H, Lymph % (Auto) 6.7 L, Jim [place] % (Auto) 6.0, Eos % (Auto) 2.8, [...] The daughter is the healthcare power of lining cementer. * In light of patient's confusion in [...] on board. Charges/Coding Visit Charges Inpatient E&M: 06330 Subs Hosp L2 09/03/24 7870 Kathy Wells MD Cosigner Signature (if applicable): CC: ~ Signed [facility]06-14-2025 Consult note Author Spike De La Cruz [facility] Note Date/Time September 03, 2024 3:49 pm [facility] Medical Records Department [address] [place] [address] Pharmacokinetic/Renal -Consult 09/03/24 1548 MR#: [id number] Acct: [id number] Name: ROBY FLORES Rep #:[id number] : 1935 89 From: Spike Maynard [facility] [place] PCP: Dr. Stas Mora MD Status:AD M IN Location: [facility] YL327-1 Consult Antibiotic Management Pharmacy has been consulted [...] Labs: Trough: Vancomycin (09/04/24 at 2130) 09/03/24 6981 <Electronically signed by Spike Angelo [facility]> Date _ Spike De La Cruz [facility] Cosigner Signature (if applicable): Date CC: ~ Signed [facility] Work Phone: 1(107) 378-178606-14-2025 Consult note [facility] Medical Records Department [address] [place] [address] Pharmacokinetic/Renal -Consult 09/03/24 1548 MR#: [id number] Acct: [id number] Name: ROBY FLORES Rep #:[id number] : 1935 89 From: Spike Maynard [facility] [place] PCP: Dr. Stas Mora MD Status:AD M IN Location: [place] [address] Consult Antibiotic Management Pharmacy has been consulted [...] Vancomycin (09/04/24 at 2130) 09/03/24 1549 rowdying [facility]> Date _ Spike De La Cruz [facility] Cosigner Signature (if applicable): Date CC: ~ Signed [facility]06-13-2025 Progress note Author Kathyrachel Wells [facility] Note Date/Time September 02, 2024 6:45 pm [facility] Medical Records Department [address] [facility] [place] [address] Progress Note 09/02/24 1404 MR#: [id number] Acct: [id number] Name: ROBY FLORES Rep #:[id number] : 1935 89 From: Kathy Wells MD PCP: Dr. Stas Mora MD Status:AD M IN Location: [place] [address]-1 Subjective Subjective Patient seen and examined. He [...] (Auto) 87.9 H, Lymph %(Auto) 3.8 L, Jim [place] % (Auto) 4.8, Eos % (Auto) 2.2, [...] evidence of intracranial bleed. * [facility] fluids. * [...] The daughter is the healthcare power of lining cementer. * In light of patient's confusion in [...] intubation * Charges/Coding Visit Charges Inpatient E&M: 27963 Subs Hosp L2 09/02/24 9195 <Electronically signed by Kathy Wells MD> Kathy Wells MD Cosigner Signature (if applicable): CC: ~ Signed [facility] Work Phone: 1(222) 452-817106-13-2025 Progress note [facility] Medical Records Department [address] [place] [address] Progress Note 09/02/24 1404 MR#: [id number] Acct: [id number] Name: ROBY FLORES Rep #:[id number] : 1935 89 From: Kathy Wells MD PCP: Dr. Stas Mora MD Status:AD M IN Location: [place]3 QL574-4 Subjective Subjective Patient seen and examined. He [...] (Auto) 87.9 H, Lymph %(Auto) 3.8 L, Jim [place] % (Auto) 4.8, Eos % (Auto) 2.2, [...] evidence of intracranial bleed. * [facility] with IV fluids. * [...] The daughter is the healthcare power of lining cementer. * In light of patient's confusion in [...] intubation * Charges/Coding Visit Charges Inpatient E&M: 30497 Subs Hosp L2 09/02/24 184 Kathy Wells MD Cosigner Signature (if applicable): CC: ~ Signed [facility]06-13-2025 Evaluation note* Diagnosis Onset Date Resolution Status Admit Date Adult failure to thrive acute [facility] 2024 12:49pm Chronic anticoagulation acute [facility] 2024 12:49pm Contusion of hip acute August 12:49pm Fall acute September 02 12:49pm History of atrial fibrillation acute September 02, 2024 12:49pm History of dementia acute September 02, 2024 12:49pm History of TIAs acute August 12:49pm Unable to ambulate acute August 212024 12:49pm [facility] Work Phone: 1(435) 999-789906-13-2025 Evaluation note* Diagnosis Onset Date Resolution Status Admit Date Chronic anticoagulation acute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 Care Providers Provider Role Specialty Phone number Stas Mora MD Referring Family Medicine [phone] Roby Flores is a 88 year old [...] No Known Allergies Indication for Warfarin: terminal carman current use of anticoagulant Paroxysmal atrial fibrillation [...] Pharmacy Anticoagulation Clinic Pharmacy Anticoagulation Clinic Pager: [phone]. [facility]08-28-2024 Miscellaneous Notes* Telephone Encounter - Coretta Jalloh RPh - 11/18/2023 4:30 PM EDT [facility] Anticoagulation Episode Summary Anticoagulation Care Providers Provider Role Specialty Phone number Stas Mora MD Referring Family Medicine [phone] Roby Flores is a 88 year old [...] ALLERGIES No Known Allergies Indication for Warfarin: [facility] current use of anticoagulant Paroxysmal atrial fibrillation [...] Pharmacy Anticoagulation Clinic Pharmacy Anticoagulation Clinic Pager: [phone]. documented in this encounterChillic[facility]08-[facility] Telephone encounter Note * Telephone Encounter - Elvis Kearney APRN.CNP - 11/16/2023 9:39 AM EDT The following approved medication requests have been transmitted electronically. Requested Prescriptions Pending Prescriptions Disp Refills warfarin (COUMADIN) 1 mg tablet 30 tablet 5 Sig: Take 1 tablet by mouth once daily. Elvis Kearney APRN.CNP [facility]08-26-2024 Miscellaneous Notes* Telephone Encounter - Elvis [...] 16, 2023 9:00 AM documented in this encounterChillicothe Hospital08-26-2024 Telephone encounter Note * Telephone Encounter [...] Shahid MA November 16, 2023 9:06 AM [facility]08-26-2024 Telephone encounter Note* Telephone Encounter - [...] Keke Rinaldi November 16, 2023 9:00 AM [facility]07-24-2024 Telephone encounter Note* Telephone Encounter - Coretta Jalloh RPh - 10/14/2023 4:21 PM EDT [facility] Anticoagulation Episode Summary Anticoagulation Care Providers Provider Role Specialty Phone number Stas Mora MD Referring Family Medicine [phone] Roby Flores is a 88 year old [...] ALLERGIES No Known Allergies Indication for Warfarin: [facility] current use of anticoagulant Paroxysmal atrial fibrillation [...] Anticoagulation Clinic Pharmacy Anticoagulation Clinic Pager: [phone]. [facility]07-24-2024 Miscellaneous Notes* Telephone Encounter - Coretta Jalloh RPh - 10/14/2023 4:21 PM EDT [facility] Anticoagulation Episode Summary Anticoagulation Care Providers Provider Role Specialty Phone number Stas Mora MD Referring Family Medicine [phone] Roby Flores is a 88 year old [...] ALLERGIES No Known Allergies Indication for Warfarin: [facility] current use of anticoagulant Paroxysmal atrial fibrillation [...] Pharmacy Anticoagulation Clinic Pharmacy Anticoagulation Clinic Pager: [phone]. documented in this encounterChillic[facility] Hospital06-26-2024 Telephone encounter Note * Telephone Encounter - Colleen Sommer RPh - 09/16/2023 11:15 AM EDT [facility] Amb[facility]acy Anticoagulation Clinic Anticoagulation Episode Summary Anticoagulation Care Providers Provider Role Specialty Phone number Stas Mora MD Referring Family Medicine [phone] Roby Flores is a 88 year old [...] Pharmacy Anticoagulation Clinic Pharmacy Anticoagulation Clinic Pager: [phone]. [facility]06-26-2024 Miscellaneous Notes* Telephone Encounter - Kemal Enrique Macias - 09/16/2023 11:15 AM EDT [facility] Amb[facility]acy [facility]tico[facility] Anticoagulation Episode Summary Anticoagulation Care Providers Provider Role Specialty Phone number Stas Mora MD Referring Family Medicine [phone] Roby Flores is a 88 year old [...] Pharmacy Anticoagulation Clinic Pharmacy Anticoagulation Clinic Pager: [phone]. documented in this encounterChillicothe Hospital06-25-2024 Instructions* Patient Instructions* Rosie Cruz MA - 09/15/2023 8:48 AM EDT Starting Lasix (Furosemide) 20 mg once daily as needed. You can use the medication on days where swelling is increased. Elevate legs through out the day to help with swelling. Decrease sodium in diet. documented in this encounterChillicothe Hospital06-25-2024 History of Present illness Narrative* Stas [...] Coronary atherosclerosis of unspecified type of vessel, picayune or graft Coronary artery disease Other and [...] Histories independently gathered by the clinical support teacher and the remaining scribed note accurately describes [...] AM. Rosie Cruz MA documented in this encounterChillicothe Hospital06-24-2024 Telephone encounter Note * Telephone Encounter [...] difficulty breathing Protocols used: Leg Swelling and [id number] [facility]06-24-2024 Miscellaneous Notes* Telephone Encounter - Marian [...] difficulty breathing Protocols used: Leg Swelling and [id number] * Telephone Encounter - Elana Valdes RN - 09/14/2023 2:52 PM EDT Called and left a voicemail for the Patient and on the Pts girlfriends phone to have the Pt call back and ask for a nurse to receive the providers message. We need more information about his bilateral leg swelling that he was scheduled for tomorrow. Elana Valdes RN documented in this encounterChillicothe Hospital06-24-2024 Telephone encounter Note * Telephone Encounter [...] was scheduled for tomorrow. Elana Valdes RN [facility]06-12-2024 Telephone encounter Note* Telephone Encounter - Coretta Jalloh [facility] - 09/02/2023 3:08 PM EDT [facility] Amb[facility] Antico[facility] Clinic Anticoagulation Episode Summary Anticoagulation Care Providers Provider Role Specialty Phone number Stas Mora MD Referring Family Medicine [phone] Roby Flores is a 88 year old [...] ALLERGIES No Known Allergies Indication for Warfarin: [facility] current use of anticoagulant Paroxysmal atrial fibrillation [...] Pharmacy Anticoagulation Clinic Pharmacy Anticoagulation Clinic Pager: [phone]. [facility]06-12-2024 Miscellaneous Notes* Telephone Encounter - Coretta Jalloh RPh - 09/02/2023 3:08 PM EDT [facility] Anticoagulation Episode Summary Anticoagulation Care Providers Provider Role Specialty Phone number Stas Mora MD Referring Family Medicine [phone] Roby Flores is a 88 year old [...] No Known Allergies Indication for Warfarin: terminal carman current use of anticoagulant Paroxysmal atrial fibrillation [...] Pharmacy Anticoagulation Clinic Pharmacy Anticoagulation Clinic Pager: [phone]. documented in this encounterChillicothe Hospital06-05-2024 Telephone encounter Note * Telephone Encounter - Coretta Jalloh RPh - 08/26/2023 5:03 PM EDT [facility] Anticoagulation Episode Summary Anticoagulation Care Providers Provider Role Specialty Phone number Stas Mora MD Referring Family Medicine [phone] Roby Flores is a 88 year old [...] No Known Allergies Indication for Warfarin: terminal carman current use of anticoagulant Paroxysmal atrial fibrillation [...] Pharmacy Anticoagulation Clinic Pharmacy Anticoagulation Clinic Pager: [phone]. [facility]06-05-2024 Miscellaneous Notes* Telephone Encounter - Coretta Jalloh RPh - 08/26/2023 5:03 PM EDT [facility] Anticoagulation Clinic Anticoagulation Episode Summary Anticoagulation Care Providers Provider Role Specialty Phone number Stas Mora MD Referring Family Medicine [phone] Roby Flores is a 88 year old [...] No Known Allergies Indication for Warfarin: terminal carman current use of anticoagulant Paroxysmal atrial fibrillation [...] Pharmacy Anticoagulation Clinic Pharmacy Anticoagulation Clinic Pager: [phone]. documented in this encounterChillicothe Hospital05-29-2024 Telephone encounter Note * Telephone Encounter - Coretta Jalloh RPh - 08/19/2023 5:09 PM EDT [facility] Antico[facility] Anticoagulation Episode Summary Anticoagulation Care Providers Provider Role Specialty Phone number Stas Mora MD Referring Family Medicine [phone] Roby Flores is a 88 year old [...] Pharmacy Anticoagulation Clinic Pharmacy Anticoagulation Clinic Pager: [phone]. [facility]05-29-2024 Miscellaneous Notes* Telephone Encounter - Coretta Jalloh, [facility] - 08/19/2023 5:09 PM EDT [facility] Ambulatory [facility]acy Anticoagulation Clinic Anticoagulation Episode Summary Anticoagulation Care Providers Provider Role Specialty Phone number Stas Mora MD Referring Family Medicine [phone] Roby Flores is a 88 year old [...] Pharmacy Anticoagulation Clinic Pharmacy Anticoagulation Clinic Pager: [phone]. documented in this encounterChillicothe Hospital05-24-2024 History of Present illness Narrative* Stas [...] thinks he is being sued by a islam and thathe was given a letter about it, doesn't know who the entry level software developer is or where the islam is. states this is not true. He [...] Coronary atherosclerosis of unspecified type of vessel, picayune or graft Coronary artery disease Other and [...] Histories independently gathered by the clinical support teacher and the remaining scribed note accurately describes [...] AM. Marta Palacio MA documented in this encounterChillicothe Hospital05-22-2024 Telephone encounter Note * Telephone Encounter - Coretta Jalloh, [facility] - 08/12/2023 4:27 PM EDT [facility]acy Anticoagulation Clinic Anticoagulation Episode Summary Anticoagulation Care Providers Provider Role Specialty Phone number Stas Mora MD Referring Family Medicine [phone] Roby Flores is a 87 year old [...] ALLERGIES No Known Allergies Indication for Warfarin: [facility] current use of anticoagulant Paroxysmal atrial fibrillation [...] Pharmacy Anticoagulation Clinic Pharmacy Anticoagulation Clinic Pager: [phone]. [facility]05-22-2024 Miscellaneous Notes* Telephone Encounter - Coretta Jalloh RPh - 08/12/2023 4:27 PM EDT [facility] Antico[facility] Anticoagulation Episode Summary Anticoagulation Care Providers Provider Role Specialty Phone number Stas Mora MD Referring Family Medicine [phone] Roby Flores is a 87 year old [...] No Known Allergies Indication for Warfarin: terminal carman current use of anticoagulant Paroxysmal atrial fibrillation [...] Pharmacy Anticoagulation Clinic Pharmacy Anticoagulation Clinic Pager: [phone]. documented in this encounterChillicothe Hospital05-15-2024 Telephone encounter Note * Telephone Encounter - Coretta Jalloh RPh - 08/05/2023 4:41 PM EDT [facility] Anticoagulation Clinic Anticoagulation Episode Summary Anticoagulation Care Providers Provider Role Specialty Phone number Stas Mora MD Referring Family Medicine [phone] Roby Flores is a 87 year old [...] ALLERGIES No Known Allergies Indication for Warfarin: [facility] current use of anticoagulant Paroxysmal atrial fibrillation [...] Pharmacy Anticoagulation Clinic Pharmacy Anticoagulation Clinic Pager: [phone]. [facility]05-15-2024 Miscellaneous Notes* Telephone Encounter - Coretta Jalloh RPh - 08/05/2023 4:41 PM EDT [facility] Antico[facility] Anticoagulation Episode Summary Anticoagulation Care Providers Provider Role Specialty Phone number Stas Mora MD Referring Family Medicine [phone] Roby Flores is a 87 year old [...] No Known Allergies Indication for Warfarin: terminal carman current use of anticoagulant Paroxysmal atrial fibrillation [...] Pharmacy Anticoagulation Clinic Pharmacy Anticoagulation Clinic Pager: [phone]. documented in this encounterChillicothe Hospital05-08-2024 Telephone encounter Note * Telephone Encounter - AltafElis kurtzElena, [facility] - 07/29/2023 3:21 PM EDT [facility] Anticoagulation Clinic Anticoagulation Episode Summary Anticoagulation Care Providers Provider Role Specialty Phone number Stas Mora MD Referring Family Medicine [phone] Roby Flores is a 87 year old [...] No Known Allergies Indication for Warfarin: terminal carman current use of anticoagulant Paroxysmal atrial fibrillation [...] Pharmacy Anticoagulation Clinic Pharmacy Anticoagulation Clinic Pager: [phone]. [facility]05-08-2024 Miscellaneous Notes* Telephone Encounter - Elena Lopez RPh - 07/29/2023 3:21 PM EDT [facility]acy Anticoagulation Clinic Anticoagulation Episode Summary Anticoagulation Care Providers Provider Role Specialty Phone number Stas Mora MD Referring Family Medicine [phone] Roby Flores is a 87 year old [...] No Known Allergies Indication for Warfarin: terminal carman current use of anticoagulant Paroxysmal atrial fibrillation [...] Pharmacy Anticoagulation Clinic Pharmacy Anticoagulation Clinic Pager: [phone]. documented in this encounterChillicothe Hospital05-01-2024 Telephone encounter Note * Telephone Encounter - Coretta Jalloh RPh - 07/22/2023 4:40 PM EDT [facility]acy Anticoagulation Clinic Anticoagulation Episode Summary Anticoagulation Care Providers Provider Role Specialty Phone number Stas Mora MD Referring Family Medicine [phone] Roby E Flores is a 87 year [...] No Known Allergies Indication for Warfarin: terminal carman current use of anticoagulant Paroxysmal atrial fibrillation [...] Pharmacy Anticoagulation Clinic Pharmacy Anticoagulation Clinic Pager: [phone]. [facility]05-01-2024 Miscellaneous Notes* Telephone Encounter - Coretta Jalloh, [facility] - 07/22/2023 4:40 PM EDT [facility] Anticoagulation Clinic Anticoagulation Episode Summary Anticoagulation Care Providers Provider Role Specialty Phone number Stas Mora MD Referring Family Medicine [phone] Roby Flores is a 87 year old [...] ALLERGIES No Known Allergies Indication for Warfarin: [facility] current use of anticoagulant Paroxysmal atrial fibrillation [...] Pharmacy Anticoagulation Clinic Pharmacy Anticoagulation Clinic Pager: [phone]. documented in this encounterChillicothe Hospital04-24-2024 Telephone encounter Note * Telephone Encounter - Coretta Jalloh RPh - 07/15/2023 3:18 PM EDT [facility] Anticoagulation Clinic Anticoagulation Episode Summary Anticoagulation Care Providers Provider Role Specialty Phone number Stas Mora MD Referring Family Medicine [phone] Roby Flores is a 87 year old [...] ALLERGIES No Known Allergies Indication for Warfarin: [facility] current use of anticoagulant Paroxysmal atrial fibrillation [...] Pharmacy Anticoagulation Clinic Pharmacy Anticoagulation Clinic Pager: [phone]. [facility]04-24-[facility]24 Miscellaneous Notes* Telephone Encounter - Coretta Jalloh RPh - 07/15/2023 3:18 PM EDT [facility] Amb[facility]acy Anticoagulation Clinic Anticoagulation Episode Summary Anticoagulation Care Providers Provider Role Specialty Phone number Stas Mora MD Referring Family Medicine [phone] Roby Flores is a 87 year old [...] ALLERGIES No Known Allergies Indication for Warfarin: [facility] current use of anticoagulant Paroxysmal atrial fibrillation [...] Pharmacy Anticoagulation Clinic Pharmacy Anticoagulation Clinic Pager: [phone]. documented in this encounterChillicothe Hospital04-17-2024 Miscellaneous Notes* Telephone Encounter - Coretta Jalloh RPh - 07/08/2023 4:36 PM EDT [facility] Anticoagulation Clinic Anticoagulation Episode Summary Anticoagulation Care Providers Provider Role Specialty Phone number Stas Mora MD Referring Family Medicine [phone] Roby Flores is a 87 year old [...] No Known Allergies Indication for Warfarin: terminal carman current use of anticoagulant Paroxysmal atrial fibrillation [...] Pharmacy Anticoagulation Clinic Pharmacy Anticoagulation Clinic Pager: [phone]. documented in this encounterChillic[facility] Hospital04-10-2024 Miscellaneous Notes* Telephone Encounter - Coretta Jalloh RPh - 07/01/2023 5:20 PM EDT [facility] Amb[facility]acy Anticoagulation Clinic Anticoagulation Episode Summary Anticoagulation Care Providers Provider Role Specialty Phone number Stas Mora MD Referring Family Medicine [phone] Roby Flores is a 87 year old [...] No Known Allergies Indication for Warfarin: terminal carman current use of anticoagulant Paroxysmal atrial fibrillation [...] Pharmacy Anticoagulation Clinic Pharmacy Anticoagulation Clinic Pager: [phone]. documented in this encounterChillic[facility] Hospital04-04-2024 Telephone encounter Note * Telephone Encounter - Adrian (Softwood FallerElana Berry - 06/25/2023 5:14 PM EDT Images [...] remains on Remote TM list. Elana Campbell ([facility]) [facility]04-04-2024 Miscellaneous Notes* Telephone Encounter - Adrian ([facility] Faller)Elana - 06/25/2023 5:14 PM EDT Images from [...] remains on Remote TM list. Elana Campbell ([facility]) * Telephone Encounter - Stas Mora MD - 06/25/2023 4:44 PM EDT It looks like my office became involved because the on-call doctor was called with his elevated INR. I would prefer he stay with the pharmacy for his routine monitoring. Stas Mora MD * Telephone Encounter - Adrian ([facility] Faller)Elana - 06/25/2023 4:03 PM EDT Pharm Phone [...] this time Please advise. Elana Campbell CPhT ([facility]) Pharmacy Anticoagulation Clinic documented in this encounterChillicothe Hospital04-04-2024 Telephone encounter Note * Telephone Encounter - Stas Mora MD - 06/25/2023 4:44 PM EDT It looks like my office became involved because the on-call doctor was called with his elevated INR. I would prefer he stay with the pharmacy for his routine monitoring. Stas Mora MD [facility]04-04-2024 Telephone encounter Note* Telephone Encounter - Adrian HuangSoftwood FallerElana Berry - 06/25/2023 4:03 PM EDT Pharm [...] this time Please advise. Elana Campbell CPhT ([facility]) Pharmacy Anticoagulation Clinic [facility]04-03-2024 Miscellaneous Notes* Telephone Encounter - Jason [...] with VKA drugs, such as warfarin, the [place] [employer] 2012 Guideline recommends [...] Chest 2012, 141:7S-47S Avel RA, et al. [facility] 2017, 70: 252-289 Confirmed that pt is taking 1 mg daily. No changes to diet, medications, missed or extra doses, etc. Keke Tsang MA documented in this encounterChillicothe Hospital03-22-2024 Miscellaneous Notes* Telephone Encounter - Marta [...] 06/08/23 Additional Clinical Information or narrative: no oRsie Cruz Ma documented in this encounterChillicothe Hospital03-18-2024 Miscellaneous Notes* Telephone Encounter - Keke [...] Information or narrative: no documented in this encounterChillicothe Hospital03-15-2024 Miscellaneous Notes* Telephone Encounter - Halina [...] went over notes below from Jenna Fitzpatrick [employer] CLERK. She said no change in his diet, [...] 6.9. Jenna Fitzpatrick APRN.CNP documented in this encounterChillicothe Hospital03-15-2024 Miscellaneous Notes* Telephone Encounter - Marta [...] conference call with me. documented in this encounterChillicothe Hospital03-15-2024 Miscellaneous Notes* Telephone Encounter - Marta [...] if patient calls them. documented in this encounterChillicothe Hospital03-14-2024 Miscellaneous Notes* Telephone Encounter - Hortencia Winston RN - 06/04/2023 8:[address] Talampas has left messages for the patient to call back regarding a critical lab. documented in this encounterChillicothe Hospital03-14-2024 Miscellaneous Notes* Telephone Encounter - Minda [...] you. Jenna Fitzpatrick APRN.SHEMAR documented in this encounterChillicothe Hospital03-13-2024 Miscellaneous Notes* Telephone Encounter - Coretta Jalloh RPh - 06/03/2023 3:22 PM EDT [facility] Amb[facility] Anticoagulation Clinic Anticoagulation Episode Summary Anticoagulation Care Providers Provider Role Specialty Phone number Stas Mora MD Referring Family Medicine [phone] Roby E Flores is a 87 year [...] No Known Allergies Indication for Warfarin: terminal carman current use of anticoagulant Paroxysmal atrial fibrillation [...] Pharmacy Anticoagulation Clinic Pharmacy Anticoagulation Clinic Pager: [phone]. documented in this encounterChillicothe Hospital03-11-2024 History of Present illness Narrative* Stas [...] Coronary atherosclerosis of unspecified type of vessel, picayune or graft Coronary artery disease Other and [...] unspecified vessel or lesion type, unspecified whether picayune or transplanted heart - ICD9: 414.00, ICD10: [...] Histories independently gathered by the clinical support teacher and the remaining scribed note accurately describes my personal service to the patient. Medical Decision Making: Problems: Moderate: 2+ stable chronic illnesses Data: Unique test(s) ordered: 3+ Risk: Moderate: Drug management Medical Decision Making Level: 4 - Moderate Stsa Mora MD The documentation for this note was completed by Marta Palacio MA acting as scribe for Stas Mora MD. June 01, 2023 3:10 PM. Marta Palacio MA documented in this encounterChillicothe Hospital03-06-2024 Miscellaneous Notes* Telephone Encounter - Coretta Jalloh, [facility] - 05/27/2023 2:23 PM EST [facility] Anticoagulation Clinic Anticoagulation Episode Summary Anticoagulation Care Providers Provider Role Specialty Phone number Stas Mora MD Referring [facility] [phone] Robykaran Flores is a 87 year old year old male patient being evaluated today for a [facility] Pharmacy Anticoagulation Clinic Anticoagulation Episode Summary Anticoagulation Care Providers Provider Role Specialty Phone number Stas Mora MD Referring Family [facility] [phone] Roby Flores is a 87 year old [...] ALLERGIES No Known Allergies Indication for Warfarin: [facility] current use of anticoagulant Paroxysmal atrial fibrillation [...] Pharmacy Anticoagulation Clinic Pharmacy Anticoagulation Clinic Pager: [phone]. documented in this encounterChillicothe Hospital02-28-2024 Miscellaneous Notes* Telephone Encounter - Coretta Jalloh RPh - 05/20/2023 2:36 PM EST [facility] Anticoagulation Episode Summary Anticoagulation Care Providers Provider Role Specialty Phone number Stas Mora MD Referring Family Medicine [phone] Roby Flores is a 87 year old [...] No Known Allergies Indication for Warfarin: terminal [facility]man current use of anticoagulant Paroxysmal atrial fibrillation [...] Pharmacy Anticoagulation Clinic Pharmacy Anticoagulation Clinic Pager: [phone]. documented in this encounterChillicothe Hospital02-21-2024 Miscellaneous Notes* Telephone Encounter - Senia Phillips RPh - 05/13/2023 4:06 PM EST [facility] Anticoagulation Episode Summary Anticoagulation Care Providers Provider Role Specialty Phone number Stas Mora MD Referring Family Medicine [phone] Roby Flores is a 87 year old [...] No Known Allergies Indication for Warfarin: terminal carman current use of anticoagulant Paroxysmal atrial fibrillation [...] Pharmacy Anticoagulation Clinic Pharmacy Anticoagulation Clinic Pager: [phone]. documented in this encounterChillic[facility] Hospital02-14-2024 Miscellaneous Notes* Telephone Encounter - Coretta Jalloh RPh - 05/06/2023 3:14 PM EST [facility]tico[facility] Clinic Anticoagulation Episode Summary Anticoagulation Care Providers Provider Role Specialty Phone number Stas Mora MD Referring Family Medicine [phone] Roby Flores is a 87 year old [...] ALLERGIES No Known Allergies Indication for Warfarin: [facility] current use of anticoagulant Paroxysmal atrial fibrillation [...] INR check scheduled on 05/13/2023 JENNIFER Jalloh [facility] Clinical Pharmacist, Pharmacy Anticoagulation Clinic Pharmacy Anticoagulation Clinic Pager: [phone]. documented in this encounterChillicothe Hospital02-07-2024 Miscellaneous Notes* Telephone Encounter - Coretta Jalloh RPh - 04/29/2023 4:00 PM EST [facility] Anticoagulation Episode Summary Anticoagulation Care Providers Provider Role Specialty Phone number Stas Mora MD Referring Family Medicine [phone] Roby Flores is a 87 year old [...] ALLERGIES No Known Allergies Indication for Warfarin: [facility] current use of anticoagulant Paroxysmal atrial fibrillation [...] Pharmacy Anticoagulation Clinic Pharmacy Anticoagulation Clinic Pager: [phone]. documented in this encounterChillicothe Hospital12-01-2023 Miscellaneous Notes* Telephone Encounter - Elise Paredes RP - 02/20/2023 3:37 PM EST [facility] Anticoagulation Episode Summary Anticoagulation Care Providers Provider Role Specialty Phone number Stas Mora MD Referring Family Medicine [phone] Roby Flores is a 87 year old [...] ALLERGIES No Known Allergies Indication for Warfarin: [facility] current use of anticoagulant Paroxysmal atrial fibrillation [...] Patient denies need for refills. Elise Paredes [facility] Clinical Pharmacist, Pharmacy Anticoagulation Clinic Pharmacy Anticoagulation Clinic Pager: [phone]. documented in this encounterChillicothe Hospital11-28-2023 Miscellaneous Notes* Telephone Encounter - Franca [...] evaluation Stas Mora MD documented in this encounterChillicothe Hospital11-28-2023 History of Present illness Narrative* Janelle [...] 17, 2023 7:43 AM documented in this encounterChillicothe Hospital11-27-2023 History of Present illness Narrative* Stas Mora MD - 02/16/2023 2:00 PM EST Chief Complaint Patient presents with: ED Follow-up HPI Roby Flores is a 87 year old male who presents here today for ER Follow Up.. Pt went to the [facility] ER on 02/10/23 with [...] Recheck in 1 week. Below copied from Change[employer]: Chief Complaint: Fatigue Informant: patient Onset/Context/Timing Onset: [...] any urinary complaints. Patient denies any headaches. [facility] Narrative Medical decision making narrative: Differential diagnosis [...] Coronary atherosclerosis of unspecified type of vessel, picayune or graft Coronary artery disease Other and [...] Pneumococcal Vaccine: 65+ Completed Data reviewed [facility] ER reports 02/10/23 ASSESSMENT/PLAN: [...] Histories independently gathered by the clinical support teacher and the remaining scribed note accurately describes [...] PM. Marta Palacio Ma documented in this encounterChillicothe Hospital11-24-2023 Miscellaneous Notes* Telephone Encounter - Elise Paredes, [facility] - 02/13/2023 3:56 PM EST [facility] Anticoagulation Episode Summary Anticoagulation Care Providers Provider Role Specialty Phone number Stas Mora MD Referring Family Medicine [phone] Roby Flores is a 87 year old [...] ALLERGIES No Known Allergies Indication for Warfarin: [facility] current use of anticoagulant Paroxysmal atrial fibrillation [...] INR check scheduled on 02/20/2023 Elise Paredes [facility] Clinical Pharmacist, Pharmacy Anticoagulation Clinic Pharmacy Anticoagulation Clinic Pager: [phone]. documented in this encounterChillicothe Hospital11-17-2023 Miscellaneous Notes* Telephone Encounter - Senia Phillips RPh - 02/06/2023 4:28 PM EST [facility] Anticoagulation Episode Summary Anticoagulation Care Providers Provider Role Specialty Phone number Stas Mora MD Referring Family Medicine [phone] Roby Flores is a 87 year old [...] No Known Allergies Indication for Warfarin: [facility] current use of anticoagulant Paroxysmal atrial fibrillation [...] Pharmacy Anticoagulation Clinic Pharmacy Anticoagulation Clinic Pager: [phone]. documented in this encounterChillicothe Hospital10-06-2023 Miscellaneous Notes* Telephone Encounter - Senia Phillips RPh - 12/26/2022 3:04 PM EDT [facility] Anticoagulation Episode Summary Anticoagulation Care Providers Provider Role Specialty Phone number Stas Mora MD Referring Family Medicine [phone] Roby Flores is a 87 year old [...] No Known Allergies Indication for Warfarin: terminal [facility] current use of anticoagulant Paroxysmal atrial fibrillation (hcc) Anticoagulation Episode Summary Current INR goal: 2.0-3.0 Assessment: INR result of 2.5 is therapeutic Plan: Current Warfarin Dosing As of 12/26/2022 Full warfarin instructions: 2.5 mg every day Sent Ygle message Advised patient to continue current weekly dose as noted above Next lab INR check scheduled on 01/09/2023 Senia Phillips RPh Clinical Pharmacist, Pharmacy Anticoagulation Clinic Pharmacy Anticoagulation Clinic Pager: [phone]. documented in this encounterChillicothe Hospital09-29-2023 Miscellaneous Notes* Telephone Encounter - Senia Phillips RPh - 12/19/2022 4:30 PM EDT [facility] Anticoagulation Episode Summary Anticoagulation Care Providers Provider Role Specialty Phone number Stas Mora MD Referring Family Medicine [phone] Roby Flores is a 87 year old [...] No Known Allergies Indication for Warfarin: terminal [facility] current use of anticoagulant Paroxysmal atrial fibrillation (hcc) Anticoagulation Episode Summary Current INR goal: 2.0-3.0 Assessment: INR result of 2.0 is therapeutic Plan: Current Warfarin Dosing As of 12/19/2022 Full warfarin instructions: 2.5 mg every day Sent Ygle message Advised patient to continue current weekly dose as noted above Next lab INR check scheduled on 01/02/2023 Senia Phillips RPh Clinical Pharmacist, Pharmacy Anticoagulation Clinic Pharmacy Anticoagulation Clinic Pager: [phone]. documented in this encounterChillicothe Hospital09-22-2023 Miscellaneous Notes* Telephone Encounter - Senia Phillips RP - 12/12/2022 4:01 PM EDT [facility] Anticoagulation Episode Summary Anticoagulation Care Providers Provider Role Specialty Phone number Stas Mora MD Referring Family Medicine [phone] Roby Flores is a 87 year old [...] No Known Allergies Indication for Warfarin: terminal [facility] current use of anticoagulant Paroxysmal atrial fibrillation [...] Pharmacy Anticoagulation Clinic Pharmacy Anticoagulation Clinic Pager: [phone]. documented in this encounterChillicothe Hospital09-01-2023 Miscellaneous Notes* Telephone Encounter - Jeimy Duong RPh - 11/21/2022 2:38 PM EDT [facility] Anticoagulation Episode Summary Anticoagulation Care Providers Provider Role Specialty Phone number Stas Mora MD Referring Family Medicine [phone] Roby Flores is a 87 year old [...] Pharmacy Anticoagulation Clinic Pharmacy Anticoagulation Clinic Pager: [phone]. documented in this encounterChillicothe Hospital08-28-2023 Hospital Discharge instructions Patient Education 11/17/2022 [...] Wound changes colors Numbness around the wound 1157-4569 [employer]. [address] [place] [address], [place] [address]. All rights reserved. This information is not [...] the ears or bruising around the eyes 3451-7[address] [employer]. [address] [place] [address]. All rights reserved. This information is not intended as a substitute for professional medical care. Always follow yourhealthcare professional's instructions. Follow Up Care 11/17/2022 15:05:08 With:Call Physician Referral Address:Unknown When:2-4 days [facility] 08-28-2023 Note Discharge Instructions Thank you for allowing [facility] to assist you with your healthcare needs. [...] Wound changes colors Numbness around the wound 5816-7377 [employer]. [address] [place] [address]. All rights reserved. This information is not [...] the ears or bruising around the eyes [phone] [employer]. [address] [place] [address], [place] [address]. All rights reserved. This information is not intended as a substitute for professional medical care. Always follow yourhealthcare professional's instructions. Additional Information VACCINATE! IT SAVES LIVES! Members of the community who have not yet received the COVID-19 vaccine and would like to receive it can visit one of [facility] vaccine clinics. There are many vaccine clinic locations within the [facility]. For locations and available times, please visit [email or web address] It is important to note that some COVID mobile vaccine clinics are held outdoors and may be canceled in rainy or stormy conditions. To learn more about pediatric vaccinations (ages 5-11), we invite you to visit the [facility] webpage. [email or web address]/[email or web address] [email or web address].htmlTo learn more about the COVID-19 vaccine, we invite you to visit the CDC website for a list of frequently asked questions. https://www.cdc.gov/coronavirus/2019-ncov/vaccines/faq.html [facility] Patient Portal Access Instructions: Stay connected with your healthcare team and access your personal medical information anytime with the [facility] Patient Portal. If you would like a full copy of your medical records please contact the [facility] Medical Records Department Thursday through Thursday between 8a.m. and 4:30p.m. Please follow the directions below to access the portal: 1.Access the email account you provided upon registration to the hospital.2.Look for an invitation email from [facility].3.Open the email and access the invitation link: Accept Invitation to [facility])4.Fill in the required العلي to create your account. Sign into [email or web address] with your username and password that you [...] you will allow to register on the [facility] [employer] Patient Portal for access to your information. You can also access the [facility] Patient Portal on the [employer]. Simply click on "Health Records" under "HealthData" and then click on the [employer] logo. HOW TO SAFELY DISPOSE OF PRESCRIPTION [...] Call your local pharmacy or go to [email or web address] to find one close to you.3.Make use of household items: Use cat litter or old coffee grounds to dispose medications if other options arenot available. Mix your drugs with these household products, seal them in an airtight container andthrow it into the garbage. Call [facility]: [phone] to be sure your drugs can be [...] aware that I should contact my doctor. Patient/Occupational Health Nurse Manager Signature: Date/Time: Relationship to Patient: Witness Name/Signature: Date/Time: [facility]08-28-2023 Note ORIGINAL EXAMINATION: CT OF THE HEAD [...] Sign Date: 11/17/2022 4:26:20 PM Ordering Provider: [facility]08-18-2023 Miscellaneous Notes* Telephone Encounter - Senia Phillips RPh - 11/07/2022 3:22 PM EDT [facility] Anticoagulation Episode Summary Anticoagulation Care Providers Provider Role Specialty Phone number Stas Mora MD Referring Family Medicine [phone] Roby Flores is a 87 year old [...] No Known Allergies Indication for Warfarin: terminal [facility] current use of anticoagulant Paroxysmal atrial fibrillation (hcc) Anticoagulation Episode Summary Current INR goal: 2.0-3.0 Assessment: INR result of 2.2 is therapeutic Plan: Current Warfarin Dosing As of 11/07/2022 Full warfarin instructions: 2.5 mg every day Sent Ygle message Advised patient to continue current weekly dose as noted above Next lab INR check scheduled on 11/21/2022 Senia Phillips RPh Clinical Pharmacist, Pharmacy Anticoagulation Clinic Pharmacy Anticoagulation Clinic Pager: [phone]. documented in this encounterChillicothe Hospital08-11-2023 Miscellaneous Notes* Telephone Encounter - Senia Phillips RPh - 10/31/2022 2:29 PM EDT Patient due to test INR today. Will continue to monitor for results. Senia Phillips RPh documented in this encounterChillicothe Hospital08-04-2023 Miscellaneous Notes* Telephone Encounter - Senia Phillips RPh - 10/24/2022 3:13 PM EDT [facility] Anticoagulation Episode Summary Anticoagulation Care Providers Provider Role Specialty Phone number Stas Mora MD Referring Family Medicine [phone] Roby Flores is a 87 year old [...] ALLERGIES No Known Allergies Indication for Warfarin: [facility] current use of anticoagulant Paroxysmal atrial fibrillation (hcc) Anticoagulation Episode Summary Current INR goal: 2.0-3.0 Assessment: INR result of 2.5 is therapeutic Plan: Current Warfarin Dosing As of 10/24/2022 Full warfarin instructions: 2.5 mg every day Sent [employer] message Advised patient to decrease total weekly regimen to better reflect overall dose given past few weeks Next lab INR check scheduled on 10/31/2022 Senia Phillips riya Clinical Pharmacist, Pharmacy Anticoagulation Clinic Pharmacy Anticoagulation Clinic Pager: [phone]. documented in this encounterChillicothe Hospital07-28-2023 Miscellaneous Notes* Telephone Encounter - Jason [...] Anticoagulation TE call from today by [facility]. They spoke with pt at [phone] and gave pt instructions on what to do. Halina Castelan RN documented in this encounterChillicothe Hospital07-28-2023 Miscellaneous Notes* Telephone Encounter - Yomi Wills RPh - 10/17/2022 3:43 PM EDT [facility] Anticoagulation Episode Summary Anticoagulation Care Providers Provider Role Specialty Phone number Stas Mora MD Referring Family Medicine [phone] Roby Flores is a 87 year old [...] No Known Allergies Indication for Warfarin: terminal [facility] current use of anticoagulant Paroxysmal atrial fibrillation [...] Patient denies need for refills. Yomi Wills [facility] Clinical Pharmacist, Pharmacy Anticoagulation Clinic Pharmacy Anticoagulation Clinic Pager: [phone]. documented in this encounterChillicothe Hospital07-07-2023 Miscellaneous Notes* Telephone Encounter - Jeimy Duong RPh - 09/26/2022 2:11 PM EDT [facility] Anticoagulation Episode Summary Anticoagulation Care Providers Provider Role Specialty Phone number Stas Mora MD Referring Family Medicine [phone] Roby Flores is a 87 year old [...] Pharmacy Anticoagulation Clinic Pharmacy Anticoagulation Clinic Pager: [phone]. documented in this encounterChillicothe Hospital06-23-2023 Miscellaneous Notes* Telephone Encounter - Jeimy Duong RPh - 09/12/2022 2:50 PM EDT [facility] Anticoagulation Episode Summary Anticoagulation Care Providers Provider Role Specialty Phone number Stas Mora MD Referring Family Medicine [phone] Roby Flores is a 87 year old [...] accidental over dosage, changes in warfarin tablet color/shape/clay maker, eating less green vegetables, recent illness/fever/nausea/vomiting/diarrhea, increased [...] Pharmacy Anticoagulation Clinic Pharmacy Anticoagulation Clinic Pager: [phone]. documented in this encounterChillicothe Hospital06-06-2023 Instructions* Patient Instructions* Marta Palacio Ma - 08/26/2022 1:36 PM EDT Please check your medications when you get home and make sure that your medications match our list. documented in this encounterChillicothe Hospital06-06-2023 History of Present illness Narrative* Stas Mora MD - 08/26/2022 1:20 PM EDT Medical B eligibilty date 1999 Date of last exam 09/05/2021 PAST MEDICAL HISTORY Diagnosis Date Coronary atherosclerosis of unspecified type of vessel, picayune or graft Coronary artery disease Other and [...] wishes: Yes I am willing to follow [facility] advanced directives. Depression screen He in the [...] Histories independently gathered by the clinical support teacher and the remaining scribed note accurately describes my personal service to the patient. Stas Mora MD The documentation for this note was completed by Marta Palacio Ma acting as scribe for Stas Mora MD. August 26, 2022 1:17 PM. Marta Palacio Ma documented in this encounterChillicothe Hospital06-02-2023 Miscellaneous Notes* Telephone Encounter - Senia Phillips [facility] - 08/22/2022 2:50 PM EDT [facility] Anticoagulation Episode Summary Anticoagulation Care Providers Provider Role Specialty Phone number Stas Mora MD Referring Family Medicine [phone] Roby Flores is a 87 year old [...] ALLERGIES No Known Allergies Indication for Warfarin: [facility] current use of anticoagulant Paroxysmal atrial fibrillation (hcc) Anticoagulation Episode Summary Current INR goal: 2.0-3.0 Assessment: INR result of 2.4 is therapeutic Plan: Current Warfarin Dosing As of 08/22/2022 Full warfarin instructions: 3.75 mg every Fri; 2.5 mg all other days Sent Ygle message Advised patient to continue current weekly dose as noted above Next lab INR check scheduled on 08/29/2022 Senia Phillips RPh Clinical Pharmacist, Pharmacy Anticoagulation Clinic Pharmacy Anticoagulation Clinic Pager: [phone]. documented in this encounterChillicothe Hospital04-28-2023 Miscellaneous Notes* Telephone Encounter - Senia Phillips RPh - 07/18/2022 3:29 PM EDT [facility] Anticoagulation Episode Summary Anticoagulation Care Providers Provider Role Specialty Phone number Stas Mora MD Referring Family Medicine [phone] Roby Flores is a 86 year old [...] ALLERGIES No Known Allergies Indication for Warfarin: [facility] current use of anticoagulant Paroxysmal atrial fibrillation (hcc) Anticoagulation Episode Summary Current INR goal: 2.0-3.0 Assessment: INR result of 2.1 is therapeutic Plan: Current Warfarin Dosing As of 07/18/2022 Full warfarin instructions: 2.5 mg every day Sent Ygle message Advised patient to continue current weekly dose as noted above Next lab INR check scheduled on 08/01/2022 Senia Phillips RPh Clinical Pharmacist, Pharmacy Anticoagulation Clinic Pharmacy Anticoagulation Clinic Pager: [phone]. documented in this encounterChillicothe Hospital04-14-2023 Miscellaneous Notes* Telephone Encounter - Lety Gandara RP - 07/04/2022 3:46 PM EDT [facility] Anticoagulation Episode Summary Anticoagulation Care Providers Provider Role Specialty Phone number Stas Mora MD Referring Family Medicine [phone] Roby Flores is a 86 year old [...] No Known Allergies Indication for Warfarin: terminal [facility] current use of anticoagulant Paroxysmal atrial fibrillation [...] Pharmacy Anticoagulation Clinic Pharmacy Anticoagulation Clinic Pager: [phone]. documented in this encounterChillicothe Hospital04-03-2023 Miscellaneous Notes* Telephone Encounter - Elvis Kearney APRN.LEAD SYSTEMS DEVELOPER - 06/23/2022 10:17 AM EDT The following approved medication requests have been transmitted electronically. Requested Prescriptions Pending Prescriptions Disp Refills warfarin (COUMADIN) 2.5 mg tablet [Pharmacy Med Name: WARFARIN SODIUM 2.5 MG TABLET] 135 tablet 3 Sig: TAKE 5 MG EVERY MON, DIXIE 2.5 MG ALL OTHER DAYS Elvis Kearney APRN.CNP documented in this encounterChillicothe Hospital03-31-2023 Miscellaneous Notes* Telephone Encounter - Seniarachel Phillips [facility] - 06/20/2022 4:46 PM EDT [facility] Anticoagulation Episode Summary Anticoagulation Care Providers Provider Role Specialty Phone number Stas Mora MD Referring Family Medicine [phone] Roby Flores is a 86 year old [...] ALLERGIES No Known Allergies Indication for Warfarin: [facility] current use of anticoagulant Paroxysmal atrial fibrillation [...] Pharmacy Anticoagulation Clinic Pharmacy Anticoagulation Clinic Pager: [phone]. documented in this encounterChillicothe Hospital03-17-2023 Miscellaneous Notes* Telephone Encounter - Senia Phillips RPh - 06/06/2022 4:18 PM EDT [facility] Anticoagulation Episode Summary Anticoagulation Care Providers Provider Role Specialty Phone number Stas Mora MD Referring Family Medicine [phone] Roby Flores is a 86 year old [...] ALLERGIES No Known Allergies Indication for Warfarin: [facility] current use of anticoagulant Paroxysmal atrial fibrillation (hcc) Anticoagulation Episode Summary Current INR goal: 2.0-3.0 Assessment: INR result of 2.6 is therapeutic Plan: Current Warfarin Dosing As of 06/06/2022 Full warfarin instructions: 2.5 mg every day Sent Ygle message Advised patient to continue current weekly dose as noted above Next lab INR check scheduled on 06/20/2022 Senia Phillips RPh Clinical Pharmacist, Pharmacy Anticoagulation Clinic Pharmacy Anticoagulation Clinic Pager: [phone]. documented in this encounterChillicothe Hospital03-10-2023 Miscellaneous Notes* Telephone Encounter - Neeru Rice LPN - 05/30/2022 3:02 PM EST Pharmacists manage INR documented in this encounterChillicothe Hospital03-02-2023 Miscellaneous Notes* Telephone Encounter - Halina [...] you. Jenna Fitzpatrick APRN.SHEMAR documented in this encounterChillicothe Hospital03-01-2023 Miscellaneous Notes* Telephone Encounter - Judy [...] hip/leg 10. : na Protocols used: Hip [id number], Hip Zaxksw-[id number] documented in this encounterChillicothe Hospital03-01-2023 Miscellaneous Notes* Telephone Encounter - Fani Grace RN - 05/21/2022 12:22 PM EST Patient disconnected during transferred, called multiple time with no answer. documented in this encounterChillicothe Hospital02-27-2023 Miscellaneous Notes* Telephone Encounter - Paige [...] instructions. Franca Cohen LPN documented in this encounterChillicothe Hospital02-24-2023 Miscellaneous Notes* Telephone Encounter - Senia Phillips RPh - 05/16/2022 5:10 PM EST Patient due to test INR today. Will continue to monitor for results. Senia Phillips RPh documented in this encounterChillicothe Hospital02-10-2023 Miscellaneous Notes* Telephone Encounter - Senia Phillips RPh - 05/02/2022 3:06 PM EST [facility] Anticoagulation Episode Summary Anticoagulation Care Providers Provider Role Specialty Phone number Stas Mora MD Referring Family Medicine [phone] Roby Flores is a 86 year old year old male patient being evaluated today for a Telemanagement visit. Patient is currently on the following anticoagulant(s) Warfarin. Labs PT INR (no units) Date Value 05/15/2021 2.3 04/17/2021 1.9 03/13/2021 Test sent to [facility]. INR (no units) Date Value [...] No Known Allergies Indication for Warfarin: terminal carman current use of anticoagulant Paroxysmal atrial fibrillation (hcc) Anticoagulation Episode Summary Current INR goal: 2.0-3.0 Assessment: INR result of 2.1 is therapeutic Plan: Current Warfarin Dosing As of 05/02/2022 Full warfarin instructions: 2.5 mg every day Sent Ygle message Advised patient to continue current weekly dose as noted above Next lab INR check scheduled on 05/16/2022 Senia Phillips RPh Clinical Pharmacist, Pharmacy Anticoagulation Clinic Pharmacy Anticoagulation Clinic Pager: [phone]. documented in this encounterChillicothe Hospital01-27-2023 Miscellaneous Notes* Telephone Encounter - Senia Phillips RPh - 04/18/2022 4:25 PM EST [facility] Anticoagulation Episode Summary Anticoagulation Care Providers Provider Role Specialty Phone number Stas Mora MD Referring Family Medicine [phone] Roby Flores is a 86 year old year old male patient being evaluated today for a Telemanagement visit. Patient is currently on the following anticoagulant(s) Warfarin. Labs PT INR (no units) Date Value 05/15/2021 2.3 04/17/2021 1.9 03/13/2021 Test sent to [facility]. INR (no units) Date Value [...] No Known Allergies Indication for Warfarin: terminal carman current use of anticoagulant Paroxysmal atrial fibrillation (hcc) Anticoagulation Episode Summary Current INR goal: 2.0-3.0 Assessment: INR result of 2.4 is therapeutic Plan: Current Warfarin Dosing As of 04/18/2022 Full warfarin instructions: 2.5 mg every day; Starting 04/18/2022 Sent Ygle message Advised patient to continue current weekly dose as noted above Next lab INR check scheduled on 05/02/2022 Senia Phillips RPh Clinical Pharmacist, Pharmacy Anticoagulation Clinic [facility] Pager: [phone]. documented in this encounterChillicothe Hospital01-13-2023 Miscellaneous Notes* Telephone Encounter - Elise Paredes RPh - 04/04/2022 4:09 PM EST [facility] Anticoagulation Episode Summary Anticoagulation Care Providers Provider Role Specialty Phone number Stas Mora MD Referring Family Medicine [phone] Roby Flores is a 86 year old year old male patient being evaluated today for a Lab INR. Patient is currently on the following anticoagulant(s) Warfarin. Labs PT INR (no units) Date Value 05/15/2021 2.3 04/17/2021 1.9 03/13/2021 Test sent to [facility]. INR (no units) Date Value [...] ALLERGIES No Known Allergies Indication for Warfarin: [facility] current use of anticoagulant Paroxysmal atrial fibrillation [...] getting labs every 2 weeks Elise Paredes [facility] Clinical Pharmacist, Pharmacy Anticoagulation Clinic Pharmacy An[facility] Pager: [phone]. documented in this encounterChillicothe Hospital01-09-2023 Miscellaneous Notes* Telephone Encounter - Rosie Cruz Ma - 03/31/2022 5:12 PM EST Office received continuity of care paperwork from the [place] requesting pt's last OV, labs and Imm. PerPCP okay to fax back requested records. Faxed back to [facility] at F#: [phone]. Rosie Cruz Ma documented in this encounterChillicothe Hospital12-30-2022 Miscellaneous Notes* Telephone Encounter - Carmelina Cruz [facility] - 03/21/2022 4:05 PM EST [facility] Anticoagulation Episode Summary Anticoagulation Care Providers Provider Role Specialty Phone number Stas Mora MD Referring Family Medicine [phone] Roby Flores is a 86 year old year old male patient being evaluated today for a Telemanagement visit. Patient is currently on the following anticoagulant(s) Warfarin. Labs PT INR (no units) Date Value 05/15/2021 2.3 04/17/2021 1.9 03/13/2021 Test sent to [facility]. INR (no units) Date Value [...] ALLERGIES No Known Allergies Indication for Warfarin: [facility] current use of anticoagulant Paroxysmal atrial fibrillation (hcc) Anticoagulation Episode Summary Current INR goal: 2.0-3.0 Assessment: INR result of 2.9 is therapeutic Plan: Current Warfarin Dosing As of 03/21/2022 Full warfarin instructions: 2.5 mg every day; Starting 03/21/2022 Sent Ygle message Advised patient to continue current weekly dose as noted above Next home INR check scheduled on 04/04/2022 Carmelina Cruz RPh Clinical Pharmacist, Pharmacy Anticoagulation Clinic Pharmacy Anticoagulation Clinic Pager: [phone]. * Telephone Encounter - Carmelina Cruz RPh - 03/21/2022 3:12 PM EST Patient due to test INR today. Will continue to monitor for results. Carmelina Cruz RPh documented in this encounterChillicothe Hospital12-02-2022 Miscellaneous Notes* Telephone Encounter - Oliva [...] whatever he wanted to. documented in this encounterChillicothe Hospital10-31-2022 Miscellaneous Notes* Telephone Encounter - Paige Hickman RPh - 01/20/2022 3:55 PM EDT [facility] Anticoagulation Episode Summary Anticoagulation Care Providers Provider Role Specialty Phone number Stas Mora MD Referring Family Medicine [phone] Roby Flores is a 86 year old year old male patient being evaluated today for a Telemanagement visit. Patient is currently on the following anticoagulant(s) Warfarin. Labs PT INR (no units) Date Value 05/15/2021 2.3 04/17/2021 1.9 03/13/2021 Test sent to [facility]. INR (no units) Date Value [...] instructed to call [facility] at [phone] with any questionsor concerns. Paige Hickman RPh Clinical Pharmacist, Pharmacy Anticoagulation Clinic Pharmacy Anticoagulation Clinic Pager: [phone] documented in this encounterChillicothe Hospital10-28-2022 Miscellaneous Notes* Telephone Encounter - Senia [...] the providers message. Sent information as a Varentect message as well. Elana Valdes RN * [...] to contact patient with no answer at [phone]. Current dose of coumadin is: 2.5 mg every day . Previous INR (date and result): 01/03/22 2.4 documented in this encounterChillicothe Hospital10-24-2022 Miscellaneous Notes* Telephone Encounter - Jenna [...] advise. López Mckenna LPN documented in this encounterChillicothe Hospital10-14-2022 Miscellaneous Notes* Telephone Encounter - Senia Phillips RPh - 01/03/2022 4:11 PM EDT [facility] Anticoagulation Episode Summary Anticoagulation Care Providers Provider Role Specialty Phone number Stas Mora MD Referring Family Medicine [phone] Roby Flores is a 86 year old year old male patient being evaluated today for a Telemanagement visit. Patient is currently on the following anticoagulant(s) Warfarin. Labs PT INR (no units) Date Value 05/15/2021 2.3 04/17/2021 1.9 03/13/2021 Test sent to [facility]. INR (no units) Date Value [...] No Known Allergies Indication for Warfarin: terminal carman current use of anticoagulant Paroxysmal atrial fibrillation (hcc) Anticoagulation Episode Summary Current INR goal: 2.0-3.0 Assessment: INR result of 2.4 is therapeutic Plan: Current Warfarin Dosing As of 01/03/2022 Full warfarin instructions: 2.5 mg every day Sent Ygle message Advised patient to continue current weekly dose as noted above Next lab INR check scheduled on 01/17/2022 Senia Phillips RPh Clinical Pharmacist, Pharmacy Anticoagulation Clinic Pharmacy Anticoagulation Clinic Pager: [phone]. documented in this encounterChillicothe Hospital10-14-2022 Miscellaneous Notes* Telephone Encounter - Marta Palacio Ma - 01/03/2022 10:49 AM EDT Pt notified of results via Ygle. Marta Palacio Ma * Telephone Encounter - Stas Mora MD - 01/02/2022 6:07 PM EDT Please notify patient that his thyroid ultrasound looks OK, the nodules are all small, appear normal, and do not need any further evaluation pr follow up. Stas Mora MD documented in this encounterChillicothe Hospital10-06-2022 History of Present illness Narrative* Sats Mora MD - 12/26/2021 11:20 AM EDT [...] 1-2 hours. Pt was admitted to [facility] ER 12/21/21 with stroke [...] extremities. He has 5 out of 5 car parker strength bilaterally. Dorsi and plantar flexion intact. [...] Chronic anticoagulation: Status: Acute Code(s): Z79.01 - [facility] (current) use of anticoagulants Medications at Discharge [...] symptoms resolved. Hospital Course: 1. TIA/paroxysmal A. [id number]-old male presented with right-sided weakness and aphasia, [...] Coronary atherosclerosis of unspecified type of vessel, picayune or graft Coronary artery disease Other and [...] ADVANCE DIRECTIVE DISCUSSION Completed Data reviewed [facility] reports from 10/21/21-10/22/21 ASSESSMENT/PLAN: [...] unspecified vessel or lesion type, unspecified whether picayune or transplanted heart - ICD9: 414.00, ICD10: I25.10 Continue current medications. Follow up in Dec as scheduled with fasting labs prior. I agree with the Chief Complaint, ROS, and Past Histories independently gathered by the clinical support teacher and the remaining scribed note accurately describes [...] AM. Marta Palacio Ma documented in this encounterChillicothe Hospital09-30-2022 Miscellaneous Notes* Telephone Encounter - Senia Phillips [facility] - 12/20/2021 4:39 PM EDT [facility] Anticoagulation Episode Summary Anticoagulation Care Providers Provider Role Specialty Phone number Stas Mora MD Referring Family Medicine [phone] Roby Flores is a 86 year old year old male patient being evaluated today for a Telemanagement visit. Patient is currently on the following anticoagulant(s) Warfarin. Labs PT INR (no units) Date Value 05/15/2021 2.3 04/17/2021 1.9 03/13/2021 Test sent to [facility]. INR (no units) Date Value [...] No Known Allergies Indication for Warfarin: terminal carman current use of anticoagulant Paroxysmal atrial fibrillation (hcc) Anticoagulation Episode Summary Current INR goal: 2.0-3.0 Assessment: INR result of 2.1 is therapeutic Plan: Current Warfarin Dosing As of 12/20/2021 Full warfarin instructions: 2.5 mg every day Sent Ygle message Advised patient to continue current weekly dose as noted above Next lab INR check scheduled on 01/03/2022 Senia Phillips RPh Clinical Pharmacist, Pharmacy Anticoagulation Clinic Pharmacy Anticoagulation Clinic Pager: [phone]. documented in this encounterChillicothe Hospital09-16-2022 Miscellaneous Notes* Telephone Encounter - Senia Phillips RPh - 12/06/2021 4:29 PM EDT [facility] Anticoagulation Episode Summary Anticoagulation Care Providers Provider Role Specialty Phone number Stas Mora MD Referring [facility] [phone] Roby Flores is a 86 year old year old male patient being evaluated today for a Telemanagement visit. Patient is currently on the following anticoagulant(s) Warfarin. Labs PT INR (no units) Date Value 05/15/2021 2.3 04/17/2021 1.9 03/13/2021 Test sent to [facility]. INR (no units) Date Value [...] No Known Allergies Indication for Warfarin: terminal carman current use of anticoagulant Paroxysmal atrial fibrillation [...] Pharmacy Anticoagulation Clinic Pharmacy Anticoagulation Clinic Pager: [phone]. documented in this encounterChillicothe Hospital09-02-2022 Miscellaneous Notes* Telephone Encounter - Janice Huang RPh - 11/22/2021 5:17 PM EDT [facility] Anticoagulation Episode Summary Anticoagulation Care Providers Provider Role Specialty Phone number Stas Mora MD Referring [facility] [phone] Roby Flores is a 86 year old year old male patient being evaluated today for a Telemanagement visit. Patient is currently on the following anticoagulant(s) Warfarin. Labs PT INR (no units) Date Value 05/15/2021 2.3 04/17/2021 1.9 03/13/2021 Test sent to [facility]. INR (no units) Date Value [...] ALLERGIES No Known Allergies Indication for Warfarin: [facility] current use of anticoagulant Paroxysmal atrial fibrillation [...] Advised pt to Call Coumadin Clinic at [phone] to confirm dosing and follow-up Janice Huang [facility] Clinical Pharmacist, Pharmacy Anticoagulation Clinic Pharmacy Anticoagulation Clinic Pager: [phone]. documented in this encounterChillicothe Hospital08-19-2022 Miscellaneous Notes* Telephone Encounter - Senia PhillipsEnrqiue - 11/08/2021 5:01 PM EDT [facility] Anticoagulation Episode Summary Anticoagulation Care Providers Provider Role Specialty Phone number Stas Mora MD Referring [facility] [phone] Roby Flores is a 86 year old year old male patient being evaluated today for a Telemanagement visit. Patient is currently on the following anticoagulant(s) Warfarin. Labs PT INR (no units) Date Value 05/15/2021 2.3 04/17/2021 1.9 03/13/2021 Test sent to [facility]. INR (no units) Date Value [...] ALLERGIES No Known Allergies Indication for Warfarin: [facility] current use of anticoagulant Paroxysmal atrial fibrillation (hcc) Anticoagulation Episode Summary Current INR goal: 2.0-3.0 Assessment: INR result of 2.8 is therapeutic Plan: Current Warfarin Dosing As of 11/08/2021 Full warfarin instructions: 2.5 mg every day Sent Ygle message Advised patient to continue current weekly dose as noted above Next lab INR check scheduled on 11/22/2021 Senia Phillips RPh Clinical Pharmacist, Pharmacy Anticoagulation Clinic Pharmacy Anticoagulation Clinic Pager: [phone]. documented in this encounterChillicothe Hospital08-05-2022 Miscellaneous Notes* Telephone Encounter - Janice Huang RPh - 10/25/2021 4:16 PM EDT [facility] Anticoagulation Episode Summary Anticoagulation Care Providers Provider Role Specialty Phone number Stas Mora MD Referring [facility] [phone] Roby Flores is a 86 year old year old male patient being evaluated today for a Telemanagement visit. Patient is currently on the following anticoagulant(s) Warfarin. Labs PT INR (no units) Date Value 05/15/2021 2.3 04/17/2021 1.9 03/13/2021 Test sent to [facility]. INR (no units) Date Value [...] ALLERGIES No Known Allergies Indication for Warfarin: [facility] current use of anticoagulant Paroxysmal atrial fibrillation [...] Pharmacy Anticoagulation Clinic Pharmacy Anticoagulation Clinic Pager: [phone] . documented in this encounterChillicothe Hospital07-08-2022 Miscellaneous Notes* Telephone Encounter - Elana Campbell (Softwood Faller) - 09/27/2021 4:50 PM EDT PATIENT CALL Patient called call center regarding results. Patient called and stated he had his INR checked today (09/27) and it was 2.3. Patient can be called at [phone] with any questions or sent MC message if result is within range. PT INR (no units) Date Value 05/15/2021 2.3 04/17/2021 1.9 03/13/2021 Test sent to [facility]. INR (no units) Date Value 09/27/2021 2.3 09/13/2021 2.7 08/30/2021 2.1 Elana Campbell ([facility] Faller) * Telephone Encounter - Yomi Wills RPh - 09/27/2021 6:28 AM EDT Patient due to test INR today. Will continue to monitor for results. Yomi Wills RPh documented in this encounterChillicothe Hospital06-24-2022 Miscellaneous Notes* Telephone Encounter - Senia Phillips RPh - 09/13/2021 4:11 PM EDT [facility] Anticoagulation Episode Summary Anticoagulation Care Providers Provider Role Specialty Phone number Stas Mora MD Referring [facility] [phone] Roby Flores is a 86 year old year old male patient being evaluated today for a Telemanagement visit. Patient is currently on the following anticoagulant(s) Warfarin. Labs PT INR (no units) Date Value 05/15/2021 2.3 04/17/2021 1.9 03/13/2021 Test sent to [facility]. INR (no units) Date Value [...] ALLERGIES No Known Allergies Indication for Warfarin: [facility] current use of anticoagulant Paroxysmal atrial fibrillation (hcc) Anticoagulation Episode Summary Current INR goal: 2.0-3.0 Assessment: INR result of 2.7 is therapeutic Plan: Sent Ygle message Advised patient to continue current weekly dose Next lab INR check scheduled on 09/27/2021 Senia Phillips RPh Clinical Pharmacist, Pharmacy Anticoagulation Clinic Pharmacy Anticoagulation Clinic Pager: [phone] . documented in this encounterChillicothe Hospital06-16-2022 History of Present illness Narrative* tSas Mora MD - 09/05/2021 11:20 AM EDT Medical B eligibilty date 1999 Date of last exam 08/28/2020 PAST MEDICAL HISTORY Diagnosis Date Coronary atherosclerosis of unspecified type of vessel, picayune or graft Coronary artery disease Other and [...] [facility]. [facility] follows with [facility] for Coumadin management. Pt denies any other Specialist. End of Live Planning discussed including patients advanced directive wishes: Yes has both. Daughteris his POA. I am willing to follow Millis advanced directives. Depression screen He in the [...] to remember the following three words: Banana, Bergman and Chair Visuospatial/Executive Functioning: Clock drawin/2 (Normal [...] Histories independently gathered by the clinical support teacher and the remaining scribed note accurately describes my personal service to the patient. Stas Mora MD The documentation for this note was completed by Rosie Cruz Ma acting as scribe for Stas Mora MD. September 05, 2021 11:33 AM. Rosie Cruz Ma documented in this encounterChillicothe Hospital06-10-2022 Miscellaneous Notes* Telephone Encounter - Senia Phillips RPh - 08/30/2021 5:10 PM EDT [facility] Anticoagulation Episode Summary Anticoagulation Care Providers Provider Role Specialty Phone number Stas Mora MD Referring [facility] [phone] Roby Flores is a 86 year old year old male patient being evaluated today for a Telemanagement visit. Patient is currently on the following anticoagulant(s) Warfarin. Labs PT INR (no units) Date Value 05/15/2021 2.3 04/17/2021 1.9 03/13/2021 Test sent to [facility]. INR (no units) Date Value [...] No Known Allergies Indication for Warfarin: terminal carman current use of anticoagulant Paroxysmal atrial fibrillation (hcc) Anticoagulation Episode Summary Current INR goal: 2.0-3.0 Assessment: INR result of 2.1 is therapeutic Plan: Sent Ygle message Advised patient to continue current weekly dose Next lab INR check scheduled on 09/13/2021 Senia Phillips RPh Clinical Pharmacist, Pharmacy Anticoagulation Clinic Pharmacy Anticoagulation Clinic Pager: [phone] . documented in this encounterChillicothe Hospital06-10-2022 Miscellaneous Notes* Telephone Encounter - Jenna Fitzpatrick APRN.CNP - 08/30/2021 8:56 AM EDT Needs order for PT/INR, order signed. Jenna Fitzpatrick APRN.SHEMAR documented in this encounterChillicothe Hospital05-27-2022 Miscellaneous Notes* Telephone Encounter - Rosie Cruz Ma - 08/16/2021 2:18 PM EDT INR has been reviewed in another encounter. Rosie Cruz Ma documented in this encounterChillicothe Hospital05-13-2022 Miscellaneous Notes* Telephone Encounter - Senia Phillips RPh - 08/02/2021 4:11 PM EDT [facility] Anticoagulation Episode Summary Anticoagulation Care Providers Provider Role Specialty Phone number Stas Mora MD Referring [facility] [phone] Roby Flores is a 85 year old year old male patient being evaluated today for a Telemanagement visit. Patient is currently on the following anticoagulant(s) Warfarin. Labs PT INR (no units) Date Value 05/15/2021 2.3 04/17/2021 1.9 03/13/2021 Test sent to [facility]. INR (no units) Date Value [...] No Known Allergies Indication for Warfarin: terminal carman current use of anticoagulant Paroxysmal atrial fibrillation [...] Pharmacy Anticoagulation Clinic Pharmacy Anticoagulation Clinic Pager: [phone] . documented in this encounterChillicothe Hospital04-27-2022 Miscellaneous Notes* Telephone Encounter - Rosie [...] months Stas Mora MD documented in this encounterChillicothe Hospital04-25-2022 Miscellaneous Notes* Telephone Encounter - Elvis Kearney APRN.CNP - 07/15/2021 12:39 PM EDT The following approved medication requests have been transmitted electronically. Pending Prescriptions Disp Refills WARFARIN 2.5 MG TABLET 135 tablet 3 Sig: TAKE 5 MG EVERY MON, DIXIE 2.5 MG ALL OTHER DAYS MESFIN: No Elvis Kearney APRN.CNP documented in this encounterChillicothe Hospital04-18-2022 History of Present illness Narrative* Stas [...] SOB. No swelling in feet orankles. No soap boiler. Taking Fosinopril 10 mg daily. Lipid: Taking [...] Coronary atherosclerosis of unspecified type of vessel, picayune or graft Coronary artery disease Other and [...] unspecified vessel or lesion type, unspecified whether picayune or transplanted heart - ICD9: 414.00, ICD10: [...] Histories independently gathered by the clinical support teacher and the remaining scribed note accurately describes [...] AM. Marta Palacio Ma documented in this encounterChillicothe Hospital04-13-2022 Miscellaneous Notes* Telephone Encounter - Coretta Jalloh, [facility] - 07/03/2021 3:40 PM EDT [facility] Anticoagulation Episode Summary Anticoagulation Care Providers Provider Role Specialty Phone number Stas Mora MD Referring [facility] [phone] Roby Flores is a 85 year old year old male patient being evaluated today for a Lab INR. Patient is currently on the following anticoagulant(s) Warfarin. Labs PT INR (no units) Date Value 05/15/2021 2.3 04/17/2021 1.9 03/13/2021 Test sent to [facility]. INR (no units) Date Value 07/03/2021 4.5 06/12/2021 3.5 Creatinine (mg/dL) Date Value 03/13/2021 0.80 08/28/2020 0.83 Bilirubin, Total (mg/dL) Date Value 03/13/2021 0.5 ALT (U/L) Date Value 03/13/2021 24 AST (U/L) Date Value 03/13/2021 24 CrCl cannot be calculated (Unknown ideal weight.). ALLERGIES No Known Allergies Indication for Warfarin: terminal carman current use of anticoagulant Paroxysmal atrial fibrillation [...] Pharmacy Anticoagulation Clinic Pharmacy Anticoagulation Clinic Pager: [phone] . * Telephone Encounter - Marta Palacio Ma - 07/03/2021 3:05 PM EDT INR 4.5. Results routed to pharmacist who Handles pt coumadin. Marta Palacio Ma documented in this encounterChillicothe Hospital03-23-2022 Miscellaneous Notes* Telephone Encounter - Coretta Jalloh RPh - 06/12/2021 3:20 PM EDT [facility] Anticoagulation Episode Summary Anticoagulation Care Providers Provider Role Specialty Phone number Stas Mora MD Referring [facility] [phone] Roby Flores is a 85 year old year old male patient being evaluated today for a Lab INR. Patient is currently on the following anticoagulant(s) Warfarin. Labs PT INR (no units) Date Value 05/15/2021 2.3 04/17/2021 1.9 03/13/2021 Test sent to [facility]. INR (no units) Date Value 06/12/2021 3.5 Creatinine (mg/dL) Date Value 03/13/2021 0.80 08/28/2020 0.83 Bilirubin, Total (mg/dL) Date Value 03/13/2021 0.5 ALT (U/L) Date Value 03/13/2021 24 AST (U/L) Date Value 03/13/2021 24 CrCl cannot be calculated (Unknown ideal weight.). ALLERGIES No Known Allergies Indication for Warfarin: [facility] current use of anticoagulant Paroxysmal atrial fibrillation (hcc) Anticoagulation Episode Summary Current INR goal: 2.0-3.0 Assessment: INR result of 3.5 is SUPRAtherapeutic due to: No obvious cause Plan: Called and spoke to patient/caregiver Advised patient to hold 1 dose then continue current regimen Next lab INR check scheduled on 07/03 in [place]. Patient verbalizes understanding of the plan. Patient denies need for refills. Coretta Jalloh RPh Clinical Pharmacist, Pharmacy Anticoagulation Clinic Pharmacy Anticoagulation Clinic Pager: [phone] . * Telephone Encounter - Rosie Cruz Ma - 06/12/2021 3:08 PM EDT Pt's INR results have finalized. Routing to pharm to review and advise. Rosie Cruz Ma documented in this encounterChillicothe Hospital12-21-2020 History of Present illness Narrative* Hussein [...] 12, 2020 5:01 PM documented in this encounterChillicothe HospitalDischarge summary Author Inderjit Gillespie [facility] Note Date/Time September 01, 2024 10:2 5am [facility] Medical Records Department [address] [place] [address] Emergency Department Summary 09/01/24 MR#: [id number] Acct: [id number] Name: ROBY FLORES Rep #:[id number] : [...] shoulders elbows and wrist. He has normal car parker strength. Neurologically he is awake alert. Answering [...] 87.5 H Lymph % (Auto) 4.8 L [place] % (Auto) 5.7 Eos % (Auto) 1.2 [...] Clarity Clear Urine pH 8.0 Ur Specific Alexander 1.010 Urine Protein 15 H Urine Glucose [...] No fracture or dislocation present. Reading Location: [facility]--[address] 09/01/24 09:05 IMPRESSION: Cerebral atrophy. Mucosal thickening of the ethmoid sinuses as well as opacification of the left maxillary sinus. Reading Location: [facility]-IR-1 Chest X-Ray 09/01/24 09:25 IMPRESSION: No acute abnormality is seen. Reading Location: [facility]-IR-1 Chest x-ray, 2 views, AP [...] thrive Disposition Disposition: Acute Care Hospital [facility] What to do if you have Problems For any increased pain, shortness of breath, bleeding, nausea or vomiting, chestpain, or any unexpected problems, contact your Primary Care Provider. Call [employer] [facility] ([phone]) or report to the closest Emergency Room. Call 911 if necessary. 09/01/24 1025 <Electronically signed by Inderjit Gillespie MD> Cosigner Signature (if applicable): CC: Dr. Stas Mora MD ~ Signed [facility] Work Phone: Evaluation + Plan note No data available for this section [facility] Evaluation note* 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 Long-term (current) use of anticoagulants Paroxysmal atrial fibrillation (HCC) Atrial fibrillation [facility] current use of anticoagulant- Primary Long-term (current) use of anticoagulants Paroxysmal atrial fibrillation (HCC) Atrial fibrillation [facility] Diagnosis Essential hypertension, benign- Primary Atherosclerosis 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, unspecified vessel or lesion type, unspecified whether [place] or transplanted heart Paroxysmal atrial fibrillation (HCC) Atrial fibrillation Primary osteoarthritis of both knees Primary localized osteoarthrosis, lower leg [facility] Atherosclerosis of coronary artery without angina pectoris, unspecified vessel or lesion type, unspecified whether [place] or transplanted heart- Primary Essential hypertension, benign [facility] 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 Long-term (current) use of anticoagulants Paroxysmal atrial fibrillation (HCC) Atrial fibrillation [facility] Diagnosis Elevated INR- Primary Abnormal coagulation profile [facility] 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 Long-term (current) use of anticoagulants Paroxysmal atrial fibrillation (HCC) Atrial fibrillation [facility] Diagnosis Encounter for Medicare annual wellness exam- Primary Routine general medical examination at a health care facility Paroxysmal atrial fibrillation (HCC) Atrial fibrillation Essential hypertension, benign [facility] current use of anticoagulant- Primary Long-term (current) use of anticoagulants Encounter for monitoring Coumadin therapy Encounter for therapeutic drug monitoring [facility] 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 Long-term (current) use of anticoagulants Paroxysmal atrial fibrillation (HCC) Atrial fibrillation documented in this encounter [facility] note* Diagnosis [facility] current use of anticoagulant- Primary Long-term (current) use of anticoagulants Paroxysmal atrial fibrillation (HCC) Atrial fibrillation documented in this encounter [facility] note* Diagnosis Onset Date Resolution Status Chronic anticoagulation acut e TIA (transient ischemic attack) acute CAD (coronary artery disease) [facility] Work Phone: Evaluation note* Diagnosis Onset Date Resolution Status Chronic anticoagulation acut e Stroke-like symptoms acute TIA (transient ischemic attack) acute CAD (coronary artery disease) [facility] Work Phone: Evaluation note* Diagnosis Hospital discharge follow-up- Primary Other follow-up examination Encounter for immunization Need for other specified prophylactic vaccination against single bacterial disease TIA (transient ischemic attack) Unspecified transient cerebral ischemia Thyroid nodule Nontoxic uninodular goiter Essential hypertension, benign Paroxysmal atrial fibrillation (HCC) Atrial fibrillation Atherosclerosis of coronary artery without angina pectoris, unspecified vessel or lesion type, unspecified whether [place] or transplanted heart documented in this encounter [facility] note* 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 Long-term (current) use of anticoagulants Paroxysmal atrial fibrillation (HCC) Atrial fibrillation documented in this encounter [facility] note* 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 Long-term (current) use of anticoagulants Paroxysmal atrial fibrillation (HCC) Atrial fibrillation documented in this encounter [facility] note* Diagnosis [facility] current use of anticoagulant- Primary Long-term (current) use of anticoagulants Paroxysmal atrial fibrillation (HCC) Atrial fibrillation documented in this encounter [facility] note* Diagnosis Encounter for Medicare annual wellness exam- Primary Routine general medical examination at a [facility] facility Paroxysmal atrial fibrillation (HCC) Atrial fibrillation Essential hypertension, benign Hyperlipidemia, unspecified hyperlipidemia type [facility] Diagnosis [facility] current use of anticoagulant- Primary Long-term (current) use of anticoagulants Paroxysmal atrial fibrillation (HCC) Atrial fibrillation documented in this encounter [facility] note* Diagnosis [facility] current use of anticoagulant- Primary Long-term (current) use of anticoagulants Paroxysmal atrial fibrillation (HCC) Atrial fibrillation documented in this encounter [facility] note* 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 Long-term (current) use of anticoagulants Paroxysmal atrial fibrillation (HCC) Atrial fibrillation [facility] Diagnosis [facility] current use of anticoagulant- Primary Long-term (current) use of anticoagulants Paroxysmal atrial fibrillation (HCC) Atrial fibrillation documented in this encounter [facility] noteNo assessment information availableWSycamore Medical [facility] Work Phone: Evaluation note* 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 Long-term (current) use of anticoagulants Paroxysmal atrial fibrillation (HCC) Atrial fibrillation documented in this encounter [facility] note* Diagnosis Cerebral infarction, unspecified mechanism (HCC)- Primary Generalized weakness Other malaise and fatigue Speech disturbance, unspecified type Hyperlipidemia, unspecified hyperlipidemia type Essential hypertension, benign Paroxysmal atrial fibrillation (HCC) Atrial fibrillation [facility]* Diagnosis Cerebral infarction, unspecified mechanism (HCC) documented in this encounter [facility] note* 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 Long-term (current) use of anticoagulants Paroxysmal atrial fibrillation (HCC) Atrial fibrillation [facility]* Diagnosis Essential hypertension, benign- Primary Paroxysmal atrial fibrillation (HCC) Atrial fibrillation Atherosclerosis of coronary artery without angina pectoris, unspecified vessel or lesion type, unspecified whether [place] or transplanted heart Hyperlipidemia, unspecified hyperlipidemia type History of stroke with 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 Speech disturbance, unspecified type documented in this encounter [facility] note* Diagnosis Abnormal CBC- Primary Other abnormal blood chemistry documented in this encounter [facility] note* Diagnosis [facility] current use of anticoagulant- Primary Long-term (current) use of anticoagulants Paroxysmal atrial fibrillation (HCC) Atrial fibrillation documented in this encounter [facility] note* Diagnosis [facility] current use of anticoagulant- Primary Long-term (current) use of anticoagulants Paroxysmal atrial fibrillation (HCC) Atrial fibrillation documented in this encounter [facility] note* 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 Long-term (current) use of anticoagulants Paroxysmal atrial fibrillation (HCC) Atrial fibrillation [facility] 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 Long-term (current) use of anticoagulants Paroxysmal atrial fibrillation (HCC) Atrial fibrillation documented in this encounter [facility] note* Diagnosis 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, psychotic disturbance, mood disturbance, or anxiety (HCC)- Primary Essential hypertension, benign Paroxysmal atrial fibrillation (HCC) Atrial fibrillation [facility] Diagnosis Edema of both lower legs- Primary [facility] Diagnosis [facility] current use of anticoagulant- Primary Long-term (current) use of anticoagulants Paroxysmal atrial fibrillation (HCC) Atrial fibrillation [facility] Diagnosis [facility] current use of anticoagulant Long-term (current) use of anticoagulants Paroxysmal atrial fibrillation (HCC) Atrial fibrillation [facility] Diagnosis Essential hypertension, benign- Primary Hyperlipidemia, unspecified hyperlipidemia type Edema of both lower legs Paroxysmal atrial fibrillation (HCC) Atrial fibrillation History of stroke with 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, psychotic disturbance, mood disturbance, or anxiety (HCC) Urinary frequency Abnormal CBC Other abnormal blood chemistry [facility] 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 Long-term (current) use of anticoagulants Paroxysmal atrial fibrillation (HCC) Atrial fibrillation [facility] Diagnosis [facility] current use of anticoagulant- Primary Long-term (current) use of anticoagulants Paroxysmal atrial fibrillation (HCC) Atrial fibrillation [facility]* Diagnosis Left hip pain Pain in joint, pelvic region and thigh [facility] 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 Long-term (current) use of anticoagulants Paroxysmal atrial fibrillation (HCC) Atrial fibrillation [facility] Diagnosis Acute right-sided low back pain, unspecified whether sciatica present [facility] Diagnosis Paroxysmal atrial fibrillation (HCC)- Primary Atrial fibrillation [facility] current use of anticoagulant- Primary Long-term (current) use of anticoagulants Paroxysmal atrial fibrillation (HCC) Atrial fibrillation [facility] 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 Long-term (current) use of anticoagulants Paroxysmal atrial fibrillation (HCC) Atrial fibrillation [facility]* Diagnosis Dementia, unspecified dementia severity, unspecified dementia type, unspecified whether behavioral, psychotic, or mood disturbance or anxiety (HCC)- Primary [facility] Diagnosis [facility] current use of anticoagulant- Primary Long-term (current) use of anticoagulants Paroxysmal atrial fibrillation (HCC) Atrial fibrillation [facility]* Diagnosis Dementia, unspecified dementia [...] and musculoskeletal systems documented in this encounter [facility] note* Diagnosis Cognitive impairment, mild, so stated Mild cognitive impairment, so stated documented in this encounter [facility] note* Diagnosis Essential hypertension, benign- Primary Hyperlipidemia, unspecified hyperlipidemia type Atherosclerosis of coronary artery without angina pectoris, unspecified vessel or lesion type, unspecified whether [place]une or transplanted heart Paroxysmal atrial fibrillation (HCC) Atrial fibrillation Edema of both lower legs History of stroke with 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 Dementia, unspecified dementia severity, unspecified dementia type, unspecified whether behavioral, psychotic, or mood disturbance or anxiety (HCC) documented in this encounter [facility] note* 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) Paralysis agitans documented in this encounter [facility] note* Diagnosis Bursitis of right elbow, unspecified bursa- Primary documented in this encounter [facility] note* Diagnosis Moderate dementia without behavioral disturbance, psychotic disturbance, mood disturbance, or anxiety, unspecified dementia type (HCC)- Primary Hallucinations Screening for depression Encounter for screening examination for other mental health and behavioral disorders documented in this encounter [facility] for referral (narrative)* Diagnostic Procedure Only (Routine) - Authorized Specialty Diagnoses / Procedures Referred By Jennifer gomez Referred To Contact US IMAGING Diagnoses Thyroid nodule Procedures US THYROID/PARATHYROID US SOFT TISSUE HEAD & NECK REAL TIME IMGE DOCM Stas Mora MD [address] [place] [address] Us Imaging Referral ID Status Reason Start Date Expiration Date Visits Requested Visits Authorized [id number] Authorized Auto-Generat ed Referral 12/26/2021 01/25/2023 1 1 [facility] for referral (narrative)* Diagnostic Procedure Only (Urgent) - Closed Specialty Diagnoses / Procedures Referred By Contac t Referred To Contact XR IMAGING Diagnoses Left hip pain Procedures XR HIP GENERAL 3V PELV/AP/LAT LEFT RADEX HIP UNILATERAL WITH PELVIS 2-3 VIEWS Jenna Fitzpatrick APRN.[employer]S DEVELOPER [address] [place] [address] [place] [address] Referral ID Status Reason Start Date Expiration Date V isits Requested Visits Authorized [id number] Closed Auto-Generate d Referral 05/21/2022 06/20/2023 1 1 [facility] for referral (narrative)No reason for referral information availableWSycamore Medical Center Work Phone: [facility] Narrative* Diagnostic Procedure Only (Urgent) - Closed Specialty Diagnoses / Procedures Referred By Contac t Referred To Contact XR IMAGING Diagnoses Left hip pain Procedures XR HIP GENERAL 3V PELV/AP/LAT LEFT RADEX HIP UNILATERAL WITH PELVIS 2-3 VIEWS Jenna Fitzpatrick, JETHRO.LEAD SYSTEMS DEVELOPER [address] [place] [address] [place] [address] Referral ID Status Reason Start Date Expiration Date V isits Requested Visits Authorized [id number] Closed Auto-Generate d Referral 05/21/2022 06/20/2023 1 1 [facility] for visit Narrative* MRI/CT (Routine) - Closed Specialty Diagnoses / Procedures Referred By Contac t Referred To Contact MR IMAGING Diagnoses Cognitive impairment, mild, so stated Procedures MRI BRAIN W QUANT WO IVCON MRI BRAIN BRAIN STEM W/O CONTRAST MATERIAL Luciana Cisneros MD [address] [place] [address] Phone: tel: fax: [place] [id number] Referral ID Status Reason Start Date Expiration Date V isits Requested Visits Authorized [id number] Closed Auto-Generate d Referral 05/11/2024 07/10/2024 1 1 [facility] Summary Purpose Family History No Family [...] Will Yes December 21 6:17pm Power of Client Account Specialist Yes December 21 6:17pm Name of Medical Power of Client Account Specialist IRAJ HULL , DAUGHTER December 21, 2021 6:17pm Advance Directive Response Recorded Date/ Time Name of Medical Power of Client Account Specialist Anabella Hull December 21, 2021 8:06pm Living Will Yes December 21 8:06pm Power of Client Account Specialist Yes December 21 8:06pm Advance Directive Response Recorded Date/ Time Living Will Yes February 10, 023 3:17pm Power of Client Account Specialist Yes February 10, 2023 3:17pm Name of Medical Power of Client Account Specialist daughter-yomi hull February 10, 2023 3:17pm Advance Directive Response Recorded Date/ Time Do you have a Healthcare Power of Client Account Specialist? Yes September 01, 2024 7:36am Name of Medical Power of Client Account Specialist anabella hull September 01, 2024 7:36am Advance Directive Response Recorded Date/ Time Do you have a Healthcare Power of Client Account Specialist? Yes September 01, 2024 12:00pm Name of Medical Power of Client Account Specialist anabella hull September 01, 2024 12:00pm Chief [...] LAB WORK September 28, 2024 5:00a m [facility] LAB WORK September 29, 2024 5: 00am Admission H&P Exam September 30, 2024 5:50 pm [facility] LAB WORK October 05, 2024 5: 00am [facility] LAB WORK October 06, 2024 5: 00am [...] LAB WORK September 28, 2024 5:00a m [facility] LAB WORK September 29, 2024 5: 00am Admission H&P Exam September 30, 2024 5:50 pm [facility] LAB WORK October 05, 2024 5: 00am [facility] LAB WORK October 06, 2024 5: 00am [...] LAB WORK September 28, 2024 5:00a m [facility] LAB WORK September 29, 2024 5: 00am Admission H&P Exam September 30, 2024 5:50 pm [facility] LAB WORK October 05, 2024 5: 00am [facility] LAB WORK October 06, 2024 5: 00am [...] LAB WORK September 28, 2024 5:00a m [facility] LAB WORK September 29, 2024 5: 00am Admission H&P Exam September 30, 2024 5:50 pm [facility] LAB WORK October 05, 2024 5: 00am [facility] LAB WORK October 06, 2024 5: 00am [...] LAB WORK September 28, 2024 5:00a m [facility] LAB WORK September 29, 2024 5: 00am Admission H&P Exam September 30, 2024 5:50 pm [facility] LAB WORK October 05, 2024 5: 00am [facility] LAB WORK October 06, 2024 5: 00am New Concern October 20, 2024 2:54 pm ADMISSION, H&P October 25, 2024 2:2 2pm LABWORK October 31, 2024 5: 00am LABWORK November 02, 2024 5: 00am [facility] LAB WORK November 23 5:00am ADMISSION H&P EXAM BY [employer] CLERK November 24, 2024 3:34pm LABWORK November 25, 2024 5:00am ADMISSION H&P/MONTHLY EXAM November 1:06pm [facility] LAB WORK November 30 5:00am [facility] LAB WORK December 14 5:35am [facility] LAB WORK December 21, 2024 5:45am Reason for Referral Specialty Diagnoses / Procedures Referred By Contac t Referred To Contact [facility] Diagnoses Shuffling gait Ambulatory dysfunction Balance disorder Procedures CONSULT TO PHYSICAL THERAPY PHYSICAL THERAPY EVALUATION [facility] COMPLEX 45 MINS Luciana Cisneros MD [address] [place] [address] [facility] [address] [place] [address] Referral ID Status Reason Start Date Expiration Date Visits Requested Visits Authorized [id number] Pending Review Auto-Generat ed Referral 04/27/2024 04/27/2025 1 1 Specialty Diagnoses / Procedures Referred By Contac t Referred To Contact MR IMAGING Diagnoses Cognitive impairment, mild, so stated Procedures MRI BRAIN W QUANT WO IVCON MRI BRAIN BRAIN STEM W/O CONTRAST MATERIAL Luciana Cisneros MD [address] [place] [id number] Mr Imaging [facility] Referral ID Status Reason Start Date Expiration Date Visits Requested Visits Authorized [id number] Pending Review Auto-Generat ed Referral 04/27/2024 05/27/2025 1 1 Specialty Diagnoses / Procedures Referred By Contac t Referred To Contact Gerontology Diagnoses Dementia, unspecified dementia severity, unspecified dementia type, unspecified whether behavioral, psychotic, or mood disturbance or anxiety (HCC) Procedures CONSULT TO GERIATRICS OFFICE/OUTPATIENT [facility] 60 MINUTES Stas Mora MD [address] [place] [id number] Referral ID Status Reason Start Date Expiration Date Visits Requested Visits Authorized [id number] Authorized PCP Requested Referral 04/25/2024 04/25/2025 1 1 Specialty Diagnoses / Procedures Referred By Contac t Referred To Contact MR IMAGING Diagnoses Cerebral infarction, unspecified mechanism (HCC) Procedures MRI BRAIN WO IVCON MRI BRAIN BRAIN STEM W/O CONTRAST MATERIAL Stas Mora MD [address] [place] [id number] Mr Imaging [facility] Referral ID Status Reason Start Date Expiration Date Visits Requested Visits Authorized [id number] Pending Review Auto-Genera eli Referral Patient Cleared [...] section and content) DATE CREATED AUTHOR [facility]/11[facility] DATE CREATED AUTHOR AUTHOR'S ORGANIZ ATION [facility] DATE CREATED AUTHOR AUTHOR'S ORGANIZ ATION 09/15/2017 [facility] DATE CREATED AUTHOR AUTHOR'S ORGANIZ ATION 08/12/2023 [facility] ([place]) DATE CREATED AUTHOR AUTHOR'S ORGANIZ ATION 05/24/2024 [facility] DATE CREATED AUTHOR AUTHOR'S ORGANIZ ATION 02/02/2025 [facility] DATE CREATED AUTHOR AUTHOR'S ORGANIZ ATION 02/02/2025 [facility] Source Comments (unrecognize d section and content) In the event this informatio n is protected by the Federal Confidentiality of Alcohol and Drug Abuse Patient Records regulations: The Federal rules restrict any use of the information to criminally investigate or prosecute any alcohol or drug abuse patient.[facility] the event this information is protected by the Federal Confidentiality of Alcohol and Drug Abuse Patient Records regulations: The Federal rules restrict any use of the information to criminally investigate or prosecute any alcohol or drug abuse patient.[facility] Hospital[facility] the event this information is protected by the Federal Confidentiality of Alcohol and Drug Abuse Patient Records regulations: The Federal rules restrict any use of the information to criminally investigate or prosecute any alcohol or drug abuse patient.[facility] Hospital[facility] the event this information is protected by the Federal Confidentiality of Alcohol and Drug Abuse Patient Records regulations: The Federal rules restrict any use of the information to criminally investigate or prosecute any alcohol or drug abuse patient.[facility] Hospital[facility] the event this information is protected by the Federal Confidentiality of Alcohol and Drug Abuse Patient Records regulations: The Federal rules restrict any use of the information to criminally investigate or prosecute any alcohol or drug abuse patient.[facility]In the event this information is protected by the Federal Confidentiality of Alcohol and Drug Abuse Patient Records regulations: The Federal rules restrict any use of the information to criminally investigate or prosecute any alcohol or drug abuse patient.[facility] HospitalIn the event this information is protected by the Federal Confidentiality of Alcohol and Drug Abuse Patient Records regulations: The Federal rules restrict any use of the information to criminally investigate or prosecute any alcohol or drug abuse patient.[facility] HospitalIn the event this information is protected by the Federal Confidentiality of Alcohol and Drug Abuse Patient Records regulations: The Federal rules restrict any use of the information to criminally investigate or prosecute any alcohol or drug abuse patient.[facility] HospitalIn the event this information is protected by the Federal Confidentiality of Alcohol and Drug Abuse Patient Records regulations: The Federal rules restrict any use of the information to criminally investigate or prosecute any alcohol or drug abuse patient.[facility] HospitalIn the event this information is protected by the Federal Confidentiality of Alcohol and Drug Abuse Patient Records regulations: The Federal rules restrict any use of the information to criminally investigate or prosecute any alcohol or drug abuse patient.[facility] HospitalIn the event this information is protected by the Federal Confidentiality of Alcohol and Drug Abuse Patient Records regulations: The Federal rules restrict any use of the information to criminally investigate or prosecute any alcohol or drug abuse patient.[facility] HospitalIn the event this information is protected by the Federal Confidentiality of Alcohol and Drug Abuse Patient Records regulations: The Federal rules restrict any use of the information to criminally investigate or prosecute any alcohol or drug abuse patient.[facility] HospitalIn the event this information is protected by the Federal Confidentiality of Alcohol and Drug Abuse Patient Records regulations: The Federal rules restrict any use of the information to criminally investigate or prosecute any alcohol or drug abuse patient.[facility] HospitalIn the event this information is protected by the Federal Confidentiality of Alcohol and Drug Abuse Patient Records regulations: The Federal rules restrict any use of the information to criminally investigate or prosecute any alcohol or drug abuse patient.[facility] HospitalIn the event this information is protected by the Federal Confidentiality of Alcohol and Drug Abuse Patient Records regulations: The Federal rules restrict any use of the information to criminally investigate or prosecute any alcohol or drug abuse patient.[facility] HospitalIn the event this information is protected by the Federal Confidentiality of Alcohol and Drug Abuse Patient Records regulations: The Federal rules restrict any use of the information to criminally investigate or prosecute any alcohol or drug abuse patient.[facility] HospitalIn the event this information is protected by the Federal Confidentiality of Alcohol and Drug Abuse Patient Records regulations: The Federal rules restrict any use of the information to criminally investigate or prosecute any alcohol or drug abuse patient.[facility] HospitalIn the event this information is protected by the Federal Confidentiality of Alcohol and Drug Abuse Patient Records regulations: The Federal rules restrict any use of the information to criminally investigate or prosecute any alcohol or drug abuse patient.[facility] HospitalIn the event this information is protected by the Federal Confidentiality of Alcohol and Drug Abuse Patient Records regulations: The Federal rules restrict any use of the information to criminally investigate or prosecute any alcohol or drug abuse patient.[facility] HospitalIn the event this information is protected by the Federal Confidentiality of Alcohol and Drug Abuse Patient Records regulations: The Federal rules restrict any use of the information to criminally investigate or prosecute any alcohol or drug abuse patient.[facility] HospitalIn the event this information is protected by the Federal Confidentiality of Alcohol and Drug Abuse Patient Records regulations: The Federal rules restrict any use of the information to criminally investigate or prosecute any alcohol or drug abuse patient.[facility] HospitalIn the event this information is protected by the Federal Confidentiality of Alcohol and Drug Abuse Patient Records regulations: The Federal rules restrict any use of the information to criminally investigate or prosecute any alcohol or drug abuse patient.[facility] HospitalIn the event this information is protected by the Federal Confidentiality of Alcohol and Drug Abuse Patient Records regulations: The Federal rules restrict any use of the information to criminally investigate or prosecute any alcohol or drug abuse patient.[facility] HospitalIn the event this information is protected by the Federal Confidentiality of Alcohol and Drug Abuse Patient Records regulations: The Federal rules restrict any use of the information to criminally investigate or prosecute any alcohol or drug abuse patient.[facility] HospitalIn the event this information is protected by the Federal Confidentiality of Alcohol and Drug Abuse Patient Records regulations: The Federal rules restrict any use of the information to criminally investigate or prosecute any alcohol or drug abuse patient.[facility] HospitalIn the event this information is protected by the Federal Confidentiality of Alcohol and Drug Abuse Patient Records regulations: The Federal rules restrict any use of the information to criminally investigate or prosecute any alcohol or drug abuse patient.[facility] HospitalIn the event this information is protected by the Federal Confidentiality of Alcohol and Drug Abuse Patient Records regulations: The Federal rules restrict any use of the information to criminally investigate or prosecute any alcohol or drug abuse patient.[facility] HospitalIn the event this information is protected by the Federal Confidentiality of Alcohol and Drug Abuse Patient Records regulations: The Federal rules restrict any use of the information to criminally investigate or prosecute any alcohol or drug abuse patient.[facility] HospitalIn the event this information is protected by the Federal Confidentiality of Alcohol and Drug Abuse Patient Records regulations: The Federal rules restrict any use of the information to criminally investigate or prosecute any alcohol or drug abuse patient.[facility] HospitalIn the event this information is protected by the Federal Confidentiality of Alcohol and Drug Abuse Patient Records regulations: The Federal rules restrict any use of the information to criminally investigate or prosecute any alcohol or drug abuse patient.[facility] HospitalIn the event this information is protected by the Federal Confidentiality of Alcohol and Drug Abuse Patient Records regulations: The Federal rules restrict any use of the information to criminally investigate or prosecute any alcohol or drug abuse patient.[facility] HospitalIn the event this information is protected by the Federal Confidentiality of Alcohol and Drug Abuse Patient Records regulations: The Federal rules restrict any use of the information to criminally investigate or prosecute any alcohol or drug abuse patient.[facility] HospitalIn the event this information is protected by the Federal Confidentiality of Alcohol and Drug Abuse Patient Records regulations: The Federal rules restrict any use of the information to criminally investigate or prosecute any alcohol or drug abuse patient.[facility] HospitalIn the event this information is protected by the Federal Confidentiality of Alcohol and Drug Abuse Patient Records regulations: The Federal rules restrict any use of the information to criminally investigate or prosecute any alcohol or drug abuse patient.[facility] HospitalIn the event this information is protected by the Federal Confidentiality of Alcohol and Drug Abuse Patient Records regulations: The Federal rules restrict any use of the information to criminally investigate or prosecute any alcohol or drug abuse patient.[facility] HospitalIn the event this information is protected by the Federal Confidentiality of Alcohol and Drug Abuse Patient Records regulations: The Federal rules restrict any use of the information to criminally investigate or prosecute any alcohol or drug abuse patient.[facility] HospitalIn the event this information is protected by the Federal Confidentiality of Alcohol and Drug Abuse Patient Records regulations: The Federal rules restrict any use of the information to criminally investigate or prosecute any alcohol or drug abuse patient.[facility] HospitalIn the event this information is protected by the Federal Confidentiality of Alcohol and Drug Abuse Patient Records regulations: The Federal rules restrict any use of the information to criminally investigate or prosecute any alcohol or drug abuse patient.[facility] HospitalIn the event this information is protected by the Federal Confidentiality of Alcohol and Drug Abuse Patient Records regulations: The Federal rules restrict any use of the information to criminally investigate or prosecute any alcohol or drug abuse patient.[facility] HospitalIn the event this information is protected by the Federal Confidentiality of Alcohol and Drug Abuse Patient Records regulations: The Federal rules restrict any use of the information to criminally investigate or prosecute any alcohol or drug abuse patient.[facility] HospitalIn the event this information is protected by the Federal Confidentiality of Alcohol and Drug Abuse Patient Records regulations: The Federal rules restrict any use of the information to criminally investigate or prosecute any alcohol or drug abuse patient.[facility] HospitalIn the event this information is protected by the Federal Confidentiality of Alcohol and Drug Abuse Patient Records regulations: The Federal rules restrict any use of the information to criminally investigate or prosecute any alcohol or drug abuse patient.[facility] HospitalIn the event this information is protected by the Federal Confidentiality of Alcohol and Drug Abuse Patient Records regulations: The Federal rules restrict any use of the information to criminally investigate or prosecute any alcohol or drug abuse patient.[facility] HospitalIn the event this information is protected by the Federal Confidentiality of Alcohol and Drug Abuse Patient Records regulations: The Federal rules restrict any use of the information to criminally investigate or prosecute any alcohol or drug abuse patient.[facility] HospitalIn the event this information is protected by the Federal Confidentiality of Alcohol and Drug Abuse Patient Records regulations: The Federal rules restrict any use of the information to criminally investigate or prosecute any alcohol or drug abuse patient.[facility] HospitalIn the event this information is protected by the Federal Confidentiality of Alcohol and Drug Abuse Patient Records regulations: The Federal rules restrict any use of the information to criminally investigate or prosecute any alcohol or drug abuse patient.[facility] HospitalIn the event this information is protected by the Federal Confidentiality of Alcohol and Drug Abuse Patient Records regulations: The Federal rules restrict any use of the information to criminally investigate or prosecute any alcohol or drug abuse patient.[facility] HospitalIn the event this information is protected by the Federal Confidentiality of Alcohol and Drug Abuse Patient Records regulations: The Federal rules restrict any use of the information to criminally investigate or prosecute any alcohol or drug abuse patient.[facility] HospitalIn the event this information is protected by the Federal Confidentiality of Alcohol and Drug Abuse Patient Records regulations: The Federal rules restrict any use of the information to criminally investigate or prosecute any alcohol or drug abuse patient.[facility] HospitalIn the event this information is protected by the Federal Confidentiality of Alcohol and Drug Abuse Patient Records regulations: The Federal rules restrict any use of the information to criminally investigate or prosecute any alcohol or drug abuse patient.[facility] HospitalIn the event this information is protected by the Federal Confidentiality of Alcohol and Drug Abuse Patient Records regulations: The Federal rules restrict any use of the information to criminally investigate or prosecute any alcohol or drug abuse patient.[facility] HospitalIn the event this information is protected by the Federal Confidentiality of Alcohol and Drug Abuse Patient Records regulations: The Federal rules restrict any use of the information to criminally investigate or prosecute any alcohol or drug abuse patient.[facility] HospitalIn the event this information is protected by the Federal Confidentiality of Alcohol and Drug Abuse Patient Records regulations: The Federal rules restrict any use of the information to criminally investigate or prosecute any alcohol or drug abuse patient.[facility] HospitalIn the event this information is protected by the Federal Confidentiality of Alcohol and Drug Abuse Patient Records regulations: The Federal rules restrict any use of the information to criminally investigate or prosecute any alcohol or drug abuse patient.[facility] HospitalIn the event this information is protected by the Federal Confidentiality of Alcohol and Drug Abuse Patient Records regulations: The Federal rules restrict any use of the information to criminally investigate or prosecute any alcohol or drug abuse patient.[facility] HospitalIn the event this information is protected by the Federal Confidentiality of Alcohol and Drug Abuse Patient Records regulations: The Federal rules restrict any use of the information to criminally investigate or prosecute any alcohol or drug abuse patient.[facility] HospitalIn the event this information is protected by the Federal Confidentiality of Alcohol and Drug Abuse Patient Records regulations: The Federal rules restrict any use of the information to criminally investigate or prosecute any alcohol or drug abuse patient.[facility] HospitalIn the event this information is protected by the Federal Confidentiality of Alcohol and Drug Abuse Patient Records regulations: The Federal rules restrict any use of the information to criminally investigate or prosecute any alcohol or drug abuse patient.[facility] HospitalIn the event this information is protected by the Federal Confidentiality of Alcohol and Drug Abuse Patient Records regulations: The Federal rules restrict any use of the information to criminally investigate or prosecute any alcohol or drug abuse patient.[facility] HospitalIn the event this information is protected by the Federal Confidentiality of Alcohol and Drug Abuse Patient Records regulations: The Federal rules restrict any use of the information to criminally investigate or prosecute any alcohol or drug abuse patient.[facility] HospitalIn the event this information is protected by the Federal Confidentiality of Alcohol and Drug Abuse Patient Records regulations: The Federal rules restrict any use of the information to criminally investigate or prosecute any alcohol or drug abuse patient.[facility] HospitalIn the event this information is protected by the Federal Confidentiality of Alcohol and Drug Abuse Patient Records regulations: The Federal rules restrict any use of the information to criminally investigate or prosecute any alcohol or drug abuse patient.[facility] HospitalIn the event this information is protected by the Federal Confidentiality of Alcohol and Drug Abuse Patient Records regulations: The Federal rules restrict any use of the information to criminally investigate or prosecute any alcohol or drug abuse patient.[facility] HospitalIn the event this information is protected by the Federal Confidentiality of Alcohol and Drug Abuse Patient Records regulations: The Federal rules restrict any use of the information to criminally investigate or prosecute any alcohol or drug abuse patient.[facility] HospitalIn the event this information is protected by the Federal Confidentiality of Alcohol and Drug Abuse Patient Records regulations: The Federal rules restrict any use of the information to criminally investigate or prosecute any alcohol or drug abuse patient.[facility] HospitalIn the event this information is protected by the Federal Confidentiality of Alcohol and Drug Abuse Patient Records regulations: The Federal rules restrict any use of the information to criminally investigate or prosecute any alcohol or drug abuse patient.[facility] HospitalIn the event this information is protected by the Federal Confidentiality of Alcohol and Drug Abuse Patient Records regulations: The Federal rules restrict any use of the information to criminally investigate or prosecute any alcohol or drug abuse patient.[facility] HospitalIn the event this information is protected by the Federal Confidentiality of Alcohol and Drug Abuse Patient Records regulations: The Federal rules restrict any use of the information to criminally investigate or prosecute any alcohol or drug abuse patient.[facility] HospitalIn the event this information is protected by the Federal Confidentiality of Alcohol and Drug Abuse Patient Records regulations: The Federal rules restrict any use of the information to criminally investigate or prosecute any alcohol or drug abuse patient.[facility] HospitalIn the event this information is protected by the Federal Confidentiality of Alcohol and Drug Abuse Patient Records regulations: The Federal rules restrict any use of the information to criminally investigate or prosecute any alcohol or drug abuse patient.[facility] HospitalIn the event this information is protected by the Federal Confidentiality of Alcohol and Drug Abuse Patient Records regulations: The Federal rules restrict any use of the information to criminally investigate or prosecute any alcohol or drug abuse patient.[facility] HospitalIn the event this information is protected by the Federal Confidentiality of Alcohol and Drug Abuse Patient Records regulations: The Federal rules restrict any use of the information to criminally investigate or prosecute any alcohol or drug abuse patient.[facility] HospitalIn the event this information is protected by the Federal Confidentiality of Alcohol and Drug Abuse Patient Records regulations: The Federal rules restrict any use of the information to criminally investigate or prosecute any alcohol or drug abuse patient.[facility] HospitalIn the event this information is protected by the Federal Confidentiality of Alcohol and Drug Abuse Patient Records regulations: The Federal rules restrict any use of the information to criminally investigate or prosecute any alcohol or drug abuse patient.[facility] HospitalIn the event this information is protected by the Federal Confidentiality of Alcohol and Drug Abuse Patient Records regulations: The Federal rules restrict any use of the information to criminally investigate or prosecute any alcohol or drug abuse patient.[facility] HospitalIn the event this information is protected by the Federal Confidentiality of Alcohol and Drug Abuse Patient Records regulations: The Federal rules restrict any use of the information to criminally investigate or prosecute any alcohol or drug abuse patient.[facility] HospitalIn the event this information is protected by the Federal Confidentiality of Alcohol and Drug Abuse Patient Records regulations: The Federal rules restrict any use of the information to criminally investigate or prosecute any alcohol or drug abuse patient.[facility] HospitalIn the event this information is protected by the Federal Confidentiality of Alcohol and Drug Abuse Patient Records regulations: The Federal rules restrict any use of the information to criminally investigate or prosecute any alcohol or drug abuse patient.[facility] HospitalIn the event this information is protected by the Federal Confidentiality of Alcohol and Drug Abuse Patient Records regulations: The Federal rules restrict any use of the information to criminally investigate or prosecute any alcohol or drug abuse patient.[facility] HospitalIn the event this information is protected by the Federal Confidentiality of Alcohol and Drug Abuse Patient Records regulations: The Federal rules restrict any use of the information to criminally investigate or prosecute any alcohol or drug abuse patient.[facility] HospitalIn the event this information is protected by the Federal Confidentiality of Alcohol and Drug Abuse Patient Records regulations: The Federal rules restrict any use of the information to criminally investigate or prosecute any alcohol or drug abuse patient.[facility] HospitalIn the event this information is protected by the Federal Confidentiality of Alcohol and Drug Abuse Patient Records regulations: The Federal rules restrict any use of the information to criminally investigate or prosecute any alcohol or drug abuse patient.[facility] HospitalIn the event this information is protected by the Federal Confidentiality of Alcohol and Drug Abuse Patient Records regulations: The Federal rules restrict any use of the information to criminally investigate or prosecute any alcohol or drug abuse patient.[facility] HospitalIn the event this information is protected by the Federal Confidentiality of Alcohol and Drug Abuse Patient Records regulations: The Federal rules restrict any use of the information to criminally investigate or prosecute any alcohol or drug abuse patient.[facility] HospitalIn the event this information is protected by the Federal Confidentiality of Alcohol and Drug Abuse Patient Records regulations: The Federal rules restrict any use of the information to criminally investigate or prosecute any alcohol or drug abuse patient.[facility] HospitalIn the event this information is protected by the Federal Confidentiality of Alcohol and Drug Abuse Patient Records regulations: The Federal rules restrict any use of the information to criminally investigate or prosecute any alcohol or drug abuse patient.[facility] HospitalIn the event this information is protected by the Federal Confidentiality of Alcohol and Drug Abuse Patient Records regulations: The Federal rules restrict any use of the information to criminally investigate or prosecute any alcohol or drug abuse patient.[facility] HospitalIn the event this information is protected by the Federal Confidentiality of Alcohol and Drug Abuse Patient Records regulations: The Federal rules restrict any use of the information to criminally investigate or prosecute any alcohol or drug abuse patient.[facility] HospitalIn the event this information is protected by the Federal Confidentiality of Alcohol and Drug Abuse Patient Records regulations: The Federal rules restrict any use of the information to criminally investigate or prosecute any alcohol or drug abuse patient.[facility] HospitalIn the event this information is protected by the Federal Confidentiality of Alcohol and Drug Abuse Patient Records regulations: The Federal rules restrict any use of the information to criminally investigate or prosecute any alcohol or drug abuse patient.[facility] HospitalIn the event this information is protected by the Federal Confidentiality of Alcohol and Drug Abuse Patient Records regulations: The Federal rules restrict any use of the information to criminally investigate or prosecute any alcohol or drug abuse patient.[facility] HospitalIn the event this information is protected by the Federal Confidentiality of Alcohol and Drug Abuse Patient Records regulations: The Federal rules restrict any use of the information to criminally investigate or prosecute any alcohol or drug abuse patient.[facility] HospitalIn the event this information is protected by the Federal Confidentiality of Alcohol and Drug Abuse Patient Records regulations: The Federal rules restrict any use of the information to criminally investigate or prosecute any alcohol or drug abuse patient.[facility] HospitalIn the event this information is protected by the Federal Confidentiality of Alcohol and Drug Abuse Patient Records regulations: The Federal rules restrict any use of the information to criminally investigate or prosecute any alcohol or drug abuse patient.[facility] HospitalIn the event this information is protected by the Federal Confidentiality of Alcohol and Drug Abuse Patient Records regulations: The Federal rules restrict any use of the information to criminally investigate or prosecute any alcohol or drug abuse patient.[facility] HospitalIn the event this information is protected by the Federal Confidentiality of Alcohol and Drug Abuse Patient Records regulations: The Federal rules restrict any use of the information to criminally investigate or prosecute any alcohol or drug abuse patient.[facility] HospitalIn the event this information is protected by the Federal Confidentiality of Alcohol and Drug Abuse Patient Records regulations: The Federal rules restrict any use of the information to criminally investigate or prosecute any alcohol or drug abuse patient.[facility] HospitalIn the event this information is protected by the Federal Confidentiality of Alcohol and Drug Abuse Patient Records regulations: The Federal rules restrict any use of the information to criminally investigate or prosecute any alcohol or drug abuse patient.[facility] HospitalIn the event this information is protected by the Federal Confidentiality of Alcohol and Drug Abuse Patient Records regulations: The Federal rules restrict any use of the information to criminally investigate or prosecute any alcohol or drug abuse patient.[facility] HospitalIn the event this information is protected by the Federal Confidentiality of Alcohol and Drug Abuse Patient Records regulations: The Federal rules restrict any use of the information to criminally investigate or prosecute any alcohol or drug abuse patient.[facility] HospitalIn the event this information is protected by the Federal Confidentiality of Alcohol and Drug Abuse Patient Records regulations: The Federal rules restrict any use of the information to criminally investigate or prosecute any alcohol or drug abuse patient.[facility] HospitalIn the event this information is protected by the Federal Confidentiality of Alcohol and Drug Abuse Patient Records regulations: The Federal rules restrict any use of the information to criminally investigate or prosecute any alcohol or drug abuse patient.[facility] HospitalIn the event this information is protected by the Federal Confidentiality of Alcohol and Drug Abuse Patient Records regulations: The Federal rules restrict any use of the information to criminally investigate or prosecute any alcohol or drug abuse patient.[facility] HospitalIn the event this information is protected by the Federal Confidentiality of Alcohol and Drug Abuse Patient Records regulations: The Federal rules restrict any use of the information to criminally investigate or prosecute any alcohol or drug abuse patient.[facility] HospitalIn the event this information is protected by the Federal Confidentiality of Alcohol and Drug Abuse Patient Records regulations: The Federal rules restrict any use of the information to criminally investigate or prosecute any alcohol or drug abuse patient.[facility] HospitalIn the event this information is protected by the Federal Confidentiality of Alcohol and Drug Abuse Patient Records regulations: The Federal rules restrict any use of the information to criminally investigate or prosecute any alcohol or drug abuse patient.[facility] HospitalIn the event this information is protected by the Federal Confidentiality of Alcohol and Drug Abuse Patient Records regulations: The Federal rules restrict any use of the information to criminally investigate or prosecute any alcohol or drug abuse patient.[facility] HospitalIn the event this information is protected by the Federal Confidentiality of Alcohol and Drug Abuse Patient Records regulations: The Federal rules restrict any use of the information to criminally investigate or prosecute any alcohol or drug abuse patient.[facility] HospitalIn the event this information is protected by the Federal Confidentiality of Alcohol and Drug Abuse Patient Records regulations: The Federal rules restrict any use of the information to criminally investigate or prosecute any alcohol or drug abuse patient.[facility] HospitalIn the event this information is protected by the Federal Confidentiality of Alcohol and Drug Abuse Patient Records regulations: The Federal rules restrict any use of the information to criminally investigate or prosecute any alcohol or drug abuse patient.[facility] HospitalIn the event this information is protected by the Federal Confidentiality of Alcohol and Drug Abuse Patient Records regulations: The Federal rules restrict any use of the information to criminally investigate or prosecute any alcohol or drug abuse patient.[facility] HospitalIn the event this information is protected by the Federal Confidentiality of Alcohol and Drug Abuse Patient Records regulations: The Federal rules restrict any use of the information to criminally investigate or prosecute any alcohol or drug abuse patient.[facility] HospitalIn the event this information is protected by the Federal Confidentiality of Alcohol and Drug Abuse Patient Records regulations: The Federal rules restrict any use of the information to criminally investigate or prosecute any alcohol or drug abuse patient.[facility] HospitalIn the event this information is protected by the Federal Confidentiality of Alcohol and Drug Abuse Patient Records regulations: The Federal rules restrict any use of the information to criminally investigate or prosecute any alcohol or drug abuse patient.[facility] HospitalIn the event this information is protected by the Federal Confidentiality of Alcohol and Drug Abuse Patient Records regulations: The Federal rules restrict any use of the information to criminally investigate or prosecute any alcohol or drug abuse patient.[facility] HospitalIn the event this information is protected by the Federal Confidentiality of Alcohol and Drug Abuse Patient Records regulations: The Federal rules restrict any use of the information to criminally investigate or prosecute any alcohol or drug abuse patient.[facility] HospitalIn the event this information is protected by the Federal Confidentiality of Alcohol and Drug Abuse Patient Records regulations: The Federal rules restrict any use of the information to criminally investigate or prosecute any alcohol or drug abuse patient.[facility] HospitalIn the event this information is protected by the Federal Confidentiality of Alcohol and Drug Abuse Patient Records regulations: The Federal rules restrict any use of the information to criminally investigate or prosecute any alcohol or drug abuse patient.[facility] HospitalIn the event this information is protected by the Federal Confidentiality of Alcohol and Drug Abuse Patient Records regulations: The Federal rules restrict any use of the information to criminally investigate or prosecute any alcohol or drug abuse patient.[facility] HospitalIn the event this information is protected by the Federal Confidentiality of Alcohol and Drug Abuse Patient Records regulations: The Federal rules restrict any use of the information to criminally investigate or prosecute any alcohol or drug abuse patient.[facility] HospitalIn the event this information is protected by the Federal Confidentiality of Alcohol and Drug Abuse Patient Records regulations: The Federal rules restrict any use of the information to criminally investigate or prosecute any alcohol or drug abuse patient.[facility] HospitalIn the event this information is protected by the Federal Confidentiality of Alcohol and Drug Abuse Patient Records regulations: The Federal rules restrict any use of the information to criminally investigate or prosecute any alcohol or drug abuse patient.[facility] HospitalIn the event this information is protected by the Federal Confidentiality of Alcohol and Drug Abuse Patient Records regulations: The Federal rules restrict any use of the information to criminally investigate or prosecute any alcohol or drug abuse patient.[facility] HospitalIn the event this information is protected by the Federal Confidentiality of Alcohol and Drug Abuse Patient Records regulations: The Federal rules restrict any use of the information to criminally investigate or prosecute any alcohol or drug abuse patient.[facility] HospitalIn the event this information is protected by the Federal Confidentiality of Alcohol and Drug Abuse Patient Records regulations: The Federal rules restrict any use of the information to criminally investigate or prosecute any alcohol or drug abuse patient.[facility] HospitalIn the event this information is protected by the Federal Confidentiality of Alcohol and Drug Abuse Patient Records regulations: The Federal rules restrict any use of the information to criminally investigate or prosecute any alcohol or drug abuse patient.[facility] HospitalIn the event this information is protected by the Federal Confidentiality of Alcohol and Drug Abuse Patient Records regulations: The Federal rules restrict any use of the information to criminally investigate or prosecute any alcohol or drug abuse patient.[facility] HospitalIn the event this information is protected by the Federal Confidentiality of Alcohol and Drug Abuse Patient Records regulations: The Federal rules restrict any use of the information to criminally investigate or prosecute any alcohol or drug abuse patient.[facility] HospitalIn the event this information is protected by the Federal Confidentiality of Alcohol and Drug Abuse Patient Records regulations: The Federal rules restrict any use of the information to criminally investigate or prosecute any alcohol or drug abuse patient.[facility] HospitalIn the event this information is protected by the Federal Confidentiality of Alcohol and Drug Abuse Patient Records regulations: The Federal rules restrict any use of the information to criminally investigate or prosecute any alcohol or drug abuse patient.[facility] HospitalIn the event this information is protected by the Federal Confidentiality of Alcohol and Drug Abuse Patient Records regulations: The Federal rules restrict any use of the information to criminally investigate or prosecute any alcohol or drug abuse patient.[facility] HospitalIn the event this information is protected by the Federal Confidentiality of Alcohol and Drug Abuse Patient Records regulations: The Federal rules restrict any use of the information to criminally investigate or prosecute any alcohol or drug abuse patient.[facility] HospitalIn the event this information is protected by the Federal Confidentiality of Alcohol and Drug Abuse Patient Records regulations: The Federal rules restrict any use of the information to criminally investigate or prosecute any alcohol or drug abuse patient.[facility] HospitalIn the event this information is protected by the Federal Confidentiality of Alcohol and Drug Abuse Patient Records regulations: The Federal rules restrict any use of the information to criminally investigate or prosecute any alcohol or drug abuse patient.[facility] Reason for Visit (unrecogniz ed section [...] STEM W/O CONTRAST MATERIAL Stas Mora MD [address] [place] [address] [place] [address] Referral ID Status Reason Start Date Expiration Date V isits Requested Visits Authorized [id number] Closed Auto-Generat ed Referral Patient Cleared - [...] (HCC) Procedures CONSULT TO GERIATRICS OFFICE/OUTPATIENT [facility] 60 MINUTES Stas Mora MD [address] [place] [address] Referral ID Status Reason Start Date Expiration Date V isits Requested Visits Authorized [id number] Closed PCP Requested Referral 04/25/2024 04/25/2025 1 [...] Care Teams (unrecognized sec tion and content) Powerhouse Electrician Relationship Specialty Start Date End Date Stas Mora MD [address] [facility] [place] [address] PCP - General 08/02/08, Pharmacist [address] [place] [address] Pharmacist Pharmacy 10/19/19 Powerhouse Electrician Relationship Specialty Start Date End Date Stas Mora MD [address] [place] [address] PCP - General 08/02/08, Pharmacist [address] [place] [address] Pharmacist Pharmacy 10/19/19 Powerhouse Electrician Relationship Specialty Start Date End Date Stas Mora MD [address] [place] [address] PCP - General 08/02/08, Pharmacist [address] [place] [address] Pharmacist Pharmacy 10/19/19 Powerhouse Electrician Relationship Specialty Start Date End Date Stas Mora MD [address] [place] [address] PCP - General 08/02/08, Pharmacist [address] [place] [address] Pharmacist Pharmacy 10/19/19 Powerhouse Electrician Relationship Specialty Start Date End Date Stas Mora MD [address] [place] [address] PCP - General 08/02/08, Pharmacist [address] [place] [address] Pharmacist Pharmacy 10/19/19 Powerhouse Electrician Relationship Specialty Start Date End Date Stas Mora MD [address] [facility] [place] [address] PCP - General 08/02/08, Pharmacist [address] [place] [address] Pharmacist Pharmacy 10/19/19 Powerhouse Electrician Relationship Specialty Start Date End Date Stas Mora MD [address] [facility] [place] [address] PCP - General 08/02/08, Pharmacist [address] [place] [address] Pharmacist Pharmacy 10/19/19 Powerhouse Electrician Relationship Specialty Start Date End Date Stas Mora MD [address] [place] [address] PCP - General 08/02/08, Pharmacist [address] [place] [address] Pharmacist Pharmacy 10/19/19 Powerhouse Electrician Relationship Specialty Start Date End Date Stas Mora MD [address] [facility] [place] [address] PCP - General 08/02/08, Pharmacist [address] [place] [address] Pharmacist Pharmacy 10/19/19 Powerhouse Electrician Relationship Specialty Start Date End Date Stas Mora MD [address] [facility] [place] [address] PCP - General 08/02/08, Pharmacist [address] [place] [address] Pharmacist Pharmacy 10/19/19 Powerhouse Electrician Relationship Specialty Start Date End Date Stas Mora MD [address] [facility] [place] [address] PCP - General 08/02/08, Pharmacist [address] [place] [address] Pharmacist Pharmacy 10/19/19 Powerhouse Electrician Relationship Specialty Start Date End Date Stas Mora MD [address] [facility] [place] [address] PCP - General 08/02/08, Pharmacist [address] [place] [address] Pharmacist Pharmacy 10/19/19 Powerhouse Electrician Relationship Specialty Start Date End Date Stas Mora MD [address] [facility] [place] [address] PCP - General 08/02/08, Pharmacist [address] [place] [address] Pharmacist Pharmacy 10/19/19 Powerhouse Electrician Relationship Specialty Start Date End Date Stas Mora MD [address] [place] [address] PCP - General 08/02/08, Pharmacist [address] [place] [address] Pharmacist Pharmacy 10/19/19 Powerhouse Electrician Relationship Specialty Start Date End Date Stas Mora MD [address] [facility] [place] [address] PCP - General 08/02/08, Pharmacist [address] [place] [address] Pharmacist Pharmacy 10/19/19 Powerhouse Electrician Relationship Specialty Start Date End Date Stas Mora MD [address] [facility] [place] [address] PCP - General 08/02/08, Pharmacist [address] [place] [address] Pharmacist Pharmacy 10/19/19 Powerhouse Electrician Relationship Specialty Start Date End Date Stas Mora MD [address] [facility] [place] [address] PCP - General 08/02/08, Pharmacist [address] [place] [address] Pharmacist Pharmacy 10/19/19 Powerhouse Electrician Relationship Specialty Start Date End Date Stas Mora MD [address] [place] [address] PCP - General 08/02/08, Pharmacist [address] [place] [address] Pharmacist Pharmacy 10/19/19 Powerhouse Electrician Relationship Specialty Start Date End Date Stas Mora MD [address] [place] [address] PCP - General 08/02/08, Pharmacist [address] [place] [address] Pharmacist Pharmacy 10/19/19 Powerhouse Electrician Relationship Specialty Start Date End Date Stas Mora MD [address] [place] [address] PCP - General 08/02/08, Pharmacist [address] [place] [address] Pharmacist Pharmacy 10/19/19 Powerhouse Electrician Relationship Specialty Start Date End Date Stas Mora MD [address] [place] [address] PCP - General 08/02/08, Pharmacist [address] [place] [address] Pharmacist Pharmacy 10/19/19 Team Status: Active Member Role Status Dates Dr. Stas Mora MD Family Provider Active Dr. Stas Mora MD Primary Care Provider Active Team Status: Inactive Member Role Status Dates Dr. Stas Mora MD Primary Care Provider Active Dr. Brian Cunningham , DO Emergency Provider Active Powerhouse Electrician Relationship Specialty Start Date End Date Stas Mora MD [address] [facility] [place] [address] PCP - General 08/02/08, Pharmacist [address] [place] [address] Pharmacist Pharmacy 10/19/19 Powerhouse Electrician Relationship Specialty Start Date End Date Stas Mora MD [address] [facility] [place] [address] PCP - General 08/02/08, Pharmacist [address] [place] [address] Pharmacist Pharmacy 10/19/19 Powerhouse Electrician Relationship Specialty Start Date End Date Stas Mora MD [address] [place] [address] PCP - General 08/02/08, Pharmacist [address] [place] [address] Pharmacist Pharmacy 10/19/19 Powerhouse Electrician Relationship Specialty Start Date End Date Stas Mora MD [address] [place] [address] PCP - General 08/02/08, Pharmacist [address] [place] [address] Pharmacist Pharmacy 10/19/19 Powerhouse Electrician Relationship Specialty Start Date End Date Stas Mora MD [address] [facility] [place] [address] PCP - General 08/02/08, Pharmacist [address] [place] [address] Pharmacist Pharmacy 10/19/19 Powerhouse Electrician Relationship Specialty Start Date End Date Stas Mora MD [address] [place] [address] PCP - General 08/02/08, Pharmacist [address] [place] [address] Pharmacist Pharmacy 10/19/19 Powerhouse Electrician Relationship Specialty Start Date End Date Stas Mora MD [address] [place] [address] PCP - General 08/02/08, Pharmacist [address] [place] [address] Pharmacist Pharmacy 10/19/19 Powerhouse Electrician Relationship Specialty Start Date End Date Stas Mora MD [address] [place] [address] PCP - General 08/02/08, Pharmacist [address] [place] [address] Pharmacist Pharmacy 10/19/19 Powerhouse Electrician Relationship Specialty Start Date End Date Stas Mora MD [address] [place] [address] PCP - General 08/02/08, Pharmacist [address] [place] [address] Pharmacist Pharmacy 10/19/19 Powerhouse Electrician Relationship Specialty Start Date End Date Stas Mora MD [address] [facility] [place] [address] PCP - General 08/02/08, Pharmacist [address] [place] [address] Pharmacist Pharmacy 10/19/19 Powerhouse Electrician Relationship Specialty Start Date End Date Stas Mora MD [address] [facility] [place] [address] PCP - General 08/02/08, Pharmacist [address] [place] [address] Pharmacist Pharmacy 10/19/19 Powerhouse Electrician Relationship Specialty Start Date End Date Stas Mora MD [address] [facility] [place] [address] PCP - General 08/02/08, Pharmacist [address] [place] [address] Pharmacist Pharmacy 10/19/19 Powerhouse Electrician Relationship Specialty Start Date End Date Stas Mora MD [address] [place] [address] PCP - General 08/02/08, Pharmacist [address] [place] [address] Pharmacist Pharmacy 10/19/19 Powerhouse Electrician Relationship Specialty Start Date End Date Stas Mora MD [address] [place] [address] PCP - General 08/02/08, Pharmacist [address] [place] [address] Pharmacist Pharmacy 10/19/19 Powerhouse Electrician Relationship Specialty Start Date End Date Stas Mora MD [address] [place] [address] PCP - General 08/02/08, Pharmacist [address] [place] [address] Pharmacist Pharmacy 10/19/19 Powerhouse Electrician Relationship Specialty Start Date End Date Stas Mora MD [address] [place] [address] PCP - General 08/02/08, Pharmacist [address] [place] [address] Pharmacist Pharmacy 10/19/19 Powerhouse Electrician Relationship Specialty Start Date End Date Stas Mora MD [address] [facility] [place] [address] PCP - General 08/02/08, Pharmacist [address] [place] [address] Pharmacist Pharmacy 10/19/19 Powerhouse Electrician Relationship Specialty Start Date End Date Stas Mora MD [address] [place] [address] PCP - General 08/02/08, Pharmacist [address] [place] [address] Pharmacist Pharmacy 10/19/19 Powerhouse Electrician Relationship Specialty Start Date End Date Stas Mora MD [address] [place] [address] PCP - General 08/02/08, Pharmacist [address] [place] [address] Pharmacist Pharmacy 10/19/19 Powerhouse Electrician Relationship Specialty Start Date End Date Stas Mora MD [address] [place] [address] PCP - General 08/02/08, Pharmacist [address] [place] [address] Pharmacist Pharmacy 10/19/19 Powerhouse Electrician Relationship Specialty Start Date End Date Stas Mora MD [address] [place] [address] PCP - General 08/02/08, Pharmacist [address] [place] [address] Pharmacist Pharmacy 10/19/19 Powerhouse Electrician Relationship Specialty Start Date End Date Stas Mora MD [address] [place] [address] PCP - General 08/02/08, Pharmacist [address] [place] [address] Pharmacist Pharmacy 10/19/19 Jenna Fitzpatrick APRN.LEAD SYSTEMS DEVELOPER [address] [place] [address] Motor Checker [facility] 02/28/24 Powerhouse Electrician Relationship Specialty Start Date End Date Stas Mora MD [address] [place] [address] PCP - General 08/02/08, Pharmacist [address] [place] [address] Pharmacist Pharmacy 10/19/19 Jenna Fitzpatrick APRN.LEAD SYSTEMS DEVELOPER [address] [place] [address] Motor Checker [facility] 02/28/24 Elvis Kearney APRN.LEAD SYSTEMS DEVELOPER [address] [place] [address] Motor Checker [facility] 03/08/24 Powerhouse Electrician Relationship Specialty Start Date End Date Stas Mora MD [address] [place] [address] PCP - General 08/02/08, Pharmacist [address] [place] [address] Pharmacist Pharmacy 10/19/19 Jenna Fitzpatrick APRN.LEAD SYSTEMS DEVELOPER [address] [place] [address] Motor Check[facility] 02/28/24 Elvis Kearney APRN.LEAD SYSTEMS DEVELOPER [address] [facility] [place] [address] Motor Checker [facility] 03/08/24 Powerhouse Electrician Relationship Specialty Start Date End Date Stas Mora MD [address] [place] [address] PCP - General 08/02/08, Pharmacist [address] [place] [address] Pharmacist Pharmacy 10/19/19 Jenna Fitzpatrick APRN.LEAD SYSTEMS DEVELOPER [address] [place] [address] Motor Check[facility] 02/28/24 Elvis Kearney APRN.LEAD SYSTEMS DEVELOPER [address] [place] [address] Motor Checker [facility] 03/08/24 Powerhouse Electrician Relationship Specialty Start Date End Date Stas Mora MD [address] [place] [address] PCP - General 08/02/08, Pharmacist [address] [place] [address] Pharmacist Pharmacy 10/19/19 Jenna Fitzpatrick DECK ENGINEER.LEAD SYSTEMS DEVELOPER [address] [place] [address] Motor [facility] 02/28/24 Elvis Kearney APRN.LEAD SYSTEMS DEVELOPER [address] [place] [address] Motor Checker [facility] 03/08/24 Powerhouse Electrician Relationship Specialty Start Date End Date Stas Mora MD [address] [place] [address] PCP - General 08/02/08, Pharmacist [address] [place] [address] Pharmacist Pharmacy 10/19/19 Jenna Fitzpatrick APRN.LEAD SYSTEMS DEVELOPER [address] [place] [address] Motor Checker [facility] 02/28/24 Elvis Kearney APRN.LEAD SYSTEMS DEVELOPER [address] [place] [address] [facility]/24 Powerhouse Electrician Relationship Specialty Start Date End Date Stas Mora MD [address] [place] [address] PCP - General 08/02/08, Pharmacist [address] [place] [address] Pharmacist Pharmacy 10/19/19 Jenna Fitzpatrick APRN.LEAD SYSTEMS DEVELOPER [address] [place] [address] [facility] 02/28/24 Elvis Kearney APRN.LEAD SYSTEMS DEVELOPER [address] [place] [address] Motor Checker [facility] Medicine 03/08/24 Powerhouse Electrician Relationship Specialty Start Date End Date Stas Mora MD [address] [place] [address] PCP - General 08/02/08, Pharmacist [id number] [place] [address] Pharmacist Pharmacy 10/19/19 Jenna Fitzpatrick APRN.LEAD SYSTEMS DEVELOPER [address] [place] [address] [facility] 02/28/24 Elvis Kearney APRN.LEAD SYSTEMS DEVELOPER [address] [place] [address] Motor Checker Family [facility] 03/08/24 Powerhouse Electrician Relationship Specialty Start Date End Date Stas Mora MD [address] [place] [address] PCP - General 08/02/08, Pharmacist [address] [place] [address] Pharmacist Pharmacy 10/19/19 Jenna Fitzpatrick APRN.LEAD SYSTEMS DEVELOPER [address] [place] [address] Motor Checker [facility] 02/28/24 Elvis Kearney APRN.LEAD SYSTEMS DEVELOPER [address] [place] [address] [facility] 03/08/24 Powerhouse Electrician Relationship Specialty Start Date End Date Stas Mora MD [address] [place] [address] PCP - General 08/02/08, Pharmacist [address] [place] [address] Pharmacist Pharmacy 10/19/19 Jenna Fitzpatrick APRN.LEAD SYSTEMS DEVELOPER [address] [place] [address] [facility] Family [facility] 02/28/24 Elvis Kearney APRN.LEAD SYSTEMS DEVELOPER [address] [place] [address] Motor Checker Family Medicine 03/08/24 Powerhouse Electrician Relationship Specialty Start Date End Date Stas Mora MD [address] [place] [address] PCP - General 08/02/08, Pharmacist [address] [place] [address] Pharmacist Pharmacy 10/19/19 Jenna Fitzpatrick DECK ENGINEER.LEAD SYSTEMS DEVELOPER [address] [place] [address] [facility] 02/28/24 Elvis Kearney APRN.LEAD SYSTEMS DEVELOPER [address] [place] [address] Motor Checker [facility] 03/08/24 Powerhouse Electrician Relationship Specialty Start Date End Date Stas Mora MD [address] [place] [address] PCP - General 08/02/08, Pharmacist [address] [place] [address] Pharmacist Pharmacy 10/19/19 Jenna Fitzpatrick, DECK ENGINEER.LEAD SYSTEMS DEVELOPER [address] [place] [address] [facility] 02/28/24 Elvis Kearney APRN.LEAD SYSTEMS DEVELOPER [address] [place] [address] [facility] 03/08/24 Powerhouse Electrician Relationship Specialty Start Date End Date Stas Mora MD [address] [place] [address] PCP - General 08/02/08, Pharmacist [address] [place] [address] Pharmacist Pharmacy 10/19/19 Jenna Fitzpatrick APRN.LEAD SYSTEMS DEVELOPER [address] [place] [address] Motor Checker Family [facility] 02/28/24 Elvis Kearney DECK ENGINEER.LEAD SYSTEMS DEVELOPER [address] [place] [address] [facility] 03/08/24 Powerhouse Electrician Relationship Specialty Start Date End Date Stas Mora MD [address] [place] [address] PCP - General 08/02/08, Pharmacist [address] [place] [address] Pharmacist Pharmacy 10/19/19 Jenna Fitzpatrick DECK ENGINEER.LEAD SYSTEMS DEVELOPER [address] [place] [address] [facility] 02/28/24 Elvis Kearney DECK ENGINEER.LEAD SYSTEMS DEVELOPER [address] [place] [address] [facility] 03/08/24 Powerhouse Electrician Relationship Specialty Start Date End Date Stas Mora MD [address] [place] [address] PCP - General 08/02/08, Pharmacist [address] [place] [address] Pharmacist Pharmacy 10/19/19 Jenna Fitzpatrick, DECK ENGINEER.LEAD SYSTEMS DEVELOPER [address] [place] [address] [facility] 02/28/24 Elvis Kearney APRN.LEAD SYSTEMS DEVELOPER [address] [place] [address] [facility] 03/08/24 Powerhouse Electrician Relationship Specialty Start Date End Date Stas Mora MD [address] [place] [address] PCP - General 08/02/08, Pharmacist [address] [place] [address] Pharmacist Pharmacy 10/19/19 Jenna Fitzpatrick APRN.LEAD SYSTEMS DEVELOPER [address] [place] [address] [facility] 02/28/24 Elvis Kearney DECK ENGINEER.LEAD SYSTEMS DEVELOPER [address] [place] [address] Motor Checker Family [facility] 03/08/24 Powerhouse Electrician Relationship Specialty Start Date End Date Stas Mora MD [address] [place] [address] PCP - General 08/02/08, Pharmacist [address] [place] [address] Pharmacist Pharmacy 10/19/19 Jenna Fitzpatrick DECK ENGINEER.LEAD SYSTEMS DEVELOPER [address] [place] [address] [facility] 02/28/24 Elvis Kearney APRN.LEAD SYSTEMS DEVELOPER [address] [place] [address] [facility] 03/08/24 Powerhouse Electrician Relationship Specialty Start Date End Date Stas Mora MD [address] [place] [address] PCP - General 08/02/08, Pharmacist [address] [place] [address] Pharmacist Pharmacy 10/19/19 Elvis Kearney APRN.LEAD SYSTEMS DEVELOPER [address] [place] [address] [facility] 03/08/24 Powerhouse Electrician Relationship Specialty Start Date End Date Stas Mora MD [address] [place] [address] PCP - General 08/02/08, Pharmacist [address] [place] [address] Pharmacist Pharmacy 10/19/19 Elvis Kearney APRN.LEAD SYSTEMS DEVELOPER [address] [place] [address] [facility] 03/08/24 Team Status: Active Member Role [...] Provider Active Sta rt: September 06, 2024 Powerhouse Electrician Relationship Specialty Start Date End Date Stas Mora MD [address] [place], [place] [id number] PCP - General 08/02/08 13, Pharmacist [address] [place], [place] [id number] Pharmacist Pharmacy 10/19/19 Elvis Kearney APRN.CNP [address] [place], [place] [address] [facility] 03/08/24 Team Status: Active Member [...] 2024 End: September 07, 2024 Halina Carmona FRESH FOODS CLERK, FRESH FOODS CLERK-C Attending Provider Active Start: September 07, 2024 [...] 2024 End: September 08, 2024 Halina Carmona FRESH FOODS CLERK, FRESH FOODS CLERK-C Attending Provider Active Start: September 08, 2024 [...] End: September 30, 2024 Halina Carmona NP FRESH FOODS CLERK-C Attending Provider Active Start: September 30, 2024 [...] 2024 End: October 20, 2024 Halina Carmona FRESH FOODS CLERK, FRESH FOODS CLERK-C Attending Provider Active Start: October 20, 2024 [...] 2024 End: September 30, 2024 Halina Carmona FRESH FOODS CLERK, FRESH FOODS CLERK-C Attending Provider Active Start: September 30, 2024 [...] 2024 End: October 20, 2024 Halina Carmona FRESH FOODS CLERK, FRESH FOODS CLERK-C Attending Provider Active Start: October 20, 2024 [...] 2024 End: September 30, 2024 Halina Carmona FRESH FOODS CLERK, FRESH FOODS CLERK-C Attending physician Active Start: September 30, 2024 [...] End: October 20, 2024 Halina Carmona NP, FRESH FOODS CLERK-C Attending physician Active Start: October 20, 2024 [...] End: November 24, 2024 Halina Carmona NP FRESH FOODS CLERK-C Attending physician Active Start: November 24, 2024 End: November 24, 2024 Team Status: Active Member Role/Relationship Status Dates Dr. Stas Mora MD Primary care physician Active Start: November 25, 2024 Shayy GMAA MD Attending physician Active Start: November 25, [...] BE BASED ON THE PRIMARY CLINICAL RECORDS. [employer] provides no warranty or guarantee of the accuracy or completeness of information in this document.
[2025-02-22 07:35] LABS: Hematocrit 37.8 % (40-54); Hemoglobin 12.0 g/dL (13.0-16.5); Immature Granulocytes Count 0.120 X10^3/uL (0.0-0.0); Mean Corp Hgb Conc 31.7 g/dL (32-36); Mean Corpuscular Volume 85.7 fL (80-94); Mean Platelet Vol. 9.9 fl (6.2-12.0); NRBC Flagged by Analyzer 0 % (0-5); Platelet Count 282 K/mm3 (150-450); RBC Distribution Width CV 16.4 % (11.6-14.6); RBC Distribution Width SD 51.4 fl (35.1-43.9); Red Blood Count 4.41 M/mm3 (4.6-6.2); White Blood Count 20.7 K/mm3 (4.4-11.0)
[2025-02-22 07:46] LABS: Anion Gap 13 (5-15); BUN 30 mg/dL (4-19); BUN/Creat Ratio 42.5 RATIO (10-20); Calcium,Total 8.6 mg/dL (7.6-11.0); Carbon Dioxide 24.3 mmol/L (21.0-32.0); Chloride 104 mmol/L (98-108); Glucose 133 mg/dL (70-99); Potassium 3.6 mmol/L (3.3-5.1)
== END ==
LOC: OLS.WHLCAR 05:00
PROVIDERS: PCP Family Medicine; Visit Provider Internal Medicine
DX: I48.91 Unspecified atrial fibrillation (principal); I10 Essential (primary) hypertension; I25.10 Atherosclerotic heart disease of native coronary artery without angina pectoris
CPT/HCPCS: 36415; 80048; 85025

== ENCOUNTER → 2025-02-24 | Outpatient (REF) | payer MEDICARE, SELFPAY ==
--- OUTSIDE RECORDS SUMMARY | 2025-02-24 04:40 | XMS RPT_ITS | CCD ---
Author Organization [facility] Inform ion Partnership [facility] Care Team Providers Care Crankshaft Balancer Name Role Phone TEE, DARRELL E Unavailable [...] Dr. Dirk Us Attending Provider Dr. Dirk sU Other Provider Dr. Spike Preston Attending Provider Dr. Spike Preston Other Provider Stas Mora MD Primary Care Provider [phone], Pharmacist Unavailable PHYSICIAN, NONE Primary Care Physician Unavailab Stas Menjivar MD Primary Care Provider PAYTON IBANEZ DO Attending Unavailable PHYSICIAN, NONE Primary Care Unavailable PHYSICIAN, NONE Primary Care Unavailable STERLING LYNCH DO Attending Unavailable Tannhof STRAPPER.ASSOCIATE PROFESSOR OF MUSICOLOGY, Jenna Unavailable Caio STRAPPER.ASSOCIATE PROFESSOR OF MUSICOLOGY, Elvis Unavailable LUCIANA CISNEROS Referring Unavailable STAS MORA Primary Care Unavailable Tannhof STRAPPER.ASSOCIATE PROFESSOR OF MUSICOLOGY, Jenna Unavailable Unavail able Tannhof STRAPPER.ASSOCIATE PROFESSOR OF MUSICOLOGY, Jenna Unavailable Morgan POLANCO, Dr. Ruiz Primary Care Provider [phone] Jose Miguel POLANCO, Dr. Jansen Emergency Provider [...] Curtis MD, Dr. Lucas Attending Physician Kristine LABORER TIN CAN-CHalina Attending Physician Oleghe OLS, Efewongbe Attending Unavailabl [...] Oleghe OLS, Efewongbe Attending Unavailabl e Tickton LABORER TIN CAN, Halina Attending Unavailable Elderbrock, Stas Primary Care Unavailable Tickton LABORER TIN CAN, Halina Attending Unavailable Elderbrock, Stas Primary Care Unavailable Tickton LABORER TIN CAN, Halina Attending Unavailable Elderbrock, Stas Primary Care Unavailable Tickton LABORER TIN CAN, Halina Attending Unavailable Elderbrock, Stas Primary Care Unavailable Koram, Kathy Monisha Consulting Unavailable Koram, Kathy Monisha Attending Unavailable Koram, Kathy Monisha Admitting Unavailable Elderbrock, Stas Primary Care Unavailable Kathy Wells Attending Unavailable Kristine LABORER TIN CAN, Halina Attending Unavailable Elderbrock, Stas Primary Care Unavailable Elderbrock, Stas Primary Care Unavailable Oleghe, Efewongbe Attending Unavailable Elderbrock, Stas Primary Care Unavailable Oleghe, Efewongbe Attending Unavailable Elderbrock, Stas Primary Care Unavailable Oleghe, Efewongbe Attending Unavailable Elderbrock, Stas Primary Care Unavailable Kristine SNELL, Halina Attending Unavailable Cj Barrientos Attending Unavailable Elderbrock, Stas Primary Care Unavailable Elderbrock, Tsas Primary Care Unavailable Oleghe OLS, Efewongbe Attending [...] unspecified vessel or lesion type, unspecified whether [place] or transplanted heart Take 1 tablet by [...] hydrochloride 10 mg oral tablet (20 sources) C-ckkbbz-Q-aspartate Receptor Antagonist Start: 06-02-19 End: 11-29-19 take 1 tablet by mouth twice daily metoprolol tartrate 50 mg oral tablet (1 source) beta-Adrenergic Jazmin Start: 01-02-20 Lopressor 50 mg oral tablet Dose : 25 mg = 0.5 tab(s), PO, BID, 0 Refill(s), current med (Hx) Start Date: 01/01/06 Status: Ordered polyethylene glycol 3350 [id number] mg powder for oral solution (12 sources) [...] on above: Take 1 capsule by mo [facility] daily at bedtime. vardenafil 10 [...] disease (20 sources) Atherosclerotic heart disease of [place] coronary artery without angina pectoris; Translations: [Coronary [...] sources) Long-term current use of anticoagulant; Translations: [alf (current) use of anticoagulants] Onset: 09-22-2016 Episodic [...] 04-24-2011 04-24-2011 Episodic Other aftercare (3 sources) alf (current) use of anticoagulants; Translations: [Long-term (current) [...] Test Name Value Interpretation Reference Range Facility [facility] 01-19-2025 [facility] Letter Text Normal [facility] normalized rat io (INR) measurement by fingerstickOrdered By: Shayy Curtis on 01-10-2025 INR Coag (BldC) [Relative time] 1.9 [facility] Comment on above: Critical Value > 4.0 Whole blood prothrombin time Ordered By: Shayy Curtis on 01-10-2025 PT Coag (Bld) [Time] 21.0 s High 11.7-14.9 [facility] Absolute lymphocyte countOrd ered By: Shayy Curtis on 12-21-2024 Lymphocytes Auto (Unsp spec) [#/Vol] 1.31 10*3/uL 0.83-4.51 [facility] Absolute neutrophil countOrd ered By: Shayy Curtis on 12-21-2024 Neutrophils (Bld) [#/Vol] 3.6 10*3/uL 2.0-7.7 [facility] Anion gap in Serum or Plasma Ordered By: Shayy Curtis on 12-21-2024 Anion gap [Moles/Vol] 9 mmol/L 5-15 [facility] Automated lymphocyte count a s percentage of total leukocytesOrdered By: Shayy Curtis on 12-21-2024 Lymphocytes/100 WBC Auto (Unsp spec) 23.0 % 19-41 [facility] BUN/creatinine ratioOrdered By: Shayy Curtis on 12-21-2024 Urea nitrogen/Creatinine [Mass ratio] 32.5 mg/mg High 10-20 [facility] Basophil percentageOrdered B y: Shayy Curtis on 12-21-2024 Basophils/100 WBC (Bld) 0.7 % 0-1 [facility] Carbon dioxide, total [Moles /volume] in Central venous bloodOrdered By: Shayy Curtis on 12-21-2024 CO2 [Moles/Vol] 25.8 mmol/L 21.0-32.0 [facility] Chloride assayOrdered By: Hung Curtis on 12-21-2024 Chloride [Moles/Vol] 107 mmol/L 98-108 [facility] Eosinophil percentageOrdered By: Shayy Curtis on 12-21-2024 Eosinophils/100 WBC (Bld) 2.3 % 0-5 [facility] Erythrocyte distribution wid th ratioOrdered By: Shayy Curtis on 12-21-2024 Erythrocyte distribution width (RBC) [Ratio] 15.9 % High 11.6-14.6 [facility] Erythrocyte distribution wid th standard deviationOrdered By: Shayy Curtis on 12-21-2024 Erythrocyte distribution width (RBC) [Ratio] 49.5 fl High 35.1-43.9 [facility] Glomerular filtration rate ( GFR) estimation/1.73 sq m using serum, plasma, or whole bOrdered By: Shayy Curtis on 12-21-2024 GFR/1.73 sq M.predicted among non-blacks MDRD (S/P/Bld) [Vol rate/Area] 90 mL/min/{1.73_m2} >60 [facility] Comment on above: mL/min/1.73m2 CKD-EP I Creatinine Equation (2020) Hematocrit Auto (Bld) [Volum e fraction]Ordered By: Shayy Curtis on 12-21-2024 Hematocrit (Bld) [Volume fraction] 34.9 % Low 40-54 [facility] Hemoglobin measurementOrdere d By: Shayy Curtis on 12-21-2024 Hemoglobin (Bld) [Mass/Vol] 10.6 g/dL Low 13.0-16.5 [facility] Immature granulocytes/100 WB C Auto (Bld)Ordered By: Shayy Curtis on 12-21-2024 Immature granulocytes/100 WBC (Bld) 0.200 % 0.0-0.9 [facility] Comment on above: IG% - Immature Granu locytes (promyelocytes, myelocytes and metamyelocytes) > 1% indicates that a LEFT SHIFT is Present. MCV (mean corpuscular volume ) determinationOrdered By: Shayy Curtis on 12-21-2024 MCV (RBC) [Entitic vol] 84.5 fL 80-94 [facility] Mean corpuscular hemoglobin (MCH) determinationOrdered By: baldomero Curtis on 12-21-2024 MCH (RBC) [Entitic mass] 25.7 pg Low 27.0-32.0 [facility] Mean corpuscular hemoglobin concentration (MCHC) determinationOrdered By: Shayy Curtis on 12-21-2024 MCHC (RBC) [Mass/Vol] 30.4 g/dL Low 32-36 [facility] Mean platelet volume determi nationOrdered By: Shayy Curtis on 12-21-2024 Platelet mean volume (Bld) [Entitic vol] 10.9 fL 6.2-12.0 [facility] Monocyte percentageOrdered B y: Shayy Curtis on 12-21-2024 Monocytes/100 WBC (Bld) 10.5 % High 0-10 [facility] Neutrophil percentageOrdered By: Shayy Curtis on 12-21-2024 Neutrophils/100 WBC (Bld) 63.3 % 47-70 [facility] Nucleated red blood cell per centageOrdered By: Shayy Curtis on 12-21-2024 Nucleated RBC/100 WBC (Bld) [Ratio] 0 % 0-5 [facility] Platelet countOrdered By: Hung Curtis on 12-21-2024 Platelets (Bld) [#/Vol] 217 10*3/uL 150-450 [facility] Potassium measurement (mass/ volume)Ordered By: Shayy Curtis on 12-21-2024 Potassium (Unsp spec) [Mass/Vol] 3.8 mmol/L 3.3-5.1 [facility] RBC Auto (Bld) [#/Vol]Ordere d By: Shayy Curtis on 12-21-2024 RBC (Bld) [#/Vol] 4.13 10*6/uL Low 4.6-6.2 [facility] Serum creatinine measurement (mass/volume)Ordered By: Shayy Curtis on 12-21-2024 Creatinine [Mass/Vol] 0.66 mg/dL Low 0.70-1.20 [facility] Serum glucose measurement (m ass/volume)Ordered By: Shayy Curtis on 12-21-2024 Glucose [Mass/Vol] 86 mg/dL 70-99 [facility] Serum or plasma calcium alvaro urement (mass/volume)Ordered By: Shayy Curtis on 12-21-2024 Calcium [Mass/Vol] 8.6 mg/dL 7.6-11.0 [facility] Serum or plasma urea nitroge n measurement (mass/volume)Ordered By: Shayy Curtis on 12-21-2024 Urea nitrogen [Mass/Vol] 22 mg/dL High 4-19 [facility] Sodium levelOrdered By: Latrice Curtis on 12-21-2024 Sodium [Moles/Vol] 142 mmol/L 133-145 [facility] White blood cell (WBC) count Ordered By: Shayy Curtis on 12-21-2024 WBC (Bld) [#/Vol] 5.7 10*3/uL 4.4-11.0 [facility] normalized rat io (INR) calculationOrdered By: Shayy Curtis on 12-14-2024 INR Coag (Bld) [Relative time] 2.5 {INR} [facility] Prothrombin timeOrdered By: Shayy Curtis on 12-14-2024 PT Coag (PPP) [Time] 27.6 s High 11.7-14.9 [facility] normalized rat io (INR) measurement by fingerstickOrdered By: Shayy Curtis on 11-30-2024 INR Coag (BldC) [Relative time] 2.0 [facility] Comment on above: Critical Value > 4.0 Whole blood prothrombin time Ordered By: Shayy Curtis on 11-30-2024 PT Coag (Bld) [Time] 22.0 s High 11.7-14.9 [facility] Bilirubin directOrdered By: Shayy Curtis on 11-25-2024 Bilirubin.direct [Mass/Vol] 0.32 mg/dL High 0.00-0.30 [facility] Bilirubin, totalOrdered By: Shayy Curtis on 11-25-2024 Bilirubin [Mass/Vol] 0.63 mg/dL 0.00-1.30 [facility] Calculated very low density lipoprotein (VLDL) cholesterol measurementOrdered By: Shayy Curtis on 11-25-2024 Calculated very low density lipoprotein (VLDL) cholesterol measurement 10 mg/dL 5-40 [facility] LDL calc ser/plasOrdered By: Shayy Curtis on 11-25-2024 Cholesterol in LDL [Mass/Vol] 41 mg/dL [facility] Comment on above: Ccxhcjjsmr=977-599 m g/dL & Higher Hauy=808 mg/dL or greaterFriedwald Equation for LDL-C Laboratory - Chemistry and C hemistry - challengeOrdered By: Shayy Curtis on 11-25-2024 AST [Catalytic activity/Vol] 24 U/L <38 [facility] Screening total cholesterol/ high density lipoprotein (HDL) cholesterol ratioOrdered By: Shayy Curtis on 11-25-2024 Cholesterol.total/Cho lesterol in HDL [Mass ratio] 2.59 {ratio} [facility] Serum globulin measurementOr dered By: Shayy Curtis on 11-25-2024 Globulin (S) [Mass/Vol] 2.3 g/dL 2.2-4.2 [facility] Serum or plasma alanine franks otransferase (ALT) measurementOrdered By: Shayy Curtis on 11-25-2024 ALT [Catalytic activity/Vol] 19 U/L <47 [facility] Serum or plasma albumin alvaro urement (mass/volume)Ordered By: Shayy Curtis on 11-25-2024 Albumin [Mass/Vol] 3.6 g/dL 3.4-4.8 [facility] Serum or plasma alkaline carole sphatase measurementOrdered By: Shayy Curtis on 11-25-2024 ALP [Catalytic activity/Vol] 119 U/L 40-129 [facility] Serum or plasma cholesterol in HDL measurement (mass/volume)Ordered By: Shayy Curtis on 11-25-2024 Cholesterol in HDL [Mass/Vol] 32 mg/dL Low >40 [facility] Comment on above: National Cholesterol Education Program (NCEP) guidelines:<40 mg/dL: Low HDL-cholesterol (major risk factor for CHD)>= 60 mg/dL: High HDL-cholesterol (negative risk factor for CHD)HDL-cholesterol is affected by a number of factors, e.g. smoking, exercise, hormones, sex and age. Serum or plasma cholesterol measurement (mass/volume)Ordered By: Shayy Curtis on 11-25-2024 Cholesterol [Mass/Vol] 83 mg/dL <201 [facility] Comment on above: Cholesterol level, D esirable <200 mg/dLBorderline high cholesterol 200-239 mg/dLHigh cholesterol >=240 mg/dLRecommendations of the NCEP Adult Treatment Panel for the following risk-cutoff thresholds for the [place] population. Total proteinOrdered By: Yazan Curtis on 11-25-2024 Protein [Mass/Vol] 5.8 g/dL Low 5.9-8.4 [facility] Triglycerides measurementOrd ered By: Shayy Curtis on 11-25-2024 Triglyceride [Mass/Vol] 49 mg/dL <199 [facility] Comment on above: The drugs N-Acetylcy steine and Metamizole may falsely depress this assay. Normal range: <150 mg/dLBorderline High: 150-199 mg/dLHigh: 200-499 mg/dLVery High: >500 mg/dL Absolute lymphocyte countOrd ered By: Shayy Curtis on 11-23-2024 Lymphocytes Auto (Unsp spec) [#/Vol] 1.15 10*3/uL 0.83-4.51 [facility] Absolute neutrophil countOrd ered By: Shayy Curtis on 11-23-2024 Neutrophils (Bld) [#/Vol] 4.4 10*3/uL 2.0-7.7 [facility] Anion gap in Serum or Plasma Ordered By: Shayy Curtis on 11-23-2024 Anion gap [Moles/Vol] 10 mmol/L 5-15 [facility] Automated lymphocyte count a s percentage of total leukocytesOrdered By: Shayy Curtis on 11-23-2024 Lymphocytes/100 WBC Auto (Unsp spec) 17.5 % Low 19-41 [facility] BUN/creatinine ratioOrdered By: Shayy Curtis on 11-23-2024 Urea nitrogen/Creatinine [Mass ratio] 23.9 mg/mg High 10-20 [facility] Basophil percentageOrdered B y: Shayy Curtis on 11-23-2024 Basophils/100 WBC (Bld) 0.9 % 0-1 [facility] Carbon dioxide, total [Moles /volume] in Central venous bloodOrdered By: Shayy Curtis on 11-23-2024 CO2 [Moles/Vol] 23.5 mmol/L 21.0-32.0 [facility] Chloride assayOrdered By: Hung Curtis on 11-23-2024 Chloride [Moles/Vol] 105 mmol/L 98-108 [facility] Eosinophil percentageOrdered By: baldomero Curtis on 11-23-2024 Eosinophils/100 WBC (Bld) 2.9 % 0-5 [facility] Erythrocyte distribution wid th ratioOrdered By: Shayy Curtis on 11-23-2024 Erythrocyte distribution width (RBC) [Ratio] 16.9 % High 11.6-14.6 [facility] Erythrocyte distribution wid th standard deviationOrdered By: Shayy Curtis on 11-23-2024 Erythrocyte distribution width (RBC) [Ratio] 50.4 fl High 35.1-43.9 [facility] Glomerular filtration rate ( GFR) estimation/1.73 sq m using serum, plasma, or whole bOrdered By: Shayy Curtis on 11-23-2024 GFR/1.73 sq M.predicted among non-blacks MDRD (S/P/Bld) [Vol rate/Area] 90 mL/min/{1.73_m2} >60 [facility] Comment on above: mL/min/1.73m2 CKD-EP I Creatinine Equation (2020) Hematocrit Auto (Bld) [Volum e fraction]Ordered By: Shayy Curtis on 11-23-2024 Hematocrit (Bld) [Volume fraction] 36.3 % Low 40-54 [facility] Hemoglobin measurementOrdere d By: Shayy Curtis on 11-23-2024 Hemoglobin (Bld) [Mass/Vol] 11.6 g/dL Low 13.0-16.5 [facility] Immature granulocytes/100 WB C Auto (Bld)Ordered By: Shayy Curtis 11-23-2024 Immature granulocytes/100 WBC (Bld) 0.300 % 0.0-0.9 [facility] Comment on above: IG% - Immature Granu locytes (promyelocytes, myelocytes and metamyelocytes) > 1% indicates that a LEFT SHIFT is Present. International normalized rat io (INR) calculationOrdered By: Shayy Curtis on 11-23-2024 INR Coag (Bld) [Relative time] 1.5 {INR} [facility] MCV (mean corpuscular volume ) determinationOrdered By: Shayy Curtis 11-23-2024 MCV (RBC) [Entitic vol] 82.1 fL 80-94 [facility] Mean corpuscular hemoglobin (MCH) determinationOrdered By: Shayy Curtis on 11-23-2024 MCH (RBC) [Entitic mass] 26.2 pg Low 27.0-32.0 [facility] Mean corpuscular hemoglobin concentration (MCHC) determinationOrdered By: Shayy Curtis on 11-23-2024 MCHC (RBC) [Mass/Vol] 32.0 g/dL 32-36 [facility] Mean platelet volume determi nationOrdered By: Shayy Curtis on 11-23-2024 Platelet mean volume (Bld) [Entitic vol] 10.0 fL 6.2-12.0 [facility] Monocyte percentageOrdered B y: Shayy Curtis on 11-23-2024 Monocytes/100 WBC (Bld) 11.3 % High 0-10 [facility] Neutrophil percentageOrdered By: Shayy Curtis on 11-23-2024 Neutrophils/100 WBC (Bld) 67.1 % 47-70 [facility] Nucleated red blood cell per centageOrdered By: Shayy Curtis on 11-23-2024 Nucleated RBC/100 WBC (Bld) [Ratio] 0 % 0-5 [facility] Platelet countOrdered By: Hung Curtis on 11-23-2024 Platelets (Bld) [#/Vol] 245 10*3/uL 150-450 [facility] Potassium measurement (mass/ volume)Ordered By: Shayy Curtis on 11-23-2024 Potassium (Unsp spec) [Mass/Vol] 4.0 mmol/L 3.3-5.1 [facility] Prothrombin timeOrdered By: Shayy Curtis on 11-23-2024 PT Coag (PPP) [Time] 17.9 s High 11.7-14.9 [facility] RBC Auto (Bld) [#/Vol]Ordere d By: Shayy Curtis on 11-23-2024 RBC (Bld) [#/Vol] 4.42 10*6/uL Low 4.6-6.2 [facility] Serum creatinine measurement (mass/volume)Ordered By: Shayy Curtis on 11-23-2024 Creatinine [Mass/Vol] 0.65 mg/dL Low 0.70-1.20 [facility] Serum glucose measurement (m ass/volume)Ordered By: Shayy Curtis on 11-23-2024 Glucose [Mass/Vol] 103 mg/dL High 70-99 [facility] Serum or plasma calcium alvaro urement (mass/volume)Ordered By: Shayy Curtis on 11-23-2024 Calcium [Mass/Vol] 8.9 mg/dL 7.6-11.0 [facility] Serum or plasma urea nitroge n measurement (mass/volume)Ordered By: Shayy Curtis on 11-23-2024 Urea nitrogen [Mass/Vol] 16 mg/dL 4-19 [facility] Sodium levelOrdered By: Latrice simonmaira Ever on 11-23-2024 Sodium [Moles/Vol] 139 mmol/L 133-145 [facility] White blood cell (WBC) count Ordered By: Shayy Curtis on 11-23-2024 WBC (Bld) [#/Vol] 6.6 10*3/uL 4.4-11.0 [facility] Absolute lymphocyte countOrd ered By: Shayy Curtis on 11-02-2024 Lymphocytes Auto (Unsp spec) [#/Vol] 1.10 10*3/uL 0.83-4.51 [facility] Absolute neutrophil countOrd ered By: Shayy Curtis on 11-02-2024 Neutrophils (Bld) [#/Vol] 6.2 10*3/uL 2.0-7.7 [facility] Anion gap in Serum or Plasma Ordered By: Shayy Curtis on 11-02-2024 Anion gap [Moles/Vol] 10 mmol/L 5-15 [facility] Automated lymphocyte count a s percentage of total leukocytesOrdered By: Shayy Curtis on 11-02-2024 Lymphocytes/100 WBC Auto (Unsp spec) 13.5 % Low 19-41 [facility] BUN/creatinine ratioOrdered By: Shayy Curtis on 11-02-2024 Urea nitrogen/Creatinine [Mass ratio] 30.4 mg/mg High 10-20 [facility] Basophil percentageOrdered B y: Shayy Curtis on 11-02-2024 Basophils/100 WBC (Bld) 0.5 % 0-1 [facility] Carbon dioxide, total [Moles /volume] in Central venous bloodOrdered By: Shayy Curtis on 11-02-2024 CO2 [Moles/Vol] 22.3 mmol/L 21.0-32.0 [facility] Chloride assayOrdered By: Hung Curtis on 11-02-2024 Chloride [Moles/Vol] 106 mmol/L 98-108 [facility] Eosinophil percentageOrdered By: Shayy Curtis on 11-02-2024 Eosinophils/100 WBC (Bld) 1.4 % 0-5 [facility] Erythrocyte distribution wid th ratioOrdered By: Shayy Curtis on 11-02-2024 Erythrocyte distribution width (RBC) [Ratio] 18.0 % High 11.6-14.6 [facility] Erythrocyte distribution wid th standard deviationOrdered By: Shayy Curtis on 11-02-2024 Erythrocyte distribution width (RBC) [Ratio] 53.7 fl High 35.1-43.9 [facility] Glomerular filtration rate ( GFR) estimation/1.73 sq m using serum, plasma, or whole bOrdered By: Shayy Curtis on 11-02-2024 GFR/1.73 sq M.predicted among non-blacks MDRD (S/P/Bld) [Vol rate/Area] 91 mL/min/{1.73_m2} >60 [facility] Comment on above: mL/min/1.73m2 CKD-EP I Creatinine Equation (2020) Hematocrit Auto (Bld) [Volum e fraction]Ordered By: Shayy Curtis on 11-02-2024 Hematocrit (Bld) [Volume fraction] 35.3 % Low 40-54 [facility] Hemoglobin measurementOrdere d By: Shayy Curtis on 11-02-2024 Hemoglobin (Bld) [Mass/Vol] 11.2 g/dL Low 13.0-16.5 [facility] Immature granulocytes/100 WB C Auto (Bld)Ordered By: Shayy Curtis on 11-02-2024 Immature granulocytes/100 WBC (Bld) 0.400 % 0.0-0.9 [facility] Comment on above: IG% - Immature Granu locytes (promyelocytes, myelocytes and metamyelocytes) > 1% indicates that a LEFT SHIFT is Present. MCV (mean corpuscular volume ) determinationOrdered By: Hungbaldomero Curtis on 11-02-2024 MCV (RBC) [Entitic vol] 81.5 fL 80-94 [facility] Mean corpuscular hemoglobin (MCH) determinationOrdered By: [facility] on 11-02-2024 MCH (RBC) [Entitic mass] 25.9 pg Low 27.0-32.0 [facility] Mean corpuscular hemoglobin concentration (MCHC) determinationOrdered By: holliemcalesterirlanda Salazartomyradha on 11-02-2024 MCHC (RBC) [Mass/Vol] 31.7 g/dL Low 32-36 [facility] Mean platelet volume determi nationOrdered By: holliemcalesterirlanda Salazartomyradha on 11-02-2024 Platelet mean volume (Bld) [Entitic vol] 10.3 fL 6.2-12.0 [facility] Monocyte percentageOrdered B y: Shayy Curtis on 11-02-2024 Monocytes/100 WBC (Bld) 7.7 % 0-10 [facility] Neutrophil percentageOrdered By: [facility] Martinradha on 11-02-2024 Neutrophils/100 WBC (Bld) 76.5 % High 47-70 [facility] Nucleated red blood cell per centageOrdered By: holliemcalesterirlanda Salazartomyradha on 11-02-2024 Nucleated RBC/100 WBC (Bld) [Ratio] 0 % 0-5 [facility] Platelet countOrdered By: holliemcalesterirlanda Salazartomyradha on 11-02-2024 Platelets (Bld) [#/Vol] 225 10*3/uL 150-450 [facility] Potassium measurement (mass/ volume)Ordered By: holliemcalesterirlanda Curtis on 11-02-2024 Potassium (Unsp spec) [Mass/Vol] 3.9 mmol/L 3.3-5.1 [facility] RBC Auto (Bld) [#/Vol]Ordere d By: Shayy Curtis on 11-02-2024 RBC (Bld) [#/Vol] 4.33 10*6/uL Low 4.6-6.2 [facility] Serum creatinine measurement (mass/volume)Ordered By: Shayy Curtis on 11-02-2024 Creatinine [Mass/Vol] 0.62 mg/dL Low 0.70-1.20 [facility] Serum glucose measurement (m ass/volume)Ordered By: Shayy Curtis on 11-02-2024 Glucose [Mass/Vol] 110 mg/dL High 70-99 [facility] Serum or plasma calcium alvaro urement (mass/volume)Ordered By: Shayy Curtis on 11-02-2024 Calcium [Mass/Vol] 8.7 mg/dL 7.6-11.0 [facility] Serum or plasma urea nitroge n measurement (mass/volume)Ordered By: Shayy Curtis on 11-02-2024 Urea nitrogen [Mass/Vol] 19 mg/dL 4-19 [facility] Sodium levelOrdered By: Latrice simonmaira Ever on 11-02-2024 Sodium [Moles/Vol] 139 mmol/L 133-145 [facility] White blood cell (WBC) count Ordered By: Shayy Curtis on 11-02-2024 WBC (Bld) [#/Vol] 8.1 10*3/uL 4.4-11.0 [facility] International normalized rat io (INR) measurement by fingerstickOrdered By: Shayy Curtis on 10-31-2024 INR Coag (BldC) [Relative time] 1.8 [facility] Comment on above: Critical Value > 4.0 Whole blood prothrombin time Ordered By: Shayy Curtis on 10-31-2024 PT Coag (Bld) [Time] 20.2 s High 11.7-14.9 [facility] normalized rat io (INR) measurement by fingerstickOrdered By: Shayy Curtis on 10-06-2024 INR Coag (BldC) [Relative time] 2.1 [facility] Comment on above: Critical Value > 4.0 Whole blood prothrombin time Ordered By: Shayy Curtis on 10-06-2024 PT Coag (Bld) [Time] 22.6 s High 11.7-14.9 [facility] Absolute lymphocyte countOrd ered By: Shayy Curtis on 10-05-2024 Lymphocytes Auto (Unsp spec) [#/Vol] 1.54 10*3/uL 0.83-4.51 [facility] Absolute neutrophil countOrd ered By: Shayy Curtis on 10-05-2024 Neutrophils (Bld) [#/Vol] 4.2 10*3/uL 2.0-7.7 [facility] Anion gap in Serum or Plasma Ordered By: Shayy Curtis on 10-05-2024 Anion gap [Moles/Vol] 10 mmol/L 5-15 [facility] Automated lymphocyte count a s percentage of total leukocytesOrdered By: Shayy Curtis on 10-05-2024 Lymphocytes/100 WBC Auto (Unsp spec) 23.8 % 19-41 [facility] BUN/creatinine ratioOrdered By: baldomero Curtis on 10-05-2024 Urea nitrogen/Creatinine [Mass ratio] 18.2 mg/mg 10-20 [facility] Basophil percentageOrdered B y: Shayy Curtis on 10-05-2024 Basophils/100 WBC (Bld) 0.6 % 0-1 [facility] Carbon dioxide, total [Moles /volume] in Central venous bloodOrdered By: Shayy Curtis on 10-05-2024 CO2 [Moles/Vol] 24.6 mmol/L 21.0-32.0 [facility] Chloride assayOrdered By: Hung Curtis on 10-05-2024 Chloride [Moles/Vol] 106 mmol/L 98-108 [facility] Eosinophil percentageOrdered By: Shayy Curtis on 10-05-2024 Eosinophils/100 WBC (Bld) 1.9 % 0-5 [facility] Erythrocyte distribution wid th ratioOrdered By: Shayy Curtis on 10-05-2024 Erythrocyte distribution width (RBC) [Ratio] 18.2 % High 11.6-14.6 [facility] Erythrocyte distribution wid th standard deviationOrdered By: Shayy Curtis on 10-05-2024 Erythrocyte distribution width (RBC) [Ratio] 52.4 fl High 35.1-43.9 [facility] Glomerular filtration rate ( GFR) estimation/1.73 sq m using serum, plasma, or whole bOrdered By: Shayy Curtis on 10-05-2024 GFR/1.73 sq M.predicted among non-blacks MDRD (S/P/Bld) [Vol rate/Area] 87 mL/min/{1.73_m2} >60 [facility] Comment on above: mL/min/1.73m2 CKD-EP I Creatinine Equation (2020) Hematocrit Auto (Bld) [Volum e fraction]Ordered By: Shayy Curtis on 10-05-2024 Hematocrit (Bld) [Volume fraction] 35.0 % Low 40-54 [facility] Hemoglobin measurementOrdere d By: Shayy Curtis on 10-05-2024 Hemoglobin (Bld) [Mass/Vol] 11.0 g/dL Low 13.0-16.5 [facility] Immature granulocytes/100 WB C Auto (Bld)Ordered By: Shayy Curtis 10-05-2024 Immature granulocytes/100 WBC (Bld) 0.300 % 0.0-0.9 [facility] Comment on above: IG% - Immature Granu locytes (promyelocytes, myelocytes and metamyelocytes) > 1% indicates that a LEFT SHIFT is Present. MCV (mean corpuscular volume ) determinationOrdered By: Shayy Curtis 10-05-2024 MCV (RBC) [Entitic vol] 78.8 fL Low 80-94 [facility] Mean corpuscular hemoglobin (MCH) determinationOrdered By: baldomero Curtis 10-05-2024 MCH (RBC) [Entitic mass] 24.8 pg Low 27.0-32.0 [facility] Mean corpuscular hemoglobin concentration (MCHC) determinationOrdered By: Shayy Curtis 10-05-2024 MCHC (RBC) [Mass/Vol] 31.4 g/dL Low 32-36 [facility] Mean platelet volume determi nationOrdered By: Shayy Curtis on 10-05-2024 Platelet mean volume (Bld) [Entitic vol] 10.3 fL 6.2-12.0 [facility] Monocyte percentageOrdered B y: Shayy Salazartomyradha on 10-05-2024 Monocytes/100 WBC (Bld) 8.5 % 0-10 [facility] Neutrophil percentageOrdered By: Shayy Salazartomyradha on 10-05-2024 Neutrophils/100 WBC (Bld) 64.9 % 47-70 [facility] Nucleated red blood cell per centageOrdered By: Shayy Salazartomyradha on 10-05-2024 Nucleated RBC/100 WBC (Bld) [Ratio] 0 % 0-5 [facility] Platelet countOrdered By: Hung hollietimmy Curtis on 10-05-2024 Platelets (Bld) [#/Vol] 235 10*3/uL 150-450 [facility] Potassium measurement (mass/ volume)Ordered By: Shayy Curtis on 10-05-2024 Potassium (Unsp spec) [Mass/Vol] 4.1 mmol/L 3.3-5.1 [facility] RBC Auto (Bld) [#/Vol]Ordere d By: Shayy Curtis on 10-05-2024 RBC (Bld) [#/Vol] 4.44 10*6/uL Low 4.6-6.2 [facility] Serum creatinine measurement (mass/volume)Ordered By: Shayy Curtis on 10-05-2024 Creatinine [Mass/Vol] 0.73 mg/dL 0.70-1.20 [facility] Serum glucose measurement (m ass/volume)Ordered By: Shayy Curtis on 10-05-2024 Glucose [Mass/Vol] 90 mg/dL 70-99 [facility] Serum or plasma calcium alvaro urement (mass/volume)Ordered By: Shayy Curtis on 10-05-2024 Calcium [Mass/Vol] 8.7 mg/dL 7.6-11.0 [facility] Serum or plasma urea nitroge n measurement (mass/volume)Ordered By: Hungbaldomero Salazartomyradha on 10-05-2024 Urea nitrogen [Mass/Vol] 13 mg/dL 4-19 [facility] Sodium levelOrdered By: Latrice warner Martintomyradha on 10-05-2024 Sodium [Moles/Vol] 140 mmol/L 133-145 [facility] White blood cell (WBC) count Ordered By: Hunghollietimmy Martinsergio on 10-05-2024 WBC (Bld) [#/Vol] 6.5 10*3/uL 4.4-11.0 [facility] International normalized rat io (INR) calculationOrdered By: Hunghollierobsonirlanda Salazartomyradha on 09-29-2024 INR Coag (Bld) [Relative time] 3.3 {INR} [facility] Prothrombin timeOrdered By: Hunghollierobsonirlanda Salazartomyradha on 09-29-2024 PT Coag (PPP) [Time] 34.4 s High 11.7-14.9 [facility] Absolute lymphocyte countOrd ered By: Hunghollierobsonirlanda Salazartomyradha on 09-28-2024 Lymphocytes Auto (Unsp spec) [#/Vol] 1.41 10*3/uL 0.83-4.51 [facility] Absolute neutrophil countOrd ered By: Hunghollierobsonirlanda Salazartomyradha on 09-28-2024 Neutrophils (Bld) [#/Vol] 4.8 10*3/uL 2.0-7.7 [facility] Anion gap in Serum or Plasma Ordered By: Hunghollietimmy Martintomyradha on 09-28-2024 Anion gap [Moles/Vol] 13 mmol/L 5-15 [facility] Automated lymphocyte count a s percentage of total leukocytesOrdered By: Hungbaldomero Salazartomyradha on 09-28-2024 Lymphocytes/100 WBC Auto (Unsp spec) 20.1 % 19-41 [facility] BUN/creatinine ratioOrdered By: baldomero Salazartomyradha on 09-28-2024 Urea nitrogen/Creatinine [Mass ratio] 19.9 mg/mg 10-20 [facility] Basophil percentageOrdered B y: Christineirlanda Salazartomyradha on 09-28-2024 Basophils/100 WBC (Bld) 0.6 % 0-1 [facility] Carbon dioxide, total [Moles /volume] in Central venous bloodOrdered By: Shayy Curtis on 09-28-2024 CO2 [Moles/Vol] 21.1 mmol/L 21.0-32.0 [facility] Chloride assayOrdered By: Hung Curtis on 09-28-2024 Chloride [Moles/Vol] 105 mmol/L 98-108 [facility] Eosinophil percentageOrdered By: Shayy Curtis on 09-28-2024 Eosinophils/100 WBC (Bld) 2.0 % 0-5 [facility] Erythrocyte distribution wid th ratioOrdered By: baldomero Curtis on 09-28-2024 Erythrocyte distribution width (RBC) [Ratio] 18.3 % High 11.6-14.6 [facility] Erythrocyte distribution wid th standard deviationOrdered By: holliemcalesterirlanda Curtis on 09-28-2024 Erythrocyte distribution width (RBC) [Ratio] 52.8 fl High 35.1-43.9 [facility] Glomerular filtration rate ( GFR) estimation/1.73 sq m using serum, plasma, or whole bOrdered By: Shayy Curtis on 09-28-2024 GFR/1.73 sq M.predicted among non-blacks MDRD (S/P/Bld) [Vol rate/Area] 88 mL/min/{1.73_m2} >60 [facility] Comment on above: mL/min/1.73m2 CKD-EP I Creatinine Equation (2020) Hematocrit Auto (Bld) [Volum e fraction]Ordered By: Shayy Curtis on 09-28-2024 Hematocrit (Bld) [Volume fraction] 37.0 % Low 40-54 [facility] Hemoglobin measurementOrdere d By: Shayy Curtis on 09-28-2024 Hemoglobin (Bld) [Mass/Vol] 11.5 g/dL Low 13.0-16.5 [facility] Immature granulocytes/100 WB C Auto (Bld)Ordered By: Shayy Curtis on 09-28-2024 Immature granulocytes/100 WBC (Bld) 0.300 % 0.0-0.9 [facility] Comment on above: IG% - Immature Granu locytes (promyelocytes, myelocytes and metamyelocytes) > 1% indicates that a LEFT SHIFT is Present. MCV (mean corpuscular volume ) determinationOrdered By: Shayy Curtis on 09-28-2024 MCV (RBC) [Entitic vol] 80.3 fL 80-94 [facility] Mean corpuscular hemoglobin (MCH) determinationOrdered By: Shayy Curtis on 09-28-2024 MCH (RBC) [Entitic mass] 24.9 pg Low 27.0-32.0 [facility] Mean corpuscular hemoglobin concentration (MCHC) determinationOrdered By: Shayy Curtis on 09-28-2024 MCHC (RBC) [Mass/Vol] 31.1 g/dL Low 32-36 [facility] Mean platelet volume determi nationOrdered By: Shayy Curtis on 09-28-2024 Platelet mean volume (Bld) [Entitic vol] 10.5 fL 6.2-12.0 [facility] Monocyte percentageOrdered B y: Shayy Curtis on 09-28-2024 Monocytes/100 WBC (Bld) 8.8 % 0-10 [facility] Neutrophil percentageOrdered By: holliemcalesterirlanda Curtis on 09-28-2024 Neutrophils/100 WBC (Bld) 68.2 % 47-70 [facility] Nucleated red blood cell per centageOrdered By: Shayy Curtis on 09-28-2024 Nucleated RBC/100 WBC (Bld) [Ratio] 0 % 0-5 [facility] Platelet countOrdered By: Hung hollietimmy Curtis on 09-28-2024 Platelets (Bld) [#/Vol] 280 10*3/uL 150-450 [facility] Potassium measurement (mass/ volume)Ordered By: Shayy Curtis on 09-28-2024 Potassium (Unsp spec) [Mass/Vol] 4.0 mmol/L 3.3-5.1 [facility] RBC Auto (Bld) [#/Vol]Ordere d By: Shayy Curtis on 09-28-2024 RBC (Bld) [#/Vol] 4.61 10*6/uL 4.6-6.2 [facility] Serum creatinine measurement (mass/volume)Ordered By: Shayy Curtis on 09-28-2024 Creatinine [Mass/Vol] 0.71 mg/dL 0.70-1.20 [facility] Serum glucose measurement (m ass/volume)Ordered By: Shayy Curtis on 09-28-2024 Glucose [Mass/Vol] 91 mg/dL 70-99 [facility] Serum or plasma calcium alvaro urement (mass/volume)Ordered By: Shayy Curtis on 09-28-2024 Calcium [Mass/Vol] 8.9 mg/dL 7.6-11.0 [facility] Serum or plasma urea nitroge n measurement (mass/volume)Ordered By: Shayy Curtis on 09-28-2024 Urea nitrogen [Mass/Vol] 14 mg/dL 4-19 [facility] Sodium levelOrdered By: Latrice Curtis on 09-28-2024 Sodium [Moles/Vol] 140 mmol/L 133-145 [facility] White blood cell (WBC) count Ordered By: Shayy Curtis on 09-28-2024 WBC (Bld) [#/Vol] 7.0 10*3/uL 4.4-11.0 [facility] International normalized rat io (INR) measurement by fingerstickOrdered By: Shayy Curtis on 09-26-2024 INR Coag (BldC) [Relative time] 2.5 [facility] Comment on above: Critical Value > 4.0 Whole blood prothrombin time Ordered By: Shayy Curtis on 09-26-2024 PT Coag (Bld) [Time] 27.1 s High 11.7-14.9 [facility] International normalized rat io (INR) calculationOrdered By: Shayy Curtis on 09-23-2024 INR Coag (Bld) [Relative time] 2.0 {INR} [facility] Prothrombin timeOrdered By: Shayy Curtis on 09-23-2024 PT Coag (PPP) [Time] 23.5 s High 11.7-14.9 [facility] Absolute lymphocyte countOrd ered By: Shayy Curtis on 09-21-2024 Lymphocytes Auto (Unsp spec) [#/Vol] 1.35 10*3/uL 0.83-4.51 [facility] Absolute neutrophil countOrd ered By: holliemcalesterirlanda Curtis on 09-21-2024 Neutrophils (Bld) [#/Vol] 4.3 10*3/uL 2.0-7.7 [facility] Anion gap in Serum or Plasma Ordered By: Latricemcalesterirlanda Curtis on 09-21-2024 Anion gap [Moles/Vol] 12 mmol/L 5-15 [facility] Automated lymphocyte count a s percentage of total leukocytesOrdered By: Latricemcalesterirlanda Curtis on 09-21-2024 Lymphocytes/100 WBC Auto (Unsp spec) 21.5 % 19-41 [facility] BUN/creatinine ratioOrdered By: [facility] Sal[facility] on 09-21-2024 Urea nitrogen/Creatinine [Mass ratio] 15.8 mg/mg 10-20 [facility] Basophil percentageOrdered B y: Shayy Curtis on 09-21-2024 Basophils/100 WBC (Bld) 0.8 % 0-1 [facility] CNPNon 09-21-2024 [facility] ROBY FLORES ([id number]) 1935 M Date Time Provider Department 09/21/24 [facility] During your visit today, we recorded the following information about you: Petty Vargas 09/21/2024 9:23 AM Signed [facility] rehabilitation. 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 Encounter Status:Closed by MARTA PALACIO on 09/22/24 Normal [facility] Carbon dioxide, total [Moles /volume] in Central venous bloodOrdered By: Shayy Curtis on 09-21-2024 CO2 [Moles/Vol] 23.2 mmol/L 21.0-32.0 [facility] Chloride assayOrdered By: Hung Curtis on 09-21-2024 Chloride [Moles/Vol] 104 mmol/L 98-108 [facility] Eosinophil percentageOrdered By: Shayy Curtis on 09-21-2024 Eosinophils/100 WBC (Bld) 1.3 % 0-5 [facility] Erythrocyte distribution wid th ratioOrdered By: Shayy Curtis on 09-21-2024 Erythrocyte distribution width (RBC) [Ratio] 18.0 % High 11.6-14.6 [facility] Erythrocyte distribution wid th standard deviationOrdered By: Shayy Curtis on 09-21-2024 Erythrocyte distribution width (RBC) [Ratio] 50.8 fl High 35.1-43.9 [facility] Glomerular filtration rate ( GFR) estimation/1.73 sq m using serum, plasma, or whole bOrdered By: Shayy Curtis on 09-21-2024 GFR/1.73 sq M.predicted among non-blacks MDRD (S/P/Bld) [Vol rate/Area] 88 mL/min/{1.73_m2} >60 [facility] Comment on above: mL/min/1.73m2 CKD-EP I Creatinine Equation (2020) Hematocrit Auto (Bld) [Volum e fraction]Ordered By: Shayy Curtis on 09-21-2024 Hematocrit (Bld) [Volume fraction] 37.5 % Low 40-54 [facility] Hemoglobin measurementOrdere d By: Shayy Curtis on 09-21-2024 Hemoglobin (Bld) [Mass/Vol] 11.6 g/dL Low 13.0-16.5 [facility] Immature granulocytes/100 WB C Auto (Bld)Ordered By: Shayy Curtis on 09-21-2024 Immature granulocytes/100 WBC (Bld) 0.300 % 0.0-0.9 [facility] Comment on above: IG% - Immature Granu locytes (promyelocytes, myelocytes and metamyelocytes) > 1% indicates that a LEFT SHIFT is Present. International normalized rat io (INR) calculationOrdered By: Shayy Curtis on 09-21-2024 INR Coag (Bld) [Relative time] 1.7 {INR} [facility] MCV (mean corpuscular volume ) determinationOrdered By: Shayy Curtis 09-21-2024 MCV (RBC) [Entitic vol] 78.9 fL Low 80-94 [facility] Mean corpuscular hemoglobin (MCH) determinationOrdered By: Shayy Curtis on 09-21-2024 MCH (RBC) [Entitic mass] 24.4 pg Low 27.0-32.0 [facility] Mean corpuscular hemoglobin concentration (MCHC) determinationOrdered By: Shayy Curtis on 09-21-2024 MCHC (RBC) [Mass/Vol] 30.9 g/dL Low 32-36 [facility] Mean platelet volume determi nationOrdered By: Shayy Curtis on 09-21-2024 Platelet mean volume (Bld) [Entitic vol] 10.1 fL 6.2-12.0 [facility] Monocyte percentageOrdered B y: Shayy Curtis on 09-21-2024 Monocytes/100 WBC (Bld) 8.1 % 0-10 [facility] Neutrophil percentageOrdered By: Shayy Curtis on 09-21-2024 Neutrophils/100 WBC (Bld) 68.0 % 47-70 [facility] Nucleated red blood cell per centageOrdered By: Shayy Curtis on 09-21-2024 Nucleated RBC/100 WBC (Bld) [Ratio] 0 % 0-5 [facility] Platelet countOrdered By: Hung Curtis on 09-21-2024 Platelets (Bld) [#/Vol] 318 10*3/uL 150-450 [facility] Potassium measurement (mass/ volume)Ordered By: Shayy Curtis on 09-21-2024 Potassium (Unsp spec) [Mass/Vol] 4.0 mmol/L 3.3-5.1 [facility] Prothrombin timeOrdered By: Shayy Curtis on 09-21-2024 PT Coag (PPP) [Time] 20.6 s High 11.7-14.9 [facility] RBC Auto (Bld) [#/Vol]Ordere d By: Shayy Curtis on 09-21-2024 RBC (Bld) [#/Vol] 4.75 10*6/uL 4.6-6.2 [facility] Serum creatinine measurement (mass/volume)Ordered By: Shayy Curtis on 09-21-2024 Creatinine [Mass/Vol] 0.70 mg/dL 0.70-1.20 [facility] Serum glucose measurement (m ass/volume)Ordered By: Shayy Curtis on 09-21-2024 Glucose [Mass/Vol] 101 mg/dL High 70-99 [facility] Serum or plasma calcium alvaro urement (mass/volume)Ordered By: Shayy Curtis on 09-21-2024 Calcium [Mass/Vol] 9.2 mg/dL 7.6-11.0 [facility] Serum or plasma urea nitroge n measurement (mass/volume)Ordered By: Shayy Curtis on 09-21-2024 Urea nitrogen [Mass/Vol] 11 mg/dL 4-19 [facility] Sodium levelOrdered By: Latrice simonraffiradha Curtis on 09-21-2024 Sodium [Moles/Vol] 139 mmol/L 133-145 [facility] White blood cell (WBC) count Ordered By: Shayy Curtis on 09-21-2024 WBC (Bld) [#/Vol] 6.3 10*3/uL 4.4-11.0 [facility] International normalized rat io (INR) measurement by fingerstickOrdered By: Shayy Curtis on 09-19-2024 INR Coag (BldC) [Relative time] 1.9 [facility] Comment on above: Critical Value > 4.0 Whole blood prothrombin time Ordered By: Shayy Curtis on 09-19-2024 PT Coag (Bld) [Time] 21.5 s High 11.7-14.9 [facility] International normalized rat io (INR) calculationOrdered By: Shayy Curtis on 09-15-2024 INR Coag (Bld) [Relative time] 2.1 {INR} [facility] Prothrombin timeOrdered By: Shayy Curtis on 09-15-2024 PT Coag (PPP) [Time] 24.2 s High 11.7-14.9 [facility] Absolute lymphocyte countOrd ered By: Shayy Curtis on 09-14-2024 Lymphocytes Auto (Unsp spec) [#/Vol] 1.57 10*3/uL 0.83-4.51 [facility] Absolute neutrophil countOrd ered By: Shayy Curtis on 09-14-2024 Neutrophils (Bld) [#/Vol] 5.1 10*3/uL 2.0-7.7 [facility] Anion gap in Serum or Plasma Ordered By: Shayy Curtis on 09-14-2024 Anion gap [Moles/Vol] 12 mmol/L 5-15 [facility] Automated lymphocyte count a s percentage of total leukocytesOrdered By: Shayy Curtis on 09-14-2024 Lymphocytes/100 WBC Auto (Unsp spec) 20.8 % 19-41 [facility] BUN/creatinine ratioOrdered By: Shayy Curtis on 09-14-2024 Urea nitrogen/Creatinine [Mass ratio] 21.8 mg/mg High 10-20 [facility] Basophil percentageOrdered B y: Shayy Curtis on 09-14-2024 Basophils/100 WBC (Bld) 1.1 % High 0-1 [facility] Carbon dioxide, total [Moles /volume] in Central venous bloodOrdered By: Shayy Curtis on 09-14-2024 CO2 [Moles/Vol] 21.8 mmol/L 21.0-32.0 [facility] Chloride assayOrdered By: Hung Curtis on 09-14-2024 Chloride [Moles/Vol] 107 mmol/L 98-108 [facility] Eosinophil percentageOrdered By: Shayy Curtis on 09-14-2024 Eosinophils/100 WBC (Bld) 1.7 % 0-5 [facility] Erythrocyte distribution wid th ratioOrdered By: Shayy Curtis on 09-14-2024 Erythrocyte distribution width (RBC) [Ratio] 17.7 % High 11.6-14.6 [facility] Erythrocyte distribution wid th standard deviationOrdered By: Shayy Curtis on 09-14-2024 Erythrocyte distribution width (RBC) [Ratio] 51.1 fl High 35.1-43.9 [facility] Glomerular filtration rate ( GFR) estimation/1.73 sq m using serum, plasma, or whole bOrdered By: Shayy Curtis on 09-14-2024 GFR/1.73 sq M.predicted among non-blacks MDRD (S/P/Bld) [Vol rate/Area] 87 mL/min/{1.73_m2} >60 [facility] Comment on above: mL/min/1.73m2 CKD-EP I Creatinine Equation (2020) Hematocrit Auto (Bld) [Volum e fraction]Ordered By: Shayy Curtis on 09-14-2024 Hematocrit (Bld) [Volume fraction] 34.7 % Low 40-54 [facility] Hemoglobin measurementOrdere d By: Shayy Curtis on 09-14-2024 Hemoglobin (Bld) [Mass/Vol] 10.7 g/dL Low 13.0-16.5 [facility] Immature granulocytes/100 WB C Auto (Bld)Ordered By: holliemcalesterirlanda Curtis on 09-14-2024 Immature granulocytes/100 WBC (Bld) 0.400 % 0.0-0.9 [facility] Comment on above: IG% - Immature Granu locytes (promyelocytes, myelocytes and metamyelocytes) > 1% indicates that a LEFT SHIFT is Present. MCV (mean corpuscular volume ) determinationOrdered By: Shayy Curtis on 09-14-2024 MCV (RBC) [Entitic vol] 78.9 fL Low 80-94 [facility] Mean corpuscular hemoglobin (MCH) determinationOrdered By: Shayy Curtis on 09-14-2024 MCH (RBC) [Entitic mass] 24.3 pg Low 27.0-32.0 [facility] Mean corpuscular hemoglobin concentration (MCHC) determinationOrdered By: baldomero Curtis on 09-14-2024 MCHC (RBC) [Mass/Vol] 30.8 g/dL Low 32-36 [facility] Mean platelet volume determi nationOrdered By: Shayy Curtis on 09-14-2024 Platelet mean volume (Bld) [Entitic vol] 10.6 fL 6.2-12.0 [facility] Monocyte percentageOrdered B y: Shayy Curtis on 09-14-2024 Monocytes/100 WBC (Bld) 8.5 % 0-10 [facility] Neutrophil percentageOrdered By: Shayy Curtis on 09-14-2024 Neutrophils/100 WBC (Bld) 67.5 % 47-70 [facility] Nucleated red blood cell per centageOrdered By: Shayy Curtis on 09-14-2024 Nucleated RBC/100 WBC (Bld) [Ratio] 0 % 0-5 [facility] Platelet countOrdered By: Hung Curtis on 09-14-2024 Platelets (Bld) [#/Vol] 291 10*3/uL 150-450 [facility] Potassium measurement (mass/ volume)Ordered By: Shayy Curtis on 09-14-2024 Potassium (Unsp spec) [Mass/Vol] 4.0 mmol/L 3.3-5.1 [facility] RBC Auto (Bld) [#/Vol]Ordere d By: Shayy Curtis on 09-14-2024 RBC (Bld) [#/Vol] 4.40 10*6/uL Low 4.6-6.2 [facility] Serum creatinine measurement (mass/volume)Ordered By: Shayy Curtis on 09-14-2024 Creatinine [Mass/Vol] 0.74 mg/dL 0.70-1.20 [facility] Serum glucose measurement (m ass/volume)Ordered By: Shayy Curtis on 09-14-2024 Glucose [Mass/Vol] 99 mg/dL 70-99 [facility] Serum or plasma calcium alvaro urement (mass/volume)Ordered By: Shayy Curtis on 09-14-2024 Calcium [Mass/Vol] 8.6 mg/dL 7.6-11.0 [facility] Serum or plasma urea nitroge n measurement (mass/volume)Ordered By: Shayy Curtis on 09-14-2024 Urea nitrogen [Mass/Vol] 16 mg/dL 4-19 [facility] Sodium levelOrdered By: Latrice Curtis on 09-14-2024 Sodium [Moles/Vol] 141 mmol/L 133-145 [facility] White blood cell (WBC) count Ordered By: Shayy Curtis on 09-14-2024 WBC (Bld) [#/Vol] 7.5 10*3/uL 4.4-11.0 [facility] International normalized rat io (INR) measurement by fingerstickOrdered By: Shayy Curtis on 09-12-2024 INR Coag (BldC) [Relative time] 3.2 [facility] Comment on above: Critical Value > 4.0 Whole blood prothrombin time Ordered By: Shayy Curtis on 09-12-2024 PT Coag (Bld) [Time] 33.0 s High 11.7-14.9 [facility] International normalized rat io (INR) measurement by fingerstickOrdered By: Shayy Curtis on 09-08-2024 INR Coag (BldC) [Relative time] 2.2 [facility] Comment on above: Critical Value > 4.0 Prothrombin Time w/INRon INR Normal [facility] Comment on above: Result Comment: Canc elled via OM: Order cancelled - Patient discharged Performed By: #### L 300.3900 #### [facility] [address] [place], [place], [id number] PROTIME Normal 11.7-14.9 [facility] Comment on above: Result Comment: Canc elled via OM: Order cancelled - Patient discharged Performed By: #### L 300.3900 #### [facility] [address] [place], [place], [id number] Whole blood prothrombin time Ordered By: Shayy Curtis on 09-08-2024 PT Coag (Bld) [Time] 23.8 s High 11.7-14.9 [facility] Anion gap in Serum or Plasma Ordered By: Shayy Curtis on 09-07-2024 Anion gap [Moles/Vol] 10 mmol/L 5-15 [facility] BUN/creatinine ratioOrdered By: Shayy Curtis on 09-07-2024 Urea nitrogen/Creatinine [Mass ratio] 14.0 mg/mg 10-20 [facility] Bilirubin, totalOrdered By: Shayy Curtis on 09-07-2024 Bilirubin [Mass/Vol] 1.02 mg/dL 0.00-1.30 [facility] Calculated very low density lipoprotein (VLDL) cholesterol measurementOrdered By: Shayy Curtis on 09-07-2024 Calculated very low density lipoprotein (VLDL) cholesterol measurement 13 mg/dL 5-40 [facility] Carbon dioxide, total [Moles /volume] in Central venous bloodOrdered By: Shayy Curtis on 09-07-2024 CO2 [Moles/Vol] 25.4 mmol/L 21.0-32.0 [facility] Chloride assayOrdered By: Hung Curtis on 09-07-2024 Chloride [Moles/Vol] 104 mmol/L 98-108 [facility] Culture, Blood (WB)on 2024 CUB No growth in 5 days. Normal [facility] Comment on above: Performed By: #### M 200.1000, L509.7001, L101.9900, L501.6710 #### [facility] [address] [place], [address] Glomerular filtration rate ( GFR) estimation/1.73 sq m using serum, plasma, or whole bOrdered By: Shayy Curtis on 09-07-2024 GFR/1.73 sq M.predicted among non-blacks MDRD (S/P/Bld) [Vol rate/Area] 88 mL/min/{1.73_m2} >60 [facility] Comment on above: mL/min/1.73m2 CKD-EP I Creatinine Equation (2020) LDL calc ser/plasOrdered By: Shayy Curtis on 09-07-2024 Cholesterol in LDL [Mass/Vol] 64 mg/dL [facility] Comment on above: Lbksbszyjw=598-217 m g/dL & Higher Afcf=182 mg/dL or greater Laboratory - Chemistry and C hemistry - challengeOrdered By: Shayy Curtis on 09-07-2024 AST [Catalytic activity/Vol] 33 U/L <38 [facility] Potassium measurement (mass/ volume)Ordered By: Shayy Curtis on 09-07-2024 Potassium (Unsp spec) [Mass/Vol] 3.8 mmol/L 3.3-5.1 [facility] Prothrombin Time w/INRon INR Normal [facility] Comment on above: Result Comment: Canc elled via OM: Order cancelled - Patient discharged Performed By: #### L 300.3900 #### [facility] [address] [place], [place], [id number] PROTIME Normal 11.7-14.9 [facility] Comment on above: Result Comment: Canc elled via OM: Order cancelled - Patient discharged Performed By: #### L 300.3900 #### [facility] [address] [place], [place], [id number] Screening total cholesterol/ high density lipoprotein (HDL) cholesterol ratioOrdered By: Shayy Curtis on 09-07-2024 Cholesterol.total/Cho lesterol in HDL [Mass ratio] 3.75 {ratio} [facility] Serum creatinine measurement (mass/volume)Ordered By: Shayy Curtis on 09-07-2024 Creatinine [Mass/Vol] 0.70 mg/dL 0.70-1.20 [facility] Serum globulin measurementOr dered By: Shayy Curtis on 09-07-2024 Globulin (S) [Mass/Vol] 2.5 g/dL 2.2-4.2 [facility] Serum glucose measurement (m ass/volume)Ordered By: Shayy Curtis on 09-07-2024 Glucose [Mass/Vol] 107 mg/dL High 70-99 [facility] Serum or plasma alanine franks otransferase (ALT) measurementOrdered By: Shayy Curtis on 09-07-2024 ALT [Catalytic activity/Vol] 23 U/L <47 [facility] Serum or plasma albumin alvaro urement (mass/volume)Ordered By: Shayy Curtis on 09-07-2024 Albumin [Mass/Vol] 3.7 g/dL 3.4-4.8 [facility] Serum or plasma albumin/glob ulin mass ratioOrdered By: Shayy Curtis on 09-07-2024 Albumin/Globulin [Mass ratio] 1.5 {ratio} 0.9-2.4 [facility] Serum or plasma alkaline carole sphatase measurementOrdered By: Shayy Curtis 09-07-2024 ALP [Catalytic activity/Vol] 123 U/L 40-129 [facility] Serum or plasma calcium alvaro urement (mass/volume)Ordered By: Shayy Curtis on 09-07-2024 Calcium [Mass/Vol] 8.7 mg/dL 7.6-11.0 [facility] Serum or plasma cholesterol in HDL measurement (mass/volume)Ordered By: Shayy Curtis 09-07-2024 Cholesterol in HDL [Mass/Vol] 28 mg/dL Low >40 [facility] Comment on above: National Cholesterol Education Program (NCEP) guidelines:<40 mg/dL: Low HDL-cholesterol (major risk factor for CHD)>= 60 mg/dL: High HDL-cholesterol (negative risk factor for CHD)HDL-cholesterol is affected by a number of factors, e.g. smoking, exercise, hormones, sex and age. Serum or plasma cholesterol measurement (mass/volume)Ordered By: Shayy Curtis 09-07-2024 Cholesterol [Mass/Vol] 105 mg/dL <201 [facility] Comment on above: Cholesterol level, D esirable <200 mg/dLBorderline high cholesterol 200-239 mg/dLHigh cholesterol >=240 mg/dLRecommendations of the NCEP Adult Treatment Panel for the following risk-cutoff thresholds for the [place] population. Serum or plasma urea nitroge n measurement (mass/volume)Ordered By: Shayy Curtis 09-07-2024 Urea nitrogen [Mass/Vol] 10 mg/dL 4-19 [facility] Sodium levelOrdered By: Latrice Curtis 09-07-2024 Sodium [Moles/Vol] 139 mmol/L 133-145 [facility] TSH DL <= 0.005 mIU/L QnOrde red By: Shayy Curtis 09-07-2024 TSH Qn 0.300 uIU/mL 0.300-4.20 0 [facility] Total proteinOrdered By: Yazan Curtis on 09-07-2024 Protein [Mass/Vol] 6.2 g/dL 5.9-8.4 [facility] Triglycerides measurementOrd ered By: Shayy Curtis on 09-07-2024 Triglyceride [Mass/Vol] 63 mg/dL <199 [facility] Comment on above: The drugs N-Acetylcy steine and Metamizole may falsely depress this assay. Normal range: <150 mg/dLBorderline High: 150-199 mg/dLHigh: 200-499 mg/dLVery High: >500 mg/dL Vitamin B12 ser/plasOrdered By: Shayy Curtis on 09-07-2024 Cobalamin (Vitamin B12) [Mass/Vol] 519 pg/mL 180-914 [facility] Absolute lymphocyte countOrd ered By: Navid Dominguez on 09-06-2024 Lymphocytes Auto (Unsp spec) [#/Vol] 1.28 10*3/uL 0.83-4.51 [facility] Absolute neutrophil countOrd ered By: Navid Dominguez on 09-06-2024 Neutrophils (Bld) [#/Vol] 5.2 10*3/uL 2.0-7.7 [facility] Anion gap in Serum or Plasma Ordered By: Navid Dominguez on 09-06-2024 Anion gap [Moles/Vol] 10 mmol/L 5-15 [facility] Automated blood erythrocyte countOrdered By: Navid Dominguez on 09-06-2024 RBC (Bld) [#/Vol] 4.39 10*6/uL Low 4.6-6.2 [facility] Comment on above: Performed By: #### L 100.0100, L500.2500, L300.3900 #### [facility] [address] [place], [address] Automated blood hematocrit ( percentage)Ordered By: Navid Dominguez on 09-06-2024 Hematocrit (Bld) [Volume fraction] 33.6 % Low 40-54 [facility] Comment on above: Performed By: #### L 100.0100, L500.2500, L300.3900 #### [facility] [address] [place], [address] Automated lymphocyte count a s percentage of total leukocytesOrdered By: Navid Dominguez on 09-06-2024 Lymphocytes/100 WBC Auto (Unsp spec) 16.4 % Low 19-41 [facility] BUN/creatinine ratioOrdered By: Navid Dominguez on 09-06-2024 Urea nitrogen/Creatinine [Mass ratio] 14.4 mg/mg 10-20 [facility] Basic Metabolic Profile (BMP )on 09-06-2024 BUN/CRE 14.4 RATIO Normal 10-20 [facility] Comment on above: Performed By: #### M 200.1000, L509.7001, L101.9900, L501.6710 #### [facility] [address] [place], [address] ECRCL 64.10 ml/min Normal 50-250 [facility] Comment on above: Performed By: #### M 200.1000, L509.7001, L101.9900, L501.6710 #### [facility] [address] [place], [address] GAP 10 Normal 5-15 [facility] Comment on above: Performed By: #### M 200.1000, L509.7001, L101.9900, L501.6710 #### [facility] [address] [place], [address] Potassium [Moles/Vol] 3.5 mmol/L Normal 3.3-5.1 [facility] Comment on above: Performed By: #### M 200.1000, L509.7001, L101.9900, L501.6710 #### [facility] [address] [place], [address] Basophil percentageOrdered B y: Navid Dominguez on 09-06-2024 Basophils/100 WBC (Bld) 1.0 % Normal 0-1 [facility] Comment on above: Performed By: #### L 100.0100, L500.2500, L300.3900 #### [facility] [address] [place], [address] CBC W/Diff, Automatedon 08-21-2024 Absolute Lymph 1.28 X10 3/uL Normal 0.83-4.51 [facility] Comment on above: Performed By: #### L 100.0100, L500.2500, L300.3900 #### [facility] [address] [place], [address] Absolute Neut 5.2 X10 3/uL Normal 2.0-7.7 [facility] Comment on above: Performed By: #### L 100.0100, L500.2500, L300.3900 #### [facility] [address] [place], [address] IG% 0.400 Normal 0.0-0.9 [facility] Comment on above: Result Comment: IG% - Immature Granulocytes (promyelocytes, myelocytes and metamyelocytes) > 1% indicates that a LEFT SHIFT is Present. Performed By: #### L 100.0100, L500.2500, L300.3900 #### [facility] [address] [place], [address] Lymphocytes/100 WBC (Bld) 16.4 % Low 19-41 [facility] Comment on above: Performed By: #### L 100.0100, L500.2500, L300.3900 #### [facility] [address] [place], [address] Nucleated RBC (Bld) [#/Vol] 0 10*3/uL Normal 0-5 [facility] Comment on above: Performed By: #### L 100.0100, L500.2500, L300.3900 #### [facility] [address] [place], [address] RDW SD 48.2 fl High 35.1-43.9 [facility] Comment on above: Performed By: #### L 100.0100, L500.2500, L300.3900 #### [facility] [address] [place], [address] Carbon dioxide, total [Moles /volume] in Central venous bloodOrdered By: Navid Dominguez on 09-06-2024 CO2 [Moles/Vol] 24.9 mmol/L Normal 21.0-32.0 [facility] Comment on above: Performed By: #### M 200.1000, L509.7001, L101.9900, L501.6710 #### [facility] [address] [place], [address] Chloride assayOrdered By: Cameron Dominguez on 09-06-2024 Chloride [Moles/Vol] 106 mmol/L Normal 98-108 [facility] Comment on above: Performed By: #### M 200.1000, L509.7001, L101.9900, L501.6710 #### [facility] [address] [place], [address] Eosinophil percentageOrdered By: Navid Dominguez on 09-06-2024 Eosinophils/100 WBC (Bld) 6.3 % High 0-5 [facility] Comment on above: Performed By: #### L 100.0100, L500.2500, L300.3900 #### [facility] [address] [place], [address] Erythrocyte distribution wid th ratioOrdered By: Navid Dominguez on 09-06-2024 Erythrocyte distribution width (RBC) [Ratio] 17.4 % High 11.6-14.6 [facility] Comment on above: Performed By: #### L 100.0100, L500.2500, L300.3900 #### [facility] [address] [place], [address] Erythrocyte distribution wid th standard deviationOrdered By: Navid Dominguez on 09-06-2024 Erythrocyte distribution width (RBC) [Ratio] 48.2 fl High 35.1-43.9 [facility] Glomerular filtration rate ( GFR) estimation/1.73 sq m using serum, plasma, or whole bOrdered By: Navid Dominguez on 09-06-2024 GFR/1.73 sq M.predicted among non-blacks MDRD (S/P/Bld) [Vol rate/Area] 87 mL/min/{1.73_m2} Normal >60 [facility] Comment on above: mL/min/1.73m2 CKD-EP I Creatinine Equation (2020) Result Comment: mL/m in/1.73m2 CKD-EPI Creatinine Equation (2020) Performed By: #### M 200.1000, L509.7001, L101.9900, L501.6710 #### [facility] [address] [place], [place], [id number] Hemoglobin measurementOrdere d By: Navid Dominguez on 09-06-2024 Hemoglobin (Bld) [Mass/Vol] 10.8 g/dL Low 13.0-16.5 [facility] Comment on above: Performed By: #### L 100.0100, L500.2500, L300.3900 #### [facility] [address] [place], [place], [id number] Immature granulocytes/100 WB C Auto (Bld)Ordered By: Navid Dominguez on 09-06-2024 Immature granulocytes/100 WBC (Bld) 0.400 % 0.0-0.9 [facility] Comment on above: IG% - Immature Granu locytes (promyelocytes, myelocytes and metamyelocytes) > 1% indicates that a LEFT SHIFT is Present. International normalized rat io (INR) calculationOrdered By: Navid Dominguez on 09-06-2024 INR Coag (Bld) [Relative time] 2.4 {INR} [facility] MCV (mean corpuscular volume ) determinationOrdered By: Navid Dominguez on 09-06-2024 MCV (RBC) [Entitic vol] 76.5 fL Low 80-94 [facility] Comment on above: Performed By: #### L 100.0100, L500.2500, L300.3900 #### [facility] [address] [place], [address] Mean corpuscular hemoglobin (MCH) determinationOrdered By: Navid Dominguez on 09-06-2024 MCH (RBC) [Entitic mass] 24.6 pg Low 27.0-32.0 [facility] Comment on above: Performed By: #### L 100.0100, L500.2500, L300.3900 #### [facility] [address] [place], [address] Mean corpuscular hemoglobin concentration (MCHC) determinationOrdered By: Navid Dominguez on 09-06-2024 MCHC (RBC) [Mass/Vol] 32.1 g/dL Normal 32-36 [facility] Comment on above: Performed By: #### L 100.0100, L500.2500, L300.3900 #### [facility] [address] [place], [address] Mean platelet volume determi nationOrdered By: Navid Dominguez on 09-06-2024 Platelet mean volume (Bld) [Entitic vol] 9.4 fL Normal 6.2-12.0 [facility] Comment on above: Performed By: #### L 100.0100, L500.2500, L300.3900 #### [facility] [address] [place], [address] Monocyte percentageOrdered B y: Navid Dominguez on 09-06-2024 Monocytes/100 WBC (Bld) 9.1 % Normal 0-10 [facility] Comment on above: Performed By: #### L 100.0100, L500.2500, L300.3900 #### [facility] [address] [place], [address] Neutrophil percentageOrdered By: Navid Dominguez on 09-06-2024 Neutrophils/100 WBC (Bld) 66.8 % Normal 47-70 [facility] Comment on above: Performed By: #### L 100.0100, L500.2500, L300.3900 #### [facility] [address] [place], [address] Nucleated red blood cell per centageOrdered By: Navid Dominguez on 09-06-2024 Nucleated RBC/100 WBC (Bld) [Ratio] 0 % 0-5 [facility] Platelet countOrdered By: Cameron Dominguez on 09-06-2024 Platelets (Bld) [#/Vol] 325 10*3/uL Normal 150-450 [facility] Comment on above: Performed By: #### L 100.0100, L500.2500, L300.3900 #### [facility] [address] [place], [address] Potassium measurement (mass/ volume)Ordered By: Navid Dominguez on 09-06-2024 Potassium (Unsp spec) [Mass/Vol] 3.5 mmol/L 3.3-5.1 [facility] Prothrombin Time w/INRon INR Coag (PPP) [Relative time] 2.4 {INR} Normal [facility] Comment on above: Performed By: #### M 200.1000, L509.7001, L101.9900, L501.6710 #### [facility] [address] [place], [address] Prothrombin timeOrdered By: Navid Dominguez on 09-06-2024 PT Coag (PPP) [Time] 27.0 s High 11.7-14.9 [facility] Comment on above: Performed By: #### M 200.1000, L509.7001, L101.9900, L501.6710 #### [facility] [address] [place], [address] Serum creatinine measurement (mass/volume)Ordered By: Navid Dominguez on 09-06-2024 Creatinine [Mass/Vol] 0.73 mg/dL Normal 0.70-1.20 [facility] Comment on above: Performed By: #### M 200.1000, L509.7001, L101.9900, L501.6710 #### [facility] [address] [place], [address] Serum glucose measurement (m ass/volume)Ordered By: Navid Dominguez on 09-06-2024 Glucose [Mass/Vol] 109 mg/dL High 70-99 [facility] Comment on above: Performed By: #### M 200.1000, L509.7001, L101.9900, L501.6710 #### [facility] [address] [place], [address] Serum or plasma calcium alvaro urement (mass/volume)Ordered By: Navid Dominguez on 09-06-2024 Calcium [Mass/Vol] 8.7 mg/dL Normal 7.6-11.0 [facility] Comment on above: Performed By: #### M 200.1000, L509.7001, L101.9900, L501.6710 #### [facility] [address] [place], [address] Serum or plasma urea nitroge n measurement (mass/volume)Ordered By: Navid Dominguez on 09-06-2024 Urea nitrogen [Mass/Vol] 11 mg/dL Normal 4-19 [facility] Comment on above: Performed By: #### M 200.1000, L509.7001, L101.9900, L501.6710 #### [facility] [address] [place], [address] Sodium levelOrdered By: Kamilah Dominguez on 09-06-2024 Sodium [Moles/Vol] 141 mmol/L Normal 133-145 [facility] Comment on above: Performed By: #### M 200.1000, L509.7001, L101.9900, L501.6710 #### [facility] [address] [place], [address] White blood cell (WBC) count Ordered By: Navid Dominguez on 09-06-2024 WBC (Bld) [#/Vol] 7.8 10*3/uL Normal 4.4-11.0 [facility] Comment on above: Performed By: #### L 100.0100, L500.2500, L300.3900 #### [facility] [address] [place], [address] Basic Metabolic Profile (BMP )on 09-05-2024 BUN/CRE 13.4 RATIO Normal 10-20 [facility] Comment on above: Performed By: #### M 200.1000, L509.7001, L101.9900, L501.6710 #### [facility] [address] [place], [address] Calcium [Mass/Vol] 8.6 mg/dL Normal 7.6-11.0 [facility] Comment on above: Performed By: #### M 200.1000, L509.7001, L101.9900, L501.6710 #### [facility] [address] [place], [address] Chloride [Moles/Vol] 105 mmol/L Normal 98-108 [facility] Comment on above: Performed By: #### M 200.1000, L509.7001, L101.9900, L501.6710 #### [facility] [address] [place], [address] CO2 [Moles/Vol] 21.9 mmol/L Normal 21.0-32.0 [facility] Comment on above: Performed By: #### M 200.1000, L509.7001, L101.9900, L501.6710 #### [facility] [address] [place], [address] Creatinine [Mass/Vol] 0.62 mg/dL Low 0.70-1.20 [facility] Comment on above: Performed By: #### M 200.1000, L509.7001, L101.9900, L501.6710 #### [facility] [address] [place], [address] ECRCL 64.10 ml/min Normal 50-250 [facility] Comment on above: Performed By: #### M 200.1000, L509.7001, L101.9900, L501.6710 #### [facility] [address] [place], [address] GAP 12 Normal 5-15 [facility] Comment on above: Performed By: #### M 200.1000, L509.7001, L101.9900, L501.6710 #### [facility] [address] [place], [address] GFR/1.73 sq M.predicted among non-blacks MDRD (S/P/Bld) [Vol rate/Area] 91 mL/min/{1.73_m2} Normal >60 [facility] Comment on above: Result Comment: mL/m in/1.73m2 CKD-EPI Creatinine Equation (2020) Performed By: #### M 200.1000, L509.7001, L101.9900, L501.6710 #### [facility] [address] [place], [address] Glucose [Mass/Vol] 119 mg/dL High 70-99 [facility] Comment on above: Performed By: #### M 200.1000, L509.7001, L101.9900, L501.6710 #### [facility] [address] [place], [address] Potassium [Moles/Vol] 3.3 mmol/L Normal 3.3-5.1 [facility] Comment on above: Performed By: #### M 200.1000, L509.7001, L101.9900, L501.6710 #### [facility] [address] [place], [address] Sodium [Moles/Vol] 139 mmol/L Normal 133-145 [facility] Comment on above: Performed By: #### M 200.1000, L509.7001, L101.9900, L501.6710 #### [facility] [address] [place], [address] Urea nitrogen [Mass/Vol] 8 mg/dL Normal 4-19 [facility] Comment on above: Performed By: #### M 200.1000, L509.7001, L101.9900, L501.6710 #### [facility] [address] [place], [address] Bilirubin Test strip Ql (U)O rdered By: Marta Black on 09-05-2024 Bilirubin Ql (U) Negative Negative [facility] CBC W/Diff, Automatedon 08-21 Absolute Lymph 0.96 X10 3/uL Normal 0.83-4.51 [facility] Comment on above: Performed By: #### M 200.1000, L509.7001, L101.9900, L501.6710 #### [facility] [address] [place], [address] Absolute Neut 7.6 X10 3/uL Normal 2.0-7.7 [facility] Comment on above: Performed By: #### M 200.1000, L509.7001, L101.9900, L501.6710 #### [facility] [address] [place], [address] Basophils/100 WBC (Bld) 0.7 % Normal 0-1 [facility] Comment on above: Performed By: #### M 200.1000, L509.7001, L101.9900, L501.6710 #### [facility] [address] [place], [address] Eosinophils/100 WBC (Bld) 4.0 % Normal 0-5 [facility] Comment on above: Performed By: #### M 200.1000, L509.7001, L101.9900, L501.6710 #### [facility] [address] [place], [address] Erythrocyte distribution width (RBC) [Ratio] 17.6 % High 11.6-14.6 [facility] Comment on above: Performed By: #### M 200.1000, L509.7001, L101.9900, L501.6710 #### [facility] [address] [place], [address] Hematocrit (Bld) [Volume fraction] 35.3 % Low 40-54 [facility] Comment on above: Performed By: #### M 200.1000, L509.7001, L101.9900, L501.6710 #### [facility] [address] [place], [address] Hemoglobin (Bld) [Mass/Vol] 11.3 g/dL Low 13.0-16.5 [facility] Comment on above: Performed By: #### M 200.1000, L509.7001, L101.9900, L501.6710 #### [facility] [address] [place], [address] IG% 0.400 Normal 0.0-0.9 [facility] Comment on above: Result Comment: IG% - Immature Granulocytes (promyelocytes, myelocytes and metamyelocytes) > 1% indicates that a LEFT SHIFT is Present. Performed By: #### M 200.1000, L509.7001, L101.9900, L501.6710 #### [facility] [address] [place], [address] Lymphocytes/100 WBC (Bld) 9.8 % Low 19-41 [facility] Comment on above: Performed By: #### M 200.1000, L509.7001, L101.9900, L501.6710 #### [facility] [address] [place], [address] MCH (RBC) [Entitic mass] 24.4 pg Low 27.0-32.0 [facility] Comment on above: Performed By: #### M 200.1000, L509.7001, L101.9900, L501.6710 #### [facility] [address] [place], [address] MCHC (RBC) [Mass/Vol] 32.0 g/dL Normal 32-36 [facility] Comment on above: Performed By: #### M 200.1000, L509.7001, L101.9900, L501.6710 #### [facility] [address] [place], [address] MCV (RBC) [Entitic vol] 76.2 fL Low 80-94 [facility] Comment on above: Performed By: #### M 200.1000, L509.7001, L101.9900, L501.6710 #### [facility] [address] [place], [address] Monocytes/100 WBC (Bld) 7.9 % Normal 0-10 [facility] Comment on above: Performed By: #### M 200.1000, L509.7001, L101.9900, L501.6710 #### [facility] [address] [place], [address] Neutrophils/100 WBC (Bld) 77.2 % High 47-70 [facility] Comment on above: Performed By: #### M 200.1000, L509.7001, L101.9900, L501.6710 #### [facility] [address] [place], [address] Nucleated RBC (Bld) [#/Vol] 0 10*3/uL Normal 0-5 [facility] Comment on above: Performed By: #### M 200.1000, L509.7001, L101.9900, L501.6710 #### [facility] [address] [place], [address] Platelet mean volume (Bld) [Entitic vol] 9.3 fL Normal 6.2-12.0 [facility] Comment on above: Performed By: #### M 200.1000, L509.7001, L101.9900, L501.6710 #### [facility] [address] [place], [address] Platelets (Bld) [#/Vol] 329 10*3/uL Normal 150-450 [facility] Comment on above: Performed By: #### M 200.1000, L509.7001, L101.9900, L501.6710 #### [facility] [address] [place], [address] RBC (Bld) [#/Vol] 4.63 10*6/uL Normal 4.6-6.2 [facility] Comment on above: Performed By: #### M 200.1000, L509.7001, L101.9900, L501.6710 #### [facility] [address] [place], [address] RDW SD 47.9 fl High 35.1-43.9 [facility] Comment on above: Performed By: #### M 200.1000, L509.7001, L101.9900, L501.6710 #### [facility] [address] [place], [address] WBC (Bld) [#/Vol] 9.8 10*3/uL Normal 4.4-11.0 [facility] Comment on above: Performed By: #### M 200.1000, L509.7001, L101.9900, L501.6710 #### [facility] [address] [place], [place], [id number] Ketones Test strip Ql (U)Ord ered By: Marta Black on 09-05-2024 Ketones Ql (U) Negative Negative [facility] Microscopic analysis of urin e for red blood cells (RBC)Ordered By: Marta Black on 09-05-2024 Microscopic analysis of urine for red blood cells (RBC) 0-5 SEEN /hpf 0-5 [facility] Mucus LM Ql (Urine sed)Order ed By: Marta Black on 09-05-2024 Mucus Ql (Urine sed) 0 SEEN /hpf [facility] Nitrite Test strip Ql (U)Ord ered By: Marta Black on 09-05-2024 Nitrite Ql (U) Negative Negative [facility] Protein Test strip Ql (U)Ord ered By: Marta Black on 09-05-2024 Protein Ql (U) 15 mg/dl High Negative [facility] Prothrombin Time w/INRon INR Coag (PPP) [Relative time] 2.2 {INR} Normal [facility] Comment on above: Performed By: #### M 200.1000, L509.7001, L101.9900, L501.6710 #### [facility] [address] [place], [address] PT Coag (PPP) [Time] 24.7 s High 11.7-14.9 [facility] Comment on above: Performed By: #### M 200.1000, L509.7001, L101.9900, L501.6710 #### [facility] [address] [place], [address] Squamous epithelial cells de tection in urine sediment by light microscopyOrdered By: Marta Black on 09-05-2024 Epithelial cells.squamous LM Ql (Urine sed) 0 SEEN /hpf 0-5 [facility] Urinalysis, Completeon 09-05 BACTERIA RARE Normal None Seen [facility] Comment on above: Order Comment: CLEAN CATCH Performed By: #### M 200.1000, L509.7001, L101.9900, L501.6710 #### [facility] [address] [place], [address] RBC 0-5 SEEN Normal 0-5 [facility] Comment on above: Order Comment: CLEAN CATCH Performed By: #### M 200.1000, L509.7001, L101.9900, L501.6710 #### [facility] [address] [place], [address] WBC 0-5 SEEN Normal 0-5 [facility] Comment on above: Order Comment: CLEAN CATCH Performed By: #### M 200.1000, L509.7001, L101.9900, L501.6710 #### [facility] [address] [place], [address] BILIRUBIN URINE Negative Normal Negative [facility] Comment on above: Order Comment: CLEAN CATCH Performed By: #### M 200.1000, L509.7001, L101.9900, L501.6710 #### [facility] [address] [place], [address] Clarity (U) Clear Normal Clear [facility] Comment on above: Order Comment: CLEAN CATCH Performed By: #### M 200.1000, L509.7001, L101.9900, L501.6710 #### [facility] [address] [place], [address] Color (U) Straw Normal Yellow [facility] Comment on above: Order Comment: CLEAN CATCH Performed By: #### M 200.1000, L509.7001, L101.9900, L501.6710 #### [facility] [address] [place], [address] GLUCOSE, UR Normal Normal Normal [facility] Comment on above: Order Comment: CLEAN CATCH Performed By: #### M 200.1000, L509.7001, L101.9900, L501.6710 #### [facility] [address] [place], [address] KETONE UR Negative Normal Negative [facility] Comment on above: Order Comment: CLEAN CATCH Performed By: #### M 200.1000, L509.7001, L101.9900, L501.6710 #### [facility] [address] [place], [address] LEUK ESTERASE Negative Normal Negative [facility] Comment on above: Order Comment: CLEAN CATCH Performed By: #### M 200.1000, L509.7001, L101.9900, L501.6710 #### [facility] [address] [place], [address] Nitrite Ql (U) Negative Normal Negative [facility] Comment on above: Order Comment: CLEAN CATCH Performed By: #### M 200.1000, L509.7001, L101.9900, L501.6710 #### [facility] [address] [place], [address] OCCULT BLOOD-UR 25 /ul Abnormal Negative [facility] Comment on above: Order Comment: CLEAN CATCH Performed By: #### M 200.1000, L509.7001, L101.9900, L501.6710 #### [facility] [address] [place], [address] pH UR 7.0 Normal 5.0 - 8.0 [facility] Comment on above: Order Comment: CLEAN CATCH Performed By: #### M 200.1000, L509.7001, L101.9900, L501.6710 #### [facility] [address] [place], [address] PROT DIPSTX 15 mg/dl Abnormal Negative [facility] Comment on above: Order Comment: CLEAN CATCH Performed By: #### M 200.1000, L509.7001, L101.9900, L501.6710 #### [facility] [address] [place], [address] SP.GR. DIPSTX 1.005 Normal 1.002-1.03 0 [facility] Comment on above: Order Comment: CLEAN CATCH Performed By: #### M 200.1000, L509.7001, L101.9900, L501.6710 #### [facility] [address] [place], [address] UROBILI Normal Normal Normal [facility] Comment on above: Order Comment: CLEAN CATCH Performed By: #### M 200.1000, L509.7001, L101.9900, L501.6710 #### [facility] [address] [place], [address] EPI,SQUAMOUS 0 SEEN Normal 0-5 [facility] Comment on above: Order Comment: CLEAN CATCH Performed By: #### M 200.1000, L509.7001, L101.9900, L501.6710 #### [facility] [address] [place], [address] Mucus Ql (Urine sed) 0 SEEN Normal [facility] Comment on above: Order Comment: CLEAN CATCH Performed By: #### M 200.1000, L509.7001, L101.9900, L501.6710 #### [facility] [address] [place], [address] Urine clarityOrdered By: Magnolia Black on 09-05-2024 Clarity (U) Clear Clear [facility] Urine color determinationOrd ered By: Marta Black on 09-05-2024 Color (U) Straw Yellow [facility] Urine glucose detectionOrder ed By: Marta Black on 09-05-2024 Glucose Ql (U) Normal mg/dl Normal [facility] Urine leukocyte esterase det ection by dipstickOrdered By: Marta Black on 09-05-2024 Leukocyte esterase Test strip Ql (U) Negative Negative [facility] Urine pHOrdered By: Marta Black on 09-05-2024 pH (U) 7.0 [pH] 5.0 - 8.0 [facility] Urine sediment bacteria coun t by microscopy (number/high power field)Ordered By: Marta Black on 09-05-2024 Bacteria LM.HPF (Urine sed) [#/Area] RARE /hpf None Seen [facility] Urine specific gravity measu rementOrdered By: Marta Black on 09-05-2024 Specific gravity (U) [Rel density] 1.005 1.002-1.03 0 [facility] Urine urobilinogen measureme ntOrdered By: Marta Black on 09-05-2024 Urobilinogen Ql (U) Normal mg/dl Normal [facility] White blood cell countOrdere d By: Marta Black on 09-05-2024 White blood cell count 0-5 SEEN /hpf 0-5 [facility] Basic Metabolic Profile (BMP )on 09-04-2024 BUN/CRE 17.3 RATIO Normal 10-20 [facility] Comment on above: Performed By: #### M 200.1000, L509.7001, L101.9900, L501.6710 #### [facility] [address] [place], [address] Calcium [Mass/Vol] 8.2 mg/dL Normal 7.6-11.0 [facility] Comment on above: Performed By: #### M 200.1000, L509.7001, L101.9900, L501.6710 #### [facility] [address] [place], [address] Chloride [Moles/Vol] 107 mmol/L Normal 98-108 [facility] Comment on above: Performed By: #### M 200.1000, L509.7001, L101.9900, L501.6710 #### [facility] [address] [place], [address] CO2 [Moles/Vol] 20.9 mmol/L Low 21.0-32.0 [facility] Comment on above: Performed By: #### M 200.1000, L509.7001, L101.9900, L501.6710 #### [facility] [address] [place], [address] Creatinine [Mass/Vol] 0.72 mg/dL Normal 0.70-1.20 [facility] Comment on above: Performed By: #### M 200.1000, L509.7001, L101.9900, L501.6710 #### [facility] [address] [place], [address] ECRCL 64.10 ml/min Normal 50-250 [facility] Comment on above: Performed By: #### M 200.1000, L509.7001, L101.9900, L501.6710 #### [facility] [address] [place], [address] GAP 11 Normal 5-15 [facility] Comment on above: Performed By: #### M 200.1000, L509.7001, L101.9900, L501.6710 #### [facility] [address] [place], [address] GFR/1.73 sq M.predicted among non-blacks MDRD (S/P/Bld) [Vol rate/Area] 87 mL/min/{1.73_m2} Normal >60 [facility] Comment on above: Result Comment: mL/m in/1.73m2 CKD-EPI Creatinine Equation (2020) Performed By: #### M 200.1000, L509.7001, L101.9900, L501.6710 #### [facility] [address] [place], [address] Glucose [Mass/Vol] 120 mg/dL High 70-99 [facility] Comment on above: Performed By: #### M 200.1000, L509.7001, L101.9900, L501.6710 #### [facility] [address] [place], [address] Potassium [Moles/Vol] 3.5 mmol/L Normal 3.3-5.1 [facility] Comment on above: Performed By: #### M 200.1000, L509.7001, L101.9900, L501.6710 #### [facility] [address] [place], [address] Sodium [Moles/Vol] 139 mmol/L Normal 133-145 [facility] Comment on above: Performed By: #### M 200.1000, L509.7001, L101.9900, L501.6710 #### [facility] [address] [place], [address] Urea nitrogen [Mass/Vol] 12 mg/dL Normal 4-19 [facility] Comment on above: Performed By: #### M 200.1000, L509.7001, L101.9900, L501.6710 #### [facility] [address] [place], [address] CBC W/Diff, Automatedon 08-21-2024 Absolute Lymph 0.89 X10 3/uL Normal 0.83-4.51 [facility] Comment on above: Performed By: #### M 200.1000, L509.7001, L101.9900, L501.6710 #### [facility] [address] [place], [address] Absolute Neut 8.9 X10 3/uL High 2.0-7.7 [facility] Comment on above: Performed By: #### M 200.1000, L509.7001, L101.9900, L501.6710 #### [facility] [address] [place], [address] Basophils/100 WBC (Bld) 0.8 % Normal 0-1 [facility] Comment on above: Performed By: #### M 200.1000, L509.7001, L101.9900, L501.6710 #### [facility] [address] [place], [address] Eosinophils/100 WBC (Bld) 5.3 % High 0-5 [facility] Comment on above: Performed By: #### M 200.1000, L509.7001, L101.9900, L501.6710 #### [facility] [address] [place], [address] Erythrocyte distribution width (RBC) [Ratio] 17.5 % High 11.6-14.6 [facility] Comment on above: Performed By: #### M 200.1000, L509.7001, L101.9900, L501.6710 #### [facility] [address] [place], [address] Hematocrit (Bld) [Volume fraction] 33.3 % Low 40-54 [facility] Comment on above: Performed By: #### M 200.1000, L509.7001, L101.9900, L501.6710 #### [facility] [address] [place], [address] Hemoglobin (Bld) [Mass/Vol] 10.7 g/dL Low 13.0-16.5 [facility] Comment on above: Performed By: #### M 200.1000, L509.7001, L101.9900, L501.6710 #### [facility] [address] [place], [address] IG% 0.400 Normal 0.0-0.9 [facility] Comment on above: Result Comment: IG% - Immature Granulocytes (promyelocytes, myelocytes and metamyelocytes) > 1% indicates that a LEFT SHIFT is Present. Performed By: #### M 200.1000, L509.7001, L101.9900, L501.6710 #### [facility] [address] [place], [address] Lymphocytes/100 WBC (Bld) 7.8 % Low 19-41 [facility] Comment on above: Performed By: #### M 200.1000, L509.7001, L101.9900, L501.6710 #### [facility] [address] [place], [address] MCH (RBC) [Entitic mass] 24.6 pg Low 27.0-32.0 [facility] Comment on above: Performed By: #### M 200.1000, L509.7001, L101.9900, L501.6710 #### [facility] [address] [place], [address] MCHC (RBC) [Mass/Vol] 32.1 g/dL Normal 32-36 [facility] Comment on above: Performed By: #### M 200.1000, L509.7001, L101.9900, L501.6710 #### [facility] [address] [place], [address] MCV (RBC) [Entitic vol] 76.6 fL Low 80-94 [facility] Comment on above: Performed By: #### M 200.1000, L509.7001, L101.9900, L501.6710 #### [facility] [address] [place], [address] Monocytes/100 WBC (Bld) 7.7 % Normal 0-10 [facility] Comment on above: Performed By: #### M 200.1000, L509.7001, L101.9900, L501.6710 #### [facility] [address] [place], [address] Neutrophils/100 WBC (Bld) 78.0 % High 47-70 [facility] Comment on above: Performed By: #### M 200.1000, L509.7001, L101.9900, L501.6710 #### [facility] [address] [place], [address] Nucleated RBC (Bld) [#/Vol] 0 10*3/uL Normal 0-5 [facility] Comment on above: Performed By: #### M 200.1000, L509.7001, L101.9900, L501.6710 #### [facility] [address] [place], [address] Platelet mean volume (Bld) [Entitic vol] 10.6 fL Normal 6.2-12.0 [facility] Comment on above: Performed By: #### M 200.1000, L509.7001, L101.9900, L501.6710 #### [facility] [address] [place], [address] Platelets (Bld) [#/Vol] 305 10*3/uL Normal 150-450 [facility] Comment on above: Performed By: #### M 200.1000, L509.7001, L101.9900, L501.6710 #### [facility] [address] [place], [address] RBC (Bld) [#/Vol] 4.35 10*6/uL Low 4.6-6.2 [facility] Comment on above: Performed By: #### M 200.1000, L509.7001, L101.9900, L501.6710 #### [facility] [address] [place], [address] RDW SD 48.3 fl High 35.1-43.9 [facility] Comment on above: Performed By: #### M 200.1000, L509.7001, L101.9900, L501.6710 #### [facility] [address] [place], [address] WBC (Bld) [#/Vol] 11.4 10*3/uL High 4.4-11.0 [facility] Comment on above: Performed By: #### M 200.1000, L509.7001, L101.9900, L501.6710 #### [facility] [address] [place], [address] Prothrombin Time w/INRon INR Coag (PPP) [Relative time] 1.9 {INR} Normal [facility] Comment on above: Performed By: #### L 300.3900 #### [facility] [address] [place], [address] PT Coag (PPP) [Time] 21.8 s High 11.7-14.9 [facility] Comment on above: Performed By: #### L 300.3900 #### [facility] [address] [place], [address] Basic Metabolic Profile (BMP )on 09-03-2024 BUN/CRE 13.3 RATIO Normal 10-20 [facility] Comment on above: Performed By: #### M 200.1000, L509.7001, L101.9900, L501.6710 #### [facility] [address] [place], [address] Calcium [Mass/Vol] 8.5 mg/dL Normal 7.6-11.0 [facility] Comment on above: Performed By: #### M 200.1000, L509.7001, L101.9900, L501.6710 #### [facility] [address] [place], [address] Chloride [Moles/Vol] 104 mmol/L Normal 98-108 [facility] Comment on above: Performed By: #### M 200.1000, L509.7001, L101.9900, L501.6710 #### [facility] [address] [place], [address] CO2 [Moles/Vol] 19.1 mmol/L Low 21.0-32.0 [facility] Comment on above: Performed By: #### M 200.1000, L509.7001, L101.9900, L501.6710 #### [facility] [address] [place], [address] Creatinine [Mass/Vol] 0.74 mg/dL Normal 0.70-1.20 [facility] Comment on above: Performed By: #### M 200.1000, L509.7001, L101.9900, L501.6710 #### [facility] [address] [place], [address] ECRCL 64.10 ml/min Normal 50-250 [facility] Comment on above: Performed By: #### M 200.1000, L509.7001, L101.9900, L501.6710 #### [facility] [address] [place], [address] GAP 13 Normal 5-15 [facility] Comment on above: Performed By: #### M 200.1000, L509.7001, L101.9900, L501.6710 #### [facility] [address] [place], [address] GFR/1.73 sq M.predicted among non-blacks MDRD (S/P/Bld) [Vol rate/Area] 87 mL/min/{1.73_m2} Normal >60 [facility] Comment on above: Result Comment: mL/m in/1.73m2 CKD-EPI Creatinine Equation (2020) Performed By: #### M 200.1000, L509.7001, L101.9900, L501.6710 #### [facility] [address] [place], [address] Glucose [Mass/Vol] 111 mg/dL High 70-99 [facility] Comment on above: Performed By: #### M 200.1000, L509.7001, L101.9900, L501.6710 #### [facility] [address] [place], [address] Potassium [Moles/Vol] 3.5 mmol/L Normal 3.3-5.1 [facility] Comment on above: Performed By: #### M 200.1000, L509.7001, L101.9900, L501.6710 #### [facility] [address] [place], [address] Sodium [Moles/Vol] 137 mmol/L Normal 133-145 [facility] Comment on above: Performed By: #### M 200.1000, L509.7001, L101.9900, L501.6710 #### [facility] [address] [place], [address] Urea nitrogen [Mass/Vol] 10 mg/dL Normal 4-19 [facility] Comment on above: Performed By: #### M 200.1000, L509.7001, L101.9900, L501.6710 #### [facility] [address] [place], [address] CBC W/Diff, Automatedon 06-1 -2024 Absolute Lymph 0.82 X10 3/uL Low 0.83-4.51 [facility] Comment on above: Performed By: #### M 200.1000, L509.7001, L101.9900, L501.6710 #### [facility] [address] [place], [address] Absolute Neut 10.2 X10 3/uL High 2.0-7.7 [facility] Comment on above: Performed By: #### M 200.1000, L509.7001, L101.9900, L501.6710 #### [facility] [address] [place], [address] Basophils/100 WBC (Bld) 0.7 % Normal 0-1 [facility] Comment on above: Performed By: #### M 200.1000, L509.7001, L101.9900, L501.6710 #### [facility] [address] [place], [address] Eosinophils/100 WBC (Bld) 2.8 % Normal 0-5 [facility] Comment on above: Performed By: #### M 200.1000, L509.7001, L101.9900, L501.6710 #### [facility] [address] [place], [address] Erythrocyte distribution width (RBC) [Ratio] 17.5 % High 11.6-14.6 [facility] Comment on above: Performed By: #### M 200.1000, L509.7001, L101.9900, L501.6710 #### [facility] [address] [place], [address] Hematocrit (Bld) [Volume fraction] 35.6 % Low 40-54 [facility] Comment on above: Performed By: #### M 200.1000, L509.7001, L101.9900, L501.6710 #### [facility] [facility] [address] [place], [address] Hemoglobin (Bld) [Mass/Vol] 11.3 g/dL Low 13.0-16.5 [facility] Comment on above: Performed By: #### M 200.1000, L509.7001, L101.9900, L501.6710 #### [facility] [address] [place], [address] IG% 0.400 Normal 0.0-0.9 [facility] Comment on above: Result Comment: IG% - Immature Granulocytes (promyelocytes, myelocytes and metamyelocytes) > 1% indicates that a LEFT SHIFT is Present. Performed By: #### M 200.1000, L509.7001, L101.9900, L501.6710 #### [facility] [address] [place], [address] Lymphocytes/100 WBC (Bld) 6.7 % Low 19-41 [facility] Comment on above: Performed By: #### M 200.1000, L509.7001, L101.9900, L501.6710 #### [facility] [address] [place], [address] MCH (RBC) [Entitic mass] 24.7 pg Low 27.0-32.0 [facility] Comment on above: Performed By: #### M 200.1000, L509.7001, L101.9900, L501.6710 #### [facility] [address] [place], [address] MCHC (RBC) [Mass/Vol] 31.7 g/dL Low 32-36 [facility] Comment on above: Performed By: #### M 200.1000, L509.7001, L101.9900, L501.6710 #### [facility] [address] [place], [address] MCV (RBC) [Entitic vol] 77.7 fL Low 80-94 [facility] Comment on above: Performed By: #### M 200.1000, L509.7001, L101.9900, L501.6710 #### [facility] [address] [place], [address] Monocytes/100 WBC (Bld) 6.0 % Normal 0-10 [facility] Comment on above: Performed By: #### M 200.1000, L509.7001, L101.9900, L501.6710 #### [facility] [address] [place], [address] Neutrophils/100 WBC (Bld) 83.4 % High 47-70 [facility] Comment on above: Performed By: #### M 200.1000, L509.7001, L101.9900, L501.6710 #### [facility] [address] [place], [address] Nucleated RBC (Bld) [#/Vol] 0 10*3/uL Normal 0-5 [facility] Comment on above: Performed By: #### M 200.1000, L509.7001, L101.9900, L501.6710 #### [facility] [address] [place], [address] Platelet mean volume (Bld) [Entitic vol] 9.9 fL Normal 6.2-12.0 [facility] Comment on above: Performed By: #### M 200.1000, L509.7001, L101.9900, L501.6710 #### [facility] [address] [place], [address] Platelets (Bld) [#/Vol] 252 10*3/uL Normal 150-450 [facility] Comment on above: Performed By: #### M 200.1000, L509.7001, L101.9900, L501.6710 #### [facility] [address] [place], [address] RBC (Bld) [#/Vol] 4.58 10*6/uL Low 4.6-6.2 [facility] Comment on above: Performed By: #### M 200.1000, L509.7001, L101.9900, L501.6710 #### [facility] [address] [place], [address] RDW SD 48.2 fl High 35.1-43.9 [facility] Comment on above: Performed By: #### M 200.1000, L509.7001, L101.9900, L501.6710 #### [facility] [address] [place], [address] WBC (Bld) [#/Vol] 12.3 10*3/uL High 4.4-11.0 [facility] Comment on above: Performed By: #### M 200.1000, L509.7001, L101.9900, L501.6710 #### [facility] [address] [place], [address] Prothrombin Time w/INRon INR Coag (PPP) [Relative time] 1.8 {INR} Normal [facility] Comment on above: Performed By: #### L 300.3900 #### [facility] [address] [place], [address] PT Coag (PPP) [Time] 20.9 s High 11.7-14.9 [facility] Comment on above: Performed By: #### L 300.3900 #### [facility] [address] [place], [address] Trough vancomycin levelOrder ed By: Marta Black on 09-03-2024 Vancomycin trough [Mass/Vol] 8.2 ug/mL 5.0-15.0 [facility] Comment on above: Recommended goal tro [...] therapy recommended for serious lifethreatening infections include:- Kiqxqfpxgo-Fdkpioatqsgk-Xravjucps (Ventilator/Healtcare Associated)-Sepsis PLEASE CONTACT PHARMACY SERVICES (#[id number]) FOR INTERPRETATIONOF RESULTS. Vancomycin, Trough Levelon 0 09-03-2024 VANCO, TROUGH 8.2 ug/mL Normal 5.0-15.0 [facility] Comment on above: Order Comment: Comme nts: Trough to be drawn 30 mins prior to scheduled [id number] Result Comment: Ilya mmended goal trough ranges [...] (Ventilator/Healtcare Associated) -Sepsis PLEASE CONTACT PHARMACY SERVICES (#[id number]) FOR INTERPRETATION OF RESULTS. Performed By: #### M 200.1000, L509.7001, L101.9900, L501.6710 #### [facility] [address] [place], [address] Basic Metabolic Profile (BMP )on 09-02-2024 BUN/CRE 18.9 RATIO Normal 10-20 [facility] Comment on above: Performed By: #### M 200.1000, L509.7001, L101.9900, L501.6710 #### [facility] [address] [place], [address] Calcium [Mass/Vol] 8.5 mg/dL Normal 7.6-11.0 [facility] Comment on above: Performed By: #### M 200.1000, L509.7001, L101.9900, L501.6710 #### [facility] [address] [place], [address] Chloride [Moles/Vol] 105 mmol/L Normal 98-108 [facility] Comment on above: Performed By: #### M 200.1000, L509.7001, L101.9900, L501.6710 #### [facility] [address] [place], [address] CO2 [Moles/Vol] 14.2 mmol/L Low 21.0-32.0 [facility] Comment on above: Performed By: #### M 200.1000, L509.7001, L101.9900, L501.6710 #### [facility] [address] [place], [address] Creatinine [Mass/Vol] 0.75 mg/dL Normal 0.70-1.20 [facility] Comment on above: Performed By: #### M 200.1000, L509.7001, L101.9900, L501.6710 #### [facility] [address] [place], [address] ECRCL 64.10 ml/min Normal 50-250 [facility] Comment on above: Performed By: #### M 200.1000, L509.7001, L101.9900, L501.6710 #### [facility] [address] [place], [address] GAP 15 Normal 5-15 [facility] Comment on above: Performed By: #### M 200.1000, L509.7001, L101.9900, L501.6710 #### [facility] [address] [place], [address] GFR/1.73 sq M.predicted among non-blacks MDRD (S/P/Bld) [Vol rate/Area] 86 mL/min/{1.73_m2} Normal >60 [facility] Comment on above: Result Comment: mL/m in/1.73m2 CKD-EPI Creatinine Equation (2020) Performed By: #### M 200.1000, L509.7001, L101.9900, L501.6710 #### [facility] [address] [place], [address] Glucose [Mass/Vol] 105 mg/dL High 70-99 [facility] Comment on above: Performed By: #### M 200.1000, L509.7001, L101.9900, L501.6710 #### [facility] [address] [place], [address] Potassium [Moles/Vol] 4.3 mmol/L Normal 3.3-5.1 [facility] Comment on above: Result Comment: Hemo lysis present, Results??could be affected. ?? Performed By: #### M 200.1000, L509.7001, L101.9900, L501.6710 #### [facility] [address] [place], [address] Sodium [Moles/Vol] 135 mmol/L Normal 133-145 [facility] Comment on above: Performed By: #### M 200.1000, L509.7001, L101.9900, L501.6710 #### [facility] [address] [place], [address] Urea nitrogen [Mass/Vol] 14 mg/dL Normal 4-19 [facility] Comment on above: Performed By: #### M 200.1000, L509.7001, L101.9900, L501.6710 #### [facility] [address] [place], [address] CBC W/Diff, Automatedon 06-03 25-2024 Absolute Lymph 0.52 X10 3/uL Low 0.83-4.51 [facility] Comment on above: Performed By: #### M 200.1000, L509.7001, L101.9900, L501.6710 #### [facility] [address] [place], [address] Absolute Neut 12.1 X10 3/uL High 2.0-7.7 [facility] Comment on above: Performed By: #### M 200.1000, L509.7001, L101.9900, L501.6710 #### [facility] [address] [place], [address] Basophils/100 WBC (Bld) 0.6 % Normal 0-1 [facility] Comment on above: Performed By: #### M 200.1000, L509.7001, L101.9900, L501.6710 #### [facility] [address] [place], [address] Eosinophils/100 WBC (Bld) 2.2 % Normal 0-5 [facility] Comment on above: Performed By: #### M 200.1000, L509.7001, L101.9900, L501.6710 #### [facility] [address] [place], [address] Erythrocyte distribution width (RBC) [Ratio] 17.8 % High 11.6-14.6 [facility] Comment on above: Performed By: #### M 200.1000, L509.7001, L101.9900, L501.6710 #### [facility] [address] [place], [address] Hematocrit (Bld) [Volume fraction] 39.9 % Low 40-54 [facility] Comment on above: Performed By: #### M 200.1000, L509.7001, L101.9900, L501.6710 #### [facility] [address] [place], [address] Hemoglobin (Bld) [Mass/Vol] 11.9 g/dL Low 13.0-16.5 [facility] Comment on above: Performed By: #### M 200.1000, L509.7001, L101.9900, L501.6710 #### [facility] [address] [place], [address] IG% 0.700 Normal 0.0-0.9 [facility] Comment on above: Result Comment: IG% - Immature Granulocytes (promyelocytes, myelocytes and metamyelocytes) > 1% indicates that a LEFT SHIFT is Present. Performed By: #### M 200.1000, L509.7001, L101.9900, L501.6710 #### [facility] [address] [place], [address] Lymphocytes/100 WBC (Bld) 3.8 % Low 19-41 [facility] Comment on above: Performed By: #### M 200.1000, L509.7001, L101.9900, L501.6710 #### [facility] [address] [place], [address] MCH (RBC) [Entitic mass] 24.5 pg Low 27.0-32.0 [facility] Comment on above: Performed By: #### M 200.1000, L509.7001, L101.9900, L501.6710 #### [facility] [address] [place], [address] MCHC (RBC) [Mass/Vol] 29.8 g/dL Low 32-36 [facility] Comment on above: Performed By: #### M 200.1000, L509.7001, L101.9900, L501.6710 #### [facility] [address] [place], [address] MCV (RBC) [Entitic vol] 82.3 fL Normal 80-94 [facility] Comment on above: Performed By: #### M 200.1000, L509.7001, L101.9900, L501.6710 #### [facility] [address] [place], [address] Monocytes/100 WBC (Bld) 4.8 % Normal 0-10 [facility] Comment on above: Performed By: #### M 200.1000, L509.7001, L101.9900, L501.6710 #### [facility] [address] [place], [address] Neutrophils/100 WBC (Bld) 87.9 % High 47-70 [facility] Comment on above: Performed By: #### M 200.1000, L509.7001, L101.9900, L501.6710 #### [facility] [address] [place], [address] Nucleated RBC (Bld) [#/Vol] 0 10*3/uL Normal 0-5 [facility] Comment on above: Performed By: #### M 200.1000, L509.7001, L101.9900, L501.6710 #### [facility] [address] [place], [address] Platelet mean volume (Bld) [Entitic vol] 10.6 fL Normal 6.2-12.0 [facility] Comment on above: Performed By: #### M 200.1000, L509.7001, L101.9900, L501.6710 #### [facility] [address] [place], [address] Platelets (Bld) [#/Vol] 227 10*3/uL Normal 150-450 [facility] Comment on above: Performed By: #### M 200.1000, L509.7001, L101.9900, L501.6710 #### [facility] [address] [place], [address] RBC (Bld) [#/Vol] 4.85 10*6/uL Normal 4.6-6.2 [facility] Comment on above: Performed By: #### M 200.1000, L509.7001, L101.9900, L501.6710 #### [facility] [address] [place], [address] RDW SD 52.3 fl High 35.1-43.9 [facility] Comment on above: Performed By: #### M 200.1000, L509.7001, L101.9900, L501.6710 #### [facility] [address] [place], [address] WBC (Bld) [#/Vol] 13.8 10*3/uL High 4.4-11.0 [facility] Comment on above: Performed By: #### M 200.1000, L509.7001, L101.9900, L501.6710 #### [facility] [address] [place], [address] Prothrombin Time w/INRon INR Coag (PPP) [Relative time] 1.9 {INR} Normal [facility] Comment on above: Performed By: #### M 200.1000, L509.7001, L101.9900, L501.6710 #### [facility] [address] [place], [address] PT Coag (PPP) [Time] 22.1 s High 11.7-14.9 [facility] Comment on above: Performed By: #### M 200.1000, L509.7001, L101.9900, L501.6710 #### [facility] [address] [place], [address] RESPIRATORY PANEL MOLECULARo n 09-02-2024 RP PANEL ADENOVIRUS Not Detected INFLUENZA A Not Detected INFLUENZA A (SUBTYPE H1) Not Detected INFLUENZA A (SUBTYPE H3) Not Detected INFLUENZA B Not Detected HUMAN METAPHNEUMO Not Detected PARAINFLUENZA 1 Not Detected PARAINFLUENZA 2 Not Detected PARAINFLUENZA 3 Not Detected PARAINFLUENZA 4 Not Detected RHINOVIRUS Not Detected RSV A Not Detected RSV B Not Detected Normal [facility] Comment on above: Performed By: #### M 200.1000, L509.7001, L101.9900, L501.6710 #### [facility] [address] [place], [address] Absolute lymphocyte countOrd ered By: Inderjit Gillespie on 09-01-2024 Lymphocytes Auto (Unsp spec) [#/Vol] 0.62 10*3/uL Low 0.83-4.51 [facility] Absolute neutrophil countOrd ered By: Inderjit Gillespie on 09-01-2024 Neutrophils (Bld) [#/Vol] 11.3 10*3/uL High 2.0-7.7 [facility] Anion gap in Serum or Plasma Ordered By: Inderjit Gillespie on 09-01-2024 Anion gap [Moles/Vol] 10 mmol/L 5-15 [facility] Automated lymphocyte count a s percentage of total leukocytesOrdered By: Inderjit Gillespie on 09-01-2024 Lymphocytes/100 WBC Auto (Unsp spec) 4.8 % Low 19-41 [facility] BUN/creatinine ratioOrdered By: Inderjit Gillespie on 09-01-2024 Urea nitrogen/Creatinine [Mass ratio] 21.6 mg/mg High 10-20 [facility] Basic Metabolic Profile (BMP )on 09-01-2024 BUN/CRE 21.6 RATIO High 10- [facility] Comment on above: Performed By: #### M 200.1000, L509.7001, L101.9900, L501.6710 #### [facility] [address] [place], [address] Calcium [Mass/Vol] 8.8 mg/dL Normal 7.6-11.0 [facility] Comment on above: Performed By: #### M 200.1000, L509.7001, L101.9900, L501.6710 #### [facility] [address] [place], [address] Chloride [Moles/Vol] 105 mmol/L Normal 98-108 [facility] Comment on above: Performed By: #### M 200.1000, L509.7001, L101.9900, L501.6710 #### [facility] [address] [place], [address] CO2 [Moles/Vol] 24.3 mmol/L Normal 21.0-32.0 [facility] Comment on above: Performed By: #### M 200.1000, L509.7001, L101.9900, L501.6710 #### [facility] [address] [place], [address] Creatinine [Mass/Vol] 0.77 mg/dL Normal 0.70-1.20 [facility] Comment on above: Performed By: #### M 200.1000, L509.7001, L101.9900, L501.6710 #### [facility] [address] [place], [address] ECRCL 68.71 ml/min Normal 50-250 [facility] Comment on above: Performed By: #### M 200.1000, L509.7001, L101.9900, L501.6710 #### [facility] [address] [place], [address] GAP 10 Normal 5-15 [facility] Comment on above: Performed By: #### M 200.1000, L509.7001, L101.9900, L501.6710 #### [facility] [address] [place], [address] GFR/1.73 sq M.predicted among non-blacks MDRD (S/P/Bld) [Vol rate/Area] 86 mL/min/{1.73_m2} Normal >60 [facility] Comment on above: Result Comment: mL/m in/1.73m2 CKD-EPI Creatinine Equation (2020) Performed By: #### M 200.1000, L509.7001, L101.9900, L501.6710 #### [facility] [address] [place], [address] Glucose [Mass/Vol] 112 mg/dL High 70-99 [facility] Comment on above: Performed By: #### M 200.1000, L509.7001, L101.9900, L501.6710 #### [facility] [address] [place], [address] Potassium [Moles/Vol] 3.7 mmol/L Normal 3.3-5.1 [facility] Comment on above: Performed By: #### M 200.1000, L509.7001, L101.9900, L501.6710 #### [facility] [address] [place], [address] Sodium [Moles/Vol] 139 mmol/L Normal 133-145 [facility] Comment on above: Performed By: #### M 200.1000, L509.7001, L101.9900, L501.6710 #### [facility] [address] [place], [address] Urea nitrogen [Mass/Vol] 17 mg/dL Normal 4-19 [facility] Comment on above: Performed By: #### M 200.1000, L509.7001, L101.9900, L501.6710 #### [facility] [address] [place], [address] Basophil percentageOrdered B y: Inderjit Gillespie on 09-01-2024 Basophils/100 WBC (Bld) 0.4 % 0-1 [facility] Bilirubin Test strip Ql (U)O rdered By: Inderjit Gillespie on 09-01-2024 Bilirubin Ql (U) Negative Negative [facility] Blood cultureOrdered By: Magnolia Black on 09-01-2024 Bacteria identified Cx Nom (Bld) No growth in 5 days. [facility] Brain/Head without Contrasto n 09-01-2024 Brain/Head without Contrast [facility] [address] [place] [address] Brain/Head without Contrast MR#: [id number] Acct: [id number] Name: ROBY FLORES Rep #: [id number] : 1935 M 89 From: Jose harris MD PCP: Dr. Stas Mora MD Status: REG ER Study: Brain/Head without Contrast Date of Exam: 08/21 05/17 Exam# [id number] Ordering Dr: Inderjit Gillespie MD PROCEDURE: BRAIN/HEAD [...] of the left maxillary sinus. Reading Location: [place] [address] CC: Dr. Inderjit Gillespie MD; Dr. Stas Mora MD Dip Filler: Signed Normal [facility] CBC W/Diff, Automatedon 08-21 Absolute Lymph 0.62 X10 3/uL Low 0.83-4.51 [facility] Comment on above: Performed By: #### M 200.1000, L509.7001, L101.9900, L501.6710 #### [facility] [address] [place], [address] Absolute Neut 11.3 X10 3/uL High 2.0-7.7 [facility] Comment on above: Performed By: #### M 200.1000, L509.7001, L101.9900, L501.6710 #### [facility] [address] [place], [address] Basophils/100 WBC (Bld) 0.4 % Normal 0-1 [facility] Comment on above: Performed By: #### M 200.1000, L509.7001, L101.9900, L501.6710 #### [facility] [address] [place], [address] Eosinophils/100 WBC (Bld) 1.2 % Normal 0-5 [facility] Comment on above: Performed By: #### M 200.1000, L509.7001, L101.9900, L501.6710 #### [facility] [address] [place], [address] Erythrocyte distribution width (RBC) [Ratio] 17.2 % High 11.6-14.6 [facility] Comment on above: Performed By: #### M 200.1000, L509.7001, L101.9900, L501.6710 #### [facility] [address] [place], [address] Hematocrit (Bld) [Volume fraction] 36.8 % Low 40-54 [facility] Comment on above: Performed By: #### M 200.1000, L509.7001, L101.9900, L501.6710 #### [facility] [address] [place], [address] Hemoglobin (Bld) [Mass/Vol] 11.6 g/dL Low 13.0-16.5 [facility] Comment on above: Performed By: #### M 200.1000, L509.7001, L101.9900, L501.6710 #### [facility] [address] [place], [address] IG% 0.400 Normal 0.0-0.9 [facility] Comment on above: Result Comment: IG% - Immature Granulocytes (promyelocytes, myelocytes and metamyelocytes) > 1% indicates that a LEFT SHIFT is Present. Performed By: #### M 200.1000, L509.7001, L101.9900, L501.6710 #### [facility] [address] [place], [address] Lymphocytes/100 WBC (Bld) 4.8 % Low 19-41 [facility] Comment on above: Performed By: #### M 200.1000, L509.7001, L101.9900, L501.6710 #### [facility] [address] [place], [address] MCH (RBC) [Entitic mass] 24.6 pg Low 27.0-32.0 [facility] Comment on above: Performed By: #### M 200.1000, L509.7001, L101.9900, L501.6710 #### [facility] [address] [place], [address] MCHC (RBC) [Mass/Vol] 31.5 g/dL Low 32-36 [facility] Comment on above: Performed By: #### M 200.1000, L509.7001, L101.9900, L501.6710 #### [facility] [address] [place], [address] MCV (RBC) [Entitic vol] 78.0 fL Low 80-94 [facility] Comment on above: Performed By: #### M 200.1000, L509.7001, L101.9900, L501.6710 #### [facility] [address] [place], [address] Monocytes/100 WBC (Bld) 5.7 % Normal 0-10 [facility] Comment on above: Performed By: #### M 200.1000, L509.7001, L101.9900, L501.6710 #### [facility] [address] [place], [address] Neutrophils/100 WBC (Bld) 87.5 % High 47-70 [facility] Comment on above: Performed By: #### M 200.1000, L509.7001, L101.9900, L501.6710 #### [facility] [address] [place], [address] Nucleated RBC (Bld) [#/Vol] 0 10*3/uL Normal 0-5 [facility] Comment on above: Performed By: #### M 200.1000, L509.7001, L101.9900, L501.6710 #### [facility] [address] [place], [address] Platelet mean volume (Bld) [Entitic vol] 9.4 fL Normal 6.2-12.0 [facility] Comment on above: Performed By: #### M 200.1000, L509.7001, L101.9900, L501.6710 #### [facility] [address] [place], [address] Platelets (Bld) [#/Vol] 258 10*3/uL Normal 150-450 [facility] Comment on above: Performed By: #### M 200.1000, L509.7001, L101.9900, L501.6710 #### [facility] [address] [place], [address] RBC (Bld) [#/Vol] 4.72 10*6/uL Normal 4.6-6.2 [facility] Comment on above: Performed By: #### M 200.1000, L509.7001, L101.9900, L501.6710 #### [facility] [address] [place], [address] RDW SD 48.2 fl High 35.1-43.9 [facility] Comment on above: Performed By: #### M 200.1000, L509.7001, L101.9900, L501.6710 #### [facility] [address] [place], [address] WBC (Bld) [#/Vol] 12.9 10*3/uL High 4.4-11.0 [facility] Comment on above: Performed By: #### M 200.1000, L509.7001, L101.9900, L501.6710 #### [facility] [address] [place], [address] CNPNon 09-01-[address] [facility] Telephone (PHMEWO) ROBY FLORES ([id number]) 1935 M Date Time Provider Department 09/01/24 RUSSELL AGUAYO PHMEWO During your visit today, we recorded the following information about you: Russell Aguayo [facility] 09/01/2024 10:01 AM Signed PCP reached out [...] ~$30. If he switches the prescription to [facility], he can get a 1 mo supply for ~$20. See coupons below. Rivastigmine patches are also available via GoodRx. It appears the cheapest option is through [facility], in which he can get 30 patches for $52. Coupon also below. Sending to PCP to review and provide patient with coupon card information. Russell Aguayo, Saúl, [facility] Primary Care Clinical Pharmacist Memantine coupon at [facility] Memantine coupon at [facility] Rivastigmine patches coupon at [facility] Luciana Cisneros MD 09/01/2024 1:27 PM Signed Rahul Chau, Staff please let patient know what the pharmacist as opined on. 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, [address] COVID-19 virus antigen assay Ordered By: Marta Black on 09-01-2024 SARS-CoV-2 (COVID-19) Ag IA.rapid Ql (Resp) [facility] CRPon 09-01-2024 C-REACTIVE PROT 26.80 mg/L High 0.0-3.0 [facility] Comment on above: Performed By: #### M 200.1000, L509.7001, L101.9900, L501.6710 #### [facility] [address] [place], [address] Carbon dioxide, total [Moles /volume] in Central venous bloodOrdered By: Inderjit Gillespie on 09-01-2024 CO2 [Moles/Vol] 24.3 mmol/L 21.0-32.0 [facility] Chest 1 View (Portable)on Chest 1 View (Portable) [facility] Imaging Services [address] [place], [place] [address] Chest 1 View (Portable) MR#: [id number] Acct: [id number] Name: ROBY FLORES Rep #: [id number] : 1935 M 89 From: Jose harris MD PCP: Dr. Stas Mora MD Status: REG ER Study: Chest 1 View (Portable) Date of Exam: 09/01/24 Exam# [id number] Ordering Dr: Inderjit Gillespie MD PROCEDURE: CHEST [...] No acute abnormality is seen. Reading Location: [facility] CC: Dr. Inderjit Gillespie MD; Dr. Stas Mora MD Dip Filler: Signed Normal [facility] Chloride assayOrdered By: Aries Gillespie on 09-01-2024 Chloride [Moles/Vol] 105 mmol/L 98-108 [facility] Emergency Department Summary on 09-01-2024 Emergency Department Summary [facility] Medical Records Department [address] [place] [address] Emergency Department Summary 09/01/24 MR#: [id number] Acct: [id number] Name: ROBY FLORES Rep #: [id number] : 1935 89 From: Inderjit Gillespie MD [...] shoulders elbows and wrist. He has normal clinical investigator strength. Neurologically he is awake alert. Answering [...] Air 09/01/24 (more content not included)... Normal [facility] Eosinophil percentageOrdered By: Inderjit Gillespie on 09-01-2024 Eosinophils/100 WBC (Bld) 1.2 % 0-5 [facility] Erythrocyte Sed Rateon 09-01 SED RATE 2 mm/hr Normal 0-20 [facility] Comment on above: Performed By: #### M 200.1000, L509.7001, L101.9900, L501.6710 #### [facility] [place], [address] Erythrocyte distribution wid th ratioOrdered By: Inderjit Gillespie on 09-01-2024 Erythrocyte distribution width (RBC) [Ratio] 17.2 % High 11.6-14.6 [facility] Erythrocyte distribution wid th standard deviationOrdered By: Inderjit Gillespie on 09-01-2024 Erythrocyte distribution width (RBC) [Ratio] 48.2 fl High 35.1-43.9 [facility] Erythrocyte sedimentation ra teOrdered By: Marta Black on 09-01-2024 ESR (Bld) [Velocity] 2 mm/h 0-20 [facility] Glomerular filtration rate ( GFR) estimation/1.73 sq m using serum, plasma, or whole bOrdered By: Inderjit Gillespie on 09-01-2024 GFR/1.73 sq M.predicted among non-blacks MDRD (S/P/Bld) [Vol rate/Area] 86 mL/min/{1.73_m2} >60 [facility] Comment on above: mL/min/1.73m2 CKD-EP I Creatinine Equation (2020) H AND P Exam - [facility] 09-01-2024 H&P Exam - Hospitalist [facility] Medical Records Department [address] [place] [address] H P Exam - Hospitalist 09/01/24 1018 MR#: [id number] Acct: [id number] Name: ROBY FLORES Rep #: [id number] : 1935 89 From: Kathy Wells MD PCP: Dr. Stas Mora MD Status:ADM GERMAN Location: [address] HPI - General General Date of [...] in the ED were BP of 180/89, DC of 87, RR of 18 and temp [...] debility and weakness due to mechanical fall. [facility] Medical History Chronic anticoagulation TIA (transient [...] 99 Oxy (more content not included)... Normal [facility] Hematocrit Auto (Bld) [Volum e fraction]Ordered By: Inderjit Gillespie on 09-01-2024 Hematocrit (Bld) [Volume fraction] 36.8 % Low 40-54 [facility] Hemoglobin measurementOrdere d By: Inderjit Gillespie on 09-01-2024 Hemoglobin (Bld) [Mass/Vol] 11.6 g/dL Low 13.0-16.5 [facility] Hips B/L min 2 views w/ Pelv adolfo 09-01-2024 Hips B/L min 2 views w/ Pelvis [facility] Imaging Services [address] [place] [address] Hips B/L min 2 views w/ Pelvis MR#: [id number] Acct: [id number] Name: SANDRAROBY Radha Rep #: [id number] : 1935 M 89 From: Jose harris MD PCP: Dr. Stas Mora MD Status: REG ER Study: Hips B/L min 2 views w/ Pelvis Date of Exam: 0 09/01/24 Exam# [id number] Ordering Dr: Inderjit Gillespie MD PROCEDURE: HIPS [...] No fracture or dislocation present. Reading Location: [place] [address] CC: Dr. Inderjit Gillespie MD; Dr. Stas Mora MD Dip Filler: Signed Normal [facility] Immature granulocytes/100 WB C Auto (Bld)Ordered By: Inderjit Gillespie on 09-01-2024 Immature granulocytes/100 WBC (Bld) 0.400 % 0.0-0.9 [facility] Comment on above: IG% - Immature Granu locytes (promyelocytes, myelocytes and metamyelocytes) > 1% indicates that a LEFT SHIFT is Present. International normalized rat io (INR) calculationOrdered By: Inderjit Gillespie on 09-01-2024 INR Coag (Bld) [Relative time] 1.8 {INR} [facility] Ketones Test strip Ql (U)Ord ered By: Inderjit Gillespie on 09-01-2024 Ketones Ql (U) Negative Negative [facility] L509.7001on 09-01-2024 Procalcitonin 0.07 ng/mL Normal <=0.10 [facility] Comment on above: Result Comment: Inte [...] #### M 200.1000, L509.7001, L101.9900, L501.6710 #### [facility] [address] [place], [address] MCV (mean corpuscular volume ) determinationOrdered By: Inderjit Gillespie on 09-01-2024 MCV (RBC) [Entitic vol] 78.0 fL Low 80-94 [facility] Mean corpuscular hemoglobin (MCH) determinationOrdered By: Inderjit Gillespie on 09-01-2024 MCH (RBC) [Entitic mass] 24.6 pg Low 27.0-32.0 [facility] Mean corpuscular hemoglobin concentration (MCHC) determinationOrdered By: Inderjit Gillespie on 09-01-2024 MCHC (RBC) [Mass/Vol] 31.5 g/dL Low 32-36 [facility] Mean platelet volume determi nationOrdered By: Inderjit Gillespie on 09-01-2024 Platelet mean volume (Bld) [Entitic vol] 9.4 fL 6.2-12.0 [facility] Microscopic analysis of urin e for red blood cells (RBC)Ordered By: Inderjit Gillespie on 09-01-2024 Microscopic analysis of urine for red blood cells (RBC) 0 SEEN /hpf 0- [facility] Monocyte percentageOrdered B y: Inderjit Gillespie on 09-01-2024 Monocytes/100 WBC (Bld) 5.7 % 0-10 [facility] Mucus LM Ql (Urine sed)Order ed By: Inderjit Gillespie on 09-01-2024 Mucus Ql (Urine sed) 0 SEEN /hpf [facility] Neutrophil percentageOrdered By: Inderjit Gillespie on 09-01-2024 Neutrophils/100 WBC (Bld) 87.5 % High 47-70 [facility] Nitrite Test strip Ql (U)Ord ered By: Inderjit Gillespie on 09-01-2024 Nitrite Ql (U) Negative Negative [facility] Nucleated red blood cell per centageOrdered By: Inderjit Gillespie on 09-01-2024 Nucleated RBC/100 WBC (Bld) [Ratio] 0 % 0-5 [facility] Platelet countOrdered By: Aries Gillespie on 09-01-2024 Platelets (Bld) [#/Vol] 258 10*3/uL 150-450 [facility] Potassium measurement (mass/ volume)Ordered By: Inderjit Gillespie on 09-01-2024 Potassium (Unsp spec) [Mass/Vol] 3.7 mmol/L 3.3-5.1 [facility] Procalcitonin [Mass/volume] in Serum or Plasma by ImmunoassayOrdered By: Marta Black on 09-01-2024 Procalcitonin IA [Mass/Vol] 0.07 ng/mL <0.11 [facility] Comment on above: Interpretation:<0.10 -0.25 ng/mL: [...] Protein Ql (U) 15 mg/dl High Negative [facility] Prothrombin Time w/INRon INR Coag (PPP) [Relative time] 1.8 {INR} Normal [facility] Comment on above: Performed By: #### M 200.1000, L509.7001, L101.9900, L501.6710 #### [facility] [address] [place], [address] PT Coag (PPP) [Time] 21.4 s High 11.7-14.9 [facility] Comment on above: Performed By: #### M 200.1000, L509.7001, L101.9900, L501.6710 #### [facility] [address] [place], [address] Prothrombin timeOrdered By: Inderjit Gillespie on 09-01-2024 PT Coag (PPP) [Time] 21.4 s High 11.7-14.9 [facility] RBC Auto (Bld) [#/Vol]Ordere d By: Inderjit Gillespie on 09-01-2024 RBC (Bld) [#/Vol] 4.72 10*6/uL 4.6-6.2 [facility] Respiratory pathogens detect ion panel by molecular detection methodOrdered By: Marta Black on 09-01-2024 Respiratory pathogens DNA and RNA panel LOLI+probe (Resp) [facility] Serum creatinine measurement (mass/volume)Ordered By: Inderjit Gillespie on 09-01-2024 Creatinine [Mass/Vol] 0.77 mg/dL 0.70-1.20 [facility] Serum glucose measurement (m ass/volume)Ordered By: Inderjit Gillespie on 09-01-2024 Glucose [Mass/Vol] 112 mg/dL High 70-99 [facility] Serum or plasma C reactive p rotein measurement (mass/volume)Ordered By: Marta Black on 09-01-2024 CRP [Mass/Vol] 26.80 mg/L High 0.0-3.0 [facility] Serum or plasma calcium alvaro urement (mass/volume)Ordered By: Inderjit Gillespie on 09-01-2024 Calcium [Mass/Vol] 8.8 mg/dL 7.6-11.0 [facility] Serum or plasma urea nitroge n measurement (mass/volume)Ordered By: Inderjit Gillespie on 09-01-2024 Urea nitrogen [Mass/Vol] 17 mg/dL 4-19 [facility] Sodium levelOrdered By: Inderjit Gillespie on 09-01-2024 Sodium [Moles/Vol] 139 mmol/L 133-145 [facility] Squamous epithelial cells de tection in urine sediment by light microscopyOrdered By: Inderjit Gillespie on 09-01-2024 Epithelial cells.squamous LM Ql (Urine sed) 0 SEEN /hpf 0-5 [facility] Urinalysis, Completeon 09-01 BACTERIA 0 SEEN Normal None Seen [facility] Comment on above: Order Comment: CLEAN CATCH Performed By: #### L 400.0001 #### [facility] [address] [place], [address] EPI,SQUAMOUS 0 SEEN Normal 0-5 [facility] Comment on above: Order Comment: CLEAN CATCH Performed By: #### L 400.0001 #### [facility] [address] [place], [place], [address] Mucus Ql (Urine sed) 0 SEEN Normal [facility] Comment on above: Order Comment: CLEAN CATCH Performed By: #### L 400.0001 #### [facility] [address] [place], [address] RBC 0 SEEN Normal 0-5 [facility] Comment on above: Order Comment: CLEAN CATCH Performed By: #### L 400.0001 #### [facility] [address] [place], [address] WBC 0 SEEN Normal 0-5 [facility] Comment on above: Order Comment: CLEAN CATCH Performed By: #### L 400.0001 #### [facility] [address] [place], [place], [address] Urine clarityOrdered By: Mario Gillespie on 09-01-2024 Clarity (U) Clear Clear [facility] Urine color determinationOrd ered By: Inderjit Gillespie on 09-01-2024 Color (U) Yellow Yellow [facility] Urine glucose detectionOrder ed By: Inderjit Gillespie on 09-01-2024 Glucose Ql (U) Normal mg/dl Normal [facility] Urine leukocyte esterase det ection by dipstickOrdered By: Inderjit Gillespie on 09-01-2024 Leukocyte esterase Test strip Ql (U) Negative Negative [facility] Urine pHOrdered By: Inderjit pack on 09-01-2024 pH (U) 8.0 [pH] 5.0 - 8.0 [facility] Urine sediment bacteria coun t by microscopy (number/high power field)Ordered By: Inderjit Gillespie on 09-01-2024 Bacteria LM.HPF (Urine sed) [#/Area] 0 /[HPF] None Seen [facility] Urine specific gravity measu rementOrdered By: Inderjit Gillespie on 09-01-2024 Specific gravity (U) [Rel density] 1.010 1.002-1.03 0 [facility] Urine urobilinogen measureme ntOrdered By: Inderjit Gillespie on 09-01-2024 Urobilinogen Ql (U) 4 mg/dl High Normal [facility] White blood cell (WBC) count Ordered By: Inderjit Gillespie on 09-01-2024 WBC (Bld) [#/Vol] 12.9 10*3/uL High 4.4-11.0 [facility] White blood cell countOrdere d By: Inderjit Gillespie on 09-01-2024 White blood cell count 0 SEEN /hpf 0-5 [facility] CNOVon 08-31-2024 CNOV Office Visit (RAMBOR ) SANDRAROBY E ([id number]) 1935 M Date Time Provider Department 08/31/24 [...] and believing his brother, who lives in [place], was present. 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 Additionally, [...] included)... 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 Coretta Jalloh RPh 09/28/2024 11:30 AM Signed Per TE on 09/21, pt is in [facility] living for rehab. He has been for for nearly 3 weeks now. Will check back next week before we call Maria Guadalupe. Will watch for notes of discharge. Coretta Jalloh [facility] Hakan Jallohantha [facility] 10/05/2024 2:05 PM Signed Spoke to Maria Guadalupe. She said he is at an [facility] Facility and they are managing his AC but she isn't aware of results. She isn't sure of discharge timing. She said maybe check back in a few weeks. Will check back in October for any updates. Coretta Jalloh [facility] Adrian (Dice Manager)Elana 10/27/2024 4:17 PM Signed Updating PCC LTC / Rehab list. Called and stp patient's significant other, Maria Guadalupe. She stated patient is still in SNF at this time. She was agreeable to f/u in a few weeks. Tracker updated for f/u in 2-3 weeks. Elana Campbell CPhT (Brass Plater) Pharmacy Anticoagulation Clinic Satish (Dice Manager)Parmjit 11/25/2024 3:45 PM Signed Left message requesting an update. Patient has appt with PCP 12/05. Will update tracker to that day to see if there are any updates. Adrian (Dice Manager)Elana 12/08/2024 4:41 PM Signed Updating PCC LTC / Rehab list. Attempted to call patient's caregiver, Maria Guadalupe, to get update on LTC/SNF status. Message left requesting a return call to [phone], option 2. Elana Campbell CPhT ([facility]ass Pl[facility]) Pharmacy [facility]tico[facility] Adrian (Dice Manager), Elana 12/22/2024 3:52 PM Signed Updating PCC LTC / Rehab list. Attempted to call patient's caregiver, Maria Guadalupe, to get update on LTC/SNF status. Message left requesting a return call to [phone], option 2. Elana Campbell CPhT (Brass Pl[facility]) [facility]acy [facility] Adrian (Dice Manager), Elana 12/29/2024 5:26 PM Signed Updating PCC LTC / Rehab list. Attempted to call patient's caregiver, Maria Guadalupe, to get update on LTC/SNF status. Message left requesting a return call to [phone], option 2. Elana Campbell CPhT (Brass Plater) Pharmacy [facility]ticoagulation Clinic Adrian (Dice Manager), (more content not included)... Normal [facility] PT panel Coag (PPP)on 2024 INR Coag (PPP) [Relative time] 1.9 {INR} High 0.9-1.3 [facility] Comment on above: Order Comment: Stone parmar Type: BLOOD SPECIMENOrdering Facility: [facility] Address: [address] [place] [address] Result Comment: Mary min K Antagonist (VKA) Therapeutic Range: INR 2 to 3 (Target INR of 2.5) Note: For patients treated with VKA drugs, such as warfarin, the [employer] 2012 Guideline recommends [...] Chest 2012, 141:7S-47S Avel RA, et al. [facility] 2017, 70: 252-289 Performed By: #### 3 4528-0 ####[facility] HE[facility] SYSTEMSNCRachel [id number] [place] [address] [place] PT Coag (PPP) [Time] 19.2 s High <13.1 [facility] Comment on above: Order Comment: Stone parmar Type: BLOOD SPECIMENOrdering Facility: [facility] Address: [address] [place] [address] Performed By: #### 3 4528-0 ####[facility] SYSTEMSJERMAIN [id number] [place] [id number] [place] Gene 08-03-2024 CNPN Telephone (PHAMTE) ROBY FLORES ([id number]) 1935 M Date Time Provider Department 08/03/24 CORETTA JALLOH During your visit today, we recorded the following information about you: Coretta Jalloh [facility] 08/03/2024 10:52 AM Signed [facility] Anticoagulation Clinic Anticoagulation Episode Summary Anticoagulation Care Providers Provider Role Specialty Phone number Stas Mora MD Referring Family Medicine [phone] Roby Flores is a 88 year old [...] ALLERGIES No Known Allergies Indication for Warfarin: alf 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 Coretta Jalloh [facility] Clinical Pharmacist, Pharmacy Anticoagulation Clinic Pharmacy Anticoagulation Clinic Pager: [phone]. Adrian ([place])Elana 08/03/2024 11:01 AM Signed PATIENT CALL Patient [...] verbalized understanding. Will route to [facility] as FYI. Elana Campbell ([place]) Coretta Jalloh riya 08/03/2024 11:20 AM Signed I have reviewed the below recommendations and agree with plan. 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] 04/24/2011 alf current use of anticoagulant [Z79.01]09/22/2016 Paroxysmal atrial fibrillation (HCC) [I48.0] 09/22/2016 Hyperlipidemia [E78.5] 08/26/2022 Encounter Status:Closed by CORETTA JALLOH on 08/03/24 Normal [facility] PT panel Coag (PPP)on 2024 INR Coag (PPP) [Relative time] 2.5 {INR} High 0.9-1.3 [facility] Comment on above: Order Comment: Speci men Type: BLOOD SPECIMEN Ordering Facility: [facility] Address: [address] [place] [address] Result Comment: Mary min K Antagonist (VKA) Therapeutic Range: INR 2 to 3 (Target INR of 2.5) Note: For patients treated with VKA drugs, such as warfarin, the [employer] 2012 Guideline recommends [...] Chest 2012, 141:7S-47S Avel RA, et al. [facility] 2017, 70: 252-289 Performed By: #### 3 4528-0 #### [facility] [id number] [address] [place] [address] [place] PT Coag (PPP) [Time] 24.3 s High <13.1 [facility] Comment on above: Order Comment: Speci men Type: BLOOD SPECIMEN Ordering Facility: [facility] Address: [address] [place] [address] Performed By: #### 3 4528-0 #### [facility] [id number] [address] [place] [address] OF [facility] CNOVon 07-28-2024 CNOV Office Visit (QUIQUEPWS ) ROBY FLORES ([id number]) 1935 M Date Time Provider Department 07/28/24 [...] Coronary atherosclerosis of unspecified type of vessel, [place] or graft Coronary artery disease Other and [...] Past Histories independently gathered by the clinical home support worker and the remaining scribed note accurately describes [...] - Fully Assessed Reason for Visit: Lump [13358] Cmt: Elbow Primary Visit Diagnosis:Bursitis of right elbow, unspecified bursa [M70.31] Prescriptions as of 07/28/2024 - memantine (NAMENDA) 10 mg tablet Take 1 tablet by mouth two times a day. - atorvastatin (LIPITOR) 40 mg tablet Take 1 tablet by mouth daily at bedtime. - warfarin (COUMADIN) 2.5 mg tablet Take as directed (more content not included)... 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]09/22/2016 Paroxysmal atrial fibrillation (HCC) [I48.0] 09/22/2016 Hyperlipidemia [E78.5] 08/26/2022 Encounter Status:Closed by WENDY FAULKNER on 07/18/24 [facility] Gene 07-06-2024 CNPN Telephone (PHAMTE) SANDRAROBY Garcia ([id number]) 1935 M Date Time Provider Department 07/06/24 CORETTA JALLOH During your visit today, we recorded the following information about you: Coretta Jalloh RPh 07/06/2024 10:16 AM Signed [facility]tico[facility] Anticoagulation Episode Summary Anticoagulation Care Providers Provider Role Specialty Phone number Stas Mora MD Referring Family Medicine [phone] Roby Radha Flores is a 88 year [...] ALLERGIES No Known Allergies Indication for Warfarin: alf 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 Coretta Jalloh [facility] Clinical Pharmacist, Pharmacy Anticoagulation Clinic Pharmacy Anticoagulation Clinic Pager: [phone]. 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]09/22/2016 Paroxysmal atrial fibrillation (HCC) [I48.0] 09/22/2016 Hyperlipidemia [E78.5] 08/26/2022 Encounter Status:Closed by CORETTA JALLOH on 07/06/24 Normal [facility] PT panel Coag (PPP)on 2024 INR Coag (PPP) [Relative time] 2.1 {INR} High 0.9-1.3 [facility] Comment on above: Order Comment: Speci men Type: BLOOD SPECIMENOrdering Facility: [facility] Address: [address] [place] [address] Result Comment: Mary min K Antagonist (VKA) Therapeutic Range: INR 2 to 3 (Target INR of 2.5) Note: For patients treated with VKA drugs, such as warfarin, the [employer] 2012 Guideline recommends [...] Chest 2012, 141:7S-47S Avel RA, et al. [facility] 2017, 70: 252-289 Performed By: #### 3 4528-0 ####[facility] CLINENCLIZZ [id number] [place] [address] [place] PT Coag (PPP) [Time] 21.0 s High <13.1 [facility] Comment on above: Order Comment: Speci men Type: BLOOD SPECIMENOrdering Facility: [facility] Address: [address] [place] [address] Performed By: #### 3 4528-0 ####[facility] CLINENCLIA [id number] [address] [place] CNPNon 06-29-2024 CNPN Telephone (PHAMTE) ROBY FLORES ([id number]) 1935 M Date Time Provider Department 06/29/24 CORETTA JALLOH During your visit today, we recorded the following information about you: Coretta Jalloh RPh 06/29/2024 9:54 AM Signed [facility] Anticoagulation Clinic Anticoagulation Episode Summary Anticoagulation Care Providers Provider Role Specialty Phone number Stas Mora MD Referring Family Medicine [phone] Roby Martinezenter is a 88 year old [...] ALLERGIES No Known Allergies Indication for Warfarin: alf current use of anticoagulant Paroxysmal atrial fibrillation (hcc) Anticoagulation Episode Summary Current INR goal: 2.0-3.0 Assessment: INR result of 2.5 is therapeutic Plan: Current Warfarin Dosing As of 06/29/2024 Full warfarin instructions: 1.5 mg every Thu, Sat; 2.5 mg all other days Sent [employer] message Advised patient to continue current weekly [...] doses of warfarin. Coretta Jalloh [facility] Clinical Pharmacist, Pharmacy Anticoagulation Clinic Pharmacy Anticoagulation Clinic Pager: [phone]. 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/24/2011 alf current use of anticoagulant [Z79.01]09/22/2016 Paroxysmal atrial fibrillation (HCC) [I48.0] 09/22/2016 Hyperlipidemia [E78.5] 08/26/2022 Encounter Status:Closed by CORETTA JALLOH on 06/29/24 Normal [facility] PT panel Coag (PPP)on 2024 INR Coag (PPP) [Relative time] 2.5 {INR} High 0.9-1.3 [facility] Comment on above: Order Comment: Speci men Type: BLOOD SPECIMEN Ordering Facility: [facility] Address: [address] [place] [address] Result Comment: Mary min K Antagonist (VKA) Therapeutic Range: INR 2 to 3 (Target INR of 2.5) Note: For patients treated with VKA drugs, such as warfarin, the [employer] 2012 Guideline recommends [...] Chest 2012, 141:7S-47S Avel RA, et al. [facility] 2017, 70: 252-289 Performed By: #### 3 4528-0 #### [facility] [id number] [address] [place] [address] [place] PT Coag (PPP) [Time] 24.4 s High <13.1 [facility] Comment on above: Order Comment: Speci men Type: BLOOD SPECIMEN Ordering Facility: [facility] Address: [address] [place] [address] Performed By: #### 3 4528-0 #### [facility] [id number] [address] [place] [address] [place] CNOVon 06-01-2024 CNOV Office Visit (PATIWR ) ROBY FLORES ([id number]) 1935 M Date Time Provider Department 06/01/24 3:00 PM LUCIANA CISNEROS During your visit today, we recorded the following information about you: Pulse Blood pressure Weight Height 46/minute 132/60 73.8 kg 1.819 m Luciana Cisneros MD 07/14/2024 4:10 PM Addendum [facility] Initial Consult Roby [...] not know 911 Social History: Primary language: Nicaraguan Marital Status: Single Living situation: Home w/ SO Socially engaged? (participates in activities such as clubs, druze, community center, sports, games, visiting friends/relatives, etc?): They go out to eat sometimes, not as often, most of the time they order stuff and pick it up at home. Caregiver Kinards and Stress Are your feeling overwhelmed? 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 Normal [facility] CNOVon 05-26-2024 CNOV Office Visit (FAMPWS ) ROBY FLORES ([id number]) 1935 M Date Time Provider Department 05/26/24 9:20 AM [facility] During your visit today, we recorded [...] Coronary atherosclerosis of unspecified type of vessel, [place] or graft Coronary artery disease Other and [...] due on (more content not included)... Normal [facility] Gene 05-26-[address] 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OSPITALJERMAIN [id number] [place] [address] [place] Basophils/100 WBC (Bld) 0.6 % Normal [facility] Comment on above: Order Comment: Speci men Type: BLOOD SPECIMENOrdering Facility: [facility] Address: [address] [place] [address] Performed By: #### 5 7021-8 ####[facility] DENISEWAMINATALIA [id number] [place] [address] [place] Differential cell count method Nom (Bld) Auto Normal [facility] Comment on above: Order Comment: Speci men Type: BLOOD SPECIMENOrdering Facility: [facility] Address: [address] [place] [address] Performed By: #### 5 7021-8 ####[facility] SYSTEMSAMINATALIA [id number] [place] [address] [place] Eosinophils (Bld) [#/Vol] 0.08 10*3/uL Normal <0.46 [facility] Comment on above: Order Comment: Speci men Type: BLOOD SPECIMENOrdering Facility: [facility] Address: [address] [place] [address] Performed By: #### 5 7021-8 ####[facility] SYSTEMSAMINATALIA [id number] [place] [address] [place] Eosinophils/100 WBC (Bld) 1.0 % Normal [facility] Comment on above: Order Comment: Speci men Type: BLOOD SPECIMENOrdering Facility: [facility] Address: [address] [place] [address] Performed By: #### 5 7021-8 ####[facility] SYSTEMSWNCLIA [id number] [place] [address] [place] Erythrocyte distribution width (RBC) [Ratio] 16.7 % High 11.5-15.0 [facility] Comment on above: Order Comment: Speci men Type: BLOOD SPECIMENOrdering Facility: [facility] Address: [address] [place] [address] Performed By: #### 5 7021-8 ####[facility] SYSTEMSAMINATALIA [id number] [place] [address] [place] Hematocrit (Bld) [Volume fraction] 38.7 % Low 39.0-51.0 [facility] Comment on above: Order Comment: Speci men Type: BLOOD SPECIMENOrdering Facility: [facility] Address: [address] [place] [address] Performed By: #### 5 7021-8 ####[facility] [id number] [place] [address] [place] Hemoglobin (Bld) [Mass/Vol] 11.8 g/dL Low 13.0-17.0 [facility] Comment on above: Order Comment: Speci men Type: BLOOD SPECIMENOrdering Facility: [facility] Address: [address] [place] [address] Performed By: #### 5 7021-8 ####[facility] [id number] [place] [address] [place] Immature granulocytes (Bld) [#/Vol] 10*3/uL Normal <0.10 [facility] Comment on above: Order Comment: Speci men Type: BLOOD SPECIMENOrdering Facility: [facility] Address: [address] [place] [address] Performed By: #### 5 7021-8 ####[facility] [id number] [place] [address] [place] Immature granulocytes/100 WBC (Bld) 0.2 % Normal [facility] Comment on above: Order Comment: Speci men Type: BLOOD SPECIMENOrdering Facility: [facility] Address: [address] [place] [address] Performed By: #### 5 7021-8 ####[facility] [id number] [place] [address] [place] Lymphocytes (Bld) [#/Vol] 1.50 10*3/uL Normal 1.00-4.00 [facility] Comment on above: Order Comment: Speci men Type: BLOOD SPECIMENOrdering Facility: [facility] Address: [address] [place] [address] Performed By: #### 5 7021-8 ####[facility] SYSTEMSNCBRIGH[facility] [id number] [place] [address] [place] Lymphocytes/100 WBC (Bld) 18.7 % Normal [facility] Comment on above: Order Comment: Speci men Type: BLOOD SPECIMENOrdering Facility: [facility] Address: [address] [place] [address] Performed By: #### 5 7021-8 ####[facility] SYSTEMSNCBRIGH[facility] [id number] [place] [address] [place] MCH (RBC) [Entitic mass] 23.6 pg Low 26.0-34.0 [facility] Comment on above: Order Comment: Speci men Type: BLOOD SPECIMENOrdering Facility: [facility] Address: [address] [place] [address] Performed By: #### 5 7021-8 ####[facility] SYSTEMSNCLI [id number] [place] [address] [place] MCHC (RBC) [Mass/Vol] 30.5 g/dL Normal 30.5-36.0 [facility] Comment on above: Order Comment: Speci men Type: BLOOD SPECIMENOrdering Facility: [facility] Address: [address] [place] [address] Performed By: #### 5 7021-8 ####[facility] SYSTEMSNCLI [id number] [place] [address] [place] MCV (RBC) [Entitic vol] 77.6 fL Low 80.0-100.0 [facility] Comment on above: Order Comment: Speci men Type: BLOOD SPECIMENOrdering Facility: [facility] Address: [address] [place] [address] Performed By: #### 5 7021-8 ####[facility] MILLGABRIELWNCLIA [id number] [place] [address] [place] Monocytes (Bld) [#/Vol] 0.64 10*3/uL Normal <0.87 [facility] Comment on above: Order Comment: Speci men Type: BLOOD SPECIMENOrdering Facility: [facility] Address: [address] [place] [address] Performed By: #### 5 7021-8 ####[facility] MILLWNCLIA [id number] [place] [address] [place] Monocytes/100 WBC (Bld) 8.0 % Normal [facility] Comment on above: Order Comment: Speci men Type: BLOOD SPECIMENOrdering Facility: [facility] Address: [address] [place] [address] Performed By: #### 5 7021-8 ####[facility] SYSTEMSWNCLIA [id number] [place] [address] [place] Neutrophils (Bld) [#/Vol] 5.75 10*3/uL Normal 1.45-7.50 [facility] Comment on above: Order Comment: Speci men Type: BLOOD SPECIMENOrdering Facility: [facility] Address: [address] [place] [address] Performed By: #### 5 7021-8 ####[facility] MILLTOWNCLIA [id number] [place] [address] [place] Neutrophils/100 WBC (Bld) 71.5 % Normal [facility] Comment on above: Order Comment: Speci men Type: BLOOD SPECIMENOrdering Facility: [facility] Address: [address] [place] [address] Performed By: #### 5 7021-8 ####[facility] MILLTOWNCLIA [id number] [place] [address] [place] Nucleated RBC (Bld) [#/Vol] 10*3/uL Normal <0.01 [facility] Comment on above: Order Comment: Speci men Type: BLOOD SPECIMENOrdering Facility: [facility] Address: [address] [place] [address] Performed By: #### 5 7021-8 ####[facility] [id number] [place] [address] [place] Nucleated RBC/100 WBC (Bld) [Ratio] 0.0 /100 WBC Normal [facility] Comment on above: Order Comment: Speci men Type: BLOOD SPECIMENOrdering Facility: [facility] Address: [address] [place] [address] Performed By: #### 5 7021-8 ####[facility] [id number] [place] [address] [place] Platelet mean volume (Bld) [Entitic vol] 10.6 fL Normal 9.0-12.7 [facility] Comment on above: Order Comment: Speci men Type: BLOOD SPECIMENOrdering Facility: [facility] Address: [address] [place] [address] Performed By: #### 5 7021-8 ####[facility] HOSPITALCHESTERA [id number] [place] [address] [place] Platelets (Bld) [#/Vol] 257 10*3/uL Normal 150-400 [facility] Comment on above: Order Comment: Speci men Type: BLOOD SPECIMENOrdering Facility: [facility] Address: [address] [place] [address] Performed By: #### 5 7021-8 ####[facility] SYSTEMSNCLIA [id number] [place] [address] [place] RBC (Bld) [#/Vol] 4.99 10*6/uL Normal 4.20-6.00 [facility] Comment on above: Order Comment: Speci men Type: BLOOD SPECIMENOrdering Facility: [facility] Address: [address] [place] [address] Performed By: #### 5 7021-8 ####[facility] SYSTEMSWNCLIA [id number] [place] [address] [place] [facility] [place] WBC (Bld) [#/Vol] 8.04 10*3/uL Normal 3.70-11.00 [facility] Comment on above: Order Comment: Speci men Type: BLOOD SPECIMENOrdering Facility: [facility] Address: [address] [place] [address] Performed By: #### 5 7021-8 ####[facility] SYSTEMSNCLIA [id number] [address] [facility] CNPMarizol 05-25-[address] [facility] Telephone (PHAMTE) ROBY FLORES ([id number]) 1935 M Date Time Provider Department 05/25/24 PAIGE HICKMAN During your visit today, we recorded the following information about you: Paige Hickman [facility] 05/25/2024 1:51 PM Signed [facility] Anticoagulation Clinic Anticoagulation Episode Summary Anticoagulation Care Providers Provider Role Specialty Phone number Stas Mora MD Referring Family Medicine [phone] Roby Martinezenter is a 88 year old [...] Sat; 2.5 mg all other days Sent [employer] message Advised patient to continue current weekly dose as noted above Next INR check due on 06/29/2024 Paige Hickman [facility] Clinical Pharmacist, Pharmacy Anticoagulation Clinic Pharmacy Anticoagulation Clinic Pager: [phone]. 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/24/2011 alf current use of anticoagulant [Z79.01]09/22/2016 Paroxysmal atrial fibrillation (HCC) [I48.0] 09/22/2016 Hyperlipidemia [E78.5] 08/26/2022 Encounter Status:Closed by PAIGE HICKMAN on 05/25/24 Normal [facility] Comprehensive metabolic 2000 panelon 05-25-2024 Albumin [Mass/Vol] 4.2 g/dL Normal 3.9-4.9 [facility] Comment on above: Order Comment: Speci men Type: BLOOD SPECIMEN [facility]: [facility] Address: [address] [place] [address] Performed By: #### 3 4528-0 #### [facility] CLIA [id number] [address] [place] [address] [place] ALP [Catalytic activity/Vol] 138 U/L High 38-113 [facility] Comment on above: Order Comment: Speci men Type: BLOOD SPECIMEN Ordering Facility: [facility] Address: [address] [place] [address] Performed By: #### 3 4528-0 #### [facility] [place] CLIA [id number] [address] [place] [address] [place] ALT [Catalytic activity/Vol] 17 U/L Normal 10-54 [facility] Comment on above: Order Comment: Speci men Type: BLOOD SPECIMEN Ordering Facility: [facility] Address: [address] [place] [address] Performed By: #### 3 4528-0 #### [facility] [place] CLIA [id number] [address] [place] [address] [place] Anion gap [Moles/Vol] 11 mmol/L Normal 8-15 [facility] Comment on above: Order Comment: Speci men Type: BLOOD SPECIMEN Ordering Facility: [facility] Address: [address] [place] [address] Performed By: #### 3 4528-0 #### [facility] CLIA [id number] [address] [place] [address] [place] AST [Catalytic activity/Vol] 22 U/L Normal 14-40 [facility] Comment on above: Order Comment: Speci men Type: BLOOD SPECIMEN [facility]ing [facility]: [facility] Address: [address] [place] [address] Performed By: #### 3 4528-0 #### [facility] CLIA [id number] [address] [place] [address] [place] Bilirubin [Mass/Vol] 0.8 mg/dL Normal 0.2-1.3 [facility] Comment on above: Order Comment: Speci men Type: BLOOD SPECIMEN Ordering Facility: [facility] Address: [address] [place] [address] Performed By: #### 3 4528-0 #### [facility] [place] CLIA [id number] [address] [place] [address] [place] Calcium [Mass/Vol] 8.8 mg/dL Normal 8.5-10.2 [facility] Comment on above: Order Comment: Speci men Type: BLOOD SPECIMEN Ordering Facility: [facility] Address: [address] [place] [address] Performed By: #### 3 4528-0 #### [facility] CLIA [id number] [address] [place] [address] [place] Chloride [Moles/Vol] 102 mmol/L Normal 98-107 [facility] Comment on above: Order Comment: Speci men Type: BLOOD SPECIMEN Ordering Facility: [facility] Address: [address] [place] [address] Performed By: #### 3 4528-0 #### [facility] CLIA [id number] [address] [place] [address] [place] CO2 [Moles/Vol] 24 mmol/L Normal 22-30 [facility] Comment on above: Order Comment: Speci men Type: BLOOD SPECIMEN Ordering Facility: [facility] Address: [address] [place] [address] Performed By: #### 3 4528-0 #### [facility] CLIA [id number] [address] [place] [address] [place] Creatinine [Mass/Vol] 0.73 mg/dL Normal 0.73-1.22 [facility] Comment on above: Order Comment: Speci men Type: BLOOD SPECIMEN Ordering Facility: [facility] Address: [address] [place] [address] Performed By: #### 3 4528-0 #### [facility] CLIA [id number] [address] [place] [address] [place] Creatinine and Glomerular filtration rate.predicted panel (S/P/Bld) 88 mL/min/1.73m??? Normal >=60 [facility] Comment on above: Order Comment: Speci men Type: BLOOD SPECIMEN Ordering Facility: [facility] Address: [address] [place] [address] Result Comment: Ruby mated Glomerular Filtration Rate [...] GFR. Performed By: #### 3 4528-0 #### [facility] [id number] [address] [place] [address] [place] Glucose [Mass/Vol] 98 mg/dL Normal 74-99 [facility] Comment on above: Order Comment: Stone parmar Type: BLOOD SPECIMEN Ordering Facility: [facility] Address: [address] [place] [address] Result Comment: The [place] [employer] (ADA) provides guidance for cutoff [...] Standards of Medical Care in Diabetes 2016, [place] [employer]. Diabetes Care. 2016.39(Suppl 1). Performed By: #### 3 4528-0 #### [facility] [id number] [address] [place] [address] [place] Potassium [Moles/Vol] 4.1 mmol/L Normal 3.7-5.1 [facility] Comment on above: Order Comment: Stone parmar Type: BLOOD SPECIMEN Ordering Facility: [facility] Address: [address] [place] [address] Performed By: #### 3 4528-0 #### [facility] [id number] [address] [place] [address] [place] Protein [Mass/Vol] 6.8 g/dL Normal 6.3-8.0 [facility] Comment on above: Order Comment: Speci men Type: BLOOD SPECIMEN Ordering Facility: [facility] Address: [address] [place] [address] Performed By: #### 3 4528-0 #### [facility] CLIA [id number] [address] [place] [address] [place] Sodium [Moles/Vol] 137 mmol/L Normal 136-144 [facility] Comment on above: Order Comment: Speci men Type: BLOOD SPECIMEN Ordering Facility: [facility] Address: [address] [place] [address] Performed By: #### 3 4528-0 #### [facility] CLIA [id number] [address] [place] [address] [place] Urea nitrogen [Mass/Vol] 14 mg/dL Normal 9-24 [facility] Comment on above: Order Comment: Speci men Type: BLOOD SPECIMEN Ordering Facility: [facility] Address: [address] [place] [address] Performed By: #### 3 4528-0 #### [facility] CLIA [id number] [address] [place] [address] [place] Lipid 1996 panelon 5 Cholesterol [Mass/Vol] 107 mg/dL Normal <200 [facility] Comment on above: Order Comment: Speci men Type: BLOOD SPECIMEN Ordering Facility: [facility] Address: [address] [place] [address] Result Comment: <200 mg/dL, Desirable 200-239 mg/dL, Borderline high >239 mg/dL, High Performed By: #### 3 4528-0 #### [facility] CLIA [id number] [address] [place] [address] [place] Cholesterol in HDL [Mass/Vol] 43 mg/dL Normal >39 [facility] Comment on above: Order Comment: Stone ghulam Type: BLOOD SPECIMEN Ordering Facility: [facility] Address: [address] [place] [address] Result Comment: 40-5 9 mg/dL, Acceptable >59 mg/dL, High: Negative risk factor for coronary heart disease <40 mg/dL, Low: Positive risk factor for coronary heart disease Performed By: #### 3 4528-0 #### [facility] CLIA [id number] [address] [place] [address] STATES OF [facility] Cholesterol in LDL [Mass/Vol] 51 mg/dL Normal <100 [facility] Comment on above: Order Comment: Stone ghulam Type: BLOOD SPECIMEN Ordering Facility: [facility] Address: [address] [place] [address] Result Comment: <100 mg/dL, Optimal 100-129 mg/dL, Near optimal/above optimal 130-159 mg/dL, Borderline high 160-189 mg/dL, High >189 mg/dL, Very high Secondary prevention optimal LDL Cholesterol levels are recommended to be < 70 mg/dL Performed By: #### 3 4528-0 #### [facility] CLIA [id number] [address] [place] [address] OF [facility] Cholesterol in LDL/Cholesterol in HDL [Mass ratio] 1.19 {ratio} Normal <2.54 [facility] Comment on above: Order Comment: Stone ghulam Type: BLOOD SPECIMEN Ordering Facility: [facility] Address: [address] [place] [address] Result Comment: Refe rence: 1. National Cholesterol Education Program ATP III Guideline At-A-Glance Quick Desk Reference: National Heart, Lung, and Blood [place]. National Institutes of Health. 2001: NIH Publication No. 01-3305. 2. An International Atherosclerosis Society position paper: global recommendations for the management of dyslipidemia: executive summary, Atherosclerosis. 2014: 232(2):410-413. Performed By: #### 3 4528-0 #### [facility] CLIA [id number] [address] [place] [address] [place] Cholesterol in VLDL [Mass/Vol] 13 mg/dL Normal <30 [facility] Comment on above: Order Comment: Speci men Type: BLOOD SPECIMEN Ordering Facility: [facility] Address: [address] [place] [address] Performed By: #### 3 4528-0 #### [facility] CLIA [id number] [address] [place] [address] [place] Cholesterol non HDL [Mass/Vol] 64 mg/dL Normal <130 [facility] Comment on above: Order Comment: Speci men Type: BLOOD SPECIMEN Ordering Facility: [facility] Address: [address] [place] [address] Result Comment: <130 mg/dL, Optimal 130-159 mg/dL, Near optimal/above optimal 160-189 mg/dL, Borderline high 190-219 mg/dL, High >219 mg/dL, Very high Secondary prevention optimal non HDL Cholesterol levels are recommended to be <100 mg/dL Performed By: #### 3 4528-0 #### [facility] [id number] [address] [place] [address] [place] Cholesterol.total/Cho lesterol in HDL [Mass ratio] 2.49 {ratio} Normal <5.10 [facility] Comment on above: Order Comment: Speci men Type: BLOOD SPECIMEN Ordering Facility: [facility] Address: [address] [place] [address] Performed By: #### 3 4528-0 #### [facility] CLIA [id number] [address] [place] [address] [place] FASTING TIME 12 hrs Normal [facility] Comment on above: Order Comment: Speci men Type: BLOOD SPECIMEN Ordering Facility: [facility] Address: [address] [place] [address] Performed By: #### 3 4528-0 #### [facility] [id number] [address] [place] [address] [place] Triglyceride [Mass/Vol] 66 mg/dL Normal <150 [facility] Comment on above: Order Comment: Stone parmar Type: BLOOD SPECIMEN Ordering Facility: [facility] Address: [address] [place] [address] Result Comment: <150 mg/dL, Normal 150-199 mg/dL, Borderline high 200-499 mg/dL, High >499 mg/dL, Very high Performed By: #### 3 4528-0 #### [facility] CLIA [id number] [address] [place] [address] [place] PT panel Coag (PPP)on 2024 INR Coag (PPP) [Relative time] 2.9 {INR} High 0.9-1.3 [facility] Comment on above: Order Comment: Stone parmar Type: BLOOD SPECIMEN Ordering Facility: [facility] Address: [address] [place] [address] Result Comment: Mary min K Antagonist (VKA) Therapeutic Range: INR 2 to 3 (Target INR of 2.5) Note: For patients treated with VKA drugs, such as warfarin, the [employer] 2012 Guideline recommends [...] Chest 2012, 141:7S-47S Avel RA et al. [facility] 2017, 70: 252-289 Performed By: #### 3 4528-0 #### [facility] CLIA [id number] [address] [place] [address] [place] PT Coag (PPP) [Time] 28.7 s High <13.1 [facility] Comment on above: Order Comment: Speci men Type: BLOOD SPECIMEN Ordering Facility: [facility] Address: [facility] [place] [id number] Performed By: #### 3 4528-0 #### [facility] CLIA [id number] [address] [place] [address] [place] MR Brain WO contraston 05-23 * * *Final Report* * * DATE OF EXAM: May 23 2024 3:14PM [facility] 3015 - MRI BRAIN W QUANT WO [...] dementia protocol and 3-D post-processing using the Fonality software at an independent workstation with concurrent [...] to 1.7; Violeta 2008; also Hieu 2010). [facility], [facility]24 * * *Final Report* * * DATE OF EXAM: May 23 2024 3:14PM [facility] 3015 - MRI BRAIN W QUANT WO [...] dementia protocol and 3-D post-processing using the Fonality software at an independent workstation with concurrent [...] = Focal Lesions 2 = Beginning of [place] 3 = Diffuse Involvement of Entire Region [...] (%). Age-matched r (more content not included)... [facility] MR Unspecified body region 3 D post processingon 05-23-2024 * * *Final Report* * * DATE OF EXAM: May 23 2024 3:14PM [facility] 7867 - MRI 3D BRAIN QUANT / [...] dementia protocol and 3-D post-processing using the Fonality software at an independent workstation with concurrent [...] to 1.7; Violeta 2008; also Hieu 2010). [facility] Provider, Richie Hernández - 05/23/2024 * * *Final Report* * * DATE OF EXAM: May 23 2024 3:14PM [facility] 7867 - MRI 3D BRAIN QUANT / [...] dementia protocol and 3-D post-processing using the Fonality software at an independent workstation with concurrent [...] = Focal Lesions 2 = Beginning of [place] 3 = Diffuse Involvement of Entire Region [...] (%). Age-matched reference (more content not included)... [facility] MRI 3D BRAIN QUANTon 025 MRI 3D BRAIN QUANT * * *Final Report* * * DATE OF EXAM: May 23 2024 3:14PM [facility] 7867 - MRI 3D BRAIN QUANT / [...] dementia protocol and 3-D post-processing using the Fonality software at an independent workstation with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 0.70-1.30 [facility] Comment on above: The validity of the calculated GFR & GFRAA in patients over 70 years has not been determined. Clinical correlation is essential. Serum or plasma urea nitroge n measurement (mass/volume)Ordered By: Brian Cunningham on 02-10-2023 Urea nitrogen [Mass/Vol] 19 mg/dL 7-18 [facility] Squamous epithelial cells de tection in urine sediment by light microscopyOrdered By: Brian Cunningham on 02-10-2023 Epithelial cells.squamous LM Ql (Urine sed) 0 SEEN /hpf 0-5 [facility] Thin prep Papanicolaou smear with manual screeningOrdered By: Brian Cunningham on 02-10-2023 Thin prep Papanicolaou smear with manual screening 2 5-15 [facility] Urine blood detectionOrdered By: Brian Cunningham on 02-10-2023 RBC Ql (U) Negative Negative [facility] RBC Ql (U) 0 SEEN /hpf 0-5 [facility] Urine clarityOrdered By: Caitlyn Cunningham on 02-10-2023 Clarity (U) Clear Clear [facility] Urine color determinationOrd ered By: Brian Cunningham on 02-10-2023 Color (U) Yellow Yellow [facility] Urine glucose detectionOrder ed By: Brian Cunningham on 02-10-2023 Glucose Ql (U) Normal mg/dl Normal [facility] Urine leukocyte esterase det ection by dipstickOrdered By: Brian Cunningham on 02-10-2023 Leukocyte esterase Test strip Ql (U) 25 /ul Negative [facility] Urine pHOrdered By: Brian swain on 02-10-2023 pH (U) 6.5 [pH] 5.0 - 8.0 [facility] Urine sediment bacteria coun t by microscopy (number/high power field)Ordered By: Brian Cunningham on 02-10-2023 Bacteria LM.HPF (Urine sed) [#/Area] 0 /[HPF] None Seen [facility] Urine specific gravity measu rementOrdered By: Brian Cunningham on 02-10-2023 Specific gravity (U) [Rel density] 1.015 1.002-1.03 0 [facility] Urobilinogen Auto test strip Ql (U)Ordered By: Brian Cunningham on 02-10-2023 Urobilinogen Ql (U) 4 mg/dl Normal [facility] CT HEAD OR BRAIN W/O CONTRAS [...] 11/17/2022 4:26:20 PM Ordering Provider: STERLING LYNCH [facility] ([place]) XR Pelvis and Hip - left AP and Lateral frogon 05-21-2022 IMPRESSION: No acute fracture or hip dislocation Dip Filler: [facility] Transcribe Date/Time: May 21 2022 3:41P Dictated by : JUDY MCKENZIE MD This examination was interpreted and the report reviewed and electronically signed by: JUDY MCKENZIE MD on May 21 2022 3:43PM [facility] DIVISION OF RADIOLOGY * * [...] Small acetabular osteophytes. DIVISION OF RADIOLOGY Provider, [facility] - 05/21/2022 * * *Final Report* [...] IMPRESSION: No acute fracture or hip dislocation Dip Filler: EDUAR Transcribe Date/Time: May 21 2022 3:41P Dictated by : JUDY MCKENZIE MD This examination was interpreted and the report reviewed and electronically signed by: JUDY MCKENZIE MD on May 21 2022 3:43PM [facility] Radiology Study observation (narrative) [facility] XR Pelvis and Hip - left AP and Lateral frogOrdered By: Ccf Provider on 05-21-2022 [facility] PT panel Coag (PPP)on 2022 INR Coag (Bld) [Relative time] 1.7 {INR} [facility] Basophil percentageon 2021 Cholesterol [Mass/Vol] 152 mg/dL <200 [facility] Work Phone: Comment on above: <200 mg/dL Desirable 200-240 mg/dL Borderline >240 mg/dL High Risk Triglyceride [Mass/Vol] 76 mg/dL <199 [facility] Work Phone: Comment on above: The drugs N-Acetylcy steine and Metamizole may falsely depress this assay.Serum Triglycerides Reference Interval Normal <150 mg/dL Borderline high 150 - 199 mg/dL High 200 - 499 mg/dL Very High > or = 500 mg/dL INR in Blood by Coagulation assayon 12-22-2021 INR Coag (Bld) [Relative time] 2.5 {INR} [facility] Work Phone: Laboratory - Chemistry and C hemistry - challengeon 12-22-2021 Magnesium [Mass/Vol] 2.1 mg/dL 1.6-2.6 [facility] Work Phone: Laboratory - Coagulationon 1 PT Coag (PPP) [Time] 27.0 s 11.7-14.9 [facility] Work Phone: No Panel Informationon 12-22 Thyroid Stimulating Hormone (TSH) 0.42 uIU/mL 0.358-3.74 [facility] Work Phone: Serum or plasma cholesterol in HDL measurement (mass/volume)on 12-22-2021 Cholesterol in HDL [Mass/Vol] 35 mg/dL >40 [facility] Work Phone: Comment on above: The drugs N-Acetylcy steine and Metamizole may falsely depress this assay. Reference Range HDL <40 mg/dL Low HDL Cholesterol HDL >or= 60 mg/dL High HDL Cholesterol Serum or plasma cholesterol in VLDL measurement (mass/volume)on 12-22-2021 Cholesterol in VLDL [Mass/Vol] 15 mg/dL 5-40 [facility] Work Phone: Serum or plasma low density lipoprotein (LDL) cholesterol measurement (mass/volume)on 12-22-2021 Cholesterol in LDL [Mass/Vol] 102 mg/dL 0-130 [facility] Work Phone: Whole blood hemoglobin A1c/t otal hemoglobin ratio (mass fraction)on 12-22-2021 HbA1c (Bld) [Mass fraction] 5.9 % 3.8-5.6 [facility] Work Phone: Comment on above: Normal < 5.7 % Predi abetic 5.7 - 6.4 % Diabetic >or= 6.5 % Please note range changes. Absolute lymphocyte counton 12-21-2021 Lymphocytes Auto (Unsp spec) [#/Vol] 1.23 10*3/uL 0.83-4.51 [facility] Work Phone: Basophil percentageon 2021 Basophils/100 WBC (Bld) 0.4 % 0-1 [facility] Work Phone: Chloride [Moles/Vol] 106 mmol/L 98-107 [facility] Work Phone: Eosinophils/100 WBC (Bld) 1.4 % 0-5 [facility] Work Phone: Glucose [Mass/Vol] 107 mg/dL 74-106 [facility] Work Phone: Comment on above: Fasting Glucose resu lt from 100 to 125 mg/dL suggests IMPAIRED HOMEOSTASIS per A.D.A. criteria. Neutrophils (Bld) [#/Vol] 5.7 10*3/uL 2.0-7.7 [facility] Work Phone: Neutrophils/100 WBC (Bld) 72.4 % 47-70 [facility] Work Phone: Potassium [Moles/Vol] 3.7 mmol/L 3.5-5.1 [facility] Work Phone: Sodium [Moles/Vol] 141 mmol/L 136-145 [facility] Work Phone: WBC (Bld) [#/Vol] 7.9 10*3/uL 4.4-11.0 [facility] Work Phone: [phone] Blood erythrocytes count (nu mber/volume)on 12-21-2021 RBC (Bld) [#/Vol] 4.85 10*6/uL 4.6-6.2 [facility] Work Phone: Blood hemoglobin measurement (mass/volume)on 12-21-2021 Hemoglobin (Bld) [Mass/Vol] 14.5 g/dL 13.0-16.5 [facility] Work Phone: [phone] Blood lymphocytes/100 leukoc yteson 12-21-2021 Lymphocytes/100 WBC (Bld) 15.5 % 19-41 [facility] Work Phone: Blood monocytes/100 leukocyt eson 12-21-2021 Monocytes/100 WBC (Bld) 9.9 % 0-10 [facility] Work Phone: Blood platelet mean volumeon 12-21-2021 Platelet mean volume (Bld) [Entitic vol] 10.2 fL 6.2-12.0 [facility] Work Phone: Determination of erythrocyte mean corpuscular volume (MCV)on 12-21-2021 MCV (RBC) [Entitic vol] 92.0 fL 80-94 [facility] Work Phone: Hematocrit Auto (Bld) [Volum e fraction]on 12-21-2021 Hematocrit (Bld) [Volume fraction] 44.6 % 40-54 [facility] Work Phone: INR in Blood by Coagulation assayon 12-21-2021 INR Coag (Bld) [Relative time] 2.3 {INR} [facility] Work Phone: Laboratory - Chemistry and C hemistry - challengeon 12-21-2021 CO2 [Moles/Vol] 29.0 mmol/L 21.0-32.0 [facility] Work Phone: Urea nitrogen/Creatinine [Mass ratio] 21.8 mg/mg 10-20 [facility] Work Phone: Laboratory - Coagulationon 1 aPTT Coag (Bld) [Time] 36.6 s 24.1-36.2 [facility] Work Phone: PT Coag (PPP) [Time] 24.7 s 11.7-14.9 [facility] Work Phone: Laboratory - Hematology and Cell countson 12-21-2021 Erythrocyte distribution width (RBC) [Entitic vol] 42.2 fL 35.1-43.9 [facility] Work Phone: Erythrocyte distribution width (RBC) [Ratio] 12.5 % 11.6-14.6 [facility] Work Phone: Immature granulocytes/100 WBC (Bld) 0.400 % 0.0-0.9 [facility] Work Phone: Comment on above: IG% - Immature Granu locytes (promyelocytes, myelocytes and metamyelocytes) > 1% indicates that a LEFT SHIFT is Present. MCH (RBC) [Entitic mass] 29.9 pg 27.0-32.0 [facility] Work Phone: Nucleated RBC/100 WBC (Bld) [Ratio] 0 % 0-5 [facility] Work Phone: MCHC Auto (RBC) [Mass/Vol]on 12-21-2021 MCHC (RBC) [Mass/Vol] 32.5 g/dL 32-36 [facility] Work Phone: No Panel Informationon 12-21 Estimated Creatinine Clearance Calc 66.90 ml/min [facility] Work Phone: Estimated GFR (MDRD) Amer 107 mL/min >60 [facility] Work Phone: Comment on above: GFR Calc Estimated GFR (MDRD) Non-Af Amer 88 mL/min >60 [facility] Work Phone: Comment on above: Non- GFR Calc Troponin I High Sensitivity 13 pg/mL 3.0-78.0 [facility] Work Phone: Comment on above: Please Note: [place] Units and Gender Specific Reference Ranges. For more information see Policy Stat Procedure [place] High Sensitivity Troponin (TNIH) and attachments. Platelets bldon 12-21-2021 Platelets (Bld) [#/Vol] 241 10*3/uL 150-450 [facility] Work Phone: Serum or plasma calcium alvaro urement (mass/volume)on 12-21-2021 Calcium [Mass/Vol] 9.2 mg/dL 8.5-10.1 [facility] Work Phone: Serum or plasma creatinine m easurement (mass/volume)on 12-21-2021 Creatinine [Mass/Vol] 0.87 mg/dL 0.70-1.30 [facility] Work Phone: Comment on above: The validity of the calculated GFR & GFRAA in patients over 70 years has not been determined. Clinical correlation is essential. Serum or plasma urea nitroge n measurement (mass/volume)on 12-21-2021 Urea nitrogen [Mass/Vol] 19 mg/dL 10-07 [facility] Work Phone: Thin prep Papanicolaou smear with manual screeningon 12-21-2021 Thin prep Papanicolaou smear with manual screening 6 08-04 [facility] Work Phone: CBC panel Auto (Bld)on 07-08 Erythrocyte distribution width (RBC) [Ratio] 13.1 % 11.5 - 15.0 % [facility] Hematocrit (Bld) [Volume fraction] 49.5 % 39.0 - 51.0 % [facility] Hemoglobin (Bld) [Mass/Vol] 15.9 g/dL 13.0 - 17.0 g/dL [facility] MCH (RBC) [Entitic mass] 29.6 pg 26.0 - 34.0 pg [facility] MCHC (RBC) [Mass/Vol] 32.1 g/dL 30.5 - 36.0 g/dL [facility] MCV (RBC) [Entitic vol] 92.2 fL 80.0 - 100.0 fL [facility] Nucleated RBC (Bld) [#/Vol] 10*3/uL <0.01 k/uL [facility] Platelet mean volume (Bld) [Entitic vol] 10.7 fL 9.0 - 12.7 fL [facility] Platelets (Bld) [#/Vol] 235 10*3/uL 150 - 400 k/uL [facility] RBC (Bld) [#/Vol] 5.37 10*6/uL 4.20 - 6.00 m/uL [facility] WBC (Bld) [#/Vol] 10.33 10*3/uL 3.70 - 11.00 k/uL [facility] XR Lumbar spine 3 Viewson IMPRESSION: 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 Dip Filler: EDUAR Transcribe Date/Time: Mar 13 2020 8:34A [...] spine are presented. FINDINGS: There are five bnq-tos-wswumyh lumbar vertebrae. No fracture or subluxations are noted. L5-S1 disc space narrowing is demonstrated. There is significant osteophyte formation. Kissing spine seen on lateral view. DIVISION OF RADIOLOGY Provider, [facility] - 03/13/2020 * * *Final [...] spine are presented. FINDINGS: There are five owq-nvi-ojfsjav lumbar vertebrae. No fracture or subluxations are noted. L5-S1 disc space narrowing is demonstrated. There is significant osteophyte formation. Kissing spine seen on lateral view. 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 Dip Filler: PSCB Transcribe Date/Time: Mar 13 2020 8:34A Dictated by : GABRIELLE BENTLEY MD This examination was interpreted and the report reviewed and electronically signed by: GABRIELLE BENTLEY MD on Mar 13 2020 8:35AM EST [facility] XR Lumbar spine 3 ViewsOrder ed By: Ccf Provider on 03-13-2020 [facility] XR Lumbar spine 3 Viewson Radiology Study observation (narrative) [facility] PROGRESSon 06-09-2017 PROGRESS HNO ID: [id number] Author: Vesta Marin PSR Service: (none) Author Type: (none) Type: Progress Notes Filed: 06/09/2017 4:13 PM Note Text: Spoke with the patient and scheduled his Corotid Doppler on June 24, 2017 at 9:[address] [facility] CNOVon 06-02-2017 CNOV Office Visit (AGCARDWST) -------ROBY FLORES ([id number]) 1935 [facility] Time Provider Department06/02/17 9:00 AM DARRELL OLIVEIRA [...] - METBeta jazmin for ASHD with prior ND or prior LVEFANDlt;40 (NQF 0070) - N/ABeta [...] weeks.He will be getting labs from the [facility] in the near future and I've askedfor a copy.INR has been within range. He is due today.I will see him in 8 months or as needed. If there is increased chest pain orrecurrent syncope, he has been advised to contact me.Written and verbal health teaching given to patient, patient verbalizesunderstanding and agrees with treatment plan.This note was generated using [employer] voice recognition system, and there may besome [...] There is no significantchange.Electronic ally Signed:Darrell Oliveira, [facility] 2017 9:15 [facility]: Carmen Vasquez MD 06/02/2017 9:21 [...] 24, 2017 at9:00 amReferring Provider: DARRELL OLIVEIRA [[id number]]Allergies As of Date: 06/02/2017(No Known Allergies)Date Reviewed: 06/02/2017Reviewed by: Russell Breaux) Anabella - Fully AssessedReason for Visit: Recheck [92]Primary Visit Diagnosis:ASHD (arteriosclerotic heart disease) [I25.10] Other Visit Diagnosis:PAF (paroxysmal atrial fibrillation) ([facility]) [I48.0]Order(s):ECG B/O W INTERP (MED OFFICE) [ECG06] Order #: [id number] Fosinopril Sodium 40 mg tabletTake 1/2 tablet [...] FOR* 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 Please give serious thought to the following areas and commit to making assisted changes. EAT A WHOLE FOOD, PLANT BASED [...] on file. Cosign accepted by STAS MORA MD[[id number]] on 09/30/2016 2:01 PM Fosinopril Sodium 40 [...] on file.Follow-up and Disposition History RecordedEncounter Number: [id number] Status:Closed by DARRELL OLIVEIRA MD on 06/02/17 [facility] PROGRESSon 06-02-2017 PROGRESS HNO ID: [id number] thor: Darrell Stahl: (none)Author Type: PhysicianType: Progress NotesFiled: 06/02/2017 9:31 AMNote Text:PERTINENT CARDIAC HISTORYASHD - PCI LAD 2003HTNHLCarotid diseaseSyncopePAFADHERENCE TO GUIDELINESACE-I or ARB for HF with prior LVEF<40 (NQF 0081) - N/AASA or Plavix for ASHD (NQF 0067) - METBeta jazmin for ASHD with prior ND or prior LVEF<40 (NQF 0070) - N/ABeta [...] weeks.He will be getting labs from the [facility] in the near future and I'veasked for a copy.INR has been within range. He is due today.I will see him in 8 months or as needed. If there is increased chest painor recurrent syncope, he has been advised to contact me.Written and verbal health teaching given to patient, patient verbalizesunderstanding and agrees with treatment plan.This note was generated using [employer] voice recognition system, and theremay be some [...] ectopics. 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 Stas Mora MD Work Phone: 1(420)188-110557 [place] [address] 09-06-2024 14:15-0400 Body temperature 98 [degF] Dr. Stas Mora MD Work Phone: 1(049)052-664025 [place] [address] 09-06-2024 14:15-0400 Diastolic blood pressure 88 mm[Hg] Dr. Stas Mora MD Work Phone: 4(704)856-841057 [place] [address] 09-06-2024 14:15-0400 Heart rate 78 /min Dr. Stas Mora MD Work Phone: 8(211)919-773557 [place] [address] 09-06-2024 14:15-0400 Respiratory rate 18 /min Dr. Stas Mora MD Work Phone: 6(940)050-802757 [place] [address] 09-06-2024 14:15-0400 SaO2% (BldA) [Mass fraction] 97 % Dr. Stas Mora MD Work Phone: 0(572)573-043757 [place] [address] 09-06-2024 14:15-0400 Systolic blood pressure 137 mm[Hg] Dr. Stas Mora MD Work Phone: 7(259)384-443157 [place] [address] 09-04-2024 12:05-0400 Inhaled oxygen flow rate 2 L/min Dr. Stas Mora MD Work Phone: 0(144)637-275725 [place] [address] 09-01-2024 11:52-0400 Body height 182.[address] Stas Mora MD Work Phone: 4(292)116-067625 [place] [address] 09-01-2024 11:52-0400 Body mass index (BMI) [Ratio] 21.6 kg/m2 Dr. Stas Mora MD Work Phone: 7(833)732-937725 [place] [address] 09-01-2024 11:52-0400 Body weight 72.[address] Stas Mora MD Work Phone: 8(325)052-958025 [place] [address] 09-01-2024 11:00-0400 Diastolic blood pressure 79 mm[Hg] Dr. Stas Mora MD Work Phone: 5(435)728-592025 [place] [address] 09-01-2024 11:00-0400 Heart rate 70 /min Dr. Stas Mora MD Work Phone: 6(638)081-519525 [place] [address] 09-01-2024 11:00-0400 Respiratory rate 18 /min Dr. Stas Mora MD Work Phone: 7(048)442-619325 [place] [address] 09-01-2024 11:00-0400 SaO2% (BldA) [Mass fraction] 98 % Dr. Stas Mora MD Work Phone: 2(491)230-715725 [place] [address] 09-01-2024 11:00-0400 Systolic blood pressure 180 mm[Hg] Dr. Stas Mora MD Work Phone: 7(545)257-698025 [place] [address] 09-01-2024 09:52-0400 Body temperature 98.9 [degF] Dr. Stas Mora MD Work Phone: 0(238)998-652525 [place] [address] 09-01-2024 07:31-0400 Body height 182.[address] Stas Mora MD Work Phone: 7(309)519-922925 [place] [address] 09-01-2024 07:31-0400 Body mass index (BMI) [Ratio] 23.4 kg/m2 Dr. Stas Mora MD Work Phone: 5(500)186-705525 [place] [address] 09-01-2024 07:31-0400 Body weight 78.[address] Stas Mora MD Work Phone: 5(897)754-748325 [place] [address] 08-31-2024 11:05-0400 Body mass index (BMI) [Ratio] 22.35 kg/m2 Luciana Cisneros MD Work Phone: [facility] 08-31-2024 11:05-0400 Body weight 73.94 kg Luciana Cisneros MD Work Phone: [facility] 08-31-2024 11:05-0400 Diastolic blood pressure 74 mm[Hg] Luciana Cisneros MD Work Phone: [facility] 08-31-2024 11:05-0400 Heart rate 74 /min Luciana Cisneros MD Work Phone: [facility] 08-31-2024 11:05-0400 Respiratory rate 12 /min Luciana Cisneros MD Work Phone: [facility] 08-31-2024 11:05-0400 SaO2% (BldA) [Mass fraction] 98 % Luciana Cisneros MD Work Phone: [facility] 08-31-2024 11:05-0400 Systolic blood pressure 124 mm[Hg] Luciana Cisneros MD Work Phone: [facility] 07-28-2024 11:12-0400 Diastolic blood pressure 78 mm[Hg] Stas Mora MD Work Phone: [facility] 07-28-2024 11:12-0400 Systolic blood pressure 136 mm[Hg] Stas Mora MD Work Phone: [facility] 07-28-2024 11:10-0400 Body mass index (BMI) [Ratio] 22.4 kg/m2 Stas Mora MD Work Phone: [facility] 07-28-2024 11:10-0400 Body weight 74.1 kg Stas Mora MD Work Phone: [facility] 07-28-2024 11:10-0400 Heart rate 56 /min Stas Mora MD Work Phone: [facility] 07-28-2024 11:10-0400 Respiratory rate 16 /min Stas Mora MD Work Phone: [facility] 06-01-2024 14:52-0400 Body height 181.9 cm Luciana Cisneros MD Work Phone: [facility] 06-01-2024 14:52-0400 Body mass index (BMI) [Ratio] 22.33 kg/m2 Luciana Cisneros MD Work Phone: [facility] 06-01-2024 14:52-0400 Body weight 73.85 kg Luciana Cisneros MD Work Phone: [facility] 06-01-2024 14:52-0400 Diastolic blood pressure 60 mm[Hg] Luciana Cisneros MD Work Phone: [facility] 06-01-2024 14:52-0400 Heart rate 46 /min Luciana Cisneros MD Work Phone: [facility] 06-01-2024 14:52-0400 SaO2% (BldA) [Mass fraction] 98 % Luciana Cisneros MD Work Phone: [facility] 06-01-2024 14:52-0400 Systolic blood pressure 132 mm[Hg] Luciana Cisneros MD Work Phone: [facility] 05-26-2024 09:18-0500 Diastolic blood pressure 82 mm[Hg] Stas Mora MD Work Phone: [facility] 05-26-2024 09:18-0500 Systolic blood pressure 144 mm[Hg] Stas Mora MD Work Phone: [facility] 05-26-2024 09:06-0500 Body mass index (BMI) [Ratio] 22.19 kg/m2 Stas Mora MD Work Phone: [facility] 05-26-2024 09:06-0500 Body weight 73.5 kg Stas Mora MD Work Phone: [facility] 05-26-2024 09:06-0500 Heart rate 56 /min Stas Mora MD Work Phone: [facility] 05-26-2024 09:06-0500 Respiratory rate 18 /min Stas Mora MD Work Phone: [facility] 04-27-2024 09:34-0500 Body height 182 cm Luciana Cisneros MD Work Phone: [facility] 04-27-2024 09:34-0500 Body mass index (BMI) [Ratio] 22.51 kg/m2 Luciana Cisneros MD Work Phone: [facility] 04-27-2024 09:34-0500 Body weight 74.57 kg Luciana Cisneros MD Work Phone: [facility] 04-27-2024 09:34-0500 Diastolic blood pressure 62 mm[Hg] Luciana Cisneros MD Work Phone: [facility] 04-27-2024 09:34-0500 Heart rate 60 /min Luciana Cisneros MD Work Phone: [facility] 04-27-2024 09:34-0500 SaO2% (BldA) [Mass fraction] 98 % Luciana Cisneros MD Work Phone: [facility] 04-27-2024 09:34-0500 Systolic blood pressure 110 mm[Hg] Luciana Cisneros MD Work Phone: [facility] 11-26-2023 10:33-0400 Diastolic blood pressure 80 mm[Hg] Stas Mora MD Work Phone: [facility] 11-26-2023 10:33-0400 Systolic blood pressure 144 mm[Hg] Stas Mora MD Work Phone: [facility] 11-26-2023 10:22-0400 Body mass index (BMI) [Ratio] 21.95 kg/m2 Stas Mora MD Work Phone: [facility] 11-26-2023 10:22-0400 Body weight 71.4 kg Stas Mora MD Work Phone: [facility] 11-26-2023 10:22-0400 Heart rate 60 /min Stas Mora MD Work Phone: [facility] 11-26-2023 10:22-0400 Respiratory rate 18 /min Stas Mora MD Work Phone: [facility] 09-15-2023 08:38-0400 Body mass index (BMI) [Ratio] 24.52 kg/m2 Stas Mora MD Work Phone: [facility] 09-15-2023 08:38-0400 Body weight 79.74 kg Stas Mora MD Work Phone: [facility] 09-15-2023 08:38-0400 Diastolic blood pressure 84 mm[Hg] Stas Mora MD Work Phone: [facility] 09-15-2023 08:38-0400 Heart rate 76 /min Stas Mora MD Work Phone: [facility] 09-15-2023 08:38-0400 Respiratory rate 18 /min Stas Mora MD Work Phone: [facility] 09-15-2023 08:38-0400 Systolic blood pressure 138 mm[Hg] Stas Mora MD Work Phone: [facility] 08-14-2023 09:57-0400 Body mass index (BMI) [Ratio] 22.59 kg/m2 Stas Mora MD Work Phone: [facility] 08-14-2023 09:57-0400 Body weight 73.48 kg Stas Mora MD Work Phone: [facility] 08-14-2023 09:57-0400 Diastolic blood pressure 80 mm[Hg] Stas Mora MD Work Phone: [facility] 08-14-2023 09:57-0400 Heart rate 64 /min Stas Mora MD Work Phone: [facility] 08-14-2023 09:57-0400 Respiratory rate 14 /min Stas Mora MD Work Phone: [facility] 08-14-2023 09:57-0400 Systolic blood pressure 140 mm[Hg] Stas Mora MD Work Phone: [facility] 06-01-2023 15:08-0400 Body weight 75.75 kg Stas Mora MD Work Phone: [facility] 06-01-2023 15:08-0400 Diastolic blood pressure 90 mm[Hg] Stas Mora MD Work Phone: [facility] 06-01-2023 15:08-0400 Heart rate 82 /min Stas Mora MD Work Phone: [facility] 06-01-2023 15:08-0400 Respiratory rate 16 /min Stas Mora MD Work Phone: [facility] 06-01-2023 15:08-0400 SaO2% (BldA) [Mass fraction] 100 % Stas Mora MD Work Phone: [facility] 06-01-2023 15:08-0400 Systolic blood pressure 140 mm[Hg] Stas Mora MD Work Phone: [facility] 02-16-2023 13:57-0500 Diastolic blood pressure 62 mm[Hg] Stas Mora MD Work Phone: [facility] 02-16-2023 13:57-0500 Heart rate 62 /min Stas Mora MD Work Phone: [facility] 02-16-2023 13:57-0500 Respiratory rate 16 /min Stas Mora MD Work Phone: [facility] 02-16-2023 13:57-0500 Systolic blood pressure 110 mm[Hg] Stas Mora MD Work Phone: [facility] 02-10-2023 16:59-0500 Diastolic blood pressure 68 mm[Hg] [facility] 02-10-2023 16:59-0500 Heart rate 79 /min [facility] 02-10-2023 16:59-0500 Respiratory rate 12 /min [facility] 02-10-2023 16:59-0500 SaO2% (BldA) [Mass fraction] 98 % [facility] 02-10-2023 16:59-0500 Systolic blood pressure 153 mm[Hg] [facility] 02-10-2023 14:37-0500 Body mass index (BMI) [Ratio] 22.1 kg/m2 [facility] 02-10-2023 14:37-0500 Body weight 74.3 kg [facility] 02-10-2023 14:32-0500 Body height 182.88 cm [facility] 02-10-2023 14:32-0500 Body temperature 98 [degF] [facility] 11-17-2022 17:22-0400 Diastolic Blood Pressure Non-Invasive 68 1 STERLING [employer] DO [facility] 11-17-2022 17:22-0400 Heart rate 76 /min STER[employer]ING [employer] DO [facility] 11-17-2022 17:22-0400 Respiratory rate 18 /min STERLING [employer] DO [facility] 11-17-2022 17:22-0400 Systolic Blood Pressure Non-Invasive 126 1 STERLING [employer] DO [facility] 11-17-2022 15:23-0400 Body height 185.4 cm STERLING [employer] DO [facility] 11-17-2022 15:23-0400 Body temperature 97.88 [degF] STERLING [employer] DO [facility] 11-17-2022 15:23-0400 Body weight 79.6 kg ST[employer]ING [employer] DO [facility] 11-17-2022 15:23-0400 Diastolic Blood Pressure Non-Invasive 70 1 STERLING [employer] DO [facility] 11-17-2022 15:23-0400 Heart rate 89 /min STERLING [employer] DO [facility] 11-17-2022 15:23-0400 Respiratory rate 18 /min STERLING [employer] DO [facility] 11-17-2022 15:23-0400 Systolic Blood Pressure Non-Invasive 134 1 STERLING LYNCH DO [facility] 08-26-2022 13:12-0400 Body height 180.3 cm Stas Mora MD Work Phone: [facility] 08-26-2022 13:12-0400 Body weight 78.74 kg Stas Mora MD Work Phone: [facility] 08-26-2022 13:12-0400 Diastolic blood pressure 74 mm[Hg] Stas Mora MD Work Phone: [facility] 08-26-2022 13:12-0400 Heart rate 66 /min Stas Mora MD Work Phone: [facility] 08-26-2022 13:12-0400 Respiratory rate 16 /min Stas Mora MD Work Phone: [facility] 08-26-2022 13:12-0400 Systolic blood pressure 122 mm[Hg] Stas Mora MD Work Phone: [facility] 12-26-2021 11:22-0400 Body weight 78.56 kg Stas Mora MD Work Phone: [facility] 12-26-2021 11:22-0400 Diastolic blood pressure 80 mm[Hg] Stas Mora MD Work Phone: [facility] 12-26-2021 11:22-0400 Heart rate 58 /min Stas Mora MD Work Phone: [facility] 12-26-2021 11:22-0400 Respiratory rate 16 /min Stas Mora MD Work Phone: [facility] 12-26-2021 11:22-0400 Systolic blood pressure 142 mm[Hg] Stas Mora MD Work Phone: [facility] 12-22-2021 11:13-0400 Body temperature 97.6 [degF] Dr. Stas Mora Work Phone: [facility] Work Phone: 12-22-2021 11:13-0400 Diastolic blood pressure 58 mm[Hg] Dr. Stas Mora Work Phone: [facility] Work Phone: 12-22-2021 11:13-0400 Heart rate 63 /min Dr. Stas Mora Work Phone: [facility] Work Phone: 12-22-2021 11:13-0400 Respiratory rate 16 /min Dr. Stas Mora Work Phone: [facility] Work Phone: 12-22-2021 11:13-0400 SaO2% (BldA) [Mass fraction] 96 % Dr. Stas Mora Work Phone: [facility] Work Phone: 12-22-2021 11:13-0400 Systolic blood pressure 142 mm[Hg] Dr. Stas Mora Work Phone: [facility] Work Phone: 12-21-2021 20:06-0400 Body height 182.[address] Stas Mora Work Phone: [facility] Work Phone: 12-21-2021 20:06-0400 Body mass index (BMI) [Ratio] 22.6 kg/m2 Dr. Stas Mora Work Phone: [facility] Work Phone: 12-21-2021 20:06-0400 Body weight 75.[address] Stas Mora Work Phone: [facility] Work Phone: 12-21-2021 19:15-0400 Diastolic blood pressure 81 mm[Hg] [facility] Work Phone: 12-21-2021 19:15-0400 Heart rate 70 /min [facility] Work Phone: 12-21-2021 19:15-0400 Respiratory rate 18 /min [facility] Work Phone: 12-21-2021 19:15-0400 SaO2% (BldA) [Mass fraction] 96 % [facility] Work Phone: 12-21-2021 19:15-0400 Systolic blood pressure 171 mm[Hg] [facility] Work Phone: 12-21-2021 19:02-0400 Body temperature 97.6 [degF] [facility] Work Phone: 12-21-2021 18:17-0400 Body height 182.88 cm [facility] Work Phone: 12-21-2021 18:17-0400 Body mass index (BMI) [Ratio] 24.2 kg/m2 [facility] Work Phone: 12-21-2021 18:17-0400 Body weight 80.9 kg [facility] Work Phone: 09-05-2021 11:21-0400 Body height 182.9 cm Stas Mora MD Work Phone: [facility] 09-05-2021 11:21-0400 Body weight 80.2 kg Stas Mora MD Work Phone: [facility] 09-05-2021 11:21-0400 Diastolic blood pressure 70 mm[Hg] Stas Mora MD Work Phone: [facility] 09-05-2021 11:21-0400 Heart rate 62 /min Stas Mora MD Work Phone: [facility] 09-05-2021 11:21-0400 Respiratory rate 16 /min Stas Mora MD Work Phone: [facility] 09-05-2021 11:21-0400 Systolic blood pressure 136 mm[Hg] Stas Mora MD Work Phone: [facility] 07-08-2021 10:41-0400 Body weight 83.55 kg Stas Mora MD Work Phone: [facility] 07-08-2021 10:41-0400 Diastolic blood pressure 78 mm[Hg] Stas Mora MD Work Phone: [facility] 07-08-2021 10:41-0400 Heart rate 60 /min Stas Mora MD Work Phone: [facility] 07-08-2021 10:41-0400 Respiratory rate 16 /min Stas Mora MD Work Phone: [facility] 07-08-2021 10:41-0400 Systolic blood pressure 120 mm[Hg] Stas Mora MD Work Phone: [facility] Encounters Encounter Date Encounter Type Care Provider Facility Start: 01-25-2025 ambulatory Shayy GAMA Fa cility:[facility] Start: 01-23-2025 ambulatory Stas Mora Facilit y:[facility] Start: 01-10-2025 ambulatory Stas Mora Facilit y:[facility] Start: 12-28-2024 End: 12-28-2024 ambulatory Halina Carmona [employer] Facility:[facility] Start: 12-22-2024 End: 12-22-2024 ambulatory Cj Costa PA Facility:[facility] Start: 12-21-2024 Registered Referred Shayy Berrios Start: 12-21-2024 End: 12-21-2024 ambulatory Stas Mora Facility:[facility] Start: 12-14-2024 Registered Referred Shayy Berrios Start: 12-14-2024 End: 12-14-2024 ambulatory Stas Mora Facility:[facility] Start: 11-30-2024 Registered Referred Shayy Berrios Start: 11-29-2024 End: 11-30-[address] Stas Mora MD Work Phone: [facility] [place] Start: 11-29-2024 End: 11-29-[address] Shayy Curtis MD -[facility] Work Phone: Start: 11-25-2024 [facility] Start: 11-24-2024 End: 11-25-[address] Stas Mora MD Work Phone: [facility] [place] Start: 11-24-2024 End: 11-24-2024 Patient encounter procedure Halina HO -[facility] Work Phone: Start: 11-23-2024 ambulatory Efewongbe Oleghe OLS Fa cility:[facility] Start: 11-23-2024 Registered Referred Shayy Maloney[facility]mer [facility] Start: 11-02-2024 ambulatory Efewongirlanda Salazarghe [facility]LS [facility] [facility] Start: 11-02-2024 Registered Referred Shayy [place] Start: 10-31-2024 ambulatory Efewongbe Martinghe OLS Fa cility:[facility] Start: 10-31-2024 Registered Referred Shayy MaloneyElmer [place] Start: 10-25-2024 End: 10-25-[address] Stas Mora MD Work Phone: [facility] Start: 10-25-2024 End: 10-25-[address] [facility]: Start: 10-20-2024 End: 10-20-[address] Stas Mora MD Work Phone: [facility] Start: 10-20-2024 End: 10-20-2024 Patient encounter [facility] Phone: Start: 10-06-2024 ambulatory Efewongbe Gabee OLS Fa cility:[facility] Start: 10-06-2024 Registered Referred Shayy [place] Start: 10-05-2024 ambulatory Shayy GAMA Fa cility:[facility] Start: 10-05-2024 Registered Referred Shayy Olgu[place] Start: 09-30-2024 End: 09-30-[address] Stas Mora MD Work Phone: [facility] Start: 09-30-2024 End: 09-30-2024 Patient encounter procedure Halina Carmona [employer] -[facility] Work Phone: Start: 09-29-2024 ambulatory Efbaldomero GAMA Fa cility:[facility] Start: 09-29-2024 Registered Referred Shayy Cardozo Start: 09-28-2024 End: 09-28-[address] Stas Mora MD Work Phone: -[facility] Start: 09-28-2024 End: 09-28-2024 Departed Referred Shayy Cardozo Start: 09-28-2024 Registered Referred Shayy Cardozo Start: 09-28-2024 End: 09-28-2024 ambulatory Shayy GAMA Facility:[facility] Start: 09-26-2024 End: 09-26-[address] Stas Mora MD Work Phone: -[facility] Start: 09-26-2024 End: 09-26-2024 Departed Referred Shayy Cardozo Start: 09-26-2024 Registered Referred Shayy Cardozo Start: 09-26-2024 End: 09-26-2024 ambulatory Efbaldomero GAMA Facility:[facility] Start: 09-23-2024 ambulatory Efabldomero GAMA Fa cility:[facility] Start: 09-23-2024 Registered Referred Shayy Cardozo Start: 09-21-2024 End: 09-22-2024 Telephone encounter Stas Mora MD Work Phone: [facility] Start: 09-21-2024 ambulatory Efbaldomero [place] OLS Fa cility:[facility] Start: 09-21-2024 Registered Referred Shayy Cardozo Start: 09-20-2024 End: 09-20-[address] Stas Mora MD Work Phone: [facility] [place] Start: 09-20-2024 End: 09-20-[address] Shayy Curtis MD -[facility] Work Phone: Start: 09-19-2024 ambulatory Efewongbe Gabee OLS Fa cility:[facility] Start: 09-19-2024 Registered Referred Shayy Cardozo Start: 09-15-2024 ambulatory Efewongbe Martintomye OLS Fa cility:[facility] Start: 09-15-2024 Registered Referred Shayy Cardozo Start: 09-14-2024 ambulatory Efewongbe Gabee OLS Fa cility:[facility] Start: 09-14-2024 Registered Referred Shayy Cardozo Start: 09-12-2024 ambulatory Efewongirlanda [place] OLS Fa cility:[facility] Start: 09-12-2024 Registered Referred Shayy Cardozo Start: 09-08-2024 End: 09-08-2024 Patient encounter procedure Halina HO -[facility] Work Phone: Start: 09-08-2024 End: 09-08-[address] Stas Mora MD Work Phone: [facility] [place] Start: 09-08-2024 Registered Referred Shayy Cardozo Start: 09-07-2024 End: 09-07-2024 [facility] Start: 09-07-2024 End: 09-07-[address] Stas Mora MD Work Phone: -[facility] Start: 09-07-2024 Registered Referred Shayy Curtis MD -[facility] Start: 09-06-2024 Non-patient / Non-visit Dr. Navid Dominguez MD -[facility] Work Phone: Start: 09-05-2024 Non-patient / Non-visit Dr. Navid Dominguez MD [facility] Work Phone: Start: 09-04-2024 Non-patient / Non-visit Dr. Jia Wells MD [facility] Work Phone: Start: 09-03-2024 Non-patient / [facility]: Start: 09-02-2024 Non-patient / Non-visit Dr. Jia Wells MD [facility] Work Phone: Start: 09-02-2024 ambulatory Kathy Jimenez Facility :[facility] Start: 09-02-2024 End: 09-06-2024 Evaluation and management of inpatient Dr. Navid Dominguez MD -[facility] Work Phone: Start: 09-01-2024 End: 09-01-2024 Telephone encounter [facility] Work Phone: [facility] Comment on above: Medication Problem ( Cost) Start: 09-01-2024 ambulatory Kathy Jimenez Facility :[facility] Start: 09-01-2024 Evaluation and management of inpatient Dr. Kathy Wells MD -[facility] Work Phone: Start: 09-01-2024 Non-patient / Non-visit Dr. Jia [facility] Work Phone: Start: 09-01-[address] Stas Mora MD Work Phone: [facility] Work Phone: Start: 08-31-2024 End: 08-31-2024 Telephone encounter Coretta Jalloh [facility] Amb[facility] Telemanagement Comment on above: Anticoagulation Tele phone Fu (Home INR result ) Start: 08-31-2024 End: 08-31-[address] [facility] Facility:[facility] Start: 08-31-2024 End: 08-31-2024 Office outpatient visit 25 minutes Luciana Cisneros MD Work Phone: Geriatrics Comment on above: Moderate dementia wi thout behavioral disturbance, psychotic disturbance, mood disturbance, or anxiety, unspecified dementia type (HCC) (Primary Dx); Hallucinations; Screening for depression; Encounter for screening examination for other mental health and behavioral disorders Start: 08-31-2024 End: 08-31-2024 ambulatory LUCIANA CISNEROS Facility:[facility] Start: 08-03-2024 End: 08-03-2024 Telephone encounter Coretta Jalloh [facility] Ambulatory Telemanagement Comment on above: Anticoagulation Tele phone Fu (Lab INR result) Start: 08-03-2024 End: 08-03-[address] [facility] Facility:[facility] Start: 07-28-2024 End: 07-28-2024 Office outpatient visit 15 minutes Stas Mora MD Work Phone: [facility] Comment on above: Bursitis of right el bow, unspecified bursa (Primary Dx) Start: 07-28-2024 End: 07-28-2024 [facility] Start: 07-06-2024 End: 07-06-2024 Telephone encounter Coretta Jalloh [facility] Ambulatory Telemanagement Comment on above: Anticoagulation Tele phone Fu (Lab INR result ) Start: 07-06-2024 End: 07-06-[address] [facility] Facility:[facility] Start: 06-29-2024 End: 06-29-2024 Telephone encounter Coretta Jalloh [facility] Ambulatory Telemanagement Comment on above: Anticoagulation Tele phone Fu (Lab INR result ) Start: 06-29-2024 End: 06-29-2024 ambulatory STAS MORA Facility:[facility] Start: 06-01-2024 End: 06-01-2024 Office consultation new/estab patient 80 min Luciana Cisneros MD Work Phone: Geriatrics Comment on above: Mixed dementia (HCC) (Primary Dx); Vascular parkinsonism (HCC) Start: 06-01-2024 End: 06-01-2024 ambulatory LUCIANA CISNEROS Facility:[facility] Start: 06-01-2024 End: 08-01-2024 Follow-up encounter Luciana Cisneros MD Work Phone: Geriatrics Start: 05-26-2024 End: 05-26-2024 Telephone encounter Luciana Cisneros MD Work Phone: Geriatrics Comment on above: Appointment (Resched ule for geriatric f/u) Start: 05-26-2024 End: 05-26-2024 [facility] Start: 05-26-2024 End: 05-26-2024 Patient encounter procedure Stas Mora MD Work Phone: [facility] [place] Comment on above: Essential hypertensi on, benign (Primary Dx); Hyperlipidemia, unspecified hyperlipidemia type; Atherosclerosis of coronary artery without angina pectoris, unspecified vessel or lesion type, unspecified whether [place] or transplanted heart; Paroxysmal atrial fibrillation (HCC); Edema of both lower legs; History of stroke with residual effects; Dementia, unspecified dementia severity, unspecified dementia type, unspecified whether behavioral, psychotic, or mood disturbance or anxiety (HCC) Start: 05-25-2024 End: 05-25-2024 Telephone encounter Paige Hickman [facility] Ambulatory Telemanagement Comment on above: Anticoagulation Tele phone Fu (Lab INR Result ) Start: 05-25-2024 End: 05-25-2024 ambulatory STAS MORA Facility:[facility] Start: 05-23-2024 ambulatory LUCIANA CISNEROS Facility :[id number] Start: 05-23-2024 End: 05-23-2024 Subsequent hospital visit by physician [facility] Work Phone: [facility] Comment on above: Cognitive impairment , mild, 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] Start: 04-28-2024 End: 04-29-2024 Telephone encounter Stas Mora MD Work Phone: [facility] [place] Comment on above: Results Start: 04-27-2024 End: 04-27-2024 Telephone encounter Coretta Jalloh [facility] Ambulatory Telemanagement Comment on above: Anticoagulation Tele phone Fu (Lab INR result ) Start: 04-27-2024 End: 04-27-2024 ambulatory [facility] Facility:[facility] Start: 04-27-2024 End: 04-27-2024 Assmt & care planning pt w/cognitive impairment Luciana Cisneros MD Work Phone: Geriatrics Comment on above: Dementia, unspecifie d dementia severity, unspecified dementia type, unspecified whether behavioral, psychotic, or mood disturbance or anxiety (HCC) (Primary Dx); Cognitive impairment; Cognitive impairment, mild, so stated; Shuffling gait; Ambulatory dysfunction; Balance disorder Start: 04-27-2024 End: 04-27-2024 [facility] Facility:[facility] Start: 04-25-2024 End: 04-25-2024 Telephone encounter Stas Mora MD Work Phone: [facility] [place] Comment on above: memory issues Start: 04-13-2024 End: 04-13-2024 [facility] Telemanagement Comment on above: Anticoagulation Tele phone Fu (Home INR result ) Start: 04-13-2024 End: 04-13-2024 ambulatory STAS MORA Facility:[facility] Start: 03-30-2024 End: 03-30-2024 Telephone encounter Coretta Jalloh [facility] Ambulatory Telemanagement Comment on above: Anticoagulation Tele phone Fu (Lab INR result ) Start: 03-30-2024 End: 03-30-2024 ambulatory STAS MORA Facility:[facility] Start: 03-17-2024 End: 03-17-2024 Telephone encounter Josy Gandhi [facility] Comment on above: Anticoagulation Tele phone Fu (Lab INR result ) Start: 03-17-2024 End: 03-17-2024 ambulatory STAS MORA Facility:[facility] Start: 03-03-2024 End: 03-03-2024 Telephone encounter Elise Paredes [facility] Ambulatory Telemanagement Comment on above: Anticoagulation Tele phone Fu (Lab INR result) Start: 03-03-2024 End: 03-03-2024 ambulatory [facility] Facility:[facility] Start: 02-10-2024 End: 02-10-2024 Telephone encounter [facility] Telemanagement Comment on above: Anticoagulation Tele phone Fu (Lab INR result ) Start: 02-10-2024 End: 02-10-2024 ambulatory [facility] Facility:[facility] Start: 01-20-2024 End: 01-20-2024 Telephone encounter [facility] Ambulatory Telemanagement Comment on above: Anticoagulation Tele phone Fu (Lab INR results ) Start: 01-04-2024 End: 01-04-2024 Telephone encounter Stas Mora MD Work Phone: [facility] Comment on above: Medication Request Start: 12-24-2023 End: 12-24-2023 Telephone encounter Elise Paredes [facility] Ambulatory Telemanagement Comment on above: Anticoagulation Tele phone Fu (Lab INR) Start: 12-10-2023 End: 12-10-2023 Telephone encounter Elise Paredes [facility] Ambulatory Telemanagement Comment on above: Anticoagulation Tele phone Fu (Lab INR) Start: 11-26-2023 End: 11-26-2023 Telephone encounter Elise Paredes [facility] Ambulatory Telemanagement Comment on above: Anticoagulation Tele phone Fu (Lab INR) Start: 11-26-2023 End: 11-26-2023 Patient encounter procedure Stas Mora MD Work Phone: [facility] [place] Comment on above: Essential hypertensi on, benign (Primary Dx); Hyperlipidemia, unspecified hyperlipidemia type; Edema of both lower legs; Paroxysmal atrial fibrillation (HCC); History of stroke with residual effects; 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, psychotic disturbance, mood disturbance, or anxiety (HCC); Urinary frequency; Abnormal CBC Start: 11-18-2023 End: 11-18-2023 Telephone encounter Coretta Jalloh [facility] Ambulatory Telemanagement Comment on above: Anticoagulation Tele phone Fu (Home INR) Start: 11-16-2023 End: 11-16-2023 Refill Stas Mora MD Work Phone: [facility] [place] Comment on above: Refill Request Start: 10-14-2023 Telephone encounter [facility]ta [facility]alloh [facility] Comment on above: Anticoagulation Tele phone Fu (Home INR results ) Start: 09-16-2023 Telephone encounter Colleen Sommer [facility] Ambulatory Telemanagement Comment on above: Anticoagulation Tele phone Fu Start: 09-15-2023 End: 09-15-2023 Patient encounter procedure Stas Mora MD Work Phone: [facility] Comment on above: Edema of both lower legs (Primary Dx) Start: 09-14-2023 End: 09-14-2023 ambulatory Nurse Intm/Famp Triage [facility] Work Phone: Nurse Phone [...] results ) Start: 07-16-2023 Refill Elvis RASHID RN.ASSOCIATE PROFESSOR OF MUSICOLOGY Work Phone: [facility] [place] Comment on above: Refill [...] Jerzy Easton MD Work Phone: [facility] [place] Comment on above: Anticoagulation Start: 06-11-2023 Telephone encounter Stas miranda MD Work Phone: [facility] [place] Comment on above: Anticoagulation Start: 06-08-2023 Telephone encounter Jenna Armenta deof STRAPPER.ASSOCIATE PROFESSOR OF MUSICOLOGY Work Phone: [facility] [place] Comment on above: Erroneous encounter- disregard Anticoagulation Start: 06-05-2023 Telephone encounter Jenna Armenta deof STRAPPER.ASSOCIATE PROFESSOR OF MUSICOLOGY Work Phone: [facility] [place] Comment on above: Results (Labs, Criti cleopatra ) Start: 06-04-2023 ambulatory Hortencia Winston RN NURSE O N CALL Comment on above: Results, Lab High Protime and INR Start: 06-04-2023 E-mail encounter fro m caregiver Jasmin Bell MD Work Phone: [facility] [place] Start: 06-04-2023 Telephone encounter Jenna Armenta nhof STRAPPER.ASSOCIATE PROFESSOR OF MUSICOLOGY Work Phone: [facility] [place] Comment on above: Results; Orders (Lab s ) Start: 06-03-2023 Telephone encounter [facility]oretta [facility]alloh [facility] Amb[facility] Tele[facility] Comment on above: Anticoagulation Tele phone Fu (Lab INR results ) Start: 06-01-2023 End: 06-01-2023 Patient encounter procedure Stas Mora MD Work Phone: [facility] [place] Comment on above: Essential hypertensi on, benign (Primary Dx); Paroxysmal atrial fibrillation (HCC); Atherosclerosis of coronary artery without angina pectoris, unspecified vessel or lesion type, unspecified whether [place] or transplanted heart; Hyperlipidemia, unspecified hyperlipidemia type; [...] 05-13-2023 Telephone encounter Senia Phillips [facility] Ambulatory Telemanagement Comment on [...] 02-20-2023 Telephone encounter Elise Paredes [facility] Comment on above: Anticoagulation Tele phone Fu (Lab INR) Start: 02-17-2023 Telephone encounter Stas miranda MD Work Phone: [facility] [place] Comment on above: Results Start: 02-17-2023 End: 02-17-2023 Subsequent hospital visit by physician Mri [facility] (I-Stat/1.5t) Work Phone: Radiology [...] 02-13-2023 Telephone encounter Elise Paredes [facility] Ambulatory Telemanagement Comment on above: Anticoagulation Tele phone Fu (Lab INR) Start: 02-10-2023 End: 02-10-2023 Emergency department patient visit [facility] Work Phone: Start: 02-06-2023 Telephone encounter Senia Phillips [facility] P harm[facility] Ambulatory Telemanagement Comment on above: Anticoagulation Tele phone Fu (INR Lab Result) Start: 01-19-2023 Telephone encounter [facility] Amb[facility] Tele[facility] Comment on above: Anticoagulation Tele phone Fu Start: 01-16-2023 Orders Only Stas newman MD Work Phone: [facility] Comment on above: 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); [...] 11-17-2022 Emergency department patient visit [facility] Start: 11-07-2022 Telephone encounter Senia Cross [...] result Start: 09-26-2022 Telephone encounter Jeimy Duong [facility] Comment on above: Anticoagulation Tele phone Fu (Lab INR result) Start: 09-12-2022 Telephone encounter Jeimy Duong [facility] Comment on above: Anticoagulation Tele phone Fu (Lab INR result) Start: 08-26-2022 End: 08-26-2022 Patient encounter procedure Stas Mora MD Work Phone: [facility] Comment on above: Encounter for [...] 07-04-2022 Telephone encounter Lety Gandara [facility] Comment on above: Anticoagulation Tele phone Fu (Lab INR result ) Start: 06-23-2022 Refill Elvis RASHID RN.[facility] Work Phone: [facility] Comment on above: Refill Request Start: 06-20-2022 Telephone encounter Senia Cross [facility] Ambulatory Telemanagement Comment on above: Anticoagulation Tele phone Fu (INR Lab Result) Start: 06-06-2022 Telephone encounter Senia Cross RPh P harmacy Ambulatory Telemanagement Comment on above: Anticoagulation Tele phone Fu (INR Lab Result) Start: 05-30-2022 Telephone encounter Stas miranda MD Work Phone: [facility] [place] Comment on above: Opened In Error Start: 05-22-2022 Telephone encounter Jenna Armenta nhof STRAPPERSamuelASSOCIATE PROFESSOR OF MUSICOLOGY Work Phone: [facility] [place] Comment on above: Results (X-ray hip) Start: 05-21-2022 End: 05-21-2022 Subsequent hospital visit by physician Xr [facility] [place] Work Phone: Radiology Comment on above: Left hip pain [M25.5 52] Start: 05-21-2022 ambulatory Fani Grace RN NURSE O N CALL Comment on above: Fall Fall; Hip Pain Start: 05-19-2022 Telephone encounter Stas miranda MD Work Phone: [facility] [place] Comment on above: Anticoagulation Start: 05-16-2022 [...] 04-04-2022 Telephone encounter Elise Paredes [facility] Comment on above: Anticoagulation Tele phone Fu (Lab INR) Start: 03-31-2022 Telephone encounter Stas miranda MD Work Phone: [facility] [place] Comment on above: Release Of Medical R ecords ([place] PCP) Start: 03-21-2022 Telephone encounter Carmelina Cruz [facility] Comment on above: Anticoagulation Tele phone Fu Start: 02-21-2022 Telephone encounter Kristian Ferguson MD Work Phone: [facility] [place] Comment on above: Anticoagulation Start: 02-10-2022 Telephone encounter Stas miranda MD Work Phone: [facility] [place] Comment on above: Opened In Error Start: 01-27-2022 Telephone encounter [facility] Amb[facility] Tele[facility] Comment on above: Anticoagulation Tele phone Fu (Lab INR Result) Start: 01-20-2022 Telephone encounter [facility] Ambulatory Telemanagement Comment on above: Anticoagulation Tele phone Fu (Lab INR Result) Start: 01-17-2022 Telephone encounter Stas miranda MD Work Phone: [facility] Comment on above: Anticoagulation; Cri tical Results (INR) Start: 01-13-2022 Refill Stas newman MD Work Phone: [facility] Comment on above: Refill Request; Refi ll Request Start: 01-03-2022 Telephone encounter Senia Alan [facility] Comment on above: Anticoagulation Tele phone Fu (INR Home Test Result) Start: 01-02-2022 Telephone encounter Stas miranda MD Work Phone: [facility] Comment on above: Results Start: 12-26-2021 End: 12-26-2021 Patient encounter procedure Stas Mora MD Work Phone: [facility] Comment on above: Hospital discharge f ollow-up (Primary Dx); Encounter for immunization; TIA (transient ischemic attack); Thyroid nodule; Essential hypertension, benign; Paroxysmal atrial fibrillation (HCC); Atherosclerosis of coronary artery without angina pectoris, unspecified vessel or lesion type, unspecified whether [place] or transplanted heart Start: 12-22-2021 Non-patient / Non-visit Dr. Maria E Mora Work Phone: [facility] Start: 12-21-2021 Non-patient / Non-visit Dr. Maria E Mora Work Phone: [facility] Start: 12-21-2021 End: 12-22-2021 Evaluation and management of inpatient [facility] Start: 12-21-2021 End: 12-22-[address] Stas Mora Work Phone: [facility] Work Phone: Start: 12-20-2021 Telephone encounter Stas miranda MD Work Phone: [facility] [place] Comment on above: Opened In Error Anticoagulation Tele phone Fu (INR Lab Result) Start: 12-06-2021 Telephone encounter Senia Cross [facility] Ambulatory Telemanagement Comment on above: Anticoagulation Tele phone Fu (INR Lab Result) Start: 11-22-2021 Telephone encounter Janice Sal [facility] Ambulatory Telemanagement Comment on above: Anticoagulation Tele phone Fu (INR) Start: 11-08-2021 Telephone encounter Stas miranda MD Work Phone: [facility] [place] Comment on above: Opened In Error Anticoagulation Tele phone Fu (INR Lab Result) Start: 10-25-2021 Telephone encounter Janice Sal [facility] Ambulatory Telemanagement Comment on above: Anticoagulation Tele phone Fu (lab INR ) Start: 09-27-2021 Telephone encounter Yomi Wills [facility] Ambulatory Telemanagement Comment on above: Anticoagulation Tele phone Fu (Lab INR Result) Start: 09-13-2021 Orders Only Stas newman MD Work Phone: [facility] [place] Comment on above: alf current us e of anticoagulant (Primary Dx); Encounter for monitoring Coumadin therapy Anticoagulation Tele phone Fu (INR Lab Result) Start: 09-05-2021 End: 09-05-2021 Patient encounter procedure Stas Mora MD Work Phone: [facility] [place] Comment on above: Encounter for Medica re annual wellness exam (Primary Dx); Paroxysmal atrial fibrillation (HCC); Essential hypertension, benign Start: 08-30-2021 Telephone encounter Jenna Armenta nhof STRAPPER.ASSOCIATE PROFESSOR OF MUSICOLOGY Work Phone: [facility] [place] Comment on above: Orders (INR ) Anticoagulation Tele phone Fu (INR Lab Result) Start: 08-16-2021 Orders Only Stas newman MD Work Phone: [facility] [place] Comment on above: Anticoagulation Start: 08-02-2021 Telephone encounter Senia Alan [facility] Comment on above: Anticoagulation Tele phone Fu (INR Lab Result) Start: 07-16-2021 Telephone encounter Stas miranda MD Work Phone: [facility] Comment on above: Results Start: 07-13-2021 Refill Elvis RASHID RN.ASSOCIATE PROFESSOR OF MUSICOLOGY Work Phone: [facility] Comment on above: Refill Request Start: 07-08-2021 End: 07-08-2021 Patient encounter procedure Stas Mora MD Work Phone: [facility] Comment on above: Essential hypertensi on, benign (Primary Dx); Atherosclerosis of coronary artery without angina pectoris, unspecified vessel or lesion type, unspecified whether [place] or transplanted heart; Paroxysmal atrial fibrillation (HCC); Primary osteoarthritis of both knees Start: 07-03-2021 Telephone encounter Stas miranda MD Work Phone: [facility] Comment on above: Anticoagulation Tele phone Fu (Lab INR result) Start: 06-12-2021 Telephone encounter Stas miranda MD Work Phone: [facility] Comment on above: Anticoagulation (Lab INR result) Start: 03-12-2020 End: 03-12-2020 Subsequent hospital visit by physician Xr [facility] Bernice Work Phone: Radiology Comment on above: Acute right-sided lo w back pain, unspecified whether sciatica present [M54.5] Start: 02-02-2018 Ambulatory DARRELL OLIVEIRA Facility :[facility] Start: 06-02-2017 End: 06-02-2017 [facility] DARRELL Radha [facility] Procedures Date Procedure [...] scr eening assessment Coretta Jalloh [facility] Start: 02-17-2023 Mri brain brain stem w/o contrast material Stas Mora MD Work Phone: Start: 02-10-2023 Plain chest X-ray Start: 02-10-2023 SARS-CoV-2 & FLU Ant igen (Rapid) Start: 05-21-2022 Radex hip unilateral with pelvis 2-3 views Jenna Fitzpatrick STRAPPER.ASSOCIATE PROFESSOR OF MUSICOLOGY Work Phone: Start: 05-19-2022 PROTHROMBIN TIME/PT [facility] [...] Detail Author Start: 02-27-2031 Urine microalbumin profile [facility] Start: 05-26-2027 Diabetes Screening Diabetes Screenaz g [facility] Start: 06-02-2026 Diabetes Screening Diabetes Screenaz g [facility] Start: 08-15-2025 DIABETES SCREEN DIABETES SCREEN [facility] Start: 08-15-2025 Diabetes Screening Diabetes Screenaz g [facility] Start: 05-25-2025 Hepatitis B surface antibody level LDL Cholesterol [facility] Start: 03-30-2025 End: 03-30-2025 Patient encounter procedure 03/30/2025 11:00 AM EST Office Visit Geriatrics [address] [facility], [place] [id number] Luciana Cisneros MD [address] [place], [place] [id number] follow up 6 months Geriatrics Comment on above: follow up 6 months Start: 02-21-2025 DIABETES SCREEN DIABETES SCREEN [facility] Start: 01-10-2025 Registered Referred Registered Refer [facility] -[facility] - Yash Start: 12-06-2024 DIABETES SCREEN DIABETES SCREEN [facility] Start: 12-05-2024 End: 12-05-2024 Patient encounter procedure 12/05/2024 12:40 PM EDT Office Visit [facility] [place] [address] [place] [address] Stas Mora MD [address] [place] [address] reschedule from 12/01 [facility] Comment on above: reschedule from 12/01 Start: 12-01-2024 End: 12-01-2024 Patient encounter procedure 12/01/2024 9:40 AM EDT Office Visit [facility] [place] [address] [facility], [place] [phone] Stas Mora MD [address] [place], [place] [id number] 6 mo f/u [facility] Comment on above: 6 mo f/u Start: 11-26-2024 End: 02-25-2025 CBC W Auto Differential panel - Blood COMPLETE BLOOD COUNT AND DIFFERENTIAL Lab Routine Essential hypertension, benign Expected: 11/26/2024 (Approximate), Expires: 02/25/2025 [facility] Comment on above: Expected: 11/26/2024 (Approximate), Expires: 02/25/2025 Start: 11-26-2024 End: 02-25-2025 Comprehensive metabolic 2000 panel - Serum or Plasma COMPREHENSIVE METABOLIC PANEL Lab Routine Essential hypertension, benign Hyperlipidemia, unspecified hyperlipidemia type Expected: 11/26/2024 (Approximate), Expires: 02/25/2025 [facility] Work Phone: Comment on above: Expected: 11/26/2024 (Approximate), Expires: 02/25/2025 Start: 11-26-2024 End: 02-25-2025 Lipid 1996 panel - Serum or Plasma LIPID PANEL BASIC Lab Routine Essential hypertension, benign Hyperlipidemia, unspecified hyperlipidemia type Expected: 11/26/2024 (Approximate), Expires: 02/25/2025 [facility] Comment on above: Expected: 11/26/2024 (Approximate), Expires: 02/25/2025 Start: 11-25-2024 RSV Vaccine (1 - 1-d ose 60+ series) RSV Vaccine (1 - 1-dose 60+ series) [facility] Comment on above: Postponed from 08/12 (Declined at this time) Start: 11-25-2024 RSV Vaccine (1 - 1-d ose 75+ series) RSV Vaccine (1 - 1-dose 75+ series) [facility] Comment on above: Postponed from 08/12 (Declined at this time) Start: 11-23-2024 [facility] Start: 11-21-2024 Influenza vaccination Influenza Vacc ine (#1) [facility] Start: 09-06-2024 Patient discharge [facility] Start: 09-02-2024 Admission procedure [facility] Start: 09-01-2024 End: 09-02-2024 [facility] Start: 09-01-2024 Blood culture Blood Culture [facility] Start: 09-01-2024 Application of intermittent pneumatic compression device [facility] Start: 09-01-2024 Fall prevention [facility] Start: 09-01-2024 Oxygen therapy [facility] Start: 09-01-2024 Provision of activit y privileges [facility] Start: 09-01-2024 Assessment of risk o f venous thromboembolism [facility] Start: 09-01-2024 Insertion of cathete r into peripheral vein [facility] Start: 09-01-2024 Providing care accor ding to standard [facility] Start: 09-01-2024 Referral to occupati onal therapist [facility] Start: 09-01-2024 Referral to service [facility] Start: 09-01-2024 [facility] Start: 09-01-2024 Following clinical pathway protocol [facility] Start: 09-01-2024 Admission procedure [facility] Start: 09-01-2024 Hospital admission, emergency, from emergency room, medical nature [facility] Start: 08-31-2024 End: 08-31-2024 Patient encounter procedure 08/31/2024 11:00 AM EDT Office Visit Geriatrics [address] [place] [address] Luciana Cisneros MD [address] [place] [address] 3 month f/u Geriatrics Comment on above: 3 month f/u Start: 2024 Anxiety Screening Anxiety Screening [facility] Start: 2024 Depression Screening Depression Scre ening [facility] Start: 07-08-2024 DIABETES SCREEN DIABETES SCREEN [facility] Start: 06-02-2024 Hepatitis B surface antibody level LDL Cholesterol [facility] Start: 06-01-2024 End: 06-01-2024 Patient encounter procedure 06/01/2024 3:00 PM EDT Office Visit Geriatrics [address] [place] [address] Luciana Cisneros MD [address] [place] [address] Follow up visit for MRI [facility]iatric[facility] Comment on above: Follow up visit for MRI Start: 06-01-2024 Covid-19 Vaccine () Covid-19 Vaccine () [facility] Start: 05-30-2024 End: 05-30-2024 Patient encounter procedure 05/30/2024 11:20 AM EDT Office Visit [facility] [place] [address] [place] [address] Luciana Cisneros MD [address] [place] [address] Follow up visit for MRI [facility] Comment on above: Follow up visit for MRI Start: 05-26-2024 End: 05-26-2024 Patient encounter procedure 05/26/2024 9:20 AM EST Office Visit [facility] [address] [place], [place] [id number] Stas Mora MD [address] [place] [address] 6 mo f/u [facility] Comment on above: 6 mo f/u Start: 05-25-2024 End: 08-24-2024 CBC W Auto Differential panel - Blood COMPLETE BLOOD COUNT AND DIFFERENTIAL Lab Routine Abnormal CBC Expected: 05/25/2024 (Approximate), Expires: 08/24/2024 [facility] Comment on above: Expected: 05/25/2024 (Approximate), Expires: 08/24/2024 Start: 05-25-2024 End: 08-24-2024 Comprehensive metabolic 2000 panel - Serum or Plasma COMPREHENSIVE METABOLIC PANEL Lab Routine Essential hypertension, benign Hyperlipidemia, unspecified hyperlipidemia type Expected: 05/25/2024 (Approximate), Expires: 08/24/2024 [facility] Work Phone: Comment on above: Expected: 05/25/2024 (Approximate), Expires: 08/24/2024 Start: 05-25-2024 End: 08-24-2024 Lipid 1996 panel - Serum or Plasma LIPID PANEL BASIC Lab Routine Essential hypertension, benign Hyperlipidemia, unspecified hyperlipidemia type Expected: 05/25/2024 (Approximate), Expires: 08/24/2024 [facility] Comment on above: Expected: 05/25/2024 (Approximate), Expires: 08/24/2024 Start: 05-25-2024 End: 05-25-2024 ambulatory 05/25/2024 8:30 AM EST Results Only [facility] [address] [facility] [place] [address] [facility] Start: 05-23-2024 End: 05-23-2024 Patient encounter procedure 05/23/2024 2:30 PM EST Appointment [facility] [address] [place] [address] Cognitive impairment, mild, 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] [facility] Comment on above: Cognitive impairment , mild, 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] Start: 04-29-2024 End: 04-29-2024 Patient encounter procedure 04/29/2024 3:40 PM EST Office Visit [facility] [place] [address] [place] [address] Stas Mora MD [address] [place], [place] [phone] memory issues,See TE [facility] [place] Comment on above: memory issues,See TE Start: 04-27-2024 End: 04-27-2024 Patient encounter procedure 04/27/2024 9:30 AM EST Office Visit Geriatrics [address] [place] [address] Luciana Cisneros MD [address] [place] [address] Dementia, unspecified dementia severity, unspecified dementia type, unspecified whether behavioral, psychotic, or mood disturbance or anxiety (HCC) [F03.90] [facility]iatric[facility] Comment on above: Dementia, unspecifie d dementia severity, unspecified dementia type, unspecified whether behavioral, psychotic, or mood disturbance or anxiety (HCC) [F03.90] Start: 03-23-2024 Advance Directive Discussion Advance Directive Discussion [facility] Start: 03-23-2024 Medicare Advantage A nnual Wellness Visit Medicare Advantage Annual Wellness Visit [facility] Start: 03-13-2024 DIABETES SCREEN DIABETES SCREEN [facility] Start: 11-26-2023 End: 11-26-2023 Patient encounter procedure [facility] [place] Comment on above: 6 month follow up 6 month follow up, jessica bashir, on aricept x 3 months Start: 11-22-2023 Covid-19 Vaccine () Covid-19 Vaccine () [facility] Start: 11-22-2023 Influenza vaccination Influenza Vacc ine (#1) [facility] Start: 09-15-2023 End: 09-15-2023 Patient encounter procedure 09/15/2023 8:40 AM EDT Office Visit [facility] [place] [address] [place] [id number] Stas Mora MD [address] [place], [place] [phone] leg swelling- both legs--See triage 09/14/2023. [facility] [place] Comment on above: leg swelling- both l egs--See triage 09/14/2023. Start: 08-16-2023 Hepatitis B surface antibody level LDL CHOLESTEROL [facility] Start: 08-14-2023 End: 08-14-2023 Patient encounter procedure 08/14/2023 10:00 AM EDT Office Visit [facility] [address] [place] [id number] Stas Mora MD [address] [place], [place] [phone] Memory Issues [facility] [place] [facility] Comment on above: Memory Issues Start: 06-04-2023 End: 09-03-2023 Ferritin [Mass/volume] in Serum or Plasma [facility] Work Phone: Comment on above: Expected: 06/04/2023 , Expires: 09/03/2023 Start: 06-04-2023 End: 09-03-2023 Iron and Iron binding capacity panel - Serum or Plasma [facility] Work Phone: Comment on above: Expected: 06/04/2023 , Expires: 09/03/2023 Start: 06-01-2023 End: 08-31-2023 CBC panel - Blood by Automated count CBC Lab Routine Paroxysmal atrial fibrillation (HCC) Essential hypertension, benign Expected: 06/01/2023 (Approximate), Expires: 08/31/2023 [facility] Work Phone: Comment on above: Expected: 06/01/2023 (Approximate), Expires: 08/31/2023 Start: 06-01-2023 End: 08-31-2023 Comprehensive metabolic 2000 panel - Serum or Plasma COMP METABOLIC PANEL Lab Routine Paroxysmal atrial fibrillation (HCC) Essential hypertension, benign Hyperlipidemia, unspecified hyperlipidemia type Expected: 06/01/2023 (Approximate), Expires: 08/31/2023 [facility] Work Phone: Comment on above: Expected: 06/01/2023 (Approximate), Expires: 08/31/2023 Start: 06-01-2023 End: 08-31-2023 Lipid 1996 panel - Serum or Plasma LIPID PANEL BASIC Lab Routine Paroxysmal atrial fibrillation (HCC) Essential hypertension, benign Hyperlipidemia, unspecified hyperlipidemia type Expected: 06/01/2023 (Approximate), Expires: 08/31/2023 [facility] Work Phone: Comment on above: Expected: 06/01/2023 (Approximate), Expires: 08/31/2023 Start: 05-13-2023 Covid-19 Vaccine () Covid-19 Vaccine () [facility] Start: 03-23-2023 Advance Directive Discussion Advance Directive Discussion [facility] Start: 03-23-2023 Behavioral Health Screening Behavioral Health Screening [facility] Start: 03-23-2023 Depression Assessment Depression Ass essment [facility] Start: 02-21-2023 Hepatitis B surface antibody level LDL CHOLESTEROL [facility] Start: 02-10-2023 [facility] Start: 12-06-2022 Hepatitis B surface antibody level LDL CHOLESTEROL [facility] Start: 11-21-2022 Covid-19 Vaccine () Covid-19 Vaccine () [facility] Start: 11-21-2022 Influenza vaccination [facility] Start: 09-05-2022 PNEUMOCOCCAL: 65+ (2 - PCV) PNEUMOCOCCAL: 65+ (2 - PCV) [facility] Comment on above: Postponed from 02/21 (Declined at this time) Start: 07-08-2022 Hepatitis B surface antibody level LDL CHOLESTEROL [facility] Start: 04-26-2022 COVID-19 VACCINE (6 - Pfizer series) COVID-19 VACCINE (6 - Pfizer series) [facility] Start: 03-23-2022 ADVANCE DIRECTIVE DISCUSSION ADVANCE DIRECTIVE DISCUSSION [facility] Start: 03-23-2022 DEPRESSION ASSESSMENT DEPRESSION ASS ESSMENT [facility] Start: 03-13-2022 Hepatitis B surface antibody level LDL CHOLESTEROL [facility] Start: 03-10-2022 End: 05-10-2022 CBC panel - Blood by Automated count CBC Lab Routine TIA (transient ischemic attack) Essential hypertension, benign Atherosclerosis of coronary artery without angina pectoris, unspecified vessel or lesion type, unspecified whether [place] or transplanted heart Expected: 03/10/2022 (Approximate), Expires: 05/10/2022 [facility] Work Phone: Comment on above: Expected: 03/10/2022 (Approximate), Expires: 05/10/2022 Start: 03-10-2022 End: 05-10-2022 Comprehensive metabolic 2000 panel - Serum or Plasma COMP METABOLIC PANEL Lab Routine TIA (transient ischemic attack) Essential hypertension, benign Atherosclerosis of coronary artery without angina pectoris, unspecified vessel or lesion type, unspecified whether [place] or transplanted heart Expected: 03/10/2022 (Approximate), Expires: 05/10/2022 [facility] Work Phone: Comment on above: Expected: 03/10/2022 (Approximate), Expires: 05/10/2022 Start: 03-10-2022 End: 05-10-2022 Lipid 1996 panel - Serum or Plasma LIPID PANEL BASIC Lab Routine TIA (transient ischemic attack) Essential hypertension, benign Atherosclerosis of coronary artery without angina pectoris, unspecified vessel or lesion type, unspecified whether [place] or transplanted heart Expected: 03/10/2022 (Approximate), Expires: 05/10/2022 [facility] Work Phone: Comment on above: Expected: 03/10/2022 (Approximate), Expires: 05/10/2022 Start: 01-03-2022 End: 03-05-2022 Comprehensive metabolic 2000 panel - Serum or Plasma COMP METABOLIC PANEL Lab Routine Atherosclerosis of coronary artery without angina pectoris, unspecified vessel or lesion type, unspecified whether [place] or transplanted heart Essential hypertension, benign Expected: 01/03/2022 (Approximate), Expires: 03/05/2022 [facility] Work Phone: Comment on above: Expected: 01/03/2022 (Approximate), Expires: 03/05/2022 Start: 01-03-2022 End: 03-05-2022 LIPID PANEL BASIC LIPID PANEL BASIC Lab Routine Atherosclerosis of coronary artery without angina pectoris, unspecified vessel or lesion type, unspecified whether [place] or transplanted heart Essential hypertension, benign Expected: 01/03/2022 (Approximate), Expires: 03/05/2022 [facility] Work Phone: Comment on above: Expected: 01/03/2022 (Approximate), Expires: 03/05/2022 Start: 12-24-2021 Prothrombin time [facility] Work Phone: Start: 12-23-2021 Prothrombin time [facility] Work Phone: Start: 12-22-2021 Patient discharge [facility] Work Phone: Start: 12-21-2021 Assessment of risk o f venous thromboembolism [facility] Work Phone: Start: 12-21-2021 Cardiac monitoring [facility] Work Phone: Start: 12-21-2021 Catheterization of vein [facility] Work Phone: Start: 12-21-2021 Continuous pulse oximetry [facility] Work Phone: Start: 12-21-2021 Elevation of head of bed [facility] Work Phone: Start: 12-21-2021 Exercises [facility] Work Phone: Start: 12-21-[address] anned interventions [facility] Work Phone: Start: 12-21-2021 Insertion of cathete r into peripheral vein [facility] Work Phone: Start: 12-21-2021 Measuring intake and output [facility] Work Phone: Start: 12-21-2021 Notification of physician [facility] Work Phone: Start: 12-21-2021 Oxygen therapy [facility] Work Phone: Start: 12-21-2021 Providing care accor ding to standard [facility] Work Phone: Start: 12-21-2021 Provision of activit y privileges [facility] Work Phone: Start: 12-21-2021 Referral to occupati onal therapist [facility] Work Phone: Start: 12-21-2021 Referral to service [facility] Work Phone: Start: 12-21-2021 Tobacco use cessatio n education [facility] Work Phone: Start: 12-21-2021 US scan of thyroid Thyroid [facility] Work Phone: Start: 12-21-2021 [facility] Work Phone: Start: 12-21-2021 End: 12-21-2021 Following clinical pathway protocol [facility] Work Phone: Start: 12-21-2021 Verification routine [facility] Work Phone: Start: 12-21-2021 Admission procedure [facility] Work Phone: Start: 12-21-2021 CT of head without contrast STROKE Brain/Head without Cont [facility] Work Phone: Start: 12-21-2021 CT Unspecified body region WO contrast [facility] Work Phone: Start: 12-21-2021 Oxygen therapy [facility] Work Phone: Start: 12-21-2021 End: 12-22-2021 [facility] Work Phone: Start: 11-21-2021 Influenza vaccination INFLUENZA (#1) [facility] Start: 09-24-2021 COVID-19 VACCINE (5 - Booster for Pfizer series) COVID-19 VACCINE (5 - Booster for Pfizer series) [facility] Start: 08-30-2021 End: 10-30-2021 PT panel - Platelet poor plasma by Coagulation assay [facility] Work Phone: Comment on above: Expected: 08/30/2021 , Expires: 10/30/2021 Start: 07-08-2021 End: 09-07-2021 Comprehensive metabolic 2000 panel - Serum or Plasma [facility] Work Phone: Comment on above: Expected: 07/08/2021 (Approximate), Expires: 09/07/2021 Start: 07-08-2021 End: 09-07-2021 LIPID PANEL BASIC [facility] Work Phone: Comment on above: Expected: 07/08/2021 (Approximate), Expires: 09/07/2021 Start: 04-27-2021 COVID-19 VACCINE (4 - Booster for Pfizer series) COVID-19 VACCINE (4 - Booster for Pfizer series) [facility] Start: 03-23-2021 ADVANCE DIRECTIVE DISCUSSION ADVANCE DIRECTIVE DISCUSSION [facility] Start: 03-23-2021 DEPRESSION ASSESSMENT DEPRESSION ASS ESSMENT [facility] Start: 02-21-2009 Pneumococcal Vaccine : 65+ (2 - PCV) Pneumococcal Vaccine: 65+ (2 - PCV) [facility] Start: 02-21-2009 PNEUMOCOCCAL: 65+ (2 - PCV) PNEUMOCOCCAL: 65+ (2 - PCV) [facility] Start: 02-23-2008 Urine microalbumin profile DTAP,TDAP,TD (1 - Tdap) [facility] Start: 1995 RSV Vaccine (1 - 1-d ose 60+ series) RSV Vaccine (1 - 1-dose 60+ series) [facility] Start: 08-12-1985 SHINGRIX VACCINE (1 of 2) VALDES GRIX VACCINE (1 of 2) [facility] Anion gap in Serum o r Plasma [facility] BUN/Creatinine ratio [facility] Calcium [Mass/volume ] in Serum or Plasma [facility] Carbon dioxide, tota l [Moles/volume] in Central venous blood [facility] Creatinine [Mass/vol ume] in Serum or Plasma [facility] Glucose [Mass/volume ] in Serum or Plasma [facility] Hemoglobin.gastroint estin al.lower [Presence] in Stool by Immunoassay FECAL OCCULT BLOOD TEST Lab Routine Abnormal CBC 06/04/2023 2:13 PM EDT [facility] Work Phone: INR in Blood by Coagulation assay [facility] Measurement of renal function [facility] End: 05-27-2025 MR Brain WO contrast MRI BRAIN W QUANT WO IVCON Radiology Routine Cognitive impairment, mild, so stated 1 Occurrences starting 04/27/2024 until 05/27/2025 [facility] Work Phone: Comment on above: 1 Occurrences starti ng 04/27/2024 until 05/27/2025 End: 05-27-2025 MR Unspecified body region 3D post processing MRI 3D BRAIN QUANT Radiology Routine Cognitive impairment, mild, so stated 1 Occurrences starting 04/27/2024 until 05/27/2025 [facility] Comment on above: 1 Occurrences starti ng 04/27/2024 until 05/27/2025 End: 03-17-2024 Mri brain brain stem w/o contrast material MRI BRAIN WO IVCON Radiology STAT Cerebral infarction, unspecified mechanism (HCC) 1 Occurrences starting 02/16/2023 until 03/17/2024 [facility] Work Phone: Comment on above: 1 Occurrences starti ng 02/16/2023 until 03/17/2024 Mri brain brain stem w/o contrast material MRI BRAIN WO IVCON Radiology STAT Cerebral infarction, unspecified mechanism (HCC) 02/17/2023 8:13 AM EST [facility] Work Phone: Patient Education ED Weakness (U ncertain Cause) [facility] Work Phone: Patient referral [facility] Work Phone: Potassium measurement [facility] Prothrombin time [facility] End: 09-13-2022 PT panel - Platelet poor plasma by Coagulation assay PROTHROMBIN TIME/PT Lab Routine alf current use of anticoagulant Encounter for monitoring Coumadin therapy Once per week for 99 Occurrences starting 09/13/2021 until 09/13/2022 [facility] Work Phone: Comment on above: Once per week for 99 Occurrences starting 09/13/2021 until 09/13/2022 PT panel - Platelet poor plasma by Coagulation assay PROTHROMBIN TIME/PT 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 Encounter for monitoring Coumadin therapy 09/13/2021 8:42 AM EDT [facility] Work Phone: End: 01-16-2024 PT panel - Platelet poor plasma by Coagulation assay PROTHROMBIN TIME/PT 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 Paroxysmal atrial fibrillation (HCC) Once per week for 99 Occurrences starting 01/16/2023 until 01/16/2024 [facility] Work Phone: Comment on above: Once per week for 99 Occurrences starting 01/16/2023 until 01/16/2024 End: 12-23-2024 PT panel - Platelet poor plasma by Coagulation assay PROTHROMBIN TIME Lab STAT 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 24 Occurrences starting 12/24/2023 until 12/23/2024 [facility] Work Phone: Comment on above: 24 Occurrences start ing 12/24/2023 until 12/23/2024 Serum chloride measurement [facility] Sodium measurement [facility] Urea nitrogen [Mass/volume] in Serum or Plasma [facility] End: 01-25-2023 Us soft tissue head & neck real time imge docm US THYROID/PARATHYROID Radiology Routine Thyroid nodule 1 Occurrences starting 12/26/2021 until 01/25/2023 [facility] Work Phone: Comment on above: 1 Occurrences starti ng 12/26/2021 until 01/25/2023 [facility] Immunizations Immunization Date Immunization Notes Care Provider Fa sam 12-03-2023 influenza virus vacc ine, unspecified formulation Stas Mora MD Work Phone: [facility] 01-10-2023 influenza (HD-IIV4) vaccine, age 65+ yr, high dose, quadrivalent, PF (FLUZONE HIGH-DOSE) Coretta Yeimi [facility] 01-10-2023 influenza virus vacc ine, unspecified formulation Coretta Yeimi [facility] 12-26-2021 influenza, high-dose , quadrivalent vaccine (FLUZONE HIGH DOSE QUADRIVALENT) Stas Mora MD Work Phone: [facility] 12-26-2021 influenza virus vacc ine, unspecified formulation Senia Cross [facility] 02-27-2021 tetanus toxoid, redu natividad diphtheria toxoid, and acellular pertussis vaccine, adsorbed Stas Mora MD Work Phone: [facility] 02-27-2021 zoster vaccine recombinant Stas Mora MD Work Phone: [facility] 12-25-2020 Covid (Pfizer) Dr. Stas gonzales Work Phone: [facility] 12-10-2020 influenza (HD-IIV4) vaccine, age 65+ yr, high dose, quadrivalent, PF (FLUZONE HIGH-DOSE) Coretta [facility] 12-10-2020 influenza, high dose seasonal, preservative-free Stas Mora MD Work Phone: [facility] 09-17-2020 zoster vaccine recombinant Stas Mora MD Work Phone: [facility] 05-09-2020 Covid (Pfizer) Dr. Stas gonzales Work Phone: [facility] 04-18-2020 Covid (Pfizer) Dr. Stas gonzales Work Phone: [facility] 12-24-2016 influenza, high dose seasonal, preservative-free Stas Mora MD Work Phone: [facility] 12-22-2015 Influenza virus vaccine [facility] 12-22-2015 influenza, seasonal, injectable, preservative free Stas Mora MD Work Phone: [facility] Work Phone: 01-30-2014 influenza, high dose seasonal, preservative-free Stas Mora MD Work Phone: [facility] Work Phone: 01-24-2013 influenza virus vacc ine, unspecified formulation Stas Mora MD Work Phone: [facility] 02-22-2008 pneumococcal polysaccharide vaccine, 23 valent Stas Mora MD Work Phone: [facility] Work Phone: 02-22-2008 tetanus and diphther ia toxoids, adsorbed, preservative free, for adult use (2 Lf of tetanus toxoid and 2 Lf of diphtheria toxoid) Stas Mora MD Work Phone: [facility] Work Phone: Payers Date Payer Category Payer Self-pay [id number] 2022 Unknown [id number] 2016 Medicare [employer] [place] [id number] 2016-Present [phone] [address] [place] [address] O [id number] 2016 Medicare [employer] [place] [id number] 2016-Present [phone] [address] [place] [address] O [id number] 2016 Medicare (Managed Care) [place] [id number] 2016 Medicare [id number] 1935 Unknown [id number] 2.16840.1.733527.3.579. 2.627 1935 Unknown [id number] 2.840.1.150536.3.579. 2.627 Unknown VA AUTH REQUIR ED SEE NOTE [id number] Unknown [place] AUTH REQUIR ED SEE NOTE . [id number] Unknown [id number] 2.16840.1.387552.3.579. 2.462 Unknown [id number] 2.16840.1.610979.3.579. 2.462 Unknown [id number] 2.16840.1.507739.3.579. 2.462 Unknown [id number] 2.16840.1.785708.3.579. 2.462 Unknown [id number] 2.16840.1.252261.3.579. 2.462 Unknown [id number] 2.16840.1.597692.3.579. 2.462 Unknown [id number] 2.16840.1.554676.3.579. 2.462 Unknown [id number] 2.16840.1.262740.3.579. 2.462 Unknown [id number] 2.16840.1.498149.3.579. 2.462 Unknown [id number] 2.16.840.1.589117.3.579. 2.462 Unknown [id number] 2.16.840.1.535143.3.579. 2.462 Unknown [id number] 2.16.840.1.176430.3.579. 2.462 Unknown [id number] 2.16.840.1.255013.3.579. 2.462 Unknown [id number] 2.16840.1.889469.3.579. 2.462 Unknown [id number] .840.1.820183.3.579. 2.462 Unknown [id number] 2.840.1.224408.3.579. 2.462 Unknown [id number] 2.840.1.620305.3.579. 2.462 Unknown [id number] 2.840.1.497523.3.579. 2.462 Unknown [id number] 2.840.1.640988.3.579. 2.462 Unknown [id number] 2.840.1.643714.3.579. 2.462 Unknown [id number] 2.840.1.334418.3.579. 2.462 Unknown [id number] 2.840.1.390786.3.579. 2.462 Unknown [id number] .840.1.926651.3.579. 2.462 Unknown [id number] .840.1.426411.3.579. 2.462 Unknown [id number] 2.840.1.613969.3.579. 2.462 Unknown [id number] 2.16840.1.178794.3.579. 2.462 Unknown [id number] 2.16840.1.706107.3.579. 2.462 Unknown [id number] 2.840.1.137186.3.579. 2.462 Unknown [id number] 2.16.840.1.618487.3.579. 2.462 Unknown [id number] 2.16.840.1.593880.3.579. 2.462 Unknown [id number] 2.16.840.1.670961.3.579. 2.462 Unknown [id number] 2.16.840.1.873577.3.579. 2.462 Unknown [id number] 2.16.840.1.541583.3.579. 2.462 Unknown [id number] 2.16.840.1.546832.3.579. 2.462 Unknown [id number] 2.16.840.1.135526.3.579. 2.462 Unknown [id number] 2.16.840.1.145259.3.579. 2.462 Unknown [id number] 2.16.840.1.333865.3.579. 2.462 Unknown [id number] 2.16.840.1.813402.3.579. 2.462 Unknown [id number] 2.16.840.1.919918.3.579. 2.462 Unknown [id number] 2.16.840.1.113614.3.579. 2.462 Social History Date Type Detail Facility Start: 05-04-2017 End: 01-06-2025 Tobacco smoking status NHIS Ex-smoker [facility] Start: 02-15-2021 End: 07-28-2024 Alcohol intake Current non-drinker of alcohol (finding) [facility] Start: 08-26-2020 End: 08-29-2021 History SDOH Alcohol Frequency 2 [facility] Start: 08-26-2020 End: 08-29-2021 History SDOH Alcohol Std Drinks 1 [facility] Start: 08-26-2020 End: 08-29-2021 History SDOH Social Connections [facility] 3 [facility] Start: 08-26-2020 End: 08-29-2021 History SDOH Social Connections Living 5 [facility] Start: 08-26-2020 History SDOH Physical Activity MPS 6 [facility] Start: 08-26-2020 Education 12 [facility] Start: 1935 Sex Assigned At Male [facility] Start: 02-11-2020 End: 12-26-2021 Exposure to SARS-CoV-2 (event) Not sure [facility] History of tobacco use Current smoker [facility] Start: 05-04-2017 End: 12-26-2021 Tobacco use and exposure Smokeless tobacco non-user [facility] Start: 12-21-2021 End: 02-10-2023 Tobacco smoking status NHIS Unknown if ever smoked [facility] Start: 12-22-2021 Non-smoker [facility] Start: 12-26-2021 Tobacco Comment 30 yaers ago [facility] Start: 02-28-2020 End: 08-29-2021 History of Social function [facility] Start: 02-28-2020 End: 08-29-2021 Social connection and isolation panel [facility] Do you belong to any clubs or organizations such as druze groups, unions, fraternal or athletic groups, or school groups? No [facility] Are you now , , , , never or living with a partner? [facility] How often to you hav e a drink containing alcohol? Monthly or less [facility] How many standard dr inks containing alcohol do you have on a typical day? 1 or 2 [facility] How often do you hav e 6 or more drinks on 1 occasion? Never [facility] How hard is it for y ou to pay for the very basics like food, housing, medical care, and heating Not hard at all [facility] Do you feel stress - tense, restless, nervous, or anxious, or unable to sleep at night because your mind is troubled all the time - these days [OSQ] Not at all [facility] (I/We) worried velvet er (my/our) food would run out before (I/we) got money to buy more. Never true [facility] Start: 08-26-2020 Gender identity Identifies as male gender (finding) [facility] Start: 08-26-2020 Sexual orientation Heterosexual (finding) [facility] Sex Assigned At Sex [facility] Are you now , , , , never or living with a partner? [facility] How often to you hav e a drink containing alcohol? 2-4 times a month [facility] Goals Date Patient Goal Desired Activity /State Functional Status Date Assessment Result Facility 09-06-2024 Functional status Ambulates [facility] Work Phone: 07-26-2024 Total score [AUDIT-C] 1 07/27/19 6:26 PM EDT User, Olena [facility] 07-26-2024 Within the last year , have you been humiliated or emotionally abused in other ways by your partner or ex-partner? No 07/26/2024 6:26 PM EDT [email or web address] 07-26-2024 Within the last year , have you been afraid of your partner or ex-partner? No 07/26/2024 6:26 PM EDT [facility], [email or web address] No [facility] 07-26-2024 Within the last year , have you been raped or forced to have any kind of sexual activity by your partner or ex-partner? No 07/26/2024 6:26 PM EDT [facility], [email or web address] No [facility] 07-26-2024 Within the last year , have you been kicked, hit, slapped, or otherwise physically hurt by your partner or ex-partner? No 07/26/2024 6:26 PM EDT User, [email or web address] No [facility] 07-26-2024 How often to you hav e a drink containing alcohol? Monthly or less 07/26/2024 6:26 PM EDT User, [email or web address] Monthly or less [facility] 07-26-[address] inks containing alcohol do you have on a typical day? 1 or 2 07/26/2024 6:26 PM EDT User, [email or web address] 1 or 2 [facility] 07-26-2024 How often do you hav e 6 or more drinks on 1 occasion? Never 07/26/2024 6:26 PM EDT User, [email or web address] Never [facility] 11-17-2022 Functional Status Up ad tara Samira [place] 11-17-2022 Functional Status Identified as high risk, Fall ID band on, Room located near nursing station [facility] 12-22-2021 Functional status Ambulates;Chair [facility] Work Phone: 07-02-2016 Are you deaf, or do you have serious difficulty hearing No 07/02/2016 2:52 PM EDT Anita Zhang, DO No [facility] Work Phone: 07-02-2016 Are you blind, or do you have serious difficulty seeing, even when wearing glasses No 07/02/2016 2:52 PM EDT Anita Zhang, DO No [facility] 07-02-2016 Do you have serious difficulty walking or climbing stairs No 07/02/2016 2:52 PM EDT Anita Zhang, DO No [facility] 07-02-2016 Do you have difficul ty dressing or bathing No 07/02/2016 2:52 PM EDT Anita Zhnag, DO No [facility] 07-02-2016 Because of a physica l, mental, or emotional condition, do you have difficulty doing errands alone such as visiting a physician's office or shopping No 07/02/2016 2:52 PM EDT Anita Zhang, DO No [facility] Mental Status Date Assessment Result Facility 09-06-2024 Cognitive function Voice/Name [facility] Work Phone: 09-05-2024 Cognitive function Appropriate;Cooperativ e [facility] Work Phone: 02-10-2023 Cognitive function Level Of Cons ciousness Awake;Alert;Appropriate;Fol lows Commands [facility] Work Phone: 11-17-2022 Mental Status Orientation Oriented x 4 [facility] 11-17-2022 Mental Status [facility] 12-22-2021 Cognitive function Voice/Name [facility] Work Phone: 12-21-2021 Cognitive function Voice/Name [facility] Work Phone: 07-02-2016 Because of a physica l, mental, or emotional condition, do you have serious difficulty concentrating, remembering, or making decisions No 07/02/2016 2:52 PM EDT Anita Zhang, DO No [facility] Clinical Notes 03-12-2020 to 09-21-2024 Telephone Encounter - Petty Vargas - 09/21/2024 9:21 AM EDTTelephone Encounter - Petty Vargas - 09/21/2024 9:21 AM EDT Note Date & Type Note Facility 09-21-2024 Telephone encounter Note Form atting of this note might be different from the original. [facility]. Maria Guadalupe states that he has been in there for two weeks. Please advise [facility] 09-21-2024 Miscellaneous Notes Formattin g of this note might be different from the original. [facility] healthy living for rehabilitation. Maria Guadalupe states that he has been in there for two weeks. Please advise documented in this encounter [facility] 09-06-2024 Consult note [facility] 09-06-2024 Consult note Note Date/Time September 06, 2024 4:37pm [facility] Medical Records Department [address] [place] [address] Counseling Note - Pharmacy 09/06/24 1143 MR#: [id number] Acct: [id number] Name: ROBY FLORES Radha Rep #:[id number] : 1935 89 From: Isabelle Summers PCP: Dr. Stas Mora MD Status:AD M IN Y Location: [place] [address] Pharmacy [place] Med Reconciliation Pharmacy Service has performed discharge [...] Signature (if applicable): Date CC: ~ Signed [facility] Work Phone: 1(491) 613-500306-17-2025 Discharge summary Author Navid Dominguez [facility] Note Date/Time September 06, 2024 11:[address] [place] [address] [facility] System Medical Records Department [address] [place] [address] Discharge Summary 09/06/24 1109 MR#: [id number] Acct: [id number] Name: ROBY FLORES Rep #:[id number] : 1935 89 From: Navid Trejo PCP: Dr. Stas Mora MD Status:[facility] [place] Location: [place] [address] Providers Date of Admission: 09/02/24 Date of [...] [facility] the [facility] 09/06: INR 2.4. Hold warfarin [...] The daughter is the healthcare power of assistant attorney general. #History of dementia: On rivastigmine [...] (Auto) 66.8, Lymph % (Auto) 16.4 L, [place] % (Auto) 9.1, Eos % (Auto) 6.3 [...] in before D/C Order can be placed): Custodial Facility Charges/Coding Visit Charges Inpatient E&M: 56521 Disch Hosp >30min 09/06/24 1114 <Electronically signed by Navid Dominguez MD> Cosigner Signature (if applicable): CC: Dr. Stas Mora MD; Dr. Navid Dominguez MD~ Signed [facility] Work Phone: 1(225) 105-256606-17-2025 Discharge summary Author Navid Dominguez [facility] Note Date/Time September 06, 2024 11:0 9am [facility] Medical Records Department [address] [place] [address] Transfer to [facility] MR#: [id number] Acct: [id number] Name: ROBY FLORES Rep #:[id number] : 1935 89 From: Navid Trejo PCP: Dr. Stas Mora MD Status:AD M IN Certification of patient admission REQUIRED AT TIME OF ADMISSION. I CERTIFY THAT POST-HOSPITAL ECF SERVICES ARE REQUIRED TO BE GIVEN ON AN IN-PATIENT BASIS BECAUSE OF THE ABOVE NAMED PATIENT'S NEED FOR FPC CARE ON A CONTINUING BASIS FOR THE CONDITION(S) FOR WHICH HE/SHE WAS RECEIVING IN-PATIENT HOSPITAL SERVICES PRIOR TO HIS/HER TRANSFER TO THE [facility]. 09/06/24 1109<Electronically signed by Navid Dominguez MD> [...] explained to the [facility] and [facility] # Fever * Patient developed [...] The daughter is the healthcare power of assistant attorney general. #History of dementia: On rivastigmine [...] liberalized regular diet with consistency/texture as per IMPORT/EXPORT FREIGHT FORWARDER. Will continue 120mL ensure plus HP 4 [...] in before D/C Order can be placed): Custodial Facility 09/06/24 1109 <Electronically signed by Navid Dominguez MD> Cosigner Signature (if applicable): CC: Dr. Stas Mora MD; Dr. Kathy Wells MD ~ [facility] Work Phone: 1(176) 368-980906-17-2025 Discharge summary [facility] Medical Records Department [address] [place] [address] Discharge Summary 09/06/24 1109 MR#: [id number] Acct: [id number] Name: ROBY FLORES Rep #:[id number] : 1935 89 From: Navid Trejo PCP: Dr. Stas Mora MD Status:[facility] [place] Location: [address] Providers Date of Admission: 09/02/24 Date [...] explained to the [facility] and [facility] 09/06: INR 2.4. Hold warfarin [...] The daughter is the healthcare power of assistant attorney general. #History of dementia: On rivastigmine [...] (Auto) 66.8, Lymph % (Auto) 16.4 L, [place] % (Auto) 9.1, Eos % (Auto) 6.3 [...] in before D/C Order can be placed): Custodial Facility Charges/Coding Visit Charges Inpatient E&M: 75416 Disch Hosp >30min 09/06/24 1114 Cosigner Signature (if applicable): CC: Dr. Stas Mora MD; Dr. Navid Dominguez MD~ Signed [facility]06-17-2025 Discharge summary [facility] Medical Records Department [address] [place] [address] Transfer to [facility] MR#: [id number] Acct: [id number] Name: ROBY FLORES Rep #:[id number] : 1935 89 From: Navid Trejo PCP: Dr. Stas Mora MD Status:AD M IN Certification of patient admission REQUIRED AT TIME OF ADMISSION. I CERTIFY THAT POST-HOSPITAL ECF SERVICES ARE REQUIRED TO BE GIVEN ON AN IN-PATIENT BASIS BECAUSE OF THE ABOVE NAMED PATIENT'S NEED FOR FPC CARE ON A CONTINUING BASIS FOR THE [...] The daughter is the healthcare power of assistant attorney general. #History of dementia: On rivastigmine [...] liberalized regular diet with consistency/texture as per IMPORT/EXPORT [employer]REIGHT FORWARDER. Will continue 120mL ensure plus HP 4 [...] in before D/C Order can be placed): Custodial Facility 09/06/24 1109 Cosigner Signature (if applicable): CC: Dr. Stas Mora MD; Dr. Kathy Wells MD ~ [facility]06-17-2025 [facility] Medical Records Department [address] [place] [address] Discharge Summary 09/06/24 1109 MR#: [id number] Acct: [id number] Name: ROBY FLORES Rep #: [id number] : 1935 89 From: Navid Dominguez MD PCP: Dr. Stas Mora MD Status:ADM IN [facility] Prov[facility] Date of Admission: 09/02/24 Date of [...] The daughter is the healthcare power of assistant attorney general. #History of dementia: On rivastigmine [...] / Lab / Microbiol (more content not included)...[facility] 09-05-2024 Progress note Author Navid Dominguez [facility] Note Date/Time September 05, 2024 4:15 pm [facility] Medical Records Department [address] [place] [address] Progress Note - Hospitalist 09/05/24 1608 MR#: [id number] Acct: [id number] Name: ROBY FLORES Rep #:[id number] : 1935 89 From: Navid Trejo PCP: Dr. Stas Mora MD Status:AD M IN Location: [place] [address] Reason for Visit Reason for Visit: Diagnoses [...] Clarity Clear, Urine pH 7.0, Ur Specific [place] 1.005, Urine Protein 15 H, Urine Glucose [...] 77.2 H, Lymph % (Auto) 9.8 L, [place] % (Auto) 7.9, Eos % (Auto) 4.0, [...] explained to the patient and [facility] # Fever * Patient developed [...] The daughter is the healthcare power of assistant attorney general. #History of dementia: On rivastigmine #Dyslipidemia: On statin #Benign essential hypertension: On lisinopril. DVT prophylaxis: * Resume Coumadin today. INR 1.8. Daughter still thinking about that she wants him to continue otherwise. Code status: DNRCCA no intubation * Disposition: Awaiting placement. PT OT on board. Charges/Coding Visit Charges Inpatient E&M: 01782 Subs Hosp L2 09/05/24 1615 <Electronically signed by Navid Dominguez MD> Cosigner Signature (if applicable): CC: ~ Signed [facility] Work Phone: 1(624) 115-575906-16-2025 Progress note [facility] Medical Records Department [address] [place] [address] Progress Note - Hospitalist 09/05/24 1605 MR#: [id number] Acct: [id number] Name: ROBY FLROES Radha Rep #:[id number] : 1935 89 From: Navid Trejo PCP: Dr. Stas Mora MD Status:AD M IN Location: [facility] [id number] Reason for Visit Reason for Visit: Diagnoses [...] Clarity Clear, Urine pH 7.0, Ur Specific [place] 1.005, Urine Protein 15 H, Urine Glucose [...] 77.2 H, Lymph % (Auto) 9.8 L, [place] % (Auto) 7.9, Eos % (Auto) 4.0, [...] explained to the patient and [facility] # Fever * Patient developed [...] The daughter is the healthcare power of assistant attorney general. #History of dementia: On rivastigmine #Dyslipidemia: On statin #Benign essential hypertension: On lisinopril. DVT prophylaxis: * Resume Coumadin today. INR 1.8. Daughter still thinking about that she wants him to continue otherwise. Code status: DNRCCA no intubation * Disposition: Awaiting placement. PT OT on board. Charges/Coding Visit Charges Inpatient E&M: 57042 Subs Hosp L2 09/05/24 1611 Cosigner Signature (if applicable): CC: ~ Signed [facility]06-15-2025 Progress note Author Kathy Wells [facility] Note Date/Time September 04, 2024 3:37 pm [facility] Medical Records Department [address] [place] [address] Progress Note 09/04/24 1412 MR#: [id number] Acct: [id number] Name: ROBY FLORES Rep #:[id number] : 1935 89 From: Kathy Wells MD PCP: Dr. Stas Mora MD Status:AD M [place] Location: [place] HY076-3 Subjective Subjective Patient seen and examined. He [...] 78.0 H, Lymph % (Auto) 7.8 L, [place] % (Auto) 7.7, Eos % (Auto) 5.3 [...] The daughter is the healthcare power of assistant attorney general. * In light of patient's [...] on board. Charges/Coding Visit Charges Inpatient E&M: 72249 Subs Hosp L2 09/04/24 0547 <Electronically signed by Kathy Wells MD> Kathy Wells MD Cosigner Signature (if applicable): CC: ~ Signed [facility] Work Phone: 1(892) 148-397806-15-2025 Progress note [facility] Medical Records Department [address] [place] [address] Progress Note 09/04/24 1412 MR#: [id number] Acct: [id number] Name: ROBY FLORES Rep #:[id number] : 1935 89 From: Kathy Wells MD PCP: Dr. Stas Mora MD Status:AD M [place] Location: [place] PA301-1 Subjective Subjective Patient seen and examined. He [...] 78.0 H, Lymph % (Auto) 7.8 L, [place] % (Auto) 7.7, Eos % (Auto) 5.3 [...] The daughter is the healthcare power of assistant attorney general. * In light of patient's [...] on board. Charges/Coding Visit Charges Inpatient E&M: 64668 [facility] Hosp L2 09/04/24 5376 Kathy Wells MD Cosigner Signature (if applicable): CC: ~ Signed [facility]06-14-2025 Progress note Author Kathy Wells [facility] [facility] Note Date/Time September 03, 2024 6:29 pm [facility] Medical Records Department [address] [place] [address] Progress Note 09/03/24 1135 MR#: [id number] Acct: [id number] Name: ROBY FLORES Rep #:[id number] : 1935 89 From: Kathy Wells MD PCP: Dr. Stas Mora MD Status:AD M [place] Location: [place]3 [id number] Subjective Subjective Patient seen and examined. He [...] 83.4 H, Lymph % (Auto) 6.7 L, [place] % (Auto) 6.0, Eos % (Auto) 2.8, [...] The daughter is the healthcare power of assistant attorney general. * In light of patient's [...] on board. Charges/Coding Visit Charges Inpatient E&M: 52172 Subs Hosp L2 09/03/24 0283 <Electronically signed by Kathy Wells MD> Kathy Wells MD Cosigner Signature (if applicable): CC: ~ Signed [facility] Work Phone: 1(474) 814-157806-14-2025 Progress note [facility] Medical Records Department [address] [place] [address] Progress Note 09/03/24 1135 MR#: [id number] Acct: [id number] Name: ROBY FLORES Rep #:[id number] : 1935 89 From: Kathy Wells MD PCP: Dr. Stas Mora MD Status:AD M IN Location: MS3 VT090-6 Subjective Subjective Patient seen and examined. He [...] 83.4 H, Lymph % (Auto) 6.7 L, [place] % (Auto) 6.0, Eos % (Auto) 2.8, [...] The daughter is the healthcare power of assistant attorney general. * In light of patient's [...] on board. Charges/Coding Visit Charges Inpatient E&M: 67903 Subs Hosp L2 09/03/24 5977 Kathy Wells MD Cosigner Signature (if applicable): CC: ~ Signed [facility]06-14-2025 Consult note Author Spike De La Cruz [facility] Note Date/Time September 03, 2024 3:49 pm [facility] Medical Records Department [address] [place] [address] Pharmacokinetic/Renal -Consult 09/03/24 1548 MR#: [id number] Acct: [id number] Name: ROBY FLORES Rep #:[id number] : 1935 89 From: Spike Maynard [facility] PCP: Dr. Stas Mora MD Status:AD M IN [place] [facility] [place]776-1 Consult Antibiotic Management Pharmacy has been consulted [...] Labs: Trough: Vancomycin (09/04/24 at 2130) 09/03/24 2694 <Electronically signed by Spike Angelo [facility]> Date _ Spike De La Cruz [facility] Cosigner Signature (if applicable): Date CC: ~ Signed [facility] Work Phone: 1(676) 864-689306-14-2025 Consult note [facility] Medical Records Department [address] [place] [address] Pharmacokinetic/Renal -Consult 09/03/24 1548 MR#: [id number] Acct: [id number] Name: ROBY FLORES Rep #:[id number] : 1935 89 From: Spike Maynard [facility] PCP: Dr. Stas Mora MD Status:AD M IN Location: [place] [address] Consult Antibiotic Management Pharmacy has been consulted [...] at 2130) 09/03/24 1549 rowdying [facility]> Date _ Spike De La Cruz [facility] Cosigner Signature (if applicable): Date CC: ~ Signed [facility]06-13-2025 Progress note Author Kathyrachel Wells [facility] Note Date/Time September 02, 2024 6:45 pm [facility] Medical Records Department [address] [facility] [place] [address] Progress Note 09/02/24 1404 MR#: [id number] Acct: [id number] Name: ROBY FLORES Rep #:[id number] : 1935 89 From: Kathy Wells MD PCP: Dr. Stas Mora MD Status:AD M IN Location: [place] [address]-1 Subjective Subjective Patient seen and examined. He [...] (Auto) 87.9 H, Lymph %(Auto) 3.8 L, [place] % (Auto) 4.8, Eos % (Auto) 2.2, [...] intracranial bleed. * [facility] Hydrate gently with IV fluids. [...] The daughter is the healthcare power of assistant attorney general. * In light of patient's [...] intubation * Charges/Coding Visit Charges Inpatient E&M: 97608 Subs Hosp L2 09/02/24 0774 <Electronically signed by Kathy Wells MD> Kathy Wells MD Cosigner Signature (if applicable): CC: ~ Signed [facility] Work Phone: 1(180) 627-429406-13-2025 Progress note [facility] Medical Records Department [address] [place] [address] Progress Note 09/02/24 1404 MR#: [id number] Acct: [id number] Name: ROBY FLORES Rep #:[id number] : 1935 89 From: Kathy Wells MD PCP: Dr. Stas Mora MD Status:AD M [place] Location: [place]3 ZW585-6 Subjective Subjective Patient seen and examined. He [...] (Auto) 87.9 H, Lymph %(Auto) 3.8 L, [place] % (Auto) 4.8, Eos % (Auto) 2.2, [...] intracranial bleed. * [facility] Hydrate gently with IV fluids. [...] The daughter is the healthcare power of assistant attorney general. * In light of patient's [...] intubation * Charges/Coding Visit Charges Inpatient E&M: 68233 Subs Hosp L2 09/02/24 184 Kathy Wells MD Cosigner Signature (if applicable): CC: ~ Signed [facility]06-13-2025 Evaluation note* Diagnosis Onset Date Resolution Status Admit Date Adult failure to thrive acute [facility] 2024 12:49pm Chronic anticoagulation acute [facility] 2024 12:49pm Contusion of hip acute August 12:49pm Fall acute September 02 12:49pm History of atrial fibrillation acute September 02, 2024 12:49pm History of dementia acute September 02, 2024 12:49pm History of TIAs acute August 12:49pm Unable to ambulate acute August 212024 12:49pm [facility] Work Phone: [phone]) 960-120806-13-2025 Evaluation note* Diagnosis Onset Date Resolution Status Admit Date Chronic anticoagulation acute [facility] 2024 12:49pm Contusion of hip acute August 12:49pm Fall acute September 02 12:49pm History of atrial fibrillation acute September 02, 2024 12:49pm History of TIAs acute August 12:49pm Unable to ambulate acute August 212024 12:49pm Adult failure to thrive inactive J 2024 12:49pm History of dementia inactive September 02, 2024 12:49pm [facility] Work Phone: [phone]) 637-318506-12-2025 Consult note Author Zachary Lubin [facility] Note Date/Time September 01, 2024 9:15 pm [facility] Medical Records Department [address] [place] [address] Pharmacokinetic/Renal -Consult 09/01/242113 MR#: [id number] Acct: [id number] Name: ROBY FLORES Rep #:[id number] : 1935 89 From: Zachary Serrano od PCP: Dr. Stas Mora MD Status:ELIAS Saab Location: [place] [address] Consult Antibiotic Management Pharmacy has been consulted [...] (if applicable): Date _ CC: ~ Signed [facility] Work Phone: 1([phone]) 284-639806-12-2025 Progress note Author Marta Black [facility] Note Date/Time September 01, 2024 7:55 pm [facility] Medical Records Department [address] [place] [address] Progress Note - Hospitalist 09/01/241952 MR#: [id number] Acct: [id number] Name: ROBY FLORES Rep #:[id number] : 1935 89 From: Marta Black DO PCP: Dr. Stas Mora MD Status:AD M [facility] Location: [place] [address] Hospitalist Note Called regarding Mr. Flores having [...] Cosigner Signature (if applicable): CC: ~ Signed [facility] Work Phone: 1(471) 839-272206-12-2025 Consult note [facility] Medical Records Department [address] [place] [address] Pharmacokinetic/Renal -Consult 09/01/242113 MR#: [id number] Acct: [id number] Name: ROBY FLORES Rep #:[id number] : 1935 89 From: Zachary Serarno od PCP: Dr. Stas Mora MD Status:ELIAS M GERMAN Y Location: [place] [address] Consult Antibiotic Management Pharmacy has been consulted [...] (if applicable): Date _ CC: ~ Signed [facility]06-12-2025 History and physical note Author [facility] Note Date/Time September 01, 2024 6:04 pm [facility] Medical Records Department [address] [place] [address] H&P Exam - Hospitalist 09/01/24 1018 MR#: [id number] Acct: [id number] Name: ROBY FLORES Rep #:[id number] : 1935 89 From: Kathy Wells MD PCP: Dr. Stas Mora MD Status:AD M [facility] Location: [facility] NG871-8 HPI - General General Date of Admission: [...] in the ED were BP of 180/89, DC of 87, RR of 18 and temp [...] debility and weakness due to mechanical fall. [facility] Medical History Chronic anticoagulation TIA (transient [...] 87.5 H, Lymph % (Auto) 4.8 L, [place] % (Auto) 5.7, Eos % (Auto) 1.2, [...] Clarity Clear, Urine pH 8.0, Ur Specific [place] 1.010, Urine Protein 15 H, Urine Glucose [...] No fracture or dislocation present. Reading Location: [facility]-[address] 09/01/24 09:05 IMPRESSION: Cerebral atrophy. Mucosal thickening of the ethmoid sinuses as well as opacification of the left maxillary sinus. Reading Location: [facility]-1 Chest X-Ray 09/01/24 09:25 IMPRESSION: No acute abnormality is seen. Reading Location: [facility]-1 Assessment & Plan Assessment/Plan (1) Adult [...] The daughter is the healthcare power of assistant attorney general. * In light of patient's [...] be DNR CCA no intubation. * Total cotp-rz-esde time 16 minutes. Charges/Coding Visit Charges Inpatient E&M: 41231 Init Hosp L3 Procedures Hospitalists Procedures: 31979 Advncd Care Plan 30 Min 09/01/24 1804 <Electronically signed by Kathy Wells MD> Cosigner Signature (if applicable): CC: Dr. Stas Mora MD; Dr. Kathy Wells MD~ Signed [facility] Work Phone: [phone]) 671-683906-12-2025 Progress note [facility] Medical Records Department [address] [place] [address] Progress Note - Hospitalist 09/01/241952 MR#: [id number] Acct: [id number] Name: ROBY FLORES E Rep #:[id number] : 1935 89 From: Marta Black DO PCP: Dr. Stas Mora MD Status:AD M [facility] Location: [place]3 OH424-1 Hospitalist Note Called regarding Mr. Flores having [...] Cosigner Signature (if applicable): CC: ~ Signed [facility]06-12-2025 History and physical note [facility] Medical Records Department [address] [place] [address] H&P Exam - Hospitalist 09/01/24 1018 MR#: [id number] Acct: [id number] Name: ROBY FLORES Rep #:[id number] : 1935 89 From: Kathy Wells MD PCP: Dr. Stas Mora MD Status:AD M [facility] Location: [place] UH337-4 HPI - General General Date of Admission: [...] in the ED were BP of 180/89, DC of 87, RR of 18 and temp [...] debility and weakness due to mechanical fall. [facility] Medical History Chronic anticoagulation TIA (transient [...] 87.5 H, Lymph % (Auto) 4.8 L, [place] % (Auto) 5.7, Eos % (Auto) 1.2, [...] Clarity Clear, Urine pH 8.0, Ur Specific [place] 1.010, Urine Protein 15 H, Urine Glucose [...] No fracture or dislocation present. Reading Location: [facility]--[address] 09/01/24 09:05 IMPRESSION: Cerebral atrophy. Mucosal thickening of the ethmoid sinuses as well as opacification of the left maxillary sinus. Reading Location: [facility]--1 Chest X-Ray 09/01/24 09:25 IMPRESSION: No acute abnormality is seen. Reading Location: [facility]-IR-1 Assessment & Plan Assessment/Plan (1) Adult [...] intracranial bleed. * Admit to [facility]. Hydrate gently with IV fluids. [...] The daughter is the healthcare power of assistant attorney general. * In light of patient's [...] be DNR CCA no intubation. * Total dnhu-lz-pciq time 16 minutes. Charges/Coding Visit Charges Inpatient E&M: 38916 Init Hosp L3 Procedures Hospitalists Procedures: 59467 Advncd Care Plan 30 Min 09/01/24 1804 Cosigner Signature (if applicable): CC: Dr. Stas Mora MD; Dr. Kathy Wells MD~ Signed [facility]06-12-2025 Telephone encounter Note* Telephone Encounter - Haydee Oliveros LPN - 09/01/2024 2:49 PM EDT Eight19 message sent [facility]06-12-2025 Miscellaneous Notes* Telephone Encounter - Haydee Oliveros [...] ~$30. If he switches the prescription to [facility], he can get a 1 mo supply for ~$20. See coupons below. Rivastigmine patches are also available via GoodRx. It appears the cheapest option is through [facility], in which he can get 30 patches for $52. Coupon also below. Sending to PCP to review and provide patient with coupon card information. Russell Aguayo PharmD, [facility] Primary Care Clinical Pharmacist Memantine coupon at [facility] Memantine coupon at [facility] Rivastigmine patches coupon at [facility] documented [facility] Telephone encounter Note * Telephone Encounter - Luciana Cisneros MD - 09/01/2024 1:26 PM EDT Thanks Russell, Staff please let patient know what the pharmacist as opined on. Regards, Luciana Cisneros MD [facility]06-12-2025 Discharge summary Author Inderjit Gillespie [facility] Note Date/Time September 01, 2024 10:2 5am [facility] Medical Records Department [address] [place] [address] Emergency Department Summary 09/01/24 MR#: [id number] Acct: [id number] Name: ROBY FLORES Rep #:[id number] : [...] shoulders elbows and wrist. He has normal clinical investigator strength. Neurologically he is awake alert. Answering [...] 87.5 H Lymph % (Auto) 4.8 L [place] % (Auto) 5.7 Eos % (Auto) 1.2 [...] Clarity Clear Urine pH 8.0 Ur Specific [place] 1.010 Urine Protein 15 H Urine Glucose [...] No fracture or dislocation present. Reading Location: [facility]-[address] 09/01/24 09:05 IMPRESSION: Cerebral atrophy. Mucosal thickening of the ethmoid sinuses as well as opacification of the left maxillary sinus. Reading Location: [facility]-1 Chest X-Ray 09/01/24 09:25 IMPRESSION: No acute abnormality is seen. Reading Location: [facility]--1 Chest x-ray, 2 views, AP and [...] to thrive Disposition Disposition: Acute Care Hospital [facility] What to do if you have Problems For any increased pain, shortness of breath, bleeding, nausea or vomiting, chestpain, or any unexpected problems, contact your Primary Care Provider. Call [facility] ([phone]) or report to the closest Emergency Room. Call 911 if necessary. 09/01/24 1025 <Electronically signed by Inderjit Gillespie MD> Cosigner Signature (if applicable): CC: Dr. Stas Mora MD ~ Signed [facility] Work Phone: [phone]) 562-769206-12-2025 Discharge summary [facility] Medical Records Department [address] [place] [address] Emergency Department Summary 09/01/24 MR#: [id number] Acct: [id number] Name: ROBY FLORES Rep #:[id number] : [...] Prior similar symptoms: No Recent Illness/Hospitalization: No [facility] Medical History Chronic anticoagulation TIA (transient [...] shoulders elbows and wrist. He has normal clinical investigator strength. Neurologically he is awake alert. Answering [...] 87.5 H Lymph % (Auto) 4.8 L [place] % (Auto) 5.7 Eos % (Auto) 1.2 [...] Clarity Clear Urine pH 8.0 Ur Specific [place] 1.010 Urine Protein 15 H Urine Glucose [...] or dislocation present. Reading Location: [facility] Brain [facility] 09/01/24 09:05 IMPRESSION: Cerebral atrophy. Mucosal thickening of the ethmoid sinuses as well as opacification of the left maxillary sinus. Reading Location: [facility] Chest X-Ray 09/01/24 09:25 IMPRESSION: No acute abnormality is seen. [facility], 2 views, AP and [...] to thrive Disposition Disposition: Acute Care Hospital [facility] What to do if you have Problems For any increased pain, shortness of breath, bleeding, nausea or vomiting, chestpain, or any unexpected problems, contact your Primary Care Provider. Call [facility] ([phone]) or report tothe closest Emergency Room. Call 911 if necessary. 09/01/24 1025 Cosigner Signature (if applicable): CC: Dr. Stas Mora MD ~ Signed [facility]06-12-2025 Telephone encounter Note* Telephone Encounter - Russell Aguayo, [facility] - 09/01/2024 9:46 AM EDT Images from [...] ~$30. If he [facility] to [facility], he can get a 1 mo supply for ~$20. See coupons below. Rivastigmine patches are also available via GoodRx. It appears the cheapest option is through [facility], in which he can get 30 patches for $52. Coupon also below. Sending to PCP to review and provide patient with coupon card information. Russell Aguayo PharmD, [facility] Primary Care Clinical Pharmacist Memantine coupon at [facility] Memantine coupon at [facility] Rivastigmine patches coupon at [facility] Work Phone: 1(364) 680-256006-12-2025 Radiology Diagnostic study note [facility] Imaging Services [address] [place], [place] [address] Brain/Head without Contrast MR#: [id number] Acct: [id number] Name: ROBY FLORES Rep #: [id number] : 1935 M 89 From: Laith Chavez MD PCP: Dr. Stas Mora MD Status: RE G ER Study:Brain/Head without Contrast Date of Exa m: 09/01/24 Exam# [id number] Ordering Dr: Earlene Gillespie MD PROCEDURE: BRAIN/HEAD [...] of the left maxillary sinus. Reading Location: [place] [address] CC: Dr. Inderjit Gillespie MD; Dr. Stas Mora MD ~ Dip Filler: Signed [facility]06-12-2025 Radiology Diagnostic study note [facility] Imaging Services [address] [place], [place] [address] Chest 1 View (Portable) MR#: [id number] Acct: [id number] Name: ROBY FLORES Rep #: [id number] : 1935 M 89 From: Laith Chavez MD PCP: Dr. Stas Mora MD Status: RE G ER Study:Chest 1 View (Portable) Date of Exam: 09/01/24 Exam# [id number] Ordering Dr: Earlene Gillespie MD PROCEDURE: CHEST [...] No acute abnormality is seen. Reading Location: [place] [address] CC: Dr. Inderjit Gillespie MD; Dr. Stas Mora MD ~ Dip Filler: Signed [facility]06-12-2025 Radiology Diagnostic study note [facility] Imaging Services [address] [place], [place] [address] Hips B/L min 2 views w/ Pelvis MR#: [id number] Acct: [id number] Name: ROBY FLORES Rep #: [id number] : 1935 M 89 From: Laith Chavez MD PCP: Dr. Stas Mora MD Status: RE G ER Study:Hips B/L min 2 views w/ Pelvis Date of Exam: 09/01/24 Exam# [id number] Ordering Dr: Earlene Gillespie MD PROCEDURE: HIPS [...] No fracture or dislocation present. Reading Location: [place] [address] CC: Dr. Inderjit Glilespie MD; Dr. Stas Mora MD ~ Dip Filler: Signed [facility]06-11-2025 NoteHNO ID: [id number] Author: LUCIANA CISNEROS MD Service: ? Author [...] and believing his brother, who lives in [place], was present. 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 Additionally, [...] excuse any unintended typographical errors. Recording using [employer] software for draft documentation of the visit was discussed with the patient/authorized client account representative; all questions welcomed and answered. Patient/authorized client account representative agreed to proceed Luciana Cisneros [facility] [...] and believing his brother, who lives in [place], was present. 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 Additionally, [...] excuse any unintended typographical errors. Recording using [employer] software for draft documentation of the visit was discussed with the patient/authorized client account representative; all questions welcomed and answered. Patient/authorized client account representative agreed to proceed Luciana Cisneros MD documented in [facility] encounterReg[facility]06-[facility]-2025 Telephone encounter Note * Telephone Encounter - Coretta Jalloh [facility] - 08/31/2024 2:09 PM EDT [facility] Ambulatory Pharmacy Anticoagulation Clinic Anticoagulation Episode Summary Anticoagulation Care Providers Provider Role Specialty Phone number Stas Mora MD Referring Family Medicine [phone] Roby Flores is a 89 year old [...] ALLERGIES No Known Allergies Indication for Warfarin: alf current use of anticoagulant Paroxysmal atrial fibrillation [...] Pharmacy Anticoagulation Clinic Pharmacy Anticoagulation Clinic Pager: [phone]. [facility]06-11-2025 Miscellaneous Notes* Telephone Encounter - Coretta Jalloh RPh - 08/31/2024 2:09 PM EDT [facility] Ambulatory Pharmacy Anticoagulation Clinic Anticoagulation Episode Summary Anticoagulation Care Providers Provider Role Specialty Phone number Stas Mora MD Referring Family Medicine [phone] Roby Flores is a 89 year old [...] ALLERGIES No Known Allergies Indication for Warfarin: alf 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 Coretta Jalloh [facility] Clinical Pharmacist, Pharmacy Anticoagulation Clinic Pharmacy Anticoagulation Clinic Pager: [phone]. documented in this encounterRegency [facility]06-11-2025 Instructions* Patient Instructions* Luciana Cisneros MD - [...] if your symptoms change. documented in this encounterReg[facility]06-01-2025 Evaluation note* Diagnosis Onset Date Resolution Status [...] Unable to ambulate acute August 212024 10:24am [facility] Work Phone: 1(948) 823-961005-14-2025 Telephone encounter Note* Telephone Encounter - Coretta Jalloh RPh - 08/03/2024 11:20 AM EDT I have reviewed the below recommendations and agree with plan. Coretta Jalloh PharmD [facility]05-14-2025 Miscellaneous Notes* Telephone Encounter - Coretta Jalloh RPh - 08/03/2024 11:20 AM EDT I have reviewed the below recommendations and agree with plan. Coretta Jalloh PharmD * Telephone Encounter - Adrian HuangDice Manager), Amanda - 08/03/2024 10:57 AM EDT PATIENT [...] verbalized understanding. Will route to [facility] as FYBelén. Elana Campbell (Dice Manager) * Telephone Encounter - Gaelyaquelin Coretta, [facility] - 08/03/2024 10:41 AM EDT [facility] Ambulatory Pharmacy Anticoagulation Clinic Anticoagulation Episode Summary Anticoagulation Care Providers Provider Role Specialty Phone number Stas Mora MD Referring Family Medicine [phone] Roby Flores is a 88 year old [...] ALLERGIES No Known Allergies Indication for Warfarin: alf 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 Coretta Jalloh [facility] Clinical Pharmacist, Pharmacy Anticoagulation Clinic Pharmacy Anticoagulation Clinic Pager: [phone]. documented in this encounterRegency [facility]05-14-2025 Telephone encounter Note * Telephone Encounter - Adrian HuangMoonfryeElana Berry - 08/03/2024 10:57 AM EDT PATIENT [...] verbalized understanding. Will route to [facility] as FYI. 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 Coretta Jalloh [facility] Clinical Pharmacist, Pharmacy Anticoagulation Clinic Pharmacy Anticoagulation Clinic Pager: [id number]. [facility]05-08-2025 History of Present illness Narrative* Stas Mora [...] Coronary atherosclerosis of unspecified type of vessel, [place] or graft Coronary artery disease Other and [...] Past Histories independently gathered by the clinical home support worker and the remaining scribed note accurately describes [...] AM. Rosie Cruz MA documented in this encounterRegency [facility]25 NoteHNO ID: [id number] Author: STAS MORA MD Service: ? Author [...] Coronary atherosclerosis of unspecified type of vessel, [place] or graft Coronary artery disease Other and [...] Past Histories independently gathered by the clinical home support worker and the remaining scribed note accurately describes [...] July 28, 2024 11:16 AM. 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 Coretta Jalloh [facility] Clinical Pharmacist, Pharmacy Anticoagulation Clinic Pharmacy Anticoagulation Clinic Pager: [phone]. [facility]04-16-2025 Miscellaneous Notes* Telephone Encounter - Coretta Jalloh RPh - 07/06/2024 10:11 AM EDT [facility] Ambulatory Pharmacy Anticoagulation Clinic Anticoagulation Episode Summary Anticoagulation Care Providers Provider Role Specialty Phone number Stas Mora MD Referring Family Medicine [phone] Roby Flores is a 88 year old [...] ALLERGIES No Known Allergies Indication for Warfarin: alf current use of anticoagulant Paroxysmal atrial fibrillation [...] Pharmacy Anticoagulation Clinic Pharmacy Anticoagulation Clinic Pager: [phone]. 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 [facility]04-09-2025 Miscellaneous Notes* Telephone Encounter - Coretta Jalloh RPh - 06/29/2024 9:52 AM EDT [facility] Ambulatory Pharmacy Anticoagulation Clinic Anticoagulation Episode Summary Anticoagulation Care Providers Provider Role Specialty Phone number Stas Mora MD Referring Family Medicine [phone] Roby Flores is a 88 year old [...] ALLERGIES No Known Allergies Indication for Warfarin: alf current use of anticoagulant Paroxysmal atrial fibrillation (hcc) Anticoagulation Episode Summary Current INR goal: 2.0-3.0 Assessment: INR result of 2.5 is therapeutic Plan: Current Warfarin Dosing As of 06/29/2024 Full warfarin instructions: 1.5 mg every Thu, Sat; 2.5 mg all other days [employer] message Advised patient to continue current weekly [...] Pharmacy Anticoagulation Clinic Pharmacy Anticoagulation Clinic Pager: [phone]. documented in this encounterRegency Hospital [facility]03-12-2025 Instructions* Patient Instructions* Luciana Cisneros MD - 06/01/2024 3:39 PM EDT Look into adult date care once or twice a week. Physical Therapy for vascular parkinsonism documented in this encounterRegency Hospital [facility]03-12-2025 NoteHNO ID: [id number] Author: LUCIANA CISNEROS MD Service: ? Author Type: Physician Type: Progress Notes Filed: 07/14/2024 16:10 Note Text: [facility] Initial Consult Roby [...] not know 911 Social History: Primary language: Nicaraguan Marital Status: Single Living situation: Home w/ SO Socially engaged? (participates in activities such as clubs, druze, community center, sports, games, visiting friends/relatives, etc?): They go out to eat sometimes, not as often, most of the time they order stuff and pick it up at home. Caregiver Kinards and Stress Are your feeling overwhelmed? 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 (participates in activities such as clubs, druze, community center, sports, games, visiting friends/relatives, etc?): They go out to eat sometimes, not as often, most of the time they order stuff and pick it up at home. Caregiver Kinards and Stress Are your feeling overwhelmed? 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 Yes, Authorizing Provider Elvis Kearney APRN.ASSOCIATE PROFESSOR OF MUSICOLOGY Medication warfarin (COUMADIN) 1 mg tablet, Sig Take 1 tablet by mouth once daily. Patient not taking: Reported on 04/27/2024, Start Date 11/16/23, End Date , Taking? , Authorizing Provider Elvis Kearney APRN.ASSOCIATE PROFESSOR OF MUSICOLOGY Medication furosemide (LASIX) 20 mg tablet, Sig [...] 12/17/23, Taking? , Authorizing Provider Elvis Kearney APRN.ASSOCIATE PROFESSOR OF MUSICOLOGY Other OTC med/supplements: None Medication Review: - ANY HIGH RISK MEDICATIONS (STOPP CRITERIA): NO ALLERGIES No Known Allergies Review of Systems Difficulty chew/swallow: No Pain: No Tremor: No Incontinence - During the last 3 months did you leak urine? YES - Type?: likely functional incontinence Constipation/Change in bowel habits: No Vision Positive for vision impairment and wears glasses Follows with rivet hole puncher:YES Hearing - Hearing aid : Hearing impairment, [...] YES Shuffling: YES Tremors: NO Slowness: YES [place] Cognitive Exam (MOCA): 18/30 CDR Dementia Scale [...] be making the decisions. Luciana Cisneros MD [facility] documented in this encounterRegency [facility]03-[facility] Telephone encounter Note * Telephone Encounter - Edilia Mosley - 05/26/2024 3:28 PM EST Spoke with patient's significant other and scheduled on geriatric schedule as directed. Edilia Mosley [facility]03-06-2025 Miscellaneous Notes* Telephone Encounter - Edilia Mosley - 05/26/2024 3:28 PM EST Spoke with patient's significant other and scheduled on geriatric schedule as directed. Edilia Mosley * Telephone Encounter - Vicki Patricia LPN - 05/26/2024 3:01 PM EST Patient scheduled for 05/30/24 internal medicine, needs a Geriatric appointment instead Vicki Patricia LPN May 26, 2024 3:01 PM documented in this encounterRegency Hospital [facility]03-06-2025 Telephone encounter Note * Telephone Encounter - Vicki Patricia LPN - 05/26/2024 3:01 PM EST Patient scheduled for 05/30/24 internal medicine, needs a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 [facility] Miscellaneous Notes* Telephone Encounter - Coretta Jalloh RPh - 11/18/2023 4:30 PM EDT [facility] Anticoagulation Episode Summary Anticoagulation Care Providers Provider Role Specialty Phone number Stas Mora MD Referring Family Medicine [phone] Roby Flores is a 88 year old [...] ALLERGIES No Known Allergies Indication for Warfarin: alf current use of anticoagulant Paroxysmal atrial fibrillation [...] Pharmacy Anticoagulation Clinic Pharmacy Anticoagulation Clinic Pager: [phone]. documented in this encounterRegency Hospital [facility]08-26-2024 Telephone encounter Note * Telephone Encounter - Elvis Kearney APRN.CNP - 11/16/2023 9:39 AM EDT The following approved medication requests have been transmitted electronically. Requested Prescriptions Pending Prescriptions Disp Refills warfarin (COUMADIN) 1 mg tablet 30 tablet 5 Sig: Take 1 tablet by mouth once daily. Elvis Kearney APRN.CNP [facility]-26[facility] Miscellaneous Notes* Telephone Encounter - Elvis Kearney [...] 16, 2023 9:00 AM documented in this encounterRegency Hospital [facility]08-26-2024 Telephone encounter Note * Telephone Encounter - [...] Shahid MA November 16, 2023 9:06 AM [facility]-26-[facility] Telephone encounter Note* Telephone Encounter - Keke [...] Keke Rinaldi November 16, 2023 9:00 AM [facility]-24-[facility]24 Telephone encounter Note* Telephone Encounter - Coretta Jalloh RPh - 10/14/2023 4:21 PM EDT [facility] Anticoagulation Episode Summary Anticoagulation Care Providers Provider Role Specialty Phone number Stas Mora MD Referring Family Medicine [phone] Roby Flores is a 88 year old [...] ALLERGIES No Known Allergies Indication for Warfarin: alf current use of anticoagulant Paroxysmal atrial fibrillation [...] Pharmacy Anticoagulation Clinic Pharmacy Anticoagulation [facility] Pager: [phone]. [facility] Miscellaneous Notes* Telephone Encounter - Coretta Jalloh RPh - 10/14/2023 4:21 PM EDT [facility] Anticoagulation Episode Summary Anticoagulation Care Providers Provider Role Specialty Phone number Stas Mora MD Referring Family Medicine [phone] Rboy Flores is a 88 year old year [...] ALLERGIES No Known Allergies Indication for Warfarin: alf current use of anticoagulant Paroxysmal atrial fibrillation [...] Pharmacy Anticoagulation Clinic Pharmacy Anticoagulation Clinic Pager: [phone]. documented in this encounterRegency Hospital [facility]06-26-2024 Telephone encounter Note * Telephone Encounter - Colleen Sommer RPh - 09/16/2023 11:15 AM EDT [facility] Ambulatory Pharmacy Anticoagulation Clinic Anticoagulation Episode Summary Anticoagulation Care Providers Provider Role Specialty Phone number Stas Mora MD Referring Family Medicine [phone] Roby Flores is a 88 year old [...] Pharmacy Anticoagulation Clinic Pharmacy Anticoagulation [facility] Pager: [phone]. [facility] Miscellaneous Notes* Telephone Encounter - Kemal Enrique Macias - 09/16/2023 11:15 AM EDT [facility] Anticoagulation Clinic Anticoagulation Episode Summary Anticoagulation Care Providers Provider Role Specialty Phone number Stas Mora MD Referring Family Medicine [phone] Roby Flores is a 88 year old [...] Pharmacy Anticoagulation Clinic Pharmacy Anticoagulation Clinic Pager: [phone]. documented in this encounterRegency Hospital [facility]06-25-2024 Instructions* Patient Instructions* Rosie Cruz MA - 09/15/2023 8:48 AM EDT Starting Lasix (Furosemide) 20 mg once daily as needed. You can use the medication on days where swelling is increased. Elevate legs through out the day to help with swelling. Decrease sodium in diet. documented in this encounterRegency Hospital [facility]06-25-2024 History of Present illness Narrative* Stas Mora [...] Coronary atherosclerosis of unspecified type of vessel, [place] or graft Coronary artery disease Other and [...] Past Histories independently gathered by the clinical home support worker and the remaining scribed note accurately describes [...] AM. Rosie Cruz MA documented in this encounterRegency [facility]06-24-2024 Telephone encounter Note * Telephone Encounter - [...] difficulty breathing Protocols used: Leg Swelling and [id number] [facility]-24-[facility]24 Miscellaneous Notes* Telephone Encounter - Marian Corona [...] difficulty breathing Protocols used: Leg Swelling and [id number] * Telephone Encounter - Elana Valdes RN - 09/14/2023 2:52 PM EDT Called and left a voicemail for the Patient and on the Pts girlfriends phone to have the Pt call back and ask for a nurse to receive the providers message. We need more information about his bilateral leg swelling that he was scheduled for tomorrow. Elana Valdes RN documented in this encounterRegency Hospital [facility]06-24-2024 Telephone encounter Note * Telephone Encounter - Elana Valdes RN - 09/14/2023 2:52 PM EDT Called and left a voicemail for the Patient and on the Pts girlfriends phone to have the Pt call back and ask for a nurse to receive the providers message. We need more information about his bilateral leg swelling that he was scheduled for tomorrow. Elana Valdes RN [facility]-12[facility] Telephone encounter Note* Telephone Encounter - Coretta Jalloh [facility] - 09/02/2023 3:08 PM EDT [facility] Antico[facility] Anticoagulation Episode Summary Anticoagulation Care Providers Provider Role Specialty Phone number Stas Mora MD Referring Family Medicine [phone] Roby Flores is a 88 year old [...] ALLERGIES No Known Allergies Indication for Warfarin: alf current use of anticoagulant Paroxysmal atrial fibrillation [...] Pharmacy Anticoagulation Clinic Pharmacy Anticoagulation [facility] Pager: [phone]. 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 documented in this encounterRegency [facility]05-29-2024 Telephone encounter Note * Telephone Encounter - Coretta Jalloh RPh - 08/19/2023 5:09 PM EDT [facility] Anticoagulation Episode Summary Anticoagulation Care Providers Provider Role Specialty Phone number Stas Mora MD Referring Family Medicine [phone] Roby Flores is a 88 year old [...] Pharmacy Anticoagulation Clinic Pharmacy Anticoagulation [facility] Pager: [phone]. [facility] Miscellaneous Notes* Telephone Encounter - Coretta Jalloh, [facility] - 08/19/2023 5:09 PM EDT [facility] Anticoagulation Clinic Anticoagulation Episode Summary Anticoagulation Care Providers Provider Role Specialty Phone number Stas Mora MD Referring Family Medicine [phone] Roby Flores is a 88 year old [...] Pharmacy Anticoagulation Clinic Pharmacy Anticoagulation Clinic Pager: [phone]. documented in this encounterRegency Hospital [facility]05-24-2024 History of Present illness Narrative* Stas Mora [...] thinks he is being sued by a druze and thathe was given a letter about it, doesn't know who the brand strategist is or where the druze is. states this is not true. He [...] Coronary atherosclerosis of unspecified type of vessel, [place] or graft Coronary artery disease Other and [...] Past Histories independently gathered by the clinical home support worker and the remaining scribed note accurately describes [...] AM. Marta Palacio MA documented in this encounterRegency Hospital [facility]05-22-2024 Telephone encounter Note * Telephone Encounter - Coretta Jalloh, [facility] - 08/12/2023 4:27 PM EDT [facility] Antico[facility] Anticoagulation Episode Summary Anticoagulation Care Providers Provider Role Specialty Phone number Stas Mora MD Referring Family Medicine [phone] Roby Flores is a 87 year old [...] ALLERGIES No Known Allergies Indication for Warfarin: alf current use of anticoagulant Paroxysmal atrial fibrillation [...] Pharmacy Anticoagulation Clinic Pharmacy Anticoagulation [facility] Pager: [phone]. 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 documented in this encounterRegency [facility]05-15-2024 Telephone encounter Note * Telephone Encounter - Coretta Jalloh RPh - 08/05/2023 4:41 PM EDT [facility] Anticoagulation Episode Summary Anticoagulation Care Providers Provider Role Specialty Phone number Stas Mora MD Referring Family Medicine [phone] Roby Flores is a 87 year old [...] ALLERGIES No Known Allergies Indication for Warfarin: alf current use of anticoagulant Paroxysmal atrial fibrillation [...] Pharmacy Anticoagulation Clinic Pharmacy Antico[facility] Pager: [phone]. 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 [facility]-2024 Miscellaneous Notes* Telephone Encounter - Coretta Jalloh, [facility] - 07/22/2023 4:40 PM EDT [facility] Anticoagulation [facility] Anticoagulation Episode Summary Anticoagulation Care Providers Provider Role Specialty Phone number Stas Mora MD Referring Family Medicine [phone] Roby Flores is a 87 year old [...] ALLERGIES No Known Allergies Indication for Warfarin: alf current use of anticoagulant Paroxysmal atrial fibrillation [...] Pharmacy Anticoagulation Clinic Pharmacy [facility] Pager: [phone]. documented [facility] this encounterReg[facility] Telephone encounter Note * Telephone Encounter - Coretta Jalloh RPh - 07/15/2023 3:18 PM EDT [facility] Anticoagulation Episode Summary Anticoagulation Care Providers Provider Role Specialty Phone number Stas Mora MD Referring Family Medicine [phone] Roby Flores is a 87 year old [...] ALLERGIES No Known Allergies Indication for Warfarin: alf current use of anticoagulant Paroxysmal atrial fibrillation [...] Pharmacy Anticoagulation Clinic Pharmacy Antico[facility] Pager: [phone]. [facility]04-24-[facility]24 Miscellaneous Notes* Telephone Encounter - Coretta Jalloh RPh - 07/15/2023 3:18 PM EDT [facility] Anticoagulation Episode Summary Anticoagulation Care Providers Provider Role Specialty Phone number Stas Mora MD Referring Family Medicine [phone] Roby Flores is a 87 year old [...] ALLERGIES No Known Allergies Indication for Warfarin: alf current use of anticoagulant Paroxysmal atrial fibrillation [...] Pharmacy Anticoagulation Clinic Pharmacy Anticoagulation Clinic Pager: [phone]. 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 documented in this encounterRegency [facility]04-04-2024 Telephone encounter Note * Telephone Encounter - Adrian (Dice ManagerElana Berry - 06/25/2023 5:14 PM EDT Images [...] remains on Remote TM list. Elana Campbell (Dice Manager) [facility] Miscellaneous Notes* Telephone Encounter - Adrian (Dice Manager)Elana - 06/25/2023 5:14 PM EDT Images from [...] remains on Remote TM list. Elana Campbell (Dice Manager) * Telephone Encounter - Stas Mora MD - 06/25/2023 4:44 PM EDT It looks like my office became involved because the on-call doctor was called with his elevated INR. I would prefer he stay with the pharmacy for his routine monitoring. Stas Mora MD * Telephone Encounter - Adrian (Dice Manager)Elana - 06/25/2023 4:03 PM EDT Pharm [...] this time Please advise. Elana Campbell CPhT (Brass Plater) Pharmacy Anticoagulation Clinic documented in this encounterRegency Hospital [facility]04-04-2024 Telephone encounter Note * Telephone Encounter - Stas Mora MD - 06/25/2023 4:44 PM EDT It looks like my office became involved because the on-call doctor was called with his elevated INR. I would prefer he stay with the pharmacy for his routine monitoring. Stas Mora MD [facility]-04-[facility] Telephone encounter Note* Telephone Encounter - Adrian HuangDice ManagerElana Berry - 06/25/2023 4:03 PM EDT Pharm [...] this time Please advise. Elana Campbell CPhT (Brass Plater) Pharmacy Anticoagulation Clinic [facility]-03-[facility] Miscellaneous Notes* Telephone Encounter - Jason Easton [...] with VKA drugs, such as warfarin, the [employer] 2012 Guideline recommends [...] Chest 2012, 141:7S-47S Avel RA, et al. [facility] 2017, 70: 252-289 Confirmed that pt is taking 1 mg daily. No changes to diet, medications, missed or extra doses, etc. Keke Tsang MA documented in this encounterRegency Hospital [facility]03-22-2024 Miscellaneous Notes* Telephone Encounter - Marta Palacio [...] no Rosie Cruz Ma documented in this encounterRegency Hospital [facility]03-18-2024 Miscellaneous Notes* Telephone Encounter - Keke Ferraro [...] Information or narrative: no documented in this encounterRegency Hospital [facility]03-15-2024 Miscellaneous Notes* Telephone Encounter - Halina Alfaro [...] went over notes below from Jenna Fitzpatrick [employer]. She said no change in his diet, [...] 6.9. Jenna Fitzpatrick APRN.CNP documented in this encounterRegency Hospital [facility]03-15-2024 Miscellaneous Notes* Telephone Encounter - Marta Palacio [...] conference call with me. documented in this encounterRegency Hospital [facility]03-15-2024 Miscellaneous Notes* Telephone Encounter - Marta Palacio [...] if patient calls them. documented in this encounterRegency Hospital [facility]03-14-2024 Miscellaneous Notes* Telephone Encounter - Hortencia Winston RN - 06/04/2023 8:[address] Talampas has left messages for the patient to call back regarding a critical lab. documented in this encounterRegency Hospital [facility]03-14-2024 Miscellaneous Notes* Telephone Encounter - Minda Solorzano, [...] you. 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 documented in this encounterRegency Hospital [facility]03-11-2024 History of Present illness Narrative* Stas Mora [...] Coronary atherosclerosis of unspecified type of vessel, [place] or graft Coronary artery disease Other and [...] unspecified vessel or lesion type, unspecified whether [place] or transplanted heart - ICD9: 414.00, ICD10: [...] Past Histories independently gathered by the clinical home support worker and the remaining scribed note accurately describes [...] PM. Marta Palacio MA documented in this encounterRegency Hospital [facility]03-06-2024 Miscellaneous Notes* Telephone Encounter - Coretta Jalloh, [facility] - 05/27/2023 2:23 PM EST [facility] Anticoagulation Episode Summary Anticoagulation Care Providers Provider Role Specialty Phone number Stas Mora MD Referring [facility] [phone] Robykaran Flores is a 87 year old year old male patient being evaluated today for a [facility] Pharmacy Anticoagulation Clinic Anticoagulation Episode Summary Anticoagulation Care Providers Provider Role Specialty Phone number Stas Mora MD Referring Family [facility] [phone] Roby Flores is a 87 year old [...] ALLERGIES No Known Allergies Indication for Warfarin: alf current use of anticoagulant Paroxysmal atrial fibrillation [...] Pharmacy Anticoagulation Clinic Pharmacy Anticoagulation Clinic Pager: [phone]. 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 documented in this encounterRegency Hospital [facility]02-14-2024 Miscellaneous Notes* Telephone Encounter - Coretta Jalloh RPh - 05/06/2023 3:14 PM EST [facility] Anticoagulation Episode Summary Anticoagulation Care Providers Provider Role Specialty Phone number Stas Mora MD Referring Family Medicine [phone] Roby Flores is a 87 year old [...] ALLERGIES No Known Allergies Indication for Warfarin: alf current use of anticoagulant Paroxysmal atrial fibrillation [...] INR check scheduled on 05/13/2023 JENNIFER Jalloh [facility] Clinical Pharmacist, Pharmacy Anticoagulation Clinic Pharmacy Anticoagulation Clinic Pager: [phone]. documented in this encounterRegency Hospital [facility]02-07-2024 Miscellaneous Notes* Telephone Encounter - Coretta Jalloh RPh - 04/29/2023 4:00 PM EST [facility] Anticoagulation Episode Summary Anticoagulation Care Providers Provider Role Specialty Phone number Stas Mora MD Referring Family Medicine [phone] Roby Flores is a 87 year old [...] ALLERGIES No Known Allergies Indication for Warfarin: alf current use of anticoagulant Paroxysmal atrial fibrillation [...] Pharmacy Anticoagulation Clinic Pharmacy Anticoagulation Clinic Pager: [phone]. documented in this encounterRegency Hospital [facility]12-01-2023 Miscellaneous Notes* Telephone Encounter - Elise Paredes RP - 02/20/2023 3:37 PM EST [facility] Anticoagulation Episode Summary Anticoagulation Care Providers Provider Role Specialty Phone number Stas oMra MD Referring Family Medicine [phone] Roby Flores is a 87 year old [...] ALLERGIES No Known Allergies Indication for Warfarin: alf current use of anticoagulant Paroxysmal atrial fibrillation [...] need for refills. Elise Paredes [facility] Clinical Pharmacist, Pharmacy Anticoagulation Clinic Pharmacy Anticoagulation Clinic Pager: [phone]. documented in this encounterRegency Hospital [facility]11-28-2023 Miscellaneous Notes* Telephone Encounter - Franca Cohen [...] evaluation Stas Mora MD documented in this encounterRegency Hospital [facility]11-28-2023 History of Present illness Narrative* Janelle Rivera [...] 17, 2023 7:43 AM documented in this encounterRegency Hospital [facility]11-27-2023 History of Present illness Narrative* Stas Mora MD - 02/16/2023 2:00 PM EST Chief Complaint Patient presents with: ED Follow-up HPI Roby Flores is a 87 year old male who presents here today for ER Follow Up.. Pt went to the [facility] ER on 02/10/23 with c/o fatigue, [...] Recheck in 1 week. Below copied from [place]: Chief Complaint: Fatigue Informant: patient Onset/Context/Timing Onset: [...] any urinary complaints. Patient denies any headaches. [facility] Narrative Medical decision making narrative: Differential diagnosis [...] Coronary atherosclerosis of unspecified type of vessel, [place] or graft Coronary artery disease Other and [...] Completed Pneumococcal Vaccine: 65+ Completed Data reviewed [facility] ER reports 02/10/23 ASSESSMENT/PLAN: 1. Cerebral [...] Past Histories independently gathered by the clinical home support worker and the remaining scribed note accurately describes [...] PM. Marta Palacio Ma documented in this encounterRegency Hospital [facility]11-24-2023 Miscellaneous Notes* Telephone Encounter - Elise Paredes, [facility] - 02/13/2023 3:56 PM EST [facility] Anticoagulation Episode Summary Anticoagulation Care Providers Provider Role Specialty Phone number Stas Mora MD Referring Family Medicine [phone] Roby Flores is a 87 year old [...] ALLERGIES No Known Allergies Indication for Warfarin: alf current use of anticoagulant Paroxysmal atrial fibrillation [...] scheduled on 02/20/2023 Elise Paredes [facility] Clinical Pharmacist, Pharmacy Anticoagulation Clinic Pharmacy Anticoagulation Clinic Pager: [phone]. 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 documented in this encounterRegency Hospital [facility]09-01-2023 Miscellaneous Notes* Telephone Encounter - Jeimy Duong RPh - 11/21/2022 2:38 PM EDT [facility] Anticoagulation Episode Summary Anticoagulation Care Providers Provider Role Specialty Phone number Stas Mora MD Referring Family Medicine [phone] Roby Flores is a 87 year old [...] Pharmacy Anticoagulation Clinic Pharmacy Anticoagulation Clinic Pager: [phone]. documented in this encounterRegency Hospital [facility]edo08-28-2023 Hospital Discharge instructions Patient Education 11/17/2022 16:32:18 [...] Wound changes colors Numbness around the wound 2851-3739 [employer]. [address] [place] [address], [place] [address]. All rights reserved. This information is not [...] the ears or bruising around the eyes 8061-7749 [employer]. [address] [place] [address]. All rights reserved. This information is not intended as a substitute for professional medical care. Always follow yourhealthcare professional's instructions. Follow Up Care 11/17/2022 15:05:08 With:Call Physician Referral Address:Unknown When:2-4 days [facility] 08-28-2023 Note Discharge Instructions Thank you for allowing [place] to assist you with your healthcare needs. [...] Wound changes colors Numbness around the wound 6535-8175 [employer]. [address] [place] [address]. All rights reserved. This information is not [...] the ears or bruising around the eyes 7335-6935 [employer]. [address] [place] [address], [place] [address]. All rights reserved. This information is not intended as a substitute for professional medical care. Always follow yourhealthcare professional's instructions. Additional Information VACCINATE! IT SAVES LIVES! Members of the community who have not yet received the COVID-19 vaccine and would like to receive it can visit one of [facility] vaccine clinics. There are many vaccine clinic locations within the [facility]. For locations and available times, please visit www.[email or web address].[email or web address]/. It is important to note that some COVID mobile vaccine clinics are held outdoors and may be canceled in rainy or stormy conditions. To learn more about pediatric vaccinations (ages 5-11), we invite you to visit the [facility] webpage. https://www.[email or web address].org/pages/7318-Ncwwy-Wgxqdpxjueb-Mrvpoeegkl-Waquv-Nxo stions.htmlTo learn more about the COVID-19 vaccine, we invite you to visit the CDC website for a list of frequently asked questions. https://www.cdc.gov/coronavirus/2019-ncov/vaccines/faq.html [place] [facility] Patient Portal Access Instructions: Stay connected with your healthcare team and access your personal medical information anytime with the [email or web address] Patient Portal. If you would like a full copy of your medical records please contact the [facility] Medical Records Department Thursday through Thursday between 8a.m. and 4:30p.m. Please follow the directions below to access the portal: 1.Access the email account you provided upon registration to the hospital.2.Look for an invitation email from [facility].3.Open the email and access the invitation link: Accept Invitation to [email or web address].Fill in the required العلي to create your account. Sign into www.[email or web address] with your username and password that [...] you will allow to register on the [email or web address] Patient Portal for access to your information. You can also access the [email or web address] Patient Portal on the [employer]. Simply click on "Health Records" under "HealthData" and then click on the [employer] logo. HOW TO SAFELY DISPOSE OF PRESCRIPTION [...] Call your local pharmacy or go to [email or web address] to find one close to you.3.Make use of household items: Use cat litter or old coffee grounds to dispose medications if other options arenot available. Mix your drugs with these household products, seal them in an airtight container andthrow it into the garbage. Call [facility]: [phone] to be sure your drugs can be [...] aware that I should contact my doctor. 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: Date/Time: Relationship to Patient: Witness Name/Signature: Date/Time: [facility]08-28-2023 Note ORIGINAL EXAMINATION: CT OF THE HEAD [...] 11/17/2022 4:26:20 PM Ordering Provider: [facility]08-18-2023 Miscellaneous Notes* Telephone Encounter - Senia Phillips RPh - 11/07/2022 3:22 PM EDT [facility] Anticoagulation Clinic Anticoagulation Episode Summary Anticoagulation Care Providers Provider Role Specialty Phone number Stas Mora MD Referring Family Medicine [phone] Roby Flores is a 87 year old [...] ALLERGIES No Known Allergies 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 documented in this encounterRegency Hospital [facility]08-11-2023 Miscellaneous Notes* Telephone Encounter - Senia Phillips RPh - 10/31/2022 2:29 PM EDT Patient due to test INR today. Will continue to monitor for results. Senia Phillips RPh documented in this encounterRegency Hospital [facility]08-04-2023 Miscellaneous Notes* Telephone Encounter - Senia Phillips RPh - 10/24/2022 3:13 PM EDT [facility] Anticoagulation Clinic Anticoagulation Episode Summary Anticoagulation Care Providers Provider Role Specialty Phone number Stas Mora MD Referring Family Medicine [phone] Roby Flores is a 87 year old [...] ALLERGIES No Known Allergies Indication for Warfarin: alf current use of anticoagulant Paroxysmal atrial fibrillation (hcc) Anticoagulation Episode Summary Current INR goal: 2.0-3.0 Assessment: INR result of 2.5 is therapeutic Plan: Current Warfarin Dosing As of 10/24/2022 Full warfarin instructions: 2.5 mg every day Sent [employer] message Advised patient to decrease total weekly regimen to better reflect overall dose given past few weeks Next lab INR check scheduled on 10/31/2022 Senia Phillips riya Clinical Pharmacist, Pharmacy Anticoagulation Clinic Pharmacy Anticoagulation Clinic Pager: [phone]. documented in this encounterRegency Hospital [facility]07-28-2023 Miscellaneous Notes* Telephone Encounter - Jason Easton [...] a result of 5.5. Routed to Dr aEston at 1559 as an FYI. Please see the Anticoagulation TE call from today by the [facility]. They spoke with pt at 1543 and gave pt instructions on what to do. 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 Yomi Wills [facility] Clinical Pharmacist, Pharmacy Anticoagulation Clinic Pharmacy Anticoagulation Clinic Pager: [phone]. documented in this encounterRegency Hospital [facility]07-07-2023 Miscellaneous Notes* Telephone Encounter - Jeimy Duong RPh - 09/26/2022 2:11 PM EDT [facility] Anticoagulation Episode Summary Anticoagulation Care Providers Provider Role Specialty Phone number Stas Mora MD Referring Family Medicine [phone] Roby Flores is a 87 year old [...] Pharmacy Anticoagulation Clinic Pharmacy Anticoagulation Clinic Pager: [phone]. documented in this encounterRegency Hospital [facility]06-23-2023 Miscellaneous Notes* Telephone Encounter - Jeimy Duong RPh - 09/12/2022 2:50 PM EDT [facility] Anticoagulation Episode Summary Anticoagulation Care Providers Provider Role Specialty Phone number Stas Mora MD Referring Family Medicine [phone] Roby Flores is a 87 year old [...] accidental over dosage, changes in warfarin tablet color/shape/inside sales lead, eating less green vegetables, recent illness/fever/nausea/vomiting/diarrhea, increased [...] Pharmacy Anticoagulation Clinic Pharmacy Anticoagulation Clinic Pager: [phone]. documented in this encounterRegency Hospital [facility]06-06-2023 Instructions* Patient Instructions* Marta Palacio Ma - 08/26/2022 1:36 PM EDT Please check your medications when you get home and make sure that your medications match our list. documented in this encounterRegency Hospital [facility]06-06-2023 History of Present illness Narrative* Stas Mora MD - 08/26/2022 1:20 PM EDT Medical B eligibilty date 1999 Date of last exam 09/05/2021 PAST MEDICAL HISTORY Diagnosis Date Coronary atherosclerosis of unspecified type of vessel, [place] or graft Coronary artery disease Other and [...] wishes: Yes I am willing to follow [place] advanced directives. Depression screen He in the [...] Past Histories independently gathered by the clinical home support worker and the remaining scribed note accurately describes my personal service to the patient. Stas Mora MD The documentation for this note was completed by Marta Palacio Ma acting as scribe for Stas Mora MD. August 26, 2022 1:17 PM. Marta Palacio Ma documented in this encounterRegency Hospital [facility]06-02-2023 Miscellaneous Notes* Telephone Encounter - Senia Phillips [facility] - 08/22/2022 2:50 PM EDT [facility] Anticoagulation Episode Summary Anticoagulation Care Providers Provider Role Specialty Phone number Stas Mora MD Referring Family Medicine [phone] Roby Flores is a 87 year old [...] ALLERGIES No Known Allergies Indication for Warfarin: alf current use of anticoagulant Paroxysmal atrial fibrillation (hcc) Anticoagulation Episode Summary Current INR goal: 2.0-3.0 Assessment: INR result of 2.4 is therapeutic Plan: Current Warfarin Dosing As of 08/22/2022 Full warfarin instructions: 3.75 mg every Fri; 2.5 mg all other days Sent [employer] message Advised patient to continue current weekly dose as noted above Next lab INR check scheduled on 08/29/2022 Senia Phillips RPh Clinical Pharmacist, Pharmacy Anticoagulation Clinic Pharmacy Anticoagulation Clinic Pager: [phone]. documented in this encounterRegency Hospital [facility]04-28-2023 Miscellaneous Notes* Telephone Encounter - Senia Phillips RPh - 07/18/2022 3:29 PM EDT [facility] Anticoagulation Episode Summary Anticoagulation Care Providers Provider Role Specialty Phone number Stas Mora MD Referring Family Medicine [phone] Roby Flores is a 86 year old [...] ALLERGIES No Known Allergies Indication for Warfarin: alf current use of anticoagulant Paroxysmal atrial fibrillation (hcc) Anticoagulation Episode Summary Current INR goal: 2.0-3.0 Assessment: INR result of 2.1 is therapeutic Plan: Current Warfarin Dosing As of 07/18/2022 Full warfarin instructions: 2.5 mg every day Sent [employer] message Advised patient to continue current weekly dose as noted above Next lab INR check scheduled on 08/01/2022 Senia Phillips RPh Clinical Pharmacist, Pharmacy Anticoagulation Clinic Pharmacy Anticoagulation Clinic Pager: [phone]. 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 documented in this encounterRegency Hospital [facility]04-03-2023 Miscellaneous Notes* Telephone Encounter - Elvis Kearney APRN.ASSOCIATE PROFESSOR OF MUSICOLOGY - 06/23/2022 10:17 AM EDT The following approved medication requests have been transmitted electronically. Requested Prescriptions Pending Prescriptions Disp Refills warfarin (COUMADIN) 2.5 mg tablet [Pharmacy Med Name: WARFARIN SODIUM 2.5 MG TABLET] 135 tablet 3 Sig: TAKE 5 MG EVERY MON, DIXIE 2.5 MG ALL OTHER DAYS Elvis Kearney APRN.CNP documented in this encounterRegency Hospital [facility]03-31-2023 Miscellaneous Notes* Telephone Encounter - Seniarachel Phillips [facility] - 06/20/2022 4:46 PM EDT [facility]tico[facility] Clinic Anticoagulation Episode Summary Anticoagulation Care Providers Provider Role Specialty Phone number Stas Mora MD Referring Family Medicine [phone] Roby Flores is a 86 year old [...] ALLERGIES No Known Allergies Indication for Warfarin: alf current use of anticoagulant Paroxysmal atrial fibrillation [...] Pharmacy Anticoagulation Clinic Pharmacy Anticoagulation Clinic Pager: [phone]. documented in this encounterRegency Hospital [facility]03-17-2023 Miscellaneous Notes* Telephone Encounter - Senia Phillips RPh - 06/06/2022 4:18 PM EDT [facility] Anticoagulation Episode Summary Anticoagulation Care Providers Provider Role Specialty Phone number Stas Mora MD Referring Family Medicine [phone] Roby Flores is a 86 year old [...] ALLERGIES No Known Allergies Indication for Warfarin: alf current use of anticoagulant Paroxysmal atrial fibrillation (hcc) Anticoagulation Episode Summary Current INR goal: 2.0-3.0 Assessment: INR result of 2.6 is therapeutic Plan: Current Warfarin Dosing As of 06/06/2022 Full warfarin instructions: 2.5 mg every day Sent [employer] message Advised patient to continue current weekly dose as noted above Next lab INR check scheduled on 06/20/2022 Senia Phillips RPh Clinical Pharmacist, Pharmacy Anticoagulation Clinic Pharmacy Anticoagulation Clinic Pager: [phone]. documented in this encounterRegency Hospital [facility]03-10-2023 Miscellaneous Notes* Telephone Encounter - Neeru Rice LPN - 05/30/2022 3:02 PM EST Pharmacists manage INR documented in this encounterRegency Hospital [place]03-02-2023 Miscellaneous Notes* Telephone Encounter - Halina Alfaro [...] you. Jenna Fitzpatrick APRN.SHEMAR documented in this encounterRegency Hospital [place]03-01-2023 Miscellaneous Notes* Telephone Encounter - Judy Matos [...] hip/leg 10. : na Protocols used: Hip [id number], Hip [id number] documented in this encounterRegency Hospital [place]03-01-2023 Miscellaneous Notes* Telephone Encounter - Fani Grace RN - 05/21/2022 12:22 PM EST Patient disconnected during transferred, called multiple time with no answer. documented in this encounterRegency Hospital [place]02-27-2023 Miscellaneous Notes* Telephone Encounter - Paige Hickman [...] instructions. Franca Cohen LPN documented in this encounterRegency Hospital [place]02-24-2023 Miscellaneous Notes* Telephone Encounter - Senia Phillips RPh - 05/16/2022 5:10 PM EST Patient due to test INR today. Will continue to monitor for results. Senia Phillips RPh documented in this encounterRegency Hospital [facility]02-10-2023 Miscellaneous Notes* Telephone Encounter - Senia Phillips RPh - 05/02/2022 3:06 PM EST [facility] Anticoagulation Episode Summary Anticoagulation Care Providers Provider Role Specialty Phone number Stas Mora MD Referring Family Medicine [phone] Roby Flores is a 86 year old year old male patient being evaluated today for a Telemanagement visit. Patient is currently on the following anticoagulant(s) Warfarin. Labs PT INR (no units) Date Value 05/15/2021 2.3 04/17/2021 1.9 03/13/2021 Test sent to [facility]. 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 documented in this encounterRegency Hospital [facility]01-27-2023 Miscellaneous Notes* Telephone Encounter - Senia Phillips RPh - 04/18/2022 4:25 PM EST [facility] Anticoagulation Episode Summary Anticoagulation Care Providers Provider Role Specialty Phone number Stas Mora MD Referring Family Medicine [phone] Roby Flores is a 86 year old year old male patient being evaluated today for a Telemanagement visit. Patient is currently on the following anticoagulant(s) Warfarin. Labs PT INR (no units) Date Value 05/15/2021 2.3 04/17/2021 1.9 03/13/2021 Test sent to [facility]. 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 documented in this encounterRegency Hospital [facility]01-13-2023 Miscellaneous Notes* Telephone Encounter - Elise Paredes RPh - 04/04/2022 4:09 PM EST [facility] Anticoagulation Episode Summary Anticoagulation Care Providers Provider Role Specialty Phone number Stas Mora MD Referring Family Medicine [phone] Roby Flores is a 86 year old year old male patient being evaluated today for a Lab INR. Patient is currently on the following anticoagulant(s) Warfarin. Labs PT INR (no units) Date Value 05/15/2021 2.3 04/17/2021 1.9 03/13/2021 Test sent to [facility]. INR (no units) Date Value 04/04/2022 [...] ALLERGIES No Known Allergies Indication for Warfarin: alf current use of anticoagulant Paroxysmal atrial fibrillation [...] every 2 weeks Elise Paredes [facility] Clinical Pharmacist, Pharmacy Anticoagulation Clinic Pharmacy Anticoagulation Clinic Pager: [phone]. documented in this encounterRegency Hospital [facility]01-09-2023 Miscellaneous Notes* Telephone Encounter - Rosie Cruz Ma - 03/31/2022 5:12 PM EST Office received continuity of care paperwork from the [place] requesting pt's last OV, labs and Imm. PerPCP okay to fax back requested records. Faxed back to [facility] at F#: [phone]. Rosie Cruz Ma documented in this encounterRegency Hospital [facility]12-30-2022 Miscellaneous Notes* Telephone Encounter - Carmelina Cruz [facility] - 03/21/2022 4:05 PM EST [facility] Anticoagulation Clinic Anticoagulation Episode Summary Anticoagulation Care Providers Provider Role Specialty Phone number Stas Mora MD Referring Family Medicine [phone] Roby Flores is a 86 year old year old male patient being evaluated today for a Telemanagement visit. Patient is currently on the following anticoagulant(s) Warfarin. Labs PT INR (no units) Date Value 05/15/2021 2.3 04/17/2021 1.9 03/13/2021 Test sent to [facility]. INR (no units) Date Value 03/21/2022 [...] ALLERGIES No Known Allergies Indication for Warfarin: alf current use of anticoagulant Paroxysmal atrial fibrillation (hcc) Anticoagulation Episode Summary Current INR goal: 2.0-3.0 Assessment: INR result of 2.9 is therapeutic Plan: Current Warfarin Dosing As of 03/21/2022 Full warfarin instructions: 2.5 mg every day; Starting 03/21/2022 Sent [employer] message Advised patient to continue current weekly dose as noted above Next home INR check scheduled on 04/04/2022 Carmelina Cruz RPh Clinical Pharmacist, Pharmacy Anticoagulation Clinic Pharmacy Anticoagulation Clinic Pager: [phone]. * Telephone Encounter - Carmelina Cruz RPh - 03/21/2022 3:12 PM EST Patient due to test INR today. Will continue to monitor for results. Carmelina Cruz RPh documented in this encounterRegency Hospital [facility]12-02-2022 Miscellaneous Notes* Telephone Encounter - Oliva Westbrook [...] whatever he wanted to. documented in this encounterRegency Hospital [facility]10-31-2022 Miscellaneous Notes* Telephone Encounter - Paige Hickman RPh - 01/20/2022 3:55 PM EDT [facility] Anticoagulation Clinic Anticoagulation Episode Summary Anticoagulation Care Providers Provider Role Specialty Phone number Stas Mora MD Referring Family Medicine [phone] Roby Flores is a 86 year old year old male patient being evaluated today for a Telemanagement visit. Patient is currently on the following anticoagulant(s) Warfarin. Labs PT INR (no units) Date Value 05/15/2021 2.3 04/17/2021 1.9 03/13/2021 Test sent to [facility]. INR (no units) Date Value 01/20/2022 [...] instructed to call [facility] at [phone] with any questionsor concerns. Paige Hickmna RPh Clinical Pharmacist, Pharmacy Anticoagulation Clinic Pharmacy Anticoagulation Clinic Pager: [phone] documented in this encounterRegency Hospital [facility]10-28-2022 Miscellaneous Notes* Telephone Encounter - Senia Phillips [...] the providers message. Sent information as a [employer] message as well. Elana Valdes RN * [...] to contact patient with no answer at [phone]. Current dose of coumadin is: 2.5 mg every day . Previous INR (date and result): 01/03/22 2.4 documented in this encounterRegency Hospital [facility]10-24-2022 Miscellaneous Notes* Telephone Encounter - Jenna Fitzpatrick [...] advise. López Mckenna LPN documented in this encounterRegency Hospital [facility]10-14-2022 Miscellaneous Notes* Telephone Encounter - Senia Phillips RPh - 01/03/2022 4:11 PM EDT [facility] Anticoagulation Clinic Anticoagulation Episode Summary Anticoagulation Care Providers Provider Role Specialty Phone number Stas Mora MD Referring Family Medicine [phone] Roby Flores is a 86 year old year old male patient being evaluated today for a Telemanagement visit. Patient is currently on the following anticoagulant(s) Warfarin. Labs PT INR (no units) Date Value 05/15/2021 2.3 04/17/2021 1.9 03/13/2021 Test sent to [facility]. 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 documented in this encounterRegency Hospital [facility]10-14-2022 Miscellaneous Notes* Telephone Encounter - Marta Palacio Ma - 01/03/2022 10:49 AM EDT Pt notified of results via [employer]. Marta Palacio Ma * Telephone Encounter - Stas Mora MD - 01/02/2022 6:07 PM EDT Please notify patient that his thyroid ultrasound looks OK, the nodules are all small, appear normal, and do not need any further evaluation pr follow up. Stas Mora MD documented in this encounterRegency Hospital [facility]10-06-2022 History of Present illness Narrative* Stas Mora [...] about 1-2 hours. Pt was admitted to [facility] ER 12/21/21 with stroke sx however [...] in the last year. Below copied from [facility]: HPI History of Present Illness Chief [...] extremities. He has 5 out of 5 clinical investigator strength bilaterally. Dorsi and plantar flexion intact. [...] Chronic anticoagulation: Status: Acute Code(s): Z79.01 - alf (current) use of anticoagulants Medications at Discharge [...] symptoms resolved. Hospital Course: 1. TIA/paroxysmal A. [id number]-pixo-old male presented with right-sided weakness and aphasia, [...] Coronary atherosclerosis of unspecified type of vessel, [place] or graft Coronary artery disease Other and [...] 12/06/2024 ADVANCE DIRECTIVE DISCUSSION Completed Data reviewed [facility] reports from 10/21/21-10/22/21 ASSESSMENT/PLAN: 1. Hospital [...] unspecified vessel or lesion type, unspecified whether [place] or transplanted heart - ICD9: 414.00, ICD10: I25.10 Continue current medications. Follow up in Dec as scheduled with fasting labs prior. I agree with the Chief Complaint, ROS, and Past Histories independently gathered by the clinical home support worker and the remaining scribed note accurately describes [...] AM. Marta Palacio Ma documented in this encounterRegency Hospital [facility]09-30-2022 Miscellaneous Notes* Telephone Encounter - Senia Phillips [facility] - 12/20/2021 4:39 PM EDT [facility]ulatory Pharmacy Anticoagulation Clinic Anticoagulation Episode Summary Anticoagulation Care Providers Provider Role Specialty Phone number Stas Mora MD Referring Family Medicine [phone] Roby Flores is a 86 year old year old male patient being evaluated today for a Telemanagement visit. Patient is currently on the following anticoagulant(s) Warfarin. Labs PT INR (no units) Date Value 05/15/2021 2.3 04/17/2021 1.9 03/13/2021 Test sent to [facility]. 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 documented in this encounterRegency Hospital [facility]09-16-2022 Miscellaneous Notes* Telephone Encounter - Senia Phillips RPh - 12/06/2021 4:29 PM EDT [facility] Anticoagulation Episode Summary Anticoagulation Care Providers Provider Role Specialty Phone number Stas Mora MD Referring [facility] [phone] Roby Flores is a 86 year old year old male patient being evaluated today for a Telemanagement visit. Patient is currently on the following anticoagulant(s) Warfarin. Labs PT INR (no units) Date Value 05/15/2021 2.3 04/17/2021 1.9 03/13/2021 Test sent to [facility]. 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 documented in this encounterRegency Hospital [facility]09-02-2022 Miscellaneous Notes* Telephone Encounter - Janice Huang RPh - 11/22/2021 5:17 PM EDT [facility] Anticoagulation [facility] Anticoagulation Episode Summary Anticoagulation Care Providers Provider Role Specialty Phone number Stas Mora MD Referring [facility] [phone] Roby Flores is a 86 year old year old male patient being evaluated today for a Telemanagement visit. Patient is currently on the following anticoagulant(s) Warfarin. Labs PT INR (no units) Date Value 05/15/2021 2.3 04/17/2021 1.9 03/13/2021 Test sent to [facility]. INR (no units) Date Value 11/22/2021 [...] ALLERGIES No Known Allergies Indication for Warfarin: alf current use of anticoagulant Paroxysmal atrial fibrillation [...] Advised pt to Call Coumadin Clinic at [phone] to confirm dosing and follow-up Janice Huang [facility] Clinical Pharmacist, Pharmacy Anticoagulation Clinic Pharmacy Anticoagulation Clinic Pager: [phone]. documented in this encounterRegency Hospital [facility]edo08-19-2022 Miscellaneous Notes* Telephone Encounter - Senia PhillipsEnrique - 11/08/2021 5:01 PM EDT [facility] Anticoagulation Clinic Anticoagulation Episode Summary Anticoagulation Care Providers Provider Role Specialty Phone number Stas Mora MD Referring [facility] [phone] Roby Flores is a 86 year old year old male patient being evaluated today for a Telemanagement visit. Patient is currently on the following anticoagulant(s) Warfarin. Labs PT INR (no units) Date Value 05/15/2021 2.3 04/17/2021 1.9 03/13/2021 Test sent to [facility]. INR (no units) Date Value 11/08/2021 [...] ALLERGIES No Known Allergies Indication for Warfarin: alf current use of anticoagulant Paroxysmal atrial fibrillation (hcc) Anticoagulation Episode Summary Current INR goal: 2.0-3.0 Assessment: INR result of 2.8 is therapeutic Plan: Current Warfarin Dosing As of 11/08/2021 Full warfarin instructions: 2.5 mg every day Sent [employer] message Advised patient to continue current weekly dose as noted above Next lab INR check scheduled on 11/22/2021 Senia Phillips RPh Clinical Pharmacist, Pharmacy Anticoagulation Clinic Pharmacy Anticoagulation Clinic Pager: [phone]. documented in this encounterRegency Hospital [facility]08-05-2022 Miscellaneous Notes* Telephone Encounter - Janice Huang RPh - 10/25/2021 4:16 PM EDT [facility]tico[facility] Anticoagulation Episode Summary Anticoagulation Care Providers Provider Role Specialty Phone number Stas Mora MD Referring [facility] [phone] Roby Flores is a 86 year old year old male patient being evaluated today for a Telemanagement visit. Patient is currently on the following anticoagulant(s) Warfarin. Labs PT INR (no units) Date Value 05/15/2021 2.3 04/17/2021 1.9 03/13/2021 Test sent to [facility]. INR (no units) Date Value 10/25/2021 [...] ALLERGIES No Known Allergies Indication for Warfarin: alf current use of anticoagulant Paroxysmal atrial fibrillation [...] Pharmacy Anticoagulation Clinic Pharmacy Anticoagulation Clinic Pager: [phone] . documented in this encounterRegency Hospital [facility]07-08-2022 Miscellaneous Notes* Telephone Encounter - Elana Campbell (Dice Manager) - 09/27/2021 4:50 PM EDT PATIENT CALL Patient called call center regarding results. Patient called and stated he had his INR checked today (09/27) and it was 2.3. Patient can be called at [phone] with any questions or sent MC message if result is within range. PT INR (no units) Date Value 05/15/2021 2.3 04/17/2021 1.9 03/13/2021 Test sent to [facility]. INR (no units) Date Value 09/27/2021 2.3 09/13/2021 2.7 08/30/2021 2.1 Elana Campbell (Dice Manager) * Telephone Encounter - Yomi Wills RPh - 09/27/2021 6:28 AM EDT Patient due to test INR today. Will continue to monitor for results. Yomi Wills RPh documented in this encounterReg[facility] Miscellaneous Notes* Telephone Encounter - Senia Phillips RPh - 09/13/2021 4:11 PM EDT [facility] Anticoagulation Episode Summary Anticoagulation Care Providers Provider Role Specialty Phone number Stas Mora MD Referring [facility] [phone] Roby Flores is a 86 year old year old male patient being evaluated today for a Telemanagement visit. Patient is currently on the following anticoagulant(s) Warfarin. Labs PT INR (no units) Date Value 05/15/2021 2.3 04/17/2021 1.9 03/13/2021 Test sent to [facility]. INR (no units) Date Value 09/13/2021 [...] ALLERGIES No Known Allergies Indication for Warfarin: alf current use of anticoagulant Paroxysmal atrial fibrillation (hcc) Anticoagulation Episode Summary Current INR goal: 2.0-3.0 Assessment: INR result of 2.7 is therapeutic Plan: Sent [employer] message Advised patient to continue current weekly dose Next lab INR check scheduled on 09/27/2021 Senia Phillips RPh Clinical Pharmacist, Pharmacy Anticoagulation Clinic Pharmacy [facility] Pager: [phone] . documented in this encounterRegency Hospital [facility]06-16-2022 History of Present illness Narrative* Stas Mora MD - 09/05/2021 11:20 AM EDT Medical B eligibilty date 1999 Date of last exam 08/28/2020 PAST MEDICAL HISTORY Diagnosis Date Coronary atherosclerosis of unspecified type of vessel, [place] or graft Coronary artery disease Other and [...] [place] every 6 [place]. Pt follows with [facility] for Coumadin management. Pt denies any other Specialist. End of Live Planning discussed including patients advanced directive wishes: Yes has both. Daughteris his POA. I am willing to follow [place] advanced directives. Depression screen He in the [...] to remember the following three words: Banana, [place] and Chair Visuospatial/Executive Functioning: Clock drawin/2 (Normal [...] Past Histories independently gathered by the clinical home support worker and the remaining scribed note accurately describes my personal service to the patient. Stas Mora MD The documentation for this note was completed by Rosie Cruz Ma acting as scribe for Stas Mora MD. September 05, 2021 11:33 AM. Rosie Cruz Ma documented in this encounterRegency Hospital [facility]06-10-2022 Miscellaneous Notes* Telephone Encounter - Senia Phillips RPh - 08/30/2021 5:10 PM EDT [facility] Anticoagulation Episode Summary Anticoagulation Care Providers Provider Role Specialty Phone number Stas Mora MD Referring [facility] [phone] Roby Flores is a 86 year old year old male patient being evaluated today for a Telemanagement visit. Patient is currently on the following anticoagulant(s) Warfarin. Labs PT INR (no units) Date Value 05/15/2021 2.3 04/17/2021 1.9 03/13/2021 Test sent to [facility]. 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 documented in this encounterRegency Hospital [facility]06-10-2022 Miscellaneous Notes* Telephone Encounter - Jenna Fitzpatrick APRN.CNP - 08/30/2021 8:56 AM EDT Needs order for PT/INR, order signed. Jenna Fitzpatrick APRN.SHEMAR documented in this encounterRegency Hospital [facility]05-27-2022 Miscellaneous Notes* Telephone Encounter - Rosie Cruz Ma - 08/16/2021 2:18 PM EDT INR has been reviewed in another encounter. Rosie Cruz Ma documented in this encounterRegency Hospital [facility]05-13-2022 Miscellaneous Notes* Telephone Encounter - Senia Phillips RPh - 08/02/2021 4:11 PM EDT [facility] Anticoagulation Episode Summary Anticoagulation Care Providers Provider Role Specialty Phone number Stas Mora MD Referring [facility] [phone] Roby Flores is a 85 year old year old male patient being evaluated today for a Telemanagement visit. Patient is currently on the following anticoagulant(s) Warfarin. Labs PT INR (no units) Date Value 05/15/2021 2.3 04/17/2021 1.9 03/13/2021 Test sent to [facility]. 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 documented in this encounterRegency Hospital [facility]04-27-2022 Miscellaneous Notes* Telephone Encounter - Rosie Cruz [...] months Stas Mora MD documented in this encounterRegency Hospital [facility]04-25-2022 Miscellaneous Notes* Telephone Encounter - Elvis Kearney APRN.CNP - 07/15/2021 12:39 PM EDT The following approved medication requests have been transmitted electronically. Pending Prescriptions Disp Refills WARFARIN 2.5 MG TABLET 135 tablet 3 Sig: TAKE 5 MG EVERY MON, DIXIE 2.5 MG ALL OTHER DAYS MESFIN: No Elvis Kearney APRN.CNP documented in this encounterRegency Hospital [facility]edo04-18-2022 History of Present illness Narrative* Stas Mora [...] SOB. No swelling in feet orankles. 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 Taking Fosinopril 10 mg daily. Lipid: [...] Coronary atherosclerosis of unspecified type of vessel, [place] or graft Coronary artery disease Other and [...] unspecified vessel or lesion type, unspecified whether [place] or transplanted heart - ICD9: 414.00, ICD10: [...] Past Histories independently gathered by the clinical home support worker and the remaining scribed note accurately describes [...] AM. Marta Palacio Ma documented in this encounterRegency Hospital [facility]edo04-13-2022 Miscellaneous Notes* Telephone Encounter - Coretta Jalloh, [facility] - 07/03/2021 3:40 PM EDT [facility] Anticoagulation Episode Summary Anticoagulation Care Providers Provider Role Specialty Phone number Stas Mora MD Referring [facility] [phone] Roby Flores is a 85 year old year old male patient being evaluated today for a Lab INR. Patient is currently on the following anticoagulant(s) Warfarin. Labs PT INR (no units) Date Value 05/15/2021 2.3 04/17/2021 1.9 03/13/2021 Test sent to [facility]. INR (no units) Date Value 07/03/2021 4.5 06/12/2021 3.5 Creatinine (mg/dL) Date Value 03/13/2021 0.80 08/28/2020 0.83 Bilirubin, Total (mg/dL) Date Value 03/13/2021 0.5 ALT (U/L) Date Value 03/13/2021 24 AST (U/L) Date Value 03/13/2021 24 CrCl cannot be calculated (Unknown ideal weight.). 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 * Telephone Encounter - Marta Palacio Ma - 07/03/2021 3:05 PM EDT INR 4.5. Results routed to pharmacist who Handles pt coumadin. Marta Palacio Ma documented in this encounterRegency Hospital [facility]edo03-23-2022 Miscellaneous Notes* Telephone Encounter - Coretta Jalloh RPh - 06/12/2021 3:20 PM EDT [facility] Anticoagulation Episode Summary Anticoagulation Care Providers Provider Role Specialty Phone number Stas Mora MD Referring [facility] [phone] Roby Flores is a 85 year old year old male patient being evaluated today for a Lab INR. Patient is currently on the following anticoagulant(s) Warfarin. Labs PT INR (no units) Date Value 05/15/2021 2.3 04/17/2021 1.9 03/13/2021 Test sent to [facility]. INR (no units) Date Value 06/12/2021 3.5 Creatinine (mg/dL) Date Value 03/13/2021 0.80 08/28/2020 0.83 Bilirubin, Total (mg/dL) Date Value 03/13/2021 0.5 ALT (U/L) Date Value 03/13/2021 24 AST (U/L) Date Value 03/13/2021 24 CrCl cannot be calculated (Unknown ideal weight.). ALLERGIES No Known Allergies Indication for Warfarin: alf current use of anticoagulant Paroxysmal atrial fibrillation (hcc) Anticoagulation Episode Summary Current INR goal: 2.0-3.0 Assessment: INR result of 3.5 is SUPRAtherapeutic due to: No obvious cause Plan: Called and spoke to patient/caregiver Advised patient to hold 1 dose then continue current regimen Next lab INR check scheduled on 07/03 in [place]. Patient verbalizes understanding of the plan. Patient denies need for refills. Coretta Jalloh RPh Clinical Pharmacist, Pharmacy Anticoagulation Clinic Pharmacy Anticoagulation Clinic Pager: [phone] . * Telephone Encounter - Rosie Cruz Ma - 06/12/2021 3:08 PM EDT Pt's INR results have finalized. Routing to pharm to review and advise. Rosie Cruz Ma documented in this encounterRegency Hospital [facility]12-21-2020 History of Present illness Narrative* Hussein George [...] 12, 2020 5:01 PM documented in this encounterRegency Hospital ToledoDischarge summary Author Inderjit Gillespie [facility] Note Date/Time September 01, 2024 10:2 5am [facility] Medical Records Department [address] [place] [address] Emergency Department Summary 09/01/24 MR#: [id number] Acct: [id number] Name: ROBY FLORES Rep #:[id number] : [...] shoulders elbows and wrist. He has normal clinical investigator strength. Neurologically he is awake alert. Answering [...] 87.5 H Lymph % (Auto) 4.8 L [place] % (Auto) 5.7 Eos % (Auto) 1.2 [...] Clarity Clear Urine pH 8.0 Ur Specific [place] 1.010 Urine Protein 15 H Urine Glucose [...] No fracture or dislocation present. Reading Location: [facility]--[address] 09/01/24 09:05 IMPRESSION: Cerebral atrophy. Mucosal thickening of the ethmoid sinuses as well as opacification of the left maxillary sinus. Reading Location: [facility]-IR-1 Chest X-Ray 09/01/24 09:25 IMPRESSION: No acute abnormality is seen. Reading Location: [facility]-IR-1 Chest x-ray, 2 views, AP and [...] to thrive Disposition Disposition: Acute Care Hospital [facility] What to do if you have Problems For any increased pain, shortness of breath, bleeding, nausea or vomiting, chestpain, or any unexpected problems, contact your Primary Care Provider. Call [employer] [facility] ([phone]) or report to the closest Emergency Room. Call 911 if necessary. 09/01/24 1025 <Electronically signed by Inderjit Gillespie MD> Cosigner Signature (if applicable): CC: Dr. 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) use of anticoagulants Paroxysmal atrial fibrillation (HCC) Atrial fibrillation documented in this encounter [facility]* Diagnosis alf current use of anticoagulant- Primary Long-term (current) use of anticoagulants Paroxysmal atrial fibrillation (HCC) Atrial fibrillation documented in this encounter [facility]* Diagnosis Essential hypertension, benign- Primary Atherosclerosis of coronary artery without angina pectoris, unspecified vessel or lesion type, unspecified whether [place] or transplanted heart Paroxysmal atrial fibrillation (HCC) Atrial fibrillation Primary osteoarthritis of both knees Primary localized osteoarthrosis, lower leg [facility] Diagnosis Atherosclerosis of coronary artery without angina pectoris, unspecified vessel or lesion type, unspecified whether [place] or transplanted heart- Primary Essential hypertension, benign [facility]* 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) use of anticoagulants Paroxysmal atrial fibrillation (HCC) Atrial fibrillation documented in this encounter [facility]* Diagnosis Elevated INR- Primary Abnormal coagulation profile [facility]* 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) use of anticoagulants Paroxysmal atrial fibrillation (HCC) Atrial fibrillation [facility]* Diagnosis Encounter for Medicare annual wellness exam- Primary Routine general medical examination at a health care facility Paroxysmal atrial fibrillation (HCC) Atrial fibrillation Essential hypertension, benign [facility]* Diagnosis alf current use of anticoagulant- Primary Long-term (current) use of anticoagulants Encounter for monitoring Coumadin therapy Encounter for therapeutic drug monitoring documented [facility]* 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) use of anticoagulants Paroxysmal atrial fibrillation (HCC) Atrial fibrillation documented in this encounter [facility] note* Diagnosis alf current use of anticoagulant- Primary Long-term (current) use of anticoagulants Paroxysmal atrial fibrillation (HCC) Atrial fibrillation documented in this encounter [facility] note* Diagnosis Onset Date Resolution Status Chronic anticoagulation acut e TIA (transient ischemic attack) acute CAD (coronary artery disease) [facility] Work Phone: Evaluation note* Diagnosis Onset Date Resolution Status Chronic anticoagulation acut e Stroke-like symptoms acute TIA (transient ischemic attack) acute CAD (coronary artery disease) [facility] Work Phone: Evaluation note* Diagnosis Hospital discharge follow-up- Primary Other follow-up examination Encounter for immunization Need for other specified prophylactic vaccination against single bacterial disease TIA (transient ischemic attack) Unspecified transient cerebral ischemia Thyroid nodule Nontoxic uninodular goiter Essential hypertension, benign Paroxysmal atrial fibrillation (HCC) Atrial fibrillation Atherosclerosis of coronary artery without angina pectoris, unspecified vessel or lesion type, unspecified whether [place] or transplanted heart documented in this encounter [facility] note* 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) 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 of anticoagulants Paroxysmal atrial fibrillation (HCC) Atrial fibrillation documented in this encounter [facility] note* 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) 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 Paroxysmal atrial fibrillation (HCC) Atrial fibrillation documented in this encounter [facility] note* Diagnosis alf current use of anticoagulant- Primary Long-term (current) use of anticoagulants Paroxysmal atrial fibrillation (HCC) Atrial fibrillation documented in this encounter [facility] note* Diagnosis Encounter for Medicare annual wellness exam- Primary Routine general medical examination at a [facility] facility Paroxysmal atrial fibrillation (HCC) Atrial fibrillation Essential hypertension, benign Hyperlipidemia, unspecified hyperlipidemia type documented in this encounter [facility]* Diagnosis alf current use of anticoagulant- Primary Long-term (current) use of anticoagulants Paroxysmal atrial fibrillation (HCC) Atrial fibrillation documented in this encounter [facility] note* Diagnosis alf current use of anticoagulant- Primary Long-term (current) use of anticoagulants Paroxysmal atrial fibrillation (HCC) Atrial fibrillation documented in this encounter [facility] note* 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) use of anticoagulants Paroxysmal atrial fibrillation (HCC) Atrial fibrillation [facility]* Diagnosis alf current use of anticoagulant- Primary Long-term (current) use of anticoagulants Paroxysmal atrial fibrillation (HCC) Atrial fibrillation documented in this encounter [facility] noteNo assessment information availableWUniversity [facility]als [facility] Work Phone: Evaluation note* 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) use of anticoagulants Paroxysmal atrial fibrillation (HCC) Atrial fibrillation documented in this encounter [facility] note* Diagnosis Cerebral infarction, unspecified mechanism (HCC)- Primary Generalized weakness Other malaise and fatigue Speech disturbance, unspecified type Hyperlipidemia, unspecified hyperlipidemia type Essential hypertension, benign Paroxysmal atrial fibrillation (HCC) Atrial fibrillation [facility]* Diagnosis Cerebral infarction, unspecified mechanism (HCC) documented in this encounter [facility] note* 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) use of anticoagulants Paroxysmal atrial fibrillation (HCC) Atrial fibrillation [facility]* Diagnosis Essential hypertension, benign- Primary Paroxysmal atrial fibrillation (HCC) Atrial fibrillation Atherosclerosis of coronary artery without angina pectoris, unspecified vessel or lesion type, unspecified whether [place] or transplanted heart Hyperlipidemia, unspecified hyperlipidemia type History of stroke with 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 Speech disturbance, unspecified type documented in this encounter [facility] note* Diagnosis Abnormal CBC- Primary Other abnormal blood chemistry documented in this encounter [facility] note* Diagnosis alf current use of anticoagulant- Primary Long-term (current) use of anticoagulants Paroxysmal atrial fibrillation (HCC) Atrial fibrillation documented in this encounter [facility] note* Diagnosis alf current use of anticoagulant- Primary Long-term (current) use of anticoagulants Paroxysmal atrial fibrillation (HCC) Atrial fibrillation documented in this encounter [facility] note* 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) use of anticoagulants Paroxysmal atrial fibrillation (HCC) Atrial fibrillation [facility]* 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) use of anticoagulants Paroxysmal atrial fibrillation (HCC) Atrial fibrillation documented in this encounter [facility] note* Diagnosis 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, psychotic disturbance, mood disturbance, or anxiety (HCC)- Primary Essential hypertension, benign Paroxysmal atrial fibrillation (HCC) Atrial fibrillation documented [facility] encounter [facility]* Diagnosis Edema of both lower legs- Primary [facility]* Diagnosis alf current use of anticoagulant- Primary Long-term (current) use of anticoagulants Paroxysmal atrial fibrillation (HCC) Atrial fibrillation documented [facility] this encounter [facility]* Diagnosis alf current use of anticoagulant Long-term (current) use of anticoagulants Paroxysmal atrial fibrillation (HCC) Atrial fibrillation documented in this encounter [facility]* Diagnosis Essential hypertension, benign- Primary Hyperlipidemia, unspecified hyperlipidemia type Edema of both lower legs Paroxysmal atrial fibrillation (HCC) Atrial fibrillation History of stroke with 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, psychotic disturbance, mood disturbance, or anxiety (HCC) Urinary frequency Abnormal CBC Other abnormal blood chemistry documented in this encounter [facility]* 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) use of anticoagulants Paroxysmal atrial fibrillation (HCC) Atrial fibrillation documented [facility] this encounter [facility]* Diagnosis alf current use of anticoagulant- Primary Long-term (current) use of anticoagulants Paroxysmal atrial fibrillation (HCC) Atrial fibrillation [facility]* Diagnosis Left hip pain Pain in joint, pelvic region and thigh documented in [facility]* 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) use of anticoagulants Paroxysmal atrial fibrillation (HCC) Atrial fibrillation [facility]* Diagnosis Acute right-sided low back pain, unspecified whether sciatica present documented in this encounter [facility]* Diagnosis Paroxysmal atrial fibrillation (HCC)- Primary Atrial fibrillation [facility]* Diagnosis alf current use of anticoagulant- Primary Long-term (current) use of anticoagulants Paroxysmal atrial fibrillation (HCC) Atrial fibrillation [facility] encounter [facility]* 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) use of anticoagulants Paroxysmal atrial fibrillation (HCC) Atrial fibrillation documented [facility] this encounter [facility]* Diagnosis Dementia, unspecified dementia severity, unspecified dementia type, unspecified whether behavioral, psychotic, or mood disturbance or anxiety (HCC)- Primary documented in this encounter [facility]* Diagnosis alf current use of anticoagulant- Primary Long-term (current) use of anticoagulants Paroxysmal atrial fibrillation (HCC) Atrial fibrillation [facility]* Diagnosis Dementia, unspecified dementia [...] and musculoskeletal systems documented in this encounter [facility] note* Diagnosis Cognitive impairment, mild, so stated Mild cognitive impairment, so stated documented in this encounter [facility] note* Diagnosis Essential hypertension, benign- Primary Hyperlipidemia, unspecified hyperlipidemia type Atherosclerosis of coronary artery without angina pectoris, unspecified vessel or lesion type, unspecified whether [place] or transplanted heart Paroxysmal atrial fibrillation (HCC) Atrial fibrillation Edema of both lower legs History of stroke with 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 Dementia, unspecified dementia severity, unspecified dementia type, unspecified whether behavioral, psychotic, or mood disturbance or anxiety (HCC) documented in this encounter [facility] note* 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) Paralysis agitans documented in this encounter [facility] note* Diagnosis Bursitis of right elbow, unspecified bursa- Primary documented in this encounter [facility] note* Diagnosis Moderate dementia without behavioral disturbance, psychotic disturbance, mood disturbance, or anxiety, unspecified dementia type (HCC)- Primary Hallucinations Screening for depression Encounter for screening examination for other mental health and behavioral disorders documented in this encounter [facility] for referral (narrative)* Diagnostic Procedure Only (Routine) - Authorized Specialty Diagnoses / Procedures Referred By Jennifer gomez Referred To Contact US IMAGING Diagnoses Thyroid nodule Procedures US THYROID/PARATHYROID US SOFT TISSUE HEAD & NECK REAL TIME IMGE DOCM Stas Mora MD [address] [place] [address] [facility] Referral ID Status Reason Start Date Expiration Date Visits Requested Visits Authorized [id number] Authorized Auto-Generat ed Referral 12/26/2021 01/25/2023 1 1 [facility] for referral (narrative)* Diagnostic Procedure Only (Urgent) - Closed Specialty Diagnoses / Procedures Referred By Contac t Referred To Contact XR IMAGING Diagnoses Left hip pain Procedures XR HIP GENERAL 3V PELV/AP/LAT LEFT RADEX HIP UNILATERAL WITH PELVIS 2-3 VIEWS Jenna Fitzpatrick APRN.ASSOCIATE PROFESSOR OF MUSICOLOGY [address] [place] [address] [place] [address] Referral ID Status Reason Start Date Expiration Date V isits Requested Visits Authorized [id number] Closed Auto-Generate d Referral 05/21/2022 06/20/2023 1 1 [facility] for referral (narrative)No reason for referral information availableW[facility] N[facility]* Diagnostic Procedure Only (Urgent) - Closed Specialty Diagnoses / Procedures Referred By Contac t Referred To Contact XR IMAGING Diagnoses Left hip pain Procedures XR HIP GENERAL 3V PELV/AP/LAT LEFT RADEX HIP UNILATERAL WITH PELVIS 2-3 VIEWS Jenna Fitzpatrick, JETHRO.ASSOCIATE PROFESSOR OF MUSICOLOGY [address] [place] [address] [place] [address] Referral ID Status Reason Start Date Expiration Date V isits Requested Visits Authorized [id number] Closed Auto-Generate d Referral 05/21/2022 06/20/2023 1 1 [facility] for visit Narrative* MRI/CT (Routine) - Closed Specialty Diagnoses / Procedures Referred By Contac t Referred To Contact MR IMAGING Diagnoses Cognitive impairment, mild, so stated Procedures MRI BRAIN W QUANT WO IVCON MRI BRAIN BRAIN STEM W/O CONTRAST MATERIAL Luciana Cisneros MD [address] [place] [address] Phone: tel: fax: [place] [address] Referral ID Status Reason Start Date Expiration Date V isits Requested Visits Authorized [id number] Closed Auto-Generate d Referral 05/11/2024 07/10/2024 1 1 [facility] Summary Purpose Family History No Family History [...] Will Yes December 21 6:17pm Power of Site Medical Director Yes December 21 6:17pm Name of Medical Power of Site Medical Director IRAJ HULL , DAUGHTER December 21, 2021 6:17pm Advance Directive Response Recorded Date/ Time Name of Medical Power of Site Medical Director Anabella Hull December 21, 2021 8:06pm Living Will Yes December 21 8:06pm Power of Site Medical Director Yes December 21 8:06pm Advance Directive Response Recorded Date/ Time Living Will Yes February 10, 023 3:17pm Power of Site Medical Director Yes February 10, 2023 3:17pm Name of Medical Power of Site Medical Director daughter-yomi hull February 10, 2023 3:17pm Advance Directive Response Recorded Date/ Time Do you have a Healthcare Power of Site Medical Director? Yes September 01, 2024 7:36am Name of Medical Power of Site Medical Director anabella hull September 01, 2024 7:36am Advance Directive Response Recorded Date/ Time Do you have a Healthcare Power of Site Medical Director? Yes September 01, 2024 12:00pm Name of Medical Power of Site Medical Director anabella hull September 01, 2024 12:00pm Chief [...] LAB WORK September 28, 2024 5:00a m [facility] LAB WORK September 29, 2024 5: 00am Admission H&P Exam September 30, 2024 5:50 pm [facility] LAB WORK October 05, 2024 5: 00am [facility] WORK October 06, 2024 5: 00am [...] LAB WORK September 28, 2024 5:00a m [facility] LAB WORK September 29, 2024 5: 00am Admission H&P Exam September 30, 2024 5:50 pm [facility] LAB WORK October 05, 2024 5: 00am [facility] WORK October 06, 2024 5: 00am [...] LAB WORK September 28, 2024 5:00a m [facility] LAB WORK September 29, 2024 5: 00am Admission H&P Exam September 30, 2024 5:50 pm [facility] LAB WORK October 05, 2024 5: 00am [facility] LAB WORK October 06, 2024 5: 00am [...] LAB WORK September 28, 2024 5:00a m [facility] LAB WORK September 29, 2024 5: 00am Admission H&P Exam September 30, 2024 5:50 pm [facility] LAB WORK October 05, 2024 5: 00am [facility] WORK October 06, 2024 5: 00am [...] LAB WORK September 28, 2024 5:00a m [facility] LAB WORK September 29, 2024 5: 00am Admission H&P Exam September 30, 2024 5:50 pm [facility] LAB WORK October 05, 2024 5: 00am [facility] LAB WORK October 06, 2024 5: 00am New Concern October 20, 2024 2:54 pm ADMISSION, H&P October 25, 2024 2:2 2pm LABWORK October 31, 2024 5: 00am LABWORK November 02, 2024 5: 00am [facility] LAB WORK November 23 5:00am ADMISSION H&P EXAM BY LABORER TIN CAN November 24, 2024 3:34pm LABWORK November 25, 2024 5:00am ADMISSION H&P/MONTHLY EXAM November 1:06pm [facility] LAB WORK November 30 5:00am [facility] LAB WORK December 14 5:35am [facility] LAB WORK December 21, 2024 5:45am Reason for Referral Specialty Diagnoses / Procedures Referred By Contac t Referred To Contact [facility] Diagnoses Shuffling gait Ambulatory dysfunction Balance disorder Procedures CONSULT TO PHYSICAL THERAPY PHYSICAL THERAPY EVALUATION [facility] 45 MINS Luciana Cisneros MD [address] [place] [address] [facility] [place] [address] [place] [address] Referral ID Status Reason Start Date Expiration Date Visits Requested Visits Authorized [id number] Pending Review Auto-Generat ed Referral 04/27/2024 04/27/2025 1 1 Specialty Diagnoses / Procedures Referred By Contac t Referred To Contact MR IMAGING Diagnoses Cognitive impairment, mild, so stated Procedures MRI BRAIN W QUANT WO IVCON MRI BRAIN BRAIN STEM W/O CONTRAST MATERIAL Luciana Cisneros MD [address] [place] [id number] [id number] Referral ID Status Reason Start Date Expiration Date Visits Requested Visits Authorized [id number] Pending Review Auto-Generat ed Referral 04/27/2024 05/27/2025 1 1 Specialty Diagnoses / Procedures Referred By Contac t Referred To Contact Gerontology Diagnoses Dementia, unspecified dementia severity, unspecified dementia type, unspecified whether behavioral, psychotic, or mood disturbance or anxiety (HCC) Procedures CONSULT TO GERIATRICS OFFICE/OUTPATIENT [facility] 60 MINUTES Stas Mora MD [address] [place] [id number] Referral ID Status Reason Start Date Expiration Date Visits Requested Visits Authorized [id number] Authorized PCP Requested Referral 04/25/2024 04/25/2025 1 1 Specialty Diagnoses / Procedures Referred By Contac t Referred To Contact MR IMAGING Diagnoses Cerebral infarction, unspecified mechanism (HCC) Procedures MRI BRAIN WO IVCON MRI BRAIN BRAIN STEM W/O CONTRAST MATERIAL Stas Mora MD [address] [place] [id number] [id number] Referral ID Status Reason Start Date Expiration Date Visits Requested Visits Authorized [id number] Pending Review Auto-Genera eli Referral Patient Cleared [...] section and content) DATE CREATED AUTHOR [facility]11/2017 [facility] DATE CREATED AUTHOR AUTHOR'S ORGANIZ ATION [facility] DATE CREATED AUTHOR AUTHOR'S ORGANIZ ATION 09/15/2017 [facility] DATE CREATED AUTHOR AUTHOR'S ORGANIZ ATION 08/12/2023 [facility] ([place]) DATE CREATED AUTHOR AUTHOR'S ORGANIZ ATION 05/24/2024 [facility] DATE CREATED AUTHOR AUTHOR'S ORGANIZ ATION 02/02/2025 [facility] DATE CREATED AUTHOR AUTHOR'S ORGANIZ ATION 02/02/2025 [facility] Source Comments (unrecognize d section and content) In the event this informatio n is protected by the Federal Confidentiality of Alcohol and Drug Abuse Patient Records regulations: The Federal rules restrict any use of the information to criminally investigate or prosecute any alcohol or drug abuse patient.[facility] the event this information is protected by the Federal Confidentiality of Alcohol and Drug Abuse Patient Records regulations: The Federal rules restrict any use of the information to criminally investigate or prosecute any alcohol or drug abuse patient.[facility] the event this information is protected by the Federal Confidentiality of Alcohol and Drug Abuse Patient Records regulations: The Federal rules restrict any use of the information to criminally investigate or prosecute any alcohol or drug abuse patient.[facility] the event this information is protected by the Federal Confidentiality of Alcohol and Drug Abuse Patient Records regulations: The Federal rules restrict any use of the information to criminally investigate or prosecute any alcohol or drug abuse patient.[facility] the event this information is protected by the Federal Confidentiality of Alcohol and Drug Abuse Patient Records regulations: The Federal rules restrict any use of the information to criminally investigate or prosecute any alcohol or drug abuse patient.[facility] the event this information is protected by the Federal Confidentiality of Alcohol and Drug Abuse Patient Records regulations: The Federal rules restrict any use of the information to criminally investigate or prosecute any alcohol or drug abuse patient.[facility] the event this information is protected by the Federal Confidentiality of Alcohol and Drug Abuse Patient Records regulations: The Federal rules restrict any use of the information to criminally investigate or prosecute any alcohol or drug abuse patient.[facility] the event this information is protected by the Federal Confidentiality of Alcohol and Drug Abuse Patient Records regulations: The Federal rules restrict any use of the information to criminally investigate or prosecute any alcohol or drug abuse patient.[facility] the event this information is protected by the Federal Confidentiality of Alcohol and Drug Abuse Patient Records regulations: The Federal rules restrict any use of the information to criminally investigate or prosecute any alcohol or drug abuse patient.[facility] the event this information is protected by the Federal Confidentiality of Alcohol and Drug Abuse Patient Records regulations: The Federal rules restrict any use of the information to criminally investigate or prosecute any alcohol or drug abuse patient.[facility] the event this information is protected by the Federal Confidentiality of Alcohol and Drug Abuse Patient Records regulations: The Federal rules restrict any use of the information to criminally investigate or prosecute any alcohol or drug abuse patient.[facility] the event this information is protected by the Federal Confidentiality of Alcohol and Drug Abuse Patient Records regulations: The Federal rules restrict any use of the information to criminally investigate or prosecute any alcohol or drug abuse patient.[facility] the event this information is protected by the Federal Confidentiality of Alcohol and Drug Abuse Patient Records regulations: The Federal rules restrict any use of the information to criminally investigate or prosecute any alcohol or drug abuse patient.[facility]edo[facility] the event this information is protected by the Federal Confidentiality of Alcohol and Drug Abuse Patient Records regulations: The Federal rules restrict any use of the information to criminally investigate or prosecute any alcohol or drug abuse patient.[facility] the event this information is protected by the Federal Confidentiality of Alcohol and Drug Abuse Patient Records regulations: The Federal rules restrict any use of the information to criminally investigate or prosecute any alcohol or drug abuse patient.[facility] the event this information is protected by the Federal Confidentiality of Alcohol and Drug Abuse Patient Records regulations: The Federal rules restrict any use of the information to criminally investigate or prosecute any alcohol or drug abuse patient.[facility]edo[facility] the event this information is protected by the Federal Confidentiality of Alcohol and Drug Abuse Patient Records regulations: The Federal rules restrict any use of the information to criminally investigate or prosecute any alcohol or drug abuse patient.[facility]edo[facility] the event this information is protected by the Federal Confidentiality of Alcohol and Drug Abuse Patient Records regulations: The Federal rules restrict any use of the information to criminally investigate or prosecute any alcohol or drug abuse patient.[facility]edo[facility] the event this information is protected by the Federal Confidentiality of Alcohol and Drug Abuse Patient Records regulations: The Federal rules restrict any use of the information to criminally investigate or prosecute any alcohol or drug abuse patient.[facility]edo[facility] the event this information is protected by the Federal Confidentiality of Alcohol and Drug Abuse Patient Records regulations: The Federal rules restrict any use of the information to criminally investigate or prosecute any alcohol or drug abuse patient.[facility]edo[facility] the event this information is protected by the Federal Confidentiality of Alcohol and Drug Abuse Patient Records regulations: The Federal rules restrict any use of the information to criminally investigate or prosecute any alcohol or drug abuse patient.[facility]edo[facility] the event this information is protected by the Federal Confidentiality of Alcohol and Drug Abuse Patient Records regulations: The Federal rules restrict any use of the information to criminally investigate or prosecute any alcohol or drug abuse patient.[facility] the event this information is protected by the Federal Confidentiality of Alcohol and Drug Abuse Patient Records regulations: The Federal rules restrict any use of the information to criminally investigate or prosecute any alcohol or drug abuse patient.[facility] the event this information is protected by the Federal Confidentiality of Alcohol and Drug Abuse Patient Records regulations: The Federal rules restrict any use of the information to criminally investigate or prosecute any alcohol or drug abuse patient.[facility]edo[facility] the event this information is protected by the Federal Confidentiality of Alcohol and Drug Abuse Patient Records regulations: The Federal rules restrict any use of the information to criminally investigate or prosecute any alcohol or drug abuse patient.[facility]edo[facility] the event this information is protected by the Federal Confidentiality of Alcohol and Drug Abuse Patient Records regulations: The Federal rules restrict any use of the information to criminally investigate or prosecute any alcohol or drug abuse patient.[facility] the event this information is protected by the Federal Confidentiality of Alcohol and Drug Abuse Patient Records regulations: The Federal rules restrict any use of the information to criminally investigate or prosecute any alcohol or drug abuse patient.[facility]edo[facility] the event this information is protected by the Federal Confidentiality of Alcohol and Drug Abuse Patient Records regulations: The Federal rules restrict any use of the information to criminally investigate or prosecute any alcohol or drug abuse patient.[facility]edo[facility] the event this information is protected by the Federal Confidentiality of Alcohol and Drug Abuse Patient Records regulations: The Federal rules restrict any use of the information to criminally investigate or prosecute any alcohol or drug abuse patient.[facility]edoIn the event this information is protected by the Federal Confidentiality of Alcohol and Drug Abuse Patient Records regulations: The Federal rules restrict any use of the information to criminally investigate or prosecute any alcohol or drug abuse patient.[facility] the event this information is protected by the Federal Confidentiality of Alcohol and Drug Abuse Patient Records regulations: The Federal rules restrict any use of the information to criminally investigate or prosecute any alcohol or drug abuse patient.[facility] the event this information is protected by the Federal Confidentiality of Alcohol and Drug Abuse Patient Records regulations: The Federal rules restrict any use of the information to criminally investigate or prosecute any alcohol or drug abuse patient.[facility]edoIn the event this information is protected by the Federal Confidentiality of Alcohol and Drug Abuse Patient Records regulations: The Federal rules restrict any use of the information to criminally investigate or prosecute any alcohol or drug abuse patient.[facility] the event this information is protected by the Federal Confidentiality of Alcohol and Drug Abuse Patient Records regulations: The Federal rules restrict any use of the information to criminally investigate or prosecute any alcohol or drug abuse patient.[facility] the event this information is protected by the Federal Confidentiality of Alcohol and Drug Abuse Patient Records regulations: The Federal rules restrict any use of the information to criminally investigate or prosecute any alcohol or drug abuse patient.[facility]edoIn the event this information is protected by the Federal Confidentiality of Alcohol and Drug Abuse Patient Records regulations: The Federal rules restrict any use of the information to criminally investigate or prosecute any alcohol or drug abuse patient.[facility]In the event this information is protected by the Federal Confidentiality of Alcohol and Drug Abuse Patient Records regulations: The Federal rules restrict any use of the information to criminally investigate or prosecute any alcohol or drug abuse patient.[facility]In the event this information is protected by the Federal Confidentiality of Alcohol and Drug Abuse Patient Records regulations: The Federal rules restrict any use of the information to criminally investigate or prosecute any alcohol or drug abuse patient.[facility]edoIn the event this information is protected by the Federal Confidentiality of Alcohol and Drug Abuse Patient Records regulations: The Federal rules restrict any use of the information to criminally investigate or prosecute any alcohol or drug abuse patient.[facility]edoIn the event this information is protected by the Federal Confidentiality of Alcohol and Drug Abuse Patient Records regulations: The Federal rules restrict any use of the information to criminally investigate or prosecute any alcohol or drug abuse patient.[facility]edoIn the event this information is protected by the Federal Confidentiality of Alcohol and Drug Abuse Patient Records regulations: The Federal rules restrict any use of the information to criminally investigate or prosecute any alcohol or drug abuse patient.[facility]edoIn the event this information is protected by the Federal Confidentiality of Alcohol and Drug Abuse Patient Records regulations: The Federal rules restrict any use of the information to criminally investigate or prosecute any alcohol or drug abuse patient.[facility]edoIn the event this information is protected by the Federal Confidentiality of Alcohol and Drug Abuse Patient Records regulations: The Federal rules restrict any use of the information to criminally investigate or prosecute any alcohol or drug abuse patient.[facility]edoIn the event this information is protected by the Federal Confidentiality of Alcohol and Drug Abuse Patient Records regulations: The Federal rules restrict any use of the information to criminally investigate or prosecute any alcohol or drug abuse patient.[facility]edoIn the event this information is protected by the Federal Confidentiality of Alcohol and Drug Abuse Patient Records regulations: The Federal rules restrict any use of the information to criminally investigate or prosecute any alcohol or drug abuse patient.[facility]edoIn the event this information is protected by the Federal Confidentiality of Alcohol and Drug Abuse Patient Records regulations: The Federal rules restrict any use of the information to criminally investigate or prosecute any alcohol or drug abuse patient.[facility]edoIn the event this information is protected by the Federal Confidentiality of Alcohol and Drug Abuse Patient Records regulations: The Federal rules restrict any use of the information to criminally investigate or prosecute any alcohol or drug abuse patient.[facility]edoIn the event this information is protected by the Federal Confidentiality of Alcohol and Drug Abuse Patient Records regulations: The Federal rules restrict any use of the information to criminally investigate or prosecute any alcohol or drug abuse patient.[facility]edoIn the event this information is protected by the Federal Confidentiality of Alcohol and Drug Abuse Patient Records regulations: The Federal rules restrict any use of the information to criminally investigate or prosecute any alcohol or drug abuse patient.[facility]edoIn the event this information is protected by the Federal Confidentiality of Alcohol and Drug Abuse Patient Records regulations: The Federal rules restrict any use of the information to criminally investigate or prosecute any alcohol or drug abuse patient.[facility]edoIn the event this information is protected by the Federal Confidentiality of Alcohol and Drug Abuse Patient Records regulations: The Federal rules restrict any use of the information to criminally investigate or prosecute any alcohol or drug abuse patient.[facility]edoIn the event this information is protected by the Federal Confidentiality of Alcohol and Drug Abuse Patient Records regulations: The Federal rules restrict any use of the information to criminally investigate or prosecute any alcohol or drug abuse patient.[facility]edoIn the event this information is protected by the Federal Confidentiality of Alcohol and Drug Abuse Patient Records regulations: The Federal rules restrict any use of the information to criminally investigate or prosecute any alcohol or drug abuse patient.[facility] the event this information is protected by the Federal Confidentiality of Alcohol and Drug Abuse Patient Records regulations: The Federal rules restrict any use of the information to criminally investigate or prosecute any alcohol or drug abuse patient.[facility]edo[facility] the event this information is protected by the Federal Confidentiality of Alcohol and Drug Abuse Patient Records regulations: The Federal rules restrict any use of the information to criminally investigate or prosecute any alcohol or drug abuse patient.[facility]In the event this information is protected by the Federal Confidentiality of Alcohol and Drug Abuse Patient Records regulations: The Federal rules restrict any use of the information to criminally investigate or prosecute any alcohol or drug abuse patient.[facility]edoIn the event this information is protected by the Federal Confidentiality of Alcohol and Drug Abuse Patient Records regulations: The Federal rules restrict any use of the information to criminally investigate or prosecute any alcohol or drug abuse patient.[facility]edoIn the event this information is protected by the Federal Confidentiality of Alcohol and Drug Abuse Patient Records regulations: The Federal rules restrict any use of the information to criminally investigate or prosecute any alcohol or drug abuse patient.[facility]edoIn the event this information is protected by the Federal Confidentiality of Alcohol and Drug Abuse Patient Records regulations: The Federal rules restrict any use of the information to criminally investigate or prosecute any alcohol or drug abuse patient.[facility]edoIn the event this information is protected by the Federal Confidentiality of Alcohol and Drug Abuse Patient Records regulations: The Federal rules restrict any use of the information to criminally investigate or prosecute any alcohol or drug abuse patient.[facility]edoIn the event this information is protected by the Federal Confidentiality of Alcohol and Drug Abuse Patient Records regulations: The Federal rules restrict any use of the information to criminally investigate or prosecute any alcohol or drug abuse patient.[facility]edoIn the event this information is protected by the Federal Confidentiality of Alcohol and Drug Abuse Patient Records regulations: The Federal rules restrict any use of the information to criminally investigate or prosecute any alcohol or drug abuse patient.[facility]edoIn the event this information is protected by the Federal Confidentiality of Alcohol and Drug Abuse Patient Records regulations: The Federal rules restrict any use of the information to criminally investigate or prosecute any alcohol or drug abuse patient.[facility]edoIn the event this information is protected by the Federal Confidentiality of Alcohol and Drug Abuse Patient Records regulations: The Federal rules restrict any use of the information to criminally investigate or prosecute any alcohol or drug abuse patient.[facility]edoIn the event this information is protected by the Federal Confidentiality of Alcohol and Drug Abuse Patient Records regulations: The Federal rules restrict any use of the information to criminally investigate or prosecute any alcohol or drug abuse patient.[facility]edoIn the event this information is protected by the Federal Confidentiality of Alcohol and Drug Abuse Patient Records regulations: The Federal rules restrict any use of the information to criminally investigate or prosecute any alcohol or drug abuse patient.[facility]edoIn the event this information is protected by the Federal Confidentiality of Alcohol and Drug Abuse Patient Records regulations: The Federal rules restrict any use of the information to criminally investigate or prosecute any alcohol or drug abuse patient.[facility]edoIn the event this information is protected by the Federal Confidentiality of Alcohol and Drug Abuse Patient Records regulations: The Federal rules restrict any use of the information to criminally investigate or prosecute any alcohol or drug abuse patient.[facility]edoIn the event this information is protected by the Federal Confidentiality of Alcohol and Drug Abuse Patient Records regulations: The Federal rules restrict any use of the information to criminally investigate or prosecute any alcohol or drug abuse patient.[facility]edoIn the event this information is protected by the Federal Confidentiality of Alcohol and Drug Abuse Patient Records regulations: The Federal rules restrict any use of the information to criminally investigate or prosecute any alcohol or drug abuse patient.[facility]edoIn the event this information is protected by the Federal Confidentiality of Alcohol and Drug Abuse Patient Records regulations: The Federal rules restrict any use of the information to criminally investigate or prosecute any alcohol or drug abuse patient.[facility]edoIn the event this information is protected by the Federal Confidentiality of Alcohol and Drug Abuse Patient Records regulations: The Federal rules restrict any use of the information to criminally investigate or prosecute any alcohol or drug abuse patient.[facility]edoIn the event this information is protected by the Federal Confidentiality of Alcohol and Drug Abuse Patient Records regulations: The Federal rules restrict any use of the information to criminally investigate or prosecute any alcohol or drug abuse patient.[facility]edoIn the event this information is protected by the Federal Confidentiality of Alcohol and Drug Abuse Patient Records regulations: The Federal rules restrict any use of the information to criminally investigate or prosecute any alcohol or drug abuse patient.[facility]edoIn the event this information is protected by the Federal Confidentiality of Alcohol and Drug Abuse Patient Records regulations: The Federal rules restrict any use of the information to criminally investigate or prosecute any alcohol or drug abuse patient.[facility]edoIn the event this information is protected by the Federal Confidentiality of Alcohol and Drug Abuse Patient Records regulations: The Federal rules restrict any use of the information to criminally investigate or prosecute any alcohol or drug abuse patient.[facility]edoIn the event this information is protected by the Federal Confidentiality of Alcohol and Drug Abuse Patient Records regulations: The Federal rules restrict any use of the information to criminally investigate or prosecute any alcohol or drug abuse patient.[facility]edoIn the event this information is protected by the Federal Confidentiality of Alcohol and Drug Abuse Patient Records regulations: The Federal rules restrict any use of the information to criminally investigate or prosecute any alcohol or drug abuse patient.[facility]edoIn the event this information is protected by the Federal Confidentiality of Alcohol and Drug Abuse Patient Records regulations: The Federal rules restrict any use of the information to criminally investigate or prosecute any alcohol or drug abuse patient.[facility]edoIn the event this information is protected by the Federal Confidentiality of Alcohol and Drug Abuse Patient Records regulations: The Federal rules restrict any use of the information to criminally investigate or prosecute any alcohol or drug abuse patient.[facility]edoIn the event this information is protected by the Federal Confidentiality of Alcohol and Drug Abuse Patient Records regulations: The Federal rules restrict any use of the information to criminally investigate or prosecute any alcohol or drug abuse patient.[facility]edoIn the event this information is protected by the Federal Confidentiality of Alcohol and Drug Abuse Patient Records regulations: The Federal rules restrict any use of the information to criminally investigate or prosecute any alcohol or drug abuse patient.[facility]edoIn the event this information is protected by the Federal Confidentiality of Alcohol and Drug Abuse Patient Records regulations: The Federal rules restrict any use of the information to criminally investigate or prosecute any alcohol or drug abuse patient.[facility]edoIn the event this information is protected by the Federal Confidentiality of Alcohol and Drug Abuse Patient Records regulations: The Federal rules restrict any use of the information to criminally investigate or prosecute any alcohol or drug abuse patient.[facility]edoIn the event this information is protected by the Federal Confidentiality of Alcohol and Drug Abuse Patient Records regulations: The Federal rules restrict any use of the information to criminally investigate or prosecute any alcohol or drug abuse patient.[facility]edoIn the event this information is protected by the Federal Confidentiality of Alcohol and Drug Abuse Patient Records regulations: The Federal rules restrict any use of the information to criminally investigate or prosecute any alcohol or drug abuse patient.[facility]edoIn the event this information is protected by the Federal Confidentiality of Alcohol and Drug Abuse Patient Records regulations: The Federal rules restrict any use of the information to criminally investigate or prosecute any alcohol or drug abuse patient.[facility]edoIn the event this information is protected by the Federal Confidentiality of Alcohol and Drug Abuse Patient Records regulations: The Federal rules restrict any use of the information to criminally investigate or prosecute any alcohol or drug abuse patient.[facility]edoIn the event this information is protected by the Federal Confidentiality of Alcohol and Drug Abuse Patient Records regulations: The Federal rules restrict any use of the information to criminally investigate or prosecute any alcohol or drug abuse patient.[facility]edoIn the event this information is protected by the Federal Confidentiality of Alcohol and Drug Abuse Patient Records regulations: The Federal rules restrict any use of the information to criminally investigate or prosecute any alcohol or drug abuse patient.[facility]edoIn the event this information is protected by the Federal Confidentiality of Alcohol and Drug Abuse Patient Records regulations: The Federal rules restrict any use of the information to criminally investigate or prosecute any alcohol or drug abuse patient.[facility]edoIn the event this information is protected by the Federal Confidentiality of Alcohol and Drug Abuse Patient Records regulations: The Federal rules restrict any use of the information to criminally investigate or prosecute any alcohol or drug abuse patient.[facility]edoIn the event this information is protected by the Federal Confidentiality of Alcohol and Drug Abuse Patient Records regulations: The Federal rules restrict any use of the information to criminally investigate or prosecute any alcohol or drug abuse patient.[facility]edoIn the event this information is protected by the Federal Confidentiality of Alcohol and Drug Abuse Patient Records regulations: The Federal rules restrict any use of the information to criminally investigate or prosecute any alcohol or drug abuse patient.[facility]edoIn the event this information is protected by the Federal Confidentiality of Alcohol and Drug Abuse Patient Records regulations: The Federal rules restrict any use of the information to criminally investigate or prosecute any alcohol or drug abuse patient.[facility]edoIn the event this information is protected by the Federal Confidentiality of Alcohol and Drug Abuse Patient Records regulations: The Federal rules restrict any use of the information to criminally investigate or prosecute any alcohol or drug abuse patient.[facility]edoIn the event this information is protected by the Federal Confidentiality of Alcohol and Drug Abuse Patient Records regulations: The Federal rules restrict any use of the information to criminally investigate or prosecute any alcohol or drug abuse patient.[facility]edoIn the event this information is protected by the Federal Confidentiality of Alcohol and Drug Abuse Patient Records regulations: The Federal rules restrict any use of the information to criminally investigate or prosecute any alcohol or drug abuse patient.[facility]edoIn the event this information is protected by the Federal Confidentiality of Alcohol and Drug Abuse Patient Records regulations: The Federal rules restrict any use of the information to criminally investigate or prosecute any alcohol or drug abuse patient.[facility]edoIn the event this information is protected by the Federal Confidentiality of Alcohol and Drug Abuse Patient Records regulations: The Federal rules restrict any use of the information to criminally investigate or prosecute any alcohol or drug abuse patient.[facility]edoIn the event this information is protected by the Federal Confidentiality of Alcohol and Drug Abuse Patient Records regulations: The Federal rules restrict any use of the information to criminally investigate or prosecute any alcohol or drug abuse patient.[facility]edoIn the event this information is protected by the Federal Confidentiality of Alcohol and Drug Abuse Patient Records regulations: The Federal rules restrict any use of the information to criminally investigate or prosecute any alcohol or drug abuse patient.[facility]edoIn the event this information is protected by the Federal Confidentiality of Alcohol and Drug Abuse Patient Records regulations: The Federal rules restrict any use of the information to criminally investigate or prosecute any alcohol or drug abuse patient.[facility]edoIn the event this information is protected by the Federal Confidentiality of Alcohol and Drug Abuse Patient Records regulations: The Federal rules restrict any use of the information to criminally investigate or prosecute any alcohol or drug abuse patient.[facility]edoIn the event this information is protected by the Federal Confidentiality of Alcohol and Drug Abuse Patient Records regulations: The Federal rules restrict any use of the information to criminally investigate or prosecute any alcohol or drug abuse patient.[facility]edoIn the event this information is protected by the Federal Confidentiality of Alcohol and Drug Abuse Patient Records regulations: The Federal rules restrict any use of the information to criminally investigate or prosecute any alcohol or drug abuse patient.[facility]edoIn the event this information is protected by the Federal Confidentiality of Alcohol and Drug Abuse Patient Records regulations: The Federal rules restrict any use of the information to criminally investigate or prosecute any alcohol or drug abuse patient.[facility]edoIn the event this information is protected by the Federal Confidentiality of Alcohol and Drug Abuse Patient Records regulations: The Federal rules restrict any use of the information to criminally investigate or prosecute any alcohol or drug abuse patient.[facility]edoIn the event this information is protected by the Federal Confidentiality of Alcohol and Drug Abuse Patient Records regulations: The Federal rules restrict any use of the information to criminally investigate or prosecute any alcohol or drug abuse patient.[facility]edoIn the event this information is protected by the Federal Confidentiality of Alcohol and Drug Abuse Patient Records regulations: The Federal rules restrict any use of the information to criminally investigate or prosecute any alcohol or drug abuse patient.[facility]edoIn the event this information is protected by the Federal Confidentiality of Alcohol and Drug Abuse Patient Records regulations: The Federal rules restrict any use of the information to criminally investigate or prosecute any alcohol or drug abuse patient.[facility]edoIn the event this information is protected by the Federal Confidentiality of Alcohol and Drug Abuse Patient Records regulations: The Federal rules restrict any use of the information to criminally investigate or prosecute any alcohol or drug abuse patient.[facility]edoIn the event this information is protected by the Federal Confidentiality of Alcohol and Drug Abuse Patient Records regulations: The Federal rules restrict any use of the information to criminally investigate or prosecute any alcohol or drug abuse patient.[facility]edoIn the event this information is protected by the Federal Confidentiality of Alcohol and Drug Abuse Patient Records regulations: The Federal rules restrict any use of the information to criminally investigate or prosecute any alcohol or drug abuse patient.[facility]edoIn the event this information is protected by the Federal Confidentiality of Alcohol and Drug Abuse Patient Records regulations: The Federal rules restrict any use of the information to criminally investigate or prosecute any alcohol or drug abuse patient.[facility]edoIn the event this information is protected by the Federal Confidentiality of Alcohol and Drug Abuse Patient Records regulations: The Federal rules restrict any use of the information to criminally investigate or prosecute any alcohol or drug abuse patient.[facility]edoIn the event this information is protected by the Federal Confidentiality of Alcohol and Drug Abuse Patient Records regulations: The Federal rules restrict any use of the information to criminally investigate or prosecute any alcohol or drug abuse patient.[facility]edoIn the event this information is protected by the Federal Confidentiality of Alcohol and Drug Abuse Patient Records regulations: The Federal rules restrict any use of the information to criminally investigate or prosecute any alcohol or drug abuse patient.[facility]edoIn the event this information is protected by the Federal Confidentiality of Alcohol and Drug Abuse Patient Records regulations: The Federal rules restrict any use of the information to criminally investigate or prosecute any alcohol or drug abuse patient.[facility]edoIn the event this information is protected by the Federal Confidentiality of Alcohol and Drug Abuse Patient Records regulations: The Federal rules restrict any use of the information to criminally investigate or prosecute any alcohol or drug abuse patient.[facility]edoIn the event this information is protected by the Federal Confidentiality of Alcohol and Drug Abuse Patient Records regulations: The Federal rules restrict any use of the information to criminally investigate or prosecute any alcohol or drug abuse patient.[facility]edoIn the event this information is protected by the Federal Confidentiality of Alcohol and Drug Abuse Patient Records regulations: The Federal rules restrict any use of the information to criminally investigate or prosecute any alcohol or drug abuse patient.[facility]edoIn the event this information is protected by the Federal Confidentiality of Alcohol and Drug Abuse Patient Records regulations: The Federal rules restrict any use of the information to criminally investigate or prosecute any alcohol or drug abuse patient.[facility]edoIn the event this information is protected by the Federal Confidentiality of Alcohol and Drug Abuse Patient Records regulations: The Federal rules restrict any use of the information to criminally investigate or prosecute any alcohol or drug abuse patient.[facility]edoIn the event this information is protected by the Federal Confidentiality of Alcohol and Drug Abuse Patient Records regulations: The Federal rules restrict any use of the information to criminally investigate or prosecute any alcohol or drug abuse patient.[facility]edoIn the event this information is protected by the Federal Confidentiality of Alcohol and Drug Abuse Patient Records regulations: The Federal rules restrict any use of the information to criminally investigate or prosecute any alcohol or drug abuse patient.[facility]edoIn the event this information is protected by the Federal Confidentiality of Alcohol and Drug Abuse Patient Records regulations: The Federal rules restrict any use of the information to criminally investigate or prosecute any alcohol or drug abuse patient.[facility]edoIn the event this information is protected by the Federal Confidentiality of Alcohol and Drug Abuse Patient Records regulations: The Federal rules restrict any use of the information to criminally investigate or prosecute any alcohol or drug abuse patient.[facility]edoIn the event this information is protected by the Federal Confidentiality of Alcohol and Drug Abuse Patient Records regulations: The Federal rules restrict any use of the information to criminally investigate or prosecute any alcohol or drug abuse patient.[facility]edoIn the event this information is protected by the Federal Confidentiality of Alcohol and Drug Abuse Patient Records regulations: The Federal rules restrict any use of the information to criminally investigate or prosecute any alcohol or drug abuse patient.[facility]edoIn the event this information is protected by the Federal Confidentiality of Alcohol and Drug Abuse Patient Records regulations: The Federal rules restrict any use of the information to criminally investigate or prosecute any alcohol or drug abuse patient.[facility]edoIn the event this information is protected by the Federal Confidentiality of Alcohol and Drug Abuse Patient Records regulations: The Federal rules restrict any use of the information to criminally investigate or prosecute any alcohol or drug abuse patient.[facility]edoIn the event this information is protected by the Federal Confidentiality of Alcohol and Drug Abuse Patient Records regulations: The Federal rules restrict any use of the information to criminally investigate or prosecute any alcohol or drug abuse patient.[facility]edoIn the event this information is protected by the Federal Confidentiality of Alcohol and Drug Abuse Patient Records regulations: The Federal rules restrict any use of the information to criminally investigate or prosecute any alcohol or drug abuse patient.[facility] Reason for Visit (unrecogniz ed section and [...] STEM W/O CONTRAST MATERIAL Stas Mora MD [address] [place] [address] [place] [address] Referral ID Status Reason Start Date Expiration Date V isits Requested Visits Authorized [id number] Closed Auto-Generat ed Referral Patient Cleared - [...] anxiety (HCC) Procedures CONSULT TO GERIATRICS OFFICE/OUTPATIENT [facility] 60 MINUTES Stas Mora MD [address] [place] [address] Referral ID Status Reason Start Date Expiration Date V isits Requested Visits Authorized [id number] Closed PCP Requested Referral 04/25/2024 04/25/2025 1 [...] Care Teams (unrecognized sec tion and content) [employer] Relationship Specialty Start Date End Date Stas Mora MD [address] [place] [address] PCP - General 08/02/08, Pharmacist [id number] [facility] [place] [address] Pharmacist Pharmacy 10/19/19 [employer]ancer Relationship Specialty Start Date End Date Stas Mora MD [address] [place] [address] PCP - General 08/02/08, Pharmacist [id number] [facility] [place] [address] Pharmacist Pharmacy 10/19/19 [employer]ancer Relationship Specialty Start Date End Date Stas Mora MD [address] [place] [address] PCP - General 08/02/08, Pharmacist [phone] [facility] [place] [address] Pharmacist Pharmacy 10/19/19 [employer] Balancer Relationship Specialty Start Date End Date Stas Mora MD [address] [place] [address] PCP - General 08/02/08, Pharmacist [id number] [facility] [place] [address] Pharmacist Pharmacy 10/19/19 [employer]ancer Relationship Specialty Start Date End Date Stas Mora MD [address] [place] [address] PCP - General 08/02/08, Pharmacist [id number] [facility] [place] [address] Pharmacist Pharmacy 10/19/19 [employer] Balancer Relationship Specialty Start Date End Date Stas Mora MD [address] [place] [address] PCP - General 08/02/08, Pharmacist [phone] [facility] [place] [place] [address] Pharmacist Pharmacy 10/19/19 Crankshaft Balancer Relationship Specialty Start Date End Date Stas Mora MD [address] [place] [address] PCP - General 08/02/08, Pharmacist [phone] [facility] [place] [address] Pharmacist Pharmacy 10/19/19 Crankshaft Balancer Relationship Specialty Start Date End Date Stas Mora MD [address] [place] [address] PCP - General 08/02/08, Pharmacist [phone] [facility] [place] [place] [address] Pharmacist Pharmacy 10/19/19 Crankshaft Balancer Relationship Specialty Start Date End Date Stas Mora MD [address] [place] [address] PCP - General 08/02/08, Pharmacist [phone] [facility] [place] [address] Pharmacist Pharmacy 10/19/19 Crankshaft Balancer Relationship Specialty Start Date End Date Stas Mora MD [address] [place] [address] PCP - General 08/02/08, Pharmacist [phone] [facility] [place] [place] [address] Pharmacist Pharmacy 10/19/19 Crankshaft Balancer Relationship Specialty Start Date End Date Stas Mora MD [address] [place] [address] PCP - General 08/02/08, Pharmacist [phone] [facility] [place] [address] Pharmacist Pharmacy 10/19/19 Crankshaft Balancer Relationship Specialty Start Date End Date Stas Mora MD [address] [place] [address] PCP - General 08/02/08, Pharmacist [phone] [facility] [place] [place] [address] Pharmacist Pharmacy 10/19/19 Crankshaft Balancer Relationship Specialty Start Date End Date Stas Mora MD [address] [place] [address] PCP - General 08/02/08, Pharmacist [phone] [facility] [place] [address] Pharmacist Pharmacy 10/19/19 Crankshaft Balancer Relationship Specialty Start Date End Date Stas Mora MD [address] [place] [address] PCP - General 08/02/08, Pharmacist [phone] [facility] [place] [address] Pharmacist Pharmacy 10/19/19 Crankshaft Balancer Relationship Specialty Start Date End Date Stas Mora MD [address] [place] [address] PCP - General 08/02/08, Pharmacist [phone] [facility] [place] [address] Pharmacist Pharmacy 10/19/19 Crankshaft Balancer Relationship Specialty Start Date End Date Stas Mora MD [address] [place] [address] PCP - General 08/02/08, Pharmacist [phone] [facility] [place] [address] Pharmacist Pharmacy 10/19/19 Crankshaft Balancer Relationship Specialty Start Date End Date Stas Mora MD [address] [place] [address] PCP - General 08/02/08, Pharmacist [address] [place] [address] Pharmacist Pharmacy 10/19/19 Crankshaft Balancer Relationship Specialty Start Date End Date Stas Mora MD [address] [place] [address] PCP - General 08/02/08, Pharmacist [phone] [place] [address] Pharmacist Pharmacy 10/19/19 Crankshaft Balancer Relationship Specialty Start Date End Date Stas Mora MD [address] [place] [address] PCP - General 08/02/08, Pharmacist 44896 [place] [address] Pharmacist Pharmacy 10/19/19 Crankshaft Balancer Relationship Specialty Start Date End Date Stas Mora MD [address] [place] [address] PCP - General 08/02/08, Pharmacist [address] [place] [address] Pharmacist Pharmacy 10/19/19 Crankshaft Balancer Relationship Specialty Start Date End Date Stas Mora MD [address] [place] [address] PCP - General 08/02/08, Pharmacist [address] [place] [address] Pharmacist Pharmacy 10/19/19 Team Status: Active Member Role Status Dates Dr. Stas Mora MD Family Provider Active Dr. Stas Mora MD Primary Care Provider Active Team Status: Inactive Member Role Status Dates Dr. Stas Mora MD Primary Care Provider Active Dr. Brian Cunningham , DO Emergency Provider Active Crankshaft Balancer Relationship Specialty Start Date End Date Stas Mora MD [address] [place] [address] PCP - General 08/02/08, Pharmacist [phone] [facility] [place] [address] Pharmacist Pharmacy 10/19/19 Crankshaft Balancer Relationship Specialty Start Date End Date Stas Mora MD [address] [place] [address] PCP - General 08/02/08, Pharmacist [phone] [place] [address] Pharmacist Pharmacy 10/19/19 Crankshaft Balancer Relationship Specialty Start Date End Date Stas Mora MD [address] [place] [address] PCP - General 08/02/08, Pharmacist [phone] [place] [address] Pharmacist Pharmacy 10/19/19 Crankshaft Balancer Relationship Specialty Start Date End Date Stas Mora MD [address] [place] [address] PCP - General 08/02/08, Pharmacist [address]128 [place] [address] Pharmacist Pharmacy 10/19/19 Crankshaft Balancer Relationship Specialty Start Date End Date Stas Mora MD [address] [place] [address] PCP - General 08/02/08, Pharmacist [phone] [facility] [place] [address] Pharmacist Pharmacy 10/19/19 Crankshaft Balancer Relationship Specialty Start Date End Date Stas Mora MD [address] [place] [address] PCP - General 08/02/08, Pharmacist [address] [place] [address] Pharmacist Pharmacy 10/19/19 Crankshaft Balancer Relationship Specialty Start Date End Date Stas Mora MD [address] [place] [address] PCP - General 08/02/08, Pharmacist [address] [place] [address] Pharmacist Pharmacy 10/19/19 Crankshaft Balancer Relationship Specialty Start Date End Date Stas Mora MD [address] [place] [address] PCP - General 08/02/08, Pharmacist [address]367 [place] [address] Pharmacist Pharmacy 10/19/19 Crankshaft Balancer Relationship Specialty Start Date End Date Stas Mora MD [address] [place] [address] PCP - General 08/02/08, Pharmacist [address] [place] [address] Pharmacist Pharmacy 10/19/19 Crankshaft Balancer Relationship Specialty Start Date End Date Stas Mora MD [address] [place] [address] PCP - General 08/02/08, Pharmacist [address]643 [place] [address] Pharmacist Pharmacy 10/19/19 Crankshaft Balancer Relationship Specialty Start Date End Date Stas Moar MD [address] [place] [address] PCP - General 08/02/08, Pharmacist [phone] [facility] [place] [address] Pharmacist Pharmacy 10/19/19 Crankshaft Balancer Relationship Specialty Start Date End Date Stas Mora MD [address] [place] [address] PCP - General 08/02/08, Pharmacist [phone] [facility] [place] [address] Pharmacist Pharmacy 10/19/19 Crankshaft Balancer Relationship Specialty Start Date End Date Stas Mora MD [address] [place] [address] PCP - General 08/02/08, Pharmacist [address]92 [place] [address] Pharmacist Pharmacy 10/19/19 Crankshaft Balancer Relationship Specialty Start Date End Date Stas Mora MD [address] [place] [address] PCP - General 08/02/08, Pharmacist [phone] [place] [address] Pharmacist Pharmacy 10/19/19 Crankshaft Balancer Relationship Specialty Start Date End Date Stas Mora MD [address] [place] [address] PCP - General 08/02/08, Pharmacist [phone] [facility] [place] [address] Pharmacist Pharmacy 10/19/19 Crankshaft Balancer Relationship Specialty Start Date End Date Stas Mora MD [address] [place] [address] PCP - General 08/02/08, Pharmacist [phone] [facility] [place] [address] Pharmacist Pharmacy 10/19/19 Crankshaft Balancer Relationship Specialty Start Date End Date Stas Mora MD [address] [place] [address] PCP - General 08/02/08, Pharmacist [phone] [facility] [place] [address] Pharmacist Pharmacy 10/19/19 Crankshaft Balancer Relationship Specialty Start Date End Date Stas Mora MD [address] [place] [address] PCP - General 08/02/08, Pharmacist [phone] [facility] [place] [address] Pharmacist Pharmacy 10/19/19 Crankshaft Balancer Relationship Specialty Start Date End Date Stas Mora MD [address] [place] [address] PCP - General 08/02/08, Pharmacist [phone] [facility] [place] [address] Pharmacist Pharmacy 10/19/19 Crankshaft Balancer Relationship Specialty Start Date End Date Stas Mora MD [address] [place] [address] PCP - General 08/02/08, Pharmacist [phone] [facility] [place] [address] Pharmacist Pharmacy 10/19/19 Crankshaft Balancer Relationship Specialty Start Date End Date Stas Mora MD [address] [place] [address] PCP - General 08/02/08, Pharmacist [phone] [facility] [place] [address] Pharmacist Pharmacy 10/19/19 Crankshaft Balancer Relationship Specialty Start Date End Date Stas Mora MD [address] [place] [address] PCP - General 08/02/08, Pharmacist [address]02 [place] [address] Pharmacist Pharmacy 10/19/19 Jenna Fitzpatrick APRN.ASSOCIATE PROFESSOR OF MUSICOLOGY [address] [place] [address] Occupational Health And Safety Adviser [facility] 02/28/24 Crankshaft Balancer Relationship Specialty Start Date End Date Stas Mora MD [address] [place] [address] PCP - General 08/02/08, Pharmacist [address] [place] [address] Pharmacist Pharmacy 10/19/19 Jenna Fitzpatrick APRN.ASSOCIATE PROFESSOR OF MUSICOLOGY [address] [place] [address] Occupational Health And Safety Adviser Family [facility] 02/28/24 Elvis Kearney APRN.ASSOCIATE PROFESSOR OF MUSICOLOGY [address] [place] [address] Occupational Health And Safety Adviser [facility] 03/08/24 Crankshaft Balancer Relationship Specialty Start Date End Date Stas Mora MD [address] [place] [address] PCP - General 08/02/08, Pharmacist [address]652 [place] [address] Pharmacist Pharmacy 10/19/19 Jenna Fitzpatrick APRN.ASSOCIATE PROFESSOR OF MUSICOLOGY [address] [place] [address] Occupational Health And Safety Adviser Family [facility] 02/28/24 Elvis Kearney APRN.ASSOCIATE PROFESSOR OF MUSICOLOGY [address] [place] [address] Occupational Health And Safety Adviser Family [facility] 03/08/24 Crankshaft Balancer Relationship Specialty Start Date End Date Stas Mora MD [address] [place] [address] PCP - General 08/02/08, Pharmacist [address]27 [place] [address] Pharmacist Pharmacy 10/19/19 Jenna Fitzpatrick APRN.ASSOCIATE PROFESSOR OF MUSICOLOGY [address] [place] [address] Occupational Health And Safety Adviser Family Medicine 02/28/24 Elvis Kearney APRN.ASSOCIATE PROFESSOR OF MUSICOLOGY [address] [place] [address] Occupational Health And Safety Adviser [facility] 03/08/24 Crankshaft Balancer Relationship Specialty Start Date End Date Stas Mora MD [address] [place] [address] PCP - General 08/02/08, Pharmacist [address]646 [place] [address] Pharmacist Pharmacy 10/19/19 Jenna Fitzpatrick STRAPPER.ASSOCIATE PROFESSOR OF MUSICOLOGY [address] [place] [address] Occupational Health And Safety Adviser Family Medicine 02/28/24 Elvis Kearney APRN.ASSOCIATE PROFESSOR OF MUSICOLOGY [address] [place] [address] Occupational Health And Safety Adviser [facility] 03/08/24 Crankshaft Balancer Relationship Specialty Start Date End Date Stas Mora MD [address] [place] [address] PCP - General 08/02/08, Pharmacist [phone] [facility] [place] [address] Pharmacist Pharmacy 10/19/19 Jenna Fitzpatrick APRN.ASSOCIATE PROFESSOR OF MUSICOLOGY [address] [place] [address] Occupational Health And Safety Adviser Family Medicine 02/28/24 Elvis Kearney APRN.ASSOCIATE PROFESSOR OF MUSICOLOGY [address] [place] [address] [facility] 03/08/24 Crankshaft Balancer Relationship Specialty Start Date End Date Stas Mora MD [address] [place] [address] PCP - General 08/02/08, Pharmacist [address]30 [place] [address] Pharmacist Pharmacy 10/19/19 Jenna Fitzpatrick APRN.ASSOCIATE PROFESSOR OF MUSICOLOGY [address] [place] [address] Occupational Health And Safety Adviser Family [facility] 02/28/24 Elvis Kearney APRN.ASSOCIATE PROFESSOR OF MUSICOLOGY [address] [place] [address] Occupational Health And Safety Adviser [facility] 03/08/24 Crankshaft Balancer Relationship Specialty Start Date End Date Stas Mora MD [address] [place] [address] PCP - General 08/02/08, Pharmacist [phone] [facility] [place] [address] Pharmacist Pharmacy 10/19/19 Jenna Fitzpatrick APRN.ASSOCIATE PROFESSOR OF MUSICOLOGY [address] [place] [address] Occupational Health And Safety Adviser Family Medicine 02/28/24 Elvis Kearney APRN.ASSOCIATE PROFESSOR OF MUSICOLOGY [address] [place] [address] Occupational Health And Safety Adviser Family [facility] 03/08/24 Crankshaft Balancer Relationship Specialty Start Date End Date Stas Mora MD [address] [place] [address] PCP - General 08/02/08, Pharmacist [address]55 [place] [address] Pharmacist Pharmacy 10/19/19 Jenna Fitzpatrick APRN.ASSOCIATE PROFESSOR OF MUSICOLOGY [address] [place] [address] Occupational Health And Safety Adviser [facility] 02/28/24 Elvis Kearney APRN.ASSOCIATE PROFESSOR OF MUSICOLOGY [address] [place] [address] [facility] 03/08/24 Crankshaft Balancer Relationship Specialty Start Date End Date Stas Mora MD [address] [place] [address] PCP - General 08/02/08, Pharmacist [address] [place] [address] Pharmacist Pharmacy 10/19/19 Jenna Fitzpatrick APRN.ASSOCIATE PROFESSOR OF MUSICOLOGY [address] [place] [address] Occupational Health And Safety Adviser Family Medicine 02/28/24 Elvis Kearney APRN.ASSOCIATE PROFESSOR OF MUSICOLOGY [address] [facility] [place] [address] Occupational Health And Safety Adviser Family Medicine 03/08/24 Crankshaft Balancer Relationship Specialty Start Date End Date Stas Mora MD [address] [place] [address] PCP - General 08/02/08, Pharmacist [address] [place] [address] Pharmacist Pharmacy 10/19/19 Jenna Fitzpatrick STRAPPER.ASSOCIATE PROFESSOR OF MUSICOLOGY [address] [place] [address] Occupational Health And Safety Adviser Family Medicine 02/28/24 Elvis Kearney APRN.ASSOCIATE PROFESSOR OF MUSICOLOGY [address] [place] [address] Occupational Health And Safety Adviser [facility] 03/08/24 Crankshaft Balancer Relationship Specialty Start Date End Date Stas Mora MD [address] [place] [address] PCP - General 08/02/08, Pharmacist [address]58 [place] [address] Pharmacist Pharmacy 10/19/19 Jenna Fitzpatrick, STRAPPER.ASSOCIATE PROFESSOR OF MUSICOLOGY [address] [place] [address] Occupational Health And Safety Adviser Family [facility] 02/28/24 Elvis Kearney APRN.ASSOCIATE PROFESSOR OF MUSICOLOGY [address] [place] [address] Occupational Health And Safety Adviser Family [facility] 03/08/24 Crankshaft Balancer Relationship Specialty Start Date End Date Stas Mora MD [address] [place] [address] PCP - General 08/02/08, Pharmacist [address] [place] [address] Pharmacist Pharmacy 10/19/19 Jenna Fitzpatrick APRN.ASSOCIATE PROFESSOR OF MUSICOLOGY [address] [place] [address] Occupational Health And Safety Adviser Family [facility] 02/28/24 Elvis Kearney STRAPPER.ASSOCIATE PROFESSOR OF MUSICOLOGY [address] [place] [address] [facility] 03/08/24 Crankshaft Balancer Relationship Specialty Start Date End Date Stas Mora MD [address] [place] [address] PCP - General 08/02/08, Pharmacist [address]14 [place] [address] Pharmacist Pharmacy 10/19/19 Jenna Fitzpatrick STRAPPER.ASSOCIATE PROFESSOR OF MUSICOLOGY [address] [place] [address] [facility] 02/28/24 Elvis Kearney STRAPPER.ASSOCIATE PROFESSOR OF MUSICOLOGY [address] [place] [address] [facility] 03/08/24 Crankshaft Balancer Relationship Specialty Start Date End Date Stas Mora MD [address] [place] [address] PCP - General 08/02/08, Pharmacist [address] [place] [address] Pharmacist Pharmacy 10/19/19 Jenna Fitzpatrick, STRAPPER.ASSOCIATE PROFESSOR OF MUSICOLOGY [address] [place] [address] Occupational Health And Safety Adviser Family [facility] 02/28/24 Elvis Kearney APRN.ASSOCIATE PROFESSOR OF MUSICOLOGY [address] [place] [address] Occupational Health And Safety Adviser [facility] 03/08/24 Crankshaft Balancer Relationship Specialty Start Date End Date Stas Mora MD [address] [place] [address] PCP - General 08/02/08, Pharmacist [address]509 [place] [address] Pharmacist Pharmacy 10/19/19 Jenna Fitzpatrick APRN.ASSOCIATE PROFESSOR OF MUSICOLOGY [address] [place] [address] Occupational Health And Safety Adviser Family [facility] 02/28/24 Elvis Kearney STRAPPER.ASSOCIATE PROFESSOR OF MUSICOLOGY [address] [place] [address] Occupational Health And Safety Adviser Family [facility] 03/08/24 Crankshaft Balancer Relationship Specialty Start Date End Date Stas Mora MD [address] [place] [address] PCP - General 08/02/08, Pharmacist [address]251 [place] [address] Pharmacist Pharmacy 10/19/19 Jenna Fitzpatrick STRAPPER.ASSOCIATE PROFESSOR OF MUSICOLOGY [address] [place] [address] Occupational Health And Safety Adviser Family [facility] 02/28/24 Elvis Kearney APRN.ASSOCIATE PROFESSOR OF MUSICOLOGY [address] [place] [address] Occupational Health And Safety Adviser [facility] 03/08/24 Crankshaft Balancer Relationship Specialty Start Date End Date Stas Mora MD [address] [place] [address] PCP - General 08/02/08, Pharmacist [address]78 [place] [address] Pharmacist Pharmacy 10/19/19 Elvis Kearney APRN.ASSOCIATE PROFESSOR OF MUSICOLOGY [address] [place] [address] [facility] 03/08/24 Crankshaft Balancer Relationship Specialty Start Date End Date Stas Mora MD [address] [place] [address] PCP - General 08/02/08, Pharmacist [address]74 [place] [address] Pharmacist Pharmacy 10/19/19 Elvis Kearney APRN.ASSOCIATE PROFESSOR OF MUSICOLOGY [address] [place] [address] [facility] 03/08/24 Team Status: Active Member Role [...] Provider Active Sta rt: September 06, 2024 Crankshaft Balancer Relationship Specialty Start Date End Date Stas Mora MD [address] [place], [place] [address] PCP - General 08/02/08 13, Pharmacist [address]67 [place], [place] [address] Pharmacist Pharmacy 10/19/19 Elvis Kearney APRN.CNP [address] [place], [place] [address] Occupational Health And Safety Adviser [facility] 03/08/24 Team Status: Active Member [...] 2024 End: September 07, 2024 Halina Carmona LABORER TIN [employer], [employer]ER T[employer]-C Attending Provider Active Start: September 07, 2024 [...] 2024 End: September 08, 2024 Halina Carmona LABORER TIN [employer], LABORER [employer] CAN-C Attending Provider Active Start: September 08, 2024 [...] End: September 30, 2024 Halina Carmona NP [employer]-C Attending Provider Active Start: September 30, 2024 [...] 2024 End: October 20, 2024 Halina Carmona LABORER TIN CAN, LABORER T[employer] CAN-C Attending Provider Active Start: October 20, 2024 [...] 2024 End: September 30, 2024 Halina Carmona LABORER TIN CAN, LABORER [employer]IN CAN-C Attending Provider Active Start: September 30, 2024 [...] 2024 End: October 20, 2024 Halina Carmona LABORER TIN [employer], LABORER TIN CAN-C Attending Provider Active Start: October 20, 2024 [...] Status: Active Member Role/Relationship Status Dates Dr. Sats Mora MD Primary Care Provider Active Start: [...] 2024 End: September 30, 2024 Halina Carmona LABORER TIN [employer], LABORER [employer]IN CAN-C Attending physician Active Start: September 30, 2024 [...] End: October 20, 2024 Halina Carmona NP, [employer]ORER [employer]-C Attending physician Active Start: October 20, 2024 [...] End: November 24, 2024 Halina Carmona NP [employer]OR[employer]-C Attending physician Active Start: November 24, 2024 [...] BE BASED ON THE PRIMARY CLINICAL RECORDS. [employer] provides no warranty or guarantee of the accuracy or completeness of information in this document.
[2025-02-24 07:20] LABS: Hematocrit 35.3 % (40-54); Hemoglobin 11.6 g/dL (13.0-16.5); Immature Granulocytes Count 0.140 X10^3/uL (0.0-0.0); Mean Corp Hgb Conc 32.9 g/dL (32-36); Mean Corpuscular Volume 84.0 fL (80-94); Mean Platelet Vol. 9.8 fl (6.2-12.0); NRBC Flagged by Analyzer 0 % (0-5); POSITIVE DIFFERENTIAL YES; Platelet Count 262 K/mm3 (150-450); RBC Distribution Width CV 16.3 % (11.6-14.6); RBC Distribution Width SD 50.6 fl (35.1-43.9); Red Blood Count 4.20 M/mm3 (4.6-6.2); White Blood Count 20.8 K/mm3 (4.4-11.0)
[2025-02-24 07:35] LABS: Differential Indicated SCAN CRITERIA MET
[2025-02-24 08:07] LABS: Anion Gap 10 (5-15); BUN 26 mg/dL (4-19); BUN/Creat Ratio 41.4 RATIO (10-20); Calcium,Total 8.4 mg/dL (7.6-11.0); Carbon Dioxide 25.7 mmol/L (21.0-32.0); Chloride 104 mmol/L (98-108); Glucose 124 mg/dL (70-99); Potassium 3.4 mmol/L (3.3-5.1)
== END ==
LOC: OLS.WHLCAR 05:00
PROVIDERS: PCP Family Medicine; Visit Provider Internal Medicine
DX: J18.8 Other pneumonia, unspecified organism (principal); F03.918 Unspecified dementia, unspecified severity, with other behavioral disturbance; I48.91 Unspecified atrial fibrillation; I10 Essential (primary) hypertension; I25.10 Atherosclerotic heart disease of native coronary artery without angina pectoris
CPT/HCPCS: 36415; 80048; 85025

== ENCOUNTER → 2025-03-06 04:00 | Outpatient (REF) | payer MEDICARE, SELFPAY ==
--- OUTSIDE RECORDS SUMMARY | 2025-03-06 03:46 | XMS RPT_ITS | CCD ---
Author Organization [facility] Inform ion Partnership [facility] Care Team Providers Care Silk Trimmer Name Role Phone TEE, DARRELL E Unavailable [...] Dr. Stas Mora Primary Care Provider [phone] Dr. Inderjit Gillespie Emergency Provider Dr. Dirk [...] Unavailable STERLING LYNCH DO Attending Unavailable Tannhof DAIRY PROCESSING EQUIPMENT OPERATOR.HIGHER LEVEL TEACHING ASSISTANT, Jenna Unavailable Caio DAIRY PROCESSING EQUIPMENT OPERATOR.HIGHER LEVEL TEACHING ASSISTANT, Elvis Unavailable LUCIANA CISNEROS Referring Unavailable STAS MORA Primary Care Unavailable Tannhof DAIRY PROCESSING EQUIPMENT OPERATOR.HIGHER LEVEL TEACHING ASSISTANT, Jenna Unavailable Unavail able Tannhof DAIRY PROCESSING EQUIPMENT OPERATOR.HIGHER LEVEL TEACHING ASSISTANT, Jenna Unavailable Morgan POLANCO, Dr. Ruiz Primary [...] Curtis MD, Dr. Lucas Attending Physician Kristine EMAIL DEPLOYMENT SPECIALIST-CHalina Attending Physician Oleghe OLS, Efewongbe Attending Unavailabl [...] Oleghe OLS, Efewongbe Attending Unavailabl e Tickton EMAIL DEPLOYMENT SPECIALIST, Halina Attending Unavailable Elderbrock, Stas Primary Care Unavailable [place]ton EMAIL DEPLOYMENT SPECIALIST, Halina Attending Unavailable Elderbrock, Stas Primary Care Unavailable [place] EMAIL DEPLOYMENT SPECIALIST, Halina Attending Unavailable [place]brock, Stas Primary Care Unavailable [place] EMAIL DEPLOYMENT SPECIALIST, Halina Attending Unavailable [place]ck, Stas Primary Care Unavailable Koram, Kathy Monisha Consulting Unavailable Koram, Kathy Monisha Attending Unavailable Koram, Kathy Monisha Admitting Unavailable Elderbrock, Stas Primary Care Unavailable Kathy Wells Attending Unavailable Kristine EMAIL DEPLOYMENT SPECIALIST, Halina Attending Unavailable [place]brock, Stas Primary Care Unavailable Elderbrock, Stas Primary Care Unavailable Oleghe, Efewongbe Attending Unavailable Elderbrock, Stsa Primary Care Unavailable Oleghe, Efewongbe Attending Unavailable [...] unspecified vessel or lesion type, unspecified whether [place] or transplanted heart Take 1 tablet by [...] hydrochloride 10 mg oral tablet (20 sources) M-ilekby-E-aspartate Receptor Antagonist Start: 06-02-19 End: 11-29-19 take 1 tablet by mouth twice daily metoprolol tartrate 50 mg oral tablet (1 source) beta-Adrenergic Jazmin Start: 01-02-20 Lopressor 50 mg oral tablet Dose : 25 mg = 0.5 tab(s), PO, BID, 0 Refill(s), current med (Hx) Start Date: 01/01/06 Status: Ordered polyethylene glycol [id number] [id number] mg powder for oral solution (12 sources) [...] on above: Take 1 capsule by [facility] daily at bedtime. 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 01-19-2025 [facility] Letter Text Normal [facility] normalized rat io (INR) measurement by fingerstickOrdered By: Shayy Curtis on 01-10-2025 INR Coag (BldC) [Relative time] 1.9 [facility] Comment on above: Critical Value > 4.0 Whole blood prothrombin time Ordered By: Shayy Curtis on 01-10-2025 PT Coag (Bld) [Time] 21.0 s High 11.7-14.9 [facility] Absolute lymphocyte countOrd ered By: Shayy Curtis on 12-21-2024 Lymphocytes Auto (Unsp spec) [#/Vol] 1.31 10*3/uL 0.83-4.51 [facility] Absolute neutrophil countOrd ered By: Shayy Curtis on 12-21-2024 Neutrophils (Bld) [#/Vol] 3.6 10*3/uL 2.0-7.7 [facility] Anion gap in Serum or Plasma Ordered By: Shayy Curtis on 12-21-2024 Anion gap [Moles/Vol] 9 mmol/L 5-15 [facility] Automated lymphocyte count a s percentage of total leukocytesOrdered By: Shayy Curtis on 12-21-2024 Lymphocytes/100 WBC Auto (Unsp spec) 23.0 % 19-41 [facility] BUN/creatinine ratioOrdered By: Shayy Curtis on 12-21-2024 Urea nitrogen/Creatinine [Mass ratio] 32.5 mg/mg High 10-20 [facility] Basophil percentageOrdered B y: Shayy Curtis on 12-21-2024 Basophils/100 WBC (Bld) 0.7 % 0-1 [facility] Carbon dioxide, total [Moles /volume] in Central venous bloodOrdered By: Shayy Curtis on 12-21-2024 CO2 [Moles/Vol] 25.8 mmol/L 21.0-32.0 [facility] Chloride assayOrdered By: Hung Curtis on 12-21-2024 Chloride [Moles/Vol] 107 mmol/L 98-108 [facility] Eosinophil percentageOrdered By: Shayy Curtis on 12-21-2024 Eosinophils/100 WBC (Bld) 2.3 % 0-5 [facility] Erythrocyte distribution wid th ratioOrdered By: Shayy Curtis on 12-21-2024 Erythrocyte distribution width (RBC) [Ratio] 15.9 % High 11.6-14.6 [facility] Erythrocyte distribution wid th standard deviationOrdered By: Shayy Curtis on 12-21-2024 Erythrocyte distribution width (RBC) [Ratio] 49.5 fl High 35.1-43.9 [facility] Glomerular filtration rate ( GFR) estimation/1.73 sq m using serum, plasma, or whole bOrdered By: Shayy Curtis on 12-21-2024 GFR/1.73 sq M.predicted among non-blacks MDRD (S/P/Bld) [Vol rate/Area] 90 mL/min/{1.73_m2} >60 [facility] Comment on above: mL/min/1.73m2 CKD-EP I Creatinine Equation (2020) Hematocrit Auto (Bld) [Volum e fraction]Ordered By: Shayy Cutris on 12-21-2024 Hematocrit (Bld) [Volume fraction] 34.9 % Low 40-54 [facility] Hemoglobin measurementOrdere d By: Shayy Curtis on 12-21-2024 Hemoglobin (Bld) [Mass/Vol] 10.6 g/dL Low 13.0-16.5 [facility] Immature granulocytes/100 WB C Auto (Bld)Ordered By: Shayy Curtis on 12-21-2024 Immature granulocytes/100 WBC (Bld) 0.200 % 0.0-0.9 [facility] Comment on above: IG% - Immature Granu locytes (promyelocytes, myelocytes and metamyelocytes) > 1% indicates that a LEFT SHIFT is Present. MCV (mean corpuscular volume ) determinationOrdered By: Shayy Curtis on 12-21-2024 MCV (RBC) [Entitic vol] 84.5 fL 80-94 [facility] Mean corpuscular hemoglobin (MCH) determinationOrdered By: baldomero Curtis on 12-21-2024 MCH (RBC) [Entitic mass] 25.7 pg Low 27.0-32.0 [facility] Mean corpuscular hemoglobin concentration (MCHC) determinationOrdered By: Shayy Curtis on 12-21-2024 MCHC (RBC) [Mass/Vol] 30.4 g/dL Low 32-36 [facility] Mean platelet volume determi nationOrdered By: Shayy Curtis on 12-21-2024 Platelet mean volume (Bld) [Entitic vol] 10.9 fL 6.2-12.0 [facility] Monocyte percentageOrdered B y: Shayy Curtis on 12-21-2024 Monocytes/100 WBC (Bld) 10.5 % High 0-10 [facility] Neutrophil percentageOrdered By: Shayy Curtis on 12-21-2024 Neutrophils/100 WBC (Bld) 63.3 % 47-70 [facility] Nucleated red blood cell per centageOrdered By: Shayy Curtis on 12-21-2024 Nucleated RBC/100 WBC (Bld) [Ratio] 0 % 0-5 [facility] Platelet countOrdered By: Hung Curtis on 12-21-2024 Platelets (Bld) [#/Vol] 217 10*3/uL 150-450 [facility] Potassium measurement (mass/ volume)Ordered By: Shayy Curtis on 12-21-2024 Potassium (Unsp spec) [Mass/Vol] 3.8 mmol/L 3.3-5.1 [facility] RBC Auto (Bld) [#/Vol]Ordere d By: Shayy Curtis on 12-21-2024 RBC (Bld) [#/Vol] 4.13 10*6/uL Low 4.6-6.2 [facility] Serum creatinine measurement (mass/volume)Ordered By: Shayy Curtis on 12-21-2024 Creatinine [Mass/Vol] 0.66 mg/dL Low 0.70-1.20 [facility] Serum glucose measurement (m ass/volume)Ordered By: Shayy Curtis on 12-21-2024 Glucose [Mass/Vol] 86 mg/dL 70-99 [facility] Serum or plasma calcium alvaro urement (mass/volume)Ordered By: Shayy Curtis on 12-21-2024 Calcium [Mass/Vol] 8.6 mg/dL 7.6-11.0 [facility] Serum or plasma urea nitroge n measurement (mass/volume)Ordered By: Shayy Curtis on 12-21-2024 Urea nitrogen [Mass/Vol] 22 mg/dL High 4-19 [facility] Sodium levelOrdered By: Latrice Curtis on 12-21-2024 Sodium [Moles/Vol] 142 mmol/L 133-145 [facility] White blood cell (WBC) count Ordered By: Shayy Curtis on 12-21-2024 WBC (Bld) [#/Vol] 5.7 10*3/uL 4.4-11.0 [facility] normalized rat io (INR) calculationOrdered By: Shayy Curtis on 12-14-2024 INR Coag (Bld) [Relative time] 2.5 {INR} [facility] Prothrombin timeOrdered By: Shayy Curtis on 12-14-2024 PT Coag (PPP) [Time] 27.6 s High 11.7-14.9 [facility] normalized rat io (INR) measurement by fingerstickOrdered By: Shayy Curtis on 11-30-2024 INR Coag (BldC) [Relative time] 2.0 [facility] Comment on above: Critical Value > 4.0 Whole blood prothrombin time Ordered By: Shayy Curtis on 11-30-2024 PT Coag (Bld) [Time] 22.0 s High 11.7-14.9 [facility] Bilirubin directOrdered By: Shayy Curtis on 11-25-2024 Bilirubin.direct [Mass/Vol] 0.32 mg/dL High 0.00-0.30 [facility] Bilirubin, totalOrdered By: Shayy Curtis on 11-25-2024 Bilirubin [Mass/Vol] 0.63 mg/dL 0.00-1.30 [facility] Calculated very low density lipoprotein (VLDL) cholesterol measurementOrdered By: Shayy Curtis on 11-25-2024 Calculated very low density lipoprotein (VLDL) cholesterol measurement 10 mg/dL 5-40 [facility] LDL calc ser/plasOrdered By: Shayy Curtis on 11-25-2024 Cholesterol in LDL [Mass/Vol] 41 mg/dL [facility] Comment on above: Lkptsatkdg=101-260 m g/dL & Higher Fbvo=312 mg/dL or greaterFriedwald Equation for LDL-C Laboratory - Chemistry and C hemistry - challengeOrdered By: Shayy Curtis on 11-25-2024 AST [Catalytic activity/Vol] 24 U/L <38 [facility] Screening total cholesterol/ high density lipoprotein (HDL) cholesterol ratioOrdered By: Shayy Curtis on 11-25-2024 Cholesterol.total/Cho lesterol in HDL [Mass ratio] 2.59 {ratio} [facility] Serum globulin measurementOr dered By: Shayy Curtis on 11-25-2024 Globulin (S) [Mass/Vol] 2.3 g/dL 2.2-4.2 [facility] Serum or plasma alanine franks otransferase (ALT) measurementOrdered By: Shayy Curtis on 11-25-2024 ALT [Catalytic activity/Vol] 19 U/L <47 [facility] Serum or plasma albumin alvaro urement (mass/volume)Ordered By: Shayy Curtis on 11-25-2024 Albumin [Mass/Vol] 3.6 g/dL 3.4-4.8 [facility] Serum or plasma alkaline carole sphatase measurementOrdered By: Shayy Curtis on 11-25-2024 ALP [Catalytic activity/Vol] 119 U/L 40-129 [facility] Serum or plasma cholesterol in HDL measurement (mass/volume)Ordered By: Shayy Curtis on 11-25-2024 Cholesterol in HDL [Mass/Vol] 32 mg/dL Low >40 [facility] Comment on above: National Cholesterol Education Program (NCEP) guidelines:<40 mg/dL: Low HDL-cholesterol (major risk factor for CHD)>= 60 mg/dL: High HDL-cholesterol (negative risk factor for CHD)HDL-cholesterol is affected by a number of factors, e.g. smoking, exercise, hormones, sex and age. Serum or plasma cholesterol measurement (mass/volume)Ordered By: Shayy Curtis on 11-25-2024 Cholesterol [Mass/Vol] 83 mg/dL <201 [facility] Comment on above: Cholesterol level, D esirable <200 mg/dLBorderline high cholesterol 200-239 mg/dLHigh cholesterol >=240 mg/dLRecommendations of the NCEP Adult Treatment Panel for the following risk-cutoff thresholds for the [place] population. Total proteinOrdered By: Yazan Curtis on 11-25-2024 Protein [Mass/Vol] 5.8 g/dL Low 5.9-8.4 [facility] Triglycerides measurementOrd ered By: Shayy Curtis on 11-25-2024 Triglyceride [Mass/Vol] 49 mg/dL <199 [facility] Comment on above: The drugs N-Acetylcy steine and Metamizole may falsely depress this assay. Normal range: <150 mg/dLBorderline High: 150-199 mg/dLHigh: 200-499 mg/dLVery High: >500 mg/dL Absolute lymphocyte countOrd ered By: Shayy Curtis on 11-23-2024 Lymphocytes Auto (Unsp spec) [#/Vol] 1.15 10*3/uL 0.83-4.51 [facility] Absolute neutrophil countOrd ered By: Shayy Curtis on 11-23-2024 Neutrophils (Bld) [#/Vol] 4.4 10*3/uL 2.0-7.7 [facility] Anion gap in Serum or Plasma Ordered By: Shayy Curtis on 11-23-2024 Anion gap [Moles/Vol] 10 mmol/L 5-15 [facility] Automated lymphocyte count a s percentage of total leukocytesOrdered By: Shayy Curtis on 11-23-2024 Lymphocytes/100 WBC Auto (Unsp spec) 17.5 % Low 19-41 [facility] BUN/creatinine ratioOrdered By: Shayy Curtis on 11-23-2024 Urea nitrogen/Creatinine [Mass ratio] 23.9 mg/mg High 10-20 [facility] Basophil percentageOrdered B y: Shayy Curtis on 11-23-2024 Basophils/100 WBC (Bld) 0.9 % 0-1 [facility] Carbon dioxide, total [Moles /volume] in Central venous bloodOrdered By: Shayy Curtis on 11-23-2024 CO2 [Moles/Vol] 23.5 mmol/L 21.0-32.0 [facility] Chloride assayOrdered By: Hung Curtis on 11-23-2024 Chloride [Moles/Vol] 105 mmol/L 98-108 [facility] Eosinophil percentageOrdered By: baldomero Curtis on 11-23-2024 Eosinophils/100 WBC (Bld) 2.9 % 0-5 [facility] Erythrocyte distribution wid th ratioOrdered By: Shayy Curtis on 11-23-2024 Erythrocyte distribution width (RBC) [Ratio] 16.9 % High 11.6-14.6 [facility] Erythrocyte distribution wid th standard deviationOrdered By: Shayy Curtis on 11-23-2024 Erythrocyte distribution width (RBC) [Ratio] 50.4 fl High 35.1-43.9 [facility] Glomerular filtration rate ( GFR) estimation/1.73 sq m using serum, plasma, or whole bOrdered By: Shayy Curtis on 11-23-2024 GFR/1.73 sq M.predicted among non-blacks MDRD (S/P/Bld) [Vol rate/Area] 90 mL/min/{1.73_m2} >60 [facility] Comment on above: mL/min/1.73m2 CKD-EP I Creatinine Equation (2020) Hematocrit Auto (Bld) [Volum e fraction]Ordered By: Shayy Curtis on 11-23-2024 Hematocrit (Bld) [Volume fraction] 36.3 % Low 40-54 [facility] Hemoglobin measurementOrdere d By: Shayy Curtis on 11-23-2024 Hemoglobin (Bld) [Mass/Vol] 11.6 g/dL Low 13.0-16.5 [facility] Immature granulocytes/100 WB C Auto (Bld)Ordered By: Shayy Curtis 11-23-2024 Immature granulocytes/100 WBC (Bld) 0.300 % 0.0-0.9 [facility] Comment on above: IG% - Immature Granu locytes (promyelocytes, myelocytes and metamyelocytes) > 1% indicates that a LEFT SHIFT is Present. International normalized rat io (INR) calculationOrdered By: Shayy Curtis on 11-23-2024 INR Coag (Bld) [Relative time] 1.5 {INR} [facility] MCV (mean corpuscular volume ) determinationOrdered By: Shayy Curtis 11-23-2024 MCV (RBC) [Entitic vol] 82.1 fL 80-94 [facility] Mean corpuscular hemoglobin (MCH) determinationOrdered By: Shayy Curtis on 11-23-2024 MCH (RBC) [Entitic mass] 26.2 pg Low 27.0-32.0 [facility] Mean corpuscular hemoglobin concentration (MCHC) determinationOrdered By: Shayy Curtis on 11-23-2024 MCHC (RBC) [Mass/Vol] 32.0 g/dL 32-36 [facility] Mean platelet volume determi nationOrdered By: Shayy Curtis on 11-23-2024 Platelet mean volume (Bld) [Entitic vol] 10.0 fL 6.2-12.0 [facility] Monocyte percentageOrdered B y: Shayy Curtis on 11-23-2024 Monocytes/100 WBC (Bld) 11.3 % High 0-10 [facility] Neutrophil percentageOrdered By: Shayy Curtis on 11-23-2024 Neutrophils/100 WBC (Bld) 67.1 % 47-70 [facility] Nucleated red blood cell per centageOrdered By: Shayy Curtis on 11-23-2024 Nucleated RBC/100 WBC (Bld) [Ratio] 0 % 0-5 [facility] Platelet countOrdered By: Hung Curtis on 11-23-2024 Platelets (Bld) [#/Vol] 245 10*3/uL 150-450 [facility] Potassium measurement (mass/ volume)Ordered By: Shayy Curtis on 11-23-2024 Potassium (Unsp spec) [Mass/Vol] 4.0 mmol/L 3.3-5.1 [facility] Prothrombin timeOrdered By: Shayy Curtis on 11-23-2024 PT Coag (PPP) [Time] 17.9 s High 11.7-14.9 [facility] RBC Auto (Bld) [#/Vol]Ordere d By: Shayy Curtis on 11-23-2024 RBC (Bld) [#/Vol] 4.42 10*6/uL Low 4.6-6.2 [facility] Serum creatinine measurement (mass/volume)Ordered By: Shayy Curtis on 11-23-2024 Creatinine [Mass/Vol] 0.65 mg/dL Low 0.70-1.20 [facility] Serum glucose measurement (m ass/volume)Ordered By: Shayy Curtis on 11-23-2024 Glucose [Mass/Vol] 103 mg/dL High 70-99 [facility] Serum or plasma calcium alvaro urement (mass/volume)Ordered By: Shayy Curits on 11-23-2024 Calcium [Mass/Vol] 8.9 mg/dL 7.6-11.0 [facility] Serum or plasma urea nitroge n measurement (mass/volume)Ordered By: Shayy Curtis on 11-23-2024 Urea nitrogen [Mass/Vol] 16 mg/dL 4-19 [facility] Sodium levelOrdered By: Latrice simonmaira Ever on 11-23-2024 Sodium [Moles/Vol] 139 mmol/L 133-145 [facility] White blood cell (WBC) count Ordered By: Shayy Curtis on 11-23-2024 WBC (Bld) [#/Vol] 6.6 10*3/uL 4.4-11.0 [facility] Absolute lymphocyte countOrd ered By: Shayy Curtis on 11-02-2024 Lymphocytes Auto (Unsp spec) [#/Vol] 1.10 10*3/uL 0.83-4.51 [facility] Absolute neutrophil countOrd ered By: Shayy Curtis on 11-02-2024 Neutrophils (Bld) [#/Vol] 6.2 10*3/uL 2.0-7.7 [facility] Anion gap in Serum or Plasma Ordered By: Shayy Curtis on 11-02-2024 Anion gap [Moles/Vol] 10 mmol/L 5-15 [facility] Automated lymphocyte count a s percentage of total leukocytesOrdered By: Shayy Curtis on 11-02-2024 Lymphocytes/100 WBC Auto (Unsp spec) 13.5 % Low 19-41 [facility] BUN/creatinine ratioOrdered By: Shayy Curtis on 11-02-2024 Urea nitrogen/Creatinine [Mass ratio] 30.4 mg/mg High 10-20 [facility] Basophil percentageOrdered B y: Shayy Curtis on 11-02-2024 Basophils/100 WBC (Bld) 0.5 % 0-1 [facility] Carbon dioxide, total [Moles /volume] in Central venous bloodOrdered By: Shayy Curtis on 11-02-2024 CO2 [Moles/Vol] 22.3 mmol/L 21.0-32.0 [facility] Chloride assayOrdered By: Hung Curtis on 11-02-2024 Chloride [Moles/Vol] 106 mmol/L 98-108 [facility] Eosinophil percentageOrdered By: Shayy Curtis on 11-02-2024 Eosinophils/100 WBC (Bld) 1.4 % 0-5 [facility] Erythrocyte distribution wid th ratioOrdered By: Shayy Curtis on 11-02-2024 Erythrocyte distribution width (RBC) [Ratio] 18.0 % High 11.6-14.6 [facility] Erythrocyte distribution wid th standard deviationOrdered By: Shayy Curtis on 11-02-2024 Erythrocyte distribution width (RBC) [Ratio] 53.7 fl High 35.1-43.9 [facility] Glomerular filtration rate ( GFR) estimation/1.73 sq m using serum, plasma, or whole bOrdered By: Shayy Curtis on 11-02-2024 GFR/1.73 sq M.predicted among non-blacks MDRD (S/P/Bld) [Vol rate/Area] 91 mL/min/{1.73_m2} >60 [facility] Comment on above: mL/min/1.73m2 CKD-EP I Creatinine Equation (2020) Hematocrit Auto (Bld) [Volum e fraction]Ordered By: Shayy Curtis on 11-02-2024 Hematocrit (Bld) [Volume fraction] 35.3 % Low 40-54 [facility] Hemoglobin measurementOrdere d By: Shayy Curtis on 11-02-2024 Hemoglobin (Bld) [Mass/Vol] 11.2 g/dL Low 13.0-16.5 [facility] Immature granulocytes/100 WB C Auto (Bld)Ordered By: Shayy Curtis on 11-02-2024 Immature granulocytes/100 WBC (Bld) 0.400 % 0.0-0.9 [facility] Comment on above: IG% - Immature Granu locytes (promyelocytes, myelocytes and metamyelocytes) > 1% indicates that a LEFT SHIFT is Present. MCV (mean corpuscular volume ) determinationOrdered By: Hungbaldomero Curtis on 11-02-2024 MCV (RBC) [Entitic vol] 81.5 fL 80-94 [facility] Mean corpuscular hemoglobin (MCH) determinationOrdered By: [facility] Camdenirlanda Salazartomyradha on 11-02-2024 MCH (RBC) [Entitic mass] 25.9 pg Low 27.0-32.0 [facility] Mean corpuscular hemoglobin concentration (MCHC) determinationOrdered By: holliesan elizarioirlanda Salazartomyradha on 11-02-2024 MCHC (RBC) [Mass/Vol] 31.7 g/dL Low 32-36 [facility] Mean platelet volume determi nationOrdered By: holliesan elizarioirlanda Salazartomyradha on 11-02-2024 Platelet mean volume (Bld) [Entitic vol] 10.3 fL 6.2-12.0 [facility] Monocyte percentageOrdered B y: Shayy Curtis on 11-02-2024 Monocytes/100 WBC (Bld) 7.7 % 0-10 [facility] Neutrophil percentageOrdered By: [facility] Martinradha on 11-02-2024 Neutrophils/100 WBC (Bld) 76.5 % High 47-70 [facility] Nucleated red blood cell per centageOrdered By: holliesan elizarioirlanda Salazartomyradha on 11-02-2024 Nucleated RBC/100 WBC (Bld) [Ratio] 0 % 0-5 [facility] Platelet countOrdered By: holliesan elizarioirlanda Salazartomyradha on 11-02-2024 Platelets (Bld) [#/Vol] 225 10*3/uL 150-450 [facility] Potassium measurement (mass/ volume)Ordered By: holliesan elizarioirlanda Curtis on 11-02-2024 Potassium (Unsp spec) [Mass/Vol] 3.9 mmol/L 3.3-5.1 [facility] RBC Auto (Bld) [#/Vol]Ordere d By: Shayy Curtis on 11-02-2024 RBC (Bld) [#/Vol] 4.33 10*6/uL Low 4.6-6.2 [facility] Serum creatinine measurement (mass/volume)Ordered By: Shayy Curtis on 11-02-2024 Creatinine [Mass/Vol] 0.62 mg/dL Low 0.70-1.20 [facility] Serum glucose measurement (m ass/volume)Ordered By: Shayy Curtis on 11-02-2024 Glucose [Mass/Vol] 110 mg/dL High 70-99 [facility] Serum or plasma calcium alvaro urement (mass/volume)Ordered By: Shayy Curtis on 11-02-2024 Calcium [Mass/Vol] 8.7 mg/dL 7.6-11.0 [facility] Serum or plasma urea nitroge n measurement (mass/volume)Ordered By: Shayy Curtis on 11-02-2024 Urea nitrogen [Mass/Vol] 19 mg/dL 4-19 [facility] Sodium levelOrdered By: Latrice simonmaira Ever on 11-02-2024 Sodium [Moles/Vol] 139 mmol/L 133-145 [facility] White blood cell (WBC) count Ordered By: Shayy Curtis on 11-02-2024 WBC (Bld) [#/Vol] 8.1 10*3/uL 4.4-11.0 [facility] normalized rat io (INR) measurement by fingerstickOrdered By: Shayy Curtis on 10-31-2024 INR Coag (BldC) [Relative time] 1.8 [facility] Comment on above: Critical Value > 4.0 Whole blood prothrombin time Ordered By: Shayy Curtis on 10-31-2024 PT Coag (Bld) [Time] 20.2 s High 11.7-14.9 [facility] normalized rat io (INR) measurement by fingerstickOrdered By: Shayy Curtis on 10-06-2024 INR Coag (BldC) [Relative time] 2.1 [facility] Comment on above: Critical Value > 4.0 Whole blood prothrombin time Ordered By: Shayy Curtis on 10-06-2024 PT Coag (Bld) [Time] 22.6 s High 11.7-14.9 [facility] Absolute lymphocyte countOrd ered By: Shayy Curtis on 10-05-2024 Lymphocytes Auto (Unsp spec) [#/Vol] 1.54 10*3/uL 0.83-4.51 [facility] Absolute neutrophil countOrd ered By: Shayy Curtis on 10-05-2024 Neutrophils (Bld) [#/Vol] 4.2 10*3/uL 2.0-7.7 [facility] Anion gap in Serum or Plasma Ordered By: Shayy Curtis on 10-05-2024 Anion gap [Moles/Vol] 10 mmol/L 5-15 [facility] Automated lymphocyte count a s percentage of total leukocytesOrdered By: Shayy Curtis on 10-05-2024 Lymphocytes/100 WBC Auto (Unsp spec) 23.8 % 19-41 [facility] BUN/creatinine ratioOrdered By: baldomero Curtis on 10-05-2024 Urea nitrogen/Creatinine [Mass ratio] 18.2 mg/mg 10-20 [facility] Basophil percentageOrdered B y: Shayy Curtis on 10-05-2024 Basophils/100 WBC (Bld) 0.6 % 0-1 [facility] Carbon dioxide, total [Moles /volume] in Central venous bloodOrdered By: Shayy Curtis on 10-05-2024 CO2 [Moles/Vol] 24.6 mmol/L 21.0-32.0 [facility] Chloride assayOrdered By: Hung Curtis on 10-05-2024 Chloride [Moles/Vol] 106 mmol/L 98-108 [facility] Eosinophil percentageOrdered By: Shayy Curtis on 10-05-2024 Eosinophils/100 WBC (Bld) 1.9 % 0-5 [facility] Erythrocyte distribution wid th ratioOrdered By: Shayy Curtis on 10-05-2024 Erythrocyte distribution width (RBC) [Ratio] 18.2 % High 11.6-14.6 [facility] Erythrocyte distribution wid th standard deviationOrdered By: Shayy Curtis on 10-05-2024 Erythrocyte distribution width (RBC) [Ratio] 52.4 fl High 35.1-43.9 [facility] Glomerular filtration rate ( GFR) estimation/1.73 sq m using serum, plasma, or whole bOrdered By: Shayy Curtis on 10-05-2024 GFR/1.73 sq M.predicted among non-blacks MDRD (S/P/Bld) [Vol rate/Area] 87 mL/min/{1.73_m2} >60 [facility] Comment on above: mL/min/1.73m2 CKD-EP I Creatinine Equation (2020) Hematocrit Auto (Bld) [Volum e fraction]Ordered By: Shayy Curtis on 10-05-2024 Hematocrit (Bld) [Volume fraction] 35.0 % Low 40-54 [facility] Hemoglobin measurementOrdere d By: Shayy Curtis on 10-05-2024 Hemoglobin (Bld) [Mass/Vol] 11.0 g/dL Low 13.0-16.5 [facility] Immature granulocytes/100 WB C Auto (Bld)Ordered By: Shayy Curtis 10-05-2024 Immature granulocytes/100 WBC (Bld) 0.300 % 0.0-0.9 [facility] Comment on above: IG% - Immature Granu locytes (promyelocytes, myelocytes and metamyelocytes) > 1% indicates that a LEFT SHIFT is Present. MCV (mean corpuscular volume ) determinationOrdered By: Shayy Curtis 10-05-2024 MCV (RBC) [Entitic vol] 78.8 fL Low 80-94 [facility] Mean corpuscular hemoglobin (MCH) determinationOrdered By: baldomero Curtis 10-05-2024 MCH (RBC) [Entitic mass] 24.8 pg Low 27.0-32.0 [facility] Mean corpuscular hemoglobin concentration (MCHC) determinationOrdered By: Shayy Curtis 10-05-2024 MCHC (RBC) [Mass/Vol] 31.4 g/dL Low 32-36 [facility] Mean platelet volume determi nationOrdered By: Shayy Curtis on 10-05-2024 Platelet mean volume (Bld) [Entitic vol] 10.3 fL 6.2-12.0 [facility] Monocyte percentageOrdered B y: Shayy Salazartomyradha on 10-05-2024 Monocytes/100 WBC (Bld) 8.5 % 0-10 [facility] Neutrophil percentageOrdered By: Shayy Salazartomyradha on 10-05-2024 Neutrophils/100 WBC (Bld) 64.9 % 47-70 [facility] Nucleated red blood cell per centageOrdered By: Shayy Salazartomyradha on 10-05-2024 Nucleated RBC/100 WBC (Bld) [Ratio] 0 % 0-5 [facility] Platelet countOrdered By: Hung hollietimmy Curtis on 10-05-2024 Platelets (Bld) [#/Vol] 235 10*3/uL 150-450 [facility] Potassium measurement (mass/ volume)Ordered By: Shayy Curtis on 10-05-2024 Potassium (Unsp spec) [Mass/Vol] 4.1 mmol/L 3.3-5.1 [facility] RBC Auto (Bld) [#/Vol]Ordere d By: Shayy Curtis on 10-05-2024 RBC (Bld) [#/Vol] 4.44 10*6/uL Low 4.6-6.2 [facility] Serum creatinine measurement (mass/volume)Ordered By: Shayy Curtis on 10-05-2024 Creatinine [Mass/Vol] 0.73 mg/dL 0.70-1.20 [facility] Serum glucose measurement (m ass/volume)Ordered By: Shayy Curtis on 10-05-2024 Glucose [Mass/Vol] 90 mg/dL 70-99 [facility] Serum or plasma calcium alvaro urement (mass/volume)Ordered By: Shayy Curtis on 10-05-2024 Calcium [Mass/Vol] 8.7 mg/dL 7.6-11.0 [facility] Serum or plasma urea nitroge n measurement (mass/volume)Ordered By: Hungbaldomero Salazartomyradha on 10-05-2024 Urea nitrogen [Mass/Vol] 13 mg/dL 4-19 [facility] Sodium levelOrdered By: Latrice warner Martintomyradha on 10-05-2024 Sodium [Moles/Vol] 140 mmol/L 133-145 [facility] White blood cell (WBC) count Ordered By: Hunghollietimmy Martinsergio on 10-05-2024 WBC (Bld) [#/Vol] 6.5 10*3/uL 4.4-11.0 [facility] International normalized rat io (INR) calculationOrdered By: Hunghollierobsonirlanda Salazartomyradha on 09-29-2024 INR Coag (Bld) [Relative time] 3.3 {INR} [facility] Prothrombin timeOrdered By: Hunghollierobsonirlanda Salazartomyradha on 09-29-2024 PT Coag (PPP) [Time] 34.4 s High 11.7-14.9 [facility] Absolute lymphocyte countOrd ered By: Hunghollierobsonirlanda Salazartomyradha on 09-28-2024 Lymphocytes Auto (Unsp spec) [#/Vol] 1.41 10*3/uL 0.83-4.51 [facility] Absolute neutrophil countOrd ered By: Hunghollierobsonirlanda Salazartomyradha on 09-28-2024 Neutrophils (Bld) [#/Vol] 4.8 10*3/uL 2.0-7.7 [facility] Anion gap in Serum or Plasma Ordered By: Hunghollietimmy Martintomyradha on 09-28-2024 Anion gap [Moles/Vol] 13 mmol/L 5-15 [facility] Automated lymphocyte count a s percentage of total leukocytesOrdered By: Hungbaldomero Salazartomyradha on 09-28-2024 Lymphocytes/100 WBC Auto (Unsp spec) 20.1 % 19-41 [facility] BUN/creatinine ratioOrdered By: baldomero Salazartomyradha on 09-28-2024 Urea nitrogen/Creatinine [Mass ratio] 19.9 mg/mg 10-20 [facility] Basophil percentageOrdered B y: Christineirlanda Salazartomyradha on 09-28-2024 Basophils/100 WBC (Bld) 0.6 % 0-1 [facility] Carbon dioxide, total [Moles /volume] in Central venous bloodOrdered By: Shayy Curtis on 09-28-2024 CO2 [Moles/Vol] 21.1 mmol/L 21.0-32.0 [facility] Chloride assayOrdered By: Hung Curtis on 09-28-2024 Chloride [Moles/Vol] 105 mmol/L 98-108 [facility] Eosinophil percentageOrdered By: Shayy Curtis on 09-28-2024 Eosinophils/100 WBC (Bld) 2.0 % 0-5 [facility] Erythrocyte distribution wid th ratioOrdered By: baldomero Curtis on 09-28-2024 Erythrocyte distribution width (RBC) [Ratio] 18.3 % High 11.6-14.6 [facility] Erythrocyte distribution wid th standard deviationOrdered By: holliesan elizarioirlanda Curtis on 09-28-2024 Erythrocyte distribution width (RBC) [Ratio] 52.8 fl High 35.1-43.9 [facility] Glomerular filtration rate ( GFR) estimation/1.73 sq m using serum, plasma, or whole bOrdered By: Shayy Curtis on 09-28-2024 GFR/1.73 sq M.predicted among non-blacks MDRD (S/P/Bld) [Vol rate/Area] 88 mL/min/{1.73_m2} >60 [facility] Comment on above: mL/min/1.73m2 CKD-EP I Creatinine Equation (2020) Hematocrit Auto (Bld) [Volum e fraction]Ordered By: Shayy Curtis on 09-28-2024 Hematocrit (Bld) [Volume fraction] 37.0 % Low 40-54 [facility] Hemoglobin measurementOrdere d By: Shayy Curtis on 09-28-2024 Hemoglobin (Bld) [Mass/Vol] 11.5 g/dL Low 13.0-16.5 [facility] Immature granulocytes/100 WB C Auto (Bld)Ordered By: Shayy Curtis on 09-28-2024 Immature granulocytes/100 WBC (Bld) 0.300 % 0.0-0.9 [facility] Comment on above: IG% - Immature Granu locytes (promyelocytes, myelocytes and metamyelocytes) > 1% indicates that a LEFT SHIFT is Present. MCV (mean corpuscular volume ) determinationOrdered By: Shayy Curtis on 09-28-2024 MCV (RBC) [Entitic vol] 80.3 fL 80-94 [facility] Mean corpuscular hemoglobin (MCH) determinationOrdered By: Shayy Curtis on 09-28-2024 MCH (RBC) [Entitic mass] 24.9 pg Low 27.0-32.0 [facility] Mean corpuscular hemoglobin concentration (MCHC) determinationOrdered By: Shayy Curtis on 09-28-2024 MCHC (RBC) [Mass/Vol] 31.1 g/dL Low 32-36 [facility] Mean platelet volume determi nationOrdered By: Shayy Curtis on 09-28-2024 Platelet mean volume (Bld) [Entitic vol] 10.5 fL 6.2-12.0 [facility] Monocyte percentageOrdered B y: Shayy Curtis on 09-28-2024 Monocytes/100 WBC (Bld) 8.8 % 0-10 [facility] Neutrophil percentageOrdered By: holliesan elizarioirlanda Curtis on 09-28-2024 Neutrophils/100 WBC (Bld) 68.2 % 47-70 [facility] Nucleated red blood cell per centageOrdered By: Shayy Curtis on 09-28-2024 Nucleated RBC/100 WBC (Bld) [Ratio] 0 % 0-5 [facility] Platelet countOrdered By: Hung hollietimmy Curtis on 09-28-2024 Platelets (Bld) [#/Vol] 280 10*3/uL 150-450 [facility] Potassium measurement (mass/ volume)Ordered By: Shayy Curtis on 09-28-2024 Potassium (Unsp spec) [Mass/Vol] 4.0 mmol/L 3.3-5.1 [facility] RBC Auto (Bld) [#/Vol]Ordere d By: Shayy Curtis on 09-28-2024 RBC (Bld) [#/Vol] 4.61 10*6/uL 4.6-6.2 [facility] Serum creatinine measurement (mass/volume)Ordered By: Shayy Curtis on 09-28-2024 Creatinine [Mass/Vol] 0.71 mg/dL 0.70-1.20 [facility] Serum glucose measurement (m ass/volume)Ordered By: Shayy Curtis on 09-28-2024 Glucose [Mass/Vol] 91 mg/dL 70-99 [facility] Serum or plasma calcium alvaro urement (mass/volume)Ordered By: Shayy Curtis on 09-28-2024 Calcium [Mass/Vol] 8.9 mg/dL 7.6-11.0 [facility] Serum or plasma urea nitroge n measurement (mass/volume)Ordered By: Shayy Curtis on 09-28-2024 Urea nitrogen [Mass/Vol] 14 mg/dL 4-19 [facility] Sodium levelOrdered By: Latrice Curtis on 09-28-2024 Sodium [Moles/Vol] 140 mmol/L 133-145 [facility] White blood cell (WBC) count Ordered By: Shayy Curtis on 09-28-2024 WBC (Bld) [#/Vol] 7.0 10*3/uL 4.4-11.0 [facility] normalized rat io (INR) measurement by fingerstickOrdered By: Shayy Curtis on 09-26-2024 INR Coag (BldC) [Relative time] 2.5 [facility] Comment on above: Critical Value > 4.0 Whole blood prothrombin time Ordered By: Shayy Curtis on 09-26-2024 PT Coag (Bld) [Time] 27.1 s High 11.7-14.9 [facility] International normalized rat io (INR) calculationOrdered By: Shayy Curtis on 09-23-2024 INR Coag (Bld) [Relative time] 2.0 {INR} [facility] Prothrombin timeOrdered By: Shayy Curtis on 09-23-2024 PT Coag (PPP) [Time] 23.5 s High 11.7-14.9 [facility] Absolute lymphocyte countOrd ered By: Shayy Curtis on 09-21-2024 Lymphocytes Auto (Unsp spec) [#/Vol] 1.35 10*3/uL 0.83-4.51 [facility] Absolute neutrophil countOrd ered By: holliesan elizarioirlanda Curtis on 09-21-2024 Neutrophils (Bld) [#/Vol] 4.3 10*3/uL 2.0-7.7 [facility] Anion gap in Serum or Plasma Ordered By: Latricesan elizarioirlanda Curtis on 09-21-2024 Anion gap [Moles/Vol] 12 mmol/L 5-15 [facility] Automated lymphocyte count a s percentage of total leukocytesOrdered By: Latricesan elizarioirlanda Curtis on 09-21-2024 Lymphocytes/100 WBC Auto (Unsp spec) 21.5 % 19-41 [facility] BUN/creatinine ratioOrdered By: [facility] Camden[facility] Salazarradha on 09-21-2024 Urea nitrogen/Creatinine [Mass ratio] 15.8 mg/mg 10-20 [facility] Basophil percentageOrdered B y: Shayy Curtis on 09-21-2024 Basophils/100 WBC (Bld) 0.8 % 0-1 [facility] CNPNon 09-21-2024 [facility] ROB[facility] FLOR[facility] ([id number]) 1935 M Date Time Provider Department 09/21/24 [facility] During your visit today, we recorded the following information about you: Petty Vargas 09/21/2024 9:23 AM Signed [facility] rehabilitation. 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 Encounter Status:Closed by MARTA PALACIO on 09/22/24 Normal [facility] Carbon dioxide, total [Moles /volume] in Central venous bloodOrdered By: Shayy Curtis on 09-21-2024 CO2 [Moles/Vol] 23.2 mmol/L 21.0-32.0 [facility] Chloride assayOrdered By: Hung Curtis on 09-21-2024 Chloride [Moles/Vol] 104 mmol/L 98-108 [facility] Eosinophil percentageOrdered By: Shayy Curtis on 09-21-2024 Eosinophils/100 WBC (Bld) 1.3 % 0-5 [facility] Erythrocyte distribution wid th ratioOrdered By: Shayy Curtis on 09-21-2024 Erythrocyte distribution width (RBC) [Ratio] 18.0 % High 11.6-14.6 [facility] Erythrocyte distribution wid th standard deviationOrdered By: Shayy Curtis on 09-21-2024 Erythrocyte distribution width (RBC) [Ratio] 50.8 fl High 35.1-43.9 [facility] Glomerular filtration rate ( GFR) estimation/1.73 sq m using serum, plasma, or whole bOrdered By: Shayy Curtis on 09-21-2024 GFR/1.73 sq M.predicted among non-blacks MDRD (S/P/Bld) [Vol rate/Area] 88 mL/min/{1.73_m2} >60 [facility] Comment on above: mL/min/1.73m2 CKD-EP I Creatinine Equation (2020) Hematocrit Auto (Bld) [Volum e fraction]Ordered By: Shayy Curtis on 09-21-2024 Hematocrit (Bld) [Volume fraction] 37.5 % Low 40-54 [facility] Hemoglobin measurementOrdere d By: Shayy Curtis on 09-21-2024 Hemoglobin (Bld) [Mass/Vol] 11.6 g/dL Low 13.0-16.5 [facility] Immature granulocytes/100 WB C Auto (Bld)Ordered By: Shayy Curtis on 09-21-2024 Immature granulocytes/100 WBC (Bld) 0.300 % 0.0-0.9 [facility] Comment on above: IG% - Immature Granu locytes (promyelocytes, myelocytes and metamyelocytes) > 1% indicates that a LEFT SHIFT is Present. International normalized rat io (INR) calculationOrdered By: Shayy Curtis on 09-21-2024 INR Coag (Bld) [Relative time] 1.7 {INR} [facility] MCV (mean corpuscular volume ) determinationOrdered By: Shayy Curtis 09-21-2024 MCV (RBC) [Entitic vol] 78.9 fL Low 80-94 [facility] Mean corpuscular hemoglobin (MCH) determinationOrdered By: Shayy Curtis on 09-21-2024 MCH (RBC) [Entitic mass] 24.4 pg Low 27.0-32.0 [facility] Mean corpuscular hemoglobin concentration (MCHC) determinationOrdered By: Shayy Curtis on 09-21-2024 MCHC (RBC) [Mass/Vol] 30.9 g/dL Low 32-36 [facility] Mean platelet volume determi nationOrdered By: Shayy Curtsi on 09-21-2024 Platelet mean volume (Bld) [Entitic vol] 10.1 fL 6.2-12.0 [facility] Monocyte percentageOrdered B y: Shayy Curtis on 09-21-2024 Monocytes/100 WBC (Bld) 8.1 % 0-10 [facility] Neutrophil percentageOrdered By: Shayy Curtis on 09-21-2024 Neutrophils/100 WBC (Bld) 68.0 % 47-70 [facility] Nucleated red blood cell per centageOrdered By: Shayy Curtis on 09-21-2024 Nucleated RBC/100 WBC (Bld) [Ratio] 0 % 0-5 [facility] Platelet countOrdered By: Hung Curtis on 09-21-2024 Platelets (Bld) [#/Vol] 318 10*3/uL 150-450 [facility] Potassium measurement (mass/ volume)Ordered By: Shayy Curtis on 09-21-2024 Potassium (Unsp spec) [Mass/Vol] 4.0 mmol/L 3.3-5.1 [facility] Prothrombin timeOrdered By: Shayy Curtis on 09-21-2024 PT Coag (PPP) [Time] 20.6 s High 11.7-14.9 [facility] RBC Auto (Bld) [#/Vol]Ordere d By: Shayy Curtis on 09-21-2024 RBC (Bld) [#/Vol] 4.75 10*6/uL 4.6-6.2 [facility] Serum creatinine measurement (mass/volume)Ordered By: Shayy Curtis on 09-21-2024 Creatinine [Mass/Vol] 0.70 mg/dL 0.70-1.20 [facility] Serum glucose measurement (m ass/volume)Ordered By: Shayy Curtis on 09-21-2024 Glucose [Mass/Vol] 101 mg/dL High 70-99 [facility] Serum or plasma calcium alvaro urement (mass/volume)Ordered By: Shayy Curtis on 09-21-2024 Calcium [Mass/Vol] 9.2 mg/dL 7.6-11.0 [facility] Serum or plasma urea nitroge n measurement (mass/volume)Ordered By: Shayy Curtis on 09-21-2024 Urea nitrogen [Mass/Vol] 11 mg/dL 4-19 [facility] Sodium levelOrdered By: Latrice simonraffiradha Curtis on 09-21-2024 Sodium [Moles/Vol] 139 mmol/L 133-145 [facility] White blood cell (WBC) count Ordered By: Shayy Curtis on 09-21-2024 WBC (Bld) [#/Vol] 6.3 10*3/uL 4.4-11.0 [facility] International normalized rat io (INR) measurement by fingerstickOrdered By: Shayy Curtis on 09-19-2024 INR Coag (BldC) [Relative time] 1.9 [facility] Comment on above: Critical Value > 4.0 Whole blood prothrombin time Ordered By: Shayy Curtis on 09-19-2024 PT Coag (Bld) [Time] 21.5 s High 11.7-14.9 [facility] International normalized rat io (INR) calculationOrdered By: Shayy Curtis on 09-15-2024 INR Coag (Bld) [Relative time] 2.1 {INR} [facility] Prothrombin timeOrdered By: Shayy Curtis on 09-15-2024 PT Coag (PPP) [Time] 24.2 s High 11.7-14.9 [facility] Absolute lymphocyte countOrd ered By: Shayy Curtis on 09-14-2024 Lymphocytes Auto (Unsp spec) [#/Vol] 1.57 10*3/uL 0.83-4.51 [facility] Absolute neutrophil countOrd ered By: Shayy Curtis on 09-14-2024 Neutrophils (Bld) [#/Vol] 5.1 10*3/uL 2.0-7.7 [facility] Anion gap in Serum or Plasma Ordered By: Shayy Curtis on 09-14-2024 Anion gap [Moles/Vol] 12 mmol/L 5-15 [facility] Automated lymphocyte count a s percentage of total leukocytesOrdered By: Shayy Curtis on 09-14-2024 Lymphocytes/100 WBC Auto (Unsp spec) 20.8 % 19-41 [facility] BUN/creatinine ratioOrdered By: Shayy Curtis on 09-14-2024 Urea nitrogen/Creatinine [Mass ratio] 21.8 mg/mg High 10-20 [facility] Basophil percentageOrdered B y: Shayy Curtis on 09-14-2024 Basophils/100 WBC (Bld) 1.1 % High 0-1 [facility] Carbon dioxide, total [Moles /volume] in Central venous bloodOrdered By: Shayy Curtis on 09-14-2024 CO2 [Moles/Vol] 21.8 mmol/L 21.0-32.0 [facility] Chloride assayOrdered By: Hung Curtis on 09-14-2024 Chloride [Moles/Vol] 107 mmol/L 98-108 [facility] Eosinophil percentageOrdered By: Shayy Curtis on 09-14-2024 Eosinophils/100 WBC (Bld) 1.7 % 0-5 [facility] Erythrocyte distribution wid th ratioOrdered By: Shayy Curtis on 09-14-2024 Erythrocyte distribution width (RBC) [Ratio] 17.7 % High 11.6-14.6 [facility] Erythrocyte distribution wid th standard deviationOrdered By: Shayy Curtis on 09-14-2024 Erythrocyte distribution width (RBC) [Ratio] 51.1 fl High 35.1-43.9 [facility] Glomerular filtration rate ( GFR) estimation/1.73 sq m using serum, plasma, or whole bOrdered By: Shayy Curtis on 09-14-2024 GFR/1.73 sq M.predicted among non-blacks MDRD (S/P/Bld) [Vol rate/Area] 87 mL/min/{1.73_m2} >60 [facility] Comment on above: mL/min/1.73m2 CKD-EP I Creatinine Equation (2020) Hematocrit Auto (Bld) [Volum e fraction]Ordered By: Shayy Curtis on 09-14-2024 Hematocrit (Bld) [Volume fraction] 34.7 % Low 40-54 [facility] Hemoglobin measurementOrdere d By: Shayy Curtis on 09-14-2024 Hemoglobin (Bld) [Mass/Vol] 10.7 g/dL Low 13.0-16.5 [facility] Immature granulocytes/100 WB C Auto (Bld)Ordered By: holliesan elizarioirlanda Curtis on 09-14-2024 Immature granulocytes/100 WBC (Bld) 0.400 % 0.0-0.9 [facility] Comment on above: IG% - Immature Granu locytes (promyelocytes, myelocytes and metamyelocytes) > 1% indicates that a LEFT SHIFT is Present. MCV (mean corpuscular volume ) determinationOrdered By: Shayy Curtis on 09-14-2024 MCV (RBC) [Entitic vol] 78.9 fL Low 80-94 [facility] Mean corpuscular hemoglobin (MCH) determinationOrdered By: Shayy Curtis on 09-14-2024 MCH (RBC) [Entitic mass] 24.3 pg Low 27.0-32.0 [facility] Mean corpuscular hemoglobin concentration (MCHC) determinationOrdered By: baldomero Curtis on 09-14-2024 MCHC (RBC) [Mass/Vol] 30.8 g/dL Low 32-36 [facility] Mean platelet volume determi nationOrdered By: Shayy Curtis on 09-14-2024 Platelet mean volume (Bld) [Entitic vol] 10.6 fL 6.2-12.0 [facility] Monocyte percentageOrdered B y: Shayy Curtis on 09-14-2024 Monocytes/100 WBC (Bld) 8.5 % 0-10 [facility] Neutrophil percentageOrdered By: Shayy Curtis on 09-14-2024 Neutrophils/100 WBC (Bld) 67.5 % 47-70 [facility] Nucleated red blood cell per centageOrdered By: Shayy Curtis on 09-14-2024 Nucleated RBC/100 WBC (Bld) [Ratio] 0 % 0-5 [facility] Platelet countOrdered By: Hung Curtis on 09-14-2024 Platelets (Bld) [#/Vol] 291 10*3/uL 150-450 [facility] Potassium measurement (mass/ volume)Ordered By: Shayy Curtis on 09-14-2024 Potassium (Unsp spec) [Mass/Vol] 4.0 mmol/L 3.3-5.1 [facility] RBC Auto (Bld) [#/Vol]Ordere d By: Shayy Curtis on 09-14-2024 RBC (Bld) [#/Vol] 4.40 10*6/uL Low 4.6-6.2 [facility] Serum creatinine measurement (mass/volume)Ordered By: Shayy Curtis on 09-14-2024 Creatinine [Mass/Vol] 0.74 mg/dL 0.70-1.20 [facility] Serum glucose measurement (m ass/volume)Ordered By: Shayy Curtis on 09-14-2024 Glucose [Mass/Vol] 99 mg/dL 70-99 [facility] Serum or plasma calcium alvaro urement (mass/volume)Ordered By: Shayy Curtis on 09-14-2024 Calcium [Mass/Vol] 8.6 mg/dL 7.6-11.0 [facility] Serum or plasma urea nitroge n measurement (mass/volume)Ordered By: Shayy Curtis on 09-14-2024 Urea nitrogen [Mass/Vol] 16 mg/dL 4-19 [facility] Sodium levelOrdered By: Latrice Curtis on 09-14-2024 Sodium [Moles/Vol] 141 mmol/L 133-145 [facility] White blood cell (WBC) count Ordered By: Shayy Curtis on 09-14-2024 WBC (Bld) [#/Vol] 7.5 10*3/uL 4.4-11.0 [facility] International normalized rat io (INR) measurement by fingerstickOrdered By: Shayy Curtis on 09-12-2024 INR Coag (BldC) [Relative time] 3.2 [facility] Comment on above: Critical Value > 4.0 Whole blood prothrombin time Ordered By: Shayy Curtis on 09-12-2024 PT Coag (Bld) [Time] 33.0 s High 11.7-14.9 [facility] International normalized rat io (INR) measurement by fingerstickOrdered By: Shayy Curtis on 09-08-2024 INR Coag (BldC) [Relative time] 2.2 [facility] Comment on above: Critical Value > 4.0 Prothrombin Time w/INRon INR Normal [facility] Comment on above: Result Comment: Canc elled via OM: Order cancelled - Patient discharged Performed By: #### L 300.3900 #### [facility] [address] [place], [place], [id number] PROTIME Normal 11.7-14.9 [facility] Comment on above: Result Comment: Canc elled via OM: Order cancelled - Patient discharged Performed By: #### L 300.3900 #### [facility] [address] [place], [place], [id number] Whole blood prothrombin time Ordered By: Shayy Curtis on 09-08-2024 PT Coag (Bld) [Time] 23.8 s High 11.7-14.9 [facility] Anion gap in Serum or Plasma Ordered By: Shayy Curtis on 09-07-2024 Anion gap [Moles/Vol] 10 mmol/L 5-15 [facility] BUN/creatinine ratioOrdered By: Shayy Curtis on 09-07-2024 Urea nitrogen/Creatinine [Mass ratio] 14.0 mg/mg 10-20 [facility] Bilirubin, totalOrdered By: Shayy Curtis on 09-07-2024 Bilirubin [Mass/Vol] 1.02 mg/dL 0.00-1.30 [facility] Calculated very low density lipoprotein (VLDL) cholesterol measurementOrdered By: Shayy Curtis on 09-07-2024 Calculated very low density lipoprotein (VLDL) cholesterol measurement 13 mg/dL 5-40 [facility] Carbon dioxide, total [Moles /volume] in Central venous bloodOrdered By: Shayy Curtis on 09-07-2024 CO2 [Moles/Vol] 25.4 mmol/L 21.0-32.0 [facility] Chloride assayOrdered By: Hung Curtis on 09-07-2024 Chloride [Moles/Vol] 104 mmol/L 98-108 [facility] Culture, Blood (WB)on 2024 CUB No growth in 5 days. Normal [facility] Comment on above: Performed By: #### M 200.1000, L509.7001, L101.9900, L501.6710 #### [facility] [address] [place], [address] Glomerular filtration rate ( GFR) estimation/1.73 sq m using serum, plasma, or whole bOrdered By: Shayy Curtis on 09-07-2024 GFR/1.73 sq M.predicted among non-blacks MDRD (S/P/Bld) [Vol rate/Area] 88 mL/min/{1.73_m2} >60 [facility] Comment on above: mL/min/1.73m2 CKD-EP I Creatinine Equation (2020) LDL calc ser/plasOrdered By: Shayy Curtis on 09-07-2024 Cholesterol in LDL [Mass/Vol] 64 mg/dL [facility] Comment on above: Xixoadjlfa=053-066 m g/dL & Higher Wpib=821 mg/dL or greater Laboratory - Chemistry and C hemistry - challengeOrdered By: Shayy Curtis on 09-07-2024 AST [Catalytic activity/Vol] 33 U/L <38 [facility] Potassium measurement (mass/ volume)Ordered By: Shayy Curtis on 09-07-2024 Potassium (Unsp spec) [Mass/Vol] 3.8 mmol/L 3.3-5.1 [facility] Prothrombin Time w/INRon INR Normal [facility] Comment on above: Result Comment: Canc elled via OM: Order cancelled - Patient discharged Performed By: #### L 300.3900 #### [facility] [address] [place], [place], [id number] PROTIME Normal 11.7-14.9 [facility] Comment on above: Result Comment: Canc elled via OM: Order cancelled - Patient discharged Performed By: #### L 300.3900 #### [facility] [address] [place], [place], [id number] Screening total cholesterol/ high density lipoprotein (HDL) cholesterol ratioOrdered By: Shayy Curtis on 09-07-2024 Cholesterol.total/Cho lesterol in HDL [Mass ratio] 3.75 {ratio} [facility] Serum creatinine measurement (mass/volume)Ordered By: Shayy Curtis on 09-07-2024 Creatinine [Mass/Vol] 0.70 mg/dL 0.70-1.20 [facility] Serum globulin measurementOr dered By: Shayy Curtis on 09-07-2024 Globulin (S) [Mass/Vol] 2.5 g/dL 2.2-4.2 [facility] Serum glucose measurement (m ass/volume)Ordered By: Shayy Curtis on 09-07-2024 Glucose [Mass/Vol] 107 mg/dL High 70-99 [facility] Serum or plasma alanine franks otransferase (ALT) measurementOrdered By: Shayy Curtis on 09-07-2024 ALT [Catalytic activity/Vol] 23 U/L <47 [facility] Serum or plasma albumin alvaro urement (mass/volume)Ordered By: Shayy Curtis on 09-07-2024 Albumin [Mass/Vol] 3.7 g/dL 3.4-4.8 [facility] Serum or plasma albumin/glob ulin mass ratioOrdered By: Shayy Curtis on 09-07-2024 Albumin/Globulin [Mass ratio] 1.5 {ratio} 0.9-2.4 [facility] Serum or plasma alkaline carole sphatase measurementOrdered By: Shayy Curtis 09-07-2024 ALP [Catalytic activity/Vol] 123 U/L 40-129 [facility] Serum or plasma calcium alvaro urement (mass/volume)Ordered By: Shayy Curtis on 09-07-2024 Calcium [Mass/Vol] 8.7 mg/dL 7.6-11.0 [facility] Serum or plasma cholesterol in HDL measurement (mass/volume)Ordered By: Shayy Curtis 09-07-2024 Cholesterol in HDL [Mass/Vol] 28 mg/dL Low >40 [facility] Comment on above: National Cholesterol Education Program (NCEP) guidelines:<40 mg/dL: Low HDL-cholesterol (major risk factor for CHD)>= 60 mg/dL: High HDL-cholesterol (negative risk factor for CHD)HDL-cholesterol is affected by a number of factors, e.g. smoking, exercise, hormones, sex and age. Serum or plasma cholesterol measurement (mass/volume)Ordered By: Shayy Curtis 09-07-2024 Cholesterol [Mass/Vol] 105 mg/dL <201 [facility] Comment on above: Cholesterol level, D esirable <200 mg/dLBorderline high cholesterol 200-239 mg/dLHigh cholesterol >=240 mg/dLRecommendations of the NCEP Adult Treatment Panel for the following risk-cutoff thresholds for the [place] population. Serum or plasma urea nitroge n measurement (mass/volume)Ordered By: Shayy Curtis 09-07-2024 Urea nitrogen [Mass/Vol] 10 mg/dL 4-19 [facility] Sodium levelOrdered By: Latrice Curtis 09-07-2024 Sodium [Moles/Vol] 139 mmol/L 133-145 [facility] TSH DL <= 0.005 mIU/L QnOrde red By: Shayy Curtis 09-07-2024 TSH Qn 0.300 uIU/mL 0.300-4.20 0 [facility] Total proteinOrdered By: Yazan Curtis on 09-07-2024 Protein [Mass/Vol] 6.2 g/dL 5.9-8.4 [facility] Triglycerides measurementOrd ered By: Shayy Curtis on 09-07-2024 Triglyceride [Mass/Vol] 63 mg/dL <199 [facility] Comment on above: The drugs N-Acetylcy steine and Metamizole may falsely depress this assay. Normal range: <150 mg/dLBorderline High: 150-199 mg/dLHigh: 200-499 mg/dLVery High: >500 mg/dL Vitamin B12 ser/plasOrdered By: Shayy Curtis on 09-07-2024 Cobalamin (Vitamin B12) [Mass/Vol] 519 pg/mL 180-914 [facility] Absolute lymphocyte countOrd ered By: Navid Dominguez on 09-06-2024 Lymphocytes Auto (Unsp spec) [#/Vol] 1.28 10*3/uL 0.83-4.51 [facility] Absolute neutrophil countOrd ered By: Navid Dominguez on 09-06-2024 Neutrophils (Bld) [#/Vol] 5.2 10*3/uL 2.0-7.7 [facility] Anion gap in Serum or Plasma Ordered By: Navid Dominguez on 09-06-2024 Anion gap [Moles/Vol] 10 mmol/L 5-15 [facility] Automated blood erythrocyte countOrdered By: Navid Dominguez on 09-06-2024 RBC (Bld) [#/Vol] 4.39 10*6/uL Low 4.6-6.2 [facility] Comment on above: Performed By: #### L 100.0100, L500.2500, L300.3900 #### [facility] [address] [place], [address] Automated blood hematocrit ( percentage)Ordered By: Navid Dominguez on 09-06-2024 Hematocrit (Bld) [Volume fraction] 33.6 % Low 40-54 [facility] Comment on above: Performed By: #### L 100.0100, L500.2500, L300.3900 #### [facility] [address] [place], [address] Automated lymphocyte count a s percentage of total leukocytesOrdered By: Navid Dominguez on 09-06-2024 Lymphocytes/100 WBC Auto (Unsp spec) 16.4 % Low 19-41 [facility] BUN/creatinine ratioOrdered By: Navid Dominguez on 09-06-2024 Urea nitrogen/Creatinine [Mass ratio] 14.4 mg/mg 10-20 [facility] Basic Metabolic Profile (BMP )on 09-06-2024 BUN/CRE 14.4 RATIO Normal 10-20 [facility] Comment on above: Performed By: #### M 200.1000, L509.7001, L101.9900, L501.6710 #### [facility] [address] [place], [address] ECRCL 64.10 ml/min Normal 50-250 [facility] Comment on above: Performed By: #### M 200.1000, L509.7001, L101.9900, L501.6710 #### [facility] [address] [place], [address] GAP 10 Normal 5-15 [facility] Comment on above: Performed By: #### M 200.1000, L509.7001, L101.9900, L501.6710 #### [facility] [address] [place], [address] Potassium [Moles/Vol] 3.5 mmol/L Normal 3.3-5.1 [facility] Comment on above: Performed By: #### M 200.1000, L509.7001, L101.9900, L501.6710 #### [facility] [address] [place], [address] Basophil percentageOrdered B y: Navid Dominguez on 09-06-2024 Basophils/100 WBC (Bld) 1.0 % Normal 0-1 [facility] Comment on above: Performed By: #### L 100.0100, L500.2500, L300.3900 #### [facility] [address] [place], [address] CBC W/Diff, Automatedon 08-21-2024 Absolute Lymph 1.28 X10 3/uL Normal 0.83-4.51 [facility] Comment on above: Performed By: #### L 100.0100, L500.2500, L300.3900 #### [facility] [address] [place], [address] Absolute Neut 5.2 X10 3/uL Normal 2.0-7.7 [facility] Comment on above: Performed By: #### L 100.0100, L500.2500, L300.3900 #### [facility] [address] [place], [address] IG% 0.400 Normal 0.0-0.9 [facility] Comment on above: Result Comment: IG% - Immature Granulocytes (promyelocytes, myelocytes and metamyelocytes) > 1% indicates that a LEFT SHIFT is Present. Performed By: #### L 100.0100, L500.2500, L300.3900 #### [facility] [address] [place], [address] Lymphocytes/100 WBC (Bld) 16.4 % Low 19-41 [facility] Comment on above: Performed By: #### L 100.0100, L500.2500, L300.3900 #### [facility] [address] [place], [address] Nucleated RBC (Bld) [#/Vol] 0 10*3/uL Normal 0-5 [facility] Comment on above: Performed By: #### L 100.0100, L500.2500, L300.3900 #### [facility] [address] [place], [address] RDW SD 48.2 fl High 35.1-43.9 [facility] Comment on above: Performed By: #### L 100.0100, L500.2500, L300.3900 #### [facility] [address] [place], [address] Carbon dioxide, total [Moles /volume] in Central venous bloodOrdered By: Navid Dominguez on 09-06-2024 CO2 [Moles/Vol] 24.9 mmol/L Normal 21.0-32.0 [facility] Comment on above: Performed By: #### M 200.1000, L509.7001, L101.9900, L501.6710 #### [facility] [address] [place], [address] Chloride assayOrdered By: Cameron Dominguez on 09-06-2024 Chloride [Moles/Vol] 106 mmol/L Normal 98-108 [facility] Comment on above: Performed By: #### M 200.1000, L509.7001, L101.9900, L501.6710 #### [facility] [address] [place], [address] Eosinophil percentageOrdered By: Navid Dominguez on 09-06-2024 Eosinophils/100 WBC (Bld) 6.3 % High 0-5 [facility] Comment on above: Performed By: #### L 100.0100, L500.2500, L300.3900 #### [facility] [address] [place], [address] Erythrocyte distribution wid th ratioOrdered By: Navid Dominguez on 09-06-2024 Erythrocyte distribution width (RBC) [Ratio] 17.4 % High 11.6-14.6 [facility] Comment on above: Performed By: #### L 100.0100, L500.2500, L300.3900 #### [facility] [address] [place], [address] Erythrocyte distribution wid th standard deviationOrdered By: Navid Dominguez on 09-06-2024 Erythrocyte distribution width (RBC) [Ratio] 48.2 fl High 35.1-43.9 [facility] Glomerular filtration rate ( GFR) estimation/1.73 sq m using serum, plasma, or whole bOrdered By: Navid Dominguez on 09-06-2024 GFR/1.73 sq M.predicted among non-blacks MDRD (S/P/Bld) [Vol rate/Area] 87 mL/min/{1.73_m2} Normal >60 [facility] Comment on above: mL/min/1.73m2 CKD-EP I Creatinine Equation (2020) Result Comment: mL/m in/1.73m2 CKD-EPI Creatinine Equation (2020) Performed By: #### M 200.1000, L509.7001, L101.9900, L501.6710 #### [facility] [address] [place], [place], [id number] Hemoglobin measurementOrdere d By: Navid Dominguez on 09-06-2024 Hemoglobin (Bld) [Mass/Vol] 10.8 g/dL Low 13.0-16.5 [facility] Comment on above: Performed By: #### L 100.0100, L500.2500, L300.3900 #### [facility] [address] [place], [place], [id number] Immature granulocytes/100 WB C Auto (Bld)Ordered By: Navid Dominguez on 09-06-2024 Immature granulocytes/100 WBC (Bld) 0.400 % 0.0-0.9 [facility] Comment on above: IG% - Immature Granu locytes (promyelocytes, myelocytes and metamyelocytes) > 1% indicates that a LEFT SHIFT is Present. International normalized rat io (INR) calculationOrdered By: Navid Dominguez on 09-06-2024 INR Coag (Bld) [Relative time] 2.4 {INR} [facility] MCV (mean corpuscular volume ) determinationOrdered By: Navid Dominguez on 09-06-2024 MCV (RBC) [Entitic vol] 76.5 fL Low 80-94 [facility] Comment on above: Performed By: #### L 100.0100, L500.2500, L300.3900 #### [facility] [address] [place], [address] Mean corpuscular hemoglobin (MCH) determinationOrdered By: Navid Dominguez on 09-06-2024 MCH (RBC) [Entitic mass] 24.6 pg Low 27.0-32.0 [facility] Comment on above: Performed By: #### L 100.0100, L500.2500, L300.3900 #### [facility] [address] [place], [address] Mean corpuscular hemoglobin concentration (MCHC) determinationOrdered By: Navid Dominguez on 09-06-2024 MCHC (RBC) [Mass/Vol] 32.1 g/dL Normal 32-36 [facility] Comment on above: Performed By: #### L 100.0100, L500.2500, L300.3900 #### [facility] [address] [place], [address] Mean platelet volume determi nationOrdered By: Navid Dominguez on 09-06-2024 Platelet mean volume (Bld) [Entitic vol] 9.4 fL Normal 6.2-12.0 [facility] Comment on above: Performed By: #### L 100.0100, L500.2500, L300.3900 #### [facility] [address] [place], [address] Monocyte percentageOrdered B y: Navid Dominguez on 09-06-2024 Monocytes/100 WBC (Bld) 9.1 % Normal 0-10 [facility] Comment on above: Performed By: #### L 100.0100, L500.2500, L300.3900 #### [facility] [address] [place], [address] Neutrophil percentageOrdered By: Navid Dominguez on 09-06-2024 Neutrophils/100 WBC (Bld) 66.8 % Normal 47-70 [facility] Comment on above: Performed By: #### L 100.0100, L500.2500, L300.3900 #### [facility] [address] [place], [address] Nucleated red blood cell per centageOrdered By: Navid Dominguez on 09-06-2024 Nucleated RBC/100 WBC (Bld) [Ratio] 0 % 0-5 [facility] Platelet countOrdered By: Cameron Dominguez on 09-06-2024 Platelets (Bld) [#/Vol] 325 10*3/uL Normal 150-450 [facility] Comment on above: Performed By: #### L 100.0100, L500.2500, L300.3900 #### [facility] [address] [place], [address] Potassium measurement (mass/ volume)Ordered By: Navid Dominguez on 09-06-2024 Potassium (Unsp spec) [Mass/Vol] 3.5 mmol/L 3.3-5.1 [facility] Prothrombin Time w/INRon INR Coag (PPP) [Relative time] 2.4 {INR} Normal [facility] Comment on above: Performed By: #### M 200.1000, L509.7001, L101.9900, L501.6710 #### [facility] [address] [place], [address] Prothrombin timeOrdered By: Navid Dominguez on 09-06-2024 PT Coag (PPP) [Time] 27.0 s High 11.7-14.9 [facility] Comment on above: Performed By: #### M 200.1000, L509.7001, L101.9900, L501.6710 #### [facility] [address] [place], [address] Serum creatinine measurement (mass/volume)Ordered By: Navid Dominguez on 09-06-2024 Creatinine [Mass/Vol] 0.73 mg/dL Normal 0.70-1.20 [facility] Comment on above: Performed By: #### M 200.1000, L509.7001, L101.9900, L501.6710 #### [facility] [address] [place], [address] Serum glucose measurement (m ass/volume)Ordered By: Navid Dominguez on 09-06-2024 Glucose [Mass/Vol] 109 mg/dL High 70-99 [facility] Comment on above: Performed By: #### M 200.1000, L509.7001, L101.9900, L501.6710 #### [facility] [address] [place], [address] Serum or plasma calcium alvaro urement (mass/volume)Ordered By: Navid Dominguez on 09-06-2024 Calcium [Mass/Vol] 8.7 mg/dL Normal 7.6-11.0 [facility] Comment on above: Performed By: #### M 200.1000, L509.7001, L101.9900, L501.6710 #### [facility] [address] [place], [address] Serum or plasma urea nitroge n measurement (mass/volume)Ordered By: Navid Dominguez on 09-06-2024 Urea nitrogen [Mass/Vol] 11 mg/dL Normal 4-19 [facility] Comment on above: Performed By: #### M 200.1000, L509.7001, L101.9900, L501.6710 #### [facility] [address] [place], [address] Sodium levelOrdered By: Kamilah Dominguez on 09-06-2024 Sodium [Moles/Vol] 141 mmol/L Normal 133-145 [facility] Comment on above: Performed By: #### M 200.1000, L509.7001, L101.9900, L501.6710 #### [facility] [address] [place], [address] White blood cell (WBC) count Ordered By: Navid Dominguez on 09-06-2024 WBC (Bld) [#/Vol] 7.8 10*3/uL Normal 4.4-11.0 [facility] Comment on above: Performed By: #### L 100.0100, L500.2500, L300.3900 #### [facility] [address] [place], [address] Basic Metabolic Profile (BMP )on 09-05-2024 BUN/CRE 13.4 RATIO Normal 10-20 [facility] Comment on above: Performed By: #### M 200.1000, L509.7001, L101.9900, L501.6710 #### [facility] [address] [place], [address] Calcium [Mass/Vol] 8.6 mg/dL Normal 7.6-11.0 [facility] Comment on above: Performed By: #### M 200.1000, L509.7001, L101.9900, L501.6710 #### [facility] [address] [place], [address] Chloride [Moles/Vol] 105 mmol/L Normal 98-108 [facility] Comment on above: Performed By: #### M 200.1000, L509.7001, L101.9900, L501.6710 #### [facility] [address] [place], [address] CO2 [Moles/Vol] 21.9 mmol/L Normal 21.0-32.0 [facility] Comment on above: Performed By: #### M 200.1000, L509.7001, L101.9900, L501.6710 #### [facility] [address] [place], [address] Creatinine [Mass/Vol] 0.62 mg/dL Low 0.70-1.20 [facility] Comment on above: Performed By: #### M 200.1000, L509.7001, L101.9900, L501.6710 #### [facility] [address] [place], [address] ECRCL 64.10 ml/min Normal 50-250 [facility] Comment on above: Performed By: #### M 200.1000, L509.7001, L101.9900, L501.6710 #### [facility] [address] [place], [address] GAP 12 Normal 5-15 [facility] Comment on above: Performed By: #### M 200.1000, L509.7001, L101.9900, L501.6710 #### [facility] [address] [place], [address] GFR/1.73 sq M.predicted among non-blacks MDRD (S/P/Bld) [Vol rate/Area] 91 mL/min/{1.73_m2} Normal >60 [facility] Comment on above: Result Comment: mL/m in/1.73m2 CKD-EPI Creatinine Equation (2020) Performed By: #### M 200.1000, L509.7001, L101.9900, L501.6710 #### [facility] [address] [place], [address] Glucose [Mass/Vol] 119 mg/dL High 70-99 [facility] Comment on above: Performed By: #### M 200.1000, L509.7001, L101.9900, L501.6710 #### [facility] [address] [place], [address] Potassium [Moles/Vol] 3.3 mmol/L Normal 3.3-5.1 [facility] Comment on above: Performed By: #### M 200.1000, L509.7001, L101.9900, L501.6710 #### [facility] [address] [place], [address] Sodium [Moles/Vol] 139 mmol/L Normal 133-145 [facility] Comment on above: Performed By: #### M 200.1000, L509.7001, L101.9900, L501.6710 #### [facility] [address] [place], [address] Urea nitrogen [Mass/Vol] 8 mg/dL Normal 4-19 [facility] Comment on above: Performed By: #### M 200.1000, L509.7001, L101.9900, L501.6710 #### [facility] [address] [place], [address] Bilirubin Test strip Ql (U)O rdered By: Marta Black on 09-05-2024 Bilirubin Ql (U) Negative Negative [facility] CBC W/Diff, Automatedon 08-21 Absolute Lymph 0.96 X10 3/uL Normal 0.83-4.51 [facility] Comment on above: Performed By: #### M 200.1000, L509.7001, L101.9900, L501.6710 #### [facility] [address] [place], [address] Absolute Neut 7.6 X10 3/uL Normal 2.0-7.7 [facility] Comment on above: Performed By: #### M 200.1000, L509.7001, L101.9900, L501.6710 #### [facility] [address] [place], [address] Basophils/100 WBC (Bld) 0.7 % Normal 0-1 [facility] Comment on above: Performed By: #### M 200.1000, L509.7001, L101.9900, L501.6710 #### [facility] [address] [place], [address] Eosinophils/100 WBC (Bld) 4.0 % Normal 0-5 [facility] Comment on above: Performed By: #### M 200.1000, L509.7001, L101.9900, L501.6710 #### [facility] [address] [place], [address] Erythrocyte distribution width (RBC) [Ratio] 17.6 % High 11.6-14.6 [facility] Comment on above: Performed By: #### M 200.1000, L509.7001, L101.9900, L501.6710 #### [facility] [address] [place], [address] Hematocrit (Bld) [Volume fraction] 35.3 % Low 40-54 [facility] Comment on above: Performed By: #### M 200.1000, L509.7001, L101.9900, L501.6710 #### [facility] [address] [place], [address] Hemoglobin (Bld) [Mass/Vol] 11.3 g/dL Low 13.0-16.5 [facility] Comment on above: Performed By: #### M 200.1000, L509.7001, L101.9900, L501.6710 #### [facility] [address] [place], [address] IG% 0.400 Normal 0.0-0.9 [facility] Comment on above: Result Comment: IG% - Immature Granulocytes (promyelocytes, myelocytes and metamyelocytes) > 1% indicates that a LEFT SHIFT is Present. Performed By: #### M 200.1000, L509.7001, L101.9900, L501.6710 #### [facility] [address] [place], [address] Lymphocytes/100 WBC (Bld) 9.8 % Low 19-41 [facility] Comment on above: Performed By: #### M 200.1000, L509.7001, L101.9900, L501.6710 #### [facility] [address] [place], [address] MCH (RBC) [Entitic mass] 24.4 pg Low 27.0-32.0 [facility] Comment on above: Performed By: #### M 200.1000, L509.7001, L101.9900, L501.6710 #### [facility] [address] [place], [address] MCHC (RBC) [Mass/Vol] 32.0 g/dL Normal 32-36 [facility] Comment on above: Performed By: #### M 200.1000, L509.7001, L101.9900, L501.6710 #### [facility] [address] [place], [address] MCV (RBC) [Entitic vol] 76.2 fL Low 80-94 [facility] Comment on above: Performed By: #### M 200.1000, L509.7001, L101.9900, L501.6710 #### [facility] [address] [place], [address] Monocytes/100 WBC (Bld) 7.9 % Normal 0-10 [facility] Comment on above: Performed By: #### M 200.1000, L509.7001, L101.9900, L501.6710 #### [facility] [address] [place], [address] Neutrophils/100 WBC (Bld) 77.2 % High 47-70 [facility] Comment on above: Performed By: #### M 200.1000, L509.7001, L101.9900, L501.6710 #### [facility] [address] [place], [address] Nucleated RBC (Bld) [#/Vol] 0 10*3/uL Normal 0-5 [facility] Comment on above: Performed By: #### M 200.1000, L509.7001, L101.9900, L501.6710 #### [facility] [address] [place], [address] Platelet mean volume (Bld) [Entitic vol] 9.3 fL Normal 6.2-12.0 [facility] Comment on above: Performed By: #### M 200.1000, L509.7001, L101.9900, L501.6710 #### [facility] [address] [place], [address] Platelets (Bld) [#/Vol] 329 10*3/uL Normal 150-450 [facility] Comment on above: Performed By: #### M 200.1000, L509.7001, L101.9900, L501.6710 #### [facility] [address] [place], [address] RBC (Bld) [#/Vol] 4.63 10*6/uL Normal 4.6-6.2 [facility] Comment on above: Performed By: #### M 200.1000, L509.7001, L101.9900, L501.6710 #### [facility] [address] [place], [address] RDW SD 47.9 fl High 35.1-43.9 [facility] Comment on above: Performed By: #### M 200.1000, L509.7001, L101.9900, L501.6710 #### [facility] [address] [place], [address] WBC (Bld) [#/Vol] 9.8 10*3/uL Normal 4.4-11.0 [facility] Comment on above: Performed By: #### M 200.1000, L509.7001, L101.9900, L501.6710 #### [facility] [address] [place], [place], [address] Ketones Test strip Ql (U)Ord ered By: Marta Black on 09-05-2024 Ketones Ql (U) Negative Negative [facility] Microscopic analysis of urin e for red blood cells (RBC)Ordered By: Marta Black on 09-05-2024 Microscopic analysis of urine for red blood cells (RBC) 0-5 SEEN /hpf 0-5 [facility] Mucus LM Ql (Urine sed)Order ed By: Marta Black on 09-05-2024 Mucus Ql (Urine sed) 0 SEEN /hpf [facility] Nitrite Test strip Ql (U)Ord ered By: Marta Black on 09-05-2024 Nitrite Ql (U) Negative Negative [facility] Protein Test strip Ql (U)Ord ered By: Marta Black on 09-05-2024 Protein Ql (U) 15 mg/dl High Negative [facility] Prothrombin Time w/INRon INR Coag (PPP) [Relative time] 2.2 {INR} Normal [facility] Comment on above: Performed By: #### M 200.1000, L509.7001, L101.9900, L501.6710 #### [facility] [address] [place], [address] PT Coag (PPP) [Time] 24.7 s High 11.7-14.9 [facility] Comment on above: Performed By: #### M 200.1000, L509.7001, L101.9900, L501.6710 #### [facility] [address] [place], [address] Squamous epithelial cells de tection in urine sediment by light microscopyOrdered By: Marta Black on 09-05-2024 Epithelial cells.squamous LM Ql (Urine sed) 0 SEEN /hpf 0-5 [facility] Urinalysis, Completeon 09-05 BACTERIA RARE Normal None Seen [facility] Comment on above: Order Comment: CLEAN CATCH Performed By: #### M 200.1000, L509.7001, L101.9900, L501.6710 #### [facility] [address] [place], [address] RBC 0-5 SEEN Normal 0-5 [facility] Comment on above: Order Comment: CLEAN CATCH Performed By: #### M 200.1000, L509.7001, L101.9900, L501.6710 #### [facility] [address] [place], [address] WBC 0-5 SEEN Normal 0-5 [facility] Comment on above: Order Comment: CLEAN CATCH Performed By: #### M 200.1000, L509.7001, L101.9900, L501.6710 #### [facility] [address] [place], [address] BILIRUBIN URINE Negative Normal Negative [facility] Comment on above: Order Comment: CLEAN CATCH Performed By: #### M 200.1000, L509.7001, L101.9900, L501.6710 #### [facility] [address] [place], [address] Clarity (U) Clear Normal Clear [facility] Comment on above: Order Comment: CLEAN CATCH Performed By: #### M 200.1000, L509.7001, L101.9900, L501.6710 #### [facility] [address] [place], [address] Color (U) Straw Normal Yellow [facility] Comment on above: Order Comment: CLEAN CATCH Performed By: #### M 200.1000, L509.7001, L101.9900, L501.6710 #### [facility] [address] [place], [address] GLUCOSE, UR Normal Normal Normal [facility] Comment on above: Order Comment: CLEAN CATCH Performed By: #### M 200.1000, L509.7001, L101.9900, L501.6710 #### [facility] [address] [place], [address] KETONE UR Negative Normal Negative [facility] Comment on above: Order Comment: CLEAN CATCH Performed By: #### M 200.1000, L509.7001, L101.9900, L501.6710 #### [facility] [address] [place], [address] LEUK ESTERASE Negative Normal Negative [facility] Comment on above: Order Comment: CLEAN CATCH Performed By: #### M 200.1000, L509.7001, L101.9900, L501.6710 #### [facility] [address] [place], [address] Nitrite Ql (U) Negative Normal Negative [facility] Comment on above: Order Comment: CLEAN CATCH Performed By: #### M 200.1000, L509.7001, L101.9900, L501.6710 #### [facility] [address] [place], [address] OCCULT BLOOD-UR 25 /ul Abnormal Negative [facility] Comment on above: Order Comment: CLEAN CATCH Performed By: #### M 200.1000, L509.7001, L101.9900, L501.6710 #### [facility] [address] [place], [address] pH UR 7.0 Normal 5.0 - 8.0 [facility] Comment on above: Order Comment: CLEAN CATCH Performed By: #### M 200.1000, L509.7001, L101.9900, L501.6710 #### [facility] [address] [place], [address] PROT DIPSTX 15 mg/dl Abnormal Negative [facility] Comment on above: Order Comment: CLEAN CATCH Performed By: #### M 200.1000, L509.7001, L101.9900, L501.6710 #### [facility] [address] [place], [address] SP.GR. DIPSTX 1.005 Normal 1.002-1.03 0 [facility] Comment on above: Order Comment: CLEAN CATCH Performed By: #### M 200.1000, L509.7001, L101.9900, L501.6710 #### [facility] [address] [place], [address] UROBILI Normal Normal Normal [facility] Comment on above: Order Comment: CLEAN CATCH Performed By: #### M 200.1000, L509.7001, L101.9900, L501.6710 #### [facility] [address] [place], [address] EPI,SQUAMOUS 0 SEEN Normal 0-5 [facility] Comment on above: Order Comment: CLEAN CATCH Performed By: #### M 200.1000, L509.7001, L101.9900, L501.6710 #### [facility] [address] [place], [address] Mucus Ql (Urine sed) 0 SEEN Normal [facility] Comment on above: Order Comment: CLEAN CATCH Performed By: #### M 200.1000, L509.7001, L101.9900, L501.6710 #### [facility] [address] [place], [address] Urine clarityOrdered By: Magnolia Black on 09-05-2024 Clarity (U) Clear Clear [facility] Urine color determinationOrd ered By: Marta Black on 09-05-2024 Color (U) Straw Yellow [facility] Urine glucose detectionOrder ed By: Marta Black on 09-05-2024 Glucose Ql (U) Normal mg/dl Normal [facility] Urine leukocyte esterase det ection by dipstickOrdered By: Marta Black on 09-05-2024 Leukocyte esterase Test strip Ql (U) Negative Negative [facility] Urine pHOrdered By: Marta Black on 09-05-2024 pH (U) 7.0 [pH] 5.0 - 8.0 [facility] Urine sediment bacteria coun t by microscopy (number/high power field)Ordered By: Marta Black on 09-05-2024 Bacteria LM.HPF (Urine sed) [#/Area] RARE /hpf None Seen [facility] Urine specific gravity measu rementOrdered By: Marta Black on 09-05-2024 Specific gravity (U) [Rel density] 1.005 1.002-1.03 0 [facility] Urine urobilinogen measureme ntOrdered By: Marta Black on 09-05-2024 Urobilinogen Ql (U) Normal mg/dl Normal [facility] White blood cell countOrdere d By: Marta Black on 09-05-2024 White blood cell count 0-5 SEEN /hpf 0-5 [facility] Basic Metabolic Profile (BMP )on 09-04-2024 BUN/CRE 17.3 RATIO Normal 10-20 [facility] Comment on above: Performed By: #### M 200.1000, L509.7001, L101.9900, L501.6710 #### [facility] [address] [place], [address] Calcium [Mass/Vol] 8.2 mg/dL Normal 7.6-11.0 [facility] Comment on above: Performed By: #### M 200.1000, L509.7001, L101.9900, L501.6710 #### [facility] [address] [place], [address] Chloride [Moles/Vol] 107 mmol/L Normal 98-108 [facility] Comment on above: Performed By: #### M 200.1000, L509.7001, L101.9900, L501.6710 #### [facility] [address] [place], [address] CO2 [Moles/Vol] 20.9 mmol/L Low 21.0-32.0 [facility] Comment on above: Performed By: #### M 200.1000, L509.7001, L101.9900, L501.6710 #### [facility] [address] [place], [address] Creatinine [Mass/Vol] 0.72 mg/dL Normal 0.70-1.20 [facility] Comment on above: Performed By: #### M 200.1000, L509.7001, L101.9900, L501.6710 #### [facility] [address] [place], [address] ECRCL 64.10 ml/min Normal 50-250 [facility] Comment on above: Performed By: #### M 200.1000, L509.7001, L101.9900, L501.6710 #### [facility] [address] [place], [address] GAP 11 Normal 5-15 [facility] Comment on above: Performed By: #### M 200.1000, L509.7001, L101.9900, L501.6710 #### [facility] [address] [place], [address] GFR/1.73 sq M.predicted among non-blacks MDRD (S/P/Bld) [Vol rate/Area] 87 mL/min/{1.73_m2} Normal >60 [facility] Comment on above: Result Comment: mL/m in/1.73m2 CKD-EPI Creatinine Equation (2020) Performed By: #### M 200.1000, L509.7001, L101.9900, L501.6710 #### [facility] [address] [place], [address] Glucose [Mass/Vol] 120 mg/dL High 70-99 [facility] Comment on above: Performed By: #### M 200.1000, L509.7001, L101.9900, L501.6710 #### [facility] [address] [place], [address] Potassium [Moles/Vol] 3.5 mmol/L Normal 3.3-5.1 [facility] Comment on above: Performed By: #### M 200.1000, L509.7001, L101.9900, L501.6710 #### [facility] [address] [place], [address] Sodium [Moles/Vol] 139 mmol/L Normal 133-145 [facility] Comment on above: Performed By: #### M 200.1000, L509.7001, L101.9900, L501.6710 #### [facility] [address] [place], [address] Urea nitrogen [Mass/Vol] 12 mg/dL Normal 4-19 [facility] Comment on above: Performed By: #### M 200.1000, L509.7001, L101.9900, L501.6710 #### [facility] [address] [place], [address] CBC W/Diff, Automatedon 08-21-2024 Absolute Lymph 0.89 X10 3/uL Normal 0.83-4.51 [facility] Comment on above: Performed By: #### M 200.1000, L509.7001, L101.9900, L501.6710 #### [facility] [address] [place], [address] Absolute Neut 8.9 X10 3/uL High 2.0-7.7 [facility] Comment on above: Performed By: #### M 200.1000, L509.7001, L101.9900, L501.6710 #### [facility] [address] [place], [address] Basophils/100 WBC (Bld) 0.8 % Normal 0-1 [facility] Comment on above: Performed By: #### M 200.1000, L509.7001, L101.9900, L501.6710 #### [facility] [address] [place], [address] Eosinophils/100 WBC (Bld) 5.3 % High 0-5 [facility] Comment on above: Performed By: #### M 200.1000, L509.7001, L101.9900, L501.6710 #### [facility] [address] [place], [address] Erythrocyte distribution width (RBC) [Ratio] 17.5 % High 11.6-14.6 [facility] Comment on above: Performed By: #### M 200.1000, L509.7001, L101.9900, L501.6710 #### [facility] [address] [place], [address] Hematocrit (Bld) [Volume fraction] 33.3 % Low 40-54 [facility] Comment on above: Performed By: #### M 200.1000, L509.7001, L101.9900, L501.6710 #### [facility] [address] [place], [address] Hemoglobin (Bld) [Mass/Vol] 10.7 g/dL Low 13.0-16.5 [facility] Comment on above: Performed By: #### M 200.1000, L509.7001, L101.9900, L501.6710 #### [facility] [address] [place], [address] IG% 0.400 Normal 0.0-0.9 [facility] Comment on above: Result Comment: IG% - Immature Granulocytes (promyelocytes, myelocytes and metamyelocytes) > 1% indicates that a LEFT SHIFT is Present. Performed By: #### M 200.1000, L509.7001, L101.9900, L501.6710 #### [facility] [address] [place], [address] Lymphocytes/100 WBC (Bld) 7.8 % Low 19-41 [facility] Comment on above: Performed By: #### M 200.1000, L509.7001, L101.9900, L501.6710 #### [facility] [address] [place], [address] MCH (RBC) [Entitic mass] 24.6 pg Low 27.0-32.0 [facility] Comment on above: Performed By: #### M 200.1000, L509.7001, L101.9900, L501.6710 #### [facility] [address] [place], [address] MCHC (RBC) [Mass/Vol] 32.1 g/dL Normal 32-36 [facility] Comment on above: Performed By: #### M 200.1000, L509.7001, L101.9900, L501.6710 #### [facility] [address] [place], [address] MCV (RBC) [Entitic vol] 76.6 fL Low 80-94 [facility] Comment on above: Performed By: #### M 200.1000, L509.7001, L101.9900, L501.6710 #### [facility] [address] [place], [address] Monocytes/100 WBC (Bld) 7.7 % Normal 0-10 [facility] Comment on above: Performed By: #### M 200.1000, L509.7001, L101.9900, L501.6710 #### [facility] [address] [place], [address] Neutrophils/100 WBC (Bld) 78.0 % High 47-70 [facility] Comment on above: Performed By: #### M 200.1000, L509.7001, L101.9900, L501.6710 #### [facility] [address] [place], [address] Nucleated RBC (Bld) [#/Vol] 0 10*3/uL Normal 0-5 [facility] Comment on above: Performed By: #### M 200.1000, L509.7001, L101.9900, L501.6710 #### [facility] [address] [place], [address] Platelet mean volume (Bld) [Entitic vol] 10.6 fL Normal 6.2-12.0 [facility] Comment on above: Performed By: #### M 200.1000, L509.7001, L101.9900, L501.6710 #### [facility] [address] [place], [address] Platelets (Bld) [#/Vol] 305 10*3/uL Normal 150-450 [facility] Comment on above: Performed By: #### M 200.1000, L509.7001, L101.9900, L501.6710 #### [facility] [address] [place], [address] RBC (Bld) [#/Vol] 4.35 10*6/uL Low 4.6-6.2 [facility] Comment on above: Performed By: #### M 200.1000, L509.7001, L101.9900, L501.6710 #### [facility] [address] [place], [address] RDW SD 48.3 fl High 35.1-43.9 [facility] Comment on above: Performed By: #### M 200.1000, L509.7001, L101.9900, L501.6710 #### [facility] [address] [place], [address] WBC (Bld) [#/Vol] 11.4 10*3/uL High 4.4-11.0 [facility] Comment on above: Performed By: #### M 200.1000, L509.7001, L101.9900, L501.6710 #### [facility] [address] [place], [address] Prothrombin Time w/INRon INR Coag (PPP) [Relative time] 1.9 {INR} Normal [facility] Comment on above: Performed By: #### L 300.3900 #### [facility] [address] [place], [address] PT Coag (PPP) [Time] 21.8 s High 11.7-14.9 [facility] Comment on above: Performed By: #### L 300.3900 #### [facility] [address] [place], [address] Basic Metabolic Profile (BMP )on 09-03-2024 BUN/CRE 13.3 RATIO Normal 10-20 [facility] Comment on above: Performed By: #### M 200.1000, L509.7001, L101.9900, L501.6710 #### [facility] [address] [place], [address] Calcium [Mass/Vol] 8.5 mg/dL Normal 7.6-11.0 [facility] Comment on above: Performed By: #### M 200.1000, L509.7001, L101.9900, L501.6710 #### [facility] [address] [place], [address] Chloride [Moles/Vol] 104 mmol/L Normal 98-108 [facility] Comment on above: Performed By: #### M 200.1000, L509.7001, L101.9900, L501.6710 #### [facility] [address] [place], [address] CO2 [Moles/Vol] 19.1 mmol/L Low 21.0-32.0 [facility] Comment on above: Performed By: #### M 200.1000, L509.7001, L101.9900, L501.6710 #### [facility] [address] [place], [address] Creatinine [Mass/Vol] 0.74 mg/dL Normal 0.70-1.20 [facility] Comment on above: Performed By: #### M 200.1000, L509.7001, L101.9900, L501.6710 #### [facility] [address] [place], [address] ECRCL 64.10 ml/min Normal 50-250 [facility] Comment on above: Performed By: #### M 200.1000, L509.7001, L101.9900, L501.6710 #### [facility] [address] [place], [address] GAP 13 Normal 5-15 [facility] Comment on above: Performed By: #### M 200.1000, L509.7001, L101.9900, L501.6710 #### [facility] [address] [place], [address] GFR/1.73 sq M.predicted among non-blacks MDRD (S/P/Bld) [Vol rate/Area] 87 mL/min/{1.73_m2} Normal >60 [facility] Comment on above: Result Comment: mL/m in/1.73m2 CKD-EPI Creatinine Equation (2020) Performed By: #### M 200.1000, L509.7001, L101.9900, L501.6710 #### [facility] [address] [place], [address] Glucose [Mass/Vol] 111 mg/dL High 70-99 [facility] Comment on above: Performed By: #### M 200.1000, L509.7001, L101.9900, L501.6710 #### [facility] [address] [place], [address] Potassium [Moles/Vol] 3.5 mmol/L Normal 3.3-5.1 [facility] Comment on above: Performed By: #### M 200.1000, L509.7001, L101.9900, L501.6710 #### [facility] [address] [place], [address] Sodium [Moles/Vol] 137 mmol/L Normal 133-145 [facility] Comment on above: Performed By: #### M 200.1000, L509.7001, L101.9900, L501.6710 #### [facility] [address] [place], [address] Urea nitrogen [Mass/Vol] 10 mg/dL Normal 4-19 [facility] Comment on above: Performed By: #### M 200.1000, L509.7001, L101.9900, L501.6710 #### [facility] [address] [place], [address] CBC W/Diff, Automatedon 06-1 -2024 Absolute Lymph 0.82 X10 3/uL Low 0.83-4.51 [facility] Comment on above: Performed By: #### M 200.1000, L509.7001, L101.9900, L501.6710 #### [facility] [address] [place], [address] Absolute Neut 10.2 X10 3/uL High 2.0-7.7 [facility] Comment on above: Performed By: #### M 200.1000, L509.7001, L101.9900, L501.6710 #### [facility] [address] [place], [address] Basophils/100 WBC (Bld) 0.7 % Normal 0-1 [facility] Comment on above: Performed By: #### M 200.1000, L509.7001, L101.9900, L501.6710 #### [facility] [address] [place], [address] Eosinophils/100 WBC (Bld) 2.8 % Normal 0-5 [facility] Comment on above: Performed By: #### M 200.1000, L509.7001, L101.9900, L501.6710 #### [facility] [address] [place], [address] Erythrocyte distribution width (RBC) [Ratio] 17.5 % High 11.6-14.6 [facility] Comment on above: Performed By: #### M 200.1000, L509.7001, L101.9900, L501.6710 #### [facility] [address] [place], [address] Hematocrit (Bld) [Volume fraction] 35.6 % Low 40-54 [facility] Comment on above: Performed By: #### M 200.1000, L509.7001, L101.9900, L501.6710 #### [facility] [address] [place], [address] Hemoglobin (Bld) [Mass/Vol] 11.3 g/dL Low 13.0-16.5 [facility] Comment on above: Performed By: #### M 200.1000, L509.7001, L101.9900, L501.6710 #### [facility] [address] [place], [address] IG% 0.400 Normal 0.0-0.9 [facility] Comment on above: Result Comment: IG% - Immature Granulocytes (promyelocytes, myelocytes and metamyelocytes) > 1% indicates that a LEFT SHIFT is Present. Performed By: #### M 200.1000, L509.7001, L101.9900, L501.6710 #### [facility] [address] [place], [address] Lymphocytes/100 WBC (Bld) 6.7 % Low 19-41 [facility] Comment on above: Performed By: #### M 200.1000, L509.7001, L101.9900, L501.6710 #### [facility] [address] [place], [address] MCH (RBC) [Entitic mass] 24.7 pg Low 27.0-32.0 [facility] Comment on above: Performed By: #### M 200.1000, L509.7001, L101.9900, L501.6710 #### [facility] [address] [place], [address] MCHC (RBC) [Mass/Vol] 31.7 g/dL Low 32-36 [facility] Comment on above: Performed By: #### M 200.1000, L509.7001, L101.9900, L501.6710 #### [facility] [address] [place], [address] MCV (RBC) [Entitic vol] 77.7 fL Low 80-94 [facility] Comment on above: Performed By: #### M 200.1000, L509.7001, L101.9900, L501.6710 #### [facility] [address] [place], [address] Monocytes/100 WBC (Bld) 6.0 % Normal 0-10 [facility] Comment on above: Performed By: #### M 200.1000, L509.7001, L101.9900, L501.6710 #### [facility] [address] [place], [address] Neutrophils/100 WBC (Bld) 83.4 % High 47-70 [facility] Comment on above: Performed By: #### M 200.1000, L509.7001, L101.9900, L501.6710 #### [facility] [address] [place], [address] Nucleated RBC (Bld) [#/Vol] 0 10*3/uL Normal 0-5 [facility] Comment on above: Performed By: #### M 200.1000, L509.7001, L101.9900, L501.6710 #### [facility] [address] [place], [address] Platelet mean volume (Bld) [Entitic vol] 9.9 fL Normal 6.2-12.0 [facility] Comment on above: Performed By: #### M 200.1000, L509.7001, L101.9900, L501.6710 #### [facility] [address] [place], [address] Platelets (Bld) [#/Vol] 252 10*3/uL Normal 150-450 [facility] Comment on above: Performed By: #### M 200.1000, L509.7001, L101.9900, L501.6710 #### [facility] [address] [place], [address] RBC (Bld) [#/Vol] 4.58 10*6/uL Low 4.6-6.2 [facility] Comment on above: Performed By: #### M 200.1000, L509.7001, L101.9900, L501.6710 #### [facility] [address] [place], [address] RDW SD 48.2 fl High 35.1-43.9 [facility] Comment on above: Performed By: #### M 200.1000, L509.7001, L101.9900, L501.6710 #### [facility] [address] [place], [address] WBC (Bld) [#/Vol] 12.3 10*3/uL High 4.4-11.0 [facility] Comment on above: Performed By: #### M 200.1000, L509.7001, L101.9900, L501.6710 #### [facility] [address] [place], [address] Prothrombin Time w/INRon INR Coag (PPP) [Relative time] 1.8 {INR} Normal [facility] Comment on above: Performed By: #### L 300.3900 #### [facility] [address] [place], [address] PT Coag (PPP) [Time] 20.9 s High 11.7-14.9 [facility] Comment on above: Performed By: #### L 300.3900 #### [facility] [address] [place], [address] Trough vancomycin levelOrder ed By: Marta Black on 09-03-2024 Vancomycin trough [Mass/Vol] 8.2 ug/mL 5.0-15.0 [facility] Comment on above: Recommended goal tro [...] therapy recommended for serious lifethreatening infections include:- Gckseohxbc-Kvzwrsdaolbh-Etkrwhtqm (Ventilator/Healtcare Associated)-Sepsis PLEASE CONTACT PHARMACY SERVICES (#[id number]) FOR INTERPRETATIONOF RESULTS. Vancomycin, Trough Levelon 0 09-03-2024 VANCO, TROUGH 8.2 ug/mL Normal 5.0-15.0 [facility] Comment on above: Order Comment: Comme nts: Trough to be drawn 30 mins prior to scheduled [id number] Result Comment: Ilya mmended goal trough ranges [...] (Ventilator/Healtcare Associated) -Sepsis PLEASE CONTACT PHARMACY SERVICES (#[id number]) FOR INTERPRETATION OF RESULTS. Performed By: #### M 200.1000, L509.7001, L101.9900, L501.6710 #### [facility] [address] [place], [address] Basic Metabolic Profile (BMP )on 09-02-2024 BUN/CRE 18.9 RATIO Normal 10-20 [facility] Comment on above: Performed By: #### M 200.1000, L509.7001, L101.9900, L501.6710 #### [facility] [address] [place], [address] Calcium [Mass/Vol] 8.5 mg/dL Normal 7.6-11.0 [facility] Comment on above: Performed By: #### M 200.1000, L509.7001, L101.9900, L501.6710 #### [facility] [address] [place], [address] Chloride [Moles/Vol] 105 mmol/L Normal 98-108 [facility] Comment on above: Performed By: #### M 200.1000, L509.7001, L101.9900, L501.6710 #### [facility] [address] [place], [address] CO2 [Moles/Vol] 14.2 mmol/L Low 21.0-32.0 [facility] Comment on above: Performed By: #### M 200.1000, L509.7001, L101.9900, L501.6710 #### [facility] [address] [place], [address] Creatinine [Mass/Vol] 0.75 mg/dL Normal 0.70-1.20 [facility] Comment on above: Performed By: #### M 200.1000, L509.7001, L101.9900, L501.6710 #### [facility] [address] [place], [address] ECRCL 64.10 ml/min Normal 50-250 [facility] Comment on above: Performed By: #### M 200.1000, L509.7001, L101.9900, L501.6710 #### [facility] [address] [place], [address] GAP 15 Normal 5-15 [facility] Comment on above: Performed By: #### M 200.1000, L509.7001, L101.9900, L501.6710 #### [facility] [address] [place], [address] GFR/1.73 sq M.predicted among non-blacks MDRD (S/P/Bld) [Vol rate/Area] 86 mL/min/{1.73_m2} Normal >60 [facility] Comment on above: Result Comment: mL/m in/1.73m2 CKD-EPI Creatinine Equation (2020) Performed By: #### M 200.1000, L509.7001, L101.9900, L501.6710 #### [facility] [address] [place], [address] Glucose [Mass/Vol] 105 mg/dL High 70-99 [facility] Comment on above: Performed By: #### M 200.1000, L509.7001, L101.9900, L501.6710 #### [facility] [address] [place], [address] Potassium [Moles/Vol] 4.3 mmol/L Normal 3.3-5.1 [facility] Comment on above: Result Comment: Hemo lysis present, Results??could be affected. ?? Performed By: #### M 200.1000, L509.7001, L101.9900, L501.6710 #### [facility] [address] [place], [address] Sodium [Moles/Vol] 135 mmol/L Normal 133-145 [facility] Comment on above: Performed By: #### M 200.1000, L509.7001, L101.9900, L501.6710 #### [facility] [address] [place], [address] Urea nitrogen [Mass/Vol] 14 mg/dL Normal 4-19 [facility] Comment on above: Performed By: #### M 200.1000, L509.7001, L101.9900, L501.6710 #### [facility] [address] [place], [address] CBC W/Diff, Automatedon 06-03 25-2024 Absolute Lymph 0.52 X10 3/uL Low 0.83-4.51 [facility] Comment on above: Performed By: #### M 200.1000, L509.7001, L101.9900, L501.6710 #### [facility] [address] [place], [address] Absolute Neut 12.1 X10 3/uL High 2.0-7.7 [facility] Comment on above: Performed By: #### M 200.1000, L509.7001, L101.9900, L501.6710 #### [facility] [address] [place], [address] Basophils/100 WBC (Bld) 0.6 % Normal 0-1 [facility] Comment on above: Performed By: #### M 200.1000, L509.7001, L101.9900, L501.6710 #### [facility] [address] [place], [address] Eosinophils/100 WBC (Bld) 2.2 % Normal 0-5 [facility] Comment on above: Performed By: #### M 200.1000, L509.7001, L101.9900, L501.6710 #### [facility] [address] [place], [address] Erythrocyte distribution width (RBC) [Ratio] 17.8 % High 11.6-14.6 [facility] Comment on above: Performed By: #### M 200.1000, L509.7001, L101.9900, L501.6710 #### [facility] [address] [place], [address] Hematocrit (Bld) [Volume fraction] 39.9 % Low 40-54 [facility] Comment on above: Performed By: #### M 200.1000, L509.7001, L101.9900, L501.6710 #### [facility] [address] [place], [address] Hemoglobin (Bld) [Mass/Vol] 11.9 g/dL Low 13.0-16.5 [facility] Comment on above: Performed By: #### M 200.1000, L509.7001, L101.9900, L501.6710 #### [facility] [address] [place], [address] IG% 0.700 Normal 0.0-0.9 [facility] Comment on above: Result Comment: IG% - Immature Granulocytes (promyelocytes, myelocytes and metamyelocytes) > 1% indicates that a LEFT SHIFT is Present. Performed By: #### M 200.1000, L509.7001, L101.9900, L501.6710 #### [facility] [address] [place], [address] Lymphocytes/100 WBC (Bld) 3.8 % Low 19-41 [facility] Comment on above: Performed By: #### M 200.1000, L509.7001, L101.9900, L501.6710 #### [facility] [address] [place], [address] MCH (RBC) [Entitic mass] 24.5 pg Low 27.0-32.0 [facility] Comment on above: Performed By: #### M 200.1000, L509.7001, L101.9900, L501.6710 #### [facility] [address] [place], [address] MCHC (RBC) [Mass/Vol] 29.8 g/dL Low 32-36 [facility] Comment on above: Performed By: #### M 200.1000, L509.7001, L101.9900, L501.6710 #### [facility] [address] [place], [address] MCV (RBC) [Entitic vol] 82.3 fL Normal 80-94 [facility] Comment on above: Performed By: #### M 200.1000, L509.7001, L101.9900, L501.6710 #### [facility] [address] [place], [address] Monocytes/100 WBC (Bld) 4.8 % Normal 0-10 [facility] Comment on above: Performed By: #### M 200.1000, L509.7001, L101.9900, L501.6710 #### [facility] [address] [place], [address] Neutrophils/100 WBC (Bld) 87.9 % High 47-70 [facility] Comment on above: Performed By: #### M 200.1000, L509.7001, L101.9900, L501.6710 #### [facility] [address] [place], [address] Nucleated RBC (Bld) [#/Vol] 0 10*3/uL Normal 0-5 [facility] Comment on above: Performed By: #### M 200.1000, L509.7001, L101.9900, L501.6710 #### [facility] [address] [place], [address] Platelet mean volume (Bld) [Entitic vol] 10.6 fL Normal 6.2-12.0 [facility] Comment on above: Performed By: #### M 200.1000, L509.7001, L101.9900, L501.6710 #### [facility] [address] [place], [address] Platelets (Bld) [#/Vol] 227 10*3/uL Normal 150-450 [facility] Comment on above: Performed By: #### M 200.1000, L509.7001, L101.9900, L501.6710 #### [facility] [address] [place], [address] RBC (Bld) [#/Vol] 4.85 10*6/uL Normal 4.6-6.2 [facility] Comment on above: Performed By: #### M 200.1000, L509.7001, L101.9900, L501.6710 #### [facility] [address] [place], [address] RDW SD 52.3 fl High 35.1-43.9 [facility] Comment on above: Performed By: #### M 200.1000, L509.7001, L101.9900, L501.6710 #### [facility] [address] [place], [address] WBC (Bld) [#/Vol] 13.8 10*3/uL High 4.4-11.0 [facility] Comment on above: Performed By: #### M 200.1000, L509.7001, L101.9900, L501.6710 #### [facility] [address] [place], [address] Prothrombin Time w/INRon INR Coag (PPP) [Relative time] 1.9 {INR} Normal [facility] Comment on above: Performed By: #### M 200.1000, L509.7001, L101.9900, L501.6710 #### [facility] [address] [place], [address] PT Coag (PPP) [Time] 22.1 s High 11.7-14.9 [facility] Comment on above: Performed By: #### M 200.1000, L509.7001, L101.9900, L501.6710 #### [facility] [address] [place], [address] RESPIRATORY PANEL MOLECULARo n 09-02-2024 RP PANEL ADENOVIRUS Not Detected INFLUENZA A Not Detected INFLUENZA A (SUBTYPE H1) Not Detected INFLUENZA A (SUBTYPE H3) Not Detected INFLUENZA B Not Detected HUMAN METAPHNEUMO Not Detected PARAINFLUENZA 1 Not Detected PARAINFLUENZA 2 Not Detected PARAINFLUENZA 3 Not Detected PARAINFLUENZA 4 Not Detected RHINOVIRUS Not Detected RSV A Not Detected RSV B Not Detected Normal [facility] Comment on above: Performed By: #### M 200.1000, L509.7001, L101.9900, L501.6710 #### [facility] [address] [place], [address] Absolute lymphocyte countOrd ered By: Inderjit Gillespie on 09-01-2024 Lymphocytes Auto (Unsp spec) [#/Vol] 0.62 10*3/uL Low 0.83-4.51 [facility] Absolute neutrophil countOrd ered By: Inderjit Gillespie on 09-01-2024 Neutrophils (Bld) [#/Vol] 11.3 10*3/uL High 2.0-7.7 [facility] Anion gap in Serum or Plasma Ordered By: Inderjit Gillespie on 09-01-2024 Anion gap [Moles/Vol] 10 mmol/L 5-15 [facility] Automated lymphocyte count a s percentage of total leukocytesOrdered By: Inderjit Gillespie on 09-01-2024 Lymphocytes/100 WBC Auto (Unsp spec) 4.8 % Low 19-41 [facility] BUN/creatinine ratioOrdered By: Inderjit Gillespie on 09-01-2024 Urea nitrogen/Creatinine [Mass ratio] 21.6 mg/mg High 10-20 [facility] Basic Metabolic Profile (BMP )on 09-01-2024 BUN/CRE 21.6 RATIO High 10- [facility] Comment on above: Performed By: #### M 200.1000, L509.7001, L101.9900, L501.6710 #### [facility] [address] [place], [address] Calcium [Mass/Vol] 8.8 mg/dL Normal 7.6-11.0 [facility] Comment on above: Performed By: #### M 200.1000, L509.7001, L101.9900, L501.6710 #### [facility] [address] [place], [address] Chloride [Moles/Vol] 105 mmol/L Normal 98-108 [facility] Comment on above: Performed By: #### M 200.1000, L509.7001, L101.9900, L501.6710 #### [facility] [address] [place], [address] CO2 [Moles/Vol] 24.3 mmol/L Normal 21.0-32.0 [facility] Comment on above: Performed By: #### M 200.1000, L509.7001, L101.9900, L501.6710 #### [facility] [address] [place], [address] Creatinine [Mass/Vol] 0.77 mg/dL Normal 0.70-1.20 [facility] Comment on above: Performed By: #### M 200.1000, L509.7001, L101.9900, L501.6710 #### [facility] [address] [place], [address] ECRCL 68.71 ml/min Normal 50-250 [facility] Comment on above: Performed By: #### M 200.1000, L509.7001, L101.9900, L501.6710 #### [facility] [address] [place], [address] GAP 10 Normal 5-15 [facility] Comment on above: Performed By: #### M 200.1000, L509.7001, L101.9900, L501.6710 #### [facility] [address] [place], [address] GFR/1.73 sq M.predicted among non-blacks MDRD (S/P/Bld) [Vol rate/Area] 86 mL/min/{1.73_m2} Normal >60 [facility] Comment on above: Result Comment: mL/m in/1.73m2 CKD-EPI Creatinine Equation (2020) Performed By: #### M 200.1000, L509.7001, L101.9900, L501.6710 #### [facility] [address] [place], [address] Glucose [Mass/Vol] 112 mg/dL High 70-99 [facility] Comment on above: Performed By: #### M 200.1000, L509.7001, L101.9900, L501.6710 #### [facility] [address] [place], [address] Potassium [Moles/Vol] 3.7 mmol/L Normal 3.3-5.1 [facility] Comment on above: Performed By: #### M 200.1000, L509.7001, L101.9900, L501.6710 #### [facility] [address] [place], [address] Sodium [Moles/Vol] 139 mmol/L Normal 133-145 [facility] Comment on above: Performed By: #### M 200.1000, L509.7001, L101.9900, L501.6710 #### [facility] [address] [place], [address] Urea nitrogen [Mass/Vol] 17 mg/dL Normal 4-19 [facility] Comment on above: Performed By: #### M 200.1000, L509.7001, L101.9900, L501.6710 #### [facility] [address] [place], [address] Basophil percentageOrdered B y: Inderjit Gillespie on 09-01-2024 Basophils/100 WBC (Bld) 0.4 % 0-1 [facility] Bilirubin Test strip Ql (U)O rdered By: Inderjit Gillespie on 09-01-2024 Bilirubin Ql (U) Negative Negative [facility] Blood cultureOrdered By: Magnolia Black on 09-01-2024 Bacteria identified Cx Nom (Bld) No growth in 5 days. [facility] Brain/Head without Contrasto n 09-01-2024 Brain/Head without Contrast [facility] Imaging Services [address] [place] [address] Brain/Head without Contrast MR#: [id number] Acct: [id number] Name: ROBY FLORES Rep #: [id number] : 1935 M 89 From: Jose harris MD PCP: Dr. Stas Mora MD Status: REG ER Study: Brain/Head without Contrast Date of Exam: 08/21 05/17 Exam# [id number] Ordering Dr: Inderjit Gillespie MD PROCEDURE: BRAIN/HEAD [...] of the left maxillary sinus. Reading Location: [place] [address] CC: Dr. Inderjit Gillespie MD; Dr. Stas Mora MD It Project Lead: Signed Normal [facility] CBC W/Diff, Automatedon 08-21 Absolute Lymph 0.62 X10 3/uL Low 0.83-4.51 [facility] Comment on above: Performed By: #### M 200.1000, L509.7001, L101.9900, L501.6710 #### [facility] [address] [place], [address] Absolute Neut 11.3 X10 3/uL High 2.0-7.7 [facility] Comment on above: Performed By: #### M 200.1000, L509.7001, L101.9900, L501.6710 #### [facility] [address] [place], [address] Basophils/100 WBC (Bld) 0.4 % Normal 0-1 [facility] Comment on above: Performed By: #### M 200.1000, L509.7001, L101.9900, L501.6710 #### [facility] [address] [place], [address] Eosinophils/100 WBC (Bld) 1.2 % Normal 0-5 [facility] Comment on above: Performed By: #### M 200.1000, L509.7001, L101.9900, L501.6710 #### [facility] [address] [place], [address] Erythrocyte distribution width (RBC) [Ratio] 17.2 % High 11.6-14.6 [facility] Comment on above: Performed By: #### M 200.1000, L509.7001, L101.9900, L501.6710 #### [facility] [address] [place], [address] Hematocrit (Bld) [Volume fraction] 36.8 % Low 40-54 [facility] Comment on above: Performed By: #### M 200.1000, L509.7001, L101.9900, L501.6710 #### [facility] [address] [place], [address] Hemoglobin (Bld) [Mass/Vol] 11.6 g/dL Low 13.0-16.5 [facility] Comment on above: Performed By: #### M 200.1000, L509.7001, L101.9900, L501.6710 #### [facility] [address] [place], [address] IG% 0.400 Normal 0.0-0.9 [facility] Comment on above: Result Comment: IG% - Immature Granulocytes (promyelocytes, myelocytes and metamyelocytes) > 1% indicates that a LEFT SHIFT is Present. Performed By: #### M 200.1000, L509.7001, L101.9900, L501.6710 #### [facility] [address] [place], [address] Lymphocytes/100 WBC (Bld) 4.8 % Low 19-41 [facility] Comment on above: Performed By: #### M 200.1000, L509.7001, L101.9900, L501.6710 #### [facility] [address] [place], [address] MCH (RBC) [Entitic mass] 24.6 pg Low 27.0-32.0 [facility] Comment on above: Performed By: #### M 200.1000, L509.7001, L101.9900, L501.6710 #### [facility] [address] [place], [address] MCHC (RBC) [Mass/Vol] 31.5 g/dL Low 32-36 [facility] Comment on above: Performed By: #### M 200.1000, L509.7001, L101.9900, L501.6710 #### [facility] [address] [place], [address] MCV (RBC) [Entitic vol] 78.0 fL Low 80-94 [facility] Comment on above: Performed By: #### M 200.1000, L509.7001, L101.9900, L501.6710 #### [facility] [address] [place], [address] Monocytes/100 WBC (Bld) 5.7 % Normal 0-10 [facility] Comment on above: Performed By: #### M 200.1000, L509.7001, L101.9900, L501.6710 #### [facility] [address] [place], [address] Neutrophils/100 WBC (Bld) 87.5 % High 47-70 [facility] Comment on above: Performed By: #### M 200.1000, L509.7001, L101.9900, L501.6710 #### [facility] [address] [place], [address] Nucleated RBC (Bld) [#/Vol] 0 10*3/uL Normal 0-5 [facility] Comment on above: Performed By: #### M 200.1000, L509.7001, L101.9900, L501.6710 #### [facility] [address] [place], [address] Platelet mean volume (Bld) [Entitic vol] 9.4 fL Normal 6.2-12.0 [facility] Comment on above: Performed By: #### M 200.1000, L509.7001, L101.9900, L501.6710 #### [facility] [address] [place], [address] Platelets (Bld) [#/Vol] 258 10*3/uL Normal 150-450 [facility] Comment on above: Performed By: #### M 200.1000, L509.7001, L101.9900, L501.6710 #### [facility] [address] [place], [address] RBC (Bld) [#/Vol] 4.72 10*6/uL Normal 4.6-6.2 [facility] Comment on above: Performed By: #### M 200.1000, L509.7001, L101.9900, L501.6710 #### [facility] [address] [place], [address] RDW SD 48.2 fl High 35.1-43.9 [facility] Comment on above: Performed By: #### M 200.1000, L509.7001, L101.9900, L501.6710 #### [facility] [address] [place], [address] WBC (Bld) [#/Vol] 12.9 10*3/uL High 4.4-11.0 [facility] Comment on above: Performed By: #### M 200.1000, L509.7001, L101.9900, L501.6710 #### [facility] [address] [place], [address] CNPNon 09-01-2024 [facility] Telephone (PHMEWO) ROBY FLORES ([id number]) 1935 M Date Time Provider Department 09/01/24 RUSSELL AGUAYO PHMEWO During your visit today, we recorded the following information about you: Russell Aguayo [facility] 09/01/2024 10:01 AM Signed PCP reached [...] affordable alvarado using Good Rx coupons. At [facility] (his current pharmacy), he can get a 1 mo supply for ~$30. If he switches the prescription to [facility], he can get a 1 mo supply for ~$20. See coupons below. Rivastigmine patches are also available via GoodRx. It appears the cheapest option is through [facility], in which he can get 30 patches for $52. Coupon also below. Sending to PCP to review and provide patient with coupon card information. Russell Aguayo, Saúl, [facility] Primary Care Clinical Pharmacist Memantine coupon at [facility] Memantine coupon at [facility] Rivastigmine patches coupon at [facility] Luciana Cisneros MD 09/01/2024 1:27 PM Signed Rahul Chau, Staff please let patient know what the pharmacist as opined on. Regards, Haydee Mares MD, RUDY 09/01/2024 2:49 PM Signed [employer] message sent Allergies As of Date: 09/01/2024 [...] Status:Closed by RUSSELL AGUAYO on 09/01/24 Normal [facility] COVID 19 AG RAPID (EMILY Gomez)on [...] RAPID METHOD BinaxNow COVID19 Ag Card Normal [facility] Comment on above: Performed By: #### M 200.1000, L509.7001, L101.9900, L501.6710 #### [facility] [address] [place], [address] COVID-19 virus antigen assay Ordered By: Marta Black on 09-01-2024 SARS-CoV-2 (COVID-19) Ag IA.rapid Ql (Resp) [facility] CRPon 09-01-2024 C-REACTIVE PROT 26.80 mg/L High 0.0-3.0 [facility] Comment on above: Performed By: #### M 200.1000, L509.7001, L101.9900, L501.6710 #### [facility] [address] [place], [address] Carbon dioxide, total [Moles /volume] in Central venous bloodOrdered By: Inderjit Gillespie on 09-01-2024 CO2 [Moles/Vol] 24.3 mmol/L 21.0-32.0 [facility] Chest 1 View (Portable)on Chest 1 View (Portable) [facility] Imaging Services [address] [place], [place] [address] Chest 1 View (Portable) MR#: [id number] Acct: [id number] Name: ROBY FLORES Rep #: [id number] : 1935 M 89 From: Jose harris MD PCP: Dr. Stas Mora MD Status: REG ER Study: Chest 1 View (Portable) Date of Exam: 09/01/24 Exam# [id number] Ordering Dr: Inderjit Gillespie MD PROCEDURE: CHEST [...] No acute abnormality is seen. Reading Location: [facility] CC: Dr. Inderjit Gillespie MD; Dr. Stas Mora MD It Project Lead: Signed Normal [facility] Chloride assayOrdered By: Aries Gillespie on 09-01-2024 Chloride [Moles/Vol] 105 mmol/L 98-108 [facility] Emergency Department Summary on 09-01-2024 Emergency Department Summary [facility] Medical Records Department [address] [place] [address] Emergency Department Summary 09/01/24 MR#: [id number] Acct: [id number] Name: ROBY FLORES Rep #: [id number] : 1935 89 From: Inderjit Gillespie MD [...] shoulders elbows and wrist. 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 Neurologically he is awake alert. Answering [...] Air 09/01/24 (more content not included)... Normal [facility] Eosinophil percentageOrdered By: Inderjit Gillespie on 09-01-2024 Eosinophils/100 WBC (Bld) 1.2 % 0-5 [facility] Erythrocyte Sed Rateon 09-01 SED RATE 2 mm/hr Normal 0-20 [facility] Comment on above: Performed By: #### M 200.1000, L509.7001, L101.9900, L501.6710 #### [facility] [place], [address] Erythrocyte distribution wid th ratioOrdered By: Inderjit Gillespie on 09-01-2024 Erythrocyte distribution width (RBC) [Ratio] 17.2 % High 11.6-14.6 [facility] Erythrocyte distribution wid th standard deviationOrdered By: Inderjit Gillespie on 09-01-2024 Erythrocyte distribution width (RBC) [Ratio] 48.2 fl High 35.1-43.9 [facility] Erythrocyte sedimentation ra teOrdered By: Marta Black on 09-01-2024 ESR (Bld) [Velocity] 2 mm/h 0-20 [facility] Glomerular filtration rate ( GFR) estimation/1.73 sq m using serum, plasma, or whole bOrdered By: Inderjit Gillespie on 09-01-2024 GFR/1.73 sq M.predicted among non-blacks MDRD (S/P/Bld) [Vol rate/Area] 86 mL/min/{1.73_m2} >60 [facility] Comment on above: mL/min/1.73m2 CKD-EP I Creatinine Equation (2020) H AND P Exam - [facility] 09-01-2024 H&P Exam - Hospitalist [facility] Medical Records Department [address] [place] [address] H P Exam - Hospitalist 09/01/24 1018 MR#: [id number] Acct: [id number] Name: ROBY FLORES Rep #: [id number] : 1935 89 From: Kathy Wells MD PCP: Dr. Stas Mora MD Status:ADM GERMAN Location: [address] HPI - General General Date of [...] in the ED were BP of 180/89, WA of 87, RR of 18 and temp [...] debility and weakness due to mechanical fall. [facility] Medical History Chronic anticoagulation TIA (transient [...] 99 Oxy (more content not included)... Normal [facility] Hematocrit Auto (Bld) [Volum e fraction]Ordered By: Inderjit Gillespie on 09-01-2024 Hematocrit (Bld) [Volume fraction] 36.8 % Low 40-54 [facility] Hemoglobin measurementOrdere d By: Inderjit Gillespie on 09-01-2024 Hemoglobin (Bld) [Mass/Vol] 11.6 g/dL Low 13.0-16.5 [facility] Hips B/L min 2 views w/ Pelv adolfo 09-01-2024 Hips B/L min 2 views w/ Pelvis [facility] Imaging Services [address] [place] [address] Hips B/L min 2 views w/ Pelvis MR#: [id number] Acct: [id number] Name: SANDRAROBY Radha Rep #: [id number] : 1935 M 89 From: Jose harris MD PCP: Dr. Stas Mora MD Status: REG ER Study: Hips B/L min 2 views w/ Pelvis Date of Exam: 0 09/01/24 Exam# [id number] Ordering Dr: Inderjit Gillespie MD PROCEDURE: HIPS [...] No fracture or dislocation present. Reading Location: [place] [address] CC: Dr. Inderjit Gillespie MD; Dr. Stas Mora MD It Project Lead: Signed Normal [facility] Immature granulocytes/100 WB C Auto (Bld)Ordered By: Inderjit Gillespie on 09-01-2024 Immature granulocytes/100 WBC (Bld) 0.400 % 0.0-0.9 [facility] Comment on above: IG% - Immature Granu locytes (promyelocytes, myelocytes and metamyelocytes) > 1% indicates that a LEFT SHIFT is Present. International normalized rat io (INR) calculationOrdered By: Inderjit Gillespie on 09-01-2024 INR Coag (Bld) [Relative time] 1.8 {INR} [facility] Ketones Test strip Ql (U)Ord ered By: Inderjit Gillespie on 09-01-2024 Ketones Ql (U) Negative Negative [facility] L509.7001on 09-01-2024 Procalcitonin 0.07 ng/mL Normal <=0.10 [facility] Comment on above: Result Comment: Inte [...] #### M 200.1000, L509.7001, L101.9900, L501.6710 #### [facility] [address] [place], [address] MCV (mean corpuscular volume ) determinationOrdered By: Inderjit Gillespie on 09-01-2024 MCV (RBC) [Entitic vol] 78.0 fL Low 80-94 [facility] Mean corpuscular hemoglobin (MCH) determinationOrdered By: Inderjit Gillespie on 09-01-2024 MCH (RBC) [Entitic mass] 24.6 pg Low 27.0-32.0 [facility] Mean corpuscular hemoglobin concentration (MCHC) determinationOrdered By: Inderjit Gillespie on 09-01-2024 MCHC (RBC) [Mass/Vol] 31.5 g/dL Low 32-36 [facility] Mean platelet volume determi nationOrdered By: Inderjit Gillespie on 09-01-2024 Platelet mean volume (Bld) [Entitic vol] 9.4 fL 6.2-12.0 [facility] Microscopic analysis of urin e for red blood cells (RBC)Ordered By: Inderjit Gillespie on 09-01-2024 Microscopic analysis of urine for red blood cells (RBC) 0 SEEN /hpf 0- [facility] Monocyte percentageOrdered B y: Inderjit Gillespie on 09-01-2024 Monocytes/100 WBC (Bld) 5.7 % 0-10 [facility] Mucus LM Ql (Urine sed)Order ed By: Inderjit Gillespie on 09-01-2024 Mucus Ql (Urine sed) 0 SEEN /hpf [facility] Neutrophil percentageOrdered By: Inderjit Gillespie on 09-01-2024 Neutrophils/100 WBC (Bld) 87.5 % High 47-70 [facility] Nitrite Test strip Ql (U)Ord ered By: Inderjit Gillespie on 09-01-2024 Nitrite Ql (U) Negative Negative [facility] Nucleated red blood cell per centageOrdered By: Inderjit Gillespie on 09-01-2024 Nucleated RBC/100 WBC (Bld) [Ratio] 0 % 0-5 [facility] Platelet countOrdered By: Aries Gillespie on 09-01-2024 Platelets (Bld) [#/Vol] 258 10*3/uL 150-450 [facility] Potassium measurement (mass/ volume)Ordered By: Inderjit Gillespie on 09-01-2024 Potassium (Unsp spec) [Mass/Vol] 3.7 mmol/L 3.3-5.1 [facility] Procalcitonin [Mass/volume] in Serum or Plasma by ImmunoassayOrdered By: Marta Black on 09-01-2024 Procalcitonin IA [Mass/Vol] 0.07 ng/mL <0.11 [facility] Comment on above: Interpretation:<0.10 -0.25 ng/mL: [...] Protein Ql (U) 15 mg/dl High Negative [facility] Prothrombin Time w/INRon INR Coag (PPP) [Relative time] 1.8 {INR} Normal [facility] Comment on above: Performed By: #### M 200.1000, L509.7001, L101.9900, L501.6710 #### [facility] [address] [place], [address] PT Coag (PPP) [Time] 21.4 s High 11.7-14.9 [facility] Comment on above: Performed By: #### M 200.1000, L509.7001, L101.9900, L501.6710 #### [facility] [address] [place], [address] Prothrombin timeOrdered By: Inderjit Gillespie on 09-01-2024 PT Coag (PPP) [Time] 21.4 s High 11.7-14.9 [facility] RBC Auto (Bld) [#/Vol]Ordere d By: Inderjit Gillespie on 09-01-2024 RBC (Bld) [#/Vol] 4.72 10*6/uL 4.6-6.2 [facility] Respiratory pathogens detect ion panel by molecular detection methodOrdered By: Marta Black on 09-01-2024 Respiratory pathogens DNA and RNA panel LOLI+probe (Resp) [facility] Serum creatinine measurement (mass/volume)Ordered By: Inderjit Gillespie on 09-01-2024 Creatinine [Mass/Vol] 0.77 mg/dL 0.70-1.20 [facility] Serum glucose measurement (m ass/volume)Ordered By: Inderjit Gillespie on 09-01-2024 Glucose [Mass/Vol] 112 mg/dL High 70-99 [facility] Serum or plasma C reactive p rotein measurement (mass/volume)Ordered By: Marta Black on 09-01-2024 CRP [Mass/Vol] 26.80 mg/L High 0.0-3.0 [facility] Serum or plasma calcium alvaro urement (mass/volume)Ordered By: Inderjit Gillespie on 09-01-2024 Calcium [Mass/Vol] 8.8 mg/dL 7.6-11.0 [facility] Serum or plasma urea nitroge n measurement (mass/volume)Ordered By: Inderjit Gillespie on 09-01-2024 Urea nitrogen [Mass/Vol] 17 mg/dL 4-19 [facility] Sodium levelOrdered By: Inderjit Gillespie on 09-01-2024 Sodium [Moles/Vol] 139 mmol/L 133-145 [facility] Squamous epithelial cells de tection in urine sediment by light microscopyOrdered By: Inderjit Gillespie on 09-01-2024 Epithelial cells.squamous LM Ql (Urine sed) 0 SEEN /hpf 0-5 [facility] Urinalysis, Completeon 09-01 BACTERIA 0 SEEN Normal None Seen [facility] Comment on above: Order Comment: CLEAN CATCH Performed By: #### L 400.0001 #### [facility] [address] [place], [address] EPI,SQUAMOUS 0 SEEN Normal 0-5 [facility] Comment on above: Order Comment: CLEAN CATCH Performed By: #### L 400.0001 #### [facility] [address] [place], [place], [address] Mucus Ql (Urine sed) 0 SEEN Normal [facility] Comment on above: Order Comment: CLEAN CATCH Performed By: #### L 400.0001 #### [facility] [address] [place], [address] RBC 0 SEEN Normal 0-5 [facility] Comment on above: Order Comment: CLEAN CATCH Performed By: #### L 400.0001 #### [facility] [address] [place], [address] WBC 0 SEEN Normal 0-5 [facility] Comment on above: Order Comment: CLEAN CATCH Performed By: #### L 400.0001 #### [facility] [address] [place], [place], [address] Urine clarityOrdered By: Mario Gillespie on 09-01-2024 Clarity (U) Clear Clear [facility] Urine color determinationOrd ered By: Inderjit Gillespie on 09-01-2024 Color (U) Yellow Yellow [facility] Urine glucose detectionOrder ed By: Inderjit Gillespie on 09-01-2024 Glucose Ql (U) Normal mg/dl Normal [facility] Urine leukocyte esterase det ection by dipstickOrdered By: Inderjit Gillespie on 09-01-2024 Leukocyte esterase Test strip Ql (U) Negative Negative [facility] Urine pHOrdered By: Inderjit pack on 09-01-2024 pH (U) 8.0 [pH] 5.0 - 8.0 [facility] Urine sediment bacteria coun t by microscopy (number/high power field)Ordered By: Inderjit Gillespie on 09-01-2024 Bacteria LM.HPF (Urine sed) [#/Area] 0 /[HPF] None Seen [facility] Urine specific gravity measu rementOrdered By: Inderjit Gillespie on 09-01-2024 Specific gravity (U) [Rel density] 1.010 1.002-1.03 0 [facility] Urine urobilinogen measureme ntOrdered By: Inderjit Gillespie on 09-01-2024 Urobilinogen Ql (U) 4 mg/dl High Normal [facility] White blood cell (WBC) count Ordered By: Inderjit Gillespie on 09-01-2024 WBC (Bld) [#/Vol] 12.9 10*3/uL High 4.4-11.0 [facility] White blood cell countOrdere d By: Inderjit Gillespie on 09-01-2024 White blood cell count 0 SEEN /hpf 0-5 [facility] CNOVon 08-31-2024 CNOV Office Visit (RAMBOR ) SANDRAROBY E ([id number]) 1935 M Date Time Provider Department 08/31/24 [...] also thought he had a car in [facility] and wanted to retrieve it, despite 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 [...] [facility] 08-31-2024 CNPN Telephone (PHAMTE) FLORESROBY ([id number]) 1935 M Date Time Provider Department 08/31/24 CORETTA JALLOH During your visit today, we recorded the following information about you: Coretta Jalloh riya 08/31/2024 2:13 PM Signed [facility] Anticoagulation Clinic Anticoagulation Episode Summary Anticoagulation Care Providers Provider Role Specialty Phone number Stas Mora MD Referring Family Medicine [phone] Roby Garcia Sandra is a 89 year [...] Pharmacy Anticoagulation Clinic Pharmacy [facility] Pager: [phone]. Coretta Jalloh RPh 09/28/2024 11:30 AM Signed Per TE on 09/21, pt is in [facility] living for rehab. He has been for for nearly 3 weeks now. Will check back next week before we call Maria Guadalupe. Will watch for notes of discharge. Coretta Jalloh [facility] Hakan Jallohantha [facility] 10/05/2024 2:05 PM Signed Spoke to Maria Guadalupe. She said he is at an [facility] Facility and they are managing his AC but she isn't aware of results. She isn't sure of discharge timing. She said maybe check back in a few weeks. Will check back in October for any updates. Coretta Jalloh [facility] Adrian (Shucker)Elana 10/27/2024 4:17 PM Signed Updating PCC LTC / Rehab list. Called and stp patient's significant other, Maria Guadalupe. She stated patient is still in SNF at this time. She was agreeable to f/u in a few weeks. Tracker updated for f/u in 2-3 weeks. Elana Campbell CPhT (Wireline Field Operator) [facility]acy [facility]ticoagulation Clinic Satish (Shucker)Parmjit 11/25/2024 3:45 PM Signed Left message requesting an update. Patient has appt with PCP 12/05. Will update tracker to that day to see if there are any updates. Adrian (Shucker)Elana 12/08/2024 4:41 PM Signed Updating PCC LTC / Rehab list. Attempted to call patient's caregiver, Maria Guadalupe, to get update on LTC/SNF status. Message left requesting a return call to [phone], option 2. Elana Campbell CPhT (Wireline Field Operator) [facility] Adrian (Shucker), Elana 12/22/2024 3:52 PM Signed Updating PCC LTC / Rehab list. Attempted to call patient's caregiver, Maria Guadalupe, to get update on LTC/SNF status. Message left requesting a return call to [phone], option 2. Elana Campbell CPhT (Wireline Field Operator) [facility]acy [facility]tico[facility] Adrian (Shucker), Elana 12/29/2024 5:26 PM Signed Updating PCC LTC / Rehab list. Attempted to call patient's caregiver, Maria Guadalupe, to get update on LTC/SNF status. Message left requesting a return call to [phone], option 2. Elana Campbell CPhT (Wireline Field Operator) Pharmacy Anticoagulation Clinic Adrian (Shucker), (more content not included)... Normal [facility] PT panel Coag (PPP)on 2024 INR Coag (PPP) [Relative time] 1.9 {INR} High 0.9-1.3 [facility] Comment on above: Order Comment: Stone parmar Type: BLOOD SPECIMENOrdering Facility: [facility] Address: [address] [place] [address] Result Comment: Mary min K Antagonist (VKA) Therapeutic Range: INR 2 to 3 (Target INR of 2.5) Note: For patients treated with VKA drugs, such as warfarin, the [place] [employer] 2012 Guideline recommends [...] Chest 2012, 141:7S-47S Avel RA, et al. [facility] 2017, 70: 252-289 Performed By: #### 3 4528-0 ####[facility] HOSPITALNCRachel [id number] [place] [address] [place] PT Coag (PPP) [Time] 19.2 s High <13.1 [facility] Comment on above: Order Comment: Stone parmar Type: BLOOD SPECIMENOrdering Facility: [facility] Address: [address] [place] [address] Performed By: #### 3 4528-0 ####[facility]OSPITALJERMAIN [id number] [place] [id number] [place] Gene 08-03-2024 CNPN Telephone (PHAMTE) ROBY FLORES ([id number]) 1935 M Date Time Provider Department 08/03/24 CORETTA JALLOH During your visit today, we recorded the following information about you: Coretta Jalloh [facility] 08/03/2024 10:52 AM Signed [facility] Ambulatory Pharmacy Anticoagulation Clinic Anticoagulation Episode Summary Anticoagulation Care Providers Provider Role Specialty Phone number Stas Mora MD Referring Family Medicine [phone] Roby Flores is a 88 year old [...] ALLERGIES No Known Allergies Indication for Warfarin: 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 Coretta Jalloh [facility] Clinical Pharmacist, Pharmacy Anticoagulation Clinic Pharmacy Anticoagulation Clinic Pager: [phone]. Adrian (Cursa.me)Elana 08/03/2024 11:01 AM Signed PATIENT CALL Patient [...] 08/31/2024 Caregiver verbalized understanding. Will route to [facility] as FYI. 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 Address: [address] [place] [address] Result Comment: Mary min K Antagonist (VKA) Therapeutic Range: INR 2 to 3 (Target INR of 2.5) Note: For patients treated with VKA drugs, such as warfarin, the [place] [employer] 2012 Guideline recommends [...] Chest 2012, 141:7S-47S Avel RA, et al. [facility] 2017, 70: 252-289 Performed By: #### 3 4528-0 #### [facility]ENTERIA [id number] [address] [place] [address] [place] PT Coag (PPP) [Time] 24.3 s High <13.1 [facility] Comment on above: Order Comment: Speci men Type: BLOOD SPECIMEN [facility] Address: [address] [place] [address] Performed By: #### 3 4528-0 #### [facility]ENTERIA [id number] [address] [place] [address] OF [facility] CNOVon 07-28-2024 CNOV Office Visit (QUIQUEPWS ) ROBY FLORES ([id number]) 1935 M Date Time Provider Department 07/28/24 [...] Coronary atherosclerosis of unspecified type of vessel, quinault or graft Coronary artery disease Other and [...] Past Histories independently gathered by the clinical youth support worker and the remaining scribed note [...] Known Allergies) Date Reviewed: 07/28/2024 Reviewed by: oRsie Cruz MA - Fully Assessed Reason for Visit: Lump [50138] Cmt: Elbow Primary Visit Diagnosis:Bursitis of right elbow, unspecified bursa [M70.31] Prescriptions as of 07/28/2024 - memantine (NAMENDA) 10 mg tablet Take 1 tablet by mouth two times a day. - atorvastatin (LIPITOR) 40 mg tablet Take 1 tablet by mouth daily at bedtime. - warfarin (COUMADIN) 2.5 mg tablet Take as directed (more content not included)... 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 [Z79.01]09/22/2016 Paroxysmal atrial fibrillation (HCC) [I48.0] 09/22/2016 Hyperlipidemia [E78.5] 08/26/2022 Encounter Status:Closed by WENDY FAULKNER on 07/18/24 [facility] Gene 07-06-2024 CNPN Telephone (PHAMTE) SANDRAROBY Garcia ([id number]) 1935 M Date Time Provider Department 07/06/24 CORETTA JALLOH During your visit today, we recorded the following information about you: Coretta Jalloh RPh 07/06/2024 10:16 AM Signed [facility]ulatory Pharmacy Anticoagulation Clinic Anticoagulation Episode Summary Anticoagulation Care Providers Provider Role Specialty Phone number Stas Mora MD Referring Family Medicine [phone] Roby Radha Flores is a 88 year [...] ALLERGIES No Known Allergies Indication for Warfarin: 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 Coretta Jalloh [facility] Clinical Pharmacist, Pharmacy Anticoagulation Clinic Pharmacy Anticoagulation Clinic Pager: [phone]. 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 Address: [address] [place] [address] Result Comment: Mary min K Antagonist (VKA) Therapeutic Range: INR 2 to 3 (Target INR of 2.5) Note: For patients treated with VKA drugs, such as warfarin, the [place] [employer] 2012 Guideline recommends [...] Chest 2012, 141:7S-47S Avel RA, et al. [facility] 2017, 70: 252-289 Performed By: #### 3 4528-0 ####[facility] CLINENCLIZZ [id number] [place] [address] [place] PT Coag (PPP) [Time] 21.0 s High <13.1 [facility] Comment on above: Order Comment: Speci men Type: BLOOD SPECIMENOrdering Facility: [facility] Address: [address] [facility] [place] [address] Performed By: #### 3 4528-0 ####[facility] CLINENCLIA [id number] [address] [place] CNPNon 06-29-2024 CNPN Telephone (PHAMTE) ROBY FLORES ([id number]) 1935 M Date Time Provider Department 06/29/24 CORETTA JALLOH During your visit today, we recorded the following information about you: Coretta Jalloh RPh 06/29/2024 9:54 AM Signed [facility] Ambulatory Pharmacy Anticoagulation Clinic Anticoagulation Episode Summary Anticoagulation Care Providers Provider Role Specialty Phone number Stas Mora MD Referring Family Medicine [phone] Roby Martinezenter is a 88 year old [...] Sat; 2.5 mg all other days Sent Calendargod message Advised patient to continue current weekly dose as noted above Next home INR check scheduled on 07/06/2024 Patient advised to call the PAC with any medication changes, bleeding/bruising concerns, recent changes in vitamin k consumption, if any procedures are coming up, if they have been ill or in the hospital, and if they have missed any doses of warfarin. Coretta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 INR Coag (Bld) [Relative time] 1.7 {INR} [facility] Basophil percentageon 2021 Cholesterol [Mass/Vol] 152 mg/dL <200 [facility] Work Phone: Comment on above: <200 mg/dL Desirable 200-240 mg/dL Borderline >240 mg/dL High Risk Triglyceride [Mass/Vol] 76 mg/dL <199 [facility] Work Phone: Comment on above: The drugs N-Acetylcy steine and Metamizole may falsely depress this assay.Serum Triglycerides Reference Interval Normal <150 mg/dL Borderline high 150 - 199 mg/dL High 200 - 499 mg/dL Very High > or = 500 mg/dL INR in Blood by Coagulation assayon 12-22-2021 INR Coag (Bld) [Relative time] 2.5 {INR} [facility] Work Phone: Laboratory - Chemistry and C hemistry - challengeon 12-22-2021 Magnesium [Mass/Vol] 2.1 mg/dL 1.6-2.6 [facility] Work Phone: Laboratory - Coagulationon 1 PT Coag (PPP) [Time] 27.0 s 11.7-14.9 [facility] Work Phone: No Panel Informationon 12-22 Thyroid Stimulating Hormone (TSH) 0.42 uIU/mL 0.358-3.74 [facility] Work Phone: Serum or plasma cholesterol in HDL measurement (mass/volume)on 12-22-2021 Cholesterol in HDL [Mass/Vol] 35 mg/dL >40 [facility] Work Phone: Comment on above: The drugs N-Acetylcy steine and Metamizole may falsely depress this assay. Reference Range HDL <40 mg/dL Low HDL Cholesterol HDL >or= 60 mg/dL High HDL Cholesterol Serum or plasma cholesterol in VLDL measurement (mass/volume)on 12-22-2021 Cholesterol in VLDL [Mass/Vol] 15 mg/dL 5-40 [facility] Work Phone: Serum or plasma low density lipoprotein (LDL) cholesterol measurement (mass/volume)on 12-22-2021 Cholesterol in LDL [Mass/Vol] 102 mg/dL 0-130 [facility] Work Phone: Whole blood hemoglobin A1c/t otal hemoglobin ratio (mass fraction)on 12-22-2021 HbA1c (Bld) [Mass fraction] 5.9 % 3.8-5.6 [facility] Work Phone: Comment on above: Normal < 5.7 % Predi abetic 5.7 - 6.4 % Diabetic >or= 6.5 % Please note range changes. Absolute lymphocyte counton 12-21-2021 Lymphocytes Auto (Unsp spec) [#/Vol] 1.23 10*3/uL 0.83-4.51 [facility] Work Phone: Basophil percentageon 2021 Basophils/100 WBC (Bld) 0.4 % 0-1 [facility] Work Phone: Chloride [Moles/Vol] 106 mmol/L 98-107 [facility] Work Phone: Eosinophils/100 WBC (Bld) 1.4 % 0-5 [facility] Work Phone: Glucose [Mass/Vol] 107 mg/dL 74-106 [facility] Work Phone: Comment on above: Fasting Glucose resu lt from 100 to 125 mg/dL suggests IMPAIRED HOMEOSTASIS per A.D.A. criteria. Neutrophils (Bld) [#/Vol] 5.7 10*3/uL 2.0-7.7 [facility] Work Phone: [phone] Neutrophils/100 WBC (Bld) 72.4 % 47-70 [facility] Work Phone: [phone] Potassium [Moles/Vol] 3.7 mmol/L 3.5-5.1 [facility]: Sodium [Moles/Vol] 141 mmol/L 136-145 [facility] Work Phone: WBC (Bld) [#/Vol] 7.9 10*3/uL 4.4-11.0 [facility] Work Phone: [phone] Blood erythrocytes count (nu mber/volume)on 12-21-2021 RBC (Bld) [#/Vol] 4.85 10*6/uL 4.6-6.2 [facility]: Blood hemoglobin measurement (mass/volume)on 12-21-2021 Hemoglobin (Bld) [Mass/Vol] 14.5 g/dL 13.0-16.5 [facility] Work Phone: [phone] Blood lymphocytes/100 leukoc yteson 12-21-2021 Lymphocytes/100 WBC (Bld) 15.5 % 19-41 [facility] Work Phone: Blood monocytes/100 leukocyt eson 12-21-2021 Monocytes/100 WBC (Bld) 9.9 % 0-10 [facility] Work Phone: Blood platelet mean volumeon 12-21-2021 Platelet mean volume (Bld) [Entitic vol] 10.2 fL 6.2-12.0 [facility] Work Phone: Determination of erythrocyte mean corpuscular volume (MCV)on 12-21-2021 MCV (RBC) [Entitic vol] 92.0 fL 80-94 [facility] Work Phone: Hematocrit Auto (Bld) [Volum e fraction]on 12-21-2021 Hematocrit (Bld) [Volume fraction] 44.6 % 40-54 [facility] Work Phone: INR in Blood by Coagulation assayon 12-21-2021 INR Coag (Bld) [Relative time] 2.3 {INR} [facility] Work Phone: Laboratory - Chemistry and C hemistry - challengeon 12-21-2021 CO2 [Moles/Vol] 29.0 mmol/L 21.0-32.0 [facility] Work Phone: Urea nitrogen/Creatinine [Mass ratio] 21.8 mg/mg 10-20 [facility] Work Phone: Laboratory - Coagulationon aPTT Coag (Bld) [Time] 36.6 s 24.1-36.2 [facility] Work Phone: PT Coag (PPP) [Time] 24.7 s 11.7-14.9 [facility] Work Phone: Laboratory - Hematology and Cell countson 12-21-2021 Erythrocyte distribution width (RBC) [Entitic vol] 42.2 fL 35.1-43.9 [facility] Work Phone: Erythrocyte distribution width (RBC) [Ratio] 12.5 % 11.6-14.6 [facility] Work Phone: Immature granulocytes/100 WBC (Bld) 0.400 % 0.0-0.9 [facility] Work Phone: Comment on above: IG% - Immature Granu locytes (promyelocytes, myelocytes and metamyelocytes) > 1% indicates that a LEFT SHIFT is Present. MCH (RBC) [Entitic mass] 29.9 pg 27.0-32.0 [facility] Work Phone: Nucleated RBC/100 WBC (Bld) [Ratio] 0 % 0-5 [facility] Work Phone: MCHC Auto (RBC) [Mass/Vol]on 12-21-2021 MCHC (RBC) [Mass/Vol] 32.5 g/dL 32-36 [facility] Work Phone: No Panel Informationon 12-21 Estimated Creatinine Clearance Calc 66.90 ml/min [facility] Work Phone: Estimated GFR (MDRD) Amer 107 mL/min >60 [facility] Work Phone: Comment on above: GFR Calc Estimated GFR (MDRD) Non-Af Amer 88 mL/min >60 [facility] Work Phone: Comment on above: Non- GFR Calc Troponin I High Sensitivity 13 pg/mL 3.0-78.0 [facility] Work Phone: Comment on above: Please Note: New Hiwot t Units and Gender Specific Reference Ranges. For more information see Policy Stat Procedure [place] High Sensitivity Troponin (TNIH) and attachments. Platelets bldon 12-21-2021 Platelets (Bld) [#/Vol] 241 10*3/uL 150-450 [facility] Work Phone: Serum or plasma calcium alvaro urement (mass/volume)on 12-21-2021 Calcium [Mass/Vol] 9.2 mg/dL 8.5-10.1 [facility] Work Phone: Serum or plasma creatinine m easurement (mass/volume)on 12-21-2021 Creatinine [Mass/Vol] 0.87 mg/dL 0.70-1.30 [facility] Work Phone: Comment on above: The validity of the calculated GFR & GFRAA in patients over 70 years has not been determined. Clinical correlation is essential. Serum or plasma urea nitroge n measurement (mass/volume)on 12-21-2021 Urea nitrogen [Mass/Vol] 19 mg/dL 10-07 [facility] Work Phone: Thin prep Papanicolaou smear with manual screeningon 12-21-2021 Thin prep Papanicolaou smear with manual screening 6 08-04 [facility] Work Phone: CBC panel Auto (Bld)on 07-08 Erythrocyte distribution width (RBC) [Ratio] 13.1 % 11.5 - 15.0 % [facility] Hematocrit (Bld) [Volume fraction] 49.5 % 39.0 - 51.0 % [facility] Hemoglobin (Bld) [Mass/Vol] 15.9 g/dL 13.0 - 17.0 g/dL [facility] MCH (RBC) [Entitic mass] 29.6 pg 26.0 - 34.0 pg [facility] MCHC (RBC) [Mass/Vol] 32.1 g/dL 30.5 - 36.0 g/dL [facility] MCV (RBC) [Entitic vol] 92.2 fL 80.0 - 100.0 fL [facility] Nucleated RBC (Bld) [#/Vol] 10*3/uL <0.01 k/uL [facility] Platelet mean volume (Bld) [Entitic vol] 10.7 fL 9.0 - 12.7 fL [facility] Platelets (Bld) [#/Vol] 235 10*3/uL 150 - 400 k/uL [facility] RBC (Bld) [#/Vol] 5.37 10*6/uL 4.20 - 6.00 m/uL [facility] WBC (Bld) [#/Vol] 10.33 10*3/uL 3.70 - 11.00 k/uL [facility] XR Lumbar spine 3 Viewson IMPRESSION: 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 It Project Lead: EDUAR Transcribe Date/Time: Mar 13 2020 8:34A Dictated by : GABRIELLE BENTLEY MD This examination was interpreted and the report reviewed and electronically signed by: GABRIELLE BENTLEY MD on Mar 13 2020 8:35AM [facility] DIVISION OF RADIOLOGY * * *Final [...] spine are presented. FINDINGS: There are five vrv-eao-qfjvzam lumbar vertebrae. No fracture or subluxations are noted. L5-S1 disc space narrowing is demonstrated. There is significant osteophyte formation. Kissing spine seen on lateral view. DIVISION OF RADIOLOGY Provider, Richie [facility] - 03/13/2020 * * *Final Report* [...] spine are presented. FINDINGS: There are five iqp-xml-navcvbd lumbar vertebrae. No fracture or subluxations are noted. L5-S1 disc space narrowing is demonstrated. There is significant osteophyte formation. Kissing spine seen on lateral view. 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 It Project Lead: PSCB Transcribe Date/Time: Mar 13 2020 8:34A Dictated by : GABRIELLE BENTLEY MD This examination was interpreted and the report reviewed and electronically signed by: GABRIELLE BENTLEY MD on Mar 13 2020 8:35AM EST [facility] XR Lumbar spine 3 ViewsOrder ed By: Ccf Provider on 03-13-2020 [facility] XR Lumbar spine 3 Viewson Radiology Study observation (narrative) [facility] PROGRESSon 06-09-2017 PROGRESS HNO ID: [id number] Author: Vesta Marin PSR Service: (none) Author Type: (none) Type: Progress Notes Filed: 06/09/2017 4:13 PM Note Text: Spoke with the patient and scheduled his Corotid Doppler on June 24, 2017 at 9:00 am [facility] CNOVon 06-02-2017 CNOV Office Visit (AGCARDWST) -------[facility] FLOR[facility] ([id number]) 1935 [facility]/02/17 9:00 AM [...] - METBeta jazmin for ASHD with prior TN or prior LVEFANDlt;40 (NQF 0070) - N/ABeta [...] with treatment plan.This note was generated using [employer] voice recognition system, and there may besome [...] There is no significantchange.Electronic ally Signed:Darrell Oliveira, [facility] 2017 9:15 [facility]: Carmen Vasquez MD 06/02/2017 9:21 AM [...] 24, 2017 at9:00 amReferring Provider: DARRELL OLIVEIRA [[id number]]Allergies As of Date: 06/02/2017(No Known Allergies)Date Reviewed: 06/02/2017Reviewed by: Russell HuangExpressive Music Therapist) Anabella - Fully AssessedReason for Visit: Recheck [92]Primary Visit Diagnosis:ASHD (arteriosclerotic heart disease) [I25.10] Other Visit Diagnosis:PAF (paroxysmal atrial fibrillation) ([facility]) [I48.0]Order(s):ECG B/O W INTERP (MED OFFICE) [ECG06] Order #: [id number] Fosinopril Sodium 40 mg tabletTake 1/2 tablet [...] the following areas and commit to making halfway changes. EAT A WHOLE FOOD, PLANT BASED [...] on file. Cosign accepted by STAS MORA MD[[id number]] on 09/30/2016 2:01 PM Fosinopril Sodium 40 [...] on file.Follow-up and Disposition History RecordedEncounter Number: [id number] Status:Closed by DARRELL OLIVEIRA MD on 06/02/17 [facility] PROGRESSon 06-02-2017 PROGRESS HNO ID: [id number] thor: Darrell Stahl: (none)Author Type: PhysicianType: Progress NotesFiled: 06/02/2017 9:31 AMNote Text:PERTINENT CARDIAC HISTORYASHD - PCI LAD 2003HTNHLCarotid diseaseSyncopePAFADHERENCE TO GUIDELINESACE-I or ARB for HF with prior LVEF<40 (NQF 0081) - N/AASA or Plavix for ASHD (NQF 0067) - METBeta jazmin for ASHD with prior TN or prior LVEF<40 (NQF 0070) - N/ABeta [...] with treatment plan.This note was generated using [employer] voice recognition system, and theremay be some [...] ectopics. 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 Currently taking cycle qh6zd-8.5mg-2.5mg repeat MESFIN: No Please review and advise.Mahesh [...] file. Status:Closed by DAO BISHOP on 01/23/17 [facility] Vital Signs Date Time Vital Sign Value Performing Clinician Facility 01-06-2025 09:34-0400 Body height 182.[address] Stas Mora MD Work Phone: 4(992)[phone] [place] [address] 09-06-2024 14:15-0400 Body temperature 98 [degF] Dr. Stas Mora MD Work Phone: 3(875)332-748311 [place] [address] 09-06-2024 14:15-0400 Diastolic blood pressure 88 mm[Hg] Dr. Stas Mora MD Work Phone: 5(048)449-385911 [place] [address] 09-06-2024 14:15-0400 Heart rate 78 /min Dr. Stas Mora MD Work Phone: [facility] 09-06-2024 14:15-0400 Respiratory rate 18 /min Dr. Stas Mora MD Work Phone: 6(889)879-101668 [place] [address] 09-06-2024 14:15-0400 SaO2% (BldA) [Mass fraction] 97 % Dr. Stas Mora MD Work Phone: [facility] 09-06-2024 14:15-0400 Systolic blood pressure 137 mm[Hg] Dr. Stas Mora MD Work Phone: [facility] 09-04-2024 12:05-0400 Inhaled oxygen flow rate 2 L/min Dr. Stas Mora MD Work Phone: [facility] 09-01-2024 11:52-0400 Body height 182.[address] Stas Mora MD Work Phone: 9(479)393-841111 [place] [address] 09-01-2024 11:52-0400 Body mass index (BMI) [Ratio] 21.6 kg/m2 Dr. Stas Mora MD Work Phone: 8(066)333-644511 [place] [address] 09-01-2024 11:52-0400 Body weight 72.[address] Stas Mora MD Work Phone: 9(584)222-369111 [place] [address] 09-01-2024 11:00-0400 Diastolic blood pressure 79 mm[Hg] Dr. Stas Mora MD Work Phone: 0(572)147-760411 [place] [address] 09-01-2024 11:00-0400 Heart rate 70 /min Dr. Stas Mora MD Work Phone: 8(125)364-141811 [place] [address] 09-01-2024 11:00-0400 Respiratory rate 18 /min Dr. Stas Mora MD Work Phone: 8(661)658-494311 [place] [address] 09-01-2024 11:00-0400 SaO2% (BldA) [Mass fraction] 98 % Dr. Stas Mora MD Work Phone: 5(953)649-265911 [place] [address] 09-01-2024 11:00-0400 Systolic blood pressure 180 mm[Hg] Dr. Stas Mora MD Work Phone: 2(377)448-088811 [place] [address] 09-01-2024 09:52-0400 Body temperature 98.9 [degF] Dr. Stas Mora MD Work Phone: 8(249)733-608111 [place] [address] 09-01-2024 07:31-0400 Body height 182.[address] Stas Mora MD Work Phone: 8(534)657-874411 [place] [address] 09-01-2024 07:31-0400 Body mass index (BMI) [Ratio] 23.4 kg/m2 Dr. Stas Mora MD Work Phone: 7(765)049-212811 [place] [address] 09-01-2024 07:31-0400 Body weight 78.[address] Stas Mora MD Work Phone: 8(180)244-913111 [place] [address] 08-31-2024 11:05-0400 Body mass index (BMI) [Ratio] 22.35 kg/m2 Luciana Cisneros MD Work Phone: [facility] 08-31-2024 11:05-0400 Body weight 73.94 kg Luciana Cisneros MD Work Phone: [facility] 08-31-2024 11:05-0400 Diastolic blood pressure 74 mm[Hg] Luciana Cisneros MD Work Phone: [facility] 08-31-2024 11:05-0400 Heart rate 74 /min Luciana Cisneros MD Work Phone: [facility] 08-31-2024 11:05-0400 Respiratory rate 12 /min Luciana Cisneros MD Work Phone: [facility] 08-31-2024 11:05-0400 SaO2% (BldA) [Mass fraction] 98 % Luciana Cisneros MD Work Phone: [facility] 08-31-2024 11:05-0400 Systolic blood pressure 124 mm[Hg] Luciana Cisneros MD Work Phone: [facility] 07-28-2024 11:12-0400 Diastolic blood pressure 78 mm[Hg] Stas Mora MD Work Phone: [facility] 07-28-2024 11:12-0400 Systolic blood pressure 136 mm[Hg] Stas Mora MD Work Phone: [facility] 07-28-2024 11:10-0400 Body mass index (BMI) [Ratio] 22.4 kg/m2 Stas Mora MD Work Phone: [facility] 07-28-2024 11:10-0400 Body weight 74.1 kg Stas Mora MD Work Phone: [facility] 07-28-2024 11:10-0400 Heart rate 56 /min Stas Mora MD Work Phone: [facility] 07-28-2024 11:10-0400 Respiratory rate 16 /min Stas Mora MD Work Phone: [facility] 06-01-2024 14:52-0400 Body height 181.9 cm Lucaina Cisneros MD Work Phone: [facility] 06-01-2024 14:52-0400 Body mass index (BMI) [Ratio] 22.33 kg/m2 Luciana Cisneros MD Work Phone: [facility] 06-01-2024 14:52-0400 Body weight 73.85 kg Luciana Cisneros MD Work Phone: [facility] 06-01-2024 14:52-0400 Diastolic blood pressure 60 mm[Hg] Luciana Cisneros MD Work Phone: [facility] 06-01-2024 14:52-0400 Heart rate 46 /min Luciana Cisneros MD Work Phone: [facility] 06-01-2024 14:52-0400 SaO2% (BldA) [Mass fraction] 98 % Luciana Cisneros MD Work Phone: [facility] 06-01-2024 14:52-0400 Systolic blood pressure 132 mm[Hg] Luciana Cisneros MD Work Phone: [facility] 05-26-2024 09:18-0500 Diastolic blood pressure 82 mm[Hg] Stas Mora MD Work Phone: [facility] 05-26-2024 09:18-0500 Systolic blood pressure 144 mm[Hg] Stas Mora MD Work Phone: [facility] 05-26-2024 09:06-0500 Body mass index (BMI) [Ratio] 22.19 kg/m2 Stas Mora MD Work Phone: [facility] 05-26-2024 09:06-0500 Body weight 73.5 kg Stas Mora MD Work Phone: [facility] 05-26-2024 09:06-0500 Heart rate 56 /min Stas Mora MD Work Phone: [facility] 05-26-2024 09:06-0500 Respiratory rate 18 /min Stas Mora MD Work Phone: [facility] 04-27-2024 09:34-0500 Body height 182 cm Luciana Cisneros MD Work Phone: [facility] 04-27-2024 09:34-0500 Body mass index (BMI) [Ratio] 22.51 kg/m2 Luciana Cisneros MD Work Phone: [facility] 04-27-2024 09:34-0500 Body weight 74.57 kg Luciana Cisneros MD Work Phone: [facility] 04-27-2024 09:34-0500 Diastolic blood pressure 62 mm[Hg] Luciana Cisneros MD Work Phone: [facility] 04-27-2024 09:34-0500 Heart rate 60 /min Luciana Cisneros MD Work Phone: [facility] 04-27-2024 09:34-0500 SaO2% (BldA) [Mass fraction] 98 % Luciana Cisneros MD Work Phone: [facility] 04-27-2024 09:34-0500 Systolic blood pressure 110 mm[Hg] Luciana Cisneros MD Work Phone: [facility] 11-26-2023 10:33-0400 Diastolic blood pressure 80 mm[Hg] Stas Mora MD Work Phone: [facility] 11-26-2023 10:33-0400 Systolic blood pressure 144 mm[Hg] Stas Mora MD Work Phone: [facility] 11-26-2023 10:22-0400 Body mass index (BMI) [Ratio] 21.95 kg/m2 Stas Mora MD Work Phone: [facility] 11-26-2023 10:22-0400 Body weight 71.4 kg Stas Mora MD Work Phone: [facility] 11-26-2023 10:22-0400 Heart rate 60 /min Stas Mora MD Work Phone: [facility] 11-26-2023 10:22-0400 Respiratory rate 18 /min Stas Mora MD Work Phone: [facility] 09-15-2023 08:38-0400 Body mass index (BMI) [Ratio] 24.52 kg/m2 Stas Mora MD Work Phone: [facility] 09-15-2023 08:38-0400 Body weight 79.74 kg Stas Mora MD Work Phone: [facility] 09-15-2023 08:38-0400 Diastolic blood pressure 84 mm[Hg] Stas Mora MD Work Phone: [facility] 09-15-2023 08:38-0400 Heart rate 76 /min Stas Mora MD Work Phone: [facility] 09-15-2023 08:38-0400 Respiratory rate 18 /min Stas Mora MD Work Phone: [facility] 09-15-2023 08:38-0400 Systolic blood pressure 138 mm[Hg] Stas Mora MD Work Phone: [facility] 08-14-2023 09:57-0400 Body mass index (BMI) [Ratio] 22.59 kg/m2 Stas Mora MD Work Phone: [facility] 08-14-2023 09:57-0400 Body weight 73.48 kg Stas Mora MD Work Phone: [facility] 08-14-2023 09:57-0400 Diastolic blood pressure 80 mm[Hg] Stas Mora MD Work Phone: [facility] 08-14-2023 09:57-0400 Heart rate 64 /min Stas Mora MD Work Phone: [facility] 08-14-2023 09:57-0400 Respiratory rate 14 /min Stas Mora MD Work Phone: [facility] 08-14-2023 09:57-0400 Systolic blood pressure 140 mm[Hg] Stas Mora MD Work Phone: [facility] 06-01-2023 15:08-0400 Body weight 75.75 kg Stas Mora MD Work Phone: [facility] 06-01-2023 15:08-0400 Diastolic blood pressure 90 mm[Hg] Stas Mora MD Work Phone: [facility] 06-01-2023 15:08-0400 Heart rate 82 /min Stas Mora MD Work Phone: [facility] 06-01-2023 15:08-0400 Respiratory rate 16 /min Stas Mora MD Work Phone: [facility] 06-01-2023 15:08-0400 SaO2% (BldA) [Mass fraction] 100 % Stas Mora MD Work Phone: [facility] 06-01-2023 15:08-0400 Systolic blood pressure 140 mm[Hg] Stas Mora MD Work Phone: [facility] 02-16-2023 13:57-0500 Diastolic blood pressure 62 mm[Hg] Stas Mora MD Work Phone: [facility] 02-16-2023 13:57-0500 Heart rate 62 /min Stas Mora MD Work Phone: [facility] 02-16-2023 13:57-0500 Respiratory rate 16 /min Stas Mora MD Work Phone: [facility] 02-16-2023 13:57-0500 Systolic blood pressure 110 mm[Hg] Stas Mora MD Work Phone: [facility] 02-10-2023 16:59-0500 Diastolic blood pressure 68 mm[Hg] [facility] 02-10-2023 16:59-0500 Heart rate 79 /min [facility] 02-10-2023 16:59-0500 Respiratory rate 12 /min [facility] 02-10-2023 16:59-0500 SaO2% (BldA) [Mass fraction] 98 % [facility] 02-10-2023 16:59-0500 Systolic blood pressure 153 mm[Hg] [facility] 02-10-2023 14:37-0500 Body mass index (BMI) [Ratio] 22.1 kg/m2 [facility] 02-10-2023 14:37-0500 Body weight 74.3 kg [facility] 02-10-2023 14:32-0500 Body height 182.88 cm [facility] 02-10-2023 14:32-0500 Body temperature 98 [degF] [facility] 11-17-2022 17:22-0400 Diastolic Blood Pressure Non-Invasive 68 1 STERLING FROMMELT DO [facility] 11-17-2022 17:22-0400 Heart rate 76 /min STERLING FROMMELT DO [facility] 11-17-2022 17:22-0400 Respiratory rate 18 /min STERLING FROMMELT DO [facility] 11-17-2022 17:22-0400 Systolic Blood Pressure Non-Invasive 126 1 STERLING FROMMELT DO [facility] 11-17-2022 15:23-0400 Body height 185.4 cm STERLING FROMMELT DO [facility] 11-17-2022 15:23-0400 Body temperature 97.88 [degF] STERLING FROMMELT DO [facility] 11-17-2022 15:23-0400 Body weight 79.6 kg STERLING FROMMELT DO [facility] 11-17-2022 15:23-0400 Diastolic Blood Pressure Non-Invasive 70 1 STERLING FROMMELT DO [facility] 11-17-2022 15:23-0400 Heart rate 89 /min STERLING FROMMELT DO [facility] 11-17-2022 15:23-0400 Respiratory rate 18 /min STERLING FROMMELT DO [facility] 11-17-2022 15:23-0400 Systolic Blood Pressure Non-Invasive 134 1 STERLING LYNCH DO [facility] 08-26-2022 13:12-0400 Body height 180.3 cm Stas Mora MD Work Phone: [facility] 08-26-2022 13:12-0400 Body weight 78.74 kg Stas Mora MD Work Phone: [facility] 08-26-2022 13:12-0400 Diastolic blood pressure 74 mm[Hg] Stas Mora MD Work Phone: [facility] 08-26-2022 13:12-0400 Heart rate 66 /min Stas Mora MD Work Phone: [facility] 08-26-2022 13:12-0400 Respiratory rate 16 /min Stas Mora MD Work Phone: [facility] 08-26-2022 13:12-0400 Systolic blood pressure 122 mm[Hg] Stas Mora MD Work Phone: [facility] 12-26-2021 11:22-0400 Body weight 78.56 kg Stas Mora MD Work Phone: [facility] 12-26-2021 11:22-0400 Diastolic blood pressure 80 mm[Hg] Stas Mora MD Work Phone: [facility] 12-26-2021 11:22-0400 Heart rate 58 /min Stas Mora MD Work Phone: [facility] 12-26-2021 11:22-0400 Respiratory rate 16 /min Stas Mora MD Work Phone: [facility] 12-26-2021 11:22-0400 Systolic blood pressure 142 mm[Hg] Stas Mora MD Work Phone: [facility] 12-22-2021 11:13-0400 Body temperature 97.6 [degF] Dr. Stas Mora Work Phone: [facility] Work Phone: 12-22-2021 11:13-0400 Diastolic blood pressure 58 mm[Hg] Dr. Stas Mora Work Phone: [facility] Work Phone: 12-22-2021 11:13-0400 Heart rate 63 /min Dr. Stas Moar Work Phone: [facility] Work Phone: 12-22-2021 11:13-0400 Respiratory rate 16 /min Dr. Stas Mora Work Phone: [facility] Work Phone: 12-22-2021 11:13-0400 SaO2% (BldA) [Mass fraction] 96 % Dr. Stas Mora Work Phone: [facility] Work Phone: 12-22-2021 11:13-0400 Systolic blood pressure 142 mm[Hg] Dr. Stas Mora Work Phone: [facility] Work Phone: 12-21-2021 20:06-0400 Body height 182.[address] Stas Mora Work Phone: [facility] Work Phone: 12-21-2021 20:06-0400 Body mass index (BMI) [Ratio] 22.6 kg/m2 Dr. Stas Mora Work Phone: [facility] Work Phone: 12-21-2021 20:06-0400 Body weight 75.[address] Stas Mora Work Phone: [facility] Work Phone: 12-21-2021 19:15-0400 Diastolic blood pressure 81 mm[Hg] [facility] Work Phone: 12-21-2021 19:15-0400 Heart rate 70 /min [facility] Work Phone: 12-21-2021 19:15-0400 Respiratory rate 18 /min [facility] Work Phone: 12-21-2021 19:15-0400 SaO2% (BldA) [Mass fraction] 96 % [facility] Work Phone: 12-21-2021 19:15-0400 Systolic blood pressure 171 mm[Hg] [facility] Work Phone: 12-21-2021 19:02-0400 Body temperature 97.6 [degF] [facility] Work Phone: 12-21-2021 18:17-0400 Body height 182.88 cm [facility] Work Phone: 12-21-2021 18:17-0400 Body mass index (BMI) [Ratio] 24.2 kg/m2 [facility] Work Phone: 12-21-2021 18:17-0400 Body weight 80.9 kg [facility] Work Phone: 09-05-2021 11:21-0400 Body height 182.9 cm Stas Mora MD Work Phone: [facility] 09-05-2021 11:21-0400 Body weight 80.2 kg Stas Mora MD Work Phone: [facility] 09-05-2021 11:21-0400 Diastolic blood pressure 70 mm[Hg] Stas Mora MD Work Phone: [facility] 09-05-2021 11:21-0400 Heart rate 62 /min Stas Mora MD Work Phone: [facility] 09-05-2021 11:21-0400 Respiratory rate 16 /min Stas Mora MD Work Phone: [facility] 09-05-2021 11:21-0400 Systolic blood pressure 136 mm[Hg] Stas Mora MD Work Phone: [facility] 07-08-2021 10:41-0400 Body weight 83.55 kg Stas Mora MD Work Phone: [facility] 07-08-2021 10:41-0400 Diastolic blood pressure 78 mm[Hg] Stas Mora MD Work Phone: [facility] 07-08-2021 10:41-0400 Heart rate 60 /min Stas Mora MD Work Phone: [facility] 07-08-2021 10:41-0400 Respiratory rate 16 /min Stas Mora MD Work Phone: [facility] 07-08-2021 10:41-0400 Systolic blood pressure 120 mm[Hg] Stas Mora MD Work Phone: [facility] Encounters Encounter Date Encounter Type Care Provider Facility Start: 01-25-2025 ambulatory Shayy Villanueva cility:[facility] Start: 01-23-2025 ambulatory Stas Mora Facilit y:[facility] Start: 01-10-2025 ambulatory Stas Mora Facilit y:[facility] Start: 12-28-2024 End: 12-28-2024 ambulatory Halina Carmona EMAIL DEPLOYMENT SPECIALIST [place] [place]: 12-22-2024 End: 12-22-2024 ambulatory Cj Costa [place] Start: 12-21-2024 Registered Referred Shayy Berrios Start: 12-21-2024 End: 12-21-2024 ambulatory Stas Mora Facility:[facility] Start: 12-14-2024 Registered Referred Shayy Berrios Start: 12-14-2024 End: 12-14-2024 ambulatory Stas Mora Facility:[facility] Start: 11-30-2024 Registered Referred Shayy Berrios Start: 11-29-2024 End: 11-30-[address] Stas Mora MD Work Phone: [facility] Start: 11-29-2024 End: 11-29-[address] Shayy Curtis MD -[facility] Work Phone: Start: 11-25-2024 [facility] Start: 11-24-2024 End: 11-25-[address] Stas Mora MD Work Phone: [facility] Start: 11-24-2024 End: 11-24-2024 Patient encounter procedure Halina HO -[facility] Work Phone: Start: 11-23-2024 ambulatory Efewrobsonbe Martinghe OLS Fa cility:[facility] Start: 11-23-2024 [facility] Start: 11-02-2024 ambulatory Efewongbe Martinghe OLS Fa cility:[facility] Start: 11-02-2024 [facility] Start: 10-31-2024 ambulatory Efewongbe Martinghe OLS Fa cility:[facility] Start: 10-31-2024 [facility] Start: 10-25-2024 End: 10-25-[address] Stas Mora MD Work Phone: [facility] Start: 10-25-2024 End: 10-25-[address] [facility]: Start: 10-20-2024 End: 10-20-[address] Stas Mora MD Work Phone: [facility] Start: 10-20-2024 End: 10-20-2024 [facility]: Start: 10-06-2024 ambulatory Efbaldomero Bernale OLS Fa cility:[facility] Start: 10-06-2024 [facility] Start: 10-05-2024 ambulatory Shayy Curtis OLS Fa cility:[facility] Start: 10-05-2024 Registered Referred Shayy [facility] Start: 09-30-2024 End: 09-30-[address] Stas Mora MD Work Phone: -[facility] Start: 09-30-2024 End: 09-30-2024 Patient encounter procedure Halina Carmona EMAIL DEPLOYMENT SPECIALIST-C -[facility] Work Phone: Start: 09-29-2024 ambulatory Shayy GAMA Fa cility:[facility] Start: 09-29-2024 Registered Referred Shayy Cardozo Start: 09-28-2024 End: 09-28-[address] Stas Mora MD Work Phone: -[facility] Start: 09-28-2024 End: 09-28-2024 Departed Referred Shayy Cardozo Start: 09-28-2024 Registered Referred Shayy Cardozo Start: 09-28-2024 End: 09-28-2024 ambulatory Shayy GAMA Facility:[facility] Start: 09-26-2024 End: 09-26-[address] Stas Mora MD Work Phone: -[facility] Start: 09-26-2024 End: 09-26-2024 Departed Referred Shayy Cardozo Start: 09-26-2024 Registered Referred Shayy Cardozo Start: 09-26-2024 End: 09-26-2024 ambulatory Efbaldomero GAMA Facility:[facility] Start: 09-23-2024 ambulatory Efbaldomero Curtis OLS Fa cility:[facility] Start: 09-23-2024 Registered Referred Shayy Cardozo Start: 09-21-2024 End: 09-22-2024 Telephone encounter Stas Mora MD Work Phone: [facility] Start: 09-21-2024 ambulatory Shayy Curtis OLS Fa cility:[facility] Start: 09-21-2024 Registered Referred Shayy Cardozo Start: 09-20-2024 End: 09-20-[address] Stas Mora MD Work Phone: [facility] Start: 09-20-2024 End: 09-20-[address] Shayy Curtis MD -[facility] Work Phone: Start: 09-19-2024 ambulatory Efbaldomero Bernale OLS Fa cility:[facility] Start: 09-19-2024 Registered Referred Shayy Cardozo Start: 09-15-2024 ambulatory Efewtimmy Curtis OLS Fa cility:[facility] Start: 09-15-2024 Registered Referred Shayy Cardozo Start: 09-14-2024 ambulatory Efewtimmy Curtis OLS Fa cility:[facility] Start: 09-14-2024 Registered Referred Shayy Cardozo Start: 09-12-2024 ambulatory Efewtimmy Curtis OLS Fa cility:[facility] Start: 09-12-2024 Registered Referred Shayy Cardozo Start: 09-08-2024 End: 09-08-2024 [facility] Start: 09-08-2024 End: 09-08-[address] Stas Mora MD Work Phone: [facility] Start: 09-08-2024 Registered Referred Shayy Cardozo Start: 09-07-2024 End: 09-07-2024 Patient encounter procedure Halina Tickton EMAIL DEPLOYMENT SPECIALIST-C [facility] Work Phone: Start: 09-07-2024 End: 09-07-[address] Stas Mora MD Work Phone: [facility] Start: 09-07-2024 Registered Referred Shayy Curtis MD -[facility] Start: 09-06-2024 Non-patient / Non-visit Dr. Navid Dominguez MD -[facility] Work Phone: Start: 09-05-2024 Non-patient / Non-visit Dr. Navid Dominguez MD -[facility] Work Phone: Start: 09-04-2024 Non-patient / Non-visit Dr. Andrea Wells MD [facility] Work Phone: Start: 09-03-2024 Non-patient / Non-visit Dr. Andrea Wells MD -[facility] Work Phone: Start: 09-02-2024 Non-patient / Non-visit Dr. Andrea Wells MD [facility] Work Phone: Start: 09-02-2024 ambulatory Kathy Wells Facility :[facility] Start: 09-02-2024 End: 09-06-2024 Evaluation and management of inpatient Dr. Navid Dominguez MD -[facility] Work Phone: Start: 09-01-2024 End: 09-01-2024 Telephone encounter [facility] Work Phone: [facility] Comment on above: Medication Problem ( Cost) Start: 09-01-2024 ambulatory Kathy Wells Facility :[facility] Start: 09-01-2024 Evaluation and management of inpatient Dr. Kathy Wells MD -[facility] Work Phone: Start: 09-01-2024 Non-patient / [facility] Start: 09-01-[address] Stas Mora MD Work Phone: [facility] Work Phone: Start: 08-31-2024 End: 08-31-2024 Telephone encounter Coretta Jalloh [facility] Ambulatory Telemanagement Comment on above: Anticoagulation Tele phone Fu (Home INR result ) Start: 08-31-2024 End: 08-31-2024 [facility] Start: 08-31-2024 End: 08-31-2024 Office outpatient visit 25 minutes Luciana Cisneros MD Work Phone: Geriatrics Comment on above: Moderate dementia wi thout behavioral disturbance, psychotic disturbance, mood disturbance, or anxiety, unspecified dementia type (HCC) (Primary Dx); Hallucinations; Screening for depression; Encounter for screening examination for other mental health and behavioral disorders Start: 08-31-2024 End: 08-31-2024 ambulatory LUCIANA CISNEROS Facility:[facility] Start: 08-03-2024 End: 08-03-2024 Telephone encounter Coretta Jalloh [facility] Ambulatory Telemanagement Comment on above: Anticoagulation Tele phone Fu (Lab INR result) Start: 08-03-2024 End: 08-03-2024 ambulatory STAS VENTURATAUNTON Facility:[facility] Start: 07-28-2024 End: 07-28-2024 Office outpatient visit 15 minutes Stas Mora MD Work Phone: [facility] Comment on above: Bursitis of right el bow, unspecified bursa (Primary Dx) Start: 07-28-2024 End: 07-28-2024 ambulatory STAS MORA Facility:[facility] Start: 07-06-2024 End: 07-06-2024 Telephone encounter Coretta Jalloh [facility] Ambulatory Telemanagement Comment on above: Anticoagulation Tele phone Fu (Lab INR result ) Start: 07-06-2024 End: 07-06-2024 ambulatory STAS MORA Facility:[facility] Start: 06-29-2024 End: 06-29-2024 [facility] Ambulatory Telemanagement Comment on above: Anticoagulation Tele phone Fu (Lab INR result ) Start: 06-29-2024 End: 06-29-2024 ambulatory STAS MORA Facility:[facility] Start: 06-01-2024 End: 06-01-2024 Office consultation new/estab patient 80 min Luciana Cisneros MD Work Phone: Geriatrics Comment on above: Mixed dementia (HCC) (Primary Dx); Vascular parkinsonism (HCC) Start: 06-01-2024 End: 06-01-2024 ambulatory LUCIANA CISNEROS Facility:[facility] Start: 06-01-2024 End: 08-01-2024 Follow-up encounter Luciana Cisneros MD Work Phone: Geriatrics Start: 05-26-2024 End: 05-26-2024 Telephone encounter Luciana Cisneros MD Work Phone: Geriatrics Comment on above: Appointment (Resched ule for geriatric f/u) Start: 05-26-2024 End: 05-26-2024 [facility] Start: 05-26-2024 End: 05-26-2024 Patient encounter procedure Stas Mora MD Work Phone: [facility] [place] Comment on above: Essential hypertensi on, benign (Primary Dx); Hyperlipidemia, unspecified hyperlipidemia type; Atherosclerosis of coronary artery without angina pectoris, unspecified vessel or lesion type, unspecified whether quinault or transplanted heart; Paroxysmal atrial fibrillation (HCC); Edema of both lower legs; History of stroke with residual effects; Dementia, unspecified dementia severity, unspecified dementia type, unspecified whether behavioral, psychotic, or mood disturbance or anxiety (HCC) Start: 05-25-2024 End: 05-25-2024 Telephone encounter Paige Hickman [facility] Ambulatory Telemanagement Comment on above: Anticoagulation Tele phone Fu (Lab INR Result ) Start: 05-25-2024 End: 05-25-2024 ambulatory STAS MORA Facility:[facility] Start: 05-23-2024 ambulatory LUCIANA CISNEROS Facility :[id number] Start: 05-23-2024 End: 05-23-2024 Subsequent hospital visit by physician [facility] Work Phone: [facility] Comment on above: Cognitive impairment , mild, 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] Start: 04-28-2024 End: 04-29-2024 Telephone encounter Stas Mora MD Work Phone: [facility] [place] Comment on above: Results Start: 04-27-2024 End: 04-27-2024 Telephone encounter Coretta Jalloh [facility] Ambulatory Telemanagement Comment on above: Anticoagulation Tele phone Fu (Lab INR result ) Start: 04-27-2024 End: 04-27-2024 ambulatory [facility] Facility:[facility] Start: 04-27-2024 End: 04-27-2024 Assmt & care planning pt w/cognitive impairment Luciana Cisneros MD Work Phone: Geriatrics Comment on above: Dementia, unspecifie d dementia severity, unspecified dementia type, unspecified whether behavioral, psychotic, or mood disturbance or anxiety (HCC) (Primary Dx); Cognitive impairment; Cognitive impairment, mild, so stated; Shuffling gait; Ambulatory dysfunction; Balance disorder Start: 04-27-2024 End: 04-27-2024 [facility] Facility:[facility] Start: 04-25-2024 End: 04-25-2024 Telephone encounter tSas Mora MD Work Phone: [facility] [place] Comment on above: memory issues Start: 04-13-2024 End: 04-13-2024 Tele[facility] Ambulatory Telemanagement Comment on above: Anticoagulation Tele phone Fu (Home INR result ) Start: 04-13-2024 End: 04-13-2024 ambulatory STAS MORA Facility:[facility] Start: 03-30-2024 End: 03-30-2024 Telephone encounter Coretta Jalloh [facility] Ambulatory Telemanagement Comment on above: Anticoagulation Tele phone Fu (Lab INR result ) Start: 03-30-2024 End: 03-30-2024 ambulatory STAS MORA Facility:[facility] Start: 03-17-2024 End: 03-17-2024 Telephone encounter Josy Gandhi [facility] Comment on above: Anticoagulation Tele phone Fu (Lab INR result ) Start: 03-17-2024 End: 03-17-2024 ambulatory STAS MORA Facility:[facility] Start: 03-03-2024 End: 03-03-2024 Telephone encounter Elise Paredes [facility] Ambulatory Telemanagement Comment on above: Anticoagulation Tele phone Fu (Lab INR result) Start: 03-03-2024 End: 03-03-2024 ambulatory [facility] Facility:[facility] Start: 02-10-2024 End: 02-10-2024 Telephone encounter Coretta Jalloh [facility] Ambulatory Telemanagement Comment on above: Anticoagulation Tele phone Fu (Lab INR result ) Start: 02-10-2024 End: 02-10-2024 ambulatory [facility] Facility:[facility] Start: 01-20-2024 End: 01-20-2024 Telephone encounter [facility] Ambulatory Telemanagement Comment on above: Anticoagulation Tele phone Fu (Lab INR results ) Start: 01-04-2024 End: 01-04-2024 Telephone encounter Stas Mora MD Work Phone: [facility] Comment on above: Medication Request Start: 12-24-2023 End: 12-24-2023 Telephone encounter Elise Paredes [facility] Ambulatory Telemanagement Comment on above: Anticoagulation Tele phone Fu (Lab INR) Start: 12-10-2023 End: 12-10-2023 Telephone encounter Elise Paredes [facility] Ambulatory Telemanagement Comment on above: Anticoagulation Tele phone Fu (Lab INR) Start: 11-26-2023 End: 11-26-2023 Telephone encounter Elise Paredes [facility] Ambulatory Telemanagement Comment on above: Anticoagulation Tele phone Fu (Lab INR) Start: 11-26-2023 End: 11-26-2023 Patient encounter procedure Stas Mora MD Work Phone: [facility] [place] Comment on above: Essential hypertensi on, benign (Primary Dx); Hyperlipidemia, unspecified hyperlipidemia type; Edema of both lower legs; Paroxysmal atrial fibrillation (HCC); History of stroke with residual effects; 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, psychotic disturbance, mood disturbance, or anxiety (HCC); Urinary frequency; Abnormal CBC Start: 11-18-2023 End: 11-18-2023 Telephone encounter Coretta Jalloh [facility] Ambulatory Telemanagement Comment on above: Anticoagulation Tele phone Fu (Home INR) Start: 11-16-2023 End: 11-16-2023 Refill Stas Mora MD Work Phone: [facility] [place] Comment on above: Refill Request Start: 10-14-2023 Telephone encounter [facility] Comment on above: Anticoagulation Tele phone Fu (Home INR results ) Start: 09-16-2023 Telephone encounter Colleen Sommer [facility] Ambulatory Telemanagement Comment on above: Anticoagulation Tele phone Fu Start: 09-15-2023 End: 09-15-2023 Patient encounter procedure Stas Mora MD Work Phone: [facility] [place] Comment on above: Edema of both lower legs (Primary Dx) Start: 09-14-2023 End: 09-14-2023 ambulatory Nurse Intm/Famp Triage [facility] Work Phone: Nurse Phone Triage [...] encounter procedure Stas Mora MD Work Phone: [facility] Comment on above: Moderate vascular [...] results ) Start: 07-16-2023 Refill Elvis RASHID RN.[facility] Work Phone: [facility] [place] Comment [...] Telephone encounter Jerzy Easton MD Work Phone: [facility] [place] Comment on above: Anticoagulation Start: 06-11-2023 Telephone encounter Stas miranda MD Work Phone: [facility] [place] Comment on above: Anticoagulation Start: 06-08-2023 Telephone encounter Jenna singhof DAIRY PROCESSING EQUIPMENT OPERATOR.HIGHER LEVEL TEACHING ASSISTANT Work Phone: Family [facility] [place] Comment on above: Erroneous encounter- disregard Anticoagulation Start: 06-05-2023 Telephone encounter Jenna singhof DAIRY PROCESSING EQUIPMENT OPERATOR.HIGHER LEVEL TEACHING ASSISTANT Work Phone: [facility] [place] Comment on above: Results (Labs, Criti cleopatra ) Start: 06-04-2023 ambulatory Hortencia Winston RN NURSE O N CALL Comment on above: Results, Lab High Protime and INR Start: 06-04-2023 E-mail encounter babak m caregiver Jasmin Bell MD Work Phone: [facility] Start: 06-04-2023 Telephone encounter Jenna Armenta nhof DAIRY PROCESSING EQUIPMENT OPERATOR.HIGHER LEVEL TEACHING ASSISTANT Work Phone: [facility] [place] Comment on above: Results; Orders (Lab s ) Start: 06-03-2023 Telephone encounter Coretta Jalloh [facility] Ambulatory Telemanagement Comment on above: Anticoagulation Tele phone Fu (Lab INR results ) Start: 06-01-2023 End: 06-01-2023 Patient encounter procedure Stas Mora MD Work Phone: [facility] [place] Comment on above: Essential hypertensi on, benign (Primary Dx); Paroxysmal atrial fibrillation (HCC); Atherosclerosis of coronary artery without angina pectoris, unspecified vessel or lesion type, unspecified whether quinault or transplanted heart; Hyperlipidemia, unspecified hyperlipidemia type; History of stroke with residual effects; Speech disturbance, unspecified type Start: 05-27-2023 Telephone encounter Coretta Jalloh [facility] Telemanagement Comment on above: Anticoagulation Tele phone Fu (Lab INR results ) Start: 05-20-2023 Telephone encounter Coretta Mayocy [facility] Telemanagement Comment on above: Anticoagulation Tele phone Fu (Home INR results) Start: 05-13-2023 Telephone encounter Senia Phillips [facility] Ambulatory Telemanagement Comment on above: Anticoagulation Tele phone Fu (INR Lab Result) Start: 05-06-2023 Telephone encounter Coretta Tarcy [facility] Telemanagement Comment on above: Anticoagulation Tele phone Fu (Lab INR results ) Start: 04-29-2023 Telephone encounter Coretta Tarcy [facility] Telemanagement Comment on above: Anticoagulation Tele phone Fu (Home INR results ) Start: 02-20-2023 Telephone encounter Elise Paredes [facility] Comment on above: Anticoagulation Tele phone Fu (Lab INR) Start: 02-17-2023 Telephone encounter Stas miranda MD Work Phone: [facility] Comment on above: Results Start: 02-17-2023 End: 02-17-2023 Subsequent hospital visit by physician Mri [facility] (I-Stat/1.5t) Work Phone: Radiology Comment on above: Cerebral infarction, unspecified mechanism (HCC) [I63.9] Start: 02-16-2023 End: 02-16-2023 Patient encounter procedure Stas Mora MD Work Phone: [facility] Comment on above: Cerebral infarction, unspecified mechanism (HCC) (Primary Dx); Generalized weakness; Speech disturbance, unspecified type; Hyperlipidemia, unspecified hyperlipidemia type; Essential hypertension, benign; Paroxysmal atrial fibrillation (HCC) Start: 02-13-2023 Telephone encounter Elise Paredes [facility]ulatory Telemanagement Comment on above: Anticoagulation Tele phone Fu (Lab INR) Start: 02-10-2023 End: 02-10-2023 Emergency department patient visit [facility] Work Phone: Start: 02-06-2023 Telephone encounter Senia Phillips RPh P harmacy Ambulatory Telemanagement Comment on above: Anticoagulation Tele phone Fu (INR Lab Result) Start: 01-19-2023 Telephone encounter Pagie [facility] Tele[facility] Comment on above: Anticoagulation Tele phone Fu Start: 01-16-2023 Orders Only Stas newman MD Work Phone: [facility] Comment on above: jail current us e of anticoagulant (Primary Dx); [...] Result) Start: 11-21-2022 Telephone encounter Jeimy Duong [facility] Comment on above: Anticoagulation Tele phone Fu (Lab INR result) Start: 11-17-2022 End: 11-17-2022 Emergency department patient visit NONE PHYSICIAN Facility:B Start: 11-17-2022 End: 11-17-2022 Emergency department [facility] Start: 11-07-2022 Telephone encounter Senia Cross [...] Result) Start: 10-17-2022 Telephone encounter Yomi Covarrubiaszman [facility] Ambulatory Telemanagement Comment on above: Anticoagulation Tele phone Fu (Lab INR Result/) urgent PT INR result Start: 09-26-2022 Telephone encounter Jeimy Duong [facility] Comment on above: Anticoagulation Tele phone Fu (Lab INR result) Start: 09-12-2022 Telephone encounter Jeimy Duong [facility] Comment on above: Anticoagulation Tele phone Fu (Lab INR result) Start: 08-26-2022 End: 08-26-2022 Patient encounter procedure Stas Mora MD Work Phone: [facility] Comment on above: Encounter for Medica re annual wellness exam (Primary Dx); Paroxysmal atrial fibrillation (HCC); Essential hypertension, benign; Hyperlipidemia, unspecified hyperlipidemia type Start: 08-22-2022 Telephone encounter Senia Cross RPh P [facility] Ambulatory Telemanagement Comment on above: Anticoagulation Tele phone Fu Start: 07-18-2022 Telephone encounter Senia Phillips RPh P [facility]acy Ambulatory Telemanagement Comment on above: Anticoagulation Tele phone Fu (INR Lab Result) Start: 07-04-2022 Telephone encounter Lety Gandara [facility] Comment on above: Anticoagulation Tele phone Fu (Lab INR result ) Start: 06-23-2022 Refill Elvis RASHID RN.HIGHER LEVEL TEACHING ASSISTANT [facility] Comment on above: Refill Request Start: 06-20-2022 [...] Start: 05-22-2022 Telephone encounter Jenna Armenta nhof DAIRY PROCESSING EQUIPMENT OPERATOR.HIGHER LEVEL TEACHING ASSISTANT Work Phone: [facility] [place] Comment on above: Results (X-ray hip) Start: 05-21-2022 End: 05-21-2022 Subsequent hospital visit by physician Jaymie [facility] [place] Work Phone: Radiology Comment on above: Left hip pain [M25.5 52] Start: 05-21-2022 ambulatory Fani Grace RN NURSE O N CALL Comment on above: Fall Fall; Hip Pain Start: 05-19-2022 Telephone encounter Stas miranda MD Work Phone: Family [facility] [place] Comment on above: Anticoagulation Start: 05-16-2022 [...] Result) Start: 04-04-2022 Telephone encounter Elise Paredes [facility] Comment on above: Anticoagulation Tele phone Fu (Lab INR) Start: 03-31-2022 Telephone encounter Stas miranda MD Work Phone: Family [facility] [place] Comment on above: Release Of Medical R ecords ([place] PCP) Start: 03-21-2022 Telephone encounter Carmelina Cruz [facility] Comment on above: Anticoagulation Tele phone Fu Start: 02-21-2022 Telephone encounter Kristian Ferguson MD Work Phone: Family [facility] [place] Comment on above: Anticoagulation Start: 02-10-2022 Telephone encounter Stas miranda MD Work Phone: Family [facility] [place] Comment on above: Opened In Error Start: 01-27-2022 Telephone encounter Paige [facility] Comment on above: Anticoagulation Tele phone Fu (Lab INR Result) Start: 01-20-2022 Telephone encounter Paige Danitza R [facility] Ambulatory Telemanagement Comment on above: Anticoagulation Tele phone Fu (Lab INR Result) Start: 01-17-2022 Telephone encounter Stas miranda MD Work Phone: [facility] Comment on above: Anticoagulation; Cri tical Results (INR) Start: 01-13-2022 Refill Stas newman MD Work Phone: [facility] Comment on above: Refill Request; Refi ll Request Start: 01-03-2022 Telephone encounter Senia Alan [facility] Ambulatory Telemanagement Comment on above: Anticoagulation Tele phone Fu (INR Home Test Result) Start: 01-02-2022 Telephone encounter Stas miranda MD Work Phone: [facility] Comment on above: Results Start: 12-26-2021 End: 12-26-2021 Patient encounter procedure Stas Mora MD Work Phone: [facility] Comment on above: Hospital discharge f ollow-up (Primary Dx); Encounter for immunization; TIA (transient ischemic attack); Thyroid nodule; Essential hypertension, benign; Paroxysmal atrial fibrillation (HCC); Atherosclerosis of coronary artery without angina pectoris, unspecified vessel or lesion type, unspecified whether quinault or transplanted heart Start: 12-22-2021 Non-patient / Non-visit Dr. Maria E Mora Work Phone: [facility] Start: 12-21-2021 Non-patient / Non-visit Dr. Maria E Mora Work Phone: [facility] Start: 12-21-2021 End: 12-22-2021 Evaluation and management of inpatient [facility] Start: 12-21-2021 End: 12-22-[address] Stas Mora Work Phone: [facility] Work Phone: Start: 12-20-2021 Telephone encounter Stas miranda MD Work Phone: [facility] [place] Comment on above: Opened In Error Anticoagulation Tele phone Fu (INR Lab Result) Start: 12-06-2021 Telephone encounter Senia Phillips [facility] Ambulatory Telemanagement Comment on above: Anticoagulation Tele phone Fu (INR Lab Result) Start: 11-22-2021 Telephone encounter Janice Sal [facility] Ambulatory Telemanagement Comment on above: Anticoagulation Tele phone Fu (INR) Start: 11-08-2021 Telephone encounter Stas miranda MD Work Phone: [facility] [place] Comment on above: Opened In Error Anticoagulation Tele phone Fu (INR Lab Result) Start: 10-25-2021 Telephone encounter Janice Sal [facility] Ambulatory Telemanagement Comment on above: Anticoagulation Tele phone Fu (lab INR ) Start: 09-27-2021 Telephone encounter Yomi Wills [facility] Ambulatory Telemanagement Comment on above: Anticoagulation Tele phone Fu (Lab INR Result) Start: 09-13-2021 Orders Only Stas newman MD Work Phone: [facility] [place] Comment on above: jail current us e of anticoagulant (Primary Dx); Encounter for monitoring Coumadin therapy Anticoagulation Tele phone Fu (INR Lab Result) Start: 09-05-2021 End: 09-05-2021 Patient encounter procedure Stas Mora MD Work Phone: [facility] [place] Comment on above: Encounter for Medica re annual wellness exam (Primary Dx); Paroxysmal atrial fibrillation (HCC); Essential hypertension, benign Start: 08-30-2021 Telephone encounter Jenna Armenta nhof DAIRY PROCESSING EQUIPMENT OPERATOR.HIGHER LEVEL TEACHING ASSISTANT Work Phone: [facility] [place] Comment on above: Orders (INR ) Anticoagulation Tele phone Fu (INR Lab Result) Start: 08-16-2021 Orders Only Stas newamn MD Work Phone: [facility] [place] Comment on above: Anticoagulation Start: 08-02-2021 Telephone encounter Senia Alan [facility] Ambulatory Telemanagement Comment on above: Anticoagulation Tele phone Fu (INR Lab Result) Start: 07-16-2021 Telephone encounter Stas miranda MD Work Phone: [facility] Comment on above: Results Start: 07-13-2021 Refill Elvis RASHID RN.HIGHER LEVEL TEACHING ASSISTANT Work Phone: [facility] Comment on above: Refill Request Start: 07-08-2021 End: 07-08-2021 Patient encounter procedure Stas Mora MD Work Phone: [facility] Comment on above: Essential hypertensi on, benign (Primary Dx); Atherosclerosis of coronary artery without angina pectoris, unspecified vessel or lesion type, unspecified whether quinault or transplanted heart; Paroxysmal atrial fibrillation (HCC); Primary osteoarthritis of both knees Start: 07-03-2021 Telephone encounter Stas miranda MD Work Phone: [facility] Comment on above: Anticoagulation Tele phone Fu (Lab INR result) Start: 06-12-2021 Telephone encounter Stas miranda MD Work Phone: [facility] Comment on above: Anticoagulation (Lab INR result) Start: 03-12-2020 End: 03-12-2020 Subsequent hospital visit by physician Xr [facility] [place] Work Phone: Radiology Comment on above: Acute right-sided lo w back pain, unspecified whether sciatica present [M54.5] Start: 02-02-2018 Ambulatory DARRELL OLIVEIRA Facility :[facility] Start: 06-02-2017 End: 06-02-2017 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 Work Phone: Start: 05-19-2022 PROTHROMBIN TIME/PT [facility] [...] Start: 02-27-2031 Urine microalbumin profile [facility] Start: 05-26-2027 Diabetes Screening Diabetes Screenok g [facility] Start: 06-02-2026 [facility] Start: 08-15-2025 DIABETES SCREEN DIABETES SCREEN [facility] Start: 08-15-2025 [facility] Start: 05-25-2025 Hepatitis B surface antibody level LDL Cholesterol [facility] Start: 03-30-2025 End: 03-30-2025 Patient encounter procedure 03/30/2025 11:00 AM EST Office Visit Geriatrics [address] [place], [place] [phone] Luciana Cisneros MD [address] [place], [place] [phone] follow up 6 months Geriatrics Comment on above: follow up 6 months Start: 02-21-2025 DIABETES SCREEN DIABETES SCREEN [facility] Start: 01-10-2025 Registered Referred Registered Refer [facility] Start: 12-06-2024 DIABETES SCREEN DIABETES SCREEN [facility] Start: 12-05-2024 End: 12-05-2024 Patient encounter procedure 12/05/2024 12:40 PM EDT Office Visit Family [facility] [address] [place] [address] Stas Mora MD [address] [place] [address] reschedule from 12/01 [facility] Comment on above: reschedule from 12/01 Start: 12-01-2024 End: 12-01-2024 Patient encounter procedure 12/01/2024 9:40 AM EDT Office Visit [facility] [place] [address] [place], [place] [phone] Stas Mora MD [address] [place], [place] [phone] 6 mo f/u [facility] [place] Comment on above: 6 mo f/u Start: 11-26-2024 End: 02-25-2025 CBC W Auto Differential panel - Blood COMPLETE BLOOD COUNT AND DIFFERENTIAL Lab Routine Essential hypertension, benign Expected: 11/26/2024 (Approximate), Expires: 02/25/2025 [facility] Comment on above: Expected: 11/26/2024 (Approximate), Expires: 02/25/2025 Start: 11-26-2024 End: 02-25-2025 Comprehensive metabolic 2000 panel - Serum or Plasma COMPREHENSIVE METABOLIC PANEL Lab Routine Essential hypertension, benign Hyperlipidemia, unspecified hyperlipidemia type Expected: 11/26/2024 (Approximate), Expires: 02/25/2025 [facility] Work Phone: Comment on above: Expected: 11/26/2024 (Approximate), Expires: 02/25/2025 Start: 11-26-2024 End: 02-25-2025 Lipid 1996 panel - Serum or Plasma LIPID PANEL BASIC Lab Routine Essential hypertension, benign Hyperlipidemia, unspecified hyperlipidemia type Expected: 11/26/2024 (Approximate), Expires: 02/25/2025 [facility] Comment on above: Expected: 11/26/2024 (Approximate), Expires: 02/25/2025 Start: 11-25-2024 RSV Vaccine (1 - 1-d ose 60+ series) RSV Vaccine (1 - 1-dose 60+ series) [facility] Comment on above: Postponed from 08/12 (Declined at this time) Start: 11-25-2024 RSV Vaccine (1 - 1-d ose 75+ series) RSV Vaccine (1 - 1-dose 75+ series) [facility] Comment on above: Postponed from 08/12 (Declined at this time) Start: 11-23-2024 [facility] Start: 11-21-2024 Influenza vaccination Influenza Vacc ine (#1) [facility] Start: 09-06-2024 Patient discharge [facility] Start: 09-02-2024 Admission procedure [facility] Start: 09-01-2024 End: 09-02-2024 [facility] Start: 09-01-2024 Blood culture Blood Culture [facility] Start: 09-01-2024 Application of intermittent pneumatic compression device [facility] Start: 09-01-2024 Fall prevention [facility] Start: 09-01-2024 Oxygen therapy [facility] Start: 09-01-2024 Provision of activit y privileges [facility] Start: 09-01-2024 Assessment of risk o f venous thromboembolism [facility] Start: 09-01-2024 Insertion of cathete r into peripheral vein [facility] Start: 09-01-2024 Providing care accor ding to standard [facility] Start: 09-01-2024 Referral to occupati onal therapist [facility] Start: 09-01-2024 Referral to service [facility] Start: 09-01-2024 [facility] Start: 09-01-2024 Following clinical pathway protocol [facility] Start: 09-01-2024 Admission procedure [facility] Start: 09-01-2024 Hospital admission, emergency, from emergency room, medical nature [facility] Start: 08-31-2024 End: 08-31-2024 Patient encounter procedure 08/31/2024 11:00 AM EDT Office Visit Geriatrics [address] [place] [address] Luciana Cisneros MD [address] [place] [address] 3 month f/u Geriatrics Comment on above: 3 month f/u Start: 2024 Anxiety Screening Anxiety Screening [facility] Start: 2024 Depression Screening Depression Scre ening [facility] Start: 07-08-2024 DIABETES SCREEN DIABETES SCREEN [facility] Start: 06-02-2024 Hepatitis B surface antibody level LDL Cholesterol [facility] Start: 06-01-2024 End: 06-01-2024 Patient encounter procedure 06/01/2024 3:00 PM EDT Office Visit Geriatrics [address] [place] [address] Luciana Cisneros MD [address] [place] [address] Follow up visit for MRI Geriatrics Comment on above: Follow up visit for MRI Start: 06-01-2024 Covid-19 Vaccine () Covid-19 Vaccine () [facility] Start: 05-30-2024 End: 05-30-2024 Patient encounter procedure 05/30/2024 11:20 AM EDT Office Visit [facility] [place] [address] [place] [address] Luciana Cisneros MD [address] [facility] [place] [address] Follow up visit for MRI [facility] [place] Comment on above: Follow up visit for MRI Start: 05-26-2024 End: 05-26-2024 Patient encounter procedure 05/26/2024 9:20 AM EST Office Visit [facility] [place] [address] [place], [place] [phone] Stas oMra MD [address] [place] [address] 6 mo f/u Family [facility] Comment on above: 6 mo f/u Start: 05-25-2024 End: 08-24-2024 CBC W Auto Differential panel - Blood COMPLETE BLOOD COUNT AND DIFFERENTIAL Lab Routine Abnormal CBC Expected: 05/25/2024 (Approximate), Expires: 08/24/2024 [facility] Comment on above: Expected: 05/25/2024 (Approximate), Expires: 08/24/2024 Start: 05-25-2024 End: 08-24-2024 Comprehensive metabolic 2000 panel - Serum or Plasma COMPREHENSIVE METABOLIC PANEL Lab Routine Essential hypertension, benign Hyperlipidemia, unspecified hyperlipidemia type Expected: 05/25/2024 (Approximate), Expires: 08/24/2024 [facility] Work Phone: Comment on above: Expected: 05/25/2024 (Approximate), Expires: 08/24/2024 Start: 05-25-2024 End: 08-24-2024 Lipid 1996 panel - Serum or Plasma LIPID PANEL BASIC Lab Routine Essential hypertension, benign Hyperlipidemia, unspecified hyperlipidemia type Expected: 05/25/2024 (Approximate), Expires: 08/24/2024 [facility] Comment on above: Expected: 05/25/2024 (Approximate), Expires: 08/24/2024 Start: 05-25-2024 End: 05-25-2024 ambulatory 05/25/2024 8:30 AM EST Results Only [place] [facility] [address] [facility] [place] [address] [facility] Start: 05-23-2024 End: 05-23-2024 Patient encounter procedure 05/23/2024 2:30 PM EST Appointment [facility] [address] [place] [address] Cognitive impairment, mild, 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] [facility] Comment on above: Cognitive impairment , mild, 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] Start: 04-29-2024 End: 04-29-2024 Patient encounter procedure 04/29/2024 3:40 PM EST Office Visit [facility] [place] [address] [facility] [address] Stas Mora MD [address] [facility] [place], [place] [phone] memory issues,See TE [facility] [place] Comment on above: memory issues,See TE Start: 04-27-2024 End: 04-27-2024 Patient encounter procedure 04/27/2024 9:30 AM EST Office Visit Geriatrics [address] [facility] [place], [place] [phone] Luciana Cisneros MD [address] [facility] [place] [address] Dementia, unspecified dementia severity, unspecified dementia type, unspecified whether behavioral, psychotic, or mood disturbance or anxiety (HCC) [F03.90] Geriatrics Comment on above: Dementia, unspecifie d dementia severity, unspecified dementia type, unspecified whether behavioral, psychotic, or mood disturbance or anxiety (HCC) [F03.90] Start: 03-23-2024 Advance Directive Discussion Advance Directive Discussion [facility] Start: 03-23-2024 Medicare Advantage A nnual Wellness Visit Medicare Advantage Annual Wellness Visit [facility] Start: 03-13-2024 DIABETES SCREEN DIABETES SCREEN [facility] Start: 11-26-2023 End: 11-26-2023 Patient encounter procedure Family [place] Comment on above: 6 month follow up 6 month follow up, jessica bashir, on aricept x 3 months Start: 11-22-2023 Covid-19 Vaccine () Covid-19 Vaccine () [facility] Start: 11-22-2023 Influenza vaccination Influenza Vacc ine (#1) [facility] Start: 09-15-2023 End: 09-15-2023 Patient encounter procedure 09/15/2023 8:40 AM EDT Office Visit [facility] [place] [address] [place] [phone] Stas Mora MD [address] [place], [place] [phone] leg swelling- both legs--See triage 09/14/2023. Family [place] Comment on above: leg swelling- both l egs--See triage 09/14/2023. Start: 08-16-2023 Hepatitis B surface antibody level LDL CHOLESTEROL [facility] Start: 08-14-2023 End: 08-14-2023 Patient encounter procedure 08/14/2023 10:00 AM EDT Office Visit [facility] [place] [place] [address] [place] [phone] Stas Mora MD [address] [place], [place] [phone] Memory Issues [facility] [place] Comment on above: Memory Issues Start: 06-04-2023 End: 09-03-2023 Ferritin [Mass/volume] in Serum or Plasma [facility] Work Phone: Comment on above: Expected: 06/04/2023 , Expires: 09/03/2023 Start: 06-04-2023 End: 09-03-2023 Iron and Iron binding capacity panel - Serum or Plasma [facility] Work Phone: Comment on above: Expected: 06/04/2023 , Expires: 09/03/2023 Start: 06-01-2023 End: 08-31-2023 CBC panel - Blood by Automated count CBC Lab Routine Paroxysmal atrial fibrillation (HCC) Essential hypertension, benign Expected: 06/01/2023 (Approximate), Expires: 08/31/2023 [facility] Work Phone: Comment on above: Expected: 06/01/2023 (Approximate), Expires: 08/31/2023 Start: 06-01-2023 End: 08-31-2023 Comprehensive metabolic 2000 panel - Serum or Plasma COMP METABOLIC PANEL Lab Routine Paroxysmal atrial fibrillation (HCC) Essential hypertension, benign Hyperlipidemia, unspecified hyperlipidemia type Expected: 06/01/2023 (Approximate), Expires: 08/31/2023 [facility] Work Phone: Comment on above: Expected: 06/01/2023 (Approximate), Expires: 08/31/2023 Start: 06-01-2023 End: 08-31-2023 Lipid 1996 panel - Serum or Plasma LIPID PANEL BASIC Lab Routine Paroxysmal atrial fibrillation (HCC) Essential hypertension, benign Hyperlipidemia, unspecified hyperlipidemia type Expected: 06/01/2023 (Approximate), Expires: 08/31/2023 [facility] Work Phone: Comment on above: Expected: 06/01/2023 (Approximate), Expires: 08/31/2023 Start: 05-13-2023 Covid-19 Vaccine () Covid-19 Vaccine () [facility] Start: 03-23-2023 Advance Directive Discussion Advance Directive Discussion [facility] Start: 03-23-2023 Behavioral Health Screening Behavioral Health Screening [facility] Start: 03-23-2023 Depression Assessment Depression Ass essment [facility] Start: 02-21-2023 Hepatitis B surface antibody level LDL CHOLESTEROL [facility] Start: 02-10-2023 [facility] Start: 12-06-2022 Hepatitis B surface antibody level LDL CHOLESTEROL [facility] Start: 11-21-2022 Covid-19 Vaccine () Covid-19 Vaccine () [facility] Start: 11-21-[address] [facility] Start: 09-05-2022 PNEUMOCOCCAL: 65+ (2 - PCV) PNEUMOCOCCAL: 65+ (2 - PCV) [facility] Comment on above: Postponed from 02/21 (Declined at this time) Start: 07-08-2022 Hepatitis B surface antibody level LDL CHOLESTEROL [facility] Start: 04-26-2022 COVID-19 VACCINE (6 - Pfizer series) COVID-19 VACCINE (6 - Pfizer series) [facility] Start: 03-23-2022 ADVANCE DIRECTIVE DISCUSSION ADVANCE DIRECTIVE DISCUSSION [facility] Start: 03-23-2022 DEPRESSION ASSESSMENT DEPRESSION ASS ESSMENT [facility] Start: 03-13-2022 Hepatitis B surface antibody level LDL CHOLESTEROL [facility] Start: 03-10-2022 End: 05-10-2022 CBC panel - Blood by Automated count CBC Lab Routine TIA (transient ischemic attack) Essential hypertension, benign Atherosclerosis of coronary artery without angina pectoris, unspecified vessel or lesion type, unspecified whether quinault or transplanted heart Expected: 03/10/2022 (Approximate), Expires: 05/10/2022 [facility] Work Phone: Comment on above: Expected: 03/10/2022 (Approximate), Expires: 05/10/2022 Start: 03-10-2022 End: 05-10-2022 Comprehensive metabolic 2000 panel - Serum or Plasma COMP METABOLIC PANEL Lab Routine TIA (transient ischemic attack) Essential hypertension, benign Atherosclerosis of coronary artery without angina pectoris, unspecified vessel or lesion type, unspecified whether quinault or transplanted heart Expected: 03/10/2022 (Approximate), Expires: 05/10/2022 [facility] Work Phone: Comment on above: Expected: 03/10/2022 (Approximate), Expires: 05/10/2022 Start: 03-10-2022 End: 05-10-2022 Lipid 1996 panel - Serum or Plasma LIPID PANEL BASIC Lab Routine TIA (transient ischemic attack) Essential hypertension, benign Atherosclerosis of coronary artery without angina pectoris, unspecified vessel or lesion type, unspecified whether quinault or transplanted heart Expected: 03/10/2022 (Approximate), Expires: 05/10/2022 [facility] Work Phone: Comment on above: Expected: 03/10/2022 (Approximate), Expires: 05/10/2022 Start: 01-03-2022 End: 03-05-2022 Comprehensive metabolic 2000 panel - Serum or Plasma COMP METABOLIC PANEL Lab Routine Atherosclerosis of coronary artery without angina pectoris, unspecified vessel or lesion type, unspecified whether quinault or transplanted heart Essential hypertension, benign Expected: 01/03/2022 (Approximate), Expires: 03/05/2022 [facility] Work Phone: Comment on above: Expected: 01/03/2022 (Approximate), Expires: 03/05/2022 Start: 01-03-2022 End: 03-05-2022 LIPID PANEL BASIC LIPID PANEL BASIC Lab Routine Atherosclerosis of coronary artery without angina pectoris, unspecified vessel or lesion type, unspecified whether quinault or transplanted heart Essential hypertension, benign Expected: 01/03/2022 (Approximate), Expires: 03/05/2022 [facility] Work Phone: Comment on above: Expected: 01/03/2022 (Approximate), Expires: 03/05/2022 Start: 12-24-2021 Prothrombin time [facility] Work Phone: Start: 12-23-2021 Prothrombin time [facility] Work Phone: Start: 12-22-2021 Patient discharge [facility] Work Phone: Start: 12-21-2021 Assessment of risk o f venous thromboembolism [facility] Work Phone: Start: 12-21-2021 Cardiac monitoring [facility] Work Phone: Start: 12-21-2021 Catheterization of vein [facility] Work Phone: Start: 12-21-2021 Continuous pulse oximetry [facility] Work Phone: Start: 12-21-2021 Elevation of head of bed [facility] Work Phone: Start: 12-21-2021 Exercises [facility] Work Phone: Start: 12-21-[address] anned interventions [facility] Work Phone: Start: 12-21-2021 Insertion of cathete r into peripheral vein [facility] Work Phone: Start: 12-21-2021 Measuring intake and output [facility] Work Phone: Start: 12-21-2021 Notification of physician [facility] Work Phone: Start: 12-21-2021 Oxygen therapy [facility] Work Phone: Start: 12-21-2021 Providing care accor ding to standard [facility] Work Phone: Start: 12-21-2021 Provision of activit y privileges [facility] Work Phone: Start: 12-21-2021 Referral to occupati onal therapist [facility] Work Phone: Start: 12-21-2021 Referral to service [facility] Work Phone: Start: 12-21-2021 Tobacco use cessatio n education [facility] Work Phone: Start: 12-21-2021 US scan of thyroid Thyroid [facility] Work Phone: Start: 12-21-2021 [facility] Work Phone: Start: 12-21-2021 End: 12-21-2021 Following clinical pathway protocol [facility] Work Phone: Start: 12-21-2021 Verification routine [facility] Work Phone: Start: 12-21-2021 Admission procedure [facility] Work Phone: Start: 12-21-2021 CT of head without contrast STROKE Brain/Head without Cont [facility] Work Phone: Start: 12-21-2021 CT Unspecified body region WO contrast [facility] Work Phone: Start: 12-21-2021 Oxygen therapy [facility] Work Phone: Start: 12-21-2021 End: 12-22-2021 [facility] Work Phone: Start: 11-21-2021 Influenza vaccination INFLUENZA (#1) [facility] Start: 09-24-2021 COVID-19 VACCINE (5 - Booster for Pfizer series) COVID-19 VACCINE (5 - Booster for Pfizer series) [facility] Start: 08-30-2021 End: 10-30-2021 PT panel - Platelet poor plasma by Coagulation assay [facility] Work Phone: Comment on above: Expected: 08/30/2021 , Expires: 10/30/2021 Start: 07-08-2021 End: 09-07-2021 Comprehensive metabolic 2000 panel - Serum or Plasma [facility] Work Phone: Comment on above: Expected: 07/08/2021 (Approximate), Expires: 09/07/2021 Start: 07-08-2021 End: 09-07-2021 LIPID PANEL BASIC [facility] Work Phone: Comment on above: Expected: 07/08/2021 (Approximate), Expires: 09/07/2021 Start: 04-27-2021 COVID-19 VACCINE (4 - Booster for Pfizer series) COVID-19 VACCINE (4 - Booster for Pfizer series) [facility] Start: 03-23-2021 ADVANCE DIRECTIVE DISCUSSION ADVANCE DIRECTIVE DISCUSSION [facility] Start: 03-23-2021 DEPRESSION ASSESSMENT DEPRESSION ASS ESSMENT [facility] Start: 02-21-2009 Pneumococcal Vaccine : 65+ (2 - PCV) Pneumococcal Vaccine: 65+ (2 - PCV) [facility] Start: 02-21-2009 PNEUMOCOCCAL: 65+ (2 - PCV) PNEUMOCOCCAL: 65+ (2 - PCV) [facility] Start: 02-23-2008 Urine microalbumin profile DTAP,TDAP,TD (1 - Tdap) [facility] Start: 1995 RSV Vaccine (1 - 1-d ose 60+ series) RSV Vaccine (1 - 1-dose 60+ series) [facility] Start: 08-12-1985 SHINGRIX VACCINE (1 of 2) VALDES GRIX VACCINE (1 of 2) [facility] Anion gap in Serum o r Plasma [facility] BUN/Creatinine ratio [facility] Calcium [Mass/volume ] in Serum or Plasma [facility] Carbon dioxide, tota l [Moles/volume] in Central venous blood [facility] Creatinine [Mass/vol ume] in Serum or Plasma [facility] Glucose [Mass/volume ] in Serum or Plasma [facility] Hemoglobin.gastroint estin al.lower [Presence] in Stool by Immunoassay FECAL OCCULT BLOOD TEST Lab Routine Abnormal CBC 06/04/2023 2:13 PM EDT [facility] Work Phone: INR in Blood by Coagulation assay [facility] Measurement of renal function [facility] End: 05-27-2025 MR Brain WO contrast MRI BRAIN W QUANT WO IVCON Radiology Routine Cognitive impairment, mild, so stated 1 Occurrences starting 04/27/2024 until 05/27/2025 [facility] Work Phone: Comment on above: 1 Occurrences starti ng 04/27/2024 until 05/27/2025 End: 05-27-2025 MR Unspecified body region 3D post processing MRI 3D BRAIN QUANT Radiology Routine Cognitive impairment, mild, so stated 1 Occurrences starting 04/27/2024 until 05/27/2025 [facility] Comment on above: 1 Occurrences starti ng 04/27/2024 until 05/27/2025 End: 03-17-2024 Mri brain brain stem w/o contrast material MRI BRAIN WO IVCON Radiology STAT Cerebral infarction, unspecified mechanism (HCC) 1 Occurrences starting 02/16/2023 until 03/17/2024 [facility] Work Phone: Comment on above: 1 Occurrences starti ng 02/16/2023 until 03/17/2024 Mri brain brain stem w/o contrast material MRI BRAIN WO IVCON Radiology STAT Cerebral infarction, unspecified mechanism (HCC) 02/17/2023 8:13 AM EST [facility] Work Phone: Patient Education ED Weakness (U ncertain Cause) [facility] Work Phone: Patient referral [facility] Work Phone: Potassium measurement [facility] Prothrombin time [facility] End: 09-13-2022 PT panel - Platelet poor plasma by Coagulation assay PROTHROMBIN TIME/PT 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 Encounter for monitoring Coumadin therapy Once per week for 99 Occurrences starting 09/13/2021 until 09/13/2022 [facility] Work Phone: Comment on above: Once per week for 99 Occurrences starting 09/13/2021 until 09/13/2022 PT panel - Platelet poor plasma by Coagulation assay PROTHROMBIN TIME/PT Lab Routine jail current use of anticoagulant Encounter for monitoring Coumadin therapy 09/13/2021 8:42 AM EDT [facility] Work Phone: End: 01-16-2024 PT panel - Platelet poor plasma by Coagulation assay PROTHROMBIN TIME/PT Lab Routine jail current use of anticoagulant Paroxysmal atrial fibrillation (HCC) Once per week for 99 Occurrences starting 01/16/2023 until 01/16/2024 [facility] Work Phone: Comment on above: Once per week for 99 Occurrences starting 01/16/2023 until 01/16/2024 End: 12-23-2024 PT panel - Platelet poor plasma by Coagulation assay PROTHROMBIN TIME Lab STAT jail current use of anticoagulant 24 Occurrences starting 12/24/2023 until 12/23/2024 [facility] Work Phone: Comment on above: 24 Occurrences start ing 12/24/2023 until 12/23/2024 Serum chloride measurement [facility] Sodium measurement [facility] Urea nitrogen [Mass/volume] in Serum or Plasma [facility] End: 01-25-2023 Us soft tissue head & neck real time imge docm US THYROID/PARATHYROID Radiology Routine Thyroid nodule 1 Occurrences starting 12/26/2021 until 01/25/2023 [facility] Work Phone: Comment on above: 1 Occurrences starti ng 12/26/2021 until 01/25/2023 [facility] Immunizations Immunization Date Immunization Notes Care Provider Rich vargas 12-03-2023 influenza virus vacc ine, unspecified formulation Stas Mora MD Work Phone: [facility] 01-10-2023 influenza (HD-IIV4) vaccine, age 65+ yr, high dose, quadrivalent, PF (FLUZONE HIGH-DOSE) Coretta Jalloh [facility] 01-10-2023 influenza virus vacc ine, unspecified formulation Coretta Yeimi [facility] 12-26-2021 influenza, high-dose , quadrivalent vaccine (FLUZONE HIGH DOSE QUADRIVALENT) Stas Mora MD Work Phone: [facility] 12-26-2021 influenza virus vacc ine, unspecified formulation Senia Phillips [facility] 02-27-2021 tetanus toxoid, redu natividad diphtheria toxoid, and acellular pertussis vaccine, adsorbed Stas Mora MD Work Phone: [facility] 02-27-2021 zoster vaccine recombinant Stas Mora MD Work Phone: [facility] 12-25-2020 Covid (Pfizer) Dr. Stas gonzales Work Phone: [facility] 12-10-2020 influenza (HD-IIV4) vaccine, age 65+ yr, high dose, quadrivalent, PF (FLUZONE HIGH-DOSE) [facility] 12-10-2020 influenza, high dose seasonal, preservative-free Stas Mora MD Work Phone: [facility] 09-17-2020 zoster vaccine recombinant Stas Mora MD Work Phone: [facility] 05-09-2020 Covid (Pfizer) Dr. Stas gonzales Work Phone: [facility] 04-18-2020 Covid (Pfizer) Dr. Stas gonzales Work Phone: [facility] 12-24-2016 influenza, high dose seasonal, preservative-free Stas Mora MD Work Phone: [facility] 12-22-2015 Influenza virus vaccine [facility] 12-22-2015 influenza, seasonal, injectable, preservative free Stas Mora MD Work Phone: [facility] Work Phone: 01-30-2014 influenza, high dose seasonal, preservative-free Stas Mora MD Work Phone: [facility] Work Phone: 01-24-2013 influenza virus vacc ine, unspecified formulation Stas Mora MD Work Phone: [facility] 02-22-2008 pneumococcal polysaccharide vaccine, 23 valent Stas Mora MD Work Phone: [facility] Work Phone: 02-22-2008 tetanus and diphther ia toxoids, adsorbed, preservative free, for adult use (2 Lf of tetanus toxoid and 2 Lf of diphtheria toxoid) Stas Mora MD Work Phone: [facility] Work Phone: Payers Date Payer Category Payer Self-pay [id number] 2022 Unknown [id number] 2016 Medicare [employer] [place] [id number] 2016-Present [phone] [address] [place] [address] O [id number] 2016 Medicare [employer] [place] [id number] 2016-Present [phone] [address] [place] [address] O [id number] 2016 Medicare (Managed Care) [place] MED[place] [id number] 2016 Medicare [id number] 1935 Unknown [id number] 2.840.1.483849.3.579. 2.627 1935 Unknown [id number] 2.840.1.978799.3.579. 2.627 Unknown VA AUTH REQUIR ED SEE NOTE [id number] Unknown VA AUTH REQUIR ED SEE NOTE . [id number] Unknown [id number] 2.16840.1.002210.3.579. 2.462 Unknown [id number] 2.16840.1.979078.3.579. 2.462 Unknown [id number] 2.16840.1.823217.3.579. 2.462 Unknown [id number] 2.16840.1.894134.3.579. 2.462 Unknown [id number] 2.16840.1.495036.3.579. 2.462 Unknown [id number] 2.16840.1.730998.3.579. 2.462 Unknown [id number] 2.16840.1.109479.3.579. 2.462 Unknown [id number] 2.16840.1.170250.3.579. 2.462 Unknown [id number] 2.16840.1.660478.3.579. 2.462 Unknown [id number] 2.16.840.1.613963.3.579. 2.462 Unknown [id number] 2.16.840.1.177970.3.579. 2.462 Unknown [id number] 2.16.840.1.476819.3.579. 2.462 Unknown [id number] 2.16.840.1.923650.3.579. 2.462 Unknown [id number] 2.16840.1.153278.3.579. 2.462 Unknown [id number] 2..840.1.882683.3.579. 2.462 Unknown [id number] 2.840.1.003030.3.579. 2.462 Unknown [id number] 2.840.1.719695.3.579. 2.462 Unknown [id number] 2.840.1.992933.3.579. 2.462 Unknown [id number] 2.840.1.814795.3.579. 2.462 Unknown [id number] 2.840.1.161527.3.579. 2.462 Unknown [id number] 2.840.1.687782.3.579. 2.462 Unknown [id number] 2.840.1.711310.3.579. 2.462 Unknown [id number] .840.1.536779.3.579. 2.462 Unknown [id number] .840.1.941981.3.579. 2.462 Unknown [id number] 2.16840.1.687213.3.579. 2.462 Unknown [id number] 2.16840.1.027226.3.579. 2.462 Unknown [id number] 2.16.840.1.357762.3.579. 2.462 Unknown [id number] 2.840.1.301689.3.579. 2.462 Unknown [id number] 2.16.840.1.798267.3.579. 2.462 Unknown [id number] 2.16.840.1.555767.3.579. 2.462 Unknown [id number] 2.16.840.1.315959.3.579. 2.462 Unknown [id number] 2.16.840.1.889648.3.579. 2.462 Unknown [id number] 2.16.840.1.721039.3.579. 2.462 Unknown [id number] 2.16.840.1.448030.3.579. 2.462 Unknown [id number] 2.16.840.1.106609.3.579. 2.462 Unknown [id number] 2.16.840.1.241117.3.579. 2.462 Unknown [id number] 2.16.840.1.107681.3.579. 2.462 Unknown [id number] 2.16.840.1.329014.3.579. 2.462 Unknown [id number] 2.16.840.1.752357.3.579. 2.462 Unknown [id number] 2.16.840.1.333162.3.579. 2.462 Social History Date Type Detail Facility Start: 05-04-2017 End: 01-06-2025 Tobacco smoking status CTIS Ex-smoker [facility] Start: 02-15-2021 End: 07-28-2024 Alcohol intake Current non-drinker of alcohol (finding) [facility] Start: 08-26-2020 End: 08-29-2021 History SDOH Alcohol Frequency 2 [facility] Start: 08-26-2020 End: 08-29-2021 History SDOH Alcohol Std Drinks 1 [facility] Start: 08-26-2020 End: 08-29-2021 History SDOH Social Connections [facility] 3 [facility] Start: 08-26-2020 End: 08-29-2021 History SDOH Social Connections [facility] 5 [facility] Start: 08-26-2020 History SDOH Physical Activity MPS 6 [facility] Start: 08-26-2020 Education 12 [facility] Start: 1935 Sex Assigned At Male [facility] Start: 02-11-2020 End: 12-26-2021 Exposure to SARS-CoV-2 (event) Not sure [facility] History of tobacco use Current smoker [facility] Start: 05-04-2017 End: 12-26-2021 Tobacco use and exposure Smokeless tobacco non-user [facility] Start: 12-21-2021 End: 02-10-2023 Tobacco smoking status NHIS Unknown if ever smoked [facility] Start: 12-22-2021 Non-smoker [facility] Start: 12-26-2021 Tobacco Comment 30 yaers ago [facility] Start: 02-28-2020 End: 08-29-2021 History of Social function [facility] Start: 02-28-2020 End: 08-29-2021 Social connection and isolation panel [facility] Do you belong to any clubs or organizations such as evangelical groups, Friendfers, fraStroho or athletic groups, or school groups? No [facility] Are you now , , , , never or living with a partner? [facility] How often to you hav e a drink containing alcohol? Monthly or less [facility] How many standard dr inks containing alcohol do you have on a typical day? 1 or 2 [facility] How often do you hav e 6 or more drinks on 1 occasion? Never [facility] How hard is it for y ou to pay for the very basics like food, housing, medical care, and heating Not hard at all [facility] Do you feel stress - tense, restless, nervous, or anxious, or unable to sleep at night because your mind is troubled all the time - these days [OSQ] Not at all [facility] (I/We) worried velvet er (my/our) food would run out before (I/we) got money to buy more. Never true [facility] Start: 08-26-2020 Gender identity Identifies as male gender (finding) [facility] Start: 08-26-2020 Sexual orientation Heterosexual (finding) [facility] Sex Assigned At Sex [facility] Are you now , , , , never or living with a partner? [facility] How often to you hav e a drink containing alcohol? 2-4 times a month [facility] Goals Date Patient Goal Desired Activity /State Functional Status Date Assessment Result Facility 09-06-2024 Functional status Ambulates [facility] Work Phone: 07-26-2024 Total score [AUDIT-C] 1 07/27/19 6:26 PM EDT User, Olena [facility] 07-26-2024 Within the last year , have you been humiliated or emotionally abused in other ways by your partner or ex-partner? No 07/26/2024 6:26 PM EDT User, [email or web address] No [facility] 07-26-2024 Within the last year , have you been afraid of your partner or ex-partner? No 07/26/2024 6:26 PM EDT User, [email or web address] No [facility] 07-26-2024 Within the last year , have you been raped or forced to have any kind of sexual activity by your partner or ex-partner? No 07/26/2024 6:26 PM EDT User, [email or web address] No [facility] 07-26-2024 Within the last year , have you been kicked, hit, slapped, or otherwise physically hurt by your partner or ex-partner? No 07/26/2024 6:26 PM EDT User, [email or web address] No [facility] 07-26-2024 How often to you hav e a drink containing alcohol? Monthly or less 07/26/2024 6:26 PM EDT User, [email or web address] Monthly or less [facility] 07-26-[address] inks containing alcohol do you have on a typical day? 1 or 2 07/26/2024 6:26 PM EDT User, [email or web address] 1 or 2 [facility] 07-26-2024 How often do you hav e 6 or more drinks on 1 occasion? Never 07/26/2024 6:26 PM EDT User, [email or web address] Never [facility] 11-17-2022 Functional Status Up ad tara Samira Hogan [place] 11-17-2022 Functional Status Identified as high risk, Fall ID band on, Room located near nursing station [facility] 12-22-2021 Functional status Ambulates;Chair [facility] Work Phone: 07-02-2016 Are you deaf, or do you have serious difficulty hearing No 07/02/2016 2:52 PM EDT Anita Zhang, DO No [facility] Work Phone: 07-02-2016 Are you blind, or do you have serious difficulty seeing, even when wearing glasses No 07/02/2016 2:52 PM EDT Anita Zhang, DO No [facility] 07-02-2016 Do you have serious difficulty walking or climbing stairs No 07/02/2016 2:52 PM EDT Anita Zhang, DO No [facility] 07-02-2016 Do you have difficul ty dressing or bathing No 07/02/2016 2:52 PM EDT Anita Zhang, DO No [facility] 07-02-2016 Because of a physica l, mental, or emotional condition, do you have difficulty doing errands alone such as visiting a physician's office or shopping No 07/02/2016 2:52 PM EDT Anita Zhang, DO No [facility] Mental Status Date Assessment Result Facility 09-06-2024 Cognitive function Voice/Name [facility] Work Phone: 09-05-2024 Cognitive function Appropriate;Cooperativ e [facility] Work Phone: 02-10-2023 Cognitive function Level Of Cons ciousness Awake;Alert;Appropriate;Fol lows Commands [facility] Work Phone: 11-17-2022 Mental Status Orientation Oriented x 4 [facility] 11-17-2022 Mental Status [facility] 12-22-2021 Cognitive function Voice/Name [facility] Work Phone: 12-21-2021 Cognitive function Voice/Name [facility] Work Phone: 07-02-2016 Because of a physica l, mental, or emotional condition, do you have serious difficulty concentrating, remembering, or making decisions No 07/02/2016 2:52 PM EDT Anita Zhang, DO No [facility] Clinical Notes 03-12-2020 to 09-21-2024 Telephone [...] in there for two weeks. Please advise [facility] 09-21-2024 Miscellaneous Notes Formattin g of this note might be different from the original. [facility]. Maria Guadalupe states that he has been in there for two weeks. Please advise documented in this encounter [facility] 09-06-2024 Consult note [facility] 09-06-2024 Consult note Note Date/Time September 06, 2024 4:37pm [facility] Medical Records Department [address] [place] [address] Counseling Note - Pharmacy 09/06/24 1143 MR#: [id number] Acct: [id number] Name: ROBY FLORES Rep #:[id number] : 1935 89 From: Isabelle Summers PCP: Dr. Stas Mora MD Status:AD M IN Y Location: [place] [address] Pharmacy [place] Med Reconciliation Pharmacy Service has performed discharge [...] Signature (if applicable): Date CC: ~ Signed [facility] Work Phone: 1(567) 784-487706-17-2025 Discharge summary Author Navid Dominguez [facility] Note Date/Time September 06, 2024 11:[address] [place] [address] System Medical Records Department [address] [place] [address] Discharge Summary 09/06/24 1109 MR#: [id number] Acct: [id number] Name: ROBY FLORES Rep #:[id number] : 1935 89 From: Navid Trejo PCP: Dr. Stas Mora MD Status:AD IN Location: [place] [address] Providers Date of Admission: 09/02/24 Date of [...] explained to the [facility] and [facility]. 09/06: INR 2.4. Hold warfarin today and [...] The daughter is the healthcare power of electronic field service engineer. #History of dementia: On rivastigmine #Dyslipidemia: On [...] (Auto) 66.8, Lymph % (Auto) 16.4 L, Mills % (Auto) 9.1, Eos % (Auto) 6.3 [...] Halfway Facility Charges/Coding Visit Charges Inpatient E&M: 43611 Disch Hosp >30min 09/06/24 1114 <Electronically signed by Navid Dominguez MD> Cosigner Signature (if applicable): CC: Dr. Stas Mora MD; Dr. Navid Dominguez MD~ Signed [facility] Work Phone: 1(481) 434-781406-17-2025 Discharge summary Author Navid Dominguez [facility] Note Date/Time September 06, 2024 11:0 9am [facility] Medical Records Department [address] [place] [address] Transfer to [facility] MR#: [id number] Acct: [id number] Name: ROBY FLORES Rep #:[id number] : 1935 89 From: Navid Trejo PCP: Dr. Stas Mora MD Status:AD M IN Certification of patient admission REQUIRED AT TIME OF ADMISSION. I CERTIFY THAT POST-HOSPITAL [facility] SERVICES ARE REQUIRED TO BE GIVEN ON AN IN-PATIENT BASIS BECAUSE OF THE ABOVE NAMED PATIENT'S NEED FOR SENIOR LIVING CARE ON A CONTINUING BASIS FOR THE CONDITION(S) FOR WHICH HE/SHE WAS RECEIVING IN-PATIENT HOSPITAL SERVICES PRIOR TO HIS/HER TRANSFER TO THE [facility]. 09/06/24 1109<Electronically signed by Navid [...] explained to the patient and his [facility]. # Fever * Patient developed a fever. [...] The daughter is the healthcare power of electronic field service engineer. #History of dementia: On rivastigmine #Dyslipidemia: On [...] liberalized regular diet with consistency/texture as per TELEVISION PICTURE TUBE REBUILDER. Will continue 120mL ensure plus HP 4 [...] Mora MD; Dr. Kathy Wells MD ~ [facility] Work Phone: 1(672) 733-687806-17-2025 Discharge summary [facility] Medical Records Department [address] [place] [address] Discharge Summary 09/06/24 1109 MR#: [id number] Acct: [id number] Name: ROBY FLORES Rep #:[id number] : 1935 89 From: Navid Trejo PCP: Dr. Stas Mora MD Status:AD M IN Location: [place] [address] Providers Date of Admission: 09/02/24 Date of [...] explained to the patient and his [facility]. 09/06: INR 2.4. Hold warfarin today and [...] The daughter is the healthcare power of electronic field service engineer. #History of dementia: On rivastigmine #Dyslipidemia: On [...] (Auto) 66.8, Lymph % (Auto) 16.4 L, Mills % (Auto) 9.1, Eos % (Auto) 6.3 [...] Halfway Facility Charges/Coding Visit Charges Inpatient E&M: 72676 Disch Hosp >30min 09/06/24 1114 Cosigner Signature (if applicable): CC: Dr. Stas Mora MD; Dr. Navid Dominguez MD~ Signed [facility]06-17-2025 Discharge summary [facility] Medical Records Department [address] [place] [address] Transfer to [facility] MR#: [id number] Acct: [id number] Name: ROBY FLORES Rep #:[id number] : 1935 89 From: Navid Trejo PCP: Dr. Stas Mora MD Status:AD M IN Certification of patient admission REQUIRED AT TIME OF ADMISSION. I CERTIFY THAT POST-HOSPITAL [facility] SERVICES ARE REQUIRED TO BE GIVEN ON AN IN-PATIENT BASIS BECAUSE OF THE ABOVE NAMED PATIENT'S NEED FOR SENIOR LIVING CARE ON A CONTINUING BASIS FOR THE [...] The daughter is the healthcare power of electronic field service engineer. #History of dementia: On rivastigmine #Dyslipidemia: On [...] liberalized regular diet with consistency/texture as per TELEVISION PICTURE TUBE REBUILDER. Will continue 120mL ensure plus HP 4 [...] Mora MD; Dr. Kathy Wells MD ~ [facility]06-17-2025 [facility] Medical Records Department [facility] [place] [address] Discharge Summary 09/06/24 110 MR#: [id number] Acct: [id number] Name: ROBY FLORES Rep #: [id number] : 1935 89 From: Navid Dominguez MD PCP: Dr. Stas Mora MD Status:ADM IN Location: [address] Providers Date of Admission: 09/02/24 Date [...] The daughter is the healthcare power of electronic field service engineer. #History of dementia: On rivastigmine #Dyslipidemia: On [...] / Lab / Microbiol (more content not included)...[facility] 09-05-2024 Progress note Author Navid Dominguez [facility] Note Date/Time September 05, 2024 4:15 pm [facility] Medical Records Department [address] [place] [address] Progress Note - Hospitalist 09/05/24 1608 MR#: [id number] Acct: [id number] Name: ROBY FLORES Rep #:[id number] : 1935 89 From: Navid Trejo PCP: Dr. Stas Mora MD Status:AD M IN Location: [place] [address] Reason for Visit Reason for Visit: Diagnoses [...] Clarity Clear, Urine pH 7.0, Ur Specific [place] 1.005, Urine Protein 15 H, Urine Glucose [...] 77.2 H, Lymph % (Auto) 9.8 L, Mills % (Auto) 7.9, Eos % (Auto) 4.0, [...] explained to the patient and his [facility]. # Fever * Patient developed a fever. [...] The daughter is the healthcare power of electronic field service engineer. #History of dementia: On rivastigmine #Dyslipidemia: On statin #Benign essential hypertension: On lisinopril. DVT prophylaxis: * Resume Coumadin today. INR 1.8. Daughter still thinking about that she wants him to continue otherwise. Code status: DNRCCA no intubation * Disposition: Awaiting placement. PT OT on board. Charges/Coding Visit Charges Inpatient E&M: 71831 Subs Hosp L2 09/05/24 1615 <Electronically signed by Navid Dominguez MD> Cosigner Signature (if applicable): CC: ~ Signed [facility] Work Phone: 1(484) 209-754106-16-2025 Progress note [facility] Medical Records Department [address] [place] [address] Progress Note - Hospitalist 09/05/24 1603 MR#: [id number] Acct: [id number] Name: ROBY FLORES Rep #:[id number] : 1935 89 From: Navid Trejo PCP: Dr. Stas Mora MD Status:AD M IN Location: [place] XD883-6 Reason for Visit Reason for Visit: Diagnoses [...] Clarity Clear, Urine pH 7.0, Ur Specific [place] 1.005, Urine Protein 15 H, Urine Glucose [...] 77.2 H, Lymph % (Auto) 9.8 L, Mills % (Auto) 7.9, Eos % (Auto) 4.0, [...] explained to the patient and his [facility]. # Fever * Patient developed a fever. [...] The daughter is the healthcare power of electronic field service engineer. #History of dementia: On rivastigmine #Dyslipidemia: On statin #Benign essential hypertension: On lisinopril. DVT prophylaxis: * Resume Coumadin today. INR 1.8. Daughter still thinking about that she wants him to continue otherwise. Code status: DNRCCA no intubation * Disposition: Awaiting placement. PT OT on board. Charges/Coding Visit Charges Inpatient E&M: 90258 Subs Hosp L2 09/05/24 3451 Cosigner Signature (if applicable): CC: ~ Signed [facility]06-15-2025 Progress note Author Kathy Wells [facility] Note Date/Time September 04, 2024 3:37 pm [facility] Medical Records Department [address] [place] [address] Progress Note 09/04/24 1412 MR#: [id number] Acct: [id number] Name: ROBY FLORES Rep #:[id number] : 1935 89 From: Kathy Wells MD PCP: Dr. Stas Mora MD Status:AD M IN Location: [place] [address]1 Subjective Subjective Patient seen and examined. He [...] 78.0 H, Lymph % (Auto) 7.8 L, Mills % (Auto) 7.7, Eos % (Auto) 5.3 [...] The daughter is the healthcare power of electronic field service engineer. * In light of patient's confusion in [...] on board. Charges/Coding Visit Charges Inpatient E&M: 29661 Subs Hosp L2 09/04/24 9371 <Electronically signed by Kathy Wells MD> Kathy Wells MD Cosigner Signature (if applicable): CC: ~ Signed [facility] Work Phone: 1(957) 105-487906-15-2025 Progress note [facility] Medical Records Department [address] [place] [address] Progress Note 09/04/24 1412 MR#: [id number] Acct: [id number] Name: ROBY FLORES Rep #:[id number] : 1935 89 From: Kathy Wells MD PCP: Dr. Stas Mora MD Status:AD M IN Location: [place] PZ588-6 Subjective Subjective Patient seen and examined. He [...] 78.0 H, Lymph % (Auto) 7.8 L, Mills % (Auto) 7.7, Eos % (Auto) 5.3 [...] The daughter is the healthcare power of electronic field service engineer. * In light of patient's confusion in [...] on board. Charges/Coding Visit Charges Inpatient E&M: 21500 Subs Hosp L2 09/04/24 7954 Kathy Wells MD Cosigner Signature (if applicable): CC: ~ Signed [facility]06-14-2025 Progress note Author Kathy Wells [facility] Note Date/Time September 03, 2024 6:29 pm [facility] Medical Records Department [address] [place] [address] Progress Note 09/03/24 1135 MR#: [id number] Acct: [id number] Name: ROBY FLORES Rep #:[id number] : 1935 89 From: Kathy Wells MD PCP: Dr. Stas Mora MD Status:AD M IN Location: [place] SH121-7 Subjective Subjective Patient seen and examined. He [...] 83.4 H, Lymph % (Auto) 6.7 L, Mills % (Auto) 6.0, Eos % (Auto) 2.8, [...] The daughter is the healthcare power of electronic field service engineer. * In light of patient's confusion in [...] on board. Charges/Coding Visit Charges Inpatient E&M: 51538 Subs Hosp L2 09/03/24 7587 <Electronically signed by Kathy Wells MD> Kathy Wells MD Cosigner Signature (if applicable): CC: ~ Signed [facility] Work Phone: 1(388) 929-305206-14-2025 Progress note [facility] Medical Records Department [address] [place] [address] [place] [address] Progress Note 09/03/24 1135 MR#: [id number] Acct: [id number] Name: ROBY FLORES Rep #:[id number] : 1935 89 From: Kathy Wells MD PCP: Dr. Stas Mora MD Status:AD M IN Location: [place] HQ617-4 Subjective Subjective Patient seen and examined. He [...] 83.4 H, Lymph % (Auto) 6.7 L, Mills % (Auto) 6.0, Eos % (Auto) 2.8, [...] The daughter is the healthcare power of electronic field service engineer. * In light of patient's confusion in [...] on board. Charges/Coding Visit Charges Inpatient E&M: 05151 Subs Hosp L2 09/03/24 8288 Kathy Wells MD Cosigner Signature (if applicable): CC: ~ Signed [facility]06-14-2025 Consult note Author Spike De La Cruz [facility] Note Date/Time September 03, 2024 3:49 pm [facility] Medical Records Department [address] [place] [address] Pharmacokinetic/Renal -Consult 09/03/24 1548 MR#: [id number] Acct: [id number] Name: ROBY FLORES Rep #:[id number] : 1935 89 From: Spike Maynard [facility] PCP: Dr. Stas Mora MD Status:AD M IN Location: [facility] IW491-0 Consult Antibiotic Management Pharmacy has been consulted [...] Labs: Trough: Vancomycin (09/04/24 at 2130) 09/03/24 9579 <Electronically signed by Spike Angelo [facility]> Date _ Spike De La Cruz [facility] Cosigner Signature (if applicable): Date CC: ~ Signed [facility] Work Phone: 1(400) 447-499106-14-2025 Consult note [facility] Medical Records Department [address] [place] [address] Pharmacokinetic/Renal -Consult 09/03/24 1548 MR#: [id number] Acct: [id number] Name: ROBY FLORES Rep #:[id number] : 1935 89 From: Spike Maynard [facility] PCP: Dr. Stas Mora MD Status:AD M IN Location: [place] [address] Consult Antibiotic Management Pharmacy has been consulted [...] Vancomycin (09/04/24 at 2130) 09/03/24 1549 dominick [facility]> Date _ Spike De La Cruz [facility] Cosigner Signature (if applicable): Date CC: ~ Signed [facility]06-13-2025 Progress note Author Kathyrachel Wells [facility] Note Date/Time September 02, 2024 6:45 pm [facility] Medical Records Department [address] [place] [address] Progress Note 09/02/24 1404 MR#: [id number] Acct: [id number] Name: ROBY FLORES Rep #:[id number] : 1935 89 From: Kathy Wells MD PCP: Dr. Stas Mora MD Status:AD M IN Location: [place] [address] Subjective Subjective Patient seen and examined. He [...] (Auto) 87.9 H, Lymph %(Auto) 3.8 L, Mills % (Auto) 4.8, Eos % (Auto) 2.2, [...] The daughter is the healthcare power of electronic field service engineer. * In light of patient's confusion in [...] intubation * Charges/Coding Visit Charges Inpatient E&M: 56014 Subs Hosp L2 09/02/24 1845 <Electronically signed by Kathy Wells MD> Kathy Wells MD Cosigner Signature (if applicable): CC: ~ Signed [facility] Work Phone: 1(700) 413-527506-13-2025 Progress note [facility] Medical Records Department [address] [place] [address] Progress Note 09/02/24 1404 MR#: [id number] Acct: [id number] Name: ROBY FLORES Rep #:[id number] : 1935 89 From: Kathy Wells MD PCP: Dr. Stas Mora MD Status:AD M IN Location: [place] IR509-7 Subjective Subjective Patient seen and examined. He [...] (Auto) 87.9 H, Lymph %(Auto) 3.8 L, Mills % (Auto) 4.8, Eos % (Auto) 2.2, [...] The daughter is the healthcare power of electronic field service engineer. * In light of patient's confusion in [...] intubation * Charges/Coding Visit Charges Inpatient E&M: 94381 Subs Hosp L2 09/02/24 1847 Kathy Wells MD Cosigner Signature (if applicable): CC: ~ Signed [facility]06-13-2025 Evaluation note* Diagnosis Onset Date Resolution Status Admit Date Adult failure to thrive acute J [facility] 2024 12:49pm Chronic anticoagulation acute J [facility] 2024 12:49pm Contusion of hip acute August 12:49pm Fall acute September 02 12:49pm History of atrial fibrillation acute September 02, 2024 12:49pm History of dementia acute September 02, 2024 12:49pm History of TIAs acute August 12:49pm Unable to ambulate acute August 212024 12:49pm [facility] Work Phone: 1(750) 421-473506-13-2025 Evaluation note* Diagnosis Onset Date Resolution Status Admit Date Chronic anticoagulation acute J [facility] 2024 12:49pm Contusion of hip acute August 12:49pm Fall acute September 02 12:49pm History of atrial fibrillation acute September 02, 2024 12:49pm History of TIAs acute August 12:49pm Unable to ambulate acute August 212024 12:49pm Adult failure to thrive inactive J 2024 12:49pm History of dementia inactive September 02, 2024 12:49pm [facility] Work Phone: 1(781) 399-212306-12-2025 Consult note Author Zachary Lubin [facility] Note Date/Time September 01, 2024 9:15 pm [facility] Medical Records Department [address] [place] [address] Pharmacokinetic/Renal -Consult 09/01/242113 MR#: [id number] Acct: [id number] Name: ROBY FLORES Rep #:[id number] : 1935 89 From: Zachary Serrano od PCP: Dr. Stas Mora MD Status:ELIAS PORTER Y Location: [place] [address] Consult Antibiotic Management Pharmacy has been consulted [...] (if applicable): Date _ CC: ~ Signed [facility] Work Phone: 1(777) 525-362906-12-2025 Progress note Author Marta Black [facility] Note Date/Time September 01, 2024 7:55 pm [facility] Medical Records Department [address] [place] [address] Progress Note - Hospitalist 09/01/241952 MR#: [id number] Acct: [id number] Name: ROBY FLORES Rep #:[id number] : 1935 89 From: Marta Black DO PCP: Dr. Stas Mora MD Status:AD M [facility] Location: [facility] DE606-6 Hospitalist Note Called regarding Mr. Flores having [...] Cosigner Signature (if applicable): CC: ~ Signed [facility] Work Phone: 1(282) 485-695606-12-2025 Consult note [facility] Medical Records Department [address] [place] [address] Pharmacokinetic/Renal -Consult 09/01/242113 MR#: [id number] Acct: [id number] Name: ROBY FLORES Rep #:[id number] : 1935 89 From: Zachary Serrano od PCP: Dr. Stas Mora MD Status:AD M [place] Y Location: [place] [address] Consult Antibiotic Management Pharmacy has been consulted [...] 0830 09/01/24 2115 lood> Date _ Zachary Lubin Cosigner Signature (if applicable): Date _ CC: ~ Signed [facility]06-12-2025 History and physical note Author Kathy [facility] Note Date/Time September 01, 2024 6:04 pm [facility] Medical Records Department [address] [place] [address] H&P Exam - Hospitalist 09/01/24 1018 MR#: [id number] Acct: [id number] Name: ROBY FLORES Rep #:[id number] : 1935 89 From: Kathy Wells MD PCP: Dr. Stas Mora MD Status:AD M [facility] Location: [address] HPI - General General Date of [...] did not hit his head. As far assshaq knew he had not had any lightheadedness or dizziness, palpitations, nausea vomiting or any other such symptoms. Vitals in the ED were BP of 180/89, WA of 87, RR of 18 and temp [...] debility and weakness due to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 [facility]06-24-2024 Telephone encounter Note * Telephone Encounter [...] for tomorrow. 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 documented in this encounterC[facility] Telephone encounter Note * Telephone Encounter - Coretta Jalloh RPh - 08/26/2023 5:03 PM EDT [facility] Ambulatory Pharmacy Anticoagulation Clinic Anticoagulation Episode Summary Anticoagulation Care Providers Provider Role Specialty Phone number Stas Mora MD Referring Family Medicine [phone] Roby Flores is a 88 year old [...] Pharmacy Anticoagulation Clinic Pharmacy Anticoagulation Clinic Pager: [phone]. 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 documented in this encounterC[facility] Telephone encounter Note * Telephone Encounter - Coretta Jalloh RPh - 08/19/2023 5:09 PM EDT [facility] Ambulatory [facility] Anticoagulation Clinic Anticoagulation Episode Summary Anticoagulation Care Providers Provider Role Specialty Phone number Stas Mora MD Referring Family Medicine [phone] Roby Flores is a 88 year old [...] Pharmacy Anticoagulation Clinic Pharmacy Anticoagulation Clinic Pager: [phone]. [facility]05-29-2024 Miscellaneous Notes* Telephone Encounter - Coretta Jalloh RPh - 08/19/2023 5:09 PM EDT [facility] Ambulatory Pharmacy Anticoagulation Clinic Anticoagulation Episode Summary Anticoagulation Care Providers Provider Role Specialty Phone number Stas Mora MD Referring Family Medicine [phone] Roby Flores is a 88 year old [...] plan. Patient denies need for refills. Coretta Jalolh RPh Clinical Pharmacist, Pharmacy Anticoagulation Clinic Pharmacy Anticoagulation Clinic Pager: [phone]. documented in this encounterCleveland [facility]05-24-[facility] History of Present illness Narrative* Stas [...] thinks he is being sued by a evangelical and thathe was given a letter about it, doesn't know who the environment artist is or where the evangelical is. states this is not true. He was looking for his brother who lives out of state, thought he was still staying with them, however he has not been up to [place] since Jan. No hallucinations. Is not leaving [...] Coronary atherosclerosis of unspecified type of vessel, quinault or graft Coronary artery disease Other and [...] Past Histories independently gathered by the clinical youth support worker and the remaining scribed note [...] Palacio MA documented in this encounterC[facility]05-[facility]24 Telephone encounter Note * Telephone Encounter - Corteta Jalloh [facility] - 08/12/2023 4:27 PM EDT [facility] Ambulatory Pharmacy Anticoagulation Clinic Anticoagulation Episode Summary Anticoagulation Care Providers Provider Role Specialty Phone number Stas Mora MD Referring Family Medicine [phone] Roby Flores is a 87 year old [...] Pharmacy Anticoagulation Clinic Pharmacy Anticoagulation Clinic Pager: [phone]. 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 documented in this encounterC[facility]05[facility] Telephone encounter Note * Telephone Encounter - Coretta Jalloh RPh - 08/05/2023 4:41 PM EDT [facility] Ambulatory Pharmacy Anticoagulation Clinic Anticoagulation Episode Summary Anticoagulation Care Providers Provider Role Specialty Phone number Stas Mora MD Referring Family Medicine [phone] Roby Flores is a 87 year old [...] Pharmacy Anticoagulation Clinic Pharmacy Anticoagulation Clinic Pager: [phone]. 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 Elena Lopez [facility] Clinical Pharmacist, Pharmacy Anticoagulation Clinic Pharmacy Anticoagulation Clinic Pager: [phone]. [facility]05-08-2024 Miscellaneous Notes* Telephone Encounter - Elena Lopez RPh - 07/29/2023 3:21 PM EDT [facility] Ambulatory Pharmacy Anticoagulation Clinic Anticoagulation Episode Summary Anticoagulation Care Providers Provider Role Specialty Phone number Stas Mora MD Referring Family Medicine [phone] Roby Flores is a 87 year old [...] Pharmacy Anticoagulation Clinic Pharmacy Anticoagulation Clinic Pager: [phone]. documented in this encounterC[facility]05[facility] Telephone encounter Note * Telephone Encounter - Coretta Jalloh RPh - 07/22/2023 4:40 PM EDT [facility] Ambulatory Pharmacy Anticoagulation Clinic Anticoagulation Episode Summary Anticoagulation Care Providers Provider Role Specialty Phone number Stas Mora MD Referring Family Medicine [phone] Roby Flores is a 87 year old [...] Pharmacy Anticoagulation Clinic Pharmacy Anticoagulation Clinic Pager: [phone]. 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 Coretta Jalloh [facility] Clinical Pharmacist, Pharmacy Anticoagulation Clinic Pharmacy Anticoagulation Clinic Pager: [phone]. documented in this encounterC[facility]04-[facility] Telephone encounter Note * Telephone Encounter - Coretta Jalloh RPh - 07/15/2023 3:18 PM EDT [facility] Ambulatory Pharmacy Anticoagulation Clinic Anticoagulation Episode Summary Anticoagulation Care Providers Provider Role Specialty Phone number Stas Mora MD Referring Family Medicine [phone] Roby Flores is a 87 year old [...] Pharmacy Anticoagulation Clinic Pharmacy Anticoagulation Clinic Pager: [phone]. [facility]04-24-2024 Miscellaneous Notes* Telephone Encounter - Coretta Jalloh RPh - 07/15/2023 3:18 PM EDT [facility] Ambulatory Pharmacy Anticoagulation Clinic Anticoagulation Episode Summary Anticoagulation Care Providers Provider Role Specialty Phone number Stas Mora MD Referring Family Medicine [phone] Roby Flores is a 87 year old [...] Pharmacy Anticoagulation Clinic Pharmacy Anticoagulation Clinic Pager: [phone]. documented in this encounterC[facility]04-17-2024 Miscellaneous Notes* Telephone Encounter - Coretta Jalloh RPh - 07/08/2023 4:36 PM EDT [facility] Ambulatory Pharmacy Anticoagulation Clinic Anticoagulation Episode Summary Anticoagulation Care Providers Provider Role Specialty Phone number Stas Mora MD Referring Family Medicine [phone] Roby Flores is a 87 year old [...] Pharmacy Anticoagulation Clinic Pharmacy Anticoagulation Clinic Pager: [phone]. documented in this encounterC[facility]04-10-2024 Miscellaneous Notes* Telephone Encounter - Coretta Jalloh RPh - 07/01/2023 5:20 PM EDT [facility] Ambulatory Pharmacy Anticoagulation Clinic Anticoagulation Episode Summary Anticoagulation Care Providers Provider Role Specialty Phone number Stas Mora MD Referring Family Medicine [phone] Roby Flores is a 87 year old [...] lab INR check scheduled on 07/08/2023 Coretta Jalolh RPh Clinical Pharmacist, Pharmacy Anticoagulation Clinic Pharmacy Anticoagulation Clinic Pager: [phone]. documented in this encounterC[facility]04-[facility]-2024 Telephone encounter Note * Telephone Encounter - Adrian (Shucker)Elana - 06/25/2023 5:14 PM EDT Images from [...] remains on Remote TM list. Elana Campbell (Cursa[employer]me) [facility]04-04-2024 Miscellaneous Notes* Telephone Encounter - Adrian (Cursa[employer]me)Elana - 06/25/2023 5:14 PM EDT Images from [...] remains on Remote TM list. Elana Campbell ([employer]ursa[employer]me) * Telephone Encounter - Stas Mora MD - 06/25/2023 4:44 PM EDT It looks like my office became involved because the on-call doctor was called with his elevated INR. I would prefer he stay with the pharmacy for his routine monitoring. Stas Mora MD * Telephone Encounter - Adrian (Cursa[employer]me)Elana - 06/25/2023 4:03 PM EDT Pharm Phone [...] this time Please advise. Elana Campbell CPhT (Wireline Field Operator) Pharmacy Anticoagulation Clinic documented in this encounterC[facility]04-[facility]-2024 Telephone encounter Note * Telephone Encounter - Stas Mora MD - 06/25/2023 4:44 PM EDT It looks like my office became involved because the on-call doctor was called with his elevated INR. I would prefer he stay with the pharmacy for his routine monitoring. Stas Mora MD [facility]04-04-2024 Telephone encounter Note* Telephone Encounter - Adrian (Shucker)Elana - 06/25/2023 4:03 PM EDT Pharm Phone [...] this time Please advise. Elana Campbell CPhT (Wireline Field Operator) Pharmacy Anticoagulation Clinic [facility]04-03-2024 Miscellaneous Notes* Telephone Encounter - Jason [...] with VKA drugs, such as warfarin, the [employer] 2012 Guideline recommends [...] Chest 2012, 141:7S-47S Avel RA, et al. [facility] 2017, 70: 252-289 Confirmed that pt is taking 1 mg daily. No changes to diet, medications, missed or extra doses, etc. Keke Tsang MA documented in this encounterC[facility]03-22-2024 Miscellaneous Notes* Telephone Encounter - Marta [...] Cruz Ma documented in this encounterC[facility]03-18-2024 Miscellaneous Notes* Telephone Encounter - Keke [...] narrative: no documented in this encounterC[facility]03-15-2024 Miscellaneous Notes* Telephone Encounter - Halina [...] went over notes below from Jenna Fitzpatrick EMAIL DEPLOYMENT SPECIALIST. She said no change in his diet, [...] Fitzpatrick APRN.SHEMAR documented in this encounterC[facility]03-15-2024 Miscellaneous Notes* Telephone Encounter - Mrata Palacio MA - 06/05/2023 10:15 AM EDT [...] with me. documented in this encounterC[facility]03-15-2024 Miscellaneous Notes* Telephone Encounter - Mrata Palacio MA - 06/05/2023 10:06 AM EDT [...] calls them. documented in this encounterC[facility]03-14-2024 Miscellaneous Notes* Telephone Encounter - Hortencia Winston RN - 06/04/2023 8:[address] Bell has left messages for the patient to call back regarding a critical lab. documented in this encounterCleveland Clinic [facility]03-14-2024 Miscellaneous Notes* Telephone Encounter - Minda [...] Halina Alfaro LPN * Telephone Encounter - Jnena Fitzpatrick APRN.CNP - 06/04/2023 11:37 AM EDT [...] Fitzpatrick APRN.SHEMAR documented in this encounterC[facility]03-13-2024 Miscellaneous Notes* Telephone Encounter - Coretta Jalloh RPh - 06/03/2023 3:22 PM EDT [facility] Ambulatory Pharmacy Anticoagulation Clinic Anticoagulation Episode Summary Anticoagulation Care Providers Provider Role Specialty Phone number Stas Mora MD Referring Family Medicine [phone] Roby Flores is a 87 year old [...] Pharmacy Anticoagulation Clinic Pharmacy Anticoagulation Clinic Pager: [phone]. documented in this encounterC[facility]03-11-2024 History of Present illness Narrative* Stas [...] Coronary atherosclerosis of unspecified type of vessel, quinault or graft Coronary artery disease Other and [...] unspecified vessel or lesion type, unspecified whether quinault or transplanted heart - ICD9: 414.00, ICD10: [...] Past Histories independently gathered by the clinical youth support worker and the remaining scribed note [...] Palacio MA documented in this encounterC[facility]03-[facility]-2024 Miscellaneous Notes* Telephone Encounter - Coretta Jalloh [facility] - 05/27/2023 2:23 PM EST [facility] Ambulatory Pharmacy Anticoagulation Clinic Anticoagulation Episode Summary Anticoagulation Care Providers Provider Role Specialty Phone number Stas Mora MD Referring [facility] [phone] Roby Flores is a 87 year old year old male patient being evaluated today for a [facility] Anticoagulation Clinic Anticoagulation Episode Summary Anticoagulation Care Providers Provider Role Specialty Phone number Stas Mora MD Referring Family [facility] [phone] Roby Flores is a 87 year old [...] Pharmacy Anticoagulation Clinic Pharmacy Anticoagulation Clinic Pager: [phone]. documented in this encounterC[facility]02-28-2024 Miscellaneous Notes* Telephone Encounter - Coretta Jalloh RPh - 05/20/2023 2:36 PM EST [facility] Ambulatory Pharmacy Anticoagulation Clinic Anticoagulation Episode Summary Anticoagulation Care Providers Provider Role Specialty Phone number Stas Mora MD Referring Family Medicine [phone] Roby Flores is a 87 year old [...] Pharmacy Anticoagulation Clinic Pharmacy Anticoagulation Clinic Pager: [phone]. 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 documented in this encounterCleveland [id number] Miscellaneous Notes* Telephone Encounter - Coretta Jalloh, [facility] - 04/29/2023 4:00 PM EST [facility] Ambulatory Pharmacy Anticoagulation Clinic Anticoagulation Episode Summary Anticoagulation Care Providers Provider Role Specialty Phone number Stas Mora MD Referring Family Medicine [phone] Roby Flores is a 87 year old [...] Pharmacy Anticoagulation Clinic Pharmacy Anticoagulation Clinic Pager: [phone]. 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 Elise Paredes [facility] Clinical Pharmacist, Pharmacy Anticoagulation Clinic Pharmacy Anticoagulation Clinic Pager: [phone]. documented in this encounterC[facility]11-28-2023 Miscellaneous Notes* Telephone Encounter - Franca [...] Mora MD documented in this encounterCleveland Clinic [facility]11-28-2023 History of Present illness Narrative* Janelle [...] 7:43 AM documented in this encounterCleveland Clinic [facility]11-27-2023 History of Present illness Narrative* Stas Mora MD - 02/16/2023 2:00 PM EST Chief Complaint Patient presents with: ED Follow-up HPI Roby Flores is a 87 year old male who presents here today for ER Follow Up.. Pt went to the [facility] ER on 02/10/23 with c/o fatigue, [...] Recheck in 1 week. Below copied from [employer]: Chief Complaint: Fatigue Informant: patient Onset/Context/Timing Onset: [...] Coronary atherosclerosis of unspecified type of vessel, quinault or graft Coronary artery disease Other and [...] Completed Pneumococcal Vaccine: 65+ Completed Data reviewed [facility] ER reports 02/10/23 ASSESSMENT/PLAN: 1. Cerebral [...] Past Histories independently gathered by the clinical youth support worker and the remaining scribed note [...] Palacio Ma documented in this encounterCleveland [facility]11-24-2023 Miscellaneous Notes* Telephone Encounter - Elise Paredes, [facility] - 02/13/2023 3:56 PM EST [facility] Ambulatory Pharmacy Anticoagulation Clinic Anticoagulation Episode Summary Anticoagulation Care Providers Provider Role Specialty Phone number Stas Mora MD Referring Family Medicine [phone] Roby Flores is a 87 year old [...] INR check scheduled on 02/20/2023 Elise Paredes [facility] Clinical Pharmacist, Pharmacy Anticoagulation Clinic Pharmacy Anticoagulation Clinic Pager: [phone]. 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 Senia Phillips [facility] Clinical Pharmacist, Pharmacy Anticoagulation Clinic Pharmacy Anticoagulation Clinic Pager: [phone]. documented in this encounterC[facility]09-01-2023 Miscellaneous Notes* Telephone Encounter - Jeimy Duong RPh - 11/21/2022 2:38 PM EDT [facility] Anticoagulation Episode Summary Anticoagulation Care Providers Provider Role Specialty Phone number Stas Mora MD Referring Family Medicine [phone] Roby Flores is a 87 year old [...] Pharmacy Anticoagulation Clinic Pharmacy Anticoagulation Clinic Pager: [phone]. documented in this encounterCleveland Clinic [facility]08-28-2023 Hospital Discharge instructions Patient Education 11/17/2022 [...] Wound changes colors Numbness around the wound 5787-3685 [employer]. [address] [place] [address], [place] [address]. All rights reserved. This information is not [...] the ears or bruising around the eyes 4872-4850 [employer] [address] [place] [address]. All rights reserved. This information is not intended as a substitute for professional medical care. Always follow yourhealthcare professional's instructions. Follow Up Care 11/17/2022 15:05:08 With:Call Physician Referral Address:Unknown When:2-4 days [facility] 08-28-2023 Note Discharge Instructions Thank you for allowing [facility] to assist you with your healthcare needs. [...] Wound changes colors Numbness around the wound 0342-1451 [employer] [address] [place] [address]. All rights reserved. This information is not [...] the ears or bruising around the eyes 6136-0518 [employer] [address] [facility], [place] [address]. All rights reserved. This information is not intended as a substitute for professional medical care. Always follow yourhealthcare professional's instructions. Additional Information VACCINATE! IT SAVES LIVES! Members of the community who have not yet received the COVID-19 vaccine and would like to receive it can visit one of [facility] vaccine clinics. There are many vaccine clinic locations within the [facility]. For locations and available times, please visit [email or web address].gov/. It is important to note that some COVID mobile vaccine clinics are held outdoors and may be canceled in rainy or stormy conditions. To learn more about pediatric vaccinations (ages 5-11), we invite you to visit the [facility] webpage. [email or web address]/[email or web address] learn more about the COVID-19 vaccine, we invite you to visit the CDC website for a list of frequently asked questions. https://www.cdc.gov/coronavirus/2019-ncov/vaccines/faq.html [employer] Patient Portal Access Instructions: Stay connected with your healthcare team and access your personal medical information anytime with the [facility] Patient Portal. If you would like a full copy of your medical records please contact the [facility] Medical Records Department Thursday through Thursday between 8a.m. and 4:30p.m. Please follow the directions below to access the portal: 1.Access the email account you provided upon registration to the hospital.2.Look for an invitation email from [facility].3.Open the email and access the invitation link: Accept Invitation to [facility].Fill in the required العلي to create your account. Sign into [email or web address] with your username and password that you [...] you will allow to register on the [facility] Patient Portal for access to your information. You can also access the [employer] Patient Portal on the Envoy jonathon. Simply click on Health Records under [facility] and then click on the [facility] logo. HOW TO SAFELY DISPOSE OF PRESCRIPTION [...] Call your local pharmacy or go to [email or web address] to find one close to you.3.Make use of household items: Use cat litter or old coffee grounds to dispose medications if other options arenot available. Mix your drugs with these household products, seal them in an airtight container andthrow it into the garbage. Call [facility]: [phone] to be sure your drugs can be [...] aware that I should contact my doctor. 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: Date/Time: Relationship to Patient: Witness Name/Signature: Date/Time: [facility]08-28-2023 Note ORIGINAL EXAMINATION: CT OF THE [...] Date: 11/17/2022 4:26:20 PM Ordering Provider: STERLING [facility]08-18-2023 Miscellaneous Notes* Telephone Encounter - Senia Phillips [facility] - 11/07/2022 3:22 PM EDT [facility] Anticoagulation Episode Summary Anticoagulation Care Providers Provider Role Specialty Phone number Stas Mora MD Referring Family Medicine [phone] Roby Flores is a 87 year old [...] ALLERGIES No Known Allergies 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 documented in this encounterCleveland Clinic [facility]08-11-2023 Miscellaneous Notes* Telephone Encounter - Senia Phillips RPh - 10/31/2022 2:29 PM EDT Patient due to test INR today. Will continue to monitor for results. 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 documented in this encounterCleveland Clinic [facility] Hospital07-28-2023 Miscellaneous Notes* Telephone Encounter - Jason [...] call from today by the [facility]. They spoke with pt at [phone] and gave pt instructions on what to do. 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 Yomi Wills [facility] Clinical Pharmacist, Pharmacy Anticoagulation Clinic Pharmacy Anticoagulation Clinic Pager: [phone]. documented in this encounterCleveland Clinic [facility] Hospital07-07-2023 Miscellaneous Notes* Telephone Encounter - Jeimy JangEnrique arreola - 09/26/2022 2:11 PM EDT [facility] Anticoagulation Episode Summary Anticoagulation Care Providers Provider Role Specialty Phone number Stas Mora MD Referring Family Medicine [phone] Roby Flores is a 87 year old [...] Pharmacy Anticoagulation Clinic Pharmacy Anticoagulation Clinic Pager: [phone]. documented in this encounterCleveland Clinic [facility] Hospital06-23-2023 Miscellaneous Notes* Telephone Encounter - Jeimy Duong RPh - 09/12/2022 2:50 PM EDT [facility] Anticoagulation Episode Summary Anticoagulation Care Providers Provider Role Specialty Phone number Stas Mora MD Referring Family Medicine [phone] Roby Flores is a 87 year old [...] accidental over dosage, changes in warfarin tablet color/shape/label printer, eating less green vegetables, recent illness/fever/nausea/vomiting/diarrhea, increased [...] Pharmacy Anticoagulation Clinic Pharmacy Anticoagulation Clinic Pager: [phone]. documented in this encounterCleveland Clinic [facility] Hospital06-06-2023 Instructions* Patient Instructions* Marta Palacio Ma - 08/26/2022 1:36 PM EDT Please check your medications when you get home and make sure that your medications match our list. documented in this encounterCleveland Clinic Fairview Hospital06-06-2023 History of Present illness Narrative* Stas Mora MD - 08/26/2022 1:20 PM EDT Medical B eligibilty date 1999 Date of last exam 09/05/2021 PAST MEDICAL HISTORY Diagnosis Date Coronary atherosclerosis of unspecified type of vessel, quinault or graft Coronary artery disease Other and [...] Past Histories independently gathered by the clinical youth support worker and the remaining scribed note accurately describes my personal service to the patient. Stas Mora MD The documentation for this note was completed by Marta Palacio Ma acting as scribe for Stas Mora MD. August 26, 2022 1:17 PM. Marta Palacio Ma documented in this encounterCleveland Clinic [facility] Hospital06-02-2023 Miscellaneous Notes* Telephone Encounter - Senia Phillips [facility] - 08/22/2022 2:50 PM EDT [facility] Clinic Anticoagulation Episode Summary Anticoagulation Care Providers Provider Role Specialty Phone number Stas Mora MD Referring Family Medicine [phone] Roby Flores is a 87 year old [...] Fri; 2.5 mg all other days Sent Calendargod message Advised patient to continue current weekly dose as noted above Next lab INR check scheduled on 08/29/2022 Senia Phillips RPh Clinical Pharmacist, Pharmacy Anticoagulation Clinic Pharmacy Anticoagulation Clinic Pager: [phone]. documented in this encounterCleveland Clinic [facility] Hospital04-28-2023 Miscellaneous Notes* Telephone Encounter - Senia Phillips RPh - 07/18/2022 3:29 PM EDT [facility] Anticoagulation Episode Summary Anticoagulation Care Providers Provider Role Specialty Phone number Stas Mora MD Referring Family Medicine [phone] Roby Flores is a 86 year old [...] warfarin instructions: 2.5 mg every day Sent Calendargod message Advised patient to continue current weekly dose as noted above Next lab INR check scheduled on 08/01/2022 Senia Phillips [facility] Clinical Pharmacist, Pharmacy Anticoagulation Clinic Pharmacy Anticoagulation Clinic Pager: [phone]. 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 documented in this encounterCleveland Clinic [facility] Hospital04-03-2023 Miscellaneous Notes* Telephone Encounter - Elvis Kearney APRN.HIGHER LEVEL TEACHING ASSISTANT - 06/23/2022 10:17 AM EDT The following approved medication requests have been transmitted electronically. Requested Prescriptions Pending Prescriptions Disp Refills warfarin (COUMADIN) 2.5 mg tablet [Pharmacy Med Name: WARFARIN SODIUM 2.5 MG TABLET] 135 tablet 3 Sig: TAKE 5 MG EVERY MON, DIXIE 2.5 MG ALL OTHER DAYS Elvis Kearney APRN.HIGHER LEVEL TEACHING ASSISTANT documented in this encounterCleveland Clinic [facility] Hospital03-31-2023 Miscellaneous Notes* Telephone Encounter - Senia Phillips [facility] - 06/20/2022 4:46 PM EDT [facility] Anticoagulation Episode Summary Anticoagulation Care Providers Provider Role Specialty Phone number Stas Mora MD Referring Family Medicine [phone] Roby Flores is a 86 year old [...] ALLERGIES No Known Allergies 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 documented in this encounterCleveland Clinic [facility] Hospital03-17-2023 Miscellaneous Notes* Telephone Encounter - Senia Phillips RPh - 06/06/2022 4:18 PM EDT [facility] Anticoagulation Episode Summary Anticoagulation Care Providers Provider Role Specialty Phone number Stas Mora MD Referring Family Medicine [phone] Roby Flores is a 86 year old [...] warfarin instructions: 2.5 mg every day Sent Calendargod message Advised patient to continue current weekly dose as noted above Next lab INR check scheduled on 06/20/2022 Senia Phillips RPh Clinical Pharmacist, Pharmacy Anticoagulation Clinic Pharmacy Anticoagulation Clinic Pager: [phone]. documented in this encounterCleveland Clinic [facility] Hospital03-10-2023 Miscellaneous Notes* Telephone Encounter - Neeru Rice LPN - 05/30/2022 3:02 PM EST Pharmacists manage INR documented in this encounterCleveland Clinic [facility]view Hospital03-02-2023 Miscellaneous Notes* Telephone Encounter - Halina Alfaro LPN - 05/22/2022 8:51 AM EST Patient notified spouse of results, verbalizes understanding of instructions. She will tell Pt. Halina Alfaro LPN * Telephone Encounter - Jenna Fitzpatrick APRN.HIGHER LEVEL TEACHING ASSISTANT - 05/22/2022 7:15 AM EST Can you [...] you. Jenna Fitzpatrick APRN.CNP documented in this encounterCleveland Clinic [facility] Hospital03-01-2023 Miscellaneous Notes* Telephone Encounter - Judy [...] hip/leg 10. : na Protocols used: Hip Ufem-[id number], Hip Pdmwoc-[id number]-FP documented in this encounterCleveland Clinic [facility] Hospital03-01-2023 Miscellaneous Notes* Telephone Encounter - Fani Grace RN - 05/21/2022 12:22 PM EST Patient disconnected during transferred, called multiple time with no answer. documented in this encounterCleveland Clinic [facility]view Hospital02-27-2023 Miscellaneous Notes* Telephone Encounter - Paige [...] Cohen LPN documented in this encounterCleveland Clinic [facility]view Hospital02-24-2023 Miscellaneous Notes* Telephone Encounter - Senia Phillips RPh - 05/16/2022 5:10 PM EST Patient due to test INR today. Will continue to monitor for results. Senia Phillips RPh documented in this encounterCleveland Clinic [facility] Hospital02-10-2023 Miscellaneous Notes* Telephone Encounter - Senia Phillips RPh - 05/02/2022 3:06 PM EST [facility] Anticoagulation Episode Summary Anticoagulation Care Providers Provider Role Specialty Phone number Stas Mora MD Referring Family Medicine [phone] Roby Flores is a 86 year old year old male patient being evaluated today for a Telemanagement visit. Patient is currently on the following anticoagulant(s) Warfarin. Labs PT INR (no units) Date Value 05/15/2021 2.3 04/17/2021 1.9 03/13/2021 Test sent to [facility]. INR (no units) Date Value 05/02/2022 [...] warfarin instructions: 2.5 mg every day Sent Calendargod message Advised patient to continue current weekly dose as noted above Next lab INR check scheduled on 05/16/2022 Senia Phillips RPh Clinical Pharmacist, Pharmacy Anticoagulation Clinic Pharmacy Anticoagulation Clinic Pager: [phone]. documented in this encounterCleveland Clinic [facility] Hospital01-27-2023 Miscellaneous Notes* Telephone Encounter - Senia Phillips RPh - 04/18/2022 4:25 PM EST [facility] Anticoagulation Episode Summary Anticoagulation Care Providers Provider Role Specialty Phone number Stas Mora MD Referring Family Medicine [phone] Roby Flores is a 86 year old year old male patient being evaluated today for a Telemanagement visit. Patient is currently on the following anticoagulant(s) Warfarin. Labs PT INR (no units) Date Value 05/15/2021 2.3 04/17/2021 1.9 03/13/2021 Test sent to [facility]. 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 documented in this encounterCleveland Clinic [facility] Hospital01-13-2023 Miscellaneous Notes* Telephone Encounter - Elise Paredes RPh - 04/04/2022 4:09 PM EST [facility] Anticoagulation Episode Summary Anticoagulation Care Providers Provider Role Specialty Phone number Stas Mora MD Referring Family Medicine [phone] Roby Flores is a 86 year old year old male patient being evaluated today for a Lab INR. Patient is currently on the following anticoagulant(s) Warfarin. Labs PT INR (no units) Date Value 05/15/2021 2.3 04/17/2021 1.9 03/13/2021 Test sent to [facility]. 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 documented in this encounterCleveland Clinic [facility] Hospital01-09-2023 Miscellaneous Notes* Telephone Encounter - Rosie Cruz Ma - 03/31/2022 5:12 PM EST [facility] and Imm. PerPCP okay to fax back requested records. Faxed back to [facility] at F#: [phone]. Rosie Cruz Ma documented in this encounterCleveland Clinic [facility]view Hospital12-30-2022 Miscellaneous Notes* Telephone Encounter - Carmelina Cruz [facility] - 03/21/2022 4:05 PM EST [facility] Clinic Anticoagulation Episode Summary Anticoagulation Care Providers Provider Role Specialty Phone number Stas Mora MD Referring Family Medicine [phone] Roby Flores is a 86 year old year old male patient being evaluated today for a Telemanagement visit. Patient is currently on the following anticoagulant(s) Warfarin. Labs PT INR (no units) Date Value 05/15/2021 2.3 04/17/2021 1.9 03/13/2021 Test sent to [facility]. INR (no units) Date Value 03/21/2022 [...] 2.5 mg every day; Starting 03/21/2022 Sent Calendargod message Advised patient to continue current weekly dose as noted above Next home INR check scheduled on 04/04/2022 Carmelina Cruz RPh Clinical Pharmacist, Pharmacy Anticoagulation Clinic Pharmacy Anticoagulation Clinic Pager: [phone]. * Telephone Encounter - Carmelina Cruz RPh - 03/21/2022 3:12 PM EST Patient due to test INR today. Will continue to monitor for results. Carmelina Cruz RPh documented in this encounterCleveland Clinic [facility]view Hospital12-02-2022 Miscellaneous Notes* Telephone Encounter - Oliva [...] wanted to. documented in this encounterCleveland Clinic Fairview Hospital10-31-2022 Miscellaneous Notes* Telephone Encounter - Paige Hickman RPh - 01/20/2022 3:55 PM EDT [facility] An[facility] Clinic Anticoagulation Episode Summary Anticoagulation Care Providers Provider Role Specialty Phone number Stas Mora MD Referring Family Medicine [phone] Roby Flores is a 86 year old year old male patient being evaluated today for a Telemanagement visit. Patient is currently on the following anticoagulant(s) Warfarin. Labs PT INR (no units) Date Value 05/15/2021 2.3 04/17/2021 1.9 03/13/2021 Test sent to [facility]. INR (no units) Date Value 01/20/2022 [...] instructed to call [facility] at [phone] with any questionsor concerns. Paige Hickman RPh Clinical Pharmacist, Pharmacy Anticoagulation Clinic Pharmacy Anticoagulation Clinic Pager: [phone] documented in this encounterCleveland Clinic [facility] Hospital10-28-2022 Miscellaneous Notes* Telephone Encounter - Senia [...] the providers message. Sent information as a Nutriniat message as well. Elana Valdes RN * [...] to contact patient with no answer at [phone]. Current dose of coumadin is: 2.5 mg every day . Previous INR (date and result): 01/03/22 2.4 documented in this encounterCleveland Clinic [facility] Hospital10-24-2022 Miscellaneous Notes* Telephone Encounter - Jenna [...] Mckenna LPN documented in this encounterCleveland Clinic Fairview Hospital10-14-2022 Miscellaneous Notes* Telephone Encounter - Senia Phillips RP - 01/03/2022 4:11 PM EDT [facility] Clinic Anticoagulation Episode Summary Anticoagulation Care Providers Provider Role Specialty Phone number Stas Mora MD Referring Family Medicine [phone] Roby Flores is a 86 year old year old male patient being evaluated today for a Telemanagement visit. Patient is currently on the following anticoagulant(s) Warfarin. Labs PT INR (no units) Date Value 05/15/2021 2.3 04/17/2021 1.9 03/13/2021 Test sent to [facility]. INR (no units) Date Value 01/03/2022 [...] warfarin instructions: 2.5 mg every day Sent Calendargod message Advised patient to continue current weekly dose as noted above Next lab INR check scheduled on 01/17/2022 Senia Phillips RPh Clinical Pharmacist, Pharmacy Anticoagulation Clinic Pharmacy Anticoagulation Clinic Pager: [phone]. documented in this encounterCleveland Clinic [facility] Hospital10-14-2022 Miscellaneous Notes* Telephone Encounter - Marta Palacio Ma - 01/03/2022 10:49 AM EDT Pt notified of results via Calendargod. Marta Palacio Ma * Telephone Encounter - Stas Mora MD - 01/02/2022 6:07 PM EDT Please notify patient that his thyroid ultrasound looks OK, the nodules are all small, appear normal, and do not need any further evaluation pr follow up. Stas Mora MD documented in this encounterCleveland Clinic Fairview Hospital10-06-2022 History of Present illness Narrative* Stas [...] about 1-2 hours. Pt was admitted to [facility] ER 12/21/21 with stroke sx however [...] in the last year. Below copied from [facility]: HPI History of Present Illness Chief [...] extremities. 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 Dorsi and plantar flexion intact. [...] Chronic anticoagulation: Status: Acute Code(s): Z79.01 - 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 (current) use of anticoagulants Medications at Discharge [...] symptoms resolved. Hospital Course: 1. TIA/paroxysmal A. [id number] male presented with right-sided weakness and aphasia, [...] Coronary atherosclerosis of unspecified type of vessel, quinault or graft Coronary artery disease Other and [...] 12/06/2024 ADVANCE DIRECTIVE DISCUSSION Completed Data reviewed [facility] reports from 10/21/21-10/22/21 ASSESSMENT/PLAN: 1. Hospital [...] unspecified vessel or lesion type, unspecified whether quinault or transplanted heart - ICD9: 414.00, ICD10: I25.10 Continue current medications. Follow up in Dec as scheduled with fasting labs prior. I agree with the Chief Complaint, ROS, and Past Histories independently gathered by the clinical youth support worker and the remaining scribed note [...] Palacio Ma documented in this encounterC[facility]22 Miscellaneous Notes* Telephone Encounter - Senia Alan [facility] - 12/20/2021 4:39 PM EDT [facility] Anticoagulation Episode Summary Anticoagulation Care Providers Provider Role Specialty Phone number Stas Mora MD Referring Family Medicine [phone] Roby Flores is a 86 year old year old male patient being evaluated today for a Telemanagement visit. Patient is currently on the following anticoagulant(s) Warfarin. Labs PT INR (no units) Date Value 05/15/2021 2.3 04/17/2021 1.9 03/13/2021 Test sent to [facility]. 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 documented in this encounterCleveland [facility]09-16-2022 Miscellaneous Notes* Telephone Encounter - Senia Phillips RPh - 12/06/2021 4:29 PM EDT [facility] Anticoagulation Episode Summary Anticoagulation Care Providers Provider Role Specialty Phone number Stas Mora MD Referring [facility] [phone] Roby Flores is a 86 year old year old male patient being evaluated today for a Telemanagement visit. Patient is currently on the following anticoagulant(s) Warfarin. Labs PT INR (no units) Date Value 05/15/2021 2.3 04/17/2021 1.9 03/13/2021 Test sent to [facility]. INR (no units) Date Value 12/06/2021 [...] Pharmacy Anticoagulation Clinic Pharmacy Anticoagulation Clinic Pager: [phone]. documented in this encounterCleveland [facility]09-02-2022 Miscellaneous Notes* Telephone Encounter - Janice Huang RPh - 11/22/2021 5:17 PM EDT [facility] Anticoagulation Episode Summary Anticoagulation Care Providers Provider Role Specialty Phone number Stas Mora MD Referring [facility] [phone] Roby Flores is a 86 year old year old male patient being evaluated today for a Telemanagement visit. Patient is currently on the following anticoagulant(s) Warfarin. Labs PT INR (no units) Date Value 05/15/2021 2.3 04/17/2021 1.9 03/13/2021 Test sent to [facility]. INR (no units) Date Value 11/22/2021 [...] Advised pt to Call Coumadin Clinic at [phone] to confirm dosing and follow-up Janice Huang RPh Clinical Pharmacist, Pharmacy Anticoagulation Clinic Pharmacy Anticoagulation Clinic Pager: [phone]. documented in this encounterCleveland Clinic [facility]08-19-2022 Miscellaneous Notes* Telephone Encounter - Senia Phillips RPh - 11/08/2021 5:01 PM EDT [facility] Anticoagulation Episode Summary Anticoagulation Care Providers Provider Role Specialty Phone number Stas Mora MD Referring [facility] [phone] Roby Flores is a 86 year old year old male patient being evaluated today for a Telemanagement visit. Patient is currently on the following anticoagulant(s) Warfarin. Labs PT INR (no units) Date Value 05/15/2021 2.3 04/17/2021 1.9 03/13/2021 Test sent to [facility]. INR (no units) Date Value 11/08/2021 [...] warfarin instructions: 2.5 mg every day Sent Cal[employer]od message Advised patient to continue current weekly dose as noted above Next lab INR check scheduled on 11/22/2021 Senia Phillips RPh Clinical Pharmacist, Pharmacy Anticoagulation Clinic Pharmacy Anticoagulation Clinic Pager: [phone]. documented in this encounterCleveland Clinic [facility]08-05-2022 Miscellaneous Notes* Telephone Encounter - Janice Enrique Huang - 10/25/2021 4:16 PM EDT [facility] Anticoagulation Episode Summary Anticoagulation Care Providers Provider Role Specialty Phone number Stas Mora MD Referring [facility] [phone] Roby Flores is a 86 year old year old male patient being evaluated today for a Telemanagement visit. Patient is currently on the following anticoagulant(s) Warfarin. Labs PT INR (no units) Date Value 05/15/2021 2.3 04/17/2021 1.9 03/13/2021 Test sent to [facility]. 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 documented in this encounterCleveland Clinic [facility]07-08-2022 Miscellaneous Notes* Telephone Encounter - Elana Campbell ([place]) - 09/27/2021 4:50 PM EDT PATIENT CALL Patient called call center regarding results. Patient called and stated he had his INR checked today (09/27) and it was 2.3. Patient can be called at [phone] with any questions or sent MC message if result is within range. PT INR (no units) Date Value 05/15/2021 2.3 04/17/2021 1.9 03/13/2021 Test sent to [facility]. INR (no units) Date Value 09/27/2021 2.3 09/13/2021 2.7 08/30/2021 2.1 Elana Campbell ([place]) * Telephone Encounter - Yomi Wills RPh - 09/27/2021 6:28 AM EDT Patient due to test INR today. Will continue to monitor for results. Yomi Wills RPh documented in this encounterCleveland Clinic [facility] Hospital06-24-2022 Miscellaneous Notes* Telephone Encounter - Senia Phillips RPh - 09/13/2021 4:11 PM EDT [facility] Anticoagulation Episode Summary Anticoagulation Care Providers Provider Role Specialty Phone number Stas Mora MD Referring [facility] [phone] Roby Flores is a 86 year old year old male patient being evaluated today for a Telemanagement visit. Patient is currently on the following anticoagulant(s) Warfarin. Labs PT INR (no units) Date Value 05/15/2021 2.3 04/17/2021 1.9 03/13/2021 Test sent to [facility]. INR (no units) Date Value 09/13/2021 [...] result of 2.7 is therapeutic Plan: Sent Calend[employer]od message Advised patient to continue current weekly dose Next lab INR check scheduled on 09/27/2021 Senia Phillips RPh Clinical Pharmacist, Pharmacy Anticoagulation Clinic Pharmacy Anticoagulation Clinic Pager: [phone] . documented in this encounterCleveland Clinic [facility]06-16-2022 History of Present illness Narrative* Stas Mora MD - 09/05/2021 11:20 AM EDT Medical B eligibilty date 1999 Date of last exam 08/28/2020 PAST MEDICAL HISTORY Diagnosis Date Coronary atherosclerosis of unspecified type of vessel, quinault or graft Coronary artery disease Other and [...] [place] every 6 [place]. Pt follows with [facility] for Coumadin management. Pt [...] to remember the following three words: Banana, [place] and Chair Visuospatial/Executive Functioning: Clock drawin/2 (Normal [...] Past Histories independently gathered by the clinical youth support worker and the remaining scribed note accurately describes my personal service to the patient. Stas Mora MD The documentation for this note was completed by Rosie Cruz Ma acting as scribe for Stas Mora MD. September 05, 2021 11:33 AM. Rosie Cruz Ma documented in this encounterCleveland [phone] Miscellaneous Notes* Telephone Encounter - Senia Phillips RPh - 08/30/2021 5:10 PM EDT [facility] Anticoagulation Episode Summary Anticoagulation Care Providers Provider Role Specialty Phone number Stas Mora MD Referring [facility] [phone] Roby Flores is a 86 year old year old male patient being evaluated today for a Telemanagement visit. Patient is currently on the following anticoagulant(s) Warfarin. Labs PT INR (no units) Date Value 05/15/2021 2.3 04/17/2021 1.9 03/13/2021 Test sent to [facility]. INR (no units) Date Value 08/30/2021 [...] result of 2.1 is therapeutic Plan: Sent [employer] message Advised patient to continue current weekly dose Next lab INR check scheduled on 09/13/2021 Senia Phillips RPh Clinical Pharmacist, Pharmacy Anticoagulation Clinic Pharmacy Anticoagulation Clinic Pager: [phone] . documented in this encounterCleveland Clinic [facility]06-10-2022 Miscellaneous Notes* Telephone Encounter - Jenna Fitzpatrick APRN.CNP - 08/30/2021 8:56 AM EDT Needs order for PT/INR, order signed. Jenna Fitzpatrick APRN.CNP documented in this encounterCleveland Clinic [facility] Hospital05-27-2022 Miscellaneous Notes* Telephone Encounter - Rosie Cruz Ma - 08/16/2021 2:18 PM EDT INR has been reviewed in another encounter. Rosie Cruz Ma documented in this encounterCleveland Clinic [facility]05-13-2022 Miscellaneous Notes* Telephone Encounter - Senia Phillips RP - 08/02/2021 4:11 PM EDT [facility] Clinic Anticoagulation Episode Summary Anticoagulation Care Providers Provider Role Specialty Phone number Stas Mora MD Referring [facility] [phone] Roby Flores is a 85 year old year old male patient being evaluated today for a Telemanagement visit. Patient is currently on the following anticoagulant(s) Warfarin. Labs PT INR (no units) Date Value 05/15/2021 2.3 04/17/2021 1.9 03/13/2021 Test sent to [facility]. INR (no units) Date Value 08/02/2021 [...] Pharmacy Anticoagulation Clinic Pharmacy Anticoagulation Clinic Pager: [phone] . documented in this encounterCleveland Clinic [facility]04-27-2022 Miscellaneous Notes* Telephone Encounter - Rosie [...] Mora MD documented in this encounterCleveland Clinic [facility]04-25-2022 Miscellaneous Notes* Telephone Encounter - Elvis Kearney APRN.CNP - 07/15/2021 12:39 PM EDT The following approved medication requests have been transmitted electronically. Pending Prescriptions Disp Refills WARFARIN 2.5 MG TABLET 135 tablet 3 Sig: TAKE 5 MG EVERY MON, DIXIE 2.5 MG ALL OTHER DAYS MESFIN: No Elvis Kearney APRN.CNP documented in this encounterCleveland Clinic [facility]04-18-2022 History of Present illness Narrative* Stas [...] SOB. No swelling in feet orankles. No human resource adviser. Taking Fosinopril 10 mg daily. Lipid: Taking [...] Coronary atherosclerosis of unspecified type of vessel, quinault or graft Coronary artery disease Other and [...] unspecified vessel or lesion type, unspecified whether quinault or transplanted heart - ICD9: 414.00, ICD10: [...] Past Histories independently gathered by the clinical youth support worker and the remaining scribed note [...] Palacio Ma documented in this encounterCleveland Clinic [facility]04-13-2022 Miscellaneous Notes* Telephone Encounter - Coretta Jalloh, [facility] - 07/03/2021 3:40 PM EDT [facility] Clinic Anticoagulation Episode Summary Anticoagulation Care Providers Provider Role Specialty Phone number Stas Mora MD Referring [facility] [phone] Roby Flores is a 85 year old year old male patient being evaluated today for a Lab INR. Patient is currently on the following anticoagulant(s) Warfarin. Labs PT INR (no units) Date Value 05/15/2021 2.3 04/17/2021 1.9 03/13/2021 Test sent to [facility]. INR (no units) Date Value 07/03/2021 4.5 06/12/2021 3.5 Creatinine (mg/dL) Date Value 03/13/2021 0.80 08/28/2020 0.83 Bilirubin, Total (mg/dL) Date Value 03/13/2021 0.5 ALT (U/L) Date Value 03/13/2021 24 AST (U/L) Date Value 03/13/2021 24 CrCl cannot be calculated (Unknown ideal weight.). 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 Plan: Called and spoke to patient/caregiver Advised patient to hold 1 dose then decrease current regimen Next lab INR check scheduled on or by 07/17. Patient verbalizes understanding of the plan. Patient denies need for refills. Coretta Jalloh RPh Clinical Pharmacist, Pharmacy Anticoagulation Clinic Pharmacy Anticoagulation Clinic Pager: [phone] . * Telephone Encounter - Marta Palacio Ma - 07/03/2021 3:05 PM EDT INR 4.5. Results routed to pharmacist who Handles pt coumadin. Marta Palacio Ma documented in this encounterCleveland Clinic [facility]03-23-2022 Miscellaneous Notes* Telephone Encounter - Coretta Jalolh RPh - 06/12/2021 3:20 PM EDT [facility] An[facility] Clinic Anticoagulation Episode Summary Anticoagulation Care Providers Provider Role Specialty Phone number Stas Mora MD Referring [facility] [phone] Roby Flores is a 85 year old year old male patient being evaluated today for a Lab INR. Patient is currently on the following anticoagulant(s) Warfarin. Labs PT INR (no units) Date Value 05/15/2021 2.3 04/17/2021 1.9 03/13/2021 Test sent to [facility]. INR (no units) Date Value 06/12/2021 3.5 Creatinine (mg/dL) Date Value 03/13/2021 0.80 08/28/2020 0.83 Bilirubin, Total (mg/dL) Date Value 03/13/2021 0.5 ALT (U/L) Date Value 03/13/2021 24 AST (U/L) Date Value 03/13/2021 24 CrCl cannot be calculated (Unknown ideal weight.). 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 Patient verbalizes understanding of the plan. Patient denies need for refills. Coretta Jalloh RPh Clinical Pharmacist, Pharmacy Anticoagulation Clinic Pharmacy Anticoagulation Clinic Pager: [phone] . * Telephone Encounter - Rosie Cruz Ma - 06/12/2021 3:08 PM EDT Pt's INR results have finalized. Routing to pharm to review and advise. Rosie Cruz Ma documented in this encounterCleveland Clinic [facility]12-21-2020 History of Present illness Narrative* Hussein [...] 5:01 PM documented in this encounterCleveland Clinic Fairview HospitalDischarge summary Author Inderjit Gillespie [facility] Note Date/Time September 01, 2024 10:2 5am [facility] Medical Records Department [address] [place] [address] Emergency Department Summary 06/12/25 MR#: [id number] Acct: [id number] Name: ROBY FLORES Rep #:[id number] : [...] shoulders elbows and wrist. 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 Neurologically he is awake alert. Answering [...] 87.5 H Lymph % (Auto) 4.8 L [place] % (Auto) 5.7 Eos % (Auto) 1.2 [...] Clarity Clear Urine pH 8.0 Ur Specific [place] 1.010 Urine Protein 15 H Urine Glucose [...] fracture or dislocation present. Reading Location: [facility]--[address] 09/01/24 09:05 IMPRESSION: Cerebral atrophy. Mucosal thickening of the ethmoid sinuses as well as opacification of the left maxillary sinus. Reading Location: [facility]--1 Chest X-Ray 09/01/24 09:25 IMPRESSION: No acute abnormality is seen. Reading Location: [facility]--1 Chest x-ray, 2 views, AP and lateral, [...] failure to thrive Disposition Disposition: Acute Care [facility] What to do if you have Problems For any increased pain, shortness of breath, bleeding, nausea or vomiting, chestpain, or any unexpected problems, contact your Primary Care Provider. Call [employer] [facility] ([phone]) or report to the closest Emergency Room. Call 911 if necessary. 09/01/24 1025 <Electronically signed by Inderjit Gillespie MD> Cosigner Signature (if applicable): CC: Dr. Stas Mora MD ~ Signed [facility] Work Phone: Evaluation + Plan note No data available for this section [facility] Evaluation note* Diagnosis jail current use of anticoagulant- Primary Long-term (current) use of anticoagulants Paroxysmal atrial fibrillation (HCC) Atrial fibrillation [facility]* Diagnosis jail current use of anticoagulant- Primary Long-term (current) use of anticoagulants Paroxysmal atrial fibrillation (HCC) Atrial fibrillation documented in this encounter [facility]* Diagnosis Essential hypertension, benign- Primary Atherosclerosis of coronary artery without angina pectoris, unspecified vessel or lesion type, unspecified whether quinault or transplanted heart Paroxysmal atrial fibrillation (HCC) Atrial fibrillation Primary osteoarthritis of both knees Primary localized osteoarthrosis, lower leg [facility] Diagnosis Atherosclerosis of coronary artery without angina pectoris, unspecified vessel or lesion type, unspecified whether quinault or transplanted heart- Primary Essential hypertension, benign [facility] Diagnosis jail current use of anticoagulant- Primary Long-term (current) use of anticoagulants Paroxysmal atrial fibrillation (HCC) Atrial fibrillation documented in this encounter [facility]* Diagnosis Elevated INR- Primary Abnormal coagulation profile [facility] Diagnosis jail current use of anticoagulant- Primary Long-term (current) use of anticoagulants Paroxysmal atrial fibrillation (HCC) Atrial fibrillation [facility]* Diagnosis Encounter for Medicare annual wellness exam- Primary Routine general medical examination at a health care facility Paroxysmal atrial fibrillation (HCC) Atrial fibrillation Essential hypertension, benign [facility]* Diagnosis 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- Primary Long-term (current) use of anticoagulants Encounter for monitoring Coumadin therapy Encounter for therapeutic drug monitoring documented in this encounter [facility]* Diagnosis jail current use of anticoagulant- Primary Long-term (current) use of anticoagulants Paroxysmal atrial fibrillation (HCC) Atrial fibrillation documented [facility] this encounter [facility]* Diagnosis 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- Primary Long-term (current) use of anticoagulants Paroxysmal atrial fibrillation (HCC) Atrial fibrillation documented [facility] this encounter [facility] [facility]* Diagnosis Onset Date Resolution Status Chronic anticoagulation acut e TIA (transient ischemic attack) acute CAD (coronary artery disease) [facility] Work Phone: Evaluation note* Diagnosis Onset Date Resolution Status Chronic anticoagulation acut e Stroke-like symptoms acute TIA (transient ischemic attack) acute CAD (coronary artery disease) [facility] Work Phone: Evaluation note* Diagnosis Hospital discharge follow-up- Primary Other follow-up examination Encounter for immunization Need for other specified prophylactic vaccination against single bacterial disease TIA (transient ischemic attack) Unspecified transient cerebral ischemia Thyroid nodule Nontoxic uninodular goiter Essential hypertension, benign Paroxysmal atrial fibrillation (HCC) Atrial fibrillation Atherosclerosis of coronary artery without angina pectoris, unspecified vessel or lesion type, unspecified whether quinault or transplanted heart documented in this encounter [facility] [facility]* Diagnosis jail current use of anticoagulant- Primary Long-term (current) use of anticoagulants Paroxysmal atrial fibrillation (HCC) Atrial fibrillation documented [facility] this encounter [facility]* Diagnosis 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- Primary Long-term (current) use of anticoagulants Paroxysmal atrial fibrillation (HCC) Atrial fibrillation [facility]* Diagnosis jail current use of anticoagulant- Primary Long-term (current) use of anticoagulants Paroxysmal atrial fibrillation (HCC) Atrial fibrillation documented [facility] this encounter [facility]* Diagnosis Encounter for Medicare annual wellness exam- Primary Routine general medical examination at a [facility] facility Paroxysmal atrial fibrillation (HCC) Atrial fibrillation Essential hypertension, benign Hyperlipidemia, unspecified hyperlipidemia type documented in this encounter [facility]* Diagnosis jail current use of anticoagulant- Primary Long-term (current) use of anticoagulants Paroxysmal atrial fibrillation (HCC) Atrial fibrillation documented in this encounter [facility]* Diagnosis jail current use of anticoagulant- Primary Long-term (current) use of anticoagulants Paroxysmal atrial fibrillation (HCC) Atrial fibrillation documented [facility] this encounter [facility] [facility]* Diagnosis 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- Primary Long-term (current) use of anticoagulants Paroxysmal atrial fibrillation (HCC) Atrial fibrillation documented [facility] this encounter [facility]* Diagnosis 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- Primary Long-term (current) use of anticoagulants Paroxysmal atrial fibrillation (HCC) Atrial fibrillation documented in this encounter [facility] noteNo assessment information availableWLicking Memorial [facility] Work Phone: Evaluation note* Diagnosis 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- Primary Long-term (current) use of anticoagulants Paroxysmal atrial fibrillation (HCC) Atrial fibrillation [facility] [facility]* Diagnosis Cerebral infarction, unspecified mechanism (HCC)- Primary Generalized weakness Other malaise and fatigue Speech disturbance, unspecified type Hyperlipidemia, unspecified hyperlipidemia type Essential hypertension, benign Paroxysmal atrial fibrillation (HCC) Atrial [facility] Diagnosis Cerebral infarction, unspecified mechanism (HCC) [facility] Diagnosis jail current use of anticoagulant- Primary Long-term (current) use of anticoagulants Paroxysmal atrial fibrillation (HCC) Atrial fibrillation [facility] Diagnosis Essential hypertension, benign- Primary Paroxysmal atrial fibrillation (HCC) Atrial fibrillation Atherosclerosis of coronary artery without angina pectoris, unspecified vessel or lesion type, unspecified whether [place] or transplanted heart Hyperlipidemia, unspecified hyperlipidemia type History of stroke with 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 Speech disturbance, unspecified type [facility] Diagnosis Abnormal CBC- Primary Other abnormal blood chemistry [facility]* Diagnosis 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- Primary Long-term (current) use of anticoagulants Paroxysmal atrial fibrillation (HCC) Atrial [facility] Diagnosis 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- Primary Long-term (current) use of anticoagulants Paroxysmal atrial fibrillation (HCC) Atrial fibrillation [facility] Diagnosis 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- Primary Long-term (current) use of anticoagulants Paroxysmal atrial fibrillation (HCC) Atrial fibrillation [facility] Diagnosis jail current use of anticoagulant- Primary Long-term (current) use of anticoagulants Paroxysmal atrial fibrillation (HCC) Atrial fibrillation [facility] Diagnosis 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, psychotic disturbance, mood disturbance, or anxiety (HCC)- Primary Essential hypertension, benign Paroxysmal atrial fibrillation (HCC) Atrial fibrillation documented in this encounter [facility]* Diagnosis Edema of both lower legs- Primary [facility]* Diagnosis jail current use of anticoagulant- Primary Long-term (current) use of anticoagulants Paroxysmal atrial fibrillation (HCC) Atrial fibrillation [facility]* Diagnosis 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 Long-term (current) use of anticoagulants Paroxysmal atrial fibrillation (HCC) Atrial fibrillation [facility]* Diagnosis Essential [...] chemistry [facility]* Diagnosis 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- Primary Long-term (current) use of anticoagulants Paroxysmal atrial fibrillation (HCC) Atrial fibrillation [facility]* Diagnosis 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- Primary Long-term (current) use of anticoagulants Paroxysmal atrial fibrillation (HCC) Atrial fibrillation [facility]* Diagnosis Left hip pain Pain in joint, pelvic region and thigh [facility] Diagnosis 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- Primary Long-term (current) use of anticoagulants Paroxysmal atrial fibrillation (HCC) Atrial fibrillation [facility]* Diagnosis Acute right-sided low back pain, unspecified whether sciatica present [facility] Diagnosis Paroxysmal atrial fibrillation (HCC)- Primary Atrial fibrillation [facility]* Diagnosis 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- Primary Long-term (current) use of anticoagulants Paroxysmal atrial fibrillation (HCC) Atrial fibrillation [facility] Diagnosis jail current use of anticoagulant- Primary Long-term (current) use of anticoagulants Paroxysmal atrial fibrillation (HCC) Atrial fibrillation [facility]* Diagnosis Dementia, unspecified dementia severity, unspecified dementia type, unspecified whether behavioral, psychotic, or mood disturbance or anxiety (HCC)- Primary [facility]* Diagnosis jail current use of anticoagulant- Primary Long-term (current) use of anticoagulants Paroxysmal atrial fibrillation (HCC) Atrial fibrillation documented in this encounter [facility] note* Diagnosis Dementia, unspecified dementia severity, unspecified [...] and musculoskeletal systems documented in this encounter [facility] note* Diagnosis Cognitive impairment, mild, so stated Mild cognitive impairment, so stated documented in this encounter [facility] note* Diagnosis Essential hypertension, benign- Primary Hyperlipidemia, unspecified hyperlipidemia type Atherosclerosis of coronary artery without angina pectoris, unspecified vessel or lesion type, unspecified whether [place] or transplanted heart Paroxysmal atrial fibrillation (HCC) Atrial fibrillation Edema of both lower legs History of stroke with 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 Dementia, unspecified dementia severity, unspecified dementia type, unspecified whether behavioral, psychotic, or mood disturbance or anxiety (HCC) documented in this encounter [facility] note* 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) Paralysis agitans documented in this encounter [facility] note* Diagnosis Bursitis of right elbow, unspecified bursa- Primary documented in this encounter [facility] note* Diagnosis Moderate dementia without behavioral disturbance, psychotic disturbance, mood disturbance, or anxiety, unspecified dementia type (HCC)- Primary Hallucinations Screening for depression Encounter for screening examination for other mental health and behavioral disorders documented in this encounter [facility] for referral (narrative)* Diagnostic Procedure Only (Routine) - Authorized Specialty Diagnoses / Procedures Referred By Jennifer gomez Referred To Contact US IMAGING Diagnoses Thyroid nodule Procedures US THYROID/PARATHYROID US SOFT TISSUE HEAD & NECK REAL TIME IMGE Stas Queen MD [address] [place] [address] Us Imaging Referral ID Status Reason Start Date Expiration Date Visits Requested Visits Authorized [id number] Authorized Auto-Generat ed Referral 12/26/2021 01/25/2023 1 1 [facility] for referral (narrative)* Diagnostic Procedure Only (Urgent) - Closed Specialty Diagnoses / Procedures Referred By Jennifer t Referred To Contact XR IMAGING Diagnoses Left hip pain Procedures XR HIP GENERAL 3V PELV/AP/LAT LEFT RADEX HIP UNILATERAL WITH PELVIS 2-3 VIEWS Jenna Fitzpatrick APRN.HIGHER LEVEL TEACHING ASSISTANT [address] [place] [address] [place] [address] Referral ID Status Reason Start Date Expiration Date V isits Requested Visits Authorized [id number] Closed Auto-Generate d Referral 05/21/2022 06/20/2023 1 1 [facility] for referral (narrative)No reason for referral information [facility]WLicking [facility] Work Phone: Reason for visit Narrative* Diagnostic Procedure Only (Urgent) - Closed Specialty Diagnoses / Procedures Referred By Contac t Referred To Contact XR IMAGING Diagnoses Left hip pain Procedures XR HIP GENERAL 3V PELV/AP/LAT LEFT RADEX HIP UNILATERAL WITH PELVIS 2-3 VIEWS Jenna Fitzpatrick APRN.HIGHER LEVEL TEACHING ASSISTANT [address] [place] [address] [place] [address] Referral ID Status Reason Start Date Expiration Date V isits Requested Visits Authorized [id number] Closed Auto-Generate d Referral 05/21/2022 06/20/2023 1 1 [facility] for visit Narrative* MRI/CT (Routine) - Closed Specialty Diagnoses / Procedures Referred By Contac t Referred To Contact MR IMAGING Diagnoses Cognitive impairment, mild, so stated Procedures MRI BRAIN W QUANT WO IVCON MRI BRAIN BRAIN STEM W/O CONTRAST MATERIAL Luciana Cisneros MD [address] [place] [address] Phone: tel: fax: [place] [address] Referral ID Status Reason Start Date Expiration Date V isits Requested Visits Authorized [id number] Closed Auto-Generate d Referral 05/11/2024 07/10/2024 1 1 [facility] Summary Purpose Family History No Family [...] Will Yes December 21 6:17pm Power of Developer Programmer Yes December 21 6:17pm Name of Medical Power of Developer Programmer IRAJ HULL , DAUGHTER December 21, 2021 6:17pm Advance Directive Response Recorded Date/ Time Name of Medical Power of Developer Programmer Anabella Hull December 21, 2021 8:06pm Living Will Yes December 21 8:06pm Power of Developer Programmer Yes December 21 8:06pm Advance Directive Response Recorded Date/ Time Living Will Yes February 10 023 3:17pm Power of Developer Programmer Yes February 10, 2023 3:17pm Name of Medical Power of Developer Programmer daughter-yomi hull February 10, 2023 3:17pm Advance Directive Response Recorded Date/ Time Do you have a Healthcare Power of Developer Programmer? Yes September 01, 2024 7:36am Name of Medical Power of Developer Programmer anabella hull September 01, 2024 7:36am Advance Directive Response Recorded Date/ Time Do you have a Healthcare Power of Developer Programmer? Yes September 01, 2024 12:00pm Name of Medical Power of Developer Programmer anabella hull September 01, 2024 12:00pm Chief [...] LAB WORK September 28, 2024 5:00a m [facility] September 29, 2024 5: 00am Admission H&P Exam September 30, 2024 5:50 pm [facility] October 05, 2024 5: 00am [facility] October 06, 2024 5: 00am [...] LAB WORK September 28, 2024 5:00a m [facility] September 29, 2024 5: 00am Admission H&P Exam September 30, 2024 5:50 pm [facility] October 05, 2024 5: 00am [facility] October 06, 2024 5: 00am [...] LAB WORK September 28, 2024 5:00a m [facility] September 29, 2024 5: 00am Admission H&P Exam September 30, 2024 5:50 pm [facility] October 05, 2024 5: 00am [facility] WORK October 06, 2024 5: 00am [...] LAB WORK September 28, 2024 5:00a m [facility] September 29, 2024 5: 00am Admission H&P Exam September 30, 2024 5:50 pm [facility] October 05, 2024 5: 00am [facility] WORK October 06, 2024 5: 00am [...] LAB WORK September 28, 2024 5:00a m [facility] September 29, 2024 5: 00am Admission H&P Exam September 30, 2024 5:50 pm [facility] October 05, 2024 5: 00am [facility] October 06, 2024 5: 00am New Concern October 20, 2024 2:54 pm ADMISSION, H&P October 25, 2024 2:2 2pm LABWORK October 31, 2024 5: 00am LABWORK November 02, 2024 5: 00am [facility] WORK November 23 5:00am ADMISSION H&P EXAM BY EMAIL DEPLOYMENT SPECIALIST November 24, 2024 3:34pm LABWORK November 25, 2024 5:00am ADMISSION H&P/MONTHLY EXAM November 1:06pm [facility] WORK November 30 5:00am [facility] WORK December 14 5:35am [facility] WORK December 21, 2024 5:45am Reason for Referral Specialty Diagnoses / Procedures Referred By Contaron t Referred To Contact [facility] Diagnoses Shuffling gait Ambulatory dysfunction Balance disorder Procedures CONSULT TO PHYSICAL THERAPY PHYSICAL THERAPY EVALUATION HIGH COMPLEX 45 MINS Ganta, Luciana, MD [address] [place] [address] [facility] [place] [employer] [facility] [address] [place] [address] Referral ID Status Reason Start Date Expiration Date Visits Requested Visits Authorized [id number] Pending Review Auto-Generat ed Referral 04/27/2024 04/27/2025 1 1 Specialty Diagnoses / Procedures Referred By Contac t Referred To Contact MR IMAGING Diagnoses Cognitive impairment, mild, so stated Procedures MRI BRAIN W QUANT WO IVCON MRI BRAIN BRAIN STEM W/O CONTRAST MATERIAL Luciana Cisneros MD [address] [place] [address] Mr Imaging [id number] Referral ID Status Reason Start Date Expiration Date Visits Requested Visits Authorized [id number] Pending Review Auto-Generat ed Referral 04/27/2024 05/27/2025 1 1 Specialty Diagnoses / Procedures Referred By Contac t Referred To Contact Gerontology Diagnoses Dementia, unspecified dementia severity, unspecified dementia type, unspecified whether behavioral, psychotic, or mood disturbance or anxiety (HCC) Procedures CONSULT TO GERIATRICS OFFICE/OUTPATIENT [facility] 60 MINUTES Stas Mora MD [facility] [place] [address] Referral ID Status Reason Start Date Expiration Date Visits Requested Visits Authorized [id number] Authorized PCP Requested Referral 04/25/2024 04/25/2025 1 1 Specialty Diagnoses / Procedures Referred By Contac t Referred To Contact MR IMAGING Diagnoses Cerebral infarction, unspecified mechanism (HCC) Procedures MRI BRAIN WO IVCON MRI BRAIN BRAIN STEM W/O CONTRAST MATERIAL Stas Mroa MD [facility] [place] [address] Mr Imaging [id number] Referral ID Status Reason Start Date Expiration Date Visits Requested Visits Authorized [id number] Pending Review Auto-Genera eli Referral Patient Cleared - Admin/Chair man/Directo r advise to proceed or did not respond 3 03/17/2024 1 1 Additional Source Comments (unrecognized sect ion and content) No Status Records FoundNo Status Records FoundNo Status Records FoundNo Status Records FoundNo Status Records FoundNo Status Records FoundNo Status Records Found INFORMATION SOURCE (unrecogn ized section and content) DATE CREATED AUTHOR 09/11/2017 [facility] DATE CREATED AUTHOR AUTHOR'S ORGANIZ ATION 09/11/2017 [facility] DATE CREATED AUTHOR AUTHOR'S ORGANIZ ATION [facility]15/[facility] DATE CREATED AUTHOR AUTHOR'S ORGANIZ ATION 08/12/2023 [facility] ([place]) DATE CREATED AUTHOR AUTHOR'S ORGANIZ ATION 05/24/2024 [facility] DATE CREATED AUTHOR AUTHOR'S ORGANIZ ATION 02/02/2025 [facility] DATE CREATED AUTHOR AUTHOR'S ORGANIZ ATION 02/02/2025 [facility] Source Comments (unrecognize d section and content) In the event this informatio n is protected by the Federal Confidentiality of Alcohol and Drug Abuse Patient Records regulations: The Federal rules restrict any use of the information to criminally investigate or prosecute any alcohol or drug abuse patient.[facility] the event this information is protected by the Federal Confidentiality of Alcohol and Drug Abuse Patient Records regulations: The Federal rules restrict any use of the information to criminally investigate or prosecute any alcohol or drug abuse patient.[facility] the event this information is protected by the Federal Confidentiality of Alcohol and Drug Abuse Patient Records regulations: The Federal rules restrict any use of the information to criminally investigate or prosecute any alcohol or drug abuse patient.[facility] the event this information is protected by the Federal Confidentiality of Alcohol and Drug Abuse Patient Records regulations: The Federal rules restrict any use of the information to criminally investigate or prosecute any alcohol or drug abuse patient.[facility] the event this information is protected by the Federal Confidentiality of Alcohol and Drug Abuse Patient Records regulations: The Federal rules restrict any use of the information to criminally investigate or prosecute any alcohol or drug abuse patient.[facility] the event this information is protected by the Federal Confidentiality of Alcohol and Drug Abuse Patient Records regulations: The Federal rules restrict any use of the information to criminally investigate or prosecute any alcohol or drug abuse patient.[facility] the event this information is protected by the Federal Confidentiality of Alcohol and Drug Abuse Patient Records regulations: The Federal rules restrict any use of the information to criminally investigate or prosecute any alcohol or drug abuse patient.[facility] the event this information is protected by the Federal Confidentiality of Alcohol and Drug Abuse Patient Records regulations: The Federal rules restrict any use of the information to criminally investigate or prosecute any alcohol or drug abuse patient.[facility] the event this information is protected by the Federal Confidentiality of Alcohol and Drug Abuse Patient Records regulations: The Federal rules restrict any use of the information to criminally investigate or prosecute any alcohol or drug abuse patient.[facility] the event this information is protected by the Federal Confidentiality of Alcohol and Drug Abuse Patient Records regulations: The Federal rules restrict any use of the information to criminally investigate or prosecute any alcohol or drug abuse patient.[facility] the event this information is protected by the Federal Confidentiality of Alcohol and Drug Abuse Patient Records regulations: The Federal rules restrict any use of the information to criminally investigate or prosecute any alcohol or drug abuse patient.[facility] Hospital[facility] the event this information is protected by the Federal Confidentiality of Alcohol and Drug Abuse Patient Records regulations: The Federal rules restrict any use of the information to criminally investigate or prosecute any alcohol or drug abuse patient.[facility] Hospital[facility] the event this information is protected by the Federal Confidentiality of Alcohol and Drug Abuse Patient Records regulations: The Federal rules restrict any use of the information to criminally investigate or prosecute any alcohol or drug abuse patient.[facility] Hospital[facility] the event this information is protected by the Federal Confidentiality of Alcohol and Drug Abuse Patient Records regulations: The Federal rules restrict any use of the information to criminally investigate or prosecute any alcohol or drug abuse patient.[facility] Hospital[facility] the event this information is protected by the Federal Confidentiality of Alcohol and Drug Abuse Patient Records regulations: The Federal rules restrict any use of the information to criminally investigate or prosecute any alcohol or drug abuse patient.[facility] Hospital[facility] the event this information is protected by the Federal Confidentiality of Alcohol and Drug Abuse Patient Records regulations: The Federal rules restrict any use of the information to criminally investigate or prosecute any alcohol or drug abuse patient.[facility] Hospital[facility] the event this information is protected by the Federal Confidentiality of Alcohol and Drug Abuse Patient Records regulations: The Federal rules restrict any use of the information to criminally investigate or prosecute any alcohol or drug abuse patient.[facility] Hospital[facility] the event this information is protected by the Federal Confidentiality of Alcohol and Drug Abuse Patient Records regulations: The Federal rules restrict any use of the information to criminally investigate or prosecute any alcohol or drug abuse patient.[facility] HospitalIn the event this information is protected by the Federal Confidentiality of Alcohol and Drug Abuse Patient Records regulations: The Federal rules restrict any use of the information to criminally investigate or prosecute any alcohol or drug abuse patient.[facility] HospitalIn the event this information is protected by the Federal Confidentiality of Alcohol and Drug Abuse Patient Records regulations: The Federal rules restrict any use of the information to criminally investigate or prosecute any alcohol or drug abuse patient.[facility] HospitalIn the event this information is protected by the Federal Confidentiality of Alcohol and Drug Abuse Patient Records regulations: The Federal rules restrict any use of the information to criminally investigate or prosecute any alcohol or drug abuse patient.[facility] HospitalIn the event this information is protected by the Federal Confidentiality of Alcohol and Drug Abuse Patient Records regulations: The Federal rules restrict any use of the information to criminally investigate or prosecute any alcohol or drug abuse patient.[facility] HospitalIn the event this information is protected by the Federal Confidentiality of Alcohol and Drug Abuse Patient Records regulations: The Federal rules restrict any use of the information to criminally investigate or prosecute any alcohol or drug abuse patient.[facility] Hospital[facility] the event this information is protected by the Federal Confidentiality of Alcohol and Drug Abuse Patient Records regulations: The Federal rules restrict any use of the information to criminally investigate or prosecute any alcohol or drug abuse patient.[facility] Hospital[facility] the event this information is protected by the Federal Confidentiality of Alcohol and Drug Abuse Patient Records regulations: The Federal rules restrict any use of the information to criminally investigate or prosecute any alcohol or drug abuse patient.[facility] HospitalIn the event this information is protected by the Federal Confidentiality of Alcohol and Drug Abuse Patient Records regulations: The Federal rules restrict any use of the information to criminally investigate or prosecute any alcohol or drug abuse patient.[facility] HospitalIn the event this information is protected by the Federal Confidentiality of Alcohol and Drug Abuse Patient Records regulations: The Federal rules restrict any use of the information to criminally investigate or prosecute any alcohol or drug abuse patient.[facility] HospitalIn the event this information is protected by the Federal Confidentiality of Alcohol and Drug Abuse Patient Records regulations: The Federal rules restrict any use of the information to criminally investigate or prosecute any alcohol or drug abuse patient.[facility] HospitalIn the event this information is protected by the Federal Confidentiality of Alcohol and Drug Abuse Patient Records regulations: The Federal rules restrict any use of the information to criminally investigate or prosecute any alcohol or drug abuse patient.[facility] HospitalIn the event this information is protected by the Federal Confidentiality of Alcohol and Drug Abuse Patient Records regulations: The Federal rules restrict any use of the information to criminally investigate or prosecute any alcohol or drug abuse patient.[facility] HospitalIn the event this information is protected by the Federal Confidentiality of Alcohol and Drug Abuse Patient Records regulations: The Federal rules restrict any use of the information to criminally investigate or prosecute any alcohol or drug abuse patient.[facility] HospitalIn the event this information is protected by the Federal Confidentiality of Alcohol and Drug Abuse Patient Records regulations: The Federal rules restrict any use of the information to criminally investigate or prosecute any alcohol or drug abuse patient.[facility] HospitalIn the event this information is protected by the Federal Confidentiality of Alcohol and Drug Abuse Patient Records regulations: The Federal rules restrict any use of the information to criminally investigate or prosecute any alcohol or drug abuse patient.[facility] HospitalIn the event this information is protected by the Federal Confidentiality of Alcohol and Drug Abuse Patient Records regulations: The Federal rules restrict any use of the information to criminally investigate or prosecute any alcohol or drug abuse patient.[facility] HospitalIn the event this information is protected by the Federal Confidentiality of Alcohol and Drug Abuse Patient Records regulations: The Federal rules restrict any use of the information to criminally investigate or prosecute any alcohol or drug abuse patient.[facility] HospitalIn the event this information is protected by the Federal Confidentiality of Alcohol and Drug Abuse Patient Records regulations: The Federal rules restrict any use of the information to criminally investigate or prosecute any alcohol or drug abuse patient.[facility] HospitalIn the event this information is protected by the Federal Confidentiality of Alcohol and Drug Abuse Patient Records regulations: The Federal rules restrict any use of the information to criminally investigate or prosecute any alcohol or drug abuse patient.[facility] HospitalIn the event this information is protected by the Federal Confidentiality of Alcohol and Drug Abuse Patient Records regulations: The Federal rules restrict any use of the information to criminally investigate or prosecute any alcohol or drug abuse patient.[facility] HospitalIn the event this information is protected by the Federal Confidentiality of Alcohol and Drug Abuse Patient Records regulations: The Federal rules restrict any use of the information to criminally investigate or prosecute any alcohol or drug abuse patient.[facility] HospitalIn the event this information is protected by the Federal Confidentiality of Alcohol and Drug Abuse Patient Records regulations: The Federal rules restrict any use of the information to criminally investigate or prosecute any alcohol or drug abuse patient.[facility] HospitalIn the event this information is protected by the Federal Confidentiality of Alcohol and Drug Abuse Patient Records regulations: The Federal rules restrict any use of the information to criminally investigate or prosecute any alcohol or drug abuse patient.[facility] HospitalIn the event this information is protected by the Federal Confidentiality of Alcohol and Drug Abuse Patient Records regulations: The Federal rules restrict any use of the information to criminally investigate or prosecute any alcohol or drug abuse patient.[facility] HospitalIn the event this information is protected by the Federal Confidentiality of Alcohol and Drug Abuse Patient Records regulations: The Federal rules restrict any use of the information to criminally investigate or prosecute any alcohol or drug abuse patient.[facility] HospitalIn the event this information is protected by the Federal Confidentiality of Alcohol and Drug Abuse Patient Records regulations: The Federal rules restrict any use of the information to criminally investigate or prosecute any alcohol or drug abuse patient.[facility] HospitalIn the event this information is protected by the Federal Confidentiality of Alcohol and Drug Abuse Patient Records regulations: The Federal rules restrict any use of the information to criminally investigate or prosecute any alcohol or drug abuse patient.[facility] HospitalIn the event this information is protected by the Federal Confidentiality of Alcohol and Drug Abuse Patient Records regulations: The Federal rules restrict any use of the information to criminally investigate or prosecute any alcohol or drug abuse patient.[facility] HospitalIn the event this information is protected by the Federal Confidentiality of Alcohol and Drug Abuse Patient Records regulations: The Federal rules restrict any use of the information to criminally investigate or prosecute any alcohol or drug abuse patient.[facility] HospitalIn the event this information is protected by the Federal Confidentiality of Alcohol and Drug Abuse Patient Records regulations: The Federal rules restrict any use of the information to criminally investigate or prosecute any alcohol or drug abuse patient.[facility] HospitalIn the event this information is protected by the Federal Confidentiality of Alcohol and Drug Abuse Patient Records regulations: The Federal rules restrict any use of the information to criminally investigate or prosecute any alcohol or drug abuse patient.[facility] HospitalIn the event this information is protected by the Federal Confidentiality of Alcohol and Drug Abuse Patient Records regulations: The Federal rules restrict any use of the information to criminally investigate or prosecute any alcohol or drug abuse patient.[facility] HospitalIn the event this information is protected by the Federal Confidentiality of Alcohol and Drug Abuse Patient Records regulations: The Federal rules restrict any use of the information to criminally investigate or prosecute any alcohol or drug abuse patient.[facility] HospitalIn the event this information is protected by the Federal Confidentiality of Alcohol and Drug Abuse Patient Records regulations: The Federal rules restrict any use of the information to criminally investigate or prosecute any alcohol or drug abuse patient.[facility] HospitalIn the event this information is protected by the Federal Confidentiality of Alcohol and Drug Abuse Patient Records regulations: The Federal rules restrict any use of the information to criminally investigate or prosecute any alcohol or drug abuse patient.[facility] HospitalIn the event this information is protected by the Federal Confidentiality of Alcohol and Drug Abuse Patient Records regulations: The Federal rules restrict any use of the information to criminally investigate or prosecute any alcohol or drug abuse patient.[facility] HospitalIn the event this information is protected by the Federal Confidentiality of Alcohol and Drug Abuse Patient Records regulations: The Federal rules restrict any use of the information to criminally investigate or prosecute any alcohol or drug abuse patient.[facility] HospitalIn the event this information is protected by the Federal Confidentiality of Alcohol and Drug Abuse Patient Records regulations: The Federal rules restrict any use of the information to criminally investigate or prosecute any alcohol or drug abuse patient.[facility] HospitalIn the event this information is protected by the Federal Confidentiality of Alcohol and Drug Abuse Patient Records regulations: The Federal rules restrict any use of the information to criminally investigate or prosecute any alcohol or drug abuse patient.[facility] HospitalIn the event this information is protected by the Federal Confidentiality of Alcohol and Drug Abuse Patient Records regulations: The Federal rules restrict any use of the information to criminally investigate or prosecute any alcohol or drug abuse patient.[facility] HospitalIn the event this information is protected by the Federal Confidentiality of Alcohol and Drug Abuse Patient Records regulations: The Federal rules restrict any use of the information to criminally investigate or prosecute any alcohol or drug abuse patient.[facility] HospitalIn the event this information is protected by the Federal Confidentiality of Alcohol and Drug Abuse Patient Records regulations: The Federal rules restrict any use of the information to criminally investigate or prosecute any alcohol or drug abuse patient.[facility] HospitalIn the event this information is protected by the Federal Confidentiality of Alcohol and Drug Abuse Patient Records regulations: The Federal rules restrict any use of the information to criminally investigate or prosecute any alcohol or drug abuse patient.[facility] HospitalIn the event this information is protected by the Federal Confidentiality of Alcohol and Drug Abuse Patient Records regulations: The Federal rules restrict any use of the information to criminally investigate or prosecute any alcohol or drug abuse patient.[facility] HospitalIn the event this information is protected by the Federal Confidentiality of Alcohol and Drug Abuse Patient Records regulations: The Federal rules restrict any use of the information to criminally investigate or prosecute any alcohol or drug abuse patient.[facility] HospitalIn the event this information is protected by the Federal Confidentiality of Alcohol and Drug Abuse Patient Records regulations: The Federal rules restrict any use of the information to criminally investigate or prosecute any alcohol or drug abuse patient.[facility] HospitalIn the event this information is protected by the Federal Confidentiality of Alcohol and Drug Abuse Patient Records regulations: The Federal rules restrict any use of the information to criminally investigate or prosecute any alcohol or drug abuse patient.[facility] HospitalIn the event this information is protected by the Federal Confidentiality of Alcohol and Drug Abuse Patient Records regulations: The Federal rules restrict any use of the information to criminally investigate or prosecute any alcohol or drug abuse patient.[facility] HospitalIn the event this information is protected by the Federal Confidentiality of Alcohol and Drug Abuse Patient Records regulations: The Federal rules restrict any use of the information to criminally investigate or prosecute any alcohol or drug abuse patient.[facility] HospitalIn the event this information is protected by the Federal Confidentiality of Alcohol and Drug Abuse Patient Records regulations: The Federal rules restrict any use of the information to criminally investigate or prosecute any alcohol or drug abuse patient.[facility] HospitalIn the event this information is protected by the Federal Confidentiality of Alcohol and Drug Abuse Patient Records regulations: The Federal rules restrict any use of the information to criminally investigate or prosecute any alcohol or drug abuse patient.[facility] HospitalIn the event this information is protected by the Federal Confidentiality of Alcohol and Drug Abuse Patient Records regulations: The Federal rules restrict any use of the information to criminally investigate or prosecute any alcohol or drug abuse patient.[facility] HospitalIn the event this information is protected by the Federal Confidentiality of Alcohol and Drug Abuse Patient Records regulations: The Federal rules restrict any use of the information to criminally investigate or prosecute any alcohol or drug abuse patient.[facility] HospitalIn the event this information is protected by the Federal Confidentiality of Alcohol and Drug Abuse Patient Records regulations: The Federal rules restrict any use of the information to criminally investigate or prosecute any alcohol or drug abuse patient.[facility] HospitalIn the event this information is protected by the Federal Confidentiality of Alcohol and Drug Abuse Patient Records regulations: The Federal rules restrict any use of the information to criminally investigate or prosecute any alcohol or drug abuse patient.[facility] HospitalIn the event this information is protected by the Federal Confidentiality of Alcohol and Drug Abuse Patient Records regulations: The Federal rules restrict any use of the information to criminally investigate or prosecute any alcohol or drug abuse patient.[facility] HospitalIn the event this information is protected by the Federal Confidentiality of Alcohol and Drug Abuse Patient Records regulations: The Federal rules restrict any use of the information to criminally investigate or prosecute any alcohol or drug abuse patient.[facility] HospitalIn the event this information is protected by the Federal Confidentiality of Alcohol and Drug Abuse Patient Records regulations: The Federal rules restrict any use of the information to criminally investigate or prosecute any alcohol or drug abuse patient.[facility] HospitalIn the event this information is protected by the Federal Confidentiality of Alcohol and Drug Abuse Patient Records regulations: The Federal rules restrict any use of the information to criminally investigate or prosecute any alcohol or drug abuse patient.[facility] HospitalIn the event this information is protected by the Federal Confidentiality of Alcohol and Drug Abuse Patient Records regulations: The Federal rules restrict any use of the information to criminally investigate or prosecute any alcohol or drug abuse patient.[facility] HospitalIn the event this information is protected by the Federal Confidentiality of Alcohol and Drug Abuse Patient Records regulations: The Federal rules restrict any use of the information to criminally investigate or prosecute any alcohol or drug abuse patient.[facility] HospitalIn the event this information is protected by the Federal Confidentiality of Alcohol and Drug Abuse Patient Records regulations: The Federal rules restrict any use of the information to criminally investigate or prosecute any alcohol or drug abuse patient.[facility] HospitalIn the event this information is protected by the Federal Confidentiality of Alcohol and Drug Abuse Patient Records regulations: The Federal rules restrict any use of the information to criminally investigate or prosecute any alcohol or drug abuse patient.[facility] HospitalIn the event this information is protected by the Federal Confidentiality of Alcohol and Drug Abuse Patient Records regulations: The Federal rules restrict any use of the information to criminally investigate or prosecute any alcohol or drug abuse patient.[facility] HospitalIn the event this information is protected by the Federal Confidentiality of Alcohol and Drug Abuse Patient Records regulations: The Federal rules restrict any use of the information to criminally investigate or prosecute any alcohol or drug abuse patient.[facility] HospitalIn the event this information is protected by the Federal Confidentiality of Alcohol and Drug Abuse Patient Records regulations: The Federal rules restrict any use of the information to criminally investigate or prosecute any alcohol or drug abuse patient.[facility] HospitalIn the event this information is protected by the Federal Confidentiality of Alcohol and Drug Abuse Patient Records regulations: The Federal rules restrict any use of the information to criminally investigate or prosecute any alcohol or drug abuse patient.[facility] HospitalIn the event this information is protected by the Federal Confidentiality of Alcohol and Drug Abuse Patient Records regulations: The Federal rules restrict any use of the information to criminally investigate or prosecute any alcohol or drug abuse patient.[facility] HospitalIn the event this information is protected by the Federal Confidentiality of Alcohol and Drug Abuse Patient Records regulations: The Federal rules restrict any use of the information to criminally investigate or prosecute any alcohol or drug abuse patient.[facility] HospitalIn the event this information is protected by the Federal Confidentiality of Alcohol and Drug Abuse Patient Records regulations: The Federal rules restrict any use of the information to criminally investigate or prosecute any alcohol or drug abuse patient.[facility] HospitalIn the event this information is protected by the Federal Confidentiality of Alcohol and Drug Abuse Patient Records regulations: The Federal rules restrict any use of the information to criminally investigate or prosecute any alcohol or drug abuse patient.[facility] HospitalIn the event this information is protected by the Federal Confidentiality of Alcohol and Drug Abuse Patient Records regulations: The Federal rules restrict any use of the information to criminally investigate or prosecute any alcohol or drug abuse patient.[facility] HospitalIn the event this information is protected by the Federal Confidentiality of Alcohol and Drug Abuse Patient Records regulations: The Federal rules restrict any use of the information to criminally investigate or prosecute any alcohol or drug abuse patient.[facility] HospitalIn the event this information is protected by the Federal Confidentiality of Alcohol and Drug Abuse Patient Records regulations: The Federal rules restrict any use of the information to criminally investigate or prosecute any alcohol or drug abuse patient.[facility] HospitalIn the event this information is protected by the Federal Confidentiality of Alcohol and Drug Abuse Patient Records regulations: The Federal rules restrict any use of the information to criminally investigate or prosecute any alcohol or drug abuse patient.[facility] HospitalIn the event this information is protected by the Federal Confidentiality of Alcohol and Drug Abuse Patient Records regulations: The Federal rules restrict any use of the information to criminally investigate or prosecute any alcohol or drug abuse patient.[facility] HospitalIn the event this information is protected by the Federal Confidentiality of Alcohol and Drug Abuse Patient Records regulations: The Federal rules restrict any use of the information to criminally investigate or prosecute any alcohol or drug abuse patient.[facility] HospitalIn the event this information is protected by the Federal Confidentiality of Alcohol and Drug Abuse Patient Records regulations: The Federal rules restrict any use of the information to criminally investigate or prosecute any alcohol or drug abuse patient.[facility] HospitalIn the event this information is protected by the Federal Confidentiality of Alcohol and Drug Abuse Patient Records regulations: The Federal rules restrict any use of the information to criminally investigate or prosecute any alcohol or drug abuse patient.[facility] HospitalIn the event this information is protected by the Federal Confidentiality of Alcohol and Drug Abuse Patient Records regulations: The Federal rules restrict any use of the information to criminally investigate or prosecute any alcohol or drug abuse patient.[facility] HospitalIn the event this information is protected by the Federal Confidentiality of Alcohol and Drug Abuse Patient Records regulations: The Federal rules restrict any use of the information to criminally investigate or prosecute any alcohol or drug abuse patient.[facility] HospitalIn the event this information is protected by the Federal Confidentiality of Alcohol and Drug Abuse Patient Records regulations: The Federal rules restrict any use of the information to criminally investigate or prosecute any alcohol or drug abuse patient.[facility] HospitalIn the event this information is protected by the Federal Confidentiality of Alcohol and Drug Abuse Patient Records regulations: The Federal rules restrict any use of the information to criminally investigate or prosecute any alcohol or drug abuse patient.[facility] HospitalIn the event this information is protected by the Federal Confidentiality of Alcohol and Drug Abuse Patient Records regulations: The Federal rules restrict any use of the information to criminally investigate or prosecute any alcohol or drug abuse patient.[facility] HospitalIn the event this information is protected by the Federal Confidentiality of Alcohol and Drug Abuse Patient Records regulations: The Federal rules restrict any use of the information to criminally investigate or prosecute any alcohol or drug abuse patient.[facility] HospitalIn the event this information is protected by the Federal Confidentiality of Alcohol and Drug Abuse Patient Records regulations: The Federal rules restrict any use of the information to criminally investigate or prosecute any alcohol or drug abuse patient.[facility] HospitalIn the event this information is protected by the Federal Confidentiality of Alcohol and Drug Abuse Patient Records regulations: The Federal rules restrict any use of the information to criminally investigate or prosecute any alcohol or drug abuse patient.[facility] HospitalIn the event this information is protected by the Federal Confidentiality of Alcohol and Drug Abuse Patient Records regulations: The Federal rules restrict any use of the information to criminally investigate or prosecute any alcohol or drug abuse patient.[facility] HospitalIn the event this information is protected by the Federal Confidentiality of Alcohol and Drug Abuse Patient Records regulations: The Federal rules restrict any use of the information to criminally investigate or prosecute any alcohol or drug abuse patient.[facility] HospitalIn the event this information is protected by the Federal Confidentiality of Alcohol and Drug Abuse Patient Records regulations: The Federal rules restrict any use of the information to criminally investigate or prosecute any alcohol or drug abuse patient.[facility] HospitalIn the event this information is protected by the Federal Confidentiality of Alcohol and Drug Abuse Patient Records regulations: The Federal rules restrict any use of the information to criminally investigate or prosecute any alcohol or drug abuse patient.[facility] HospitalIn the event this information is protected by the Federal Confidentiality of Alcohol and Drug Abuse Patient Records regulations: The Federal rules restrict any use of the information to criminally investigate or prosecute any alcohol or drug abuse patient.[facility] HospitalIn the event this information is protected by the Federal Confidentiality of Alcohol and Drug Abuse Patient Records regulations: The Federal rules restrict any use of the information to criminally investigate or prosecute any alcohol or drug abuse patient.[facility] HospitalIn the event this information is protected by the Federal Confidentiality of Alcohol and Drug Abuse Patient Records regulations: The Federal rules restrict any use of the information to criminally investigate or prosecute any alcohol or drug abuse patient.[facility] HospitalIn the event this information is protected by the Federal Confidentiality of Alcohol and Drug Abuse Patient Records regulations: The Federal rules restrict any use of the information to criminally investigate or prosecute any alcohol or drug abuse patient.[facility] HospitalIn the event this information is protected by the Federal Confidentiality of Alcohol and Drug Abuse Patient Records regulations: The Federal rules restrict any use of the information to criminally investigate or prosecute any alcohol or drug abuse patient.[facility] HospitalIn the event this information is protected by the Federal Confidentiality of Alcohol and Drug Abuse Patient Records regulations: The Federal rules restrict any use of the information to criminally investigate or prosecute any alcohol or drug abuse patient.[facility] HospitalIn the event this information is protected by the Federal Confidentiality of Alcohol and Drug Abuse Patient Records regulations: The Federal rules restrict any use of the information to criminally investigate or prosecute any alcohol or drug abuse patient.[facility] HospitalIn the event this information is protected by the Federal Confidentiality of Alcohol and Drug Abuse Patient Records regulations: The Federal rules restrict any use of the information to criminally investigate or prosecute any alcohol or drug abuse patient.[facility] HospitalIn the event this information is protected by the Federal Confidentiality of Alcohol and Drug Abuse Patient Records regulations: The Federal rules restrict any use of the information to criminally investigate or prosecute any alcohol or drug abuse patient.[facility] HospitalIn the event this information is protected by the Federal Confidentiality of Alcohol and Drug Abuse Patient Records regulations: The Federal rules restrict any use of the information to criminally investigate or prosecute any alcohol or drug abuse patient.[facility] HospitalIn the event this information is protected by the Federal Confidentiality of Alcohol and Drug Abuse Patient Records regulations: The Federal rules restrict any use of the information to criminally investigate or prosecute any alcohol or drug abuse patient.[facility] HospitalIn the event this information is protected by the Federal Confidentiality of Alcohol and Drug Abuse Patient Records regulations: The Federal rules restrict any use of the information to criminally investigate or prosecute any alcohol or drug abuse patient.[facility] HospitalIn the event this information is protected by the Federal Confidentiality of Alcohol and Drug Abuse Patient Records regulations: The Federal rules restrict any use of the information to criminally investigate or prosecute any alcohol or drug abuse patient.[facility] HospitalIn the event this information is protected by the Federal Confidentiality of Alcohol and Drug Abuse Patient Records regulations: The Federal rules restrict any use of the information to criminally investigate or prosecute any alcohol or drug abuse patient.[facility] HospitalIn the event this information is protected by the Federal Confidentiality of Alcohol and Drug Abuse Patient Records regulations: The Federal rules restrict any use of the information to criminally investigate or prosecute any alcohol or drug abuse patient.[facility] HospitalIn the event this information is protected by the Federal Confidentiality of Alcohol and Drug Abuse Patient Records regulations: The Federal rules restrict any use of the information to criminally investigate or prosecute any alcohol or drug abuse patient.[facility] HospitalIn the event this information is protected by the Federal Confidentiality of Alcohol and Drug Abuse Patient Records regulations: The Federal rules restrict any use of the information to criminally investigate or prosecute any alcohol or drug abuse patient.[facility] HospitalIn the event this information is protected by the Federal Confidentiality of Alcohol and Drug Abuse Patient Records regulations: The Federal rules restrict any use of the information to criminally investigate or prosecute any alcohol or drug abuse patient.[facility] HospitalIn the event this information is protected by the Federal Confidentiality of Alcohol and Drug Abuse Patient Records regulations: The Federal rules restrict any use of the information to criminally investigate or prosecute any alcohol or drug abuse patient.[facility] HospitalIn the event this information is protected by the Federal Confidentiality of Alcohol and Drug Abuse Patient Records regulations: The Federal rules restrict any use of the information to criminally investigate or prosecute any alcohol or drug abuse patient.[facility] HospitalIn the event this information is protected by the Federal Confidentiality of Alcohol and Drug Abuse Patient Records regulations: The Federal rules restrict any use of the information to criminally investigate or prosecute any alcohol or drug abuse patient.[facility] HospitalIn the event this information is protected by the Federal Confidentiality of Alcohol and Drug Abuse Patient Records regulations: The Federal rules restrict any use of the information to criminally investigate or prosecute any alcohol or drug abuse patient.[facility] HospitalIn the event this information is protected by the Federal Confidentiality of Alcohol and Drug Abuse Patient Records regulations: The Federal rules restrict any use of the information to criminally investigate or prosecute any alcohol or drug abuse patient.[facility] HospitalIn the event this information is protected [...] any alcohol or drug abuse patient.[facility] Reason for Visit (unrecogniz ed section [...] STEM W/O CONTRAST MATERIAL Stas Mora MD [address] [facility] [place] [address] [place] [address] Referral ID Status Reason Start Date Expiration Date V isits Requested Visits Authorized [id number] Closed Auto-Generat ed Referral Patient Cleared - [...] CONSULT TO GERIATRICS OFFICE/OUTPATIENT [facility] 60 MINUTES Stas Mora MD [address] [place] [address] Referral ID Status Reason Start Date Expiration Date V isits Requested Visits Authorized [id number] Closed PCP Requested Referral 04/25/2024 04/25/2025 1 [...] Care Teams (unrecognized sec tion and content) Silk Trimmer Relationship Specialty Start Date End Date Stas Mora MD [address] [facility] [place] [address] PCP - General 08/02/08, Pharmacist 37[address] [facility] [place] [address] Pharmacist Pharmacy 10/19/19 Silk Trimmer Relationship Specialty Start Date End Date Stas Mora MD [address] [place] [address] PCP - General 08/02/08, Pharmacist [id number] [place] [address], [place] [address] Pharmacist Pharmacy 10/19/19 Silk Trimmer Relationship Specialty Start Date End Date Stas Mora MD [address] [place] [address] PCP - General 08/02/08, Pharmacist 27447 [facility] [place] [address] Pharmacist Pharmacy 10/19/19 Silk Trimmer Relationship Specialty Start Date End Date Stas Mora MD [address] [place] [address] PCP - General 08/02/08, Pharmacist 42821 [facility] [place] [address] Pharmacist Pharmacy 10/19/19 Silk Trimmer Relationship Specialty Start Date End Date Stas Mora MD [address] [place] [address] PCP - General 08/02/08, Pharmacist 53724 [place] [address] Pharmacist Pharmacy 10/19/19 Silk Trimmer Relationship Specialty Start Date End Date Stas Mora MD [address] [place] [address] PCP - General 08/02/08, Pharmacist 70011 [facility] [place] [address] Pharmacist Pharmacy 10/19/19 Silk Trimmer Relationship Specialty Start Date End Date Stas Mora MD [address] [place] [address] PCP - General 08/02/08, Pharmacist 16335 [facility] [place] [address] Pharmacist Pharmacy 10/19/19 Silk Trimmer Relationship Specialty [place] [address] [place] [address] PCP - General 08/02/08, Pharmacist [phone] [place] [address], [place] [address] Pharmacist Pharmacy 10/19/19 Silk Trimmer Relationship Specialty Start Date End Date Stas Mora MD [facility] [place] [address] PCP - General 08/02/08, Pharmacist [id number] [place] [address], [place] [address] Pharmacist Pharmacy 10/19/19 Silk Trimmer Relationship Specialty Start Date End Date Stas Mora MD [facility] [place] [address] PCP - General 08/02/08, Pharmacist 37468 [facility] [place] [address] Pharmacist Pharmacy 10/19/19 Silk Trimmer Relationship Specialty Start Date End Date Stas Mora MD [address] [place] [address] PCP - General 08/02/08, Pharmacist 80200 [facility] [place] [address] Pharmacist Pharmacy 10/19/19 Silk Trimmer Relationship Specialty Start Date End Date Stas Mora MD [address] [facility] [place] [address] PCP - General 08/02/08, Pharmacist [id number] [place] [address], [place] [address] Pharmacist Pharmacy 10/19/19 Silk Trimmer Relationship Specialty Start Date End Date Stas Mora MD [address] [place] [address] PCP - General 08/02/08, Pharmacist 81654 [facility] [place] [address] Pharmacist Pharmacy 10/19/19 Silk Trimmer Relationship Specialty Start Date End Date Stas Mora MD [address] [place] [address] PCP - General 08/02/08, Pharmacist [id number] [place] [address], [place] [address] Pharmacist Pharmacy 10/19/19 Silk Trimmer Relationship Specialty Start Date End Date Stas Mora MD [address] [place] [address] PCP - General 08/02/08, Pharmacist [phone] [place] [address], [place] [address] Pharmacist Pharmacy 10/19/19 Silk Trimmer Relationship Specialty Start Date End Date Stas Mora MD [address] [place] [address] PCP - General 08/02/08, Pharmacist 13593 [place] [address] Pharmacist Pharmacy 10/19/19 Silk Trimmer Relationship Specialty Start Date End Date Stas Mora MD [address] [place] [address] PCP - General 08/02/08, Pharmacist 44455 [facility] [place] [address] Pharmacist Pharmacy 10/19/19 Silk Trimmer Relationship Specialty Start Date End Date Stas Mora MD [address] [place] [address] PCP - General 08/02/08, Pharmacist [address] [place] [address] Pharmacist Pharmacy 10/19/19 Silk Trimmer Relationship Specialty Start Date End Date Stas Mora MD [address] [place] [address] PCP - General 08/02/08, Pharmacist [address]57 [place] [address] Pharmacist Pharmacy 10/19/19 Silk Trimmer Relationship Specialty Start Date End Date Stas Mora MD [address] [place] [address] PCP - General 08/02/08, Pharmacist [address] [place] [address] Pharmacist Pharmacy 10/19/19 Silk Trimmer Relationship Specialty Start Date End Date Stas Mora MD [address] [place] [address] PCP - General 08/02/08, Pharmacist [address] [place] [address] Pharmacist Pharmacy 10/19/19 Team Status: Active Member Role Status Dates Dr. Stas Mora MD Family Provider Active Dr. Stas Mora MD Primary Care Provider Active Team Status: Inactive Member Role Status Dates Dr. Stas Mora MD Primary Care Provider Active Dr. Brian Cunningham DO Emergency Provider Active Silk Trimmer Relationship Specialty Start Date End Date Stas Mora MD [address] [place] [address] PCP - General 08/02/08, Pharmacist [address] [place] [address] Pharmacist Pharmacy 10/19/19 Silk Trimmer Relationship Specialty Start Date End Date Stas Mora MD [address] [facility] [place] [address] PCP - General 08/02/08, Pharmacist [address] [place] [address] Pharmacist Pharmacy 10/19/19 Silk Trimmer Relationship Specialty Start Date End Date Stas Mora MD [address] [place] [address] PCP - General 08/02/08, Pharmacist [address]70 [place] [address] Pharmacist Pharmacy 10/19/19 Silk Trimmer Relationship Specialty Start Date End Date Stas Mora MD [address] [place] [address] PCP - General 08/02/08, Pharmacist [address] [place] [address] Pharmacist Pharmacy 10/19/19 Silk Trimmer Relationship Specialty Start Date End Date Stas Mora MD [address] [place] [address] PCP - General 08/02/08, Pharmacist [address] [place] [address] Pharmacist Pharmacy 10/19/19 Silk Trimmer Relationship Specialty Start Date End Date Stas Mora MD [address] [place] [address] PCP - General 08/02/08, Pharmacist [address] [place] [address] Pharmacist Pharmacy 10/19/19 Silk Trimmer Relationship Specialty Start Date End Date Stas Mora MD [address] [facility] [place] [address] PCP - General 08/02/08, Pharmacist [address] [place] [address] Pharmacist Pharmacy 10/19/19 Silk Trimmer Relationship Specialty Start Date End Date Stas Mora MD [address] [place] [address] PCP - General 08/02/08, Pharmacist [address] [place] [address] Pharmacist Pharmacy 10/19/19 Silk Trimmer Relationship Specialty Start Date End Date tSas Mora MD [address] [place] [address] PCP - General 08/02/08, Pharmacist 94211 [place] [address] Pharmacist Pharmacy 10/19/19 Silk Trimmer Relationship Specialty Start Date End Date Stas Mora MD [address] [place] [address] PCP - General 08/02/08, Pharmacist 69884 [place] [address] Pharmacist Pharmacy 10/19/19 Silk Trimmer Relationship Specialty Start Date End Date Stas Mora MD [address] [place] [address] PCP - General 08/02/08, Pharmacist [address] [place] [address] Pharmacist Pharmacy 10/19/19 Silk Trimmer Relationship Specialty Start Date End Date Stas Mora MD [address] [facility] [place] [address] PCP - General 08/02/08, Pharmacist 25990 [place] [address] Pharmacist Pharmacy 10/19/19 Silk Trimmer Relationship Specialty Start Date End Date Stas Mora MD [address] [facility] [place] [address] PCP - General 08/02/08, Pharmacist [address]273 [place] [address] Pharmacist Pharmacy 10/19/19 Silk Trimmer Relationship Specialty Start Date End Date Stas Mora MD [address] [place] [address] PCP - General 08/02/08, Pharmacist 46828 [place] [address] Pharmacist Pharmacy 10/19/19 Silk Trimmer Relationship Specialty Start Date End Date Stas Mora MD [address] [place] [address] PCP - General 08/02/08, Pharmacist [address]198 [place] [address] Pharmacist Pharmacy 10/19/19 Silk Trimmer Relationship Specialty Start Date End Date Stas Mora MD [address] [place] [address] PCP - General 08/02/08, Pharmacist 37190 [place] [address] Pharmacist Pharmacy 10/19/19 Silk Trimmer Relationship Specialty Start Date End Date Stas Mora MD [address] [place] [address] PCP - General 08/02/08, Pharmacist [address]169 [place] [address] Pharmacist Pharmacy 10/19/19 Silk Trimmer Relationship Specialty Start Date End Date Stas Mora MD [address] [place] [address] PCP - General 08/02/08, Pharmacist [address] [place] [address] Pharmacist Pharmacy 10/19/19 Silk Trimmer Relationship Specialty Start Date End Date Stas Mora MD [address] [place] [address] PCP - General 08/02/08, Pharmacist [address] [place] [address] Pharmacist Pharmacy 10/19/19 Silk Trimmer Relationship Specialty Start Date End Date Stas Mora MD [address] [place] [address] PCP - General 08/02/08, Pharmacist [address] [place] [address] Pharmacist Pharmacy 10/19/19 Silk Trimmer Relationship Specialty Start Date End Date Stas Mora MD [address] [place] [address] PCP - General 08/02/08, Pharmacist [address]84 [place] [address] Pharmacist Pharmacy 10/19/19 Silk Trimmer Relationship Specialty Start Date End Date Stas Mora MD [address] [place] [address] PCP - General 08/02/08, Pharmacist 59133 [place] [address] Pharmacist Pharmacy 10/19/19 Jenna Fitzpatrick APRN.HIGHER LEVEL TEACHING ASSISTANT [address] [place] [address] Sales Outfitter Family [facility] 02/28/24 Silk Trimmer Relationship Specialty Start Date End Date Stas Mora MD [address] [place] [address] PCP - General 08/02/08, Pharmacist [address]26 [place] [address] Pharmacist Pharmacy 10/19/19 Jenna Fitzpatrick DAIRY PROCESSING EQUIPMENT OPERATOR.HIGHER LEVEL TEACHING ASSISTANT [address] [place] [address] Sales Outfitter Family Medicine 02/28/24 Elvis Kearney DAIRY PROCESSING EQUIPMENT OPERATOR.HIGHER LEVEL TEACHING ASSISTANT [address] [place] [address] [facility] 03/08/24 Silk Trimmer Relationship Specialty Start Date End Date Stas Mora MD [address] [place] [address] PCP - General 08/02/08, Pharmacist 21055 [facility] [place] [address] Pharmacist Pharmacy 10/19/19 Jenna Fitzpatrick DAIRY PROCESSING EQUIPMENT OPERATOR.HIGHER LEVEL TEACHING ASSISTANT [address] [place] [address] Sales Outfitter Family Medicine 02/28/24 Elvis Kearney APRN.HIGHER LEVEL TEACHING ASSISTANT [address] [place] [address] Sales Outfitter Family Medicine 03/08/24 Silk Trimmer Relationship Specialty Start Date End Date Stas Mora MD [address] [facility] [place] [address] PCP - General 08/02/08, Pharmacist [address] [place] [address] Pharmacist Pharmacy 10/19/19 Jenna Fitzpatrick, DAIRY PROCESSING EQUIPMENT OPERATOR.HIGHER LEVEL TEACHING ASSISTANT [address] [facility] [place] [address] Sales Outfitter Family Medicine 02/28/24 Elvis Kearney DAIRY PROCESSING EQUIPMENT OPERATOR.HIGHER LEVEL TEACHING ASSISTANT [address] [facility] [place] [address] Sales Outfitter Family Medicine 03/08/24 Silk Trimmer Relationship Specialty Start Date End Date Stas Mora MD [address] [facility] [place] [address] PCP - General 08/02/08, Pharmacist [address] [place] [address] Pharmacist Pharmacy 10/19/19 Jenna Fitzpatrick DAIRY PROCESSING EQUIPMENT OPERATOR.HIGHER LEVEL TEACHING ASSISTANT [address] [facility] [place] [address] Sales Outfitter Family Medicine 02/28/24 Elvis Kearney DAIRY PROCESSING EQUIPMENT OPERATOR.HIGHER LEVEL TEACHING ASSISTANT [address] [facility] [place] [address] Sales Outfitter Family Medicine 03/08/24 Silk Trimmer Relationship Specialty Start Date End Date Stas Mora MD [address] [facility] [place] [address] PCP - General 08/02/08, Pharmacist 47123 [facility] [place] [address] Pharmacist Pharmacy 10/19/19 Jenna Fitzpatrick APRN.HIGHER LEVEL TEACHING ASSISTANT [address] [place] [address] Sales Outfitter Family Medicine 02/28/24 Elvis Kearney APRN.HIGHER LEVEL TEACHING ASSISTANT [address] [facility] [place] [address] Sales Outfitter Family [facility] 03/08/24 Silk Trimmer Relationship Specialty Start Date End Date Stas Mora MD [address] [place] [address] PCP - General 08/02/08, Pharmacist [address]164 [place] [address] Pharmacist Pharmacy 10/19/19 Jenna Fitzpatrick APRN.HIGHER LEVEL TEACHING ASSISTANT [address] [place] [address] [facility] 02/28/24 Elvis Kearney DAIRY PROCESSING EQUIPMENT OPERATOR.HIGHER LEVEL TEACHING ASSISTANT [address] [place] [address] [facility] 03/08/24 Silk Trimmer Relationship Specialty Start Date End Date Stas Mora MD [address] [place] [address] PCP - General 08/02/08, Pharmacist 32158 [facility] [place] [address] Pharmacist Pharmacy 10/19/19 Jenna Fitzpatrick APRN.HIGHER LEVEL TEACHING ASSISTANT [address] [place] [address] Sales Outfitter Family Medicine 02/28/24 Elvis Kearney APRN.HIGHER LEVEL TEACHING ASSISTANT [address] [facility] [place] [address] Sales Outfitter Family Medicine 03/08/24 Silk Trimmer Relationship Specialty Start Date End Date Stas Mora MD [address] [facility] [place] [address] PCP - General 08/02/08, Pharmacist [address] [place] [address] Pharmacist Pharmacy 10/19/19 Jenna Fitzpatrick APRN.HIGHER LEVEL TEACHING ASSISTANT [address] [place] [address] Sales Outfitter Family [facility] 02/28/24 Elvis Kearney APRN.HIGHER LEVEL TEACHING ASSISTANT [address] [place] [address] [facility] 03/08/24 Silk Trimmer Relationship Specialty Start Date End Date Stas Mora MD [address] [place] [address] PCP - General 08/02/08, Pharmacist [address] [place] [address] Pharmacist Pharmacy 10/19/19 Jenna Fitzpatrick APRN.HIGHER LEVEL TEACHING ASSISTANT [address] [place] [address] Sales Outfitter Family Medicine 02/28/24 Elvis Kearney APRN.HIGHER LEVEL TEACHING ASSISTANT [address] [place] [address] Sales Outfitter Family Medicine 03/08/24 Silk Trimmer Relationship Specialty Start Date End Date Stas Mora MD [address] [facility] [place] [address] PCP - General 08/02/08, Pharmacist [address]63 [place] [address] Pharmacist Pharmacy 10/19/19 Jenna Fitzpatrick, DAIRY PROCESSING EQUIPMENT OPERATOR.HIGHER LEVEL TEACHING ASSISTANT [address] [place] [address] Sales Outfitter Family Medicine 02/28/24 Elvis Kearney DAIRY PROCESSING EQUIPMENT OPERATOR.HIGHER LEVEL TEACHING ASSISTANT [address] [facility] [place] [address] Sales Outfitter Family Medicine 03/08/24 Silk Trimmer Relationship Specialty Start Date End Date Stas Mora MD [address] [facility] [place] [address] PCP - General 08/02/08, Pharmacist [address] [place] [address] Pharmacist Pharmacy 10/19/19 Jenna Fitzpatrick, DAIRY PROCESSING EQUIPMENT OPERATOR.HIGHER LEVEL TEACHING ASSISTANT [address] [place] [address] Sales Outfitter Family Medicine 02/28/24 Elvis Kearney, DAIRY PROCESSING EQUIPMENT OPERATOR.HIGHER LEVEL TEACHING ASSISTANT [address] [facility] [place] [address] Sales Outfitter Family Medicine 03/08/24 Silk Trimmer Relationship Specialty Start Date End Date Stas Mora MD [address] [facility] [place] [address] PCP - General 08/02/08, Pharmacist [address] [place] [address] Pharmacist Pharmacy 10/19/19 Jenna Fitzpatrick APRN.HIGHER LEVEL TEACHING ASSISTANT [address] [place] [address] Sales Outfitter Family Medicine 02/28/24 Elvis Kearney APRN.HIGHER LEVEL TEACHING ASSISTANT [address] [place] [address] Sales Outfitter Family Medicine 03/08/24 Silk Trimmer Relationship Specialty Start Date End Date Stas Mora MD [address] [place] [address] PCP - General 08/02/08, Pharmacist [address] [place] [address] Pharmacist Pharmacy 10/19/19 Jenna Fitzpatrick APRN.HIGHER LEVEL TEACHING ASSISTANT [address] [place] [address] Sales Outfitter Family Medicine 02/28/24 Elvis Kearney APRN.HIGHER LEVEL TEACHING ASSISTANT [address] [place] [address] [facility] 03/08/24 Silk Trimmer Relationship Specialty Start Date End Date Stas Mora MD [address] [place] [address] PCP - General 08/02/08, Pharmacist [address] [place] [address] Pharmacist Pharmacy 10/19/19 Jenna Fitzpatrick APRN.HIGHER LEVEL TEACHING ASSISTANT [address] [place] [address] Sales Outfitter Family Medicine 02/28/24 Elvis Kearney APRN.HIGHER LEVEL TEACHING ASSISTANT [address] [place] [address] Sales Outfitter Family Medicine 03/08/24 Silk Trimmer Relationship Specialty Start Date End Date Stas Mora MD [address] [place] [address] PCP - General 08/02/08, Pharmacist [address]80 [place] [address] Pharmacist Pharmacy 10/19/19 Jenna Fitzpatrick DAIRY PROCESSING EQUIPMENT OPERATOR.HIGHER LEVEL TEACHING ASSISTANT [address] [place] [address] Sales Outfitter Family Medicine 02/28/24 Elvis Kearney DAIRY PROCESSING EQUIPMENT OPERATOR.HIGHER LEVEL TEACHING ASSISTANT [address] [place] [address] Sales Outfitter Family Medicine 03/08/24 Silk Trimmer Relationship Specialty Start Date End Date Stas Mora MD [address] [place] [address] PCP - General 08/02/08, Pharmacist [id number] [place] [address] Pharmacist Pharmacy 10/19/19 Jenna Fitzpatrick DAIRY PROCESSING EQUIPMENT OPERATOR.HIGHER LEVEL TEACHING ASSISTANT [address] [place] [address] Sales Outfitter Family Medicine 02/28/24 Elvis Kearney DAIRY PROCESSING EQUIPMENT OPERATOR.HIGHER LEVEL TEACHING ASSISTANT [address] [place] [address] Sales Outfitter Family Medicine 03/08/24 Silk Trimmer Relationship Specialty Start Date End Date Stas Mora MD [address] [place] [address] PCP - General 08/02/08, Pharmacist [id number] [place] [address] Pharmacist Pharmacy 10/19/19 Elvis Kearney APRN.HIGHER LEVEL TEACHING ASSISTANT [address] [facility] [place] [address] Count Includes [facility] 03/08/24 Silk Trimmer Relationship Specialty Start Date End Date Stas Mora MD [address] [facility] [place] [address] PCP - General 08/02/08, Pharmacist [id number] [place] [address] Pharmacist Pharmacy 10/19/19 Elvis Kearney, JETHRO.HIGHER LEVEL TEACHING ASSISTANT [address] [place] [address] Count Includes [facility] 03/08/24 Team Status: Active Member Role [...] Provider Active Sta rt: September 06, 2024 Silk Trimmer Relationship Specialty Start Date End Date Stas Mora MD [address] [place], [place] [id number] PCP - General 08/02/08 13, Pharmacist [id number] [place] [address] Pharmacist Pharmacy 10/19/19 Elvis Kearney APRN.HIGHER LEVEL TEACHING ASSISTANT [address] [place], [place] [id number] Sales Outfitter Family Medicine 03/08/24 Team Status: Active Member [...] Provider Active Start: September 02, 2024 Dr. Ktahy Wells MD Other Provider Active St art: [...] Provider Active Start: September 06, 2024 Dr. Inedrjit Gillespie MD Emergency Provider [...] End: September 07, 2024 Halina Carmona NP, EMAIL DEPLOYMENT SPECIALIST-C Attending Provider Active Start: September 07, 2024 [...] 2024 End: September 08, 2024 Halina Carmona EMAIL DEPLOYMENT SPECIALIST, EMAIL DEPLOYMENT SPECIALIST-C Attending Provider Active Start: September 08, 2024 [...] 2024 End: September 30, 2024 Halina Carmona EMAIL DEPLOYMENT SPECIALIST, EMAIL DEPLOYMENT SPECIALIST-C Attending Provider Active Start: September 30, 2024 [...] End: October 20, 2024 Halina Carmona NP, EMAIL DEPLOYMENT SPECIALIST-C Attending Provider Active Start: October 20, 2024 [...] End: September 30, 2024 Halina Carmona NP EMAIL DEPLOYMENT SPECIALIST-C Attending Provider Active Start: September 30, 2024 [...] End: October 20, 2024 Halina Carmona NP, EMAIL DEPLOYMENT SPECIALIST-C Attending Provider Active Start: October 20, 2024 [...] 2024 End: September 30, 2024 Halina Carmona EMAIL DEPLOYMENT SPECIALIST, EMAIL DEPLOYMENT SPECIALIST-C Attending physician Active Start: September 30, 2024 [...] End: October 20, 2024 Halina Carmona NP EMAIL DEPLOYMENT SPECIALIST-C Attending physician Active Start: October 20, 2024 [...] End: November 24, 2024 Halina Carmona NP EMAIL DEPLOYMENT SPECIALIST-C Attending physician Active Start: November 24, 2024 [...] BE BASED ON THE PRIMARY CLINICAL RECORDS. [employer] provides no warranty or guarantee of the accuracy or completeness of information in this document.
[2025-03-06 07:44] LABS: Cholesterol 74 mg/dL (<=200); Low Density Lipoprotein Calc. 31 mg/dL; Triglycerides 96 mg/dL; Very Low Density Lipoprotein 19 mg/dL (5-40); cholesterol:hdl ratio screen 3.12
== END ==
LOC: OLS.WHLCAR 04:00
PROVIDERS: PCP Family Medicine; Referring Provider Internal Medicine; Visit Provider Internal Medicine
DX: F03.918 Unspecified dementia, unspecified severity, with other behavioral disturbance (principal); I48.91 Unspecified atrial fibrillation; I10 Essential (primary) hypertension; I25.10 Atherosclerotic heart disease of native coronary artery without angina pectoris; E78.5 Hyperlipidemia, unspecified
CPT/HCPCS: 36415; 80061

== ENCOUNTER → 2025-03-20 | Outpatient (REF) | payer MEDICARE, SELFPAY ==
--- OUTSIDE RECORDS SUMMARY | 2025-03-20 04:11 | XMS RPT_ITS | CCD ---
Author Organization [facility] Inform ion Partnership [facility] Care Team Providers Care Fermentation Scientist Name Role Phone TEE, DARRELL E Unavailable [...] Dr. Stas Mora Primary Care Provider [phone] Dr. Inderjit Gillespie Emergency Provider Dr. Dirk [...] Unavailable STERLING LYNCH DO Attending Unavailable Tannhof INSTRUMENT REPAIR SPECIALIST.KITCHENWHERE MAKER, Jenna Unavailable Caio INSTRUMENT REPAIR SPECIALIST.KITCHENWHERE MAKER, Elvis Unavailable LUCIANA CISNEROS Referring Unavailable STAS MORA Primary Care Unavailable Tannhof INSTRUMENT REPAIR SPECIALIST.KITCHENWHERE MAKER, Jenna Unavailable Unavail able Tannhof INSTRUMENT REPAIR SPECIALIST.KITCHENWHERE MAKER, Jenna Unavailable Morgan POLANCO, Dr. Ruiz Primary Care Provider [phone] Jose Miguel POLANCO, Dr. Jansen Emergency Provider [...] Curtis MD, Dr. Lucas Attending Physician Kristine TRAINING PROGRAM MANAGER-CHalina Attending Physician Oleghe OLS, Efewongbe Attending Unavailabl [...] Oleghe OLS, Efewongbe Attending Unavailabl e Elderbrock, Sats Primary Care Unavailable Oleghe OLS, Efewongbe Attending [...] Oleghe OLS, Efewongbe Attending Unavailabl e Tickton TRAINING PROGRAM MANAGER, Halina Attending Unavailable Elderbrock, Stas Primary Care Unavailable [place] TRAINING PROGRAM MANAGER, Halina Attending Unavailable Elderbrock, Stas Primary Care Unavailable [place] TRAINING PROGRAM MANAGER, Halina Attending Unavailable Elderbrock, Stas Primary Care Unavailable [place] TRAINING PROGRAM MANAGER, Halina Attending Unavailable Elderbrock, Stas Primary Care Unavailable Koram, Kathy Monisha Consulting Unavailable Koram, Kathy Monisha Attending Unavailable Koram, Kathy Monisha Admitting Unavailable Elderbrock, Stas Primary Care Unavailable Kathy Wells Attending Unavailable Kristine TRAINING PROGRAM MANAGER, Halina Attending Unavailable Elderbrock, Stas Primary Care [...] ELDERBROCK, STAS D Primary Care Unavailable GANTA, ULCIANA Attending Unavailable ELDERBROCK, STAS Maya Primary Care [...] unspecified vessel or lesion type, unspecified whether [place] or transplanted heart Take 1 tablet by [...] hydrochloride 10 mg oral tablet (20 sources) A-jjzwid-E-aspartate Receptor Antagonist Start: 06-02-19 End: 11-29-19 take 1 tablet by mouth twice daily metoprolol tartrate 50 mg oral tablet (1 source) beta-Adrenergic Jazmin Start: 01-02-20 Lopressor 50 mg oral tablet Dose : 25 mg = 0.5 tab(s), PO, BID, 0 Refill(s), current med (Hx) Start Date: 01/01/06 Status: Ordered polyethylene glycol [id number] [id number] mg powder for oral solution (12 sources) [...] on above: Take 1 capsule by mo [facility] daily at bedtime. 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; Translations: [Long-term (current) [...] Test Name Value Interpretation Reference Range Facility [facility] 01-19-2025 [facility] Letter Text Normal [facility] normalized rat io (INR) measurement by fingerstickOrdered By: Shayy Curtis on 01-10-2025 INR Coag (BldC) [Relative time] 1.9 [facility] Comment on above: Critical Value > 4.0 Whole blood prothrombin time Ordered By: Shayy Curtis on 01-10-2025 PT Coag (Bld) [Time] 21.0 s High 11.7-14.9 [facility] Absolute lymphocyte countOrd ered By: Shayy Curtis on 12-21-2024 Lymphocytes Auto (Unsp spec) [#/Vol] 1.31 10*3/uL 0.83-4.51 [facility] Absolute neutrophil countOrd ered By: Shayy Curtis on 12-21-2024 Neutrophils (Bld) [#/Vol] 3.6 10*3/uL 2.0-7.7 [facility] Anion gap in Serum or Plasma Ordered By: Shayy Curtis on 12-21-2024 Anion gap [Moles/Vol] 9 mmol/L 5-15 [facility] Automated lymphocyte count a s percentage of total leukocytesOrdered By: Shayy Curtis on 12-21-2024 Lymphocytes/100 WBC Auto (Unsp spec) 23.0 % 19-41 [facility] BUN/creatinine ratioOrdered By: Shayy Curtis on 12-21-2024 Urea nitrogen/Creatinine [Mass ratio] 32.5 mg/mg High 10-20 [facility] Basophil percentageOrdered B y: Shayy Curtis on 12-21-2024 Basophils/100 WBC (Bld) 0.7 % 0-1 [facility] Carbon dioxide, total [Moles /volume] in Central venous bloodOrdered By: Shayy Curtis on 12-21-2024 CO2 [Moles/Vol] 25.8 mmol/L 21.0-32.0 [facility] Chloride assayOrdered By: Hung Curtis on 12-21-2024 Chloride [Moles/Vol] 107 mmol/L 98-108 [facility] Eosinophil percentageOrdered By: Shayy Curtis on 12-21-2024 Eosinophils/100 WBC (Bld) 2.3 % 0-5 [facility] Erythrocyte distribution wid th ratioOrdered By: Shayy Curtis on 12-21-2024 Erythrocyte distribution width (RBC) [Ratio] 15.9 % High 11.6-14.6 [facility] Erythrocyte distribution wid th standard deviationOrdered By: Shayy Curtis on 12-21-2024 Erythrocyte distribution width (RBC) [Ratio] 49.5 fl High 35.1-43.9 [facility] Glomerular filtration rate ( GFR) estimation/1.73 sq m using serum, plasma, or whole bOrdered By: Shayy Curtis on 12-21-2024 GFR/1.73 sq M.predicted among non-blacks MDRD (S/P/Bld) [Vol rate/Area] 90 mL/min/{1.73_m2} >60 [facility] Comment on above: mL/min/1.73m2 CKD-EP I Creatinine Equation (2020) Hematocrit Auto (Bld) [Volum e fraction]Ordered By: Shayy Curtis on 12-21-2024 Hematocrit (Bld) [Volume fraction] 34.9 % Low 40-54 [facility] Hemoglobin measurementOrdere d By: Shayy Curtis on 12-21-2024 Hemoglobin (Bld) [Mass/Vol] 10.6 g/dL Low 13.0-16.5 [facility] Immature granulocytes/100 WB C Auto (Bld)Ordered By: Shayy Curtis on 12-21-2024 Immature granulocytes/100 WBC (Bld) 0.200 % 0.0-0.9 [facility] Comment on above: IG% - Immature Granu locytes (promyelocytes, myelocytes and metamyelocytes) > 1% indicates that a LEFT SHIFT is Present. MCV (mean corpuscular volume ) determinationOrdered By: Shayy Curtis on 12-21-2024 MCV (RBC) [Entitic vol] 84.5 fL 80-94 [facility] Mean corpuscular hemoglobin (MCH) determinationOrdered By: baldomero Curtis on 12-21-2024 MCH (RBC) [Entitic mass] 25.7 pg Low 27.0-32.0 [facility] Mean corpuscular hemoglobin concentration (MCHC) determinationOrdered By: Shayy Curtis on 12-21-2024 MCHC (RBC) [Mass/Vol] 30.4 g/dL Low 32-36 [facility] Mean platelet volume determi nationOrdered By: Shayy Curtis on 12-21-2024 Platelet mean volume (Bld) [Entitic vol] 10.9 fL 6.2-12.0 [facility] Monocyte percentageOrdered B y: Shayy Curtis on 12-21-2024 Monocytes/100 WBC (Bld) 10.5 % High 0-10 [facility] Neutrophil percentageOrdered By: Shayy Curtis on 12-21-2024 Neutrophils/100 WBC (Bld) 63.3 % 47-70 [facility] Nucleated red blood cell per centageOrdered By: Shayy Curtis on 12-21-2024 Nucleated RBC/100 WBC (Bld) [Ratio] 0 % 0-5 [facility] Platelet countOrdered By: Hung Curtis on 12-21-2024 Platelets (Bld) [#/Vol] 217 10*3/uL 150-450 [facility] Potassium measurement (mass/ volume)Ordered By: Shayy Curtis on 12-21-2024 Potassium (Unsp spec) [Mass/Vol] 3.8 mmol/L 3.3-5.1 [facility] RBC Auto (Bld) [#/Vol]Ordere d By: Shayy Curtis on 12-21-2024 RBC (Bld) [#/Vol] 4.13 10*6/uL Low 4.6-6.2 [facility] Serum creatinine measurement (mass/volume)Ordered By: Shayy Curtis on 12-21-2024 Creatinine [Mass/Vol] 0.66 mg/dL Low 0.70-1.20 [facility] Serum glucose measurement (m ass/volume)Ordered By: Shayy Curtis on 12-21-2024 Glucose [Mass/Vol] 86 mg/dL 70-99 [facility] Serum or plasma calcium alvaro urement (mass/volume)Ordered By: Shayy Curtis on 12-21-2024 Calcium [Mass/Vol] 8.6 mg/dL 7.6-11.0 [facility] Serum or plasma urea nitroge n measurement (mass/volume)Ordered By: Shayy Curtis on 12-21-2024 Urea nitrogen [Mass/Vol] 22 mg/dL High 4-19 [facility] Sodium levelOrdered By: Latrice Curtis on 12-21-2024 Sodium [Moles/Vol] 142 mmol/L 133-145 [facility] White blood cell (WBC) count Ordered By: Shayy Curtis on 12-21-2024 WBC (Bld) [#/Vol] 5.7 10*3/uL 4.4-11.0 [facility] normalized rat io (INR) calculationOrdered By: Shayy Curtis on 12-14-2024 INR Coag (Bld) [Relative time] 2.5 {INR} [facility] Prothrombin timeOrdered By: Shayy Curtis on 12-14-2024 PT Coag (PPP) [Time] 27.6 s High 11.7-14.9 [facility] normalized rat io (INR) measurement by fingerstickOrdered By: Shayy Curtis on 11-30-2024 INR Coag (BldC) [Relative time] 2.0 [facility] Comment on above: Critical Value > 4.0 Whole blood prothrombin time Ordered By: Shayy Curtis on 11-30-2024 PT Coag (Bld) [Time] 22.0 s High 11.7-14.9 [facility] Bilirubin directOrdered By: Shayy Curtis on 11-25-2024 Bilirubin.direct [Mass/Vol] 0.32 mg/dL High 0.00-0.30 [facility] Bilirubin, totalOrdered By: Shayy Curtis on 11-25-2024 Bilirubin [Mass/Vol] 0.63 mg/dL 0.00-1.30 [facility] Calculated very low density lipoprotein (VLDL) cholesterol measurementOrdered By: Shayy Curtis on 11-25-2024 Calculated very low density lipoprotein (VLDL) cholesterol measurement 10 mg/dL 5-40 [facility] LDL calc ser/plasOrdered By: Shayy Curtis on 11-25-2024 Cholesterol in LDL [Mass/Vol] 41 mg/dL [facility] Comment on above: Wafdzpoion=518-668 m g/dL & Higher Kvck=085 mg/dL or greaterFriedwald Equation for LDL-C Laboratory - Chemistry and C hemistry - challengeOrdered By: Shayy Curtis on 11-25-2024 AST [Catalytic activity/Vol] 24 U/L <38 [facility] Screening total cholesterol/ high density lipoprotein (HDL) cholesterol ratioOrdered By: Shayy Curtis on 11-25-2024 Cholesterol.total/Cho lesterol in HDL [Mass ratio] 2.59 {ratio} [facility] Serum globulin measurementOr dered By: Shayy Curtis on 11-25-2024 Globulin (S) [Mass/Vol] 2.3 g/dL 2.2-4.2 [facility] Serum or plasma alanine franks otransferase (ALT) measurementOrdered By: Shayy Curtis on 11-25-2024 ALT [Catalytic activity/Vol] 19 U/L <47 [facility] Serum or plasma albumin alvaro urement (mass/volume)Ordered By: Shayy Curtis on 11-25-2024 Albumin [Mass/Vol] 3.6 g/dL 3.4-4.8 [facility] Serum or plasma alkaline carole sphatase measurementOrdered By: Shayy Curtis on 11-25-2024 ALP [Catalytic activity/Vol] 119 U/L 40-129 [facility] Serum or plasma cholesterol in HDL measurement (mass/volume)Ordered By: Shayy Curtis on 11-25-2024 Cholesterol in HDL [Mass/Vol] 32 mg/dL Low >40 [facility] Comment on above: National Cholesterol Education Program (NCEP) guidelines:<40 mg/dL: Low HDL-cholesterol (major risk factor for CHD)>= 60 mg/dL: High HDL-cholesterol (negative risk factor for CHD)HDL-cholesterol is affected by a number of factors, e.g. smoking, exercise, hormones, sex and age. Serum or plasma cholesterol measurement (mass/volume)Ordered By: Shayy Curtis on 11-25-2024 Cholesterol [Mass/Vol] 83 mg/dL <201 [facility] Comment on above: Cholesterol level, D esirable <200 mg/dLBorderline high cholesterol 200-239 mg/dLHigh cholesterol >=240 mg/dLRecommendations of the NCEP Adult Treatment Panel for the following risk-cutoff thresholds for the [place] population. Total proteinOrdered By: Yazan Curtis on 11-25-2024 Protein [Mass/Vol] 5.8 g/dL Low 5.9-8.4 [facility] Triglycerides measurementOrd ered By: Shayy Curtis on 11-25-2024 Triglyceride [Mass/Vol] 49 mg/dL <199 [facility] Comment on above: The drugs N-Acetylcy steine and Metamizole may falsely depress this assay. Normal range: <150 mg/dLBorderline High: 150-199 mg/dLHigh: 200-499 mg/dLVery High: >500 mg/dL Absolute lymphocyte countOrd ered By: Shayy Curtis on 11-23-2024 Lymphocytes Auto (Unsp spec) [#/Vol] 1.15 10*3/uL 0.83-4.51 [facility] Absolute neutrophil countOrd ered By: Shayy Curtis on 11-23-2024 Neutrophils (Bld) [#/Vol] 4.4 10*3/uL 2.0-7.7 [facility] Anion gap in Serum or Plasma Ordered By: Shayy Curtis on 11-23-2024 Anion gap [Moles/Vol] 10 mmol/L 5-15 [facility] Automated lymphocyte count a s percentage of total leukocytesOrdered By: Shayy Curtis on 11-23-2024 Lymphocytes/100 WBC Auto (Unsp spec) 17.5 % Low 19-41 [facility] BUN/creatinine ratioOrdered By: Shayy Curtis on 11-23-2024 Urea nitrogen/Creatinine [Mass ratio] 23.9 mg/mg High 10-20 [facility] Basophil percentageOrdered B y: Shayy Curtis on 11-23-2024 Basophils/100 WBC (Bld) 0.9 % 0-1 [facility] Carbon dioxide, total [Moles /volume] in Central venous bloodOrdered By: Shayy Curtis on 11-23-2024 CO2 [Moles/Vol] 23.5 mmol/L 21.0-32.0 [facility] Chloride assayOrdered By: Hung Curtis on 11-23-2024 Chloride [Moles/Vol] 105 mmol/L 98-108 [facility] Eosinophil percentageOrdered By: baldomero Curtis on 11-23-2024 Eosinophils/100 WBC (Bld) 2.9 % 0-5 [facility] Erythrocyte distribution wid th ratioOrdered By: Shayy Curtis on 11-23-2024 Erythrocyte distribution width (RBC) [Ratio] 16.9 % High 11.6-14.6 [facility] Erythrocyte distribution wid th standard deviationOrdered By: Shayy Curtis on 11-23-2024 Erythrocyte distribution width (RBC) [Ratio] 50.4 fl High 35.1-43.9 [facility] Glomerular filtration rate ( GFR) estimation/1.73 sq m using serum, plasma, or whole bOrdered By: Shayy Curtis on 11-23-2024 GFR/1.73 sq M.predicted among non-blacks MDRD (S/P/Bld) [Vol rate/Area] 90 mL/min/{1.73_m2} >60 [facility] Comment on above: mL/min/1.73m2 CKD-EP I Creatinine Equation (2020) Hematocrit Auto (Bld) [Volum e fraction]Ordered By: Shayy Curtis on 11-23-2024 Hematocrit (Bld) [Volume fraction] 36.3 % Low 40-54 [facility] Hemoglobin measurementOrdere d By: Shayy Curtis on 11-23-2024 Hemoglobin (Bld) [Mass/Vol] 11.6 g/dL Low 13.0-16.5 [facility] Immature granulocytes/100 WB C Auto (Bld)Ordered By: Shayy Curtis 11-23-2024 Immature granulocytes/100 WBC (Bld) 0.300 % 0.0-0.9 [facility] Comment on above: IG% - Immature Granu locytes (promyelocytes, myelocytes and metamyelocytes) > 1% indicates that a LEFT SHIFT is Present. International normalized rat io (INR) calculationOrdered By: Shayy Curtis on 11-23-2024 INR Coag (Bld) [Relative time] 1.5 {INR} [facility] MCV (mean corpuscular volume ) determinationOrdered By: Shayy Curtis 11-23-2024 MCV (RBC) [Entitic vol] 82.1 fL 80-94 [facility] Mean corpuscular hemoglobin (MCH) determinationOrdered By: Shayy Curtis on 11-23-2024 MCH (RBC) [Entitic mass] 26.2 pg Low 27.0-32.0 [facility] Mean corpuscular hemoglobin concentration (MCHC) determinationOrdered By: Shayy Curtis on 11-23-2024 MCHC (RBC) [Mass/Vol] 32.0 g/dL 32-36 [facility] Mean platelet volume determi nationOrdered By: Shayy Curtis on 11-23-2024 Platelet mean volume (Bld) [Entitic vol] 10.0 fL 6.2-12.0 [facility] Monocyte percentageOrdered B y: Shayy Curtis on 11-23-2024 Monocytes/100 WBC (Bld) 11.3 % High 0-10 [facility] Neutrophil percentageOrdered By: Shayy Curtis on 11-23-2024 Neutrophils/100 WBC (Bld) 67.1 % 47-70 [facility] Nucleated red blood cell per centageOrdered By: Shayy Curtis on 11-23-2024 Nucleated RBC/100 WBC (Bld) [Ratio] 0 % 0-5 [facility] Platelet countOrdered By: Hung Curtis on 11-23-2024 Platelets (Bld) [#/Vol] 245 10*3/uL 150-450 [facility] Potassium measurement (mass/ volume)Ordered By: Shayy Curtis on 11-23-2024 Potassium (Unsp spec) [Mass/Vol] 4.0 mmol/L 3.3-5.1 [facility] Prothrombin timeOrdered By: Shayy Curtis on 11-23-2024 PT Coag (PPP) [Time] 17.9 s High 11.7-14.9 [facility] RBC Auto (Bld) [#/Vol]Ordere d By: Shayy Curtis on 11-23-2024 RBC (Bld) [#/Vol] 4.42 10*6/uL Low 4.6-6.2 [facility] Serum creatinine measurement (mass/volume)Ordered By: Shayy Curtis on 11-23-2024 Creatinine [Mass/Vol] 0.65 mg/dL Low 0.70-1.20 [facility] Serum glucose measurement (m ass/volume)Ordered By: Shayy Curtis on 11-23-2024 Glucose [Mass/Vol] 103 mg/dL High 70-99 [facility] Serum or plasma calcium alvaro urement (mass/volume)Ordered By: Shayy Curtis on 11-23-2024 Calcium [Mass/Vol] 8.9 mg/dL 7.6-11.0 [facility] Serum or plasma urea nitroge n measurement (mass/volume)Ordered By: Shayy Curtis on 11-23-2024 Urea nitrogen [Mass/Vol] 16 mg/dL 4-19 [facility] Sodium levelOrdered By: Latrice simonmaira Ever on 11-23-2024 Sodium [Moles/Vol] 139 mmol/L 133-145 [facility] White blood cell (WBC) count Ordered By: Shayy Curtis on 11-23-2024 WBC (Bld) [#/Vol] 6.6 10*3/uL 4.4-11.0 [facility] Absolute lymphocyte countOrd ered By: Shayy Curtis on 11-02-2024 Lymphocytes Auto (Unsp spec) [#/Vol] 1.10 10*3/uL 0.83-4.51 [facility] Absolute neutrophil countOrd ered By: Shayy Curtis on 11-02-2024 Neutrophils (Bld) [#/Vol] 6.2 10*3/uL 2.0-7.7 [facility] Anion gap in Serum or Plasma Ordered By: Shayy Curtis on 11-02-2024 Anion gap [Moles/Vol] 10 mmol/L 5-15 [facility] Automated lymphocyte count a s percentage of total leukocytesOrdered By: Shayy Curtis on 11-02-2024 Lymphocytes/100 WBC Auto (Unsp spec) 13.5 % Low 19-41 [facility] BUN/creatinine ratioOrdered By: Shayy Curtis on 11-02-2024 Urea nitrogen/Creatinine [Mass ratio] 30.4 mg/mg High 10-20 [facility] Basophil percentageOrdered B y: Shayy Curtis on 11-02-2024 Basophils/100 WBC (Bld) 0.5 % 0-1 [facility] Carbon dioxide, total [Moles /volume] in Central venous bloodOrdered By: Shayy Curtis on 11-02-2024 CO2 [Moles/Vol] 22.3 mmol/L 21.0-32.0 [facility] Chloride assayOrdered By: Hung Curtis on 11-02-2024 Chloride [Moles/Vol] 106 mmol/L 98-108 [facility] Eosinophil percentageOrdered By: Shayy Curtis on 11-02-2024 Eosinophils/100 WBC (Bld) 1.4 % 0-5 [facility] Erythrocyte distribution wid th ratioOrdered By: Shayy Curtis on 11-02-2024 Erythrocyte distribution width (RBC) [Ratio] 18.0 % High 11.6-14.6 [facility] Erythrocyte distribution wid th standard deviationOrdered By: Shayy Curtis on 11-02-2024 Erythrocyte distribution width (RBC) [Ratio] 53.7 fl High 35.1-43.9 [facility] Glomerular filtration rate ( GFR) estimation/1.73 sq m using serum, plasma, or whole bOrdered By: Shayy Curtis on 11-02-2024 GFR/1.73 sq M.predicted among non-blacks MDRD (S/P/Bld) [Vol rate/Area] 91 mL/min/{1.73_m2} >60 [facility] Comment on above: mL/min/1.73m2 CKD-EP I Creatinine Equation (2020) Hematocrit Auto (Bld) [Volum e fraction]Ordered By: Shayy Curtis on 11-02-2024 Hematocrit (Bld) [Volume fraction] 35.3 % Low 40-54 [facility] Hemoglobin measurementOrdere d By: Shayy Curtis on 11-02-2024 Hemoglobin (Bld) [Mass/Vol] 11.2 g/dL Low 13.0-16.5 [facility] Immature granulocytes/100 WB C Auto (Bld)Ordered By: Shayy Curtis on 11-02-2024 Immature granulocytes/100 WBC (Bld) 0.400 % 0.0-0.9 [facility] Comment on above: IG% - Immature Granu locytes (promyelocytes, myelocytes and metamyelocytes) > 1% indicates that a LEFT SHIFT is Present. MCV (mean corpuscular volume ) determinationOrdered By: Hungbaldomero Curtis on 11-02-2024 MCV (RBC) [Entitic vol] 81.5 fL 80-94 [facility] Mean corpuscular hemoglobin (MCH) determinationOrdered By: [facility] Sal[facility]art[facility] on 11-02-2024 MCH (RBC) [Entitic mass] 25.9 pg Low 27.0-32.0 [facility] Mean corpuscular hemoglobin concentration (MCHC) determinationOrdered By: holliemorrillirlanda Salazartomyradha on 11-02-2024 MCHC (RBC) [Mass/Vol] 31.7 g/dL Low 32-36 [facility] Mean platelet volume determi nationOrdered By: holliemorrillirlanda Salazartomyradha on 11-02-2024 Platelet mean volume (Bld) [Entitic vol] 10.3 fL 6.2-12.0 [facility] Monocyte percentageOrdered B y: Shayy Curtis on 11-02-2024 Monocytes/100 WBC (Bld) 7.7 % 0-10 [facility] Neutrophil percentageOrdered By: [facility] Martinradha on 11-02-2024 Neutrophils/100 WBC (Bld) 76.5 % High 47-70 [facility] Nucleated red blood cell per centageOrdered By: holliemorrillirlanad Salazartomyradha on 11-02-2024 Nucleated RBC/100 WBC (Bld) [Ratio] 0 % 0-5 [facility] Platelet countOrdered By: holliemorrillirlanda Salazartomyradha on 11-02-2024 Platelets (Bld) [#/Vol] 225 10*3/uL 150-450 [facility] Potassium measurement (mass/ volume)Ordered By: holliemorrillirlanda Curtis on 11-02-2024 Potassium (Unsp spec) [Mass/Vol] 3.9 mmol/L 3.3-5.1 [facility] RBC Auto (Bld) [#/Vol]Ordere d By: Shayy Curtis on 11-02-2024 RBC (Bld) [#/Vol] 4.33 10*6/uL Low 4.6-6.2 [facility] Serum creatinine measurement (mass/volume)Ordered By: Shayy Curtis on 11-02-2024 Creatinine [Mass/Vol] 0.62 mg/dL Low 0.70-1.20 [facility] Serum glucose measurement (m ass/volume)Ordered By: Shayy Curtis on 11-02-2024 Glucose [Mass/Vol] 110 mg/dL High 70-99 [facility] Serum or plasma calcium alvaro urement (mass/volume)Ordered By: Shayy Curtis on 11-02-2024 Calcium [Mass/Vol] 8.7 mg/dL 7.6-11.0 [facility] Serum or plasma urea nitroge n measurement (mass/volume)Ordered By: Shayy Curtis on 11-02-2024 Urea nitrogen [Mass/Vol] 19 mg/dL 4-19 [facility] Sodium levelOrdered By: Latrice simonmaira Ever on 11-02-2024 Sodium [Moles/Vol] 139 mmol/L 133-145 [facility] White blood cell (WBC) count Ordered By: Shayy Curtis on 11-02-2024 WBC (Bld) [#/Vol] 8.1 10*3/uL 4.4-11.0 [facility] International normalized rat io (INR) measurement by fingerstickOrdered By: Shayy Curtis on 10-31-2024 INR Coag (BldC) [Relative time] 1.8 [facility] Comment on above: Critical Value > 4.0 Whole blood prothrombin time Ordered By: Shayy Curtis on 10-31-2024 PT Coag (Bld) [Time] 20.2 s High 11.7-14.9 [facility] International normalized rat io (INR) measurement by fingerstickOrdered By: Shayy Curtis on 10-06-2024 INR Coag (BldC) [Relative time] 2.1 [facility] Comment on above: Critical Value > 4.0 Whole blood prothrombin time Ordered By: Shayy Curtis on 10-06-2024 PT Coag (Bld) [Time] 22.6 s High 11.7-14.9 [facility] Absolute lymphocyte countOrd ered By: Shayy Curtis on 10-05-2024 Lymphocytes Auto (Unsp spec) [#/Vol] 1.54 10*3/uL 0.83-4.51 [facility] Absolute neutrophil countOrd ered By: Shayy Curtis on 10-05-2024 Neutrophils (Bld) [#/Vol] 4.2 10*3/uL 2.0-7.7 [facility] Anion gap in Serum or Plasma Ordered By: Shayy Curtis on 10-05-2024 Anion gap [Moles/Vol] 10 mmol/L 5-15 [facility] Automated lymphocyte count a s percentage of total leukocytesOrdered By: Shayy Curtis on 10-05-2024 Lymphocytes/100 WBC Auto (Unsp spec) 23.8 % 19-41 [facility] BUN/creatinine ratioOrdered By: baldomero Curtis on 10-05-2024 Urea nitrogen/Creatinine [Mass ratio] 18.2 mg/mg 10-20 [facility] Basophil percentageOrdered B y: Shayy Curtis on 10-05-2024 Basophils/100 WBC (Bld) 0.6 % 0-1 [facility] Carbon dioxide, total [Moles /volume] in Central venous bloodOrdered By: Shayy Curtis on 10-05-2024 CO2 [Moles/Vol] 24.6 mmol/L 21.0-32.0 [facility] Chloride assayOrdered By: Hung Curtis on 10-05-2024 Chloride [Moles/Vol] 106 mmol/L 98-108 [facility] Eosinophil percentageOrdered By: Shayy Curtis on 10-05-2024 Eosinophils/100 WBC (Bld) 1.9 % 0-5 [facility] Erythrocyte distribution wid th ratioOrdered By: Shayy Curtis on 10-05-2024 Erythrocyte distribution width (RBC) [Ratio] 18.2 % High 11.6-14.6 [facility] Erythrocyte distribution wid th standard deviationOrdered By: Shayy Curtis on 10-05-2024 Erythrocyte distribution width (RBC) [Ratio] 52.4 fl High 35.1-43.9 [facility] Glomerular filtration rate ( GFR) estimation/1.73 sq m using serum, plasma, or whole bOrdered By: Shayy Curtis on 10-05-2024 GFR/1.73 sq M.predicted among non-blacks MDRD (S/P/Bld) [Vol rate/Area] 87 mL/min/{1.73_m2} >60 [facility] Comment on above: mL/min/1.73m2 CKD-EP I Creatinine Equation (2020) Hematocrit Auto (Bld) [Volum e fraction]Ordered By: Shayy Curtis on 10-05-2024 Hematocrit (Bld) [Volume fraction] 35.0 % Low 40-54 [facility] Hemoglobin measurementOrdere d By: Shayy Curtis on 10-05-2024 Hemoglobin (Bld) [Mass/Vol] 11.0 g/dL Low 13.0-16.5 [facility] Immature granulocytes/100 WB C Auto (Bld)Ordered By: Shayy Curtis 10-05-2024 Immature granulocytes/100 WBC (Bld) 0.300 % 0.0-0.9 [facility] Comment on above: IG% - Immature Granu locytes (promyelocytes, myelocytes and metamyelocytes) > 1% indicates that a LEFT SHIFT is Present. MCV (mean corpuscular volume ) determinationOrdered By: Sahyy Curtis 10-05-2024 MCV (RBC) [Entitic vol] 78.8 fL Low 80-94 [facility] Mean corpuscular hemoglobin (MCH) determinationOrdered By: baldomero Curtis 10-05-2024 MCH (RBC) [Entitic mass] 24.8 pg Low 27.0-32.0 [facility] Mean corpuscular hemoglobin concentration (MCHC) determinationOrdered By: Shayy Curtis 10-05-2024 MCHC (RBC) [Mass/Vol] 31.4 g/dL Low 32-36 [facility] Mean platelet volume determi nationOrdered By: Shayy Curtis on 10-05-2024 Platelet mean volume (Bld) [Entitic vol] 10.3 fL 6.2-12.0 [facility] Monocyte percentageOrdered B y: Shayy Salazartomyradha on 10-05-2024 Monocytes/100 WBC (Bld) 8.5 % 0-10 [facility] Neutrophil percentageOrdered By: Shayy Salazartomyradha on 10-05-2024 Neutrophils/100 WBC (Bld) 64.9 % 47-70 [facility] Nucleated red blood cell per centageOrdered By: Shayy Salazartomyradha on 10-05-2024 Nucleated RBC/100 WBC (Bld) [Ratio] 0 % 0-5 [facility] Platelet countOrdered By: Hung hollietimmy Curtis on 10-05-2024 Platelets (Bld) [#/Vol] 235 10*3/uL 150-450 [facility] Potassium measurement (mass/ volume)Ordered By: Shayy Curtis on 10-05-2024 Potassium (Unsp spec) [Mass/Vol] 4.1 mmol/L 3.3-5.1 [facility] RBC Auto (Bld) [#/Vol]Ordere d By: Shayy Curtis on 10-05-2024 RBC (Bld) [#/Vol] 4.44 10*6/uL Low 4.6-6.2 [facility] Serum creatinine measurement (mass/volume)Ordered By: Shayy Curtis on 10-05-2024 Creatinine [Mass/Vol] 0.73 mg/dL 0.70-1.20 [facility] Serum glucose measurement (m ass/volume)Ordered By: Shayy Curtis on 10-05-2024 Glucose [Mass/Vol] 90 mg/dL 70-99 [facility] Serum or plasma calcium alvaro urement (mass/volume)Ordered By: Shayy Curtis on 10-05-2024 Calcium [Mass/Vol] 8.7 mg/dL 7.6-11.0 [facility] Serum or plasma urea nitroge n measurement (mass/volume)Ordered By: Hungbaldomero Salazartomyradha on 10-05-2024 Urea nitrogen [Mass/Vol] 13 mg/dL 4-19 [facility] Sodium levelOrdered By: Latrice warner Martintomyradha on 10-05-2024 Sodium [Moles/Vol] 140 mmol/L 133-145 [facility] White blood cell (WBC) count Ordered By: Hunghollietimmy Martinsergio on 10-05-2024 WBC (Bld) [#/Vol] 6.5 10*3/uL 4.4-11.0 [facility] International normalized rat io (INR) calculationOrdered By: Hunghollierobsonirlanda Salazartomyradha on 09-29-2024 INR Coag (Bld) [Relative time] 3.3 {INR} [facility] Prothrombin timeOrdered By: Hunghollierobsonirlanda Salazartomyradha on 09-29-2024 PT Coag (PPP) [Time] 34.4 s High 11.7-14.9 [facility] Absolute lymphocyte countOrd ered By: Hunghollierobsonirlanda Salazartomyradha on 09-28-2024 Lymphocytes Auto (Unsp spec) [#/Vol] 1.41 10*3/uL 0.83-4.51 [facility] Absolute neutrophil countOrd ered By: Hunghollierobsonirlanda Salazartomyradha on 09-28-2024 Neutrophils (Bld) [#/Vol] 4.8 10*3/uL 2.0-7.7 [facility] Anion gap in Serum or Plasma Ordered By: Hunghollietimmy Martintomyradha on 09-28-2024 Anion gap [Moles/Vol] 13 mmol/L 5-15 [facility] Automated lymphocyte count a s percentage of total leukocytesOrdered By: Hungbaldomero Salazartomyradha on 09-28-2024 Lymphocytes/100 WBC Auto (Unsp spec) 20.1 % 19-41 [facility] BUN/creatinine ratioOrdered By: baldomero Salazartomyradha on 09-28-2024 Urea nitrogen/Creatinine [Mass ratio] 19.9 mg/mg 10-20 [facility] Basophil percentageOrdered B y: Christineirlanda Salazartomyradha on 09-28-2024 Basophils/100 WBC (Bld) 0.6 % 0-1 [facility] Carbon dioxide, total [Moles /volume] in Central venous bloodOrdered By: Shayy Curtis on 09-28-2024 CO2 [Moles/Vol] 21.1 mmol/L 21.0-32.0 [facility] Chloride assayOrdered By: Hung Curtis on 09-28-2024 Chloride [Moles/Vol] 105 mmol/L 98-108 [facility] Eosinophil percentageOrdered By: Shayy Curtis on 09-28-2024 Eosinophils/100 WBC (Bld) 2.0 % 0-5 [facility] Erythrocyte distribution wid th ratioOrdered By: baldomero Curtis on 09-28-2024 Erythrocyte distribution width (RBC) [Ratio] 18.3 % High 11.6-14.6 [facility] Erythrocyte distribution wid th standard deviationOrdered By: holliemorrillirlanda Curtis on 09-28-2024 Erythrocyte distribution width (RBC) [Ratio] 52.8 fl High 35.1-43.9 [facility] Glomerular filtration rate ( GFR) estimation/1.73 sq m using serum, plasma, or whole bOrdered By: Shayy Curtis on 09-28-2024 GFR/1.73 sq M.predicted among non-blacks MDRD (S/P/Bld) [Vol rate/Area] 88 mL/min/{1.73_m2} >60 [facility] Comment on above: mL/min/1.73m2 CKD-EP I Creatinine Equation (2020) Hematocrit Auto (Bld) [Volum e fraction]Ordered By: Shayy Curtis on 09-28-2024 Hematocrit (Bld) [Volume fraction] 37.0 % Low 40-54 [facility] Hemoglobin measurementOrdere d By: Shayy Curtis on 09-28-2024 Hemoglobin (Bld) [Mass/Vol] 11.5 g/dL Low 13.0-16.5 [facility] Immature granulocytes/100 WB C Auto (Bld)Ordered By: Shayy Curtis on 09-28-2024 Immature granulocytes/100 WBC (Bld) 0.300 % 0.0-0.9 [facility] Comment on above: IG% - Immature Granu locytes (promyelocytes, myelocytes and metamyelocytes) > 1% indicates that a LEFT SHIFT is Present. MCV (mean corpuscular volume ) determinationOrdered By: Shayy Curtis on 09-28-2024 MCV (RBC) [Entitic vol] 80.3 fL 80-94 [facility] Mean corpuscular hemoglobin (MCH) determinationOrdered By: Shayy Curtis on 09-28-2024 MCH (RBC) [Entitic mass] 24.9 pg Low 27.0-32.0 [facility] Mean corpuscular hemoglobin concentration (MCHC) determinationOrdered By: Shayy Curtis on 09-28-2024 MCHC (RBC) [Mass/Vol] 31.1 g/dL Low 32-36 [facility] Mean platelet volume determi nationOrdered By: Shayy Curtis on 09-28-2024 Platelet mean volume (Bld) [Entitic vol] 10.5 fL 6.2-12.0 [facility] Monocyte percentageOrdered B y: Shayy Curtis on 09-28-2024 Monocytes/100 WBC (Bld) 8.8 % 0-10 [facility] Neutrophil percentageOrdered By: holliemorrillirlanda Curtis on 09-28-2024 Neutrophils/100 WBC (Bld) 68.2 % 47-70 [facility] Nucleated red blood cell per centageOrdered By: Shayy Curtis on 09-28-2024 Nucleated RBC/100 WBC (Bld) [Ratio] 0 % 0-5 [facility] Platelet countOrdered By: Hung hollietimmy Curtis on 09-28-2024 Platelets (Bld) [#/Vol] 280 10*3/uL 150-450 [facility] Potassium measurement (mass/ volume)Ordered By: Shayy Curtis on 09-28-2024 Potassium (Unsp spec) [Mass/Vol] 4.0 mmol/L 3.3-5.1 [facility] RBC Auto (Bld) [#/Vol]Ordere d By: Shayy Curtis on 09-28-2024 RBC (Bld) [#/Vol] 4.61 10*6/uL 4.6-6.2 [facility] Serum creatinine measurement (mass/volume)Ordered By: Shayy Curtis on 09-28-2024 Creatinine [Mass/Vol] 0.71 mg/dL 0.70-1.20 [facility] Serum glucose measurement (m ass/volume)Ordered By: Shayy Curtis on 09-28-2024 Glucose [Mass/Vol] 91 mg/dL 70-99 [facility] Serum or plasma calcium alvaro urement (mass/volume)Ordered By: Shayy Curtis on 09-28-2024 Calcium [Mass/Vol] 8.9 mg/dL 7.6-11.0 [facility] Serum or plasma urea nitroge n measurement (mass/volume)Ordered By: Shayy Curtis on 09-28-2024 Urea nitrogen [Mass/Vol] 14 mg/dL 4-19 [facility] Sodium levelOrdered By: Latrice Curtis on 09-28-2024 Sodium [Moles/Vol] 140 mmol/L 133-145 [facility] White blood cell (WBC) count Ordered By: Shayy Curtis on 09-28-2024 WBC (Bld) [#/Vol] 7.0 10*3/uL 4.4-11.0 [facility] International normalized rat io (INR) measurement by fingerstickOrdered By: Shayy Curtis on 09-26-2024 INR Coag (BldC) [Relative time] 2.5 [facility] Comment on above: Critical Value > 4.0 Whole blood prothrombin time Ordered By: Shayy Curtis on 09-26-2024 PT Coag (Bld) [Time] 27.1 s High 11.7-14.9 [facility] International normalized rat io (INR) calculationOrdered By: Shayy Curtis on 09-23-2024 INR Coag (Bld) [Relative time] 2.0 {INR} [facility] Prothrombin timeOrdered By: Shayy Curtis on 09-23-2024 PT Coag (PPP) [Time] 23.5 s High 11.7-14.9 [facility] Absolute lymphocyte countOrd ered By: Shayy Curtis on 09-21-2024 Lymphocytes Auto (Unsp spec) [#/Vol] 1.35 10*3/uL 0.83-4.51 [facility] Absolute neutrophil countOrd ered By: holliemorrillirlanda Curtis on 09-21-2024 Neutrophils (Bld) [#/Vol] 4.3 10*3/uL 2.0-7.7 [facility] Anion gap in Serum or Plasma Ordered By: Latricemorrillirlanda Curtis on 09-21-2024 Anion gap [Moles/Vol] 12 mmol/L 5-15 [facility] Automated lymphocyte count a s percentage of total leukocytesOrdered By: Latricemorrillirlanda Curtis on 09-21-2024 Lymphocytes/100 WBC Auto (Unsp spec) 21.5 % 19-41 [facility] BUN/creatinine ratioOrdered By: [facility] on 09-21-2024 Urea nitrogen/Creatinine [Mass ratio] 15.8 mg/mg 10-20 [facility] Basophil percentageOrdered B y: Shayy Curtis on 09-21-2024 Basophils/100 WBC (Bld) 0.8 % 0-1 [facility] CNPNon 09-21-2024 [facility] ROBY [facility]OR[facility] ([id number]) 1935 M Date Time Provider Department 09/21/24 [facility] During your visit today, we recorded the following information about you: Petty Vargas 09/21/2024 9:23 AM Signed [facility] rehabilitation. 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 Encounter Status:Closed by MARTA PALACIO on 09/22/24 Normal [facility] Carbon dioxide, total [Moles /volume] in Central venous bloodOrdered By: Shayy Curtis on 09-21-2024 CO2 [Moles/Vol] 23.2 mmol/L 21.0-32.0 [facility] Chloride assayOrdered By: Hung Curtis on 09-21-2024 Chloride [Moles/Vol] 104 mmol/L 98-108 [facility] Eosinophil percentageOrdered By: Shayy Curtis on 09-21-2024 Eosinophils/100 WBC (Bld) 1.3 % 0-5 [facility] Erythrocyte distribution wid th ratioOrdered By: Shayy Curtis on 09-21-2024 Erythrocyte distribution width (RBC) [Ratio] 18.0 % High 11.6-14.6 [facility] Erythrocyte distribution wid th standard deviationOrdered By: Shayy Curtis on 09-21-2024 Erythrocyte distribution width (RBC) [Ratio] 50.8 fl High 35.1-43.9 [facility] Glomerular filtration rate ( GFR) estimation/1.73 sq m using serum, plasma, or whole bOrdered By: Shayy Curtis on 09-21-2024 GFR/1.73 sq M.predicted among non-blacks MDRD (S/P/Bld) [Vol rate/Area] 88 mL/min/{1.73_m2} >60 [facility] Comment on above: mL/min/1.73m2 CKD-EP I Creatinine Equation (2020) Hematocrit Auto (Bld) [Volum e fraction]Ordered By: Shayy Curtis on 09-21-2024 Hematocrit (Bld) [Volume fraction] 37.5 % Low 40-54 [facility] Hemoglobin measurementOrdere d By: Shayy Curtis on 09-21-2024 Hemoglobin (Bld) [Mass/Vol] 11.6 g/dL Low 13.0-16.5 [facility] Immature granulocytes/100 WB C Auto (Bld)Ordered By: Shayy Curtis on 09-21-2024 Immature granulocytes/100 WBC (Bld) 0.300 % 0.0-0.9 [facility] Comment on above: IG% - Immature Granu locytes (promyelocytes, myelocytes and metamyelocytes) > 1% indicates that a LEFT SHIFT is Present. International normalized rat io (INR) calculationOrdered By: Shayy Curtis on 09-21-2024 INR Coag (Bld) [Relative time] 1.7 {INR} [facility] MCV (mean corpuscular volume ) determinationOrdered By: Shayy Curtis 09-21-2024 MCV (RBC) [Entitic vol] 78.9 fL Low 80-94 [facility] Mean corpuscular hemoglobin (MCH) determinationOrdered By: Shayy Curtis on 09-21-2024 MCH (RBC) [Entitic mass] 24.4 pg Low 27.0-32.0 [facility] Mean corpuscular hemoglobin concentration (MCHC) determinationOrdered By: Shayy Curtis on 09-21-2024 MCHC (RBC) [Mass/Vol] 30.9 g/dL Low 32-36 [facility] Mean platelet volume determi nationOrdered By: Shayy Curtis on 09-21-2024 Platelet mean volume (Bld) [Entitic vol] 10.1 fL 6.2-12.0 [facility] Monocyte percentageOrdered B y: Shayy Curtis on 09-21-2024 Monocytes/100 WBC (Bld) 8.1 % 0-10 [facility] Neutrophil percentageOrdered By: Shayy Curtis on 09-21-2024 Neutrophils/100 WBC (Bld) 68.0 % 47-70 [facility] Nucleated red blood cell per centageOrdered By: Shayy Curtis on 09-21-2024 Nucleated RBC/100 WBC (Bld) [Ratio] 0 % 0-5 [facility] Platelet countOrdered By: Hung Curtis on 09-21-2024 Platelets (Bld) [#/Vol] 318 10*3/uL 150-450 [facility] Potassium measurement (mass/ volume)Ordered By: Shayy Curtis on 09-21-2024 Potassium (Unsp spec) [Mass/Vol] 4.0 mmol/L 3.3-5.1 [facility] Prothrombin timeOrdered By: Shayy Curtis on 09-21-2024 PT Coag (PPP) [Time] 20.6 s High 11.7-14.9 [facility] RBC Auto (Bld) [#/Vol]Ordere d By: Shayy Curtis on 09-21-2024 RBC (Bld) [#/Vol] 4.75 10*6/uL 4.6-6.2 [facility] Serum creatinine measurement (mass/volume)Ordered By: Shayy Curtis on 09-21-2024 Creatinine [Mass/Vol] 0.70 mg/dL 0.70-1.20 [facility] Serum glucose measurement (m ass/volume)Ordered By: Shayy Curtis on 09-21-2024 Glucose [Mass/Vol] 101 mg/dL High 70-99 [facility] Serum or plasma calcium alvaro urement (mass/volume)Ordered By: Shayy Curtis on 09-21-2024 Calcium [Mass/Vol] 9.2 mg/dL 7.6-11.0 [facility] Serum or plasma urea nitroge n measurement (mass/volume)Ordered By: Shayy Curtis on 09-21-2024 Urea nitrogen [Mass/Vol] 11 mg/dL 4-19 [facility] Sodium levelOrdered By: Latrice simonraffiradha Curtis on 09-21-2024 Sodium [Moles/Vol] 139 mmol/L 133-145 [facility] White blood cell (WBC) count Ordered By: Shayy Curtis on 09-21-2024 WBC (Bld) [#/Vol] 6.3 10*3/uL 4.4-11.0 [facility] International normalized rat io (INR) measurement by fingerstickOrdered By: Shayy Curtis on 09-19-2024 INR Coag (BldC) [Relative time] 1.9 [facility] Comment on above: Critical Value > 4.0 Whole blood prothrombin time Ordered By: Shayy Curtis on 09-19-2024 PT Coag (Bld) [Time] 21.5 s High 11.7-14.9 [facility] International normalized rat io (INR) calculationOrdered By: Shayy Curtis on 09-15-2024 INR Coag (Bld) [Relative time] 2.1 {INR} [facility] Prothrombin timeOrdered By: Shayy Curtis on 09-15-2024 PT Coag (PPP) [Time] 24.2 s High 11.7-14.9 [facility] Absolute lymphocyte countOrd ered By: Shayy Curtis on 09-14-2024 Lymphocytes Auto (Unsp spec) [#/Vol] 1.57 10*3/uL 0.83-4.51 [facility] Absolute neutrophil countOrd ered By: Shayy Curtis on 09-14-2024 Neutrophils (Bld) [#/Vol] 5.1 10*3/uL 2.0-7.7 [facility] Anion gap in Serum or Plasma Ordered By: Shayy Curtis on 09-14-2024 Anion gap [Moles/Vol] 12 mmol/L 5-15 [facility] Automated lymphocyte count a s percentage of total leukocytesOrdered By: Shayy Curtis on 09-14-2024 Lymphocytes/100 WBC Auto (Unsp spec) 20.8 % 19-41 [facility] BUN/creatinine ratioOrdered By: Shayy Curtis on 09-14-2024 Urea nitrogen/Creatinine [Mass ratio] 21.8 mg/mg High 10-20 [facility] Basophil percentageOrdered B y: Shayy Curtis on 09-14-2024 Basophils/100 WBC (Bld) 1.1 % High 0-1 [facility] Carbon dioxide, total [Moles /volume] in Central venous bloodOrdered By: Shayy Curtis on 09-14-2024 CO2 [Moles/Vol] 21.8 mmol/L 21.0-32.0 [facility] Chloride assayOrdered By: Hung Curtis on 09-14-2024 Chloride [Moles/Vol] 107 mmol/L 98-108 [facility] Eosinophil percentageOrdered By: Shayy Curtis on 09-14-2024 Eosinophils/100 WBC (Bld) 1.7 % 0-5 [facility] Erythrocyte distribution wid th ratioOrdered By: Shayy Curtis on 09-14-2024 Erythrocyte distribution width (RBC) [Ratio] 17.7 % High 11.6-14.6 [facility] Erythrocyte distribution wid th standard deviationOrdered By: Shayy Curtis on 09-14-2024 Erythrocyte distribution width (RBC) [Ratio] 51.1 fl High 35.1-43.9 [facility] Glomerular filtration rate ( GFR) estimation/1.73 sq m using serum, plasma, or whole bOrdered By: Shayy Curtis on 09-14-2024 GFR/1.73 sq M.predicted among non-blacks MDRD (S/P/Bld) [Vol rate/Area] 87 mL/min/{1.73_m2} >60 [facility] Comment on above: mL/min/1.73m2 CKD-EP I Creatinine Equation (2020) Hematocrit Auto (Bld) [Volum e fraction]Ordered By: Shayy Curtis on 09-14-2024 Hematocrit (Bld) [Volume fraction] 34.7 % Low 40-54 [facility] Hemoglobin measurementOrdere d By: Shayy Curtis on 09-14-2024 Hemoglobin (Bld) [Mass/Vol] 10.7 g/dL Low 13.0-16.5 [facility] Immature granulocytes/100 WB C Auto (Bld)Ordered By: holliemorrillirlanda Curtis on 09-14-2024 Immature granulocytes/100 WBC (Bld) 0.400 % 0.0-0.9 [facility] Comment on above: IG% - Immature Granu locytes (promyelocytes, myelocytes and metamyelocytes) > 1% indicates that a LEFT SHIFT is Present. MCV (mean corpuscular volume ) determinationOrdered By: Shayy Curtis on 09-14-2024 MCV (RBC) [Entitic vol] 78.9 fL Low 80-94 [facility] Mean corpuscular hemoglobin (MCH) determinationOrdered By: Shayy Curtis on 09-14-2024 MCH (RBC) [Entitic mass] 24.3 pg Low 27.0-32.0 [facility] Mean corpuscular hemoglobin concentration (MCHC) determinationOrdered By: baldomero Curtis on 09-14-2024 MCHC (RBC) [Mass/Vol] 30.8 g/dL Low 32-36 [facility] Mean platelet volume determi nationOrdered By: Shayy Curtis on 09-14-2024 Platelet mean volume (Bld) [Entitic vol] 10.6 fL 6.2-12.0 [facility] Monocyte percentageOrdered B y: Shayy Curtis on 09-14-2024 Monocytes/100 WBC (Bld) 8.5 % 0-10 [facility] Neutrophil percentageOrdered By: Shayy Curtis on 09-14-2024 Neutrophils/100 WBC (Bld) 67.5 % 47-70 [facility] Nucleated red blood cell per centageOrdered By: Shayy Curtis on 09-14-2024 Nucleated RBC/100 WBC (Bld) [Ratio] 0 % 0-5 [facility] Platelet countOrdered By: Hung Curtis on 09-14-2024 Platelets (Bld) [#/Vol] 291 10*3/uL 150-450 [facility] Potassium measurement (mass/ volume)Ordered By: Shayy Curtis on 09-14-2024 Potassium (Unsp spec) [Mass/Vol] 4.0 mmol/L 3.3-5.1 [facility] RBC Auto (Bld) [#/Vol]Ordere d By: Shayy Curtis on 09-14-2024 RBC (Bld) [#/Vol] 4.40 10*6/uL Low 4.6-6.2 [facility] Serum creatinine measurement (mass/volume)Ordered By: Shayy Curtis on 09-14-2024 Creatinine [Mass/Vol] 0.74 mg/dL 0.70-1.20 [facility] Serum glucose measurement (m ass/volume)Ordered By: Shayy Curtis on 09-14-2024 Glucose [Mass/Vol] 99 mg/dL 70-99 [facility] Serum or plasma calcium alvaro urement (mass/volume)Ordered By: Shayy Curtis on 09-14-2024 Calcium [Mass/Vol] 8.6 mg/dL 7.6-11.0 [facility] Serum or plasma urea nitroge n measurement (mass/volume)Ordered By: Shayy Curtis on 09-14-2024 Urea nitrogen [Mass/Vol] 16 mg/dL 4-19 [facility] Sodium levelOrdered By: Latrice Curtis on 09-14-2024 Sodium [Moles/Vol] 141 mmol/L 133-145 [facility] White blood cell (WBC) count Ordered By: Shayy Curtis on 09-14-2024 WBC (Bld) [#/Vol] 7.5 10*3/uL 4.4-11.0 [facility] International normalized rat io (INR) measurement by fingerstickOrdered By: Shayy Curtis on 09-12-2024 INR Coag (BldC) [Relative time] 3.2 [facility] Comment on above: Critical Value > 4.0 Whole blood prothrombin time Ordered By: Shayy Curtis on 09-12-2024 PT Coag (Bld) [Time] 33.0 s High 11.7-14.9 [facility] International normalized rat io (INR) measurement by fingerstickOrdered By: Shayy Curtis on 09-08-2024 INR Coag (BldC) [Relative time] 2.2 [facility] Comment on above: Critical Value > 4.0 Prothrombin Time w/INRon INR Normal [facility] Comment on above: Result Comment: Canc elled via OM: Order cancelled - Patient discharged Performed By: #### L 300.3900 #### [facility] Laboratory [address] [place], [place], [id number] PROTIME Normal 11.7-14.9 [facility] Comment on above: Result Comment: Canc elled via OM: Order cancelled - Patient discharged Performed By: #### L 300.3900 #### [facility] Laboratory [address] [place], [place], [id number] Whole blood prothrombin time Ordered By: Shayy Curtis on 09-08-2024 PT Coag (Bld) [Time] 23.8 s High 11.7-14.9 [facility] Anion gap in Serum or Plasma Ordered By: Shayy Curtis on 09-07-2024 Anion gap [Moles/Vol] 10 mmol/L 5-15 [facility] BUN/creatinine ratioOrdered By: Shayy Curtis on 09-07-2024 Urea nitrogen/Creatinine [Mass ratio] 14.0 mg/mg 10-20 [facility] Bilirubin, totalOrdered By: Shayy Curtis on 09-07-2024 Bilirubin [Mass/Vol] 1.02 mg/dL 0.00-1.30 [facility] Calculated very low density lipoprotein (VLDL) cholesterol measurementOrdered By: Shayy Curtis on 09-07-2024 Calculated very low density lipoprotein (VLDL) cholesterol measurement 13 mg/dL 5-40 [facility] Carbon dioxide, total [Moles /volume] in Central venous bloodOrdered By: Shayy Curtis on 09-07-2024 CO2 [Moles/Vol] 25.4 mmol/L 21.0-32.0 [facility] Chloride assayOrdered By: Hung Curtis on 09-07-2024 Chloride [Moles/Vol] 104 mmol/L 98-108 [facility] Culture, Blood (WB)on 2024 CUB No growth in 5 days. Normal [facility] Comment on above: Performed By: #### M 200.1000, L509.7001, L101.9900, L501.6710 #### [facility] Laboratory [address] [place], [address] Glomerular filtration rate ( GFR) estimation/1.73 sq m using serum, plasma, or whole bOrdered By: Shayy Curtis on 09-07-2024 GFR/1.73 sq M.predicted among non-blacks MDRD (S/P/Bld) [Vol rate/Area] 88 mL/min/{1.73_m2} >60 [facility] Comment on above: mL/min/1.73m2 CKD-EP I Creatinine Equation (2020) LDL calc ser/plasOrdered By: Shayy Curtis on 09-07-2024 Cholesterol in LDL [Mass/Vol] 64 mg/dL [facility] Comment on above: Ovkmzdzfsq=253-255 m g/dL & Higher Xrpe=574 mg/dL or greater Laboratory - Chemistry and C hemistry - challengeOrdered By: Shayy Curtis on 09-07-2024 AST [Catalytic activity/Vol] 33 U/L <38 [facility] Potassium measurement (mass/ volume)Ordered By: Shayy Curtis on 09-07-2024 Potassium (Unsp spec) [Mass/Vol] 3.8 mmol/L 3.3-5.1 [facility] Prothrombin Time w/INRon INR Normal [facility] Comment on above: Result Comment: Canc elled via OM: Order cancelled - Patient discharged Performed By: #### L 300.3900 #### [facility] Laboratory [address] [place], [place], [id number] PROTIME Normal 11.7-14.9 [facility] Comment on above: Result Comment: Canc elled via OM: Order cancelled - Patient discharged Performed By: #### L 300.3900 #### [facility] Laboratory [address] [place], [place], [id number] Screening total cholesterol/ high density lipoprotein (HDL) cholesterol ratioOrdered By: Shayy Curtis on 09-07-2024 Cholesterol.total/Cho lesterol in HDL [Mass ratio] 3.75 {ratio} [facility] Serum creatinine measurement (mass/volume)Ordered By: Shayy Curtis on 09-07-2024 Creatinine [Mass/Vol] 0.70 mg/dL 0.70-1.20 [facility] Serum globulin measurementOr dered By: Shayy Curtis on 09-07-2024 Globulin (S) [Mass/Vol] 2.5 g/dL 2.2-4.2 [facility] Serum glucose measurement (m ass/volume)Ordered By: Shayy Curtis on 09-07-2024 Glucose [Mass/Vol] 107 mg/dL High 70-99 [facility] Serum or plasma alanine franks otransferase (ALT) measurementOrdered By: Shayy Curtis on 09-07-2024 ALT [Catalytic activity/Vol] 23 U/L <47 [facility] Serum or plasma albumin alvaro urement (mass/volume)Ordered By: Shayy Curtis on 09-07-2024 Albumin [Mass/Vol] 3.7 g/dL 3.4-4.8 [facility] Serum or plasma albumin/glob ulin mass ratioOrdered By: Shayy Curtis on 09-07-2024 Albumin/Globulin [Mass ratio] 1.5 {ratio} 0.9-2.4 [facility] Serum or plasma alkaline carole sphatase measurementOrdered By: Shayy Curtis 09-07-2024 ALP [Catalytic activity/Vol] 123 U/L 40-129 [facility] Serum or plasma calcium alvaro urement (mass/volume)Ordered By: Shayy Curtis on 09-07-2024 Calcium [Mass/Vol] 8.7 mg/dL 7.6-11.0 [facility] Serum or plasma cholesterol in HDL measurement (mass/volume)Ordered By: Shayy Curtis 09-07-2024 Cholesterol in HDL [Mass/Vol] 28 mg/dL Low >40 [facility] Comment on above: National Cholesterol Education Program (NCEP) guidelines:<40 mg/dL: Low HDL-cholesterol (major risk factor for CHD)>= 60 mg/dL: High HDL-cholesterol (negative risk factor for CHD)HDL-cholesterol is affected by a number of factors, e.g. smoking, exercise, hormones, sex and age. Serum or plasma cholesterol measurement (mass/volume)Ordered By: Shayy Curtis 09-07-2024 Cholesterol [Mass/Vol] 105 mg/dL <201 [facility] Comment on above: Cholesterol level, D esirable <200 mg/dLBorderline high cholesterol 200-239 mg/dLHigh cholesterol >=240 mg/dLRecommendations of the NCEP Adult Treatment Panel for the following risk-cutoff thresholds for the [place] population. Serum or plasma urea nitroge n measurement (mass/volume)Ordered By: Shayy Curtis 09-07-2024 Urea nitrogen [Mass/Vol] 10 mg/dL 4-19 [facility] Sodium levelOrdered By: Latrice Curtis 09-07-2024 Sodium [Moles/Vol] 139 mmol/L 133-145 [facility] TSH DL <= 0.005 mIU/L QnOrde red By: Shayy Curtis 09-07-2024 TSH Qn 0.300 uIU/mL 0.300-4.20 0 [facility] Total proteinOrdered By: Yazan Curtis on 09-07-2024 Protein [Mass/Vol] 6.2 g/dL 5.9-8.4 [facility] Triglycerides measurementOrd ered By: Shayy Curtis on 09-07-2024 Triglyceride [Mass/Vol] 63 mg/dL <199 [facility] Comment on above: The drugs N-Acetylcy steine and Metamizole may falsely depress this assay. Normal range: <150 mg/dLBorderline High: 150-199 mg/dLHigh: 200-499 mg/dLVery High: >500 mg/dL Vitamin B12 ser/plasOrdered By: Shayy Curtis on 09-07-2024 Cobalamin (Vitamin B12) [Mass/Vol] 519 pg/mL 180-914 [facility] Absolute lymphocyte countOrd ered By: Navid Dominguez on 09-06-2024 Lymphocytes Auto (Unsp spec) [#/Vol] 1.28 10*3/uL 0.83-4.51 [facility] Absolute neutrophil countOrd ered By: Navid Dominguez on 09-06-2024 Neutrophils (Bld) [#/Vol] 5.2 10*3/uL 2.0-7.7 [facility] Anion gap in Serum or Plasma Ordered By: Navid Dominguez on 09-06-2024 Anion gap [Moles/Vol] 10 mmol/L 5-15 [facility] Automated blood erythrocyte countOrdered By: Navid Dominguez on 09-06-2024 RBC (Bld) [#/Vol] 4.39 10*6/uL Low 4.6-6.2 [facility] Comment on above: Performed By: #### L 100.0100, L500.2500, L300.3900 #### [facility] Laboratory [address] [place], [address] Automated blood hematocrit ( percentage)Ordered By: Navid Dominguez on 09-06-2024 Hematocrit (Bld) [Volume fraction] 33.6 % Low 40-54 [facility] Comment on above: Performed By: #### L 100.0100, L500.2500, L300.3900 #### [facility] Laboratory [address] [place], [address] Automated lymphocyte count a s percentage of total leukocytesOrdered By: Navid Dominguez on 09-06-2024 Lymphocytes/100 WBC Auto (Unsp spec) 16.4 % Low 19-41 [facility] BUN/creatinine ratioOrdered By: Navid Dominguez on 09-06-2024 Urea nitrogen/Creatinine [Mass ratio] 14.4 mg/mg 10-20 [facility] Basic Metabolic Profile (BMP )on 09-06-2024 BUN/CRE 14.4 RATIO Normal 10-20 [facility] Comment on above: Performed By: #### M 200.1000, L509.7001, L101.9900, L501.6710 #### [facility] Laboratory [address] [place], [address] ECRCL 64.10 ml/min Normal 50-250 [facility] Comment on above: Performed By: #### M 200.1000, L509.7001, L101.9900, L501.6710 #### [facility] Laboratory [address] [place], [address] GAP 10 Normal 5-15 [facility] Comment on above: Performed By: #### M 200.1000, L509.7001, L101.9900, L501.6710 #### [facility] Laboratory [address] [place], [address] Potassium [Moles/Vol] 3.5 mmol/L Normal 3.3-5.1 [facility] Comment on above: Performed By: #### M 200.1000, L509.7001, L101.9900, L501.6710 #### [facility] Laboratory [address] [place], [address] Basophil percentageOrdered B y: Navid Dominguez on 09-06-2024 Basophils/100 WBC (Bld) 1.0 % Normal 0-1 [facility] Comment on above: Performed By: #### L 100.0100, L500.2500, L300.3900 #### [facility] Laboratory [address] [place], [address] CBC W/Diff, Automatedon 08-21-2024 Absolute Lymph 1.28 X10 3/uL Normal 0.83-4.51 [facility] Comment on above: Performed By: #### L 100.0100, L500.2500, L300.3900 #### [facility] Laboratory [address] [place], [address] Absolute Neut 5.2 X10 3/uL Normal 2.0-7.7 [facility] Comment on above: Performed By: #### L 100.0100, L500.2500, L300.3900 #### [facility] Laboratory [address] [place], [address] IG% 0.400 Normal 0.0-0.9 [facility] Comment on above: Result Comment: IG% - Immature Granulocytes (promyelocytes, myelocytes and metamyelocytes) > 1% indicates that a LEFT SHIFT is Present. Performed By: #### L 100.0100, L500.2500, L300.3900 #### [facility] Laboratory [address] [place], [address] Lymphocytes/100 WBC (Bld) 16.4 % Low 19-41 [facility] Comment on above: Performed By: #### L 100.0100, L500.2500, L300.3900 #### [facility] Laboratory [address] [place], [address] Nucleated RBC (Bld) [#/Vol] 0 10*3/uL Normal 0-5 [facility] Comment on above: Performed By: #### L 100.0100, L500.2500, L300.3900 #### [facility] Laboratory [address] [place], [address] RDW SD 48.2 fl High 35.1-43.9 [facility] Comment on above: Performed By: #### L 100.0100, L500.2500, L300.3900 #### [facility] Laboratory [address] [place], [address] Carbon dioxide, total [Moles /volume] in Central venous bloodOrdered By: Navid Dominguez on 09-06-2024 CO2 [Moles/Vol] 24.9 mmol/L Normal 21.0-32.0 [facility] Comment on above: Performed By: #### M 200.1000, L509.7001, L101.9900, L501.6710 #### [facility] Laboratory [address] [place], [address] Chloride assayOrdered By: Cameron Dominguez on 09-06-2024 Chloride [Moles/Vol] 106 mmol/L Normal 98-108 [facility] Comment on above: Performed By: #### M 200.1000, L509.7001, L101.9900, L501.6710 #### [facility] Laboratory [address] [place], [address] Eosinophil percentageOrdered By: Navid Dominguez on 09-06-2024 Eosinophils/100 WBC (Bld) 6.3 % High 0-5 [facility] Comment on above: Performed By: #### L 100.0100, L500.2500, L300.3900 #### [facility] Laboratory [address] [place], [address] Erythrocyte distribution wid th ratioOrdered By: Navid Dominguez on 09-06-2024 Erythrocyte distribution width (RBC) [Ratio] 17.4 % High 11.6-14.6 [facility] Comment on above: Performed By: #### L 100.0100, L500.2500, L300.3900 #### [facility] Laboratory [address] [place], [address] Erythrocyte distribution wid th standard deviationOrdered By: Navid Dominguez on 09-06-2024 Erythrocyte distribution width (RBC) [Ratio] 48.2 fl High 35.1-43.9 [facility] Glomerular filtration rate ( GFR) estimation/1.73 sq m using serum, plasma, or whole bOrdered By: Navid Dominguez on 09-06-2024 GFR/1.73 sq M.predicted among non-blacks MDRD (S/P/Bld) [Vol rate/Area] 87 mL/min/{1.73_m2} Normal >60 [facility] Comment on above: mL/min/1.73m2 CKD-EP I Creatinine Equation (2020) Result Comment: mL/m in/1.73m2 CKD-EPI Creatinine Equation (2020) Performed By: #### M 200.1000, L509.7001, L101.9900, L501.6710 #### [facility] Laboratory [address] [place], [place], [id number] Hemoglobin measurementOrdere d By: Navid Dominguez on 09-06-2024 Hemoglobin (Bld) [Mass/Vol] 10.8 g/dL Low 13.0-16.5 [facility] Comment on above: Performed By: #### L 100.0100, L500.2500, L300.3900 #### [facility] Laboratory [address] [place], [place], [id number] Immature granulocytes/100 WB C Auto (Bld)Ordered By: Navid Dominguez on 09-06-2024 Immature granulocytes/100 WBC (Bld) 0.400 % 0.0-0.9 [facility] Comment on above: IG% - Immature Granu locytes (promyelocytes, myelocytes and metamyelocytes) > 1% indicates that a LEFT SHIFT is Present. International normalized rat io (INR) calculationOrdered By: Navid Dominguez on 09-06-2024 INR Coag (Bld) [Relative time] 2.4 {INR} [facility] MCV (mean corpuscular volume ) determinationOrdered By: Navid Dominguez on 09-06-2024 MCV (RBC) [Entitic vol] 76.5 fL Low 80-94 [facility] Comment on above: Performed By: #### L 100.0100, L500.2500, L300.3900 #### [facility] Laboratory [address] [place], [address] Mean corpuscular hemoglobin (MCH) determinationOrdered By: Navid Dominguez on 09-06-2024 MCH (RBC) [Entitic mass] 24.6 pg Low 27.0-32.0 [facility] Comment on above: Performed By: #### L 100.0100, L500.2500, L300.3900 #### [facility] Laboratory [address] [place], [address] Mean corpuscular hemoglobin concentration (MCHC) determinationOrdered By: Navid Dominguez on 09-06-2024 MCHC (RBC) [Mass/Vol] 32.1 g/dL Normal 32-36 [facility] Comment on above: Performed By: #### L 100.0100, L500.2500, L300.3900 #### [facility] Laboratory [address] [place], [address] Mean platelet volume determi nationOrdered By: Navid Dominguez on 09-06-2024 Platelet mean volume (Bld) [Entitic vol] 9.4 fL Normal 6.2-12.0 [facility] Comment on above: Performed By: #### L 100.0100, L500.2500, L300.3900 #### [facility] Laboratory [address] [place], [address] Monocyte percentageOrdered B y: Navid Dominguez on 09-06-2024 Monocytes/100 WBC (Bld) 9.1 % Normal 0-10 [facility] Comment on above: Performed By: #### L 100.0100, L500.2500, L300.3900 #### [facility] Laboratory [address] [place], [address] Neutrophil percentageOrdered By: Navid Dominguez on 09-06-2024 Neutrophils/100 WBC (Bld) 66.8 % Normal 47-70 [facility] Comment on above: Performed By: #### L 100.0100, L500.2500, L300.3900 #### [facility] Laboratory [address] [place], [address] Nucleated red blood cell per centageOrdered By: Navid Dominguez on 09-06-2024 Nucleated RBC/100 WBC (Bld) [Ratio] 0 % 0-5 [facility] Platelet countOrdered By: Cameron Dominguez on 09-06-2024 Platelets (Bld) [#/Vol] 325 10*3/uL Normal 150-450 [facility] Comment on above: Performed By: #### L 100.0100, L500.2500, L300.3900 #### [facility] Laboratory [address] [place], [address] Potassium measurement (mass/ volume)Ordered By: Navid Dominguez on 09-06-2024 Potassium (Unsp spec) [Mass/Vol] 3.5 mmol/L 3.3-5.1 [facility] Prothrombin Time w/INRon INR Coag (PPP) [Relative time] 2.4 {INR} Normal [facility] Comment on above: Performed By: #### M 200.1000, L509.7001, L101.9900, L501.6710 #### [facility] Laboratory [address] [place], [address] Prothrombin timeOrdered By: Navid Dominguez on 09-06-2024 PT Coag (PPP) [Time] 27.0 s High 11.7-14.9 [facility] Comment on above: Performed By: #### M 200.1000, L509.7001, L101.9900, L501.6710 #### [facility] Laboratory [address] [place], [address] Serum creatinine measurement (mass/volume)Ordered By: Navid Dominguez on 09-06-2024 Creatinine [Mass/Vol] 0.73 mg/dL Normal 0.70-1.20 [facility] Comment on above: Performed By: #### M 200.1000, L509.7001, L101.9900, L501.6710 #### [facility] Laboratory [address] [place], [address] Serum glucose measurement (m ass/volume)Ordered By: Navid Dominguez on 09-06-2024 Glucose [Mass/Vol] 109 mg/dL High 70-99 [facility] Comment on above: Performed By: #### M 200.1000, L509.7001, L101.9900, L501.6710 #### [facility] [address] [place], [address] Serum or plasma calcium alvaro urement (mass/volume)Ordered By: Navid Dominguez on 09-06-2024 Calcium [Mass/Vol] 8.7 mg/dL Normal 7.6-11.0 [facility] Comment on above: Performed By: #### M 200.1000, L509.7001, L101.9900, L501.6710 #### [facility] Laboratory [address] [place], [address] Serum or plasma urea nitroge n measurement (mass/volume)Ordered By: Navid Dominguez on 09-06-2024 Urea nitrogen [Mass/Vol] 11 mg/dL Normal 4-19 [facility] Comment on above: Performed By: #### M 200.1000, L509.7001, L101.9900, L501.6710 #### [facility] Laboratory [address] [place], [address] Sodium levelOrdered By: Kamilah Dominguez on 09-06-2024 Sodium [Moles/Vol] 141 mmol/L Normal 133-145 [facility] Comment on above: Performed By: #### M 200.1000, L509.7001, L101.9900, L501.6710 #### [facility] Laboratory [address] [place], [address] White blood cell (WBC) count Ordered By: Navid Dominguez on 09-06-2024 WBC (Bld) [#/Vol] 7.8 10*3/uL Normal 4.4-11.0 [facility] Comment on above: Performed By: #### L 100.0100, L500.2500, L300.3900 #### [facility] Laboratory [address] [place], [address] Basic Metabolic Profile (BMP )on 09-05-2024 BUN/CRE 13.4 RATIO Normal 10-20 [facility] Comment on above: Performed By: #### M 200.1000, L509.7001, L101.9900, L501.6710 #### [facility] Laboratory [address] [place], [address] Calcium [Mass/Vol] 8.6 mg/dL Normal 7.6-11.0 [facility] Comment on above: Performed By: #### M 200.1000, L509.7001, L101.9900, L501.6710 #### [facility] Laboratory [address] [place], [address] Chloride [Moles/Vol] 105 mmol/L Normal 98-108 [facility] Comment on above: Performed By: #### M 200.1000, L509.7001, L101.9900, L501.6710 #### [facility] Laboratory [address] [place], [address] CO2 [Moles/Vol] 21.9 mmol/L Normal 21.0-32.0 [facility] Comment on above: Performed By: #### M 200.1000, L509.7001, L101.9900, L501.6710 #### [facility] Laboratory [address] [place], [address] Creatinine [Mass/Vol] 0.62 mg/dL Low 0.70-1.20 [facility] Comment on above: Performed By: #### M 200.1000, L509.7001, L101.9900, L501.6710 #### [facility] Laboratory [address] [place], [address] ECRCL 64.10 ml/min Normal 50-250 [facility] Comment on above: Performed By: #### M 200.1000, L509.7001, L101.9900, L501.6710 #### [facility] Laboratory [address] [place], [address] GAP 12 Normal 5-15 [facility] Comment on above: Performed By: #### M 200.1000, L509.7001, L101.9900, L501.6710 #### [facility] [address] [place], [address] GFR/1.73 sq M.predicted among non-blacks MDRD (S/P/Bld) [Vol rate/Area] 91 mL/min/{1.73_m2} Normal >60 [facility] Comment on above: Result Comment: mL/m in/1.73m2 CKD-EPI Creatinine Equation (2020) Performed By: #### M 200.1000, L509.7001, L101.9900, L501.6710 #### [facility] Laboratory [address] [place], [address] Glucose [Mass/Vol] 119 mg/dL High 70-99 [facility] Comment on above: Performed By: #### M 200.1000, L509.7001, L101.9900, L501.6710 #### [facility] [address] [place], [address] Potassium [Moles/Vol] 3.3 mmol/L Normal 3.3-5.1 [facility] Comment on above: Performed By: #### M 200.1000, L509.7001, L101.9900, L501.6710 #### [facility] [address] [place], [address] Sodium [Moles/Vol] 139 mmol/L Normal 133-145 [facility] Comment on above: Performed By: #### M 200.1000, L509.7001, L101.9900, L501.6710 #### [facility] [address] [place], [address] Urea nitrogen [Mass/Vol] 8 mg/dL Normal 4-19 [facility] Comment on above: Performed By: #### M 200.1000, L509.7001, L101.9900, L501.6710 #### [facility] [address] [place], [address] Bilirubin Test strip Ql (U)O rdered By: Marta Black on 09-05-2024 Bilirubin Ql (U) Negative Negative [facility] CBC W/Diff, Automatedon 08-21 Absolute Lymph 0.96 X10 3/uL Normal 0.83-4.51 [facility] Comment on above: Performed By: #### M 200.1000, L509.7001, L101.9900, L501.6710 #### [facility] [address] [place], [address] Absolute Neut 7.6 X10 3/uL Normal 2.0-7.7 [facility] Comment on above: Performed By: #### M 200.1000, L509.7001, L101.9900, L501.6710 #### [facility] [address] [place], [address] Basophils/100 WBC (Bld) 0.7 % Normal 0-1 [facility] Comment on above: Performed By: #### M 200.1000, L509.7001, L101.9900, L501.6710 #### [facility] [address] [place], [address] Eosinophils/100 WBC (Bld) 4.0 % Normal 0-5 [facility] Comment on above: Performed By: #### M 200.1000, L509.7001, L101.9900, L501.6710 #### [facility] [address] [place], [address] Erythrocyte distribution width (RBC) [Ratio] 17.6 % High 11.6-14.6 [facility] Comment on above: Performed By: #### M 200.1000, L509.7001, L101.9900, L501.6710 #### [facility] [address] [place], [address] Hematocrit (Bld) [Volume fraction] 35.3 % Low 40-54 [facility] Comment on above: Performed By: #### M 200.1000, L509.7001, L101.9900, L501.6710 #### [facility] [address] [place], [address] Hemoglobin (Bld) [Mass/Vol] 11.3 g/dL Low 13.0-16.5 [facility] Comment on above: Performed By: #### M 200.1000, L509.7001, L101.9900, L501.6710 #### [facility] [address] [place], [address] IG% 0.400 Normal 0.0-0.9 [facility] Comment on above: Result Comment: IG% - Immature Granulocytes (promyelocytes, myelocytes and metamyelocytes) > 1% indicates that a LEFT SHIFT is Present. Performed By: #### M 200.1000, L509.7001, L101.9900, L501.6710 #### [facility] [address] [place], [address] Lymphocytes/100 WBC (Bld) 9.8 % Low 19-41 [facility] Comment on above: Performed By: #### M 200.1000, L509.7001, L101.9900, L501.6710 #### [facility] [address] [place], [address] MCH (RBC) [Entitic mass] 24.4 pg Low 27.0-32.0 [facility] Comment on above: Performed By: #### M 200.1000, L509.7001, L101.9900, L501.6710 #### [facility] [address] [place], [address] MCHC (RBC) [Mass/Vol] 32.0 g/dL Normal 32-36 [facility] Comment on above: Performed By: #### M 200.1000, L509.7001, L101.9900, L501.6710 #### [facility] [address] [place], [address] MCV (RBC) [Entitic vol] 76.2 fL Low 80-94 [facility] Comment on above: Performed By: #### M 200.1000, L509.7001, L101.9900, L501.6710 #### [facility] [address] [place], [address] Monocytes/100 WBC (Bld) 7.9 % Normal 0-10 [facility] Comment on above: Performed By: #### M 200.1000, L509.7001, L101.9900, L501.6710 #### [facility] [address] [place], [address] Neutrophils/100 WBC (Bld) 77.2 % High 47-70 [facility] Comment on above: Performed By: #### M 200.1000, L509.7001, L101.9900, L501.6710 #### [facility] [address] [place], [address] Nucleated RBC (Bld) [#/Vol] 0 10*3/uL Normal 0-5 [facility] Comment on above: Performed By: #### M 200.1000, L509.7001, L101.9900, L501.6710 #### [facility] [address] [place], [address] Platelet mean volume (Bld) [Entitic vol] 9.3 fL Normal 6.2-12.0 [facility] Comment on above: Performed By: #### M 200.1000, L509.7001, L101.9900, L501.6710 #### [facility] [address] [place], [address] Platelets (Bld) [#/Vol] 329 10*3/uL Normal 150-450 [facility] Comment on above: Performed By: #### M 200.1000, L509.7001, L101.9900, L501.6710 #### [facility] [address] [place], [address] RBC (Bld) [#/Vol] 4.63 10*6/uL Normal 4.6-6.2 [facility] Comment on above: Performed By: #### M 200.1000, L509.7001, L101.9900, L501.6710 #### [facility] [address] [place], [address] RDW SD 47.9 fl High 35.1-43.9 [facility] Comment on above: Performed By: #### M 200.1000, L509.7001, L101.9900, L501.6710 #### [facility] [address] [place], [address] WBC (Bld) [#/Vol] 9.8 10*3/uL Normal 4.4-11.0 [facility] Comment on above: Performed By: #### M 200.1000, L509.7001, L101.9900, L501.6710 #### [facility] [address] [place], [place], [address] Ketones Test strip Ql (U)Ord ered By: Marta Black on 09-05-2024 Ketones Ql (U) Negative Negative [facility] Microscopic analysis of urin e for red blood cells (RBC)Ordered By: Marta Black on 09-05-2024 Microscopic analysis of urine for red blood cells (RBC) 0-5 SEEN /hpf 0-5 [facility] Mucus LM Ql (Urine sed)Order ed By: Marta Black on 09-05-2024 Mucus Ql (Urine sed) 0 SEEN /hpf [facility] Nitrite Test strip Ql (U)Ord ered By: Marta Black on 09-05-2024 Nitrite Ql (U) Negative Negative [facility] Protein Test strip Ql (U)Ord ered By: Marta Black on 09-05-2024 Protein Ql (U) 15 mg/dl High Negative [facility] Prothrombin Time w/INRon INR Coag (PPP) [Relative time] 2.2 {INR} Normal [facility] Comment on above: Performed By: #### M 200.1000, L509.7001, L101.9900, L501.6710 #### [facility] [address] [place], [address] PT Coag (PPP) [Time] 24.7 s High 11.7-14.9 [facility] Comment on above: Performed By: #### M 200.1000, L509.7001, L101.9900, L501.6710 #### [facility] [address] [place], [address] Squamous epithelial cells de tection in urine sediment by light microscopyOrdered By: Marta Black on 09-05-2024 Epithelial cells.squamous LM Ql (Urine sed) 0 SEEN /hpf 0-5 [facility] Urinalysis, Completeon 09-05 BACTERIA RARE Normal None Seen [facility] Comment on above: Order Comment: CLEAN CATCH Performed By: #### M 200.1000, L509.7001, L101.9900, L501.6710 #### [facility] [address] [place], [address] RBC 0-5 SEEN Normal 0-5 [facility] Comment on above: Order Comment: CLEAN CATCH Performed By: #### M 200.1000, L509.7001, L101.9900, L501.6710 #### [facility] [address] [place], [address] WBC 0-5 SEEN Normal 0-5 [facility] Comment on above: Order Comment: CLEAN CATCH Performed By: #### M 200.1000, L509.7001, L101.9900, L501.6710 #### [facility] [address] [place], [address] BILIRUBIN URINE Negative Normal Negative [facility] Comment on above: Order Comment: CLEAN CATCH Performed By: #### M 200.1000, L509.7001, L101.9900, L501.6710 #### [facility] [address] [place], [address] Clarity (U) Clear Normal Clear [facility] Comment on above: Order Comment: CLEAN CATCH Performed By: #### M 200.1000, L509.7001, L101.9900, L501.6710 #### [facility] [address] [place], [address] Color (U) Straw Normal Yellow [facility] Comment on above: Order Comment: CLEAN CATCH Performed By: #### M 200.1000, L509.7001, L101.9900, L501.6710 #### [facility] [address] [place], [address] GLUCOSE, UR Normal Normal Normal [facility] Comment on above: Order Comment: CLEAN CATCH Performed By: #### M 200.1000, L509.7001, L101.9900, L501.6710 #### [facility] [address] [place], [address] KETONE UR Negative Normal Negative [facility] Comment on above: Order Comment: CLEAN CATCH Performed By: #### M 200.1000, L509.7001, L101.9900, L501.6710 #### [facility] [address] [place], [address] LEUK ESTERASE Negative Normal Negative [facility] Comment on above: Order Comment: CLEAN CATCH Performed By: #### M 200.1000, L509.7001, L101.9900, L501.6710 #### [facility] [address] [place], [address] Nitrite Ql (U) Negative Normal Negative [facility] Comment on above: Order Comment: CLEAN CATCH Performed By: #### M 200.1000, L509.7001, L101.9900, L501.6710 #### [facility] [address] [place], [address] OCCULT BLOOD-UR 25 /ul Abnormal Negative [facility] Comment on above: Order Comment: CLEAN CATCH Performed By: #### M 200.1000, L509.7001, L101.9900, L501.6710 #### [facility] [address] [place], [address] pH UR 7.0 Normal 5.0 - 8.0 [facility] Comment on above: Order Comment: CLEAN CATCH Performed By: #### M 200.1000, L509.7001, L101.9900, L501.6710 #### [facility] [address] [place], [address] PROT DIPSTX 15 mg/dl Abnormal Negative [facility] Comment on above: Order Comment: CLEAN CATCH Performed By: #### M 200.1000, L509.7001, L101.9900, L501.6710 #### [facility] [address] [place], [address] SP.GR. DIPSTX 1.005 Normal 1.002-1.03 0 [facility] Comment on above: Order Comment: CLEAN CATCH Performed By: #### M 200.1000, L509.7001, L101.9900, L501.6710 #### [facility] [address] [place], [address] UROBILI Normal Normal Normal [facility] Comment on above: Order Comment: CLEAN CATCH Performed By: #### M 200.1000, L509.7001, L101.9900, L501.6710 #### [facility] [address] [place], [address] EPI,SQUAMOUS 0 SEEN Normal 0-5 [facility] Comment on above: Order Comment: CLEAN CATCH Performed By: #### M 200.1000, L509.7001, L101.9900, L501.6710 #### [facility] [address] [place], [address] Mucus Ql (Urine sed) 0 SEEN Normal [facility] Comment on above: Order Comment: CLEAN CATCH Performed By: #### M 200.1000, L509.7001, L101.9900, L501.6710 #### [facility] [address] [place], [address] Urine clarityOrdered By: Magnolia Black on 09-05-2024 Clarity (U) Clear Clear [facility] Urine color determinationOrd ered By: Marta Black on 09-05-2024 Color (U) Straw Yellow [facility] Urine glucose detectionOrder ed By: Marta Black on 09-05-2024 Glucose Ql (U) Normal mg/dl Normal [facility] Urine leukocyte esterase det ection by dipstickOrdered By: Marta Black on 09-05-2024 Leukocyte esterase Test strip Ql (U) Negative Negative [facility] Urine pHOrdered By: Marta Black on 09-05-2024 pH (U) 7.0 [pH] 5.0 - 8.0 [facility] Urine sediment bacteria coun t by microscopy (number/high power field)Ordered By: Marta Black on 09-05-2024 Bacteria LM.HPF (Urine sed) [#/Area] RARE /hpf None Seen [facility] Urine specific gravity measu rementOrdered By: Marta Black on 09-05-2024 Specific gravity (U) [Rel density] 1.005 1.002-1.03 0 [facility] Urine urobilinogen measureme ntOrdered By: Marta Black on 09-05-2024 Urobilinogen Ql (U) Normal mg/dl Normal [facility] White blood cell countOrdere d By: Marta Black on 09-05-2024 White blood cell count 0-5 SEEN /hpf 0-5 [facility] Basic Metabolic Profile (BMP )on 09-04-2024 BUN/CRE 17.3 RATIO Normal 10-20 [facility] Comment on above: Performed By: #### M 200.1000, L509.7001, L101.9900, L501.6710 #### [facility] [address] [place], [address] Calcium [Mass/Vol] 8.2 mg/dL Normal 7.6-11.0 [facility] Comment on above: Performed By: #### M 200.1000, L509.7001, L101.9900, L501.6710 #### [facility] [address] [place], [address] Chloride [Moles/Vol] 107 mmol/L Normal 98-108 [facility] Comment on above: Performed By: #### M 200.1000, L509.7001, L101.9900, L501.6710 #### [facility] [address] [place], [address] CO2 [Moles/Vol] 20.9 mmol/L Low 21.0-32.0 [facility] Comment on above: Performed By: #### M 200.1000, L509.7001, L101.9900, L501.6710 #### [facility] [address] [place], [address] Creatinine [Mass/Vol] 0.72 mg/dL Normal 0.70-1.20 [facility] Comment on above: Performed By: #### M 200.1000, L509.7001, L101.9900, L501.6710 #### [facility] [address] [place], [address] ECRCL 64.10 ml/min Normal 50-250 [facility] Comment on above: Performed By: #### M 200.1000, L509.7001, L101.9900, L501.6710 #### [facility] [address] [place], [address] GAP 11 Normal 5-15 [facility] Comment on above: Performed By: #### M 200.1000, L509.7001, L101.9900, L501.6710 #### [facility] [address] [place], [address] GFR/1.73 sq M.predicted among non-blacks MDRD (S/P/Bld) [Vol rate/Area] 87 mL/min/{1.73_m2} Normal >60 [facility] Comment on above: Result Comment: mL/m in/1.73m2 CKD-EPI Creatinine Equation (2020) Performed By: #### M 200.1000, L509.7001, L101.9900, L501.6710 #### [facility] [address] [place], [address] Glucose [Mass/Vol] 120 mg/dL High 70-99 [facility] Comment on above: Performed By: #### M 200.1000, L509.7001, L101.9900, L501.6710 #### [facility] [address] [place], [address] Potassium [Moles/Vol] 3.5 mmol/L Normal 3.3-5.1 [facility] Comment on above: Performed By: #### M 200.1000, L509.7001, L101.9900, L501.6710 #### [facility] [address] [place], [address] Sodium [Moles/Vol] 139 mmol/L Normal 133-145 [facility] Comment on above: Performed By: #### M 200.1000, L509.7001, L101.9900, L501.6710 #### [facility] [address] [place], [address] Urea nitrogen [Mass/Vol] 12 mg/dL Normal 4-19 [facility] Comment on above: Performed By: #### M 200.1000, L509.7001, L101.9900, L501.6710 #### [facility] [address] [place], [address] CBC W/Diff, Automatedon 08-21-2024 Absolute Lymph 0.89 X10 3/uL Normal 0.83-4.51 [facility] Comment on above: Performed By: #### M 200.1000, L509.7001, L101.9900, L501.6710 #### [facility] [address] [place], [address] Absolute Neut 8.9 X10 3/uL High 2.0-7.7 [facility] Comment on above: Performed By: #### M 200.1000, L509.7001, L101.9900, L501.6710 #### [facility] [address] [place], [address] Basophils/100 WBC (Bld) 0.8 % Normal 0-1 [facility] Comment on above: Performed By: #### M 200.1000, L509.7001, L101.9900, L501.6710 #### [facility] [address] [place], [address] Eosinophils/100 WBC (Bld) 5.3 % High 0-5 [facility] Comment on above: Performed By: #### M 200.1000, L509.7001, L101.9900, L501.6710 #### [facility] [address] [place], [address] Erythrocyte distribution width (RBC) [Ratio] 17.5 % High 11.6-14.6 [facility] Comment on above: Performed By: #### M 200.1000, L509.7001, L101.9900, L501.6710 #### [facility] [address] [place], [address] Hematocrit (Bld) [Volume fraction] 33.3 % Low 40-54 [facility] Comment on above: Performed By: #### M 200.1000, L509.7001, L101.9900, L501.6710 #### [facility] [address] [place], [address] Hemoglobin (Bld) [Mass/Vol] 10.7 g/dL Low 13.0-16.5 [facility] Comment on above: Performed By: #### M 200.1000, L509.7001, L101.9900, L501.6710 #### [facility] [address] [place], [address] IG% 0.400 Normal 0.0-0.9 [facility] Comment on above: Result Comment: IG% - Immature Granulocytes (promyelocytes, myelocytes and metamyelocytes) > 1% indicates that a LEFT SHIFT is Present. Performed By: #### M 200.1000, L509.7001, L101.9900, L501.6710 #### [facility] [address] [place], [address] Lymphocytes/100 WBC (Bld) 7.8 % Low 19-41 [facility] Comment on above: Performed By: #### M 200.1000, L509.7001, L101.9900, L501.6710 #### [facility] [address] [place], [address] MCH (RBC) [Entitic mass] 24.6 pg Low 27.0-32.0 [facility] Comment on above: Performed By: #### M 200.1000, L509.7001, L101.9900, L501.6710 #### [facility] [address] [place], [address] MCHC (RBC) [Mass/Vol] 32.1 g/dL Normal 32-36 [facility] Comment on above: Performed By: #### M 200.1000, L509.7001, L101.9900, L501.6710 #### [facility] [address] [place], [address] MCV (RBC) [Entitic vol] 76.6 fL Low 80-94 [facility] Comment on above: Performed By: #### M 200.1000, L509.7001, L101.9900, L501.6710 #### [facility] [address] [place], [address] Monocytes/100 WBC (Bld) 7.7 % Normal 0-10 [facility] Comment on above: Performed By: #### M 200.1000, L509.7001, L101.9900, L501.6710 #### [facility] [address] [place], [address] Neutrophils/100 WBC (Bld) 78.0 % High 47-70 [facility] Comment on above: Performed By: #### M 200.1000, L509.7001, L101.9900, L501.6710 #### [facility] [address] [place], [address] Nucleated RBC (Bld) [#/Vol] 0 10*3/uL Normal 0-5 [facility] Comment on above: Performed By: #### M 200.1000, L509.7001, L101.9900, L501.6710 #### [facility] [address] [place], [address] Platelet mean volume (Bld) [Entitic vol] 10.6 fL Normal 6.2-12.0 [facility] Comment on above: Performed By: #### M 200.1000, L509.7001, L101.9900, L501.6710 #### [facility] [address] [place], [address] Platelets (Bld) [#/Vol] 305 10*3/uL Normal 150-450 [facility] Comment on above: Performed By: #### M 200.1000, L509.7001, L101.9900, L501.6710 #### [facility] [address] [place], [address] RBC (Bld) [#/Vol] 4.35 10*6/uL Low 4.6-6.2 [facility] Comment on above: Performed By: #### M 200.1000, L509.7001, L101.9900, L501.6710 #### [facility] [address] [place], [address] RDW SD 48.3 fl High 35.1-43.9 [facility] Comment on above: Performed By: #### M 200.1000, L509.7001, L101.9900, L501.6710 #### [facility] [address] [place], [address] WBC (Bld) [#/Vol] 11.4 10*3/uL High 4.4-11.0 [facility] Comment on above: Performed By: #### M 200.1000, L509.7001, L101.9900, L501.6710 #### [facility] [address] [place], [address] Prothrombin Time w/INRon INR Coag (PPP) [Relative time] 1.9 {INR} Normal [facility] Comment on above: Performed By: #### L 300.3900 #### [facility] [address] [place], [address] PT Coag (PPP) [Time] 21.8 s High 11.7-14.9 [facility] Comment on above: Performed By: #### L 300.3900 #### [facility] [address] [place], [address] Basic Metabolic Profile (BMP )on 09-03-2024 BUN/CRE 13.3 RATIO Normal 10-20 [facility] Comment on above: Performed By: #### M 200.1000, L509.7001, L101.9900, L501.6710 #### [facility] [address] [place], [address] Calcium [Mass/Vol] 8.5 mg/dL Normal 7.6-11.0 [facility] Comment on above: Performed By: #### M 200.1000, L509.7001, L101.9900, L501.6710 #### [facility] [address] [place], [address] Chloride [Moles/Vol] 104 mmol/L Normal 98-108 [facility] Comment on above: Performed By: #### M 200.1000, L509.7001, L101.9900, L501.6710 #### [facility] [address] [place], [address] CO2 [Moles/Vol] 19.1 mmol/L Low 21.0-32.0 [facility] Comment on above: Performed By: #### M 200.1000, L509.7001, L101.9900, L501.6710 #### [facility] [address] [place], [address] Creatinine [Mass/Vol] 0.74 mg/dL Normal 0.70-1.20 [facility] Comment on above: Performed By: #### M 200.1000, L509.7001, L101.9900, L501.6710 #### [facility] [address] [place], [address] ECRCL 64.10 ml/min Normal 50-250 [facility] Comment on above: Performed By: #### M 200.1000, L509.7001, L101.9900, L501.6710 #### [facility] [address] [place], [address] GAP 13 Normal 5-15 [facility] Comment on above: Performed By: #### M 200.1000, L509.7001, L101.9900, L501.6710 #### [facility] [address] [place], [address] GFR/1.73 sq M.predicted among non-blacks MDRD (S/P/Bld) [Vol rate/Area] 87 mL/min/{1.73_m2} Normal >60 [facility] Comment on above: Result Comment: mL/m in/1.73m2 CKD-EPI Creatinine Equation (2020) Performed By: #### M 200.1000, L509.7001, L101.9900, L501.6710 #### [facility] [address] [place], [address] Glucose [Mass/Vol] 111 mg/dL High 70-99 [facility] Comment on above: Performed By: #### M 200.1000, L509.7001, L101.9900, L501.6710 #### [facility] [address] [place], [address] Potassium [Moles/Vol] 3.5 mmol/L Normal 3.3-5.1 [facility] Comment on above: Performed By: #### M 200.1000, L509.7001, L101.9900, L501.6710 #### [facility] [address] [place], [address] Sodium [Moles/Vol] 137 mmol/L Normal 133-145 [facility] Comment on above: Performed By: #### M 200.1000, L509.7001, L101.9900, L501.6710 #### [facility] [address] [place], [address] Urea nitrogen [Mass/Vol] 10 mg/dL Normal 4-19 [facility] Comment on above: Performed By: #### M 200.1000, L509.7001, L101.9900, L501.6710 #### [facility] [address] [place], [address] CBC W/Diff, Automatedon 06-1 -2024 Absolute Lymph 0.82 X10 3/uL Low 0.83-4.51 [facility] Comment on above: Performed By: #### M 200.1000, L509.7001, L101.9900, L501.6710 #### [facility] [address] [place], [address] Absolute Neut 10.2 X10 3/uL High 2.0-7.7 [facility] Comment on above: Performed By: #### M 200.1000, L509.7001, L101.9900, L501.6710 #### [facility] [address] [place], [address] Basophils/100 WBC (Bld) 0.7 % Normal 0-1 [facility] Comment on above: Performed By: #### M 200.1000, L509.7001, L101.9900, L501.6710 #### [facility] [address] [place], [address] Eosinophils/100 WBC (Bld) 2.8 % Normal 0-5 [facility] Comment on above: Performed By: #### M 200.1000, L509.7001, L101.9900, L501.6710 #### [facility] [address] [place], [address] Erythrocyte distribution width (RBC) [Ratio] 17.5 % High 11.6-14.6 [facility] Comment on above: Performed By: #### M 200.1000, L509.7001, L101.9900, L501.6710 #### [facility] [address] [place], [address] Hematocrit (Bld) [Volume fraction] 35.6 % Low 40-54 [facility] Comment on above: Performed By: #### M 200.1000, L509.7001, L101.9900, L501.6710 #### [facility] [address] [place], [address] Hemoglobin (Bld) [Mass/Vol] 11.3 g/dL Low 13.0-16.5 [facility] Comment on above: Performed By: #### M 200.1000, L509.7001, L101.9900, L501.6710 #### [facility] [address] [place], [address] IG% 0.400 Normal 0.0-0.9 [facility] Comment on above: Result Comment: IG% - Immature Granulocytes (promyelocytes, myelocytes and metamyelocytes) > 1% indicates that a LEFT SHIFT is Present. Performed By: #### M 200.1000, L509.7001, L101.9900, L501.6710 #### [facility] [address] [place], [address] Lymphocytes/100 WBC (Bld) 6.7 % Low 19-41 [facility] Comment on above: Performed By: #### M 200.1000, L509.7001, L101.9900, L501.6710 #### [facility] [address] [place], [address] MCH (RBC) [Entitic mass] 24.7 pg Low 27.0-32.0 [facility] Comment on above: Performed By: #### M 200.1000, L509.7001, L101.9900, L501.6710 #### [facility] [address] [place], [address] MCHC (RBC) [Mass/Vol] 31.7 g/dL Low 32-36 [facility] Comment on above: Performed By: #### M 200.1000, L509.7001, L101.9900, L501.6710 #### [facility] [address] [place], [address] MCV (RBC) [Entitic vol] 77.7 fL Low 80-94 [facility] Comment on above: Performed By: #### M 200.1000, L509.7001, L101.9900, L501.6710 #### [facility] [address] [place], [address] Monocytes/100 WBC (Bld) 6.0 % Normal 0-10 [facility] Comment on above: Performed By: #### M 200.1000, L509.7001, L101.9900, L501.6710 #### [facility] [address] [place], [address] Neutrophils/100 WBC (Bld) 83.4 % High 47-70 [facility] Comment on above: Performed By: #### M 200.1000, L509.7001, L101.9900, L501.6710 #### [facility] [address] [place], [address] Nucleated RBC (Bld) [#/Vol] 0 10*3/uL Normal 0-5 [facility] Comment on above: Performed By: #### M 200.1000, L509.7001, L101.9900, L501.6710 #### [facility] [address] [place], [address] Platelet mean volume (Bld) [Entitic vol] 9.9 fL Normal 6.2-12.0 [facility] Comment on above: Performed By: #### M 200.1000, L509.7001, L101.9900, L501.6710 #### [facility] [address] [place], [address] Platelets (Bld) [#/Vol] 252 10*3/uL Normal 150-450 [facility] Comment on above: Performed By: #### M 200.1000, L509.7001, L101.9900, L501.6710 #### [facility] [address] [place], [address] RBC (Bld) [#/Vol] 4.58 10*6/uL Low 4.6-6.2 [facility] Comment on above: Performed By: #### M 200.1000, L509.7001, L101.9900, L501.6710 #### [facility] [address] [place], [address] RDW SD 48.2 fl High 35.1-43.9 [facility] Comment on above: Performed By: #### M 200.1000, L509.7001, L101.9900, L501.6710 #### [facility] [address] [place], [address] WBC (Bld) [#/Vol] 12.3 10*3/uL High 4.4-11.0 [facility] Comment on above: Performed By: #### M 200.1000, L509.7001, L101.9900, L501.6710 #### [facility] [address] [place], [address] Prothrombin Time w/INRon INR Coag (PPP) [Relative time] 1.8 {INR} Normal [facility] Comment on above: Performed By: #### L 300.3900 #### [facility] [address] [place], [address] PT Coag (PPP) [Time] 20.9 s High 11.7-14.9 [facility] Comment on above: Performed By: #### L 300.3900 #### [facility] [address] [place], [address] Trough vancomycin levelOrder ed By: Marta Black on 09-03-2024 Vancomycin trough [Mass/Vol] 8.2 ug/mL 5.0-15.0 [facility] Comment on above: Recommended goal tro ugh [...] therapy recommended for serious lifethreatening infections include:- Hyxtttksyj-Rqqnvtlbpwgh-Tgnxfzayf (Ventilator/Healtcare Associated)-Sepsis PLEASE CONTACT PHARMACY SERVICES (#[id number]) FOR INTERPRETATIONOF RESULTS. Vancomycin, Trough Levelon 0 09-03-2024 VANCO, TROUGH 8.2 ug/mL Normal 5.0-15.0 [facility] Comment on above: Order Comment: Comme nts: Trough to be drawn 30 mins prior to scheduled [id number] Result Comment: Ilya mmended goal trough ranges [...] (Ventilator/Healtcare Associated) -Sepsis PLEASE CONTACT PHARMACY SERVICES (#[id number]) FOR INTERPRETATION OF RESULTS. Performed By: #### M 200.1000, L509.7001, L101.9900, L501.6710 #### [facility] [address] [place], [address] Basic Metabolic Profile (BMP )on 09-02-2024 BUN/CRE 18.9 RATIO Normal 10-20 [facility] Comment on above: Performed By: #### M 200.1000, L509.7001, L101.9900, L501.6710 #### [facility] [address] [place], [address] Calcium [Mass/Vol] 8.5 mg/dL Normal 7.6-11.0 [facility] Comment on above: Performed By: #### M 200.1000, L509.7001, L101.9900, L501.6710 #### [facility] [address] [place], [address] Chloride [Moles/Vol] 105 mmol/L Normal 98-108 [facility] Comment on above: Performed By: #### M 200.1000, L509.7001, L101.9900, L501.6710 #### [facility] [address] [place], [address] CO2 [Moles/Vol] 14.2 mmol/L Low 21.0-32.0 [facility] Comment on above: Performed By: #### M 200.1000, L509.7001, L101.9900, L501.6710 #### [facility] [address] [place], [address] Creatinine [Mass/Vol] 0.75 mg/dL Normal 0.70-1.20 [facility] Comment on above: Performed By: #### M 200.1000, L509.7001, L101.9900, L501.6710 #### [facility] [address] [place], [address] ECRCL 64.10 ml/min Normal 50-250 [facility] Comment on above: Performed By: #### M 200.1000, L509.7001, L101.9900, L501.6710 #### [facility] [address] [place], [address] GAP 15 Normal 5-15 [facility] Comment on above: Performed By: #### M 200.1000, L509.7001, L101.9900, L501.6710 #### [facility] [address] [place], [address] GFR/1.73 sq M.predicted among non-blacks MDRD (S/P/Bld) [Vol rate/Area] 86 mL/min/{1.73_m2} Normal >60 [facility] Comment on above: Result Comment: mL/m in/1.73m2 CKD-EPI Creatinine Equation (2020) Performed By: #### M 200.1000, L509.7001, L101.9900, L501.6710 #### [facility] [address] [place], [address] Glucose [Mass/Vol] 105 mg/dL High 70-99 [facility] Comment on above: Performed By: #### M 200.1000, L509.7001, L101.9900, L501.6710 #### [facility] [address] [place], [address] Potassium [Moles/Vol] 4.3 mmol/L Normal 3.3-5.1 [facility] Comment on above: Result Comment: Hemo lysis present, Results??could be affected. ?? Performed By: #### M 200.1000, L509.7001, L101.9900, L501.6710 #### [facility] [address] [place], [address] Sodium [Moles/Vol] 135 mmol/L Normal 133-145 [facility] Comment on above: Performed By: #### M 200.1000, L509.7001, L101.9900, L501.6710 #### [facility] [address] [place], [address] Urea nitrogen [Mass/Vol] 14 mg/dL Normal 4-19 [facility] Comment on above: Performed By: #### M 200.1000, L509.7001, L101.9900, L501.6710 #### [facility] [address] [place], [address] CBC W/Diff, Automatedon 06-03 25-2024 Absolute Lymph 0.52 X10 3/uL Low 0.83-4.51 [facility] Comment on above: Performed By: #### M 200.1000, L509.7001, L101.9900, L501.6710 #### [facility] [address] [place], [address] Absolute Neut 12.1 X10 3/uL High 2.0-7.7 [facility] Comment on above: Performed By: #### M 200.1000, L509.7001, L101.9900, L501.6710 #### [facility] [address] [place], [address] Basophils/100 WBC (Bld) 0.6 % Normal 0-1 [facility] Comment on above: Performed By: #### M 200.1000, L509.7001, L101.9900, L501.6710 #### [facility] [address] [place], [address] Eosinophils/100 WBC (Bld) 2.2 % Normal 0-5 [facility] Comment on above: Performed By: #### M 200.1000, L509.7001, L101.9900, L501.6710 #### [facility] [address] [place], [address] Erythrocyte distribution width (RBC) [Ratio] 17.8 % High 11.6-14.6 [facility] Comment on above: Performed By: #### M 200.1000, L509.7001, L101.9900, L501.6710 #### [facility] [address] [place], [address] Hematocrit (Bld) [Volume fraction] 39.9 % Low 40-54 [facility] Comment on above: Performed By: #### M 200.1000, L509.7001, L101.9900, L501.6710 #### [facility] [address] [place], [address] Hemoglobin (Bld) [Mass/Vol] 11.9 g/dL Low 13.0-16.5 [facility] Comment on above: Performed By: #### M 200.1000, L509.7001, L101.9900, L501.6710 #### [facility] [address] [place], [address] IG% 0.700 Normal 0.0-0.9 [facility] Comment on above: Result Comment: IG% - Immature Granulocytes (promyelocytes, myelocytes and metamyelocytes) > 1% indicates that a LEFT SHIFT is Present. Performed By: #### M 200.1000, L509.7001, L101.9900, L501.6710 #### [facility] [address] [place], [address] Lymphocytes/100 WBC (Bld) 3.8 % Low 19-41 [facility] Comment on above: Performed By: #### M 200.1000, L509.7001, L101.9900, L501.6710 #### [facility] [address] [place], [address] MCH (RBC) [Entitic mass] 24.5 pg Low 27.0-32.0 [facility] Comment on above: Performed By: #### M 200.1000, L509.7001, L101.9900, L501.6710 #### [facility] [address] [place], [address] MCHC (RBC) [Mass/Vol] 29.8 g/dL Low 32-36 [facility] Comment on above: Performed By: #### M 200.1000, L509.7001, L101.9900, L501.6710 #### [facility] [address] [place], [address] MCV (RBC) [Entitic vol] 82.3 fL Normal 80-94 [facility] Comment on above: Performed By: #### M 200.1000, L509.7001, L101.9900, L501.6710 #### [facility] [address] [place], [address] Monocytes/100 WBC (Bld) 4.8 % Normal 0-10 [facility] Comment on above: Performed By: #### M 200.1000, L509.7001, L101.9900, L501.6710 #### [facility] [address] [place], [address] Neutrophils/100 WBC (Bld) 87.9 % High 47-70 [facility] Comment on above: Performed By: #### M 200.1000, L509.7001, L101.9900, L501.6710 #### [facility] [address] [place], [address] Nucleated RBC (Bld) [#/Vol] 0 10*3/uL Normal 0-5 [facility] Comment on above: Performed By: #### M 200.1000, L509.7001, L101.9900, L501.6710 #### [facility] [address] [place], [address] Platelet mean volume (Bld) [Entitic vol] 10.6 fL Normal 6.2-12.0 [facility] Comment on above: Performed By: #### M 200.1000, L509.7001, L101.9900, L501.6710 #### [facility] [address] [place], [address] Platelets (Bld) [#/Vol] 227 10*3/uL Normal 150-450 [facility] Comment on above: Performed By: #### M 200.1000, L509.7001, L101.9900, L501.6710 #### [facility] [address] [place], [address] RBC (Bld) [#/Vol] 4.85 10*6/uL Normal 4.6-6.2 [facility] Comment on above: Performed By: #### M 200.1000, L509.7001, L101.9900, L501.6710 #### [facility] [address] [place], [address] RDW SD 52.3 fl High 35.1-43.9 [facility] Comment on above: Performed By: #### M 200.1000, L509.7001, L101.9900, L501.6710 #### [facility] [address] [place], [address] WBC (Bld) [#/Vol] 13.8 10*3/uL High 4.4-11.0 [facility] Comment on above: Performed By: #### M 200.1000, L509.7001, L101.9900, L501.6710 #### [facility] [address] [place], [address] Prothrombin Time w/INRon INR Coag (PPP) [Relative time] 1.9 {INR} Normal [facility] Comment on above: Performed By: #### M 200.1000, L509.7001, L101.9900, L501.6710 #### [facility] [address] [place], [address] PT Coag (PPP) [Time] 22.1 s High 11.7-14.9 [facility] Comment on above: Performed By: #### M 200.1000, L509.7001, L101.9900, L501.6710 #### [facility] [address] [place], [address] RESPIRATORY PANEL MOLECULARo n 09-02-2024 RP PANEL [...] Detected Normal [facility] Comment on above: Performed By: #### M 200.1000, L509.7001, L101.9900, L501.6710 #### [facility] [address] [place], [address] Absolute lymphocyte countOrd ered By: Inderjit Gillespie on 09-01-2024 Lymphocytes Auto (Unsp spec) [#/Vol] 0.62 10*3/uL Low 0.83-4.51 [facility] Absolute neutrophil countOrd ered By: Inderjit Gillespie on 09-01-2024 Neutrophils (Bld) [#/Vol] 11.3 10*3/uL High 2.0-7.7 [facility] Anion gap in Serum or Plasma Ordered By: Inderijt Gillespie on 09-01-2024 Anion gap [Moles/Vol] 10 mmol/L 5-15 [facility] Automated lymphocyte count a s percentage of total leukocytesOrdered By: Inderjit Gillespie on 09-01-2024 Lymphocytes/100 WBC Auto (Unsp spec) 4.8 % Low 19-41 [facility] BUN/creatinine ratioOrdered By: Inderjit Gillespie on 09-01-2024 Urea nitrogen/Creatinine [Mass ratio] 21.6 mg/mg High 10-20 [facility] Basic Metabolic Profile (BMP )on 09-01-2024 BUN/CRE 21.6 RATIO High 10- [facility] Comment on above: Performed By: #### M 200.1000, L509.7001, L101.9900, L501.6710 #### [facility] [address] [place], [address] Calcium [Mass/Vol] 8.8 mg/dL Normal 7.6-11.0 [facility] Comment on above: Performed By: #### M 200.1000, L509.7001, L101.9900, L501.6710 #### [facility] [address] [place], [address] Chloride [Moles/Vol] 105 mmol/L Normal 98-108 [facility] Comment on above: Performed By: #### M 200.1000, L509.7001, L101.9900, L501.6710 #### [facility] [address] [place], [address] CO2 [Moles/Vol] 24.3 mmol/L Normal 21.0-32.0 [facility] Comment on above: Performed By: #### M 200.1000, L509.7001, L101.9900, L501.6710 #### [facility] [address] [place], [address] Creatinine [Mass/Vol] 0.77 mg/dL Normal 0.70-1.20 [facility] Comment on above: Performed By: #### M 200.1000, L509.7001, L101.9900, L501.6710 #### [facility] [address] [place], [address] ECRCL 68.71 ml/min Normal 50-250 [facility] Comment on above: Performed By: #### M 200.1000, L509.7001, L101.9900, L501.6710 #### [facility] [address] [place], [address] GAP 10 Normal 5-15 [facility] Comment on above: Performed By: #### M 200.1000, L509.7001, L101.9900, L501.6710 #### [facility] [address] [place], [address] GFR/1.73 sq M.predicted among non-blacks MDRD (S/P/Bld) [Vol rate/Area] 86 mL/min/{1.73_m2} Normal >60 [facility] Comment on above: Result Comment: mL/m in/1.73m2 CKD-EPI Creatinine Equation (2020) Performed By: #### M 200.1000, L509.7001, L101.9900, L501.6710 #### [facility] [address] [place], [address] Glucose [Mass/Vol] 112 mg/dL High 70-99 [facility] Comment on above: Performed By: #### M 200.1000, L509.7001, L101.9900, L501.6710 #### [facility] [address] [place], [address] Potassium [Moles/Vol] 3.7 mmol/L Normal 3.3-5.1 [facility] Comment on above: Performed By: #### M 200.1000, L509.7001, L101.9900, L501.6710 #### [facility] [address] [place], [address] Sodium [Moles/Vol] 139 mmol/L Normal 133-145 [facility] Comment on above: Performed By: #### M 200.1000, L509.7001, L101.9900, L501.6710 #### [facility] [address] [place], [address] Urea nitrogen [Mass/Vol] 17 mg/dL Normal 4-19 [facility] Comment on above: Performed By: #### M 200.1000, L509.7001, L101.9900, L501.6710 #### [facility] Laboratory [address] [place], [address] Basophil percentageOrdered B y: Inderjit Gillespie on 09-01-2024 Basophils/100 WBC (Bld) 0.4 % 0-1 [facility] Bilirubin Test strip Ql (U)O rdered By: Inderjit Gillespie on 09-01-2024 Bilirubin Ql (U) Negative Negative [facility] Blood cultureOrdered By: Magnolia Black on 09-01-2024 Bacteria identified Cx Nom (Bld) No growth in 5 days. [facility] Brain/Head without Contrasto n 09-01-2024 Brain/Head without Contrast [facility] Imaging Services [address] [place] [address] Brain/Head without Contrast MR#: [id number] Acct: [id number] Name: ROBY FLORES Rep #: [id number] : 1935 M 89 From: Jose harris MD PCP: Dr. Stas Mora MD Status: REG ER Study: Brain/Head without Contrast Date of Exam: 08/21 05/17 Exam# [id number] Ordering Dr: Inderjit Gillespie MD PROCEDURE: BRAIN/HEAD [...] of the left maxillary sinus. Reading Location: [place] [address] CC: Dr. Inderjit Gillespie MD; Dr. 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, [address] Absolute Neut 11.3 X10 3/uL High 2.0-7.7 [facility] Comment on above: Performed By: #### M 200.1000, L509.7001, L101.9900, L501.6710 #### [facility] Laboratory [address] [place], [address] Basophils/100 WBC (Bld) 0.4 % Normal 0-1 [facility] Comment on above: Performed By: #### M 200.1000, L509.7001, L101.9900, L501.6710 #### [facility] Laboratory [address] [place], [address] Eosinophils/100 WBC (Bld) 1.2 % Normal 0-5 [facility] Comment on above: Performed By: #### M 200.1000, L509.7001, L101.9900, L501.6710 #### [facility] Laboratory [address] [place], [address] Erythrocyte distribution width (RBC) [Ratio] 17.2 % High 11.6-14.6 [facility] Comment on above: Performed By: #### M 200.1000, L509.7001, L101.9900, L501.6710 #### [facility] Laboratory [address] [place], [address] Hematocrit (Bld) [Volume fraction] 36.8 % Low 40-54 [facility] Comment on above: Performed By: #### M 200.1000, L509.7001, L101.9900, L501.6710 #### [facility] Laboratory [address] [place], [address] Hemoglobin (Bld) [Mass/Vol] 11.6 g/dL Low 13.0-16.5 [facility] Comment on above: Performed By: #### M 200.1000, L509.7001, L101.9900, L501.6710 #### [facility] Laboratory [address] [place], [address] IG% 0.400 Normal 0.0-0.9 [facility] Comment on above: Result Comment: IG% - Immature Granulocytes (promyelocytes, myelocytes and metamyelocytes) > 1% indicates that a LEFT SHIFT is Present. Performed By: #### M 200.1000, L509.7001, L101.9900, L501.6710 #### [facility] Laboratory [address] [place], [address] Lymphocytes/100 WBC (Bld) 4.8 % Low 19-41 [facility] Comment on above: Performed By: #### M 200.1000, L509.7001, L101.9900, L501.6710 #### [facility] Laboratory [address] [place], [address] MCH (RBC) [Entitic mass] 24.6 pg Low 27.0-32.0 [facility] Comment on above: Performed By: #### M 200.1000, L509.7001, L101.9900, L501.6710 #### [facility] Laboratory [address] [place], [address] MCHC (RBC) [Mass/Vol] 31.5 g/dL Low 32-36 [facility] Comment on above: Performed By: #### M 200.1000, L509.7001, L101.9900, L501.6710 #### [facility] Laboratory [address] [place], [address] MCV (RBC) [Entitic vol] 78.0 fL Low 80-94 [facility] Comment on above: Performed By: #### M 200.1000, L509.7001, L101.9900, L501.6710 #### [facility] Laboratory [address] [place], [address] Monocytes/100 WBC (Bld) 5.7 % Normal 0-10 [facility] Comment on above: Performed By: #### M 200.1000, L509.7001, L101.9900, L501.6710 #### [facility] Laboratory [address] [place], [address] Neutrophils/100 WBC (Bld) 87.5 % High 47-70 [facility] Comment on above: Performed By: #### M 200.1000, L509.7001, L101.9900, L501.6710 #### [facility] Laboratory [address] [place], [address] Nucleated RBC (Bld) [#/Vol] 0 10*3/uL Normal 0-5 [facility] Comment on above: Performed By: #### M 200.1000, L509.7001, L101.9900, L501.6710 #### [facility] Laboratory [address] [place], [address] Platelet mean volume (Bld) [Entitic vol] 9.4 fL Normal 6.2-12.0 [facility] Comment on above: Performed By: #### M 200.1000, L509.7001, L101.9900, L501.6710 #### [facility] Laboratory [address] [place], [address] Platelets (Bld) [#/Vol] 258 10*3/uL Normal 150-450 [facility] Comment on above: Performed By: #### M 200.1000, L509.7001, L101.9900, L501.6710 #### [facility] Laboratory [address] [place], [address] RBC (Bld) [#/Vol] 4.72 10*6/uL Normal 4.6-6.2 [facility] Comment on above: Performed By: #### M 200.1000, L509.7001, L101.9900, L501.6710 #### [facility] Laboratory [address] [place], [address] RDW SD 48.2 fl High 35.1-43.9 [facility] Comment on above: Performed By: #### M 200.1000, L509.7001, L101.9900, L501.6710 #### [facility] Laboratory [address] [place], [address] WBC (Bld) [#/Vol] 12.9 10*3/uL High 4.4-11.0 [facility] Comment on above: Performed By: #### M 200.1000, L509.7001, L101.9900, L501.6710 #### [facility] Laboratory [address] [place], [address] CNPNon 09-01-2024 [facility] Telephone (PHMEWO) ROBY FLORES ([id number]) 1935 M Date Time Provider Department 09/01/24 RUSSELL AGUAYO PHMEWO During your visit today, we recorded the following information about you: Russell Aguayo [facility] 09/01/2024 10:01 AM Signed PCP [...] affordable alvarado using Good Rx coupons. At [facility] (his current pharmacy), he can get a 1 mo supply for ~$30. If he switches the prescription to [facility], he can get a 1 mo supply for ~$20. See coupons below. Rivastigmine patches are also available via GoodRx. It appears the cheapest option is through [facility], in which he can get 30 patches for $52. Coupon also below. Sending to PCP to review and provide patient with coupon card information. Russell Aguayo, Saúl, [facility] Primary Care Clinical Pharmacist Memantine coupon at [facility] Memantine coupon at [facility] Rivastigmine patches coupon at [facility] Luciana Cisneros MD 09/01/2024 1:27 PM Signed Rahul Chau, Staff please let patient know what the pharmacist as opined on. Regards, Haydee Mares MD, RUDY 09/01/2024 2:49 PM Signed [employer]patricia message sent Allergies As of Date: 09/01/2024 [...] Status:Closed by RUSSELL AGUAYO on 09/01/24 Normal [facility] COVID 19 AG RAPID (EMILY [...] Card Normal [facility] Comment on above: Performed By: #### M 200.1000, L509.7001, L101.9900, L501.6710 #### [facility] Laboratory [address] [place], [address] COVID-19 virus antigen assay Ordered By: Marta Black on 09-01-2024 SARS-CoV-2 (COVID-19) Ag IA.rapid Ql (Resp) [facility] CRPon 09-01-2024 C-REACTIVE PROT 26.80 mg/L High 0.0-3.0 [facility] Comment on above: Performed By: #### M 200.1000, L509.7001, L101.9900, L501.6710 #### [facility] Laboratory [address] [place], [address] Carbon dioxide, total [Moles /volume] in Central venous bloodOrdered By: Inderjit Gillespie on 09-01-2024 CO2 [Moles/Vol] 24.3 mmol/L 21.0-32.0 [facility] Chest 1 View (Portable)on Chest 1 View (Portable) [facility] Imaging Services [address] [place], [place] [address] Chest 1 View (Portable) MR#: [id number] Acct: [id number] Name: ROBY FLORES Rep #: [id number] : 1935 M 89 From: Jose harris MD PCP: Dr. Stas Mora MD Status: REG ER Study: Chest 1 View (Portable) Date of Exam: 09/01/24 Exam# [id number] Ordering Dr: Inderjit Gillespie MD PROCEDURE: CHEST [...] No acute abnormality is seen. Reading Location: [facility] CC: Dr. Inderjit Gillespie MD; Dr. Stas Mora MD Offshore Wind Turbine Technician: Signed Normal [facility] Chloride assayOrdered By: Aries Gillespie on 09-01-2024 Chloride [Moles/Vol] 105 mmol/L 98-108 [facility] Emergency Department Summary on 09-01-2024 Emergency Department Summary [facility] Medical Records Department [address] [place] [address] Emergency Department Summary 09/01/24 MR#: [id number] Acct: [id number] Name: ROBY FLORES Rep #: [id number] : 1935 89 From: Inderjit Gillespie MD [...] shoulders elbows and wrist. He has normal nurse consultant strength. Neurologically he is awake alert. Answering [...] included)... Normal [facility] Eosinophil percentageOrdered By: Inderjit Gillespie on 09-01-2024 Eosinophils/100 WBC (Bld) 1.2 % 0-5 [facility] Erythrocyte Sed Rateon 09-01 SED RATE 2 mm/hr Normal 0-20 [facility] Comment on above: Performed By: #### M 200.1000, L509.7001, L101.9900, L501.6710 #### [facility] Laboratory [facility] [place], [address] Erythrocyte distribution wid th ratioOrdered By: Inderjit Gillespie on 09-01-2024 Erythrocyte distribution width (RBC) [Ratio] 17.2 % High 11.6-14.6 [facility] Erythrocyte distribution wid th standard deviationOrdered By: Inderjit Gillespie on 09-01-2024 Erythrocyte distribution width (RBC) [Ratio] 48.2 fl High 35.1-43.9 [facility] Erythrocyte sedimentation ra teOrdered By: Marta Black on 09-01-2024 ESR (Bld) [Velocity] 2 mm/h 0-20 [facility] Glomerular filtration rate ( GFR) estimation/1.73 sq m using serum, plasma, or whole bOrdered By: Inderjit Gillespie on 09-01-2024 GFR/1.73 sq M.predicted among non-blacks MDRD (S/P/Bld) [Vol rate/Area] 86 mL/min/{1.73_m2} >60 [facility] Comment on above: mL/min/1.73m2 CKD-EP I Creatinine Equation (2020) H AND P Exam - [facility] 09-01-2024 H&P Exam - Hospitalist [facility] Medical Records Department [address] [place] [address] H P Exam - Hospitalist 09/01/24 1018 MR#: [id number] Acct: [id number] Name: ROBY FLORES Rep #: [id number] : 1935 89 From: Kathy Wells MD PCP: Dr. Stas Mora MD Status:ADM GERMAN Location: [address] HPI - General General Date of [...] in the ED were BP of 180/89, WI of 87, RR of 18 and temp [...] debility and weakness due to mechanical fall. [facility] Medical History Chronic anticoagulation TIA (transient [...] included)... Normal [facility] Hematocrit Auto (Bld) [Volum e fraction]Ordered By: Inderjit Gillespie on 09-01-2024 Hematocrit (Bld) [Volume fraction] 36.8 % Low 40-54 [facility] Hemoglobin measurementOrdere d By: Inderjit Gillespie on 09-01-2024 Hemoglobin (Bld) [Mass/Vol] 11.6 g/dL Low 13.0-16.5 [facility] Hips B/L min 2 views w/ Pelv adolfo 09-01-2024 Hips B/L min 2 views w/ Pelvis [facility] Imaging Services [address] [place] [address] Hips B/L min 2 views w/ Pelvis MR#: [id number] Acct: [id number] Name: SANDRAROBY Radha Rep #: [id number] : 1935 M 89 From: Jose harris MD PCP: Dr. Stas Mora MD Status: REG ER Study: Hips B/L min 2 views w/ Pelvis Date of Exam: 0 09/01/24 Exam# [id number] Ordering Dr: Inderjit Gillespie MD PROCEDURE: HIPS [...] No fracture or dislocation present. Reading Location: [place] [address] CC: Dr. Inderjit Gillespie MD; Dr. Stas Mora MD Offshore Wind Turbine Technician: Signed Normal [facility] Immature granulocytes/100 WB C Auto (Bld)Ordered By: Inderjit Gillespie on 09-01-2024 Immature granulocytes/100 WBC (Bld) 0.400 % 0.0-0.9 [facility] Comment on above: IG% - Immature Granu locytes (promyelocytes, myelocytes and metamyelocytes) > 1% indicates that a LEFT SHIFT is Present. International normalized rat io (INR) calculationOrdered By: Inderjit Gillespie on 09-01-2024 INR Coag (Bld) [Relative time] 1.8 {INR} [facility] Ketones Test strip Ql (U)Ord ered By: Inderjit Gillespie on 09-01-2024 Ketones Ql (U) Negative Negative [facility] L509.7001on 09-01-2024 Procalcitonin 0.07 ng/mL Normal <=0.10 [facility] Comment on above: Result Comment: Inte rpretation: [...] L501.6710 #### [facility] Laboratory [address] [place], [address] MCV (mean corpuscular volume ) determinationOrdered By: Inderjit Gillespie on 09-01-2024 MCV (RBC) [Entitic vol] 78.0 fL Low 80-94 [facility] Mean corpuscular hemoglobin (MCH) determinationOrdered By: Inderjit Gillespie on 09-01-2024 MCH (RBC) [Entitic mass] 24.6 pg Low 27.0-32.0 [facility] Mean corpuscular hemoglobin concentration (MCHC) determinationOrdered By: Inderjit Gillespie on 09-01-2024 MCHC (RBC) [Mass/Vol] 31.5 g/dL Low 32-36 [facility] Mean platelet volume determi nationOrdered By: Inderjit Gillespie on 09-01-2024 Platelet mean volume (Bld) [Entitic vol] 9.4 fL 6.2-12.0 [facility] Microscopic analysis of urin e for red blood cells (RBC)Ordered By: Inderjit Gillespie on 09-01-2024 Microscopic analysis of urine for red blood cells (RBC) 0 SEEN /hpf 0- [facility] Monocyte percentageOrdered B y: Inderjit Gillespie on 09-01-2024 Monocytes/100 WBC (Bld) 5.7 % 0-10 [facility] Mucus LM Ql (Urine sed)Order ed By: Inderjit Gillespie on 09-01-2024 Mucus Ql (Urine sed) 0 SEEN /hpf [facility] Neutrophil percentageOrdered By: Inderjit Gillespie on 09-01-2024 Neutrophils/100 WBC (Bld) 87.5 % High 47-70 [facility] Nitrite Test strip Ql (U)Ord ered By: Inderjit Gillespie on 09-01-2024 Nitrite Ql (U) Negative Negative [facility] Nucleated red blood cell per centageOrdered By: Inderjit Gillespie on 09-01-2024 Nucleated RBC/100 WBC (Bld) [Ratio] 0 % 0-5 [facility] Platelet countOrdered By: Aries Gillespie on 09-01-2024 Platelets (Bld) [#/Vol] 258 10*3/uL 150-450 [facility] Potassium measurement (mass/ volume)Ordered By: Inderjit Gillespie on 09-01-2024 Potassium (Unsp spec) [Mass/Vol] 3.7 mmol/L 3.3-5.1 [facility] Procalcitonin [Mass/volume] in Serum or Plasma by ImmunoassayOrdered By: Marta Black on 09-01-2024 Procalcitonin IA [Mass/Vol] 0.07 ng/mL <0.11 [facility] Comment on above: Interpretation:<0.10 -0.25 ng/mL: Antibiotic [...] High Negative [facility] Prothrombin Time w/INRon INR Coag (PPP) [Relative time] 1.8 {INR} Normal [facility] Comment on above: Performed By: #### M 200.1000, L509.7001, L101.9900, L501.6710 #### [facility] Laboratory [address] [place], [address] PT Coag (PPP) [Time] 21.4 s High 11.7-14.9 [facility] Comment on above: Performed By: #### M 200.1000, L509.7001, L101.9900, L501.6710 #### [facility] Laboratory [address] [place], [address] Prothrombin timeOrdered By: Inderjit Gillespie on 09-01-2024 PT Coag (PPP) [Time] 21.4 s High 11.7-14.9 [facility] RBC Auto (Bld) [#/Vol]Ordere d By: Inderjit Gillespie on 09-01-2024 RBC (Bld) [#/Vol] 4.72 10*6/uL 4.6-6.2 [facility] Respiratory pathogens detect ion panel by molecular detection methodOrdered By: Marta Black on 09-01-2024 Respiratory pathogens DNA and RNA panel LOLI+probe (Resp) [facility] Serum creatinine measurement (mass/volume)Ordered By: Inderjit Gillespie on 09-01-2024 Creatinine [Mass/Vol] 0.77 mg/dL 0.70-1.20 [facility] Serum glucose measurement (m ass/volume)Ordered By: Inderjit Gillespie on 09-01-2024 Glucose [Mass/Vol] 112 mg/dL High 70-99 [facility] Serum or plasma C reactive p rotein measurement (mass/volume)Ordered By: Marta Black on 09-01-2024 CRP [Mass/Vol] 26.80 mg/L High 0.0-3.0 [facility] Serum or plasma calcium alvaro urement (mass/volume)Ordered By: Inderjit Gillespie on 09-01-2024 Calcium [Mass/Vol] 8.8 mg/dL 7.6-11.0 [facility] Serum or plasma urea nitroge n measurement (mass/volume)Ordered By: Inderjit Gillespie on 09-01-2024 Urea nitrogen [Mass/Vol] 17 mg/dL 4-19 [facility] Sodium levelOrdered By: Inderjit Gillespie on 09-01-2024 Sodium [Moles/Vol] 139 mmol/L 133-145 [facility] Squamous epithelial cells de tection in urine sediment by light microscopyOrdered By: Inderjit Gillespie on 09-01-2024 Epithelial cells.squamous LM Ql (Urine sed) 0 SEEN /hpf 0-5 [facility] Urinalysis, Completeon 09-01 BACTERIA 0 SEEN Normal None Seen [facility] Comment on above: Order Comment: CLEAN CATCH Performed By: #### L 400.0001 #### [facility] Laboratory [address] [place], [address] EPI,SQUAMOUS 0 SEEN Normal 0-5 [facility] Comment on above: Order Comment: CLEAN CATCH Performed By: #### L 400.0001 #### [facility] Laboratory [address] [place], [place], [address] Mucus Ql (Urine sed) 0 SEEN Normal [facility] Comment on above: Order Comment: CLEAN CATCH Performed By: #### L 400.0001 #### [facility] Laboratory [address] [place], [address] RBC 0 SEEN Normal 0-5 [facility] Comment on above: Order Comment: CLEAN CATCH Performed By: #### L 400.0001 #### [facility] Laboratory [address] [place], [address] WBC 0 SEEN Normal 0-5 [facility] Comment on above: Order Comment: CLEAN CATCH Performed By: #### L 400.0001 #### [facility] Laboratory [address] [place], [place], [address] Urine clarityOrdered By: Mario Gillespie on 09-01-2024 Clarity (U) Clear Clear [facility] Urine color determinationOrd ered By: Inderjit Gillespie on 09-01-2024 Color (U) Yellow Yellow [facility] Urine glucose detectionOrder ed By: Inderjit Gillespie on 09-01-2024 Glucose Ql (U) Normal mg/dl Normal [facility] Urine leukocyte esterase det ection by dipstickOrdered By: Inderjit Gillespie on 09-01-2024 Leukocyte esterase Test strip Ql (U) Negative Negative [facility] Urine pHOrdered By: Inderjit pack on 09-01-2024 pH (U) 8.0 [pH] 5.0 - 8.0 [facility] Urine sediment bacteria coun t by microscopy (number/high power field)Ordered By: Inderjit Gillespie on 09-01-2024 Bacteria LM.HPF (Urine sed) [#/Area] 0 /[HPF] None Seen [facility] Urine specific gravity measu rementOrdered By: Inderjit Gillespie on 09-01-2024 Specific gravity (U) [Rel density] 1.010 1.002-1.03 0 [facility] Urine urobilinogen measureme ntOrdered By: Inderjit Gillespie on 09-01-2024 Urobilinogen Ql (U) 4 mg/dl High Normal [facility] White blood cell (WBC) count Ordered By: Inderjit Gillespie on 09-01-2024 WBC (Bld) [#/Vol] 12.9 10*3/uL High 4.4-11.0 [facility] White blood cell countOrdere d By: Inderjit Gillespie on 09-01-2024 White blood cell count 0 SEEN /hpf 0-5 [facility] CNOVon 08-31-2024 CNOV Office Visit (RAMBOR ) SANDRAROBY E ([id number]) 1935 M Date Time Provider Department 08/31/24 [...] and believing his brother, who lives in [place], was present. 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 Additionally, [...] tablet wa (more content not included)... Normal [facility] 08-31-2024 CNPN Telephone (PHAMTE) FLORESROBY ([id number]) 1935 M Date Time Provider Department 08/31/24 CORETTA JALLOH During your visit today, we recorded the following information about you: Coretta Jalloh riya 08/31/2024 2:13 PM Signed [facility] Anticoagulation Episode Summary Anticoagulation Care Providers Provider Role Specialty Phone number Stas Mora MD Referring Family Medicine [phone] Roby Garcia Sandra is a 89 year [...] Pharmacy Anticoagulation Clinic Pharmacy Anticoagulation Clinic Pager: [phone]. Coretta Jalloh RPh 09/28/2024 11:30 AM Signed Per TE on 09/21, pt is in [facility] living for rehab. He has been for for nearly 3 weeks now. Will check back next week before we call Maria Guadalupe. Will watch for notes of discharge. Coretta Jalloh [facility] Hakan Jallohantha [facility] 10/05/2024 2:05 PM Signed Spoke to Maria Guadalupe. She said he is at an [facility] and they are managing his AC but she isn't aware of results. She isn't sure of discharge timing. She said maybe check back in a few weeks. Will check back in October for any updates. Coretta Jalloh [facility] Adrian (Correctional Nurse)Elana 10/27/2024 4:17 PM Signed Updating PCC LTC / Rehab list. Called and stp patient's significant other, Maria Guadalupe. She stated patient is still in SNF at this time. She was agreeable to f/u in a few weeks. Tracker updated for f/u in 2-3 weeks. Elana Campbell CPhT (Accounting Director) Pharmacy Anticoagulation Clinic Satish (Correctional Nurse)Parmjit 11/25/2024 3:45 PM Signed Left message requesting an update. Patient has appt with PCP 12/05. Will update tracker to that day to see if there are any updates. Adrian (Correctional Nurse)Elana 12/08/2024 4:41 PM Signed Updating PCC LTC / Rehab list. Attempted to call patient's caregiver, Maria Guadalupe, to get update on LTC/SNF status. Message left requesting a return call to [phone], option 2. Elana Campbell CPhT (Accounting Director) [facility] Adrian (Correctional Nurse), Elana 12/22/2024 3:52 PM Signed Updating [facility]CC LTC / Rehab list. Attempted to call patient's caregiver, Maria Guadalupe, to get update on LTC/SNF status. Message left requesting a return call to [phone], option 2. Elana Campbell CPhT (Accounting Director) [facility] Adrian (Correctional Nurse), Elana 12/29/2024 5:26 PM Signed Updating [facility] LTC / Rehab list. Attempted to call patient's caregiver, Maria Guadalupe, to get update on LTC/SNF status. Message left requesting a return call to [phone], option 2. Elana Campbell CPhT (Accounting Director) [facility]tico[facility] Adrian (Correctional Nurse), (more content not included)... Normal [facility] PT panel Coag (PPP)on 2024 INR Coag (PPP) [Relative time] 1.9 {INR} High 0.9-1.3 [facility] Comment on above: Order Comment: Stone parmar Type: BLOOD SPECIMENOrdering Facility: [facility] Address: [address] [place] [address] Result Comment: Mary min K Antagonist (VKA) Therapeutic Range: INR 2 to 3 (Target INR of 2.5) Note: For patients treated with VKA drugs, such as warfarin, the [employer] 2012 Guideline recommends [...] 70: 252-289 Performed By: #### 3 4528-0 ####[facility] EMERALD COASTNCRachel [id number] [place] [address] [place] PT Coag (PPP) [Time] 19.2 s High <13.1 [facility] Comment on above: Order Comment: Stone parmar Type: BLOOD SPECIMENOrdering Facility: [facility] Address: [address] [place] [address] Performed By: #### 3 4528-0 ####[facility] EMERALD COASTJERMAIN [id number] [place] [id number] [place] Gene 08-03-2024 CNPN Telephone (PHAMTE) ROBY FLORES ([id number]) 1935 M Date Time Provider Department 08/03/24 CORETTA JALLOH During your visit today, we recorded the following information about you: Coretta Jalloh 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 Coretta Jalloh [facility] Clinical Pharmacist, Pharmacy Anticoagulation Clinic Pharmacy Anticoagulation Clinic Pager: [phone]. Adrian (ProntoForms)Elana 08/03/2024 11:01 AM Signed PATIENT CALL Patient [...] 08/31/2024 Caregiver verbalized understanding. Will route to [facility] as FYI. 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/24/2011 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 [Z79.01]09/22/2016 Paroxysmal atrial fibrillation (HCC) [I48.0] 09/22/2016 Hyperlipidemia [E78.5] 08/26/2022 Encounter Status:Closed by CORETTA JALLOH on 08/03/24 Normal [facility] PT panel Coag (PPP)on 2024 INR Coag (PPP) [Relative time] 2.5 {INR} High 0.9-1.3 [facility] Comment on above: Order Comment: Speci men Type: BLOOD SPECIMEN [facility] Address: [address] [place] [address] Result Comment: Mary min K Antagonist (VKA) Therapeutic Range: INR 2 to 3 (Target INR of 2.5) Note: For patients treated with VKA drugs, such as warfarin, the [employer] 2012 Guideline recommends [...] By: #### 3 4528-0 #### [facility] [id number] [address] [place] [address] [place] PT Coag (PPP) [Time] 24.3 s High <13.1 [facility] Comment on above: Order Comment: Speci men Type: BLOOD SPECIMEN [facility] Address: [address] [place] [address] Performed By: #### 3 4528-0 #### [facility]ITAL[facility] [id number] [address] [place] [address] OF [facility] CNOVon 07-28-2024 CNOV Office Visit (QUIQUEPWS ) ROBY FLORES ([id number]) 1935 M Date Time Provider Department 07/28/24 11:20 AM STAS MORA FAMPWS During your visit today, we recorded the following information about you: Pulse Respiration Blood pressure Weight 56/minute 16/minute 136/78 74.1 kg Stas oMra MD 07/28/2024 11:21 AM Signed Chief Complaint [...] Coronary atherosclerosis of unspecified type of vessel, klawock or graft Coronary artery disease Other and [...] - Fully Assessed Reason for Visit: Lump [62750] Cmt: Elbow Primary Visit Diagnosis:Bursitis of right elbow, unspecified bursa [M70.31] Prescriptions as of 07/28/2024 - memantine (NAMENDA) 10 mg tablet Take 1 tablet by mouth two times a day. - atorvastatin (LIPITOR) 40 mg tablet Take 1 tablet by mouth daily at bedtime. - warfarin (COUMADIN) 2.5 mg tablet Take as directed (more content not included)... 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/22/2016 Paroxysmal atrial fibrillation (HCC) [I48.0] 09/22/2016 Hyperlipidemia [E78.5] 08/26/2022 Encounter Status:Closed by WENDY FAULKNER on 07/18/24 [facility] Gene 07-06-2024 CNPN Telephone (PHAMTE) SANDRAROBY Garcia ([id number]) 1935 M Date Time Provider Department 07/06/24 CORETTA JALLOH During your visit today, we recorded the following information about you: Coretta Jalloh RPh 07/06/2024 10:16 AM Signed [facility] Anticoagulation Episode Summary Anticoagulation Care Providers Provider Role Specialty Phone number Stas Mora MD Referring Family Medicine [phone] Roby Radha Flores is a 88 year [...] ALLERGIES No Known Allergies 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 Coretta Jalloh [facility] Clinical Pharmacist, Pharmacy Anticoagulation Clinic Pharmacy Anticoagulation Clinic Pager: [phone]. 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]09/22/2016 Paroxysmal atrial fibrillation (HCC) [I48.0] 09/22/2016 Hyperlipidemia [E78.5] 08/26/2022 Encounter Status:Closed by CORETTA JALLOH on 07/06/24 Normal [facility] PT panel Coag (PPP)on 2024 INR Coag (PPP) [Relative time] 2.1 {INR} High 0.9-1.3 [facility] Comment on above: Order Comment: Speci men Type: BLOOD SPECIMENOrdering Facility: [facility] Address: [address] [place] [address] Result Comment: Mary min K Antagonist (VKA) Therapeutic Range: INR 2 to 3 (Target INR of 2.5) Note: For patients treated with VKA drugs, such as warfarin, the [employer] 2012 Guideline recommends [...] Performed By: #### 3 4528-0 ####[facility] BERNICE CLINENCLIZZ [id number] [place] [address] [place] PT Coag (PPP) [Time] 21.0 s High <13.1 [facility] Comment on above: Order Comment: Speci men Type: BLOOD SPECIMENOrdering Facility: [facility] Address: [address] [facility] [address] Performed By: #### 3 4528-0 ####[facility] CLINENCLIA [id number] [address] OF [place] CNPNon 06-29-2024 CNPN Telephone (PHAMTE) ROBY FLORES ([id number]) 1935 M Date Time Provider Department 06/29/24 CORETTA JALLOH During your visit today, we recorded the following information about you: Coretta Jalloh RPh 06/29/2024 9:54 AM Signed [facility] Anticoagulation Episode Summary Anticoagulation Care Providers Provider Role Specialty Phone number Stas Mora MD Referring Family Medicine [phone] Roby Martinezenter is a 88 year old [...] Sat; 2.5 mg all other days Sent [employer] message Advised patient to continue current weekly dose as noted above Next home INR check scheduled on 07/06/2024 Patient advised to call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 hemistry - challengeon 12-22-2021 Magnesium [Mass/Vol] 2.1 mg/dL 1.6-2.6 [facility] Work Phone: Laboratory - Coagulationon 1 PT Coag (PPP) [Time] 27.0 s 11.7-14.9 [facility] Work Phone: No Panel Informationon 12-22 Thyroid Stimulating Hormone (TSH) 0.42 uIU/mL 0.358-3.74 [facility] Work Phone: Serum or plasma cholesterol in HDL measurement (mass/volume)on 12-22-2021 Cholesterol in HDL [Mass/Vol] 35 mg/dL >40 [facility] Work Phone: Comment on above: The drugs N-Acetylcy steine and Metamizole may falsely depress this assay. Reference Range HDL <40 mg/dL Low HDL Cholesterol HDL >or= 60 mg/dL High HDL Cholesterol Serum or plasma cholesterol in VLDL measurement (mass/volume)on 12-22-2021 Cholesterol in VLDL [Mass/Vol] 15 mg/dL 5-40 [facility] Work Phone: Serum or plasma low density lipoprotein (LDL) cholesterol measurement (mass/volume)on 12-22-2021 Cholesterol in LDL [Mass/Vol] 102 mg/dL 0-130 [facility] Work Phone: Whole blood hemoglobin A1c/t otal hemoglobin ratio (mass fraction)on 12-22-2021 HbA1c (Bld) [Mass fraction] 5.9 % 3.8-5.6 [facility] Work Phone: Comment on above: Normal < 5.7 % Predi abetic 5.7 - 6.4 % Diabetic >or= 6.5 % Please note range changes. Absolute lymphocyte counton 12-21-2021 Lymphocytes Auto (Unsp spec) [#/Vol] 1.23 10*3/uL 0.83-4.51 [facility] Work Phone: Basophil percentageon 2021 Basophils/100 WBC (Bld) 0.4 % 0-1 [facility] Work Phone: Chloride [Moles/Vol] 106 mmol/L 98-107 [facility] Work Phone: Eosinophils/100 WBC (Bld) 1.4 % 0-5 [facility] Work Phone: Glucose [Mass/Vol] 107 mg/dL 74-106 [facility] Work Phone: Comment on above: Fasting Glucose resu lt from 100 to 125 mg/dL suggests IMPAIRED HOMEOSTASIS per A.D.A. criteria. Neutrophils (Bld) [#/Vol] 5.7 10*3/uL 2.0-7.7 [facility] Work Phone: Neutrophils/100 WBC (Bld) 72.4 % 47-70 [facility] Work Phone: Potassium [Moles/Vol] 3.7 mmol/L 3.5-5.1 [facility] Work Phone: Sodium [Moles/Vol] 141 mmol/L 136-145 [facility] Work Phone: WBC (Bld) [#/Vol] 7.9 10*3/uL 4.4-11.0 [facility] Work Phone: [phone] Blood erythrocytes count (nu mber/volume)on 12-21-2021 RBC (Bld) [#/Vol] 4.85 10*6/uL 4.6-6.2 [facility] Work Phone: Blood hemoglobin measurement (mass/volume)on 12-21-2021 Hemoglobin (Bld) [Mass/Vol] 14.5 g/dL 13.0-16.5 [facility] Work Phone: [phone] Blood lymphocytes/100 leukoc yteson 12-21-2021 Lymphocytes/100 WBC (Bld) 15.5 % 19-41 [facility] Work Phone: Blood monocytes/100 leukocyt eson 12-21-2021 Monocytes/100 WBC (Bld) 9.9 % 0-10 [facility] Work Phone: Blood platelet mean volumeon 12-21-2021 Platelet mean volume (Bld) [Entitic vol] 10.2 fL 6.2-12.0 [facility] Work Phone: Determination of erythrocyte mean corpuscular volume (MCV)on 12-21-2021 MCV (RBC) [Entitic vol] 92.0 fL 80-94 [facility] Work Phone: Hematocrit Auto (Bld) [Volum e fraction]on 12-21-2021 Hematocrit (Bld) [Volume fraction] 44.6 % 40-54 [facility] Work Phone: INR in Blood by Coagulation assayon 12-21-2021 INR Coag (Bld) [Relative time] 2.3 {INR} [facility] Work Phone: Laboratory - Chemistry and C hemistry - challengeon 12-21-2021 CO2 [Moles/Vol] 29.0 mmol/L 21.0-32.0 [facility] Work Phone: Urea nitrogen/Creatinine [Mass ratio] 21.8 mg/mg 10-20 [facility] Work Phone: Laboratory - Coagulationon 1 aPTT Coag (Bld) [Time] 36.6 s 24.1-36.2 [facility] Work Phone: PT Coag (PPP) [Time] 24.7 s 11.7-14.9 [facility] Work Phone: Laboratory - Hematology and Cell countson 12-21-2021 Erythrocyte distribution width (RBC) [Entitic vol] 42.2 fL 35.1-43.9 [facility] Work Phone: Erythrocyte distribution width (RBC) [Ratio] 12.5 % 11.6-14.6 [facility] Work Phone: Immature granulocytes/100 WBC (Bld) 0.400 % 0.0-0.9 [facility] Work Phone: Comment on above: IG% - Immature Granu locytes (promyelocytes, myelocytes and metamyelocytes) > 1% indicates that a LEFT SHIFT is Present. MCH (RBC) [Entitic mass] 29.9 pg 27.0-32.0 [facility] Work Phone: Nucleated RBC/100 WBC (Bld) [Ratio] 0 % 0-5 [facility] Work Phone: MCHC Auto (RBC) [Mass/Vol]on 12-21-2021 MCHC (RBC) [Mass/Vol] 32.5 g/dL 32-36 [facility] Work Phone: No Panel Informationon 12-21 Estimated Creatinine Clearance Calc 66.90 ml/min [facility] Work Phone: Estimated GFR (MDRD) Amer 107 mL/min >60 [facility] Work Phone: Comment on above: GFR Calc Estimated GFR (MDRD) Non-Af Amer 88 mL/min >60 [facility] Work Phone: Comment on above: Non- GFR Calc Troponin I High Sensitivity 13 pg/mL 3.0-78.0 [facility] Work Phone: Comment on above: Please Note: New Hiwot t Units and Gender Specific Reference Ranges. For more information see Policy Stat Procedure Bryan High Sensitivity Troponin (TNIH) and attachments. Platelets bldon 12-21-2021 Platelets (Bld) [#/Vol] 241 10*3/uL 150-450 [facility] Work Phone: Serum or plasma calcium alvaro urement (mass/volume)on 12-21-2021 Calcium [Mass/Vol] 9.2 mg/dL 8.5-10.1 [facility] Work Phone: Serum or plasma creatinine m easurement (mass/volume)on 12-21-2021 Creatinine [Mass/Vol] 0.87 mg/dL 0.70-1.30 [facility] Work Phone: Comment on above: The validity of the calculated GFR & GFRAA in patients over 70 years has not been determined. Clinical correlation is essential. Serum or plasma urea nitroge n measurement (mass/volume)on 12-21-2021 Urea nitrogen [Mass/Vol] 19 mg/dL 10-07 [facility] Work Phone: Thin prep Papanicolaou smear with manual screeningon 12-21-2021 Thin prep Papanicolaou smear with manual screening 6 08-04 [facility] Work Phone: CBC panel Auto (Bld)on 07-08 Erythrocyte distribution width (RBC) [Ratio] 13.1 % 11.5 - 15.0 % [facility] Hematocrit (Bld) [Volume fraction] 49.5 % 39.0 - 51.0 % [facility] Hemoglobin (Bld) [Mass/Vol] 15.9 g/dL 13.0 - 17.0 g/dL [facility] MCH (RBC) [Entitic mass] 29.6 pg 26.0 - 34.0 pg [facility] MCHC (RBC) [Mass/Vol] 32.1 g/dL 30.5 - 36.0 g/dL [facility] MCV (RBC) [Entitic vol] 92.2 fL 80.0 - 100.0 fL [facility] Nucleated RBC (Bld) [#/Vol] 10*3/uL <0.01 k/uL [facility] Platelet mean volume (Bld) [Entitic vol] 10.7 fL 9.0 - 12.7 fL [facility] Platelets (Bld) [#/Vol] 235 10*3/uL 150 - 400 k/uL [facility] RBC (Bld) [#/Vol] 5.37 10*6/uL 4.20 - 6.00 m/uL [facility] WBC (Bld) [#/Vol] 10.33 10*3/uL 3.70 - 11.00 k/uL [facility] XR Lumbar spine 3 Viewson IMPRESSION: 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 Offshore Wind Turbine Technician: EDUAR Transcribe Date/Time: Mar 13 2020 8:34A [...] spine are presented. FINDINGS: There are five ioq-cjh-tgmubmq lumbar vertebrae. No fracture or subluxations are noted. L5-S1 disc space narrowing is demonstrated. There is significant osteophyte formation. Kissing spine seen on lateral view. DIVISION OF RADIOLOGY Provider, [facility] - 03/13/2020 * * *Final [...] spine are presented. FINDINGS: There are five zes-hdc-zjgtkdz lumbar vertebrae. No fracture or subluxations are noted. L5-S1 disc space narrowing is demonstrated. There is significant osteophyte formation. Kissing spine seen on lateral view. 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 Offshore [employer] Turbine Technician: PSCB Transcribe Date/Time: Mar 13 2020 8:34A Dictated by : GABRIELLE BENTLEY MD This examination was interpreted and the report reviewed and electronically signed by: GABRIELLE BENTLEY MD on Mar 13 2020 8:35AM EST [facility] XR Lumbar spine 3 ViewsOrder ed By: Ccf Provider on 03-13-2020 [facility] XR Lumbar spine 3 Viewson Radiology Study observation (narrative) [facility] PROGRESSon 06-09-2017 PROGRESS HNO ID: [id number] Author: Vesta Marin PSR Service: (none) Author Type: (none) Type: Progress Notes Filed: 06/09/2017 4:13 PM Note Text: Spoke with the patient and scheduled his Corotid Doppler on June 24, 2017 at 9:[address] [facility] CNOVon 06-02-2017 CNOV Office Visit (AGCARDWST) -------ROB[facility] FLORES ([id number]) 1935 [facility] Department06/02/17 9:00 AM DARRELL OLIVEIRA [...] with treatment plan.This note was generated using [employer] voice recognition system, and there may besome [...] no significantchange.Electronic ally Signed:Darrell Oliveira, [facility] 2017 9:15 [facility]: Carmen Vasquez MD 06/02/2017 9:21 AM [...] 24, 2017 at9:00 amReferring Provider: DARRELL OLIVEIRA [[id number]]Allergies As of Date: 06/02/2017(No Known Allergies)Date Reviewed: 06/02/2017Reviewed by: Russell Breaux) Anaeblla - Fully AssessedReason for Visit: Recheck [92]Primary Visit Diagnosis:ASHD (arteriosclerotic heart disease) [I25.10] Other Visit Diagnosis:PAF (paroxysmal atrial fibrillation) ([facility]) [I48.0]Order(s):ECG B/O W INTERP (MED OFFICE) [ECG06] Order #: [id number] Fosinopril Sodium 40 mg tabletTake 1/2 tablet [...] the following areas and commit to making shelter changes. EAT A WHOLE FOOD, PLANT BASED [...] on file. Cosign accepted by STAS MORA MD[[id number]] on 09/30/2016 2:01 PM Fosinopril Sodium 40 [...] on file.Follow-up and Disposition History RecordedEncounter Number: [id number] Status:Closed by DARRELL OLIVEIRA MD on 06/02/17 [facility] PROGRESSon 06-02-2017 PROGRESS HNO ID: [id number] thor: Darrell Stahl: (none)Author Type: PhysicianType: Progress [...] with treatment plan.This note was generated using [employer] voice recognition system, and theremay be some [...] is nosignificant change.Electronically Signed:Darrell Oliveira [facility] 2017 9:15 [facility]: Stas Mora MD [facility] OBSOLETEon 03-02-2017 OBSOLETE Refill (AGCARDWST) -------ROBY FLORES ([id number]) 1935 MDate Time Provider Uhkuiqandn05/11/17 DARRELL OLIVEIRA AGCARDWST During your visit today, [...] FOR* 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 Vital Signs Date Time Vital Sign Value Performing Clinician Facility 01-06-2025 09:34-0400 Body height 182.[address] Stas Mora MD Work Phone: 6(515)003-655094 [place] [address] 09-06-2024 14:15-0400 Body temperature 98 [degF] Dr. Stas Mora MD Work Phone: 4(280)179-343951 [place] [address] 09-06-2024 14:15-0400 Diastolic blood pressure 88 mm[Hg] Dr. Stas Mora MD Work Phone: 6(384)268-206994 [place] [address] 09-06-2024 14:15-0400 Heart rate 78 /min Dr. Stas Mora MD Work Phone: 4(177)480-309694 [place] [address] 09-06-2024 14:15-0400 Respiratory rate 18 /min Dr. Stas Mora MD Work Phone: 1(220)606-945094 [place] [address] 09-06-2024 14:15-0400 SaO2% (BldA) [Mass fraction] 97 % Dr. Stas Mora MD Work Phone: 9(618)516-178394 [place] [address] 09-06-2024 14:15-0400 Systolic blood pressure 137 mm[Hg] Dr. Stas Mora MD Work Phone: 3(629)381-768294 [place] [address] 09-04-2024 12:05-0400 Inhaled oxygen flow rate 2 L/min Dr. Stas Mora MD Work Phone: 1(882)699-791851 [place] [address] 09-01-2024 11:52-0400 Body height 182.[address] Stas Mora MD Work Phone: 8(225)098-064251 [place] [address] 09-01-2024 11:52-0400 Body mass index (BMI) [Ratio] 21.6 kg/m2 Dr. Stas Mora MD Work Phone: 5(806)026-365051 [place] [address] 09-01-2024 11:52-0400 Body weight 72.[address] Stas Mora MD Work Phone: 5(519)070-243051 [place] [address] 09-01-2024 11:00-0400 Diastolic blood pressure 79 mm[Hg] Dr. Stas Mora MD Work Phone: 9(010)480-983451 [place] [address] 09-01-2024 11:00-0400 Heart rate 70 /min Dr. Stas Mora MD Work Phone: 6(987)164-840751 [place] [address] 09-01-2024 11:00-0400 Respiratory rate 18 /min Dr. Stas Mora MD Work Phone: 9(531)173-597651 [place] [address] 09-01-2024 11:00-0400 SaO2% (BldA) [Mass fraction] 98 % Dr. Stas Mora MD Work Phone: 0(905)966-429851 [place] [address] 09-01-2024 11:00-0400 Systolic blood pressure 180 mm[Hg] Dr. Stas Mora MD Work Phone: 8(501)112-694951 [place] [address] 09-01-2024 09:52-0400 Body temperature 98.9 [degF] Dr. Stas Mora MD Work Phone: 1(952)840-132751 [place] [address] 09-01-2024 07:31-0400 Body height 182.[address] Stas Mora MD Work Phone: 0(766)155-908451 [place] [address] 09-01-2024 07:31-0400 Body mass index (BMI) [Ratio] 23.4 kg/m2 Dr. Stas Mora MD Work Phone: 2(412)498-199851 [place] [address] 09-01-2024 07:31-0400 Body weight 78.[address] Stsa Mora MD Work Phone: 0(479)768-665251 [place] [address] 08-31-2024 11:05-0400 Body mass index (BMI) [Ratio] 22.35 kg/m2 Luciana Cisneros MD Work Phone: [facility] 08-31-2024 11:05-0400 Body weight 73.94 kg Luciana Cisneros MD Work Phone: [facility] 08-31-2024 11:05-0400 Diastolic blood pressure 74 mm[Hg] Luciana Cisneros MD Work Phone: [facility] 08-31-2024 11:05-0400 Heart rate 74 /min Luciana Cisneros MD Work Phone: [facility] 08-31-2024 11:05-0400 Respiratory rate 12 /min Luciana Cisneros MD Work Phone: [facility] 08-31-2024 11:05-0400 SaO2% (BldA) [Mass fraction] 98 % Luciana Cisneros MD Work Phone: [facility] 08-31-2024 11:05-0400 Systolic blood pressure 124 mm[Hg] Luciana Cisneros MD Work Phone: [facility] 07-28-2024 11:12-0400 Diastolic blood pressure 78 mm[Hg] Stas Mora MD Work Phone: [facility] 07-28-2024 11:12-0400 Systolic blood pressure 136 mm[Hg] Stas Mora MD Work Phone: [facility] 07-28-2024 11:10-0400 Body mass index (BMI) [Ratio] 22.4 kg/m2 Stas Mora MD Work Phone: [facility] 07-28-2024 11:10-0400 Body weight 74.1 kg Stas Mora MD Work Phone: [facility] 07-28-2024 11:10-0400 Heart rate 56 /min Stas Mora MD Work Phone: [facility] 07-28-2024 11:10-0400 Respiratory rate 16 /min Stas Mora MD Work Phone: [facility] 06-01-2024 14:52-0400 Body height 181.9 cm Luciana Cisneros MD Work Phone: [facility] 06-01-2024 14:52-0400 Body mass index (BMI) [Ratio] 22.33 kg/m2 Luciana Cisneros MD Work Phone: [facility] 06-01-2024 14:52-0400 Body weight 73.85 kg Luciana Cisneros MD Work Phone: [facility] 06-01-2024 14:52-0400 Diastolic blood pressure 60 mm[Hg] Luciana Cisneros MD Work Phone: [facility] 06-01-2024 14:52-0400 Heart rate 46 /min Luciana Cisneros MD Work Phone: [facility] 06-01-2024 14:52-0400 SaO2% (BldA) [Mass fraction] 98 % Luciana Cisneros MD Work Phone: [facility] 06-01-2024 14:52-0400 Systolic blood pressure 132 mm[Hg] Luciana Cisneros MD Work Phone: [facility] 05-26-2024 09:18-0500 Diastolic blood pressure 82 mm[Hg] Stas Mora MD Work Phone: [facility] 05-26-2024 09:18-0500 Systolic blood pressure 144 mm[Hg] Stas Mora MD Work Phone: [facility] 05-26-2024 09:06-0500 Body mass index (BMI) [Ratio] 22.19 kg/m2 Stas Mora MD Work Phone: [facility] 05-26-2024 09:06-0500 Body weight 73.5 kg Stas Mora MD Work Phone: [facility] 05-26-2024 09:06-0500 Heart rate 56 /min Stas Mora MD Work Phone: [facility] 05-26-2024 09:06-0500 Respiratory rate 18 /min Stas Mora MD Work Phone: [facility] 04-27-2024 09:34-0500 Body height 182 cm Luciana Cisneros MD Work Phone: [facility] 04-27-2024 09:34-0500 Body mass index (BMI) [Ratio] 22.51 kg/m2 Luciana Cisneros MD Work Phone: [facility] 04-27-2024 09:34-0500 Body weight 74.57 kg Luciana Cisneros MD Work Phone: [facility] 04-27-2024 09:34-0500 Diastolic blood pressure 62 mm[Hg] Luciana Cisneros MD Work Phone: [facility] 04-27-2024 09:34-0500 Heart rate 60 /min Luciana Cisneros MD Work Phone: [facility] 04-27-2024 09:34-0500 SaO2% (BldA) [Mass fraction] 98 % Luciana Cisneros MD Work Phone: [facility] 04-27-2024 09:34-0500 Systolic blood pressure 110 mm[Hg] Luciana Cisneros MD Work Phone: [facility] 11-26-2023 10:33-0400 Diastolic blood pressure 80 mm[Hg] Stas Mora MD Work Phone: [facility] 11-26-2023 10:33-0400 Systolic blood pressure 144 mm[Hg] Stas Mora MD Work Phone: [facility] 11-26-2023 10:22-0400 Body mass index (BMI) [Ratio] 21.95 kg/m2 Stas Mora MD Work Phone: [facility] 11-26-2023 10:22-0400 Body weight 71.4 kg Stas Mora MD Work Phone: [facility] 11-26-2023 10:22-0400 Heart rate 60 /min Stas Mora MD Work Phone: [facility] 11-26-2023 10:22-0400 Respiratory rate 18 /min Stas Mora MD Work Phone: [facility] 09-15-2023 08:38-0400 Body mass index (BMI) [Ratio] 24.52 kg/m2 Stas Mora MD Work Phone: [facility] 09-15-2023 08:38-0400 Body weight 79.74 kg Stas Mora MD Work Phone: [facility] 09-15-2023 08:38-0400 Diastolic blood pressure 84 mm[Hg] Stas Mora MD Work Phone: [facility] 09-15-2023 08:38-0400 Heart rate 76 /min Stas Mora MD Work Phone: [facility] 09-15-2023 08:38-0400 Respiratory rate 18 /min Stas Mora MD Work Phone: [facility] 09-15-2023 08:38-0400 Systolic blood pressure 138 mm[Hg] Stas Mora MD Work Phone: [facility] 08-14-2023 09:57-0400 Body mass index (BMI) [Ratio] 22.59 kg/m2 Stas Mora MD Work Phone: [facility] 08-14-2023 09:57-0400 Body weight 73.48 kg Stas Mora MD Work Phone: [facility] 08-14-2023 09:57-0400 Diastolic blood pressure 80 mm[Hg] Stas Mora MD Work Phone: [facility] 08-14-2023 09:57-0400 Heart rate 64 /min Stas Mora MD Work Phone: [facility] 08-14-2023 09:57-0400 Respiratory rate 14 /min Stas Mora MD Work Phone: [facility] 08-14-2023 09:57-0400 Systolic blood pressure 140 mm[Hg] Stas Mora MD Work Phone: [facility] 06-01-2023 15:08-0400 Body weight 75.75 kg Stas Mora MD Work Phone: [facility] 06-01-2023 15:08-0400 Diastolic blood pressure 90 mm[Hg] Stas Mora MD Work Phone: [facility] 06-01-2023 15:08-0400 Heart rate 82 /min Stas Mora MD Work Phone: [facility] 06-01-2023 15:08-0400 Respiratory rate 16 /min Stas Mora MD Work Phone: [facility] 06-01-2023 15:08-0400 SaO2% (BldA) [Mass fraction] 100 % Stas Mora MD Work Phone: [facility] 06-01-2023 15:08-0400 Systolic blood pressure 140 mm[Hg] Stas Mora MD Work Phone: [facility] 02-16-2023 13:57-0500 Diastolic blood pressure 62 mm[Hg] Stas Mora MD Work Phone: [facility] 02-16-2023 13:57-0500 Heart rate 62 /min Stas Mora MD Work Phone: [facility] 02-16-2023 13:57-0500 Respiratory rate 16 /min Stas Mora MD Work Phone: [facility] 02-16-2023 13:57-0500 Systolic blood pressure 110 mm[Hg] Stas Mora MD Work Phone: [facility] 02-10-2023 16:59-0500 Diastolic blood pressure 68 mm[Hg] [facility] 02-10-2023 16:59-0500 Heart rate 79 /min [facility] 02-10-2023 16:59-0500 Respiratory rate 12 /min [facility] 02-10-2023 16:59-0500 SaO2% (BldA) [Mass fraction] 98 % [facility] 02-10-2023 16:59-0500 Systolic blood pressure 153 mm[Hg] [facility] 02-10-2023 14:37-0500 Body mass index (BMI) [Ratio] 22.1 kg/m2 [facility] 02-10-2023 14:37-0500 Body weight 74.3 kg [facility] 02-10-2023 14:32-0500 Body height 182.88 cm [facility] 02-10-2023 14:32-0500 Body temperature 98 [degF] [facility] 11-17-2022 17:22-0400 Diastolic Blood Pressure Non-Invasive 68 1 STERLING FROMPunchTabT DO [facility] 11-17-2022 17:22-0400 Heart rate 76 /min STERLING [email or web address] DO [facility] 11-17-2022 17:22-0400 Respiratory rate 18 /min STERLING FROMPunchTabT DO [facility] 11-17-2022 17:22-0400 Systolic Blood Pressure Non-Invasive 126 1 STERLING FROMPunchTabT DO [facility] 11-17-2022 15:23-0400 Body height 185.4 cm STERLING [email or web address] DO [facility] 11-17-2022 15:23-0400 Body temperature 97.88 [degF] STERLING FROMPunchTabT DO [facility] 11-17-2022 15:23-0400 Body weight 79.6 kg STERLING FROMPunchTabT DO [facility] 11-17-2022 15:23-0400 Diastolic Blood Pressure Non-Invasive 70 1 STERLING [email or web address] DO [facility] 11-17-2022 15:23-0400 Heart rate 89 /min STERLING [email or web address] DO [facility] 11-17-2022 15:23-0400 Respiratory rate 18 /min STERLING [email or web address] DO [facility] 11-17-2022 15:23-0400 Systolic Blood Pressure Non-Invasive 134 1 STERLING LYNCH DO [facility] 08-26-2022 13:12-0400 Body height 180.3 cm Stas Mora MD Work Phone: [facility] 08-26-2022 13:12-0400 Body weight 78.74 kg tSas Mora MD Work Phone: [facility] 08-26-2022 13:12-0400 Diastolic blood pressure 74 mm[Hg] Stas Mora MD Work Phone: [facility] 08-26-2022 13:12-0400 Heart rate 66 /min Stas Mora MD Work Phone: [facility] 08-26-2022 13:12-0400 Respiratory rate 16 /min Stas Mora MD Work Phone: [facility] 08-26-2022 13:12-0400 Systolic blood pressure 122 mm[Hg] Stas Mora MD Work Phone: [facility] 12-26-2021 11:22-0400 Body weight 78.56 kg Stas Mora MD Work Phone: [facility] 12-26-2021 11:22-0400 Diastolic blood pressure 80 mm[Hg] Stas Mora MD Work Phone: [facility] 12-26-2021 11:22-0400 Heart rate 58 /min Stas Mora MD Work Phone: [facility] 12-26-2021 11:22-0400 Respiratory rate 16 /min Stas Mora MD Work Phone: [facility] 12-26-2021 11:22-0400 Systolic blood pressure 142 mm[Hg] Stas Mora MD Work Phone: [facility] 12-22-2021 11:13-0400 Body temperature 97.6 [degF] Dr. Stas Mora Work Phone: [facility] Work Phone: 12-22-2021 11:13-0400 Diastolic blood pressure 58 mm[Hg] Dr. Stas Mora Work Phone: [facility] Work Phone: 12-22-2021 11:13-0400 Heart rate 63 /min Dr. Stas Mora Work Phone: [facility] Work Phone: 12-22-2021 11:13-0400 Respiratory rate 16 /min Dr. Stas Mora Work Phone: [facility] Work Phone: 12-22-2021 11:13-0400 SaO2% (BldA) [Mass fraction] 96 % Dr. Stas Mora Work Phone: [facility] Work Phone: 12-22-2021 11:13-0400 Systolic blood pressure 142 mm[Hg] Dr. Stas Mora Work Phone: [facility] Work Phone: 12-21-2021 20:06-0400 Body height 182.[address] Stas Mora Work Phone: [facility] Work Phone: 12-21-2021 20:06-0400 Body mass index (BMI) [Ratio] 22.6 kg/m2 Dr. Stas Mora Work Phone: [facility] Work Phone: 12-21-2021 20:06-0400 Body weight 75.[address] Stas Mora Work Phone: [facility] Work Phone: 12-21-2021 19:15-0400 Diastolic blood pressure 81 mm[Hg] [facility] Work Phone: 12-21-2021 19:15-0400 Heart rate 70 /min [facility] Work Phone: 12-21-2021 19:15-0400 Respiratory rate 18 /min [facility] Work Phone: 12-21-2021 19:15-0400 SaO2% (BldA) [Mass fraction] 96 % [facility] Work Phone: 12-21-2021 19:15-0400 Systolic blood pressure 171 mm[Hg] [facility] Work Phone: 12-21-2021 19:02-0400 Body temperature 97.6 [degF] [facility] Work Phone: 12-21-2021 18:17-0400 Body height 182.88 cm [facility] Work Phone: 12-21-2021 18:17-0400 Body mass index (BMI) [Ratio] 24.2 kg/m2 [facility] Work Phone: 12-21-2021 18:17-0400 Body weight 80.9 kg [facility] Work Phone: 09-05-2021 11:21-0400 Body height 182.9 cm Stas Mora MD Work Phone: [facility] 09-05-2021 11:21-0400 Body weight 80.2 kg Stas Mora MD Work Phone: [facility] 09-05-2021 11:21-0400 Diastolic blood pressure 70 mm[Hg] Stas Mora MD Work Phone: [facility] 09-05-2021 11:21-0400 Heart rate 62 /min Stas Mora MD Work Phone: [facility] 09-05-2021 11:21-0400 Respiratory rate 16 /min Stas Mora MD Work Phone: [facility] 09-05-2021 11:21-0400 Systolic blood pressure 136 mm[Hg] Stas Mora MD Work Phone: [facility] 07-08-2021 10:41-0400 Body weight 83.55 kg Stas Mora MD Work Phone: [facility] 07-08-2021 10:41-0400 Diastolic blood pressure 78 mm[Hg] Stas Mora MD Work Phone: [facility] 07-08-2021 10:41-0400 Heart rate 60 /min Stas Mora MD Work Phone: [facility] 07-08-2021 10:41-0400 Respiratory rate 16 /min Stas Mora MD Work Phone: [facility] 07-08-2021 10:41-0400 Systolic blood pressure 120 mm[Hg] Stas Mora MD Work Phone: [facility] Encounters Encounter Date Encounter Type Care Provider Facility Start: 01-25-2025 ambulatory Shayy GAMA Fa cility:[facility] Start: 01-23-2025 ambulatory Stas Mora Facilit y:[facility] Start: 01-10-2025 ambulatory Stas Mora Facilit y:[facility] Start: 12-28-2024 End: 12-28-2024 ambulatory Halina Carmona 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 Stas Mora MD Work Phone: [facility] Start: 11-29-2024 End: 11-29-[address] Shayy Curtis MD -[facility] Work Phone: Start: 11-25-2024 Registered Referred [facility] Start: 11-24-2024 End: 11-25-[address] Stas Mora MD Work Phone: [facility] Start: 11-24-2024 End: 11-24-2024 Patient encounter procedure Halina HO -[facility] Work Phone: Start: 11-23-2024 ambulatory Efewongbe Oleghe OLS Fa cility:[facility] Start: 11-23-2024 Registered Referred Shayy [facility] Start: 11-02-2024 ambulatory Efewongirlanda Salazarghe OLS Fa cility:[facility] Start: 11-02-2024 Registered Referred Shayy [facility] Start: 10-31-2024 ambulatory Efewongbe Martinghe OLS Fa cility:[facility] Start: 10-31-2024 Registered Referred Shayy MaloneyElmer [facility] Start: 10-25-2024 End: 10-25-[address] Stas Mora MD Work Phone: [facility] Start: 10-25-2024 End: 10-25-[address] [facility] Start: 10-20-2024 End: 10-20-[address] Stas Mora MD Work Phone: [facility] Start: 10-20-2024 End: 10-20-2024 [facility] Start: 10-06-2024 ambulatory Efewongbe Gabee OLS Fa cility:[facility] Start: 10-06-2024 Registered Referred Shayy [facility] Start: 10-05-2024 ambulatory Shayy GAMA Fa cility:[facility] Start: 10-05-2024 Registered Referred Shayy [facility] Start: 09-30-2024 End: 09-30-[address] 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 Stas Mora MD Work Phone: [facility] Start: 09-28-2024 End: 09-28-2024 Departed Referred Shayy Cardozo Start: 09-28-2024 Registered Referred Shayy Cardozo Start: 09-28-2024 End: 09-28-2024 ambulatory Shayy GAMA Facility:[facility] Start: 09-26-2024 End: 09-26-[address] Stas Mora MD Work Phone: -ODELL Cardozo Start: 09-26-2024 End: 09-26-2024 Departed Referred Shayy Cardozo Start: 09-26-2024 Registered Referred Shayy Cardozo Start: 09-26-2024 End: 09-26-2024 ambulatory Efbaldomero GAMA Facility:[facility] Start: 09-23-2024 ambulatory Efbaldomero GAMA Fa cility:[facility] Start: 09-23-2024 Registered Referred Shayy Cardozo Start: 09-21-2024 End: 09-22-2024 Telephone encounter Stas Mora MD Work Phone: [facility] Start: 09-21-2024 ambulatory Efbaldomero [place] OLS Fa cility:[facility] Start: 09-21-2024 Registered Referred Shayy Cardozo Start: 09-20-2024 End: 09-20-[address] Stas Mora MD Work Phone: [facility] Start: 09-20-2024 End: 09-20-[address] Shayy Curtis MD -[facility] Work Phone: Start: 09-19-2024 ambulatory Efewongbe Gabee OLS Fa cility:[facility] Start: 09-19-2024 Registered Referred Shayy Cardozo Start: 09-15-2024 ambulatory Efewongbe Martintomye OLS Fa cility:[facility] Start: 09-15-2024 Registered Referred Shayy Cardozo Start: 09-14-2024 ambulatory Efewongbe Gabee OLS Fa cility:[facility] Start: 09-14-2024 Registered Referred Shayy Cardozo Start: 09-12-2024 ambulatory Efewongirlanda [place] OLS Fa cility:[facility] Start: 09-12-2024 Registered Referred Shayy Cardozo Start: 09-08-2024 End: 09-08-2024 Patient encounter procedure Halina HO -[facility] Work Phone: Start: 09-08-2024 End: 09-08-[address] Stas Mora MD Work Phone: [facility] Start: 09-08-2024 Registered Referred Shayy Cardozo Start: 09-07-2024 End: 09-07-2024 [facility] Work Phone: Start: 09-07-2024 End: 09-07-[address] Stas Mora MD Work Phone: -[facility] Start: 09-07-2024 Registered Referred Shayy Curtis MD -[facility] Start: 09-06-2024 Non-patient / Non-visit Dr. Navid Dominguez MD -[facility] Work Phone: Start: 09-05-2024 Non-patient / Non-visit Dr. Navid Dominguez MD [facility] Work Phone: Start: 09-04-2024 Non-patient / Non-visit Dr. Jia Wells MD [facility] Work Phone: Start: 09-03-2024 Non-patient / [facility] Work Phone: Start: 09-02-2024 Non-patient / Non-visit Dr. Jia Wells MD [facility] Work Phone: Start: 09-02-2024 ambulatory Kathy Jimenez Facility :[facility] Start: 09-02-2024 End: 09-06-2024 Evaluation and management of inpatient Dr. Navid Dominguez MD -[facility] Work Phone: Start: 09-01-2024 End: 09-01-2024 Telephone encounter [facility] Work Phone: [facility] Comment on above: Medication Problem ( Cost) Start: 09-01-2024 ambulatory Kathy Jimenez Facility :[facility] Start: 09-01-2024 Evaluation and management of inpatient Dr. Kathy Wells MD -[facility] Work Phone: Start: 09-01-2024 Non-patient / Non-visit Dr. Jia [facility] Work Phone: Start: 09-01-[address] Stas Mora MD Work Phone: [facility] Work Phone: Start: 08-31-2024 End: 08-31-2024 Telephone encounter Coretta Jalloh [facility] Ambulatory Telemanagement Comment on above: Anticoagulation Tele phone Fu (Home INR result ) Start: 08-31-2024 End: 08-31-2024 ambulatory STAS Trejo [facility] Facility:[facility] Start: 08-31-2024 End: 08-31-2024 Office outpatient visit 25 minutes Luciana Cisneros MD Work Phone: Geriatrics Comment on above: Moderate dementia wi thout behavioral disturbance, psychotic disturbance, mood disturbance, or anxiety, unspecified dementia type (HCC) (Primary Dx); Hallucinations; Screening for depression; Encounter for screening examination for other mental health and behavioral disorders Start: 08-31-2024 End: 08-31-2024 ambulatory LUCIANA CISNEROS Facility:[facility] Start: 08-03-2024 End: 08-03-2024 Telephone encounter Coretta Jalloh [facility] Ambulatory Telemanagement Comment on above: Anticoagulation Tele phone Fu (Lab INR result) Start: 08-03-2024 End: 08-03-2024 ambulatory STAS Trejo [facility] Facility:[facility] Start: 07-28-2024 End: 07-28-2024 Office outpatient visit 15 minutes Stas Mora MD Work Phone: [facility] Comment on above: Bursitis of right el bow, unspecified bursa (Primary Dx) Start: 07-28-2024 End: 07-28-2024 [facility] Start: 07-06-2024 End: 07-06-2024 Telephone encounter Coretta Jalloh [facility] Ambulatory Telemanagement Comment on above: Anticoagulation Tele phone Fu (Lab INR result ) Start: 07-06-2024 End: 07-06-2024 ambulatory STAS Maya [facility] Facility:[facility] Start: 06-29-2024 End: 06-29-2024 Telephone encounter Coretta Jalloh [facility] Ambulatory Telemanagement Comment on above: Anticoagulation Tele phone Fu (Lab INR result ) Start: 06-29-2024 End: 06-29-2024 ambulatory STAS MORA Facility:[facility] Start: 06-01-2024 End: 06-01-2024 Office consultation new/estab patient 80 min Luciana Cisneros MD Work Phone: Geriatrics Comment on above: Mixed dementia (HCC) (Primary Dx); Vascular parkinsonism (HCC) Start: 06-01-2024 End: 06-01-2024 ambulatory LUCIANA CISNEROS Facility:[facility] Start: 06-01-2024 End: 08-01-2024 Follow-up encounter Luciana Cisneros MD Work Phone: Geriatrics Start: 05-26-2024 End: 05-26-2024 Telephone encounter Luciana Cisneros MD Work Phone: Geriatrics Comment on above: Appointment (Resched ule for geriatric f/u) Start: 05-26-2024 End: 05-26-2024 [facility] Start: 05-26-2024 End: 05-26-2024 Patient encounter procedure Stas Mora MD Work Phone: [facility] [place] Comment on above: Essential hypertensi on, benign (Primary Dx); Hyperlipidemia, unspecified hyperlipidemia type; Atherosclerosis of coronary artery without angina pectoris, unspecified vessel or lesion type, unspecified whether [place] or transplanted heart; Paroxysmal atrial fibrillation (HCC); Edema of both lower legs; History of stroke with residual effects; Dementia, unspecified dementia severity, unspecified dementia type, unspecified whether behavioral, psychotic, or mood disturbance or anxiety (HCC) Start: 05-25-2024 End: 05-25-2024 Telephone encounter Paige Hickman [facility] Ambulatory Telemanagement Comment on above: Anticoagulation Tele phone Fu (Lab INR Result ) Start: 05-25-2024 End: 05-25-2024 ambulatory STAS MORA Facility:[facility] Start: 05-23-2024 ambulatory LUCIANA CISNEROS Facility :[id number] Start: 05-23-2024 End: 05-23-2024 Subsequent hospital visit by physician Mri [facility] Work Phone: [facility] Comment on above: Cognitive impairment , mild, 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] Start: 04-28-2024 End: 04-29-2024 Telephone encounter Stas Mora MD Work Phone: Internal Medicine [place] Comment on above: Results Start: 04-27-2024 End: 04-27-2024 Telephone encounter Coretta Jalloh [facility] Ambulatory Telemanagement Comment on above: Anticoagulation Tele phone Fu (Lab INR result ) Start: 04-27-2024 End: 04-27-2024 ambulatory [facility] Facility:[facility] Start: 04-27-2024 End: 04-27-2024 Assmt & care planning pt w/cognitive impairment Luciana Cisneros MD Work Phone: Geriatrics Comment on above: Dementia, unspecifie d dementia severity, unspecified dementia type, unspecified whether behavioral, psychotic, or mood disturbance or anxiety (HCC) (Primary Dx); Cognitive impairment; Cognitive impairment, mild, so stated; Shuffling gait; Ambulatory dysfunction; Balance disorder Start: 04-27-2024 End: 04-27-2024 [facility] Facility:[facility] Start: 04-25-2024 End: 04-25-2024 Telephone encounter Stas Mora MD Work Phone: [facility] [place] Comment on above: memory issues Start: 04-13-2024 End: 04-13-2024 [facility] Ambulatory Telemanagement Comment on above: Anticoagulation Tele phone Fu (Home INR result ) Start: 04-13-2024 End: 04-13-2024 ambulatory STAS MORA Facility:[facility] Start: 03-30-2024 End: 03-30-2024 Telephone encounter Coretta Jalloh [facility] Ambulatory Telemanagement Comment on above: Anticoagulation Tele phone Fu (Lab INR result ) Start: 03-30-2024 End: 03-30-2024 ambulatory STAS MORA Facility:[facility] Start: 03-17-2024 End: 03-17-2024 Telephone encounter Josy Gandhi [facility] Comment on above: Anticoagulation Tele phone Fu (Lab INR result ) Start: 03-17-2024 End: 03-17-2024 ambulatory STAS MORA Facility:[facility] Start: 03-03-2024 End: 03-03-2024 Telephone encounter Elise Paredes [facility] Ambulatory Telemanagement Comment on above: Anticoagulation Tele phone Fu (Lab INR result) Start: 03-03-2024 End: 03-03-2024 ambulatory [facility] Facility:[facility] Start: 02-10-2024 End: 02-10-2024 [facility] Ambulatory Telemanagement Comment on above: Anticoagulation Tele phone Fu (Lab INR result ) Start: 02-10-2024 End: 02-10-2024 ambulatory [facility] Facility:[facility] Start: 01-20-2024 End: 01-20-2024 Telephone encounter [facility] Ambulatory Telemanagement Comment on above: Anticoagulation Tele phone Fu (Lab INR results ) Start: 01-04-2024 End: 01-04-2024 Telephone encounter Stas Mora MD Work Phone: [facility] Comment on above: Medication Request Start: 12-24-2023 End: 12-24-2023 Telephone encounter Elise Paredes [facility] Ambulatory Telemanagement Comment on above: Anticoagulation Tele phone Fu (Lab INR) Start: 12-10-2023 End: 12-10-2023 Telephone encounter Elise Paredes [facility] Ambulatory Telemanagement Comment on above: Anticoagulation Tele phone Fu (Lab INR) Start: 11-26-2023 End: 11-26-2023 Telephone encounter Elise Paredes 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 Ambulatory Telemanagement Comment on above: Anticoagulation Tele phone Fu (Home INR) Start: 11-16-2023 End: 11-16-2023 Refill Stas Mora MD Work Phone: [facility] [place] Comment on above: Refill Request Start: 10-14-2023 Telephone encounter Coretta Jalloh [facility] Ambulatory Telemanagement Comment on above: Anticoagulation Tele phone Fu (Home INR results ) Start: 09-16-2023 Telephone encounter Colleen Sommer [facility] Ambulatory Telemanagement Comment on above: Anticoagulation Tele phone Fu Start: 09-15-2023 End: 09-15-2023 Patient encounter procedure Stas Mora MD Work Phone: [facility] Comment on above: Edema of both lower legs (Primary Dx) Start: 09-14-2023 End: 09-14-2023 ambulatory Nurse Intm/Famp Triage [facility] Work Phone: Nurse Phone Triage Comment [...] encounter procedure Stas Mora MD Work Phone: [facility] Comment on above: Moderate [...] results ) Start: 07-16-2023 Refill Elvis RASHID RN.[employer] Work Phone: [facility] [place] Comment on above: Refill [...] Jerzy Easton MD Work Phone: [facility] [place] Comment on above: Anticoagulation Start: 06-11-2023 Telephone encounter Stas miranda MD Work Phone: [facility] [place] Comment on above: Anticoagulation Start: 06-08-2023 Telephone encounter Jenna Armenta gaof INSTRUMENT REPAIR SPECIALIST.[employer] MAK[employer] Work Phone: [facility] [place] Comment on above: Erroneous encounter- disregard Anticoagulation Start: 06-05-2023 Telephone encounter Jenna Armenta gaof INSTRUMENT REPAIR SPECIALIST.[employer]EN[employer] MAKER Work Phone: [facility] [place] Comment on above: Results (Labs, Criti cleopatra ) Start: 06-04-2023 ambulatory Hortencia Winston RN NURSE O N CALL Comment on above: Results, Lab High Protime and INR Start: 06-04-2023 E-mail encounter fro m caregiver Jasmin Bell MD Work Phone: [facility] [place] Start: 06-04-2023 Telephone encounter Jenna Armenta nhof INSTRUMENT REPAIR SPECIALIST.[employer]ITCHEN[employer] MAKER Work Phone: [facility] [place] Comment on above: Results; Orders (Lab s ) Start: 06-03-2023 Telephone encounter Coretta Jalloh [facility] Ambulatory Telemanagement Comment on above: Anticoagulation Tele phone Fu (Lab INR results ) Start: 06-01-2023 End: 06-01-2023 Patient encounter procedure Stas Mora MD Work Phone: [facility] [place] Comment on above: Essential hypertensi on, benign (Primary Dx); Paroxysmal atrial fibrillation (HCC); Atherosclerosis of coronary artery without angina pectoris, unspecified vessel or lesion type, unspecified whether [place] or transplanted heart; Hyperlipidemia, unspecified hyperlipidemia type; [...] results) Start: 05-13-2023 Telephone encounter Senia Phillips [facility] P harmacy Ambulatory Telemanagement Comment [...] ) Start: 02-20-2023 Telephone encounter Elise Paredes [facility] Comment on above: Anticoagulation Tele phone Fu (Lab INR) Start: 02-17-2023 Telephone encounter Stas miranda MD Work Phone: [facility] [place] Comment on above: Results Start: 02-17-2023 End: 02-17-2023 Subsequent hospital visit by physician Mri Radio [facility] (I-Stat/1.5t) Work Phone: Radiology Comment on above: Cerebral infarction, unspecified mechanism (HCC) [I63.9] Start: 02-16-2023 End: 02-16-2023 Patient encounter procedure Stas Mora MD Work Phone: [facility] Comment on above: Cerebral infarction, unspecified mechanism (HCC) (Primary Dx); Generalized weakness; Speech disturbance, unspecified type; Hyperlipidemia, unspecified hyperlipidemia type; Essential hypertension, benign; Paroxysmal atrial fibrillation (HCC) Start: 02-13-2023 Telephone encounter Elise Paredes [facility] Ambulatory Telemanagement Comment on above: Anticoagulation Tele phone Fu (Lab INR) Start: 02-10-2023 End: 02-10-2023 Emergency department patient visit [facility] Work Phone: Start: 02-06-2023 Telephone encounter Senia Phillips RPh P harmacy Ambulatory Telemanagement Comment on above: Anticoagulation Tele phone Fu (INR Lab Result) Start: 01-19-2023 Telephone encounter [facility] Ambulatory Telemanagement Comment on above: Anticoagulation Tele phone Fu Start: 01-16-2023 Orders Only Stas newman MD Work Phone: [facility] Comment on above: 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 Comment on above: Anticoagulation Tele phone Fu (Lab INR result) Start: 09-12-2022 Telephone encounter Jeimy Duong [facility] Comment on above: Anticoagulation Tele phone Fu (Lab INR result) Start: 08-26-2022 End: 08-26-2022 Patient encounter procedure Stas Mora MD Work Phone: [facility] Comment on above: Encounter [...] Result) Start: 07-04-2022 Telephone encounter Lety Gandara [facility] Comment on above: Anticoagulation Tele phone Fu (Lab INR result ) Start: 06-23-2022 Refill Elvis RASHID RN.[facility] Work Phone: [facility] Comment on above: Refill Request Start: 06-20-2022 Telephone encounter Senia Cross RPh P harmacy Ambulatory Telemanagement Comment on above: Anticoagulation Tele phone Fu (INR Lab Result) Start: 06-06-2022 Telephone encounter Senia Cross RPh P harmacy Ambulatory Telemanagement Comment on above: Anticoagulation Tele phone Fu (INR Lab Result) Start: 05-30-2022 Telephone encounter Stas miranda MD Work Phone: [facility] [place] Comment on above: Opened In Error Start: 05-22-2022 Telephone encounter Jenna Armenta nhof INSTRUMENT REPAIR SPECIALISTSamuelKITCHENWHERE MAKER Work Phone: [facility] [place] Comment on above: Results (X-ray hip) Start: 05-21-2022 End: 05-21-2022 Subsequent hospital visit by physician Xr [facility] [place] Work Phone: Radiology Comment on above: Left hip pain [M25.5 52] Start: 05-21-2022 ambulatory Fani Grace RN NURSE O N CALL Comment on above: Fall Fall; Hip Pain Start: 05-19-2022 Telephone encounter Stas miranda MD Work Phone: [facility] [place] Comment on above: Anticoagulation Start: [...] Result) Start: 04-04-2022 Telephone encounter Elise Paredes [facility] Comment on above: Anticoagulation Tele phone Fu (Lab INR) Start: 03-31-2022 Telephone encounter Stas miranda MD Work Phone: [facility] [place] Comment on above: Release Of Medical R ecords ([place] PCP) Start: 03-21-2022 Telephone encounter Carmelina Cruz [facility] Comment on above: Anticoagulation Tele phone Fu Start: 02-21-2022 Telephone encounter Kristian Ferguson MD Work Phone: [facility] [place] Comment on above: Anticoagulation Start: 02-10-2022 Telephone encounter Stas miranda MD Work Phone: [facility] [place] Comment on above: Opened In Error Start: 01-27-2022 Telephone encounter Paige [facility] Ambulatory Telemanagement Comment on above: Anticoagulation Tele phone Fu (Lab INR Result) Start: 01-20-2022 Telephone encounter Paige [facility] Ambulatory Telemanagement Comment on above: Anticoagulation Tele phone Fu (Lab INR Result) Start: 01-17-2022 Telephone encounter Stas miranda MD Work Phone: [facility] Comment on above: Anticoagulation; Cri tical Results (INR) Start: 01-13-2022 Refill Stas newman MD Work Phone: [facility] Comment on above: Refill Request; Refi ll Request Start: 01-03-2022 Telephone encounter [facility]ia Alan [facility] Comment on above: Anticoagulation Tele phone Fu (INR Home Test Result) Start: 01-02-2022 Telephone encounter Stas miranda MD Work Phone: [facility] Comment on above: Results Start: 12-26-2021 End: 12-26-2021 Patient encounter procedure Stas Mora MD Work Phone: [facility] Comment on above: Hospital discharge f ollow-up (Primary Dx); Encounter for immunization; TIA (transient ischemic attack); Thyroid nodule; Essential hypertension, benign; Paroxysmal atrial fibrillation (HCC); Atherosclerosis of coronary artery without angina pectoris, unspecified vessel or lesion type, unspecified whether [place] or transplanted heart Start: 12-22-2021 Non-patient / Non-visit Dr. Maria E Mora Work Phone: [facility] Start: 12-21-2021 Non-patient / Non-visit Dr. Maria E Mora Work Phone: [facility] Start: 12-21-2021 End: 12-22-2021 Evaluation and management of inpatient [facility] Start: 12-21-2021 End: 12-22-[address] Stas Mora Work Phone: [facility] Work Phone: Start: 12-20-2021 Telephone encounter Stas miranda MD Work Phone: [facility] [place] Comment on above: Opened In Error Anticoagulation Tele phone Fu (INR Lab Result) Start: 12-06-2021 Telephone encounter Senia Cross h P [facility]acy Ambulatory Telemanagement Comment on above: Anticoagulation Tele phone Fu (INR Lab Result) Start: 11-22-2021 Telephone encounter Janice Sal [facility] Ambulatory Telemanagement Comment on above: Anticoagulation Tele phone Fu (INR) Start: 11-08-2021 Telephone encounter Stas miranda MD Work Phone: [facility] [place] Comment on above: Opened In Error Anticoagulation Tele phone Fu (INR Lab Result) Start: 10-25-2021 Telephone encounter Janice Sal [facility] Ambulatory Telemanagement Comment on above: Anticoagulation Tele phone Fu (lab INR ) Start: 09-27-2021 Telephone encounter Yomi Wills [facility] Ambulatory Telemanagement Comment on above: Anticoagulation Tele phone Fu (Lab INR Result) Start: 09-13-2021 Orders Only Stas newman MD Work Phone: [facility] [place] Comment on above: alf current us e [...] Start: 08-30-2021 Telephone encounter Jenna Armenta nhof INSTRUMENT REPAIR SPECIALIST.[employer]ITCHEN[employer] MAKER Work Phone: [facility] [place] Comment on above: Orders (INR ) Anticoagulation Tele phone Fu (INR Lab Result) Start: 08-16-2021 Orders Only Stas newman MD Work Phone: [facility] [place] Comment on above: Anticoagulation Start: 08-02-2021 Telephone encounter Senia Alan [facility] harmacy Ambulatory Telemanagement Comment on above: Anticoagulation Tele phone Fu (INR Lab Result) Start: 07-16-2021 Telephone encounter [facility] MD [facility] Comment on above: Results Start: 07-13-2021 Refill Elvis RASHID RN.[employer]ITCHEN[employer] MAKER Work Phone: [facility] Comment on above: Refill Request Start: 07-08-2021 End: 07-08-2021 Patient encounter procedure Stas Mora MD Work Phone: [facility] Comment on above: Essential hypertensi on, benign (Primary Dx); Atherosclerosis of coronary artery without angina pectoris, unspecified vessel or lesion type, unspecified whether [place] or transplanted heart; Paroxysmal atrial fibrillation (HCC); Primary osteoarthritis of both knees Start: 07-03-2021 Telephone encounter Stas miranda MD Work Phone: [facility] Comment on above: Anticoagulation Tele phone Fu (Lab INR result) Start: 06-12-2021 Telephone encounter Stas miranda MD Work Phone: [facility] Comment on above: Anticoagulation (Lab INR result) Start: 03-12-2020 End: 03-12-2020 Subsequent hospital visit by physician Xr [facility] [place] Work Phone: Radiology Comment on above: Acute right-sided lo w back pain, unspecified whether sciatica present [M54.5] Start: 02-02-2018 Ambulatory DARRELL OLIVEIRA Facility :[facility] Start: 06-02-2017 End: 06-02-2017 [facility] DARRELL Radha [facility] Procedures Date Procedure Procedure Detail Performing [...] Adult depression scr eening assessment Coretta Jalloh [facility] Start: 02-17-2023 Mri brain brain stem w/o contrast material Stas Moar MD Work Phone: Start: 02-10-2023 Plain chest X-ray Start: 02-10-2023 SARS-CoV-2 & FLU Ant igen (Rapid) Start: 05-21-2022 Radex hip unilateral with pelvis 2-3 views Jenna Fitzpatrick INSTRUMENT REPAIR SPECIALIST.KITCHENWHERE MAKER Work Phone: Start: 05-19-2022 PROTHROMBIN TIME/PT Ccf [...] Detail Author Start: 02-27-2031 Urine microalbumin profile [facility] Start: 05-26-2027 Diabetes Screening Diabetes Screenwa g [facility] Start: 06-02-2026 Diabetes Screening Diabetes Screenwa g [facility] Start: 08-15-2025 DIABETES SCREEN DIABETES SCREEN [facility] Start: 08-15-2025 Diabetes Screening Diabetes Screenwa g [facility] Start: 05-25-2025 Hepatitis B surface antibody level LDL Cholesterol [facility] Start: 03-30-2025 End: 03-30-2025 Patient encounter procedure 03/30/2025 11:00 AM EST Office Visit Geriatrics [address] [facility], [place] [id number] Luciana Cisneros MD [address] [place], [place] [phone] follow up 6 months Geriatrics Comment on above: follow up 6 months Start: 02-21-2025 DIABETES SCREEN DIABETES SCREEN [facility] Start: 01-10-2025 Registered Referred Registered Refer [facility] [place] Start: 12-06-2024 DIABETES SCREEN DIABETES SCREEN [facility] Start: 12-05-2024 End: 12-05-2024 Patient encounter procedure 12/05/2024 12:40 PM EDT Office Visit Family Medicine [place] [address] [place] [address] Stas Mora MD [address] [place] [address] reschedule from 12/01 [facility] Comment on above: reschedule from 12/01 Start: 12-01-2024 End: 12-01-2024 Patient encounter procedure 12/01/2024 9:40 AM EDT Office Visit Family Medicine [place] [address] [facility], [place] [id number] Stas Mora MD [address] [place], [place] [phone] 6 mo f/u [facility] [place] Comment on above: 6 mo f/u Start: 11-26-2024 End: 02-25-2025 CBC W Auto Differential panel - Blood COMPLETE BLOOD COUNT AND DIFFERENTIAL Lab Routine Essential hypertension, benign Expected: 11/26/2024 (Approximate), Expires: 02/25/2025 [facility] Comment on above: Expected: 11/26/2024 (Approximate), Expires: 02/25/2025 Start: 11-26-2024 End: 02-25-2025 Comprehensive metabolic 2000 panel - Serum or Plasma COMPREHENSIVE METABOLIC PANEL Lab Routine Essential hypertension, benign Hyperlipidemia, unspecified hyperlipidemia type Expected: 11/26/2024 (Approximate), Expires: 02/25/2025 [facility] Work Phone: Comment on above: Expected: 11/26/2024 (Approximate), Expires: 02/25/2025 Start: 11-26-2024 End: 02-25-2025 Lipid 1996 panel - Serum or Plasma LIPID PANEL BASIC Lab Routine Essential hypertension, benign Hyperlipidemia, unspecified hyperlipidemia type Expected: 11/26/2024 (Approximate), Expires: 02/25/2025 [facility] Comment on above: Expected: 11/26/2024 (Approximate), Expires: 02/25/2025 Start: 11-25-2024 RSV Vaccine (1 - 1-d ose 60+ series) RSV Vaccine (1 - 1-dose 60+ series) [facility] Comment on above: Postponed from 08/12 (Declined at this time) Start: 11-25-2024 RSV Vaccine (1 - 1-d ose 75+ series) RSV Vaccine (1 - 1-dose 75+ series) [facility] Comment on above: Postponed from 08/12 (Declined at this time) Start: 11-23-2024 [facility] Start: 11-21-2024 Influenza vaccination Influenza Vacc ine (#1) [facility] Start: 09-06-2024 Patient discharge [facility] Start: 09-02-2024 Admission procedure [facility] Start: 09-01-2024 End: 09-02-2024 [facility] Start: 09-01-2024 Blood culture Blood Culture [facility] Start: 09-01-2024 Application of intermittent pneumatic compression device [facility] Start: 09-01-2024 Fall prevention [facility] Start: 09-01-2024 Oxygen therapy [facility] Start: 09-01-2024 Provision of activit y privileges [facility] Start: 09-01-2024 Assessment of risk o f venous thromboembolism [facility] Start: 09-01-2024 Insertion of cathete r into peripheral vein [facility] Start: 09-01-2024 Providing care accor ding to standard [facility] Start: 09-01-2024 Referral to occupati onal therapist [facility] Start: 09-01-2024 Referral to service [facility] Start: 09-01-2024 [facility] Start: 09-01-2024 Following clinical pathway protocol [facility] Start: 09-01-2024 Admission procedure [facility] Start: 09-01-2024 Hospital admission, emergency, from emergency room, medical nature [facility] Start: 08-31-2024 End: 08-31-2024 Patient encounter procedure 08/31/2024 11:00 AM EDT Office Visit Geriatrics [address] [place] [address] Luciana Cisneros MD [address] [place] [address] 3 month f/u Geriatrics Comment on above: 3 month f/u Start: 2024 Anxiety Screening Anxiety Screening [facility] Start: 2024 Depression Screening Depression Scre ening [facility] Start: 07-08-2024 DIABETES SCREEN DIABETES SCREEN [facility] Start: 06-02-2024 Hepatitis B surface antibody level LDL Cholesterol [facility] Start: 06-01-2024 End: 06-01-2024 Patient encounter procedure 06/01/2024 3:00 PM EDT Office Visit Geriatrics [address] [place] [address] Luciana Cisneros MD [address] [place] [address] Follow up visit for MRI [facility]iatrics Comment on above: Follow up visit for MRI Start: 06-01-2024 Covid-19 Vaccine () Covid-19 Vaccine () [facility] Start: 05-30-2024 End: 05-30-2024 Patient encounter procedure 05/30/2024 11:20 AM EDT Office Visit Internal Medicine [place] [address] [place] [address] Luciana Cisneros MD [address] [place] [address] Follow up visit for MRI [facility] [place] Comment on above: Follow up visit for MRI Start: 05-26-2024 End: 05-26-2024 Patient encounter procedure 05/26/2024 9:20 AM EST Office Visit Family [facility] [address] [place], [place] [phone] Stas Mora MD [address] [place] [address] 6 mo f/u Family [facility] Comment on above: 6 mo f/u Start: 05-25-2024 End: 08-24-2024 CBC W Auto Differential panel - Blood COMPLETE BLOOD COUNT AND DIFFERENTIAL Lab Routine Abnormal CBC Expected: 05/25/2024 (Approximate), Expires: 08/24/2024 [facility] Comment on above: Expected: 05/25/2024 (Approximate), Expires: 08/24/2024 Start: 05-25-2024 End: 08-24-2024 Comprehensive metabolic 2000 panel - Serum or Plasma COMPREHENSIVE METABOLIC PANEL Lab Routine Essential hypertension, benign Hyperlipidemia, unspecified hyperlipidemia type Expected: 05/25/2024 (Approximate), Expires: 08/24/2024 [facility] Work Phone: Comment on above: Expected: 05/25/2024 (Approximate), Expires: 08/24/2024 Start: 05-25-2024 End: 08-24-2024 Lipid 1996 panel - Serum or Plasma LIPID PANEL BASIC Lab Routine Essential hypertension, benign Hyperlipidemia, unspecified hyperlipidemia type Expected: 05/25/2024 (Approximate), Expires: 08/24/2024 [facility] Comment on above: Expected: 05/25/2024 (Approximate), Expires: 08/24/2024 Start: 05-25-2024 End: 05-25-2024 ambulatory 05/25/2024 8:30 AM EST Results Only [place] Draw Station [address] [facility] [address] [facility] Start: 05-23-2024 End: 05-23-2024 Patient encounter procedure 05/23/2024 2:30 PM EST Appointment [facility] [address] [place] [address] Cognitive impairment, mild, 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] [facility] Comment on above: Cognitive impairment , mild, 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] Start: 04-29-2024 End: 04-29-2024 Patient encounter procedure 04/29/2024 3:40 PM EST Office Visit Family Medicine [place] [address] [place] [address] Stas Mora MD [address] [place], [place] [phone] memory issues,See TE [facility] [place] Comment on above: memory issues,See TE Start: 04-27-2024 End: 04-27-2024 Patient encounter procedure 04/27/2024 9:30 AM EST Office Visit Geriatrics [address] [place] [address] Luciana Cisneros MD [address] [place] [address] Dementia, unspecified dementia severity, unspecified dementia type, unspecified whether behavioral, psychotic, or mood disturbance or anxiety (HCC) [F03.90] Geriatrics Comment on above: Dementia, unspecifie d dementia severity, unspecified dementia type, unspecified whether behavioral, psychotic, or mood disturbance or anxiety (HCC) [F03.90] Start: 03-23-2024 Advance Directive Discussion Advance Directive Discussion [facility] Start: 03-23-2024 Medicare Advantage A nnual Wellness Visit Medicare Advantage Annual Wellness Visit [facility] Start: 03-13-2024 DIABETES SCREEN DIABETES SCREEN [facility] Start: 11-26-2023 End: 11-26-2023 Patient encounter procedure Family [place] Comment on above: 6 month follow up 6 month follow up, jessica bashir, on aricept x 3 months Start: 11-22-2023 Covid-19 Vaccine () Covid-19 Vaccine () [facility] Start: 11-22-2023 Influenza vaccination Influenza Vacc ine (#1) [facility] Start: 09-15-2023 End: 09-15-2023 Patient encounter procedure 09/15/2023 8:40 AM EDT Office Visit [facility] [place] [address] [place] [address] Stas Mora MD [address] [place], [place] [phone] leg swelling- both legs--See triage 09/14/2023. Family [place] Comment on above: leg swelling- both l egs--See triage 09/14/2023. Start: 08-16-2023 Hepatitis B surface antibody level LDL CHOLESTEROL [facility] Start: 08-14-2023 End: 08-14-2023 Patient encounter procedure 08/14/2023 10:00 AM EDT Office Visit [facility] [place] [address] [place] [id number] Stas Mora MD [address] [place], [place] [phone] Memory Issues Family [place] Comment on above: Memory Issues Start: 06-04-2023 End: 09-03-2023 Ferritin [Mass/volume] in Serum or Plasma [facility] Work Phone: Comment on above: Expected: 06/04/2023 , Expires: 09/03/2023 Start: 06-04-2023 End: 09-03-2023 Iron and Iron binding capacity panel - Serum or Plasma [facility] Work Phone: Comment on above: Expected: 06/04/2023 , Expires: 09/03/2023 Start: 06-01-2023 End: 08-31-2023 CBC panel - Blood by Automated count CBC Lab Routine Paroxysmal atrial fibrillation (HCC) Essential hypertension, benign Expected: 06/01/2023 (Approximate), Expires: 08/31/2023 [facility] Work Phone: Comment on above: Expected: 06/01/2023 (Approximate), Expires: 08/31/2023 Start: 06-01-2023 End: 08-31-2023 Comprehensive metabolic 2000 panel - Serum or Plasma COMP METABOLIC PANEL Lab Routine Paroxysmal atrial fibrillation (HCC) Essential hypertension, benign Hyperlipidemia, unspecified hyperlipidemia type Expected: 06/01/2023 (Approximate), Expires: 08/31/2023 [facility] Work Phone: Comment on above: Expected: 06/01/2023 (Approximate), Expires: 08/31/2023 Start: 06-01-2023 End: 08-31-2023 Lipid 1996 panel - Serum or Plasma LIPID PANEL BASIC Lab Routine Paroxysmal atrial fibrillation (HCC) Essential hypertension, benign Hyperlipidemia, unspecified hyperlipidemia type Expected: 06/01/2023 (Approximate), Expires: 08/31/2023 [facility] Work Phone: Comment on above: Expected: 06/01/2023 (Approximate), Expires: 08/31/2023 Start: 05-13-2023 Covid-19 Vaccine () Covid-19 Vaccine () [facility] Start: 03-23-2023 Advance Directive Discussion Advance Directive Discussion [facility] Start: 03-23-2023 Behavioral Health Screening Behavioral Health Screening [facility] Start: 03-23-2023 Depression Assessment Depression Ass essment [facility] Start: 02-21-2023 Hepatitis B surface antibody level LDL CHOLESTEROL [facility] Start: 02-10-2023 [facility] Start: 12-06-2022 Hepatitis B surface antibody level LDL CHOLESTEROL [facility] Start: 11-21-2022 Covid-19 Vaccine () Covid-19 Vaccine () [facility] Start: 11-21-2022 Influenza vaccination [facility] Start: 09-05-2022 PNEUMOCOCCAL: 65+ (2 - PCV) PNEUMOCOCCAL: 65+ (2 - PCV) [facility] Comment on above: Postponed from 02/21 (Declined at this time) Start: 07-08-2022 Hepatitis B surface antibody level LDL CHOLESTEROL [facility] Start: 04-26-2022 COVID-19 VACCINE (6 - Pfizer series) COVID-19 VACCINE (6 - Pfizer series) [facility] Start: 03-23-2022 ADVANCE DIRECTIVE DISCUSSION ADVANCE DIRECTIVE DISCUSSION [facility] Start: 03-23-2022 DEPRESSION ASSESSMENT DEPRESSION ASS ESSMENT [facility] Start: 03-13-2022 Hepatitis B surface antibody level LDL CHOLESTEROL [facility] Start: 03-10-2022 End: 05-10-2022 CBC panel - Blood by Automated count CBC Lab Routine TIA (transient ischemic attack) Essential hypertension, benign Atherosclerosis of coronary artery without angina pectoris, unspecified vessel or lesion type, unspecified whether [place] or transplanted heart Expected: 03/10/2022 (Approximate), Expires: 05/10/2022 [facility] Work Phone: Comment on above: Expected: 03/10/2022 (Approximate), Expires: 05/10/2022 Start: 03-10-2022 End: 05-10-2022 Comprehensive metabolic 2000 panel - Serum or Plasma COMP METABOLIC PANEL Lab Routine TIA (transient ischemic attack) Essential hypertension, benign Atherosclerosis of coronary artery without angina pectoris, unspecified vessel or lesion type, unspecified whether [place] or transplanted heart Expected: 03/10/2022 (Approximate), Expires: 05/10/2022 [facility] Work Phone: Comment on above: Expected: 03/10/2022 (Approximate), Expires: 05/10/2022 Start: 03-10-2022 End: 05-10-2022 Lipid 1996 panel - Serum or Plasma LIPID PANEL BASIC Lab Routine TIA (transient ischemic attack) Essential hypertension, benign Atherosclerosis of coronary artery without angina pectoris, unspecified vessel or lesion type, unspecified whether [place] or transplanted heart Expected: 03/10/2022 (Approximate), Expires: 05/10/2022 [facility] Work Phone: Comment on above: Expected: 03/10/2022 (Approximate), Expires: 05/10/2022 Start: 01-03-2022 End: 03-05-2022 Comprehensive metabolic 2000 panel - Serum or Plasma COMP METABOLIC PANEL Lab Routine Atherosclerosis of coronary artery without angina pectoris, unspecified vessel or lesion type, unspecified whether [place] or transplanted heart Essential hypertension, benign Expected: 01/03/2022 (Approximate), Expires: 03/05/2022 [facility] Work Phone: Comment on above: Expected: 01/03/2022 (Approximate), Expires: 03/05/2022 Start: 01-03-2022 End: 03-05-2022 LIPID PANEL BASIC LIPID PANEL BASIC Lab Routine Atherosclerosis of coronary artery without angina pectoris, unspecified vessel or lesion type, unspecified whether [place] or transplanted heart Essential hypertension, benign Expected: 01/03/2022 (Approximate), Expires: 03/05/2022 [facility] Work Phone: Comment on above: Expected: 01/03/2022 (Approximate), Expires: 03/05/2022 Start: 12-24-2021 Prothrombin time [facility] Work Phone: Start: 12-23-2021 Prothrombin time [facility] Work Phone: Start: 12-22-2021 Patient discharge [facility] Work Phone: Start: 12-21-2021 Assessment of risk o f venous thromboembolism [facility] Work Phone: Start: 12-21-2021 Cardiac monitoring [facility] Work Phone: Start: 12-21-2021 Catheterization of vein [facility] Work Phone: Start: 12-21-2021 Continuous pulse oximetry [facility] Work Phone: Start: 12-21-2021 Elevation of head of bed [facility] Work Phone: Start: 12-21-2021 Exercises [facility] Work Phone: Start: 12-21-[address] anned interventions [facility] Work Phone: Start: 12-21-2021 Insertion of cathete r into peripheral vein [facility] Work Phone: Start: 12-21-2021 Measuring intake and output [facility] Work Phone: Start: 12-21-2021 Notification of physician [facility] Work Phone: Start: 12-21-2021 Oxygen therapy [facility] Work Phone: Start: 12-21-2021 Providing care accor ding to standard [facility] Work Phone: Start: 12-21-2021 Provision of activit y privileges [facility] Work Phone: Start: 12-21-2021 Referral to occupati onal therapist [facility] Work Phone: Start: 12-21-2021 Referral to service [facility] Work Phone: Start: 12-21-2021 Tobacco use cessatio n education [facility] Work Phone: Start: 12-21-2021 US scan of thyroid Thyroid [facility] Work Phone: Start: 12-21-2021 [facility] Work Phone: Start: 12-21-2021 End: 12-21-2021 Following clinical pathway protocol [facility] Work Phone: Start: 12-21-2021 Verification routine [facility] Work Phone: Start: 12-21-2021 Admission procedure [facility] Work Phone: Start: 12-21-2021 CT of head without contrast STROKE Brain/Head without Cont [facility] Work Phone: Start: 12-21-2021 CT Unspecified body region WO contrast [facility] Work Phone: Start: 12-21-2021 Oxygen therapy [facility] Work Phone: Start: 12-21-2021 End: 12-22-2021 [facility] Work Phone: Start: 11-21-2021 Influenza vaccination INFLUENZA (#1) [facility] Start: 09-24-2021 COVID-19 VACCINE (5 - Booster for Pfizer series) COVID-19 VACCINE (5 - Booster for Pfizer series) [facility] Start: 08-30-2021 End: 10-30-2021 PT panel - Platelet poor plasma by Coagulation assay [facility] Work Phone: Comment on above: Expected: 08/30/2021 , Expires: 10/30/2021 Start: 07-08-2021 End: 09-07-2021 Comprehensive metabolic 2000 panel - Serum or Plasma [facility] Work Phone: Comment on above: Expected: 07/08/2021 (Approximate), Expires: 09/07/2021 Start: 07-08-2021 End: 09-07-2021 LIPID PANEL BASIC [facility] Work Phone: Comment on above: Expected: 07/08/2021 (Approximate), Expires: 09/07/2021 Start: 04-27-2021 COVID-19 VACCINE (4 - Booster for Pfizer series) COVID-19 VACCINE (4 - Booster for Pfizer series) [facility] Start: 03-23-2021 ADVANCE DIRECTIVE DISCUSSION ADVANCE DIRECTIVE DISCUSSION [facility] Start: 03-23-2021 DEPRESSION ASSESSMENT DEPRESSION ASS ESSMENT [facility] Start: 02-21-2009 Pneumococcal Vaccine : 65+ (2 - PCV) Pneumococcal Vaccine: 65+ (2 - PCV) [facility] Start: 02-21-2009 PNEUMOCOCCAL: 65+ (2 - PCV) PNEUMOCOCCAL: 65+ (2 - PCV) [facility] Start: 02-23-2008 Urine microalbumin profile DTAP,TDAP,TD (1 - Tdap) [facility] Start: 1995 RSV Vaccine (1 - 1-d ose 60+ series) RSV Vaccine (1 - 1-dose 60+ series) [facility] Start: 08-12-1985 SHINGRIX VACCINE (1 of 2) VALDES GRIX VACCINE (1 of 2) [facility] Anion gap in Serum o r Plasma [facility] BUN/Creatinine ratio [facility] Calcium [Mass/volume ] in Serum or Plasma [facility] Carbon dioxide, tota l [Moles/volume] in Central venous blood [facility] Creatinine [Mass/vol ume] in Serum or Plasma [facility] Glucose [Mass/volume ] in Serum or Plasma [facility] Hemoglobin.gastroint estin al.lower [Presence] in Stool by Immunoassay FECAL OCCULT BLOOD TEST Lab Routine Abnormal CBC 06/04/2023 2:13 PM EDT [facility] Work Phone: INR in Blood by Coagulation assay [facility] Measurement of renal function [facility] End: 05-27-2025 MR Brain WO contrast MRI BRAIN W QUANT WO IVCON Radiology Routine Cognitive impairment, mild, so stated 1 Occurrences starting 04/27/2024 until 05/27/2025 [facility] Work Phone: Comment on above: 1 Occurrences starti ng 04/27/2024 until 05/27/2025 End: 05-27-2025 MR Unspecified body region 3D post processing MRI 3D BRAIN QUANT Radiology Routine Cognitive impairment, mild, so stated 1 Occurrences starting 04/27/2024 until 05/27/2025 [facility] Comment on above: 1 Occurrences starti ng 04/27/2024 until 05/27/2025 End: 03-17-2024 Mri brain brain stem w/o contrast material MRI BRAIN WO IVCON Radiology STAT Cerebral infarction, unspecified mechanism (HCC) 1 Occurrences starting 02/16/2023 until 03/17/2024 [facility] Work Phone: Comment on above: 1 Occurrences starti ng 02/16/2023 until 03/17/2024 Mri brain brain stem w/o contrast material MRI BRAIN WO IVCON Radiology STAT Cerebral infarction, unspecified mechanism (HCC) 02/17/2023 8:13 AM EST [facility] Work Phone: Patient Education ED Weakness (U ncertain Cause) [facility] Work Phone: Patient referral [facility] Work Phone: Potassium measurement [facility] Prothrombin time [facility] End: 09-13-2022 PT panel - Platelet poor plasma by Coagulation assay PROTHROMBIN TIME/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 Encounter for monitoring Coumadin therapy Once per week for 99 Occurrences starting 09/13/2021 until 09/13/2022 [facility] Work Phone: Comment on above: Once per week for 99 Occurrences starting 09/13/2021 until 09/13/2022 PT panel - Platelet poor plasma by Coagulation assay PROTHROMBIN TIME/PT Lab Routine alf current use of anticoagulant Encounter for monitoring Coumadin therapy 09/13/2021 8:42 AM EDT [facility] Work Phone: End: 01-16-2024 PT panel - Platelet poor plasma by Coagulation assay PROTHROMBIN TIME/PT Lab Routine alf current use of anticoagulant Paroxysmal atrial fibrillation (HCC) Once per week for 99 Occurrences starting 01/16/2023 until 01/16/2024 [facility] Work Phone: Comment on above: Once per week for 99 Occurrences starting 01/16/2023 until 01/16/2024 End: 12-23-2024 PT panel - Platelet poor plasma by Coagulation assay PROTHROMBIN TIME Lab STAT 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 24 Occurrences starting 12/24/2023 until 12/23/2024 [facility] Work Phone: Comment on above: 24 Occurrences start ing 12/24/2023 until 12/23/2024 Serum chloride measurement [facility] Sodium measurement [facility] Urea nitrogen [Mass/volume] in Serum or Plasma [facility] End: 01-25-2023 Us soft tissue head & neck real time imge docm US THYROID/PARATHYROID Radiology Routine Thyroid nodule 1 Occurrences starting 12/26/2021 until 01/25/2023 [facility] Work Phone: Comment on above: 1 Occurrences starti ng 12/26/2021 until 01/25/2023 [facility] Immunizations Immunization Date Immunization Notes Care Provider Fa sam 12-03-2023 influenza virus vacc ine, unspecified formulation Stas Mora MD Work Phone: [facility] 01-10-2023 influenza (HD-IIV4) vaccine, age 65+ yr, high dose, quadrivalent, PF (FLUZONE HIGH-DOSE) [facility] 01-10-2023 influenza virus vacc ine, unspecified formulation [facility] 12-26-2021 influenza, high-dose , quadrivalent vaccine (FLUZONE HIGH DOSE QUADRIVALENT) Stas Mora MD Work Phone: [facility] 12-26-2021 influenza virus vacc ine, unspecified formulation [facility]ia Cross [facility] 02-27-2021 tetanus toxoid, redu natividad diphtheria toxoid, and acellular pertussis vaccine, adsorbed Stas Mora MD Work Phone: [facility] 02-27-2021 zoster vaccine recombinant Stas Mora MD Work Phone: [facility] 12-25-2020 Covid (Pfizer) Dr. Stas gonzales Work Phone: [facility] 12-10-2020 influenza (HD-IIV4) vaccine, age 65+ yr, high dose, quadrivalent, PF (FLUZONE HIGH-DOSE) [facility] 12-10-2020 influenza, high dose seasonal, preservative-free Stas Mora MD Work Phone: [facility] 09-17-2020 zoster vaccine recombinant Stas Mora MD Work Phone: [facility] 05-09-2020 Covid (Pfizer) Dr. Stas gonzales Work Phone: [facility] 04-18-2020 Covid (Pfizer) Dr. Stas gonzales Work Phone: [facility] 12-24-2016 influenza, high dose seasonal, preservative-free Stas Mora MD Work Phone: [facility] 12-22-2015 Influenza virus vaccine [facility] 12-22-2015 influenza, seasonal, injectable, preservative free Stas Mora MD Work Phone: [facility] Work Phone: 01-30-2014 influenza, high dose seasonal, preservative-free Stas Mora MD Work Phone: [facility] Work Phone: 01-24-2013 influenza virus vacc ine, unspecified formulation Stas Mora MD Work Phone: [facility] 02-22-2008 pneumococcal polysaccharide vaccine, 23 valent Stas Mora MD Work Phone: [facility] Work Phone: 02-22-2008 tetanus and diphther ia toxoids, adsorbed, preservative free, for adult use (2 Lf of tetanus toxoid and 2 Lf of diphtheria toxoid) Stas Mora MD Work Phone: [facility] Work Phone: Payers Date Payer Category Payer Self-pay [id number] 2022 Unknown [id number] 2016 Medicare [employer] [place] [id number] 2016-Present [phone] [address] [place] [address] O [id number] 2016 Medicare [employer] [place] [id number] 2016-Present [phone] [address] [place] [address] O [id number] 2016 [place] [id number] 2016 Medicare [id number] 1935 Unknown [id number] 2.16840.1.848614.3.579. 2.627 1935 Unknown [id number] 2.840.1.083516.3.579. 2.627 Unknown [place] AUTH REQUIR ED SEE NOTE [id number] Unknown [place] AUTH REQUIR ED SEE NOTE . [id number] Unknown [id number] 2.16840.1.463582.3.579. 2.462 Unknown [id number] 2.16840.1.808109.3.579. 2.462 Unknown [id number] 2.16840.1.592497.3.579. 2.462 Unknown [id number] 2.16840.1.596577.3.579. 2.462 Unknown [id number] 2.16840.1.443100.3.579. 2.462 Unknown [id number] 2.16840.1.527160.3.579. 2.462 Unknown [id number] 2.16840.1.484515.3.579. 2.462 Unknown [id number] 2.16840.1.183327.3.579. 2.462 Unknown [id number] 2.16840.1.150283.3.579. 2.462 Unknown [id number] 2.16.840.1.767689.3.579. 2.462 Unknown [id number] 2.16.840.1.867310.3.579. 2.462 Unknown [id number] 2.16.840.1.539003.3.579. 2.462 Unknown [id number] 2.16.840.1.389069.3.579. 2.462 Unknown [id number] 2.16840.1.577302.3.579. 2.462 Unknown [id number] .840.1.349107.3.579. 2.462 Unknown [id number] 2.840.1.394380.3.579. 2.462 Unknown [id number] 2.840.1.395752.3.579. 2.462 Unknown [id number] 2.840.1.317532.3.579. 2.462 Unknown [id number] 2.840.1.631910.3.579. 2.462 Unknown [id number] 2.840.1.394185.3.579. 2.462 Unknown [id number] 2.840.1.859541.3.579. 2.462 Unknown [id number] 2.840.1.322403.3.579. 2.462 Unknown [id number] .840.1.722304.3.579. 2.462 Unknown [id number] .840.1.494536.3.579. 2.462 Unknown [id number] 2.840.1.425448.3.579. 2.462 Unknown [id number] 2.16840.1.054916.3.579. 2.462 Unknown [id number] 2.16840.1.580215.3.579. 2.462 Unknown [id number] 2.840.1.032213.3.579. 2.462 Unknown [id number] 2.16.840.1.782349.3.579. 2.462 Unknown [id number] 2.16.840.1.794268.3.579. 2.462 Unknown [id number] 2.16.840.1.809045.3.579. 2.462 Unknown [id number] 2.16.840.1.162752.3.579. 2.462 Unknown [id number] 2.16.840.1.637659.3.579. 2.462 Unknown [id number] 2.16.840.1.948846.3.579. 2.462 Unknown [id number] 2.16.840.1.678137.3.579. 2.462 Unknown [id number] 2.16.840.1.978667.3.579. 2.462 Unknown [id number] 2.16.840.1.567917.3.579. 2.462 Unknown [id number] 2.16.840.1.879455.3.579. 2.462 Unknown [id number] 2.16.840.1.992310.3.579. 2.462 Unknown [id number] 2.16.840.1.549039.3.579. 2.462 Social History Date Type Detail Facility Start: 05-04-2017 End: 01-06-2025 Tobacco smoking status NHIS Ex-smoker [facility] Start: 02-15-2021 End: 07-28-2024 Alcohol intake Current non-drinker of alcohol (finding) [facility] Start: 08-26-2020 End: 08-29-2021 History SDOH Alcohol Frequency 2 [facility] Start: 08-26-2020 End: 08-29-2021 History SDOH Alcohol Std Drinks 1 [facility] Start: 08-26-2020 End: 08-29-2021 History SDOH Social Connections [facility] 3 [facility] Start: 08-26-2020 End: 08-29-2021 History SDOH Social Connections Living 5 [facility] Start: 08-26-2020 History SDOH Physical Activity MPS 6 [facility] Start: 08-26-2020 Education 12 [facility] Start: 1935 Sex Assigned At Male [facility] Start: 02-11-2020 End: 12-26-2021 Exposure to SARS-CoV-2 (event) Not sure [facility] History of tobacco use Current smoker [facility] Start: 05-04-2017 End: 12-26-2021 Tobacco use and exposure Smokeless tobacco non-user [facility] Start: 12-21-2021 End: 02-10-2023 Tobacco smoking status NHIS Unknown if ever smoked [facility] Start: 12-22-2021 Non-smoker [facility] Start: 12-26-2021 Tobacco Comment 30 yaers ago [facility] Start: 02-28-2020 End: 08-29-2021 History of Social function [facility] Start: 02-28-2020 End: 08-29-2021 Social connection and isolation panel [facility] Do you belong to any clubs or organizations such as jew groups, unions, fraternal or athletic groups, or school groups? No [facility] Are you now , , , , never or living with a partner? [facility] How often to you hav e a drink containing alcohol? Monthly or less [facility] How many standard dr inks containing alcohol do you have on a typical day? 1 or 2 [facility] How often do you hav e 6 or more drinks on 1 occasion? Never [facility] How hard is it for y ou to pay for the very basics like food, housing, medical care, and heating Not hard at all [facility] Do you feel stress - tense, restless, nervous, or anxious, or unable to sleep at night because your mind is troubled all the time - these days [OSQ] Not at all [facility] (I/We) worried velvet er (my/our) food would run out before (I/we) got money to buy more. Never true [facility] Start: 08-26-2020 Gender identity Identifies as male gender (finding) [facility] Start: 08-26-2020 Sexual orientation Heterosexual (finding) [facility] Sex Assigned At Sex [facility] Are you now , , , , never or living with a partner? [facility] How often to you hav e a drink containing alcohol? 2-4 times a month [facility] Goals Date Patient Goal Desired Activity /State Functional Status Date Assessment Result Facility 09-06-2024 Functional status Ambulates [facility] Work Phone: 07-26-2024 Total score [AUDIT-C] 1 07/27/19 6:26 PM EDT User, Olena [facility] 07-26-2024 Within the last year , have you been humiliated or emotionally abused in other ways by your partner or ex-partner? No 07/26/2024 6:26 PM EDT [email or web address] 07-26-2024 Within the last year , have you been afraid of your partner or ex-partner? No 07/26/2024 6:26 PM EDT [facility], [email or web address] 07-26-2024 Within the last year , have you been raped or forced to have any kind of sexual activity by your partner or ex-partner? No 07/26/2024 6:26 PM EDT [facility], [email or web address] 07-26-2024 Within the last year , have you been kicked, hit, slapped, or otherwise physically hurt by your partner or ex-partner? No 07/26/2024 6:26 PM EDT User, [email or web address] No [facility] 07-26-2024 How often to you hav e a drink containing alcohol? Monthly or less 07/26/2024 6:26 PM EDT User, [email or web address] Monthly or less [facility] 07-26-[address] inks containing alcohol do you have on a typical day? 1 or 2 07/26/2024 6:26 PM EDT User, [email or web address] 1 or 2 [facility] 07-26-2024 How often do you hav e 6 or more drinks on 1 occasion? Never 07/26/2024 6:26 PM EDT User, [email or web address] Never [facility] 11-17-2022 Functional Status Up ad tara Samira [facility] [place] 11-17-2022 Functional Status Identified as high risk, Fall ID band on, Room located near nursing station [facility] 12-22-2021 Functional status Ambulates;Chair [facility] Work Phone: 07-02-2016 Are you deaf, or do you have serious difficulty hearing No 07/02/2016 2:52 PM EDT Anita Zhang, DO No [facility] Work Phone: 07-02-2016 Are you blind, or do you have serious difficulty seeing, even when wearing glasses No 07/02/2016 2:52 PM EDT Anita Zhang, DO No [facility] 07-02-2016 Do you have serious difficulty walking or climbing stairs No 07/02/2016 2:52 PM EDT Anita Zhang, DO No [facility] 07-02-2016 Do you have difficul ty dressing or bathing No 07/02/2016 2:52 PM EDT Anita Zhang, DO No [facility] 07-02-2016 Because of a physica l, mental, or emotional condition, do you have difficulty doing errands alone such as visiting a physician's office or shopping No 07/02/2016 2:52 PM EDT Anita Zhang, DO No [facility] Mental Status Date Assessment Result Facility 09-06-2024 Cognitive function Voice/Name [facility] Work Phone: 09-05-2024 Cognitive function Appropriate;Cooperativ e [facility] Work Phone: 02-10-2023 Cognitive function Level Of Cons ciousness Awake;Alert;Appropriate;Fol lows Commands [facility] Work Phone: 11-17-2022 Mental Status Orientation Oriented x 4 [facility] 11-17-2022 Mental Status [facility] 12-22-2021 Cognitive function Voice/Name [facility] Work Phone: 12-21-2021 Cognitive function Voice/Name [facility] Work Phone: 07-02-2016 Because of a physica l, mental, or emotional condition, do you have serious difficulty concentrating, remembering, or making decisions No 07/02/2016 2:52 PM EDT Anita Zhang, DO No [facility] Clinical Notes 03-12-2020 to 09-21-2024 Telephone Encounter - Petty Vargas - 09/21/2024 9:21 AM EDTTelephone Encounter - Petty Vargas - 09/21/2024 9:21 AM EDT Note Date & Type Note Facility 09-21-2024 Telephone encounter Note Form atting of this note might be different from the original. [facility]. Maria Guadalupe states that he has been in there for two weeks. Please advise [facility] 09-21-2024 Miscellaneous Notes Formattin g of this note might be different from the original. [facility] healthy living for rehabilitation. Maria Guadalupe states that he has been in there for two weeks. Please advise documented in this encounter [facility] 09-06-2024 Consult note [facility] 09-06-2024 Consult note Note Date/Time September 06, 2024 4:37pm [facility] Medical Records Department [address] [place] [address] Counseling Note - Pharmacy 09/06/24 1143 MR#: [id number] Acct: [id number] Name: ROBY FLORES Radha Rep #:[id number] : 1935 89 From: Isabelle Summers PCP: Dr. Stas Mora MD Status:AD M IN Y Location: [place] [address] [place] Med Reconciliation Pharmacy Service has performed discharge [...] ~ Signed [facility] Work Phone: 1(868) 234-833406-17-2025 Discharge summary Author Navid Dominguez [facility] Note Date/Time September 06, 2024 11:[address] [place] [address] Health System Medical Records Department [address] [place] [address] Discharge Summary 09/06/24 1109 MR#: [id number] Acct: [id number] Name: ORBY FLORES Rep #:[id number] : 1935 89 From: Navid Trejo PCP: Dr. Stas Mora MD [place] Location: [place] [address] Providers Date of Admission: 09/02/24 Date of [...] [facility]: INR 2.4. Hold warfarin [...] The daughter is the healthcare power of entrepreneurship program director. #History of dementia: On rivastigmine #Dyslipidemia: [...] (Auto) 66.8, Lymph % (Auto) 16.4 L, [place] % (Auto) 9.1, Eos % (Auto) 6.3 [...] in before D/C Order can be placed): Usp Facility Charges/Coding Visit Charges Inpatient E&M: 44885 Disch Hosp >30min 09/06/24 1114 <Electronically signed by Navid Dominguez MD> Cosigner Signature (if applicable): CC: Dr. Stas Mora MD; Dr. Navid Dominguez MD~ Signed [facility] Work Phone: 1(754) 142-268706-17-2025 Discharge summary Author Navid Dominguez [facility] Note Date/Time September 06, 2024 11:0 9am [facility] Medical Records Department [address] [place] [address] Transfer to [facility] MR#: [id number] Acct: [id number] Name: ROBY FLORES Rep #:[id number] : [...] TO HIS/HER TRANSFER TO THE [facility]. 09/06/24 1109<Electronically signed by Navid Dominguez MD> [...] [facility] # Fever * Patient developed [...] The daughter is the healthcare power of entrepreneurship program director. #History of dementia: On rivastigmine #Dyslipidemia: [...] liberalized regular diet with consistency/texture as per CARPENTER MATE. Will continue 120mL ensure plus HP 4 [...] in before D/C Order can be placed): Usp Facility 09/06/24 1109 <Electronically signed by Navid Dominguez MD> Cosigner Signature (if applicable): CC: Dr. Stas Mora MD; Dr. Kathy Wells MD ~ [facility] Work Phone: 1(172) 972-478106-17-2025 Discharge summary [facility] Medical Records Department [address] [place] [address] Discharge Summary 09/06/24 1109 MR#: [id number] Acct: [id number] Name: ROBY FLORES Rep #:[id number] : 1935 89 From: Navid Trejo PCP: Dr. Stas Mora MD [place] [place] Location: [address] Providers Date of Admission: 09/02/24 Date [...] [facility] the [facility] 09/06: INR 2.4. Hold warfarin [...] The daughter is the healthcare power of entrepreneurship program director. #History of dementia: On rivastigmine #Dyslipidemia: [...] (Auto) 66.8, Lymph % (Auto) 16.4 L, [place] % (Auto) 9.1, Eos % (Auto) 6.3 [...] Attending Provider: Navid Dominguez Primary Care Provider: tSas Mora Consulting Providers: Kathy Wells Instructions Additional [...] in before D/C Order can be placed): Usp Facility Charges/Coding Visit Charges Inpatient E&M: 59564 Disch Hosp >30min 09/06/24 1114 Cosigner Signature (if applicable): CC: Dr. Stas Mora MD; Dr. Navid Dominguez MD~ Signed [facility]06-17-2025 Discharge summary [facility] Medical Records Department [address] [place] [address] Transfer to [facility] MR#: [id number] Acct: [id number] Name: ROBY FLORES Rep #:[id number] : [...] The daughter is the healthcare power of entrepreneurship program director. #History of dementia: On rivastigmine #Dyslipidemia: [...] liberalized regular diet with consistency/texture as per CARPENTER MATE. Will continue 120mL ensure plus HP 4 [...] in before D/C Order can be placed): Usp Facility 09/06/24 1109 Cosigner Signature (if applicable): CC: Dr. Stas Mora MD; Dr. Kathy Wells MD ~ [facility]06-17-2025 [facility] Medical Records Department [address] [place] [address] Discharge Summary 09/06/24 1109 MR#: [id number] Acct: [id number] Name: ROBY FLORES Rep #: [id number] : 1935 89 From: Navid Dominguez MD PCP: Dr. Stas Mora MD Status:ADM IN [facility] Providers Date of Admission: 09/02/24 Date of [...] The daughter is the healthcare power of entrepreneurship program director. #History of dementia: On rivastigmine #Dyslipidemia: [...] content not included)...[facility] 09-05-2024 Progress note Author Navid Dominguez [facility] Note Date/Time September 05, 2024 4:15 pm [facility] Medical Records Department [address] [place] [address] Progress Note - Hospitalist 09/05/24 1608 MR#: [id number] Acct: [id number] Name: ROBY FLORES Rep #:[id number] : 1935 89 From: Navid Trejo PCP: Dr. Stas Mora MD Status:AD M IN Location: [place] [address] Reason for Visit Reason for Visit: Diagnoses [...] Clarity Clear, Urine pH 7.0, Ur Specific [place] 1.005, Urine Protein 15 H, Urine Glucose [...] 77.2 H, Lymph % (Auto) 9.8 L, [place] % (Auto) 7.9, Eos % (Auto) 4.0, [...] [facility] the [facility] # Fever * Patient developed [...] The daughter is the healthcare power of entrepreneurship program director. #History of dementia: On rivastigmine #Dyslipidemia: On statin #Benign essential hypertension: On lisinopril. DVT prophylaxis: * Resume Coumadin today. INR 1.8. Daughter still thinking about that she wants him to continue otherwise. Code status: DNRCCA no intubation * Disposition: Awaiting placement. PT OT on board. Charges/Coding Visit Charges Inpatient E&M: 74929 Subs Hosp L2 09/05/24 1615 <Electronically signed by Navid Dominguez MD> Cosigner Signature (if applicable): CC: ~ Signed [facility] Work Phone: 1(660) 148-487506-16-2025 Progress note [facility] Medical Records Department [address] [place] [address] Progress Note - Hospitalist 09/05/24 160 MR#: [id number] Acct: [id number] Name: ROBY FLORES Radha Rep #:[id number] : 1935 89 From: Navid Trejo PCP: Dr. Stas Mora MD Status:AD M IN Location: [place] WM228-1 Reason for Visit Reason for Visit: Diagnoses [...] Clarity Clear, Urine pH 7.0, Ur Specific [place] 1.005, Urine Protein 15 H, Urine Glucose [...] 77.2 H, Lymph % (Auto) 9.8 L, [place] % (Auto) 7.9, Eos % (Auto) 4.0, [...] [facility] the [facility] # Fever * Patient developed [...] The daughter is the healthcare power of entrepreneurship program director. #History of dementia: On rivastigmine #Dyslipidemia: On statin #Benign essential hypertension: On lisinopril. DVT prophylaxis: * Resume Coumadin today. INR 1.8. Daughter still thinking about that she wants him to continue otherwise. Code status: DNRCCA no intubation * Disposition: Awaiting placement. PT OT on board. Charges/Coding Visit Charges Inpatient E&M: 80501 Subs Hosp L2 09/05/24 1612 Cosigner Signature (if applicable): CC: ~ Signed [facility]06-15-2025 Progress note Author Kathy Wells [facility] Note Date/Time September 04, 2024 3:37 pm [facility] Medical Records Department [address] [place] [address] Progress Note 09/04/24 1412 MR#: [id number] Acct: [id number] Name: ROBY FLORES Rep #:[id number] : 1935 89 From: Kathy Wells MD PCP: Dr. Stas Mora MD Status:AD M IN Location: [place]3 LW337-3 Subjective Subjective Patient seen and examined. He [...] 78.0 H, Lymph % (Auto) 7.8 L, [place] % (Auto) 7.7, Eos % (Auto) 5.3 [...] The daughter is the healthcare power of entrepreneurship program director. * In light of patient's confusion [...] on board. Charges/Coding Visit Charges Inpatient E&M: 04561 Subs Hosp L2 09/04/24 5752 <Electronically signed by Kathy Wells MD> Kathy Wells MD Cosigner Signature (if applicable): CC: ~ Signed [facility] Work Phone: 1(765) 768-763606-15-2025 Progress note [facility] Medical Records Department [address] [place] [address] Progress Note 09/04/24 1412 MR#: [id number] Acct: [id number] Name: ROBY FLORES Rep #:[id number] : 1935 89 From: Kathy Wells MD PCP: Dr. Stas Mora MD Status:AD M IN Location: [place] FX332-5 Subjective Subjective Patient seen and examined. He [...] 78.0 H, Lymph % (Auto) 7.8 L, [place] % (Auto) 7.7, Eos % (Auto) 5.3 [...] The daughter is the healthcare power of entrepreneurship program director. * In light of patient's confusion [...] on board. Charges/Coding Visit Charges Inpatient E&M: 05779 [facility] Hosp L2 09/04/24 4936 Kathy Wells MD Cosigner Signature (if applicable): CC: ~ Signed [facility]06-14-2025 Progress note Author Kathy Wells [facility] Note Date/Time September 03, 2024 6:29 pm [facility] Medical Records Department [address] [place] [address] Progress Note 09/03/24 1135 MR#: [id number] Acct: [id number] Name: ROBY FLORES Rep #:[id number] : 1935 89 From: Kathy Wells MD PCP: Dr. Stas Mora MD Status:AD M IN Location: [place]3 YO636-1 Subjective Subjective Patient seen and examined. He [...] 83.4 H, Lymph % (Auto) 6.7 L, [place] % (Auto) 6.0, Eos % (Auto) 2.8, [...] The daughter is the healthcare power of entrepreneurship program director. * In light of patient's confusion [...] on board. Charges/Coding Visit Charges Inpatient E&M: 64039 Subs Hosp L2 09/03/24 8034 <Electronically signed by Kathy Wells MD> Kathy Wells MD Cosigner Signature (if applicable): CC: ~ Signed [facility] Work Phone: 1(332) 591-445606-14-2025 Progress note [facility] Medical Records Department [address] [place] [address] Progress Note 09/03/24 1135 MR#: [id number] Acct: [id number] Name: ROBY FLORES Rep #:[id number] : 1935 89 From: Kathy Wells MD PCP: Dr. Stas Mora MD Status:AD M IN Location: [place]3 KZ327-3 Subjective Subjective Patient seen and examined. He [...] 83.4 H, Lymph % (Auto) 6.7 L, [place] % (Auto) 6.0, Eos % (Auto) 2.8, [...] The daughter is the healthcare power of entrepreneurship program director. * In light of patient's confusion [...] on board. Charges/Coding Visit Charges Inpatient E&M: 66853 Subs Hosp L2 09/03/24 7341 Kathy Wells MD Cosigner Signature (if applicable): CC: ~ Signed [facility]06-14-2025 Consult note Author Spike De La Cruz [facility] Note Date/Time September 03, 2024 3:49 pm [facility] Medical Records Department [address] [place] [address] Pharmacokinetic/Renal -Consult 09/03/24 1548 MR#: [id number] Acct: [id number] Name: ROBY FLORES Rep #:[id number] : 1935 89 From: Spike Maynard [facility] PCP: Dr. Stas Mora MD Status:AD M [place] [facility] [place] XF056-2 Consult Antibiotic Management Pharmacy has been consulted [...] Labs: Trough: Vancomycin (09/04/24 at 2130) 09/03/24 7524 <Electronically signed by Spike Angelo [facility]> Date _ Spike De La Cruz [facility] Cosigner Signature (if applicable): Date CC: ~ Signed [facility] Work Phone: 1(233) 836-595306-14-2025 Consult note [facility] Medical Records Department [address] [place] [address] Pharmacokinetic/Renal -Consult 09/03/24 1548 MR#: [id number] Acct: [id number] Name: ROBY FLORES Rep #:[id number] : 1935 89 From: Spike Maynard [facility] PCP: Dr. Stas Mora MD Status:AD M [place] Location: [place] [address] Consult Antibiotic Management Pharmacy has been consulted [...] Vancomycin (09/04/24 at 2130) 09/03/24 1549 rowdying [facility]> Date _ Spike De La Cruz [facility] Cosigner Signature (if applicable): Date CC: ~ Signed [facility]06-13-2025 Progress note Author Kathyrachel Wells [facility] Note Date/Time September 02, 2024 6:45 pm [facility] Medical Records Department [address] [place] [address] Progress Note 09/02/24 1404 MR#: [id number] Acct: [id number] Name: ROBY FLORES Rep #:[id number] : 1935 89 From: Kathy Wells MD PCP: Dr. Stas Mora MD Status:AD M IN Location: [place] [address]-1 Subjective Subjective Patient seen and examined. He [...] (Auto) 87.9 H, Lymph %(Auto) 3.8 L, [place] % (Auto) 4.8, Eos % (Auto) 2.2, [...] bleed. [facility] Hydrate gently with IV fluids. [...] The daughter is the healthcare power of entrepreneurship program director. * In light of patient's confusion [...] intubation * Charges/Coding Visit Charges Inpatient E&M: 12513 Subs Hosp L2 09/02/24 3277 <Electronically signed by Kathy Wells MD> Kathy Wells MD Cosigner Signature (if applicable): CC: ~ Signed [facility] Work Phone: 1(908) 848-140206-13-2025 Progress note [facility] Medical Records Department [address] [place] [address] Progress Note 09/02/24 1404 MR#: [id number] Acct: [id number] Name: ROBY FLORES Rep #:[id number] : 1935 89 From: Kathy Wells MD PCP: Dr. Stas Mora MD Status:AD M IN Location: [place]3 FC422-1 Subjective Subjective Patient seen and examined. He [...] (Auto) 87.9 H, Lymph %(Auto) 3.8 L, [place] % (Auto) 4.8, Eos % (Auto) 2.2, [...] bleed. * [facility] Hydrate gently with IV fluids. [...] The daughter is the healthcare power of entrepreneurship program director. * In light of patient's confusion [...] intubation * Charges/Coding Visit Charges Inpatient E&M: 27545 Subs Hosp L2 09/02/24 184 Kathy Wells MD Cosigner Signature (if applicable): CC: ~ Signed [facility]06-13-2025 Evaluation note* Diagnosis Onset Date Resolution Status Admit Date Adult failure to thrive acute [facility], [facility]1983 2024 12:49pm Chronic anticoagulation acute [facility], [facility] 2024 12:49pm Contusion of hip acute August 12:49pm Fall acute September 02 12:49pm History of atrial fibrillation acute September 02, 2024 12:49pm History of dementia acute September 02, 2024 12:49pm History of TIAs acute August 12:49pm Unable to ambulate acute August 212024 12:49pm [facility] Work Phone: 1(250) 322-570906-13-2025 Evaluation note* Diagnosis Onset Date Resolution Status Admit Date Chronic anticoagulation acute [facility], [facility] 2024 12:49pm Contusion of hip acute August 12:49pm Fall acute September 02 12:49pm History of atrial fibrillation acute September 02, 2024 12:49pm History of TIAs acute August 12:49pm Unable to ambulate acute August 212024 12:49pm Adult failure to thrive inactive J 2024 12:49pm History of dementia inactive September 02, 2024 12:49pm [place] [employer] Work Phone: 1(780) 525-221706-12-2025 Consult note Author Zachary Lubin [facility] Note Date/Time September 01, 2024 9:15 pm [facility] Medical Records Department [address] [place] [address] Pharmacokinetic/Renal -Consult 09/01/242113 MR#: [id number] Acct: [id number] Name: ROBY FLORES Rep #:[id number] : 1935 89 From: Zachary Serrano od PCP: Dr. Stas Mora MD Status:ELIAS Saab Location: [place] [address] Consult Antibiotic Management Pharmacy has been consulted [...] ~ Signed [facility] Work Phone: 1(498) 239-236306-12-2025 Progress note Author Marta Black [facility] Note Date/Time September 01, 2024 7:55 pm [facility] Medical Records Department [address] [place] [address] Progress Note - Hospitalist 09/01/241952 MR#: [id number] Acct: [id number] Name: ROBY FLORES Rep #:[id number] : 1935 89 From: Marta Black DO PCP: Dr. Stas Mora MD Status:AD M [facility] Location: [place] [address] Hospitalist Note Called regarding Mr. Flores having [...] ~ Signed [facility] Work Phone: [phone]) 509-580106-12-2025 Consult note [facility] Medical Records Department [address] [place] [address] Pharmacokinetic/Renal -Consult 09/01/242113 MR#: [id number] Acct: [id number] Name: ROBY FLORES Rep #:[id number] : 1935 89 From: Zachary Serrano od PCP: Dr. Stas Mora MD Status:ELIAS M GERMAN Y Location: [place] [address] Consult Antibiotic Management Pharmacy has been consulted [...] ~ Signed [facility]06-12-2025 History and physical note Author Kathy [facility] Note Date/Time September 01, 2024 6:04 pm [facility] Medical Records Department [address] [place] [address] H&P Exam - Hospitalist 09/01/24 1018 MR#: [id number] Acct: [id number] Name: ROBY FLORES Rep #:[id number] : 1935 89 From: Kathy Wells MD PCP: Dr. Stas Mora MD Status:AD M [facility] Location[place] [facility] [place] HPI - General General Date of Admission: [...] in the ED were BP of 180/89, WI of 87, RR of 18 and temp [...] debility and weakness due to mechanical fall. [facility] Medical History Chronic anticoagulation TIA (transient [...] 87.5 H, Lymph % (Auto) 4.8 L, [place] % (Auto) 5.7, Eos % (Auto) 1.2, [...] Clarity Clear, Urine pH 8.0, Ur Specific [place] 1.010, Urine Protein 15 H, Urine Glucose [...] No fracture or dislocation present. Reading Location: [facility] 09/01/24 09:05 IMPRESSION: Cerebral atrophy. Mucosal thickening of the ethmoid sinuses as well as opacification of the left maxillary sinus. Reading Location: [facility]-1 Chest X-Ray 09/01/24 09:25 IMPRESSION: No acute abnormality is seen. Reading Location: [facility] Assessment & Plan Assessment/Plan (1) [...] The daughter is the healthcare power of entrepreneurship program director. * In light of patient's confusion [...] be DNR CCA no intubation. * Total xqnj-ou-ocbu time 16 minutes. Charges/Coding Visit Charges Inpatient E&M: 20722 Init Hosp L3 Procedures Hospitalists Procedures: 88228 Advncd Care Plan 30 Min 09/01/24 1804 <Electronically signed by Kathy Wells MD> Cosigner Signature (if applicable): CC: Dr. Stas Mora MD; Dr. Kathy Wells MD~ Signed [facility] Work Phone: [phone]) 647-911906-12-2025 Progress note [facility] Medical Records Department [address] [place] [address] Progress Note - Hospitalist 09/01/241952 MR#: [id number] Acct: [id number] Name: ROBY FLORES E Rep #:[id number] : 1935 89 From: Marta Black DO PCP: Dr. Stas Mora MD Status:AD M [facility] Location: MD3 QH233-6 Hospitalist Note Called regarding Mr. Flores having [...] ~ Signed [facility]06-12-2025 History and physical note [facility] Medical Records Department [address] [place] [address] H&P Exam - Hospitalist 09/01/24 1018 MR#: [id number] Acct: [id number] Name: ROBY FLORES Rep #:[id number] : 1935 89 From: Kathy Wells MD PCP: Dr. Stas Mora MD Status:AD M [facility] Location: MD3 BI673-1 HPI - General General Date of Admission: [...] in the ED were BP of 180/89, WI of 87, RR of 18 and temp [...] debility and weakness due to mechanical fall. [facility] Medical History Chronic anticoagulation TIA (transient [...] 87.5 H, Lymph % (Auto) 4.8 L, [place] % (Auto) 5.7, Eos % (Auto) 1.2, [...] Clarity Clear, Urine pH 8.0, Ur Specific [place] 1.010, Urine Protein 15 H, Urine Glucose [...] No fracture or dislocation present. Reading Location: [facility] 09/01/24 09:05 IMPRESSION: Cerebral atrophy. Mucosal thickening of the ethmoid sinuses as well as opacification of the left maxillary sinus. Reading Location: [facility]--1 Chest X-Ray 09/01/24 09:25 IMPRESSION: No acute abnormality is seen. Reading Location: [facility]-1 Assessment & Plan Assessment/Plan (1) Adult [...] evidence of intracranial bleed. * Admit to [facility]. Hydrate gently with IV fluids. * [...] The daughter is the healthcare power of entrepreneurship program director. * In light of patient's confusion [...] be DNR CCA no intubation. * Total wbxh-zx-qnwz time 16 minutes. Charges/Coding Visit Charges Inpatient E&M: 35807 Init Hosp L3 Procedures Hospitalists Procedures: 15581 Advncd Care Plan 30 Min 09/01/24 1804 Cosigner Signature (if applicable): CC: Dr. Stas Mora MD; Dr. Kathy Wells MD~ Signed [facility]06-12-2025 Telephone encounter Note* Telephone Encounter - Haydee Oliveros LPN - 09/01/2024 2:49 PM EDT dMetrics message sent [facility]06-12-2025 Miscellaneous Notes* Telephone Encounter - Haydee Oliveros [...] affordable alvarado using Good Rx coupons. At [facility] (his current pharmacy), he can get a 1 mo supply for ~$30. If he switches the prescription to [facility], he can get a 1 mo supply for ~$20. See coupons below. Rivastigmine patches are also available via GoodRx. It appears the cheapest option is through [facility], in which he can get 30 patches for $52. Coupon also below. Sending to PCP to review and provide patient with coupon card information. Russell Aguayo PharmD, [facility] Primary Care Clinical Pharmacist Memantine coupon at [facility] Memantine coupon at [facility] Rivastigmine patches coupon at [facility] documented [facility]Mer[facility] Health06-12-2025 Telephone encounter Note * Telephone Encounter - Luciana Cisneros MD - 09/01/2024 1:26 PM EDT Thanks Russell, Staff please let patient know what the pharmacist as opined on. Regards, Luciana Cisneros MD [facility]06-12-2025 Discharge summary Author Inderjit Gillespie [facility] Note Date/Time September 01, 2024 10:2 5am [facility] Medical Records Department [address] [place] [address] Emergency Department Summary 09/01/24 MR#: [id number] Acct: [id number] Name: ROBY FLORES Rep #:[id number] : [...] shoulders elbows and wrist. He has normal nurse consultant strength. Neurologically he is awake alert. Answering [...] 87.5 H Lymph % (Auto) 4.8 L [place] % (Auto) 5.7 Eos % (Auto) 1.2 [...] Clarity Clear Urine pH 8.0 Ur Specific [place] 1.010 Urine Protein 15 H Urine Glucose [...] No fracture or dislocation present. Reading Location: [facility]-[address] 09/01/24 09:05 IMPRESSION: Cerebral atrophy. Mucosal thickening of the ethmoid sinuses as well as opacification of the left maxillary sinus. Reading Location: [facility]-1 Chest X-Ray 09/01/24 09:25 IMPRESSION: No acute abnormality is seen. Reading Location: [facility]--1 Chest x-ray, 2 views, AP and [...] to thrive Disposition Disposition: Acute Care Hospital [facility] What to do if you have Problems For any increased pain, shortness of breath, bleeding, nausea or vomiting, chestpain, or any unexpected problems, contact your Primary Care Provider. Call [facility] ([phone]) or report to the closest Emergency Room. Call 911 if necessary. 09/01/24 1025 <Electronically signed by Inderjit Gillespie MD> Cosigner Signature (if applicable): CC: Dr. Stas Mora MD ~ Signed [facility] Work Phone: [phone] 377-121906-12-2025 Discharge summary [facility] Medical Records Department [address] [place] [address] Emergency Department Summary 09/01/24 MR#: [id number] Acct: [id number] Name: ROBY FLORES Rep #:[id number] : [...] Prior similar symptoms: No Recent Illness/Hospitalization: No [facility] Medical History Chronic anticoagulation TIA (transient [...] shoulders elbows and wrist. He has normal nurse consultant strength. Neurologically he is awake alert. Answering [...] 87.5 H Lymph % (Auto) 4.8 L [place] % (Auto) 5.7 Eos % (Auto) 1.2 [...] Clarity Clear Urine pH 8.0 Ur Specific [place] 1.010 Urine Protein 15 H Urine Glucose [...] No fracture or dislocation present. Reading Location[facility] 09/01/24 09:05 IMPRESSION: Cerebral atrophy. Mucosal thickening of the ethmoid sinuses as well as opacification of the left maxillary sinus. Reading Location: [facility] Chest X-Ray 09/01/24 09:25 IMPRESSION: No acute abnormality is seen. Reading Location: [facility] Chest x-ray, 2 views, AP and lateral, [...] to thrive Disposition Disposition: Acute Care Hospital [facility] What to do if you have Problems For any increased pain, shortness of breath, bleeding, nausea or vomiting, chestpain, or any unexpected problems, contact your Primary Care Provider. Call [facility] ([phone]) or report tothe closest Emergency Room. Call 911 if necessary. 09/01/24 1025 Cosigner Signature (if applicable): CC: Dr. Stas Mora MD ~ Signed [facility]06-12-2025 Telephone encounter Note* Telephone Encounter - Russell Aguayo, [facility] - 09/01/2024 9:46 AM EDT [...] affordable alvarado using Good Rx coupons. At [facility] (his current pharmacy), he can get a 1 mo supply for ~$30. [facility] mo supply for ~$20. See coupons below. Rivastigmine patches are also available via GoodRx. It appears the cheapest option is through [facility], in which he can get 30 patches for $52. Coupon also below. Sending to PCP to review and provide patient with coupon card information. Russell Aguayo PharmD, [facility] Primary Care Clinical Pharmacist Memantine coupon at [facility] Memantine coupon at [facility] Rivastigmine patches coupon at [facility] Work Phone: 1(949) 984-819306-12-2025 Radiology Diagnostic study note [facility] Imaging Services [address] [place], [place] [address] Brain/Head without Contrast MR#: [id number] Acct: [id number] Name: ROBY FLORES Rep #: [id number] : 1935 M 89 From: Laith Chavez MD PCP: Dr. Stas Mora MD Status: RE G ER Study:Brain/Head without Contrast Date of Exa m: 09/01/24 Exam# [id number] Ordering Dr: Earlene Gillespie MD PROCEDURE: BRAIN/HEAD [...] of the left maxillary sinus. Reading Location: [place] [address] CC: Dr. Inderjit Gillespie MD; Dr. Stas Mora MD ~ Offshore Wind Turbine Technician: Signed [facility]06-12-2025 Radiology Diagnostic study note [facility] Imaging Services [address] [place], [place] [address] Chest 1 View (Portable) MR#: [id number] Acct: [id number] Name: ROBY FLORES Rep #: [id number] : 1935 M 89 From: Laith Chavez MD PCP: Dr. Stas Mora MD Status: RE G ER Study:Chest 1 View (Portable) Date of Exam: 09/01/24 Exam# [id number] Ordering Dr: Earlene Gillespie MD PROCEDURE: CHEST [...] No acute abnormality is seen. Reading Location: [place] [address] CC: Dr. Inderjit Gillespie MD; Dr. Stas Mora MD ~ Offshore Wind Turbine Technician: Signed [facility]06-12-2025 Radiology Diagnostic study note [facility] Imaging Services [address] [place], [place] [address] Hips B/L min 2 views w/ Pelvis MR#: [id number] Acct: [id number] Name: ROBY FLORES Rep #: [id number] : 1935 M 89 From: Laith Chavez MD PCP: Dr. Stas Mora MD Status: RE G ER Study:Hips B/L min 2 views w/ Pelvis Date of Exam: 09/01/24 Exam# [id number] Ordering Dr: Earlene Gillespie MD PROCEDURE: HIPS [...] No fracture or dislocation present. Reading Location: [place] [address] CC: Dr. Inderjit Gillespie MD; Dr. Stas Mora MD ~ Offshore Wind Turbine Technician: Signed [facility]06-11-2025 NoteHNO ID: [id number] Author: LUCIANA CISNEROS MD Service: ? Author [...] and believing his brother, who lives in [place], was present. 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 Additionally, [...] excuse any unintended typographical errors. Recording using KDPOF software for draft documentation of the visit was discussed with the patient/authorized textiles sales representative; all questions welcomed and answered. Patient/authorized textiles sales representative agreed to proceed Luciana Cisneros [facility]06-11-2025 History of Present illness Narrative* Luciana Cisneros [...] and believing his brother, who lives in [place], was present. 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 Additionally, [...] excuse any unintended typographical errors. Recording using KDPOF software for draft documentation of the visit was discussed with the patient/authorized textiles sales representative; all questions welcomed and answered. Patient/authorized textiles sales representative agreed to proceed Luciana Cisneros MD documented in this encounterMercy Health06-11-2025 Telephone encounter Note * Telephone Encounter - Coretta Jalloh 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 Coretta Jalloh [facility] Clinical Pharmacist, Pharmacy Anticoagulation Clinic Pharmacy Anticoagulation Clinic Pager: [phone]. documented in this encounterMercy Health06-11-2025 Instructions* Patient Instructions* Luciana Cisneros MD - [...] if your symptoms change. documented in this encounterMercy Health06-01-2025 Evaluation note* Diagnosis Onset Date Resolution Status [...] 212024 10:24am [facility] Work Phone: [phone] Telephone encounter Note* Telephone Encounter - Coretta Jalloh RPh - 08/03/2024 11:20 AM EDT I have reviewed the below recommendations and agree with plan. Coretta Jalloh PharmD [facility]05-14-2025 Miscellaneous Notes* Telephone Encounter - Coretta Jalloh RPh - 08/03/2024 11:20 AM EDT I have reviewed the below recommendations and agree with plan. Coretta Jalloh PharmD * Telephone Encounter - Adrian HuangCorrectional Nurse), Amanda - 08/03/2024 10:57 AM EDT PATIENT [...] 08/31/2024 Caregiver verbalized understanding. Will route to [facility] as FYBelén. Elana Campbell (Correctional Nurse) * Telephone Encounter - Gaelyaquelin Coretta, 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 Coretta Jalloh [facility] Clinical Pharmacist, Pharmacy Anticoagulation Clinic Pharmacy Anticoagulation Clinic Pager: [phone]. documented in this encounterMercy Health05-14-2025 Telephone encounter Note * Telephone Encounter - Adrian HuangProntoFormsElana Berry - 08/03/2024 10:57 AM EDT PATIENT [...] 08/31/2024 Caregiver verbalized understanding. Will route to [facility] as FYI. 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 Coretta Jalloh [facility] Clinical Pharmacist, Pharmacy Anticoagulation Clinic Pharmacy Anticoagulation Clinic Pager: [phone]. [facility]05-08-2025 History of Present illness Narrative* Stas Mora [...] Coronary atherosclerosis of unspecified type of vessel, [place] or graft Coronary artery disease Other and [...] AM. Rosie Cruz MA documented in this encounterMercy Health05-08-2025 NoteHNO ID: [id number] Author: STAS MORA MD Service: ? Author [...] Coronary atherosclerosis of unspecified type of vessel, [place] or graft Coronary artery disease Other and [...] 2024 11:16 AM. Rosie Cruz [facility]04-16-2025 Telephone encounter Note* Telephone Encounter - Coretta Jalloh 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 Coretta Jalloh [facility] Clinical Pharmacist, Pharmacy Anticoagulation Clinic Pharmacy Anticoagulation Clinic Pager: [phone]. 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 documented in this encounterMercy Health04-09-2025 Telephone encounter Note * Telephone Encounter - Coretta Jalloh RPh - 06/29/2024 9:52 AM EDT [facility] Anticoagulation Episode Summary Anticoagulation Care Providers Provider Role Specialty Phone number Stas Mora MD Referring Family Medicine [phone] Roby Flores is a 88 year old [...] Sat; 2.5 mg all other days Sent [employer] message Advised patient to continue current weekly [...] Pharmacy Anticoagulation Clinic Pharmacy [facility] Pager: [phone]. 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 documented in this encounterMercy Health03-12-2025 Instructions* Patient Instructions* Luciana Cisneros MD - 06/01/2024 3:39 PM EDT Look into adult date care once or twice a week. Physical Therapy for vascular parkinsonism documented in this encounterMercy Health03-12-2025 NoteHNO ID: [id number] Author: LUCIANA CISNEROS MD Service: ? Author Type: Physician Type: Progress Notes Filed: 07/14/2024 16:10 Note Text: [facility] Initial Consult Roby Flores [...] not know 911 Social History: Primary language: Kosovan Marital Status: Single Living situation: Home w/ SO Socially engaged? (participates in activities such as clubs, jew, community center, sports, games, visiting friends/relatives, etc?): They go out to eat sometimes, not as often, most of the time they order stuff and pick it up at home. 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 A [...] an accident, he used to drive the [place], used to drive [place], he picked them up, blacked out and [...] tablet by mouth da (more content not included)...[facility]03-12-2025 History of Present illness Narrative* Luciana Cisneros MD - 06/01/2024 2:58 PM EDT [facility] Initial Consult Roby Flores [...] not know 911 Social History: Primary language: Kosovan Marital Status: Single Living situation: Home w/ SO Socially engaged? (participates in activities such as clubs, jew, community center, sports, games, visiting friends/relatives, etc?): They go out to eat sometimes, not as often, most of the time they order stuff and pick it up at home. 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 A [...] an accident, he used to drive the [place], used to drive [place], he picked them up, blacked out and [...] , Taking? Yes, Authorizing Provider Elvis Kearney APRN.[employer] Medication warfarin (COUMADIN) 1 mg tablet, Sig Take 1 tablet by mouth once daily. Patient not taking: Reported on 04/27/2024, Start Date 11/16/23, End Date , Taking? , Authorizing Provider Elvis Kearney APRN.[employer] Medication furosemide (LASIX) 20 mg tablet, Sig [...] Date 12/17/23, Taking? , Authorizing Provider Elvis Keareny APRN.[employer] Other OTC med/supplements: None Medication Review: - ANY HIGH RISK MEDICATIONS (STOPP CRITERIA): NO ALLERGIES No Known Allergies Review of Systems Difficulty chew/swallow: No Pain: No Tremor: No Incontinence - During the last 3 months did you leak urine? 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 Luciana Cisneros MD [facility] documented in this encounterMercy Health03-06-2025 Telephone encounter Note * Telephone Encounter - Edilia Mosley - 05/26/2024 3:28 PM EST Spoke with patient's significant other and scheduled on geriatric schedule as directed. Edilia Mosley [facility]03-06-2025 Miscellaneous Notes* Telephone Encounter - Edilia Mosley - 05/26/2024 3:28 PM EST Spoke with patient's significant other and scheduled on geriatric schedule as directed. Edilia Mosley * Telephone Encounter - Vicki Patricia LPN - 05/26/2024 3:01 PM EST Patient scheduled for 05/30/24 internal medicine, needs a Geriatric appointment instead Vicki Patricia LPN May 26, 2024 3:01 PM documented in this encounterMercy Health03-06-2025 Telephone encounter Note * Telephone Encounter - Vicki Patricia LPN - 05/26/2024 3:01 PM EST Patient scheduled for 05/30/24 internal medicine, needs a Geriatric appointment instead Vicki Patricia LPN May 26, 2024 3:01 PM [facility]03-06-2025 History of Present illness Narrative* Stas Mora [...] Coronary atherosclerosis of unspecified type of vessel, [place] or graft Coronary artery disease Other and [...] 05/25/2024 1.50 Monocytes % 05/25/2024 8.0 Abs [place] 05/25/2024 0.64 Eosinophils % 05/25/2024 1.0 Abs [...] unspecified vessel or lesion type, unspecified whether [place] or transplanted heart - ICD9: 414.00, ICD10: [...] AM. Rosie Cruz MA documented in this encounterMercy Health03-06-2025 NoteHNO ID: [id number] Author: STAS MORA MD Service: ? Author [...] Coronary atherosclerosis of unspecified type of vessel, [place] or graft Coronary artery disease Other and [...] 05/25/2024 8.8 Bilirubin, T (more content not included)...[facility]03-05-2025 Telephone encounter Note* Telephone Encounter - Paige Hickman RPh - 05/25/2024 1:51 PM EST [facility] Anticoagulation Episode Summary Anticoagulation Care Providers Provider Role Specialty Phone number Stas Mora MD Referring Family Medicine [phone] Roby Flores is a 88 year old [...] Sat; 2.5 mg all other days Sent [employer] message Advised patient to continue current weekly dose as noted above Next INR check due on 06/29/2024 Paige Hickman RPh Clinical Pharmacist, Pharmacy Anticoagulation Clinic Pharmacy Anticoagulation Clinic Pager: [phone]. [facility]03-05-2025 Miscellaneous Notes* Telephone Encounter - Paige Hickman RPh - 05/25/2024 1:51 PM EST [facility] Anticoagulation Episode Summary Anticoagulation Care Providers Provider Role Specialty Phone number Stas Mora MD Referring Family Medicine [phone] Roby Flores is a 88 year old [...] Sat; 2.5 mg all other days Sent [employer] message Advised patient to continue current weekly dose as noted above Next INR check due on 06/29/2024 Paige Hickman RP Clinical Pharmacist, Pharmacy Anticoagulation Clinic Pharmacy Anticoagulation Clinic Pager: [phone]. documented in this encounterMercy Health03-03-2025 History of Present illness Narrative* Shane Baer, [...] PATIENT PRESENTS WITH AN IMPLANTABLE OR ATTACHED SPIRAL MACHINE OPERATOR: No RADIOLOGY DEPARTMENT: MR; Exam(s) Completed: Head: Quant PERIPHERAL IV DATA: Not applicable SIGNED BY: PORTIA Metz)(MR) May 23, 2024 2:44 PM documented in this encounterMercy Health03-03-2025 NoteHNO ID: [id number] Author: SHANE BAER RT(R) Service: Radiology Author [...] PATIENT PRESENTS WITH AN IMPLANTABLE OR ATTACHED SPIRAL MACHINE OPERATOR: No RADIOLOGY DEPARTMENT: MR; Exam(s) Completed: Head: Quant PERIPHERAL IV DATA: Not applicable SIGNED BY: Shane Baer RT(R)(MR) May 23, 2024 2:44 PMDammasch [facility]-07-[facility] Telephone encounter Note* Telephone Encounter - Elana Valdes RN - 04/29/2024 12:50 PM EST Pts significant other Maria Guadalupe called and is notified of providers message and instructions. She voices understanding. Elana Valdes RN [facility]02-07-2025 Miscellaneous Notes* Telephone Encounter - Elana Valdes [...] medication Luciana Ortiz MD documented in this encounterMercy Health02-07-2025 Telephone encounter Note * Telephone Encounter - Luciana Cisneros MD - 04/29/2024 12:35 PM EST Would advice him to take 1000 mcg of vit b12 daily. Luciana Ortiz MD [facility] Work Phone: 1(857) 622-383102-06-2025 Telephone encounter Note* Telephone Encounter - Edilia Chavarria RN - 04/28/2024 4:45 PM EST Patient's significant other notified of results. Significant other states that patient does not take a vitamin B12 vitamin. Edilia Chavarria RN [facility]02-06-2025 Telephone encounter Note* Telephone Encounter - Gayatri Monge MA - 04/28/2024 3:31 PM EST Left message for return call. [facility]02-06-2025 Telephone encounter Note* Telephone Encounter - Gayatri Monge MA - 04/28/2024 3:30 PM EST ----- Message from Luciana Cisneros MD sent at 04/27/2024 10:23 PM EST ----- Vit b12 levels are normal but ths is alittle on the lower side. Please start a phone encounter after confirming with him the dose of his medication Luciana Ortiz MD [facility]02-05-2025 Telephone encounter Note* Telephone Encounter - GaelCoretta jamison [facility] - 04/27/2024 1:59 PM EST [facility] Anticoagulation Episode Summary Anticoagulation Care Providers Provider Role Specialty Phone number Stas Mora MD Referring Family Medicine [phone] Roby Flores is a 88 year old [...] Pharmacy Anticoagulation Clinic Pharmacy Anticoagulation Clinic Pager: [phone]. [facility]02-05-2025 Miscellaneous Notes* Telephone Encounter - Coretta Jalloh RPh - 04/27/2024 1:59 PM EST [facility] Anticoagulation Episode Summary Anticoagulation Care Providers Provider Role Specialty Phone number Stas Mora MD Referring Family Medicine [phone] Roby Flores is a 88 year old [...] Pharmacy Anticoagulation Clinic Pharmacy Anticoagulation Clinic Pager: [phone]. documented in this encounterMercy Health02-05-2025 Instructions* Patient Instructions* Luciana Cisneros MD - 04/27/2024 11:08 AM EST Please get the mri done in [place] Take aricept in the morning Do Physical Therapy Labs today See me after the mri. documented in this encounterMercy Health02-05-2025 NoteHNO ID: [id number] Author: LUCIANA CISNEROS MD Service: ? Author Type: Physician Type: Progress Notes Filed: 04/27/2024 17:09 Note Text: [facility] Initial Consult Roby Flores [...] not know 911 Social History: Primary language: Kosovan Marital Status: Single Living situation: Home w/ SO Socially engaged? (participates in activities such as clubs, jew, community center, sports, games, visiting friends/relatives, etc?): They go out to eat sometimes, not as often, most of the time they order stuff and pick it up at home. 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 with them, however he has not been up to [place] since Jan. No hallucinations. Is not leaving [...] Coronary atherosclerosis of unspecified type of vessel, klawock or graft Coronary artery disease Other and [...] AM. Marta Palacio MA documented in this encounterMercy Health05-22-2024 Telephone encounter Note * Telephone Encounter - Coretta Jalloh, [facility] - 08/12/2023 4:27 PM EDT [facility] Anticoagulation Episode Summary Anticoagulation Care Providers Provider Role Specialty Phone number Stas Mora MD Referring Family Medicine [phone] Roby Flores is a 87 year old [...] Pharmacy Anticoagulation Clinic Pharmacy Anticoagulation Clinic Pager: [phone]. 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 documented in this encounterMercy Health05-15-2024 Telephone encounter Note * Telephone Encounter - Coretta Jalloh RPh - 08/05/2023 4:41 PM EDT [facility] Anticoagulation Episode Summary Anticoagulation Care Providers Provider Role Specialty Phone number Stas Mora MD Referring Family Medicine [phone] Roby Flores is a 87 year old [...] Pharmacy Anticoagulation Clinic Pharmacy Anticoagulation Clinic Pager: [phone]. [facility]05-15-2024 Miscellaneous Notes* Telephone Encounter - Coretta Jalloh RPh - 08/05/2023 4:41 PM EDT [facility] Anticoagulation Episode Summary Anticoagulation Care Providers Provider Role Specialty Phone number Stas Mora MD Referring Family Medicine [phone] Roby Flores is a 87 year old [...] Pharmacy Anticoagulation Clinic Pharmacy Anticoagulation Clinic Pager: [phone]. documented in this encounterMercy Health05-08-2024 Telephone encounter Note * Telephone Encounter - AltafElis kurtzElena, [facility] - 07/29/2023 3:21 PM EDT [facility] Anticoagulation Episode Summary Anticoagulation Care Providers Provider Role Specialty Phone number Stas Mora MD Referring Family Medicine [phone] Roby Flores is a 87 year old [...] Pharmacy Anticoagulation Clinic Pharmacy Anticoagulation Clinic Pager: [phone]. 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 documented in this encounterMercy Health05-01-2024 Telephone encounter Note * Telephone Encounter - Coretta Jalloh RPh - 07/22/2023 4:40 PM EDT [facility] Anticoagulation Episode Summary Anticoagulation Care Providers Provider Role Specialty Phone number Stas Mora MD Referring Family Medicine [phone] Roby E Flores is a 87 year [...] Pharmacy Anticoagulation Clinic Pharmacy Anticoagulation Clinic Pager: [phone]. [facility]05-01-2024 Miscellaneous Notes* Telephone Encounter - Coretta Jalloh, 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 documented in this encounterMercy Health04-24-2024 Telephone encounter Note * Telephone Encounter - Coretta Jalloh RPh - 07/15/2023 3:18 PM EDT [facility] Anticoagulation Episode Summary Anticoagulation Care Providers Provider Role Specialty Phone number Stas Mora MD Referring Family Medicine [phone] Roby Flores is a 87 year old [...] Anticoagulation Clinic Pharmacy Anticoagulation Clinic Pager: [phone]. [facility]04-24-2024 Miscellaneous Notes* Telephone Encounter - Coretta Jalloh RPh - 07/15/2023 3:18 PM EDT [facility] Anticoagulation Episode Summary Anticoagulation Care Providers Provider Role Specialty Phone number Stas Mora MD Referring Family Medicine [phone] Roby Flores is a 87 year old [...] Pharmacy Anticoagulation Clinic Pharmacy Anticoagulation Clinic Pager: [phone]. documented in this encounterMercy Health04-17-2024 Miscellaneous Notes* Telephone Encounter - Coretta Jalloh RPh - 07/08/2023 4:36 PM EDT [facility] Anticoagulation Episode Summary Anticoagulation Care Providers Provider Role Specialty Phone number Stas Mora MD Referring Family Medicine [phone] Roby Flores is a 87 year old [...] Anticoagulation Clinic Pager: [phone]. documented in this encounterMercy Health04-10-2024 Miscellaneous Notes* Telephone Encounter - Coretta Jalloh RPh - 07/01/2023 5:20 PM EDT [facility] Anticoagulation Episode Summary Anticoagulation Care Providers Provider Role Specialty Phone number Stas Mora MD Referring Family Medicine [phone] Roby Flores is a 87 year old [...] Pharmacy Anticoagulation Clinic Pharmacy Anticoagulation Clinic Pager: [phone]. documented in this encounterMercy Health04-04-2024 Telephone encounter Note * Telephone Encounter - Adrian (Correctional NurseElana Berry - 06/25/2023 5:14 PM EDT Images [...] remains on Remote TM list. Elana Campbell (Correctional Nurse) [facility]04-04-2024 Miscellaneous Notes* Telephone Encounter - Adrian (Correctional Nurse)Elana - 06/25/2023 5:14 PM EDT Images from [...] remains on Remote TM list. Elana Campbell (Correctional Nurse) * Telephone Encounter - Stas Mora MD - 06/25/2023 4:44 PM EDT It looks like my office became involved because the on-call doctor was called with his elevated INR. I would prefer he stay with the pharmacy for his routine monitoring. Stas Mora MD * Telephone Encounter - Adrian (Correctional Nurse)Elana - 06/25/2023 4:03 PM EDT Pharm Phone [...] this time Please advise. Elana Campbell CPhT (Accounting Director) [facility]acy Anticoagulation Clinic documented in this encounterMercy Health04-04-2024 Telephone encounter Note * Telephone Encounter - Stas Mora MD - 06/25/2023 4:44 PM EDT It looks like my office became involved because the on-call doctor was called with his elevated INR. I would prefer he stay with the pharmacy for his routine monitoring. Stas Mora MD [facility]04-04-2024 Telephone encounter Note* Telephone Encounter - Adrian HuangCorrectional NurseElana Berry - 06/25/2023 4:03 PM EDT Pharm [...] this time Please advise. Elana Campbell CPhT (Accounting Director) [facility]acy Antico[facility]04-03-2024 Miscellaneous Notes* Telephone Encounter - Jason Eatson MD - 06/24/2023 4:46 PM EDT Order [...] with VKA drugs, such as warfarin, the [employer] 2012 Guideline recommends [...] etc. Keke Tsang MA documented in this encounterMercy Health03-22-2024 Miscellaneous Notes* Telephone Encounter - Marta Palacio [...] no Rosie Cruz Ma documented in this encounterMercy Health03-18-2024 Miscellaneous Notes* Telephone Encounter - Keke Ferraro [...] Jonathan Reagan DO * Telephone Encounter - aMrta Palacio MA - 06/08/2023 3:00 PM EDT Last INR: PT INR 3.2 06/08/2023 Current dose of coumadin is: Pt has been holding Coumadin over the weekend. Last date of dose change: 06/05/23. Previous INR (date and result): 06/05/23 INR: 6.9 Additional Clinical Information or narrative: no documented in this encounterMercy Health03-15-2024 Miscellaneous Notes* Telephone Encounter - Halina Alfaro [...] went over notes below from Jenna Fitzpatrick TRAINING PROGRAM MANAGER. She said no change in his diet, [...] 6.9. Jenna Fitzpatrick APRN.CNP documented in this encounterMercy Health03-15-2024 Miscellaneous Notes* Telephone Encounter - Marta Palacio [...] conference call with me. documented in this encounterMercy Health03-15-2024 Miscellaneous Notes* Telephone Encounter - Marta Palacio [...] if patient calls them. documented in this encounterMercy Health03-14-2024 Miscellaneous Notes* Telephone Encounter - Hortencia Winston RN - 06/04/2023 8:[address] Talampas has left messages for the patient to call back regarding a critical lab. documented in this encounterMercy Health03-14-2024 Miscellaneous Notes* Telephone Encounter - Midna Solorzano, RN - 06/04/2023 12:51 PM EDT [...] you. Jenna Fitzpatrick APRN.SHEMAR documented in this encounterMercy Health03-13-2024 Miscellaneous Notes* Telephone Encounter - Coretta Jalloh RPh - 06/03/2023 3:22 PM EDT [facility] Anticoagulation Episode Summary Anticoagulation Care Providers Provider Role Specialty Phone number Stas Mora MD Referring Family Medicine [phone] Roby E Flores is a 87 year [...] Pharmacy Anticoagulation Clinic Pharmacy Anticoagulation Clinic Pager: [phone]. documented in this encounterMercy Health03-11-2024 History of Present illness Narrative* Stas Mora [...] Coronary atherosclerosis of unspecified type of vessel, klawock or graft Coronary artery disease Other and [...] unspecified vessel or lesion type, unspecified whether klawock or transplanted heart - ICD9: 414.00, ICD10: [...] PM. Marta Palacio MA documented in this encounterMercy Health03-06-2024 Miscellaneous Notes* Telephone Encounter - Coretta Jalloh, [facility] - 05/27/2023 2:23 PM EST [facility] Anticoagulation Episode Summary Anticoagulation Care Providers Provider Role Specialty Phone number Stas Mora MD Referring [facility] [phone] Robykaran Flores is a 87 year old year old male patient being evaluated today for a [facility] Anticoagulation Episode Summary Anticoagulation Care Providers Provider Role Specialty Phone number Stas Mora MD Referring Family [facility] [phone] Roby Flores is a 87 year old [...] ALLERGIES No Known Allergies 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 documented in this encounterMercy Health02-28-2024 Miscellaneous Notes* Telephone Encounter - Coretta Jalloh RPh - 05/20/2023 2:36 PM EST [facility] Anticoagulation Episode Summary Anticoagulation Care Providers Provider Role Specialty Phone number Stas Mora MD Referring Family Medicine [phone] Roby Flores is a 87 year old [...] Pharmacy Anticoagulation Clinic Pharmacy Anticoagulation Clinic Pager: [phone]. 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 documented in this encounterMercy Health02-14-2024 Miscellaneous Notes* Telephone Encounter - Coretta Jalloh RPh - 05/06/2023 3:14 PM EST [facility] Anticoagulation Episode Summary Anticoagulation Care Providers Provider Role Specialty Phone number Stas Mora MD Referring Family Medicine [phone] Roby Flores is a 87 year old [...] INR check scheduled on 05/13/2023 JENNIFER Jalloh [facility] Clinical Pharmacist, Pharmacy Anticoagulation Clinic Pharmacy Anticoagulation Clinic Pager: [phone]. documented in this encounterMercy Health02-07-2024 Miscellaneous Notes* Telephone Encounter - Coretta Jalloh RPh - 04/29/2023 4:00 PM EST [facility] Anticoagulation Episode Summary Anticoagulation Care Providers Provider Role Specialty Phone number Stas Mora MD Referring Family Medicine [phone] Roby Flores is a 87 year old [...] Pharmacy Anticoagulation Clinic Pharmacy Anticoagulation Clinic Pager: [phone]. 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 Elise Paredes [facility] Clinical Pharmacist, Pharmacy Anticoagulation Clinic Pharmacy Anticoagulation Clinic Pager: [phone]. documented in this encounterMercy Health11-28-2023 Miscellaneous Notes* Telephone Encounter - Franca Cohen [...] evaluation Stas Mora MD documented in this encounterMercy Health11-28-2023 History of Present illness Narrative* Janelle Rivera [...] 17, 2023 7:43 AM documented in this encounterMercy Health11-27-2023 History of Present illness Narrative* Stas Mora MD - 02/16/2023 2:00 PM EST Chief Complaint Patient presents with: ED Follow-up HPI Roby Flores is a 87 year old male who presents here today for ER Follow Up.. Pt went to the [facility] ER on 02/10/23 with c/o fatigue, [...] Recheck in 1 week. Below copied from [employer]: Chief Complaint: Fatigue Informant: patient Onset/Context/Timing Onset: [...] any urinary complaints. Patient denies any headaches. [facility] Narrative Medical decision making narrative: [...] Coronary atherosclerosis of unspecified type of vessel, klawock or graft Coronary artery disease Other and [...] Completed Pneumococcal Vaccine: 65+ Completed Data reviewed [facility] ER reports 02/10/23 ASSESSMENT/PLAN: 1. Cerebral [...] PM. Marta Palacio Ma documented in this encounterMercy Health11-24-2023 Miscellaneous Notes* Telephone Encounter - Elise Paredes, 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 Clinical Pharmacist, Pharmacy Anticoagulation Clinic Pharmacy Anticoagulation Clinic Pager: [phone]. 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 documented in this encounterMercy Health10-06-2023 Miscellaneous Notes* Telephone Encounter - Senia Phillips RPh - 12/26/2022 3:04 PM EDT [facility] Anticoagulation Episode Summary Anticoagulation Care Providers Provider Role Specialty Phone number Stas Mora MD Referring Family Medicine [phone] Roby Flores is a 87 year old [...] warfarin instructions: 2.5 mg every day Sent [employer] message Advised patient to continue current weekly dose as noted above Next lab INR check scheduled on 01/09/2023 Senia Phillips RPh Clinical Pharmacist, Pharmacy Anticoagulation Clinic Pharmacy Anticoagulation Clinic Pager: [phone]. 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 documented in this encounterMercy Health09-01-2023 Miscellaneous Notes* Telephone Encounter - Jeimy Duong RPh - 11/21/2022 2:38 PM EDT [facility] Anticoagulation Episode Summary Anticoagulation Care Providers Provider Role Specialty Phone number Stas Mora MD Referring Family Medicine [phone] Roby Flores is a 87 year old [...] Pharmacy Anticoagulation Clinic Pharmacy Anticoagulation Clinic Pager: [phone]. documented in this encounterMercy Health08-28-2023 Hospital Discharge instructions Patient Education 11/17/2022 16:32:18 [...] Wound changes colors Numbness around the wound 1395-6555 [employer]. [address] [place] [address], [place] [address]. All rights reserved. This information is not [...] the ears or bruising around the eyes 6560-3047 [employer]. [address] [place] [address]. All rights reserved. This information is not intended as a substitute for professional medical care. Always follow yourhealthcare professional's instructions. Follow Up Care 11/17/2022 15:05:08 With:Call Physician Referral Address:Unknown When:2-4 days [facility] 08-28-2023 Note Discharge Instructions Thank you for allowing [facility] to assist you with your healthcare needs. [...] Wound changes colors Numbness around the wound 8212-2384 [employer]. [address] [place] [address]. All rights reserved. This information is not [...] the ears or bruising around the eyes 5079-[address] [employer] [place] [address], [place] [address]. All rights reserved. This information is not intended as a substitute for professional medical care. Always follow yourhealthcare professional's instructions. Additional Information VACCINATE! IT SAVES LIVES! Members of the community who have not yet received the COVID-19 vaccine and would like to receive it can visit one of [facility] vaccine clinics. There are many vaccine clinic locations within the [facility]. For locations and available times, please visit [email or web address].[email or web address] It is important to note that some COVID mobile vaccine clinics are held outdoors and may be canceled in rainy or stormy conditions. To learn more about pediatric vaccinations (ages 5-11), we invite you to visit the [facility] webpage. [email or web address]/[email or web address] learn more about the COVID-19 vaccine, we invite you to visit the CDC website for a list of frequently asked questions. https://www.cdc.gov/coronavirus/2019-ncov/vaccines/faq.html [facility] Patient Portal Access Instructions: Stay connected with your healthcare team and access your personal medical information anytime with the [email or web address] Patient Portal. If you would like a full copy of your medical records please contact the [facility] Medical Records Department Thursday through Thursday between 8a.m. and 4:30p.m. Please follow the directions below to access the portal: 1.Access the email account you provided upon registration to the hospital.2.Look for an invitation email from [facility].3.Open the email and access the invitation link: Accept Invitation to [email or web address].Fill in the required العلي to create your account. Sign into [email or web address] with your username and password that you [...] you will allow to register on the [email or web address] Patient Portal for access to your information. You can also access the [email or web address] Patient Portal on the appbackr. Simply click on "Health Records" under "HealthData" and then click on the [employer] logo. HOW TO SAFELY DISPOSE OF PRESCRIPTION [...] Call your local pharmacy or go to [email or web address] to find one close to you.3.Make use of household items: Use cat litter or old coffee grounds to dispose medications if other options arenot available. Mix your drugs with these household products, seal them in an airtight container andthrow it into the garbage. Call [facility]: [phone] to be sure your drugs can be [...] that I should contact my doctor. Patient/Senior Information Developer Signature: Date/Time: Relationship to Patient: Witness Name/Signature: Date/Time: [facility]08-28-2023 Note ORIGINAL EXAMINATION: CT OF [...] Sign Date: 11/17/2022 4:26:20 PM Ordering Provider: [facility]08-18-2023 Miscellaneous Notes* Telephone Encounter - Senia Phillips RPh - 11/07/2022 3:22 PM EDT [facility] Anticoagulation Episode Summary Anticoagulation Care Providers Provider Role Specialty Phone number Stas Mora MD Referring Family Medicine [phone] Roby Flores is a 87 year old [...] warfarin instructions: 2.5 mg every day Sent [employer] message Advised patient to continue current weekly dose as noted above Next lab INR check scheduled on 11/21/2022 Senia Phillips RPh Clinical Pharmacist, Pharmacy Anticoagulation Clinic Pharmacy Anticoagulation Clinic Pager: [phone]. documented in this encounterMercy Health08-11-2023 Miscellaneous Notes* Telephone Encounter - Senia Phillips RPh - 10/31/2022 2:29 PM EDT Patient due to test INR today. Will continue to monitor for results. Senia Phillips RPh documented in this encounterMercy Health08-04-2023 Miscellaneous Notes* Telephone Encounter - Senia Phillips RPh - 10/24/2022 3:13 PM EDT [facility] Anticoagulation Episode Summary Anticoagulation Care Providers Provider Role Specialty Phone number Stas Mora MD Referring Family Medicine [phone] Roby Flores is a 87 year old [...] warfarin instructions: 2.5 mg every day Sent [employer] message Advised patient to decrease total weekly regimen to better reflect overall dose given past few weeks Next lab INR check scheduled on 10/31/2022 Senia Phillips riya Clinical Pharmacist, Pharmacy Anticoagulation Clinic Pharmacy Anticoagulation Clinic Pager: [phone]. documented in this encounterMercy Health07-28-2023 Miscellaneous Notes* Telephone Encounter - Jason Easton [...] call from today by the [facility]. They spoke with pt at [phone] and gave pt instructions on what to do. 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 Yomi Wills [facility] Clinical Pharmacist, Pharmacy Anticoagulation Clinic Pharmacy Anticoagulation Clinic Pager: [phone]. documented in this encounterMercy Health07-07-2023 Miscellaneous Notes* Telephone Encounter - Jeimy Duong RPh - 09/26/2022 2:11 PM EDT [facility] Anticoagulation Episode Summary Anticoagulation Care Providers Provider Role Specialty Phone number Stas Mora MD Referring Family Medicine [phone] Roby Flores is a 87 year old [...] Pharmacy Anticoagulation Clinic Pharmacy Anticoagulation Clinic Pager: [phone]. documented in this encounterMercy Health06-23-2023 Miscellaneous Notes* Telephone Encounter - Jeimy Duong RPh - 09/12/2022 2:50 PM EDT [facility] Anticoagulation Episode Summary Anticoagulation Care Providers Provider Role Specialty Phone number Stas Mora MD Referring Family Medicine [phone] Roby Flores is a 87 year old [...] accidental over dosage, changes in warfarin tablet color/shape/oral hygienist, eating less green vegetables, recent illness/fever/nausea/vomiting/diarrhea, increased [...] Pharmacy Anticoagulation Clinic Pharmacy Anticoagulation Clinic Pager: [phone]. documented in this encounterMercy Health06-06-2023 Instructions* Patient Instructions* Marta Palacio Ma - 08/26/2022 1:36 PM EDT Please check your medications when you get home and make sure that your medications match our list. documented in this encounterMercy Health06-06-2023 History of Present illness Narrative* Sats Mora MD - 08/26/2022 1:20 PM EDT Medical B eligibilty date 1999 Date of last exam 09/05/2021 PAST MEDICAL HISTORY Diagnosis Date Coronary atherosclerosis of unspecified type of vessel, klawock or graft Coronary artery disease Other and [...] wishes: Yes I am willing to follow [place] advanced directives. Depression screen He in the [...] PM. Marta Palacio Ma documented in this encounterMercy Health06-02-2023 Miscellaneous Notes* Telephone Encounter - Senia Phillips [facility] - 08/22/2022 2:50 PM EDT [facility] Anticoagulation Episode Summary Anticoagulation Care Providers Provider Role Specialty Phone number Stas Mora MD Referring Family Medicine [phone] Roby Flores is a 87 year old [...] Fri; 2.5 mg all other days Sent [employer] message Advised patient to continue current weekly dose as noted above Next lab INR check scheduled on 08/29/2022 Senia Phillips RPh Clinical Pharmacist, Pharmacy Anticoagulation Clinic Pharmacy Anticoagulation Clinic Pager: [phone]. documented in this encounterMercy Health04-28-2023 Miscellaneous Notes* Telephone Encounter - Senia Phillips RPh - 07/18/2022 3:29 PM EDT [facility] Anticoagulation Episode Summary Anticoagulation Care Providers Provider Role Specialty Phone number Stas Mora MD Referring Family Medicine [phone] Roby Flores is a 86 year old [...] warfarin instructions: 2.5 mg every day Sent [employer] message Advised patient to continue current weekly dose as noted above Next lab INR check scheduled on 08/01/2022 Senia Phillips RPh Clinical Pharmacist, Pharmacy Anticoagulation Clinic Pharmacy Anticoagulation Clinic Pager: [phone]. 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 documented in this encounterMercy Health04-03-2023 Miscellaneous Notes* Telephone Encounter - Elvis Kearney APRN.KITCHENWHERE MAKER - 06/23/2022 10:17 AM EDT The following approved medication requests have been transmitted electronically. Requested Prescriptions Pending Prescriptions Disp Refills warfarin (COUMADIN) 2.5 mg tablet [Pharmacy Med Name: WARFARIN SODIUM 2.5 MG TABLET] 135 tablet 3 Sig: TAKE 5 MG EVERY MON, DIXIE 2.5 MG ALL OTHER DAYS Elvis Kearney APRN.CNP documented in this encounterMercy Health03-31-2023 Miscellaneous Notes* Telephone Encounter - Seniarachel Phillips 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 documented in this encounterMercy Health03-17-2023 Miscellaneous Notes* Telephone Encounter - Senia Phillips RPh - 06/06/2022 4:18 PM EDT [facility] Anticoagulation Episode Summary Anticoagulation Care Providers Provider Role Specialty Phone number Stas Mora MD Referring Family Medicine [phone] Roby Flores is a 86 year old [...] warfarin instructions: 2.5 mg every day Sent [employer] message Advised patient to continue current weekly dose as noted above Next lab INR check scheduled on 06/20/2022 Senia Phillips RPh Clinical Pharmacist, Pharmacy Anticoagulation Clinic Pharmacy Anticoagulation Clinic Pager: [phone]. documented in this encounterMercy Health03-10-2023 Miscellaneous Notes* Telephone Encounter - Neeru Rice LPN - 05/30/2022 3:02 PM EST Pharmacists manage INR documented in this encounterMercy Health03-02-2023 Miscellaneous Notes* Telephone Encounter - Halina Alfaro [...] you. Jenna Fitzpatrick APRN.SHEMAR documented in this encounterMercy Health03-01-2023 Miscellaneous Notes* Telephone Encounter - Judy Maots RN - 05/21/2022 12:32 PM EST Reason [...] hip/leg 10. : na Protocols used: Hip [id number]-CV, Hip Gtwsgr-[id number]-VR documented in this encounterMercy Health03-01-2023 Miscellaneous Notes* Telephone Encounter - Fani Grace RN - 05/21/2022 12:22 PM EST Patient disconnected during transferred, called multiple time with no answer. documented in this encounterMercy Health02-27-2023 Miscellaneous Notes* Telephone Encounter - Paige Hickman [...] instructions. Franca Cohen LPN documented in this encounterMercy Health02-24-2023 Miscellaneous Notes* Telephone Encounter - Senia Phillips RPh - 05/16/2022 5:10 PM EST Patient due to test INR today. Will continue to monitor for results. Senia Phillips RPh documented in this encounterMercy Health02-10-2023 Miscellaneous Notes* Telephone Encounter - Senia Phillips RPh - 05/02/2022 3:06 PM EST [facility] Anticoagulation Episode Summary Anticoagulation Care Providers Provider Role Specialty Phone number Stas Mora MD Referring Family Medicine [phone] Roby Flores is a 86 year old year old male patient being evaluated today for a Telemanagement visit. Patient is currently on the following anticoagulant(s) Warfarin. Labs PT INR (no units) Date Value 05/15/2021 2.3 04/17/2021 1.9 03/13/2021 Test sent to [facility]. INR (no units) Date Value 05/02/2022 2.1 [...] warfarin instructions: 2.5 mg every day Sent [employer] message Advised patient to continue current weekly dose as noted above Next lab INR check scheduled on 05/16/2022 Senia Phillips RPh Clinical Pharmacist, Pharmacy Anticoagulation Clinic Pharmacy Anticoagulation Clinic Pager: [phone]. documented in this encounterMercy Health01-27-2023 Miscellaneous Notes* Telephone Encounter - Senia Phillips RPh - 04/18/2022 4:25 PM EST [facility] Anticoagulation Episode Summary Anticoagulation Care Providers Provider Role Specialty Phone number Stas Mora MD Referring Family Medicine [phone] Roby Flores is a 86 year old year old male patient being evaluated today for a Telemanagement visit. Patient is currently on the following anticoagulant(s) Warfarin. Labs PT INR (no units) Date Value 05/15/2021 2.3 04/17/2021 1.9 03/13/2021 Test sent to [facility]. 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 documented in this encounterMercy Health01-13-2023 Miscellaneous Notes* Telephone Encounter - Elise Paredes RPh - 04/04/2022 4:09 PM EST [facility] Anticoagulation Episode Summary Anticoagulation Care Providers Provider Role Specialty Phone number Stas Mora MD Referring Family Medicine [phone] Roby Flores is a 86 year old year old male patient being evaluated today for a Lab INR. Patient is currently on the following anticoagulant(s) Warfarin. Labs PT INR (no units) Date Value 05/15/2021 2.3 04/17/2021 1.9 03/13/2021 Test sent to [facility]. INR (no units) Date Value 04/04/2022 3.3 [...] getting labs every 2 weeks Elise Paredes [facility] Clinical Pharmacist, Pharmacy Anticoagulation Clinic Pharmacy Anticoagulation Clinic Pager: [phone]. documented in this encounterMercy Health01-09-2023 Miscellaneous Notes* Telephone Encounter - Rosie Cruz Ma - 03/31/2022 5:12 PM EST Office received continuity of care paperwork from the [place] requesting pt's last OV, labs and Imm. PerPCP okay to fax back requested records. Faxed back to [facility] at F#: [phone]. Rosie Cruz Ma documented in this encounterMercy Health12-30-2022 Miscellaneous Notes* Telephone Encounter - Carmelina Cruz [facility] - 03/21/2022 4:05 PM EST [facility] Anticoagulation Episode Summary Anticoagulation Care Providers Provider Role Specialty Phone number tSas Mora MD Referring Family Medicine [phone] Roby Flores is a 86 year old year old male patient being evaluated today for a Telemanagement visit. Patient is currently on the following anticoagulant(s) Warfarin. Labs PT INR (no units) Date Value 05/15/2021 2.3 04/17/2021 1.9 03/13/2021 Test sent to [facility]. INR (no units) Date Value 03/21/2022 2.9 [...] 2.5 mg every day; Starting 03/21/2022 Sent [employer] message Advised patient to continue current weekly dose as noted above Next home INR check scheduled on 04/04/2022 Carmelina Cruz RPh Clinical Pharmacist, Pharmacy Anticoagulation Clinic Pharmacy Anticoagulation Clinic Pager: [phone]. * Telephone Encounter - Carmelina Cruz RPh - 03/21/2022 3:12 PM EST Patient due to test INR today. Will continue to monitor for results. Carmelina Cruz RPh documented in this encounterMercy Health12-02-2022 Miscellaneous Notes* Telephone Encounter - Oliva Westbrook [...] whatever he wanted to. documented in this encounterMercy Health10-31-2022 Miscellaneous Notes* Telephone Encounter - Paige Hickman RPh - 01/20/2022 3:55 PM EDT [facility] Anticoagulation Episode Summary Anticoagulation Care Providers Provider Role Specialty Phone number Stas Mora MD Referring Family Medicine [phone] Roby Flores is a 86 year old year old male patient being evaluated today for a Telemanagement visit. Patient is currently on the following anticoagulant(s) Warfarin. Labs PT INR (no units) Date Value 05/15/2021 2.3 04/17/2021 1.9 03/13/2021 Test sent to [facility]. INR (no units) Date Value 01/20/2022 1.7 [...] instructed to call [facility] at [phone] with any questionsor concerns. Paige Hickman RPh Clinical Pharmacist, Pharmacy Anticoagulation Clinic Pharmacy Anticoagulation Clinic Pager: [phone] documented in this encounterMercy Health10-28-2022 Miscellaneous Notes* Telephone Encounter - Senia Phillips [...] the providers message. Sent information as a [employer] message as well. Elana Valdes RN * Telephone Encounter - Stas Mora MD - 01/17/2022 4:25 PM EDT Hold coumadin Recheck INR on Thursday Stas Moar MD * Telephone Encounter - Rosie Cruz [...] to contact patient with no answer at [phone]. Current dose of coumadin is: 2.5 mg every day . Previous INR (date and result): 01/03/22 2.4 documented in this encounterMercy Health10-24-2022 Miscellaneous Notes* Telephone Encounter - Jenna Fitzpatrick [...] advise. López Mckenna LPN documented in this encounterMercy Health10-14-2022 Miscellaneous Notes* Telephone Encounter - Senia Phillips RPh - 01/03/2022 4:11 PM EDT [facility] Anticoagulation Episode Summary Anticoagulation Care Providers Provider Role Specialty Phone number Stas Mora MD Referring Family Medicine [phone] Roby Flores is a 86 year old year old male patient being evaluated today for a Telemanagement visit. Patient is currently on the following anticoagulant(s) Warfarin. Labs PT INR (no units) Date Value 05/15/2021 2.3 04/17/2021 1.9 03/13/2021 Test sent to [facility]. INR (no units) Date Value 01/03/2022 2.4 [...] warfarin instructions: 2.5 mg every day Sent [employer] message Advised patient to continue current weekly dose as noted above Next lab INR check scheduled on 01/17/2022 Senia Phillips RPh Clinical Pharmacist, Pharmacy Anticoagulation Clinic Pharmacy Anticoagulation Clinic Pager: [phone]. documented in this encounterMercy Health10-14-2022 Miscellaneous Notes* Telephone Encounter - Marta Palacio Ma - 01/03/2022 10:49 AM EDT Pt notified of results via [employer]. Marta Palacio Ma * Telephone Encounter - Stas Mora MD - 01/02/2022 6:07 PM EDT Please notify patient that his thyroid ultrasound looks OK, the nodules are all small, appear normal, and do not need any further evaluation pr follow up. Stas Mora MD documented in this encounterMercy Health10-06-2022 History of Present illness Narrative* Stas Mora [...] about 1-2 hours. Pt was admitted to [facility] ER 12/21/21 with stroke sx however [...] in the last year. Below copied from [facility]: HPI History of Present Illness Chief [...] extremities. He has 5 out of 5 nurse consultant strength bilaterally. Dorsi and plantar flexion intact. 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 Hospital Course: 1. TIA/paroxysmal A. [id number]old male presented with right-sided weakness and aphasia, [...] Coronary atherosclerosis of unspecified type of vessel, [place] or graft Coronary artery disease Other and [...] 12/06/2024 ADVANCE DIRECTIVE DISCUSSION Completed Data reviewed [facility] reports from 10/21/21-10/22/21 ASSESSMENT/PLAN: 1. Hospital [...] unspecified vessel or lesion type, unspecified whether klaw[place] or transplanted heart - ICD9: 414.00, ICD10: [...] AM. Marta Palacio Ma documented in this encounterMercy Health09-30-2022 Miscellaneous Notes* Telephone Encounter - Senia Phillips [facility] - 12/20/2021 4:39 PM EDT [facility] Anticoagulation Episode Summary Anticoagulation Care Providers Provider Role Specialty Phone number Stas Mora MD Referring Family Medicine [phone] Roby Flores is a 86 year old year old male patient being evaluated today for a Telemanagement visit. Patient is currently on the following anticoagulant(s) Warfarin. Labs PT INR (no units) Date Value 05/15/2021 2.3 04/17/2021 1.9 03/13/2021 Test sent to [facility]. INR (no units) Date Value 12/20/2021 2.1 [...] warfarin instructions: 2.5 mg every day Sent [employer] message Advised patient to continue current weekly dose as noted above Next lab INR check scheduled on 01/03/2022 Senia Phillips RPh Clinical Pharmacist, Pharmacy Anticoagulation Clinic Pharmacy Anticoagulation Clinic Pager: [phone]. documented in this encounterMercy Health09-16-2022 Miscellaneous Notes* Telephone Encounter - Senia Phillips RPh - 12/06/2021 4:29 PM EDT [facility] Anticoagulation Episode Summary Anticoagulation Care Providers Provider Role Specialty Phone number Stas Mora MD Referring [facility] [phone] Roby Flores is a 86 year old year old male patient being evaluated today for a Telemanagement visit. Patient is currently on the following anticoagulant(s) Warfarin. Labs PT INR (no units) Date Value 05/15/2021 2.3 04/17/2021 1.9 03/13/2021 Test sent to [facility]. INR (no units) Date Value 12/06/2021 3.8 [...] Pharmacy Anticoagulation Clinic Pharmacy Anticoagulation Clinic Pager: [phone]. documented in this encounterMercy Health09-02-2022 Miscellaneous Notes* Telephone Encounter - Janice Huang RPh - 11/22/2021 5:17 PM EDT [facility] Anticoagulation Episode Summary Anticoagulation Care Providers Provider Role Specialty Phone number Stas Mora MD Referring [facility] [phone] Roby Flores is a 86 year old year old male patient being evaluated today for a Telemanagement visit. Patient is currently on the following anticoagulant(s) Warfarin. Labs PT INR (no units) Date Value 05/15/2021 2.3 04/17/2021 1.9 03/13/2021 Test sent to [facility]. INR (no units) Date Value 11/22/2021 2.4 [...] Advised pt to Call Coumadin Clinic at [phone] to confirm dosing and follow-up Janice Huang [facility] Clinical Pharmacist, Pharmacy Anticoagulation Clinic Pharmacy Anticoagulation Clinic Pager: [phone]. documented in this encounterMercy Health08-19-2022 Miscellaneous Notes* Telephone Encounter - Senia PhillipsEnrique - 11/08/2021 5:01 PM EDT [facility] Anticoagulation Episode Summary Anticoagulation Care Providers Provider Role Specialty Phone number Stas Mora MD Referring [facility] [phone] Roby Flores is a 86 year old year old male patient being evaluated today for a Telemanagement visit. Patient is currently on the following anticoagulant(s) Warfarin. Labs PT INR (no units) Date Value 05/15/2021 2.3 04/17/2021 1.9 03/13/2021 Test sent to [facility]. 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 documented in this encounterMercy Health08-05-2022 Miscellaneous Notes* Telephone Encounter - Janice Huang RPh - 10/25/2021 4:16 PM EDT [facility] Anticoagulation Episode Summary Anticoagulation Care Providers Provider Role Specialty Phone number Stas Mora MD Referring [facility] [phone] Roby Flores is a 86 year old year old male patient being evaluated today for a Telemanagement visit. Patient is currently on the following anticoagulant(s) Warfarin. Labs PT INR (no units) Date Value 05/15/2021 2.3 04/17/2021 1.9 03/13/2021 Test sent to [facility]. INR (no units) Date Value 10/25/2021 4.1 [...] Pharmacy Anticoagulation Clinic Pharmacy Anticoagulation Clinic Pager: [phone] . documented in this encounterMercy Health07-08-2022 Miscellaneous Notes* Telephone Encounter - Elana Campbell (Correctional Nurse) - 09/27/2021 4:50 PM EDT PATIENT CALL Patient called call center regarding results. Patient called and stated he had his INR checked today (09/27) and it was 2.3. Patient can be called at [phone] with any questions or sent [facility] message if result is within range. PT INR (no units) Date Value 05/15/2021 2.3 04/17/2021 1.9 03/13/2021 Test sent to [facility]. INR (no units) Date Value 09/27/2021 2.3 09/13/2021 2.7 08/30/2021 2.1 Elana Campbell (Correctional Nurse) * Telephone Encounter - Yomi Wills RPh - 09/27/2021 6:28 AM EDT Patient due to test INR today. Will continue to monitor for results. Yomi Wills RPh documented in this encounterMercy Health06-24-2022 Miscellaneous Notes* Telephone Encounter - Senia Phillips RPh - 09/13/2021 4:11 PM EDT [facility] Anticoagulation Episode Summary Anticoagulation Care Providers Provider Role Specialty Phone number Stas Mora MD Referring [facility] [phone] Roby Flores is a 86 year old year old male patient being evaluated today for a Telemanagement visit. Patient is currently on the following anticoagulant(s) Warfarin. Labs PT INR (no units) Date Value 05/15/2021 2.3 04/17/2021 1.9 03/13/2021 Test sent to [facility]. 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 documented in this encounterMercy Health06-16-2022 History of Present illness Narrative* Stas Mora MD - 09/05/2021 11:20 AM EDT Medical B eligibilty date 1999 Date of last exam 08/28/2020 PAST MEDICAL HISTORY Diagnosis Date Coronary atherosclerosis of unspecified type of vessel, [place] or graft Coronary artery disease Other and [...] [place] every 6 [place]. Pt follows with [facility] Pharm[facility] for Coumadin management. Pt denies any other Specialist. End of Live Planning discussed including patients advanced directive wishes: Yes has both. Daughteris his POA. I am willing to follow [place] advanced directives. Depression screen He in the [...] to remember the following three words: [place], [place] and Chair Visuospatial/Executive Functioning: Clock drawin/2 (Normal [...] AM. Rosie Cruz Ma documented in this encounterMercy Health06-10-2022 Miscellaneous Notes* Telephone Encounter - Senia Phillips RPh - 08/30/2021 5:10 PM EDT [facility] Anticoagulation Episode Summary Anticoagulation Care Providers Provider Role Specialty Phone number Stas Mora MD Referring [facility] [phone] Roby Flores is a 86 year old year old male patient being evaluated today for a Telemanagement visit. Patient is currently on the following anticoagulant(s) Warfarin. Labs PT INR (no units) Date Value 05/15/2021 2.3 04/17/2021 1.9 03/13/2021 Test sent to [facility]. INR (no units) Date Value 08/30/2021 2.1 [...] result of 2.1 is therapeutic Plan: Sent [employer] message Advised patient to continue current weekly dose Next lab INR check scheduled on 09/13/2021 Senia Phillips RPh Clinical Pharmacist, Pharmacy Anticoagulation Clinic Pharmacy Anticoagulation Clinic Pager: [phone] . documented in this encounterMercy Health06-10-2022 Miscellaneous Notes* Telephone Encounter - Jenna Fitzpatrick APRN.CNP - 08/30/2021 8:56 AM EDT Needs order for PT/INR, order signed. Jenna Fitzpatrick APRN.SHEMAR documented in this encounterMercy Health05-27-2022 Miscellaneous Notes* Telephone Encounter - Rosie Cruz Ma - 08/16/2021 2:18 PM EDT INR has been reviewed in another encounter. Rosie Cruz Ma documented in this encounterMercy Health05-13-2022 Miscellaneous Notes* Telephone Encounter - Senia Phillips RPh - 08/02/2021 4:11 PM EDT [facility] Anticoagulation Episode Summary Anticoagulation Care Providers Provider Role Specialty Phone number Stas Mora MD Referring [facility] [phone] Roby Flores is a 85 year old year old male patient being evaluated today for a Telemanagement visit. Patient is currently on the following anticoagulant(s) Warfarin. Labs PT INR (no units) Date Value 05/15/2021 2.3 04/17/2021 1.9 03/13/2021 Test sent to [facility]. INR (no units) Date Value 08/02/2021 3.2 [...] Pharmacy Anticoagulation Clinic Pharmacy Anticoagulation Clinic Pager: [phone] . documented in this encounterMercy Health04-27-2022 Miscellaneous Notes* Telephone Encounter - Rosie Cruz [...] to stay off any cholesterol medications. Stas Mroa MD * Telephone Encounter - Jessica Mcfadden [...] months Stas Mora MD documented in this encounterMercy Health04-25-2022 Miscellaneous Notes* Telephone Encounter - Elvis Kearney APRN.CNP - 07/15/2021 12:39 PM EDT The following approved medication requests have been transmitted electronically. Pending Prescriptions Disp Refills WARFARIN 2.5 MG TABLET 135 tablet 3 Sig: TAKE 5 MG EVERY MON, DIXIE 2.5 MG ALL OTHER DAYS MESFIN: No Elvis Kearney APRN.CNP documented in this encounterMercy Health04-18-2022 History of Present illness Narrative* Stas Mora [...] SOB. No swelling in feet orankles. No anode rebuilder. Taking Fosinopril 10 mg daily. Lipid: Taking [...] Coronary atherosclerosis of unspecified type of vessel, klaw[place] or graft Coronary artery disease Other and [...] unspecified vessel or lesion type, unspecified whether [place] or transplanted heart - ICD9: 414.00, ICD10: [...] AM. Marta Palacio Ma documented in this encounterMercy Health04-13-2022 Miscellaneous Notes* Telephone Encounter - Coretta Jalloh, [facility] - 07/03/2021 3:40 PM EDT [facility] Anticoagulation Episode Summary Anticoagulation Care Providers Provider Role Specialty Phone number Stas Mora MD Referring [facility] [phone] Roby Flores is a 85 year old year old male patient being evaluated today for a Lab INR. Patient is currently on the following anticoagulant(s) Warfarin. Labs PT INR (no units) Date Value 05/15/2021 2.3 04/17/2021 1.9 03/13/2021 Test sent to [facility]. INR (no units) Date Value 07/03/2021 4.5 06/12/2021 3.5 Creatinine (mg/dL) Date Value 03/13/2021 0.80 08/28/2020 0.83 Bilirubin, Total (mg/dL) Date Value 03/13/2021 0.5 ALT (U/L) Date Value 03/13/2021 24 AST (U/L) Date Value 03/13/2021 24 CrCl cannot be calculated (Unknown ideal weight.). 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 * Telephone Encounter - Marta Palacio Ma - 07/03/2021 3:05 PM EDT INR 4.5. Results routed to pharmacist who Handles pt coumadin. Marta Palacio Ma documented in this encounterMercy Health03-23-2022 Miscellaneous Notes* Telephone Encounter - Coretta Jalloh RPh - 06/12/2021 3:20 PM EDT [facility] Anticoagulation Episode Summary Anticoagulation Care Providers Provider Role Specialty Phone number Stas Mora MD Referring [facility] [phone] Roby Flores is a 85 year old year old male patient being evaluated today for a Lab INR. Patient is currently on the following anticoagulant(s) Warfarin. Labs PT INR (no units) Date Value 05/15/2021 2.3 04/17/2021 1.9 03/13/2021 Test sent to [facility]. INR (no units) Date Value 06/12/2021 3.5 Creatinine (mg/dL) Date Value 03/13/2021 0.80 08/28/2020 0.83 Bilirubin, Total (mg/dL) Date Value 03/13/2021 0.5 ALT (U/L) Date Value 03/13/2021 24 AST (U/L) Date Value 03/13/2021 24 CrCl cannot be calculated (Unknown ideal weight.). 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 Patient verbalizes understanding of the plan. Patient denies need for refills. Coretta Jalloh RPh Clinical Pharmacist, Pharmacy Anticoagulation Clinic Pharmacy Anticoagulation Clinic Pager: [phone] . * Telephone Encounter - Rosie Cruz Ma - 06/12/2021 3:08 PM EDT Pt's INR results have finalized. Routing to pharm to review and advise. Rosie Cruz Ma documented in this encounterMercy Health12-21-2020 History of Present illness Narrative* Hussein George [...] 12, 2020 5:01 PM documented in this encounterMercy HealthDischarge summary Author Inderjit Gillespie [facility] Note Date/Time September 01, 2024 10:2 5am [facility] Medical Records Department [address] [place] [address] Emergency Department Summary 09/01/24 MR#: [id number] Acct: [id number] Name: ROBY FLORES Rep #:[id number] : [...] shoulders elbows and wrist. He has normal nurse consultant strength. Neurologically he is awake alert. Answering [...] 87.5 H Lymph % (Auto) 4.8 L [place] % (Auto) 5.7 Eos % (Auto) 1.2 [...] Clarity Clear Urine pH 8.0 Ur Specific [place] 1.010 Urine Protein 15 H Urine Glucose [...] No fracture or dislocation present. Reading Location: [facility]--[address] 09/01/24 09:05 IMPRESSION: Cerebral atrophy. Mucosal thickening of the ethmoid sinuses as well as opacification of the left maxillary sinus. Reading Location: [facility]-IR-1 Chest X-Ray 09/01/24 09:25 IMPRESSION: No acute abnormality is seen. Reading Location: [facility]-1 Chest x-ray, 2 views, AP and [...] to thrive Disposition Disposition: Acute Care Hospital [facility] What to do if you have Problems For any increased pain, shortness of breath, bleeding, nausea or vomiting, chestpain, or any unexpected problems, contact your Primary Care Provider. Call [facility] ([phone]) or report to the closest Emergency Room. Call 911 if necessary. 09/01/24 1025 <Electronically signed by Inderjit Gillespie MD> Cosigner Signature (if applicable): CC: Dr. Stas Mora MD ~ Signed [facility] Work Phone: Evaluation + Plan note No data available for this section [facility] Evaluation note* Diagnosis alf current use of anticoagulant- Primary Long-term (current) use of anticoagulants Paroxysmal atrial fibrillation (HCC) Atrial fibrillation documented in this encounter [facility]* Diagnosis alf current use of anticoagulant- Primary Long-term (current) use of anticoagulants Paroxysmal atrial fibrillation (HCC) Atrial fibrillation documented in this encounter [facility]* Diagnosis Essential hypertension, benign- Primary Atherosclerosis of coronary artery without angina pectoris, unspecified vessel or lesion type, unspecified whether [place] or transplanted heart Paroxysmal atrial fibrillation (HCC) Atrial fibrillation Primary osteoarthritis of both knees Primary localized osteoarthrosis, lower leg [facility] Diagnosis Atherosclerosis of coronary artery without angina pectoris, unspecified vessel or lesion type, unspecified whether [place] or transplanted heart- Primary Essential hypertension, benign [facility]* Diagnosis alf current use of anticoagulant- Primary Long-term (current) use of anticoagulants Paroxysmal atrial fibrillation (HCC) Atrial fibrillation documented in this encounter [facility]* Diagnosis Elevated INR- Primary Abnormal coagulation profile [facility] Diagnosis alf current use of anticoagulant- Primary Long-term (current) use of anticoagulants Paroxysmal atrial fibrillation (HCC) Atrial fibrillation [facility] Diagnosis Encounter for Medicare annual wellness exam- Primary Routine general medical examination at a health care facility Paroxysmal atrial fibrillation (HCC) Atrial fibrillation Essential hypertension, benign [facility] Diagnosis alf current use of anticoagulant- Primary Long-term (current) use of anticoagulants Encounter for monitoring Coumadin therapy Encounter for therapeutic drug monitoring [facility] Diagnosis alf current use of anticoagulant- Primary Long-term (current) use of anticoagulants Paroxysmal atrial fibrillation (HCC) Atrial fibrillation documented in this encounter [facility] note* 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 Long-term (current) use of anticoagulants Paroxysmal atrial fibrillation (HCC) Atrial fibrillation documented in this encounter [facility] note* Diagnosis Onset Date Resolution Status [...] unspecified vessel or lesion type, unspecified whether [place] or transplanted heart documented in this encounter [facility] note* 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 Long-term (current) use of anticoagulants Paroxysmal atrial fibrillation (HCC) Atrial fibrillation documented in this encounter [facility] note* Diagnosis alf current use of anticoagulant- Primary Long-term (current) use of anticoagulants Paroxysmal atrial fibrillation (HCC) Atrial fibrillation documented in this encounter [facility] note* Diagnosis alf current use of anticoagulant- Primary Long-term (current) use of anticoagulants Paroxysmal atrial fibrillation (HCC) Atrial fibrillation documented in this encounter [facility] note* Diagnosis Encounter for Medicare annual wellness exam- Primary Routine general medical examination at a [facility] Paroxysmal atrial fibrillation (HCC) Atrial fibrillation Essential hypertension, benign Hyperlipidemia, unspecified hyperlipidemia type [facility]* Diagnosis alf current use of anticoagulant- Primary Long-term (current) use of anticoagulants Paroxysmal atrial fibrillation (HCC) Atrial fibrillation documented in this encounter [facility] note* Diagnosis alf current use of anticoagulant- Primary Long-term (current) use of anticoagulants Paroxysmal atrial fibrillation (HCC) Atrial fibrillation documented in this encounter [facility] note* Diagnosis alf current use of anticoagulant- Primary Long-term (current) use of anticoagulants Paroxysmal atrial fibrillation (HCC) Atrial fibrillation [facility]* 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 Long-term (current) use of anticoagulants Paroxysmal atrial fibrillation (HCC) Atrial fibrillation documented in this encounter [facility] noteNo assessment information availableWRegency [facility] Work Phone: Evaluation note* 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 Long-term (current) use of anticoagulants Paroxysmal atrial fibrillation (HCC) Atrial fibrillation documented in this encounter [facility] note* Diagnosis Cerebral infarction, unspecified mechanism (HCC)- Primary Generalized weakness Other malaise and fatigue Speech disturbance, unspecified type Hyperlipidemia, unspecified hyperlipidemia type Essential hypertension, benign Paroxysmal atrial fibrillation (HCC) Atrial fibrillation [facility]* Diagnosis Cerebral infarction, unspecified mechanism (HCC) documented in this encounter [facility] note* 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 Long-term (current) use of anticoagulants Paroxysmal atrial fibrillation (HCC) Atrial fibrillation [facility]* Diagnosis Essential hypertension, benign- Primary Paroxysmal atrial fibrillation (HCC) Atrial fibrillation Atherosclerosis of coronary artery without angina pectoris, unspecified vessel or lesion type, unspecified whether [place] or transplanted heart Hyperlipidemia, unspecified hyperlipidemia type History of stroke with 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 Speech disturbance, unspecified type documented in this encounter [facility] note* Diagnosis Abnormal CBC- Primary Other abnormal blood chemistry documented in this encounter [facility] note* 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 Long-term (current) use of anticoagulants Paroxysmal atrial fibrillation (HCC) Atrial fibrillation documented in this encounter [facility] note* 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 Long-term (current) use of anticoagulants Paroxysmal atrial fibrillation (HCC) Atrial fibrillation documented in this encounter [facility] note* Diagnosis alf current use of anticoagulant- Primary Long-term (current) use of anticoagulants Paroxysmal atrial fibrillation (HCC) Atrial fibrillation [facility]* 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 Long-term (current) use of anticoagulants Paroxysmal atrial fibrillation (HCC) Atrial fibrillation documented in this encounter [facility] note* Diagnosis 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, psychotic disturbance, mood disturbance, or anxiety (HCC)- Primary Essential hypertension, benign Paroxysmal atrial fibrillation (HCC) Atrial fibrillation [facility]* Diagnosis Edema of both lower legs- Primary [facility]* 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 Long-term (current) use of anticoagulants Paroxysmal atrial fibrillation (HCC) Atrial fibrillation [facility]* Diagnosis 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 Long-term (current) use of anticoagulants Paroxysmal atrial fibrillation (HCC) Atrial fibrillation [facility]* Diagnosis Essential hypertension, benign- Primary Hyperlipidemia, unspecified hyperlipidemia type Edema of both lower legs Paroxysmal atrial fibrillation (HCC) Atrial fibrillation History of stroke with 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, psychotic disturbance, mood disturbance, or anxiety (HCC) Urinary frequency Abnormal CBC Other abnormal blood chemistry [facility]* 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 Long-term (current) use of anticoagulants Paroxysmal atrial fibrillation (HCC) Atrial fibrillation [facility]* 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 Long-term (current) use of anticoagulants Paroxysmal atrial fibrillation (HCC) Atrial fibrillation [facility]* Diagnosis Left hip pain Pain in joint, pelvic region and thigh [facility]* Diagnosis alf current use of anticoagulant- Primary Long-term (current) use of anticoagulants Paroxysmal atrial fibrillation (HCC) Atrial fibrillation [facility]* Diagnosis Acute right-sided low back pain, unspecified whether sciatica present [facility]* Diagnosis Paroxysmal atrial fibrillation (HCC)- Primary Atrial fibrillation [facility]* 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 Long-term (current) use of anticoagulants Paroxysmal atrial fibrillation (HCC) Atrial fibrillation [facility]* Diagnosis alf current use of anticoagulant- Primary Long-term (current) use of anticoagulants Paroxysmal atrial fibrillation (HCC) Atrial fibrillation [facility]* Diagnosis Dementia, unspecified dementia severity, unspecified dementia type, unspecified whether behavioral, psychotic, or mood disturbance or anxiety (HCC)- Primary [facility]* Diagnosis alf current use of anticoagulant- Primary Long-term (current) use of anticoagulants Paroxysmal atrial fibrillation (HCC) Atrial fibrillation [facility]* Diagnosis Dementia, unspecified dementia [...] and musculoskeletal systems documented in this encounter [facility] note* Diagnosis Cognitive impairment, mild, so stated Mild cognitive impairment, so stated documented in this encounter [facility] note* Diagnosis Essential hypertension, benign- Primary Hyperlipidemia, unspecified hyperlipidemia type Atherosclerosis of coronary artery without angina pectoris, unspecified vessel or lesion type, unspecified whether [place] or transplanted heart Paroxysmal atrial fibrillation (HCC) Atrial fibrillation Edema of both lower legs History of stroke with 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 Dementia, unspecified dementia severity, unspecified dementia type, unspecified whether behavioral, psychotic, or mood disturbance or anxiety (HCC) documented in this encounter [facility] note* 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) Paralysis agitans documented in this encounter [facility] note* Diagnosis Bursitis of right elbow, unspecified bursa- Primary documented in this encounter [facility] note* Diagnosis Moderate dementia without behavioral disturbance, psychotic disturbance, mood disturbance, or anxiety, unspecified dementia type (HCC)- Primary Hallucinations Screening for depression Encounter for screening examination for other mental health and behavioral disorders documented in this encounter [facility] for referral (narrative)* Diagnostic Procedure Only (Routine) - Authorized Specialty Diagnoses / Procedures Referred By Jennifer gomez Referred To Contact US IMAGING Diagnoses Thyroid nodule Procedures US THYROID/PARATHYROID US SOFT TISSUE HEAD & NECK REAL TIME IMGE DOCM Stas Mora MD [address] [place] [address] [facility] Referral ID Status Reason Start Date Expiration Date Visits Requested Visits Authorized [id number] Authorized Auto-Generat ed Referral 12/26/2021 01/25/2023 1 1 [facility] for referral (narrative)* Diagnostic Procedure Only (Urgent) - Closed Specialty Diagnoses / Procedures Referred By Contac t Referred To Contact XR IMAGING Diagnoses Left hip pain Procedures XR HIP GENERAL 3V PELV/AP/LAT LEFT RADEX HIP UNILATERAL WITH PELVIS 2-3 VIEWS Jenna Fitzpatrick APRN.[employer] [address] [place] [address] [place] [address] Referral ID Status Reason Start Date Expiration Date V isits Requested Visits Authorized [id number] Closed Auto-Generate d Referral 05/21/2022 06/20/2023 1 1 [facility] for referral (narrative)No reason for referral information availableWRegency [facility] Work Phone: [facility] N[facility]* Diagnostic Procedure Only (Urgent) - Closed Specialty Diagnoses / Procedures Referred By Contac t Referred To Contact XR IMAGING Diagnoses Left hip pain Procedures XR HIP GENERAL 3V PELV/AP/LAT LEFT RADEX HIP UNILATERAL WITH PELVIS 2-3 VIEWS Jenna Fitzpatrick, JETHRO.[employer] [address] [place] [address] [place] [address] Referral ID Status Reason Start Date Expiration Date V isits Requested Visits Authorized [id number] Closed Auto-Generate d Referral 05/21/2022 06/20/2023 1 1 [facility] for visit Narrative* MRI/CT (Routine) - Closed Specialty Diagnoses / Procedures Referred By Contac t Referred To Contact MR IMAGING Diagnoses Cognitive impairment, mild, so stated Procedures MRI BRAIN W QUANT WO IVCON MRI BRAIN BRAIN STEM W/O CONTRAST MATERIAL Luciana Cisneros MD [address] [place] [address] Phone: tel: fax: [place] [address] Referral ID Status Reason Start Date Expiration Date V isits Requested Visits Authorized [id number] Closed Auto-Generate d Referral 05/11/2024 07/10/2024 1 1 [facility] Purpose Family History No Family History [...] Will Yes December 21 6:17pm [employer] Yes December 21 6:17pm Name of Medical Power of [employer] IRAJ HULL , DAUGHTER December 21, 2021 6:17pm Advance Directive Response Recorded Date/ Time Name of Medical Power of [employer] Anabella Hull December 21, 2021 8:06pm Living Will Yes December 21 8:06pm Power [employer] Yes December 21 8:06pm Advance Directive Response Recorded Date/ Time Living Will Yes February 10, 023 3:17pm Power of [employer] Yes February 10, 2023 3:17pm Name of Medical Power of [employer] daughter-yomi hull February 10, 2023 3:17pm Advance Directive Response Recorded Date/ Time Do you have a Healthcare Power of [employer]? Yes September 01, 2024 7:36am Name of Medical Power of [employer] anabella hull September 01, 2024 7:36am Advance Directive Response Recorded Date/ Time Do you have a Healthcare Power of [employer]? Yes September 01, 2024 12:00pm Name of Medical Power of [employer] anabella hull September 01, 2024 12:00pm [...] November 23 5:00am ADMISSION H&P EXAM BY TRAINING PROGRAM MANAGER November 24, 2024 3:34pm LABWORK November 25, [...] CONSULT TO PHYSICAL THERAPY PHYSICAL THERAPY EVALUATION [facility] 45 MINS Luciana Cisneros MD [address] [place] [address] [facility] [place] [address] [place] [address] Referral ID Status Reason Start Date Expiration Date Visits Requested Visits Authorized [id number] Pending Review Auto-Generat ed Referral 04/27/2024 04/27/2025 1 1 Specialty Diagnoses / Procedures Referred By Contac t Referred To Contact MR IMAGING Diagnoses Cognitive impairment, mild, so stated Procedures MRI BRAIN W QUANT WO IVCON MRI BRAIN BRAIN STEM W/O CONTRAST MATERIAL Luciana Cisneros MD [address] [place] [id number] [id number] Referral ID Status Reason Start Date Expiration Date Visits Requested Visits Authorized [id number] Pending Review Auto-Generat ed Referral 04/27/2024 05/27/2025 1 1 Specialty Diagnoses / Procedures Referred By Contac t Referred To Contact Gerontology Diagnoses Dementia, unspecified dementia severity, unspecified dementia type, unspecified whether behavioral, psychotic, or mood disturbance or anxiety (HCC) Procedures CONSULT TO GERIATRICS OFFICE/OUTPATIENT [facility] 60 MINUTES Stas Mora MD [address] [place] [id number] Referral ID Status Reason Start Date Expiration Date Visits Requested Visits Authorized [id number] Authorized PCP Requested Referral 04/25/2024 04/25/2025 1 1 Specialty Diagnoses / Procedures Referred By Contac t Referred To Contact MR IMAGING Diagnoses Cerebral infarction, unspecified mechanism (HCC) Procedures MRI BRAIN WO IVCON MRI BRAIN BRAIN STEM W/O CONTRAST MATERIAL Stas Mora MD [address] [place] [id number] [id number] Referral ID Status Reason Start Date Expiration Date Visits Requested Visits Authorized [id number] Pending Review Auto-Genera eli Referral Patient Cleared [...] section and content) DATE CREATED AUTHOR 09/11/2017 [facility] DATE CREATED AUTHOR AUTHOR'S ORGANIZ ATION 09/11/[facility] DATE CREATED AUTHOR AUTHOR'S ORGANIZ ATION 09/15/2017 [facility] DATE CREATED AUTHOR AUTHOR'S ORGANIZ ATION 08/12/2023 [facility] ([place]) DATE CREATED AUTHOR AUTHOR'S ORGANIZ ATION 05/24/2024 [facility] DATE CREATED AUTHOR AUTHOR'S ORGANIZ ATION 02/02/2025 [facility] DATE CREATED AUTHOR AUTHOR'S ORGANIZ ATION 02/02/2025 [facility] Source Comments (unrecognize d section and content) In the event this informatio n is protected by the Federal Confidentiality of Alcohol and Drug Abuse Patient Records regulations: The Federal rules restrict any use of the information to criminally investigate or prosecute any alcohol or drug abuse patient.[facility] the event this information is protected by the Federal Confidentiality of Alcohol and Drug Abuse Patient Records regulations: The Federal rules restrict any use of the information to criminally investigate or prosecute any alcohol or drug abuse patient.[facility] HealthIn the event this information is protected by the Federal Confidentiality of Alcohol and Drug Abuse Patient Records regulations: The Federal rules restrict any use of the information to criminally investigate or prosecute any alcohol or drug abuse patient.[facility] HealthIn the event this information is protected by the Federal Confidentiality of Alcohol and Drug Abuse Patient Records regulations: The Federal rules restrict any use of the information to criminally investigate or prosecute any alcohol or drug abuse patient.[facility] HealthIn the event this information is protected by the Federal Confidentiality of Alcohol and Drug Abuse Patient Records regulations: The Federal rules restrict any use of the information to criminally investigate or prosecute any alcohol or drug abuse patient.[facility]In the event this information is protected by the Federal Confidentiality of Alcohol and Drug Abuse Patient Records regulations: The Federal rules restrict any use of the information to criminally investigate or prosecute any alcohol or drug abuse patient.[facility] HealthIn the event this information is protected by the Federal Confidentiality of Alcohol and Drug Abuse Patient Records regulations: The Federal rules restrict any use of the information to criminally investigate or prosecute any alcohol or drug abuse patient.[facility]In the event this information is protected by the Federal Confidentiality of Alcohol and Drug Abuse Patient Records regulations: The Federal rules restrict any use of the information to criminally investigate or prosecute any alcohol or drug abuse patient.[facility] HealthIn the event this information is protected by the Federal Confidentiality of Alcohol and Drug Abuse Patient Records regulations: The Federal rules restrict any use of the information to criminally investigate or prosecute any alcohol or drug abuse patient.[facility] HealthIn the event this information is protected by the Federal Confidentiality of Alcohol and Drug Abuse Patient Records regulations: The Federal rules restrict any use of the information to criminally investigate or prosecute any alcohol or drug abuse patient.[facility] HealthIn the event this information is protected by the Federal Confidentiality of Alcohol and Drug Abuse Patient Records regulations: The Federal rules restrict any use of the information to criminally investigate or prosecute any alcohol or drug abuse patient.[facility] HealthIn the event this information is protected by the Federal Confidentiality of Alcohol and Drug Abuse Patient Records regulations: The Federal rules restrict any use of the information to criminally investigate or prosecute any alcohol or drug abuse patient.[facility] HealthIn the event this information is protected by the Federal Confidentiality of Alcohol and Drug Abuse Patient Records regulations: The Federal rules restrict any use of the information to criminally investigate or prosecute any alcohol or drug abuse patient.[facility] HealthIn the event this information is protected by the Federal Confidentiality of Alcohol and Drug Abuse Patient Records regulations: The Federal rules restrict any use of the information to criminally investigate or prosecute any alcohol or drug abuse patient.[facility] HealthIn the event this information is protected by the Federal Confidentiality of Alcohol and Drug Abuse Patient Records regulations: The Federal rules restrict any use of the information to criminally investigate or prosecute any alcohol or drug abuse patient.[facility] HealthIn the event this information is protected by the Federal Confidentiality of Alcohol and Drug Abuse Patient Records regulations: The Federal rules restrict any use of the information to criminally investigate or prosecute any alcohol or drug abuse patient.[facility] HealthIn the event this information is protected by the Federal Confidentiality of Alcohol and Drug Abuse Patient Records regulations: The Federal rules restrict any use of the information to criminally investigate or prosecute any alcohol or drug abuse patient.[facility] HealthIn the event this information is protected by the Federal Confidentiality of Alcohol and Drug Abuse Patient Records regulations: The Federal rules restrict any use of the information to criminally investigate or prosecute any alcohol or drug abuse patient.[facility] HealthIn the event this information is protected by the Federal Confidentiality of Alcohol and Drug Abuse Patient Records regulations: The Federal rules restrict any use of the information to criminally investigate or prosecute any alcohol or drug abuse patient.[facility] HealthIn the event this information is protected by the Federal Confidentiality of Alcohol and Drug Abuse Patient Records regulations: The Federal rules restrict any use of the information to criminally investigate or prosecute any alcohol or drug abuse patient.[facility] HealthIn the event this information is protected by the Federal Confidentiality of Alcohol and Drug Abuse Patient Records regulations: The Federal rules restrict any use of the information to criminally investigate or prosecute any alcohol or drug abuse patient.[facility] HealthIn the event this information is protected by the Federal Confidentiality of Alcohol and Drug Abuse Patient Records regulations: The Federal rules restrict any use of the information to criminally investigate or prosecute any alcohol or drug abuse patient.[facility] HealthIn the event this information is protected by the Federal Confidentiality of Alcohol and Drug Abuse Patient Records regulations: The Federal rules restrict any use of the information to criminally investigate or prosecute any alcohol or drug abuse patient.[facility] HealthIn the event this information is protected by the Federal Confidentiality of Alcohol and Drug Abuse Patient Records regulations: The Federal rules restrict any use of the information to criminally investigate or prosecute any alcohol or drug abuse patient.[facility] HealthIn the event this information is protected by the Federal Confidentiality of Alcohol and Drug Abuse Patient Records regulations: The Federal rules restrict any use of the information to criminally investigate or prosecute any alcohol or drug abuse patient.[facility] HealthIn the event this information is protected by the Federal Confidentiality of Alcohol and Drug Abuse Patient Records regulations: The Federal rules restrict any use of the information to criminally investigate or prosecute any alcohol or drug abuse patient.[facility]In the event this information is protected by the Federal Confidentiality of Alcohol and Drug Abuse Patient Records regulations: The Federal rules restrict any use of the information to criminally investigate or prosecute any alcohol or drug abuse patient.[facility]In the event this information is protected by the Federal Confidentiality of Alcohol and Drug Abuse Patient Records regulations: The Federal rules restrict any use of the information to criminally investigate or prosecute any alcohol or drug abuse patient.[facility]In the event this information is protected by the Federal Confidentiality of Alcohol and Drug Abuse Patient Records regulations: The Federal rules restrict any use of the information to criminally investigate or prosecute any alcohol or drug abuse patient.[facility]In the event this information is protected by the Federal Confidentiality of Alcohol and Drug Abuse Patient Records regulations: The Federal rules restrict any use of the information to criminally investigate or prosecute any alcohol or drug abuse patient.[facility]In the event this information is protected by the Federal Confidentiality of Alcohol and Drug Abuse Patient Records regulations: The Federal rules restrict any use of the information to criminally investigate or prosecute any alcohol or drug abuse patient.[facility]In the event this information is protected by the Federal Confidentiality of Alcohol and Drug Abuse Patient Records regulations: The Federal rules restrict any use of the information to criminally investigate or prosecute any alcohol or drug abuse patient.[facility]In the event this information is protected by the Federal Confidentiality of Alcohol and Drug Abuse Patient Records regulations: The Federal rules restrict any use of the information to criminally investigate or prosecute any alcohol or drug abuse patient.[facility]In the event this information is protected by the Federal Confidentiality of Alcohol and Drug Abuse Patient Records regulations: The Federal rules restrict any use of the information to criminally investigate or prosecute any alcohol or drug abuse patient.[facility]In the event this information is protected by the Federal Confidentiality of Alcohol and Drug Abuse Patient Records regulations: The Federal rules restrict any use of the information to criminally investigate or prosecute any alcohol or drug abuse patient.[facility]In the event this information is protected by the Federal Confidentiality of Alcohol and Drug Abuse Patient Records regulations: The Federal rules restrict any use of the information to criminally investigate or prosecute any alcohol or drug abuse patient.[facility]In the event this information is protected by the Federal Confidentiality of Alcohol and Drug Abuse Patient Records regulations: The Federal rules restrict any use of the information to criminally investigate or prosecute any alcohol or drug abuse patient.[facility]In the event this information is protected by the Federal Confidentiality of Alcohol and Drug Abuse Patient Records regulations: The Federal rules restrict any use of the information to criminally investigate or prosecute any alcohol or drug abuse patient.[facility]In the event this information is protected by the Federal Confidentiality of Alcohol and Drug Abuse Patient Records regulations: The Federal rules restrict any use of the information to criminally investigate or prosecute any alcohol or drug abuse patient.[facility]In the event this information is protected by the Federal Confidentiality of Alcohol and Drug Abuse Patient Records regulations: The Federal rules restrict any use of the information to criminally investigate or prosecute any alcohol or drug abuse patient.[facility]In the event this information is protected by the Federal Confidentiality of Alcohol and Drug Abuse Patient Records regulations: The Federal rules restrict any use of the information to criminally investigate or prosecute any alcohol or drug abuse patient.[facility]In the event this information is protected by the Federal Confidentiality of Alcohol and Drug Abuse Patient Records regulations: The Federal rules restrict any use of the information to criminally investigate or prosecute any alcohol or drug abuse patient.[facility]In the event this information is protected by the Federal Confidentiality of Alcohol and Drug Abuse Patient Records regulations: The Federal rules restrict any use of the information to criminally investigate or prosecute any alcohol or drug abuse patient.[facility]In the event this information is protected by the Federal Confidentiality of Alcohol and Drug Abuse Patient Records regulations: The Federal rules restrict any use of the information to criminally investigate or prosecute any alcohol or drug abuse patient.[facility]In the event this information is protected by the Federal Confidentiality of Alcohol and Drug Abuse Patient Records regulations: The Federal rules restrict any use of the information to criminally investigate or prosecute any alcohol or drug abuse patient.[facility]In the event this information is protected by the Federal Confidentiality of Alcohol and Drug Abuse Patient Records regulations: The Federal rules restrict any use of the information to criminally investigate or prosecute any alcohol or drug abuse patient.[facility]In the event this information is protected by the Federal Confidentiality of Alcohol and Drug Abuse Patient Records regulations: The Federal rules restrict any use of the information to criminally investigate or prosecute any alcohol or drug abuse patient.[facility]In the event this information is protected by the Federal Confidentiality of Alcohol and Drug Abuse Patient Records regulations: The Federal rules restrict any use of the information to criminally investigate or prosecute any alcohol or drug abuse patient.[facility]In the event this information is protected by the Federal Confidentiality of Alcohol and Drug Abuse Patient Records regulations: The Federal rules restrict any use of the information to criminally investigate or prosecute any alcohol or drug abuse patient.[facility]In the event this information is protected by the Federal Confidentiality of Alcohol and Drug Abuse Patient Records regulations: The Federal rules restrict any use of the information to criminally investigate or prosecute any alcohol or drug abuse patient.[facility]In the event this information is protected by the Federal Confidentiality of Alcohol and Drug Abuse Patient Records regulations: The Federal rules restrict any use of the information to criminally investigate or prosecute any alcohol or drug abuse patient.[facility]In the event this information is protected by the Federal Confidentiality of Alcohol and Drug Abuse Patient Records regulations: The Federal rules restrict any use of the information to criminally investigate or prosecute any alcohol or drug abuse patient.[facility]In the event this information is protected by the Federal Confidentiality of Alcohol and Drug Abuse Patient Records regulations: The Federal rules restrict any use of the information to criminally investigate or prosecute any alcohol or drug abuse patient.[facility]In the event this information is protected by the Federal Confidentiality of Alcohol and Drug Abuse Patient Records regulations: The Federal rules restrict any use of the information to criminally investigate or prosecute any alcohol or drug abuse patient.[facility]In the event this information is protected by the Federal Confidentiality of Alcohol and Drug Abuse Patient Records regulations: The Federal rules restrict any use of the information to criminally investigate or prosecute any alcohol or drug abuse patient.[facility]In the event this information is protected by the Federal Confidentiality of Alcohol and Drug Abuse Patient Records regulations: The Federal rules restrict any use of the information to criminally investigate or prosecute any alcohol or drug abuse patient.[facility]In the event this information is protected by the Federal Confidentiality of Alcohol and Drug Abuse Patient Records regulations: The Federal rules restrict any use of the information to criminally investigate or prosecute any alcohol or drug abuse patient.[facility]In the event this information is protected by the Federal Confidentiality of Alcohol and Drug Abuse Patient Records regulations: The Federal rules restrict any use of the information to criminally investigate or prosecute any alcohol or drug abuse patient.[facility]In the event this information is protected by the Federal Confidentiality of Alcohol and Drug Abuse Patient Records regulations: The Federal rules restrict any use of the information to criminally investigate or prosecute any alcohol or drug abuse patient.[facility]In the event this information is protected by the Federal Confidentiality of Alcohol and Drug Abuse Patient Records regulations: The Federal rules restrict any use of the information to criminally investigate or prosecute any alcohol or drug abuse patient.[facility]In the event this information is protected by the Federal Confidentiality of Alcohol and Drug Abuse Patient Records regulations: The Federal rules restrict any use of the information to criminally investigate or prosecute any alcohol or drug abuse patient.[facility]In the event this information is protected by the Federal Confidentiality of Alcohol and Drug Abuse Patient Records regulations: The Federal rules restrict any use of the information to criminally investigate or prosecute any alcohol or drug abuse patient.[facility]In the event this information is protected by the Federal Confidentiality of Alcohol and Drug Abuse Patient Records regulations: The Federal rules restrict any use of the information to criminally investigate or prosecute any alcohol or drug abuse patient.[facility]In the event this information is protected by the Federal Confidentiality of Alcohol and Drug Abuse Patient Records regulations: The Federal rules restrict any use of the information to criminally investigate or prosecute any alcohol or drug abuse patient.[facility]In the event this information is protected by the Federal Confidentiality of Alcohol and Drug Abuse Patient Records regulations: The Federal rules restrict any use of the information to criminally investigate or prosecute any alcohol or drug abuse patient.[facility]In the event this information is protected by the Federal Confidentiality of Alcohol and Drug Abuse Patient Records regulations: The Federal rules restrict any use of the information to criminally investigate or prosecute any alcohol or drug abuse patient.[facility]In the event this information is protected by the Federal Confidentiality of Alcohol and Drug Abuse Patient Records regulations: The Federal rules restrict any use of the information to criminally investigate or prosecute any alcohol or drug abuse patient.[facility]In the event this information is protected by the Federal Confidentiality of Alcohol and Drug Abuse Patient Records regulations: The Federal rules restrict any use of the information to criminally investigate or prosecute any alcohol or drug abuse patient.[facility]In the event this information is protected by the Federal Confidentiality of Alcohol and Drug Abuse Patient Records regulations: The Federal rules restrict any use of the information to criminally investigate or prosecute any alcohol or drug abuse patient.[facility]In the event this information is protected by the Federal Confidentiality of Alcohol and Drug Abuse Patient Records regulations: The Federal rules restrict any use of the information to criminally investigate or prosecute any alcohol or drug abuse patient.[facility]In the event this information is protected by the Federal Confidentiality of Alcohol and Drug Abuse Patient Records regulations: The Federal rules restrict any use of the information to criminally investigate or prosecute any alcohol or drug abuse patient.[facility]In the event this information is protected by the Federal Confidentiality of Alcohol and Drug Abuse Patient Records regulations: The Federal rules restrict any use of the information to criminally investigate or prosecute any alcohol or drug abuse patient.[facility]In the event this information is protected by the Federal Confidentiality of Alcohol and Drug Abuse Patient Records regulations: The Federal rules restrict any use of the information to criminally investigate or prosecute any alcohol or drug abuse patient.[facility]In the event this information is protected by the Federal Confidentiality of Alcohol and Drug Abuse Patient Records regulations: The Federal rules restrict any use of the information to criminally investigate or prosecute any alcohol or drug abuse patient.[facility]In the event this information is protected by the Federal Confidentiality of Alcohol and Drug Abuse Patient Records regulations: The Federal rules restrict any use of the information to criminally investigate or prosecute any alcohol or drug abuse patient.[facility]In the event this information is protected by the Federal Confidentiality of Alcohol and Drug Abuse Patient Records regulations: The Federal rules restrict any use of the information to criminally investigate or prosecute any alcohol or drug abuse patient.[facility]In the event this information is protected by the Federal Confidentiality of Alcohol and Drug Abuse Patient Records regulations: The Federal rules restrict any use of the information to criminally investigate or prosecute any alcohol or drug abuse patient.[facility]In the event this information is protected by the Federal Confidentiality of Alcohol and Drug Abuse Patient Records regulations: The Federal rules restrict any use of the information to criminally investigate or prosecute any alcohol or drug abuse patient.[facility]In the event this information is protected by the Federal Confidentiality of Alcohol and Drug Abuse Patient Records regulations: The Federal rules restrict any use of the information to criminally investigate or prosecute any alcohol or drug abuse patient.[facility]In the event this information is protected by the Federal Confidentiality of Alcohol and Drug Abuse Patient Records regulations: The Federal rules restrict any use of the information to criminally investigate or prosecute any alcohol or drug abuse patient.[facility]In the event this information is protected by the Federal Confidentiality of Alcohol and Drug Abuse Patient Records regulations: The Federal rules restrict any use of the information to criminally investigate or prosecute any alcohol or drug abuse patient.[facility]In the event this information is protected by the Federal Confidentiality of Alcohol and Drug Abuse Patient Records regulations: The Federal rules restrict any use of the information to criminally investigate or prosecute any alcohol or drug abuse patient.[facility]In the event this information is protected by the Federal Confidentiality of Alcohol and Drug Abuse Patient Records regulations: The Federal rules restrict any use of the information to criminally investigate or prosecute any alcohol or drug abuse patient.[facility]In the event this information is protected by the Federal Confidentiality of Alcohol and Drug Abuse Patient Records regulations: The Federal rules restrict any use of the information to criminally investigate or prosecute any alcohol or drug abuse patient.[facility]In the event this information is protected by the Federal Confidentiality of Alcohol and Drug Abuse Patient Records regulations: The Federal rules restrict any use of the information to criminally investigate or prosecute any alcohol or drug abuse patient.[facility]In the event this information is protected by the Federal Confidentiality of Alcohol and Drug Abuse Patient Records regulations: The Federal rules restrict any use of the information to criminally investigate or prosecute any alcohol or drug abuse patient.[facility]In the event this information is protected by the Federal Confidentiality of Alcohol and Drug Abuse Patient Records regulations: The Federal rules restrict any use of the information to criminally investigate or prosecute any alcohol or drug abuse patient.[facility]In the event this information is protected by the Federal Confidentiality of Alcohol and Drug Abuse Patient Records regulations: The Federal rules restrict any use of the information to criminally investigate or prosecute any alcohol or drug abuse patient.[facility]In the event this information is protected by the Federal Confidentiality of Alcohol and Drug Abuse Patient Records regulations: The Federal rules restrict any use of the information to criminally investigate or prosecute any alcohol or drug abuse patient.[facility]In the event this information is protected by the Federal Confidentiality of Alcohol and Drug Abuse Patient Records regulations: The Federal rules restrict any use of the information to criminally investigate or prosecute any alcohol or drug abuse patient.[facility]In the event this information is protected by the Federal Confidentiality of Alcohol and Drug Abuse Patient Records regulations: The Federal rules restrict any use of the information to criminally investigate or prosecute any alcohol or drug abuse patient.[facility]In the event this information is protected by the Federal Confidentiality of Alcohol and Drug Abuse Patient Records regulations: The Federal rules restrict any use of the information to criminally investigate or prosecute any alcohol or drug abuse patient.[facility]In the event this information is protected by the Federal Confidentiality of Alcohol and Drug Abuse Patient Records regulations: The Federal rules restrict any use of the information to criminally investigate or prosecute any alcohol or drug abuse patient.[facility]In the event this information is protected by the Federal Confidentiality of Alcohol and Drug Abuse Patient Records regulations: The Federal rules restrict any use of the information to criminally investigate or prosecute any alcohol or drug abuse patient.[facility]In the event this information is protected by the Federal Confidentiality of Alcohol and Drug Abuse Patient Records regulations: The Federal rules restrict any use of the information to criminally investigate or prosecute any alcohol or drug abuse patient.[facility]In the event this information is protected by the Federal Confidentiality of Alcohol and Drug Abuse Patient Records regulations: The Federal rules restrict any use of the information to criminally investigate or prosecute any alcohol or drug abuse patient.[facility]In the event this information is protected by the Federal Confidentiality of Alcohol and Drug Abuse Patient Records regulations: The Federal rules restrict any use of the information to criminally investigate or prosecute any alcohol or drug abuse patient.[facility]In the event this information is protected by the Federal Confidentiality of Alcohol and Drug Abuse Patient Records regulations: The Federal rules restrict any use of the information to criminally investigate or prosecute any alcohol or drug abuse patient.[facility]In the event this information is protected by the Federal Confidentiality of Alcohol and Drug Abuse Patient Records regulations: The Federal rules restrict any use of the information to criminally investigate or prosecute any alcohol or drug abuse patient.[facility]In the event this information is protected by the Federal Confidentiality of Alcohol and Drug Abuse Patient Records regulations: The Federal rules restrict any use of the information to criminally investigate or prosecute any alcohol or drug abuse patient.[facility]In the event this information is protected by the Federal Confidentiality of Alcohol and Drug Abuse Patient Records regulations: The Federal rules restrict any use of the information to criminally investigate or prosecute any alcohol or drug abuse patient.[facility]In the event this information is protected by the Federal Confidentiality of Alcohol and Drug Abuse Patient Records regulations: The Federal rules restrict any use of the information to criminally investigate or prosecute any alcohol or drug abuse patient.[facility]In the event this information is protected by the Federal Confidentiality of Alcohol and Drug Abuse Patient Records regulations: The Federal rules restrict any use of the information to criminally investigate or prosecute any alcohol or drug abuse patient.[facility]In the event this information is protected by the Federal Confidentiality of Alcohol and Drug Abuse Patient Records regulations: The Federal rules restrict any use of the information to criminally investigate or prosecute any alcohol or drug abuse patient.[facility]In the event this information is protected by the Federal Confidentiality of Alcohol and Drug Abuse Patient Records regulations: The Federal rules restrict any use of the information to criminally investigate or prosecute any alcohol or drug abuse patient.[facility]In the event this information is protected by the Federal Confidentiality of Alcohol and Drug Abuse Patient Records regulations: The Federal rules restrict any use of the information to criminally investigate or prosecute any alcohol or drug abuse patient.[facility]In the event this information is protected by the Federal Confidentiality of Alcohol and Drug Abuse Patient Records regulations: The Federal rules restrict any use of the information to criminally investigate or prosecute any alcohol or drug abuse patient.[facility]In the event this information is protected by the Federal Confidentiality of Alcohol and Drug Abuse Patient Records regulations: The Federal rules restrict any use of the information to criminally investigate or prosecute any alcohol or drug abuse patient.[facility]In the event this information is protected by the Federal Confidentiality of Alcohol and Drug Abuse Patient Records regulations: The Federal rules restrict any use of the information to criminally investigate or prosecute any alcohol or drug abuse patient.[facility]In the event this information is protected by the Federal Confidentiality of Alcohol and Drug Abuse Patient Records regulations: The Federal rules restrict any use of the information to criminally investigate or prosecute any alcohol or drug abuse patient.[facility]In the event this information is protected by the Federal Confidentiality of Alcohol and Drug Abuse Patient Records regulations: The Federal rules restrict any use of the information to criminally investigate or prosecute any alcohol or drug abuse patient.[facility]In the event this information is protected by the Federal Confidentiality of Alcohol and Drug Abuse Patient Records regulations: The Federal rules restrict any use of the information to criminally investigate or prosecute any alcohol or drug abuse patient.[facility]In the event this information is protected by the Federal Confidentiality of Alcohol and Drug Abuse Patient Records regulations: The Federal rules restrict any use of the information to criminally investigate or prosecute any alcohol or drug abuse patient.[facility]In the event this information is protected by the Federal Confidentiality of Alcohol and Drug Abuse Patient Records regulations: The Federal rules restrict any use of the information to criminally investigate or prosecute any alcohol or drug abuse patient.[facility]In the event this information is protected by the Federal Confidentiality of Alcohol and Drug Abuse Patient Records regulations: The Federal rules restrict any use of the information to criminally investigate or prosecute any alcohol or drug abuse patient.[facility] HealthIn the event this information is protected by the Federal Confidentiality of Alcohol and Drug Abuse Patient Records regulations: The Federal rules restrict any use of the information to criminally investigate or prosecute any alcohol or drug abuse patient.[facility] HealthIn the event this information is protected by the Federal Confidentiality of Alcohol and Drug Abuse Patient Records regulations: The Federal rules restrict any use of the information to criminally investigate or prosecute any alcohol or drug abuse patient.[facility] HealthIn the event this information is protected by the Federal Confidentiality of Alcohol and Drug Abuse Patient Records regulations: The Federal rules restrict any use of the information to criminally investigate or prosecute any alcohol or drug abuse patient.[facility] HealthIn the event this information is protected by the Federal Confidentiality of Alcohol and Drug Abuse Patient Records regulations: The Federal rules restrict any use of the information to criminally investigate or prosecute any alcohol or drug abuse patient.[facility] HealthIn the event this information is protected by the Federal Confidentiality of Alcohol and Drug Abuse Patient Records regulations: The Federal rules restrict any use of the information to criminally investigate or prosecute any alcohol or drug abuse patient.[facility] HealthIn the event this information is protected by the Federal Confidentiality of Alcohol and Drug Abuse Patient Records regulations: The Federal rules restrict any use of the information to criminally investigate or prosecute any alcohol or drug abuse patient.[facility] HealthIn the event this information is protected by the Federal Confidentiality of Alcohol and Drug Abuse Patient Records regulations: The Federal rules restrict any use of the information to criminally investigate or prosecute any alcohol or drug abuse patient.[facility] HealthIn the event this information is protected by the Federal Confidentiality of Alcohol and Drug Abuse Patient Records regulations: The Federal rules restrict any use of the information to criminally investigate or prosecute any alcohol or drug abuse patient.[facility] HealthIn the event this information is protected by the Federal Confidentiality of Alcohol and Drug Abuse Patient Records regulations: The Federal rules restrict any use of the information to criminally investigate or prosecute any alcohol or drug abuse patient.[facility] HealthIn the event this information is protected by the Federal Confidentiality of Alcohol and Drug Abuse Patient Records regulations: The Federal rules restrict any use of the information to criminally investigate or prosecute any alcohol or drug abuse patient.[facility] HealthIn the event this information is protected by the Federal Confidentiality of Alcohol and Drug Abuse Patient Records regulations: The Federal rules restrict any use of the information to criminally investigate or prosecute any alcohol or drug abuse patient.[facility] HealthIn the event this information is protected by the Federal Confidentiality of Alcohol and Drug Abuse Patient Records regulations: The Federal rules restrict any use of the information to criminally investigate or prosecute any alcohol or drug abuse patient.[facility] HealthIn the event this information is protected by the Federal Confidentiality of Alcohol and Drug Abuse Patient Records regulations: The Federal rules restrict any use of the information to criminally investigate or prosecute any alcohol or drug abuse patient.[facility] HealthIn the event this information is protected by the Federal Confidentiality of Alcohol and Drug Abuse Patient Records regulations: The Federal rules restrict any use of the information to criminally investigate or prosecute any alcohol or drug abuse patient.[facility] HealthIn the event this information is protected by the Federal Confidentiality of Alcohol and Drug Abuse Patient Records regulations: The Federal rules restrict any use of the information to criminally investigate or prosecute any alcohol or drug abuse patient.[facility] HealthIn the event this information is protected by the Federal Confidentiality of Alcohol and Drug Abuse Patient Records regulations: The Federal rules restrict any use of the information to criminally investigate or prosecute any alcohol or drug abuse patient.[facility] HealthIn the event this information is protected by the Federal Confidentiality of Alcohol and Drug Abuse Patient Records regulations: The Federal rules restrict any use of the information to criminally investigate or prosecute any alcohol or drug abuse patient.[facility] HealthIn the event this information is protected by the Federal Confidentiality of Alcohol and Drug Abuse Patient Records regulations: The Federal rules restrict any use of the information to criminally investigate or prosecute any alcohol or drug abuse patient.[facility] HealthIn the event this information is protected by the Federal Confidentiality of Alcohol and Drug Abuse Patient Records regulations: The Federal rules restrict any use of the information to criminally investigate or prosecute any alcohol or drug abuse patient.[facility] Reason for Visit (unrecogniz ed section and [...] STEM W/O CONTRAST MATERIAL Stas Mora MD [address] [place] [address] [place] [address] Referral ID Status Reason Start Date Expiration Date V isits Requested Visits Authorized [id number] Closed Auto-Generat ed Referral Patient Cleared - [...] anxiety (HCC) Procedures CONSULT TO GERIATRICS OFFICE/OUTPATIENT [facility] 60 MINUTES Stas Mroa MD [address] [place] [address] Referral ID Status Reason Start Date Expiration Date V isits Requested Visits Authorized [id number] Closed PCP Requested Referral 04/25/2024 04/25/2025 1 [...] Care Teams (unrecognized sec tion and content) Fermentation Scientist Relationship Specialty Start Date End Date Stas Mora MD [address] [facility] [place] [address] PCP - General 08/02/08, Pharmacist [address] [place] [address] Pharmacist Pharmacy 10/19/19 Fermentation Scientist Relationship Specialty Start Date End Date Stas Mora MD [address] [place] [address] PCP - General 08/02/08, Pharmacist [address]162 [place] [address] Pharmacist Pharmacy 10/19/19 Fermentation Scientist Relationship Specialty Start Date End Date Stas Mora MD [address] [place] [address] PCP - General 08/02/08, Pharmacist [address]30 [place] [address] Pharmacist Pharmacy 10/19/19 Fermentation Scientist Relationship Specialty Start Date End Date Stas Mora MD [address] [place] [address] PCP - General 08/02/08, Pharmacist [address]122 [place] [address] Pharmacist Pharmacy 10/19/19 Fermentation Scientist Relationship Specialty Start Date End Date Stas Mora MD [address] [place] [address] PCP - General 08/02/08, Pharmacist [address]164 [place] [address] Pharmacist Pharmacy 10/19/19 Fermentation Scientist Relationship Specialty Start Date End Date Stas Mora MD [address] [facility] [place] [address] PCP - General 08/02/08, Pharmacist [address]841 [place] [address] Pharmacist Pharmacy 10/19/19 Fermentation Scientist Relationship Specialty Start Date End Date Stas Mora MD [address] [facility] [place] [address] PCP - General 08/02/08, Pharmacist 8[address]87 [place] [address] Pharmacist Pharmacy 10/19/19 Fermentation Scientist Relationship Specialty Start Date End Date Stas Mora MD [address] [place] [address] PCP - General 08/02/08, Pharmacist [address]76 [place] [address] Pharmacist Pharmacy 10/19/19 Fermentation Scientist Relationship Specialty Start Date End Date Stas Mora MD [address] [facility] [place] [address] PCP - General 08/02/08, Pharmacist [address]016 [place] [address] Pharmacist Pharmacy 10/19/19 Fermentation Scientist Relationship Specialty Start Date End Date Stas Mora MD [address] [facility] [place] [address] PCP - General 08/02/08, Pharmacist 61857 [place] [address] Pharmacist Pharmacy 10/19/19 Fermentation Scientist Relationship Specialty Start Date End Date Stas Mora MD [address] [facility] [place] [address] PCP - General 08/02/08, Pharmacist [address]1835 [place] [address] Pharmacist Pharmacy 10/19/19 Fermentation Scientist Relationship Specialty Start Date End Date Stas Mroa MD [address] [facility] [place] [address] PCP - General 08/02/08, Pharmacist 52699 [place] [address] Pharmacist Pharmacy 10/19/19 Fermentation Scientist Relationship Specialty Start Date End Date Stas Mora MD [address] [facility] [place] [address] PCP - General 08/02/08, Pharmacist 24247 [place] [address] Pharmacist Pharmacy 10/19/19 Fermentation Scientist Relationship Specialty Start Date End Date Stas Mora MD [address] [place] [address] PCP - General 08/02/08, Pharmacist 21989 [place] [address] Pharmacist Pharmacy 10/19/19 Fermentation Scientist Relationship Specialty Start Date End Date Stas Mora MD [address] [facility] [place] [address] PCP - General 08/02/08, Pharmacist [address]3972 [place] [address] Pharmacist Pharmacy 10/19/19 Fermentation Scientist Relationship Specialty Start Date End Date Stas Mora MD [address] [facility] [address] PCP - General 08/02/08, Pharmacist [address]2375 [place] [address] Pharmacist Pharmacy 10/19/19 Fermentation Scientist Relationship Specialty Start Date End Date Stas Mora MD [address] [facility] [address] PCP - General 08/02/08, Pharmacist [address] [place] [address] Pharmacist Pharmacy 10/19/19 Fermentation Scientist Relationship Specialty Start Date End Date Stas Mora MD [address] [place] [address] PCP - General 08/02/08, Pharmacist [address]65 [place] [address] Pharmacist Pharmacy 10/19/19 Fermentation Scientist Relationship Specialty Start Date End Date Stas Mora MD [address] [place] [address] PCP - General 08/02/08, Pharmacist [address]84 [place] [address] Pharmacist Pharmacy 10/19/19 Fermentation Scientist Relationship Specialty Start Date End Date Stas Mora MD [address] [place] [address] PCP - General 08/02/08, Pharmacist [address] [place] [address] Pharmacist Pharmacy 10/19/19 Fermentation Scientist Relationship Specialty Start Date End Date Stas Mora MD [address] [place] [address] PCP - General 08/02/08, Pharmacist [address] [place] [address] Pharmacist Pharmacy 10/19/19 Team Status: Active Member Role Status Dates Dr. Stas Mora MD Family Provider Active Dr. Stas Mora MD Primary Care Provider Active Team Status: Inactive Member Role Status Dates Dr. Stas Mora MD Primary Care Provider Active Dr. Brian Cunningham , DO Emergency Provider Active Fermentation Scientist Relationship Specialty Start Date End Date Stas Mora MD [address] [facility] [address] PCP - General 08/02/08, Pharmacist [address]1864 [place] [address] Pharmacist Pharmacy 10/19/19 Fermentation Scientist Relationship Specialty Start Date End Date Stas Mora MD [address] [facility] [place] [address] PCP - General 08/02/08, Pharmacist [address] [place] [address] Pharmacist Pharmacy 10/19/19 Fermentation Scientist Relationship Specialty Start Date End Date Stas Mora MD [address] [place] [address] PCP - General 08/02/08, Pharmacist [address] [place] [address] Pharmacist Pharmacy 10/19/19 Fermentation Scientist Relationship Specialty Start Date End Date Stas Mora MD [address] [place] [address] PCP - General 08/02/08, Pharmacist [address] [place] [address] Pharmacist Pharmacy 10/19/19 Fermentation Scientist Relationship Specialty Start Date End Date Stas Mora MD [address] [facility] [place] [address] PCP - General 08/02/08, Pharmacist 48481 [place] [address] Pharmacist Pharmacy 10/19/19 Fermentation Scientist Relationship Specialty Start Date End Date Stas Mora MD [address] [place] [address] PCP - General 08/02/08, Pharmacist [address] [place] [address] Pharmacist Pharmacy 10/19/19 Fermentation Scientist Relationship Specialty Start Date End Date Stas Mora MD [address] [place] [address] PCP - General 08/02/08, Pharmacist [address] [place] [address] Pharmacist Pharmacy 10/19/19 Fermentation Scientist Relationship Specialty Start Date End Date Stas Mora MD [address] [place] [address] PCP - General 08/02/08, Pharmacist [address]115 [place] [address] Pharmacist Pharmacy 10/19/19 Fermentation Scientist Relationship Specialty Start Date End Date Stas Mora MD [address] [place] [address] PCP - General 08/02/08, Pharmacist [address] [place] [address] Pharmacist Pharmacy 10/19/19 Fermentation Scientist Relationship Specialty Start Date End Date Stas Mora MD [address] [facility] [address] PCP - General 08/02/08, Pharmacist [address] [place] [address] Pharmacist Pharmacy 10/19/19 Fermentation Scientist Relationship Specialty Start Date End Date Stas Mora MD [address] [facility] [place] [address] PCP - General 08/02/08, Pharmacist 66301 [place] [address] Pharmacist Pharmacy 10/19/19 Fermentation Scientist Relationship Specialty Start Date End Date Stas Mora MD [address] [facility] [address] PCP - General 08/02/08, Pharmacist 24988 [place] [address] Pharmacist Pharmacy 10/19/19 Fermentation Scientist Relationship Specialty Start Date End Date Stas Mora MD [address] [place] [address] PCP - General 08/02/08, Pharmacist [address] [place] [address] Pharmacist Pharmacy 10/19/19 Fermentation Scientist Relationship Specialty Start Date End Date Stas Mora MD [address] [place] [address] PCP - General 08/02/08, Pharmacist [address]00 [place] [address] Pharmacist Pharmacy 10/19/19 Fermentation Scientist Relationship Specialty Start Date End Date Stas Mora MD [address] [place] [address] PCP - General 08/02/08, Pharmacist [address]5725 [place] [address] Pharmacist Pharmacy 10/19/19 Fermentation Scientist Relationship Specialty Start Date End Date Stas Mora MD [address] [place] [address] PCP - General 08/02/08, Pharmacist 50501 [place] [address] Pharmacist Pharmacy 10/19/19 Fermentation Scientist Relationship Specialty Start Date End Date Stas Mora MD [address] [facility] [address] PCP - General 08/02/08, Pharmacist 62669 [place] [address] Pharmacist Pharmacy 10/19/19 Fermentation Scientist Relationship Specialty Start Date End Date Stas Mora MD [address] [place] [address] PCP - General 08/02/08, Pharmacist 19611 [place] [address] Pharmacist Pharmacy 10/19/19 Fermentation Scientist Relationship Specialty Start Date End Date Stas Mora MD [address] [place] [address] PCP - General 08/02/08, Pharmacist [address]9412 [place] [address] Pharmacist Pharmacy 10/19/19 Fermentation Scientist Relationship Specialty Start Date End Date Stas Mora MD [address] [place] [address] PCP - General 08/02/08, Pharmacist 19597 [place] [address] Pharmacist Pharmacy 10/19/19 Fermentation Scientist Relationship Specialty Start Date End Date Stas Mora MD [address] [place] [address] PCP - General 08/02/08, Pharmacist [address]334 [place] [address] Pharmacist Pharmacy 10/19/19 Fermentation Scientist Relationship Specialty Start Date End Date Stas Mora MD [address] [place] [address] PCP - General 08/02/08, Pharmacist [address] [place] [address] Pharmacist Pharmacy 10/19/19 Jenna Fitzpatrick APRN.KITCHENWHERE MAKER [address] [place] [address] Client Analyst [facility] 02/28/24 Fermentation Scientist Relationship Specialty Start Date End Date Stas Mora MD [address] [place] [address] PCP - General 08/02/08, Pharmacist [address]11 [place] [address] Pharmacist Pharmacy 10/19/19 Jenna Fitzpatrick APRN.KITCHENWHERE MAKER [address] [place] [address] Client Analyst Family Medicine 02/28/24 Elvis Kearney APRN.[employer]ITCHENWHERE MAKER [address] [place] [address] Client Analyst [facility] 03/08/24 Fermentation Scientist Relationship Specialty Start Date End Date Stas Mora MD [address] [place] [address] PCP - General 08/02/08, Pharmacist [address] [place] [address] Pharmacist Pharmacy 10/19/19 Jenna Fitzpatrick APRN.KITCHENWHERE MAKER [address] [place] [address] Client Analyst Family Medicine 02/28/24 Elvis Kearney APRN.[employer]EN[employer] MAKER [address] [facility] [address] Client Analyst Family Medicine 03/08/24 Fermentation Scientist Relationship Specialty Start Date End Date Stas Mora MD [address] [place] [address] PCP - General 08/02/08, Pharmacist [address]159 [place] [address] Pharmacist Pharmacy 10/19/19 Jenna Fitzpatrick APRN.KITCHENWHERE MAKER [address] [place] [address] Client Analyst Family Medicine 02/28/24 Elvis Kearney APRN.KITCHENWHERE MAKER [address] [place] [address] Client Analyst [facility] 03/08/24 Fermentation Scientist Relationship Specialty Start Date End Date Stas Mora MD [address] [place] [address] PCP - General 08/02/08, Pharmacist [address]24 [place] [address] Pharmacist Pharmacy 10/19/19 Jenna Fitzpatrick INSTRUMENT REPAIR SPECIALIST.KITCHENWHERE MAKER [address] [place] [address] Client Analyst Family Medicine 02/28/24 Elvis Kearney APRN.KITCHENWHERE MAKER [address] [place] [address] Client Analyst Family Medicine 03/08/24 Fermentation Scientist Relationship Specialty Start Date End Date Stas Mora MD [address] [place] [address] PCP - General 08/02/08, Pharmacist [address]52 [place] [address] Pharmacist Pharmacy 10/19/19 Jenna Fitzpatrick APRN.KITCHENWHERE MAKER [address] [place] [address] Client Analyst Family Medicine 02/28/24 Elvis Kearney APRN.KITCHENWHERE MAKER [address] [place] [address] [facility]/08/[facility] Fermentation Scientist Relationship Specialty Start Date End Date Stas Mora MD [address] [place] [address] PCP - General 08/02/08, Pharmacist [address]108 [place] [address] Pharmacist Pharmacy 10/19/19 Jenna Fitzpatrick APRN.KITCHENWHERE MAKER [address] [place] [address] Client Analyst Family Medicine 02/28/24 Elvis Kearney APRN.KITCHENWHERE MAKER [address] [place] [address] Client Analyst [facility] 03/08/24 Fermentation Scientist Relationship Specialty Start Date End Date Stas Mora MD [address] [place] [address] PCP - General 08/02/08, Pharmacist 15494 [place] [address] Pharmacist Pharmacy 10/19/19 Jenna Fitzpatrick APRN.KITCHENWHERE MAKER [address] [place] [address] Client Analyst Family Medicine 02/28/24 Elvis Kearney APRN.[employer]ITCHEN[employer] MAKER [address] [place] [address] Client Analyst Family [facility] 03/08/24 Fermentation Scientist Relationship Specialty Start Date End Date Stas Mora MD [address] [place] [address] PCP - General 08/02/08, Pharmacist [address] [place] [address] Pharmacist Pharmacy 10/19/19 Jenna Fitzpatrick APRN.KITCHENWHERE MAKER [address] [place] [address] Client Analyst [facility] 02/28/24 Elvis Kearney APRN.KITCHENWHERE MAKER [address] [place] [address] [facility] 03/08/24 Fermentation Scientist Relationship Specialty Start Date End Date Stas Mora MD [address] [place] [address] PCP - General 08/02/08, Pharmacist [address]25 [place] [address] Pharmacist Pharmacy 10/19/19 Jenna Fitzpatrick APRN.KITCHENWHERE MAKER [address] [place] [address] Client Analyst Family Medicine 02/28/24 Elvis Kearney APRN.KITCHENWHERE MAKER [address] [facility] [place] [address] Client Analyst Family Medicine 03/08/24 Fermentation Scientist Relationship Specialty Start Date End Date Stas Mora MD [address] [place] [address] PCP - General 08/02/08, Pharmacist [address]316 [place] [address] Pharmacist Pharmacy 10/19/19 Jenna Fitzpatrick INSTRUMENT REPAIR SPECIALIST.KITCHENWHERE MAKER [address] [place] [address] Client Analyst Family Medicine 02/28/24 Elvis Kearney APRN.KITCHENWHERE MAKER [address] [place] [address] Client Analyst [facility] 03/08/24 Fermentation Scientist Relationship Specialty Start Date End Date Stas Mora MD [address] [place] [address] PCP - General 08/02/08, Pharmacist [address] [place] [address] Pharmacist Pharmacy 10/19/19 Jenna Fitzpatrick, INSTRUMENT REPAIR SPECIALIST.KITCHENWHERE MAKER [address] [place] [address] Client Analyst Family Medicine 02/28/24 Elvis Kearney APRN.KITCHENWHERE MAKER [address] [place] [address] Client Analyst Family Medicine 03/08/24 Fermentation Scientist Relationship Specialty Start Date End Date Stas Mora MD [address] [place] [address] PCP - General 08/02/08, Pharmacist [address]18 [place] [address] Pharmacist Pharmacy 10/19/19 Jenna Fitzpatrick APRN.KITCHENWHERE MAKER [address] [place] [address] Client Analyst Family [facility] 02/28/24 Elvis Kearney INSTRUMENT REPAIR SPECIALIST.KITCHENWHERE MAKER [address] [place] [address] [facility] 03/08/24 Fermentation Scientist Relationship Specialty Start Date End Date Stas Mora MD [address] [place] [address] PCP - General 08/02/08, Pharmacist [address]71 [place] [address] Pharmacist Pharmacy 10/19/19 Jenna Fitzpatrick INSTRUMENT REPAIR SPECIALIST.KITCHENWHERE MAKER [address] [place] [address] [facility] 02/28/24 Elvis Kearney INSTRUMENT REPAIR SPECIALIST.KITCHENWHERE MAKER [address] [place] [address] [facility] 03/08/24 Fermentation Scientist Relationship Specialty Start Date End Date Stas Mora MD [address] [place] [address] PCP - General 08/02/08, Pharmacist [address]34 [place] [address] Pharmacist Pharmacy 10/19/19 Jenna Fitzpatrick, INSTRUMENT REPAIR SPECIALIST.KITCHENWHERE MAKER [address] [place] [address] Client Analyst Family Medicine 02/28/24 Elvis Kearney APRN.KITCHENWHERE MAKER [address] [place] [address] Client Analyst Family Medicine 03/08/24 Fermentation Scientist Relationship Specialty Start Date End Date Stas Mora MD [address] [place] [address] PCP - General 08/02/08, Pharmacist [address] [place] [address] Pharmacist Pharmacy 10/19/19 Jenna Fitzpatrick APRN.KITCHENWHERE MAKER [address] [place] [address] Client Analyst Family Medicine 02/28/24 Elvis Kearney INSTRUMENT REPAIR SPECIALIST.KITCHENWHERE MAKER [address] [place] [address] Client Analyst Family [facility] 03/08/24 Fermentation Scientist Relationship Specialty Start Date End Date Stas Mora MD [address] [place] [address] PCP - General 08/02/08, Pharmacist [address]59 [place] [address] Pharmacist Pharmacy 10/19/19 Jenna Fitzpatrick INSTRUMENT REPAIR SPECIALIST.KITCHENWHERE MAKER [address] [place] [address] Client Analyst Family Medicine 02/28/24 Elvis Kearney APRN.KITCHENWHERE MAKER [address] [place] [address] Client Analyst Family Medicine 03/08/24 Fermentation Scientist Relationship Specialty Start Date End Date Stas Mora MD [address] [place] [address] PCP - General 08/02/08, Pharmacist [address]36 [place] [address] Pharmacist Pharmacy 10/19/19 Elvis Kearney APRN.KITCHENWHERE MAKER [address] [place] [address] [facility] 03/08/24 Fermentation Scientist Relationship Specialty Start Date End Date Stas Mora MD [address] [place] [address] PCP - General 08/02/08, Pharmacist [address] [place] [address] Pharmacist Pharmacy 10/19/19 Elvis Kearney APRN.KITCHENWHERE MAKER [address] [place] [address] [facility] 03/08/24 Team Status: Active Member Role Status [...] Provider Active Sta rt: September 06, 2024 Fermentation Scientist Relationship Specialty Start Date End Date Stas Mora MD [address] [place], [place] [address] PCP - General 08/02/08 13, Pharmacist [address] [place], [place] [address] Pharmacist Pharmacy 10/19/19 Elvis Kearney APRN.CNP [address] [place], [place] [address] Client Analyst Family Medicine 03/08/24 Team Status: Active Member [...] 2024 End: September 07, 2024 Halina Carmona TRAINING PROGRAM MANAGER, TRAINING PROGRAM MANAGER-C Attending Provider Active Start: September 07, 2024 [...] 2024 End: September 08, 2024 Halina Carmona TRAINING PROGRAM MANAGER, TRAINING PROGRAM MANAGER-C Attending Provider Active Start: September 08, 2024 [...] End: September 30, 2024 Halina Carmona NP TRAINING PROGRAM MANAGER-C Attending Provider Active Start: September 30, 2024 [...] 2024 End: October 20, 2024 Halina Carmona TRAINING PROGRAM MANAGER, TRAINING PROGRAM MANAGER-C Attending Provider Active Start: October 20, 2024 [...] 2024 End: September 30, 2024 Halina Carmona TRAINING PROGRAM MANAGER, TRAINING PROGRAM MANAGER-C Attending Provider Active Start: September 30, 2024 [...] 2024 End: October 20, 2024 Halina Carmona TRAINING PROGRAM MANAGER, TRAINING PROGRAM MANAGER-C Attending Provider Active Start: October 20, 2024 [...] Status Dates Dr. Stas Moar MD Primary care physician Active Start: September [...] 2024 End: September 30, 2024 Halina Carmona TRAINING PROGRAM MANAGER, TRAINING PROGRAM MANAGER-C Attending physician Active Start: September 30, 2024 [...] End: October 20, 2024 Halina Carmona NP, TRAINING PROGRAM MANAGER-C Attending physician Active Start: October 20, 2024 [...] End: November 24, 2024 Halina Carmona NP TRAINING PROGRAM MANAGER-C Attending physician Active Start: November 24, 2024 [...] BE BASED ON THE PRIMARY CLINICAL RECORDS. [employer] provides no warranty or guarantee of the accuracy or completeness of information in this document.
[2025-03-20 07:03] LABS: INR Fingerstick 5.6
[2025-03-20 08:07] LABS: Prothrombin Time (Protime)PT. 41.5 SECONDS (11.7-14.9)
== END ==
LOC: OLS.WHLCAR 04:00
PROVIDERS: PCP Family Medicine; Referring Provider Internal Medicine; Visit Provider Internal Medicine
DX: I48.91 Unspecified atrial fibrillation (principal)
CPT/HCPCS: 36415; 36416; 85610